=== PATIENT | male | born 1955 | race Native Hawaiian/Other Pacific Islander ===

== ENCOUNTER → 2017-04-11 14:50 | Inpatient (IN) | payer OTHER ==
[2015-12-21] VITALS (23 sets, daily range): BP systolic 101–149; BP diastolic 57–101; PULSE 64–140; RESP 14–37; TEMP 97.9–98.8; O2SAT 95–100
[2015-12-21 05:59] LABS: AUTOMATED NEUTROPHIL # 7.1 TH/MM3 (1.8-7.7); BASOPHIL % 0.3 % (0.0-2.0); EOSINOPHIL % 0.1 % (0.0-4.0); HEMATOCRIT 46.1 % (39.0-51.0); LYMPH % 11.9 % (9.0-44.0); MEAN CELL VOLUME 82.3 FL (80.0-100.0); MEAN CORPUSCULAR HEMOGLOBIN 27.1 PG (27.0-34.0); MONO % 6.7 % (0.0-8.0); PLATELET COUNT 197 TH/MM3 (150-450); RED CELL DISTRIBUTION WIDTH 14.3 % (11.6-17.2); WHITE BLOOD COUNT 8.7 TH/MM3 (4.0-11.0)
[2015-12-21 06:02] LABS: HEMO FLAGS AUTO DIFF
[2015-12-21 06:10] LABS: APTT (PATIENT) 22.4 SEC (22.6-28.8); PROTHROMBIN TIME - PATIENT 10.5 SEC (9.8-11.4)
--- NOTE | 2015-12-21 06:13 | RADRPT ---
EXAM DATE/TIME: 12/21/2015 05:52 [facility] COMPARISON: No previous studies available for comparison. INDICATIONS : Shortness of breath. MEDICAL HISTORY : Diabetes mellitus type II. Lymphoma. A-Fib SURGICAL HISTORY : None. ENCOUNTER: Initial ACUITY: 1 day PAIN SCORE: 0/10 LOCATION: Bilateral chest FINDINGS: A single view of the chest demonstrates the lungs to be symmetrically aerated without evidence of mas s, infiltrate or effusion. The cardiomediastinal contours are unremarkable. Osseous structures are intact. Old healed left-sided rib fractures. CONCLUSION: No acute intrathoracic disease. Michael Hamilton MD on December 21, 2015 at 6:11 Board Certified Radiologist. This report was verified electronically.
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
[2015-12-21 06:32] LABS: ALKALINE PHOSPHATASE 75 U/L (45-117); ALT (GPT) 28 U/L (12-78); ANION GAP 11 MEQ/L (5-15); AST (GOT) 26 U/L (15-37); BICARBONATE 23.8 MEQ/L (21.0-32.0); BLOOD UREA NITROGEN 19 MG/DL (7-18); CHLORIDE 100 MEQ/L (98-107); GLOMERULAR FILTRATION RATE 86 ML/MIN (>89); SODIUM (NA) 135 MEQ/L (136-145); TOTAL BILIRUBIN ADULT 0.4 MG/DL (0.2-1.0)
[2015-12-21 06:36] LABS: BANDS 6 % (0-6); EOSINOPHILS 1 % (0-4); METAMYELOCYTES 3 % (0-1); MYELOCYTES 2 % (0-0); NEUTROPHIL # MANUAL DIFF 7.4 TH/MM3 (1.8-7.7); PLATELET ESTIMATE SMEAR NORMAL (NORMAL); PLATELET MORPHOLOGY NORMAL (NORMAL); POLYS (SEG NEUTROPHILS) 74 % (16-70); SCAN/DIFF FINAL DIFF MANUAL; WBC DIFF SAMPLE 100
--- NOTE | 2015-12-21 06:41 | RADRPT ---
EXAM DATE/TIME: 12/21/2015 06:01 [facility] COMPARISON: CT BRAIN W/O CONTRAST, December 07, 2015, 17:22. MRI BRAIN W & W/O CONTRAST, December 07, 2015, 19:07. CT BR AIN W/O CONTRAST, December 11, 2015, 19:42. INDICATIONS : Slurred speech, altered mental status. RADIATION DOSE: 40.68 CTDIvol (mGy) MEDICAL HISTORY : Stroke. Diabetes mellitus type 2. Hypertension.Posterior brain tumor, Lymphoma. SURGICAL HISTORY : Recent brain biopsy. ENCOUNTER: Initial ACUITY: 1 day PAIN SCALE: 3/10 LOCATION: occipital TECHNIQUE: Multiple contiguous axial images were obtained of the head. Using automated exposure control and adj ustment of the mA and/or kV according to patient size, radiation dose was kept as low as reasonably a chievable to obtain optimal diagnostic quality images. FINDINGS: Today's exam is compared to the prior study. There is a new area of decreased density involving the l eft occipital lobe suggestive of a nonhemorrhagic infarction. The area of decreased density in the ri ght occipital lobe has increased in size compared to the prior exam. No focal or acute intracranial h emorrhage is demonstrated. There is no mass effect or midline shift. The ventricles are normal in siz e and midline in position. There is a juan jose hole on the right occipital bone consisting with patient's recent prior surgery. CONCLUSION: 1. No focal or acute intracranial hemorrhage. 2. There is a new area of decreased density in the left occipital lobe suggestive of a recent nonhemo rrhagic infarction. 3. The decreased density in the previously noted right occipital lobe has increased in size. Michael Hamilton MD on December 21, 2015 at 6:34 Board Certified Radiologist. This report was verified electronically.
--- NOTE | 2015-12-21 07:59 | PD ---
Physical Exam Narrative Assumed care of the patient at shift change. The plan was to admit the patient for worsening stroke. However the patient's critical condition deteriorated to the point where he was not really protecting his airway. He had very sonorous respirations and cannot follow commands. He is becoming more obtunded. I intubated the patient and I am re-scanning his head to look for hemorrhagic transformation. ICU has been paged. I am following results of the follow-up chest x-ray. ABG and urinalysis are pending. CRITICAL CARE NOTE: With evaluation of the patient, labs, EKG, receipt of radiologic studies, administration of medications, reevaluation the patient and discussion of the patient with the admitting physicians, the total critical care time was 35 minutes. Time to perform other separately billable procedures was not included in the critical care time. Data Data Last Documented VS Orders Electrocardiogram (12/21/15 05:46) Prothrombin Time / Inr (Pt) (12/21/15 05:46) Act Partial Throm Time (Ptt) (12/21/15 05:46) Complete Blood Count With Diff (12/21/15 05:46) Comprehensive Metabolic Panel (12/21/15 05:46) Troponin I (12/21/15 05:46) Urinalysis - C+S If Indicated (12/21/15 05:46) Ct Brain W/O Iv Contrast(Rout) (12/21/15 05:46) Chest, Single Ap (12/21/15 05:46) Ecg Monitoring (12/21/15 05:46) Iv Access Insert/Monitor (12/21/15 05:46) Oxygen Administration (12/21/15 05:46) Oximetry (12/21/15 05:46) Sodium Chloride 0.9% Flush (Ns Flush) (12/21/15 06:00) Ondansetron Inj (Zofran Inj) (12/21/15 06:22) Ondansetron Inj (Zofran Inj) (12/21/15 06:30) Diltiazem Inj (Cardizem Inj) (12/21/15 06:30) Vital Signs (Adult) Q15MX4,Q4H (12/21/15 06:28) ^ Methods Engineer / Telemetry (12/21/15 06:28) Cardiac Rhythm UMER.Q8H (12/21/15 06:28) ^ Notify Dr: Other (12/21/15 06:28) Diltiazem Inj (Cardizem Inj) (12/21/15 06:30) Acetaminophen (Tylenol) (12/21/15 06:45) Lorazepam Inj (Ativan Inj) (12/21/15 07:15) Etomidate Inj (Amidate Inj) (12/21/15 07:37) Succinylcholine Inj (Quelicin Inj) (12/21/15 07:37) Propofol 1000 Mg/100 Ml Inj (Diprivan 10 (12/21/15 07:46) Chest, Single Ap (12/21/15 ) Arterial Blood Gas (Abg) (12/21/15 ) Urinary Catheter Management UMER.Q8H (12/21/15 07:45) Admit Order (Ed Use Only) (12/21/15 08:06) Labs Dawood Park MD Dec 21, 2015 07:59 Chest, Single Ap (12/21/15 ) Ct Brain W/O Iv Contrast(Rout) (12/21/15 ) Arterial Blood Gas (Abg) (12/21/15 ) Urinary Catheter Management UMER.Q8H (12/21/15 07:45) Labs Laboratory Tests Test 12/21/15 05:50 White Blood Count 8.7 TH/MM3 Red Blood Count 5.60 MIL/MM3 Hemoglobin 15.2 GM/DL Hematocrit 46.1 % Mean Corpuscular Volume 82.3 FL Mean Corpuscular Hemoglobin 27.1 PG Mean Corpuscular Hemoglobin 33.0 % Concent Red Cell Distribution Width 14.3 % Platelet Count 197 TH/MM3 Mean Platelet Volume 8.8 FL Neutrophils (%) (Auto) 81.0 % Lymphocytes (%) (Auto) 11.9 % Monocytes (%) (Auto) 6.7 % Eosinophils (%) (Auto) 0.1 % Basophils (%) (Auto) 0.3 % Neutrophils # (Auto) 7.1 TH/MM3 Lymphocytes # (Auto) 1.0 TH/MM3 Monocytes # (Auto) 0.6 TH/MM3 Eosinophils # (Auto) 0.0 TH/MM3 Basophils # (Auto) 0.0 TH/MM3 CBC Comment AUTO DIFF Differential Total Cells 100 Counted Neutrophils % (Manual) 74 % Band Neutrophils % 6 % Lymphocytes % 7 % Monocytes % 7 % Eosinophils % 1 % Neutrophils # (Manual) 7.4 TH/MM3 Metamyelocytes 3 % Myelocytes 2 % Differential Comment FINAL DIFF MANUAL Platelet Estimate NORMAL Platelet Morphology Comment NORMAL Red Cell Morphology Comment NORMAL Prothrombin Time 10.5 SEC Prothromb Time International 1.0 RATIO Ratio Activated Partial 22.4 SEC Thromboplast Time Sodium Level 135 MEQ/L Potassium Level 5.0 MEQ/L Chloride Level 100 MEQ/L Carbon Dioxide Level 23.8 MEQ/L Anion Gap 11 MEQ/L Blood Urea Nitrogen 19 MG/DL Creatinine 0.90 MG/DL Estimat Glomerular Filtration 86 ML/MIN Rate Random Glucose 212 MG/DL Calcium Level 8.7 MG/DL Total Bilirubin 0.4 MG/DL Aspartate Amino Transf 26 U/L (AST/SGOT) Alanine Aminotransferase 28 U/L (ALT/SGPT) Alkaline Phosphatase 75 U/L Troponin I LESS THAN 0.02 NG/ML Total Protein 7.5 GM/DL Albumin 3.1 GM/DL Dawood Park MD Dec 21, 2015 07:59
[2015-12-21] MEDS: PROPOFOL 1000 MG/100 ML BTL IV PRN ×4 (08:25→22:12)
[2015-12-21 08:35] LABS: BLOOD GAS BASE EXCESS -1.8 mmol/L (-2-2); BLOOD GAS HCO3 22 mmol/L (22-26); BLOOD GAS METHEMOGLOBIN 2.3 % (0-2); BLOOD GAS O2 HGB SATURATION 93 % (90-100); BLOOD GAS OXYGEN CONTENT 18.4 Vol % (12.0-20.0); BLOOD GAS PCO2 35 mmHg (38-42); BLOOD GAS PO2 100 mmHG (61-120); BLOOD GAS TOTAL HGB 14.1 G/DL (12.0-16.0); CRITICAL VALUE NO; DRAW SITE LT RADIAL; FIO2 40 %; NUMBER OF ARTERIAL PUNCTURES 1; OXYGEN DEVICE VENTILATOR; STAT NO; TEMP CORR TO 98.6; ULNAR PULSE PRESENT; VENT SETTINGS AC/14/550/PEEP5
[2015-12-21 08:38] LABS: BLOOD, URINE NEG (NEG); GLUCOSE,URINE 1000 mg/dL (NEG); KETONE, URINE NEG (NEG); NITRITE,URINE NEG (NEG); PH, URINE 5.5 (5.0-8.5); URINE COLOR YELLOW (YELLW/STRAW)
[2015-12-21 08:41] LABS: COMMENT (UR) CATH-CULT NOT IND; CULTURE IF INDICATED CATH CULTURE NOT IND
--- NOTE | 2015-12-21 10:16 | RADRPT ---
EXAM DATE/TIME: 12/21/2015 07:46 [facility] COMPARISON: CHEST SINGLE AP, December 21, 2015, 5:52. INDICATIONS : Endotracheal tube placement MEDICAL HISTORY : Diabetes mellitus type II. Lymphoma. A-Fib SURGICAL HISTORY : None. ENCOUNTER: Initial ACUITY: 1 day PAIN SCORE: Non-responsive. LOCATION: Bilateral chest FINDINGS: An endotracheal tube has been placed and has its tip approximately 4 cm above the geno. Nasogastri c tube has its tip in the stomach. The heart and mediastinal structures are normal. The pulmonary v ascularity is also normal. The lungs are clear. Old healed fractures of the left rib cage are noted . CONCLUSION: 1. No acute cardiopulmonary disease. 2. Endotracheal tube in good position 4 cm above the geno. 3. Nasogastric tube in good position in the stomach. Eduardo Valenzuela MD on December 21, 2015 at 9:50 Board Certified Radiologist. This report was verified electronically.
--- NOTE | 2015-12-21 12:44 | RADRPT ---
EXAM DATE/TIME: 12/21/2015 10:00 [place] Corrected on: December 21, 2015; [facility] COMPARISON: MRI BRAIN W & W/O CONTRAST, December 07, 2015, 19:07. INDICATIONS : Mass. Altered mental status. CONTRAST: 18 cc Omniscan (gadodiamide) IV MEDICAL HISTORY : Hypertension. Diabetes mellitus type 2. Lymphoma. SURGICAL HISTORY : Left elbow. Ear surgery. ENCOUNTER: Initial ACUITY: 1 day PAIN SCORE: 0/10 LOCATION: cranial TECHNIQUE: Multiplanar, multisequence MRI of the brain was performed both prior to and following the administrat ion of paramagnetic contrast. FINDINGS: There is evidence of new restricted diffusion involving the left occipital lobe as well as enlargeme nt of the area of restricted diffusion within the right occipital lobe compared to the previous MRI d ated 12/07/15. The findings are suggestive of new left occipital infarct and possible worsening area of infarction within the right occipital lobe. There is evidence of enhancement of the right occipit al lobe which is indeterminate. The patient has had recent biopsy of the right occipital lobe to rul e out tumor but biopsy results are pending. There is a tiny focus of restricted diffusion within the right cerebellar hemisphere suggesting acute/subacute lacunar infarct. The ventricles, sulci and ci sterns are otherwise unremarkable. There is signal abnormality within the right occipital lobe in th e biopsy bed on the SWI images suggesting some hemorrhage related to the biopsy. No midline shift or extra-axial fluid collections are noted. There are no additional areas of enhancement within the bra in parenchyma. CONCLUSION: 1. New area of restricted diffusion within the left occipital lobe suggesting acute infarction. 2. Interval enlargement of the area of restricted diffusion within the right occipital lobe suggestin g probable extension of right occipital infarction. Underlying enhancement of the right occipital lo be is slightly worse than on the previous examination and is nonspecific. Biopsy has been performed in this region of the brain and the results are pending. 3. Tiny focal area of restricted diffusion within the right cerebellar hemisphere consistent with pro bable acute/subacute lacunar infarct. 3. There is signal abnormality on the SWI sequence within the right occipital lobe suggesting some h emorrhage in the biopsy bed. 4. No midline shift or extra axial fluid collections. The findings of the examination were discussed with Dr. Langston at 12: 20 p.m. on 12/21/15. Eduardo Valenzuela MD on December 21, 2015 at 12:13 Board Certified Radiologist. This report was verified electronically. Eduardo Valenzuela MD on December 21, 2015 at 14:56 Board Certified Radiologist. This report was verified electronically.
[2015-12-21] MEDS: SODIUM CHLOR 0.9% 1000 ML INJ 1,000 ML IV SCH (13:00)
[2015-12-21] MEDS: RESP: ALBUTEROL 2.5 MG/IPRATROPIUM 0.5 MG NEB (SCH) INH ×3 (13:00→20:29)
[2015-12-21] MEDS: levETIRAcetam 500 MG TAB PO SCH ×2 (13:45→21:43)
--- NOTE | 2015-12-21 14:22 | MH ---
cc: FRIEDA SEGOVIA M.D. DATE OF ADMISSION: 12/21/2015 DATE OF 1955 HISTORY OF PRESENT ILLNESS The patient is a 59-year-old male with past medical history of paroxysmal atrial fibrillation, hypertension, stage III a non-Hodgkin's lymphoma status post a chemotherapy last year. He received Rituxan CHOP. He presented to [facility] emergency department with altered mental status. Most of the history was obtained from reviewing medical records as the patient is poor historian. When he woke up of 4 o'clock this morning the patient had some right facial droop associated with headaches. Due to altered mental status CT scan of the brain was obtained which showed no focal or acute intracranial hemorrhage. However, there is an new area of decreased density in the left occipital lobe, suggestive of recent non hemorrhagic infarction and the decreased density in the previously noted right occipital lobe has increased in size. The patient was recently admitted back on December 06 with similar presentation and he had a right occipital juan jose hole brain biopsy by Dr. Marin on December 13. The pathology results pending. The patient became the patient noted to have very sonorous respirations and can and follow any commands in addition he was obtunded. He was subsequently intubated by the emergency department physician and MRI of the brain was obtained which showed a new area of restricted diffusion within the left occipital lobe suggesting acute infarction. No evidence of any acute hemorrhage, midline shift or a fluid collection. When seen the patient is sedated with Diprivan and on full mechanical ventilation. ABG post intubation showed a pH of 7.41, CO2 35, pAO2 100, bicarb of 22, saturation 93% on assist control ventilation rate of 14, tidal volume 550, PEEP five, FIO2 of 40%. RADIOLOGIC: Chest x-ray Post intubation showed ET tube above the geno in no acute cardiopulmonary process. His last echocardiogram was obtained in January of last year which showed an EF of 60% with no regional wall motion abnormalities. EKG on arrival showed A fib with RVR at rate of 114 beats per minute. The patient was given Cardizem 20 mg IV push in the emergency department and was initially placed on Cardizem drip. However, now is off. PAST MEDICAL HISTORY: Past medical history is significant for stage III a non-Hodgkin's lymphoma status post chemotherapy paroxysmal atrial fibrillation hypertension diabetes mellitus. PAST SURGICAL HISTORY Previous brain biopsy on December 13. Previous left arm surgery. ALLERGIES NO KNOWN DRUG ALLERGIES. FAMILY HISTORY Noncontributory. SOCIAL HISTORY Nondrinker smokes about one half-pack of cigarettes per day per records. MEDICATIONS: Medications reviewed REVIEW OF SYSTEMS As per HPI. Rest of the systems unobtainable. PHYSICAL EXAMINATION 59- year-old male intubated for airway protection. VITAL SIGNS: Afebrile, pulse of 85, blood pressure 119/79, saturation 100% vent setting. Assist control rate of 14, tidal volume 550, PEEP of 5, FIO2 of 40%. HEAD, EYES, EARS, NOSE, AND THROAT: Atraumatic, normocephalic Pupils equal, round, reactive to light and accommodation extraocular muscles intact. Conjunctivae pink. Nonicteric sclerae. Oral mucosa within normal. NECK: Supple. No JVD, adenopathy or thyromegaly. Trachea midline. Orally intubated. CARDIOVASCULAR SYSTEM: Irregularly irregular. Normal S1-S2. No murmurs, rubs or gallops noted. LUNGS: Pulmonary exam bilateral clear entry, equal. No rales or wheezing. ABDOMEN: Soft, nontender, no distension, positive bowel sounds. EXTREMITIES: No cyanosis, clubbing or edema. NEUROLOGIC: Intubated and sedated with Diprivan. LABORATORY DATA Sodium of 135, potassium 5, chloride 100, CO2 23, BUN 19, creatinine 0.9, glucose of 212, troponin less than 0.02. WBC 8.7, hemoglobin 15, hematocrit 46, platelet count 197, INR 1. PT 10.5, PTT 22.4. RADIOGRAPHY Chest x-ray Post intubation showed ET tube above the geno. No acute cardiopulmonary process. CT scan of the brain showed no focal or acute intracranial hemorrhage. No area of decreased density in the left occipital lobe suggestive of recent non hemorrhagic infarction. MRI of the brain showed new area of restricted diffusion within the left occipital lobe suggesting acute infarction and the area of restricted diffusion within the right occipital lobe, enlarged with probable extension of the right occipital infarction. No acute hemorrhage, midline shift or any fluid collection. IMPRESSION Altered mental status. Vent dependent respiratory failure. Acute left-sided CVA Stage III a non-Hodgkin's lymphoma status post chemotherapy last year Status post brain biopsy on December 13. Atrial fibrillation. Diabetes mellitus Hypertension RECOMMENDATIONS: 1. Continue with Diprivan infusion and for sedation and daily sedation vacation. 2. Monitor neuro status closely in addition we will consult neurology service. 3. Will continue with Keppra 500 mg b.i.d. 4. We will check carotid Doppler ultrasound bilaterally. 5. Continue with vent support and maintain sats above 92%. 6. Bronchodilators in the form of DuoNeb q. six. 7. We will initiate an ICU vent bundle. 8. ABG and chest x-ray post intubation reviewed. 9. Monitor heart rate and blood pressure closely and maintain MAP greater 65 mmHg. Echocardiogram was performed on December 07 which showed an EF of 60% with no regional wall motion abnormalities. 10. Monitor renal function Is and Os and electrolyte replacement per protocol. Will place on IV fluids in the form of NS at 75 ml an hour. 11. Place on Protonix 40 mg daily and start tube feeds in the form of Glucerna 1.5 with goal rate of 45 ml per hour. 12. Monitor CBC for signs of infections which include fever and WBC. Will hold off on antibiotics at this time. As there is no evidence of any infectious process. The chest x-ray On arrival showed no evidence of any acute cardiopulmonary disease and urinalysis negative for urinary tract infection. 13. We will monitor CBC. In addition we will consult Dr. Whyte from oncology service as the patient is known to them given underlying history of non-Hodgkin's lymphoma. 14. Follow up on pathology results of the brain biopsy that was obtained on December 13, by Dr. Marin. 15. Place on sliding scale insulin with Accu-Chek q. 6-hour for glycemic control. 16. GI prophylaxis with Protonix 40 mg daily and DVT prophylaxis with SCDs. Will hold off on chemical anticoagulation prophylaxis at this time. 17. Place central line if indicated. 18. Critical care time 60 minutes excluding procedures. MD ALECIA Shipley/earl /1:15 PM /1:35 PM
--- NOTE | 2015-12-21 16:18 | MG ---
cc: GUSTAVO PRICE M.D. Lab No: [id number] Date: 12/21/2015 Age: Sex: M Race: TECHNIQUE This is a 17 channel EEG. DESCRIPTION Back rhythm is slow in the delta frequency roughly 3-4 Hz amplitude is about 20-30 microvolts. There are no lateralizing features. There are no epileptiform features. Photic stimulation does not alter the background rhythm. INTERPRETATION Abnormal study consistent with a severe encephalopathy given the degree of delta slowing. MD JAIME Romero/earl /3:01 PM /4:17 PM
--- NOTE | 2015-12-21 17:56 | MB ---
cc: JANET BLANCO DATE OF CONSULTATION 12/21/15 HISTORY OF PRESENT ILLNESS A 59 year old left handed man with a history of hypertension, Non-insulin dependent diabetes, hypercholesterolemia, atrial fibrillation who had a history of lymphoma about a year ago. He was treated with chemo, thought to be lymphoma free, according to the , and then he had some generalized weakness, some rushing sounds in his right ear, some pressure in the right ear. He was admitted last week, was found to have a right occipital abnormality. He actually had that biopsies, results pending. Nevertheless, he went home, felt tired all over, felt a pressure behind his right eye, cam back into the hospital last evening and then evidently got somewhat lethargic and was given some Ativan in the emergency room and eventually wound up being intubated. He had some anxiety in the emergency room also. He was thought to have a right facial droop in the emergency room. His did not think it was anything new. There was some question of weakness on right side and Dr. Luna had seen him before. REVIEW OF SYSTEMS According to his , no history of myocardial infarction. He is not on coumadin. He takes a baby aspirin. No renal, hepatic, pulmonary disease, thyroid disease, lupus, ulcer, seizure or stroke. SOCIAL HISTORY He is a smoker, not a drinker. Lives with his . FAMILY Negative for cancer, seizure or stroke. MEDICATIONS At home, 1. Keppra 2. Steroids. He was on 1. Omeprazole 2. Phenergan 3. Decadron 4. Ativan as needed 5. Habitrol patch 6. Keppra 750 mg twice a day 7. Glucophage 8. Lipitor 9. Vasotec 10. Betapace. PAST MEDICAL HISTORY Seen by Dr. Luna 12/12/15. Had some tingling on the right side of his face, possibly some right-sided weakness at that time. PHYSICAL EXAMINATION VITAL SIGNS: On examination he had recent atrial fibrillation here, just started. Afebrile. 108/57, 14, 77. NECK: No carotid bruits. HEART: Regular rhythm. I do not detect a murmur. NEUROLOGIC: He is intubated and fully sedated. sharp. Pupils are equal. He is flaccid throughout. Toes are mute. No ankle clonus. Fully sedated on Diprivan. LABORATORY DATA Sedimentation rate was normal in 2007. CBC here is normal. HIV has been negative. He has CSF from the biopsy showed 10 white cells, 32 red cells. Basic metabolic profile was essentially normal. Glucose 212. Liver function tests normal. Troponin negative. B12 1400. Thyroid normal on last admission. Coags normal. ABG today - 7.41, 35, 100. IMAGING STUDIES Carotid ultrasound done was negative last month. CAT scan of the brain new left occipital abnormality and the older right occipital abnormality. Bur hole in that right area. Slight hypodensity there. MRI of the brain showed diffusion in the left occipital lobe, some underlying enhancement, tiny right cerebellar infarct that was actually seen on the prior scan I believe in retrospect. It appears to me there is some kind of midline mass whether it is the tongue or something else on the lower cuts also present, either extremely enlarged tongue or a mass there below the tongue on the MRI. IMPRESSION Bilateral occipital old infarcts and right cerebellar infarct with atrial fibrillation, likely the etiology. We will check an MRA of the [place] in the neck to make sure there is no vertebrobasilar stenosis. I note an echocardiogram done on the last admission showed a normal ejection fraction with normal valves and a normal left atrial size. He had the recent biopsy, would have to be cleared by neurosurgery if we could anticoagulate him. We will check an electroencephalogram on him. I will be following him with you in the hospital. We will also check an MR venogram of the brain to make sure there is no venous thrombosis. MD MARINA Marie/ /2:39 PM /5:34 PM
[2015-12-21] MEDS: PANTOPRAZOLE SODIUM 40 MG VIAL IV SCH (18:50)
[2015-12-21] MEDS: INSULIN NovoLIN REGULAR SUPPLEMENTAL SCALE SQ SCH (19:00)
--- NOTE | 2015-12-21 19:25 | EKG ---
Date Performed: 12/21/2015 Time Performed: 05:46:14 PTAGE: 59 years EKG: Atrial fibrillation with rapid ventricular response Compared to previous tracing, the atria l fibrillation is new. Abnormal ECG PREVIOUS TRACING : 12/11/2015 19.48 DOCTOR: Kate Moncada Interpretating Date/Time 12/21/2015 19:24:06
[2015-12-21] MEDS: HEPARIN SODIUM - SQ 10,000 UNITS/ML VIAL SQ SCH (21:43)
[2015-12-22] VITALS (21 sets, daily range): BP systolic 126–161; BP diastolic 79–90; PULSE 80–104; RESP 16–22; TEMP 98.7–99.8; O2SAT 96–100
[2015-12-22] MEDS: INSULIN NovoLIN REGULAR SUPPLEMENTAL SCALE SQ SCH ×4 (01:00→18:50)
[2015-12-22] MEDS: RESP: ALBUTEROL 2.5 MG/IPRATROPIUM 0.5 MG NEB (SCH) INH ×4 (03:17→21:47)
[2015-12-22] MEDS: CHLORHEXIDINE GLUCONATE 2 % 1 PACK (2 CLOTHS) TOP SCH (03:38)
[2015-12-22] MEDS: SODIUM CHLOR 0.9% 1000 ML INJ 1,000 ML IV SCH ×2 (03:38→17:00)
[2015-12-22] MEDS: PROPOFOL 1000 MG/100 ML BTL IV PRN ×2 (03:39→06:25)
[2015-12-22 06:23] LABS: INTERNATIONAL NORMALIZED RATIO 1.1 RATIO; PROTHROMBIN TIME - PATIENT 11.5 SEC (9.8-11.4)
[2015-12-22 06:24] LABS: AUTOMATED NEUTROPHIL # 6.9 TH/MM3 (1.8-7.7); BASOPHIL % 0.2 % (0.0-2.0); EOSINOPHIL % 0.4 % (0.0-4.0); HEMO FLAGS DIFF FINAL; LYMPH % 13.7 % (9.0-44.0); LYMPHOCYTE # 1.2 TH/MM3 (1.0-4.8); MEAN CELL VOLUME 82.5 FL (80.0-100.0); MEAN CORPUSCULAR HGB CONC 32.8 % (32.0-36.0); MONO % 9.3 % (0.0-8.0); NEUT % 76.4 % (16.0-70.0); PLATELET COUNT 153 TH/MM3 (150-450); RED BLOOD COUNT 5.33 MIL/MM3 (4.50-5.90); RED CELL DISTRIBUTION WIDTH 14.5 % (11.6-17.2)
[2015-12-22 06:42] LABS: MAGNESIUM 1.9 MG/DL (1.5-2.5); POTASSIUM 4.1 MEQ/L (3.5-5.1)
--- NOTE | 2015-12-22 08:02 | HHI.CCPN ---
Subjective Remarks/Hospital Course The patient is a 59-year-old male with past medical history of paroxysmal atrial fibrillation, hypertension, stage III a non-Hodgkin's lymphoma status post a chemotherapy last year. He received Rituxan CHOP. He presented to [facility] emergency department with altered mental status. Most of the history was obtained from reviewing medical records as the patient is poor historian. When he woke up of 4 o'clock this morning the patient had some right facial droop associated with headaches. Due to altered mental status CT scan of the brain was obtained which showed no focal or acute intracranial hemorrhage. However, there is an new area of decreased density in the left occipital lobe, suggestive of recent non hemorrhagic infarction and the decreased density in the previously noted right occipital lobe has increased in size. The patient was recently admitted back on December 06 with similar presentation and he had a right occipital juan jose hole brain biopsy by Dr. Marin on December 13. The pathology results pending. The patient became the patient noted to have very sonorous respirations and can and follow any commands in addition he was obtunded. He was subsequently intubated by the emergency department physician and MRI of the brain was obtained which showed a new area of restricted diffusion within the left occipital lobe suggesting acute infarction. No evidence of any acute hemorrhage, midline shift or a fluid collection. When seen the patient is sedated with Diprivan and on full mechanical ventilation. ABG post intubation showed a pH of 7.41, CO2 35, pAO2 100, bicarb of 22, saturation 93% on assist control ventilation rate of 14, tidal volume 550, PEEP five, FIO2 of 40%. Chest x-ray Post intubation showed ET tube above the geno in no acute cardiopulmonary process. His last echocardiogram was obtained in January of last year which showed an EF of 60% with no regional wall motion abnormalities. EKG on arrival showed A fib with RVR at rate of 114 beats per minute. The patient was given Cardizem 20 mg IV push in the emergency department and was initially placed on Cardizem drip. However, now is off. 12/21 No events overnight. Sedated with Diprivan and intubated. Afebrile. For MRA brain , carotids and MRV brain today . Objective - Vital Signs Date Time Temp Pulse Resp B/P Pulse Ox O2 Delivery O2 Flow Rate FiO2 12/22/15 07:28 100 40 12/22/15 06:00 93 12/22/15 04:00 99.1 16 154/86 12/21/15 12:12 Ventilator 12/21/15 07:24 3 I/O 12/21/15 12/21/15 12/21/15 07:59 15:59 23:59 Intake Total 291 ml Output Total 950 ml Balance -659 ml Result Diagram: 12/22/15 0448 12/22/15 0448 Other Results Laboratory Tests Test 12/21/15 12/21/15 12/22/15 08:20 08:24 04:48 Urine Color YELLOW Urine Turbidity CLEAR Urine pH 5.5 Urine Specific [place] 1.019 Urine Protein NEG mg/dL Urine Glucose (UA) 1000 mg/dL Urine Ketones NEG mg/dL Urine Occult Blood NEG Urine Nitrite NEG Urine Bilirubin NEG Urine Urobilinogen LESS THAN 2.0 MG/DL Urine Leukocyte Esterase NEG Urine WBC 1 /hpf Microscopic Urinalysis Comment CATH-CULT NOT IND Blood Gas Puncture Site LT RADIAL Blood Gas Patient Temperature 98.6 Blood Gas HCO3 22 mmol/L Blood Gas Base Excess -1.8 mmol/L Blood Gas Oxygen Saturation 93 % Arterial Blood pH 7.41 Arterial Blood Partial 35 mmHg Pressure CO2 Arterial Blood Partial 100 mmHG Pressure O2 Arterial Blood Oxygen Content 18.4 Vol % Arterial Blood 2.0 % Carboxyhemoglobin Arterial Blood Methemoglobin 2.3 % Blood Gas Hemoglobin 14.1 G/DL Oxygen Delivery Device VENTILATOR Blood Gas Ventilator Setting AC/14/550/PEEP5 Blood Gas Inspired Oxygen 40 % White Blood Count 9.0 TH/MM3 Red Blood Count 5.33 MIL/MM3 Hemoglobin 14.4 GM/DL Hematocrit 44.0 % Mean Corpuscular Volume 82.5 FL Mean Corpuscular Hemoglobin 27.0 PG Mean Corpuscular Hemoglobin 32.8 % Concent Red Cell Distribution Width 14.5 % Platelet Count 153 TH/MM3 Mean Platelet Volume 8.9 FL Neutrophils (%) (Auto) 76.4 % Lymphocytes (%) (Auto) 13.7 % Monocytes (%) (Auto) 9.3 % Eosinophils (%) (Auto) 0.4 % Basophils (%) (Auto) 0.2 % Neutrophils # (Auto) 6.9 TH/MM3 Lymphocytes # (Auto) 1.2 TH/MM3 Monocytes # (Auto) 0.8 TH/MM3 Eosinophils # (Auto) 0.0 TH/MM3 Basophils # (Auto) 0.0 TH/MM3 CBC Comment DIFF FINAL Differential Comment Prothrombin Time 11.5 SEC Prothromb Time International 1.1 RATIO Ratio Sodium Level 134 MEQ/L Potassium Level 4.1 MEQ/L Chloride Level 96 MEQ/L Carbon Dioxide Level 25.0 MEQ/L Anion Gap 13 MEQ/L Blood Urea Nitrogen 20 MG/DL Creatinine 0.78 MG/DL Estimat Glomerular Filtration 102 ML/MIN Rate Random Glucose 114 MG/DL Calcium Level 8.4 MG/DL Magnesium Level 1.9 MG/DL Imaging Last Impressions Head CT 12/21/15545 Signed Impressions: Service Date/Time: December 06:01 - CONCLUSION: 1. No focal or acute intracranial hemorrhage. 2. There is a new area of decreased density in the left occipital lobe suggestive of a recent nonhemorrhagic infarction. 3. The decreased density in the previously noted right occipital lobe has increased in size. Michael Hamilton MD Chest X-Ray 12/21/15545 Signed Impressions: Service Date/Time: December 05:52 - CONCLUSION: No acute intrathoracic disease. Michael Hamilton MD Brain MRI 12/21/15 0000 Signed Impressions: Service Date/Time: December 10:00 - CONCLUSION: 1. New area of restricted diffusion within the left occipital lobe suggesting acute infarction. 2. Interval enlargement of the area of restricted diffusion within the right occipital lobe suggesting probable extension of right occipital infarction. Underlying enhancement of the right occipital lobe is slightly worse than on the previous examination and is nonspecific. Biopsy has been performed in this region of the brain and the results are pending. 3. Tiny focal area of restricted diffusion within the right cerebellar hemisphere consistent with probable acute/subacute lacunar infarct. 3. There is signal abnormality on the SWI sequence within the right occipital lobe suggesting some hemorrhage in the biopsy bed. 4. No midline shift or extra axial fluid collections. The findings of the examination were discussed with Dr. Langston at 12: 20 p.m. on 12/21/15. Eduardo Valenzuela MD Objective Remarks GENERAL: Well-nourished, well-developed patient. SKIN: Warm and dry. HEAD: Normocephalic. EYES: No scleral icterus. No injection or drainage. NECK: Supple, trachea midline. No JVD or lymphadenopathy. Orally intubated CARDIOVASCULAR: Regular rate and rhythm without murmurs, gallops, or rubs. RESPIRATORY: Breath sounds equal bilaterally. No accessory muscle use. GASTROINTESTINAL: Abdomen soft, non-tender, nondistended. MUSCULOSKELETAL: No cyanosis, or edema. BACK: Nontender without obvious deformity. No CVA tenderness. Neuro: Sedated, intubated A/P Assessment and Plan IMPRESSION Altered mental status. Vent dependent respiratory failure. Acute left-sided CVA Stage III a non-Hodgkin's lymphoma status post chemotherapy last year Status post brain biopsy on December 13. Atrial fibrillation. Diabetes mellitus Hypertension Plan Neuro:On Diprivan infusion for sedation and daily sedation vacation. Monitor neuro status closely, Neuro: Dr. De Leon, on Keppra 500 mg b.i.d. EEG 12/20: Severe encephalopathy. For MRA brain, carotids and MRV brain today Pulm: Continue with vent support and maintain sats >92%. Bronchodilators, ICU vent bundle. CV: Monitor HR and BP keep MAP>65mmHg Echo from 12/07 showed an EF of 60% with no regional wall motion abnormalities. : Monitor renal function Is and Os and electrolyte replacement per protocol. On NS at 75 ml an hour. GI: On TF-Glucerna 1.5 with goal rate of 45 ml per hour. ID: Monitor CBC for signs of infections( fever and WBC). CXR on arrival showed no evidence of any acute cardiopulmonary disease and UA negative for UTI Heme: Monitor CBC. Consult Oncology-Dr. Whyte ( [facility]) follow up on path results. s/p brain biopsy on December 13, by Dr. Marin. Endo: On SSI with Accu-Chek q. 6-hour for glycemic control. GI prophylaxis with Protonix 40 mg daily and DVT prophylaxis with SCDs/heparin SQ. Coumadin started by neuro monitor INR/PT CCT 35 mins Wil Langston MD Dec 22, 2015 08:02
[2015-12-22] MEDS: PANTOPRAZOLE SODIUM 40 MG VIAL IV SCH (08:05)
[2015-12-22] MEDS: levETIRAcetam 500 MG TAB PO SCH ×2 (08:05→20:52)
[2015-12-22] MEDS: HEPARIN SODIUM - SQ 10,000 UNITS/ML VIAL SQ SCH ×2 (08:05→20:52)
--- NOTE | 2015-12-22 08:46 | HHI.PR ---
Subjective Remarks afib Objective Vital Signs Date Time Temp Pulse Resp B/P Pulse Ox O2 Delivery O2 Flow Rate FiO2 12/22/15 07:28 100 40 12/22/15 06:00 93 12/22/15 04:00 91 12/22/15 04:00 99.1 91 16 154/86 100 12/22/15 03:20 99 40 12/22/15 02:00 86 12/22/15 01:10 99 40 12/22/15 00:00 80 12/22/15 00:00 98.7 80 16 142/87 100 12/21/15 22:24 99 40 12/21/15 22:00 75 12/21/15 20:35 99 40 12/21/15 20:00 98.8 70 16 122/79 100 12/21/15 20:00 70 12/21/15 18:00 66 12/21/15 16:00 98.5 64 16 113/76 100 12/21/15 16:00 64 12/21/15 15:41 100 40 12/21/15 14:00 91 12/21/15 13:00 98.0 86 16 107/78 100 12/21/15 12:30 100 100 12/21/15 12:12 77 14 108/57 100 Ventilator 40 12/21/15 12:10 100 40 12/21/15 11:08 82 18 109/72 100 Ventilator 40 12/21/15 10:45 82 14 101/71 100 Ventilator 40 12/21/15 10:05 99 60 12/21/15 09:00 97 14 124/73 100 Ventilator I/O 12/21/15 12/21/15 12/21/15 12/22/15 12/22/15 12/22/15 07:00 15:00 23:00 07:00 15:00 23:00 Intake Total 291 ml 275 ml Output Total 950 ml 350 ml Balance -659 ml -75 ml Intake IV Total 281 ml 265 ml Tube Feeding 10 ml 10 ml Output Urine Total 950 ml 350 ml Stool Total 0 ml 0 ml Tube Feeding Residual Discard 0 ml Result Diagram: 12/22/158 12/22/158 Other Results mra/v pend Objective Remarks sedated no change Assessment and Plan Assessment and Plan after mra/v ok to dc sedatives and should be able to come off vent bilat cva coumadin started i would ask med team to dose and follow inr i dw Haley,Steven Naranjo MD Dec 22, 2015 08:46
--- NOTE | 2015-12-22 11:11 | RADRPT ---
EXAM DATE/TIME: 12/22/2015 09:22 [facility] COMPARISON: MRI BRAIN W & W/O CONTRAST, December 21, 2015, 10:00. INDICATIONS : Altered mental status. MEDICAL HISTORY : Hypertension. Diabetes mellitus type 2. SURGICAL HISTORY : Ear surgery. ENCOUNTER: Subsequent ACUITY: 2 day PAIN SCORE: 0/10 LOCATION: cranial Please note a normal MRA of the brain does not entirely exclude the possibility of a small aneurysm, nor the possibility of distal intracranial vessel disease. TECHNIQUE: 3D time of flight MRA was performed. Source images, multiplanar STS MIP, and 3D volume MIP reconstru ctions were reviewed. FINDINGS: ANTERIOR CIRCULATION: Inflow vessels are patent. Anterior and middle cerebral arteries are patent without aneurysmal diseas e. POSTERIOR CIRCULATION: Visualized portions of the distal vertebral arteries are patent with a filling defect identified in t he distal right. Both vessels appeared to occlude near their PICA branch with occlusion of the entire basilar system and posterior cerebral arteries. CONCLUSION: 1. 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 2. Anterior circulation remains patent without aneurysmal disease. Bobby Gray MD on December 22, 2015 at 10:40 Board Certified Radiologist. This report was verified electronically.
--- NOTE | 2015-12-22 11:25 | RADRPT ---
EXAM DATE/TIME: 12/22/2015 09:22 [facility] COMPARISON: No previous studies available for comparison. INDICATIONS : Altered mental status. CONTRAST: 20 cc Omniscan (gadodiamide) IV MEDICAL HISTORY : Hypertension. Diabetes mellitus type 2. SURGICAL HISTORY : Ear surgery ENCOUNTER: Subsequent ACUITY: 2 day PAIN SCORE: 0/10 LOCATION: cranial Percent stenosis is calculated using the diameter of the stenotic region over the diameter of the nor mal distal internal carotid artery. TECHNIQUE: Bolus infused MRA of the extracranial circulation was performed using a neurovascular coil. Post pro cessing was performed including rotationg subvolume maximum intensity projections of each carotid art hernesto, rotating full volume maximum intensity projections of both carotid arteries, sagittal and garay l sliding thin slab reformations of each carotid artery, and left oblique sliding thin slab reformati on through the aortic arch to include the origin of the arch branch vessels. FINDINGS: AORTIC ARCH: There is direct origin of the left vertebral artery from the aortic arch. Arch vessels are widely pat ent. RIGHT CAROTID: The common carotid artery is intact. The carotid bulb has a normal configuration without ulceration or narrowing. The internal carotid artery lumen is smooth without stenosis. The external carotid ar daily is intact. LEFT CAROTID: The common carotid artery is intact. The carotid bulb has a normal configuration without ulceration or narrowing. The internal carotid artery lumen is smooth without stenosis. The external carotid ar daily is intact. VERTEBRALS: The vertebral arteries have a symmetric diameter. No stenotic lesions are seen. 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 No evidence of carotid stenosis. Glen Zamora MD on December 22, 2015 at 11:20 Board Certified Radiologist. This report was verified electronically.
--- NOTE | 2015-12-22 12:07 | RADRPT ---
EXAM DATE/TIME: 12/22/2015 09:22 COMPARISON: MRI BRAIN W & W/O CONTRAST, December 21, 2015, 10:00. INDICATIONS : Altered mental status. Sinus thrombosis. CONTRAST: 20 cc Omniscan (gadodiamide) IV MEDICAL HISTORY : Hypertension. Diabetes mellitus type 2. SURGICAL HISTORY : Ear surgery. ENCOUNTER: Subsequent ACUITY: 2 day PAIN SCORE: 0/10 LOCATION: head FINDINGS: MRV was performed. Normal signal is seen throughout the major venous sinuses. There is some asymmetry amongst the transverse sinuses. There is considerable variability in the anatomy within this locatio n. No filling defects are observed. CONCLUSION: Normal MRV. Jonel Jones Jr., MD on December 22, 2015 at 11:58 Board Certified Radiologist. This report was verified electronically.
--- NOTE | 2015-12-22 15:23 | RADRPT ---
EXAM DATE/TIME: 12/22/2015 14:37 This report includes an Addendum and supersedes previous reports for this exam. [facility] COMPARISON: MRA BRAIN W/O CONTRAST, December 22, 2015, 9:22. CT BRAIN W/O CONTRAST, December 11, 2015, 19:42. CT BRAIN W /O CONTRAST, December 21, 2015, 6:01. MRI BRAIN W & W/O CONTRAST, December 21, 2015, 10:00. INDICATIONS : Altered mental status. MEDICAL HISTORY : Hypertension. Diabetes mellitus type 2. SURGICAL HISTORY : Ear surgery. ENCOUNTER: Subsequent ACUITY: 2 day PAIN SCORE: 0/10 LOCATION: cranial TECHNIQUE: Multiplanar, multisequence MRI of the brain was performed without contrast. FINDINGS: There is diffusion restriction in mild T2 prolongation now heterogeneously involving portions of the brain stem including the majority of the colin as well as midbrain and upper medulla right of midline. Patchy involvement of the right cerebellar hemisphere and vermis noted. Extensive signal change agai n identified in the occipital lobes bilaterally. Increasing baseline T1 signal present in the occipit al regions likely indicate some petechial hemorrhage, this increased in prominence from yesterday's e xam. The anterior circulation territories remains stable and grossly unremarkable. CONCLUSION: Worsening brain appearance with abnormal signal developing in large portions of the brainstem. Glen Zamora MD on December 22, 2015 at 15:05 Board Certified Radiologist. This report was verified electronically. ADDENDUM: Upon further review of images there is signal identified within the basilar artery consistent with th rombosis. Jonel Jones Jr., MD on December 22, 2015 at 17:59 Board Certified Radiologist. This report was verified electronically.
--- NOTE | 2015-12-22 18:40 | HHI.PR ---
Subjective Remarks afib Objective Vital Signs Date Time Temp Pulse Resp B/P Pulse Ox O2 Delivery O2 Flow Rate FiO2 12/22/15 18:00 102 12/22/15 16:00 40 12/22/15 16:00 99.8 98 20 147/85 100 12/22/15 16:00 98 12/22/15 15:18 99 40 12/22/15 14:15 100 100 12/22/15 14:00 99 12/22/15 12:00 99.7 102 21 142/90 100 12/22/15 12:00 102 12/22/15 11:38 100 40 12/22/15 10:03 100 100 12/22/15 10:03 40 12/22/15 10:00 97 12/22/15 08:00 99.5 96 22 161/83 96 12/22/15 08:00 96 12/22/15 07:28 100 40 12/22/15 06:00 93 12/22/15 04:00 91 12/22/15 04:00 99.1 91 16 154/86 100 12/22/15 03:20 99 40 12/22/15 02:00 86 12/22/15 01:10 99 40 12/22/15 00:00 80 12/22/15 00:00 98.7 80 16 142/87 100 12/21/15 22:24 99 40 12/21/15 22:00 75 12/21/15 20:35 99 40 12/21/15 20:00 98.8 70 16 122/79 100 12/21/15 20:00 70 I/O 12/21/15 12/21/15 12/21/15 12/22/15 12/22/15 12/22/15 07:00 15:00 23:00 07:00 15:00 23:00 Intake Total 291 ml 275 ml 720 ml Output Total 950 ml 350 ml 180 ml Balance -659 ml -75 ml 540 ml Intake IV Total 281 ml 265 ml 522 ml Tube Feeding 10 ml 10 ml 118 ml Other 80 ml Output Urine Total 950 ml 350 ml 180 ml Stool Total 0 ml 0 ml Tube Feeding Residual Discard 0 ml Result Diagram: 12/22/15 0448 12/22/15 0448 Objective Remarks off sedatives 6 hours comatose ? if some inf and r eye lat moved? unclear decrticate posture r arm to pain toes down now Assessment and Plan Assessment and Plan mrv shows basilar occlusion and mri shows sign bilat occipital and some small r cbllr acute cva the colin is slightly hyperintense almost full thickness and looks like major pontine infarct however not as bright as we usually see with infarct he could have a penumbra effect in colin so could be recoverable or just needs time to change signal plan is to keep bp up recheck mri friday if more bright then family thinking of decisions no sedatives i rec chemical code only will consider we discussed and we will keep anticoag going for now and i told her risk of bleeding into upper brain with some blood signal in original cva i dw dr vick and nitin cancino and neither felt it would be helpful to try and extract basilar clot and could kill him they both felt the colin was infarcted he could be locked in he is acting as if colin is infarcted although slight chance it could be stunned/ penumbra neuro will follow over weekend i will be back friday Steven De Leon MD Dec 22, 2015 18:40
--- NOTE | 2015-12-22 19:04 | MB ---
cc: RORY WHYTE M.D. DATE OF CONSULTATION 12/22/15 REASON FOR CONSULTATION Consult requested by Dr. Langston for evaluation of non-Hodgkin's lymphoma. HISTORY OF PRESENT ILLNESS This is a 60 year-old male. He has a history of hypertension and hypercholesterolemia. He was diagnosed with non-Hodgkin's lymphoma in January of 2015 when he presented with severe abdominal pain and sweating. The CAT scan of the abdomen and pelvis showed retroperitoneal, mesenteric and iliac lymphadenopathy. The CAT scan of the chest also showed left axillary lymphadenopathy. The bone marrow was negative. He has a stage IIIA non-Hodgkin's lymphoma and was treated with six cycles of Rituxan and CHOP chemotherapy which he completed in May of 2015. The patient went into remission. The patient had restaging CAT scan of the chest, abdomen and pelvis in October of this year and no evidence of residual or recurrent disease noted. He was kept on observation. The patient was admitted to [facility] approximately about 2 weeks ago with headache. The patient was found to have a possible brain mass. Neurology and neurosurgery were consulted. The patient underwent spinal tap which came back negative, Flow cytometry of spinal fluid was also negative. The patient subsequently underwent brain biopsy by Dr. Marin. The result of that is still pending. The patient was complaining of pain and abnormal sound in the right ear with numbness on the right side of the face. The lesion in the brain was also on the right side of the brain. The patient was evaluated by neurologist, Dr. Luna. The patient was started on Keppra for possible seizures. The patient was discharged to home over the weekend, to be followed up as an outpatient. The patient had an appointment with me today in the office. However, the patient was brought in yesterday after his noticed change in mental status. The patient had stopped taking the Keppra for the last few days as that was making him drowsy. When the patient was brought into the emergency room he had severe anxiety. His mental status deteriorated and he become obtunded and lethargic. The patient was intubated to protect his airway. He had a CAT scan and an MRI of the brain which shows acute stroke. The patient is now admitted to the hospital. He is on the ventilator. Neurology has been consulted. Dr. De Leon saw him. He had ordered multiple tests and have started him on Coumadin. I have been asked to see him for the lymphoma. The patient had repeat CAT scan of the chest, abdomen and pelvis on his last admission (a month ago) which did not show any evidence of residual or recurrent lymphoma. His is at the bedside. The history is obtained through her. The rest of the review of systems is unable to obtain as the patient is on the ventilator. PAST MEDICAL HISTORY Non-Hodgkin's lymphoma, diabetes mellitus, heart disease, irregular heartbeat, hypercholesterolemia, hypertension. PAST SURGICAL HISTORY Zqecri-V-Crbx placement, recently had a brain mass biopsy. ALLERGIES None. MEDICATIONS Please see EMR. FAMILY HISTORY The family history is noncontributory. SOCIAL HISTORY The patient still smokes cigarettes but he does not drink alcohol. PHYSICAL EXAMINATION GENERAL: This is a well-developed, well-nourished white male who is on the ventilator, sedated. VITAL SIGNS: Temperature 99.7, heart rate is 102, blood pressure 142/90, O2 suture 100%. HEENT: PERRLA, EOMI. ET-tube noted. Right facial drooping noted. NECK: No lymphadenopathy. LUNGS: The lungs are clear. No wheezing, rhonchi or rales. HEART: Heart is irregularly irregular. ABDOMEN: Abdomen is soft, not distended. EXTREMITIES: No pedal edema. NEUROLOGY: The patient is sedated. SKIN: No significant lesions are noted. ASSESSMENT 1. Acute CVA. 2. Atrial fibrillation. 3. Brain mass status post biopsy on last admission, the pathology report is still pending. 4. Non-Hodgkin's lymphoma status post six cycles of Rituxan and CHOP chemotherapy completed last May. He has no evidence of residual or recurrent disease on the CAT scan of the chest, abdomen and pelvis done in October and again in November. PLAN I have reviewed his available records and I have discussed with the patient's at the bedside. We discussed that the patient unfortunately has acute stroke. Dr. De Leon, neurologist, has seen the patient yesterday and have started him on subcu heparin and Coumadin. He also has ordered MRA of the brain, MRV of the brain and MRA of the carotid. These will be done today as the patient is going down to radiology right now. I had called the pathology department for the results of the brain biopsy. I have been told that Dr. Horn has sent the specimen yesterday to [facility] to get a second opinion. The result would be ready sometime next week as I have been told by the pathology department. At this time the patient needed to be treated for acute stroke and I will leave it up to medical team and neurology for the management. No acute oncology intervention is required at this time. I have discussed the case with civil defense director, Dr. Langston. I have discussed with the patient's as well regarding his condition. Further recommendations based on his hospital stay. Thank you for asking my opinion. Susie Whyte MD /EO /6:03 PM /6:41 PM MTDD
[2015-12-22] MEDS: CHLORHEXIDINE 0.12% (ORAL KIT) 15 ML CUP MT SCH (20:51)
[2015-12-23] VITALS (19 sets, daily range): BP systolic 127–138; BP diastolic 74–84; PULSE 88–107; RESP 17–19; TEMP 99–100.7; O2SAT 96–100
[2015-12-23] MEDS: INSULIN NovoLIN REGULAR SUPPLEMENTAL SCALE SQ SCH ×4 (01:00→19:00)
[2015-12-23] MEDS: CHLORHEXIDINE GLUCONATE 2 % 1 PACK (2 CLOTHS) TOP SCH (04:00)
[2015-12-23] MEDS: RESP: ALBUTEROL 2.5 MG/IPRATROPIUM 0.5 MG NEB (SCH) INH ×4 (04:03→22:00)
[2015-12-23 04:58] LABS: AUTOMATED NEUTROPHIL # 7.5 TH/MM3 (1.8-7.7); BASOPHIL % 0.2 % (0.0-2.0); EOSINOPHIL # 0.2 TH/MM3 (0-0.4); EOSINOPHIL % 1.5 % (0.0-4.0); HEMATOCRIT 40.6 % (39.0-51.0); HEMO FLAGS DIFF FINAL; LYMPH % 14.7 % (9.0-44.0); LYMPHOCYTE # 1.5 TH/MM3 (1.0-4.8); MEAN CELL VOLUME 81.7 FL (80.0-100.0); MEAN CORPUSCULAR HEMOGLOBIN 26.9 PG (27.0-34.0); MEAN CORPUSCULAR HGB CONC 32.9 % (32.0-36.0); MONO % 8.1 % (0.0-8.0); NEUT % 75.5 % (16.0-70.0); PLATELET COUNT 164 TH/MM3 (150-450); RED BLOOD COUNT 4.97 MIL/MM3 (4.50-5.90); WHITE BLOOD COUNT 9.9 TH/MM3 (4.0-11.0)
[2015-12-23 05:07] LABS: INTERNATIONAL NORMALIZED RATIO 2.2 RATIO; PROTHROMBIN TIME - PATIENT 24.2 SEC (9.8-11.4)
[2015-12-23 05:17] LABS: BICARBONATE 26.4 MEQ/L (21.0-32.0)
[2015-12-23 05:24] LABS: POTASSIUM 3.6 MEQ/L (3.5-5.1)
[2015-12-23] MEDS: SODIUM CHLOR 0.9% 1000 ML INJ 1,000 ML IV SCH ×2 (06:26→18:50)
[2015-12-23] MEDS: CHLORHEXIDINE 0.12% (ORAL KIT) 15 ML CUP MT SCH ×2 (08:00→20:00)
--- NOTE | 2015-12-23 08:34 | HHI.CCPN ---
Subjective Remarks/Hospital Course The patient is a 59-year-old male with past medical history of paroxysmal atrial fibrillation, hypertension, stage III a non-Hodgkin's lymphoma status post a chemotherapy last year. He received Rituxan CHOP. He presented to [facility] emergency department with altered mental status. Most of the history was obtained from reviewing medical records as the patient is poor historian. When he woke up of 4 o'clock this morning the patient had some right facial droop associated with headaches. Due to altered mental status CT scan of the brain was obtained which showed no focal or acute intracranial hemorrhage. However, there is an new area of decreased density in the left occipital lobe, suggestive of recent non hemorrhagic infarction and the decreased density in the previously noted right occipital lobe has increased in size. The patient was recently admitted back on December 06 with similar presentation and he had a right occipital juan jose hole brain biopsy by Dr. Marin on December 13. The pathology results pending. The patient became the patient noted to have very sonorous respirations and can and follow any commands in addition he was obtunded. He was subsequently intubated by the emergency department physician and MRI of the brain was obtained which showed a new area of restricted diffusion within the left occipital lobe suggesting acute infarction. No evidence of any acute hemorrhage, midline shift or a fluid collection. When seen the patient is sedated with Diprivan and on full mechanical ventilation. ABG post intubation showed a pH of 7.41, CO2 35, pAO2 100, bicarb of 22, saturation 93% on assist control ventilation rate of 14, tidal volume 550, PEEP five, FIO2 of 40%. Chest x-ray Post intubation showed ET tube above the geno in no acute cardiopulmonary process. His last echocardiogram was obtained in January of last year which showed an EF of 60% with no regional wall motion abnormalities. EKG on arrival showed A fib with RVR at rate of 114 beats per minute. The patient was given Cardizem 20 mg IV push in the emergency department and was initially placed on Cardizem drip. However, now is off. 12/21 No events overnight. Sedated with Diprivan and intubated. Afebrile. For MRA brain , carotids and MRV brain today . 12/22 Patient remains intubated, off sedation. T: 100.1 at midnight. Objective - Vital Signs Date Time Temp Pulse Resp B/P Pulse Ox O2 Delivery O2 Flow Rate FiO2 12/23/15 06:00 96 12/23/15 04:02 99 40 12/23/15 04:00 99.4 17 130/84 12/21/15 12:12 Ventilator 12/21/15 07:24 3 I/O 12/22/15 12/22/15 12/23/15 08:00 16:00 00:00 Intake Total 275 ml 720 ml 957 ml Output Total 350 ml 180 ml 150 ml Balance -75 ml 540 ml 807 ml Result Diagram: 12/23/15 0350 12/23/15 0350 Other Results Laboratory Tests Test 12/23/15 03:50 White Blood Count 9.9 TH/MM3 Red Blood Count 4.97 MIL/MM3 Hemoglobin 13.4 GM/DL Hematocrit 40.6 % Mean Corpuscular Volume 81.7 FL Mean Corpuscular Hemoglobin 26.9 PG Mean Corpuscular Hemoglobin 32.9 % Concent Red Cell Distribution Width 14.0 % Platelet Count 164 TH/MM3 Mean Platelet Volume 8.9 FL Neutrophils (%) (Auto) 75.5 % Lymphocytes (%) (Auto) 14.7 % Monocytes (%) (Auto) 8.1 % Eosinophils (%) (Auto) 1.5 % Basophils (%) (Auto) 0.2 % Neutrophils # (Auto) 7.5 TH/MM3 Lymphocytes # (Auto) 1.5 TH/MM3 Monocytes # (Auto) 0.8 TH/MM3 Eosinophils # (Auto) 0.2 TH/MM3 Basophils # (Auto) 0.0 TH/MM3 CBC Comment DIFF FINAL Differential Comment Prothrombin Time 24.2 SEC Prothromb Time International 2.2 RATIO Ratio Sodium Level 129 MEQ/L Potassium Level 3.6 MEQ/L Chloride Level 95 MEQ/L Carbon Dioxide Level 26.4 MEQ/L Anion Gap 8 MEQ/L Blood Urea Nitrogen 20 MG/DL Creatinine 0.84 MG/DL Estimat Glomerular Filtration 93 ML/MIN Rate Random Glucose 173 MG/DL Calcium Level 7.9 MG/DL Phosphorus Level 2.4 MG/DL Magnesium Level 2.0 MG/DL Imaging Last Impressions Neck Magnetic Resonance Angiography 12/22/15 5935 Signed Impressions: Service Date/Time: Tuesday, December 22, 2015 09:22 - CONCLUSION: Variant origin of the left vertebral artery from the aortic arch. No evidence of carotid stenosis. Glen Zamora MD Head Magnetic Resonance Angiography 12/22/15 1445 Signed Impressions: Service Date/Time: Tuesday, December 22, 2015 09:22 - CONCLUSION: 1. 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 2. Anterior circulation remains patent without aneurysmal disease. Bobby Gray MD Brain MRI 12/22/15 1339 Signed Impressions: Service Date/Time: Tuesday, December 22, 2015 14:37 - CONCLUSION: Worsening brain appearance with abnormal signal developing in large portions of the brainstem. Glen Zamora MD ADDENDUM: Upon further review of images there is signal identified within the basilar artery consistent with thrombosis. Jonel Jones Jr., MD Head/Brain Mag Res Venography 12/22/15 0000 Signed Impressions: Service Date/Time: Tuesday, December 22, 2015 09:22 - CONCLUSION: Normal MRV. Jonel Jones Jr., MD Head CT 12/21/15 0546 Signed Impressions: Service Date/Time: December 06:01 - CONCLUSION: 1. No focal or acute intracranial hemorrhage. 2. There is a new area of decreased density in the left occipital lobe suggestive of a recent nonhemorrhagic infarction. 3. The decreased density in the previously noted right occipital lobe has increased in size. Michael Hamilton MD Chest X-Ray 12/21/1529 Signed Impressions: Service Date/Time: December 05:52 - CONCLUSION: No acute intrathoracic disease. Michael Hamilton MD Objective Remarks GENERAL: Well-nourished, well-developed patient. SKIN: Warm and dry. HEAD: Normocephalic. EYES: No scleral icterus. No injection or drainage. NECK: Supple, trachea midline. No JVD or lymphadenopathy. Orally intubated CARDIOVASCULAR: Regular rate and rhythm without murmurs, gallops, or rubs. RESPIRATORY: Breath sounds equal bilaterally. No accessory muscle use. GASTROINTESTINAL: Abdomen soft, non-tender, nondistended. MUSCULOSKELETAL: No cyanosis, or edema. BACK: Nontender without obvious deformity. No CVA tenderness. Neuro: intubated, doesn't follow commands. A/P Assessment and Plan IMPRESSION Altered mental status. Vent dependent respiratory failure. Acute CVA Stage III a non-Hodgkin's lymphoma status post chemotherapy last year Status post brain biopsy on December 13. Atrial fibrillation. Diabetes mellitus Hypertension Hyponatremia Plan Neuro: Off sedation. Monitor neuro status closely. Neuro: Dr. De Leon, on Keppra 500 mg b.i.d. On Coumadin per neuro. EEG 12/20: Severe encephalopathy. 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 Anterior circulation remains patent without aneurysmal disease. Pulm: Continue with vent support and maintain sats >92%. Bronchodilators, ICU vent bundle. CPAP trials as karlie. Neuro status precluding extubation. CV: Monitor HR and BP keep MAP>65mmHg Echo from 12/07 showed an EF of 60% with no regional wall motion abnormalities. : Monitor renal function Is and Os and electrolyte replacement per protocol. On NS @83ml/hr. Check serum and urine Osm. Check TSH GI: On TF-Glucerna 1.5 with goal rate of 45 ml per hour. ID: Monitor CBC for signs of infections( fever and WBC). Will check BC x2 sets, CXR Place on empiric abx (Zosyn) for possible aspiration. Heme: Monitor CBC. Oncology-Dr. Whyte ,follow up on path results. s/p brain biopsy on December 13, by Dr. Marin. Endo: On SSI with Accu-Chek q. 6-hour for glycemic control. GI prophylaxis with Protonix 40 mg daily and DVT prophylaxis with SCDs Coumadin started by neuro INR 2.2 today, d/c Heparin SQ Discussed with patient's family and updated them on her condition CCT 35 mins Wil Langston MD Dec 23, 2015 08:34
[2015-12-23] MEDS: PANTOPRAZOLE SODIUM 40 MG VIAL IV SCH (09:00)
[2015-12-23] MEDS: levETIRAcetam 500 MG TAB PO SCH ×2 (09:00→21:39)
--- NOTE | 2015-12-23 09:25 | RADRPT ---
EXAM DATE/TIME: 12/23/2015 08:32 [facility] COMPARISON: CHEST SINGLE AP, December 21, 2015, 7:46. INDICATIONS : Evaluate for respiratory failure. MEDICAL HISTORY : Hypertension. Diabetes mellitus type 2 SURGICAL HISTORY : None. ENCOUNTER: Subsequent ACUITY: 3 days PAIN SCORE: Non-responsive. LOCATION: chest FINDINGS: A single view of the chest demonstrates left basilar opacity. Endotracheal tube and nasogastric tube are unchanged.. The cardiomediastinal contours are unremarkable. Osseous structures are intact. CONCLUSION: Left basilar opacity could be atelectasis or minimal infiltrate. Mikie Vargas MD on December 23, 2015 at 9:21 Board Certified Radiologist. This report was verified electronically.
--- NOTE | 2015-12-23 10:02 | PD.ONC.PN ---
Subjective Subjective Remarks Patient intubated. Family notices the patient's heart rate increase when they interact with them. They believe this is a sign patient is aware of his surroundings. He is off all sedation. per nurse, patient was withdrawing from pain in report, but not on exam this AM. Objective Data Date Time Temp Pulse Resp B/P Pulse Ox O2 Delivery O2 Flow Rate FiO2 12/23/15 08:47 99 40 12/23/15 06:00 96 12/23/15 04:02 99 40 12/23/15 04:00 99.4 96 17 130/84 99 12/23/15 04:00 96 12/23/15 04:00 40 12/23/15 02:00 95 12/23/15 00:50 100 40 12/23/15 00:00 97 12/23/15 00:00 100.1 107 19 138/83 99 12/23/15 00:00 40 12/22/15 22:00 97 12/22/15 21:50 99 40 12/22/15 20:30 100 40 12/22/15 20:00 40 12/22/15 20:00 99.3 103 18 126/79 100 12/22/15 20:00 104 12/22/15 18:00 102 12/22/15 16:00 40 12/22/15 16:00 99.8 98 20 147/85 100 12/22/15 16:00 98 12/22/15 15:18 99 40 12/22/15 14:15 100 100 12/22/15 14:00 99 12/22/15 12:00 99.7 102 21 142/90 100 12/22/15 12:00 102 12/22/15 11:38 100 40 12/22/15 10:03 100 100 12/22/15 10:03 40 12/22/15 10:00 97 12/23/15 12/23/15 12/23/15 06:59 14:59 22:59 Intake Total 909 ml Output Total 200 ml Balance 709 ml Result Diagram: 12/23/15 0350 12/23/15 0350 Laboratory Results Laboratory Tests Test 12/23/15 03:50 White Blood Count 9.9 TH/MM3 Red Blood Count 4.97 MIL/MM3 Hemoglobin 13.4 GM/DL Hematocrit 40.6 % Mean Corpuscular Volume 81.7 FL Mean Corpuscular Hemoglobin 26.9 PG Mean Corpuscular Hemoglobin 32.9 % Concent Red Cell Distribution Width 14.0 % Platelet Count 164 TH/MM3 Mean Platelet Volume 8.9 FL Neutrophils (%) (Auto) 75.5 % Lymphocytes (%) (Auto) 14.7 % Monocytes (%) (Auto) 8.1 % Eosinophils (%) (Auto) 1.5 % Basophils (%) (Auto) 0.2 % Neutrophils # (Auto) 7.5 TH/MM3 Lymphocytes # (Auto) 1.5 TH/MM3 Monocytes # (Auto) 0.8 TH/MM3 Eosinophils # (Auto) 0.2 TH/MM3 Basophils # (Auto) 0.0 TH/MM3 CBC Comment DIFF FINAL Differential Comment Prothrombin Time 24.2 SEC Prothromb Time International 2.2 RATIO Ratio Sodium Level 129 MEQ/L Potassium Level 3.6 MEQ/L Chloride Level 95 MEQ/L Carbon Dioxide Level 26.4 MEQ/L Anion Gap 8 MEQ/L Blood Urea Nitrogen 20 MG/DL Creatinine 0.84 MG/DL Estimat Glomerular Filtration 93 ML/MIN Rate Random Glucose 173 MG/DL Calcium Level 7.9 MG/DL Phosphorus Level 2.4 MG/DL Magnesium Level 2.0 MG/DL Imaging Studies Last 24 hours Impressions Chest X-Ray 12/23/15 0000 Signed Impressions: Service Date/Time: Wednesday, December 23, 2015 08:32 - CONCLUSION: Left basilar opacity could be atelectasis or minimal infiltrate. Mikie Vargas MD Neck Magnetic Resonance Angiography 12/22/15 1445 Signed Impressions: Service Date/Time: Tuesday, December 22, 2015 09:22 - CONCLUSION: Variant origin of the left vertebral artery from the aortic arch. No evidence of carotid stenosis. Glen Zamora MD Head Magnetic Resonance Angiography 12/22/15 1445 Signed Impressions: Service Date/Time: Tuesday, December 22, 2015 09:22 - CONCLUSION: 1. 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 2. Anterior circulation remains patent without aneurysmal disease. Bobby Gray MD Brain MRI 12/22/15 2974 Signed Impressions: Service Date/Time: Tuesday, December 22, 2015 14:37 - CONCLUSION: Worsening brain appearance with abnormal signal developing in large portions of the brainstem. Glen Zamora MD ADDENDUM: Upon further review of images there is signal identified within the basilar artery consistent with thrombosis. Jonel Jones Jr., MD Administered Medications Medications (Trade) Dose Ordered Sig/Junior Route PRN Reason Start Time Stop Time Status Last Admin Dose Admin Propofol (Diprivan 1000 Mg/100ml Inj) search Sets for Drip. NOW PRN IV SEDATION 12/21/15 08:30 12/22/15 06:25 Pantoprazole Sodium (Protonix Inj) 40 mg DAILY IV 12/21/15 13:00 12/23/15 09:00 Miscellaneous Information 1 [id number] XX 12/21/15 13:00 12/21/15 13:00 Chlorhexidine Gluconate (Chlorhexidine 2% Cloth) 3 pack Taper DAILY@04 TOP 12/22/15 04:00 12/17/16 03:59 12/23/15 04:00 Insulin Human Regular (NovoLIN R SUPPLEMENTAL SCALE) 1 Q6H SQ 12/21/15 13:00 12/23/15 06:25 Levetriacetam (Keppra) 500 mg Q12HR PO 12/21/15 13:45 12/23/15 09:00 Chlorhexidine Gluconate 15 ml 15 ml BID@08,20 MT 12/22/15 20:00 12/23/15 08:00 Sodium Chloride (NS 1000 ml Inj) 1,000 ml @ 83 mls/hr Q12H3M IV 12/22/15 18:44 12/23/15 06:26 Objective Remarks GENERAL: Middle aged male, intubated, off sedation. SKIN: Warm and dry. HEAD: Normocephalic. EYES: No injection or drainage. NECK: Supple, trachea midline. CARDIOVASCULAR: Regular rate and rhythm RESPIRATORY: Breath sounds equal bilaterally. No accessory muscle use. on mechanical ventilation. GASTROINTESTINAL: Abdomen soft, non-tender, nondistended. EXTREMITIES: No cyanosis MUSCULOSKELETAL: Adequate muscle tone. NEUROLOGICAL: does not open eyes. does not follow commands, does not withdraw from pain. Assessment/Plan Problem List: (1) CVA (cerebral vascular accident) Status: Acute Plan: --neurology following --on coumadin, INR therapeutic --MRI/MRA brain, 12/21: showed complete occlusion basilar system and both posterior cerebral arteries (2) Non-Hodgkin lymphoma Status: Chronic Plan: --Brain mass status post biopsy on last admission, the pathology report is still pending. --pathology has been sent to [facility] for second opinion. --status post six cycles of Rituxan and CHOP chemotherapy completed last May. --no evidence of residual or recurrent disease on the October or November CT C/A/P Assessment 60y/o with h/o Non-Hodgkin's lymphoma. Admitted for acute CVA. Atrial fibrillation. Attending Statement sedated on vent. INR therapeutic on coumadin. d/w pt daughter path is pending. Magaly Cortez Dec 23, 2015 10:02 Ed Whyte MD Dec 23, 2015 16:59
[2015-12-23] MEDS: PIPERACIL-TAZO 3.375 GM PREMIX 50 ML IV SCH ×3 (10:57→21:39)
[2015-12-23] MEDS: ACETAMINOPHEN 325 MG TAB PO PRN (13:06)
[2015-12-23] MEDS: WARFARIN SOD 5 MG TAB PO SCH ×2 (16:00→16:49)
--- NOTE | 2015-12-23 20:10 | HHI.PR ---
Review/Management Diagnosis basilar artery thrombosis with pontine cva, cerebellar cva, occipital cva Plan continue coumadin. INR in therapeutic range today at 2.2 and sub Q heparin stopped since coumadin now therapeutic. Diagnosis/Plan: Subjective Subjective Comments No acute events reported Active Medications Current Medications Medications (Trade) Dose Ordered Sig/Junior Route Start Time Stop Time Status Last Admin (NS Flush) 2 ml UNSCH PRN IVF 12/21/15 06:00 (Diprivan 1000 Mg/100ml Inj) search Sets for Drip. NOW PRN IV 12/21/15 08:30 12/22/15 06:25 (Protonix Inj) 40 mg DAILY IV 12/21/15 13:00 12/23/15 09:00 Miscellaneous Information 1 Q361D XX 12/21/15 13:00 12/21/15 13:00 (Chlorhexidine 2% Cloth) 3 pack Taper DAILY@04 TOP 12/22/15 04:00 12/17/16 03:59 12/23/15 04:00 (Chlorhexidine 2% Cloth) 3 pack UNSCH PRN TOP 12/21/15 13:00 (D50w (Vial) Inj) 25 ml UNSCH PRN IV PUSH 12/21/15 13:00 (Glucagon Inj) 1 mg UNSCH PRN OTHER 12/21/15 13:00 (NovoLIN R SUPPLEMENTAL SCALE) 1 Q6H SQ 12/21/15 13:00 12/23/15 13:06 (Keppra) 500 mg Q12HR PO 12/21/15 13:45 12/23/15 09:00 (Coumadin) 5 mg DAILY@16 PO 12/22/15 16:00 12/23/15 16:00 Chlorhexidine Gluconate 15 ml 15 ml BID@08,20 MT 12/22/15 20:00 12/23/15 08:00 Sodium Chloride 1,000 ml @ 83 mls/hr Q12H3M IV 12/22/15 18:44 12/23/15 18:50 (Coumadin Consult Pharmacy) 0 ml @ 0 mls/hr UNSCH OTHER 12/22/15 19:45 Acetaminophen 650 mg 650 mg Q6H PRN PO 12/23/15 02:45 12/23/15 13:06 Potassium Chloride 100 ml @ 50 mls/hr Q2H PRN IV 12/23/15 08:30 (KCl 20 Meq Premix Inj) 100 ml @ 50 mls/hr Q2H PRN IV 12/23/15 08:30 Potassium Chloride 40 meq 40 meq UNSCH PRN PO/TUBE 12/23/15 08:30 Potassium Chloride 100 ml @ 25 mls/hr UNSCH PRN IV 12/23/15 08:30 Potassium Chloride 100 ml @ 50 mls/hr Q2H PRN IV 12/23/15 08:30 (Magnesium Sulfate Inj/NS Inj) 100 ml @ 50 mls/hr UNSCH PRN IV 12/23/15 08:30 Magnesium Oxide 800 mg 800 mg UNSCH PRN PO 12/23/15 08:30 (Magnesium Sulfate Inj/NS Inj) 100 ml @ 50 mls/hr UNSCH PRN IV 12/23/15 08:30 Potassium Phosphate 2000 mg 2,000 mg Q4H PRN PO 12/23/15 08:30 (Sodium Phosphate Inj/NS 250 ml Inj) 250 ml @ 42 mls/hr UNSCH PRN IV 12/23/15 08:30 (KCl 40 Meq/30 ml Liq) 40 meq UNSCH PRN PO/TUBE 12/23/15 08:30 Potassium Phosphate 2000 mg 2,000 mg UNSCH PRN PO/TUBE 12/23/15 08:30 Potassium Phosphate 30 mmol/ Sodium Chloride 260 ml @ 42 mls/hr UNSCH PRN IV 12/23/15 08:30 (Zosyn 3.375 Gm Premix) 50 ml @ 100 mls/hr Q6H IV 12/23/15 10:00 12/23/15 16:49 Allergies Allergies Coded Allergies No Known Allergies (Verified12/21/15) Exam I&O / VS 12/22/15 12/22/15 12/23/15 15:00 23:00 07:00 Intake Total 720 ml 957 ml 909 ml Output Total 180 ml 150 ml 200 ml Balance 540 ml 807 ml 709 ml Intake IV Total 522 ml 632 ml 597 ml Tube Feeding 118 ml 225 ml 212 ml Other 80 ml 100 ml 100 ml Output Urine Total 180 ml 150 ml 200 ml # Bowel Movements 0 Vital Signs Date Time Temp Pulse Resp B/P Pulse Ox O2 Delivery O2 Flow Rate FiO2 12/23/15 18:00 103 12/23/15 16:00 40 12/23/15 16:00 97 12/23/15 16:00 99.0 91 18 127/74 98 12/23/15 15:43 100 40 12/23/15 14:00 98 12/23/15 13:12 96 40 12/23/15 12:00 40 12/23/15 12:00 98 12/23/15 12:00 100.7 106 18 128/81 99 12/23/15 10:44 99 40 12/23/15 10:00 100 12/23/15 08:47 99 40 12/23/15 08:00 99.0 100 18 132/77 12/23/15 08:00 100 12/23/15 08:00 40 12/23/15 06:00 96 12/23/15 04:02 99 40 12/23/15 04:00 99.4 96 17 130/84 99 12/23/15 04:00 96 12/23/15 04:00 40 12/23/15 02:00 95 12/23/15 00:50 100 40 12/23/15 00:00 97 12/23/15 00:00 100.1 107 19 138/83 99 12/23/15 00:00 40 12/22/15 22:00 97 12/22/15 21:50 99 40 12/22/15 20:30 100 40 Exam Comments pupils min responsive. no EOM to dolls maneuver generalized weak BUE and BLE Objective Micro and Labs Laboratory Tests Test 12/23/15 12/23/15 12/23/15 03:50 09:15 10:10 White Blood Count 9.9 Red Blood Count 4.97 Hemoglobin 13.4 Hematocrit 40.6 Mean Corpuscular Volume 81.7 Mean Corpuscular Hemoglobin 26.9 Mean Corpuscular Hemoglobin 32.9 Concent Red Cell Distribution Width 14.0 Platelet Count 164 Mean Platelet Volume 8.9 Neutrophils (%) (Auto) 75.5 Lymphocytes (%) (Auto) 14.7 Monocytes (%) (Auto) 8.1 Eosinophils (%) (Auto) 1.5 Basophils (%) (Auto) 0.2 Neutrophils # (Auto) 7.5 Lymphocytes # (Auto) 1.5 Monocytes # (Auto) 0.8 Eosinophils # (Auto) 0.2 Basophils # (Auto) 0.0 CBC Comment DIFF FINAL Differential Comment Prothrombin Time 24.2 Prothromb Time International 2.2 Ratio Sodium Level 129 Potassium Level 3.6 Chloride Level 95 Carbon Dioxide Level 26.4 Anion Gap 8 Blood Urea Nitrogen 20 Creatinine 0.84 Estimat Glomerular Filtration 93 Rate Random Glucose 173 Calcium Level 7.9 Phosphorus Level 2.4 2.1 Magnesium Level 2.0 Urine Osmolality 697 Serum Osmolality 283 Thyroid Stimulating Hormone 1.020 3rd Gen Date/Time Procedure Status Source Growth 12/23/15 10:29 Aerobic Blood Culture Received Blood Peripheral Pending 12/23/15 10:29 Anaerobic Blood Culture Received Blood Peripheral Pending Jose A Rosales PhD Dec 23, 2015 20:10
[2015-12-24] VITALS (19 sets, daily range): BP systolic 117–143; BP diastolic 58–77; PULSE 80–95; RESP 14–18; TEMP 98.9–101.3; O2SAT 96–100
[2015-12-24] MEDS: INSULIN NovoLIN REGULAR SUPPLEMENTAL SCALE SQ SCH ×4 (00:24→20:01)
[2015-12-24] MEDS: CHLORHEXIDINE GLUCONATE 2 % 1 PACK (2 CLOTHS) TOP SCH (04:00)
[2015-12-24] MEDS: PIPERACIL-TAZO 3.375 GM PREMIX 50 ML IV SCH ×4 (04:00→22:20)
[2015-12-24] MEDS: RESP: ALBUTEROL 2.5 MG/IPRATROPIUM 0.5 MG NEB (SCH) INH ×4 (04:24→19:53)
[2015-12-24] MEDS: SODIUM CHLOR 0.9% 1000 ML INJ 1,000 ML IV SCH ×2 (06:53→20:02)
[2015-12-24 07:07] LABS: AUTOMATED NEUTROPHIL # 6.6 TH/MM3 (1.8-7.7); BASOPHIL # 0.1 TH/MM3 (0-0.2); BASOPHIL % 0.6 % (0.0-2.0); EOSINOPHIL # 0.2 TH/MM3 (0-0.4); EOSINOPHIL % 2.3 % (0.0-4.0); HEMATOCRIT 38.5 % (39.0-51.0); LYMPHOCYTE # 1.1 TH/MM3 (1.0-4.8); MEAN CELL VOLUME 82.6 FL (80.0-100.0); MEAN CORPUSCULAR HEMOGLOBIN 26.8 PG (27.0-34.0); MEAN CORPUSCULAR HGB CONC 32.4 % (32.0-36.0); MONO % 8.3 % (0.0-8.0); NEUT % 75.8 % (16.0-70.0); PLATELET COUNT 163 TH/MM3 (150-450); RED BLOOD COUNT 4.66 MIL/MM3 (4.50-5.90); RED CELL DISTRIBUTION WIDTH 14.4 % (11.6-17.2); WHITE BLOOD COUNT 8.7 TH/MM3 (4.0-11.0)
[2015-12-24 07:18] LABS: BICARBONATE 26.5 MEQ/L (21.0-32.0); MAGNESIUM 2.2 MG/DL (1.5-2.5); POTASSIUM 4.1 MEQ/L (3.5-5.1)
[2015-12-24 07:27] LABS: HEMO FLAGS AUTO DIFF
[2015-12-24 08:01] LABS: INTERNATIONAL NORMALIZED RATIO 3.6 RATIO; PROTHROMBIN TIME - PATIENT 40.8 SEC (9.8-11.4)
--- NOTE | 2015-12-24 08:39 | HHI.CCPN ---
Subjective Remarks/Hospital Course The patient is a 59-year-old male with past medical history of paroxysmal atrial fibrillation, hypertension, stage III a non-Hodgkin's lymphoma status post a chemotherapy last year. He received Rituxan CHOP. He presented to [facility] emergency department with altered mental status. Most of the history was obtained from reviewing medical records as the patient is poor historian. When he woke up of 4 o'clock this morning the patient had some right facial droop associated with headaches. Due to altered mental status CT scan of the brain was obtained which showed no focal or acute intracranial hemorrhage. However, there is an new area of decreased density in the left occipital lobe, suggestive of recent non hemorrhagic infarction and the decreased density in the previously noted right occipital lobe has increased in size. The patient was recently admitted back on December 06 with similar presentation and he had a right occipital juan jose hole brain biopsy by Dr. Marin on December 13. The pathology results pending. The patient became the patient noted to have very sonorous respirations and can and follow any commands in addition he was obtunded. He was subsequently intubated by the emergency department physician and MRI of the brain was obtained which showed a new area of restricted diffusion within the left occipital lobe suggesting acute infarction. No evidence of any acute hemorrhage, midline shift or a fluid collection. When seen the patient is sedated with Diprivan and on full mechanical ventilation. ABG post intubation showed a pH of 7.41, CO2 35, pAO2 100, bicarb of 22, saturation 93% on assist control ventilation rate of 14, tidal volume 550, PEEP five, FIO2 of 40%. Chest x-ray Post intubation showed ET tube above the geno in no acute cardiopulmonary process. His last echocardiogram was obtained in January of last year which showed an EF of 60% with no regional wall motion abnormalities. EKG on arrival showed A fib with RVR at rate of 114 beats per minute. The patient was given Cardizem 20 mg IV push in the emergency department and was initially placed on Cardizem drip. However, now is off. 12/21 No events overnight. Sedated with Diprivan and intubated. Afebrile. For MRA brain , carotids and MRV brain today . 12/22 Patient remains intubated, off sedation. T: 100.1 at midnight. 12/23 No events overnight. Remains off sedation. Had T: 101.3 at 4am. Withdraws to pain. Objective - Vital Signs Date Time Temp Pulse Resp B/P Pulse Ox O2 Delivery O2 Flow Rate FiO2 12/24/15 08:26 100 40 12/24/15 06:00 100.0 12/24/15 06:00 91 12/24/15 04:00 18 117/73 12/21/15 12:12 Ventilator 12/21/15 07:24 3 I/O 12/23/15 12/23/15 12/24/15 08:00 16:00 00:00 Intake Total 909 ml 1462 ml 906 ml Output Total 200 ml 800 ml 800 ml Balance 709 ml 662 ml 106 ml Result Diagram: 12/24/15 0339 12/24/15 0339 Other Results Laboratory Tests Test 12/23/15 12/23/15 12/24/15 09:15 10:10 03:39 Urine Osmolality 697 MOSM/KG Serum Osmolality 283 MOSM/KG Phosphorus Level 2.1 MG/DL 2.3 MG/DL Thyroid Stimulating Hormone 1.020 uIU/ML 3rd Gen White Blood Count 8.7 TH/MM3 Red Blood Count 4.66 MIL/MM3 Hemoglobin 12.5 GM/DL Hematocrit 38.5 % Mean Corpuscular Volume 82.6 FL Mean Corpuscular Hemoglobin 26.8 PG Mean Corpuscular Hemoglobin 32.4 % Concent Red Cell Distribution Width 14.4 % Platelet Count 163 TH/MM3 Mean Platelet Volume 8.8 FL Neutrophils (%) (Auto) 75.8 % Lymphocytes (%) (Auto) 13.0 % Monocytes (%) (Auto) 8.3 % Eosinophils (%) (Auto) 2.3 % Basophils (%) (Auto) 0.6 % Neutrophils # (Auto) 6.6 TH/MM3 Lymphocytes # (Auto) 1.1 TH/MM3 Monocytes # (Auto) 0.7 TH/MM3 Eosinophils # (Auto) 0.2 TH/MM3 Basophils # (Auto) 0.1 TH/MM3 CBC Comment AUTO DIFF Prothrombin Time 40.8 SEC Prothromb Time International 3.6 RATIO Ratio Sodium Level 132 MEQ/L Potassium Level 4.1 MEQ/L Chloride Level 96 MEQ/L Carbon Dioxide Level 26.5 MEQ/L Anion Gap 10 MEQ/L Blood Urea Nitrogen 16 MG/DL Creatinine 0.77 MG/DL Estimat Glomerular Filtration 103 ML/MIN Rate Random Glucose 176 MG/DL Calcium Level 8.1 MG/DL Magnesium Level 2.2 MG/DL Imaging Last Impressions Chest X-Ray 12/23/15 0000 Signed Impressions: Service Date/Time: Wednesday, December 23, 2015 08:32 - CONCLUSION: Left basilar opacity could be atelectasis or minimal infiltrate. Mikie Vargas MD Neck Magnetic Resonance Angiography 12/22/15 1445 Signed Impressions: Service Date/Time: Tuesday, December 22, 2015 09:22 - CONCLUSION: Variant origin of the left vertebral artery from the aortic arch. No evidence of carotid stenosis. Glen Zamora MD Head Magnetic Resonance Angiography 12/22/15 1445 Signed Impressions: Service Date/Time: Tuesday, December 22, 2015 09:22 - CONCLUSION: 1. 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 2. Anterior circulation remains patent without aneurysmal disease. Bobby Gray MD Brain MRI 12/22/15 1339 Signed Impressions: Service Date/Time: Tuesday, December 22, 2015 14:37 - CONCLUSION: Worsening brain appearance with abnormal signal developing in large portions of the brainstem. Glen Zamora MD ADDENDUM: Upon further review of images there is signal identified within the basilar artery consistent with thrombosis. Jonel Jones Jr., MD Head/Brain Mag Res Venography 12/22/15 0000 Signed Impressions: Service Date/Time: Tuesday, December 22, 2015 09:22 - CONCLUSION: Normal MRV. Jonel Jones Jr., MD Head CT 12/21/15 0546 Signed Impressions: Service Date/Time: December 06:01 - CONCLUSION: 1. No focal or acute intracranial hemorrhage. 2. There is a new area of decreased density in the left occipital lobe suggestive of a recent nonhemorrhagic infarction. 3. The decreased density in the previously noted right occipital lobe has increased in size. Michael Hamilton MD Objective Remarks GENERAL: Well-nourished, well-developed patient. SKIN: Warm and dry. HEAD: Normocephalic. EYES: No scleral icterus. No injection or drainage. NECK: Supple, trachea midline. No JVD or lymphadenopathy. Orally intubated CARDIOVASCULAR: Regular rate and rhythm without murmurs, gallops, or rubs. RESPIRATORY: Breath sounds equal bilaterally. No accessory muscle use. GASTROINTESTINAL: Abdomen soft, non-tender, nondistended. MUSCULOSKELETAL: No cyanosis, or edema. BACK: Nontender without obvious deformity. No CVA tenderness. Neuro: intubated, doesn't follow commands. A/P Assessment and Plan IMPRESSION Altered mental status. Vent dependent respiratory failure. Basilar artery thrombosis with pontine, cerebellar, occipital CVA Stage III a non-Hodgkin's lymphoma status post chemotherapy last year Status post brain biopsy on December 13. Atrial fibrillation. Diabetes mellitus Hypertension Hyponatremia Plan Neuro: Off sedation. Monitor neuro status closely. Neuro: Dr. De Leon, on Keppra 500 mg b.i.d. On Coumadin per neuro. EEG 12/20: Severe encephalopathy. 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 Anterior circulation remains patent without aneurysmal disease. Pulm: Continue with vent support and maintain sats >92%. Bronchodilators, ICU vent bundle. CPAP trials as karlie. Neuro status precluding extubation. CV: Monitor HR and BP keep MAP>65mmHg Echo from 12/07 showed an EF of 60% with no regional wall motion abnormalities. : Monitor renal function Is and Os and electrolyte replacement per protocol. Decrease NS 50 ml/hr. GI: On TF-Glucerna 1.5 with goal rate of 45 ml per hour. ID: Continue with abx (Zosyn, add Vanco) follow up on BC, check sputum cx Heme: Monitor CBC. Oncology-Dr. Whyte ,follow up on path results. s/p brain biopsy on December 13, by Dr. Marin. Endo: On SSI with Accu-Chek q. 6-hour for glycemic control. TSH: 1.02 GI prophylaxis with Protonix 40 mg daily and DVT prophylaxis with SCDs Coumadin started by neuro INR 3.6 today Discussed with patient's family and updated them on her condition CCT 35 mins Wil Langston MD Dec 24, 2015 08:39
[2015-12-24] MEDS: PANTOPRAZOLE SODIUM 40 MG VIAL IV SCH (08:40)
[2015-12-24] MEDS: CHLORHEXIDINE 0.12% (ORAL KIT) 15 ML CUP MT SCH ×2 (08:40→20:08)
[2015-12-24] MEDS: levETIRAcetam 500 MG TAB PO SCH ×2 (08:41→20:58)
[2015-12-24] MEDS: SODIUM CHLORIDE 0.9% FLUSH 5 ML FLUSH IVF PRN (08:41)
--- NOTE | 2015-12-24 09:49 | PD.ONC.PN ---
Subjective Subjective Remarks Tmax 101.3 this AM. On cpap trials. Off sedation. Per family, has been withdrawing from pain in all extremities. Objective Data Date Time Temp Pulse Resp B/P Pulse Ox O2 Delivery O2 Flow Rate FiO2 12/24/15 08:26 100 40 12/24/15 08:26 40 12/24/15 06:00 100.0 12/24/15 06:00 91 12/24/15 04:24 96 40 12/24/15 04:00 40 12/24/15 04:00 93 12/24/15 04:00 101.3 91 18 117/73 100 12/24/15 02:00 93 12/24/15 00:25 100 40 12/24/15 00:00 40 12/24/15 00:00 99.9 95 18 143/75 100 12/24/15 00:00 95 12/23/15 22:06 100 40 12/23/15 22:00 88 12/23/15 20:00 40 12/23/15 20:00 100.3 98 18 131/75 98 12/23/15 20:00 89 12/23/15 18:00 103 12/23/15 16:00 40 12/23/15 16:00 97 12/23/15 16:00 99.0 91 18 127/74 98 12/23/15 15:43 100 40 12/23/15 14:00 98 12/23/15 13:12 96 40 12/23/15 12:00 40 12/23/15 12:00 98 12/23/15 12:00 100.7 106 18 128/81 99 12/23/15 10:44 99 40 12/23/15 10:00 100 Result Diagram: 12/24/15 0339 12/24/15 0339 Laboratory Results Laboratory Tests Test 12/23/15 12/24/15 10:10 03:39 Serum Osmolality 283 MOSM/KG Phosphorus Level 2.1 MG/DL 2.3 MG/DL Thyroid Stimulating Hormone 1.020 uIU/ML 3rd Gen White Blood Count 8.7 TH/MM3 Red Blood Count 4.66 MIL/MM3 Hemoglobin 12.5 GM/DL Hematocrit 38.5 % Mean Corpuscular Volume 82.6 FL Mean Corpuscular Hemoglobin 26.8 PG Mean Corpuscular Hemoglobin 32.4 % Concent Red Cell Distribution Width 14.4 % Platelet Count 163 TH/MM3 Mean Platelet Volume 8.8 FL Neutrophils (%) (Auto) 75.8 % Lymphocytes (%) (Auto) 13.0 % Monocytes (%) (Auto) 8.3 % Eosinophils (%) (Auto) 2.3 % Basophils (%) (Auto) 0.6 % Neutrophils # (Auto) 6.6 TH/MM3 Lymphocytes # (Auto) 1.1 TH/MM3 Monocytes # (Auto) 0.7 TH/MM3 Eosinophils # (Auto) 0.2 TH/MM3 Basophils # (Auto) 0.1 TH/MM3 CBC Comment AUTO DIFF Prothrombin Time 40.8 SEC Prothromb Time International 3.6 RATIO Ratio Sodium Level 132 MEQ/L Potassium Level 4.1 MEQ/L Chloride Level 96 MEQ/L Carbon Dioxide Level 26.5 MEQ/L Anion Gap 10 MEQ/L Blood Urea Nitrogen 16 MG/DL Creatinine 0.77 MG/DL Estimat Glomerular Filtration 103 ML/MIN Rate Random Glucose 176 MG/DL Calcium Level 8.1 MG/DL Magnesium Level 2.2 MG/DL Culture Results Microbiology Date/Time Procedure Status Source Growth 12/23/15 10:10 Aerobic Blood Culture Received Blood Peripheral Pending 12/23/15 10:10 Anaerobic Blood Culture Received Blood Peripheral Pending 12/23/15 10:29 Aerobic Blood Culture Received Blood Peripheral Pending 12/23/15 10:29 Anaerobic Blood Culture Received Blood Peripheral Pending Administered Medications Medications (Trade) Dose Ordered Sig/Junior Route PRN Reason Start Time Stop Time Status Last Admin Dose Admin IV Flush (NS Flush) 2 ml UNSCH PRN IVF FLUSH AFTER USING IV ACCESS 12/21/15 06:00 12/24/15 08:41 Propofol (Diprivan 1000 Mg/100ml Inj) search Sets for Drip. NOW PRN IV SEDATION 12/21/15 08:30 12/22/15 06:25 Pantoprazole Sodium (Protonix Inj) 40 mg DAILY IV 12/21/15 13:00 12/24/15 08:40 Miscellaneous Information 1 Q361D XX 12/21/15 13:00 12/21/15 13:00 Chlorhexidine Gluconate (Chlorhexidine 2% Cloth) 3 pack Taper DAILY@04 TOP 12/22/15 04:00 12/17/16 03:59 12/24/15 04:00 Insulin Human Regular (NovoLIN R SUPPLEMENTAL SCALE) 1 Q6H SQ 12/21/15 13:00 12/24/15 06:19 Levetriacetam (Keppra) 500 mg Q12HR PO 12/21/15 13:45 12/24/15 08:41 Warfarin Sodium (Coumadin) 5 mg DAILY@16 PO 12/22/15 16:00 Hold 12/23/15 16:00 Chlorhexidine Gluconate 15 ml 15 ml BID@08,20 MT 12/22/15 20:00 12/24/15 08:40 Sodium Chloride (NS 1000 ml Inj) 1,000 ml @ 50 mls/hr Q20H IV 12/22/15 18:44 12/24/15 06:53 Acetaminophen 650 mg 650 mg Q6H PRN PO TEMP > 100 12/23/15 02:45 12/23/15 13:06 Piperacillin Sod/ Tazobactam Sod (Zosyn 3.375 Gm Premix) 50 ml @ 100 mls/hr Q6H IV 12/23/15 10:00 12/24/15 04:00 Objective Remarks GENERAL: Middle aged male, intubated, off sedation. SKIN: Warm and dry. HEAD: Normocephalic. EYES: No injection or drainage. NECK: Supple, trachea midline. CARDIOVASCULAR: Regular rate and rhythm RESPIRATORY: Breath sounds equal bilaterally. No accessory muscle use. on mechanical ventilation. GASTROINTESTINAL: Abdomen soft, non-tender, nondistended. EXTREMITIES: No cyanosis MUSCULOSKELETAL: Adequate muscle tone. NEUROLOGICAL: does not open eyes. +withdraws from pain in all extremities. when eyelids are forced open, patient follows command to move eyes to the left. no other commands followed. +gag reflex Assessment/Plan Problem List: (1) CVA (cerebral vascular accident) Status: Acute Plan: --neurology following --INR supratherapeutic, will hold coumadin today --MRI/MRA brain, 12/21: showed complete occlusion basilar system and both posterior cerebral arteries (2) Non-Hodgkin lymphoma Status: Chronic Plan: --Brain mass status post biopsy on last admission, the pathology report is still pending. --pathology has been sent to [facility] for second opinion. --status post six cycles of Rituxan and CHOP chemotherapy completed last May. --no evidence of residual or recurrent disease on the October or November CT C/A/P Assessment 60y/o with h/o Non-Hodgkin's lymphoma. Admitted for acute CVA. Atrial fibrillation. Attending Statement on CPAP trial start responding to some commands Hold coumadin for INR 3.6 d/w and family. The exam, history, and the medical decision-making described in the above note were completed with the assistance of the mid-level provider. I reviewed and agree with the findings presented. I attest that I had a [id number] encounter with the patient on the same day, and personally performed and documented my assessment and findings in the medical record. Magaly Cortez Dec 24, 2015 09:49 Ed Whyte MD Dec 24, 2015 18:11
[2015-12-24 10:15] LABS: SCAN/DIFF AUTO DIFF CONFIRMED
[2015-12-24] MEDS: VANCOMYCIN INJ 1,000 MG in SODIUM CHLOR 0.9% 250 ML INJ 250 ML IV SCH ×2 (10:21→20:59)
--- NOTE | 2015-12-24 16:42 | HHI.PR ---
Review/Management Diagnosis basilar artery thrombosis with pontine cva, cerebellar cva, occipital cva Plan coumadin on hold due to INR 3.6 recheck INR in AM Diagnosis/Plan: Subjective Subjective Comments No acute events reported Active Medications Current Medications Medications (Trade) Dose Ordered Sig/Junior Route Start Time Stop Time Status Last Admin (NS Flush) 2 ml UNSCH PRN IVF 12/21/15 06:00 12/24/15 08:41 (Diprivan 1000 Mg/100ml Inj) search Sets for Drip. NOW PRN IV 12/21/15 08:30 12/22/15 06:25 (Protonix Inj) 40 mg DAILY IV 12/21/15 13:00 12/24/15 08:40 Miscellaneous Information 1 Q361D XX 12/21/15 13:00 12/21/15 13:00 (Chlorhexidine 2% Cloth) 3 pack Taper DAILY@04 TOP 12/22/15 04:00 12/17/16 03:59 12/24/15 04:00 (Chlorhexidine 2% Cloth) 3 pack UNSCH PRN TOP 12/21/15 13:00 (D50w (Vial) Inj) 25 ml UNSCH PRN IV PUSH 12/21/15 13:00 (Glucagon Inj) 1 mg UNSCH PRN OTHER 12/21/15 13:00 (NovoLIN R SUPPLEMENTAL SCALE) 1 Q6H SQ 12/21/15 13:00 12/24/15 13:00 (Keppra) 500 mg Q12HR PO 12/21/15 13:45 12/24/15 08:41 (Coumadin) 5 mg DAILY@16 PO 12/22/15 16:00 Hold 12/23/15 16:00 Chlorhexidine Gluconate 15 ml 15 ml BID@08,20 MT 12/22/15 20:00 12/24/15 08:40 Sodium Chloride 1,000 ml @ 50 mls/hr Q20H IV 12/22/15 18:44 12/24/15 06:53 (Coumadin Consult Pharmacy) 0 ml @ 0 mls/hr UNSCH OTHER 12/22/15 19:45 Acetaminophen 650 mg 650 mg Q6H PRN PO 12/23/15 02:45 12/23/15 13:06 Potassium Chloride 100 ml @ 50 mls/hr Q2H PRN IV 12/23/15 08:30 (KCl 20 Meq Premix Inj) 100 ml @ 50 mls/hr Q2H PRN IV 12/23/15 08:30 Potassium Chloride 40 meq 40 meq UNSCH PRN PO/TUBE 12/23/15 08:30 Potassium Chloride 100 ml @ 25 mls/hr UNSCH PRN IV 12/23/15 08:30 Potassium Chloride 100 ml @ 50 mls/hr Q2H PRN IV 12/23/15 08:30 (Magnesium Sulfate Inj/NS Inj) 100 ml @ 50 mls/hr UNSCH PRN IV 12/23/15 08:30 Magnesium Oxide 800 mg 800 mg UNSCH PRN PO 12/23/15 08:30 (Magnesium Sulfate Inj/NS Inj) 100 ml @ 50 mls/hr UNSCH PRN IV 12/23/15 08:30 Potassium Phosphate 2000 mg 2,000 mg Q4H PRN PO 12/23/15 08:30 (Sodium Phosphate Inj/NS 250 ml Inj) 250 ml @ 42 mls/hr UNSCH PRN IV 12/23/15 08:30 (KCl 40 Meq/30 ml Liq) 40 meq UNSCH PRN PO/TUBE 12/23/15 08:30 Potassium Phosphate 2000 mg 2,000 mg UNSCH PRN PO/TUBE 12/23/15 08:30 Potassium Phosphate 30 mmol/ Sodium Chloride 260 ml @ 42 mls/hr UNSCH PRN IV 12/23/15 08:30 Piperacillin Sod/ Tazobactam Sod 50 ml @ 100 mls/hr Q6H IV 12/23/15 10:00 12/24/15 10:22 (Vancomycin Inj/ NS 250 ml Inj) 250 ml @ 250 mls/hr Q12H IV 12/24/15 08:45 12/24/15 10:21 Allergies Allergies Coded Allergies No Known Allergies (Verified12/21/15) Exam I&O / VS 12/23/15 12/23/15 12/24/15 14:59 22:59 06:59 Intake Total 1462 ml 906 ml 980 ml Output Total 800 ml 800 ml 550 ml Balance 662 ml 106 ml 430 ml Intake Oral 0 ml 0 ml IV Total 819 ml 563 ml 602 ml Tube Feeding 543 ml 283 ml 318 ml Other 100 ml 60 ml 60 ml Output Urine Total 700 ml 800 ml 550 ml Stool Total 100 ml # Bowel Movements 0 0 Vital Signs Date Time Temp Pulse Resp B/P Pulse Ox O2 Delivery O2 Flow Rate FiO2 12/24/15 15:07 100 40 12/24/15 14:00 81 12/24/15 12:00 99.3 81 18 118/58 99 12/24/15 12:00 81 12/24/15 12:00 40 12/24/15 11:56 100 40 12/24/15 10:00 81 12/24/15 08:26 100 40 12/24/15 08:26 40 12/24/15 08:00 40 12/24/15 08:00 99.3 81 18 118/58 99 12/24/15 08:00 91 12/24/15 06:00 100.0 12/24/15 06:00 91 12/24/15 04:24 96 40 12/24/15 04:00 40 12/24/15 04:00 93 12/24/15 04:00 101.3 91 18 117/73 100 12/24/15 02:00 93 12/24/15 00:25 100 40 12/24/15 00:00 40 12/24/15 00:00 99.9 95 18 143/75 100 12/24/15 00:00 95 12/23/15 22:06 100 40 12/23/15 22:00 88 12/23/15 20:00 40 12/23/15 20:00 100.3 98 18 131/75 98 12/23/15 20:00 89 12/23/15 18:00 103 Exam Comments nonresponsive pupils 1-2 mm bilaterally react to light NO eom to dolls 0/5 movement BUE and BLE, no withdrawal Objective Micro and Labs Laboratory Tests Test 12/24/15 03:39 White Blood Count 8.7 Red Blood Count 4.66 Hemoglobin 12.5 Hematocrit 38.5 Mean Corpuscular Volume 82.6 Mean Corpuscular Hemoglobin 26.8 Mean Corpuscular Hemoglobin 32.4 Concent Red Cell Distribution Width 14.4 Platelet Count 163 Mean Platelet Volume 8.8 Neutrophils (%) (Auto) 75.8 Lymphocytes (%) (Auto) 13.0 Monocytes (%) (Auto) 8.3 Eosinophils (%) (Auto) 2.3 Basophils (%) (Auto) 0.6 Neutrophils # (Auto) 6.6 Lymphocytes # (Auto) 1.1 Monocytes # (Auto) 0.7 Eosinophils # (Auto) 0.2 Basophils # (Auto) 0.1 CBC Comment AUTO DIFF Differential Comment AUTO DIFF CONFIRMED Prothrombin Time 40.8 Prothromb Time International 3.6 Ratio Sodium Level 132 Potassium Level 4.1 Chloride Level 96 Carbon Dioxide Level 26.5 Anion Gap 10 Blood Urea Nitrogen 16 Creatinine 0.77 Estimat Glomerular Filtration 103 Rate Random Glucose 176 Calcium Level 8.1 Phosphorus Level 2.3 Magnesium Level 2.2 Date/Time Procedure Status Source Growth 12/24/15 12:36 Gram Stain Received Sputum Endotracheal Pending 12/24/15 12:36 Sputum Culture Received Sputum Endotracheal Pending 12/23/15 10:29 Aerobic Blood Culture - Preliminary Resulted Blood Peripheral Staph Sp Coagulase Negative 12/23/15 10:29 Anaerobic Blood Culture - Preliminary Resulted Blood Peripheral NO GROWTH IN 1 DAY Jose A Rosales PhD Dec 24, 2015 16:42
[2015-12-25] VITALS (20 sets, daily range): BP systolic 121–159; BP diastolic 71–85; PULSE 71–89; RESP 14–21; TEMP 99.6–100.6; O2SAT 98–100
[2015-12-25] MEDS: INSULIN NovoLIN REGULAR SUPPLEMENTAL SCALE SQ SCH ×5 (01:00→23:58)
[2015-12-25] MEDS: RESP: ALBUTEROL 2.5 MG/IPRATROPIUM 0.5 MG NEB (SCH) INH ×2 (03:26→07:51)
[2015-12-25] MEDS: PIPERACIL-TAZO 3.375 GM PREMIX 50 ML IV SCH ×4 (04:00→21:36)
[2015-12-25] MEDS: CHLORHEXIDINE GLUCONATE 2 % 1 PACK (2 CLOTHS) TOP SCH (04:00)
[2015-12-25 07:52] LABS: AUTOMATED NEUTROPHIL # 4.7 TH/MM3 (1.8-7.7); BASOPHIL % 0.3 % (0.0-2.0); EOSINOPHIL # 0.3 TH/MM3 (0-0.4); EOSINOPHIL % 4.5 % (0.0-4.0); HEMATOCRIT 36.7 % (39.0-51.0); HEMO FLAGS DIFF FINAL; LYMPH % 15.8 % (9.0-44.0); LYMPHOCYTE # 1.1 TH/MM3 (1.0-4.8); MEAN CELL VOLUME 82.2 FL (80.0-100.0); MEAN CORPUSCULAR HEMOGLOBIN 26.7 PG (27.0-34.0); MEAN CORPUSCULAR HGB CONC 32.5 % (32.0-36.0); MONO % 9.7 % (0.0-8.0); NEUT % 69.7 % (16.0-70.0); PLATELET COUNT 124 TH/MM3 (150-450); RED BLOOD COUNT 4.46 MIL/MM3 (4.50-5.90); RED CELL DISTRIBUTION WIDTH 14.2 % (11.6-17.2); WHITE BLOOD COUNT 6.8 TH/MM3 (4.0-11.0)
[2015-12-25 08:03] LABS: INTERNATIONAL NORMALIZED RATIO 3.5 RATIO; PROTHROMBIN TIME - PATIENT 39.6 SEC (9.8-11.4)
--- NOTE | 2015-12-25 08:18 | HHI.CCPN ---
Subjective Remarks/Hospital Course The patient is a 59-year-old male with past medical history of paroxysmal atrial fibrillation, hypertension, stage III a non-Hodgkin's lymphoma status post a chemotherapy last year. He received Rituxan CHOP. He presented to [facility] emergency department with altered mental status. Most of the history was obtained from reviewing medical records as the patient is poor historian. When he woke up of 4 o'clock this morning the patient had some right facial droop associated with headaches. Due to altered mental status CT scan of the brain was obtained which showed no focal or acute intracranial hemorrhage. However, there is an new area of decreased density in the left occipital lobe, suggestive of recent non hemorrhagic infarction and the decreased density in the previously noted right occipital lobe has increased in size. The patient was recently admitted back on December 06 with similar presentation and he had a right occipital juan jose hole brain biopsy by Dr. Marin on December 13. The pathology results pending. The patient became the patient noted to have very sonorous respirations and can and follow any commands in addition he was obtunded. He was subsequently intubated by the emergency department physician and MRI of the brain was obtained which showed a new area of restricted diffusion within the left occipital lobe suggesting acute infarction. No evidence of any acute hemorrhage, midline shift or a fluid collection. When seen the patient is sedated with Diprivan and on full mechanical ventilation. ABG post intubation showed a pH of 7.41, CO2 35, pAO2 100, bicarb of 22, saturation 93% on assist control ventilation rate of 14, tidal volume 550, PEEP five, FIO2 of 40%. Chest x-ray Post intubation showed ET tube above the geno in no acute cardiopulmonary process. His last echocardiogram was obtained in January of last year which showed an EF of 60% with no regional wall motion abnormalities. EKG on arrival showed A fib with RVR at rate of 114 beats per minute. The patient was given Cardizem 20 mg IV push in the emergency department and was initially placed on Cardizem drip. However, now is off. 12/21 No events overnight. Sedated with Diprivan and intubated. Afebrile. For MRA brain , carotids and MRV brain today . 12/22 Patient remains intubated, off sedation. T: 100.1 at midnight. 12/23 No events overnight. Remains off sedation. Had T: 101.3 at 4am. Withdraws to pain. 12/24 Patient remains intubated, on no sedation, T: 100.3 last night. For repeat MRI brain today Objective - Vital Signs Date Time Temp Pulse Resp B/P Pulse Ox O2 Delivery O2 Flow Rate FiO2 12/25/15 08:03 40 12/25/15 07:51 100 12/25/15 06:00 71 12/25/15 04:00 99.6 18 140/79 12/25/15 01:20 Mechanical Ventilator 12/21/15 07:24 3 I/O 12/24/15 12/24/15 12/24/15 07:59 15:59 23:59 Intake Total 980 ml 1355 ml 1101 ml Output Total 550 ml 600 ml 750 ml Balance 430 ml 755 ml 351 ml Result Diagram: 12/25/15 0620 12/24/15 0339 Other Results Laboratory Tests Test 12/25/15 06:20 White Blood Count 6.8 TH/MM3 Red Blood Count 4.46 MIL/MM3 Hemoglobin 11.9 GM/DL Hematocrit 36.7 % Mean Corpuscular Volume 82.2 FL Mean Corpuscular Hemoglobin 26.7 PG Mean Corpuscular Hemoglobin 32.5 % Concent Red Cell Distribution Width 14.2 % Platelet Count 124 TH/MM3 Mean Platelet Volume 9.2 FL Neutrophils (%) (Auto) 69.7 % Lymphocytes (%) (Auto) 15.8 % Monocytes (%) (Auto) 9.7 % Eosinophils (%) (Auto) 4.5 % Basophils (%) (Auto) 0.3 % Neutrophils # (Auto) 4.7 TH/MM3 Lymphocytes # (Auto) 1.1 TH/MM3 Monocytes # (Auto) 0.7 TH/MM3 Eosinophils # (Auto) 0.3 TH/MM3 Basophils # (Auto) 0.0 TH/MM3 CBC Comment DIFF FINAL Differential Comment Prothrombin Time 39.6 SEC Prothromb Time International 3.5 RATIO Ratio Imaging Last Impressions Chest X-Ray 12/23/15 0000 Signed Impressions: Service Date/Time: Wednesday, December 23, 2015 08:32 - CONCLUSION: Left basilar opacity could be atelectasis or minimal infiltrate. Mikie Vargas MD Neck Magnetic Resonance Angiography 12/22/15 1445 Signed Impressions: Service Date/Time: Tuesday, December 22, 2015 09:22 - CONCLUSION: Variant origin of the left vertebral artery from the aortic arch. No evidence of carotid stenosis. Glen Zamora MD Head Magnetic Resonance Angiography 12/22/15 1445 Signed Impressions: Service Date/Time: Tuesday, December 22, 2015 09:22 - CONCLUSION: 1. 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 2. Anterior circulation remains patent without aneurysmal disease. Bboby Gray MD Brain MRI 12/22/15 1339 Signed Impressions: Service Date/Time: Tuesday, December 22, 2015 14:37 - CONCLUSION: Worsening brain appearance with abnormal signal developing in large portions of the brainstem. Glen Zamora MD ADDENDUM: Upon further review of images there is signal identified within the basilar artery consistent with thrombosis. Jonel Jones Jr., MD Head/Brain Mag Res Venography 12/22/15 0000 Signed Impressions: Service Date/Time: Tuesday, December 22, 2015 09:22 - CONCLUSION: Normal MRV. Jonel Jones Jr., MD Head CT 12/21/15 0546 Signed Impressions: Service Date/Time: December 06:01 - CONCLUSION: 1. No focal or acute intracranial hemorrhage. 2. There is a new area of decreased density in the left occipital lobe suggestive of a recent nonhemorrhagic infarction. 3. The decreased density in the previously noted right occipital lobe has increased in size. Michael Hamilton MD Objective Remarks GENERAL: Well-nourished, well-developed patient. SKIN: Warm and dry. HEAD: Normocephalic. EYES: No scleral icterus. No injection or drainage. NECK: Supple, trachea midline. No JVD or lymphadenopathy. Orally intubated CARDIOVASCULAR: Regular rate and rhythm without murmurs, gallops, or rubs. RESPIRATORY: Breath sounds equal bilaterally. No accessory muscle use. GASTROINTESTINAL: Abdomen soft, non-tender, nondistended. MUSCULOSKELETAL: No cyanosis, or edema. BACK: Nontender without obvious deformity. No CVA tenderness. Neuro: intubated, doesn't follow commands. A/P Assessment and Plan IMPRESSION Altered mental status. Vent dependent respiratory failure. Basilar artery thrombosis with pontine, cerebellar, occipital CVA Stage III a non-Hodgkin's lymphoma status post chemotherapy last year Status post brain biopsy on December 13. Atrial fibrillation. Diabetes mellitus Hypertension Hyponatremia Plan Neuro: Off sedation. Monitor neuro status closely. For repeat MRI brain today Neuro: Dr. De Leon, on Keppra 500 mg b.i.d. On Coumadin per neuro. EEG 12/20: Severe encephalopathy. 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 Anterior circulation remains patent without aneurysmal disease. Pulm: Continue with vent support and maintain sats >92%. Bronchodilators, ICU vent bundle. CPAP trials as karlie. Neuro status precluding extubation. CV: Monitor HR and BP keep MAP>65mmHg Echo from 12/07 showed an EF of 60% with no regional wall motion abnormalities. : Monitor renal function Is and Os and electrolyte replacement per protocol. NS 50 ml/hr. Check BMP today GI: On TF-Glucerna 1.5 with goal rate of 45 ml per hour. ID: Continue with abx (Zosyn, Vanco) follow up on cultures Heme: Monitor CBC. Oncology-Dr. Whyte ,follow up on path results. s/p brain biopsy on December 13, by Dr. Marin. Endo: On SSI with Accu-Chek q. 6-hour for glycemic control. TSH: 1.02 GI prophylaxis with Protonix 40 mg daily and DVT prophylaxis with SCDs, Coumadin started by neuro INR 3.5 today Discussed with patient's family and updated them on her condition CCT 35 mins Wil Langston MD Dec 25, 2015 08:18
[2015-12-25] MEDS: levETIRAcetam 500 MG TAB PO SCH ×2 (08:24→20:27)
[2015-12-25] MEDS: CHLORHEXIDINE 0.12% (ORAL KIT) 15 ML CUP MT SCH ×2 (08:24→19:32)
[2015-12-25] MEDS: SODIUM CHLORIDE 0.9% FLUSH 5 ML FLUSH IVF PRN ×2 (08:24→19:32)
[2015-12-25] MEDS: VANCOMYCIN INJ 1,000 MG in SODIUM CHLOR 0.9% 250 ML INJ 250 ML IV SCH ×2 (08:25→20:26)
[2015-12-25] MEDS: PANTOPRAZOLE SODIUM 40 MG VIAL IV SCH (08:25)
[2015-12-25 08:32] LABS: BICARBONATE 26.1 MEQ/L (21.0-32.0); MAGNESIUM 2.1 MG/DL (1.5-2.5); POTASSIUM 4.1 MEQ/L (3.5-5.1)
--- NOTE | 2015-12-25 11:56 | PD.ONC.PN ---
Subjective Subjective Remarks Tmax 100.3 overnight. Multiple family members at bedside. Patient remains intubated. On CPAP. Family members are excited. They tell me he has been spontaneously opening his eyes, or opening his eyes when they ask him to. Objective Data Date Time Temp Pulse Resp B/P Pulse Ox O2 Delivery O2 Flow Rate FiO2 12/25/15 11:22 99 40 12/25/15 11:00 99 100 12/25/15 08:03 40 12/25/15 07:51 100 40 12/25/15 06:00 71 12/25/15 04:15 100 40 12/25/15 04:00 76 12/25/15 04:00 40 12/25/15 04:00 99.6 76 18 140/79 100 12/25/15 02:00 80 12/25/15 01:20 100 Mechanical Ventilator 40 12/25/15 01:20 40 12/25/15 01:19 100 40 12/25/15 00:05 98 40 12/25/15 00:00 99.7 80 15 159/85 100 12/25/15 00:00 80 12/25/15 00:00 40 12/24/15 22:03 100 40 12/24/15 22:00 80 12/24/15 20:00 100 Bi-Pap 40 12/24/15 20:00 40 12/24/15 20:00 82 12/24/15 20:00 100.3 82 14 143/77 100 12/24/15 19:53 100 40 12/24/15 18:00 81 12/24/15 16:00 81 12/24/15 16:00 40 12/24/15 16:00 98.9 88 15 120/70 100 12/24/15 15:07 100 40 12/24/15 14:00 81 12/24/15 12:00 99.3 81 18 118/58 99 12/24/15 12:00 81 12/24/15 12:00 40 12/24/15 11:56 100 40 12/25/15 12/25/15 12/25/15 07:00 15:00 23:00 Intake Total 848 ml Output Total 1400 ml 0 ml Balance -552 ml 0 ml Result Diagram: 12/25/1561912/25/15619 Laboratory Results Laboratory Tests Test 12/25/15 06:20 White Blood Count 6.8 TH/MM3 Red Blood Count 4.46 MIL/MM3 Hemoglobin 11.9 GM/DL Hematocrit 36.7 % Mean Corpuscular Volume 82.2 FL Mean Corpuscular Hemoglobin 26.7 PG Mean Corpuscular Hemoglobin 32.5 % Concent Red Cell Distribution Width 14.2 % Platelet Count 124 TH/MM3 Mean Platelet Volume 9.2 FL Neutrophils (%) (Auto) 69.7 % Lymphocytes (%) (Auto) 15.8 % Monocytes (%) (Auto) 9.7 % Eosinophils (%) (Auto) 4.5 % Basophils (%) (Auto) 0.3 % Neutrophils # (Auto) 4.7 TH/MM3 Lymphocytes # (Auto) 1.1 TH/MM3 Monocytes # (Auto) 0.7 TH/MM3 Eosinophils # (Auto) 0.3 TH/MM3 Basophils # (Auto) 0.0 TH/MM3 CBC Comment DIFF FINAL Differential Comment Prothrombin Time 39.6 SEC Prothromb Time International 3.5 RATIO Ratio Sodium Level 134 MEQ/L Potassium Level 4.1 MEQ/L Chloride Level 97 MEQ/L Carbon Dioxide Level 26.1 MEQ/L Anion Gap 11 MEQ/L Blood Urea Nitrogen 14 MG/DL Creatinine 0.66 MG/DL Estimat Glomerular Filtration 123 ML/MIN Rate Random Glucose 184 MG/DL Calcium Level 8.5 MG/DL Phosphorus Level 3.2 MG/DL Magnesium Level 2.1 MG/DL Culture Results Microbiology Date/Time Procedure Status Source Growth 12/23/15 10:10 Aerobic Blood Culture - Preliminary Resulted Blood Peripheral NO GROWTH IN 2 DAYS 12/23/15 10:10 Anaerobic Blood Culture - Preliminary Resulted Blood Peripheral NO GROWTH IN 2 DAYS 12/23/15 10:29 Aerobic Blood Culture - Preliminary Resulted Blood Peripheral Staph Sp Coagulase Negative 12/23/15 10:29 Anaerobic Blood Culture - Preliminary Resulted Blood Peripheral NO GROWTH IN 2 DAYS 12/24/15 12:36 Gram Stain - Final Resulted Sputum Endotracheal 12/24/15 12:36 Sputum Culture Resulted Sputum Endotracheal Pending 12/24/15 17:20 Aerobic Blood Culture - Preliminary Resulted Blood Peripheral NO GROWTH IN 1 DAY 12/24/15 17:20 Anaerobic Blood Culture - Preliminary Resulted Blood Peripheral NO GROWTH IN 1 DAY 12/24/15 17:29 Aerobic Blood Culture - Preliminary Resulted Blood Peripheral NO GROWTH IN 1 DAY 12/24/15 17:29 Anaerobic Blood Culture - Preliminary Resulted Blood Peripheral NO GROWTH IN 1 DAY Administered Medications Medications (Trade) Dose Ordered Sig/Junior Route PRN Reason Start Time Stop Time Status Last Admin Dose Admin IV Flush (NS Flush) 2 ml UNSCH PRN IVF FLUSH AFTER USING IV ACCESS 12/21/15 06:00 12/25/15 08:24 Propofol (Diprivan 1000 Mg/100ml Inj) search Sets for Drip. NOW PRN IV SEDATION 12/21/15 08:30 12/22/15 06:25 Pantoprazole Sodium (Protonix Inj) 40 mg DAILY IV 12/21/15 13:00 12/25/15 08:25 Miscellaneous Information 1 Q361D XX 12/21/15 13:00 12/21/15 13:00 Chlorhexidine Gluconate (Chlorhexidine 2% Cloth) 3 pack Taper DAILY@04 TOP 12/22/15 04:00 12/17/16 03:59 12/25/15 04:00 Insulin Human Regular (NovoLIN R SUPPLEMENTAL SCALE) 1 Q6H SQ 12/21/15 13:00 12/25/15 11:46 Levetriacetam (Keppra) 500 mg Q12HR PO 12/21/15 13:45 12/25/15 08:24 Warfarin Sodium (Coumadin) 5 mg DAILY@16 PO 12/22/15 16:00 Hold 12/23/15 16:00 Chlorhexidine Gluconate 15 ml 15 ml BID@08,20 MT 12/22/15 20:00 12/25/15 08:24 Sodium Chloride (NS 1000 ml Inj) 1,000 ml @ 50 mls/hr Q20H IV 12/22/15 18:44 12/24/15 20:02 Acetaminophen 650 mg 650 mg Q6H PRN PO TEMP > 100 12/23/15 02:45 12/23/15 13:06 Piperacillin Sod/ Tazobactam Sod 50 ml @ 100 mls/hr Q6H IV 12/23/15 10:00 12/25/15 08:25 Vancomycin HCl/ Sodium Chloride (Vancomycin Inj/ NS 250 ml Inj) 250 ml @ 250 mls/hr Q12H IV 12/24/15 08:45 12/25/15 08:25 Objective Remarks GENERAL: Critically ill male, lying in bed, intubated. SKIN: Warm and dry. HEAD: Normocephalic. EYES: No injection or drainage. NECK: Supple, trachea midline. CARDIOVASCULAR: +S1/S2 RESPIRATORY: Breath sounds equal bilaterally. No accessory muscle use. on mechanical ventilation. GASTROINTESTINAL: Abdomen soft, non-tender, nondistended. EXTREMITIES: No cyanosis. SCD's, bilateral lower extremities. NEUROLOGICAL: Opens eyes during the exam. does not track with eyes. +withdraws from pain in all extremities. pupils are reactive. Assessment/Plan Problem List: (1) CVA (cerebral vascular accident) Status: Acute Plan: --neurology following --INR supratherapeutic, will coumadin on hold. --MRI/MRA brain, 12/21: showed complete occlusion basilar system and both posterior cerebral arteries (2) Non-Hodgkin lymphoma Status: Chronic Plan: --Brain mass status post biopsy on last admission, the pathology report is still pending. --pathology has been sent to [facility] for second opinion. --status post six cycles of Rituxan and CHOP chemotherapy completed last May. --no evidence of residual or recurrent disease on the October or November CT C/A/P Assessment 60y/o with h/o Non-Hodgkin's lymphoma. Admitted for acute CVA. Atrial fibrillation. Attending Statement pt is off sedation x 2 days. Not responsive. Per family opened eyes in the morning. Brain bx result is still pending Repeat MRI brain = evolving brain stem stroke. d/w . They want to talk to DR De Leon. d/w DR Sheriff ( his PMD ) d/w RN The exam, history, and the medical decision-making described in the above note were completed with the assistance of the mid-level provider. I reviewed and agree with the findings presented. I attest that I had a [id number] encounter with the patient on the same day, and personally performed and documented my assessment and findings in the medical record. Magaly Cortez Dec 25, 2015 11:56 Ed Whyte MD Dec 25, 2015 13:23
--- NOTE | 2015-12-25 12:26 | RADRPT ---
EXAM DATE/TIME: 12/25/2015 10:40 [facility] COMPARISON: MRI BRAIN W & W/O CONTRAST, December 07, 2015, 19:07. MRI BRAIN W & W/O CONTRAST, December 21, 2015, 10:00. MRA BRAIN W/O CONTRAST, December 22, 2015, 9:22. MRI BRAIN W/O CONTRAST, December 22, 2015, 14:37. INDICATIONS : Change in mentation, Lethargy. MEDICAL HISTORY : Lymphoma. Hypertension. Diabetes mellitus type 2. SURGICAL HISTORY : Brain biopsy, left elbow. ENCOUNTER: Sequela ACUITY: 2 weeks PAIN SCORE: 0/10 LOCATION: brain TECHNIQUE: Multiplanar, multisequence MRI of the brain was performed without contrast. FINDINGS: Again seen is the right occipital infarct and infarct involving most of the brain stem. This has pro gressed. Evolving ischemic changes are seen in the left occipital region as well. There is some dolichoectasia of the vertebral arteries. Occlusion of the basilar artery is again eva dent. Fourth ventricle is encroached upon to a minimal degree. There is no hemorrhage as yet. CONCLUSION: Evolving acute infarction involving most of the brain stem now in both occipital lobe s, all consistent with the basilar thrombosis. Octavio Ramírez MD FACR on December 25, 2015 at 12:00 Board Certified Radiologist. This report was verified electronically.
--- NOTE | 2015-12-25 16:12 | HHI.PR ---
Subjective Remarks afib Objective Vital Signs Date Time Temp Pulse Resp B/P Pulse Ox O2 Delivery O2 Flow Rate FiO2 12/25/15 15:46 99 40 12/25/15 14:00 79 12/25/15 12:40 40 12/25/15 12:00 99.8 78 21 121/71 99 12/25/15 12:00 78 12/25/15 11:22 99 40 12/25/15 11:00 99 100 12/25/15 10:00 85 12/25/15 08:03 40 12/25/15 08:00 99.7 85 14 149/82 100 12/25/15 08:00 89 12/25/15 07:51 100 40 12/25/15 06:00 71 12/25/15 04:15 100 40 12/25/15 04:00 76 12/25/15 04:00 40 12/25/15 04:00 99.6 76 18 140/79 100 12/25/15 02:00 80 12/25/15 01:20 100 Mechanical Ventilator 40 12/25/15 01:20 40 12/25/15 01:19 100 40 12/25/15 00:05 98 40 12/25/15 00:00 99.7 80 15 159/85 100 12/25/15 00:00 80 12/25/15 00:00 40 12/24/15 22:03 100 40 12/24/15 22:00 80 12/24/15 20:00 100 Bi-Pap 40 12/24/15 20:00 40 12/24/15 20:00 82 12/24/15 20:00 100.3 82 14 143/77 100 12/24/15 19:53 100 40 12/24/15 18:00 81 I/O 12/24/15 12/24/15 12/24/15 12/25/15 12/25/15 12/25/15 07:00 15:00 23:00 07:00 15:00 23:00 Intake Total 980 ml 1355 ml 1101 ml 848 ml 979 ml Output Total 550 ml 600 ml 750 ml 1400 ml 750 ml Balance 430 ml 755 ml 351 ml -552 ml 229 ml Intake Oral 0 ml 0 ml IV Total 602 ml 900 ml 729 ml 450 ml 572 ml Tube Feeding 318 ml 405 ml 312 ml 338 ml 307 ml Other 60 ml 50 ml 60 ml 60 ml 100 ml Output Urine Total 550 ml 600 ml 750 ml 1400 ml 750 ml Tube Feeding Residual Discard 0 ml 0 ml 0 ml # Bowel Movements 0 0 0 0 0 Result Diagram: 12/25/15 0612/25/15 0620 Objective Remarks can open eyes to command 3/4 bilat pupil = no other movement seen decerebrate posture rue Assessment and Plan Assessment and Plan mrv shows basilar occlusion and mri shows sign bilat occipital and some small r cbllr acute cva the colin is slightly hyperintense almost full thickness and looks like major pontine infarct however not as bright as we usually see with infarct he could have a penumbra effect in colin so could be recoverable or just needs time to change signal plan is to keep bp up recheck mri friday if more bright then family thinking of decisions no sedatives i rec chemical code only will consider we discussed and we will keep anticoag going for now and i told her risk of bleeding into upper brain with some blood signal in original cva i dw dr vick and nitin cancino and neither felt it would be helpful to try and extract basilar clot and could kill him they both felt the colin was infarcted he could be locked in he is acting as if colin is infarcted although slight chance it could be stunned/ penumbra neuro will follow over weekend i will be back 12/25/15 i dw family at length and reviewed films with them no major change in brainstem brightness on mri inr 3.5 target 2-2.5 i think they would like to see how he does over the next 3 months and will probably go for trach if needed and peg he is locked in for the most part but full aware Steven De Leon MD Dec 25, 2015 16:12
[2015-12-25] MEDS: ACETAMINOPHEN 325 MG TAB PO PRN (20:27)
[2015-12-26] VITALS (22 sets, daily range): BP systolic 121–147; BP diastolic 73–86; PULSE 79–89; RESP 14–17; TEMP 99.4–100.4; O2SAT 96–100
[2015-12-26] MEDS: CHLORHEXIDINE GLUCONATE 2 % 1 PACK (2 CLOTHS) TOP SCH (02:00)
[2015-12-26] MEDS: ACETAMINOPHEN 325 MG TAB PO PRN ×2 (02:09→20:46)
[2015-12-26] MEDS: PIPERACIL-TAZO 3.375 GM PREMIX 50 ML IV SCH ×4 (03:39→22:47)
[2015-12-26 04:56] LABS: AUTOMATED NEUTROPHIL # 4.1 TH/MM3 (1.8-7.7); BASOPHIL % 0.4 % (0.0-2.0); EOSINOPHIL # 0.3 TH/MM3 (0-0.4); EOSINOPHIL % 5.3 % (0.0-4.0); HEMATOCRIT 37.7 % (39.0-51.0); HEMO FLAGS DIFF FINAL; LYMPH % 16.7 % (9.0-44.0); MEAN CORPUSCULAR HEMOGLOBIN 26.5 PG (27.0-34.0); MEAN CORPUSCULAR HGB CONC 31.9 % (32.0-36.0); MONO % 10.6 % (0.0-8.0); PLATELET COUNT 142 TH/MM3 (150-450); RED BLOOD COUNT 4.54 MIL/MM3 (4.50-5.90); RED CELL DISTRIBUTION WIDTH 14.3 % (11.6-17.2); WHITE BLOOD COUNT 6.2 TH/MM3 (4.0-11.0)
[2015-12-26 05:00] LABS: INTERNATIONAL NORMALIZED RATIO 2.6 RATIO; PROTHROMBIN TIME - PATIENT 28.5 SEC (9.8-11.4)
[2015-12-26 05:28] LABS: BICARBONATE 27.1 MEQ/L (21.0-32.0); POTASSIUM 3.9 MEQ/L (3.5-5.1)
[2015-12-26] MEDS: INSULIN NovoLIN REGULAR SUPPLEMENTAL SCALE SQ SCH ×3 (06:12→17:56)
--- NOTE | 2015-12-26 07:58 | HHI.PR ---
Subjective Remarks afib Objective Vital Signs Date Time Temp Pulse Resp B/P Pulse Ox O2 Delivery O2 Flow Rate FiO2 12/26/15 06:00 84 12/26/15 05:24 100 40 12/26/15 04:00 40 12/26/15 04:00 81 12/26/15 04:00 99.4 81 16 147/83 99 12/26/15 02:34 99 40 12/26/15 02:00 84 12/26/15 02:00 100.1 12/26/15 00:11 100 40 12/26/15 00:00 40 12/26/15 00:00 86 12/26/15 00:00 100.3 86 16 142/75 100 12/25/15 22:00 79 12/25/15 21:27 16 12/25/15 21:07 99 40 12/25/15 20:00 100.6 84 17 130/82 100 12/25/15 20:00 40 12/25/15 20:00 84 12/25/15 18:00 87 12/25/15 16:00 80 12/25/15 16:00 100.5 80 16 122/74 100 12/25/15 16:00 40 12/25/15 15:46 99 40 12/25/15 14:00 79 12/25/15 12:40 40 12/25/15 12:00 99.8 78 21 121/71 99 12/25/15 12:00 78 12/25/15 11:22 99 40 12/25/15 11:00 99 100 12/25/15 10:00 85 12/25/15 08:03 40 12/25/15 08:00 99.7 85 14 149/82 100 12/25/15 08:00 89 I/O 12/25/15 12/25/15 12/25/15 12/26/15 12/26/15 12/26/15 06:59 14:59 22:59 06:59 14:59 22:59 Intake Total 848 ml 979 ml 724 ml 625 ml Output Total 1400 ml 750 ml 750 ml 900 ml Balance -552 ml 229 ml -26 ml -275 ml IV Total 450 ml 572 ml 346 ml 203 ml Tube Feeding 338 ml 307 ml 318 ml 362 ml Other 60 ml 100 ml 60 ml 60 ml Output Urine Total 1400 ml 750 ml 750 ml 900 ml Tube Feeding Residual Discard 0 ml 0 ml 0 ml # Bowel Movements 0 0 0 0 Result Diagram: 12/26/15 0351 12/26/15 0351 Objective Remarks not folowing commands this am but early Assessment and Plan Assessment and Plan mrv shows basilar occlusion and mri shows sign bilat occipital and some small r cbllr acute cva the colin is slightly hyperintense almost full thickness and looks like major pontine infarct however not as bright as we usually see with infarct he could have a penumbra effect in colin so could be recoverable or just needs time to change signal plan is to keep bp up recheck mri friday if more bright then family thinking of decisions no sedatives i rec chemical code only will consider we discussed and we will keep anticoag going for now and i told her risk of bleeding into upper brain with some blood signal in original cva i dw dr vick and nitin cancino and neither felt it would be helpful to try and extract basilar clot and could kill him they both felt the colin was infarcted he could be locked in he is acting as if colin is infarcted although slight chance it could be stunned/ penumbra neuro will follow over weekend i will be back 12/25/15 i dw family at length and reviewed films with them no major change in brainstem brightness on mri inr 3.5 target 2-2.5 i think they would like to see how he does over the next 3 months and will probably go for trach if needed and peg he is locked in for the most part but full aware 12/26/15 inr 2.6 i dw son yest had some vertical eye movements to command monitor Steven De Leno MD Dec 26, 2015 07:58
--- NOTE | 2015-12-26 08:02 | HHI.CCPN ---
Subjective Remarks/Hospital Course The patient is a 59-year-old male with past medical history of paroxysmal atrial fibrillation, hypertension, stage III a non-Hodgkin's lymphoma status post a chemotherapy last year. He received Rituxan CHOP. He presented to [facility] emergency department with altered mental status. Most of the history was obtained from reviewing medical records as the patient is poor historian. When he woke up of 4 o'clock this morning the patient had some right facial droop associated with headaches. Due to altered mental status CT scan of the brain was obtained which showed no focal or acute intracranial hemorrhage. However, there is an new area of decreased density in the left occipital lobe, suggestive of recent non hemorrhagic infarction and the decreased density in the previously noted right occipital lobe has increased in size. The patient was recently admitted back on December 06 with similar presentation and he had a right occipital juan jose hole brain biopsy by Dr. Marin on December 13. The pathology results pending. The patient became the patient noted to have very sonorous respirations and can and follow any commands in addition he was obtunded. He was subsequently intubated by the emergency department physician and MRI of the brain was obtained which showed a new area of restricted diffusion within the left occipital lobe suggesting acute infarction. No evidence of any acute hemorrhage, midline shift or a fluid collection. When seen the patient is sedated with Diprivan and on full mechanical ventilation. ABG post intubation showed a pH of 7.41, CO2 35, pAO2 100, bicarb of 22, saturation 93% on assist control ventilation rate of 14, tidal volume 550, PEEP five, FIO2 of 40%. Chest x-ray Post intubation showed ET tube above the geno in no acute cardiopulmonary process. His last echocardiogram was obtained in January of last year which showed an EF of 60% with no regional wall motion abnormalities. EKG on arrival showed A fib with RVR at rate of 114 beats per minute. The patient was given Cardizem 20 mg IV push in the emergency department and was initially placed on Cardizem drip. However, now is off. 12/21 No events overnight. Sedated with Diprivan and intubated. Afebrile. For MRA brain , carotids and MRV brain today . 12/22 Patient remains intubated, off sedation. T: 100.1 at midnight. 12/23 No events overnight. Remains off sedation. Had T: 101.3 at 4am. Withdraws to pain. 12/24 Patient remains intubated, on no sedation, T: 100.3 last night. For repeat MRI brain today 12/25 No events overnight. Tolerated CPAP for 4-5 hrs yesterday. T:100.1. 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 Objective - Vital Signs Date Time Temp Pulse Resp B/P Pulse Ox O2 Delivery O2 Flow Rate FiO2 12/26/15 06:00 84 12/26/15 05:24 100 40 12/26/15 04:00 99.4 16 147/83 12/25/15 01:20 Mechanical Ventilator I/O 12/25/15 12/25/15 12/26/15 08:00 16:00 00:00 Intake Total 848 ml 979 ml 724 ml Output Total 1400.0 ml 750 ml 750 ml Balance -552.0 ml 229 ml -26 ml Result Diagram: 12/26/15 0351 12/26/15 0351 Other Results Laboratory Tests Test 12/26/15 03:51 White Blood Count 6.2 TH/MM3 Red Blood Count 4.54 MIL/MM3 Hemoglobin 12.0 GM/DL Hematocrit 37.7 % Mean Corpuscular Volume 83.0 FL Mean Corpuscular Hemoglobin 26.5 PG Mean Corpuscular Hemoglobin 31.9 % Concent Red Cell Distribution Width 14.3 % Platelet Count 142 TH/MM3 Mean Platelet Volume 9.4 FL Neutrophils (%) (Auto) 67.0 % Lymphocytes (%) (Auto) 16.7 % Monocytes (%) (Auto) 10.6 % Eosinophils (%) (Auto) 5.3 % Basophils (%) (Auto) 0.4 % Neutrophils # (Auto) 4.1 TH/MM3 Lymphocytes # (Auto) 1.0 TH/MM3 Monocytes # (Auto) 0.7 TH/MM3 Eosinophils # (Auto) 0.3 TH/MM3 Basophils # (Auto) 0.0 TH/MM3 CBC Comment DIFF FINAL Differential Comment Prothrombin Time 28.5 SEC Prothromb Time International 2.6 RATIO Ratio Sodium Level 133 MEQ/L Potassium Level 3.9 MEQ/L Chloride Level 97 MEQ/L Carbon Dioxide Level 27.1 MEQ/L Anion Gap 9 MEQ/L Blood Urea Nitrogen 17 MG/DL Creatinine 0.67 MG/DL Estimat Glomerular Filtration 121 ML/MIN Rate Random Glucose 175 MG/DL Calcium Level 8.3 MG/DL Magnesium Level 2.0 MG/DL Imaging Last Impressions Chest X-Ray 12/23/15 0000 Signed Impressions: Service Date/Time: Wednesday, December 23, 2015 08:32 - CONCLUSION: Left basilar opacity could be atelectasis or minimal infiltrate. Mikie Vargas MD Neck Magnetic Resonance Angiography 12/22/15 1445 Signed Impressions: Service Date/Time: Tuesday, December 22, 2015 09:22 - CONCLUSION: Variant origin of the left vertebral artery from the aortic arch. No evidence of carotid stenosis. Glen Zamora MD Head Magnetic Resonance Angiography 12/22/15 1445 Signed Impressions: Service Date/Time: Tuesday, December 22, 2015 09:22 - CONCLUSION: 1. 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 2. Anterior circulation remains patent without aneurysmal disease. Bobby Gray MD Brain MRI 12/22/15 1339 Signed Impressions: Service Date/Time: Tuesday, December 22, 2015 14:37 - CONCLUSION: Worsening brain appearance with abnormal signal developing in large portions of the brainstem. Glen Zamora MD ADDENDUM: Upon further review of images there is signal identified within the basilar artery consistent with thrombosis. Jonel Jones Jr., MD Head/Brain Mag Res Venography 12/22/15 0000 Signed Impressions: Service Date/Time: Tuesday, December 22, 2015 09:22 - CONCLUSION: Normal MRV. Jonel Jones Jr., MD Head CT 12/21/15 0546 Signed Impressions: Service Date/Time: December 06:01 - CONCLUSION: 1. No focal or acute intracranial hemorrhage. 2. There is a new area of decreased density in the left occipital lobe suggestive of a recent nonhemorrhagic infarction. 3. The decreased density in the previously noted right occipital lobe has increased in size. Michael Hamilton MD Objective Remarks GENERAL: Well-nourished, well-developed patient. SKIN: Warm and dry. HEAD: Normocephalic. EYES: No scleral icterus. No injection or drainage. NECK: Supple, trachea midline. No JVD or lymphadenopathy. Orally intubated CARDIOVASCULAR: Regular rate and rhythm without murmurs, gallops, or rubs. RESPIRATORY: Breath sounds equal bilaterally. No accessory muscle use. GASTROINTESTINAL: Abdomen soft, non-tender, nondistended. MUSCULOSKELETAL: No cyanosis, or edema. BACK: Nontender without obvious deformity. No CVA tenderness. Neuro: intubated, doesn't follow commands. A/P Assessment and Plan IMPRESSION Altered mental status. Vent dependent respiratory failure. Basilar artery thrombosis with pontine, cerebellar, occipital CVA Stage III a non-Hodgkin's lymphoma status post chemotherapy last year Status post brain biopsy on December 13. Atrial fibrillation. Diabetes mellitus Hypertension Hyponatremia Plan Neuro: Off sedation. Monitor neuro status closely. Neuro: Dr. De Leon, on Keppra 500 mg b.i.d. On Coumadin per neuro. Repeat MRI brain 12/24: showed evolving acute infarction in both occipital lobes consistent with basilar thrombosis. EEG 12/20: Severe encephalopathy. 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 Anterior circulation remains patent without aneurysmal disease. Pulm: Continue with vent support and maintain sats >92%. Bronchodilators, ICU vent bundle. CPAP trials as karlie. Family leaning toward trach and PEG ( awaiting their decision) CV: Monitor HR and BP keep MAP>65mmHg Echo from 12/07 showed an EF of 60% with no regional wall motion abnormalities. : Monitor renal function Is and Os and electrolyte replacement per protocol. GI: On TF-Glucerna 1.5 with goal rate of 45 ml per hour. ID: Continue with abx (Zosyn, Vanco) follow up on cultures ( no growth to date) . ? central fever. Heme: Monitor CBC. Oncology-Dr. Whyte ,follow up on path results. s/p brain biopsy on December 13, by Dr. Marin. Endo: On SSI with Accu-Chek q. 6-hour for glycemic control. TSH: 1.02 GI prophylaxis with Protonix 40 mg daily and DVT prophylaxis with SCDs, Coumadin started by neuro INR 2.6 today CCT 35 mins Wil Langston MD Dec 26, 2015 08:02
[2015-12-26] MEDS: CHLORHEXIDINE 0.12% (ORAL KIT) 15 ML CUP MT SCH ×2 (08:20→19:46)
[2015-12-26] MEDS: levETIRAcetam 500 MG TAB PO SCH ×2 (08:20→20:46)
[2015-12-26] MEDS: SODIUM CHLORIDE 0.9% FLUSH 5 ML FLUSH IVF PRN ×2 (08:21→19:46)
[2015-12-26] MEDS: VANCOMYCIN INJ 1,000 MG in SODIUM CHLOR 0.9% 250 ML INJ 250 ML IV SCH ×2 (08:21→20:47)
[2015-12-26] MEDS: PANTOPRAZOLE SODIUM 40 MG VIAL IV SCH (08:21)
--- NOTE | 2015-12-26 13:27 | PD.ONC.PN ---
Subjective Subjective Remarks Tmax 100.3 overnight. Patient remains intubated, on mechanical ventilation. The family has noticed the patient moving his eyes to commands. Objective Data Date Time Temp Pulse Resp B/P Pulse Ox O2 Delivery O2 Flow Rate FiO2 12/26/15 11:25 100 35 12/26/15 10:44 99 35 12/26/15 10:44 35 12/26/15 10:15 40 12/26/15 10:00 89 12/26/15 08:00 99.6 80 16 131/73 99 12/26/15 08:00 40 12/26/15 08:00 80 12/26/15 07:45 99 35 12/26/15 06:00 84 12/26/15 05:24 100 40 12/26/15 04:00 40 12/26/15 04:00 81 12/26/15 04:00 99.4 81 16 147/83 99 12/26/15 02:34 99 40 12/26/15 02:00 84 12/26/15 02:00 100.1 12/26/15 00:11 100 40 12/26/15 00:00 40 12/26/15 00:00 86 12/26/15 00:00 100.3 86 16 142/75 100 12/25/15 22:00 79 12/25/15 21:27 16 12/25/15 21:07 99 40 12/25/15 20:00 100.6 84 17 130/82 100 12/25/15 20:00 40 12/25/15 20:00 84 12/25/15 18:00 87 12/25/15 16:00 80 12/25/15 16:00 100.5 80 16 122/74 100 12/25/15 16:00 40 12/25/15 15:46 99 40 12/25/15 14:00 79 12/26/15 12/26/15 12/26/15 07:00 15:00 23:00 Intake Total 625 ml Output Total 900 ml 0 ml Balance -275 ml 0 ml Result Diagram: 12/26/15 0351 12/26/15 0351 Laboratory Results Laboratory Tests Test 12/26/15 03:51 White Blood Count 6.2 TH/MM3 Red Blood Count 4.54 MIL/MM3 Hemoglobin 12.0 GM/DL Hematocrit 37.7 % Mean Corpuscular Volume 83.0 FL Mean Corpuscular Hemoglobin 26.5 PG Mean Corpuscular Hemoglobin 31.9 % Concent Red Cell Distribution Width 14.3 % Platelet Count 142 TH/MM3 Mean Platelet Volume 9.4 FL Neutrophils (%) (Auto) 67.0 % Lymphocytes (%) (Auto) 16.7 % Monocytes (%) (Auto) 10.6 % Eosinophils (%) (Auto) 5.3 % Basophils (%) (Auto) 0.4 % Neutrophils # (Auto) 4.1 TH/MM3 Lymphocytes # (Auto) 1.0 TH/MM3 Monocytes # (Auto) 0.7 TH/MM3 Eosinophils # (Auto) 0.3 TH/MM3 Basophils # (Auto) 0.0 TH/MM3 CBC Comment DIFF FINAL Differential Comment Prothrombin Time 28.5 SEC Prothromb Time International 2.6 RATIO Ratio Sodium Level 133 MEQ/L Potassium Level 3.9 MEQ/L Chloride Level 97 MEQ/L Carbon Dioxide Level 27.1 MEQ/L Anion Gap 9 MEQ/L Blood Urea Nitrogen 17 MG/DL Creatinine 0.67 MG/DL Estimat Glomerular Filtration 121 ML/MIN Rate Random Glucose 175 MG/DL Calcium Level 8.3 MG/DL Magnesium Level 2.0 MG/DL Culture Results Microbiology Date/Time Procedure Status Source Growth 12/24/15 12:36 Gram Stain - Final Resulted Sputum Endotracheal 12/24/15 12:36 Sputum Culture - Preliminary Resulted Sputum Endotracheal RARE GROWTH NORMAL RESPIRATORY ROSEMARIE ... 12/24/15 17:20 Aerobic Blood Culture - Preliminary Resulted Blood Peripheral NO GROWTH IN 2 DAYS 12/24/15 17:20 Anaerobic Blood Culture - Preliminary Resulted Blood Peripheral NO GROWTH IN 2 DAYS 12/24/15 17:29 Aerobic Blood Culture - Preliminary Resulted Blood Peripheral NO GROWTH IN 2 DAYS 12/24/15 17:29 Anaerobic Blood Culture - Preliminary Resulted Blood Peripheral NO GROWTH IN 2 DAYS Administered Medications Medications (Trade) Dose Ordered Sig/Junior Route PRN Reason Start Time Stop Time Status Last Admin Dose Admin IV Flush (NS Flush) 2 ml UNSCH PRN IVF FLUSH AFTER USING IV ACCESS 12/21/15 06:00 12/26/15 08:21 Propofol (Diprivan 1000 Mg/100ml Inj) search Sets for Drip. NOW PRN IV SEDATION 12/21/15 08:30 12/22/15 06:25 Pantoprazole Sodium (Protonix Inj) 40 mg DAILY IV 12/21/15 13:00 12/26/15 08:21 Miscellaneous Information 1 Q361D XX 12/21/15 13:00 12/21/15 13:00 Chlorhexidine Gluconate (Chlorhexidine 2% Cloth) 3 pack Taper DAILY@04 TOP 12/22/15 04:00 12/17/16 03:59 12/26/15 02:00 Insulin Human Regular (NovoLIN R SUPPLEMENTAL SCALE) 1 Q6H SQ 12/21/15 13:00 12/26/15 12:38 Levetriacetam (Keppra) 500 mg Q12HR PO 12/21/15 13:45 12/26/15 08:20 Chlorhexidine Gluconate (Peridex 0.12% Liq) 15 ml BID@08,20 MT 12/22/15 20:00 12/26/15 08:20 Acetaminophen 650 mg 650 mg Q6H PRN PO TEMP > 100 12/23/15 02:45 12/26/15 02:09 Piperacillin Sod/ Tazobactam Sod 50 ml @ 100 mls/hr Q6H IV 12/23/15 10:00 12/26/15 08:20 Vancomycin HCl/ Sodium Chloride (Vancomycin Inj/ NS 250 ml Inj) 250 ml @ 250 mls/hr Q12H IV 12/24/15 08:45 12/26/15 08:21 Objective Remarks GENERAL: Middle aged male, intubated. SKIN: Warm and dry. HEAD: Normocephalic. EYES: No injection or drainage. NECK: Supple, trachea midline. CARDIOVASCULAR: +S1/S2 RESPIRATORY: Breath sounds equal bilaterally. No accessory muscle use. on mechanical ventilation. GASTROINTESTINAL: Abdomen soft, non-tender, nondistended. EXTREMITIES: No cyanosis. SCD's, bilateral lower extremities. NEUROLOGICAL: attempts to open eyelids during exam. follows command to look superiorly and inferiorly with eyes. withdraws from pain in all extremities. Assessment/Plan Problem List: (1) CVA (cerebral vascular accident) Status: Acute Plan: --neurology following, repeat MRI showed evolving acute infarction --on coumadin --MRI/MRA brain, 12/21: showed complete occlusion basilar system and both posterior cerebral arteries (2) Non-Hodgkin lymphoma Status: Chronic Plan: --Brain mass status post biopsy on last admission, the pathology report is still pending. --pathology has been sent to [facility] for second opinion. --status post six cycles of Rituxan and CHOP chemotherapy completed last May. --no evidence of residual or recurrent disease on the October or November CT C/A/P Assessment 60y/o with h/o Non-Hodgkin's lymphoma. Admitted for acute CVA. Atrial fibrillation. Attending Statement some response per family on vent. brain mass bx result pending will follow. Magaly Cortez Dec 26, 2015 13:27 Ed Whyte MD Dec 26, 2015 21:37
[2015-12-26] MEDS: WARFARIN SOD 4 MG TAB PO SCH (14:48)
[2015-12-27] VITALS (18 sets, daily range): BP systolic 117–132; BP diastolic 73–82; PULSE 70–93; RESP 15–18; TEMP 99.1–100.3; O2SAT 97–100
[2015-12-27] MEDS: INSULIN NovoLIN REGULAR SUPPLEMENTAL SCALE SQ SCH ×4 (00:34→17:47)
[2015-12-27] MEDS: ACETAMINOPHEN 325 MG TAB PO PRN (03:29)
[2015-12-27] MEDS: PIPERACIL-TAZO 3.375 GM PREMIX 50 ML IV SCH ×4 (03:29→21:16)
[2015-12-27] MEDS: CHLORHEXIDINE GLUCONATE 2 % 1 PACK (2 CLOTHS) TOP SCH (03:31)
[2015-12-27 07:15] LABS: AUTOMATED NEUTROPHIL # 4.2 TH/MM3 (1.8-7.7); BASOPHIL # 0.1 TH/MM3 (0-0.2); BASOPHIL % 0.9 % (0.0-2.0); EOSINOPHIL # 0.4 TH/MM3 (0-0.4); EOSINOPHIL % 5.7 % (0.0-4.0); HEMATOCRIT 36.6 % (39.0-51.0); HEMO FLAGS DIFF FINAL; LYMPH % 17.7 % (9.0-44.0); LYMPHOCYTE # 1.1 TH/MM3 (1.0-4.8); MEAN CELL VOLUME 83.6 FL (80.0-100.0); MEAN CORPUSCULAR HEMOGLOBIN 26.7 PG (27.0-34.0); MONO % 9.5 % (0.0-8.0); NEUT % 66.2 % (16.0-70.0); PLATELET COUNT 149 TH/MM3 (150-450); RED BLOOD COUNT 4.37 MIL/MM3 (4.50-5.90); RED CELL DISTRIBUTION WIDTH 14.2 % (11.6-17.2); WHITE BLOOD COUNT 6.4 TH/MM3 (4.0-11.0)
[2015-12-27 07:19] LABS: INTERNATIONAL NORMALIZED RATIO 2.4 RATIO; PROTHROMBIN TIME - PATIENT 26.9 SEC (9.8-11.4)
[2015-12-27 07:32] LABS: BICARBONATE 29.6 MEQ/L (21.0-32.0); MAGNESIUM 2.2 MG/DL (1.5-2.5); POTASSIUM 4.2 MEQ/L (3.5-5.1)
--- NOTE | 2015-12-27 08:00 | HHI.PR ---
Subjective Remarks afib Objective Vital Signs Date Time Temp Pulse Resp B/P Pulse Ox O2 Delivery O2 Flow Rate FiO2 12/27/15 06:00 75 12/27/15 04:29 15 12/27/15 04:00 100.1 83 15 132/76 100 12/27/15 04:00 35 12/27/15 04:00 83 12/27/15 03:48 98 35 12/27/15 02:00 80 12/27/15 00:55 97 35 12/27/15 00:00 99.7 83 15 132/73 100 12/27/15 00:00 83 12/27/15 00:00 35 12/26/15 22:00 85 12/26/15 21:55 99 35 12/26/15 20:00 83 12/26/15 20:00 35 12/26/15 20:00 100.4 14 140/86 98 12/26/15 19:38 100 35 12/26/15 18:00 85 12/26/15 16:15 98 35 12/26/15 16:00 89 12/26/15 16:00 40 12/26/15 16:00 99.9 89 14 138/81 100 12/26/15 14:00 79 12/26/15 13:00 96 40 12/26/15 12:00 100.2 79 17 121/74 100 12/26/15 12:00 40 12/26/15 12:00 79 12/26/15 11:25 100 35 12/26/15 10:44 99 35 12/26/15 10:44 35 12/26/15 10:15 40 12/26/15 10:00 89 12/26/15 08:00 99.6 80 16 131/73 99 12/26/15 08:00 40 12/26/15 08:00 80 I/O 12/26/15 12/26/15 12/26/15 12/27/15 12/27/15 12/27/15 07:00 15:00 23:00 07:00 15:00 23:00 Intake Total 625 ml 872 ml 694 ml 549 ml Output Total 900 ml 700 ml 625 ml 1000 ml Balance -275 ml 172 ml 69 ml -451 ml IV Total 203 ml 384 ml 345 ml 180 ml Tube Feeding 362 ml 388 ml 289 ml 309 ml Other 60 ml 100 ml 60 ml 60 ml Output Urine Total 900 ml 700 ml 625 ml 1000 ml Tube Feeding Residual Discard 0 ml 0 ml # Bowel Movements 0 0 0 0 Result Diagram: 12/27/1565512/27/15655 Objective Remarks pupil = still following eye commands late yest acc to family Assessment and Plan Assessment and Plan mrv shows basilar occlusion and mri shows sign bilat occipital and some small r cbllr acute cva the colin is slightly hyperintense almost full thickness and looks like major pontine infarct however not as bright as we usually see with infarct he could have a penumbra effect in colin so could be recoverable or just needs time to change signal plan is to keep bp up recheck mri friday if more bright then family thinking of decisions no sedatives i rec chemical code only will consider we discussed and we will keep anticoag going for now and i told her risk of bleeding into upper brain with some blood signal in original cva i dw dr vick and nitin cancino and neither felt it would be helpful to try and extract basilar clot and could kill him they both felt the colin was infarcted he could be locked in he is acting as if colin is infarcted although slight chance it could be stunned/ penumbra neuro will follow over weekend i will be back 12/25/15 i dw family at length and reviewed films with them no major change in brainstem brightness on mri inr 3.5 target 2-2.5 i think they would like to see how he does over the next 3 months and will probably go for trach if needed and peg he is locked in for the most part but full aware 12/26/15 inr 2.6 i dw son yest had some vertical eye movements to command monitor 12/27/15 locked in so he can hear all that is said family devoted and i expect peg+/-trach and they will see how he does next 6 months inr 2.4 doesnt always respond as will not awaken as quick as others Steven De Leon MD Dec 27, 2015 08:00
--- NOTE | 2015-12-27 08:38 | PD.ONC.PN ---
Subjective Subjective Remarks unresponsive to deep painful sternal rubs. family thinks that sometimes he open his eyes and follow commands briefly. Objective Data Date Time Temp Pulse Resp B/P Pulse Ox O2 Delivery O2 Flow Rate FiO2 12/27/15 08:25 100 35 12/27/15 06:00 75 12/27/15 04:29 15 12/27/15 04:00 100.1 83 15 132/76 100 12/27/15 04:00 35 12/27/15 04:00 83 12/27/15 03:48 98 35 12/27/15 02:00 80 12/27/15 00:55 97 35 12/27/15 00:00 99.7 83 15 132/73 100 12/27/15 00:00 83 12/27/15 00:00 35 12/26/15 22:00 85 12/26/15 21:55 99 35 12/26/15 20:00 83 12/26/15 20:00 35 12/26/15 20:00 100.4 14 140/86 98 12/26/15 19:38 100 35 12/26/15 18:00 85 12/26/15 16:15 98 35 12/26/15 16:00 89 12/26/15 16:00 40 12/26/15 16:00 99.9 89 14 138/81 100 12/26/15 14:00 79 12/26/15 13:00 96 40 12/26/15 12:00 100.2 79 17 121/74 100 12/26/15 12:00 40 12/26/15 12:00 79 12/26/15 11:25 100 35 12/26/15 10:44 99 35 12/26/15 10:44 35 12/26/15 10:15 40 12/26/15 10:00 89 12/27/15 12/27/15 12/27/15 07:00 15:00 23:00 Intake Total 549 ml Output Total 1000 ml Balance -451 ml Result Diagram: 12/27/15 0656 12/27/15 0656 Laboratory Results Laboratory Tests Test 12/27/15 06:56 White Blood Count 6.4 TH/MM3 Red Blood Count 4.37 MIL/MM3 Hemoglobin 11.7 GM/DL Hematocrit 36.6 % Mean Corpuscular Volume 83.6 FL Mean Corpuscular Hemoglobin 26.7 PG Mean Corpuscular Hemoglobin 32.0 % Concent Red Cell Distribution Width 14.2 % Platelet Count 149 TH/MM3 Mean Platelet Volume 8.9 FL Neutrophils (%) (Auto) 66.2 % Lymphocytes (%) (Auto) 17.7 % Monocytes (%) (Auto) 9.5 % Eosinophils (%) (Auto) 5.7 % Basophils (%) (Auto) 0.9 % Neutrophils # (Auto) 4.2 TH/MM3 Lymphocytes # (Auto) 1.1 TH/MM3 Monocytes # (Auto) 0.6 TH/MM3 Eosinophils # (Auto) 0.4 TH/MM3 Basophils # (Auto) 0.1 TH/MM3 CBC Comment DIFF FINAL Differential Comment Prothrombin Time 26.9 SEC Prothromb Time International 2.4 RATIO Ratio Sodium Level 133 MEQ/L Potassium Level 4.2 MEQ/L Chloride Level 98 MEQ/L Carbon Dioxide Level 29.6 MEQ/L Anion Gap 5 MEQ/L Blood Urea Nitrogen 18 MG/DL Creatinine 0.76 MG/DL Estimat Glomerular Filtration 105 ML/MIN Rate Random Glucose 186 MG/DL Calcium Level 8.8 MG/DL Magnesium Level 2.2 MG/DL Culture Results Microbiology Date/Time Procedure Status Source Growth 12/24/15 12:36 Gram Stain - Final Complete Sputum Endotracheal 12/24/15 12:36 Sputum Culture - Final Complete Sputum Endotracheal LIGHT GROWTH NORMAL RESPIRATORY ROSEMARIE 12/24/15 17:20 Aerobic Blood Culture - Preliminary Resulted Blood Peripheral NO GROWTH IN 2 DAYS 12/24/15 17:20 Anaerobic Blood Culture - Preliminary Resulted Blood Peripheral NO GROWTH IN 2 DAYS 12/24/15 17:29 Aerobic Blood Culture - Preliminary Resulted Blood Peripheral NO GROWTH IN 2 DAYS 12/24/15 17:29 Anaerobic Blood Culture - Preliminary Resulted Blood Peripheral NO GROWTH IN 2 DAYS Administered Medications Medications (Trade) Dose Ordered Sig/Junior Route PRN Reason Start Time Stop Time Status Last Admin Dose Admin IV Flush (NS Flush) 2 ml UNSCH PRN IVF FLUSH AFTER USING IV ACCESS 12/21/15 06:00 12/26/15 19:46 Propofol (Diprivan 1000 Mg/100ml Inj) search Sets for Drip. NOW PRN IV SEDATION 12/21/15 08:30 12/22/15 06:25 Pantoprazole Sodium (Protonix Inj) 40 mg DAILY IV 12/21/15 13:00 12/26/15 08:21 Miscellaneous Information 1 Q361D XX 12/21/15 13:00 12/21/15 13:00 Chlorhexidine Gluconate (Chlorhexidine 2% Cloth) Taper DAILY@04 TOP 12/22/15 04:00 12/17/16 03:59 12/26/15 02:00 Insulin Human Regular (NovoLIN R SUPPLEMENTAL SCALE) 1 Q6H SQ 12/21/15 13:00 12/27/15 06:31 Levetriacetam (Keppra) 500 mg Q12HR PO 12/21/15 13:45 12/26/15 20:46 Chlorhexidine Gluconate (Peridex 0.12% Liq) 15 ml BID@08,20 MT 12/22/15 20:00 12/26/15 19:46 Acetaminophen 650 mg 650 mg Q6H PRN PO TEMP > 100 12/23/15 02:45 12/27/15 03:29 Piperacillin Sod/ Tazobactam Sod 50 ml @ 100 mls/hr Q6H IV 12/23/15 10:00 12/27/15 03:29 Vancomycin HCl/ Sodium Chloride (Vancomycin Inj/ NS 250 ml Inj) 250 ml @ 250 mls/hr Q12H IV 12/24/15 08:45 12/26/15 20:47 Warfarin Sodium (Coumadin) 4 mg DAILY@16 PO 12/26/15 16:00 12/26/15 14:48 Objective Remarks GENERAL: Middle aged male, intubated. SKIN: Warm and dry. HEAD: Normocephalic. EYES: No injection or drainage. NECK: Supple, trachea midline. CARDIOVASCULAR: +S1/S2 RESPIRATORY: Breath sounds equal bilaterally. No accessory muscle use. on mechanical ventilation. GASTROINTESTINAL: Abdomen soft, EXTREMITIES: No cyanosis. SCD's, bilateral lower extremities. NEUROLOGICAL: unresponsive Assessment/Plan Problem List: (1) CVA (cerebral vascular accident) Status: Acute Plan: --neurology following, repeat MRI showed evolving acute infarction --on coumadin. INR is 2.4 today --MRI/MRA brain, 12/21: showed complete occlusion basilar system and both posterior cerebral arteries -- d/w DR De Leon. He states pt is lock in. He can hear but can not respond . -- RN noticed decerebrate posture. -- D/W family. -- PT will have trach and PEG (2) Non-Hodgkin lymphoma Status: Chronic Plan: --Brain mass status post biopsy on last admission, the pathology report is still pending. --pathology has been sent to [facility] for second opinion. --status post six cycles of Rituxan and CHOP chemotherapy completed last May. --no evidence of residual or recurrent disease on the October or November CT C/A/P Assessment 60y/o with h/o Non-Hodgkin's lymphoma. Admitted for acute CVA. Atrial fibrillation. Ed Whyte MD Dec 27, 2015 08:38
[2015-12-27] MEDS: levETIRAcetam 500 MG TAB PO SCH (09:00)
[2015-12-27] MEDS: PANTOPRAZOLE SODIUM 40 MG VIAL IV SCH (09:21)
[2015-12-27] MEDS: VANCOMYCIN INJ 1,000 MG in SODIUM CHLOR 0.9% 250 ML INJ 250 ML IV SCH ×2 (09:21→21:16)
--- NOTE | 2015-12-27 13:15 | HHI.STRCON ---
Stroke Care Coordination Conf GCS: 6 Current Abnormal Labs/Tests Laboratory Tests Test 12/27/15 06:56 Red Blood Count 4.37 MIL/MM3 (4.50-5.90) Hemoglobin 11.7 GM/DL (13.0-17.0) Hematocrit 36.6 % (39.0-51.0) Mean Corpuscular Hemoglobin 26.7 PG (27.0-34.0) Platelet Count 149 TH/MM3 (150-450) Monocytes (%) (Auto) 9.5 % (0.0-8.0) Eosinophils (%) (Auto) 5.7 % (0.0-4.0) Prothrombin Time 26.9 SEC (9.8-11.4) Sodium Level 133 MEQ/L (136-145) Random Glucose 186 MG/DL (74-106) Nursing Swallow Assessment: No Nutrition: Tube feeding (Glucerna 1.5 @ goal of 45ml/hr) PT: PROM OT ADL's: Other Assess for Rehab Services: Yes DC Plan/CM/SW Ins Concerns/Pay: TBD Recommendations made: Yes (Recommend OT Eval) Dg Amaro Dec 27, 2015 13:15
--- NOTE | 2015-12-27 14:51 | HHI.CCPN ---
Subjective Remarks/Hospital Course The patient is a 59-year-old male with past medical history of paroxysmal atrial fibrillation, hypertension, stage III a non-Hodgkin's lymphoma status post a chemotherapy last year. He received Rituxan CHOP. He presented to [facility] emergency department with altered mental status. Most of the history was obtained from reviewing medical records as the patient is poor historian. When he woke up of 4 o'clock this morning the patient had some right facial droop associated with headaches. Due to altered mental status CT scan of the brain was obtained which showed no focal or acute intracranial hemorrhage. However, there is an new area of decreased density in the left occipital lobe, suggestive of recent non hemorrhagic infarction and the decreased density in the previously noted right occipital lobe has increased in size. The patient was recently admitted back on December 06 with similar presentation and he had a right occipital juan jose hole brain biopsy by Dr. Marin on December 13. The pathology results pending. The patient became the patient noted to have very sonorous respirations and can and follow any commands in addition he was obtunded. He was subsequently intubated by the emergency department physician and MRI of the brain was obtained which showed a new area of restricted diffusion within the left occipital lobe suggesting acute infarction. No evidence of any acute hemorrhage, midline shift or a fluid collection. When seen the patient is sedated with Diprivan and on full mechanical ventilation. ABG post intubation showed a pH of 7.41, CO2 35, pAO2 100, bicarb of 22, saturation 93% on assist control ventilation rate of 14, tidal volume 550, PEEP five, FIO2 of 40%. Chest x-ray Post intubation showed ET tube above the geno in no acute cardiopulmonary process. His last echocardiogram was obtained in January of last year which showed an EF of 60% with no regional wall motion abnormalities. EKG on arrival showed A fib with RVR at rate of 114 beats per minute. The patient was given Cardizem 20 mg IV push in the emergency department and was initially placed on Cardizem drip. However, now is off. 12/21 No events overnight. Sedated with Diprivan and intubated. Afebrile. For MRA brain , carotids and MRV brain today . 12/22 Patient remains intubated, off sedation. T: 100.1 at midnight. 12/23 No events overnight. Remains off sedation. Had T: 101.3 at 4am. Withdraws to pain. 12/24 Patient remains intubated, on no sedation, T: 100.3 last night. For repeat MRI brain today 12/25 No events overnight. Tolerated CPAP for 4-5 hrs yesterday. T:100.1. 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 Subjective: 12/26 Tolerating CPAP. Temp max 100.1. Opens eyes to voice, reportedly has been blinking to command but isn't doing so currently even when family encouraging him. Objective - Vital Signs Date Time Temp Pulse Resp B/P Pulse Ox O2 Delivery O2 Flow Rate FiO2 12/27/15 14:36 77 12/27/15 14:32 35 12/27/15 11:44 100 12/27/15 08:00 99.3 16 117/77 12/25/15 01:20 Mechanical Ventilator I/O 12/26/15 12/26/15 12/27/15 08:00 16:00 00:00 Intake Total 625 ml 872 ml 694 ml Output Total 900.0 ml 700 ml 625 ml Balance -275.0 ml 172 ml 69 ml Result Diagram: 12/27/15 0656 12/27/15 0656 Other Results Laboratory Tests Test 12/26/15 03:51 White Blood Count 6.2 TH/MM3 Red Blood Count 4.54 MIL/MM3 Hemoglobin 12.0 GM/DL Hematocrit 37.7 % Mean Corpuscular Volume 83.0 FL Mean Corpuscular Hemoglobin 26.5 PG Mean Corpuscular Hemoglobin 31.9 % Concent Red Cell Distribution Width 14.3 % Platelet Count 142 TH/MM3 Mean Platelet Volume 9.4 FL Neutrophils (%) (Auto) 67.0 % Lymphocytes (%) (Auto) 16.7 % Monocytes (%) (Auto) 10.6 % Eosinophils (%) (Auto) 5.3 % Basophils (%) (Auto) 0.4 % Neutrophils # (Auto) 4.1 TH/MM3 Lymphocytes # (Auto) 1.0 TH/MM3 Monocytes # (Auto) 0.7 TH/MM3 Eosinophils # (Auto) 0.3 TH/MM3 Basophils # (Auto) 0.0 TH/MM3 CBC Comment DIFF FINAL Differential Comment Prothrombin Time 28.5 SEC Prothromb Time International 2.6 RATIO Ratio Sodium Level 133 MEQ/L Potassium Level 3.9 MEQ/L Chloride Level 97 MEQ/L Carbon Dioxide Level 27.1 MEQ/L Anion Gap 9 MEQ/L Blood Urea Nitrogen 17 MG/DL Creatinine 0.67 MG/DL Estimat Glomerular Filtration 121 ML/MIN Rate Random Glucose 175 MG/DL Calcium Level 8.3 MG/DL Magnesium Level 2.0 MG/DL Imaging Last Impressions Chest X-Ray 12/23/15 0000 Signed Impressions: Service Date/Time: Wednesday, December 23, 2015 08:32 - CONCLUSION: Left basilar opacity could be atelectasis or minimal infiltrate. Mikie Vargas MD Neck Magnetic Resonance Angiography 12/22/15 1445 Signed Impressions: Service Date/Time: Tuesday, December 22, 2015 09:22 - CONCLUSION: Variant origin of the left vertebral artery from the aortic arch. No evidence of carotid stenosis. Glen Zamora MD Head Magnetic Resonance Angiography 12/22/15 1445 Signed Impressions: Service Date/Time: Tuesday, December 22, 2015 09:22 - CONCLUSION: 1. 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 2. Anterior circulation remains patent without aneurysmal disease. Bobby Gray MD Brain MRI 12/22/15 1339 Signed Impressions: Service Date/Time: Tuesday, December 22, 2015 14:37 - CONCLUSION: Worsening brain appearance with abnormal signal developing in large portions of the brainstem. Glen Zamora MD ADDENDUM: Upon further review of images there is signal identified within the basilar artery consistent with thrombosis. Jonel Jones Jr., MD Head/Brain Mag Res Venography 12/22/15 0000 Signed Impressions: Service Date/Time: Tuesday, December 22, 2015 09:22 - CONCLUSION: Normal MRV. Jonel Jones Jr., MD Head CT 12/21/15 0546 Signed Impressions: Service Date/Time: December 06:01 - CONCLUSION: 1. No focal or acute intracranial hemorrhage. 2. There is a new area of decreased density in the left occipital lobe suggestive of a recent nonhemorrhagic infarction. 3. The decreased density in the previously noted right occipital lobe has increased in size. Michael Hamilton MD Objective Remarks Glucerna 1.5 at 45 L per hour. GENERAL: Well-nourished, well-developed patient who is orotracheally intubated. On no continuous sedation. SKIN: Warm and dry. HEAD: Normocephalic. EYES: No scleral icterus. No injection or drainage. NECK: Supple, trachea midline. No JVD or lymphadenopathy. Orally intubated CARDIOVASCULAR: Regular rate and rhythm without murmurs, gallops, or rubs, currently sinus on monitor. RESPIRATORY: Breath sounds equal bilaterally. No accessory muscle use. GASTROINTESTINAL: Abdomen soft, non-tender, nondistended. : Arevalo in place MUSCULOSKELETAL: No cyanosis, or edema. NEURO: Eyes open to voice. Shrugs shoulders in response to pain. +cough reflex, + spontaneous respirations. Babinski upgoing on L, no response to babinski on r. A/P Assessment and Plan IMPRESSION Basilar artery thrombosis with pontine, cerebellar, occipital Stroke Acute respiratory failure Stage III a non-Hodgkin's lymphoma status post chemotherapy last year Status post brain biopsy on December 13. Atrial fibrillation. Diabetes mellitus Hypertension Hyponatremia Plan Neuro: Off sedation. Monitor neuro status closely. Neuro: Dr. De Leon, on Keppra 500 mg b.i.d, changed to liquid. On warfarin for Afib and thrombosis per neuro. Repeat MRI brain 12/24: showed evolving acute infarction in both occipital lobes consistent with basilar thrombosis. EEG 12/20: Severe encephalopathy. 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 Anterior circulation remains patent without aneurysmal disease. Pulm: Continue with CPAP as tolerated. Mechanical ventilation 12/20 #7. Family would like to wait a little longer before deciding about trach/PEG as they are hopeful there is a chance he can improved enough to protect his airway. They would also like to see results of biopsy. Appears they would want trach, just would like longer to "be convinced that he needs it" CV: Atrial fibrillation ...Now in sinus rhythm. Monitor HR and BP keep MAP>65mmHg Echo from 12/07 showed an EF of 60% with no regional wall motion abnormalities. FEN/RENAL: Mild hyponatremia Monitor renal function Is and Os and electrolyte replacement per protocol. GI: On TF-Glucerna 1.5 with goal rate of 45 ml per hour. Change to Vital High protein at 60 mL per hour per nutrition recommendations. No BM for 7 days. Will start bowel regimen with colace/senna. Now had first BM today. ID: Fever ?secondary to stroke On empiric Zosyn 6/ #5 and vancomycin #4 6/8 CXR - opacity in left base appears most c/w atelectasis. No invasive lines. Will f/u CXR and sputum culture. Microbiology: out of 4 blood cultures with staph simulans (CoNS) 12/23 blood culture NGTD 12/23 - sputum NGTD 12/20 - U/a negative. Heme: Monitor CBC. Oncology-Dr. Whyte ,follow up on path results expected to be back today or tomorrow, was sent for second opinion. . s/p brain biopsy on December 13, by Dr. Marin. On warfarin 4 mg daily with INR therapeutic 2.4. Will need to be held with transition to heparin for trach. Endo: On low dose SSI with Accu-Chek q. 6-hour for glycemic control. TSH: 1.02 GI prophylaxis with Protonix 40 mg daily and DVT prophylaxis with SCDs, Coumadin started by neuro INR 2.6 today ACCESS: PIV Updated ex- and son at bedside. Questions answered. CCT 45 mins Fadia Orozco MD Dec 27, 2015 14:51
[2015-12-27] MEDS: WARFARIN SOD 4 MG TAB PO SCH (16:00)
[2015-12-27] MEDS: CHLORHEXIDINE 0.12% (ORAL KIT) 15 ML CUP MT SCH ×2 (17:43→21:16)
[2015-12-27] MEDS: SENNOSIDES SYRUP 8.8 MG/5 ML CUP TUBE SCH (17:47)
[2015-12-27] MEDS: levETIRAcetam 500 MG/5 ML UDC TUBE SCH (21:16)
[2015-12-27] MEDS: DOCUSATE SODIUM 100 MG/10 ML UDC TUBE SCH (21:16)
[2015-12-27] MEDS: RESP: ALBUTEROL 2.5 MG/IPRATROPIUM 0.5 MG NEB (PRN) NEB (22:40)
[2015-12-28] VITALS (18 sets, daily range): BP systolic 109–148; BP diastolic 68–87; PULSE 72–103; RESP 14–20; TEMP 99–101; O2SAT 98–100
[2015-12-28] MEDS: INSULIN NovoLIN REGULAR SUPPLEMENTAL SCALE SQ SCH ×4 (01:17→18:36)
[2015-12-28] MEDS: ACETAMINOPHEN 325 MG TAB PO PRN (01:18)
[2015-12-28] MEDS: CHLORHEXIDINE GLUCONATE 2 % 1 PACK (2 CLOTHS) TOP SCH (04:00)
[2015-12-28] MEDS: PIPERACIL-TAZO 3.375 GM PREMIX 50 ML IV SCH ×4 (04:44→21:24)
--- NOTE | 2015-12-28 05:25 | RADRPT ---
EXAM DATE/TIME: 12/28/2015 03:42 [place] COMPARISON: CHEST SINGLE AP, December 21, 2015, 7:46. CHEST SINGLE AP, December 23, 2015, 8:32. INDICATIONS : Shortness of breath, possible pulmonary disease. MEDICAL HISTORY : Hypertension. Diabetes mellitus type II. SURGICAL HISTORY : None. ENCOUNTER: Subsequent ACUITY: 1 week PAIN SCORE: Non-responsive. LOCATION: Bilateral chest FINDINGS: Portable AP view of the chest demonstrates a normal-sized cardiac silhouette. ETT and NG tube remain present. Lungs are underinflated and there are linear opacities at both lung bases most likely repres enting subsegmental atelectasis. No pleural effusion, airspace consolidation, or pneumothorax is visu alized. CONCLUSION: Stable chest x-ray under inflation and subsegmental atelectasis at the bases. Glen Gordon MD on December 28, 2015 at 5:22 Board Certified Radiologist. This report was verified electronically.
[2015-12-28 07:05] LABS: INTERNATIONAL NORMALIZED RATIO 2.5 RATIO; PROTHROMBIN TIME - PATIENT 27.2 SEC (9.8-11.4)
[2015-12-28] MEDS: VANCOMYCIN INJ 1,000 MG in SODIUM CHLOR 0.9% 250 ML INJ 250 ML IV SCH ×2 (08:48→21:00)
[2015-12-28] MEDS: DOCUSATE SODIUM 100 MG/10 ML UDC TUBE SCH ×2 (08:49→20:59)
[2015-12-28] MEDS: SENNOSIDES SYRUP 8.8 MG/5 ML CUP TUBE SCH (08:49)
[2015-12-28] MEDS: levETIRAcetam 500 MG/5 ML UDC TUBE SCH ×2 (08:49→20:59)
[2015-12-28] MEDS: PANTOPRAZOLE SODIUM 40 MG VIAL IV SCH (08:50)
[2015-12-28] MEDS: CHLORHEXIDINE 0.12% (ORAL KIT) 15 ML CUP MT SCH ×2 (08:50→21:00)
[2015-12-28 14:00] LABS: BACTERIA, URINE OCC /hpf; BLOOD, URINE SMALL (NEG); COMMENT (UR) CATH-CULTURE IND; CULTURE IF INDICATED CATH CULTURE IND; GLUCOSE,URINE NEG (NEG); KETONE, URINE NEG (NEG); NITRITE,URINE NEG (NEG); URINE COLOR YELLOW (YELLW/STRAW)
--- NOTE | 2015-12-28 14:18 | PD.ONC.PN ---
Subjective Subjective Remarks unresponsive, off of sedation x several days. Objective Data Date Time Temp Pulse Resp B/P Pulse Ox O2 Delivery O2 Flow Rate FiO2 12/28/15 12:30 103 12/28/15 12:15 99.7 77 14 109/73 100 12/28/15 12:15 35 12/28/15 11:46 99 35 12/28/15 10:02 82 12/28/15 08:20 35 12/28/15 08:20 99.0 75 16 130/83 100 12/28/15 07:00 72 12/28/15 06:00 75 12/28/15 04:00 35 12/28/15 04:00 100.3 84 17 148/87 99 12/28/15 04:00 84 12/28/15 03:42 100 35 12/28/15 02:00 86 12/28/15 00:27 99 35 12/28/15 00:00 101.0 93 20 130/78 98 12/28/15 00:00 35 12/28/15 00:00 93 12/27/15 22:00 93 12/27/15 20:00 35 12/27/15 20:00 92 12/27/15 20:00 100.3 90 17 125/77 100 12/27/15 19:19 100 35 12/27/15 18:00 78 12/27/15 16:09 98 35 12/27/15 16:00 72 12/27/15 16:00 99.1 89 18 132/82 100 12/27/15 16:00 70 12/27/15 16:00 35 12/27/15 14:36 77 12/27/15 14:32 35 12/28/15 12/28/15 12/28/15 07:00 15:00 23:00 Intake Total 574 ml Output Total 450 ml Balance 124 ml Result Diagram: 12/27/15 0656 12/27/15 0656 Laboratory Results Laboratory Tests Test 12/28/15 12/28/15 05:39 12:00 Prothrombin Time 27.2 SEC Prothromb Time International 2.5 RATIO Ratio Urine Color YELLOW Urine Turbidity CLEAR Urine pH 6.0 Urine Specific [place] 1.028 Urine Protein TRACE mg/dL Urine Glucose (UA) NEG mg/dL Urine Ketones NEG mg/dL Urine Occult Blood SMALL Urine Nitrite NEG Urine Bilirubin NEG Urine Urobilinogen 2.0 MG/DL Urine Leukocyte Esterase NEG Urine RBC 24 /hpf Urine WBC 2 /hpf Urine Bacteria OCC /hpf Microscopic Urinalysis Comment CATH-CULTURE IND Culture Results Microbiology Date/Time Procedure Status Source Growth 12/28/15 12:00 Urine Culture Received Urine Catheterized Urine Pending 12/28/15 12:33 Gram Stain Received Sputum Endotracheal Pending 12/28/15 12:33 Sputum Culture Received Sputum Endotracheal Pending Imaging Studies Last 24 hours Impressions Chest X-Ray 12/28/15 0600 Signed Impressions: Service Date/Time: December 03:42 - CONCLUSION: Stable chest x-ray under inflation and subsegmental atelectasis at the bases. Glen Gordon MD Administered Medications Medications (Trade) Dose Ordered Sig/Junior Route PRN Reason Start Time Stop Time Status Last Admin Dose Admin IV Flush (NS Flush) 2 ml UNSCH PRN IVF FLUSH AFTER USING IV ACCESS 12/21/15 06:00 12/26/15 19:46 Propofol (Diprivan 1000 Mg/100ml Inj) search Sets for Drip. NOW PRN IV SEDATION 12/21/15 08:30 12/22/15 06:25 Pantoprazole Sodium (Protonix Inj) 40 mg DAILY IV 12/21/15 13:00 12/28/15 08:50 Miscellaneous Information 1 Q361D XX 12/21/15 13:00 12/21/15 13:00 Chlorhexidine Gluconate (Chlorhexidine 2% Cloth) Taper DAILY@04 TOP 12/22/15 04:00 12/17/16 03:59 12/28/15 04:00 Insulin Human Regular (NovoLIN R SUPPLEMENTAL SCALE) 1 Q6H SQ 12/21/15 13:00 12/28/15 12:33 Chlorhexidine Gluconate (Peridex 0.12% Liq) 15 ml BID@08,20 MT 12/22/15 20:00 12/28/15 08:50 Acetaminophen 650 mg 650 mg Q6H PRN PO TEMP > 100 12/23/15 02:45 12/28/15 01:18 Piperacillin Sod/ Tazobactam Sod 50 ml @ 100 mls/hr Q6H IV 12/23/15 10:00 12/28/15 10:14 Vancomycin HCl/ Sodium Chloride (Vancomycin Inj/ NS 250 ml Inj) 250 ml @ 250 mls/hr Q12H IV 12/24/15 08:45 12/28/15 08:48 Warfarin Sodium (Coumadin) 4 mg DAILY@16 PO 12/26/15 16:00 12/27/15 16:00 Levetriacetam (Keppra Liq) 500 mg Q12HR TUBE 12/27/15 21:00 12/28/15 08:49 Docusate Sodium (Colace Liq) 100 mg Q12HR TUBE 12/27/15 21:00 12/28/15 08:49 Sennosides (Senna Liq) 8.8 mg DAILY TUBE 12/27/15 17:00 12/28/15 08:49 Objective Remarks GENERAL: Middle aged male, intubated. SKIN: Warm and dry. HEAD: Normocephalic. EYES: No injection or drainage. NECK: Supple, trachea midline. CARDIOVASCULAR: +S1/S2 RESPIRATORY: Breath sounds equal bilaterally. No accessory muscle use. on mechanical ventilation. GASTROINTESTINAL: Abdomen soft, EXTREMITIES: No cyanosis. SCD's, bilateral lower extremities. NEUROLOGICAL: unresponsive Assessment/Plan Problem List: (1) CVA (cerebral vascular accident) Status: Acute Plan: --neurology following, repeat MRI showed evolving acute infarction --on coumadin 4 mg daily . INR is 2.5 today . --MRI/MRA brain, 12/21: showed complete occlusion basilar system and both posterior cerebral arteries -- d/w DR De Leon. He states pt is lock in. He can hear but can not respond . -- RN noticed decerebrate posture. -- D/W family. -- PT will have trach and PEG after the brain bx report. (2) Non-Hodgkin lymphoma Status: Chronic Plan: --Brain mass status post biopsy on last admission, the pathology report is still pending as of . --pathology has been sent to [facility] for second opinion. --status post six cycles of Rituxan and CHOP chemotherapy completed last May. --no evidence of residual or recurrent disease on the October or November CT C/A/P Assessment 60y/o with h/o Non-Hodgkin's lymphoma. Admitted for acute CVA. Atrial fibrillation. Ed Whyte MD Dec 28, 2015 14:18
[2015-12-28] MEDS: WARFARIN SOD 4 MG TAB PO SCH (16:00)
--- NOTE | 2015-12-28 19:41 | HHI.CCPN ---
Subjective Remarks/Hospital Course The patient is a 59-year-old male with past medical history of paroxysmal atrial fibrillation, hypertension, stage III a non-Hodgkin's lymphoma status post a chemotherapy last year. He received Rituxan CHOP. He presented to [facility] emergency department with altered mental status. Most of the history was obtained from reviewing medical records as the patient is poor historian. When he woke up of 4 o'clock this morning the patient had some right facial droop associated with headaches. Due to altered mental status CT scan of the brain was obtained which showed no focal or acute intracranial hemorrhage. However, there is an new area of decreased density in the left occipital lobe, suggestive of recent non hemorrhagic infarction and the decreased density in the previously noted right occipital lobe has increased in size. The patient was recently admitted back on December 06 with similar presentation and he had a right occipital juan jose hole brain biopsy by Dr. Marin on December 13. The pathology results pending. The patient became the patient noted to have very sonorous respirations and can and follow any commands in addition he was obtunded. He was subsequently intubated by the emergency department physician and MRI of the brain was obtained which showed a new area of restricted diffusion within the left occipital lobe suggesting acute infarction. No evidence of any acute hemorrhage, midline shift or a fluid collection. When seen the patient is sedated with Diprivan and on full mechanical ventilation. ABG post intubation showed a pH of 7.41, CO2 35, pAO2 100, bicarb of 22, saturation 93% on assist control ventilation rate of 14, tidal volume 550, PEEP five, FIO2 of 40%. Chest x-ray Post intubation showed ET tube above the geno in no acute cardiopulmonary process. His last echocardiogram was obtained in January of last year which showed an EF of 60% with no regional wall motion abnormalities. EKG on arrival showed A fib with RVR at rate of 114 beats per minute. The patient was given Cardizem 20 mg IV push in the emergency department and was initially placed on Cardizem drip. However, now is off. 12/21 No events overnight. Sedated with Diprivan and intubated. Afebrile. For MRA brain , carotids and MRV brain today . 12/22 Patient remains intubated, off sedation. T: 100.1 at midnight. 12/23 No events overnight. Remains off sedation. Had T: 101.3 at 4am. Withdraws to pain. 12/24 Patient remains intubated, on no sedation, T: 100.3 last night. For repeat MRI brain today 12/25 No events overnight. Tolerated CPAP for 4-5 hrs yesterday. T:100.1. 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 12/26 Tolerating CPAP. Temp max 100.1. Opens eyes to voice, reportedly has been blinking to command but isn't doing so currently even when family encouraging him. Subjective: 12/27 Continues to tolerate CPAP. Follows commands via ocular movements. Weak withdraw LUE noxious stimuli. Biopsy brain lesion appears c/w acute infarct, no lymphoma. Objective - Vital Signs Date Time Temp Pulse Resp B/P Pulse Ox O2 Delivery O2 Flow Rate FiO2 12/28/15 16:08 100 35 12/28/15 16:00 79 12/28/15 16:00 99.3 16 112/68 12/25/15 01:20 Mechanical Ventilator I/O 12/27/15 12/27/15 12/28/15 08:00 16:00 00:00 Intake Total 549 ml 755 ml 973 ml Output Total 1000.0 ml 1200 ml 475 ml Balance -451.0 ml -445 ml 498 ml Result Diagram: 12/27/15 0656 12/27/15 0656 Other Results Laboratory Tests Test 12/26/15 03:51 White Blood Count 6.2 TH/MM3 Red Blood Count 4.54 MIL/MM3 Hemoglobin 12.0 GM/DL Hematocrit 37.7 % Mean Corpuscular Volume 83.0 FL Mean Corpuscular Hemoglobin 26.5 PG Mean Corpuscular Hemoglobin 31.9 % Concent Red Cell Distribution Width 14.3 % Platelet Count 142 TH/MM3 Mean Platelet Volume 9.4 FL Neutrophils (%) (Auto) 67.0 % Lymphocytes (%) (Auto) 16.7 % Monocytes (%) (Auto) 10.6 % Eosinophils (%) (Auto) 5.3 % Basophils (%) (Auto) 0.4 % Neutrophils # (Auto) 4.1 TH/MM3 Lymphocytes # (Auto) 1.0 TH/MM3 Monocytes # (Auto) 0.7 TH/MM3 Eosinophils # (Auto) 0.3 TH/MM3 Basophils # (Auto) 0.0 TH/MM3 CBC Comment DIFF FINAL Differential Comment Prothrombin Time 28.5 SEC Prothromb Time International 2.6 RATIO Ratio Sodium Level 133 MEQ/L Potassium Level 3.9 MEQ/L Chloride Level 97 MEQ/L Carbon Dioxide Level 27.1 MEQ/L Anion Gap 9 MEQ/L Blood Urea Nitrogen 17 MG/DL Creatinine 0.67 MG/DL Estimat Glomerular Filtration 121 ML/MIN Rate Random Glucose 175 MG/DL Calcium Level 8.3 MG/DL Magnesium Level 2.0 MG/DL Imaging Last Impressions Chest X-Ray 12/23/15 0000 Signed Impressions: Service Date/Time: Wednesday, December 23, 2015 08:32 - CONCLUSION: Left basilar opacity could be atelectasis or minimal infiltrate. Mikie Vargas MD Neck Magnetic Resonance Angiography 12/22/15 1445 Signed Impressions: Service Date/Time: Tuesday, December 22, 2015 09:22 - CONCLUSION: Variant origin of the left vertebral artery from the aortic arch. No evidence of carotid stenosis. Glen Zamora MD Head Magnetic Resonance Angiography 12/22/15 1445 Signed Impressions: Service Date/Time: Tuesday, December 22, 2015 09:22 - CONCLUSION: 1. 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 2. Anterior circulation remains patent without aneurysmal disease. Bobby Gray MD Brain MRI 12/22/15 1339 Signed Impressions: Service Date/Time: Tuesday, December 22, 2015 14:37 - CONCLUSION: Worsening brain appearance with abnormal signal developing in large portions of the brainstem. Glen Zamora MD ADDENDUM: Upon further review of images there is signal identified within the basilar artery consistent with thrombosis. Jonel Jones Jr., MD Head/Brain Mag Res Venography 12/22/15 0000 Signed Impressions: Service Date/Time: Tuesday, December 22, 2015 09:22 - CONCLUSION: Normal MRV. Jonel Jones Jr., MD Head CT 12/21/15 0546 Signed Impressions: Service Date/Time: December 06:01 - CONCLUSION: 1. No focal or acute intracranial hemorrhage. 2. There is a new area of decreased density in the left occipital lobe suggestive of a recent nonhemorrhagic infarction. 3. The decreased density in the previously noted right occipital lobe has increased in size. Michael Hamilton MD Objective Remarks Glucerna 1.5 at 45 L per hour. GENERAL: Well-nourished, well-developed patient who is orotracheally intubated. On no continuous sedation. SKIN: Warm and dry. HEAD: Normocephalic. EYES: No scleral icterus. No injection or drainage. NECK: Supple, trachea midline. No JVD or lymphadenopathy. Orally intubated CARDIOVASCULAR: Regular rate and rhythm without murmurs, gallops, or rubs, currently sinus on monitor. RESPIRATORY: Breath sounds equal bilaterally. No accessory muscle use. GASTROINTESTINAL: Abdomen soft, non-tender, nondistended. : Arevalo in place. MUSCULOSKELETAL: No cyanosis, or edema. NEURO: Eyes open to voice and he looks up and down and to the left to command. ? R gaze palsy. Weakly Withdraws LUE to noxious stimuli+cough reflex, + spontaneous respirations. Babinski upgoing on L, no response to babinski on r. A/P Assessment and Plan IMPRESSION Basilar artery thrombosis with pontine, cerebellar, occipital Stroke Acute respiratory failure Stage III a non-Hodgkin's lymphoma status post chemotherapy last year Status post brain biopsy on December 13. Atrial fibrillation. Diabetes mellitus Hypertension Hyponatremia Plan Neuro: Off sedation. Monitor neuro status closely. Neuro: Dr. De Leon, on Keppra 500 mg b.i.d, changed to liquid. On warfarin for Afib and thrombosis per neuro. Would favor holding warfarin and transition to heparin when INR drops <2 as appears patient will need trach and family plans to consent. Will coordinate with neurology. Repeat MRI brain 12/24: showed evolving acute infarction in both occipital lobes consistent with basilar thrombosis. EEG 12/20: Severe encephalopathy. 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 Anterior circulation remains patent without aneurysmal disease. Pulm: Continue with CPAP as tolerated. Mechanical ventilation 12/20 #8. Family initially indicated they would like to wait a little longer before deciding about trach/PEG as they are hopeful there is a chance he can improved enough to protect his airway. However, their goals appear aggressive overall and as such it appears it is in this patients best interest to proceed with trach as it does not appear he would protect his airway. I have discussed this with them. CV: Atrial fibrillation ...Now in sinus rhythm. Monitor HR and BP keep MAP>65mmHg Echo from 12/07 showed an EF of 60% with no regional wall motion abnormalities. FEN/RENAL: Mild hyponatremia Monitor renal function Is and Os and electrolyte replacement per protocol. sodium chloride 1 gram per tube bid. followup sodium. GI: On TF-Vital High protein at 60 mL per hour per nutrition recommendations. No BM for 7 days. continue bowel regimen with colace/senna. Add dulcolax pr today. Add lactulose ID: Fever ?secondary to stroke On empiric Zosyn 12/22 #6 and vancomycin #5 Continue to monitor. No rash. 12/26 CXR - opacity in left base appears most c/w atelectasis. No invasive lines. Microbiology: out of 4 blood cultures with staph simulans (CoNS) 12/23 blood culture NGTD 12/23 - sputum NGTD 12/20 - U/a negative. Heme: Monitor CBC. Oncology-Dr. Whyte Pathology c/w acute infarct without e/o lymphoma. s/p brain biopsy on December 13, by Dr. Marin. On warfarin 4 mg daily with INR therapeutic 2.4. Will need to be held with transition to heparin for trach. Endo: On low dose SSI with Accu-Chek q. 6-hour for glycemic control. TSH: 1.02 GI prophylaxis with Protonix 40 mg daily and DVT prophylaxis with SCDs, Coumadin started by neuro INR therapeutic today ACCESS: PIV Updated ex- , son, daughter and in-laws at bedside. Multiple Questions answered. CCT 50 mins exclusive of separately billable procedures. Fadia Orozco MD Dec 28, 2015 19:41
[2015-12-28] MEDS: LACTULOSE SYRUP 20 GM/30 ML CUP TUBE SCH (21:24)
[2015-12-28] MEDS: SODIUM CHLORIDE 1 GRAM TAB TUBE SCH (21:24)
[2015-12-29] VITALS (20 sets, daily range): BP systolic 124–153; BP diastolic 70–85; PULSE 78–90; RESP 16; TEMP 98.8–99.8; O2SAT 98–100
[2015-12-29] MEDS: INSULIN NovoLIN REGULAR SUPPLEMENTAL SCALE SQ SCH ×5 (01:26→23:33)
[2015-12-29] MEDS: CHLORHEXIDINE GLUCONATE 2 % 1 PACK (2 CLOTHS) TOP SCH ×2 (03:58→19:20)
[2015-12-29] MEDS: PIPERACIL-TAZO 3.375 GM PREMIX 50 ML IV SCH ×4 (03:58→20:11)
[2015-12-29 04:47] LABS: AUTOMATED NEUTROPHIL # 4.3 TH/MM3 (1.8-7.7); BASOPHIL # 0.1 TH/MM3 (0-0.2); EOSINOPHIL # 0.3 TH/MM3 (0-0.4); EOSINOPHIL % 5.2 % (0.0-4.0); HEMATOCRIT 35.2 % (39.0-51.0); HEMO FLAGS DIFF FINAL; LYMPH % 15.9 % (9.0-44.0); MEAN CELL VOLUME 83.3 FL (80.0-100.0); MEAN CORPUSCULAR HEMOGLOBIN 26.8 PG (27.0-34.0); MEAN CORPUSCULAR HGB CONC 32.2 % (32.0-36.0); MONO % 7.7 % (0.0-8.0); NEUT % 70.2 % (16.0-70.0); PLATELET COUNT 165 TH/MM3 (150-450); RED BLOOD COUNT 4.22 MIL/MM3 (4.50-5.90); RED CELL DISTRIBUTION WIDTH 14.3 % (11.6-17.2); WHITE BLOOD COUNT 6.1 TH/MM3 (4.0-11.0)
[2015-12-29 04:55] LABS: INTERNATIONAL NORMALIZED RATIO 2.8 RATIO; PROTHROMBIN TIME - PATIENT 31.5 SEC (9.8-11.4)
[2015-12-29 05:12] LABS: BICARBONATE 26.9 MEQ/L (21.0-32.0); POTASSIUM 3.9 MEQ/L (3.5-5.1)
[2015-12-29] MEDS: VANCOMYCIN INJ 1,000 MG in SODIUM CHLOR 0.9% 250 ML INJ 250 ML IV SCH (09:01)
[2015-12-29] MEDS: levETIRAcetam 500 MG/5 ML UDC TUBE SCH ×2 (09:02→20:11)
[2015-12-29] MEDS: CHLORHEXIDINE 0.12% (ORAL KIT) 15 ML CUP MT SCH ×2 (09:02→20:11)
[2015-12-29] MEDS: DOCUSATE SODIUM 100 MG/10 ML UDC TUBE SCH ×2 (09:02→20:11)
[2015-12-29] MEDS: PANTOPRAZOLE SODIUM 40 MG VIAL IV SCH (09:02)
[2015-12-29] MEDS: SENNOSIDES SYRUP 8.8 MG/5 ML CUP TUBE SCH (09:02)
[2015-12-29] MEDS: LACTULOSE SYRUP 20 GM/30 ML CUP TUBE SCH (09:02)
[2015-12-29] MEDS: SODIUM CHLORIDE 1 GRAM TAB TUBE SCH (09:02)
--- NOTE | 2015-12-29 10:44 | PD.ONC.PN ---
Subjective Subjective Remarks off of sedation, remains on vent with CPAP unresponsive Objective Data Date Time Temp Pulse Resp B/P Pulse Ox O2 Delivery O2 Flow Rate FiO2 12/29/15 10:19 99 35 12/29/15 08:00 35 12/29/15 06:00 82 12/29/15 04:15 100 35 12/29/15 04:00 81 12/29/15 04:00 35 12/29/15 04:00 99.7 81 16 153/85 100 12/29/15 02:00 85 12/29/15 01:39 100 35 12/29/15 00:00 99.8 83 16 138/82 99 12/29/15 00:00 35 12/29/15 00:00 83 12/28/15 22:00 82 12/28/15 20:19 100 35 12/28/15 20:00 86 12/28/15 20:00 99.1 86 18 134/81 99 12/28/15 20:00 35 12/28/15 16:08 100 35 12/28/15 16:00 79 12/28/15 16:00 99.3 77 16 112/68 100 12/28/15 16:00 35 12/28/15 14:00 78 12/28/15 12:30 103 12/28/15 12:15 99.7 77 14 109/73 100 12/28/15 12:15 35 12/28/15 11:46 99 35 12/29/15 12/29/15 12/29/15 07:00 15:00 23:00 Intake Total 806 ml Output Total 500 ml Balance 306 ml Result Diagram: 12/29/15 0415 12/29/15 0415 Laboratory Results Laboratory Tests Test 12/28/15 12/29/15 12:00 04:15 Urine Color YELLOW Urine Turbidity CLEAR Urine pH 6.0 Urine Specific [place] 1.028 Urine Protein TRACE mg/dL Urine Glucose (UA) NEG mg/dL Urine Ketones NEG mg/dL Urine Occult Blood SMALL Urine Nitrite NEG Urine Bilirubin NEG Urine Urobilinogen 2.0 MG/DL Urine Leukocyte Esterase NEG Urine RBC 24 /hpf Urine WBC 2 /hpf Urine Bacteria OCC /hpf Microscopic Urinalysis Comment CATH-CULTURE IND White Blood Count 6.1 TH/MM3 Red Blood Count 4.22 MIL/MM3 Hemoglobin 11.3 GM/DL Hematocrit 35.2 % Mean Corpuscular Volume 83.3 FL Mean Corpuscular Hemoglobin 26.8 PG Mean Corpuscular Hemoglobin 32.2 % Concent Red Cell Distribution Width 14.3 % Platelet Count 165 TH/MM3 Mean Platelet Volume 8.9 FL Neutrophils (%) (Auto) 70.2 % Lymphocytes (%) (Auto) 15.9 % Monocytes (%) (Auto) 7.7 % Eosinophils (%) (Auto) 5.2 % Basophils (%) (Auto) 1.0 % Neutrophils # (Auto) 4.3 TH/MM3 Lymphocytes # (Auto) 1.0 TH/MM3 Monocytes # (Auto) 0.5 TH/MM3 Eosinophils # (Auto) 0.3 TH/MM3 Basophils # (Auto) 0.1 TH/MM3 CBC Comment DIFF FINAL Differential Comment Prothrombin Time 31.5 SEC Prothromb Time International 2.8 RATIO Ratio Sodium Level 136 MEQ/L Potassium Level 3.9 MEQ/L Chloride Level 101 MEQ/L Carbon Dioxide Level 26.9 MEQ/L Anion Gap 8 MEQ/L Blood Urea Nitrogen 20 MG/DL Creatinine 0.71 MG/DL Estimat Glomerular Filtration 113 ML/MIN Rate Random Glucose 198 MG/DL Calcium Level 8.7 MG/DL Culture Results Microbiology Date/Time Procedure Status Source Growth 12/28/15 12:00 Urine Culture Received Urine Catheterized Urine Pending 12/28/15 12:33 Gram Stain - Final Resulted Sputum Endotracheal 12/28/15 12:33 Sputum Culture Resulted Sputum Endotracheal Pending 12/28/15 14:30 Aerobic Blood Culture Received Blood Peripheral Pending 12/28/15 14:30 Anaerobic Blood Culture Received Blood Peripheral Pending 12/28/15 14:36 Aerobic Blood Culture Received Blood Peripheral Pending 12/28/15 14:36 Anaerobic Blood Culture Received Blood Peripheral Pending Administered Medications Medications (Trade) Dose Ordered Sig/Junior Route PRN Reason Start Time Stop Time Status Last Admin Dose Admin IV Flush (NS Flush) 2 ml UNSCH PRN IVF FLUSH AFTER USING IV ACCESS 12/21/15 06:00 12/26/15 19:46 Propofol (Diprivan 1000 Mg/100ml Inj) search Sets for Drip. NOW PRN IV SEDATION 12/21/15 08:30 12/22/15 06:25 Pantoprazole Sodium (Protonix Inj) 40 mg DAILY IV 6/2/16 13:00 12/29/15 09:02 Miscellaneous Information 1 [id number] XX 12/21/15 13:00 12/21/15 13:00 Chlorhexidine Gluconate (Chlorhexidine 2% Cloth) Taper DAILY@04 TOP 12/22/15 04:00 12/17/16 03:59 12/29/15 03:58 Insulin Human Regular (NovoLIN R SUPPLEMENTAL SCALE) 1 Q6H SQ 12/21/15 13:00 12/29/15 06:16 Chlorhexidine Gluconate (Peridex 0.12% Liq) 15 ml BID@08,20 MT 12/22/15 20:00 12/29/15 09:02 Acetaminophen 650 mg 650 mg Q6H PRN PO TEMP > 100 12/23/15 02:45 12/28/15 01:18 Piperacillin Sod/ Tazobactam Sod 50 ml @ 100 mls/hr Q6H IV 12/23/15 10:00 12/29/15 09:02 Vancomycin HCl/ Sodium Chloride (Vancomycin Inj/ NS 250 ml Inj) 250 ml @ 250 mls/hr Q12H IV 12/24/15 08:45 12/29/15 09:01 Warfarin Sodium (Coumadin) 4 mg DAILY@16 PO 12/26/15 16:00 Hold 12/28/15 16:00 Levetriacetam (Keppra Liq) 500 mg Q12HR TUBE 12/27/15 21:00 12/29/15 09:02 Docusate Sodium (Colace Liq) 100 mg Q12HR TUBE 12/27/15 21:00 12/29/15 09:02 Sennosides (Senna Liq) 8.8 mg DAILY TUBE 12/27/15 17:00 12/29/15 09:02 Sodium Chloride (Sodium Chloride) 1 gm BID TUBE 12/28/15 21:00 12/29/15 09:02 Lactulose (Lactulose Liq) 30 ml DAILY TUBE 12/28/15 20:30 12/29/15 09:02 Objective Remarks GENERAL: Middle aged male, intubated. SKIN: Warm and dry. HEAD: Normocephalic. EYES: No injection or drainage. NECK: Supple, trachea midline. CARDIOVASCULAR: +S1/S2 RESPIRATORY: Breath sounds equal bilaterally. No accessory muscle use. on mechanical ventilation. GASTROINTESTINAL: Abdomen soft, EXTREMITIES: No cyanosis. SCD's, bilateral lower extremities. NEUROLOGICAL: unresponsive Assessment/Plan Problem List: (1) CVA (cerebral vascular accident) Status: Acute Plan: --neurology following, repeat MRI showed evolving acute infarction --on coumadin 4 mg daily . INR is 2.8 today . --MRI/MRA brain, 12/21: showed complete occlusion basilar system and both posterior cerebral arteries -- d/w DR De Leon. He states pt is locked in. He can hear but can not respond . -- RN noticed decerebrate posture. -- PT will have trach and PEG . D/w Dr Orozco ( benefits specialist) . she wants to hold the coumadin and start Lovenox once INR goes below 2.0. anticoagulation needs to be held for the procedures. -- Brain Bx = subacute infarct. d/w Ex- yesterday over the phone. (2) Non-Hodgkin lymphoma Status: Chronic Plan: --Brain mass status post biopsy on last admission, --status post six cycles of Rituxan and CHOP chemotherapy completed last May. --no evidence of residual or recurrent disease on the October or November CT C/A/P -- Brain Bx = subacute infarct. d/w Ex- yesterday over the phone. NO evidence of lymphoma or any malignancy. 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 we gave her the copy. -- D/W RN and Dr Orozco today. -- I am signing off as pt does not have any evidence of cancer. He has CVA which is managed by neurology and primary team. -- available prn Assessment 60y/o with h/o Non-Hodgkin's lymphoma. Admitted for acute CVA. Atrial fibrillation. Ed Whyte MD Dec 29, 2015 10:44
[2015-12-29] MEDS: RESP: ALBUTEROL 2.5 MG/IPRATROPIUM 0.5 MG NEB (PRN) NEB (12:17)
--- NOTE | 2015-12-29 15:09 | RADRPT ---
EXAM DATE/TIME: 12/29/2015 13:35 [facility] COMPARISON: MRI BRAIN W/O CONTRAST, December 22, 2015, 14:37. MRI BRAIN W/O CONTRAST, December 25, 2015, 10:40. INDICATIONS : Change in mentation. Lethargy. MEDICAL HISTORY : Diabetes mellitus type 2. Lymphoma. Hypertension. SURGICAL HISTORY : Brain Biopsy. ENCOUNTER: Subsequent ACUITY: 2 months PAIN SCORE: Nonresponsive. LOCATION: cranial TECHNIQUE: Multiplanar, multisequence MRI of the brain was performed without contrast. FINDINGS: There are infarcts involving the brain stem, the right occipital region and the left parietal occipit al region. These are relatively stable in the interval. There is no parenchymal hemorrhage. Ventricular size appears appropriate. The left ventricle is not significantly compressed. There are no extra axial fluid collections appreciated. CONCLUSION: Stable MRI showing a large brain stem infarct and bilateral occipital infarcts from a basilar artery thrombosis. Octavio Ramírez MD FACR on December 29, 2015 at 14:55 Board Certified Radiologist. This report was verified electronically.
--- NOTE | 2015-12-29 15:54 | HHI.CCPN ---
Subjective Remarks/Hospital Course The patient is a 59-year-old male with past medical history of paroxysmal atrial fibrillation, hypertension, stage III a non-Hodgkin's lymphoma status post a chemotherapy last year. He received Rituxan CHOP. He presented to [facility] emergency department with altered mental status. Most of the history was obtained from reviewing medical records as the patient is poor historian. When he woke up of 4 o'clock this morning the patient had some right facial droop associated with headaches. Due to altered mental status CT scan of the brain was obtained which showed no focal or acute intracranial hemorrhage. However, there is an new area of decreased density in the left occipital lobe, suggestive of recent non hemorrhagic infarction and the decreased density in the previously noted right occipital lobe has increased in size. The patient was recently admitted back on December 06 with similar presentation and he had a right occipital juan jose hole brain biopsy by Dr. Marin on December 13. The pathology results pending. The patient became the patient noted to have very sonorous respirations and can and follow any commands in addition he was obtunded. He was subsequently intubated by the emergency department physician and MRI of the brain was obtained which showed a new area of restricted diffusion within the left occipital lobe suggesting acute infarction. No evidence of any acute hemorrhage, midline shift or a fluid collection. When seen the patient is sedated with Diprivan and on full mechanical ventilation. ABG post intubation showed a pH of 7.41, CO2 35, pAO2 100, bicarb of 22, saturation 93% on assist control ventilation rate of 14, tidal volume 550, PEEP five, FIO2 of 40%. Chest x-ray Post intubation showed ET tube above the geno in no acute cardiopulmonary process. His last echocardiogram was obtained in January of last year which showed an EF of 60% with no regional wall motion abnormalities. EKG on arrival showed A fib with RVR at rate of 114 beats per minute. The patient was given Cardizem 20 mg IV push in the emergency department and was initially placed on Cardizem drip. However, now is off. 12/21 No events overnight. Sedated with Diprivan and intubated. Afebrile. For MRA brain , carotids and MRV brain today . 12/22 Patient remains intubated, off sedation. T: 100.1 at midnight. 12/23 No events overnight. Remains off sedation. Had T: 101.3 at 4am. Withdraws to pain. 12/24 Patient remains intubated, on no sedation, T: 100.3 last night. For repeat MRI brain today 12/25 No events overnight. Tolerated CPAP for 4-5 hrs yesterday. T:100.1. 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 12/26 Tolerating CPAP. Temp max 100.1. Opens eyes to voice, reportedly has been blinking to command but isn't doing so currently even when family encouraging him. 12/27 Continues to tolerate CPAP. Follows commands via ocular movements. Weak withdraw LUE noxious stimuli. Biopsy brain lesion appears c/w acute infarct, no lymphoma. Subjective: 12/28 Tolerating CPAP 04/24. Family desires trach and warfarin placed on hold. MRI today per neurology. GNR in sputum. Objective - Vital Signs Date Time Temp Pulse Resp B/P Pulse Ox O2 Delivery O2 Flow Rate FiO2 12/29/15 14:02 99 100 12/29/15 14:00 80 12/29/15 08:00 98.9 16 124/70 I/O 12/28/15 12/28/15 12/29/15 08:00 16:00 00:00 Intake Total 574 ml 1032 ml 672 ml Output Total 450 ml 625 ml 400 ml Balance 124 ml 407 ml 272 ml Result Diagram: 12/29/15 0415 12/29/15 0415 Other Results Laboratory Tests Test 12/26/15 03:51 White Blood Count 6.2 TH/MM3 Red Blood Count 4.54 MIL/MM3 Hemoglobin 12.0 GM/DL Hematocrit 37.7 % Mean Corpuscular Volume 83.0 FL Mean Corpuscular Hemoglobin 26.5 PG Mean Corpuscular Hemoglobin 31.9 % Concent Red Cell Distribution Width 14.3 % Platelet Count 142 TH/MM3 Mean Platelet Volume 9.4 FL Neutrophils (%) (Auto) 67.0 % Lymphocytes (%) (Auto) 16.7 % Monocytes (%) (Auto) 10.6 % Eosinophils (%) (Auto) 5.3 % Basophils (%) (Auto) 0.4 % Neutrophils # (Auto) 4.1 TH/MM3 Lymphocytes # (Auto) 1.0 TH/MM3 Monocytes # (Auto) 0.7 TH/MM3 Eosinophils # (Auto) 0.3 TH/MM3 Basophils # (Auto) 0.0 TH/MM3 CBC Comment DIFF FINAL Differential Comment Prothrombin Time 28.5 SEC Prothromb Time International 2.6 RATIO Ratio Sodium Level 133 MEQ/L Potassium Level 3.9 MEQ/L Chloride Level 97 MEQ/L Carbon Dioxide Level 27.1 MEQ/L Anion Gap 9 MEQ/L Blood Urea Nitrogen 17 MG/DL Creatinine 0.67 MG/DL Estimat Glomerular Filtration 121 ML/MIN Rate Random Glucose 175 MG/DL Calcium Level 8.3 MG/DL Magnesium Level 2.0 MG/DL Imaging Last Impressions Chest X-Ray 12/23/15 0000 Signed Impressions: Service Date/Time: Wednesday, December 23, 2015 08:32 - CONCLUSION: Left basilar opacity could be atelectasis or minimal infiltrate. Mikie Vargas MD Neck Magnetic Resonance Angiography 12/22/15 1445 Signed Impressions: Service Date/Time: Tuesday, December 22, 2015 09:22 - CONCLUSION: Variant origin of the left vertebral artery from the aortic arch. No evidence of carotid stenosis. Glen Zamora MD Head Magnetic Resonance Angiography 12/22/15 1445 Signed Impressions: Service Date/Time: Tuesday, December 22, 2015 09:22 - CONCLUSION: 1. 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 2. Anterior circulation remains patent without aneurysmal disease. Bobby Gray MD Brain MRI 12/22/15 1339 Signed Impressions: Service Date/Time: Tuesday, December 22, 2015 14:37 - CONCLUSION: Worsening brain appearance with abnormal signal developing in large portions of the brainstem. Glen Zamora MD ADDENDUM: Upon further review of images there is signal identified within the basilar artery consistent with thrombosis. Jonel Jones Jr., MD Head/Brain Mag Res Venography 12/22/15 0000 Signed Impressions: Service Date/Time: Tuesday, December 22, 2015 09:22 - CONCLUSION: Normal MRV. Jonel Jones Jr., MD Head CT 12/21/15 0546 Signed Impressions: Service Date/Time: December 06:01 - CONCLUSION: 1. No focal or acute intracranial hemorrhage. 2. There is a new area of decreased density in the left occipital lobe suggestive of a recent nonhemorrhagic infarction. 3. The decreased density in the previously noted right occipital lobe has increased in size. Michael Hamilton MD Objective Remarks Glucerna 1.5 at 45 L per hour. GENERAL: Well-nourished, well-developed patient who is orotracheally intubated. On no continuous sedation. SKIN: Warm and dry. HEAD: Normocephalic. EYES: No scleral icterus. No injection or drainage. NECK: Supple, trachea midline. No JVD or lymphadenopathy. Orally intubated CARDIOVASCULAR: Regular rate and rhythm without murmurs, gallops, or rubs, currently sinus on monitor. RESPIRATORY: Breath sounds equal bilaterally. No accessory muscle use. GASTROINTESTINAL: Abdomen soft, non-tender, nondistended. Bowel sounds present. : Arevalo in place with slight blood tinged urine. MUSCULOSKELETAL: No cyanosis, or edema. NEURO: Eyes open to voice and he looks up and down and to the left to command. ? R gaze palsy. Weakly Withdraws LUE to noxious stimuli+cough reflex, + spontaneous respirations. Babinski upgoing on L, no response to babinski on r. A/P Assessment and Plan IMPRESSION Basilar artery thrombosis with pontine, cerebellar, occipital Stroke Acute respiratory failure Stage III a non-Hodgkin's lymphoma status post chemotherapy last year Status post brain biopsy on December 13. Atrial fibrillation. Diabetes mellitus Hypertension Hyponatremia Plan Neuro: Basilar artery thrombosis with pontine, cerebellar, occipital Stroke Locked-in state. On Keppra 500 mg b.i.d, changed to liquid. Anticoagulation for Afib and thrombosis per neuro. Repeat MRI brain 12/24: showed evolving acute infarction in both occipital lobes consistent with basilar thrombosis. EEG 12/20: Severe encephalopathy. 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 Anterior circulation remains patent without aneurysmal disease. MRI today. Pulm: Continue with CPAP as tolerated. Mechanical ventilation 12/20 #9. Family initially indicated they would like to wait a little longer before deciding about trach/PEG as they are hopeful there is a chance he can improved enough to protect his airway. However, their goals appear aggressive overall and as such it appears it is in this patients best interest to proceed with trach as it does not appear he would protect his airway. I have discussed this with them. Holding warfarin and plan to proceed with trach when INR appropriate. CV: Paroxysmal Atrial fibrillation ...Now in sinus rhythm. Monitor HR and BP keep MAP>65mmHg Echo from 12/07 showed an EF of 60% with no regional wall motion abnormalities. FEN/RENAL: Mild hyponatremia(resolved) Monitor renal function Is and Os and electrolyte replacement per protocol. Sodium is improved with supplementation. Will decrease dose to sodium 1 g daily. Blood-tinged urine is likely related to anticoagulation. Will monitor. GI: On TF-Vital High protein at 60 mL per hour per nutrition recommendations. Now having bowel movements. Low back off bowel regimen. DC lactulose.. Continue colace. ID: Fever ?secondary to stroke GNR sputum On empiric Zosyn 12/22 #7 and vancomycin #6 Will d/c vancomycin. Will not add additional coverage for GNR at this time, will followup identification and sensitivity. I do not want to add additional antibiotics which may prolong INR given overall risk/benefit at this time since he is clinically stable. Continue to monitor. No rash. 12/26 CXR - opacity in left base appears most c/w atelectasis. No invasive lines. Microbiology: 12/27sputum culture heavy growth GNR lood cultured 2 setsno growth to date out of 4 blood cultures with staph simulans (CoNS) 12/23 blood culture NGTD 12/23 - sputum -negative 12/20 - U/a negative. Heme: Monitor CBC. Oncology signed off -Dr. Whyte. Agrees with hold warfarin and bridge with lovenox pending trach. s/p brain biopsy on December 13, by Dr. Marin. Pathology c/w acute infarct without e/o lymphoma. Endo: On low dose SSI with Accu-Chek q. 6-hour for glycemic control. TSH: 1.02 GI prophylaxis with Protonix 40 mg daily and DVT prophylaxis with SCDs, therapeutic INR provides DVT prophylaxis ACCESS: PIV Updated ex- , son at bedside. Multiple Questions answered. CCT 40 mins exclusive of separately billable procedures. Fadia Orozco MD Dec 29, 2015 15:54
--- NOTE | 2015-12-29 17:54 | HHI.PR ---
Subjective Remarks afib Objective Vital Signs Date Time Temp Pulse Resp B/P Pulse Ox O2 Delivery O2 Flow Rate FiO2 12/29/15 15:50 99 35 12/29/15 14:02 99 100 12/29/15 14:00 80 12/29/15 12:17 99 35 12/29/15 12:00 35 12/29/15 12:00 86 12/29/15 10:19 99 35 12/29/15 10:00 84 12/29/15 08:00 78 12/29/15 08:00 35 12/29/15 08:00 98.9 78 16 124/70 100 12/29/15 06:00 82 12/29/15 04:15 100 35 12/29/15 04:00 81 12/29/15 04:00 35 12/29/15 04:00 99.7 81 16 153/85 100 12/29/15 02:00 85 12/29/15 01:39 100 35 12/29/15 00:00 99.8 83 16 138/82 99 12/29/15 00:00 35 12/29/15 00:00 83 12/28/15 22:00 82 12/28/15 20:19 100 35 12/28/15 20:00 86 12/28/15 20:00 99.1 86 18 134/81 99 12/28/15 20:00 35 I/O 12/28/15 12/28/15 12/28/15 12/29/15 12/29/15 12/29/15 07:00 15:00 23:00 07:00 15:00 23:00 Intake Total 574 ml 1704 ml 806 ml 793 ml Output Total 450 ml 1025 ml 500 ml 450 ml Balance 124 ml 679 ml 306 ml 343 ml IV Total 194 ml 556 ml 345 ml 236 ml Tube Feeding 260 ml 828 ml 461 ml 357 ml Other 120 ml 320 ml 200 ml Output Urine Total 450 ml 1025 ml 500 ml 450 ml # Bowel Movements 0 2 1 3 Result Diagram: 12/29/15 0415 12/29/15 0415 Objective Remarks pupil = still following eye commands can open eyes and look to left well no movement below eyes toes up bilat Assessment and Plan Assessment and Plan mrv shows basilar occlusion and mri shows sign bilat occipital and some small r cbllr acute cva the colin is slightly hyperintense almost full thickness and looks like major pontine infarct however not as bright as we usually see with infarct he could have a penumbra effect in colin so could be recoverable or just needs time to change signal plan is to keep bp up recheck mri friday if more bright then family thinking of decisions no sedatives i rec chemical code only will consider we discussed and we will keep anticoag going for now and i told her risk of bleeding into upper brain with some blood signal in original cva i dw dr vick and nitin cancino and neither felt it would be helpful to try and extract basilar clot and could kill him they both felt the colin was infarcted he could be locked in he is acting as if colin is infarcted although slight chance it could be stunned/ penumbra neuro will follow over weekend i will be back 12/25/15 i dw family at length and reviewed films with them no major change in brainstem brightness on mri inr 3.5 target 2-2.5 i think they would like to see how he does over the next 3 months and will probably go for trach if needed and peg he is locked in for the most part but full aware 12/26/15 inr 2.6 i dw son yest had some vertical eye movements to command monitor 12/27/15 locked in so he can hear all that is said family devoted and i expect peg+/-trach and they will see how he does next 6 months inr 2.4 doesnt always respond as will not awaken as quick as others 12/29/15 doing more with eyes locked in for trach and peg coumadin management per med team for that sq hep ok if need off coumadin for trach Steven De Leon MD Dec 29, 2015 17:54
[2015-12-30] VITALS (20 sets, daily range): BP systolic 129–142; BP diastolic 73–84; PULSE 79–91; RESP 15–19; TEMP 99.1–100.1; O2SAT 99–100
[2015-12-30] MEDS: PIPERACIL-TAZO 3.375 GM PREMIX 50 ML IV SCH ×2 (01:48→10:02)
[2015-12-30 04:45] LABS: AUTOMATED NEUTROPHIL # 4.1 TH/MM3 (1.8-7.7); BASOPHIL # 0.1 TH/MM3 (0-0.2); BASOPHIL % 0.9 % (0.0-2.0); EOSINOPHIL # 0.3 TH/MM3 (0-0.4); EOSINOPHIL % 4.7 % (0.0-4.0); HEMATOCRIT 34.1 % (39.0-51.0); HEMO FLAGS DIFF FINAL; LYMPH % 19.9 % (9.0-44.0); LYMPHOCYTE # 1.2 TH/MM3 (1.0-4.8); MEAN CELL VOLUME 84.5 FL (80.0-100.0); MEAN CORPUSCULAR HEMOGLOBIN 27.1 PG (27.0-34.0); MEAN CORPUSCULAR HGB CONC 32.1 % (32.0-36.0); MONO % 5.9 % (0.0-8.0); NEUT % 68.6 % (16.0-70.0); PLATELET COUNT 176 TH/MM3 (150-450); RED BLOOD COUNT 4.04 MIL/MM3 (4.50-5.90); RED CELL DISTRIBUTION WIDTH 14.3 % (11.6-17.2)
[2015-12-30 05:01] LABS: INTERNATIONAL NORMALIZED RATIO 2.2 RATIO; PROTHROMBIN TIME - PATIENT 23.9 SEC (9.8-11.4)
[2015-12-30 05:04] LABS: BICARBONATE 27.6 MEQ/L (21.0-32.0); POTASSIUM 3.8 MEQ/L (3.5-5.1)
[2015-12-30] MEDS: INSULIN NovoLIN REGULAR SUPPLEMENTAL SCALE SQ SCH ×4 (05:37→23:26)
[2015-12-30] MEDS: levETIRAcetam 500 MG/5 ML UDC TUBE SCH ×2 (07:29→20:46)
[2015-12-30] MEDS: PANTOPRAZOLE SODIUM 40 MG VIAL IV SCH (07:29)
[2015-12-30] MEDS: DOCUSATE SODIUM 100 MG/10 ML UDC TUBE SCH ×2 (07:29→20:46)
[2015-12-30] MEDS: SODIUM CHLORIDE 1 GRAM TAB TUBE SCH (07:29)
[2015-12-30] MEDS: SENNOSIDES SYRUP 8.8 MG/5 ML CUP TUBE SCH (07:29)
[2015-12-30] MEDS: CHLORHEXIDINE 0.12% (ORAL KIT) 15 ML CUP MT SCH ×2 (07:30→20:46)
[2015-12-30] MEDS: ACETAMINOPHEN 325 MG TAB PO PRN (13:24)
--- NOTE | 2015-12-30 13:44 | HHI.CCPN ---
Subjective Remarks/Hospital Course The patient is a 59-year-old male with past medical history of paroxysmal atrial fibrillation, hypertension, stage III a non-Hodgkin's lymphoma status post a chemotherapy last year. He received Rituxan CHOP. He presented to [facility] emergency department with altered mental status. Most of the history was obtained from reviewing medical records as the patient is poor historian. When he woke up of 4 o'clock this morning the patient had some right facial droop associated with headaches. Due to altered mental status CT scan of the brain was obtained which showed no focal or acute intracranial hemorrhage. However, there is an new area of decreased density in the left occipital lobe, suggestive of recent non hemorrhagic infarction and the decreased density in the previously noted right occipital lobe has increased in size. The patient was recently admitted back on December 06 with similar presentation and he had a right occipital juan jose hole brain biopsy by Dr. Marin on December 13. The pathology results pending. The patient became the patient noted to have very sonorous respirations and can and follow any commands in addition he was obtunded. He was subsequently intubated by the emergency department physician and MRI of the brain was obtained which showed a new area of restricted diffusion within the left occipital lobe suggesting acute infarction. No evidence of any acute hemorrhage, midline shift or a fluid collection. When seen the patient is sedated with Diprivan and on full mechanical ventilation. ABG post intubation showed a pH of 7.41, CO2 35, pAO2 100, bicarb of 22, saturation 93% on assist control ventilation rate of 14, tidal volume 550, PEEP five, FIO2 of 40%. Chest x-ray Post intubation showed ET tube above the geno in no acute cardiopulmonary process. His last echocardiogram was obtained in January of last year which showed an EF of 60% with no regional wall motion abnormalities. EKG on arrival showed A fib with RVR at rate of 114 beats per minute. The patient was given Cardizem 20 mg IV push in the emergency department and was initially placed on Cardizem drip. However, now is off. 12/21 No events overnight. Sedated with Diprivan and intubated. Afebrile. For MRA brain , carotids and MRV brain today . 12/22 Patient remains intubated, off sedation. T: 100.1 at midnight. 12/23 No events overnight. Remains off sedation. Had T: 101.3 at 4am. Withdraws to pain. 12/24 Patient remains intubated, on no sedation, T: 100.3 last night. For repeat MRI brain today 12/25 No events overnight. Tolerated CPAP for 4-5 hrs yesterday. T:100.1. 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 12/26 Tolerating CPAP. Temp max 100.1. Opens eyes to voice, reportedly has been blinking to command but isn't doing so currently even when family encouraging him. 12/27 Continues to tolerate CPAP. Follows commands via ocular movements. Weak withdraw LUE noxious stimuli. Biopsy brain lesion appears c/w acute infarct, no lymphoma. 12/28 Tolerating CPAP 04/24. Family desires trach and warfarin placed on hold. MRI today per neurology. GNR in sputum. Subjective: 12/29 Tolerating tube feeds. INR 2.2. sputum culture with pansensitive klebsiella. Objective - Vital Signs Date Time Temp Pulse Resp B/P Pulse Ox O2 Delivery O2 Flow Rate FiO2 12/30/15 12:40 99 35 12/30/15 12:00 99.9 88 19 139/84 I/O 12/29/15 12/29/15 12/30/15 08:00 16:00 00:00 Intake Total 806 ml 793 ml 600 ml Output Total 500 ml 450 ml 400 ml Balance 306 ml 343 ml 200 ml Result Diagram: 12/30/15 0334 12/30/15 0334 Other Results Laboratory Tests Test 12/26/15 03:51 White Blood Count 6.2 TH/MM3 Red Blood Count 4.54 MIL/MM3 Hemoglobin 12.0 GM/DL Hematocrit 37.7 % Mean Corpuscular Volume 83.0 FL Mean Corpuscular Hemoglobin 26.5 PG Mean Corpuscular Hemoglobin 31.9 % Concent Red Cell Distribution Width 14.3 % Platelet Count 142 TH/MM3 Mean Platelet Volume 9.4 FL Neutrophils (%) (Auto) 67.0 % Lymphocytes (%) (Auto) 16.7 % Monocytes (%) (Auto) 10.6 % Eosinophils (%) (Auto) 5.3 % Basophils (%) (Auto) 0.4 % Neutrophils # (Auto) 4.1 TH/MM3 Lymphocytes # (Auto) 1.0 TH/MM3 Monocytes # (Auto) 0.7 TH/MM3 Eosinophils # (Auto) 0.3 TH/MM3 Basophils # (Auto) 0.0 TH/MM3 CBC Comment DIFF FINAL Differential Comment Prothrombin Time 28.5 SEC Prothromb Time International 2.6 RATIO Ratio Sodium Level 133 MEQ/L Potassium Level 3.9 MEQ/L Chloride Level 97 MEQ/L Carbon Dioxide Level 27.1 MEQ/L Anion Gap 9 MEQ/L Blood Urea Nitrogen 17 MG/DL Creatinine 0.67 MG/DL Estimat Glomerular Filtration 121 ML/MIN Rate Random Glucose 175 MG/DL Calcium Level 8.3 MG/DL Magnesium Level 2.0 MG/DL Imaging Last Impressions Chest X-Ray 12/23/15 0000 Signed Impressions: Service Date/Time: Wednesday, December 23, 2015 08:32 - CONCLUSION: Left basilar opacity could be atelectasis or minimal infiltrate. Mikie Vargas MD Neck Magnetic Resonance Angiography 12/22/15 1445 Signed Impressions: Service Date/Time: Tuesday, December 22, 2015 09:22 - CONCLUSION: Variant origin of the left vertebral artery from the aortic arch. No evidence of carotid stenosis. Glen Zamora MD Head Magnetic Resonance Angiography 12/22/15 1445 Signed Impressions: Service Date/Time: Tuesday, December 22, 2015 09:22 - CONCLUSION: 1. 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 2. Anterior circulation remains patent without aneurysmal disease. Bobby Gray MD Brain MRI 12/22/15 1339 Signed Impressions: Service Date/Time: Tuesday, December 22, 2015 14:37 - CONCLUSION: Worsening brain appearance with abnormal signal developing in large portions of the brainstem. Glen Zamora MD ADDENDUM: Upon further review of images there is signal identified within the basilar artery consistent with thrombosis. Jonel Jones Jr., MD Head/Brain Mag Res Venography 12/22/15 0000 Signed Impressions: Service Date/Time: Tuesday, December 22, 2015 09:22 - CONCLUSION: Normal MRV. Jonel Jones Jr., MD Head CT 12/21/15 0546 Signed Impressions: Service Date/Time: December 06:01 - CONCLUSION: 1. No focal or acute intracranial hemorrhage. 2. There is a new area of decreased density in the left occipital lobe suggestive of a recent nonhemorrhagic infarction. 3. The decreased density in the previously noted right occipital lobe has increased in size. Michael Hamilton MD Objective Remarks Glucerna 1.5 at 45 L per hour. GENERAL: Well-nourished, well-developed patient who is orotracheally intubated. On no continuous sedation. SKIN: Warm and dry. HEAD: Normocephalic. EYES: No scleral icterus. No injection or drainage. NECK: Supple, trachea midline. No JVD or lymphadenopathy. Orally intubated CARDIOVASCULAR: Regular rate and rhythm without murmurs, gallops, or rubs, currently sinus on monitor with rate in 80s. RESPIRATORY: Breath sounds equal bilaterally. No accessory muscle use. GASTROINTESTINAL: Abdomen soft, non-tender, nondistended. Bowel sounds present. : Arevalo in place with dark urine. MUSCULOSKELETAL: No cyanosis, or edema. NEURO: Eyes open to voice and he looks up and down and to the left to command. ? R gaze palsy. Weakly Withdraws LUE to noxious stimuli+cough reflex, + spontaneous respirations + spontaneous swalling. Babinski upgoing on L, no response to Babinski on R. A/P Assessment and Plan IMPRESSION Basilar artery thrombosis with pontine, cerebellar, occipital Stroke Acute respiratory failure Stage III a non-Hodgkin's lymphoma status post chemotherapy last year Status post brain biopsy on December 13. Atrial fibrillation. Diabetes mellitus Hypertension Hyponatremia Plan Neuro: Basilar artery thrombosis with pontine, cerebellar, occipital Stroke Locked-in state. On Keppra 500 mg b.i.d that had been started by Dr. Luna last admission. Anticoagulation for Afib and thrombosis. Repeat MRI brain 12/24: showed evolving acute infarction in both occipital lobes consistent with basilar a. thrombosis. MRI brain 12/28 -stable large brainstem infarcts and bilateral occipital infarcts EEG 12/20: Severe encephalopathy. Pulm: Continue with CPAP as tolerated. Mechanical ventilation 12/20 #10. Family initially indicated they would like to wait a little longer before deciding about trach/PEG as they are hopeful there is a chance he can improved enough to protect his airway. However, their goals appear aggressive overall and as such it appears it is in this patients best interest to proceed with trach as it does not appear he would protect his airway. I have discussed this with them. Holding warfarin and plan to proceed with trach and PEG when INR appropriate. CV: Paroxysmal Atrial fibrillation ...Now in sinus rhythm. Monitor HR and BP keep MAP>65mmHg Echo from 12/07 showed an EF of 60% with no regional wall motion abnormalities. Intake regulation for atrial fibrillation as per above FEN/RENAL: Mild hyponatremia(resolved) Monitor renal function Is and Os and electrolyte replacement per protocol. Sodium is improved with supplementation. On sodium 1 g daily. Adding free water flushes 200q8 because he looks little dry today. Continue monitor sodium. Mild hematuria yesterday (blood tinged) urine likely due to anticoagulation. Now dark, may be related to heme. Check serum bili too, though does not appear icteric. GI: On TF-Vital High protein at 60 mL per hour per nutrition recommendations. Now having bowel movements. Have backed of bowel regimen. Continue colace. ID: Fever ?secondary to stroke Acute pneumonia - L basilar opacity on CXR 12/22 Klebsiella pneumonia in sputum 12/27 12/26 CXR - opacity in left base appears most c/w atelectasis. Has been on Zosyn 12/22 #8. Klebsiella is pansensitive so d/c zosyn and start rocpehin. Completed 6 day course of vancomycin, stopped 12/28 based on culture data Blood culture 12/22 with CoNS / bottles. No invasive lines. Lactinex bid while on abx. Microbiology: 12/27sputum culture heavy growth Klebsiella pneumonia, pansensitive. lood cultured 2 setsno growth to date out of 4 blood cultures with staph simulans (CoNS) 12/23 blood culture NGTD 12/23 - sputum -negative 12/20 - U/a negative. Heme: Monitor CBC. Oncology signed off -Dr. Whyte. Agrees with hold warfarin and bridge with lovenox pending trach. s/p brain biopsy on December 13, by Dr. Marin. Pathology c/w acute infarct without e/o lymphoma. Endo: On low dose SSI with Accu-Chek q. 6-hour for glycemic control. TSH: 1.02 GI prophylaxis with Protonix 40 mg daily and DVT prophylaxis with SCDs, therapeutic INR provides DVT prophylaxis ACCESS: PIV Updated ex- , son, daughter, cousin who is an internal medicine physician, at bedside. Multiple Questions answered. CCT 40 mins exclusive of separately billable procedures. Fadia Orozco MD Dec 30, 2015 13:44
[2015-12-30] MEDS: FREE WATER G-TUBE SCH ×3 (14:45→22:47)
[2015-12-30 15:21] LABS: INDIRECT BILIRUBIN 0.4 MG/DL (0.0-0.8); TOTAL BILIRUBIN ADULT 0.6 MG/DL (0.2-1.0)
[2015-12-30] MEDS: cefTRIAXone INJ 1,000 MG in SODIUM CHLORIDE 0.9% INJ 100 ML IV SCH (16:01)
[2015-12-30] MEDS: LACTOBACILLUS ACIDOPHILUS 1 GM PACKET TUBE SCH (20:46)
[2015-12-30] MEDS: CHLORHEXIDINE GLUCONATE 2 % 1 PACK (2 CLOTHS) TOP SCH (22:47)
[2015-12-31] VITALS (20 sets, daily range): BP systolic 128–167; BP diastolic 71–86; PULSE 76–91; RESP 11–16; TEMP 98.7–99.8; O2SAT 99–100
[2015-12-31] MEDS: cefTRIAXone INJ 1,000 MG in SODIUM CHLORIDE 0.9% INJ 100 ML IV SCH ×2 (04:02→13:42)
[2015-12-31] MEDS: FREE WATER G-TUBE SCH ×2 (04:19→18:00)
[2015-12-31] MEDS: INSULIN NovoLIN REGULAR SUPPLEMENTAL SCALE SQ SCH ×3 (04:19→18:03)
[2015-12-31 05:35] LABS: INTERNATIONAL NORMALIZED RATIO 1.5 RATIO; PROTHROMBIN TIME - PATIENT 15.3 SEC (9.8-11.4)
[2015-12-31 05:51] LABS: BICARBONATE 26.6 MEQ/L (21.0-32.0); POTASSIUM 3.8 MEQ/L (3.5-5.1)
[2015-12-31] MEDS: SODIUM CHLORIDE 1 GRAM TAB TUBE SCH ×2 (07:29→20:08)
[2015-12-31] MEDS: LACTOBACILLUS ACIDOPHILUS 1 GM PACKET TUBE SCH ×2 (07:29→20:08)
[2015-12-31] MEDS: SENNOSIDES SYRUP 8.8 MG/5 ML CUP TUBE SCH (07:29)
[2015-12-31] MEDS: PANTOPRAZOLE SODIUM 40 MG VIAL IV SCH (07:30)
[2015-12-31] MEDS: levETIRAcetam 500 MG/5 ML UDC TUBE SCH ×2 (07:30→20:08)
[2015-12-31] MEDS: DOCUSATE SODIUM 100 MG/10 ML UDC TUBE SCH ×2 (07:30→20:08)
[2015-12-31] MEDS: ENOXAPARIN SODIUM 100 MG/ML SYRINGE SQ SCH ×2 (07:30→20:08)
[2015-12-31] MEDS: CHLORHEXIDINE 0.12% (ORAL KIT) 15 ML CUP MT SCH ×2 (07:31→20:00)
--- NOTE | 2015-12-31 08:56 | PD.CONS ---
HPI History of Present Illness This is a 60 year old male patient with multiple medical problems including paroxysmal atrial fibrillation, htn, stage III a non-Hodgkin's lymphoma, who was brought to the ER on 12/21/15 for AMS. He was found to have basilar artery thrombosis with pontine, cerebellar, occipital stroke. He is being followed by neurology and is thought to be in a locked-in state. He remains in the ICU, intubated on CPAP. He is in the ICU on CPAP, being treated for his cva, paroxysmal atrial fibrillation, acute pneumonia, and multiple electrolyte abnormalities. His coumadin was placed on hold and his INR is currently 1.5. He is currently receiving lovenox. The jail manager is following and has recommended Vital HP @ 60 mls/hr. Called Leanne Colon at . She reports that she is legally from the patient and that the 3 children are legally the healthcare surrogates. The children are not listed under next of kin (Fabrice Conradd- nephew/niece) and person to notify- Leanne Colon. She provided the following numbers for the children: Xiomara , Mike Flores ([phone], Ginny Mendezmary kay ([phone]. She reports that she would like for us discuss the procedure with she and the children together around noon today. They would also like for the peg to be coordinated with general surgery' s tracheostomy placement. (Cielo Sorensen) PFSH Past Medical History Paroxysmal atrial fibrillation HTN Stage IIIA Nonhodgkin's lymphoma DM Past Surgical History Brain bx Left arm surgery (Cielo Sorensen) Coded Allergies: No Known Allergies (Verified , 12/21/15) Medications Allergies Coded Allergies Type Severity Reaction Last Updated Verified No Known Allergies 12/21/15 Yes Active Scripts Medications Dose Route/Sig Days Date Category Dose Instructions Phenergan 25 mg (Promethazine HCl) 25 Mg Tab 12.5 Mg PO Q8HR PRN 12/21/15 Reported Hm Omeprazole (Omeprazole) 20 Mg Tab 20 Mg PO DAILY 12/16/15 Rx Phenergan (Promethazine HCl) 25 Mg Tab 12.5 Mg PO Q8HR PRN 12/16/15 Rx Decadron 2 mg (Dexamethasone) 2 Mg Tab 1 Tab PO DIRECTED 12/16/15 Rx Decrease dose as directed until finish all the meds 2 mg TID for 4 days 2 mg BID for 4 days 2 mg daily for 4 days 2 mg every other days for 8 days Lorazepam 0.5 Mg Tab 0.5 Mg PO Q8HR PRN 12/16/15 Rx Habitrol 21 mg/24 Hr Patch (Nicotine) 1 Patch Patch 1 Patch TD DAILY 30 12/16/15 Rx Keppra (Levetiracetam) 250 Mg Tab 750 Mg PO BID 30 12/16/15 Rx Vasotec (Enalapril Maleate) 20 Mg Tab 20 Mg PO DAILY 12/08/15 Reported Glucophage 500 mg (Metformin HCl) 500 Mg Tab 500 Mg PO DAILY 12/06/15 Rx Lipitor 40 Mg Tab (Atorvastatin Calcium) 40 Mg Tab 40 Mg PO HS 12/06/15 Rx Betapace (Sotalol Hcl) 80 Mg Tab 0.5 Tab PO HS 02/14/15 Reported Family History Noncontributory Social History Smoked 1/2 PPD. No etoh No illicit drug use. (Cielo Sorensen) Review of Systems ROS Unable to obtain (Cielo Sorensen) GI Exam Vitals I&O Vital Signs Date Time Temp Pulse Resp B/P Pulse Ox O2 Delivery O2 Flow Rate FiO2 12/31/15 08:00 81 12/31/15 08:00 99.5 81 14 128/71 100 12/31/15 08:00 35 12/31/15 07:10 100 35 12/31/15 06:00 85 12/31/15 04:32 100 35 12/31/15 04:00 90 12/31/15 04:00 99.8 90 16 143/77 99 12/31/15 04:00 35 12/31/15 02:00 88 12/31/15 01:00 100 35 12/31/15 00:00 82 12/31/15 00:00 98.9 82 16 134/80 99 12/31/15 00:00 35 12/30/15 23:41 100 35 12/30/15 22:35 100 35 12/30/15 22:00 85 12/30/15 20:40 100 35 12/30/15 20:00 35 12/30/15 20:00 99.1 84 16 142/82 99 12/30/15 20:00 84 12/30/15 18:00 83 12/30/15 16:20 100 35 12/30/15 16:00 35 12/30/15 16:00 79 12/30/15 16:00 99.5 79 15 141/80 100 12/30/15 14:00 81 12/30/15 12:40 99 35 12/30/15 12:00 35 12/30/15 12:00 99.9 88 19 139/84 99 12/30/15 12:00 88 12/30/15 10:00 87 I/O 12/30/15 12/30/15 12/30/15 12/31/15 12/31/15 12/31/15 07:00 15:00 23:00 07:00 15:00 23:00 Intake Total 405 ml 720 ml 686 ml 778 ml Output Total 400 ml 300 ml 450 ml 400 ml Balance 5 ml 420 ml 236 ml 378 ml IV Total 85 ml 130 ml 120 ml 188 ml Tube Feeding 320 ml 470 ml 366 ml 590 ml Other 120 ml 200 ml Output Urine Total 400 ml 300 ml 450 ml 400 ml # Bowel Movements 0 0 0 Imaging Last Impressions Brain MRI 12/29/15 0000 Signed Impressions: Service Date/Time: Tuesday, December 29, 2015 13:35 - CONCLUSION: Stable MRI showing a large brain stem infarct and bilateral occipital infarcts from a basilar artery thrombosis. Octavio Ramírez MD FACR Chest X-Ray 12/28/15 0600 Signed Impressions: Service Date/Time: December 03:42 - CONCLUSION: Stable chest x-ray under inflation and subsegmental atelectasis at the bases. Glen Gordon MD Neck Magnetic Resonance Angiography 12/22/15 1449 Signed Impressions: Service Date/Time: Tuesday, December 22, 2015 09:22 - CONCLUSION: Variant origin of the left vertebral artery from the aortic arch. No evidence of carotid stenosis. Glen Zamora MD Head Magnetic Resonance Angiography 12/22/15 6330 Signed Impressions: Service Date/Time: Tuesday, December 22, 2015 09:22 - CONCLUSION: 1. 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 2. Anterior circulation remains patent without aneurysmal disease. Bobby Gray MD Head/Brain Mag Res Venography 12/22/15 0000 Signed Impressions: Service Date/Time: Tuesday, December 22, 2015 09:22 - CONCLUSION: Normal MRV. Jonel Jones Jr., MD Head CT 12/21/15 0546 Signed Impressions: Service Date/Time: December 06:01 - CONCLUSION: 1. No focal or acute intracranial hemorrhage. 2. There is a new area of decreased density in the left occipital lobe suggestive of a recent nonhemorrhagic infarction. 3. The decreased density in the previously noted right occipital lobe has increased in size. Michael Hamilton MD Laboratory Test 12/31/15 05:01 Prothrombin Time 15.3 SEC Prothromb Time International 1.5 RATIO Ratio Sodium Level 134 MEQ/L Potassium Level 3.8 MEQ/L Chloride Level 101 MEQ/L Carbon Dioxide Level 26.6 MEQ/L Anion Gap 6 MEQ/L Blood Urea Nitrogen 19 MG/DL Creatinine 0.59 MG/DL Estimat Glomerular Filtration 140 ML/MIN Rate Random Glucose 176 MG/DL Calcium Level 8.8 MG/DL Date/Time Procedure Status Source Growth 12/28/15 14:36 Aerobic Blood Culture - Preliminary Resulted Blood Peripheral NO GROWTH IN 2 DAYS 12/28/15 14:36 Anaerobic Blood Culture - Preliminary Resulted Blood Peripheral NO GROWTH IN 2 DAYS 12/28/15 12:33 Gram Stain - Final Complete Sputum Endotracheal 12/28/15 12:33 Sputum Culture - Final Complete Klebsiella Pneumoniae 12/28/15 12:00 Urine Culture - Final Complete Urine Catheterized Urine NO GROWTH IN 48 HOURS. Physical Examination HEENT: Normocephalic; atraumatic; no jaundice. CHEST: Scattered rhonchi. OETT to vent CARDIAC: RRR. ABDOMEN: Soft, round, nondistended, nontender; no hepatosplenomegaly; bowel sounds are present in all four quadrants. EXTREMITIES: Generalized edema. SKIN: Normal; no rash; no jaundice. PHYSICAL THERAPY ASST: Resting with eyes closed. (Cielo Sorensen) Assessment and Plan Plan ASSESSMENT: - Dysphagia, FEN. 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 GI consulted for PEG tube placement. He He is being followed by neurology and is thought to be in a locked-in state. Power System Electrical Engineer is following and has recommended Vital HP @ 60 mls/hr. Called Leanne Colon at . She reports that she is legally from the patient and that the 3 children are legally the healthcare surrogates. The children are not listed under next of kin (Fabrice Mckeon- nephew/niece) and person to notify- Leanne Colon. She provided the following numbers for the children: Xiomara , Mike Flores ([phone], Ginny Flores ([phone]. She reports that she would like for us discuss the procedure with she and the children together around noon today. They would also like for the peg to be coordinated with general surgery's tracheostomy placement. Pt is on lovenox. PLAN: - Possible EGD with PEG tube placement on Friday- Will meet family this afternoon to further discuss procedure per their request Will need to coordinate with GS to be done at same time as tracheostomy - Obtain consents - On abx. - Hold lovenox after MN Friday - Supportive care - Further recommendations to follow based on results of above - Pt seen and examined by Dr. Urena and myself and this note is written on his behalf ADDENDUM: Spoke to cousin, ex-, 3 children at bedside re: egd with peg tube placement- procedure, risks, benefits. They verbalize understanding and are agreeable, but would like proprofol to be used at decreased dose, to try to avoid hypotension. Did explain that although the b/p is closely monitored and that the medicine can be titrated during the procedure, that there is a risk of hypotension related to the medication, despite titrated dosage. They verbalize understanding but would at least dry decreased dose and would like to speak to anesthesiologist prior to procedure. (Cielo Sorensen) Physician Comments Seen and examined, peg discussed with daughter atthe bedside. Will discuss with anesthesia regarding useing ketamine in lieu of propofol for the procedure tomorrow. Dr. Becerril will do procedure. Thank you (Ramana Urena MD) Cielo Sorensen Dec 31, 2015 08:56 Ramana Urena MD Dec 31, 2015 16:08
[2015-12-31] MEDS: ACETAMINOPHEN 650 MG/20.3 ML UDC TUBE PRN (13:42)
--- NOTE | 2015-12-31 13:52 | HHI.CCPN ---
Subjective Remarks/Hospital Course The patient is a 59-year-old male with past medical history of paroxysmal atrial fibrillation, hypertension, stage III a non-Hodgkin's lymphoma status post a chemotherapy last year. He received Rituxan CHOP. He presented to [facility] emergency department with altered mental status. Most of the history was obtained from reviewing medical records as the patient is poor historian. When he woke up of 4 o'clock this morning the patient had some right facial droop associated with headaches. Due to altered mental status CT scan of the brain was obtained which showed no focal or acute intracranial hemorrhage. However, there is an new area of decreased density in the left occipital lobe, suggestive of recent non hemorrhagic infarction and the decreased density in the previously noted right occipital lobe has increased in size. The patient was recently admitted back on December 06 with similar presentation and he had a right occipital juan jose hole brain biopsy by Dr. Marin on December 13. The pathology results pending. The patient became the patient noted to have very sonorous respirations and can and follow any commands in addition he was obtunded. He was subsequently intubated by the emergency department physician and MRI of the brain was obtained which showed a new area of restricted diffusion within the left occipital lobe suggesting acute infarction. No evidence of any acute hemorrhage, midline shift or a fluid collection. When seen the patient is sedated with Diprivan and on full mechanical ventilation. ABG post intubation showed a pH of 7.41, CO2 35, pAO2 100, bicarb of 22, saturation 93% on assist control ventilation rate of 14, tidal volume 550, PEEP five, FIO2 of 40%. Chest x-ray Post intubation showed ET tube above the geno in no acute cardiopulmonary process. His last echocardiogram was obtained in January of last year which showed an EF of 60% with no regional wall motion abnormalities. EKG on arrival showed A fib with RVR at rate of 114 beats per minute. The patient was given Cardizem 20 mg IV push in the emergency department and was initially placed on Cardizem drip. However, now is off. 12/21 No events overnight. Sedated with Diprivan and intubated. Afebrile. For MRA brain , carotids and MRV brain today . 12/22 Patient remains intubated, off sedation. T: 100.1 at midnight. 12/23 No events overnight. Remains off sedation. Had T: 101.3 at 4am. Withdraws to pain. 12/24 Patient remains intubated, on no sedation, T: 100.3 last night. For repeat MRI brain today 12/25 No events overnight. Tolerated CPAP for 4-5 hrs yesterday. T:100.1. 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 12/26 Tolerating CPAP. Temp max 100.1. Opens eyes to voice, reportedly has been blinking to command but isn't doing so currently even when family encouraging him. 12/27 Continues to tolerate CPAP. Follows commands via ocular movements. Weak withdraw LUE noxious stimuli. Biopsy brain lesion appears c/w acute infarct, no lymphoma. 12/28 Tolerating CPAP 04/24. Family desires trach and warfarin placed on hold. MRI today per neurology. GNR in sputum. 12/29 Tolerating tube feeds. INR 2.2. sputum culture with pansensitive klebsiella. Subjective: 12/30 No neuro change. Continues to tolerate CPAP. Objective - Vital Signs Date Time Temp Pulse Resp B/P Pulse Ox O2 Delivery O2 Flow Rate FiO2 12/31/15 12:08 100 35 12/31/15 12:00 99.3 83 16 136/79 I/O 12/30/15 12/30/15 12/30/15 07:59 15:59 23:59 Intake Total 405 ml 720 ml 686 ml Output Total 400 ml 300 ml 450 ml Balance 5 ml 420 ml 236 ml Result Diagram: 12/30/15 0334 12/31/15 0501 Other Results Laboratory Tests Test 12/26/15 03:51 White Blood Count 6.2 TH/MM3 Red Blood Count 4.54 MIL/MM3 Hemoglobin 12.0 GM/DL Hematocrit 37.7 % Mean Corpuscular Volume 83.0 FL Mean Corpuscular Hemoglobin 26.5 PG Mean Corpuscular Hemoglobin 31.9 % Concent Red Cell Distribution Width 14.3 % Platelet Count 142 TH/MM3 Mean Platelet Volume 9.4 FL Neutrophils (%) (Auto) 67.0 % Lymphocytes (%) (Auto) 16.7 % Monocytes (%) (Auto) 10.6 % Eosinophils (%) (Auto) 5.3 % Basophils (%) (Auto) 0.4 % Neutrophils # (Auto) 4.1 TH/MM3 Lymphocytes # (Auto) 1.0 TH/MM3 Monocytes # (Auto) 0.7 TH/MM3 Eosinophils # (Auto) 0.3 TH/MM3 Basophils # (Auto) 0.0 TH/MM3 CBC Comment DIFF FINAL Differential Comment Prothrombin Time 28.5 SEC Prothromb Time International 2.6 RATIO Ratio Sodium Level 133 MEQ/L Potassium Level 3.9 MEQ/L Chloride Level 97 MEQ/L Carbon Dioxide Level 27.1 MEQ/L Anion Gap 9 MEQ/L Blood Urea Nitrogen 17 MG/DL Creatinine 0.67 MG/DL Estimat Glomerular Filtration 121 ML/MIN Rate Random Glucose 175 MG/DL Calcium Level 8.3 MG/DL Magnesium Level 2.0 MG/DL Imaging Last Impressions Chest X-Ray 12/23/15 0000 Signed Impressions: Service Date/Time: Wednesday, December 23, 2015 08:32 - CONCLUSION: Left basilar opacity could be atelectasis or minimal infiltrate. Mikie Vargas MD Neck Magnetic Resonance Angiography 12/22/15 1445 Signed Impressions: Service Date/Time: Tuesday, December 22, 2015 09:22 - CONCLUSION: Variant origin of the left vertebral artery from the aortic arch. No evidence of carotid stenosis. Glen Zamora MD Head Magnetic Resonance Angiography 12/22/15 1445 Signed Impressions: Service Date/Time: Tuesday, December 22, 2015 09:22 - CONCLUSION: 1. 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 2. Anterior circulation remains patent without aneurysmal disease. Bobby Gray MD Brain MRI 12/22/15 1339 Signed Impressions: Service Date/Time: Tuesday, December 22, 2015 14:37 - CONCLUSION: Worsening brain appearance with abnormal signal developing in large portions of the brainstem. Glen Zamora MD ADDENDUM: Upon further review of images there is signal identified within the basilar artery consistent with thrombosis. Jonel Jones Jr., MD Head/Brain Mag Res Venography 12/22/15 0000 Signed Impressions: Service Date/Time: Tuesday, December 22, 2015 09:22 - CONCLUSION: Normal MRV. Jonel Jones Jr., MD Head CT 12/21/15 0546 Signed Impressions: Service Date/Time: December 06:01 - CONCLUSION: 1. No focal or acute intracranial hemorrhage. 2. There is a new area of decreased density in the left occipital lobe suggestive of a recent nonhemorrhagic infarction. 3. The decreased density in the previously noted right occipital lobe has increased in size. Michael Hamilton MD Objective Remarks Glucerna 1.5 at 45 L per hour. GENERAL: Well-nourished, well-developed patient who is orotracheally intubated. On no continuous sedation. SKIN: Warm and dry. HEAD: Normocephalic. EYES: No scleral icterus. No injection or drainage. NECK: Supple, trachea midline. No JVD or lymphadenopathy. Orally intubated CARDIOVASCULAR: Regular rate and rhythm without murmurs, gallops, or rubs, currently sinus on monitor with rate in 80s. RESPIRATORY: Breath sounds equal bilaterally. No accessory muscle use. GASTROINTESTINAL: Abdomen soft, non-tender, nondistended. Bowel sounds present. : Arevalo in place with dark urine. MUSCULOSKELETAL: No cyanosis, or edema. NEURO: Eyes open to voice and he looks up and down and to the left to command. ? R gaze palsy. Weakly Withdraws LUE to noxious stimuli+cough reflex, + spontaneous respirations + spontaneous swalling. Babinski upgoing on L, no response to Babinski on R. A/P Assessment and Plan IMPRESSION Basilar artery thrombosis with pontine, cerebellar, occipital Stroke Acute respiratory failure Stage III a non-Hodgkin's lymphoma status post chemotherapy last year Status post brain biopsy on December 13. Atrial fibrillation. Diabetes mellitus Hypertension Hyponatremia Plan Neuro: Basilar artery thrombosis with pontine, cerebellar, occipital Stroke Locked-in state. On Keppra 500 mg b.i.d that had been started by Dr. Luna last admission. Anticoagulation for Afib and thrombosis. Warfarin on hold for trach. Bridging with lovenox which can be held the morning of trach/PEG Lortab 5/325 q6 prn pain Fentanyl 25 mcg IV q1 hour prn breakthrough pain. Repeat MRI brain 12/24: showed evolving acute infarction in both occipital lobes consistent with basilar a. thrombosis. MRI brain 12/28 -stable large brainstem infarcts and bilateral occipital infarcts EEG 12/20: Severe encephalopathy. Pulm: Acute respiratory failure Continue with CPAP as tolerated. Mechanical ventilation 12/20 #11. Family initially indicated they would like to wait a little longer before deciding about trach/PEG as they are hopeful there is a chance he can improved enough to protect his airway. However, their goals are aggressive overall and as such it appears it is in this patients best interest to proceed with trach as it does not appear he would protect his airway.Consents have been obtained. Consult general surgery for trach. Plan for Friday when able to coordinate with GI schedule in order to minimize time off anticoagulation. CV: Paroxysmal Atrial fibrillation ...Now in sinus rhythm. Monitor HR and BP keep MAP>65mmHg Echo from 12/07 showed an EF of 60% with no regional wall motion abnormalities. Intake regulation for atrial fibrillation as per above FEN/RENAL: Mild hyponatremia(resolved) Monitor renal function Is and Os and electrolyte replacement per protocol. Sodium improved with supplementation. Sodium 1 g bid for hyponatremia. Change free water flushes 200q8 to address volume status. Mild hematuria yesterday (blood tinged) urine likely due to anticoagulation. Now dark, may be related to heme. Serum bili normal. GI: On TF-Vital High protein at 60 mL per hour per nutrition recommendations. Consult GI for PEG. Plan for . Now having bowel movements. Have backed off bowel regimen. Continue colace. Rectal bag in place. ID: Fever ?secondary to stroke Acute pneumonia - L basilar opacity on CXR 12/22 Klebsiella pneumonia in sputum 12/27 12/26 CXR - opacity in left base appears most c/w atelectasis. Has been on Zosyn 12/22 #8. Klebsiella is pansensitive so d/c zosyn and start rocephin 12/29 #2. Total abx day #9. Completed 6 day course of vancomycin, stopped 12/28 based on culture data Blood culture 12/22 with CoNS 1/ bottles. No invasive lines. Lactinex bid while on abx. Microbiology: 12/27sputum culture heavy growth Klebsiella pneumonia, pansensitive. lood cultured 2 setsno growth to date out of 4 blood cultures with staph simulans (CoNS) 12/23 blood culture NGTD 12/23 - sputum -negative 12/20 - U/a negative. Heme: Monitor CBC. Oncology signed off -Dr. Whyte. Agrees with hold warfarin and bridge with lovenox pending trach. INR 1.5 so start Lovenox 1 mg/kg q12. Warfarin remains on hold. s/p brain biopsy on December 13, by Dr. Marin. Pathology c/w acute infarct without e/o lymphoma. Endo: On low dose SSI with Accu-Chek q. 6-hour for glycemic control. TSH: 1.02 GI prophylaxis with Protonix 40 mg daily (PPI home med). DVT prophylaxis with SCDs, On Lovenox full dose. ACCESS: PIV Updated family at bedside. CCT 30 mins exclusive of separately billable procedures. Fadia Orozco MD Dec 31, 2015 13:52
--- NOTE | 2015-12-31 17:45 | HHI.PR ---
Subjective Remarks afib Objective Vital Signs Date Time Temp Pulse Resp B/P Pulse Ox O2 Delivery O2 Flow Rate FiO2 12/31/15 15:20 100 35 12/31/15 14:42 16 12/31/15 14:00 86 12/31/15 12:08 100 35 12/31/15 12:00 35 12/31/15 12:00 99.3 83 16 136/79 100 12/31/15 12:00 83 12/31/15 10:00 91 12/31/15 08:00 81 12/31/15 08:00 99.5 81 14 128/71 100 12/31/15 08:00 35 12/31/15 07:10 100 35 12/31/15 06:00 85 12/31/15 04:32 100 35 12/31/15 04:00 90 12/31/15 04:00 99.8 90 16 143/77 99 12/31/15 04:00 35 12/31/15 02:00 88 12/31/15 01:00 100 35 12/31/15 00:00 82 12/31/15 00:00 98.9 82 16 134/80 99 12/31/15 00:00 35 12/30/15 23:41 100 35 12/30/15 22:35 100 35 12/30/15 22:00 85 12/30/15 20:40 100 35 12/30/15 20:00 35 12/30/15 20:00 99.1 84 16 142/82 99 12/30/15 20:00 84 12/30/15 18:00 83 I/O 12/30/15 12/30/15 12/30/15 12/31/15 12/31/15 12/31/15 07:00 15:00 23:00 07:00 15:00 23:00 Intake Total 405 ml 720 ml 686 ml 778 ml 775 ml Output Total 400 ml 300 ml 450 ml 400 ml 700 ml Balance 5 ml 420 ml 236 ml 378 ml 75 ml IV Total 85 ml 130 ml 120 ml 188 ml 175 ml Tube Feeding 320 ml 470 ml 366 ml 590 ml 600 ml Other 120 ml 200 ml Output Urine Total 400 ml 300 ml 450 ml 400 ml 700 ml # Bowel Movements 0 0 0 0 Result Diagram: 12/30/15 0334 12/31/15 0501 Objective Remarks pupil = asleep toes up bilat Assessment and Plan Assessment and Plan mrv shows basilar occlusion and mri shows sign bilat occipital and some small r cbllr acute cva the colin is slightly hyperintense almost full thickness and looks like major pontine infarct however not as bright as we usually see with infarct he could have a penumbra effect in colin so could be recoverable or just needs time to change signal plan is to keep bp up recheck mri friday if more bright then family thinking of decisions no sedatives i rec chemical code only will consider we discussed and we will keep anticoag going for now and i told her risk of bleeding into upper brain with some blood signal in original cva i dw dr vick and nitin cancino and neither felt it would be helpful to try and extract basilar clot and could kill him they both felt the colin was infarcted he could be locked in he is acting as if colin is infarcted although slight chance it could be stunned/ penumbra neuro will follow over weekend i will be back 12/25/15 i dw family at length and reviewed films with them no major change in brainstem brightness on mri inr 3.5 target 2-2.5 i think they would like to see how he does over the next 3 months and will probably go for trach if needed and peg he is locked in for the most part but full aware 12/26/15 inr 2.6 i dw son yest had some vertical eye movements to command monitor 12/27/15 locked in so he can hear all that is said family devoted and i expect peg+/-trach and they will see how he does next 6 months inr 2.4 doesnt always respond as will not awaken as quick as others 12/29/15 doing more with eyes locked in for trach and peg coumadin management per med team for that sq hep ok if need off coumadin for trach ------ 12/31/15 stable neuro for trach peg george hodge dw daughter HaleySteven MD Dec 31, 2015 17:45
[2015-12-31] MEDS: ACETAMINOPHEN/HYDROcodone 325 MG/5 MG TAB PO PRN (18:10)
--- NOTE | 2015-12-31 21:11 | MB ---
cc: AMELIE FREEMAN DATE OF CONSULTATION 12/31/15 REASON FOR CONSULTATION Need for tracheostomy. REFERRING PHYSICIAN Dr. Fadia Orozco of critical care medicine. HISTORY OF PRESENT ILLNESS The patient is a 59-year-old male who was admitted to [facility] on December 21, 2015 with altered mental status, respiratory failure. The patient has a history of non-Hodgkin's lymphoma and had altered mental status due to an acute ischemic infarct. Over the last several days the patient has had continued decrease mental status, has been unable to be extubated from the ventilator due to airway protection and need for continued respiratory support. Discussion took place with the family and further intervention as a tracheostomy and feeding tube, PEG/gastrostomy was indicated for further aggressive therapy. PEG tube and tracheostomy are planned for 01/02/2016. General surgery asked to evaluate for possible bedside tracheostomy. REVIEW OF SYSTEMS Unable to obtain. PAST MEDICAL HISTORY Obtained from record due to patient being intubated, sedated. History of non-Hodgkin's lymphoma, stage III, status post chemotherapy, atrial fibrillation, hypertension, diabetes. PAST SURGICAL HISTORY Previous left arm surgery, previous brain biopsy on December 14, 2015. ALLERGIES NO KNOWN DRUG ALLERGIES. MEDICATIONS Medications per hospital MAR. SOCIAL HISTORY Per record. No alcohol. The patient does have 1/2 pack a day tobacco user. FAMILY HISTORY Noncontributory. PHYSICAL EXAMINATION VITAL SIGNS: Temperature 98.7 degrees, heart rate 88, blood pressure 167/86, O2 saturation 100% on the ventilator. GENERAL: Patient is a comatose elderly male on the ventilator, non-responsive. HEENT: Head normocephalic. Endotracheal and orogastric tube is in place. NECK: Neck is supple. No JVD. Trachea is midline. No surgical scars. Normal anatomy no lymphadenopathy. No thyromegaly or thyroid nodules. LUNGS: Breath sounds present bilaterally on the ventilator. HEART: Regular rate and rhythm. ABDOMEN: Abdomen is soft, nondistended. EXTREMITIES: Positive for trace edema. NEUROLOGIC: The patient's GCS is 3. Comatose, on the ventilator. ASSESSMENT/PLAN The patient is a 60-year-old male with ischemic stroke and persistent decreased mental status, need for tracheostomy for further aggressive supportive therapy. I discussed the procedure in detail with the patients daughter at the bedside, answered all her questions to her satisfaction. We will be available for percutaneous tracheostomy on 01/02/2016 as requested to perform this either prior or after the PEG tube placement. Thank you very much for this consultation. MD AHSAN RuffinG/DARIANA /8:46 PM /8:55 PM
[2016-01-01] VITALS (16 sets, daily range): BP systolic 139–171; BP diastolic 74–97; PULSE 82–99; RESP 14–21; TEMP 99–100.2; O2SAT 99–100
[2016-01-01] MEDS: INSULIN NovoLIN REGULAR SUPPLEMENTAL SCALE SQ SCH ×4 (00:54→17:55)
[2016-01-01] MEDS: FREE WATER G-TUBE SCH ×3 (02:00→17:55)
[2016-01-01] MEDS: cefTRIAXone INJ 1,000 MG in SODIUM CHLORIDE 0.9% INJ 100 ML IV SCH ×2 (02:44→15:25)
[2016-01-01] MEDS: CHLORHEXIDINE GLUCONATE 2 % 1 PACK (2 CLOTHS) TOP SCH (02:45)
[2016-01-01 05:36] LABS: INTERNATIONAL NORMALIZED RATIO 1.2 RATIO; PROTHROMBIN TIME - PATIENT 12.7 SEC (9.8-11.4)
[2016-01-01 06:31] LABS: POTASSIUM 4.3 MEQ/L (3.5-5.1)
[2016-01-01] MEDS: CHLORHEXIDINE 0.12% (ORAL KIT) 15 ML CUP MT SCH ×2 (08:35→20:00)
[2016-01-01] MEDS: SENNOSIDES SYRUP 8.8 MG/5 ML CUP TUBE SCH (08:36)
[2016-01-01] MEDS: DOCUSATE SODIUM 100 MG/10 ML UDC TUBE SCH ×2 (08:36→21:57)
[2016-01-01] MEDS: levETIRAcetam 500 MG/5 ML UDC TUBE SCH ×2 (08:36→21:57)
[2016-01-01] MEDS: ENOXAPARIN SODIUM 100 MG/ML SYRINGE SQ SCH ×2 (08:36→21:57)
[2016-01-01] MEDS: LACTOBACILLUS ACIDOPHILUS 1 GM PACKET TUBE SCH ×2 (08:36→21:57)
[2016-01-01] MEDS: SODIUM CHLORIDE 0.9% FLUSH 5 ML FLUSH IVF PRN (08:36)
[2016-01-01] MEDS: PANTOPRAZOLE SODIUM 40 MG VIAL IV SCH (08:37)
--- NOTE | 2016-01-01 08:38 | HHI.GIFU ---
Subjective Remarks Resting in bed in no distress. Family at bedside. (Cielo Sorensen Sofía RHIANNA) Objective Vitals I&O Vital Signs Date Time Temp Pulse Resp B/P Pulse Ox O2 Delivery O2 Flow Rate FiO2 01/01/16 07:53 100 35 01/01/16 06:00 88 01/01/16 04:25 100 35 01/01/16 04:00 84 14 163/80 100 01/01/16 04:00 35 01/01/16 04:00 84 01/01/16 02:00 99 01/01/16 01:20 100 35 01/01/16 00:00 99.1 88 18 171/97 100 01/01/16 00:00 35 01/01/16 00:00 88 12/31/15 22:31 100 35 12/31/15 22:00 81 12/31/15 20:30 100 35 12/31/15 20:00 99.1 76 14 136/81 100 12/31/15 20:00 76 12/31/15 20:00 35 12/31/15 18:00 78 12/31/15 17:49 100 35 12/31/15 16:00 35 12/31/15 16:00 98.7 88 11 167/86 100 12/31/15 16:00 80 12/31/15 15:20 100 35 12/31/15 14:42 16 12/31/15 14:00 86 12/31/15 12:08 100 35 12/31/15 12:00 35 12/31/15 12:00 99.3 83 16 136/79 100 12/31/15 12:00 83 12/31/15 10:00 91 I/O 12/31/15 12/31/15 12/31/15 01/01/16 01/01/16 01/01/16 06:59 14:59 22:59 06:59 14:59 22:59 Intake Total 778 ml 775 ml 1031 ml 625 ml Output Total 400 ml 700 ml 500 ml 300 ml Balance 378 ml 75 ml 531 ml 325 ml IV Total 188 ml 175 ml 382 ml 140 ml Tube Feeding 590 ml 600 ml 469 ml 285 ml Other 180 ml 200 ml Output Urine Total 400 ml 700 ml 500 ml 300 ml Stool Total 0 ml # Bowel Movements 0 0 Laboratory Laboratory Tests Test 01/01/16 04:36 Prothrombin Time 12.7 Prothromb Time International 1.2 Ratio Sodium Level 135 Potassium Level 4.3 Chloride Level 101 Carbon Dioxide Level 26.0 Anion Gap 8 Blood Urea Nitrogen 18 Creatinine 0.60 Estimat Glomerular Filtration 137 Rate Random Glucose 190 Calcium Level 9.3 Date/Time Procedure Status Source Growth 12/28/15 14:36 Aerobic Blood Culture - Preliminary Resulted Blood Peripheral NO GROWTH IN 3 DAYS 12/28/15 14:36 Anaerobic Blood Culture - Preliminary Resulted Blood Peripheral NO GROWTH IN 3 DAYS 12/28/15 12:33 Gram Stain - Final Complete Sputum Endotracheal 12/28/15 12:33 Sputum Culture - Final Complete Klebsiella Pneumoniae 12/28/15 12:00 Urine Culture - Final Complete Urine Catheterized Urine NO GROWTH IN 48 HOURS. Imaging Last Impressions Brain MRI 12/29/15 0000 Signed Impressions: Service Date/Time: Tuesday, December 29, 2015 13:35 - CONCLUSION: Stable MRI showing a large brain stem infarct and bilateral occipital infarcts from a basilar artery thrombosis. Octavio Ramírez MD FACR Chest X-Ray 12/28/15 0600 Signed Impressions: Service Date/Time: December 03:42 - CONCLUSION: Stable chest x-ray under inflation and subsegmental atelectasis at the bases. Glen Gordon MD Neck Magnetic Resonance Angiography 12/22/15 1445 Signed Impressions: Service Date/Time: Tuesday, December 22, 2015 09:22 - CONCLUSION: Variant origin of the left vertebral artery from the aortic arch. No evidence of carotid stenosis. Glen Zamora MD Head Magnetic Resonance Angiography 12/22/15 1445 Signed Impressions: Service Date/Time: Tuesday, December 22, 2015 09:22 - CONCLUSION: 1. 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 2. Anterior circulation remains patent without aneurysmal disease. Bobby Gray MD Head/Brain Mag Res Venography 12/22/15 0000 Signed Impressions: Service Date/Time: Tuesday, December 22, 2015 09:22 - CONCLUSION: Normal MRV. Jonel Jones Jr., MD Head CT 12/21/15 0546 Signed Impressions: Service Date/Time: December 06:01 - CONCLUSION: 1. No focal or acute intracranial hemorrhage. 2. There is a new area of decreased density in the left occipital lobe suggestive of a recent nonhemorrhagic infarction. 3. The decreased density in the previously noted right occipital lobe has increased in size. Michael Hamilton MD Physical Exam HEENT: Normocephalic; atraumatic; no jaundice. CHEST: Scattered rhonchi. OETT to vent CARDIAC: RRR. ABDOMEN: Soft, round, nondistended, nontender; no hepatosplenomegaly; bowel sounds are present in all four quadrants. EXTREMITIES: Generalized edema. SKIN: Normal; no rash; no jaundice. 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 (Cielo Sorensen [facility]) Assessment and Plan Plan ASSESSMENT: - Dysphagia, FEN. 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 GI consulted for PEG tube placement. He He is being followed by neurology and is thought to be in a locked-in state. Class B Driver is following and has recommended Vital HP @ 60 mls/hr. Called Leanne Colon at . She reports that she is legally from the patient and that the 3 children are legally the healthcare surrogates. The children are not listed under next of kin (Fabrice Mckeon- nephew/niece) and person to notify- Leanne Colon. She provided the following numbers for the children: Xiomara , Mike Flores [phone], Ginny Flores [phone]. Spoke to cousin, ex-, 3 children at bedside Friday re: egd with peg tube placement- procedure, risks, benefits. They verbalize understanding and are agreeable, but would like proprofol to be used at decreased dose, to try to avoid hypotension. Did explain that although the b/p is closely monitored and that the medicine can be titrated during the procedure, that there is a risk of hypotension related to the medication, despite titrated dosage. They verbalize understanding but would at least dry decreased dose and would like to speak to anesthesiologist prior to procedure. They would also like for the peg to be coordinated with general surgery's tracheostomy placement. Plan is to schedule both procedures tomorrow. Spoke to Macarena, who will d/w Dr. Brandon as far as coordinating time, likely 1pm. Pt is on lovenox. PLAN: - Possible EGD with PEG tube placement on Friday- Will meet family this afternoon to further discuss procedure per their request Will need to coordinate with GS to be done at same time as tracheostomy- ?1pm - Obtain consents - On abx. - Hold lovenox after MN Friday - Supportive care - Further recommendations to follow based on results of above - Pt seen and examined by Dr. Becerril and myself and this note is written on her behalf (Cielo Sorensen) Physician Comments seen, examined agree with above discussed with family egd/peg in am risk , benefits discussed (Denita Becerril MD) Cielo Sorensen Jan 01, 2016 08:38 Denita Becerril MD Jan 01, 2016 17:31
[2016-01-01] MEDS: SODIUM CHLORIDE 1 GRAM TAB TUBE SCH ×2 (08:45→21:57)
--- NOTE | 2016-01-01 15:47 | HHI.PR ---
Subjective Subjective Notes Intubated; family at bedside Objective Vitals/I&O Vital Signs Date Time Temp Pulse Resp B/P Pulse Ox O2 Delivery O2 Flow Rate FiO2 01/01/16 13:38 99 35 01/01/16 06:00 88 01/01/16 04:00 14 163/80 01/01/16 00:00 99.1 Labs Laboratory Tests Test 01/01/16 04:36 Prothrombin Time 12.7 Prothromb Time International 1.2 Ratio Sodium Level 135 Potassium Level 4.3 Chloride Level 101 Carbon Dioxide Level 26.0 Anion Gap 8 Blood Urea Nitrogen 18 Creatinine 0.60 Estimat Glomerular Filtration 137 Rate Random Glucose 190 Calcium Level 9.3 Date/Time Procedure Status Source Growth 12/28/15 14:36 Aerobic Blood Culture - Preliminary Resulted Blood Peripheral NO GROWTH IN 4 DAYS 12/28/15 14:36 Anaerobic Blood Culture - Preliminary Resulted Blood Peripheral NO GROWTH IN 4 DAYS 12/28/15 12:33 Gram Stain - Final Complete Sputum Endotracheal 12/28/15 12:33 Sputum Culture - Final Complete Klebsiella Pneumoniae 12/28/15 12:00 Urine Culture - Final Complete Urine Catheterized Urine NO GROWTH IN 48 HOURS. Cardiovascular: Regular Lungs: Clear Abdomen: Non-distended, Non-tender Extremities: No edema Narrative Exam Intubated A/P Assessment and Plan 60 year old male with AMS and resp distress; s/p acute ischemic infarct; hx of non-Hodgkin's lymphoma -Plan for trach tomorrow at 1300 at bedside -Obtain consents -Hold anticoagulation -NPO after MN The exam, history, and the medical decision-making described in the above note were completed with the assistance of the mid-level provider. I reviewed and agree with the findings presented. I attest that I had a [id number] encounter with the patient on the same day, and personally performed and documented my assessment and findings in the medical record. Macarena Shah Jan 01, 2016 15:47 Gilberto Rodrigez MD Feb 09, 2016 11:36
--- NOTE | 2016-01-01 17:42 | HHI.CCPN ---
Subjective Remarks/Hospital Course The patient is a 59-year-old male with past medical history of paroxysmal atrial fibrillation, hypertension, stage III a non-Hodgkin's lymphoma status post a chemotherapy last year. He received Rituxan CHOP. He presented to [facility] emergency department with altered mental status. Most of the history was obtained from reviewing medical records as the patient is poor historian. When he woke up of 4 o'clock this morning the patient had some right facial droop associated with headaches. Due to altered mental status CT scan of the brain was obtained which showed no focal or acute intracranial hemorrhage. However, there is an new area of decreased density in the left occipital lobe, suggestive of recent non hemorrhagic infarction and the decreased density in the previously noted right occipital lobe has increased in size. The patient was recently admitted back on December 06 with similar presentation and he had a right occipital juan jose hole brain biopsy by Dr. Marin on December 13. The pathology results pending. The patient became the patient noted to have very sonorous respirations and can and follow any commands in addition he was obtunded. He was subsequently intubated by the emergency department physician and MRI of the brain was obtained which showed a new area of restricted diffusion within the left occipital lobe suggesting acute infarction. No evidence of any acute hemorrhage, midline shift or a fluid collection. When seen the patient is sedated with Diprivan and on full mechanical ventilation. ABG post intubation showed a pH of 7.41, CO2 35, pAO2 100, bicarb of 22, saturation 93% on assist control ventilation rate of 14, tidal volume 550, PEEP five, FIO2 of 40%. Chest x-ray Post intubation showed ET tube above the geno in no acute cardiopulmonary process. His last echocardiogram was obtained in January of last year which showed an EF of 60% with no regional wall motion abnormalities. EKG on arrival showed A fib with RVR at rate of 114 beats per minute. The patient was given Cardizem 20 mg IV push in the emergency department and was initially placed on Cardizem drip. However, now is off. 12/21 No events overnight. Sedated with Diprivan and intubated. Afebrile. For MRA brain , carotids and MRV brain today . 12/22 Patient remains intubated, off sedation. T: 100.1 at midnight. 12/23 No events overnight. Remains off sedation. Had T: 101.3 at 4am. Withdraws to pain. 12/24 Patient remains intubated, on no sedation, T: 100.3 last night. For repeat MRI brain today 12/25 No events overnight. Tolerated CPAP for 4-5 hrs yesterday. T:100.1. 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 12/26 Tolerating CPAP. Temp max 100.1. Opens eyes to voice, reportedly has been blinking to command but isn't doing so currently even when family encouraging him. 12/27 Continues to tolerate CPAP. Follows commands via ocular movements. Weak withdraw LUE noxious stimuli. Biopsy brain lesion appears c/w acute infarct, no lymphoma. 12/28 Tolerating CPAP 04/24. Family desires trach and warfarin placed on hold. MRI today per neurology. GNR in sputum. 12/29 Tolerating tube feeds. INR 2.2. sputum culture with pansensitive klebsiella. 12/30 No neuro change. Continues to tolerate CPAP. Subjective: 12/31 General surgery and GI planning trach/PEG tomorrow. Has low grade temp 100.2. Objective - Vital Signs Date Time Temp Pulse Resp B/P Pulse Ox O2 Delivery O2 Flow Rate FiO2 01/01/16 17:03 100 35 01/01/16 16:00 100.1 87 18 149/79 I/O 12/31/15 12/31/15 01/01/16 08:00 16:00 00:00 Intake Total 778 ml 775 ml 1031 ml Output Total 400 ml 700 ml 500 ml Balance 378 ml 75 ml 531 ml Result Diagram: 12/30/15 0334 01/01/16 0436 Other Results Laboratory Tests Test 12/26/15 03:51 White Blood Count 6.2 TH/MM3 Red Blood Count 4.54 MIL/MM3 Hemoglobin 12.0 GM/DL Hematocrit 37.7 % Mean Corpuscular Volume 83.0 FL Mean Corpuscular Hemoglobin 26.5 PG Mean Corpuscular Hemoglobin 31.9 % Concent Red Cell Distribution Width 14.3 % Platelet Count 142 TH/MM3 Mean Platelet Volume 9.4 FL Neutrophils (%) (Auto) 67.0 % Lymphocytes (%) (Auto) 16.7 % Monocytes (%) (Auto) 10.6 % Eosinophils (%) (Auto) 5.3 % Basophils (%) (Auto) 0.4 % Neutrophils # (Auto) 4.1 TH/MM3 Lymphocytes # (Auto) 1.0 TH/MM3 Monocytes # (Auto) 0.7 TH/MM3 Eosinophils # (Auto) 0.3 TH/MM3 Basophils # (Auto) 0.0 TH/MM3 CBC Comment DIFF FINAL Differential Comment Prothrombin Time 28.5 SEC Prothromb Time International 2.6 RATIO Ratio Sodium Level 133 MEQ/L Potassium Level 3.9 MEQ/L Chloride Level 97 MEQ/L Carbon Dioxide Level 27.1 MEQ/L Anion Gap 9 MEQ/L Blood Urea Nitrogen 17 MG/DL Creatinine 0.67 MG/DL Estimat Glomerular Filtration 121 ML/MIN Rate Random Glucose 175 MG/DL Calcium Level 8.3 MG/DL Magnesium Level 2.0 MG/DL Imaging Last Impressions Chest X-Ray 12/23/15 0000 Signed Impressions: Service Date/Time: Wednesday, December 23, 2015 08:32 - CONCLUSION: Left basilar opacity could be atelectasis or minimal infiltrate. Mikie Vargas MD Neck Magnetic Resonance Angiography 12/22/15 1445 Signed Impressions: Service Date/Time: Tuesday, December 22, 2015 09:22 - CONCLUSION: Variant origin of the left vertebral artery from the aortic arch. No evidence of carotid stenosis. Glen Zamora MD Head Magnetic Resonance Angiography 12/22/15 1445 Signed Impressions: Service Date/Time: Tuesday, December 22, 2015 09:22 - CONCLUSION: 1. 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 2. Anterior circulation remains patent without aneurysmal disease. Bobby Gray MD Brain MRI 12/22/15 1339 Signed Impressions: Service Date/Time: Tuesday, December 22, 2015 14:37 - CONCLUSION: Worsening brain appearance with abnormal signal developing in large portions of the brainstem. Glen Zamora MD ADDENDUM: Upon further review of images there is signal identified within the basilar artery consistent with thrombosis. Jonel Jones Jr., MD Head/Brain Mag Res Venography 12/22/15 0000 Signed Impressions: Service Date/Time: Tuesday, December 22, 2015 09:22 - CONCLUSION: Normal MRV. Jonel Jones Jr., MD Head CT 12/21/15 0546 Signed Impressions: Service Date/Time: December 06:01 - CONCLUSION: 1. No focal or acute intracranial hemorrhage. 2. There is a new area of decreased density in the left occipital lobe suggestive of a recent nonhemorrhagic infarction. 3. The decreased density in the previously noted right occipital lobe has increased in size. Michael Hamilton MD Objective Remarks Vital HP 60 mL per hour. GENERAL: Well-nourished, well-developed patient who is orotracheally intubated. On no continuous sedation. SKIN: Warm and dry, well perfused. HEAD: Normocephalic. EYES: No scleral icterus. No injection or drainage. NECK: Supple, trachea midline. No JVD or lymphadenopathy. Orally intubated CARDIOVASCULAR: Regular rate and rhythm without murmurs, gallops, or rubs, currently sinus on monitor with rate in 80s. RESPIRATORY: Breath sounds equal bilaterally. No accessory muscle use. No w/r/r GASTROINTESTINAL: Abdomen soft, non-tender, nondistended. Bowel sounds present. : Arevalo in place with skip urine MUSCULOSKELETAL: No edema. NEURO: Eyes open to voice and he looks up and down and to the left to command. ? R gaze palsy. Weakly Withdraws BUE to noxious stimuli +cough reflex, + spontaneous respirations + spontaneous swallowing. Babinski upgoing on L, Babinski equivocal on R. A/P Assessment and Plan IMPRESSION Basilar artery thrombosis with pontine, cerebellar, occipital Stroke Acute respiratory failure Stage III a non-Hodgkin's lymphoma status post chemotherapy last year Status post brain biopsy on December 13. Atrial fibrillation. Diabetes mellitus Hypertension Hyponatremia Plan Neuro: Basilar artery thrombosis with pontine, cerebellar, occipital Stroke Locked-in state. Follows commands with ocular movements. On Keppra 500 mg b.i.d that had been started by Dr. Luna last admission. Anticoagulation for Afib and thrombosis. Warfarin on hold for trach. Bridging with lovenox which can be held the morning of trach/PEG. Warfarin can be resumed post trach/peg. Lortab 5/325 q6 prn pain Fentanyl 25 mcg IV q1 hour prn breakthrough pain. Repeat MRI brain 12/24: showed evolving acute infarction in both occipital lobes consistent with basilar a. thrombosis. MRI brain 12/28 -stable large brainstem infarcts and bilateral occipital infarcts EEG 12/20: Severe encephalopathy. Pulm: Acute respiratory failure Has been tolerating CPAP 04/24 for several days but requires trach for airway protection. Mechanical ventilation 12/20 #12. Plan for trach tomorrow. Then can do CPAP trials and transition to Tpiece as tolerated. CV: Paroxysmal Atrial fibrillation ...Now in sinus rhythm. Monitor HR and BP keep MAP>65mmHg Echo from 12/07 showed an EF of 60% with no regional wall motion abnormalities. Anticoagulation for atrial fibrillation as per above Monitor BP closely during trach PEG to avoid hypotension. FEN/RENAL: Mild hyponatremia(improved) Monitor renal function Is and Os and electrolyte replacement per protocol. Sodium improved with supplementation. Sodium 1 g bid for hyponatremia. Was given free water flushes to address volume status, will hold. Will place on NS @ 50/hr while npo. Mild hematuria (blood tinged) urine likely due to anticoagulation, Now improved. GI: On TF-Vital High protein at 60 mL per hour per nutrition recommendations. Consult GI for PEG, plan tomorrow. Now having bowel movements. Have backed off bowel regimen. Continue colace. Rectal bag in place. ID: Fever ?secondary to stroke Acute pneumonia - (resolving) L basilar opacity on CXR 12/22 Klebsiella pneumonia in sputum 12/27 12/26 CXR - opacity in left base appears most c/w atelectasis. Has been on Zosyn 12/22 #8. Klebsiella is pansensitive so d/c zosyn and start rocephin 12/29 #3. Total abx day #10. Completed 6 day course of vancomycin, stopped 12/28 based on culture data Low grade temps persist. May be secondary to stroke as there is no clinical change. Will send u/a and sputum culture. Followup CXR tomorrow after trach. Blood culture 12/22 with CoNS / bottles. No invasive lines. Lactinex bid while on abx. Microbiology: 12/27sputum culture heavy growth Klebsiella pneumonia, pansensitive. lood cultured 2 setsno growth to date out of 4 blood cultures with staph simulans (CoNS) 12/23 blood culture NGTD 12/23 - sputum -negative 12/20 - U/a negative. Heme: Monitor CBC. Oncology signed off -Dr. Whyte. Lovenox 1 mg/kg q12. Warfarin remains on hold, can be resumed after trach peg to target INR 2-3. s/p brain biopsy on December 13, by Dr. Marin. Pathology c/w acute infarct without e/o lymphoma. Endo: On low dose SSI with Accu-Chek q. 6-hour for glycemic control. TSH: 1.02 GI prophylaxis with Protonix 40 mg daily (PPI home med). DVT prophylaxis with SCDs, On Lovenox full dose. ACCESS: PIV Updated family at bedside. Discussed with General surgery and GI. CCT 30 mins exclusive of separately billable procedures. Fadia Orozco MD Jan 01, 2016 17:42
[2016-01-01 19:23] LABS: BLOOD, URINE MOD (NEG); GLUCOSE,URINE NEG (NEG); KETONE, URINE NEG (NEG); NITRITE,URINE NEG (NEG); PH, URINE 6.5 (5.0-8.5); URINE COLOR YELLOW (YELLW/STRAW)
[2016-01-01 19:25] LABS: COMMENT (UR) CATH-CULTURE IND; CULTURE IF INDICATED CATH CULTURE IND
[2016-01-02] VITALS (22 sets, daily range): BP systolic 111–179; BP diastolic 69–96; PULSE 66–149; RESP 14–24; TEMP 98.6–100.9; O2SAT 92–100
[2016-01-02] MEDS: INSULIN NovoLIN REGULAR SUPPLEMENTAL SCALE SQ SCH ×4 (00:40→17:47)
[2016-01-02] MEDS: SODIUM CHLOR 0.9% 1000 ML INJ 1,000 ML IV SCH ×2 (00:40→12:26)
[2016-01-02] MEDS: cefTRIAXone INJ 1,000 MG in SODIUM CHLORIDE 0.9% INJ 100 ML IV SCH ×2 (03:50→14:23)
[2016-01-02] MEDS: CHLORHEXIDINE GLUCONATE 2 % 1 PACK (2 CLOTHS) TOP SCH (03:50)
[2016-01-02 05:24] LABS: AUTOMATED NEUTROPHIL # 2.3 TH/MM3 (1.8-7.7); BASOPHIL % 1.2 % (0.0-2.0); EOSINOPHIL # 0.3 TH/MM3 (0-0.4); EOSINOPHIL % 6.3 % (0.0-4.0); HEMATOCRIT 31.4 % (39.0-51.0); HEMO FLAGS DIFF FINAL; LYMPH % 28.6 % (9.0-44.0); LYMPHOCYTE # 1.2 TH/MM3 (1.0-4.8); MEAN CELL VOLUME 82.9 FL (80.0-100.0); MEAN CORPUSCULAR HEMOGLOBIN 26.9 PG (27.0-34.0); MEAN CORPUSCULAR HGB CONC 32.5 % (32.0-36.0); MONO % 7.1 % (0.0-8.0); NEUT % 56.8 % (16.0-70.0); PLATELET COUNT 195 TH/MM3 (150-450); RED BLOOD COUNT 3.78 MIL/MM3 (4.50-5.90); RED CELL DISTRIBUTION WIDTH 14.3 % (11.6-17.2); WHITE BLOOD COUNT 4.1 TH/MM3 (4.0-11.0)
[2016-01-02 05:44] LABS: BICARBONATE 27.6 MEQ/L (21.0-32.0); POTASSIUM 3.8 MEQ/L (3.5-5.1)
[2016-01-02 05:52] LABS: INTERNATIONAL NORMALIZED RATIO 1.1 RATIO; PROTHROMBIN TIME - PATIENT 11.4 SEC (9.8-11.4)
[2016-01-02] MEDS: levETIRAcetam 500 MG/5 ML UDC TUBE SCH ×2 (08:39→20:31)
[2016-01-02] MEDS: SENNOSIDES SYRUP 8.8 MG/5 ML CUP TUBE SCH (08:39)
[2016-01-02] MEDS: DOCUSATE SODIUM 100 MG/10 ML UDC TUBE SCH ×2 (08:39→20:31)
[2016-01-02] MEDS: PANTOPRAZOLE SODIUM 40 MG VIAL IV SCH (08:39)
[2016-01-02] MEDS: LACTOBACILLUS ACIDOPHILUS 1 GM PACKET TUBE SCH ×2 (08:39→20:31)
[2016-01-02] MEDS: SODIUM CHLORIDE 1 GRAM TAB TUBE SCH ×2 (08:39→20:31)
[2016-01-02] MEDS: CHLORHEXIDINE 0.12% (ORAL KIT) 15 ML CUP MT SCH ×2 (08:41→20:31)
--- NOTE | 2016-01-02 09:08 | HHI.CCPN ---
Subjective Remarks/Hospital Course 59year-old male with past medical history of paroxysmal atrial fibrillation, hypertension, stage IIIa non-Hodgkin's lymphoma (s/p chemotherapy with Rituxan, CHOP 2014) presented to [facility] emergency department on 12/20 with altered mental status. When he woke up of 4 o'clock, the patient had some right facial droop associated with headaches. CT scan of the brain showed no focal or acute intracranial hemorrhage. However, there is an new area of decreased density in the left occipital lobe, suggestive of recent non hemorrhagic infarction and a decreased density in the previously noted right occipital lobe which had increased in size. The patient was recently admitted on December 06 with similar presentation and he had a right occipital juan jose hole brain biopsy done by Dr. Marin on December 13. The pathology results showed acute infarction without evidence of lymphoma. On this admission, the patient became obtunded, had sonorous respirations and can would not follow any commands. He was subsequently intubated by the emergency department physician. MRI of the brain was obtained which showed a new area of restricted diffusion within the left occipital lobe suggesting acute infarction. EKG on arrival showed A-fib with RVR at rate of 114 beats per minute. Pertinent ICU Coarse: 12/21: No events overnight. Sedated with Diprivan and intubated. For MRA brain, carotids and MRV brain today . 12/22: Patient remains intubated, off sedation. 12/23: No events overnight. Remains off sedation. Withdraws to pain. 12/24: Remains intubated, on no sedation. For repeat MRI brain today 12/25: Tolerated PSV for 4-5 hour yesterday. 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 12/26: Tolerating PSV. Opens eyes to voice, reportedly has been blinking to command but isn't doing so currently even when family encouraging him. 12/27: Continues to tolerate PSV. Follows commands via ocular movements. Weak withdraw LUE noxious stimuli. 12/28: Tolerating PSV 04/24. Family desires trach - warfarin placed on hold. MRI today per neurology. 12/29: Tolerating tube feeds. INR 2.2. Sputum culture with pansensitive klebsiella. 12/30: No neuro change. Continues to tolerate PSV 12/31: General surgery and GI planning trach / PEG tomorrow. Has low grade temp 100.2. 01/01: On full vent support. No significant neurologic changes. Awaiting Trach and PEG today. Objective - Vital Signs Date Time Temp Pulse Resp B/P Pulse Ox O2 Delivery O2 Flow Rate FiO2 01/02/16 08:01 100 35 01/02/16 06:00 78 01/02/16 04:00 99.7 16 149/85 I/O 01/01/16 01/01/16 01/01/16 07:59 15:59 23:59 Intake Total 625 ml 700 ml 890 ml Output Total 300 ml 400 ml 450 ml Balance 325 ml 300 ml 440 ml Result Diagram: 01/02/1644601/02/16446 Objective Remarks GENERAL: Critically ill Well-nourished, well-developed male lying in bed on mechanical ventilation. SKIN: Warm and dry, well perfused. HEENT: Orally intubated. Normocephalic. No scleral icterus. NECK: Trachea midline. No JVD CARDIOVASCULAR: Regular rate and rhythm without murmurs RESPIRATORY: Breath sounds equal bilaterally. GASTROINTESTINAL: Abdomen soft, nondistended. Bowel sounds present. MUSCULOSKELETAL: Palpable pulses with warm periphery. No edema. NEURO: No spontaneous eye openings today. (Previously Eyes open to voice and he looks up and down and to the left to command). Right facial droop. Weakly Withdraws all 4 extremities. A/P Assessment and Plan 1) Neuro / Psych Acute Pontine and cerebellar CVA with Basilar artery thrombosis Status post brain biopsy on December 13 - acute infarct, no evidence of lymphoma -- MRA 12/21 - bilateral vertebral artery thrombosis with complete occlusion of basilar system -- MRI brain 12/24 - evolving acute infarction in both occipital lobes consistent with basilar artery thrombosis -- MRI brain 12/28 - stable large brainstem infarcts and bilateral occipital infarcts -- EEG 12/20: Severe encephalopathy. -- Pt appears to be in "Locked-in" state - Attempts to follow commands with ocular movements. -- Continue Keppra 500 mg q 12 per tube - started by Dr. Luna last admission. -- Anticoagulation for A-fib and thrombosis on hold today for trach and PEG - Will resume bridging with Lovenox and Coumadin in a.m. after trach/PEG. 2) CVS Paroxysmal Atrial fibrillation - currently in sinus rhythm. Hx of Hypertension -- HR and BP stable -- 2d echo from 12/07 - EF of 60% with no regional wall motion abnormalities. -- Anticoagulation for atrial fibrillation as per above 3) Pulmonary Acute respiratory failure secondary to CVA -- Pt has been tolerating PSV for several days but requires trach for airway protection. -- On mechanical ventilation since 12/20 - Plan for trach today -- Continue DuoNeb q 4 as needed -- CXR 12/27 - without obvious infiltrate 4) GI / Nutrition Mild protein calorie malnutrition -- Tube feeds (High Vital) on hold for PEG today -- Continue bowel regimen with Colace q 12 and Senna q day -- LFTs within normal limits 12/29 5) Renal / Metabolic Mild hyponatremia -- Bun and creatinine stable with good urine output -- Arevalo catheter in place for accurate I/Os in critically ill patient -- Continue iv fluids (NS) at 50 cc/hr while NPO 6) Endocrine Hx of Diabetes mellitus -- Continue low dose SSI q 6 hours for glycemic control -- TSH within normal limits 12/22 7) Heme Stage III a non-Hodgkin's lymphoma - s/p chemotherapy 2014 Anemia -- s/p brain biopsy on December 13, by Dr. Marin - Pathology consistent with acute infarct without evidence of lymphoma -- Seen by Oncology, Dr. Whyte, who has signed off for current admission as no active oncology issues -- Remains on anti-coagulation with Lovenox 1 mg/kg q12 - currently on hold today for Trach / PEG - Warfarin remains on hold, can be resumed after Trach / PEG to target INR 2 -3. 8) ID Sepsis secondary to acute pneumonia -- CXR on 12/22 with Left basilar opacity -- Pertinent cultures: - Sputum 12/23 - negative - Sputum 12/27 - willams sensitive Klebsiella - Blood 12/22 - 07/24 Coag. Negative Staph (S. Simulans) - Blood 12/23 and 12/27 - negative - Urine 12/27 - negative - Sputum and Urine 12/31 - pending -- s/p Zosyn (12/22 - 12/29) and now on Rocephin 1 q 12 (12/29 - present): Antibiotic day # 11 -- Completed 6 day course of vancomycin, stopped 12/28 based on culture data -- Low grade temps persist. May be secondary to stroke as there is no clinical change - Will send u/a and sputum culture - see above - Followup CXR today after trach. 9) Prophylaxis: GI - iv Protonix 40 mg daily (PPI home med) DVT - SCDs, On Lovenox full dose - currently on hold for Trach and PEG 10) IV Access: Peripheral iv Critical care time is 45 minutes which excludes all billable procedures. Eliazar Patino MD Jan 02, 2016 09:08 Eliazar Patino MD Jan 02, 2016 09:08 Microbiology: 12/27sputum culture heavy growth Klebsiella pneumonia, pansensitive. lood cultured 2 setsno growth to date out of 4 blood cultures with staph simulans (CoNS) 12/23 blood culture NGTD 12/23 - sputum -negative 12/20 - U/a negative. 9) Prophylaxis: GI - Protonix 40 mg daily (PPI home med) DVT prophylaxis with SCDs, On Lovenox full dose. 10) IV Access: PIV Updated family at bedside. Discussed with General surgery and GI. CCT 30 mins exclusive of separately billable procedures. Eliazar Patino MD Jan 02, 2016 09:08
--- NOTE | 2016-01-02 16:53 | RADRPT ---
EXAM DATE/TIME: 01/02/2016 16:30 [facility] COMPARISON: CHEST SINGLE AP, December 28, 2015, 3:42. INDICATIONS : Post Trach Placement MEDICAL HISTORY : Hypertension. Diabetes mellitus type II. SURGICAL HISTORY : ENCOUNTER: Subsequent ACUITY: 2 weeks PAIN SCORE: Non-responsive. LOCATION: Bilateral chest FINDINGS: Endotracheal tube has been removed and replaced with a tracheostomy tube. The tracheostomy tube appea rs to be in good position. Minimal airspace disease remains evident in both lung bases. Heart remains normal in size. Nasogastric tube has been removed. CONCLUSION: Status post tracheostomy tube placement. Persistent mild airspace disease in both bases. Ernesto Kulkarni MD on January 02, 2016 at 16:48 Board Certified Radiologist. This report was verified electronically.
[2016-01-03] VITALS (18 sets, daily range): BP systolic 101–134; BP diastolic 57–88; PULSE 97–114; RESP 15–24; TEMP 100.2–101.5; O2SAT 96–100
[2016-01-03] MEDS: INSULIN NovoLIN REGULAR SUPPLEMENTAL SCALE SQ SCH ×4 (01:00→17:36)
[2016-01-03] MEDS: CHLORHEXIDINE GLUCONATE 2 % 1 PACK (2 CLOTHS) TOP SCH (02:47)
[2016-01-03] MEDS: cefTRIAXone INJ 1,000 MG in SODIUM CHLORIDE 0.9% INJ 100 ML IV SCH (02:47)
[2016-01-03] MEDS: ACETAMINOPHEN 650 MG/20.3 ML UDC TUBE PRN ×3 (04:14→20:09)
[2016-01-03 05:17] LABS: HEMATOCRIT 29.5 % (39.0-51.0); MEAN CELL VOLUME 83.9 FL (80.0-100.0); MEAN CORPUSCULAR HEMOGLOBIN 26.7 PG (27.0-34.0); MEAN CORPUSCULAR HGB CONC 31.8 % (32.0-36.0); PLATELET COUNT 204 TH/MM3 (150-450); RED BLOOD COUNT 3.52 MIL/MM3 (4.50-5.90); RED CELL DISTRIBUTION WIDTH 14.2 % (11.6-17.2); REVIEW FLAG FINAL
[2016-01-03 05:20] LABS: APTT (PATIENT) 27.5 SEC (22.6-28.8); INTERNATIONAL NORMALIZED RATIO 1.1 RATIO; PROTHROMBIN TIME - PATIENT 11.4 SEC (9.8-11.4)
[2016-01-03 05:40] LABS: BICARBONATE 25.9 MEQ/L (21.0-32.0); MAGNESIUM 1.8 MG/DL (1.5-2.5); POTASSIUM 4.1 MEQ/L (3.5-5.1)
[2016-01-03] MEDS: DOCUSATE SODIUM 100 MG/10 ML UDC TUBE SCH ×2 (07:38→20:52)
[2016-01-03] MEDS: SENNOSIDES SYRUP 8.8 MG/5 ML CUP TUBE SCH (07:38)
[2016-01-03] MEDS: LACTOBACILLUS ACIDOPHILUS 1 GM PACKET TUBE SCH ×2 (07:38→20:52)
[2016-01-03] MEDS: CHLORHEXIDINE 0.12% (ORAL KIT) 15 ML CUP MT SCH ×2 (07:38→20:08)
[2016-01-03] MEDS: levETIRAcetam 500 MG/5 ML UDC TUBE SCH ×2 (07:39→20:52)
[2016-01-03] MEDS: SODIUM CHLORIDE 0.9% FLUSH 5 ML FLUSH IVF PRN ×2 (07:39→20:09)
[2016-01-03] MEDS: SODIUM CHLORIDE 1 GRAM TAB TUBE SCH (07:39)
[2016-01-03] MEDS: PANTOPRAZOLE SODIUM 40 MG VIAL IV SCH (07:39)
--- NOTE | 2016-01-03 08:53 | HHI.CCPN ---
Subjective Remarks/Hospital Course 59year-old male with past medical history of paroxysmal atrial fibrillation, hypertension, stage IIIa non-Hodgkin's lymphoma (s/p chemotherapy with Rituxan, [facility] 2014) presented to [facility] emergency department on 12/20 with altered mental status. When he woke up of 4 o'clock, the patient had some right facial droop associated with headaches. CT scan of the brain showed no focal or acute intracranial hemorrhage. However, there is an new area of decreased density in the left occipital lobe, suggestive of recent non hemorrhagic infarction and a decreased density in the previously noted right occipital lobe which had increased in size. The patient was recently admitted on December 06 with similar presentation and he had a right occipital juan jose hole brain biopsy done by Dr. Marin on December 13. The pathology results showed acute infarction without evidence of lymphoma. On this admission, the patient became obtunded, had sonorous respirations and can would not follow any commands. He was subsequently intubated by the emergency department physician. MRI of the brain was obtained which showed a new area of restricted diffusion within the left occipital lobe suggesting acute infarction. EKG on arrival showed A-fib with RVR at rate of 114 beats per minute. Pertinent ICU Coarse: 12/21: No events overnight. Sedated with Diprivan and intubated. For MRA brain, carotids and MRV brain today . 12/22: Patient remains intubated, off sedation. 12/23: No events overnight. Remains off sedation. Withdraws to pain. 12/24: Remains intubated, on no sedation. For repeat MRI brain today 12/25: Tolerated PSV for 4-5 hour yesterday. 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 12/26: Tolerating PSV. Opens eyes to voice, reportedly has been blinking to command but isn't doing so currently even when family encouraging him. 12/27: Continues to tolerate PSV. Follows commands via ocular movements. Weak withdraw LUE noxious stimuli. 12/28: Tolerating PSV 04/24. Family desires trach - warfarin placed on hold. MRI today per neurology. 12/29: Tolerating tube feeds. INR 2.2. Sputum culture with pansensitive klebsiella. 12/30: No neuro change. Continues to tolerate PSV 12/31: General surgery and GI planning trach / PEG tomorrow. Has low grade temp 100.2. 01/01: On full vent support. No significant neurologic changes. s/p bedside Trach and PEG. 01/02: Resuming PSV trials. Restart tube feeds. Objective - Vital Signs Date Time Temp Pulse Resp B/P Pulse Ox O2 Delivery O2 Flow Rate FiO2 01/03/16 08:00 100.7 99 15 122/77 99 01/03/16 08:00 35 I/O 01/02/16 01/02/16 01/03/16 08:00 16:00 00:00 Intake Total 307 ml 771 ml 694 ml Output Total 400 ml 450 ml 300 ml Balance -93 ml 321 ml 394 ml Result Diagram: 01/03/1640901/03/16409 Objective Remarks GENERAL: Critically ill Well-nourished, well-developed male lying in bed on mechanical ventilation via tracheostomy SKIN: Warm and dry, well perfused HEENT: Normocephalic. No scleral icterus. Right facial droop NECK: Trachea midline. No JVD. Tracheostomy site intact CARDIOVASCULAR: Regular rate and rhythm without any appreciable murmurs RESPIRATORY: Coarse breath sounds anteriorly with good air entry bilaterally GASTROINTESTINAL: Abdomen soft, nondistended. Bowel sounds present. PEG site intact MUSCULOSKELETAL: Palpable pulses with warm periphery. No edema NEURO: No spontaneous eye openings today. (Previously Eyes open to voice and he looks up and down and to the left to command). Weakly Withdraws all 4 extremities. 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 -- Pt appears to be in "Locked-in" state - Previously attempted to follow commands with ocular movements. -- Continue Keppra 500 mg q 12 per tube - started by Dr. Luna last admission. -- Anticoagulation for A-fib and thrombosis on hold s/p for trach and PEG 01/01 - Will resume bridging with Lovenox and Coumadin in a.m. (01/03) 2) CVS Paroxysmal Atrial fibrillation - currently in sinus rhythm. Hx of Hypertension -- HR and BP stable -- 2d echo from 12/07 - EF of 60% with no regional wall motion abnormalities. -- Anticoagulation for atrial fibrillation to resume in a.m. 3) Pulmonary Acute respiratory failure secondary to CVA -- s/p bedside percutaneous trach 01/01 -- Tolerating PSV for several days - will initiate trach collar trials as tolerated -- Continue DuoNeb q 4 as needed -- CXR 01/01 - s/p trach; minimal air space disease without obvious infiltrate 4) GI / Nutrition Mild protein calorie malnutrition -- s/p PEG 01/01 -- Will resume tube feeds (Jevity) with goal of 50 cc/hr -- Continue bowel regimen with Colace q 12 and Senna q day -- LFTs within normal limits 12/29 5) Renal / Metabolic Mild hyponatremia - resolved -- Bun and creatinine stable with good urine output -- Arevalo catheter in place for accurate I/Os in critically ill patient -- Will d/c fluids (NS) at 50 cc/hr once tube feeds start 6) Endocrine Hx of Diabetes mellitus -- Continue low dose SSI q 6 hours for glycemic control -- TSH within normal limits 12/22 7) Heme Stage III a non-Hodgkin's lymphoma - s/p chemotherapy 2015 Anemia -- s/p brain biopsy on December 13, by Neurosurgery, Dr. Marin - Pathology consistent with acute infarct without evidence of lymphoma -- Seen by Oncology, Dr. Whyte, who has signed off for current admission as no active oncology issues -- Resume anti-coagulation with Lovenox 1 mg/kg q12 - in a.m. s/p Trach / PEG - Warfarin remains on hold, can be resumed after Trach / PEG to target INR 2 -3. 8) ID Sepsis secondary to acute pneumonia -- CXR on 12/22 with Left basilar opacity -- Pertinent cultures: - Sputum 12/23 - negative - Sputum 12/27 - willams sensitive Klebsiella - Blood 12/22 - 07/24 Coag. Negative Staph (S. Simulans) - Blood 12/23 and 12/27 - negative - Urine 12/27 - negative - Sputum and Urine 12/31 - pending -- s/p Zosyn (12/22 - 12/29) and s/p Rocephin (12/29 - 01/02) for total of 12 days of antibiotic therapy -- s/p 6 day course of vancomycin, stopped 12/28 based on culture data 9) Prophylaxis: GI - oral Zantac q 12 hours DVT - SCDs, On Lovenox full dose - currently on hold s/p Trach and PEG 10) IV Access: Peripheral iv Critical care time is 40 minutes which excludes all billable procedures. Eliazar Patino MD Jan 03, 2016 08:53 Eliazar Patino MD Jan 03, 2016 08:53
[2016-01-03] MEDS: SODIUM CHLOR 0.9% 1000 ML INJ 1,000 ML IV SCH (09:26)
--- NOTE | 2016-01-03 10:52 | MP ---
cc: JENNY SOLITARIO M.D. DATE OF SURGERY: 01/02/2016 PREOPERATIVE DIAGNOSIS 1. Status post stroke. 2. Ventilator dependence. POSTOPERATIVE DIAGNOSIS 1. Status post stroke. 2. Ventilator dependence. PROCEDURE PERFORMED #8 percutaneous dilatational tracheostomy. SURGEON Jenny Solitario SPINNERET CLEANER Wendy , MEDICAL RECORD CODER ANESTHESIA General per Dr. Langston. COMPLICATIONS None. INDICATIONS FOR PROCEDURE Mr. Flores is an unfortunate gentleman who has had a stroke. He has remained in a decreased neurologic state. He is ventilator dependent. Tracheostomy and feeding tube were requested by the die cutter in consultation with the family who wanted continuous and ongoing care. The risks and benefits of tracheostomy was discussed with the and she was agreeable. DETAILS OF PROCEDURE The patient remained in the medical intensive care unit, bed 513. He had just been previously sedated for a PEG tube by Dr. Becerril. Dr. Langston came in and gave the patient additional paralytic sedation and pain medicine. The anterior neck was then prepped and draped in standard surgical fashion. 1% lidocaine was injected in the skin and subcutaneous tissue one fingerbreadth above the sternal notch. A transverse incision was made. Dissection proceeded down through the subcutaneous tissue using a vertical spreading technique. A small anterior vein was identified and was bleeding. This was tied off with a 3-0 Vicryl suture. Dissection proceeded down to the trachea. The trachea was then palpated. An 18 Angiocath was then used to access the trachea without difficulty. A guidewire was advanced and easily went down toward the geno. This was visualized by direct bronchoscopy performed by Dr. Langston. Next, the anterior tracheotomy was performed using a tracheal punch. Next, the Blue Rhino was passed three successive times to the level of the black line. Next, a #8 Shiley tracheostomy tube was advanced over a dilator without any problem. Then the cuff was insufflated and the patient was connected to the ventilator and found to have good tidal volumes and positive end-tidal CO2. Direct bronchoscopy by Dr. Langston confirmed the tracheostomy within the trachea by inserting the scope through the tracheostomy site. Blood and mucus were suctioned out of the trachea by Dr. Langston. Next, the tracheostomy tube was secured using 2-0 Prolene suture interrupted. Sterile dressings were applied. The patient tolerated the procedure without any instability. Please see Dr. Langston's notes for the details of the direct bronchoscopy. A chest x-ray will be ordered at the conclusion of the procedure. MD IRVING Carr/KENDRICK /4:12 PM /10:42 AM
--- NOTE | 2016-01-03 13:24 | HHI.PR ---
Subjective Subjective Notes DAILY PROGRESS NOTE FOR SURGICAL ATTENDING, DR. ALVARADO ARIAS On MV via tracheostomy Objective Vitals/I&O Vital Signs Date Time Temp Pulse Resp B/P Pulse Ox O2 Delivery O2 Flow Rate FiO2 01/03/16 12:00 35 01/03/16 12:00 101.5 103 23 121/76 99 Labs Laboratory Tests Test 01/03/16 04:10 White Blood Count 6.0 Red Blood Count 3.52 Hemoglobin 9.4 Hematocrit 29.5 Mean Corpuscular Volume 83.9 Mean Corpuscular Hemoglobin 26.7 Mean Corpuscular Hemoglobin 31.8 Concent Red Cell Distribution Width 14.2 Platelet Count 204 Mean Platelet Volume 8.9 Prothrombin Time 11.4 Prothromb Time International 1.1 Ratio Activated Partial 27.5 Thromboplast Time Sodium Level 138 Potassium Level 4.1 Chloride Level 103 Carbon Dioxide Level 25.9 Anion Gap 9 Blood Urea Nitrogen 20 Creatinine 0.69 Estimat Glomerular Filtration 117 Rate Random Glucose 145 Calcium Level 8.9 Phosphorus Level 3.9 Magnesium Level 1.8 Date/Time Procedure Status Source Growth 01/01/16 18:10 Urine Culture - Final Complete Urine Catheterized Urine NO GROWTH IN 48 HOURS. 01/01/16 18:10 Gram Stain - Final Complete Sputum Endotracheal 01/01/16 18:10 Sputum Culture - Final Complete Sputum Endotracheal MODERATE GROWTH NORMAL RESPIRATORY ROSEMARIE Cardiovascular: Regular Lungs: Clear Abdomen: Non-distended, Non-tender Extremities: No edema Narrative Exam Trach in good position A/P Assessment and Plan 60 year old male with AMS and resp distress; s/p acute ischemic infarct; hx of non-Hodgkin's lymphoma -POD1 perc trach placement -Trach in good position -No problems with bleeding -Continue trach care -GS will sign off; please call with any questions Attending Statement NOTE FOR SURGICAL ATTENDING, DR. ALVARADO ARIAS The exam, history, and the medical decision-making described in the above note were completed with the assistance of the mid-level provider. I reviewed and agree with the findings presented. I attest that I had a [id number] encounter with the patient on the same day, and personally performed and documented my assessment and findings in the medical record. This patient was seen and evaluated with the surgical services tech,( if the note is signed by the surgical services tech) under my direct supervision. I agree with above assessment and plan. The following services were provided during this hospital visit: Chart data review, vital sign assessments/reviewing monitor data Review of consultations notes if present. Medication orders/review and/or management Ordering and/or reviewing lab tests Ordering and/or interpreting/reviewing x-rays and/or diagnostic studies Care of the patient and discussion of the patient with the care team Documentation time To help prompt me to consider important information that might be impacting today's encounter and assessment, information from prior notes written by myself or my colleagues may have been "brought forward/copy and pasted" into today's note. Macarena Shah Jan 03, 2016 13:24 Alvarado Arias MD Jan 03, 2016 13:30
[2016-01-04] VITALS (14 sets, daily range): BP systolic 102–139; BP diastolic 59–86; PULSE 71–99; RESP 16–20; TEMP 98.9–100.5; O2SAT 96–97
[2016-01-04] MEDS: INSULIN NovoLIN REGULAR SUPPLEMENTAL SCALE SQ SCH ×2 (00:33→06:31)
[2016-01-04] MEDS: CHLORHEXIDINE GLUCONATE 2 % 1 PACK (2 CLOTHS) TOP SCH (03:11)
--- NOTE | 2016-01-04 07:38 | HHI.PR ---
Subjective Remarks afib Objective Vital Signs Date Time Temp Pulse Resp B/P Pulse Ox O2 Delivery O2 Flow Rate FiO2 01/04/16 06:00 92 01/04/16 04:00 94 01/04/16 04:00 99.8 94 16 124/72 97 01/04/16 04:00 40 01/04/16 02:00 93 01/04/16 00:00 96 01/04/16 00:00 99.8 96 20 102/59 97 01/04/16 00:00 40 01/03/16 22:30 101/57 01/03/16 22:00 105 01/03/16 22:00 100.2 105 22 105/60 96 01/03/16 20:00 101.5 111 24 117/74 96 01/03/16 20:00 111 01/03/16 20:00 40 01/03/16 19:42 100 T-piece 6.00 50 01/03/16 18:00 114 01/03/16 16:00 104 01/03/16 16:00 100.7 104 24 122/73 99 01/03/16 15:33 99 T-piece 6.00 40 01/03/16 14:00 109 01/03/16 13:12 16 01/03/16 12:00 35 01/03/16 12:00 101.5 103 23 121/76 99 01/03/16 12:00 103 01/03/16 11:15 100 35 01/03/16 10:00 105 01/03/16 08:00 100.7 99 15 122/77 99 01/03/16 08:00 35 01/03/16 08:00 99 I/O 01/03/16 01/03/16 01/03/16 01/04/16 01/04/16 01/04/16 07:00 15:00 23:00 07:00 15:00 23:00 Intake Total 670 ml 553 ml 444 ml 1020 ml Output Total 475 ml 500 ml 425 ml 455 ml Balance 195 ml 53 ml 19 ml 565 ml IV Total 670 ml 305 ml 77 ml 622 ml Tube Feeding 0 ml 68 ml 277 ml 338 ml Tube Irrigant 180 ml Other 0 ml 90 ml 60 ml Output Urine Total 350 ml 500 ml 425 ml 355 ml Stool Total 25 ml 100 ml Gastric Drainage Total 100 ml Tube Feeding Residual Discard 0 ml # Bowel Movements 0 30 Result Diagram: 01/03/1640901/03/16409 Objective Remarks pupil = asleep toes mute tone good Assessment and Plan Assessment and Plan mrv shows basilar occlusion and mri shows sign bilat occipital and some small r cbllr acute cva the colin is slightly hyperintense almost full thickness and looks like major pontine infarct however not as bright as we usually see with infarct he could have a penumbra effect in colin so could be recoverable or just needs time to change signal plan is to keep bp up recheck mri friday if more bright then family thinking of decisions no sedatives i rec chemical code only will consider we discussed and we will keep anticoag going for now and i told her risk of bleeding into upper brain with some blood signal in original cva i dw dr vick and nitin cancino and neither felt it would be helpful to try and extract basilar clot and could kill him they both felt the colin was infarcted he could be locked in he is acting as if colin is infarcted although slight chance it could be stunned/ penumbra neuro will follow over weekend i will be back 12/25/15 i dw family at length and reviewed films with them no major change in brainstem brightness on mri inr 3.5 target 2-2.5 i think they would like to see how he does over the next 3 months and will probably go for trach if needed and peg he is locked in for the most part but full aware 12/26/15 inr 2.6 i dw son yest had some vertical eye movements to command monitor 12/27/15 locked in so he can hear all that is said family devoted and i expect peg+/-trach and they will see how he does next 6 months inr 2.4 doesnt always respond as will not awaken as quick as others 12/29/15 doing more with eyes locked in for trach and peg coumadin management per med team for that sq hep ok if need off coumadin for trach ------ 12/31/15 stable neuro for trach peg tues i dw daughter 01/04/16 asleep now sedation last two days with trach and peg could affect his neuro fxt will dw family needs coumadin restarted bp a little low try and keep >120/ if possible Steven De Leon MD Jan 04, 2016 07:38
[2016-01-04] MEDS: RANITIDINE HCL SYRUP 150 MG/10 ML UDC PO SCH ×2 (08:09→20:37)
[2016-01-04] MEDS: CHLORHEXIDINE 0.12% (ORAL KIT) 15 ML CUP MT SCH ×2 (08:09→19:55)
[2016-01-04] MEDS: DOCUSATE SODIUM 100 MG/10 ML UDC TUBE SCH ×2 (08:10→20:37)
[2016-01-04] MEDS: LACTOBACILLUS ACIDOPHILUS 1 GM PACKET TUBE SCH ×2 (08:10→20:37)
[2016-01-04] MEDS: ENOXAPARIN SODIUM 100 MG/ML SYRINGE SQ SCH ×2 (08:10→20:38)
[2016-01-04] MEDS: levETIRAcetam 500 MG/5 ML UDC TUBE SCH ×2 (08:10→20:37)
[2016-01-04] MEDS: SENNOSIDES SYRUP 8.8 MG/5 ML CUP TUBE SCH (08:10)
[2016-01-04 11:04] LABS: HEMATOCRIT 26.4 % (39.0-51.0); MEAN CELL VOLUME 84.2 FL (80.0-100.0); MEAN CORPUSCULAR HGB CONC 32.1 % (32.0-36.0); PLATELET COUNT 191 TH/MM3 (150-450); RED BLOOD COUNT 3.13 MIL/MM3 (4.50-5.90); REVIEW FLAG FINAL; WHITE BLOOD COUNT 5.5 TH/MM3 (4.0-11.0)
[2016-01-04 11:09] LABS: APTT (PATIENT) 27.5 SEC (22.6-28.8); INTERNATIONAL NORMALIZED RATIO 1.1 RATIO; PROTHROMBIN TIME - PATIENT 11.5 SEC (9.8-11.4)
[2016-01-04 11:21] LABS: BICARBONATE 27.2 MEQ/L (21.0-32.0); MAGNESIUM 1.9 MG/DL (1.5-2.5); POTASSIUM 3.1 MEQ/L (3.5-5.1)
[2016-01-04] MEDS: INSULIN ASPART SUPPLEMENTAL SCALE SQ SCH ×2 (11:33→17:31)
--- NOTE | 2016-01-04 12:21 | HHI.GIFU ---
Subjective Remarks Resting in bed. Pt tolerating TF at GR. (Cielo Sorensen) Objective Vitals I&O Vital Signs Date Time Temp Pulse Resp B/P Pulse Ox O2 Delivery O2 Flow Rate FiO2 01/04/16 12:00 71 01/04/16 12:00 99.6 98 18 115/68 97 01/04/16 10:00 92 01/04/16 08:00 84 01/04/16 08:00 98.9 84 18 117/67 97 01/04/16 07:35 96 T-piece 35 01/04/16 06:00 92 01/04/16 04:00 94 01/04/16 04:00 99.8 94 16 124/72 97 01/04/16 04:00 40 01/04/16 02:00 93 01/04/16 00:00 96 01/04/16 00:00 99.8 96 20 102/59 97 01/04/16 00:00 40 01/03/16 22:30 101/57 01/03/16 22:00 105 01/03/16 22:00 100.2 105 22 105/60 96 01/03/16 20:00 101.5 111 24 117/74 96 01/03/16 20:00 111 01/03/16 20:00 40 01/03/16 19:42 100 T-piece 6.00 50 01/03/16 18:00 114 01/03/16 16:00 104 01/03/16 16:00 100.7 104 24 122/73 99 01/03/16 15:33 99 T-piece 6.00 40 01/03/16 14:00 109 01/03/16 13:12 16 I/O 01/03/16 01/03/16 01/03/16 01/04/16 01/04/16 01/04/16 07:00 15:00 23:00 07:00 15:00 23:00 Intake Total 670 ml 553 ml 444 ml 1020 ml Output Total 475 ml 500 ml 425 ml 455 ml Balance 195 ml 53 ml 19 ml 565 ml IV Total 670 ml 305 ml 77 ml 622 ml Tube Feeding 0 ml 68 ml 277 ml 338 ml Tube Irrigant 180 ml Other 0 ml 90 ml 60 ml Output Urine Total 350 ml 500 ml 425 ml 355 ml Stool Total 25 ml 100 ml Gastric Drainage Total 100 ml Tube Feeding Residual Discard 0 ml # Bowel Movements 0 30 Laboratory Laboratory Tests Test 01/04/16 01/04/16 09:34 09:35 White Blood Count 5.5 Red Blood Count 3.13 Hemoglobin 8.5 Hematocrit 26.4 Mean Corpuscular Volume 84.2 Mean Corpuscular Hemoglobin 27.0 Mean Corpuscular Hemoglobin 32.1 Concent Red Cell Distribution Width 14.0 Platelet Count 191 Mean Platelet Volume 9.0 Prothrombin Time 11.5 Prothromb Time International 1.1 Ratio Activated Partial 27.5 Thromboplast Time Sodium Level 141 Potassium Level 3.1 Chloride Level 105 Carbon Dioxide Level 27.2 Anion Gap 9 Blood Urea Nitrogen 14 Creatinine 0.59 Estimat Glomerular Filtration 140 Rate Random Glucose 222 Calcium Level 8.4 Magnesium Level 1.9 Date/Time Procedure Status Source Growth 01/01/16 18:10 Urine Culture - Final Complete Urine Catheterized Urine NO GROWTH IN 48 HOURS. 01/01/16 18:10 Gram Stain - Final Complete Sputum Endotracheal 01/01/16 18:10 Sputum Culture - Final Complete Sputum Endotracheal MODERATE GROWTH NORMAL RESPIRATORY ROSEMARIE Imaging Last Impressions Chest X-Ray 01/02/16 0000 Signed Impressions: Service Date/Time: Saturday, January 02, 2016 16:30 - CONCLUSION: Status post tracheostomy tube placement. Persistent mild airspace disease in both bases. Ernesto Kulkarni MD Brain MRI 12/29/15 0000 Signed Impressions: Service Date/Time: Tuesday, December 29, 2015 13:35 - CONCLUSION: Stable MRI showing a large brain stem infarct and bilateral occipital infarcts from a basilar artery thrombosis. 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 No evidence of carotid stenosis. Glen Zamora MD Head Magnetic Resonance Angiography 12/22/15 1445 Signed Impressions: Service Date/Time: Tuesday, December 22, 2015 09:22 - CONCLUSION: 1. 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 2. Anterior circulation remains patent without aneurysmal disease. Bobby Gray MD Head/Brain Mag Res Venography 12/22/15 0000 Signed Impressions: Service Date/Time: Tuesday, December 22, 2015 09:22 - CONCLUSION: Normal MRV. Jonel Jones Jr., MD Head CT 12/21/15 0546 Signed Impressions: Service Date/Time: December 06:01 - CONCLUSION: 1. No focal or acute intracranial hemorrhage. 2. There is a new area of decreased density in the left occipital lobe suggestive of a recent nonhemorrhagic infarction. 3. The decreased density in the previously noted right occipital lobe has increased in size. Michael Hamilton MD Physical Exam HEENT: Normocephalic; atraumatic; no jaundice. CHEST: Scattered rhonchi. Tracheostomy CARDIAC: RRR. ABDOMEN: Soft, round, nondistended, nontender; no hepatosplenomegaly; bowel sounds are present in all four quadrants. PEG tube site without redness, swelling,drainage EXTREMITIES: Generalized edema. SKIN: Normal; no rash; no jaundice. 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 (Cielo Sorensen) Assessment and Plan Plan ASSESSMENT: - Dysphagia, FEN. 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 S/P EGD with PEG tube placement (01/01). Pizzamaker is following and has recommended Vital HP @ 60 mls/hr. Site without redness, swelling, or drainage. PLAN: - S/P EGD with peg - Vital HP @ 60 mls/hr. - GI will sign off, please reconsult as needed. - Pt seen and examined by Dr. Becerril and myself and this note is written on her behalf (Cielo Sorensen) Cielo Sorensen Jan 04, 2016 12:21 Denita Becerril MD Jan 04, 2016 20:47
--- NOTE | 2016-01-04 12:36 | HHI.CCPN ---
Subjective Remarks/Hospital Course 59year-old male with past medical history of paroxysmal atrial fibrillation, hypertension, stage IIIa non-Hodgkin's lymphoma (s/p chemotherapy with Rituxan, [facility] 2014) presented to [facility] emergency department on 12/20 with altered mental status. When he woke up of 4 o'clock, the patient had some right facial droop associated with headaches. CT scan of the brain showed no focal or acute intracranial hemorrhage. However, there is an new area of decreased density in the left occipital lobe, suggestive of recent non hemorrhagic infarction and a decreased density in the previously noted right occipital lobe which had increased in size. The patient was recently admitted on December 06 with similar presentation and he had a right occipital juan jose hole brain biopsy done by Dr. Marin on December 13. The pathology results showed acute infarction without evidence of lymphoma. On this admission, the patient became obtunded, had sonorous respirations and can would not follow any commands. He was subsequently intubated by the emergency department physician. MRI of the brain was obtained which showed a new area of restricted diffusion within the left occipital lobe suggesting acute infarction. EKG on arrival showed A-fib with RVR at rate of 114 beats per minute. Pertinent ICU Coarse: 12/21: No events overnight. Sedated with Diprivan and intubated. For MRA brain, carotids and MRV brain today . 12/22: Patient remains intubated, off sedation. 12/23: No events overnight. Remains off sedation. Withdraws to pain. 12/24: Remains intubated, on no sedation. For repeat MRI brain today 12/25: Tolerated PSV for 4-5 hour yesterday. 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 12/26: Tolerating PSV. Opens eyes to voice, reportedly has been blinking to command but isn't doing so currently even when family encouraging him. 12/27: Continues to tolerate PSV. Follows commands via ocular movements. Weak withdraw LUE noxious stimuli. 12/28: Tolerating PSV 04/24. Family desires trach - warfarin placed on hold. MRI today per neurology. 12/29: Tolerating tube feeds. INR 2.2. Sputum culture with pansensitive klebsiella. 12/30: No neuro change. Continues to tolerate PSV 12/31: General surgery and GI planning trach / PEG tomorrow. Has low grade temp 100.2. 01/01: On full vent support. No significant neurologic changes. s/p bedside Trach and PEG. 01/02: Resuming PSV trials. Restart tube feeds. 01/03; On continuous trach collar since yesterday evening. No significant secretions. Objective - Vital Signs Date Time Temp Pulse Resp B/P Pulse Ox O2 Delivery O2 Flow Rate FiO2 01/04/16 12:00 71 01/04/16 12:00 99.6 18 115/68 97 01/04/16 07:35 T-piece 35 01/03/16 19:42 6.00 I/O 01/03/16 01/03/16 01/04/16 08:00 16:00 00:00 Intake Total 670 ml 553 ml 444 ml Output Total 475 ml 500 ml 425.0 ml Balance 195 ml 53 ml 19.0 ml Result Diagram: 01/04/1634 01/04/16 0935 Objective Remarks GENERAL: Elderly male lying in bed and breathing spontaneously via tracheostomy. SKIN: Warm and dry, well perfused HEENT: Normocephalic. No scleral icterus. Right facial droop NECK: Trachea midline. No JVD. Tracheostomy site intact CARDIOVASCULAR: Regular rate and rhythm without any appreciable murmurs RESPIRATORY: Coarse breath sounds anteriorly with good air entry bilaterally GASTROINTESTINAL: Abdomen soft, nondistended. Bowel sounds present. PEG site intact MUSCULOSKELETAL: Palpable pulses with warm periphery. No edema NEURO: + spontaneous eye openings (Previously Eyes open to voice and he looks up and down and to the left to command). 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 -- Pt maybe in a "Locked-in" state - Previously attempted to follow commands with ocular movements. -- Continue Keppra 500 mg q 12 per tube - started by Dr. Luna last admission -- Resumed full systemic anti-coagulation 01/03 s/p trach and PEG (on 01/01) -- Neurology, Dr. De Leon following 2) CVS Paroxysmal Atrial fibrillation - currently in sinus rhythm. Hx of Hypertension -- HR and BP stable -- 2d echo from 12/07 - EF of 60% with no regional wall motion abnormalities. -- Continue Anticoagulation for paroxysmal atrial fibrillation with ischemic CVA as above 3) Pulmonary Acute respiratory failure secondary to CVA -- s/p bedside percutaneous trach 01/01 for airway management -- Pt has been on continuous trach collar since 01/02 -- Continue DuoNeb q 4 as needed -- CXR 01/01 - s/p trach; minimal air space disease without obvious infiltrate 4) GI / Nutrition Mild protein calorie malnutrition -- s/p PEG 01/01 -- Tolerating tube feeds (Jevity) at goal of 50 cc/hr (25-30 kcal/kg/day) -- Continue bowel regimen with Colace q 12 and Senna q day -- LFTs within normal limits 12/29 5) Renal / Metabolic Mild hyponatremia - resolved -- Bun and creatinine stable with good urine output -- Arevalo catheter in place for accurate I/Os in critically ill patient -- Supplement electrolytes as needed per replacement protocol 6) Endocrine Hx of Diabetes mellitus -- Continue medium dose SSI q 6 hours for glycemic control -- TSH within normal limits 12/22 7) Heme Stage III a non-Hodgkin's lymphoma - s/p chemotherapy 2015 Anemia -- s/p brain biopsy on December 13, by Neurosurgery, Dr. Marin - Pathology consistent with acute infarct without evidence of lymphoma -- Seen by Oncology, Dr. Whyte, who has signed off for current admission as no active oncology issues -- Continue anti-coagulation with Lovenox 1 mg/kg q12 as bridge to Coumadin with goal INR 2-3 8) ID Sepsis secondary to acute pneumonia -- CXR on 12/22 with Left basilar opacity -- Pertinent cultures: - Sputum 12/23 - negative - Sputum 12/27 - willams sensitive Klebsiella - Blood 12/22 - 07/24 Coag. Negative Staph (S. Simulans) - Blood 12/23 and 12/27 - negative - Urine 12/27 - negative - Sputum and Urine 12/31 - pending -- s/p Zosyn (12/22 - 12/29) and s/p Rocephin (12/29 - 01/02) for total of 12 days of antibiotic therapy -- s/p 6 day course of vancomycin, stopped 12/28 based on culture data 9) Prophylaxis: GI - oral Zantac q 12 hours DVT - SCDs, On full dose Lovenox 1 mg/kg q 12 + Coumadin 10) IV Access: Peripheral iv E/M time is 35 minutes (Level 3) Eliazar Patino MD Jan 04, 2016 12:36
[2016-01-04] MEDS: POTASSIUM CL 40 MEQ/30 ML LIQ UDC NG SCH ×2 (13:28→16:21)
[2016-01-04] MEDS: WARFARIN SOD 5 MG TAB PO SCH (15:35)
[2016-01-04] MEDS: SODIUM CHLORIDE 0.9% FLUSH 5 ML FLUSH IVF PRN (19:55)
[2016-01-04] MEDS: INSULIN DETEMIR 100 UNITS/ML VIAL SQ SCH (20:38)
[2016-01-05] VITALS (14 sets, daily range): BP systolic 107–145; BP diastolic 64–82; PULSE 82–97; RESP 16–24; TEMP 97.2–99.3; O2SAT 95–100
[2016-01-05] MEDS: INSULIN ASPART SUPPLEMENTAL SCALE SQ SCH ×4 (00:09→17:24)
[2016-01-05] MEDS: CHLORHEXIDINE GLUCONATE 2 % 1 PACK (2 CLOTHS) TOP SCH (00:11)
[2016-01-05 04:58] LABS: BLOOD GAS CARBOXYHEMOGLOBIN 1.5 % (0-4); BLOOD GAS HCO3 26 mmol/L (22-26); BLOOD GAS METHEMOGLOBIN 0.9 % (0-2); BLOOD GAS O2 HGB SATURATION 94 % (90-100); BLOOD GAS OXYGEN CONTENT 11.4 Vol % (12.0-20.0); BLOOD GAS PCO2 37 mmHg (38-42); BLOOD GAS PO2 80 mmHg (61-120); BLOOD GAS TOTAL HGB 8.5 G/DL (12.0-16.0); CRITICAL VALUE NO; OXYGEN DEVICE TP; TEMP CORR TO 98.6
[2016-01-05 04:59] LABS: DRAW SITE LT RADIAL; FIO2 28 %; NUMBER OF ARTERIAL PUNCTURES 1; STAT NO; ULNAR PULSE PRESENT
[2016-01-05 05:32] LABS: BACTERIA, URINE RARE /hpf; BLOOD, URINE NEG (NEG); GLUCOSE,URINE NEG (NEG); KETONE, URINE NEG (NEG); MUCUS URINE FEW /lpf (OCC); NITRITE,URINE NEG (NEG); PH, URINE 6.5 (5.0-8.5); SQUAMOUS EPITHELIAL CELL URINE 1 /hpf (0-5); URINE COLOR YELLOW (YELLW/STRAW)
[2016-01-05 05:47] LABS: COMMENT (UR) CATH-CULT NOT IND; CULTURE IF INDICATED CATH CULTURE NOT IND
--- NOTE | 2016-01-05 06:10 | RADRPT ---
EXAM DATE/TIME: 01/05/2016 05:00 [place] COMPARISON: CHEST SINGLE AP, January 02, 2016, 16:30. INDICATIONS : Evaluate for respiratory disease. MEDICAL HISTORY : Hypertension. Diabetes mellitus type II. SURGICAL HISTORY : None. ENCOUNTER: Subsequent ACUITY: 2 weeks PAIN SCORE: Non-responsive. LOCATION: chest FINDINGS: The tracheostomy tube remains in place. There is no evidence of pneumothorax. There is mild bibasilar atelectasis. Otherwise, the lung mo remain grossly clear. There've been no significant changes c ompared to the prior study. CONCLUSION: Mild bibasilar atelectasis. No significant change. Michael Hamilton MD on January 05, 2016 at 6:08 Board Certified Radiologist. This report was verified electronically.
[2016-01-05 06:59] LABS: HEMATOCRIT 29.3 % (39.0-51.0); MEAN CELL VOLUME 85.8 FL (80.0-100.0); MEAN CORPUSCULAR HEMOGLOBIN 27.3 PG (27.0-34.0); MEAN CORPUSCULAR HGB CONC 31.8 % (32.0-36.0); PLATELET COUNT 197 TH/MM3 (150-450); RED BLOOD COUNT 3.41 MIL/MM3 (4.50-5.90); RED CELL DISTRIBUTION WIDTH 14.1 % (11.6-17.2); REVIEW FLAG FINAL
[2016-01-05 07:03] LABS: INTERNATIONAL NORMALIZED RATIO 1.1 RATIO; PROTHROMBIN TIME - PATIENT 11.7 SEC (9.8-11.4)
[2016-01-05 07:24] LABS: ALKALINE PHOSPHATASE 50 U/L (45-117); ALT (GPT) 19 U/L (12-78); ANION GAP 10 MEQ/L (5-15); AST (GOT) 11 U/L (15-37); BICARBONATE 26.9 MEQ/L (21.0-32.0); BLOOD UREA NITROGEN 17 MG/DL (7-18); CHLORIDE 104 MEQ/L (98-107); GLOMERULAR FILTRATION RATE 146 ML/MIN (>89); MAGNESIUM 1.9 MG/DL (1.5-2.5); POTASSIUM 3.6 MEQ/L (3.5-5.1); SODIUM (NA) 141 MEQ/L (136-145); TOTAL BILIRUBIN ADULT 0.4 MG/DL (0.2-1.0)
[2016-01-05] MEDS: CHLORHEXIDINE 0.12% (ORAL KIT) 15 ML CUP MT SCH ×2 (07:55→20:39)
[2016-01-05] MEDS: ENOXAPARIN SODIUM 100 MG/ML SYRINGE SQ SCH ×2 (08:00→20:40)
[2016-01-05] MEDS: RANITIDINE HCL SYRUP 150 MG/10 ML UDC PO SCH ×2 (08:00→20:40)
[2016-01-05] MEDS: INSULIN DETEMIR 100 UNITS/ML VIAL SQ SCH (08:00)
[2016-01-05] MEDS: levETIRAcetam 500 MG/5 ML UDC TUBE SCH ×2 (08:01→20:40)
[2016-01-05] MEDS: DOCUSATE SODIUM 100 MG/10 ML UDC TUBE SCH ×2 (08:01→20:40)
[2016-01-05] MEDS: LACTOBACILLUS ACIDOPHILUS 1 GM PACKET TUBE SCH ×2 (08:01→20:44)
[2016-01-05] MEDS: SENNOSIDES SYRUP 8.8 MG/5 ML CUP TUBE SCH (08:01)
--- NOTE | 2016-01-05 08:44 | HHI.CCPN ---
Subjective Remarks/Hospital Course 59year-old male with past medical history of paroxysmal atrial fibrillation, hypertension, stage IIIa non-Hodgkin's lymphoma (s/p chemotherapy with Rituxan, [facility] 2014) presented to [facility] emergency department on 12/20 with altered mental status. When he woke up of 4 o'clock, the patient had some right facial droop associated with headaches. CT scan of the brain showed no focal or acute intracranial hemorrhage. However, there is an new area of decreased density in the left occipital lobe, suggestive of recent non hemorrhagic infarction and a decreased density in the previously noted right occipital lobe which had increased in size. The patient was recently admitted on December 06 with similar presentation and he had a right occipital juan jose hole brain biopsy done by Dr. Marin on December 13. The pathology results showed acute infarction without evidence of lymphoma. On this admission, the patient became obtunded, had sonorous respirations and can would not follow any commands. He was subsequently intubated by the emergency department physician. MRI of the brain was obtained which showed a new area of restricted diffusion within the left occipital lobe suggesting acute infarction. EKG on arrival showed A-fib with RVR at rate of 114 beats per minute. Pertinent ICU Coarse: 12/21: No events overnight. Sedated with Diprivan and intubated. For MRA brain, carotids and MRV brain today . 12/22: Patient remains intubated, off sedation. 12/23: No events overnight. Remains off sedation. Withdraws to pain. 12/24: Remains intubated, on no sedation. For repeat MRI brain today 12/25: Tolerated PSV for 4-5 hour yesterday. 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 12/26: Tolerating PSV. Opens eyes to voice, reportedly has been blinking to command but isn't doing so currently even when family encouraging him. 12/27: Continues to tolerate PSV. Follows commands via ocular movements. Weak withdraw LUE noxious stimuli. 12/28: Tolerating PSV 04/24. Family desires trach - warfarin placed on hold. MRI today per neurology. 12/29: Tolerating tube feeds. INR 2.2. Sputum culture with pansensitive klebsiella. 12/30: No neuro change. Continues to tolerate PSV 12/31: General surgery and GI planning trach / PEG tomorrow. Has low grade temp 100.2. 01/01: On full vent support. No significant neurologic changes. s/p bedside Trach and PEG. 01/02: Resuming PSV trials. Restart tube feeds. 01/03; On continuous trach collar since yesterday evening. No significant secretions. 01/04 No events overnight. Patient has been on TP's x 2 days currently on 28% FIO2. T: 100.5 last night. Objective - Vital Signs Date Time Temp Pulse Resp B/P Pulse Ox O2 Delivery O2 Flow Rate FiO2 01/05/16 04:00 83 01/05/16 04:00 98.7 16 122/75 100 01/04/16 20:58 T-piece 35 01/03/16 19:42 6.00 I/O 01/04/16 01/04/16 01/04/16 07:59 15:59 23:59 Intake Total 1020 ml 545 ml 522 ml Output Total 455 ml 550 ml 275 ml Balance 565 ml -5 ml 247 ml Result Diagram: 01/05/16 0601/05/16 06 Other Results Laboratory Tests Test 01/04/16 01/04/16 01/05/16 01/05/16 09:34 09:35 04:45 04:47 White Blood Count 5.5 TH/MM3 Red Blood Count 3.13 MIL/MM3 Hemoglobin 8.5 GM/DL Hematocrit 26.4 % Mean Corpuscular Volume 84.2 FL Mean Corpuscular Hemoglobin 27.0 PG Mean Corpuscular Hemoglobin 32.1 % Concent Red Cell Distribution Width 14.0 % Platelet Count 191 TH/MM3 Mean Platelet Volume 9.0 FL Prothrombin Time 11.5 SEC Prothromb Time International 1.1 RATIO Ratio Activated Partial 27.5 SEC Thromboplast Time Sodium Level 141 MEQ/L Potassium Level 3.1 MEQ/L Chloride Level 105 MEQ/L Carbon Dioxide Level 27.2 MEQ/L Anion Gap 9 MEQ/L Blood Urea Nitrogen 14 MG/DL Creatinine 0.59 MG/DL Estimat Glomerular Filtration 140 ML/MIN Rate Random Glucose 222 MG/DL Calcium Level 8.4 MG/DL Magnesium Level 1.9 MG/DL Urine Color YELLOW Urine Turbidity CLEAR Urine pH 6.5 Urine Specific [place] 1.021 Urine Protein TRACE mg/dL Urine Glucose (UA) NEG mg/dL Urine Ketones NEG mg/dL Urine Occult Blood NEG Urine Nitrite NEG Urine Bilirubin NEG Urine Urobilinogen 4.0 MG/DL Urine Leukocyte Esterase NEG Urine RBC 6 /hpf Urine WBC 1 /hpf Urine Squamous Epithelial 1 /hpf Cells Urine Bacteria RARE /hpf Urine Mucus FEW /lpf Microscopic Urinalysis Comment CATH-CULT NOT IND Blood Gas Puncture Site LT RADIAL Blood Gas Patient Temperature 98.6 Blood Gas HCO3 26 mmol/L Blood Gas Base Excess 2.0 mmol/L Blood Gas Oxygen Saturation 94 % Arterial Blood pH 7.46 Arterial Blood Partial 37 mmHg Pressure CO2 Arterial Blood Partial 80 mmHg Pressure O2 Arterial Blood Oxygen Content 11.4 Vol % Arterial Blood 1.5 % Carboxyhemoglobin Arterial Blood Methemoglobin 0.9 % Blood Gas Hemoglobin 8.5 G/DL Oxygen Delivery Device TP Blood Gas Inspired Oxygen 28 % Test 01/05/16 06:05 White Blood Count 5.0 TH/MM3 Red Blood Count 3.41 MIL/MM3 Hemoglobin 9.3 GM/DL Hematocrit 29.3 % Mean Corpuscular Volume 85.8 FL Mean Corpuscular Hemoglobin 27.3 PG Mean Corpuscular Hemoglobin 31.8 % Concent Red Cell Distribution Width 14.1 % Platelet Count 197 TH/MM3 Mean Platelet Volume 8.9 FL Prothrombin Time 11.7 SEC Prothromb Time International 1.1 RATIO Ratio Sodium Level 141 MEQ/L Potassium Level 3.6 MEQ/L Chloride Level 104 MEQ/L Carbon Dioxide Level 26.9 MEQ/L Anion Gap 10 MEQ/L Blood Urea Nitrogen 17 MG/DL Creatinine 0.57 MG/DL Estimat Glomerular Filtration 146 ML/MIN Rate Random Glucose 145 MG/DL Calcium Level 8.8 MG/DL Phosphorus Level 3.3 MG/DL Magnesium Level 1.9 MG/DL Total Bilirubin 0.4 MG/DL Aspartate Amino Transf 11 U/L (AST/SGOT) Alanine Aminotransferase 19 U/L (ALT/SGPT) Alkaline Phosphatase 50 U/L Total Protein 6.7 GM/DL Albumin 2.4 GM/DL Imaging Last Impressions Chest X-Ray 01/05/16 0600 Signed Impressions: Service Date/Time: Tuesday, January 05, 2016 05:00 - CONCLUSION: Mild bibasilar atelectasis. No significant change. 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 No evidence of carotid stenosis. Glen Zamora MD Head Magnetic Resonance Angiography 12/22/15 1445 Signed Impressions: Service Date/Time: Tuesday, December 22, 2015 09:22 - CONCLUSION: 1. 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 2. Anterior circulation remains patent without aneurysmal disease. Bobby Gray MD Head/Brain Mag Res Venography 12/22/15 0000 Signed Impressions: Service Date/Time: Tuesday, December 22, 2015 09:22 - CONCLUSION: Normal MRV. Jonel Jones Jr., MD Head CT 12/21/15 0546 Signed Impressions: Service Date/Time: December 06:01 - CONCLUSION: 1. No focal or acute intracranial hemorrhage. 2. There is a new area of decreased density in the left occipital lobe suggestive of a recent nonhemorrhagic infarction. 3. The decreased density in the previously noted right occipital lobe has increased in size. Michael Hamilton MD Objective Remarks GENERAL: Elderly male lying in bed and breathing spontaneously via tracheostomy. SKIN: Warm and dry, well perfused HEENT: Normocephalic. No scleral icterus. Right facial droop NECK: Trachea midline. No JVD. Tracheostomy site intact CARDIOVASCULAR: Regular rate and rhythm without any appreciable murmurs RESPIRATORY: Coarse breath sounds anteriorly with good air entry bilaterally GASTROINTESTINAL: Abdomen soft, nondistended. Bowel sounds present. PEG site intact MUSCULOSKELETAL: Palpable pulses with warm periphery. No edema NEURO: + spontaneous eye openings (Previously Eyes open to voice and he looks up and down and to the left to command). 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 -- Pt maybe in a "Locked-in" state - Previously attempted to follow commands with ocular movements. -- Continue Keppra 500 mg q 12 per tube - started by Dr. Luna last admission -- Resumed full systemic anti-coagulation 01/03 s/p trach and PEG (on 01/01) -- Neurology, Dr. De Leon following 2) CVS Paroxysmal Atrial fibrillation - currently in sinus rhythm. Hx of Hypertension -- Monitro HR and BP keep MAP>65mmHg -- 2d echo from 12/07 - EF of 60% with no regional wall motion abnormalities. -- Continue Anticoagulation for paroxysmal atrial fibrillation with ischemic CVA as above 3) Pulmonary Acute respiratory failure secondary to CVA -- s/p bedside percutaneous trach 01/01 for airway management -- Pt has been on continuous trach collar since 01/02 -- Continue DuoNeb q 4 as needed --Pulm toilet, trach care 4) GI / Nutrition Mild protein calorie malnutrition -- s/p PEG 01/01 -- Tolerating tube feeds (Vital high protein)@60ml/hr -- Continue bowel regimen with Colace q 12 and Senna q day -- LFTs within normal limits 12/29 5) Renal / Metabolic Mild hyponatremia - resolved -- Monitor renal function, I/O's, electrolytes replacement per protocol. 6) Endocrine Hx of Diabetes mellitus -- Continue medium dose SSI q 6 hours for glycemic control -- TSH within normal limits 12/22 7) Heme Stage III a non-Hodgkin's lymphoma - s/p chemotherapy 2014 Anemia -- s/p brain biopsy on December 13, by Neurosurgery, Dr. Marin - Pathology consistent with acute infarct without evidence of lymphoma -- Seen by Oncology, Dr. Whyte, who has signed off for current admission as no active oncology issues -- Continue anti-coagulation with Lovenox 1 mg/kg q12 as bridge to Coumadin with goal INR 2-3 ( INR 1.1 today) 8) ID Sepsis secondary to acute pneumonia -- CXR today: Mild bibasilar atelectasis -- Pertinent cultures: - Sputum 12/23 - negative - Sputum 12/27 - willams sensitive Klebsiella - Blood 12/22 - 07/24 Coag. Negative Staph (S. Simulans) - Blood 12/23 and 12/27 - negative - Urine 12/27 - negative - Sputum and Urine 12/31 - pending -- s/p Zosyn (12/22 - 12/29) and s/p Rocephin (12/29 - 01/02) for total of 12 days of antibiotic therapy. Check sputum cx -- s/p 6 day course of vancomycin, stopped 12/28 based on culture data 9) Prophylaxis: GI - oral Zantac q 12 hours DVT - SCDs, On full dose Lovenox 1 mg/kg q 12 + Coumadin 10) IV Access: Peripheral iv Will sign off and transfer care to [facility] E/M time is 35 minutes (Level 3) Wil Langston MD Jan 05, 2016 08:43
[2016-01-05] MEDS: WARFARIN SOD 5 MG TAB PO SCH (15:08)
[2016-01-06] VITALS (14 sets, daily range): BP systolic 121–143; BP diastolic 72–81; PULSE 86–94; RESP 17–25; TEMP 98.5–99.8; O2SAT 96–100
[2016-01-06] MEDS: INSULIN ASPART SUPPLEMENTAL SCALE SQ SCH ×4 (00:37→18:08)
[2016-01-06] MEDS: CHLORHEXIDINE GLUCONATE 2 % 1 PACK (2 CLOTHS) TOP SCH (04:00)
[2016-01-06 06:35] LABS: INTERNATIONAL NORMALIZED RATIO 1.2 RATIO; PROTHROMBIN TIME - PATIENT 12.7 SEC (9.8-11.4)
[2016-01-06 06:37] LABS: AUTOMATED NEUTROPHIL # 2.9 TH/MM3 (1.8-7.7); BASOPHIL # 0.1 TH/MM3 (0-0.2); BASOPHIL % 1.2 % (0.0-2.0); EOSINOPHIL # 0.3 TH/MM3 (0-0.4); EOSINOPHIL % 5.9 % (0.0-4.0); HEMATOCRIT 27.7 % (39.0-51.0); HEMO FLAGS DIFF FINAL; LYMPH % 23.8 % (9.0-44.0); LYMPHOCYTE # 1.1 TH/MM3 (1.0-4.8); MEAN CELL VOLUME 84.3 FL (80.0-100.0); MEAN CORPUSCULAR HEMOGLOBIN 27.1 PG (27.0-34.0); MEAN CORPUSCULAR HGB CONC 32.1 % (32.0-36.0); MONO % 7.5 % (0.0-8.0); NEUT % 61.6 % (16.0-70.0); PLATELET COUNT 232 TH/MM3 (150-450); RED BLOOD COUNT 3.29 MIL/MM3 (4.50-5.90); RED CELL DISTRIBUTION WIDTH 14.4 % (11.6-17.2); WHITE BLOOD COUNT 4.7 TH/MM3 (4.0-11.0)
[2016-01-06 06:53] LABS: BICARBONATE 28.7 MEQ/L (21.0-32.0); MAGNESIUM 1.7 MG/DL (1.5-2.5); POTASSIUM 3.6 MEQ/L (3.5-5.1)
[2016-01-06] MEDS: RANITIDINE HCL SYRUP 150 MG/10 ML UDC PO SCH ×2 (07:53→21:31)
[2016-01-06] MEDS: DOCUSATE SODIUM 100 MG/10 ML UDC TUBE SCH ×2 (07:53→21:31)
[2016-01-06] MEDS: SENNOSIDES SYRUP 8.8 MG/5 ML CUP TUBE SCH (07:53)
[2016-01-06] MEDS: levETIRAcetam 500 MG/5 ML UDC TUBE SCH ×2 (07:53→21:32)
[2016-01-06] MEDS: CHLORHEXIDINE 0.12% (ORAL KIT) 15 ML CUP MT SCH ×2 (07:53→21:32)
[2016-01-06] MEDS: ENOXAPARIN SODIUM 100 MG/ML SYRINGE SQ SCH ×2 (07:53→21:31)
[2016-01-06] MEDS: LACTOBACILLUS ACIDOPHILUS 1 GM PACKET TUBE SCH ×2 (07:53→21:31)
--- NOTE | 2016-01-06 14:49 | HHI.PR ---
Subjective Remarks Patient seen and evaluated today in follow-up for encephalopathy secondary to stroke. The family in room. Care plan discussed with patient's family and [employer]ATOR. Chart reviewed Objective Vitals Vital Signs Date Time Temp Pulse Resp B/P Pulse Ox O2 Delivery O2 Flow Rate FiO2 01/06/16 14:00 87 01/06/16 12:00 86 01/06/16 12:00 98.9 86 17 121/72 97 01/06/16 10:00 90 01/06/16 08:00 99.3 94 21 128/76 97 01/06/16 08:00 94 01/06/16 06:56 99 T-piece 5.00 28 01/06/16 06:00 91 01/06/16 04:00 93 01/06/16 04:00 99.8 93 24 143/81 96 01/06/16 02:00 94 01/06/16 00:00 99.5 91 21 128/76 98 01/06/16 00:00 91 01/05/16 22:56 97 T-piece 28 01/05/16 22:00 97 01/05/16 20:00 96 01/05/16 20:00 97.2 96 24 122/74 96 01/05/16 18:00 95 01/05/16 16:00 99.0 97 18 124/75 97 01/05/16 16:00 97 I/O 01/05/16 01/05/16 01/05/16 01/06/16 01/06/16 01/06/16 07:00 15:00 23:00 07:00 15:00 23:00 Intake Total 564 ml 603 ml 735 ml 347 ml 675 ml Output Total 725 ml 480 ml 450 ml 250 ml 400 ml Balance -161 ml 123 ml 285 ml 97 ml 275 ml Intake Oral 0 ml 0 ml 0 ml IV Total 80 ml 76 ml 106 ml 45 ml 94 ml Tube Feeding 424 ml 407 ml 569 ml 242 ml 521 ml Tube Irrigant 60 ml 60 ml 60 ml Other 60 ml 120 ml Output Urine Total 725 ml 430 ml 450 ml 250 ml 400 ml Stool Total 50 ml 0 ml 0 ml Tube Feeding Residual Discard 0 ml 0 ml Bladder Scan Volume Amount 392 ml # Bowel Movements 25 0 Result Diagram: 01/06/16 0543 01/06/16 0543 Imaging Last Impressions Chest X-Ray 01/05/16 0600 Signed Impressions: Service Date/Time: Tuesday, January 05, 2016 05:00 - CONCLUSION: Mild bibasilar atelectasis. No significant change. 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 No evidence of carotid stenosis. Glen Zamora MD Head Magnetic Resonance Angiography 12/22/15 1445 Signed Impressions: Service Date/Time: Tuesday, December 22, 2015 09:22 - CONCLUSION: 1. 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 2. Anterior circulation remains patent without aneurysmal disease. Bobby Gray MD Head/Brain Mag Res Venography 12/22/15 0000 Signed Impressions: Service Date/Time: Tuesday, December 22, 2015 09:22 - CONCLUSION: Normal MRV. Jonel Jones Jr., MD Head CT 12/21/15 0546 Signed Impressions: Service Date/Time: December 06:01 - CONCLUSION: 1. No focal or acute intracranial hemorrhage. 2. There is a new area of decreased density in the left occipital lobe suggestive of a recent nonhemorrhagic infarction. 3. The decreased density in the previously noted right occipital lobe has increased in size. Michael Hamilton MD Objective Remarks GENERAL: This is a well-nourished, well-developed patient, in no apparent distress. CARDIOVASCULAR: Regular rate and rhythm without murmurs, gallops, or rubs. RESPIRATORY: Tracheostomy Clear to auscultation. Breath sounds equal bilaterally. No wheezes, rales, or rhonchi. GASTROINTESTINAL: PEG tube Abdomen soft, non-tender, nondistended. Normal active bowel sounds MUSCULOSKELETAL: Extremities without clubbing, cyanosis, or edema. NEURO: Encephalopathic, tongue fasciculations, no withdrawal my exam Procedures PEG and trach A/P Problem List: (1) CVA (cerebral vascular accident) Status: Acute Plan: Acute pontine and cerebellar infarct with basilar artery thrombosis Continue Keppra EEG does show severe encephalopathy with abnormal delta waves Repeat MRI Friday and continue following clinically as patient may be in "a locked in" state (2) Fever Status: Acute Plan: Last temperature 6/16 100.5,Etiology unclear at this time. Patient with acute pneumonia (pansensitive Klebsiella 12/27 sputum) current other cultures are negative We'll continue to watch off of antibiotics (3) Acute respiratory failure Status: Acute Plan: Secondary to CVA, Status post tracheostomy. Continue rhonchi dilators and pulmonary toilet (4) Non-Hodgkin lymphoma Status: Chronic Plan: By history (biopsy done 12/13 due to infarction) (5) A-fib Status: Acute Plan: Rate controlled, continue full anticoagulation (Lovenox and warfarin) Echocardiogram completed in November shows preserved EF Cathy Lindo MD Jan 06, 2016 14:48
[2016-01-06] MEDS: WARFARIN SOD 5 MG TAB PO SCH (16:36)
[2016-01-07] VITALS (14 sets, daily range): BP systolic 127–146; BP diastolic 71–80; PULSE 80–99; RESP 18–26; TEMP 98.8–100.6; O2SAT 92–98
[2016-01-07] MEDS: CHLORHEXIDINE GLUCONATE 2 % 1 PACK (2 CLOTHS) TOP SCH ×2 (04:00→19:52)
[2016-01-07] MEDS: INSULIN ASPART SUPPLEMENTAL SCALE SQ SCH ×4 (06:00→17:50)
[2016-01-07 06:03] LABS: HEMATOCRIT 27.4 % (39.0-51.0); MEAN CELL VOLUME 84.3 FL (80.0-100.0); MEAN CORPUSCULAR HEMOGLOBIN 26.7 PG (27.0-34.0); MEAN CORPUSCULAR HGB CONC 31.7 % (32.0-36.0); PLATELET COUNT 263 TH/MM3 (150-450); RED BLOOD COUNT 3.25 MIL/MM3 (4.50-5.90); RED CELL DISTRIBUTION WIDTH 14.6 % (11.6-17.2); REVIEW FLAG FINAL; WHITE BLOOD COUNT 4.9 TH/MM3 (4.0-11.0)
[2016-01-07 06:19] LABS: INTERNATIONAL NORMALIZED RATIO 1.3 RATIO
[2016-01-07] MEDS: RANITIDINE HCL SYRUP 150 MG/10 ML UDC PO SCH ×2 (08:03→22:21)
[2016-01-07] MEDS: CHLORHEXIDINE 0.12% (ORAL KIT) 15 ML CUP MT SCH ×2 (08:03→22:21)
[2016-01-07] MEDS: SODIUM CHLORIDE 0.9% FLUSH 5 ML FLUSH IVF PRN (08:03)
[2016-01-07] MEDS: SENNOSIDES SYRUP 8.8 MG/5 ML CUP TUBE SCH (08:03)
[2016-01-07] MEDS: levETIRAcetam 500 MG/5 ML UDC TUBE SCH ×2 (08:03→22:22)
[2016-01-07] MEDS: DOCUSATE SODIUM 100 MG/10 ML UDC TUBE SCH ×2 (08:03→22:21)
[2016-01-07] MEDS: LACTOBACILLUS ACIDOPHILUS 1 GM PACKET TUBE SCH ×2 (08:04→22:21)
[2016-01-07] MEDS: ACETAMINOPHEN/HYDROcodone 325 MG/5 MG TAB PO PRN (08:04)
[2016-01-07] MEDS: ENOXAPARIN SODIUM 100 MG/ML SYRINGE SQ SCH ×2 (08:04→22:21)
--- NOTE | 2016-01-07 08:18 | HHI.PR ---
Subjective Remarks Patient seen in room in follow up for metabolic encephalopathy and for CVA. Overnight more responsive per RN. Some wheezes today, low grade temps. Objective Vitals Vital Signs Date Time Temp Pulse Resp B/P Pulse Ox O2 Delivery O2 Flow Rate FiO2 01/07/16 07:55 97 T-piece 5.00 28 01/07/16 06:00 98 01/07/16 04:00 100.0 99 18 130/80 97 01/07/16 04:00 99 01/07/16 02:00 94 01/07/16 00:00 99.8 91 20 127/73 98 01/07/16 00:00 91 01/06/16 22:00 86 01/06/16 21:10 100 T-piece 28 01/06/16 20:00 87 01/06/16 20:00 98.5 87 25 136/81 98 01/06/16 18:00 88 01/06/16 16:00 98.8 88 21 122/79 98 01/06/16 16:00 88 01/06/16 14:00 87 01/06/16 12:00 86 01/06/16 12:00 98.9 86 17 121/72 97 01/06/16 10:00 90 I/O 01/06/16 01/06/16 01/06/16 01/07/16 01/07/16 01/07/16 07:00 15:00 23:00 07:00 15:00 23:00 Intake Total 347 ml 675 ml 452 ml 635 ml Output Total 250 ml 400 ml 400 ml 500 ml Balance 97 ml 275 ml 52 ml 135 ml Intake Oral 0 ml 0 ml 0 ml IV Total 45 ml 94 ml 72 ml 86 ml Tube Feeding 242 ml 521 ml 380 ml 449 ml Tube Irrigant 60 ml 60 ml 0 ml 100 ml Output Urine Total 250 ml 400 ml 400 ml 500 ml Stool Total 0 ml Tube Feeding Residual Discard 0 ml 0 ml # Bowel Movements 0 0 2 Result Diagram: 01/07/16 0441 01/06/16 0543 Objective Remarks GENERAL: This is a well-nourished, well-developed patient, in no apparent distress. CARDIOVASCULAR: Regular rate and rhythm without murmurs, gallops, or rubs. RESPIRATORY: Tracheostomy Clear to auscultation. Breath sounds equal bilaterally. No wheezes, rales, or rhonchi. GASTROINTESTINAL: PEG tube Abdomen soft, non-tender, nondistended. Normal active bowel sounds MUSCULOSKELETAL: Extremities without clubbing, cyanosis, or edema. 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 Patient with resolved pneumonia (pansensitive Klebsiella 12/27 sputum) current other cultures are negative We'll continue to watch off of antibiotics cxr 01/04 unchanged (3) Acute respiratory failure Status: Acute Plan: Secondary to CVA, Status post tracheostomy. Continue rhonchi dilators and pulmonary toilet Duonebs PRN (4) A-fib Status: Acute Plan: Rate controlled, continue full anticoagulation (Lovenox and warfarin) Echocardiogram completed in November shows preserved EF INR 1.3 Discharge Planning transfer to MED SURG Cathy Lindo MD Jan 07, 2016 08:18
[2016-01-07] MEDS: RESP: ALBUTEROL 2.5 MG/IPRATROPIUM 0.5 MG NEB (PRN) NEB (11:21)
[2016-01-08] VITALS (11 sets, daily range): BP systolic 124–142; BP diastolic 71–83; PULSE 94–104; RESP 16–21; TEMP 98.6–100.6; O2SAT 96–100
[2016-01-08] MEDS: INSULIN ASPART SUPPLEMENTAL SCALE SQ SCH ×5 (00:28→22:30)
[2016-01-08 06:23] LABS: INTERNATIONAL NORMALIZED RATIO 1.5 RATIO; PROTHROMBIN TIME - PATIENT 16.1 SEC (9.8-11.4)
[2016-01-08] MEDS: SENNOSIDES SYRUP 8.8 MG/5 ML CUP TUBE SCH (08:20)
[2016-01-08] MEDS: ENOXAPARIN SODIUM 100 MG/ML SYRINGE SQ SCH ×2 (08:20→19:44)
[2016-01-08] MEDS: CHLORHEXIDINE 0.12% (ORAL KIT) 15 ML CUP MT SCH ×2 (08:20→19:47)
[2016-01-08] MEDS: RANITIDINE HCL SYRUP 150 MG/10 ML UDC PO SCH ×2 (08:20→19:44)
[2016-01-08] MEDS: LACTOBACILLUS ACIDOPHILUS 1 GM PACKET TUBE SCH ×2 (08:20→19:47)
[2016-01-08] MEDS: DOCUSATE SODIUM 100 MG/10 ML UDC TUBE SCH ×2 (08:20→19:27)
[2016-01-08] MEDS: levETIRAcetam 500 MG/5 ML UDC TUBE SCH ×2 (08:32→19:44)
[2016-01-08] MEDS: ACETAMINOPHEN 650 MG/20.3 ML UDC TUBE PRN (08:32)
--- NOTE | 2016-01-08 11:17 | HHI.PR ---
Subjective Remarks Patient seen and evaluated in follow-up for encephalopathy status post stroke. Doing well objectively. Still not consistently responsive. Plan of care discussed with spouse at bedside Objective Vitals Vital Signs Date Time Temp Pulse Resp B/P Pulse Ox O2 Delivery O2 Flow Rate FiO2 01/08/16 10:18 97 T-piece 28 01/08/16 06:00 96 01/08/16 04:00 99.8 100 21 127/77 96 01/08/16 04:00 100 01/08/16 02:00 97 01/08/16 00:00 99.7 97 17 127/71 96 01/08/16 00:00 97 01/07/16 22:19 98 T-piece 6.00 28 01/07/16 22:00 96 01/07/16 20:00 95 01/07/16 20:00 100.6 95 22 130/76 96 01/07/16 18:00 85 01/07/16 16:00 98.8 88 20 127/71 98 01/07/16 16:00 88 01/07/16 14:00 89 01/07/16 12:00 98.8 94 20 131/74 92 01/07/16 12:00 94 I/O 01/07/16 01/07/16 01/07/16 01/08/16 01/08/16 01/08/16 07:00 15:00 23:00 07:00 15:00 23:00 Intake Total 635 ml 355 ml 674 ml 448 ml Output Total 500 ml 370 ml 725 ml 550 ml Balance 135 ml -15 ml -51 ml -102 ml Intake Oral 0 ml 0 ml IV Total 86 ml 30 ml 0 ml 0 ml Tube Feeding 449 ml 325 ml 434 ml 448 ml Tube Irrigant 100 ml Other 240 ml 0 ml Output Urine Total 500 ml 370 ml 725 ml 550 ml Tube Feeding Residual Discard 0 ml 0 ml # Bowel Movements 2 0 0 0 Result Diagram: 01/07/16 0441 01/06/16 0543 Objective Remarks GENERAL: This is a well-nourished, well-developed patient, in no apparent distress. CARDIOVASCULAR: Regular rate and rhythm without murmurs, gallops, or rubs. RESPIRATORY: Tracheostomy Clear to auscultation. Breath sounds equal bilaterally. No wheezes, rales, or rhonchi. GASTROINTESTINAL: PEG tube Abdomen soft, non-tender, nondistended. Normal active bowel sounds MUSCULOSKELETAL: Extremities without clubbing, cyanosis, or edema. 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 Patient with resolved pneumonia (pansensitive Klebsiella 12/27 sputum) current other cultures are negative We'll continue to watch off of antibiotics cxr 01/04 unchanged UA 01/04 unremarkable. No leukocytosis (3) Acute respiratory failure Status: Acute Plan: Secondary to CVA, Status post tracheostomy. Continue brhonchi dilators and pulmonary toilet Duonebs PRN (4) A-fib Status: Acute Plan: Rate controlled, continue full anticoagulation (Lovenox and warfarin) Echocardiogram completed in November shows preserved EF INR 1.5 Discharge Planning transfer to MED SURG Cathy Lindo MD Jan 08, 2016 11:17
[2016-01-08] MEDS: WARFARIN SOD 5 MG TAB PO SCH (17:07)
[2016-01-08] MEDS: RESP: IPRATROPIUM 0.5 MG/2.5 ML NEB NEB SCH (20:46)
[2016-01-08] MEDS: NYSTATIN 100,000 U/GM PWD 15 GM BTL TOPICAL SCH (21:00)
[2016-01-09] VITALS (10 sets, daily range): BP systolic 115–157; BP diastolic 66–94; PULSE 100–113; RESP 20–27; TEMP 95.4–100.7; O2SAT 94–99
[2016-01-09] MEDS: CHLORHEXIDINE GLUCONATE 2 % 1 PACK (2 CLOTHS) TOP SCH (02:16)
[2016-01-09] MEDS: INSULIN ASPART SUPPLEMENTAL SCALE SQ SCH ×3 (04:58→17:20)
[2016-01-09 06:17] LABS: PROTHROMBIN TIME - PATIENT 18.8 SEC (9.8-11.4)
[2016-01-09 06:27] LABS: INTERNATIONAL NORMALIZED RATIO 1.8 RATIO
[2016-01-09] MEDS: CHLORHEXIDINE 0.12% (ORAL KIT) 15 ML CUP MT SCH ×2 (08:00→20:00)
[2016-01-09] MEDS: ENOXAPARIN SODIUM 100 MG/ML SYRINGE SQ SCH ×2 (08:26→22:34)
[2016-01-09] MEDS: RANITIDINE HCL SYRUP 150 MG/10 ML UDC PO SCH ×2 (08:26→22:34)
[2016-01-09] MEDS: SENNOSIDES SYRUP 8.8 MG/5 ML CUP TUBE SCH (08:26)
[2016-01-09] MEDS: DOCUSATE SODIUM 100 MG/10 ML UDC TUBE SCH ×2 (08:26→22:34)
[2016-01-09] MEDS: levETIRAcetam 500 MG/5 ML UDC TUBE SCH ×2 (08:26→22:34)
[2016-01-09] MEDS: LACTOBACILLUS ACIDOPHILUS 1 GM PACKET TUBE SCH ×2 (08:26→22:35)
[2016-01-09] MEDS: SODIUM CHLORIDE 0.9% FLUSH 5 ML FLUSH IVF PRN (08:27)
[2016-01-09] MEDS: NYSTATIN 100,000 U/GM PWD 15 GM BTL TOPICAL SCH ×2 (09:00→22:47)
[2016-01-09] MEDS: RESP: IPRATROPIUM 0.5 MG/2.5 ML NEB NEB SCH ×3 (09:09→19:48)
--- NOTE | 2016-01-09 12:53 | MB ---
cc: Kayy SOLITARIO M.D. DATE OF CONSULTATION: 01/08/2016 REASON FOR CONSULTATION: Pulmonary consultation. HISTORY OF PRESENT ILLNESS: Mr. Flores is a 59-year-old white male with a prior history of atrial fibrillation, hypertension, stage III a non-Hodgkin's lymphoma last year he was treated with chemotherapy. He presented on December 21 with altered mental status. He had presented in a similar fashion in November and underwent a brain biopsy apparently suspected recurrent lymphoma or some type of infection. That was subsequently reviewed and evaluated an outside facility the [facility] and the interpretation was that this represented some type of inflammatory reaction probably a subacute infarction. The patient has been hospitalized now over the last month in the intensive care unit. With the alteration in mental status on initial presentation. He ended up in respiratory failure had pneumonia. He ended up requiring a tracheostomy and percutaneous endoscopic gastrostomy tube placement on about January 02. Now he has been stable and will be transferred out of the Intensive Care Unit when a bed is available. Pulmonary is been asked to see him for any further pulmonary recommendations. The patient was a smoker up to the time of his presentation in November roughly one-half to one pack per day. Some of this information is taken from his sister and mother who were at the bedside but most of it is from the chart as they do not know the details of the record. The patient does open his eyes but can obviously provide no history. Reviewing the neurologist notes apparently he has had an infarction of the posterior base of his brain in the [place]. PAST MEDICAL HISTORY: Past history is as noted above, also [id number] diabetes. ALLERGIES None known. CURRENT MEDICATIONS: Current medications reviewed in the EMR. SOCIAL HISTORY Smoking as noted. No history of alcohol or drug abuse. PHYSICAL EXAMINATION: IN GENERAL: On physical examination middle-aged appearing [place] male with tracheostomy in place breathing spontaneously on a T-bar at 28%. VITAL SIGNS: Saturations are 95-100, pulse is 90, respirations are 18, afebrile with a blood pressure of 120/70. HEAD, EYES, EARS, NOSE, AND THROAT: sclerae anicteric. Mucous membranes are moist. NECK: Tracheostomy at the that appears clean. CHEST: The Chest is completely clear. No congestion. No wheezing or rales. No harsh murmur audible. HEART: Regular rhythm. ABDOMEN: Abdomen is soft. EXTREMITIES: SCDs in place. No edema in the legs. No other spontaneous movement of the upper and lower extremities noted. RADIOLOGIC: Chest x-ray from 01/04 is really quite clear. He has a little bit of basilar change but nothing to suggest pneumonia. No large effusions. LABORATORY FINDINGS: White count 49, 100, hemoglobin is 8.7. Last arterial blood gas on 01/04 on a T-piece 28% is pO2 is a pH 7.45, pCO2 37. Sputum culture on 01/04 normal bharti on 12/31 normal bharti last positive culture was on 12/27 Klebsiella. DISCUSSION/PLAN: Mr. Flores has had strokes resulting an altered mental status an extreme weakness. Currently very stable on a tracheostomy with T-bar with good saturations. Chest x-ray is clear. No evidence of an ongoing pulmonary infection. In light of the prior smoking history. He may have some underlying COPD so I would recommend that he continue on aerosol treatments routinely in order to prevent mucous plugging and further risk of infection. I had a long talk with his family at the bedside explained to them that the tracheostomy would stay until he was strong enough to cough and deep breathe on his own, and then provided a safer mechanism for suctioning him in the event that was required. At this point there really are no further pulmonary recommendations. We can see him as needed and if his neurologic status does improve to the extent that he is stronger and is able to cough and deep breathe and protect his airway then consideration for on tracheostomy removal could be made at that time. R. MD SOFIE Theodore/earl /6:03 PM /12:43 PM
--- NOTE | 2016-01-09 13:29 | HHI.PR ---
Subjective Remarks Cephalopathy status post brain injury related to severe stroke. No events overnight. [facility] Family aware severe neurological deficits Objective Vitals Vital Signs Date Time Temp Pulse Resp B/P Pulse Ox O2 Delivery O2 Flow Rate FiO2 01/09/16 12:00 98.8 111 22 126/82 96 01/09/16 09:11 99 T-piece 28 01/09/16 08:00 106 01/09/16 08:00 100.0 104 22 122/71 95 01/09/16 06:00 113 01/09/16 04:00 100.7 103 23 115/66 96 01/09/16 04:00 103 01/09/16 02:00 100 01/09/16 00:00 111 01/09/16 00:00 99.6 111 27 157/93 97 01/08/16 22:00 104 01/08/16 20:45 96 T-piece 5.00 28 01/08/16 20:00 96 01/08/16 20:00 99.1 96 19 142/83 99 01/08/16 16:00 94 I/O 01/08/16 01/08/16 01/08/16 01/09/16 01/09/16 01/09/16 07:00 15:00 23:00 07:00 15:00 23:00 Intake Total 448 ml 668 ml 239 ml 417 ml Output Total 550 ml 500 ml 350 ml 355.0 ml Balance -102 ml 168 ml -111 ml 62.0 ml Intake Oral 0 ml 0 ml IV Total 0 ml 0 ml Tube Feeding 448 ml 468 ml 239 ml 417 ml Other 0 ml 200 ml Output Urine Total 550 ml 500 ml 350 ml 350 ml Tube Feeding Residual Discard 5.0 ml Bladder Scan Volume Amount 392 ml 392 ml # Bowel Movements 0 2 2 0 Result Diagram: 01/07/16 0441 01/06/16 0543 Objective Remarks GENERAL: This is a well-nourished, well-developed patient, in no apparent distress. CARDIOVASCULAR: Regular rate and rhythm without murmurs, gallops, or rubs. RESPIRATORY: Tracheostomy Clear to auscultation. Breath sounds equal bilaterally. No wheezes, rales, or rhonchi. GASTROINTESTINAL: PEG tube Abdomen soft, non-tender, nondistended. Normal active bowel sounds MUSCULOSKELETAL: Extremities without clubbing, cyanosis, or edema. 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 Patient with resolved pneumonia (pansensitive Klebsiella 12/27 sputum) current other cultures are negative We'll continue to watch off of antibiotics cxr 01/04 unchanged UA 01/04 unremarkable. No leukocytosis (3) Acute respiratory failure Status: Acute Plan: Secondary to CVA, Status post tracheostomy. Continue bronchi dilators and pulmonary toilet Duonebs PRN Pulmonary consult appreciated (4) A-fib Status: Acute Plan: Rate controlled, continue full anticoagulation (Lovenox and warfarin) Echocardiogram completed in November shows preserved EF INR 1.8 (5) Non-Hodgkin lymphoma Status: Chronic Plan: s/p brain biopsy on December 13, by Neurosurgery, Dr. Marin - Pathology consistent with acute infarct without evidence of lymphoma Seen by Oncology, Dr. Whyte, who has signed off for current admission as no active oncology issues Continue anti-coagulation with Lovenox 1 mg/kg q12 as bridge to Coumadin with goal INR 2-3 Catyh Lindo MD Jan 09, 2016 13:29
--- NOTE | 2016-01-09 15:26 | HHI.HCSW ---
Digester Operator Visit Significant Family/Friend Spoke with daughter, Leanne. She provided much information in terms of psychosocial hx, see below. Family meeting arranged for tomorrow, 01-10-16 at 4pm. Leanne is coordinating getting her sister, Ginny, and brother, Gerald, to be available by phone. Leanne expressed to me she feels like her father "is still in there". Provided emotional support and normalized feelings. . Pertinent Social History Mr. Flores is originally from [place]. He moved to the around 35 years ago, first to [place] and later to [place]. He is not legally but remains with his ex-, Leanne. They have been together for 31+ years and have three children together: Leanne, Gerald, and Ginny. Gerald is currently in [employer] for work. Mr. Flores has 2 brothers and 7 sisters. His father is of old age. His mother is alive and was living with the patient. There is no reported illness in the family, Leanne will attempt to find out more prior to family meeting tomorrow. 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 He is described as a "heavy smoker since age 14". Reported to smoke at least 1PPD, increasingly more in the past year relating to anxiety and fear of cancer returning. Denies alcohol use. He is described as an animated and charismatic man. He best responds to slow and clear speech, as Spanish is his second language. He reportedly responds well to positive reinforcement at well. . Quality of Life Values/Goals He is very much a family man, he comes from a large family and has a good support system. . Advance Directive In speaking with his daughter Leanne, she does not believe he has ever completed advanced directives. Explained to her, if he is unable to make medical decisions for himself, per [place] Statutes, medical proxy decision making would fall to the majority of adult children, as Mr. Flores is not legally . She repots she and her siblings are willing and have been involved since the beginning. They are supported by their mother, patient's ex- and current significant other, Leanne. Important Contacts Leanne, daughter: [phone] Ginny, daughter: [phone] Gerald, son: currently in [facility] for work but has communication with his siblings. Leanne, ex-: [phone] . Follow Up Visit Family meeting scheduled for 01-10-16 at 4pm. Palliative care will continue to follow throughout hospitalization. SW will follow for emotional and social support. Shelly Jones Jan 09, 2016 15:26
[2016-01-09] MEDS: WARFARIN SOD 5 MG TAB PO SCH (17:21)
[2016-01-09] MEDS: ACETAMINOPHEN/HYDROcodone 325 MG/5 MG TAB PO PRN (22:35)
[2016-01-10] VITALS (11 sets, daily range): BP systolic 123–136; BP diastolic 70–89; PULSE 82–128; RESP 18–23; TEMP 96.8–98.9; O2SAT 63–99
[2016-01-10] MEDS: INSULIN ASPART SUPPLEMENTAL SCALE SQ SCH ×4 (00:37→17:10)
[2016-01-10] MEDS: CHLORHEXIDINE GLUCONATE 2 % 1 PACK (2 CLOTHS) TOP SCH (04:18)
[2016-01-10] MEDS: RESP: ALBUTEROL 2.5 MG/IPRATROPIUM 0.5 MG NEB (PRN) NEB ×2 (04:54→08:51)
[2016-01-10] MEDS: CHLORHEXIDINE 0.12% (ORAL KIT) 15 ML CUP MT SCH ×2 (08:00→20:15)
[2016-01-10] MEDS: RANITIDINE HCL SYRUP 150 MG/10 ML UDC PO SCH ×2 (08:07→23:11)
[2016-01-10] MEDS: SENNOSIDES SYRUP 8.8 MG/5 ML CUP TUBE SCH (08:07)
[2016-01-10] MEDS: ENOXAPARIN SODIUM 100 MG/ML SYRINGE SQ SCH ×2 (08:07→23:12)
[2016-01-10] MEDS: LACTOBACILLUS ACIDOPHILUS 1 GM PACKET TUBE SCH ×2 (08:07→23:12)
[2016-01-10] MEDS: levETIRAcetam 500 MG/5 ML UDC TUBE SCH ×2 (08:07→23:11)
[2016-01-10] MEDS: DOCUSATE SODIUM 100 MG/10 ML UDC TUBE SCH ×2 (08:07→23:11)
[2016-01-10] MEDS: NYSTATIN 100,000 U/GM PWD 15 GM BTL TOPICAL SCH ×2 (08:08→23:12)
[2016-01-10] MEDS: SODIUM CHLORIDE 0.9% FLUSH 5 ML FLUSH IVF PRN (08:08)
[2016-01-10] MEDS: RESP: IPRATROPIUM 0.5 MG/2.5 ML NEB NEB SCH ×3 (08:50→21:10)
[2016-01-10 08:59] LABS: HEMATOCRIT 32.6 % (39.0-51.0); MEAN CORPUSCULAR HEMOGLOBIN 26.7 PG (27.0-34.0); MEAN CORPUSCULAR HGB CONC 32.2 % (32.0-36.0); PLATELET COUNT 292 TH/MM3 (150-450); RED BLOOD COUNT 3.93 MIL/MM3 (4.50-5.90); RED CELL DISTRIBUTION WIDTH 14.7 % (11.6-17.2); REVIEW FLAG FINAL; WHITE BLOOD COUNT 6.6 TH/MM3 (4.0-11.0)
[2016-01-10 09:03] LABS: INTERNATIONAL NORMALIZED RATIO 1.7 RATIO; PROTHROMBIN TIME - PATIENT 18.3 SEC (9.8-11.4)
[2016-01-10 09:28] LABS: BICARBONATE 27.8 MEQ/L (21.0-32.0); POTASSIUM 3.8 MEQ/L (3.5-5.1)
--- NOTE | 2016-01-10 10:14 | PD.CONS ---
Consult Service Palliative Care Consult Requested By Dr Jorge Luis Lindo Primary Care Physician Non-Staff Reason for Consultation a. To assist with evaluation and management of symptoms including: dyspnea, encephalopathy, depression b. To assist medical decision maker(s) with: better understanding of current medical conditions; weighing benefits/burdens of medical treatment options; making medical treatment decisions. HPI History of Present Illness This 59-year-old patient was admitted on 12/21/15 via the ED for facial drooping. ED physician notes that patient and patients are poor historians, EMS reported the could not provide good timelines to them. Patient also reported headache, difficulty ambulating. He had known history of recent findings of mass in the brain. During ED course had deterioration of clinical condition and able to protect his airway, unable to follow commands patient was intubated and CT brain obtained. He was admitted for further evaluation and management to the ICU. Construction Inspector was consulted and following patient. Pathology on recent brain biopsy (12/13) still pending. CLINICAL/HOSPITAL COURSE: * CT brain= no focal or acute intracranial hemorrhage. New area decreased density in left occipital lobe suggestive of recent nonhemorrhagic infarct, decreased density in previously noted right occipital lobe has increased in size * Brain MRI = new area of restricted diffusion within left occipital lobe suggesting acute infarct. Interval enlargement of the area of restricted diffusion within right occipital lobe suggesting probable extension of right occipital and started on. Underlying enhancement of right occipital lobe is slightly worse than the previous exam and nonspecific. Biopsy has been performed and results are pending. Tiny focal area of restricted diffusion within right cerebellar hemisphere consistent with probable acute/subacute lacunar infarct. Signal abnormality in the SWI sequence within the right occipital lobe suggesting some hemorrhage in biopsy bed. No midline shift or extra-axial fluid collections. * CXR= no acute cardiopulmonary disease * -Neurology consulted, ordered MRA to look for vertebrobasilar stenosis, echo done last admission notes normal EF with normal valves and normal left atrial size. EEG also ordered. MR venogram ordered. EEG= abnormal study consistent with her encephalopathy. MRV indicated basilar occlusion; neurology notes discussion with family regarding chemical code only, also notes discussion regarding risks associated with the anticoagulates, was discussed with radiologist/INR recommended not helpful to extract basilar clot as this could result in patient's . It was felt the colin was infarcted. Further neurology notes "he could be locked in", is acting as if colin is infarcted. * Oncology known to patient also consulted for non-Hodgkin's lymphoma: Dr Whyte documents that there was no evidence of residual or recurrent disease on CT scans of chest, abdomen, pelvis done in October and November of this year. Pathology was still pending, had been sent to [facility] for second opinion. No acute oncology interventions recommended at that time, will follow. * 12/23 - 12/25 febrile. CPAP trials. Remains on vent off of sedation. Withdrawing to pain. Repeat brain MRI= evolving brainstem stroke. Neurology notes extensive discussion with family, notes discussion the patient is locked in but fully aware, family would like to see help patient does over the next 3 months. 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 Biopsy brain lesion appears consistent with acute infarct no lymphoma. Family desires ongoing aggressive measures, will proceed with tracheostomy. Sputum culture positive sensitive Klebsiella. * 01/01 tracheostomy, PEG tube placement * 01/04 trach collar trials, alternating with T piece. Low-grade fever 100.5. CXR = mild bibasilar atelectasis. Neuro: Spontaneously opening eyes, looking up / down, directionally to commands. * 01/07 still "locked in " , transferred off ICU to regular floor. * 01/08 pulmonology consulted-not CXR clear no evidence of pulmonary infection. He may have some underlying COPD recommends continued aerosol treatments. Further notes long discussion with family at bedside regarding tracheostomy, long-term use of trach until patient able to protect his airway, no further recommendations. Palliative care consulted to assist with clarification of goals of treatment. Function/Cognitive Trajectory Patient lives at home with family, functioned independently, cognitively sharp prior to most recent event which prompted biopsy taken on 12/13 . 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 Past Surgical History Brain bx December 14, 2015 Left arm surgery . Reported Medications Omeprazole (Omeprazole) 20 Mg Tab 20 Mg PO DAILY Phenergan (Promethazine HCl) 25 Mg Tab 12.5 Mg PO Q8HR PRN Decadron 2 mg (Dexamethasone) 2 Mg Tab 1 Tab PO DIRECTED Decrease dose as directed until finish all the meds 2 mg TID for 4 days 2 mg BID for 4 days 2 mg daily for 4 days 2 mg every other days for 8 days Lorazepam 0.5 Mg Tab 0.5 Mg PO Q8HR PRN Habitrol 21 mg/24 Hr Patch (Nicotine) 1 Patch Patch 1 Patch TD DAILY 30 Days Keppra (Levetiracetam) 250 Mg Tab 750 Mg PO BID 30 Days Glucophage 500 mg (Metformin HCl) 500 Mg Tab 500 Mg PO DAILY Lipitor 40 Mg Tab (Atorvastatin Calcium) 40 Mg Tab 40 Mg PO HS . Current Medications Medications (Trade) Dose Ordered Sig/Junior Route Start Time Stop Time Status Last Admin (NS Flush) 2 ml UNSCH PRN IVF 12/21/15 06:00 01/10/16 08:08 Miscellaneous Information 1 Q361D XX 12/21/15 13:00 12/21/15 13:00 (Chlorhexidine 2% Cloth) 3 pack Taper DAILY@04 TOP 12/22/15 04:00 12/17/16 03:59 01/10/16 04:18 (Chlorhexidine 2% Cloth) 3 pack UNSCH PRN TOP 12/21/15 13:00 (D50w (Vial) Inj) 25 ml UNSCH PRN IV PUSH 12/21/15 13:00 (Glucagon Inj) 1 mg UNSCH PRN OTHER 12/21/15 13:00 (Peridex 0.12% Liq) 15 ml BID@08,20 MT 12/22/15 20:00 01/10/16 08:00 (Keppra Liq) 500 mg Q12HR TUBE 12/27/15 21:00 01/10/16 08:07 (Colace Liq) 100 mg Q12HR TUBE 12/27/15 21:00 01/10/16 08:07 (Senna Liq) 8.8 mg DAILY TUBE 12/27/15 17:00 01/10/16 08:07 (Tylenol 650 Mg/ 20 ml Liq) 650 mg Q6H PRN TUBE 12/30/15 15:15 01/08/16 08:32 (Lactinex Pkt) 1 gm BID TUBE 12/30/15 21:00 01/10/16 08:07 (Mansfield 5-325 Mg) 1 tab Q6H PRN PO 12/31/15 15:00 01/09/16 22:35 Fentanyl Citrate 25 mcg 25 mcg Q1H PRN IV PUSH 12/31/15 15:00 (NS 1000 ml Inj) 1,000 ml @ 0 mls/hr Q0M IV 01/03/16 10:15 (Zantac Liq) 150 mg Q12HR PO 01/04/16 09:00 01/10/16 08:07 (Lovenox Inj) 90 mg Q12HR SQ 01/04/16 09:00 01/10/16 08:07 Insulin Aspart 1 1 Q6HR SQ 01/04/16 12:00 01/10/16 06:17 (Coumadin Consult Pharmacy) 0 ml @ 0 mls/hr UNSCH XX 01/04/16 12:30 (Mycostatin Powder) 1 applic Q12HR TOPICAL 01/08/16 21:00 01/10/16 08:08 (Coumadin) 5 mg DAILY@1600 PO 01/11/16 16:00 (Coumadin) 6 mg ONCE PO 01/10/16 16:00 01/10/16 21:00 Family History Per EMR family history negative for cancer, seizure, stroke; per nursing admission screening family history of hypertension, diabetes . Substance Use Tobacco: Former smoker, one half PPD Alcohol: None Prescription med abuse: None Illicits: None . Psychosocial History As per palliative health and social care teacher Jessenia Jones [employer], discussion with patient daughter : Mr. Flores is originally from [place]. He moved to the around 35 years ago, first to [place] and later to [place]. He is not legally but remains with his ex-, Leanne. They have been together for 31+ years and have three children together: Leanne, Gerald, and Ginny. Gerald is currently in [facility] for work. Mr. Flores has 2 brothers and 7 sisters. His father is of old age. His mother is alive and was living with the patient. Greatly enjoys his family. Retired. 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 [employer], well supported by community construction coordinator known to them. Living Will: Never completed Health Care Surrogate: Never completed Ethical and Legal Issues Patient due to clinical condition is currently unable to participate in medical decision making. Not clear if or when he will regain this ability. Family does not believe he has completed advance directives. per [place] Statutes, medical proxy decision making would fall to the majority of adult children, as Mr. Flores is not legally . . Physical Exam Vital Signs Date Time Temp Pulse Resp B/P Pulse Ox O2 Delivery O2 Flow Rate FiO2 01/10/16 08:53 63 T-piece 28 01/10/16 08:35 108 01/10/16 08:00 98.9 119 23 135/81 99 01/10/16 04:00 97.0 82 18 130/74 95 01/10/16 01:22 105 01/10/16 00:00 98.5 92 18 130/87 98 01/09/16 23:35 18 01/09/16 20:00 95.4 102 20 136/71 96 01/09/16 19:49 94 T-piece 5.00 28 01/09/16 16:00 98.9 106 20 130/94 96 01/09/16 12:00 98.8 111 22 126/82 96 01/09/16 01/10/16 19:00 07:00 Intake Total 1027 ml Output Total 200 ml 450 ml Balance -200 ml 577 ml Tube Feeding 1027 ml Output Urine Total 200 ml 450 ml Exam CONSTITUTIONAL/GENERAL: This is an adequately nourished patient, awake, no apparent distress (*tearful at times) TUBES/LINES/DRAINS: PIV upper extremity, Arevalo catheter, PEG tube, tracheostomy , SCDs SKIN: No jaundice, rashes, or lesions.No wounds seen anteriorly. Skin temperature appropriate. Not diaphoretic. HEAD: Atraumatic. Normocephalic. EYES: Pupils equal and round and reactive. + lateral movement of eyes. No scleral icterus. No injection or drainage. Fundi not examined. ENT: Nose without bleeding or purulent drainage. Throat without visible erythema, exudates, masses, or lesions. NECK: Trachea midline. Tracheostomy patent. Supple, nontender. No palpable thyroid enlargement or nodularity. CARDIOVASCULAR: Regular rate and rhythm without murmurs. No JVD. Peripheral pulses symmetric. RESPIRATORY/CHEST: Symmetric, unlabored respirations. Clear to auscultation. Breath sounds equal bilaterally. GASTROINTESTINAL: Abdomen soft, non-tender, nondistended. ?slight firmness mid lower abd. No palpable masses. Bowel sounds normoactive.TF infusing to PEG GENITOURINARY: Without palpable bladder distension. Arevalo catheter in place. MUSCULOSKELETAL: Extremities without clubbing, cyanosis, or edema. No joint effusion noted. No mottling or clubbing. LYMPHATICS: No palpable cervical or supraclavicular adenopathy. NEUROLOGICAL: Awake and alert. Appears to make eye contact with examiner.+ lateral movement of eyes. Nonverbal unable to assess orientation, does not follow commands or nod to questions, extremities flaccid. Does become tearful as I am speaking to him RE hospital course and purpose of visit. PSYCHIATRIC: Difficult to fully assess due to clinical condition. ? possible depression, situational sadness, tearful. no apparent hallucinations or other psychotic thought process. Diagnostic Tests Laboratory Laboratory Tests Test 01/08/16 01/09/16 01/10/16 04:50 05:34 07:17 Prothrombin Time 16.1 SEC 18.8 SEC 18.3 SEC (9.8-11.4) (9.8-11.4) (9.8-11.4) Prothromb Time International 1.5 RATIO 1.8 RATIO 1.7 RATIO Ratio White Blood Count 6.6 TH/MM3 (4.0-11.0) Red Blood Count 3.93 MIL/MM3 (4.50-5.90) Hemoglobin 10.5 GM/DL (13.0-17.0) Hematocrit 32.6 % (39.0-51.0) Mean Corpuscular Volume 83.0 FL (80.0-100.0) Mean Corpuscular Hemoglobin 26.7 PG (27.0-34.0) Mean Corpuscular Hemoglobin 32.2 % Concent (32.0-36.0) Red Cell Distribution Width 14.7 % (11.6-17.2) Platelet Count 292 TH/MM3 (150-450) Mean Platelet Volume 9.0 FL (7.0-11.0) Sodium Level 136 MEQ/L (136-145) Potassium Level 3.8 MEQ/L (3.5-5.1) Chloride Level 98 MEQ/L (98-107) Carbon Dioxide Level 27.8 MEQ/L (21.0-32.0) Anion Gap 10 MEQ/L (5-15) Blood Urea Nitrogen 22 MG/DL (7-18) Creatinine 0.63 MG/DL (0.60-1.30) Estimat Glomerular Filtration 130 ML/MIN Rate (>89) Random Glucose 159 MG/DL (74-106) Calcium Level 9.4 MG/DL (8.5-10.1) Result Diagram: 01/10/16 0717 01/10/16 0717 Microbiology Microbiology Date/Time Procedure Status Source Growth 01/05/16 22:57 Gram Stain - Final Complete Sputum Endotracheal 01/05/16 22:57 Sputum Culture - Final Complete Sputum Endotracheal HEAVY GROWTH NORMAL RESPIRATORY [facility] Imaging Last Impressions Chest X-Ray 01/05/16 0600 Signed Impressions: Service Date/Time: Tuesday, January 05, 2016 05:00 - CONCLUSION: Mild bibasilar atelectasis. No significant change. 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 No evidence of carotid stenosis. Glen Zamora MD Head Magnetic Resonance Angiography 12/22/15 1445 Signed Impressions: Service Date/Time: Tuesday, December 22, 2015 09:22 - CONCLUSION: 1. 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 2. Anterior circulation remains patent without aneurysmal disease. Bobby Gray MD Head/Brain Mag Res Venography 12/22/15 0000 Signed Impressions: Service Date/Time: Tuesday, December 22, 2015 09:22 - CONCLUSION: Normal MRV. Jonel Jones Jr., MD Head CT 12/21/15 0546 Signed Impressions: Service Date/Time: December 06:01 - CONCLUSION: 1. No focal or acute intracranial hemorrhage. 2. There is a new area of decreased density in the left occipital lobe suggestive of a recent nonhemorrhagic infarction. 3. The decreased density in the previously noted right occipital lobe has increased in size. Michael Hamilton MD Procedures * 01/01 tracheostomy, PEG tube placement . Patient/Family Conference Present at Family Conference: Daughter, significant other(ex-) cousin, brother, son via speaker phone Family Conference Time (mins): 50 Family Conference Location: [facility] Issues Discussed: family meeting planned for today 01/09 at 4 PM. Met with family above listed. Discussion included: * Palliative care role, purpose, approach * Additional medical, psychosocial, and spiritual history * Patients general health, functional status, and cognitive changes in the months leading up to the current hospitalization * Patient/family understanding of the current medical problems * Patient/family understanding of prognosis * Patients goals of care as best understood from advance directives and/or conversations and/or values * Current medical treatment options and benefits/burdens of those options-much review of general prognosis and limited functional recovery that can be 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 * Likely scenarios comparing ongoing aggressive care with a transition to comfort measures only--very gently and briefly explore that some patients might elect to continue ongoing aggressive treatments however some patients might indicate that he did not desire ongoing aggressive treatments and would instead want to be made comfortable and not want further heroic or aggressive measures. Family indicates that Vilma is a very optimistic man, a fighter and that they know he would want to continue to fight, as long as he has the love and support of his family. * Questions answered to the best of my ability * Palliative care contact information provided Met with family approximately 50 minutes. At my arrival construction coordinator initially in with patient and family, met with them following. Discussion as per above. Initially they had many questions regarding admission and biopsy which occurred in November, they ask about differentials and decision making leading to the biopsy, and have many concerns regarding that clinical course--advised that I could not speak to any of those questions or processes as I was not involved in his care and decision making at that time, recommend them to direct those specific questions to those initial providers which provided those services. Otherwise review of conditions, goals as detailed in "issues discussed" above. Family expresses that Mr. Flores did remarkably well following his chemotherapy for lymphoma just last year, and that he had been doing fine until recent issue in November. They endorsed that he is a fighter, that he is a very optimistic person, and that they are certain he is "in there "and would want to continue fighting for whatever recovery he might have. They have many questions regarding rehabilitation services and placement as well as financial coverage for these services, advised that case management could assist them with the various applications which already in process, but that any placement would depend on funding, or alternatively coleman placement which is up to any individual institution. They would like to maximize PT/OT/ST ongoing while here in the hospital. They also request courtesy consult of to follow him for pulmonary as he is known to the family through their methodist. 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; EEG indicates encephalopathy, neuro following patient felt to be in a "locked-in "state (2) Non-Hodgkin lymphoma Comment: -In remission status post chemotherapy completed May 2015 (3) Acute respiratory failure Comment: Pulmonology following, medical management (4) A-fib (5) Status post stereotactic brain biopsy (6) Brain lesion Comment: Status post biopsy November 2015; pathology consistent with acute infarct without evidence of lymphoma (7) DM (diabetes mellitus) Symptom Scale: (1) Dysphagia Comment: Status post significant CVA, has had PEG tube placed (2) Dyspnea Comment: Respiratory failure secondary to CVA, status post tracheostomy, pulmonary following (3) Encephalopathy Comment: Significant CVA, "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 Albumin 2.4. (5) Depression Comment: At risk for related to "locked in status", communication difficulties , situational, but would likely benefit from anti-depressant Pertinent Non-Medical Issues * Psychosocial:Mr. Flores is originally from [place]. He moved to the [place] around [place] years ago, first to [place] and later to [place]. He is not legally but remains with his ex-, Leanne. They have been together for 31+ years and have three children together: Leanne, Gerald, and Ginny. Gerald is currently in [employer] for work. Mr. Flores has 2 brothers and 7 sisters. His father is of old age. His mother is alive and was living with the patient. Greatly enjoys his family. Retired. 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 * Spiritual: * Legal:Patient due to clinical condition is currently unable to participate in medical decision making. Not clear if or when he will regain this ability. Family does not believe he has completed advance directives. per [place] Statutes, medical proxy decision making would fall to the majority of adult children, as Mr. Flores is not legally . * Ethical issues impacting care: Important Contacts Leanne, daughter: [phone] Ginny, daughter: [phone] Gerald, son: currently in [facility] for work but has communication with his siblings. Leanne, ex-: [phone] Prognosis This patient has had 20 day hospital course thus far, admitted on 62 for a large brainstem infarct, bilateral occipital infarcts. He has subsequently had ongoing encephalopathy and severe communication limitations, neurology feels he is in a "locked-in "state. He has suffered from respiratory failure likely secondary to significant CVA. Appears he should be able to survive this acute hospitalization, however not clear when or if he will regain ability to communicate, based on current assessments patient will require long-term care placement. He will remain high risk for potential competition/setbacks due to immobile status including infections, DVT etc. . Code Status: Full Code Plan * GOALS: Very aggressive. See family conference component for additional detail. Meeting In summary: Initially they had many questions regarding admission and biopsy which occurred in November, they ask about differentials and decision making leading to the biopsy, and have many concerns regarding that clinical course--advised that I could not speak to any of those questions or processes as I was not involved in his care and decision making at that time, recommend them to direct those specific questions to those initial providers which provided those services. Otherwise review of conditions, goals as detailed in "issues discussed". Family expresses that Mr. Flores did remarkably well following his chemotherapy for lymphoma just last year, and that he had been doing fine until recent issue in November. They endorsed that he is a fighter, that he is a very optimistic person, and that they are certain he is "in there "and would want to continue fighting for whatever recovery he might have." They have many questions regarding rehabilitation services and placement as well as financial coverage for these services, advised that case management could assist them with the various applications which already in process, but that any placement would depend on funding, or alternatively coleman placement which is up to any individual institution. They would like to maximize PT/OT/ST ongoing while here in the hospital. * They also request courtesy consult of to follow him for pulmonary as he is known to the family through their methodist. 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 Albumin 2.4.; tolerating TF == depression/anxiety -- At risk for related to "locked in status", communication difficulties, situational, but would likely benefit from anti- depressant. Family reports tearful at times when they talk to him. Consider Celexa 20mg QD, titrate up if needed. * Palliative care will continue to follow during hospital course as condition evolves, to assist patient/decision-maker with understanding of medical conditions, weighing benefits/burdens of treatment options, for clarification of goals of treatment. Additionally will assist with any symptoms of palliative concern . Time Spent Total Floor Time (mins): 75 Face to Face Time (mins): 50 >50% Counseling/Coord of Care: Yes Thank you for the opportunity to participate in the care of Mr. Flores. Attestation To help prompt me to consider important information that might be impacting today's encounter and assessment, information from prior notes written by myself or my colleagues may have been "brought forward" into today's note. My signature on this note, however, is an attestation that I personally performed the exam, history, and/or decision-making noted today, and, unless otherwise indicated, the interactions with patient, family, and staff as well as the review of records all occurred today. I also attest that the listed assessment and stated plan reflect my best clinical judgment today based on the combination of historical information, prior notes, and today's exam/ interactions. When time spent is documented, it refers only to time spent today by the signer, or if indicated, combined time spent today by collaborating physician/nurse practitioner. Tiara Colin Jan 10, 2016 10:14
--- NOTE | 2016-01-10 11:06 | HHI.PR ---
Subjective Remarks Patient seen and evaluated urgently this morning due to elevated heart rate. Patient isn't SVT with heart rate in the 130s persistently. He does have a history of atrial fibrillation and had been on Betapace. Patient's heart rate had until now been rather controlled. No other distress. Respiratory status and blood pressure have been stable and INR is 1.7 today. Palliative care consult appreciated. Family meeting later this afternoon. Care plan discussed with MedSurg are in and with mom at bedside today Objective Vitals Vital Signs Date Time Temp Pulse Resp B/P Pulse Ox O2 Delivery O2 Flow Rate FiO2 01/10/16 08:53 63 T-piece 28 01/10/16 08:35 108 01/10/16 08:00 98.9 119 23 135/81 99 01/10/16 04:00 97.0 82 18 130/74 95 01/10/16 01:22 105 01/10/16 00:00 98.5 92 18 130/87 98 01/09/16 23:35 18 01/09/16 20:00 95.4 102 20 136/71 96 01/09/16 19:49 94 T-piece 5.00 28 01/09/16 16:00 98.9 106 20 130/94 96 01/09/16 12:00 98.8 111 22 126/82 96 I/O 01/09/16 01/09/16 01/09/16 01/10/16 01/10/16 01/10/16 07:00 15:00 23:00 07:00 15:00 23:00 Intake Total 417 ml 1027 ml Output Total 355.0 ml 200 ml 450 ml Balance 62.0 ml -200 ml 1027 ml -450 ml Tube Feeding 417 ml 1027 ml Output Urine Total 350 ml 200 ml 450 ml Tube Feeding Residual Discard 5.0 ml # Bowel Movements 0 Result Diagram: 01/10/1671601/10/16716 Objective Remarks GENERAL: This is a well-nourished, well-developed patient, in no apparent distress. CARDIOVASCULAR: Sinus tach without murmurs, gallops, or rubs. RESPIRATORY: Tracheostomy Clear to auscultation. Breath sounds equal bilaterally. No wheezes, rales, or rhonchi. GASTROINTESTINAL: PEG tube Abdomen soft, non-tender, nondistended. Normal active bowel sounds MUSCULOSKELETAL: Extremities without clubbing, cyanosis, or edema. 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 Patient with resolved pneumonia (pansensitive Klebsiella 12/27 sputum) current other cultures are negative We'll continue to watch off of antibiotics cxr 01/04 unchanged UA 01/04 unremarkable. No leukocytosis (3) Acute respiratory failure Status: Acute Plan: Secondary to CVA, Status post tracheostomy. Continue bronchi dilators and pulmonary toilet Duonebs PRN Pulmonary consult appreciated (4) A-fib Status: Acute Plan: Sinus tachycardia off Betapace today. Start Lopressor per tube continue full anticoagulation (Lovenox and warfarin) Echocardiogram completed in November shows preserved EF INR 1.7 (5) Non-Hodgkin lymphoma Status: Chronic Plan: s/p brain biopsy on December 13, by Neurosurgery, Dr. Marin - Pathology consistent with acute infarct without evidence of lymphoma Seen by Oncology, Dr. Whyte, who has signed off for current admission as no active oncology issues Continue anti-coagulation with Lovenox 1 mg/kg q12 as bridge to Coumadin with goal INR 2-3 Cathy Lindo MD Jan 10, 2016 11:06
[2016-01-10] MEDS: METOPROLOL TARTRATE 50 MG TAB GT SCH ×2 (11:33→23:09)
[2016-01-11] VITALS (10 sets, daily range): BP systolic 123–153; BP diastolic 68–96; PULSE 96–120; RESP 18–28; TEMP 96.6–98.9; O2SAT 94–99
[2016-01-11] MEDS: INSULIN ASPART SUPPLEMENTAL SCALE SQ SCH ×4 (00:14→16:56)
--- NOTE | 2016-01-11 00:17 | EKG ---
Date Performed: 01/10/2016 Time Performed: 11:29:30 PTAGE: 60 years EKG: Sinus tachycardia. Left axis deviation Borderline ECG PREVIOUS TRACING : 12/21/2015 05.46 Compared to the previous tracing, a fib no longer present DOCTOR: Mary Kate Mcgill Interpretating Date/Time 01/11/2016 00:14:59
[2016-01-11] MEDS: CHLORHEXIDINE GLUCONATE 2 % 1 PACK (2 CLOTHS) TOP SCH (04:10)
[2016-01-11] MEDS: CHLORHEXIDINE 0.12% (ORAL KIT) 15 ML CUP MT SCH ×2 (08:00→20:00)
[2016-01-11 08:07] LABS: INTERNATIONAL NORMALIZED RATIO 1.9 RATIO; PROTHROMBIN TIME - PATIENT 20.8 SEC (9.8-11.4)
[2016-01-11] MEDS: RESP: IPRATROPIUM 0.5 MG/2.5 ML NEB NEB SCH ×3 (08:32→19:49)
[2016-01-11] MEDS: NYSTATIN 100,000 U/GM PWD 15 GM BTL TOPICAL SCH ×2 (09:00→21:00)
[2016-01-11] MEDS: levETIRAcetam 500 MG/5 ML UDC TUBE SCH ×2 (10:01→22:22)
[2016-01-11] MEDS: ENOXAPARIN SODIUM 100 MG/ML SYRINGE SQ SCH (10:01)
[2016-01-11] MEDS: RANITIDINE HCL SYRUP 150 MG/10 ML UDC PO SCH ×2 (10:01→22:22)
[2016-01-11] MEDS: SENNOSIDES SYRUP 8.8 MG/5 ML CUP TUBE SCH (10:02)
[2016-01-11] MEDS: LACTOBACILLUS ACIDOPHILUS 1 GM PACKET TUBE SCH ×2 (10:02→21:00)
[2016-01-11] MEDS: METOPROLOL TARTRATE 50 MG TAB GT SCH ×3 (10:02→16:56)
[2016-01-11] MEDS: DOCUSATE SODIUM 100 MG/10 ML UDC TUBE SCH ×2 (10:02→22:22)
--- NOTE | 2016-01-11 11:43 | HHI.HCSW ---
Splitter Hand Visit Cognitive Functioning Mr. Flores lying in bed, appears to be comfortable. Family and REHAB PHYSICIAN at bedside report he has been sleeping most of the morning. . Significant Family/Friend Mr. Flores' mother and another family member at bedside. Introduced myself and provided my contact information. They deny any questions or concerns at this time. Appreciative of palliative care involvement. . Pertinent Social History Mr. Flores is originally from [place]. He moved to the around 35 years ago, first to [place] and later to [place]. He is not legally but remains with his ex-, Leanne. They have been together for 31+ years and have three children together: Leanne, Gerald, and Ginny. Gerald is currently in [facility] for work. Mr. Flores has 2 brothers and 7 sisters. His father is of old age. His mother is alive and was living with the patient. There is no reported illness in the family, Leanne will attempt to find out more prior to family meeting tomorrow. 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 He is described as a "heavy smoker since age 14". Reported to smoke at least 1PPD, increasingly more in the past year relating to anxiety and fear of cancer returning. Denies alcohol use. He is described as an animated and charismatic man. He best responds to slow and clear speech, as [place]ian is his second language. He reportedly responds well to positive reinforcement at well. . Quality of Life Values/Goals He is very much a family man, he comes from a large family and has a good support system. . Advance Directive In previous discussion: In speaking with his daughter Leanne, she does not believe he has ever completed advanced directives. Explained to her, if he is unable to make medical decisions for himself, per [place] Statutes, medical proxy decision making would fall to the majority of adult children, as Mr. Flores is not legally . She repots she and her siblings are willing and have been involved since the beginning. They are supported by their mother, patient's ex- and current significant other, Leanne. Important Contacts Leanne, daughter: [phone] Ginny, daughter: [phone] Gerald, son: currently in [facility] for work but has communication with his siblings. Leanne, ex-: [phone] . Follow Up Visit Palliative care will continue to follow throughout hospitalization. SW will follow for emotional and social support. Shelly Jones Jan 11, 2016 11:43
--- NOTE | 2016-01-11 12:34 | HHI.PR ---
Subjective Remarks Patient seen and evaluated today in follow-up for respiratory failure and stroke with severe encephalopathy. Some improvement in neurological response per nursing team. Patient does open his eyes. Family at the bedside. Chart reviewed. Palliative care consult and family meeting appreciated. Patient with elevated blood sugars elevated heart rate Objective Vitals Vital Signs Date Time Temp Pulse Resp B/P Pulse Ox O2 Delivery O2 Flow Rate FiO2 01/11/16 08:32 94 T-piece 5.00 28 01/11/16 08:00 98.9 114 20 142/93 98 01/11/16 05:30 142/68 Automatic Cuff 01/11/16 04:00 97.7 120 28 153/96 98 01/11/16 00:00 97.3 98 18 139/96 96 01/10/16 21:10 92 T-piece 5.00 28 01/10/16 20:00 96.8 113 20 136/89 95 01/10/16 18:05 120 01/10/16 17:57 97.5 107 21 123/82 94 I/O 01/10/16 01/10/16 01/10/16 01/11/16 01/11/16 01/11/16 07:00 15:00 23:00 07:00 15:00 23:00 Intake Total 100 ml 1050 ml Output Total 450 ml 200 ml 350 ml Balance -450 ml -100 ml 700 ml Tube Feeding 1050 ml Other 100 ml Output Urine Total 450 ml 200 ml 350 ml # Voids 1 1 # Bowel Movements 0 0 0 Result Diagram: 01/10/16 0717 01/10/16 0717 Objective Remarks GENERAL: This is a well-nourished, well-developed patient, in no apparent distress. CARDIOVASCULAR: Sinus tach without murmurs, gallops, or rubs. RESPIRATORY: Tracheostomy Clear to auscultation. Breath sounds equal bilaterally. No wheezes, rales, or rhonchi. GASTROINTESTINAL: PEG tube Abdomen soft, non-tender, nondistended. Normal active bowel sounds MUSCULOSKELETAL: Extremities without clubbing, cyanosis, or edema. 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 No leukocytosis (3) Acute respiratory failure Status: Acute Plan: Secondary to CVA, Status post tracheostomy. Continue bronchi dilators and pulmonary toilet Duonebs PRN Pulmonary consult appreciated (Dr. Brandon following) Family request of Dr. felix to follow, will discuss with Dr. Rinaldi (4) A-fib Status: Acute Plan: Sinus tachycardia off Betapace Lopressor 3 times a day continue full anticoagulation with warfarin Echocardiogram completed in November shows preserved EF INR 1.9 (5) Non-Hodgkin lymphoma Status: Chronic Plan: s/p brain biopsy on December 13, by Neurosurgery, Dr. Marin - Pathology consistent with acute infarct without evidence of lymphoma Seen by Oncology, Dr. Whyte, who has signed off for current admission as no active oncology issues Continue anti-coagulation with Lovenox 1 mg/kg q12 as bridge to Coumadin with goal INR 2-3 Cathy Lindo MD Jan 11, 2016 12:34
[2016-01-12] VITALS (7 sets, daily range): BP systolic 115–151; BP diastolic 76–93; PULSE 88–116; RESP 18–24; TEMP 96.5–98.1; O2SAT 93–99
[2016-01-12] MEDS: ACETAMINOPHEN/HYDROcodone 325 MG/5 MG TAB PO PRN ×3 (03:40→21:59)
[2016-01-12] MEDS: CHLORHEXIDINE GLUCONATE 2 % 1 PACK (2 CLOTHS) TOP SCH (04:00)
[2016-01-12] MEDS: INSULIN ASPART SUPPLEMENTAL SCALE SQ SCH ×4 (06:00→18:00)
[2016-01-12] MEDS: CHLORHEXIDINE 0.12% (ORAL KIT) 15 ML CUP MT SCH (08:00)
[2016-01-12 08:12] LABS: INTERNATIONAL NORMALIZED RATIO 2.4 RATIO; PROTHROMBIN TIME - PATIENT 26.1 SEC (9.8-11.4)
[2016-01-12] MEDS: METOPROLOL TARTRATE 50 MG TAB GT SCH ×3 (08:59→18:00)
[2016-01-12] MEDS: DOCUSATE SODIUM 100 MG/10 ML UDC TUBE SCH ×2 (08:59→21:58)
[2016-01-12] MEDS: RANITIDINE HCL SYRUP 150 MG/10 ML UDC PO SCH ×2 (08:59→21:58)
[2016-01-12] MEDS: SENNOSIDES SYRUP 8.8 MG/5 ML CUP TUBE SCH (08:59)
[2016-01-12] MEDS: levETIRAcetam 500 MG/5 ML UDC TUBE SCH ×2 (08:59→21:58)
[2016-01-12] MEDS: LACTOBACILLUS ACIDOPHILUS 1 GM PACKET TUBE SCH ×2 (08:59→21:00)
[2016-01-12] MEDS: NYSTATIN 100,000 U/GM PWD 15 GM BTL TOPICAL SCH ×2 (09:00→21:00)
[2016-01-12] MEDS: RESP: IPRATROPIUM 0.5 MG/2.5 ML NEB NEB SCH ×3 (09:08→19:37)
--- NOTE | 2016-01-12 10:57 | HHI.HCPN ---
Reason for visit a. To assist with evaluation and management of symptoms including: encephalopathy, dyspnea, depression b. To assist medical decision maker(s) with: better understanding of current medical conditions; weighing benefits/burdens of medical treatment options; making medical treatment decisions. Subjective/Interval History Patient seen today to follow-up on goals, comfort. Afebrile. Tolerating T piece, 28% FiO2. Requiring suctioning of some celeste secretions. Slightly tachycardic at time 110s to 120s. Lovenox has been DC'd as patient transition to Coumadin, INR 2.4. Blood sugars fluctuating slightly elevated 190s-mid 200s. Tolerating tube feedings, having bowel movements. OT/ PT continue to see and assist with range of motion, patient not developing contractures. Patient seen in room with mother and brother at bedside. He is sleeping soundly eyes are closed, non responsive to my exam . Brother indicates he continues to have tearful episodes at times when family is talking to him. Brother verbalizes he is seen eyes move right, left and up and down. They share that patient seems to sleep through much of the morning but is much more alert and active between 2 PM and 6 PM. Brother is concerned regarding anticoagulation and and asks questions if the patient is still on anticoagulation--review with him transition from Lovenox to oral Coumadin. He has additional questions about patient's tearfulness, anti-depressant; explore with him situational depression, long-term chronic medical illnesses, and possibility of addition of low-dose SSRI for assistance with. He wants to ensure that narcotics are not added, review that would not be narcotic medication added. He expresses family would be open to adding adjunct for possible depression/anxiety. History brought forward from initial consult by Rita MOCTEZUMA on 01/10/16: This 59-year-old patient was admitted on 12/21/15 via the ED for facial drooping. ED physician notes that patient and patients are poor historians, EMS reported the could not provide good timelines to them. Patient also reported headache, difficulty ambulating. He had known history of recent findings of mass in the brain. During ED course had deterioration of clinical condition and able to protect his airway, unable to follow commands patient was intubated and CT brain obtained. He was admitted for further evaluation and management to the ICU. Adjuster And Inspector was consulted and following patient. Pathology on recent brain biopsy (12/13) still pending. CLINICAL/HOSPITAL COURSE: * CT brain= no focal or acute intracranial hemorrhage. New area decreased density in left occipital lobe suggestive of recent nonhemorrhagic infarct, decreased density in previously noted right occipital lobe has increased in size * Brain MRI = new area of restricted diffusion within left occipital lobe suggesting acute infarct. Interval enlargement of the area of restricted diffusion within right occipital lobe suggesting probable extension of right occipital and started on. Underlying enhancement of right occipital lobe is slightly worse than the previous exam and nonspecific. Biopsy has been performed and results are pending. Tiny focal area of restricted diffusion within right cerebellar hemisphere consistent with probable acute/subacute lacunar infarct. Signal abnormality in the SWI sequence within the right occipital lobe suggesting some hemorrhage in biopsy bed. No midline shift or extra-axial fluid collections. * CXR= no acute cardiopulmonary disease * -Neurology consulted, ordered MRA to look for vertebrobasilar stenosis, echo done last admission notes normal EF with normal valves and normal left atrial size. EEG also ordered. MR venogram ordered. EEG= abnormal study consistent with her encephalopathy. MRV indicated basilar occlusion; neurology notes discussion with family regarding chemical code only, also notes discussion regarding risks associated with the anticoagulates, was discussed with radiologist/INR recommended not helpful to extract basilar clot as this could result in patient's . It was felt the colin was infarcted. Further neurology notes "he could be locked in", is acting as if colin is infarcted. * Oncology known to patient also consulted for non-Hodgkin's lymphoma: Dr Whyte documents that there was no evidence of residual or recurrent disease on CT scans of chest, abdomen, pelvis done in October and November of this year. Pathology was still pending, had been sent to [facility] for second opinion. No acute oncology interventions recommended at that time, will follow. * 6/5 - 6/7 febrile. CPAP trials. Remains on vent off of sedation. Withdrawing to pain. Repeat brain MRI= evolving brainstem stroke. Neurology notes extensive discussion with family, notes discussion the patient is locked in but fully aware, family would like to see help patient does over the next 3 months. 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 Biopsy brain lesion appears consistent with acute infarct no lymphoma. Family desires ongoing aggressive measures, will proceed with tracheostomy. Sputum culture positive sensitive Klebsiella. * 01/01 tracheostomy, PEG tube placement * 01/04 trach collar trials, alternating with T piece. Low-grade fever 100.5. CXR = mild bibasilar atelectasis. Neuro: Spontaneously opening eyes, looking up / down, directionally to commands. * 01/07 still "locked in " , transferred off ICU to regular floor. * 01/08 pulmonology consulted-not CXR clear no evidence of pulmonary infection. He may have some underlying COPD recommends continued aerosol treatments. Further notes long discussion with family at bedside regarding tracheostomy, long-term use of trach until patient able to protect his airway, no further recommendations. Palliative care consulted to assist with clarification of goals of treatment. Advance Directives Living Will: Never completed Health Care Surrogate: Never completed Objective Vital Signs Date Time Temp Pulse Resp B/P Pulse Ox O2 Delivery O2 Flow Rate FiO2 01/12/16 09:12 93 T-piece 6.00 28 01/12/16 04:00 98.1 88 18 134/88 97 01/12/16 00:00 96.5 116 24 137/93 97 01/11/16 20:00 97.4 109 22 123/92 97 01/11/16 19:49 95 T-piece 6.00 28 01/11/16 16:00 96.7 96 20 126/79 96 01/11/16 12:00 96.6 97 18 127/79 99 Intake & Output 01/12/16 01/12/16 07:00 19:00 Output Total 450 ml 400 ml Balance -450 ml -400 ml Output Urine Total 450 ml 400 ml # Bowel Movements 0 0 Physical Exam CONSTITUTIONAL/GENERAL: This is an adequately nourished patient, sleeping, no apparent distress TUBES/LINES/DRAINS: PIV upper extremity, Arevalo catheter, PEG tube, tracheostomy , SCDs CARDIOVASCULAR: Regular rate and rhythm without murmurs. Slightly tachycardic. Peripheral pulses symmetric. RESPIRATORY/CHEST: Symmetric, unlabored respirations.faint rhonchi to right, otherwise clear. Breath sounds equal bilaterally. GASTROINTESTINAL: Abdomen soft, non-tender, nondistended. Bowel sounds normoactive.+PEG mid abd w TF infusing GENITOURINARY: Without palpable bladder distension. Arevalo catheter in place. MUSCULOSKELETAL: Extremities without clubbing, cyanosis, or edema. No joint effusion noted. No mottling or clubbing. No contractures evident. NEUROLOGICAL: sleeping soundly does not arouse for my exam/visit. PSYCHIATRIC: Difficult to assess due to clinical condition. no apparent hallucinations or other psychotic thought process. Diagnostic Tests Laboratory Laboratory Tests Test 01/10/16 01/11/16 01/12/16 07:17 07:05 07:33 White Blood Count 6.6 TH/MM3 (4.0-11.0) Red Blood Count 3.93 MIL/MM3 (4.50-5.90) Hemoglobin 10.5 GM/DL (13.0-17.0) Hematocrit 32.6 % (39.0-51.0) Mean Corpuscular Volume 83.0 FL (80.0-100.0) Mean Corpuscular Hemoglobin 26.7 PG (27.0-34.0) Mean Corpuscular Hemoglobin 32.2 % Concent (32.0-36.0) Red Cell Distribution Width 14.7 % (11.6-17.2) Platelet Count 292 TH/MM3 (150-450) Mean Platelet Volume 9.0 FL (7.0-11.0) Prothrombin Time 18.3 SEC 20.8 SEC 26.1 SEC (9.8-11.4) (9.8-11.4) (9.8-11.4) Prothromb Time International 1.7 RATIO 1.9 RATIO 2.4 RATIO Ratio Sodium Level 136 MEQ/L (136-145) Potassium Level 3.8 MEQ/L (3.5-5.1) Chloride Level 98 MEQ/L (98-107) Carbon Dioxide Level 27.8 MEQ/L (21.0-32.0) Anion Gap 10 MEQ/L (5-15) Blood Urea Nitrogen 22 MG/DL (7-18) Creatinine 0.63 MG/DL (0.60-1.30) Estimat Glomerular Filtration 130 ML/MIN Rate (>89) Random Glucose 159 MG/DL (74-106) Calcium Level 9.4 MG/DL (8.5-10.1) Result Diagram: 01/10/16 0717 01/10/16 0717 Imaging Last Impressions Chest X-Ray 01/05/16 0600 Signed Impressions: Service Date/Time: Tuesday, January 05, 2016 05:00 - CONCLUSION: Mild bibasilar atelectasis. No significant change. 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 No evidence of carotid stenosis. Glen Zamora MD Head Magnetic Resonance Angiography 12/22/15 1445 Signed Impressions: Service Date/Time: Tuesday, December 22, 2015 09:22 - CONCLUSION: 1. 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 2. Anterior circulation remains patent without aneurysmal disease. Bobby Gray MD Head/Brain Mag Res Venography 12/22/15 0000 Signed Impressions: Service Date/Time: Tuesday, December 22, 2015 09:22 - CONCLUSION: Normal MRV. Jonel Jones Jr., MD Head CT 12/21/15 0546 Signed Impressions: Service Date/Time: December 06:01 - CONCLUSION: 1. No focal or acute intracranial hemorrhage. 2. There is a new area of decreased density in the left occipital lobe suggestive of a recent nonhemorrhagic infarction. 3. The decreased density in the previously noted right occipital lobe has increased in size. Michael Hamilton MD Procedures * 01/01 tracheostomy, PEG tube placement . 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; EEG indicates encephalopathy, neuro following patient felt to be in a "locked-in "state (2) Non-Hodgkin lymphoma Comment: -In remission status post chemotherapy completed May 2015 (3) Acute respiratory failure Comment: Pulmonology following, medical management (4) A-fib (5) Status post stereotactic brain biopsy (6) Brain lesion Comment: Status post biopsy November 2015; pathology consistent with acute infarct without evidence of lymphoma (7) DM (diabetes mellitus) Symptom Scale: (1) Dysphagia Comment: Status post significant CVA, has had PEG tube placed (2) Dyspnea Comment: Respiratory failure secondary to CVA, status post tracheostomy, pulmonary following (3) Encephalopathy Comment: Significant CVA, "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 Albumin 2.4. (5) Depression Comment: At risk for related to "locked in status", communication difficulties , situational, but would likely benefit from anti-depressant Pertinent Non-Medical Issues * Psychosocial:Mr. Flores is originally from [place]. He moved to the around 35 years ago, first to [place] and later to [place]. He is not legally but remains with his ex-, Leanne. They have been together for 31+ years and have three children together: Leanne, Gerald, and Ginny. Gerald is currently in [facility] for work. Mr. Flores has 2 brothers and 7 sisters. His father is of old age. His mother is alive and was living with the patient. Greatly enjoys his family. Retired. 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 * Spiritual: * Legal:Patient due to clinical condition is currently unable to participate in medical decision making. Not clear if or when he will regain this ability. Family does not believe he has completed advance directives. per [place] Statutes, medical proxy decision making would fall to the majority of adult children, as Mr. Flores is not legally . * Ethical issues impacting care: Important Contacts Leanne, daughter: [phone] Ginny, daughter: [phone] Gerald, son: currently in [facility] for work but has communication with his siblings. Leanne, ex-: [phone] Prognosis This patient has had 20 day hospital course thus far, admitted on 62 for a large brainstem infarct, bilateral occipital infarcts. He has subsequently had ongoing encephalopathy and severe communication limitations, neurology feels he is in a "locked-in "state. He has suffered from respiratory failure likely secondary to significant CVA. Appears he should be able to survive this acute hospitalization, however not clear when or if he will regain ability to communicate, based on current assessments patient will require long-term care placement. He will remain high risk for potential competition/setbacks due to immobile status including infections, DVT etc. . Code Status: Full Code Plan * GOALS: Very aggressive. See family conference 01/09 component for additional detail. Meeting In summary: Initially they had many questions regarding admission and biopsy which occurred in November, they ask about differentials and decision making leading to the biopsy, and have many concerns regarding that clinical course--advised that I could not speak to any of those questions or processes as I was not involved in his care and decision making at that time, recommend them to direct those specific questions to those initial providers which provided those services. Otherwise review of conditions, goals as detailed in "issues discussed". Family expresses that Mr. Flores did remarkably well following his chemotherapy for lymphoma just last year, and that he had been doing fine until recent issue in November. They endorsed that he is a fighter, that he is a very optimistic person, and that they are certain he is "in there "and would want to continue fighting for whatever recovery he might have." They have many questions regarding rehabilitation services and placement as well as financial coverage for these services, advised that case management could assist them with the various applications which already in process, but that any placement would depend on funding, or alternatively coleman placement which is up to any individual institution. They would like to maximize PT/OT/ST ongoing while here in the hospital. * They also request courtesy consult of to follow him for pulmonary as he is known to the family through their yazidi. 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 Albumin 2.4.; tolerating TF == depression/ anxiety-- At risk for related to "locked in status", communication difficulties, situational, but would likely benefit from anti- depressant. Family reports tearful at times when they talk to him. Consider SSRI / Celexa 20mg QD, titrate up if needed. Family open to this. * Palliative care will continue to follow during hospital course as condition evolves, to assist patient/decision-maker with understanding of medical conditions, weighing benefits/burdens of treatment options, for clarification of goals of treatment. Additionally will assist with any symptoms of palliative concern . Time Spent Total Floor Time (mins): 30 Attestation To help prompt me to consider important information that might be impacting today's encounter and assessment, information from prior notes written by myself or my colleagues may have been "brought forward" into today's note. My signature on this note, however, is an attestation that I personally performed the exam, history, and/or decision-making noted today, and, unless otherwise indicated, the interactions with patient, family, and staff as well as the review of records all occurred today. I also attest that the listed assessment and stated plan reflect my best clinical judgment today based on the combination of historical information, prior notes, and today's exam/ interactions. When time spent is documented, it refers only to time spent today by the signer, or if indicated, combined time spent today by collaborating physician/nurse practitioner. Tiara Colin Jan 12, 2016 10:57
--- NOTE | 2016-01-12 11:47 | HHI.PR ---
Subjective Remarks Patient seen and evaluated today in follow-up for metabolic encephalopathy secondary to stroke. Plan discussed with Dr. Brandon pulmonology today. No events overnight. Family reports patient is more active between the hours of 2 PM and 6 PM. Respiratory status, vital signs otherwise stable. Patient still with some hyperglycemia Objective Vitals Vital Signs Date Time Temp Pulse Resp B/P Pulse Ox O2 Delivery O2 Flow Rate FiO2 01/12/16 09:12 93 T-piece 6.00 28 01/12/16 04:00 98.1 88 18 134/88 97 01/12/16 00:00 96.5 116 24 137/93 97 01/11/16 20:00 97.4 109 22 123/92 97 01/11/16 19:49 95 T-piece 6.00 28 01/11/16 16:00 96.7 96 20 126/79 96 01/11/16 12:00 96.6 97 18 127/79 99 I/O 01/11/16 01/11/16 01/11/16 01/12/16 01/12/16 01/12/16 07:00 15:00 23:00 07:00 15:00 23:00 Intake Total 1050 ml 0 ml 620 ml Output Total 350 ml 450 ml 450 ml 400 ml Balance 700 ml -450 ml 170 ml -400 ml Intake Oral 0 ml Tube Feeding 1050 ml 620 ml Output Urine Total 350 ml 450 ml 450 ml 400 ml # Bowel Movements 0 0 0 0 Result Diagram: 01/10/1671601/10/16716 Objective Remarks GENERAL: This is a well-nourished, well-developed patient, in no apparent distress. CARDIOVASCULAR: Sinus tach without murmurs, gallops, or rubs. RESPIRATORY: Tracheostomy Clear to auscultation. Breath sounds equal bilaterally. No wheezes, rales, or rhonchi. GASTROINTESTINAL: PEG tube Abdomen soft, non-tender, nondistended. Normal active bowel sounds MUSCULOSKELETAL: Extremities without clubbing, cyanosis, or edema. NEURO: Encephalopathic, tongue fasciculations, no withdrawal my exam Procedures PEG and trach A/P Problem List: (1) CVA (cerebral vascular accident) Status: Acute Plan: Acute pontine and cerebellar infarct with basilar artery thrombosis Continue Keppra EEG does show severe encephalopathy with abnormal delta waves continue following clinically as patient may be in "a locked in" state neuro following Palliative consult appreciated, family meeting (2) Fever Status: Acute Plan: No further fever We'll continue to watch off of antibiotics cxr 01/04 unchanged UA 01/04 unremarkable. No leukocytosis (3) Acute respiratory failure Status: Acute Plan: Secondary to CVA, Status post tracheostomy. Continue bronchi dilators and pulmonary toilet Duonebs PRN Pulmonary consult appreciated (Dr. Brandon following) Dr. Cordoba will be back friday (4) A-fib Status: Acute Plan: Sinus tachycardia off Betapace Lopressor 3 times a day continue full anticoagulation with warfarin Echocardiogram completed in November shows preserved EF INR 2.4 (from 1.9) decrease coumadin (5) Non-Hodgkin lymphoma Status: Chronic Plan: s/p brain biopsy on December 13, by Neurosurgery, Dr. Marin - Pathology consistent with acute infarct without evidence of lymphoma Seen by Oncology, Dr. Whyte, who has signed off for current admission as no active oncology issues Continue anti-coagulation with Lovenox 1 mg/kg q12 as bridge to Coumadin with goal INR 2-3 (6) DM (diabetes mellitus) Status: Acute Plan: Random blood sugars are above 200. Patient with a hemoglobin A1c in November of above 7 May need to change to feedings, we'll discuss with the nutritional team Continue Levemir and sliding scale Cathy Lindo MD Jan 12, 2016 11:46
[2016-01-12] MEDS: WARFARIN SOD 2 MG TAB PO SCH (18:00)
[2016-01-12] MEDS: INSULIN DETEMIR 100 UNITS/ML VIAL SQ SCH (21:59)
[2016-01-13] VITALS (9 sets, daily range): BP systolic 130–144; BP diastolic 75–92; PULSE 110–140; RESP 16–22; TEMP 97.8–100.1; O2SAT 93–96
[2016-01-13] MEDS: INSULIN ASPART SUPPLEMENTAL SCALE SQ SCH ×4 (06:06→18:11)
[2016-01-13 07:53] LABS: PROTHROMBIN TIME - PATIENT 21.2 SEC (9.8-11.4)
[2016-01-13] MEDS: ACETAMINOPHEN/HYDROcodone 325 MG/5 MG TAB PO PRN ×2 (08:13→20:13)
[2016-01-13] MEDS: METOPROLOL TARTRATE 50 MG TAB GT SCH ×3 (08:13→17:05)
[2016-01-13] MEDS: RESP: IPRATROPIUM 0.5 MG/2.5 ML NEB NEB SCH ×4 (08:46→21:00)
--- NOTE | 2016-01-13 08:59 | HHI.PR ---
Subjective Remarks f/u; CVA in no acute distress.afebrile. d/w RN and no acute issues over night. Objective Vitals Vital Signs Date Time Temp Pulse Resp B/P Pulse Ox O2 Delivery O2 Flow Rate FiO2 01/13/16 06:10 98.4 121 20 134/92 95 01/13/16 01:14 99.0 113 20 144/84 95 01/12/16 21:06 97.8 94 20 151/86 99 01/12/16 19:37 98 T-piece 6.00 28 01/12/16 16:00 97.7 101 18 115/76 98 01/12/16 12:00 97.9 97 18 139/80 97 01/12/16 09:12 93 T-piece 6.00 28 I/O 01/12/16 01/12/16 01/12/16 01/13/16 01/13/16 01/13/16 07:00 15:00 23:00 07:00 15:00 23:00 Intake Total 1440 ml Output Total 1000 ml 1175 ml Balance -1000 ml 1440 ml -1175 ml Tube Feeding 1440 ml Output Urine Total 1000 ml 1175 ml # Bowel Movements 0 Result Diagram: 01/10/16 0717 01/10/16 0717 Imaging Last Impressions Chest X-Ray 01/05/16 0600 Signed Impressions: Service Date/Time: Tuesday, January 05, 2016 05:00 - CONCLUSION: Mild bibasilar atelectasis. No significant change. 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 No evidence of carotid stenosis. Glen Zamora MD Head Magnetic Resonance Angiography 12/22/15 1445 Signed Impressions: Service Date/Time: Tuesday, December 22, 2015 09:22 - CONCLUSION: 1. 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 2. Anterior circulation remains patent without aneurysmal disease. Bobby Gray MD Head/Brain Mag Res Venography 12/22/15 0000 Signed Impressions: Service Date/Time: Tuesday, December 22, 2015 09:22 - CONCLUSION: Normal MRV. Jonel Jones Jr., MD Head CT 12/21/15 0546 Signed Impressions: Service Date/Time: December 06:01 - CONCLUSION: 1. No focal or acute intracranial hemorrhage. 2. There is a new area of decreased density in the left occipital lobe suggestive of a recent nonhemorrhagic infarction. 3. The decreased density in the previously noted right occipital lobe has increased in size. Michael Hamilton MD Objective Remarks GENERAL: on Trach- in no apparent distress. CARDIOVASCULAR: Regular rate and regular rhythm without murmurs, gallops, or rubs. RESPIRATORY: Clear to auscultation. Breath sounds equal bilaterally. No wheezes , rales, or rhonchi. GASTROINTESTINAL: Abdomen soft, non-tender, nondistended. Normal, active bowel sounds-PEG in place MUSCULOSKELETAL: Extremities without clubbing, cyanosis, or edema. NEURO: awake Procedures PEG and trach Medications and IVs Current Medications IV Flush (NS Flush) 2 ml UNSCH PRN IVF FLUSH AFTER USING IV ACCESS Last administered on 01/10/16at 08:08; Start 12/21/15 at 06:00 Ondansetron HCl (Zofran Inj) 4 mg STK-MED ONCE .ROUTE ; Start 12/21/15 at 06:22; Stop 12/21/15 at 06:23; Status DC Ondansetron HCl (Zofran Inj) 4 mg ONCE ONCE IV PUSH Last administered on at 06:43; Start 12/21/15 at 06:30; Stop 12/21/15 at 06:31; Status DC Diltiazem HCl 20 mg 20 mg ONCE ONCE IV Last administered on 12/21/15at 06:42; Start 12/21/15 at 06:30; Stop 12/21/15 at 06:31; Status DC Diltiazem HCl/ Sodium Chloride (Cardizem Inj/NS Inj) 125 ml @ 0 mls/hr TITRATE IV Last administered on 12/21/15at 06:47; Start 12/21/15 at 06:30; Stop 12/21/15 at 13:00; Status DC Acetaminophen (Tylenol) 650 mg ONCE ONCE PO ; Start 12/21/15 at 06:45; Stop 12/20 at 06:46; Status DC Lorazepam (Ativan Inj) 1 mg ONCE ONCE IV PUSH Last administered on 12/21/15at 07 :22; Start 12/21/15 at 07:15; Stop 12/21/15 at 07:16; Status DC Etomidate (Amidate Inj) 40 mg STK-MED ONCE .ROUTE Last administered on at 08:17; Start 12/21/15 at 07:37; Stop 12/21/15 at 07:38; Status DC Succinylcholine Chloride 200 mg 200 mg STK-MED ONCE .ROUTE Last administered on 12/21/15at 08:18; Start 12/21/15 at 07:37; Stop 12/21/15 at 07:38; Status DC Propofol (Diprivan 1000 Mg/100ml Inj) 100 ml @ As Directed STK-MED ONCE .ROUTE Last administered on 12/21/15at 08:19; Start 12/21/15 at 07:46; Stop 12/21/15 at 07:47; Status DC Propofol (Diprivan 1000 Mg/100ml Inj) search Sets for Drip. NOW PRN IV SEDATION Last administered on 12/22/15at 06:25; Start 12/21/15 at 08:30; Stop 12/28 at 15:43; Status DC Gadodiamide (Omniscan Pf Inj) 18 ml STK-MED ONCE IV Last administered on at 10:11; Start 12/21/15 at 10:11; Stop 12/21/15 at 10:12; Status DC Pantoprazole Sodium (Protonix Inj) 40 mg DAILY IV Last administered on at 07:39; Start 12/21/15 at 13:00; Stop 01/03/16 at 10:10; Status DC Albuterol/ Ipratropium (Duoneb Neb) 1 ampule Q6HR NEB INH Last administered on 12/25/15at 07:51; Start 12/21/15 at 13:00; Stop 12/25/15 at 13:00; Status DC Miscellaneous Information 1 [id number] Last administered on 12/21/15at 13:00; Start 12/21/15 at 13:00; Stop 01/12/16 at 11:47; Status DC Chlorhexidine Gluconate (Chlorhexidine 2% Cloth) 3 pack Taper DAILY@04 TOP Last administered on 01/11/16at 04:10; Start 12/22/15 at 04:00; Stop 01/12/16 at 11:47; Status DC Chlorhexidine Gluconate 3 pack 3 pack UNSCH PRN TOP HYGIENIC CARE; Start at 13:00; Stop 01/12/16 at 11:47; Status DC Sodium Chloride (NS 1000 ml Inj) 1,000 ml @ 75 mls/hr [id number] IV Last administered on 12/22/15at 17:00; Start 12/21/15 at 13:00; Stop 12/22/15 at 19:01; Status DC Dextrose (D50w (Vial) Inj) 25 ml UNSCH PRN IV PUSH HYPOGLYCEMIA-SEE COMMENTS; Start 12/21/15 at 13:00 Glucagon (Glucagon Inj) 1 mg UNSCH PRN OTHER HYPOGLYCEMIA-SEE COMMENTS; Start 12/21/15 at 13:00 Insulin Human Regular (NovoLIN R SUPPLEMENTAL SCALE) 1 Q6H SQ Last administered on 01/04/16at 06:31; Start 12/21/15 at 13:00; Stop 01/04/16 at 10:05 ; Status DC Levetriacetam (Keppra) 500 mg Q12HR PO Last administered on 12/27/15at 09:00; Start 12/21/15 at 13:45; Stop 12/27/15 at 09:44; Status DC Heparin Sodium (Porcine) (Heparin Inj) 5,000 units BID SQ Last administered on 12/22/15at 20:52; Start 12/21/15 at 21:00; Stop 12/23/15 at 08:32; Status DC Warfarin Sodium (Coumadin) 7.5 mg ONCE ONCE PO Last administered on 12/21/15at 21:43; Start 12/21/15 at 21:00; Stop 12/21/15 at 21:01; Status DC Warfarin Sodium (Coumadin) 5 mg DAILY@16 PO Last administered on 12/23/15at 16:00 ; Start 12/22/15 at 16:00; Stop 12/26/15 at 09:29; Status DC Patient Medication Teaching (Coumadin Booklet) 1 ONCE ONCE XX Last administered on 12/21/15at 20:15; Start 12/21/15 at 20:15; Stop 12/21/15 at 20:16; Status DC Chlorhexidine Gluconate (Peridex 0.12% Liq) 15 ml BID@08,20 MT Last administered on 01/12/16at 08:00; Start 12/22/15 at 20:00; Stop 01/12/16 at 11:47 ; Status DC Gadodiamide 20 ml 20 ml STK-MED ONCE IV Last administered on 12/22/15at 09:55; Start 12/22/15 at 09:55; Stop 12/22/15 at 09:56; Status DC Pharmacy Profile Note ml @ 0 mls/hr UNSCH OTHER ; Start 12/22/15 at 11:00; Stop 12/22/15 at 19:43; Status DC Sodium Chloride 1,000 ml @ 50 mls/hr Q20H IV Last administered on 12/24/15at 20: 02; Start 12/22/15 at 18:44; Stop 12/25/15 at 11:52; Status DC Pharmacy Profile Note (Coumadin Consult Pharmacy) 0 ml @ 0 mls/hr UNSCH OTHER ; Start 12/22/15 at 19:45; Stop 01/04/16 at 12:25; Status DC Acetaminophen 650 mg 650 mg Q6H PRN PO TEMP > 100 Last administered on at 13:24; Start 12/23/15 at 02:45; Stop 12/30/15 at 15:04; Status DC Potassium Chloride 100 ml @ 50 mls/hr Q2H PRN IV For Potassium 2.8 - 3.2 mEq/L ; Start 12/23/15 at 08:30; Stop 01/09/16 at 11:14; Status DC Potassium Chloride (KCl 20 Meq Premix Inj) 100 ml @ 50 mls/hr Q2H PRN IV For Potassium 2.8 - 3.2 mEq/L; Start 12/23/15 at 08:30; Stop 01/09/16 at 11:14; Status DC Potassium Chloride 40 meq 40 meq UNSCH PRN PO/TUBE For Potassium 3.3 - 3.5 mEq/ L; Start 12/23/15 at 08:30; Stop 01/09/16 at 11:14; Status DC Potassium Chloride 100 ml @ 25 mls/hr UNSCH PRN IV For Potassium 3.3 - 3.5 mEq /L; Start 12/23/15 at 08:30; Stop 01/09/16 at 11:14; Status DC Potassium Chloride 100 ml @ 50 mls/hr Q2H PRN IV For Potassium 3.3 - 3.5 mEq/L ; Start 12/23/15 at 08:30; Stop 01/09/16 at 11:14; Status DC Magnesium Sulfate/ Sodium Chloride (Magnesium Sulfate Inj/NS Inj) 100 ml @ 50 mls/hr UNSCH PRN IV For Magnesium 0.9 - 1.1 mg/dL; Start 12/23/15 at 08:30; Stop 01/09/16 at 11:14; Status DC Magnesium Oxide 800 mg 800 mg UNSCH PRN PO For Magnesium 1.2 - 1.6 mg/dL; Start 12/23/15 at 08:30; Stop 01/09/16 at 11:14; Status DC Magnesium Sulfate/ Sodium Chloride (Magnesium Sulfate Inj/NS Inj) 100 ml @ 50 mls/hr UNSCH PRN IV For Magnesium 1.2 - 1.6 mg/dL; Start 12/23/15 at 08:30; Stop 01/09/16 at 11:14; Status DC Potassium Phosphate 2000 mg 2,000 mg Q4H PRN PO For Phosphorus < 2.5 mg/dL; Start 12/23/15 at 08:30; Stop 01/09/16 at 11:14; Status DC Sodium Phosphate/ Sodium Chloride (Sodium Phosphate Inj/NS 250 ml Inj) 250 ml @ 42 mls/hr UNSCH PRN IV For Phosphorus < 2.5 mg/dL; Start 12/23/15 at 08:30; Stop 01/09/16 at 11:14; Status DC Potassium Chloride (KCl 40 Meq/30 ml Liq) 40 meq UNSCH PRN PO/TUBE SEE LABEL COMMENTS; Start 12/23/15 at 08:30; Stop 01/09/16 at 11:14; Status DC Potassium Phosphate 2000 mg 2,000 mg UNSCH PRN PO/TUBE SEE LABEL COMMENTS; Start 12/23/15 at 08:30; Stop 01/09/16 at 11:14; Status DC Potassium Phosphate 30 mmol/ Sodium Chloride 260 ml @ 42 mls/hr UNSCH PRN IV SEE LABEL COMMENTS; Start 12/23/15 at 08:30; Stop 01/09/16 at 11:14; Status DC Sodium Chloride 1,000 ml @ 75 mls/hr [id number] IV ; Start 12/23/15 at 08:30; Stop 12/23/15 at 08:30; Status DC Piperacillin Sod/ Tazobactam Sod 50 ml @ 100 mls/hr Q6H IV Last administered on 12/30/15at 10:02; Start 12/23/15 at 10:00; Stop 12/30/15 at 14:50; Status DC Vancomycin HCl/ Sodium Chloride (Vancomycin Inj/ NS 250 ml Inj) 250 ml @ 250 mls/hr Q12H IV Last administered on 12/29/15at 09:01; Start 12/24/15 at 08:45; Stop 12/29/15 at 15:33; Status DC Warfarin Sodium (Coumadin) 4 mg DAILY@16 PO Last administered on 12/28/15at 16:00 ; Start 12/26/15 at 16:00; Stop 01/04/16 at 12:25; Status DC Levetriacetam (Keppra Liq) 500 mg Q12HR TUBE Last administered on 01/12/16at 21 :58; Start 12/27/15 at 21:00 Docusate Sodium (Colace Liq) 100 mg Q12HR TUBE Last administered on 01/12/16at 21:58; Start 12/27/15 at 21:00 Sennosides (Senna Liq) 8.8 mg DAILY TUBE Last administered on 01/12/16at 08:59 ; Start 12/27/15 at 17:00 Bisacodyl (Dulcolax Supp) 10 mg ONCE ONCE RECTAL ; Start 12/27/15 at 16:15; Stop 12/27/15 at 16:15; Status DC Albuterol/ Ipratropium (Duoneb Neb) 1 ampule Q4HR NEB PRN NEB RESPIRATORY DISTRESS Last administered on 12/29/15at 12:17; Start 12/27/15 at 22:00; Stop 6/ 19/16 at 08:16; Status DC Bisacodyl (Dulcolax Supp) 10 mg ONCE ONCE RECTAL ; Start 12/28/15 at 12:00; Stop 12/28/15 at 12:01; Status DC Sodium Chloride (Sodium Chloride) 1 gm BID TUBE Last administered on 12/29/15at 09:02; Start 12/28/15 at 21:00; Stop 12/29/15 at 15:43; Status DC Lactulose (Lactulose Liq) 30 ml DAILY TUBE Last administered on 12/29/15at 09:02 ; Start 12/28/15 at 20:30; Stop 12/29/15 at 15:43; Status DC Levofloxacin (Levaquin) 750 mg DAILY@16 TUBE ; Start 12/29/15 at 16:00; Stop 05/05 at 16:00; Status DC Sodium Chloride (Sodium Chloride) 1 gm DAILY TUBE Last administered on at 07:29; Start 12/30/15 at 09:00; Stop 12/31/15 at 14:08; Status DC Water 200 ml 200 ml Q6HR G-TUBE Last administered on 12/31/15at 04:19; Start 06/05 at 14:45; Stop 12/31/15 at 07:31; Status DC Ceftriaxone Sodium/Sodium Chloride (Rocephin Inj/NS Inj) 100 ml @ 200 mls/hr Q12H IV Last administered on 01/03/16at 02:47; Start 12/30/15 at 15:00; Stop at 10:09; Status DC Acetaminophen (Tylenol 650 Mg/ 20 ml Liq) 650 mg Q6H PRN TUBE TEMP >100.4 Last administered on 01/08/16at 08:32; Start 12/30/15 at 15:15 Lactobacillus Acidophilus (Lactinex Pkt) 1 gm BID TUBE Last administered on at 21:00; Start 12/30/15 at 21:00 Enoxaparin Sodium (Lovenox Inj) 90 mg Q12H SQ Last administered on 01/01/16at 21 :57; Start 12/31/15 at 08:00; Stop 01/03/16 at 10:33; Status DC Water (Free Water) 100 ml Q12H G-TUBE ; Start 12/31/15 at 18:00; Stop 12/31/15 at 18:00; Status DC Acetaminophen/ Hydrocodone Bitart ([place] 5-325 Mg) 1 tab Q6H PRN PO PAIN Last administered on 01/13/16at 08:13; Start 12/31/15 at 15:00 Fentanyl Citrate (Sublimaze Inj) 25 mcg Q1H PRN IV PUSH BREAKTHROUGH PAIN; Start 12/31/15 at 15:00 Water (Free Water) 200 ml Q8H G-TUBE Last administered on 01/01/16at 17:55; Start 12/31/15 at 18:00; Stop 01/02/16 at 09:56; Status DC Sodium Chloride (Sodium Chloride) 1 gm BID TUBE Last administered on 01/03/16at 07:39; Start 12/31/15 at 21:00; Stop 01/03/16 at 09:08; Status DC Miscellaneous Information Hold Anticoagulation after midni... ONCE ONCE OTHER ; Start 01/01/16 at 10:15; Stop 01/01/16 at 10:29; Status DC Sodium Chloride (NS 1000 ml Inj) 1,000 ml @ 50 mls/hr Q20H IV Last administered on 01/02/16at 12:26; Start 01/01/16 at 18:00; Stop 01/03/16 at 10:07 ; Status DC Midazolam HCl (Versed Inj) 5 mg STK-MED ONCE .ROUTE ; Start 01/02/16 at 12:47; Stop 01/02/16 at 12:48; Status DC Vecuronium [place] (Norcuron 10 Mg Inj) 10 mg STK-MED ONCE .ROUTE ; Start at 12:47; Stop 01/02/16 at 12:48; Status DC Fentanyl Citrate (Sublimaze Inj) 250 mcg ONCE ONCE IV PUSH Last administered on 01/02/16at 15:00; Start 01/02/16 at 15:00; Stop 01/02/16 at 15:01; Status DC Midazolam HCl (Versed Inj) 10 mg ONCE ONCE IV PUSH Last administered on at 15:00; Start 01/02/16 at 15:00; Stop 01/02/16 at 15:01; Status DC Rocuronium [place] (Zemuron Inj) 100 mg BOLUS ONCE IV Last administered on at 15:00; Start 01/02/16 at 15:00; Stop 01/02/16 at 15:01; Status DC Ketamine HCl (Ketalar Inj) 500 mg STK-MED ONCE .ROUTE ; Start 01/02/16 at 14:30 ; Stop 01/02/16 at 14:31; Status DC Propofol 230 mg 230 mg STK-MED ONCE IV ; Start 01/02/16 at 16:51; Stop 01/02/16 at 16:52; Status DC Sodium Chloride (NS 1000 ml Inj) 1,000 ml @ 0 mls/hr Q0M IV ; Start 01/03/16 at 10:15 Ranitidine HCl (Zantac Liq) 150 mg Q12HR PO Last administered on 01/12/16at 21: 58; Start 01/04/16 at 09:00 Enoxaparin Sodium 90 mg 90 mg Q12HR SQ Last administered on 01/11/16at 10:01; Start 01/04/16 at 09:00; Stop 01/11/16 at 12:35; Status DC Sodium Chloride (NS 500 ml Inj) 500 ml @ 0 mls/hr BOLUS ONCE IV Last administered on 01/03/16at 22:57; Start 01/03/16 at 23:00; Stop 01/03/16 at 23:01 ; Status DC Insulin Aspart (NovoLOG SUPPLEMENTAL SCALE) 1 Q6HR SQ Last administered on 01/12at 06:06; Start 01/04/16 at 12:00 Potassium Chloride (KCl 40 Meq/30 ml Liq) 40 meq Q4H NG Last administered on at 16:21; Start 01/04/16 at 13:00; Stop 01/04/16 at 17:01; Status DC Warfarin Sodium 5 mg 5 mg DAILY@1600 PO Last administered on 01/09/16at 17:21; Start 01/04/16 at 16:00; Stop 01/10/16 at 10:06; Status DC Pharmacy Profile Note (Coumadin Consult Pharmacy) 0 ml @ 0 mls/hr UNSCH XX ; Start 01/04/16 at 12:30 Insulin Detemir (Levemir Inj) 10 units Q12HR SQ Last administered on 01/05/16at 08:00; Start 01/04/16 at 21:00; Stop 01/05/16 at 08:42; Status DC Insulin Detemir (Levemir Inj) 5 units NOW ONCE SQ Last administered on at 13:28; Start 01/04/16 at 12:45; Stop 01/04/16 at 12:46; Status DC Albuterol/ Ipratropium (Duoneb Neb) 1 ampule Q4HR NEB PRN NEB dyspnea Last administered on 01/10/16at 08:51; Start 01/07/16 at 08:15 Warfarin Sodium (Coumadin) 7.5 mg ONCE ONCE PO Last administered on 01/07/16at 16:40; Start 01/07/16 at 16:00; Stop 01/07/16 at 16:01; Status DC Nystatin (Mycostatin Powder) 1 applic Q12HR TOPICAL Last administered on at 21:00; Start 01/08/16 at 21:00 Ipratropium [place] (Atrovent Neb) 0.5 mg TID NEB NEB Last administered on at 19:37; Start 01/08/16 at 20:00 Warfarin Sodium (Coumadin) 5 mg DAILY@1600 PO Last administered on 01/11/16at 14 :26; Start 01/11/16 at 16:00; Stop 01/12/16 at 09:45; Status DC Warfarin Sodium (Coumadin) 6 mg ONCE PO Last administered on 01/10/16at 17:10; Start 01/10/16 at 16:00; Stop 01/10/16 at 21:00; Status DC Metoprolol Tartrate (Lopressor) 50 mg Q12HR GT Last administered on 01/11/16at 10:02; Start 01/10/16 at 11:00; Stop 01/11/16 at 12:30; Status DC Metoprolol Tartrate (Lopressor) 50 mg TID GT Last administered on 01/13/16at 08: 13; Start 01/11/16 at 13:00 Insulin Detemir (Levemir Inj) 10 units HS SQ Last administered on 01/11/16at 22: 23; Start 01/11/16 at 21:00; Stop 01/12/16 at 11:47; Status DC Warfarin Sodium (Coumadin) 4 mg DAILY@16 PO ; Start 01/12/16 at 16:00; Stop at 16:00; Status DC Insulin Detemir (Levemir Inj) 20 units HS SQ Last administered on 01/12/16at 21: 59; Start 01/12/16 at 21:00 Warfarin Sodium (Coumadin) 2 mg DAILY@16 PO Last administered on 01/12/16at 18: 00; Start 01/12/16 at 16:00 A/P Assessment and Plan A/P (1) CVA (cerebral vascular accident) Status: Acute Plan: 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 Continue bronchi dilators and pulmonary toilet Duonebs PRN Pulmonary consult appreciated (Dr. Brandon following) (3) A-fib Status: Acute Plan: Sinus tachycardia off Betapace Lopressor 3 times a day continue full anticoagulation with warfarin Echocardiogram completed in November shows preserved EF pharmacy consulted for coumadin dosing. (4) Non-Hodgkin lymphoma Status: Chronic Plan: s/p brain biopsy on December 13, by Neurosurgery, Dr. Marin - Pathology consistent with acute infarct without evidence of lymphoma Seen by Oncology, Dr. Whyte, who has signed off for current admission as no active oncology issues (5) DM (diabetes mellitus) Status: Acute Plan: Random blood sugars are above 200. Patient with a hemoglobin A1c in November of above 7 Continue Levemir and sliding scale DVT prophylaxis with coumadin. Discharge Planning dc planning to SNF-however with no funding- case management noted reviewed. Medardo Au MD Jan 13, 2016 08:59
[2016-01-13] MEDS: NYSTATIN 100,000 U/GM PWD 15 GM BTL TOPICAL SCH ×2 (09:00→20:15)
[2016-01-13] MEDS: SENNOSIDES SYRUP 8.8 MG/5 ML CUP TUBE SCH (09:00)
[2016-01-13] MEDS: RANITIDINE HCL SYRUP 150 MG/10 ML UDC PO SCH ×2 (09:00→20:12)
[2016-01-13] MEDS: levETIRAcetam 500 MG/5 ML UDC TUBE SCH ×2 (09:00→20:12)
[2016-01-13] MEDS: LACTOBACILLUS ACIDOPHILUS 1 GM PACKET TUBE SCH ×2 (09:00→20:20)
[2016-01-13] MEDS: DOCUSATE SODIUM 100 MG/10 ML UDC TUBE SCH ×2 (09:00→20:12)
[2016-01-13] MEDS: WARFARIN SOD 2 MG TAB PO SCH (17:05)
[2016-01-13] MEDS: INSULIN DETEMIR 100 UNITS/ML VIAL SQ SCH (20:26)
[2016-01-14] VITALS (11 sets, daily range): BP systolic 133–159; BP diastolic 82–97; PULSE 84–120; RESP 16–20; TEMP 97.5–100; O2SAT 93–98
[2016-01-14] MEDS: INSULIN ASPART SUPPLEMENTAL SCALE SQ SCH ×4 (00:12→17:21)
[2016-01-14] MEDS: ACETAMINOPHEN 650 MG/20.3 ML UDC TUBE PRN (00:12)
[2016-01-14 05:15] LABS: INTERNATIONAL NORMALIZED RATIO 1.6 RATIO; PROTHROMBIN TIME - PATIENT 17.5 SEC (9.8-11.4)
--- NOTE | 2016-01-14 08:22 | HHI.PR ---
Subjective Remarks patient is in no acute distress. abdomen is distended.noted that had a low grade fever last night. d/w RN and no other acute issues over night. Objective Vitals Vital Signs Date Time Temp Pulse Resp B/P Pulse Ox O2 Delivery O2 Flow Rate FiO2 01/14/16 08:06 115 01/14/16 05:12 98.8 112 18 135/94 95 01/14/16 01:55 98.1 01/14/16 00:26 100.0 114 20 142/91 97 01/13/16 21:00 99.7 117 16 142/85 96 01/13/16 21:00 93 T-piece 50 01/13/16 20:00 110 01/13/16 16:00 97.8 113 22 133/86 93 01/13/16 13:05 128 01/13/16 12:00 99.2 118 22 134/75 95 01/13/16 11:05 16 01/13/16 08:46 96 T-piece 28 I/O 01/13/16 01/13/16 01/13/16 01/14/16 01/14/16 01/14/16 07:00 15:00 23:00 07:00 15:00 23:00 Intake Total 0 ml Output Total 1175 ml Balance -1175 ml 0 ml Intake Oral 0 ml Output Urine Total 1175 ml # Voids 3 2 # Bowel Movements 0 1 Result Diagram: 01/10/16 0717 01/10/16 0717 Imaging Last Impressions Chest X-Ray 01/05/16 0600 Signed Impressions: Service Date/Time: Tuesday, January 05, 2016 05:00 - CONCLUSION: Mild bibasilar atelectasis. No significant change. 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 No evidence of carotid stenosis. Glen Zamora MD Head Magnetic Resonance Angiography 12/22/15 [id number] Signed Impressions: Service Date/Time: Tuesday, December 22, 2015 09:22 - CONCLUSION: 1. 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 2. Anterior circulation remains patent without aneurysmal disease. Bobby Gray MD Head/Brain Mag Res Venography 12/22/15 0000 Signed Impressions: Service Date/Time: Tuesday, December 22, 2015 09:22 - CONCLUSION: Normal MRV. Jonel Jones Jr., MD Head CT 12/21/15 0546 Signed Impressions: Service Date/Time: December 06:01 - CONCLUSION: 1. No focal or acute intracranial hemorrhage. 2. There is a new area of decreased density in the left occipital lobe suggestive of a recent nonhemorrhagic infarction. 3. The decreased density in the previously noted right occipital lobe has increased in size. Michael Hamilton MD Objective Remarks GENERAL: on Trach- in no apparent distress. CARDIOVASCULAR: Regular rate and regular rhythm without murmurs, gallops, or rubs. RESPIRATORY: Clear to auscultation. Breath sounds equal bilaterally. No wheezes , rales, or rhonchi. GASTROINTESTINAL: Abdomen soft, non-tender,distended. hypoactive bowel sounds-PEG in place MUSCULOSKELETAL: Extremities without clubbing, cyanosis, or edema. NEURO: awake Procedures PEG and trach Medications and IVs Current Medications IV Flush (NS Flush) 2 ml UNSCH PRN IVF FLUSH AFTER USING IV ACCESS Last administered on 01/10/16at 08:08; Start 12/21/15 at 06:00 Ondansetron HCl (Zofran Inj) 4 mg STK-MED ONCE .ROUTE ; Start 12/21/15 at 06:22; Stop 12/21/15 at 06:23; Status DC Ondansetron HCl (Zofran Inj) 4 mg ONCE ONCE IV PUSH Last administered on at 06:43; Start 12/21/15 at 06:30; Stop 12/21/15 at 06:31; Status DC Diltiazem HCl 20 mg 20 mg ONCE ONCE IV Last administered on 12/21/15at 06:42; Start 12/21/15 at 06:30; Stop 12/21/15 at 06:31; Status DC Diltiazem HCl/ Sodium Chloride (Cardizem Inj/NS Inj) 125 ml @ 0 mls/hr TITRATE IV Last administered on 12/21/15at 06:47; Start 12/21/15 at 06:30; Stop 12/21/15 at 13:00; Status DC Acetaminophen (Tylenol) 650 mg ONCE ONCE PO ; Start 12/21/15 at 06:45; Stop 12/20 at 06:46; Status DC Lorazepam (Ativan Inj) 1 mg ONCE ONCE IV PUSH Last administered on 12/21/15at 07 :22; Start 12/21/15 at 07:15; Stop 12/21/15 at 07:16; Status DC Etomidate (Amidate Inj) 40 mg STK-MED ONCE .ROUTE Last administered on at 08:17; Start 12/21/15 at 07:37; Stop 12/21/15 at 07:38; Status DC Succinylcholine Chloride 200 mg 200 mg STK-MED ONCE .ROUTE Last administered on 12/21/15at 08:18; Start 12/21/15 at 07:37; Stop 12/21/15 at 07:38; Status DC Propofol (Diprivan 1000 Mg/100ml Inj) 100 ml @ As Directed STK-MED ONCE .ROUTE Last administered on 12/21/15at 08:19; Start 12/21/15 at 07:46; Stop 12/21/15 at 07:47; Status DC Propofol (Diprivan 1000 Mg/100ml Inj) search Sets for Drip. NOW PRN IV SEDATION Last administered on 12/22/15at 06:25; Start 12/21/15 at 08:30; Stop 12/28 at 15:43; Status DC Gadodiamide (Omniscan Pf Inj) 18 ml STK-MED ONCE IV Last administered on at 10:11; Start 12/21/15 at 10:11; Stop 12/21/15 at 10:12; Status DC Pantoprazole Sodium (Protonix Inj) 40 mg DAILY IV Last administered on at 07:39; Start 12/21/15 at 13:00; Stop 01/03/16 at 10:10; Status DC Albuterol/ Ipratropium (Duoneb Neb) 1 ampule Q6HR NEB INH Last administered on 12/25/15at 07:51; Start 12/21/15 at 13:00; Stop 12/25/15 at 13:00; Status DC Miscellaneous Information 1 [id number] Last administered on 12/21/15at 13:00; Start 12/21/15 at 13:00; Stop 01/12/16 at 11:47; Status DC Chlorhexidine Gluconate (Chlorhexidine 2% Cloth) 3 pack Taper DAILY@04 TOP Last administered on 01/11/16at 04:10; Start 12/22/15 at 04:00; Stop 01/12/16 at 11:47; Status DC Chlorhexidine Gluconate 3 pack 3 pack UNSCH PRN TOP HYGIENIC CARE; Start at 13:00; Stop 01/12/16 at 11:47; Status DC Sodium Chloride (NS 1000 ml Inj) 1,000 ml @ 75 mls/hr [id number] IV Last administered on 12/22/15at 17:00; Start 12/21/15 at 13:00; Stop 12/22/15 at 19:01; Status DC Dextrose (D50w (Vial) Inj) 25 ml UNSCH PRN IV PUSH HYPOGLYCEMIA-SEE COMMENTS; Start 12/21/15 at 13:00 Glucagon (Glucagon Inj) 1 mg UNSCH PRN OTHER HYPOGLYCEMIA-SEE COMMENTS; Start 12/21/15 at 13:00 Insulin Human Regular (NovoLIN R SUPPLEMENTAL SCALE) 1 Q6H SQ Last administered on 01/04/16at 06:31; Start 12/21/15 at 13:00; Stop 01/04/16 at 10:05 ; Status DC Levetriacetam (Keppra) 500 mg Q12HR PO Last administered on 12/27/15at 09:00; Start 12/21/15 at 13:45; Stop 12/27/15 at 09:44; Status DC Heparin Sodium (Porcine) (Heparin Inj) 5,000 units BID SQ Last administered on 12/22/15at 20:52; Start 12/21/15 at 21:00; Stop 12/23/15 at 08:32; Status DC Warfarin Sodium (Coumadin) 7.5 mg ONCE ONCE PO Last administered on 12/21/15at 21:43; Start 12/21/15 at 21:00; Stop 12/21/15 at 21:01; Status DC Warfarin Sodium (Coumadin) 5 mg DAILY@16 PO Last administered on 12/23/15at 16:00 ; Start 12/22/15 at 16:00; Stop 12/26/15 at 09:29; Status DC Patient Medication Teaching (Coumadin Booklet) 1 ONCE ONCE XX Last administered on 12/21/15at 20:15; Start 12/21/15 at 20:15; Stop 12/21/15 at 20:16; Status DC Chlorhexidine Gluconate (Peridex 0.12% Liq) 15 ml BID@08,20 MT Last administered on 01/12/16at 08:00; Start 12/22/15 at 20:00; Stop 01/12/16 at 11:47 ; Status DC Gadodiamide 20 ml 20 ml STK-MED ONCE IV Last administered on 12/22/15at 09:55; Start 12/22/15 at 09:55; Stop 12/22/15 at 09:56; Status DC Pharmacy Profile Note ml @ 0 mls/hr UNSCH OTHER ; Start 12/22/15 at 11:00; Stop 12/22/15 at 19:43; Status DC Sodium Chloride 1,000 ml @ 50 mls/hr Q20H IV Last administered on 12/24/15at 20: 02; Start 12/22/15 at 18:44; Stop 12/25/15 at 11:52; Status DC Pharmacy Profile Note (Coumadin Consult Pharmacy) 0 ml @ 0 mls/hr UNSCH OTHER ; Start 12/22/15 at 19:45; Stop 01/04/16 at 12:25; Status DC Acetaminophen 650 mg 650 mg Q6H PRN PO TEMP > 100 Last administered on at 13:24; Start 12/23/15 at 02:45; Stop 12/30/15 at 15:04; Status DC Potassium Chloride 100 ml @ 50 mls/hr Q2H PRN IV For Potassium 2.8 - 3.2 mEq/L ; Start 12/23/15 at 08:30; Stop 01/09/16 at 11:14; Status DC Potassium Chloride (KCl 20 Meq Premix Inj) 100 ml @ 50 mls/hr Q2H PRN IV For Potassium 2.8 - 3.2 mEq/L; Start 12/23/15 at 08:30; Stop 01/09/16 at 11:14; Status DC Potassium Chloride 40 meq 40 meq UNSCH PRN PO/TUBE For Potassium 3.3 - 3.5 mEq/ L; Start 12/23/15 at 08:30; Stop 01/09/16 at 11:14; Status DC Potassium Chloride 100 ml @ 25 mls/hr UNSCH PRN IV For Potassium 3.3 - 3.5 mEq /L; Start 12/23/15 at 08:30; Stop 01/09/16 at 11:14; Status DC Potassium Chloride 100 ml @ 50 mls/hr Q2H PRN IV For Potassium 3.3 - 3.5 mEq/L ; Start 12/23/15 at 08:30; Stop 01/09/16 at 11:14; Status DC Magnesium Sulfate/ Sodium Chloride (Magnesium Sulfate Inj/NS Inj) 100 ml @ 50 mls/hr UNSCH PRN IV For Magnesium 0.9 - 1.1 mg/dL; Start 12/23/15 at 08:30; Stop 01/09/16 at 11:14; Status DC Magnesium Oxide 800 mg 800 mg UNSCH PRN PO For Magnesium 1.2 - 1.6 mg/dL; Start 12/23/15 at 08:30; Stop 01/09/16 at 11:14; Status DC Magnesium Sulfate/ Sodium Chloride (Magnesium Sulfate Inj/NS Inj) 100 ml @ 50 mls/hr UNSCH PRN IV For Magnesium 1.2 - 1.6 mg/dL; Start 12/23/15 at 08:30; Stop 01/09/16 at 11:14; Status DC Potassium Phosphate 2000 mg 2,000 mg Q4H PRN PO For Phosphorus < 2.5 mg/dL; Start 12/23/15 at 08:30; Stop 01/09/16 at 11:14; Status DC Sodium Phosphate/ Sodium Chloride (Sodium Phosphate Inj/NS 250 ml Inj) 250 ml @ 42 mls/hr UNSCH PRN IV For Phosphorus < 2.5 mg/dL; Start 12/23/15 at 08:30; Stop 01/09/16 at 11:14; Status DC Potassium Chloride (KCl 40 Meq/30 ml Liq) 40 meq UNSCH PRN PO/TUBE SEE LABEL COMMENTS; Start 12/23/15 at 08:30; Stop 01/09/16 at 11:14; Status DC Potassium Phosphate 2000 mg 2,000 mg UNSCH PRN PO/TUBE SEE LABEL COMMENTS; Start 12/23/15 at 08:30; Stop 01/09/16 at 11:14; Status DC Potassium Phosphate 30 mmol/ Sodium Chloride 260 ml @ 42 mls/hr UNSCH PRN IV SEE LABEL COMMENTS; Start 12/23/15 at 08:30; Stop 01/09/16 at 11:14; Status DC Sodium Chloride 1,000 ml @ 75 mls/hr [id number] IV ; Start 12/23/15 at 08:30; Stop 12/23/15 at 08:30; Status DC Piperacillin Sod/ Tazobactam Sod 50 ml @ 100 mls/hr Q6H IV Last administered on 12/30/15at 10:02; Start 12/23/15 at 10:00; Stop 12/30/15 at 14:50; Status DC Vancomycin HCl/ Sodium Chloride (Vancomycin Inj/ NS 250 ml Inj) 250 ml @ 250 mls/hr Q12H IV Last administered on 12/29/15at 09:01; Start 12/24/15 at 08:45; Stop 12/29/15 at 15:33; Status DC Warfarin Sodium (Coumadin) 4 mg DAILY@16 PO Last administered on 12/28/15at 16:00 ; Start 12/26/15 at 16:00; Stop 01/04/16 at 12:25; Status DC Levetriacetam (Keppra Liq) 500 mg Q12HR TUBE Last administered on 01/13/16at 20 :12; Start 12/27/15 at 21:00 Docusate Sodium (Colace Liq) 100 mg Q12HR TUBE Last administered on 01/13/16at 20:12; Start 12/27/15 at 21:00 Sennosides (Senna Liq) 8.8 mg DAILY TUBE Last administered on 01/13/16at 09:00 ; Start 12/27/15 at 17:00 Bisacodyl (Dulcolax Supp) 10 mg ONCE ONCE RECTAL ; Start 12/27/15 at 16:15; Stop 12/27/15 at 16:15; Status DC Albuterol/ Ipratropium (Duoneb Neb) 1 ampule Q4HR NEB PRN NEB RESPIRATORY DISTRESS Last administered on 12/29/15at 12:17; Start 12/27/15 at 22:00; Stop at 08:16; Status DC Bisacodyl (Dulcolax Supp) 10 mg ONCE ONCE RECTAL ; Start 12/28/15 at 12:00; Stop 12/28/15 at 12:01; Status DC Sodium Chloride (Sodium Chloride) 1 gm BID TUBE Last administered on 12/29/15at 09:02; Start 12/28/15 at 21:00; Stop 12/29/15 at 15:43; Status DC Lactulose (Lactulose Liq) 30 ml DAILY TUBE Last administered on 12/29/15at 09:02 ; Start 12/28/15 at 20:30; Stop 12/29/15 at 15:43; Status DC Levofloxacin (Levaquin) 750 mg DAILY@16 TUBE ; Start 12/29/15 at 16:00; Stop 05/05 at 16:00; Status DC Sodium Chloride (Sodium Chloride) 1 gm DAILY TUBE Last administered on at 07:29; Start 12/30/15 at 09:00; Stop 12/31/15 at 14:08; Status DC Water 200 ml 200 ml Q6HR G-TUBE Last administered on 12/31/15at 04:19; Start 06/05 at 14:45; Stop 12/31/15 at 07:31; Status DC Ceftriaxone Sodium/Sodium Chloride (Rocephin Inj/NS Inj) 100 ml @ 200 mls/hr Q12H IV Last administered on 01/03/16at 02:47; Start 12/30/15 at 15:00; Stop at 10:09; Status DC Acetaminophen (Tylenol 650 Mg/ 20 ml Liq) 650 mg Q6H PRN TUBE TEMP >100.4 Last administered on 01/14/16at 00:12; Start 12/30/15 at 15:15 Lactobacillus Acidophilus (Lactinex Pkt) 1 gm BID TUBE Last administered on at 20:20; Start 12/30/15 at 21:00 Enoxaparin Sodium (Lovenox Inj) 90 mg Q12H SQ Last administered on 01/01/16at 21 :57; Start 12/31/15 at 08:00; Stop 01/03/16 at 10:33; Status DC Water (Free Water) 100 ml Q12H G-TUBE ; Start 12/31/15 at 18:00; Stop 12/31/15 at 18:00; Status DC Acetaminophen/ Hydrocodone Bitart ([place] 5-325 Mg) 1 tab Q6H PRN PO PAIN Last administered on 01/13/16at 20:13; Start 12/31/15 at 15:00 Fentanyl Citrate (Sublimaze Inj) 25 mcg Q1H PRN IV PUSH BREAKTHROUGH PAIN; Start 12/31/15 at 15:00 Water (Free Water) 200 ml Q8H G-TUBE Last administered on 01/01/16at 17:55; Start 12/31/15 at 18:00; Stop 01/02/16 at 09:56; Status DC Sodium Chloride (Sodium Chloride) 1 gm BID TUBE Last administered on 01/03/16at 07:39; Start 12/31/15 at 21:00; Stop 01/03/16 at 09:08; Status DC Miscellaneous Information Hold Anticoagulation after midni... ONCE ONCE OTHER ; Start 01/01/16 at 10:15; Stop 01/01/16 at 10:29; Status DC Sodium Chloride (NS 1000 ml Inj) 1,000 ml @ 50 mls/hr Q20H IV Last administered on 01/02/16at 12:26; Start 01/01/16 at 18:00; Stop 01/03/16 at 10:07 ; Status DC Midazolam HCl (Versed Inj) 5 mg STK-MED ONCE .ROUTE ; Start 01/02/16 at 12:47; Stop 01/02/16 at 12:48; Status DC Vecuronium [place] (Norcuron 10 Mg Inj) 10 mg STK-MED ONCE .ROUTE ; Start at 12:47; Stop 01/02/16 at 12:48; Status DC Fentanyl Citrate (Sublimaze Inj) 250 mcg ONCE ONCE IV PUSH Last administered on 01/02/16at 15:00; Start 01/02/16 at 15:00; Stop 01/02/16 at 15:01; Status DC Midazolam HCl (Versed Inj) 10 mg ONCE ONCE IV PUSH Last administered on at 15:00; Start 01/02/16 at 15:00; Stop 01/02/16 at 15:01; Status DC Rocuronium [place] (Zemuron Inj) 100 mg BOLUS ONCE IV Last administered on at 15:00; Start 01/02/16 at 15:00; Stop 01/02/16 at 15:01; Status DC Ketamine HCl (Ketalar Inj) 500 mg STK-MED ONCE .ROUTE ; Start 01/02/16 at 14:30 ; Stop 01/02/16 at 14:31; Status DC Propofol 230 mg 230 mg STK-MED ONCE IV ; Start 01/02/16 at 16:51; Stop 01/02/16 at 16:52; Status DC Sodium Chloride (NS 1000 ml Inj) 1,000 ml @ 0 mls/hr Q0M IV ; Start 01/03/16 at 10:15 Ranitidine HCl (Zantac Liq) 150 mg Q12HR PO Last administered on 01/13/16at 20: 12; Start 01/04/16 at 09:00 Enoxaparin Sodium 90 mg 90 mg Q12HR SQ Last administered on 01/11/16at 10:01; Start 01/04/16 at 09:00; Stop 01/11/16 at 12:35; Status DC Sodium Chloride (NS 500 ml Inj) 500 ml @ 0 mls/hr BOLUS ONCE IV Last administered on 01/03/16at 22:57; Start 01/03/16 at 23:00; Stop 01/03/16 at 23:01 ; Status DC Insulin Aspart (NovoLOG SUPPLEMENTAL SCALE) 1 Q6HR SQ Last administered on 01/13at 06:26; Start 01/04/16 at 12:00 Potassium Chloride (KCl 40 Meq/30 ml Liq) 40 meq Q4H NG Last administered on at 16:21; Start 01/04/16 at 13:00; Stop 01/04/16 at 17:01; Status DC Warfarin Sodium 5 mg 5 mg DAILY@1600 PO Last administered on 01/09/16at 17:21; Start 01/04/16 at 16:00; Stop 01/10/16 at 10:06; Status DC Pharmacy Profile Note (Coumadin Consult Pharmacy) 0 ml @ 0 mls/hr UNSCH XX ; Start 01/04/16 at 12:30 Insulin Detemir (Levemir Inj) 10 units Q12HR SQ Last administered on 01/05/16at 08:00; Start 01/04/16 at 21:00; Stop 01/05/16 at 08:42; Status DC Insulin Detemir (Levemir Inj) 5 units NOW ONCE SQ Last administered on at 13:28; Start 01/04/16 at 12:45; Stop 01/04/16 at 12:46; Status DC Albuterol/ Ipratropium (Duoneb Neb) 1 ampule Q4HR NEB PRN NEB dyspnea Last administered on 01/10/16at 08:51; Start 01/07/16 at 08:15 Warfarin Sodium (Coumadin) 7.5 mg ONCE ONCE PO Last administered on 01/07/16at 16:40; Start 01/07/16 at 16:00; Stop 01/07/16 at 16:01; Status DC Nystatin (Mycostatin Powder) 1 applic Q12HR TOPICAL Last administered on at 20:15; Start 01/08/16 at 21:00 Ipratropium [place] (Atrovent Neb) 0.5 mg TID NEB NEB Last administered on at 21:00; Start 01/08/16 at 20:00 Warfarin Sodium (Coumadin) 5 mg DAILY@1600 PO Last administered on 01/11/16at 14 :26; Start 01/11/16 at 16:00; Stop 01/12/16 at 09:45; Status DC Warfarin Sodium (Coumadin) 6 mg ONCE PO Last administered on 01/10/16at 17:10; Start 01/10/16 at 16:00; Stop 01/10/16 at 21:00; Status DC Metoprolol Tartrate (Lopressor) 50 mg Q12HR GT Last administered on 01/11/16at 10:02; Start 01/10/16 at 11:00; Stop 01/11/16 at 12:30; Status DC Metoprolol Tartrate (Lopressor) 50 mg TID GT Last administered on 01/13/16at 17: 05; Start 01/11/16 at 13:00 Insulin Detemir (Levemir Inj) 10 units HS SQ Last administered on 01/11/16at 22: 23; Start 01/11/16 at 21:00; Stop 01/12/16 at 11:47; Status DC Warfarin Sodium (Coumadin) 4 mg DAILY@16 PO ; Start 01/12/16 at 16:00; Stop at 16:00; Status DC Insulin Detemir (Levemir Inj) 20 units HS SQ Last administered on 01/13/16at 20: 26; Start 01/12/16 at 21:00 Warfarin Sodium (Coumadin) 2 mg DAILY@16 PO Last administered on 01/13/16at 17: 05; Start 01/12/16 at 16:00 A/P Assessment and Plan A/P (1) CVA (cerebral vascular accident); 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 Continue bronchi dilators and pulmonary toilet Duonebs PRN Pulmonary consult appreciated (Dr. Brandon following) (3) A-fib will increase lopressor today- will monitor and adjust the regimen as needed. continue full anticoagulation with warfarin Echocardiogram completed in November shows preserved EF pharmacy consulted for coumadin dosing. (4) Non-Hodgkin lymphoma s/p brain biopsy on December 13, by Neurosurgery, Dr. Marin - Pathology consistent with acute infarct without evidence of lymphoma Seen by Oncology, Dr. Whyte, who has signed off for current admission as no active oncology issues (5) DM (diabetes mellitus) Patient with a hemoglobin A1c in November of above 7 increase Levemir and continue with sliding scale- will monitor and adjust the regimen as needed. (6) abdominal distention; obtain abdominal XR (7) low grade fever- will check UA- monitor temps DVT prophylaxis with coumadin. Discharge Planning dc planning to SNF-however with no funding- case management noted reviewed. Medardo Au MD Jan 14, 2016 08:22
[2016-01-14] MEDS: METOPROLOL TARTRATE 50 MG TAB GT SCH ×4 (08:24→17:19)
[2016-01-14] MEDS: SENNOSIDES SYRUP 8.8 MG/5 ML CUP TUBE SCH (08:24)
[2016-01-14] MEDS: RANITIDINE HCL SYRUP 150 MG/10 ML UDC PO SCH ×2 (08:24→21:37)
[2016-01-14] MEDS: levETIRAcetam 500 MG/5 ML UDC TUBE SCH ×2 (08:24→21:37)
[2016-01-14] MEDS: DOCUSATE SODIUM 100 MG/10 ML UDC TUBE SCH ×2 (08:24→21:37)
[2016-01-14] MEDS: LACTOBACILLUS ACIDOPHILUS 1 GM PACKET TUBE SCH ×2 (08:25→21:37)
[2016-01-14] MEDS: NYSTATIN 100,000 U/GM PWD 15 GM BTL TOPICAL SCH ×2 (08:32→21:55)
[2016-01-14] MEDS: RESP: IPRATROPIUM 0.5 MG/2.5 ML NEB NEB SCH ×3 (08:49→19:20)
--- NOTE | 2016-01-14 10:55 | RADRPT ---
EXAM DATE/TIME: 01/14/2016 10:19 [facility] COMPARISON: No previous studies available for comparison. INDICATIONS : Abdomen distention. Evaluate for obstruction. MEDICAL HISTORY : Hypertension. Diabetes mellitus type II. SURGICAL HISTORY : None. ENCOUNTER: Initial ACUITY: 1 day PAIN SCORE: Non-responsive. LOCATION: Abdomen FINDINGS: The patient has a G-tube in place. Moderate stool is seen throughout the colon. There is no free ai r or obstruction. The portion of the bony skeleton visualized is unremarkable. CONCLUSION: Moderate stool; otherwise, negative. Octavio Ramírez MD FACR on January 14, 2016 at 10:43 Board Certified Radiologist. This report was verified electronically.
[2016-01-14] MEDS: WARFARIN SOD 4 MG TAB PO SCH (17:20)
[2016-01-14 23:02] LABS: BACTERIA, URINE RARE /hpf; BLOOD, URINE NEG (NEG); COMMENT (UR) CATH-CULT NOT IND; CULTURE IF INDICATED CATH CULTURE NOT IND; GLUCOSE,URINE NEG (NEG); HYALINE CAST, URINE 4 /lpf (RARE); KETONE, URINE NEG (NEG); NITRITE,URINE NEG (NEG); URINE COLOR YELLOW (YELLW/STRAW)
[2016-01-15] VITALS (12 sets, daily range): BP systolic 108–160; BP diastolic 72–94; PULSE 78–124; RESP 18–24; TEMP 96.9–100.7; O2SAT 93–97
[2016-01-15] MEDS: INSULIN ASPART SUPPLEMENTAL SCALE SQ SCH ×4 (00:26→18:12)
[2016-01-15] MEDS: ACETAMINOPHEN/HYDROcodone 325 MG/5 MG TAB PO PRN (03:49)
[2016-01-15] MEDS: ACETAMINOPHEN 650 MG/20.3 ML UDC TUBE PRN (05:15)
[2016-01-15 07:22] LABS: INTERNATIONAL NORMALIZED RATIO 1.7 RATIO; PROTHROMBIN TIME - PATIENT 18.1 SEC (9.8-11.4)
[2016-01-15] MEDS: RESP: IPRATROPIUM 0.5 MG/2.5 ML NEB NEB SCH ×3 (07:32→21:02)
[2016-01-15] MEDS: LACTOBACILLUS ACIDOPHILUS 1 GM PACKET TUBE SCH ×2 (09:00→20:43)
[2016-01-15] MEDS: NYSTATIN 100,000 U/GM PWD 15 GM BTL TOPICAL SCH ×2 (09:00→20:44)
[2016-01-15] MEDS: RANITIDINE HCL SYRUP 150 MG/10 ML UDC PO SCH ×2 (09:01→20:33)
[2016-01-15] MEDS: SENNOSIDES SYRUP 8.8 MG/5 ML CUP TUBE SCH ×2 (09:01→21:00)
[2016-01-15] MEDS: DOCUSATE SODIUM 100 MG/10 ML UDC TUBE SCH (09:01)
[2016-01-15] MEDS: METOPROLOL TARTRATE 50 MG TAB GT SCH ×3 (09:01→18:13)
[2016-01-15] MEDS: levETIRAcetam 500 MG/5 ML UDC TUBE SCH ×2 (09:01→20:33)
[2016-01-15] MEDS: SODIUM CHLORIDE 0.9% FLUSH 5 ML FLUSH IVF PRN (09:02)
--- NOTE | 2016-01-15 10:05 | HHI.PR ---
Subjective Remarks in no acute distress.low grade fever earlier this morning. d/w RN and otherwise no other acute issues over night. family at the bedside. Objective Vitals Vital Signs Date Time Temp Pulse Resp B/P Pulse Ox O2 Delivery O2 Flow Rate FiO2 01/15/16 08:09 78 01/15/16 08:00 98.8 111 21 130/72 94 01/15/16 07:32 96 T-piece 6.00 40 01/15/16 06:26 98.2 01/15/16 05:10 100.7 124 18 124/75 93 01/15/16 01:24 98.7 104 24 146/79 93 01/14/16 21:54 98.8 84 16 159/82 94 01/14/16 20:00 90 01/14/16 19:20 93 T-piece 6.00 50 01/14/16 16:00 98.9 95 20 137/86 94 01/14/16 12:00 97.5 97 20 133/82 97 I/O 01/14/16 01/14/16 01/14/16 01/15/16 01/15/16 01/15/16 07:00 15:00 23:00 07:00 15:00 23:00 Intake Total 0 ml Output Total 500 ml 300 ml Balance -500 ml -300 ml Intake Oral 0 ml Output Urine Total 500 ml 300 ml # Voids 2 2 # Bowel Movements 1 1 Imaging Last Impressions Abdomen X-Ray 01/14/16 0000 Signed Impressions: Service Date/Time: Thursday, January 14, 2016 10:19 - CONCLUSION: Moderate stool; otherwise, negative. Octavio Ramírez MD FACR Chest X-Ray 01/05/16 0600 Signed Impressions: Service Date/Time: Tuesday, January 05, 2016 05:00 - CONCLUSION: Mild bibasilar atelectasis. No significant change. 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 No evidence of carotid stenosis. Glen Zamora MD Head Magnetic Resonance Angiography 12/22/15 1445 Signed Impressions: Service Date/Time: Tuesday, December 22, 2015 09:22 - CONCLUSION: 1. 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 2. Anterior circulation remains patent without aneurysmal disease. Bobby Gray MD Head/Brain Mag Res Venography 12/22/15 0000 Signed Impressions: Service Date/Time: Tuesday, December 22, 2015 09:22 - CONCLUSION: Normal MRV. Jonel Jones Jr., MD Head CT 12/21/15 0546 Signed Impressions: Service Date/Time: December 06:01 - CONCLUSION: 1. No focal or acute intracranial hemorrhage. 2. There is a new area of decreased density in the left occipital lobe suggestive of a recent nonhemorrhagic infarction. 3. The decreased density in the previously noted right occipital lobe has increased in size. Michael Hamilton MD Objective Remarks GENERAL: on Trach- in no apparent distress. CARDIOVASCULAR: Regular rate and regular rhythm without murmurs, gallops, or rubs. RESPIRATORY: Clear to auscultation. Breath sounds equal bilaterally. No wheezes , rales, or rhonchi. GASTROINTESTINAL: Abdomen soft, non-tender,distended. hypoactive bowel sounds-PEG in place MUSCULOSKELETAL: Extremities without clubbing, cyanosis, or edema. NEURO: awake Procedures PEG and trach Medications and IVs Current Medications IV Flush (NS Flush) 2 ml UNSCH PRN IVF FLUSH AFTER USING IV ACCESS Last administered on 01/15/16at 09:02; Start 12/21/15 at 06:00 Ondansetron HCl (Zofran Inj) 4 mg STK-MED ONCE .ROUTE ; Start 12/21/15 at 06:22; Stop 12/21/15 at 06:23; Status DC Ondansetron HCl (Zofran Inj) 4 mg ONCE ONCE IV PUSH Last administered on at 06:43; Start 12/21/15 at 06:30; Stop 12/21/15 at 06:31; Status DC Diltiazem HCl 20 mg 20 mg ONCE ONCE IV Last administered on 12/21/15at 06:42; Start 12/21/15 at 06:30; Stop 12/21/15 at 06:31; Status DC Diltiazem HCl/ Sodium Chloride (Cardizem Inj/NS Inj) 125 ml @ 0 mls/hr TITRATE IV Last administered on 12/21/15at 06:47; Start 12/21/15 at 06:30; Stop 12/21/15 at 13:00; Status DC Acetaminophen (Tylenol) 650 mg ONCE ONCE PO ; Start 12/21/15 at 06:45; Stop 12/20 at 06:46; Status DC Lorazepam (Ativan Inj) 1 mg ONCE ONCE IV PUSH Last administered on 12/21/15at 07 :22; Start 12/21/15 at 07:15; Stop 12/21/15 at 07:16; Status DC Etomidate (Amidate Inj) 40 mg STK-MED ONCE .ROUTE Last administered on at 08:17; Start 12/21/15 at 07:37; Stop 12/21/15 at 07:38; Status DC Succinylcholine Chloride 200 mg 200 mg STK-MED ONCE .ROUTE Last administered on 12/21/15at 08:18; Start 12/21/15 at 07:37; Stop 12/21/15 at 07:38; Status DC Propofol (Diprivan 1000 Mg/100ml Inj) 100 ml @ As Directed STK-MED ONCE .ROUTE Last administered on 12/21/15at 08:19; Start 12/21/15 at 07:46; Stop 12/21/15 at 07:47; Status DC Propofol (Diprivan 1000 Mg/100ml Inj) search Sets for Drip. NOW PRN IV SEDATION Last administered on 12/22/15at 06:25; Start 12/21/15 at 08:30; Stop 12/28 at 15:43; Status DC Gadodiamide (Omniscan Pf Inj) 18 ml STK-MED ONCE IV Last administered on at 10:11; Start 12/21/15 at 10:11; Stop 12/21/15 at 10:12; Status DC Pantoprazole Sodium (Protonix Inj) 40 mg DAILY IV Last administered on at 07:39; Start 12/21/15 at 13:00; Stop 01/03/16 at 10:10; Status DC Albuterol/ Ipratropium (Duoneb Neb) 1 ampule Q6HR NEB INH Last administered on 12/25/15at 07:51; Start 12/21/15 at 13:00; Stop 12/25/15 at 13:00; Status DC Miscellaneous Information 1 [id number] Last administered on 12/21/15at 13:00; Start 12/21/15 at 13:00; Stop 01/12/16 at 11:47; Status DC Chlorhexidine Gluconate (Chlorhexidine 2% Cloth) 3 pack Taper DAILY@04 TOP Last administered on 01/11/16at 04:10; Start 12/22/15 at 04:00; Stop 01/12/16 at 11:47; Status DC Chlorhexidine Gluconate 3 pack 3 pack UNSCH PRN TOP HYGIENIC CARE; Start at 13:00; Stop 01/12/16 at 11:47; Status DC Sodium Chloride (NS 1000 ml Inj) 1,000 ml @ 75 mls/hr [id number] IV Last administered on 12/22/15at 17:00; Start 12/21/15 at 13:00; Stop 12/22/15 at 19:01; Status DC Dextrose (D50w (Vial) Inj) 25 ml UNSCH PRN IV PUSH HYPOGLYCEMIA-SEE COMMENTS; Start 12/21/15 at 13:00 Glucagon (Glucagon Inj) 1 mg UNSCH PRN OTHER HYPOGLYCEMIA-SEE COMMENTS; Start 12/21/15 at 13:00 Insulin Human Regular (NovoLIN R SUPPLEMENTAL SCALE) 1 Q6H SQ Last administered on 01/04/16at 06:31; Start 12/21/15 at 13:00; Stop 01/04/16 at 10:05 ; Status DC Levetriacetam (Keppra) 500 mg Q12HR PO Last administered on 12/27/15at 09:00; Start 12/21/15 at 13:45; Stop 12/27/15 at 09:44; Status DC Heparin Sodium (Porcine) (Heparin Inj) 5,000 units BID SQ Last administered on 12/22/15at 20:52; Start 12/21/15 at 21:00; Stop 12/23/15 at 08:32; Status DC Warfarin Sodium (Coumadin) 7.5 mg ONCE ONCE PO Last administered on 12/21/15at 21:43; Start 12/21/15 at 21:00; Stop 12/21/15 at 21:01; Status DC Warfarin Sodium (Coumadin) 5 mg DAILY@16 PO Last administered on 12/23/15at 16:00 ; Start 12/22/15 at 16:00; Stop 12/26/15 at 09:29; Status DC Patient Medication Teaching (Coumadin Booklet) 1 ONCE ONCE XX Last administered on 12/21/15at 20:15; Start 12/21/15 at 20:15; Stop 12/21/15 at 20:16; Status DC Chlorhexidine Gluconate (Peridex 0.12% Liq) 15 ml BID@08,20 MT Last administered on 01/12/16at 08:00; Start 12/22/15 at 20:00; Stop 01/12/16 at 11:47 ; Status DC Gadodiamide 20 ml 20 ml STK-MED ONCE IV Last administered on 12/22/15at 09:55; Start 12/22/15 at 09:55; Stop 12/22/15 at 09:56; Status DC Pharmacy Profile Note ml @ 0 mls/hr UNSCH OTHER ; Start 12/22/15 at 11:00; Stop 12/22/15 at 19:43; Status DC Sodium Chloride 1,000 ml @ 50 mls/hr Q20H IV Last administered on 12/24/15at 20: 02; Start 12/22/15 at 18:44; Stop 12/25/15 at 11:52; Status DC Pharmacy Profile Note (Coumadin Consult Pharmacy) 0 ml @ 0 mls/hr UNSCH OTHER ; Start 12/22/15 at 19:45; Stop 01/04/16 at 12:25; Status DC Acetaminophen 650 mg 650 mg Q6H PRN PO TEMP > 100 Last administered on at 13:24; Start 12/23/15 at 02:45; Stop 12/30/15 at 15:04; Status DC Potassium Chloride 100 ml @ 50 mls/hr Q2H PRN IV For Potassium 2.8 - 3.2 mEq/L ; Start 12/23/15 at 08:30; Stop 01/09/16 at 11:14; Status DC Potassium Chloride (KCl 20 Meq Premix Inj) 100 ml @ 50 mls/hr Q2H PRN IV For Potassium 2.8 - 3.2 mEq/L; Start 12/23/15 at 08:30; Stop 01/09/16 at 11:14; Status DC Potassium Chloride 40 meq 40 meq UNSCH PRN PO/TUBE For Potassium 3.3 - 3.5 mEq/ L; Start 12/23/15 at 08:30; Stop 01/09/16 at 11:14; Status DC Potassium Chloride 100 ml @ 25 mls/hr UNSCH PRN IV For Potassium 3.3 - 3.5 mEq /L; Start 12/23/15 at 08:30; Stop 01/09/16 at 11:14; Status DC Potassium Chloride 100 ml @ 50 mls/hr Q2H PRN IV For Potassium 3.3 - 3.5 mEq/L ; Start 12/23/15 at 08:30; Stop 01/09/16 at 11:14; Status DC Magnesium Sulfate/ Sodium Chloride (Magnesium Sulfate Inj/NS Inj) 100 ml @ 50 mls/hr UNSCH PRN IV For Magnesium 0.9 - 1.1 mg/dL; Start 12/23/15 at 08:30; Stop 01/09/16 at 11:14; Status DC Magnesium Oxide 800 mg 800 mg UNSCH PRN PO For Magnesium 1.2 - 1.6 mg/dL; Start 12/23/15 at 08:30; Stop 01/09/16 at 11:14; Status DC Magnesium Sulfate/ Sodium Chloride (Magnesium Sulfate Inj/NS Inj) 100 ml @ 50 mls/hr UNSCH PRN IV For Magnesium 1.2 - 1.6 mg/dL; Start 12/23/15 at 08:30; Stop 01/09/16 at 11:14; Status DC Potassium Phosphate 2000 mg 2,000 mg Q4H PRN PO For Phosphorus < 2.5 mg/dL; Start 12/23/15 at 08:30; Stop 01/09/16 at 11:14; Status DC Sodium Phosphate/ Sodium Chloride (Sodium Phosphate Inj/NS 250 ml Inj) 250 ml @ 42 mls/hr UNSCH PRN IV For Phosphorus < 2.5 mg/dL; Start 12/23/15 at 08:30; Stop 01/09/16 at 11:14; Status DC Potassium Chloride (KCl 40 Meq/30 ml Liq) 40 meq UNSCH PRN PO/TUBE SEE LABEL COMMENTS; Start 12/23/15 at 08:30; Stop 01/09/16 at 11:14; Status DC Potassium Phosphate 2000 mg 2,000 mg UNSCH PRN PO/TUBE SEE LABEL COMMENTS; Start 12/23/15 at 08:30; Stop 01/09/16 at 11:14; Status DC Potassium Phosphate 30 mmol/ Sodium Chloride 260 ml @ 42 mls/hr UNSCH PRN IV SEE LABEL COMMENTS; Start 12/23/15 at 08:30; Stop 01/09/16 at 11:14; Status DC Sodium Chloride 1,000 ml @ 75 mls/hr [id number] IV ; Start 12/23/15 at 08:30; Stop 12/23/15 at 08:30; Status DC Piperacillin Sod/ Tazobactam Sod 50 ml @ 100 mls/hr Q6H IV Last administered on 12/30/15at 10:02; Start 12/23/15 at 10:00; Stop 12/30/15 at 14:50; Status DC Vancomycin HCl/ Sodium Chloride (Vancomycin Inj/ NS 250 ml Inj) 250 ml @ 250 mls/hr Q12H IV Last administered on 12/29/15at 09:01; Start 12/24/15 at 08:45; Stop 12/29/15 at 15:33; Status DC Warfarin Sodium (Coumadin) 4 mg DAILY@16 PO Last administered on 12/28/15at 16:00 ; Start 12/26/15 at 16:00; Stop 01/04/16 at 12:25; Status DC Levetriacetam (Keppra Liq) 500 mg Q12HR TUBE Last administered on 01/15/16at 09 :01; Start 12/27/15 at 21:00 Docusate Sodium (Colace Liq) 100 mg Q12HR TUBE Last administered on 01/15/16at 09:01; Start 12/27/15 at 21:00 Sennosides (Senna Liq) 8.8 mg DAILY TUBE Last administered on 01/15/16at 09:01 ; Start 12/27/15 at 17:00 Bisacodyl (Dulcolax Supp) 10 mg ONCE ONCE RECTAL ; Start 12/27/15 at 16:15; Stop 12/27/15 at 16:15; Status DC Albuterol/ Ipratropium (Duoneb Neb) 1 ampule Q4HR NEB PRN NEB RESPIRATORY DISTRESS Last administered on 12/29/15at 12:17; Start 12/27/15 at 22:00; Stop at 08:16; Status DC Bisacodyl (Dulcolax Supp) 10 mg ONCE ONCE RECTAL ; Start 12/28/15 at 12:00; Stop 12/28/15 at 12:01; Status DC Sodium Chloride (Sodium Chloride) 1 gm BID TUBE Last administered on 12/29/15at 09:02; Start 12/28/15 at 21:00; Stop 12/29/15 at 15:43; Status DC Lactulose (Lactulose Liq) 30 ml DAILY TUBE Last administered on 12/29/15at 09:02 ; Start 12/28/15 at 20:30; Stop 12/29/15 at 15:43; Status DC Levofloxacin (Levaquin) 750 mg DAILY@16 TUBE ; Start 12/29/15 at 16:00; Stop 05/05 at 16:00; Status DC Sodium Chloride (Sodium Chloride) 1 gm DAILY TUBE Last administered on at 07:29; Start 12/30/15 at 09:00; Stop 12/31/15 at 14:08; Status DC Water 200 ml 200 ml Q6HR G-TUBE Last administered on 12/31/15at 04:19; Start 06/05 at 14:45; Stop 12/31/15 at 07:31; Status DC Ceftriaxone Sodium/Sodium Chloride (Rocephin Inj/NS Inj) 100 ml @ 200 mls/hr Q12H IV Last administered on 01/03/16at 02:47; Start 12/30/15 at 15:00; Stop at 10:09; Status DC Acetaminophen (Tylenol 650 Mg/ 20 ml Liq) 650 mg Q6H PRN TUBE TEMP >100.4 Last administered on 01/15/16at 05:15; Start 12/30/15 at 15:15 Lactobacillus Acidophilus (Lactinex Pkt) 1 gm BID TUBE Last administered on at 09:00; Start 12/30/15 at 21:00 Enoxaparin Sodium (Lovenox Inj) 90 mg Q12H SQ Last administered on 01/01/16at 21 :57; Start 12/31/15 at 08:00; Stop 01/03/16 at 10:33; Status DC Water (Free Water) 100 ml Q12H G-TUBE ; Start 12/31/15 at 18:00; Stop 12/31/15 at 18:00; Status DC Acetaminophen/ Hydrocodone Bitart (Dola 5-325 Mg) 1 tab Q6H PRN PO PAIN Last administered on 01/15/16at 03:49; Start 12/31/15 at 15:00 Fentanyl Citrate (Sublimaze Inj) 25 mcg Q1H PRN IV PUSH BREAKTHROUGH PAIN; Start 12/31/15 at 15:00 Water (Free Water) 200 ml Q8H G-TUBE Last administered on 01/01/16at 17:55; Start 12/31/15 at 18:00; Stop 01/02/16 at 09:56; Status DC Sodium Chloride (Sodium Chloride) 1 gm BID TUBE Last administered on 01/03/16at 07:39; Start 12/31/15 at 21:00; Stop 01/03/16 at 09:08; Status DC Miscellaneous Information Hold Anticoagulation after midni... ONCE ONCE OTHER ; Start 01/01/16 at 10:15; Stop 01/01/16 at 10:29; Status DC Sodium Chloride (NS 1000 ml Inj) 1,000 ml @ 50 mls/hr Q20H IV Last administered on 01/02/16at 12:26; Start 01/01/16 at 18:00; Stop 01/03/16 at 10:07 ; Status DC Midazolam HCl (Versed Inj) 5 mg STK-MED ONCE .ROUTE ; Start 01/02/16 at 12:47; Stop 01/02/16 at 12:48; Status DC Vecuronium Ayr (Norcuron 10 Mg Inj) 10 mg STK-MED ONCE .ROUTE ; Start at 12:47; Stop 01/02/16 at 12:48; Status DC Fentanyl Citrate (Sublimaze Inj) 250 mcg ONCE ONCE IV PUSH Last administered on 01/02/16at 15:00; Start 01/02/16 at 15:00; Stop 01/02/16 at 15:01; Status DC Midazolam HCl (Versed Inj) 10 mg ONCE ONCE IV PUSH Last administered on at 15:00; Start 01/02/16 at 15:00; Stop 01/02/16 at 15:01; Status DC Rocuronium Ayr (Zemuron Inj) 100 mg BOLUS ONCE IV Last administered on at 15:00; Start 01/02/16 at 15:00; Stop 01/02/16 at 15:01; Status DC Ketamine HCl (Ketalar Inj) 500 mg STK-MED ONCE .ROUTE ; Start 01/02/16 at 14:30 ; Stop 01/02/16 at 14:31; Status DC Propofol 230 mg 230 mg STK-MED ONCE IV ; Start 01/02/16 at 16:51; Stop 01/02/16 at 16:52; Status DC Sodium Chloride (NS 1000 ml Inj) 1,000 ml @ 0 mls/hr Q0M IV ; Start 01/03/16 at 10:15 Ranitidine HCl (Zantac Liq) 150 mg Q12HR PO Last administered on 01/15/16at 09: 01; Start 01/04/16 at 09:00 Enoxaparin Sodium 90 mg 90 mg Q12HR SQ Last administered on 01/11/16at 10:01; Start 01/04/16 at 09:00; Stop 01/11/16 at 12:35; Status DC Sodium Chloride (NS 500 ml Inj) 500 ml @ 0 mls/hr BOLUS ONCE IV Last administered on 01/03/16at 22:57; Start 01/03/16 at 23:00; Stop 01/03/16 at 23:01 ; Status DC Insulin Aspart (NovoLOG SUPPLEMENTAL SCALE) 1 Q6HR SQ Last administered on 01/14at 05:26; Start 01/04/16 at 12:00 Potassium Chloride (KCl 40 Meq/30 ml Liq) 40 meq Q4H NG Last administered on at 16:21; Start 01/04/16 at 13:00; Stop 01/04/16 at 17:01; Status DC Warfarin Sodium 5 mg 5 mg DAILY@1600 PO Last administered on 01/09/16at 17:21; Start 01/04/16 at 16:00; Stop 01/10/16 at 10:06; Status DC Pharmacy Profile Note (Coumadin Consult Pharmacy) 0 ml @ 0 mls/hr UNSCH XX ; Start 01/04/16 at 12:30 Insulin Detemir (Levemir Inj) 10 units Q12HR SQ Last administered on 01/05/16at 08:00; Start 01/04/16 at 21:00; Stop 01/05/16 at 08:42; Status DC Insulin Detemir (Levemir Inj) 5 units NOW ONCE SQ Last administered on at 13:28; Start 01/04/16 at 12:45; Stop 01/04/16 at 12:46; Status DC Albuterol/ Ipratropium (Duoneb Neb) 1 ampule Q4HR NEB PRN NEB dyspnea Last administered on 01/10/16at 08:51; Start 01/07/16 at 08:15 Warfarin Sodium (Coumadin) 7.5 mg ONCE ONCE PO Last administered on 01/07/16at 16:40; Start 01/07/16 at 16:00; Stop 01/07/16 at 16:01; Status DC Nystatin (Mycostatin Powder) 1 applic Q12HR TOPICAL Last administered on at 09:00; Start 01/08/16 at 21:00 Ipratropium Ayr (Atrovent Neb) 0.5 mg TID NEB NEB Last administered on at 07:32; Start 01/08/16 at 20:00 Warfarin Sodium (Coumadin) 5 mg DAILY@1600 PO Last administered on 01/11/16at 14 :26; Start 01/11/16 at 16:00; Stop 01/12/16 at 09:45; Status DC Warfarin Sodium (Coumadin) 6 mg ONCE PO Last administered on 01/10/16at 17:10; Start 01/10/16 at 16:00; Stop 01/10/16 at 21:00; Status DC Metoprolol Tartrate (Lopressor) 50 mg Q12HR GT Last administered on 01/11/16at 10:02; Start 01/10/16 at 11:00; Stop 01/11/16 at 12:30; Status DC Metoprolol Tartrate (Lopressor) 50 mg TID GT Last administered on 01/14/16at 08: 24; Start 01/11/16 at 13:00; Stop 01/14/16 at 08:28; Status DC Insulin Detemir (Levemir Inj) 10 units HS SQ Last administered on 01/11/16at 22: 23; Start 01/11/16 at 21:00; Stop 01/12/16 at 11:47; Status DC Warfarin Sodium (Coumadin) 4 mg DAILY@16 PO ; Start 01/12/16 at 16:00; Stop at 16:00; Status DC Insulin Detemir (Levemir Inj) 20 units HS SQ Last administered on 01/13/16at 20: 26; Start 01/12/16 at 21:00; Stop 01/14/16 at 08:28; Status DC Warfarin Sodium (Coumadin) 2 mg DAILY@16 PO Last administered on 01/13/16at 17: 05; Start 01/12/16 at 16:00; Stop 01/14/16 at 11:23; Status DC Insulin Detemir (Levemir Inj) 22 units HS SQ Last administered on 01/14/16at 21: 37; Start 01/14/16 at 21:00 Metoprolol Tartrate (Lopressor) 75 mg TID GT Last administered on 01/15/16at 09: 01; Start 01/14/16 at 09:00 Miscellaneous (Pill Splitter) 1 ea UNSCH PRN OTHER SEE LABEL COMMENTS; Start at 08:30 Warfarin Sodium (Coumadin) 4 mg DAILY@1600 PO Last administered on 01/14/16at 17 :20; Start 01/14/16 at 16:00 Patient Medication Teaching (Coumadin Booklet) 1 ONCE ONCE XX ; Start 01/14/16 at 16:00; Stop 01/14/16 at 16:01; Status DC A/P Assessment and Plan A/P (1) CVA (cerebral vascular accident); 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 Continue bronchi dilators and pulmonary toilet Duonebs PRN Pulmonary consult appreciated (Dr. Brandon following) (3) A-fib continue lopressor - will monitor and adjust the regimen as needed. continue full anticoagulation with warfarin Echocardiogram completed in November shows preserved EF pharmacy consulted for coumadin dosing. (4) Non-Hodgkin lymphoma s/p brain biopsy on December 13, by Neurosurgery, Dr. Marin - Pathology consistent with acute infarct without evidence of lymphoma Seen by Oncology, Dr. Whyte, who has signed off for current admission as no active oncology issues (5) DM (diabetes mellitus) Patient with a hemoglobin A1c in November of above 7 increase Levemir to 24 units subq qhs and continue with sliding scale- will monitor and adjust the regimen as needed. (6) low grade fever- UA negative- obtain CXR. DVT prophylaxis with coumadin. Discharge Planning dc planning to SNF-however with no funding- case management noted reviewed. Medardo Au MD Jan 15, 2016 10:05
--- NOTE | 2016-01-15 10:46 | HHI.HCSW ---
[employer] Visit Cognitive Functioning Mr. Flores lying in bed, appears to be comfortable. Listening to music via headphones provided by family. He opens eyes at times, pretty lethargic. . Significant Family/Friend Cousin, sister, significant other, and mother at bedside. His cousin has questions regarding getting Mr. Flores to sit in a chair for a few hours. states she does not believe he is ready for this yet. Inform me they are trying to establish a communication regiment with him (sign on wall for blinking, eye movement for yes/no questions). Family states at times he seems to follow and answer appropriately. . Pertinent Social History Mr. Flores is originally from [place]. He moved to the around 35 years ago, first to [place] and later to [place]. He is not legally but remains with his ex-, Leanne. They have been together for 31+ years and have three children together: Leanne, Gerald, and Ginny. Gerald is currently in [facility] for work. Mr. Flores has 2 brothers and 7 sisters. His father is of old age. His mother is alive and was living with the patient. There is no reported illness in the family, Leanne will attempt to find out more prior to family meeting tomorrow. 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 He is described as a "heavy smoker since age 14". Reported to smoke at least 1PPD, increasingly more in the past year relating to anxiety and fear of cancer returning. Denies alcohol use. He is described as an animated and charismatic man. He best responds to slow and clear speech, as Bahraini is his second language. He reportedly responds well to positive reinforcement at well. . Quality of Life Values/Goals He is very much a family man, he comes from a large family and has a good support system. . Advance Directive In previous discussion: In speaking with his daughter Leanne, she does not believe he has ever completed advanced directives. Explained to her, if he is unable to make medical decisions for himself, per [place] Statutes, medical proxy decision making would fall to the majority of adult children, as Mr. Flores is not legally . She repots she and her siblings are willing and have been involved since the beginning. They are supported by their mother, patient's ex- and current significant other, Leanne. Important Contacts Leanne, daughter: [phone] Ginny, daughter: [phone] Gerald, son: currently in [facility] for work but has communication with his siblings. Leanne, ex-/current significant other: [phone] . Follow Up Visit Palliative care will continue to follow throughout hospitalization. SW will follow for emotional and social support. Shelly Jones Jan 15, 2016 10:46
--- NOTE | 2016-01-15 13:34 | RADRPT ---
EXAM DATE/TIME: 01/15/2016 12:09 [facility] COMPARISON: CHEST SINGLE AP, January 05, 2016, 5:00. INDICATIONS : Fever. MEDICAL HISTORY : Hypertension. Diabetes mellitus type II. SURGICAL HISTORY : None. ENCOUNTER: Subsequent ACUITY: 1 month PAIN SCORE: Non-responsive. LOCATION: chest FINDINGS: Underinflated AP view the chest demonstrates a normal-sized cardiac silhouette. Tracheostomy remains present. There is atelectasis at the lung bases. No effusion, consolidation, or pneumothorax is visua lized. Bones and soft tissues demonstrate no acute finding. There are old left rib fractures. CONCLUSION: Underinflation with atelectasis at the lung bases. Otherwise, no acute cardiopulmonary abnormality is visualized. Glen Gordon MD on January 15, 2016 at 13:28 Board Certified Radiologist. This report was verified electronically.
--- NOTE | 2016-01-15 15:42 | HHI.HCPN ---
Reason for visit a. To assist with evaluation and management of symptoms including: dyspnea, encephalopathy, depression b. To assist medical decision maker(s) with: better understanding of current medical conditions; weighing benefits/burdens of medical treatment options; making medical treatment decisions. Subjective/Interval History Patient seen today to follow-up on goals, comfort. Low-grade fever earlier today 100.7. CXR done today with no significant changes , continues to indicate bibasilar atelectasis. Continues tolerate T piece without desaturation, occasional suctioning via in-line suction. Abdominal imaging done yesterday for slight abdominal distention , negative for acute process indicative of stool. Patient tolerating tube feeding, having bowel movements. Urine output adequate. INR within therapeutic range. Insulin long- acting was increased to 24 by medical attending. Discussed case with medical attending, Celexa also added. Tolerating T piece, 28% FiO2. Requiring suctioning of some celeste secretions. Slightly tachycardic at time 110s to 120s. Lovenox has been DC'd as patient transition to Coumadin, INR 2.4. OT/PT continues to see and assist with range of motion, patient not developing contractures. Patient seen in room, ex-, multiple other family members present. Discussed with them condition, prognosis, recent diagnostics, medication adjustments and addition of Celexa. Patient cousin from [place] is visiting and has multiple questions and concerns regarding medications as she has a with Parkinson's and multiple other conditions which she relates to this patient. Advised that we defer to immediate family in terms of decision making. History brought forward from initial consult by Rita MOCTEZUMA on 01/10/16: This 59-year-old patient was admitted on 12/21/15 via the ED for facial drooping. ED physician notes that patient and patients are poor historians, EMS reported the could not provide good timelines to them. Patient also reported headache, difficulty ambulating. He had known history of recent findings of mass in the brain. During ED course had deterioration of clinical condition and able to protect his airway, unable to follow commands patient was intubated and CT brain obtained. He was admitted for further evaluation and management to the ICU. [facility] was consulted and following patient. Pathology on recent brain biopsy (12/13) still pending. CLINICAL/HOSPITAL COURSE: * CT brain= no focal or acute intracranial hemorrhage. New area decreased density in left occipital lobe suggestive of recent nonhemorrhagic infarct, decreased density in previously noted right occipital lobe has increased in size * Brain MRI = new area of restricted diffusion within left occipital lobe suggesting acute infarct. Interval enlargement of the area of restricted diffusion within right occipital lobe suggesting probable extension of right occipital and started on. Underlying enhancement of right occipital lobe is slightly worse than the previous exam and nonspecific. Biopsy has been performed and results are pending. Tiny focal area of restricted diffusion within right cerebellar hemisphere consistent with probable acute/subacute lacunar infarct. Signal abnormality in the SWI sequence within the right occipital lobe suggesting some hemorrhage in biopsy bed. No midline shift or extra-axial fluid collections. * CXR= no acute cardiopulmonary disease * -Neurology consulted, ordered MRA to look for vertebrobasilar stenosis, echo done last admission notes normal EF with normal valves and normal left atrial size. EEG also ordered. MR venogram ordered. EEG= abnormal study consistent with her encephalopathy. MRV indicated basilar occlusion; neurology notes discussion with family regarding chemical code only, also notes discussion regarding risks associated with the anticoagulates, was discussed with radiologist/INR recommended not helpful to extract basilar clot as this could result in patient's . It was felt the colin was infarcted. Further neurology notes "he could be locked in", is acting as if colin is infarcted. * Oncology known to patient also consulted for non-Hodgkin's lymphoma: Dr Whyte documents that there was no evidence of residual or recurrent disease on CT scans of chest, abdomen, pelvis done in October and November of this year. Pathology was still pending, had been sent to [facility] for second opinion. No acute oncology interventions recommended at that time, will follow. * 6 - 12/25 febrile. CPAP trials. Remains on vent off of sedation. Withdrawing to pain. Repeat brain MRI= evolving brainstem stroke. Neurology notes extensive discussion with family, notes discussion the patient is locked in but fully aware, family would like to see help patient does over the next 3 months. 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 Biopsy brain lesion appears consistent with acute infarct no lymphoma. Family desires ongoing aggressive measures, will proceed with tracheostomy. Sputum culture positive sensitive Klebsiella. * 01/01 tracheostomy, PEG tube placement * 01/04 trach collar trials, alternating with T piece. Low-grade fever 100.5. CXR = mild bibasilar atelectasis. Neuro: Spontaneously opening eyes, looking up / down, directionally to commands. * 01/07 still "locked in " , transferred off ICU to regular floor. * 01/08 pulmonology consulted-not CXR clear no evidence of pulmonary infection. He may have some underlying COPD recommends continued aerosol treatments. Further notes long discussion with family at bedside regarding tracheostomy, long-term use of trach until patient able to protect his airway, no further recommendations. Palliative care consulted to assist with clarification of goals of treatment. Advance Directives Living Will: Never completed Health Care Surrogate: Never completed Objective Vital Signs Date Time Temp Pulse Resp B/P Pulse Ox O2 Delivery O2 Flow Rate FiO2 01/15/16 12:00 98.7 116 20 131/79 96 01/15/16 08:09 78 01/15/16 08:00 98.8 111 21 130/72 94 01/15/16 07:32 96 T-piece 6.00 40 01/15/16 06:26 98.2 01/15/16 05:10 100.7 124 18 124/75 93 01/15/16 01:24 98.7 104 24 146/79 93 01/14/16 21:54 98.8 84 16 159/82 94 01/14/16 20:00 90 01/14/16 19:20 93 T-piece 6.00 50 01/14/16 16:00 98.9 95 20 137/86 94 Intake & Output 01/15/16 01/15/16 07:00 19:00 Intake Total 385 ml Output Total 300 ml Balance -300 ml 385 ml Tube Feeding 385 ml Output Urine Total 300 ml # Voids 2 Physical Exam CONSTITUTIONAL/GENERAL: This is an adequately nourished patient, awake, no apparent distress TUBES/LINES/DRAINS: PIV upper extremity, Arevalo catheter, PEG tube, tracheostomy , SCDs SKIN: No jaundice, rashes, or lesions.No wounds seen anteriorly. Skin temperature appropriate. Not diaphoretic. EYES: Pupils equal and round and reactive. + lateral movement of eyes at times though not consistently. No scleral icterus. No injection or drainage. Fundi not examined. CARDIOVASCULAR: Regular rate and rhythm without murmurs. No JVD. Peripheral pulses symmetric. No peripheral edema. RESPIRATORY/CHEST: Symmetric, unlabored respirations. T piece, 20% FiO2. Clear to auscultation. Breath sounds equal bilaterally. GASTROINTESTINAL: Abdomen soft, non-tender, nondistended. ?slight firmness mid lower abd. No palpable masses. Bowel sounds normoactive.TF infusing to PEG MUSCULOSKELETAL: Extremities without clubbing, cyanosis, or edema. No joint effusion noted. No mottling or clubbing. NEUROLOGICAL: Awake at times, though other times asleep eyes closed during exam Appears to make eye contact with examiner.+ lateral movement of eyes. Nonverbal unable to assess orientation, does not follow commands or nod to questions, extremities flaccid. PSYCHIATRIC: Difficult to fully assess due to clinical condition. no apparent hallucinations or other psychotic thought process. Diagnostic Tests Laboratory Laboratory Tests Test 01/13/16 01/14/16 01/14/16 01/15/16 06:58 04:29 22:30 06:24 Prothrombin Time 21.2 SEC 17.5 SEC 18.1 SEC (9.8-11.4) (9.8-11.4) (9.8-11.4) Prothromb Time International 2.0 RATIO 1.6 RATIO 1.7 RATIO Ratio Urine Color YELLOW (YELLW/STRAW) Urine Turbidity CLEAR (CLEAR) Urine pH 5.0 (5.0-8.5) Urine Specific [place] 1.013 (1.002-1.035) Urine Protein NEG mg/dL (NEG-TRACE) Urine Glucose (UA) NEG mg/dL (NEG) Urine Ketones NEG mg/dL (NEG) Urine Occult Blood NEG (NEG) Urine Nitrite NEG (NEG) Urine Bilirubin NEG (NEG) Urine Urobilinogen LESS THAN 2.0 MG/DL (LESS THAN 2.0) Urine Leukocyte Esterase NEG (NEG) Urine RBC 3 /hpf (0-3) Urine WBC 4 /hpf (0-5) Urine Amorphous Sediment FEW Urine Bacteria RARE /hpf (NONE) Urine Hyaline Casts 4 /lpf (RARE) Microscopic Urinalysis Comment CATH-CULT NOT IND Imaging Last Impressions Chest X-Ray 01/15/16 0000 Signed Impressions: Service Date/Time: Friday, January 15, 2016 12:09 - CONCLUSION: Underinflation with atelectasis at the lung bases. Otherwise, no acute cardiopulmonary abnormality is visualized. Glen Gordon MD Abdomen X-Ray 01/14/16 0000 Signed Impressions: Service Date/Time: Thursday, January 14, 2016 10:19 - CONCLUSION: Moderate stool; otherwise, negative. 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 No evidence of carotid stenosis. Glen Zamora MD Head Magnetic Resonance Angiography 12/22/15 1445 Signed Impressions: Service Date/Time: Tuesday, December 22, 2015 09:22 - CONCLUSION: 1. 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 2. Anterior circulation remains patent without aneurysmal disease. Bobby Gray MD Head/Brain Mag Res Venography 12/22/15 0000 Signed Impressions: Service Date/Time: Tuesday, December 22, 2015 09:22 - CONCLUSION: Normal MRV. Jonel Jones Jr., MD Head CT 12/21/15 0546 Signed Impressions: Service Date/Time: December 06:01 - CONCLUSION: 1. No focal or acute intracranial hemorrhage. 2. There is a new area of decreased density in the left occipital lobe suggestive of a recent nonhemorrhagic infarction. 3. The decreased density in the previously noted right occipital lobe has increased in size. Michael Hamilton MD Procedures * 01/01 tracheostomy, PEG tube placement . 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; EEG indicates encephalopathy, neuro following patient felt to be in a "locked-in "state (2) Non-Hodgkin lymphoma Comment: -In remission status post chemotherapy completed May 2015 (3) Acute respiratory failure Comment: Pulmonology following, medical management (4) A-fib (5) Status post stereotactic brain biopsy (6) Brain lesion Comment: Status post biopsy November 2015; pathology consistent with acute infarct without evidence of lymphoma (7) DM (diabetes mellitus) Symptom Scale: (1) Dysphagia Comment: Status post significant CVA, has had PEG tube placed (2) Dyspnea Comment: Respiratory failure secondary to CVA, status post tracheostomy, pulmonary following (3) Encephalopathy Comment: Significant CVA, "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 Albumin 2.4. (5) Depression Comment: At risk for related to "locked in status", communication difficulties , situational, but would likely benefit from anti-depressant Pertinent Non-Medical Issues * Psychosocial:Mr. Flores is originally from [place]. He moved to the around 35 years ago, first to [place] and later to [place]. He is not legally but remains with his ex-, Leanne. They have been together for 31+ years and have three children together: Leanne, Gerald, and Ginny. Gerald is currently in [facility] for work. Mr. Flores has 2 brothers and 7 sisters. His father is of old age. His mother is alive and was living with the patient. Greatly enjoys his family. Retired. 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 * Spiritual: * Legal:Patient due to clinical condition is currently unable to participate in medical decision making. Not clear if or when he will regain this ability. Family does not believe he has completed advance directives. per [place] Statutes, medical proxy decision making would fall to the majority of adult children, as Mr. Flores is not legally . * Ethical issues impacting care: Important Contacts Leanne, daughter: [phone] Ginny, daughter: [phone] Gerald, son: currently in [facility] for work but has communication with his siblings. Leanne, ex-: [phone] Prognosis This patient has had 20 day hospital course thus far, admitted on 62 for a large brainstem infarct, bilateral occipital infarcts. He has subsequently had ongoing encephalopathy and severe communication limitations, neurology feels he is in a "locked-in "state. He has suffered from respiratory failure likely secondary to significant CVA. Appears he should be able to survive this acute hospitalization, however not clear when or if he will regain ability to communicate, based on current assessments patient will require long-term care placement. He will remain high risk for potential competition/setbacks due to immobile status including infections, DVT etc. . Code Status: Full Code Plan * GOALS: Very aggressive. See family conference component on initial consult for additional detail. Meeting In summary: Initially they had many questions regarding admission and biopsy which occurred in November, they ask about differentials and decision making leading to the biopsy, and have many concerns regarding that clinical course--advised that I could not speak to any of those questions or processes as I was not involved in his care and decision making at that time, recommend them to direct those specific questions to those initial providers which provided those services. Otherwise review of conditions, goals as detailed in "issues discussed". Family expresses that Mr. Flores did remarkably well following his chemotherapy for lymphoma just last year, and that he had been doing fine until recent issue in November. They endorsed that he is a fighter, that he is a very optimistic person, and that they are certain he is "in there "and would want to continue fighting for whatever recovery he might have." They have many questions regarding rehabilitation services and placement as well as financial coverage for these services, advised that case management could assist them with the various applications which already in process, but that any placement would depend on funding, or alternatively [facility] placement which is up to any individual institution. They would like to maximize PT/OT/ST ongoing while here in the hospital. They also request courtesy consult of to follow him for pulmonary as he is known to the family through their buddhism. * 01/15/16 goals remain aggressive. Family would not like patient on any scheduled opiates or other sedating medications, currently he is not on any medications in that class does have a prn norco 5 mg available which he has had sparing use of about once every couple days * CODE STATUSfull code * Symptoms: == Dysphagia--Status post significant CVA, has had PEG tube placed == Dyspnea --Respiratory failure secondary to CVA, status post tracheostomy, pulmonary following; currently no apparent distress/ CXR bibasilar atelectasis, unchanged. 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 Albumin 2.4.; tolerating TF == depression/anxiety -- At risk for related to "locked in status", communication difficulties, situational, but would likely benefit from anti- depressant. Family reports tearful at times when they talk to him. d/w medical attending, celexa 20mg QD has been added. * Palliative care will continue to follow during hospital course as condition evolves, to assist patient/decision-maker with understanding of medical conditions, weighing benefits/burdens of treatment options, for clarification of goals of treatment. Additionally will assist with any symptoms of palliative concern . Time Spent Total Floor Time (mins): 35 Face to Face Time (mins): 25 >50% Counseling/Coord of Care: Yes (d/w RN, medical attending) Attestation To help prompt me to consider important information that might be impacting today's encounter and assessment, information from prior notes written by myself or my colleagues may have been "brought forward" into today's note. My signature on this note, however, is an attestation that I personally performed the exam, history, and/or decision-making noted today, and, unless otherwise indicated, the interactions with patient, family, and staff as well as the review of records all occurred today. I also attest that the listed assessment and stated plan reflect my best clinical judgment today based on the combination of historical information, prior notes, and today's exam/ interactions. When time spent is documented, it refers only to time spent today by the signer, or if indicated, combined time spent today by collaborating physician/nurse practitioner. Tiara Colin Jan 15, 2016 15:42
[2016-01-15] MEDS: WARFARIN SOD 4 MG TAB PO SCH (15:59)
[2016-01-15] MEDS: INSULIN DETEMIR 100 UNITS/ML VIAL SQ SCH (20:33)
[2016-01-16] VITALS (10 sets, daily range): BP systolic 123–140; BP diastolic 64–84; PULSE 90–118; RESP 17–22; TEMP 98.9–101.1; O2SAT 92–98
[2016-01-16] MEDS: INSULIN ASPART SUPPLEMENTAL SCALE SQ SCH ×4 (00:52→18:20)
[2016-01-16] MEDS: ACETAMINOPHEN 650 MG/20.3 ML UDC TUBE PRN (02:44)
[2016-01-16] MEDS: ACETAMINOPHEN/HYDROcodone 325 MG/5 MG TAB PO PRN (02:45)
[2016-01-16] MEDS: METOPROLOL TARTRATE 50 MG TAB GT SCH ×3 (08:01→18:02)
[2016-01-16] MEDS: levETIRAcetam 500 MG/5 ML UDC TUBE SCH ×2 (08:01→22:08)
[2016-01-16] MEDS: LACTOBACILLUS ACIDOPHILUS 1 GM PACKET TUBE SCH ×2 (08:01→21:00)
[2016-01-16] MEDS: RANITIDINE HCL SYRUP 150 MG/10 ML UDC PO SCH ×2 (08:01→22:08)
[2016-01-16] MEDS: NYSTATIN 100,000 U/GM PWD 15 GM BTL TOPICAL SCH ×2 (08:02→21:00)
[2016-01-16 08:03] LABS: AUTOMATED NEUTROPHIL # 6.8 TH/MM3 (1.8-7.7); BASOPHIL # 0.1 TH/MM3 (0-0.2); BASOPHIL % 0.7 % (0.0-2.0); EOSINOPHIL # 0.2 TH/MM3 (0-0.4); EOSINOPHIL % 2.5 % (0.0-4.0); HEMATOCRIT 31.8 % (39.0-51.0); HEMO FLAGS DIFF FINAL; LYMPHOCYTE # 1.6 TH/MM3 (1.0-4.8); MEAN CELL VOLUME 83.1 FL (80.0-100.0); MEAN CORPUSCULAR HEMOGLOBIN 25.7 PG (27.0-34.0); MONO % 7.9 % (0.0-8.0); NEUT % 71.9 % (16.0-70.0); PLATELET COUNT 284 TH/MM3 (150-450); RED BLOOD COUNT 3.83 MIL/MM3 (4.50-5.90); RED CELL DISTRIBUTION WIDTH 15.3 % (11.6-17.2); WHITE BLOOD COUNT 9.4 TH/MM3 (4.0-11.0)
[2016-01-16 08:06] LABS: INTERNATIONAL NORMALIZED RATIO 2.1 RATIO; PROTHROMBIN TIME - PATIENT 23.2 SEC (9.8-11.4)
[2016-01-16] MEDS: SENNOSIDES SYRUP 8.8 MG/5 ML CUP TUBE SCH ×2 (08:36→22:09)
--- NOTE | 2016-01-16 09:06 | HHI.PR ---
Subjective Remarks in no acute distress. not as alert as yesterday.had a fever spike earlier. T max 101.1. d/w RN and no other acute issues noted. Objective Vitals Vital Signs Date Time Temp Pulse Resp B/P Pulse Ox O2 Delivery O2 Flow Rate FiO2 01/16/16 08:00 100.3 113 21 127/77 96 01/16/16 06:50 101.1 118 22 125/67 96 01/16/16 04:00 18 01/16/16 00:43 99.8 118 18 134/64 95 01/15/16 21:21 93 T-piece 10.00 98 01/15/16 21:02 94 T-piece 6.00 50 01/15/16 20:56 99.5 114 20 108/79 96 01/15/16 20:00 114 01/15/16 16:00 96.9 111 22 160/94 97 01/15/16 12:00 98.7 116 20 131/79 96 I/O 01/15/16 01/15/16 01/15/16 01/16/16 01/16/16 01/16/16 07:00 15:00 23:00 07:00 15:00 23:00 Intake Total 385 ml 1334 ml Output Total 300 ml Balance 385 ml 1334 ml -300 ml Tube Feeding 385 ml 1334 ml Output Urine Total 300 ml # Voids 2 # Bowel Movements 1 0 Result Diagram: 01/16/16 0710 Imaging Last Impressions Chest X-Ray 01/15/16 0000 Signed Impressions: Service Date/Time: Friday, January 15, 2016 12:09 - CONCLUSION: Underinflation with atelectasis at the lung bases. Otherwise, no acute cardiopulmonary abnormality is visualized. Glen Gordon MD Abdomen X-Ray 01/14/16 0000 Signed Impressions: Service Date/Time: Thursday, January 14, 2016 10:19 - CONCLUSION: Moderate stool; otherwise, negative. 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 No evidence of carotid stenosis. Glen Zamora MD Head Magnetic Resonance Angiography 12/22/15 1445 Signed Impressions: Service Date/Time: Tuesday, December 22, 2015 09:22 - CONCLUSION: 1. 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 2. Anterior circulation remains patent without aneurysmal disease. Bobby Gray MD Head/Brain Mag Res Venography 12/22/15 0000 Signed Impressions: Service Date/Time: Tuesday, December 22, 2015 09:22 - CONCLUSION: Normal MRV. Jonel Jones Jr., MD Head CT 12/21/15 0546 Signed Impressions: Service Date/Time: December 06:01 - CONCLUSION: 1. No focal or acute intracranial hemorrhage. 2. There is a new area of decreased density in the left occipital lobe suggestive of a recent nonhemorrhagic infarction. 3. The decreased density in the previously noted right occipital lobe has increased in size. Michael Hamilton MD Objective Remarks GENERAL: on Trach- in no apparent distress. CARDIOVASCULAR: Regular rate and regular rhythm without murmurs, gallops, or rubs. RESPIRATORY: Clear to auscultation. Breath sounds equal bilaterally. No wheezes , rales, or rhonchi. GASTROINTESTINAL: Abdomen soft, non-tender,distended. hypoactive bowel sounds-PEG in place MUSCULOSKELETAL: Extremities without clubbing, cyanosis, or edema. NEURO: doesn't seem as alert as yesterday Procedures PEG and trach Medications and IVs Current Medications IV Flush (NS Flush) 2 ml UNSCH PRN IVF FLUSH AFTER USING IV ACCESS Last administered on 01/15/16at 09:02; Start 12/21/15 at 06:00 Ondansetron HCl (Zofran Inj) 4 mg STK-MED ONCE .ROUTE ; Start 12/21/15 at 06:22; Stop 12/21/15 at 06:23; Status DC Ondansetron HCl (Zofran Inj) 4 mg ONCE ONCE IV PUSH Last administered on at 06:43; Start 12/21/15 at 06:30; Stop 12/21/15 at 06:31; Status DC Diltiazem HCl 20 mg 20 mg ONCE ONCE IV Last administered on 12/21/15at 06:42; Start 12/21/15 at 06:30; Stop 12/21/15 at 06:31; Status DC Diltiazem HCl/ Sodium Chloride (Cardizem Inj/NS Inj) 125 ml @ 0 mls/hr TITRATE IV Last administered on 12/21/15at 06:47; Start 12/21/15 at 06:30; Stop 12/21/15 at 13:00; Status DC Acetaminophen (Tylenol) 650 mg ONCE ONCE PO ; Start 12/21/15 at 06:45; Stop 12/20 at 06:46; Status DC Lorazepam (Ativan Inj) 1 mg ONCE ONCE IV PUSH Last administered on 12/21/15at 07 :22; Start 12/21/15 at 07:15; Stop 12/21/15 at 07:16; Status DC Etomidate (Amidate Inj) 40 mg STK-MED ONCE .ROUTE Last administered on at 08:17; Start 12/21/15 at 07:37; Stop 12/21/15 at 07:38; Status DC Succinylcholine Chloride 200 mg 200 mg STK-MED ONCE .ROUTE Last administered on 12/21/15at 08:18; Start 12/21/15 at 07:37; Stop 12/21/15 at 07:38; Status DC Propofol (Diprivan 1000 Mg/100ml Inj) 100 ml @ As Directed STK-MED ONCE .ROUTE Last administered on 12/21/15at 08:19; Start 12/21/15 at 07:46; Stop 12/21/15 at 07:47; Status DC Propofol (Diprivan 1000 Mg/100ml Inj) search Sets for Drip. NOW PRN IV SEDATION Last administered on 12/22/15at 06:25; Start 12/21/15 at 08:30; Stop 12/28 at 15:43; Status DC Gadodiamide (Omniscan Pf Inj) 18 ml STK-MED ONCE IV Last administered on at 10:11; Start 12/21/15 at 10:11; Stop 12/21/15 at 10:12; Status DC Pantoprazole Sodium (Protonix Inj) 40 mg DAILY IV Last administered on at 07:39; Start 12/21/15 at 13:00; Stop 01/03/16 at 10:10; Status DC Albuterol/ Ipratropium (Duoneb Neb) 1 ampule Q6HR NEB INH Last administered on 12/25/15at 07:51; Start 12/21/15 at 13:00; Stop 12/25/15 at 13:00; Status DC Miscellaneous Information 1 [id number] Last administered on 12/21/15at 13:00; Start 12/21/15 at 13:00; Stop 01/12/16 at 11:47; Status DC Chlorhexidine Gluconate (Chlorhexidine 2% Cloth) 3 pack Taper DAILY@04 TOP Last administered on 01/11/16at 04:10; Start 12/22/15 at 04:00; Stop 01/12/16 at 11:47; Status DC Chlorhexidine Gluconate 3 pack 3 pack UNSCH PRN TOP HYGIENIC CARE; Start at 13:00; Stop 01/12/16 at 11:47; Status DC Sodium Chloride (NS 1000 ml Inj) 1,000 ml @ 75 mls/hr [id number] IV Last administered on 12/22/15at 17:00; Start 12/21/15 at 13:00; Stop 12/22/15 at 19:01; Status DC Dextrose (D50w (Vial) Inj) 25 ml UNSCH PRN IV PUSH HYPOGLYCEMIA-SEE COMMENTS; Start 12/21/15 at 13:00 Glucagon (Glucagon Inj) 1 mg UNSCH PRN OTHER HYPOGLYCEMIA-SEE COMMENTS; Start 12/21/15 at 13:00 Insulin Human Regular (NovoLIN R SUPPLEMENTAL SCALE) 1 Q6H SQ Last administered on 01/04/16at 06:31; Start 12/21/15 at 13:00; Stop 01/04/16 at 10:05 ; Status DC Levetriacetam (Keppra) 500 mg Q12HR PO Last administered on 12/27/15at 09:00; Start 12/21/15 at 13:45; Stop 12/27/15 at 09:44; Status DC Heparin Sodium (Porcine) (Heparin Inj) 5,000 units BID SQ Last administered on 12/22/15at 20:52; Start 12/21/15 at 21:00; Stop 12/23/15 at 08:32; Status DC Warfarin Sodium (Coumadin) 7.5 mg ONCE ONCE PO Last administered on 12/21/15at 21:43; Start 12/21/15 at 21:00; Stop 12/21/15 at 21:01; Status DC Warfarin Sodium (Coumadin) 5 mg DAILY@16 PO Last administered on 12/23/15at 16:00 ; Start 12/22/15 at 16:00; Stop 12/26/15 at 09:29; Status DC Patient Medication Teaching (Coumadin Booklet) 1 ONCE ONCE XX Last administered on 12/21/15at 20:15; Start 12/21/15 at 20:15; Stop 12/21/15 at 20:16; Status DC Chlorhexidine Gluconate (Peridex 0.12% Liq) 15 ml BID@08,20 MT Last administered on 01/12/16at 08:00; Start 12/22/15 at 20:00; Stop 01/12/16 at 11:47 ; Status DC Gadodiamide 20 ml 20 ml STK-MED ONCE IV Last administered on 12/22/15at 09:55; Start 12/22/15 at 09:55; Stop 12/22/15 at 09:56; Status DC Pharmacy Profile Note ml @ 0 mls/hr UNSCH OTHER ; Start 12/22/15 at 11:00; Stop 12/22/15 at 19:43; Status DC Sodium Chloride 1,000 ml @ 50 mls/hr Q20H IV Last administered on 12/24/15at 20: 02; Start 12/22/15 at 18:44; Stop 12/25/15 at 11:52; Status DC Pharmacy Profile Note (Coumadin Consult Pharmacy) 0 ml @ 0 mls/hr UNSCH OTHER ; Start 12/22/15 at 19:45; Stop 01/04/16 at 12:25; Status DC Acetaminophen 650 mg 650 mg Q6H PRN PO TEMP > 100 Last administered on at 13:24; Start 12/23/15 at 02:45; Stop 12/30/15 at 15:04; Status DC Potassium Chloride 100 ml @ 50 mls/hr Q2H PRN IV For Potassium 2.8 - 3.2 mEq/L ; Start 12/23/15 at 08:30; Stop 01/09/16 at 11:14; Status DC Potassium Chloride (KCl 20 Meq Premix Inj) 100 ml @ 50 mls/hr Q2H PRN IV For Potassium 2.8 - 3.2 mEq/L; Start 12/23/15 at 08:30; Stop 01/09/16 at 11:14; Status DC Potassium Chloride 40 meq 40 meq UNSCH PRN PO/TUBE For Potassium 3.3 - 3.5 mEq/ L; Start 12/23/15 at 08:30; Stop 01/09/16 at 11:14; Status DC Potassium Chloride 100 ml @ 25 mls/hr UNSCH PRN IV For Potassium 3.3 - 3.5 mEq /L; Start 12/23/15 at 08:30; Stop 01/09/16 at 11:14; Status DC Potassium Chloride 100 ml @ 50 mls/hr Q2H PRN IV For Potassium 3.3 - 3.5 mEq/L ; Start 12/23/15 at 08:30; Stop 01/09/16 at 11:14; Status DC Magnesium Sulfate/ Sodium Chloride (Magnesium Sulfate Inj/NS Inj) 100 ml @ 50 mls/hr UNSCH PRN IV For Magnesium 0.9 - 1.1 mg/dL; Start 12/23/15 at 08:30; Stop 01/09/16 at 11:14; Status DC Magnesium Oxide 800 mg 800 mg UNSCH PRN PO For Magnesium 1.2 - 1.6 mg/dL; Start 12/23/15 at 08:30; Stop 01/09/16 at 11:14; Status DC Magnesium Sulfate/ Sodium Chloride (Magnesium Sulfate Inj/NS Inj) 100 ml @ 50 mls/hr UNSCH PRN IV For Magnesium 1.2 - 1.6 mg/dL; Start 12/23/15 at 08:30; Stop 01/09/16 at 11:14; Status DC Potassium Phosphate 2000 mg 2,000 mg Q4H PRN PO For Phosphorus < 2.5 mg/dL; Start 12/23/15 at 08:30; Stop 01/09/16 at 11:14; Status DC Sodium Phosphate/ Sodium Chloride (Sodium Phosphate Inj/NS 250 ml Inj) 250 ml @ 42 mls/hr UNSCH PRN IV For Phosphorus < 2.5 mg/dL; Start 12/23/15 at 08:30; Stop 01/09/16 at 11:14; Status DC Potassium Chloride (KCl 40 Meq/30 ml Liq) 40 meq UNSCH PRN PO/TUBE SEE LABEL COMMENTS; Start 12/23/15 at 08:30; Stop 01/09/16 at 11:14; Status DC Potassium Phosphate 2000 mg 2,000 mg UNSCH PRN PO/TUBE SEE LABEL COMMENTS; Start 12/23/15 at 08:30; Stop 01/09/16 at 11:14; Status DC Potassium Phosphate 30 mmol/ Sodium Chloride 260 ml @ 42 mls/hr UNSCH PRN IV SEE LABEL COMMENTS; Start 12/23/15 at 08:30; Stop 01/09/16 at 11:14; Status DC Sodium Chloride 1,000 ml @ 75 mls/hr [id number] IV ; Start 12/23/15 at 08:30; Stop 12/23/15 at 08:30; Status DC Piperacillin Sod/ Tazobactam Sod 50 ml @ 100 mls/hr Q6H IV Last administered on 12/30/15at 10:02; Start 12/23/15 at 10:00; Stop 12/30/15 at 14:50; Status DC Vancomycin HCl/ Sodium Chloride (Vancomycin Inj/ NS 250 ml Inj) 250 ml @ 250 mls/hr Q12H IV Last administered on 12/29/15at 09:01; Start 12/24/15 at 08:45; Stop 12/29/15 at 15:33; Status DC Warfarin Sodium (Coumadin) 4 mg DAILY@16 PO Last administered on 12/28/15at 16:00 ; Start 12/26/15 at 16:00; Stop 01/04/16 at 12:25; Status DC Levetriacetam (Keppra Liq) 500 mg Q12HR TUBE Last administered on 01/16/16at 08 :01; Start 12/27/15 at 21:00 Docusate Sodium (Colace Liq) 100 mg Q12HR TUBE Last administered on 01/15/16at 09:01; Start 12/27/15 at 21:00; Status Hold Sennosides (Senna Liq) 8.8 mg DAILY TUBE Last administered on 01/15/16at 09:01 ; Start 12/27/15 at 17:00; Stop 01/15/16 at 20:37; Status DC Bisacodyl (Dulcolax Supp) 10 mg ONCE ONCE RECTAL ; Start 12/27/15 at 16:15; Stop 12/27/15 at 16:15; Status DC Albuterol/ Ipratropium (Duoneb Neb) 1 ampule Q4HR NEB PRN NEB RESPIRATORY DISTRESS Last administered on 12/29/15at 12:17; Start 12/27/15 at 22:00; Stop at 08:16; Status DC Bisacodyl (Dulcolax Supp) 10 mg ONCE ONCE RECTAL ; Start 12/28/15 at 12:00; Stop 12/28/15 at 12:01; Status DC Sodium Chloride (Sodium Chloride) 1 gm BID TUBE Last administered on 12/29/15at 09:02; Start 12/28/15 at 21:00; Stop 12/29/15 at 15:43; Status DC Lactulose (Lactulose Liq) 30 ml DAILY TUBE Last administered on 12/29/15at 09:02 ; Start 12/28/15 at 20:30; Stop 12/29/15 at 15:43; Status DC Levofloxacin (Levaquin) 750 mg DAILY@16 TUBE ; Start 12/29/15 at 16:00; Stop 05/05 at 16:00; Status DC Sodium Chloride (Sodium Chloride) 1 gm DAILY TUBE Last administered on at 07:29; Start 12/30/15 at 09:00; Stop 12/31/15 at 14:08; Status DC Water 200 ml 200 ml Q6HR G-TUBE Last administered on 12/31/15at 04:19; Start 06/05 at 14:45; Stop 12/31/15 at 07:31; Status DC Ceftriaxone Sodium/Sodium Chloride (Rocephin Inj/NS Inj) 100 ml @ 200 mls/hr Q12H IV Last administered on 01/03/16at 02:47; Start 12/30/15 at 15:00; Stop at 10:09; Status DC Acetaminophen (Tylenol 650 Mg/ 20 ml Liq) 650 mg Q6H PRN TUBE TEMP >100.4 Last administered on 01/16/16at 02:44; Start 12/30/15 at 15:15 Lactobacillus Acidophilus (Lactinex Pkt) 1 gm BID TUBE Last administered on at 08:01; Start 12/30/15 at 21:00 Enoxaparin Sodium (Lovenox Inj) 90 mg Q12H SQ Last administered on 01/01/16at 21 :57; Start 12/31/15 at 08:00; Stop 01/03/16 at 10:33; Status DC Water (Free Water) 100 ml Q12H G-TUBE ; Start 12/31/15 at 18:00; Stop 12/31/15 at 18:00; Status DC Acetaminophen/ Hydrocodone Bitart ([place] 5-325 Mg) 1 tab Q6H PRN PO PAIN Last administered on 01/16/16at 02:45; Start 12/31/15 at 15:00 Fentanyl Citrate (Sublimaze Inj) 25 mcg Q1H PRN IV PUSH BREAKTHROUGH PAIN; Start 12/31/15 at 15:00 Water (Free Water) 200 ml Q8H G-TUBE Last administered on 01/01/16at 17:55; Start 12/31/15 at 18:00; Stop 01/02/16 at 09:56; Status DC Sodium Chloride (Sodium Chloride) 1 gm BID TUBE Last administered on 01/03/16at 07:39; Start 12/31/15 at 21:00; Stop 01/03/16 at 09:08; Status DC Miscellaneous Information Hold Anticoagulation after midni... ONCE ONCE OTHER ; Start 01/01/16 at 10:15; Stop 01/01/16 at 10:29; Status DC Sodium Chloride (NS 1000 ml Inj) 1,000 ml @ 50 mls/hr Q20H IV Last administered on 01/02/16at 12:26; Start 01/01/16 at 18:00; Stop 01/03/16 at 10:07 ; Status DC Midazolam HCl (Versed Inj) 5 mg STK-MED ONCE .ROUTE ; Start 01/02/16 at 12:47; Stop 01/02/16 at 12:48; Status DC Vecuronium [place] (Norcuron 10 Mg Inj) 10 mg STK-MED ONCE .ROUTE ; Start at 12:47; Stop 01/02/16 at 12:48; Status DC Fentanyl Citrate (Sublimaze Inj) 250 mcg ONCE ONCE IV PUSH Last administered on 01/02/16at 15:00; Start 01/02/16 at 15:00; Stop 01/02/16 at 15:01; Status DC Midazolam HCl (Versed Inj) 10 mg ONCE ONCE IV PUSH Last administered on at 15:00; Start 01/02/16 at 15:00; Stop 01/02/16 at 15:01; Status DC Rocuronium [place] (Zemuron Inj) 100 mg BOLUS ONCE IV Last administered on at 15:00; Start 01/02/16 at 15:00; Stop 01/02/16 at 15:01; Status DC Ketamine HCl (Ketalar Inj) 500 mg STK-MED ONCE .ROUTE ; Start 01/02/16 at 14:30 ; Stop 01/02/16 at 14:31; Status DC Propofol 230 mg 230 mg STK-MED ONCE IV ; Start 01/02/16 at 16:51; Stop 01/02/16 at 16:52; Status DC Sodium Chloride (NS 1000 ml Inj) 1,000 ml @ 0 mls/hr Q0M IV ; Start 01/03/16 at 10:15 Ranitidine HCl (Zantac Liq) 150 mg Q12HR PO Last administered on 01/16/16at 08: 01; Start 01/04/16 at 09:00 Enoxaparin Sodium 90 mg 90 mg Q12HR SQ Last administered on 01/11/16at 10:01; Start 01/04/16 at 09:00; Stop 01/11/16 at 12:35; Status DC Sodium Chloride (NS 500 ml Inj) 500 ml @ 0 mls/hr BOLUS ONCE IV Last administered on 01/03/16at 22:57; Start 01/03/16 at 23:00; Stop 01/03/16 at 23:01 ; Status DC Insulin Aspart (NovoLOG SUPPLEMENTAL SCALE) 1 Q6HR SQ Last administered on 01/15at 06:00; Start 01/04/16 at 12:00 Potassium Chloride (KCl 40 Meq/30 ml Liq) 40 meq Q4H NG Last administered on at 16:21; Start 01/04/16 at 13:00; Stop 01/04/16 at 17:01; Status DC Warfarin Sodium 5 mg 5 mg DAILY@1600 PO Last administered on 01/09/16at 17:21; Start 01/04/16 at 16:00; Stop 01/10/16 at 10:06; Status DC Pharmacy Profile Note (Coumadin Consult Pharmacy) 0 ml @ 0 mls/hr UNSCH XX ; Start 01/04/16 at 12:30 Insulin Detemir (Levemir Inj) 10 units Q12HR SQ Last administered on 01/05/16at 08:00; Start 01/04/16 at 21:00; Stop 01/05/16 at 08:42; Status DC Insulin Detemir (Levemir Inj) 5 units NOW ONCE SQ Last administered on at 13:28; Start 01/04/16 at 12:45; Stop 01/04/16 at 12:46; Status DC Albuterol/ Ipratropium (Duoneb Neb) 1 ampule Q4HR NEB PRN NEB dyspnea Last administered on 01/10/16at 08:51; Start 01/07/16 at 08:15 Warfarin Sodium (Coumadin) 7.5 mg ONCE ONCE PO Last administered on 01/07/16at 16:40; Start 01/07/16 at 16:00; Stop 01/07/16 at 16:01; Status DC Nystatin (Mycostatin Powder) 1 applic Q12HR TOPICAL Last administered on at 08:02; Start 01/08/16 at 21:00 Ipratropium [place] (Atrovent Neb) 0.5 mg TID NEB NEB Last administered on at 21:02; Start 01/08/16 at 20:00 Warfarin Sodium (Coumadin) 5 mg DAILY@1600 PO Last administered on 01/11/16at 14 :26; Start 01/11/16 at 16:00; Stop 01/12/16 at 09:45; Status DC Warfarin Sodium (Coumadin) 6 mg ONCE PO Last administered on 01/10/16at 17:10; Start 01/10/16 at 16:00; Stop 01/10/16 at 21:00; Status DC Metoprolol Tartrate (Lopressor) 50 mg Q12HR GT Last administered on 01/11/16at 10:02; Start 01/10/16 at 11:00; Stop 01/11/16 at 12:30; Status DC Metoprolol Tartrate (Lopressor) 50 mg TID GT Last administered on 01/14/16at 08: 24; Start 01/11/16 at 13:00; Stop 01/14/16 at 08:28; Status DC Insulin Detemir (Levemir Inj) 10 units HS SQ Last administered on 01/11/16at 22: 23; Start 01/11/16 at 21:00; Stop 01/12/16 at 11:47; Status DC Warfarin Sodium (Coumadin) 4 mg DAILY@16 PO ; Start 01/12/16 at 16:00; Stop at 16:00; Status DC Insulin Detemir (Levemir Inj) 20 units HS SQ Last administered on 01/13/16at 20: 26; Start 01/12/16 at 21:00; Stop 01/14/16 at 08:28; Status DC Warfarin Sodium (Coumadin) 2 mg DAILY@16 PO Last administered on 01/13/16at 17: 05; Start 01/12/16 at 16:00; Stop 01/14/16 at 11:23; Status DC Insulin Detemir (Levemir Inj) 22 units HS SQ Last administered on 01/14/16at 21: 37; Start 01/14/16 at 21:00; Stop 01/15/16 at 10:06; Status DC Metoprolol Tartrate (Lopressor) 75 mg TID GT Last administered on 01/16/16at 08: 01; Start 01/14/16 at 09:00 Miscellaneous (Pill Splitter) 1 ea UNSCH PRN OTHER SEE LABEL COMMENTS; Start at 08:30 Warfarin Sodium (Coumadin) 4 mg DAILY@1600 PO Last administered on 01/15/16at 15 :59; Start 01/14/16 at 16:00 Patient Medication Teaching (Coumadin Booklet) 1 ONCE ONCE XX ; Start 01/14/16 at 16:00; Stop 01/14/16 at 16:01; Status DC Insulin Detemir (Levemir Inj) 24 units HS SQ Last administered on 01/15/16at 20: 33; Start 01/15/16 at 21:00 Citalopram Hydrobromide (CeleXA) 20 mg DAILY PEG Last administered on at 08:01; Start 01/16/16 at 09:00 Sennosides (Senna Liq) 8.8 mg BID TUBE Last administered on 01/16/16at 08:36; Start 01/15/16 at 21:00 A/P Assessment and Plan A/P (1) CVA (cerebral vascular accident); 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 (2) SIRS ( fever spike 101 and tachycardia)- source?- UA and CXR negative for infection will check the blood cultures- consult ID- continue to monitor temps- antipyretics as needed. (3) Acute respiratory failure Secondary to CVA, Status post tracheostomy. Continue bronchi dilators and pulmonary toilet Duonebs PRN Pulmonary consult appreciated (Dr. Brandon following) (4) A-fib continue lopressor - will monitor and adjust the regimen as needed. continue full anticoagulation with warfarin Echocardiogram completed in November shows preserved EF pharmacy consulted for coumadin dosing. (5) Non-Hodgkin lymphoma s/p brain biopsy on December 13, by Neurosurgery, Dr. Marin - Pathology consistent with acute infarct without evidence of lymphoma Seen by Oncology, Dr. Whyte, who has signed off for current admission as no active oncology issues (6) DM (diabetes mellitus) Patient with a hemoglobin A1c in November of above 7 continue Levemir with sliding scale- will monitor and adjust the regimen as needed. DVT prophylaxis with coumadin. Discharge Planning dc planning to SNF-however with no funding- case management noted reviewed. Medardo Au MD Jan 16, 2016 09:06
[2016-01-16] MEDS: RESP: IPRATROPIUM 0.5 MG/2.5 ML NEB NEB SCH ×3 (09:13→19:50)
--- NOTE | 2016-01-16 12:41 | RADRPT ---
EXAM DATE/TIME: 01/16/2016 10:51 [facility] COMPARISON: CT BRAIN W/O CONTRAST, December 21, 2015, 6:01. INDICATIONS : Altered mental status, decreased alertness. RADIATION DOSE: 56.35 CTDIvol (mGy) MEDICAL HISTORY : Cerebrovascular disease. Diabetes, posterior brain tumor, lymphoma SURGICAL HISTORY : None. ENCOUNTER: Subsequent ACUITY: 1 month PAIN SCALE: Non-responsive LOCATION: chest TECHNIQUE: Multiple contiguous axial images were obtained of the head. Using automated exposure control and adj ustment of the mA and/or kV according to patient size, radiation dose was kept as low as reasonably a chievable to obtain optimal diagnostic quality images. FINDINGS: The areas of decreased density bilateral occipital lobes remote and chronic on the right and new on t he left and representing nonhemorrhagic strokes are appreciated. There is extensive vascular calcific ations particularly at the vertebral arteries at the foramen and minimally internal carotids and the siphon. The new finding is that of extensive low density in the brainstem colin primarily on the rig ht is extending to the left and into the right middle cerebellar peduncle. This is consistent with br ainstem infarct. CONCLUSION: No extensive low density in the brainstem colin more prominent in the right the left extending into th e right middle cerebellar peduncle consistent with brainstem infarct nonhemorrhagic acute Wellington West MD on January 16, 2016 at 12:34 Board Certified Radiologist. This report was verified electronically.
--- NOTE | 2016-01-16 14:53 | HHI.HCPN ---
Reason for visit a. To assist with evaluation and management of symptoms including: dyspnea, encephalopathy, depression b. To assist medical decision maker(s) with: better understanding of current medical conditions; weighing benefits/burdens of medical treatment options; making medical treatment decisions. Subjective/Interval History Patient seen today to follow-up with family RE additional questions about antidepressant, PT etc. Febrile, tMax 101.[address] head, no significant changes. D/w medical attending. D/w Dr Brandon pulmonology family prior request to involve Dr Taylor, he will notify Dr Taylor. Neurology reconsulted. ID consulted for low grade fevers, repeat BC obtained. Patient tolerating tube feeding, having bowel movements. Urine output adequate. INR within therapeutic range. Patient seen in room, ex-, mother,sister. Discussed with them condition, prognosis, recent diagnostics,Celexa--- ex after further discussion w children, other family members, indicates they wish to not given antidepressant. (This was d/c earlier prior to visit per VM request and after discussing w med attending) . They would like to monitor him for tearfulness/ anxiety. Again review prognosis, risk for infections/complications. Discuss Dr Brandon to notify Dr Taylor. 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 Family cont to provide PROM to pt. Exwife would like to provide pt with oral care, she requests permission , advise this would be Ok, pending pt not getting large amts of water which he could aspirate. She asks if she would be permitted to provide tracheal sx for him, rec. would need to check RE nursing/policy. D/w primary RN, pt family should not provide sx as could cause additional problems/risks. Relay to exwife. All questions answered. They have palliative contact information. History brought forward from initial consult by Rita MOCTEZUMA on 01/10/16: This 59-year-old patient was admitted on 12/21/15 via the ED for facial drooping. ED physician notes that patient and patients are poor historians, EMS reported the could not provide good timelines to them. Patient also reported headache, difficulty ambulating. He had known history of recent findings of mass in the brain. During ED course had deterioration of clinical condition and able to protect his airway, unable to follow commands patient was intubated and CT brain obtained. He was admitted for further evaluation and management to the ICU. Hands Assembler was consulted and following patient. Pathology on recent brain biopsy (12/13) still pending. CLINICAL/HOSPITAL COURSE: * CT brain= no focal or acute intracranial hemorrhage. New area decreased density in left occipital lobe suggestive of recent nonhemorrhagic infarct, decreased density in previously noted right occipital lobe has increased in size * Brain MRI = new area of restricted diffusion within left occipital lobe suggesting acute infarct. Interval enlargement of the area of restricted diffusion within right occipital lobe suggesting probable extension of right occipital and started on. Underlying enhancement of right occipital lobe is slightly worse than the previous exam and nonspecific. Biopsy has been performed and results are pending. Tiny focal area of restricted diffusion within right cerebellar hemisphere consistent with probable acute/subacute lacunar infarct. Signal abnormality in the SWI sequence within the right occipital lobe suggesting some hemorrhage in biopsy bed. No midline shift or extra-axial fluid collections. * CXR= no acute cardiopulmonary disease * -Neurology consulted, ordered MRA to look for vertebrobasilar stenosis, echo done last admission notes normal EF with normal valves and normal left atrial size. EEG also ordered. MR venogram ordered. EEG= abnormal study consistent with her encephalopathy. MRV indicated basilar occlusion; neurology notes discussion with family regarding chemical code only, also notes discussion regarding risks associated with the anticoagulates, was discussed with radiologist/INR recommended not helpful to extract basilar clot as this could result in patient's . It was felt the colin was infarcted. Further neurology notes "he could be locked in", is acting as if colin is infarcted. * Oncology known to patient also consulted for non-Hodgkin's lymphoma: Dr Whyte documents that there was no evidence of residual or recurrent disease on CT scans of chest, abdomen, pelvis done in October and November of this year. Pathology was still pending, had been sent to [facility] for second opinion. No acute oncology interventions recommended at that time, will follow. * 12/23 - 12/25 febrile. CPAP trials. Remains on vent off of sedation. Withdrawing to pain. Repeat brain MRI= evolving brainstem stroke. Neurology notes extensive discussion with family, notes discussion the patient is locked in but fully aware, family would like to see help patient does over the next 3 months. 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 Biopsy brain lesion appears consistent with acute infarct no lymphoma. Family desires ongoing aggressive measures, will proceed with tracheostomy. Sputum culture positive sensitive Klebsiella. * 01/01 tracheostomy, PEG tube placement * 01/04 trach collar trials, alternating with T piece. Low-grade fever 100.5. CXR = mild bibasilar atelectasis. Neuro: Spontaneously opening eyes, looking up / down, directionally to commands. * 01/07 still "locked in " , transferred off ICU to regular floor. * 01/08 pulmonology consulted-not CXR clear no evidence of pulmonary infection. He may have some underlying COPD recommends continued aerosol treatments. Further notes long discussion with family at bedside regarding tracheostomy, long-term use of trach until patient able to protect his airway, no further recommendations. Palliative care consulted to assist with clarification of goals of treatment. Advance Directives Living Will: Never completed Health Care Surrogate: Never completed Objective Vital Signs Date Time Temp Pulse Resp B/P Pulse Ox O2 Delivery O2 Flow Rate FiO2 01/16/16 12:00 99.7 115 18 138/76 97 01/16/16 09:15 92 T-piece 6.00 40 01/16/16 08:00 100.3 113 21 127/77 96 01/16/16 06:50 101.1 118 22 125/67 96 01/16/16 04:00 18 01/16/16 00:43 99.8 118 18 134/64 95 01/15/16 21:21 93 T-piece 10.00 98 01/15/16 21:02 94 T-piece 6.00 50 01/15/16 20:56 99.5 114 20 108/79 96 01/15/16 20:00 114 01/15/16 16:00 96.9 111 22 160/94 97 Physical Exam CONSTITUTIONAL/GENERAL: This is an adequately nourished patient,asleep, no apparent distress TUBES/LINES/DRAINS: PIV upper extremity, Arevalo catheter, PEG tube, tracheostomy , SCDs SKIN: No jaundice, rashes, or lesions.No wounds seen anteriorly. Skin temperature appropriate. Not diaphoretic. EYES: eyes closed, sleeping CARDIOVASCULAR: Regular rate and rhythm without murmurs. No JVD. Peripheral pulses symmetric. No peripheral edema. RESPIRATORY/CHEST: Symmetric, unlabored respirations. T piece, 20% FiO2. Clear to auscultation. Breath sounds equal bilaterally. GASTROINTESTINAL: Abdomen soft, non-tender, nondistended. ?slight firmness mid lower/right abd. No palpable masses. Bowel sounds normoactive.TF infusing to PEG MUSCULOSKELETAL: Extremities without clubbing, cyanosis, or edema. No joint effusion noted. No mottling or clubbing. NEUROLOGICAL: Asleep during my exam, does not arouse to stimuli. PSYCHIATRIC: Difficult to fully assess due to clinical condition. no apparent hallucinations or other psychotic thought process. Diagnostic Tests Laboratory Laboratory Tests Test 01/14/16 01/14/16 01/15/16 01/16/16 04:29 22:30 06:24 07:10 Prothrombin Time 17.5 SEC 18.1 SEC 23.2 SEC (9.8-11.4) (9.8-11.4) (9.8-11.4) Prothromb Time International 1.6 RATIO 1.7 RATIO 2.1 RATIO Ratio Urine Color YELLOW (YELLW/STRAW) Urine Turbidity CLEAR (CLEAR) Urine pH 5.0 (5.0-8.5) Urine Specific [place] 1.013 (1.002-1.035) Urine Protein NEG mg/dL (NEG-TRACE) Urine Glucose (UA) NEG mg/dL (NEG) Urine Ketones NEG mg/dL (NEG) Urine Occult Blood NEG (NEG) Urine Nitrite NEG (NEG) Urine Bilirubin NEG (NEG) Urine Urobilinogen LESS THAN 2.0 MG/DL (LESS THAN 2.0) Urine Leukocyte Esterase NEG (NEG) Urine RBC 3 /hpf (0-3) Urine WBC 4 /hpf (0-5) Urine Amorphous Sediment FEW Urine Bacteria RARE /hpf (NONE) Urine Hyaline Casts 4 /lpf (RARE) Microscopic Urinalysis Comment CATH-CULT NOT IND White Blood Count 9.4 TH/MM3 (4.0-11.0) Red Blood Count 3.83 MIL/MM3 (4.50-5.90) Hemoglobin 9.8 GM/DL (13.0-17.0) Hematocrit 31.8 % (39.0-51.0) Mean Corpuscular Volume 83.1 FL (80.0-100.0) Mean Corpuscular Hemoglobin 25.7 PG (27.0-34.0) Mean Corpuscular Hemoglobin 31.0 % Concent (32.0-36.0) Red Cell Distribution Width 15.3 % (11.6-17.2) Platelet Count 284 TH/MM3 (150-450) Mean Platelet Volume 9.5 FL (7.0-11.0) Neutrophils (%) (Auto) 71.9 % (16.0-70.0) Lymphocytes (%) (Auto) 17.0 % (9.0-44.0) Monocytes (%) (Auto) 7.9 % (0.0-8.0) Eosinophils (%) (Auto) 2.5 % (0.0-4.0) Basophils (%) (Auto) 0.7 % (0.0-2.0) Neutrophils # (Auto) 6.8 TH/MM3 (1.8-7.7) Lymphocytes # (Auto) 1.6 TH/MM3 (1.0-4.8) Monocytes # (Auto) 0.7 TH/MM3 (0-0.9) Eosinophils # (Auto) 0.2 TH/MM3 (0-0.4) Basophils # (Auto) 0.1 TH/MM3 (0-0.2) CBC Comment DIFF FINAL Differential Comment Result Diagram: 01/16/16 0710 Microbiology Microbiology Date/Time Procedure Status Source Growth 01/16/16 12:42 Aerobic Blood Culture Received Blood Peripheral Pending 01/16/16 12:42 Anaerobic Blood Culture Received Blood Peripheral Pending 01/16/16 12:48 Aerobic Blood Culture Received Blood Peripheral Pending 01/16/16 12:48 Anaerobic Blood Culture Received Blood Peripheral Pending Imaging Last Impressions Head CT 01/16/16 0000 Signed Impressions: Service Date/Time: Saturday, January 16, 2016 10:51 - CONCLUSION: No extensive low density in the brainstem colin more prominent in the right the left extending into the right middle cerebellar peduncle consistent with brainstem infarct nonhemorrhagic acute Wellington West MD Chest X-Ray 01/15/16 0000 Signed Impressions: Service Date/Time: Friday, January 15, 2016 12:09 - CONCLUSION: Underinflation with atelectasis at the lung bases. Otherwise, no acute cardiopulmonary abnormality is visualized. Glen Gordon MD Abdomen X-Ray 01/14/16 0000 Signed Impressions: Service Date/Time: Thursday, January 14, 2016 10:19 - CONCLUSION: Moderate stool; otherwise, negative. 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 No evidence of carotid stenosis. Glen Zamora MD Head Magnetic Resonance Angiography 12/22/15 1445 Signed Impressions: Service Date/Time: Tuesday, December 22, 2015 09:22 - CONCLUSION: 1. 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 2. Anterior circulation remains patent without aneurysmal disease. Bobby Gray MD Head/Brain Mag Res Venography 12/22/15 0000 Signed Impressions: Service Date/Time: Tuesday, December 22, 2015 09:22 - CONCLUSION: Normal MRV. Jonel Jones Jr., MD Procedures * 01/01 tracheostomy, PEG tube placement . 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; EEG indicates encephalopathy, neuro following patient felt to be in a "locked-in "state (2) Non-Hodgkin lymphoma Comment: -In remission status post chemotherapy completed May 2015 (3) Acute respiratory failure Comment: Pulmonology following, medical management (4) A-fib (5) Status post stereotactic brain biopsy (6) Brain lesion Comment: Status post biopsy November 2015; pathology consistent with acute infarct without evidence of lymphoma (7) DM (diabetes mellitus) Symptom Scale: (1) Dysphagia Comment: Status post significant CVA, has had PEG tube placed (2) Dyspnea Comment: Respiratory failure secondary to CVA, status post tracheostomy, pulmonary following (3) Encephalopathy Comment: Significant CVA, "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 Albumin 2.4. (5) Depression Comment: At risk for related to "locked in status", communication difficulties , situational, but would likely benefit from anti-depressant Pertinent Non-Medical Issues * Psychosocial:Mr. Flores is originally from [place]. He moved to the [place] around 35 years ago, first to [place] and later to [place]. He is not legally but remains with his ex-, Leanne. They have been together for 31+ years and have three children together: Leanne, Gerald, and Ginny. Gerald is currently in [facility] for work. Mr. Flores has 2 brothers and 7 sisters. His father is of old age. His mother is alive and was living with the patient. Greatly enjoys his family. Retired. 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 * Spiritual: * Legal:Patient due to clinical condition is currently unable to participate in medical decision making. Not clear if or when he will regain this ability. Family does not believe he has completed advance directives. per [place] Statutes, medical proxy decision making would fall to the majority of adult children, as Mr. Flores is not legally . * Ethical issues impacting care: Important Contacts Leanne, daughter: [phone] Ginny, daughter: [phone] Gerald, son: currently in [facility] for work but has communication with his siblings. Leanne, ex-: [phone] Prognosis This patient has had 20 day hospital course thus far, admitted on 62 for a large brainstem infarct, bilateral occipital infarcts. He has subsequently had ongoing encephalopathy and severe communication limitations, neurology feels he is in a "locked-in "state. He has suffered from respiratory failure likely secondary to significant CVA. Appears he should be able to survive this acute hospitalization, however not clear when or if he will regain ability to communicate, based on current assessments patient will require long-term care placement. He will remain high risk for potential competition/setbacks due to immobile status including infections, DVT etc. . Code Status: Full Code Plan * GOALS: Very aggressive. See family conference component on initial consult for additional detail. Meeting In summary: Initially they had many questions regarding admission and biopsy which occurred in November, they ask about differentials and decision making leading to the biopsy, and have many concerns regarding that clinical course--advised that I could not speak to any of those questions or processes as I was not involved in his care and decision making at that time, recommend them to direct those specific questions to those initial providers which provided those services. Otherwise review of conditions, goals as detailed in "issues discussed". Family expresses that Mr. Flores did remarkably well following his chemotherapy for lymphoma just last year, and that he had been doing fine until recent issue in November. They endorsed that he is a fighter, that he is a very optimistic person, and that they are certain he is "in there "and would want to continue fighting for whatever recovery he might have." They have many questions regarding rehabilitation services and placement as well as financial coverage for these services, advised that case management could assist them with the various applications which already in process, but that any placement would depend on funding, or alternatively coleman placement which is up to any individual institution. They would like to maximize PT/OT/ST ongoing while here in the hospital. They also request courtesy consult of to follow him for pulmonary as he is known to the family through their scientology. * 01/16/16 goals remain aggressive. Family would not like patient on any scheduled opiates or other sedating medications, family requested D/c of antidepressant (Done) . Family has requested pulmonology Dr Taylor to follow pt as he is known to them through their scientology, d/w Dr Brandon, he will notify Dr Taylor * CODE STATUSfull code * Symptoms: == Dysphagia--Status post significant CVA, has had PEG tube placed == Dyspnea --Respiratory failure secondary to CVA, status post tracheostomy, pulmonary following; currently no apparent distress/ CXR bibasilar atelectasis, unchanged. 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 Albumin 2.4.; tolerating TF == depression/anxiety -- At risk for related to "locked in status", communication difficulties, situational, but would likely benefit from anti- depressant. Family reports tearful at times when they talk to him. d/w medical attending, celexa 20mg QD had been added-- d/c today per family request. * Palliative care will continue to follow during hospital course as condition evolves, to assist patient/decision-maker with understanding of medical conditions, weighing benefits/burdens of treatment options, for clarification of goals of treatment. Additionally will assist with any symptoms of palliative concern . Time Spent Total Floor Time (mins): 30 >50% Counseling/Coord of Care: Yes (d/w medical attending, pulmonology, primary RN ) Attestation To help prompt me to consider important information that might be impacting today's encounter and assessment, information from prior notes written by myself or my colleagues may have been "brought forward" into today's note. My signature on this note, however, is an attestation that I personally performed the exam, history, and/or decision-making noted today, and, unless otherwise indicated, the interactions with patient, family, and staff as well as the review of records all occurred today. I also attest that the listed assessment and stated plan reflect my best clinical judgment today based on the combination of historical information, prior notes, and today's exam/ interactions. When time spent is documented, it refers only to time spent today by the signer, or if indicated, combined time spent today by collaborating physician/nurse practitioner. Tiara Colin Jan 16, 2016 14:53
--- NOTE | 2016-01-16 15:56 | HHI.PR ---
Subjective Remarks s:change in mental status today ?due to celexa per his also worried about infection and sputum. had ct brain no bleed c/w brain stem stroke. Objective Vital Signs Date Time Temp Pulse Resp B/P Pulse Ox O2 Delivery O2 Flow Rate FiO2 01/16/16 12:00 99.7 115 18 138/76 97 01/16/16 09:15 92 T-piece 6.00 40 01/16/16 08:00 100.3 113 21 127/77 96 01/16/16 06:50 101.1 118 22 125/67 96 01/16/16 04:00 18 01/16/16 00:43 99.8 118 18 134/64 95 01/15/16 21:21 93 T-piece 10.00 98 01/15/16 21:02 94 T-piece 6.00 50 01/15/16 20:56 99.5 114 20 108/79 96 01/15/16 20:00 114 01/15/16 16:00 96.9 111 22 160/94 97 I/O 01/15/16 01/15/16 01/15/16 01/16/16 01/16/16 01/16/16 07:00 15:00 23:00 07:00 15:00 23:00 Intake Total 385 ml 1334 ml Output Total 300 ml Balance 385 ml 1334 ml -300 ml Tube Feeding 385 ml 1334 ml Output Urine Total 300 ml # Voids 2 # Bowel Movements 1 0 Result Diagram: 01/16/16 0710 Other Results inr 2.1 hgb 9.8 gluc 159 ua neg bld cx pending. Objective Remarks sleepy arouses opens eyes tracks more to he left opens and closes eyes on command will not stick tongue out keeps mouth open has trach no motor movement. 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 Mery Farfan MD Jan 16, 2016 15:56
[2016-01-16] MEDS: WARFARIN SOD 4 MG TAB PO SCH (16:00)
--- NOTE | 2016-01-16 18:17 | MB ---
cc: NICKY AU MD, FRANKLYN F. MD DATE OF CONSULTATION: 01/16/[address] Au. REASON FOR CONSULTATION Fever. HISTORY OF PRESENT ILLNESS This 60-year-old male was admitted to the hospital on December 20 with altered mental status. He was eventually found to have a CVA. He was recently diagnosed with stage III non-Hodgkin's lymphoma about a year ago. The patient was intubated and he underwent tracheostomy and feeding tube placement. He was diagnosed with an acute stroke and is followed by Neurology. The patient developed an elevated temperature earlier today of 101.1 degrees axillary. Since admission he has had fluctuating temperatures with periods of high temperatures interspersed with normal temperature. Previous culture grew out Klebsiella pneumoniae in the sputum on 12/27 and blood culture had Staph stimulans in one of four bottles on 12/22, and the cultures after that were negative including sputum culture and urine cultures. A urinalysis was sent on 01/13 and was unremarkable and a culture was not taken. Blood cultures were taken earlier today. The last sputum culture was on 01/04 and had normal bharti. The patient opens his eyes but does not do any other meaningful response. His is at the bedside. She thinks that he is a little better than yesterday from the mental status standpoint. The white blood cell count is normal. Since the patient cannot respond, information is obtained from the medical record and also some information was obtained from his . PAST MEDICAL HISTORY 1. Hypertension. 2. Stage III non-Hodgkin's lymphoma. 3. Diabetes mellitus. 4. Paroxysmal atrial fibrillation. 5. Brain biopsy in Nov, 2015. 6. History of left arm surgery. ALLERGIES NO KNOWN DRUG ALLERGIES. MEDICATIONS 1. Insulin. 2. Senna 3. Coumadin. 4. Lopressor. 5. Inhaled Atrovent. 6. Inhaled Albuterol. 7. Zantac. 8. Lactinex. 9. Keppra. SOCIAL HISTORY . Positive tobacco use. No alcohol use. No illicit drugs. FAMILY HISTORY Unable to obtain. REVIEW OF SYSTEMS Unable to obtain. PHYSICAL EXAMINATION GENERAL: This is a well-developed male who is in no acute distress. VITAL SIGNS: Temperature 99.7, BP 138/76, respirations 18, heart rate 115. HEENT: Unable to fully assess. The sclerae are nonicteric. No icterus. Oropharynx - moist mucosa visible. NECK: Supple without adenopathy. LUNGS: Diminished breath sounds but mostly clear. HEART: Regular rate and rhythm without murmurs, rubs or gallops. ABDOMEN: Bowel sounds present, soft, no tenderness appreciated. RECTAL: Not performed. EXTREMITIES: No clubbing, cyanosis or edema. NEUROLOGIC: Unable to assess. SKIN: No rash. LABORATORY DATA WBC 9.4, platelets 284, 71% neutrophils, hemoglobin 9.8, creatinine 0.63, BUN 22. IMAGING Chest x-ray reveals possible atelectasis at the lung bases. CT scan of the head shows a brainstem infarct. IMPRESSION 1. Fever. Questionable etiology. Possible sources are the lung, bacteremia or central fever in a patient with normal white blood cell count. 2. CVA. 3. Post tracheostomy. RECOMMENDATIONS 1. Obtain a sputum culture. 2. Monitor blood cultures. 3. Withhold antibiotics for now and follow up on the cultures. Thank you this consultation. The patient's progress will be monitored and further recommendations will be given on follow-up if indicated. Carlos Liu MD FD/MILVIA /4:19 PM /5:44 PM
--- NOTE | 2016-01-16 21:00 | RADRPT ---
EXAM DATE/TIME: 01/16/2016 20:05 [facility] COMPARISON: MRI BRAIN W & W/O CONTRAST, December 21, 2015, 10:00. INDICATIONS : CVA. CVA, AMS, HX BRAIN LESIONS CONTRAST: 18 cc Omniscan (gadodiamide) IV MEDICAL HISTORY : Hypertension. Lymphoma. Diabetes mellitus type 2. SURGICAL HISTORY : Elbow ENCOUNTER: Subsequent ACUITY: 1 month PAIN SCORE: Nonresponsive. LOCATION: cranial TECHNIQUE: Multiplanar, multisequence MRI of the brain was performed both prior to and following the administrat ion of paramagnetic contrast. FINDINGS: High flair abnormality in seen within both occipital lobes from recent infarctions. There is abnormal enhancement in these regions. Lacunar infarct in left cerebellum seen. No flair abnormalities seen w ithin the colin bilaterally but greater on the right. Minimal restricted diffusion on the right. This is likely related to acute infarction as there is signal void on ADC mapping. There is abnormal enhan cement involving the right colin. The ventricles are normal for age. No evidence of midline shift. Doshi sceptibility artifact again seen in the right occipital lobe. No extraaxial fluid collections are se en. The pituitary gland and suprasellar cistern are normal in configuration. CONCLUSION: Recent infarctions in both occipital lobes and left cerebellum. High flair abnormality within the ivy s but greater on the right where there is enhancement. This is likely related to progressive acute is chemic changes. Mikie Vargas MD on January 16, 2016 at 20:49 Board Certified Radiologist. This report was verified electronically.
--- NOTE | 2016-01-16 21:05 | RADRPT ---
EXAM DATE/TIME: 01/16/2016 20:05 [facility] COMPARISON: MRA BRAIN W/O CONTRAST, December 22, 2015, 9:22. INDICATIONS : CVA. Brain Lesions, AMS, CVA MEDICAL HISTORY : Hypertension. Lymphoma. Diabetes mellitus type 2. SURGICAL HISTORY : Elbow. ENCOUNTER: Subsequent ACUITY: 1 month PAIN SCORE: Nonresponsive. LOCATION: cranial Please note a normal MRA of the brain does not entirely exclude the possibility of a small aneurysm, nor the possibility of distal intracranial vessel disease. TECHNIQUE: 3D time of flight MRA was performed. Source images, multiplanar STS MIP, and 3D volum e MIP reconstructions were reviewed. FINDINGS: There is excellent visualization of the anterior circulation. No stenosis or aneurysm. Distal interna l carotid arteries are normal in caliber. There is occlusion of the proximal basilar artery again seen. Vertebral arteries appear patent. There is filling of the more distal basilar artery and proximal portions of both posterior cerebral arteri es greater on the left. Only the proximal portions of the posterior cerebral arteries are visualized. There is some moderate narrowing at the distal right vertebral artery. 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 Anterior circulation remains intact. Mikie Vargas MD on January 16, 2016 at 20:57 Board Certified Radiologist. This report was verified electronically.
[2016-01-16] MEDS: INSULIN DETEMIR 100 UNITS/ML VIAL SQ SCH (22:09)
[2016-01-17] VITALS (9 sets, daily range): BP systolic 115–141; BP diastolic 63–78; PULSE 100–121; RESP 18–22; TEMP 95.6–101.4; O2SAT 91–98
[2016-01-17 05:31] LABS: BLOOD, URINE SMALL (NEG); GLUCOSE,URINE NEG (NEG); HYALINE CAST, URINE 3 /lpf (RARE); KETONE, URINE NEG (NEG); MUCUS URINE FEW /lpf (OCC); NITRITE,URINE NEG (NEG); PH, URINE 5.5 (5.0-8.5); URINE COLOR YELLOW (YELLW/STRAW)
[2016-01-17 05:32] LABS: COMMENT (UR) CATH-CULT NOT IND; CULTURE IF INDICATED CATH CULTURE NOT IND
[2016-01-17] MEDS: INSULIN ASPART SUPPLEMENTAL SCALE SQ SCH ×5 (06:00→23:47)
[2016-01-17 07:29] LABS: INTERNATIONAL NORMALIZED RATIO 2.2 RATIO; PROTHROMBIN TIME - PATIENT 23.5 SEC (9.8-11.4)
[2016-01-17] MEDS: RANITIDINE HCL SYRUP 150 MG/10 ML UDC PO SCH (07:39)
[2016-01-17] MEDS: SENNOSIDES SYRUP 8.8 MG/5 ML CUP TUBE SCH ×2 (07:39→20:45)
[2016-01-17] MEDS: levETIRAcetam 500 MG/5 ML UDC TUBE SCH ×2 (07:39→20:45)
[2016-01-17] MEDS: NYSTATIN 100,000 U/GM PWD 15 GM BTL TOPICAL SCH ×2 (07:40→20:52)
[2016-01-17] MEDS: METOPROLOL TARTRATE 50 MG TAB GT SCH ×3 (07:40→18:18)
[2016-01-17] MEDS: LACTOBACILLUS ACIDOPHILUS 1 GM PACKET TUBE SCH ×2 (07:41→20:45)
[2016-01-17] MEDS: RESP: IPRATROPIUM 0.5 MG/2.5 ML NEB NEB SCH ×3 (07:57→20:57)
--- NOTE | 2016-01-17 11:22 | HHI.PR ---
Subjective Remarks f/u; CVA/ fever patient in no acute distress.mental status hasn't changed as much.T max 100.7. family at the bedside. d/w the RN; jessica had to placed in last night due to urinary retention- otherwise no other acute issues reported. Objective Vitals Vital Signs Date Time Temp Pulse Resp B/P Pulse Ox O2 Delivery O2 Flow Rate FiO2 01/17/16 08:10 99.4 111 21 116/63 91 01/17/16 08:02 T-Piece 6.00 40 Humidified 01/17/16 07:59 96 T-piece 6.00 40 01/17/16 05:24 127/69 01/17/16 04:15 100.7 121 18 132/69 93 01/17/16 00:29 99.8 103 19 141/72 93 01/16/16 20:15 99.6 90 17 123/74 94 01/16/16 20:00 T-Piece 40 Humidified 01/16/16 20:00 98 01/16/16 19:50 98 T-piece 40 01/16/16 16:00 98.9 98 19 140/84 97 01/16/16 12:00 99.7 115 18 138/76 97 I/O 01/16/16 01/16/16 01/16/16 01/17/16 01/17/16 01/17/16 06:59 14:59 22:59 06:59 14:59 22:59 Intake Total 1659 ml 582 ml Output Total 300 ml 1700 ml Balance -300 ml 1659 ml -1118 ml Intake Oral 580 ml 0 ml IV Total 0 ml 0 ml Tube Feeding 919 ml 442 ml Other 160 ml 140 ml Output Urine Total 300 ml 1700 ml # Voids 4 2 3 # Bowel Movements 0 2 1 Result Diagram: 01/16/16 0710 Imaging Last Impressions Head Magnetic Resonance Angiography 01/16/16 0000 Signed Impressions: Service Date/Time: Saturday, January 16, 2016 20:05 - CONCLUSION: 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 Anterior circulation remains intact. Mikie Vargas MD Head CT 01/16/16 0000 Signed Impressions: Service Date/Time: Saturday, January 16, 2016 10:51 - CONCLUSION: No extensive low density in the brainstem colin more prominent in the right the left extending into the right middle cerebellar peduncle consistent with brainstem infarct nonhemorrhagic acute Wellington West MD Brain MRI 01/16/16 0000 Signed Impressions: Service Date/Time: Saturday, January 16, 2016 20:05 - CONCLUSION: Recent infarctions in both occipital lobes and left cerebellum. High flair abnormality within the colin but greater on the right where there is enhancement. This is likely related to progressive acute ischemic changes. Mikie Vargas MD Chest X-Ray 01/15/16 0000 Signed Impressions: Service Date/Time: Friday, January 15, 2016 12:09 - CONCLUSION: Underinflation with atelectasis at the lung bases. Otherwise, no acute cardiopulmonary abnormality is visualized. Glen Gordon MD Abdomen X-Ray 01/14/16 0000 Signed Impressions: Service Date/Time: Thursday, January 14, 2016 10:19 - CONCLUSION: Moderate stool; otherwise, negative. 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 No evidence of carotid stenosis. Glen Zamora MD Head/Brain Mag Res Venography 12/22/15 0000 Signed Impressions: Service Date/Time: Tuesday, December 22, 2015 09:22 - CONCLUSION: Normal MRV. Jonel Jones Jr., MD Objective Remarks GENERAL: on Trach- in no apparent distress. CARDIOVASCULAR: Regular rate and regular rhythm without murmurs, gallops, or rubs. RESPIRATORY: Clear to auscultation. Breath sounds equal bilaterally. No wheezes , rales, or rhonchi. GASTROINTESTINAL: Abdomen soft, non-tender,distended. hypoactive bowel sounds-PEG in place MUSCULOSKELETAL: Extremities without clubbing, cyanosis, or edema. NEURO: doesn't seem as alert as yesterday Procedures PEG and trach Medications and IVs Current Medications IV Flush (NS Flush) 2 ml UNSCH PRN IVF FLUSH AFTER USING IV ACCESS Last administered on 01/15/16at 09:02; Start 12/21/15 at 06:00 Ondansetron HCl (Zofran Inj) 4 mg STK-MED ONCE .ROUTE ; Start 12/21/15 at 06:22; Stop 12/21/15 at 06:23; Status DC Ondansetron HCl (Zofran Inj) 4 mg ONCE ONCE IV PUSH Last administered on at 06:43; Start 12/21/15 at 06:30; Stop 12/21/15 at 06:31; Status DC Diltiazem HCl 20 mg 20 mg ONCE ONCE IV Last administered on 12/21/15at 06:42; Start 12/21/15 at 06:30; Stop 12/21/15 at 06:31; Status DC Diltiazem HCl/ Sodium Chloride (Cardizem Inj/NS Inj) 125 ml @ 0 mls/hr TITRATE IV Last administered on 12/21/15at 06:47; Start 12/21/15 at 06:30; Stop 12/21/15 at 13:00; Status DC Acetaminophen (Tylenol) 650 mg ONCE ONCE PO ; Start 12/21/15 at 06:45; Stop 12/20 at 06:46; Status DC Lorazepam (Ativan Inj) 1 mg ONCE ONCE IV PUSH Last administered on 12/21/15at 07 :22; Start 12/21/15 at 07:15; Stop 12/21/15 at 07:16; Status DC Etomidate (Amidate Inj) 40 mg STK-MED ONCE .ROUTE Last administered on at 08:17; Start 12/21/15 at 07:37; Stop 12/21/15 at 07:38; Status DC Succinylcholine Chloride 200 mg 200 mg STK-MED ONCE .ROUTE Last administered on 12/21/15at 08:18; Start 12/21/15 at 07:37; Stop 12/21/15 at 07:38; Status DC Propofol (Diprivan 1000 Mg/100ml Inj) 100 ml @ As Directed STK-MED ONCE .ROUTE Last administered on 12/21/15at 08:19; Start 12/21/15 at 07:46; Stop 12/21/15 at 07:47; Status DC Propofol (Diprivan 1000 Mg/100ml Inj) search Sets for Drip. NOW PRN IV SEDATION Last administered on 12/22/15at 06:25; Start 12/21/15 at 08:30; Stop 12/28 at 15:43; Status DC Gadodiamide (Omniscan Pf Inj) 18 ml STK-MED ONCE IV Last administered on at 10:11; Start 12/21/15 at 10:11; Stop 12/21/15 at 10:12; Status DC Pantoprazole Sodium (Protonix Inj) 40 mg DAILY IV Last administered on at 07:39; Start 12/21/15 at 13:00; Stop 01/03/16 at 10:10; Status DC Albuterol/ Ipratropium (Duoneb Neb) 1 ampule Q6HR NEB INH Last administered on 12/25/15at 07:51; Start 12/21/15 at 13:00; Stop 12/25/15 at 13:00; Status DC Miscellaneous Information 1 [id number] Last administered on 12/21/15at 13:00; Start 12/21/15 at 13:00; Stop 01/12/16 at 11:47; Status DC Chlorhexidine Gluconate (Chlorhexidine 2% Cloth) 3 pack Taper DAILY@04 TOP Last administered on 01/11/16at 04:10; Start 12/22/15 at 04:00; Stop 01/12/16 at 11:47; Status DC Chlorhexidine Gluconate 3 pack 3 pack UNSCH PRN TOP HYGIENIC CARE; Start at 13:00; Stop 01/12/16 at 11:47; Status DC Sodium Chloride (NS 1000 ml Inj) 1,000 ml @ 75 mls/hr [id number] IV Last administered on 12/22/15at 17:00; Start 12/21/15 at 13:00; Stop 12/22/15 at 19:01; Status DC Dextrose (D50w (Vial) Inj) 25 ml UNSCH PRN IV PUSH HYPOGLYCEMIA-SEE COMMENTS; Start 12/21/15 at 13:00 Glucagon (Glucagon Inj) 1 mg UNSCH PRN OTHER HYPOGLYCEMIA-SEE COMMENTS; Start 12/21/15 at 13:00 Insulin Human Regular (NovoLIN R SUPPLEMENTAL SCALE) 1 Q6H SQ Last administered on 01/04/16at 06:31; Start 12/21/15 at 13:00; Stop 01/04/16 at 10:05 ; Status DC Levetriacetam (Keppra) 500 mg Q12HR PO Last administered on 12/27/15at 09:00; Start 12/21/15 at 13:45; Stop 12/27/15 at 09:44; Status DC Heparin Sodium (Porcine) (Heparin Inj) 5,000 units BID SQ Last administered on 12/22/15at 20:52; Start 12/21/15 at 21:00; Stop 12/23/15 at 08:32; Status DC Warfarin Sodium (Coumadin) 7.5 mg ONCE ONCE PO Last administered on 12/21/15at 21:43; Start 12/21/15 at 21:00; Stop 12/21/15 at 21:01; Status DC Warfarin Sodium (Coumadin) 5 mg DAILY@16 PO Last administered on 12/23/15at 16:00 ; Start 12/22/15 at 16:00; Stop 12/26/15 at 09:29; Status DC Patient Medication Teaching (Coumadin Booklet) 1 ONCE ONCE XX Last administered on 12/21/15at 20:15; Start 12/21/15 at 20:15; Stop 12/21/15 at 20:16; Status DC Chlorhexidine Gluconate (Peridex 0.12% Liq) 15 ml BID@08,20 MT Last administered on 01/12/16at 08:00; Start 12/22/15 at 20:00; Stop 01/12/16 at 11:47 ; Status DC Gadodiamide 20 ml 20 ml STK-MED ONCE IV Last administered on 12/22/15at 09:55; Start 12/22/15 at 09:55; Stop 12/22/15 at 09:56; Status DC Pharmacy Profile Note ml @ 0 mls/hr UNSCH OTHER ; Start 12/22/15 at 11:00; Stop 12/22/15 at 19:43; Status DC Sodium Chloride 1,000 ml @ 50 mls/hr Q20H IV Last administered on 12/24/15at 20: 02; Start 12/22/15 at 18:44; Stop 12/25/15 at 11:52; Status DC Pharmacy Profile Note (Coumadin Consult Pharmacy) 0 ml @ 0 mls/hr UNSCH OTHER ; Start 12/22/15 at 19:45; Stop 01/04/16 at 12:25; Status DC Acetaminophen 650 mg 650 mg Q6H PRN PO TEMP > 100 Last administered on at 13:24; Start 12/23/15 at 02:45; Stop 12/30/15 at 15:04; Status DC Potassium Chloride 100 ml @ 50 mls/hr Q2H PRN IV For Potassium 2.8 - 3.2 mEq/L ; Start 12/23/15 at 08:30; Stop 01/09/16 at 11:14; Status DC Potassium Chloride (KCl 20 Meq Premix Inj) 100 ml @ 50 mls/hr Q2H PRN IV For Potassium 2.8 - 3.2 mEq/L; Start 12/23/15 at 08:30; Stop 01/09/16 at 11:14; Status DC Potassium Chloride 40 meq 40 meq UNSCH PRN PO/TUBE For Potassium 3.3 - 3.5 mEq/ L; Start 12/23/15 at 08:30; Stop 01/09/16 at 11:14; Status DC Potassium Chloride 100 ml @ 25 mls/hr UNSCH PRN IV For Potassium 3.3 - 3.5 mEq /L; Start 12/23/15 at 08:30; Stop 01/09/16 at 11:14; Status DC Potassium Chloride 100 ml @ 50 mls/hr Q2H PRN IV For Potassium 3.3 - 3.5 mEq/L ; Start 12/23/15 at 08:30; Stop 01/09/16 at 11:14; Status DC Magnesium Sulfate/ Sodium Chloride (Magnesium Sulfate Inj/NS Inj) 100 ml @ 50 mls/hr UNSCH PRN IV For Magnesium 0.9 - 1.1 mg/dL; Start 12/23/15 at 08:30; Stop 01/09/16 at 11:14; Status DC Magnesium Oxide 800 mg 800 mg UNSCH PRN PO For Magnesium 1.2 - 1.6 mg/dL; Start 12/23/15 at 08:30; Stop 01/09/16 at 11:14; Status DC Magnesium Sulfate/ Sodium Chloride (Magnesium Sulfate Inj/NS Inj) 100 ml @ 50 mls/hr UNSCH PRN IV For Magnesium 1.2 - 1.6 mg/dL; Start 12/23/15 at 08:30; Stop 01/09/16 at 11:14; Status DC Potassium Phosphate 2000 mg 2,000 mg Q4H PRN PO For Phosphorus < 2.5 mg/dL; Start 12/23/15 at 08:30; Stop 01/09/16 at 11:14; Status DC Sodium Phosphate/ Sodium Chloride (Sodium Phosphate Inj/NS 250 ml Inj) 250 ml @ 42 mls/hr UNSCH PRN IV For Phosphorus < 2.5 mg/dL; Start 12/23/15 at 08:30; Stop 01/09/16 at 11:14; Status DC Potassium Chloride (KCl 40 Meq/30 ml Liq) 40 meq UNSCH PRN PO/TUBE SEE LABEL COMMENTS; Start 12/23/15 at 08:30; Stop 01/09/16 at 11:14; Status DC Potassium Phosphate 2000 mg 2,000 mg UNSCH PRN PO/TUBE SEE LABEL COMMENTS; Start 12/23/15 at 08:30; Stop 01/09/16 at 11:14; Status DC Potassium Phosphate 30 mmol/ Sodium Chloride 260 ml @ 42 mls/hr UNSCH PRN IV SEE LABEL COMMENTS; Start 12/23/15 at 08:30; Stop 01/09/16 at 11:14; Status DC Sodium Chloride 1,000 ml @ 75 mls/hr [id number] IV ; Start 12/23/15 at 08:30; Stop 12/23/15 at 08:30; Status DC Piperacillin Sod/ Tazobactam Sod 50 ml @ 100 mls/hr Q6H IV Last administered on 12/30/15at 10:02; Start 12/23/15 at 10:00; Stop 12/30/15 at 14:50; Status DC Vancomycin HCl/ Sodium Chloride (Vancomycin Inj/ NS 250 ml Inj) 250 ml @ 250 mls/hr Q12H IV Last administered on 12/29/15at 09:01; Start 12/24/15 at 08:45; Stop 12/29/15 at 15:33; Status DC Warfarin Sodium (Coumadin) 4 mg DAILY@16 PO Last administered on 12/28/15at 16:00 ; Start 12/26/15 at 16:00; Stop 01/04/16 at 12:25; Status DC Levetriacetam (Keppra Liq) 500 mg Q12HR TUBE Last administered on 01/17/16at 07 :39; Start 12/27/15 at 21:00 Docusate Sodium (Colace Liq) 100 mg Q12HR TUBE Last administered on 01/15/16at 09:01; Start 12/27/15 at 21:00; Status Hold Sennosides (Senna Liq) 8.8 mg DAILY TUBE Last administered on 01/15/16at 09:01 ; Start 12/27/15 at 17:00; Stop 01/15/16 at 20:37; Status DC Bisacodyl (Dulcolax Supp) 10 mg ONCE ONCE RECTAL ; Start 12/27/15 at 16:15; Stop 12/27/15 at 16:15; Status DC Albuterol/ Ipratropium (Duoneb Neb) 1 ampule Q4HR NEB PRN NEB RESPIRATORY DISTRESS Last administered on 12/29/15at 12:17; Start 12/27/15 at 22:00; Stop at 08:16; Status DC Bisacodyl (Dulcolax Supp) 10 mg ONCE ONCE RECTAL ; Start 12/28/15 at 12:00; Stop 12/28/15 at 12:01; Status DC Sodium Chloride (Sodium Chloride) 1 gm BID TUBE Last administered on 12/29/15at 09:02; Start 12/28/15 at 21:00; Stop 12/29/15 at 15:43; Status DC Lactulose (Lactulose Liq) 30 ml DAILY TUBE Last administered on 12/29/15at 09:02 ; Start 12/28/15 at 20:30; Stop 12/29/15 at 15:43; Status DC Levofloxacin (Levaquin) 750 mg DAILY@16 TUBE ; Start 12/29/15 at 16:00; Stop 05/05 at 16:00; Status DC Sodium Chloride (Sodium Chloride) 1 gm DAILY TUBE Last administered on at 07:29; Start 12/30/15 at 09:00; Stop 12/31/15 at 14:08; Status DC Water 200 ml 200 ml Q6HR G-TUBE Last administered on 12/31/15at 04:19; Start 06/05 at 14:45; Stop 12/31/15 at 07:31; Status DC Ceftriaxone Sodium/Sodium Chloride (Rocephin Inj/NS Inj) 100 ml @ 200 mls/hr Q12H IV Last administered on 01/03/16at 02:47; Start 12/30/15 at 15:00; Stop at 10:09; Status DC Acetaminophen (Tylenol 650 Mg/ 20 ml Liq) 650 mg Q6H PRN TUBE TEMP >100.4 Last administered on 01/16/16at 02:44; Start 12/30/15 at 15:15 Lactobacillus Acidophilus (Lactinex Pkt) 1 gm BID TUBE Last administered on at 07:41; Start 12/30/15 at 21:00 Enoxaparin Sodium (Lovenox Inj) 90 mg Q12H SQ Last administered on 01/01/16at 21 :57; Start 12/31/15 at 08:00; Stop 01/03/16 at 10:33; Status DC Water (Free Water) 100 ml Q12H G-TUBE ; Start 12/31/15 at 18:00; Stop 12/31/15 at 18:00; Status DC Acetaminophen/ Hydrocodone Bitart ([place] 5-325 Mg) 1 tab Q6H PRN PO PAIN Last administered on 01/16/16at 02:45; Start 12/31/15 at 15:00; Status Hold Fentanyl Citrate (Sublimaze Inj) 25 mcg Q1H PRN IV PUSH BREAKTHROUGH PAIN; Start 12/31/15 at 15:00 Water (Free Water) 200 ml Q8H G-TUBE Last administered on 01/01/16at 17:55; Start 12/31/15 at 18:00; Stop 01/02/16 at 09:56; Status DC Sodium Chloride (Sodium Chloride) 1 gm BID TUBE Last administered on 01/03/16at 07:39; Start 12/31/15 at 21:00; Stop 01/03/16 at 09:08; Status DC Miscellaneous Information Hold Anticoagulation after midni... ONCE ONCE OTHER ; Start 01/01/16 at 10:15; Stop 01/01/16 at 10:29; Status DC Sodium Chloride (NS 1000 ml Inj) 1,000 ml @ 50 mls/hr Q20H IV Last administered on 01/02/16at 12:26; Start 01/01/16 at 18:00; Stop 01/03/16 at 10:07 ; Status DC Midazolam HCl (Versed Inj) 5 mg STK-MED ONCE .ROUTE ; Start 01/02/16 at 12:47; Stop 01/02/16 at 12:48; Status DC Vecuronium [place] (Norcuron 10 Mg Inj) 10 mg STK-MED ONCE .ROUTE ; Start at 12:47; Stop 01/02/16 at 12:48; Status DC Fentanyl Citrate (Sublimaze Inj) 250 mcg ONCE ONCE IV PUSH Last administered on 01/02/16at 15:00; Start 01/02/16 at 15:00; Stop 01/02/16 at 15:01; Status DC Midazolam HCl (Versed Inj) 10 mg ONCE ONCE IV PUSH Last administered on at 15:00; Start 01/02/16 at 15:00; Stop 01/02/16 at 15:01; Status DC Rocuronium [place] (Zemuron Inj) 100 mg BOLUS ONCE IV Last administered on at 15:00; Start 01/02/16 at 15:00; Stop 01/02/16 at 15:01; Status DC Ketamine HCl (Ketalar Inj) 500 mg STK-MED ONCE .ROUTE ; Start 01/02/16 at 14:30 ; Stop 01/02/16 at 14:31; Status DC Propofol 230 mg 230 mg STK-MED ONCE IV ; Start 01/02/16 at 16:51; Stop 01/02/16 at 16:52; Status DC Sodium Chloride (NS 1000 ml Inj) 1,000 ml @ 0 mls/hr Q0M IV ; Start 01/03/16 at 10:15 Ranitidine HCl (Zantac Liq) 150 mg Q12HR PO Last administered on 01/17/16at 07: 39; Start 01/04/16 at 09:00 Enoxaparin Sodium 90 mg 90 mg Q12HR SQ Last administered on 01/11/16at 10:01; Start 01/04/16 at 09:00; Stop 01/11/16 at 12:35; Status DC Sodium Chloride (NS 500 ml Inj) 500 ml @ 0 mls/hr BOLUS ONCE IV Last administered on 01/03/16at 22:57; Start 01/03/16 at 23:00; Stop 01/03/16 at 23:01 ; Status DC Insulin Aspart (NovoLOG SUPPLEMENTAL SCALE) 1 Q6HR SQ Last administered on 01/16at 06:00; Start 01/04/16 at 12:00 Potassium Chloride (KCl 40 Meq/30 ml Liq) 40 meq Q4H NG Last administered on at 16:21; Start 01/04/16 at 13:00; Stop 01/04/16 at 17:01; Status DC Warfarin Sodium 5 mg 5 mg DAILY@1600 PO Last administered on 01/09/16at 17:21; Start 01/04/16 at 16:00; Stop 01/10/16 at 10:06; Status DC Pharmacy Profile Note (Coumadin Consult Pharmacy) 0 ml @ 0 mls/hr UNSCH XX ; Start 01/04/16 at 12:30 Insulin Detemir (Levemir Inj) 10 units Q12HR SQ Last administered on 01/05/16at 08:00; Start 01/04/16 at 21:00; Stop 01/05/16 at 08:42; Status DC Insulin Detemir (Levemir Inj) 5 units NOW ONCE SQ Last administered on at 13:28; Start 01/04/16 at 12:45; Stop 01/04/16 at 12:46; Status DC Albuterol/ Ipratropium (Duoneb Neb) 1 ampule Q4HR NEB PRN NEB dyspnea Last administered on 01/10/16at 08:51; Start 01/07/16 at 08:15 Warfarin Sodium (Coumadin) 7.5 mg ONCE ONCE PO Last administered on 01/07/16at 16:40; Start 01/07/16 at 16:00; Stop 01/07/16 at 16:01; Status DC Nystatin (Mycostatin Powder) 1 applic Q12HR TOPICAL Last administered on at 07:40; Start 01/08/16 at 21:00 Ipratropium [place] (Atrovent Neb) 0.5 mg TID NEB NEB Last administered on at 07:57; Start 01/08/16 at 20:00 Warfarin Sodium (Coumadin) 5 mg DAILY@1600 PO Last administered on 01/11/16at 14 :26; Start 01/11/16 at 16:00; Stop 01/12/16 at 09:45; Status DC Warfarin Sodium (Coumadin) 6 mg ONCE PO Last administered on 01/10/16at 17:10; Start 01/10/16 at 16:00; Stop 01/10/16 at 21:00; Status DC Metoprolol Tartrate (Lopressor) 50 mg Q12HR GT Last administered on 01/11/16at 10:02; Start 01/10/16 at 11:00; Stop 01/11/16 at 12:30; Status DC Metoprolol Tartrate (Lopressor) 50 mg TID GT Last administered on 01/14/16at 08: 24; Start 01/11/16 at 13:00; Stop 01/14/16 at 08:28; Status DC Insulin Detemir (Levemir Inj) 10 units HS SQ Last administered on 01/11/16at 22: 23; Start 01/11/16 at 21:00; Stop 01/12/16 at 11:47; Status DC Warfarin Sodium (Coumadin) 4 mg DAILY@16 PO ; Start 01/12/16 at 16:00; Stop at 16:00; Status DC Insulin Detemir (Levemir Inj) 20 units HS SQ Last administered on 01/13/16at 20: 26; Start 01/12/16 at 21:00; Stop 01/14/16 at 08:28; Status DC Warfarin Sodium (Coumadin) 2 mg DAILY@16 PO Last administered on 01/13/16at 17: 05; Start 01/12/16 at 16:00; Stop 01/14/16 at 11:23; Status DC Insulin Detemir (Levemir Inj) 22 units HS SQ Last administered on 01/14/16at 21: 37; Start 01/14/16 at 21:00; Stop 01/15/16 at 10:06; Status DC Metoprolol Tartrate (Lopressor) 75 mg TID GT Last administered on 01/17/16at 07: 40; Start 01/14/16 at 09:00 Miscellaneous (Pill Splitter) 1 ea UNSCH PRN OTHER SEE LABEL COMMENTS; Start at 08:30 Warfarin Sodium (Coumadin) 4 mg DAILY@1600 PO Last administered on 01/16/16at 16 :00; Start 01/14/16 at 16:00 Patient Medication Teaching (Coumadin Booklet) 1 ONCE ONCE XX ; Start 01/14/16 at 16:00; Stop 01/14/16 at 16:01; Status DC Insulin Detemir (Levemir Inj) 24 units HS SQ Last administered on 01/16/16at 22: 09; Start 01/15/16 at 21:00 Citalopram Hydrobromide (CeleXA) 20 mg DAILY PEG Last administered on at 08:01; Start 01/16/16 at 09:00; Stop 01/16/16 at 09:41; Status DC Sennosides (Senna Liq) 8.8 mg BID TUBE Last administered on 01/17/16at 07:39; Start 01/15/16 at 21:00 Gadodiamide (Omniscan Pf Inj) 18 ml STK-MED ONCE IV ; Start 01/16/16 at 20:40; Stop 01/16/16 at 20:41; Status DC A/P Assessment and Plan A/P (1) CVA (cerebral vascular accident); 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 repeated MRI brain on 01/15 with progressive ischemic changes. Continue Keppra and coumadin neurology was reconsulted. Palliative care following. (2) SIRS ( fever spike 101 and tachycardia)- source?- UA and CXR negative for infection blood cultures and sputum culture pending- ID consult appreciated- continue to monitor temps- antipyretics as needed. (3) Acute respiratory failure Secondary to CVA, Status post tracheostomy. Continue bronchi dilators and pulmonary toilet Duonebs PRN Pulmonary consult appreciated (Dr. Brandon following) (4) A-fib continue lopressor - will monitor and adjust the regimen as needed. continue full anticoagulation with warfarin Echocardiogram completed in November shows preserved EF pharmacy consulted for coumadin dosing. (5) Non-Hodgkin lymphoma s/p brain biopsy on December 13, by Neurosurgery, Dr. Marin - Pathology consistent with acute infarct without evidence of lymphoma Seen by Oncology, Dr. Whyte, who has signed off for current admission as no active oncology issues (6) DM (diabetes mellitus) Patient with a hemoglobin A1c in November of above 7 continue Levemir with sliding scale- will monitor and adjust the regimen as needed. DVT prophylaxis with coumadin. Discharge Planning dc planning to SNF- Medardo Au MD Jan 17, 2016 11:22
[2016-01-17] MEDS: RESP: ALBUTEROL 2.5 MG/IPRATROPIUM 0.5 MG NEB (PRN) NEB (11:37)
[2016-01-17 12:41] LABS: BICARBONATE 28.1 MEQ/L (21.0-32.0); POTASSIUM 4.1 MEQ/L (3.5-5.1)
--- NOTE | 2016-01-17 13:34 | HHI.STRCON ---
Stroke Care Coordination Conf Multidiscplinary Team: PT, OT, ST, Nutrition, Nursing Stroke: Ischemic, Hemorrhagic, Location (Occipital, Brain Stem and Cerebellum; Not a candidate for TPA ) Current Medical Issues: Other (Hx of Brain Lesion) Vital Signs: Stable Level of Consciousness: Lethargic GCS: 4 Respiratory: Trach (28% humidified) VTE Prophylaxis: SCD's, Other (Coumadin) Head of Bed Elevated: Yes Current Abnormal Labs/Tests Laboratory Tests Test 01/17/16 01/17/16 01/17/16 05:00 06:35 11:48 Urine Occult Blood SMALL (NEG) Urine RBC 23 /hpf (0-3) Urine Mucus FEW /lpf (OCC) Prothrombin Time 23.5 SEC (9.8-11.4) Sodium Level 151 MEQ/L (136-145) Chloride Level 112 MEQ/L (98-107) Blood Urea Nitrogen 126 MG/DL (7-18) Creatinine 3.28 MG/DL (0.60-1.30) Estimat Glomerular Filtration 19 ML/MIN (>89) Rate Random Glucose 204 MG/DL (74-106) Statin Therapy: LDL Value : Arevalo # of days (09/18/15) Date of Last Bowel Movement: Jan 17, 2016 Nursing Swallow Assessment: No Nutrition: Tube feeding (TF Glucerna 1.5 @ 55ml/hr; ) PT: PROM OT: ROM (PROM) Assess for Rehab Services: Yes Rehab Assessment Not Completed: Palliative Care DC Plan/CM/SW Ins Concerns/Pay: TBD Recommendations made: Yes (Water flush 250ml q 6 hours) Dg Amaro Jan 17, 2016 13:34
--- NOTE | 2016-01-17 14:39 | HHI.PR ---
Addendum To [facility] Progress Not Reason for addendum: Additonal documentation (BMP resulted. patient with acute kidney injury- lopez in place- will start aggressive IV hydration and monitor I/ O- will consult nephrology and avoid nephrotoxins.) Medardo Au MD Jan 17, 2016 14:39
[2016-01-17] MEDS: WARFARIN SOD 4 MG TAB PO SCH (14:54)
--- NOTE | 2016-01-17 17:10 | HHI.IDPN ---
Note Infectious Disease Note Patient awakens intermittently. No meaningful response. Temp spikes. Acute decline in renal function. Cultures negative. This 60-year-old male was admitted to the hospital on December 20 with altered mental status. He was eventually found to have a CVA. He was recently diagnosed with stage III non-Hodgkin's lymphoma about a year ago. The patient was intubated and he underwent tracheostomy and feeding tube placement. He was diagnosed with an acute stroke and is followed by Neurology. Consult requested for fever. PAST MEDICAL HISTORY 1. Hypertension. 2. Stage III non-Hodgkin's lymphoma. 3. Diabetes mellitus. 4. Paroxysmal atrial fibrillation. 5. Brain biopsy in Nov, 2015. 6. History of left arm surgery. ALLERGIES NO KNOWN DRUG ALLERGIES. MEDICATIONS SOCIAL HISTORY . Positive tobacco use. No alcohol use. No illicit drugs. FAMILY HISTORY Unable to obtain. OBJ: Vital Signs Date Time Temp Pulse Resp B/P Pulse Ox O2 Delivery O2 Flow Rate FiO2 01/17/16 13:06 101.4 100 22 133/72 95 01/17/16 08:10 99.4 111 21 116/63 91 01/17/16 08:02 T-Piece 6.00 40 Humidified 01/17/16 07:59 96 T-piece 6.00 40 01/17/16 05:24 127/69 01/17/16 04:15 100.7 121 18 132/69 93 01/17/16 00:29 99.8 103 19 141/72 93 01/16/16 20:15 99.6 90 17 123/74 94 01/16/16 20:00 T-Piece 40 Humidified 01/16/16 20:00 98 01/16/16 19:50 98 T-piece 40 01/16/16 01/16/16 01/17/16 15:00 23:00 07:00 Intake Total 1659 ml 582 ml Output Total 1700 ml Balance 1659 ml -1118 ml Intake Oral 580 ml 0 ml IV Total 0 ml 0 ml Tube Feeding 919 ml 442 ml Other 160 ml 140 ml Output Urine Total 1700 ml # Voids 4 2 3 # Bowel Movements 2 1 Laboratory Tests Test 01/16/16 07:10 White Blood Count 9.4 TH/MM3 Red Blood Count 3.83 MIL/MM3 Hemoglobin 9.8 GM/DL Hematocrit 31.8 % Mean Corpuscular Volume 83.1 FL Mean Corpuscular Hemoglobin 25.7 PG Mean Corpuscular Hemoglobin 31.0 % Concent Red Cell Distribution Width 15.3 % Platelet Count 284 TH/MM3 Mean Platelet Volume 9.5 FL Neutrophils (%) (Auto) 71.9 % Lymphocytes (%) (Auto) 17.0 % Monocytes (%) (Auto) 7.9 % Eosinophils (%) (Auto) 2.5 % Basophils (%) (Auto) 0.7 % Neutrophils # (Auto) 6.8 TH/MM3 Lymphocytes # (Auto) 1.6 TH/MM3 Monocytes # (Auto) 0.7 TH/MM3 Eosinophils # (Auto) 0.2 TH/MM3 Basophils # (Auto) 0.1 TH/MM3 CBC Comment DIFF FINAL Differential Comment Laboratory Tests Test 01/17/16 11:48 Sodium Level 151 MEQ/L Potassium Level 4.1 MEQ/L Chloride Level 112 MEQ/L Carbon Dioxide Level 28.1 MEQ/L Anion Gap 11 MEQ/L Blood Urea Nitrogen 126 MG/DL Creatinine 3.28 MG/DL Estimat Glomerular Filtration 19 ML/MIN Rate Random Glucose 204 MG/DL Calcium Level 9.4 MG/DL Microbiology Date/Time Procedure Status Source Growth 01/16/16 12:42 Aerobic Blood Culture - Preliminary Resulted Blood Peripheral NO GROWTH IN 1 DAY 01/16/16 12:42 Anaerobic Blood Culture - Preliminary Resulted Blood Peripheral NO GROWTH IN 1 DAY 01/16/16 12:48 Aerobic Blood Culture - Preliminary Resulted Blood Peripheral NO GROWTH IN 1 DAY 01/16/16 12:48 Anaerobic Blood Culture - Preliminary Resulted Blood Peripheral NO GROWTH IN 1 DAY 01/16/16 17:05 Gram Stain - Final Resulted Sputum Endotracheal 01/16/16 17:05 Sputum Culture - Preliminary Resulted Sputum Endotracheal HEAVY GROWTH NORMAL RESPIRATORY ROSEMARIE... 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 Anterior circulation remains intact. Mikie Vargas MD Head CT 01/16/16 0000 Signed Impressions: Service Date/Time: Saturday, January 16, 2016 10:51 - CONCLUSION: No extensive low density in the brainstem colin more prominent in the right the left extending into the right middle cerebellar peduncle consistent with brainstem infarct nonhemorrhagic acute Wellington West MD Brain MRI 01/16/16 0000 Signed Impressions: Service Date/Time: Saturday, January 16, 2016 20:05 - CONCLUSION: Recent infarctions in both occipital lobes and left cerebellum. High flair abnormality within the colin but greater on the right where there is enhancement. This is likely related to progressive acute ischemic changes. Mikie Vargas MD Chest X-Ray 01/15/16 0000 Signed Impressions: Service Date/Time: Friday, January 15, 2016 12:09 - CONCLUSION: Underinflation with atelectasis at the lung bases. Otherwise, no acute cardiopulmonary abnormality is visualized. Glen Gordon MD Abdomen X-Ray 01/14/16 0000 Signed Impressions: Service Date/Time: Thursday, January 14, 2016 10:19 - CONCLUSION: Moderate stool; otherwise, negative. 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 No evidence of carotid stenosis. Glen Zamora MD Head/Brain Mag Res Venography 12/22/15 0000 Signed Impressions: Service Date/Time: Tuesday, December 22, 2015 09:22 - CONCLUSION: Normal MRV. Jonel Jones Jr., MD IMAGING: PHYSICAL EXAMINATION GENERAL: No acute distress. HEENT: Unable to fully assess. The sclerae are nonicteric. No icterus. Oropharynx - moist mucosa visible. NECK: Supple without adenopathy. LUNGS: Diminished breath sounds. HEART: Regular rate and rhythm without murmurs, rubs or gallops. ABDOMEN: Bowel sounds present, soft, no tenderness appreciated. EXTREMITIES: No clubbing, cyanosis or edema. NEUROLOGIC: Unable to assess. SKIN: No rash. IMPRESSION 1. Fever. Questionable etiology. Probable central fever. No evidence of infection. 2. CVA. 3. Post tracheostomy. RECOMMENDATIONS 1. Monitor cultures. 2. Withhold antibiotics for now and follow up on the blood cultures. Carlos Liu MD Jan 17, 2016 17:10
--- NOTE | 2016-01-17 17:28 | PD.CONS ---
[facility] Service Nephrology Consult Requested By Dr. Au Reason for Consult Acute Renal Failure Primary Care Physician Non-Staff History of Present Illness This is a very unfortunate case, a 60 y/o Filipino male who has a PMH of HTN, DM II, paroxysmal A fib, and non Hodgkin lymphoma. He was diagnosed last year, did 6 months of chemotherapy (Rituxan CHOP), and was apparently in remission as of this past July. He had been having spells of AMS with weakness, was admitted 12/06 and had a juan jose hole brain biopsy on 12/16 to evaluate for mets. He was d/c home. On 12/20 he had another episode of AMS with facial droop, sonorous breathing. He was intubated upon arrival to the hospital. Serial imaging revealed multiple CVA's, non hemorrhagic in nature. He has progressively gotten worse functionally. Repeat imaging now showing evolving brainstem CVA with occipital involvement. 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 As of 5 days ago, he was able to open/close and blink eyes to communicate. Recently that function has been declining. He had a trach and PEG placed on 01/01. His labs have been benign, most recently until 01/09. Today labs were rechecked today and abnormal for the following: Na 151, Cr 3.28, BUN 126, GFR 18. We were consulted for renal management. He did not have a lopez catheter until yesterday, the nurse noted an extended period of anuria, placed a catheter and approximately 1700 cc urine was returned. The family at the bedside reports he has had an issue with voiding due from suspected BPH, but he never went in to have it checked. He was also not on IVF, and has been receiving tube feeding continuously. He has been febrile recently with unknown source, all cultures (recent) are negative. No open wounds. Family at the bedside is very involved, and he has been kept in full code status per their request. (Abigail Zhang) Review of Systems ROS Limitations: Clinical Condition, Altered Mental Status, Unresponsive ( Abigail Zhang) Past Family Social History Allergies: Coded Allergies: No Known Allergies (Verified , 12/21/15) Past Medical History Paroxysmal A fib HTN DM II Non Hodgkin Lymphoma Past Surgical History Brain Bx 12/17/15 L arm surgery Trach and PEG 01/01 Reported Medications Prior to hospitalization: Omeprazole (Omeprazole) 20 Mg Tab 20 Mg PO DAILY Phenergan (Promethazine HCl) 25 Mg Tab 12.5 Mg PO Q8HR PRN Decadron 2 mg (Dexamethasone) 2 Mg Tab 1 Tab PO DIRECTED Decrease dose as directed until finish all the meds 2 mg TID for 4 days 2 mg BID for 4 days 2 mg daily for 4 days 2 mg every other days for 8 days Lorazepam 0.5 Mg Tab 0.5 Mg PO Q8HR PRN Habitrol 21 mg/24 Hr Patch (Nicotine) 1 Patch Patch 1 Patch TD DAILY 30 Days Keppra (Levetiracetam) 250 Mg Tab 750 Mg PO BID 30 Days Glucophage 500 mg (Metformin HCl) 500 Mg Tab 500 Mg PO DAILY Lipitor 40 Mg Tab (Atorvastatin Calcium) 40 Mg Tab 40 Mg PO HS Phenergan 25 mg (Promethazine HCl) 25 Mg Tab 12.5 Mg PO Q8HR PRN Vasotec (Enalapril Maleate) 20 Mg Tab 20 Mg PO DAILY Betapace (Sotalol Hcl) 80 Mg Tab 0.5 Tab PO HS Active Ordered Medications Current Medications Medications (Trade) Dose Ordered Sig/Junior Route Start Time Stop Time Status Last Admin (NS Flush) 2 ml UNSCH PRN IVF 12/21/15 06:00 01/15/16 09:02 (D50w (Vial) Inj) 25 ml UNSCH PRN IV PUSH 12/21/15 13:00 (Glucagon Inj) 1 mg UNSCH PRN OTHER 12/21/15 13:00 (Keppra Liq) 500 mg Q12HR TUBE 12/27/15 21:00 01/17/16 07:39 (Colace Liq) 100 mg Q12HR TUBE 12/27/15 21:00 Hold 01/15/16 09:01 (Tylenol 650 Mg/ 20 ml Liq) 650 mg Q6H PRN TUBE 12/30/15 15:15 01/16/16 02:44 (Lactinex Pkt) 1 gm BID TUBE 12/30/15 21:00 01/17/16 07:41 ([place] 5-325 Mg) 1 tab Q6H PRN PO 12/31/15 15:00 Hold 01/16/16 02:45 Fentanyl Citrate 25 mcg 25 mcg Q1H PRN IV PUSH 12/31/15 15:00 (NS 1000 ml Inj) 1,000 ml @ 0 mls/hr Q0M IV 01/03/16 10:15 Insulin Aspart 1 1 Q6HR SQ 01/04/16 12:00 01/17/16 12:08 (Coumadin Consult Pharmacy) 0 ml @ 0 mls/hr UNSCH XX 01/04/16 12:30 (Mycostatin Powder) 1 applic Q12HR TOPICAL 01/08/16 21:00 01/17/16 07:40 (Lopressor) 75 mg TID GT 01/14/16 09:00 01/17/16 12:08 (Pill Splitter) 1 ea UNSCH PRN OTHER 01/14/16 08:30 (Coumadin) 4 mg DAILY@1600 PO 01/14/16 16:00 01/17/16 14:54 (Levemir Inj) 24 units HS SQ 01/15/16 21:00 01/16/16 22:09 Sennosides 8.8 mg 8.8 mg BID TUBE 01/15/16 21:00 01/17/16 07:39 (NS 1000 ml Inj) 1,000 ml @ 125 mls/hr Q8H IV 01/17/16 15:00 01/17/16 15:11 (Zantac Liq) 150 mg Q24H PO 01/18/16 09:00 Family History No hx of renal disease Social History Heavy smoker since the age of 14 years No ETOH or drug use but Ex- is present and very involved They are Filipino, speak Armenian but he understands Spanish 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 Formerly independent in functional capacity Full code, no advanced directives prior to this hospitalization (Abigail Zhang) Physical Exam Vital Signs Vital Signs Date Time Temp Pulse Resp B/P Pulse Ox O2 Delivery O2 Flow Rate FiO2 01/17/16 13:06 101.4 100 22 133/72 95 01/17/16 08:10 99.4 111 21 116/63 91 01/17/16 08:02 T-Piece 6.00 40 Humidified 01/17/16 07:59 96 T-piece 6.00 40 01/17/16 05:24 127/69 01/17/16 04:15 100.7 121 18 132/69 93 01/17/16 00:29 99.8 103 19 141/72 93 01/16/16 20:15 99.6 90 17 123/74 94 01/16/16 20:00 T-Piece 40 Humidified 01/16/16 20:00 98 01/16/16 19:50 98 T-piece 40 Physical Exam Middle to Elderly Filipino male lying bed, motionless Right facial droop Eyes partly open, blinks minimally, corneal reflex intact Trach, no JVD S1/S2, no murmurs, rubs, gallops lungs: MALGORZATA crackles, diminished in bases but difficulty to auscultate due to limited assistance with positioning during exam Abd: soft, no organomegaly lopez in place, no scrotal edema Extremites warm to touch, trace edema, distal pulses 2+, no open wounds or rashes unable to assess Psych Laboratory Laboratory Tests Test 01/17/16 01/17/16 01/17/16 05:00 06:35 11:48 Urine Color YELLOW Urine Turbidity CLEAR Urine pH 5.5 Urine Specific [place] 1.015 Urine Protein NEG Urine Glucose (UA) NEG Urine Ketones NEG Urine Occult Blood SMALL Urine Nitrite NEG Urine Bilirubin NEG Urine Urobilinogen LESS THAN 2.0 Urine Leukocyte Esterase NEG Urine RBC 23 Urine WBC 4 Urine Hyaline Casts 3 Urine Mucus FEW Microscopic Urinalysis Comment CATH-CULT NOT IND Prothrombin Time 23.5 Prothromb Time International 2.2 Ratio Sodium Level 151 Potassium Level 4.1 Chloride Level 112 Carbon Dioxide Level 28.1 Anion Gap 11 Blood Urea Nitrogen 126 Creatinine 3.28 Estimat Glomerular Filtration 19 Rate Random Glucose 204 Calcium Level 9.4 Date/Time Procedure Status Source Growth 01/16/16 17:05 Gram Stain - Final Resulted Sputum Endotracheal 01/16/16 17:05 Sputum Culture - Preliminary Resulted Sputum Endotracheal HEAVY GROWTH NORMAL RESPIRATORY ROSEMARIE... 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 Anterior circulation remains intact. Mikie Vargas MD Head CT 01/16/16 0000 Signed Impressions: Service Date/Time: Saturday, January 16, 2016 10:51 - CONCLUSION: No extensive low density in the brainstem colin more prominent in the right the left extending into the right middle cerebellar peduncle consistent with brainstem infarct nonhemorrhagic acute Wellington West MD Brain MRI 01/16/16 0000 Signed Impressions: Service Date/Time: Saturday, January 16, 2016 20:05 - CONCLUSION: Recent infarctions in both occipital lobes and left cerebellum. High flair abnormality within the colin but greater on the right where there is enhancement. This is likely related to progressive acute ischemic changes. Mikie Vargas MD Chest X-Ray 01/15/16 0000 Signed Impressions: Service Date/Time: Friday, January 15, 2016 12:09 - CONCLUSION: Underinflation with atelectasis at the lung bases. Otherwise, no acute cardiopulmonary abnormality is visualized. Glen Gordon MD (Abigail Zhang) Assessment and Plan Problem List: (1) Acute renal failure Plan: In a patient with no history of renal disorder and normal renal function as of 01/09 He had some urinary retention as of last night, Lopez was placed and 1700 ml urine return, may be due to undiagnosed BPH Also, he was not on IVF as of yesterday, given tube feeding hypertonicity, he is likely dehydrated as BUN of 126 BUN/Cr ratio of 37 suggesting prerenal causes (dehydration) K acceptable No acid-base abnormalities will obtain a renal US to evaluate for hydronephrosis or other cause will change IVF to 1/2 NS @ 75 cc/hr monitor UOP, currently non oliguric avoid nephrotoxins, medications reviewed and appropriate repeat labs daily (2) Hypernatremia Plan: due to dehydration change IVF to 1/2 NS free water flushes with tube feedings Q4h monitor BMP (3) DM (diabetes mellitus) Plan: monitor BG insulin as needed Code Status full (Abigail Zhang) Assessment and Plan patient was seen and examined. Very unfortunate male with multiple strokes. CAREN could be due to combination of dehydration and obstructive uropathy. Lopez placed and IVF started. Also has hypernatremia, which is likely hypovolemic hypernatremia. Prognosis is poor. Discussed with family. (Josef Rodriges MD) Abigail Zhang Jan 17, 2016 17:27 Josef Rodriges MD Jan 17, 2016 19:48
[2016-01-17] MEDS: SODIUM CHLOR 0.45% 1000 ML INJ 1,000 ML IV SCH (18:19)
--- NOTE | 2016-01-17 18:57 | RADRPT ---
EXAM DATE/TIME: 01/17/2016 18:22 [facility] COMPARISON: CT ABDOMEN & PELVIS W CONTRAST, October 20, 2015, 15:58. INDICATIONS : Abnormal labs. MEDICAL HISTORY : Stroke. Hypertension. A-Fib. Diabetes. Lymphoma. SURGICAL HISTORY : Left elbow surgery. ENCOUNTER: Initial ACUITY: 1 day PAIN SCORE: Nonresponsive. LOCATION: Bilateral flank MEASUREMENTS: RIGHT KIDNEY: 11.9 x 5.1 x 6.5 cm LEFT KIDNEY: 12.6 x 5.9 x 5.6 cm FINDINGS: RIGHT KIDNEY: Renal cortex is normal in thickness and echotexture. No hydronephrosis, stone, or mass. LEFT KIDNEY: Renal cortex is normal in thickness and echotexture. No hydronephrosis, stone, or solid mass. There is a subtle hypoechoic area in the medial kidney which likely represents a prominent column of Berti n and given the negative recent CT. BLADDER: Within normal limits given the degree of distension. CONCLUSION: 1. No evidence of hydronephrosis or renal calculi. 2. Hypoechoic area in the left kidney which appears artifactual given the negative recent CT. Gerald Mukherjee MD on January 17, 2016 at 18:49 Board Certified Radiologist. This report was verified electronically.
[2016-01-17] MEDS: ACETAMINOPHEN 650 MG/20.3 ML UDC TUBE PRN (20:45)
[2016-01-17] MEDS: INSULIN DETEMIR 100 UNITS/ML VIAL SQ SCH (20:45)
[2016-01-18] VITALS (7 sets, daily range): BP systolic 112–126; BP diastolic 65–78; PULSE 93–113; RESP 19–23; TEMP 98.5–101.7; O2SAT 94–99
[2016-01-18] MEDS: SODIUM CHLOR 0.45% 1000 ML INJ 1,000 ML IV SCH (05:22)
[2016-01-18] MEDS: INSULIN ASPART SUPPLEMENTAL SCALE SQ SCH ×4 (05:23→23:05)
[2016-01-18 07:48] LABS: PROTHROMBIN TIME - PATIENT 21.4 SEC (9.8-11.4)
[2016-01-18] MEDS: RESP: IPRATROPIUM 0.5 MG/2.5 ML NEB NEB SCH ×3 (08:15→21:02)
[2016-01-18 08:29] LABS: BICARBONATE 31.8 MEQ/L (21.0-32.0); POTASSIUM 3.3 MEQ/L (3.5-5.1)
[2016-01-18] MEDS: LACTOBACILLUS ACIDOPHILUS 1 GM PACKET TUBE SCH ×2 (08:34→21:00)
[2016-01-18] MEDS: METOPROLOL TARTRATE 50 MG TAB GT SCH ×3 (08:35→16:46)
[2016-01-18] MEDS: NYSTATIN 100,000 U/GM PWD 15 GM BTL TOPICAL SCH ×2 (08:35→21:00)
[2016-01-18] MEDS: levETIRAcetam 500 MG/5 ML UDC TUBE SCH ×2 (08:35→23:02)
[2016-01-18] MEDS: SENNOSIDES SYRUP 8.8 MG/5 ML CUP TUBE SCH ×2 (08:35→21:00)
[2016-01-18] MEDS: RANITIDINE HCL SYRUP 150 MG/10 ML UDC PO SCH (08:35)
[2016-01-18] MEDS: SODIUM CHLORIDE 23.4% INJ 38.5 MEQ in WATER STERILE FOR INJ 1,000 ML IV SCH (11:08)
--- NOTE | 2016-01-18 11:13 | HHI.NPPN ---
Subjective Renal Failure: Acute Interval History The patient has had 4700 cc UOP in past 24 hours. creatinine improved, sodium has increased. Family at the bedside. (Abigail Zhang) Review of Systems General General Remarks unable to evaluate ROS 2' to clinical condition of the pt (Abigail Zhang) Objective Data Data 01/17/16 01/18/16 18:59 06:59 Output Total 3100 ml 1600 ml Balance -3100 ml -1600 ml Output Urine Total 3100 ml 1600 ml # Bowel Movements 1 1 Vital Signs Date Time Temp Pulse Resp B/P Pulse Ox O2 Delivery O2 Flow Rate FiO2 01/18/16 08:19 99 T-piece 6.00 40 01/18/16 08:00 100.4 113 23 112/68 95 01/18/16 04:15 98.5 110 19 117/72 95 01/18/16 00:15 101.7 108 19 119/65 94 01/17/16 20:57 93 T-piece 6.00 40 01/17/16 20:40 101.4 103 18 115/78 98 01/17/16 17:09 95.6 108 21 115/70 93 01/17/16 13:06 101.4 100 22 133/72 95 (Abigail Zhang) -: 01/16/16 0710 01/18/16 0710 Imaging Last 72 hours Impressions Head Magnetic Resonance Angiography 01/16/16 0000 Signed Impressions: Service Date/Time: Saturday, January 16, 2016 20:05 - CONCLUSION: 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 Anterior circulation remains intact. Mikie Vargas MD Head CT 01/16/16 0000 Signed Impressions: Service Date/Time: Saturday, January 16, 2016 10:51 - CONCLUSION: No extensive low density in the brainstem colin more prominent in the right the left extending into the right middle cerebellar peduncle consistent with brainstem infarct nonhemorrhagic acute Wellington West MD Brain MRI 01/16/16 0000 Signed Impressions: Service Date/Time: Saturday, January 16, 2016 20:05 - CONCLUSION: Recent infarctions in both occipital lobes and left cerebellum. High flair abnormality within the colin but greater on the right where there is enhancement. This is likely related to progressive acute ischemic changes. Mikie Vargas MD Tubes & Lines: Arevalo (Abigail Zhang B. RECONCILIATION ACCOUNTANT) Physical Exam General Appearance: Well Developed, Sleeping (Abigail Zhang B. RECONCILIATION ACCOUNTANT) Eyes Eye Exam: Pupils Equal (Vicente,Abigail B. RECONCILIATION ACCOUNTANT) Throat Throat Exam: Oral Mucosa Mcbee & Moist (Vicente,Abigail B. RECONCILIATION ACCOUNTANT) Pulmonary Resp Exam: Clear Bilaterally, Breath Sounds Equal, Decreased Bases, Diminished Breath Sounds (VicenteAbigail B. RECONCILIATION ACCOUNTANT) Gastrointestinal/Abdomen GI Exam: Soft, Non-Tender GI Remarks PEG tube (Juanjo Zhangon B. RECONCILIATION ACCOUNTANT) Genitourinary Exam: Clear Urine (Juanjo Zhangon B. RECONCILIATION ACCOUNTANT) Musculoskeletal MS Exam: Joints Intact (VicenteAbigail B. RECONCILIATION ACCOUNTANT) Integumentary Skin Exam: Clear, Warm, Dry, Intact (VicenteAbigail B. RECONCILIATION ACCOUNTANT) Extremeties Extremities Exam: No Edema, Pedal Pulses Palpable (Juanjo Zhangon B. RECONCILIATION ACCOUNTANT) Neurologic Neuro Remarks pt is locked in, only able to blink/move eyes; unable to communicate verbally ( Juanjo Zhangon B. RECONCILIATION ACCOUNTANT) VTE Prophylaxis Device: SCDs (VicenteAbigail B. RECONCILIATION ACCOUNTANT) Assessment/Plan Discussed Condition With: Patient, Parent, Spouse, Daughter, Relative Assessment Summary: CAREN/Acute Renal Failure Problem List: (1) Acute renal failure Plan: In a patient with no history of renal disorder and normal renal function as of 01/09 This appears to be due to urinary retention, possibly due to BPH Creatinine has improved, excellent UOP K low, replacement ordered No acid-base abnormalities continue IVF, they have been changed to 1/4 NS monitor UOP, currently non oliguric avoid nephrotoxins, medications reviewed and appropriate repeat labs daily (2) Hypernatremia Plan: likely due to dehydration change IVF to 1/4 NS free water flushes with tube feedings Q4h, 300 ml, D/W nurse monitor BMP (3) DM (diabetes mellitus) Plan: monitor BG insulin as needed (Abigail Zhang B. RECONCILIATION ACCOUNTANT) Plan patient was seen and examined. Renal function has improved, but hypernatremia is worse. Changed IVF to 1/4NS. (Josef Rodriges MD) Abigail Zhang [facility] Jan 18, 2016 11:13 Josef Rodriges MD Jan 18, 2016 19:54
[2016-01-18] MEDS: FREE WATER TUBE SCH ×4 (11:30→23:03)
--- NOTE | 2016-01-18 12:46 | HHI.PR ---
Subjective Remarks in no acute distress. Tmax 101.4. good urine output over night. family at the bedside. d/w RN. Objective Vitals Vital Signs Date Time Temp Pulse Resp B/P Pulse Ox O2 Delivery O2 Flow Rate FiO2 01/18/16 08:19 99 T-piece 6.00 40 01/18/16 08:00 100.4 113 23 112/68 95 01/18/16 04:15 98.5 110 19 117/72 95 01/18/16 00:15 101.7 108 19 119/65 94 01/17/16 20:57 93 T-piece 6.00 40 01/17/16 20:40 101.4 103 18 115/78 98 01/17/16 17:09 95.6 108 21 115/70 93 01/17/16 13:06 101.4 100 22 133/72 95 I/O 01/17/16 01/17/16 01/17/16 01/18/16 01/18/16 01/18/16 07:00 15:00 23:00 07:00 15:00 23:00 Intake Total 582 ml Output Total 1700 ml 2150 ml 1600 ml 950 ml Balance -1118 ml -2150 ml -1600 ml -950 ml Intake Oral 0 ml IV Total 0 ml Tube Feeding 442 ml Other 140 ml Output Urine Total 1700 ml 2150 ml 1600 ml 950 ml # Voids 3 # Bowel Movements 1 0 1 Result Diagram: 01/16/16 0710 01/18/16 0710 Imaging Last Impressions Head Magnetic Resonance Angiography 01/16/16 0000 Signed Impressions: Service Date/Time: Saturday, January 16, 2016 20:05 - CONCLUSION: 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 Anterior circulation remains intact. Mikie Vargas MD Head CT 01/16/16 0000 Signed Impressions: Service Date/Time: Saturday, January 16, 2016 10:51 - CONCLUSION: No extensive low density in the brainstem colin more prominent in the right the left extending into the right middle cerebellar peduncle consistent with brainstem infarct nonhemorrhagic acute Wellington West MD Brain MRI 01/16/16 0000 Signed Impressions: Service Date/Time: Saturday, January 16, 2016 20:05 - CONCLUSION: Recent infarctions in both occipital lobes and left cerebellum. High flair abnormality within the colin but greater on the right where there is enhancement. This is likely related to progressive acute ischemic changes. Mikie Vargas MD Chest X-Ray 01/15/16 0000 Signed Impressions: Service Date/Time: Friday, January 15, 2016 12:09 - CONCLUSION: Underinflation with atelectasis at the lung bases. Otherwise, no acute cardiopulmonary abnormality is visualized. Glen Gordon MD Abdomen X-Ray 01/14/16 0000 Signed Impressions: Service Date/Time: Thursday, January 14, 2016 10:19 - CONCLUSION: Moderate stool; otherwise, negative. 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 No evidence of carotid stenosis. Glen Zamora MD Head/Brain Mag Res Venography 12/22/15 0000 Signed Impressions: Service Date/Time: Tuesday, December 22, 2015 09:22 - CONCLUSION: Normal MRV. Jonel Jones Jr., MD Objective Remarks GENERAL: on Trach- in no apparent distress. CARDIOVASCULAR: Regular rate and regular rhythm without murmurs, gallops, or rubs. RESPIRATORY: Clear to auscultation. Breath sounds equal bilaterally. No wheezes , rales, or rhonchi. GASTROINTESTINAL: Abdomen soft, non-tender,distended. hypoactive bowel sounds-PEG in place MUSCULOSKELETAL: Extremities without clubbing, cyanosis, or edema. NEURO: doesn't seem as alert as yesterday Procedures PEG and trach Medications and IVs Current Medications IV Flush (NS Flush) 2 ml UNSCH PRN IVF FLUSH AFTER USING IV ACCESS Last administered on 01/15/16at 09:02; Start 12/21/15 at 06:00 Ondansetron HCl (Zofran Inj) 4 mg STK-MED ONCE .ROUTE ; Start 12/21/15 at 06:22; Stop 12/21/15 at 06:23; Status DC Ondansetron HCl (Zofran Inj) 4 mg ONCE ONCE IV PUSH Last administered on at 06:43; Start 12/21/15 at 06:30; Stop 12/21/15 at 06:31; Status DC Diltiazem HCl 20 mg 20 mg ONCE ONCE IV Last administered on 12/21/15at 06:42; Start 12/21/15 at 06:30; Stop 12/21/15 at 06:31; Status DC Diltiazem HCl/ Sodium Chloride (Cardizem Inj/NS Inj) 125 ml @ 0 mls/hr TITRATE IV Last administered on 12/21/15at 06:47; Start 12/21/15 at 06:30; Stop 12/21/15 at 13:00; Status DC Acetaminophen (Tylenol) 650 mg ONCE ONCE PO ; Start 12/21/15 at 06:45; Stop 12/20 at 06:46; Status DC Lorazepam (Ativan Inj) 1 mg ONCE ONCE IV PUSH Last administered on 12/21/15at 07 :22; Start 12/21/15 at 07:15; Stop 12/21/15 at 07:16; Status DC Etomidate (Amidate Inj) 40 mg STK-MED ONCE .ROUTE Last administered on at 08:17; Start 12/21/15 at 07:37; Stop 12/21/15 at 07:38; Status DC Succinylcholine Chloride 200 mg 200 mg STK-MED ONCE .ROUTE Last administered on 12/21/15at 08:18; Start 12/21/15 at 07:37; Stop 12/21/15 at 07:38; Status DC Propofol (Diprivan 1000 Mg/100ml Inj) 100 ml @ As Directed STK-MED ONCE .ROUTE Last administered on 12/21/15at 08:19; Start 12/21/15 at 07:46; Stop 12/21/15 at 07:47; Status DC Propofol (Diprivan 1000 Mg/100ml Inj) search Sets for Drip. NOW PRN IV SEDATION Last administered on 12/22/15at 06:25; Start 12/21/15 at 08:30; Stop 12/28 at 15:43; Status DC Gadodiamide (Omniscan Pf Inj) 18 ml STK-MED ONCE IV Last administered on at 10:11; Start 12/21/15 at 10:11; Stop 12/21/15 at 10:12; Status DC Pantoprazole Sodium (Protonix Inj) 40 mg DAILY IV Last administered on at 07:39; Start 12/21/15 at 13:00; Stop 01/03/16 at 10:10; Status DC Albuterol/ Ipratropium (Duoneb Neb) 1 ampule Q6HR NEB INH Last administered on 12/25/15at 07:51; Start 12/21/15 at 13:00; Stop 12/25/15 at 13:00; Status DC Miscellaneous Information 1 [id number] Last administered on 12/21/15at 13:00; Start 12/21/15 at 13:00; Stop 01/12/16 at 11:47; Status DC Chlorhexidine Gluconate (Chlorhexidine 2% Cloth) 3 pack Taper DAILY@04 TOP Last administered on 01/11/16at 04:10; Start 12/22/15 at 04:00; Stop 01/12/16 at 11:47; Status DC Chlorhexidine Gluconate 3 pack 3 pack UNSCH PRN TOP HYGIENIC CARE; Start at 13:00; Stop 01/12/16 at 11:47; Status DC Sodium Chloride (NS 1000 ml Inj) 1,000 ml @ 75 mls/hr [id number] IV Last administered on 12/22/15at 17:00; Start 12/21/15 at 13:00; Stop 12/22/15 at 19:01; Status DC Dextrose (D50w (Vial) Inj) 25 ml UNSCH PRN IV PUSH HYPOGLYCEMIA-SEE COMMENTS; Start 12/21/15 at 13:00 Glucagon (Glucagon Inj) 1 mg UNSCH PRN OTHER HYPOGLYCEMIA-SEE COMMENTS; Start 12/21/15 at 13:00 Insulin Human Regular (NovoLIN R SUPPLEMENTAL SCALE) 1 Q6H SQ Last administered on 01/04/16at 06:31; Start 12/21/15 at 13:00; Stop 01/04/16 at 10:05 ; Status DC Levetriacetam (Keppra) 500 mg Q12HR PO Last administered on 12/27/15at 09:00; Start 12/21/15 at 13:45; Stop 12/27/15 at 09:44; Status DC Heparin Sodium (Porcine) (Heparin Inj) 5,000 units BID SQ Last administered on 12/22/15at 20:52; Start 12/21/15 at 21:00; Stop 12/23/15 at 08:32; Status DC Warfarin Sodium (Coumadin) 7.5 mg ONCE ONCE PO Last administered on 12/21/15at 21:43; Start 12/21/15 at 21:00; Stop 12/21/15 at 21:01; Status DC Warfarin Sodium (Coumadin) 5 mg DAILY@16 PO Last administered on 12/23/15at 16:00 ; Start 12/22/15 at 16:00; Stop 12/26/15 at 09:29; Status DC Patient Medication Teaching (Coumadin Booklet) 1 ONCE ONCE XX Last administered on 12/21/15at 20:15; Start 12/21/15 at 20:15; Stop 12/21/15 at 20:16; Status DC Chlorhexidine Gluconate (Peridex 0.12% Liq) 15 ml BID@08,20 MT Last administered on 01/12/16at 08:00; Start 12/22/15 at 20:00; Stop 01/12/16 at 11:47 ; Status DC Gadodiamide 20 ml 20 ml STK-MED ONCE IV Last administered on 12/22/15at 09:55; Start 12/22/15 at 09:55; Stop 12/22/15 at 09:56; Status DC Pharmacy Profile Note ml @ 0 mls/hr UNSCH OTHER ; Start 12/22/15 at 11:00; Stop 12/22/15 at 19:43; Status DC Sodium Chloride 1,000 ml @ 50 mls/hr Q20H IV Last administered on 12/24/15at 20: 02; Start 12/22/15 at 18:44; Stop 12/25/15 at 11:52; Status DC Pharmacy Profile Note (Coumadin Consult Pharmacy) 0 ml @ 0 mls/hr UNSCH OTHER ; Start 12/22/15 at 19:45; Stop 01/04/16 at 12:25; Status DC Acetaminophen 650 mg 650 mg Q6H PRN PO TEMP > 100 Last administered on at 13:24; Start 12/23/15 at 02:45; Stop 12/30/15 at 15:04; Status DC Potassium Chloride 100 ml @ 50 mls/hr Q2H PRN IV For Potassium 2.8 - 3.2 mEq/L ; Start 12/23/15 at 08:30; Stop 01/09/16 at 11:14; Status DC Potassium Chloride (KCl 20 Meq Premix Inj) 100 ml @ 50 mls/hr Q2H PRN IV For Potassium 2.8 - 3.2 mEq/L; Start 12/23/15 at 08:30; Stop 01/09/16 at 11:14; Status DC Potassium Chloride 40 meq 40 meq UNSCH PRN PO/TUBE For Potassium 3.3 - 3.5 mEq/ L; Start 12/23/15 at 08:30; Stop 01/09/16 at 11:14; Status DC Potassium Chloride 100 ml @ 25 mls/hr UNSCH PRN IV For Potassium 3.3 - 3.5 mEq /L; Start 12/23/15 at 08:30; Stop 01/09/16 at 11:14; Status DC Potassium Chloride 100 ml @ 50 mls/hr Q2H PRN IV For Potassium 3.3 - 3.5 mEq/L ; Start 12/23/15 at 08:30; Stop 01/09/16 at 11:14; Status DC Magnesium Sulfate/ Sodium Chloride (Magnesium Sulfate Inj/NS Inj) 100 ml @ 50 mls/hr UNSCH PRN IV For Magnesium 0.9 - 1.1 mg/dL; Start 12/23/15 at 08:30; Stop 01/09/16 at 11:14; Status DC Magnesium Oxide 800 mg 800 mg UNSCH PRN PO For Magnesium 1.2 - 1.6 mg/dL; Start 12/23/15 at 08:30; Stop 01/09/16 at 11:14; Status DC Magnesium Sulfate/ Sodium Chloride (Magnesium Sulfate Inj/NS Inj) 100 ml @ 50 mls/hr UNSCH PRN IV For Magnesium 1.2 - 1.6 mg/dL; Start 12/23/15 at 08:30; Stop 01/09/16 at 11:14; Status DC Potassium Phosphate 2000 mg 2,000 mg Q4H PRN PO For Phosphorus < 2.5 mg/dL; Start 12/23/15 at 08:30; Stop 01/09/16 at 11:14; Status DC Sodium Phosphate/ Sodium Chloride (Sodium Phosphate Inj/NS 250 ml Inj) 250 ml @ 42 mls/hr UNSCH PRN IV For Phosphorus < 2.5 mg/dL; Start 12/23/15 at 08:30; Stop 01/09/16 at 11:14; Status DC Potassium Chloride (KCl 40 Meq/30 ml Liq) 40 meq UNSCH PRN PO/TUBE SEE LABEL COMMENTS; Start 12/23/15 at 08:30; Stop 01/09/16 at 11:14; Status DC Potassium Phosphate 2000 mg 2,000 mg UNSCH PRN PO/TUBE SEE LABEL COMMENTS; Start 12/23/15 at 08:30; Stop 01/09/16 at 11:14; Status DC Potassium Phosphate 30 mmol/ Sodium Chloride 260 ml @ 42 mls/hr UNSCH PRN IV SEE LABEL COMMENTS; Start 12/23/15 at 08:30; Stop 01/09/16 at 11:14; Status DC Sodium Chloride 1,000 ml @ 75 mls/hr [id number] IV ; Start 12/23/15 at 08:30; Stop 12/23/15 at 08:30; Status DC Piperacillin Sod/ Tazobactam Sod 50 ml @ 100 mls/hr Q6H IV Last administered on 12/30/15at 10:02; Start 12/23/15 at 10:00; Stop 12/30/15 at 14:50; Status DC Vancomycin HCl/ Sodium Chloride (Vancomycin Inj/ NS 250 ml Inj) 250 ml @ 250 mls/hr Q12H IV Last administered on 12/29/15at 09:01; Start 12/24/15 at 08:45; Stop 12/29/15 at 15:33; Status DC Warfarin Sodium (Coumadin) 4 mg DAILY@16 PO Last administered on 12/28/15at 16:00 ; Start 12/26/15 at 16:00; Stop 01/04/16 at 12:25; Status DC Levetriacetam (Keppra Liq) 500 mg Q12HR TUBE Last administered on 01/18/16at 08 :35; Start 12/27/15 at 21:00 Docusate Sodium (Colace Liq) 100 mg Q12HR TUBE Last administered on 01/15/16at 09:01; Start 12/27/15 at 21:00; Status Hold Sennosides (Senna Liq) 8.8 mg DAILY TUBE Last administered on 01/15/16at 09:01 ; Start 12/27/15 at 17:00; Stop 01/15/16 at 20:37; Status DC Bisacodyl (Dulcolax Supp) 10 mg ONCE ONCE RECTAL ; Start 12/27/15 at 16:15; Stop 12/27/15 at 16:15; Status DC Albuterol/ Ipratropium (Duoneb Neb) 1 ampule Q4HR NEB PRN NEB RESPIRATORY DISTRESS Last administered on 12/29/15at 12:17; Start 12/27/15 at 22:00; Stop at 08:16; Status DC Bisacodyl (Dulcolax Supp) 10 mg ONCE ONCE RECTAL ; Start 12/28/15 at 12:00; Stop 12/28/15 at 12:01; Status DC Sodium Chloride (Sodium Chloride) 1 gm BID TUBE Last administered on 12/29/15at 09:02; Start 12/28/15 at 21:00; Stop 12/29/15 at 15:43; Status DC Lactulose (Lactulose Liq) 30 ml DAILY TUBE Last administered on 12/29/15at 09:02 ; Start 12/28/15 at 20:30; Stop 12/29/15 at 15:43; Status DC Levofloxacin (Levaquin) 750 mg DAILY@16 TUBE ; Start 12/29/15 at 16:00; Stop 05/05 at 16:00; Status DC Sodium Chloride (Sodium Chloride) 1 gm DAILY TUBE Last administered on at 07:29; Start 12/30/15 at 09:00; Stop 12/31/15 at 14:08; Status DC Water 200 ml 200 ml Q6HR G-TUBE Last administered on 12/31/15at 04:19; Start 06/05 at 14:45; Stop 12/31/15 at 07:31; Status DC Ceftriaxone Sodium/Sodium Chloride (Rocephin Inj/NS Inj) 100 ml @ 200 mls/hr Q12H IV Last administered on 01/03/16at 02:47; Start 12/30/15 at 15:00; Stop at 10:09; Status DC Acetaminophen (Tylenol 650 Mg/ 20 ml Liq) 650 mg Q6H PRN TUBE TEMP >100.4 Last administered on 01/17/16at 20:45; Start 12/30/15 at 15:15 Lactobacillus Acidophilus (Lactinex Pkt) 1 gm BID TUBE Last administered on at 08:34; Start 12/30/15 at 21:00 Enoxaparin Sodium (Lovenox Inj) 90 mg Q12H SQ Last administered on 01/01/16at 21 :57; Start 12/31/15 at 08:00; Stop 01/03/16 at 10:33; Status DC Water (Free Water) 100 ml Q12H G-TUBE ; Start 12/31/15 at 18:00; Stop 12/31/15 at 18:00; Status DC Acetaminophen/ Hydrocodone Bitart ([place] 5-325 Mg) 1 tab Q6H PRN PO PAIN Last administered on 01/16/16at 02:45; Start 12/31/15 at 15:00; Status Hold Fentanyl Citrate (Sublimaze Inj) 25 mcg Q1H PRN IV PUSH BREAKTHROUGH PAIN; Start 12/31/15 at 15:00 Water (Free Water) 200 ml Q8H G-TUBE Last administered on 01/01/16at 17:55; Start 12/31/15 at 18:00; Stop 01/02/16 at 09:56; Status DC Sodium Chloride (Sodium Chloride) 1 gm BID TUBE Last administered on 01/03/16at 07:39; Start 12/31/15 at 21:00; Stop 01/03/16 at 09:08; Status DC Miscellaneous Information Hold Anticoagulation after midni... ONCE ONCE OTHER ; Start 01/01/16 at 10:15; Stop 01/01/16 at 10:29; Status DC Sodium Chloride (NS 1000 ml Inj) 1,000 ml @ 50 mls/hr Q20H IV Last administered on 01/02/16at 12:26; Start 01/01/16 at 18:00; Stop 01/03/16 at 10:07 ; Status DC Midazolam HCl (Versed Inj) 5 mg STK-MED ONCE .ROUTE ; Start 01/02/16 at 12:47; Stop 01/02/16 at 12:48; Status DC Vecuronium [place] (Norcuron 10 Mg Inj) 10 mg STK-MED ONCE .ROUTE ; Start at 12:47; Stop 01/02/16 at 12:48; Status DC Fentanyl Citrate (Sublimaze Inj) 250 mcg ONCE ONCE IV PUSH Last administered on 01/02/16at 15:00; Start 01/02/16 at 15:00; Stop 01/02/16 at 15:01; Status DC Midazolam HCl (Versed Inj) 10 mg ONCE ONCE IV PUSH Last administered on at 15:00; Start 01/02/16 at 15:00; Stop 01/02/16 at 15:01; Status DC Rocuronium [place] (Zemuron Inj) 100 mg BOLUS ONCE IV Last administered on at 15:00; Start 01/02/16 at 15:00; Stop 01/02/16 at 15:01; Status DC Ketamine HCl (Ketalar Inj) 500 mg STK-MED ONCE .ROUTE ; Start 01/02/16 at 14:30 ; Stop 01/02/16 at 14:31; Status DC Propofol 230 mg 230 mg STK-MED ONCE IV ; Start 01/02/16 at 16:51; Stop 01/02/16 at 16:52; Status DC Sodium Chloride (NS 1000 ml Inj) 1,000 ml @ 0 mls/hr Q0M IV ; Start 01/03/16 at 10:15; Stop 01/17/16 at 17:30; Status DC Ranitidine HCl (Zantac Liq) 150 mg Q12HR PO Last administered on 01/17/16at 07: 39; Start 01/04/16 at 09:00; Stop 01/17/16 at 15:23; Status DC Enoxaparin Sodium 90 mg 90 mg Q12HR SQ Last administered on 01/11/16at 10:01; Start 01/04/16 at 09:00; Stop 01/11/16 at 12:35; Status DC Sodium Chloride (NS 500 ml Inj) 500 ml @ 0 mls/hr BOLUS ONCE IV Last administered on 01/03/16at 22:57; Start 01/03/16 at 23:00; Stop 01/03/16 at 23:01 ; Status DC Insulin Aspart (NovoLOG SUPPLEMENTAL SCALE) 1 Q6HR SQ Last administered on 01/17at 05:23; Start 01/04/16 at 12:00 Potassium Chloride (KCl 40 Meq/30 ml Liq) 40 meq Q4H NG Last administered on at 16:21; Start 01/04/16 at 13:00; Stop 01/04/16 at 17:01; Status DC Warfarin Sodium 5 mg 5 mg DAILY@1600 PO Last administered on 01/09/16at 17:21; Start 01/04/16 at 16:00; Stop 01/10/16 at 10:06; Status DC Pharmacy Profile Note (Coumadin Consult Pharmacy) 0 ml @ 0 mls/hr UNSCH XX ; Start 01/04/16 at 12:30 Insulin Detemir (Levemir Inj) 10 units Q12HR SQ Last administered on 01/05/16at 08:00; Start 01/04/16 at 21:00; Stop 01/05/16 at 08:42; Status DC Insulin Detemir (Levemir Inj) 5 units NOW ONCE SQ Last administered on at 13:28; Start 01/04/16 at 12:45; Stop 01/04/16 at 12:46; Status DC Albuterol/ Ipratropium (Duoneb Neb) 1 ampule Q4HR NEB PRN NEB dyspnea Last administered on 01/10/16at 08:51; Start 01/07/16 at 08:15 Warfarin Sodium (Coumadin) 7.5 mg ONCE ONCE PO Last administered on 01/07/16at 16:40; Start 01/07/16 at 16:00; Stop 01/07/16 at 16:01; Status DC Nystatin (Mycostatin Powder) 1 applic Q12HR TOPICAL Last administered on at 08:35; Start 01/08/16 at 21:00 Ipratropium [place] (Atrovent Neb) 0.5 mg TID NEB NEB Last administered on at 08:15; Start 01/08/16 at 20:00 Warfarin Sodium (Coumadin) 5 mg DAILY@1600 PO Last administered on 01/11/16at 14 :26; Start 01/11/16 at 16:00; Stop 01/12/16 at 09:45; Status DC Warfarin Sodium (Coumadin) 6 mg ONCE PO Last administered on 01/10/16at 17:10; Start 01/10/16 at 16:00; Stop 01/10/16 at 21:00; Status DC Metoprolol Tartrate (Lopressor) 50 mg Q12HR GT Last administered on 01/11/16at 10:02; Start 01/10/16 at 11:00; Stop 01/11/16 at 12:30; Status DC Metoprolol Tartrate (Lopressor) 50 mg TID GT Last administered on 01/14/16at 08: 24; Start 01/11/16 at 13:00; Stop 01/14/16 at 08:28; Status DC Insulin Detemir (Levemir Inj) 10 units HS SQ Last administered on 01/11/16at 22: 23; Start 01/11/16 at 21:00; Stop 01/12/16 at 11:47; Status DC Warfarin Sodium (Coumadin) 4 mg DAILY@16 PO ; Start 01/12/16 at 16:00; Stop at 16:00; Status DC Insulin Detemir (Levemir Inj) 20 units HS SQ Last administered on 01/13/16at 20: 26; Start 01/12/16 at 21:00; Stop 01/14/16 at 08:28; Status DC Warfarin Sodium (Coumadin) 2 mg DAILY@16 PO Last administered on 01/13/16at 17: 05; Start 01/12/16 at 16:00; Stop 01/14/16 at 11:23; Status DC Insulin Detemir (Levemir Inj) 22 units HS SQ Last administered on 01/14/16at 21: 37; Start 01/14/16 at 21:00; Stop 01/15/16 at 10:06; Status DC Metoprolol Tartrate (Lopressor) 75 mg TID GT Last administered on 01/18/16at 08: 35; Start 01/14/16 at 09:00 Miscellaneous (Pill Splitter) 1 ea UNSCH PRN OTHER SEE LABEL COMMENTS; Start at 08:30 Warfarin Sodium (Coumadin) 4 mg DAILY@1600 PO Last administered on 01/17/16at 14 :54; Start 01/14/16 at 16:00 Patient Medication Teaching (Coumadin Booklet) 1 ONCE ONCE XX ; Start 01/14/16 at 16:00; Stop 01/14/16 at 16:01; Status DC Insulin Detemir (Levemir Inj) 24 units HS SQ Last administered on 01/17/16at 20: 45; Start 01/15/16 at 21:00 Citalopram Hydrobromide (CeleXA) 20 mg DAILY PEG Last administered on at 08:01; Start 01/16/16 at 09:00; Stop 01/16/16 at 09:41; Status DC Sennosides (Senna Liq) 8.8 mg BID TUBE Last administered on 01/18/16at 08:35; Start 01/15/16 at 21:00 Gadodiamide 18 ml 18 ml STK-MED ONCE IV ; Start 01/16/16 at 20:40; Stop at 20:41; Status DC Sodium Chloride (NS 1000 ml Inj) 1,000 ml @ 125 mls/hr Q8H IV Last administered on 01/17/16at 15:11; Start 01/17/16 at 15:00; Stop 01/17/16 at 17:31 ; Status DC Ranitidine HCl 150 mg 150 mg Q24H PO Last administered on 01/18/16at 08:35; Start 01/18/16 at 09:00 Sodium Chloride 1,000 ml @ 75 mls/hr [id number] IV Last administered on at 05:22; Start 01/17/16 at 18:00; Stop 01/18/16 at 09:28; Status DC Sodium Chloride/ Sterile Water (Sodium Chloride 23.4% Inj/Sterile Water For Inj ) 1,009.625 ml @ 50 mls/hr [id number] IV Last administered on 01/18/16at 11:08; Start 01/18/16 at 11:00 Potassium Chloride (KCl) 40 meq ONCE ONCE PO ; Start 01/18/16 at 09:30; Stop at 09:31; Status DC Potassium Chloride (KCl 40 Meq/30 ml Liq) 40 meq ONCE ONCE TUBE Last administered on 01/18/16at 11:08; Start 01/18/16 at 11:00; Stop 01/18/16 at 11:01 ; Status DC Water (Free Water) 300 ml Q4HR TUBE Last administered on 01/18/16at 11:30; Start 01/18/16 at 12:00 A/P Assessment and Plan A/P (1) CVA (cerebral vascular accident); 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 Continue Keppra and coumadin neurology was reconsulted. Palliative care following. (2)fever- likely central- CXR and UA negative blood cultures negative and sputum culture with normal respiratory bharti- ID follo-up appreciated- continue to monitor temps- antipyretics as needed. (3) Acute respiratory failure Secondary to CVA, Status post tracheostomy. Continue bronchi dilators and pulmonary toilet Duonebs PRN Pulmonary consult appreciated (Dr. Brandon following) (4) acute renal failure/ hypernatremia BUN/ Cr trending down-continue with IV fluid ; continue to monitor renal function and electrolytes- nephrology consult appreciated. renal sonogram with no hydronephrosis (5) A-fib continue lopressor - will monitor and adjust the regimen as needed. continue full anticoagulation with warfarin Echocardiogram completed in November shows preserved EF pharmacy consulted for coumadin dosing. (6) Non-Hodgkin lymphoma s/p brain biopsy on December 13, by Neurosurgery, Dr. Marin - Pathology consistent with acute infarct without evidence of lymphoma Seen by Oncology, Dr. Whyte, who has signed off for current admission as no active oncology issues (7) DM (diabetes mellitus) Patient with a hemoglobin A1c in November of above 7 continue Levemir with sliding scale- will monitor and adjust the regimen as needed. DVT prophylaxis with coumadin. Discharge Planning dc planning to SNF- Medardo Au MD Jan 18, 2016 12:46
[2016-01-18] MEDS: ACETAMINOPHEN 650 MG/20.3 ML UDC TUBE PRN ×2 (12:55→23:02)
--- NOTE | 2016-01-18 13:28 | HHI.HCSW ---
Territory Business Manager Visit Significant Family/Friend Received call from daughter, Leanne. She expressed multiple concerns. Appropriately tearful. Verbalizes understanding Mr. Flores has an extended and supportive family, often present in Mr. Flores' room, however, she is concerned regarding patient's medical treatment being guided by multiple family members and information being shared with "too many people". She feels information is getting lost due to language barriers within the family. Encouraged her to speak with her family and maybe set up a schedule for family visiting as she feels it can be overwhelming at times for her father. She expressed she does not wish to keep anyone from visiting, but would like information filtered through her to assist with communication to/from the family. Offered emotional support and normalized feelings. Leanne tells me she tries to be at the hospital as much as she can, but is always available by telephone. Readdressed health care proxy; per [place] Statutes, medical proxy decision making falls to the majority of adult children as Mr. Flores is not legally . Also spoke with community development manager to inform her of concerns expressed by Leanne and informed her Leanne would like to speak with her regarding above. Leanne, daughter: [phone]<---point of contact Ginny, daughter: [phone] Gerald,son: does not have a telephone as he is in [facility] for work- has regular communication with siblings. . Pertinent Social History Mr. Flores is originally from [place]. He moved to the around 35 years ago, first to [place] and later to [place]. He is not legally but remains with his ex-, Leanne. They have been together for 31+ years and have three children together: Leanne, Gerald, and Ginny. Gerald is currently in [facility] for work. Mr. Flores has 2 brothers and 7 sisters. His father is of old age. His mother is alive and was living with the patient. There is no reported illness in the family, Leanne will attempt to find out more prior to family meeting tomorrow. 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 He is described as a "heavy smoker since age 14". Reported to smoke at least 1PPD, increasingly more in the past year relating to anxiety and fear of cancer returning. Denies alcohol use. He is described as an animated and charismatic man. He best responds to slow and clear speech, as Estonian is his second language. He reportedly responds well to positive reinforcement at well. . Quality of Life Values/Goals He is very much a family man, he comes from a large family and has a good support system. . Advance Directive Leanne tells me she tries to be at the hospital as much as she can, but is always available by telephone. Readdressed health care proxy; per [place] Statutes, medical proxy decision making falls to the majority of adult children as Mr. Flores is not legally . In previous discussion: In speaking with his daughter Leanne, she does not believe he has ever completed advanced directives. Explained to her, if he is unable to make medical decisions for himself, per [place] Statutes, medical proxy decision making would fall to the majority of adult children, as Mr. Flores is not legally . She repots she and her siblings are willing and have been involved since the beginning. They are supported by their mother, patient's ex- and current significant other, Leanne. Important Contacts Leanne, daughter: [phone] Ginny, daughter: [phone] Gerald, son: currently in [facility] for work but has communication with his siblings. Leanne, ex-/current significant other: [phone] . Follow Up Visit Palliative care will continue to follow throughout hospitalization. SW will follow for emotional and social support. Shelly Jones Jan 18, 2016 13:28
[2016-01-18] MEDS: WARFARIN SOD 4 MG TAB PO SCH (16:46)
[2016-01-18] MEDS: INSULIN DETEMIR 100 UNITS/ML VIAL SQ SCH (23:02)
[2016-01-19] VITALS (9 sets, daily range): BP systolic 112–122; BP diastolic 68–78; PULSE 85–106; RESP 14–20; TEMP 97.2–100.2; O2SAT 95–100
[2016-01-19] MEDS: FREE WATER TUBE SCH ×5 (04:00→20:00)
[2016-01-19] MEDS: INSULIN ASPART SUPPLEMENTAL SCALE SQ SCH ×3 (05:27→17:37)
[2016-01-19] MEDS: SODIUM CHLORIDE 23.4% INJ 38.5 MEQ in WATER STERILE FOR INJ 1,000 ML IV SCH (05:28)
[2016-01-19] MEDS: RESP: IPRATROPIUM 0.5 MG/2.5 ML NEB NEB SCH ×3 (08:37→19:57)
[2016-01-19 08:50] LABS: INTERNATIONAL NORMALIZED RATIO 2.4 RATIO
[2016-01-19] MEDS: LACTOBACILLUS ACIDOPHILUS 1 GM PACKET TUBE SCH ×2 (08:53→20:32)
[2016-01-19] MEDS: METOPROLOL TARTRATE 50 MG TAB GT SCH ×3 (08:54→17:38)
[2016-01-19] MEDS: RANITIDINE HCL SYRUP 150 MG/10 ML UDC PO SCH (08:54)
[2016-01-19] MEDS: SENNOSIDES SYRUP 8.8 MG/5 ML CUP TUBE SCH ×2 (08:54→20:32)
[2016-01-19] MEDS: levETIRAcetam 500 MG/5 ML UDC TUBE SCH ×2 (08:54→20:32)
[2016-01-19] MEDS: NYSTATIN 100,000 U/GM PWD 15 GM BTL TOPICAL SCH ×2 (08:56→20:33)
[2016-01-19 09:26] LABS: BICARBONATE 29.1 MEQ/L (21.0-32.0); POTASSIUM 3.2 MEQ/L (3.5-5.1)
--- NOTE | 2016-01-19 10:42 | HHI.NPPN ---
Subjective Renal Failure: Acute Interval History Renal function has improved. Sodium is still high. (Abigail Zhang) Review of Systems General General Remarks unable to evaluate ROS 2' to clinical condition of the pt (Abigail Zhang) Objective Data Data 01/18/16 01/19/16 18:59 06:59 Intake Total 0 ml 1207 ml Output Total 1000 ml 1050 ml Balance -1000 ml 157 ml Intake Oral 0 ml IV Total 575 ml Tube Feeding 632 ml Output Urine Total 1000 ml 1050 ml # Bowel Movements 1 Vital Signs Date Time Temp Pulse Resp B/P Pulse Ox O2 Delivery O2 Flow Rate FiO2 01/19/16 08:36 96 40 01/19/16 08:00 97.2 105 14 116/78 96 01/19/16 07:59 103 01/19/16 04:51 97.9 106 20 122/75 96 01/19/16 00:20 100.2 105 20 119/68 95 01/18/16 20:47 100.2 93 20 121/70 96 01/18/16 16:00 98.8 101 21 125/76 96 01/18/16 15:43 T-Piece 6.00 40 Humidified 01/18/16 12:00 99.1 99 22 126/78 95 (Abigail Zhang) -: 01/16/16 0710 01/19/16 0730 Tubes & Lines: Arevalo Tubes & Lines Comment PEG Drip Comment 1/4 NS (Abigail Zhang) Physical Exam General Appearance: Well Developed, Sleeping (Abigail Zhang) Eyes Eye Exam: Pupils Equal (Abigail Zhang) Throat Throat Exam: Oral Mucosa [place] & Moist (Abigail Zhang) Pulmonary Resp Exam: Clear Bilaterally, Breath Sounds Equal, Decreased Bases, Diminished Breath Sounds (Abigail Zhang) Gastrointestinal/Abdomen GI Exam: Soft, Non-Tender GI Remarks PEG tube (Abigail Zhang) Genitourinary Exam: Clear Urine (Abigail Zhang) Musculoskeletal MS Exam: Joints Intact (Abigail Zhang) Integumentary Skin Exam: Clear, Warm, Dry, Intact (Abigail Zhang) Extremeties Extremities Exam: No Edema, Pedal Pulses Palpable (Abigail Zhang) Neurologic Neuro Remarks pt is locked in, only able to blink/move eyes; unable to communicate verbally ( Abigail Zhang) VTE Prophylaxis Device: SCDs (Abigail Zhang) Assessment/Plan Discussed Condition With: Patient, Parent, Spouse, Daughter, Relative Assessment Summary: CAREN/Acute Renal Failure Problem List: (1) Acute renal failure Plan: In a patient with no history of renal disorder and normal renal function as of 01/09 This appears to be due to urinary retention, possibly due to BPH Creatinine has improved, excellent UOP K low, replacement ordered No acid-base abnormalities continue IVF, 1/4 NS monitor UOP, currently non oliguric avoid nephrotoxins, medications reviewed and appropriate repeat labs daily (2) Hypernatremia Plan: likely due to dehydration IVF is 1/4 NS free water flushes with tube feedings Q4h, increase to 400 ml, D/W nurse monitor BMP (3) DM (diabetes mellitus) Plan: monitor BG insulin as needed (Abigail Zhang) Plan patient was seen and examined. Renal function continues to improve. Hypernatremia persists. If no improvement by tomorrow, change IVF. (Josef Rodriges MD) Abigail Zhang Jan 19, 2016 10:42 Josef Rodriges MD Jan 19, 2016 20:30
--- NOTE | 2016-01-19 11:08 | HHI.HCPN ---
Reason for visit a. To assist with evaluation and management of symptoms including: dyspnea, encephalopathy, depression b. To assist medical decision maker(s) with: better understanding of current medical conditions; weighing benefits/burdens of medical treatment options; making medical treatment decisions. Subjective/Interval History Patient seen today to follow-up with family for medical update, questions about PT etc. Palliative SW spoke w family, community outreach specialist yesterday regarding family concerns about number of visitors, updates, legal decision makers. clinical pharmacy manager has since followed up w daughter, decision makers, some visiting restrictions now in place. PT was consulted, did attempt to get patient seated at bedside, due to lack of trunk, neck muscle control, flaccid did not tolerate being upright. PT did not note any tracking, or attempts to communicate by patient during their therapy. OT continues to assist with range of motion. Patient with low-grade fevers MAXIMUM TEMPERATURE 100.4. Sodium elevated 150, nephrology is added increase free water flushes. Potassium low 3.2. Patient tolerating tube feeding. Having bowel movements. Renal ultrasound done due to lab abnormalities negative for hydronephrosis, calculi other acute process. PRN [place] has been held (... Per family request??, They had previously requested no sedating meds ) Pt seen in room with mother, niece at bedside. Brief general update to them. He is asleep. Eyes open some when family requested to do so in their language, though he does not open for me. He does not appear to track to commands, or look [id number] to commands. Resume sleeping with eyes closed during exam. Tolerating T piece. No evident signs of distress, though patient unable to communicate. Following exam, call to daughter Leanne, voicemail left. History brought forward from initial consult by Rita MOCTEZUMA on 01/10/16: This 59-year-old patient was admitted on 12/21/15 via the ED for facial drooping. ED physician notes that patient and patients are poor historians, EMS reported the could not provide good timelines to them. Patient also reported headache, difficulty ambulating. He had known history of recent findings of mass in the brain. During ED course had deterioration of clinical condition and able to protect his airway, unable to follow commands patient was intubated and CT brain obtained. He was admitted for further evaluation and management to the ICU. Staff Physician was consulted and following patient. Pathology on recent brain biopsy (12/13) still pending. CLINICAL/HOSPITAL COURSE: * CT brain= no focal or acute intracranial hemorrhage. New area decreased density in left occipital lobe suggestive of recent nonhemorrhagic infarct, decreased density in previously noted right occipital lobe has increased in size * Brain MRI = new area of restricted diffusion within left occipital lobe suggesting acute infarct. Interval enlargement of the area of restricted diffusion within right occipital lobe suggesting probable extension of right occipital and started on. Underlying enhancement of right occipital lobe is slightly worse than the previous exam and nonspecific. Biopsy has been performed and results are pending. Tiny focal area of restricted diffusion within right cerebellar hemisphere consistent with probable acute/subacute lacunar infarct. Signal abnormality in the SWI sequence within the right occipital lobe suggesting some hemorrhage in biopsy bed. No midline shift or extra-axial fluid collections. * CXR= no acute cardiopulmonary disease * -Neurology consulted, ordered MRA to look for vertebrobasilar stenosis, echo done last admission notes normal EF with normal valves and normal left atrial size. EEG also ordered. MR venogram ordered. EEG= abnormal study consistent with her encephalopathy. MRV indicated basilar occlusion; neurology notes discussion with family regarding chemical code only, also notes discussion regarding risks associated with the anticoagulates, was discussed with radiologist/INR recommended not helpful to extract basilar clot as this could result in patient's . It was felt the colin was infarcted. Further neurology notes "he could be locked in", is acting as if colin is infarcted. * Oncology known to patient also consulted for non-Hodgkin's lymphoma: Dr Whyte documents that there was no evidence of residual or recurrent disease on CT scans of chest, abdomen, pelvis done in October and November of this year. Pathology was still pending, had been sent to [facility] for [facility] opinion. No acute oncology interventions recommended at that time, will follow. * 6/5 - 6/7 febrile. CPAP trials. Remains on vent off of sedation. Withdrawing to pain. Repeat brain MRI= evolving brainstem stroke. Neurology notes extensive discussion with family, notes discussion the patient is locked in but fully aware, family would like to see help patient does over the next 3 months. 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 Biopsy brain lesion appears consistent with acute infarct no lymphoma. Family desires ongoing aggressive measures, will proceed with tracheostomy. Sputum culture positive sensitive Klebsiella. * 01/01 tracheostomy, PEG tube placement * 01/04 trach collar trials, alternating with T piece. Low-grade fever 100.5. CXR = mild bibasilar atelectasis. Neuro: Spontaneously opening eyes, looking up / down, directionally to commands. * 01/07 still "locked in " , transferred off ICU to regular floor. * 01/08 pulmonology consulted-not CXR clear no evidence of pulmonary infection. He may have some underlying COPD recommends continued aerosol treatments. Further notes long discussion with family at bedside regarding tracheostomy, long-term use of trach until patient able to protect his airway, no further recommendations. Palliative care consulted to assist with clarification of goals of treatment. Advance Directives Living Will: Never completed Health Care Surrogate: Never completed Objective Vital Signs Date Time Temp Pulse Resp B/P Pulse Ox O2 Delivery O2 Flow Rate FiO2 01/19/16 08:36 96 40 01/19/16 08:00 97.2 105 14 116/78 96 01/19/16 07:59 103 01/19/16 04:51 97.9 106 20 122/75 96 01/19/16 00:20 100.2 105 20 119/68 95 01/18/16 20:47 100.2 93 20 121/70 96 01/18/16 16:00 98.8 101 21 125/76 96 01/18/16 15:43 T-Piece 6.00 40 Humidified 01/18/16 12:00 99.1 99 22 126/78 95 Intake & Output 01/19/16 01/19/16 07:00 19:00 Intake Total 1207 ml Output Total 1050 ml Balance 157 ml IV Total 575 ml Tube Feeding 632 ml Output Urine Total 1050 ml Physical Exam CONSTITUTIONAL/GENERAL: This is an adequately nourished patient,asleep, no apparent distress TUBES/LINES/DRAINS: PIV upper extremity, Arevalo catheter, PEG tube, tracheostomy , SCDs SKIN: No jaundice, rashes, or lesions.No wounds seen anteriorly. Skin temperature appropriate. Not diaphoretic. EYES: eyes closed, sleeping CARDIOVASCULAR: Regular rate and rhythm without murmurs. No JVD. Peripheral pulses symmetric. No peripheral edema. RESPIRATORY/CHEST: Symmetric, unlabored respirations. T piece, 20% FiO2. Clear to auscultation. Breath sounds equal bilaterally. GASTROINTESTINAL: Abdomen soft, non-tender, nondistended. ?slight firmness mid lower/right abd. No palpable masses. Bowel sounds normoactive.TF infusing to PEG MUSCULOSKELETAL: Extremities without clubbing, cyanosis, or edema. No joint effusion noted. No mottling or clubbing. NEUROLOGICAL: Asleep during my exam, does not arouse to stimuli. PSYCHIATRIC: Difficult to fully assess due to clinical condition. no apparent hallucinations or other psychotic thought process. Diagnostic Tests Laboratory Laboratory Tests Test 01/17/16 01/17/16 01/17/16 01/18/16 05:00 06:35 11:48 07:10 Urine Color YELLOW (YELLW/STRAW) Urine Turbidity CLEAR (CLEAR) Urine pH 5.5 (5.0-8.5) Urine Specific [place] 1.015 (1.002-1.035) Urine Protein NEG mg/dL (NEG-TRACE) Urine Glucose (UA) NEG mg/dL (NEG) Urine Ketones NEG mg/dL (NEG) Urine Occult Blood SMALL (NEG) Urine Nitrite NEG (NEG) Urine Bilirubin NEG (NEG) Urine Urobilinogen LESS THAN 2.0 MG/DL (LESS THAN 2.0) Urine Leukocyte Esterase NEG (NEG) Urine RBC 23 /hpf (0-3) Urine WBC 4 /hpf (0-5) Urine Hyaline Casts 3 /lpf (RARE) Urine Mucus FEW /lpf (OCC) Microscopic Urinalysis Comment CATH-CULT NOT IND Prothrombin Time 23.5 SEC 21.4 SEC (9.8-11.4) (9.8-11.4) Prothromb Time International 2.2 RATIO 2.0 RATIO Ratio Sodium Level 151 MEQ/L 160 MEQ/L (136-145) (136-145) Potassium Level 4.1 MEQ/L 3.3 MEQ/L (3.5-5.1) (3.5-5.1) Chloride Level 112 MEQ/L 119 MEQ/L (98-107) (98-107) Carbon Dioxide Level 28.1 MEQ/L 31.8 MEQ/L (21.0-32.0) (21.0-32.0) Anion Gap 11 MEQ/L (5-15) 9 MEQ/L (5-15) Blood Urea Nitrogen 126 MG/DL 78 MG/DL (7-18) (7-18) Creatinine 3.28 MG/DL 1.70 MG/DL (0.60-1.30) (0.60-1.30) Estimat Glomerular Filtration 19 ML/MIN (>89) 41 ML/MIN (>89) Rate Random Glucose 204 MG/DL 203 MG/DL (74-106) (74-106) Calcium Level 9.4 MG/DL 9.4 MG/DL (8.5-10.1) (8.5-10.1) Phosphorus Level 2.8 MG/DL (2.5-4.9) Test 01/19/16 07:30 Prothrombin Time 26.0 SEC (9.8-11.4) Prothromb Time International 2.4 RATIO Ratio Sodium Level 160 MEQ/L (136-145) Potassium Level 3.2 MEQ/L (3.5-5.1) Chloride Level 122 MEQ/L (98-107) Carbon Dioxide Level 29.1 MEQ/L (21.0-32.0) Anion Gap 9 MEQ/L (5-15) Blood Urea Nitrogen 52 MG/DL (7-18) Creatinine 1.28 MG/DL (0.60-1.30) Estimat Glomerular Filtration 57 ML/MIN (>89) Rate Random Glucose 161 MG/DL (74-106) Calcium Level 9.2 MG/DL (8.5-10.1) Result Diagram: 01/16/16 0710 01/19/16 0730 Microbiology Microbiology Date/Time Procedure Status Source Growth 01/16/16 12:42 Aerobic Blood Culture - Preliminary Resulted Blood Peripheral NO GROWTH IN 2 DAYS 01/16/16 12:42 Anaerobic Blood Culture - Preliminary Resulted Blood Peripheral NO GROWTH IN 2 DAYS 01/16/16 12:48 Aerobic Blood Culture - Preliminary Resulted Blood Peripheral NO GROWTH IN 2 DAYS 01/16/16 12:48 Anaerobic Blood Culture - Preliminary Resulted Blood Peripheral NO GROWTH IN 2 DAYS 01/16/16 17:05 Gram Stain - Final Complete Sputum Endotracheal 01/16/16 17:05 Sputum Culture - Final Complete Sputum Endotracheal HEAVY GROWTH NORMAL RESPIRATORY [facility] Procedures * 01/01 tracheostomy, PEG tube placement . 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; EEG indicates encephalopathy, neuro following patient felt to be in a "locked-in "state (2) Non-Hodgkin lymphoma Comment: -In remission status post chemotherapy completed May 2015 (3) Acute respiratory failure Comment: Pulmonology following, medical management (4) A-fib (5) Status post stereotactic brain biopsy (6) Brain lesion Comment: Status post biopsy November 2015; pathology consistent with acute infarct without evidence of lymphoma (7) DM (diabetes mellitus) Symptom Scale: (1) Dysphagia Comment: Status post significant CVA, has had PEG tube placed (2) Dyspnea Comment: Respiratory failure secondary to CVA, status post tracheostomy, pulmonary following (3) Encephalopathy Comment: Significant CVA, "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 Albumin 2.4. (5) Depression Comment: At risk for related to "locked in status", communication difficulties , situational, but would likely benefit from anti-depressant Pertinent Non-Medical Issues * Psychosocial:Mr. Flores is originally from [place]. He moved to the [place] around 35 years ago, first to [place] and later to [place]. He is not legally but remains with his ex-, Leanne. They have been together for 31+ years and have three children together: Leanne, Gerald, and Ginny. Gerald is currently in [facility] for work. Mr. Flores has 2 brothers and 7 sisters. His father is of old age. His mother is alive and was living with the patient. Greatly enjoys his family. Retired. 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 * Spiritual: * Legal:Patient due to clinical condition is currently unable to participate in medical decision making. Not clear if or when he will regain this ability. Family does not believe he has completed advance directives. per [place] Statutes, medical proxy decision making would fall to the majority of adult children, as Mr. Flores is not legally . * Ethical issues impacting care: Important Contacts Leanne, daughter: [phone] Ginny, daughter: [phone] Greald, son: currently in [facility] for work but has communication with his siblings. Leanne, ex-: [phone] Prognosis This patient has had 20 day hospital course thus far, admitted on 62 for a large brainstem infarct, bilateral occipital infarcts. He has subsequently had ongoing encephalopathy and severe communication limitations, neurology feels he is in a "locked-in "state. He has suffered from respiratory failure likely secondary to significant CVA. Appears he should be able to survive this acute hospitalization, however not clear when or if he will regain ability to communicate, based on current assessments patient will require long-term care placement. He will remain high risk for potential competition/setbacks due to immobile status including infections, DVT etc. . Code Status: Full Code Plan * GOALS: Very aggressive. See family conference component on initial consult for additional detail. Meeting In summary: Initially they had many questions regarding admission and biopsy which occurred in November, they ask about differentials and decision making leading to the biopsy, and have many concerns regarding that clinical course--advised that I could not speak to any of those questions or processes as I was not involved in his care and decision making at that time, recommend them to direct those specific questions to those initial providers which provided those services. Otherwise review of conditions, goals as detailed in "issues discussed". Family expresses that Mr. Flores did remarkably well following his chemotherapy for lymphoma just last year, and that he had been doing fine until recent issue in November. They endorsed that he is a fighter, that he is a very optimistic person, and that they are certain he is "in there "and would want to continue fighting for whatever recovery he might have." They have many questions regarding rehabilitation services and placement as well as financial coverage for these services, advised that case management could assist them with the various applications which already in process, but that any placement would depend on funding, or alternatively coleman placement which is up to any individual institution. They would like to maximize PT/OT/ST ongoing while here in the hospital. They also request courtesy consult of to follow him for pulmonary as he is known to the family through their latter-day. * 01/19/16 Goals remain aggressive. Family yesterday expressed concerns regarding medical updates to non-decision makers, too many visitors distressing patient etc. Palliative social media senior associate discussed with community outreach specialist who followed up with patient and family. Medical updates to be limited to decision makers which are the patient's adult children, as well as the patient ex- who is involved with patient and children include in decision-making. I have left voicemail today for daughter Leanne. * CODE STATUSfull code * Symptoms: == Dysphagia--Status post significant CVA, has had PEG tube placed == Dyspnea --Respiratory failure secondary to CVA, status post tracheostomy, pulmonary following; currently no apparent distress/ CXR bibasilar atelectasis, unchanged. == Encephalopathy--Significant CVA, "locked-in" state; follow-up MRI with no significant changes == Malnutrition--Status post PEG tube placement. Albumin 2.4.; tolerating TF ; having bowel movements == depression/anxiety -- At risk for related to "locked in status", communication difficulties, situational, but would likely benefit from anti- depressant. Family reports tearful at times when they talk to him. d/w medical attending, celexa 20mg QD had been added-- d/c per family request. Family indicates has not seen any further tearful episodes since last week. * Palliative care will continue to follow during hospital course as condition evolves, to assist patient/decision-maker with understanding of medical conditions, weighing benefits/burdens of treatment options, for clarification of goals of treatment. Additionally will assist with any symptoms of palliative concern . Time Spent Total Floor Time (mins): 20 >50% Counseling/Coord of Care: Yes Attestation To help prompt me to consider important information that might be impacting today's encounter and assessment, information from prior notes written by myself or my colleagues may have been "brought forward" into today's note. My signature on this note, however, is an attestation that I personally performed the exam, history, and/or decision-making noted today, and, unless otherwise indicated, the interactions with patient, family, and staff as well as the review of records all occurred today. I also attest that the listed assessment and stated plan reflect my best clinical judgment today based on the combination of historical information, prior notes, and today's exam/ interactions. When time spent is documented, it refers only to time spent today by the signer, or if indicated, combined time spent today by collaborating physician/nurse practitioner. Tiara Colin Jan 19, 2016 11:08
--- NOTE | 2016-01-19 12:34 | HHI.PR ---
Subjective Remarks looks better today. is more alert and opens the eyes to calling his name. family at the bedside. Objective Vitals Vital Signs Date Time Temp Pulse Resp B/P Pulse Ox O2 Delivery O2 Flow Rate FiO2 01/19/16 08:36 96 40 01/19/16 08:00 97.2 105 14 116/78 96 01/19/16 07:59 103 01/19/16 04:51 97.9 106 20 122/75 96 01/19/16 00:20 100.2 105 20 119/68 95 01/18/16 20:47 100.2 93 20 121/70 96 01/18/16 16:00 98.8 101 21 125/76 96 01/18/16 15:43 T-Piece 6.00 40 Humidified I/O 01/18/16 01/18/16 01/18/16 01/19/16 01/19/16 01/19/16 07:00 15:00 23:00 07:00 15:00 23:00 Intake Total 0 ml 1207 ml Output Total 950 ml 1000 ml 650 ml 400 ml Balance -950 ml -1000 ml -650 ml 807 ml Intake Oral 0 ml IV Total 575 ml Tube Feeding 632 ml Output Urine Total 950 ml 1000 ml 650 ml 400 ml # Bowel Movements 1 1 Result Diagram: 01/16/16 0710 01/19/16 0730 Imaging Last Impressions Head Magnetic Resonance Angiography 01/16/16 0000 Signed Impressions: Service Date/Time: Saturday, January 16, 2016 20:05 - CONCLUSION: 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 Anterior circulation remains intact. Mikie Vargas MD Head CT 01/16/16 0000 Signed Impressions: Service Date/Time: Saturday, January 16, 2016 10:51 - CONCLUSION: No extensive low density in the brainstem colin more prominent in the right the left extending into the right middle cerebellar peduncle consistent with brainstem infarct nonhemorrhagic acute Wellington West MD Brain MRI 01/16/16 0000 Signed Impressions: Service Date/Time: Saturday, January 16, 2016 20:05 - CONCLUSION: Recent infarctions in both occipital lobes and left cerebellum. High flair abnormality within the colin but greater on the right where there is enhancement. This is likely related to progressive acute ischemic changes. Mikie Vargas MD Chest X-Ray 01/15/16 0000 Signed Impressions: Service Date/Time: Friday, January 15, 2016 12:09 - CONCLUSION: Underinflation with atelectasis at the lung bases. Otherwise, no acute cardiopulmonary abnormality is visualized. Glen Gordon MD Abdomen X-Ray 01/14/16 0000 Signed Impressions: Service Date/Time: Thursday, January 14, 2016 10:19 - CONCLUSION: Moderate stool; otherwise, negative. 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 No evidence of carotid stenosis. Glen Zamora MD Head/Brain Mag Res Venography 12/22/15 0000 Signed Impressions: Service Date/Time: Tuesday, December 22, 2015 09:22 - CONCLUSION: Normal MRV. Jonel Jones Jr., MD Objective Remarks GENERAL: on Trach- in no apparent distress. CARDIOVASCULAR: Regular rate and regular rhythm without murmurs, gallops, or rubs. RESPIRATORY: Clear to auscultation. Breath sounds equal bilaterally. No wheezes , rales, or rhonchi. GASTROINTESTINAL: Abdomen soft, non-tender,distended. hypoactive bowel sounds-PEG in place MUSCULOSKELETAL: Extremities without clubbing, cyanosis, or edema. NEURO: is more alert today-opens the eyes to calling his name Procedures PEG and trach Medications and IVs Current Medications IV Flush (NS Flush) 2 ml UNSCH PRN IVF FLUSH AFTER USING IV ACCESS Last administered on 01/15/16at 09:02; Start 12/21/15 at 06:00 Ondansetron HCl (Zofran Inj) 4 mg STK-MED ONCE .ROUTE ; Start 12/21/15 at 06:22; Stop 12/21/15 at 06:23; Status DC Ondansetron HCl (Zofran Inj) 4 mg ONCE ONCE IV PUSH Last administered on at 06:43; Start 12/21/15 at 06:30; Stop 12/21/15 at 06:31; Status DC Diltiazem HCl 20 mg 20 mg ONCE ONCE IV Last administered on 12/21/15at 06:42; Start 12/21/15 at 06:30; Stop 12/21/15 at 06:31; Status DC Diltiazem HCl/ Sodium Chloride (Cardizem Inj/NS Inj) 125 ml @ 0 mls/hr TITRATE IV Last administered on 12/21/15at 06:47; Start 12/21/15 at 06:30; Stop 12/21/15 at 13:00; Status DC Acetaminophen (Tylenol) 650 mg ONCE ONCE PO ; Start 12/21/15 at 06:45; Stop 12/20 at 06:46; Status DC Lorazepam (Ativan Inj) 1 mg ONCE ONCE IV PUSH Last administered on 12/21/15at 07 :22; Start 12/21/15 at 07:15; Stop 12/21/15 at 07:16; Status DC Etomidate (Amidate Inj) 40 mg STK-MED ONCE .ROUTE Last administered on at 08:17; Start 12/21/15 at 07:37; Stop 12/21/15 at 07:38; Status DC Succinylcholine Chloride 200 mg 200 mg STK-MED ONCE .ROUTE Last administered on 12/21/15 08:18; Start 12/21/15 at 07:37; Stop 12/21/15 at 07:38; Status DC Propofol (Diprivan 1000 Mg/100ml Inj) 100 ml @ As Directed STK-MED ONCE .ROUTE Last administered on 12/21/15at 08:19; Start 12/21/15 at 07:46; Stop 12/21/15 at 07:47; Status DC Propofol (Diprivan 1000 Mg/100ml Inj) search Sets for Drip. NOW PRN IV SEDATION Last administered on 12/22/15at 06:25; Start 12/21/15 at 08:30; Stop 12/28 at 15:43; Status DC Gadodiamide (Omniscan Pf Inj) 18 ml STK-MED ONCE IV Last administered on at 10:11; Start 12/21/15 at 10:11; Stop 12/21/15 at 10:12; Status DC Pantoprazole Sodium (Protonix Inj) 40 mg DAILY IV Last administered on at 07:39; Start 12/21/15 at 13:00; Stop 01/03/16 at 10:10; Status DC Albuterol/ Ipratropium (Duoneb Neb) 1 ampule Q6HR NEB INH Last administered on 12/25/15at 07:51; Start 12/21/15 at 13:00; Stop 12/25/15 at 13:00; Status DC Miscellaneous Information 1 [id number] Last administered on 12/21/15at 13:00; Start 12/21/15 at 13:00; Stop 01/12/16 at 11:47; Status DC Chlorhexidine Gluconate (Chlorhexidine 2% Cloth) 3 pack Taper DAILY@04 TOP Last administered on 01/11/16at 04:10; Start 12/22/15 at 04:00; Stop 01/12/16 at 11:47; Status DC Chlorhexidine Gluconate 3 pack 3 pack UNSCH PRN TOP HYGIENIC CARE; Start at 13:00; Stop 01/12/16 at 11:47; Status DC Sodium Chloride (NS 1000 ml Inj) 1,000 ml @ 75 mls/hr [id number] IV Last administered on 12/22/15at 17:00; Start 12/21/15 at 13:00; Stop 12/22/15 at 19:01; Status DC Dextrose (D50w (Vial) Inj) 25 ml UNSCH PRN IV PUSH HYPOGLYCEMIA-SEE COMMENTS; Start 12/21/15 at 13:00 Glucagon (Glucagon Inj) 1 mg UNSCH PRN OTHER HYPOGLYCEMIA-SEE COMMENTS; Start 12/21/15 at 13:00 Insulin Human Regular (NovoLIN R SUPPLEMENTAL SCALE) 1 Q6H SQ Last administered on 01/04/16at 06:31; Start 12/21/15 at 13:00; Stop 01/04/16 at 10:05 ; Status DC Levetriacetam (Keppra) 500 mg Q12HR PO Last administered on 12/27/15at 09:00; Start 12/21/15 at 13:45; Stop 12/27/15 at 09:44; Status DC Heparin Sodium (Porcine) (Heparin Inj) 5,000 units BID SQ Last administered on 12/22/15at 20:52; Start 12/21/15 at 21:00; Stop 12/23/15 at 08:32; Status DC Warfarin Sodium (Coumadin) 7.5 mg ONCE ONCE PO Last administered on 12/21/15at 21:43; Start 12/21/15 at 21:00; Stop 12/21/15 at 21:01; Status DC Warfarin Sodium (Coumadin) 5 mg DAILY@16 PO Last administered on 12/23/15at 16:00 ; Start 12/22/15 at 16:00; Stop 12/26/15 at 09:29; Status DC Patient Medication Teaching (Coumadin Booklet) 1 ONCE ONCE XX Last administered on 12/21/15at 20:15; Start 12/21/15 at 20:15; Stop 12/21/15 at 20:16; Status DC Chlorhexidine Gluconate (Peridex 0.12% Liq) 15 ml BID@08,20 MT Last administered on 01/12/16at 08:00; Start 12/22/15 at 20:00; Stop 01/12/16 at 11:47 ; Status DC Gadodiamide 20 ml 20 ml STK-MED ONCE IV Last administered on 12/22/15at 09:55; Start 12/22/15 at 09:55; Stop 12/22/15 at 09:56; Status DC Pharmacy Profile Note ml @ 0 mls/hr UNSCH OTHER ; Start 12/22/15 at 11:00; Stop 12/22/15 at 19:43; Status DC Sodium Chloride 1,000 ml @ 50 mls/hr Q20H IV Last administered on 12/24/15at 20: 02; Start 12/22/15 at 18:44; Stop 12/25/15 at 11:52; Status DC Pharmacy Profile Note (Coumadin Consult Pharmacy) 0 ml @ 0 mls/hr UNSCH OTHER ; Start 12/22/15 at 19:45; Stop 01/04/16 at 12:25; Status DC Acetaminophen 650 mg 650 mg Q6H PRN PO TEMP > 100 Last administered on at 13:24; Start 12/23/15 at 02:45; Stop 12/30/15 at 15:04; Status DC Potassium Chloride 100 ml @ 50 mls/hr Q2H PRN IV For Potassium 2.8 - 3.2 mEq/L ; Start 12/23/15 at 08:30; Stop 01/09/16 at 11:14; Status DC Potassium Chloride (KCl 20 Meq Premix Inj) 100 ml @ 50 mls/hr Q2H PRN IV For Potassium 2.8 - 3.2 mEq/L; Start 12/23/15 at 08:30; Stop 01/09/16 at 11:14; Status DC Potassium Chloride 40 meq 40 meq UNSCH PRN PO/TUBE For Potassium 3.3 - 3.5 mEq/ L; Start 12/23/15 at 08:30; Stop 01/09/16 at 11:14; Status DC Potassium Chloride 100 ml @ 25 mls/hr UNSCH PRN IV For Potassium 3.3 - 3.5 mEq /L; Start 12/23/15 at 08:30; Stop 01/09/16 at 11:14; Status DC Potassium Chloride 100 ml @ 50 mls/hr Q2H PRN IV For Potassium 3.3 - 3.5 mEq/L ; Start 12/23/15 at 08:30; Stop 01/09/16 at 11:14; Status DC Magnesium Sulfate/ Sodium Chloride (Magnesium Sulfate Inj/NS Inj) 100 ml @ 50 mls/hr UNSCH PRN IV For Magnesium 0.9 - 1.1 mg/dL; Start 12/23/15 at 08:30; Stop 01/09/16 at 11:14; Status DC Magnesium Oxide 800 mg 800 mg UNSCH PRN PO For Magnesium 1.2 - 1.6 mg/dL; Start 12/23/15 at 08:30; Stop 01/09/16 at 11:14; Status DC Magnesium Sulfate/ Sodium Chloride (Magnesium Sulfate Inj/NS Inj) 100 ml @ 50 mls/hr UNSCH PRN IV For Magnesium 1.2 - 1.6 mg/dL; Start 12/23/15 at 08:30; Stop 01/09/16 at 11:14; Status DC Potassium Phosphate 2000 mg 2,000 mg Q4H PRN PO For Phosphorus < 2.5 mg/dL; Start 12/23/15 at 08:30; Stop 01/09/16 at 11:14; Status DC Sodium Phosphate/ Sodium Chloride (Sodium Phosphate Inj/NS 250 ml Inj) 250 ml @ 42 mls/hr UNSCH PRN IV For Phosphorus < 2.5 mg/dL; Start 12/23/15 at 08:30; Stop 01/09/16 at 11:14; Status DC Potassium Chloride (KCl 40 Meq/30 ml Liq) 40 meq UNSCH PRN PO/TUBE SEE LABEL COMMENTS; Start 12/23/15 at 08:30; Stop 01/09/16 at 11:14; Status DC Potassium Phosphate 2000 mg 2,000 mg UNSCH PRN PO/TUBE SEE LABEL COMMENTS; Start 12/23/15 at 08:30; Stop 01/09/16 at 11:14; Status DC Potassium Phosphate 30 mmol/ Sodium Chloride 260 ml @ 42 mls/hr UNSCH PRN IV SEE LABEL COMMENTS; Start 12/23/15 at 08:30; Stop 01/09/16 at 11:14; Status DC Sodium Chloride 1,000 ml @ 75 mls/hr [id number] IV ; Start 12/23/15 at 08:30; Stop 12/23/15 at 08:30; Status DC Piperacillin Sod/ Tazobactam Sod 50 ml @ 100 mls/hr Q6H IV Last administered on 12/30/15at 10:02; Start 12/23/15 at 10:00; Stop 12/30/15 at 14:50; Status DC Vancomycin HCl/ Sodium Chloride (Vancomycin Inj/ NS 250 ml Inj) 250 ml @ 250 mls/hr Q12H IV Last administered on 12/29/15at 09:01; Start 12/24/15 at 08:45; Stop 12/29/15 at 15:33; Status DC Warfarin Sodium (Coumadin) 4 mg DAILY@16 PO Last administered on 12/28/15at 16:00 ; Start 12/26/15 at 16:00; Stop 01/04/16 at 12:25; Status DC Levetriacetam (Keppra Liq) 500 mg Q12HR TUBE Last administered on 01/19/16at 08: 54; Start 12/27/15 at 21:00 Docusate Sodium (Colace Liq) 100 mg Q12HR TUBE Last administered on 01/15/16at 09:01; Start 12/27/15 at 21:00; Status Hold Sennosides (Senna Liq) 8.8 mg DAILY TUBE Last administered on 01/15/16at 09:01 ; Start 12/27/15 at 17:00; Stop 01/15/16 at 20:37; Status DC Bisacodyl (Dulcolax Supp) 10 mg ONCE ONCE RECTAL ; Start 12/27/15 at 16:15; Stop 12/27/15 at 16:15; Status DC Albuterol/ Ipratropium (Duoneb Neb) 1 ampule Q4HR NEB PRN NEB RESPIRATORY DISTRESS Last administered on 12/29/15at 12:17; Start 12/27/15 at 22:00; Stop at 08:16; Status DC Bisacodyl (Dulcolax Supp) 10 mg ONCE ONCE RECTAL ; Start 12/28/15 at 12:00; Stop 12/28/15 at 12:01; Status DC Sodium Chloride (Sodium Chloride) 1 gm BID TUBE Last administered on 12/29/15at 09:02; Start 12/28/15 at 21:00; Stop 12/29/15 at 15:43; Status DC Lactulose (Lactulose Liq) 30 ml DAILY TUBE Last administered on 12/29/15at 09:02 ; Start 12/28/15 at 20:30; Stop 12/29/15 at 15:43; Status DC Levofloxacin (Levaquin) 750 mg DAILY@16 TUBE ; Start 12/29/15 at 16:00; Stop 05/05 at 16:00; Status DC Sodium Chloride (Sodium Chloride) 1 gm DAILY TUBE Last administered on at 07:29; Start 12/30/15 at 09:00; Stop 12/31/15 at 14:08; Status DC Water 200 ml 200 ml Q6HR G-TUBE Last administered on 12/31/15at 04:19; Start 06/05 at 14:45; Stop 12/31/15 at 07:31; Status DC Ceftriaxone Sodium/Sodium Chloride (Rocephin Inj/NS Inj) 100 ml @ 200 mls/hr Q12H IV Last administered on 01/03/16at 02:47; Start 12/30/15 at 15:00; Stop at 10:09; Status DC Acetaminophen (Tylenol 650 Mg/ 20 ml Liq) 650 mg Q6H PRN TUBE TEMP >100.4 Last administered on 01/18/16at 23:02; Start 12/30/15 at 15:15 Lactobacillus Acidophilus (Lactinex Pkt) 1 gm BID TUBE Last administered on 01/18at 08:53; Start 12/30/15 at 21:00 Enoxaparin Sodium (Lovenox Inj) 90 mg Q12H SQ Last administered on 01/01/16at 21 :57; Start 12/31/15 at 08:00; Stop 01/03/16 at 10:33; Status DC Water (Free Water) 100 ml Q12H G-TUBE ; Start 12/31/15 at 18:00; Stop 12/31/15 at 18:00; Status DC Acetaminophen/ Hydrocodone Bitart ([place] 5-325 Mg) 1 tab Q6H PRN PO PAIN Last administered on 01/16/16at 02:45; Start 12/31/15 at 15:00; Status Hold Fentanyl Citrate (Sublimaze Inj) 25 mcg Q1H PRN IV PUSH BREAKTHROUGH PAIN; Start 12/31/15 at 15:00 Water (Free Water) 200 ml Q8H G-TUBE Last administered on 01/01/16at 17:55; Start 12/31/15 at 18:00; Stop 01/02/16 at 09:56; Status DC Sodium Chloride (Sodium Chloride) 1 gm BID TUBE Last administered on 01/03/16at 07:39; Start 12/31/15 at 21:00; Stop 01/03/16 at 09:08; Status DC Miscellaneous Information Hold Anticoagulation after midni... ONCE ONCE OTHER ; Start 01/01/16 at 10:15; Stop 01/01/16 at 10:29; Status DC Sodium Chloride (NS 1000 ml Inj) 1,000 ml @ 50 mls/hr Q20H IV Last administered on 01/02/16at 12:26; Start 01/01/16 at 18:00; Stop 01/03/16 at 10:07 ; Status DC Midazolam HCl (Versed Inj) 5 mg STK-MED ONCE .ROUTE ; Start 01/02/16 at 12:47; Stop 01/02/16 at 12:48; Status DC Vecuronium Rainbow (Norcuron 10 Mg Inj) 10 mg STK-MED ONCE .ROUTE ; Start at 12:47; Stop 01/02/16 at 12:48; Status DC Fentanyl Citrate (Sublimaze Inj) 250 mcg ONCE ONCE IV PUSH Last administered on 01/02/16at 15:00; Start 01/02/16 at 15:00; Stop 01/02/16 at 15:01; Status DC Midazolam HCl (Versed Inj) 10 mg ONCE ONCE IV PUSH Last administered on at 15:00; Start 01/02/16 at 15:00; Stop 01/02/16 at 15:01; Status DC Rocuronium Rainbow (Zemuron Inj) 100 mg BOLUS ONCE IV Last administered on at 15:00; Start 01/02/16 at 15:00; Stop 01/02/16 at 15:01; Status DC Ketamine HCl (Ketalar Inj) 500 mg STK-MED ONCE .ROUTE ; Start 01/02/16 at 14:30 ; Stop 01/02/16 at 14:31; Status DC Propofol 230 mg 230 mg STK-MED ONCE IV ; Start 01/02/16 at 16:51; Stop 01/02/16 at 16:52; Status DC Sodium Chloride (NS 1000 ml Inj) 1,000 ml @ 0 mls/hr Q0M IV ; Start 01/03/16 at 10:15; Stop 01/17/16 at 17:30; Status DC Ranitidine HCl (Zantac Liq) 150 mg Q12HR PO Last administered on 01/17/16at 07: 39; Start 01/04/16 at 09:00; Stop 01/17/16 at 15:23; Status DC Enoxaparin Sodium 90 mg 90 mg Q12HR SQ Last administered on 01/11/16at 10:01; Start 01/04/16 at 09:00; Stop 01/11/16 at 12:35; Status DC Sodium Chloride (NS 500 ml Inj) 500 ml @ 0 mls/hr BOLUS ONCE IV Last administered on 01/03/16at 22:57; Start 01/03/16 at 23:00; Stop 01/03/16 at 23:01 ; Status DC Insulin Aspart (NovoLOG SUPPLEMENTAL SCALE) 1 Q6HR SQ Last administered on at 11:41; Start 01/04/16 at 12:00 Potassium Chloride (KCl 40 Meq/30 ml Liq) 40 meq Q4H NG Last administered on at 16:21; Start 01/04/16 at 13:00; Stop 01/04/16 at 17:01; Status DC Warfarin Sodium 5 mg 5 mg DAILY@1600 PO Last administered on 01/09/16at 17:21; Start 01/04/16 at 16:00; Stop 01/10/16 at 10:06; Status DC Pharmacy Profile Note (Coumadin Consult Pharmacy) 0 ml @ 0 mls/hr UNSCH XX ; Start 01/04/16 at 12:30 Insulin Detemir (Levemir Inj) 10 units Q12HR SQ Last administered on 01/05/16at 08:00; Start 01/04/16 at 21:00; Stop 01/05/16 at 08:42; Status DC Insulin Detemir (Levemir Inj) 5 units NOW ONCE SQ Last administered on at 13:28; Start 01/04/16 at 12:45; Stop 01/04/16 at 12:46; Status DC Albuterol/ Ipratropium (Duoneb Neb) 1 ampule Q4HR NEB PRN NEB dyspnea Last administered on 01/10/16at 08:51; Start 01/07/16 at 08:15 Warfarin Sodium (Coumadin) 7.5 mg ONCE ONCE PO Last administered on 01/07/16at 16:40; Start 01/07/16 at 16:00; Stop 01/07/16 at 16:01; Status DC Nystatin (Mycostatin Powder) 1 applic Q12HR TOPICAL Last administered on at 08:56; Start 01/08/16 at 21:00 Ipratropium Rainbow (Atrovent Neb) 0.5 mg TID NEB NEB Last administered on 01/18at 08:37; Start 01/08/16 at 20:00 Warfarin Sodium (Coumadin) 5 mg DAILY@1600 PO Last administered on 01/11/16at 14 :26; Start 01/11/16 at 16:00; Stop 01/12/16 at 09:45; Status DC Warfarin Sodium (Coumadin) 6 mg ONCE PO Last administered on 01/10/16at 17:10; Start 01/10/16 at 16:00; Stop 01/10/16 at 21:00; Status DC Metoprolol Tartrate (Lopressor) 50 mg Q12HR GT Last administered on 01/11/16at 10:02; Start 01/10/16 at 11:00; Stop 01/11/16 at 12:30; Status DC Metoprolol Tartrate (Lopressor) 50 mg TID GT Last administered on 01/14/16at 08: 24; Start 01/11/16 at 13:00; Stop 01/14/16 at 08:28; Status DC Insulin Detemir (Levemir Inj) 10 units HS SQ Last administered on 01/11/16at 22: 23; Start 01/11/16 at 21:00; Stop 01/12/16 at 11:47; Status DC Warfarin Sodium (Coumadin) 4 mg DAILY@16 PO ; Start 01/12/16 at 16:00; Stop at 16:00; Status DC Insulin Detemir (Levemir Inj) 20 units HS SQ Last administered on 01/13/16at 20: 26; Start 01/12/16 at 21:00; Stop 01/14/16 at 08:28; Status DC Warfarin Sodium (Coumadin) 2 mg DAILY@16 PO Last administered on 01/13/16at 17: 05; Start 01/12/16 at 16:00; Stop 01/14/16 at 11:23; Status DC Insulin Detemir (Levemir Inj) 22 units HS SQ Last administered on 01/14/16at 21: 37; Start 01/14/16 at 21:00; Stop 01/15/16 at 10:06; Status DC Metoprolol Tartrate (Lopressor) 75 mg TID GT Last administered on 01/19/16at 11: 47; Start 01/14/16 at 09:00 Miscellaneous (Pill Splitter) 1 ea UNSCH PRN OTHER SEE LABEL COMMENTS; Start at 08:30 Warfarin Sodium (Coumadin) 4 mg DAILY@1600 PO Last administered on 01/18/16at 16 :46; Start 01/14/16 at 16:00 Patient Medication Teaching (Coumadin Booklet) 1 ONCE ONCE XX ; Start 01/14/16 at 16:00; Stop 01/14/16 at 16:01; Status DC Insulin Detemir (Levemir Inj) 24 units HS SQ Last administered on 01/18/16at 23: 02; Start 01/15/16 at 21:00 Citalopram Hydrobromide (CeleXA) 20 mg DAILY PEG Last administered on at 08:01; Start 01/16/16 at 09:00; Stop 01/16/16 at 09:41; Status DC Sennosides (Senna Liq) 8.8 mg BID TUBE Last administered on 01/18/16at 08:35; Start 01/15/16 at 21:00 Gadodiamide 18 ml 18 ml STK-MED ONCE IV ; Start 01/16/16 at 20:40; Stop at 20:41; Status DC Sodium Chloride (NS 1000 ml Inj) 1,000 ml @ 125 mls/hr Q8H IV Last administered on 01/17/16at 15:11; Start 01/17/16 at 15:00; Stop 01/17/16 at 17:31 ; Status DC Ranitidine HCl 150 mg 150 mg Q24H PO Last administered on 01/19/16at 08:54; Start 01/18/16 at 09:00 Sodium Chloride 1,000 ml @ 75 mls/hr [id number] IV Last administered on at 05:22; Start 01/17/16 at 18:00; Stop 01/18/16 at 09:28; Status DC Sodium Chloride/ Sterile Water (Sodium Chloride 23.4% Inj/Sterile Water For Inj ) 1,009.625 ml @ 50 mls/hr [id number] IV Last administered on 01/19/16at 05:28; Start 01/18/16 at 11:00 Potassium Chloride (KCl) 40 meq ONCE ONCE PO ; Start 01/18/16 at 09:30; Stop at 09:31; Status DC Potassium Chloride (KCl 40 Meq/30 ml Liq) 40 meq ONCE ONCE TUBE Last administered on 01/18/16at 11:08; Start 01/18/16 at 11:00; Stop 01/18/16 at 11:01 ; Status DC Water (Free Water) 300 ml Q4HR TUBE Last administered on 01/19/16at 08:00; Start 01/18/16 at 12:00; Stop 01/19/16 at 10:43; Status DC Water (Free Water) 400 ml Q4HR TUBE Last administered on 01/19/16at 11:41; Start 01/19/16 at 12:00 Potassium Chloride (KCl 40 Meq/30 ml Liq) 40 meq ONCE ONCE NG Last administered on 01/19/16at 11:41; Start 01/19/16 at 11:00; Stop 01/19/16 at 11:01; Status DC A/P Assessment and Plan A/P (1) CVA (cerebral vascular accident); 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 Continue Keppra and coumadin neurology was reconsulted. Palliative care following. (2)fever- likely central- CXR and UA negative blood cultures negative and sputum culture with normal respiratory bharti- ID follow-up appreciated- continue to monitor temps- antipyretics as needed. (3) Acute respiratory failure Secondary to CVA, Status post tracheostomy. Continue bronchi dilators and pulmonary toilet Duonebs PRN Pulmonary consult appreciated (Dr. Brandon following) (4) acute renal failure/ hypernatremia/hypokalemia BUN/ Cr trending down-continue with IV fluid and water flush via PEG ; continue to monitor renal function and electrolytes- nephrology follow-up appreciated. will replace electrolytes as needed. renal sonogram with no hydronephrosis (5) A-fib continue lopressor - will monitor and adjust the regimen as needed. continue full anticoagulation with warfarin Echocardiogram completed in November shows preserved EF pharmacy consulted for coumadin dosing. (6) Non-Hodgkin lymphoma s/p brain biopsy on December 13, by Neurosurgery, Dr. Marin - Pathology consistent with acute infarct without evidence of lymphoma Seen by Oncology, Dr. Whyte, who has signed off for current admission as no active oncology issues (7) DM (diabetes mellitus) Patient with a hemoglobin A1c in November of above 7 continue Levemir with sliding scale- will monitor and adjust the regimen as needed. DVT prophylaxis with coumadin. Discharge Planning dc planning to SNF- Medardo Au MD Jan 19, 2016 12:34
[2016-01-19] MEDS: WARFARIN SOD 4 MG TAB PO SCH (17:38)
[2016-01-19] MEDS: INSULIN DETEMIR 100 UNITS/ML VIAL SQ SCH (20:33)
[2016-01-19] MEDS: ACETAMINOPHEN 650 MG/20.3 ML UDC TUBE PRN (20:52)
[2016-01-20] VITALS (11 sets, daily range): BP systolic 119–132; BP diastolic 60–80; PULSE 77–98; RESP 16–23; TEMP 98–100.2; O2SAT 93–100
[2016-01-20] MEDS: INSULIN ASPART SUPPLEMENTAL SCALE SQ SCH ×4 (00:56→17:13)
[2016-01-20] MEDS: SODIUM CHLORIDE 23.4% INJ 38.5 MEQ in WATER STERILE FOR INJ 1,000 ML IV SCH ×3 (02:15→21:56)
[2016-01-20] MEDS: FREE WATER TUBE SCH ×6 (04:00→20:00)
--- NOTE | 2016-01-20 07:55 | HHI.PR ---
Subjective Remarks in no acute distress. opens the eyes to calling his name. T max 100.2. Objective Vitals Vital Signs Date Time Temp Pulse Resp B/P Pulse Ox O2 Delivery O2 Flow Rate FiO2 01/20/16 05:20 97 T-piece 6.00 40 01/20/16 04:00 100.2 98 16 119/74 93 01/20/16 00:56 T-Piece 6.00 40 01/20/16 00:00 99.4 87 16 119/72 97 01/19/16 20:00 93 01/19/16 19:57 100 T-piece 6.00 40 01/19/16 16:41 99.8 85 16 112/69 100 01/19/16 12:00 99.8 93 14 115/70 96 01/19/16 10:07 97 T-Piece 40 01/19/16 08:36 96 40 01/19/16 08:00 97.2 105 14 116/78 96 01/19/16 07:59 103 I/O 01/19/16 01/19/16 01/19/16 01/20/16 01/20/16 01/20/16 07:00 15:00 23:00 07:00 15:00 23:00 Intake Total 1207 ml 0 ml 1041 ml Output Total 400 ml 850 ml 475 ml 400 ml Balance 807 ml -850 ml -475 ml 641 ml Intake Oral 0 ml 0 ml IV Total 575 ml 1041 ml Tube Feeding 632 ml Output Urine Total 400 ml 850 ml 475 ml 400 ml # Bowel Movements 0 Result Diagram: 01/16/16 0710 01/19/16 0730 Imaging Last Impressions Head Magnetic Resonance Angiography 01/16/16 0000 Signed Impressions: Service Date/Time: Saturday, January 16, 2016 20:05 - CONCLUSION: 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 Anterior circulation remains intact. Mikie Vargas MD Head CT 01/16/16 0000 Signed Impressions: Service Date/Time: Saturday, January 16, 2016 10:51 - CONCLUSION: No extensive low density in the brainstem colin more prominent in the right the left extending into the right middle cerebellar peduncle consistent with brainstem infarct nonhemorrhagic acute Wellington West MD Brain MRI 01/16/16 0000 Signed Impressions: Service Date/Time: Saturday, January 16, 2016 20:05 - CONCLUSION: Recent infarctions in both occipital lobes and left cerebellum. High flair abnormality within the colin but greater on the right where there is enhancement. This is likely related to progressive acute ischemic changes. Mikie Vargas MD Chest X-Ray 01/15/16 0000 Signed Impressions: Service Date/Time: Friday, January 15, 2016 12:09 - CONCLUSION: Underinflation with atelectasis at the lung bases. Otherwise, no acute cardiopulmonary abnormality is visualized. Glen Gordon MD Abdomen X-Ray 01/14/16 0000 Signed Impressions: Service Date/Time: Thursday, January 14, 2016 10:19 - CONCLUSION: Moderate stool; otherwise, negative. 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 No evidence of carotid stenosis. Glen Zamora MD Head/Brain Mag Res Venography 12/22/15 0000 Signed Impressions: Service Date/Time: Tuesday, December 22, 2015 09:22 - CONCLUSION: Normal MRV. Jonel Jones Jr., MD Objective Remarks GENERAL: on Trach- in no apparent distress. CARDIOVASCULAR: Regular rate and regular rhythm without murmurs, gallops, or rubs. RESPIRATORY: Clear to auscultation. Breath sounds equal bilaterally. No wheezes , rales, or rhonchi. GASTROINTESTINAL: Abdomen soft, non-tender,distended. hypoactive bowel sounds-PEG in place MUSCULOSKELETAL: Extremities without clubbing, cyanosis, or edema. NEURO: is more alert today-opens the eyes to calling his name Procedures PEG and trach Medications and IVs Current Medications IV Flush (NS Flush) 2 ml UNSCH PRN IVF FLUSH AFTER USING IV ACCESS Last administered on 01/15/16at 09:02; Start 12/21/15 at 06:00 Ondansetron HCl (Zofran Inj) 4 mg STK-MED ONCE .ROUTE ; Start 12/21/15 at 06:22; Stop 12/21/15 at 06:23; Status DC Ondansetron HCl (Zofran Inj) 4 mg ONCE ONCE IV PUSH Last administered on 06:43; Start 12/21/15 at 06:30; Stop 12/21/15 at 06:31; Status DC Diltiazem HCl 20 mg 20 mg ONCE ONCE IV Last administered on 12/21/15 06:42; Start 12/21/15 at 06:30; Stop 12/21/15 at 06:31; Status DC Diltiazem HCl/ Sodium Chloride (Cardizem Inj/NS Inj) 125 ml @ 0 mls/hr TITRATE IV Last administered on 12/21/15at 06:47; Start 12/21/15 at 06:30; Stop 12/21/15 at 13:00; Status DC Acetaminophen (Tylenol) 650 mg ONCE ONCE PO ; Start 12/21/15 at 06:45; Stop 12/20 at 06:46; Status DC Lorazepam (Ativan Inj) 1 mg ONCE ONCE IV PUSH Last administered on 12/21/15at 07 :22; Start 12/21/15 at 07:15; Stop 12/21/15 at 07:16; Status DC Etomidate (Amidate Inj) 40 mg STK-MED ONCE .ROUTE Last administered on 08:17; Start 12/21/15 at 07:37; Stop 12/21/15 at 07:38; Status DC Succinylcholine Chloride 200 mg 200 mg STK-MED ONCE .ROUTE Last administered on 12/21/15 08:18; Start 12/21/15 at 07:37; Stop 12/21/15 at 07:38; Status DC Propofol (Diprivan 1000 Mg/100ml Inj) 100 ml @ As Directed STK-MED ONCE .ROUTE Last administered on 12/21/15at 08:19; Start 12/21/15 at 07:46; Stop 12/21/15 at 07:47; Status DC Propofol (Diprivan 1000 Mg/100ml Inj) search Sets for Drip. NOW PRN IV SEDATION Last administered on 12/22/15 06:25; Start 12/21/15 at 08:30; Stop 12/28 at 15:43; Status DC Gadodiamide (Omniscan Pf Inj) 18 ml STK-MED ONCE IV Last administered on at 10:11; Start 12/21/15 at 10:11; Stop 12/21/15 at 10:12; Status DC Pantoprazole Sodium (Protonix Inj) 40 mg DAILY IV Last administered on at 07:39; Start 12/21/15 at 13:00; Stop 01/03/16 at 10:10; Status DC Albuterol/ Ipratropium (Duoneb Neb) 1 ampule Q6HR NEB INH Last administered on 12/25/15at 07:51; Start 12/21/15 at 13:00; Stop 12/25/15 at 13:00; Status DC Miscellaneous Information 1 [id number] Last administered on 12/21/15at 13:00; Start 12/21/15 at 13:00; Stop 01/12/16 at 11:47; Status DC Chlorhexidine Gluconate (Chlorhexidine 2% Cloth) 3 pack Taper DAILY@04 TOP Last administered on 01/11/16at 04:10; Start 12/22/15 at 04:00; Stop 01/12/16 at 11:47; Status DC Chlorhexidine Gluconate 3 pack 3 pack UNSCH PRN TOP HYGIENIC CARE; Start at 13:00; Stop 01/12/16 at 11:47; Status DC Sodium Chloride (NS 1000 ml Inj) 1,000 ml @ 75 mls/hr [id number] IV Last administered on 12/22/15at 17:00; Start 12/21/15 at 13:00; Stop 12/22/15 at 19:01; Status DC Dextrose (D50w (Vial) Inj) 25 ml UNSCH PRN IV PUSH HYPOGLYCEMIA-SEE COMMENTS; Start 12/21/15 at 13:00 Glucagon (Glucagon Inj) 1 mg UNSCH PRN OTHER HYPOGLYCEMIA-SEE COMMENTS; Start 12/21/15 at 13:00 Insulin Human Regular (NovoLIN R SUPPLEMENTAL SCALE) 1 Q6H SQ Last administered on 01/04/16at 06:31; Start 12/21/15 at 13:00; Stop 01/04/16 at 10:05 ; Status DC Levetriacetam (Keppra) 500 mg Q12HR PO Last administered on 12/27/15at 09:00; Start 12/21/15 at 13:45; Stop 12/27/15 at 09:44; Status DC Heparin Sodium (Porcine) (Heparin Inj) 5,000 units BID SQ Last administered on 12/22/15at 20:52; Start 12/21/15 at 21:00; Stop 12/23/15 at 08:32; Status DC Warfarin Sodium (Coumadin) 7.5 mg ONCE ONCE PO Last administered on 12/21/15 21:43; Start 12/21/15 at 21:00; Stop 12/21/15 at 21:01; Status DC Warfarin Sodium (Coumadin) 5 mg DAILY@16 PO Last administered on 12/23/15at 16:00 ; Start 12/22/15 at 16:00; Stop 12/26/15 at 09:29; Status DC Patient Medication Teaching (Coumadin Booklet) 1 ONCE ONCE XX Last administered on 12/21/15at 20:15; Start 12/21/15 at 20:15; Stop 12/21/15 at 20:16; Status DC Chlorhexidine Gluconate (Peridex 0.12% Liq) 15 ml BID@08,20 MT Last administered on 01/12/16at 08:00; Start 12/22/15 at 20:00; Stop 01/12/16 at 11:47 ; Status DC Gadodiamide 20 ml 20 ml STK-MED ONCE IV Last administered on 12/22/15at 09:55; Start 12/22/15 at 09:55; Stop 12/22/15 at 09:56; Status DC Pharmacy Profile Note ml @ 0 mls/hr UNSCH OTHER ; Start 12/22/15 at 11:00; Stop 12/22/15 at 19:43; Status DC Sodium Chloride 1,000 ml @ 50 mls/hr Q20H IV Last administered on 12/24/15at 20: 02; Start 12/22/15 at 18:44; Stop 12/25/15 at 11:52; Status DC Pharmacy Profile Note (Coumadin Consult Pharmacy) 0 ml @ 0 mls/hr UNSCH OTHER ; Start 12/22/15 at 19:45; Stop 01/04/16 at 12:25; Status DC Acetaminophen 650 mg 650 mg Q6H PRN PO TEMP > 100 Last administered on at 13:24; Start 12/23/15 at 02:45; Stop 12/30/15 at 15:04; Status DC Potassium Chloride 100 ml @ 50 mls/hr Q2H PRN IV For Potassium 2.8 - 3.2 mEq/L ; Start 12/23/15 at 08:30; Stop 01/09/16 at 11:14; Status DC Potassium Chloride (KCl 20 Meq Premix Inj) 100 ml @ 50 mls/hr Q2H PRN IV For Potassium 2.8 - 3.2 mEq/L; Start 12/23/15 at 08:30; Stop 01/09/16 at 11:14; Status DC Potassium Chloride 40 meq 40 meq UNSCH PRN PO/TUBE For Potassium 3.3 - 3.5 mEq/ L; Start 12/23/15 at 08:30; Stop 01/09/16 at 11:14; Status DC Potassium Chloride 100 ml @ 25 mls/hr UNSCH PRN IV For Potassium 3.3 - 3.5 mEq /L; Start 12/23/15 at 08:30; Stop 01/09/16 at 11:14; Status DC Potassium Chloride 100 ml @ 50 mls/hr Q2H PRN IV For Potassium 3.3 - 3.5 mEq/L ; Start 12/23/15 at 08:30; Stop 01/09/16 at 11:14; Status DC Magnesium Sulfate/ Sodium Chloride (Magnesium Sulfate Inj/NS Inj) 100 ml @ 50 mls/hr UNSCH PRN IV For Magnesium 0.9 - 1.1 mg/dL; Start 12/23/15 at 08:30; Stop 01/09/16 at 11:14; Status DC Magnesium Oxide 800 mg 800 mg UNSCH PRN PO For Magnesium 1.2 - 1.6 mg/dL; Start 12/23/15 at 08:30; Stop 01/09/16 at 11:14; Status DC Magnesium Sulfate/ Sodium Chloride (Magnesium Sulfate Inj/NS Inj) 100 ml @ 50 mls/hr UNSCH PRN IV For Magnesium 1.2 - 1.6 mg/dL; Start 12/23/15 at 08:30; Stop 01/09/16 at 11:14; Status DC Potassium Phosphate 2000 mg 2,000 mg Q4H PRN PO For Phosphorus < 2.5 mg/dL; Start 12/23/15 at 08:30; Stop 01/09/16 at 11:14; Status DC Sodium Phosphate/ Sodium Chloride (Sodium Phosphate Inj/NS 250 ml Inj) 250 ml @ 42 mls/hr UNSCH PRN IV For Phosphorus < 2.5 mg/dL; Start 12/23/15 at 08:30; Stop 01/09/16 at 11:14; Status DC Potassium Chloride (KCl 40 Meq/30 ml Liq) 40 meq UNSCH PRN PO/TUBE SEE LABEL COMMENTS; Start 12/23/15 at 08:30; Stop 01/09/16 at 11:14; Status DC Potassium Phosphate 2000 mg 2,000 mg UNSCH PRN PO/TUBE SEE LABEL COMMENTS; Start 12/23/15 at 08:30; Stop 01/09/16 at 11:14; Status DC Potassium Phosphate 30 mmol/ Sodium Chloride 260 ml @ 42 mls/hr UNSCH PRN IV SEE LABEL COMMENTS; Start 12/23/15 at 08:30; Stop 01/09/16 at 11:14; Status DC Sodium Chloride 1,000 ml @ 75 mls/hr [id number] IV ; Start 12/23/15 at 08:30; Stop 12/23/15 at 08:30; Status DC Piperacillin Sod/ Tazobactam Sod 50 ml @ 100 mls/hr Q6H IV Last administered on 12/30/15at 10:02; Start 12/23/15 at 10:00; Stop 12/30/15 at 14:50; Status DC Vancomycin HCl/ Sodium Chloride (Vancomycin Inj/ NS 250 ml Inj) 250 ml @ 250 mls/hr Q12H IV Last administered on 12/29/15at 09:01; Start 12/24/15 at 08:45; Stop 12/29/15 at 15:33; Status DC Warfarin Sodium (Coumadin) 4 mg DAILY@16 PO Last administered on 12/28/15at 16:00 ; Start 12/26/15 at 16:00; Stop 01/04/16 at 12:25; Status DC Levetriacetam (Keppra Liq) 500 mg Q12HR TUBE Last administered on 01/19/16at 20: 32; Start 12/27/15 at 21:00 Docusate Sodium (Colace Liq) 100 mg Q12HR TUBE Last administered on 01/15/16at 09:01; Start 12/27/15 at 21:00; Status Hold Sennosides (Senna Liq) 8.8 mg DAILY TUBE Last administered on 01/15/16at 09:01 ; Start 12/27/15 at 17:00; Stop 01/15/16 at 20:37; Status DC Bisacodyl (Dulcolax Supp) 10 mg ONCE ONCE RECTAL ; Start 12/27/15 at 16:15; Stop 12/27/15 at 16:15; Status DC Albuterol/ Ipratropium (Duoneb Neb) 1 ampule Q4HR NEB PRN NEB RESPIRATORY DISTRESS Last administered on 12/29/15at 12:17; Start 12/27/15 at 22:00; Stop at 08:16; Status DC Bisacodyl (Dulcolax Supp) 10 mg ONCE ONCE RECTAL ; Start 12/28/15 at 12:00; Stop 12/28/15 at 12:01; Status DC Sodium Chloride (Sodium Chloride) 1 gm BID TUBE Last administered on 12/29/15at 09:02; Start 12/28/15 at 21:00; Stop 12/29/15 at 15:43; Status DC Lactulose (Lactulose Liq) 30 ml DAILY TUBE Last administered on 12/29/15at 09:02 ; Start 12/28/15 at 20:30; Stop 12/29/15 at 15:43; Status DC Levofloxacin (Levaquin) 750 mg DAILY@16 TUBE ; Start 12/29/15 at 16:00; Stop 05/05 at 16:00; Status DC Sodium Chloride (Sodium Chloride) 1 gm DAILY TUBE Last administered on at 07:29; Start 12/30/15 at 09:00; Stop 12/31/15 at 14:08; Status DC Water 200 ml 200 ml Q6HR G-TUBE Last administered on 12/31/15at 04:19; Start 06/05 at 14:45; Stop 12/31/15 at 07:31; Status DC Ceftriaxone Sodium/Sodium Chloride (Rocephin Inj/NS Inj) 100 ml @ 200 mls/hr Q12H IV Last administered on 01/03/16at 02:47; Start 12/30/15 at 15:00; Stop at 10:09; Status DC Acetaminophen (Tylenol 650 Mg/ 20 ml Liq) 650 mg Q6H PRN TUBE TEMP >100.4 Last administered on 01/19/16at 20:52; Start 12/30/15 at 15:15 Lactobacillus Acidophilus (Lactinex Pkt) 1 gm BID TUBE Last administered on 01/18at 20:32; Start 12/30/15 at 21:00 Enoxaparin Sodium (Lovenox Inj) 90 mg Q12H SQ Last administered on 01/01/16at 21 :57; Start 12/31/15 at 08:00; Stop 01/03/16 at 10:33; Status DC Water (Free Water) 100 ml Q12H G-TUBE ; Start 12/31/15 at 18:00; Stop 12/31/15 at 18:00; Status DC Acetaminophen/ Hydrocodone Bitart ([place] 5-325 Mg) 1 tab Q6H PRN PO PAIN Last administered on 01/16/16at 02:45; Start 12/31/15 at 15:00 Fentanyl Citrate (Sublimaze Inj) 25 mcg Q1H PRN IV PUSH BREAKTHROUGH PAIN; Start 12/31/15 at 15:00 Water (Free Water) 200 ml Q8H G-TUBE Last administered on 01/01/16at 17:55; Start 12/31/15 at 18:00; Stop 01/02/16 at 09:56; Status DC Sodium Chloride (Sodium Chloride) 1 gm BID TUBE Last administered on 01/03/16at 07:39; Start 12/31/15 at 21:00; Stop 01/03/16 at 09:08; Status DC Miscellaneous Information Hold Anticoagulation after midni... ONCE ONCE OTHER ; Start 01/01/16 at 10:15; Stop 01/01/16 at 10:29; Status DC Sodium Chloride (NS 1000 ml Inj) 1,000 ml @ 50 mls/hr Q20H IV Last administered on 01/02/16at 12:26; Start 01/01/16 at 18:00; Stop 01/03/16 at 10:07 ; Status DC Midazolam HCl (Versed Inj) 5 mg STK-MED ONCE .ROUTE ; Start 01/02/16 at 12:47; Stop 01/02/16 at 12:48; Status DC Vecuronium [place] (Norcuron 10 Mg Inj) 10 mg STK-MED ONCE .ROUTE ; Start at 12:47; Stop 01/02/16 at 12:48; Status DC Fentanyl Citrate (Sublimaze Inj) 250 mcg ONCE ONCE IV PUSH Last administered on 01/02/16at 15:00; Start 01/02/16 at 15:00; Stop 01/02/16 at 15:01; Status DC Midazolam HCl (Versed Inj) 10 mg ONCE ONCE IV PUSH Last administered on at 15:00; Start 01/02/16 at 15:00; Stop 01/02/16 at 15:01; Status DC Rocuronium [place] (Zemuron Inj) 100 mg BOLUS ONCE IV Last administered on at 15:00; Start 01/02/16 at 15:00; Stop 01/02/16 at 15:01; Status DC Ketamine HCl (Ketalar Inj) 500 mg STK-MED ONCE .ROUTE ; Start 01/02/16 at 14:30 ; Stop 01/02/16 at 14:31; Status DC Propofol 230 mg 230 mg STK-MED ONCE IV ; Start 01/02/16 at 16:51; Stop 01/02/16 at 16:52; Status DC Sodium Chloride (NS 1000 ml Inj) 1,000 ml @ 0 mls/hr Q0M IV ; Start 01/03/16 at 10:15; Stop 01/17/16 at 17:30; Status DC Ranitidine HCl (Zantac Liq) 150 mg Q12HR PO Last administered on 01/17/16at 07: 39; Start 01/04/16 at 09:00; Stop 01/17/16 at 15:23; Status DC Enoxaparin Sodium 90 mg 90 mg Q12HR SQ Last administered on 01/11/16at 10:01; Start 01/04/16 at 09:00; Stop 01/11/16 at 12:35; Status DC Sodium Chloride (NS 500 ml Inj) 500 ml @ 0 mls/hr BOLUS ONCE IV Last administered on 01/03/16at 22:57; Start 01/03/16 at 23:00; Stop 01/03/16 at 23:01 ; Status DC Insulin Aspart (NovoLOG SUPPLEMENTAL SCALE) 1 Q6HR SQ Last administered on at 06:17; Start 01/04/16 at 12:00 Potassium Chloride (KCl 40 Meq/30 ml Liq) 40 meq Q4H NG Last administered on at 16:21; Start 01/04/16 at 13:00; Stop 01/04/16 at 17:01; Status DC Warfarin Sodium 5 mg 5 mg DAILY@1600 PO Last administered on 01/09/16at 17:21; Start 01/04/16 at 16:00; Stop 01/10/16 at 10:06; Status DC Pharmacy Profile Note (Coumadin Consult Pharmacy) 0 ml @ 0 mls/hr UNSCH XX ; Start 01/04/16 at 12:30 Insulin Detemir (Levemir Inj) 10 units Q12HR SQ Last administered on 01/05/16at 08:00; Start 01/04/16 at 21:00; Stop 01/05/16 at 08:42; Status DC Insulin Detemir (Levemir Inj) 5 units NOW ONCE SQ Last administered on at 13:28; Start 01/04/16 at 12:45; Stop 01/04/16 at 12:46; Status DC Albuterol/ Ipratropium (Duoneb Neb) 1 ampule Q4HR NEB PRN NEB dyspnea Last administered on 01/10/16at 08:51; Start 01/07/16 at 08:15 Warfarin Sodium (Coumadin) 7.5 mg ONCE ONCE PO Last administered on 01/07/16at 16:40; Start 01/07/16 at 16:00; Stop 01/07/16 at 16:01; Status DC Nystatin (Mycostatin Powder) 1 applic Q12HR TOPICAL Last administered on at 20:33; Start 01/08/16 at 21:00 Ipratropium [place] (Atrovent Neb) 0.5 mg TID NEB NEB Last administered on 01/18at 19:57; Start 01/08/16 at 20:00 Warfarin Sodium (Coumadin) 5 mg DAILY@1600 PO Last administered on 01/11/16at 14 :26; Start 01/11/16 at 16:00; Stop 01/12/16 at 09:45; Status DC Warfarin Sodium (Coumadin) 6 mg ONCE PO Last administered on 01/10/16at 17:10; Start 01/10/16 at 16:00; Stop 01/10/16 at 21:00; Status DC Metoprolol Tartrate (Lopressor) 50 mg Q12HR GT Last administered on 01/11/16at 10:02; Start 01/10/16 at 11:00; Stop 01/11/16 at 12:30; Status DC Metoprolol Tartrate (Lopressor) 50 mg TID GT Last administered on 01/14/16at 08: 24; Start 01/11/16 at 13:00; Stop 01/14/16 at 08:28; Status DC Insulin Detemir (Levemir Inj) 10 units HS SQ Last administered on 01/11/16at 22: 23; Start 01/11/16 at 21:00; Stop 01/12/16 at 11:47; Status DC Warfarin Sodium (Coumadin) 4 mg DAILY@16 PO ; Start 01/12/16 at 16:00; Stop at 16:00; Status DC Insulin Detemir (Levemir Inj) 20 units HS SQ Last administered on 01/13/16at 20: 26; Start 01/12/16 at 21:00; Stop 01/14/16 at 08:28; Status DC Warfarin Sodium (Coumadin) 2 mg DAILY@16 PO Last administered on 01/13/16at 17: 05; Start 01/12/16 at 16:00; Stop 01/14/16 at 11:23; Status DC Insulin Detemir (Levemir Inj) 22 units HS SQ Last administered on 01/14/16at 21: 37; Start 01/14/16 at 21:00; Stop 01/15/16 at 10:06; Status DC Metoprolol Tartrate (Lopressor) 75 mg TID GT Last administered on 01/19/16at 17: 38; Start 01/14/16 at 09:00 Miscellaneous (Pill Splitter) 1 ea UNSCH PRN OTHER SEE LABEL COMMENTS; Start at 08:30 Warfarin Sodium (Coumadin) 4 mg DAILY@1600 PO Last administered on 01/19/16at 17: 38; Start 01/14/16 at 16:00 Patient Medication Teaching (Coumadin Booklet) 1 ONCE ONCE XX ; Start 01/14/16 at 16:00; Stop 01/14/16 at 16:01; Status DC Insulin Detemir (Levemir Inj) 24 units HS SQ Last administered on 01/19/16at 20: 33; Start 01/15/16 at 21:00 Citalopram Hydrobromide (CeleXA) 20 mg DAILY PEG Last administered on at 08:01; Start 01/16/16 at 09:00; Stop 01/16/16 at 09:41; Status DC Sennosides (Senna Liq) 8.8 mg BID TUBE Last administered on 01/19/16at 20:32; Start 01/15/16 at 21:00 Gadodiamide 18 ml 18 ml STK-MED ONCE IV ; Start 01/16/16 at 20:40; Stop at 20:41; Status DC Sodium Chloride (NS 1000 ml Inj) 1,000 ml @ 125 mls/hr Q8H IV Last administered on 01/17/16at 15:11; Start 01/17/16 at 15:00; Stop 01/17/16 at 17:31 ; Status DC Ranitidine HCl 150 mg 150 mg Q24H PO Last administered on 01/19/16at 08:54; Start 01/18/16 at 09:00 Sodium Chloride 1,000 ml @ 75 mls/hr [id number] IV Last administered on at 05:22; Start 01/17/16 at 18:00; Stop 01/18/16 at 09:28; Status DC Sodium Chloride/ Sterile Water (Sodium Chloride 23.4% Inj/Sterile Water For Inj ) 1,009.625 ml @ 60 mls/hr [id number] IV Last administered on 01/20/16at 02:15; Start 01/18/16 at 11:00 Potassium Chloride (KCl) 40 meq ONCE ONCE PO ; Start 01/18/16 at 09:30; Stop at 09:31; Status DC Potassium Chloride (KCl 40 Meq/30 ml Liq) 40 meq ONCE ONCE TUBE Last administered on 01/18/16at 11:08; Start 01/18/16 at 11:00; Stop 01/18/16 at 11:01 ; Status DC Water (Free Water) 300 ml Q4HR TUBE Last administered on 01/19/16at 08:00; Start 01/18/16 at 12:00; Stop 01/19/16 at 10:43; Status DC Water (Free Water) 400 ml Q4HR TUBE Last administered on 01/20/16at 04:00; Start 01/19/16 at 12:00 Potassium Chloride (KCl 40 Meq/30 ml Liq) 40 meq ONCE ONCE NG Last administered on 01/19/16at 11:41; Start 01/19/16 at 11:00; Stop 01/19/16 at 11:01; Status DC A/P Assessment and Plan A/P (1) CVA (cerebral vascular accident); 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 Continue Keppra and coumadin- neurology was reconsulted. Palliative care following. (2)fever- likely central- CXR and UA negative blood cultures negative and sputum culture with normal respiratory bharti- ID follow-up appreciated- continue to monitor temps- antipyretics as needed. (3) Acute respiratory failure Secondary to CVA, Status post tracheostomy. Continue bronchi dilators and pulmonary toilet Duonebs PRN Pulmonary consult appreciated (Dr. Brandon following) (4) acute renal failure/ hypernatremia/hypokalemia BUN/ Cr trending down-continue with IV fluid and water flush via PEG ; continue to monitor renal function and electrolytes will replace electrolytes as needed. renal sonogram with no hydronephrosis nephrology following. (5) A-fib continue lopressor - will monitor and adjust the regimen as needed. continue full anticoagulation with warfarin Echocardiogram completed in November shows preserved EF pharmacy consulted for coumadin dosing. (6) Non-Hodgkin lymphoma s/p brain biopsy on December 13, by Neurosurgery, Dr. Marin - Pathology consistent with acute infarct without evidence of lymphoma Seen by Oncology, Dr. Whyte, who has signed off for current admission as no active oncology issues (7) DM (diabetes mellitus) Patient with a hemoglobin A1c in November of above 7 continue Levemir with sliding scale- will monitor and adjust the regimen as needed. DVT prophylaxis with coumadin. Discharge Planning dc planning to SNF-no funding- SSI pending. Medardo Au MD Jan 20, 2016 07:55
[2016-01-20] MEDS: NYSTATIN 100,000 U/GM PWD 15 GM BTL TOPICAL SCH ×2 (09:00→21:42)
[2016-01-20] MEDS: levETIRAcetam 500 MG/5 ML UDC TUBE SCH ×2 (09:23→21:41)
[2016-01-20] MEDS: SENNOSIDES SYRUP 8.8 MG/5 ML CUP TUBE SCH ×2 (09:23→21:41)
[2016-01-20] MEDS: RANITIDINE HCL SYRUP 150 MG/10 ML UDC PO SCH (09:23)
[2016-01-20] MEDS: METOPROLOL TARTRATE 50 MG TAB GT SCH ×3 (09:24→17:13)
[2016-01-20] MEDS: LACTOBACILLUS ACIDOPHILUS 1 GM PACKET TUBE SCH ×2 (09:24→21:00)
[2016-01-20] MEDS: RESP: IPRATROPIUM 0.5 MG/2.5 ML NEB NEB SCH ×3 (09:41→19:54)
--- NOTE | 2016-01-20 12:11 | HHI.NPPN ---
Subjective Renal Failure: Acute Interval History no changes. Family at the bedside. Review of Systems General General Remarks unable to evaluate ROS 2' to clinical condition of the pt Objective Data Data 01/19/16 01/20/16 19:00 07:00 Intake Total 1041 ml Output Total 850 ml 875 ml Balance -850 ml 166 ml Intake Oral 0 ml IV Total 1041 ml Output Urine Total 850 ml 875 ml # Bowel Movements 0 Vital Signs Date Time Temp Pulse Resp B/P Pulse Ox O2 Delivery O2 Flow Rate FiO2 01/20/16 09:51 95 T-piece 40 01/20/16 08:03 98.6 90 23 128/73 95 01/20/16 05:20 97 T-piece 6.00 40 01/20/16 04:00 100.2 98 16 119/74 93 01/20/16 00:56 T-Piece 6.00 40 01/20/16 00:00 99.4 87 16 119/72 97 01/19/16 20:00 93 01/19/16 19:57 100 T-piece 6.00 40 01/19/16 16:41 99.8 85 16 112/69 100 -: 01/16/16 0710 01/19/16 0730 Tubes & Lines: [place] Tubes & Lines Comment PEG Drip Comment 07/24 NS Physical Exam General Appearance: Well Developed, Sleeping Eyes Eye Exam: Pupils Equal Throat Throat Exam: Oral Mucosa [place] & Moist Pulmonary Resp Exam: Clear Bilaterally, Breath Sounds Equal, Decreased Bases, Diminished Breath Sounds Gastrointestinal/Abdomen GI Exam: Soft, Non-Tender Genitourinary Exam: Clear Urine Musculoskeletal MS Exam: Joints Intact Integumentary Skin Exam: Clear, Warm, Dry, Intact Extremeties Extremities Exam: No Edema, Pedal Pulses Palpable VTE Prophylaxis Device: SCDs Assessment/Plan Discussed Condition With: Patient, Parent, Spouse, Daughter, Relative Assessment Summary: CAREN/Acute Renal Failure Problem List: (1) Acute renal failure Plan: In a patient with no history of renal disorder and normal renal function as of 01/09 This appears to be due to urinary retention, possibly due to BPH Creatinine has improved, excellent UOP. Renal function panel ordered, but pending. K low, replacement ordered No acid-base abnormalities continue IVF, /4 NS. May change to 1/2NS at a higher rate if no improvement in hypernatremia is seen. ly (2) Hypernatremia Plan: due to excessive sensible and insensible fluid losses. IVF is 1/4 NS free water flushes with tube feedings Q4h, increased to 400 ml monitor BMP (3) DM (diabetes mellitus) Plan: monitor BG insulin as needed. Hyperglycemia should be prevented as it will lead to osmotic diuresis and worsening of hypernatremia. Plan . Josef Rodriges MD Jan 20, 2016 12:11
[2016-01-20 12:48] LABS: INTERNATIONAL NORMALIZED RATIO 2.7 RATIO
[2016-01-20 13:06] LABS: BICARBONATE 27.3 MEQ/L (21.0-32.0); POTASSIUM 3.2 MEQ/L (3.5-5.1)
[2016-01-20] MEDS: WARFARIN SOD 4 MG TAB PO SCH (17:12)
[2016-01-20] MEDS: INSULIN DETEMIR 100 UNITS/ML VIAL SQ SCH (21:41)
[2016-01-20] MEDS: SODIUM CHLORIDE 0.9% FLUSH 5 ML FLUSH IVF PRN (21:42)
[2016-01-21] VITALS (9 sets, daily range): BP systolic 118–130; BP diastolic 69–79; PULSE 77–99; RESP 18–21; TEMP 97–100; O2SAT 97–99
[2016-01-21] MEDS: FREE WATER TUBE SCH ×6 (03:02→22:44)
[2016-01-21] MEDS: INSULIN ASPART SUPPLEMENTAL SCALE SQ SCH ×5 (06:42→23:00)
[2016-01-21] MEDS: METOPROLOL TARTRATE 50 MG TAB GT SCH ×3 (08:13→16:51)
[2016-01-21] MEDS: SENNOSIDES SYRUP 8.8 MG/5 ML CUP TUBE SCH ×2 (08:13→22:44)
[2016-01-21] MEDS: RANITIDINE HCL SYRUP 150 MG/10 ML UDC PO SCH (08:13)
[2016-01-21] MEDS: levETIRAcetam 500 MG/5 ML UDC TUBE SCH ×2 (08:13→22:44)
[2016-01-21] MEDS: LACTOBACILLUS ACIDOPHILUS 1 GM PACKET TUBE SCH ×2 (08:16→22:44)
[2016-01-21] MEDS: NYSTATIN 100,000 U/GM PWD 15 GM BTL TOPICAL SCH ×2 (08:30→22:46)
[2016-01-21] MEDS: RESP: IPRATROPIUM 0.5 MG/2.5 ML NEB NEB SCH ×3 (08:31→19:55)
[2016-01-21 09:54] LABS: INTERNATIONAL NORMALIZED RATIO 2.7 RATIO; PROTHROMBIN TIME - PATIENT 29.4 SEC (9.8-11.4)
[2016-01-21 10:10] LABS: BICARBONATE 27.8 MEQ/L (21.0-32.0)
--- NOTE | 2016-01-21 10:30 | HHI.PR ---
Subjective Remarks in no acute distress.Tmax 100. good urine output. Objective Vitals Vital Signs Date Time Temp Pulse Resp B/P Pulse Ox O2 Delivery O2 Flow Rate FiO2 01/21/16 08:33 98 T-piece 40 01/21/16 08:00 100.0 99 20 130/74 97 01/21/16 05:00 97.0 80 21 130/76 98 01/21/16 00:00 97.0 80 20 128/78 99 01/20/16 20:30 98.7 82 17 132/80 100 01/20/16 20:02 97 T-piece 40 01/20/16 18:34 77 01/20/16 17:57 T-piece 40 01/20/16 16:00 98.9 84 22 119/60 98 01/20/16 12:00 98.0 84 22 130/73 98 I/O 01/20/16 01/20/16 01/20/16 01/21/16 01/21/16 01/21/16 07:00 15:00 23:00 07:00 15:00 23:00 Intake Total 1041 ml 0 ml 2550 ml Output Total 400 ml 750 ml 400 ml 800 ml Balance 641 ml -750 ml -400 ml 1750 ml Intake Oral 0 ml 0 ml 0 ml IV Total 1041 ml 1200 ml Tube Feeding 550 ml Tube Irrigant 800 ml Output Urine Total 400 ml 750 ml 400 ml 800 ml # Bowel Movements 1 0 0 Result Diagram: 01/21/16 0850 Imaging Last Impressions Head Magnetic Resonance Angiography 01/16/16 0000 Signed Impressions: Service Date/Time: Saturday, January 16, 2016 20:05 - CONCLUSION: 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 Anterior circulation remains intact. Mikie Vargas MD Head CT 01/16/16 0000 Signed Impressions: Service Date/Time: Saturday, January 16, 2016 10:51 - CONCLUSION: No extensive low density in the brainstem colin more prominent in the right the left extending into the right middle cerebellar peduncle consistent with brainstem infarct nonhemorrhagic acute Wellington West MD Brain MRI 01/16/16 0000 Signed Impressions: Service Date/Time: Saturday, January 16, 2016 20:05 - CONCLUSION: Recent infarctions in both occipital lobes and left cerebellum. High flair abnormality within the colin but greater on the right where there is enhancement. This is likely related to progressive acute ischemic changes. Mikie Vargas MD Chest X-Ray 01/15/16 0000 Signed Impressions: Service Date/Time: Friday, January 15, 2016 12:09 - CONCLUSION: Underinflation with atelectasis at the lung bases. Otherwise, no acute cardiopulmonary abnormality is visualized. Glen Gordon MD Abdomen X-Ray 01/14/16 0000 Signed Impressions: Service Date/Time: Thursday, January 14, 2016 10:19 - CONCLUSION: Moderate stool; otherwise, negative. 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 No evidence of carotid stenosis. Glen Zamora MD Head/Brain Mag Res Venography 12/22/15 0000 Signed Impressions: Service Date/Time: Tuesday, December 22, 2015 09:22 - CONCLUSION: Normal MRV. Jonel Jones Jr., MD Objective Remarks GENERAL: on Trach- in no apparent distress. Neck; trach in place CARDIOVASCULAR: Regular rate and regular rhythm without murmurs, gallops, or rubs. RESPIRATORY: Clear to auscultation. Breath sounds equal bilaterally. No wheezes , rales, or rhonchi. GASTROINTESTINAL: Abdomen soft, non-tender,distended. hypoactive bowel sounds-PEG in place MUSCULOSKELETAL: Extremities without clubbing, cyanosis, or edema. NEURO: opens the eyes to verbal stimuli Procedures PEG and trach Medications and IVs Current Medications IV Flush (NS Flush) 2 ml UNSCH PRN IVF FLUSH AFTER USING IV ACCESS Last administered on 01/20/16at 21:42; Start 12/21/15 at 06:00 Ondansetron HCl (Zofran Inj) 4 mg STK-MED ONCE .ROUTE ; Start 12/21/15 at 06:22; Stop 12/21/15 at 06:23; Status DC Ondansetron HCl (Zofran Inj) 4 mg ONCE ONCE IV PUSH Last administered on at 06:43; Start 12/21/15 at 06:30; Stop 12/21/15 at 06:31; Status DC Diltiazem HCl 20 mg 20 mg ONCE ONCE IV Last administered on 12/21/15at 06:42; Start 12/21/15 at 06:30; Stop 12/21/15 at 06:31; Status DC Diltiazem HCl/ Sodium Chloride (Cardizem Inj/NS Inj) 125 ml @ 0 mls/hr TITRATE IV Last administered on 12/21/15at 06:47; Start 12/21/15 at 06:30; Stop 12/21/15 at 13:00; Status DC Acetaminophen (Tylenol) 650 mg ONCE ONCE PO ; Start 12/21/15 at 06:45; Stop 12/20 at 06:46; Status DC Lorazepam (Ativan Inj) 1 mg ONCE ONCE IV PUSH Last administered on 12/21/15at 07 :22; Start 12/21/15 at 07:15; Stop 12/21/15 at 07:16; Status DC Etomidate (Amidate Inj) 40 mg STK-MED ONCE .ROUTE Last administered on at 08:17; Start 12/21/15 at 07:37; Stop 12/21/15 at 07:38; Status DC Succinylcholine Chloride 200 mg 200 mg STK-MED ONCE .ROUTE Last administered on 12/21/15at 08:18; Start 12/21/15 at 07:37; Stop 12/21/15 at 07:38; Status DC Propofol (Diprivan 1000 Mg/100ml Inj) 100 ml @ As Directed STK-MED ONCE .ROUTE Last administered on 12/21/15at 08:19; Start 12/21/15 at 07:46; Stop 12/21/15 at 07:47; Status DC Propofol (Diprivan 1000 Mg/100ml Inj) search Sets for Drip. NOW PRN IV SEDATION Last administered on 12/22/15at 06:25; Start 12/21/15 at 08:30; Stop 12/28 at 15:43; Status DC Gadodiamide (Omniscan Pf Inj) 18 ml STK-MED ONCE IV Last administered on at 10:11; Start 12/21/15 at 10:11; Stop 12/21/15 at 10:12; Status DC Pantoprazole Sodium (Protonix Inj) 40 mg DAILY IV Last administered on at 07:39; Start 12/21/15 at 13:00; Stop 01/03/16 at 10:10; Status DC Albuterol/ Ipratropium (Duoneb Neb) 1 ampule Q6HR NEB INH Last administered on 12/25/15at 07:51; Start 12/21/15 at 13:00; Stop 12/25/15 at 13:00; Status DC Miscellaneous Information 1 [id number] Last administered on 12/21/15at 13:00; Start 12/21/15 at 13:00; Stop 01/12/16 at 11:47; Status DC Chlorhexidine Gluconate (Chlorhexidine 2% Cloth) 3 pack Taper DAILY@04 TOP Last administered on 01/11/16at 04:10; Start 12/22/15 at 04:00; Stop 01/12/16 at 11:47; Status DC Chlorhexidine Gluconate 3 pack 3 pack UNSCH PRN TOP HYGIENIC CARE; Start at 13:00; Stop 01/12/16 at 11:47; Status DC Sodium Chloride (NS 1000 ml Inj) 1,000 ml @ 75 mls/hr [id number] IV Last administered on 12/22/15at 17:00; Start 12/21/15 at 13:00; Stop 12/22/15 at 19:01; Status DC Dextrose (D50w (Vial) Inj) 25 ml UNSCH PRN IV PUSH HYPOGLYCEMIA-SEE COMMENTS; Start 12/21/15 at 13:00 Glucagon (Glucagon Inj) 1 mg UNSCH PRN OTHER HYPOGLYCEMIA-SEE COMMENTS; Start 12/21/15 at 13:00 Insulin Human Regular (NovoLIN R SUPPLEMENTAL SCALE) 1 Q6H SQ Last administered on 01/04/16at 06:31; Start 12/21/15 at 13:00; Stop 01/04/16 at 10:05 ; Status DC Levetriacetam (Keppra) 500 mg Q12HR PO Last administered on 12/27/15at 09:00; Start 12/21/15 at 13:45; Stop 12/27/15 at 09:44; Status DC Heparin Sodium (Porcine) (Heparin Inj) 5,000 units BID SQ Last administered on 12/22/15at 20:52; Start 12/21/15 at 21:00; Stop 12/23/15 at 08:32; Status DC Warfarin Sodium (Coumadin) 7.5 mg ONCE ONCE PO Last administered on 12/21/15at 21:43; Start 12/21/15 at 21:00; Stop 12/21/15 at 21:01; Status DC Warfarin Sodium (Coumadin) 5 mg DAILY@16 PO Last administered on 12/23/15at 16:00 ; Start 12/22/15 at 16:00; Stop 12/26/15 at 09:29; Status DC Patient Medication Teaching (Coumadin Booklet) 1 ONCE ONCE XX Last administered on 12/21/15at 20:15; Start 12/21/15 at 20:15; Stop 12/21/15 at 20:16; Status DC Chlorhexidine Gluconate (Peridex 0.12% Liq) 15 ml BID@08,20 MT Last administered on 01/12/16at 08:00; Start 12/22/15 at 20:00; Stop 01/12/16 at 11:47 ; Status DC Gadodiamide 20 ml 20 ml STK-MED ONCE IV Last administered on 12/22/15at 09:55; Start 12/22/15 at 09:55; Stop 12/22/15 at 09:56; Status DC Pharmacy Profile Note ml @ 0 mls/hr UNSCH OTHER ; Start 12/22/15 at 11:00; Stop 12/22/15 at 19:43; Status DC Sodium Chloride 1,000 ml @ 50 mls/hr Q20H IV Last administered on 12/24/15at 20: 02; Start 12/22/15 at 18:44; Stop 12/25/15 at 11:52; Status DC Pharmacy Profile Note (Coumadin Consult Pharmacy) 0 ml @ 0 mls/hr UNSCH OTHER ; Start 12/22/15 at 19:45; Stop 01/04/16 at 12:25; Status DC Acetaminophen 650 mg 650 mg Q6H PRN PO TEMP > 100 Last administered on at 13:24; Start 12/23/15 at 02:45; Stop 12/30/15 at 15:04; Status DC Potassium Chloride 100 ml @ 50 mls/hr Q2H PRN IV For Potassium 2.8 - 3.2 mEq/L ; Start 12/23/15 at 08:30; Stop 01/09/16 at 11:14; Status DC Potassium Chloride (KCl 20 Meq Premix Inj) 100 ml @ 50 mls/hr Q2H PRN IV For Potassium 2.8 - 3.2 mEq/L; Start 12/23/15 at 08:30; Stop 01/09/16 at 11:14; Status DC Potassium Chloride 40 meq 40 meq UNSCH PRN PO/TUBE For Potassium 3.3 - 3.5 mEq/ L; Start 12/23/15 at 08:30; Stop 01/09/16 at 11:14; Status DC Potassium Chloride 100 ml @ 25 mls/hr UNSCH PRN IV For Potassium 3.3 - 3.5 mEq /L; Start 12/23/15 at 08:30; Stop 01/09/16 at 11:14; Status DC Potassium Chloride 100 ml @ 50 mls/hr Q2H PRN IV For Potassium 3.3 - 3.5 mEq/L ; Start 12/23/15 at 08:30; Stop 01/09/16 at 11:14; Status DC Magnesium Sulfate/ Sodium Chloride (Magnesium Sulfate Inj/NS Inj) 100 ml @ 50 mls/hr UNSCH PRN IV For Magnesium 0.9 - 1.1 mg/dL; Start 12/23/15 at 08:30; Stop 01/09/16 at 11:14; Status DC Magnesium Oxide 800 mg 800 mg UNSCH PRN PO For Magnesium 1.2 - 1.6 mg/dL; Start 12/23/15 at 08:30; Stop 01/09/16 at 11:14; Status DC Magnesium Sulfate/ Sodium Chloride (Magnesium Sulfate Inj/NS Inj) 100 ml @ 50 mls/hr UNSCH PRN IV For Magnesium 1.2 - 1.6 mg/dL; Start 12/23/15 at 08:30; Stop 01/09/16 at 11:14; Status DC Potassium Phosphate 2000 mg 2,000 mg Q4H PRN PO For Phosphorus < 2.5 mg/dL; Start 12/23/15 at 08:30; Stop 01/09/16 at 11:14; Status DC Sodium Phosphate/ Sodium Chloride (Sodium Phosphate Inj/NS 250 ml Inj) 250 ml @ 42 mls/hr UNSCH PRN IV For Phosphorus < 2.5 mg/dL; Start 12/23/15 at 08:30; Stop 01/09/16 at 11:14; Status DC Potassium Chloride (KCl 40 Meq/30 ml Liq) 40 meq UNSCH PRN PO/TUBE SEE LABEL COMMENTS; Start 12/23/15 at 08:30; Stop 01/09/16 at 11:14; Status DC Potassium Phosphate 2000 mg 2,000 mg UNSCH PRN PO/TUBE SEE LABEL COMMENTS; Start 12/23/15 at 08:30; Stop 01/09/16 at 11:14; Status DC Potassium Phosphate 30 mmol/ Sodium Chloride 260 ml @ 42 mls/hr UNSCH PRN IV SEE LABEL COMMENTS; Start 12/23/15 at 08:30; Stop 01/09/16 at 11:14; Status DC Sodium Chloride 1,000 ml @ 75 mls/hr [id number] IV ; Start 12/23/15 at 08:30; Stop 12/23/15 at 08:30; Status DC Piperacillin Sod/ Tazobactam Sod 50 ml @ 100 mls/hr Q6H IV Last administered on 12/30/15at 10:02; Start 12/23/15 at 10:00; Stop 12/30/15 at 14:50; Status DC Vancomycin HCl/ Sodium Chloride (Vancomycin Inj/ NS 250 ml Inj) 250 ml @ 250 mls/hr Q12H IV Last administered on 12/29/15at 09:01; Start 12/24/15 at 08:45; Stop 12/29/15 at 15:33; Status DC Warfarin Sodium (Coumadin) 4 mg DAILY@16 PO Last administered on 12/28/15at 16:00 ; Start 12/26/15 at 16:00; Stop 01/04/16 at 12:25; Status DC Levetriacetam (Keppra Liq) 500 mg Q12HR TUBE Last administered on 01/21/16at 08: 13; Start 12/27/15 at 21:00 Docusate Sodium (Colace Liq) 100 mg Q12HR TUBE Last administered on 01/15/16at 09:01; Start 12/27/15 at 21:00; Status Hold Sennosides (Senna Liq) 8.8 mg DAILY TUBE Last administered on 01/15/16at 09:01 ; Start 12/27/15 at 17:00; Stop 01/15/16 at 20:37; Status DC Bisacodyl (Dulcolax Supp) 10 mg ONCE ONCE RECTAL ; Start 12/27/15 at 16:15; Stop 12/27/15 at 16:15; Status DC Albuterol/ Ipratropium (Duoneb Neb) 1 ampule Q4HR NEB PRN NEB RESPIRATORY DISTRESS Last administered on 12/29/15at 12:17; Start 12/27/15 at 22:00; Stop at 08:16; Status DC Bisacodyl (Dulcolax Supp) 10 mg ONCE ONCE RECTAL ; Start 12/28/15 at 12:00; Stop 12/28/15 at 12:01; Status DC Sodium Chloride (Sodium Chloride) 1 gm BID TUBE Last administered on 12/29/15at 09:02; Start 12/28/15 at 21:00; Stop 12/29/15 at 15:43; Status DC Lactulose (Lactulose Liq) 30 ml DAILY TUBE Last administered on 12/29/15at 09:02 ; Start 12/28/15 at 20:30; Stop 12/29/15 at 15:43; Status DC Levofloxacin (Levaquin) 750 mg DAILY@16 TUBE ; Start 12/29/15 at 16:00; Stop 05/05 at 16:00; Status DC Sodium Chloride (Sodium Chloride) 1 gm DAILY TUBE Last administered on at 07:29; Start 12/30/15 at 09:00; Stop 12/31/15 at 14:08; Status DC Water 200 ml 200 ml Q6HR G-TUBE Last administered on 12/31/15at 04:19; Start 06/05 at 14:45; Stop 12/31/15 at 07:31; Status DC Ceftriaxone Sodium/Sodium Chloride (Rocephin Inj/NS Inj) 100 ml @ 200 mls/hr Q12H IV Last administered on 01/03/16at 02:47; Start 12/30/15 at 15:00; Stop at 10:09; Status DC Acetaminophen (Tylenol 650 Mg/ 20 ml Liq) 650 mg Q6H PRN TUBE TEMP >100.4 Last administered on 01/19/16at 20:52; Start 12/30/15 at 15:15 Lactobacillus Acidophilus (Lactinex Pkt) 1 gm BID TUBE Last administered on 01/20at 08:16; Start 12/30/15 at 21:00 Enoxaparin Sodium (Lovenox Inj) 90 mg Q12H SQ Last administered on 01/01/16at 21 :57; Start 12/31/15 at 08:00; Stop 01/03/16 at 10:33; Status DC Water (Free Water) 100 ml Q12H G-TUBE ; Start 12/31/15 at 18:00; Stop 12/31/15 at 18:00; Status DC Acetaminophen/ Hydrocodone Bitart ([place] 5-325 Mg) 1 tab Q6H PRN PO PAIN Last administered on 01/16/16at 02:45; Start 12/31/15 at 15:00 Fentanyl Citrate (Sublimaze Inj) 25 mcg Q1H PRN IV PUSH BREAKTHROUGH PAIN; Start 12/31/15 at 15:00 Water (Free Water) 200 ml Q8H G-TUBE Last administered on 01/01/16at 17:55; Start 12/31/15 at 18:00; Stop 01/02/16 at 09:56; Status DC Sodium Chloride (Sodium Chloride) 1 gm BID TUBE Last administered on 01/03/16at 07:39; Start 12/31/15 at 21:00; Stop 01/03/16 at 09:08; Status DC Miscellaneous Information Hold Anticoagulation after midni... ONCE ONCE OTHER ; Start 01/01/16 at 10:15; Stop 01/01/16 at 10:29; Status DC Sodium Chloride (NS 1000 ml Inj) 1,000 ml @ 50 mls/hr Q20H IV Last administered on 01/02/16at 12:26; Start 01/01/16 at 18:00; Stop 01/03/16 at 10:07 ; Status DC Midazolam HCl (Versed Inj) 5 mg STK-MED ONCE .ROUTE ; Start 01/02/16 at 12:47; Stop 01/02/16 at 12:48; Status DC Vecuronium [place] (Norcuron 10 Mg Inj) 10 mg STK-MED ONCE .ROUTE ; Start at 12:47; Stop 01/02/16 at 12:48; Status DC Fentanyl Citrate (Sublimaze Inj) 250 mcg ONCE ONCE IV PUSH Last administered on 01/02/16at 15:00; Start 01/02/16 at 15:00; Stop 01/02/16 at 15:01; Status DC Midazolam HCl (Versed Inj) 10 mg ONCE ONCE IV PUSH Last administered on at 15:00; Start 01/02/16 at 15:00; Stop 01/02/16 at 15:01; Status DC Rocuronium [place] (Zemuron Inj) 100 mg BOLUS ONCE IV Last administered on at 15:00; Start 01/02/16 at 15:00; Stop 01/02/16 at 15:01; Status DC Ketamine HCl (Ketalar Inj) 500 mg STK-MED ONCE .ROUTE ; Start 01/02/16 at 14:30 ; Stop 01/02/16 at 14:31; Status DC Propofol 230 mg 230 mg STK-MED ONCE IV ; Start 01/02/16 at 16:51; Stop 01/02/16 at 16:52; Status DC Sodium Chloride (NS 1000 ml Inj) 1,000 ml @ 0 mls/hr Q0M IV ; Start 01/03/16 at 10:15; Stop 01/17/16 at 17:30; Status DC Ranitidine HCl (Zantac Liq) 150 mg Q12HR PO Last administered on 01/17/16at 07: 39; Start 01/04/16 at 09:00; Stop 01/17/16 at 15:23; Status DC Enoxaparin Sodium 90 mg 90 mg Q12HR SQ Last administered on 01/11/16at 10:01; Start 01/04/16 at 09:00; Stop 01/11/16 at 12:35; Status DC Sodium Chloride (NS 500 ml Inj) 500 ml @ 0 mls/hr BOLUS ONCE IV Last administered on 01/03/16at 22:57; Start 01/03/16 at 23:00; Stop 01/03/16 at 23:01 ; Status DC Insulin Aspart (NovoLOG SUPPLEMENTAL SCALE) 1 Q6HR SQ Last administered on at 06:42; Start 01/04/16 at 12:00 Potassium Chloride (KCl 40 Meq/30 ml Liq) 40 meq Q4H NG Last administered on at 16:21; Start 01/04/16 at 13:00; Stop 01/04/16 at 17:01; Status DC Warfarin Sodium 5 mg 5 mg DAILY@1600 PO Last administered on 01/09/16at 17:21; Start 01/04/16 at 16:00; Stop 01/10/16 at 10:06; Status DC Pharmacy Profile Note (Coumadin Consult Pharmacy) 0 ml @ 0 mls/hr UNSCH XX ; Start 01/04/16 at 12:30 Insulin Detemir (Levemir Inj) 10 units Q12HR SQ Last administered on 01/05/16at 08:00; Start 01/04/16 at 21:00; Stop 01/05/16 at 08:42; Status DC Insulin Detemir (Levemir Inj) 5 units NOW ONCE SQ Last administered on at 13:28; Start 01/04/16 at 12:45; Stop 01/04/16 at 12:46; Status DC Albuterol/ Ipratropium (Duoneb Neb) 1 ampule Q4HR NEB PRN NEB dyspnea Last administered on 01/10/16at 08:51; Start 01/07/16 at 08:15 Warfarin Sodium (Coumadin) 7.5 mg ONCE ONCE PO Last administered on 01/07/16at 16:40; Start 01/07/16 at 16:00; Stop 01/07/16 at 16:01; Status DC Nystatin (Mycostatin Powder) 1 applic Q12HR TOPICAL Last administered on at 21:42; Start 01/08/16 at 21:00 Ipratropium [place] (Atrovent Neb) 0.5 mg TID NEB NEB Last administered on 01/20at 08:31; Start 01/08/16 at 20:00 Warfarin Sodium (Coumadin) 5 mg DAILY@1600 PO Last administered on 01/11/16at 14 :26; Start 01/11/16 at 16:00; Stop 01/12/16 at 09:45; Status DC Warfarin Sodium (Coumadin) 6 mg ONCE PO Last administered on 01/10/16at 17:10; Start 01/10/16 at 16:00; Stop 01/10/16 at 21:00; Status DC Metoprolol Tartrate (Lopressor) 50 mg Q12HR GT Last administered on 01/11/16at 10:02; Start 01/10/16 at 11:00; Stop 01/11/16 at 12:30; Status DC Metoprolol Tartrate (Lopressor) 50 mg TID GT Last administered on 01/14/16at 08: 24; Start 01/11/16 at 13:00; Stop 01/14/16 at 08:28; Status DC Insulin Detemir (Levemir Inj) 10 units HS SQ Last administered on 01/11/16at 22: 23; Start 01/11/16 at 21:00; Stop 01/12/16 at 11:47; Status DC Warfarin Sodium (Coumadin) 4 mg DAILY@16 PO ; Start 01/12/16 at 16:00; Stop at 16:00; Status DC Insulin Detemir (Levemir Inj) 20 units HS SQ Last administered on 01/13/16at 20: 26; Start 01/12/16 at 21:00; Stop 01/14/16 at 08:28; Status DC Warfarin Sodium (Coumadin) 2 mg DAILY@16 PO Last administered on 01/13/16at 17: 05; Start 01/12/16 at 16:00; Stop 01/14/16 at 11:23; Status DC Insulin Detemir (Levemir Inj) 22 units HS SQ Last administered on 01/14/16at 21: 37; Start 01/14/16 at 21:00; Stop 01/15/16 at 10:06; Status DC Metoprolol Tartrate (Lopressor) 75 mg TID GT Last administered on 01/21/16at 08: 13; Start 01/14/16 at 09:00 Miscellaneous (Pill Splitter) 1 ea UNSCH PRN OTHER SEE LABEL COMMENTS; Start at 08:30 Warfarin Sodium (Coumadin) 4 mg DAILY@1600 PO Last administered on 01/20/16at 17: 12; Start 01/14/16 at 16:00 Patient Medication Teaching (Coumadin Booklet) 1 ONCE ONCE XX ; Start 01/14/16 at 16:00; Stop 01/14/16 at 16:01; Status DC Insulin Detemir (Levemir Inj) 24 units HS SQ Last administered on 01/20/16at 21: 41; Start 01/15/16 at 21:00 Citalopram Hydrobromide (CeleXA) 20 mg DAILY PEG Last administered on at 08:01; Start 01/16/16 at 09:00; Stop 01/16/16 at 09:41; Status DC Sennosides (Senna Liq) 8.8 mg BID TUBE Last administered on 01/21/16at 08:13; Start 01/15/16 at 21:00 Gadodiamide 18 ml 18 ml STK-MED ONCE IV ; Start 01/16/16 at 20:40; Stop at 20:41; Status DC Sodium Chloride (NS 1000 ml Inj) 1,000 ml @ 125 mls/hr Q8H IV Last administered on 01/17/16at 15:11; Start 01/17/16 at 15:00; Stop 01/17/16 at 17:31 ; Status DC Ranitidine HCl 150 mg 150 mg Q24H PO Last administered on 01/21/16at 08:13; Start 01/18/16 at 09:00 Sodium Chloride 1,000 ml @ 75 mls/hr [id number] IV Last administered on at 05:22; Start 01/17/16 at 18:00; Stop 01/18/16 at 09:28; Status DC Sodium Chloride/ Sterile Water (Sodium Chloride 23.4% Inj/Sterile Water For Inj ) 1,009.625 ml @ 60 mls/hr [id number] IV Last administered on 01/20/16at 21:56; Start 01/18/16 at 11:00 Potassium Chloride (KCl) 40 meq ONCE ONCE PO ; Start 01/18/16 at 09:30; Stop at 09:31; Status DC Potassium Chloride (KCl 40 Meq/30 ml Liq) 40 meq ONCE ONCE TUBE Last administered on 01/18/16at 11:08; Start 01/18/16 at 11:00; Stop 01/18/16 at 11:01 ; Status DC Water (Free Water) 300 ml Q4HR TUBE Last administered on 01/19/16at 08:00; Start 01/18/16 at 12:00; Stop 01/19/16 at 10:43; Status DC Water (Free Water) 400 ml Q4HR TUBE Last administered on 01/21/16at 08:00; Start 01/19/16 at 12:00 Potassium Chloride (KCl 40 Meq/30 ml Liq) 40 meq ONCE ONCE NG Last administered on 01/19/16at 11:41; Start 01/19/16 at 11:00; Stop 01/19/16 at 11:01; Status DC A/P Assessment and Plan A/P (1) CVA (cerebral vascular accident); 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 Continue Keppra and coumadin- neurology was reconsulted. Palliative care following. (2)fever- likely central- CXR and UA negative blood cultures negative and sputum culture with normal respiratory bharti- ID follow-up appreciated- continue to monitor temps- antipyretics as needed. (3) Acute respiratory failure Secondary to CVA, Status post tracheostomy. Continue pulmonary toilet and neb treatments as needed. Pulmonary following. (4) acute renal failure/ hypernatremia/hypokalemia BUN/ Cr and sodium level trending down-continue with IV fluid and water flush via PEG ; continue to monitor renal function and electrolytes will replace electrolytes as needed. renal sonogram with no hydronephrosis nephrology following. (5) A-fib continue lopressor - will monitor and adjust the regimen as needed. continue full anticoagulation with warfarin Echocardiogram completed in November shows preserved EF pharmacy consulted for coumadin dosing. (6) Non-Hodgkin lymphoma s/p brain biopsy on December 13, by Neurosurgery, Dr. Marin - Pathology consistent with acute infarct without evidence of lymphoma Seen by Oncology, Dr. Whyte, who has signed off for current admission as no active oncology issues (7) DM (diabetes mellitus) Patient with a hemoglobin A1c in November of above 7 continue Levemir with sliding scale- will monitor and adjust the regimen as needed. DVT prophylaxis with coumadin. Discharge Planning dc planning to SNF-no funding- SSI pending. Medardo Au MD Jan 21, 2016 10:30
--- NOTE | 2016-01-21 11:14 | HHI.NPPN ---
Subjective Renal Failure: Acute Interval History mother at the bedside. His condition has not changed. Review of Systems General General Remarks unable to evaluate ROS 2' to clinical condition of the pt Objective Data Data 01/20/16 01/21/16 19:00 07:00 Intake Total 2550 ml Output Total 750 ml 1200 ml Balance -750 ml 1350 ml Intake Oral 0 ml IV Total 1200 ml Tube Feeding 550 ml Tube Irrigant 800 ml Output Urine Total 750 ml 1200 ml # Bowel Movements 1 0 Vital Signs Date Time Temp Pulse Resp B/P Pulse Ox O2 Delivery O2 Flow Rate FiO2 01/21/16 08:33 98 T-piece 40 01/21/16 08:00 100.0 99 20 130/74 97 01/21/16 05:00 97.0 80 21 130/76 98 01/21/16 00:00 97.0 80 20 128/78 99 01/20/16 20:30 98.7 82 17 132/80 100 01/20/16 20:02 97 T-piece 40 01/20/16 18:34 77 01/20/16 17:57 T-piece 40 01/20/16 16:00 98.9 84 22 119/60 98 01/20/16 12:00 98.0 84 22 130/73 98 -: 01/21/16 0850 Tubes & Lines: Arevalo Tubes & Lines Comment PEG Drip Comment 1/4 NS Physical Exam General Appearance: Well Developed, Sleeping Eyes Eye Exam: Pupils Equal Throat Throat Exam: Oral Mucosa Rudy & Moist Pulmonary Resp Exam: Clear Bilaterally, Breath Sounds Equal, Decreased Bases, Diminished Breath Sounds Gastrointestinal/Abdomen GI Exam: Soft, Non-Tender Genitourinary Exam: Clear Urine Musculoskeletal MS Exam: Joints Intact Integumentary Skin Exam: Clear, Warm, Dry, Intact Extremeties Extremities Exam: No Edema, Pedal Pulses Palpable VTE Prophylaxis Device: SCDs Assessment/Plan Discussed Condition With: Patient, Parent, Spouse, Daughter, Relative Assessment Summary: CAREN/Acute Renal Failure Problem List: (1) Acute renal failure Plan: due to urinary retention. Improved. (2) Hypernatremia Plan: Improving. Continue 1/4NS for another day. He is also on free water flushes. (3) DM (diabetes mellitus) Plan: monitor BG insulin as needed. Hyperglycemia should be prevented as it will lead to osmotic diuresis and worsening of hypernatremia. (4) Hypokalemia Plan: replace. Plan . Josef Rodriges MD Jan 21, 2016 11:13
[2016-01-21] MEDS: WARFARIN SOD 4 MG TAB PO SCH (16:51)
[2016-01-21] MEDS: ACETAMINOPHEN 650 MG/20.3 ML UDC TUBE PRN (17:05)
[2016-01-21] MEDS: INSULIN DETEMIR 100 UNITS/ML VIAL SQ SCH (22:44)
[2016-01-21] MEDS: SODIUM CHLORIDE 23.4% INJ 38.5 MEQ in WATER STERILE FOR INJ 1,000 ML IV SCH (22:46)
[2016-01-22] VITALS (10 sets, daily range): BP systolic 118–163; BP diastolic 69–80; PULSE 66–93; RESP 17–20; TEMP 97.6–99.4; O2SAT 97–100
[2016-01-22] MEDS: FREE WATER TUBE SCH ×7 (04:00→23:39)
[2016-01-22] MEDS: INSULIN ASPART SUPPLEMENTAL SCALE SQ SCH ×4 (05:29→23:39)
[2016-01-22 06:41] LABS: INTERNATIONAL NORMALIZED RATIO 3.1 RATIO; PROTHROMBIN TIME - PATIENT 34.9 SEC (9.8-11.4)
[2016-01-22 06:43] LABS: BICARBONATE 25.2 MEQ/L (21.0-32.0); POTASSIUM 3.5 MEQ/L (3.5-5.1)
[2016-01-22] MEDS: SENNOSIDES SYRUP 8.8 MG/5 ML CUP TUBE SCH ×2 (07:40→21:00)
[2016-01-22] MEDS: RANITIDINE HCL SYRUP 150 MG/10 ML UDC PO SCH (07:40)
[2016-01-22] MEDS: METOPROLOL TARTRATE 50 MG TAB GT SCH ×3 (07:40→17:10)
[2016-01-22] MEDS: NYSTATIN 100,000 U/GM PWD 15 GM BTL TOPICAL SCH ×2 (07:40→21:00)
[2016-01-22] MEDS: LACTOBACILLUS ACIDOPHILUS 1 GM PACKET TUBE SCH ×2 (07:40→21:30)
[2016-01-22] MEDS: levETIRAcetam 500 MG/5 ML UDC TUBE SCH ×2 (07:40→21:30)
[2016-01-22] MEDS: RESP: IPRATROPIUM 0.5 MG/2.5 ML NEB NEB SCH ×3 (09:10→19:19)
[2016-01-22] MEDS: ACETAMINOPHEN 650 MG/20.3 ML UDC TUBE PRN (09:19)
--- NOTE | 2016-01-22 10:11 | HHI.NPPN ---
Subjective Renal Failure: Acute Interval History Hypernatremia and ARF better. Review of Systems General General Remarks unable to evaluate ROS 2' to clinical condition of the pt Objective Data Data 01/21/16 01/22/16 19:00 07:00 Intake Total 0 ml 0 ml Output Total 1000 ml 600 ml Balance -1000 ml -600 ml Intake Oral 0 ml 0 ml Output Urine Total 1000 ml 600 ml # Bowel Movements 2 Vital Signs Date Time Temp Pulse Resp B/P Pulse Ox O2 Delivery O2 Flow Rate FiO2 01/22/16 09:10 98 T-piece 40 01/22/16 08:07 98.8 93 20 163/78 97 01/22/16 07:01 T-Piece 7.00 40 01/22/16 07:00 90 01/22/16 05:35 98 T-piece 6.00 40 01/22/16 05:00 98.9 84 19 120/80 97 01/22/16 00:00 97.9 66 17 118/72 99 01/21/16 22:55 99 T-Piece 40 01/21/16 21:00 97.1 78 19 127/69 98 01/21/16 20:20 77 01/21/16 20:02 98 T-piece 7.00 35 01/21/16 18:55 17 01/21/16 16:00 98.6 86 18 128/79 98 01/21/16 15:47 98 T-Piece 40 -: 01/22/16 0600 Tubes & Lines: [place] Tubes & Lines Comment PEG Drip Comment 1/4 NS Physical Exam General Appearance: Well Developed, Sleeping Eyes Eye Exam: Pupils Equal Throat Throat Exam: Oral Mucosa [place] & Moist Pulmonary Resp Exam: Clear Bilaterally, Breath Sounds Equal, Decreased Bases, Diminished Breath Sounds Gastrointestinal/Abdomen GI Exam: Soft, Non-Tender Genitourinary Exam: Clear Urine Musculoskeletal MS Exam: Joints Intact Integumentary Skin Exam: Clear, Warm, Dry, Intact Extremeties Extremities Exam: No Edema, Pedal Pulses Palpable VTE Prophylaxis Device: SCDs Assessment/Plan Discussed Condition With: Patient, Parent, Spouse, Daughter, Relative Assessment Summary: CAREN/Acute Renal Failure Problem List: (1) Acute renal failure Plan: due to urinary retention. Improved. (2) Hypernatremia Plan: Improved. Change IVF to 1/2NS. He is also on free water flushes. (3) DM (diabetes mellitus) Plan: monitor BG insulin as needed. Hyperglycemia should be prevented as it will lead to osmotic diuresis and worsening of hypernatremia. (4) Hypokalemia Plan: replace as needed. Plan Patient has improved from my standpoint. I will sign off. . Josef Rodriges MD Jan 22, 2016 10:11
--- NOTE | 2016-01-22 11:20 | HHI.PR ---
Subjective Remarks 59-year-old male with past medical history of paroxysmal atrial fibrillation, hypertension, stage III a non-Hodgkin's lymphoma status post a chemotherapy last year.He received Rituxan CHOP.He presented to [facility] emergency department with altered mental status. 01/22/16-patient seen and examined; open his eyes to verbal stimuli. No acute event overnight. Afebrile. Mom by the bedside Objective Vitals Vital Signs Date Time Temp Pulse Resp B/P Pulse Ox O2 Delivery O2 Flow Rate FiO2 01/22/16 09:10 98 T-piece 40 01/22/16 08:07 98.8 93 20 163/78 97 01/22/16 07:01 T-Piece 7.00 40 01/22/16 07:00 90 01/22/16 05:35 98 T-piece 6.00 40 01/22/16 05:00 98.9 84 19 120/80 97 01/22/16 00:00 97.9 66 17 118/72 99 01/21/16 22:55 99 T-Piece 40 01/21/16 21:00 97.1 78 19 127/69 98 01/21/16 20:20 77 01/21/16 20:02 98 T-piece 7.00 35 01/21/16 18:55 17 01/21/16 16:00 98.6 86 18 128/79 98 01/21/16 15:47 98 T-Piece 40 I/O 01/21/16 01/21/16 01/21/16 01/22/16 01/22/16 01/22/16 07:00 15:00 23:00 07:00 15:00 23:00 Intake Total 2550 ml 0 ml Output Total 800 ml 1600 ml Balance 1750 ml -1600 ml Intake Oral 0 ml 0 ml IV Total 1200 ml Tube Feeding 550 ml Tube Irrigant 800 ml Output Urine Total 800 ml 1600 ml Bladder Scan Volume Amount 392 ml # Bowel Movements 0 2 Result Diagram: 01/22/16 0600 Imaging GENERAL: Well-nourished, well-developed patient with trach in place. SKIN: Warm and dry. HEAD: Normocephalic. EYES: No scleral icterus. No injection or drainage. NECK: Supple, trachea midline. No JVD or lymphadenopathy. CARDIOVASCULAR: Regular rate and rhythm without murmurs, gallops, or rubs. RESPIRATORY: Breath sounds equal bilaterally. No accessory muscle use. GASTROINTESTINAL: Abdomen soft, non-tender, nondistended. PEG tube in place MUSCULOSKELETAL: No cyanosis, or edema. BACK: Nontender without obvious deformity. No CVA tenderness. 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 Continue Keppra and Coumadin- neurology was reconsulted.Palliative care following. (2)fever- now resolved. CXR and UA negative. blood cultures negative and sputum culture with normal respiratory bharti- ID follow-up appreciated- continue to monitor temps- antipyretics as needed. (3) Acute respiratory failure: Secondary to CVA, Status post tracheostomy. Continue pulmonary toilet and neb treatments as needed.Pulmonary following. (4) acute renal failure/ hypernatremia/hypokalemia-continue with IV fluid and water flush via PEG ; continue to monitor renal function and electrolytes renal sonogram with no hydronephrosis. Appreciate input from nephrology (5) A-fib: continue Lopressor, warfarin. Echocardiogram completed in November shows preserved EF (6) Non-Hodgkin lymphoma s/p brain biopsy on December 13, by Neurosurgery, Dr. Marin - Pathology consistent with acute infarct without evidence of lymphoma Seen by Oncology, Dr. Whyte, who has signed off for current admission as no active oncology issues (7) DM (diabetes mellitus): continue Levemir with sliding scale- will monitor and adjust the regimen as needed. DVT prophylaxis with Coumadin. Mikie Bundy MD Jan 22, 2016 11:20
[2016-01-22] MEDS: SODIUM CHLOR 0.45% 1000 ML INJ 1,000 ML IV SCH (11:59)
[2016-01-22] MEDS: INSULIN DETEMIR 100 UNITS/ML VIAL SQ SCH (21:30)
[2016-01-23] VITALS (9 sets, daily range): BP systolic 120–130; BP diastolic 72–81; PULSE 86–97; RESP 18–24; TEMP 97.3–99.4; O2SAT 97–100
[2016-01-23] MEDS: FREE WATER TUBE SCH ×6 (04:13→23:58)
[2016-01-23] MEDS: INSULIN ASPART SUPPLEMENTAL SCALE SQ SCH ×4 (05:29→23:57)
[2016-01-23] MEDS: RESP: IPRATROPIUM 0.5 MG/2.5 ML NEB NEB SCH ×3 (08:29→20:08)
[2016-01-23 08:36] LABS: INTERNATIONAL NORMALIZED RATIO 2.3 RATIO
[2016-01-23] MEDS: NYSTATIN 100,000 U/GM PWD 15 GM BTL TOPICAL SCH ×2 (09:00→21:35)
[2016-01-23] MEDS: levETIRAcetam 500 MG/5 ML UDC TUBE SCH ×2 (09:05→21:35)
[2016-01-23] MEDS: LACTOBACILLUS ACIDOPHILUS 1 GM PACKET TUBE SCH ×2 (09:05→21:35)
[2016-01-23] MEDS: METOPROLOL TARTRATE 50 MG TAB GT SCH ×3 (09:05→17:19)
[2016-01-23] MEDS: SENNOSIDES SYRUP 8.8 MG/5 ML CUP TUBE SCH ×2 (09:05→21:35)
[2016-01-23] MEDS: RANITIDINE HCL SYRUP 150 MG/10 ML UDC PO SCH (09:05)
[2016-01-23] MEDS: SODIUM CHLOR 0.45% 1000 ML INJ 1,000 ML IV SCH (09:06)
--- NOTE | 2016-01-23 09:28 | HHI.PR ---
Subjective Remarks 59-year-old male with past medical history of paroxysmal atrial fibrillation, hypertension, stage III a non-Hodgkin's lymphoma status post a chemotherapy last year.He received Rituxan CHOP.He presented to [facility] emergency department with altered mental status. 01/22/16-patient seen and examined; open his eyes to verbal stimuli. No acute event overnight. Afebrile. Mom by the bedside 01/23/16-patient seen and examined; no change and stable. Currently afebrile Objective Vitals Vital Signs Date Time Temp Pulse Resp B/P Pulse Ox O2 Delivery O2 Flow Rate FiO2 01/23/16 08:31 97 T-piece 40 01/23/16 08:14 97.8 97 18 128/73 100 01/23/16 07:40 96 01/23/16 04:00 97.6 93 20 125/76 99 01/23/16 00:00 99.4 87 24 127/72 97 01/22/16 20:00 99.4 83 20 126/71 99 01/22/16 19:29 98 T-Piece 7.00 40 01/22/16 19:19 97 T-piece 6.00 40 01/22/16 16:25 97.6 84 20 127/69 97 01/22/16 11:26 97.7 82 20 139/78 100 I/O 01/22/16 01/22/16 01/22/16 01/23/16 01/23/16 01/23/16 07:00 15:00 23:00 07:00 15:00 23:00 Intake Total 0 ml Output Total 800 ml 1000 ml 500 ml Balance -800 ml -1000 ml -500 ml Intake Oral 0 ml Output Urine Total 800 ml 1000 ml 500 ml Bladder Scan Volume Amount 392 ml 392 ml 392 ml # Bowel Movements 1 1 0 Result Diagram: 01/22/16 0600 Procedures PEG and trach A/P Problem List: (1) CVA (cerebral vascular accident) Status: Acute (2) Fever Status: Acute (3) Acute respiratory failure Status: Acute (4) A-fib Status: Acute (5) Non-Hodgkin lymphoma Status: Chronic (6) DM (diabetes mellitus) Status: Acute Assessment and Plan 60 yrs old man with 1) CVA (cerebral vascular accident); 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 Continue Keppra and Coumadin- neurology was reconsulted.Palliative care following. (2)fever- now resolved. CXR and UA negative. blood cultures negative and sputum culture with normal respiratory bharti- ID follow-up appreciated- continue to monitor temps- antipyretics as needed. (3) Acute respiratory failure: Secondary to CVA, Status post tracheostomy. Continue pulmonary toilet and neb treatments as needed.Pulmonary following. (4) acute renal failure/ hypernatremia/hypokalemia-continue with IV fluid and water flush via PEG ; continue to monitor renal function and electrolytes renal sonogram with no hydronephrosis. Appreciate input from nephrology (5) A-fib: continue Lopressor, warfarin. Echocardiogram completed in November shows preserved EF (6) Non-Hodgkin lymphoma s/p brain biopsy on December 13, by Neurosurgery, Dr. Marin - Pathology consistent with acute infarct without evidence of lymphoma Seen by Oncology, Dr. Whyte, who has signed off for current admission as no active oncology issues (7) DM (diabetes mellitus): continue Levemir with sliding scale- will monitor and adjust the regimen as needed. DVT prophylaxis with Coumadin. Mikie Bundy MD Jan 23, 2016 09:28
[2016-01-23] MEDS: INSULIN DETEMIR 100 UNITS/ML VIAL SQ SCH (21:35)
[2016-01-24] VITALS (11 sets, daily range): BP systolic 104–139; BP diastolic 60–76; PULSE 90–100; RESP 18–22; TEMP 97.3–99.3; O2SAT 97–100
[2016-01-24] MEDS: FREE WATER TUBE SCH ×5 (04:00→20:00)
[2016-01-24] MEDS: INSULIN ASPART SUPPLEMENTAL SCALE SQ SCH ×3 (06:00→18:28)
[2016-01-24] MEDS: RESP: IPRATROPIUM 0.5 MG/2.5 ML NEB NEB SCH ×3 (07:51→20:21)
[2016-01-24] MEDS: RANITIDINE HCL SYRUP 150 MG/10 ML UDC PO SCH (09:53)
[2016-01-24] MEDS: METOPROLOL TARTRATE 50 MG TAB GT SCH ×3 (09:53→16:58)
[2016-01-24] MEDS: SENNOSIDES SYRUP 8.8 MG/5 ML CUP TUBE SCH ×2 (09:53→20:36)
[2016-01-24] MEDS: levETIRAcetam 500 MG/5 ML UDC TUBE SCH ×2 (09:53→20:36)
[2016-01-24] MEDS: NYSTATIN 100,000 U/GM PWD 15 GM BTL TOPICAL SCH ×2 (09:54→20:42)
[2016-01-24] MEDS: LACTOBACILLUS ACIDOPHILUS 1 GM PACKET TUBE SCH ×2 (09:54→20:36)
--- NOTE | 2016-01-24 10:05 | HHI.PR ---
Subjective Remarks 59-year-old male with past medical history of paroxysmal atrial fibrillation, hypertension, stage III a non-Hodgkin's lymphoma status post a chemotherapy last year.He received Rituxan CHOP.He presented to [facility] emergency department with altered mental status. 01/22/16-patient seen and examined; open his eyes to verbal stimuli. No acute event overnight. Afebrile. Mom by the bedside 01/23/16-patient seen and examined; no change and stable. Currently afebrile 01/24/16-patient seen and examined. Open his eyes to verbal stimuli, vital stable and no acute event overnight. Mom at the bedside Objective Vitals Vital Signs Date Time Temp Pulse Resp B/P Pulse Ox O2 Delivery O2 Flow Rate FiO2 01/24/16 08:15 97 T-piece 6.00 28 01/24/16 08:00 98.9 97 18 139/75 100 01/24/16 07:36 97 01/24/16 04:20 97.3 100 19 124/72 100 01/24/16 01:10 91 01/24/16 00:09 97.7 94 18 121/76 99 01/23/16 21:06 97.3 87 19 125/78 100 01/23/16 20:08 100 T-piece 6.00 40 01/23/16 19:45 T-Piece 7.00 40 01/23/16 16:52 97.3 86 18 130/81 100 01/23/16 12:00 98.8 95 18 120/74 98 I/O 01/23/16 01/23/16 01/23/16 01/24/16 01/24/16 01/24/16 07:00 15:00 23:00 07:00 15:00 23:00 Output Total 500 ml 1150 ml 700 ml 1000 ml Balance -500 ml -1150 ml -700 ml -1000 ml Output Urine Total 500 ml 1150 ml 700 ml 1000 ml # Bowel Movements 0 1 Result Diagram: 01/22/16 0600 Procedures PEG and trach A/P Problem List: (1) CVA (cerebral vascular accident) Status: Acute (2) Fever Status: Resolved (3) Acute respiratory failure Status: Resolved (4) A-fib Status: Chronic (5) Non-Hodgkin lymphoma Status: Chronic (6) DM (diabetes mellitus) Status: Chronic Assessment and Plan 60 yrs old man with 1) CVA (cerebral vascular accident); 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 Continue Keppra and Coumadin- neurology was reconsulted.Palliative care following. (2)fever- now resolved. CXR and UA negative. blood cultures negative and sputum culture with normal respiratory bharti- ID follow-up appreciated- continue to monitor temps- antipyretics as needed. (3) Acute respiratory failure: Secondary to CVA, Status post tracheostomy. Continue pulmonary toilet and neb treatments as needed.Pulmonary following. (4) acute renal failure/ hypernatremia/hypokalemia-resolved with IV fluid and water flush via PEG ; continue to monitor renal function and electrolytes renal sonogram with no hydronephrosis. Appreciate input from nephrology (5) A-fib: continue Lopressor, warfarin. Echocardiogram completed in November shows preserved EF (6) Non-Hodgkin lymphoma s/p brain biopsy on December 13, by Neurosurgery, Dr. Marin - Pathology consistent with acute infarct without evidence of lymphoma Seen by Oncology, Dr. Whyte, who has signed off for current admission as no active oncology issues (7) DM (diabetes mellitus): continue Levemir with sliding scale- monitor and adjust the regimen as needed. DVT prophylaxis with Coumadin. Continue with current treatment Mikie Bundy MD Jan 24, 2016 10:04
[2016-01-24] MEDS: SODIUM CHLOR 0.45% 1000 ML INJ 1,000 ML IV SCH (10:06)
[2016-01-24 10:07] LABS: INTERNATIONAL NORMALIZED RATIO 1.6 RATIO; PROTHROMBIN TIME - PATIENT 17.4 SEC (9.8-11.4)
--- NOTE | 2016-01-24 11:32 | HHI.HCPN ---
Reason for visit a. To assist with evaluation and management of symptoms including: dyspnea, encephalopathy, depression b. To assist medical decision maker(s) with: better understanding of current medical conditions; weighing benefits/burdens of medical treatment options; making medical treatment decisions. Subjective/Interval History Patient seen today to follow-up with family for medical update, patient comfort. Patient has been afebrile. Vital signs have been within normal limits. No significant neurological changes. PT, OT following for range of motion. Note patient with no ability to participate, they do not note attempts at communication. 01/21 chemistry essentially unremarkable. Sent blood culture and sputum culture from 01/15 negative. Continues to tolerate T piece to tracheostomy, today down to 28% FiO2 though last few days was requiring 40% FiO2. Still requiring occasional tracheal suctioning for secretions. Patient seen in room with Jessenia WOOTEN, palliative social insurance analyst. (ex) Leanne, mother present. Patient is noted with eyes closed, nonresponsive to my exam. informs that he is intermittently interactive with them he intermittently tracks them she indicates at some point in the past few days he even seemed to smile with his eyes and find a joke they were telling humorous. His alertness fluctuates. She shares they have not seen any further tearful episodes, nor any signs that he might be in pain. They continue to work with his eye movement to determine communication though Leanne indicates this is very intermittent and not consistent in terms of him being able to participate. Provided medical update and review of current condition, assessment, diagnostics. She is in close communication with patient daughter Leanne and will provide update to her (per prior conversations with daughter Leanne this is acceptable.) Patient does not respond my exam. Eyes remain closed. Appears comfortable in no distress. Course rhonchi heard throughout lungs. History brought forward from initial consult by Rita MOCTEZUMA on 01/10/16: This 59-year-old patient was admitted on 12/21/15 via the ED for facial drooping. ED physician notes that patient and patients are poor historians, EMS reported the could not provide good timelines to them. Patient also reported headache, difficulty ambulating. He had known history of recent findings of mass in the brain. During ED course had deterioration of clinical condition and able to protect his airway, unable to follow commands patient was intubated and CT brain obtained. He was admitted for further evaluation and management to the ICU. Chargeback Analyst was consulted and following patient. Pathology on recent brain biopsy (12/13) still pending. CLINICAL/HOSPITAL COURSE: * CT brain= no focal or acute intracranial hemorrhage. New area decreased density in left occipital lobe suggestive of recent nonhemorrhagic infarct, decreased density in previously noted right occipital lobe has increased in size * Brain MRI = new area of restricted diffusion within left occipital lobe suggesting acute infarct. Interval enlargement of the area of restricted diffusion within right occipital lobe suggesting probable extension of right occipital and started on. Underlying enhancement of right occipital lobe is slightly worse than the previous exam and nonspecific. Biopsy has been performed and results are pending. Tiny focal area of restricted diffusion within right cerebellar hemisphere consistent with probable acute/subacute lacunar infarct. Signal abnormality in the SWI sequence within the right occipital lobe suggesting some hemorrhage in biopsy bed. No midline shift or extra-axial fluid collections. * CXR= no acute cardiopulmonary disease * -Neurology consulted, ordered MRA to look for vertebrobasilar stenosis, echo done last admission notes normal EF with normal valves and normal left atrial size. EEG also ordered. MR venogram ordered. EEG= abnormal study consistent with her encephalopathy. MRV indicated basilar occlusion; neurology notes discussion with family regarding chemical code only, also notes discussion regarding risks associated with the anticoagulates, was discussed with radiologist/INR recommended not helpful to extract basilar clot as this could result in patient's . It was felt the colin was infarcted. Further neurology notes "he could be locked in", is acting as if colin is infarcted. * Oncology known to patient also consulted for non-Hodgkin's lymphoma: Dr Whyte documents that there was no evidence of residual or recurrent disease on CT scans of chest, abdomen, pelvis done in October and November of this year. Pathology was still pending, had been sent to [facility] for second opinion. No acute oncology interventions recommended at that time, will follow. * 6/5 - 6/7 febrile. CPAP trials. Remains on vent off of sedation. Withdrawing to pain. Repeat brain MRI= evolving brainstem stroke. Neurology notes extensive discussion with family, notes discussion the patient is locked in but fully aware, family would like to see help patient does over the next 3 months. 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 Biopsy brain lesion appears consistent with acute infarct no lymphoma. Family desires ongoing aggressive measures, will proceed with tracheostomy. Sputum culture positive sensitive Klebsiella. * 01/01 tracheostomy, PEG tube placement * 01/04 trach collar trials, alternating with T piece. Low-grade fever 100.5. CXR = mild bibasilar atelectasis. Neuro: Spontaneously opening eyes, looking up / down, directionally to commands. * 01/07 still "locked in " , transferred off ICU to regular floor. * 01/08 pulmonology consulted-not CXR clear no evidence of pulmonary infection. He may have some underlying COPD recommends continued aerosol treatments. Further notes long discussion with family at bedside regarding tracheostomy, long-term use of trach until patient able to protect his airway, no further recommendations. Palliative care consulted to assist with clarification of goals of treatment. Advance Directives Living Will: Never completed Health Care Surrogate: Never completed Objective Vital Signs Date Time Temp Pulse Resp B/P Pulse Ox O2 Delivery O2 Flow Rate FiO2 01/24/16 08:15 97 T-piece 6.00 28 01/24/16 08:00 98.9 97 18 139/75 100 01/24/16 07:36 97 01/24/16 04:20 97.3 100 19 124/72 100 01/24/16 01:10 91 01/24/16 00:09 97.7 94 18 121/76 99 01/23/16 21:06 97.3 87 19 125/78 100 01/23/16 20:08 100 T-piece 6.00 40 01/23/16 19:45 T-Piece 7.00 40 01/23/16 16:52 97.3 86 18 130/81 100 01/23/16 12:00 98.8 95 18 120/74 98 Physical Exam CONSTITUTIONAL/GENERAL: This is an adequately nourished patient,asleep, no apparent distress TUBES/LINES/DRAINS: PIV left upper extremity, Arevalo catheter, PEG tube, tracheostomy, SCDs, heel protection boots SKIN: No jaundice, rashes, or lesions.No wounds seen anteriorly. Skin temperature appropriate. Not diaphoretic. EYES: eyes closed, sleeping CARDIOVASCULAR: Regular rate and rhythm without murmurs. No JVD. Peripheral pulses symmetric. No peripheral edema. RESPIRATORY/CHEST: Symmetric, unlabored respirations. T piece, 28% FiO2. Course rhonchi throughout. Breath sounds equal bilaterally. GASTROINTESTINAL: Abdomen soft, non-tender, nondistended. No palpable masses. Bowel sounds normoactive.TF infusing to PEG MUSCULOSKELETAL: Extremities without clubbing, cyanosis, or edema. No joint effusion noted. No mottling or clubbing. NEUROLOGICAL: Asleep during my exam, does not arouse to stimuli. PSYCHIATRIC: Difficult to fully assess due to clinical condition. no apparent hallucinations or other psychotic thought process. Diagnostic Tests Laboratory Laboratory Tests Test 01/22/16 01/23/16 01/24/16 06:00 08:04 09:42 Prothrombin Time 34.9 SEC 25.0 SEC 17.4 SEC (9.8-11.4) (9.8-11.4) (9.8-11.4) Prothromb Time International 3.1 RATIO 2.3 RATIO 1.6 RATIO Ratio Sodium Level 144 MEQ/L (136-145) Potassium Level 3.5 MEQ/L (3.5-5.1) Chloride Level 110 MEQ/L (98-107) Carbon Dioxide Level 25.2 MEQ/L (21.0-32.0) Anion Gap 9 MEQ/L (5-15) Blood Urea Nitrogen 21 MG/DL (7-18) Creatinine 0.60 MG/DL (0.60-1.30) Estimat Glomerular Filtration 137 ML/MIN Rate (>89) Random Glucose 92 MG/DL (74-106) Calcium Level 7.9 MG/DL (8.5-10.1) Phosphorus Level 2.0 MG/DL (2.5-4.9) Albumin 2.0 GM/DL (3.4-5.0) Result Diagram: 01/22/16 0600 Microbiology 01/15blood culture-no growth sputum culture-no growth Imaging Last Impressions Head Magnetic Resonance Angiography 01/16/16 0000 Signed Impressions: Service Date/Time: Saturday, January 16, 2016 20:05 - CONCLUSION: 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 Anterior circulation remains intact. Mikie Vargas MD Head CT 01/16/16 0000 Signed Impressions: Service Date/Time: Saturday, January 16, 2016 10:51 - CONCLUSION: No extensive low density in the brainstem colin more prominent in the right the left extending into the right middle cerebellar peduncle consistent with brainstem infarct nonhemorrhagic acute Wellington West MD Brain MRI 01/16/16 0000 Signed Impressions: Service Date/Time: Saturday, January 16, 2016 20:05 - CONCLUSION: Recent infarctions in both occipital lobes and left cerebellum. High flair abnormality within the colin but greater on the right where there is enhancement. This is likely related to progressive acute ischemic changes. Mikie Vargas MD Chest X-Ray 01/15/16 0000 Signed Impressions: Service Date/Time: Friday, January 15, 2016 12:09 - CONCLUSION: Underinflation with atelectasis at the lung bases. Otherwise, no acute cardiopulmonary abnormality is visualized. Glen Gordon MD Abdomen X-Ray 01/14/16 0000 Signed Impressions: Service Date/Time: Thursday, January 14, 2016 10:19 - CONCLUSION: Moderate stool; otherwise, negative. 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 No evidence of carotid stenosis. Glen Zamora MD Head/Brain Mag Res Venography 12/22/15 0000 Signed Impressions: Service Date/Time: Tuesday, December 22, 2015 09:22 - CONCLUSION: Normal MRV. Jonel Jones Jr., MD Procedures * 01/01 tracheostomy, PEG tube placement . 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; EEG indicates encephalopathy, neuro following patient felt to be in a "locked-in "state (2) Non-Hodgkin lymphoma Comment: -In remission status post chemotherapy completed May 2015 (3) Acute respiratory failure Comment: Pulmonology following, medical management (4) A-fib (5) Status post stereotactic brain biopsy (6) Brain lesion Comment: Status post biopsy November 2015; pathology consistent with acute infarct without evidence of lymphoma (7) DM (diabetes mellitus) Symptom Scale: (1) Dysphagia Comment: Status post significant CVA, has had PEG tube placed (2) Dyspnea Comment: Respiratory failure secondary to CVA, status post tracheostomy, pulmonary following (3) Encephalopathy Comment: Significant CVA, "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 Albumin 2.4. (5) Depression Comment: At risk for related to "locked in status", communication difficulties , situational, but would likely benefit from anti-depressant Pertinent Non-Medical Issues * Psychosocial:Mr. Flores is originally from [place]. He moved to the around 35 years ago, first to [place] and later to [place]. He is not legally but remains with his ex-, Leanne. They have been together for 31+ years and have three children together: Leanne, Gerald, and Ginny. Gerald is currently in [facility] for work. Mr. Flores has 2 brothers and 7 sisters. His father is of old age. His mother is alive and was living with the patient. Greatly enjoys his family. Retired. 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 * Spiritual: * Legal:Patient due to clinical condition is currently unable to participate in medical decision making. Not clear if or when he will regain this ability. Family does not believe he has completed advance directives. per [place] Statutes, medical proxy decision making would fall to the majority of adult children, as Mr. Flores is not legally . * Ethical issues impacting care: Important Contacts Leanne, daughter: [phone] Ginny, daughter: [phone] Gerald, son: currently in [facility] for work but has communication with his siblings. Leanne, ex-: [phone] Prognosis This patient has had 20 day hospital course thus far, admitted on 62 for a large brainstem infarct, bilateral occipital infarcts. He has subsequently had ongoing encephalopathy and severe communication limitations, neurology feels he is in a "locked-in "state. He has suffered from respiratory failure likely secondary to significant CVA. Appears he should be able to survive this acute hospitalization, however not clear when or if he will regain ability to communicate, based on current assessments patient will require long-term care placement. He will remain high risk for potential competition/setbacks due to immobile status including infections, DVT etc. . Code Status: Full Code Plan * GOALS: Very aggressive. See family conference component on initial consult for additional detail. Meeting In summary: Initially they had many questions regarding admission and biopsy which occurred in November, they ask about differentials and decision making leading to the biopsy, and have many concerns regarding that clinical course--advised that I could not speak to any of those questions or processes as I was not involved in his care and decision making at that time, recommend them to direct those specific questions to those initial providers which provided those services. Otherwise review of conditions, goals as detailed in "issues discussed". Family expresses that Mr. Flores did remarkably well following his chemotherapy for lymphoma just last year, and that he had been doing fine until recent issue in November. They endorsed that he is a fighter, that he is a very optimistic person, and that they are certain he is "in there "and would want to continue fighting for whatever recovery he might have." They have many questions regarding rehabilitation services and placement as well as financial coverage for these services, advised that case management could assist them with the various applications which already in process, but that any placement would depend on funding, or alternatively [facility] placement which is up to any individual institution. They would like to maximize PT/OT/ST ongoing while here in the hospital. They also request courtesy consult of to follow him for pulmonary as he is known to the family through their roman catholic. * 01/24/16 Goals remain aggressive. Medical update provided to ex- Leanne at bedside. All questions answered. Medical updates to be limited to decision makers which are the patient's adult children (Leanne), as well as the patient ex- (Leanne ) who is involved with patient and children include in decision- making. Palliative will continue to see periodically to provide support and medical updates to family, per their request. * CODE STATUSfull code * Symptoms: == Dysphagia--Status post significant CVA, has had PEG tube placed == Dyspnea --Respiratory failure secondary to CVA, status post tracheostomy, pulmonary following; currently no apparent distress/ CXR bibasilar atelectasis, unchanged. == Encephalopathy--Significant CVA, "locked-in" state; follow-up MRI with no significant changes == Malnutrition--Status post PEG tube placement. tolerating TF; having bowel movements == depression/anxiety -- At risk for related to "locked in status", communication difficulties, situational, but would likely benefit from anti- depressant. Family reports tearful at times when they talk to him. d/w medical attending, celexa 20mg QD had been added-- d/c per family request. Family indicates has not seen any further tearful episodes since last week. * Palliative care will continue to follow during hospital course as condition evolves, to assist patient/decision-maker with understanding of medical conditions, weighing benefits/burdens of treatment options, for clarification of goals of treatment. Additionally will assist with any symptoms of palliative concern . Time Spent Total Floor Time (mins): 25 Face to Face Time (mins): 20 Attestation To help prompt me to consider important information that might be impacting today's encounter and assessment, information from prior notes written by myself or my colleagues may have been "brought forward" into today's note. My signature on this note, however, is an attestation that I personally performed the exam, history, and/or decision-making noted today, and, unless otherwise indicated, the interactions with patient, family, and staff as well as the review of records all occurred today. I also attest that the listed assessment and stated plan reflect my best clinical judgment today based on the combination of historical information, prior notes, and today's exam/ interactions. When time spent is documented, it refers only to time spent today by the signer, or if indicated, combined time spent today by collaborating physician/nurse practitioner. Tiara Colin Jan 24, 2016 11:32
[2016-01-24] MEDS: INSULIN DETEMIR 100 UNITS/ML VIAL SQ SCH (20:38)
--- NOTE | 2016-01-24 22:49 | RADRPT ---
EXAM DATE/TIME: 01/24/2016 22:31 [facility] COMPARISON: No previous studies available for comparison. INDICATIONS : Short of breath. MEDICAL HISTORY : Hypertension. Diabetes mellitus type II. SURGICAL HISTORY : None. ENCOUNTER: Subsequent ACUITY: 1 month PAIN SCORE: Non-responsive. LOCATION: Bilateral chest FINDINGS: A single view of the chest demonstrates a tracheostomy tube with persistently small lung volumes. Mil d pulmonary vascular congestion. No focal infiltrate.. The cardiomediastinal contours are unremarkab le. Osseous structures are intact. CONCLUSION: Persistent small bilateral lung volumes. Tracheostomy tube in good position. Sheldon Garcia MD on January 24, 2016 at 22:46 Board Certified Radiologist. This report was verified electronically.
[2016-01-25] VITALS (8 sets, daily range): BP systolic 107–138; BP diastolic 62–74; PULSE 85–119; RESP 19–23; TEMP 96.8–99.2; O2SAT 96–99
[2016-01-25] MEDS: INSULIN ASPART SUPPLEMENTAL SCALE SQ SCH ×4 (00:14→17:55)
[2016-01-25] MEDS: FREE WATER TUBE SCH ×6 (04:00→20:00)
[2016-01-25] MEDS: RESP: IPRATROPIUM 0.5 MG/2.5 ML NEB NEB SCH ×3 (07:24→19:57)
[2016-01-25 08:01] LABS: INTERNATIONAL NORMALIZED RATIO 1.8 RATIO
[2016-01-25] MEDS: LACTOBACILLUS ACIDOPHILUS 1 GM PACKET TUBE SCH ×2 (08:11→22:14)
[2016-01-25] MEDS: levETIRAcetam 500 MG/5 ML UDC TUBE SCH ×2 (08:11→22:14)
[2016-01-25] MEDS: METOPROLOL TARTRATE 50 MG TAB GT SCH ×3 (08:11→17:54)
[2016-01-25] MEDS: RANITIDINE HCL SYRUP 150 MG/10 ML UDC PO SCH (08:11)
[2016-01-25] MEDS: NYSTATIN 100,000 U/GM PWD 15 GM BTL TOPICAL SCH ×2 (08:11→22:14)
[2016-01-25] MEDS: SENNOSIDES SYRUP 8.8 MG/5 ML CUP TUBE SCH ×2 (08:14→22:13)
--- NOTE | 2016-01-25 08:37 | HHI.PR ---
Subjective Remarks 60-year-old male with past medical history of paroxysmal atrial fibrillation, hypertension, stage III a non-Hodgkin's lymphoma status post a chemotherapy last year.He received Rituxan CHOP.He presented to [facility] emergency department with altered mental status. 01/22/16-patient seen and examined; open his eyes to verbal stimuli. No acute event overnight. Afebrile. Mom by the bedside 01/23/16-patient seen and examined; no change and stable. Currently afebrile 01/24/16-patient seen and examined. Open his eyes to verbal stimuli, vital stable and no acute event overnight. Mom at the bedside 01/25/16-patient seen and examined. Resting and no acute event overnight. Afebrile Objective Vitals Vital Signs Date Time Temp Pulse Resp B/P Pulse Ox O2 Delivery O2 Flow Rate FiO2 01/25/16 08:23 98.7 111 20 111/74 98 01/25/16 07:24 97 T-piece 6.00 35 01/25/16 05:30 99.2 119 23 138/71 97 01/25/16 00:40 97.8 89 23 118/72 96 01/25/16 00:14 T-Piece 7.00 40 01/24/16 20:30 98.8 90 22 116/65 97 01/24/16 20:21 98 T-piece 6.00 40 01/24/16 20:00 93 01/24/16 16:00 99.3 95 18 104/66 97 01/24/16 12:40 98.7 96 18 124/75 100 01/24/16 10:41 98 T-Piece 7.00 40 I/O 01/24/16 01/24/16 01/24/16 01/25/16 01/25/16 01/25/16 06:59 14:59 22:59 06:59 14:59 22:59 Intake Total 0 ml 0 ml Output Total 1000 ml 1600 ml 400 ml 1800 ml Balance -1000 ml -1600 ml -400 ml -1800 ml Intake Oral 0 ml 0 ml Output Urine Total 1000 ml 1600 ml 400 ml 1800 ml # Bowel Movements 1 1 1 Result Diagram: 01/22/16 0600 Procedures PEG and trach A/P Problem List: (1) CVA (cerebral vascular accident) Status: Acute (2) Fever Status: Resolved (3) Acute respiratory failure Status: Resolved (4) A-fib Status: Chronic (5) Non-Hodgkin lymphoma Status: Chronic (6) DM (diabetes mellitus) Status: Chronic Assessment and Plan 60 yrs old man with 1) CVA (cerebral vascular accident); 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 Continue Keppra and Coumadin- neurology was reconsulted.Palliative care following. (2)fever- now resolved. CXR and UA negative. blood cultures negative and sputum culture with normal respiratory bharti- ID follow-up appreciated- continue to monitor temps- antipyretics as needed. (3) Acute respiratory failure: Secondary to CVA, Status post tracheostomy. Continue pulmonary toilet and neb treatments as needed.Pulmonary following. (4) acute renal failure/ hypernatremia/hypokalemia-resolved with IV fluid and water flush via PEG ; continue to monitor renal function and electrolytes renal sonogram with no hydronephrosis. Appreciate input from nephrology (5) A-fib: continue Lopressor, warfarin. Echocardiogram completed in November shows preserved EF (6) Non-Hodgkin lymphoma s/p brain biopsy on December 13, by Neurosurgery, Dr. Marin - Pathology consistent with acute infarct without evidence of lymphoma Seen by Oncology, Dr. Whyte, who has signed off for current admission as no active oncology issues (7) DM (diabetes mellitus): continue Levemir with sliding scale- monitor and adjust the regimen as needed. DVT prophylaxis with Coumadin. Continue with current treatment; check CBC/BMP in a.m. Mikie Bundy MD Jan 25, 2016 08:37
[2016-01-25] MEDS: SODIUM CHLOR 0.45% 1000 ML INJ 1,000 ML IV SCH (11:00)
[2016-01-25] MEDS: INSULIN DETEMIR 100 UNITS/ML VIAL SQ SCH (22:14)
[2016-01-26] VITALS (10 sets, daily range): BP systolic 110–123; BP diastolic 62–73; PULSE 80–109; RESP 18–21; TEMP 96.1–99.2; O2SAT 97–99
[2016-01-26] MEDS: FREE WATER TUBE SCH ×7 (04:00→23:56)
[2016-01-26] MEDS: INSULIN ASPART SUPPLEMENTAL SCALE SQ SCH ×5 (06:01→23:56)
--- NOTE | 2016-01-26 07:00 | HHI.PR ---
Subjective Remarks 60-year-old male with past medical history of paroxysmal atrial fibrillation, hypertension, stage III a non-Hodgkin's lymphoma status post a chemotherapy last year.He received Rituxan CHOP.He presented to [facility] emergency department with altered mental status. 01/22/16-patient seen and examined; open his eyes to verbal stimuli. No acute event overnight. Afebrile. Mom by the bedside 01/23/16-patient seen and examined; no change and stable. Currently afebrile 01/24/16-patient seen and examined. Open his eyes to verbal stimuli, vital stable and no acute event overnight. Mom at the bedside 01/25/16-patient seen and examined. Resting and no acute event overnight. Afebrile 01/26/16-patient seen and examined.NO acute event overnight. Afebrile and no change Objective Vitals Vital Signs Date Time Temp Pulse Resp B/P Pulse Ox O2 Delivery O2 Flow Rate FiO2 01/26/16 04:19 82 01/26/16 04:00 99.2 100 20 115/62 98 01/26/16 00:00 97.0 80 20 110/68 99 01/25/16 22:00 98 T-Piece 7.00 35 01/25/16 20:45 97.5 85 19 107/62 99 01/25/16 19:58 97 T-piece 35 01/25/16 17:04 96.8 89 21 115/66 97 01/25/16 13:29 97.6 85 20 125/68 97 01/25/16 10:37 T-Piece 6.00 35 01/25/16 08:23 98.7 111 20 111/74 98 01/25/16 07:24 97 T-piece 6.00 35 I/O 01/25/16 01/25/16 01/25/16 01/26/16 01/26/16 01/26/16 07:00 15:00 23:00 07:00 15:00 23:00 Intake Total 0 ml 0 ml 800 ml Output Total 1800 ml 950 ml 350 ml 1000 ml Balance -1800 ml -950 ml -350 ml -200 ml Intake Oral 0 ml 0 ml 0 ml Other 800 ml Output Urine Total 1800 ml 950 ml 350 ml 1000 ml # Bowel Movements 1 0 0 0 Result Diagram: 01/22/16 0600 Procedures PEG and trach A/P Problem List: (1) CVA (cerebral vascular accident) Status: Acute (2) Fever Status: Resolved (3) Acute respiratory failure Status: Resolved (4) A-fib Status: Chronic (5) Non-Hodgkin lymphoma Status: Chronic (6) DM (diabetes mellitus) Status: Chronic Assessment and Plan 60 yrs old man with 1) CVA (cerebral vascular accident); 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 Continue Keppra and Coumadin- neurology was reconsulted.Palliative care following. (2)fever- now resolved. CXR and UA negative. blood cultures negative and sputum culture with normal respiratory bharti- ID follow-up appreciated- continue to monitor temps- antipyretics as needed. (3) Acute respiratory failure: Secondary to CVA, Status post tracheostomy. Continue pulmonary toilet and neb treatments as needed.Pulmonary following. (4) acute renal failure/ hypernatremia/hypokalemia-resolved with IV fluid and water flush via PEG ; continue to monitor renal function and electrolytes renal sonogram with no hydronephrosis. Appreciate input from nephrology (5) A-fib: continue Lopressor, warfarin. Echocardiogram completed in November shows preserved EF (6) Non-Hodgkin lymphoma s/p brain biopsy on December 13, by Neurosurgery, Dr. Marin - Pathology consistent with acute infarct without evidence of lymphoma Seen by Oncology, Dr. Whyte, who has signed off for current admission as no active oncology issues (7) DM (diabetes mellitus): continue Levemir with sliding scale- monitor and adjust the regimen as needed. DVT prophylaxis with Coumadin. Continue with current treatment; check CBC/BMP in a.m. Mikie Bundy MD Jan 26, 2016 07:00
[2016-01-26 07:31] LABS: AUTOMATED NEUTROPHIL # 3.8 TH/MM3 (1.8-7.7); BASOPHIL % 0.8 % (0.0-2.0); EOSINOPHIL # 0.2 TH/MM3 (0-0.4); EOSINOPHIL % 3.5 % (0.0-4.0); HEMO FLAGS DIFF FINAL; LYMPHOCYTE # 1.1 TH/MM3 (1.0-4.8); MEAN CORPUSCULAR HEMOGLOBIN 25.9 PG (27.0-34.0); MEAN CORPUSCULAR HGB CONC 31.6 % (32.0-36.0); MONO % 8.1 % (0.0-8.0); NEUT % 67.6 % (16.0-70.0); PLATELET COUNT 162 TH/MM3 (150-450); RED BLOOD COUNT 3.78 MIL/MM3 (4.50-5.90); RED CELL DISTRIBUTION WIDTH 15.2 % (11.6-17.2); WHITE BLOOD COUNT 5.6 TH/MM3 (4.0-11.0)
[2016-01-26 07:34] LABS: INTERNATIONAL NORMALIZED RATIO 1.7 RATIO; PROTHROMBIN TIME - PATIENT 17.8 SEC (9.8-11.4)
[2016-01-26] MEDS: RESP: IPRATROPIUM 0.5 MG/2.5 ML NEB NEB SCH ×3 (07:36→19:56)
--- NOTE | 2016-01-26 07:50 | HHI.PR ---
Subjective Remarks afib Objective Vital Signs Date Time Temp Pulse Resp B/P Pulse Ox O2 Delivery O2 Flow Rate FiO2 01/26/16 07:39 99 T-piece 28 01/26/16 04:19 82 01/26/16 04:00 99.2 100 20 115/62 98 01/26/16 00:00 97.0 80 20 110/68 99 01/25/16 22:00 98 T-Piece 7.00 35 01/25/16 20:45 97.5 85 19 107/62 99 01/25/16 19:58 97 T-piece 35 01/25/16 17:04 96.8 89 21 115/66 97 01/25/16 13:29 97.6 85 20 125/68 97 01/25/16 10:37 T-Piece 6.00 35 01/25/16 08:23 98.7 111 20 111/74 98 I/O 01/25/16 01/25/16 01/25/16 01/26/16 01/26/16 01/26/16 07:00 15:00 23:00 07:00 15:00 23:00 Intake Total 0 ml 0 ml 800 ml Output Total 1800 ml 950 ml 350 ml 1000 ml Balance -1800 ml -950 ml -350 ml -200 ml Intake Oral 0 ml 0 ml 0 ml Other 800 ml Output Urine Total 1800 ml 950 ml 350 ml 1000 ml # Bowel Movements 1 0 0 0 Result Diagram: 01/26/16 0702 01/22/16 0600 Objective Remarks pupil = AWAKENS AND LOOKS TO LEFT FOR ME NOT MOVING TONGUE OR LEFT ARM THIS AM Assessment and Plan Assessment and Plan mrv shows basilar occlusion and mri shows sign bilat occipital and some small r cbllr acute cva the colin is slightly hyperintense almost full thickness and looks like major pontine infarct however not as bright as we usually see with infarct he could have a penumbra effect in colin so could be recoverable or just needs time to change signal plan is to keep bp up recheck mri friday if more bright then family thinking of decisions no sedatives i rec chemical code only will consider we discussed and we will keep anticoag going for now and i told her risk of bleeding into upper brain with some blood signal in original cva i dw dr vick and nitin cancino and neither felt it would be helpful to try and extract basilar clot and could kill him they both felt the colin was infarcted he could be locked in he is acting as if colin is infarcted although slight chance it could be stunned/ penumbra neuro will follow over i will be back 12/25/15 i dw family at length and reviewed films with them no major change in brainstem brightness on mri inr 3.5 target 2-2.5 i think they would like to see how he does over the next 3 months and will probably go for trach if needed and peg he is locked in for the most part but full aware 12/26/15 inr 2.6 i kenna son yest had some vertical eye movements to command monitor 12/27/15 locked in so he can hear all that is said family devoted and i expect peg+/-trach and they will see how he does next 6 months inr 2.4 doesnt always respond as will not awaken as quick as others 12/29/15 doing more with eyes locked in for trach and peg coumadin management per med team for that sq hep ok if need off coumadin for trach ------ 12/31/15 stable neuro for trach peg tues i kenan daughter 01/04/16 asleep now sedation last two days with trach and peg could affect his neuro fxt will dw family needs coumadin restarted bp a little low try and keep >120/ if possible 01/26/16 STABLE NEURO LOCKED IN NO MAJOR CHANGE OK TO REHAB BY ME Steven De Leon MD Jan 26, 2016 07:50
[2016-01-26 07:58] LABS: BICARBONATE 28.9 MEQ/L (21.0-32.0); POTASSIUM 3.1 MEQ/L (3.5-5.1)
[2016-01-26] MEDS: LACTOBACILLUS ACIDOPHILUS 1 GM PACKET TUBE SCH ×2 (09:00→21:36)
[2016-01-26] MEDS: RANITIDINE HCL SYRUP 150 MG/10 ML UDC PO SCH (09:02)
[2016-01-26] MEDS: levETIRAcetam 500 MG/5 ML UDC TUBE SCH ×2 (09:02→21:36)
[2016-01-26] MEDS: SENNOSIDES SYRUP 8.8 MG/5 ML CUP TUBE SCH ×2 (09:02→21:36)
[2016-01-26] MEDS: METOPROLOL TARTRATE 50 MG TAB GT SCH ×3 (09:03→18:31)
[2016-01-26] MEDS: NYSTATIN 100,000 U/GM PWD 15 GM BTL TOPICAL SCH ×2 (09:04→21:36)
[2016-01-26] MEDS: SODIUM CHLOR 0.45% 1000 ML INJ 1,000 ML IV SCH (13:00)
[2016-01-26] MEDS: INSULIN DETEMIR 100 UNITS/ML VIAL SQ SCH (21:36)
[2016-01-27] VITALS (11 sets, daily range): BP systolic 127–146; BP diastolic 70–86; PULSE 89–109; RESP 20; TEMP 96.8–100.2; O2SAT 94–99
[2016-01-27] MEDS: FREE WATER TUBE SCH ×6 (04:00→23:44)
[2016-01-27] MEDS: INSULIN ASPART SUPPLEMENTAL SCALE SQ SCH ×4 (05:52→23:44)
--- NOTE | 2016-01-27 07:45 | HHI.PR ---
Subjective Remarks 60-year-old male with past medical history of paroxysmal atrial fibrillation, hypertension, stage III a non-Hodgkin's lymphoma status post a chemotherapy last year.He received Rituxan CHOP.He presented to [facility] emergency department with altered mental status. 01/22/16-patient seen and examined; open his eyes to verbal stimuli. No acute event overnight. Afebrile. Mom by the bedside 01/23/16-patient seen and examined; no change and stable. Currently afebrile 01/24/16-patient seen and examined. Open his eyes to verbal stimuli, vital stable and no acute event overnight. Mom at the bedside 01/25/16-patient seen and examined. Resting and no acute event overnight. Afebrile 01/26/16-patient seen and examined.NO acute event overnight. Afebrile and no change 01/27/16-patient seen and examined. stable and no change. nonverbal. K is low. Afebrile Objective Vitals Vital Signs Date Time Temp Pulse Resp B/P Pulse Ox O2 Delivery O2 Flow Rate FiO2 01/27/16 04:38 96.8 103 20 135/75 95 01/27/16 00:15 97.9 95 20 127/70 94 01/26/16 21:00 98 T-Piece 28 Humidified 01/26/16 20:15 96.1 82 18 118/69 97 01/26/16 19:56 98 T-piece 6.00 28 01/26/16 19:20 98 T-Piece 28 Humidified 01/26/16 17:23 104 01/26/16 16:02 97.3 87 20 117/69 98 01/26/16 12:00 96.4 92 21 123/67 98 01/26/16 08:23 98 T-Piece Humidified 01/26/16 08:00 98.5 109 20 122/73 98 I/O 01/26/16 01/26/16 01/26/16 01/27/16 01/27/16 01/27/16 07:00 15:00 23:00 07:00 15:00 23:00 Intake Total 800 ml 2576 ml Output Total 1000 ml 1100 ml 0 ml 1100 ml Balance -200 ml -1100 ml 0 ml 1476 ml Intake Oral 0 ml IV Total 976 ml Other 800 ml 1600 ml Output Urine Total 1000 ml 1100 ml 1100 ml Tube Feeding Residual Discard 0 ml # Bowel Movements 0 1 2 Result Diagram: 01/26/16 0702 01/26/16 0702 Procedures PEG and trach A/P Problem List: (1) CVA (cerebral vascular accident) Status: Acute (2) Fever Status: Resolved (3) Acute respiratory failure Status: Resolved (4) A-fib Status: Chronic (5) Non-Hodgkin lymphoma Status: Chronic (6) DM (diabetes mellitus) Status: Chronic Assessment and Plan 60 yrs old man with 1) CVA (cerebral vascular accident); 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 Continue Keppra and Coumadin- neurology was reconsulted.Palliative care following. (2)fever- now resolved. CXR and UA negative. blood cultures negative and sputum culture with normal respiratory bharti- ID follow-up appreciated- continue to monitor temps- antipyretics as needed. (3) Acute respiratory failure: Secondary to CVA, Status post tracheostomy. Continue pulmonary toilet and neb treatments as needed.Pulmonary following. (4) acute renal failure/ hypernatremia/hypokalemia-resolved with IV fluid and water flush via PEG ; continue to monitor renal function and electrolytes renal sonogram with no hydronephrosis. Appreciate input from nephrology (5) A-fib: continue Lopressor, warfarin. Echocardiogram completed in November shows preserved EF (6) Non-Hodgkin lymphoma s/p brain biopsy on December 13, by Neurosurgery, Dr. Marin - Pathology consistent with acute infarct without evidence of lymphoma Seen by Oncology, Dr. Whyte, who has signed off for current admission as no active oncology issues (7) DM (diabetes mellitus): continue Levemir with sliding scale- monitor and adjust the regimen as needed. 8-Hypokalemia: Replace electrolyte and monitor DVT prophylaxis with Coumadin. Mikie Bundy MD Jan 27, 2016 07:45
[2016-01-27] MEDS: levETIRAcetam 500 MG/5 ML UDC TUBE SCH ×2 (08:04→20:44)
[2016-01-27] MEDS: NYSTATIN 100,000 U/GM PWD 15 GM BTL TOPICAL SCH ×2 (08:04→20:45)
[2016-01-27] MEDS: METOPROLOL TARTRATE 50 MG TAB GT SCH ×3 (08:04→17:17)
[2016-01-27] MEDS: RANITIDINE HCL SYRUP 150 MG/10 ML UDC PO SCH (08:04)
[2016-01-27] MEDS: LACTOBACILLUS ACIDOPHILUS 1 GM PACKET TUBE SCH ×2 (08:05→20:43)
[2016-01-27] MEDS: SENNOSIDES SYRUP 8.8 MG/5 ML CUP TUBE SCH ×2 (08:05→20:43)
[2016-01-27 08:12] LABS: INTERNATIONAL NORMALIZED RATIO 1.8 RATIO; PROTHROMBIN TIME - PATIENT 18.8 SEC (9.8-11.4)
[2016-01-27] MEDS: RESP: IPRATROPIUM 0.5 MG/2.5 ML NEB NEB SCH ×3 (09:11→20:57)
[2016-01-27] MEDS: SODIUM CHLOR 0.45% 1000 ML INJ 1,000 ML IV SCH (11:00)
[2016-01-27] MEDS: ACETAMINOPHEN 650 MG/20.3 ML UDC TUBE PRN (17:17)
[2016-01-27] MEDS: WARFARIN SOD 4 MG TAB PO SCH (17:18)
[2016-01-27] MEDS: INSULIN DETEMIR 100 UNITS/ML VIAL SQ SCH (20:43)
[2016-01-27] MEDS: ACETAMINOPHEN/HYDROcodone 325 MG/5 MG TAB PO PRN (20:44)
[2016-01-28] VITALS (8 sets, daily range): BP systolic 125–146; BP diastolic 74–85; PULSE 92–123; RESP 20–24; TEMP 96.6–101.2; O2SAT 96–100
[2016-01-28] MEDS: FREE WATER TUBE SCH ×5 (04:00→20:00)
[2016-01-28] MEDS: INSULIN ASPART SUPPLEMENTAL SCALE SQ SCH ×3 (05:03→18:00)
[2016-01-28 05:55] LABS: INTERNATIONAL NORMALIZED RATIO 2.1 RATIO; PROTHROMBIN TIME - PATIENT 22.4 SEC (9.8-11.4)
[2016-01-28 06:31] LABS: BICARBONATE 28.1 MEQ/L (21.0-32.0); POTASSIUM 3.7 MEQ/L (3.5-5.1)
--- NOTE | 2016-01-28 07:27 | HHI.PR ---
Subjective Remarks 60-year-old male with past medical history of paroxysmal atrial fibrillation, hypertension, stage III a non-Hodgkin's lymphoma status post a chemotherapy last year.He received Rituxan CHOP.He presented to [facility] emergency department with altered mental status. 01/22/16-patient seen and examined; open his eyes to verbal stimuli. No acute event overnight. Afebrile. Mom by the bedside 01/23/16-patient seen and examined; no change and stable. Currently afebrile 01/24/16-patient seen and examined. Open his eyes to verbal stimuli, vital stable and no acute event overnight. Mom at the bedside 01/25/16-patient seen and examined. Resting and no acute event overnight. Afebrile 01/26/16-patient seen and examined.NO acute event overnight. Afebrile and no change 01/27/16-patient seen and examined. stable and no change. nonverbal. K is low. Afebrile 01/28/16-patient seen and examined. Afebrile and no changes overnight. Objective Vitals Vital Signs Date Time Temp Pulse Resp B/P Pulse Ox O2 Delivery O2 Flow Rate FiO2 01/28/16 04:15 98.1 109 20 130/78 96 01/28/16 00:20 96.6 92 20 133/74 97 01/27/16 21:44 18 01/27/16 21:01 99 T-piece 01/27/16 20:25 98.1 89 20 135/84 99 01/27/16 20:00 94 01/27/16 20:00 99 T-Piece 01/27/16 17:45 98 Humidified 6.00 01/27/16 16:00 100.2 93 20 127/77 95 01/27/16 16:00 98 T-Piece 6.00 28 01/27/16 12:00 99.8 98 20 127/86 97 01/27/16 10:30 106 01/27/16 09:15 95 T-piece 6.00 01/27/16 08:00 97.5 108 20 146/76 96 I/O 01/27/16 01/27/16 01/27/16 01/28/16 01/28/16 01/28/16 07:00 15:00 23:00 07:00 15:00 23:00 Intake Total 2576 ml Output Total 1100 ml 1000 ml 1300 ml 1000 ml Balance 1476 ml -1000 ml -1300 ml -1000 ml IV Total 976 ml Other 1600 ml Output Urine Total 1100 ml 1000 ml 1300 ml 1000 ml # Bowel Movements 2 1 1 1 Result Diagram: 01/26/16 0702 01/28/16 0500 Procedures PEG and trach A/P Problem List: (1) CVA (cerebral vascular accident) Status: Acute (2) Fever Status: Resolved (3) Acute respiratory failure Status: Resolved (4) A-fib Status: Chronic (5) Non-Hodgkin lymphoma Status: Chronic (6) DM (diabetes mellitus) Status: Chronic Assessment and Plan 60 yrs old man with 1) CVA (cerebral vascular accident); 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 Continue Keppra and Coumadin- neurology was reconsulted.Palliative care following. (2)fever- now resolved. CXR and UA negative. blood cultures negative and sputum culture with normal respiratory bharti- ID follow-up appreciated- continue to monitor temps- antipyretics as needed. (3) Acute respiratory failure: Secondary to CVA, Status post tracheostomy. Continue pulmonary toilet and neb treatments as needed.Pulmonary following. (4) acute renal failure/ hypernatremia/hypokalemia-resolved with IV fluid and water flush via PEG ; continue to monitor renal function and electrolytes renal sonogram with no hydronephrosis. Appreciate input from nephrology (5) A-fib: continue Lopressor, warfarin. Echocardiogram completed in November shows preserved EF (6) Non-Hodgkin lymphoma s/p brain biopsy on December 13, by Neurosurgery, Dr. Marin - Pathology consistent with acute infarct without evidence of lymphoma Seen by Oncology, Dr. Whyte, who has signed off for current admission as no active oncology issues (7) DM (diabetes mellitus): continue Levemir with sliding scale- monitor and adjust the regimen as needed. 8-Hypokalemia: Resolved DVT prophylaxis with Coumadin. Mikie Bundy MD Jan 28, 2016 07:27
[2016-01-28] MEDS: LACTOBACILLUS ACIDOPHILUS 1 GM PACKET TUBE SCH ×2 (07:48→22:10)
[2016-01-28] MEDS: RANITIDINE HCL SYRUP 150 MG/10 ML UDC PO SCH (07:48)
[2016-01-28] MEDS: levETIRAcetam 500 MG/5 ML UDC TUBE SCH ×2 (07:48→22:10)
[2016-01-28] MEDS: SENNOSIDES SYRUP 8.8 MG/5 ML CUP TUBE SCH ×2 (07:48→22:10)
[2016-01-28] MEDS: ACETAMINOPHEN 650 MG/20.3 ML UDC TUBE PRN (07:48)
[2016-01-28] MEDS: METOPROLOL TARTRATE 50 MG TAB GT SCH ×3 (07:49→18:01)
[2016-01-28] MEDS: NYSTATIN 100,000 U/GM PWD 15 GM BTL TOPICAL SCH ×2 (07:49→22:10)
[2016-01-28] MEDS: RESP: IPRATROPIUM 0.5 MG/2.5 ML NEB NEB SCH ×3 (09:08→20:00)
[2016-01-28] MEDS: SODIUM CHLOR 0.45% 1000 ML INJ 1,000 ML IV SCH (12:53)
[2016-01-28] MEDS: WARFARIN SOD 4 MG TAB PO SCH (16:42)
[2016-01-28] MEDS: INSULIN DETEMIR 100 UNITS/ML VIAL SQ SCH (22:10)
[2016-01-28] MEDS: ACETIC ACID 0.25% IRRIGATION SCH (22:13)
[2016-01-28] MEDS: IRR IRRIGATION SCH (22:13)
[2016-01-29] VITALS (13 sets, daily range): BP systolic 116–140; BP diastolic 67–82; PULSE 88–113; RESP 18–21; TEMP 97.4–99; O2SAT 95–100
[2016-01-29] MEDS: INSULIN ASPART SUPPLEMENTAL SCALE SQ SCH ×4 (00:05→17:32)
[2016-01-29] MEDS: FREE WATER TUBE SCH ×6 (04:00→20:00)
[2016-01-29] MEDS: ACETIC ACID 0.25% IRRIGATION SCH ×3 (06:53→21:36)
[2016-01-29] MEDS: IRR IRRIGATION SCH ×3 (06:53→21:36)
--- NOTE | 2016-01-29 07:59 | HHI.PR ---
Subjective Remarks 60-year-old male with past medical history of paroxysmal atrial fibrillation, hypertension, stage III a non-Hodgkin's lymphoma status post a chemotherapy last year.He received Rituxan CHOP.He presented to [facility] emergency department with altered mental status. 01/22/16-patient seen and examined; open his eyes to verbal stimuli. No acute event overnight. Afebrile. Mom by the bedside 01/23/16-patient seen and examined; no change and stable. Currently afebrile 01/24/16-patient seen and examined. Open his eyes to verbal stimuli, vital stable and no acute event overnight. Mom at the bedside 01/25/16-patient seen and examined. Resting and no acute event overnight. Afebrile 01/26/16-patient seen and examined.NO acute event overnight. Afebrile and no change 01/27/16-patient seen and examined. stable and no change. nonverbal. K is low. Afebrile 01/28/16-patient seen and examined. Afebrile and no changes overnight. 01/29/16-patient seen and examined; patient had one 101.2 at 8 AM yesterday however currently afebrile for the past 24 hours. No acute event overnight Objective Vitals Vital Signs Date Time Temp Pulse Resp B/P Pulse Ox O2 Delivery O2 Flow Rate FiO2 01/29/16 04:27 97.4 102 21 140/72 95 01/29/16 04:26 97 T-piece 5.00 28 01/29/16 00:43 97.8 96 21 122/75 98 01/28/16 20:00 101 01/28/16 20:00 99.0 94 21 125/79 100 01/28/16 20:00 96 T-piece 6.00 28 01/28/16 19:45 T-Piece 4.00 28 01/28/16 17:30 95 01/28/16 17:30 96 T-Piece 6.00 01/28/16 16:53 99.3 103 22 128/74 96 01/28/16 12:37 98.6 97 22 135/77 96 01/28/16 09:11 98 T-piece 28 01/28/16 08:33 97 T-Piece 28 01/28/16 08:09 101.2 123 24 146/85 97 I/O 01/28/16 01/28/16 01/28/16 01/29/16 01/29/16 01/29/16 07:00 15:00 23:00 07:00 15:00 23:00 Intake Total 1269 ml Output Total 1000 ml 1650 ml 850 ml Balance -1000 ml -1650 ml 419 ml IV Total 1269 ml Output Urine Total 1000 ml 1650 ml 850 ml # Bowel Movements 1 1 Result Diagram: 01/26/16 0702 01/28/16 0500 Procedures PEG and trach A/P Problem List: (1) CVA (cerebral vascular accident) Status: Acute (2) Fever Status: Resolved (3) Acute respiratory failure Status: Resolved (4) A-fib Status: Chronic (5) Non-Hodgkin lymphoma Status: Chronic (6) DM (diabetes mellitus) Status: Chronic Assessment and Plan 60 yrs old man with 1) CVA (cerebral vascular accident); 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 Continue Keppra and Coumadin- neurology was reconsulted.Palliative care following. (2)fever- now resolved. CXR and UA negative. blood cultures negative and sputum culture with normal respiratory bharti- ID follow-up appreciated- continue to monitor temps- antipyretics as needed. (3) Acute respiratory failure: Secondary to CVA, Status post tracheostomy. Continue pulmonary toilet and neb treatments as needed.Pulmonary following. (4) acute renal failure/ hypernatremia/hypokalemia-resolved with IV fluid and water flush via PEG ; continue to monitor renal function and electrolytes renal sonogram with no hydronephrosis. Appreciate input from nephrology (5) A-fib: continue Lopressor, warfarin. Echocardiogram completed in November shows preserved EF (6) Non-Hodgkin lymphoma s/p brain biopsy on December 13, by Neurosurgery, Dr. Marin - Pathology consistent with acute infarct without evidence of lymphoma Seen by Oncology, Dr. Whyte, who has signed off for current admission as no active oncology issues (7) DM (diabetes mellitus): continue Levemir with sliding scale- monitor and adjust the regimen as needed. 8-Hypokalemia: Resolved Decubitus ulcer: Wound care nurse consult and treatment per protocol DVT prophylaxis with Coumadin. Mikie Bundy MD Jan 29, 2016 07:58
[2016-01-29] MEDS: RESP: IPRATROPIUM 0.5 MG/2.5 ML NEB NEB SCH ×3 (08:23→21:09)
[2016-01-29] MEDS: SENNOSIDES SYRUP 8.8 MG/5 ML CUP TUBE SCH ×2 (09:00→21:00)
[2016-01-29] MEDS: NYSTATIN 100,000 U/GM PWD 15 GM BTL TOPICAL SCH ×2 (09:00→21:36)
[2016-01-29] MEDS: LACTOBACILLUS ACIDOPHILUS 1 GM PACKET TUBE SCH ×2 (09:00→21:04)
[2016-01-29] MEDS: levETIRAcetam 500 MG/5 ML UDC TUBE SCH ×2 (09:00→21:04)
[2016-01-29] MEDS: RANITIDINE HCL SYRUP 150 MG/10 ML UDC PO SCH (09:00)
[2016-01-29] MEDS: METOPROLOL TARTRATE 50 MG TAB GT SCH ×3 (09:00→17:46)
[2016-01-29 13:07] LABS: INTERNATIONAL NORMALIZED RATIO 2.1 RATIO
[2016-01-29] MEDS: WARFARIN SOD 4 MG TAB PO SCH (16:15)
[2016-01-29] MEDS: ACETAMINOPHEN/HYDROcodone 325 MG/5 MG TAB PO PRN (18:21)
[2016-01-29] MEDS: INSULIN DETEMIR 100 UNITS/ML VIAL SQ SCH (21:05)
[2016-01-29] MEDS: SODIUM CHLOR 0.45% 1000 ML INJ 1,000 ML IV SCH (21:15)
[2016-01-30] VITALS (11 sets, daily range): BP systolic 108–131; BP diastolic 67–76; PULSE 88–114; RESP 14–22; TEMP 97.3–98.9; O2SAT 92–100
[2016-01-30] MEDS: INSULIN ASPART SUPPLEMENTAL SCALE SQ SCH ×4 (00:02→18:00)
[2016-01-30] MEDS: FREE WATER TUBE SCH ×6 (04:00→20:00)
[2016-01-30] MEDS: ACETAMINOPHEN/HYDROcodone 325 MG/5 MG TAB PO PRN ×2 (04:30→13:48)
[2016-01-30] MEDS: ACETIC ACID 0.25% IRRIGATION SCH ×3 (06:12→22:48)
[2016-01-30] MEDS: IRR IRRIGATION SCH ×3 (06:12→22:48)
--- NOTE | 2016-01-30 07:39 | HHI.PR ---
Subjective Remarks 60-year-old male with past medical history of paroxysmal atrial fibrillation, hypertension, stage III a non-Hodgkin's lymphoma status post a chemotherapy last year.He received Rituxan CHOP.He presented to [facility] emergency department with altered mental status. 01/22/16-patient seen and examined; open his eyes to verbal stimuli. No acute event overnight. Afebrile. Mom by the bedside 01/23/16-patient seen and examined; no change and stable. Currently afebrile 01/24/16-patient seen and examined. Open his eyes to verbal stimuli, vital stable and no acute event overnight. Mom at the bedside 01/25/16-patient seen and examined. Resting and no acute event overnight. Afebrile 01/26/16-patient seen and examined.NO acute event overnight. Afebrile and no change 01/27/16-patient seen and examined. stable and no change. nonverbal. K is low. Afebrile 01/28/16-patient seen and examined. Afebrile and no changes overnight. 01/29/16-patient seen and examined; patient had one 101.2 at 8 AM yesterday however currently afebrile for the past 24 hours. No acute event overnight 01/30/16-patient seen and examined; diagnosed with stage III decubitus ulcer; currently afebrile and no acute event overnight .sister by the bedside l Objective Vitals Vital Signs Date Time Temp Pulse Resp B/P Pulse Ox O2 Delivery O2 Flow Rate FiO2 01/30/16 05:29 97.3 114 20 118/76 97 01/30/16 00:23 97.6 108 21 131/75 98 01/30/16 00:00 97 T-Piece 28 01/29/16 21:09 96 T-piece 01/29/16 20:13 99.0 101 20 129/77 96 01/29/16 20:00 111 01/29/16 16:28 98.4 97 18 116/67 96 01/29/16 13:34 100 T-piece 28 01/29/16 12:03 97.4 88 18 128/78 99 01/29/16 10:20 97 T-piece 01/29/16 08:23 98 T-piece 01/29/16 08:18 98.6 113 19 117/82 95 I/O 01/29/16 01/29/16 01/29/16 01/30/16 01/30/16 01/30/16 06:59 14:59 22:59 06:59 14:59 22:59 Intake Total 1269 ml 405 ml Output Total 850 ml 1150 ml 2000 ml Balance 419 ml -1150 ml -1595 ml IV Total 1269 ml Tube Feeding 405 ml Output Urine Total 850 ml 1150 ml 2000 ml # Bowel Movements 1 0 Result Diagram: 01/26/16 0702 01/28/16 0500 Objective Remarks GENERAL: Well-nourished, well-developed patient. SKIN: Warm and dry. HEAD: Normocephalic. EYES: No scleral icterus. No injection or drainage. NECK: Supple, trachea midline. No JVD or lymphadenopathy. CARDIOVASCULAR: Regular rate and rhythm without murmurs, gallops, or rubs. RESPIRATORY: Breath sounds equal bilaterally. No accessory muscle use. GASTROINTESTINAL: Abdomen soft, non-tender, nondistended. MUSCULOSKELETAL: No cyanosis, or edema. BACK: Nontender without obvious deformity. No CVA tenderness. 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 Continue Keppra and Coumadin- neurology was reconsulted.Palliative care following. (2)fever- now resolved. CXR and UA negative. blood cultures negative and sputum culture with normal respiratory bharti- ID follow-up appreciated- continue to monitor temps- antipyretics as needed. (3) Acute respiratory failure: Secondary to CVA, Status post tracheostomy. Continue pulmonary toilet and neb treatments as needed.Pulmonary following. (4) acute renal failure/ hypernatremia/hypokalemia-resolved with IV fluid and water flush via PEG ; continue to monitor renal function and electrolytes renal sonogram with no hydronephrosis. Appreciate input from nephrology (5) A-fib: continue Lopressor, warfarin. Echocardiogram completed in November shows preserved EF (6) Non-Hodgkin lymphoma s/p brain biopsy on December 13, by Neurosurgery, Dr. Marin - Pathology consistent with acute infarct without evidence of lymphoma Seen by Oncology, Dr. Whyte, who has signed off for current admission as no active oncology issues (7) DM (diabetes mellitus): continue Levemir with sliding scale- monitor and adjust the regimen as needed. 8-Hypokalemia: Resolved Decubitus ulcer stage III: Wound care nurse input appreciated and treatment per protocol; repositioning Q2-3H; Body Straightener consult 2/2 hypoalbuminemia DVT prophylaxis with Coumadin. Mikie Bundy MD Jan 30, 2016 07:39
[2016-01-30] MEDS: RANITIDINE HCL SYRUP 150 MG/10 ML UDC PO SCH (07:44)
[2016-01-30] MEDS: LACTOBACILLUS ACIDOPHILUS 1 GM PACKET TUBE SCH ×2 (07:44→22:47)
[2016-01-30] MEDS: levETIRAcetam 500 MG/5 ML UDC TUBE SCH ×2 (07:44→22:47)
[2016-01-30] MEDS: SENNOSIDES SYRUP 8.8 MG/5 ML CUP TUBE SCH ×2 (07:44→21:00)
[2016-01-30] MEDS: NYSTATIN 100,000 U/GM PWD 15 GM BTL TOPICAL SCH ×2 (07:44→22:46)
[2016-01-30 08:26] LABS: INTERNATIONAL NORMALIZED RATIO 2.3 RATIO; PROTHROMBIN TIME - PATIENT 24.7 SEC (9.8-11.4)
[2016-01-30] MEDS: METOPROLOL TARTRATE 50 MG TAB GT SCH ×3 (09:00→18:01)
[2016-01-30] MEDS: RESP: IPRATROPIUM 0.5 MG/2.5 ML NEB NEB SCH ×3 (09:06→20:53)
[2016-01-30] MEDS: WARFARIN SOD 4 MG TAB PO SCH (15:29)
[2016-01-30 19:14] LABS: BICARBONATE 28.3 MEQ/L (21.0-32.0); POTASSIUM 3.4 MEQ/L (3.5-5.1)
[2016-01-30] MEDS: SODIUM CHLOR 0.45% 1000 ML INJ 1,000 ML IV SCH (20:03)
[2016-01-30] MEDS: INSULIN DETEMIR 100 UNITS/ML VIAL SQ SCH (22:46)
[2016-01-30] MEDS: SODIUM CHLORIDE 0.9% FLUSH 5 ML FLUSH IVF PRN (22:47)
[2016-01-31] VITALS (10 sets, daily range): BP systolic 123–140; BP diastolic 69–81; PULSE 89–107; RESP 20–24; TEMP 95.7–100.2; O2SAT 94–98
[2016-01-31] MEDS: INSULIN ASPART SUPPLEMENTAL SCALE SQ SCH ×4 (00:36→18:19)
[2016-01-31] MEDS: FREE WATER TUBE SCH ×5 (03:57→20:57)
[2016-01-31] MEDS: ACETIC ACID 0.25% IRRIGATION SCH ×3 (06:21→21:26)
[2016-01-31] MEDS: IRR IRRIGATION SCH ×3 (06:21→21:26)
--- NOTE | 2016-01-31 07:55 | HHI.PR ---
Subjective Remarks 60-year-old male with past medical history of paroxysmal atrial fibrillation, hypertension, stage III a non-Hodgkin's lymphoma status post a chemotherapy last year.He received Rituxan CHOP.He presented to [facility] emergency department with altered mental status. 01/22/16-patient seen and examined; open his eyes to verbal stimuli. No acute event overnight. Afebrile. Mom by the bedside 01/23/16-patient seen and examined; no change and stable. Currently afebrile 01/24/16-patient seen and examined. Open his eyes to verbal stimuli, vital stable and no acute event overnight. Mom at the bedside 01/25/16-patient seen and examined. Resting and no acute event overnight. Afebrile 01/26/16-patient seen and examined.NO acute event overnight. Afebrile and no change 01/27/16-patient seen and examined. stable and no change. nonverbal. K is low. Afebrile 01/28/16-patient seen and examined. Afebrile and no changes overnight. 01/29/16-patient seen and examined; patient had one 101.2 at 8 AM yesterday however currently afebrile for the past 24 hours. No acute event overnight 01/30/16-patient seen and examined; diagnosed with stage III decubitus ulcer; currently afebrile and no acute event overnight .sister by the bedside l 01/31/16-patient seen and examined; stable and no acute event overnight.Afebrile Objective Vitals Vital Signs Date Time Temp Pulse Resp B/P Pulse Ox O2 Delivery O2 Flow Rate FiO2 01/31/16 04:49 98.2 107 24 123/75 98 01/31/16 00:18 98.1 95 23 126/70 97 01/30/16 23:00 100 01/30/16 20:53 98 T-piece 6.00 28 01/30/16 20:53 98 T-piece 6.00 28 01/30/16 20:09 98.0 88 22 121/67 100 01/30/16 20:00 99 T-Piece 6.00 28 01/30/16 19:55 100 01/30/16 16:06 98.7 110 14 111/73 98 01/30/16 11:50 98.9 108 15 108/67 98 01/30/16 09:09 97 T-piece 28.00 01/30/16 09:09 97 T-piece 28 01/30/16 08:10 97.8 101 16 112/70 92 I/O 01/30/16 01/30/16 01/30/16 01/31/16 01/31/16 01/31/16 07:00 15:00 23:00 07:00 15:00 23:00 Intake Total 405 ml Output Total 2000 ml 800 ml 300 ml 1000 ml Balance -1595 ml -800 ml -300 ml -1000 ml Tube Feeding 405 ml Output Urine Total 2000 ml 800 ml 300 ml 1000 ml # Bowel Movements 0 0 0 0 Result Diagram: 01/30/16 1848 Objective Remarks GENERAL: Well-nourished, well-developed patient. SKIN: Warm and dry. HEAD: Normocephalic. EYES: No scleral icterus. No injection or drainage. NECK: Supple, trachea midline. No JVD or lymphadenopathy. CARDIOVASCULAR: Regular rate and rhythm without murmurs, gallops, or rubs. RESPIRATORY: Breath sounds equal bilaterally. No accessory muscle use. GASTROINTESTINAL: Abdomen soft, non-tender, nondistended. MUSCULOSKELETAL: No cyanosis, or edema. BACK: Nontender without obvious deformity. No CVA tenderness. 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 Continue Keppra and Coumadin- neurology was reconsulted.Palliative care following. (2)fever- now resolved. CXR and UA negative. blood cultures negative and sputum culture with normal respiratory bharti- ID follow-up appreciated- continue to monitor temps- antipyretics as needed. (3) Acute respiratory failure: Secondary to CVA, Status post tracheostomy. Continue pulmonary toilet and neb treatments as needed.Pulmonary following. (4) acute renal failure/ hypernatremia/hypokalemia-resolved with IV fluid and water flush via PEG ; continue to monitor renal function and electrolytes renal sonogram with no hydronephrosis. Appreciate input from nephrology (5) A-fib: continue Lopressor, warfarin. Echocardiogram completed in November shows preserved EF (6) Non-Hodgkin lymphoma s/p brain biopsy on December 13, by Neurosurgery, Dr. Marin - Pathology consistent with acute infarct without evidence of lymphoma Seen by Oncology, Dr. Whyte, who has signed off for current admission as no active oncology issues (7) DM (diabetes mellitus): continue Levemir with sliding scale- monitor and adjust the regimen as needed. 8-Hypokalemia: Resolved Decubitus ulcer stage III: Wound care nurse input appreciated and treatment per protocol; repositioning Q2-3H; Load Dropper consult 2/2 hypoalbuminemia DVT prophylaxis with Coumadin. Mikie Bundy MD Jan 31, 2016 07:55
[2016-01-31] MEDS: SENNOSIDES SYRUP 8.8 MG/5 ML CUP TUBE SCH ×2 (08:26→20:57)
[2016-01-31] MEDS: METOPROLOL TARTRATE 50 MG TAB GT SCH ×3 (08:26→17:43)
[2016-01-31] MEDS: RANITIDINE HCL SYRUP 150 MG/10 ML UDC PO SCH (08:26)
[2016-01-31] MEDS: levETIRAcetam 500 MG/5 ML UDC TUBE SCH ×2 (08:27→20:57)
[2016-01-31] MEDS: LACTOBACILLUS ACIDOPHILUS 1 GM PACKET TUBE SCH ×2 (08:27→20:57)
[2016-01-31] MEDS: RESP: IPRATROPIUM 0.5 MG/2.5 ML NEB NEB SCH ×3 (08:50→19:27)
[2016-01-31 09:23] LABS: INTERNATIONAL NORMALIZED RATIO 2.4 RATIO; PROTHROMBIN TIME - PATIENT 26.2 SEC (9.8-11.4)
[2016-01-31] MEDS: SODIUM CHLOR 0.45% 1000 ML INJ 1,000 ML IV SCH (11:00)
[2016-01-31] MEDS: NYSTATIN 100,000 U/GM PWD 15 GM BTL TOPICAL SCH ×2 (12:22→20:58)
[2016-01-31] MEDS: WARFARIN SOD 4 MG TAB PO SCH (17:43)
[2016-01-31] MEDS: INSULIN DETEMIR 100 UNITS/ML VIAL SQ SCH (20:57)
[2016-02-01] VITALS (8 sets, daily range): BP systolic 122–159; BP diastolic 71–86; PULSE 92–115; RESP 14–24; TEMP 97.5–99.5; O2SAT 94–99
[2016-02-01] MEDS: INSULIN ASPART SUPPLEMENTAL SCALE SQ SCH ×4 (00:53→17:46)
[2016-02-01] MEDS: FREE WATER TUBE SCH ×6 (00:53→20:00)
[2016-02-01] MEDS: ACETIC ACID 0.25% IRRIGATION SCH ×3 (06:00→23:00)
[2016-02-01] MEDS: IRR IRRIGATION SCH ×3 (06:00→23:00)
[2016-02-01] MEDS: RANITIDINE HCL SYRUP 150 MG/10 ML UDC PO SCH (08:04)
[2016-02-01] MEDS: METOPROLOL TARTRATE 50 MG TAB GT SCH ×3 (08:04→17:45)
[2016-02-01] MEDS: levETIRAcetam 500 MG/5 ML UDC TUBE SCH ×2 (08:04→22:00)
[2016-02-01] MEDS: LACTOBACILLUS ACIDOPHILUS 1 GM PACKET TUBE SCH ×2 (08:04→22:00)
[2016-02-01] MEDS: SENNOSIDES SYRUP 8.8 MG/5 ML CUP TUBE SCH ×2 (08:04→22:00)
[2016-02-01] MEDS: RESP: IPRATROPIUM 0.5 MG/2.5 ML NEB NEB SCH ×3 (08:28→19:52)
--- NOTE | 2016-02-01 08:40 | HHI.PR ---
Subjective Remarks 60-year-old male with past medical history of paroxysmal atrial fibrillation, hypertension, stage III a non-Hodgkin's lymphoma status post a chemotherapy last year.He received Rituxan CHOP.He presented to [facility] emergency department with altered mental status. 01/22/16-patient seen and examined; open his eyes to verbal stimuli. No acute event overnight. Afebrile. Mom by the bedside 01/23/16-patient seen and examined; no change and stable. Currently afebrile 01/24/16-patient seen and examined. Open his eyes to verbal stimuli, vital stable and no acute event overnight. Mom at the bedside 01/25/16-patient seen and examined. Resting and no acute event overnight. Afebrile 01/26/16-patient seen and examined.NO acute event overnight. Afebrile and no change 01/27/16-patient seen and examined. stable and no change. nonverbal. K is low. Afebrile 01/28/16-patient seen and examined. Afebrile and no changes overnight. 01/29/16-patient seen and examined; patient had one 101.2 at 8 AM yesterday however currently afebrile for the past 24 hours. No acute event overnight 01/30/16-patient seen and examined; diagnosed with stage III decubitus ulcer; currently afebrile and no acute event overnight .sister by the bedside l 01/31/16-patient seen and examined; stable and no acute event overnight.Afebrile 02/01/16-patient seen and examined; MAXIMUM TEMPERATURE 100.1 at 8 PM however currently afebrile. Patient with a lot of secretions. No other issues. No family member at the bedside Objective Vitals Vital Signs Date Time Temp Pulse Resp B/P Pulse Ox O2 Delivery O2 Flow Rate FiO2 02/01/16 08:28 98 T-piece 5.00 28 02/01/16 08:28 98 T-piece 5.00 28 02/01/16 08:28 98.8 106 22 136/79 99 02/01/16 07:01 97 T-Piece 6.00 28 02/01/16 06:00 98.0 115 23 159/86 98 02/01/16 04:44 96 T-piece 5.00 28 02/01/16 04:44 96 T-piece 5.00 28 02/01/16 00:00 98.0 100 22 130/75 98 01/31/16 21:30 100.2 01/31/16 20:45 100.2 94 22 136/76 94 01/31/16 19:27 96 Trach Collar 6.00 28 01/31/16 19:27 96 Trach Collar 6.00 28 01/31/16 18:03 97.7 89 20 124/69 98 01/31/16 14:05 96 T-Piece 6.00 28 01/31/16 13:15 95.7 97 21 140/77 97 01/31/16 12:20 T-Piece 6.00 28 01/31/16 08:53 98 T-piece 28 01/31/16 08:50 98 T-piece 28 I/O 01/31/16 01/31/16 01/31/16 02/01/16 02/01/16 02/01/16 07:00 15:00 23:00 07:00 15:00 23:00 Intake Total 1350 ml 0 ml Output Total 1000 ml 1550 ml 850 ml Balance -1000 ml -200 ml -850 ml Intake Oral 0 ml Tube Feeding 550 ml Other 800 ml Output Urine Total 1000 ml 1550 ml 850 ml # Bowel Movements 0 0 0 Result Diagram: 01/30/16 1848 Imaging Last Impressions Chest X-Ray 01/24/16 0000 Signed Impressions: Service Date/Time: Sunday, January 24, 2016 22:31 - CONCLUSION: Persistent small bilateral lung volumes. Tracheostomy tube in good position. Sheldon Garcia MD Head Magnetic Resonance Angiography 01/16/16 0000 Signed Impressions: Service Date/Time: Saturday, January 16, 2016 20:05 - CONCLUSION: 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 Anterior circulation remains intact. Mikie Vargas MD Head CT 01/16/16 0000 Signed Impressions: Service Date/Time: Saturday, January 16, 2016 10:51 - CONCLUSION: No extensive low density in the brainstem colin more prominent in the right the left extending into the right middle cerebellar peduncle consistent with brainstem infarct nonhemorrhagic acute Wellington West MD Brain MRI 01/16/16 0000 Signed Impressions: Service Date/Time: Saturday, January 16, 2016 20:05 - CONCLUSION: Recent infarctions in both occipital lobes and left cerebellum. High flair abnormality within the colin but greater on the right where there is enhancement. This is likely related to progressive acute ischemic changes. Mikie Vargas MD Abdomen X-Ray 01/14/16 0000 Signed Impressions: Service Date/Time: Thursday, January 14, 2016 10:19 - CONCLUSION: Moderate stool; otherwise, negative. 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 No evidence of carotid stenosis. Glen Zamora MD Head/Brain Mag Res Venography 12/22/15 0000 Signed Impressions: Service Date/Time: Tuesday, December 22, 2015 09:22 - CONCLUSION: Normal MRV. Jonel Jones Jr., MD Objective Remarks GENERAL: Nonverbal and in no acute distress. Trach in place SKIN: Warm and dry. HEAD: Normocephalic. EYES: No scleral icterus. No injection or drainage. NECK: Supple, trachea midline. No JVD or lymphadenopathy. CARDIOVASCULAR: Regular rate and rhythm without murmurs, gallops, or rubs. RESPIRATORY: Breath sounds equal bilaterally. No accessory muscle use. GASTROINTESTINAL: Abdomen soft, non-tender, nondistended. PEG tube in place MUSCULOSKELETAL: No cyanosis, or edema. BACK: Nontender without obvious deformity. No CVA tenderness. 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 Continue Keppra and Coumadin- neurology was reconsulted.Palliative care following. Monitor Keppra level (2)fever-check chest x-ray, UA, blood and urine culture as well as endotracheal culture. ID follow-up appreciated- continue to monitor temps- antipyretics as needed. (3) Acute respiratory failure: Resolved; Secondary to CVA, Status post tracheostomy. Continue pulmonary toilet and neb treatments as needed.Pulmonary following. (4) acute renal failure/ hypernatremia/hypokalemia-resolved with IV fluid and water flush via PEG ; continue to monitor renal function and electrolytes renal sonogram with no hydronephrosis. Appreciate input from nephrology (5) A-fib: continue Lopressor, warfarin with INR/PT monitoring. Echocardiogram completed in November shows preserved EF (6) Non-Hodgkin lymphoma s/p brain biopsy on December 13, by Neurosurgery, Dr. Marin - Pathology consistent with acute infarct without evidence of lymphoma Seen by Oncology, Dr. Whyte, who has signed off for current admission as no active oncology issues (7) DM (diabetes mellitus): continue Levemir with sliding scale- monitor and adjust the regimen as needed. 8-Hypokalemia: Resolved Decubitus ulcer stage III: Wound care nurse input appreciated and treatment per protocol; repositioning Q2-3H; Crew Car Driver consult DVT prophylaxis with Coumadin. Mikie Bundy MD Feb 01, 2016 08:40
[2016-02-01] MEDS: NYSTATIN 100,000 U/GM PWD 15 GM BTL TOPICAL SCH ×2 (08:45→21:00)
[2016-02-01 09:12] LABS: INTERNATIONAL NORMALIZED RATIO 2.4 RATIO; PROTHROMBIN TIME - PATIENT 26.1 SEC (9.8-11.4)
--- NOTE | 2016-02-01 09:20 | RADRPT ---
EXAM DATE/TIME: 02/01/2016 07:49 [place] COMPARISON: CHEST SINGLE AP, January 24, 2016, 22:31. INDICATIONS : Fever. MEDICAL HISTORY: Hypertension. Diabetes mellitus type II. Lymphoma. Stroke. SURGICAL HISTORY: None. ENCOUNTER: Subsequent ACUITY: 1 month PAIN SCORE: Non-responsive. LOCATION: Chest FINDINGS: Patient has tracheostomy tube in place. The heart size is normal. There is some minimal atelectasis at the lung bases. The lungs are otherwise clear. No effusion is seen. CONCLUSION: Minimal atelectasis at the bases. Glen Blanco MD on February 01, 2016 at 9:14 Board Certified Radiologist. This report was verified electronically.
[2016-02-01 10:23] LABS: BLOOD, URINE LARGE (NEG); GLUCOSE,URINE NEG (NEG); KETONE, URINE NEG (NEG); NITRITE,URINE NEG (NEG); URINE COLOR PINK (YELLW/STRAW)
[2016-02-01 10:29] LABS: BACTERIA, URINE MANY /hpf
[2016-02-01 10:30] LABS: COMMENT (UR) CULTURE INDICATED; CULTURE IF INDICATED CULTURE INDICATED; MUCUS URINE MANY /lpf (OCC); SQUAMOUS EPITHELIAL CELL URINE 0-5 /hpf (0-5)
[2016-02-01] MEDS: SODIUM CHLOR 0.45% 1000 ML INJ 1,000 ML IV SCH (10:41)
[2016-02-01 13:39] LABS: BASOPHIL # 0.1 TH/MM3 (0-0.2); BASOPHIL % 1.3 % (0.0-2.0); EOSINOPHIL # 0.2 TH/MM3 (0-0.4); EOSINOPHIL % 4.1 % (0.0-4.0); HEMATOCRIT 32.9 % (39.0-51.0); HEMO FLAGS DIFF FINAL; LYMPH % 24.1 % (9.0-44.0); LYMPHOCYTE # 1.1 TH/MM3 (1.0-4.8); MEAN CELL VOLUME 80.8 FL (80.0-100.0); MONO % 8.5 % (0.0-8.0); PLATELET COUNT 232 TH/MM3 (150-450); RED BLOOD COUNT 4.07 MIL/MM3 (4.50-5.90); RED CELL DISTRIBUTION WIDTH 15.8 % (11.6-17.2); WHITE BLOOD COUNT 4.8 TH/MM3 (4.0-11.0)
[2016-02-01 14:18] LABS: BICARBONATE 29.6 MEQ/L (21.0-32.0); POTASSIUM 3.4 MEQ/L (3.5-5.1)
[2016-02-01] MEDS: WARFARIN SOD 4 MG TAB PO SCH (16:16)
[2016-02-01] MEDS: INSULIN DETEMIR 100 UNITS/ML VIAL SQ SCH (21:00)
[2016-02-02] VITALS (11 sets, daily range): BP systolic 118–139; BP diastolic 71–87; PULSE 90–113; RESP 16–24; TEMP 98.1–99.1; O2SAT 95–100
[2016-02-02] MEDS: FREE WATER TUBE SCH ×7 (04:30→23:59)
[2016-02-02] MEDS: IRR IRRIGATION SCH ×3 (06:00→22:00)
[2016-02-02] MEDS: ACETIC ACID 0.25% IRRIGATION SCH ×3 (06:00→22:00)
[2016-02-02] MEDS: INSULIN ASPART SUPPLEMENTAL SCALE SQ SCH ×5 (06:00→23:59)
[2016-02-02] MEDS: RESP: IPRATROPIUM 0.5 MG/2.5 ML NEB NEB SCH ×3 (07:51→21:04)
[2016-02-02 08:54] LABS: INTERNATIONAL NORMALIZED RATIO 2.6 RATIO; PROTHROMBIN TIME - PATIENT 28.4 SEC (9.8-11.4)
[2016-02-02] MEDS: NYSTATIN 100,000 U/GM PWD 15 GM BTL TOPICAL SCH ×2 (09:00→21:00)
[2016-02-02] MEDS: RANITIDINE HCL SYRUP 150 MG/10 ML UDC PO SCH (10:02)
[2016-02-02] MEDS: levETIRAcetam 500 MG/5 ML UDC TUBE SCH ×2 (10:02→21:59)
[2016-02-02] MEDS: METOPROLOL TARTRATE 50 MG TAB GT SCH ×3 (10:02→17:22)
[2016-02-02] MEDS: SENNOSIDES SYRUP 8.8 MG/5 ML CUP TUBE SCH ×2 (10:02→21:59)
[2016-02-02] MEDS: LACTOBACILLUS ACIDOPHILUS 1 GM PACKET TUBE SCH ×2 (10:02→21:59)
[2016-02-02] MEDS: SODIUM CHLOR 0.45% 1000 ML INJ 1,000 ML IV SCH (10:03)
--- NOTE | 2016-02-02 11:46 | HHI.PR ---
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 Ex- at bedside. Care plan discussed with her and updated on current patient status. Objective Vitals Vital Signs Date Time Temp Pulse Resp B/P Pulse Ox O2 Delivery O2 Flow Rate FiO2 02/02/16 08:00 98.9 113 17 124/80 96 02/02/16 07:59 100 T-piece 28 02/02/16 07:59 100 T-piece 28 02/02/16 04:00 98.8 112 20 120/75 96 02/02/16 00:24 98.1 95 24 132/82 96 02/01/16 20:00 99.5 98 24 129/76 94 02/01/16 19:52 97 T-piece 6.00 28 02/01/16 19:52 97 T-piece 6.00 28 02/01/16 19:00 Trach Collar 6.00 28 02/01/16 18:40 99 02/01/16 16:52 97.5 92 14 122/71 99 02/01/16 13:35 99.4 111 20 131/79 96 I/O 02/01/16 02/01/16 02/01/16 02/02/16 02/02/16 02/02/16 07:00 15:00 23:00 07:00 15:00 23:00 Intake Total 0 ml 1860 ml Output Total 850 ml 2300 ml 1300 ml Balance -850 ml -2300 ml 560 ml Intake Oral 0 ml Tube Feeding 660 ml Tube Irrigant 1200 ml Output Urine Total 850 ml 2300 ml 1300 ml # Bowel Movements 0 Result Diagram: 02/01/16 1321 02/01/16 1321 Objective Remarks GENERAL: This is a well-nourished, well-developed patient, eyes open, mouth just due to the right glasses on CARDIOVASCULAR: Sinus tach without murmurs, gallops, or rubs. RESPIRATORY: Tracheostomy Clear to auscultation. Breath sounds equal bilaterally. No wheezes, rales, or rhonchi. GASTROINTESTINAL: PEG tube Abdomen soft, non-tender, nondistended. Normal active bowel sounds MUSCULOSKELETAL: Extremities without clubbing, cyanosis, or edema. 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
[2016-02-02] MEDS: WARFARIN SOD 4 MG TAB PO SCH (17:22)
[2016-02-02] MEDS: INSULIN DETEMIR 100 UNITS/ML VIAL SQ SCH (21:59)
[2016-02-03] VITALS (11 sets, daily range): BP systolic 114–131; BP diastolic 68–82; PULSE 84–114; RESP 19–20; TEMP 96.8–98.5; O2SAT 94–100
[2016-02-03] MEDS: FREE WATER TUBE SCH ×5 (02:28→20:00)
[2016-02-03] MEDS: ACETIC ACID 0.25% IRRIGATION SCH ×3 (06:00→21:25)
[2016-02-03] MEDS: IRR IRRIGATION SCH ×3 (06:00→21:25)
[2016-02-03] MEDS: INSULIN ASPART SUPPLEMENTAL SCALE SQ SCH ×3 (06:01→17:18)
[2016-02-03] MEDS: RESP: IPRATROPIUM 0.5 MG/2.5 ML NEB NEB SCH ×3 (07:21→20:42)
[2016-02-03 07:58] LABS: INTERNATIONAL NORMALIZED RATIO 2.9 RATIO; PROTHROMBIN TIME - PATIENT 32.5 SEC (9.8-11.4)
[2016-02-03] MEDS: METOPROLOL TARTRATE 50 MG TAB GT SCH ×3 (09:40→17:18)
[2016-02-03] MEDS: LACTOBACILLUS ACIDOPHILUS 1 GM PACKET TUBE SCH ×2 (09:40→21:17)
[2016-02-03] MEDS: SENNOSIDES SYRUP 8.8 MG/5 ML CUP TUBE SCH ×2 (09:41→21:13)
[2016-02-03] MEDS: NYSTATIN 100,000 U/GM PWD 15 GM BTL TOPICAL SCH ×2 (09:41→21:18)
[2016-02-03] MEDS: SODIUM CHLOR 0.45% 1000 ML INJ 1,000 ML IV SCH (09:41)
[2016-02-03] MEDS: RANITIDINE HCL SYRUP 150 MG/10 ML UDC PO SCH (09:41)
[2016-02-03] MEDS: levETIRAcetam 500 MG/5 ML UDC TUBE SCH ×2 (09:41→21:13)
--- NOTE | 2016-02-03 13:28 | HHI.PR ---
Subjective Remarks Was seen and evaluated today. Patient's eyes open and responsive family is commands in his [place] tongue. Squeezed my hand. Objective Vitals Vital Signs Date Time Temp Pulse Resp B/P Pulse Ox O2 Delivery O2 Flow Rate FiO2 02/03/16 12:00 97.6 87 19 131/82 97 02/03/16 08:00 97.3 108 20 130/78 100 02/03/16 07:30 114 02/03/16 07:23 97 T-piece 28 02/03/16 07:23 97 T-piece 28 02/03/16 04:41 96.8 108 19 121/74 95 02/03/16 00:25 98 T-piece 5.00 28 02/03/16 00:25 98 T-piece 5.00 28 02/03/16 00:23 97.3 101 19 122/78 94 02/02/16 21:06 99 T-piece 6.00 28 02/02/16 21:05 98.7 91 19 118/71 95 02/02/16 21:00 97 02/02/16 21:00 98 T-Piece 4.00 02/02/16 20:16 99 T-piece 6.00 28 02/02/16 16:00 99.1 90 17 137/85 95 I/O 02/02/16 02/02/16 02/02/16 02/03/16 02/03/16 02/03/16 06:59 14:59 22:59 06:59 14:59 22:59 Intake Total 1860 ml Output Total 1300 ml 300 ml 750 ml Balance 560 ml -300 ml -750 ml Tube Feeding 660 ml Tube Irrigant 1200 ml Output Urine Total 1300 ml 300 ml 750 ml Result Diagram: 02/01/16 1321 02/01/16 1321 Objective Remarks GENERAL: This is a well-nourished, well-developed patient, eyes open, smiles on command CARDIOVASCULAR: Sinus tach without murmurs, gallops, or rubs. RESPIRATORY: Tracheostomy Clear to auscultation. Breath sounds equal bilaterally. No wheezes, rales, or rhonchi. GASTROINTESTINAL: PEG tube Abdomen soft, non-tender, nondistended. Normal active bowel sounds MUSCULOSKELETAL: Extremities without clubbing, cyanosis, or edema. 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
--- NOTE | 2016-02-03 17:09 | HHI.PR ---
Subjective Remarks 60 YO Male with RF, Encephalopathy On Trach collar Opens eyes Family at BS Objective Vital Signs Vital Signs Date Time Temp Pulse Resp B/P Pulse Ox O2 Delivery O2 Flow Rate FiO2 02/03/16 16:00 98.1 88 19 114/68 96 02/03/16 12:00 97.6 87 19 131/82 97 02/03/16 08:00 97.3 108 20 130/78 100 02/03/16 07:30 114 02/03/16 07:23 97 T-piece 28 02/03/16 07:23 97 T-piece 28 02/03/16 04:41 96.8 108 19 121/74 95 02/03/16 00:25 98 T-piece 5.00 28 02/03/16 00:25 98 T-piece 5.00 28 02/03/16 00:23 97.3 101 19 122/78 94 02/02/16 21:06 99 T-piece 6.00 28 02/02/16 21:05 98.7 91 19 118/71 95 02/02/16 21:00 97 02/02/16 21:00 98 T-Piece 4.00 02/02/16 20:16 99 T-piece 6.00 28 I/O 02/02/16 02/02/16 02/02/16 02/03/16 02/03/16 02/03/16 07:00 15:00 23:00 07:00 15:00 23:00 Intake Total 1860 ml Output Total 1300 ml 300 ml 750 ml 1300 ml Balance 560 ml -300 ml -750 ml -1300 ml Tube Feeding 660 ml Tube Irrigant 1200 ml Output Urine Total 1300 ml 300 ml 750 ml 1300 ml Result Diagram: 02/01/16 1321 02/01/16 1321 Objective Remarks GENERAL: Well-nourished, well-developed patient. SKIN: Warm and dry. HEAD: Normocephalic. EYES: No scleral icterus. No injection or drainage. NECK: Supple, trachea midline. No JVD or lymphadenopathy. trach in place CARDIOVASCULAR: Regular rate and rhythm without murmurs, gallops, or rubs. RESPIRATORY: Breath sounds equal bilaterally. No accessory muscle use. GASTROINTESTINAL: Abdomen soft, non-tender, nondistended. MUSCULOSKELETAL: No cyanosis, or edema. BACK: Nontender without obvious deformity. No CVA tenderness. A/P Assessment and Plan Resp Failure, s/p trach Encephalopathy AF DM PLAN: Trach care TF Cont Cristopher March DW family at BS. Aureliano Grove MD Feb 03, 2016 17:09
[2016-02-03] MEDS: WARFARIN SOD 3 MG TAB PO SCH (17:18)
[2016-02-03] MEDS: INSULIN DETEMIR 100 UNITS/ML VIAL SQ SCH (21:12)
[2016-02-04] VITALS (10 sets, daily range): BP systolic 109–151; BP diastolic 74–94; PULSE 84–104; RESP 18–19; TEMP 96.3–98.8; O2SAT 96–100
[2016-02-04] MEDS: FREE WATER TUBE SCH ×6 (04:00→20:00)
[2016-02-04] MEDS: IRR IRRIGATION SCH ×3 (06:00→20:56)
[2016-02-04] MEDS: INSULIN ASPART SUPPLEMENTAL SCALE SQ SCH ×4 (06:00→17:50)
[2016-02-04] MEDS: ACETIC ACID 0.25% IRRIGATION SCH ×3 (06:00→20:56)
[2016-02-04] MEDS: RESP: IPRATROPIUM 0.5 MG/2.5 ML NEB NEB SCH ×3 (07:18→20:35)
[2016-02-04] MEDS: RANITIDINE HCL SYRUP 150 MG/10 ML UDC PO SCH (08:04)
[2016-02-04] MEDS: SENNOSIDES SYRUP 8.8 MG/5 ML CUP TUBE SCH ×2 (08:04→20:55)
[2016-02-04] MEDS: LACTOBACILLUS ACIDOPHILUS 1 GM PACKET TUBE SCH ×2 (08:04→20:56)
[2016-02-04] MEDS: levETIRAcetam 500 MG/5 ML UDC TUBE SCH ×2 (08:04→20:55)
[2016-02-04] MEDS: METOPROLOL TARTRATE 50 MG TAB GT SCH ×3 (08:05→18:12)
[2016-02-04 08:22] LABS: INTERNATIONAL NORMALIZED RATIO 2.7 RATIO; PROTHROMBIN TIME - PATIENT 30.3 SEC (9.8-11.4)
[2016-02-04] MEDS: NYSTATIN 100,000 U/GM PWD 15 GM BTL TOPICAL SCH ×2 (08:27→21:00)
[2016-02-04] MEDS: SODIUM CHLOR 0.45% 1000 ML INJ 1,000 ML IV SCH (10:24)
--- NOTE | 2016-02-04 10:27 | HHI.PR ---
Subjective Remarks Patient seen and evaluated today in follow-up for encephalopathy secondary to brain injury. No events overnight. Objective Vitals Vital Signs Date Time Temp Pulse Resp B/P Pulse Ox O2 Delivery O2 Flow Rate FiO2 02/04/16 08:34 98 T-Piece 4.00 02/04/16 08:13 97.1 104 18 119/78 99 02/04/16 07:21 98 T-piece 28 02/04/16 07:21 98 T-piece 28 02/04/16 05:45 100 T-piece 6.00 28 02/04/16 04:30 98.2 100 19 109/76 100 02/04/16 00:10 97.8 100 18 109/74 96 02/03/16 20:46 98 T-piece 28 02/03/16 20:46 98 T-piece 28 02/03/16 20:42 98.5 92 19 129/76 96 02/03/16 20:00 84 02/03/16 16:00 98.1 88 19 114/68 96 02/03/16 12:00 97.6 87 19 131/82 97 I/O 02/03/16 02/03/16 02/03/16 02/04/16 02/04/16 02/04/16 06:59 14:59 22:59 06:59 14:59 22:59 Output Total 750 ml 1300 ml 0 ml 1450 ml Balance -750 ml -1300 ml 0 ml -1450 ml Output Urine Total 750 ml 1300 ml 1450 ml Tube Feeding Residual Discard 0 ml Result Diagram: 02/01/16 1321 02/01/16 1321 Objective Remarks GENERAL: This is a well-nourished, well-developed patient, eyes open, intermittently smiles on command from his mother only CARDIOVASCULAR: Sinus tach without murmurs, gallops, or rubs. RESPIRATORY: Tracheostomy Clear to auscultation. Breath sounds equal bilaterally. No wheezes, rales, or rhonchi. GASTROINTESTINAL: PEG tube Abdomen soft, non-tender, nondistended. Normal active bowel sounds MUSCULOSKELETAL: Extremities without clubbing, cyanosis, or edema. NEURO: Encephalopathic, eyes opened on command Procedures PEG and trach A/P Problem List: (1) CVA (cerebral vascular accident) Status: Acute (2) A-fib Status: Chronic (3) DM (diabetes mellitus) Status: Chronic Assessment and Plan Some signs of improvement yesterday. Very sleepy today Cathy Lindo MD Feb 04, 2016 10:27
[2016-02-04] MEDS: WARFARIN SOD 3 MG TAB PO SCH (15:51)
--- NOTE | 2016-02-04 16:48 | HHI.PR ---
Subjective Remarks 60 YO Male with RF, Encephalopathy On Trach collar More awake Cough on suctioning Family at Objective Vital Signs Vital Signs Date Time Temp Pulse Resp B/P Pulse Ox O2 Delivery O2 Flow Rate FiO2 02/04/16 12:16 96.3 89 18 151/81 99 02/04/16 08:34 98 T-Piece 4.00 02/04/16 08:13 97.1 104 18 119/78 99 02/04/16 07:21 98 T-piece 28 02/04/16 07:21 98 T-piece 28 02/04/16 05:45 100 T-piece 6.00 28 02/04/16 04:30 98.2 100 19 109/76 100 02/04/16 00:10 97.8 100 18 109/74 96 02/03/16 20:46 98 T-piece 28 02/03/16 20:46 98 T-piece 28 02/03/16 20:42 98.5 92 19 129/76 96 02/03/16 20:00 84 I/O 02/03/16 02/03/16 02/03/16 02/04/16 02/04/16 02/04/16 07:00 15:00 23:00 07:00 15:00 23:00 Output Total 750 ml 1300 ml 0 ml 1450 ml 550 ml Balance -750 ml -1300 ml 0 ml -1450 ml -550 ml Output Urine Total 750 ml 1300 ml 1450 ml 550 ml Tube Feeding Residual Discard 0 ml # Bowel Movements 1 Result Diagram: 02/01/16 1321 02/01/16 1321 Objective Remarks GENERAL: Well-nourished, well-developed patient. SKIN: Warm and dry. HEAD: Normocephalic. EYES: No scleral icterus. No injection or drainage. NECK: Supple, trachea midline. No JVD or lymphadenopathy. trach in place CARDIOVASCULAR: Regular rate and rhythm without murmurs, gallops, or rubs. RESPIRATORY: Breath sounds equal bilaterally. No accessory muscle use. GASTROINTESTINAL: Abdomen soft, non-tender, nondistended. MUSCULOSKELETAL: No cyanosis, or edema. BACK: Nontender without obvious deformity. No CVA tenderness. A/P Assessment and Plan Resp Failure, s/p trach Encephalopathy AF DM PLAN: Trach care TF Cont Cristopher MCFARLANE family at . Dr. Brandon will FU in AM. Aureliano Grove MD Feb 04, 2016 16:48
[2016-02-04] MEDS: INSULIN DETEMIR 100 UNITS/ML VIAL SQ SCH (20:55)
[2016-02-05] VITALS (9 sets, daily range): BP systolic 109–147; BP diastolic 67–87; PULSE 69–128; RESP 18–24; TEMP 98.3–100.1; O2SAT 96–100
[2016-02-05] MEDS: FREE WATER TUBE SCH ×6 (04:00→20:00)
[2016-02-05] MEDS: ACETIC ACID 0.25% IRRIGATION SCH (06:00)
[2016-02-05] MEDS: IRR IRRIGATION SCH (06:00)
[2016-02-05] MEDS: METOPROLOL TARTRATE 50 MG TAB GT SCH ×3 (06:34→17:36)
[2016-02-05] MEDS: cefTRIAXone INJ 1,000 MG in SODIUM CHLORIDE 0.9% INJ 100 ML IV SCH (06:35)
[2016-02-05] MEDS: INSULIN ASPART SUPPLEMENTAL SCALE SQ SCH ×4 (06:42→17:35)
[2016-02-05 07:06] LABS: INTERNATIONAL NORMALIZED RATIO 2.7 RATIO; PROTHROMBIN TIME - PATIENT 29.6 SEC (9.8-11.4)
[2016-02-05 07:11] LABS: BICARBONATE 26.5 MEQ/L (21.0-32.0); MAGNESIUM 1.8 MG/DL (1.5-2.5); POTASSIUM 3.6 MEQ/L (3.5-5.1)
[2016-02-05] MEDS: RESP: IPRATROPIUM 0.5 MG/2.5 ML NEB NEB SCH ×3 (07:26→19:42)
[2016-02-05] MEDS: levETIRAcetam 500 MG/5 ML UDC TUBE SCH ×2 (08:38→20:51)
[2016-02-05] MEDS: RANITIDINE HCL SYRUP 150 MG/10 ML UDC PO SCH (08:39)
[2016-02-05] MEDS: LACTOBACILLUS ACIDOPHILUS 1 GM PACKET TUBE SCH ×2 (08:39→20:49)
[2016-02-05] MEDS: SENNOSIDES SYRUP 8.8 MG/5 ML CUP TUBE SCH ×2 (08:39→20:51)
[2016-02-05] MEDS: NYSTATIN 100,000 U/GM PWD 15 GM BTL TOPICAL SCH ×2 (08:40→21:02)
[2016-02-05] MEDS: SODIUM CHLOR 0.45% 1000 ML INJ 1,000 ML IV SCH (11:18)
--- NOTE | 2016-02-05 15:39 | HHI.PR ---
Subjective Remarks No new issues overnight. Patient seen with family members at bedside. He does not interact or follow commands. Eyes open. He appears comfortable. Objective Vitals Vital Signs Date Time Temp Pulse Resp B/P Pulse Ox O2 Delivery O2 Flow Rate FiO2 02/05/16 12:00 98.3 105 22 147/87 99 02/05/16 09:54 128 02/05/16 08:55 99 T-Piece 4.00 28 02/05/16 08:00 98.3 93 21 127/76 98 02/05/16 07:26 100 T-piece 28 02/05/16 04:00 99.1 125 18 109/73 97 02/05/16 00:00 100.1 97 18 120/75 99 02/04/16 22:35 84 02/04/16 20:37 99 T-piece 28 02/04/16 20:37 99 T-piece 28 02/04/16 20:00 98.8 90 18 121/94 97 02/04/16 16:54 97.9 100 19 126/74 97 I/O 02/04/16 02/04/16 02/04/16 02/05/16 02/05/16 02/05/16 07:00 15:00 23:00 07:00 15:00 23:00 Intake Total 0 ml 0 ml Output Total 1450 ml 550 ml 1501.0 ml 401 ml 0 ml Balance -1450 ml -550 ml -1501.0 ml -401 ml 0 ml Intake Oral 0 ml 0 ml Output Urine Total 1450 ml 550 ml 1500 ml 400 ml Stool Total 1 ml 1 ml Tube Feeding Residual Discard 0 ml 0 ml # Bowel Movements 1 Result Diagram: 02/01/16 1321 02/05/16 0644 Objective Remarks GENERAL: Nonverbal and in no acute distress. Trach in place SKIN: Warm and dry. CARDIOVASCULAR: Regular rate and rhythm without murmurs, gallops, or rubs. RESPIRATORY: Diffuse coarse breath sounds. Upper airway transmission sound. GASTROINTESTINAL: Abdomen soft, non-tender, nondistended. PEG tube in place MUSCULOSKELETAL: No cyanosis, or edema. 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 Continue Keppra and Coumadin- neurology was reconsulted.Palliative care following. Monitor on Keppra Respiratory failure: Patient is status post trach Secondary to CVA. Continue pulmonary toilet and neb treatments as needed.Pulmonary following. A-fib: continue Lopressor, warfarin with INR/PT monitoring. Echocardiogram completed in November shows preserved EF UTI: Urine culture growing Klebsiella. Patient was started on Rocephin. Continue Rocephin for now. Non-Hodgkin lymphoma s/p brain biopsy on December 13, by Neurosurgery, Dr. Marin - Pathology consistent with acute infarct without evidence of lymphoma Seen by Oncology, Dr. Whyte, who has signed off for current admission as there are no active oncology issues DM: continue Levemir with sliding scale- monitor and adjust the regimen as needed. Jw Bah MD Feb 05, 2016 15:39
[2016-02-05] MEDS: ACETIC ACID 0.25% SOLN 1000 ML IRR BTL IRRIGATION SCH ×2 (17:33→21:02)
[2016-02-05] MEDS: WARFARIN SOD 3 MG TAB PO SCH (17:34)
[2016-02-05] MEDS: INSULIN DETEMIR 100 UNITS/ML VIAL SQ SCH (20:51)
[2016-02-06] VITALS (12 sets, daily range): BP systolic 121–144; BP diastolic 61–89; PULSE 84–109; RESP 20–22; TEMP 96.1–99.3; O2SAT 95–100
[2016-02-06] MEDS: FREE WATER TUBE SCH ×6 (04:00→20:00)
[2016-02-06] MEDS: INSULIN ASPART SUPPLEMENTAL SCALE SQ SCH ×4 (06:00→18:00)
[2016-02-06] MEDS: cefTRIAXone INJ 1,000 MG in SODIUM CHLORIDE 0.9% INJ 100 ML IV SCH (06:24)
[2016-02-06] MEDS: ACETIC ACID 0.25% SOLN 1000 ML IRR BTL IRRIGATION SCH ×3 (06:25→20:14)
[2016-02-06] MEDS: RESP: IPRATROPIUM 0.5 MG/2.5 ML NEB NEB SCH ×3 (07:37→20:02)
[2016-02-06] MEDS: RANITIDINE HCL SYRUP 150 MG/10 ML UDC PO SCH (08:30)
[2016-02-06] MEDS: levETIRAcetam 500 MG/5 ML UDC TUBE SCH ×2 (08:30→20:15)
[2016-02-06] MEDS: SENNOSIDES SYRUP 8.8 MG/5 ML CUP TUBE SCH ×2 (08:30→20:15)
[2016-02-06] MEDS: METOPROLOL TARTRATE 50 MG TAB GT SCH ×3 (08:30→17:48)
[2016-02-06] MEDS: NYSTATIN 100,000 U/GM PWD 15 GM BTL TOPICAL SCH ×2 (08:31→20:14)
[2016-02-06] MEDS: LACTOBACILLUS ACIDOPHILUS 1 GM PACKET TUBE SCH ×2 (08:31→20:15)
[2016-02-06] MEDS: SODIUM CHLOR 0.45% 1000 ML INJ 1,000 ML IV SCH (11:26)
--- NOTE | 2016-02-06 14:44 | HHI.PR ---
Subjective Remarks No acute issues overnight. Discussed with RN. PEG tube is clogged. Objective Vitals Vital Signs Date Time Temp Pulse Resp B/P Pulse Ox O2 Delivery O2 Flow Rate FiO2 02/06/16 14:14 100 T-piece 28 02/06/16 14:09 96.1 84 20 134/76 99 02/06/16 10:08 99 T-Piece 4.00 28 02/06/16 08:37 96.4 104 20 136/89 100 02/06/16 08:22 98 02/06/16 04:00 98.2 94 20 144/77 97 02/06/16 00:00 99.3 95 20 121/61 95 02/05/16 20:00 100.0 89 24 123/67 96 02/05/16 20:00 93 02/05/16 19:50 T-Piece 4.00 28 02/05/16 19:42 100 T-piece 6.00 28 02/05/16 19:42 100 T-piece 6.00 28 02/05/16 16:00 99.0 69 22 119/69 98 I/O 02/05/16 02/05/16 02/05/16 02/06/16 02/06/16 02/06/16 07:00 15:00 23:00 07:00 15:00 23:00 Intake Total 0 ml 724 ml Output Total 401 ml 600 ml 400 ml 2250 ml 0 ml Balance -401 ml -600 ml -400 ml -1526 ml 0 ml Intake Oral 0 ml IV Total 724 ml Output Urine Total 400 ml 600 ml 400 ml 2250 ml Stool Total 1 ml Tube Feeding Residual Discard 0 ml 0 ml # Bowel Movements 1 1 0 Result Diagram: 02/05/16 0644 Objective Remarks GENERAL: Nonverbal and in no acute distress. Trach in place SKIN: Warm and dry. CARDIOVASCULAR: Regular rate and rhythm without murmurs, gallops, or rubs. RESPIRATORY: Diffuse coarse breath sounds. Upper airway transmission sound. GASTROINTESTINAL: Abdomen soft, non-tender, nondistended. PEG tube in place MUSCULOSKELETAL: No cyanosis, or edema. 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 Continue Keppra and Coumadin- Palliative care following. Monitor on Keppra - Continue Nepro at 55 cc/hr per dietitian recommendations. - Advised RN to call GI regarding the clogged PEG tube. Respiratory failure: Patient is status post trach Secondary to CVA. Continue pulmonary toilet and neb treatments as needed.Pulmonary following. A-fib: continue Lopressor, warfarin with INR/PT monitoring. Echocardiogram completed in November shows preserved EF UTI: Urine culture growing Klebsiella. Patient was started on Rocephin. Continue Rocephin for now with stop date 02/09/16 Non-Hodgkin lymphoma s/p brain biopsy on December 13, by Neurosurgery, Dr. Marin - Pathology consistent with acute infarct without evidence of lymphoma Seen by Oncology, Dr. Whyte, who has signed off for current admission as there are no active oncology issues DM: continue Levemir with sliding scale- monitor and adjust the regimen as needed. Jw Bah MD Feb 06, 2016 14:44
[2016-02-06 16:44] LABS: INTERNATIONAL NORMALIZED RATIO 2.3 RATIO; PROTHROMBIN TIME - PATIENT 24.6 SEC (9.8-11.4)
[2016-02-06] MEDS: WARFARIN SOD 3 MG TAB PO SCH (17:48)
[2016-02-06] MEDS: INSULIN DETEMIR 100 UNITS/ML VIAL SQ SCH (20:15)
[2016-02-07] VITALS (10 sets, daily range): BP systolic 123–151; BP diastolic 69–85; PULSE 91–103; RESP 15–24; TEMP 97.5–100.3; O2SAT 92–99
[2016-02-07] MEDS: INSULIN ASPART SUPPLEMENTAL SCALE SQ SCH ×4 (00:30→17:46)
[2016-02-07] MEDS: FREE WATER TUBE SCH ×6 (00:30→20:00)
[2016-02-07] MEDS: cefTRIAXone INJ 1,000 MG in SODIUM CHLORIDE 0.9% INJ 100 ML IV SCH (06:36)
[2016-02-07] MEDS: ACETIC ACID 0.25% SOLN 1000 ML IRR BTL IRRIGATION SCH ×3 (06:36→21:34)
[2016-02-07] MEDS: RANITIDINE HCL SYRUP 150 MG/10 ML UDC PO SCH (08:29)
[2016-02-07] MEDS: levETIRAcetam 500 MG/5 ML UDC TUBE SCH ×2 (08:29→21:27)
[2016-02-07] MEDS: METOPROLOL TARTRATE 50 MG TAB GT SCH ×3 (08:29→17:25)
[2016-02-07] MEDS: SENNOSIDES SYRUP 8.8 MG/5 ML CUP TUBE SCH ×2 (08:29→21:00)
[2016-02-07] MEDS: RESP: IPRATROPIUM 0.5 MG/2.5 ML NEB NEB SCH ×3 (08:43→19:42)
[2016-02-07] MEDS: LACTOBACILLUS ACIDOPHILUS 1 GM PACKET TUBE SCH ×2 (09:27→21:28)
[2016-02-07] MEDS: NYSTATIN 100,000 U/GM PWD 15 GM BTL TOPICAL SCH ×2 (09:27→21:00)
[2016-02-07] MEDS: SODIUM CHLOR 0.45% 1000 ML INJ 1,000 ML IV SCH (09:44)
[2016-02-07 10:01] LABS: INTERNATIONAL NORMALIZED RATIO 2.4 RATIO; PROTHROMBIN TIME - PATIENT 26.5 SEC (9.8-11.4)
[2016-02-07 10:02] LABS: HEMATOCRIT 33.6 % (39.0-51.0); MEAN CELL VOLUME 79.4 FL (80.0-100.0); MEAN CORPUSCULAR HEMOGLOBIN 25.1 PG (27.0-34.0); MEAN CORPUSCULAR HGB CONC 31.6 % (32.0-36.0); PLATELET COUNT 194 TH/MM3 (150-450); RED BLOOD COUNT 4.23 MIL/MM3 (4.50-5.90); REVIEW FLAG FINAL; WHITE BLOOD COUNT 8.2 TH/MM3 (4.0-11.0)
[2016-02-07 10:11] LABS: BICARBONATE 25.8 MEQ/L (21.0-32.0); POTASSIUM 3.9 MEQ/L (3.5-5.1)
--- NOTE | 2016-02-07 14:48 | HHI.PR ---
Subjective Remarks No acute issues overnight. Discussed with RN. PEG tube is now working as long as it's appropriately flushed. Objective Vitals Vital Signs Date Time Temp Pulse Resp B/P Pulse Ox O2 Delivery O2 Flow Rate FiO2 02/07/16 12:00 99.3 103 16 123/69 99 02/07/16 10:25 98 02/07/16 08:52 94 T-piece 28 02/07/16 08:00 97.5 96 15 123/79 96 02/07/16 07:54 T-Piece 6.00 28 02/07/16 06:46 98.0 98 20 151/80 96 02/07/16 00:00 99.3 95 20 130/77 98 02/06/16 21:25 T-Piece 6.00 28 02/06/16 20:08 97 T-piece 6.00 25 02/06/16 20:02 97 T-piece 6.00 28 02/06/16 20:00 97.7 86 20 124/77 100 02/06/16 20:00 89 02/06/16 16:56 98.1 88 22 142/76 99 02/06/16 16:40 97 T-piece 5.00 28 I/O 02/06/16 02/06/16 02/06/16 02/07/16 02/07/16 02/07/16 07:00 15:00 23:00 07:00 15:00 23:00 Intake Total 724 ml 907 ml Output Total 2250 ml 0 ml 1225 ml 1225 ml Balance -1526 ml 0 ml -1225 ml -318 ml IV Total 724 ml 907 ml Output Urine Total 2250 ml 1225 ml 1225 ml Tube Feeding Residual Discard 0 ml # Bowel Movements 0 1 Result Diagram: 02/07/1691702/07/1618 Objective Remarks GENERAL: Nonverbal and in no acute distress. Trach in place SKIN: Warm and dry. CARDIOVASCULAR: Regular rate and rhythm without murmurs, gallops, or rubs. RESPIRATORY: Diffuse coarse breath sounds. Upper airway transmission sound. GASTROINTESTINAL: Abdomen soft, non-tender, nondistended. PEG tube in place MUSCULOSKELETAL: No cyanosis, or edema. 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 Continue Keppra and Coumadin- Palliative care following. Monitor on Keppra - Continue Nepro at 55 cc/hr per dietitian recommendations. Respiratory failure: Patient is status post trach Secondary to CVA. Continue pulmonary toilet and neb treatments as needed.Pulmonary following. A-fib: continue Lopressor, warfarin with INR/PT monitoring. Echocardiogram completed in November shows preserved EF UTI: Urine culture growing Klebsiella. Patient was started on Rocephin. Continue Rocephin for now with stop date 02/09/16 Non-Hodgkin lymphoma s/p brain biopsy on December 13, by Neurosurgery, Dr. Marin - Pathology consistent with acute infarct without evidence of lymphoma Seen by Oncology, Dr. Whyte, who has signed off for current admission as there are no active oncology issues DM: continue Levemir with sliding scale- monitor and adjust the regimen as needed. Jw Bah MD Feb 07, 2016 14:48
[2016-02-07] MEDS: WARFARIN SOD 3 MG TAB PO SCH (15:55)
--- NOTE | 2016-02-07 19:05 | RADRPT ---
EXAM DATE/TIME: 02/07/2016 18:23 [facility] COMPARISON: CHEST SINGLE AP, February 01, 2016, 7:49. INDICATIONS : Short of breath. MEDICAL HISTORY : Hypertension. Diabetes mellitus type II. Lymphoma. Stroke. SURGICAL HISTORY : None. ENCOUNTER: Subsequent ACUITY: 1 month PAIN SCORE: Non-responsive. LOCATION: Bilateral chest FINDINGS: A single view of the chest demonstrates tracheostomy in satisfactory position. Subsegmental basilar a irspace disease. No effusions. No pneumothorax. Mildly tortuous aorta. CONCLUSION: 1. Subsegmental basilar opacity characteristic of atelectasis. No effusion or pneumothorax. Tracheost kimberly unchanged. Durga Dotson MD on February 07, 2016 at 19:02 Board Certified Radiologist. This report was verified electronically.
[2016-02-07] MEDS: INSULIN DETEMIR 100 UNITS/ML VIAL SQ SCH (21:00)
[2016-02-08] VITALS (11 sets, daily range): BP systolic 105–151; BP diastolic 68–90; PULSE 73–103; RESP 20–24; TEMP 95.6–100.8; O2SAT 95–100
[2016-02-08] MEDS: FREE WATER TUBE SCH ×6 (04:00→20:00)
[2016-02-08] MEDS: ACETIC ACID 0.25% SOLN 1000 ML IRR BTL IRRIGATION SCH ×3 (06:00→21:22)
[2016-02-08] MEDS: cefTRIAXone INJ 1,000 MG in SODIUM CHLORIDE 0.9% INJ 100 ML IV SCH (06:30)
[2016-02-08] MEDS: INSULIN ASPART SUPPLEMENTAL SCALE SQ SCH ×4 (06:30→17:33)
[2016-02-08] MEDS: RESP: IPRATROPIUM 0.5 MG/2.5 ML NEB NEB SCH ×3 (08:01→19:59)
[2016-02-08] MEDS: RANITIDINE HCL SYRUP 150 MG/10 ML UDC PO SCH (09:00)
[2016-02-08] MEDS: NYSTATIN 100,000 U/GM PWD 15 GM BTL TOPICAL SCH ×2 (09:00→21:00)
[2016-02-08] MEDS: METOPROLOL TARTRATE 50 MG TAB GT SCH ×3 (09:00→17:37)
[2016-02-08] MEDS: levETIRAcetam 500 MG/5 ML UDC TUBE SCH ×2 (09:00→21:09)
[2016-02-08] MEDS: LACTOBACILLUS ACIDOPHILUS 1 GM PACKET TUBE SCH ×2 (09:00→21:00)
[2016-02-08] MEDS: SENNOSIDES SYRUP 8.8 MG/5 ML CUP TUBE SCH ×2 (09:00→21:00)
[2016-02-08 10:13] LABS: PROTHROMBIN TIME - PATIENT 21.3 SEC (9.8-11.4)
--- NOTE | 2016-02-08 11:37 | HHI.HCSW ---
Windows Software Engineer Visit Cognitive Functioning Mr. Flores currently lying in bed, alert with eyes open. Appears comfortable, no visible signs of pain or distress. Currently unable to make his own needs known. Family members usually at bedside. . Significant Family/Friend Multiple family members at bedside. Spoke at length with Leanne (ex-). She requests a medical update, mainly has questions regarding patient's imaging. Expressed some concerns with patient's body temperature stating "he is usually a very warm blooded man but felt cold this morning". Nurse in to provide additional blankets. Palliative care PAYROLL SERVICES ANALYST aware of medical update request. Leanne also states Mr. Flores has been utilizing head movement more. Expressed his daughter and son will be in to visit this weekend and they are going to discuss possibly requesting PT get him out of bed. Confirmed family has palliative care contact information. Offered emotional support. . Pertinent Social History Mr. Flores is originally from [place]. He moved to the around 35 years ago, first to [place] and later to [place]. He is not legally but remains with his ex-, Leanne. They have been together for 31+ years and have three children together: Leanne, Gerald, and Ginny. Gerald is currently in [employer] for work. Mr. Flores has 2 brothers and 7 sisters. His father is of old age. His mother is alive and was living with the patient. There is no reported illness in the family, Leanne will attempt to find out more prior to family meeting tomorrow. 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 He is described as a "heavy smoker since age 14". Reported to smoke at least 1PPD, increasingly more in the past year relating to anxiety and fear of cancer returning. Denies alcohol use. He is described as an animated and charismatic man. He best responds to slow and clear speech, as Yoruba is his second language. He reportedly responds well to positive reinforcement at well. . Quality of Life Values/Goals He is very much a family man, he comes from a large family and has a good support system. . Advance Directive Per [place] Statutes, medical proxy decision making falls to the majority of adult children as Mr. Flores is not legally . Important Contacts Leanne, daughter: [phone] <--- point of contact Ginny, daughter: [phone] Gerald, son: currently in [facility] for work but has communication with his siblings. Leanne, ex-/current significant other: [phone] . Follow Up Visit Palliative care will continue to follow throughout hospitalization. SW will follow for emotional and social support. Shelly Jones Feb 08, 2016 11:37
--- NOTE | 2016-02-08 15:18 | HHI.PR ---
Subjective Remarks No acute issues overnight. Reviewed chest X-ray with the family at bedside. Essentially unchanged. Objective Vitals Vital Signs Date Time Temp Pulse Resp B/P Pulse Ox O2 Delivery O2 Flow Rate FiO2 02/08/16 12:38 99.0 100 23 151/90 98 02/08/16 08:11 95.6 73 20 105/79 100 02/08/16 08:05 99 T-piece 5.00 28 02/08/16 08:03 99 T-piece 5.00 28 02/08/16 07:00 103 02/08/16 07:00 T-Piece 5.00 28 02/08/16 04:00 98.4 103 20 136/78 96 02/08/16 00:00 99.2 96 20 133/81 99 02/07/16 20:10 T-Piece 5.00 28 02/07/16 20:05 101 02/07/16 20:00 100.3 91 24 145/85 98 02/07/16 19:42 97 T-piece 6.00 28 02/07/16 19:42 97 T-piece 6.00 28 02/07/16 16:00 98.9 96 20 141/74 99 I/O 02/07/16 02/07/16 02/07/16 02/08/16 02/08/16 02/08/16 07:00 15:00 23:00 07:00 15:00 23:00 Intake Total 907 ml Output Total 1225 ml 1350 ml 1000 ml 500 ml Balance -318 ml -1350 ml -1000 ml -500 ml IV Total 907 ml Output Urine Total 1225 ml 1350 ml 1000 ml 500 ml # Bowel Movements 1 0 0 Result Diagram: 02/07/1618 02/07/1618 Objective Remarks GENERAL: Nonverbal and in no acute distress. Trach in place SKIN: Warm and dry. CARDIOVASCULAR: Regular rate and rhythm without murmurs, gallops, or rubs. RESPIRATORY: Diffuse coarse breath sounds. Upper airway transmission sound. GASTROINTESTINAL: Abdomen soft, non-tender, nondistended. PEG tube in place MUSCULOSKELETAL: No cyanosis, or edema. 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 Continue Keppra and Coumadin- Palliative care following. Monitor on Keppra - Continue Nepro at 55 cc/hr per dietitian recommendations. Respiratory failure: Patient is status post trach Secondary to CVA. Continue pulmonary toilet and neb treatments as needed.Pulmonary following. A-fib: continue Lopressor, warfarin with INR/PT monitoring. Echocardiogram completed in November shows preserved EF UTI: Urine culture growing Klebsiella. Patient was started on Rocephin. Continue Rocephin for now with stop date 02/09/16 Decubitus ulcer: Plastic surgery has been consulted to consider debridement. Non-Hodgkin lymphoma s/p brain biopsy on December 13, by Neurosurgery, Dr. Marin - Pathology consistent with acute infarct without evidence of lymphoma Seen by Oncology, Dr. Whyte, who has signed off for current admission as there are no active oncology issues DM: continue Levemir with sliding scale- monitor and adjust the regimen as needed. D/W Palliative care and family at bedside. Jw Bah MD Feb 08, 2016 15:18
[2016-02-08] MEDS: WARFARIN SOD 3 MG TAB PO SCH (15:30)
--- NOTE | 2016-02-08 15:53 | HHI.HCPN ---
Reason for visit a. To assist with evaluation and management of symptoms including: dyspnea, encephalopathy, depression b. To assist medical decision maker(s) with: better understanding of current medical conditions; weighing benefits/burdens of medical treatment options; making medical treatment decisions. Subjective/Interval History Patient seen today to follow-up with family for requested medical update, patient comfort. Jessenia Jones Palliative SW saw pt earlier, sig other (ex ) Leanne had questions, requested medical update. Pt seen in room, mother, 2 friends at bedside . Dr Bah saw pt as I was concluding exam. Patient is awake, eyes open for the most part. Does appear to track examiner. Appears to blink when family requested to do so, though do not see any other purposeful movements or meaningful communication that I am able to understand. No apparent distress.Course rhonchi audible to the right side chest. Patient supine, did not visualize reported coccyx wound. Patient this morning had low temperature of 95 which significant other was concerned about. For the most part for the past several days temperatures ranged from 99-98-100.3 max. BC obtained yesterday unremarkable. Chemistry obtain yesterday unremarkable. CXR obtained yesterday with no significant changes, continues to indicate bibasilar atelectasis. Ears obtained 1 week ago were negative. Patient remains on Rocephin, which was started on 01/31 for urine positive Klebsiella. Patient remains on 28% T piece. Acetic acid ordered for cleansing tracheostomy site. Patient reported to have worsening wound on coccyx region, Gen./plastic surgery has been consulted, consultation pending. Following exam call to significant other Leanne per her request. I provided medical update, review of most recent diagnostics, current clinical assessment, pending general surgery/plastic surgery evaluation. She informed that she was concerned over the previous weekend over increased secretions around tracheostomy site, and some bloody drainage, which was likely secondary to vigorous cleansing of site. All questions answered, she is appreciative of ongoing medical updates. She would like palliative to contact her again tomorrow after plastic/Gen. has seen /made any recommendations in regards to wound. She has palliative contact information. History brought forward from initial consult by Rita MOCTEZUMA on 01/10/16: This 59-year-old patient was admitted on 12/21/15 via the ED for facial drooping. ED physician notes that patient and patients are poor historians, EMS reported the could not provide good timelines to them. Patient also reported headache, difficulty ambulating. He had known history of recent findings of mass in the brain. During ED course had deterioration of clinical condition and able to protect his airway, unable to follow commands patient was intubated and CT brain obtained. He was admitted for further evaluation and management to the ICU. Ice Skater was consulted and following patient. Pathology on recent brain biopsy (12/13) still pending. CLINICAL/HOSPITAL COURSE: * CT brain= no focal or acute intracranial hemorrhage. New area decreased density in left occipital lobe suggestive of recent nonhemorrhagic infarct, decreased density in previously noted right occipital lobe has increased in size * Brain MRI = new area of restricted diffusion within left occipital lobe suggesting acute infarct. Interval enlargement of the area of restricted diffusion within right occipital lobe suggesting probable extension of right occipital and started on. Underlying enhancement of right occipital lobe is slightly worse than the previous exam and nonspecific. Biopsy has been performed and results are pending. Tiny focal area of restricted diffusion within right cerebellar hemisphere consistent with probable acute/subacute lacunar infarct. Signal abnormality in the SWI sequence within the right occipital lobe suggesting some hemorrhage in biopsy bed. No midline shift or extra-axial fluid collections. * CXR= no acute cardiopulmonary disease * -Neurology consulted, ordered MRA to look for vertebrobasilar stenosis, echo done last admission notes normal EF with normal valves and normal left atrial size. EEG also ordered. MR venogram ordered. EEG= abnormal study consistent with her encephalopathy. MRV indicated basilar occlusion; neurology notes discussion with family regarding chemical code only, also notes discussion regarding risks associated with the anticoagulates, was discussed with radiologist/INR recommended not helpful to extract basilar clot as this could result in patient's . It was felt the colin was infarcted. Further neurology notes "he could be locked in", is acting as if colin is infarcted. * Oncology known to patient also consulted for non-Hodgkin's lymphoma: Dr Whyte documents that there was no evidence of residual or recurrent disease on CT scans of chest, abdomen, pelvis done in October and November of this year. Pathology was still pending, had been sent to [facility] for second opinion. No acute oncology interventions recommended at that time, will follow. * 12/23 - 12/25 febrile. CPAP trials. Remains on vent off of sedation. Withdrawing to pain. Repeat brain MRI= evolving brainstem stroke. Neurology notes extensive discussion with family, notes discussion the patient is locked in but fully aware, family would like to see help patient does over the next 3 months. 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 Biopsy brain lesion appears consistent with acute infarct no lymphoma. Family desires ongoing aggressive measures, will proceed with tracheostomy. Sputum culture positive sensitive Klebsiella. * 01/01 tracheostomy, PEG tube placement * 01/04 trach collar trials, alternating with T piece. Low-grade fever 100.5. CXR = mild bibasilar atelectasis. Neuro: Spontaneously opening eyes, looking up / down, directionally to commands. * 01/07 still "locked in " , transferred off ICU to regular floor. * 01/08 pulmonology consulted-not CXR clear no evidence of pulmonary infection. He may have some underlying COPD recommends continued aerosol treatments. Further notes long discussion with family at bedside regarding tracheostomy, long-term use of trach until patient able to protect his airway, no further recommendations. Palliative care consulted to assist with clarification of goals of treatment. Advance Directives Living Will: Never completed Health Care Surrogate: Never completed Objective Vital Signs Date Time Temp Pulse Resp B/P Pulse Ox O2 Delivery O2 Flow Rate FiO2 02/08/16 12:38 99.0 100 23 151/90 98 02/08/16 08:11 95.6 73 20 105/79 100 02/08/16 08:05 99 T-piece 5.00 28 02/08/16 08:03 99 T-piece 5.00 28 02/08/16 07:00 103 02/08/16 07:00 T-Piece 5.00 28 02/08/16 04:00 98.4 103 20 136/78 96 02/08/16 00:00 99.2 96 20 133/81 99 02/07/16 20:10 T-Piece 5.00 28 02/07/16 20:05 101 02/07/16 20:00 100.3 91 24 145/85 98 02/07/16 19:42 97 T-piece 6.00 28 02/07/16 19:42 97 T-piece 6.00 28 02/07/16 16:00 98.9 96 20 141/74 99 Intake & Output 02/08/16 02/08/16 07:00 19:00 Output Total 1500 ml Balance -1500 ml Output Urine Total 1500 ml # Bowel Movements 0 Physical Exam CONSTITUTIONAL/GENERAL: This is an adequately nourished patient,asleep, no apparent distress TUBES/LINES/DRAINS: PIV left upper extremity, Arevalo catheter, PEG tube, tracheostomy, SCDs, heel protection boots SKIN: No jaundice, rashes, or lesions.No wounds seen anteriorly. Skin temperature appropriate. Not diaphoretic. EYES: eyes closed, sleeping CARDIOVASCULAR: Regular rate and rhythm without murmurs. No JVD. Peripheral pulses symmetric. No peripheral edema. RESPIRATORY/CHEST: Symmetric, unlabored respirations. T piece, 28% FiO2. Course rhonchi throughout. Breath sounds equal bilaterally. GASTROINTESTINAL: Abdomen soft, non-tender, nondistended. No palpable masses. Bowel sounds normoactive.TF infusing to PEG MUSCULOSKELETAL: Extremities without clubbing, cyanosis, or edema. No joint effusion noted. No mottling or clubbing. NEUROLOGICAL: Asleep during my exam, does not arouse to stimuli. PSYCHIATRIC: Difficult to fully assess due to clinical condition. no apparent hallucinations or other psychotic thought process. Diagnostic Tests Laboratory Laboratory Tests Test 02/06/16 02/07/16 02/08/16 14:59 09:18 05:42 Prothrombin Time 24.6 SEC 26.5 SEC 21.3 SEC (9.8-11.4) (9.8-11.4) (9.8-11.4) Prothromb Time International 2.3 RATIO 2.4 RATIO 2.0 RATIO Ratio White Blood Count 8.2 TH/MM3 (4.0-11.0) Red Blood Count 4.23 MIL/MM3 (4.50-5.90) Hemoglobin 10.6 GM/DL (13.0-17.0) Hematocrit 33.6 % (39.0-51.0) Mean Corpuscular Volume 79.4 FL (80.0-100.0) Mean Corpuscular Hemoglobin 25.1 PG (27.0-34.0) Mean Corpuscular Hemoglobin 31.6 % Concent (32.0-36.0) Red Cell Distribution Width 16.0 % (11.6-17.2) Platelet Count 194 TH/MM3 (150-450) Mean Platelet Volume 8.6 FL (7.0-11.0) Hematology Comments Sodium Level 137 MEQ/L (136-145) Potassium Level 3.9 MEQ/L (3.5-5.1) Chloride Level 99 MEQ/L (98-107) Carbon Dioxide Level 25.8 MEQ/L (21.0-32.0) Anion Gap 12 MEQ/L (5-15) Blood Urea Nitrogen 8 MG/DL (7-18) Creatinine 0.62 MG/DL (0.60-1.30) Estimat Glomerular Filtration 132 ML/MIN Rate (>89) Random Glucose 135 MG/DL (74-106) Calcium Level 8.7 MG/DL (8.5-10.1) Result Diagram: 02/07/16 0918 02/07/16 0918 Microbiology 01/31urinepositive Klebsiella 01/31bloodno growth 5 days Imaging Last Impressions Chest X-Ray 02/07/16 0000 Signed Impressions: Service Date/Time: Sunday, February 07, 2016 18:23 - CONCLUSION: 1. Subsegmental basilar opacity characteristic of atelectasis. No effusion or pneumothorax. Tracheostomy unchanged. 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 Anterior circulation remains intact. Mikie Vargas MD Head CT 01/16/16 0000 Signed Impressions: Service Date/Time: Saturday, January 16, 2016 10:51 - CONCLUSION: No extensive low density in the brainstem colin more prominent in the right the left extending into the right middle cerebellar peduncle consistent with brainstem infarct nonhemorrhagic acute [place] MD Brain MRI 01/16/16 0000 Signed Impressions: Service Date/Time: Saturday, January 16, 2016 20:05 - CONCLUSION: Recent infarctions in both occipital lobes and left cerebellum. High flair abnormality within the colin but greater on the right where there is enhancement. This is likely related to progressive acute ischemic changes. Mikie Vargas MD Abdomen X-Ray 01/14/16 0000 Signed Impressions: Service Date/Time: Thursday, January 14, 2016 10:19 - CONCLUSION: Moderate stool; otherwise, negative. 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 No evidence of carotid stenosis. Glen Zamora MD Head/Brain Mag Res Venography 12/22/15 0000 Signed Impressions: Service Date/Time: Tuesday, December 22, 2015 09:22 - CONCLUSION: Normal MRV. Jonel Jones Jr., MD Procedures * 01/01 tracheostomy, PEG tube placement . 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; EEG indicates encephalopathy, neuro following patient felt to be in a "locked-in "state (2) Non-Hodgkin lymphoma Comment: -In remission status post chemotherapy completed May 2015 (3) Acute respiratory failure Comment: Pulmonology following, medical management (4) A-fib (5) Status post stereotactic brain biopsy (6) Brain lesion Comment: Status post biopsy November 2015; pathology consistent with acute infarct without evidence of lymphoma (7) DM (diabetes mellitus) Symptom Scale: (1) Dysphagia Comment: Status post significant CVA, has had PEG tube placed (2) Dyspnea Comment: Respiratory failure secondary to CVA, status post tracheostomy, pulmonary following (3) Encephalopathy Comment: Significant CVA, "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 Albumin 2.4. (5) Depression Comment: At risk for related to "locked in status", communication difficulties , situational, but would likely benefit from anti-depressant Pertinent Non-Medical Issues * Psychosocial:Mr. Flores is originally from [place]. He moved to the [place] around [place] years ago, first to [place] and later to [place]. He is not legally but remains with his ex-, Leanne. They have been together for 31+ years and have three children together: Leanne, Gerald, and Ginny. Gerald is currently in [facility] for work. Mr. Flores has 2 brothers and 7 sisters. His father is of old age. His mother is alive and was living with the patient. Greatly enjoys his family. Retired. 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 * Spiritual: * Legal:Patient due to clinical condition is currently unable to participate in medical decision making. Not clear if or when he will regain this ability. Family does not believe he has completed advance directives. per [place] Statutes, medical proxy decision making would fall to the majority of adult children, as Mr. Flores is not legally . * Ethical issues impacting care: Important Contacts Leanne, daughter: [phone] Ginny, daughter: [phone] Gerald, son: currently in [facility] for work but has communication with his siblings. Leanne, ex-: [phone] Prognosis This patient has had 20 day hospital course thus far, admitted on 62 for a large brainstem infarct, bilateral occipital infarcts. He has subsequently had ongoing encephalopathy and severe communication limitations, neurology feels he is in a "locked-in "state. He has suffered from respiratory failure likely secondary to significant CVA. Appears he should be able to survive this acute hospitalization, however not clear when or if he will regain ability to communicate, based on current assessments patient will require long-term care placement. He will remain high risk for potential competition/setbacks due to immobile status including infections, DVT etc. . Code Status: Full Code Plan * GOALS: Very aggressive. See family conference component on initial consult for additional detail. Meeting In summary: Initially they had many questions regarding admission and biopsy which occurred in November, they ask about differentials and decision making leading to the biopsy, and have many concerns regarding that clinical course--advised that I could not speak to any of those questions or processes as I was not involved in his care and decision making at that time, recommend them to direct those specific questions to those initial providers which provided those services. Otherwise review of conditions, goals as detailed in "issues discussed". Family expresses that Mr. Flores did remarkably well following his chemotherapy for lymphoma just last year, and that he had been doing fine until recent issue in November. They endorsed that he is a fighter, that he is a very optimistic person, and that they are certain he is "in there "and would want to continue fighting for whatever recovery he might have." They have many questions regarding rehabilitation services and placement as well as financial coverage for these services, advised that case management could assist them with the various applications which already in process, but that any placement would depend on funding, or alternatively coleman placement which is up to any individual institution. They would like to maximize PT/OT/ST ongoing while here in the hospital. They also request courtesy consult of to follow him for pulmonary as he is known to the family through their judaism. * 02/08/16 Goals remain aggressive. Medical update provided to ex- Leanne via telephone. All questions answered. She would like additional update tomorrow after plastics/Gen. surgery has evaluated patient wound. Medical updates only to be provided to decision makers which are the patient's adult children (Leanne), as well as the patient ex- (Leanne ) who is involved with patient and children include in decision-making. Palliative will continue to see periodically to provide support and medical updates to family, per their request. * CODE STATUSfull code * Symptoms: == Dysphagia--Status post significant CVA, has had PEG tube placed == Dyspnea --Respiratory failure secondary to CVA, status post tracheostomy, pulmonary following; currently no apparent distress/ CXR bibasilar atelectasis, most recent CXR 02/06, unchanged. == Encephalopathy--Significant CVA, "locked-in" state; follow-up MRI with no significant changes; family endorses patient continues to have limited communication via Lynx and eye motion == Malnutrition--Status post PEG tube placement. tolerating TF; having bowel movements == depression/anxiety -- At risk for related to "locked in status", communication difficulties, situational, but would likely benefit from anti- depressant. Family reports tearful at times when they talk to him. d/w medical attending, celexa 20mg QD had been added-- d/c per family request. Family indicates has not seen any further tearful episodes * Palliative care will continue to follow during hospital course as condition evolves, to assist patient/decision-maker with understanding of medical conditions, weighing benefits/burdens of treatment options, for clarification of goals of treatment. Additionally will assist with any symptoms of palliative concern . Time Spent Total Floor Time (mins): 25 >50% Counseling/Coord of Care: Yes (discussed with medical attending) Attestation To help prompt me to consider important information that might be impacting today's encounter and assessment, information from prior notes written by myself or my colleagues may have been "brought forward" into today's note. My signature on this note, however, is an attestation that I personally performed the exam, history, and/or decision-making noted today, and, unless otherwise indicated, the interactions with patient, family, and staff as well as the review of records all occurred today. I also attest that the listed assessment and stated plan reflect my best clinical judgment today based on the combination of historical information, prior notes, and today's exam/ interactions. When time spent is documented, it refers only to time spent today by the signer, or if indicated, combined time spent today by collaborating physician/nurse practitioner. Tiara Colin Feb 08, 2016 15:53
[2016-02-08] MEDS: ACETAMINOPHEN 650 MG/20.3 ML UDC TUBE PRN (16:37)
--- NOTE | 2016-02-08 17:28 | HHI.PR ---
Subjective Remarks 60 YO Male with RF, Encephalopathy On Trach collar More awake Cough on suctioning Family at BS CXR subsegmental atelactesis Objective Vital Signs Vital Signs Date Time Temp Pulse Resp B/P Pulse Ox O2 Delivery O2 Flow Rate FiO2 02/08/16 16:00 100.8 102 20 147/68 97 02/08/16 12:38 99.0 100 23 151/90 98 02/08/16 08:11 95.6 73 20 105/79 100 02/08/16 08:05 99 T-piece 5.00 28 02/08/16 08:03 99 T-piece 5.00 28 02/08/16 07:00 103 02/08/16 07:00 T-Piece 5.00 28 02/08/16 04:00 98.4 103 20 136/78 96 02/08/16 00:00 99.2 96 20 133/81 99 02/07/16 20:10 T-Piece 5.00 28 02/07/16 20:05 101 02/07/16 20:00 100.3 91 24 145/85 98 02/07/16 19:42 97 T-piece 6.00 28 02/07/16 19:42 97 T-piece 6.00 28 I/O 02/07/16 02/07/16 02/07/16 02/08/16 02/08/16 02/08/16 07:00 15:00 23:00 07:00 15:00 23:00 Intake Total 907 ml Output Total 1225 ml 1350 ml 1000 ml 500 ml 400 ml Balance -318 ml -1350 ml -1000 ml -500 ml -400 ml IV Total 907 ml Output Urine Total 1225 ml 1350 ml 1000 ml 500 ml 400 ml # Bowel Movements 1 0 0 2 Result Diagram: 02/07/1691702/07/1618 Objective Remarks GENERAL: Well-nourished, well-developed patient. SKIN: Warm and dry. HEAD: Normocephalic. EYES: No scleral icterus. No injection or drainage. NECK: Supple, trachea midline. No JVD or lymphadenopathy. trach in place CARDIOVASCULAR: Regular rate and rhythm without murmurs, gallops, or rubs. RESPIRATORY: Breath sounds equal bilaterally. No accessory muscle use. GASTROINTESTINAL: Abdomen soft, non-tender, nondistended. MUSCULOSKELETAL: No cyanosis, or edema. BACK: Nontender without obvious deformity. No CVA tenderness. A/P Assessment and Plan Resp Failure, s/p trach Encephalopathy AF DM PLAN: Trach care TF Cont Cristopher MCFARLANE family at . Aureliano Grove MD Feb 08, 2016 17:28
[2016-02-08] MEDS: INSULIN DETEMIR 100 UNITS/ML VIAL SQ SCH (21:22)
[2016-02-09] VITALS (10 sets, daily range): BP systolic 118–145; BP diastolic 73–92; PULSE 83–111; RESP 22–25; TEMP 96.1–98.5; O2SAT 94–100
[2016-02-09] MEDS: FREE WATER TUBE SCH ×6 (04:00→20:26)
[2016-02-09] MEDS: ACETIC ACID 0.25% SOLN 1000 ML IRR BTL IRRIGATION SCH ×3 (05:37→20:26)
[2016-02-09] MEDS: cefTRIAXone INJ 1,000 MG in SODIUM CHLORIDE 0.9% INJ 100 ML IV SCH (05:37)
[2016-02-09] MEDS: INSULIN ASPART SUPPLEMENTAL SCALE SQ SCH ×4 (05:58→18:00)
[2016-02-09 07:56] LABS: INTERNATIONAL NORMALIZED RATIO 2.1 RATIO; PROTHROMBIN TIME - PATIENT 23.2 SEC (9.8-11.4)
[2016-02-09] MEDS: NYSTATIN 100,000 U/GM PWD 15 GM BTL TOPICAL SCH ×2 (08:34→20:33)
[2016-02-09] MEDS: RANITIDINE HCL SYRUP 150 MG/10 ML UDC PO SCH (08:34)
[2016-02-09] MEDS: levETIRAcetam 500 MG/5 ML UDC TUBE SCH ×2 (08:34→20:26)
[2016-02-09] MEDS: LACTOBACILLUS ACIDOPHILUS 1 GM PACKET TUBE SCH ×2 (08:35→20:26)
[2016-02-09] MEDS: SENNOSIDES SYRUP 8.8 MG/5 ML CUP TUBE SCH ×2 (08:35→20:26)
[2016-02-09] MEDS: METOPROLOL TARTRATE 50 MG TAB GT SCH ×3 (08:35→18:00)
[2016-02-09] MEDS: RESP: IPRATROPIUM 0.5 MG/2.5 ML NEB NEB SCH ×3 (08:43→19:52)
--- NOTE | 2016-02-09 15:55 | HHI.PR ---
Subjective Remarks No acute issues overnight. Neurological status is unchanged. Moderate amount of secretions. Objective Vitals Vital Signs Date Time Temp Pulse Resp B/P Pulse Ox O2 Delivery O2 Flow Rate FiO2 02/09/16 12:00 97.5 95 25 145/75 97 02/09/16 09:04 96.1 111 22 138/92 02/09/16 08:43 97 T-piece 28 02/09/16 08:43 97 T-piece 28 02/09/16 04:37 99 T-piece 6.00 02/09/16 04:00 96.5 108 24 145/84 98 02/09/16 01:44 97 T-Piece 4.00 02/09/16 00:20 98.5 88 24 125/75 94 02/08/16 20:05 100 T-piece 7.00 02/08/16 20:01 87 02/08/16 20:00 97.9 92 24 114/69 95 02/08/16 16:00 100.8 102 20 147/68 97 I/O 02/08/16 02/08/16 02/08/16 02/09/16 02/09/16 02/09/16 06:59 14:59 22:59 06:59 14:59 22:59 Output Total 500 ml 400 ml 950 ml 250 ml 450 ml Balance -500 ml -400 ml -950 ml -250 ml -450 ml Output Urine Total 500 ml 400 ml 950 ml 250 ml 450 ml # Bowel Movements 0 2 Result Diagram: 02/07/1691702/07/16917 Objective Remarks GENERAL: Nonverbal and in no acute distress. Trach in place SKIN: Warm and dry. CARDIOVASCULAR: Regular rate and rhythm without murmurs, gallops, or rubs. RESPIRATORY: Diffuse coarse breath sounds. Upper airway transmission sound. GASTROINTESTINAL: Abdomen soft, non-tender, nondistended. PEG tube in place MUSCULOSKELETAL: No cyanosis, or edema. Neuro: Non verbal, non interactive. Eyes open. 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 SIgnificant residual cognitive deficit. Non verbal. Continue Keppra and Coumadin- Palliative care following. Monitor on Keppra - Continue Nepro at 55 cc/hr per dietitian recommendations. Respiratory failure: Patient is status post trach Secondary to CVA. Continue pulmonary toilet and neb treatments as needed.Pulmonary following. A-fib: continue Lopressor, warfarin with INR/PT monitoring. Echocardiogram completed in November shows preserved EF UTI: Urine culture growing Klebsiella. Patient was started on Rocephin. Continue Rocephin for now with stop date 02/09/16 Coccyx pressure ulcer: Plastic surgery has been consulted to consider debridement. Follow wound care recs, encourage frequent turning Non-Hodgkin lymphoma s/p brain biopsy on December 13, by Neurosurgery, Dr. Marin - Pathology consistent with acute infarct without evidence of lymphoma Seen by Oncology, Dr. Whyte, who has signed off for current admission as there are no active oncology issues DM: continue Levemir with sliding scale- monitor and adjust the regimen as needed. Jw Bah MD Feb 09, 2016 15:54
[2016-02-09] MEDS: WARFARIN SOD 3 MG TAB PO SCH (16:00)
--- NOTE | 2016-02-09 16:31 | HHI.HCPN ---
Call to ex Leanne per her request to update on gen surgery/plastic recommendations, update that gen surg has signed off as they do not address this type of wound and that plastic surgery consult pending. Tiara Colin Feb 09, 2016 16:31
--- NOTE | 2016-02-09 18:02 | HHI.PR ---
Subjective Remarks 60 YO Male with RF, Encephalopathy On Trach collar More awake Cough on suctioning Family at BS CXR subsegmental atelactesis No new complaint reported. Objective Vital Signs Vital Signs Date Time Temp Pulse Resp B/P Pulse Ox O2 Delivery O2 Flow Rate FiO2 02/09/16 16:00 98.0 83 22 118/73 99 02/09/16 12:00 97.5 95 25 145/75 97 02/09/16 09:04 96.1 111 22 138/92 02/09/16 08:43 97 T-piece 28 02/09/16 08:43 97 T-piece 28 02/09/16 04:37 99 T-piece 6.00 28 02/09/16 04:00 96.5 108 24 145/84 98 02/09/16 01:44 97 T-Piece 4.00 02/09/16 00:20 98.5 88 24 125/75 94 02/08/16 20:05 100 T-piece 7.00 02/08/16 20:01 87 02/08/16 20:00 97.9 92 24 114/69 95 I/O 02/08/16 02/08/16 02/08/16 02/09/16 02/09/16 02/09/16 07:00 15:00 23:00 07:00 15:00 23:00 Output Total 500 ml 400 ml 950 ml 250 ml 800 ml 600 ml Balance -500 ml -400 ml -950 ml -250 ml -800 ml -600 ml Output Urine Total 500 ml 400 ml 950 ml 250 ml 800 ml 600 ml # Bowel Movements 0 2 Result Diagram: 02/07/1691702/07/16917 Objective Remarks GENERAL: Well-nourished, well-developed patient. SKIN: Warm and dry. HEAD: Normocephalic. EYES: No scleral icterus. No injection or drainage. NECK: Supple, trachea midline. No JVD or lymphadenopathy. trach in place CARDIOVASCULAR: Regular rate and rhythm without murmurs, gallops, or rubs. RESPIRATORY: Breath sounds equal bilaterally. No accessory muscle use. GASTROINTESTINAL: Abdomen soft, non-tender, nondistended. MUSCULOSKELETAL: No cyanosis, or edema. BACK: Nontender without obvious deformity. No CVA tenderness. A/P Assessment and Plan Resp Failure, s/p trach Encephalopathy AF DM PLAN: Trach care TF Cont Keppra Zantac DW family at BS. Aureliano Grove MD Feb 09, 2016 18:01
[2016-02-09] MEDS: INSULIN DETEMIR 100 UNITS/ML VIAL SQ SCH (20:26)
[2016-02-10] VITALS (10 sets, daily range): BP systolic 121–145; BP diastolic 75–87; PULSE 73–104; RESP 18–24; TEMP 96.6–98; O2SAT 97–100
[2016-02-10] MEDS: FREE WATER TUBE SCH ×7 (00:04→23:26)
[2016-02-10] MEDS: cefTRIAXone INJ 1,000 MG in SODIUM CHLORIDE 0.9% INJ 100 ML IV SCH (05:23)
[2016-02-10] MEDS: ACETIC ACID 0.25% SOLN 1000 ML IRR BTL IRRIGATION SCH ×3 (05:25→20:51)
[2016-02-10] MEDS: INSULIN ASPART SUPPLEMENTAL SCALE SQ SCH ×5 (05:34→23:25)
[2016-02-10 06:19] LABS: INTERNATIONAL NORMALIZED RATIO 2.1 RATIO; PROTHROMBIN TIME - PATIENT 22.3 SEC (9.8-11.4)
[2016-02-10] MEDS: LACTOBACILLUS ACIDOPHILUS 1 GM PACKET TUBE SCH (09:00)
[2016-02-10] MEDS: RESP: IPRATROPIUM 0.5 MG/2.5 ML NEB NEB SCH ×3 (09:12→19:22)
[2016-02-10] MEDS: RANITIDINE HCL SYRUP 150 MG/10 ML UDC PO SCH (09:29)
[2016-02-10] MEDS: SENNOSIDES SYRUP 8.8 MG/5 ML CUP TUBE SCH ×2 (09:29→20:43)
[2016-02-10] MEDS: levETIRAcetam 500 MG/5 ML UDC TUBE SCH ×2 (09:29→20:43)
[2016-02-10] MEDS: METOPROLOL TARTRATE 50 MG TAB GT SCH ×3 (09:29→17:11)
[2016-02-10] MEDS: NYSTATIN 100,000 U/GM PWD 15 GM BTL TOPICAL SCH ×2 (09:30→20:49)
--- NOTE | 2016-02-10 14:35 | HHI.PR ---
Subjective Remarks No acute events overnight, nursing still having issues with Lactinex packet causing PEG tube to occasionally get clog. Objective Vitals Vital Signs Date Time Temp Pulse Resp B/P Pulse Ox O2 Delivery O2 Flow Rate FiO2 02/10/16 12:00 96.6 91 20 121/75 100 02/10/16 11:08 T-Piece 5.00 02/10/16 09:15 99 T-piece 28 02/10/16 09:15 99 T-piece 28 02/10/16 08:00 96.8 103 22 145/81 99 02/10/16 07:29 102 02/10/16 05:36 97.1 95 22 138/84 98 02/10/16 04:04 100 T-piece 5.00 02/10/16 00:23 97.3 104 24 142/87 98 02/09/16 20:00 98.2 96 24 123/77 99 02/09/16 19:52 100 T-piece 02/09/16 16:00 98.0 83 22 118/73 99 I/O 02/09/16 02/09/16 02/09/16 02/10/16 02/10/16 02/10/16 07:00 15:00 23:00 07:00 15:00 23:00 Output Total 250 ml 800 ml 1400 ml 750 ml Balance -250 ml -800 ml -1400 ml -750 ml Output Urine Total 250 ml 800 ml 1400 ml 750 ml # Bowel Movements 0 0 Result Diagram: 02/07/1691702/07/16917 Objective Remarks GENERAL: Nonverbal and in no acute distress. Trach in place SKIN: Warm and dry. CARDIOVASCULAR: Regular rate and rhythm without murmurs, gallops, or rubs. RESPIRATORY: Diffuse coarse breath sounds. Upper airway transmission sound. GASTROINTESTINAL: Abdomen soft, non-tender, nondistended. PEG tube in place MUSCULOSKELETAL: No cyanosis, or edema. Neuro: Non verbal, non interactive. Eyes open. 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 Significant residual cognitive deficit. Non verbal. Continue Keppra and Coumadin- Palliative care following. Monitor on Keppra - Continue Nepro at 55 cc/hr per dietitian recommendations. - Change Lactinex to tablet which can be crushed. Respiratory failure: Patient is status post trach Secondary to CVA. Continue pulmonary toilet and neb treatments as needed.Pulmonary following. A-fib: continue Lopressor, warfarin with INR/PT monitoring. Echocardiogram completed in November shows preserved EF UTI: Urine culture growing Klebsiella. Patient was started on Rocephin. Continue completed treatment with Rocephin. Coccyx pressure ulcer: Plastic surgery has been consulted to consider debridement. Follow wound care recs, encourage frequent turning Non-Hodgkin lymphoma s/p brain biopsy on December 13, by Neurosurgery, Dr. Marin - Pathology consistent with acute infarct without evidence of lymphoma Seen by Oncology, Dr. Whyte, who has signed off for current admission as there are no active oncology issues DM: continue Levemir with sliding scale- monitor and adjust the regimen as needed. Jw Bah MD Feb 10, 2016 14:34
--- NOTE | 2016-02-10 14:44 | HHI.PR ---
Subjective Remarks 60 YO Male with RF, Encephalopathy On Trach collar Cough on suctioning Family at CXR subsegmental atelactesis No new complaint reported. Objective Vital Signs Vital Signs Date Time Temp Pulse Resp B/P Pulse Ox O2 Delivery O2 Flow Rate FiO2 02/10/16 12:00 96.6 91 20 121/75 100 02/10/16 11:08 T-Piece 5.00 28 02/10/16 09:15 99 T-piece 28 02/10/16 09:15 99 T-piece 28 02/10/16 08:00 96.8 103 22 145/81 99 02/10/16 07:29 102 02/10/16 05:36 97.1 95 22 138/84 98 02/10/16 04:04 100 T-piece 5.00 28 02/10/16 00:23 97.3 104 24 142/87 98 02/09/16 20:00 98.2 96 24 123/77 99 02/09/16 19:52 100 T-piece 28 02/09/16 16:00 98.0 83 22 118/73 99 I/O 02/09/16 02/09/16 02/09/16 02/10/16 02/10/16 02/10/16 06:59 14:59 22:59 06:59 14:59 22:59 Output Total 250 ml 800 ml 1400 ml 750 ml Balance -250 ml -800 ml -1400 ml -750 ml Output Urine Total 250 ml 800 ml 1400 ml 750 ml # Bowel Movements 0 0 Result Diagram: 02/07/1691702/07/16917 Objective Remarks GENERAL: Well-nourished, well-developed patient. SKIN: Warm and dry. HEAD: Normocephalic. EYES: No scleral icterus. No injection or drainage. NECK: Supple, trachea midline. No JVD or lymphadenopathy. trach in place CARDIOVASCULAR: Regular rate and rhythm without murmurs, gallops, or rubs. RESPIRATORY: Breath sounds equal bilaterally. No accessory muscle use. GASTROINTESTINAL: Abdomen soft, non-tender, nondistended. MUSCULOSKELETAL: No cyanosis, or edema. BACK: Nontender without obvious deformity. No CVA tenderness. A/P Assessment and Plan Resp Failure, s/p trach Encephalopathy AF DM PLAN: Trach care TF Cont Cristopher March DW family at . Stable from pulm standpoint. Aureliano Grove MD Feb 10, 2016 14:44
[2016-02-10] MEDS: WARFARIN SOD 3 MG TAB PO SCH (16:23)
[2016-02-10] MEDS: LACTOBACILLUS ACIDOPHILUS TAB PO SCH (20:43)
[2016-02-10] MEDS: INSULIN DETEMIR 100 UNITS/ML VIAL SQ SCH (20:44)
[2016-02-11] VITALS (9 sets, daily range): BP systolic 116–158; BP diastolic 75–97; PULSE 87–104; RESP 20; TEMP 96.4–100.2; O2SAT 97–100
[2016-02-11] MEDS: FREE WATER TUBE SCH ×5 (03:47→21:13)
[2016-02-11] MEDS: INSULIN ASPART SUPPLEMENTAL SCALE SQ SCH ×3 (06:00→17:33)
[2016-02-11] MEDS: ACETIC ACID 0.25% SOLN 1000 ML IRR BTL IRRIGATION SCH ×3 (06:06→21:22)
[2016-02-11 07:21] LABS: PROTHROMBIN TIME - PATIENT 21.7 SEC (9.8-11.4)
[2016-02-11] MEDS: RESP: IPRATROPIUM 0.5 MG/2.5 ML NEB NEB SCH ×3 (08:23→20:12)
[2016-02-11] MEDS: LACTOBACILLUS ACIDOPHILUS TAB PO SCH ×2 (09:20→21:13)
[2016-02-11] MEDS: NYSTATIN 100,000 U/GM PWD 15 GM BTL TOPICAL SCH ×2 (09:20→21:22)
[2016-02-11] MEDS: METOPROLOL TARTRATE 50 MG TAB GT SCH ×3 (09:20→17:34)
[2016-02-11] MEDS: levETIRAcetam 500 MG/5 ML UDC TUBE SCH ×2 (09:20→21:13)
[2016-02-11] MEDS: SENNOSIDES SYRUP 8.8 MG/5 ML CUP TUBE SCH ×2 (09:20→21:13)
[2016-02-11] MEDS: RANITIDINE HCL SYRUP 150 MG/10 ML UDC PO SCH (09:20)
--- NOTE | 2016-02-11 12:11 | HHI.PR ---
Subjective Remarks 60 YO Male with RF, Encephalopathy On Trach collar Cough on suctioning Family at CXR subsegmental atelactesis No new complaint reported. Objective Vital Signs Vital Signs Date Time Temp Pulse Resp B/P Pulse Ox O2 Delivery O2 Flow Rate FiO2 02/11/16 11:10 T-Piece 5.00 28 02/11/16 08:32 98 T-piece 6.00 28 02/11/16 08:00 97.4 102 20 133/81 98 02/11/16 07:29 90 02/11/16 04:00 97.6 101 20 158/95 98 02/11/16 00:00 98.1 96 20 121/75 97 02/10/16 20:00 98.0 88 20 140/75 98 02/10/16 19:22 97 T-piece 28 02/10/16 19:22 97 T-piece 6.00 28 02/10/16 16:00 97.2 73 18 139/75 99 I/O 02/10/16 02/10/16 02/10/16 02/11/16 02/11/16 02/11/16 06:59 14:59 22:59 06:59 14:59 22:59 Output Total 750 ml 900 ml 1100 ml 900 ml Balance -750 ml -900 ml -1100 ml -900 ml Output Urine Total 750 ml 900 ml 1100 ml 900 ml # Bowel Movements 0 1 Result Diagram: 02/07/1691702/07/16917 Objective Remarks GENERAL: Well-nourished, well-developed patient. SKIN: Warm and dry. HEAD: Normocephalic. EYES: No scleral icterus. No injection or drainage. NECK: Supple, trachea midline. No JVD or lymphadenopathy. trach in place CARDIOVASCULAR: Regular rate and rhythm without murmurs, gallops, or rubs. RESPIRATORY: Breath sounds equal bilaterally. No accessory muscle use. GASTROINTESTINAL: Abdomen soft, non-tender, nondistended. MUSCULOSKELETAL: No cyanosis, or edema. BACK: Nontender without obvious deformity. No CVA tenderness. A/P Assessment and Plan Resp Failure, s/p trach Encephalopathy AF DM PLAN: Trach care TF Cont Anthonyra Anca DW family at . Stable from pulm standpoint. Dr.Wahba joseph FU in AM. Aureliano Grove MD Feb 11, 2016 12:11
--- NOTE | 2016-02-11 14:53 | HHI.PR ---
Subjective Remarks Having less secretions today. No longer having issues with Lactinex clogging the PEG. Tablets working better. Objective Vitals Vital Signs Date Time Temp Pulse Resp B/P Pulse Ox O2 Delivery O2 Flow Rate FiO2 02/11/16 12:00 96.4 88 20 137/83 100 02/11/16 11:10 T-Piece 5.00 28 02/11/16 08:32 98 T-piece 6.00 28 02/11/16 08:00 97.4 102 20 133/81 98 02/11/16 07:29 90 02/11/16 04:00 97.6 101 20 158/95 98 02/11/16 00:00 98.1 96 20 121/75 97 02/10/16 20:00 98.0 88 20 140/75 98 02/10/16 19:22 97 T-piece 28 02/10/16 19:22 97 T-piece 6.00 28 02/10/16 16:00 97.2 73 18 139/75 99 I/O 02/10/16 02/10/16 02/10/16 02/11/16 02/11/16 02/11/16 07:00 15:00 23:00 07:00 15:00 23:00 Output Total 750 ml 900 ml 1100 ml 900 ml Balance -750 ml -900 ml -1100 ml -900 ml Output Urine Total 750 ml 900 ml 1100 ml 900 ml # Bowel Movements 0 1 Result Diagram: 02/07/1691702/07/16917 Objective Remarks GENERAL: Nonverbal and in no acute distress. Trach in place SKIN: Warm and dry. CARDIOVASCULAR: Regular rate and rhythm without murmurs, gallops, or rubs. RESPIRATORY: Diffuse coarse breath sounds. Breath sounds equal and clear to auscultation anteriorly GASTROINTESTINAL: Abdomen soft, non-tender, nondistended. PEG tube in place MUSCULOSKELETAL: No cyanosis, or edema. Neuro: Non verbal, non interactive. Eyes open. 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 Significant residual cognitive deficit. Non verbal. Continue Keppra and Coumadin- Palliative care following. Monitor on Keppra - Continue Nepro at 55 cc/hr per dietitian recommendations. - Change Lactinex to tablet which can be crushed. Respiratory failure: Patient is status post trach Secondary to CVA. Continue pulmonary toilet and neb treatments as needed.Pulmonary following. A-fib: continue Lopressor, warfarin with INR/PT monitoring. Echocardiogram completed in November shows preserved EF UTI: Urine culture growing Klebsiella. Patient was started on Rocephin. Continue completed treatment with Rocephin. Coccyx pressure ulcer: Plastic surgery has been consulted to consider debridement. Follow wound care recs, encourage frequent turning Non-Hodgkin lymphoma s/p brain biopsy on December 13, by Neurosurgery, Dr. Marin - Pathology consistent with acute infarct without evidence of lymphoma Seen by Oncology, Dr. Whyte, who has signed off for current admission as there are no active oncology issues DM: continue Levemir with sliding scale- monitor and adjust the regimen as needed. Jw Bah MD Feb 11, 2016 14:53
[2016-02-11] MEDS: WARFARIN SOD 3 MG TAB PO SCH (17:34)
[2016-02-11] MEDS: INSULIN DETEMIR 100 UNITS/ML VIAL SQ SCH (21:13)
[2016-02-12] VITALS (9 sets, daily range): BP systolic 120–143; BP diastolic 75–85; PULSE 70–98; RESP 18–24; TEMP 96.2–99; O2SAT 95–100
[2016-02-12] MEDS: FREE WATER TUBE SCH ×7 (05:08→20:00)
[2016-02-12] MEDS: INSULIN ASPART SUPPLEMENTAL SCALE SQ SCH ×4 (05:09→17:44)
[2016-02-12] MEDS: ACETIC ACID 0.25% SOLN 1000 ML IRR BTL IRRIGATION SCH ×3 (05:18→21:20)
[2016-02-12] MEDS: levETIRAcetam 500 MG/5 ML UDC TUBE SCH ×2 (08:25→21:18)
[2016-02-12] MEDS: RANITIDINE HCL SYRUP 150 MG/10 ML UDC PO SCH (08:25)
[2016-02-12] MEDS: METOPROLOL TARTRATE 50 MG TAB GT SCH ×3 (08:25→17:34)
[2016-02-12] MEDS: LACTOBACILLUS ACIDOPHILUS TAB PO SCH (08:25)
[2016-02-12] MEDS: SENNOSIDES SYRUP 8.8 MG/5 ML CUP TUBE SCH ×2 (08:25→21:19)
[2016-02-12] MEDS: NYSTATIN 100,000 U/GM PWD 15 GM BTL TOPICAL SCH ×2 (08:26→21:00)
[2016-02-12] MEDS: RESP: IPRATROPIUM 0.5 MG/2.5 ML NEB NEB SCH ×3 (08:29→20:36)
[2016-02-12 08:36] LABS: PROTHROMBIN TIME - PATIENT 21.5 SEC (9.8-11.4)
--- NOTE | 2016-02-12 13:20 | HHI.PR ---
Subjective Remarks PEG tube is clogged and is nonfunctioning. He is having some blood-tinged secretions from the trach. No respiratory distress. Cough is about the same. Objective Vitals Vital Signs Date Time Temp Pulse Resp B/P Pulse Ox O2 Delivery O2 Flow Rate FiO2 02/12/16 12:00 96.2 83 18 120/75 98 02/12/16 08:30 100 T-piece 5.00 02/12/16 08:00 98.2 70 18 128/85 96 02/12/16 04:00 98.0 97 24 137/84 99 02/12/16 00:00 98.1 94 20 141/80 96 02/11/16 20:18 97 T-piece 6.00 58 02/11/16 20:18 97 T-piece 6.00 58 02/11/16 20:00 100.2 90 20 158/97 99 02/11/16 16:00 96.4 87 20 116/76 97 I/O 02/11/16 02/11/16 02/11/16 02/12/16 02/12/16 02/12/16 07:00 15:00 23:00 07:00 15:00 23:00 Intake Total 0 ml Output Total 900 ml 900 ml 600 ml 1800 ml Balance -900 ml -900 ml -600 ml -1800 ml Intake Oral 0 ml Output Urine Total 900 ml 900 ml 600 ml 1800 ml # Bowel Movements 0 0 1 Objective Remarks GENERAL: Nonverbal and in no acute distress. Trach in place SKIN: Warm and dry. CARDIOVASCULAR: Regular rate and rhythm without murmurs, gallops, or rubs. RESPIRATORY: Diffuse coarse breath sounds. Breath sounds equal and clear to auscultation anteriorly GASTROINTESTINAL: Abdomen soft, non-tender, nondistended. PEG tube in place MUSCULOSKELETAL: No cyanosis, or edema. Neuro: Non verbal, non interactive. Eyes open. 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 Significant residual cognitive deficit. Non verbal. Continue Keppra and Coumadin- Palliative care following. Monitor on Keppra - Continue Nepro at 55 cc/hr per dietitian recommendations. GI: PEG tube is clogged. Reconsult GI for tube PEG replacement. Respiratory failure: Patient is status post trach Secondary to CVA. Continue pulmonary toilet and neb treatments as needed.Pulmonary following. - Obtain Chex x-ray to ensure trach is in place. - Blood-tinged secretion could be secondary to suctioning. Continue to monitor A-fib: continue Lopressor, warfarin with INR/PT monitoring. Echocardiogram completed in November shows preserved EF UTI: Urine culture growing Klebsiella. Patient was started on Rocephin. Continue completed treatment with Rocephin. Coccyx pressure ulcer: Plastic surgery has been consulted to consider debridement. Follow wound care recs, encourage frequent turning Non-Hodgkin lymphoma s/p brain biopsy on December 13, by Neurosurgery, Dr. Marin - Pathology consistent with acute infarct without evidence of lymphoma Seen by Oncology, Dr. Whyte, who has signed off for current admission as there are no active oncology issues DM: continue Levemir with sliding scale- monitor and adjust the regimen as needed. Jw Bah MD Feb 12, 2016 13:20
--- NOTE | 2016-02-12 14:07 | RADRPT ---
EXAM DATE/TIME: 02/12/2016 13:27 [facility] COMPARISON: No previous studies available for comparison. INDICATIONS : Evaluate trach placement. MEDICAL HISTORY : Hypertension. Diabetes mellitus type II. Lymphoma. SURGICAL HISTORY : Unobtainable. ENCOUNTER: Subsequent ACUITY: 3 weeks PAIN SCORE: Non-responsive. LOCATION: Bilateral chest FINDINGS: Tracheostomy in satisfactory position. Subsegmental basilar air space disease bilaterally characteris tic of atelectasis. Stable elevated right hemidiaphragm. No effusion or pneumothorax. CONCLUSION: Subsegmental basilar atelectasis similar to prior study. No consolidation and no effusion. Tracheosto my in satisfactory position. Durga Dotson MD on February 12, 2016 at 14:03 Board Certified Radiologist. This report was verified electronically.
--- NOTE | 2016-02-12 16:03 | HHI.GIFU ---
Subjective Remarks Reconsulted for malfunctioning PEG tube- clogged, unable to flush. Nurses believe the lactinex is not fully dissolving and causing the PEG to frequently become clogged. (Cielo Sorensen) Objective Vitals I&O Vital Signs Date Time Temp Pulse Resp B/P Pulse Ox O2 Delivery O2 Flow Rate FiO2 02/12/16 12:00 96.2 83 18 120/75 98 02/12/16 08:30 100 T-piece 5.00 02/12/16 08:00 98.2 70 18 128/85 96 02/12/16 04:00 98.0 97 24 137/84 99 02/12/16 00:00 98.1 94 20 141/80 96 02/11/16 20:18 97 T-piece 6.00 58 02/11/16 20:18 97 T-piece 6.00 58 02/11/16 20:00 100.2 90 20 158/97 99 02/11/16 16:00 96.4 87 20 116/76 97 I/O 02/11/16 02/11/16 02/11/16 02/12/16 02/12/16 02/12/16 06:59 14:59 22:59 06:59 14:59 22:59 Intake Total 0 ml Output Total 900 ml 900 ml 600 ml 1800 ml Balance -900 ml -900 ml -600 ml -1800 ml Intake Oral 0 ml Output Urine Total 900 ml 900 ml 600 ml 1800 ml # Bowel Movements 0 0 1 Laboratory Laboratory Tests Test 02/12/16 07:30 Prothrombin Time 21.5 Prothromb Time International 2.0 Ratio Imaging Last Impressions Chest X-Ray 02/12/16 0000 Signed Impressions: Service Date/Time: Friday, February 12, 2016 13:27 - CONCLUSION: Subsegmental basilar atelectasis similar to prior study. No consolidation and no effusion. Tracheostomy in satisfactory position. 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 Anterior circulation remains intact. Mikie Vargas MD Head CT 01/16/16 0000 Signed Impressions: Service Date/Time: Saturday, January 16, 2016 10:51 - CONCLUSION: No extensive low density in the brainstem colin more prominent in the right the left extending into the right middle cerebellar peduncle consistent with brainstem infarct nonhemorrhagic acute Wellington West MD Brain MRI 01/16/16 0000 Signed Impressions: Service Date/Time: Saturday, January 16, 2016 20:05 - CONCLUSION: Recent infarctions in both occipital lobes and left cerebellum. High flair abnormality within the colin but greater on the right where there is enhancement. This is likely related to progressive acute ischemic changes. Mikie Vargas MD Abdomen X-Ray 01/14/16 0000 Signed Impressions: Service Date/Time: Thursday, January 14, 2016 10:19 - CONCLUSION: Moderate stool; otherwise, negative. 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 No evidence of carotid stenosis. Glen Zamora MD Head/Brain Mag Res Venography 12/22/15 0000 Signed Impressions: Service Date/Time: Tuesday, December 22, 2015 09:22 - CONCLUSION: Normal MRV. Jonel Jones Jr., MD Physical Exam HEENT: Normocephalic; atraumatic; no jaundice. CHEST: Scattered rhonchi. Tracheostomy CARDIAC: RRR. ABDOMEN: Soft, round, nondistended, nontender; no hepatosplenomegaly; bowel sounds are present in all four quadrants. PEG tube site without redness, swelling,drainage EXTREMITIES: Generalized edema. SKIN: Normal; no rash; no jaundice. 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 S/P EGD with PEG tube placement (01/01). Reconsulted for malfunctioning PEG tube- clogged, unable to flush. Nurses believe the lactinex is not fully dissolving and causing the PEG to frequently become clogged. Attempted to flush with small gauge syringe and both warm water and michael terry. Unable to flush. Removed PEG and replaced with #20 replacement peg without difficulty. Gastric secretions in return. Tolerated well. PLAN: - S/P PEG tube exchange- tolerated well - Resume TF - D/C Lactinex - GI will sign off, please reconsult as needed. - Pt seen and examined by Dr. Urena and myself and this note is written on his behalf (Cielo Sorensen) Physician Comments Seen and examined with Ms. Sorensen , Peg tube exchanged at the bedside by RHIANNA. Position verified. Reconsult as needed. Thank you (Ramana Urena MD) Cielo Sorensen Feb 12, 2016 16:03 Ramana Urena MD Feb 12, 2016 17:41
[2016-02-12] MEDS: WARFARIN SOD 4 MG TAB PO SCH (17:34)
[2016-02-12] MEDS: INSULIN DETEMIR 100 UNITS/ML VIAL SQ SCH (21:22)
[2016-02-13] VITALS (10 sets, daily range): BP systolic 120–135; BP diastolic 72–79; PULSE 80–104; RESP 18–20; TEMP 96.9–98.9; O2SAT 95–100
[2016-02-13] MEDS: FREE WATER TUBE SCH ×6 (04:00→20:00)
[2016-02-13] MEDS: ACETIC ACID 0.25% SOLN 1000 ML IRR BTL IRRIGATION SCH ×3 (06:00→21:18)
[2016-02-13] MEDS: INSULIN ASPART SUPPLEMENTAL SCALE SQ SCH ×4 (06:00→17:57)
[2016-02-13] MEDS: RANITIDINE HCL SYRUP 150 MG/10 ML UDC PO SCH (09:00)
[2016-02-13] MEDS: NYSTATIN 100,000 U/GM PWD 15 GM BTL TOPICAL SCH ×2 (09:00→21:00)
[2016-02-13] MEDS: SENNOSIDES SYRUP 8.8 MG/5 ML CUP TUBE SCH ×2 (09:00→21:18)
[2016-02-13] MEDS: METOPROLOL TARTRATE 50 MG TAB GT SCH ×3 (09:00→16:52)
[2016-02-13] MEDS: levETIRAcetam 500 MG/5 ML UDC TUBE SCH ×2 (09:00→21:17)
[2016-02-13] MEDS: RESP: IPRATROPIUM 0.5 MG/2.5 ML NEB NEB SCH ×3 (09:19→19:29)
--- NOTE | 2016-02-13 10:39 | HHI.PR ---
Subjective Remarks No acute events overnight. PEG tube exchange at the bedside by GI, functioning well. Family concerned about some blood tinge secretions around the trach. Repeat X- ray with no new changes, Trach in satisfactory position. Objective Vitals Vital Signs Date Time Temp Pulse Resp B/P Pulse Ox O2 Delivery O2 Flow Rate FiO2 02/13/16 08:33 98.3 99 20 135/79 98 02/13/16 08:22 T-Piece 5.00 28 Humidified 02/13/16 08:21 100 02/13/16 04:00 98.3 99 18 128/79 95 02/13/16 01:00 98.5 80 20 135/72 97 02/12/16 21:00 T-Piece 5.00 28 Humidified 02/12/16 20:00 99.0 89 20 143/85 97 02/12/16 19:00 81 02/12/16 16:00 97.8 86 18 142/85 95 02/12/16 12:00 96.2 83 18 120/75 98 I/O 02/12/16 02/12/16 02/12/16 02/13/16 02/13/16 02/13/16 06:59 14:59 22:59 06:59 14:59 22:59 Intake Total 800 ml 0 ml Output Total 1800 ml 1200 ml 950 ml Balance -1800 ml -1200 ml 800 ml -950 ml 0 ml IV Total 0 ml Other 800 ml Output Urine Total 1800 ml 1200 ml 950 ml Bladder Scan Volume Amount 392 ml # Bowel Movements 1 2 Objective Remarks GENERAL: Nonverbal and in no acute distress. Trach in place SKIN: Warm and dry. CARDIOVASCULAR: Regular rate and rhythm without murmurs, gallops, or rubs. RESPIRATORY: Diffuse coarse breath sounds. Breath sounds equal and clear to auscultation anteriorly GASTROINTESTINAL: Abdomen soft, non-tender, nondistended. PEG tube in place MUSCULOSKELETAL: No cyanosis, or edema. Neuro: Non verbal, non interactive. Eyes open. 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 Significant residual cognitive deficit. Non verbal. Continue Keppra and Coumadin- Palliative care following. Monitor on Keppra - Continue Nepro at 55 cc/hr per dietitian recommendations. GI: PEG tube is clogged. Reconsult GI for tube PEG replacement. Respiratory failure: Patient is status post trach Secondary to CVA. Continue pulmonary toilet and neb treatments as needed.Pulmonary following. - Obtain [facility]x x-ray to ensure trach is in place. - Blood-tinged secretion. Trach care per pulmonology. Continue to monitor A-fib: continue Lopressor, warfarin with INR/PT monitoring. Echocardiogram completed in November shows preserved EF UTI: Urine culture growing Klebsiella. Patient was started on Rocephin. Continue completed treatment with Rocephin. Coccyx pressure ulcer: Plastic surgery has been consulted to consider debridement. Follow wound care recs, encourage frequent turning Non-Hodgkin lymphoma s/p brain biopsy on December 13, by Neurosurgery, Dr. Marin - Pathology consistent with acute infarct without evidence of lymphoma Seen by Oncology, Dr. Whyte, who has signed off for current admission as there are no active oncology issues DM: continue Levemir with sliding scale- monitor and adjust the regimen as needed. Discharge Planning SSI pending. Case management following Jw Bah MD Feb 13, 2016 10:39
[2016-02-13 10:50] LABS: HEMATOCRIT 35.6 % (39.0-51.0); MEAN CELL VOLUME 80.4 FL (80.0-100.0); MEAN CORPUSCULAR HEMOGLOBIN 25.2 PG (27.0-34.0); MEAN CORPUSCULAR HGB CONC 31.4 % (32.0-36.0); PLATELET COUNT 233 TH/MM3 (150-450); RED BLOOD COUNT 4.43 MIL/MM3 (4.50-5.90); RED CELL DISTRIBUTION WIDTH 17.1 % (11.6-17.2); REVIEW FLAG FINAL; WHITE BLOOD COUNT 4.7 TH/MM3 (4.0-11.0)
[2016-02-13 11:10] LABS: BICARBONATE 25.9 MEQ/L (21.0-32.0); POTASSIUM 3.8 MEQ/L (3.5-5.1)
[2016-02-13 12:04] LABS: INTERNATIONAL NORMALIZED RATIO 2.2 RATIO; PROTHROMBIN TIME - PATIENT 24.2 SEC (9.8-11.4)
--- NOTE | 2016-02-13 13:17 | HHI.HCPN ---
Reason for visit a. To assist with evaluation and management of symptoms including: dyspnea, encephalopathy, depression b. To assist medical decision maker(s) with: better understanding of current medical conditions; weighing benefits/burdens of medical treatment options; making medical treatment decisions. Subjective/Interval History Pt on my visit was alert. Able to follow commands, but still not consistent with answers for questions. When I ask him if the sonido was blue, not able to consistently look up for yes, or look down for no. He grimaces at times. Pt feeding tube was changed recently, Lactinex d/c. WBC is stable, bmp was pending on my visit. Addressed questions from patient: =Leanne had questions concerning if lactinex could be done in liquid, form? Reveiewed with family as peg was just changed, probably be prudent to wait a few days before starting something new, as lactinex tabs was suspected to be the cause, but at the same time it may not be. = they say trach at times have some bleeding? No gross profuse bleeding at this time. == Wonder if plastics will come to see pt? ==Ask if speech thearpy can come to work with pt, as family feel pt starting to get some baseline facial movement. Will f/u with attending. == Family ask if an antidepressant could be started? Amenable to SSRI or something like celexa. History brought forward from initial consult by Rita MOCTEZUMA on 01/10/16: This 59-year-old patient was admitted on 12/21/15 via the ED for facial drooping. ED physician notes that patient and patients are poor historians, EMS reported the could not provide good timelines to them. Patient also reported headache, difficulty ambulating. He had known history of recent findings of mass in the brain. During ED course had deterioration of clinical condition and able to protect his airway, unable to follow commands patient was intubated and CT brain obtained. He was admitted for further evaluation and management to the ICU. Preparation Center Coordinator was consulted and following patient. Pathology on recent brain biopsy (5/26) still pending. CLINICAL/HOSPITAL COURSE: * CT brain= no focal or acute intracranial hemorrhage. New area decreased density in left occipital lobe suggestive of recent nonhemorrhagic infarct, decreased density in previously noted right occipital lobe has increased in size * Brain MRI = new area of restricted diffusion within left occipital lobe suggesting acute infarct. Interval enlargement of the area of restricted diffusion within right occipital lobe suggesting probable extension of right occipital and started on. Underlying enhancement of right occipital lobe is slightly worse than the previous exam and nonspecific. Biopsy has been performed and results are pending. Tiny focal area of restricted diffusion within right cerebellar hemisphere consistent with probable acute/subacute lacunar infarct. Signal abnormality in the SWI sequence within the right occipital lobe suggesting some hemorrhage in biopsy bed. No midline shift or extra-axial fluid collections. * CXR= no acute cardiopulmonary disease * -Neurology consulted, ordered MRA to look for vertebrobasilar stenosis, echo done last admission notes normal EF with normal valves and normal left atrial size. EEG also ordered. MR venogram ordered. EEG= abnormal study consistent with her encephalopathy. MRV indicated basilar occlusion; neurology notes discussion with family regarding chemical code only, also notes discussion regarding risks associated with the anticoagulates, was discussed with radiologist/INR recommended not helpful to extract basilar clot as this could result in patient's . It was felt the colin was infarcted. Further neurology notes "he could be locked in", is acting as if colin is infarcted. * Oncology known to patient also consulted for non-Hodgkin's lymphoma: Dr Whyte documents that there was no evidence of residual or recurrent disease on CT scans of chest, abdomen, pelvis done in October and November of this year. Pathology was still pending, had been sent to [facility] for second opinion. No acute oncology interventions recommended at that time, will follow. * 12/23 - 12/25 febrile. CPAP trials. Remains on vent off of sedation. Withdrawing to pain. Repeat brain MRI= evolving brainstem stroke. Neurology notes extensive discussion with family, notes discussion the patient is locked in but fully aware, family would like to see help patient does over the next 3 months. 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 Biopsy brain lesion appears consistent with acute infarct no lymphoma. Family desires ongoing aggressive measures, will proceed with tracheostomy. Sputum culture positive sensitive Klebsiella. * 01/01 tracheostomy, PEG tube placement * 01/04 trach collar trials, alternating with T piece. Low-grade fever 100.5. CXR = mild bibasilar atelectasis. Neuro: Spontaneously opening eyes, looking up / down, directionally to commands. * 01/07 still "locked in " , transferred off ICU to regular floor. * 01/08 pulmonology consulted-not CXR clear no evidence of pulmonary infection. He may have some underlying COPD recommends continued aerosol treatments. Further notes long discussion with family at bedside regarding tracheostomy, long-term use of trach until patient able to protect his airway, no further recommendations. Palliative care consulted to assist with clarification of goals of treatment. Family/friend interactions Long family meeting answering pt's families question with palliative social worker clinical. Disccused challenges ahead of pt, and that problems with peg tube or trach can be a common occurance. Advance Directives Living Will: Never completed Health Care Surrogate: Never completed Objective Vital Signs Date Time Temp Pulse Resp B/P Pulse Ox O2 Delivery O2 Flow Rate FiO2 02/13/16 12:33 97.4 104 20 120/75 100 02/13/16 08:33 98.3 99 20 135/79 98 02/13/16 08:22 T-Piece 5.00 28 Humidified 02/13/16 08:21 100 02/13/16 04:00 98.3 99 18 128/79 95 02/13/16 01:00 98.5 80 20 135/72 97 02/12/16 21:00 T-Piece 5.00 28 Humidified 02/12/16 20:00 99.0 89 20 143/85 97 02/12/16 19:00 81 02/12/16 16:00 97.8 86 18 142/85 95 Intake & Output 02/13/16 02/13/16 07:00 19:00 Intake Total 0 ml Output Total 950 ml Balance -950 ml 0 ml IV Total 0 ml Output Urine Total 950 ml Bladder Scan Volume Amount 392 ml # Bowel Movements 2 Physical Exam CONSTITUTIONAL/GENERAL: This is an adequately nourished patient,asleep, no apparent distress TUBES/LINES/DRAINS: PIV left upper extremity, Arevalo catheter, PEG tube, tracheostomy, SCDs, heel protection boots SKIN: No jaundice, rashes, or lesions.No wounds seen anteriorly. Skin temperature appropriate. Not diaphoretic. EYES: eyes closed, sleeping CARDIOVASCULAR: Regular rate and rhythm without murmurs. No JVD. Peripheral pulses symmetric. No peripheral edema. RESPIRATORY/CHEST: Symmetric, unlabored respirations. T piece, 28% FiO2. Course rhonchi throughout. Breath sounds equal bilaterally. GASTROINTESTINAL: Abdomen soft, non-tender, nondistended. No palpable masses. Bowel sounds normoactive.TF infusing to PEG MUSCULOSKELETAL: Extremities without clubbing, cyanosis, or edema. No joint effusion noted. No mottling or clubbing. NEUROLOGICAL: Asleep during my exam, does not arouse to stimuli. PSYCHIATRIC: Difficult to fully assess due to clinical condition. no apparent hallucinations or other psychotic thought process. Diagnostic Tests Laboratory Laboratory Tests Test 02/11/16 02/12/16 02/13/16 02/13/16 05:48 07:30 09:50 11:41 Prothrombin Time 21.7 SEC 21.5 SEC 24.2 SEC (9.8-11.4) (9.8-11.4) (9.8-11.4) Prothromb Time International 2.0 RATIO 2.0 RATIO 2.2 RATIO Ratio White Blood Count 4.7 TH/MM3 (4.0-11.0) Red Blood Count 4.43 MIL/MM3 (4.50-5.90) Hemoglobin 11.2 GM/DL (13.0-17.0) Hematocrit 35.6 % (39.0-51.0) Mean Corpuscular Volume 80.4 FL (80.0-100.0) Mean Corpuscular Hemoglobin 25.2 PG (27.0-34.0) Mean Corpuscular Hemoglobin 31.4 % Concent (32.0-36.0) Red Cell Distribution Width 17.1 % (11.6-17.2) Platelet Count 233 TH/MM3 (150-450) Mean Platelet Volume 8.6 FL (7.0-11.0) Sodium Level 136 MEQ/L (136-145) Potassium Level 3.8 MEQ/L (3.5-5.1) Chloride Level 102 MEQ/L (98-107) Carbon Dioxide Level 25.9 MEQ/L (21.0-32.0) Anion Gap 8 MEQ/L (5-15) Blood Urea Nitrogen 13 MG/DL (7-18) Creatinine 0.52 MG/DL (0.60-1.30) Estimat Glomerular Filtration 162 ML/MIN Rate (>89) Random Glucose 127 MG/DL (74-106) Calcium Level 9.0 MG/DL (8.5-10.1) Result Diagram: 02/13/16 0950 02/13/16 0950 Microbiology Last Impressions Chest X-Ray 02/12/16 0000 Signed Impressions: Service Date/Time: Friday, February 12, 2016 13:27 - CONCLUSION: Subsegmental basilar atelectasis similar to prior study. No consolidation and no effusion. Tracheostomy in satisfactory position. 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 Anterior circulation remains intact. Mikie Vargas MD Head CT 01/16/16 0000 Signed Impressions: Service Date/Time: Saturday, January 16, 2016 10:51 - CONCLUSION: No extensive low density in the brainstem colin more prominent in the right the left extending into the right middle cerebellar peduncle consistent with brainstem infarct nonhemorrhagic acute Wellington West MD Brain MRI 01/16/16 0000 Signed Impressions: Service Date/Time: Saturday, January 16, 2016 20:05 - CONCLUSION: Recent infarctions in both occipital lobes and left cerebellum. High flair abnormality within the colin but greater on the right where there is enhancement. This is likely related to progressive acute ischemic changes. Mikie Vargas MD Abdomen X-Ray 01/14/16 0000 Signed Impressions: Service Date/Time: Thursday, January 14, 2016 10:19 - CONCLUSION: Moderate stool; otherwise, negative. 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 No evidence of carotid stenosis. Glen Zamora MD Head/Brain Mag Res Venography 12/22/15 0000 Signed Impressions: Service Date/Time: Tuesday, December 22, 2015 09:22 - CONCLUSION: Normal MRV. Jonel Jones Jr., MD Procedures * 01/01 tracheostomy, PEG tube placement . 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; EEG indicates encephalopathy, neuro following patient felt to be in a "locked-in "state (2) Non-Hodgkin lymphoma Comment: -In remission status post chemotherapy completed May 2015 (3) Acute respiratory failure Comment: Pulmonology following, medical management (4) A-fib (5) Status post stereotactic brain biopsy (6) Brain lesion Comment: Status post biopsy November 2015; pathology consistent with acute infarct without evidence of lymphoma (7) DM (diabetes mellitus) Symptom Scale: (1) Dysphagia Comment: Status post significant CVA, has had PEG tube placed (2) Dyspnea Comment: Respiratory failure secondary to CVA, status post tracheostomy, pulmonary following (3) Encephalopathy Comment: Significant CVA, "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 Albumin 2.4. (5) Depression Comment: At risk for related to "locked in status", communication difficulties , situational, but would likely benefit from anti-depressant Pertinent Non-Medical Issues * Psychosocial:Mr. Flores is originally from [place]. He moved to the around 35 years ago, first to [place] and later to [place]. He is not legally but remains with his ex-, Leanne. They have been together for 31+ years and have three children together: Leanne, Gerald, and Ginny. Gerald is currently in [facility] for work. Mr. Flores has 2 brothers and 7 sisters. His father is of old age. His mother is alive and was living with the patient. Greatly enjoys his family. Retired. 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 * Spiritual: * Legal:Patient due to clinical condition is currently unable to participate in medical decision making. Not clear if or when he will regain this ability. Family does not believe he has completed advance directives. per [place] Statutes, medical proxy decision making would fall to the majority of adult children, as Mr. Flores is not legally . * Ethical issues impacting care: Important Contacts Leanne, daughter: [phone] Ginny, daughter: [phone] Gerald, son: currently in [facility] for work but has communication with his siblings. Leanne, ex-: [phone] Prognosis This patient has had 20 day hospital course thus far, admitted on 62 for a large brainstem infarct, bilateral occipital infarcts. He has subsequently had ongoing encephalopathy and severe communication limitations, neurology feels he is in a "locked-in "state. He has suffered from respiratory failure likely secondary to significant CVA. Appears he should be able to survive this acute hospitalization, however not clear when or if he will regain ability to communicate, based on current assessments patient will require long-term care placement. He will remain high risk for potential competition/setbacks due to immobile status including infections, DVT etc. . Code Status: Full Code Plan * GOALS: Very aggressive. See family conference component on initial consult for additional detail. Meeting In summary: Initially they had many questions regarding admission and biopsy which occurred in November, they ask about differentials and decision making leading to the biopsy, and have many concerns regarding that clinical course--advised that I could not speak to any of those questions or processes as I was not involved in his care and decision making at that time, recommend them to direct those specific questions to those initial providers which provided those services. Otherwise review of conditions, goals as detailed in "issues discussed". Family expresses that Mr. Flores did remarkably well following his chemotherapy for lymphoma just last year, and that he had been doing fine until recent issue in November. They endorsed that he is a fighter, that he is a very optimistic person, and that they are certain he is "in there "and would want to continue fighting for whatever recovery he might have." They have many questions regarding rehabilitation services and placement as well as financial coverage for these services, advised that case management could assist them with the various applications which already in process, but that any placement would depend on funding, or alternatively coleman placement which is up to any individual institution. They would like to maximize PT/OT/ST ongoing while here in the hospital. They also request courtesy consult of to follow him for pulmonary as he is known to the family through their baptism. * 02/08/16 Goals remain aggressive. Medical update provided to ex- Leanne via telephone. All questions answered. She would like additional update tomorrow after plastics/Gen. surgery has evaluated patient wound. Medical updates only to be provided to decision makers which are the patient's adult children (Leanne), as well as the patient ex- (Leanne ) who is involved with patient and children include in decision-making. Palliative will continue to see periodically to provide support and medical updates to family, per their request. * Anxiety- may consider adding an SSRI or an antidepresant such as Celexa. ( family requests) * Family inquires when plastic surgery will come to evaluate wound? * Family inquires if speech therapy can come and at least get a baseline, wondering if family could be there when speech therapy comes? * CODE STATUSfull code * Symptoms: == Dysphagia--Status post significant CVA, has had PEG tube placed == Dyspnea --Respiratory failure secondary to CVA, status post tracheostomy, pulmonary following; currently no apparent distress/ CXR bibasilar atelectasis, most recent CXR 02/06, unchanged. == Encephalopathy--Significant CVA, "locked-in" state; follow-up MRI with no significant changes; family endorses patient continues to have limited communication via [place] and eye motion == Malnutrition--Status post PEG tube placement. tolerating TF; having bowel movements == depression/anxiety -- At risk for related to "locked in status", communication difficulties, situational, but would likely benefit from anti- depressant. Family reports tearful at times when they talk to him. d/w medical attending, celexa 20mg QD had been added-- d/c per family request. Family indicates has not seen any further tearful episodes * Palliative care will continue to follow during hospital course as condition evolves, to assist patient/decision-maker with understanding of medical conditions, weighing benefits/burdens of treatment options, for clarification of goals of treatment. Additionally will assist with any symptoms of palliative concern . Addendum d/w with attending and family concerns above. Considered celexa, but as pt have trepidation with feeding tube with lactinex, ordered paxil liquid form. Time Spent Total Floor Time (mins): 45 Face to Face Time (mins): 35 >50% Counseling/Coord of Care: No Attestation To help prompt me to consider important information that might be impacting today's encounter and assessment, information from prior notes written by myself or my colleagues may have been "brought forward" into today's note. My signature on this note, however, is an attestation that I personally performed the exam, history, and/or decision-making noted today, and, unless otherwise indicated, the interactions with patient, family, and staff as well as the review of records all occurred today. I also attest that the listed assessment and stated plan reflect my best clinical judgment today based on the combination of historical information, prior notes, and today's exam/ interactions. When time spent is documented, it refers only to time spent today by the signer, or if indicated, combined time spent today by collaborating physician/nurse practitioner. . Abhishek Avilez M.D. Feb 13, 2016 13:17
[2016-02-13] MEDS: WARFARIN SOD 4 MG TAB PO SCH (16:52)
[2016-02-13] MEDS: INSULIN DETEMIR 100 UNITS/ML VIAL SQ SCH (21:18)
[2016-02-14] VITALS (9 sets, daily range): BP systolic 123–170; BP diastolic 77–90; PULSE 82–114; RESP 18–22; TEMP 96–98.7; O2SAT 95–100
[2016-02-14] MEDS: FREE WATER TUBE SCH ×6 (04:00→20:00)
[2016-02-14] MEDS: ACETIC ACID 0.25% SOLN 1000 ML IRR BTL IRRIGATION SCH ×3 (05:54→20:53)
[2016-02-14] MEDS: INSULIN ASPART SUPPLEMENTAL SCALE SQ SCH ×4 (05:56→18:00)
[2016-02-14 08:00] LABS: INTERNATIONAL NORMALIZED RATIO 2.3 RATIO; PROTHROMBIN TIME - PATIENT 25.5 SEC (9.8-11.4)
[2016-02-14] MEDS: RESP: IPRATROPIUM 0.5 MG/2.5 ML NEB NEB SCH ×2 (08:23→19:56)
[2016-02-14] MEDS: RANITIDINE HCL SYRUP 150 MG/10 ML UDC PO SCH (08:58)
[2016-02-14] MEDS: NYSTATIN 100,000 U/GM PWD 15 GM BTL TOPICAL SCH ×2 (08:58→20:52)
[2016-02-14] MEDS: levETIRAcetam 500 MG/5 ML UDC TUBE SCH ×2 (08:59→20:52)
[2016-02-14] MEDS: SENNOSIDES SYRUP 8.8 MG/5 ML CUP TUBE SCH ×2 (08:59→20:52)
[2016-02-14] MEDS: METOPROLOL TARTRATE 50 MG TAB GT SCH ×3 (09:00→18:39)
--- NOTE | 2016-02-14 11:20 | HHI.PR ---
Subjective Remarks No acute events overnight. Family requesting speech therapy, inquired about Plastic consults. They would like to try antidepressants as he has been having bouts of tears. Discussed with Palliative care Dr. Avilez. Objective Vitals Vital Signs Date Time Temp Pulse Resp B/P Pulse Ox O2 Delivery O2 Flow Rate FiO2 02/14/16 08:45 96.0 114 20 133/90 95 02/14/16 08:23 100 T-piece 02/14/16 04:47 98.7 111 20 163/85 100 02/14/16 00:05 97.8 97 20 148/87 100 02/13/16 20:32 96.9 86 20 125/73 99 02/13/16 19:31 98 T-piece 02/13/16 19:31 98 T-piece 02/13/16 19:00 83 02/13/16 16:47 98.9 84 20 127/75 98 02/13/16 14:49 100 T-piece 02/13/16 14:49 100 T-piece 02/13/16 12:33 97.4 104 20 120/75 100 I/O 02/13/16 02/13/16 02/13/16 02/14/16 02/14/16 02/14/16 07:00 15:00 23:00 07:00 15:00 23:00 Intake Total 785 ml Output Total 950 ml 350 ml 600 ml 400 ml Balance -950 ml 435 ml -600 ml -400 ml IV Total 0 ml Tube Feeding 385 ml Other 400 ml Output Urine Total 950 ml 350 ml 600 ml 400 ml Bladder Scan Volume Amount 392 ml # Bowel Movements 2 Result Diagram: 02/13/16 0950 02/13/16 0950 Objective Remarks GENERAL: Nonverbal and in no acute distress. Trach in place SKIN: Warm and dry. CARDIOVASCULAR: Regular rate and rhythm without murmurs, gallops, or rubs. RESPIRATORY: Diffuse coarse breath sounds. Breath sounds equal and clear to auscultation anteriorly GASTROINTESTINAL: Abdomen soft, non-tender, nondistended. PEG tube in place MUSCULOSKELETAL: No cyanosis, or edema. Neuro: Non verbal, non interactive. Eyes open. 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 Significant residual cognitive deficit. Non verbal. Patient appear to be in a locked in state. Continue Keppra and Coumadin- Palliative care following. Monitor on Keppra - Continue Nepro at 55 cc/hr per dietitian recommendations. GI/Nutrition: Had some issues with PEG tube clogged presumable from Lactinex. This was exchanged by GI at bedside and Lactinex was discontinued. Respiratory failure: Patient is status post trach Secondary to CVA. Continue pulmonary toilet and neb treatments as needed. Pulmonary following. - Occasional Blood-tinged secretion around the trach. Trach care per pulmonology. Continue to monitor Depression: Discussed with palliative care Dr. Avilez. He will start Antidepressants. A-fib: continue Lopressor, warfarin with INR/PT monitoring. Echocardiogram completed in November shows preserved EF UTI: Urine culture growing Klebsiella. Patient was started on Rocephin. Continue completed treatment with Rocephin. Coccyx pressure ulcer: Plastic surgery has been consulted to consider debridement. Follow wound care recs, encourage frequent turning Non-Hodgkin lymphoma s/p brain biopsy on December 13, by Neurosurgery, Dr. Marin - Pathology consistent with acute infarct without evidence of lymphoma Seen by Oncology, Dr. Whyte, who has signed off for current admission as there are no active oncology issues DM: continue Levemir with sliding scale- monitor and adjust the regimen as needed. Discharge Planning SSI pending. Case management following. Family's goal is very aggressive. Palliative care following. Jw Bha MD Feb 14, 2016 11:20
[2016-02-14] MEDS: WARFARIN SOD 4 MG TAB PO SCH (15:56)
--- NOTE | 2016-02-14 19:46 | MB ---
cc: NAWAF KIRBY MD DATE OF CONSULTATION 02/14/2016 IDENTIFICATION Vilma Flores is a 60-year-old male. REASON FOR CONSULTATION Coccygeal pressure sore. HISTORY OF PRESENT ILLNESS The patient was admitted to the hospital on December 20 with a history of prior stroke and brain mass with rapidly worsening neurological condition. He was ultimately determined to have a cerebrovascular accident with basilar artery thrombosis and has become nonverbal in a locked in state. He is receiving multiple disciplinary medical care and palliative care has been consulted. He has developed a pressure sore in the sacral region and plastic surgery is consulted for an opinion. The patient's chart medications are reviewed. He has no past history of pressure sores. PHYSICAL EXAMINATION On examination the patient is nonresponsive. He is examined at the bedside with the nurse and he is found to have a 2-3 cm circular full-thickness wound in the central sacral area. There is no surrounding cellulitis or infection. It is undermined superiorly approximately 2-3 cm and there is some necrotic fat at the surrounding edges. There is no underlying abscess present. Unable to determine tenderness. No other skin lesions are seen. The patient's blood work is examined. He is on PEG tube feedings. IMPRESSION I would recommend discontinuing his current Silver based dressings and beginning twice daily Iodoform gauze packing into the undermined areas in the base of the wound. This will initially help with the surrounding areas of necrosis. The patient may benefit from minor debridement at a later date when he is more medically stable. In the meantime this regimen will reduce risk of infection and will continue to debride the wound through the action of the dressing changes. Discussed with nurse and family and questions were answered. Thank you for consultation. Nawaf Kirby MD MS/EO /7:07 PM /7:27 PM
[2016-02-14] MEDS: INSULIN DETEMIR 100 UNITS/ML VIAL SQ SCH (20:52)
[2016-02-15] VITALS (9 sets, daily range): BP systolic 121–141; BP diastolic 62–85; PULSE 84–102; RESP 19–23; TEMP 96.1–98.9; O2SAT 97–100
[2016-02-15] MEDS: FREE WATER TUBE SCH ×7 (03:59→23:58)
[2016-02-15] MEDS: INSULIN ASPART SUPPLEMENTAL SCALE SQ SCH ×4 (05:43→16:29)
[2016-02-15] MEDS: ACETIC ACID 0.25% SOLN 1000 ML IRR BTL IRRIGATION SCH ×3 (05:44→20:58)
[2016-02-15] MEDS: RESP: IPRATROPIUM 0.5 MG/2.5 ML NEB NEB SCH ×3 (08:29→19:55)
[2016-02-15 08:59] LABS: INTERNATIONAL NORMALIZED RATIO 2.6 RATIO; PROTHROMBIN TIME - PATIENT 28.4 SEC (9.8-11.4)
[2016-02-15] MEDS: NYSTATIN 100,000 U/GM PWD 15 GM BTL TOPICAL SCH ×2 (09:00→20:53)
[2016-02-15] MEDS: RANITIDINE HCL SYRUP 150 MG/10 ML UDC PO SCH (09:09)
[2016-02-15] MEDS: SENNOSIDES SYRUP 8.8 MG/5 ML CUP TUBE SCH ×2 (09:09→20:46)
[2016-02-15] MEDS: levETIRAcetam 500 MG/5 ML UDC TUBE SCH ×2 (09:09→20:46)
[2016-02-15] MEDS: METOPROLOL TARTRATE 50 MG TAB GT SCH ×3 (09:10→16:39)
--- NOTE | 2016-02-15 13:30 | HHI.PR ---
Subjective Remarks No acute overnight events. Patient cannot provide ROS due to CVA. Objective Vitals Vital Signs Date Time Temp Pulse Resp B/P Pulse Ox O2 Delivery O2 Flow Rate FiO2 02/15/16 12:41 91 02/15/16 12:00 96.1 93 20 122/77 100 02/15/16 09:21 98 T-Piece 6.00 02/15/16 08:33 97 T-piece 02/15/16 08:33 97 T-piece 02/15/16 07:52 98.4 96 23 121/73 100 02/15/16 04:19 97.5 102 19 141/85 99 02/15/16 00:18 98.9 95 19 132/78 98 02/14/16 20:23 97.1 86 18 170/77 98 02/14/16 19:56 98 T-piece 6.00 02/14/16 19:56 98 T-piece 6.00 02/14/16 16:27 97.9 82 22 123/78 99 I/O 02/14/16 02/14/16 02/14/16 02/15/16 02/15/16 02/15/16 07:00 15:00 23:00 07:00 15:00 23:00 Intake Total 2100 ml 400 ml Output Total 400 ml 400 ml 600 ml Balance -400 ml -400 ml 1500 ml 400 ml Tube Feeding 500 ml Tube Irrigant 1600 ml Other 400 ml Output Urine Total 400 ml 400 ml 600 ml # Bowel Movements 1 Result Diagram: 02/13/16 0950 02/13/16 0950 Imaging Last Impressions Chest X-Ray 02/12/16 0000 Signed Impressions: Service Date/Time: Friday, February 12, 2016 13:27 - CONCLUSION: Subsegmental basilar atelectasis similar to prior study. No consolidation and no effusion. Tracheostomy in satisfactory position. 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 Anterior circulation remains intact. Mikie Vargas MD Head CT 01/16/16 0000 Signed Impressions: Service Date/Time: Saturday, January 16, 2016 10:51 - CONCLUSION: No extensive low density in the brainstem colin more prominent in the right the left extending into the right middle cerebellar peduncle consistent with brainstem infarct nonhemorrhagic acute Wellington West MD Brain MRI 01/16/16 0000 Signed Impressions: Service Date/Time: Saturday, January 16, 2016 20:05 - CONCLUSION: Recent infarctions in both occipital lobes and left cerebellum. High flair abnormality within the colin but greater on the right where there is enhancement. This is likely related to progressive acute ischemic changes. Mikie Vargas MD Abdomen X-Ray 01/14/16 0000 Signed Impressions: Service Date/Time: Thursday, January 14, 2016 10:19 - CONCLUSION: Moderate stool; otherwise, negative. 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 No evidence of carotid stenosis. Glen Zamora MD Head/Brain Mag Res Venography 12/22/15 0000 Signed Impressions: Service Date/Time: Tuesday, December 22, 2015 09:22 - CONCLUSION: Normal MRV. Jonel Jones Jr., MD Objective Remarks GENERAL: Well-nourished, well-developed patient in no apparent distress. SKIN: Warm and dry. HEAD: Atraumatic. Normocephalic. EYES: Pupils equal and round. No scleral icterus. No injection or drainage. ENT: No nasal bleeding or discharge. Mucous membranes pink and moist. NECK: Trachea midline. No JVD. Tracheostomy present CARDIOVASCULAR: Irregular rate and rhythm. RESPIRATORY: No accessory muscle use. Clear to auscultation. Breath sounds equal bilaterally. GASTROINTESTINAL: Abdomen soft, non-tender, nondistended. Hepatic and splenic margins not palpable. MUSCULOSKELETAL: Extremities without clubbing, cyanosis, or edema. No obvious deformities. NEUROLOGICAL: Awake and alert. Patient does not move upper and lower extremities. Unable to speak. 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 Significant residual cognitive deficit. Non verbal. 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 Continue Keppra and Coumadin- Palliative care following. Monitor on Keppra. INR is 2.6. - Continue Nepro at 55 cc/hr per dietitian recommendations. GI/Nutrition: Had some issues with PEG tube clogged presumable from Lactinex. This was exchanged by GI at bedside and Lactinex was discontinued. Respiratory failure: Secondary to CVA. Patient is status post tracheostomy. Continue pulmonary toilet and neb treatments as needed. Pulmonary following. - Occasional Blood-tinged secretion around the trach. Trach care per pulmonology. Continue to monitor Depression: Discussed with palliative care Dr. Avilez. Patient started on antidepressives. A-fib: continue Lopressor, warfarin with INR/PT monitoring. Echocardiogram completed in November shows preserved EF. INR is 2.6 today. UTI: Urine culture grew Klebsiella. Patient completed ceftriaxone course. Coccyx pressure ulcer: Plastic surgery was reconsulted. Plastic surgery provided recommendations. History of Non-Hodgkin lymphoma: s/p brain biopsy on December 13, by Neurosurgery, Dr. Marin - Pathology consistent with acute infarct without evidence of lymphoma Seen by Oncology, Dr. Whyte, who has signed off for current admission as there are no active oncology issues DM: Hemoglobin A1c is 7.0. Continue Levemir with sliding scale insulin- monitor and adjust the regimen as needed. DVT prophylaxis: Full anticoagulation with Coumadin. INR is 2.6. Problem Qualifiers (1) DM (diabetes mellitus): Qualified Code: E11.9 - Type 2 diabetes mellitus without complications Uziel Umaña MD Feb 15, 2016 13:30
[2016-02-15] MEDS: ACETAMINOPHEN/HYDROcodone 325 MG/5 MG TAB PO PRN (14:30)
[2016-02-15] MEDS: WARFARIN SOD 3 MG TAB PO SCH (16:27)
[2016-02-15] MEDS: INSULIN DETEMIR 100 UNITS/ML VIAL SQ SCH (20:46)
[2016-02-16] VITALS (9 sets, daily range): BP systolic 113–171; BP diastolic 67–90; PULSE 80–99; RESP 16–20; TEMP 95.7–97.8; O2SAT 89–100
[2016-02-16] MEDS: ACETIC ACID 0.25% SOLN 1000 ML IRR BTL IRRIGATION SCH ×3 (05:26→20:12)
[2016-02-16] MEDS: FREE WATER TUBE SCH ×6 (05:26→23:56)
[2016-02-16] MEDS: INSULIN ASPART SUPPLEMENTAL SCALE SQ SCH ×5 (05:30→23:56)
[2016-02-16] MEDS: RESP: IPRATROPIUM 0.5 MG/2.5 ML NEB NEB SCH ×3 (08:49→19:39)
[2016-02-16 08:59] LABS: INTERNATIONAL NORMALIZED RATIO 2.5 RATIO; PROTHROMBIN TIME - PATIENT 27.3 SEC (9.8-11.4)
[2016-02-16] MEDS: PARoxetine HCL SUSP 20 MG/10 ML UDC PEG SCH (09:00)
[2016-02-16] MEDS: RANITIDINE HCL SYRUP 150 MG/10 ML UDC PO SCH (09:00)
[2016-02-16] MEDS: levETIRAcetam 500 MG/5 ML UDC TUBE SCH ×2 (09:00→20:10)
[2016-02-16] MEDS: SENNOSIDES SYRUP 8.8 MG/5 ML CUP TUBE SCH ×2 (09:00→20:10)
[2016-02-16] MEDS: METOPROLOL TARTRATE 50 MG TAB GT SCH ×3 (09:01→17:50)
[2016-02-16] MEDS: NYSTATIN 100,000 U/GM PWD 15 GM BTL TOPICAL SCH ×2 (09:01→20:12)
--- NOTE | 2016-02-16 12:36 | HHI.PR ---
Subjective Remarks No acute overnight events per staff. Patient cannot provide ROS due to CVA. Objective Vitals Vital Signs Date Time Temp Pulse Resp B/P Pulse Ox O2 Delivery O2 Flow Rate FiO2 02/16/16 09:26 95 02/16/16 09:13 99 T-Piece 6.00 28 02/16/16 08:51 99 T-piece 6.00 28 02/16/16 08:00 97.3 96 16 129/70 89 02/16/16 04:15 97.8 97 19 113/76 97 02/16/16 00:31 97.2 89 19 130/78 98 02/15/16 21:02 97.0 88 19 125/62 99 02/15/16 19:55 100 T-piece 6.00 02/15/16 19:55 100 T-piece 6.00 02/15/16 16:00 98.6 84 19 122/70 100 02/15/16 12:41 91 I/O 02/15/16 02/15/16 02/15/16 02/16/16 02/16/16 02/16/16 07:00 15:00 23:00 07:00 15:00 23:00 Intake Total 2100 ml 800 ml 605 ml 400 ml Output Total 600 ml 1400 ml 1000 ml Balance 1500 ml -600 ml 605 ml -1000 ml 400 ml Tube Feeding 500 ml 605 ml Tube Irrigant 1600 ml Other 800 ml 400 ml Output Urine Total 600 ml 1400 ml 1000 ml # Bowel Movements 1 Result Diagram: 02/13/16 0950 02/13/16 0950 Imaging Last Impressions Chest X-Ray 02/12/16 0000 Signed Impressions: Service Date/Time: Friday, February 12, 2016 13:27 - CONCLUSION: Subsegmental basilar atelectasis similar to prior study. No consolidation and no effusion. Tracheostomy in satisfactory position. 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 Anterior circulation remains intact. Mikie Vargas MD Head CT 01/16/16 0000 Signed Impressions: Service Date/Time: Saturday, January 16, 2016 10:51 - CONCLUSION: No extensive low density in the brainstem colin more prominent in the right the left extending into the right middle cerebellar peduncle consistent with brainstem infarct nonhemorrhagic acute Wellington West MD Brain MRI 01/16/16 0000 Signed Impressions: Service Date/Time: Saturday, January 16, 2016 20:05 - CONCLUSION: Recent infarctions in both occipital lobes and left cerebellum. High flair abnormality within the colin but greater on the right where there is enhancement. This is likely related to progressive acute ischemic changes. Mikie Vargas MD Abdomen X-Ray 01/14/16 0000 Signed Impressions: Service Date/Time: Thursday, January 14, 2016 10:19 - CONCLUSION: Moderate stool; otherwise, negative. 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 No evidence of carotid stenosis. Glen Zamora MD Head/Brain Mag Res Venography 12/22/15 0000 Signed Impressions: Service Date/Time: Tuesday, December 22, 2015 09:22 - CONCLUSION: Normal MRV. Jonel Jones Jr., MD Objective Remarks GENERAL: Well-nourished, well-developed patient in no apparent distress. SKIN: Warm and dry. HEAD: Atraumatic. Normocephalic. EYES: Pupils equal and round. No scleral icterus. No injection or drainage. ENT: No nasal bleeding or discharge. Mucous membranes pink and moist. NECK: Trachea midline. No JVD. Tracheostomy present CARDIOVASCULAR: Irregular rate and rhythm. RESPIRATORY: No accessory muscle use. Clear to auscultation. Breath sounds equal bilaterally. GASTROINTESTINAL: Abdomen soft, non-tender, nondistended. Hepatic and splenic margins not palpable. MUSCULOSKELETAL: Extremities without clubbing, cyanosis, or edema. No obvious deformities. NEUROLOGICAL: Awake and alert. Patient does not move upper and lower extremities. Unable to speak. Did not respond to visual threat. 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 Significant residual cognitive deficit. Non verbal. 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 Continue Keppra and Coumadin- Palliative care following. Monitor on Keppra. INR is 2.5. - Continue Nepro at 55 cc/hr per dietitian recommendations. GI/Nutrition: Had some issues with PEG tube clogged presumable from Lactinex. This was exchanged by GI at bedside and Lactinex was discontinued. Nepro tube feedings as recommended by dietitian for sodium content. Respiratory failure: Secondary to CVA. Patient is status post tracheostomy. Continue pulmonary toilet and neb treatments as needed. Pulmonary following. - Occasional Blood-tinged secretion around the trach. Trach care per pulmonology. Continue to monitor Depression: Discussed with palliative care Dr. Avilez. Patient started on antidepressives. A-fib: continue Lopressor, warfarin with INR/PT monitoring. Echocardiogram completed in November shows preserved EF. INR is 2.6 today. UTI: Urine culture grew Klebsiella. Patient completed ceftriaxone course. We will exchanged Arevalo catheter as it has been going on since last changed. Coccyx pressure ulcer: Plastic surgery was reconsulted. Plastic surgery provided recommendations. History of Non-Hodgkin lymphoma: s/p brain biopsy on December 13, by Neurosurgery, Dr. Marin - Pathology consistent with acute infarct without evidence of lymphoma Seen by Oncology, Dr. Whyte, who has signed off for current admission as there are no active oncology issues DM: Hemoglobin A1c is 7.0. Continue Levemir with sliding scale insulin- monitor and adjust the regimen as needed. DVT prophylaxis: Full anticoagulation with Coumadin. INR is 2.5. Problem Qualifiers (1) DM (diabetes mellitus): Qualified Code: E11.9 - Type 2 diabetes mellitus without complications Uziel Umaña MD Feb 16, 2016 12:36
[2016-02-16] MEDS: WARFARIN SOD 3 MG TAB PO SCH (15:32)
[2016-02-16] MEDS: INSULIN DETEMIR 100 UNITS/ML VIAL SQ SCH (20:10)
[2016-02-17] VITALS (11 sets, daily range): BP systolic 109–159; BP diastolic 57–88; PULSE 78–99; RESP 16–20; TEMP 95.3–97.8; O2SAT 96–100
[2016-02-17] MEDS: FREE WATER TUBE SCH ×5 (05:07→20:00)
[2016-02-17] MEDS: ACETIC ACID 0.25% SOLN 1000 ML IRR BTL IRRIGATION SCH ×3 (05:07→21:05)
[2016-02-17] MEDS: INSULIN ASPART SUPPLEMENTAL SCALE SQ SCH ×3 (05:08→18:00)
[2016-02-17] MEDS: NYSTATIN 100,000 U/GM PWD 15 GM BTL TOPICAL SCH ×2 (08:02→20:51)
[2016-02-17] MEDS: RANITIDINE HCL SYRUP 150 MG/10 ML UDC PO SCH (08:02)
[2016-02-17] MEDS: levETIRAcetam 500 MG/5 ML UDC TUBE SCH ×2 (08:02→20:54)
[2016-02-17] MEDS: PARoxetine HCL SUSP 20 MG/10 ML UDC PEG SCH (08:02)
[2016-02-17] MEDS: RESP: IPRATROPIUM 0.5 MG/2.5 ML NEB NEB SCH ×3 (08:03→20:19)
[2016-02-17] MEDS: SENNOSIDES SYRUP 8.8 MG/5 ML CUP TUBE SCH ×2 (08:03→20:54)
[2016-02-17] MEDS: METOPROLOL TARTRATE 50 MG TAB GT SCH ×3 (08:14→18:15)
[2016-02-17 09:18] LABS: INTERNATIONAL NORMALIZED RATIO 2.3 RATIO; PROTHROMBIN TIME - PATIENT 25.5 SEC (9.8-11.4)
--- NOTE | 2016-02-17 10:48 | HHI.PR ---
Subjective Remarks afib Objective Vital Signs Date Time Temp Pulse Resp B/P Pulse Ox O2 Delivery O2 Flow Rate FiO2 02/17/16 08:21 98 02/17/16 08:15 100 T-Piece 5.00 28 Humidified 02/17/16 08:07 98 T-piece 5.00 28 02/17/16 08:07 100 T-piece 5.00 28 02/17/16 08:00 96.7 99 16 135/83 98 02/17/16 06:41 96 T-piece 6.00 02/17/16 06:41 96 T-piece 6.00 28 02/17/16 04:12 97.8 96 18 134/88 97 02/17/16 00:17 96.8 92 18 122/72 97 02/16/16 20:19 97.6 82 19 125/67 100 02/16/16 19:39 100 T-piece 6.00 28 02/16/16 19:39 100 T-piece 6.00 28 02/16/16 16:00 96.8 80 16 118/77 100 02/16/16 15:46 100 T-Piece 6.00 02/16/16 12:00 95.7 88 16 133/78 96 I/O 02/16/16 02/16/16 02/16/16 02/17/16 02/17/16 02/17/16 06:59 14:59 22:59 06:59 14:59 22:59 Intake Total 800 ml 1005 ml Output Total 1000 ml 1200 ml 800 ml Balance -1000 ml -400 ml 1005 ml -800 ml Tube Feeding 605 ml Other 800 ml 400 ml Output Urine Total 1000 ml 1200 ml 800 ml # Bowel Movements 2 Result Diagram: 02/13/1650 02/13/16 0950 Objective Remarks pupil = awake and blinks eyes to command eye see no movemnt below neck today and cannot stick out tongue Assessment and Plan Assessment and Plan mrv shows basilar occlusion and mri shows sign bilat occipital and some small r cbllr acute cva the colin is slightly hyperintense almost full thickness and looks like major pontine infarct however not as bright as we usually see with infarct he could have a penumbra effect in colin so could be recoverable or just needs time to change signal plan is to keep bp up recheck mri friday if more bright then family thinking of decisions no sedatives i rec chemical code only will consider we discussed and we will keep anticoag going for now and i told her risk of bleeding into upper brain with some blood signal in original cva i dw dr vick and nitin cancino and neither felt it would be helpful to try and extract basilar clot and could kill him they both felt the colin was infarcted he could be locked in he is acting as if colin is infarcted although slight chance it could be stunned/ penumbra neuro will follow over i will be back 12/25/15 i dw family at length and reviewed films with them no major change in brainstem brightness on mri inr 3.5 target 2-2.5 i think they would like to see how he does over the next 3 months and will probably go for trach if needed and peg he is locked in for the most part but full aware 12/26/15 inr 2.6 i dw son yest had some vertical eye movements to command monitor 12/27/15 locked in so he can hear all that is said family devoted and i expect peg+/-trach and they will see how he does next 6 months inr 2.4 doesnt always respond as will not awaken as quick as others 12/29/15 doing more with eyes locked in for trach and peg coumadin management per med team for that sq hep ok if need off coumadin for trach ------ 12/31/15 stable neuro for trach peg tues i dw daughter 01/04/16 asleep now sedation last two days with trach and peg could affect his neuro fxt will dw family needs coumadin restarted bp a little low try and keep >120/ if possible 01/26/16 STABLE NEURO LOCKED IN NO MAJOR CHANGE OK TO REHAB BY [place] ---- 02/17/16 locked in no major change inr good stable neuro Steven De Leon MD Feb 17, 2016 10:48
--- NOTE | 2016-02-17 12:42 | HHI.PR ---
Subjective Remarks No acute events overnight. Patient seen with his mother, sister, and brother-in- law at bedside. Patient unable to communicate. Family has no major concerns at this time. Objective Vitals Vital Signs Date Time Temp Pulse Resp B/P Pulse Ox O2 Delivery O2 Flow Rate FiO2 02/17/16 12:00 95.3 87 16 136/82 98 02/17/16 08:21 98 02/17/16 08:15 100 T-Piece 5.00 28 Humidified 02/17/16 08:07 98 T-piece 5.00 28 02/17/16 08:07 100 T-piece 5.00 28 02/17/16 08:00 96.7 99 16 135/83 98 02/17/16 06:41 96 T-piece 6.00 28 02/17/16 06:41 96 T-piece 6.00 28 02/17/16 04:12 97.8 96 18 134/88 97 02/17/16 00:17 96.8 92 18 122/72 97 02/16/16 20:19 97.6 82 19 125/67 100 02/16/16 19:39 100 T-piece 6.00 28 02/16/16 19:39 100 T-piece 6.00 28 02/16/16 16:00 96.8 80 16 118/77 100 02/16/16 15:46 100 T-Piece 6.00 28 I/O 02/16/16 02/16/16 02/16/16 02/17/16 02/17/16 02/17/16 07:00 15:00 23:00 07:00 15:00 23:00 Intake Total 800 ml 1005 ml Output Total 1000 ml 1200 ml 800 ml Balance -1000 ml -400 ml 1005 ml -800 ml Tube Feeding 605 ml Other 800 ml 400 ml Output Urine Total 1000 ml 1200 ml 800 ml # Bowel Movements 2 Result Diagram: 02/13/1650 02/13/1650 Imaging Last Impressions Chest X-Ray 02/12/16 0000 Signed Impressions: Service Date/Time: Friday, February 12, 2016 13:27 - CONCLUSION: Subsegmental basilar atelectasis similar to prior study. No consolidation and no effusion. Tracheostomy in satisfactory position. 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 Anterior circulation remains intact. Mikie Vargas MD Head CT 01/16/16 0000 Signed Impressions: Service Date/Time: Saturday, January 16, 2016 10:51 - CONCLUSION: No extensive low density in the brainstem colin more prominent in the right the left extending into the right middle cerebellar peduncle consistent with brainstem infarct nonhemorrhagic acute Wellington West MD Brain MRI 01/16/16 0000 Signed Impressions: Service Date/Time: Saturday, January 16, 2016 20:05 - CONCLUSION: Recent infarctions in both occipital lobes and left cerebellum. High flair abnormality within the colin but greater on the right where there is enhancement. This is likely related to progressive acute ischemic changes. Mikie Vargas MD Abdomen X-Ray 01/14/16 0000 Signed Impressions: Service Date/Time: Thursday, January 14, 2016 10:19 - CONCLUSION: Moderate stool; otherwise, negative. 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 No evidence of carotid stenosis. Glen Zamora MD Head/Brain Mag Res Venography 12/22/15 0000 Signed Impressions: Service Date/Time: Tuesday, December 22, 2015 09:22 - CONCLUSION: Normal MRV. Jonel Jones Jr., MD Objective Remarks GENERAL: Well-nourished, well-developed male patient in NAD. SKIN: Warm and dry. HEAD: Normocephalic. Atraumatic. EYES: Pupils equal and round. No scleral icterus. No injection or drainage. NECK: Supple. Tracheostomy in place. CARDIOVASCULAR: Regular rate and rhythm. S1, S2 noted. No murmur appreciated. RESPIRATORY: No accessory muscle use. Clear to auscultation. Breath sounds equal bilaterally. GASTROINTESTINAL: Abdomen soft, non-tender, nondistended. Normoactive bowel sounds x4. PEG in place. MUSCULOSKELETAL: No obvious deformities. Extremities without clubbing, cyanosis , or edema. NEUROLOGICAL: Eyes locked, open. Does not move any extremities. Nonverbal. Procedures PEG and trach Medications and IVs Current Medications Medications (Trade) Dose Ordered Sig/Junior Route Start Time Stop Time Status Last Admin (NS Flush) 2 ml UNSCH PRN IVF 12/21/15 06:00 01/30/16 22:47 (D50w (Vial) Inj) 25 ml UNSCH PRN IV PUSH 12/21/15 13:00 (Glucagon Inj) 1 mg UNSCH PRN OTHER 12/21/15 13:00 (Keppra Liq) 500 mg Q12HR TUBE 12/27/15 21:00 02/17/16 08:02 (Colace Liq) 100 mg Q12HR TUBE 12/27/15 21:00 Hold 01/15/16 09:01 (Tylenol 650 Mg/ 20 ml Liq) 650 mg Q6H PRN TUBE 12/30/15 15:15 02/08/16 16:37 (Edison 5-325 Mg) 1 tab Q6H PRN PO 12/31/15 15:00 02/15/16 14:30 (Sublimaze Inj) 25 mcg Q1H PRN IV PUSH 12/31/15 15:00 Insulin Aspart 1 1 Q6HR SQ 01/04/16 12:00 02/16/16 17:48 (Coumadin Consult Pharmacy) 0 ml @ 0 mls/hr UNSCH XX 01/04/16 12:30 (Mycostatin Powder) 1 applic Q12HR TOPICAL 01/08/16 21:00 02/17/16 08:02 (Lopressor) 75 mg TID GT 01/14/16 09:00 02/17/16 08:14 (Pill Splitter) 1 ea UNSCH PRN OTHER 01/14/16 08:30 (Levemir Inj) 24 units HS SQ 01/15/16 21:00 02/16/16 20:10 (Senna Liq) 8.8 mg BID TUBE 01/15/16 21:00 02/15/16 20:46 (Zantac Liq) 150 mg Q24H PO 01/18/16 09:00 02/17/16 08:02 (Free Water) 400 ml Q4HR TUBE 01/19/16 12:00 02/17/16 08:14 (Acetic Acid 0.25% Irr Btl) 10 ml Q8HR IRRIGATION 02/05/16 16:00 02/17/16 05:07 (Paxil Liq) 20 mg DAILY PEG 02/16/16 09:00 02/17/16 08:02 (Coumadin) 3 mg DAILY@1600 PO 02/15/16 16:00 02/16/16 15:32 Urinary Catheter: Yes Assessment to: Continue A/P Problem List: (1) CVA (cerebral vascular accident) Status: Acute (2) A-fib Status: Chronic (3) DM (diabetes mellitus) Status: Chronic Assessment and Plan 60-year-old male with: CVA (cerebral vascular accident): 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 Significant residual cognitive deficit. Non verbal. 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 -Continue Keppra and Coumadin- Palliative care following. Monitor on Keppra. INR is 2.5. GI/Nutrition: Had some issues with PEG tube clogged presumable from Lactinex. This was exchanged by GI at bedside and Lactinex was discontinued. Nepro tube feedings as recommended by dietitian for sodium content. -Continue Nepro at 55 cc/hr per dietitian recommendations. Respiratory failure: Secondary to CVA. Patient is status post tracheostomy. Continue pulmonary toilet and neb treatments as needed. Pulmonary following. - Occasional Blood-tinged secretion around the trach. Trach care per pulmonology. Continue to monitor Depression: Discussed with palliative care Dr. Avilez. Patient started on antidepressives. A-fib: continue Lopressor, warfarin with INR/PT monitoring. Echocardiogram completed in November shows preserved EF. INR is 2.3 today. UTI: Urine culture grew Klebsiella. Patient completed ceftriaxone course. Exchanged Arevalo catheter as it has been going on since last changed. Coccyx pressure ulcer: Plastic surgery was reconsulted. Plastic surgery provided recommendations. History of Non-Hodgkin lymphoma: s/p brain biopsy on December 13, by Neurosurgery, Dr. Marin, Pathology consistent with acute infarct without evidence of lymphoma -Seen by Oncology, Dr. Whyte, who has signed off for current admission as there are no active oncology issues DM: Hemoglobin A1c is 7.0. Continue Levemir with sliding scale insulin- monitor and adjust the regimen as needed. DVT prophylaxis: Full anticoagulation with Coumadin. INR therapeutic Discharge Planning Discharge planning per case management. Attending Statement Patient seen by mid-level provider. I agree with above. Neurology reevaluated today. No significant change. Problem Qualifiers (1) DM (diabetes mellitus): Qualified Code: E11.9 - Type 2 diabetes mellitus without complications Ernestine Townsend PA-C Feb 17, 2016 12:42 Uziel Umñaa MD Feb 17, 2016 16:04
[2016-02-17] MEDS: WARFARIN SOD 3 MG TAB PO SCH (16:27)
[2016-02-17] MEDS: INSULIN DETEMIR 100 UNITS/ML VIAL SQ SCH (20:54)
[2016-02-18] VITALS (9 sets, daily range): BP systolic 126–161; BP diastolic 72–89; PULSE 80–101; RESP 16–20; TEMP 96.4–98.7; O2SAT 95–99
[2016-02-18] MEDS: FREE WATER TUBE SCH ×6 (04:00→20:00)
[2016-02-18] MEDS: INSULIN ASPART SUPPLEMENTAL SCALE SQ SCH ×4 (05:44→18:00)
[2016-02-18] MEDS: ACETIC ACID 0.25% SOLN 1000 ML IRR BTL IRRIGATION SCH ×3 (05:44→20:52)
[2016-02-18] MEDS: RESP: IPRATROPIUM 0.5 MG/2.5 ML NEB NEB SCH ×3 (07:51→20:07)
[2016-02-18] MEDS: SENNOSIDES SYRUP 8.8 MG/5 ML CUP TUBE SCH ×2 (08:07→20:52)
[2016-02-18] MEDS: NYSTATIN 100,000 U/GM PWD 15 GM BTL TOPICAL SCH ×2 (08:12→20:51)
[2016-02-18] MEDS: METOPROLOL TARTRATE 50 MG TAB GT SCH ×3 (08:12→18:00)
[2016-02-18] MEDS: PARoxetine HCL SUSP 20 MG/10 ML UDC PEG SCH (08:12)
[2016-02-18] MEDS: RANITIDINE HCL SYRUP 150 MG/10 ML UDC PO SCH (08:12)
[2016-02-18] MEDS: levETIRAcetam 500 MG/5 ML UDC TUBE SCH ×2 (08:12→20:51)
[2016-02-18 10:11] LABS: INTERNATIONAL NORMALIZED RATIO 2.2 RATIO; PROTHROMBIN TIME - PATIENT 23.9 SEC (9.8-11.4)
--- NOTE | 2016-02-18 15:07 | HHI.PR ---
Subjective Remarks Patient seen with mother and sister at bedside. Patient initially sleeping. Awoken by family for evaluation. Patient nonverbal. Does move eyes and head. No concerns from family. BP slightly elevated this morning, now improved. Objective Vitals Vital Signs Date Time Temp Pulse Resp B/P Pulse Ox O2 Delivery O2 Flow Rate FiO2 02/18/16 12:22 96.8 86 16 139/87 98 02/18/16 10:17 96 02/18/16 08:06 96.8 101 17 161/89 95 02/18/16 07:51 99 T-piece 5.00 02/18/16 07:51 99 T-piece 5.00 02/18/16 07:12 98 T-Piece 28 02/18/16 04:43 96.4 95 18 142/84 98 02/18/16 00:14 98.7 89 20 136/83 98 02/17/16 21:00 98 T-Piece 6.00 28 02/17/16 21:00 87 02/17/16 20:22 96.8 83 20 159/77 96 02/17/16 20:19 98 T-piece 28 02/17/16 20:19 98 T-piece 6.00 28 02/17/16 16:00 96.3 78 16 117/75 97 I/O 02/17/16 02/17/16 02/17/16 02/18/16 02/18/16 02/18/16 07:00 15:00 23:00 07:00 15:00 23:00 Intake Total 0 ml 680 ml Output Total 800 ml 1250 ml 650 ml 750 ml Balance -800 ml -1250 ml -650 ml -70 ml Intake Oral 0 ml 680 ml Output Urine Total 800 ml 1250 ml 650 ml 750 ml # Voids 0 # Bowel Movements 1 0 0 Imaging Last Impressions Chest X-Ray 02/12/16 0000 Signed Impressions: Service Date/Time: Friday, February 12, 2016 13:27 - CONCLUSION: Subsegmental basilar atelectasis similar to prior study. No consolidation and no effusion. Tracheostomy in satisfactory position. 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 Anterior circulation remains intact. Mikie Vargas MD Head CT 01/16/16 0000 Signed Impressions: Service Date/Time: Saturday, January 16, 2016 10:51 - CONCLUSION: No extensive low density in the brainstem colin more prominent in the right the left extending into the right middle cerebellar peduncle consistent with brainstem infarct nonhemorrhagic acute Wellington West MD Brain MRI 01/16/16 0000 Signed Impressions: Service Date/Time: Saturday, January 16, 2016 20:05 - CONCLUSION: Recent infarctions in both occipital lobes and left cerebellum. High flair abnormality within the colin but greater on the right where there is enhancement. This is likely related to progressive acute ischemic changes. Mikie Vargas MD Abdomen X-Ray 01/14/16 0000 Signed Impressions: Service Date/Time: Thursday, January 14, 2016 10:19 - CONCLUSION: Moderate stool; otherwise, negative. 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 No evidence of carotid stenosis. Glen Zamora MD Head/Brain Mag Res Venography 12/22/15 0000 Signed Impressions: Service Date/Time: Tuesday, December 22, 2015 09:22 - CONCLUSION: Normal MRV. Jonel Jones Jr., MD Objective Remarks GENERAL: Well-nourished, well-developed male patient in [facility]. SKIN: Warm and dry. HEAD: Normocephalic. Atraumatic. EYES: Pupils equal and round. No scleral icterus. No injection or drainage. NECK: Supple. Tracheostomy in place. CARDIOVASCULAR: Regular rate and rhythm. S1, S2 noted. No murmur appreciated. RESPIRATORY: No accessory muscle use. Clear to auscultation. Breath sounds equal bilaterally. GASTROINTESTINAL: Abdomen soft, non-tender, nondistended. Normoactive bowel sounds x4. PEG in place. MUSCULOSKELETAL: No obvious deformities. Extremities without clubbing, cyanosis , or edema. NEUROLOGICAL: Eyes locked, open. Does not move any extremities. Nonverbal. Procedures PEG and trach Medications and IVs Current Medications Medications (Trade) Dose Ordered Sig/Junior Route Start Time Stop Time Status Last Admin (NS Flush) 2 ml UNSCH PRN IVF 12/21/15 06:00 01/30/16 22:47 (D50w (Vial) Inj) 25 ml UNSCH PRN IV PUSH 12/21/15 13:00 (Glucagon Inj) 1 mg UNSCH PRN OTHER 12/21/15 13:00 (Keppra Liq) 500 mg Q12HR TUBE 12/27/15 21:00 02/18/16 08:12 (Colace Liq) 100 mg Q12HR TUBE 12/27/15 21:00 Hold 01/15/16 09:01 (Tylenol 650 Mg/ 20 ml Liq) 650 mg Q6H PRN TUBE 12/30/15 15:15 02/08/16 16:37 ([place] 5-325 Mg) 1 tab Q6H PRN PO 12/31/15 15:00 02/15/16 14:30 (Sublimaze Inj) 25 mcg Q1H PRN IV PUSH 12/31/15 15:00 Insulin Aspart 1 1 Q6HR SQ 01/04/16 12:00 02/16/16 17:48 (Coumadin Consult Pharmacy) 0 ml @ 0 mls/hr UNSCH XX 01/04/16 12:30 (Mycostatin Powder) 1 applic Q12HR TOPICAL 01/08/16 21:00 02/18/16 08:12 (Lopressor) 75 mg TID GT 01/14/16 09:00 02/18/16 12:48 (Pill Splitter) 1 ea UNSCH PRN OTHER 01/14/16 08:30 (Levemir Inj) 24 units HS SQ 01/15/16 21:00 02/17/16 20:54 (Senna Liq) 8.8 mg BID TUBE 01/15/16 21:00 02/15/16 20:46 (Zantac Liq) 150 mg Q24H PO 01/18/16 09:00 02/18/16 08:12 (Free Water) 400 ml Q4HR TUBE 01/19/16 12:00 02/18/16 12:48 (Acetic Acid 0.25% Irr Btl) 10 ml Q8HR IRRIGATION 02/05/16 16:00 02/18/16 12:48 (Paxil Liq) 20 mg DAILY PEG 02/16/16 09:00 02/18/16 08:12 (Coumadin) 3 mg DAILY@1600 PO 02/15/16 16:00 02/17/16 16:27 A/P Problem List: (1) CVA (cerebral vascular accident) Status: Acute (2) A-fib Status: Chronic (3) DM (diabetes mellitus) Status: Chronic Assessment and Plan 60-year-old male with: CVA (cerebral vascular accident): 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 Significant residual cognitive deficit. Non verbal. 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 -Continue Keppra and Coumadin- Palliative care following. Monitor on Keppra. INR is 2.2. GI/Nutrition: Had some issues with PEG tube clogged presumable from Lactinex. This was exchanged by GI at bedside and Lactinex was discontinued. Nepro tube feedings as recommended by dietitian for sodium content. -Continue Nepro at 55 cc/hr per dietitian recommendations. Respiratory failure: Secondary to CVA. Patient is status post tracheostomy. Continue pulmonary toilet and neb treatments as needed. Pulmonary following. - Occasional Blood-tinged secretion around the trach. Trach care per pulmonology. Continue to monitor Depression: Discussed with palliative care Dr. Avilez. Patient started on antidepressives. A-fib: continue Lopressor, warfarin with INR/PT monitoring. Echocardiogram completed in November shows preserved EF. INR is 2.2 today. UTI: Urine culture grew Klebsiella. Patient completed ceftriaxone course. Exchanged Arevalo catheter as it has been going on since last changed. Coccyx pressure ulcer: Plastic surgery was reconsulted. Plastic surgery provided recommendations. History of Non-Hodgkin lymphoma: s/p brain biopsy on December 13, by Neurosurgery, Dr. Marin, Pathology consistent with acute infarct without evidence of lymphoma -Seen by Oncology, Dr. Whyte, who has signed off for current admission as there are no active oncology issues DM: Hemoglobin A1c is 7.0. Continue Levemir with sliding scale insulin- monitor and adjust the regimen as needed. DVT prophylaxis: Full anticoagulation with Coumadin. INR therapeutic Discharge Planning Discharge planning per case management. Attending Statement Patient seen by mid-level provider. I agree with above. Patient was started on antidepressives, then family wanted to discontinue. Problem Qualifiers (1) DM (diabetes mellitus): Qualified Code: E11.9 - Type 2 diabetes mellitus without complications Ernestine Townsend PA-C Feb 18, 2016 15:07 Uziel Umaña MD Feb 18, 2016 18:41
[2016-02-18] MEDS: WARFARIN SOD 3 MG TAB PO SCH (16:22)
[2016-02-18] MEDS: INSULIN DETEMIR 100 UNITS/ML VIAL SQ SCH (20:51)
[2016-02-19] VITALS (10 sets, daily range): BP systolic 121–136; BP diastolic 71–86; PULSE 78–102; RESP 19–22; TEMP 96.8–98.8; O2SAT 93–100
[2016-02-19] MEDS: FREE WATER TUBE SCH ×6 (04:00→20:00)
[2016-02-19] MEDS: INSULIN ASPART SUPPLEMENTAL SCALE SQ SCH ×4 (06:00→17:11)
[2016-02-19] MEDS: ACETIC ACID 0.25% SOLN 1000 ML IRR BTL IRRIGATION SCH ×3 (06:23→20:43)
[2016-02-19] MEDS: RESP: IPRATROPIUM 0.5 MG/2.5 ML NEB NEB SCH ×3 (07:30→20:33)
[2016-02-19 07:59] LABS: INTERNATIONAL NORMALIZED RATIO 2.1 RATIO; PROTHROMBIN TIME - PATIENT 22.2 SEC (9.8-11.4)
[2016-02-19] MEDS: SENNOSIDES SYRUP 8.8 MG/5 ML CUP TUBE SCH ×2 (08:10→20:43)
[2016-02-19] MEDS: PARoxetine HCL SUSP 20 MG/10 ML UDC PEG SCH (08:10)
[2016-02-19] MEDS: RANITIDINE HCL SYRUP 150 MG/10 ML UDC PO SCH (08:10)
[2016-02-19] MEDS: levETIRAcetam 500 MG/5 ML UDC TUBE SCH ×2 (08:10→20:43)
[2016-02-19] MEDS: NYSTATIN 100,000 U/GM PWD 15 GM BTL TOPICAL SCH ×2 (08:10→20:43)
[2016-02-19] MEDS: METOPROLOL TARTRATE 50 MG TAB GT SCH ×3 (08:10→17:08)
--- NOTE | 2016-02-19 14:23 | HHI.PR ---
Subjective Remarks Patient seen again with mother, sister, [id number] at bedside. No concerns from family. No acute events overnight. Patient awake with eyes open today. The family believes the patient answers questions by keeping eyes open for yes and eyes closed for no. Vital signs stable. Objective Vitals Vital Signs Date Time Temp Pulse Resp B/P Pulse Ox O2 Delivery O2 Flow Rate FiO2 02/19/16 12:23 98.8 89 22 133/86 98 02/19/16 09:34 95 02/19/16 08:22 97.4 101 22 136/80 98 02/19/16 07:37 98 T-Piece 5.00 28 02/19/16 07:30 96 T-piece 28 02/19/16 07:30 96 T-piece 02/19/16 04:16 98.4 102 20 130/83 93 02/19/16 00:30 99 T-piece 02/19/16 00:26 98.4 84 19 132/77 100 02/18/16 21:00 99 T-Piece 5.00 28 02/18/16 21:00 80 02/18/16 20:12 96.7 82 17 126/72 95 02/18/16 16:18 97.1 82 16 149/87 99 I/O 02/18/16 02/18/16 02/18/16 02/19/16 02/19/16 02/19/16 07:00 15:00 23:00 07:00 15:00 23:00 Intake Total 680 ml 380 ml 0 ml Output Total 750 ml 2050 ml 450 ml 500 ml Balance -70 ml -1670 ml -450 ml -500 ml Intake Oral 680 ml 380 ml 0 ml Output Urine Total 750 ml 2050 ml 450 ml 500 ml # Voids 0 0 0 # Bowel Movements 0 2 0 1 Imaging Last Impressions Chest X-Ray 02/12/16 0000 Signed Impressions: Service Date/Time: Friday, February 12, 2016 13:27 - CONCLUSION: Subsegmental basilar atelectasis similar to prior study. No consolidation and no effusion. Tracheostomy in satisfactory position. 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 Anterior circulation remains intact. Mikie Vargas MD Head CT 01/16/16 0000 Signed Impressions: Service Date/Time: Saturday, January 16, 2016 10:51 - CONCLUSION: No extensive low density in the brainstem colin more prominent in the right the left extending into the right middle cerebellar peduncle consistent with brainstem infarct nonhemorrhagic acute Wellington West MD Brain MRI 01/16/16 0000 Signed Impressions: Service Date/Time: Saturday, January 16, 2016 20:05 - CONCLUSION: Recent infarctions in both occipital lobes and left cerebellum. High flair abnormality within the colin but greater on the right where there is enhancement. This is likely related to progressive acute ischemic changes. Mikie Vargas MD Abdomen X-Ray 01/14/16 0000 Signed Impressions: Service Date/Time: Thursday, January 14, 2016 10:19 - CONCLUSION: Moderate stool; otherwise, negative. 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 No evidence of carotid stenosis. Glen Zamora MD Head/Brain Mag Res Venography 12/22/15 0000 Signed Impressions: Service Date/Time: Tuesday, December 22, 2015 09:22 - CONCLUSION: Normal MRV. Jonel Jones Jr., MD Objective Remarks GENERAL: Well-nourished, well-developed male patient in [facility]. SKIN: Warm and dry. HEAD: Normocephalic. Atraumatic. EYES: Pupils equal and round. No scleral icterus. No injection or drainage. NECK: Supple. Tracheostomy in place. CARDIOVASCULAR: Regular rate and rhythm. S1, S2 noted. No murmur appreciated. RESPIRATORY: No accessory muscle use. Clear to auscultation. Breath sounds equal bilaterally. GASTROINTESTINAL: Abdomen soft, non-tender, nondistended. Normoactive bowel sounds x4. PEG in place. MUSCULOSKELETAL: No obvious deformities. Extremities without clubbing, cyanosis , or edema. NEUROLOGICAL: Eyes locked, open. Does not move any extremities. Nonverbal. Procedures PEG and trach Medications and IVs Current Medications Medications (Trade) Dose Ordered Sig/Junior Route Start Time Stop Time Status Last Admin (NS Flush) 2 ml UNSCH PRN IVF 12/21/15 06:00 01/30/16 22:47 (D50w (Vial) Inj) 25 ml UNSCH PRN IV PUSH 12/21/15 13:00 (Glucagon Inj) 1 mg UNSCH PRN OTHER 12/21/15 13:00 (Keppra Liq) 500 mg Q12HR TUBE 12/27/15 21:00 02/19/16 08:10 (Colace Liq) 100 mg Q12HR TUBE 12/27/15 21:00 Hold 01/15/16 09:01 (Tylenol 650 Mg/ 20 ml Liq) 650 mg Q6H PRN TUBE 12/30/15 15:15 02/08/16 16:37 ([place] 5-325 Mg) 1 tab Q6H PRN PO 12/31/15 15:00 02/15/16 14:30 (Sublimaze Inj) 25 mcg Q1H PRN IV PUSH 12/31/15 15:00 Insulin Aspart 1 1 Q6HR SQ 01/04/16 12:00 02/16/16 17:48 (Coumadin Consult Pharmacy) 0 ml @ 0 mls/hr UNSCH XX 01/04/16 12:30 (Mycostatin Powder) 1 applic Q12HR TOPICAL 01/08/16 21:00 02/19/16 08:10 (Lopressor) 75 mg TID GT 01/14/16 09:00 02/19/16 12:36 (Pill Splitter) 1 ea UNSCH PRN OTHER 01/14/16 08:30 (Levemir Inj) 24 units HS SQ 01/15/16 21:00 02/18/16 20:51 (Senna Liq) 8.8 mg BID TUBE 01/15/16 21:00 02/15/16 20:46 (Zantac Liq) 150 mg Q24H PO 01/18/16 09:00 02/19/16 08:10 (Free Water) 400 ml Q4HR TUBE 01/19/16 12:00 02/19/16 11:44 (Acetic Acid 0.25% Irr Btl) 10 ml Q8HR IRRIGATION 02/05/16 16:00 02/19/16 12:36 (Paxil Liq) 20 mg DAILY PEG 02/16/16 09:00 02/19/16 08:10 (Coumadin) 3 mg DAILY@1600 PO 02/15/16 16:00 02/18/16 16:22 Urinary Catheter: Yes Assessment to: Continue A/P Problem List: (1) CVA (cerebral vascular accident) Status: Acute (2) A-fib Status: Chronic (3) DM (diabetes mellitus) Status: Chronic Assessment and Plan 60-year-old male with: CVA (cerebral vascular accident): 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 Significant residual cognitive deficit. Non verbal. 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 -Continue Keppra and Coumadin- Palliative care following. Monitor on Keppra. INR therapeutic. GI/Nutrition: Had some issues with PEG tube clogged presumable from Lactinex. This was exchanged by GI at bedside and Lactinex was discontinued. Nepro tube feedings as recommended by dietitian for sodium content. -Continue Nepro at 55 cc/hr per dietitian recommendations. Respiratory failure: Secondary to CVA. Patient is status post tracheostomy. Continue pulmonary toilet and neb treatments as needed. Pulmonary following. - Occasional Blood-tinged secretion around the trach. Trach care per pulmonology. Continue to monitor Depression: Discussed with palliative care Dr. Avilez. Patient was started on antidepressives, however family elected to discontinue. A-fib: continue Lopressor, warfarin with INR/PT monitoring. Echocardiogram completed in November shows preserved EF. INR is 2.2 today. UTI: Urine culture grew Klebsiella. Patient completed ceftriaxone course. Exchanged Arevalo catheter ordered 02/15. Coccyx pressure ulcer: Plastic surgery was reconsulted. Plastic surgery provided recommendations. History of Non-Hodgkin lymphoma: s/p brain biopsy on December 13, by Neurosurgery, Dr. Marin, Pathology consistent with acute infarct without evidence of lymphoma -Seen by Oncology, Dr. Whyte, who has signed off for current admission as there are no active oncology issues DM: Hemoglobin A1c is 7.0. Continue Levemir with sliding scale insulin- monitor and adjust the regimen as needed. DVT prophylaxis: Full anticoagulation with Coumadin. INR therapeutic Discharge Planning Discharge planning per case management. Attending Statement Patient seen by midlevel provider. I agree with above. Problem Qualifiers (1) DM (diabetes mellitus): Qualified Code: E11.9 - Type 2 diabetes mellitus without complications Ernestine Townsend PA-C Feb 19, 2016 14:23 Uziel Umaña MD Feb 19, 2016 18:12
[2016-02-19] MEDS: WARFARIN SOD 3 MG TAB PO SCH (16:42)
[2016-02-19] MEDS: INSULIN DETEMIR 100 UNITS/ML VIAL SQ SCH (20:43)
[2016-02-20] VITALS (10 sets, daily range): BP systolic 127–136; BP diastolic 76–85; PULSE 78–95; RESP 20–22; TEMP 96.1–98.3; O2SAT 96–100
[2016-02-20] MEDS: FREE WATER TUBE SCH ×6 (04:00→20:40)
[2016-02-20] MEDS: ACETIC ACID 0.25% SOLN 1000 ML IRR BTL IRRIGATION SCH ×3 (04:53→20:44)
[2016-02-20] MEDS: INSULIN ASPART SUPPLEMENTAL SCALE SQ SCH ×4 (05:37→16:34)
[2016-02-20 07:44] LABS: INTERNATIONAL NORMALIZED RATIO 1.9 RATIO
[2016-02-20] MEDS: RESP: IPRATROPIUM 0.5 MG/2.5 ML NEB NEB SCH ×3 (08:20→20:45)
[2016-02-20] MEDS: RANITIDINE HCL SYRUP 150 MG/10 ML UDC PO SCH (08:32)
[2016-02-20] MEDS: SENNOSIDES SYRUP 8.8 MG/5 ML CUP TUBE SCH (08:32)
[2016-02-20] MEDS: levETIRAcetam 500 MG/5 ML UDC TUBE SCH ×2 (08:32→20:39)
[2016-02-20] MEDS: METOPROLOL TARTRATE 50 MG TAB GT SCH ×3 (08:33→17:58)
[2016-02-20] MEDS: PARoxetine HCL SUSP 20 MG/10 ML UDC PEG SCH (08:33)
[2016-02-20] MEDS: NYSTATIN 100,000 U/GM PWD 15 GM BTL TOPICAL SCH ×2 (08:57→20:45)
--- NOTE | 2016-02-20 15:59 | HHI.PR ---
Subjective Remarks Discussed with RN, patient had one episode of loose stools around midday. No fevers noted. No further episodes. The patient is seen and examined with the patient's mother and the patient's niece at bedside. They have no acute complaints today. Objective Vitals Vital Signs Date Time Temp Pulse Resp B/P Pulse Ox O2 Delivery O2 Flow Rate FiO2 02/20/16 12:24 98.0 81 22 135/76 98 02/20/16 12:04 92 02/20/16 10:22 T-Piece 6.00 28 02/20/16 08:20 100 T-piece 28 02/20/16 08:20 100 T-piece 28 02/20/16 08:12 97.3 95 20 130/76 99 02/20/16 04:55 96.8 94 21 136/85 100 02/20/16 00:55 96.1 85 21 128/84 96 02/19/16 20:33 100 T-piece 6.00 02/19/16 20:33 100 T-piece 6.00 28 02/19/16 20:00 96.8 81 21 132/78 98 02/19/16 16:10 98.5 78 20 121/71 100 I/O 02/19/16 02/19/16 02/19/16 02/20/16 02/20/16 02/20/16 07:00 15:00 23:00 07:00 15:00 23:00 Intake Total 0 ml 400 ml 1202 ml Output Total 450 ml 500 ml 1100 ml 300 ml 800 ml Balance -450 ml -500 ml -700 ml 902 ml -800 ml Intake Oral 0 ml Tube Feeding 402 ml Other 400 ml 800 ml Output Urine Total 450 ml 500 ml 1100 ml 300 ml 800 ml # Voids 0 # Bowel Movements 0 1 1 Imaging Last Impressions Chest X-Ray 02/12/16 0000 Signed Impressions: Service Date/Time: Friday, February 12, 2016 13:27 - CONCLUSION: Subsegmental basilar atelectasis similar to prior study. No consolidation and no effusion. Tracheostomy in satisfactory position. 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 Anterior circulation remains intact. Mikie Vargas MD Head CT 01/16/16 0000 Signed Impressions: Service Date/Time: Saturday, January 16, 2016 10:51 - CONCLUSION: No extensive low density in the brainstem colin more prominent in the right the left extending into the right middle cerebellar peduncle consistent with brainstem infarct nonhemorrhagic acute Wellington West MD Brain MRI 01/16/16 0000 Signed Impressions: Service Date/Time: Saturday, January 16, 2016 20:05 - CONCLUSION: Recent infarctions in both occipital lobes and left cerebellum. High flair abnormality within the colin but greater on the right where there is enhancement. This is likely related to progressive acute ischemic changes. Mikie Vargas MD Abdomen X-Ray 01/14/16 0000 Signed Impressions: Service Date/Time: Thursday, January 14, 2016 10:19 - CONCLUSION: Moderate stool; otherwise, negative. 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 No evidence of carotid stenosis. Glen Zamora MD Head/Brain Mag Res Venography 12/22/15 0000 Signed Impressions: Service Date/Time: Tuesday, December 22, 2015 09:22 - CONCLUSION: Normal MRV. Jonel Jones Jr., MD Objective Remarks GENERAL: Well-developed well-nourished. In no acute distress. SKIN: Warm and dry. No lesions noted. HEENT: Normocephalic. Pupils equal and round. Mucous membranes pink and moist. CARDIOVASCULAR: Regular rate and rhythm. No murmur appreciated. RESPIRATORY: No accessory muscle use. Clear to auscultation. Breath sounds equal bilaterally. GASTROINTESTINAL: Abdomen soft, non-tender, nondistended. Bowel sounds x4. PEG in place. MUSCULOSKELETAL: No obvious deformities. No clubbing or cyanosis. No edema. NEUROLOGICAL: Awake and alert. Eyes open. Locked in. Nonverbal. 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 Significant residual cognitive deficit. Non verbal. 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 -Continue Keppra and Coumadin- Palliative care following. Monitor on Keppra. GI/Nutrition: Had some issues with PEG tube clogged presumable from Lactinex. This was exchanged by GI at bedside and Lactinex was discontinued. Nepro tube feedings as recommended by dietitian for sodium content. -Continue Nepro at 55 cc/hr per dietitian recommendations. Respiratory failure: Secondary to CVA. Patient is status post tracheostomy. Continue pulmonary toilet and neb treatments as needed. Pulmonary following. - Occasional Blood-tinged secretion around the trach. Trach care per pulmonology. Continue to monitor Depression: Discussed with palliative care Dr. Avilez. Patient was started on antidepressant medications, however family elected to discontinue. A-fib: continue Lopressor, warfarin with INR/PT monitoring. Echocardiogram completed in November shows preserved EF. INR is 1.9, Coumadin dose increased to 4 by pharmacy.. UTI: Urine culture grew Klebsiella. Patient completed ceftriaxone course. Exchanged Arevalo catheter ordered 02/15. Coccyx pressure ulcer: Plastic surgery was reconsulted. Plastic surgery provided recommendations. History of Non-Hodgkin lymphoma: s/p brain biopsy on December 13, by Neurosurgery, Dr. Marin, Pathology consistent with acute infarct without evidence of lymphoma -Seen by Oncology, Dr. Whyte, who has signed off for current admission as there are no active oncology issues DM: Hemoglobin A1c is 7.0. Continue Levemir with sliding scale insulin- monitor and adjust the regimen as needed. Diarrhea: One episode today. Patient has remained afebrile. Abdomen is soft. Decrease sennosides to daily. Check CBC if patient develops temperature or further episodes. DVT prophylaxis: Full anticoagulation with Coumadin. INR therapeutic Discharge Planning Patient will need placement. Discussed with case management, SSI pending. Plan of care discussed with Dr. Umaña. Attending Statement Patient seen by mid-level provider. I agree with above. Problem Qualifiers (1) DM (diabetes mellitus): Qualified Code: E11.9 - Type 2 diabetes mellitus without complications Floyd Vinson Feb 20, 2016 15:59 Uziel Umaña MD Feb 20, 2016 16:26
[2016-02-20] MEDS: WARFARIN SOD 4 MG TAB PO SCH (16:19)
[2016-02-20] MEDS: ACETAMINOPHEN/HYDROcodone 325 MG/5 MG TAB PO PRN (20:39)
[2016-02-20] MEDS: INSULIN DETEMIR 100 UNITS/ML VIAL SQ SCH (20:40)
[2016-02-21] VITALS (9 sets, daily range): BP systolic 136–152; BP diastolic 80–90; PULSE 83–96; RESP 18–21; TEMP 96.3–97.6; O2SAT 95–100
[2016-02-21] MEDS: FREE WATER TUBE SCH ×6 (00:50→21:07)
[2016-02-21] MEDS: ACETIC ACID 0.25% SOLN 1000 ML IRR BTL IRRIGATION SCH ×3 (05:24→21:29)
[2016-02-21] MEDS: INSULIN ASPART SUPPLEMENTAL SCALE SQ SCH ×4 (05:27→17:46)
[2016-02-21] MEDS: levETIRAcetam 500 MG/5 ML UDC TUBE SCH ×2 (07:50→21:07)
[2016-02-21] MEDS: RANITIDINE HCL SYRUP 150 MG/10 ML UDC PO SCH (07:50)
[2016-02-21] MEDS: PARoxetine HCL SUSP 20 MG/10 ML UDC PEG SCH (07:50)
[2016-02-21] MEDS: SENNOSIDES SYRUP 8.8 MG/5 ML CUP TUBE SCH (07:51)
[2016-02-21] MEDS: METOPROLOL TARTRATE 50 MG TAB GT SCH ×3 (07:51→17:44)
[2016-02-21] MEDS: NYSTATIN 100,000 U/GM PWD 15 GM BTL TOPICAL SCH ×2 (07:52→21:29)
[2016-02-21] MEDS: RESP: IPRATROPIUM 0.5 MG/2.5 ML NEB NEB SCH ×2 (08:16→13:17)
[2016-02-21 09:33] LABS: INTERNATIONAL NORMALIZED RATIO 2.1 RATIO; PROTHROMBIN TIME - PATIENT 22.3 SEC (9.8-11.4)
--- NOTE | 2016-02-21 11:16 | HHI.PR ---
Subjective Remarks Patient seen with family at bedside and states that he had a headache last night and received Tylenol and does not have any pain currently. Discussed with RN, stool softener so because of the episode of loose stool yesterday, no further episodes of diarrhea/loose stools noted since. No other complaints noted at this time. Objective Vitals Vital Signs Date Time Temp Pulse Resp B/P Pulse Ox O2 Delivery O2 Flow Rate FiO2 02/21/16 09:18 97.3 96 21 136/80 100 02/21/16 08:18 99 T-piece 02/21/16 08:18 99 T-piece 28 02/21/16 08:04 97 T-Piece 4.00 28 Humidified 02/21/16 04:57 96.6 96 21 137/87 98 02/21/16 00:00 96.3 84 21 138/83 98 02/20/16 21:02 100 T-piece 02/20/16 20:49 100 T-piece 02/20/16 20:28 97.3 81 21 131/76 98 02/20/16 16:04 98.3 78 22 127/78 100 02/20/16 12:24 98.0 81 22 135/76 98 02/20/16 12:04 92 I/O 02/20/16 02/20/16 02/20/16 02/21/16 02/21/16 02/21/16 07:00 15:00 23:00 07:00 15:00 23:00 Intake Total 1202 ml Output Total 300 ml 800 ml 1550 ml 700 ml 0 ml Balance 902 ml -800 ml -1550 ml -700 ml 0 ml Tube Feeding 402 ml Other 800 ml Output Urine Total 300 ml 800 ml 1550 ml 700 ml Tube Feeding Residual Discard 0 ml # Bowel Movements 1 0 Imaging Last Impressions Chest X-Ray 02/12/16 0000 Signed Impressions: Service Date/Time: Friday, February 12, 2016 13:27 - CONCLUSION: Subsegmental basilar atelectasis similar to prior study. No consolidation and no effusion. Tracheostomy in satisfactory position. 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 Anterior circulation remains intact. Mikie Vargas MD Head CT 01/16/16 0000 Signed Impressions: Service Date/Time: Saturday, January 16, 2016 10:51 - CONCLUSION: No extensive low density in the brainstem colin more prominent in the right the left extending into the right middle cerebellar peduncle consistent with brainstem infarct nonhemorrhagic acute Wellington West MD Brain MRI 01/16/16 0000 Signed Impressions: Service Date/Time: Saturday, January 16, 2016 20:05 - CONCLUSION: Recent infarctions in both occipital lobes and left cerebellum. High flair abnormality within the colin but greater on the right where there is enhancement. This is likely related to progressive acute ischemic changes. Mikie Vargas MD Abdomen X-Ray 01/14/16 0000 Signed Impressions: Service Date/Time: Thursday, January 14, 2016 10:19 - CONCLUSION: Moderate stool; otherwise, negative. 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 No evidence of carotid stenosis. Glen Zamora MD Head/Brain Mag Res Venography 12/22/15 0000 Signed Impressions: Service Date/Time: Tuesday, December 22, 2015 09:22 - CONCLUSION: Normal MRV. Jonel Jones Jr., MD Objective Remarks GENERAL: Well-developed well-nourished. In no acute distress. SKIN: Warm and dry. No lesions noted. HEENT: Normocephalic. Pupils equal and round. Mucous membranes pink and moist. Trach in place. CARDIOVASCULAR: Regular rate and rhythm. No murmur appreciated. RESPIRATORY: No accessory muscle use. Clear to auscultation. Breath sounds equal bilaterally. A few crackles noted. GASTROINTESTINAL: Abdomen soft, non-tender, nondistended. Bowel sounds x4. PEG in place. MUSCULOSKELETAL: No obvious deformities. No clubbing or cyanosis. No edema. NEUROLOGICAL: Awake and alert. Eyes open. Locked in. Nonverbal. 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 Significant residual cognitive deficit. Non verbal. 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 -Continue Keppra and Coumadin- Palliative care following. Monitor on Keppra. GI/Nutrition: Had some issues with PEG tube clogged presumable from Lactinex. This was exchanged by GI at bedside and Lactinex was discontinued. Nepro tube feedings as recommended by dietitian for sodium content. -Continue Nepro at 55 cc/hr per dietitian recommendations. Respiratory failure: Secondary to CVA. Patient is status post tracheostomy. Continue pulmonary toilet and neb treatments as needed. Pulmonary following. - Occasional Blood-tinged secretion around the trach. Trach care per pulmonology. Continue to monitor Depression: Discussed with palliative care Dr. Avilez. Patient started on antidepressives. A-fib: continue Lopressor, warfarin with INR/PT monitoring. Echocardiogram completed in November shows preserved EF. INR is 2.1, Coumadin dose adjusted pharmacy.. UTI: Urine culture grew Klebsiella. Patient completed ceftriaxone course. Exchanged Arevalo catheter ordered 02/15. Coccyx pressure ulcer: Plastic surgery was reconsulted. Plastic surgery provided recommendations. History of Non-Hodgkin lymphoma: s/p brain biopsy on December 13, by Neurosurgery, Dr. Marin, Pathology consistent with acute infarct without evidence of lymphoma -Seen by Oncology, Dr. Whyte, who has signed off for current admission as there are no active oncology issues DM: Hemoglobin A1c is 7.0. Continue Levemir with sliding scale insulin- monitor and adjust the regimen as needed. Diarrhea: One episode yesterday. Patient has remained afebrile. Abdomen is soft. Decreased sennosides to daily. Clinically monitor. DVT prophylaxis: Full anticoagulation with Coumadin. INR Therapeutic Discharge Planning Patient will need placement. Discussed with case management, SSI pending. Attending Statement Patient seen by midlevel provider. I agree with above. Problem Qualifiers (1) DM (diabetes mellitus): Qualified Code: E11.9 - Type 2 diabetes mellitus without complications Floyd Vinson Feb 21, 2016 11:16 Uziel Umaña MD Feb 22, 2016 11:05
--- NOTE | 2016-02-21 15:46 | HHI.HCPN ---
Reason for visit a. To assist with evaluation and management of symptoms including: dyspnea, encephalopathy, depression b. To assist medical decision maker(s) with: better understanding of current medical conditions; weighing benefits/burdens of medical treatment options; making medical treatment decisions. Subjective/Interval History Pt seen today to follow up with family for requested periodic medical updates. Pt stable. PT/ST/OT continues to see pt- they note that he is not consistently following commands, answering questions or communicating. Recently had PEG changed out due to obstruction. Plastics recently evaluated pt, recommends ongoing dressing changes /packing for mechanical debridement, no need for surgical intervention at this time. Paxil started last week per family request. Required dose of [place] overnight for family reported headache. TF on hold currently due to high residual. Pt seen in room, mother, ex at bedside. He is awake, seems to track , though does not answer questions consistently with eyes for her. No mouth or facial movement visible. reports tracheal secretions improving, she has noted much less need to sx him. No visible signs of distress. wondering if high residual r/t d/c of lactinex. Review of current assessments, condition, medications, plastic surgery recommendations. History brought forward from initial consult by Rita MOCTEZUMA on 01/10/16: This 59-year-old patient was admitted on 12/21/15 via the ED for facial drooping. ED physician notes that patient and patients are poor historians, EMS reported the could not provide good timelines to them. Patient also reported headache, difficulty ambulating. He had known history of recent findings of mass in the brain. During ED course had deterioration of clinical condition and able to protect his airway, unable to follow commands patient was intubated and CT brain obtained. He was admitted for further evaluation and management to the ICU. Personnel Recruiter was consulted and following patient. Pathology on recent brain biopsy (12/13) still pending. CLINICAL/HOSPITAL COURSE: * CT brain= no focal or acute intracranial hemorrhage. New area decreased density in left occipital lobe suggestive of recent nonhemorrhagic infarct, decreased density in previously noted right occipital lobe has increased in size * Brain MRI = new area of restricted diffusion within left occipital lobe suggesting acute infarct. Interval enlargement of the area of restricted diffusion within right occipital lobe suggesting probable extension of right occipital and started on. Underlying enhancement of right occipital lobe is slightly worse than the previous exam and nonspecific. Biopsy has been performed and results are pending. Tiny focal area of restricted diffusion within right cerebellar hemisphere consistent with probable acute/subacute lacunar infarct. Signal abnormality in the SWI sequence within the right occipital lobe suggesting some hemorrhage in biopsy bed. No midline shift or extra-axial fluid collections. * CXR= no acute cardiopulmonary disease * -Neurology consulted, ordered MRA to look for vertebrobasilar stenosis, echo done last admission notes normal EF with normal valves and normal left atrial size. EEG also ordered. MR venogram ordered. EEG= abnormal study consistent with her encephalopathy. MRV indicated basilar occlusion; neurology notes discussion with family regarding chemical code only, also notes discussion regarding risks associated with the anticoagulates, was discussed with radiologist/INR recommended not helpful to extract basilar clot as this could result in patient's . It was felt the colin was infarcted. Further neurology notes "he could be locked in", is acting as if colin is infarcted. * Oncology known to patient also consulted for non-Hodgkin's lymphoma: Dr Whyte documents that there was no evidence of residual or recurrent disease on CT scans of chest, abdomen, pelvis done in October and November of this year. Pathology was still pending, had been sent to [facility] for second opinion. No acute oncology interventions recommended at that time, will follow. * 12/23 - 12/25 febrile. CPAP trials. Remains on vent off of sedation. Withdrawing to pain. Repeat brain MRI= evolving brainstem stroke. Neurology notes extensive discussion with family, notes discussion the patient is locked in but fully aware, family would like to see help patient does over the next 3 months. 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 Biopsy brain lesion appears consistent with acute infarct no lymphoma. Family desires ongoing aggressive measures, will proceed with tracheostomy. Sputum culture positive sensitive Klebsiella. * 01/01 tracheostomy, PEG tube placement * 01/04 trach collar trials, alternating with T piece. Low-grade fever 100.5. CXR = mild bibasilar atelectasis. Neuro: Spontaneously opening eyes, looking up / down, directionally to commands. * 01/07 still "locked in " , transferred off ICU to regular floor. * 01/08 pulmonology consulted-not CXR clear no evidence of pulmonary infection. He may have some underlying COPD recommends continued aerosol treatments. Further notes long discussion with family at bedside regarding tracheostomy, long-term use of trach until patient able to protect his airway, no further recommendations. Palliative care consulted to assist with clarification of goals of treatment. Advance Directives Living Will: Never completed Health Care Surrogate: Never completed Objective Vital Signs Date Time Temp Pulse Resp B/P Pulse Ox O2 Delivery O2 Flow Rate FiO2 02/21/16 13:27 97.0 88 20 152/90 95 02/21/16 12:52 93 02/21/16 09:18 97.3 96 21 136/80 100 02/21/16 08:18 99 T-piece 28 02/21/16 08:18 99 T-piece 28 02/21/16 08:04 97 T-Piece 4.00 28 Humidified 02/21/16 04:57 96.6 96 21 137/87 98 02/21/16 00:00 96.3 84 21 138/83 98 02/20/16 21:02 100 T-piece 28 02/20/16 20:49 100 T-piece 28 02/20/16 20:28 97.3 81 21 131/76 98 02/20/16 16:04 98.3 78 22 127/78 100 Intake & Output 02/21/16 02/21/16 07:00 19:00 Output Total 2250 ml 0 ml Balance -2250 ml 0 ml Output Urine Total 2250 ml Tube Feeding Residual Discard 0 ml # Bowel Movements 0 Physical Exam CONSTITUTIONAL/GENERAL: This is an adequately nourished patient, awake, no apparent distress TUBES/LINES/DRAINS: PIV left upper extremity, Arevalo catheter, PEG tube, tracheostomy, SCDs, heel protection boots SKIN: No jaundice, rashes, or lesions.No wounds seen anteriorly. Skin temperature appropriate. Not diaphoretic. CARDIOVASCULAR: Regular rate and rhythm without murmurs. No JVD. Peripheral pulses symmetric. No peripheral edema. RESPIRATORY/CHEST: Symmetric, unlabored respirations. T piece, 28% FiO2. clear breath sounds. Breath sounds equal bilaterally. GASTROINTESTINAL: Abdomen soft, non-tender, nondistended. No palpable masses. Bowel sounds normoactive.TF held currently due to high residual. MUSCULOSKELETAL: Extremities without clubbing, cyanosis, or edema. No joint effusion noted. No mottling or clubbing. NEUROLOGICAL: Asleep during my exam, does not arouse to stimuli. PSYCHIATRIC: Difficult to fully assess due to clinical condition. no apparent hallucinations or other psychotic thought process. Diagnostic Tests Laboratory Laboratory Tests Test 02/19/16 02/20/16 02/21/16 06:50 07:11 08:35 Prothrombin Time 22.2 SEC 21.0 SEC 22.3 SEC (9.8-11.4) (9.8-11.4) (9.8-11.4) Prothromb Time International 2.1 RATIO 1.9 RATIO 2.1 RATIO Ratio Procedures * 01/01 tracheostomy, PEG tube placement . 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; EEG indicates encephalopathy, neuro following patient felt to be in a "locked-in "state (2) Non-Hodgkin lymphoma Comment: -In remission status post chemotherapy completed May 2015 (3) Acute respiratory failure Comment: Pulmonology following, medical management (4) A-fib (5) Status post stereotactic brain biopsy (6) Brain lesion Comment: Status post biopsy November 2015; pathology consistent with acute infarct without evidence of lymphoma (7) DM (diabetes mellitus) Symptom Scale: (1) Dysphagia Comment: Status post significant CVA, has had PEG tube placed (2) Dyspnea Comment: Respiratory failure secondary to CVA, status post tracheostomy, pulmonary following (3) Encephalopathy Comment: Significant CVA, "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 Albumin 2.4. (5) Depression Comment: At risk for related to "locked in status", communication difficulties , situational, but would likely benefit from anti-depressant Pertinent Non-Medical Issues * Psychosocial:Mr. Flores is originally from [place]. He moved to the around 35 years ago, first to [place] and later to [place]. He is not legally but remains with his ex-, Leanne. They have been together for 31+ years and have three children together: Leanne, Gerald, and Ginny. Gerald is currently in [facility] for work. Mr. Flores has 2 brothers and 7 sisters. His father is of old age. His mother is alive and was living with the patient. Greatly enjoys his family. Retired. 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 * Spiritual: * Legal:Patient due to clinical condition is currently unable to participate in medical decision making. Not clear if or when he will regain this ability. Family does not believe he has completed advance directives. per [place] Statutes, medical proxy decision making would fall to the majority of adult children, as Mr. Flores is not legally . * Ethical issues impacting care: Important Contacts Leanne, daughter: [phone] Ginny, daughter: [phone] Gerald, son: currently in [facility] for work but has communication with his siblings. Leanne, ex-: [phone] Prognosis This patient has had 20 day hospital course thus far, admitted on 62 for a large brainstem infarct, bilateral occipital infarcts. He has subsequently had ongoing encephalopathy and severe communication limitations, neurology feels he is in a "locked-in "state. He has suffered from respiratory failure likely secondary to significant CVA. Appears he should be able to survive this acute hospitalization, however not clear when or if he will regain ability to communicate, based on current assessments patient will require long-term care placement. He will remain high risk for potential competition/setbacks due to immobile status including infections, DVT etc. . Code Status: Full Code Plan * GOALS: Very aggressive. See family conference component on initial consult for additional detail. Meeting In summary: Initially they had many questions regarding admission and biopsy which occurred in November, they ask about differentials and decision making leading to the biopsy, and have many concerns regarding that clinical course--advised that I could not speak to any of those questions or processes as I was not involved in his care and decision making at that time, recommend them to direct those specific questions to those initial providers which provided those services. Otherwise review of conditions, goals as detailed in "issues discussed". Family expresses that Mr. Flores did remarkably well following his chemotherapy for lymphoma just last year, and that he had been doing fine until recent issue in November. They endorsed that he is a fighter, that he is a very optimistic person, and that they are certain he is "in there "and would want to continue fighting for whatever recovery he might have." They have many questions regarding rehabilitation services and placement as well as financial coverage for these services, advised that case management could assist them with the various applications which already in process, but that any placement would depend on funding, or alternatively coleman placement which is up to any individual institution. They would like to maximize PT/OT/ST ongoing while here in the hospital. They also request courtesy consult of to follow him for pulmonary as he is known to the family through their protestant. * 02/21/16 Goals remain aggressive. Medical update provided to ex- Leanne at bedside. All questions answered. she has inquired if liquid form of Lactinex can be added. Per review of formulary here, does not appear Lactinex available here as liquid, however may be available from outside if wishes to provide and pharmacy approves this? * CODE STATUSfull code * Symptoms: == Dysphagia--Status post significant CVA, has had PEG tube placed == Dyspnea --Respiratory failure secondary to CVA, status post tracheostomy, pulmonary following; currently no apparent distress/ CXR bibasilar atelectasis, most recent CXR 02/06, unchanged. == Encephalopathy--Significant CVA, "locked-in" state; follow-up MRI with no significant changes; family endorses patient continues to have limited communication via [place] and eye motion == Malnutrition--Status post PEG tube placement. tolerating TF; having bowel movements == depression/anxiety -- At risk for related to "locked in status", communication difficulties, situational, but would likely benefit from anti- depressant. Family reports tearful at times when they talk to him. prev. started on celexa, then d/c per family request. Last week restarted on liquid Paxil per family request. Will cont to evaluate. * Palliative care will continue to follow during hospital course as condition evolves, to assist patient/decision-maker with understanding of medical conditions, weighing benefits/burdens of treatment options, for clarification of goals of treatment. Additionally will assist with any symptoms of palliative concern Time Spent Total Floor Time (mins): 20 Attestation To help prompt me to consider important information that might be impacting today's encounter and assessment, information from prior notes written by myself or my colleagues may have been "brought forward" into today's note. My signature on this note, however, is an attestation that I personally performed the exam, history, and/or decision-making noted today, and, unless otherwise indicated, the interactions with patient, family, and staff as well as the review of records all occurred today. I also attest that the listed assessment and stated plan reflect my best clinical judgment today based on the combination of historical information, prior notes, and today's exam/ interactions. When time spent is documented, it refers only to time spent today by the signer, or if indicated, combined time spent today by collaborating physician/nurse practitioner. Tiara Colin Feb 21, 2016 15:46
[2016-02-21] MEDS: WARFARIN SOD 4 MG TAB PO SCH (15:54)
[2016-02-21] MEDS: RESP: ALBUTEROL 2.5 MG/3 ML NEB (SCH) INH (20:25)
[2016-02-21] MEDS: RESP: ACETYLCYSTEINE 10% 30 ML NEB NEB SCH (20:41)
[2016-02-21] MEDS: INSULIN DETEMIR 100 UNITS/ML VIAL SQ SCH (21:07)
[2016-02-22] VITALS (10 sets, daily range): BP systolic 120–142; BP diastolic 77–92; PULSE 82–106; RESP 17–24; TEMP 96.5–99.3; O2SAT 96–99
[2016-02-22] MEDS: FREE WATER TUBE SCH ×6 (00:43→20:00)
[2016-02-22] MEDS: ACETIC ACID 0.25% SOLN 1000 ML IRR BTL IRRIGATION SCH ×3 (05:10→21:18)
[2016-02-22] MEDS: INSULIN ASPART SUPPLEMENTAL SCALE SQ SCH ×4 (05:10→18:00)
[2016-02-22 06:55] LABS: INTERNATIONAL NORMALIZED RATIO 2.3 RATIO; PROTHROMBIN TIME - PATIENT 25.1 SEC (9.8-11.4)
[2016-02-22] MEDS: RESP: ALBUTEROL 2.5 MG/3 ML NEB (SCH) INH ×4 (08:01→20:05)
[2016-02-22] MEDS: RESP: ACETYLCYSTEINE 10% 30 ML NEB NEB SCH ×4 (08:01→20:05)
[2016-02-22] MEDS: SENNOSIDES SYRUP 8.8 MG/5 ML CUP TUBE SCH (08:47)
[2016-02-22] MEDS: METOPROLOL TARTRATE 50 MG TAB GT SCH ×3 (08:47→17:48)
[2016-02-22] MEDS: levETIRAcetam 500 MG/5 ML UDC TUBE SCH ×2 (08:47→21:17)
[2016-02-22] MEDS: RANITIDINE HCL SYRUP 150 MG/10 ML UDC PO SCH (08:47)
[2016-02-22] MEDS: NYSTATIN 100,000 U/GM PWD 15 GM BTL TOPICAL SCH ×2 (08:47→21:00)
[2016-02-22] MEDS: SODIUM CHLORIDE 0.9% FLUSH 5 ML FLUSH IVF PRN (08:48)
[2016-02-22] MEDS: PARoxetine HCL SUSP 20 MG/10 ML UDC PEG SCH (08:48)
--- NOTE | 2016-02-22 13:44 | HHI.PR ---
Subjective Remarks Patient seen with sister and mother at bedside. The patient is awake, eyes open , nonverbal. Family with no concerns. Vital signs stable. Objective Vitals Vital Signs Date Time Temp Pulse Resp B/P Pulse Ox O2 Delivery O2 Flow Rate FiO2 02/22/16 12:30 T-Piece 4.00 28 Humidified 02/22/16 12:00 97.5 94 24 131/90 96 02/22/16 08:03 98 T-piece 28 02/22/16 08:03 98 T-piece 28 02/22/16 08:00 97.1 101 24 137/92 98 02/22/16 04:00 98.9 106 20 142/86 99 02/22/16 00:29 97.4 82 20 142/80 99 02/21/16 20:25 100 T-piece 6.00 28 02/21/16 20:00 97.6 84 20 146/81 100 02/21/16 17:06 97.6 83 18 136/87 100 02/21/16 16:03 100 T-Piece 4.00 28 Humidified I/O 02/21/16 02/21/16 02/21/16 02/22/16 02/22/16 02/22/16 06:59 14:59 22:59 06:59 14:59 22:59 Intake Total 800 ml 565 ml Output Total 700 ml 0 ml 1800 ml 850 ml Balance -700 ml 800 ml -1235 ml -850 ml Tube Feeding 165 ml Other 800 ml 400 ml Output Urine Total 700 ml 1800 ml 850 ml Tube Feeding Residual Discard 0 ml # Bowel Movements 0 Imaging Last Impressions Chest X-Ray 02/12/16 0000 Signed Impressions: Service Date/Time: Friday, February 12, 2016 13:27 - CONCLUSION: Subsegmental basilar atelectasis similar to prior study. No consolidation and no effusion. Tracheostomy in satisfactory position. 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 Anterior circulation remains intact. Mikie Vargas MD Head CT 01/16/16 0000 Signed Impressions: Service Date/Time: Saturday, January 16, 2016 10:51 - CONCLUSION: No extensive low density in the brainstem colin more prominent in the right the left extending into the right middle cerebellar peduncle consistent with brainstem infarct nonhemorrhagic acute Wellington West MD Brain MRI 01/16/16 0000 Signed Impressions: Service Date/Time: Saturday, January 16, 2016 20:05 - CONCLUSION: Recent infarctions in both occipital lobes and left cerebellum. High flair abnormality within the colin but greater on the right where there is enhancement. This is likely related to progressive acute ischemic changes. Mikie Vargas MD Abdomen X-Ray 01/14/16 0000 Signed Impressions: Service Date/Time: Thursday, January 14, 2016 10:19 - CONCLUSION: Moderate stool; otherwise, negative. 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 No evidence of carotid stenosis. Glen Zamora MD Head/Brain Mag Res Venography 12/22/15 0000 Signed Impressions: Service Date/Time: Tuesday, December 22, 2015 09:22 - CONCLUSION: Normal MRV. Jonel Jones Jr., MD Objective Remarks GENERAL: Well-nourished, well-developed male patient in [facility]. SKIN: Warm and dry. HEAD: Normocephalic. Atraumatic. EYES: Pupils equal and round. No scleral icterus. No injection or drainage. NECK: Supple. Tracheostomy in place. CARDIOVASCULAR: Regular rate and rhythm. S1, S2 noted. No murmur appreciated. RESPIRATORY: No accessory muscle use. Clear to auscultation. Breath sounds equal bilaterally. GASTROINTESTINAL: Abdomen soft, non-tender, nondistended. Normoactive bowel sounds x4. PEG in place. MUSCULOSKELETAL: No obvious deformities. Extremities without clubbing, cyanosis , or edema. 2+ b/l pedal pulses. NEUROLOGICAL: Eyes locked, open. Does not move any extremities. Nonverbal. Procedures PEG and trach Medications and IVs Current Medications Medications (Trade) Dose Ordered Sig/Junior Route Start Time Stop Time Status Last Admin (NS Flush) 2 ml UNSCH PRN IVF 12/21/15 06:00 02/22/16 08:48 (D50w (Vial) Inj) 25 ml UNSCH PRN IV PUSH 12/21/15 13:00 (Glucagon Inj) 1 mg UNSCH PRN OTHER 12/21/15 13:00 (Keppra Liq) 500 mg Q12HR TUBE 12/27/15 21:00 02/22/16 08:47 (Colace Liq) 100 mg Q12HR TUBE 12/27/15 21:00 Hold 01/15/16 09:01 (Tylenol 650 Mg/ 20 ml Liq) 650 mg Q6H PRN TUBE 12/30/15 15:15 02/08/16 16:37 ([place] 5-325 Mg) 1 tab Q6H PRN PO 12/31/15 15:00 02/20/16 20:39 (Sublimaze Inj) 25 mcg Q1H PRN IV PUSH 12/31/15 15:00 Insulin Aspart 1 1 Q6HR SQ 01/04/16 12:00 02/20/16 16:34 (Coumadin Consult Pharmacy) 0 ml @ 0 mls/hr UNSCH XX 01/04/16 12:30 (Mycostatin Powder) 1 applic Q12HR TOPICAL 01/08/16 21:00 02/22/16 08:47 (Lopressor) 75 mg TID GT 01/14/16 09:00 02/22/16 13:20 (Pill Splitter) 1 ea UNSCH PRN OTHER 01/14/16 08:30 (Levemir Inj) 24 units HS SQ 01/15/16 21:00 02/21/16 21:07 (Zantac Liq) 150 mg Q24H PO 01/18/16 09:00 02/22/16 08:47 (Free Water) 400 ml Q4HR TUBE 01/19/16 12:00 02/22/16 12:00 (Acetic Acid 0.25% Irr Btl) 10 ml Q8HR IRRIGATION 02/05/16 16:00 02/22/16 13:20 (Paxil Liq) 20 mg DAILY PEG 02/16/16 09:00 02/22/16 08:48 (Senna Liq) 8.8 mg DAILY TUBE 02/21/16 09:00 02/22/16 08:47 (Coumadin) 3 mg DAILY@16 PO 02/22/16 16:00 A/P Problem List: (1) CVA (cerebral vascular accident) Status: Acute (2) A-fib Status: Chronic (3) DM (diabetes mellitus) Status: Chronic Assessment and Plan 60-year-old male with: CVA (cerebral vascular accident): 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 Significant residual cognitive deficit. Non verbal. 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 -Continue Keppra and Coumadin- Palliative care following. Monitor on Keppra. On Coumadin with therapeutic INR. GI/Nutrition: Had some issues with PEG tube clogged presumable from Lactinex. This was exchanged by GI at bedside and Lactinex was discontinued. Nepro tube feedings as recommended by dietitian for sodium content. -Continue Nepro at 55 cc/hr per dietitian recommendations. Respiratory failure: Secondary to CVA. Patient is status post tracheostomy. Continue pulmonary toilet and neb treatments as needed. Pulmonary following. - Occasional Blood-tinged secretion around the trach. Trach care per pulmonology. Continue to monitor Depression: Discussed with palliative care Dr. Avilez. Patient started on antidepressives. A-fib: continue Lopressor, warfarin with INR/PT monitoring. Echocardiogram completed in November shows preserved EF. INR therapeutic, pharmacy following. UTI: Urine culture grew Klebsiella. Patient completed ceftriaxone course. Exchanged Arevalo catheter ordered 02/15. Coccyx pressure ulcer: Plastic surgery was reconsulted. Plastic surgery provided recommendations. History of Non-Hodgkin lymphoma: s/p brain biopsy on December 13, by Neurosurgery, Dr. Marin, Pathology consistent with acute infarct without evidence of lymphoma -Seen by Oncology, Dr. Whyte, who has signed off for current admission as there are no active oncology issues DM: Hemoglobin A1c is 7.0. Continue Levemir with sliding scale insulin- monitor and adjust the regimen as needed. DVT prophylaxis: Full anticoagulation with Coumadin. INR therapeutic Discharge Planning Discharge planning per case management, needs placement, SSI pending. Attending Statement Patient seen by midlevel provider. I agree with above. Problem Qualifiers (1) DM (diabetes mellitus): Qualified Code: E11.9 - Type 2 diabetes mellitus without complications Ernestine Townsend PA-C Feb 22, 2016 13:44 Uziel Umaña MD Feb 23, 2016 09:31
[2016-02-22] MEDS: INSULIN DETEMIR 100 UNITS/ML VIAL SQ SCH (21:00)
[2016-02-23] VITALS (9 sets, daily range): BP systolic 114–144; BP diastolic 67–88; PULSE 83–110; RESP 18–21; TEMP 96.3–98.9; O2SAT 97–99
[2016-02-23] MEDS: FREE WATER TUBE SCH ×6 (04:00→20:00)
[2016-02-23] MEDS: ACETIC ACID 0.25% SOLN 1000 ML IRR BTL IRRIGATION SCH ×3 (06:00→21:19)
[2016-02-23] MEDS: INSULIN ASPART SUPPLEMENTAL SCALE SQ SCH ×4 (06:00→18:00)
[2016-02-23] MEDS: RANITIDINE HCL SYRUP 150 MG/10 ML UDC PO SCH (07:46)
[2016-02-23] MEDS: levETIRAcetam 500 MG/5 ML UDC TUBE SCH ×2 (07:46→21:19)
[2016-02-23] MEDS: SENNOSIDES SYRUP 8.8 MG/5 ML CUP TUBE SCH (07:46)
[2016-02-23] MEDS: METOPROLOL TARTRATE 50 MG TAB GT SCH ×3 (07:46→17:47)
[2016-02-23] MEDS: PARoxetine HCL SUSP 20 MG/10 ML UDC PEG SCH (07:47)
[2016-02-23] MEDS: NYSTATIN 100,000 U/GM PWD 15 GM BTL TOPICAL SCH ×2 (07:57→21:00)
[2016-02-23 08:20] LABS: INTERNATIONAL NORMALIZED RATIO 2.5 RATIO; PROTHROMBIN TIME - PATIENT 27.1 SEC (9.8-11.4)
[2016-02-23] MEDS: RESP: ALBUTEROL 2.5 MG/3 ML NEB (SCH) INH ×4 (08:24→19:25)
[2016-02-23] MEDS: RESP: ACETYLCYSTEINE 10% 30 ML NEB NEB SCH ×3 (08:25→16:32)
--- NOTE | 2016-02-23 11:29 | HHI.PR ---
Subjective Remarks Patient seen with sister and mother at bedside. No complaints from the family. The patient is sleeping currently, listening to music. Nonverbal. Vital signs stable. Objective Vitals Vital Signs Date Time Temp Pulse Resp B/P Pulse Ox O2 Delivery O2 Flow Rate FiO2 02/23/16 08:24 97 T-piece 28 02/23/16 08:24 97 T-piece 28 02/23/16 08:23 98.7 103 21 135/88 98 02/23/16 08:10 T-Piece 6.00 28 02/23/16 05:45 98.9 110 20 129/75 97 02/22/16 22:40 98.9 89 20 131/85 96 02/22/16 21:15 T-Piece 6.00 02/22/16 21:00 99.3 83 17 134/77 97 02/22/16 16:52 99 T-piece 6.00 02/22/16 16:28 96.5 84 24 120/79 99 02/22/16 14:13 98 02/22/16 12:30 T-Piece 4.00 02/22/16 12:00 97.5 94 24 131/90 96 I/O 02/22/16 02/22/16 02/22/16 02/23/16 02/23/16 02/23/16 07:00 15:00 23:00 07:00 15:00 23:00 Intake Total 0 ml 0 ml Output Total 850 ml 1200 ml 800 ml 700 ml Balance -850 ml -1200 ml -800 ml -700 ml Intake Oral 0 ml 0 ml Output Urine Total 850 ml 1200 ml 800 ml 700 ml # Bowel Movements 0 0 Imaging Last Impressions Chest X-Ray 02/12/16 0000 Signed Impressions: Service Date/Time: Friday, February 12, 2016 13:27 - CONCLUSION: Subsegmental basilar atelectasis similar to prior study. No consolidation and no effusion. Tracheostomy in satisfactory position. 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 Anterior circulation remains intact. Mikie Vargas MD Head CT 01/16/16 0000 Signed Impressions: Service Date/Time: Saturday, January 16, 2016 10:51 - CONCLUSION: No extensive low density in the brainstem colin more prominent in the right the left extending into the right middle cerebellar peduncle consistent with brainstem infarct nonhemorrhagic acute Wellington West MD Brain MRI 01/16/16 0000 Signed Impressions: Service Date/Time: Saturday, January 16, 2016 20:05 - CONCLUSION: Recent infarctions in both occipital lobes and left cerebellum. High flair abnormality within the colin but greater on the right where there is enhancement. This is likely related to progressive acute ischemic changes. Mikie Vargas MD Abdomen X-Ray 01/14/16 0000 Signed Impressions: Service Date/Time: Thursday, January 14, 2016 10:19 - CONCLUSION: Moderate stool; otherwise, negative. 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 No evidence of carotid stenosis. Glen Zamora MD Head/Brain Mag Res Venography 12/22/15 0000 Signed Impressions: Service Date/Time: Tuesday, December 22, 2015 09:22 - CONCLUSION: Normal MRV. Jonel Jones Jr., MD Objective Remarks GENERAL: Well-nourished, well-developed male patient in [facility]. SKIN: Warm and dry. HEAD: Normocephalic. Atraumatic. EYES: Pupils equal and round. No scleral icterus. No injection or drainage. NECK: Supple. Tracheostomy in place. CARDIOVASCULAR: Regular rate and rhythm. S1, S2 noted. No murmur appreciated. RESPIRATORY: No accessory muscle use. Clear to auscultation. Breath sounds equal bilaterally. GASTROINTESTINAL: Abdomen soft, non-tender, nondistended. Normoactive bowel sounds x4. PEG in place. MUSCULOSKELETAL: No obvious deformities. Extremities without clubbing, cyanosis , or edema. 2+ b/l pedal pulses. NEUROLOGICAL: Eyes locked, open. Does not move any extremities. Nonverbal. Procedures 01/02/16 PEG placement 01/02/16 tracheostomy Medications and IVs Current Medications Medications (Trade) Dose Ordered Sig/Junior Route Start Time Stop Time Status Last Admin (NS Flush) 2 ml UNSCH PRN IVF 6/2/16 06:00 02/22/16 08:48 (D50w (Vial) Inj) 25 ml UNSCH PRN IV PUSH 12/21/15 13:00 (Glucagon Inj) 1 mg UNSCH PRN OTHER 12/21/15 13:00 (Keppra Liq) 500 mg Q12HR TUBE 12/27/15 21:00 02/23/16 07:46 (Colace Liq) 100 mg Q12HR TUBE 12/27/15 21:00 Hold 01/15/16 09:01 (Tylenol 650 Mg/ 20 ml Liq) 650 mg Q6H PRN TUBE 12/30/15 15:15 02/08/16 16:37 ([place] 5-325 Mg) 1 tab Q6H PRN PO 12/31/15 15:00 02/20/16 20:39 (Sublimaze Inj) 25 mcg Q1H PRN IV PUSH 12/31/15 15:00 Insulin Aspart 1 1 Q6HR SQ 01/04/16 12:00 02/20/16 16:34 (Coumadin Consult Pharmacy) 0 ml @ 0 mls/hr UNSCH XX 01/04/16 12:30 (Mycostatin Powder) 1 applic Q12HR TOPICAL 01/08/16 21:00 02/23/16 07:57 (Lopressor) 75 mg TID GT 01/14/16 09:00 02/23/16 07:46 (Pill Splitter) 1 ea UNSCH PRN OTHER 01/14/16 08:30 (Levemir Inj) 24 units HS SQ 01/15/16 21:00 02/22/16 21:00 (Zantac Liq) 150 mg Q24H PO 01/18/16 09:00 02/23/16 07:46 (Free Water) 400 ml Q4HR TUBE 01/19/16 12:00 02/23/16 07:47 (Acetic Acid 0.25% Irr Btl) 10 ml Q8HR IRRIGATION 02/05/16 16:00 02/23/16 06:00 (Paxil Liq) 20 mg DAILY PEG 02/16/16 09:00 02/23/16 07:47 (Senna Liq) 8.8 mg DAILY TUBE 02/21/16 09:00 02/23/16 07:46 (Coumadin) 3 mg DAILY@16 PO 02/24/16 16:00 (Coumadin) 2 mg ONCE PO 02/23/16 16:00 02/23/16 21:00 A/P Problem List: (1) CVA (cerebral vascular accident) Status: Acute (2) A-fib Status: Chronic (3) DM (diabetes mellitus) Status: Chronic Assessment and Plan 60-year-old male with: CVA (cerebral vascular accident): 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 Significant residual cognitive deficit. Non verbal. 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 -Continue Keppra and Coumadin- Palliative care following. Monitor on Keppra. On Coumadin with therapeutic INR. GI/Nutrition: Had some issues with PEG tube clogged presumable from Lactinex. This was exchanged by GI at bedside and Lactinex was discontinued. Nepro tube feedings as recommended by dietitian for sodium content. -Continue Nepro at 55 cc/hr per dietitian recommendations. Respiratory failure: Secondary to CVA. Patient is status post tracheostomy. Continue pulmonary toilet and neb treatments as needed. Pulmonary following. - Occasional Blood-tinged secretion around the trach. Trach care per pulmonology. Continue to monitor Depression: Discussed with palliative care Dr. Avilez. Patient started on antidepressives. A-fib: continue Lopressor, warfarin with INR/PT monitoring. Echocardiogram completed in November shows preserved EF. INR therapeutic, pharmacy following. UTI: Urine culture grew Klebsiella. Patient completed ceftriaxone course. Exchanged Arevalo catheter ordered 02/15. Coccyx pressure ulcer: Plastic surgery was reconsulted. Plastic surgery provided recommendations. History of Non-Hodgkin lymphoma: s/p brain biopsy on December 13, by Neurosurgery, Dr. Marin, Pathology consistent with acute infarct without evidence of lymphoma -Seen by Oncology, Dr. Whyte, who has signed off for current admission as there are no active oncology issues DM: Hemoglobin A1c is 7.0. Continue Levemir with sliding scale insulin- monitor and adjust the regimen as needed. DVT prophylaxis: Full anticoagulation with Coumadin. INR therapeutic Discharge Planning Discharge planning per case management, needs placement, SSI pending. Attending Statement Patient seen by midlevel provider. I agree with above. Problem Qualifiers (1) DM (diabetes mellitus): Qualified Code: E11.9 - Type 2 diabetes mellitus without complications Ernestine Townsend PA-C Feb 23, 2016 11:29 Uziel Umaña MD Feb 24, 2016 11:09
[2016-02-23] MEDS: INSULIN DETEMIR 100 UNITS/ML VIAL SQ SCH (21:00)
[2016-02-24] VITALS (9 sets, daily range): BP systolic 123–140; BP diastolic 71–88; PULSE 80–104; RESP 19–20; TEMP 98–99.8; O2SAT 94–100
[2016-02-24] MEDS: FREE WATER TUBE SCH ×6 (04:00→20:41)
[2016-02-24] MEDS: INSULIN ASPART SUPPLEMENTAL SCALE SQ SCH ×4 (06:00→16:38)
[2016-02-24] MEDS: ACETIC ACID 0.25% SOLN 1000 ML IRR BTL IRRIGATION SCH ×3 (06:00→20:41)
[2016-02-24] MEDS: RESP: ALBUTEROL 2.5 MG/3 ML NEB (SCH) INH ×4 (07:33→21:07)
[2016-02-24] MEDS: SENNOSIDES SYRUP 8.8 MG/5 ML CUP TUBE SCH (09:09)
[2016-02-24] MEDS: levETIRAcetam 500 MG/5 ML UDC TUBE SCH ×2 (09:09→20:35)
[2016-02-24] MEDS: RANITIDINE HCL SYRUP 150 MG/10 ML UDC PO SCH (09:09)
[2016-02-24] MEDS: PARoxetine HCL SUSP 20 MG/10 ML UDC PEG SCH (09:10)
[2016-02-24] MEDS: METOPROLOL TARTRATE 50 MG TAB GT SCH ×3 (09:10→17:28)
[2016-02-24] MEDS: NYSTATIN 100,000 U/GM PWD 15 GM BTL TOPICAL SCH ×2 (09:10→20:41)
[2016-02-24 09:45] LABS: INTERNATIONAL NORMALIZED RATIO 2.3 RATIO; PROTHROMBIN TIME - PATIENT 25.1 SEC (9.8-11.4)
--- NOTE | 2016-02-24 13:45 | HHI.PR ---
Subjective Remarks Accompanied by family in room. Patient continues to be nonverbal, is able to follow simple commands to blink eyes, but remains nonverbal. Not able to nod or shake head appropriately to questions. Does not move extremities to command. Does not appear in distress. Objective Vitals Vital Signs Date Time Temp Pulse Resp B/P Pulse Ox O2 Delivery O2 Flow Rate FiO2 02/24/16 12:16 98.2 80 20 124/78 94 02/24/16 11:38 96 02/24/16 09:23 98 T-Piece 6.00 28 Humidified 02/24/16 07:57 99.8 104 20 136/85 96 136/85 02/24/16 07:36 100 T-piece 5.00 28 02/24/16 07:36 100 T-piece 5.00 28 02/24/16 06:00 98.8 94 20 134/88 98 02/24/16 00:00 98.0 89 19 136/80 97 02/23/16 22:00 98.5 86 18 144/84 97 02/23/16 19:25 99 Trach Collar 6.00 28 02/23/16 19:25 99 Trach Collar 6.00 28 02/23/16 19:15 T-Piece 6.00 28 Humidified 02/23/16 19:00 87 02/23/16 16:29 92 02/23/16 16:00 97.3 83 20 124/73 99 I/O 02/23/16 02/23/16 02/23/16 02/24/16 02/24/16 02/24/16 07:00 15:00 23:00 07:00 15:00 23:00 Intake Total 0 ml 0 ml 0 ml 800 ml Output Total 700 ml 750 ml 600 ml 1000 ml Balance -700 ml -750 ml -600 ml -1000 ml 800 ml Intake Oral 0 ml 0 ml 0 ml Other 800 ml Output Urine Total 700 ml 750 ml 600 ml 1000 ml # Bowel Movements 0 1 0 0 Objective Remarks GENERAL: Elderly patient, in no acute distress. SKIN: Warm and dry. HEAD: Normocephalic. Atraumatic. EYES: No scleral icterus. No injection or drainage. NECK: Supple, trachea midline. No JVD. Tracheostomy in place CARDIOVASCULAR: Regular rate and rhythm without murmurs, gallops, or rubs. RESPIRATORY: Breath sounds equal bilaterally. No accessory muscle use. GASTROINTESTINAL: Abdomen soft, non-tender, nondistended. Normoactive bowel sounds 4. PEG in place. MUSCULOSKELETAL: Extremities without clubbing, cyanosis, or edema. NEUROLOGICAL: Follows simple commands with eyes only. Does not spontaneously move extremities, Nonverbal. 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 Significant residual cognitive deficit. -Nonverbal at this time; appears to be in a locked in state. -Continue Keppra and Coumadin- Palliative care following. Monitor Keppra. INR 2.3. GI/Nutrition: Previous PEG tube exchanged by GI at bedside. Appreciate dietary recommendations; Nepro tube feedings for sodium content to continue at 55 mL, hour. Respiratory failure: Secondary to CVA. Patient is status post tracheostomy. Continue pulmonary toilet and neb treatments as needed. Pulmonary following. -No reported Blood-tinged secretion around the trach. Trach care per pulmonology. Continue to monitor Depression: Discussed with palliative care Dr. Avilez. Family refusing antidepressives at this time. A-fib: continue Lopressor, warfarin with INR/PT monitoring. Echocardiogram completed in November shows preserved EF. INR is 2.3 today. UTI: Urine culture grew Klebsiella. Patient completed ceftriaxone course. Exchange Arevalo catheter ordered 03/18. Coccyx pressure ulcer: Appreciate plastic surgery recommendations. History of Non-Hodgkin lymphoma: s/p brain biopsy on December 13, by Neurosurgery, Dr. Marin, Pathology consistent with acute infarct without evidence of lymphoma -Seen by Oncology, Dr. Whyte, who has signed off for current admission. DM: Hemoglobin A1c is 7.0. Continue Levemir with sliding scale insulin- monitor and adjust the regimen as needed. Blood sugar 128 this morning. DVT prophylaxis: Full anticoagulation with Coumadin. INR therapeutic Care was discussed with patient, family, RN, Dr. Umaña. Attending Statement Patient seen by midlevel provider. I agree with above. Problem Qualifiers (1) DM (diabetes mellitus): Qualified Code: E11.9 - Type 2 diabetes mellitus without complications Melly Collins Feb 24, 2016 13:45 Uziel Umaña MD Feb 24, 2016 21:29
[2016-02-24] MEDS: WARFARIN SOD 3 MG TAB PO SCH (16:08)
[2016-02-24] MEDS: INSULIN DETEMIR 100 UNITS/ML VIAL SQ SCH (20:36)
[2016-02-25] VITALS (9 sets, daily range): BP systolic 128–161; BP diastolic 73–90; PULSE 84–120; RESP 16–20; TEMP 96.3–99; O2SAT 96–100
[2016-02-25] MEDS: FREE WATER TUBE SCH ×7 (00:44→23:43)
[2016-02-25] MEDS: INSULIN ASPART SUPPLEMENTAL SCALE SQ SCH ×5 (05:43→23:42)
[2016-02-25] MEDS: ACETIC ACID 0.25% SOLN 1000 ML IRR BTL IRRIGATION SCH ×3 (05:44→20:50)
[2016-02-25] MEDS: RANITIDINE HCL SYRUP 150 MG/10 ML UDC PO SCH (07:33)
[2016-02-25] MEDS: PARoxetine HCL SUSP 20 MG/10 ML UDC PEG SCH (07:33)
[2016-02-25] MEDS: METOPROLOL TARTRATE 50 MG TAB GT SCH ×3 (07:33→17:52)
[2016-02-25] MEDS: levETIRAcetam 500 MG/5 ML UDC TUBE SCH ×2 (07:33→20:50)
[2016-02-25] MEDS: SENNOSIDES SYRUP 8.8 MG/5 ML CUP TUBE SCH (07:33)
[2016-02-25] MEDS: NYSTATIN 100,000 U/GM PWD 15 GM BTL TOPICAL SCH ×2 (07:34→20:50)
[2016-02-25] MEDS: RESP: ALBUTEROL 2.5 MG/3 ML NEB (SCH) INH ×4 (08:56→19:51)
[2016-02-25 09:31] LABS: INTERNATIONAL NORMALIZED RATIO 2.2 RATIO; PROTHROMBIN TIME - PATIENT 24.4 SEC (9.8-11.4)
--- NOTE | 2016-02-25 10:45 | HHI.PR ---
Subjective Remarks Accompanied by and Mother in room. Patient continues to be nonverbal, he is able to follow simple commands to blink eyes and open them wide. Not able to nod or shake head appropriately to questions. Does not move extremities to command. is concerned for daytime sleepiness, and is attributing this to Paxil- she would like it retimed to an evening dose. Also is concerned for patient's non-Hodgkin's lymphoma, patient's CBC is stable at this time. Does not appear in distress. Objective Vitals Vital Signs Date Time Temp Pulse Resp B/P Pulse Ox O2 Delivery O2 Flow Rate FiO2 02/25/16 08:58 96.6 120 18 143/85 98 02/25/16 08:56 100 T-piece 02/25/16 08:37 114 02/25/16 08:21 100 T-Piece 4.00 02/25/16 04:00 96.3 107 20 155/90 99 02/25/16 00:00 99.0 97 20 133/79 96 02/24/16 21:05 98 T-piece 02/24/16 20:00 99.5 86 20 140/80 99 02/24/16 16:54 98.5 89 20 123/71 97 02/24/16 16:46 97 T-Piece 4.00 28 02/24/16 12:16 98.2 80 20 124/78 94 02/24/16 11:38 96 I/O 02/24/16 02/24/16 02/24/16 02/25/16 02/25/16 02/25/16 07:00 15:00 23:00 07:00 15:00 23:00 Intake Total 0 ml 800 ml 950 ml 400 ml Output Total 1000 ml 1300 ml 1250 ml Balance -1000 ml 800 ml -350 ml -1250 ml 400 ml Intake Oral 0 ml Tube Feeding 550 ml Other 800 ml 400 ml 400 ml Output Urine Total 1000 ml 1300 ml 1250 ml # Bowel Movements 0 1 0 Imaging Last Impressions Chest X-Ray 02/12/16 0000 Signed Impressions: Service Date/Time: Friday, February 12, 2016 13:27 - CONCLUSION: Subsegmental basilar atelectasis similar to prior study. No consolidation and no effusion. Tracheostomy in satisfactory position. 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 Anterior circulation remains intact. Mikie Vargas MD Head CT 01/16/16 0000 Signed Impressions: Service Date/Time: Saturday, January 16, 2016 10:51 - CONCLUSION: No extensive low density in the brainstem colin more prominent in the right the left extending into the right middle cerebellar peduncle consistent with brainstem infarct nonhemorrhagic acute Wellington West MD Brain MRI 01/16/16 0000 Signed Impressions: Service Date/Time: Saturday, January 16, 2016 20:05 - CONCLUSION: Recent infarctions in both occipital lobes and left cerebellum. High flair abnormality within the colin but greater on the right where there is enhancement. This is likely related to progressive acute ischemic changes. Mikie Vargas MD Abdomen X-Ray 01/14/16 0000 Signed Impressions: Service Date/Time: Thursday, January 14, 2016 10:19 - CONCLUSION: Moderate stool; otherwise, negative. 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 No evidence of carotid stenosis. Glen Zamora MD Head/Brain Mag Res Venography 12/22/15 0000 Signed Impressions: Service Date/Time: Tuesday, December 22, 2015 09:22 - CONCLUSION: Normal MRV. Jonel Jones Jr., MD Objective Remarks GENERAL: Elderly patient, in no acute distress. SKIN: Warm and dry. HEAD: Normocephalic. Atraumatic. EYES: No scleral icterus. No injection or drainage. NECK: Supple, trachea midline. No JVD. Tracheostomy in place CARDIOVASCULAR: Regular rate and rhythm without murmurs, gallops, or rubs. RESPIRATORY: Breath sounds equal bilaterally. No accessory muscle use. GASTROINTESTINAL: Abdomen soft, non-tender, nondistended. Normoactive bowel sounds 4. PEG in place. MUSCULOSKELETAL: Extremities without clubbing, cyanosis, or edema. NEUROLOGICAL: Follows simple commands with eyes only. Does not spontaneously move extremities, Nonverbal. 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 Significant residual cognitive deficit. -Nonverbal at this time; appears to be in a locked in state. -Continue Keppra and Coumadin- Palliative care following. Monitor Keppra. INR 2.2. GI/Nutrition: Previous PEG tube exchanged by GI at bedside. Appreciate dietary recommendations; Nepro tube feedings for sodium content to continue at 55 mL, hour. Respiratory failure: Secondary to CVA. Patient is status post tracheostomy. Continue pulmonary toilet and neb treatments as needed. Pulmonary following. -No reported Blood-tinged secretion around the trach. Trach care per pulmonology. Continue to monitor Depression: Discussed with palliative care Dr. Avilez. Family requested nighttime timing of Paxil. A-fib: continue Lopressor, warfarin with INR/PT monitoring. Echocardiogram completed in November shows preserved EF. INR is 2.3 today. UTI: Urine culture grew Klebsiella. Patient completed ceftriaxone course. Exchange Arevalo catheter ordered 03/18. Coccyx pressure ulcer: Appreciate plastic surgery recommendations. History of Non-Hodgkin lymphoma: s/p brain biopsy on December 13, by Neurosurgery, Dr. Marin, Pathology consistent with acute infarct without evidence of lymphoma -Seen by Oncology, Dr. Whyte, who has signed off for current admission. DM: Hemoglobin A1c is 7.0. Continue Levemir with sliding scale insulin- monitor and adjust the regimen as needed. Blood sugar 139 this morning. Intermittent low grade fever- Tmax 99.0 this morning, decreased 96.3 axillary. Patient is clinically stable at this time. We'll continue to monitor. DVT prophylaxis: Full anticoagulation with Coumadin. INR therapeutic CBC BMP in a.m. Care was discussed with patient, family, RN, Dr. Umaña. Attending Statement Patient seen by midlevel provider. I agree with above. Problem Qualifiers (1) DM (diabetes mellitus): Qualified Code: E11.9 - Type 2 diabetes mellitus without complications Melly Collins Feb 25, 2016 10:45 Uziel Umaña MD Feb 25, 2016 20:48
[2016-02-25] MEDS: ACETAMINOPHEN/HYDROcodone 325 MG/5 MG TAB PO PRN (14:45)
[2016-02-25] MEDS: WARFARIN SOD 3 MG TAB PO SCH (14:45)
[2016-02-25] MEDS: INSULIN DETEMIR 100 UNITS/ML VIAL SQ SCH (20:50)
[2016-02-26] VITALS (8 sets, daily range): BP systolic 112–150; BP diastolic 68–84; PULSE 88–112; RESP 14–20; TEMP 96.1–98.8; O2SAT 95–99
[2016-02-26] MEDS: INSULIN ASPART SUPPLEMENTAL SCALE SQ SCH ×3 (05:50→18:15)
[2016-02-26] MEDS: FREE WATER TUBE SCH ×5 (05:50→22:01)
[2016-02-26] MEDS: ACETAMINOPHEN/HYDROcodone 325 MG/5 MG TAB PO PRN (05:51)
[2016-02-26] MEDS: ACETIC ACID 0.25% SOLN 1000 ML IRR BTL IRRIGATION SCH ×3 (05:51→21:48)
[2016-02-26 07:07] LABS: AUTOMATED NEUTROPHIL # 4.6 TH/MM3 (1.8-7.7); BASOPHIL # 0.1 TH/MM3 (0-0.2); EOSINOPHIL # 0.4 TH/MM3 (0-0.4); EOSINOPHIL % 5.3 % (0.0-4.0); HEMATOCRIT 33.5 % (39.0-51.0); HEMO FLAGS DIFF FINAL; LYMPH % 21.4 % (9.0-44.0); LYMPHOCYTE # 1.5 TH/MM3 (1.0-4.8); MEAN CELL VOLUME 78.3 FL (80.0-100.0); MEAN CORPUSCULAR HEMOGLOBIN 25.1 PG (27.0-34.0); NEUT % 64.3 % (16.0-70.0); PLATELET COUNT 189 TH/MM3 (150-450); RED BLOOD COUNT 4.28 MIL/MM3 (4.50-5.90); RED CELL DISTRIBUTION WIDTH 17.5 % (11.6-17.2); WHITE BLOOD COUNT 7.1 TH/MM3 (4.0-11.0)
[2016-02-26 07:13] LABS: INTERNATIONAL NORMALIZED RATIO 2.1 RATIO; PROTHROMBIN TIME - PATIENT 22.6 SEC (9.8-11.4)
[2016-02-26 07:33] LABS: BICARBONATE 27.2 MEQ/L (21.0-32.0); POTASSIUM 3.8 MEQ/L (3.5-5.1)
[2016-02-26] MEDS: levETIRAcetam 500 MG/5 ML UDC TUBE SCH ×2 (09:16→21:46)
[2016-02-26] MEDS: RANITIDINE HCL SYRUP 150 MG/10 ML UDC PO SCH (09:16)
[2016-02-26] MEDS: SENNOSIDES SYRUP 8.8 MG/5 ML CUP TUBE SCH (09:16)
[2016-02-26] MEDS: NYSTATIN 100,000 U/GM PWD 15 GM BTL TOPICAL SCH ×2 (09:17→21:48)
[2016-02-26] MEDS: METOPROLOL TARTRATE 50 MG TAB GT SCH ×3 (09:17→18:14)
--- NOTE | 2016-02-26 09:29 | HHI.PR ---
Subjective Remarks No acute events overnight. He continues to follow simple commands with his eyes. Is not reporting pain at this time. updated on lab work. Afebrile. Does not appear in acute distress. Objective Vitals Vital Signs Date Time Temp Pulse Resp B/P Pulse Ox O2 Delivery O2 Flow Rate FiO2 02/26/16 08:28 97 T-piece 28 02/26/16 08:28 97 T-piece 28 02/26/16 05:42 98.8 108 18 150/84 97 02/26/16 00:37 96.3 90 17 120/73 96 02/25/16 21:02 96.4 84 17 128/73 97 02/25/16 19:54 98 T-piece 6.00 28 02/25/16 19:54 98 T-piece 6.00 28 02/25/16 16:38 97.9 87 16 132/77 97 02/25/16 13:45 98 T-Piece 4.00 28 02/25/16 13:04 97.1 98 17 161/85 96 I/O 02/25/16 02/25/16 02/25/16 02/26/16 02/26/16 02/26/16 07:00 15:00 23:00 07:00 15:00 23:00 Intake Total 800 ml 1845 ml Output Total 1250 ml 800 ml 1000 ml Balance -1250 ml 0 ml 1845 ml -1000 ml Tube Feeding 1045 ml Other 800 ml 800 ml Output Urine Total 1250 ml 800 ml 1000 ml # Bowel Movements 0 0 Result Diagram: 02/26/16 0626 02/26/16 0626 Imaging Last Impressions Chest X-Ray 02/12/16 0000 Signed Impressions: Service Date/Time: Friday, February 12, 2016 13:27 - CONCLUSION: Subsegmental basilar atelectasis similar to prior study. No consolidation and no effusion. Tracheostomy in satisfactory position. 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 Anterior circulation remains intact. Mikie Vargas MD Head CT 01/16/16 0000 Signed Impressions: Service Date/Time: Saturday, January 16, 2016 10:51 - CONCLUSION: No extensive low density in the brainstem colin more prominent in the right the left extending into the right middle cerebellar peduncle consistent with brainstem infarct nonhemorrhagic acute Wellington West MD Brain MRI 01/16/16 0000 Signed Impressions: Service Date/Time: Saturday, January 16, 2016 20:05 - CONCLUSION: Recent infarctions in both occipital lobes and left cerebellum. High flair abnormality within the colin but greater on the right where there is enhancement. This is likely related to progressive acute ischemic changes. Mikie Vargas MD Abdomen X-Ray 01/14/16 0000 Signed Impressions: Service Date/Time: Thursday, January 14, 2016 10:19 - CONCLUSION: Moderate stool; otherwise, negative. 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 No evidence of carotid stenosis. Glen Zamora MD Head/Brain Mag Res Venography 12/22/15 0000 Signed Impressions: Service Date/Time: Tuesday, December 22, 2015 09:22 - CONCLUSION: Normal MRV. Jonel Jones Jr., MD Objective Remarks GENERAL: Elderly patient, in no acute distress. SKIN: Warm and dry. HEAD: Normocephalic. Atraumatic. EYES: No scleral icterus. No injection or drainage. NECK: Supple, trachea midline. No JVD. Tracheostomy in place CARDIOVASCULAR: Regular rate and rhythm without murmurs, gallops, or rubs. RESPIRATORY: Breath sounds equal bilaterally. No accessory muscle use. GASTROINTESTINAL: Abdomen soft, non-tender, nondistended. Normoactive bowel sounds 4. PEG in place. MUSCULOSKELETAL: Extremities without clubbing, cyanosis, or edema. NEUROLOGICAL: Follows simple commands with eyes only. Does not spontaneously move extremities, Nonverbal. 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 Significant residual cognitive deficit. -Nonverbal at this time; appears to be in a locked in state. -Continue Keppra and Coumadin- Palliative care following. Monitor Keppra. INR 2.2. GI/Nutrition: Previous PEG tube exchanged by GI at bedside. Appreciate dietary recommendations; Nepro tube feedings for sodium content to continue at 55 mL, hour. Respiratory failure: Secondary to CVA. Patient is status post tracheostomy. Continue pulmonary toilet and neb treatments as needed. Pulmonary following. -No reported Blood-tinged secretion around the trach. Trach care per pulmonology. Continue to monitor Depression: Discussed with palliative care Dr. Avilez. Family requested nighttime timing of Paxil. A-fib: continue Lopressor, warfarin with INR/PT monitoring. Echocardiogram completed in November shows preserved EF. INR is 2.3 today. UTI: Urine culture grew Klebsiella. Patient completed ceftriaxone course. Exchange Arevalo catheter ordered 03/18. Coccyx pressure ulcer: Appreciate plastic surgery recommendations. History of Non-Hodgkin lymphoma: s/p brain biopsy on December 13, by Neurosurgery, Dr. Marin, Pathology consistent with acute infarct without evidence of lymphoma -Seen by Oncology, Dr. Whyte, who has signed off for current admission. DM: Hemoglobin A1c is 7.0. Continue Levemir with sliding scale insulin- monitor and adjust the regimen as needed. Blood sugar 139 this morning. Intermittent low grade fever- Tmax 98.8 this morning, vital signs stable. Patient is clinically stable at this time. We'll continue to monitor. DVT prophylaxis: Full anticoagulation with Coumadin. INR therapeutic CBC BMP stable trends. Monitor as needed Care was discussed with patient, family, RN, Dr. Lindo Problem Qualifiers (1) DM (diabetes mellitus): Qualified Code: E11.9 - Type 2 diabetes mellitus without complications Melly Collins Feb 26, 2016 09:29
[2016-02-26] MEDS: WARFARIN SOD 3 MG TAB PO SCH (18:14)
[2016-02-26] MEDS: PARoxetine HCL SUSP 20 MG/10 ML UDC PEG SCH (18:15)
[2016-02-26] MEDS: INSULIN DETEMIR 100 UNITS/ML VIAL SQ SCH (22:01)
[2016-02-27] VITALS: BP 128/76; PULSE 99; RESP 20; TEMP 98.4; O2SAT 96
[2016-02-27] MEDS: INSULIN ASPART SUPPLEMENTAL SCALE SQ SCH ×4 (00:02→17:06)
[2016-02-27] MEDS: FREE WATER TUBE SCH ×6 (00:02→20:00)
[2016-02-27 04:00] VITALS: BP 139/86; PULSE 109; RESP 20; TEMP 97.8; O2SAT 99
[2016-02-27] MEDS: ACETIC ACID 0.25% SOLN 1000 ML IRR BTL IRRIGATION SCH ×3 (04:29→21:04)
[2016-02-27] MEDS: RANITIDINE HCL SYRUP 150 MG/10 ML UDC PO SCH (07:34)
[2016-02-27] MEDS: levETIRAcetam 500 MG/5 ML UDC TUBE SCH ×2 (07:34→21:02)
[2016-02-27] MEDS: SENNOSIDES SYRUP 8.8 MG/5 ML CUP TUBE SCH (07:34)
[2016-02-27] MEDS: NYSTATIN 100,000 U/GM PWD 15 GM BTL TOPICAL SCH ×2 (07:35→21:04)
[2016-02-27] MEDS: METOPROLOL TARTRATE 50 MG TAB GT SCH ×3 (07:35→16:52)
[2016-02-27 08:00] VITALS: BP 139/86; PULSE 112; RESP 14; TEMP 98.4; O2SAT 97
--- NOTE | 2016-02-27 11:38 | HHI.PR ---
Subjective Remarks Patient seen and evaluated in follow-up for encephalopathy secondary to stroke.. Continuing with respiratory care for trach. Family in room. Plan of care discussed with family and with speech therapy in room Objective Vitals Vital Signs Date Time Temp Pulse Resp B/P Pulse Ox O2 Delivery O2 Flow Rate FiO2 02/27/16 08:34 100 T-Piece 4.00 28 Humidified 02/27/16 04:00 97.8 109 20 139/86 99 02/27/16 00:00 98.4 99 20 128/76 96 02/26/16 20:23 98.1 88 20 112/73 99 02/26/16 20:05 99 T-piece 6.00 28 02/26/16 20:05 99 T-piece 6.00 28 02/26/16 16:00 97.9 92 16 116/68 98 02/26/16 15:13 99 T-Piece 4.00 28 Humidified 02/26/16 12:00 97.2 91 14 122/78 98 I/O 02/26/16 02/26/16 02/26/16 02/27/16 02/27/16 02/27/16 07:00 15:00 23:00 07:00 15:00 23:00 Intake Total 1830 ml 333 ml Output Total 1000 ml 1700 ml 1050 ml 800 ml Balance -1000 ml -1700 ml 780 ml -800 ml 333 ml Tube Feeding 1430 ml 333 ml Other 400 ml Output Urine Total 1000 ml 1700 ml 1050 ml 800 ml # Bowel Movements 0 0 1 Result Diagram: 02/26/1626 02/26/16625 Objective Remarks GENERAL: This is a well-nourished, well-developed patient, eyes open, CARDIOVASCULAR: Sinus tach without murmurs, gallops, or rubs. RESPIRATORY: Tracheostomy Clear to auscultation. Breath sounds equal bilaterally. No wheezes, rales, or rhonchi. GASTROINTESTINAL: PEG tube Abdomen soft, non-tender, nondistended. Normal active bowel sounds MUSCULOSKELETAL: Extremities without clubbing, cyanosis, or edema. NEURO: Encephalopathic, eyes opened on command Procedures 01/02/16 PEG placement 01/02/16 tracheostomy A/P Problem List: (1) CVA (cerebral vascular accident) Status: Acute (2) A-fib Status: Chronic (3) DM (diabetes mellitus) Status: Chronic Assessment and Plan Patient continues with continued medical care for severe encephalopathy and with tracheostomy care and with medication adjustment Labs reviewed and are within normal limits INR stable Problem Qualifiers (1) DM (diabetes mellitus): Qualified Code: E11.9 - Type 2 diabetes mellitus without complications Cathy Lindo MD Feb 27, 2016 11:38
[2016-02-27 12:01] VITALS: BP 115/69; PULSE 100; PULSE 107; RESP 17; TEMP 96.8; O2SAT 99
[2016-02-27 16:00] VITALS: BP 108/63; PULSE 88; RESP 15; TEMP 99.2; O2SAT 99
[2016-02-27] MEDS: WARFARIN SOD 3 MG TAB PO SCH (16:53)
[2016-02-27] MEDS: PARoxetine HCL SUSP 20 MG/10 ML UDC PEG SCH (17:07)
[2016-02-27 20:00] VITALS: BP 118/68; PULSE 88; PULSE 93; RESP 20; TEMP 99.4; O2SAT 97
[2016-02-27] MEDS: INSULIN DETEMIR 100 UNITS/ML VIAL SQ SCH (21:03)
[2016-02-28] VITALS (7 sets, daily range): BP systolic 120–159; BP diastolic 67–95; PULSE 85–118; RESP 18–20; TEMP 97.6–100.7; O2SAT 97–99
[2016-02-28] MEDS: INSULIN ASPART SUPPLEMENTAL SCALE SQ SCH ×4 (00:28→18:11)
[2016-02-28] MEDS: FREE WATER TUBE SCH ×6 (04:00→20:00)
[2016-02-28] MEDS: ACETIC ACID 0.25% SOLN 1000 ML IRR BTL IRRIGATION SCH ×3 (06:57→20:55)
[2016-02-28 08:35] LABS: PROTHROMBIN TIME - PATIENT 22.1 SEC (9.8-11.4)
[2016-02-28] MEDS: METOPROLOL TARTRATE 50 MG TAB GT SCH ×3 (09:00→18:11)
[2016-02-28] MEDS: NYSTATIN 100,000 U/GM PWD 15 GM BTL TOPICAL SCH ×2 (09:00→22:16)
[2016-02-28] MEDS: RANITIDINE HCL SYRUP 150 MG/10 ML UDC PO SCH (09:18)
[2016-02-28] MEDS: SENNOSIDES SYRUP 8.8 MG/5 ML CUP TUBE SCH (09:18)
[2016-02-28] MEDS: levETIRAcetam 500 MG/5 ML UDC TUBE SCH ×2 (09:18→20:55)
--- NOTE | 2016-02-28 11:20 | HHI.PR ---
Subjective Remarks Follow up for encephalopathy with stroke. Patient seen with family at bedside. Family has no concerns. No acute events overnight. Continuing trach care. Vital signs stable. Patient nonverbal. Objective Vitals Vital Signs Date Time Temp Pulse Resp B/P Pulse Ox O2 Delivery O2 Flow Rate FiO2 02/28/16 09:07 99.0 118 20 137/95 97 02/28/16 08:50 T-piece 28 02/28/16 04:00 97.6 115 20 159/86 99 02/28/16 00:00 98.6 89 20 120/72 98 02/27/16 20:00 99.4 93 20 118/68 97 02/27/16 20:00 88 02/27/16 19:50 99 T-Piece 4.00 28 02/27/16 16:00 99.2 88 15 108/63 99 02/27/16 12:01 96.8 100 17 115/69 99 02/27/16 12:01 107 I/O 02/27/16 02/27/16 02/27/16 02/28/16 02/28/16 02/28/16 06:59 14:59 22:59 06:59 14:59 22:59 Intake Total 333 ml Output Total 800 ml 1200 ml 1100 ml Balance -800 ml -867 ml -1100 ml Tube Feeding 333 ml Output Urine Total 800 ml 1200 ml 1100 ml # Bowel Movements 1 2 Result Diagram: 02/26/16 0626 02/26/16 0626 Imaging Last Impressions Chest X-Ray 02/12/16 0000 Signed Impressions: Service Date/Time: Friday, February 12, 2016 13:27 - CONCLUSION: Subsegmental basilar atelectasis similar to prior study. No consolidation and no effusion. Tracheostomy in satisfactory position. 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 Anterior circulation remains intact. Mikie Vargas MD Head CT 01/16/16 0000 Signed Impressions: Service Date/Time: Saturday, January 16, 2016 10:51 - CONCLUSION: No extensive low density in the brainstem colin more prominent in the right the left extending into the right middle cerebellar peduncle consistent with brainstem infarct nonhemorrhagic acute Wellington West MD Brain MRI 01/16/16 0000 Signed Impressions: Service Date/Time: Saturday, January 16, 2016 20:05 - CONCLUSION: Recent infarctions in both occipital lobes and left cerebellum. High flair abnormality within the colin but greater on the right where there is enhancement. This is likely related to progressive acute ischemic changes. Mikie Vargas MD Abdomen X-Ray 01/14/16 0000 Signed Impressions: Service Date/Time: Thursday, January 14, 2016 10:19 - CONCLUSION: Moderate stool; otherwise, negative. 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 No evidence of carotid stenosis. Glen Zamora MD Head/Brain Mag Res Venography 12/22/15 0000 Signed Impressions: Service Date/Time: Tuesday, December 22, 2015 09:22 - CONCLUSION: Normal MRV. Jonel Jones Jr., MD Objective Remarks GENERAL: Well-nourished, well-developed male patient in [facility]. SKIN: Warm and dry. HEAD: Normocephalic. Atraumatic. EYES: Pupils equal and round. No scleral icterus. No injection or drainage. NECK: Supple. Tracheostomy in place. CARDIOVASCULAR: Regular rate and rhythm. S1, S2 noted. No murmur appreciated. RESPIRATORY: No accessory muscle use. Clear to auscultation. Breath sounds equal bilaterally. GASTROINTESTINAL: Abdomen soft, non-tender, nondistended. Normoactive bowel sounds x4. PEG in place, no surrounding erythema/discharge. MUSCULOSKELETAL: No obvious deformities. Extremities without clubbing, cyanosis , or edema. 2+ b/l radial and pedal pulses. NEUROLOGICAL: Eyes locked, open. Does not move any extremities. Nonverbal. Procedures 01/02/16 PEG placement 01/02/16 tracheostomy Medications and IVs Current Medications Medications (Trade) Dose Ordered Sig/Junior Route Start Time Stop Time Status Last Admin (NS Flush) 2 ml UNSCH PRN IVF 12/21/15 06:00 02/22/16 08:48 (D50w (Vial) Inj) 25 ml UNSCH PRN IV PUSH 12/21/15 13:00 (Glucagon Inj) 1 mg UNSCH PRN OTHER 12/21/15 13:00 (Keppra Liq) 500 mg Q12HR TUBE 12/27/15 21:00 02/28/16 09:18 (Colace Liq) 100 mg Q12HR TUBE 12/27/15 21:00 Hold 01/15/16 09:01 (Tylenol 650 Mg/ 20 ml Liq) 650 mg Q6H PRN TUBE 12/30/15 15:15 02/08/16 16:37 (Doucette 5-325 Mg) 1 tab Q6H PRN PO 12/31/15 15:00 02/26/16 05:51 (Sublimaze Inj) 25 mcg Q1H PRN IV PUSH 12/31/15 15:00 Insulin Aspart 1 1 Q6HR SQ 01/04/16 12:00 02/28/16 06:57 (Coumadin Consult Pharmacy) 0 ml @ 0 mls/hr UNSCH XX 01/04/16 12:30 (Mycostatin Powder) 1 applic Q12HR TOPICAL 01/08/16 21:00 02/28/16 09:00 (Lopressor) 75 mg TID GT 01/14/16 09:00 02/28/16 09:00 (Pill Splitter) 1 ea UNSCH PRN OTHER 01/14/16 08:30 (Levemir Inj) 24 units HS SQ 01/15/16 21:00 02/27/16 21:03 (Zantac Liq) 150 mg Q24H PO 01/18/16 09:00 02/28/16 09:18 (Free Water) 400 ml Q4HR TUBE 01/19/16 12:00 02/28/16 08:00 (Acetic Acid 0.25% Irr Btl) 10 ml Q8HR IRRIGATION 02/05/16 16:00 02/28/16 06:57 (Senna Liq) 8.8 mg DAILY TUBE 02/21/16 09:00 02/28/16 09:18 (Coumadin) 3 mg DAILY@16 PO 02/24/16 16:00 02/27/16 16:53 (Paxil Liq) 20 mg DAILY@1900 PEG 02/26/16 19:00 02/27/16 17:07 A/P Problem List: (1) CVA (cerebral vascular accident) Status: Acute (2) A-fib Status: Chronic (3) DM (diabetes mellitus) Status: Chronic Assessment and Plan 60-year-old male with: CVA (cerebral vascular accident): 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 Significant residual cognitive deficit. Non verbal. 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 -Continue Keppra and Coumadin- Palliative care following. Monitor on Keppra. On Coumadin with therapeutic INR. GI/Nutrition: Had some issues with PEG tube clogged presumable from Lactinex. Exchanged by GI at bedside and Lactinex was discontinued. Nepro tube feedings as recommended by dietitian for sodium content. -Continue Nepro at 55 cc/hr per dietitian recommendations. Respiratory failure: Secondary to CVA. Patient is status post tracheostomy. Continue pulmonary toilet and neb treatments as needed. Pulmonary following. - Occasional Blood-tinged secretion around the trach. Trach care per pulmonology. Continue to monitor Depression: Discussed with palliative care Dr. Avilez. Patient started on antidepressives. A-fib: continue Lopressor, warfarin with INR/PT monitoring. Echocardiogram completed in November shows preserved EF. INR therapeutic, pharmacy following. UTI: Urine culture grew Klebsiella. Patient completed ceftriaxone course. Exchanged Arevalo catheter ordered 02/15. Coccyx pressure ulcer: Plastic surgery was reconsulted. Plastic surgery provided recommendations. History of Non-Hodgkin lymphoma: s/p brain biopsy on December 13, by Neurosurgery, Dr. Marin, Pathology consistent with acute infarct without evidence of lymphoma -Seen by Oncology, Dr. Whyte, who has signed off for current admission as there are no active oncology issues DM: Hemoglobin A1c is 7.0. Continue Levemir with sliding scale insulin- monitor and adjust the regimen as needed. DVT prophylaxis: Full anticoagulation with Coumadin. INR therapeutic Discharge Planning Discharge planning per case management, needs placement, SSI pending. Problem Qualifiers (1) DM (diabetes mellitus): Qualified Code: E11.9 - Type 2 diabetes mellitus without complications Ernestine Townsend PA-C Feb 28, 2016 11:20 Cathy Lindo MD Feb 28, 2016 13:23
[2016-02-28] MEDS: RESP: ALBUTEROL 2.5 MG/IPRATROPIUM 0.5 MG NEB (PRN) NEB (15:57)
[2016-02-28] MEDS: ACETAMINOPHEN 650 MG/20.3 ML UDC TUBE PRN (16:12)
[2016-02-28] MEDS: WARFARIN SOD 3 MG TAB PO SCH (16:17)
[2016-02-28] MEDS: PARoxetine HCL SUSP 20 MG/10 ML UDC PEG SCH (18:11)
[2016-02-28] MEDS: INSULIN DETEMIR 100 UNITS/ML VIAL SQ SCH (22:16)
[2016-02-29] VITALS (11 sets, daily range): BP systolic 125–145; BP diastolic 68–91; PULSE 77–118; RESP 16–20; TEMP 96.6–98.8; O2SAT 97–99
[2016-02-29] MEDS: INSULIN ASPART SUPPLEMENTAL SCALE SQ SCH ×4 (00:55→17:24)
[2016-02-29] MEDS: FREE WATER TUBE SCH ×6 (04:00→20:00)
[2016-02-29] MEDS: ACETIC ACID 0.25% SOLN 1000 ML IRR BTL IRRIGATION SCH ×3 (06:00→21:09)
[2016-02-29] MEDS: RANITIDINE HCL SYRUP 150 MG/10 ML UDC PO SCH (08:20)
[2016-02-29] MEDS: SENNOSIDES SYRUP 8.8 MG/5 ML CUP TUBE SCH (08:20)
[2016-02-29] MEDS: METOPROLOL TARTRATE 50 MG TAB GT SCH ×3 (08:20→17:24)
[2016-02-29] MEDS: levETIRAcetam 500 MG/5 ML UDC TUBE SCH ×2 (08:21→21:09)
[2016-02-29] MEDS: NYSTATIN 100,000 U/GM PWD 15 GM BTL TOPICAL SCH ×2 (09:00→21:00)
[2016-02-29 09:13] LABS: INTERNATIONAL NORMALIZED RATIO 2.6 RATIO; PROTHROMBIN TIME - PATIENT 28.3 SEC (9.8-11.4)
--- NOTE | 2016-02-29 11:00 | HHI.PR ---
Subjective Remarks Follow-up for encephalopathy status post CVA. Discussed with RN, patient was noted to have low-grade fevers yesterday and was given Tylenol yesterday afternoon. Also RN states that heart rate only goes up when the patient is moved or is uncomfortable. Patient with family member at bedside, states that he is oxygen saturation has been good but his heart rate has been in the 90s. No other complaints at this time. Objective Vitals Vital Signs Date Time Temp Pulse Resp B/P Pulse Ox O2 Delivery O2 Flow Rate FiO2 02/29/16 08:58 98.1 117 20 135/84 97 02/29/16 08:55 98 T-piece 28 02/29/16 08:55 98 T-piece 28 02/29/16 08:05 110 02/29/16 08:05 T-Piece 6.00 28 02/29/16 06:15 98 T-piece 6.00 28 02/29/16 04:00 97.5 118 20 145/91 98 02/29/16 00:00 98.2 98 20 131/81 97 02/28/16 20:08 99 T-Piece 4.00 02/28/16 20:00 98.7 85 20 130/78 99 02/28/16 20:00 92 02/28/16 16:00 98 T-Piece 4.00 28 02/28/16 15:41 100.7 85 19 124/67 97 02/28/16 12:03 99.8 92 18 128/69 98 I/O 02/28/16 02/28/16 02/28/16 02/29/16 02/29/16 02/29/16 07:00 15:00 23:00 07:00 15:00 23:00 Intake Total 2220 ml 2160 ml Output Total 1100 ml 1000 ml 1100 ml Balance 1120 ml -1000 ml 1060 ml Tube Feeding 1020 ml 960 ml Tube Irrigant 1200 ml 1200 ml Output Urine Total 1100 ml 1000 ml 1100 ml # Bowel Movements 1 Result Diagram: 02/26/1662502/26/16625 Objective Remarks GENERAL: Well-developed well-nourished. In no acute distress. SKIN: Warm and dry. No lesions noted. HEENT: Normocephalic. Pupils equal and round. Mucous membranes pink and moist. Trach in place with no surrounding erythema or drainage. CARDIOVASCULAR: Controlled but irregular rate and irregular rhythm. No murmur appreciated. RESPIRATORY: No accessory muscle use. Clear to auscultation. Breath sounds equal bilaterally. Crackles noted. GASTROINTESTINAL: Abdomen soft, non-tender, nondistended. Bowel sounds x4. PEG in place with no surrounding erythema or drainage. MUSCULOSKELETAL: No obvious deformities. No clubbing or cyanosis. No edema. NEUROLOGICAL: Awake and alert. Eyes open. Locked in. Nonverbal. 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 Significant residual cognitive deficit. Non verbal. 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 -Continue Keppra and Coumadin- Palliative care following. Monitor on Keppra. GI/Nutrition: Had some issues with PEG tube clogged presumable from Lactinex. This was exchanged by GI at bedside and Lactinex was discontinued. Nepro tube feedings as recommended by dietitian for sodium content. -Continue Nepro at 55 cc/hr per dietitian recommendations. Respiratory failure: Secondary to CVA. Patient is status post tracheostomy. Continue pulmonary toilet and neb treatments as needed. Pulmonary following. - Occasional Blood-tinged secretion around the trach. Trach care per pulmonology. Continue to monitor Depression: Discussed with palliative care Dr. Avilez. Patient started on antidepressives. A-fib: continue Lopressor, warfarin with INR/PT monitoring. Echocardiogram completed in November shows preserved EF. On Coumadin, pharmacy to dose. Monitor heart rate and consider adding Cardizem. UTI: Urine culture grew Klebsiella. Patient completed ceftriaxone course. Exchanged Arevalo catheter ordered 02/15. Coccyx pressure ulcer: Plastic surgery was reconsulted. Plastic surgery provided recommendations. History of Non-Hodgkin lymphoma: s/p brain biopsy on December 13, by Neurosurgery, Dr. Marin, Pathology consistent with acute infarct without evidence of lymphoma -Seen by Oncology, Dr. Whyte, who has signed off for current admission as there are no active oncology issues DM: Hemoglobin A1c is 7.0. Continue Levemir with sliding scale insulin- monitor and adjust the regimen as needed. Fever: Patient was noted to have Tmax 100.7 yesterday afternoon, but no further fevers overnight. Vital signs are currently stable. We will check a CBC today. Consider chest x-ray and UA if patient has signs of infection on CBC today. DVT prophylaxis: Full anticoagulation with Coumadin. INR therapeutic Discharge Planning Patient will need placement. Discussed with case management, SSI pending. Problem Qualifiers (1) DM (diabetes mellitus): Qualified Code: E11.9 - Type 2 diabetes mellitus without complications Floyd Vinson Feb 29, 2016 10:59 Cathy Lindo MD Feb 29, 2016 11:42
--- NOTE | 2016-02-29 13:12 | HHI.HCSW ---
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 Flores currently lying in bed, asleep and appears comfortable. Did not awaken to verbal stimuli throughout my conversation with mother at bedside. . Significant Family/Friend Patient's mother at bedside. She is on the phone but engages in some conversation. Very tearful throughout my visit repeatedly stating "I pray, I pray, I pray". Offered emotional support and normalized feelings. She expresses no concerns at this time. . Pertinent Social History Mr. Flores is originally from [place]. He moved to the around 35 years ago, first to [place] and later to [place]. He is not legally but remains with his ex-, Leanne. They have been together for 31+ years and have three children together: Leanne, Gerald, and Ginny. Gerald is currently in [facility] for work. Mr. Flores has 2 brothers and 7 sisters. His father is of old age. His mother is alive and was living with the patient. There is no reported illness in the family, Leanne will attempt to find out more prior to family meeting tomorrow. Mr Flores previously did work in the [employer] industry, eventually in the [employer] market to [employer] vendors. 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 He is described as a "heavy smoker since age 14". Reported to smoke at least 1PPD, increasingly more in the past year relating to anxiety and fear of cancer returning. Denies alcohol use. He is described as an animated and charismatic man. He best responds to slow and clear speech, as Haitian is his second language. He reportedly responds well to positive reinforcement at well. . Quality of Life Values/Goals He is very much a family man, he comes from a large family and has a good support system. . Advance Directive Per [place] Statutes, medical proxy decision making falls to the majority of adult children as Mr. Flores is not legally . Important Contacts Leanne, daughter: [phone] <--- point of contact Ginny, daughter: [phone] Gerald, son: currently in [facility] for work but has communication with his siblings. Leanne, ex-/current significant other: [phone] . Follow Up Visit Palliative care will continue to follow throughout hospitalization. SW will follow for emotional and social support. Shelly Jones Feb 29, 2016 13:12
[2016-02-29 13:55] LABS: AUTOMATED NEUTROPHIL # 5.7 TH/MM3 (1.8-7.7); BASOPHIL # 0.1 TH/MM3 (0-0.2); BASOPHIL % 1.2 % (0.0-2.0); EOSINOPHIL # 0.4 TH/MM3 (0-0.4); EOSINOPHIL % 4.2 % (0.0-4.0); HEMATOCRIT 32.4 % (39.0-51.0); LYMPH % 18.7 % (9.0-44.0); LYMPHOCYTE # 1.6 TH/MM3 (1.0-4.8); MEAN CELL VOLUME 77.5 FL (80.0-100.0); MEAN CORPUSCULAR HEMOGLOBIN 24.7 PG (27.0-34.0); MEAN CORPUSCULAR HGB CONC 31.9 % (32.0-36.0); MONO % 8.1 % (0.0-8.0); NEUT % 67.8 % (16.0-70.0); PLATELET COUNT 228 TH/MM3 (150-450); RED BLOOD COUNT 4.18 MIL/MM3 (4.50-5.90); RED CELL DISTRIBUTION WIDTH 17.8 % (11.6-17.2); WHITE BLOOD COUNT 8.5 TH/MM3 (4.0-11.0)
[2016-02-29 13:57] LABS: HEMO FLAGS AUTO DIFF
[2016-02-29 15:33] LABS: PLATELET ESTIMATE SMEAR NORMAL (NORMAL); PLATELET MORPHOLOGY NORMAL (NORMAL); SCAN/DIFF AUTO DIFF CONFIRMED; TARGET CELLS 1+ (NORMAL)
[2016-02-29] MEDS: INSULIN DETEMIR 100 UNITS/ML VIAL SQ SCH (21:09)
[2016-02-29] MEDS: PARoxetine HCL SUSP 20 MG/10 ML UDC PEG SCH (21:09)
[2016-03-01] VITALS (11 sets, daily range): BP systolic 93–149; BP diastolic 58–79; PULSE 89–109; RESP 18–20; TEMP 96.4–99.4; O2SAT 94–100
[2016-03-01] MEDS: FREE WATER TUBE SCH ×6 (04:00→20:00)
[2016-03-01] MEDS: ACETIC ACID 0.25% SOLN 1000 ML IRR BTL IRRIGATION SCH ×3 (06:00→21:13)
[2016-03-01] MEDS: INSULIN ASPART SUPPLEMENTAL SCALE SQ SCH ×4 (06:00→17:50)
[2016-03-01 06:45] LABS: INTERNATIONAL NORMALIZED RATIO 2.3 RATIO; PROTHROMBIN TIME - PATIENT 25.2 SEC (9.8-11.4)
[2016-03-01] MEDS: SENNOSIDES SYRUP 8.8 MG/5 ML CUP TUBE SCH (08:27)
[2016-03-01] MEDS: RANITIDINE HCL SYRUP 150 MG/10 ML UDC PO SCH (08:27)
[2016-03-01] MEDS: levETIRAcetam 500 MG/5 ML UDC TUBE SCH ×2 (08:27→21:12)
[2016-03-01] MEDS: METOPROLOL TARTRATE 50 MG TAB GT SCH ×3 (08:28→16:19)
[2016-03-01] MEDS: NYSTATIN 100,000 U/GM PWD 15 GM BTL TOPICAL SCH ×2 (08:34→21:00)
[2016-03-01] MEDS: ACETAMINOPHEN/HYDROcodone 325 MG/5 MG TAB PO PRN (10:19)
--- NOTE | 2016-03-01 11:09 | HHI.PR ---
Subjective Remarks Patient seen while RN doing sacral wound care. RN reports no acute complaints. The patient is seen with his mother at bedside. The patient blinks "no" when asked if he has any shortness of breath, pain, urinary complaints, fevers. Objective Vitals Vital Signs Date Time Temp Pulse Resp B/P Pulse Ox O2 Delivery O2 Flow Rate FiO2 03/01/16 08:00 98.8 109 20 136/79 97 03/01/16 04:00 99.0 102 18 149/71 98 03/01/16 00:00 96.4 90 18 127/73 98 02/29/16 20:23 98 T-piece 6.00 28 02/29/16 20:23 98 T-piece 6.00 28 02/29/16 20:00 96.6 85 16 134/71 99 02/29/16 19:15 T-Piece 6.00 28 02/29/16 19:00 77 02/29/16 16:32 98.1 93 20 125/75 98 02/29/16 13:15 98.8 98 20 132/68 99 I/O 02/29/16 02/29/16 02/29/16 03/01/16 03/01/16 03/01/16 07:00 15:00 23:00 07:00 15:00 23:00 Intake Total 2160 ml 0 ml Output Total 1100 ml 350 ml 1001 ml Balance 1060 ml -350 ml -1001 ml Intake Oral 0 ml Tube Feeding 960 ml Tube Irrigant 1200 ml Output Urine Total 1100 ml 350 ml 1000 ml Stool Total 1 ml # Bowel Movements 1 Result Diagram: 02/29/16 1250 02/26/16 0626 Objective Remarks GENERAL: Well-developed well-nourished. In no acute distress. SKIN: Warm and dry. Stage IV sacral ulcer ~2 cm with tunneling, packing removed with no purulent material, no surrounding erythema, no drainage. HEENT: Normocephalic. Pupils equal and round. Mucous membranes pink and moist. Trach in place. CARDIOVASCULAR: Controlled but irregular rate and irregular rhythm. No murmur appreciated. RESPIRATORY: No accessory muscle use. Clear to auscultation. Breath sounds equal bilaterally. No crackles noted today. GASTROINTESTINAL: Abdomen soft, non-tender, nondistended. Bowel sounds x4. PEG in place. MUSCULOSKELETAL: No obvious deformities. No clubbing or cyanosis. No edema. NEUROLOGICAL: Awake and alert. Eyes open, moves eyes and blinks answer questions. Locked in. Nonverbal. 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 Significant residual cognitive deficit. Non verbal. 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 -Continue Keppra and Coumadin- Palliative care following. Monitor on Keppra. GI/Nutrition: Had some issues with PEG tube clogged presumable from Lactinex. This was exchanged by GI at bedside and Lactinex was discontinued. Nepro tube feedings as recommended by dietitian for sodium content. -Continue Nepro at 55 cc/hr per dietitian recommendations. Respiratory failure: Secondary to CVA. Patient is status post tracheostomy. Continue pulmonary toilet and neb treatments as needed. Pulmonary following. - Occasional Blood-tinged secretion around the trach. Trach care per pulmonology. Continue to monitor Depression: Discussed with palliative care Dr. Avilez. Patient started on antidepressives. A-fib: continue Lopressor, warfarin with INR/PT monitoring. Echocardiogram completed in November shows preserved EF. On Coumadin, pharmacy to dose. Monitor heart rate and consider adding Cardizem. UTI: Urine culture grew Klebsiella. Patient completed ceftriaxone course. Exchanged Arevalo catheter ordered 02/15. Coccyx pressure ulcer: Plastic surgery was reconsulted. Continue wound care per Plastic surgery recommendations. History of Non-Hodgkin lymphoma: s/p brain biopsy on December 13, by Neurosurgery, Dr. Marin, Pathology consistent with acute infarct without evidence of lymphoma -Seen by Oncology, Dr. Whyte, who has signed off for current admission as there are no active oncology issues DM: Hemoglobin A1c is 7.0. Continue Levemir with sliding scale insulin- monitor and adjust the regimen as needed. Fever: Low-grade fevers noted 02/27. No further fever since. No leukocytosis on CBC 02/28. Sacral wound clean. Vital signs are currently stable. Consider chest x-ray and UA if patient has any further signs of infection. DVT prophylaxis: Full anticoagulation with Coumadin. INR therapeutic Discharge Planning Patient will need placement. Discussed with case management, SSI pending. Problem Qualifiers (1) DM (diabetes mellitus): Qualified Code: E11.9 - Type 2 diabetes mellitus without complications Floyd Vinson Mar 01, 2016 11:09 Cathy Lindo MD Mar 01, 2016 13:03
[2016-03-01] MEDS: WARFARIN SOD 3 MG TAB PO SCH (16:18)
[2016-03-01] MEDS: PARoxetine HCL SUSP 20 MG/10 ML UDC PEG SCH (17:48)
[2016-03-01] MEDS: INSULIN DETEMIR 100 UNITS/ML VIAL SQ SCH (21:12)
[2016-03-02] VITALS (12 sets, daily range): BP systolic 118–145; BP diastolic 64–87; PULSE 77–124; RESP 16–22; TEMP 96.8–99.8; O2SAT 96–100
[2016-03-02] MEDS: FREE WATER TUBE SCH ×6 (04:00→20:00)
[2016-03-02] MEDS: ACETIC ACID 0.25% SOLN 1000 ML IRR BTL IRRIGATION SCH ×3 (06:00→20:41)
[2016-03-02] MEDS: INSULIN ASPART SUPPLEMENTAL SCALE SQ SCH ×4 (06:00→16:33)
[2016-03-02 08:27] LABS: INTERNATIONAL NORMALIZED RATIO 2.1 RATIO; PROTHROMBIN TIME - PATIENT 22.3 SEC (9.8-11.4)
[2016-03-02] MEDS: SENNOSIDES SYRUP 8.8 MG/5 ML CUP TUBE SCH (08:43)
[2016-03-02] MEDS: RANITIDINE HCL SYRUP 150 MG/10 ML UDC PO SCH (08:43)
[2016-03-02] MEDS: levETIRAcetam 500 MG/5 ML UDC TUBE SCH ×2 (08:43→20:41)
[2016-03-02] MEDS: METOPROLOL TARTRATE 50 MG TAB GT SCH ×3 (08:43→19:30)
[2016-03-02] MEDS: NYSTATIN 100,000 U/GM PWD 15 GM BTL TOPICAL SCH ×2 (08:47→20:41)
--- NOTE | 2016-03-02 11:20 | HHI.PR ---
Subjective Remarks Patient seen today in follow-up for brain injury status post stroke. Doing well. Resting. No distress at all. Family at bedside. No further fever Objective Vitals Vital Signs Date Time Temp Pulse Resp B/P Pulse Ox O2 Delivery O2 Flow Rate FiO2 03/02/16 08:14 99.1 124 21 145/87 99 03/02/16 05:00 100 T-piece 6.00 28 03/02/16 05:00 99 T-piece 6.00 28 03/02/16 04:00 97.3 77 16 136/73 100 03/02/16 04:00 96.8 122 20 145/86 97 03/02/16 00:00 99.8 104 18 144/77 100 03/01/16 22:09 98 Trach Collar 03/01/16 21:15 T-Piece 6.00 28 03/01/16 20:00 99.4 98 18 123/67 99 03/01/16 19:00 90 03/01/16 15:50 98.7 101 20 121/71 94 03/01/16 14:57 90 T-Piece 6.00 28 03/01/16 12:08 97.9 89 20 93/58 100 I/O 03/01/16 03/01/16 03/01/16 03/02/16 03/02/16 03/02/16 07:00 15:00 23:00 07:00 15:00 23:00 Intake Total 0 ml 0 ml 0 ml Output Total 1001 ml 600 ml 350 ml Balance -1001 ml -600 ml -350 ml 0 ml Intake Oral 0 ml 0 ml 0 ml Output Urine Total 1000 ml 600 ml 350 ml Stool Total 1 ml 0 ml Result Diagram: 02/29/16 1250 Objective Remarks GENERAL: This is a well-nourished, well-developed patient, eyes open, CARDIOVASCULAR: Sinus tach without murmurs, gallops, or rubs. RESPIRATORY: Tracheostomy Clear to auscultation. Breath sounds equal bilaterally. No wheezes, rales, or rhonchi. GASTROINTESTINAL: PEG tube Abdomen soft, non-tender, nondistended. Normal active bowel sounds MUSCULOSKELETAL: Extremities without clubbing, cyanosis, or edema. NEURO: Encephalopathic, eyes opened on command Procedures 01/02/16 PEG placement 01/02/16 tracheostomy A/P Problem List: (1) CVA (cerebral vascular accident) Status: Acute (2) A-fib Status: Chronic (3) DM (diabetes mellitus) Status: Chronic Assessment and Plan Patient continues with continued medical care for severe encephalopathy and with tracheostomy care and with medication adjustment Patient continues with family involvement and rehabilitation efforts Labs reviewed and are within normal limits INR stable Problem Qualifiers (1) DM (diabetes mellitus): Qualified Code: E11.9 - Type 2 diabetes mellitus without complications Cathy Lindo MD Mar 02, 2016 11:20
[2016-03-02] MEDS: WARFARIN SOD 3 MG TAB PO SCH (15:54)
[2016-03-02] MEDS: PARoxetine HCL SUSP 20 MG/10 ML UDC PEG SCH (20:41)
[2016-03-02] MEDS: INSULIN DETEMIR 100 UNITS/ML VIAL SQ SCH (20:41)
[2016-03-03] VITALS (10 sets, daily range): BP systolic 115–134; BP diastolic 67–79; PULSE 94–126; RESP 19–23; TEMP 97.1–100.8; O2SAT 96–99
[2016-03-03] MEDS: FREE WATER TUBE SCH ×6 (04:00→20:00)
[2016-03-03] MEDS: INSULIN ASPART SUPPLEMENTAL SCALE SQ SCH ×4 (05:18→17:53)
[2016-03-03] MEDS: ACETIC ACID 0.25% SOLN 1000 ML IRR BTL IRRIGATION SCH ×3 (05:18→21:17)
[2016-03-03 08:48] LABS: INTERNATIONAL NORMALIZED RATIO 2.1 RATIO; PROTHROMBIN TIME - PATIENT 22.2 SEC (9.8-11.4)
[2016-03-03] MEDS: NYSTATIN 100,000 U/GM PWD 15 GM BTL TOPICAL SCH ×2 (09:00→21:17)
[2016-03-03] MEDS: SENNOSIDES SYRUP 8.8 MG/5 ML CUP TUBE SCH (09:29)
[2016-03-03] MEDS: levETIRAcetam 500 MG/5 ML UDC TUBE SCH ×2 (09:29→20:58)
[2016-03-03] MEDS: METOPROLOL TARTRATE 50 MG TAB GT SCH ×3 (09:30→17:55)
[2016-03-03] MEDS: RANITIDINE HCL SYRUP 150 MG/10 ML UDC PO SCH (09:30)
--- NOTE | 2016-03-03 09:34 | HHI.PR ---
Subjective Remarks Follow up for brain injury s/p CVA. Patient seen with no family at bedside this morning. Vital signs reveal Tmax 100.8 this morning and tachycardic HR 126. Otherwise no acute events overnight. Patient eyes open, nonverbal. Objective Vitals Vital Signs Date Time Temp Pulse Resp B/P Pulse Ox O2 Delivery O2 Flow Rate FiO2 03/03/16 08:18 100.8 126 21 129/74 98 03/03/16 04:30 98.8 110 23 115/76 99 03/03/16 00:09 97.1 94 19 120/67 98 03/02/16 23:10 97 T-piece 6.00 28 03/02/16 21:00 T-Piece 6.00 28 03/02/16 20:45 97.0 87 18 118/72 99 03/02/16 20:00 96 T-piece 6.00 28 03/02/16 19:00 99 03/02/16 16:00 97.5 97 22 127/64 98 03/02/16 12:00 98.2 96 22 134/72 98 03/02/16 11:18 97 T-piece 6.00 28 03/02/16 11:18 97 T-piece 6.00 28 I/O 03/02/16 03/02/16 03/02/16 03/03/16 03/03/16 03/03/16 07:00 15:00 23:00 07:00 15:00 23:00 Intake Total 0 ml 0 ml 0 ml Output Total 1650 ml 600 ml 650 ml Balance 0 ml -1650 ml -600 ml -650 ml Intake Oral 0 ml 0 ml 0 ml Output Urine Total 1650 ml 600 ml 650 ml # Bowel Movements 0 0 0 Result Diagram: 02/29/16 1250 Imaging Last Impressions Chest X-Ray 02/12/16 0000 Signed Impressions: Service Date/Time: Friday, February 12, 2016 13:27 - CONCLUSION: Subsegmental basilar atelectasis similar to prior study. No consolidation and no effusion. Tracheostomy in satisfactory position. 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 Anterior circulation remains intact. Mikie Vargas MD Head CT 01/16/16 0000 Signed Impressions: Service Date/Time: Saturday, January 16, 2016 10:51 - CONCLUSION: No extensive low density in the brainstem colin more prominent in the right the left extending into the right middle cerebellar peduncle consistent with brainstem infarct nonhemorrhagic acute Wellington West MD Brain MRI 01/16/16 0000 Signed Impressions: Service Date/Time: Saturday, January 16, 2016 20:05 - CONCLUSION: Recent infarctions in both occipital lobes and left cerebellum. High flair abnormality within the colin but greater on the right where there is enhancement. This is likely related to progressive acute ischemic changes. Mikie Vargas MD Abdomen X-Ray 01/14/16 0000 Signed Impressions: Service Date/Time: Thursday, January 14, 2016 10:19 - CONCLUSION: Moderate stool; otherwise, negative. 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 No evidence of carotid stenosis. Glen Zamora MD Head/Brain Mag Res Venography 12/22/15 0000 Signed Impressions: Service Date/Time: Tuesday, December 22, 2015 09:22 - CONCLUSION: Normal MRV. Jonel Jones Jr., MD Objective Remarks GENERAL: Well-nourished, well-developed male patient in [facility]. SKIN: Warm and dry. HEAD: Normocephalic. Atraumatic. EYES: Pupils equal and round. No scleral icterus. No injection or drainage. NECK: Supple. Tracheostomy in place. CARDIOVASCULAR: Tachycardic, regular rhythm. S1, S2 noted. No murmur appreciated. RESPIRATORY: No accessory muscle use. Clear to auscultation. Breath sounds equal bilaterally. GASTROINTESTINAL: Abdomen soft, non-tender, nondistended. Normoactive bowel sounds x4. PEG in place, no surrounding erythema/discharge. MUSCULOSKELETAL: No obvious deformities. Extremities without clubbing, cyanosis , or edema. 2+ b/l radial and pedal pulses. NEUROLOGICAL: Eyes locked, open. Does not move any extremities. Nonverbal. Procedures 01/02/16 PEG placement 01/02/16 tracheostomy Medications and IVs Current Medications Medications (Trade) Dose Ordered Sig/Junior Route Start Time Stop Time Status Last Admin (NS Flush) 2 ml UNSCH PRN IVF 12/21/15 06:00 02/22/16 08:48 (D50w (Vial) Inj) 25 ml UNSCH PRN IV PUSH 12/21/15 13:00 (Glucagon Inj) 1 mg UNSCH PRN OTHER 12/21/15 13:00 (Keppra Liq) 500 mg Q12HR TUBE 12/27/15 21:00 03/02/16 20:41 (Colace Liq) 100 mg Q12HR TUBE 12/27/15 21:00 Hold 01/15/16 09:01 (Tylenol 650 Mg/ 20 ml Liq) 650 mg Q6H PRN TUBE 12/30/15 15:15 02/28/16 16:12 ([place] 5-325 Mg) 1 tab Q6H PRN PO 12/31/15 15:00 03/01/16 10:19 (Sublimaze Inj) 25 mcg Q1H PRN IV PUSH 12/31/15 15:00 Insulin Aspart 1 1 Q6HR SQ 01/04/16 12:00 03/03/16 05:18 (Coumadin Consult Pharmacy) 0 ml @ 0 mls/hr UNSCH XX 01/04/16 12:30 (Mycostatin Powder) 1 applic Q12HR TOPICAL 01/08/16 21:00 03/02/16 20:41 (Lopressor) 75 mg TID GT 01/14/16 09:00 03/02/16 19:30 (Pill Splitter) 1 ea UNSCH PRN OTHER 01/14/16 08:30 (Levemir Inj) 24 units HS SQ 01/15/16 21:00 03/02/16 20:41 (Zantac Liq) 150 mg Q24H PO 01/18/16 09:00 03/02/16 08:43 (Free Water) 400 ml Q4HR TUBE 01/19/16 12:00 03/03/16 04:00 (Acetic Acid 0.25% Irr Btl) 10 ml Q8HR IRRIGATION 02/05/16 16:00 03/03/16 05:18 (Senna Liq) 8.8 mg DAILY TUBE 02/21/16 09:00 03/02/16 08:43 (Paxil Liq) 20 mg DAILY@1900 PEG 02/26/16 19:00 03/02/16 20:41 (Coumadin) 3 mg DAILY@16 PO 03/01/16 16:00 03/02/16 15:54 A/P Problem List: (1) CVA (cerebral vascular accident) Status: Acute (2) A-fib Status: Chronic (3) DM (diabetes mellitus) Status: Chronic Assessment and Plan 60-year-old male with: CVA (cerebral vascular accident): 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 Significant residual cognitive deficit. Non verbal. 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 -Continue Keppra and Coumadin- Palliative care following. Monitor on Keppra. On Coumadin with therapeutic INR. -Patient and family have meeting with neurologist Dr. Oconnor Monday 03/05 GI/Nutrition: Had some issues with PEG tube clogged presumable from Lactinex. Exchanged by GI at bedside and Lactinex was discontinued. Nepro tube feedings as recommended by dietitian for sodium content. -Continue Nepro at 55 cc/hr per dietitian recommendations. Respiratory failure: Secondary to CVA. Patient is status post tracheostomy. Continue pulmonary toilet and neb treatments as needed. Pulmonary following. - Occasional Blood-tinged secretion around the trach. Trach care per pulmonology. Continue to monitor Depression: Discussed with palliative care Dr. Avilez. Patient started on antidepressives. A-fib: continue Lopressor, warfarin with INR/PT monitoring. Echocardiogram completed in November shows preserved EF. INR therapeutic, pharmacy following. UTI: Urine culture grew Klebsiella. Patient completed ceftriaxone course. Exchanged Arevalo catheter ordered 02/15. Coccyx pressure ulcer: Plastic surgery was reconsulted. Plastic surgery provided recommendations. History of Non-Hodgkin lymphoma: s/p brain biopsy on December 13, by Neurosurgery, Dr. Marin, Pathology consistent with acute infarct without evidence of lymphoma -Seen by Oncology, Dr. Whyte, who has signed off for current admission as there are no active oncology issues DM: Hemoglobin A1c is 7.0. Continue Levemir with sliding scale insulin- monitor and adjust the regimen as needed. SIRS Criteria: acute, 03/03, fever Tmax 100.8, HR 126. Notified attending who will evaluate. DVT prophylaxis: Full anticoagulation with Coumadin. INR therapeutic Discharge Planning Discharge planning per case management, needs placement, SSI pending. Attending Statement The exam, history, and the medical decision-making described in the above note were completed with the assistance of the mid-level provider. I reviewed and agree with the findings presented. I attest that I had a [id number] encounter with the patient on the same day, and personally performed and documented my assessment and findings in the medical record. 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
--- NOTE | 2016-03-03 11:10 | RADRPT ---
EXAM DATE/TIME: 03/03/2016 10:41 [facility] COMPARISON: CHEST SINGLE AP, February 12, 2016, 13:27. INDICATIONS : Fever MEDICAL HISTORY : Hypertension. Diabetes mellitus type II. Lymphoma SURGICAL HISTORY : None. ENCOUNTER: Initial ACUITY: 2 days PAIN SCORE: Non-responsive. LOCATION: Bilateral chest FINDINGS: There has been improvement with the previously noted right lower lung infiltrate. The left lung base is now clear. Otherwise, the lungs are clear. A tracheostomy tube is in good position. There is no pn eumothorax. There no pleural effusions or pulmonary edema. The bony structures are stable. CONCLUSION: Improving right lower lung infiltrate. Otherwise, the lungs are clear bilaterally. Mihcael Hamilton MD on March 03, 2016 at 11:06 Board Certified Radiologist. This report was verified electronically.
[2016-03-03 12:11] LABS: AUTOMATED NEUTROPHIL # 7.8 TH/MM3 (1.8-7.7); BASOPHIL # 0.1 TH/MM3 (0-0.2); BASOPHIL % 0.8 % (0.0-2.0); EOSINOPHIL # 0.3 TH/MM3 (0-0.4); EOSINOPHIL % 2.5 % (0.0-4.0); HEMATOCRIT 31.9 % (39.0-51.0); LYMPH % 14.7 % (9.0-44.0); LYMPHOCYTE # 1.5 TH/MM3 (1.0-4.8); MEAN CELL VOLUME 77.3 FL (80.0-100.0); MEAN CORPUSCULAR HEMOGLOBIN 23.7 PG (27.0-34.0); MEAN CORPUSCULAR HGB CONC 30.7 % (32.0-36.0); MONO % 5.7 % (0.0-8.0); NEUT % 76.3 % (16.0-70.0); PLATELET COUNT 227 TH/MM3 (150-450); RED BLOOD COUNT 4.12 MIL/MM3 (4.50-5.90); RED CELL DISTRIBUTION WIDTH 17.6 % (11.6-17.2); WHITE BLOOD COUNT 10.3 TH/MM3 (4.0-11.0)
[2016-03-03 12:18] LABS: HEMO FLAGS AUTO DIFF
[2016-03-03 12:27] LABS: BICARBONATE 26.5 MEQ/L (21.0-32.0); POTASSIUM 3.7 MEQ/L (3.5-5.1)
[2016-03-03 12:51] LABS: BLOOD, URINE NEG (NEG); COMMENT (UR) CATH-CULT NOT IND; CULTURE IF INDICATED CATH CULTURE NOT IND; GLUCOSE,URINE NEG (NEG); HYALINE CAST, URINE 1 /lpf (RARE); KETONE, URINE NEG (NEG); MUCUS URINE FEW /lpf (OCC); NITRITE,URINE NEG (NEG); SQUAMOUS EPITHELIAL CELL URINE <1 /hpf (0-5); URINE COLOR YELLOW (YELLW/STRAW)
[2016-03-03 12:57] LABS: SCAN/DIFF AUTO DIFF CONFIRMED
[2016-03-03] MEDS: WARFARIN SOD 3 MG TAB PO SCH (16:44)
[2016-03-03] MEDS: ACETAMINOPHEN/HYDROcodone 325 MG/5 MG TAB PO PRN (20:58)
[2016-03-03] MEDS: PARoxetine HCL SUSP 20 MG/10 ML UDC PEG SCH (20:58)
[2016-03-03] MEDS: SODIUM CHLORIDE 0.9% FLUSH 5 ML FLUSH IVF PRN (21:16)
[2016-03-03] MEDS: INSULIN DETEMIR 100 UNITS/ML VIAL SQ SCH (21:16)
[2016-03-04] VITALS (10 sets, daily range): BP systolic 111–144; BP diastolic 67–78; PULSE 91–130; RESP 19–22; TEMP 97.6–101.3; O2SAT 96–100
[2016-03-04] MEDS: INSULIN ASPART SUPPLEMENTAL SCALE SQ SCH ×4 (00:16→17:47)
[2016-03-04] MEDS: FREE WATER TUBE SCH ×6 (04:00→21:09)
[2016-03-04] MEDS: ACETIC ACID 0.25% SOLN 1000 ML IRR BTL IRRIGATION SCH ×3 (06:07→21:14)
[2016-03-04] MEDS: ACETAMINOPHEN/HYDROcodone 325 MG/5 MG TAB PO PRN (06:27)
[2016-03-04] MEDS: SENNOSIDES SYRUP 8.8 MG/5 ML CUP TUBE SCH (08:48)
[2016-03-04] MEDS: RANITIDINE HCL SYRUP 150 MG/10 ML UDC PO SCH (08:48)
[2016-03-04] MEDS: levETIRAcetam 500 MG/5 ML UDC TUBE SCH ×2 (08:48→21:09)
[2016-03-04 08:49] LABS: INTERNATIONAL NORMALIZED RATIO 2.1 RATIO; PROTHROMBIN TIME - PATIENT 22.9 SEC (9.8-11.4)
[2016-03-04] MEDS: METOPROLOL TARTRATE 50 MG TAB GT SCH ×3 (08:49→16:48)
[2016-03-04] MEDS: NYSTATIN 100,000 U/GM PWD 15 GM BTL TOPICAL SCH ×2 (08:49→21:14)
--- NOTE | 2016-03-04 11:49 | HHI.PR ---
Subjective Remarks Patient seen in follow-up for fever. MAXIMUM TEMPERATURE 100.4 this morning. Patient in no distress. Chest x-ray, urine are within normal limits. There is some left shift but no codi leukocytosis noted. On exam patient has no evidence of DVT or lying tenderness. Patient is more awake today. He has had central fever in the past. Discussed with family at bedside Objective Vitals Vital Signs Date Time Temp Pulse Resp B/P Pulse Ox O2 Delivery O2 Flow Rate FiO2 03/04/16 11:09 130 03/04/16 09:25 98 T-piece 5.00 28 03/04/16 09:25 98 T-piece 5.00 28 03/04/16 08:00 100.4 127 22 144/78 97 03/04/16 06:00 98.9 115 19 121/68 98 03/04/16 05:05 99 T-piece 6.00 28 03/04/16 00:00 99.1 100 20 124/75 97 03/03/16 20:50 98 T-piece 6.00 28 03/03/16 20:44 98 T-piece 6.00 28 03/03/16 20:30 99.4 110 19 122/74 96 03/03/16 19:55 T-Piece 6.00 28 03/03/16 16:37 100.1 97 22 117/79 98 03/03/16 12:00 97.9 96 21 134/78 98 I/O 03/03/16 03/03/16 03/03/16 03/04/16 03/04/16 03/04/16 07:00 15:00 23:00 07:00 15:00 23:00 Intake Total 0 ml 0 ml 1934 ml Output Total 650 ml 350 ml 800 ml 1000 ml Balance -650 ml -350 ml -800 ml 934 ml Intake Oral 0 ml 0 ml 0 ml Tube Feeding 1134 ml Other 800 ml Output Urine Total 650 ml 350 ml 800 ml 1000 ml # Bowel Movements 0 1 0 1 Result Diagram: 03/03/16 1130 03/03/16 1130 Objective Remarks GENERAL: This is a well-nourished, well-developed patient, eyes open, CARDIOVASCULAR: Sinus tach without murmurs, gallops, or rubs. RESPIRATORY: Tracheostomy Clear to auscultation. Breath sounds equal bilaterally. No wheezes, rales, or rhonchi. GASTROINTESTINAL: PEG tube Abdomen soft, non-tender, nondistended. Normal active bowel sounds MUSCULOSKELETAL: Extremities without clubbing, cyanosis, or edema. NEURO: Encephalopathic, eyes opened on command Procedures 01/02/16 PEG placement 01/02/16 tracheostomy A/P Problem List: (1) CVA (cerebral vascular accident) Status: Acute (2) A-fib Status: Chronic (3) DM (diabetes mellitus) Status: Chronic Assessment and Plan We'll continue to evaluate fever. This may be central fever. Blood cultures are still pending however current workup is unfruitful. We'll observe off up into biotic's and follow his leukocytes. Problem Qualifiers (1) DM (diabetes mellitus): Qualified Code: E11.9 - Type 2 diabetes mellitus without complications Cathy Lindo MD Mar 04, 2016 11:49
[2016-03-04] MEDS: ACETAMINOPHEN 650 MG/20.3 ML UDC TUBE PRN (12:00)
[2016-03-04] MEDS: WARFARIN SOD 3 MG TAB PO SCH (16:47)
[2016-03-04] MEDS: PARoxetine HCL SUSP 20 MG/10 ML UDC PEG SCH (17:47)
[2016-03-04] MEDS: INSULIN DETEMIR 100 UNITS/ML VIAL SQ SCH (21:09)
[2016-03-05] VITALS (8 sets, daily range): BP systolic 110–130; BP diastolic 70–82; PULSE 99–126; RESP 20–22; TEMP 98.6–100.1; O2SAT 93–100
[2016-03-05] MEDS: FREE WATER TUBE SCH ×7 (01:29→23:46)
[2016-03-05] MEDS: INSULIN ASPART SUPPLEMENTAL SCALE SQ SCH ×5 (01:29→23:45)
[2016-03-05] MEDS: ACETIC ACID 0.25% SOLN 1000 ML IRR BTL IRRIGATION SCH ×3 (05:34→20:26)
[2016-03-05 05:54] LABS: HEMATOCRIT 27.8 % (39.0-51.0); MEAN CORPUSCULAR HEMOGLOBIN 24.7 PG (27.0-34.0); MEAN CORPUSCULAR HGB CONC 32.9 % (32.0-36.0); PLATELET COUNT 215 TH/MM3 (150-450); RED BLOOD COUNT 3.71 MIL/MM3 (4.50-5.90); RED CELL DISTRIBUTION WIDTH 17.4 % (11.6-17.2); WHITE BLOOD COUNT 7.2 TH/MM3 (4.0-11.0)
[2016-03-05 05:56] LABS: REVIEW FLAG FINAL
[2016-03-05 06:05] LABS: INTERNATIONAL NORMALIZED RATIO 2.5 RATIO; PROTHROMBIN TIME - PATIENT 27.2 SEC (9.8-11.4)
--- NOTE | 2016-03-05 07:49 | HHI.PR ---
Subjective Remarks afib Objective Vital Signs Date Time Temp Pulse Resp B/P Pulse Ox O2 Delivery O2 Flow Rate FiO2 03/05/16 06:12 98.6 113 20 130/82 99 03/05/16 00:13 98.6 99 20 117/70 100 03/04/16 20:47 96 T-piece 5.00 28 03/04/16 20:47 96 T-piece 5.00 28 03/04/16 20:00 99.7 97 22 119/67 97 03/04/16 16:00 97.6 91 22 125/73 100 03/04/16 12:00 101.3 105 22 111/72 97 03/04/16 11:09 130 03/04/16 09:25 98 T-piece 5.00 28 03/04/16 09:25 98 T-piece 5.00 28 03/04/16 08:00 100.4 127 22 144/78 97 I/O 03/04/16 03/04/16 03/04/16 03/05/16 03/05/16 03/05/16 07:00 15:00 23:00 07:00 15:00 23:00 Intake Total 1934 ml Output Total 1000 ml 550 ml 1100 ml Balance 934 ml -550 ml -1100 ml Intake Oral 0 ml Tube Feeding 1134 ml Other 800 ml Output Urine Total 1000 ml 550 ml 1100 ml # Bowel Movements 1 1 0 Result Diagram: 03/05/16 0501 03/03/16 1130 Objective Remarks pupil = awake and blinks eyes to command eye see no movemnt below neck today and cannot stick out tongue or move lue Assessment and Plan Assessment and Plan mrv shows basilar occlusion and mri shows sign bilat occipital and some small r cbllr acute cva the colin is slightly hyperintense almost full thickness and looks like major pontine infarct however not as bright as we usually see with infarct he could have a penumbra effect in colin so could be recoverable or just needs time to change signal plan is to keep bp up recheck mri friday if more bright then family thinking of decisions no sedatives i rec chemical code only will consider we discussed and we will keep anticoag going for now and i told her risk of bleeding into upper brain with some blood signal in original cva i dw dr vick and nitin cancino and neither felt it would be helpful to try and extract basilar clot and could kill him they both felt the colin was infarcted he could be locked in he is acting as if colin is infarcted although slight chance it could be stunned/ penumbra neuro will follow over i will be back 12/25/15 i dw family at length and reviewed films with them no major change in brainstem brightness on mri inr 3.5 target 2-2.5 i think they would like to see how he does over the next 3 months and will probably go for trach if needed and peg he is locked in for the most part but full aware 12/26/15 inr 2.6 i dw son yest had some vertical eye movements to command monitor 12/27/15 locked in so he can hear all that is said family devoted and i expect peg+/-trach and they will see how he does next 6 months inr 2.4 doesnt always respond as will not awaken as quick as others 12/29/15 doing more with eyes locked in for trach and peg coumadin management per med team for that sq hep ok if need off coumadin for trach ------ 12/31/15 stable neuro for trach peg tues i kenna daughter 01/04/16 asleep now sedation last two days with trach and peg could affect his neuro fxt will dw family needs coumadin restarted bp a little low try and keep >120/ if possible 01/26/16 STABLE NEURO LOCKED IN NO MAJOR CHANGE OK TO REHAB BY ME ---- 02/17/16 locked in no major change inr good stable neuro 03/05/16 no change really family states he has not moved left hand for two weeks and has decubitus will see if can get special bed and have would nurse come by today i dw family( not present today) that they need to ask him at some point if he wants to live like this they are not prepared to do so at this time overall basically stable neuro will recheck mri Steven De Leon MD Mar 05, 2016 07:49
[2016-03-05] MEDS: NYSTATIN 100,000 U/GM PWD 15 GM BTL TOPICAL SCH ×2 (09:00→20:26)
--- NOTE | 2016-03-05 10:15 | RADRPT ---
EXAM DATE/TIME: 03/05/2016 09:26 [facility] COMPARISON: MRI BRAIN W & W/O CONTRAST, January 16, 2016, 20:05. MRA BRAIN W/O CONTRAST, March 05, 2016, 9:26. M RA BRAIN W/O CONTRAST, December 22, 2015, 9:22. MRI BRAIN W & W/O CONTRAST, December 21, 2015, 10:00. CT B RAIN W/O CONTRAST, December 21, 2015, 6:01. CT BRAIN W/O CONTRAST, December 11, 2015, 19:42. MRI BRAIN W/O C ONTRAST, December 29, 2015, 13:35. INDICATIONS : Has not moved left hand for two weeks. MEDICAL HISTORY : Hypertension. Lymphoma. Diabetes mellitus type 2. SURGICAL HISTORY : Feeding tube, trach, elbow ENCOUNTER: Subsequent ACUITY: 2 weeks PAIN SCORE: 0/10 LOCATION: cranial TECHNIQUE: Multiplanar, multisequence MRI of the brain was performed without contrast. FINDINGS: Evolving infarct remains evident in the brainstem and occipital lobes. A large area of T2 hyperintensity is identified involving the right side of the colin and midbrain. Th e degree of restricted diffusion in this air continues to decrease.Bilateral occipital lobe infarcts are now exhibiting volume loss and mild residual restricted diffusion. Subacute hemorrhagic products are identified bilaterally. There is no significant mass effect. The frontal, temporal and parietal lobes are otherwise stable without evidence of acute infarct or he morrhage. CSF spaces are stable in appearance. CONCLUSION: Evolving brainstem and bilateral occipital lobe infarcts with evidence of subacute hemorrhagic produc ts. There is decreasing restricted diffusion and increasing loss of volume characteristic of a subacu te to chronic infarct. No evidence of acute infarct, acute hemorrhage mass or edema. Ernesto Kulkarni MD on March 05, 2016 at 10:03 Board Certified Radiologist. This report was verified electronically.
--- NOTE | 2016-03-05 10:22 | RADRPT ---
EXAM DATE/TIME: 03/05/2016 09:26 [facility] COMPARISON: MRA BRAIN W/O CONTRAST, December 22, 2015, 9:22. MRA BRAIN W/O CONTRAST, January 16, 2016, 20:05. INDICATIONS : Has not moved left hand for two weeks. MEDICAL HISTORY : Hypertension. Lymphoma. Diabetes mellitus type 2. SURGICAL HISTORY : Feeding tube, elbow, trach ENCOUNTER: Subsequent ACUITY: 2 weeks PAIN SCORE: 0/10 LOCATION: cranial Please note a normal MRA of the brain does not entirely exclude the possibility of a small aneurysm, nor the possibility of distal intracranial vessel disease. TECHNIQUE: 3D time of flight MRA was performed. Source images, multiplanar STS MIP, and 3D volume MIP reconstru ctions were reviewed. FINDINGS: There is excellent visualization of the major intracranial arteries out to the second-order branch ve ssels. Anterior circulation: Anterior circulation demonstrates stable flow without significant stenosis or arterial occlusions. De creased signal intensity is identified in the left middle cerebral artery due to dephasing. Posterior circulation: High-grade severe stenotic lesions are identified in the distal intracranial segment of the right kali tebral artery and at the origin of the basilar artery. The basilar arterial stenosis is irregular samra racteristic of persistent intraluminal thrombus or plaque. The distal basilar artery is patent. There is good filling of the posterior screw arteries. Compare the patient's initial presentation the basi lar artery has partially recanalized and demonstrates significant improvement in flow. CONCLUSION: Persistent high-grade subtotal occlusive stenotic lesions in the distal right vertebral artery and pr oximal basilar artery with significant improvement in flow and recanalization following initial prese ntation of thrombosis. Stable interstitial circulation without significant stenosis. Ernesto Kulkarni MD on March 05, 2016 at 10:13 Board Certified Radiologist. This report was verified electronically.
[2016-03-05] MEDS: SENNOSIDES SYRUP 8.8 MG/5 ML CUP TUBE SCH (10:35)
[2016-03-05] MEDS: levETIRAcetam 500 MG/5 ML UDC TUBE SCH ×2 (10:35→20:24)
[2016-03-05] MEDS: RANITIDINE HCL SYRUP 150 MG/10 ML UDC PO SCH (10:35)
[2016-03-05] MEDS: METOPROLOL TARTRATE 50 MG TAB GT SCH ×3 (10:36→17:59)
--- NOTE | 2016-03-05 11:17 | HHI.PR ---
Subjective Remarks MAXIMUM TEMPERATURE 101.3 today. Patient seen in room with wound care team and Eddi RN. Patient still without any source of infection. Wound appears vascular but without actual infection. Lines are clean No evidence of DVT or PE Chest x-ray and urine show no evidence of infection Blood cultures are still pending Leukocytes are not elevated Discussed with family at bedside Objective Vitals Vital Signs Date Time Temp Pulse Resp B/P Pulse Ox O2 Delivery O2 Flow Rate FiO2 03/05/16 09:13 99.6 125 22 127/76 96 03/05/16 06:12 98.6 113 20 130/82 99 03/05/16 00:13 98.6 99 20 117/70 100 03/04/16 20:47 96 T-piece 5.00 28 03/04/16 20:47 96 T-piece 5.00 28 03/04/16 20:00 99.7 97 22 119/67 97 03/04/16 16:00 97.6 91 22 125/73 100 03/04/16 12:00 101.3 105 22 111/72 97 I/O 03/04/16 03/04/16 03/04/16 03/05/16 03/05/16 03/05/16 07:00 15:00 23:00 07:00 15:00 23:00 Intake Total 1934 ml Output Total 1000 ml 550 ml 1100 ml Balance 934 ml -550 ml -1100 ml Intake Oral 0 ml Tube Feeding 1134 ml Other 800 ml Output Urine Total 1000 ml 550 ml 1100 ml # Bowel Movements 1 1 0 Result Diagram: 03/05/16 0501 03/03/16 1130 Objective Remarks GENERAL: This is a well-nourished, well-developed patient, eyes open, CARDIOVASCULAR: Sinus tach without murmurs, gallops, or rubs. RESPIRATORY: Tracheostomy Clear to auscultation. Breath sounds equal bilaterally. No wheezes, rales, or rhonchi. GASTROINTESTINAL: PEG tube Abdomen soft, non-tender, nondistended. Normal active bowel sounds MUSCULOSKELETAL: Extremities without clubbing, cyanosis, or edema. NEURO: Encephalopathic, eyes opened on command Procedures 01/02/16 PEG placement 01/02/16 tracheostomy A/P Problem List: (1) CVA (cerebral vascular accident) Status: Acute (2) A-fib Status: Chronic (3) DM (diabetes mellitus) Status: Chronic Discharge Planning Discussed with Dr. De Leon, wound care and [facility] Nursing Team. We'll Repeat MRI to Reassess Patient Long-Term Care Goals May Need to Be Reassessed after MRI. Patient May Be Agreeable at That Time to Consider Hospice We'll Continue to Evaluate fever. If Further Fever May Consider ID Consult, repeat cbc in am Continue wound care DM on Levemir, will increase to 27 Units INR 2.5 Problem Qualifiers (1) DM (diabetes mellitus): Qualified Code: E11.9 - Type 2 diabetes mellitus without complications Cathy Lindo MD Mar 05, 2016 11:17
[2016-03-05] MEDS: WARFARIN SOD 3 MG TAB PO SCH (17:59)
[2016-03-05] MEDS: PARoxetine HCL SUSP 20 MG/10 ML UDC PEG SCH (20:25)
[2016-03-06] VITALS (9 sets, daily range): BP systolic 108–137; BP diastolic 65–78; PULSE 96–114; RESP 18–24; TEMP 98.2–101.1; O2SAT 96–100
[2016-03-06] MEDS: FREE WATER TUBE SCH ×6 (05:34→23:56)
[2016-03-06] MEDS: ACETIC ACID 0.25% SOLN 1000 ML IRR BTL IRRIGATION SCH ×3 (05:35→21:31)
[2016-03-06] MEDS: INSULIN ASPART SUPPLEMENTAL SCALE SQ SCH ×4 (05:35→23:55)
[2016-03-06] MEDS: ACETAMINOPHEN/HYDROcodone 325 MG/5 MG TAB PO PRN (05:36)
[2016-03-06 06:35] LABS: HEMATOCRIT 28.5 % (39.0-51.0); MEAN CELL VOLUME 74.4 FL (80.0-100.0); MEAN CORPUSCULAR HEMOGLOBIN 24.2 PG (27.0-34.0); MEAN CORPUSCULAR HGB CONC 32.5 % (32.0-36.0); PLATELET COUNT 213 TH/MM3 (150-450); RED BLOOD COUNT 3.84 MIL/MM3 (4.50-5.90); RED CELL DISTRIBUTION WIDTH 17.8 % (11.6-17.2); WHITE BLOOD COUNT 6.8 TH/MM3 (4.0-11.0)
[2016-03-06 06:39] LABS: REVIEW FLAG FINAL
[2016-03-06 06:48] LABS: INTERNATIONAL NORMALIZED RATIO 2.3 RATIO; PROTHROMBIN TIME - PATIENT 25.3 SEC (9.8-11.4)
[2016-03-06] MEDS: METOPROLOL TARTRATE 50 MG TAB GT SCH ×3 (08:14→17:58)
[2016-03-06] MEDS: SENNOSIDES SYRUP 8.8 MG/5 ML CUP TUBE SCH (08:15)
[2016-03-06] MEDS: NYSTATIN 100,000 U/GM PWD 15 GM BTL TOPICAL SCH ×2 (08:15→21:31)
[2016-03-06] MEDS: levETIRAcetam 500 MG/5 ML UDC TUBE SCH ×2 (08:15→21:31)
[2016-03-06] MEDS: RANITIDINE HCL SYRUP 150 MG/10 ML UDC PO SCH (08:15)
--- NOTE | 2016-03-06 10:02 | HHI.PR ---
Subjective Remarks No active changes overnight. Nursing staff states mucus from trach site has not changed. No fever spike over the past 24 hours. Both mother and sister at bedside. Plan of care discussed with both of them. Objective Vitals Vital Signs Date Time Temp Pulse Resp B/P Pulse Ox O2 Delivery O2 Flow Rate FiO2 03/06/16 09:42 111 03/06/16 09:31 98.4 114 24 137/78 97 03/06/16 08:37 97 T-piece 4.00 28 03/06/16 08:37 97 T-piece 4.00 28 03/06/16 07:38 97 Humidified 28 03/06/16 04:00 98.2 98 20 124/76 97 03/06/16 00:22 98.6 99 20 131/75 96 03/05/16 20:01 98 T-piece 28 03/05/16 20:01 98 T-piece 28 03/05/16 20:00 99.9 99 20 110/70 97 03/05/16 17:15 100.1 115 22 126/70 96 03/05/16 13:13 100.0 126 22 127/76 93 I/O 03/05/16 03/05/16 03/05/16 03/06/16 03/06/16 03/06/16 07:00 15:00 23:00 07:00 15:00 23:00 Intake Total 0 ml Output Total 1100 ml 1400 ml 750 ml 900 ml Balance -1100 ml -1400 ml -750 ml -900 ml Intake Oral 0 ml Output Urine Total 1100 ml 1400 ml 750 ml 900 ml # Bowel Movements 0 1 1 1 Result Diagram: 03/06/16 0607 03/03/16 1130 Other Results Item Value Date Time Bedside Blood Glucose 162 mg/dl 03/06/16 0535 Bedside Blood Glucose 227 mg/dl 03/05/16 2345 Bedside Blood Glucose 200 mg/dl 03/05/16 1759 Objective Remarks GENERAL: This is a well-nourished, well-developed patient, in no apparent distress. NECK: Trach, TPs in place CARDIOVASCULAR: Regular rate and rhythm RESPIRATORY: Coarse upper respiratory breath sounds. GASTROINTESTINAL: Abdomen soft, obese non-tender, nondistended. Normal active bowel sounds : Indwelling Arevalo in place MUSCULOSKELETAL: Extremities without clubbing, cyanosis, or edema. In bilateral heel protectors NEURO: Not awake and alert, did not follow commands. 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 Neurology repeated another MRI MRA of the brain on March 05 with discussion of repeating another MRI next Friday for comparison per Dr. De Leon. Significant residual cognitive deficit. Non verbal. 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 -Continue Keppra and Coumadin which is currently therapeutic- Palliative care following. Monitor on Keppra. Per previous hospitalist note and neurology note, Family plans to consider possibility of palliative care and hospice pending MRI the brain next Friday and if patient does not show any neurological changes. GI/Nutrition: Had some issues with PEG tube clogged previously presumable from Lactinex. This was exchanged by GI at bedside and Lactinex was discontinued. Nepro tube feedings as recommended by dietitian for sodium content. -Continue Nepro at 55 cc/hr per dietitian recommendations. Respiratory failure: Secondary to CVA. Patient is status post tracheostomy. Continue pulmonary toilet and neb treatments as needed. Pulmonary following. - Occasional Blood-tinged secretion around the trach. Trach care per pulmonology. Continue to monitor Depression: Patient on antidepressives. A-fib: continue Lopressor for rate control, warfarin with INR/PT monitoring. Echocardiogram completed in November shows preserved EF. On Coumadin, pharmacy following to assist with dosing. Monitor heart rate and consider adding Cardizem. UTI: Previous Urine culture grew Klebsiella. Patient completed ceftriaxone course. Exchanged Arevalo catheter ordered 02/15. Patient had a recurrent fever spike 2 days previously and blood cultures were redrawn, today's culture only showed one set and questionable repeat contamination. We'll repeat blood cultures again today. No fevers over the past 24 hours. Will check repeat UA C&S if indicated. Consider infectious disease consultation for any recurrent fever spikes. Coccyx pressure ulcer: Plastic surgery was reconsulted. Continue wound care per Plastic surgery recommendations. History of Non-Hodgkin lymphoma: s/p brain biopsy on December 13, by Neurosurgery, Dr. Marin, Pathology consistent with acute infarct without evidence of lymphoma -Seen by Oncology, Dr. Whyte, who has signed off for current admission as there are no active oncology issues DM: Hemoglobin A1c is 7.0. Continue to at bedtime Levemir with sliding scale insulin- Labile glycemic control, increase LEVEMIR dosing DVT prophylaxis: Full anticoagulation with Coumadin. INR therapeutic Discuss with mother and sister at bedside Problem Qualifiers (1) DM (diabetes mellitus): Qualified Code: E11.9 - Type 2 diabetes mellitus without complications Allegra Humphries MD Mar 06, 2016 10:02
[2016-03-06] MEDS: ACETAMINOPHEN 650 MG/20.3 ML UDC TUBE PRN (12:17)
[2016-03-06] MEDS: RESP: ALBUTEROL 2.5 MG/IPRATROPIUM 0.5 MG NEB (PRN) NEB (13:46)
[2016-03-06 14:10] LABS: BACTERIA, URINE OCC /hpf; BLOOD, URINE SMALL (NEG); GLUCOSE,URINE NEG (NEG); GRANULAR CAST, URINE 12 /lpf; HYALINE CAST, URINE 7 /lpf (RARE); KETONE, URINE NEG (NEG); MUCUS URINE FEW /lpf (OCC); NITRITE,URINE NEG (NEG); PH, URINE 5.5 (5.0-8.5); SQUAMOUS EPITHELIAL CELL URINE <1 /hpf (0-5); URINE COLOR YELLOW (YELLW/STRAW)
[2016-03-06 14:13] LABS: COMMENT (UR) CATH-CULTURE IND; CULTURE IF INDICATED CATH CULTURE IND
[2016-03-06] MEDS: WARFARIN SOD 3 MG TAB PO SCH (16:22)
[2016-03-06] MEDS: PARoxetine HCL SUSP 20 MG/10 ML UDC PEG SCH (18:27)
[2016-03-06] MEDS: INSULIN DETEMIR 100 UNITS/ML VIAL SQ SCH (21:30)
[2016-03-07] VITALS (9 sets, daily range): BP systolic 111–136; BP diastolic 59–95; PULSE 95–121; RESP 16–21; TEMP 96.5–100.3; O2SAT 95–100
[2016-03-07] MEDS: FREE WATER TUBE SCH ×5 (04:00→19:58)
[2016-03-07] MEDS: ACETAMINOPHEN 650 MG/20.3 ML UDC TUBE PRN (04:06)
[2016-03-07] MEDS: ACETIC ACID 0.25% SOLN 1000 ML IRR BTL IRRIGATION SCH ×3 (05:03→22:00)
[2016-03-07] MEDS: INSULIN ASPART SUPPLEMENTAL SCALE SQ SCH ×3 (06:12→18:22)
[2016-03-07 08:32] LABS: INTERNATIONAL NORMALIZED RATIO 3.3 RATIO; PROTHROMBIN TIME - PATIENT 37.7 SEC (9.8-11.4)
[2016-03-07] MEDS: levETIRAcetam 500 MG/5 ML UDC TUBE SCH ×2 (08:48→20:00)
[2016-03-07] MEDS: RANITIDINE HCL SYRUP 150 MG/10 ML UDC PO SCH (08:48)
[2016-03-07] MEDS: METOPROLOL TARTRATE 50 MG TAB GT SCH ×3 (08:49→17:05)
[2016-03-07] MEDS: SENNOSIDES SYRUP 8.8 MG/5 ML CUP TUBE SCH (08:49)
[2016-03-07] MEDS: NYSTATIN 100,000 U/GM PWD 15 GM BTL TOPICAL SCH ×2 (08:49→21:00)
--- NOTE | 2016-03-07 11:22 | HHI.PR ---
Subjective Remarks Nursing staff states there was a fever spike of 100.3 overnight. Otherwise no other active changes. Family at bedside has been working with patient on passive range of motion. Objective Vitals Vital Signs Date Time Temp Pulse Resp B/P Pulse Ox O2 Delivery O2 Flow Rate FiO2 03/07/16 08:08 96.5 105 18 135/81 100 03/07/16 07:38 98 Humidified 03/07/16 04:00 100.3 115 16 123/65 97 03/07/16 02:52 98 Trach Collar 28 Humidified 03/07/16 00:00 97.4 109 20 136/59 96 03/06/16 20:00 98.8 96 18 121/69 97 03/06/16 19:25 99 T-piece 5.00 28 03/06/16 19:25 99 T-piece 5.00 28 03/06/16 17:43 99.2 97 24 113/65 100 03/06/16 12:40 101.1 110 24 108/68 99 I/O 03/06/16 03/06/16 03/06/16 03/07/16 03/07/16 03/07/16 07:00 15:00 23:00 07:00 15:00 23:00 Intake Total 1317 ml 800 ml Output Total 900 ml 1025 ml 1550 ml Balance -900 ml -1025 ml 1317 ml -750 ml Intake Oral 0 ml Tube Feeding 917 ml Tube Irrigant 400 ml 800 ml Output Urine Total 900 ml 1025 ml 1550 ml # Bowel Movements 1 Result Diagram: 03/06/16 0607 03/03/16 1130 Other Results Item Value Date Time Prothromb Time International Ratio 3.3 RATIO 03/07/16 0743 Microbiology Date/Time Procedure Status Source Growth 03/06/16 12:15 Urine Culture Received Urine Catheterized Urine Pending 03/06/16 11:12 Aerobic Blood Culture - Preliminary Resulted Blood Peripheral NO GROWTH IN 1 DAY 03/06/16 11:12 Anaerobic Blood Culture - Preliminary Resulted Blood Peripheral NO GROWTH IN 1 DAY Objective Remarks GENERAL: This is a well-nourished, well-developed patient, in no apparent distress. NECK: Trach, TPs in place CARDIOVASCULAR: Regular rate and rhythm RESPIRATORY: Coarse upper respiratory breath sounds. GASTROINTESTINAL: Abdomen soft, obese non-tender, nondistended. Normal active bowel sounds : Indwelling Arevalo in place MUSCULOSKELETAL: Extremities without clubbing, cyanosis, or edema. In bilateral heel protectors NEURO: Not awake and alert, did not follow commands. 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 Neurology repeated another MRI MRA of the brain on March 05 with discussion of repeating another MRI next Friday for comparison per Dr. De Leon. Significant residual cognitive deficit. Non verbal. 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 -Continue Keppra and Coumadin which is currently 3.3 will be held today- Palliative care following. Monitor on Keppra. Per previous hospitalist note and neurology note, Family plans to consider possibility of palliative care and hospice pending MRI the brain next Friday and if patient does not show any neurological changes. GI/Nutrition: Had some issues with PEG tube clogged previously presumable from Lactinex. This was exchanged by GI at bedside and Lactinex was discontinued. Nepro tube feedings as recommended by dietitian for sodium content. -Continue Nepro at 55 cc/hr per dietitian recommendations. Respiratory failure: Secondary to CVA. Patient is status post tracheostomy. Continue pulmonary toilet and neb treatments as needed. Pulmonary following. - Occasional Blood-tinged secretion around the trach. Trach care per pulmonology. Continue to monitor Depression: Patient on antidepressives. A-fib: continue Lopressor for rate control, warfarin with INR/PT monitoring. Echocardiogram completed in November shows preserved EF. On Coumadin, pharmacy following to assist with dosing. Monitor heart rate and consider adding Cardizem. UTI: Previous Urine culture grew Klebsiella. Patient completed ceftriaxone course. Exchanged Arevalo catheter ordered 02/15. Patient had a recurrent fever spike 3 days previously and then another recurrent fever yesterday evening and blood cultures were redrawn, yesterday, microbiology blood culture only showed one set and questionable contamination, today is not showing any type of growth and blood cultures. repeated blood cultures again on 03/06 and will follow. Will check repeat UA C&S if indicated. Awaiting final urine culture. Change Arevalo catheter again today. Will start Bactrim twice a day for 7 days until final urine cultures are available. Consider infectious disease consultation for any recurrent fever spikes. Coccyx pressure ulcer: Plastic surgery was reconsulted. Continue wound care per Plastic surgery recommendations. History of Non-Hodgkin lymphoma: s/p brain biopsy on December 13, by Neurosurgery, Dr. Marin, Pathology consistent with acute infarct without evidence of lymphoma -Seen by Oncology, Dr. Whyte, who has signed off for current admission as there are no active oncology issues DM: Hemoglobin A1c is 7.0. Continue to at bedtime Levemir with sliding scale insulin- Labile glycemic control, increase LEVEMIR dosing DVT prophylaxis: Full anticoagulation with Coumadin. INR subtherapeutic, so coumadin will be held today Discuss with mother and sister at bedside Problem Qualifiers (1) DM (diabetes mellitus): Qualified Code: E11.9 - Type 2 diabetes mellitus without complications Allegra Humphries MD Mar 07, 2016 11:22
[2016-03-07] MEDS: SULFAMETHOXAZOLE-TRIMETHOPRIM 800-160 MG/20 ML UDC PO SCH ×2 (12:20→20:00)
[2016-03-07] MEDS: ACETAMINOPHEN/HYDROcodone 325 MG/5 MG TAB PO PRN (17:05)
[2016-03-07] MEDS: RESP: ALBUTEROL 2.5 MG/IPRATROPIUM 0.5 MG NEB (PRN) NEB (17:58)
[2016-03-07] MEDS: PARoxetine HCL SUSP 20 MG/10 ML UDC PEG SCH (18:19)
[2016-03-07] MEDS: INSULIN DETEMIR 100 UNITS/ML VIAL SQ SCH (20:00)
[2016-03-08] VITALS (11 sets, daily range): BP systolic 110–125; BP diastolic 59–71; PULSE 86–121; RESP 18–21; TEMP 96–101.2; O2SAT 94–99
[2016-03-08] MEDS: ACETAMINOPHEN 650 MG/20.3 ML UDC TUBE PRN (00:10)
[2016-03-08] MEDS: INSULIN ASPART SUPPLEMENTAL SCALE SQ SCH ×5 (00:21→23:43)
[2016-03-08] MEDS: FREE WATER TUBE SCH ×7 (04:00→23:36)
[2016-03-08] MEDS: ACETIC ACID 0.25% SOLN 1000 ML IRR BTL IRRIGATION SCH ×3 (04:34→20:13)
[2016-03-08] MEDS: NYSTATIN 100,000 U/GM PWD 15 GM BTL TOPICAL SCH ×2 (09:00→20:13)
[2016-03-08] MEDS: SENNOSIDES SYRUP 8.8 MG/5 ML CUP TUBE SCH (09:00)
[2016-03-08] MEDS: METOPROLOL TARTRATE 50 MG TAB GT SCH ×3 (09:08→18:11)
[2016-03-08] MEDS: SULFAMETHOXAZOLE-TRIMETHOPRIM 800-160 MG/20 ML UDC PO SCH ×2 (09:08→20:12)
[2016-03-08] MEDS: RANITIDINE HCL SYRUP 150 MG/10 ML UDC PO SCH (09:08)
[2016-03-08] MEDS: levETIRAcetam 500 MG/5 ML UDC TUBE SCH ×2 (09:08→20:12)
[2016-03-08 09:16] LABS: INTERNATIONAL NORMALIZED RATIO 2.9 RATIO; PROTHROMBIN TIME - PATIENT 32.6 SEC (9.8-11.4)
--- NOTE | 2016-03-08 09:33 | HHI.PR ---
Subjective Remarks afib Objective Vital Signs Date Time Temp Pulse Resp B/P Pulse Ox O2 Delivery O2 Flow Rate FiO2 03/08/16 08:06 96.0 114 18 119/71 99 03/08/16 04:07 96.4 104 20 120/70 95 03/08/16 01:24 101.2 03/08/16 00:35 101.1 121 20 125/59 94 03/07/16 22:03 96.8 121 19 129/95 100 03/07/16 21:19 96 T-piece 5.00 28 03/07/16 21:19 96 T-piece 5.00 28 03/07/16 20:45 96.7 104 21 122/63 95 03/07/16 20:00 98 T-Piece 28 03/07/16 17:57 100 T-piece 6.00 28 03/07/16 16:06 99.5 100 18 120/65 98 03/07/16 12:06 96.9 95 18 111/66 98 03/07/16 11:57 100 Humidified 28 I/O 03/07/16 03/07/16 03/07/16 03/08/16 03/08/16 03/08/16 07:00 15:00 23:00 07:00 15:00 23:00 Intake Total 800 ml 0 ml 432 ml Output Total 1550 ml 525 ml 200 ml 650 ml Balance -750 ml -525 ml -200 ml -218 ml Intake Oral 0 ml 0 ml 0 ml Tube Feeding 432 ml Tube Irrigant 800 ml Output Urine Total 1550 ml 525 ml 200 ml 650 ml # Voids 0 # Bowel Movements 0 0 Result Diagram: 03/06/16 0607 Objective Remarks pupil = awake and blinks eyes to command i see no movemnt below neck today and cannot stick out tongue or move lue still Assessment and Plan Assessment and Plan mrv shows basilar occlusion and mri shows sign bilat occipital and some small r cbllr acute cva the colin is slightly hyperintense almost full thickness and looks like major pontine infarct however not as bright as we usually see with infarct he could have a penumbra effect in colin so could be recoverable or just needs time to change signal plan is to keep bp up recheck mri friday if more bright then family thinking of decisions no sedatives i rec chemical code only will consider we discussed and we will keep anticoag going for now and i told her risk of bleeding into upper brain with some blood signal in original cva i dw dr vick and nitin cancino and neither felt it would be helpful to try and extract basilar clot and could kill him they both felt the colin was infarcted he could be locked in he is acting as if colin is infarcted although slight chance it could be stunned/ penumbra neuro will follow over i will be back 12/25/15 i dw family at length and reviewed films with them no major change in brainstem brightness on mri inr 3.5 target 2-2.5 i think they would like to see how he does over the next 3 months and will probably go for trach if needed and peg he is locked in for the most part but full aware 12/26/15 inr 2.6 i dw son yest had some vertical eye movements to command monitor 12/27/15 locked in so he can hear all that is said family devoted and i expect peg+/-trach and they will see how he does next 6 months inr 2.4 doesnt always respond as will not awaken as quick as others 12/29/15 doing more with eyes locked in for trach and peg coumadin management per med team for that sq hep ok if need off coumadin for trach ------ 12/31/15 stable neuro for trach peg tues i dw daughter 01/04/16 asleep now sedation last two days with trach and peg could affect his neuro fxt will dw family needs coumadin restarted bp a little low try and keep >120/ if possible 01/26/16 STABLE NEURO LOCKED IN NO MAJOR CHANGE OK TO REHAB BY ME ---- 02/17/16 locked in no major change inr good stable neuro 03/05/16 no change really family states he has not moved left hand for two weeks and has decubitus will see if can get special bed and have would nurse come by today i dw family( not present today) that they need to ask him at some point if he wants to live like this they are not prepared to do so at this time overall basically stable neuro will recheck mri 03/08/16 famil saw some tremor overnoc none now no higginbotham e in exam or mri/a continue coumadin ok fu eeg if eeg abn [facility] [place] i doubt sz will fu friday Steven De Leon MD Mar 08, 2016 09:33
--- NOTE | 2016-03-08 12:46 | HHI.PR ---
Subjective Remarks Patient seen with family and RN at bedside. They state that the patient had a fever overnight. They state that yesterday he had 2 episodes of shaking, however these sound more like chills than seizures. The patient is awake and alert, but not really moving eyes much to questioning today. No other issues. Objective Vitals Vital Signs Date Time Temp Pulse Resp B/P Pulse Ox O2 Delivery O2 Flow Rate FiO2 03/08/16 10:37 97 T-piece 5.00 28 03/08/16 10:35 97 T-piece 5.00 28 03/08/16 08:06 96.0 114 18 119/71 99 03/08/16 04:07 96.4 104 20 120/70 95 03/08/16 01:24 101.2 03/08/16 00:35 101.1 121 20 125/59 94 03/07/16 22:03 96.8 121 19 129/95 100 03/07/16 21:19 96 T-piece 5.00 28 03/07/16 21:19 96 T-piece 5.00 28 03/07/16 20:45 96.7 104 21 122/63 95 03/07/16 20:00 98 T-Piece 28 03/07/16 17:57 100 T-piece 6.00 28 03/07/16 16:06 99.5 100 18 120/65 98 I/O 03/07/16 03/07/16 03/07/16 03/08/16 03/08/16 03/08/16 07:00 15:00 23:00 07:00 15:00 23:00 Intake Total 800 ml 0 ml 432 ml 400 ml Output Total 1550 ml 525 ml 200 ml 650 ml Balance -750 ml -525 ml -200 ml -218 ml 400 ml Intake Oral 0 ml 0 ml 0 ml Tube Feeding 432 ml Tube Irrigant 800 ml Other 400 ml Output Urine Total 1550 ml 525 ml 200 ml 650 ml # Voids 0 # Bowel Movements 0 0 Result Diagram: 03/06/1607 Objective Remarks GENERAL: Well-developed well-nourished. In no acute distress. SKIN: Warm and dry. Stage IV sacral ulcer. HEENT: Normocephalic. Pupils equal and round. Mucous membranes pink and moist. Trach in place. CARDIOVASCULAR: Controlled but irregular rate and irregular rhythm. No murmur appreciated. RESPIRATORY: No accessory muscle use. Clear to auscultation. Breath sounds equal bilaterally. No crackles noted today. GASTROINTESTINAL: Abdomen soft, non-tender, nondistended. Bowel sounds x4. PEG in place. MUSCULOSKELETAL: No obvious deformities. No clubbing or cyanosis. No edema. NEUROLOGICAL: Awake and alert. Eyes open, moves eyes and blinks to answer questions. Locked in. Nonverbal. 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 Significant residual cognitive deficit. Non verbal. 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 MRI/MRA from 03/05 noted. -Continue Keppra and Coumadin- Palliative care following. Monitor on Keppra. -03/08 some episodes of shaking noted yesterday, EEG and Keppra level ordered. Neurology saw the patient today and doubts seizures. GI/Nutrition: Had some issues with PEG tube clogged presumable from Lactinex. This was exchanged by GI at bedside and Lactinex was discontinued. Nepro tube feedings as recommended by dietitian for sodium content. -Continue Nepro at 55 cc/hr per dietitian recommendations. Respiratory failure: Secondary to CVA. Patient is status post tracheostomy. Continue pulmonary toilet and neb treatments as needed. Pulmonary following. - Occasional Blood-tinged secretion around the trach. Trach care per pulmonology. Continue to monitor Depression: Discussed with palliative care Dr. Avilez. Patient started on antidepressives. A-fib: continue Lopressor, warfarin with INR/PT monitoring. Echocardiogram completed in November shows preserved EF. On Coumadin, pharmacy to dose. Monitor heart rate and consider adding Cardizem. UTI: Urine culture grew Klebsiella. Patient completed ceftriaxone course. Exchanged Arevalo catheter ordered 02/15. Coccyx pressure ulcer: Plastic surgery was reconsulted. Continue wound care per Plastic surgery recommendations. History of Non-Hodgkin lymphoma: s/p brain biopsy on December 13, by Neurosurgery, Dr. Marin, Pathology consistent with acute infarct without evidence of lymphoma -Seen by Oncology, Dr. Whyte, who has signed off for current admission as there are no active oncology issues DM: Hemoglobin A1c is 7.0. Continue Levemir with sliding scale insulin- monitor and adjust the regimen as needed. Recurrent fevers: Patient recurrent fevers again overnight, which have been happening intermittently over the past several days. CBCs have showed no infectious changes. Blood cultures from 03/03 showed gram-negative rods and 1/ bottles, started on oral Bactrim, repeat blood cultures 03/06 with NGTD. Urine culture 03/06 with no growth. Chest x-ray 03/03 looks improved from previous. Sacral wound clean. Vital signs are currently stable. ID consulted. DVT prophylaxis: Full anticoagulation with Coumadin. INR therapeutic Plan of care discussed with Dr. Rucker Discharge Planning Patient will need placement. Discussed with case management, SSI pending. Problem Qualifiers (1) DM (diabetes mellitus): Qualified Code: E11.9 - Type 2 diabetes mellitus without complications Floyd Vinson Mar 08, 2016 12:46
--- NOTE | 2016-03-08 14:24 | HHI.IDPN ---
Subjective Subjective Remarks Chart reviewed Patient is a 60-year-old male admitted to the hospital December 20 and was diagnosed to have CVA. He was on the respirator for a while and underwent placement of a tracheostomy. He was eventually weaned off the vent and has been doing well on T piece. Patient has been treated for different infections including Klebsiella pneumonia, sputum from December 27, Klebsiella UTI urine culture from January 31. He also had 1 positive blood culture on admission with staph simulans which is felt to be a contaminant. Patient initially seen by infectious disease on the latter part of December for fevers, and no other etiology was found and it was felt that it could possibly be central fevers. Patient temperatures have been within normal limits up until about 5 days ago when he started having fevers again. He had a chest x- ray which did not show any new pneumonia, urinalysis was unremarkable. He doesn 't have any central line. There was also no evidence of DVT clinically on his lower extremity. Cultures were done, and one of the blood culture from March 03 had gram-negative buck in the anaerobic bottle but it did not grow into solid media, and no further ID could be done. Patient was started on Bactrim 2 days ago. He continues to be febrile. His WBC is normal. There's been no record of any diarrhea. Patient still has the Arevalo catheter in place. He has a very moist cough and secretions are cel[place] to light yellow in color, and looks thick. Infectious disease reevaluation has been requested for the persistent fevers. Antibiotics Anti-biotics include Bactrim Other medications Tylenol [place] Albuterol Insulin Keppra Ativan Lopressor Paxil Zantac Senna Coumadin Lines Peripheral IV Past Medical History Hypertension. Stage III non-Hodgkin's lymphoma. Diabetes mellitus. Paroxysmal atrial fibrillation. Brain biopsy in Nov, 2015. History of left arm surgery. Allergies: Coded Allergies: No Known Allergies (Verified , 12/21/15) Objective . Vital Signs Date Time Temp Pulse Resp B/P Pulse Ox O2 Delivery O2 Flow Rate FiO2 03/08/16 13:39 97 Humidified 28 03/08/16 13:22 110 03/08/16 12:08 99.2 104 18 115/67 97 03/08/16 10:37 97 T-piece 5.00 28 03/08/16 10:35 97 T-piece 5.00 28 03/08/16 08:06 96.0 114 18 119/71 99 03/08/16 04:07 96.4 104 20 120/70 95 03/08/16 01:24 101.2 03/08/16 00:35 101.1 121 20 125/59 94 03/07/16 22:03 96.8 121 19 129/95 100 03/07/16 21:19 96 T-piece 5.00 28 03/07/16 21:19 96 T-piece 5.00 28 03/07/16 20:45 96.7 104 21 122/63 95 03/07/16 20:00 98 T-Piece 28 03/07/16 17:57 100 T-piece 6.00 28 03/07/16 16:06 99.5 100 18 120/65 98 03/07/16 03/07/16 03/08/16 15:00 23:00 07:00 Intake Total 0 ml 432 ml Output Total 525 ml 200 ml 650 ml Balance -525 ml -200 ml -218 ml Intake Oral 0 ml 0 ml Tube Feeding 432 ml Output Urine Total 525 ml 200 ml 650 ml # Voids 0 # Bowel Movements 0 0 . Microbiology Date/Time Procedure Status Source Growth 03/06/16 10:54 Aerobic Blood Culture - Preliminary Resulted Blood Peripheral NO GROWTH IN 2 DAYS 03/06/16 10:54 Anaerobic Blood Culture - Preliminary Resulted Blood Peripheral NO GROWTH IN 2 DAYS 03/06/16 11:12 Aerobic Blood Culture - Preliminary Resulted Blood Peripheral NO GROWTH IN 2 DAYS 03/06/16 11:12 Anaerobic Blood Culture - Preliminary Resulted Blood Peripheral NO GROWTH IN 2 DAYS 03/06/16 12:15 Urine Culture - Final Complete Urine Catheterized Urine NO GROWTH IN 48 HOURS. Imaging RADIOLOGY STUDIES/FILMS REVIEWED Head Magnetic Resonance Angiography 03/05/16 0000 Signed Impressions: Service Date/Time: Saturday, March 05, 2016 09:26 - CONCLUSION: Persistent high-grade subtotal occlusive stenotic lesions in the distal right vertebral artery and proximal basilar artery with significant improvement in flow and recanalization following initial presentation of thrombosis. Stable interstitial circulation without significant stenosis. 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 There is decreasing restricted diffusion and increasing loss of volume characteristic of a subacute to chronic infarct. No evidence of acute infarct, acute hemorrhage mass or edema. Ernesto Kulkarni MD Chest X-Ray 03/03/16 0000 Signed Impressions: Service Date/Time: Thursday, March 03, 2016 10:41 - CONCLUSION: Improving right lower lung infiltrate. Otherwise, the lungs are clear bilaterally. Michael Hamilton MD Head CT 01/16/16 0000 Signed Impressions: Service Date/Time: Saturday, January 16, 2016 10:51 - CONCLUSION: No extensive low density in the brainstem colin more prominent in the right the left extending into the right middle cerebellar peduncle consistent with brainstem infarct nonhemorrhagic acute Wellington West MD Abdomen X-Ray 01/14/16 0000 Signed Impressions: Service Date/Time: Thursday, January 14, 2016 10:19 - CONCLUSION: Moderate stool; otherwise, negative. 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 No evidence of carotid stenosis. Glen Zamora MD Head/Brain Mag Res Venography 12/22/15 0000 Signed Impressions: Service Date/Time: Tuesday, December 22, 2015 09:22 - CONCLUSION: Normal MRV. Jonel Jones Jr., MD Physical Exam GENERAL: Patient is an obese, well-developed male, opens eyes when stimulated , not following any commands, not focusing or tracking. He has a very moist cough. He is not in respiratory distress. SKIN: Warm and dry. No rash generalized and no evidence of embolic lesions. HEAD, EYES, EARS, NOSE AND THROAT : Normocephalic. [place] conjunctiva. Pupils equal and round. No scleral icterus. No injection or drainage. No nasal discharge. Mucous membranes pink and moist. NECK: Tracheostomy site looks okay. Supple and not tender, no meningeal signs CARDIOVASCULAR: Regular rate and rhythm. No murmur or rub. RESPIRATORY: Breath sounds equal bilaterally. Has diffuse rhonchi. Decreased breath sounds at the bases. ABDOMEN: Soft, obese, non-tender, nondistended. Bowel sounds present and normoactive. No guarding. No organomegaly. PEG site looks okay. EXTREMITIES: No clubbing, cyanosis, or edema. No joint effusions. NEUROLOGICAL: Opens eyes when stimulated, no interaction. He is not focusing or tracking. PSYCH: Unable to assess ; all in place, urine looks clear LINE: Peripheral IV with no evidence of infection Assessment & Plan Remarks IMPRESSION Recurrent fevers, etiology - UA ok - CXR 03/03 ok, but he sounds very congested, ?tracheobronchitis, ? plugging - no lines - no diarrhea - had one (+) BC, did not grown on solid media, ?real, ?anaerobe CVA, with significant neurologic sequela Hx NHL RECOMMENDATION Repeat blood culture Check LFTs Repeat chest x-ray Sputum Gram stain and culture Continue Bactrim for now Add Flagyl Follow cultures Monitor temps Monitor progress Will determine course of anti-biotic therapy depending on the results of the workup and his clinical progress Spoke with family D/W Emma Max MD Mar 08, 2016 14:24
[2016-03-08] MEDS: PARoxetine HCL SUSP 20 MG/10 ML UDC PEG SCH (18:11)
[2016-03-08] MEDS: metroNIDAZOLE 500 MG TAB PO SCH ×2 (18:11→23:36)
[2016-03-08] MEDS: INSULIN DETEMIR 100 UNITS/ML VIAL SQ SCH (20:13)
[2016-03-09] VITALS (9 sets, daily range): BP systolic 104–148; BP diastolic 59–82; PULSE 87–105; RESP 14–24; TEMP 97.5–98.9; O2SAT 95–100
[2016-03-09 00:10] LABS: ALT (GPT) 16 U/L (12-78); AST (GOT) 15 U/L (15-37)
[2016-03-09 00:12] LABS: ALKALINE PHOSPHATASE 84 U/L (45-117); INDIRECT BILIRUBIN 0.1 MG/DL (0.0-0.8); TOTAL BILIRUBIN ADULT 0.2 MG/DL (0.2-1.0)
[2016-03-09] MEDS: FREE WATER TUBE SCH ×5 (03:41→20:00)
[2016-03-09] MEDS: INSULIN ASPART SUPPLEMENTAL SCALE SQ SCH ×3 (03:42→17:52)
[2016-03-09] MEDS: ACETIC ACID 0.25% SOLN 1000 ML IRR BTL IRRIGATION SCH ×3 (03:42→21:43)
[2016-03-09 07:37] LABS: INTERNATIONAL NORMALIZED RATIO 1.8 RATIO; PROTHROMBIN TIME - PATIENT 19.7 SEC (9.8-11.4)
--- NOTE | 2016-03-09 08:30 | RADRPT ---
EXAM DATE/TIME: 03/09/2016 07:54 [facility] COMPARISON: CHEST SINGLE AP, March 03, 2016, 10:41. INDICATIONS : Cough, fever. MEDICAL HISTORY : Hypertension. Diabetes mellitus type II. Lymphoma SURGICAL HISTORY : None. ENCOUNTER: Subsequent ACUITY: 1 week PAIN SCORE: Non-responsive. LOCATION: Bilateral chest FINDINGS: A single view of the chest demonstrates patchy right basilar infiltrates. Left lung clear. Tracheosto my tube unchanged. Heart normal in size. The cardiomediastinal contours are unremarkable. Osseous s tructures are intact. CONCLUSION: Worsening right basilar patchy infiltrate. Mikie Vargas MD on March 09, 2016 at 8:27 Board Certified Radiologist. This report was verified electronically.
[2016-03-09] MEDS: SENNOSIDES SYRUP 8.8 MG/5 ML CUP TUBE SCH (09:00)
[2016-03-09] MEDS: SODIUM CHLORIDE 0.9% FLUSH 5 ML FLUSH IVF PRN (09:23)
[2016-03-09] MEDS: SULFAMETHOXAZOLE-TRIMETHOPRIM 800-160 MG/20 ML UDC PO SCH ×2 (09:24→21:36)
[2016-03-09] MEDS: levETIRAcetam 500 MG/5 ML UDC TUBE SCH ×2 (09:24→21:36)
[2016-03-09] MEDS: METOPROLOL TARTRATE 50 MG TAB GT SCH ×3 (09:27→17:20)
[2016-03-09] MEDS: metroNIDAZOLE 500 MG TAB PO SCH ×2 (09:28→17:20)
[2016-03-09] MEDS: RANITIDINE HCL SYRUP 150 MG/10 ML UDC PO SCH (09:31)
[2016-03-09] MEDS: NYSTATIN 100,000 U/GM PWD 15 GM BTL TOPICAL SCH ×2 (09:37→21:00)
--- NOTE | 2016-03-09 10:56 | HHI.PR ---
Subjective Remarks Family was at the bedside. The patient was resting comfortably. He was about to have a new IV placed. No acute concerns. Family was wondering if blood culture results or EEG were available yet Objective Vitals Vital Signs Date Time Temp Pulse Resp B/P Pulse Ox O2 Delivery O2 Flow Rate FiO2 03/09/16 08:19 100 T-piece 28 03/09/16 08:19 100 28 03/09/16 08:06 98.4 105 20 119/59 99 03/09/16 04:07 97.5 96 20 125/69 97 03/09/16 00:30 98.9 91 18 120/75 95 03/08/16 20:17 98.2 86 21 119/65 98 03/08/16 20:13 99 T-Piece 28 Humidified 03/08/16 19:50 96 T-piece 6.00 28 03/08/16 19:50 96 T-piece 6.00 28 03/08/16 16:06 98.4 92 18 110/60 96 03/08/16 13:39 97 Humidified 28 03/08/16 13:22 110 03/08/16 12:08 99.2 104 18 115/67 97 I/O 03/08/16 03/08/16 03/08/16 03/09/16 03/09/16 03/09/16 06:59 14:59 22:59 06:59 14:59 22:59 Intake Total 432 ml 800 ml 0 ml Output Total 650 ml 1 ml 1850 ml 950 ml Balance -218 ml 799 ml -1850 ml -950 ml Intake Oral 0 ml 0 ml Tube Feeding 432 ml Other 800 ml Output Urine Total 650 ml 1850 ml 950 ml Stool Total 1 ml # Voids 0 # Bowel Movements 0 2 2 Result Diagram: 03/06/16 0607 Imaging Last Impressions Chest X-Ray 03/09/16 0000 Signed Impressions: Service Date/Time: Wednesday, March 09, 2016 07:54 - CONCLUSION: Worsening right basilar patchy infiltrate. Mikie Vargas MD Head Magnetic Resonance Angiography 03/05/16 0000 Signed Impressions: Service Date/Time: Saturday, March 05, 2016 09:26 - CONCLUSION: Persistent high-grade subtotal occlusive stenotic lesions in the distal right vertebral artery and proximal basilar artery with significant improvement in flow and recanalization following initial presentation of thrombosis. Stable interstitial circulation without significant stenosis. 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 There is decreasing restricted diffusion and increasing loss of volume characteristic of a subacute to chronic infarct. No evidence of acute infarct, acute hemorrhage mass or edema. Ernesto Kulkarni MD Head CT 01/16/16 0000 Signed Impressions: Service Date/Time: Saturday, January 16, 2016 10:51 - CONCLUSION: No extensive low density in the brainstem colin more prominent in the right the left extending into the right middle cerebellar peduncle consistent with brainstem infarct nonhemorrhagic acute Wellington West MD Abdomen X-Ray 01/14/16 0000 Signed Impressions: Service Date/Time: Thursday, January 14, 2016 10:19 - CONCLUSION: Moderate stool; otherwise, negative. 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 No evidence of carotid stenosis. Glen Zamora MD Head/Brain Mag Res Venography 12/22/15 0000 Signed Impressions: Service Date/Time: Tuesday, December 22, 2015 09:22 - CONCLUSION: Normal MRV. Jonel Jones Jr., MD Objective Remarks GENERAL: Well-developed well-nourished. In no acute distress. SKIN: Warm and dry. Stage IV sacral ulcer. HEENT: Normocephalic. Pupils equal and round. Mucous membranes pink and moist. Trach in place. CARDIOVASCULAR: Irregular rate and irregular rhythm. No murmur appreciated. RESPIRATORY: Diffuse rhonchi. GASTROINTESTINAL: Abdomen soft, non-tender, nondistended. Bowel sounds x4. PEG in place. MUSCULOSKELETAL: No obvious deformities. No clubbing or cyanosis. No edema. NEUROLOGICAL: Awake and alert. Eyes open, moves eyes and blinks to answer questions. Locked in. Nonverbal. Procedures 01/02/16 PEG placement 01/02/16 tracheostomy Medications and IVs Current Medications Medications (Trade) Dose Ordered Sig/Junior Route Start Time Stop Time Status Last Admin (NS Flush) 2 ml UNSCH PRN IVF 12/21/15 06:00 03/09/16 09:23 (D50w (Vial) Inj) 25 ml UNSCH PRN IV PUSH 12/21/15 13:00 (Glucagon Inj) 1 mg UNSCH PRN OTHER 12/21/15 13:00 (Keppra Liq) 500 mg Q12HR TUBE 12/27/15 21:00 03/09/16 09:24 (Colace Liq) 100 mg Q12HR TUBE 12/27/15 21:00 Hold 01/15/16 09:01 (Tylenol 650 Mg/ 20 ml Liq) 650 mg Q6H PRN TUBE 12/30/15 15:15 03/08/16 00:10 ([place] 5-325 Mg) 1 tab Q6H PRN PO 12/31/15 15:00 03/07/16 17:05 Insulin Aspart 1 1 Q6HR SQ 01/04/16 12:00 03/09/16 03:42 (Coumadin Consult Pharmacy) 0 ml @ 0 mls/hr UNSCH XX 01/04/16 12:30 (Mycostatin Powder) 1 applic Q12HR TOPICAL 01/08/16 21:00 03/09/16 09:37 (Lopressor) 75 mg TID GT 01/14/16 09:00 03/09/16 09:27 (Pill Splitter) 1 ea UNSCH PRN OTHER 01/14/16 08:30 (Zantac Liq) 150 mg Q24H PO 01/18/16 09:00 03/09/16 09:31 (Free Water) 400 ml Q4HR TUBE 01/19/16 12:00 03/09/16 08:00 (Acetic Acid 0.25% Irr Btl) 10 ml Q8HR IRRIGATION 02/05/16 16:00 03/09/16 03:42 (Senna Liq) 8.8 mg DAILY TUBE 02/21/16 09:00 03/05/16 10:35 (Paxil Liq) 20 mg DAILY@1900 PEG 02/26/16 19:00 03/08/16 18:11 (Levemir Inj) 30 units HS SQ 03/06/16 21:00 03/08/16 20:13 (Bactrim 800-160 Mg/20 ml Liq) 20 ml Q12HR PO 03/07/16 11:15 03/14/16 11:14 03/09/16 09:24 (Ativan Inj) 0.5 mg Q4H PRN IV PUSH 03/07/16 23:00 (Flagyl) 500 mg Q8H PO 03/08/16 17:00 03/09/16 09:28 (Coumadin) 2 mg DAILY@16 PO 03/09/16 16:00 A/P Problem List: (1) CVA (cerebral vascular accident) Status: Acute (2) A-fib Status: Chronic (3) DM (diabetes mellitus) Status: Chronic Assessment and Plan CVA (cerebral vascular accident): 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 Significant residual cognitive deficit. Non verbal. 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 MRI/MRA from 03/05 noted. -Continue Keppra and Coumadin- Palliative care following. Monitor on Keppra. -03/08 some episodes of shaking noted, EEG and Keppra level ordered. Neurology saw the patient today and doubts seizures. GI/Nutrition: Had some issues with PEG tube clogged presumable from Lactinex. This was exchanged by GI at bedside and Lactinex was discontinued. Nepro tube feedings as recommended by dietitian for sodium content. -Continue Nepro at 55 cc/hr per dietitian recommendations. Respiratory failure: Secondary to CVA. Patient is status post tracheostomy. Continue pulmonary toilet and neb treatments as needed. Pulmonary following. - Occasional Blood-tinged secretion around the trach. Trach care per pulmonology. Continue to monitor. CXR with worsening infiltrate. Depression: Discussed with palliative care Dr. Avilez. Patient started on antidepressives. A-fib: continue Lopressor, warfarin with INR/PT monitoring. Echocardiogram completed in November shows preserved EF. On Coumadin, pharmacy to dose. Monitor heart rate and consider adding Cardizem. UTI: Urine culture grew Klebsiella. Patient completed ceftriaxone course. Exchanged Arevalo catheter ordered 02/15. Coccyx pressure ulcer: Plastic surgery was reconsulted. Continue wound care per Plastic surgery recommendations. History of Non-Hodgkin lymphoma: s/p brain biopsy on December 13, by Neurosurgery, Dr. Marin, Pathology consistent with acute infarct without evidence of lymphoma -Seen by Oncology, Dr. Whyte, who has signed off for current admission as there are no active oncology issues DM: Hemoglobin A1c is 7.0. Continue Levemir with sliding scale insulin- monitor and adjust the regimen as needed. Recurrent fevers: Patient recurrent fevers again overnight, which have been happening intermittently over the past several days. CBCs have showed no infectious changes. Blood cultures from 03/03 showed gram-negative rods and 1/4 bottles, started on oral Bactrim, repeat blood cultures 03/06 with NGTD. Urine culture 03/06 with no growth. Chest x-ray 03/03 looks improved from previous. Sacral wound clean. Vital signs are currently stable. ID consulted. Follow up with ID in regards to worsening infiltrate on CXR 03/09. DVT prophylaxis: Full anticoagulation with Coumadin. INR therapeutic Discharge Planning Awaiting clinical improvement. Problem Qualifiers (1) DM (diabetes mellitus): Qualified Code: E11.9 - Type 2 diabetes mellitus without complications Gerald Calhoun DO Mar 09, 2016 10:56
[2016-03-09 14:36] LABS: HEMATOCRIT 28.6 % (39.0-51.0); MEAN CELL VOLUME 73.9 FL (80.0-100.0); MEAN CORPUSCULAR HEMOGLOBIN 24.5 PG (27.0-34.0); MEAN CORPUSCULAR HGB CONC 33.1 % (32.0-36.0); PLATELET COUNT 255 TH/MM3 (150-450); RED BLOOD COUNT 3.87 MIL/MM3 (4.50-5.90); RED CELL DISTRIBUTION WIDTH 17.8 % (11.6-17.2); WHITE BLOOD COUNT 6.4 TH/MM3 (4.0-11.0)
[2016-03-09 14:39] LABS: REVIEW FLAG FINAL
[2016-03-09 14:43] LABS: BICARBONATE 28.2 MEQ/L (21.0-32.0); POTASSIUM 3.5 MEQ/L (3.5-5.1)
[2016-03-09] MEDS: PARoxetine HCL 20 MG TAB PEG SCH (19:00)
[2016-03-09] MEDS: INSULIN DETEMIR 100 UNITS/ML VIAL SQ SCH (21:37)
[2016-03-10] VITALS (9 sets, daily range): BP systolic 116–143; BP diastolic 64–78; PULSE 80–110; RESP 20–22; TEMP 96.6–98.9; O2SAT 94–100
[2016-03-10] MEDS: metroNIDAZOLE 500 MG TAB PO SCH ×3 (03:03→17:43)
[2016-03-10] MEDS: FREE WATER TUBE SCH ×6 (03:09→20:00)
[2016-03-10] MEDS: ACETIC ACID 0.25% SOLN 1000 ML IRR BTL IRRIGATION SCH ×3 (05:45→20:18)
[2016-03-10] MEDS: INSULIN ASPART SUPPLEMENTAL SCALE SQ SCH ×4 (05:45→17:41)
[2016-03-10 07:31] LABS: INTERNATIONAL NORMALIZED RATIO 1.6 RATIO; PROTHROMBIN TIME - PATIENT 16.9 SEC (9.8-11.4)
[2016-03-10] MEDS: METOPROLOL TARTRATE 50 MG TAB GT SCH ×3 (09:12→17:43)
[2016-03-10] MEDS: RANITIDINE HCL SYRUP 150 MG/10 ML UDC PO SCH (09:12)
[2016-03-10] MEDS: SULFAMETHOXAZOLE-TRIMETHOPRIM 800-160 MG/20 ML UDC PO SCH ×2 (09:12→20:18)
[2016-03-10] MEDS: NYSTATIN 100,000 U/GM PWD 15 GM BTL TOPICAL SCH ×2 (09:12→20:18)
[2016-03-10] MEDS: levETIRAcetam 500 MG/5 ML UDC TUBE SCH ×2 (09:12→20:18)
[2016-03-10] MEDS: SENNOSIDES SYRUP 8.8 MG/5 ML CUP TUBE SCH (09:12)
--- NOTE | 2016-03-10 09:43 | HHI.PR ---
Subjective Remarks The patient appeared to be resting comfortably. He had earbuds in and was listening to music. Family was at bedside. Objective Vitals Vital Signs Date Time Temp Pulse Resp B/P Pulse Ox O2 Delivery O2 Flow Rate FiO2 03/10/16 09:14 99 T-Piece 6.00 21 03/10/16 08:19 98.3 110 20 119/71 98 03/10/16 04:34 98.9 106 22 134/77 97 03/10/16 04:16 98 T-Piece 28 03/10/16 00:34 97.6 105 22 120/74 96 03/09/16 20:56 97 T-piece 28 03/09/16 20:56 97 T-piece 28 03/09/16 20:40 97.9 93 24 104/61 97 03/09/16 19:00 87 03/09/16 17:11 97.9 101 16 148/82 100 03/09/16 15:08 100 T-Piece 6.00 28 03/09/16 12:00 97.8 90 14 118/77 100 I/O 03/09/16 03/09/16 03/09/16 03/10/16 03/10/16 03/10/16 07:00 15:00 23:00 07:00 15:00 23:00 Intake Total 0 ml 800 ml 855 ml 1210 ml Output Total 950 ml 1250 ml 950 ml 1300 ml Balance -950 ml -450 ml -95 ml -90 ml Intake Oral 0 ml 0 ml 0 ml Tube Feeding 455 ml 410 ml Other 800 ml 400 ml 800 ml Output Urine Total 950 ml 1250 ml 950 ml 1300 ml # Bowel Movements 2 1 1 Result Diagram: 03/09/16 1416 03/09/16 1416 Imaging Last Impressions Chest X-Ray 03/09/16 0000 Signed Impressions: Service Date/Time: Wednesday, March 09, 2016 07:54 - CONCLUSION: Worsening right basilar patchy infiltrate. Mikie Vargas MD Head Magnetic Resonance Angiography 03/05/16 0000 Signed Impressions: Service Date/Time: Saturday, March 05, 2016 09:26 - CONCLUSION: Persistent high-grade subtotal occlusive stenotic lesions in the distal right vertebral artery and proximal basilar artery with significant improvement in flow and recanalization following initial presentation of thrombosis. Stable interstitial circulation without significant stenosis. 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 There is decreasing restricted diffusion and increasing loss of volume characteristic of a subacute to chronic infarct. No evidence of acute infarct, acute hemorrhage mass or edema. Ernesto Kulkarni MD Head CT 01/16/16 0000 Signed Impressions: Service Date/Time: Saturday, January 16, 2016 10:51 - CONCLUSION: No extensive low density in the brainstem colin more prominent in the right the left extending into the right middle cerebellar peduncle consistent with brainstem infarct nonhemorrhagic acute Wellington West MD Abdomen X-Ray 01/14/16 0000 Signed Impressions: Service Date/Time: Thursday, January 14, 2016 10:19 - CONCLUSION: Moderate stool; otherwise, negative. 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 No evidence of carotid stenosis. Glen Zamora MD Head/Brain Mag Res Venography 12/22/15 0000 Signed Impressions: Service Date/Time: Tuesday, December 22, 2015 09:22 - CONCLUSION: Normal MRV. Jonel Jones Jr., MD Objective Remarks GENERAL: Well-developed well-nourished. In no acute distress. SKIN: Warm and dry. Stage IV sacral ulcer. HEENT: Normocephalic. Pupils equal and round. Mucous membranes pink and moist. Trach in place. CARDIOVASCULAR: Irregular rate and irregular rhythm. No murmur appreciated. RESPIRATORY: Diffuse rhonchi. GASTROINTESTINAL: Abdomen soft, non-tender, nondistended. Bowel sounds x4. PEG in place. MUSCULOSKELETAL: No obvious deformities. No clubbing or cyanosis. No edema. NEUROLOGICAL: Awake and alert. Eyes open, moves eyes and blinks to answer questions. Locked in. Nonverbal. Procedures 01/02/16 PEG placement 01/02/16 tracheostomy Medications and IVs Current Medications Medications (Trade) Dose Ordered Sig/Junior Route Start Time Stop Time Status Last Admin (NS Flush) 2 ml UNSCH PRN IVF 12/21/15 06:00 03/09/16 09:23 (D50w (Vial) Inj) 25 ml UNSCH PRN IV PUSH 12/21/15 13:00 (Glucagon Inj) 1 mg UNSCH PRN OTHER 12/21/15 13:00 (Keppra Liq) 500 mg Q12HR TUBE 12/27/15 21:00 03/09/16 21:36 (Colace Liq) 100 mg Q12HR TUBE 12/27/15 21:00 Hold 01/15/16 09:01 (Tylenol 650 Mg/ 20 ml Liq) 650 mg Q6H PRN TUBE 12/30/15 15:15 03/08/16 00:10 ([place] 5-325 Mg) 1 tab Q6H PRN PO 12/31/15 15:00 03/07/16 17:05 Insulin Aspart 1 1 Q6HR SQ 01/04/16 12:00 03/10/16 05:45 (Coumadin Consult Pharmacy) 0 ml @ 0 mls/hr UNSCH XX 01/04/16 12:30 (Mycostatin Powder) 1 applic Q12HR TOPICAL 01/08/16 21:00 03/09/16 21:00 (Lopressor) 75 mg TID GT 01/14/16 09:00 03/09/16 17:20 (Pill Splitter) 1 ea UNSCH PRN OTHER 01/14/16 08:30 (Zantac Liq) 150 mg Q24H PO 01/18/16 09:00 03/09/16 09:31 (Free Water) 400 ml Q4HR TUBE 01/19/16 12:00 03/10/16 03:09 (Acetic Acid 0.25% Irr Btl) 10 ml Q8HR IRRIGATION 02/05/16 16:00 03/10/16 05:45 (Senna Liq) 8.8 mg DAILY TUBE 02/21/16 09:00 03/05/16 10:35 (Levemir Inj) 30 units HS SQ 03/06/16 21:00 03/09/16 21:37 (Bactrim 800-160 Mg/20 ml Liq) 20 ml Q12HR PO 03/07/16 11:15 03/14/16 11:14 03/09/16 21:36 (Ativan Inj) 0.5 mg Q4H PRN IV PUSH 03/07/16 23:00 (Flagyl) 500 mg Q8H PO 03/08/16 17:00 03/10/16 03:03 (Coumadin) 2 mg DAILY@16 PO 03/09/16 16:00 03/09/16 17:20 (Paxil) 20 mg DAILY@1900 PEG 03/09/16 19:00 03/09/16 19:00 A/P Problem List: (1) CVA (cerebral vascular accident) Status: Acute (2) A-fib Status: Chronic (3) DM (diabetes mellitus) Status: Chronic Assessment and Plan CVA (cerebral vascular accident): 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 Significant residual cognitive deficit. Non verbal. 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 MRI/MRA from 03/05 noted. -Continue Keppra and Coumadin- Palliative care following. Monitor on Keppra. -03/08 some episodes of shaking noted, EEG and Keppra level ordered. Neurology saw the patient today and doubts seizures. GI/Nutrition: Had some issues with PEG tube clogged presumable from Lactinex. This was exchanged by GI at bedside and Lactinex was discontinued. Nepro tube feedings as recommended by dietitian for sodium content. -Continue Nepro at 55 cc/hr per dietitian recommendations. Respiratory failure: Secondary to CVA. Patient is status post tracheostomy. Continue pulmonary toilet and neb treatments as needed. Pulmonary following. - Occasional Blood-tinged secretion around the trach. Trach care per pulmonology. Continue to monitor. CXR with worsening infiltrate. Depression: Discussed with palliative care Dr. Avilez. Patient started on antidepressives. A-fib: continue Lopressor, warfarin with INR/PT monitoring. Echocardiogram completed in November shows preserved EF. On Coumadin, pharmacy to dose. Monitor heart rate and consider adding Cardizem. UTI: Urine culture grew Klebsiella. Patient completed ceftriaxone course. Exchanged Arevalo catheter ordered 02/15. Coccyx pressure ulcer: Plastic surgery was reconsulted. Continue wound care per Plastic surgery recommendations. History of Non-Hodgkin lymphoma: s/p brain biopsy on December 13, by Neurosurgery, Dr. Marin, Pathology consistent with acute infarct without evidence of lymphoma -Seen by Oncology, Dr. Whyte, who has signed off for current admission as there are no active oncology issues DM: Hemoglobin A1c is 7.0. Continue Levemir with sliding scale insulin- monitor and adjust the regimen as needed. Recurrent fevers: Patient recurrent fevers again overnight, which have been happening intermittently over the past several days. CBCs have showed no infectious changes. Blood cultures from 03/03 showed gram-negative rods and 1/4 bottles, started on oral Bactrim, repeat blood cultures 03/06 with NGTD. Urine culture 03/06 with no growth. Chest x-ray 03/03 looks improved from previous. Sacral wound clean. Vital signs are currently stable. ID consulted. Follow up with ID in regards to worsening infiltrate on CXR 03/09. DVT prophylaxis: Full anticoagulation with Coumadin. INR therapeutic Discharge Planning Awaiting clinical improvement. Problem Qualifiers (1) DM (diabetes mellitus): Qualified Code: E11.9 - Type 2 diabetes mellitus without complications Gerald Calhoun DO Mar 10, 2016 09:43
[2016-03-10] MEDS: PARoxetine HCL 20 MG TAB PEG SCH (17:30)
[2016-03-10] MEDS: WARFARIN SOD 3 MG TAB PO SCH (17:30)
[2016-03-10] MEDS: VANCOMYCIN INJ 1,500 MG in SODIUM CHLORID 0.9% 500 ML INJ 500 ML IV SCH (17:31)
[2016-03-10] MEDS: INSULIN DETEMIR 100 UNITS/ML VIAL SQ SCH (20:18)
[2016-03-10] MEDS: METOPROLOL TARTRATE 50 MG TAB PO SCH (21:41)
[2016-03-11] VITALS (8 sets, daily range): BP systolic 113–124; BP diastolic 67–78; PULSE 82–97; RESP 18; TEMP 95.3–96.2; O2SAT 96–100
[2016-03-11] MEDS: metroNIDAZOLE 500 MG TAB PO SCH ×3 (00:37→15:57)
[2016-03-11] MEDS: VANCOMYCIN INJ 1,500 MG in SODIUM CHLORID 0.9% 500 ML INJ 500 ML IV SCH ×2 (03:46→15:57)
[2016-03-11] MEDS: FREE WATER TUBE SCH ×6 (03:46→20:00)
[2016-03-11] MEDS: ACETIC ACID 0.25% SOLN 1000 ML IRR BTL IRRIGATION SCH ×3 (04:57→21:14)
[2016-03-11] MEDS: METOPROLOL TARTRATE 50 MG TAB PO SCH ×4 (05:18→21:14)
[2016-03-11] MEDS: INSULIN ASPART SUPPLEMENTAL SCALE SQ SCH ×4 (05:56→18:00)
--- NOTE | 2016-03-11 08:06 | HHI.PR ---
Subjective Remarks Patient resting in bed comfortably with eyes closed. He does not open them to verbal stimuli at this time. No signs of distress. Vital signs stable. Objective Vitals Vital Signs Date Time Temp Pulse Resp B/P Pulse Ox O2 Delivery O2 Flow Rate FiO2 03/11/16 05:48 97 Room Air Humidified 03/11/16 04:00 96.0 92 18 120/67 97 03/11/16 01:52 96 Room Air Humidified 03/11/16 00:00 95.9 97 18 120/74 97 03/10/16 22:54 104 03/10/16 20:00 97.6 80 20 121/64 99 03/10/16 20:00 104 03/10/16 20:00 96 T-piece 6.00 03/10/16 18:01 98.1 101 20 143/78 94 03/10/16 12:28 96.6 89 20 116/73 95 03/10/16 10:42 100 Blow-by 5.00 03/10/16 10:40 100 T-piece 5.00 03/10/16 09:14 99 T-Piece 6.00 21 03/10/16 08:19 98.3 110 20 119/71 98 I/O 03/10/16 03/10/16 03/10/16 03/11/16 03/11/16 03/11/16 07:00 15:00 23:00 07:00 15:00 23:00 Intake Total 1210 ml 805 ml 1322 ml Output Total 1300 ml 1350 ml 650 ml Balance -90 ml -545 ml 672 ml Intake Oral 0 ml 0 ml 0 ml Tube Feeding 410 ml 405 ml 522 ml Other 800 ml 400 ml 800 ml Output Urine Total 1300 ml 1350 ml 650 ml # Bowel Movements 1 Result Diagram: 03/09/16 1416 03/09/16 1416 Objective Remarks GENERAL: Elderly patient, in no acute distress. SKIN: Warm and dry. No rashes generalized distribution noted. HEAD: Normocephalic. Atraumatic. EYES: No scleral icterus. No injection or drainage. NECK: Supple, trachea midline. No JVD. Tracheostomy in place CARDIOVASCULAR: Regular rate and rhythm without murmurs, gallops, or rubs. RESPIRATORY: Breath sounds equal bilaterally. No accessory muscle use. Rhonchi noted. GASTROINTESTINAL: Abdomen soft, non-tender, nondistended. Normoactive bowel sounds 4. PEG in place. MUSCULOSKELETAL: Extremities without clubbing, cyanosis, or edema. NEUROLOGICAL: Does not spontaneously move extremities, Nonverbal. 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 Significant residual cognitive deficit. -Nonverbal at this time; appears to be in a locked in state. -Continue Keppra and Coumadin- Palliative care following. Monitor Keppra, last level 03/08 was 15.4. INR 1.6 yesterday. - Neurology saw patient for episodes of shaking on 03/08, EEG and Keppra level ordered. Neurology doubt seizures. GI/Nutrition: Previous PEG tube exchanged by GI at bedside. Appreciate dietary recommendations; Nepro tube feedings for sodium content to continue at 55 mL, hour. Respiratory failure: Secondary to CVA. Patient is status post tracheostomy. Continue pulmonary toilet and neb treatments as needed. Pulmonary following. -Intermittent Blood-tinged secretion around the trach. Trach care per pulmonology. Continue to monitor. Chest x-ray with worsening infiltrate. Depression: Discussed with palliative care Dr. Avilez. Continue Paxil. A-fib: continue Lopressor, warfarin with INR/PT monitoring. Echocardiogram completed in November shows preserved EF. INR is 1.6 today. UTI: Urine culture grew Klebsiella. Patient completed ceftriaxone course. Exchange Arevalo catheter ordered 03/18. Coccyx pressure ulcer: Appreciate plastic surgery recommendations. History of Non-Hodgkin lymphoma: s/p brain biopsy on December 13, by Neurosurgery, Dr. Marin, Pathology consistent with acute infarct without evidence of lymphoma -Seen by Oncology, Dr. Whyte, who has signed off for current admission. DM: Hemoglobin A1c is 7.0. Continue Levemir with sliding scale insulin- monitor and adjust the regimen as needed. Blood sugar 139 this morning. Intermittent low grade fever-temp has been stable since 03/09. WBCs within normal limits. Blood cultures on 03/03 grew gram-negative rods in 1 out of 4 bottles, started on oral Bactrim repeat blood cultures 03/06 negative. Urine culture 03/06 negative. Chest x-ray 814 looked improved. Sacral wound was clean. Repeat chest x-ray 03/09 showed worsening infiltrate, ID consulted. Dr. Hughes recommended: Repeat blood culture, Check LFTs, Repeat chest x-ray, Sputum Gram stain and culture, Continue Bactrim for now, Add Flagyl. Blood cultures 03/08 no growth in 2 days. Sputum culture shows MRSA. Patient placed on droplet precautions. DVT prophylaxis: Full anticoagulation with Coumadin. INR therapeutic CBC BMP stable trends. Monitor as needed Care was discussed with patient, family, RN, Dr. Calhoun Problem Qualifiers (1) DM (diabetes mellitus): Qualified Code: E11.9 - Type 2 diabetes mellitus without complications Melly Collins Mar 11, 2016 08:06 Gerald Calhoun DO Mar 11, 2016 10:32
[2016-03-11 08:20] LABS: INTERNATIONAL NORMALIZED RATIO 1.7 RATIO; PROTHROMBIN TIME - PATIENT 18.3 SEC (9.8-11.4)
[2016-03-11 08:40] LABS: BICARBONATE 27.3 MEQ/L (21.0-32.0); POTASSIUM 3.6 MEQ/L (3.5-5.1)
[2016-03-11] MEDS: SENNOSIDES SYRUP 8.8 MG/5 ML CUP TUBE SCH (09:00)
[2016-03-11] MEDS: NYSTATIN 100,000 U/GM PWD 15 GM BTL TOPICAL SCH ×2 (09:00→21:15)
[2016-03-11] MEDS: RANITIDINE HCL SYRUP 150 MG/10 ML UDC PO SCH (09:00)
[2016-03-11] MEDS: levETIRAcetam 500 MG/5 ML UDC TUBE SCH ×2 (09:00→20:39)
[2016-03-11] MEDS: SULFAMETHOXAZOLE-TRIMETHOPRIM 800-160 MG/20 ML UDC PO SCH ×2 (09:00→21:13)
--- NOTE | 2016-03-11 13:45 | HHI.IDPN ---
Subjective Subjective Remarks Notes reviewed Temps better this weekend Last fever was 03/08 AM BC are negative CXR with increase R base infiltrate Started on Vanco this weekend Also on Bactrim Patient is a 60-year-old male admitted to the hospital December 20 and was diagnosed to have CVA. He was on the respirator for a while and underwent placement of a tracheostomy. He was eventually weaned off the vent and has been doing well on T piece. Patient has been treated for different infections including Klebsiella pneumonia, sputum from December 27, Klebsiella UTI urine culture from January 31. He also had 1 positive blood culture on admission with staph simulans which is felt to be a contaminant. Patient initially seen by infectious disease on the latter part of December for fevers, and no other etiology was found and it was felt that it could possibly be central fevers. Patient temperatures have been within normal limits up until about 5 days ago when he started having fevers again. Antibiotics Bactrim Vancomycin Flagyl Lines Peripheral IV Past Medical History Hypertension. Stage III non-Hodgkin's lymphoma. Diabetes mellitus. Paroxysmal atrial fibrillation. Brain biopsy in Nov, 2015. History of left arm surgery. Allergies: Coded Allergies: *MDRO Multi-Drug Resistant Organism (Verified Adverse Reaction, Unknown, ) MRSA (sputum) - 03/08/16 Objective . Vital Signs Date Time Temp Pulse Resp B/P Pulse Ox O2 Delivery O2 Flow Rate FiO2 03/11/16 08:00 96.2 84 18 113/73 97 03/11/16 07:00 T-Piece 8.00 21 03/11/16 07:00 82 03/11/16 05:48 97 Room Air Humidified 03/11/16 04:00 96.0 92 18 120/67 97 03/11/16 01:52 96 Room Air Humidified 03/11/16 00:00 95.9 97 18 120/74 97 03/10/16 22:54 104 03/10/16 20:00 97.6 80 20 121/64 99 03/10/16 20:00 104 03/10/16 20:00 96 T-piece 6.00 21 03/10/16 18:01 98.1 101 20 143/78 94 03/10/16 03/10/16 03/11/16 15:00 23:00 07:00 Intake Total 805 ml 1322 ml Output Total 1350 ml 650 ml Balance -545 ml 672 ml Intake Oral 0 ml 0 ml Tube Feeding 405 ml 522 ml Other 400 ml 800 ml Output Urine Total 1350 ml 650 ml # Bowel Movements 1 . Laboratory Tests Test 03/09/16 14:16 White Blood Count 6.4 TH/MM3 Red Blood Count 3.87 MIL/MM3 Hemoglobin 9.5 GM/DL Hematocrit 28.6 % Mean Corpuscular Volume 73.9 FL Mean Corpuscular Hemoglobin 24.5 PG Mean Corpuscular Hemoglobin 33.1 % Concent Red Cell Distribution Width 17.8 % Platelet Count 255 TH/MM3 Mean Platelet Volume 8.6 FL Laboratory Tests Test 03/09/16 03/11/16 14:16 07:49 Sodium Level 128 MEQ/L 133 MEQ/L Potassium Level 3.5 MEQ/L 3.6 MEQ/L Chloride Level 89 MEQ/L 97 MEQ/L Carbon Dioxide Level 28.2 MEQ/L 27.3 MEQ/L Anion Gap 11 MEQ/L 9 MEQ/L Blood Urea Nitrogen 14 MG/DL 14 MG/DL Creatinine 0.62 MG/DL 0.65 MG/DL Estimat Glomerular Filtration 132 ML/MIN 125 ML/MIN Rate Random Glucose 146 MG/DL 150 MG/DL Calcium Level 8.6 MG/DL 8.8 MG/DL Microbiology Date/Time Procedure Status Source Growth 03/08/16 22:36 Gram Stain - Final Resulted Sputum Endotracheal 03/08/16 22:36 Sputum Culture - Preliminary Resulted S. Aureus Mrsa 03/08/16 23:00 Aerobic Blood Culture - Preliminary Resulted Blood Peripheral NO GROWTH IN 3 DAYS 03/08/16 23:00 Anaerobic Blood Culture - Preliminary Resulted Blood Peripheral NO GROWTH IN 3 DAYS 03/08/16 23:05 Aerobic Blood Culture - Preliminary Resulted Blood Peripheral NO GROWTH IN 3 DAYS 03/08/16 23:05 Anaerobic Blood Culture - Preliminary Resulted Blood Peripheral NO GROWTH IN 3 DAYS Imaging RADIOLOGY STUDIES/FILMS REVIEWED Head Magnetic Resonance Angiography 03/05/16 0000 Signed Impressions: Service Date/Time: Saturday, March 05, 2016 09:26 - CONCLUSION: Persistent high-grade subtotal occlusive stenotic lesions in the distal right vertebral artery and proximal basilar artery with significant improvement in flow and recanalization following initial presentation of thrombosis. Stable interstitial circulation without significant stenosis. 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 There is decreasing restricted diffusion and increasing loss of volume characteristic of a subacute to chronic infarct. No evidence of acute infarct, acute hemorrhage mass or edema. Ernesto Kulkarni MD Chest X-Ray 03/03/16 0000 Signed Impressions: Service Date/Time: Thursday, March 03, 2016 10:41 - CONCLUSION: Improving right lower lung infiltrate. Otherwise, the lungs are clear bilaterally. Michael Hamilton MD Head CT 01/16/16 0000 Signed Impressions: Service Date/Time: Saturday, January 16, 2016 10:51 - CONCLUSION: No extensive low density in the brainstem colin more prominent in the right the left extending into the right middle cerebellar peduncle consistent with brainstem infarct nonhemorrhagic acute Wellington West MD Abdomen X-Ray 01/14/16 0000 Signed Impressions: Service Date/Time: Thursday, January 14, 2016 10:19 - CONCLUSION: Moderate stool; otherwise, negative. 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 No evidence of carotid stenosis. Glen Zamora MD Head/Brain Mag Res Venography 12/22/15 0000 Signed Impressions: Service Date/Time: Tuesday, December 22, 2015 09:22 - CONCLUSION: Normal MRV. Jonel Jones Jr., MD Physical Exam GENERAL: opens eyes when stimulated, not following any commands, not focusing or tracking. He has a very moist cough. He is not in respiratory distress. SKIN: Warm and dry. No generalized rash HEENT: [place] conjunctiva. . No scleral icterus. No injection or drainage. No nasal discharge. Mucous membranes pink and moist. NECK: Tracheostomy site looks okay. CARDIOVASCULAR: Regular rate and rhythm. No murmur or rub. RESPIRATORY: Decreased breath sounds at the bases. Scattered rhonchi ABDOMEN: Soft, obese, non-tender, nondistended. Bowel sounds present and normoactive. No guarding. No organomegaly. PEG site looks okay. EXTREMITIES: No clubbing, cyanosis, or edema. No joint effusions. NEUROLOGICAL: Opens eyes when stimulated, no interaction. He is not focusing or tracking. PSYCH: Unable to assess ; all in place, urine looks clear LINE: Peripheral IV with no evidence of infection Assessment & Plan Remarks IMPRESSION Recurrent fevers, etiology? - Likely pulmonary - temps better - CXR 03/08 with increased R base infiltrate One (+) BC 03/03 GNR, did not gorw on solid media, no other (+) BC CVA, with significant neurologic sequela Hx NHL RECOMMENDATION Continue Bactrim Also on Flagyl Continue Vancomycin Follow cultures Monitor temps Monitor progress Emma Hughes MD Mar 11, 2016 13:45
[2016-03-11] MEDS: WARFARIN SOD 3 MG TAB PO SCH (15:57)
[2016-03-11] MEDS: PARoxetine HCL 20 MG TAB PEG SCH (17:55)
[2016-03-11] MEDS: INSULIN DETEMIR 100 UNITS/ML VIAL SQ SCH (20:39)
[2016-03-12] VITALS (9 sets, daily range): BP systolic 113–127; BP diastolic 69–80; PULSE 77–97; RESP 18–22; TEMP 96.2–99.4; O2SAT 95–100
[2016-03-12] MEDS: INSULIN ASPART SUPPLEMENTAL SCALE SQ SCH ×4 (00:50→17:24)
[2016-03-12] MEDS: metroNIDAZOLE 500 MG TAB PO SCH ×3 (01:44→16:37)
[2016-03-12] MEDS: FREE WATER TUBE SCH ×6 (04:00→20:00)
[2016-03-12] MEDS: VANCOMYCIN INJ 1,500 MG in SODIUM CHLORID 0.9% 500 ML INJ 500 ML IV SCH ×2 (04:59→17:21)
[2016-03-12] MEDS: METOPROLOL TARTRATE 50 MG TAB PO SCH ×3 (06:11→21:28)
[2016-03-12] MEDS: ACETIC ACID 0.25% SOLN 1000 ML IRR BTL IRRIGATION SCH ×3 (06:11→21:28)
--- NOTE | 2016-03-12 07:55 | HHI.PR ---
Subjective Remarks Patient resting in bed with eyes open, appears to track with eyes. However, he is not following commands at this time. Does not appear in acute distress. Objective Vitals Vital Signs Date Time Temp Pulse Resp B/P Pulse Ox O2 Delivery O2 Flow Rate FiO2 03/12/16 04:00 96.8 97 20 127/80 95 03/11/16 22:14 95.3 83 18 114/76 98 03/11/16 21:10 100 T-piece 4.00 21 03/11/16 21:10 100 T-piece 4.00 21 03/11/16 18:36 96 T-piece 28 03/11/16 16:43 95.3 95 18 124/78 96 03/11/16 08:00 96.2 84 18 113/73 97 I/O 03/11/16 03/11/16 03/11/16 03/12/16 03/12/16 03/12/16 07:00 15:00 23:00 07:00 15:00 23:00 Intake Total 1322 ml Output Total 650 ml 1000 ml 1200 ml Balance 672 ml -1000 ml -1200 ml Intake Oral 0 ml Tube Feeding 522 ml Other 800 ml Output Urine Total 650 ml 1000 ml 1200 ml # Bowel Movements 1 2 Result Diagram: 03/09/16 1416 03/11/16 0749 Imaging Last Impressions Chest X-Ray 03/09/16 0000 Signed Impressions: Service Date/Time: Wednesday, March 09, 2016 07:54 - CONCLUSION: Worsening right basilar patchy infiltrate. Mikie Vargas MD Head Magnetic Resonance Angiography 03/05/16 0000 Signed Impressions: Service Date/Time: Saturday, March 05, 2016 09:26 - CONCLUSION: Persistent high-grade subtotal occlusive stenotic lesions in the distal right vertebral artery and proximal basilar artery with significant improvement in flow and recanalization following initial presentation of thrombosis. Stable interstitial circulation without significant stenosis. 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 There is decreasing restricted diffusion and increasing loss of volume characteristic of a subacute to chronic infarct. No evidence of acute infarct, acute hemorrhage mass or edema. Ernesto Kulkarni MD Head CT 01/16/16 0000 Signed Impressions: Service Date/Time: Saturday, January 16, 2016 10:51 - CONCLUSION: No extensive low density in the brainstem colin more prominent in the right the left extending into the right middle cerebellar peduncle consistent with brainstem infarct nonhemorrhagic acute Wellington West MD Abdomen X-Ray 01/14/16 0000 Signed Impressions: Service Date/Time: Thursday, January 14, 2016 10:19 - CONCLUSION: Moderate stool; otherwise, negative. 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 No evidence of carotid stenosis. Glen Zamora MD Head/Brain Mag Res Venography 12/22/15 0000 Signed Impressions: Service Date/Time: Tuesday, December 22, 2015 09:22 - CONCLUSION: Normal MRV. Jonel Jones Jr., MD Objective Remarks GENERAL: Elderly patient, in no acute distress. SKIN: Warm and dry. No rashes generalized distribution noted. HEAD: Normocephalic. Atraumatic. EYES: No scleral icterus. No injection or drainage. NECK: Supple, trachea midline. No JVD. Tracheostomy in place CARDIOVASCULAR: Regular rate and rhythm without murmurs, gallops, or rubs. RESPIRATORY: Breath sounds equal bilaterally. No accessory muscle use. Clear to auscultation. GASTROINTESTINAL: Abdomen soft, non-tender, nondistended. Normoactive bowel sounds 4. PEG in place. MUSCULOSKELETAL: Extremities without clubbing, cyanosis, or edema. NEUROLOGICAL: Does not spontaneously move extremities, Nonverbal. 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 Significant residual cognitive deficit. -Nonverbal at this time; appears to be in a locked in state. -Continue Keppra and Coumadin- Palliative care following. Monitor Keppra, last level 8/19 was 15.4. INR 1.6 yesterday. - Neurology saw patient for episodes of shaking on 03/08, EEG and Keppra level ordered. Neurology doubt seizures. GI/Nutrition: Previous PEG tube exchanged by GI at bedside. Appreciate dietary recommendations; Nepro tube feedings for sodium content to continue at 55 mL, hour. Respiratory failure: Secondary to CVA. Patient is status post tracheostomy. Continue pulmonary toilet and neb treatments as needed. Pulmonary following. -Intermittent Blood-tinged secretion around the trach. Trach care per pulmonology. Continue to monitor. Chest x-ray with worsening infiltrate. Depression: Discussed with palliative care Dr. Avilez. Continue Paxil. A-fib: continue Lopressor, warfarin with INR/PT monitoring. Echocardiogram completed in November shows preserved EF. INR is 1.6 today. UTI: Urine culture grew Klebsiella. Patient completed ceftriaxone course. Exchange Arevalo catheter ordered 03/18. Coccyx pressure ulcer: Appreciate plastic surgery recommendations. History of Non-Hodgkin lymphoma: s/p brain biopsy on December 13, by Neurosurgery, Dr. Marin, Pathology consistent with acute infarct without evidence of lymphoma -Seen by Oncology, Dr. Whyte, who has signed off for current admission. DM: Hemoglobin A1c is 7.0. Continue Levemir with sliding scale insulin- monitor and adjust the regimen as needed. Blood sugar 139 this morning. Intermittent low grade fever-temp has been stable since 03/09. WBCs within normal limits. Blood cultures on 03/03 grew gram-negative rods in 1 out of 4 bottles, started on oral Bactrim repeat blood cultures 03/06 negative. Urine culture 03/06 negative. Chest x-ray 814 looked improved. Sacral wound was clean. Repeat chest x-ray 03/09 showed worsening infiltrate, ID consulted. Dr. Hughes recommended: Repeat blood culture, Check LFTs, Repeat chest x-ray, Sputum Gram stain and culture, Continue Bactrim for now, Add Flagyl. Blood cultures 03/08 no growth in 2 days. Sputum culture shows MRSA. Patient placed on droplet precautions. DVT prophylaxis: Full anticoagulation with Coumadin. INR therapeutic CBC BMP stable trends. Monitor as needed Patient examined. No changes in management at this time. Care was discussed with patient, family, RN, Dr. Calhoun Problem Qualifiers (1) DM (diabetes mellitus): Qualified Code: E11.9 - Type 2 diabetes mellitus without complications Melly Collins Mar 12, 2016 07:55
[2016-03-12] MEDS: NYSTATIN 100,000 U/GM PWD 15 GM BTL TOPICAL SCH ×2 (09:00→21:00)
[2016-03-12] MEDS: levETIRAcetam 500 MG/5 ML UDC TUBE SCH ×2 (09:07→21:00)
[2016-03-12] MEDS: RANITIDINE HCL SYRUP 150 MG/10 ML UDC PO SCH (09:07)
[2016-03-12] MEDS: SULFAMETHOXAZOLE-TRIMETHOPRIM 800-160 MG/20 ML UDC PO SCH ×2 (09:07→21:00)
[2016-03-12] MEDS: SENNOSIDES SYRUP 8.8 MG/5 ML CUP TUBE SCH (09:08)
[2016-03-12 09:18] LABS: INTERNATIONAL NORMALIZED RATIO 1.9 RATIO; PROTHROMBIN TIME - PATIENT 20.9 SEC (9.8-11.4)
--- NOTE | 2016-03-12 12:06 | HHI.IDPN ---
Subjective Subjective Remarks Notes reviewed Temps better this weekend BC are negative CXR with increase R base infiltrate Sputum with MRSA, final results still not available Patient is a 60-year-old male admitted to the hospital December 20 and was diagnosed to have CVA. He was on the respirator for a while and underwent placement of a tracheostomy. He was eventually weaned off the vent and has been doing well on T piece. Patient has been treated for different infections including Klebsiella pneumonia, sputum from December 27, Klebsiella UTI urine culture from January 31. He also had 1 positive blood culture on admission with staph simulans which is felt to be a contaminant. Patient initially seen by infectious disease on the latter part of December for fevers, and no other etiology was found and it was felt that it could possibly be central fevers. Patient temperatures have been within normal limits up until about 5 days ago when he started having fevers again. Antibiotics Bactrim Vancomycin Flagyl Lines Peripheral IV Past Medical History Hypertension. Stage III non-Hodgkin's lymphoma. Diabetes mellitus. Paroxysmal atrial fibrillation. Brain biopsy in Nov, 2015. History of left arm surgery. Allergies: Coded Allergies: *MDRO Multi-Drug Resistant Organism (Verified Adverse Reaction, Unknown, ) MRSA (sputum) - 03/08/16 Objective . Vital Signs Date Time Temp Pulse Resp B/P Pulse Ox O2 Delivery O2 Flow Rate FiO2 03/12/16 11:13 98 T-piece 6.00 21 03/12/16 11:13 98 T-piece 6.00 21 03/12/16 08:25 96.2 77 20 125/79 96 03/12/16 07:00 85 03/12/16 07:00 T-Piece 8.00 03/12/16 04:00 96.8 97 20 127/80 95 03/11/16 22:14 95.3 83 18 114/76 98 03/11/16 21:10 100 T-piece 4.00 21 03/11/16 21:10 100 T-piece 4.00 21 03/11/16 18:36 96 T-piece 28 03/11/16 16:43 95.3 95 18 124/78 96 03/11/16 03/11/16 03/12/16 15:00 23:00 07:00 Output Total 1000 ml 1200 ml Balance -1000 ml -1200 ml Output Urine Total 1000 ml 1200 ml # Bowel Movements 2 . Laboratory Tests Test 03/11/16 07:49 Sodium Level 133 MEQ/L Potassium Level 3.6 MEQ/L Chloride Level 97 MEQ/L Carbon Dioxide Level 27.3 MEQ/L Anion Gap 9 MEQ/L Blood Urea Nitrogen 14 MG/DL Creatinine 0.65 MG/DL Estimat Glomerular Filtration 125 ML/MIN Rate Random Glucose 150 MG/DL Calcium Level 8.8 MG/DL Imaging RADIOLOGY STUDIES/FILMS REVIEWED Chest X-Ray 03/09/16 0000 Signed Impressions: Service Date/Time: Wednesday, March 09, 2016 07:54 - CONCLUSION: Worsening right basilar patchy infiltrate. Mikie Vargas MD Head Magnetic Resonance Angiography 03/05/16 0000 Signed Impressions: Service Date/Time: Saturday, March 05, 2016 09:26 - CONCLUSION: Persistent high-grade subtotal occlusive stenotic lesions in the distal right vertebral artery and proximal basilar artery with significant improvement in flow and recanalization following initial presentation of thrombosis. Stable interstitial circulation without significant stenosis. 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 There is decreasing restricted diffusion and increasing loss of volume characteristic of a subacute to chronic infarct. No evidence of acute infarct, acute hemorrhage mass or edema. Ernesto Kulkarni MD Head CT 01/16/16 0000 Signed Impressions: Service Date/Time: Saturday, January 16, 2016 10:51 - CONCLUSION: No extensive low density in the brainstem colin more prominent in the right the left extending into the right middle cerebellar peduncle consistent with brainstem infarct nonhemorrhagic acute Wellington West MD Abdomen X-Ray 01/14/16 0000 Signed Impressions: Service Date/Time: Thursday, January 14, 2016 10:19 - CONCLUSION: Moderate stool; otherwise, negative. 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 No evidence of carotid stenosis. Glen Zamora MD Head/Brain Mag Res Venography 12/22/15 0000 Signed Impressions: Service Date/Time: Tuesday, December 22, 2015 09:22 - CONCLUSION: Normal MRV. Jonel Jones Jr., MD Physical Exam GENERAL: opens eyes when stimulated, not focusing or tracking. NAD. SKIN: Warm and dry. No generalized rash HEENT: [place] conjunctiva. . No scleral icterus. No injection or drainage. Mucous membranes pink and moist. NECK: Tracheostomy site looks okay. CARDIOVASCULAR: Regular rate and rhythm. No murmur or rub. RESPIRATORY: Decreased breath sounds at the bases. Scattered rhonchi ABDOMEN: Soft, obese, non-tender, nondistended. No guarding. No organomegaly. PEG site looks okay. EXTREMITIES: No clubbing, cyanosis, or edema. No joint effusions. NEUROLOGICAL: Opens eyes when stimulated, no interaction. He is not focusing or tracking. PSYCH: Unable to assess ; all in place, urine looks clear LINE: Peripheral IV with no evidence of infection Assessment & Plan Remarks IMPRESSION Recurrent fevers, etiology? - Likely pulmonary - temps better - CXR 03/08 with increased R base infiltrate - sputum with MRSA One (+) BC 03/03 GNR, did not gorw on solid media, no other (+) BC CVA, with significant neurologic sequela Hx NHL RECOMMENDATION Continue Bactrim Also on Flagyl Continue Vancomycin Follow cultures and deescalate Abx Monitor temps Monitor progress Emma Hughes MD Mar 12, 2016 12:06
--- NOTE | 2016-03-12 14:10 | HHI.HCPN ---
Met with ex- Leanne in [facility], she was on her way out of patient's room. She expressed no concerns at this time. Inquired about EEG and clarification on insolation. Answered her questions to the best of my ability, appears satisfied. Denies any further questions or concerns. She states "it is ok for staff to speak with family regarding isolation", further clarifies family may need ongoing reminders due to language barrier at time. Leanne also states starting next week she will be going back to work at [employer] but will still be available as needed--she will provide medical team with contact information when she obtains her work number. Offered emotional support. Palliative care will continue to follow throughout hospitalization. SW will follow as needed for emotional and social support. Shelly Jones Mar 12, 2016 14:10
[2016-03-12] MEDS: WARFARIN SOD 3 MG TAB PO SCH (16:37)
[2016-03-12] MEDS: PARoxetine HCL SUSP 20 MG/10 ML UDC PEG SCH (18:57)
[2016-03-12] MEDS: INSULIN DETEMIR 100 UNITS/ML VIAL SQ SCH (21:00)
[2016-03-13] VITALS (9 sets, daily range): BP systolic 111–134; BP diastolic 70–86; PULSE 80–94; RESP 15–24; TEMP 95.9–99.1; O2SAT 95–100
[2016-03-13] MEDS: INSULIN ASPART SUPPLEMENTAL SCALE SQ SCH ×5 (02:14→23:26)
[2016-03-13] MEDS: metroNIDAZOLE 500 MG TAB PO SCH ×3 (02:14→17:48)
[2016-03-13] MEDS: FREE WATER TUBE SCH ×7 (04:59→23:18)
[2016-03-13] MEDS: VANCOMYCIN INJ 1,500 MG in SODIUM CHLORID 0.9% 500 ML INJ 500 ML IV SCH ×2 (04:59→16:27)
[2016-03-13] MEDS: ACETIC ACID 0.25% SOLN 1000 ML IRR BTL IRRIGATION SCH ×3 (05:14→20:04)
[2016-03-13] MEDS: METOPROLOL TARTRATE 50 MG TAB PO SCH ×3 (05:14→23:17)
[2016-03-13 06:25] LABS: INTERNATIONAL NORMALIZED RATIO 2.2 RATIO; PROTHROMBIN TIME - PATIENT 24.5 SEC (9.8-11.4)
--- NOTE | 2016-03-13 07:20 | RADRPT ---
EXAM DATE/TIME: 03/13/2016 06:21 [facility] COMPARISON: CHEST SINGLE AP, March 09, 2016, 7:54. INDICATIONS : Pneumonia. MEDICAL HISTORY : Hypertension. Diabetes mellitus type II. Lymphoma SURGICAL HISTORY : None. ENCOUNTER: Subsequent ACUITY: 2 weeks PAIN SCORE: Non-responsive. LOCATION: Bilateral chest FINDINGS: Tracheostomy remains in place. Left lung is clear. Minimal patchy density remains present unchanged i n the right lung base. CONCLUSION: Stable chest Wellington West MD on March 13, 2016 at 7:17 Board Certified Radiologist. This report was verified electronically.
[2016-03-13] MEDS: RESP: ALBUTEROL 2.5 MG/IPRATROPIUM 0.5 MG NEB (PRN) NEB (08:34)
--- NOTE | 2016-03-13 08:35 | HHI.PR ---
Subjective Remarks Patient resting in bed with eyes open, appears to track but does not follow commands. Family at bedside. Does not appear in acute distress. No concerns from nursing staff at this time. Objective Vitals Vital Signs Date Time Temp Pulse Resp B/P Pulse Ox O2 Delivery O2 Flow Rate FiO2 03/13/16 08:04 95.9 81 16 134/80 96 Manual Cuff/Auscultation 03/13/16 05:01 98 T-piece 6.00 21 03/13/16 04:28 98 T-Piece 21 03/13/16 04:23 99.1 80 22 112/72 96 03/13/16 00:40 98.9 86 20 111/70 96 03/12/16 21:00 85 03/12/16 20:23 99.4 93 22 113/69 99 03/12/16 16:00 97.2 85 18 123/72 96 03/12/16 15:54 98 T-piece 6.00 03/12/16 15:54 98 T-piece 6.00 03/12/16 12:00 96.6 86 18 127/79 100 03/12/16 11:13 98 T-piece 6.00 03/12/16 11:13 98 T-piece 6.00 21 I/O 03/12/16 03/12/16 03/12/16 03/13/16 03/13/16 03/13/16 07:00 15:00 23:00 07:00 15:00 23:00 Intake Total 0 ml Output Total 1200 ml 2300 ml 1600 ml 2200 ml Balance -1200 ml -2300 ml -1600 ml -2200 ml Intake Oral 0 ml Output Urine Total 1200 ml 2300 ml 1600 ml 2200 ml # Bowel Movements 1 2 Result Diagram: 03/09/16 1416 03/13/16 0550 Imaging Last Impressions Chest X-Ray 03/13/16 0000 Signed Impressions: Service Date/Time: Sunday, March 13, 2016 06:21 - CONCLUSION: Stable chest Wellington West MD Head Magnetic Resonance Angiography 03/05/16 0000 Signed Impressions: Service Date/Time: Saturday, March 05, 2016 09:26 - CONCLUSION: Persistent high-grade subtotal occlusive stenotic lesions in the distal right vertebral artery and proximal basilar artery with significant improvement in flow and recanalization following initial presentation of thrombosis. Stable interstitial circulation without significant stenosis. 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 There is decreasing restricted diffusion and increasing loss of volume characteristic of a subacute to chronic infarct. No evidence of acute infarct, acute hemorrhage mass or edema. Ernesto Kulkarni MD Head CT 01/16/16 0000 Signed Impressions: Service Date/Time: Saturday, January 16, 2016 10:51 - CONCLUSION: No extensive low density in the brainstem colin more prominent in the right the left extending into the right middle cerebellar peduncle consistent with brainstem infarct nonhemorrhagic acute Wellington West MD Abdomen X-Ray 01/14/16 0000 Signed Impressions: Service Date/Time: Thursday, January 14, 2016 10:19 - CONCLUSION: Moderate stool; otherwise, negative. 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 No evidence of carotid stenosis. Glen Zamora MD Head/Brain Mag Res Venography 12/22/15 0000 Signed Impressions: Service Date/Time: Tuesday, December 22, 2015 09:22 - CONCLUSION: Normal MRV. Jonel Jones Jr., MD Objective Remarks GENERAL: Elderly patient, in no acute distress. SKIN: Warm and dry. No rashes generalized distribution noted. HEAD: Normocephalic. Atraumatic. EYES: No scleral icterus. No injection or drainage. NECK: Supple, trachea midline. No JVD. Tracheostomy in place CARDIOVASCULAR: Regular rate and rhythm without murmurs, gallops, or rubs. RESPIRATORY: Breath sounds equal bilaterally. No accessory muscle use. Some rhonchi noted throughout. GASTROINTESTINAL: Abdomen soft, non-tender, nondistended. Normoactive bowel sounds 4. PEG in place. MUSCULOSKELETAL: Extremities without clubbing, cyanosis, or edema. NEUROLOGICAL: Does not spontaneously move extremities, Nonverbal. 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 Significant residual cognitive deficit. -Nonverbal at this time; appears to be in a locked in state. -Continue Keppra and Coumadin- Palliative care following. Monitor Keppra, last level 03/08 was 15.4. INR 1.6 yesterday. - Neurology saw patient for episodes of shaking on 03/08, EEG and Keppra level ordered. Neurology doubt seizures. GI/Nutrition: Previous PEG tube exchanged by GI at bedside. Appreciate dietary recommendations; Nepro tube feedings for sodium content to continue at 55 mL, hour. Respiratory failure: Secondary to CVA. Patient is status post tracheostomy. Continue pulmonary toilet and neb treatments as needed. Pulmonary following. -Intermittent Blood-tinged secretion around the trach. Trach care per pulmonology. Continue to monitor. Chest x-ray with worsening infiltrate. Depression: Continue Paxil. A-fib: continue Lopressor, warfarin with INR/PT monitoring. Echocardiogram completed in November shows preserved EF. INR is 1.6 today. UTI: Urine culture grew Klebsiella. Patient completed ceftriaxone course. Exchange Arevalo catheter ordered 03/18. Coccyx pressure ulcer: Appreciate plastic surgery recommendations. History of Non-Hodgkin lymphoma: s/p brain biopsy on December 13, by Neurosurgery, Dr. Marin, Pathology consistent with acute infarct without evidence of lymphoma -Seen by Oncology, Dr. Whyte, who has signed off for current admission. DM: Hemoglobin A1c is 7.0. Continue Levemir with sliding scale insulin- monitor and adjust the regimen as needed. Blood sugar 139 this morning. Intermittent low grade fever-temp has been stable since 03/09. WBCs within normal limits. Blood cultures on 03/03 grew gram-negative rods in 1 out of 4 bottles, started on oral Bactrim repeat blood cultures 03/06 negative. Urine culture 03/06 negative. Chest x-ray 814 looked improved. Sacral wound was clean. Repeat chest x-ray 03/09 showed worsening infiltrate, ID consulted. Dr. Hughes recommended: Repeat blood culture, Check LFTs, Repeat chest x-ray, Sputum Gram stain and culture, Continue Bactrim for now, Add Flagyl. Blood cultures 03/08 no growth in 2 days. Sputum culture shows MRSA. Patient placed on droplet precautions. Very low-grade fever last night at 4:00 vitals, resolved spontaneously. DVT prophylaxis: Full anticoagulation with Coumadin. INR therapeutic CBC BMP stable trends. Monitor as needed Patient examined. No changes in management at this time. Care was discussed with patient, family, RN, Dr. Calhoun Problem Qualifiers (1) DM (diabetes mellitus): Qualified Code: E11.9 - Type 2 diabetes mellitus without complications Melly Collins Mar 13, 2016 08:35
[2016-03-13] MEDS: SULFAMETHOXAZOLE-TRIMETHOPRIM 800-160 MG/20 ML UDC PO SCH ×2 (08:41→20:04)
[2016-03-13] MEDS: SENNOSIDES SYRUP 8.8 MG/5 ML CUP TUBE SCH (08:41)
[2016-03-13] MEDS: RANITIDINE HCL SYRUP 150 MG/10 ML UDC PO SCH (08:41)
[2016-03-13] MEDS: levETIRAcetam 500 MG/5 ML UDC TUBE SCH ×2 (08:41→20:04)
[2016-03-13] MEDS: NYSTATIN 100,000 U/GM PWD 15 GM BTL TOPICAL SCH ×2 (08:59→20:04)
--- NOTE | 2016-03-13 13:57 | HHI.IDPN ---
Subjective Subjective Remarks Notes reviewed Temps staying normal BC are negative CXR with increase R base infiltrate Sputum with MRSA Patient is a 60-year-old male admitted to the hospital December 20 and was diagnosed to have CVA. He was on the respirator for a while and underwent placement of a tracheostomy. He was eventually weaned off the vent and has been doing well on T piece. Patient has been treated for different infections including Klebsiella pneumonia, sputum from December 27, Klebsiella UTI urine culture from January 31. He also had 1 positive blood culture on admission with staph simulans which is felt to be a contaminant. Patient initially seen by infectious disease on the latter part of December for fevers, and no other etiology was found and it was felt that it could possibly be central fevers. Patient temperatures have been within normal limits up until about 5 days ago when he started having fevers again. Antibiotics Bactrim Vancomycin Flagyl Lines Peripheral IV Past Medical History Hypertension. Stage III non-Hodgkin's lymphoma. Diabetes mellitus. Paroxysmal atrial fibrillation. Brain biopsy in Nov, 2015. History of left arm surgery. Allergies: Coded Allergies: *MDRO Multi-Drug Resistant Organism (Verified Adverse Reaction, Unknown, ) MRSA (sputum) - 03/08/16 Objective . Vital Signs Date Time Temp Pulse Resp B/P Pulse Ox O2 Delivery O2 Flow Rate FiO2 03/13/16 12:22 97.1 94 15 132/86 95 03/13/16 08:37 99 T-piece 03/13/16 08:30 96 T-Piece 03/13/16 08:04 95.9 81 16 134/80 96 Manual Cuff/Auscultation 03/13/16 05:01 98 T-piece 6.00 03/13/16 04:28 98 T-Piece 21 03/13/16 04:23 99.1 80 22 112/72 96 03/13/16 00:40 98.9 86 20 111/70 96 03/12/16 21:00 85 03/12/16 20:23 99.4 93 22 113/69 99 03/12/16 16:00 97.2 85 18 123/72 96 03/12/16 15:54 98 T-piece 6.00 21 03/12/16 15:54 98 T-piece 6.00 21 03/12/16 03/12/16 03/13/16 15:00 23:00 07:00 Intake Total 0 ml Output Total 2300 ml 1600 ml 2200 ml Balance -2300 ml -1600 ml -2200 ml Intake Oral 0 ml Output Urine Total 2300 ml 1600 ml 2200 ml # Bowel Movements 1 2 . Laboratory Tests Test 03/13/16 05:50 Creatinine 0.60 MG/DL Estimat Glomerular Filtration 137 ML/MIN Rate Imaging RADIOLOGY STUDIES/FILMS REVIEWED Chest X-Ray 03/09/16 0000 Signed Impressions: Service Date/Time: Wednesday, March 09, 2016 07:54 - CONCLUSION: Worsening right basilar patchy infiltrate. Mikie Vargas MD Head Magnetic Resonance Angiography 03/05/16 0000 Signed Impressions: Service Date/Time: Saturday, March 05, 2016 09:26 - CONCLUSION: Persistent high-grade subtotal occlusive stenotic lesions in the distal right vertebral artery and proximal basilar artery with significant improvement in flow and recanalization following initial presentation of thrombosis. Stable interstitial circulation without significant stenosis. 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 There is decreasing restricted diffusion and increasing loss of volume characteristic of a subacute to chronic infarct. No evidence of acute infarct, acute hemorrhage mass or edema. Ernesto Kulkarni MD Head CT 01/16/16 0000 Signed Impressions: Service Date/Time: Saturday, January 16, 2016 10:51 - CONCLUSION: No extensive low density in the brainstem colin more prominent in the right the left extending into the right middle cerebellar peduncle consistent with brainstem infarct nonhemorrhagic acute Wellington West MD Abdomen X-Ray 01/14/16 0000 Signed Impressions: Service Date/Time: Thursday, January 14, 2016 10:19 - CONCLUSION: Moderate stool; otherwise, negative. 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 No evidence of carotid stenosis. Glen Zamora MD Head/Brain Mag Res Venography 12/22/15 0000 Signed Impressions: Service Date/Time: Tuesday, December 22, 2015 09:22 - CONCLUSION: Normal MRV. Jonel Jones Jr., MD Physical Exam GENERAL: opens eyes when stimulated, not focusing or tracking. NAD. SKIN: Warm and dry. No generalized rash HEENT: [place] conjunctiva. . No scleral icterus. No injection or drainage. Mucous membranes pink and moist. NECK: Tracheostomy site looks okay. CARDIOVASCULAR: Regular rate and rhythm. No murmur or rub. RESPIRATORY: Decreased breath sounds at the bases. Scattered rhonchi ABDOMEN: Soft, obese, non-tender, nondistended. No guarding. No organomegaly. PEG site looks okay. EXTREMITIES: No clubbing, cyanosis, or edema. No joint effusions. NEUROLOGICAL: Opens eyes when stimulated, no interaction. He is not focusing or tracking. PSYCH: Unable to assess ; all in place, urine looks clear LINE: Peripheral IV with no evidence of infection Assessment & Plan Remarks IMPRESSION Recurrent fevers, etiology? - Likely pulmonary - temps better - CXR 03/08 with increased R base infiltrate - sputum with MRSA One (+) BC 03/03 GNR, did not gorw on solid media, no other (+) BC CVA, with significant neurologic sequela Hx NHL RECOMMENDATION Continue Bactrim - to finish tomorrow Also on Flagyl - give till 03/14 Continue Vancomycin - give 7 days for PNA Monitor temps Monitor progress Emma Hughes MD Mar 13, 2016 13:57
[2016-03-13] MEDS: WARFARIN SOD 3 MG TAB PO SCH (16:27)
[2016-03-13] MEDS: INSULIN DETEMIR 100 UNITS/ML VIAL SQ SCH (20:04)
[2016-03-13] MEDS: PARoxetine HCL SUSP 20 MG/10 ML UDC PEG SCH (20:04)
[2016-03-14] VITALS (11 sets, daily range): BP systolic 129–139; BP diastolic 76–85; PULSE 82–93; RESP 16–24; TEMP 95.6–98.7; O2SAT 97–99
[2016-03-14] MEDS: metroNIDAZOLE 500 MG TAB PO SCH ×3 (01:00→15:51)
[2016-03-14] MEDS: FREE WATER TUBE SCH ×6 (03:55→22:54)
[2016-03-14] MEDS: VANCOMYCIN INJ 1,500 MG in SODIUM CHLORID 0.9% 500 ML INJ 500 ML IV SCH ×2 (03:55→15:51)
[2016-03-14] MEDS: METOPROLOL TARTRATE 50 MG TAB PO SCH ×3 (05:55→22:48)
[2016-03-14] MEDS: ACETIC ACID 0.25% SOLN 1000 ML IRR BTL IRRIGATION SCH ×3 (05:56→20:35)
[2016-03-14] MEDS: INSULIN ASPART SUPPLEMENTAL SCALE SQ SCH ×4 (06:00→22:53)
[2016-03-14] MEDS: RANITIDINE HCL SYRUP 150 MG/10 ML UDC PO SCH (08:01)
[2016-03-14] MEDS: levETIRAcetam 500 MG/5 ML UDC TUBE SCH ×2 (08:01→20:34)
[2016-03-14] MEDS: SENNOSIDES SYRUP 8.8 MG/5 ML CUP TUBE SCH (08:01)
[2016-03-14] MEDS: SULFAMETHOXAZOLE-TRIMETHOPRIM 800-160 MG/20 ML UDC PO SCH (08:01)
[2016-03-14] MEDS: NYSTATIN 100,000 U/GM PWD 15 GM BTL TOPICAL SCH ×2 (08:02→20:35)
[2016-03-14 08:05] LABS: INTERNATIONAL NORMALIZED RATIO 2.7 RATIO; PROTHROMBIN TIME - PATIENT 30.4 SEC (9.8-11.4)
--- NOTE | 2016-03-14 09:06 | HHI.PR ---
Subjective Remarks Follow-up CVA, encephalopathy 03/14/16-patient seen and examined, nonverbal and does not follow command. No acute event overnight. Currently afebrile. No family member at the bedside. Objective Vitals Vital Signs Date Time Temp Pulse Resp B/P Pulse Ox O2 Delivery O2 Flow Rate FiO2 03/14/16 08:04 98.0 82 16 131/76 97 03/14/16 04:00 97.3 88 24 129/79 98 03/14/16 00:45 99 T-piece 21 03/14/16 00:45 99 T-piece 5.00 21 03/14/16 00:00 98.5 85 24 139/85 97 03/13/16 20:00 98.2 89 24 125/71 98 03/13/16 15:57 98.0 80 16 126/76 100 03/13/16 12:22 97.1 94 15 132/86 95 I/O 03/13/16 03/13/16 03/13/16 03/14/16 03/14/16 03/14/16 07:00 15:00 23:00 07:00 15:00 23:00 Intake Total 0 ml Output Total 2200 ml 1200 ml 600 ml 1000 ml Balance -2200 ml -1200 ml -600 ml -1000 ml Intake Oral 0 ml Output Urine Total 2200 ml 1200 ml 600 ml 1000 ml # Bowel Movements 2 2 0 3 Result Diagram: 03/13/16 0550 Imaging Last Impressions Chest X-Ray 03/13/16 0000 Signed Impressions: Service Date/Time: Sunday, March 13, 2016 06:21 - CONCLUSION: Stable chest Wellington West MD Head Magnetic Resonance Angiography 03/05/16 0000 Signed Impressions: Service Date/Time: Saturday, March 05, 2016 09:26 - CONCLUSION: Persistent high-grade subtotal occlusive stenotic lesions in the distal right vertebral artery and proximal basilar artery with significant improvement in flow and recanalization following initial presentation of thrombosis. Stable interstitial circulation without significant stenosis. 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 There is decreasing restricted diffusion and increasing loss of volume characteristic of a subacute to chronic infarct. No evidence of acute infarct, acute hemorrhage mass or edema. Ernesto Kulkarni MD Head CT 01/16/16 0000 Signed Impressions: Service Date/Time: Saturday, January 16, 2016 10:51 - CONCLUSION: No extensive low density in the brainstem colin more prominent in the right the left extending into the right middle cerebellar peduncle consistent with brainstem infarct nonhemorrhagic acute Wellington West MD Abdomen X-Ray 01/14/16 0000 Signed Impressions: Service Date/Time: Thursday, January 14, 2016 10:19 - CONCLUSION: Moderate stool; otherwise, negative. 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 No evidence of carotid stenosis. Glen Zamora MD Head/Brain Mag Res Venography 12/22/15 0000 Signed Impressions: Service Date/Time: Tuesday, December 22, 2015 09:22 - CONCLUSION: Normal MRV. Jonel Jones Jr., MD Objective Remarks GENERAL: Nonverbal and in no acute distress. Trach in place SKIN: Warm and dry. HEAD: Normocephalic. EYES: No scleral icterus. No injection or drainage. NECK: Supple, trachea midline. No JVD or lymphadenopathy. CARDIOVASCULAR: Regular rate and rhythm without murmurs, gallops, or rubs. RESPIRATORY: Breath sounds equal bilaterally. No accessory muscle use. GASTROINTESTINAL: Abdomen soft, non-tender, nondistended. PEG tube in place MUSCULOSKELETAL: No cyanosis, or edema. BACK: Nontender without obvious deformity. No CVA tenderness. 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 Continue Keppra and Coumadin- neurology was reconsulted.Palliative care following. Monitor Keppra level (2) intermittent fever-resolved, continue to monitor (3) Acute respiratory failure: Resolved; Secondary to CVA, Status post tracheostomy. Continue pulmonary toilet and neb treatments as needed.appreciate input from Pulmonary (4) acute renal failure/ hypernatremia/hypokalemia-resolved with IV fluid and water flush via PEG ; continue to monitor renal function and electrolytes renal sonogram with no hydronephrosis. Appreciate input from nephrology (5) A-fib: Currently rate controlled and continue Lopressor, warfarin (on hold) with INR/PT monitoring. Echocardiogram completed in November shows preserved EF (6) Non-Hodgkin lymphoma s/p brain biopsy on December 13, by Neurosurgery, Dr. Marin - Pathology consistent with acute infarct without evidence of lymphoma Seen by Oncology, Dr. Whyte, who has signed off for current admission as no active oncology issues (7) DM (diabetes mellitus): continue Levemir with sliding scale- monitor and adjust the regimen as needed. 8-Hypokalemia: Resolved Decubitus ulcer stage III: Wound care nurse input appreciated and treatment per protocol; repositioning Q2-3H; Distribution Dispatcher consult DVT prophylaxis with Coumadin. Problem Qualifiers (1) DM (diabetes mellitus): Qualified Code: E11.9 - Type 2 diabetes mellitus without complications Mikie Bundy MD Mar 14, 2016 09:06
--- NOTE | 2016-03-14 10:49 | HHI.IDPN ---
Subjective Subjective Remarks Notes reviewed Temps staying normal Clinically stable BC are negative CXR 03/13 with increased R base infiltrate Sputum with MRSA Patient is a 60-year-old male admitted to the hospital December 20 and was diagnosed to have CVA. He was on the respirator for a while and underwent placement of a tracheostomy. He was eventually weaned off the vent and has been doing well on T piece. Patient has been treated for different infections including Klebsiella pneumonia, sputum from December 27, Klebsiella UTI urine culture from January 31. He also had 1 positive blood culture on admission with staph simulans which is felt to be a contaminant. Patient initially seen by infectious disease on the latter part of December for fevers, and no other etiology was found and it was felt that it could possibly be central fevers. Patient temperatures have been within normal limits up until about 5 days ago when he started having fevers again. Antibiotics Bactrim - to finish today Vancomycin Flagyl - to finish today Lines Peripheral IV Past Medical History Hypertension. Stage III non-Hodgkin's lymphoma. Diabetes mellitus. Paroxysmal atrial fibrillation. Brain biopsy in Nov, 2015. History of left arm surgery. Allergies: Coded Allergies: *MDRO Multi-Drug Resistant Organism (Verified Adverse Reaction, Unknown, ) MRSA (sputum) - 03/08/16 Objective . Vital Signs Date Time Temp Pulse Resp B/P Pulse Ox O2 Delivery O2 Flow Rate FiO2 03/14/16 10:05 99 T-piece 21 03/14/16 08:04 98.0 82 16 131/76 97 03/14/16 04:00 97.3 88 24 129/79 98 03/14/16 00:45 99 T-piece 03/14/16 00:45 99 T-piece 5.00 21 03/14/16 00:00 98.5 85 24 139/85 97 03/13/16 20:00 98.2 89 24 125/71 98 03/13/16 15:57 98.0 80 16 126/76 100 03/13/16 12:22 97.1 94 15 132/86 95 03/13/16 03/13/16 03/14/16 14:59 22:59 06:59 Output Total 1200 ml 600 ml 1000 ml Balance -1200 ml -600 ml -1000 ml Output Urine Total 1200 ml 600 ml 1000 ml # Bowel Movements 2 0 3 . Laboratory Tests Test 03/13/16 05:50 Creatinine 0.60 MG/DL Estimat Glomerular Filtration 137 ML/MIN Rate Imaging RADIOLOGY STUDIES/FILMS REVIEWED Chest X-Ray 03/09/16 0000 Signed Impressions: Service Date/Time: Wednesday, March 09, 2016 07:54 - CONCLUSION: Worsening right basilar patchy infiltrate. Mikie Vargas MD Head Magnetic Resonance Angiography 03/05/16 0000 Signed Impressions: Service Date/Time: Saturday, March 05, 2016 09:26 - CONCLUSION: Persistent high-grade subtotal occlusive stenotic lesions in the distal right vertebral artery and proximal basilar artery with significant improvement in flow and recanalization following initial presentation of thrombosis. Stable interstitial circulation without significant stenosis. 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 There is decreasing restricted diffusion and increasing loss of volume characteristic of a subacute to chronic infarct. No evidence of acute infarct, acute hemorrhage mass or edema. Ernesto Kulkarni MD Head CT 01/16/16 0000 Signed Impressions: Service Date/Time: Saturday, January 16, 2016 10:51 - CONCLUSION: No extensive low density in the brainstem colin more prominent in the right the left extending into the right middle cerebellar peduncle consistent with brainstem infarct nonhemorrhagic acute Wellington West MD Abdomen X-Ray 01/14/16 0000 Signed Impressions: Service Date/Time: Thursday, January 14, 2016 10:19 - CONCLUSION: Moderate stool; otherwise, negative. 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 No evidence of carotid stenosis. Glen Zamora MD Head/Brain Mag Res Venography 12/22/15 0000 Signed Impressions: Service Date/Time: Tuesday, December 22, 2015 09:22 - CONCLUSION: Normal MRV. Jonel Jones Jr., MD Physical Exam GENERAL: opens eyes when stimulated, not focusing or tracking. NAD. SKIN: Warm and dry. No generalized rash HEENT: [place] conjunctiva. . No scleral icterus. No injection or drainage. Mucous membranes pink and moist. NECK: Tracheostomy site looks okay. CARDIOVASCULAR: Regular rate and rhythm. No murmur or rub. RESPIRATORY: Decreased breath sounds at the bases. Scattered rhonchi ABDOMEN: Soft, obese, non-tender, nondistended. No guarding. No organomegaly. PEG site looks okay. EXTREMITIES: No clubbing, cyanosis, or edema. No joint effusions. NEUROLOGICAL: Opens eyes when stimulated, no interaction. He is not focusing or tracking. PSYCH: Unable to assess ; all in place, urine looks clear LINE: Peripheral IV with no evidence of infection Assessment & Plan Remarks IMPRESSION Recurrent fevers, etiology? better - Likely pulmonary - temps better - CXR 03/08 with increased R base infiltrate - sputum with MRSA One (+) BC 03/03 GNR, did not grow on solid media, no other (+) BC CVA, with significant neurologic sequela Hx NHL RECOMMENDATION Continue Bactrim - to finish today Also on Flagyl - to finish today Continue Vancomycin - give 7 days for PNA - give until Mar 17 - pharm doing Vanco dosing Monitor temps Monitor progress Seems clinically stable Emma Hughes MD Mar 14, 2016 10:49
[2016-03-14] MEDS: PARoxetine HCL SUSP 20 MG/10 ML UDC PEG SCH (17:44)
[2016-03-14] MEDS: INSULIN DETEMIR 100 UNITS/ML VIAL SQ SCH (20:35)
[2016-03-15] MEDS: FREE WATER TUBE SCH ×6 (03:07→23:24)
[2016-03-15] MEDS: VANCOMYCIN INJ 1,500 MG in SODIUM CHLORID 0.9% 500 ML INJ 500 ML IV SCH ×2 (03:07→16:43)
[2016-03-15 05:13] VITALS: BP 123/75; PULSE 93; RESP 20; TEMP 97.3; O2SAT 97
[2016-03-15] MEDS: INSULIN ASPART SUPPLEMENTAL SCALE SQ SCH ×4 (05:46→23:24)
[2016-03-15] MEDS: METOPROLOL TARTRATE 50 MG TAB PO SCH ×3 (05:47→23:24)
[2016-03-15] MEDS: ACETIC ACID 0.25% SOLN 1000 ML IRR BTL IRRIGATION SCH ×3 (05:47→20:43)
[2016-03-15 08:00] VITALS: BP 128/76; PULSE 76; RESP 18; TEMP 97.3; O2SAT 98
--- NOTE | 2016-03-15 08:31 | HHI.PR ---
Subjective Remarks Follow up CVA. Patient is non-verbal. Afebrile overnight. Objective Vitals Vital Signs Date Time Temp Pulse Resp B/P Pulse Ox O2 Delivery O2 Flow Rate FiO2 03/15/16 05:13 97.3 93 20 123/75 97 03/15/16 00:25 Room Air 03/14/16 23:43 98.7 93 18 129/77 97 03/14/16 22:28 21 03/14/16 22:28 98 T-piece 21 03/14/16 20:00 95.6 82 18 138/79 97 03/14/16 18:15 96 T-Piece 21 03/14/16 18:10 84 03/14/16 18:09 97.6 83 16 130/78 98 03/14/16 13:07 96.9 85 24 132/85 97 03/14/16 10:05 99 T-piece 21 I/O 03/14/16 03/14/16 03/14/16 03/15/16 03/15/16 03/15/16 07:00 15:00 23:00 07:00 15:00 23:00 Intake Total 400 ml 800 ml Output Total 1000 ml 2400 ml 800 ml Balance -1000 ml -2000 ml 0 ml Other 400 ml 800 ml Output Urine Total 1000 ml 2400 ml 800 ml # Bowel Movements 3 1 1 Result Diagram: 03/13/16 0550 Imaging Last Impressions Chest X-Ray 03/13/16 0000 Signed Impressions: Service Date/Time: Sunday, March 13, 2016 06:21 - CONCLUSION: Stable chest Wellington West MD Head Magnetic Resonance Angiography 03/05/16 0000 Signed Impressions: Service Date/Time: Saturday, March 05, 2016 09:26 - CONCLUSION: Persistent high-grade subtotal occlusive stenotic lesions in the distal right vertebral artery and proximal basilar artery with significant improvement in flow and recanalization following initial presentation of thrombosis. Stable interstitial circulation without significant stenosis. 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 There is decreasing restricted diffusion and increasing loss of volume characteristic of a subacute to chronic infarct. No evidence of acute infarct, acute hemorrhage mass or edema. Ernesto Kulkarni MD Head CT 01/16/16 0000 Signed Impressions: Service Date/Time: Saturday, January 16, 2016 10:51 - CONCLUSION: No extensive low density in the brainstem colin more prominent in the right the left extending into the right middle cerebellar peduncle consistent with brainstem infarct nonhemorrhagic acute Wellington West MD Abdomen X-Ray 01/14/16 0000 Signed Impressions: Service Date/Time: Thursday, January 14, 2016 10:19 - CONCLUSION: Moderate stool; otherwise, negative. 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 No evidence of carotid stenosis. Glen Zamora MD Head/Brain Mag Res Venography 12/22/15 0000 Signed Impressions: Service Date/Time: Tuesday, December 22, 2015 09:22 - CONCLUSION: Normal MRV. Jonel Jones Jr., MD Objective Remarks GENERAL: Chronically ill appearing patient in no apparent distress. SKIN: Warm and dry. EYES: Pupils equal and round. No scleral icterus. No injection or drainage. NECK: Tracheostomy present. CARDIOVASCULAR: Heart sounds muffled. Normal rate and regular rhythm. RESPIRATORY: Coarse sounds likely from trach. ABDOMINAL: Normoactive bowel sounds. MUSCULOSKELETAL: SCDs in place. No lower extremity edema noted. NEUROLOGICAL: Awake and alert. Non-verbal. 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 Continue Keppra and Coumadin- neurology was reconsulted. Palliative care following. Monitor Keppra level. Continue ST, OT, and PT. NPO per ST. (2) intermittent fever -resolved, continue to monitor. Blood cultures on 03/03 grew gram-negative rods in 1 out of 4 bottles, repeat blood cultures 03/06 negative. Sputum culture 03/08 with MRSA. Patient placed on droplet precautions. Infectious disease evaluated the patient yesterday. Bactrim and Flagyl to be finished yesterday (03/14). Continue vancomycin until 03/17/16. (3) UTI: Resolved. Urine culture with Klebsiella on 01/31 and repeat on 03/06 negative. Arevalo to be changed on 03/18 per previous note. (4) Acute respiratory failure: Resolved; Secondary to CVA, Status post tracheostomy. Continue pulmonary toilet and neb treatments as needed. Appreciate input from Pulmonary. Chest x-ray 03/13 normal. (5) acute renal failure/ hypernatremia/hypokalemia-resolved with IV fluid and water flush via PEG ; continue to monitor renal function and electrolytes. Renal US with no hydronephrosis. Appreciate input from nephrology (6) A-fib: Currently rate controlled and continue Lopressor. Echocardiogram completed in November shows preserved EF. Warfarin was held on 03/10. INR yesterday 2.7. Recheck INR today and resume warfarin. (7) Non-Hodgkin lymphoma s/p brain biopsy on December 13, by Neurosurgery, Dr. Marin - Pathology consistent with acute infarct without evidence of lymphoma Seen by Oncology, Dr. Whyte, who has signed off for current admission as no active oncology issues (8) DM (diabetes mellitus): continue Levemir with sliding scale- monitor and adjust the regimen as needed. (9) Hypokalemia: Resolved (10) Decubitus ulcer stage III: Wound care nurse input appreciated and treatment per protocol; repositioning Q2-3H; Shredder Picker consult (11) DVT prophylaxis with Coumadin. Problem Qualifiers (1) DM (diabetes mellitus): Qualified Code: E11.9 - Type 2 diabetes mellitus without complications Macarena Pino Mar 15, 2016 08:31
[2016-03-15 08:37] LABS: INTERNATIONAL NORMALIZED RATIO 2.4 RATIO; PROTHROMBIN TIME - PATIENT 26.7 SEC (9.8-11.4)
[2016-03-15] MEDS: levETIRAcetam 500 MG/5 ML UDC TUBE SCH ×2 (09:47→20:43)
[2016-03-15] MEDS: SENNOSIDES SYRUP 8.8 MG/5 ML CUP TUBE SCH (09:47)
[2016-03-15] MEDS: RANITIDINE HCL SYRUP 150 MG/10 ML UDC PO SCH (09:47)
[2016-03-15] MEDS: NYSTATIN 100,000 U/GM PWD 15 GM BTL TOPICAL SCH ×2 (09:48→20:43)
[2016-03-15 12:00] VITALS: BP 118/79; PULSE 86; RESP 20; TEMP 97.7; O2SAT 97
[2016-03-15 16:00] VITALS: BP 125/78; PULSE 94; RESP 20; TEMP 97.8; O2SAT 99
[2016-03-15] MEDS: WARFARIN SOD 3 MG TAB PO SCH (16:43)
[2016-03-15] MEDS: PARoxetine HCL SUSP 20 MG/10 ML UDC PEG SCH (17:39)
[2016-03-15] MEDS: INSULIN DETEMIR 100 UNITS/ML VIAL SQ SCH (20:43)
[2016-03-15 20:49] VITALS: BP 122/78; PULSE 96; RESP 19; TEMP 96.5; O2SAT 96
[2016-03-16] VITALS (8 sets, daily range): BP systolic 125–143; BP diastolic 79–95; PULSE 85–112; RESP 18–20; TEMP 96.2–97.5; O2SAT 97–100
[2016-03-16] MEDS: VANCOMYCIN INJ 1,500 MG in SODIUM CHLORID 0.9% 500 ML INJ 500 ML IV SCH ×2 (03:14→16:39)
[2016-03-16] MEDS: FREE WATER TUBE SCH ×6 (03:14→23:32)
[2016-03-16] MEDS: INSULIN ASPART SUPPLEMENTAL SCALE SQ SCH ×4 (05:43→23:31)
[2016-03-16] MEDS: ACETIC ACID 0.25% SOLN 1000 ML IRR BTL IRRIGATION SCH ×3 (05:44→20:25)
[2016-03-16] MEDS: METOPROLOL TARTRATE 50 MG TAB PO SCH ×3 (05:44→20:24)
[2016-03-16 08:25] LABS: INTERNATIONAL NORMALIZED RATIO 2.2 RATIO; PROTHROMBIN TIME - PATIENT 23.8 SEC (9.8-11.4)
[2016-03-16] MEDS: SENNOSIDES SYRUP 8.8 MG/5 ML CUP TUBE SCH (08:45)
[2016-03-16] MEDS: RANITIDINE HCL SYRUP 150 MG/10 ML UDC PO SCH (08:45)
[2016-03-16] MEDS: levETIRAcetam 500 MG/5 ML UDC TUBE SCH ×2 (08:45→20:23)
[2016-03-16] MEDS: NYSTATIN 100,000 U/GM PWD 15 GM BTL TOPICAL SCH ×2 (08:57→20:25)
--- NOTE | 2016-03-16 09:45 | HHI.PR ---
Subjective Remarks Follow-up CVA, encephalopathy 03/14/16-patient seen and examined, nonverbal and does not follow command. No acute event overnight. Currently afebrile. No family member at the bedside. 03/16/2060-patient seen and examined; stable and nonverbal, does not follow command. Currently afebrile on vancomycin Til 03/17/16 Objective Vitals Vital Signs Date Time Temp Pulse Resp B/P Pulse Ox O2 Delivery O2 Flow Rate FiO2 03/16/16 08:14 96.7 106 20 139/79 97 03/16/16 00:43 96.8 91 18 131/82 98 03/15/16 20:49 96.5 96 19 122/78 96 03/15/16 16:00 97.8 94 20 125/78 99 03/15/16 12:00 97.7 86 20 118/79 97 I/O 03/15/16 03/15/16 03/15/16 03/16/16 03/16/16 03/16/16 06:59 14:59 22:59 06:59 14:59 22:59 Intake Total 800 ml Output Total 800 ml 1800 ml 1000 ml 1300 ml Balance 0 ml -1800 ml -1000 ml -1300 ml Other 800 ml Output Urine Total 800 ml 1800 ml 1000 ml 1300 ml # Bowel Movements 1 2 1 Result Diagram: 03/15/16 0754 Objective Remarks GENERAL: Nonverbal and in no acute distress. Trach in place SKIN: Warm and dry. HEAD: Normocephalic. EYES: No scleral icterus. No injection or drainage. NECK: Supple, trachea midline. No JVD or lymphadenopathy. CARDIOVASCULAR: Regular rate and rhythm without murmurs, gallops, or rubs. RESPIRATORY: Breath sounds equal bilaterally. No accessory muscle use. GASTROINTESTINAL: Abdomen soft, non-tender, nondistended. PEG tube in place MUSCULOSKELETAL: No cyanosis, or edema. BACK: Nontender without obvious deformity. No CVA tenderness. 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 Continue Keppra and Coumadin- neurology was reconsulted.Palliative care following. Monitor Keppra level (2) intermittent fever-resolved, continue to monitor. On vancomycin until 03/17 (3) Acute respiratory failure: Resolved; Secondary to CVA, Status post tracheostomy. Continue pulmonary toilet and neb treatments as needed.appreciate input from Pulmonary (4) acute renal failure/ hypernatremia/hypokalemia-resolved with IV fluid and water flush via PEG ; continue to monitor renal function and electrolytes renal sonogram with no hydronephrosis. Appreciate input from nephrology (5) A-fib: Currently rate controlled and continue Lopressor, warfarin with INR/ PT monitoring. Echocardiogram completed in November shows preserved EF (6) Non-Hodgkin lymphoma s/p brain biopsy on December 13, by Neurosurgery, Dr. Marin - Pathology consistent with acute infarct without evidence of lymphoma Seen by Oncology, Dr. Whyte, who has signed off for current admission as no active oncology issues (7) DM (diabetes mellitus): continue Levemir with sliding scale- monitor and adjust the regimen as needed. 8-Hypokalemia: Resolved Decubitus ulcer stage III: Wound care nurse input appreciated and treatment per protocol; repositioning Q2-3H; Application Administrator consult DVT prophylaxis with Coumadin. Problem Qualifiers (1) DM (diabetes mellitus): Qualified Code: E11.9 - Type 2 diabetes mellitus without complications Mikie Bundy MD Mar 16, 2016 09:45
[2016-03-16] MEDS: WARFARIN SOD 3 MG TAB PO SCH (16:38)
[2016-03-16] MEDS: PARoxetine HCL SUSP 20 MG/10 ML UDC PEG SCH (18:55)
[2016-03-16] MEDS: INSULIN DETEMIR 100 UNITS/ML VIAL SQ SCH (20:25)
[2016-03-16] MEDS: SODIUM CHLORIDE 0.9% FLUSH 5 ML FLUSH IVF PRN (20:26)
[2016-03-17] VITALS (10 sets, daily range): BP systolic 121–148; BP diastolic 72–88; PULSE 84–96; RESP 18–20; TEMP 95.7–97.4; O2SAT 95–100
[2016-03-17] MEDS: VANCOMYCIN INJ 1,500 MG in SODIUM CHLORID 0.9% 500 ML INJ 500 ML IV SCH ×2 (03:35→16:26)
[2016-03-17] MEDS: FREE WATER TUBE SCH ×5 (03:42→20:00)
[2016-03-17] MEDS: METOPROLOL TARTRATE 50 MG TAB PO SCH ×3 (04:59→20:00)
[2016-03-17] MEDS: INSULIN ASPART SUPPLEMENTAL SCALE SQ SCH ×3 (05:00→18:00)
[2016-03-17] MEDS: ACETIC ACID 0.25% SOLN 1000 ML IRR BTL IRRIGATION SCH ×3 (05:18→20:03)
[2016-03-17 07:40] LABS: INTERNATIONAL NORMALIZED RATIO 2.3 RATIO; PROTHROMBIN TIME - PATIENT 24.8 SEC (9.8-11.4)
[2016-03-17] MEDS: SENNOSIDES SYRUP 8.8 MG/5 ML CUP TUBE SCH (07:43)
[2016-03-17] MEDS: levETIRAcetam 500 MG/5 ML UDC TUBE SCH ×2 (07:43→20:06)
[2016-03-17] MEDS: NYSTATIN 100,000 U/GM PWD 15 GM BTL TOPICAL SCH ×2 (07:43→20:02)
[2016-03-17] MEDS: RANITIDINE HCL SYRUP 150 MG/10 ML UDC PO SCH (07:43)
--- NOTE | 2016-03-17 11:12 | HHI.PR ---
Subjective Remarks Follow up for pneumonia. Patient seen with family at bedside. Patient nonverbal. No fevers. No acute events overnight. Patient's family requesting repeat sputum culture however discussed with Dr. Hughes, no need for repeat culture as long as patient is not having fevers or other signs of pneumonia. Objective Vitals Vital Signs Date Time Temp Pulse Resp B/P Pulse Ox O2 Delivery O2 Flow Rate FiO2 03/17/16 09:12 99 T-piece 6.00 21 03/17/16 09:12 99 T-piece 6.00 21 03/17/16 08:18 96.4 87 20 126/74 96 03/17/16 07:33 97 Trach Collar 28 T-Piece Humidified 03/17/16 04:00 97.3 96 18 127/77 95 03/17/16 00:00 97.3 87 18 144/86 99 03/16/16 22:15 97 T-piece 03/16/16 22:15 97 T-piece 03/16/16 21:07 97.5 102 19 125/79 100 03/16/16 16:00 96.2 85 20 143/82 100 03/16/16 13:14 97 T-piece 03/16/16 13:14 97 T-piece 03/16/16 12:00 96.9 112 20 134/95 99 I/O 03/16/16 03/16/16 03/16/16 03/17/16 03/17/16 03/17/16 06:59 14:59 22:59 06:59 14:59 22:59 Intake Total 2080 ml Output Total 1300 ml 1700 ml 1300 ml 1400 ml Balance -1300 ml -1700 ml -1300 ml 680 ml Tube Feeding 480 ml Tube Irrigant 1600 ml Output Urine Total 1300 ml 1700 ml 1300 ml 1400 ml # Bowel Movements 1 0 1 1 Result Diagram: 03/17/16 0634 Imaging Last Impressions Chest X-Ray 03/13/16 0000 Signed Impressions: Service Date/Time: Sunday, March 13, 2016 06:21 - CONCLUSION: Stable chest Wellington West MD Head Magnetic Resonance Angiography 03/05/16 0000 Signed Impressions: Service Date/Time: Saturday, March 05, 2016 09:26 - CONCLUSION: Persistent high-grade subtotal occlusive stenotic lesions in the distal right vertebral artery and proximal basilar artery with significant improvement in flow and recanalization following initial presentation of thrombosis. Stable interstitial circulation without significant stenosis. 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 There is decreasing restricted diffusion and increasing loss of volume characteristic of a subacute to chronic infarct. No evidence of acute infarct, acute hemorrhage mass or edema. Ernesto Kulkarni MD Head CT 01/16/16 0000 Signed Impressions: Service Date/Time: Saturday, January 16, 2016 10:51 - CONCLUSION: No extensive low density in the brainstem colin more prominent in the right the left extending into the right middle cerebellar peduncle consistent with brainstem infarct nonhemorrhagic acute Wellington West MD Abdomen X-Ray 01/14/16 0000 Signed Impressions: Service Date/Time: Thursday, January 14, 2016 10:19 - CONCLUSION: Moderate stool; otherwise, negative. 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 No evidence of carotid stenosis. Glen Zamora MD Head/Brain Mag Res Venography 12/22/15 0000 Signed Impressions: Service Date/Time: Tuesday, December 22, 2015 09:22 - CONCLUSION: Normal MRV. Jonel Jones Jr., MD Objective Remarks GENERAL: Well-nourished, well-developed male patient in [facility]. SKIN: Warm and dry. HEAD: Normocephalic. Atraumatic. EYES: Pupils equal and round. No scleral icterus. No injection or drainage. NECK: Supple. Tracheostomy in place. CARDIOVASCULAR: Tachycardic, regular rhythm. S1, S2 noted. No murmur appreciated. RESPIRATORY: No accessory muscle use. Clear to auscultation. Breath sounds equal bilaterally. GASTROINTESTINAL: Abdomen soft, non-tender, nondistended. Normoactive bowel sounds x4. PEG in place. MUSCULOSKELETAL: No obvious deformities. Extremities without clubbing, cyanosis , or edema. 2+ b/l radial and pedal pulses. NEUROLOGICAL: Eyes locked, open. Does not move any extremities. Nonverbal. Procedures 01/02/16 PEG placement 01/02/16 tracheostomy Medications and IVs Current Medications Medications (Trade) Dose Ordered Sig/Junior Route Start Time Stop Time Status Last Admin (NS Flush) 2 ml UNSCH PRN IVF 12/21/15 06:00 03/16/16 20:26 (D50w (Vial) Inj) 25 ml UNSCH PRN IV PUSH 12/21/15 13:00 (Glucagon Inj) 1 mg UNSCH PRN OTHER 12/21/15 13:00 (Keppra Liq) 500 mg Q12HR TUBE 12/27/15 21:00 03/17/16 07:43 (Colace Liq) 100 mg Q12HR TUBE 12/27/15 21:00 Hold 01/15/16 09:01 (Tylenol 650 Mg/ 20 ml Liq) 650 mg Q6H PRN TUBE 12/30/15 15:15 03/08/16 00:10 ([place] 5-325 Mg) 1 tab Q6H PRN PO 12/31/15 15:00 03/07/16 17:05 Insulin Aspart 1 1 Q6HR SQ 01/04/16 12:00 03/17/16 05:00 (Coumadin Consult Pharmacy) 0 ml @ 0 mls/hr UNSCH XX 01/04/16 12:30 (Mycostatin Powder) 1 applic Q12HR TOPICAL 01/08/16 21:00 03/17/16 07:43 (Pill Splitter) 1 ea UNSCH PRN OTHER 01/14/16 08:30 (Zantac Liq) 150 mg Q24H PO 01/18/16 09:00 03/17/16 07:43 (Free Water) 400 ml Q4HR TUBE 01/19/16 12:00 03/17/16 07:44 (Acetic Acid 0.25% Irr Btl) 10 ml Q8HR IRRIGATION 02/05/16 16:00 03/17/16 05:18 (Senna Liq) 8.8 mg DAILY TUBE 02/21/16 09:00 03/17/16 07:43 (Levemir Inj) 30 units HS SQ 03/06/16 21:00 03/16/16 20:25 (Ativan Inj) 0.5 mg Q4H PRN IV PUSH 03/07/16 23:00 Warfarin Sodium 3 mg 3 mg DAILY@16 PO 03/10/16 16:00 03/16/16 16:38 Pharmacy Profile Note 0 ml @ 0 mls/hr UNSCH OTHER 03/10/16 14:15 (Vancomycin Inj/ NS 500 ml Inj) 530 ml @ 265 mls/hr Q12H IV 03/10/16 16:00 03/17/16 23:00 03/17/16 03:35 (Lopressor) 75 mg Q8HR PO 03/10/16 22:00 03/17/16 04:59 (Paxil Liq) 20 mg DAILY@1900 PEG 03/12/16 19:00 03/16/16 18:55 Assessment to: Continue Arevalo insert reason: Prolonged Immobilization Date of Insertion: Mar 07, 2016 A/P Problem List: (1) CVA (cerebral vascular accident) Status: Acute (2) A-fib Status: Chronic (3) DM (diabetes mellitus) Status: Chronic Assessment and Plan 60-year-old male with: CVA (cerebral vascular accident); 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 Significant residual cognitive deficit. Non verbal. Continue Keppra and Coumadin- neurology reconsulted. Palliative care following. Monitor Keppra level. Continue ST, OT, and PT. NPO per ST. Pneumonia with MRSA: patient having fevers 02/27-03/08, Blood cultures on 03/03 grew gram-negative rods in 1 out of 4 bottles, repeat blood cultures 03/06 negative. Sputum culture 03/08 with MRSA. Infectious disease consulted, Bactrim and Flagyl completed 03/14, Vanco completed today 03/17. Do not repeat culture unless fevers return. UTI: Resolved. Urine culture with Klebsiella on 01/31 and repeat on 03/06 negative. Arevalo replaced on 03/07. Acute respiratory failure: Resolved; Secondary to CVA, Status post tracheostomy. Continue pulmonary toilet and neb treatments as needed. Appreciate input from Pulmonary. Chest x-ray 03/13 normal. Acute renal failure/ hypernatremia/hypokalemia-resolved with IV fluid and water flush via PEG; continue to monitor renal function and electrolytes. Renal US with no hydronephrosis. Appreciate input from nephrology. A-fib: Currently rate controlled, continue Lopressor. Echocardiogram completed in November shows preserved EF. Monitor INR daily, continue warfarin. Non-Hodgkin lymphoma: s/p brain biopsy on December 13, by Neurosurgery, Dr. Marin. Pathology consistent with acute infarct without evidence of lymphoma. Seen by Oncology, Dr. Whyte, who has signed off for current admission as no active oncology issues DM (diabetes mellitus): HgbA1c 7.0. Continue Levemir, monitor accuchecks, cover with sliding scale- monitor and adjust the regimen as needed. Hypokalemia: Resolved Decubitus ulcer stage III: Plastic surgery and Wound care nurse input appreciated and treatment per protocol; repositioning Q2-3H; Medical Records Director consult. GI/Nutrition: Nepro tube feedings as recommended by dietitian for sodium content. Continue Nepro at 55 cc/hr per dietitian recommendations. DVT prophylaxis with Coumadin. Discharge Planning Discharge planning per case management, needs placement, SSI pending. Problem Qualifiers (1) DM (diabetes mellitus): Qualified Code: E11.9 - Type 2 diabetes mellitus without complications Ernestine Townsend PA-C Mar 17, 2016 11:12
[2016-03-17] MEDS: WARFARIN SOD 3 MG TAB PO SCH (16:25)
[2016-03-17] MEDS: PARoxetine HCL SUSP 20 MG/10 ML UDC PEG SCH (18:34)
[2016-03-17] MEDS: INSULIN DETEMIR 100 UNITS/ML VIAL SQ SCH (20:00)
[2016-03-18] VITALS (8 sets, daily range): BP systolic 117–145; BP diastolic 76–86; PULSE 83–94; RESP 18–20; TEMP 96–97.1; O2SAT 96–99
[2016-03-18] MEDS: FREE WATER TUBE SCH ×6 (03:16→20:00)
[2016-03-18] MEDS: METOPROLOL TARTRATE 50 MG TAB PO SCH ×3 (05:23→22:19)
[2016-03-18] MEDS: INSULIN ASPART SUPPLEMENTAL SCALE SQ SCH ×4 (05:23→17:34)
[2016-03-18] MEDS: ACETIC ACID 0.25% SOLN 1000 ML IRR BTL IRRIGATION SCH ×3 (05:23→20:44)
[2016-03-18] MEDS: RANITIDINE HCL SYRUP 150 MG/10 ML UDC PO SCH (07:36)
[2016-03-18] MEDS: SENNOSIDES SYRUP 8.8 MG/5 ML CUP TUBE SCH (07:36)
[2016-03-18] MEDS: levETIRAcetam 500 MG/5 ML UDC TUBE SCH ×2 (07:36→20:43)
[2016-03-18] MEDS: NYSTATIN 100,000 U/GM PWD 15 GM BTL TOPICAL SCH ×2 (07:37→20:43)
[2016-03-18 07:45] LABS: INTERNATIONAL NORMALIZED RATIO 2.3 RATIO; PROTHROMBIN TIME - PATIENT 25.4 SEC (9.8-11.4)
[2016-03-18] MEDS: WARFARIN SOD 3 MG TAB PO SCH (15:23)
[2016-03-18] MEDS: PARoxetine HCL SUSP 20 MG/10 ML UDC PEG SCH (17:35)
[2016-03-18] MEDS: INSULIN DETEMIR 100 UNITS/ML VIAL SQ SCH (20:43)
--- NOTE | 2016-03-18 23:14 | HHI.PR ---
Subjective Remarks Patient seen and examined this afternoon around 1 PM. family at bedside.Followup for pneumonia. Family says that he is communicating by blinking his eyes. Objective Vital Signs Date Time Temp Pulse Resp B/P Pulse Ox O2 Delivery O2 Flow Rate FiO2 03/18/16 20:00 96.4 94 19 145/85 99 03/18/16 16:00 96.0 83 20 123/77 96 03/18/16 12:39 97.0 90 20 117/77 97 03/18/16 11:56 21 03/18/16 08:45 96.7 89 20 120/76 98 03/18/16 07:45 99 21 03/18/16 04:00 97.1 94 18 127/79 97 03/18/16 00:00 96.5 90 18 132/86 99 I/O 03/17/16 03/17/16 03/17/16 03/18/16 03/18/16 03/18/16 07:00 15:00 23:00 07:00 15:00 23:00 Intake Total 2080 ml 400 ml 1280 ml Output Total 1400 ml 1150 ml 2300 ml 1001 ml 1875 ml 1000 ml Balance 680 ml -1150 ml -1900 ml 279 ml -1875 ml -1000 ml Intake Oral 0 ml Tube Feeding 480 ml 480 ml Tube Irrigant 1600 ml Other 400 ml 800 ml Output Urine Total 1400 ml 1150 ml 2300 ml 1000 ml 1875 ml 1000 ml Stool Total 1 ml # Bowel Movements 1 0 1 Result Diagram: 03/17/16 0634 Procedures Procedures 01/02/16 PEG placement 01/02/16 tracheostomy Objective Remarks GENERAL: lying in bed. Patient does open and close eyes. Does not appear to be any commands, or respond to verbal stimulation. SKIN: Warm and dry. HEAD: Normocephalic. EYES: No scleral icterus. No injection or drainage. NECK: Supple, trachea midline. No JVD or lymphadenopathy. CARDIOVASCULAR: Regular rate and rhythm without murmurs, gallops, or rubs. RESPIRATORY: Breath sounds equal bilaterally. No accessory muscle use. GASTROINTESTINAL: Abdomen soft, non-tender, nondistended. MUSCULOSKELETAL: No cyanosis, or edema. BACK: Nontender without obvious deformity. No CVA tenderness. 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 Significant residual cognitive deficit. Non verbal. Continue Keppra and Coumadin- neurology reconsulted. Palliative care following. Monitor Keppra level. Continue ST, OT, and PT. NPO per ST. //Pneumonia with MRSA: patient having fevers 02/27-03/08, Blood cultures on 03/03 grew gram-negative rods in 1 out of 4 bottles, repeat blood cultures 03/06 negative. Sputum culture 03/08 with MRSA. Infectious disease consulted, Bactrim and Flagyl completed 03/14, Vanco completed 03/17. Do not repeat culture unless fevers return. - Continue to monitor. //UTI: Resolved. Urine culture with Klebsiella on 01/31 and repeat on 03/06 negative. Arevalo replaced on 03/07. //Acute respiratory failure: Resolved; Secondary to CVA, Status post tracheostomy. Continue pulmonary toilet and neb treatments as needed. Appreciate input from Pulmonary. Chest x-ray 03/13 normal. //Acute renal failure/ hypernatremia/hypokalemia-resolved with IV fluid and water flush via PEG; continue to monitor renal function and electrolytes. Renal US with no hydronephrosis. Appreciate input from nephrology. //A-fib: Currently rate controlled, continue Lopressor. Echocardiogram completed in November shows preserved EF. Monitor INR daily, continue warfarin. //Non-Hodgkin lymphoma: s/p brain biopsy on December 13, by Neurosurgery, Dr. Marin. Pathology consistent with acute infarct without evidence of lymphoma. Seen by Oncology, Dr. Whyte, who has signed off for current admission as no active oncology issues. //DM (diabetes mellitus): HgbA1c 7.0. Continue Levemir, monitor accuchecks, cover with sliding scale- monitor and adjust the regimen as needed. //Hypokalemia: Resolved //Decubitus ulcer stage III: Plastic surgery and Wound care nurse input appreciated and treatment per protocol; repositioning Q2-3H; Information Services Manager consult. //GI/Nutrition: Nepro tube feedings as recommended by dietitian for sodium content. Continue Nepro at 55 cc/hr per dietitian recommendations. //Continue DVT prophylaxis with Coumadin. Discharge Planning appreciate case management assistance. Ramiro Rucker MD Mar 18, 2016:13
[2016-03-19] VITALS (8 sets, daily range): BP systolic 124–131; BP diastolic 77–82; PULSE 84–98; RESP 18–22; TEMP 96.1–97.8; O2SAT 97–99
[2016-03-19] MEDS: FREE WATER TUBE SCH ×6 (03:29→20:00)
[2016-03-19] MEDS: ACETIC ACID 0.25% SOLN 1000 ML IRR BTL IRRIGATION SCH ×3 (05:51→22:00)
[2016-03-19] MEDS: METOPROLOL TARTRATE 50 MG TAB PO SCH ×3 (05:51→21:57)
[2016-03-19] MEDS: INSULIN ASPART SUPPLEMENTAL SCALE SQ SCH ×4 (05:52→17:28)
[2016-03-19] MEDS: SENNOSIDES SYRUP 8.8 MG/5 ML CUP TUBE SCH (07:21)
[2016-03-19] MEDS: RANITIDINE HCL SYRUP 150 MG/10 ML UDC PO SCH (07:21)
[2016-03-19] MEDS: levETIRAcetam 500 MG/5 ML UDC TUBE SCH ×2 (07:21→21:00)
[2016-03-19] MEDS: NYSTATIN 100,000 U/GM PWD 15 GM BTL TOPICAL SCH ×2 (07:22→21:00)
[2016-03-19 08:27] LABS: INTERNATIONAL NORMALIZED RATIO 2.5 RATIO; PROTHROMBIN TIME - PATIENT 27.2 SEC (9.8-11.4)
--- NOTE | 2016-03-19 12:12 | HHI.PR ---
Subjective Remarks Follow-up for CVA and pneumonia. The patient was seen with family and RN at bedside. No acute concerns overnight. Trach was changed to a #6 yesterday. Noted some mild secretions and upper airway congestion with occasional cough, however no worse than previous days. No documented fevers. The patient is nonverbal. He does close his eyes on command, however was not answering questions appropriately when asked to say yes by blinking, and could not track finger. Objective Vitals Vital Signs Date Time Temp Pulse Resp B/P Pulse Ox O2 Delivery O2 Flow Rate FiO2 03/19/16 11:15 98 T-piece 21 03/19/16 11:15 21 03/19/16 08:00 96.1 87 22 127/82 97 03/19/16 04:56 97.8 98 19 124/77 97 03/19/16 00:35 96.5 85 18 131/80 97 03/18/16 22:16 96 T-piece 03/18/16 22:16 96 T-piece 03/18/16 20:00 96.4 94 19 145/85 99 03/18/16 16:00 96.0 83 20 123/77 96 03/18/16 12:39 97.0 90 20 117/77 97 I/O 03/18/16 03/18/16 03/18/16 03/19/16 03/19/16 03/19/16 07:00 15:00 23:00 07:00 15:00 23:00 Intake Total 1280 ml Output Total 1001 ml 1875 ml 1000 ml 1000 ml Balance 279 ml -1875 ml -1000 ml -1000 ml Intake Oral 0 ml Tube Feeding 480 ml Other 800 ml Output Urine Total 1000 ml 1875 ml 1000 ml 1000 ml Stool Total 1 ml # Bowel Movements 1 Result Diagram: 03/17/16 0634 Imaging Last Impressions Chest X-Ray 03/13/16 0000 Signed Impressions: Service Date/Time: Sunday, March 13, 2016 06:21 - CONCLUSION: Stable chest Wellington West MD Head Magnetic Resonance Angiography 03/05/16 0000 Signed Impressions: Service Date/Time: Saturday, March 05, 2016 09:26 - CONCLUSION: Persistent high-grade subtotal occlusive stenotic lesions in the distal right vertebral artery and proximal basilar artery with significant improvement in flow and recanalization following initial presentation of thrombosis. Stable interstitial circulation without significant stenosis. 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 There is decreasing restricted diffusion and increasing loss of volume characteristic of a subacute to chronic infarct. No evidence of acute infarct, acute hemorrhage mass or edema. Ernesto Kulkarni MD Head CT 01/16/16 0000 Signed Impressions: Service Date/Time: Saturday, January 16, 2016 10:51 - CONCLUSION: No extensive low density in the brainstem colin more prominent in the right the left extending into the right middle cerebellar peduncle consistent with brainstem infarct nonhemorrhagic acute Wellington West MD Abdomen X-Ray 01/14/16 0000 Signed Impressions: Service Date/Time: Thursday, January 14, 2016 10:19 - CONCLUSION: Moderate stool; otherwise, negative. 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 No evidence of carotid stenosis. Glen Zmaora MD Head/Brain Mag Res Venography 12/22/15 0000 Signed Impressions: Service Date/Time: Tuesday, December 22, 2015 09:22 - CONCLUSION: Normal MRV. Jonel Jones Jr., MD Objective Remarks GENERAL: Well-nourished, well-developed male patient in [facility]. SKIN: Warm and dry. HEAD: Normocephalic. Atraumatic. EYES: Pupils equal and round. No scleral icterus. No injection or drainage. Eye glasses in place. NECK: Supple. Tracheostomy in place. CARDIOVASCULAR: Tachycardic, regular rhythm. S1, S2 noted. No murmur appreciated. RESPIRATORY: No accessory muscle use. Clear to auscultation. Breath sounds equal bilaterally. GASTROINTESTINAL: Abdomen soft, non-tender, nondistended. Normoactive bowel sounds x4. PEG in place. MUSCULOSKELETAL: No obvious deformities. Extremities without clubbing, cyanosis , or edema. 2+ b/l radial and pedal pulses. NEUROLOGICAL: Eyes locked, open. Does not move any extremities. Nonverbal. Closes eyes on command, however will not track finger. Procedures 01/02/16 PEG placement 01/02/16 tracheostomy Medications and IVs Current Medications Medications (Trade) Dose Ordered Sig/Junior Route Start Time Stop Time Status Last Admin (NS Flush) 2 ml UNSCH PRN IVF 12/21/15 06:00 03/16/16 20:26 (D50w (Vial) Inj) 25 ml UNSCH PRN IV PUSH 12/21/15 13:00 (Glucagon Inj) 1 mg UNSCH PRN OTHER 12/21/15 13:00 (Keppra Liq) 500 mg Q12HR TUBE 12/27/15 21:00 03/19/16 07:21 (Colace Liq) 100 mg Q12HR TUBE 12/27/15 21:00 Hold 01/15/16 09:01 (Tylenol 650 Mg/ 20 ml Liq) 650 mg Q6H PRN TUBE 12/30/15 15:15 03/08/16 00:10 ([place] 5-325 Mg) 1 tab Q6H PRN PO 12/31/15 15:00 03/07/16 17:05 Insulin Aspart 1 1 Q6HR SQ 01/04/16 12:00 03/17/16 05:00 (Coumadin Consult Pharmacy) 0 ml @ 0 mls/hr UNSCH XX 01/04/16 12:30 (Mycostatin Powder) 1 applic Q12HR TOPICAL 01/08/16 21:00 03/19/16 07:22 (Pill Splitter) 1 ea UNSCH PRN OTHER 01/14/16 08:30 (Zantac Liq) 150 mg Q24H PO 01/18/16 09:00 03/19/16 07:21 (Free Water) 400 ml Q4HR TUBE 01/19/16 12:00 03/19/16 07:21 (Acetic Acid 0.25% Irr Btl) 10 ml Q8HR IRRIGATION 02/05/16 16:00 03/19/16 05:51 (Senna Liq) 8.8 mg DAILY TUBE 02/21/16 09:00 03/19/16 07:21 (Levemir Inj) 30 units HS SQ 03/06/16 21:00 03/18/16 20:43 (Ativan Inj) 0.5 mg Q4H PRN IV PUSH 03/07/16 23:00 (Coumadin) 3 mg DAILY@16 PO 03/10/16 16:00 03/18/16 15:23 (Lopressor) 75 mg Q8HR PO 03/10/16 22:00 03/19/16 05:51 (Paxil Liq) 20 mg DAILY@1900 PEG 03/12/16 19:00 03/18/16 17:35 Urinary Catheter: Yes Assessment to: Continue Date of Insertion: Mar 07, 2016 A/P Problem List: (1) CVA (cerebral vascular accident) Status: Acute (2) A-fib Status: Chronic (3) DM (diabetes mellitus) Status: Chronic Assessment and Plan 60-year-old male with: CVA (cerebral vascular accident); 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 Significant residual cognitive deficit. Non verbal. Continue Keppra and Coumadin- neurology reconsulted. Palliative care following. Monitor Keppra level. Continue ST, OT, and PT. NPO per ST. Pneumonia with MRSA: patient having fevers 02/27-03/08, Blood cultures on 03/03 grew gram-negative rods in 1 out of 4 bottles, repeat blood cultures 03/06 negative. Sputum culture 03/08 with MRSA. Infectious disease consulted, Bactrim and Flagyl completed 03/14, Vanco completed 03/17. Do not repeat culture unless fevers return, per ID. UTI: Resolved. Urine culture with Klebsiella on 01/31 and repeat on 03/06 negative. Arevalo replaced on 03/07. Acute respiratory failure: Resolved; Secondary to CVA, Status post tracheostomy. Continue pulmonary toilet and neb treatments as needed. Appreciate input from Pulmonary. CXR 03/13 normal. Acute renal failure/ hypernatremia/hypokalemia-resolved with IV fluid and water flush via PEG; continue to monitor renal function and electrolytes. Renal US with no hydronephrosis. Appreciate input from nephrology. A-fib: Currently rate controlled, continue Lopressor. Echocardiogram completed in November shows preserved EF. Monitor INR daily, continue warfarin. Non-Hodgkin lymphoma: s/p brain biopsy on December 13, by Neurosurgery, Dr. Marin. Pathology consistent with acute infarct without evidence of lymphoma. Seen by Oncology, Dr. Whyte, who has signed off for current admission as no active oncology issues DM (diabetes mellitus): HgbA1c 7.0. Continue Levemir, monitor accuchecks, cover with sliding scale- monitor and adjust the regimen as needed. Hypokalemia: Resolved Decubitus ulcer stage III: Plastic surgery and Wound care nurse input appreciated and treatment per protocol; repositioning Q2-3H; Radiology Supervisor consult. GI/Nutrition: Nepro tube feedings as recommended by dietitian for sodium content. Continue Nepro at 55 cc/hr per dietitian recommendations. DVT prophylaxis with Coumadin. Discharge Planning Discharge planning per case management, needs placement, SSI pending. Problem Qualifiers (1) DM (diabetes mellitus): Qualified Code: E11.9 - Type 2 diabetes mellitus without complications Ernestine Townsend PA-C Mar 19, 2016 12:12
[2016-03-19] MEDS: WARFARIN SOD 3 MG TAB PO SCH (15:26)
[2016-03-19] MEDS: PARoxetine HCL SUSP 20 MG/10 ML UDC PEG SCH (17:28)
[2016-03-19] MEDS: INSULIN DETEMIR 100 UNITS/ML VIAL SQ SCH (21:57)
[2016-03-20] VITALS (7 sets, daily range): BP systolic 119–133; BP diastolic 78–86; PULSE 85–100; RESP 19–20; TEMP 97.2–98.9; O2SAT 96–98
[2016-03-20] MEDS: FREE WATER TUBE SCH ×6 (04:00→20:00)
[2016-03-20] MEDS: ACETIC ACID 0.25% SOLN 1000 ML IRR BTL IRRIGATION SCH ×3 (05:31→20:51)
[2016-03-20] MEDS: METOPROLOL TARTRATE 50 MG TAB PO SCH ×3 (05:31→20:47)
[2016-03-20] MEDS: INSULIN ASPART SUPPLEMENTAL SCALE SQ SCH ×4 (05:42→18:00)
[2016-03-20 08:54] LABS: INTERNATIONAL NORMALIZED RATIO 2.3 RATIO; PROTHROMBIN TIME - PATIENT 25.6 SEC (9.8-11.4)
[2016-03-20] MEDS: RANITIDINE HCL SYRUP 150 MG/10 ML UDC PO SCH (08:59)
[2016-03-20] MEDS: levETIRAcetam 500 MG/5 ML UDC TUBE SCH ×2 (08:59→20:47)
[2016-03-20] MEDS: SENNOSIDES SYRUP 8.8 MG/5 ML CUP TUBE SCH (08:59)
[2016-03-20] MEDS: NYSTATIN 100,000 U/GM PWD 15 GM BTL TOPICAL SCH ×2 (09:00→20:48)
--- NOTE | 2016-03-20 15:26 | HHI.PR ---
Subjective Remarks Follow-up for CVA. Patient seen with family at bedside. Occasionally the family noticed the patient is coughing, nonproductive. No increased secretions noted. Discussed with RN, no acute concerns. The family is concerned about the decubitus ulcer wound healing today. No fevers noted. Objective Vitals Vital Signs Date Time Temp Pulse Resp B/P Pulse Ox O2 Delivery O2 Flow Rate FiO2 03/20/16 12:00 97.2 91 20 126/86 98 03/20/16 11:46 100 Humidified 6.00 28 03/20/16 08:00 98.9 85 20 119/78 96 03/20/16 05:02 98.8 100 19 120/78 97 03/20/16 00:09 97.6 87 19 121/81 98 03/19/16 21:00 Trach Collar 6.00 21 T-Piece Humidified 03/19/16 21:00 85 03/19/16 20:35 99 T-piece 21 03/19/16 20:35 98 T-piece 21 03/19/16 20:09 97.3 93 19 128/78 98 03/19/16 16:00 96.5 84 22 129/81 98 I/O 03/19/16 03/19/16 03/19/16 03/20/16 03/20/16 03/20/16 07:00 15:00 23:00 07:00 15:00 23:00 Intake Total 1460 ml Output Total 1000 ml 600 ml Balance -1000 ml -600 ml 1460 ml Tube Feeding 660 ml Other 800 ml Output Urine Total 1000 ml 600 ml # Bowel Movements 1 Result Diagram: 03/17/16 0634 Objective Remarks GENERAL: Well-developed well-nourished. In no acute distress. SKIN: Warm and dry. Stage IV sacral ulcer. HEENT: Normocephalic. Pupils equal and round. Mucous membranes pink and moist. Trach in place. CARDIOVASCULAR: Controlled but irregular rate and irregular rhythm. No murmur appreciated. RESPIRATORY: No accessory muscle use. Clear to auscultation. Breath sounds equal bilaterally. Occasional crackles noted. GASTROINTESTINAL: Abdomen soft, non-tender, nondistended. Bowel sounds x4. PEG in place. MUSCULOSKELETAL: No obvious deformities. No clubbing or cyanosis. No edema. NEUROLOGICAL: Awake and alert. Eyes open, moves eyes on command and blinks to answer questions. Locked in. Nonverbal. 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 Significant residual cognitive deficit. Non verbal. Continue Keppra and Coumadin- neurology consulted. Palliative care following. Monitor Keppra level. Continue ST, OT, and PT. NPO per ST. Pneumonia with MRSA: patient having fevers 02/27-03/08, Blood cultures on 03/03 grew gram-negative rods in 1 out of 4 bottles, repeat blood cultures 03/06 negative. Sputum culture 03/08 with MRSA. Infectious disease consulted, Bactrim and Flagyl completed 03/14, Vanco completed 03/17. Do not repeat culture unless fevers return, per ID. UTI: Resolved. Urine culture with Klebsiella on 01/31 and repeat on 03/06 negative. Arevalo replaced on 03/07. Acute respiratory failure: Resolved; Secondary to CVA, Status post tracheostomy. Continue pulmonary toilet and neb treatments as needed. Appreciate input from Pulmonary. CXR 03/13 normal. Acute renal failure/ hypernatremia/hypokalemia-resolved with IV fluid and water flush via PEG; continue to monitor renal function and electrolytes. Renal US with no hydronephrosis. Appreciate input from nephrology. A-fib: Currently rate controlled, continue Lopressor. Echocardiogram completed in November shows preserved EF. Monitor INR daily, continue warfarin. Non-Hodgkin lymphoma: s/p brain biopsy on December 13, by Neurosurgery, Dr. Marin. Pathology consistent with acute infarct without evidence of lymphoma. Seen by Oncology, Dr. Whyte, who has signed off for current admission as no active oncology issues DM (diabetes mellitus): HgbA1c 7.0. Continue Levemir, monitor accuchecks, cover with sliding scale- monitor and adjust the regimen as needed. Hypokalemia: Resolved Decubitus ulcer stage III: Plastic surgery and Wound care nurse input appreciated and treatment per protocol; repositioning Q2-3H; Casing Wringer Operator consult. GI/Nutrition: Nepro tube feedings as recommended by dietitian for sodium content. Continue Nepro at 55 cc/hr per dietitian recommendations. DVT prophylaxis with Coumadin. Discharge Planning Patient will need placement. SSI pending for funding. Problem Qualifiers (1) DM (diabetes mellitus): Qualified Code: E11.9 - Type 2 diabetes mellitus without complications Floyd Vinson Mar 20, 2016 15:26
[2016-03-20] MEDS: WARFARIN SOD 3 MG TAB PO SCH (16:51)
[2016-03-20] MEDS: PARoxetine HCL SUSP 20 MG/10 ML UDC PEG SCH (18:15)
[2016-03-20] MEDS: INSULIN DETEMIR 100 UNITS/ML VIAL SQ SCH (20:48)
[2016-03-20] MEDS: SODIUM CHLORIDE 0.9% FLUSH 5 ML FLUSH IVF PRN (20:50)
[2016-03-21] VITALS (9 sets, daily range): BP systolic 127–141; BP diastolic 82–95; PULSE 87–108; RESP 14–20; TEMP 96.5–98.1; O2SAT 96–99
[2016-03-21] MEDS: FREE WATER TUBE SCH ×6 (04:00→20:00)
[2016-03-21] MEDS: ACETIC ACID 0.25% SOLN 1000 ML IRR BTL IRRIGATION SCH ×3 (04:30→22:33)
[2016-03-21] MEDS: METOPROLOL TARTRATE 50 MG TAB PO SCH ×3 (04:30→22:33)
[2016-03-21] MEDS: INSULIN ASPART SUPPLEMENTAL SCALE SQ SCH ×4 (05:34→18:00)
[2016-03-21 07:50] LABS: PROTHROMBIN TIME - PATIENT 22.1 SEC (9.8-11.4)
[2016-03-21] MEDS: RANITIDINE HCL SYRUP 150 MG/10 ML UDC PO SCH (07:52)
[2016-03-21] MEDS: levETIRAcetam 500 MG/5 ML UDC TUBE SCH ×2 (07:52→22:32)
[2016-03-21] MEDS: NYSTATIN 100,000 U/GM PWD 15 GM BTL TOPICAL SCH ×2 (07:52→22:33)
[2016-03-21] MEDS: SENNOSIDES SYRUP 8.8 MG/5 ML CUP TUBE SCH (07:53)
--- NOTE | 2016-03-21 14:49 | HHI.PR ---
Subjective Remarks Follow up for CVA. Patient seen with family and RN at bedside. The patient is doing well today. He is little tachycardic, rate 110, but is receiving metoprolol now. His secretions are noted to be a little pink yesterday, but they're clear today. No fevers noted. Wound was dressed last night and this morning. Objective Vitals Vital Signs Date Time Temp Pulse Resp B/P Pulse Ox O2 Delivery O2 Flow Rate FiO2 03/21/16 12:26 97.6 101 15 133/87 97 03/21/16 11:11 100 Humidified 6.00 28 03/21/16 07:30 98.1 87 14 127/85 96 03/21/16 07:07 98 03/21/16 04:38 96.5 108 18 136/83 96 03/21/16 00:07 97.2 90 18 132/87 97 03/20/16 20:34 98 Humidified 6.00 28 03/20/16 20:34 97.7 98 20 133/86 98 03/20/16 20:16 98 T-piece 21 03/20/16 20:16 98 T-piece 21 03/20/16 20:00 86 03/20/16 16:30 6.00 21 I/O 03/20/16 03/20/16 03/20/16 03/21/16 03/21/16 03/21/16 07:00 15:00 23:00 07:00 15:00 23:00 Intake Total 1460 ml Output Total 1000 ml 1800 ml Balance 1460 ml -1000 ml -1800 ml Tube Feeding 660 ml Other 800 ml Output Urine Total 1000 ml 1800 ml # Bowel Movements 2 Result Diagram: 03/17/16 0634 Objective Remarks GENERAL: Well-developed well-nourished. In no acute distress. SKIN: Warm and dry. Stage IV sacral ulcer. HEENT: Normocephalic. Pupils equal and round. Mucous membranes pink and moist. Trach in place. CARDIOVASCULAR: Controlled but irregular rate and irregular rhythm. No murmur appreciated. RESPIRATORY: No accessory muscle use. Clear to auscultation. Breath sounds equal bilaterally. GASTROINTESTINAL: Abdomen soft, non-tender, nondistended. Bowel sounds x4. PEG in place. MUSCULOSKELETAL: No obvious deformities. No clubbing or cyanosis. No edema. NEUROLOGICAL: Awake and alert. Eyes open, moves eyes on command and blinks to answer questions. Locked in. Nonverbal. 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 Significant residual cognitive deficit. Non verbal. Continue Keppra and Coumadin- neurology consulted. Palliative care following. Monitor Keppra level. Continue ST, OT, and PT. NPO per ST. Pneumonia with MRSA: patient having fevers 02/27-03/08, Blood cultures on 03/03 grew gram-negative rods in 1 out of 4 bottles, repeat blood cultures 03/06 negative. Sputum culture 03/08 with MRSA. Infectious disease consulted, Bactrim and Flagyl completed 03/14, Vanco completed 03/17. Do not repeat culture unless fevers return, per ID. UTI: Resolved. Urine culture with Klebsiella on 01/31 and repeat on 03/06 negative. Arevalo replaced on 03/07. Acute respiratory failure: Resolved; Secondary to CVA, Status post tracheostomy. Continue pulmonary toilet and neb treatments as needed. Appreciate input from Pulmonary. CXR 03/13 normal. Acute renal failure/ hypernatremia/hypokalemia-resolved with IV fluid and water flush via PEG; continue to monitor renal function and electrolytes. Renal US with no hydronephrosis. Appreciate input from nephrology. A-fib: Currently rate controlled, continue Lopressor. Echocardiogram completed in November shows preserved EF. Monitor INR daily, continue warfarin. Non-Hodgkin lymphoma: s/p brain biopsy on December 13, by Neurosurgery, Dr. Marin. Pathology consistent with acute infarct without evidence of lymphoma. Seen by Oncology, Dr. Whyte, who has signed off for current admission as no active oncology issues DM (diabetes mellitus): HgbA1c 7.0. Continue Levemir, monitor accuchecks, cover with sliding scale- monitor and adjust the regimen as needed. Decubitus ulcer stage III: Plastic surgery and Wound care nurse input appreciated and treatment per protocol; repositioning Q2-3H; Account Adjuster consult. GI/Nutrition: Continue Nepro at 55 cc/hr per dietitian recommendations. DVT prophylaxis with Coumadin. Discharge Planning Patient will need placement. SSI pending for funding. Problem Qualifiers (1) DM (diabetes mellitus): Qualified Code: E11.9 - Type 2 diabetes mellitus without complications Floyd Vinson Mar 21, 2016 14:49 Ramiro Rucker MD Mar 22, 2016 00:15 Floyd Vinson Mar 21, 2016 14:49
[2016-03-21] MEDS: WARFARIN SOD 3 MG TAB PO SCH (16:24)
[2016-03-21] MEDS: PARoxetine HCL SUSP 20 MG/10 ML UDC PEG SCH (18:20)
[2016-03-21] MEDS: INSULIN DETEMIR 100 UNITS/ML VIAL SQ SCH (22:32)
[2016-03-22] VITALS (9 sets, daily range): BP systolic 116–145; BP diastolic 75–91; PULSE 90–110; RESP 14–20; TEMP 96.4–98.7; O2SAT 95–99
[2016-03-22] MEDS: FREE WATER TUBE SCH ×6 (04:00→20:18)
[2016-03-22] MEDS: INSULIN ASPART SUPPLEMENTAL SCALE SQ SCH ×4 (06:00→18:00)
[2016-03-22 07:21] LABS: INTERNATIONAL NORMALIZED RATIO 1.9 RATIO; PROTHROMBIN TIME - PATIENT 20.5 SEC (9.8-11.4)
[2016-03-22] MEDS: ACETIC ACID 0.25% SOLN 1000 ML IRR BTL IRRIGATION SCH ×3 (07:32→20:30)
[2016-03-22] MEDS: METOPROLOL TARTRATE 50 MG TAB PO SCH ×3 (07:32→20:42)
[2016-03-22] MEDS: NYSTATIN 100,000 U/GM PWD 15 GM BTL TOPICAL SCH ×2 (09:00→20:30)
[2016-03-22] MEDS: SENNOSIDES SYRUP 8.8 MG/5 ML CUP TUBE SCH (09:00)
[2016-03-22] MEDS: levETIRAcetam 500 MG/5 ML UDC TUBE SCH ×2 (10:00→20:18)
[2016-03-22] MEDS: RANITIDINE HCL SYRUP 150 MG/10 ML UDC PO SCH (10:00)
--- NOTE | 2016-03-22 15:09 | HHI.PR ---
Subjective Remarks Follow-up for CVA. Patient seen with family and RN at bedside. They said the patient has been having some increased secretions today. His oxygen saturation improves whenever he is suctioned. His family is also concerned that his heart rate has remained around 100 persistently. No fevers noted. Sacral wound was dressed today. Objective Vitals Vital Signs Date Time Temp Pulse Resp B/P Pulse Ox O2 Delivery O2 Flow Rate FiO2 03/22/16 14:53 100 Humidified 6.00 28 03/22/16 12:00 97.4 102 16 120/83 99 03/22/16 08:55 98.2 110 14 116/84 98 03/22/16 04:00 97.3 95 20 124/75 98 03/22/16 00:00 97.4 96 20 138/79 97 03/21/16 21:10 98 Trach Collar T-Piece 03/21/16 20:13 97 T-piece 50 03/21/16 20:02 95 03/21/16 20:00 97.0 108 20 141/82 96 03/21/16 16:00 96.9 97 16 137/95 99 I/O 03/21/16 03/21/16 03/21/16 03/22/16 03/22/16 03/22/16 07:00 15:00 23:00 07:00 15:00 23:00 Intake Total 1800 ml 950 ml Output Total 1800 ml 850 ml 1600 ml Balance -1800 ml -850 ml 1800 ml -650 ml Tube Feeding 600 ml 950 ml Other 1200 ml Output Urine Total 1800 ml 850 ml 1600 ml # Bowel Movements 0 Objective Remarks GENERAL: Well-developed well-nourished. In no acute distress. SKIN: Warm and dry. Stage IV sacral ulcer. HEENT: Normocephalic. Pupils equal and round. Mucous membranes pink and moist. Trach in place. CARDIOVASCULAR: Irregular rate and irregular rhythm. No murmur appreciated. RESPIRATORY: No accessory muscle use. Clear to auscultation. Breath sounds equal bilaterally. GASTROINTESTINAL: Abdomen soft, non-tender, nondistended. Bowel sounds x4. PEG in place. MUSCULOSKELETAL: No obvious deformities. No clubbing or cyanosis. No edema. NEUROLOGICAL: Awake and alert. Eyes open, moves eyes on command and blinks to answer questions. Locked in. Nonverbal. 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 Significant residual cognitive deficit. Non verbal. Continue Keppra and Coumadin- neurology consulted. Palliative care following. Monitor Keppra level (wnls 03/08). Continue ST, OT, and PT. NPO per ST. Pneumonia with MRSA: patient having fevers 02/27-03/08, Blood cultures on 03/03 grew gram-negative rods in 1 out of 4 bottles, repeat blood cultures 03/06 negative. Sputum culture 03/08 with MRSA. Infectious disease consulted, Bactrim and Flagyl completed 03/14, Vanco completed 03/17. Do not repeat culture unless fevers return, per ID. UTI: Resolved. Urine culture with Klebsiella on 01/31 and repeat on 03/06 negative. Arevalo replaced on 03/07. Acute respiratory failure: Resolved; Secondary to CVA, Status post tracheostomy. Continue pulmonary toilet and neb treatments as needed. Appreciate input from Pulmonary. CXR 03/13 normal. Add Levsin for secretions. Acute renal failure/ hypernatremia/hypokalemia-resolved with IV fluid and water flush via PEG; continue to monitor renal function and electrolytes. Renal US with no hydronephrosis. Appreciate input from nephrology. A-fib: Heart rate is a bit tachycardic, continue Lopressor, start Cardizem. Echocardiogram completed in November shows preserved EF. Monitor INR daily, continue warfarin. Non-Hodgkin lymphoma: s/p brain biopsy on December 13, by Neurosurgery, Dr. Marin. Pathology consistent with acute infarct without evidence of lymphoma. Seen by Oncology, Dr. Whyte, who has signed off for current admission as no active oncology issues DM (diabetes mellitus): HgbA1c 7.0. Increase Levemir from 30 units daily to 32. Monitor accuchecks, cover with sliding scale- monitor and adjust the regimen as needed. Decubitus ulcer stage III: Plastic surgery and Wound care nurse input appreciated and treatment per protocol; repositioning Q2-3H; Real Estate Accountant consult. GI/Nutrition: Continue Nepro at 55 cc/hr per dietitian recommendations. DVT prophylaxis with Coumadin. Discharge Planning Discussed with case management, patient was approved for Medicaid, SSI pending. Will need long-term SNF placement. Problem Qualifiers (1) DM (diabetes mellitus): Qualified Code: E11.9 - Type 2 diabetes mellitus without complications Floyd Vinson Mar 22, 2016 15:09 Ramiro Rucker MD Mar 22, 2016 18:47
[2016-03-22] MEDS: WARFARIN SOD 3 MG TAB PO SCH (17:46)
[2016-03-22] MEDS: HYOSCYAMINE SOLN 0.125 MG/ML 15 ML BTL PEG PRN (17:47)
[2016-03-22] MEDS: DILTIAZEM-CD 120 MG CAP ER PO SCH (17:47)
[2016-03-22] MEDS: PARoxetine HCL SUSP 20 MG/10 ML UDC PEG SCH (20:18)
--- NOTE | 2016-03-22 20:22 | HHI.PR ---
Subjective Remarks 60 YO Male with RF, Encephalopathy On Trach collar Cough on suctioning Family at Awake, some tracking of objects noted Objective Vital Signs Vital Signs Date Time Temp Pulse Resp B/P Pulse Ox O2 Delivery O2 Flow Rate FiO2 03/22/16 19:46 95 Trach Collar 95 03/22/16 18:13 98 T-piece 50 03/22/16 16:56 96.4 90 17 129/91 98 03/22/16 14:53 100 Humidified 6.00 28 03/22/16 12:00 97.4 102 16 120/83 99 03/22/16 08:55 98.2 110 14 116/84 98 03/22/16 08:00 110 03/22/16 04:00 97.3 95 20 124/75 98 03/22/16 00:00 97.4 96 20 138/79 97 03/21/16 21:10 98 Trach Collar T-Piece I/O 03/21/16 03/21/16 03/21/16 03/22/16 03/22/16 03/22/16 07:00 15:00 23:00 07:00 15:00 23:00 Intake Total 1800 ml 950 ml Output Total 1800 ml 850 ml 1600 ml 1200 ml Balance -1800 ml -850 ml 1800 ml -650 ml -1200 ml Tube Feeding 600 ml 950 ml Other 1200 ml Output Urine Total 1800 ml 850 ml 1600 ml 1200 ml # Bowel Movements 0 1 Objective Remarks GENERAL: Well-nourished, well-developed patient. SKIN: Warm and dry. HEAD: Normocephalic. EYES: No scleral icterus. No injection or drainage. NECK: Supple, trachea midline. No JVD or lymphadenopathy. trach in place CARDIOVASCULAR: Regular rate and rhythm without murmurs, gallops, or rubs. RESPIRATORY: Breath sounds equal bilaterally. No accessory muscle use. GASTROINTESTINAL: Abdomen soft, non-tender, nondistended. MUSCULOSKELETAL: No cyanosis, or edema. BACK: Nontender without obvious deformity. No CVA tenderness. A/P Assessment and Plan Resp Failure, s/p trach Encephalopathy AF DM PLAN: Trach care TF Cont Cristopher March DW family at . Aureliano Grove MD Mar 22, 2016 20:21
[2016-03-23] VITALS (9 sets, daily range): BP systolic 117–139; BP diastolic 70–82; PULSE 89–106; RESP 18–22; TEMP 95.2–98.3; O2SAT 93–98
[2016-03-23] MEDS: FREE WATER TUBE SCH ×6 (01:03→20:01)
[2016-03-23] MEDS: INSULIN ASPART SUPPLEMENTAL SCALE SQ SCH ×4 (01:03→17:25)
[2016-03-23] MEDS: HYOSCYAMINE SOLN 0.125 MG/ML 15 ML BTL PEG PRN ×3 (01:17→20:13)
[2016-03-23] MEDS: METOPROLOL TARTRATE 50 MG TAB PO SCH ×3 (06:20→20:01)
[2016-03-23] MEDS: ACETIC ACID 0.25% SOLN 1000 ML IRR BTL IRRIGATION SCH ×3 (06:27→20:13)
[2016-03-23 08:20] LABS: INTERNATIONAL NORMALIZED RATIO 1.9 RATIO
[2016-03-23] MEDS: NYSTATIN 100,000 U/GM PWD 15 GM BTL TOPICAL SCH ×2 (08:38→20:01)
[2016-03-23] MEDS: levETIRAcetam 500 MG/5 ML UDC TUBE SCH ×2 (08:38→20:01)
[2016-03-23] MEDS: SENNOSIDES SYRUP 8.8 MG/5 ML CUP TUBE SCH (08:38)
[2016-03-23] MEDS: RANITIDINE HCL SYRUP 150 MG/10 ML UDC PO SCH (08:38)
[2016-03-23] MEDS: DILTIAZEM-CD 120 MG CAP ER PO SCH (08:38)
--- NOTE | 2016-03-23 12:06 | HHI.PR ---
Subjective Remarks 60 YO Male with RF, Encephalopathy On Trach collar Cough on suctioning Family at Awake, some tracking of objects noted No new complaint Objective Vital Signs Vital Signs Date Time Temp Pulse Resp B/P Pulse Ox O2 Delivery O2 Flow Rate FiO2 03/23/16 10:00 98 T-piece 5.00 21 03/23/16 08:30 96 03/23/16 08:30 100 Humidified 6.00 28 03/23/16 08:00 97.5 91 22 120/75 94 03/23/16 04:00 97.8 106 20 138/82 95 03/23/16 00:00 97.5 96 20 133/78 98 03/22/16 20:00 98.7 102 20 145/76 97 03/22/16 19:46 95 Trach Collar 95 03/22/16 18:13 98 T-piece 50 03/22/16 16:56 96.4 90 17 129/91 98 03/22/16 14:53 100 Humidified 6.00 28 I/O 03/22/16 03/22/16 03/22/16 03/23/16 03/23/16 03/23/16 07:00 15:00 23:00 07:00 15:00 23:00 Intake Total 950 ml 800 ml 400 ml Output Total 1600 ml 1200 ml 1950 ml Balance -650 ml -400 ml 400 ml -1950 ml Tube Feeding 950 ml Other 800 ml 400 ml Output Urine Total 1600 ml 1200 ml 1950 ml # Bowel Movements 1 2 Objective Remarks GENERAL: Well-nourished, well-developed patient. SKIN: Warm and dry. HEAD: Normocephalic. EYES: No scleral icterus. No injection or drainage. NECK: Supple, trachea midline. No JVD or lymphadenopathy. trach in place CARDIOVASCULAR: Regular rate and rhythm without murmurs, gallops, or rubs. RESPIRATORY: Breath sounds equal bilaterally. No accessory muscle use. GASTROINTESTINAL: Abdomen soft, non-tender, nondistended. MUSCULOSKELETAL: No cyanosis, or edema. BACK: Nontender without obvious deformity. No CVA tenderness. A/P Assessment and Plan Resp Failure, s/p trach Encephalopathy AF DM PLAN: Trach care TF Cont Cristopher March DW family at . Aureliano Grove MD Mar 23, 2016 12:06
--- NOTE | 2016-03-23 13:43 | HHI.PR ---
Subjective Remarks Follow-up for CVA. The patient is a bit more attentive today. Family at bedside feel that his secretions are better today. They have noticed that his heart rate seems to be better today. No acute complaints today. Objective Vitals Vital Signs Date Time Temp Pulse Resp B/P Pulse Ox O2 Delivery O2 Flow Rate FiO2 03/23/16 10:00 98 T-piece 5.00 21 03/23/16 08:30 96 03/23/16 08:30 100 Humidified 6.00 28 03/23/16 08:00 97.5 91 22 120/75 94 03/23/16 04:00 97.8 106 20 138/82 95 03/23/16 00:00 97.5 96 20 133/78 98 03/22/16 20:00 98.7 102 20 145/76 97 03/22/16 19:46 95 Trach Collar 95 03/22/16 18:13 98 T-piece 50 03/22/16 16:56 96.4 90 17 129/91 98 03/22/16 14:53 100 Humidified 6.00 28 I/O 03/22/16 03/22/16 03/22/16 03/23/16 03/23/16 03/23/16 07:00 15:00 23:00 07:00 15:00 23:00 Intake Total 950 ml 800 ml 400 ml Output Total 1600 ml 1200 ml 1950 ml Balance -650 ml -400 ml 400 ml -1950 ml Tube Feeding 950 ml Other 800 ml 400 ml Output Urine Total 1600 ml 1200 ml 1950 ml # Bowel Movements 1 2 Objective Remarks GENERAL: Well-developed well-nourished. In no acute distress. SKIN: Warm and dry. Stage IV sacral ulcer. HEENT: Normocephalic. Pupils equal and round. Mucous membranes pink and moist. Trach in place. CARDIOVASCULAR: Irregular but controlled rate and irregular rhythm. No murmur appreciated. RESPIRATORY: No accessory muscle use. Clear to auscultation. Breath sounds equal bilaterally. GASTROINTESTINAL: Abdomen soft, non-tender, nondistended. Bowel sounds x4. PEG in place. MUSCULOSKELETAL: No obvious deformities. No clubbing or cyanosis. No edema. NEUROLOGICAL: Awake and alert. Eyes open, moves eyes on command and blinks to answer questions. Locked in. Nonverbal. 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 Significant residual cognitive deficit. Non verbal. Continue Keppra and Coumadin- neurology consulted. Palliative care following. Monitor Keppra level (wnls 03/08). Continue ST, OT, and PT. NPO per ST. Pneumonia with MRSA: patient having fevers 02/27-03/08, Blood cultures on 03/03 grew gram-negative rods in 1 out of 4 bottles, repeat blood cultures 03/06 negative. Sputum culture 03/08 with MRSA. Infectious disease consulted, Bactrim and Flagyl completed 03/14, Vanco completed 03/17. Do not repeat culture unless fevers return, per ID. UTI: Resolved. Urine culture with Klebsiella on 01/31 and repeat on 03/06 negative. Arevalo replaced on 03/07. Acute respiratory failure: Resolved; Secondary to CVA, Status post tracheostomy. Continue pulmonary toilet and neb treatments as needed. Appreciate input from Pulmonary. CXR 03/13 normal. Add Levsin for secretions. Acute renal failure/ hypernatremia/hypokalemia-resolved with IV fluid and water flush via PEG; continue to monitor renal function and electrolytes. Renal US with no hydronephrosis. Appreciate input from nephrology. A-fib: Cardizem started, heart rate better controlled. Continue Lopressor. Echocardiogram completed in November shows preserved EF. Monitor INR daily, continue warfarin. Non-Hodgkin lymphoma: s/p brain biopsy on December 13, by Neurosurgery, Dr. Marin. Pathology consistent with acute infarct without evidence of lymphoma. Seen by Oncology, Dr. Whyte, who has signed off for current admission as no active oncology issues DM (diabetes mellitus): HgbA1c 7.0. Optimize blood glucose control, increase Levemir from 32 units daily to 34. Monitor accuchecks, cover with sliding scale - monitor and adjust the regimen as needed. Decubitus ulcer stage III: Plastic surgery and Wound care nurse input appreciated and treatment per protocol; repositioning Q2-3H; Ground Water Contractor consult. GI/Nutrition: Continue Nepro at 55 cc/hr per dietitian recommendations. DVT prophylaxis with Coumadin. Discharge Planning Patient was approved for Medicaid, SSI pending. Will need long-term SNF placement. Problem Qualifiers (1) DM (diabetes mellitus): Qualified Code: E11.9 - Type 2 diabetes mellitus without complications Floyd Vinson Mar 23, 2016 13:43
[2016-03-23] MEDS: WARFARIN SOD 3 MG TAB PO SCH (17:25)
[2016-03-23] MEDS: PARoxetine HCL SUSP 20 MG/10 ML UDC PEG SCH (17:25)
[2016-03-24] VITALS (9 sets, daily range): BP systolic 123–142; BP diastolic 75–84; PULSE 83–108; RESP 19–20; TEMP 96.3–97.9; O2SAT 95–98
[2016-03-24] MEDS: INSULIN ASPART SUPPLEMENTAL SCALE SQ SCH ×5 (00:26→21:40)
[2016-03-24] MEDS: FREE WATER TUBE SCH ×6 (00:26→21:38)
[2016-03-24] MEDS: ACETIC ACID 0.25% SOLN 1000 ML IRR BTL IRRIGATION SCH ×3 (04:40→21:21)
[2016-03-24] MEDS: METOPROLOL TARTRATE 50 MG TAB PO SCH ×3 (05:14→21:20)
[2016-03-24] MEDS: HYOSCYAMINE SOLN 0.125 MG/ML 15 ML BTL PEG PRN ×2 (05:14→08:30)
[2016-03-24 07:22] LABS: INTERNATIONAL NORMALIZED RATIO 2.2 RATIO; PROTHROMBIN TIME - PATIENT 24.2 SEC (9.8-11.4)
[2016-03-24] MEDS: RANITIDINE HCL SYRUP 150 MG/10 ML UDC PO SCH (08:30)
[2016-03-24] MEDS: SENNOSIDES SYRUP 8.8 MG/5 ML CUP TUBE SCH (08:30)
[2016-03-24] MEDS: NYSTATIN 100,000 U/GM PWD 15 GM BTL TOPICAL SCH ×2 (08:30→21:22)
[2016-03-24] MEDS: DILTIAZEM-CD 120 MG CAP ER PO SCH (08:30)
[2016-03-24] MEDS: levETIRAcetam 500 MG/5 ML UDC TUBE SCH ×2 (08:30→21:20)
--- NOTE | 2016-03-24 13:55 | HHI.PR ---
Subjective Remarks Follow up for CVA. The patient is seen and examined with family at bedside. I discussed with the patient's cousin who is a radiation oncologist in [place]. They voiced no acute complaints today. They wanted to make sure that the patient had been evaluated by ST, pulmonary, and oncology. The patient follows commands and turns his head some today when his family speaks to him. Objective Vitals Vital Signs Date Time Temp Pulse Resp B/P Pulse Ox O2 Delivery O2 Flow Rate FiO2 03/24/16 12:35 97.0 99 20 126/80 95 03/24/16 09:02 100 Humidified 6.00 28 03/24/16 08:45 83 03/24/16 08:25 96 T-piece 03/24/16 08:25 96 T-piece 03/24/16 08:17 96.8 91 20 142/81 98 03/24/16 05:25 97.9 108 19 142/84 96 03/24/16 01:33 95 T-piece 03/24/16 01:33 95 T-piece 03/23/16 20:36 98.3 102 18 117/77 96 03/23/16 17:45 97 T-piece 03/23/16 16:00 95.5 89 20 139/80 98 I/O 03/23/16 03/23/16 03/23/16 03/24/16 03/24/16 03/24/16 07:00 15:00 23:00 07:00 15:00 23:00 Intake Total 800 ml Output Total 2950 ml 750 ml 1700 ml Balance -2950 ml -750 ml -1700 ml 800 ml Other 800 ml Output Urine Total 2950 ml 750 ml 1700 ml # Bowel Movements 2 1 Objective Remarks GENERAL: Well-developed well-nourished. In no acute distress. SKIN: Warm and dry. Stage IV sacral ulcer. HEENT: Normocephalic. Pupils equal and round. Mucous membranes pink and moist. Trach in place. CARDIOVASCULAR: Irregular but controlled rate and irregular rhythm. No murmur appreciated. RESPIRATORY: No accessory muscle use. Clear to auscultation. Breath sounds equal bilaterally. GASTROINTESTINAL: Abdomen soft, non-tender, nondistended. Bowel sounds x4. PEG in place. MUSCULOSKELETAL: No obvious deformities. No clubbing or cyanosis. No edema. NEUROLOGICAL: Awake and alert. Eyes open, moves eyes on command and turns had some, blinks to answer questions. Locked in. Nonverbal. 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 Significant residual cognitive deficit. Non verbal. Continue Keppra and Coumadin- neurology consulted. Palliative care following. Monitor Keppra level (wnls 03/08). Continue ST, OT, and PT. NPO per ST. Pneumonia with MRSA: patient having fevers 02/27-03/08, Blood cultures on 03/03 grew gram-negative rods in 1 out of 4 bottles, repeat blood cultures 03/06 negative. Sputum culture 03/08 with MRSA. Infectious disease consulted, Bactrim and Flagyl completed 03/14, Vanco completed 03/17. Do not repeat culture unless fevers return, per ID. UTI: Resolved. Urine culture with Klebsiella on 01/31 and repeat on 03/06 negative. Arevalo replaced on 03/07. Acute respiratory failure: Resolved; Secondary to CVA, Status post tracheostomy. Continue pulmonary toilet and neb treatments as needed. Appreciate input from Pulmonary. CXR 03/13 normal. Levsin prn for secretions. Acute renal failure/ hypernatremia/hypokalemia-resolved with IV fluid and water flush via PEG; continue to monitor renal function and electrolytes. Renal US with no hydronephrosis. Appreciate input from nephrology. A-fib: Cardizem started, heart rate better controlled. Continue Lopressor. Echocardiogram completed in November shows preserved EF. Monitor INR daily, continue warfarin. Non-Hodgkin lymphoma: s/p brain biopsy on December 13, by Neurosurgery, Dr. Marin. Pathology consistent with acute infarct without evidence of lymphoma. Seen by Oncology, Dr. Whyte, who has signed off for current admission as no active oncology issues. DM (diabetes mellitus): HgbA1c 7.0. Optimize blood glucose control, increase Levemir daily to 35. Resume sliding scale coverage. Monitor accuchecks and adjust the regimen as needed. Decubitus ulcer stage III: Plastic surgery and Wound care nurse input appreciated and treatment per protocol; repositioning Q2-3H; Interlocking Pavement Installer consult. GI/Nutrition: Continue Nepro at 55 cc/hr per dietitian recommendations. DVT prophylaxis with Coumadin. Discharge Planning Patient was approved for Medicaid, SSI pending. Will need long-term SNF placement. Problem Qualifiers (1) DM (diabetes mellitus): Qualified Code: E11.9 - Type 2 diabetes mellitus without complications Floyd Vinson Mar 24, 2016 13:55
--- NOTE | 2016-03-24 15:30 | HHI.PR ---
Subjective Remarks 60 YO Male with RF, Encephalopathy On Trach collar Cough on suctioning Family at Awake, some tracking of objects noted No new complaint Objective Vital Signs Vital Signs Date Time Temp Pulse Resp B/P Pulse Ox O2 Delivery O2 Flow Rate FiO2 03/24/16 12:35 97.0 99 20 126/80 95 03/24/16 09:02 100 Humidified 6.00 28 03/24/16 08:45 83 03/24/16 08:25 96 T-piece 03/24/16 08:25 96 T-piece 03/24/16 08:17 96.8 91 20 142/81 98 03/24/16 05:25 97.9 108 19 142/84 96 03/24/16 01:33 95 T-piece 03/24/16 01:33 95 T-piece 03/23/16 20:36 98.3 102 18 117/77 96 03/23/16 17:45 97 T-piece 03/23/16 16:00 95.5 89 20 139/80 98 I/O 03/23/16 03/23/16 03/23/16 03/24/16 03/24/16 03/24/16 07:00 15:00 23:00 07:00 15:00 23:00 Intake Total 800 ml Output Total 2950 ml 750 ml 1700 ml Balance -2950 ml -750 ml -1700 ml 800 ml Other 800 ml Output Urine Total 2950 ml 750 ml 1700 ml # Bowel Movements 2 1 Objective Remarks GENERAL: Well-nourished, well-developed patient. SKIN: Warm and dry. HEAD: Normocephalic. EYES: No scleral icterus. No injection or drainage. NECK: Supple, trachea midline. No JVD or lymphadenopathy. trach in place CARDIOVASCULAR: Regular rate and rhythm without murmurs, gallops, or rubs. RESPIRATORY: Breath sounds equal bilaterally. No accessory muscle use. GASTROINTESTINAL: Abdomen soft, non-tender, nondistended. MUSCULOSKELETAL: No cyanosis, or edema. BACK: Nontender without obvious deformity. No CVA tenderness. A/P Assessment and Plan Resp Failure, s/p trach Encephalopathy AF DM PLAN: Trach care TF Cont Cristopher March DW family at . Dr.Wahba joseph FU in AM. Aureliano Grove MD Mar 24, 2016 15:30
[2016-03-24] MEDS: WARFARIN SOD 3 MG TAB PO SCH (17:00)
[2016-03-24] MEDS: PARoxetine HCL SUSP 20 MG/10 ML UDC PEG SCH (18:40)
[2016-03-24] MEDS: INSULIN DETEMIR 100 UNITS/ML VIAL SQ SCH (21:23)
[2016-03-25] VITALS (11 sets, daily range): BP systolic 117–137; BP diastolic 71–84; PULSE 89–106; RESP 18–19; TEMP 97.2–99.1; O2SAT 93–97
[2016-03-25] MEDS: FREE WATER TUBE SCH ×6 (00:14→20:00)
[2016-03-25] MEDS: ACETIC ACID 0.25% SOLN 1000 ML IRR BTL IRRIGATION SCH ×3 (03:32→20:39)
[2016-03-25] MEDS: INSULIN ASPART SUPPLEMENTAL SCALE SQ SCH ×4 (07:00→20:36)
[2016-03-25] MEDS: METOPROLOL TARTRATE 50 MG TAB PO SCH ×3 (07:31→20:39)
[2016-03-25] MEDS: levETIRAcetam 500 MG/5 ML UDC TUBE SCH ×2 (08:07→20:34)
[2016-03-25] MEDS: DILTIAZEM-CD 120 MG CAP ER PO SCH (08:07)
[2016-03-25] MEDS: SENNOSIDES SYRUP 8.8 MG/5 ML CUP TUBE SCH (08:07)
[2016-03-25] MEDS: RANITIDINE HCL SYRUP 150 MG/10 ML UDC PO SCH (08:07)
[2016-03-25] MEDS: NYSTATIN 100,000 U/GM PWD 15 GM BTL TOPICAL SCH ×2 (08:07→20:37)
[2016-03-25] MEDS: HYOSCYAMINE SOLN 0.125 MG/ML 15 ML BTL PEG PRN ×2 (08:11→18:23)
[2016-03-25 08:48] LABS: INTERNATIONAL NORMALIZED RATIO 2.4 RATIO
--- NOTE | 2016-03-25 10:13 | HHI.PR ---
Subjective Remarks Follow-up for CVA. Family at bedside. RT at bedside. Previous brain biopsy pathology discussed with patient's family. Family continues to be concerned about decubitus ulcer. No other concerns at this time. Objective Vitals Vital Signs Date Time Temp Pulse Resp B/P Pulse Ox O2 Delivery O2 Flow Rate FiO2 03/25/16 09:35 106 03/25/16 08:09 100 Humidified 6.00 28 03/25/16 08:00 97.8 89 18 136/84 97 03/25/16 04:52 98.4 102 19 137/81 97 03/25/16 01:53 99.1 92 19 119/74 97 03/24/16 20:03 103 19 130/78 96 03/24/16 18:17 96 T-piece 6.00 21 03/24/16 16:51 96.3 91 20 123/75 96 03/24/16 12:35 97.0 99 20 126/80 95 I/O 03/24/16 03/24/16 03/24/16 03/25/16 03/25/16 03/25/16 07:00 15:00 23:00 07:00 15:00 23:00 Intake Total 800 ml 400 ml 400 ml Output Total 1700 ml 1350 ml 1000 ml Balance -1700 ml -550 ml 400 ml -1000 ml 400 ml Other 800 ml 400 ml 400 ml Output Urine Total 1700 ml 1350 ml 1000 ml # Bowel Movements 0 Objective Remarks GENERAL: Well-developed well-nourished. In no acute distress. SKIN: Warm and dry. Stage IV sacral ulcer. HEENT: Normocephalic. Pupils equal and round. Mucous membranes pink and moist. Trach in place. CARDIOVASCULAR: Irregular but controlled rate and irregular rhythm. No murmur appreciated. RESPIRATORY: No accessory muscle use. Clear to auscultation. Breath sounds equal bilaterally. Rhonchi cleared after suctioning with RT. GASTROINTESTINAL: Abdomen soft, non-tender, nondistended. Bowel sounds x4. PEG in place. MUSCULOSKELETAL: No obvious deformities. No clubbing or cyanosis. No edema. NEUROLOGICAL: Awake and alert. Eyes open, moves eyes on command and turns had some, blinks to answer questions. Locked in. Nonverbal. 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 Significant residual cognitive deficit. Non verbal. Continue Keppra and Coumadin- neurology consulted. Palliative care following. Monitor Keppra level (wnls 03/08). Continue ST, OT, and PT. NPO per ST. Pneumonia with MRSA: patient having fevers 02/27-03/08, Blood cultures on 03/03 grew gram-negative rods in 1 out of 4 bottles, repeat blood cultures 03/06 negative. Sputum culture 03/08 with MRSA. Infectious disease consulted, Bactrim and Flagyl completed 03/14, Vanco completed 03/17. Do not repeat culture unless fevers return, per ID. UTI: Resolved. Urine culture with Klebsiella on 01/31 and repeat on 03/06 negative. Arevalo replaced on 03/07. Acute respiratory failure: Resolved; Secondary to CVA, Status post tracheostomy. Continue pulmonary toilet and neb treatments as needed. Appreciate input from Pulmonary. CXR 03/13 normal. Levsin prn for secretions. Acute renal failure/ hypernatremia/hypokalemia-resolved with IV fluid and water flush via PEG; continue to monitor renal function and electrolytes. Renal US with no hydronephrosis. Appreciate input from nephrology. A-fib: Cardizem started, heart rate better controlled. Continue Lopressor. Echocardiogram completed in November shows preserved EF. Monitor INR daily, continue warfarin. Non-Hodgkin lymphoma: s/p brain biopsy on December 13, by Neurosurgery, Dr. Marin. Pathology consistent with acute infarct without evidence of lymphoma. Seen by Oncology, Dr. Whyte, who has signed off for current admission as no active oncology issues. DM (diabetes mellitus): HgbA1c 7.0. Optimize blood glucose control, increased Levemir daily to 35. Resumed sliding scale coverage. Monitor accuchecks and adjust the regimen as needed. Decubitus ulcer stage III: Plastic surgery and Wound care nurse input appreciated and treatment per protocol; repositioning Q2-3H; Patient Relations Representative consulted. GI/Nutrition: Continue Nepro at 55 cc/hr per dietitian recommendations. DVT prophylaxis with Coumadin. Discharge Planning Patient was approved for Medicaid, SSI pending. Will need long-term SNF placement. Problem Qualifiers (1) DM (diabetes mellitus): Qualified Code: E11.9 - Type 2 diabetes mellitus without complications Floyd Vinson Mar 25, 2016 10:13
[2016-03-25] MEDS: WARFARIN SOD 3 MG TAB PO SCH (16:29)
[2016-03-25] MEDS: RESP: ALBUTEROL 2.5 MG/IPRATROPIUM 0.5 MG NEB (PRN) NEB (17:22)
[2016-03-25] MEDS: PARoxetine HCL SUSP 20 MG/10 ML UDC PEG SCH (18:19)
[2016-03-25] MEDS: INSULIN DETEMIR 100 UNITS/ML VIAL SQ SCH (20:37)
[2016-03-26] VITALS (9 sets, daily range): BP systolic 104–130; BP diastolic 70–82; PULSE 91–103; RESP 19–24; TEMP 96.6–98.6; O2SAT 95–100
[2016-03-26] MEDS: FREE WATER TUBE SCH ×6 (00:30→20:49)
[2016-03-26] MEDS: METOPROLOL TARTRATE 50 MG TAB PO SCH ×3 (05:38→21:38)
[2016-03-26] MEDS: ACETIC ACID 0.25% SOLN 1000 ML IRR BTL IRRIGATION SCH ×3 (05:38→21:38)
[2016-03-26] MEDS: INSULIN ASPART SUPPLEMENTAL SCALE SQ SCH ×4 (05:39→21:37)
[2016-03-26] MEDS: RESP: ALBUTEROL 2.5 MG/IPRATROPIUM 0.5 MG NEB (PRN) NEB ×2 (08:41→14:29)
[2016-03-26] MEDS: levETIRAcetam 500 MG/5 ML UDC TUBE SCH ×2 (08:54→21:38)
[2016-03-26] MEDS: RANITIDINE HCL SYRUP 150 MG/10 ML UDC PO SCH (08:54)
[2016-03-26] MEDS: DILTIAZEM-CD 120 MG CAP ER PO SCH (08:55)
[2016-03-26] MEDS: SENNOSIDES SYRUP 8.8 MG/5 ML CUP TUBE SCH (08:55)
[2016-03-26] MEDS: NYSTATIN 100,000 U/GM PWD 15 GM BTL TOPICAL SCH ×2 (08:55→21:38)
[2016-03-26 09:01] LABS: INTERNATIONAL NORMALIZED RATIO 2.2 RATIO; PROTHROMBIN TIME - PATIENT 24.1 SEC (9.8-11.4)
--- NOTE | 2016-03-26 12:18 | HHI.PR ---
Subjective Remarks Follow up for CVA. Family at bedside. No acute concerns. Patient nonverbal. Vital signs stable. No fevers. Objective Vitals Vital Signs Date Time Temp Pulse Resp B/P Pulse Ox O2 Delivery O2 Flow Rate FiO2 03/26/16 08:53 99 T-piece 5.00 21 03/26/16 08:53 100 T-piece 21 03/26/16 08:04 97.6 92 24 124/82 96 03/26/16 07:54 103 03/26/16 07:29 T-Piece 6.00 21 Humidified 03/26/16 04:04 98.6 99 19 120/70 95 03/26/16 00:04 98.4 91 19 123/81 98 03/25/16 21:31 93 T-piece 03/25/16 21:30 93 Room Air 03/25/16 20:57 97.2 102 18 117/75 97 03/25/16 20:03 T-Piece 6.00 21 Humidified 03/25/16 20:03 97 03/25/16 16:00 97.2 90 18 123/71 97 I/O 03/25/16 03/25/16 03/25/16 03/26/16 03/26/16 03/26/16 07:00 15:00 23:00 07:00 15:00 23:00 Intake Total 800 ml 840 ml 440 ml Output Total 1000 ml 2800 ml 1700 ml Balance -1000 ml -2000 ml 840 ml -1260 ml IV Total 0 ml Tube Feeding 440 ml 440 ml Other 800 ml 400 ml Output Urine Total 1000 ml 2800 ml 1700 ml # Bowel Movements 1 Objective Remarks GENERAL: Well-nourished, well-developed male patient in NAD. SKIN: Warm and dry. HEAD: Normocephalic. Atraumatic. EYES: Pupils equal and round. No scleral icterus. No injection or drainage. Eye glasses in place. NECK: Supple. Tracheostomy in place. CARDIOVASCULAR: Irregular rhythm, mildly tachycardic. S1, S2 noted. No murmur appreciated. RESPIRATORY: No accessory muscle use. Clear to auscultation. Breath sounds equal bilaterally. GASTROINTESTINAL: Abdomen soft, non-tender, nondistended. Normoactive bowel sounds x4. PEG in place. MUSCULOSKELETAL: No obvious deformities. Extremities without clubbing, cyanosis , or edema. 2+ b/l radial and pedal pulses. NEUROLOGICAL: Eyes locked, open. Does not move any extremities. Nonverbal. Closes eyes and moves head on command, however will not track finger. Procedures 01/02/16 PEG placement 01/02/16 tracheostomy Medications and IVs Current Medications Medications (Trade) Dose Ordered Sig/Junior Route Start Time Stop Time Status Last Admin (NS Flush) 2 ml UNSCH PRN IVF 12/21/15 06:00 03/20/16 20:50 (D50w (Vial) Inj) 25 ml UNSCH PRN IV PUSH 12/21/15 13:00 (Glucagon Inj) 1 mg UNSCH PRN OTHER 12/21/15 13:00 (Keppra Liq) 500 mg Q12HR TUBE 12/27/15 21:00 03/26/16 08:54 (Colace Liq) 100 mg Q12HR TUBE 12/27/15 21:00 Hold 01/15/16 09:01 (Tylenol 650 Mg/ 20 ml Liq) 650 mg Q6H PRN TUBE 12/30/15 15:15 03/08/16 00:10 Acetaminophen/ Hydrocodone Bitart 1 tab 1 tab Q6H PRN PO 12/31/15 15:00 03/07/16 17:05 (Coumadin Consult Pharmacy) 0 ml @ 0 mls/hr UNSCH XX 01/04/16 12:30 (Mycostatin Powder) 1 applic Q12HR TOPICAL 01/08/16 21:00 03/26/16 08:55 (Pill Splitter) 1 ea UNSCH PRN OTHER 01/14/16 08:30 (Zantac Liq) 150 mg Q24H PO 01/18/16 09:00 03/26/16 08:54 (Free Water) 400 ml Q4HR TUBE 01/19/16 12:00 03/26/16 11:29 (Acetic Acid 0.25% Irr Btl) 10 ml Q8HR IRRIGATION 02/05/16 16:00 03/26/16 05:38 (Senna Liq) 8.8 mg DAILY TUBE 02/21/16 09:00 03/23/16 08:38 (Ativan Inj) 0.5 mg Q4H PRN IV PUSH 03/07/16 23:00 (Coumadin) 3 mg DAILY@16 PO 03/10/16 16:00 03/25/16 16:29 (Lopressor) 75 mg Q8HR PO 03/10/16 22:00 03/26/16 05:38 (Paxil Liq) 20 mg DAILY@1900 PEG 03/12/16 19:00 03/25/16 18:19 (Cardizem Cd) 120 mg DAILY PO 03/22/16 16:00 03/26/16 08:55 (Levsin Liq) 0.125 mg Q4H PRN PEG 03/22/16 15:15 03/25/16 18:23 (Levemir Inj) 35 units HS SQ 03/24/16 21:00 03/25/16 20:37 Urinary Catheter: Yes Assessment to: Continue Arevalo insert reason: Prolonged Immobilization Date of Insertion: Mar 07, 2016 A/P Problem List: (1) CVA (cerebral vascular accident) Status: Acute (2) A-fib Status: Chronic (3) DM (diabetes mellitus) Status: Chronic Assessment and Plan 60-year-old male with: CVA (cerebral vascular accident): 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 Significant residual cognitive deficit. Non verbal. Continue Keppra and Coumadin- neurology reconsulted. Palliative care following. Monitor Keppra level. Continue ST/OT/PT. NPO per ST. Pneumonia with MRSA: patient having fevers 02/27-03/08, Blood cultures on 03/03 grew gram-negative rods in 1 out of 4 bottles, repeat blood cultures 03/06 negative. Sputum culture 03/08 with MRSA. Infectious disease consulted, Bactrim and Flagyl completed 03/14, Vanco completed 03/17. Do not repeat culture unless fevers return, per ID. UTI: Resolved. Urine culture with Klebsiella on 01/31 and repeat on 03/06 negative. Arevalo replaced on 03/07. Acute respiratory failure: Resolved; Secondary to CVA, S/p tracheostomy. Continue pulmonary toilet and neb treatments as needed. Appreciate input from Pulmonary. CXR 03/13 normal. Levsin prn secretions. Acute renal failure/ hypernatremia/hypokalemia-resolved with IV fluid and water flush via PEG; continue to monitor renal function and electrolytes. Renal US with no hydronephrosis. Appreciate input from nephrology. A-fib: Cardizem started, HR better controlled, continue Lopressor. Echocardiogram completed November2015 shows preserved EF. Monitor INR daily, continue warfarin. Non-Hodgkin lymphoma: s/p brain biopsy on December 13, by Neurosurgery, Dr. Marin. Pathology consistent with acute infarct without evidence of lymphoma. Seen by Oncology, Dr. Whyte, who has signed off for current admission as no active oncology issues DM (diabetes mellitus): HgbA1c 7.0. Continue Levemir at 35u hs, monitor accuchecks, cover with sliding scale- monitor and adjust the regimen as needed. Hypokalemia: Resolved Decubitus ulcer stage III: Plastic surgery and Wound care nurse input appreciated and treatment per protocol; repositioning Q2-3H; Loose Hand Packer consult. GI/Nutrition: Continue Nepro at 55 cc/hr per dietitian recommendations. DVT prophylaxis with Coumadin. Discharge Planning Patient was approved for Medicaid, SSI pending. Will need long-term SNF placement. Problem Qualifiers (1) DM (diabetes mellitus): Qualified Code: E11.9 - Type 2 diabetes mellitus without complications Ernestine Townsend PA-C Mar 26, 2016 12:18
--- NOTE | 2016-03-26 14:57 | HHI.HCPN ---
Reason for visit a. To assist with evaluation and management of symptoms including: dyspnea, encephalopathy, depression b. To assist medical decision maker(s) with: better understanding of current medical conditions; weighing benefits/burdens of medical treatment options; making medical treatment decisions. (Tiara Colin) Subjective/Interval History Pt seen today to follow up with family for requested update, voicemail to palliative number received from Leanne Colon. I attempted to call her back, voicemail left. Pt stable. PT/ST/OT continues to see pt- they note that he is not consistently following commands, answering questions or communicating. At times he does intermittently tracks and appear to blink appropriately to questions though this is inconsistent. No recent diagnostics. Vital signs stable. Afebrile, continues to tolerate 28% T piece O2 to trach. Continues to receive wound care for sacral wound. Case management working with patient and family on financial aspects for discharge placement and planning, patient will require SNF placement due to care needs, at this time does not appear to be a candidate for skilled rehabilitation. Pt seen in room, several family members including mother at bedside. He is awake tracks examiner from right side of the bed to the left side back to the right. When asked yes and no questions for reported blink yes/no response do not get consistent answers. However when asked about pain he seems to repeatedly move eyes up in which is the reported yes answer. Family feels he is having pain. He is unable to further communicating therefore unable to qualify when asked locations for yes/no he is unable to answer. Does not appear tender with abdominal palpation. No other obvious signs of pain such as joint inflammation or areas of erythema. Could be total pain/emotional pain, or related to sacral wound? During exam becomes tearful. Nursing present, going to administer prn pain medication. Does not follow any other commands. Family ask questions if he is getting better, as well as his neurological status doingreview with them that we are still seeing minimal improvement, very slow improvement. They endorse that he is now moving his head slightly side to side. Provided basic general update to them. I have left follow-up voicemail for Leanne De Paza. Awaiting a call back. History brought forward from initial consult by Rita MOCTEZUMA on 01/10/16: This 59-year-old patient was admitted on 12/21/15 via the ED for facial drooping. ED physician notes that patient and patients are poor historians, EMS reported the could not provide good timelines to them. Patient also reported headache, difficulty ambulating. He had known history of recent findings of mass in the brain. During ED course had deterioration of clinical condition and able to protect his airway, unable to follow commands patient was intubated and CT brain obtained. He was admitted for further evaluation and management to the ICU. [facility] was consulted and following patient. Pathology on recent brain biopsy (12/13) still pending. CLINICAL/HOSPITAL COURSE: * CT brain= no focal or acute intracranial hemorrhage. New area decreased density in left occipital lobe suggestive of recent nonhemorrhagic infarct, decreased density in previously noted right occipital lobe has increased in size * Brain MRI = new area of restricted diffusion within left occipital lobe suggesting acute infarct. Interval enlargement of the area of restricted diffusion within right occipital lobe suggesting probable extension of right occipital and started on. Underlying enhancement of right occipital lobe is slightly worse than the previous exam and nonspecific. Biopsy has been performed and results are pending. Tiny focal area of restricted diffusion within right cerebellar hemisphere consistent with probable acute/subacute lacunar infarct. Signal abnormality in the SWI sequence within the right occipital lobe suggesting some hemorrhage in biopsy bed. No midline shift or extra-axial fluid collections. * CXR= no acute cardiopulmonary disease * -Neurology consulted, ordered MRA to look for vertebrobasilar stenosis, echo done last admission notes normal EF with normal valves and normal left atrial size. EEG also ordered. MR venogram ordered. EEG= abnormal study consistent with her encephalopathy. MRV indicated basilar occlusion; neurology notes discussion with family regarding chemical code only, also notes discussion regarding risks associated with the anticoagulates, was discussed with radiologist/INR recommended not helpful to extract basilar clot as this could result in patient's . It was felt the colin was infarcted. Further neurology notes "he could be locked in", is acting as if colin is infarcted. * Oncology known to patient also consulted for non-Hodgkin's lymphoma: Dr Whyte documents that there was no evidence of residual or recurrent disease on CT scans of chest, abdomen, pelvis done in October and November of this year. Pathology was still pending, had been sent to [facility] for second opinion. No acute oncology interventions recommended at that time, will follow. * 12/23 - 12/25 febrile. CPAP trials. Remains on vent off of sedation. Withdrawing to pain. Repeat brain MRI= evolving brainstem stroke. Neurology notes extensive discussion with family, notes discussion the patient is locked in but fully aware, family would like to see help patient does over the next 3 months. 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 Biopsy brain lesion appears consistent with acute infarct no lymphoma. Family desires ongoing aggressive measures, will proceed with tracheostomy. Sputum culture positive sensitive Klebsiella. * 01/01 tracheostomy, PEG tube placement * 01/04 trach collar trials, alternating with T piece. Low-grade fever 100.5. CXR = mild bibasilar atelectasis. Neuro: Spontaneously opening eyes, looking up / down, directionally to commands. * 01/07 still "locked in " , transferred off ICU to regular floor. * 01/08 pulmonology consulted-not CXR clear no evidence of pulmonary infection. He may have some underlying COPD recommends continued aerosol treatments. Further notes long discussion with family at bedside regarding tracheostomy, long-term use of trach until patient able to protect his airway, no further recommendations. Palliative care consulted to assist with clarification of goals of treatment. * (Tiara Colin) Advance Directives Living Will: Never completed Health Care Surrogate: Never completed (Tiara Colin) Objective Vital Signs Date Time Temp Pulse Resp B/P Pulse Ox O2 Delivery O2 Flow Rate FiO2 03/26/16 12:04 96.6 95 22 130/76 100 03/26/16 08:53 99 T-piece 5.00 21 03/26/16 08:53 100 T-piece 21 03/26/16 08:04 97.6 92 24 124/82 96 03/26/16 07:54 103 03/26/16 07:29 T-Piece 6.00 21 Humidified 03/26/16 04:04 98.6 99 19 120/70 95 03/26/16 00:04 98.4 91 19 123/81 98 9/5/16 21:31 93 T-piece 21 03/25/16 21:30 93 Room Air 21 03/25/16 20:57 97.2 102 18 117/75 97 03/25/16 20:03 T-Piece 6.00 21 Humidified 03/25/16 20:03 97 03/25/16 16:00 97.2 90 18 123/71 97 Intake & Output 03/26/16 03/26/16 07:00 19:00 Intake Total 880 ml Output Total 1700 ml Balance -820 ml IV Total 0 ml Tube Feeding 880 ml Output Urine Total 1700 ml # Bowel Movements 1 Physical Exam CONSTITUTIONAL/GENERAL: This is an adequately nourished patient, awake, initially no apparent distress, tearful towards the end of exam. TUBES/LINES/DRAINS: PIV left upper extremity, Arevalo catheter, PEG tube, tracheostomy, SCDs, heel protection boots, on specialty air bed SKIN: No jaundice, rashes, or lesions.No wounds seen anteriorly. Skin temperature appropriate. Not diaphoretic. CARDIOVASCULAR: Regular rate and rhythm without murmurs. No JVD. Peripheral pulses symmetric. No peripheral edema. RESPIRATORY/CHEST: Tracheostomy midline, no symptoms of problems around site. Symmetric, unlabored respirations. T piece, 28% FiO2. clear breath sounds. Breath sounds equal bilaterally. GASTROINTESTINAL: Abdomen soft, peering non-tender, nondistended. No palpable masses. Bowel sounds normoactive.tube feed infusing via PEG. MUSCULOSKELETAL: Extremities without clubbing, cyanosis, or edema. No joint effusion noted. No mottling or clubbing.+ Muscle atrophy to all 4 extremities. NEUROLOGICAL: Awake tracks examiner from left, to right, and back again. Attempted to Doris K yes/no questions with him with reported blink response, I did get a yes to pain however unable to elicit further responses. No movement of extremities, no following of commands. PSYCHIATRIC: Difficult to fully assess due to clinical condition. Tearful towards and exam, ? Pain versus anxiety/distress (Tiara Colin) Diagnostic Tests Laboratory Laboratory Tests Test 03/24/16 03/25/16 03/26/16 05:33 07:40 08:11 Prothrombin Time 24.2 SEC 26.0 SEC 24.1 SEC (9.8-11.4) (9.8-11.4) (9.8-11.4) Prothromb Time International 2.2 RATIO 2.4 RATIO 2.2 RATIO Ratio (Tiara Colin) Imaging Last Impressions Chest X-Ray 03/13/16 0000 Signed Impressions: Service Date/Time: Sunday, March 13, 2016 06:21 - CONCLUSION: Stable chest Wellington West MD Head Magnetic Resonance Angiography 03/05/16 0000 Signed Impressions: Service Date/Time: Saturday, March 05, 2016 09:26 - CONCLUSION: Persistent high-grade subtotal occlusive stenotic lesions in the distal right vertebral artery and proximal basilar artery with significant improvement in flow and recanalization following initial presentation of thrombosis. Stable interstitial circulation without significant stenosis. 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 There is decreasing restricted diffusion and increasing loss of volume characteristic of a subacute to chronic infarct. No evidence of acute infarct, acute hemorrhage mass or edema. Ernesto Kulkarni MD Head CT 01/16/16 0000 Signed Impressions: Service Date/Time: Saturday, January 16, 2016 10:51 - CONCLUSION: No extensive low density in the brainstem colin more prominent in the right the left extending into the right middle cerebellar peduncle consistent with brainstem infarct nonhemorrhagic acute Wellington West MD Abdomen X-Ray 01/14/16 0000 Signed Impressions: Service Date/Time: Thursday, January 14, 2016 10:19 - CONCLUSION: Moderate stool; otherwise, negative. 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 No evidence of carotid stenosis. Glen Zamora MD Head/Brain Mag Res Venography 12/22/15 0000 Signed Impressions: Service Date/Time: Tuesday, December 22, 2015 09:22 - CONCLUSION: Normal MRV. Jonel Jones Jr., MD Procedures * 01/01 tracheostomy, PEG tube placement . 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; EEG indicates encephalopathy, neuro following patient felt to be in a "locked-in "state (2) Non-Hodgkin lymphoma Comment: -In remission status post chemotherapy completed May 2015 (3) Acute respiratory failure Comment: Pulmonology following, medical management (4) A-fib (5) Status post stereotactic brain biopsy (6) Brain lesion Comment: Status post biopsy November 2015; pathology consistent with acute infarct without evidence of lymphoma (7) DM (diabetes mellitus) Symptom Scale: (1) Dysphagia Comment: Status post significant CVA, has had PEG tube placed (2) Dyspnea Comment: Respiratory failure secondary to CVA, status post tracheostomy, pulmonary following (3) Encephalopathy Comment: Significant CVA, "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 Albumin 2.4. (5) Depression Comment: At risk for related to "locked in status", communication difficulties , situational, but would likely benefit from anti-depressant Pertinent Non-Medical Issues * Psychosocial:Mr. Flores is originally from [place]. He moved to the around 35 years ago, first to [place] and later to [place]. He is not legally but remains with his ex-, Leanne. They have been together for 31+ years and have three children together: Leanne, Gerald, and Ginny. Gerald is currently in [facility] for work. Mr. Flores has 2 brothers and 7 sisters. His father is of old age. His mother is alive and was living with the patient. Greatly enjoys his family. Retired. 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 * Spiritual: * Legal:Patient due to clinical condition is currently unable to participate in medical decision making. Not clear if or when he will regain this ability. Family does not believe he has completed advance directives. per [place] Statutes, medical proxy decision making would fall to the majority of adult children, as Mr. Flores is not legally . * Ethical issues impacting care: Important Contacts Leanne, daughter: [phone] Ginny, daughter: [phone] Gerald, son: currently in [facility] for work but has communication with his siblings. Leanne, ex-: [phone] Prognosis This patient has had 20 day hospital course thus far, admitted on 62 for a large brainstem infarct, bilateral occipital infarcts. He has subsequently had ongoing encephalopathy and severe communication limitations, neurology feels he is in a "locked-in "state. He has suffered from respiratory failure likely secondary to significant CVA. Appears he should be able to survive this acute hospitalization, however not clear when or if he will regain ability to communicate, based on current assessments patient will require long-term care placement. He will remain high risk for potential competition/setbacks due to immobile status including infections, DVT etc. . Code Status: Full Code Plan * GOALS: Very aggressive. See family conference component on initial consult for additional detail. Meeting In summary: Initially they had many questions regarding admission and biopsy which occurred in November, they ask about differentials and decision making leading to the biopsy, and have many concerns regarding that clinical course--advised that I could not speak to any of those questions or processes as I was not involved in his care and decision making at that time, recommend them to direct those specific questions to those initial providers which provided those services. Otherwise review of conditions, goals as detailed in "issues discussed". Family expresses that Mr. Flores did remarkably well following his chemotherapy for lymphoma just last year, and that he had been doing fine until recent issue in November. They endorsed that he is a fighter, that he is a very optimistic person, and that they are certain he is "in there "and would want to continue fighting for whatever recovery he might have." They have many questions regarding rehabilitation services and placement as well as financial coverage for these services, advised that case management could assist them with the various applications which already in process, but that any placement would depend on funding, or alternatively [facility]leman placement which is up to any individual institution. They would like to maximize PT/OT/ST ongoing while here in the hospital. They also request courtesy consult of to follow him for pulmonary as he is known to the family through their holiness. * 03/26/16 -voicemail received from Leanne Colon, patient seen to follow-up in provide medical update. I have returned her call and left a return voicemail for her, she was not present during my exam. I did update briefly family present at bedside. * CODE STATUSfull code * Symptoms: == Dysphagia--Status post significant CVA, has had PEG tube placed == Dyspnea --Respiratory failure secondary to CVA, status post tracheostomy, pulmonary following; currently no apparent distress/ CXR bibasilar atelectasis, most recent CXR 02/06, unchanged. == Encephalopathy--Significant CVA, "locked-in" state; follow-up MRI with no significant changes; family endorses patient continues to have limited communication via [place] and eye motion == Malnutrition--Status post PEG tube placement. tolerating TF; having bowel movements == depression/anxiety -- At risk for related to "locked in status", communication difficulties, situational, but would likely benefit from anti- depressant. Family reports tearful at times when they talk to him. prev. started on celexa, then d/c per family request. Has now been on Paxil per family request. Tearful today during exam. ? Pain versus emotional distress. Will cont to evaluate. == Pain: Tearful,? At times blinks/looks up for yes to pain// nursing to administer PRN [place]. Potential sources would include sacral wound, bedbound status. Last dose of Towson 03/07nursing informs that they use sparingly as family has concerns that too much juice will contribute to his lethargy/ decreased alertness. We'll continue to evaluate. * Palliative care will continue to follow during hospital course as condition evolves, to assist patient/decision-maker with understanding of medical conditions, weighing benefits/burdens of treatment options, for clarification of goals of treatment. Additionally will assist with any symptoms of palliative concern (Tiara Colin) Time Spent Total Floor Time (mins): 25 Face to Face Time (mins): 15 >50% Counseling/Coord of Care: Yes (discussed with primary nurse) (Tiara Colin) Attestation To help prompt me to consider important information that might be impacting today's encounter and assessment, information from prior notes written by myself or my colleagues may have been "brought forward" into today's note. My signature on this note, however, is an attestation that I personally performed the exam, history, and/or decision-making noted today, and, unless otherwise indicated, the interactions with patient, family, and staff as well as the review of records all occurred today. I also attest that the listed assessment and stated plan reflect my best clinical judgment today based on the combination of historical information, prior notes, and today's exam/ interactions. When time spent is documented, it refers only to time spent today by the signer, or if indicated, combined time spent today by collaborating physician/nurse practitioner. (Tiara Colin) Collaborating MD Comments Chart reviewed. Case discussed with palliative care CREDIT OPERATIONS PROCESSOR. Above note reviewed and I concur. . (Cal Michelle MD) Tiara Colin Mar 26, 2016 14:57 Cal Michelle MD Apr 14, 2016 13:29
[2016-03-26] MEDS: ACETAMINOPHEN/HYDROcodone 325 MG/5 MG TAB PO PRN (15:47)
[2016-03-26] MEDS: WARFARIN SOD 3 MG TAB PO SCH (15:47)
[2016-03-26] MEDS: PARoxetine HCL SUSP 20 MG/10 ML UDC PEG SCH (18:11)
[2016-03-26] MEDS: INSULIN DETEMIR 100 UNITS/ML VIAL SQ SCH (21:37)
[2016-03-27] VITALS (10 sets, daily range): BP systolic 113–137; BP diastolic 72–81; PULSE 92–117; RESP 19–22; TEMP 96.3–98.3; O2SAT 95–99
[2016-03-27] MEDS: METOPROLOL TARTRATE 50 MG TAB PO SCH ×3 (05:10→21:02)
[2016-03-27] MEDS: ACETIC ACID 0.25% SOLN 1000 ML IRR BTL IRRIGATION SCH ×3 (05:17→20:59)
[2016-03-27] MEDS: FREE WATER TUBE SCH ×6 (05:17→21:03)
[2016-03-27] MEDS: INSULIN ASPART SUPPLEMENTAL SCALE SQ SCH ×4 (05:17→20:32)
[2016-03-27] MEDS: SENNOSIDES SYRUP 8.8 MG/5 ML CUP TUBE SCH (08:06)
[2016-03-27] MEDS: DILTIAZEM-CD 120 MG CAP ER PO SCH (08:06)
[2016-03-27] MEDS: levETIRAcetam 500 MG/5 ML UDC TUBE SCH ×2 (08:06→20:26)
[2016-03-27] MEDS: RANITIDINE HCL SYRUP 150 MG/10 ML UDC PO SCH (08:06)
[2016-03-27] MEDS: NYSTATIN 100,000 U/GM PWD 15 GM BTL TOPICAL SCH ×2 (08:07→20:59)
--- NOTE | 2016-03-27 08:39 | HHI.PR ---
Subjective Remarks No acute events overnight. Family at bedside. Does not appear in acute distress. He is awake at this time, is not following commands. Objective Vitals Vital Signs Date Time Temp Pulse Resp B/P Pulse Ox O2 Delivery O2 Flow Rate FiO2 03/27/16 08:05 97.2 92 22 123/76 97 03/27/16 05:45 98.3 110 19 129/79 98 03/27/16 00:30 97.0 96 20 119/75 98 03/26/16 21:30 96.9 98 22 125/78 96 03/26/16 21:30 T-Piece 6.00 21 Humidified 03/26/16 21:30 92 03/26/16 21:15 98 T-piece 21 03/26/16 16:03 97.0 91 24 104/73 95 03/26/16 12:04 96.6 95 22 130/76 100 03/26/16 08:53 99 T-piece 5.00 03/26/16 08:53 100 T-piece 21 I/O 03/26/16 03/26/16 03/26/16 03/27/16 03/27/16 03/27/16 07:00 15:00 23:00 07:00 15:00 23:00 Intake Total 440 ml 0 ml 0 ml Output Total 1700 ml 1000 ml 600 ml 625 ml Balance -1260 ml -1000 ml -600 ml -625 ml Intake Oral 0 ml 0 ml IV Total 0 ml Tube Feeding 440 ml Output Urine Total 1700 ml 1000 ml 600 ml 625 ml # Bowel Movements 1 1 0 0 Imaging Last Impressions Chest X-Ray 03/13/16 0000 Signed Impressions: Service Date/Time: Sunday, March 13, 2016 06:21 - CONCLUSION: Stable chest Wellington West MD Head Magnetic Resonance Angiography 03/05/16 0000 Signed Impressions: Service Date/Time: Saturday, March 05, 2016 09:26 - CONCLUSION: Persistent high-grade subtotal occlusive stenotic lesions in the distal right vertebral artery and proximal basilar artery with significant improvement in flow and recanalization following initial presentation of thrombosis. Stable interstitial circulation without significant stenosis. 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 There is decreasing restricted diffusion and increasing loss of volume characteristic of a subacute to chronic infarct. No evidence of acute infarct, acute hemorrhage mass or edema. Ernesto Kulkarni MD Head CT 01/16/16 0000 Signed Impressions: Service Date/Time: Saturday, January 16, 2016 10:51 - CONCLUSION: No extensive low density in the brainstem colin more prominent in the right the left extending into the right middle cerebellar peduncle consistent with brainstem infarct nonhemorrhagic acute Wellington West MD Abdomen X-Ray 01/14/16 0000 Signed Impressions: Service Date/Time: Thursday, January 14, 2016 10:19 - CONCLUSION: Moderate stool; otherwise, negative. 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 No evidence of carotid stenosis. Glen Zamora MD Head/Brain Mag Res Venography 12/22/15 0000 Signed Impressions: Service Date/Time: Tuesday, December 22, 2015 09:22 - CONCLUSION: Normal MRV. Jonel Jones Jr., MD Objective Remarks GENERAL: Elderly patient, in no acute distress. SKIN: Warm and dry. No rashes generalized distribution noted. HEAD: Normocephalic. Atraumatic. EYES: No scleral icterus. No injection or drainage. NECK: Supple, trachea midline. No JVD. Tracheostomy in place CARDIOVASCULAR: Regular rate and rhythm without murmurs, gallops, or rubs. RESPIRATORY: Breath sounds equal bilaterally. No accessory muscle use. Trach in place. GASTROINTESTINAL: Abdomen soft, non-tender, nondistended. Normoactive bowel sounds 4. PEG in place. MUSCULOSKELETAL: Extremities without clubbing, cyanosis, or edema. NEUROLOGICAL: Does not spontaneously move extremities, Nonverbal. 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 Significant residual cognitive deficit. -Nonverbal at this time; appears to be in a locked in state. -Continue Keppra and Coumadin- Palliative care following. Monitor Keppra, last level 03/08 was 15.4. INR 2.2 yesterday. - Neurology following, continue Keppra and coumadin. GI/Nutrition: Previous PEG tube exchanged by GI at bedside. Appreciate dietary recommendations; Nepro tube feedings for sodium content to continue at 55 mL, hour. Respiratory failure: Secondary to CVA. Patient is status post tracheostomy. Continue pulmonary toilet and neb treatments as needed. Pulmonary following. - Levsin PRN secretions. Depression: Continue Paxil. A-fib: continue Lopressor, cardizem, warfarin with INR/PT monitoring. Echocardiogram completed in November shows preserved EF. INR is 2.2 today. UTI: Resolved. Urine culture with Klebsiella on 01/31 and repeat on 03/06 negative. Arevalo replaced on 03/07. Coccyx pressure ulcer: Plastic surgery and Wound care nurse input appreciated and treatment per protocol; repositioning Q2-3H; Funeral Service Apprentice consult History of Non-Hodgkin lymphoma: s/p brain biopsy on December 13, by Neurosurgery, Dr. Marin, Pathology consistent with acute infarct without evidence of lymphoma -Seen by Oncology, Dr. Whyte, who has signed off for current admission. DM: Hemoglobin A1c is 7.0. Continue Levemir with sliding scale insulin- monitor and adjust the regimen as needed. Blood sugar 146 this morning. Pneumonia with MRSA: patient having fevers 02/27-03/08, Blood cultures on 03/03 grew gram-negative rods in 1 out of 4 bottles, repeat blood cultures 03/06 negative. Sputum culture 03/08 with MRSA. Infectious disease consulted, Bactrim and Flagyl completed 03/14, Vanco completed 03/17. Do not repeat culture unless fevers return, per ID. DVT prophylaxis: Full anticoagulation with Coumadin. INR therapeutic CBC BMP stable trends. Monitor as needed Patient examined. No changes in management at this time. Care was discussed with patient, family, RN, Dr. Rucker Discharge Planning Patient was approved for Medicaid, SSI pending. Will need long-term SNF placement. Problem Qualifiers (1) DM (diabetes mellitus): Qualified Code: E11.9 - Type 2 diabetes mellitus without complications Georgoudiou,Melly A [employer] CLEAN[employer] Mar 27, 2016 08:39
[2016-03-27 11:06] LABS: INTERNATIONAL NORMALIZED RATIO 2.2 RATIO; PROTHROMBIN TIME - PATIENT 24.1 SEC (9.8-11.4)
[2016-03-27] MEDS: WARFARIN SOD 3 MG TAB PO SCH (15:47)
[2016-03-27] MEDS: PARoxetine HCL SUSP 20 MG/10 ML UDC PEG SCH (18:44)
[2016-03-27] MEDS: INSULIN DETEMIR 100 UNITS/ML VIAL SQ SCH (20:29)
[2016-03-28] VITALS (8 sets, daily range): BP systolic 120–140; BP diastolic 71–79; PULSE 89–126; RESP 20–21; TEMP 96.5–99.4; O2SAT 95–98
[2016-03-28] MEDS: METOPROLOL TARTRATE 50 MG TAB PO SCH ×3 (05:43→21:03)
[2016-03-28] MEDS: FREE WATER TUBE SCH ×6 (05:55→21:19)
[2016-03-28] MEDS: ACETIC ACID 0.25% SOLN 1000 ML IRR BTL IRRIGATION SCH ×3 (05:55→21:20)
[2016-03-28] MEDS: INSULIN ASPART SUPPLEMENTAL SCALE SQ SCH ×4 (06:34→21:03)
[2016-03-28] MEDS: SENNOSIDES SYRUP 8.8 MG/5 ML CUP TUBE SCH (07:44)
[2016-03-28] MEDS: RANITIDINE HCL SYRUP 150 MG/10 ML UDC PO SCH (07:44)
[2016-03-28] MEDS: NYSTATIN 100,000 U/GM PWD 15 GM BTL TOPICAL SCH ×2 (07:44→21:20)
[2016-03-28] MEDS: DILTIAZEM-CD 120 MG CAP ER PO SCH (07:44)
[2016-03-28] MEDS: levETIRAcetam 500 MG/5 ML UDC TUBE SCH ×2 (07:44→21:02)
--- NOTE | 2016-03-28 08:51 | HHI.PR ---
Subjective Remarks Patient seen in room accompanied by family. They report that he had been up all night, with a high heart rate and appeared to be uncomfortable; I recommended to request the as needed pain medicine if he appears to be in pain and the vitals coincide with a painful response. ID to be consulted about patient's low-grade fever. Otherwise does not appear to be in acute distress. Objective Vitals Vital Signs Date Time Temp Pulse Resp B/P Pulse Ox O2 Delivery O2 Flow Rate FiO2 03/28/16 04:00 99.4 126 20 136/75 95 03/28/16 00:00 98.0 97 20 123/79 98 03/27/16 20:47 99 03/27/16 20:30 97 T-Piece 6.00 21 03/27/16 20:21 95 T-piece 21 03/27/16 20:00 98.2 103 20 125/81 98 03/27/16 16:53 97 03/27/16 16:04 97.5 117 22 137/81 99 03/27/16 12:07 96.3 99 22 113/72 97 03/27/16 09:18 98 T-piece 4.00 21 03/27/16 09:18 98 T-piece 4.00 21 I/O 03/27/16 03/27/16 03/27/16 03/28/16 03/28/16 03/28/16 07:00 15:00 23:00 07:00 15:00 23:00 Intake Total 0 ml 2444 ml 400 ml Output Total 625 ml 700 ml 2800 ml Balance -625 ml 1744 ml 400 ml -2800 ml Intake Oral 0 ml Tube Feeding 1644 ml Other 800 ml 400 ml Output Urine Total 625 ml 700 ml 2800 ml # Bowel Movements 0 0 Imaging Last Impressions Chest X-Ray 03/13/16 0000 Signed Impressions: Service Date/Time: Sunday, March 13, 2016 06:21 - CONCLUSION: Stable chest Wellington West MD Head Magnetic Resonance Angiography 03/05/16 0000 Signed Impressions: Service Date/Time: Saturday, March 05, 2016 09:26 - CONCLUSION: Persistent high-grade subtotal occlusive stenotic lesions in the distal right vertebral artery and proximal basilar artery with significant improvement in flow and recanalization following initial presentation of thrombosis. Stable interstitial circulation without significant stenosis. 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 There is decreasing restricted diffusion and increasing loss of volume characteristic of a subacute to chronic infarct. No evidence of acute infarct, acute hemorrhage mass or edema. Ernesto Kulkarni MD Head CT 01/16/16 0000 Signed Impressions: Service Date/Time: Saturday, January 16, 2016 10:51 - CONCLUSION: No extensive low density in the brainstem colin more prominent in the right the left extending into the right middle cerebellar peduncle consistent with brainstem infarct nonhemorrhagic acute Wellington West MD Abdomen X-Ray 01/14/16 0000 Signed Impressions: Service Date/Time: Thursday, January 14, 2016 10:19 - CONCLUSION: Moderate stool; otherwise, negative. 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 No evidence of carotid stenosis. Glen Zamora MD Head/Brain Mag Res Venography 12/22/15 0000 Signed Impressions: Service Date/Time: Tuesday, December 22, 2015 09:22 - CONCLUSION: Normal MRV. Jonel Jones Jr., MD Objective Remarks GENERAL: Elderly patient, in no acute distress. SKIN: Warm and dry. No rashes generalized distribution noted. HEAD: Normocephalic. Atraumatic. EYES: No scleral icterus. No injection or drainage. NECK: Supple, trachea midline. No JVD. Tracheostomy in place CARDIOVASCULAR: Regular rate and rhythm without murmurs, gallops, or rubs. RESPIRATORY: Breath sounds equal bilaterally. No accessory muscle use. Trach in place. GASTROINTESTINAL: Abdomen soft, non-tender, nondistended. Normoactive bowel sounds 4. PEG in place. MUSCULOSKELETAL: Extremities without clubbing, cyanosis, or edema. NEUROLOGICAL: Does not spontaneously move extremities, Nonverbal. 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 Significant residual cognitive deficit. -Nonverbal at this time; appears to be in a locked in state. -Continue Keppra and Coumadin- Palliative care following. Monitor Keppra, last level 03/08 was 15.4. INR 2.2 yesterday. - Neurology following, continue Keppra and coumadin. GI/Nutrition: Previous PEG tube exchanged by GI at bedside. Appreciate dietary recommendations; Nepro tube feedings for sodium content to continue at 55 mL, hour. Respiratory failure: Secondary to CVA. Patient is status post tracheostomy. Continue pulmonary toilet and neb treatments as needed. Pulmonary following. - Levsin PRN secretions. Depression: Continue Paxil. A-fib: continue Lopressor, cardizem, warfarin with INR/PT monitoring. Echocardiogram completed in November shows preserved EF. INR is therapeutic.. UTI: Resolved. Urine culture with Klebsiella on 01/31 and repeat on 03/06 negative. Arevalo replaced on 03/07. Coccyx pressure ulcer: Plastic surgery and Wound care nurse input appreciated and treatment per protocol; repositioning Q2-3H; Manager Garage consult History of Non-Hodgkin lymphoma: s/p brain biopsy on December 13, by Neurosurgery, Dr. Marin, Pathology consistent with acute infarct without evidence of lymphoma -Seen by Oncology, Dr. Whyte, who has signed off for current admission. DM: Hemoglobin A1c is 7.0. Continue Levemir with sliding scale insulin- monitor and adjust the regimen as needed. Blood sugar 168 this morning. Pneumonia with MRSA: patient having fevers 02/27-03/08, Blood cultures on 03/03 grew gram-negative rods in 1 out of 4 bottles, repeat blood cultures 03/06 negative. Sputum culture 03/08 with MRSA. Infectious disease consulted, Bactrim and Flagyl completed 03/14, Vanco completed 03/17. Do not repeat culture unless fevers return, per ID. low-grade fever last night and today MAXIMUM TEMPERATURE 99.4, with tachycardia. Reconsult ID as to obtaining repeat culture. We'll defer to them for management. DVT prophylaxis: Full anticoagulation with Coumadin. INR therapeutic CBC BMP stable trends. Monitor as needed Care was discussed with patient, family, RN, Dr. Rucker Discharge Planning Patient was approved for Medicaid, SSI pending. Will need long-term SNF placement. Problem Qualifiers (1) DM (diabetes mellitus): Qualified Code: E11.9 - Type 2 diabetes mellitus without complications Melly Collins Mar 28, 2016 08:51
[2016-03-28 10:47] LABS: INTERNATIONAL NORMALIZED RATIO 2.2 RATIO
[2016-03-28] MEDS: WARFARIN SOD 3 MG TAB PO SCH (15:46)
[2016-03-28] MEDS: PARoxetine HCL SUSP 20 MG/10 ML UDC PEG SCH (18:07)
[2016-03-28] MEDS: INSULIN DETEMIR 100 UNITS/ML VIAL SQ SCH (21:03)
[2016-03-29] VITALS (7 sets, daily range): BP systolic 110–133; BP diastolic 74–79; PULSE 93–119; RESP 21–24; TEMP 97.1–98.7; O2SAT 92–99
[2016-03-29] MEDS: FREE WATER TUBE SCH ×6 (04:59→20:00)
[2016-03-29] MEDS: METOPROLOL TARTRATE 50 MG TAB PO SCH ×3 (05:09→21:31)
[2016-03-29] MEDS: ACETIC ACID 0.25% SOLN 1000 ML IRR BTL IRRIGATION SCH ×3 (05:09→22:00)
[2016-03-29] MEDS: INSULIN ASPART SUPPLEMENTAL SCALE SQ SCH ×4 (06:08→21:32)
--- NOTE | 2016-03-29 07:54 | HHI.PR ---
Subjective Remarks Patient resting in bed with eyes closed, family at bedside. They report he slept quite well last night did not appear in any pain. Not in acute distress. Objective Vitals Vital Signs Date Time Temp Pulse Resp B/P Pulse Ox O2 Delivery O2 Flow Rate FiO2 03/29/16 00:35 97.8 93 21 122/76 94 03/28/16 20:03 99 03/28/16 20:00 97.9 113 21 140/79 95 03/28/16 16:00 96.5 89 20 124/78 98 03/28/16 12:53 98.2 105 20 133/71 98 03/28/16 11:46 99 03/28/16 08:50 97.1 96 20 120/76 96 I/O 03/28/16 03/28/16 03/28/16 03/29/16 03/29/16 03/29/16 07:00 15:00 23:00 07:00 15:00 23:00 Output Total 2800 ml 2350 ml 600 ml Balance -2800 ml -2350 ml -600 ml Output Urine Total 2800 ml 2350 ml 600 ml # Bowel Movements 1 2 Imaging Last Impressions Chest X-Ray 03/13/16 0000 Signed Impressions: Service Date/Time: Sunday, March 13, 2016 06:21 - CONCLUSION: Stable chest Wellington West MD Head Magnetic Resonance Angiography 03/05/16 0000 Signed Impressions: Service Date/Time: Saturday, March 05, 2016 09:26 - CONCLUSION: Persistent high-grade subtotal occlusive stenotic lesions in the distal right vertebral artery and proximal basilar artery with significant improvement in flow and recanalization following initial presentation of thrombosis. Stable interstitial circulation without significant stenosis. 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 There is decreasing restricted diffusion and increasing loss of volume characteristic of a subacute to chronic infarct. No evidence of acute infarct, acute hemorrhage mass or edema. Ernesto Kulkarni MD Head CT 01/16/16 0000 Signed Impressions: Service Date/Time: Saturday, January 16, 2016 10:51 - CONCLUSION: No extensive low density in the brainstem colin more prominent in the right the left extending into the right middle cerebellar peduncle consistent with brainstem infarct nonhemorrhagic acute Wellington West MD Abdomen X-Ray 01/14/16 0000 Signed Impressions: Service Date/Time: Thursday, January 14, 2016 10:19 - CONCLUSION: Moderate stool; otherwise, negative. 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 No evidence of carotid stenosis. Glen Zamora MD Head/Brain Mag Res Venography 12/22/15 0000 Signed Impressions: Service Date/Time: Tuesday, December 22, 2015 09:22 - CONCLUSION: Normal MRV. Jonel Jones Jr., MD Objective Remarks GENERAL: Elderly patient, in no acute distress. SKIN: Warm and dry. No rashes generalized distribution noted. HEAD: Normocephalic. Atraumatic. EYES: No scleral icterus. No injection or drainage. NECK: Supple, trachea midline. No JVD. Tracheostomy in place CARDIOVASCULAR: Regular rate and rhythm without murmurs, gallops, or rubs. RESPIRATORY: Breath sounds equal bilaterally. No accessory muscle use. Trach in place. GASTROINTESTINAL: Abdomen soft, non-tender, nondistended. Normoactive bowel sounds 4. PEG in place. MUSCULOSKELETAL: Extremities without clubbing, cyanosis, or edema. NEUROLOGICAL: Does not spontaneously move extremities, Nonverbal. ? tracking with eyes. 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 Significant residual cognitive deficit. -Nonverbal at this time; appears to be in a locked in state. -Continue Keppra and Coumadin- Palliative care following. Monitor Keppra, last level 03/08 was 15.4. INR 2.2 yesterday. - Neurology following, continue Keppra and coumadin. GI/Nutrition: Previous PEG tube exchanged by GI at bedside. Appreciate dietary recommendations; Nepro tube feedings for sodium content to continue at 55 mL, hour. Respiratory failure: Secondary to CVA. Patient is status post tracheostomy. Continue pulmonary toilet and neb treatments as needed. Pulmonary following. - Levsin PRN secretions. Depression: Continue Paxil. A-fib: continue Lopressor, cardizem, warfarin with INR/PT monitoring. Echocardiogram completed in November shows preserved EF. INR is therapeutic. UTI: Resolved. Urine culture with Klebsiella on 01/31 and repeat on 03/06 negative. Arevalo replaced on 03/07. Coccyx pressure ulcer: Plastic surgery and Wound care nurse input appreciated and treatment per protocol; repositioning Q2-3H; Portfolio Accountant consult History of Non-Hodgkin lymphoma: s/p brain biopsy on December 13, by Neurosurgery, Dr. Marin, Pathology consistent with acute infarct without evidence of lymphoma -Seen by Oncology, Dr. Whyte, who has signed off for current admission. DM: Hemoglobin A1c is 7.0. Continue Levemir with sliding scale insulin- monitor and adjust the regimen as needed. Blood sugar 155 this morning. Pneumonia with MRSA: patient having fevers 02/27-03/08, Blood cultures on 03/03 grew gram-negative rods in 1 out of 4 bottles, repeat blood cultures 03/06 negative. Sputum culture 03/08 with MRSA. Infectious disease consulted, Bactrim and Flagyl completed 03/14, Vanco completed 03/17. Do not repeat culture unless fevers return, per ID. low-grade fever last night and today MAXIMUM TEMPERATURE 99.4, with tachycardia. Reconsult ID as to obtaining repeat culture. We'll defer to them for management. DVT prophylaxis: Full anticoagulation with Coumadin. INR therapeutic CBC BMP stable trends. Monitor as needed Care was discussed with patient, family, RN, Dr. Au Discharge Planning Patient was approved for Medicaid, SSI pending. Will need long-term SNF placement. Attending Statement patient was seen and examined today. d/w the RN and no acute issues over night. continue current treatment. Problem Qualifiers (1) DM (diabetes mellitus): Qualified Code: E11.9 - Type 2 diabetes mellitus without complications Melly Collins Mar 29, 2016 07:54 Medardo Au MD Mar 29, 2016 11:12
[2016-03-29 07:57] LABS: PROTHROMBIN TIME - PATIENT 21.4 SEC (9.8-11.4)
[2016-03-29] MEDS: levETIRAcetam 500 MG/5 ML UDC TUBE SCH ×2 (12:22→21:30)
[2016-03-29] MEDS: SENNOSIDES SYRUP 8.8 MG/5 ML CUP TUBE SCH (12:22)
[2016-03-29] MEDS: RANITIDINE HCL SYRUP 150 MG/10 ML UDC PO SCH (12:22)
[2016-03-29] MEDS: DILTIAZEM-CD 120 MG CAP ER PO SCH (12:22)
[2016-03-29] MEDS: NYSTATIN 100,000 U/GM PWD 15 GM BTL TOPICAL SCH ×2 (12:23→21:00)
[2016-03-29] MEDS: WARFARIN SOD 3 MG TAB PO SCH (16:31)
[2016-03-29] MEDS: PARoxetine HCL SUSP 20 MG/10 ML UDC PEG SCH (19:00)
[2016-03-29] MEDS: INSULIN DETEMIR 100 UNITS/ML VIAL SQ SCH (21:31)
[2016-03-30] VITALS (9 sets, daily range): BP systolic 98–114; BP diastolic 62–81; PULSE 94–114; RESP 14–21; TEMP 96.3–99.1; O2SAT 94–100
[2016-03-30] MEDS: RESP: ALBUTEROL 2.5 MG/IPRATROPIUM 0.5 MG NEB (PRN) NEB ×2 (02:37→09:02)
[2016-03-30] MEDS: FREE WATER TUBE SCH ×7 (04:00→23:23)
[2016-03-30] MEDS: METOPROLOL TARTRATE 50 MG TAB PO SCH ×3 (06:00→21:07)
[2016-03-30] MEDS: ACETIC ACID 0.25% SOLN 1000 ML IRR BTL IRRIGATION SCH ×3 (06:00→21:07)
[2016-03-30] MEDS: INSULIN ASPART SUPPLEMENTAL SCALE SQ SCH ×4 (06:52→21:00)
[2016-03-30] MEDS: SENNOSIDES SYRUP 8.8 MG/5 ML CUP TUBE SCH (07:56)
[2016-03-30] MEDS: RANITIDINE HCL SYRUP 150 MG/10 ML UDC PO SCH (08:11)
[2016-03-30] MEDS: DILTIAZEM-CD 120 MG CAP ER PO SCH (08:11)
[2016-03-30] MEDS: levETIRAcetam 500 MG/5 ML UDC TUBE SCH ×2 (08:11→21:06)
[2016-03-30] MEDS: NYSTATIN 100,000 U/GM PWD 15 GM BTL TOPICAL SCH ×2 (08:30→21:00)
--- NOTE | 2016-03-30 10:55 | HHI.PR ---
Subjective Remarks Patient resting in bed with eyes closed, easily arousable. Appears to be tracking with eyes. Does not appear to be in acute distress. Objective Vitals Vital Signs Date Time Temp Pulse Resp B/P Pulse Ox O2 Delivery O2 Flow Rate FiO2 03/30/16 10:01 103 03/30/16 09:48 98 T-Piece 6.00 21 Humidified 03/30/16 09:04 100 T-piece 6.00 28 03/30/16 07:40 98.3 105 16 114/70 94 03/30/16 04:00 99.1 112 21 109/81 100 03/30/16 00:00 96.3 94 21 98/62 94 03/29/16 23:00 99 T-piece 21 03/29/16 23:00 99 T-piece 21 03/29/16 20:00 98.5 107 21 127/77 97 03/29/16 16:00 98.7 119 24 125/75 92 03/29/16 12:00 97.1 102 22 133/79 97 I/O 03/29/16 03/29/16 03/29/16 03/30/16 03/30/16 03/30/16 07:00 15:00 23:00 07:00 15:00 23:00 Output Total 600 ml 1200 ml 500 ml 600 ml Balance -600 ml -1200 ml -500 ml -600 ml Output Urine Total 600 ml 1200 ml 500 ml 600 ml # Bowel Movements 2 0 1 Imaging Last Impressions Chest X-Ray 03/13/16 0000 Signed Impressions: Service Date/Time: Sunday, March 13, 2016 06:21 - CONCLUSION: Stable chest Wellington West MD Head Magnetic Resonance Angiography 03/05/16 0000 Signed Impressions: Service Date/Time: Saturday, March 05, 2016 09:26 - CONCLUSION: Persistent high-grade subtotal occlusive stenotic lesions in the distal right vertebral artery and proximal basilar artery with significant improvement in flow and recanalization following initial presentation of thrombosis. Stable interstitial circulation without significant stenosis. 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 There is decreasing restricted diffusion and increasing loss of volume characteristic of a subacute to chronic infarct. No evidence of acute infarct, acute hemorrhage mass or edema. Ernesto Kulkarni MD Head CT 01/16/16 0000 Signed Impressions: Service Date/Time: Saturday, January 16, 2016 10:51 - CONCLUSION: No extensive low density in the brainstem colin more prominent in the right the left extending into the right middle cerebellar peduncle consistent with brainstem infarct nonhemorrhagic acute Wellington West MD Abdomen X-Ray 01/14/16 0000 Signed Impressions: Service Date/Time: Thursday, January 14, 2016 10:19 - CONCLUSION: Moderate stool; otherwise, negative. 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 No evidence of carotid stenosis. Glen Zamora MD Head/Brain Mag Res Venography 12/22/15 0000 Signed Impressions: Service Date/Time: Tuesday, December 22, 2015 09:22 - CONCLUSION: Normal MRV. Jonel Jones Jr., MD Objective Remarks GENERAL: Elderly patient, in no acute distress. SKIN: Warm and dry. No rashes generalized distribution noted. HEAD: Normocephalic. Atraumatic. EYES: No scleral icterus. No injection or drainage. NECK: Supple, trachea midline. No JVD. Tracheostomy in place CARDIOVASCULAR: Regular rate and rhythm without murmurs, gallops, or rubs. RESPIRATORY: Breath sounds equal bilaterally. No accessory muscle use. Trach in place. GASTROINTESTINAL: Abdomen soft, non-tender, nondistended. Normoactive bowel sounds 4. PEG in place. MUSCULOSKELETAL: Extremities without clubbing, cyanosis, or edema. NEUROLOGICAL: Does not spontaneously move extremities, Nonverbal. ? tracking with eyes. 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 Significant residual cognitive deficit. -Nonverbal at this time; appears to be in a locked in state. -Continue Keppra and Coumadin- Palliative care following. Monitor Keppra, last level 03/08 was 15.4. INR 2.2 yesterday. - Neurology following, continue Keppra and coumadin. GI/Nutrition: Previous PEG tube exchanged by GI at bedside. Appreciate dietary recommendations; Nepro tube feedings for sodium content to continue at 55 mL, hour. Patient's daily weight has decreased over the last week from 90-93kg to 86.5kg, dietary reconsulted to assess caloric needs. Respiratory failure: Secondary to CVA. Patient is status post tracheostomy. Continue pulmonary toilet and neb treatments as needed. Pulmonary following. - Levsin PRN secretions. Depression: Continue Paxil. A-fib: continue Lopressor, cardizem, warfarin with INR/PT monitoring. Echocardiogram completed in November shows preserved EF. INR is therapeutic. UTI: Resolved. Urine culture with Klebsiella on 01/31 and repeat on 03/06 negative. Arevalo replaced on 03/07. Coccyx pressure ulcer: Plastic surgery and Wound care nurse input appreciated and treatment per protocol; repositioning Q2-3H; Art Gilder consult History of Non-Hodgkin lymphoma: s/p brain biopsy on December 13, by Neurosurgery, Dr. Marin, Pathology consistent with acute infarct without evidence of lymphoma -Seen by Oncology, Dr. Whyte, who has signed off for current admission. DM: Hemoglobin A1c is 7.0. Continue Levemir with sliding scale insulin- monitor and adjust the regimen as needed. Blood sugar 155 this morning. Pneumonia with MRSA: patient having fevers 02/27-03/08, Blood cultures on 03/03 grew gram-negative rods in 1 out of 4 bottles, repeat blood cultures 03/06 negative. Sputum culture 03/08 with MRSA. Infectious disease consulted, Bactrim and Flagyl completed 03/14, Vanco completed 03/17. Do not repeat culture unless fevers return, per ID. low-grade fever last night and today MAXIMUM TEMPERATURE 99.4, with tachycardia. Reconsult ID as to obtaining repeat culture. We'll defer to them for management. DVT prophylaxis: Full anticoagulation with Coumadin. INR therapeutic CBC BMP stable trends. Monitor as needed Care was discussed with patient, family, RN, Dr. Au Discharge Planning Patient was approved for Medicaid, SSI pending. Will need long-term SNF placement. Attending Statement patient was seen and examined today with family at the bedside. in no distress. continue current treatment. Problem Qualifiers (1) DM (diabetes mellitus): Qualified Code: E11.9 - Type 2 diabetes mellitus without complications Melly Collins Mar 30, 2016 10:55 Medardo Au MD Mar 30, 2016 11:14
[2016-03-30 11:09] LABS: INTERNATIONAL NORMALIZED RATIO 1.9 RATIO; PROTHROMBIN TIME - PATIENT 20.7 SEC (9.8-11.4)
--- NOTE | 2016-03-30 13:56 | HHI.GIFU ---
Subjective Remarks Re-consulted for malfunctioning PEG tube. Nurse reports that it is sluggishly running now, but getting clogged at least once a shift. (Cielo Sorensen) Objective Vitals I&O Vital Signs Date Time Temp Pulse Resp B/P Pulse Ox O2 Delivery O2 Flow Rate FiO2 03/30/16 11:37 98.0 114 14 114/75 97 03/30/16 10:01 103 03/30/16 09:48 98 T-Piece 6.00 21 Humidified 03/30/16 09:04 100 T-piece 6.00 28 03/30/16 07:40 98.3 105 16 114/70 94 03/30/16 04:00 99.1 112 21 109/81 100 03/30/16 00:00 96.3 94 21 98/62 94 03/29/16 23:00 99 T-piece 21 03/29/16 23:00 99 T-piece 21 03/29/16 20:00 98.5 107 21 127/77 97 03/29/16 16:00 98.7 119 24 125/75 92 I/O 03/29/16 03/29/16 03/29/16 03/30/16 03/30/16 03/30/16 07:00 15:00 23:00 07:00 15:00 23:00 Output Total 600 ml 1200 ml 500 ml 600 ml Balance -600 ml -1200 ml -500 ml -600 ml Output Urine Total 600 ml 1200 ml 500 ml 600 ml # Bowel Movements 2 0 1 Laboratory Laboratory Tests Test 03/30/16 10:38 Prothrombin Time 20.7 Prothromb Time International 1.9 Ratio Imaging Last Impressions Chest X-Ray 03/13/16 0000 Signed Impressions: Service Date/Time: Sunday, March 13, 2016 06:21 - CONCLUSION: Stable chest Wellington West MD Head Magnetic Resonance Angiography 03/05/16 0000 Signed Impressions: Service Date/Time: Saturday, March 05, 2016 09:26 - CONCLUSION: Persistent high-grade subtotal occlusive stenotic lesions in the distal right vertebral artery and proximal basilar artery with significant improvement in flow and recanalization following initial presentation of thrombosis. Stable interstitial circulation without significant stenosis. 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 There is decreasing restricted diffusion and increasing loss of volume characteristic of a subacute to chronic infarct. No evidence of acute infarct, acute hemorrhage mass or edema. Ernesto Kulkarni MD Head CT 01/16/16 0000 Signed Impressions: Service Date/Time: Saturday, January 16, 2016 10:51 - CONCLUSION: No extensive low density in the brainstem colin more prominent in the right the left extending into the right middle cerebellar peduncle consistent with brainstem infarct nonhemorrhagic acute Wellington West MD Abdomen X-Ray 01/14/16 0000 Signed Impressions: Service Date/Time: Thursday, January 14, 2016 10:19 - CONCLUSION: Moderate stool; otherwise, negative. 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 No evidence of carotid stenosis. Glen Zamora MD Head/Brain Mag Res Venography 12/22/15 0000 Signed Impressions: Service Date/Time: Tuesday, December 22, 2015 09:22 - CONCLUSION: Normal MRV. Jonel Jones Jr., MD Physical Exam HEENT: Normocephalic; atraumatic; no jaundice. CHEST: Scattered rhonchi. Tracheostomy, to TBar CARDIAC: RRR. ABDOMEN: Soft, round, nondistended, nontender; no hepatosplenomegaly; bowel sounds are present in all four quadrants. PEG tube site without redness, swelling,drainage EXTREMITIES: Generalized edema. SKIN: Normal; no rash; no jaundice. [employer]: Resting with eyes open, does not follow commands (Cielo Sorensen) Assessment and Plan Plan ASSESSMENT: - Dysphagia, FEN. 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 S/P EGD with PEG tube placement (01/01). This was previously replaced on 02/11 for clogged tube without difficulty. S/ P PEG tube exchange with #20 replacement tube without difficulty. PLAN: - S/P PEG tube exchange- tolerated well - Okay to restart TF - GI will sign off, please reconsult as needed - Pt seen and examined by Dr. Oden and myself and this note is written on his behalf (Cieol Sorensen) Physician Comments Plan as above, please notify us if needed. (Vladimir Oden MD) Cielo Sorensen Mar 30, 2016 13:56 Vladimir Oden MD Mar 30, 2016 15:16
[2016-03-30] MEDS: WARFARIN SOD 3 MG TAB PO SCH (16:59)
[2016-03-30] MEDS: PARoxetine HCL SUSP 20 MG/10 ML UDC PEG SCH (18:42)
[2016-03-30] MEDS: INSULIN DETEMIR 100 UNITS/ML VIAL SQ SCH (21:06)
[2016-03-31] VITALS (8 sets, daily range): BP systolic 113–126; BP diastolic 68–78; PULSE 84–104; RESP 18–22; TEMP 97–100.5; O2SAT 94–100
[2016-03-31] MEDS: FREE WATER TUBE SCH ×6 (04:00→23:25)
[2016-03-31] MEDS: ACETIC ACID 0.25% SOLN 1000 ML IRR BTL IRRIGATION SCH ×3 (04:44→21:29)
[2016-03-31] MEDS: METOPROLOL TARTRATE 50 MG TAB PO SCH ×3 (04:44→21:28)
[2016-03-31] MEDS: INSULIN ASPART SUPPLEMENTAL SCALE SQ SCH ×4 (04:44→21:00)
[2016-03-31] MEDS: SENNOSIDES SYRUP 8.8 MG/5 ML CUP TUBE SCH (08:18)
[2016-03-31] MEDS: RANITIDINE HCL SYRUP 150 MG/10 ML UDC PO SCH (08:18)
[2016-03-31] MEDS: levETIRAcetam 500 MG/5 ML UDC TUBE SCH ×2 (08:18→21:28)
[2016-03-31] MEDS: NYSTATIN 100,000 U/GM PWD 15 GM BTL TOPICAL SCH ×2 (08:18→21:00)
[2016-03-31] MEDS: DILTIAZEM-CD 120 MG CAP ER PO SCH (08:18)
--- NOTE | 2016-03-31 08:29 | HHI.PR ---
Subjective Remarks Patient alert, tracking with eyes. No spontaneous movement to extremities. No acute events overnight. Does not appear in acute distress. Objective Vitals Vital Signs Date Time Temp Pulse Resp B/P Pulse Ox O2 Delivery O2 Flow Rate FiO2 03/31/16 04:00 97.0 86 18 117/68 96 03/31/16 00:00 98.8 94 20 120/78 95 03/30/16 21:40 100 T-piece 28 03/30/16 21:40 100 T-piece 28 03/30/16 20:00 99 03/30/16 20:00 99.1 98 18 114/73 100 03/30/16 19:00 T-Piece 6.00 21 Humidified 03/30/16 16:00 98.5 97 16 108/79 95 03/30/16 11:37 98.0 114 14 114/75 97 03/30/16 10:01 103 03/30/16 09:48 98 T-Piece 6.00 21 Humidified 03/30/16 09:04 100 T-piece 6.00 28 I/O 03/30/16 03/30/16 03/30/16 03/31/16 03/31/16 03/31/16 07:00 15:00 23:00 07:00 15:00 23:00 Intake Total 800 ml 676 ml Output Total 600 ml 850 ml 1800 ml Balance -600 ml -850 ml 800 ml -1124 ml Tube Feeding 276 ml Other 800 ml 400 ml Output Urine Total 600 ml 850 ml 1800 ml Bladder Scan Volume Amount 392 ml # Bowel Movements 0 1 Imaging Last Impressions Chest X-Ray 03/13/16 0000 Signed Impressions: Service Date/Time: Sunday, March 13, 2016 06:21 - CONCLUSION: Stable chest Wellington West MD Head Magnetic Resonance Angiography 03/05/16 0000 Signed Impressions: Service Date/Time: Saturday, March 05, 2016 09:26 - CONCLUSION: Persistent high-grade subtotal occlusive stenotic lesions in the distal right vertebral artery and proximal basilar artery with significant improvement in flow and recanalization following initial presentation of thrombosis. Stable interstitial circulation without significant stenosis. 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 There is decreasing restricted diffusion and increasing loss of volume characteristic of a subacute to chronic infarct. No evidence of acute infarct, acute hemorrhage mass or edema. Ernesto Kulkarni MD Head CT 01/16/16 0000 Signed Impressions: Service Date/Time: Saturday, January 16, 2016 10:51 - CONCLUSION: No extensive low density in the brainstem colin more prominent in the right the left extending into the right middle cerebellar peduncle consistent with brainstem infarct nonhemorrhagic acute Wellington West MD Abdomen X-Ray 01/14/16 0000 Signed Impressions: Service Date/Time: Thursday, January 14, 2016 10:19 - CONCLUSION: Moderate stool; otherwise, negative. 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 No evidence of carotid stenosis. Glen Zamora MD Head/Brain Mag Res Venography 12/22/15 0000 Signed Impressions: Service Date/Time: Tuesday, December 22, 2015 09:22 - CONCLUSION: Normal MRV. Jonel Jones Jr., MD Objective Remarks GENERAL: Elderly patient, in no acute distress. SKIN: Warm and dry. No rashes generalized distribution noted. HEAD: Normocephalic. Atraumatic. EYES: No scleral icterus. No injection or drainage. NECK: Supple, trachea midline. No JVD. Tracheostomy in place CARDIOVASCULAR: Regular rate and rhythm without murmurs, gallops, or rubs. RESPIRATORY: Breath sounds equal bilaterally. No accessory muscle use. Trach in place. GASTROINTESTINAL: Abdomen soft, non-tender, nondistended. Normoactive bowel sounds 4. PEG in place. MUSCULOSKELETAL: Extremities without clubbing, cyanosis, or edema. NEUROLOGICAL: Does not spontaneously move extremities, Nonverbal. ? tracking with eyes. 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 Significant residual cognitive deficit. -Nonverbal at this time; appears to be in a locked in state. -Continue Keppra and Coumadin- Palliative care following. Monitor Keppra, last level 03/08 was 15.4. INR 1.9 yesterday. - Neurology following, continue Keppra and coumadin. GI/Nutrition: Previous PEG tube exchanged by GI at bedside 03/30/2016. Awaiting dietary recommendations; Nepro tube feedings for sodium content to continue at 55 mL, hour. Patient's daily weight has decreased over the last week from 90- 93kg to 86.5kg, dietary reconsulted to assess caloric needs. Respiratory failure: Secondary to CVA. Patient is status post tracheostomy. Continue pulmonary toilet and neb treatments as needed. Pulmonary following. - Levsin PRN secretions. Depression: Continue Paxil. A-fib: continue Lopressor, cardizem, warfarin with INR/PT monitoring. Echocardiogram completed in November shows preserved EF. Pharmacy assisting with Coumadin dosing to keep therapeutic. UTI: Resolved. Urine culture with Klebsiella on 01/31 and repeat on 03/06 negative. Arevalo replaced on 03/07. Coccyx pressure ulcer: Plastic surgery and Wound care nurse input appreciated and treatment per protocol; repositioning Q2-3H; Kitchen [employer]er consult History of Non-Hodgkin lymphoma: s/p brain biopsy on December 13, by Neurosurgery, Dr. Marin, Pathology consistent with acute infarct without evidence of lymphoma -Seen by Oncology, Dr. Whyte, who has signed off for current admission. DM: Hemoglobin A1c is 7.0. Continue Levemir with sliding scale insulin- monitor and adjust the regimen as needed. Blood sugar 159 this morning. Pneumonia with MRSA: patient having fevers 02/27-03/08, Blood cultures on 03/03 grew gram-negative rods in 1 out of 4 bottles, repeat blood cultures 03/06 negative. Sputum culture 03/08 with MRSA. Infectious disease consulted, Bactrim and Flagyl completed 03/14, Vanco completed 03/17. Do not repeat culture unless fevers return, per ID. low-grade fever last night and today MAXIMUM TEMPERATURE 99.4, with tachycardia. Reconsult ID as to obtaining repeat culture. We'll defer to them for management. DVT prophylaxis: Full anticoagulation with Coumadin. INR therapeutic CBC BMP stable trends. CBC BMP pending. Care was discussed with patient, family, RN, Dr. Au Discharge Planning Patient was approved for Medicaid, SSI pending. Will need long-term SNF placement. Attending Statement patient was seen and examined. in no acute distress. no change clinically. continue current treatment. Problem Qualifiers (1) DM (diabetes mellitus): Qualified Code: E11.9 - Type 2 diabetes mellitus without complications Melly Collins Mar 31, 2016 08:29 Medardo Au MD Mar 31, 2016 09:36
[2016-03-31 09:54] LABS: INTERNATIONAL NORMALIZED RATIO 2.1 RATIO; PROTHROMBIN TIME - PATIENT 22.7 SEC (9.8-11.4)
[2016-03-31 09:56] LABS: AUTOMATED NEUTROPHIL # 3.2 TH/MM3 (1.8-7.7); BASOPHIL # 0.1 TH/MM3 (0-0.2); EOSINOPHIL # 0.2 TH/MM3 (0-0.4); EOSINOPHIL % 4.1 % (0.0-4.0); HEMATOCRIT 29.4 % (39.0-51.0); LYMPH % 25.1 % (9.0-44.0); LYMPHOCYTE # 1.3 TH/MM3 (1.0-4.8); MEAN CELL VOLUME 74.4 FL (80.0-100.0); MEAN CORPUSCULAR HEMOGLOBIN 23.8 PG (27.0-34.0); MEAN CORPUSCULAR HGB CONC 31.9 % (32.0-36.0); NEUT % 60.8 % (16.0-70.0); PLATELET COUNT 221 TH/MM3 (150-450); RED BLOOD COUNT 3.95 MIL/MM3 (4.50-5.90); RED CELL DISTRIBUTION WIDTH 19.9 % (11.6-17.2); WHITE BLOOD COUNT 5.3 TH/MM3 (4.0-11.0)
[2016-03-31 10:01] LABS: HEMO FLAGS AUTO DIFF
[2016-03-31 10:19] LABS: BICARBONATE 29.6 MEQ/L (21.0-32.0); POTASSIUM 3.2 MEQ/L (3.5-5.1)
[2016-03-31 11:22] LABS: SCAN/DIFF AUTO DIFF CONFIRMED
[2016-03-31] MEDS: WARFARIN SOD 3 MG TAB PO SCH (16:26)
[2016-03-31] MEDS: PARoxetine HCL SUSP 20 MG/10 ML UDC PEG SCH (18:24)
[2016-03-31] MEDS: INSULIN DETEMIR 100 UNITS/ML VIAL SQ SCH (21:28)
[2016-03-31] MEDS: ACETAMINOPHEN 650 MG/20.3 ML UDC TUBE PRN (23:16)
[2016-04-01] VITALS (10 sets, daily range): BP systolic 101–125; BP diastolic 67–83; PULSE 72–100; RESP 17–24; TEMP 96.7–98.9; O2SAT 97–100
[2016-04-01] MEDS: FREE WATER TUBE SCH ×5 (04:00→21:27)
[2016-04-01] MEDS: ACETIC ACID 0.25% SOLN 1000 ML IRR BTL IRRIGATION SCH ×3 (04:48→21:41)
[2016-04-01] MEDS: INSULIN ASPART SUPPLEMENTAL SCALE SQ SCH ×4 (06:15→21:27)
[2016-04-01] MEDS: METOPROLOL TARTRATE 50 MG TAB PO SCH ×3 (06:16→21:27)
[2016-04-01] MEDS: SENNOSIDES SYRUP 8.8 MG/5 ML CUP TUBE SCH (09:00)
[2016-04-01] MEDS: NYSTATIN 100,000 U/GM PWD 15 GM BTL TOPICAL SCH ×2 (09:00→21:00)
[2016-04-01] MEDS: DILTIAZEM-CD 120 MG CAP ER PO SCH (10:16)
[2016-04-01] MEDS: levETIRAcetam 500 MG/5 ML UDC TUBE SCH ×2 (10:16→21:27)
[2016-04-01] MEDS: RANITIDINE HCL SYRUP 150 MG/10 ML UDC PO SCH (10:16)
--- NOTE | 2016-04-01 11:34 | HHI.PR ---
Subjective Remarks in no acute distress. clinically no change. d/w the RN and no acute issues over night. Objective Vitals Vital Signs Date Time Temp Pulse Resp B/P Pulse Ox O2 Delivery O2 Flow Rate FiO2 04/01/16 10:20 99 T-piece 28 04/01/16 09:14 96.7 87 18 121/83 98 04/01/16 04:00 97.0 99 18 106/76 97 04/01/16 00:30 99 T-piece 5.00 28 04/01/16 00:30 99 T-piece 5.00 28 04/01/16 00:00 98.2 72 18 101/75 03/31/16 20:00 98 03/31/16 20:00 100 T-Piece 6.00 21 Humidified 03/31/16 20:00 100.5 98 18 113/74 97 03/31/16 17:50 97.8 95 22 113/72 99 03/31/16 12:46 84 03/31/16 12:00 97.8 104 22 118/70 96 I/O 03/31/16 03/31/16 03/31/16 04/01/16 04/01/16 04/01/16 07:00 15:00 23:00 07:00 15:00 23:00 Intake Total 676 ml 1200 ml Output Total 1800 ml Balance -1124 ml 1200 ml Tube Feeding 276 ml 1200 ml Other 400 ml Output Urine Total 1800 ml Bladder Scan Volume Amount 392 ml # Bowel Movements 1 Result Diagram: 03/31/16 0838 03/31/16 0838 Imaging Last Impressions Chest X-Ray 03/13/16 0000 Signed Impressions: Service Date/Time: Sunday, March 13, 2016 06:21 - CONCLUSION: Stable chest Wellington West MD Head Magnetic Resonance Angiography 03/05/16 0000 Signed Impressions: Service Date/Time: Saturday, March 05, 2016 09:26 - CONCLUSION: Persistent high-grade subtotal occlusive stenotic lesions in the distal right vertebral artery and proximal basilar artery with significant improvement in flow and recanalization following initial presentation of thrombosis. Stable interstitial circulation without significant stenosis. 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 There is decreasing restricted diffusion and increasing loss of volume characteristic of a subacute to chronic infarct. No evidence of acute infarct, acute hemorrhage mass or edema. Ernesto Kulkarni MD Head CT 01/16/16 0000 Signed Impressions: Service Date/Time: Saturday, January 16, 2016 10:51 - CONCLUSION: No extensive low density in the brainstem colin more prominent in the right the left extending into the right middle cerebellar peduncle consistent with brainstem infarct nonhemorrhagic acute Wellington West MD Abdomen X-Ray 01/14/16 0000 Signed Impressions: Service Date/Time: Thursday, January 14, 2016 10:19 - CONCLUSION: Moderate stool; otherwise, negative. 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 No evidence of carotid stenosis. Glen Zamora MD Head/Brain Mag Res Venography 12/22/15 0000 Signed Impressions: Service Date/Time: Tuesday, December 22, 2015 09:22 - CONCLUSION: Normal MRV. Jonel Jones Jr., MD Objective Remarks GENERAL: on Trach- in no apparent distress. Neck; trach in place CARDIOVASCULAR: Regular rate and regular rhythm without murmurs, gallops, or rubs. RESPIRATORY: Clear to auscultation. Breath sounds equal bilaterally. No wheezes , rales, or rhonchi. GASTROINTESTINAL: Abdomen soft, non-tender,distended. hypoactive bowel sounds-PEG in place MUSCULOSKELETAL: Extremities without clubbing, cyanosis, or edema. NEURO: opens the eyes to verbal stimuli Procedures 01/02/16 PEG placement 01/02/16 tracheostomy Medications and IVs Current Medications IV Flush (NS Flush) 2 ml UNSCH PRN IVF FLUSH AFTER USING IV ACCESS Last administered on 03/20/16at 20:50; Start 12/21/15 at 06:00 Ondansetron HCl (Zofran Inj) 4 mg STK-MED ONCE .ROUTE ; Start 12/21/15 at 06:22; Stop 12/21/15 at 06:23; Status DC Ondansetron HCl (Zofran Inj) 4 mg ONCE ONCE IV PUSH Last administered on 6/2/ 16at 06:43; Start 12/21/15 at 06:30; Stop 12/21/15 at 06:31; Status DC Diltiazem HCl 20 mg 20 mg ONCE ONCE IV Last administered on 12/21/15 06:42; Start 12/21/15 at 06:30; Stop 12/21/15 at 06:31; Status DC Diltiazem HCl/ Sodium Chloride (Cardizem Inj/NS Inj) 125 ml @ 0 mls/hr TITRATE IV Last administered on 12/21/15at 06:47; Start 12/21/15 at 06:30; Stop 12/21/15 at 13:00; Status DC Acetaminophen (Tylenol) 650 mg ONCE ONCE PO ; Start 12/21/15 at 06:45; Stop 12/20 at 06:46; Status DC Lorazepam (Ativan Inj) 1 mg ONCE ONCE IV PUSH Last administered on 12/21/15 07 :22; Start 12/21/15 at 07:15; Stop 12/21/15 at 07:16; Status DC Etomidate (Amidate Inj) 40 mg STK-MED ONCE .ROUTE Last administered on 08:17; Start 12/21/15 at 07:37; Stop 12/21/15 at 07:38; Status DC Succinylcholine Chloride 200 mg 200 mg STK-MED ONCE .ROUTE Last administered on 12/21/15 08:18; Start 12/21/15 at 07:37; Stop 12/21/15 at 07:38; Status DC Propofol (Diprivan 1000 Mg/100ml Inj) 100 ml @ As Directed STK-MED ONCE .ROUTE Last administered on 12/21/15at 08:19; Start 12/21/15 at 07:46; Stop 12/21/15 at 07:47; Status DC Propofol (Diprivan 1000 Mg/100ml Inj) search Sets for Drip. NOW PRN IV SEDATION Last administered on 12/22/15 06:25; Start 12/21/15 at 08:30; Stop 12/28 at 15:43; Status DC Gadodiamide (Omniscan Pf Inj) 18 ml STK-MED ONCE IV Last administered on at 10:11; Start 12/21/15 at 10:11; Stop 12/21/15 at 10:12; Status DC Pantoprazole Sodium (Protonix Inj) 40 mg DAILY IV Last administered on at 07:39; Start 12/21/15 at 13:00; Stop 01/03/16 at 10:10; Status DC Albuterol/ Ipratropium (Duoneb Neb) 1 ampule Q6HR NEB INH Last administered on 12/25/15at 07:51; Start 12/21/15 at 13:00; Stop 12/25/15 at 13:00; Status DC Miscellaneous Information 1 [id number] Last administered on 12/21/15at 13:00; Start 12/21/15 at 13:00; Stop 01/12/16 at 11:47; Status DC Chlorhexidine Gluconate (Chlorhexidine 2% Cloth) 3 pack Taper DAILY@04 TOP Last administered on 01/11/16at 04:10; Start 12/22/15 at 04:00; Stop 01/12/16 at 11:47; Status DC Chlorhexidine Gluconate 3 pack 3 pack UNSCH PRN TOP HYGIENIC CARE; Start at 13:00; Stop 01/12/16 at 11:47; Status DC Sodium Chloride (NS 1000 ml Inj) 1,000 ml @ 75 mls/hr [id number] IV Last administered on 12/22/15at 17:00; Start 12/21/15 at 13:00; Stop 12/22/15 at 19:01; Status DC Dextrose (D50w (Vial) Inj) 25 ml UNSCH PRN IV PUSH HYPOGLYCEMIA-SEE COMMENTS; Start 12/21/15 at 13:00 Glucagon (Glucagon Inj) 1 mg UNSCH PRN OTHER HYPOGLYCEMIA-SEE COMMENTS; Start 12/21/15 at 13:00 Insulin Human Regular (NovoLIN R SUPPLEMENTAL SCALE) 1 Q6H SQ Last administered on 01/04/16at 06:31; Start 12/21/15 at 13:00; Stop 01/04/16 at 10:05 ; Status DC Levetriacetam (Keppra) 500 mg Q12HR PO Last administered on 12/27/15at 09:00; Start 12/21/15 at 13:45; Stop 12/27/15 at 09:44; Status DC Heparin Sodium (Porcine) (Heparin Inj) 5,000 units BID SQ Last administered on 12/22/15at 20:52; Start 12/21/15 at 21:00; Stop 12/23/15 at 08:32; Status DC Warfarin Sodium (Coumadin) 7.5 mg ONCE ONCE PO Last administered on 12/21/15at 21:43; Start 12/21/15 at 21:00; Stop 12/21/15 at 21:01; Status DC Warfarin Sodium (Coumadin) 5 mg DAILY@16 PO Last administered on 12/23/15at 16:00 ; Start 12/22/15 at 16:00; Stop 12/26/15 at 09:29; Status DC Patient Medication Teaching (Coumadin Booklet) 1 ONCE ONCE XX Last administered on 12/21/15at 20:15; Start 12/21/15 at 20:15; Stop 12/21/15 at 20:16; Status DC Chlorhexidine Gluconate (Peridex 0.12% Liq) 15 ml BID@08,20 MT Last administered on 01/12/16at 08:00; Start 12/22/15 at 20:00; Stop 01/12/16 at 11:47 ; Status DC Gadodiamide 20 ml 20 ml STK-MED ONCE IV Last administered on 12/22/15at 09:55; Start 12/22/15 at 09:55; Stop 12/22/15 at 09:56; Status DC Pharmacy Profile Note ml @ 0 mls/hr UNSCH OTHER ; Start 12/22/15 at 11:00; Stop 12/22/15 at 19:43; Status DC Sodium Chloride 1,000 ml @ 50 mls/hr Q20H IV Last administered on 12/24/15at 20: 02; Start 12/22/15 at 18:44; Stop 12/25/15 at 11:52; Status DC Pharmacy Profile Note (Coumadin Consult Pharmacy) 0 ml @ 0 mls/hr UNSCH OTHER ; Start 12/22/15 at 19:45; Stop 01/04/16 at 12:25; Status DC Acetaminophen 650 mg 650 mg Q6H PRN PO TEMP > 100 Last administered on at 13:24; Start 12/23/15 at 02:45; Stop 12/30/15 at 15:04; Status DC Potassium Chloride 100 ml @ 50 mls/hr Q2H PRN IV For Potassium 2.8 - 3.2 mEq/L ; Start 12/23/15 at 08:30; Stop 01/09/16 at 11:14; Status DC Potassium Chloride (KCl 20 Meq Premix Inj) 100 ml @ 50 mls/hr Q2H PRN IV For Potassium 2.8 - 3.2 mEq/L; Start 12/23/15 at 08:30; Stop 01/09/16 at 11:14; Status DC Potassium Chloride 40 meq 40 meq UNSCH PRN PO/TUBE For Potassium 3.3 - 3.5 mEq/ L; Start 12/23/15 at 08:30; Stop 01/09/16 at 11:14; Status DC Potassium Chloride 100 ml @ 25 mls/hr UNSCH PRN IV For Potassium 3.3 - 3.5 mEq /L; Start 12/23/15 at 08:30; Stop 01/09/16 at 11:14; Status DC Potassium Chloride 100 ml @ 50 mls/hr Q2H PRN IV For Potassium 3.3 - 3.5 mEq/L ; Start 12/23/15 at 08:30; Stop 01/09/16 at 11:14; Status DC Magnesium Sulfate/ Sodium Chloride (Magnesium Sulfate Inj/NS Inj) 100 ml @ 50 mls/hr UNSCH PRN IV For Magnesium 0.9 - 1.1 mg/dL; Start 12/23/15 at 08:30; Stop 01/09/16 at 11:14; Status DC Magnesium Oxide 800 mg 800 mg UNSCH PRN PO For Magnesium 1.2 - 1.6 mg/dL; Start 12/23/15 at 08:30; Stop 01/09/16 at 11:14; Status DC Magnesium Sulfate/ Sodium Chloride (Magnesium Sulfate Inj/NS Inj) 100 ml @ 50 mls/hr UNSCH PRN IV For Magnesium 1.2 - 1.6 mg/dL; Start 12/23/15 at 08:30; Stop 01/09/16 at 11:14; Status DC Potassium Phosphate 2000 mg 2,000 mg Q4H PRN PO For Phosphorus < 2.5 mg/dL; Start 12/23/15 at 08:30; Stop 01/09/16 at 11:14; Status DC Sodium Phosphate/ Sodium Chloride (Sodium Phosphate Inj/NS 250 ml Inj) 250 ml @ 42 mls/hr UNSCH PRN IV For Phosphorus < 2.5 mg/dL; Start 12/23/15 at 08:30; Stop 01/09/16 at 11:14; Status DC Potassium Chloride (KCl 40 Meq/30 ml Liq) 40 meq UNSCH PRN PO/TUBE SEE LABEL COMMENTS; Start 12/23/15 at 08:30; Stop 01/09/16 at 11:14; Status DC Potassium Phosphate 2000 mg 2,000 mg UNSCH PRN PO/TUBE SEE LABEL COMMENTS; Start 12/23/15 at 08:30; Stop 01/09/16 at 11:14; Status DC Potassium Phosphate 30 mmol/ Sodium Chloride 260 ml @ 42 mls/hr UNSCH PRN IV SEE LABEL COMMENTS; Start 12/23/15 at 08:30; Stop 01/09/16 at 11:14; Status DC Sodium Chloride 1,000 ml @ 75 mls/hr [id number] IV ; Start 12/23/15 at 08:30; Stop 12/23/15 at 08:30; Status DC Piperacillin Sod/ Tazobactam Sod 50 ml @ 100 mls/hr Q6H IV Last administered on 12/30/15at 10:02; Start 12/23/15 at 10:00; Stop 12/30/15 at 14:50; Status DC Vancomycin HCl/ Sodium Chloride (Vancomycin Inj/ NS 250 ml Inj) 250 ml @ 250 mls/hr Q12H IV Last administered on 12/29/15at 09:01; Start 12/24/15 at 08:45; Stop 12/29/15 at 15:33; Status DC Warfarin Sodium (Coumadin) 4 mg DAILY@16 PO Last administered on 12/28/15at 16:00 ; Start 12/26/15 at 16:00; Stop 01/04/16 at 12:25; Status DC Levetriacetam (Keppra Liq) 500 mg Q12HR TUBE Last administered on 04/01/16at 10 :16; Start 12/27/15 at 21:00 Docusate Sodium (Colace Liq) 100 mg Q12HR TUBE Last administered on 01/15/16at 09:01; Start 12/27/15 at 21:00; Status Hold Sennosides (Senna Liq) 8.8 mg DAILY TUBE Last administered on 01/15/16at 09:01 ; Start 12/27/15 at 17:00; Stop 01/15/16 at 20:37; Status DC Bisacodyl (Dulcolax Supp) 10 mg ONCE ONCE RECTAL ; Start 12/27/15 at 16:15; Stop 12/27/15 at 16:15; Status DC Albuterol/ Ipratropium (Duoneb Neb) 1 ampule Q4HR NEB PRN NEB RESPIRATORY DISTRESS Last administered on 12/29/15at 12:17; Start 12/27/15 at 22:00; Stop at 08:16; Status DC Bisacodyl (Dulcolax Supp) 10 mg ONCE ONCE RECTAL ; Start 12/28/15 at 12:00; Stop 12/28/15 at 12:01; Status DC Sodium Chloride (Sodium Chloride) 1 gm BID TUBE Last administered on 12/29/15at 09:02; Start 12/28/15 at 21:00; Stop 12/29/15 at 15:43; Status DC Lactulose (Lactulose Liq) 30 ml DAILY TUBE Last administered on 12/29/15at 09:02 ; Start 12/28/15 at 20:30; Stop 12/29/15 at 15:43; Status DC Levofloxacin (Levaquin) 750 mg DAILY@16 TUBE ; Start 12/29/15 at 16:00; Stop 05/05 at 16:00; Status DC Sodium Chloride (Sodium Chloride) 1 gm DAILY TUBE Last administered on at 07:29; Start 12/30/15 at 09:00; Stop 12/31/15 at 14:08; Status DC Water 200 ml 200 ml Q6HR G-TUBE Last administered on 12/31/15at 04:19; Start 06/05 at 14:45; Stop 12/31/15 at 07:31; Status DC Ceftriaxone Sodium/Sodium Chloride (Rocephin Inj/NS Inj) 100 ml @ 200 mls/hr Q12H IV Last administered on 01/03/16at 02:47; Start 12/30/15 at 15:00; Stop at 10:09; Status DC Acetaminophen (Tylenol 650 Mg/ 20 ml Liq) 650 mg Q6H PRN TUBE TEMP >100.4 Last administered on 03/31/16at 23:16; Start 12/30/15 at 15:15 Lactobacillus Acidophilus (Lactinex Pkt) 1 gm BID TUBE Last administered on at 09:00; Start 12/30/15 at 21:00; Stop 02/10/16 at 14:30; Status DC Enoxaparin Sodium (Lovenox Inj) 90 mg Q12H SQ Last administered on 01/01/16at 21 :57; Start 12/31/15 at 08:00; Stop 01/03/16 at 10:33; Status DC Water (Free Water) 100 ml Q12H G-TUBE ; Start 12/31/15 at 18:00; Stop 12/31/15 at 18:00; Status DC Acetaminophen/ Hydrocodone Bitart ([place] 5-325 Mg) 1 tab Q6H PRN PO PAIN Last administered on 03/26/16at 15:47; Start 12/31/15 at 15:00 Fentanyl Citrate (Sublimaze Inj) 25 mcg Q1H PRN IV PUSH BREAKTHROUGH PAIN; Start 12/31/15 at 15:00; Stop 03/06/16 at 10:03; Status DC Water (Free Water) 200 ml Q8H G-TUBE Last administered on 01/01/16at 17:55; Start 12/31/15 at 18:00; Stop 01/02/16 at 09:56; Status DC Sodium Chloride (Sodium Chloride) 1 gm BID TUBE Last administered on 01/03/16at 07:39; Start 12/31/15 at 21:00; Stop 01/03/16 at 09:08; Status DC Miscellaneous Information Hold Anticoagulation after midni... ONCE ONCE OTHER ; Start 01/01/16 at 10:15; Stop 01/01/16 at 10:29; Status DC Sodium Chloride (NS 1000 ml Inj) 1,000 ml @ 50 mls/hr Q20H IV Last administered on 01/02/16at 12:26; Start 01/01/16 at 18:00; Stop 01/03/16 at 10:07 ; Status DC Midazolam HCl (Versed Inj) 5 mg STK-MED ONCE .ROUTE ; Start 01/02/16 at 12:47; Stop 01/02/16 at 12:48; Status DC Vecuronium [place] (Norcuron 10 Mg Inj) 10 mg STK-MED ONCE .ROUTE ; Start at 12:47; Stop 01/02/16 at 12:48; Status DC Fentanyl Citrate (Sublimaze Inj) 250 mcg ONCE ONCE IV PUSH Last administered on 01/02/16at 15:00; Start 01/02/16 at 15:00; Stop 01/02/16 at 15:01; Status DC Midazolam HCl (Versed Inj) 10 mg ONCE ONCE IV PUSH Last administered on at 15:00; Start 01/02/16 at 15:00; Stop 01/02/16 at 15:01; Status DC Rocuronium [place] (Zemuron Inj) 100 mg BOLUS ONCE IV Last administered on at 15:00; Start 01/02/16 at 15:00; Stop 01/02/16 at 15:01; Status DC Ketamine HCl (Ketalar Inj) 500 mg STK-MED ONCE .ROUTE ; Start 01/02/16 at 14:30 ; Stop 01/02/16 at 14:31; Status DC Propofol 230 mg 230 mg STK-MED ONCE IV ; Start 01/02/16 at 16:51; Stop 01/02/16 at 16:52; Status DC Sodium Chloride (NS 1000 ml Inj) 1,000 ml @ 0 mls/hr Q0M IV ; Start 01/03/16 at 10:15; Stop 01/17/16 at 17:30; Status DC Ranitidine HCl (Zantac Liq) 150 mg Q12HR PO Last administered on 01/17/16at 07: 39; Start 01/04/16 at 09:00; Stop 01/17/16 at 15:23; Status DC Enoxaparin Sodium 90 mg 90 mg Q12HR SQ Last administered on 01/11/16at 10:01; Start 01/04/16 at 09:00; Stop 01/11/16 at 12:35; Status DC Sodium Chloride (NS 500 ml Inj) 500 ml @ 0 mls/hr BOLUS ONCE IV Last administered on 01/03/16at 22:57; Start 01/03/16 at 23:00; Stop 01/03/16 at 23:01 ; Status DC Insulin Aspart (NovoLOG SUPPLEMENTAL SCALE) 1 Q6HR SQ Last administered on at 12:00; Start 01/04/16 at 12:00; Stop 03/24/16 at 13:58; Status DC Potassium Chloride (KCl 40 Meq/30 ml Liq) 40 meq Q4H NG Last administered on at 16:21; Start 01/04/16 at 13:00; Stop 01/04/16 at 17:01; Status DC Warfarin Sodium 5 mg 5 mg DAILY@1600 PO Last administered on 01/09/16at 17:21; Start 01/04/16 at 16:00; Stop 01/10/16 at 10:06; Status DC Pharmacy Profile Note (Coumadin Consult Pharmacy) 0 ml @ 0 mls/hr UNSCH XX ; Start 01/04/16 at 12:30 Insulin Detemir (Levemir Inj) 10 units Q12HR SQ Last administered on 01/05/16at 08:00; Start 01/04/16 at 21:00; Stop 01/05/16 at 08:42; Status DC Insulin Detemir (Levemir Inj) 5 units NOW ONCE SQ Last administered on at 13:28; Start 01/04/16 at 12:45; Stop 01/04/16 at 12:46; Status DC Albuterol/ Ipratropium (Duoneb Neb) 1 ampule Q4HR NEB PRN NEB dyspnea Last administered on 03/30/16at 09:02; Start 01/07/16 at 08:15 Warfarin Sodium (Coumadin) 7.5 mg ONCE ONCE PO Last administered on 01/07/16at 16:40; Start 01/07/16 at 16:00; Stop 01/07/16 at 16:01; Status DC Nystatin (Mycostatin Powder) 1 applic Q12HR TOPICAL Last administered on at 09:00; Start 01/08/16 at 21:00 Ipratropium [place] (Atrovent Neb) 0.5 mg TID NEB NEB Last administered on 02/20at 13:17; Start 01/08/16 at 20:00; Stop 02/21/16 at 17:52; Status DC Warfarin Sodium (Coumadin) 5 mg DAILY@1600 PO Last administered on 01/11/16at 14 :26; Start 01/11/16 at 16:00; Stop 01/12/16 at 09:45; Status DC Warfarin Sodium (Coumadin) 6 mg ONCE PO Last administered on 01/10/16at 17:10; Start 01/10/16 at 16:00; Stop 01/10/16 at 21:00; Status DC Metoprolol Tartrate (Lopressor) 50 mg Q12HR GT Last administered on 01/11/16at 10:02; Start 01/10/16 at 11:00; Stop 01/11/16 at 12:30; Status DC Metoprolol Tartrate (Lopressor) 50 mg TID GT Last administered on 01/14/16at 08: 24; Start 01/11/16 at 13:00; Stop 01/14/16 at 08:28; Status DC Insulin Detemir (Levemir Inj) 10 units HS SQ Last administered on 01/11/16at 22: 23; Start 01/11/16 at 21:00; Stop 01/12/16 at 11:47; Status DC Warfarin Sodium (Coumadin) 4 mg DAILY@16 PO ; Start 01/12/16 at 16:00; Stop at 16:00; Status DC Insulin Detemir (Levemir Inj) 20 units HS SQ Last administered on 01/13/16at 20: 26; Start 01/12/16 at 21:00; Stop 01/14/16 at 08:28; Status DC Warfarin Sodium (Coumadin) 2 mg DAILY@16 PO Last administered on 01/13/16at 17: 05; Start 01/12/16 at 16:00; Stop 01/14/16 at 11:23; Status DC Insulin Detemir (Levemir Inj) 22 units HS SQ Last administered on 01/14/16at 21: 37; Start 01/14/16 at 21:00; Stop 01/15/16 at 10:06; Status DC Metoprolol Tartrate (Lopressor) 75 mg TID GT Last administered on 03/10/16at 17: 43; Start 01/14/16 at 09:00; Stop 03/10/16 at 21:13; Status DC Miscellaneous (Pill Splitter) 1 ea UNSCH PRN OTHER SEE LABEL COMMENTS; Start at 08:30 Warfarin Sodium (Coumadin) 4 mg DAILY@1600 PO Last administered on 01/21/16at 16: 51; Start 01/14/16 at 16:00; Stop 01/23/16 at 09:29; Status DC Patient Medication Teaching (Coumadin Booklet) 1 ONCE ONCE XX ; Start 01/14/16 at 16:00; Stop 01/14/16 at 16:01; Status DC Insulin Detemir (Levemir Inj) 24 units HS SQ Last administered on 03/04/16at 21: 09; Start 01/15/16 at 21:00; Stop 03/05/16 at 11:17; Status DC Citalopram Hydrobromide (CeleXA) 20 mg DAILY PEG Last administered on at 08:01; Start 01/16/16 at 09:00; Stop 01/16/16 at 09:41; Status DC Sennosides (Senna Liq) 8.8 mg BID TUBE Last administered on 02/20/16at 08:32; Start 01/15/16 at 21:00; Stop 02/20/16 at 16:13; Status DC Gadodiamide 18 ml 18 ml STK-MED ONCE IV ; Start 01/16/16 at 20:40; Stop at 20:41; Status DC Sodium Chloride (NS 1000 ml Inj) 1,000 ml @ 125 mls/hr Q8H IV Last administered on 01/17/16at 15:11; Start 01/17/16 at 15:00; Stop 01/17/16 at 17:31 ; Status DC Ranitidine HCl 150 mg 150 mg Q24H PO Last administered on 04/01/16at 10:16; Start 01/18/16 at 09:00 Sodium Chloride 1,000 ml @ 75 mls/hr [id number] IV Last administered on at 05:22; Start 01/17/16 at 18:00; Stop 01/18/16 at 09:28; Status DC Sodium Chloride/ Sterile Water (Sodium Chloride 23.4% Inj/Sterile Water For Inj ) 1,009.625 ml @ 60 mls/hr [id number] IV Last administered on 01/21/16at 22:46; Start 01/18/16 at 11:00; Stop 01/22/16 at 10:09; Status DC Potassium Chloride (KCl) 40 meq ONCE ONCE PO ; Start 01/18/16 at 09:30; Stop at 09:31; Status DC Potassium Chloride (KCl 40 Meq/30 ml Liq) 40 meq ONCE ONCE TUBE Last administered on 01/18/16at 11:08; Start 01/18/16 at 11:00; Stop 01/18/16 at 11:01 ; Status DC Water (Free Water) 300 ml Q4HR TUBE Last administered on 01/19/16at 08:00; Start 01/18/16 at 12:00; Stop 01/19/16 at 10:43; Status DC Water (Free Water) 400 ml Q4HR TUBE Last administered on 04/01/16at 08:00; Start 01/19/16 at 12:00 Potassium Chloride (KCl 40 Meq/30 ml Liq) 40 meq ONCE ONCE NG Last administered on 01/19/16at 11:41; Start 01/19/16 at 11:00; Stop 01/19/16 at 11:01; Status DC Potassium Chloride 60 meq 60 meq ONCE ONCE PO/TUBE Last administered on at 13:30; Start 01/21/16 at 11:15; Stop 01/21/16 at 11:27; Status DC Sodium Chloride (1/2 NS 1000 ml Inj) 1,000 ml @ 30 mls/hr Q24H IV Last administered on 02/06/16at 11:26; Start 01/22/16 at 11:00; Stop 02/07/16 at 14:49 ; Status DC Warfarin Sodium (Coumadin) 3 mg DAILY@16 PO Last administered on 01/23/16at 17:19 ; Start 01/23/16 at 16:00; Stop 01/24/16 at 14:05; Status DC Warfarin Sodium (Coumadin) 3 mg DAILY@16 PO Last administered on 01/25/16at 15:59 ; Start 01/25/16 at 16:00; Stop 01/26/16 at 15:04; Status DC Warfarin Sodium (Coumadin) 4 mg ONCE@1600 ONCE PO Last administered on at 16:55; Start 01/24/16 at 16:00; Stop 01/24/16 at 16:01; Status DC Warfarin Sodium (Coumadin) 3 mg DAILY@16 PO ; Start 01/27/16 at 16:00; Stop at 16:00; Status DC Warfarin Sodium (Coumadin) 4 mg ONCE@1600 ONCE PO Last administered on at 16:52; Start 01/26/16 at 16:00; Stop 01/26/16 at 16:01; Status DC Potassium Chloride (KCl 40 Meq/30 ml Liq) 80 meq ONCE ONCE PO Last administered on 01/27/16at 07:45; Start 01/27/16 at 07:45; Stop 01/27/16 at 08:10; Status DC Warfarin Sodium (Coumadin) 4 mg DAILY@16 PO Last administered on 02/02/16at 17: 22; Start 01/27/16 at 16:00; Stop 02/03/16 at 11:37; Status DC Acetic Acid (Acetic Acid 0.25% Irr Btl) 10 ml Q8HR IRRIGATION Last administered on 02/05/16at 06:00; Start 01/28/16 at 22:00; Stop 02/05/16 at 15:51 ; Status DC Warfarin Sodium 3 mg 3 mg DAILY@1600 PO Last administered on 02/11/16at 17:34; Start 02/03/16 at 16:00; Stop 02/12/16 at 12:45; Status DC Ceftriaxone Sodium/Sodium Chloride (Rocephin Inj/NS Inj) 100 ml @ 200 mls/hr Q24H IV Last administered on 02/10/16at 05:23; Start 02/05/16 at 06:30; Stop at 14:32; Status DC Acetic Acid (Acetic Acid 0.25% Irr Btl) 10 ml Q8HR IRRIGATION ; Start 02/05/16 at 16:00; Status Cancel Acetic Acid (Acetic Acid 0.25% Irr Btl) 10 ml Q8HR IRRIGATION Last administered on 04/01/16at 04:48; Start 02/05/16 at 16:00 Lactobacillus Acidophilus (Lactinex) 1 tab Q12HR PO Last administered on at 08:25; Start 02/10/16 at 21:00; Stop 02/12/16 at 16:05; Status DC Warfarin Sodium (Coumadin) 4 mg DAILY@1600 PO Last administered on 02/14/16at 15 :56; Start 02/12/16 at 16:00; Stop 02/15/16 at 10:17; Status DC Paroxetine HCl (Paxil Liq) 20 mg DAILY PEG Last administered on 02/25/16at 07:33 ; Start 02/16/16 at 09:00; Stop 02/25/16 at 10:36; Status DC Warfarin Sodium (Coumadin) 3 mg DAILY@1600 PO Last administered on 02/19/16at 16: 42; Start 02/15/16 at 16:00; Stop 02/20/16 at 08:50; Status DC Warfarin Sodium (Coumadin) 4 mg DAILY@16 PO Last administered on 02/21/16at 15:54 ; Start 02/20/16 at 16:00; Stop 02/22/16 at 08:46; Status DC Sennosides (Senna Liq) 8.8 mg DAILY TUBE Last administered on 03/31/16at 08:18 ; Start 02/21/16 at 09:00 Albuterol Sulfate (Albuterol Neb) 2.5 mg QID NEB INH Last administered on at 19:51; Start 02/21/16 at 20:00; Stop 02/25/16 at 20:00; Status DC Acetylcysteine (Mucomyst 10% Neb) 1 ml QID NEB NEB Last administered on at 16:32; Start 02/21/16 at 20:00; Stop 02/23/16 at 16:01; Status DC Warfarin Sodium (Coumadin) 3 mg DAILY@16 PO Last administered on 02/22/16at 15:59 ; Start 02/22/16 at 16:00; Stop 02/23/16 at 08:56; Status DC Warfarin Sodium (Coumadin) 3 mg DAILY@16 PO Last administered on 02/28/16at 16: 17; Start 02/24/16 at 16:00; Stop 02/29/16 at 10:04; Status DC Warfarin Sodium (Coumadin) 2 mg ONCE PO Last administered on 02/23/16at 16:22; Start 02/23/16 at 16:00; Stop 02/23/16 at 21:00; Status DC Paroxetine HCl (Paxil Liq) 20 mg DAILY@1900 PEG Last administered on 03/08/16at 18:11; Start 02/26/16 at 19:00; Stop 03/09/16 at 11:31; Status DC Warfarin Sodium (Coumadin) 3 mg DAILY@16 PO Last administered on 03/06/16at 16: 22; Start 03/01/16 at 16:00; Stop 03/09/16 at 10:30; Status DC Warfarin Sodium (Coumadin) 1 mg ONCE PO Last administered on 02/29/16at 17:28; Start 02/29/16 at 16:00; Stop 02/29/16 at 21:00; Status DC Insulin Detemir (Levemir Inj) 27 units HS SQ Last administered on 03/05/16at 20: 25; Start 03/05/16 at 21:00; Stop 03/06/16 at 10:03; Status DC Patient Medication Teaching (Coumadin Booklet) 1 ONCE ONCE XX Last administered on 03/05/16at 16:00; Start 03/05/16 at 16:00; Stop 03/05/16 at 16:01 ; Status DC Insulin Detemir (Levemir Inj) 30 units HS SQ Last administered on 03/21/16at 22: 32; Start 03/06/16 at 21:00; Stop 03/22/16 at 14:48; Status DC Trimethoprim/ Sulfamethoxazole (Bactrim 800-160 Mg/20 ml Liq) 20 ml Q12HR PO Last administered on 03/14/16at 08:01; Start 03/07/16 at 11:15; Stop 03/14/16 at 11:14; Status DC Lorazepam (Ativan Inj) 0.5 mg Q4H PRN IV PUSH seizures; Start 03/07/16 at 23:00 Metronidazole (Flagyl) 500 mg Q8H PO Last administered on 03/14/16at 15:51; Start 03/08/16 at 17:00; Stop 03/14/16 at 23:00; Status DC Warfarin Sodium (Coumadin) 2 mg DAILY@16 PO Last administered on 03/09/16at 17: 20; Start 03/09/16 at 16:00; Stop 03/10/16 at 10:33; Status DC Paroxetine HCl (Paxil) 20 mg DAILY@1900 PEG Last administered on 03/11/16at 17: 55; Start 03/09/16 at 19:00; Stop 03/12/16 at 08:31; Status DC Warfarin Sodium 3 mg 3 mg DAILY@16 PO Last administered on 03/31/16at 16:26; Start 03/10/16 at 16:00 Pharmacy Profile Note 0 ml @ 0 mls/hr UNSCH OTHER ; Start 03/10/16 at 14:15; Stop 03/18/16 at 11:33; Status DC Vancomycin HCl/ Sodium Chloride (Vancomycin Inj/ NS 500 ml Inj) 530 ml @ 265 mls/hr Q12H IV Last administered on 03/17/16at 16:26; Start 03/10/16 at 16:00; Stop 03/17/16 at 23:00; Status DC Miscellaneous Information SPECIFIC LAB TO BE ELISA... ONCE ONCE XX Last administered on 03/12/16at 04:45; Start 03/12/16 at 03:45; Stop 03/12/16 at 03:46 ; Status DC Metoprolol Tartrate (Lopressor) 75 mg Q8HR PO Last administered on 04/01/16at 06 :16; Start 03/10/16 at 22:00 Paroxetine HCl (Paxil Liq) 20 mg DAILY@1900 PEG Last administered on 03/31/16at 18:24; Start 03/12/16 at 19:00 Warfarin Sodium (Coumadin) 1 mg ONCE PO Last administered on 03/21/16at 16:24; Start 03/21/16 at 16:00; Stop 03/21/16 at 21:00; Status DC Warfarin Sodium (Coumadin) 1 mg ONCE PO Last administered on 03/22/16at 17:46; Start 03/22/16 at 16:00; Stop 03/22/16 at 21:00; Status DC Insulin Detemir (Levemir Inj) 32 units HS SQ Last administered on 03/22/16at 20: 18; Start 03/22/16 at 21:00; Stop 03/23/16 at 13:35; Status DC Diltiazem HCl (Cardizem Cd) 120 mg DAILY PO Last administered on 04/01/16at 10: 16; Start 03/22/16 at 16:00 Hyoscyamine Sulfate (Levsin Liq) 0.125 mg Q4H PRN PEG INCREASED SECRETIONS Last administered on 03/25/16at 18:23; Start 03/22/16 at 15:15 Warfarin Sodium (Coumadin) 2 mg ONCE ONCE PO Last administered on 03/23/16at 17: 26; Start 03/23/16 at 16:00; Stop 03/23/16 at 16:01; Status DC Insulin Detemir (Levemir Inj) 34 units HS SQ Last administered on 03/23/16at 20: 01; Start 03/23/16 at 21:00; Stop 03/24/16 at 13:53; Status DC Insulin Detemir (Levemir Inj) 35 units HS SQ Last administered on 03/31/16at 21: 28; Start 03/24/16 at 21:00 Insulin Aspart (NovoLOG SUPPLEMENTAL SCALE) 1 ACHS SLIDING SCALE SQ Last administered on 04/01/16at 06:15; Start 03/24/16 at 16:00 Warfarin Sodium (Coumadin) 1 mg ONCE ONCE PO Last administered on 03/30/16at 16 :59; Start 03/30/16 at 16:00; Stop 03/30/16 at 16:01; Status DC Potassium Chloride (KCl 40 Meq/30 ml Liq) 40 meq ONCE ONCE NG Last administered on 03/31/16at 21:28; Start 03/31/16 at 18:30; Stop 03/31/16 at 18:31 ; Status DC Date of Insertion: Mar 07, 2016 A/P Assessment and Plan A/P 60-year-old male with: CVA (cerebral vascular accident): 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 Significant residual cognitive deficit. -Nonverbal at this time; appears to be in a locked in state. -Continue Keppra and Coumadin- Palliative care following. Monitor Keppra, last level 03/08 was 15.4. INR 1.9 yesterday. - Neurology following, continue Keppra and coumadin. GI/Nutrition: Previous PEG tube exchanged by GI at bedside 03/30/2016. Awaiting dietary recommendations; Nepro tube feedings for sodium content to continue at 55 mL, hour. dietary reconsulted to assess caloric needs. hypokalemia; replaced.will monitor. Respiratory failure: Secondary to CVA. Patient is status post tracheostomy. Continue pulmonary toilet and neb treatments as needed. Pulmonary following. - Levsin PRN secretions. Depression: Continue Paxil. A-fib: continue Lopressor, cardizem, warfarin with INR/PT monitoring. Echocardiogram completed in November shows preserved EF. Pharmacy assisting with Coumadin dosing to keep therapeutic. UTI: Resolved. Urine culture with Klebsiella on 01/31 and repeat on 03/06 negative. Arevalo replaced on 03/07. Coccyx pressure ulcer: Plastic surgery and Wound care nurse input appreciated and treatment per protocol; repositioning Q2-3H; Lab Engineer consult History of Non-Hodgkin lymphoma: s/p brain biopsy on December 13, by Neurosurgery, Dr. Marin, Pathology consistent with acute infarct without evidence of lymphoma -Seen by Oncology, Dr. Whyte, who has signed off for current admission. DM: Hemoglobin A1c is 7.0. Continue Levemir with sliding scale insulin- monitor and adjust the regimen as needed. Blood sugar 159 this morning. Pneumonia with MRSA: patient having fevers 02/27-03/08, Blood cultures on 03/03 grew gram-negative rods in 1 out of 4 bottles, repeat blood cultures 03/06 negative. Sputum culture 03/08 with MRSA. Infectious disease consulted, Bactrim and Flagyl completed 03/14, Vanco completed 03/17. Do not repeat culture unless fevers return, per ID. low-grade fever last night and today MAXIMUM TEMPERATURE 99.4, with tachycardia. Reconsult ID as to obtaining repeat culture. We'll defer to them for management. DVT prophylaxis: Full anticoagulation with Coumadin. INR therapeutic Discharge Planning dc planning to SNF-no funding- SSI pending. Medardo Au MD Apr 01, 2016 11:34
[2016-04-01 11:39] LABS: INTERNATIONAL NORMALIZED RATIO 2.5 RATIO; PROTHROMBIN TIME - PATIENT 27.1 SEC (9.8-11.4)
[2016-04-01] MEDS: WARFARIN SOD 3 MG TAB PO SCH (16:53)
[2016-04-01] MEDS: PARoxetine HCL SUSP 20 MG/10 ML UDC PEG SCH (16:53)
[2016-04-01] MEDS: INSULIN DETEMIR 100 UNITS/ML VIAL SQ SCH (21:26)
[2016-04-02] VITALS (10 sets, daily range): BP systolic 100–129; BP diastolic 60–79; PULSE 83–103; RESP 15–24; TEMP 98.3–99.3; O2SAT 96–100
[2016-04-02] MEDS: FREE WATER TUBE SCH ×6 (05:37→22:18)
[2016-04-02] MEDS: METOPROLOL TARTRATE 50 MG TAB PO SCH ×3 (05:39→22:17)
[2016-04-02] MEDS: INSULIN ASPART SUPPLEMENTAL SCALE SQ SCH ×4 (05:40→22:17)
[2016-04-02] MEDS: ACETIC ACID 0.25% SOLN 1000 ML IRR BTL IRRIGATION SCH ×3 (05:50→22:18)
[2016-04-02] MEDS: SENNOSIDES SYRUP 8.8 MG/5 ML CUP TUBE SCH (07:10)
[2016-04-02] MEDS: DILTIAZEM-CD 120 MG CAP ER PO SCH (07:24)
[2016-04-02] MEDS: RANITIDINE HCL SYRUP 150 MG/10 ML UDC PO SCH (07:24)
[2016-04-02] MEDS: levETIRAcetam 500 MG/5 ML UDC TUBE SCH ×2 (07:24→22:17)
[2016-04-02] MEDS: NYSTATIN 100,000 U/GM PWD 15 GM BTL TOPICAL SCH ×2 (07:34→21:00)
--- NOTE | 2016-04-02 09:06 | HHI.PR ---
Subjective Remarks Patient seen resting in bed quietly. Does not appear in acute distress. Family at bedside. No acute concerns at this time. Objective Vitals Vital Signs Date Time Temp Pulse Resp B/P Pulse Ox O2 Delivery O2 Flow Rate FiO2 04/02/16 08:20 99.0 91 20 110/64 98 04/02/16 08:03 99 T-piece 5.00 28 04/02/16 08:03 99 T-piece 5.00 28 04/02/16 04:00 98.9 99 24 105/62 100 04/02/16 00:00 98.4 83 24 129/79 99 04/01/16 20:39 100 T-piece 6.00 28 04/01/16 20:39 100 T-piece 6.00 28 04/01/16 20:00 98.4 98 24 125/67 98 04/01/16 17:39 98.9 90 17 118/68 98 04/01/16 13:47 98.2 98 17 116/74 97 04/01/16 10:20 99 T-piece 04/01/16 09:14 96.7 87 18 121/83 98 I/O 04/01/16 04/01/16 04/01/16 04/02/16 04/02/16 04/02/16 07:00 15:00 23:00 07:00 15:00 23:00 Intake Total 1200 ml 542 ml 400 ml Output Total 650 ml 600 ml Balance 1200 ml -108 ml -600 ml 400 ml Intake Oral 0 ml IV Total 400 ml Tube Feeding 1200 ml 542 ml Output Urine Total 650 ml 600 ml # Bowel Movements 1 0 Result Diagram: 03/31/1683703/31/16837 Objective Remarks GENERAL: Elderly patient, in no acute distress. SKIN: Warm and dry. No rashes generalized distribution noted. HEAD: Normocephalic. Atraumatic. EYES: No scleral icterus. No injection or drainage. NECK: Supple, trachea midline. No JVD. Tracheostomy in place CARDIOVASCULAR: Regular rate and rhythm without murmurs, gallops, or rubs. RESPIRATORY: Breath sounds equal bilaterally. No accessory muscle use. Trach in place. GASTROINTESTINAL: Abdomen soft, non-tender, nondistended. Normoactive bowel sounds 4. PEG in place. MUSCULOSKELETAL: Extremities without clubbing, cyanosis, or edema. NEUROLOGICAL: Does not spontaneously move extremities, Nonverbal. ? tracking with eyes. 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 Significant residual cognitive deficit. -Nonverbal at this time; appears to be in a locked in state. -Continue Keppra and Coumadin- Palliative care following. Monitor Keppra, last level 03/08 was 15.4. INR 1.9 yesterday. - Neurology following, continue Keppra and coumadin. GI/Nutrition: Previous PEG tube exchanged by GI at bedside 03/30/2016. Awaiting dietary recommendations; Nepro tube feedings for sodium content to continue at 55 mL, hour. Patient's daily weight has decreased over the last week from 90- 93kg to 86.5kg, dietary reconsulted to assess caloric needs. Respiratory failure: Secondary to CVA. Patient is status post tracheostomy. Continue pulmonary toilet and neb treatments as needed. Pulmonary following. - Levsin PRN secretions. Depression: Continue Paxil. A-fib: continue Lopressor, cardizem, warfarin with INR/PT monitoring. Echocardiogram completed in November shows preserved EF. Pharmacy assisting with Coumadin dosing to keep therapeutic. UTI: Resolved. Urine culture with Klebsiella on 01/31 and repeat on 03/06 negative. Arevalo replaced on 03/07. Coccyx pressure ulcer: Plastic surgery and Wound care nurse input appreciated and treatment per protocol; repositioning Q2-3H; Skein Winding Operator consult History of Non-Hodgkin lymphoma: s/p brain biopsy on December 13, by Neurosurgery, Dr. Marin, Pathology consistent with acute infarct without evidence of lymphoma -Seen by Oncology, Dr. Whyte, who has signed off for current admission. DM: Hemoglobin A1c is 7.0. Continue Levemir with sliding scale insulin- monitor and adjust the regimen as needed. Blood sugar 159 this morning. Pneumonia with MRSA: patient having fevers 02/27-03/08, Blood cultures on 03/03 grew gram-negative rods in 1 out of 4 bottles, repeat blood cultures 03/06 negative. Sputum culture 03/08 with MRSA. Infectious disease consulted, Bactrim and Flagyl completed 03/14, Vanco completed 03/17. Do not repeat culture unless fevers return, per ID. DVT prophylaxis: Full anticoagulation with Coumadin. INR therapeutic CBC BMP as needed. Care was discussed with patient, family, RN, Dr. Au Discharge Planning Patient was approved for Medicaid, SSI pending. Will need long-term SNF placement. Problem Qualifiers (1) DM (diabetes mellitus): Qualified Code: E11.9 - Type 2 diabetes mellitus without complications Melly Collins Apr 02, 2016 09:05
[2016-04-02 10:06] LABS: INTERNATIONAL NORMALIZED RATIO 2.4 RATIO; PROTHROMBIN TIME - PATIENT 26.3 SEC (9.8-11.4)
--- NOTE | 2016-04-02 11:41 | HHI.PR ---
Addendum To [facility] Progress Not Reason for addendum: Additonal documentation (reported by the RN that there was some oozing blood from the back wound- d/w the information assurance analyst today; will continue to monitor the wound for now with no change in care-this was d/w the patient's RN as well.) Medardo Au MD Apr 02, 2016 11:41
--- NOTE | 2016-04-02 14:27 | HHI.HCSW ---
Pizza Maker Visit Cognitive Functioning Mr. Flores currently lying in bed, eyes open during visit, doesn't appear to be tracking. Easily falls asleep during visit with family at bedside. . Significant Family/Friend Patient's mother at bedside and 1 other family member at bedside. Report noticing a change in urine color and smell. Also report some blood coming from wound on back. Gently discussed with them some ongoing challenges with patient' s who are bed bound relating to wounds, etc. Also discussed ongoing lab work and monitoring to watch for additional infections such as UTI, etc. They deny any questions/concerns. Patient's mother continues to express hope and ongoing prayer for Mr. Flores. . Pertinent Social History Mr. Flores is originally from [place]. He moved to the around 35 years ago, first to [place] and later to [place]. He is not legally but remains with his ex-, Leanne. They have been together for 31+ years and have three children together: Leanne, Gerald, and Ginny. Gerald is currently in [facility] for work. Mr. Flores has 2 brothers and 7 sisters. His father is of old age. His mother is alive and was living with the patient. There is no reported illness in the family, Leanne will attempt to find out more prior to family meeting tomorrow. 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 He is described as a "heavy smoker since age 14". Reported to smoke at least 1PPD, increasingly more in the past year relating to anxiety and fear of cancer returning. Denies alcohol use. He is described as an animated and charismatic man. He best responds to slow and clear speech, as German is his second language. He reportedly responds well to positive reinforcement at well. . Quality of Life Values/Goals He is very much a family man, he comes from a large family and has a good support system. . Advance Directive Per [place] Statutes, medical proxy decision making falls to the majority of adult children as Mr. Flores is not legally . Important Contacts Leanne, daughter: [phone] <--- point of contact Ginny, daughter: [phone] Gerald, son: currently in [facility] for work but has communication with his siblings. Leanne, ex-/current significant other: [phone] . Follow Up Visit Palliative care will continue to follow throughout hospitalization. SW will follow for emotional and social support. Shelly Jones MSW, DRYERMAN/WOMAN Apr 02, 2016 14:27
[2016-04-02] MEDS: WARFARIN SOD 3 MG TAB PO SCH (15:55)
[2016-04-02] MEDS: PARoxetine HCL SUSP 20 MG/10 ML UDC PEG SCH (18:10)
[2016-04-02] MEDS: INSULIN DETEMIR 100 UNITS/ML VIAL SQ SCH (22:17)
[2016-04-03] VITALS (10 sets, daily range): BP systolic 103–135; BP diastolic 67–79; PULSE 84–107; RESP 16–22; TEMP 96.6–100.4; O2SAT 94–100
[2016-04-03] MEDS: FREE WATER TUBE SCH ×7 (05:38→23:54)
[2016-04-03] MEDS: ACETIC ACID 0.25% SOLN 1000 ML IRR BTL IRRIGATION SCH ×3 (05:38→21:04)
[2016-04-03] MEDS: INSULIN ASPART SUPPLEMENTAL SCALE SQ SCH ×4 (05:40→20:57)
[2016-04-03 08:26] LABS: INTERNATIONAL NORMALIZED RATIO 2.3 RATIO; PROTHROMBIN TIME - PATIENT 25.4 SEC (9.8-11.4)
[2016-04-03] MEDS: NYSTATIN 100,000 U/GM PWD 15 GM BTL TOPICAL SCH ×2 (09:00→22:06)
[2016-04-03] MEDS: SENNOSIDES SYRUP 8.8 MG/5 ML CUP TUBE SCH (09:00)
[2016-04-03] MEDS: DILTIAZEM-CD 120 MG CAP ER PO SCH (09:06)
[2016-04-03] MEDS: RANITIDINE HCL SYRUP 150 MG/10 ML UDC PO SCH (09:06)
[2016-04-03] MEDS: ACETAMINOPHEN 650 MG/20.3 ML UDC TUBE PRN (09:06)
[2016-04-03] MEDS: METOPROLOL TARTRATE 50 MG TAB PO SCH ×2 (09:06→20:56)
[2016-04-03] MEDS: levETIRAcetam 500 MG/5 ML UDC TUBE SCH ×2 (09:06→20:56)
--- NOTE | 2016-04-03 10:46 | HHI.PR ---
Subjective Remarks Patient resting comfortably in bed, eyes open, appears to track with eyes, however does not follow commands at this time. Mother at bedside, no concerns at this time. Concern from nursing staff over amount of codi red drainage from sacral wound onto dressing, vitals are stable, wound care consulted, will continue to monitor. Objective Vitals Vital Signs Date Time Temp Pulse Resp B/P Pulse Ox O2 Delivery O2 Flow Rate FiO2 04/03/16 09:18 97 T-piece 6.00 21 04/03/16 08:30 100.4 103 22 125/68 97 04/03/16 07:00 98 T-Piece 6.00 21 Humidified 04/03/16 04:00 97.1 99 16 111/69 100 04/03/16 00:00 96.6 86 16 110/69 100 04/02/16 21:44 96 T-piece 6.00 21 04/02/16 21:44 96 T-piece 6.00 21 04/02/16 20:00 98.3 103 15 117/71 100 04/02/16 16:56 96 6.00 28 04/02/16 16:33 98.3 89 22 100/60 99 04/02/16 16:19 97 T-piece 5.00 21 04/02/16 12:06 99.3 94 22 101/64 99 I/O 04/02/16 04/02/16 04/02/16 04/03/16 04/03/16 04/03/16 07:00 15:00 23:00 07:00 15:00 23:00 Intake Total 400 ml 400 ml 0 ml Output Total 600 ml 900 ml 450 ml Balance -600 ml 400 ml -500 ml -450 ml Intake Oral 0 ml 0 ml Other 400 ml 400 ml Output Urine Total 600 ml 900 ml 450 ml # Bowel Movements 0 2 0 Result Diagram: 03/31/16 0838 04/02/16 0904 Imaging Last Impressions Chest X-Ray 03/13/16 0000 Signed Impressions: Service Date/Time: Sunday, March 13, 2016 06:21 - CONCLUSION: Stable chest Wellington West MD Head Magnetic Resonance Angiography 03/05/16 0000 Signed Impressions: Service Date/Time: Saturday, March 05, 2016 09:26 - CONCLUSION: Persistent high-grade subtotal occlusive stenotic lesions in the distal right vertebral artery and proximal basilar artery with significant improvement in flow and recanalization following initial presentation of thrombosis. Stable interstitial circulation without significant stenosis. 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 There is decreasing restricted diffusion and increasing loss of volume characteristic of a subacute to chronic infarct. No evidence of acute infarct, acute hemorrhage mass or edema. Ernesto Kulkarni MD Head CT 01/16/16 0000 Signed Impressions: Service Date/Time: Saturday, January 16, 2016 10:51 - CONCLUSION: No extensive low density in the brainstem colin more prominent in the right the left extending into the right middle cerebellar peduncle consistent with brainstem infarct nonhemorrhagic acute Wellington West MD Abdomen X-Ray 01/14/16 0000 Signed Impressions: Service Date/Time: Thursday, January 14, 2016 10:19 - CONCLUSION: Moderate stool; otherwise, negative. 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 No evidence of carotid stenosis. Glen Zamora MD Head/Brain Mag Res Venography 12/22/15 0000 Signed Impressions: Service Date/Time: Tuesday, December 22, 2015 09:22 - CONCLUSION: Normal MRV. Jonel Jones Jr., MD Objective Remarks GENERAL: Elderly patient, in no acute distress. SKIN: Warm and dry. No rashes generalized distribution noted. HEAD: Normocephalic. Atraumatic. EYES: No scleral icterus. No injection or drainage. NECK: Supple, trachea midline. No JVD. Tracheostomy in place CARDIOVASCULAR: Regular rate and rhythm without murmurs, gallops, or rubs. RESPIRATORY: Breath sounds equal bilaterally. No accessory muscle use. Trach in place. GASTROINTESTINAL: Abdomen soft, non-tender, nondistended. Normoactive bowel sounds 4. PEG in place. MUSCULOSKELETAL: Extremities without clubbing, cyanosis, or edema. NEUROLOGICAL: Does not spontaneously move extremities, Nonverbal. ? tracking with eyes. 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 Significant residual cognitive deficit. -Nonverbal at this time; appears to be in a locked in state. -Continue Keppra and Coumadin- Palliative care following. Monitor Keppra, last level 03/08 was 15.4. INR 2.3 today. - Neurology following, continue Keppra and coumadin. GI/Nutrition: Previous PEG tube exchanged by GI at bedside 03/30/2016. Awaiting dietary recommendations; Nepro tube feedings for sodium content to continue at 55 mL, hour. Patient's daily weight has decreased over the last week from 90- 93kg to 86.5kg, dietary reconsulted to assess caloric needs. Appreciate their recommendations. Weight has been confirmed, 89.8 kg; discrepancy was due to leaving pillows, sheets on bed while weighing. Respiratory failure: Secondary to CVA. Patient is status post tracheostomy. Continue pulmonary toilet and neb treatments as needed. Pulmonary following. - Levsin PRN secretions. Depression: Continue Paxil. A-fib: continue Lopressor, cardizem, warfarin with INR/PT monitoring. Echocardiogram completed in November shows preserved EF. Pharmacy assisting with Coumadin dosing to keep therapeutic. UTI: Resolved. Urine culture with Klebsiella on 01/31 and repeat on 03/06 negative. Arevalo replaced on 03/07. Coccyx pressure ulcer: Plastic surgery recommendations appreciated. Wound care nurse input appreciated and recommended continue current treatment per protocol ; repositioning Q2-3H; Mineral Resources Inspector consult. Concern over increased amount of codi red blood on dressing; patient is on blood thinners. H&H is noted to be low but stable. We'll continue to monitor H&H. If this drops or if codi red blood does not decrease in amount, may consider reconsulting plastic surgery. History of Non-Hodgkin lymphoma: s/p brain biopsy on December 13, by Neurosurgery, Dr. Marin, Pathology consistent with acute infarct without evidence of lymphoma -Seen by Oncology, Dr. Whyte, who has signed off for current admission. DM: Hemoglobin A1c is 7.0. Continue Levemir with sliding scale insulin- monitor and adjust the regimen as needed. Blood sugar 159 this morning. Pneumonia with MRSA: patient having fevers 02/27-03/08, Blood cultures on 03/03 grew gram-negative rods in 1 out of 4 bottles, repeat blood cultures 03/06 negative. Sputum culture 03/08 with MRSA. Infectious disease consulted, Bactrim and Flagyl completed 03/14, Vanco completed 03/17. Do not repeat culture unless fevers return, per ID. DVT prophylaxis: Full anticoagulation with Coumadin. INR therapeutic CBC BMP as needed. Care was discussed with patient, family, RN, Dr. Au Discharge Planning Patient was approved for Medicaid, SSI pending. Will need long-term SNF placement. Attending Statement patient was seen and examined. d/w the RN; had a fever spike earlier.T max 101.3. will check the blood cultures- UA/UC. monitor temps and will consult ID. Problem Qualifiers (1) DM (diabetes mellitus): Qualified Code: E11.9 - Type 2 diabetes mellitus without complications Melly Collins Apr 03, 2016 10:46 Medardo Au MD Apr 03, 2016 13:36
--- NOTE | 2016-04-03 15:51 | HHI.IDPN ---
Note Infectious Disease Note Asked to see patient again for fever. Patient has low grade fever. Chart reviewed. Patient is awake. Not verbal. Has trach collar. Light yellow sputum occasional but mostly clear. Has lopez catheter. This 60-year-old male was admitted to the hospital on December 20 with altered mental status. He was eventually found to have a CVA. He was recently diagnosed with stage III non-Hodgkin's lymphoma about a year ago. The patient was intubated and he underwent tracheostomy and feeding tube placement. He was diagnosed with an acute stroke. PAST MEDICAL HISTORY 1. Hypertension. 2. Stage III non-Hodgkin's lymphoma. 3. Diabetes mellitus. 4. Paroxysmal atrial fibrillation. 5. Brain biopsy in Nov, 2015. 6. History of left arm surgery. ALLERGIES NO KNOWN DRUG ALLERGIES. Current Medications Medications (Trade) Dose Ordered Sig/Junior Route PRN Reason Start Time Stop Time Status Last Admin Dose Admin IV Flush (NS Flush) 2 ml UNSCH PRN IVF FLUSH AFTER USING IV ACCESS 12/21/15 06:00 03/20/16 20:50 Dextrose (D50w (Vial) Inj) 25 ml UNSCH PRN IV PUSH HYPOGLYCEMIA-SEE COMMENTS 12/21/15 13:00 Glucagon (Glucagon Inj) 1 mg UNSCH PRN OTHER HYPOGLYCEMIA-SEE COMMENTS 12/21/15 13:00 Levetriacetam (Keppra Liq) 500 mg Q12HR TUBE 12/27/15 21:00 04/03/16 09:06 Docusate Sodium (Colace Liq) 100 mg Q12HR TUBE 12/27/15 21:00 Hold 01/15/16 09:01 Acetaminophen (Tylenol 650 Mg/ 20 ml Liq) 650 mg Q6H PRN TUBE TEMP >100.4 12/30/15 15:15 04/03/16 09:06 Acetaminophen/ Hydrocodone Bitart 1 tab 1 tab Q6H PRN PO PAIN 12/31/15 15:00 03/26/16 15:47 Pharmacy Profile Note (Coumadin Consult Pharmacy) 0 ml @ 0 mls/hr UNSCH XX 01/04/16 12:30 Nystatin (Mycostatin Powder) 1 applic Q12HR TOPICAL 01/08/16 21:00 04/03/16 09:00 Miscellaneous (Pill Splitter) 1 ea UNSCH PRN OTHER SEE LABEL COMMENTS 01/14/16 08:30 Ranitidine HCl (Zantac Liq) 150 mg Q24H PO 01/18/16 09:00 04/03/16 09:06 Water (Free Water) 400 ml Q4HR TUBE 01/19/16 12:00 04/03/16 12:00 Acetic Acid (Acetic Acid 0.25% Irr Btl) 10 ml Q8HR IRRIGATION 02/05/16 16:00 04/03/16 12:21 Sennosides (Senna Liq) 8.8 mg DAILY TUBE 02/21/16 09:00 03/31/16 08:18 Lorazepam (Ativan Inj) 0.5 mg Q4H PRN IV PUSH seizures 03/07/16 23:00 Warfarin Sodium (Coumadin) 3 mg DAILY@16 PO 03/10/16 16:00 04/02/16 15:55 Paroxetine HCl (Paxil Liq) 20 mg DAILY@1900 PEG 03/12/16 19:00 04/02/16 18:10 Diltiazem HCl (Cardizem Cd) 120 mg DAILY PO 03/22/16 16:00 04/03/16 09:06 Hyoscyamine Sulfate (Levsin Liq) 0.125 mg Q4H PRN PEG INCREASED SECRETIONS 03/22/16 15:15 03/25/16 18:23 Insulin Detemir (Levemir Inj) 35 units HS SQ 03/24/16 21:00 04/02/16 22:17 Metoprolol Tartrate (Lopressor) 75 mg BID PO 04/02/16 21:00 04/03/16 09:06 SOCIAL HISTORY . Positive tobacco use. No alcohol use. No illicit drugs. FAMILY HISTORY Unable to obtain. OBJECTIVE: Vital Signs Date Time Temp Pulse Resp B/P Pulse Ox O2 Delivery O2 Flow Rate FiO2 04/03/16 12:06 97.8 84 20 103/67 99 04/03/16 09:18 97 T-piece 6.00 21 04/03/16 08:30 100.4 103 22 125/68 97 04/03/16 07:45 103 04/03/16 07:00 98 T-Piece 6.00 21 Humidified 04/03/16 04:00 97.1 99 16 111/69 100 04/03/16 00:00 96.6 86 16 110/69 100 04/02/16 21:44 96 T-piece 6.00 21 04/02/16 21:44 96 T-piece 6.00 21 04/02/16 20:00 98.3 103 15 117/71 100 04/02/16 16:56 96 6.00 28 04/02/16 16:33 98.3 89 22 100/60 99 04/02/16 16:19 97 T-piece 5.00 21 04/02/16 04/02/16 04/03/16 15:00 23:00 07:00 Intake Total 400 ml 400 ml 0 ml Output Total 900 ml 450 ml Balance 400 ml -500 ml -450 ml Intake Oral 0 ml 0 ml Other 400 ml 400 ml Output Urine Total 900 ml 450 ml # Bowel Movements 2 0 IMAGING: Chest X-Ray 03/13/16 0000 Signed Impressions: Service Date/Time: Sunday, March 13, 2016 06:21 - CONCLUSION: Stable chest Wellington West MD Head Magnetic Resonance Angiography 03/05/16 0000 Signed Impressions: Service Date/Time: Saturday, March 05, 2016 09:26 - CONCLUSION: Persistent high-grade subtotal occlusive stenotic lesions in the distal right vertebral artery and proximal basilar artery with significant improvement in flow and recanalization following initial presentation of thrombosis. Stable interstitial circulation without significant stenosis. 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 There is decreasing restricted diffusion and increasing loss of volume characteristic of a subacute to chronic infarct. No evidence of acute infarct, acute hemorrhage mass or edema. Ernesto Kulkarni MD Head CT 01/16/16 0000 Signed Impressions: Service Date/Time: Saturday, January 16, 2016 10:51 - CONCLUSION: No extensive low density in the brainstem colin more prominent in the right the left extending into the right middle cerebellar peduncle consistent with brainstem infarct nonhemorrhagic acute Wellington West MD Abdomen X-Ray 01/14/16 0000 Signed Impressions: Service Date/Time: Thursday, January 14, 2016 10:19 - CONCLUSION: Moderate stool; otherwise, negative. Octavio Ramírez MD FACR Neck Magnetic Resonance Angiography 12/22/15 [id number] Signed Impressions: Service Date/Time: Tuesday, December 22, 2015 09:22 - CONCLUSION: Variant origin of the left vertebral artery from the aortic arch. No evidence of carotid stenosis. Glen Zamora MD Head/Brain Mag Res Venography 12/22/15 0000 Signed Impressions: Service Date/Time: Tuesday, December 22, 2015 09:22 - CONCLUSION: Normal MRV. Jonel Jones Jr., MD PHYSICAL EXAMINATION GENERAL: No acute distress. Awake. HEENT: The sclerae are nonicteric. No erythema. Oropharynx - moist mucosa visible. NECK: Supple without adenopathy. LUNGS: Diminished breath sounds. Basilar rhonchi. HEART: Regular rate and rhythm without murmurs, rubs or gallops. ABDOMEN: Bowel sounds present, soft, no tenderness appreciated. BACK: Deep tunnelling sacrum ulcer which has bloody drainage. EXTREMITIES: No clubbing, cyanosis or edema. NEUROLOGIC: Unable to assess. SKIN: No rash. IMPRESSION 1. Fever. Questionable etiology. Recurrent. 2. CVA. 3. Post tracheostomy. 4. Sacral wound. RECOMMENDATIONS 1. Obtain sputum culture. 2. Monitor urinalysis/culture. 3. Withhold antibiotics for now since the fever is low grade. 4. Monitor the temp. 5. Sacral wound dressing per wound care. Carlos Liu MD Apr 03, 2016 15:51
[2016-04-03 16:08] LABS: BLOOD, URINE NEG (NEG); GLUCOSE,URINE NEG (NEG); KETONE, URINE NEG (NEG); MUCUS URINE FEW /lpf (OCC); NITRITE,URINE NEG (NEG); URINE COLOR LIGHT-YELLOW (YELLW/STRAW)
[2016-04-03 16:10] LABS: COMMENT (UR) CATH-CULT NOT IND; CULTURE IF INDICATED CATH CULTURE NOT IND
[2016-04-03] MEDS: WARFARIN SOD 3 MG TAB PO SCH (16:52)
[2016-04-03] MEDS: PARoxetine HCL SUSP 20 MG/10 ML UDC PEG SCH (18:13)
[2016-04-03] MEDS: INSULIN DETEMIR 100 UNITS/ML VIAL SQ SCH (20:56)
[2016-04-04] VITALS (8 sets, daily range): BP systolic 110–128; BP diastolic 71–81; PULSE 90–115; RESP 14–20; TEMP 96.9–99.7; O2SAT 96–98
[2016-04-04] MEDS: FREE WATER TUBE SCH ×5 (04:00→20:00)
[2016-04-04] MEDS: ACETIC ACID 0.25% SOLN 1000 ML IRR BTL IRRIGATION SCH ×3 (05:09→21:28)
[2016-04-04] MEDS: INSULIN ASPART SUPPLEMENTAL SCALE SQ SCH ×4 (05:17→21:00)
[2016-04-04] MEDS: NYSTATIN 100,000 U/GM PWD 15 GM BTL TOPICAL SCH ×2 (09:00→21:00)
[2016-04-04] MEDS: RANITIDINE HCL SYRUP 150 MG/10 ML UDC PO SCH (09:09)
[2016-04-04] MEDS: SENNOSIDES SYRUP 8.8 MG/5 ML CUP TUBE SCH (09:09)
[2016-04-04] MEDS: levETIRAcetam 500 MG/5 ML UDC TUBE SCH ×2 (09:09→21:24)
[2016-04-04] MEDS: DILTIAZEM-CD 120 MG CAP ER PO SCH (09:09)
[2016-04-04] MEDS: METOPROLOL TARTRATE 50 MG TAB PO SCH ×2 (09:09→21:24)
[2016-04-04 09:40] LABS: HEMATOCRIT 28.5 % (39.0-51.0); MEAN CELL VOLUME 73.1 FL (80.0-100.0); MEAN CORPUSCULAR HEMOGLOBIN 24.3 PG (27.0-34.0); MEAN CORPUSCULAR HGB CONC 33.2 % (32.0-36.0); PLATELET COUNT 234 TH/MM3 (150-450); WHITE BLOOD COUNT 6.2 TH/MM3 (4.0-11.0)
[2016-04-04 09:45] LABS: INTERNATIONAL NORMALIZED RATIO 2.5 RATIO; PROTHROMBIN TIME - PATIENT 27.5 SEC (9.8-11.4)
[2016-04-04 09:50] LABS: BICARBONATE 27.4 MEQ/L (21.0-32.0); POTASSIUM 3.4 MEQ/L (3.5-5.1)
--- NOTE | 2016-04-04 12:24 | HHI.PR ---
Subjective Remarks remains afebrile. in no acute distress. Objective Vitals Vital Signs Date Time Temp Pulse Resp B/P Pulse Ox O2 Delivery O2 Flow Rate FiO2 04/04/16 11:50 98.2 90 14 110/74 96 04/04/16 09:56 98 04/04/16 07:43 98.3 102 14 122/81 98 04/04/16 06:50 99 T-Piece 6.00 21 Humidified 04/04/16 04:00 97.1 102 18 128/79 96 04/03/16 23:52 96.7 85 18 119/74 100 04/03/16 22:00 T-Piece 6.00 21 Humidified 04/03/16 21:43 100 T-piece 21 04/03/16 21:43 100 T-piece 6.00 21 04/03/16 20:00 94 04/03/16 20:00 97.0 107 18 135/79 94 04/03/16 16:08 99.9 90 22 118/74 99 I/O 04/03/16 04/03/16 04/03/16 04/04/16 04/04/16 04/04/16 07:00 15:00 23:00 07:00 15:00 23:00 Intake Total 0 ml 1713 ml 1200 ml Output Total 450 ml 850 ml 1700 ml Balance -450 ml 863 ml -500 ml Intake Oral 0 ml Tube Feeding 1313 ml 400 ml Other 400 ml 800 ml Output Urine Total 450 ml 850 ml 1700 ml # Bowel Movements 0 1 1 Result Diagram: 04/04/16 0911 04/04/16 0911 Imaging Last Impressions Chest X-Ray 03/13/16 0000 Signed Impressions: Service Date/Time: Sunday, March 13, 2016 06:21 - CONCLUSION: Stable chest Wellington West MD Head Magnetic Resonance Angiography 03/05/16 0000 Signed Impressions: Service Date/Time: Saturday, March 05, 2016 09:26 - CONCLUSION: Persistent high-grade subtotal occlusive stenotic lesions in the distal right vertebral artery and proximal basilar artery with significant improvement in flow and recanalization following initial presentation of thrombosis. Stable interstitial circulation without significant stenosis. 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 There is decreasing restricted diffusion and increasing loss of volume characteristic of a subacute to chronic infarct. No evidence of acute infarct, acute hemorrhage mass or edema. Ernesto Kulkarni MD Head CT 01/16/16 0000 Signed Impressions: Service Date/Time: Saturday, January 16, 2016 10:51 - CONCLUSION: No extensive low density in the brainstem colin more prominent in the right the left extending into the right middle cerebellar peduncle consistent with brainstem infarct nonhemorrhagic acute Wellington West MD Abdomen X-Ray 01/14/16 0000 Signed Impressions: Service Date/Time: Thursday, January 14, 2016 10:19 - CONCLUSION: Moderate stool; otherwise, negative. 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 No evidence of carotid stenosis. Glen Zamora MD Head/Brain Mag Res Venography 12/22/15 0000 Signed Impressions: Service Date/Time: Tuesday, December 22, 2015 09:22 - CONCLUSION: Normal MRV. Jonel Jones Jr., MD Objective Remarks GENERAL: on Trach- in no apparent distress. Neck; trach in place CARDIOVASCULAR: Regular rate and regular rhythm without murmurs, gallops, or rubs. RESPIRATORY: Clear to auscultation. Breath sounds equal bilaterally. No wheezes , rales, or rhonchi. GASTROINTESTINAL: Abdomen soft, non-tender,distended. hypoactive bowel sounds-PEG in place MUSCULOSKELETAL: Extremities without clubbing, cyanosis, or edema. NEURO: opens the eyes to verbal stimuli Procedures 01/02/16 PEG placement 01/02/16 tracheostomy Medications and IVs Current Medications IV Flush (NS Flush) 2 ml UNSCH PRN IVF FLUSH AFTER USING IV ACCESS Last administered on 03/20/16at 20:50; Start 12/21/15 at 06:00 Ondansetron HCl (Zofran Inj) 4 mg STK-MED ONCE .ROUTE ; Start 12/21/15 at 06:22; Stop 12/21/15 at 06:23; Status DC Ondansetron HCl (Zofran Inj) 4 mg ONCE ONCE IV PUSH Last administered on 06:43; Start 12/21/15 at 06:30; Stop 12/21/15 at 06:31; Status DC Diltiazem HCl 20 mg 20 mg ONCE ONCE IV Last administered on 12/21/15 06:42; Start 12/21/15 at 06:30; Stop 12/21/15 at 06:31; Status DC Diltiazem HCl/ Sodium Chloride (Cardizem Inj/NS Inj) 125 ml @ 0 mls/hr TITRATE IV Last administered on 12/21/15at 06:47; Start 12/21/15 at 06:30; Stop 12/21/15 at 13:00; Status DC Acetaminophen (Tylenol) 650 mg ONCE ONCE PO ; Start 12/21/15 at 06:45; Stop 12/20 at 06:46; Status DC Lorazepam (Ativan Inj) 1 mg ONCE ONCE IV PUSH Last administered on 12/21/15at 07 :22; Start 12/21/15 at 07:15; Stop 12/21/15 at 07:16; Status DC Etomidate (Amidate Inj) 40 mg STK-MED ONCE .ROUTE Last administered on 08:17; Start 12/21/15 at 07:37; Stop 12/21/15 at 07:38; Status DC Succinylcholine Chloride 200 mg 200 mg STK-MED ONCE .ROUTE Last administered on 12/21/15 08:18; Start 12/21/15 at 07:37; Stop 12/21/15 at 07:38; Status DC Propofol (Diprivan 1000 Mg/100ml Inj) 100 ml @ As Directed STK-MED ONCE .ROUTE Last administered on 12/21/15at 08:19; Start 12/21/15 at 07:46; Stop 12/21/15 at 07:47; Status DC Propofol (Diprivan 1000 Mg/100ml Inj) search Sets for Drip. NOW PRN IV SEDATION Last administered on 12/22/15at 06:25; Start 12/21/15 at 08:30; Stop 12/28 at 15:43; Status DC Gadodiamide (Omniscan Pf Inj) 18 ml STK-MED ONCE IV Last administered on at 10:11; Start 12/21/15 at 10:11; Stop 12/21/15 at 10:12; Status DC Pantoprazole Sodium (Protonix Inj) 40 mg DAILY IV Last administered on at 07:39; Start 12/21/15 at 13:00; Stop 01/03/16 at 10:10; Status DC Albuterol/ Ipratropium (Duoneb Neb) 1 ampule Q6HR NEB INH Last administered on 12/25/15at 07:51; Start 12/21/15 at 13:00; Stop 12/25/15 at 13:00; Status DC Miscellaneous Information 1 [id number] Last administered on 12/21/15at 13:00; Start 12/21/15 at 13:00; Stop 01/12/16 at 11:47; Status DC Chlorhexidine Gluconate (Chlorhexidine 2% Cloth) 3 pack Taper DAILY@04 TOP Last administered on 01/11/16at 04:10; Start 12/22/15 at 04:00; Stop 01/12/16 at 11:47; Status DC Chlorhexidine Gluconate 3 pack 3 pack UNSCH PRN TOP HYGIENIC CARE; Start at 13:00; Stop 01/12/16 at 11:47; Status DC Sodium Chloride (NS 1000 ml Inj) 1,000 ml @ 75 mls/hr [id number] IV Last administered on 12/22/15at 17:00; Start 12/21/15 at 13:00; Stop 12/22/15 at 19:01; Status DC Dextrose (D50w (Vial) Inj) 25 ml UNSCH PRN IV PUSH HYPOGLYCEMIA-SEE COMMENTS; Start 12/21/15 at 13:00 Glucagon (Glucagon Inj) 1 mg UNSCH PRN OTHER HYPOGLYCEMIA-SEE COMMENTS; Start 12/21/15 at 13:00 Insulin Human Regular (NovoLIN R SUPPLEMENTAL SCALE) 1 Q6H SQ Last administered on 01/04/16at 06:31; Start 12/21/15 at 13:00; Stop 01/04/16 at 10:05 ; Status DC Levetriacetam (Keppra) 500 mg Q12HR PO Last administered on 12/27/15at 09:00; Start 12/21/15 at 13:45; Stop 12/27/15 at 09:44; Status DC Heparin Sodium (Porcine) (Heparin Inj) 5,000 units BID SQ Last administered on 12/22/15at 20:52; Start 12/21/15 at 21:00; Stop 12/23/15 at 08:32; Status DC Warfarin Sodium (Coumadin) 7.5 mg ONCE ONCE PO Last administered on 12/21/15 21:43; Start 12/21/15 at 21:00; Stop 12/21/15 at 21:01; Status DC Warfarin Sodium (Coumadin) 5 mg DAILY@16 PO Last administered on 12/23/15at 16:00 ; Start 12/22/15 at 16:00; Stop 12/26/15 at 09:29; Status DC Patient Medication Teaching (Coumadin Booklet) 1 ONCE ONCE XX Last administered on 12/21/15at 20:15; Start 12/21/15 at 20:15; Stop 12/21/15 at 20:16; Status DC Chlorhexidine Gluconate (Peridex 0.12% Liq) 15 ml BID@08,20 MT Last administered on 01/12/16at 08:00; Start 12/22/15 at 20:00; Stop 01/12/16 at 11:47 ; Status DC Gadodiamide 20 ml 20 ml STK-MED ONCE IV Last administered on 12/22/15at 09:55; Start 12/22/15 at 09:55; Stop 12/22/15 at 09:56; Status DC Pharmacy Profile Note ml @ 0 mls/hr UNSCH OTHER ; Start 12/22/15 at 11:00; Stop 12/22/15 at 19:43; Status DC Sodium Chloride 1,000 ml @ 50 mls/hr Q20H IV Last administered on 12/24/15at 20: 02; Start 12/22/15 at 18:44; Stop 12/25/15 at 11:52; Status DC Pharmacy Profile Note (Coumadin Consult Pharmacy) 0 ml @ 0 mls/hr UNSCH OTHER ; Start 12/22/15 at 19:45; Stop 01/04/16 at 12:25; Status DC Acetaminophen 650 mg 650 mg Q6H PRN PO TEMP > 100 Last administered on at 13:24; Start 12/23/15 at 02:45; Stop 12/30/15 at 15:04; Status DC Potassium Chloride 100 ml @ 50 mls/hr Q2H PRN IV For Potassium 2.8 - 3.2 mEq/L ; Start 12/23/15 at 08:30; Stop 01/09/16 at 11:14; Status DC Potassium Chloride (KCl 20 Meq Premix Inj) 100 ml @ 50 mls/hr Q2H PRN IV For Potassium 2.8 - 3.2 mEq/L; Start 12/23/15 at 08:30; Stop 01/09/16 at 11:14; Status DC Potassium Chloride 40 meq 40 meq UNSCH PRN PO/TUBE For Potassium 3.3 - 3.5 mEq/ L; Start 12/23/15 at 08:30; Stop 01/09/16 at 11:14; Status DC Potassium Chloride 100 ml @ 25 mls/hr UNSCH PRN IV For Potassium 3.3 - 3.5 mEq /L; Start 12/23/15 at 08:30; Stop 01/09/16 at 11:14; Status DC Potassium Chloride 100 ml @ 50 mls/hr Q2H PRN IV For Potassium 3.3 - 3.5 mEq/L ; Start 12/23/15 at 08:30; Stop 01/09/16 at 11:14; Status DC Magnesium Sulfate/ Sodium Chloride (Magnesium Sulfate Inj/NS Inj) 100 ml @ 50 mls/hr UNSCH PRN IV For Magnesium 0.9 - 1.1 mg/dL; Start 12/23/15 at 08:30; Stop 01/09/16 at 11:14; Status DC Magnesium Oxide 800 mg 800 mg UNSCH PRN PO For Magnesium 1.2 - 1.6 mg/dL; Start 12/23/15 at 08:30; Stop 01/09/16 at 11:14; Status DC Magnesium Sulfate/ Sodium Chloride (Magnesium Sulfate Inj/NS Inj) 100 ml @ 50 mls/hr UNSCH PRN IV For Magnesium 1.2 - 1.6 mg/dL; Start 12/23/15 at 08:30; Stop 01/09/16 at 11:14; Status DC Potassium Phosphate 2000 mg 2,000 mg Q4H PRN PO For Phosphorus < 2.5 mg/dL; Start 12/23/15 at 08:30; Stop 01/09/16 at 11:14; Status DC Sodium Phosphate/ Sodium Chloride (Sodium Phosphate Inj/NS 250 ml Inj) 250 ml @ 42 mls/hr UNSCH PRN IV For Phosphorus < 2.5 mg/dL; Start 12/23/15 at 08:30; Stop 01/09/16 at 11:14; Status DC Potassium Chloride (KCl 40 Meq/30 ml Liq) 40 meq UNSCH PRN PO/TUBE SEE LABEL COMMENTS; Start 12/23/15 at 08:30; Stop 01/09/16 at 11:14; Status DC Potassium Phosphate 2000 mg 2,000 mg UNSCH PRN PO/TUBE SEE LABEL COMMENTS; Start 12/23/15 at 08:30; Stop 01/09/16 at 11:14; Status DC Potassium Phosphate 30 mmol/ Sodium Chloride 260 ml @ 42 mls/hr UNSCH PRN IV SEE LABEL COMMENTS; Start 12/23/15 at 08:30; Stop 01/09/16 at 11:14; Status DC Sodium Chloride 1,000 ml @ 75 mls/hr [id number] IV ; Start 12/23/15 at 08:30; Stop 12/23/15 at 08:30; Status DC Piperacillin Sod/ Tazobactam Sod 50 ml @ 100 mls/hr Q6H IV Last administered on 12/30/15at 10:02; Start 12/23/15 at 10:00; Stop 12/30/15 at 14:50; Status DC Vancomycin HCl/ Sodium Chloride (Vancomycin Inj/ NS 250 ml Inj) 250 ml @ 250 mls/hr Q12H IV Last administered on 12/29/15at 09:01; Start 12/24/15 at 08:45; Stop 12/29/15 at 15:33; Status DC Warfarin Sodium (Coumadin) 4 mg DAILY@16 PO Last administered on 12/28/15at 16:00 ; Start 12/26/15 at 16:00; Stop 01/04/16 at 12:25; Status DC Levetriacetam (Keppra Liq) 500 mg Q12HR TUBE Last administered on 04/04/16at 09 :09; Start 12/27/15 at 21:00 Docusate Sodium (Colace Liq) 100 mg Q12HR TUBE Last administered on 01/15/16at 09:01; Start 12/27/15 at 21:00; Status Hold Sennosides (Senna Liq) 8.8 mg DAILY TUBE Last administered on 01/15/16at 09:01 ; Start 12/27/15 at 17:00; Stop 01/15/16 at 20:37; Status DC Bisacodyl (Dulcolax Supp) 10 mg ONCE ONCE RECTAL ; Start 12/27/15 at 16:15; Stop 12/27/15 at 16:15; Status DC Albuterol/ Ipratropium (Duoneb Neb) 1 ampule Q4HR NEB PRN NEB RESPIRATORY DISTRESS Last administered on 12/29/15at 12:17; Start 12/27/15 at 22:00; Stop at 08:16; Status DC Bisacodyl (Dulcolax Supp) 10 mg ONCE ONCE RECTAL ; Start 12/28/15 at 12:00; Stop 12/28/15 at 12:01; Status DC Sodium Chloride (Sodium Chloride) 1 gm BID TUBE Last administered on 12/29/15at 09:02; Start 12/28/15 at 21:00; Stop 12/29/15 at 15:43; Status DC Lactulose (Lactulose Liq) 30 ml DAILY TUBE Last administered on 12/29/15at 09:02 ; Start 12/28/15 at 20:30; Stop 12/29/15 at 15:43; Status DC Levofloxacin (Levaquin) 750 mg DAILY@16 TUBE ; Start 12/29/15 at 16:00; Stop 05/05 at 16:00; Status DC Sodium Chloride (Sodium Chloride) 1 gm DAILY TUBE Last administered on at 07:29; Start 12/30/15 at 09:00; Stop 12/31/15 at 14:08; Status DC Water 200 ml 200 ml Q6HR G-TUBE Last administered on 12/31/15at 04:19; Start 06/05 at 14:45; Stop 12/31/15 at 07:31; Status DC Ceftriaxone Sodium/Sodium Chloride (Rocephin Inj/NS Inj) 100 ml @ 200 mls/hr Q12H IV Last administered on 01/03/16at 02:47; Start 12/30/15 at 15:00; Stop at 10:09; Status DC Acetaminophen (Tylenol 650 Mg/ 20 ml Liq) 650 mg Q6H PRN TUBE TEMP >100.4 Last administered on 04/03/16at 09:06; Start 12/30/15 at 15:15 Lactobacillus Acidophilus (Lactinex Pkt) 1 gm BID TUBE Last administered on at 09:00; Start 12/30/15 at 21:00; Stop 02/10/16 at 14:30; Status DC Enoxaparin Sodium (Lovenox Inj) 90 mg Q12H SQ Last administered on 01/01/16at 21 :57; Start 12/31/15 at 08:00; Stop 01/03/16 at 10:33; Status DC Water (Free Water) 100 ml Q12H G-TUBE ; Start 12/31/15 at 18:00; Stop 12/31/15 at 18:00; Status DC Acetaminophen/ Hydrocodone Bitart ([place] 5-325 Mg) 1 tab Q6H PRN PO PAIN Last administered on 03/26/16at 15:47; Start 12/31/15 at 15:00 Fentanyl Citrate (Sublimaze Inj) 25 mcg Q1H PRN IV PUSH BREAKTHROUGH PAIN; Start 12/31/15 at 15:00; Stop 03/06/16 at 10:03; Status DC Water (Free Water) 200 ml Q8H G-TUBE Last administered on 01/01/16at 17:55; Start 12/31/15 at 18:00; Stop 01/02/16 at 09:56; Status DC Sodium Chloride (Sodium Chloride) 1 gm BID TUBE Last administered on 01/03/16at 07:39; Start 12/31/15 at 21:00; Stop 01/03/16 at 09:08; Status DC Miscellaneous Information Hold Anticoagulation after midni... ONCE ONCE OTHER ; Start 01/01/16 at 10:15; Stop 01/01/16 at 10:29; Status DC Sodium Chloride (NS 1000 ml Inj) 1,000 ml @ 50 mls/hr Q20H IV Last administered on 01/02/16at 12:26; Start 01/01/16 at 18:00; Stop 01/03/16 at 10:07 ; Status DC Midazolam HCl (Versed Inj) 5 mg STK-MED ONCE .ROUTE ; Start 01/02/16 at 12:47; Stop 01/02/16 at 12:48; Status DC Vecuronium Cranks (Norcuron 10 Mg Inj) 10 mg STK-MED ONCE .ROUTE ; Start at 12:47; Stop 01/02/16 at 12:48; Status DC Fentanyl Citrate (Sublimaze Inj) 250 mcg ONCE ONCE IV PUSH Last administered on 01/02/16at 15:00; Start 01/02/16 at 15:00; Stop 01/02/16 at 15:01; Status DC Midazolam HCl (Versed Inj) 10 mg ONCE ONCE IV PUSH Last administered on at 15:00; Start 01/02/16 at 15:00; Stop 01/02/16 at 15:01; Status DC Rocuronium Cranks (Zemuron Inj) 100 mg BOLUS ONCE IV Last administered on at 15:00; Start 01/02/16 at 15:00; Stop 01/02/16 at 15:01; Status DC Ketamine HCl (Ketalar Inj) 500 mg STK-MED ONCE .ROUTE ; Start 01/02/16 at 14:30 ; Stop 01/02/16 at 14:31; Status DC Propofol 230 mg 230 mg STK-MED ONCE IV ; Start 01/02/16 at 16:51; Stop 01/02/16 at 16:52; Status DC Sodium Chloride (NS 1000 ml Inj) 1,000 ml @ 0 mls/hr Q0M IV ; Start 01/03/16 at 10:15; Stop 01/17/16 at 17:30; Status DC Ranitidine HCl (Zantac Liq) 150 mg Q12HR PO Last administered on 01/17/16at 07: 39; Start 01/04/16 at 09:00; Stop 01/17/16 at 15:23; Status DC Enoxaparin Sodium 90 mg 90 mg Q12HR SQ Last administered on 01/11/16at 10:01; Start 01/04/16 at 09:00; Stop 01/11/16 at 12:35; Status DC Sodium Chloride (NS 500 ml Inj) 500 ml @ 0 mls/hr BOLUS ONCE IV Last administered on 01/03/16at 22:57; Start 01/03/16 at 23:00; Stop 01/03/16 at 23:01 ; Status DC Insulin Aspart (NovoLOG SUPPLEMENTAL SCALE) 1 Q6HR SQ Last administered on at 12:00; Start 01/04/16 at 12:00; Stop 03/24/16 at 13:58; Status DC Potassium Chloride (KCl 40 Meq/30 ml Liq) 40 meq Q4H NG Last administered on at 16:21; Start 01/04/16 at 13:00; Stop 01/04/16 at 17:01; Status DC Warfarin Sodium 5 mg 5 mg DAILY@1600 PO Last administered on 01/09/16at 17:21; Start 01/04/16 at 16:00; Stop 01/10/16 at 10:06; Status DC Pharmacy Profile Note (Coumadin Consult Pharmacy) 0 ml @ 0 mls/hr UNSCH XX ; Start 01/04/16 at 12:30 Insulin Detemir (Levemir Inj) 10 units Q12HR SQ Last administered on 01/05/16at 08:00; Start 01/04/16 at 21:00; Stop 01/05/16 at 08:42; Status DC Insulin Detemir (Levemir Inj) 5 units NOW ONCE SQ Last administered on at 13:28; Start 01/04/16 at 12:45; Stop 01/04/16 at 12:46; Status DC Albuterol/ Ipratropium (Duoneb Neb) 1 ampule Q4HR NEB PRN NEB dyspnea Last administered on 03/30/16at 09:02; Start 01/07/16 at 08:15 Warfarin Sodium (Coumadin) 7.5 mg ONCE ONCE PO Last administered on 01/07/16at 16:40; Start 01/07/16 at 16:00; Stop 01/07/16 at 16:01; Status DC Nystatin (Mycostatin Powder) 1 applic Q12HR TOPICAL Last administered on at 09:00; Start 01/08/16 at 21:00 Ipratropium Cranks (Atrovent Neb) 0.5 mg TID NEB NEB Last administered on 02/20at 13:17; Start 01/08/16 at 20:00; Stop 02/21/16 at 17:52; Status DC Warfarin Sodium (Coumadin) 5 mg DAILY@1600 PO Last administered on 01/11/16at 14 :26; Start 01/11/16 at 16:00; Stop 01/12/16 at 09:45; Status DC Warfarin Sodium (Coumadin) 6 mg ONCE PO Last administered on 01/10/16at 17:10; Start 01/10/16 at 16:00; Stop 01/10/16 at 21:00; Status DC Metoprolol Tartrate (Lopressor) 50 mg Q12HR GT Last administered on 01/11/16at 10:02; Start 01/10/16 at 11:00; Stop 01/11/16 at 12:30; Status DC Metoprolol Tartrate (Lopressor) 50 mg TID GT Last administered on 01/14/16at 08: 24; Start 01/11/16 at 13:00; Stop 01/14/16 at 08:28; Status DC Insulin Detemir (Levemir Inj) 10 units HS SQ Last administered on 01/11/16at 22: 23; Start 01/11/16 at 21:00; Stop 01/12/16 at 11:47; Status DC Warfarin Sodium (Coumadin) 4 mg DAILY@16 PO ; Start 01/12/16 at 16:00; Stop at 16:00; Status DC Insulin Detemir (Levemir Inj) 20 units HS SQ Last administered on 01/13/16at 20: 26; Start 01/12/16 at 21:00; Stop 01/14/16 at 08:28; Status DC Warfarin Sodium (Coumadin) 2 mg DAILY@16 PO Last administered on 01/13/16at 17: 05; Start 01/12/16 at 16:00; Stop 01/14/16 at 11:23; Status DC Insulin Detemir (Levemir Inj) 22 units HS SQ Last administered on 01/14/16at 21: 37; Start 01/14/16 at 21:00; Stop 01/15/16 at 10:06; Status DC Metoprolol Tartrate (Lopressor) 75 mg TID GT Last administered on 03/10/16at 17: 43; Start 01/14/16 at 09:00; Stop 03/10/16 at 21:13; Status DC Miscellaneous (Pill Splitter) 1 ea UNSCH PRN OTHER SEE LABEL COMMENTS; Start at 08:30 Warfarin Sodium (Coumadin) 4 mg DAILY@1600 PO Last administered on 01/21/16at 16: 51; Start 01/14/16 at 16:00; Stop 01/23/16 at 09:29; Status DC Patient Medication Teaching (Coumadin Booklet) 1 ONCE ONCE XX ; Start 01/14/16 at 16:00; Stop 01/14/16 at 16:01; Status DC Insulin Detemir (Levemir Inj) 24 units HS SQ Last administered on 03/04/16at 21: 09; Start 01/15/16 at 21:00; Stop 03/05/16 at 11:17; Status DC Citalopram Hydrobromide (CeleXA) 20 mg DAILY PEG Last administered on at 08:01; Start 01/16/16 at 09:00; Stop 01/16/16 at 09:41; Status DC Sennosides (Senna Liq) 8.8 mg BID TUBE Last administered on 02/20/16at 08:32; Start 01/15/16 at 21:00; Stop 02/20/16 at 16:13; Status DC Gadodiamide 18 ml 18 ml STK-MED ONCE IV ; Start 01/16/16 at 20:40; Stop at 20:41; Status DC Sodium Chloride (NS 1000 ml Inj) 1,000 ml @ 125 mls/hr Q8H IV Last administered on 01/17/16at 15:11; Start 01/17/16 at 15:00; Stop 01/17/16 at 17:31 ; Status DC Ranitidine HCl 150 mg 150 mg Q24H PO Last administered on 04/04/16at 09:09; Start 01/18/16 at 09:00 Sodium Chloride 1,000 ml @ 75 mls/hr [id number] IV Last administered on at 05:22; Start 01/17/16 at 18:00; Stop 01/18/16 at 09:28; Status DC Sodium Chloride/ Sterile Water (Sodium Chloride 23.4% Inj/Sterile Water For Inj ) 1,009.625 ml @ 60 mls/hr [id number] IV Last administered on 01/21/16at 22:46; Start 01/18/16 at 11:00; Stop 01/22/16 at 10:09; Status DC Potassium Chloride (KCl) 40 meq ONCE ONCE PO ; Start 01/18/16 at 09:30; Stop at 09:31; Status DC Potassium Chloride (KCl 40 Meq/30 ml Liq) 40 meq ONCE ONCE TUBE Last administered on 01/18/16at 11:08; Start 01/18/16 at 11:00; Stop 01/18/16 at 11:01 ; Status DC Water (Free Water) 300 ml Q4HR TUBE Last administered on 01/19/16at 08:00; Start 01/18/16 at 12:00; Stop 01/19/16 at 10:43; Status DC Water (Free Water) 400 ml Q4HR TUBE Last administered on 04/04/16at 08:00; Start 01/19/16 at 12:00 Potassium Chloride (KCl 40 Meq/30 ml Liq) 40 meq ONCE ONCE NG Last administered on 01/19/16at 11:41; Start 01/19/16 at 11:00; Stop 01/19/16 at 11:01; Status DC Potassium Chloride 60 meq 60 meq ONCE ONCE PO/TUBE Last administered on at 13:30; Start 01/21/16 at 11:15; Stop 01/21/16 at 11:27; Status DC Sodium Chloride (1/2 NS 1000 ml Inj) 1,000 ml @ 30 mls/hr Q24H IV Last administered on 02/06/16at 11:26; Start 01/22/16 at 11:00; Stop 02/07/16 at 14:49 ; Status DC Warfarin Sodium (Coumadin) 3 mg DAILY@16 PO Last administered on 01/23/16at 17:19 ; Start 01/23/16 at 16:00; Stop 01/24/16 at 14:05; Status DC Warfarin Sodium (Coumadin) 3 mg DAILY@16 PO Last administered on 01/25/16at 15:59 ; Start 01/25/16 at 16:00; Stop 01/26/16 at 15:04; Status DC Warfarin Sodium (Coumadin) 4 mg ONCE@1600 ONCE PO Last administered on at 16:55; Start 01/24/16 at 16:00; Stop 01/24/16 at 16:01; Status DC Warfarin Sodium (Coumadin) 3 mg DAILY@16 PO ; Start 01/27/16 at 16:00; Stop 7/9/ 16 at 16:00; Status DC Warfarin Sodium (Coumadin) 4 mg ONCE@1600 ONCE PO Last administered on at 16:52; Start 01/26/16 at 16:00; Stop 01/26/16 at 16:01; Status DC Potassium Chloride (KCl 40 Meq/30 ml Liq) 80 meq ONCE ONCE PO Last administered on 01/27/16at 07:45; Start 01/27/16 at 07:45; Stop 01/27/16 at 08:10; Status DC Warfarin Sodium (Coumadin) 4 mg DAILY@16 PO Last administered on 02/02/16at 17: 22; Start 01/27/16 at 16:00; Stop 02/03/16 at 11:37; Status DC Acetic Acid (Acetic Acid 0.25% Irr Btl) 10 ml Q8HR IRRIGATION Last administered on 02/05/16at 06:00; Start 01/28/16 at 22:00; Stop 02/05/16 at 15:51 ; Status DC Warfarin Sodium 3 mg 3 mg DAILY@1600 PO Last administered on 02/11/16at 17:34; Start 02/03/16 at 16:00; Stop 02/12/16 at 12:45; Status DC Ceftriaxone Sodium/Sodium Chloride (Rocephin Inj/NS Inj) 100 ml @ 200 mls/hr Q24H IV Last administered on 02/10/16at 05:23; Start 02/05/16 at 06:30; Stop at 14:32; Status DC Acetic Acid (Acetic Acid 0.25% Irr Btl) 10 ml Q8HR IRRIGATION ; Start 02/05/16 at 16:00; Status Cancel Acetic Acid (Acetic Acid 0.25% Irr Btl) 10 ml Q8HR IRRIGATION Last administered on 04/04/16at 05:09; Start 02/05/16 at 16:00 Lactobacillus Acidophilus (Lactinex) 1 tab Q12HR PO Last administered on at 08:25; Start 02/10/16 at 21:00; Stop 02/12/16 at 16:05; Status DC Warfarin Sodium (Coumadin) 4 mg DAILY@1600 PO Last administered on 02/14/16at 15 :56; Start 02/12/16 at 16:00; Stop 02/15/16 at 10:17; Status DC Paroxetine HCl (Paxil Liq) 20 mg DAILY PEG Last administered on 02/25/16at 07:33 ; Start 02/16/16 at 09:00; Stop 02/25/16 at 10:36; Status DC Warfarin Sodium (Coumadin) 3 mg DAILY@1600 PO Last administered on 02/19/16at 16: 42; Start 02/15/16 at 16:00; Stop 02/20/16 at 08:50; Status DC Warfarin Sodium (Coumadin) 4 mg DAILY@16 PO Last administered on 02/21/16at 15:54 ; Start 02/20/16 at 16:00; Stop 02/22/16 at 08:46; Status DC Sennosides (Senna Liq) 8.8 mg DAILY TUBE Last administered on 04/04/16at 09:09 ; Start 02/21/16 at 09:00 Albuterol Sulfate (Albuterol Neb) 2.5 mg QID NEB INH Last administered on at 19:51; Start 02/21/16 at 20:00; Stop 02/25/16 at 20:00; Status DC Acetylcysteine (Mucomyst 10% Neb) 1 ml QID NEB NEB Last administered on at 16:32; Start 02/21/16 at 20:00; Stop 02/23/16 at 16:01; Status DC Warfarin Sodium (Coumadin) 3 mg DAILY@16 PO Last administered on 02/22/16at 15:59 ; Start 02/22/16 at 16:00; Stop 02/23/16 at 08:56; Status DC Warfarin Sodium (Coumadin) 3 mg DAILY@16 PO Last administered on 02/28/16at 16: 17; Start 02/24/16 at 16:00; Stop 02/29/16 at 10:04; Status DC Warfarin Sodium (Coumadin) 2 mg ONCE PO Last administered on 02/23/16at 16:22; Start 02/23/16 at 16:00; Stop 02/23/16 at 21:00; Status DC Paroxetine HCl (Paxil Liq) 20 mg DAILY@1900 PEG Last administered on 03/08/16at 18:11; Start 02/26/16 at 19:00; Stop 03/09/16 at 11:31; Status DC Warfarin Sodium (Coumadin) 3 mg DAILY@16 PO Last administered on 03/06/16at 16: 22; Start 03/01/16 at 16:00; Stop 03/09/16 at 10:30; Status DC Warfarin Sodium (Coumadin) 1 mg ONCE PO Last administered on 02/29/16at 17:28; Start 02/29/16 at 16:00; Stop 02/29/16 at 21:00; Status DC Insulin Detemir (Levemir Inj) 27 units HS SQ Last administered on 03/05/16at 20: 25; Start 03/05/16 at 21:00; Stop 03/06/16 at 10:03; Status DC Patient Medication Teaching (Coumadin Booklet) 1 ONCE ONCE XX Last administered on 03/05/16at 16:00; Start 03/05/16 at 16:00; Stop 03/05/16 at 16:01 ; Status DC Insulin Detemir (Levemir Inj) 30 units HS SQ Last administered on 03/21/16at 22: 32; Start 03/06/16 at 21:00; Stop 03/22/16 at 14:48; Status DC Trimethoprim/ Sulfamethoxazole (Bactrim 800-160 Mg/20 ml Liq) 20 ml Q12HR PO Last administered on 03/14/16at 08:01; Start 03/07/16 at 11:15; Stop 03/14/16 at 11:14; Status DC Lorazepam (Ativan Inj) 0.5 mg Q4H PRN IV PUSH seizures; Start 03/07/16 at 23:00 Metronidazole (Flagyl) 500 mg Q8H PO Last administered on 03/14/16at 15:51; Start 03/08/16 at 17:00; Stop 03/14/16 at 23:00; Status DC Warfarin Sodium (Coumadin) 2 mg DAILY@16 PO Last administered on 03/09/16at 17: 20; Start 03/09/16 at 16:00; Stop 03/10/16 at 10:33; Status DC Paroxetine HCl (Paxil) 20 mg DAILY@1900 PEG Last administered on 03/11/16at 17: 55; Start 03/09/16 at 19:00; Stop 03/12/16 at 08:31; Status DC Warfarin Sodium 3 mg 3 mg DAILY@16 PO Last administered on 04/03/16at 16:52; Start 03/10/16 at 16:00 Pharmacy Profile Note 0 ml @ 0 mls/hr UNSCH OTHER ; Start 03/10/16 at 14:15; Stop 03/18/16 at 11:33; Status DC Vancomycin HCl/ Sodium Chloride (Vancomycin Inj/ NS 500 ml Inj) 530 ml @ 265 mls/hr Q12H IV Last administered on 03/17/16at 16:26; Start 03/10/16 at 16:00; Stop 03/17/16 at 23:00; Status DC Miscellaneous Information SPECIFIC LAB TO BE ELISA... ONCE ONCE XX Last administered on 03/12/16at 04:45; Start 03/12/16 at 03:45; Stop 03/12/16 at 03:46 ; Status DC Metoprolol Tartrate (Lopressor) 75 mg Q8HR PO Last administered on 04/02/16at 13 :13; Start 03/10/16 at 22:00; Stop 04/02/16 at 17:31; Status DC Paroxetine HCl (Paxil Liq) 20 mg DAILY@1900 PEG Last administered on 04/03/16at 18:13; Start 03/12/16 at 19:00 Warfarin Sodium (Coumadin) 1 mg ONCE PO Last administered on 03/21/16at 16:24; Start 03/21/16 at 16:00; Stop 03/21/16 at 21:00; Status DC Warfarin Sodium (Coumadin) 1 mg ONCE PO Last administered on 03/22/16at 17:46; Start 03/22/16 at 16:00; Stop 03/22/16 at 21:00; Status DC Insulin Detemir (Levemir Inj) 32 units HS SQ Last administered on 03/22/16at 20: 18; Start 03/22/16 at 21:00; Stop 03/23/16 at 13:35; Status DC Diltiazem HCl (Cardizem Cd) 120 mg DAILY PO Last administered on 04/04/16at 09: 09; Start 03/22/16 at 16:00 Hyoscyamine Sulfate (Levsin Liq) 0.125 mg Q4H PRN PEG INCREASED SECRETIONS Last administered on 03/25/16at 18:23; Start 03/22/16 at 15:15 Warfarin Sodium (Coumadin) 2 mg ONCE ONCE PO Last administered on 03/23/16 17: 26; Start 03/23/16 at 16:00; Stop 03/23/16 at 16:01; Status DC Insulin Detemir (Levemir Inj) 34 units HS SQ Last administered on 03/23/16at 20: 01; Start 03/23/16 at 21:00; Stop 03/24/16 at 13:53; Status DC Insulin Detemir (Levemir Inj) 35 units HS SQ Last administered on 04/03/16at 20: 56; Start 03/24/16 at 21:00 Insulin Aspart (NovoLOG SUPPLEMENTAL SCALE) 1 ACHS SLIDING SCALE SQ Last administered on 04/03/16at 20:57; Start 03/24/16 at 16:00 Warfarin Sodium (Coumadin) 1 mg ONCE ONCE PO Last administered on 03/30/16at 16 :59; Start 03/30/16 at 16:00; Stop 03/30/16 at 16:01; Status DC Potassium Chloride (KCl 40 Meq/30 ml Liq) 40 meq ONCE ONCE NG Last administered on 03/31/16at 21:28; Start 03/31/16 at 18:30; Stop 03/31/16 at 18:31 ; Status DC Potassium Bicarb/ Potassium Chloride (K-Lyte Cl Eff) 25 meq ONCE ONCE PEG Last administered on 04/02/16at 12:01; Start 04/02/16 at 13:00; Stop 04/02/16 at 13:01; Status DC Metoprolol Tartrate (Lopressor) 75 mg BID PO Last administered on 04/04/16at 09: 09; Start 04/02/16 at 21:00 Date of Insertion: Mar 07, 2016 A/P Assessment and Plan A/P 60-year-old male with: CVA (cerebral vascular accident): 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 Significant residual cognitive deficit. -Nonverbal at this time; appears to be in a locked in state. -Continue Keppra and Coumadin- Palliative care following. Monitor Keppra level periodically. - evaluated by neurology; continue Keppra and coumadin. GI/Nutrition: Previous PEG tube exchanged by GI at bedside 03/30/2016. dietary reconsulted to assess caloric needs. Respiratory failure: Secondary to CVA. Patient is status post tracheostomy. Continue pulmonary toilet and neb treatments as needed. Pulmonary following. - Levsin PRN secretions. Depression: Continue Paxil. A-fib: continue Lopressor, cardizem, warfarin with INR/PT monitoring. Echocardiogram completed in November shows preserved EF. Pharmacy assisting with Coumadin dosing to keep therapeutic. UTI: Resolved. Urine culture with Klebsiella on 01/31 and repeat on 03/06 negative. Arevalo replaced on 03/07. Coccyx pressure ulcer: Plastic surgery and Wound care nurse input appreciated and treatment per protocol; repositioning Q2-3H; Test Consultant consult History of Non-Hodgkin lymphoma: s/p brain biopsy on December 13, by Neurosurgery, Dr. Marin, Pathology consistent with acute infarct without evidence of lymphoma -Seen by Oncology, Dr. Whyte, who has signed off for current admission. DM: Hemoglobin A1c is 7.0. Continue Levemir with sliding scale insulin- monitor and adjust the regimen as needed. Pneumonia with MRSA: patient having fevers 02/27-03/08, Blood cultures on 03/03 grew gram-negative rods in 1 out of 4 bottles, repeat blood cultures 03/06 negative. Sputum culture 03/08 with MRSA. Infectious disease consulted, Bactrim and Flagyl completed 03/14, Vanco completed 03/17. recurrent fever- ID consulted; will follow the cultures- no antibiotics for now- mild hypokalemia; will replace as needed. DVT prophylaxis: on Coumadin. INR therapeutic Discharge Planning dc planning to SNF-no funding- SSI pending. Medardo Au MD Apr 04, 2016 12:24
--- NOTE | 2016-04-04 13:23 | HHI.IDPN ---
Note Infectious Disease Note Patient is more awake. No fever. Not verbal. Urine analysis was unremarkable. sputum culture pending. Has trach collar. Light yellow sputum occasional but mostly clear. Has lopez catheter. This 60-year-old male was admitted to the hospital on December 20 with altered mental status. He was eventually found to have a CVA. He was recently diagnosed with stage III non-Hodgkin's lymphoma about a year ago. The patient was intubated and he underwent tracheostomy and feeding tube placement. He was diagnosed with an acute stroke. PAST MEDICAL HISTORY 1. Hypertension. 2. Stage III non-Hodgkin's lymphoma. 3. Diabetes mellitus. 4. Paroxysmal atrial fibrillation. 5. Brain biopsy in Nov, 2015. 6. History of left arm surgery. ALLERGIES NO KNOWN DRUG ALLERGIES. ANTIBIOTICS: None. SOCIAL HISTORY . Positive tobacco use. No alcohol use. No illicit drugs. FAMILY HISTORY Unable to obtain. OBJECTIVE: Vital Signs Date Time Temp Pulse Resp B/P Pulse Ox O2 Delivery O2 Flow Rate FiO2 04/04/16 11:50 98.2 90 14 110/74 96 04/04/16 09:56 98 04/04/16 07:43 98.3 102 14 122/81 98 04/04/16 06:50 99 T-Piece 6.00 21 Humidified 04/04/16 04:00 97.1 102 18 128/79 96 04/03/16 23:52 96.7 85 18 119/74 100 04/03/16 22:00 T-Piece 6.00 21 Humidified 04/03/16 21:43 100 T-piece 21 04/03/16 21:43 100 T-piece 6.00 21 04/03/16 20:00 94 04/03/16 20:00 97.0 107 18 135/79 94 04/03/16 16:08 99.9 90 22 118/74 99 Vital Signs Date Time Temp Pulse Resp B/P Pulse Ox O2 Delivery O2 Flow Rate FiO2 04/03/16 12:06 97.8 84 20 103/67 99 04/03/16 09:18 97 T-piece 6.00 21 04/03/16 08:30 100.4 103 22 125/68 97 04/03/16 07:45 103 04/03/16 07:00 98 T-Piece 6.00 21 Humidified 04/03/16 04:00 97.1 99 16 111/69 100 04/03/16 00:00 96.6 86 16 110/69 100 04/02/16 21:44 96 T-piece 6.00 21 04/02/16 21:44 96 T-piece 6.00 21 04/02/16 20:00 98.3 103 15 117/71 100 04/02/16 16:56 96 6.00 28 04/02/16 16:33 98.3 89 22 100/60 99 04/02/16 16:19 97 T-piece 5.00 21 Laboratory Tests Test 04/04/16 09:11 White Blood Count 6.2 TH/MM3 Red Blood Count 3.90 MIL/MM3 Hemoglobin 9.5 GM/DL Hematocrit 28.5 % Mean Corpuscular Volume 73.1 FL Mean Corpuscular Hemoglobin 24.3 PG Mean Corpuscular Hemoglobin 33.2 % Concent Red Cell Distribution Width 20.0 % Platelet Count 234 TH/MM3 Mean Platelet Volume 8.7 FL Hematology Comments Laboratory Tests Test 04/04/16 09:11 Sodium Level 133 MEQ/L Potassium Level 3.4 MEQ/L Chloride Level 94 MEQ/L Carbon Dioxide Level 27.4 MEQ/L Anion Gap 12 MEQ/L Blood Urea Nitrogen 11 MG/DL Creatinine 0.51 MG/DL Estimat Glomerular Filtration 166 ML/MIN Rate Random Glucose 154 MG/DL Calcium Level 8.5 MG/DL Microbiology Date/Time Procedure Status Source Growth 04/03/16 17:20 Gram Stain - Final Resulted Sputum Endotracheal 04/03/16 17:20 Sputum Culture Resulted Sputum Endotracheal Pending 04/03/16 21:30 Aerobic Blood Culture - Preliminary Resulted Blood Peripheral NO GROWTH IN 1 DAY 04/03/16 21:30 Anaerobic Blood Culture - Preliminary Resulted Blood Peripheral NO GROWTH IN 1 DAY 04/03/16 21:35 Aerobic Blood Culture - Preliminary Resulted Blood Peripheral NO GROWTH IN 1 DAY 04/03/16 21:35 Anaerobic Blood Culture - Preliminary Resulted Blood Peripheral NO GROWTH IN 1 DAY IMAGING: Chest X-Ray 03/13/16 0000 Signed Impressions: Service Date/Time: Sunday, March 13, 2016 06:21 - CONCLUSION: Stable chest Wellington West MD Head Magnetic Resonance Angiography 03/05/16 0000 Signed Impressions: Service Date/Time: Saturday, March 05, 2016 09:26 - CONCLUSION: Persistent high-grade subtotal occlusive stenotic lesions in the distal right vertebral artery and proximal basilar artery with significant improvement in flow and recanalization following initial presentation of thrombosis. Stable interstitial circulation without significant stenosis. 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 There is decreasing restricted diffusion and increasing loss of volume characteristic of a subacute to chronic infarct. No evidence of acute infarct, acute hemorrhage mass or edema. Ernesto Kulkarni MD Head CT 01/16/16 0000 Signed Impressions: Service Date/Time: Saturday, January 16, 2016 10:51 - CONCLUSION: No extensive low density in the brainstem colin more prominent in the right the left extending into the right middle cerebellar peduncle consistent with brainstem infarct nonhemorrhagic acute Wellington West MD Abdomen X-Ray 01/14/16 0000 Signed Impressions: Service Date/Time: Thursday, January 14, 2016 10:19 - CONCLUSION: Moderate stool; otherwise, negative. 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 No evidence of carotid stenosis. Glen Zamora MD Head/Brain Mag Res Venography 12/22/15 0000 Signed Impressions: Service Date/Time: Tuesday, December 22, 2015 09:22 - CONCLUSION: Normal MRV. Jonel Jones Jr., MD PHYSICAL EXAMINATION GENERAL: No acute distress. Awake. HEENT: The sclerae are nonicteric. No erythema. Oropharynx - moist mucosa visible. NECK: Supple without adenopathy. LUNGS: Diminished breath sounds. Basilar rhonchi. HEART: Regular rate and rhythm without murmurs, rubs or gallops. ABDOMEN: Bowel sounds present, soft, no tenderness appreciated. BACK: Deep tunnelling sacrum ulcer which has bloody drainage. EXTREMITIES: No clubbing, cyanosis or edema. NEUROLOGIC: Unable to assess. SKIN: No rash. IMPRESSION 1. Fever. Questionable etiology. Low grade periodic fever subsided. . 2. CVA. 3. Post tracheostomy. 4. Sacral wound. RECOMMENDATIONS 1. Monitor sputum and blood culture. 2. Withhold antibiotics unless hi grade fever. 3. Monitor the temp. 4. Sacral wound dressing per wound care. Please monitor temp and call if fever recurs. Carlos Liu MD Apr 04, 2016 13:23
[2016-04-04] MEDS: WARFARIN SOD 3 MG TAB PO SCH (14:41)
[2016-04-04] MEDS: PARoxetine HCL SUSP 20 MG/10 ML UDC PEG SCH ×2 (18:33→21:24)
[2016-04-04] MEDS: INSULIN DETEMIR 100 UNITS/ML VIAL SQ SCH (21:00)
[2016-04-05] VITALS (10 sets, daily range): BP systolic 116–144; BP diastolic 68–77; PULSE 93–120; RESP 18; TEMP 97.7–100.2; O2SAT 95–98
[2016-04-05] MEDS: FREE WATER TUBE SCH ×6 (04:00→20:00)
[2016-04-05] MEDS: ACETIC ACID 0.25% SOLN 1000 ML IRR BTL IRRIGATION SCH ×3 (05:28→21:52)
[2016-04-05] MEDS: INSULIN ASPART SUPPLEMENTAL SCALE SQ SCH ×4 (06:52→21:00)
[2016-04-05 07:56] LABS: HEMATOCRIT 30.2 % (39.0-51.0)
[2016-04-05 08:02] LABS: REVIEW FLAG FINAL
[2016-04-05 08:10] LABS: INTERNATIONAL NORMALIZED RATIO 2.4 RATIO; PROTHROMBIN TIME - PATIENT 26.4 SEC (9.8-11.4)
[2016-04-05] MEDS: DILTIAZEM-CD 120 MG CAP ER PO SCH (08:58)
[2016-04-05] MEDS: METOPROLOL TARTRATE 50 MG TAB PO SCH ×2 (08:58→21:45)
[2016-04-05] MEDS: levETIRAcetam 500 MG/5 ML UDC TUBE SCH ×2 (08:58→21:45)
[2016-04-05] MEDS: RANITIDINE HCL SYRUP 150 MG/10 ML UDC PO SCH (08:58)
[2016-04-05] MEDS: NYSTATIN 100,000 U/GM PWD 15 GM BTL TOPICAL SCH ×2 (08:59→21:00)
[2016-04-05] MEDS: SENNOSIDES SYRUP 8.8 MG/5 ML CUP TUBE SCH (08:59)
--- NOTE | 2016-04-05 11:28 | HHI.PR ---
Subjective Remarks no fever spike. in no acute distress. d/w the RN; had some blood oozing from the wounds on the back. Objective Vitals Vital Signs Date Time Temp Pulse Resp B/P Pulse Ox O2 Delivery O2 Flow Rate FiO2 04/05/16 08:19 120 04/05/16 08:00 99.4 118 18 144/77 95 04/05/16 07:41 T-Piece 6.00 21 Humidified 04/05/16 04:00 97.7 99 18 124/75 98 04/05/16 02:29 99 04/05/16 00:19 98.4 93 18 124/73 96 04/04/16 21:52 97 T-piece 21 04/04/16 21:52 97 T-piece 21 04/04/16 20:00 T-Piece 6.00 21 Humidified 04/04/16 20:00 96.9 115 20 124/71 97 04/04/16 19:00 102 04/04/16 15:47 99.7 112 14 114/73 98 04/04/16 11:50 98.2 90 14 110/74 96 I/O 04/04/16 04/04/16 04/04/16 04/05/16 04/05/16 04/05/16 07:00 15:00 23:00 07:00 15:00 23:00 Intake Total 1200 ml 1032 ml 0 ml Output Total 1700 ml 850 ml 625 ml Balance -500 ml 182 ml -625 ml 0 ml IV Total 0 ml Tube Feeding 400 ml 1032 ml Other 800 ml Output Urine Total 1700 ml 850 ml 625 ml Bladder Scan Volume Amount 392 ml # Bowel Movements 1 1 Result Diagram: 04/05/16 0735 04/04/16 0911 Imaging Last Impressions Chest X-Ray 03/13/16 0000 Signed Impressions: Service Date/Time: Sunday, March 13, 2016 06:21 - CONCLUSION: Stable chest Wellington West MD Head Magnetic Resonance Angiography 03/05/16 0000 Signed Impressions: Service Date/Time: Saturday, March 05, 2016 09:26 - CONCLUSION: Persistent high-grade subtotal occlusive stenotic lesions in the distal right vertebral artery and proximal basilar artery with significant improvement in flow and recanalization following initial presentation of thrombosis. Stable interstitial circulation without significant stenosis. 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 There is decreasing restricted diffusion and increasing loss of volume characteristic of a subacute to chronic infarct. No evidence of acute infarct, acute hemorrhage mass or edema. Ernesto Kulkarni MD Head CT 01/16/16 0000 Signed Impressions: Service Date/Time: Saturday, January 16, 2016 10:51 - CONCLUSION: No extensive low density in the brainstem colin more prominent in the right the left extending into the right middle cerebellar peduncle consistent with brainstem infarct nonhemorrhagic acute Wellington West MD Abdomen X-Ray 01/14/16 0000 Signed Impressions: Service Date/Time: Thursday, January 14, 2016 10:19 - CONCLUSION: Moderate stool; otherwise, negative. 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 No evidence of carotid stenosis. Glen Zamora MD Head/Brain Mag Res Venography 12/22/15 0000 Signed Impressions: Service Date/Time: Tuesday, December 22, 2015 09:22 - CONCLUSION: Normal MRV. Jonel Jones Jr., MD Objective Remarks GENERAL: on Trach- in no apparent distress. Neck; trach in place CARDIOVASCULAR: Regular rate and regular rhythm without murmurs, gallops, or rubs. RESPIRATORY: Clear to auscultation. Breath sounds equal bilaterally. No wheezes , rales, or rhonchi. GASTROINTESTINAL: Abdomen soft, non-tender,distended. hypoactive bowel sounds-PEG in place MUSCULOSKELETAL: Extremities without clubbing, cyanosis, or edema. NEURO: opens the eyes to verbal stimuli Procedures 01/02/16 PEG placement 01/02/16 tracheostomy Medications and IVs Current Medications IV Flush (NS Flush) 2 ml UNSCH PRN IVF FLUSH AFTER USING IV ACCESS Last administered on 03/20/16at 20:50; Start 12/21/15 at 06:00 Ondansetron HCl (Zofran Inj) 4 mg STK-MED ONCE .ROUTE ; Start 12/21/15 at 06:22; Stop 12/21/15 at 06:23; Status DC Ondansetron HCl (Zofran Inj) 4 mg ONCE ONCE IV PUSH Last administered on at 06:43; Start 12/21/15 at 06:30; Stop 12/21/15 at 06:31; Status DC Diltiazem HCl 20 mg 20 mg ONCE ONCE IV Last administered on 12/21/15at 06:42; Start 12/21/15 at 06:30; Stop 12/21/15 at 06:31; Status DC Diltiazem HCl/ Sodium Chloride (Cardizem Inj/NS Inj) 125 ml @ 0 mls/hr TITRATE IV Last administered on 12/21/15at 06:47; Start 12/21/15 at 06:30; Stop 12/21/15 at 13:00; Status DC Acetaminophen (Tylenol) 650 mg ONCE ONCE PO ; Start 12/21/15 at 06:45; Stop 12/20 at 06:46; Status DC Lorazepam (Ativan Inj) 1 mg ONCE ONCE IV PUSH Last administered on 12/21/15at 07 :22; Start 12/21/15 at 07:15; Stop 12/21/15 at 07:16; Status DC Etomidate (Amidate Inj) 40 mg STK-MED ONCE .ROUTE Last administered on at 08:17; Start 12/21/15 at 07:37; Stop 12/21/15 at 07:38; Status DC Succinylcholine Chloride 200 mg 200 mg STK-MED ONCE .ROUTE Last administered on 12/21/15at 08:18; Start 12/21/15 at 07:37; Stop 12/21/15 at 07:38; Status DC Propofol (Diprivan 1000 Mg/100ml Inj) 100 ml @ As Directed STK-MED ONCE .ROUTE Last administered on 12/21/15at 08:19; Start 12/21/15 at 07:46; Stop 12/21/15 at 07:47; Status DC Propofol (Diprivan 1000 Mg/100ml Inj) search Sets for Drip. NOW PRN IV SEDATION Last administered on 12/22/15at 06:25; Start 12/21/15 at 08:30; Stop 12/28 at 15:43; Status DC Gadodiamide (Omniscan Pf Inj) 18 ml STK-MED ONCE IV Last administered on at 10:11; Start 12/21/15 at 10:11; Stop 12/21/15 at 10:12; Status DC Pantoprazole Sodium (Protonix Inj) 40 mg DAILY IV Last administered on at 07:39; Start 12/21/15 at 13:00; Stop 01/03/16 at 10:10; Status DC Albuterol/ Ipratropium (Duoneb Neb) 1 ampule Q6HR NEB INH Last administered on 12/25/15at 07:51; Start 12/21/15 at 13:00; Stop 12/25/15 at 13:00; Status DC Miscellaneous Information 1 [id number] Last administered on 12/21/15at 13:00; Start 12/21/15 at 13:00; Stop 01/12/16 at 11:47; Status DC Chlorhexidine Gluconate (Chlorhexidine 2% Cloth) 3 pack Taper DAILY@04 TOP Last administered on 01/11/16at 04:10; Start 12/22/15 at 04:00; Stop 01/12/16 at 11:47; Status DC Chlorhexidine Gluconate 3 pack 3 pack UNSCH PRN TOP HYGIENIC CARE; Start at 13:00; Stop 01/12/16 at 11:47; Status DC Sodium Chloride (NS 1000 ml Inj) 1,000 ml @ 75 mls/hr [id number] IV Last administered on 12/22/15at 17:00; Start 12/21/15 at 13:00; Stop 12/22/15 at 19:01; Status DC Dextrose (D50w (Vial) Inj) 25 ml UNSCH PRN IV PUSH HYPOGLYCEMIA-SEE COMMENTS; Start 12/21/15 at 13:00 Glucagon (Glucagon Inj) 1 mg UNSCH PRN OTHER HYPOGLYCEMIA-SEE COMMENTS; Start 12/21/15 at 13:00 Insulin Human Regular (NovoLIN R SUPPLEMENTAL SCALE) 1 Q6H SQ Last administered on 01/04/16at 06:31; Start 12/21/15 at 13:00; Stop 01/04/16 at 10:05 ; Status DC Levetriacetam (Keppra) 500 mg Q12HR PO Last administered on 12/27/15at 09:00; Start 12/21/15 at 13:45; Stop 12/27/15 at 09:44; Status DC Heparin Sodium (Porcine) (Heparin Inj) 5,000 units BID SQ Last administered on 12/22/15 20:52; Start 12/21/15 at 21:00; Stop 12/23/15 at 08:32; Status DC Warfarin Sodium (Coumadin) 7.5 mg ONCE ONCE PO Last administered on 12/21/15at 21:43; Start 12/21/15 at 21:00; Stop 12/21/15 at 21:01; Status DC Warfarin Sodium (Coumadin) 5 mg DAILY@16 PO Last administered on 12/23/15at 16:00 ; Start 12/22/15 at 16:00; Stop 12/26/15 at 09:29; Status DC Patient Medication Teaching (Coumadin Booklet) 1 ONCE ONCE XX Last administered on 12/21/15at 20:15; Start 12/21/15 at 20:15; Stop 12/21/15 at 20:16; Status DC Chlorhexidine Gluconate (Peridex 0.12% Liq) 15 ml BID@08,20 MT Last administered on 01/12/16at 08:00; Start 12/22/15 at 20:00; Stop 01/12/16 at 11:47 ; Status DC Gadodiamide 20 ml 20 ml STK-MED ONCE IV Last administered on 12/22/15at 09:55; Start 12/22/15 at 09:55; Stop 12/22/15 at 09:56; Status DC Pharmacy Profile Note ml @ 0 mls/hr UNSCH OTHER ; Start 12/22/15 at 11:00; Stop 12/22/15 at 19:43; Status DC Sodium Chloride 1,000 ml @ 50 mls/hr Q20H IV Last administered on 12/24/15at 20: 02; Start 12/22/15 at 18:44; Stop 12/25/15 at 11:52; Status DC Pharmacy Profile Note (Coumadin Consult Pharmacy) 0 ml @ 0 mls/hr UNSCH OTHER ; Start 12/22/15 at 19:45; Stop 01/04/16 at 12:25; Status DC Acetaminophen 650 mg 650 mg Q6H PRN PO TEMP > 100 Last administered on at 13:24; Start 12/23/15 at 02:45; Stop 12/30/15 at 15:04; Status DC Potassium Chloride 100 ml @ 50 mls/hr Q2H PRN IV For Potassium 2.8 - 3.2 mEq/L ; Start 12/23/15 at 08:30; Stop 01/09/16 at 11:14; Status DC Potassium Chloride (KCl 20 Meq Premix Inj) 100 ml @ 50 mls/hr Q2H PRN IV For Potassium 2.8 - 3.2 mEq/L; Start 12/23/15 at 08:30; Stop 01/09/16 at 11:14; Status DC Potassium Chloride 40 meq 40 meq UNSCH PRN PO/TUBE For Potassium 3.3 - 3.5 mEq/ L; Start 12/23/15 at 08:30; Stop 01/09/16 at 11:14; Status DC Potassium Chloride 100 ml @ 25 mls/hr UNSCH PRN IV For Potassium 3.3 - 3.5 mEq /L; Start 12/23/15 at 08:30; Stop 01/09/16 at 11:14; Status DC Potassium Chloride 100 ml @ 50 mls/hr Q2H PRN IV For Potassium 3.3 - 3.5 mEq/L ; Start 12/23/15 at 08:30; Stop 01/09/16 at 11:14; Status DC Magnesium Sulfate/ Sodium Chloride (Magnesium Sulfate Inj/NS Inj) 100 ml @ 50 mls/hr UNSCH PRN IV For Magnesium 0.9 - 1.1 mg/dL; Start 12/23/15 at 08:30; Stop 01/09/16 at 11:14; Status DC Magnesium Oxide 800 mg 800 mg UNSCH PRN PO For Magnesium 1.2 - 1.6 mg/dL; Start 12/23/15 at 08:30; Stop 01/09/16 at 11:14; Status DC Magnesium Sulfate/ Sodium Chloride (Magnesium Sulfate Inj/NS Inj) 100 ml @ 50 mls/hr UNSCH PRN IV For Magnesium 1.2 - 1.6 mg/dL; Start 12/23/15 at 08:30; Stop 01/09/16 at 11:14; Status DC Potassium Phosphate 2000 mg 2,000 mg Q4H PRN PO For Phosphorus < 2.5 mg/dL; Start 12/23/15 at 08:30; Stop 01/09/16 at 11:14; Status DC Sodium Phosphate/ Sodium Chloride (Sodium Phosphate Inj/NS 250 ml Inj) 250 ml @ 42 mls/hr UNSCH PRN IV For Phosphorus < 2.5 mg/dL; Start 12/23/15 at 08:30; Stop 01/09/16 at 11:14; Status DC Potassium Chloride (KCl 40 Meq/30 ml Liq) 40 meq UNSCH PRN PO/TUBE SEE LABEL COMMENTS; Start 12/23/15 at 08:30; Stop 01/09/16 at 11:14; Status DC Potassium Phosphate 2000 mg 2,000 mg UNSCH PRN PO/TUBE SEE LABEL COMMENTS; Start 12/23/15 at 08:30; Stop 01/09/16 at 11:14; Status DC Potassium Phosphate 30 mmol/ Sodium Chloride 260 ml @ 42 mls/hr UNSCH PRN IV SEE LABEL COMMENTS; Start 12/23/15 at 08:30; Stop 01/09/16 at 11:14; Status DC Sodium Chloride 1,000 ml @ 75 mls/hr [id number] IV ; Start 12/23/15 at 08:30; Stop 12/23/15 at 08:30; Status DC Piperacillin Sod/ Tazobactam Sod 50 ml @ 100 mls/hr Q6H IV Last administered on 12/30/15at 10:02; Start 12/23/15 at 10:00; Stop 12/30/15 at 14:50; Status DC Vancomycin HCl/ Sodium Chloride (Vancomycin Inj/ NS 250 ml Inj) 250 ml @ 250 mls/hr Q12H IV Last administered on 12/29/15at 09:01; Start 12/24/15 at 08:45; Stop 12/29/15 at 15:33; Status DC Warfarin Sodium (Coumadin) 4 mg DAILY@16 PO Last administered on 12/28/15at 16:00 ; Start 12/26/15 at 16:00; Stop 01/04/16 at 12:25; Status DC Levetriacetam (Keppra Liq) 500 mg Q12HR TUBE Last administered on 04/05/16at 08 :58; Start 12/27/15 at 21:00 Docusate Sodium (Colace Liq) 100 mg Q12HR TUBE Last administered on 01/15/16at 09:01; Start 12/27/15 at 21:00; Status Hold Sennosides (Senna Liq) 8.8 mg DAILY TUBE Last administered on 01/15/16at 09:01 ; Start 12/27/15 at 17:00; Stop 01/15/16 at 20:37; Status DC Bisacodyl (Dulcolax Supp) 10 mg ONCE ONCE RECTAL ; Start 12/27/15 at 16:15; Stop 12/27/15 at 16:15; Status DC Albuterol/ Ipratropium (Duoneb Neb) 1 ampule Q4HR NEB PRN NEB RESPIRATORY DISTRESS Last administered on 12/29/15at 12:17; Start 12/27/15 at 22:00; Stop at 08:16; Status DC Bisacodyl (Dulcolax Supp) 10 mg ONCE ONCE RECTAL ; Start 12/28/15 at 12:00; Stop 12/28/15 at 12:01; Status DC Sodium Chloride (Sodium Chloride) 1 gm BID TUBE Last administered on 12/29/15at 09:02; Start 12/28/15 at 21:00; Stop 12/29/15 at 15:43; Status DC Lactulose (Lactulose Liq) 30 ml DAILY TUBE Last administered on 12/29/15at 09:02 ; Start 12/28/15 at 20:30; Stop 12/29/15 at 15:43; Status DC Levofloxacin (Levaquin) 750 mg DAILY@16 TUBE ; Start 12/29/15 at 16:00; Stop 05/05 at 16:00; Status DC Sodium Chloride (Sodium Chloride) 1 gm DAILY TUBE Last administered on at 07:29; Start 12/30/15 at 09:00; Stop 12/31/15 at 14:08; Status DC Water 200 ml 200 ml Q6HR G-TUBE Last administered on 12/31/15at 04:19; Start 06/05 at 14:45; Stop 12/31/15 at 07:31; Status DC Ceftriaxone Sodium/Sodium Chloride (Rocephin Inj/NS Inj) 100 ml @ 200 mls/hr Q12H IV Last administered on 01/03/16at 02:47; Start 12/30/15 at 15:00; Stop at 10:09; Status DC Acetaminophen (Tylenol 650 Mg/ 20 ml Liq) 650 mg Q6H PRN TUBE TEMP >100.4 Last administered on 04/03/16at 09:06; Start 12/30/15 at 15:15 Lactobacillus Acidophilus (Lactinex Pkt) 1 gm BID TUBE Last administered on at 09:00; Start 12/30/15 at 21:00; Stop 02/10/16 at 14:30; Status DC Enoxaparin Sodium (Lovenox Inj) 90 mg Q12H SQ Last administered on 01/01/16at 21 :57; Start 12/31/15 at 08:00; Stop 01/03/16 at 10:33; Status DC Water (Free Water) 100 ml Q12H G-TUBE ; Start 12/31/15 at 18:00; Stop 12/31/15 at 18:00; Status DC Acetaminophen/ Hydrocodone Bitart (Noble 5-325 Mg) 1 tab Q6H PRN PO PAIN Last administered on 03/26/16at 15:47; Start 12/31/15 at 15:00 Fentanyl Citrate (Sublimaze Inj) 25 mcg Q1H PRN IV PUSH BREAKTHROUGH PAIN; Start 12/31/15 at 15:00; Stop 03/06/16 at 10:03; Status DC Water (Free Water) 200 ml Q8H G-TUBE Last administered on 01/01/16at 17:55; Start 12/31/15 at 18:00; Stop 01/02/16 at 09:56; Status DC Sodium Chloride (Sodium Chloride) 1 gm BID TUBE Last administered on 01/03/16at 07:39; Start 12/31/15 at 21:00; Stop 01/03/16 at 09:08; Status DC Miscellaneous Information Hold Anticoagulation after midni... ONCE ONCE OTHER ; Start 01/01/16 at 10:15; Stop 01/01/16 at 10:29; Status DC Sodium Chloride (NS 1000 ml Inj) 1,000 ml @ 50 mls/hr Q20H IV Last administered on 01/02/16at 12:26; Start 01/01/16 at 18:00; Stop 01/03/16 at 10:07 ; Status DC Midazolam HCl (Versed Inj) 5 mg STK-MED ONCE .ROUTE ; Start 01/02/16 at 12:47; Stop 01/02/16 at 12:48; Status DC Vecuronium Acton (Norcuron 10 Mg Inj) 10 mg STK-MED ONCE .ROUTE ; Start at 12:47; Stop 01/02/16 at 12:48; Status DC Fentanyl Citrate (Sublimaze Inj) 250 mcg ONCE ONCE IV PUSH Last administered on 01/02/16at 15:00; Start 01/02/16 at 15:00; Stop 01/02/16 at 15:01; Status DC Midazolam HCl (Versed Inj) 10 mg ONCE ONCE IV PUSH Last administered on at 15:00; Start 01/02/16 at 15:00; Stop 01/02/16 at 15:01; Status DC Rocuronium Acton (Zemuron Inj) 100 mg BOLUS ONCE IV Last administered on at 15:00; Start 01/02/16 at 15:00; Stop 01/02/16 at 15:01; Status DC Ketamine HCl (Ketalar Inj) 500 mg STK-MED ONCE .ROUTE ; Start 01/02/16 at 14:30 ; Stop 01/02/16 at 14:31; Status DC Propofol 230 mg 230 mg STK-MED ONCE IV ; Start 01/02/16 at 16:51; Stop 01/02/16 at 16:52; Status DC Sodium Chloride (NS 1000 ml Inj) 1,000 ml @ 0 mls/hr Q0M IV ; Start 01/03/16 at 10:15; Stop 01/17/16 at 17:30; Status DC Ranitidine HCl (Zantac Liq) 150 mg Q12HR PO Last administered on 01/17/16at 07: 39; Start 01/04/16 at 09:00; Stop 01/17/16 at 15:23; Status DC Enoxaparin Sodium 90 mg 90 mg Q12HR SQ Last administered on 01/11/16at 10:01; Start 01/04/16 at 09:00; Stop 01/11/16 at 12:35; Status DC Sodium Chloride (NS 500 ml Inj) 500 ml @ 0 mls/hr BOLUS ONCE IV Last administered on 01/03/16at 22:57; Start 01/03/16 at 23:00; Stop 01/03/16 at 23:01 ; Status DC Insulin Aspart (NovoLOG SUPPLEMENTAL SCALE) 1 Q6HR SQ Last administered on at 12:00; Start 01/04/16 at 12:00; Stop 03/24/16 at 13:58; Status DC Potassium Chloride (KCl 40 Meq/30 ml Liq) 40 meq Q4H NG Last administered on at 16:21; Start 01/04/16 at 13:00; Stop 01/04/16 at 17:01; Status DC Warfarin Sodium 5 mg 5 mg DAILY@1600 PO Last administered on 01/09/16at 17:21; Start 01/04/16 at 16:00; Stop 01/10/16 at 10:06; Status DC Pharmacy Profile Note (Coumadin Consult Pharmacy) 0 ml @ 0 mls/hr UNSCH XX ; Start 01/04/16 at 12:30 Insulin Detemir (Levemir Inj) 10 units Q12HR SQ Last administered on 01/05/16at 08:00; Start 01/04/16 at 21:00; Stop 01/05/16 at 08:42; Status DC Insulin Detemir (Levemir Inj) 5 units NOW ONCE SQ Last administered on at 13:28; Start 01/04/16 at 12:45; Stop 01/04/16 at 12:46; Status DC Albuterol/ Ipratropium (Duoneb Neb) 1 ampule Q4HR NEB PRN NEB dyspnea Last administered on 03/30/16at 09:02; Start 01/07/16 at 08:15 Warfarin Sodium (Coumadin) 7.5 mg ONCE ONCE PO Last administered on 01/07/16at 16:40; Start 01/07/16 at 16:00; Stop 01/07/16 at 16:01; Status DC Nystatin (Mycostatin Powder) 1 applic Q12HR TOPICAL Last administered on at 08:59; Start 01/08/16 at 21:00 Ipratropium Acton (Atrovent Neb) 0.5 mg TID NEB NEB Last administered on 02/20at 13:17; Start 01/08/16 at 20:00; Stop 02/21/16 at 17:52; Status DC Warfarin Sodium (Coumadin) 5 mg DAILY@1600 PO Last administered on 01/11/16at 14 :26; Start 01/11/16 at 16:00; Stop 01/12/16 at 09:45; Status DC Warfarin Sodium (Coumadin) 6 mg ONCE PO Last administered on 01/10/16at 17:10; Start 01/10/16 at 16:00; Stop 01/10/16 at 21:00; Status DC Metoprolol Tartrate (Lopressor) 50 mg Q12HR GT Last administered on 01/11/16at 10:02; Start 01/10/16 at 11:00; Stop 01/11/16 at 12:30; Status DC Metoprolol Tartrate (Lopressor) 50 mg TID GT Last administered on 01/14/16at 08: 24; Start 01/11/16 at 13:00; Stop 01/14/16 at 08:28; Status DC Insulin Detemir (Levemir Inj) 10 units HS SQ Last administered on 01/11/16at 22: 23; Start 01/11/16 at 21:00; Stop 01/12/16 at 11:47; Status DC Warfarin Sodium (Coumadin) 4 mg DAILY@16 PO ; Start 01/12/16 at 16:00; Stop at 16:00; Status DC Insulin Detemir (Levemir Inj) 20 units HS SQ Last administered on 01/13/16at 20: 26; Start 01/12/16 at 21:00; Stop 01/14/16 at 08:28; Status DC Warfarin Sodium (Coumadin) 2 mg DAILY@16 PO Last administered on 01/13/16at 17: 05; Start 01/12/16 at 16:00; Stop 01/14/16 at 11:23; Status DC Insulin Detemir (Levemir Inj) 22 units HS SQ Last administered on 01/14/16at 21: 37; Start 01/14/16 at 21:00; Stop 01/15/16 at 10:06; Status DC Metoprolol Tartrate (Lopressor) 75 mg TID GT Last administered on 03/10/16at 17: 43; Start 01/14/16 at 09:00; Stop 03/10/16 at 21:13; Status DC Miscellaneous (Pill Splitter) 1 ea UNSCH PRN OTHER SEE LABEL COMMENTS; Start at 08:30 Warfarin Sodium (Coumadin) 4 mg DAILY@1600 PO Last administered on 01/21/16at 16: 51; Start 01/14/16 at 16:00; Stop 01/23/16 at 09:29; Status DC Patient Medication Teaching (Coumadin Booklet) 1 ONCE ONCE XX ; Start 01/14/16 at 16:00; Stop 01/14/16 at 16:01; Status DC Insulin Detemir (Levemir Inj) 24 units HS SQ Last administered on 03/04/16at 21: 09; Start 01/15/16 at 21:00; Stop 03/05/16 at 11:17; Status DC Citalopram Hydrobromide (CeleXA) 20 mg DAILY PEG Last administered on at 08:01; Start 01/16/16 at 09:00; Stop 01/16/16 at 09:41; Status DC Sennosides (Senna Liq) 8.8 mg BID TUBE Last administered on 02/20/16at 08:32; Start 01/15/16 at 21:00; Stop 02/20/16 at 16:13; Status DC Gadodiamide 18 ml 18 ml STK-MED ONCE IV ; Start 01/16/16 at 20:40; Stop at 20:41; Status DC Sodium Chloride (NS 1000 ml Inj) 1,000 ml @ 125 mls/hr Q8H IV Last administered on 01/17/16at 15:11; Start 01/17/16 at 15:00; Stop 01/17/16 at 17:31 ; Status DC Ranitidine HCl 150 mg 150 mg Q24H PO Last administered on 04/05/16at 08:58; Start 01/18/16 at 09:00 Sodium Chloride 1,000 ml @ 75 mls/hr [id number] IV Last administered on at 05:22; Start 01/17/16 at 18:00; Stop 01/18/16 at 09:28; Status DC Sodium Chloride/ Sterile Water (Sodium Chloride 23.4% Inj/Sterile Water For Inj ) 1,009.625 ml @ 60 mls/hr [id number] IV Last administered on 01/21/16at 22:46; Start 01/18/16 at 11:00; Stop 01/22/16 at 10:09; Status DC Potassium Chloride (KCl) 40 meq ONCE ONCE PO ; Start 01/18/16 at 09:30; Stop at 09:31; Status DC Potassium Chloride (KCl 40 Meq/30 ml Liq) 40 meq ONCE ONCE TUBE Last administered on 01/18/16at 11:08; Start 01/18/16 at 11:00; Stop 01/18/16 at 11:01 ; Status DC Water (Free Water) 300 ml Q4HR TUBE Last administered on 01/19/16at 08:00; Start 01/18/16 at 12:00; Stop 01/19/16 at 10:43; Status DC Water (Free Water) 400 ml Q4HR TUBE Last administered on 04/05/16at 08:00; Start 01/19/16 at 12:00 Potassium Chloride (KCl 40 Meq/30 ml Liq) 40 meq ONCE ONCE NG Last administered on 01/19/16at 11:41; Start 01/19/16 at 11:00; Stop 01/19/16 at 11:01; Status DC Potassium Chloride 60 meq 60 meq ONCE ONCE PO/TUBE Last administered on at 13:30; Start 01/21/16 at 11:15; Stop 01/21/16 at 11:27; Status DC Sodium Chloride (1/2 NS 1000 ml Inj) 1,000 ml @ 30 mls/hr Q24H IV Last administered on 02/06/16at 11:26; Start 01/22/16 at 11:00; Stop 02/07/16 at 14:49 ; Status DC Warfarin Sodium (Coumadin) 3 mg DAILY@16 PO Last administered on 01/23/16at 17:19 ; Start 01/23/16 at 16:00; Stop 01/24/16 at 14:05; Status DC Warfarin Sodium (Coumadin) 3 mg DAILY@16 PO Last administered on 01/25/16at 15:59 ; Start 01/25/16 at 16:00; Stop 01/26/16 at 15:04; Status DC Warfarin Sodium (Coumadin) 4 mg ONCE@1600 ONCE PO Last administered on at 16:55; Start 01/24/16 at 16:00; Stop 01/24/16 at 16:01; Status DC Warfarin Sodium (Coumadin) 3 mg DAILY@16 PO ; Start 01/27/16 at 16:00; Stop at 16:00; Status DC Warfarin Sodium (Coumadin) 4 mg ONCE@1600 ONCE PO Last administered on at 16:52; Start 01/26/16 at 16:00; Stop 01/26/16 at 16:01; Status DC Potassium Chloride (KCl 40 Meq/30 ml Liq) 80 meq ONCE ONCE PO Last administered on 01/27/16at 07:45; Start 01/27/16 at 07:45; Stop 01/27/16 at 08:10; Status DC Warfarin Sodium (Coumadin) 4 mg DAILY@16 PO Last administered on 02/02/16at 17: 22; Start 01/27/16 at 16:00; Stop 02/03/16 at 11:37; Status DC Acetic Acid (Acetic Acid 0.25% Irr Btl) 10 ml Q8HR IRRIGATION Last administered on 02/05/16at 06:00; Start 01/28/16 at 22:00; Stop 02/05/16 at 15:51 ; Status DC Warfarin Sodium 3 mg 3 mg DAILY@1600 PO Last administered on 02/11/16at 17:34; Start 02/03/16 at 16:00; Stop 02/12/16 at 12:45; Status DC Ceftriaxone Sodium/Sodium Chloride (Rocephin Inj/NS Inj) 100 ml @ 200 mls/hr Q24H IV Last administered on 02/10/16at 05:23; Start 02/05/16 at 06:30; Stop at 14:32; Status DC Acetic Acid (Acetic Acid 0.25% Irr Btl) 10 ml Q8HR IRRIGATION ; Start 02/05/16 at 16:00; Status Cancel Acetic Acid (Acetic Acid 0.25% Irr Btl) 10 ml Q8HR IRRIGATION Last administered on 04/05/16at 05:28; Start 02/05/16 at 16:00 Lactobacillus Acidophilus (Lactinex) 1 tab Q12HR PO Last administered on at 08:25; Start 02/10/16 at 21:00; Stop 02/12/16 at 16:05; Status DC Warfarin Sodium (Coumadin) 4 mg DAILY@1600 PO Last administered on 02/14/16at 15 :56; Start 02/12/16 at 16:00; Stop 02/15/16 at 10:17; Status DC Paroxetine HCl (Paxil Liq) 20 mg DAILY PEG Last administered on 02/25/16at 07:33 ; Start 02/16/16 at 09:00; Stop 02/25/16 at 10:36; Status DC Warfarin Sodium (Coumadin) 3 mg DAILY@1600 PO Last administered on 02/19/16at 16: 42; Start 02/15/16 at 16:00; Stop 02/20/16 at 08:50; Status DC Warfarin Sodium (Coumadin) 4 mg DAILY@16 PO Last administered on 02/21/16at 15:54 ; Start 02/20/16 at 16:00; Stop 02/22/16 at 08:46; Status DC Sennosides (Senna Liq) 8.8 mg DAILY TUBE Last administered on 04/05/16at 08:59 ; Start 02/21/16 at 09:00 Albuterol Sulfate (Albuterol Neb) 2.5 mg QID NEB INH Last administered on at 19:51; Start 02/21/16 at 20:00; Stop 02/25/16 at 20:00; Status DC Acetylcysteine (Mucomyst 10% Neb) 1 ml QID NEB NEB Last administered on at 16:32; Start 02/21/16 at 20:00; Stop 02/23/16 at 16:01; Status DC Warfarin Sodium (Coumadin) 3 mg DAILY@16 PO Last administered on 02/22/16at 15:59 ; Start 02/22/16 at 16:00; Stop 02/23/16 at 08:56; Status DC Warfarin Sodium (Coumadin) 3 mg DAILY@16 PO Last administered on 02/28/16at 16: 17; Start 02/24/16 at 16:00; Stop 02/29/16 at 10:04; Status DC Warfarin Sodium (Coumadin) 2 mg ONCE PO Last administered on 02/23/16at 16:22; Start 02/23/16 at 16:00; Stop 02/23/16 at 21:00; Status DC Paroxetine HCl (Paxil Liq) 20 mg DAILY@1900 PEG Last administered on 03/08/16at 18:11; Start 02/26/16 at 19:00; Stop 03/09/16 at 11:31; Status DC Warfarin Sodium (Coumadin) 3 mg DAILY@16 PO Last administered on 03/06/16at 16: 22; Start 03/01/16 at 16:00; Stop 03/09/16 at 10:30; Status DC Warfarin Sodium (Coumadin) 1 mg ONCE PO Last administered on 02/29/16at 17:28; Start 02/29/16 at 16:00; Stop 02/29/16 at 21:00; Status DC Insulin Detemir (Levemir Inj) 27 units HS SQ Last administered on 03/05/16at 20: 25; Start 03/05/16 at 21:00; Stop 03/06/16 at 10:03; Status DC Patient Medication Teaching (Coumadin Booklet) 1 ONCE ONCE XX Last administered on 03/05/16at 16:00; Start 03/05/16 at 16:00; Stop 03/05/16 at 16:01 ; Status DC Insulin Detemir (Levemir Inj) 30 units HS SQ Last administered on 03/21/16at 22: 32; Start 03/06/16 at 21:00; Stop 03/22/16 at 14:48; Status DC Trimethoprim/ Sulfamethoxazole (Bactrim 800-160 Mg/20 ml Liq) 20 ml Q12HR PO Last administered on 03/14/16at 08:01; Start 03/07/16 at 11:15; Stop 03/14/16 at 11:14; Status DC Lorazepam (Ativan Inj) 0.5 mg Q4H PRN IV PUSH seizures; Start 03/07/16 at 23:00 Metronidazole (Flagyl) 500 mg Q8H PO Last administered on 03/14/16at 15:51; Start 03/08/16 at 17:00; Stop 03/14/16 at 23:00; Status DC Warfarin Sodium (Coumadin) 2 mg DAILY@16 PO Last administered on 03/09/16at 17: 20; Start 03/09/16 at 16:00; Stop 03/10/16 at 10:33; Status DC Paroxetine HCl (Paxil) 20 mg DAILY@1900 PEG Last administered on 03/11/16at 17: 55; Start 03/09/16 at 19:00; Stop 03/12/16 at 08:31; Status DC Warfarin Sodium 3 mg 3 mg DAILY@16 PO Last administered on 04/04/16at 14:41; Start 03/10/16 at 16:00 Pharmacy Profile Note 0 ml @ 0 mls/hr UNSCH OTHER ; Start 03/10/16 at 14:15; Stop 03/18/16 at 11:33; Status DC Vancomycin HCl/ Sodium Chloride (Vancomycin Inj/ NS 500 ml Inj) 530 ml @ 265 mls/hr Q12H IV Last administered on 03/17/16at 16:26; Start 03/10/16 at 16:00; Stop 03/17/16 at 23:00; Status DC Miscellaneous Information SPECIFIC LAB TO BE ELISA... ONCE ONCE XX Last administered on 03/12/16at 04:45; Start 03/12/16 at 03:45; Stop 03/12/16 at 03:46 ; Status DC Metoprolol Tartrate (Lopressor) 75 mg Q8HR PO Last administered on 04/02/16at 13 :13; Start 03/10/16 at 22:00; Stop 04/02/16 at 17:31; Status DC Paroxetine HCl (Paxil Liq) 20 mg DAILY@1900 PEG Last administered on 04/04/16at 21:24; Start 03/12/16 at 19:00 Warfarin Sodium (Coumadin) 1 mg ONCE PO Last administered on 03/21/16at 16:24; Start 03/21/16 at 16:00; Stop 03/21/16 at 21:00; Status DC Warfarin Sodium (Coumadin) 1 mg ONCE PO Last administered on 03/22/16at 17:46; Start 03/22/16 at 16:00; Stop 03/22/16 at 21:00; Status DC Insulin Detemir (Levemir Inj) 32 units HS SQ Last administered on 03/22/16at 20: 18; Start 03/22/16 at 21:00; Stop 03/23/16 at 13:35; Status DC Diltiazem HCl (Cardizem Cd) 120 mg DAILY PO Last administered on 04/05/16at 08: 58; Start 03/22/16 at 16:00 Hyoscyamine Sulfate (Levsin Liq) 0.125 mg Q4H PRN PEG INCREASED SECRETIONS Last administered on 03/25/16at 18:23; Start 03/22/16 at 15:15 Warfarin Sodium (Coumadin) 2 mg ONCE ONCE PO Last administered on 03/23/16at 17: 26; Start 03/23/16 at 16:00; Stop 03/23/16 at 16:01; Status DC Insulin Detemir (Levemir Inj) 34 units HS SQ Last administered on 03/23/16at 20: 01; Start 03/23/16 at 21:00; Stop 03/24/16 at 13:53; Status DC Insulin Detemir (Levemir Inj) 35 units HS SQ Last administered on 04/04/16at 21: 00; Start 03/24/16 at 21:00 Insulin Aspart (NovoLOG SUPPLEMENTAL SCALE) 1 ACHS SLIDING SCALE SQ Last administered on 04/05/16at 06:52; Start 03/24/16 at 16:00 Warfarin Sodium (Coumadin) 1 mg ONCE ONCE PO Last administered on 03/30/16at 16 :59; Start 03/30/16 at 16:00; Stop 03/30/16 at 16:01; Status DC Potassium Chloride (KCl 40 Meq/30 ml Liq) 40 meq ONCE ONCE NG Last administered on 03/31/16at 21:28; Start 03/31/16 at 18:30; Stop 03/31/16 at 18:31 ; Status DC Potassium Bicarb/ Potassium Chloride (K-Lyte Cl Eff) 25 meq ONCE ONCE PEG Last administered on 04/02/16at 12:01; Start 04/02/16 at 13:00; Stop 04/02/16 at 13:01; Status DC Metoprolol Tartrate (Lopressor) 75 mg BID PO Last administered on 04/05/16at 08: 58; Start 04/02/16 at 21:00 Potassium Bicarb/ Potassium Chloride (K-Lyte Cl Eff) 25 meq ONCE ONCE PEG Last administered on 04/04/16at 14:40; Start 04/04/16 at 12:30; Stop 04/04/16 at 12:31; Status DC Date of Insertion: Mar 07, 2016 A/P Assessment and Plan A/P 60-year-old male with: CVA (cerebral vascular accident): 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 Significant residual cognitive deficit. -Nonverbal at this time; appears to be in a locked in state. -Continue Keppra and Coumadin- Palliative care following. Monitor Keppra level periodically. - evaluated by neurology; continue Keppra and coumadin. GI/Nutrition: Previous PEG tube exchanged by GI at bedside 03/30/2016. dietary reconsulted to assess caloric needs. Respiratory failure: Secondary to CVA. Patient is status post tracheostomy. Continue pulmonary toilet and neb treatments as needed. Pulmonary following. - Levsin PRN secretions. Depression: Continue Paxil. A-fib: continue Lopressor, cardizem, warfarin with INR/PT monitoring. Echocardiogram completed in November shows preserved EF. Pharmacy assisting with Coumadin dosing to keep therapeutic. UTI: Resolved. Urine culture with Klebsiella on 01/31 and repeat on 03/06 negative. Arevalo replaced on 03/07. Coccyx pressure ulcer- now with oozing blood- d/w the wound care nurse; will consult plastic surgery. History of Non-Hodgkin lymphoma: s/p brain biopsy on December 13, by Neurosurgery, Dr. Marin, Pathology consistent with acute infarct without evidence of lymphoma -Seen by Oncology, Dr. Whyte, who has signed off for current admission. DM: Hemoglobin A1c is 7.0. Continue Levemir with sliding scale insulin- monitor and adjust the regimen as needed. Pneumonia with MRSA with recurrent fever- started on zyvox- ID is following. mild hypokalemia; replaced. DVT prophylaxis: on Coumadin. INR therapeutic Discharge Planning dc planning to SNF-no funding- SSI pending. Medardo Au MD Apr 05, 2016 11:28 DVT prophylaxis: on Coumadin. INR therapeutic Discharge Planning dc planning to SNF-no funding- SSI pending. Medardo Au MD Apr 05, 2016 11:28
--- NOTE | 2016-04-05 12:49 | HHI.HCPN ---
Reason for visit a. To assist with evaluation and management of symptoms including: dyspnea, encephalopathy, depression b. To assist medical decision maker(s) with: better understanding of current medical conditions; weighing benefits/burdens of medical treatment options; making medical treatment decisions. Subjective/Interval History Pt seen today to follow up with family for requested periodic updates Pt stable. PT/ST/OT continues to see pt- they note that he is not consistently following commands, answering questions or communicating. Is tracking therapist more. Having some movement of head and neck with max cuing, otherwise no movements noted. Has had some bloody oozing from sacral wound (on coumadin, INR therapeutic) . H& H stable. Plastic surgery reconsulted. 04/03 with low grade fever 100.4, BC, sputum culture obtained. BC neg to date, sputum + MRSA. ID following. 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 Pt seen in room mother, another family member present. They inform sig other in earlier. They have concerns RE "high heart rate" (currently reading 108 via bedside pulse oximetry) fever, and coccyx wound bleeding . Review with them HR not dangerously high, pt w low grade fever, review BC, sputum cult obtained 04/03 , ID following. Review plastic surgery reconsulted for wound, eval pending, may not require surgical intervention. Pt with eyes partially open. +coughing. Does not track examiner. Does not move extremities. Notified nsg of need for tracheal sx. Following exam call to sig other Leanne, voicemail left. History brought forward from initial consult by Rita MOCTEZUMA on 01/10/16: This 59-year-old patient was admitted on 12/21/15 via the ED for facial drooping. ED physician notes that patient and patients are poor historians, EMS reported the could not provide good timelines to them. Patient also reported headache, difficulty ambulating. He had known history of recent findings of mass in the brain. During ED course had deterioration of clinical condition and able to protect his airway, unable to follow commands patient was intubated and CT brain obtained. He was admitted for further evaluation and management to the ICU. [facility] was consulted and following patient. Pathology on recent brain biopsy (12/13) still pending. CLINICAL/HOSPITAL COURSE: * CT brain= no focal or acute intracranial hemorrhage. New area decreased density in left occipital lobe suggestive of recent nonhemorrhagic infarct, decreased density in previously noted right occipital lobe has increased in size * Brain MRI = new area of restricted diffusion within left occipital lobe suggesting acute infarct. Interval enlargement of the area of restricted diffusion within right occipital lobe suggesting probable extension of right occipital and started on. Underlying enhancement of right occipital lobe is slightly worse than the previous exam and nonspecific. Biopsy has been performed and results are pending. Tiny focal area of restricted diffusion within right cerebellar hemisphere consistent with probable acute/subacute lacunar infarct. Signal abnormality in the SWI sequence within the right occipital lobe suggesting some hemorrhage in biopsy bed. No midline shift or extra-axial fluid collections. * CXR= no acute cardiopulmonary disease * -Neurology consulted, ordered MRA to look for vertebrobasilar stenosis, echo done last admission notes normal EF with normal valves and normal left atrial size. EEG also ordered. MR venogram ordered. EEG= abnormal study consistent with her encephalopathy. MRV indicated basilar occlusion; neurology notes discussion with family regarding chemical code only, also notes discussion regarding risks associated with the anticoagulates, was discussed with radiologist/INR recommended not helpful to extract basilar clot as this could result in patient's . It was felt the colin was infarcted. Further neurology notes "he could be locked in", is acting as if colin is infarcted. * Oncology known to patient also consulted for non-Hodgkin's lymphoma: Dr Whyte documents that there was no evidence of residual or recurrent disease on CT scans of chest, abdomen, pelvis done in October and November of this year. Pathology was still pending, had been sent to [facility] for second opinion. No acute oncology interventions recommended at that time, will follow. * 6/5 - 6/7 febrile. CPAP trials. Remains on vent off of sedation. Withdrawing to pain. Repeat brain MRI= evolving brainstem stroke. Neurology notes extensive discussion with family, notes discussion the patient is locked in but fully aware, family would like to see help patient does over the next 3 months. 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 Biopsy brain lesion appears consistent with acute infarct no lymphoma. Family desires ongoing aggressive measures, will proceed with tracheostomy. Sputum culture positive sensitive Klebsiella. * 01/01 tracheostomy, PEG tube placement * 01/04 trach collar trials, alternating with T piece. Low-grade fever 100.5. CXR = mild bibasilar atelectasis. Neuro: Spontaneously opening eyes, looking up / down, directionally to commands. * 01/07 still "locked in " , transferred off ICU to regular floor. * 01/08 pulmonology consulted-not CXR clear no evidence of pulmonary infection. He may have some underlying COPD recommends continued aerosol treatments. Further notes long discussion with family at bedside regarding tracheostomy, long-term use of trach until patient able to protect his airway, no further recommendations. Palliative care consulted to assist with clarification of goals of treatment. Family/friend interactions Later received a call back from significant other Leanne, reviewed with her at length current clinical assessment, lack of neurological improvement, current treatments in place. She has questions regarding an EEG done in December or January though I am not able to find a recent EEG, and appears neurology has essentially signed off. She has concerns regarding patient mother following isolation policy, encourage her to discuss with memory nurse, community support professional. All questions answered, she is appreciative of update. . Advance Directives Living Will: Never completed Health Care Surrogate: Never completed Objective Vital Signs Date Time Temp Pulse Resp B/P Pulse Ox O2 Delivery O2 Flow Rate FiO2 04/05/16 10:00 96 T-piece 21 04/05/16 10:00 96 T-piece 21 04/05/16 08:19 120 04/05/16 08:00 99.4 118 18 144/77 95 04/05/16 07:41 T-Piece 6.00 21 Humidified 04/05/16 04:00 97.7 99 18 124/75 98 04/05/16 02:29 99 04/05/16 00:19 98.4 93 18 124/73 96 04/04/16 21:52 97 T-piece 21 04/04/16 21:52 97 T-piece 21 04/04/16 20:00 T-Piece 6.00 21 Humidified 04/04/16 20:00 96.9 115 20 124/71 97 04/04/16 19:00 102 04/04/16 15:47 99.7 112 14 114/73 98 Intake & Output 04/05/16 04/05/16 07:00 19:00 Intake Total 0 ml Output Total 625 ml Balance -625 ml 0 ml IV Total 0 ml Output Urine Total 625 ml Bladder Scan Volume Amount 392 ml Physical Exam CONSTITUTIONAL/GENERAL: This is an adequately nourished patient, minimally interactive TUBES/LINES/DRAINS: Arevalo catheter, PEG tube, tracheostomy, SCDs, heel protection boots, on specialty air bed SKIN: No jaundice, rashes, or lesions.No wounds seen anteriorly-- wound reported to coccyx with some oozing though I did not visualize. Skin temperature appropriate. Not diaphoretic. CARDIOVASCULAR: Regular rate and rhythm without murmurs. mildly tachycardic, 105 -108. Peripheral pulses symmetric. No peripheral edema. RESPIRATORY/CHEST: Tracheostomy midline, no symptoms of problems around site. Symmetric, unlabored respirations. + moist cough. T piece, 28% FiO2. clear breath sounds, some course upper airway sounds. Breath sounds equal bilaterally. GASTROINTESTINAL: Abdomen soft, no apparent tenderness, nondistended. No palpable masses. Bowel sounds normoactive.tube feed infusing via PEG. MUSCULOSKELETAL: Extremities without clubbing, cyanosis, or edema. No joint effusion noted. No mottling or clubbing.+ Muscle atrophy to all 4 extremities. NEUROLOGICAL: Eyes partially open. Does not track examiner. no response to stimuli. No movement of extremities, no following of commands. PSYCHIATRIC: Difficult to fully assess due to clinical condition. no evident anxiety . Diagnostic Tests Laboratory Laboratory Tests Test 04/03/16 04/03/16 04/04/16 04/05/16 07:48 15:30 09:11 07:35 Prothrombin Time 25.4 SEC 27.5 SEC 26.4 SEC (9.8-11.4) (9.8-11.4) (9.8-11.4) Prothromb Time International 2.3 RATIO 2.5 RATIO 2.4 RATIO Ratio Urine Color LIGHT-YELLOW (YELLW/STRAW) Urine Turbidity CLEAR (CLEAR) Urine pH 5.0 (5.0-8.5) Urine Specific [place] 1.008 (1.002-1.035) Urine Protein NEG mg/dL (NEG-TRACE) Urine Glucose (UA) NEG mg/dL (NEG) Urine Ketones NEG mg/dL (NEG) Urine Occult Blood NEG (NEG) Urine Nitrite NEG (NEG) Urine Bilirubin NEG (NEG) Urine Urobilinogen LESS THAN 2.0 MG/DL (LESS THAN 2.0) Urine Leukocyte Esterase NEG (NEG) Urine RBC LESS THAN 1 /hpf (0-3) Urine WBC LESS THAN 1 /hpf (0-5) Urine Bacteria /hpf (NONE) Urine Mucus FEW /lpf (OCC) Microscopic Urinalysis Comment CATH-CULT NOT IND White Blood Count 6.2 TH/MM3 (4.0-11.0) Red Blood Count 3.90 MIL/MM3 (4.50-5.90) Hemoglobin 9.5 GM/DL 9.6 GM/DL (13.0-17.0) (13.0-17.0) Hematocrit 28.5 % 30.2 % (39.0-51.0) (39.0-51.0) Mean Corpuscular Volume 73.1 FL (80.0-100.0) Mean Corpuscular Hemoglobin 24.3 PG (27.0-34.0) Mean Corpuscular Hemoglobin 33.2 % Concent (32.0-36.0) Red Cell Distribution Width 20.0 % (11.6-17.2) Platelet Count 234 TH/MM3 (150-450) Mean Platelet Volume 8.7 FL (7.0-11.0) Hematology Comments Sodium Level 133 MEQ/L (136-145) Potassium Level 3.4 MEQ/L (3.5-5.1) Chloride Level 94 MEQ/L (98-107) Carbon Dioxide Level 27.4 MEQ/L (21.0-32.0) Anion Gap 12 MEQ/L (5-15) Blood Urea Nitrogen 11 MG/DL (7-18) Creatinine 0.51 MG/DL (0.60-1.30) Estimat Glomerular Filtration 166 ML/MIN Rate (>89) Random Glucose 154 MG/DL (74-106) Calcium Level 8.5 MG/DL (8.5-10.1) Result Diagram: 04/05/16 0735 04/04/16 0911 Microbiology Microbiology Date/Time Procedure Status Source Growth 04/03/16 17:20 Gram Stain - Final Resulted Sputum Endotracheal 04/03/16 17:20 Sputum Culture - Preliminary Resulted S. Aureus Mrsa 04/03/16 21:30 Aerobic Blood Culture - Preliminary Resulted Blood Peripheral NO GROWTH IN 2 DAYS 04/03/16 21:30 Anaerobic Blood Culture - Preliminary Resulted Blood Peripheral NO GROWTH IN 2 DAYS 04/03/16 21:35 Aerobic Blood Culture - Preliminary Resulted Blood Peripheral NO GROWTH IN 2 DAYS 04/03/16 21:35 Anaerobic Blood Culture - Preliminary Resulted Blood Peripheral NO GROWTH IN 2 DAYS Imaging Last Impressions Chest X-Ray 03/13/16 0000 Signed Impressions: Service Date/Time: Sunday, March 13, 2016 06:21 - CONCLUSION: Stable chest Wellington West MD Head Magnetic Resonance Angiography 03/05/16 0000 Signed Impressions: Service Date/Time: Saturday, March 05, 2016 09:26 - CONCLUSION: Persistent high-grade subtotal occlusive stenotic lesions in the distal right vertebral artery and proximal basilar artery with significant improvement in flow and recanalization following initial presentation of thrombosis. Stable interstitial circulation without significant stenosis. 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 There is decreasing restricted diffusion and increasing loss of volume characteristic of a subacute to chronic infarct. No evidence of acute infarct, acute hemorrhage mass or edema. Ernesto Kulkarni MD Head CT 01/16/16 0000 Signed Impressions: Service Date/Time: Saturday, January 16, 2016 10:51 - CONCLUSION: No extensive low density in the brainstem colin more prominent in the right the left extending into the right middle cerebellar peduncle consistent with brainstem infarct nonhemorrhagic acute Wellington West MD Abdomen X-Ray 01/14/16 0000 Signed Impressions: Service Date/Time: Thursday, January 14, 2016 10:19 - CONCLUSION: Moderate stool; otherwise, negative. Octavio Ramírez MD FACR Neck Magnetic Resonance Angiography 12/22/15 7035 Signed Impressions: Service Date/Time: Tuesday, December 22, 2015 09:22 - CONCLUSION: Variant origin of the left vertebral artery from the aortic arch. No evidence of carotid stenosis. Glen Zamora MD Head/Brain Mag Res Venography 12/22/15 0000 Signed Impressions: Service Date/Time: Tuesday, December 22, 2015 09:22 - CONCLUSION: Normal MRV. Jonel Jones Jr., MD Procedures * 01/01 tracheostomy, PEG tube placement . 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; EEG indicates encephalopathy, neuro following patient felt to be in a "locked-in "state (2) Non-Hodgkin lymphoma Comment: -In remission status post chemotherapy completed May 2015 (3) Acute respiratory failure Comment: Pulmonology following, medical management (4) A-fib (5) Status post stereotactic brain biopsy (6) Brain lesion Comment: Status post biopsy November 2015; pathology consistent with acute infarct without evidence of lymphoma (7) DM (diabetes mellitus) Symptom Scale: (1) Dysphagia Comment: Status post significant CVA, has had PEG tube placed- no improvement per ongoing ST eval (2) Dyspnea Comment: Respiratory failure secondary to CVA, status post tracheostomy, pulmonary following (3) Encephalopathy Comment: Significant CVA, "locked-in" state -- though pt not noted with consistent attempts to communicate. ? vegetative (4) Malnutrition Comment: Status post PEG tube placement. tolerating TF. (5) Depression Comment: At risk for related to "locked in status", communication difficulties , situational, but would likely benefit from anti-depressant Pertinent Non-Medical Issues * Psychosocial:Mr. Flores is originally from [place]. He moved to the around 35 years ago, first to [place] and later to [place]. He is not legally but remains with his ex-, Leanne. They have been together for 31+ years and have three children together: Leanne, Gerald, and Ginny. Gerald is currently in [employer] for work. Mr. Flores has 2 brothers and 7 sisters. His father is of old age. His mother is alive and was living with the patient. Greatly enjoys his family. Retired. 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 * Spiritual: * Legal:Patient due to clinical condition is currently unable to participate in medical decision making. Not clear if or when he will regain this ability. Family does not believe he has completed advance directives. per [place] Statutes, medical proxy decision making would fall to the majority of adult children, as Mr. Flores is not legally . * Ethical issues impacting care: Important Contacts Leanne, daughter: [phone] Ginny, daughter: [phone] Gerald, son: currently in [facility] for work but has communication with his siblings. Leanne, ex-: [phone] Prognosis This patient has had 20 day hospital course thus far, admitted on 62 for a large brainstem infarct, bilateral occipital infarcts. He has subsequently had ongoing encephalopathy and severe communication limitations, neurology feels he is in a "locked-in "state. He has suffered from respiratory failure likely secondary to significant CVA. Appears he should be able to survive this acute hospitalization, however not clear when or if he will regain ability to communicate, based on current assessments patient will require long-term care placement. He will remain high risk for potential competition/setbacks due to immobile status including infections, DVT etc. . Code Status: Full Code Plan * GOALS: Very aggressive. See family conference component on initial consult for additional detail. Meeting In summary: Initially they had many questions regarding admission and biopsy which occurred in November, they ask about differentials and decision making leading to the biopsy, and have many concerns regarding that clinical course--advised that I could not speak to any of those questions or processes as I was not involved in his care and decision making at that time, recommend them to direct those specific questions to those initial providers which provided those services. Otherwise review of conditions, goals as detailed in "issues discussed". Family expresses that Mr. Flores did remarkably well following his chemotherapy for lymphoma just last year, and that he had been doing fine until recent issue in November. They endorsed that he is a fighter, that he is a very optimistic person, and that they are certain he is "in there "and would want to continue fighting for whatever recovery he might have." They have many questions regarding rehabilitation services and placement as well as financial coverage for these services, advised that case management could assist them with the various applications which already in process, but that any placement would depend on funding, or alternatively coleman placement which is up to any individual institution. They would like to maximize PT/OT/ST ongoing while here in the hospital. They also request courtesy consult of to follow him for pulmonary as he is known to the family through their adventist. * 03/26/16 -voicemail received from Leanne Colon, patient seen to follow-up in provide medical update. I have returned her call and left a return voicemail for her, she was not present during my exam. I did update briefly family present at bedside. * 04/05/16 - Pt seen to provide medical update to family, VM left for sig other Leanne. * CODE STATUSfull code * Symptoms: == Dysphagia--Status post significant CVA, has had PEG tube placed; no improvement per ST following == Dyspnea --Respiratory failure secondary to CVA, status post tracheostomy, pulmonary following; currently no apparent distress/ O2 sats / O2 requirements stable == Encephalopathy--Significant CVA, "locked-in" state; follow-up MRI with no significant changes; family endorses patient continues to have limited communication via blinks and eye motion-- does not consistently attempt to communicate w therapies, ? vegetative == Malnutrition--Status post PEG tube placement. tolerating TF; having bowel movements == depression/anxiety -- At risk for related to "locked in status", communication difficulties, situational, but would likely benefit from anti- depressant. Family reports tearful at times when they talk to him. prev. started on celexa, then d/c per family request. On Paxil per family request. previously tearful at times during exam. No distress observed or reported today , ? Pain versus emotional distress. Will cont to evaluate. == Pain: Tearful,? At times blinks/looks up for yes to pain per family, nursing // nursing to administer PRN [place]. Potential sources would include sacral wound, bedbound status. Last dose of [place] 03/26/16nursing informs that they use sparingly as family has concerns that too much will contribute to his lethargy/decreased alertness. We'll continue to evaluate. * Palliative care will continue to follow during hospital course as condition evolves, to assist patient/decision-maker with understanding of medical conditions, weighing benefits/burdens of treatment options, for clarification of goals of treatment. Additionally will assist with any symptoms of palliative concern Time Spent Total Floor Time (mins): 20 Attestation To help prompt me to consider important information that might be impacting today's encounter and assessment, information from prior notes written by myself or my colleagues may have been "brought forward" into today's note. My signature on this note, however, is an attestation that I personally performed the exam, history, and/or decision-making noted today, and, unless otherwise indicated, the interactions with patient, family, and staff as well as the review of records all occurred today. I also attest that the listed assessment and stated plan reflect my best clinical judgment today based on the combination of historical information, prior notes, and today's exam/ interactions. When time spent is documented, it refers only to time spent today by the signer, or if indicated, combined time spent today by collaborating physician/nurse practitioner. Tiara Colin Apr 05, 2016 12:48
[2016-04-05] MEDS: LINEZOLID 600 MG TAB PO SCH ×2 (15:00→21:45)
--- NOTE | 2016-04-05 15:08 | HHI.IDPN ---
Note Infectious Disease Note Patient is awake with eyes open. Temp of 100.2. Not verbal. Mostly celeste secretions via trach. Sputum culture has MRSA. Has trach collar. Light yellow sputum occasional but mostly clear. Has lopez catheter. This 60-year-old male was admitted to the hospital on December 20 with altered mental status. He was eventually found to have a CVA. He was recently diagnosed with stage III non-Hodgkin's lymphoma about a year ago. The patient was intubated and he underwent tracheostomy and feeding tube placement. He was diagnosed with an acute stroke. PAST MEDICAL HISTORY 1. Hypertension. 2. Stage III non-Hodgkin's lymphoma. 3. Diabetes mellitus. 4. Paroxysmal atrial fibrillation. 5. Brain biopsy in Nov, 2015. 6. History of left arm surgery. ALLERGIES NO KNOWN DRUG ALLERGIES. Current Medications Medications (Trade) Dose Ordered Sig/Junior Route PRN Reason Start Time Stop Time Status Last Admin Dose Admin IV Flush (NS Flush) 2 ml UNSCH PRN IVF FLUSH AFTER USING IV ACCESS 12/21/15 06:00 03/20/16 20:50 Dextrose (D50w (Vial) Inj) 25 ml UNSCH PRN IV PUSH HYPOGLYCEMIA-SEE COMMENTS 12/21/15 13:00 Glucagon (Glucagon Inj) 1 mg UNSCH PRN OTHER HYPOGLYCEMIA-SEE COMMENTS 12/21/15 13:00 Levetriacetam (Keppra Liq) 500 mg Q12HR TUBE 12/27/15 21:00 04/05/16 08:58 Docusate Sodium (Colace Liq) 100 mg Q12HR TUBE 12/27/15 21:00 Hold 01/15/16 09:01 Acetaminophen (Tylenol 650 Mg/ 20 ml Liq) 650 mg Q6H PRN TUBE TEMP >100.4 12/30/15 15:15 04/03/16 09:06 Acetaminophen/ Hydrocodone Bitart 1 tab 1 tab Q6H PRN PO PAIN 12/31/15 15:00 03/26/16 15:47 Pharmacy Profile Note (Coumadin Consult Pharmacy) 0 ml @ 0 mls/hr UNSCH XX 01/04/16 12:30 Nystatin (Mycostatin Powder) 1 applic Q12HR TOPICAL 01/08/16 21:00 04/05/16 08:59 Miscellaneous (Pill Splitter) 1 ea UNSCH PRN OTHER SEE LABEL COMMENTS 01/14/16 08:30 Ranitidine HCl (Zantac Liq) 150 mg Q24H PO 01/18/16 09:00 04/05/16 08:58 Water (Free Water) 400 ml Q4HR TUBE 01/19/16 12:00 04/05/16 12:00 Acetic Acid (Acetic Acid 0.25% Irr Btl) 10 ml Q8HR IRRIGATION 02/05/16 16:00 04/05/16 13:48 Sennosides (Senna Liq) 8.8 mg DAILY TUBE 02/21/16 09:00 04/05/16 08:59 Lorazepam (Ativan Inj) 0.5 mg Q4H PRN IV PUSH seizures 03/07/16 23:00 Warfarin Sodium (Coumadin) 3 mg DAILY@16 PO 03/10/16 16:00 04/04/16 14:41 Paroxetine HCl (Paxil Liq) 20 mg DAILY@1900 PEG 03/12/16 19:00 04/04/16 21:24 Diltiazem HCl (Cardizem Cd) 120 mg DAILY PO 03/22/16 16:00 04/05/16 08:58 Hyoscyamine Sulfate (Levsin Liq) 0.125 mg Q4H PRN PEG INCREASED SECRETIONS 03/22/16 15:15 03/25/16 18:23 Insulin Detemir (Levemir Inj) 35 units HS SQ 03/24/16 21:00 04/04/16 21:00 Metoprolol Tartrate (Lopressor) 75 mg BID PO 04/02/16 21:00 04/05/16 08:58 SOCIAL HISTORY . Positive tobacco use. No alcohol use. No illicit drugs. FAMILY HISTORY Unable to obtain. OBJECTIVE: Vital Signs Date Time Temp Pulse Resp B/P Pulse Ox O2 Delivery O2 Flow Rate FiO2 04/05/16 12:44 100.2 108 18 118/68 96 04/05/16 10:00 96 T-piece 21 04/05/16 10:00 96 T-piece 21 04/05/16 08:19 120 04/05/16 08:00 99.4 118 18 144/77 95 04/05/16 07:41 T-Piece 6.00 21 Humidified 04/05/16 04:00 97.7 99 18 124/75 98 04/05/16 02:29 99 04/05/16 00:19 98.4 93 18 124/73 96 04/04/16 21:52 97 T-piece 21 04/04/16 21:52 97 T-piece 21 04/04/16 20:00 T-Piece 6.00 21 Humidified 04/04/16 20:00 96.9 115 20 124/71 97 04/04/16 19:00 102 04/04/16 15:47 99.7 112 14 114/73 98 04/04/16 04/04/16 04/05/16 15:00 23:00 07:00 Intake Total 1032 ml Output Total 850 ml 625 ml Balance 182 ml -625 ml Tube Feeding 1032 ml Output Urine Total 850 ml 625 ml # Bowel Movements 1 Laboratory Tests Test 04/04/16 04/05/16 09:11 07:35 White Blood Count 6.2 TH/MM3 Red Blood Count 3.90 MIL/MM3 Hemoglobin 9.5 GM/DL 9.6 GM/DL Hematocrit 28.5 % 30.2 % Mean Corpuscular Volume 73.1 FL Mean Corpuscular Hemoglobin 24.3 PG Mean Corpuscular Hemoglobin 33.2 % Concent Red Cell Distribution Width 20.0 % Platelet Count 234 TH/MM3 Mean Platelet Volume 8.7 FL Hematology Comments Laboratory Tests Test 04/04/16 09:11 Sodium Level 133 MEQ/L Potassium Level 3.4 MEQ/L Chloride Level 94 MEQ/L Carbon Dioxide Level 27.4 MEQ/L Anion Gap 12 MEQ/L Blood Urea Nitrogen 11 MG/DL Creatinine 0.51 MG/DL Estimat Glomerular Filtration 166 ML/MIN Rate Random Glucose 154 MG/DL Calcium Level 8.5 MG/DL Microbiology Date/Time Procedure Status Source Growth 04/03/16 17:20 Gram Stain - Final Resulted Sputum Endotracheal 04/03/16 17:20 Sputum Culture - Preliminary Resulted S. Aureus Mrsa 04/03/16 21:30 Aerobic Blood Culture - Preliminary Resulted Blood Peripheral NO GROWTH IN 2 DAYS 04/03/16 21:30 Anaerobic Blood Culture - Preliminary Resulted Blood Peripheral NO GROWTH IN 2 DAYS 04/03/16 21:35 Aerobic Blood Culture - Preliminary Resulted Blood Peripheral NO GROWTH IN 2 DAYS 04/03/16 21:35 Anaerobic Blood Culture - Preliminary Resulted Blood Peripheral NO GROWTH IN 2 DAYS IMAGING: Chest X-Ray 03/13/16 0000 Signed Impressions: Service Date/Time: Sunday, March 13, 2016 06:21 - CONCLUSION: Stable chest Wellington West MD Head Magnetic Resonance Angiography 03/05/16 0000 Signed Impressions: Service Date/Time: Saturday, March 05, 2016 09:26 - CONCLUSION: Persistent high-grade subtotal occlusive stenotic lesions in the distal right vertebral artery and proximal basilar artery with significant improvement in flow and recanalization following initial presentation of thrombosis. Stable interstitial circulation without significant stenosis. 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 There is decreasing restricted diffusion and increasing loss of volume characteristic of a subacute to chronic infarct. No evidence of acute infarct, acute hemorrhage mass or edema. Ernesto Kulkarni MD Head CT 01/16/16 0000 Signed Impressions: Service Date/Time: Saturday, January 16, 2016 10:51 - CONCLUSION: No extensive low density in the brainstem colin more prominent in the right the left extending into the right middle cerebellar peduncle consistent with brainstem infarct nonhemorrhagic acute Wellington West MD Abdomen X-Ray 01/14/16 0000 Signed Impressions: Service Date/Time: Thursday, January 14, 2016 10:19 - CONCLUSION: Moderate stool; otherwise, negative. 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 No evidence of carotid stenosis. Glen Zamora MD Head/Brain Mag Res Venography 12/22/15 0000 Signed Impressions: Service Date/Time: Tuesday, December 22, 2015 09:22 - CONCLUSION: Normal MRV. Jonel Jones Jr., MD PHYSICAL EXAMINATION GENERAL: No acute distress. Awake. HEENT: The sclerae are nonicteric. No erythema. Oropharynx - moist mucosa visible. NECK: Supple without adenopathy. LUNGS: Coarse bilateral rhonchi. HEART: Regular rate and rhythm without murmurs, rubs or gallops. ABDOMEN: Bowel sounds present, soft, no tenderness appreciated. BACK: Deep tunnelling sacrum ulcer which has bloody drainage. EXTREMITIES: No clubbing, cyanosis or edema. NEUROLOGIC: Unable to assess. SKIN: No rash. IMPRESSION 1. Fever. Questionable etiology. Low grade periodic fever. MRSA in sputum. ? PNA. 2. CVA. 3. Post tracheostomy. 4. Sacral wound. RECOMMENDATIONS 1. Begin Zyvox for MRSA. 2. Monitor the temp. 3. Monitor Platelet count while on Zyvox. Carlos Liu MD Apr 05, 2016 15:08
[2016-04-05] MEDS: WARFARIN SOD 3 MG TAB PO SCH (16:00)
--- NOTE | 2016-04-05 20:08 | RADRPT ---
EXAM DATE/TIME: 04/05/2016 19:20 [facility] COMPARISON: CHEST SINGLE AP, March 13, 2016, 6:21. INDICATIONS : Evaluate lung status. MEDICAL HISTORY : Hypertension. Diabetes mellitus type II. Lymphoma. SURGICAL HISTORY : None. ENCOUNTER: Subsequent ACUITY: 1 week PAIN SCORE: Non-responsive. LOCATION: Bilateral chest FINDINGS: A single view of the chest demonstrates the lungs to be symmetrically aerated without evidence of mas s, infiltrate or effusion. The cardiomediastinal contours are unremarkable. Osseous structures are intact. Tracheostomy tube noted. CONCLUSION: Clear lungs. Jonel Jones Jr., MD on April 05, 2016 at 20:05 Board Certified Radiologist. This report was verified electronically.
[2016-04-05] MEDS: INSULIN DETEMIR 100 UNITS/ML VIAL SQ SCH (21:00)
[2016-04-06] VITALS (10 sets, daily range): BP systolic 103–129; BP diastolic 65–83; PULSE 76–117; RESP 18–20; TEMP 97.3–100.2; O2SAT 93–97
[2016-04-06] MEDS: FREE WATER TUBE SCH ×6 (04:00→20:00)
[2016-04-06] MEDS: ACETIC ACID 0.25% SOLN 1000 ML IRR BTL IRRIGATION SCH ×3 (06:00→23:02)
[2016-04-06] MEDS: INSULIN ASPART SUPPLEMENTAL SCALE SQ SCH ×4 (06:13→21:58)
[2016-04-06 06:39] LABS: INTERNATIONAL NORMALIZED RATIO 2.1 RATIO; PROTHROMBIN TIME - PATIENT 23.2 SEC (9.8-11.4)
[2016-04-06] MEDS: RANITIDINE HCL SYRUP 150 MG/10 ML UDC PO SCH (09:00)
[2016-04-06] MEDS: SENNOSIDES SYRUP 8.8 MG/5 ML CUP TUBE SCH (09:00)
[2016-04-06] MEDS: NYSTATIN 100,000 U/GM PWD 15 GM BTL TOPICAL SCH ×2 (09:00→21:55)
[2016-04-06] MEDS: METOPROLOL TARTRATE 50 MG TAB PO SCH ×2 (09:38→21:54)
[2016-04-06] MEDS: DILTIAZEM-CD 120 MG CAP ER PO SCH (09:38)
[2016-04-06] MEDS: LINEZOLID 600 MG TAB PO SCH ×2 (09:38→22:07)
[2016-04-06] MEDS: levETIRAcetam 500 MG/5 ML UDC TUBE SCH ×2 (09:38→21:53)
--- NOTE | 2016-04-06 13:25 | HHI.PR ---
Subjective Remarks Low grade fevers last night. VSS. No acute concerns reported. Objective Vitals Vital Signs Date Time Temp Pulse Resp B/P Pulse Ox O2 Delivery O2 Flow Rate FiO2 04/06/16 12:16 96 T-piece 5.00 21 04/06/16 12:16 96 T-piece 5.00 21 04/06/16 12:00 97.6 98 20 113/69 94 04/06/16 08:00 98.1 95 20 129/83 94 04/06/16 07:41 111 04/06/16 04:59 100.2 112 19 103/65 94 04/06/16 00:28 100.1 97 19 109/70 97 04/05/16 20:51 96 T-piece 21 04/05/16 20:51 96 T-piece 21 04/05/16 19:15 T-Piece 6.00 21 Humidified 04/05/16 18:05 98.1 119 18 116/73 98 04/05/16 16:07 98.5 109 18 118/68 95 I/O 04/05/16 04/05/16 04/05/16 04/06/16 04/06/16 04/06/16 07:00 15:00 23:00 07:00 15:00 23:00 Intake Total 0 ml Output Total 1150 ml 1350 ml Balance -1150 ml -1350 ml IV Total 0 ml Output Urine Total 1150 ml 1350 ml Bladder Scan Volume Amount 392 ml # Bowel Movements 1 Result Diagram: 04/05/16 0735 04/04/16 0911 Objective Remarks GENERAL: Obese male patient. SKIN: Warm and dry. HEAD: Normocephalic. EYES: No scleral icterus. No injection or drainage. NECK: trach in place. CARDIOVASCULAR: Regular rate and rhythm without murmurs, gallops, or rubs. RESPIRATORY: Breath sounds equal bilaterally. No accessory muscle use. GASTROINTESTINAL: Abdomen soft, non-tender, nondistended. EXTREMITIES: trace edema of hands. NEUROLOGICAL: Sleeping. 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 Significant residual cognitive deficit. -Nonverbal at this time; appears to be in a locked in state. -Continue Keppra and Coumadin- Palliative care following. Monitor Keppra level periodically. - evaluated by neurology; continue Keppra and coumadin. GI/Nutrition: Previous PEG tube exchanged by GI at bedside 03/30/2016. dietary reconsulted to assess caloric needs. Respiratory failure: Secondary to CVA. Patient is status post tracheostomy. Continue pulmonary toilet and neb treatments as needed. Pulmonary following. - Levsin PRN secretions. Depression: Continue Paxil. A-fib: continue Lopressor, cardizem, warfarin with INR/PT monitoring. Echocardiogram completed in November shows preserved EF. Pharmacy assisting with Coumadin dosing to keep therapeutic. UTI: Resolved. Urine culture with Klebsiella on 01/31 and repeat on 03/06 negative. Arevalo replaced on 03/07. Coccyx pressure ulcer- now with oozing blood- d/w the wound care nurse; will consult plastic surgery. History of Non-Hodgkin lymphoma: s/p brain biopsy on December 13, by Neurosurgery, Dr. Marin, Pathology consistent with acute infarct without evidence of lymphoma -Seen by Oncology, Dr. Whyte, who has signed off for current admission. DM: Hemoglobin A1c is 7.0. Continue Levemir with sliding scale insulin- monitor and adjust the regimen as needed. Pneumonia with MRSA with recurrent fever- started on zyvox- ID is following. mild hypokalemia; replaced. DVT prophylaxis: on Coumadin. INR therapeutic Problem Qualifiers (1) DM (diabetes mellitus): Qualified Code: E11.9 - Type 2 diabetes mellitus without complications Lena Gonzalez MD Apr 06, 2016 13:25
[2016-04-06] MEDS: RESP: ALBUTEROL 2.5 MG/IPRATROPIUM 0.5 MG NEB (PRN) NEB (16:00)
[2016-04-06] MEDS: WARFARIN SOD 3 MG TAB PO SCH (17:17)
[2016-04-06] MEDS: HYOSCYAMINE SOLN 0.125 MG/ML 15 ML BTL PEG PRN (21:54)
[2016-04-06] MEDS: INSULIN DETEMIR 100 UNITS/ML VIAL SQ SCH (21:54)
[2016-04-07] VITALS (10 sets, daily range): BP systolic 93–114; BP diastolic 55–74; PULSE 84–113; RESP 18–20; TEMP 97.9–100.5; O2SAT 95–100
[2016-04-07] MEDS: FREE WATER TUBE SCH ×6 (04:00→20:00)
[2016-04-07] MEDS: ACETIC ACID 0.25% SOLN 1000 ML IRR BTL IRRIGATION SCH ×3 (05:07→21:49)
[2016-04-07] MEDS: INSULIN ASPART SUPPLEMENTAL SCALE SQ SCH ×4 (06:14→21:47)
[2016-04-07 09:12] LABS: PROTHROMBIN TIME - PATIENT 21.6 SEC (9.8-11.4)
[2016-04-07] MEDS: RANITIDINE HCL SYRUP 150 MG/10 ML UDC PO SCH (09:43)
[2016-04-07] MEDS: LINEZOLID 600 MG TAB PO SCH ×2 (09:43→21:46)
[2016-04-07] MEDS: levETIRAcetam 500 MG/5 ML UDC TUBE SCH ×2 (09:43→21:47)
[2016-04-07] MEDS: SENNOSIDES SYRUP 8.8 MG/5 ML CUP TUBE SCH (09:43)
[2016-04-07] MEDS: DILTIAZEM-CD 120 MG CAP ER PO SCH (09:43)
[2016-04-07] MEDS: METOPROLOL TARTRATE 50 MG TAB PO SCH ×2 (09:43→21:46)
[2016-04-07] MEDS: NYSTATIN 100,000 U/GM PWD 15 GM BTL TOPICAL SCH ×2 (09:44→21:48)
--- NOTE | 2016-04-07 14:49 | HHI.PR ---
Subjective Remarks Low-grade fevers. No acute concerns per nurse. Objective Vitals Vital Signs Date Time Temp Pulse Resp B/P Pulse Ox O2 Delivery O2 Flow Rate FiO2 04/07/16 12:46 98.6 84 20 109/65 98 04/07/16 10:39 T-Piece 6.00 21 Humidified 04/07/16 09:52 100 T-piece 21 04/07/16 08:30 98.8 113 20 111/69 97 04/07/16 05:00 100.5 108 19 97/64 96 04/07/16 00:17 97.9 92 18 102/63 95 04/07/16 00:00 T-Piece 6.00 21 Humidified 04/06/16 21:25 96 T-piece 6.00 21 04/06/16 21:25 96 T-piece 21 04/06/16 21:00 112 04/06/16 20:14 98.4 117 18 117/76 96 04/06/16 16:00 97.3 76 20 104/70 96 04/06/16 16:00 93 T-piece 6.00 21 04/06/16 16:00 93 T-piece 6.00 21 I/O 04/06/16 04/06/16 04/06/16 04/07/16 04/07/16 04/07/16 07:00 15:00 23:00 07:00 15:00 23:00 Intake Total 0 ml Output Total 1350 ml 450 ml 1150 ml Balance -1350 ml -450 ml -1150 ml Intake Oral 0 ml Output Urine Total 1350 ml 450 ml 1150 ml # Bowel Movements 1 Result Diagram: 04/05/16 0735 04/04/16 0911 Objective Remarks GENERAL: Obese male patient. SKIN: Warm and dry. HEAD: Normocephalic. EYES: No scleral icterus. No injection or drainage. NECK: trach in place. CARDIOVASCULAR: Regular rate and rhythm without murmurs, gallops, or rubs. RESPIRATORY: Breath sounds equal bilaterally. No accessory muscle use. GASTROINTESTINAL: Abdomen soft, non-tender, nondistended. EXTREMITIES: trace edema of hands. NEUROLOGICAL: Awake, alert. Does not follow commands. 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 Significant residual cognitive deficit. -Nonverbal at this time; appears to be in a locked in state. -Continue Keppra and Coumadin- Palliative care following. Monitor Keppra level periodically. - evaluated by neurology; continue Keppra and coumadin. -Resume Paxil per family's request GI/Nutrition: Previous PEG tube exchanged by GI at bedside 03/30/2016. dietary reconsulted to assess caloric needs. Respiratory failure: Secondary to CVA. Patient is status post tracheostomy. Continue pulmonary toilet and neb treatments as needed. Pulmonary following. - Levsin PRN secretions. Depression: Continue Paxil. A-fib: continue Lopressor, cardizem, warfarin with INR/PT monitoring. Echocardiogram completed in November shows preserved EF. Pharmacy assisting with Coumadin dosing to keep therapeutic. UTI: Resolved. Urine culture with Klebsiella on 01/31 and repeat on 03/06 negative. Arevalo replaced on 03/07. Coccyx pressure ulcer- now with oozing blood- d/w the wound care nurse; will consult plastic surgery. History of Non-Hodgkin lymphoma: s/p brain biopsy on December 13, by Neurosurgery, Dr. Marin, Pathology consistent with acute infarct without evidence of lymphoma -Seen by Oncology, Dr. Whyte, who has signed off for current admission. DM: Hemoglobin A1c is 7.0. Continue Levemir with sliding scale insulin- monitor and adjust the regimen as needed. Fever with MRSA in the sputum, tracheobronchitis versus pneumonia. Chest x-ray 04/05 was clear. started on zyvox- ID is following. mild hypokalemia; replaced. DVT prophylaxis: on Coumadin. INR therapeutic Problem Qualifiers (1) DM (diabetes mellitus): Qualified Code: E11.9 - Type 2 diabetes mellitus without complications Lena Gonzalez MD Apr 07, 2016 14:49
[2016-04-07] MEDS: WARFARIN SOD 3 MG TAB PO SCH (17:04)
[2016-04-07] MEDS: HYOSCYAMINE SOLN 0.125 MG/ML 15 ML BTL PEG PRN ×2 (17:05→21:48)
[2016-04-07] MEDS: ACETAMINOPHEN/HYDROcodone 325 MG/5 MG TAB PO PRN (21:47)
[2016-04-07] MEDS: INSULIN DETEMIR 100 UNITS/ML VIAL SQ SCH (21:48)
[2016-04-08] VITALS (8 sets, daily range): BP systolic 100–124; BP diastolic 67–72; PULSE 88–108; RESP 18–24; TEMP 97–98.2; O2SAT 93–99
[2016-04-08] MEDS: FREE WATER TUBE SCH ×6 (04:00→23:08)
[2016-04-08] MEDS: ACETIC ACID 0.25% SOLN 1000 ML IRR BTL IRRIGATION SCH ×3 (06:00→23:08)
[2016-04-08] MEDS: INSULIN ASPART SUPPLEMENTAL SCALE SQ SCH ×4 (06:01→23:07)
[2016-04-08] MEDS: NYSTATIN 100,000 U/GM PWD 15 GM BTL TOPICAL SCH ×2 (09:00→23:08)
[2016-04-08] MEDS: DILTIAZEM-CD 120 MG CAP ER PO SCH (09:18)
[2016-04-08] MEDS: HYOSCYAMINE SOLN 0.125 MG/ML 15 ML BTL PEG PRN (09:18)
[2016-04-08] MEDS: SENNOSIDES SYRUP 8.8 MG/5 ML CUP TUBE SCH (09:18)
[2016-04-08] MEDS: levETIRAcetam 500 MG/5 ML UDC TUBE SCH ×2 (09:18→23:07)
[2016-04-08] MEDS: RANITIDINE HCL SYRUP 150 MG/10 ML UDC PO SCH (09:18)
[2016-04-08] MEDS: LINEZOLID 600 MG TAB PO SCH ×2 (09:19→23:06)
[2016-04-08] MEDS: METOPROLOL TARTRATE 50 MG TAB PO SCH ×2 (09:29→23:07)
--- NOTE | 2016-04-08 11:50 | HHI.PR ---
Subjective Remarks Vital signs stable. Afebrile. Objective Vitals Vital Signs Date Time Temp Pulse Resp B/P Pulse Ox O2 Delivery O2 Flow Rate FiO2 04/08/16 08:06 97.4 108 24 113/67 98 04/08/16 04:02 97.8 101 18 116/67 97 04/08/16 00:33 97.0 88 18 104/72 94 04/07/16 23:40 18 04/07/16 21:45 105 04/07/16 21:45 T-Piece 6.00 21 Humidified 04/07/16 21:20 98 T-piece 5.00 21 04/07/16 21:20 98 T-piece 5.00 21 04/07/16 20:59 99.1 112 20 114/74 96 04/07/16 17:00 110/70 04/07/16 16:39 99.7 101 20 93/55 97 04/07/16 12:46 98.6 84 20 109/65 98 I/O 04/07/16 04/07/16 04/07/16 04/08/16 04/08/16 04/08/16 07:00 15:00 23:00 07:00 15:00 23:00 Output Total 1150 ml 900 ml 2200 ml Balance -1150 ml -900 ml -2200 ml Output Urine Total 1150 ml 900 ml 2200 ml # Bowel Movements 1 Result Diagram: 04/05/16 0735 04/04/16 0911 Objective Remarks GENERAL: Obese male patient. SKIN: Warm and dry. HEAD: Normocephalic. EYES: No scleral icterus. No injection or drainage. NECK: trach in place. CARDIOVASCULAR: Regular rate and rhythm without murmurs, gallops, or rubs. RESPIRATORY: Breath sounds equal bilaterally. No accessory muscle use. GASTROINTESTINAL: Abdomen soft, non-tender, nondistended. EXTREMITIES: trace edema of hands. NEUROLOGICAL: Awake, alert. Does not follow commands. 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 Significant residual cognitive deficit. -Nonverbal at this time; appears to be in a locked in state. -Continue Keppra and Coumadin- Palliative care following. Monitor Keppra level periodically. - evaluated by neurology; continue Keppra and coumadin. -Resume Paxil per family's request GI/Nutrition: Previous PEG tube exchanged by GI at bedside 03/30/2016. dietary reconsulted to assess caloric needs. Respiratory failure: Secondary to CVA. Patient is status post tracheostomy. Continue pulmonary toilet and neb treatments as needed. Pulmonary following. - Levsin PRN secretions. Depression: Continue Paxil. A-fib: continue Lopressor, cardizem, warfarin with INR/PT monitoring. Echocardiogram completed in November shows preserved EF. Pharmacy assisting with Coumadin dosing to keep therapeutic. UTI: Resolved. Urine culture with Klebsiella on 01/31 and repeat on 03/06 negative. Arevalo replaced on 03/07. Coccyx pressure ulcer- cont wound care. History of Non-Hodgkin lymphoma: s/p brain biopsy on December 13, by Neurosurgery, Dr. Marin, Pathology consistent with acute infarct without evidence of lymphoma -Seen by Oncology, Dr. Whyte, who has signed off for current admission. DM: Hemoglobin A1c is 7.0. Continue Levemir with sliding scale insulin- monitor and adjust the regimen as needed. Fever with MRSA in the sputum, tracheobronchitis versus pneumonia. Chest x-ray 04/05 was clear. started on zyvox- ID is following. mild hypokalemia; replaced. DVT prophylaxis: on Coumadin. INR therapeutic Problem Qualifiers (1) DM (diabetes mellitus): Qualified Code: E11.9 - Type 2 diabetes mellitus without complications Lena Gonzalez MD Apr 08, 2016 11:50 Lena Gonzalez MD Apr 08, 2016 11:50
--- NOTE | 2016-04-08 15:33 | HHI.IDPN ---
Note Infectious Disease Note Patient is in no distress. Resting comfortably. Temp lower. Not verbal. Mostly celeste secretions via trach. Sputum culture has MRSA. Has trach collar. Light yellow sputum occasional but mostly clear. Has lopez catheter with skip urine. This 60-year-old male was admitted to the hospital on December 20 with altered mental status. He was eventually found to have a CVA. He was recently diagnosed with stage III non-Hodgkin's lymphoma about a year ago. The patient was intubated and he underwent tracheostomy and feeding tube placement. He was diagnosed with an acute stroke. PAST MEDICAL HISTORY 1. Hypertension. 2. Stage III non-Hodgkin's lymphoma. 3. Diabetes mellitus. 4. Paroxysmal atrial fibrillation. 5. Brain biopsy in Nov, 2015. 6. History of left arm surgery. ALLERGIES NO KNOWN DRUG ALLERGIES. Current Medications Medications (Trade) Dose Ordered Sig/Junior Route PRN Reason Start Time Stop Time Status Last Admin Dose Admin IV Flush (NS Flush) 2 ml UNSCH PRN IVF FLUSH AFTER USING IV ACCESS 12/21/15 06:00 03/20/16 20:50 Dextrose (D50w (Vial) Inj) 25 ml UNSCH PRN IV PUSH HYPOGLYCEMIA-SEE COMMENTS 12/21/15 13:00 Glucagon (Glucagon Inj) 1 mg UNSCH PRN OTHER HYPOGLYCEMIA-SEE COMMENTS 12/21/15 13:00 Levetriacetam (Keppra Liq) 500 mg Q12HR TUBE 12/27/15 21:00 04/08/16 09:18 Docusate Sodium (Colace Liq) 100 mg Q12HR TUBE 12/27/15 21:00 Hold 01/15/16 09:01 Acetaminophen (Tylenol 650 Mg/ 20 ml Liq) 650 mg Q6H PRN TUBE TEMP >100.4 12/30/15 15:15 04/03/16 09:06 Acetaminophen/ Hydrocodone Bitart 1 tab 1 tab Q6H PRN PO PAIN 12/31/15 15:00 04/07/16 21:47 Pharmacy Profile Note (Coumadin Consult Pharmacy) 0 ml @ 0 mls/hr UNSCH XX 01/04/16 12:30 Nystatin (Mycostatin Powder) 1 applic Q12HR TOPICAL 01/08/16 21:00 04/08/16 09:00 Miscellaneous (Pill Splitter) 1 ea UNSCH PRN OTHER SEE LABEL COMMENTS 01/14/16 08:30 Ranitidine HCl (Zantac Liq) 150 mg Q24H PO 01/18/16 09:00 04/08/16 09:18 Water (Free Water) 400 ml Q4HR TUBE 01/19/16 12:00 04/08/16 12:00 Acetic Acid (Acetic Acid 0.25% Irr Btl) 10 ml Q8HR IRRIGATION 02/05/16 16:00 04/08/16 13:16 Sennosides (Senna Liq) 8.8 mg DAILY TUBE 02/21/16 09:00 04/08/16 09:18 Lorazepam (Ativan Inj) 0.5 mg Q4H PRN IV PUSH seizures 03/07/16 23:00 Warfarin Sodium (Coumadin) 3 mg DAILY@16 PO 03/10/16 16:00 04/07/16 17:04 Paroxetine HCl (Paxil Liq) 20 mg DAILY@1900 PEG 03/12/16 19:00 04/04/16 21:24 Diltiazem HCl (Cardizem Cd) 120 mg DAILY PO 03/22/16 16:00 04/08/16 09:18 Hyoscyamine Sulfate (Levsin Liq) 0.125 mg Q4H PRN PEG INCREASED SECRETIONS 03/22/16 15:15 04/08/16 09:18 Insulin Detemir (Levemir Inj) 35 units HS SQ 03/24/16 21:00 04/07/16 21:48 Metoprolol Tartrate (Lopressor) 75 mg BID PO 04/02/16 21:00 04/08/16 09:29 Linezolid (Zyvox) 600 mg Q12HR PO 04/05/16 15:00 04/08/16 09:19 SOCIAL HISTORY . Positive tobacco use. No alcohol use. No illicit drugs. FAMILY HISTORY Unable to obtain. OBJECTIVE: Vital Signs Date Time Temp Pulse Resp B/P Pulse Ox O2 Delivery O2 Flow Rate FiO2 04/08/16 12:16 T-piece 21 04/08/16 12:05 98.1 99 24 100/67 96 04/08/16 08:06 97.4 108 24 113/67 98 04/08/16 04:02 97.8 101 18 116/67 97 04/08/16 00:33 97.0 88 18 104/72 94 04/07/16 23:40 18 04/07/16 21:45 105 04/07/16 21:45 T-Piece 6.00 21 Humidified 04/07/16 21:20 98 T-piece 5.00 21 04/07/16 21:20 98 T-piece 5.00 21 04/07/16 20:59 99.1 112 20 114/74 96 04/07/16 17:00 110/70 04/07/16 16:39 99.7 101 20 93/55 97 04/07/16 04/07/16 04/08/16 15:00 23:00 07:00 Output Total 900 ml 2200 ml Balance -900 ml -2200 ml Output Urine Total 900 ml 2200 ml # Bowel Movements 1 Laboratory Tests Test 04/04/16 04/05/16 09:11 07:35 White Blood Count 6.2 TH/MM3 Red Blood Count 3.90 MIL/MM3 Hemoglobin 9.5 GM/DL 9.6 GM/DL Hematocrit 28.5 % 30.2 % Mean Corpuscular Volume 73.1 FL Mean Corpuscular Hemoglobin 24.3 PG Mean Corpuscular Hemoglobin 33.2 % Concent Red Cell Distribution Width 20.0 % Platelet Count 234 TH/MM3 Mean Platelet Volume 8.7 FL Hematology Comments Laboratory Tests Test 04/04/16 09:11 Sodium Level 133 MEQ/L Potassium Level 3.4 MEQ/L Chloride Level 94 MEQ/L Carbon Dioxide Level 27.4 MEQ/L Anion Gap 12 MEQ/L Blood Urea Nitrogen 11 MG/DL Creatinine 0.51 MG/DL Estimat Glomerular Filtration 166 ML/MIN Rate Random Glucose 154 MG/DL Calcium Level 8.5 MG/DL Microbiology Date/Time Procedure Status Source Growth 04/03/16 17:20 Gram Stain - Final Resulted Sputum Endotracheal 04/03/16 17:20 Sputum Culture - Preliminary Resulted S. Aureus Mrsa 04/03/16 21:30 Aerobic Blood Culture - Preliminary Resulted Blood Peripheral NO GROWTH IN 2 DAYS 04/03/16 21:30 Anaerobic Blood Culture - Preliminary Resulted Blood Peripheral NO GROWTH IN 2 DAYS 04/03/16 21:35 Aerobic Blood Culture - Preliminary Resulted Blood Peripheral NO GROWTH IN 2 DAYS 04/03/16 21:35 Anaerobic Blood Culture - Preliminary Resulted Blood Peripheral NO GROWTH IN 2 DAYS IMAGING: Chest X-Ray 03/13/16 0000 Signed Impressions: Service Date/Time: Sunday, March 13, 2016 06:21 - CONCLUSION: Stable chest Wellington West MD Head Magnetic Resonance Angiography 03/05/16 0000 Signed Impressions: Service Date/Time: Saturday, March 05, 2016 09:26 - CONCLUSION: Persistent high-grade subtotal occlusive stenotic lesions in the distal right vertebral artery and proximal basilar artery with significant improvement in flow and recanalization following initial presentation of thrombosis. Stable interstitial circulation without significant stenosis. 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 There is decreasing restricted diffusion and increasing loss of volume characteristic of a subacute to chronic infarct. No evidence of acute infarct, acute hemorrhage mass or edema. Ernesto Kulkarni MD Head CT 01/16/16 0000 Signed Impressions: Service Date/Time: Saturday, January 16, 2016 10:51 - CONCLUSION: No extensive low density in the brainstem colin more prominent in the right the left extending into the right middle cerebellar peduncle consistent with brainstem infarct nonhemorrhagic acute Wellington West MD Abdomen X-Ray 01/14/16 0000 Signed Impressions: Service Date/Time: Thursday, January 14, 2016 10:19 - CONCLUSION: Moderate stool; otherwise, negative. 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 No evidence of carotid stenosis. Glen Zamora MD Head/Brain Mag Res Venography 12/22/15 0000 Signed Impressions: Service Date/Time: Tuesday, December 22, 2015 09:22 - CONCLUSION: Normal MRV. Jonel Jones Jr., MD PHYSICAL EXAMINATION GENERAL: No acute distress. HEENT: The sclerae are nonicteric. No erythema. Oropharynx - moist mucosa visible. NECK: Supple without adenopathy. LUNGS: Decreased breath sounds. HEART: Regular rate and rhythm without murmurs, rubs or gallops. ABDOMEN: Bowel sounds present, soft, no tenderness appreciated. BACK: Deep tunnelling sacrum ulcer which has bloody drainage. EXTREMITIES: No clubbing, cyanosis or edema. NEUROLOGIC: Unable to assess. SKIN: No rash. IMPRESSION 1. Fever. Questionable etiology. Low grade periodic fever. MRSA in sputum. ? PNA vs Tracheobronchitis. 2. CVA. 3. Post tracheostomy. 4. Sacral wound. RECOMMENDATIONS 1. Continue Zyvox for MRSA. 2. Monitor the temp. 3. Monitor Platelet. Anticipate treatment with Zyvox x 10 days to 04/15. Carlos Liu MD Apr 08, 2016 15:33
[2016-04-08] MEDS: WARFARIN SOD 3 MG TAB PO SCH (16:36)
[2016-04-08 16:43] LABS: INTERNATIONAL NORMALIZED RATIO 2.1 RATIO; PROTHROMBIN TIME - PATIENT 22.4 SEC (9.8-11.4)
[2016-04-08] MEDS: PARoxetine HCL SUSP 20 MG/10 ML UDC PEG SCH (19:00)
[2016-04-08] MEDS: INSULIN DETEMIR 100 UNITS/ML VIAL SQ SCH (23:07)
[2016-04-09] VITALS (9 sets, daily range): BP systolic 105–140; BP diastolic 60–72; PULSE 98–114; RESP 18–24; TEMP 78.9–99.1; O2SAT 94–100
[2016-04-09] MEDS: FREE WATER TUBE SCH ×5 (04:00→20:00)
[2016-04-09] MEDS: ACETIC ACID 0.25% SOLN 1000 ML IRR BTL IRRIGATION SCH ×3 (06:00→22:09)
[2016-04-09] MEDS: INSULIN ASPART SUPPLEMENTAL SCALE SQ SCH ×4 (06:05→22:22)
[2016-04-09 08:42] LABS: INTERNATIONAL NORMALIZED RATIO 2.2 RATIO; PROTHROMBIN TIME - PATIENT 24.5 SEC (9.8-11.4)
[2016-04-09] MEDS: HYOSCYAMINE SOLN 0.125 MG/ML 15 ML BTL PEG PRN ×2 (08:42→22:08)
[2016-04-09] MEDS: SENNOSIDES SYRUP 8.8 MG/5 ML CUP TUBE SCH (08:43)
[2016-04-09] MEDS: METOPROLOL TARTRATE 50 MG TAB PO SCH ×2 (08:43→20:36)
[2016-04-09] MEDS: RANITIDINE HCL SYRUP 150 MG/10 ML UDC PO SCH (08:43)
[2016-04-09] MEDS: DILTIAZEM-CD 120 MG CAP ER PO SCH (08:43)
[2016-04-09] MEDS: LINEZOLID 600 MG TAB PO SCH ×2 (08:43→20:36)
[2016-04-09] MEDS: levETIRAcetam 500 MG/5 ML UDC TUBE SCH ×2 (08:43→20:36)
[2016-04-09] MEDS: NYSTATIN 100,000 U/GM PWD 15 GM BTL TOPICAL SCH ×2 (08:43→22:08)
--- NOTE | 2016-04-09 10:08 | HHI.PR ---
Subjective Remarks No acute changes, d/w family at bedside. Objective Vitals Vital Signs Date Time Temp Pulse Resp B/P Pulse Ox O2 Delivery O2 Flow Rate FiO2 04/09/16 08:54 96 T-piece 6.00 21 04/09/16 08:54 96 T-piece 6.00 21 04/09/16 08:06 98.5 114 24 114/63 96 04/09/16 04:00 99.0 101 20 140/69 100 04/09/16 02:29 102 04/09/16 01:00 97.0 105 18 105/62 94 04/08/16 20:00 98.2 105 18 117/72 96 04/08/16 19:50 99 T-piece 21 04/08/16 19:45 96 Trach Collar 21 T-Piece 04/08/16 16:06 97.0 98 22 124/72 93 04/08/16 12:16 T-piece 21 04/08/16 12:05 98.1 99 24 100/67 96 I/O 04/08/16 04/08/16 04/08/16 04/09/16 04/09/16 04/09/16 07:00 15:00 23:00 07:00 15:00 23:00 Output Total 2200 ml 300 ml 1300 ml Balance -2200 ml -300 ml -1300 ml Output Urine Total 2200 ml 300 ml 1300 ml # Bowel Movements 0 Result Diagram: 04/05/16 0735 Objective Remarks GENERAL: Obese male patient. SKIN: Warm and dry. HEAD: Normocephalic. EYES: No scleral icterus. No injection or drainage. NECK: trach in place. CARDIOVASCULAR: Regular rate and rhythm without murmurs, gallops, or rubs. RESPIRATORY: Breath sounds equal bilaterally. No accessory muscle use. GASTROINTESTINAL: Abdomen soft, non-tender, nondistended. EXTREMITIES: trace edema of hands. NEUROLOGICAL: Awake, alert. Does not follow commands. 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 Significant residual cognitive deficit. -Nonverbal at this time; appears to be in a locked in state. -Continue Keppra and Coumadin- Palliative care following. Monitor Keppra level periodically. - evaluated by neurology; continue Keppra and coumadin. -Resume Paxil per family's request GI/Nutrition: Previous PEG tube exchanged by GI at bedside 03/30/2016. dietary reconsulted to assess caloric needs. Respiratory failure: Secondary to CVA. Patient is status post tracheostomy. Continue pulmonary toilet and neb treatments as needed. Pulmonary following. - Levsin PRN secretions. Depression: Continue Paxil. A-fib: continue Lopressor, cardizem, warfarin with INR/PT monitoring. Echocardiogram completed in November shows preserved EF. Pharmacy assisting with Coumadin dosing to keep therapeutic. UTI: Resolved. Urine culture with Klebsiella on 01/31 and repeat on 03/06 negative. Arevalo replaced on 03/07. Coccyx pressure ulcer- cont wound care. History of Non-Hodgkin lymphoma: s/p brain biopsy on December 13, by Neurosurgery, Dr. Marin, Pathology consistent with acute infarct without evidence of lymphoma -Seen by Oncology, Dr. Whyte, who has signed off for current admission. DM: Hemoglobin A1c is 7.0. Continue Levemir with sliding scale insulin- monitor and adjust the regimen as needed. Fever with MRSA in the sputum, tracheobronchitis. Chest x-ray 04/05 was clear. started on zyvox- to take until 04/15- ID is following (Dr. Liu). mild hypokalemia; replaced. DVT prophylaxis: on Coumadin. INR therapeutic Problem Qualifiers (1) DM (diabetes mellitus): Qualified Code: E11.9 - Type 2 diabetes mellitus without complications Lena Gonzalez MD Apr 09, 2016 10:08
[2016-04-09] MEDS: WARFARIN SOD 3 MG TAB PO SCH (16:00)
[2016-04-09] MEDS: PARoxetine HCL SUSP 20 MG/10 ML UDC PEG SCH (18:55)
[2016-04-09] MEDS: INSULIN DETEMIR 100 UNITS/ML VIAL SQ SCH (20:40)
[2016-04-10] VITALS (10 sets, daily range): BP systolic 107–154; BP diastolic 69–80; PULSE 98–119; RESP 19–22; TEMP 96.2–99.6; O2SAT 94–98
[2016-04-10] MEDS: FREE WATER TUBE SCH ×7 (04:00→23:12)
[2016-04-10] MEDS: ACETIC ACID 0.25% SOLN 1000 ML IRR BTL IRRIGATION SCH ×3 (06:06→20:56)
[2016-04-10] MEDS: INSULIN ASPART SUPPLEMENTAL SCALE SQ SCH ×4 (06:06→20:58)
[2016-04-10] MEDS: RANITIDINE HCL SYRUP 150 MG/10 ML UDC PO SCH (08:04)
[2016-04-10] MEDS: LINEZOLID 600 MG TAB PO SCH ×2 (08:04→20:57)
[2016-04-10] MEDS: DILTIAZEM-CD 120 MG CAP ER PO SCH (08:04)
[2016-04-10] MEDS: NYSTATIN 100,000 U/GM PWD 15 GM BTL TOPICAL SCH ×2 (08:05→20:56)
[2016-04-10] MEDS: SENNOSIDES SYRUP 8.8 MG/5 ML CUP TUBE SCH (08:05)
[2016-04-10] MEDS: HYOSCYAMINE SOLN 0.125 MG/ML 15 ML BTL PEG PRN (08:05)
[2016-04-10] MEDS: levETIRAcetam 500 MG/5 ML UDC TUBE SCH ×2 (08:05→20:56)
[2016-04-10] MEDS: METOPROLOL TARTRATE 50 MG TAB PO SCH ×2 (08:05→20:57)
[2016-04-10 08:41] LABS: PROTHROMBIN TIME - PATIENT 21.6 SEC (9.8-11.4)
--- NOTE | 2016-04-10 09:36 | HHI.PR ---
Subjective Remarks no acute concerns reported Objective Vitals Vital Signs Date Time Temp Pulse Resp B/P Pulse Ox O2 Delivery O2 Flow Rate FiO2 04/10/16 08:49 98.0 119 20 142/72 97 04/10/16 04:00 99.6 111 22 120/70 95 04/10/16 00:00 98.0 109 22 129/69 94 04/09/16 21:32 98 T-piece 21 04/09/16 21:32 98 T-piece 21 04/09/16 20:00 99.1 112 22 112/72 94 04/09/16 16:09 78.9 105 22 108/62 95 04/09/16 12:08 98.7 98 24 106/60 96 I/O 04/09/16 04/09/16 04/09/16 04/10/16 04/10/16 04/10/16 07:00 15:00 23:00 07:00 15:00 23:00 Intake Total 800 ml 1600 ml 900 ml Output Total 1300 ml 850 ml 800 ml 800 ml Balance -1300 ml -50 ml 800 ml 100 ml IV Total 0 ml 0 ml Tube Feeding 400 ml 500 ml Other 800 ml 1200 ml 400 ml Output Urine Total 1300 ml 850 ml 800 ml 800 ml # Bowel Movements 1 1 Objective Remarks GENERAL: Elderly patient, in no acute distress. SKIN: Warm and dry. No rashes generalized distribution noted. HEAD: Normocephalic. Atraumatic. EYES: No scleral icterus. No injection or drainage. NECK: Supple, trachea midline. No JVD. Tracheostomy in place CARDIOVASCULAR: Regular rate and rhythm without murmurs, gallops, or rubs. RESPIRATORY: Breath sounds equal bilaterally. No accessory muscle use. Trach in place. GASTROINTESTINAL: Abdomen soft, non-tender, nondistended. Normoactive bowel sounds 4. PEG in place. MUSCULOSKELETAL: Extremities without clubbing, cyanosis, or edema. NEUROLOGICAL: Does not spontaneously move extremities, Nonverbal. ? tracking with eyes. 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 Significant residual cognitive deficit. -Nonverbal at this time; appears to be in a locked in state. -Continue Keppra and Coumadin- Palliative care following. Monitor Keppra, last level 03/08 was 15.4. INR 2.0 today. - Neurology following, continue Keppra and coumadin. GI/Nutrition: Previous PEG tube exchanged by GI at bedside 03/30/2016. Awaiting dietary recommendations; Nepro tube feedings for sodium content to continue at 55 mL, hour. Patient's daily weight has decreased over the last week from 90- 93kg to 86.5kg, dietary reconsulted to assess caloric needs. Appreciate their recommendations. Weight has been confirmed, 89.8 kg; discrepancy was due to leaving pillows, sheets on bed while weighing. Respiratory failure: Secondary to CVA. Patient is status post tracheostomy. Continue pulmonary toilet and neb treatments as needed. Pulmonary following. - Levsin PRN secretions. Depression: Continue Paxil. A-fib: continue Lopressor, cardizem, warfarin with INR/PT monitoring. Echocardiogram completed in November shows preserved EF. Pharmacy assisting with Coumadin dosing to keep therapeutic. UTI: Resolved. Urine culture with Klebsiella on 01/31 and repeat on 03/06 negative. Arevalo replaced on 03/07. Coccyx pressure ulcer: Plastic surgery recommendations appreciated. Wound care nurse input appreciated and recommended continue current treatment per protocol ; repositioning Q2-3H; Store Operations Associate consult. Concern over increased amount of codi red blood on dressing; patient is on blood thinners. H&H is noted to be low but stable. We'll continue to monitor H&H. If this drops or if codi red blood does not decrease in amount, may consider reconsulting plastic surgery. History of Non-Hodgkin lymphoma: s/p brain biopsy on December 13, by Neurosurgery, Dr. Marin, Pathology consistent with acute infarct without evidence of lymphoma -Seen by Oncology, Dr. Whyte, who has signed off for current admission. DM: Hemoglobin A1c is 7.0. Continue Levemir with sliding scale insulin- monitor and adjust the regimen as needed. Blood sugar 136 this morning. Pneumonia with MRSA: patient having fevers 02/27-03/08, Blood cultures on 03/03 grew gram-negative rods in 1 out of 4 bottles, repeat blood cultures 03/06 negative. Sputum culture 03/08 with MRSA. Infectious disease consulted, Bactrim and Flagyl completed 03/14, Vanco completed 03/17. Do not repeat culture unless fevers return, per ID. Fever with MRSA in the sputum, tracheobronchitis- recultured 04/03/16. Chest x- ray 04/05 was clear. Blood cultures negative. Started on zyvox- to take until - ID is following (Dr. Liu). DVT prophylaxis: Full anticoagulation with Coumadin. INR therapeutic Dry eyessister requesting eyedrops for symptomatic relief. Lacri-Lube ordered. Speech therapy consulted to evaluate,passy-mikey valve trial. CBC BMP as needed. Care was discussed with patient, family, RN, Dr. Gonzalez Discharge Planning Patient was approved for Medicaid, SSI pending. Will need long-term SNF placement. Problem Qualifiers (1) DM (diabetes mellitus): Qualified Code: E11.9 - Type 2 diabetes mellitus without complications Melly Collins Apr 10, 2016 09:35 Lena Gonzalez MD Apr 10, 2016 23:11
[2016-04-10] MEDS: ARTIFICIAL TEARS OPTH OINT 3.5 APPLIC/3.5 GM TUBO EACH EYE SCH ×2 (11:00→20:57)
[2016-04-10] MEDS: WARFARIN SOD 3 MG TAB PO SCH (16:00)
[2016-04-10] MEDS: PARoxetine HCL SUSP 20 MG/10 ML UDC PEG SCH (19:00)
[2016-04-10] MEDS: INSULIN DETEMIR 100 UNITS/ML VIAL SQ SCH (20:58)
[2016-04-11] VITALS (9 sets, daily range): BP systolic 105–138; BP diastolic 65–73; PULSE 86–112; RESP 19–23; TEMP 95.7–97.5; O2SAT 96–100
[2016-04-11] MEDS: FREE WATER TUBE SCH ×5 (03:23→20:00)
[2016-04-11] MEDS: INSULIN ASPART SUPPLEMENTAL SCALE SQ SCH ×4 (04:45→20:33)
[2016-04-11] MEDS: ACETIC ACID 0.25% SOLN 1000 ML IRR BTL IRRIGATION SCH ×3 (05:22→20:23)
[2016-04-11 07:50] LABS: PROTHROMBIN TIME - PATIENT 21.2 SEC (9.8-11.4)
[2016-04-11] MEDS: levETIRAcetam 500 MG/5 ML UDC TUBE SCH ×2 (07:57→20:18)
[2016-04-11] MEDS: DILTIAZEM-CD 120 MG CAP ER PO SCH (07:57)
[2016-04-11] MEDS: METOPROLOL TARTRATE 50 MG TAB PO SCH ×2 (07:57→20:18)
[2016-04-11] MEDS: SENNOSIDES SYRUP 8.8 MG/5 ML CUP TUBE SCH (07:57)
[2016-04-11] MEDS: LINEZOLID 600 MG TAB PO SCH ×2 (07:57→20:18)
[2016-04-11] MEDS: RANITIDINE HCL SYRUP 150 MG/10 ML UDC PO SCH (07:57)
[2016-04-11] MEDS: ARTIFICIAL TEARS OPTH OINT 3.5 APPLIC/3.5 GM TUBO EACH EYE SCH ×2 (07:58→20:24)
[2016-04-11] MEDS: NYSTATIN 100,000 U/GM PWD 15 GM BTL TOPICAL SCH ×2 (07:58→20:23)
--- NOTE | 2016-04-11 10:23 | HHI.PR ---
Subjective Remarks Discussed patient with at bedside. Patient communicates intermittently with eye movements that mean yes or no. He is in no apparent distress, blinks no to pain. No vomiting has been noted. Patient does have excess oral secretions. Objective Vitals Vital Signs Date Time Temp Pulse Resp B/P Pulse Ox O2 Delivery O2 Flow Rate FiO2 04/11/16 09:03 95.7 101 120/73 97 04/11/16 04:00 97.1 106 23 122/68 100 04/11/16 00:30 97.1 98 20 138/71 98 04/10/16 21:00 97.6 100 19 154/80 97 04/10/16 20:58 T-piece 6.00 21 04/10/16 20:00 101 04/10/16 19:00 Room Air 04/10/16 17:54 95 21 04/10/16 17:53 95 Room Air 21 04/10/16 16:23 97.0 99 20 107/69 95 04/10/16 12:10 96.2 98 20 113/72 96 I/O 04/10/16 04/10/16 04/10/16 04/11/16 04/11/16 04/11/16 07:00 15:00 23:00 07:00 15:00 23:00 Intake Total 900 ml 800 ml 400 ml 1731 ml Output Total 800 ml 1200 ml 1300 ml Balance 100 ml 800 ml -800 ml 431 ml Intake Oral 0 ml 1200 ml IV Total 0 ml Tube Feeding 500 ml 531 ml Other 400 ml 800 ml 400 ml Output Urine Total 800 ml 1200 ml 1300 ml Bladder Scan Volume Amount 392 ml # Voids 3 # Bowel Movements 1 3 1 1 Objective Remarks GENERAL: Elderly patient, in no acute distress. SKIN: Warm and dry. No rashes generalized distribution noted. HEAD: Normocephalic. Atraumatic. EYES: No scleral icterus. No injection or drainage. NECK: Supple, trachea midline. No JVD. Tracheostomy in place on 28% t piece CARDIOVASCULAR: Regular rate and rhythm without murmurs, gallops, or rubs. RESPIRATORY: Rhonchi Breath sounds throughout GASTROINTESTINAL: Abdomen soft, non-tender, nondistended. Normoactive bowel sounds 4. PEG in place. MUSCULOSKELETAL: Extremities without clubbing, cyanosis, or edema. NEUROLOGICAL: Does not spontaneously move extremities, Nonverbal. Blinks to yes /no questions intermittenly. Procedures 01/02/16 PEG placement 01/02/16 tracheostomy Medications and IVs Current Medications Medications (Trade) Dose Ordered Sig/Junior Route Start Time Stop Time Status Last Admin (NS Flush) 2 ml UNSCH PRN IVF 12/21/15 06:00 03/20/16 20:50 (D50w (Vial) Inj) 25 ml UNSCH PRN IV PUSH 12/21/15 13:00 (Glucagon Inj) 1 mg UNSCH PRN OTHER 12/21/15 13:00 (Keppra Liq) 500 mg Q12HR TUBE 12/27/15 21:00 04/11/16 07:57 (Colace Liq) 100 mg Q12HR TUBE 12/27/15 21:00 Hold 01/15/16 09:01 (Tylenol 650 Mg/ 20 ml Liq) 650 mg Q6H PRN TUBE 12/30/15 15:15 04/03/16 09:06 Acetaminophen/ Hydrocodone Bitart 1 tab 1 tab Q6H PRN PO 12/31/15 15:00 04/07/16 21:47 (Coumadin Consult Pharmacy) 0 ml @ 0 mls/hr UNSCH XX 01/04/16 12:30 (Mycostatin Powder) 1 applic Q12HR TOPICAL 01/08/16 21:00 04/11/16 07:58 (Pill Splitter) 1 ea UNSCH PRN OTHER 01/14/16 08:30 (Zantac Liq) 150 mg Q24H PO 01/18/16 09:00 04/11/16 07:57 (Free Water) 400 ml Q4HR TUBE 01/19/16 12:00 04/11/16 07:57 (Acetic Acid 0.25% Irr Btl) 10 ml Q8HR IRRIGATION 02/05/16 16:00 04/11/16 05:22 (Senna Liq) 8.8 mg DAILY TUBE 02/21/16 09:00 04/11/16 07:57 (Ativan Inj) 0.5 mg Q4H PRN IV PUSH 03/07/16 23:00 (Coumadin) 3 mg DAILY@16 PO 03/10/16 16:00 04/10/16 16:00 (Paxil Liq) 20 mg DAILY@1900 PEG 03/12/16 19:00 04/10/16 19:00 (Cardizem Cd) 120 mg DAILY PO 03/22/16 16:00 04/11/16 07:57 (Levsin Liq) 0.125 mg Q4H PRN PEG 03/22/16 15:15 04/10/16 08:05 (Levemir Inj) 35 units HS SQ 03/24/16 21:00 04/10/16 20:58 (Lopressor) 75 mg BID PO 04/02/16 21:00 04/11/16 07:57 (Zyvox) 600 mg Q12HR PO 04/05/16 15:00 04/11/16 07:57 (Lacrilube Opht Oint) 1 applic Q12HR EACH EYE 04/10/16 11:00 04/11/16 07:58 Date of Insertion: Mar 07, 2016 Vascular Central Line Catheter: No A/P Problem List: (1) CVA (cerebral vascular accident) Status: Acute (2) A-fib Status: Chronic (3) DM (diabetes mellitus) Status: Chronic Assessment and Plan 60 y/o male presented with: CVA (cerebral vascular accident): 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 -Nonverbal at this time; intermittently eye movements to questioning. -Continue Keppra and Coumadin per neurology- Palliative care following. Monitor Keppra level periodically. -Seizure precautions GI/Nutrition: Previous PEG tube exchanged by GI at bedside 03/30/2016. -Per dietary recommendations; Cont Nepro tube feedings at 55 mL/hour. Respiratory failure: Secondary to CVA. Patient is status post tracheostomy. Rhonchi lung sounds. -Continue pulmonary toilet and neb treatments as needed. Pulmonary following. -Increased Levsin to .25mg Q4h PRN for secretions. -ST following for passy-mikey valve trial Depression: Continue Paxil. A-fib: continue Lopressor, cardizem, INR therapeutic 2.0 -warfarin with INR/PT monitoring. -Pharmacy assisting with Coumadin dosing to keep therapeutic. Coccyx pressure ulcer: -repositioning Q2H -Cont. wound care recommendations: Wound packed with algiante and covered with dry cover dressing. Change this PRN. -If patient does not Pneumonia with MRSA: Resolving, no fevers.Chest x-ray 04/05 was clear. -Do not repeat culture unless fevers return, per ID. -Started on zyvox- to take until 04/15- ID is following (Dr. Liu) -CBC ordered and pending Hyponatremia & Hypokalemia, 04/04 na133,K 3.4 likely due to malnutrition at that time -BMP ordered, and pending -Tube feeding has been restarted DVT prophylaxis: Full anticoagulation with Coumadin. Discharge Planning Patient was approved for Medicaid, SSI pending. Will need long-term SNF placement Problem Qualifiers (1) DM (diabetes mellitus): Qualified Code: E11.9 - Type 2 diabetes mellitus without complications Kamala Farias Apr 11, 2016 10:23
[2016-04-11 10:25] LABS: HEMATOCRIT 27.7 % (39.0-51.0); MEAN CELL VOLUME 73.5 FL (80.0-100.0); MEAN CORPUSCULAR HEMOGLOBIN 23.1 PG (27.0-34.0); MEAN CORPUSCULAR HGB CONC 31.5 % (32.0-36.0); PLATELET COUNT 305 TH/MM3 (150-450); RED BLOOD COUNT 3.77 MIL/MM3 (4.50-5.90); RED CELL DISTRIBUTION WIDTH 20.1 % (11.6-17.2); WHITE BLOOD COUNT 6.1 TH/MM3 (4.0-11.0)
[2016-04-11 10:32] LABS: REVIEW FLAG FINAL
[2016-04-11 10:46] LABS: POTASSIUM 3.7 MEQ/L (3.5-5.1)
[2016-04-11] MEDS: WARFARIN SOD 3 MG TAB PO SCH (15:52)
[2016-04-11] MEDS: PARoxetine HCL SUSP 20 MG/10 ML UDC PEG SCH (18:20)
[2016-04-11] MEDS: INSULIN DETEMIR 100 UNITS/ML VIAL SQ SCH (20:19)
[2016-04-12] VITALS (8 sets, daily range): BP systolic 111–132; BP diastolic 64–84; PULSE 90–114; RESP 19–22; TEMP 96.4–98.9; O2SAT 94–99
[2016-04-12] MEDS: FREE WATER TUBE SCH ×7 (04:00→23:49)
[2016-04-12] MEDS: ACETIC ACID 0.25% SOLN 1000 ML IRR BTL IRRIGATION SCH ×3 (06:00→22:00)
[2016-04-12] MEDS: INSULIN ASPART SUPPLEMENTAL SCALE SQ SCH ×4 (07:00→21:00)
[2016-04-12] MEDS: METOPROLOL TARTRATE 50 MG TAB PO SCH ×2 (08:04→21:37)
[2016-04-12] MEDS: levETIRAcetam 500 MG/5 ML UDC TUBE SCH ×2 (08:04→21:36)
[2016-04-12] MEDS: RANITIDINE HCL SYRUP 150 MG/10 ML UDC PO SCH (08:04)
[2016-04-12] MEDS: DILTIAZEM-CD 120 MG CAP ER PO SCH (08:04)
[2016-04-12] MEDS: NYSTATIN 100,000 U/GM PWD 15 GM BTL TOPICAL SCH ×2 (08:04→21:38)
[2016-04-12] MEDS: ARTIFICIAL TEARS OPTH OINT 3.5 APPLIC/3.5 GM TUBO EACH EYE SCH ×2 (08:04→21:38)
[2016-04-12] MEDS: LINEZOLID 600 MG TAB PO SCH ×2 (08:04→21:36)
[2016-04-12] MEDS: SENNOSIDES SYRUP 8.8 MG/5 ML CUP TUBE SCH (08:04)
--- NOTE | 2016-04-12 08:37 | HHI.PR ---
Subjective Remarks Discussed patient with daughter at bedside. Patient communicates intermittently with eye movements that mean yes or no. He is in no apparent distress, blinks no to pain. No vomiting has been noted. RN at bedside changing wound dressing, moderate amount of blood coming from sacral wound that saturates gauze and mepilex. Vital signs are currently stable. Objective Vitals Vital Signs Date Time Temp Pulse Resp B/P Pulse Ox O2 Delivery O2 Flow Rate FiO2 04/12/16 04:00 98.9 105 20 132/77 96 04/12/16 00:00 97.7 91 20 127/84 99 04/11/16 23:00 106 04/11/16 22:55 Room Air 5.00 04/11/16 22:15 96 T-piece 5.00 21 04/11/16 22:15 96 T-piece 5.00 04/11/16 20:41 97.5 112 19 105/65 97 04/11/16 16:39 96.5 98 20 120/68 99 04/11/16 11:52 96.1 86 22 121/71 97 04/11/16 10:15 100 T-piece 6.00 21 04/11/16 10:15 100 T-piece 6.00 21 04/11/16 09:03 95.7 101 120/73 97 I/O 04/11/16 04/11/16 04/11/16 04/12/16 04/12/16 04/12/16 07:00 15:00 23:00 07:00 15:00 23:00 Intake Total 1731 ml Output Total 1300 ml 1200 ml 700 ml 400 ml Balance 431 ml -1200 ml -700 ml -400 ml Intake Oral 1200 ml Tube Feeding 531 ml Output Urine Total 1300 ml 1200 ml 700 ml 400 ml Bladder Scan Volume Amount 392 ml # Bowel Movements 1 1 1 1 Result Diagram: 04/11/16 1002 04/11/16 1002 Objective Remarks GENERAL: Elderly patient, in no acute distress. SKIN: Warm and dry. No rashes. Sacral wound with bloody drainage covered with a Mepilex. HEAD: Normocephalic. Atraumatic. EYES: No scleral icterus. No injection or drainage. NECK: Supple, trachea midline. No JVD. Tracheostomy in place on 28% t piece CARDIOVASCULAR: Regular rate and rhythm without murmurs, gallops, or rubs. RESPIRATORY: Rhonchi Breath sounds throughout, increased oral secretions. GASTROINTESTINAL: Abdomen soft, non-tender, nondistended. Normoactive bowel sounds 4. PEG in place with nephro TF at goal. MUSCULOSKELETAL: Extremities without clubbing, cyanosis, or edema. NEUROLOGICAL: Does not spontaneously move extremities, Nonverbal. Blinks to yes /no questions intermittently. Procedures 01/02/16 PEG placement 01/02/16 tracheostomy Medications and IVs Current Medications Medications (Trade) Dose Ordered Sig/Junior Route Start Time Stop Time Status Last Admin (NS Flush) 2 ml UNSCH PRN IVF 12/21/15 06:00 03/20/16 20:50 (D50w (Vial) Inj) 25 ml UNSCH PRN IV PUSH 12/21/15 13:00 (Glucagon Inj) 1 mg UNSCH PRN OTHER 12/21/15 13:00 (Keppra Liq) 500 mg Q12HR TUBE 12/27/15 21:00 04/12/16 08:04 (Colace Liq) 100 mg Q12HR TUBE 12/27/15 21:00 Hold 01/15/16 09:01 (Tylenol 650 Mg/ 20 ml Liq) 650 mg Q6H PRN TUBE 12/30/15 15:15 04/03/16 09:06 Acetaminophen/ Hydrocodone Bitart 1 tab 1 tab Q6H PRN PO 12/31/15 15:00 04/07/16 21:47 (Coumadin Consult Pharmacy) 0 ml @ 0 mls/hr UNSCH XX 01/04/16 12:30 (Mycostatin Powder) 1 applic Q12HR TOPICAL 01/08/16 21:00 04/12/16 08:04 (Pill Splitter) 1 ea UNSCH PRN OTHER 01/14/16 08:30 (Zantac Liq) 150 mg Q24H PO 01/18/16 09:00 04/12/16 08:04 (Free Water) 400 ml Q4HR TUBE 01/19/16 12:00 04/12/16 08:00 (Acetic Acid 0.25% Irr Btl) 10 ml Q8HR IRRIGATION 02/05/16 16:00 04/12/16 06:00 (Senna Liq) 8.8 mg DAILY TUBE 02/21/16 09:00 04/12/16 08:04 (Ativan Inj) 0.5 mg Q4H PRN IV PUSH 03/07/16 23:00 (Coumadin) 3 mg DAILY@16 PO 03/10/16 16:00 04/11/16 15:52 (Paxil Liq) 20 mg DAILY@1900 PEG 03/12/16 19:00 04/11/16 18:20 (Cardizem Cd) 120 mg DAILY PO 03/22/16 16:00 04/12/16 08:04 (Levemir Inj) 35 units HS SQ 03/24/16 21:00 04/11/16 20:19 (Lopressor) 75 mg BID PO 04/02/16 21:00 04/12/16 08:04 (Zyvox) 600 mg Q12HR PO 04/05/16 15:00 04/12/16 08:04 (Lacrilube Opht Oint) 1 applic Q12HR EACH EYE 04/10/16 11:00 04/12/16 08:04 (Levsin) 0.25 mg Q4H PRN G-TUBE 04/11/16 10:30 Urinary Catheter: Yes Date of Insertion: Mar 07, 2016 Vascular Central Line Catheter: No A/P Problem List: (1) CVA (cerebral vascular accident) Status: Acute (2) A-fib Status: Chronic (3) DM (diabetes mellitus) Status: Chronic Assessment and Plan 60 y/o male presented with: CVA (cerebral vascular accident): 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 -Nonverbal at this time; intermittently eye movements to questioning. -Continue Keppra and Coumadin per neurology- Palliative care following. Monitor Keppra level periodically. -Seizure precautions GI/Nutrition: Previous PEG tube exchanged by GI at bedside 03/30/2016. -Per dietary recommendations; Cont Nepro tube feedings at 55 mL/hour. Respiratory failure: Secondary to CVA. Patient is status post tracheostomy. Rhonchi lung sounds. -Continue pulmonary toilet and neb treatments as needed. Pulmonary following. -Cont. Levsin to .25mg Q4h PRN for secretions. -ST following for passy-mikey valve trial Depression: Continue Paxil. A-fib: continue Lopressor, cardizem, -warfarin with INR/PT monitoring. -Pharmacy assisting with Coumadin dosing to keep therapeutic. Coccyx pressure ulcer: -repositioning Q2H -Cont. wound care recommendations: Wound packed with algiante and covered with dry cover dressing. Change this PRN. -Consult Plastic Surgery for recommendations Anemia, due to bleeding coccyx wound, Hgb 04/11 8.7 trending down -H&H ordered for today -Will transfuse if needed Pneumonia with MRSA: Resolving, no fevers.Chest x-ray 04/05 was clear. -Do not repeat culture unless fevers return, per ID. -Started on zyvox- to take until 04/15- ID is following (Dr. Liu) Hyponatremia 04/12 na132, likely due to malnutrition at that time [place] [place] -Tube feeding has been restarted and is at goal DVT prophylaxis: Full anticoagulation with Coumadin. Discharge Planning Patient was approved for Medicaid, SSI pending. Will need long-term SNF placement Problem Qualifiers (1) DM (diabetes mellitus): Qualified Code: E11.9 - Type 2 diabetes mellitus without complications Kamala Farias Apr 12, 2016 08:37
[2016-04-12 08:40] LABS: INTERNATIONAL NORMALIZED RATIO 1.9 RATIO; PROTHROMBIN TIME - PATIENT 20.9 SEC (9.8-11.4)
[2016-04-12 11:53] LABS: HEMATOCRIT 27.8 % (39.0-51.0)
[2016-04-12] MEDS: WARFARIN SOD 3 MG TAB PO SCH (15:28)
[2016-04-12] MEDS: PARoxetine HCL SUSP 20 MG/10 ML UDC PEG SCH (18:57)
--- NOTE | 2016-04-12 20:16 | MB ---
cc: JANET HILL MD DATE OF CONSULTATION 04/12/16 REASON FOR CONSULTATION Large sacral wound. BRIEF HISTORY This is a very unfortunate 60 year-old gentleman, , has been in the [place] for apparently 35 years who has a history of lymphoma, some other medical issues, who has suffered from a stroke. He has been in the hospital since December 20. He has undergone tracheostomy and PEG tube and has had a presumed sacral wound with a large amount of bloody drainage. Plastic surgery, Dr. Yoder, was consulted to look at the wound. He said the wound is only about an inch on the outside, but you can stick your whole fist into the wound. He thinks there is loss of part of the sacrum and the coccyx and it extends up into the presacral space. He is concerned about the possibility of involving the rectum. He put in a general surgery consultation and thought maybe I could do a proctoscopy. I explained to him I do not do that. He is concerned about the bleeding. The patient is on Coumadin related to his stroke. He is accompanied by his mother and four sisters. They indicate his mental status is improved. He is able to communicate by looking upward or looking downward to say yes and no respectively. He has absolutely no function below his neck and he could not move his extremities at all. He apparently communicates that he is not in pain and can communicate with them otherwise. I do not see any evidence in the chart that expectations for improvement in neurologic function are there, but in communicating with the patient's family they are still hopeful for a miracle from God that he will neurologically improve. PAST MEDICAL HISTORY His previous medical problems include 1. Stroke 2. Atrial fibrillation 3. diabetes. 4. He has had at least a trache and the peg tube placement. MEDICATIONS present include 1. Levsin 2. Lacri-Lube 3. Eye Ointment. 4. Zyvox. 5. Lopressor. 6. Levemir. 7. Insulin. 8. NovoLog supplemental scale. 9. Diltiazem. 10. Paroxetine. 11. Lorazepam 12. Senna 13. Free water. 14. Zantac 15. Nystatin powder. 16. DuoNebs. 17. Lortab 18. Keppra. SOCIAL HISTORY He has a lot of support from his family. REVIEW OF SYSTEMS Really are not obtainable, although he does indicate he is not in pain. PHYSICAL EXAMINATION GENERAL: A post stroke state. His eyes are open and alert. I ask questions and then his family repeats the questions and tells him eyes up or eyes down for yes or no and then he appears to do that. VITAL SIGNS: Temperature is 98.1, pulse 96, respiratory rate 22, blood pressure 118/65. His oxygen saturation is 98%. HEENT: Head is normocephalic, atraumatic. His pupils appear to be round and reactive. His sclerae are anicteric. His oropharynx appears clear. He has a tracheostomy tube in place. LUNGS: He has equal bilateral breath sounds which are unlabored. HEART: Regular without obvious murmur, rub or gallop. ABDOMEN: Soft and nondistended in the upper slightly left of midline. Abdomen has a percutaneous endoscopic gastrostomy tube, appears clean and healthy without erythema. He tube feeding going in. he has normal bowel sounds. EXTREMITIES: Flaccid. He has protective foam booties on. He has sequential compression device on. He has equal radial pulses. His extremities appear perfused. With the assistance of his nurse and certified nursing assistant, we were able to roll him laterally to the right to examine the wound which appears about 2-3 cm in diameter. There is Kerlix coming out of the wound. It has blood staining on it. There is no active bleeding coming out of the wound. The nurse indicates there is two entire Kerlix within the wound. I did not remove it to the fact that Dr. Yoder says it was bleeding significantly and I did not want to encourage further bleeding. NEUROLOGIC: Neurologically, it really appears that he communicates with his eyes and is flaccid everywhere else. LABORATORY DATA Hemoglobin 8.7, platelet count was 305. His INR was 1.9. IMAGING STUDIES No CT scan of the abdomen and pelvis has been done yet to elucidate further the extent of the wound ASSESSMENT Sacral wound, question etiology and involvement of underlying structures. As I explained to Dr. Yoder, I do not believe from a general surgical standpoint I have really anything to offer. If there is concern about possible rectal involvement, I would recommend involving a colorectal surgeon to evaluate the rectum. Certainly Dr. Yoder can handle debridement of the involved tissues just as well as I can. He can do a much better job with coverage of the wound ultimately if that is indicated. I have asked several questions of the family indicating my concern about the long-term quality of life for their family member and one of the sisters asked that I please not say things like that in front of the mother or one of the other family members. The patient's apparently is coming and I will speak to her and provide her with my impression. Additionally, if bleeding is a concern option for interventional radiology and embolization would likely be the safest way to provide hemostasis rather than a large operative intervention which may end up with further blood loss and bleeding. Palliative care evaluation and discussion may be indicated. Please let me know if I can be of further assistance. I will not follow this patient unless I am called again. MD DIAMOND Perez/ /4:52 PM /7:48 PM
--- NOTE | 2016-04-12 21:10 | RADRPT ---
EXAM DATE/TIME: 04/12/2016 20:52 [facility] COMPARISON: CT ABDOMEN & PELVIS W CONTRAST, December 09, 2015, 11:29. INDICATIONS : Large cavity in presacral space, lymphoma in remission. IV CONTRAST: 98 cc Omnipaque 350 (iohexol) IV ORAL CONTRAST: Prescribed oral contrast ingested. RADIATION DOSE: 14.21 CTDIvol (mGy) MEDICAL HISTORY : Hypertension. Lymphoma. SURGICAL HISTORY : None. ENCOUNTER: Initial ACUITY: 1 day PAIN SCALE: Non-responsive LOCATION: abdomen TECHNIQUE: Volumetric scanning of the abdomen and pelvis was performed. Using automated exposure control and ad justment of the mA and/or kV according to patient size, radiation dose was kept as low as reasonably achievable to obtain optimal diagnostic quality images. FINDINGS: Compared with November 2015 there is interval appearance of a necrotic appearing mass or abscess measuring up to 6.4 cm in diameter just inferior to the sacrum. The mass causes some bony destruction of the i nferior sacrum and also of the coccyx. There is slight extension into the ischiorectal fossa and ther e is mural thickening of the rectum and anus. There is inflammatory change or edema extending cephala d into the presacral retroperitoneum predominantly on the left side. Arevalo catheter is present in dec ompressed bladder. Lung bases demonstrate minimal linear scarring. No acute findings in the liver, spleen, adrenals, kid neys or pancreas. There is a gastrostomy tube. There is an approximately 4.5 cm infrarenal abdominal aortic aneurysm, stable. CONCLUSION: 1. 6.4 cm necrotic mass or abscess in the soft tissues posteriorly just below the sacrum associated w ith some bony destructive change of the lower most sacrum and coccyx with inflammatory changes extend ing into the ischiorectal fossa and into the presacral retroperitoneum predominantly on the left side . There is associated fairly marked mural thickening of the anal verge and rectum. 2. There is gastrostomy and Arevalo catheter present. Stable abdominal aortic aneurysm. Durga Dotson MD on April 12, 2016 at 21:02 Board Certified Radiologist. This report was verified electronically.
[2016-04-12] MEDS: INSULIN DETEMIR 100 UNITS/ML VIAL SQ SCH (21:36)
[2016-04-13] VITALS (11 sets, daily range): BP systolic 91–125; BP diastolic 52–76; PULSE 90–110; RESP 19–22; TEMP 97–98.4; O2SAT 96–100
[2016-04-13] MEDS: FREE WATER TUBE SCH ×6 (04:00→23:59)
[2016-04-13] MEDS: ACETIC ACID 0.25% SOLN 1000 ML IRR BTL IRRIGATION SCH ×3 (06:00→21:48)
[2016-04-13] MEDS: INSULIN ASPART SUPPLEMENTAL SCALE SQ SCH ×4 (07:00→21:47)
[2016-04-13] MEDS: levETIRAcetam 500 MG/5 ML UDC TUBE SCH ×2 (08:18→20:03)
[2016-04-13] MEDS: RANITIDINE HCL SYRUP 150 MG/10 ML UDC PO SCH (08:18)
[2016-04-13] MEDS: DILTIAZEM-CD 120 MG CAP ER PO SCH (08:18)
[2016-04-13] MEDS: METOPROLOL TARTRATE 50 MG TAB PO SCH ×2 (08:18→20:02)
[2016-04-13] MEDS: LINEZOLID 600 MG TAB PO SCH ×2 (08:18→20:02)
[2016-04-13] MEDS: SENNOSIDES SYRUP 8.8 MG/5 ML CUP TUBE SCH (08:18)
[2016-04-13] MEDS: NYSTATIN 100,000 U/GM PWD 15 GM BTL TOPICAL SCH ×2 (08:50→20:17)
[2016-04-13] MEDS: ARTIFICIAL TEARS OPTH OINT 3.5 APPLIC/3.5 GM TUBO EACH EYE SCH ×2 (08:50→20:02)
[2016-04-13 09:37] LABS: HEMATOCRIT 25.7 % (39.0-51.0); MEAN CELL VOLUME 73.3 FL (80.0-100.0); MEAN CORPUSCULAR HGB CONC 31.4 % (32.0-36.0); PLATELET COUNT 310 TH/MM3 (150-450); WHITE BLOOD COUNT 6.4 TH/MM3 (4.0-11.0)
[2016-04-13 09:45] LABS: REVIEW FLAG FINAL
[2016-04-13 09:48] LABS: INTERNATIONAL NORMALIZED RATIO 1.8 RATIO; PROTHROMBIN TIME - PATIENT 19.7 SEC (9.8-11.4)
--- NOTE | 2016-04-13 10:03 | HHI.PR ---
Subjective Remarks Patient resting in bed with eyes open. , mother, and sister at bedside. Briefly updated for CT results, defer to Dr. Yoder for further questions and plan. asked about calcium level, which is stable at this time. No additional concerns. Patient does not appear in acute distress. Objective Vitals Vital Signs Date Time Temp Pulse Resp B/P Pulse Ox O2 Delivery O2 Flow Rate FiO2 04/13/16 08:00 97.1 106 22 108/76 98 04/13/16 04:54 98.4 94 20 125/67 100 04/13/16 00:00 97.8 90 21 106/62 97 04/12/16 21:39 94 T-piece 6.00 21 04/12/16 21:39 94 T-piece 6.00 21 04/12/16 20:00 98 T-Piece 5.00 21 04/12/16 20:00 114 04/12/16 20:00 96.4 97 21 123/72 97 04/12/16 16:00 98.1 96 22 118/65 98 04/12/16 12:00 97.6 95 19 111/69 98 04/12/16 10:10 98 T-piece 21 04/12/16 10:10 98 T-piece 21 I/O 04/12/16 04/12/16 04/12/16 04/13/16 04/13/16 04/13/16 07:00 15:00 23:00 07:00 15:00 23:00 Output Total 400 ml 1100 ml 650 ml Balance -400 ml -1100 ml -650 ml Output Urine Total 400 ml 1100 ml 650 ml # Bowel Movements 2 2 1 Result Diagram: 04/13/16 0745 04/11/16 1002 Imaging Last Impressions Abdomen/Pelvis CT 04/12/16 0000 Signed Impressions: Service Date/Time: Tuesday, April 12, 2016 20:52 - CONCLUSION: 1. 6.4 cm necrotic mass or abscess in the soft tissues posteriorly just below the sacrum associated with some bony destructive change of the lower most sacrum and coccyx with inflammatory changes extending into the ischiorectal fossa and into the presacral retroperitoneum predominantly on the left side. There is associated fairly marked mural thickening of the anal verge and rectum. 2. There is gastrostomy and Arevalo catheter present. Stable abdominal aortic aneurysm. Durga Dotson MD Chest X-Ray 04/05/16 0000 Signed Impressions: Service Date/Time: Tuesday, April 05, 2016 19:20 - CONCLUSION: Clear lungs. oJnel Jones Jr., MD Head Magnetic Resonance Angiography 03/05/16 0000 Signed Impressions: Service Date/Time: Saturday, March 05, 2016 09:26 - CONCLUSION: Persistent high-grade subtotal occlusive stenotic lesions in the distal right vertebral artery and proximal basilar artery with significant improvement in flow and recanalization following initial presentation of thrombosis. Stable interstitial circulation without significant stenosis. 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 There is decreasing restricted diffusion and increasing loss of volume characteristic of a subacute to chronic infarct. No evidence of acute infarct, acute hemorrhage mass or edema. Ernesto Kulkarni MD Head CT 01/16/16 0000 Signed Impressions: Service Date/Time: Saturday, January 16, 2016 10:51 - CONCLUSION: No extensive low density in the brainstem colin more prominent in the right the left extending into the right middle cerebellar peduncle consistent with brainstem infarct nonhemorrhagic acute Wellington West MD Abdomen X-Ray 01/14/16 0000 Signed Impressions: Service Date/Time: Thursday, January 14, 2016 10:19 - CONCLUSION: Moderate stool; otherwise, negative. 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 No evidence of carotid stenosis. Glen Zamora MD Head/Brain Mag Res Venography 12/22/15 0000 Signed Impressions: Service Date/Time: Tuesday, December 22, 2015 09:22 - CONCLUSION: Normal MRV. Jonel Jones Jr., MD Objective Remarks GENERAL: Elderly patient, in no acute distress. SKIN: Warm and dry. Sacral wound, approximately 1" x 0.5" packed with iodoform , draining small to moderate amount of red drainage. Periwound is dark, non- blanchable. HEAD: Normocephalic. Atraumatic. EYES: No scleral icterus. No injection or drainage. NECK: Supple, trachea midline. No JVD. Tracheostomy in place CARDIOVASCULAR: Regular rate and rhythm without murmurs, gallops, or rubs. RESPIRATORY: Breath sounds equal bilaterally. No accessory muscle use. Trach in place. GASTROINTESTINAL: Abdomen soft, non-tender, nondistended. Normoactive bowel sounds 4. PEG in place. MUSCULOSKELETAL: Extremities without clubbing, cyanosis, or edema. NEUROLOGICAL: Does not spontaneously move extremities, Nonverbal. ? tracking with eyes. 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 Significant residual cognitive deficit. -Nonverbal at this time; appears to be in a locked in state. -Continue Keppra and Coumadin- Palliative care following. Monitor Keppra, last level 03/08 was 15.4. INR 1.8 today. - Neurology following, continue Keppra and coumadin. GI/Nutrition: Previous PEG tube exchanged by GI at bedside 03/30/2016. Appreciate dietary recommendations; Nepro tube feedings for sodium content to continue at 55 mL, hour. Respiratory failure: Secondary to CVA. Patient is status post tracheostomy. Continue pulmonary toilet and neb treatments as needed. Pulmonary following. - Levsin PRN secretions. Depression: Continue Paxil. A-fib: continue Lopressor, cardizem, warfarin with INR/PT monitoring. Echocardiogram completed in November shows preserved EF. Pharmacy assisting with Coumadin dosing to keep therapeutic. UTI: Resolved. Urine culture with Klebsiella on 01/31 and repeat on 03/06, 04/03 negative. Arevalo replaced on 03/07. Coccyx pressure ulcer: Plastic surgery recommendations appreciated. Wound care nurse input appreciated and recommended continue current treatment per protocol ; repositioning Q2-3H; Creel Cleaner consult. Concern over increased amount of codi red blood on dressing; patient is on blood thinners. H&H is noted to be slowly trending downwards. Dr. Yoder ordered CT abdomen and pelvisshowed 6.4 cm necrotic mass or abscess in the soft tissues posteriorly just below the sacrum associated with some bony destructive change of the lower most sacrum and coccyx with inflammatory changes extending into the ischiorectal fossa and into the presacral retroperitoneum predominantly on the left side. There is associated fairly marked mural thickening of the anal verge and rectum. The colorectal surgery consulted. Due to bony involvement, may consider starting patient on treatment for osteomyelitis; deferred to ID/Dr. Yoder recommendations. History of Non-Hodgkin lymphoma: s/p brain biopsy on December 13, by Neurosurgery, Dr. Marin, Pathology consistent with acute infarct without evidence of lymphoma -Seen by Oncology, Dr. Whyte, who has signed off for current admission. DM: Hemoglobin A1c is 7.0. Continue Levemir with sliding scale insulin- monitor and adjust the regimen as needed. Blood sugar 136 this morning. Pneumonia with MRSA: patient having fevers 02/27-03/08, Blood cultures on 03/03 grew gram-negative rods in 1 out of 4 bottles, repeat blood cultures 03/06 negative. Sputum culture 03/08 with MRSA. Infectious disease consulted, Bactrim and Flagyl completed 03/14, Vanco completed 03/17. Do not repeat culture unless fevers return, per ID. Fever with MRSA in the sputum, tracheobronchitis- recultured 04/03/16. Chest x- ray 04/05 was clear. Blood cultures negative. Started on zyvox- to take until - ID is following (Dr. Liu). DVT prophylaxis: Full anticoagulation with Coumadin. INR therapeutic Dry eyessister requesting eyedrops for symptomatic relief. Lacri-Lube ordered. Speech therapy consulted to evaluate,passy-mikey valve trial- recommended the patient is not a candidate for ST at this time. CBC BMP as needed. Care was discussed with patient, family, RN, Dr. Espino Discharge Planning Patient was approved for Medicaid, SSI pending. Will need long-term SNF placement. Attending Statement Attestation Patient seen and examined with RHIANNA Awad. The exam, history, and the medical decision-making described in the above note were completed with the assistance of the dictating practitioner. I attest that I had a face-to- face encounter with the patient on the same day, and personally performed all of the history, exam, or medical decision making. Discussed case with him thoroughly after seeing the patient, reviewed and agreed with the plan. Please see addendum in History, Physical examination and Plan. See below for any errata /additional input: No radiodense, no fever. Patient's mental status about the same, close his eyes on command but otherwise nonverbal. Not in distress Close his eyes on command Regular rate and rhythm signs or breath sounds, poor effort Abdomen soft and nontender Alert awake, nonverbal. Coccyx pressure ulcer: CT of the abdomen showed a necrotic mass about 6.4 cm posteriorly just below the sacrum with bony destructive change. Plastic surgery following and would care. Colorectal surgery was also been consulted. Patient might need treatment for osteomyelitis, continue Zyvox for now for MRSA PNA . Infectious disease on board/consult. Problem Qualifiers (1) DM (diabetes mellitus): Qualified Code: E11.9 - Type 2 diabetes mellitus without complications Melly Collins Apr 13, 2016 10:03 Radha Espino MD Apr 13, 2016 15:01
--- NOTE | 2016-04-13 14:26 | PD.PLAS.PN ---
Subjective Remarks Patient stable. Family here from [place] - relative is a physician - internal med and now does wound care Discussed the current findings, copy of CT slices and current labs shown. Wound dressing changed - Betadine packing done today. Awaiting Colorectal consult - earliest available 04/15/16Friday, Last Hb 8.1 On Zyvox. To get wound cultures next dressing change or an actual bone biopsy if he goes to the OR with colorectal surgery. Current drainage is all blood - mostly venous. No pus seen, packing smells of decomposing blood clinically Vital Signs Date Time Temp Pulse Resp B/P Pulse Ox O2 Delivery O2 Flow Rate FiO2 04/13/16 13:57 96 T-piece 28 04/13/16 13:57 96 T-piece 28 04/13/16 12:00 97.6 98 19 112/67 99 04/13/16 08:03 96 T-Piece 5.00 21 04/13/16 08:00 97.1 106 22 108/76 98 04/13/16 04:54 98.4 94 20 125/67 100 04/13/16 00:00 97.8 90 21 106/62 97 04/12/16 21:39 94 T-piece 6.00 21 04/12/16 21:39 94 T-piece 6.00 21 04/12/16 20:00 98 T-Piece 5.00 21 04/12/16 20:00 114 04/12/16 20:00 96.4 97 21 123/72 97 04/12/16 16:00 98.1 96 22 118/65 98 I/O 04/12/16 04/12/16 04/12/16 04/13/16 04/13/16 04/13/16 06:59 14:59 22:59 06:59 14:59 22:59 Output Total 400 ml 1100 ml 650 ml Balance -400 ml -1100 ml -650 ml Output Urine Total 400 ml 1100 ml 650 ml # Bowel Movements 2 2 1 Laboratory Tests Test 04/12/16 04/13/16 04/13/16 18:17 07:15 07:45 Blood Type AB POSITIVE Antibody Screen NEGATIVE Prothrombin Time 19.7 Prothromb Time International 1.8 Ratio White Blood Count 6.4 Red Blood Count 3.50 Hemoglobin 8.1 Hematocrit 25.7 Mean Corpuscular Volume 73.3 Mean Corpuscular Hemoglobin 23.0 Mean Corpuscular Hemoglobin 31.4 Concent Red Cell Distribution Width 20.0 Platelet Count 310 Mean Platelet Volume 8.0 Result Diagram: 04/13/16 0745 04/11/16 1002 Cecilio Yoder MD Apr 13, 2016 14:26
[2016-04-13] MEDS: ACETAMINOPHEN/HYDROcodone 325 MG/5 MG TAB PO PRN (15:01)
[2016-04-13] MEDS: PARoxetine HCL SUSP 20 MG/10 ML UDC PEG SCH (18:21)
[2016-04-13] MEDS: INSULIN DETEMIR 100 UNITS/ML VIAL SQ SCH (20:03)
[2016-04-14] VITALS (10 sets, daily range): BP systolic 125–134; BP diastolic 64–82; PULSE 93–122; RESP 17–29; TEMP 97.3–98.9; O2SAT 95–100
[2016-04-14] MEDS: FREE WATER TUBE SCH ×5 (03:47→19:38)
[2016-04-14] MEDS: ACETIC ACID 0.25% SOLN 1000 ML IRR BTL IRRIGATION SCH ×2 (06:07→14:00)
[2016-04-14] MEDS: INSULIN ASPART SUPPLEMENTAL SCALE SQ SCH ×3 (06:32→20:42)
[2016-04-14] MEDS: SENNOSIDES SYRUP 8.8 MG/5 ML CUP TUBE SCH (07:43)
[2016-04-14] MEDS: DILTIAZEM-CD 120 MG CAP ER PO SCH (07:43)
[2016-04-14] MEDS: LINEZOLID 600 MG TAB PO SCH ×2 (07:43→21:09)
[2016-04-14] MEDS: RANITIDINE HCL SYRUP 150 MG/10 ML UDC PO SCH (07:43)
[2016-04-14] MEDS: METOPROLOL TARTRATE 50 MG TAB PO SCH ×2 (07:43→21:09)
[2016-04-14] MEDS: levETIRAcetam 500 MG/5 ML UDC TUBE SCH ×2 (07:43→21:08)
[2016-04-14] MEDS: ARTIFICIAL TEARS OPTH OINT 3.5 APPLIC/3.5 GM TUBO EACH EYE SCH ×2 (08:03→21:09)
[2016-04-14] MEDS: NYSTATIN 100,000 U/GM PWD 15 GM BTL TOPICAL SCH ×2 (08:03→21:09)
[2016-04-14 08:06] LABS: HEMATOCRIT 29.8 % (39.0-51.0); REVIEW FLAG FINAL
[2016-04-14 08:06] LABS: INTERNATIONAL NORMALIZED RATIO 1.7 RATIO
[2016-04-14] MEDS: ACETAMINOPHEN/HYDROcodone 325 MG/5 MG TAB PO PRN (09:47)
--- NOTE | 2016-04-14 09:50 | PD.PLAS.PN ---
Subjective Remarks Patient stable, last Hb 9.1 No fever Dressing changed - approx 50 cc fresh dark blood loss, cultures x2 taken. Repacked with saline. To wait for the colorectal surgeon consult tomorrow. I will be signing off tomorrow as well - Wound care physician to resume care. Discussed current plan with a family member - she is also a physician, not in practice here in the [facility] The back side wound can be opened wide and excise the skin edges to allow better inside care, possible biopsy of the cavity ragland and bone at the same time - In case of a malignant tumor - the prognosis can be poor - family can decide further care and may need a transfer to a tertiary care center if they still want to treat. If it is a non-malignant cavity - a wound vac would be a much better option to prevent the blood loss at each dressing change - can be on low power suction to reduce drawing / draining blood into the vac machine. If there is any surgical options from inside the perineum or through the abdomen - it will be as per the advice from the colorectal surgeon. Thank you for the consult. Vital Signs Date Time Temp Pulse Resp B/P Pulse Ox O2 Delivery O2 Flow Rate FiO2 04/14/16 09:21 97.3 112 18 128/79 99 04/14/16 08:12 T-Piece 5.00 21 04/14/16 05:00 97.7 106 22 125/73 100 04/13/16 22:45 97.0 91 20 121/67 97 04/13/16 21:30 98.1 110 20 119/71 98 04/13/16 21:24 97 21 04/13/16 20:00 T-Piece 5.00 21 04/13/16 19:27 104 04/13/16 16:00 97.2 108 20 91/52 98 04/13/16 15:56 106 04/13/16 13:57 96 T-piece 28 04/13/16 13:57 96 T-piece 21 04/13/16 12:00 97.6 98 19 112/67 99 I/O 04/13/16 04/13/16 04/13/16 04/14/16 04/14/16 04/14/16 07:00 15:00 23:00 07:00 15:00 23:00 Intake Total 0 ml 0 ml Output Total 650 ml 950 ml 600 ml 1200 ml Balance -650 ml -950 ml -600 ml -1200 ml Intake Oral 0 ml 0 ml Output Urine Total 650 ml 950 ml 600 ml 1200 ml # Bowel Movements 1 3 0 1 Laboratory Tests Test 04/14/16 04/14/16 06:53 07:30 Hemoglobin 9.5 Hematocrit 29.8 Prothrombin Time 18.0 Prothromb Time International 1.7 Ratio Result Diagram: 04/14/16 0653 04/11/16 1002 Cecilio Yoder MD Apr 14, 2016 09:50
--- NOTE | 2016-04-14 14:39 | HHI.PR ---
Subjective Remarks Follow-up for tachycardia, sacral would Status post change of dressings and cleaning today per plastic surgery. Heart rate has been in the 110s to 120s at times especially when agitated. Afebrile, making urine. Objective Vitals Vital Signs Date Time Temp Pulse Resp B/P Pulse Ox O2 Delivery O2 Flow Rate FiO2 04/14/16 13:03 97.9 93 17 130/66 95 04/14/16 11:31 105 04/14/16 11:15 99 T-piece 5.00 21 04/14/16 11:15 99 T-piece 5.00 21 04/14/16 09:21 97.3 112 18 128/79 99 04/14/16 08:12 T-Piece 5.00 21 04/14/16 05:00 97.7 106 22 125/73 100 04/13/16 22:45 97.0 91 20 121/67 97 04/13/16 21:30 98.1 110 20 119/71 98 04/13/16 21:24 97 21 04/13/16 20:00 T-Piece 5.00 21 04/13/16 19:27 104 04/13/16 16:00 97.2 108 20 91/52 98 04/13/16 15:56 106 I/O 04/13/16 04/13/16 04/13/16 04/14/16 04/14/16 04/14/16 07:00 15:00 23:00 07:00 15:00 23:00 Intake Total 0 ml 0 ml Output Total 650 ml 950 ml 600 ml 1200 ml Balance -650 ml -950 ml -600 ml -1200 ml Intake Oral 0 ml 0 ml Output Urine Total 650 ml 950 ml 600 ml 1200 ml # Bowel Movements 1 3 0 1 Result Diagram: 04/14/16 0653 04/11/16 1002 Objective Remarks GENERAL: Elderly patient, in no acute distress. SKIN: Warm and dry. Sacral wound, approximately 1" x 0.5", dressings in place. Replace today. HEAD: Normocephalic. Atraumatic. EYES: No scleral icterus. No injection or drainage. NECK: Supple, trachea midline. No JVD. Tracheostomy in place CARDIOVASCULAR: Regular rate and rhythm without murmurs, gallops, or rubs. RESPIRATORY: Breath sounds equal bilaterally. No accessory muscle use. Trach in place. GASTROINTESTINAL: Abdomen soft, non-tender, nondistended. Normoactive bowel sounds 4. PEG in place. MUSCULOSKELETAL: Extremities without clubbing, cyanosis, or edema. NEUROLOGICAL: Does not spontaneously move extremities, Nonverbal. ? tracking with eyes. 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 Significant residual cognitive deficit. Nonverbal at this time. Continue Keppra, Coumadin, positive care following. Monitor INR. GI/Nutrition: Previous PEG tube exchanged by GI at bedside 03/30/2016. Appreciate dietary recommendations; Nepro tube feedings for sodium content to continue at 55 mL, hour. Respiratory failure: Secondary to CVA. Patient is status post tracheostomy. Continue pulmonary toilet and neb treatments as needed. Pulmonary following. Levsin for secretions Depression: Continue Paxil. A-fib: continue Lopressor, increase Cardizem to 180 mg daily, heart rate is been difficult to control, continue Coumadin. Echocardiogram completed in November shows preserved EF. Pharmacy assisting with Coumadin dosing to keep therapeutic. UTI: Resolved. Urine culture with Klebsiella on 01/31 and repeat on 03/06, 04/03 negative. Arevalo replaced on 03/07. Coccyx pressure ulcer:Wound care nurse input appreciated and recommended continue current treatment per protocol; repositioning Q2-3H; Service [employer] consult. Concern over increased amount of codi red blood on dressing; patient is on blood thinners. Dr. Yoder ordered CT abdomen and pelvisshowed 6.4 cm necrotic mass or abscess in the soft tissues posteriorly just below the sacrum associated with some bony destructive change of the lower most sacrum and coccyx with inflammatory changes extending into the ischiorectal fossa and into the presacral retroperitoneum predominantly on the left side. There is associated fairly marked mural thickening of the anal verge and rectum. The colorectal surgery consulted, awaiting input for tomorrow. Status post cleaning her wound today by Dr. Castillo from plastic surgery, they have signed off and continue wound care per wound care nurse. Continue Zyvox for now. There is a suspicion for malignancy versus osteomyelitis. Infectious disease following History of Non-Hodgkin lymphoma: s/p brain biopsy on December 13, by Neurosurgery, Dr. Marin, Pathology consistent with acute infarct without evidence of lymphoma. Seen by Oncology, Dr. Whyte, who has signed off for current admission. DM: Hemoglobin A1c is 7.0. Continue Levemir with sliding scale insulin- monitor and adjust the regimen as needed. Blood sugar 136 this morning. Pneumonia with MRSA: patient having fevers 02/27-03/08, Blood cultures on 03/03 grew gram-negative rods in 1 out of 4 bottles, repeat blood cultures 03/06 negative. Sputum culture 03/08 with MRSA. Infectious disease consulted, Bactrim and Flagyl completed 03/14, Vanco completed 03/17. Do not repeat culture unless fevers return, per ID. Fever with MRSA in the sputum, tracheobronchitis- recultured 04/03/16. Chest x-ray 04/05 was clear. Blood cultures negative. Started on zyvox- to take until 04/15- ID is following (Dr. Liu). Speech therapy consulted to evaluate,passy-mikey valve trial- recommended the patient is not a candidate for ST at this time. DVT prophylaxis: Full anticoagulation with Coumadin. INR therapeutic Discussed with family. Problem Qualifiers (1) DM (diabetes mellitus): Qualified Code: E11.9 - Type 2 diabetes mellitus without complications Radha Espino MD Apr 14, 2016 14:39
[2016-04-14 17:15] LABS: BLOOD GAS BASE EXCESS 2.1 mmol/L (-2-2); BLOOD GAS CARBOXYHEMOGLOBIN 1.8 % (0-4); BLOOD GAS HCO3 26 mmol/L (22-26); BLOOD GAS METHEMOGLOBIN 0.3 % (0-2); BLOOD GAS O2 HGB SATURATION 93 % (90-100); BLOOD GAS OXYGEN CONTENT 14.3 Vol % (12.0-20.0); BLOOD GAS PCO2 36 mmHg (38-42); BLOOD GAS PO2 76 mmHg (61-120); BLOOD GAS TOTAL HGB 10.9 G/DL (12.0-16.0); CRITICAL VALUE NO; TEMP CORR TO 98.6
[2016-04-14 17:16] LABS: DRAW SITE RT RADIAL; FIO2 28 %; NUMBER OF ARTERIAL PUNCTURES 1; OXYGEN DEVICE T-PIECE; STAT YES; ULNAR PULSE PRESENT
[2016-04-14] MEDS: PARoxetine HCL SUSP 20 MG/10 ML UDC PEG SCH (19:00)
--- NOTE | 2016-04-14 19:02 | RADRPT ---
EXAM DATE/TIME: 04/14/2016 17:24 [facility] COMPARISON: CHEST SINGLE AP, April 05, 2016, 19:20. INDICATIONS : Aspiration. MEDICAL HISTORY : Hypertension. Diabetes mellitus type II. Lymphoma. SURGICAL HISTORY : None. ENCOUNTER: Initial ACUITY: 1 day PAIN SCORE: Non-responsive. LOCATION: Bilateral chest FINDINGS: A single view of the chest demonstrates tracheostomy in satisfactory position. Minimal basilar opacit y most characteristic of atelectasis and scarring. No effusion. No pneumothorax. CONCLUSION: 1. Minimal basilar opacity most characteristic of atelectasis and scarring. No effusion or pneumothor ax. Durga Dotson MD on April 14, 2016 at 18:59 Board Certified Radiologist. This report was verified electronically.
[2016-04-14] MEDS: INSULIN DETEMIR 100 UNITS/ML VIAL SQ SCH (21:00)
[2016-04-15] VITALS (15 sets, daily range): BP systolic 100–118; BP diastolic 59–69; PULSE 80–131; RESP 12–34; TEMP 97.4–100; O2SAT 95–100
[2016-04-15] MEDS: FREE WATER TUBE SCH ×6 (04:00→20:00)
[2016-04-15 05:22] LABS: INTERNATIONAL NORMALIZED RATIO 1.5 RATIO
[2016-04-15 05:33] LABS: BICARBONATE 27.4 MEQ/L (21.0-32.0); POTASSIUM 4.1 MEQ/L (3.5-5.1)
[2016-04-15] MEDS: INSULIN ASPART SUPPLEMENTAL SCALE SQ SCH ×4 (05:56→21:00)
[2016-04-15] MEDS: ACETIC ACID 0.25% SOLN 1000 ML IRR BTL IRRIGATION SCH ×4 (05:56→22:00)
[2016-04-15 06:07] LABS: BASOPHIL # 0.1 TH/MM3 (0-0.2); EOSINOPHIL # 0.1 TH/MM3 (0-0.4); EOSINOPHIL % 1.5 % (0.0-4.0); HEMATOCRIT 27.8 % (39.0-51.0); HEMO FLAGS AUTO DIFF; LYMPH % 21.3 % (9.0-44.0); LYMPHOCYTE # 1.3 TH/MM3 (1.0-4.8); MEAN CELL VOLUME 72.8 FL (80.0-100.0); MEAN CORPUSCULAR HEMOGLOBIN 22.8 PG (27.0-34.0); MEAN CORPUSCULAR HGB CONC 31.4 % (32.0-36.0); MONO % 9.3 % (0.0-8.0); NEUT % 66.9 % (16.0-70.0); PLATELET COUNT 282 TH/MM3 (150-450); RED BLOOD COUNT 3.81 MIL/MM3 (4.50-5.90); RED CELL DISTRIBUTION WIDTH 20.8 % (11.6-17.2)
[2016-04-15 07:11] LABS: SCAN/DIFF AUTO DIFF CONFIRMED
[2016-04-15] MEDS: SENNOSIDES SYRUP 8.8 MG/5 ML CUP TUBE SCH (08:56)
[2016-04-15] MEDS: METOPROLOL TARTRATE 50 MG TAB PO SCH ×2 (08:56→21:03)
[2016-04-15] MEDS: ARTIFICIAL TEARS OPTH OINT 3.5 APPLIC/3.5 GM TUBO EACH EYE SCH ×2 (08:57→21:00)
[2016-04-15] MEDS: RANITIDINE HCL SYRUP 150 MG/10 ML UDC PO SCH (08:57)
[2016-04-15] MEDS: levETIRAcetam 500 MG/5 ML UDC TUBE SCH ×2 (08:57→21:03)
[2016-04-15] MEDS: ACETAMINOPHEN/HYDROcodone 325 MG/5 MG TAB PO PRN (08:57)
[2016-04-15] MEDS: NYSTATIN 100,000 U/GM PWD 15 GM BTL TOPICAL SCH ×2 (08:57→21:00)
[2016-04-15] MEDS: LINEZOLID 600 MG TAB PO SCH ×2 (09:00→21:03)
--- NOTE | 2016-04-15 10:04 | HHI.PR ---
Subjective Remarks Follow-up for nausea and vomiting No further nausea and vomiting since last night. Tube feeds still on hold. Tachycardic, heart rate in the 130s, no fever or chills. No increased secretions. Mental status about the same, close his eyes on command. Objective Vitals Vital Signs Date Time Temp Pulse Resp B/P Pulse Ox O2 Delivery O2 Flow Rate FiO2 04/15/16 08:00 131 04/15/16 08:00 98.6 131 34 115/69 95 04/15/16 07:00 100 T-Piece 28 04/15/16 06:00 108 04/15/16 05:59 108 04/15/16 04:00 104 04/15/16 04:00 98.8 104 26 100/65 100 04/15/16 02:00 112 04/15/16 00:00 98.5 100 26 115/66 96 04/15/16 00:00 99 T-Piece 28 04/15/16 00:00 95 04/14/16 22:00 97 04/14/16 20:00 98.9 122 29 134/82 98 04/14/16 20:00 122 04/14/16 19:00 99 T-Piece 28 04/14/16 18:00 115 04/14/16 16:40 116 21 128/80 98 04/14/16 16:40 97 T-Piece 04/14/16 16:40 116 04/14/16 16:30 119 22 133/64 98 04/14/16 13:03 97.9 93 17 130/66 95 04/14/16 11:31 105 04/14/16 11:15 99 T-piece 5.00 21 04/14/16 11:15 99 T-piece 5.00 21 I/O 04/14/16 04/14/16 04/14/16 04/15/16 04/15/16 04/15/16 07:00 15:00 23:00 07:00 15:00 23:00 Intake Total 0 ml 0 ml Output Total 1200 ml 200 ml 275 ml Balance -1200 ml -200 ml -275 ml Intake Oral 0 ml Tube Feeding 0 ml Output Urine Total 1200 ml 200 ml 275 ml # Bowel Movements 1 0 0 Result Diagram: 04/15/16 0412 04/15/16 041 Objective Remarks GENERAL: Elderly patient SKIN: Warm and dry. Sacral wound, approximately 1" x 0.5", dressings in place. Replace today. HEAD: Normocephalic. Atraumatic. EYES: No scleral icterus. No injection or drainage. NECK: Supple. Tracheostomy in place CARDIOVASCULAR: Tachycardic, regular rhythm without murmurs, gallops, or rubs. RESPIRATORY: Breath sounds equal bilaterally. No accessory muscle use. Trach in place. GASTROINTESTINAL: Abdomen soft, non-tender, nondistended. Normoactive bowel sounds 4. PEG in place. MUSCULOSKELETAL: Extremities without clubbing, cyanosis, or edema. NEUROLOGICAL: Does not spontaneously move extremities, Nonverbal. Close his eyes on command. 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 Significant residual cognitive deficit. Nonverbal at this time. Continue Keppra, Coumadin, positive care following. Monitor INR. Nausea and vomiting-doubt ileus, good bowel sounds. Had 4 bowel movements yesterday. Tube feeds on hold, start to consider if no further nausea and vomiting. Discussed with RN. Start tube feeds slowly. Chest x-ray only showed atelectasis. Poor urine output but nonoliguric, start D5 and S4 now, check CBC and BMP tomorrow. GI/Nutrition: Previous PEG tube exchanged by GI at bedside 03/30/2016. Appreciate dietary recommendations; Nepro tube feedings for sodium content to continue at 55 mL, hour. Respiratory failure: Secondary to CVA. Patient is status post tracheostomy. Continue pulmonary toilet and neb treatments as needed. Pulmonary following. Levsin for secretions Depression: Continue Paxil. A-fib: continue Lopressor, increase Cardizem to 240 mg daily, heart rate is been difficult to control, continue Coumadin. Echocardiogram completed in November shows preserved EF. Pharmacy assisting with Coumadin dosing to keep therapeutic. UTI: Resolved. Urine culture with Klebsiella on 01/31 and repeat on 03/06, 04/03 negative. Arevalo replaced on 03/07. Coccyx pressure ulcer:Wound care nurse input appreciated and recommended continue current treatment per protocol; repositioning Q2-3H; [employer] consult. Concern over increased amount of codi red blood on dressing; patient is on blood thinners. Dr. Yoder ordered CT abdomen and pelvisshowed 6.4 cm necrotic mass or abscess in the soft tissues posteriorly just below the sacrum associated with some bony destructive change of the lower most sacrum and coccyx with inflammatory changes extending into the ischiorectal fossa and into the presacral retroperitoneum predominantly on the left side. There is associated fairly marked mural thickening of the anal verge and rectum. The colorectal surgery consulted, awaiting input for tomorrow. Status post cleaning her wound today by Dr. Yoder from plastic surgery, they have signed off and continue wound care per wound care nurse. Continue Zyvox for now. There is a suspicion for malignancy versus osteomyelitis. Infectious disease following, will speak with infectious disease today. History of Non-Hodgkin lymphoma: s/p brain biopsy on December 13, by Neurosurgery, Dr. Marin, Pathology consistent with acute infarct without evidence of lymphoma. Seen by Oncology, Dr. Whyte, who has signed off for current admission. DM: Hemoglobin A1c is 7.0. Continue Levemir with sliding scale insulin- monitor and adjust the regimen as needed. Blood sugar 136 this morning. Pneumonia with MRSA: patient having fevers 02/27-03/08, Blood cultures on 03/03 grew gram-negative rods in 1 out of 4 bottles, repeat blood cultures 03/06 negative. Sputum culture 03/08 with MRSA. Infectious disease consulted, Bactrim and Flagyl completed 03/14, Vanco completed 03/17. Do not repeat culture unless fevers return, per ID. Fever with MRSA in the sputum, tracheobronchitis- recultured 04/03/16. Chest x-ray 04/05 was clear. Blood cultures negative. Started on zyvox- to take until 04/15- ID is following (Dr. Liu). Speech therapy consulted to evaluate,passy-mikey valve trial- recommended the patient is not a candidate for ST at this time. DVT prophylaxis: Full anticoagulation with Coumadin. INR therapeutic Discussed with family and nurse. Keep in the [facility], possible transfer tomorrow. Problem Qualifiers (1) DM (diabetes mellitus): Qualified Code: E11.9 - Type 2 diabetes mellitus without complications Radha Espino MD Apr 15, 2016 10:04
[2016-04-15] MEDS: POTASSIUM CHLORIDE INJ 10 MEQ in DEXT 5%-NACL 0.9% 1000 ML INJ 1,000 ML IV SCH ×2 (11:05→21:03)
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
[2016-04-15] MEDS: DILTIAZEM HCL 60 MG TAB PO SCH ×3 (13:00→21:02)
--- NOTE | 2016-04-15 14:57 | HHI.HCPN ---
Reason for visit a. To assist with evaluation and management of symptoms including: dyspnea, encephalopathy, depression b. To assist medical decision maker(s) with: better understanding of current medical conditions; weighing benefits/burdens of medical treatment options; making medical treatment decisions. (Tiara Colin) Subjective/Interval History Pt seen today to follow up with family for requested periodic updates Patient was moved to the ICU yesterday for reported episode of emesis, tachycardic. Status post plastic surgery evaluation for sacral wound--Dr. Yoder evaluated patient indicates this is not a decubitus wound no surgical intervention planned from plastic surgery standpoint, patient with CT imaging of abdomen pelvis =questionable hematoma versus tumor necrosis large cavity near sacral region, + bony structure destruction. Gen. surgery was consulted for possible proctoscopy, this consultation was deferred for colorectal management. Colorectal consultation pending today. Wound was subsequently packed with gauze by plastic surgery. Still draining old red liquid per nursing. H&H have remained stable. Vital signs have been stable. Tube feeding has been resumed, no issues with emesis or high residual. Pt seen in room mother, significant other/ex- Leanne present. Leanne has questions regarding when colorectal consultation will occur advised likely should be some time today though I'm not certain of when. She has questions regarding wound care to sacral wound advised that that would be per plastic surgery, and colorectal may change recommendations. Review that vital signs currently stable, patient tolerating tube feeding, will likely transfer back out of the ICU if he remains stable. She indicates patient continues to communicate with them via blinking yes/no. She feels like patient left eye motion is "not as strong" or clear today, that maybe this eye is bothering him. She has concerns that the patient could get subsequent infections in sacral wounds. I did gently explore with her that patient will always be at risk for ongoing infections and complications related to bedbound status, prolonged hospitalization. To my exam his eyes are open, when I ask him yes/no questions he does blink though does not seem to be in correlation with my questions. Does not track examiner, appears to move eyes equally. No visible movement to commands. Trace edema upper extremities. History brought forward from initial consult by Rita MOCTEZUMA on 01/10/16: This 59-year-old patient was admitted on 12/21/15 via the ED for facial drooping. ED physician notes that patient and patients are poor historians, EMS reported the could not provide good timelines to them. Patient also reported headache, difficulty ambulating. He had known history of recent findings of mass in the brain. During ED course had deterioration of clinical condition and able to protect his airway, unable to follow commands patient was intubated and CT brain obtained. He was admitted for further evaluation and management to the ICU. Packaging Coordinator was consulted and following patient. Pathology on recent brain biopsy (12/13) still pending. CLINICAL/HOSPITAL COURSE: * CT brain= no focal or acute intracranial hemorrhage. New area decreased density in left occipital lobe suggestive of recent nonhemorrhagic infarct, decreased density in previously noted right occipital lobe has increased in size * Brain MRI = new area of restricted diffusion within left occipital lobe suggesting acute infarct. Interval enlargement of the area of restricted diffusion within right occipital lobe suggesting probable extension of right occipital and started on. Underlying enhancement of right occipital lobe is slightly worse than the previous exam and nonspecific. Biopsy has been performed and results are pending. Tiny focal area of restricted diffusion within right cerebellar hemisphere consistent with probable acute/subacute lacunar infarct. Signal abnormality in the SWI sequence within the right occipital lobe suggesting some hemorrhage in biopsy bed. No midline shift or extra-axial fluid collections. * CXR= no acute cardiopulmonary disease * -Neurology consulted, ordered MRA to look for vertebrobasilar stenosis, echo done last admission notes normal EF with normal valves and normal left atrial size. EEG also ordered. MR venogram ordered. EEG= abnormal study consistent with her encephalopathy. MRV indicated basilar occlusion; neurology notes discussion with family regarding chemical code only, also notes discussion regarding risks associated with the anticoagulates, was discussed with radiologist/INR recommended not helpful to extract basilar clot as this could result in patient's . It was felt the colin was infarcted. Further neurology notes "he could be locked in", is acting as if colin is infarcted. * Oncology known to patient also consulted for non-Hodgkin's lymphoma: Dr Whyte documents that there was no evidence of residual or recurrent disease on CT scans of chest, abdomen, pelvis done in October and November of this year. Pathology was still pending, had been sent to [facility] for second opinion. No acute oncology interventions recommended at that time, will follow. * 12/23 - 12/25 febrile. CPAP trials. Remains on vent off of sedation. Withdrawing to pain. Repeat brain MRI= evolving brainstem stroke. Neurology notes extensive discussion with family, notes discussion the patient is locked in but fully aware, family would like to see help patient does over the next 3 months. 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 Biopsy brain lesion appears consistent with acute infarct no lymphoma. Family desires ongoing aggressive measures, will proceed with tracheostomy. Sputum culture positive sensitive Klebsiella. * 01/01 tracheostomy, PEG tube placement * 01/04 trach collar trials, alternating with T piece. Low-grade fever 100.5. CXR = mild bibasilar atelectasis. Neuro: Spontaneously opening eyes, looking up / down, directionally to commands. * 01/07 still "locked in " , transferred off ICU to regular floor. * 01/08 pulmonology consulted-not CXR clear no evidence of pulmonary infection. He may have some underlying COPD recommends continued aerosol treatments. Further notes long discussion with family at bedside regarding tracheostomy, long-term use of trach until patient able to protect his airway, no further recommendations. Palliative care consulted to assist with clarification of goals of treatment. * (Tiara Colin) Advance Directives Living Will: Never completed Health Care Surrogate: Never completed (Tiara Colin) Objective Vital Signs Date Time Temp Pulse Resp B/P Pulse Ox O2 Delivery O2 Flow Rate FiO2 04/15/16 12:00 97.4 98 24 107/60 100 04/15/16 12:00 98 04/15/16 10:14 100 T-piece 5.00 28 04/15/16 10:00 104 04/15/16 08:00 131 04/15/16 08:00 98.6 131 34 115/69 95 04/15/16 07:00 100 T-Piece 28 04/15/16 06:00 108 04/15/16 05:59 108 04/15/16 04:00 104 04/15/16 04:00 98.8 104 26 100/65 100 04/15/16 02:00 112 04/15/16 00:00 98.5 100 26 115/66 96 04/15/16 00:00 99 T-Piece 28 04/15/16 00:00 95 04/14/16 22:00 97 04/14/16 20:00 98.9 122 29 134/82 98 04/14/16 20:00 122 04/14/16 19:00 99 T-Piece 28 04/14/16 18:00 115 04/14/16 16:40 116 21 128/80 98 04/14/16 16:40 97 T-Piece 28 04/14/16 16:40 116 04/14/16 16:30 119 22 133/64 98 Intake & Output 04/15/16 04/15/16 07:00 19:00 Intake Total 0 ml Output Total 475 ml Balance -475 ml Tube Feeding 0 ml Output Urine Total 475 ml # Bowel Movements 0 Physical Exam CONSTITUTIONAL/GENERAL: This is an adequately nourished patient, minimally interactive-eyes open does not track TUBES/LINES/DRAINS: Arevalo catheter, PEG tube, tracheostomy, SCDs, heel protection boots, on specialty air bed SKIN: No jaundice, rashes, or lesions.No wounds seen anteriorly--large wound reported to coccyx with significant ongoing oozing though I did not visualize. Skin temperature appropriate. Not diaphoretic. CARDIOVASCULAR: Regular rate and rhythm without murmurs. mildly tachycardic. Peripheral pulses symmetric. Trace peripheral edema upper extremities. RESPIRATORY/CHEST: Tracheostomy midline, no symptoms of problems around site. Symmetric, unlabored respirations. + moist cough. T piece, 28% FiO2. clear breath sounds, some course upper airway sounds. Breath sounds equal bilaterally. GASTROINTESTINAL: Abdomen soft, no apparent tenderness, nondistended. No palpable masses. Bowel sounds normoactive.tube feed infusing via PEG. MUSCULOSKELETAL: Extremities without clubbing, cyanosis,. Trace edema upper extremities No joint effusion noted. No mottling or clubbing.+ Muscle atrophy to all 4 extremities. NEUROLOGICAL: Eyes open. Does not track examiner. I'm not able to see clear yes /no blinking in response to questions. No response to stimuli. No movement of extremities, no following of commands. PSYCHIATRIC: Difficult to fully assess due to clinical condition. no evident anxiety . (Tiara Colin) Diagnostic Tests Laboratory Laboratory Tests Test 04/12/16 04/13/16 04/13/16 04/14/16 18:17 07:15 07:45 06:53 Blood Type AB POSITIVE Antibody Screen NEGATIVE Prothrombin Time 19.7 SEC (9.8-11.4) Prothromb Time International 1.8 RATIO Ratio White Blood Count 6.4 TH/MM3 (4.0-11.0) Red Blood Count 3.50 MIL/MM3 (4.50-5.90) Hemoglobin 8.1 GM/DL 9.5 GM/DL (13.0-17.0) (13.0-17.0) Hematocrit 25.7 % 29.8 % (39.0-51.0) (39.0-51.0) Mean Corpuscular Volume 73.3 FL (80.0-100.0) Mean Corpuscular Hemoglobin 23.0 PG (27.0-34.0) Mean Corpuscular Hemoglobin 31.4 % Concent (32.0-36.0) Red Cell Distribution Width 20.0 % (11.6-17.2) Platelet Count 310 TH/MM3 (150-450) Mean Platelet Volume 8.0 FL (7.0-11.0) Test 04/14/16 04/14/16 04/15/16 07:30 17:00 04:12 Prothrombin Time 18.0 SEC 16.0 SEC (9.8-11.4) (9.8-11.4) Prothromb Time International 1.7 RATIO 1.5 RATIO Ratio Blood Gas Puncture Site RT RADIAL Blood Gas Patient Temperature 98.6 Blood Gas HCO3 26 mmol/L (22-26) Blood Gas Base Excess 2.1 mmol/L (-2-2) Blood Gas Oxygen Saturation 93 % (90-100) Arterial Blood pH 7.46 (7.380-7.420) Arterial Blood Partial 36 mmHg (38-42) Pressure CO2 Arterial Blood Partial 76 mmHg Pressure O2 (61-120) Arterial Blood Oxygen Content 14.3 Vol % (12.0-20.0) Arterial Blood 1.8 % (0-4) Carboxyhemoglobin Arterial Blood Methemoglobin 0.3 % (0-2) Blood Gas Hemoglobin 10.9 G/DL (12.0-16.0) Oxygen Delivery Device T-PIECE Blood Gas Inspired Oxygen 28 % White Blood Count 6.0 TH/MM3 (4.0-11.0) Red Blood Count 3.81 MIL/MM3 (4.50-5.90) Hemoglobin 8.7 GM/DL (13.0-17.0) Hematocrit 27.8 % (39.0-51.0) Mean Corpuscular Volume 72.8 FL (80.0-100.0) Mean Corpuscular Hemoglobin 22.8 PG (27.0-34.0) Mean Corpuscular Hemoglobin 31.4 % Concent (32.0-36.0) Red Cell Distribution Width 20.8 % (11.6-17.2) Platelet Count 282 TH/MM3 (150-450) Mean Platelet Volume 7.7 FL (7.0-11.0) Neutrophils (%) (Auto) 66.9 % (16.0-70.0) Lymphocytes (%) (Auto) 21.3 % (9.0-44.0) Monocytes (%) (Auto) 9.3 % (0.0-8.0) Eosinophils (%) (Auto) 1.5 % (0.0-4.0) Basophils (%) (Auto) 1.0 % (0.0-2.0) Neutrophils # (Auto) 4.0 TH/MM3 (1.8-7.7) Lymphocytes # (Auto) 1.3 TH/MM3 (1.0-4.8) Monocytes # (Auto) 0.6 TH/MM3 (0-0.9) Eosinophils # (Auto) 0.1 TH/MM3 (0-0.4) Basophils # (Auto) 0.1 TH/MM3 (0-0.2) CBC Comment AUTO DIFF Differential Comment AUTO DIFF CONFIRMED Sodium Level 131 MEQ/L (136-145) Potassium Level 4.1 MEQ/L (3.5-5.1) Chloride Level 95 MEQ/L (98-107) Carbon Dioxide Level 27.4 MEQ/L (21.0-32.0) Anion Gap 9 MEQ/L (5-15) Blood Urea Nitrogen 12 MG/DL (7-18) Creatinine 0.64 MG/DL (0.60-1.30) Estimat Glomerular Filtration 128 ML/MIN Rate (>89) Random Glucose 130 MG/DL (74-106) Calcium Level 8.9 MG/DL (8.5-10.1) Magnesium Level 2.0 MG/DL (1.5-2.5) (Tiara Colin TEACHER PRIVATE) Result Diagram: 04/15/162 04/15/16411 Microbiology Microbiology Date/Time Procedure Status Source Growth 04/14/16 09:20 Gram Stain - Final Resulted Wound Buttock 04/14/16 09:20 Wound Culture - Preliminary Resulted Gram Negative Justo 04/14/16 09:20 Fungal Smear - Final Resulted Wound Buttock NO FUNGAL ELEMENTS SEEN. 04/14/16 09:20 Fungal Culture Resulted Wound Buttock Pending Imaging Last Impressions Chest X-Ray 04/14/16 0000 Signed Impressions: Service Date/Time: Thursday, April 14, 2016 17:24 - CONCLUSION: 1. Minimal basilar opacity most characteristic of atelectasis and scarring. No effusion or pneumothorax. Durga Dotson MD Abdomen/Pelvis CT 04/12/16 0000 Signed Impressions: Service Date/Time: Tuesday, April 12, 2016 20:52 - CONCLUSION: 1. 6.4 cm necrotic mass or abscess in the soft tissues posteriorly just below the sacrum associated with some bony destructive change of the lower most sacrum and coccyx with inflammatory changes extending into the ischiorectal fossa and into the presacral retroperitoneum predominantly on the left side. There is associated fairly marked mural thickening of the anal verge and rectum. 2. There is gastrostomy and Arevalo catheter present. Stable abdominal aortic aneurysm. Durga Dotson MD Head Magnetic Resonance Angiography 03/05/16 0000 Signed Impressions: Service Date/Time: Saturday, March 05, 2016 09:26 - CONCLUSION: Persistent high-grade subtotal occlusive stenotic lesions in the distal right vertebral artery and proximal basilar artery with significant improvement in flow and recanalization following initial presentation of thrombosis. Stable interstitial circulation without significant stenosis. Ernesto Klukarni MD Brain MRI 03/05/16 0000 Signed Impressions: Service Date/Time: Saturday, March 05, 2016 09:26 - CONCLUSION: Evolving brainstem and bilateral occipital lobe infarcts with evidence of subacute hemorrhagic products. There is decreasing restricted diffusion and increasing loss of volume characteristic of a subacute to chronic infarct. No evidence of acute infarct, acute hemorrhage mass or edema. Ernesto Kulkarni MD Head CT 01/16/16 0000 Signed Impressions: Service Date/Time: Saturday, January 16, 2016 10:51 - CONCLUSION: No extensive low density in the brainstem colin more prominent in the right the left extending into the right middle cerebellar peduncle consistent with brainstem infarct nonhemorrhagic acute Wellington West MD Abdomen X-Ray 01/14/16 0000 Signed Impressions: Service Date/Time: Thursday, January 14, 2016 10:19 - CONCLUSION: Moderate stool; otherwise, negative. 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 No evidence of carotid stenosis. Glen Zamora MD Head/Brain Mag Res Venography 12/22/15 0000 Signed Impressions: Service Date/Time: Tuesday, December 22, 2015 09:22 - CONCLUSION: Normal MRV. Jonel Jones Jr., MD Procedures * 01/01 tracheostomy, PEG tube placement . 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; EEG indicates encephalopathy, neuro following patient felt to be in a "locked-in "state (2) Non-Hodgkin lymphoma Comment: -In remission status post chemotherapy completed May 2015 (3) Acute respiratory failure Comment: Pulmonology following, medical management (4) A-fib (5) Status post stereotactic brain biopsy (6) Brain lesion Comment: Status post biopsy November 2015; pathology consistent with acute infarct without evidence of lymphoma (7) DM (diabetes mellitus) Symptom Scale: (1) Dysphagia Comment: Status post significant CVA, has had PEG tube placed- no improvement per ongoing ST eval (2) Dyspnea Comment: Respiratory failure secondary to CVA, status post tracheostomy, pulmonary following (3) Encephalopathy Comment: Significant CVA, "locked-in" state -- though pt not noted with consistent attempts to communicate. ? vegetative (4) Malnutrition Comment: Status post PEG tube placement. Episode of emesis yesterday, currently tolerating tube feeding without issue (5) Depression Comment: At risk for related to "locked in status", communication difficulties , situational, but would likely benefit from anti-depressant Pertinent Non-Medical Issues * Psychosocial:Mr. Flores is originally from [place]. He moved to the [place] around 35 years ago, first to [place] and later to [place]. He is not legally but remains with his ex-, Leanne. They have been together for 31+ years and have three children together: Leanne, Gerald, and Ginny. Gerald is currently in [facility] for work. Mr. Flores has 2 brothers and 7 sisters. His father is of old age. His mother is alive and was living with the patient. Greatly enjoys his family. Retired. 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 * Spiritual: * Legal:Patient due to clinical condition is currently unable to participate in medical decision making. Not clear if or when he will regain this ability. Family does not believe he has completed advance directives. per [place] Statutes, medical proxy decision making would fall to the majority of adult children, as Mr. Flores is not legally . * Ethical issues impacting care: Important Contacts Leanne, daughter: [phone] Ginny, daughter: [phone] Gerald, son: currently in [facility] for work but has communication with his siblings. Leanne, ex-: [phone] Prognosis This patient has had 20 day hospital course thus far, admitted on 62 for a large brainstem infarct, bilateral occipital infarcts. He has subsequently had ongoing encephalopathy and severe communication limitations, neurology feels he is in a "locked-in "state. He has suffered from respiratory failure likely secondary to significant CVA. Appears he should be able to survive this acute hospitalization, however not clear when or if he will regain ability to communicate, based on current assessments patient will require long-term care placement. He will remain high risk for potential competition/setbacks due to immobile status including infections, DVT etc. . Code Status: Full Code Plan * GOALS: Very aggressive. See family conference component on initial consult for additional detail. Meeting In summary: Initially they had many questions regarding admission and biopsy which occurred in November, they ask about differentials and decision making leading to the biopsy, and have many concerns regarding that clinical course--advised that I could not speak to any of those questions or processes as I was not involved in his care and decision making at that time, recommend them to direct those specific questions to those initial providers which provided those services. Otherwise review of conditions, goals as detailed in "issues discussed". Family expresses that Mr. Flores did remarkably well following his chemotherapy for lymphoma just last year, and that he had been doing fine until recent issue in November. They endorsed that he is a fighter, that he is a very optimistic person, and that they are certain he is "in there "and would want to continue fighting for whatever recovery he might have." They have many questions regarding rehabilitation services and placement as well as financial coverage for these services, advised that case management could assist them with the various applications which already in process, but that any placement would depend on funding, or alternatively [facility] placement which is up to any individual institution. They would like to maximize PT/OT/ST ongoing while here in the hospital. They also request courtesy consult of to follow him for pulmonary as he is known to the family through their islam. * 04/15/16-medical updated provided to significant other Leanne at bedside today. Colorectal surgery evaluation pending. Goals remain aggressive. * CODE STATUSfull code * Symptoms: == Dysphagia--Status post significant CVA, has had PEG tube placed; no improvement per ST following --trial with a senior valve, patient with no response or attempt to verbalize == Dyspnea --Respiratory failure secondary to CVA, status post tracheostomy, pulmonary following; currently no apparent distress/ O2 sats / O2 requirements stable == Encephalopathy--Significant CVA, "locked-in" state; follow-up MRI with no significant changes; family endorses patient continues to have limited communication via blinks and eye motion-- does not consistently attempt to communicate w therapies, ? vegetative == Malnutrition--Status post PEG tube placement. Episode of emesis yesterday , currently tolerating TF; having bowel movements == depression/anxiety -- At risk for related to "locked in status", communication difficulties, situational, but would likely benefit from anti- depressant. Family reports tearful at times when they talk to him. prev. started on celexa, then d/c per family request. On Paxil per family request. previously tearful at times during exam. No distress observed or reported today , ? Pain versus emotional distress. Will cont to evaluate. == Pain: Tearful,? At times blinks/looks up for yes to pain per family, nursing // nursing to administer PRN [place]. Potential sources would include large sacral wound, bedbound status. Nursing has expressed that they use PRN sparingly as family has concerns that too much will contribute to his lethargy/ decreased alertness. We'll continue to evaluate. * Palliative care will continue to follow during hospital course as condition evolves, to assist patient/decision-maker with understanding of medical conditions, weighing benefits/burdens of treatment options, for clarification of goals of treatment. Additionally will assist with any symptoms of palliative concern (Tiara Colin) Time Spent Total Floor Time (mins): 20 >50% Counseling/Coord of Care: Yes (discussed with primary nurse) (Tiara Colin) Attestation To help prompt me to consider important information that might be impacting today's encounter and assessment, information from prior notes written by myself or my colleagues may have been "brought forward" into today's note. My signature on this note, however, is an attestation that I personally performed the exam, history, and/or decision-making noted today, and, unless otherwise indicated, the interactions with patient, family, and staff as well as the review of records all occurred today. I also attest that the listed assessment and stated plan reflect my best clinical judgment today based on the combination of historical information, prior notes, and today's exam/ interactions. When time spent is documented, it refers only to time spent today by the signer, or if indicated, combined time spent today by collaborating physician/nurse practitioner. (Tiara Colin) Collaborating MD Comments Chart reviewed. Patient discussed with palliative care TEACHER PRIVATE. Above note reviewed and I concur. . (Cal Michelle MD) Tiara Colin Apr 15, 2016 14:57 Cal Michelle MD Jun 12, 2016 14:08
[2016-04-15] MEDS: PARoxetine HCL SUSP 20 MG/10 ML UDC PEG SCH ×2 (17:53→21:03)
[2016-04-15] MEDS: INSULIN DETEMIR 100 UNITS/ML VIAL SQ SCH (21:00)
[2016-04-16] VITALS (14 sets, daily range): BP systolic 104–127; BP diastolic 61–67; PULSE 82–112; RESP 16–28; TEMP 98.4–101.5; O2SAT 95–100
[2016-04-16] MEDS: FREE WATER TUBE SCH ×7 (04:00→20:00)
[2016-04-16 04:38] LABS: AUTOMATED NEUTROPHIL # 3.8 TH/MM3 (1.8-7.7); BASOPHIL # 0.1 TH/MM3 (0-0.2); BASOPHIL % 1.5 % (0.0-2.0); EOSINOPHIL # 0.1 TH/MM3 (0-0.4); EOSINOPHIL % 1.7 % (0.0-4.0); HEMATOCRIT 26.7 % (39.0-51.0); LYMPHOCYTE # 0.9 TH/MM3 (1.0-4.8); MEAN CELL VOLUME 74.4 FL (80.0-100.0); MEAN CORPUSCULAR HEMOGLOBIN 23.2 PG (27.0-34.0); MEAN CORPUSCULAR HGB CONC 31.2 % (32.0-36.0); MONO % 5.5 % (0.0-8.0); NEUT % 73.3 % (16.0-70.0); PLATELET COUNT 338 TH/MM3 (150-450); RED BLOOD COUNT 3.59 MIL/MM3 (4.50-5.90); WHITE BLOOD COUNT 5.2 TH/MM3 (4.0-11.0)
[2016-04-16 04:45] LABS: HEMO FLAGS AUTO DIFF
[2016-04-16 04:51] LABS: INTERNATIONAL NORMALIZED RATIO 1.5 RATIO; PROTHROMBIN TIME - PATIENT 16.2 SEC (9.8-11.4)
[2016-04-16 05:06] LABS: BICARBONATE 26.2 MEQ/L (21.0-32.0); MAGNESIUM 1.8 MG/DL (1.5-2.5); POTASSIUM 4.2 MEQ/L (3.5-5.1)
[2016-04-16] MEDS: INSULIN ASPART SUPPLEMENTAL SCALE SQ SCH ×4 (06:00→22:27)
[2016-04-16] MEDS: ACETIC ACID 0.25% SOLN 1000 ML IRR BTL IRRIGATION SCH ×3 (06:00→22:00)
[2016-04-16 07:11] LABS: SCAN/DIFF AUTO DIFF CONFIRMED
[2016-04-16] MEDS: NYSTATIN 100,000 U/GM PWD 15 GM BTL TOPICAL SCH ×2 (09:00→21:00)
[2016-04-16] MEDS: SENNOSIDES SYRUP 8.8 MG/5 ML CUP TUBE SCH (09:00)
[2016-04-16] MEDS: ARTIFICIAL TEARS OPTH OINT 3.5 APPLIC/3.5 GM TUBO EACH EYE SCH ×2 (09:00→21:00)
[2016-04-16] MEDS: POTASSIUM CHLORIDE INJ 10 MEQ in DEXT 5%-NACL 0.9% 1000 ML INJ 1,000 ML IV SCH (09:06)
--- NOTE | 2016-04-16 09:08 | HHI.PR ---
Subjective Remarks Follow-up for sacral wound bleeding and infection Hemoglobin relatively stable. No fever. No further vomiting. Tolerating tube feeds. Close his eyes on command. Objective Vitals Vital Signs Date Time Temp Pulse Resp B/P Pulse Ox O2 Delivery O2 Flow Rate FiO2 04/16/16 06:00 102 04/16/16 04:00 88 04/16/16 04:00 98.5 87 16 111/65 95 04/16/16 02:00 86 04/16/16 00:00 99.2 87 27 115/61 100 04/16/16 00:00 87 04/15/16 23:20 99 T-piece 28 04/15/16 22:00 81 04/15/16 20:00 100.0 80 23 118/63 97 04/15/16 20:00 80 04/15/16 19:00 97 T-Piece 28 04/15/16 18:00 100 04/15/16 16:00 92 04/15/16 16:00 97.6 95 12 106/59 99 04/15/16 15:00 100 04/15/16 12:00 97.4 98 24 107/60 100 04/15/16 12:00 98 04/15/16 10:14 100 T-piece 5.00 28 04/15/16 10:00 104 I/O 04/15/16 04/15/16 04/15/16 04/16/16 04/16/16 04/16/16 07:00 15:00 23:00 07:00 15:00 23:00 Intake Total 0 ml 1338 ml 1590 ml 1785 ml Output Total 275 ml 575 ml 350 ml 600 ml Balance -275 ml 763 ml 1240 ml 1185 ml Intake Oral 0 ml 0 ml IV Total 884 ml 575 ml 725 ml Tube Feeding 0 ml 24 ml 215 ml 260 ml Tube Irrigant 30 ml Other 400 ml 800 ml 800 ml Output Urine Total 275 ml 575 ml 350 ml 600 ml Stool Total 0 ml # Bowel Movements 0 2 Result Diagram: 04/16/1642004/16/16420 Objective Remarks GENERAL: Elderly patient SKIN: Warm and dry. Sacral wound, approximately 1" x 0.5", dressings in place. HEAD: Normocephalic. Atraumatic. EYES: No scleral icterus. No injection or drainage. NECK: Supple. Tracheostomy in place CARDIOVASCULAR: Borderline Tachycardic, regular rhythm without murmurs, gallops , or rubs. RESPIRATORY: Breath sounds equal bilaterally, poor effort. No accessory muscle use. Trach in place. GASTROINTESTINAL: Abdomen soft, non-tender, nondistended. Normoactive bowel sounds 4. PEG in place. MUSCULOSKELETAL: Extremities without clubbing, cyanosis, or edema. NEUROLOGICAL: Does not spontaneously move extremities, Nonverbal. Close his eyes on command. 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 Significant residual cognitive deficit. Nonverbal at this time. Continue Keppra, palliative care following. Coumadin on hold because of significant bleeding in his sacral wound. Will start Lovenox for now, hemoglobin stable. Nausea and vomiting-doubt ileus, good bowel sounds. Tube feeds restarted, tolerating. Discussed with RN. Chest x-ray only showed atelectasis. GI/Nutrition: Previous PEG tube exchanged by GI at bedside 03/30/2016. Appreciate dietary recommendations; Nepro tube feedings for sodium content to continue at 55 mL, hour. Respiratory failure: Secondary to CVA. Patient is status post tracheostomy. Continue pulmonary toilet and neb treatments as needed. Pulmonary following. Levsin for secretions Depression: Continue Paxil. A-fib: continue Lopressor, continue Cardizem to 240 mg daily, heart rate is been difficult to control, Coumadin on hold, Lovenox for now. Echocardiogram completed in November shows preserved EF. UTI: Resolved. Urine culture with Klebsiella on 01/31 and repeat on 03/06, 04/03 negative. Arevalo replaced on 03/07. Coccyx pressure ulcer:Wound care nurse input appreciated and recommended continue current treatment per protocol; repositioning Q2-3H; Concern over increased amount of codi red blood on dressing; Coumadin on hold. Hemoglobin stable, will start Lovenox for now. Dr. Yoder ordered CT abdomen and pelvis showed 6.4 cm necrotic mass or abscess in the soft tissues posteriorly just below the sacrum associated with some bony destructive change of the lower most sacrum and coccyx with inflammatory changes extending into the ischiorectal fossa and into the presacral retroperitoneum predominantly on the left side. There is associated fairly marked mural thickening of the anal verge and rectum. The colorectal surgery consulted, awaiting input. Dr. Yoder from plastic surgery has signed off and continue wound care per wound care nurse. Continue Zyvox for now. There is a suspicion for malignancy versus osteomyelitis. Infectious disease following. Wound culture grew gram-negative rods, will discuss with ID History of Non-Hodgkin lymphoma: s/p brain biopsy on December 13, by Neurosurgery, Dr. Marin, Pathology consistent with acute infarct without evidence of lymphoma. Seen by Oncology, Dr. Whyte, who has signed off for current admission. DM: Hemoglobin A1c is 7.0. Continue Levemir with sliding scale insulin- monitor and adjust the regimen as needed. Pneumonia with MRSA: patient having fevers 02/27-03/08, Blood cultures on 03/03 grew gram-negative rods in 1 out of 4 bottles, repeat blood cultures 03/06 negative. Sputum culture 03/08 with MRSA. Infectious disease consulted, Bactrim and Flagyl completed 03/14, Vanco completed 03/17. Do not repeat culture unless fevers return, per ID. Fever with MRSA in the sputum, tracheobronchitis- recultured 04/03/16. Chest x-ray 04/05 was clear. Blood cultures negative. Started on zyvox- to take until 04/15- ID is following (Dr. Liu). Speech therapy consulted to evaluate,passy-mikey valve trial- recommended the patient is not a candidate for ST at this time. Hyponatremia-start normal saline. DVT prophylaxis: Full anticoagulation with Lovenox, Coumadin on hold Discussed with family and nurse. . Transfer to [facility] Problem Qualifiers (1) DM (diabetes mellitus): Qualified Code: E11.9 - Type 2 diabetes mellitus without complications Radha Espino MD Apr 16, 2016 09:08
[2016-04-16] MEDS: LINEZOLID 600 MG TAB PO SCH (09:11)
[2016-04-16] MEDS: levETIRAcetam 500 MG/5 ML UDC TUBE SCH ×2 (09:11→21:13)
[2016-04-16] MEDS: DILTIAZEM HCL 60 MG TAB PO SCH ×4 (09:11→21:13)
[2016-04-16] MEDS: RANITIDINE HCL SYRUP 150 MG/10 ML UDC PO SCH (09:11)
[2016-04-16] MEDS: METOPROLOL TARTRATE 50 MG TAB PO SCH ×2 (09:11→21:13)
[2016-04-16] MEDS: ENOXAPARIN SODIUM 100 MG/ML SYRINGE SQ SCH ×2 (09:14→21:12)
[2016-04-16] MEDS: ACETAMINOPHEN 650 MG/20.3 ML UDC TUBE PRN (09:56)
[2016-04-16] MEDS: SODIUM CHLOR 0.9% 1000 ML INJ 1,000 ML IV SCH ×2 (09:57→21:55)
--- NOTE | 2016-04-16 12:08 | HHI.IDPN ---
Note Infectious Disease Note Chart reviewed. Patient now in ICU. Patient is in no distress. Resting comfortably. Afebrile. Not verbal. Necrotic mass at the ischiorectal fossa on CT. Culture sent from sacrum ulcer has Klebsiella. Has trach collar. Light yellow sputum occasional but mostly clear. Has lopez catheter with skip urine. This 60-year-old male was admitted to the hospital on December 20 with altered mental status. He was eventually found to have a CVA. He was recently diagnosed with stage III non-Hodgkin's lymphoma about a year ago. The patient was intubated and he underwent tracheostomy and feeding tube placement. He was diagnosed with an acute stroke. PAST MEDICAL HISTORY 1. Hypertension. 2. Stage III non-Hodgkin's lymphoma. 3. Diabetes mellitus. 4. Paroxysmal atrial fibrillation. 5. Brain biopsy in Nov, 2015. 6. History of left arm surgery. ALLERGIES NO KNOWN DRUG ALLERGIES. Current Medications Medications (Trade) Dose Ordered Sig/Junior Route PRN Reason Start Time Stop Time Status Last Admin Dose Admin IV Flush (NS Flush) 2 ml UNSCH PRN IVF FLUSH AFTER USING IV ACCESS 12/21/15 06:00 03/20/16 20:50 Dextrose (D50w (Vial) Inj) 25 ml UNSCH PRN IV PUSH HYPOGLYCEMIA-SEE COMMENTS 12/21/15 13:00 Glucagon (Glucagon Inj) 1 mg UNSCH PRN OTHER HYPOGLYCEMIA-SEE COMMENTS 12/21/15 13:00 Levetriacetam (Keppra Liq) 500 mg Q12HR TUBE 12/27/15 21:00 04/16/16 09:11 Acetaminophen (Tylenol 650 Mg/ 20 ml Liq) 650 mg Q6H PRN TUBE TEMP >100.4 12/30/15 15:15 04/16/16 09:56 Acetaminophen/ Hydrocodone Bitart 1 tab 1 tab Q6H PRN PO PAIN 12/31/15 15:00 04/15/16 08:57 Pharmacy Profile Note (Coumadin Consult Pharmacy) 0 ml @ 0 mls/hr UNSCH XX 01/04/16 12:30 Nystatin (Mycostatin Powder) 1 applic Q12HR TOPICAL 01/08/16 21:00 04/16/16 09:00 Miscellaneous (Pill Splitter) 1 ea UNSCH PRN OTHER SEE LABEL COMMENTS 01/14/16 08:30 Ranitidine HCl (Zantac Liq) 150 mg Q24H PO 01/18/16 09:00 04/16/16 09:11 Acetic Acid (Acetic Acid 0.25% Irr Btl) 10 ml Q8HR IRRIGATION 02/05/16 16:00 04/16/16 06:00 Sennosides (Senna Liq) 8.8 mg DAILY TUBE 02/21/16 09:00 04/15/16 08:56 Lorazepam (Ativan Inj) 0.5 mg Q4H PRN IV PUSH seizures 03/07/16 23:00 Paroxetine HCl (Paxil Liq) 20 mg DAILY@1900 PEG 03/12/16 19:00 04/15/16 21:03 Insulin Detemir (Levemir Inj) 35 units HS SQ 03/24/16 21:00 04/15/16 21:00 Metoprolol Tartrate (Lopressor) 75 mg BID PO 04/02/16 21:00 04/16/16 09:11 Linezolid (Zyvox) 600 mg Q12HR PO 04/05/16 15:00 04/16/16 09:11 Artificial Tears (Lacrilube Opht Oint) 1 applic Q12HR EACH EYE 04/10/16 11:00 04/16/16 09:00 Hyoscyamine Sulfate (Levsin) 0.25 mg Q4H PRN G-TUBE INCREASED SECRETIONS 04/11/16 10:30 Warfarin Sodium (Coumadin) 3 mg DAILY@16 PO 04/13/16 16:00 Hold Ondansetron HCl (Zofran Inj) 4 mg Q6HR PRN IV PUSH nausea/vomiting 04/14/16 19:45 Diltiazem HCl (Cardizem) 60 mg QID PO 04/15/16 13:00 04/16/16 09:11 Enoxaparin Sodium (Lovenox Inj) 90 mg Q12H SQ 04/16/16 09:00 04/16/16 09:14 Water 200 ml 200 ml Q4HR TUBE 04/16/16 12:00 04/16/16 09:00 Sodium Chloride (NS 1000 ml Inj) 1,000 ml @ 84 mls/hr [id number] IV 04/16/16 10:00 04/16/16 09:57 SOCIAL HISTORY . Positive tobacco use. No alcohol use. No illicit drugs. FAMILY HISTORY Unable to obtain. OBJECTIVE: Vital Signs Date Time Temp Pulse Resp B/P Pulse Ox O2 Delivery O2 Flow Rate FiO2 04/16/16 09:58 100 T-piece 5.00 28 04/16/16 07:30 99 T-Piece 04/16/16 06:00 102 04/16/16 04:00 88 04/16/16 04:00 98.5 87 16 111/65 95 04/16/16 02:00 86 04/16/16 00:00 99.2 87 27 115/61 100 04/16/16 00:00 87 04/15/16 23:20 99 T-piece 28 04/15/16 22:00 81 04/15/16 20:00 100.0 80 23 118/63 97 04/15/16 20:00 80 04/15/16 19:00 97 T-Piece 04/15/16 18:00 100 04/15/16 16:00 92 04/15/16 16:00 97.6 95 12 106/59 99 04/15/16 15:00 100 04/15/16 04/15/16 04/16/16 15:00 23:00 07:00 Intake Total 1338 ml 1590 ml 1785 ml Output Total 575 ml 350 ml 600 ml Balance 763 ml 1240 ml 1185 ml Intake Oral 0 ml 0 ml IV Total 884 ml 575 ml 725 ml Tube Feeding 24 ml 215 ml 260 ml Tube Irrigant 30 ml Other 400 ml 800 ml 800 ml Output Urine Total 575 ml 350 ml 600 ml Stool Total 0 ml # Bowel Movements 2 Laboratory Tests Test 04/15/16 04/16/16 04:12 04:21 White Blood Count 6.0 TH/MM3 5.2 TH/MM3 Red Blood Count 3.81 MIL/MM3 3.59 MIL/MM3 Hemoglobin 8.7 GM/DL 8.3 GM/DL Hematocrit 27.8 % 26.7 % Mean Corpuscular Volume 72.8 FL 74.4 FL Mean Corpuscular Hemoglobin 22.8 PG 23.2 PG Mean Corpuscular Hemoglobin 31.4 % 31.2 % Concent Red Cell Distribution Width 20.8 % 20.0 % Platelet Count 282 TH/MM3 338 TH/MM3 Mean Platelet Volume 7.7 FL 7.3 FL Neutrophils (%) (Auto) 66.9 % 73.3 % Lymphocytes (%) (Auto) 21.3 % 18.0 % Monocytes (%) (Auto) 9.3 % 5.5 % Eosinophils (%) (Auto) 1.5 % 1.7 % Basophils (%) (Auto) 1.0 % 1.5 % Neutrophils # (Auto) 4.0 TH/MM3 3.8 TH/MM3 Lymphocytes # (Auto) 1.3 TH/MM3 0.9 TH/MM3 Monocytes # (Auto) 0.6 TH/MM3 0.3 TH/MM3 Eosinophils # (Auto) 0.1 TH/MM3 0.1 TH/MM3 Basophils # (Auto) 0.1 TH/MM3 0.1 TH/MM3 CBC Comment AUTO DIFF AUTO DIFF Differential Comment AUTO DIFF AUTO DIFF CONFIRMED CONFIRMED Laboratory Tests Test 04/15/16 04/16/16 04:12 04:21 Sodium Level 131 MEQ/L 130 MEQ/L Potassium Level 4.1 MEQ/L 4.2 MEQ/L Chloride Level 95 MEQ/L 95 MEQ/L Carbon Dioxide Level 27.4 MEQ/L 26.2 MEQ/L Anion Gap 9 MEQ/L 9 MEQ/L Blood Urea Nitrogen 12 MG/DL 10 MG/DL Creatinine 0.64 MG/DL 0.65 MG/DL Estimat Glomerular Filtration 128 ML/MIN 125 ML/MIN Rate Random Glucose 130 MG/DL 176 MG/DL Calcium Level 8.9 MG/DL 8.5 MG/DL Magnesium Level 2.0 MG/DL 1.8 MG/DL Microbiology Date/Time Procedure Status Source Growth 04/14/16 09:20 Gram Stain - Final Complete Wound Buttock 04/14/16 09:20 Wound Culture - Final Complete Klebsiella Pneumoniae 04/14/16 09:20 Fungal Smear - Final Resulted Wound Buttock NO FUNGAL ELEMENTS SEEN. 04/14/16 09:20 Fungal Culture Resulted Wound Buttock Pending Microbiology Date/Time Procedure Status Source Growth 04/03/16 17:20 Gram Stain - Final Resulted Sputum Endotracheal 04/03/16 17:20 Sputum Culture - Preliminary Resulted S. Aureus Mrsa 04/03/16 21:30 Aerobic Blood Culture - Preliminary Resulted Blood Peripheral NO GROWTH IN 2 DAYS 04/03/16 21:30 Anaerobic Blood Culture - Preliminary Resulted Blood Peripheral NO GROWTH IN 2 DAYS 04/03/16 21:35 Aerobic Blood Culture - Preliminary Resulted Blood Peripheral NO GROWTH IN 2 DAYS 04/03/16 21:35 Anaerobic Blood Culture - Preliminary Resulted Blood Peripheral NO GROWTH IN 2 DAYS IMAGING: Chest X-Ray 04/14/16 0000 Signed Impressions: Service Date/Time: Thursday, April 14, 2016 17:24 - CONCLUSION: 1. Minimal basilar opacity most characteristic of atelectasis and scarring. No effusion or pneumothorax. Durga Dotson MD Chest X-Ray 03/13/16 0000 Signed Impressions: Service Date/Time: Sunday, March 13, 2016 06:21 - CONCLUSION: Stable chest Wellington West MD Head Magnetic Resonance Angiography 03/05/16 0000 Signed Impressions: Service Date/Time: Saturday, March 05, 2016 09:26 - CONCLUSION: Persistent high-grade subtotal occlusive stenotic lesions in the distal right vertebral artery and proximal basilar artery with significant improvement in flow and recanalization following initial presentation of thrombosis. Stable interstitial circulation without significant stenosis. 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 There is decreasing restricted diffusion and increasing loss of volume characteristic of a subacute to chronic infarct. No evidence of acute infarct, acute hemorrhage mass or edema. Ernesto Kulkarni MD Head CT 01/16/16 0000 Signed Impressions: Service Date/Time: Saturday, January 16, 2016 10:51 - CONCLUSION: No extensive low density in the brainstem colin more prominent in the right the left extending into the right middle cerebellar peduncle consistent with brainstem infarct nonhemorrhagic acute Wellington West MD Abdomen X-Ray 01/14/16 0000 Signed Impressions: Service Date/Time: Thursday, January 14, 2016 10:19 - CONCLUSION: Moderate stool; otherwise, negative. 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 No evidence of carotid stenosis. Glen Zamora MD Head/Brain Mag Res Venography 12/22/15 0000 Signed Impressions: Service Date/Time: Tuesday, December 22, 2015 09:22 - CONCLUSION: Normal MRV. Jonel Jones Jr., MD PHYSICAL EXAMINATION GENERAL: No acute distress. HEENT: The sclerae are nonicteric. No erythema. Oropharynx - moist mucosa visible. NECK: Supple without adenopathy. LUNGS: Decreased breath sounds. HEART: Regular rate and rhythm. No murmurs, rubs or gallops. ABDOMEN: Bowel sounds present, soft, no tenderness appreciated. BACK: Deep tunnelling sacrum ulcer. EXTREMITIES: No clubbing, cyanosis or edema. NEUROLOGIC: Unable to assess. SKIN: No rash. IMPRESSION 1. Fever. Low grade periodic fever. MRSA in sputum. ? PNA vs Tracheobronchitis. Stable. 2. CVA. 3. Post tracheostomy. 4. Sacral wound. Klebsiella. RECOMMENDATIONS 1. Stop Zyvox. 2. Add Ceftriaxone for Klebsiella. 3. Monitor the temp. Carlos Liu MD Apr 16, 2016 12:08
[2016-04-16] MEDS: cefTRIAXone INJ 2,000 MG in SODIUM CHLORIDE 0.9% INJ 100 ML IV SCH (12:38)
[2016-04-16] MEDS: SODIUM CHLORIDE 0.9% FLUSH 5 ML FLUSH IVF PRN (21:13)
[2016-04-16] MEDS: INSULIN DETEMIR 100 UNITS/ML VIAL SQ SCH (22:28)
[2016-04-17] VITALS (17 sets, daily range): BP systolic 108–125; BP diastolic 61–70; PULSE 89–118; RESP 22–29; TEMP 98.3–101.6; O2SAT 97–100
[2016-04-17] MEDS: FREE WATER TUBE SCH ×6 (04:00→20:00)
[2016-04-17 04:51] LABS: AUTOMATED NEUTROPHIL # 2.9 TH/MM3 (1.8-7.7); EOSINOPHIL # 0.1 TH/MM3 (0-0.4); EOSINOPHIL % 1.9 % (0.0-4.0); HEMATOCRIT 22.7 % (39.0-51.0); LYMPH % 24.3 % (9.0-44.0); LYMPHOCYTE # 1.1 TH/MM3 (1.0-4.8); MEAN CELL VOLUME 73.8 FL (80.0-100.0); MEAN CORPUSCULAR HEMOGLOBIN 23.4 PG (27.0-34.0); MEAN CORPUSCULAR HGB CONC 31.7 % (32.0-36.0); MONO % 9.3 % (0.0-8.0); NEUT % 63.5 % (16.0-70.0); PLATELET COUNT 285 TH/MM3 (150-450); RED BLOOD COUNT 3.08 MIL/MM3 (4.50-5.90); RED CELL DISTRIBUTION WIDTH 20.4 % (11.6-17.2); WHITE BLOOD COUNT 4.5 TH/MM3 (4.0-11.0)
[2016-04-17 04:57] LABS: HEMO FLAGS AUTO DIFF
[2016-04-17 05:14] LABS: BICARBONATE 26.5 MEQ/L (21.0-32.0); POTASSIUM 3.6 MEQ/L (3.5-5.1)
[2016-04-17] MEDS: ACETIC ACID 0.25% SOLN 1000 ML IRR BTL IRRIGATION SCH ×3 (06:00→22:00)
[2016-04-17] MEDS: INSULIN ASPART SUPPLEMENTAL SCALE SQ SCH ×4 (07:00→21:00)
[2016-04-17 07:16] LABS: SCAN/DIFF AUTO DIFF CONFIRMED
[2016-04-17] MEDS: NYSTATIN 100,000 U/GM PWD 15 GM BTL TOPICAL SCH ×2 (08:44→21:00)
[2016-04-17] MEDS: ARTIFICIAL TEARS OPTH OINT 3.5 APPLIC/3.5 GM TUBO EACH EYE SCH ×2 (08:44→20:51)
[2016-04-17] MEDS: SODIUM CHLORIDE 0.9% FLUSH 5 ML FLUSH IVF PRN (08:46)
[2016-04-17] MEDS: SODIUM CHLOR 0.9% 1000 ML INJ 1,000 ML IV SCH ×2 (08:46→21:45)
[2016-04-17] MEDS: SENNOSIDES SYRUP 8.8 MG/5 ML CUP TUBE SCH (08:49)
[2016-04-17] MEDS: RANITIDINE HCL SYRUP 150 MG/10 ML UDC PO SCH (08:49)
[2016-04-17] MEDS: METOPROLOL TARTRATE 50 MG TAB PO SCH ×2 (08:49→20:51)
[2016-04-17] MEDS: DILTIAZEM HCL 60 MG TAB PO SCH ×4 (08:49→20:51)
[2016-04-17] MEDS: levETIRAcetam 500 MG/5 ML UDC TUBE SCH ×2 (08:49→20:50)
[2016-04-17] MEDS: ENOXAPARIN SODIUM 100 MG/ML SYRINGE SQ SCH (09:55)
--- NOTE | 2016-04-17 10:41 | HHI.PR ---
Subjective Remarks F/U tachycardia, anemia, sacral wound Heart rate better today, still with a lot of bleeding from the sacral area, hemoglobin dropped. Patient is a bit more sleepy but arousable. Follows some commands. Afebrile overnight. Objective Vitals Vital Signs Date Time Temp Pulse Resp B/P Pulse Ox O2 Delivery O2 Flow Rate FiO2 04/17/16 09:26 100 T-piece 5.00 28 04/17/16 07:15 92 T-Piece 04/17/16 06:00 89 04/17/16 04:00 98.8 102 24 118/70 99 04/17/16 04:00 102 04/17/16 02:00 92 04/17/16 00:00 98.7 90 24 108/62 98 04/17/16 00:00 93 04/16/16 22:00 92 04/16/16 21:57 100 T-piece 04/16/16 20:00 98.4 98 24 113/61 100 04/16/16 20:00 104 04/16/16 19:00 98 T-Piece 04/16/16 17:45 96 04/16/16 16:00 99.4 88 26 109/62 100 04/16/16 16:00 88 04/16/16 14:00 84 04/16/16 12:00 82 04/16/16 12:00 98.7 82 27 104/61 98 I/O 04/16/16 04/16/16 04/16/16 04/17/16 04/17/16 04/17/16 07:00 15:00 23:00 07:00 15:00 23:00 Intake Total 1785 ml 1632 ml 1304 ml 810 ml Output Total 600 ml 825 ml 450 ml 1200 ml 0 ml Balance 1185 ml 807 ml 854 ml -390 ml 0 ml Intake Oral 0 ml IV Total 725 ml 885 ml 622 ml 341 ml Tube Feeding 260 ml 317 ml 352 ml 219 ml Other 800 ml 430 ml 330 ml 250 ml Output Urine Total 600 ml 825 ml 450 ml 1200 ml Tube Feeding Residual Discard 0 ml 0 ml 0 ml # Bowel Movements 2 1 0 0 Result Diagram: 04/17/1643104/17/16431 Objective Remarks GENERAL: Elderly patient, positive tracheostomy. SKIN: Warm and dry. Sacral wound, approximately 1.5" x 0.5", dressings in place. HEAD: Normocephalic. Atraumatic. EYES: No scleral icterus. No injection or drainage. NECK: Supple. Tracheostomy in place CARDIOVASCULAR: Regular rate and rhythm, no murmurs. RESPIRATORY: Breath sounds equal bilaterally, poor effort. No accessory muscle use. GASTROINTESTINAL: Abdomen soft, non-tender, nondistended. Normoactive bowel sounds 4. PEG in place. MUSCULOSKELETAL: Extremities without clubbing, cyanosis, or edema. NEUROLOGICAL: Does not spontaneously move extremities, Nonverbal. 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 Significant residual cognitive deficit. Nonverbal at this time. Continue Keppra, palliative care following. Coumadin on hold because of significant bleeding in his sacral wound. Nausea and vomiting-doubt ileus, good bowel sounds. Tube feeds restarted, tolerating them now. Discussed with RN. Chest x-ray only showed atelectasis. GI/Nutrition: Previous PEG tube exchanged by GI at bedside 03/30/2016. Appreciate dietary recommendations; Nepro tube feedings for sodium content to continue at 55 mL, hour. Respiratory failure: Secondary to CVA. Patient is status post tracheostomy. Continue pulmonary toilet and neb treatments as needed. Pulmonary following. Levsin for secretions Depression: Continue Paxil. A-fib: continue Lopressor, continue Cardizem to 240 mg daily, now more controlled, Coumadin on hold, echocardiogram completed in November shows preserved EF. UTI: Resolved. Urine culture with Klebsiella on 01/31 and repeat on 03/06, 04/03 negative. Arevalo replaced on 03/07. Sacral pressure ulcer with cavity:Wound care nurse input appreciated and recommended continue current treatment per protocol; repositioning Q2-3H; Concern over increased amount of codi red blood on dressing; Coumadin on hold. Hemoglobin stable, will start Lovenox for now. Dr. Yoder ordered CT abdomen and pelvisshowed 6.4 cm necrotic mass or abscess in the soft tissues posteriorly just below the sacrum associated with some bony destructive change of the lower most sacrum and coccyx with inflammatory changes extending into the ischiorectal fossa and into the presacral retroperitoneum predominantly on the left side. There is associated fairly marked mural thickening of the anal verge and rectum. The colorectal surgery consulted, awaiting input. Dr. Yoder from plastic surgery has signed off and continue wound care per wound care nurse. Continue Zyvox for now. There is a suspicion for malignancy versus osteomyelitis. Infectious disease following. Discussed with Dr. Smith yesterday, apparently, they were not oncology rn over the weekend and based oncology rn schedule, they would not be seeing the patient. Consult Dr. Blevins, discussed with him, he will see the patient today. Infectious disease following , Zyvox stopped, ceftriaxone started for Klebsiella. History of Non-Hodgkin lymphoma: s/p brain biopsy on December 13, by Neurosurgery, Dr. Marin, Pathology consistent with acute infarct without evidence of lymphoma. Seen by Oncology, Dr. Whyte, who has signed off for current admission. DM: Hemoglobin A1c is 7.0. Continue Levemir with sliding scale insulin- monitor and adjust the regimen as needed. Pneumonia with MRSA: patient having fevers 02/27-03/08, Blood cultures on 03/03 grew gram-negative rods in 1 out of 4 bottles, repeat blood cultures 03/06 negative. Sputum culture 03/08 with MRSA. Infectious disease consulted, Bactrim and Flagyl completed 03/14, Vanco completed 03/17. Do not repeat culture unless fevers return, per ID. Fever with MRSA in the sputum, tracheobronchitis- recultured 04/03/16. Chest x-ray 04/05 was clear. Blood cultures negative. Started on zyvox, switched to ceftriaxone today. Speech therapy consulted to evaluate,passy-mikey valve trial- recommended the patient is not a candidate for ST at this time. Hyponatremia-Continue normal saline. Acute blood loss anemia-stop anticoagulation, will check hemoglobin this afternoon, will transfuse as needed. DVT prophylaxis: Anticoagulation on hold Discussed with family and nurse. . Transfer to [facility] Problem Qualifiers (1) DM (diabetes mellitus): Qualified Code: E11.9 - Type 2 diabetes mellitus without complications Radha Espino MD Apr 17, 2016 10:41
[2016-04-17] MEDS: ACETAMINOPHEN 650 MG/20.3 ML UDC TUBE PRN (11:52)
[2016-04-17] MEDS: cefTRIAXone INJ 2,000 MG in SODIUM CHLORIDE 0.9% INJ 100 ML IV SCH (11:53)
--- NOTE | 2016-04-17 15:42 | HHI.HCPN ---
Reason for visit a. To assist with evaluation and management of symptoms including: dyspnea, encephalopathy, depression b. To assist medical decision maker(s) with: better understanding of current medical conditions; weighing benefits/burdens of medical treatment options; making medical treatment decisions. (Tiara Colin) Subjective/Interval History Pt seen today to follow up with family for requested periodic updates Patient remains in ICU, awaiting transfer to medical floor. VS stable, intermittent fever. ID following. Tmax 101.6. Sacral wound +Klebsiella Pneumoniae. On ceftriaxone. Med attending ordered gen surgery eval again for wound. d/w Dr Payne, he informs he spoke w family that surgery was not a reasonable option for pt as it would not offer improvement to ongoing underlying conditions. He recommended comfort focused treatment/palliative. To my exam his eyes are open, when I ask him yes/no questions he does not blink consistently family also requests in their language. No visible movement to commands (family informs some movement LUE seen). Trace edema upper extremities. Sister at bedside requesting update, gave her general overview and advised per family request detailed updates to be given to dtr Leanne or sig other Leanne only. Family asks why he cont to be ill and have ongoing lung issues and the wound issue. Explain that he will continue to experience complications/setbacks ongoing due to persistent vegetative state. following exam call to dtr Leanne to provide update, voicemail left. History brought forward from initial consult by Rita MOCTEZUMA on 01/10/16: This 59-year-old patient was admitted on 12/21/15 via the ED for facial drooping. ED physician notes that patient and patients are poor historians, EMS reported the could not provide good timelines to them. Patient also reported headache, difficulty ambulating. He had known history of recent findings of mass in the brain. During ED course had deterioration of clinical condition and able to protect his airway, unable to follow commands patient was intubated and CT brain obtained. He was admitted for further evaluation and management to the ICU. Animal Technician was consulted and following patient. Pathology on recent brain biopsy (12/13) still pending. CLINICAL/HOSPITAL COURSE: * CT brain= no focal or acute intracranial hemorrhage. New area decreased density in left occipital lobe suggestive of recent nonhemorrhagic infarct, decreased density in previously noted right occipital lobe has increased in size * Brain MRI = new area of restricted diffusion within left occipital lobe suggesting acute infarct. Interval enlargement of the area of restricted diffusion within right occipital lobe suggesting probable extension of right occipital and started on. Underlying enhancement of right occipital lobe is slightly worse than the previous exam and nonspecific. Biopsy has been performed and results are pending. Tiny focal area of restricted diffusion within right cerebellar hemisphere consistent with probable acute/subacute lacunar infarct. Signal abnormality in the SWI sequence within the right occipital lobe suggesting some hemorrhage in biopsy bed. No midline shift or extra-axial fluid collections. * CXR= no acute cardiopulmonary disease * -Neurology consulted, ordered MRA to look for vertebrobasilar stenosis, echo done last admission notes normal EF with normal valves and normal left atrial size. EEG also ordered. MR venogram ordered. EEG= abnormal study consistent with her encephalopathy. MRV indicated basilar occlusion; neurology notes discussion with family regarding chemical code only, also notes discussion regarding risks associated with the anticoagulates, was discussed with radiologist/INR recommended not helpful to extract basilar clot as this could result in patient's . It was felt the colin was infarcted. Further neurology notes "he could be locked in", is acting as if colin is infarcted. * Oncology known to patient also consulted for non-Hodgkin's lymphoma: Dr Whyte documents that there was no evidence of residual or recurrent disease on CT scans of chest, abdomen, pelvis done in October and November of this year. Pathology was still pending, had been sent to [facility] for second opinion. No acute oncology interventions recommended at that time, will follow. * 6 - 12/25 febrile. CPAP trials. Remains on vent off of sedation. Withdrawing to pain. Repeat brain MRI= evolving brainstem stroke. Neurology notes extensive discussion with family, notes discussion the patient is locked in but fully aware, family would like to see help patient does over the next 3 months. 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 Biopsy brain lesion appears consistent with acute infarct no lymphoma. Family desires ongoing aggressive measures, will proceed with tracheostomy. Sputum culture positive sensitive Klebsiella. * 01/01 tracheostomy, PEG tube placement * 01/04 trach collar trials, alternating with T piece. Low-grade fever 100.5. CXR = mild bibasilar atelectasis. Neuro: Spontaneously opening eyes, looking up / down, directionally to commands. * 01/07 still "locked in " , transferred off ICU to regular floor. * 01/08 pulmonology consulted-not CXR clear no evidence of pulmonary infection. He may have some underlying COPD recommends continued aerosol treatments. Further notes long discussion with family at bedside regarding tracheostomy, long-term use of trach until patient able to protect his airway, no further recommendations. Palliative care consulted to assist with clarification of goals of treatment. * (Tiara Colin) Advance Directives Living Will: Never completed Health Care Surrogate: Never completed (Tiara Colin) Objective Vital Signs Date Time Temp Pulse Resp B/P Pulse Ox O2 Delivery O2 Flow Rate FiO2 04/17/16 14:00 98 04/17/16 12:00 106 04/17/16 12:00 101.6 106 22 122/66 99 04/17/16 10:00 94 04/17/16 09:26 100 T-piece 5.00 28 04/17/16 08:00 99.6 118 29 125/68 97 04/17/16 08:00 118 04/17/16 07:15 92 T-Piece 04/17/16 06:00 89 04/17/16 04:00 98.8 102 24 118/70 99 04/17/16 04:00 102 04/17/16 02:00 92 04/17/16 00:00 98.7 90 24 108/62 98 04/17/16 00:00 93 04/16/16 22:00 92 04/16/16 21:57 100 T-piece 28 04/16/16 20:00 98.4 98 24 113/61 100 04/16/16 20:00 104 04/16/16 19:00 98 T-Piece 28 04/16/16 17:45 96 04/16/16 16:00 99.4 88 26 109/62 100 04/16/16 16:00 88 Intake & Output 04/17/16 04/17/16 07:00 19:00 Intake Total 1884 ml 1487 ml Output Total 1650 ml 600 ml Balance 234 ml 887 ml IV Total 963 ml 681 ml Tube Feeding 571 ml 376 ml Other 350 ml 430 ml Output Urine Total 1650 ml 600 ml Tube Feeding Residual Discard 0 ml 0 ml # Bowel Movements 0 0 Physical Exam CONSTITUTIONAL/GENERAL: This is an adequately nourished patient, minimally interactive-eyes open does not track TUBES/LINES/DRAINS: Arevalo catheter, PEG tube, tracheostomy, SCDs, heel protection boots, on specialty air bed SKIN: No jaundice, rashes, or lesions.No wounds seen anteriorly--large wound reported to coccyx with significant ongoing oozing though I did not visualize. Skin temperature appropriate. Not diaphoretic. CARDIOVASCULAR: Regular rate and rhythm without murmurs. mildly tachycardic. Peripheral pulses symmetric. Trace peripheral edema upper extremities. RESPIRATORY/CHEST: Tracheostomy midline, no symptoms of problems around site. Symmetric, unlabored respirations. + moist cough. T piece, 28% FiO2. +course scattered rhonchi. Breath sounds equal bilaterally. GASTROINTESTINAL: Abdomen soft, no apparent tenderness, nondistended. No palpable masses. Bowel sounds normoactive. tube feed infusing via PEG. MUSCULOSKELETAL: Extremities without clubbing, cyanosis,. Trace edema upper extremities No joint effusion noted. No mottling or clubbing.+ Muscle atrophy to all 4 extremities. NEUROLOGICAL: Eyes open. Does not track examiner. does blink though not clear is to commands. No response to stimuli. No movement of extremities, no following of commands. PSYCHIATRIC: Difficult to fully assess due to clinical condition. no evident anxiety . (Tiara Colin) Diagnostic Tests Laboratory Laboratory Tests Test 04/14/16 04/15/16 04/16/16 04/17/16 17:00 04:12 04:21 04:32 Blood Gas Puncture Site RT RADIAL Blood Gas Patient Temperature 98.6 Blood Gas HCO3 26 mmol/L (22-26) Blood Gas Base Excess 2.1 mmol/L (-2-2) Blood Gas Oxygen Saturation 93 % (90-100) Arterial Blood pH 7.46 (7.380-7.420) Arterial Blood Partial 36 mmHg (38-42) Pressure CO2 Arterial Blood Partial 76 mmHg Pressure O2 (61-120) Arterial Blood Oxygen Content 14.3 Vol % (12.0-20.0) Arterial Blood 1.8 % (0-4) Carboxyhemoglobin Arterial Blood Methemoglobin 0.3 % (0-2) Blood Gas Hemoglobin 10.9 G/DL (12.0-16.0) Oxygen Delivery Device T-PIECE Blood Gas Inspired Oxygen 28 % White Blood Count 6.0 TH/MM3 5.2 TH/MM3 4.5 TH/MM3 (4.0-11.0) (4.0-11.0) (4.0-11.0) Red Blood Count 3.81 MIL/MM3 3.59 MIL/MM3 3.08 MIL/MM3 (4.50-5.90) (4.50-5.90) (4.50-5.90) Hemoglobin 8.7 GM/DL 8.3 GM/DL 7.2 GM/DL (13.0-17.0) (13.0-17.0) (13.0-17.0) Hematocrit 27.8 % 26.7 % 22.7 % (39.0-51.0) (39.0-51.0) (39.0-51.0) Mean Corpuscular Volume 72.8 FL 74.4 FL 73.8 FL (80.0-100.0) (80.0-100.0) (80.0-100.0) Mean Corpuscular Hemoglobin 22.8 PG 23.2 PG 23.4 PG (27.0-34.0) (27.0-34.0) (27.0-34.0) Mean Corpuscular Hemoglobin 31.4 % 31.2 % 31.7 % Concent (32.0-36.0) (32.0-36.0) (32.0-36.0) Red Cell Distribution Width 20.8 % 20.0 % 20.4 % (11.6-17.2) (11.6-17.2) (11.6-17.2) Platelet Count 282 TH/MM3 338 TH/MM3 285 TH/MM3 (150-450) (150-450) (150-450) Mean Platelet Volume 7.7 FL 7.3 FL 7.1 FL (7.0-11.0) (7.0-11.0) (7.0-11.0) Neutrophils (%) (Auto) 66.9 % 73.3 % 63.5 % (16.0-70.0) (16.0-70.0) (16.0-70.0) Lymphocytes (%) (Auto) 21.3 % 18.0 % 24.3 % (9.0-44.0) (9.0-44.0) (9.0-44.0) Monocytes (%) (Auto) 9.3 % (0.0-8.0) 5.5 % (0.0-8.0) 9.3 % (0.0-8.0) Eosinophils (%) (Auto) 1.5 % (0.0-4.0) 1.7 % (0.0-4.0) 1.9 % (0.0-4.0) Basophils (%) (Auto) 1.0 % (0.0-2.0) 1.5 % (0.0-2.0) 1.0 % (0.0-2.0) Neutrophils # (Auto) 4.0 TH/MM3 3.8 TH/MM3 2.9 TH/MM3 (1.8-7.7) (1.8-7.7) (1.8-7.7) Lymphocytes # (Auto) 1.3 TH/MM3 0.9 TH/MM3 1.1 TH/MM3 (1.0-4.8) (1.0-4.8) (1.0-4.8) Monocytes # (Auto) 0.6 TH/MM3 0.3 TH/MM3 0.4 TH/MM3 (0-0.9) (0-0.9) (0-0.9) Eosinophils # (Auto) 0.1 TH/MM3 0.1 TH/MM3 0.1 TH/MM3 (0-0.4) (0-0.4) (0-0.4) Basophils # (Auto) 0.1 TH/MM3 0.1 TH/MM3 0.0 TH/MM3 (0-0.2) (0-0.2) (0-0.2) CBC Comment AUTO DIFF AUTO DIFF AUTO DIFF Differential Comment AUTO DIFF AUTO DIFF AUTO DIFF CONFIRMED CONFIRMED CONFIRMED Prothrombin Time 16.0 SEC 16.2 SEC (9.8-11.4) (9.8-11.4) Prothromb Time International 1.5 RATIO 1.5 RATIO Ratio Sodium Level 131 MEQ/L 130 MEQ/L 137 MEQ/L (136-145) (136-145) (136-145) Potassium Level 4.1 MEQ/L 4.2 MEQ/L 3.6 MEQ/L (3.5-5.1) (3.5-5.1) (3.5-5.1) Chloride Level 95 MEQ/L 95 MEQ/L 103 MEQ/L (98-107) (98-107) (98-107) Carbon Dioxide Level 27.4 MEQ/L 26.2 MEQ/L 26.5 MEQ/L (21.0-32.0) (21.0-32.0) (21.0-32.0) Anion Gap 9 MEQ/L (5-15) 9 MEQ/L (5-15) 8 MEQ/L (5-15) Blood Urea Nitrogen 12 MG/DL (7-18) 10 MG/DL (7-18) 6 MG/DL (7-18) Creatinine 0.64 MG/DL 0.65 MG/DL 0.50 MG/DL (0.60-1.30) (0.60-1.30) (0.60-1.30) Estimat Glomerular Filtration 128 ML/MIN 125 ML/MIN 170 ML/MIN Rate (>89) (>89) (>89) Random Glucose 130 MG/DL 176 MG/DL 131 MG/DL (74-106) (74-106) (74-106) Calcium Level 8.9 MG/DL 8.5 MG/DL 8.0 MG/DL (8.5-10.1) (8.5-10.1) (8.5-10.1) Magnesium Level 2.0 MG/DL 1.8 MG/DL (1.5-2.5) (1.5-2.5) (Tiara Colin) Result Diagram: 04/17/1643104/17/16431 Microbiology Microbiology Date/Time Procedure Status Source Growth 04/14/16 09:20 Gram Stain - Final Complete Wound Buttock 04/14/16 09:20 Wound Culture - Final Complete Klebsiella Pneumoniae 04/14/16 09:20 Fungal Smear - Final Resulted Wound Buttock NO FUNGAL ELEMENTS SEEN. 04/14/16 09:20 Fungal Culture Resulted Wound Buttock Pending Imaging Last Impressions Chest X-Ray 04/14/16 0000 Signed Impressions: Service Date/Time: Thursday, April 14, 2016 17:24 - CONCLUSION: 1. Minimal basilar opacity most characteristic of atelectasis and scarring. No effusion or pneumothorax. Durga Dotson MD Abdomen/Pelvis CT 04/12/16 0000 Signed Impressions: Service Date/Time: Tuesday, April 12, 2016 20:52 - CONCLUSION: 1. 6.4 cm necrotic mass or abscess in the soft tissues posteriorly just below the sacrum associated with some bony destructive change of the lower most sacrum and coccyx with inflammatory changes extending into the ischiorectal fossa and into the presacral retroperitoneum predominantly on the left side. There is associated fairly marked mural thickening of the anal verge and rectum. 2. There is gastrostomy and Arevalo catheter present. Stable abdominal aortic aneurysm. Durga Dotson MD Head Magnetic Resonance Angiography 03/05/16 0000 Signed Impressions: Service Date/Time: Saturday, March 05, 2016 09:26 - CONCLUSION: Persistent high-grade subtotal occlusive stenotic lesions in the distal right vertebral artery and proximal basilar artery with significant improvement in flow and recanalization following initial presentation of thrombosis. Stable interstitial circulation without significant stenosis. 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 There is decreasing restricted diffusion and increasing loss of volume characteristic of a subacute to chronic infarct. No evidence of acute infarct, acute hemorrhage mass or edema. Ernesto Kulkarni MD Head CT 01/16/16 0000 Signed Impressions: Service Date/Time: Saturday, January 16, 2016 10:51 - CONCLUSION: No extensive low density in the brainstem colin more prominent in the right the left extending into the right middle cerebellar peduncle consistent with brainstem infarct nonhemorrhagic acute Wellington West MD Abdomen X-Ray 01/14/16 0000 Signed Impressions: Service Date/Time: Thursday, January 14, 2016 10:19 - CONCLUSION: Moderate stool; otherwise, negative. 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 No evidence of carotid stenosis. Glen Zamora MD Head/Brain Mag Res Venography 12/22/15 0000 Signed Impressions: Service Date/Time: Tuesday, December 22, 2015 09:22 - CONCLUSION: Normal MRV. Jonel Jones Jr., MD Procedures * 01/01 tracheostomy, PEG tube placement . 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; EEG indicates encephalopathy, neuro following patient felt to be in a "locked-in "state (2) Non-Hodgkin lymphoma Comment: -In remission status post chemotherapy completed May 2015 (3) Acute respiratory failure Comment: Pulmonology following, medical management (4) A-fib (5) Status post stereotactic brain biopsy (6) Brain lesion Comment: Status post biopsy November 2015; pathology consistent with acute infarct without evidence of lymphoma (7) DM (diabetes mellitus) Symptom Scale: (1) Dysphagia Comment: Status post significant CVA, has had PEG tube placed- no improvement per ongoing ST eval (2) Dyspnea Comment: Respiratory failure secondary to CVA, status post tracheostomy, pulmonary following (3) Encephalopathy Comment: Significant CVA, "locked-in" state -- though pt not noted with consistent attempts to communicate. ? vegetative (4) Malnutrition Comment: Status post PEG tube placement. Episode of emesis yesterday, currently tolerating tube feeding without issue (5) Depression Comment: At risk for related to "locked in status", communication difficulties , situational, but would likely benefit from anti-depressant Pertinent Non-Medical Issues * Psychosocial:Mr. Flores is originally from [place]. He moved to the [place] around 35 years ago, first to [place] and later to [place]. He is not legally but remains with his ex-, Leanne. They have been together for 31+ years and have three children together: Leanne, Gerald, and Ginny. Gerald is currently in [place] for work. Mr. Flores has 2 brothers and 7 sisters. His father is of old age. His mother is alive and was living with the patient. Greatly enjoys his family. Retired. 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 * Spiritual: * Legal:Patient due to clinical condition is currently unable to participate in medical decision making. Not clear if or when he will regain this ability. Family does not believe he has completed advance directives. per [place] Statutes, medical proxy decision making would fall to the majority of adult children, as Mr. Flores is not legally . * Ethical issues impacting care: Important Contacts Leanne, daughter: [phone] Ginny, daughter: [phone] Gerald, son: currently in [facility] for work but has communication with his siblings. Leanne, ex-: [phone] Prognosis This patient has had 20 day hospital course thus far, admitted on 62 for a large brainstem infarct, bilateral occipital infarcts. He has subsequently had ongoing encephalopathy and severe communication limitations, neurology feels he is in a "locked-in "state. He has suffered from respiratory failure likely secondary to significant CVA. Appears he should be able to survive this acute hospitalization, however not clear when or if he will regain ability to communicate, based on current assessments patient will require long-term care placement. He will remain high risk for potential competition/setbacks due to immobile status including infections, DVT etc. . Code Status: Full Code Plan * GOALS: Very aggressive. See family conference component on initial consult for additional detail. Meeting In summary: Initially they had many questions regarding admission and biopsy which occurred in November, they ask about differentials and decision making leading to the biopsy, and have many concerns regarding that clinical course--advised that I could not speak to any of those questions or processes as I was not involved in his care and decision making at that time, recommend them to direct those specific questions to those initial providers which provided those services. Otherwise review of conditions, goals as detailed in "issues discussed". Family expresses that Mr. Flores did remarkably well following his chemotherapy for lymphoma just last year, and that he had been doing fine until recent issue in November. They endorsed that he is a fighter, that he is a very optimistic person, and that they are certain he is "in there "and would want to continue fighting for whatever recovery he might have." They have many questions regarding rehabilitation services and placement as well as financial coverage for these services, advised that case management could assist them with the various applications which already in process, but that any placement would depend on funding, or alternatively coleman placement which is up to any individual institution. They would like to maximize PT/OT/ST ongoing while here in the hospital. They also request courtesy consult of to follow him for pulmonary as he is known to the family through their anabaptism. * 04/17/16-call to liane Perdomo to provide medical update, VM left. * CODE STATUSfull code * Symptoms: == Dysphagia--Status post significant CVA, has had PEG tube placed; no improvement per ST following --trial with a passy mikey valve, patient with no response or attempt to verbalize == Dyspnea --Respiratory failure secondary to CVA, status post tracheostomy, pulmonary following; currently no apparent distress/ O2 sats / O2 requirements stable == Encephalopathy--Significant CVA, "locked-in" state; follow-up MRI with no significant changes; family endorses patient continues to have limited communication via blinks and eye motion-- does not consistently attempt to communicate w therapies, appears vegetative == Malnutrition--Status post PEG tube placement. Episode of emesis yesterday , currently tolerating TF; having bowel movements == depression/anxiety -- At risk for related to "locked in status", communication difficulties, situational, but would likely benefit from anti- depressant. Family reports tearful at times when they talk to him. prev. started on celexa, then d/c per family request. On Paxil per family request. previously tearful at times during exam. No distress observed or reported today , ? Pain versus emotional distress. Will cont to evaluate. == Pain: Tearful,? At times blinks/looks up for yes to pain per family, nursing // nursing to administer PRN [place]. Potential sources would include large sacral wound, bedbound status. Nursing has expressed that they use PRN sparingly as family has concerns that too much will contribute to his lethargy/ decreased alertness. We'll continue to evaluate. * Palliative care will continue to follow during hospital course as condition evolves, to assist patient/decision-maker with understanding of medical conditions, weighing benefits/burdens of treatment options, for clarification of goals of treatment. Additionally will assist with any symptoms of palliative concern (Tiara Colin) Time Spent Total Floor Time (mins): 30 >50% Counseling/Coord of Care: Yes (d/w primary RN, Dr Blevins) (Tiara Colin) Attestation To help prompt me to consider important information that might be impacting today's encounter and assessment, information from prior notes written by myself or my colleagues may have been "brought forward" into today's note. My signature on this note, however, is an attestation that I personally performed the exam, history, and/or decision-making noted today, and, unless otherwise indicated, the interactions with patient, family, and staff as well as the review of records all occurred today. I also attest that the listed assessment and stated plan reflect my best clinical judgment today based on the combination of historical information, prior notes, and today's exam/ interactions. When time spent is documented, it refers only to time spent today by the signer, or if indicated, combined time spent today by collaborating physician/nurse practitioner. (Tiara Colin) Collaborating MD Comments Chart reviewed. Patient discussed with palliative care FIELD AIDE. Above note reviewed and I concur. . (Cal Michelle MD) Tiara Colin Apr 17, 2016 15:42 Cal Michelle MD Jun 12, 2016 14:17
[2016-04-17 16:08] LABS: HEMATOCRIT 22.8 % (39.0-51.0)
[2016-04-17 16:14] LABS: REVIEW FLAG FINAL
[2016-04-17] MEDS: PARoxetine HCL SUSP 20 MG/10 ML UDC PEG SCH (20:50)
[2016-04-17] MEDS: INSULIN DETEMIR 100 UNITS/ML VIAL SQ SCH (20:51)
[2016-04-18] VITALS (14 sets, daily range): BP systolic 104–132; BP diastolic 58–79; PULSE 84–106; RESP 23–34; TEMP 97.1–99.5; O2SAT 94–99
[2016-04-18] MEDS: DILTIAZEM HCL 60 MG TAB PO SCH ×4 (01:02→17:48)
[2016-04-18] MEDS: FREE WATER TUBE SCH ×6 (04:00→20:00)
[2016-04-18 04:13] LABS: AUTOMATED NEUTROPHIL # 5.6 TH/MM3 (1.8-7.7); BASOPHIL % 0.7 % (0.0-2.0); EOSINOPHIL # 0.1 TH/MM3 (0-0.4); EOSINOPHIL % 1.2 % (0.0-4.0); HEMATOCRIT 27.1 % (39.0-51.0); LYMPH % 13.5 % (9.0-44.0); MEAN CELL VOLUME 76.3 FL (80.0-100.0); MEAN CORPUSCULAR HEMOGLOBIN 24.1 PG (27.0-34.0); MEAN CORPUSCULAR HGB CONC 31.6 % (32.0-36.0); MONO % 6.9 % (0.0-8.0); NEUT % 77.7 % (16.0-70.0); PLATELET COUNT 269 TH/MM3 (150-450); RED BLOOD COUNT 3.56 MIL/MM3 (4.50-5.90); RED CELL DISTRIBUTION WIDTH 20.5 % (11.6-17.2); WHITE BLOOD COUNT 7.2 TH/MM3 (4.0-11.0)
[2016-04-18 04:16] LABS: HEMO FLAGS AUTO DIFF
[2016-04-18 04:34] LABS: BICARBONATE 23.4 MEQ/L (21.0-32.0); MAGNESIUM 1.8 MG/DL (1.5-2.5); POTASSIUM 3.5 MEQ/L (3.5-5.1)
[2016-04-18 04:53] LABS: SCAN/DIFF AUTO DIFF CONFIRMED
[2016-04-18] MEDS: ACETIC ACID 0.25% SOLN 1000 ML IRR BTL IRRIGATION SCH ×3 (05:40→23:19)
[2016-04-18] MEDS: INSULIN ASPART SUPPLEMENTAL SCALE SQ SCH ×4 (05:40→21:00)
[2016-04-18] MEDS: METOPROLOL TARTRATE 50 MG TAB PO SCH ×2 (07:57→21:00)
[2016-04-18] MEDS: RANITIDINE HCL SYRUP 150 MG/10 ML UDC PO SCH (07:58)
[2016-04-18] MEDS: SENNOSIDES SYRUP 8.8 MG/5 ML CUP TUBE SCH (07:58)
[2016-04-18] MEDS: levETIRAcetam 500 MG/5 ML UDC TUBE SCH ×2 (07:58→21:27)
[2016-04-18] MEDS: RESP: ALBUTEROL 2.5 MG/IPRATROPIUM 0.5 MG NEB (PRN) NEB (08:35)
[2016-04-18] MEDS: ARTIFICIAL TEARS OPTH OINT 3.5 APPLIC/3.5 GM TUBO EACH EYE SCH ×2 (09:31→23:16)
[2016-04-18] MEDS: NYSTATIN 100,000 U/GM PWD 15 GM BTL TOPICAL SCH ×2 (09:32→23:17)
[2016-04-18] MEDS: SODIUM CHLOR 0.9% 1000 ML INJ 1,000 ML IV SCH ×2 (09:32→23:18)
[2016-04-18] MEDS: cefTRIAXone INJ 2,000 MG in SODIUM CHLORIDE 0.9% INJ 100 ML IV SCH (11:44)
[2016-04-18] MEDS: ACETAMINOPHEN/HYDROcodone 325 MG/5 MG TAB PO PRN (12:42)
--- NOTE | 2016-04-18 15:28 | HHI.PR ---
Subjective Remarks D/w RN - dressing was just changed. D/w [facility] Colin palliative care. DIscussed with pt's /former at bedside as well as pt's daughter. VSS. Objective Vitals Vital Signs Date Time Temp Pulse Resp B/P Pulse Ox O2 Delivery O2 Flow Rate FiO2 04/18/16 14:00 84 04/18/16 12:00 99.5 94 31 126/65 97 04/18/16 12:00 94 04/18/16 10:00 90 04/18/16 08:37 96 T-piece 5.00 28 04/18/16 08:00 87 04/18/16 08:00 98.9 106 34 130/79 96 04/18/16 07:00 96 T-Piece 04/18/16 06:00 101 04/18/16 04:00 100 04/18/16 04:00 97.1 100 25 132/70 99 04/18/16 02:00 96 04/18/16 00:00 98.5 91 25 128/69 99 04/18/16 00:00 91 04/17/16 22:31 98 T-piece 6.00 28 04/17/16 22:00 92 04/17/16 20:00 98.4 96 26 120/70 100 04/17/16 20:00 100 T-Piece 28 04/17/16 20:00 93 04/17/16 19:35 98.4 96 26 120/70 100 04/17/16 19:20 99.2 95 25 110/61 100 04/17/16 18:00 90 04/17/16 17:30 94 04/17/16 16:00 96 04/17/16 16:00 98.3 96 24 111/61 98 I/O 04/17/16 04/17/16 04/17/16 04/18/16 04/18/16 04/18/16 07:00 15:00 23:00 07:00 15:00 23:00 Intake Total 810 ml 1487 ml 1827 ml 1231 ml 1802 ml Output Total 1200 ml 600 ml 1200 ml 500 ml 1225 ml Balance -390 ml 887 ml 627 ml 731 ml 577 ml IV Total 341 ml 681 ml 734 ml 525 ml 896 ml Tube Feeding 219 ml 376 ml 443 ml 306 ml 506 ml Packed Cells 300 ml Other 250 ml 430 ml 350 ml 400 ml 400 ml Output Urine Total 1200 ml 600 ml 1200 ml 500 ml 1225 ml Tube Feeding Residual Discard 0 ml # Bowel Movements 0 0 0 2 0 Result Diagram: 04/18/1635804/18/16358 Objective Remarks GENERAL: Obese male patient. SKIN: Warm and dry. HEAD: Normocephalic. EYES: No scleral icterus. No injection or drainage. NECK: trach in place. CARDIOVASCULAR: Regular rate and rhythm without murmurs, gallops, or rubs. RESPIRATORY: Breath sounds equal bilaterally. No accessory muscle use. GASTROINTESTINAL: Abdomen soft, non-tender, nondistended. EXTREMITIES: trace edema of hands and legs. NEUROLOGICAL: Awake, alert. Does not follow commands. Does not appear to track consistently with eyes. 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 Significant residual cognitive deficit. -Nonverbal at this time; appears to be in a locked in state. Poor detention prognosis. -Continue Keppra and Coumadin- Palliative care following. Monitor Keppra level periodically. - evaluated by neurology; continue Keppra and coumadin. -cont Paxil -Large sacral wound (6.4 cm necrotic mass seen on abdominal CT posterior to sacrum) with destruction of coccyx - hematoma, possible destructive mass - s/p plastics eval (Dr. Yoder) who has signed off after consulting colorectal, colorectal was not regional sales leader. Dr. Beard/surgery evcatherine'ed -does not recommend diverting colostomy. chances of the wound healing (whether mass or hematoma) after major surgery or debridement very low given the size of the wound and the patients overall poor prognosis. hospice would be appropriate. I have discussed with family. Palliative care following. cultures +klebsiella. pt on abx per ID. no anticoagulation due to bleeding from the wound. cont wound care (packing daily). -GI/Nutrition: Previous PEG tube exchanged by GI at bedside 03/30/2016. dietary ff. -Respiratory failure: Secondary to CVA. Patient is status post tracheostomy. Continue pulmonary toilet and neb treatments as needed. Pulmonary following. - Levsin PRN secretions. -Depression: Continue Paxil. -A-fib: continue Lopressor, cardizem. NO coumadin due to significant bleeding from the sacral wound. -UTI: Resolved. Urine culture with Klebsiella on 01/31 and repeat on 03/06 negative. Arevalo replaced on 03/07. -Coccyx pressure ulcer- cont wound care. -History of Non-Hodgkin lymphoma: s/p brain biopsy on December 13, by Neurosurgery, Dr. Marin, Pathology consistent with acute infarct without evidence of lymphoma -Seen by Oncology, Dr. Whyte, who has signed off for current admission. -DM: Hemoglobin A1c is 7.0. Continue Levemir with sliding scale insulin- monitor and adjust the regimen as needed. - MRSA in the sputum, tracheobronchitis. Chest x-ray 04/05 was clear. completed course of zyvox. mild hypokalemia; replaced. DVT prophylaxis: no coumadin due to wound bleeding. SCDs. Problem Qualifiers (1) DM (diabetes mellitus): Qualified Code: E11.9 - Type 2 diabetes mellitus without complications Lena Gonzalez MD Apr 18, 2016 15:27
--- NOTE | 2016-04-18 15:40 | HHI.HCPN ---
Reason for visit a. To assist with evaluation and management of symptoms including: dyspnea, encephalopathy, depression b. To assist medical decision maker(s) with: better understanding of current medical conditions; weighing benefits/burdens of medical treatment options; making medical treatment decisions. (Tiara Colin) Subjective/Interval History Pt seen today to follow up with family-- received call from sig other Leanne and dtr Leanne requesting family mtg today. Patient remains in ICU, awaiting transfer to medical floor. VS stable. Nsg reports some episodes of tachypnea, req freq sx today. Nursing has not noted any consistent communication attempts. Patient examined following meeting with family. In completing linen change, tracheostomy suctioning. Patient eyes open not tracking. Coughing with tongue protruding. Slightly tachypneic at time of my exam, though nursing is providing tracheostomy care and suction. Vital signs stable otherwise. Generalized edema bilateral upper extremities. Did not visualize wound dressing in place though reported still with moderate amount red drainage present with each dressing change. Met with family at length, approx 45 min. discussed at length with primary nurse , medical attending Dr. Gonzalez. History brought forward from initial consult by Rita MOCTEZUMA on 01/10/16: This 59-year-old patient was admitted on 12/21/15 via the ED for facial drooping. ED physician notes that patient and patients are poor historians, EMS reported the could not provide good timelines to them. Patient also reported headache, difficulty ambulating. He had known history of recent findings of mass in the brain. During ED course had deterioration of clinical condition and able to protect his airway, unable to follow commands patient was intubated and CT brain obtained. He was admitted for further evaluation and management to the ICU. Quality Rep was consulted and following patient. Pathology on recent brain biopsy (12/13) still pending. CLINICAL/HOSPITAL COURSE: * CT brain= no focal or acute intracranial hemorrhage. New area decreased density in left occipital lobe suggestive of recent nonhemorrhagic infarct, decreased density in previously noted right occipital lobe has increased in size * Brain MRI = new area of restricted diffusion within left occipital lobe suggesting acute infarct. Interval enlargement of the area of restricted diffusion within right occipital lobe suggesting probable extension of right occipital and started on. Underlying enhancement of right occipital lobe is slightly worse than the previous exam and nonspecific. Biopsy has been performed and results are pending. Tiny focal area of restricted diffusion within right cerebellar hemisphere consistent with probable acute/subacute lacunar infarct. Signal abnormality in the SWI sequence within the right occipital lobe suggesting some hemorrhage in biopsy bed. No midline shift or extra-axial fluid collections. * CXR= no acute cardiopulmonary disease * -Neurology consulted, ordered MRA to look for vertebrobasilar stenosis, echo done last admission notes normal EF with normal valves and normal left atrial size. EEG also ordered. MR venogram ordered. EEG= abnormal study consistent with her encephalopathy. MRV indicated basilar occlusion; neurology notes discussion with family regarding chemical code only, also notes discussion regarding risks associated with the anticoagulates, was discussed with radiologist/INR recommended not helpful to extract basilar clot as this could result in patient's . It was felt the colin was infarcted. Further neurology notes "he could be locked in", is acting as if colin is infarcted. * Oncology known to patient also consulted for non-Hodgkin's lymphoma: Dr Whyte documents that there was no evidence of residual or recurrent disease on CT scans of chest, abdomen, pelvis done in October and November of this year. Pathology was still pending, had been sent to [facility] for second opinion. No acute oncology interventions recommended at that time, will follow. * 12/23 - 12/25 febrile. CPAP trials. Remains on vent off of sedation. Withdrawing to pain. Repeat brain MRI= evolving brainstem stroke. Neurology notes extensive discussion with family, notes discussion the patient is locked in but fully aware, family would like to see help patient does over the next 3 months. 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 Biopsy brain lesion appears consistent with acute infarct no lymphoma. Family desires ongoing aggressive measures, will proceed with tracheostomy. Sputum culture positive sensitive Klebsiella. * 01/01 tracheostomy, PEG tube placement * 01/04 trach collar trials, alternating with T piece. Low-grade fever 100.5. CXR = mild bibasilar atelectasis. Neuro: Spontaneously opening eyes, looking up / down, directionally to commands. * 01/07 still "locked in " , transferred off ICU to regular floor. * 01/08 pulmonology consulted-not CXR clear no evidence of pulmonary infection. He may have some underlying COPD recommends continued aerosol treatments. Further notes long discussion with family at bedside regarding tracheostomy, long-term use of trach until patient able to protect his airway, no further recommendations. Palliative care consulted to assist with clarification of goals of treatment. Family/friend interactions Met with patient daughter Leanne, significant other Leanne, and daughter's significant other for approximally 45 minutes. 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 -- Extensive review of CPR, resuscitation status, and what resuscitation entails in the hospital setting--they are considering DNR status, or at least considering intubation only status, they wish to talk more as a family before making any decisions. They will advise medical team if change to DNR desired --Review of surgery consultations recommendations including plastic surgery as well as Dr. Blevins recommendations yesterday---> family has questions regarding underlying wound process if it is in fact a mass or tumor or hematoma or infectious necrotic wound, they feel like if they had a biopsy to confirm when where another this may better inform their decision making. I did explore with them that biopsy and any surgical intervention would still be a major procedure and would not likely change patient outcome he would still have a large significant wound which could be a reversible and would not be a candidate for chemotherapy etc. if he was found to have a mass/cancerous process --Gentle/brief exploration of transitioning to comfort focus, brief exploration hospice --Family requests provider signed letter stating patient here in the hospital to provide to sons employer so he may travel back in the country to see patient- will provide them with this --Family requests [id number] pain medication as they are concerned he may have chronic ongoing pain secondary to wound and bedbound status, also request something prn for anxiety [discussed with Dr. Gonzalez, prn Ativan, scheduled pain medication to be added] --All questions answered to the best of my ability, advise I will follow-up with surgery physicians regarding their questions for biopsy, determining what his underlying process of wound . (Tiara Colin) Advance Directives Living Will: Never completed Health Care Surrogate: Never completed (Tiara Colin) Objective Vital Signs Date Time Temp Pulse Resp B/P Pulse Ox O2 Delivery O2 Flow Rate FiO2 04/18/16 14:00 84 04/18/16 12:00 99.5 94 31 126/65 97 04/18/16 12:00 94 04/18/16 10:00 90 04/18/16 08:37 96 T-piece 5.00 04/18/16 08:00 87 04/18/16 08:00 98.9 106 34 130/79 96 04/18/16 07:00 96 T-Piece 04/18/16 06:00 101 04/18/16 04:00 100 04/18/16 04:00 97.1 100 25 132/70 99 04/18/16 02:00 96 04/18/16 00:00 98.5 91 25 128/69 99 04/18/16 00:00 91 04/17/16 22:31 98 T-piece 6.00 04/17/16 22:00 92 04/17/16 20:00 98.4 96 26 120/70 100 04/17/16 20:00 100 T-Piece 04/17/16 20:00 93 04/17/16 19:35 98.4 96 26 120/70 100 04/17/16 19:20 99.2 95 25 110/61 100 04/17/16 18:00 90 04/17/16 17:30 94 04/17/16 16:00 96 04/17/16 16:00 98.3 96 24 111/61 98 Intake & Output 04/18/16 04/18/16 07:00 19:00 Intake Total 2828 ml 1802 ml Output Total 1700 ml 1225 ml Balance 1128 ml 577 ml IV Total 1259 ml 896 ml Tube Feeding 749 ml 506 ml Packed Cells 300 ml Other 520 ml 400 ml Output Urine Total 1700 ml 1225 ml # Bowel Movements 2 0 Physical Exam CONSTITUTIONAL/GENERAL: This is an adequately nourished patient, minimally interactive-eyes open does not track TUBES/LINES/DRAINS: Arevalo catheter, PEG tube, tracheostomy, SCDs, heel protection boots, on specialty air bed SKIN: No jaundice, rashes, or lesions.No wounds seen anteriorly--large wound reported to coccyx with significant ongoing oozing though I did not visualize. Skin temperature appropriate. Not diaphoretic. CARDIOVASCULAR: Regular rate and rhythm without murmurs. mildly tachycardic. Peripheral pulses symmetric. Trace peripheral edema upper extremities. RESPIRATORY/CHEST: Tracheostomy midline, no symptoms of problems around site. Symmetric, unlabored respirations. + moist cough. T piece, 28% FiO2. +course scattered rhonchi. Breath sounds equal bilaterally. GASTROINTESTINAL: Abdomen soft, no apparent tenderness, nondistended. No palpable masses. Bowel sounds normoactive. tube feed infusing via PEG. MUSCULOSKELETAL: Extremities without clubbing, cyanosis,. Trace edema upper extremities No joint effusion noted. No mottling or clubbing.+ Muscle atrophy to all 4 extremities. NEUROLOGICAL: Eyes open. Does not track examiner. does blink though not clear is to commands. No response to stimuli. No movement of extremities, no following of commands. PSYCHIATRIC: Difficult to fully assess due to clinical condition. no evident anxiety . (Tiara Colin) Diagnostic Tests Laboratory Laboratory Tests Test 04/16/16 04/17/16 04/17/16 04/17/16 04:21 04:32 15:34 16:59 White Blood Count 5.2 TH/MM3 4.5 TH/MM3 (4.0-11.0) (4.0-11.0) Red Blood Count 3.59 MIL/MM3 3.08 MIL/MM3 (4.50-5.90) (4.50-5.90) Hemoglobin 8.3 GM/DL 7.2 GM/DL 6.9 GM/DL (13.0-17.0) (13.0-17.0) (13.0-17.0) Hematocrit 26.7 % 22.7 % 22.8 % (39.0-51.0) (39.0-51.0) (39.0-51.0) Mean Corpuscular Volume 74.4 FL 73.8 FL (80.0-100.0) (80.0-100.0) Mean Corpuscular Hemoglobin 23.2 PG 23.4 PG (27.0-34.0) (27.0-34.0) Mean Corpuscular Hemoglobin 31.2 % 31.7 % Concent (32.0-36.0) (32.0-36.0) Red Cell Distribution Width 20.0 % 20.4 % (11.6-17.2) (11.6-17.2) Platelet Count 338 TH/MM3 285 TH/MM3 (150-450) (150-450) Mean Platelet Volume 7.3 FL 7.1 FL (7.0-11.0) (7.0-11.0) Neutrophils (%) (Auto) 73.3 % 63.5 % (16.0-70.0) (16.0-70.0) Lymphocytes (%) (Auto) 18.0 % 24.3 % (9.0-44.0) (9.0-44.0) Monocytes (%) (Auto) 5.5 % (0.0-8.0) 9.3 % (0.0-8.0) Eosinophils (%) (Auto) 1.7 % (0.0-4.0) 1.9 % (0.0-4.0) Basophils (%) (Auto) 1.5 % (0.0-2.0) 1.0 % (0.0-2.0) Neutrophils # (Auto) 3.8 TH/MM3 2.9 TH/MM3 (1.8-7.7) (1.8-7.7) Lymphocytes # (Auto) 0.9 TH/MM3 1.1 TH/MM3 (1.0-4.8) (1.0-4.8) Monocytes # (Auto) 0.3 TH/MM3 0.4 TH/MM3 (0-0.9) (0-0.9) Eosinophils # (Auto) 0.1 TH/MM3 0.1 TH/MM3 (0-0.4) (0-0.4) Basophils # (Auto) 0.1 TH/MM3 0.0 TH/MM3 (0-0.2) (0-0.2) CBC Comment AUTO DIFF AUTO DIFF Differential Comment AUTO DIFF AUTO DIFF CONFIRMED CONFIRMED Prothrombin Time 16.2 SEC (9.8-11.4) Prothromb Time International 1.5 RATIO Ratio Sodium Level 130 MEQ/L 137 MEQ/L (136-145) (136-145) Potassium Level 4.2 MEQ/L 3.6 MEQ/L (3.5-5.1) (3.5-5.1) Chloride Level 95 MEQ/L 103 MEQ/L (98-107) (98-107) Carbon Dioxide Level 26.2 MEQ/L 26.5 MEQ/L (21.0-32.0) (21.0-32.0) Anion Gap 9 MEQ/L (5-15) 8 MEQ/L (5-15) Blood Urea Nitrogen 10 MG/DL (7-18) 6 MG/DL (7-18) Creatinine 0.65 MG/DL 0.50 MG/DL (0.60-1.30) (0.60-1.30) Estimat Glomerular Filtration 125 ML/MIN 170 ML/MIN Rate (>89) (>89) Random Glucose 176 MG/DL 131 MG/DL (74-106) (74-106) Calcium Level 8.5 MG/DL 8.0 MG/DL (8.5-10.1) (8.5-10.1) Magnesium Level 1.8 MG/DL (1.5-2.5) Blood Type AB POSITIVE Antibody Screen NEGATIVE Crossmatch Leukocyte-Reduced Red Blood Cells Blood Bank Comment Test 04/18/16 03:59 White Blood Count 7.2 TH/MM3 (4.0-11.0) Red Blood Count 3.56 MIL/MM3 (4.50-5.90) Hemoglobin 8.6 GM/DL (13.0-17.0) Hematocrit 27.1 % (39.0-51.0) Mean Corpuscular Volume 76.3 FL (80.0-100.0) Mean Corpuscular Hemoglobin 24.1 PG (27.0-34.0) Mean Corpuscular Hemoglobin 31.6 % Concent (32.0-36.0) Red Cell Distribution Width 20.5 % (11.6-17.2) Platelet Count 269 TH/MM3 (150-450) Mean Platelet Volume 6.9 FL (7.0-11.0) Neutrophils (%) (Auto) 77.7 % (16.0-70.0) Lymphocytes (%) (Auto) 13.5 % (9.0-44.0) Monocytes (%) (Auto) 6.9 % (0.0-8.0) Eosinophils (%) (Auto) 1.2 % (0.0-4.0) Basophils (%) (Auto) 0.7 % (0.0-2.0) Neutrophils # (Auto) 5.6 TH/MM3 (1.8-7.7) Lymphocytes # (Auto) 1.0 TH/MM3 (1.0-4.8) Monocytes # (Auto) 0.5 TH/MM3 (0-0.9) Eosinophils # (Auto) 0.1 TH/MM3 (0-0.4) Basophils # (Auto) 0.0 TH/MM3 (0-0.2) CBC Comment AUTO DIFF Differential Comment AUTO DIFF CONFIRMED Sodium Level 138 MEQ/L (136-145) Potassium Level 3.5 MEQ/L (3.5-5.1) Chloride Level 106 MEQ/L (98-107) Carbon Dioxide Level 23.4 MEQ/L (21.0-32.0) Anion Gap 9 MEQ/L (5-15) Blood Urea Nitrogen 8 MG/DL (7-18) Creatinine 0.54 MG/DL (0.60-1.30) Estimat Glomerular Filtration 155 ML/MIN Rate (>89) Random Glucose 122 MG/DL (74-106) Calcium Level 8.0 MG/DL (8.5-10.1) Magnesium Level 1.8 MG/DL (1.5-2.5) (Tiara Colin) Result Diagram: 04/18/16 0359 04/18/16 0359 Procedures * 01/01 tracheostomy, PEG tube placement . 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; EEG indicates encephalopathy, neuro following patient felt to be in a "locked-in "state (2) Non-Hodgkin lymphoma Comment: -In remission status post chemotherapy completed May 2015 (3) Acute respiratory failure Comment: Pulmonology following, medical management (4) A-fib (5) Status post stereotactic brain biopsy (6) Brain lesion Comment: Status post biopsy November 2015; pathology consistent with acute infarct without evidence of lymphoma (7) DM (diabetes mellitus) Symptom Scale: (1) Dysphagia Comment: Status post significant CVA, has had PEG tube placed- no improvement per ongoing ST eval (2) Dyspnea Comment: Respiratory failure secondary to CVA, status post tracheostomy, pulmonary following (3) Encephalopathy Comment: Significant CVA, "locked-in" state -- though pt not noted with consistent attempts to communicate. ? vegetative (4) Malnutrition Comment: Status post PEG tube placement. Episode of emesis yesterday, currently tolerating tube feeding without issue (5) Depression Comment: At risk for related to "locked in status", communication difficulties , situational, but would likely benefit from anti-depressant Pertinent Non-Medical Issues * Psychosocial:Mr. Flores is originally from [place]. He moved to the around 35 years ago, first to [place] and later to [place]. He is not legally but remains with his ex-, Leanne. They have been together for 31+ years and have three children together: Leanne, Gerald, and Ginny. Gerald is currently in [facility] for work. Mr. Flores has 2 brothers and 7 sisters. His father is of old age. His mother is alive and was living with the patient. Greatly enjoys his family. Retired. 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 * Spiritual: * Legal:Patient due to clinical condition is currently unable to participate in medical decision making. Not clear if or when he will regain this ability. Family does not believe he has completed advance directives. per [place] Statutes, medical proxy decision making would fall to the majority of adult children, as Mr. Flores is not legally . * Ethical issues impacting care: Important Contacts Leanne, daughter: [phone] Ginny, daughter: [phone] Gerald Flores, son: currently in [facility] for work but has communication with his siblings. Leanne, ex-: [phone] Prognosis This patient has had 20 day hospital course thus far, admitted on 62 for a large brainstem infarct, bilateral occipital infarcts. He has subsequently had ongoing encephalopathy and severe communication limitations, neurology feels he is in a "locked-in "state. He has suffered from respiratory failure likely secondary to significant CVA. Appears he should be able to survive this acute hospitalization, however not clear when or if he will regain ability to communicate, based on current assessments patient will require long-term care placement. He will remain high risk for potential competition/setbacks due to immobile status including infections, DVT etc. . Code Status: Full Code Plan * GOALS: Very aggressive. See family conference component on initial consult for additional detail. Meeting In summary: Initially they had many questions regarding admission and biopsy which occurred in November, they ask about differentials and decision making leading to the biopsy, and have many concerns regarding that clinical course--advised that I could not speak to any of those questions or processes as I was not involved in his care and decision making at that time, recommend them to direct those specific questions to those initial providers which provided those services. Otherwise review of conditions, goals as detailed in "issues discussed". Family expresses that Mr. Flores did remarkably well following his chemotherapy for lymphoma just last year, and that he had been doing fine until recent issue in November. They endorsed that he is a fighter, that he is a very optimistic person, and that they are certain he is "in there "and would want to continue fighting for whatever recovery he might have." They have many questions regarding rehabilitation services and placement as well as financial coverage for these services, advised that case management could assist them with the various applications which already in process, but that any placement would depend on funding, or alternatively coleman placement which is up to any individual institution. They would like to maximize PT/OT/ST ongoing while here in the hospital. They also request courtesy consult of to follow him for pulmonary as he is known to the family through their confucianist. * 04/18/16-extensive meeting with family today, see subjective for additional information. Family is beginning to consider DNR status. Family is beginning to ask questions regarding comfort focused care. They do still have questions regarding current wound status and possible surgical interventions for further evaluation. They also request scheduled medication for pain, prn Ativan for anxiety. Discussed all with medical attending, primary nurse. * They have requested a letter stating patient hospitalized to provide for patient's son employer so that he may travel in town to see patient, palliative will provide with this * CODE STATUSfull code * Symptoms: == Dysphagia--Status post significant CVA, has had PEG tube placed; no improvement per ST following --trial with a passy mikey valve, patient with no response or attempt to verbalize--ST signed off == Dyspnea --Respiratory failure secondary to CVA, status post tracheostomy, pulmonary following; currently no apparent distress/ O2 sats / O2 requirements stable--increase secretions and rhonchi the past day or so, O2 sat stable == Encephalopathy--Significant CVA, "locked-in" state; follow-up MRI with no significant changes; family endorses patient continues to have limited communication via blinks and eye motion-- does not consistently attempt to communicate w therapies, appears vegetative == Malnutrition--Status post PEG tube placement. Episode of emesis prompting transfer to ICU, currently tolerating TF; having bowel movements no further episodes of vomiting == depression/anxiety -- At risk for related to "locked in status", communication difficulties, situational, but would likely benefit from anti- depressant. Family reports tearful at times when they talk to him. prev. started on celexa, then d/c per family request. On Paxil per family request. previously tearful at times during exam. No distress observed or reported today , ? Pain versus emotional distress. Will cont to evaluate. == Pain: Tearful,? At times blinks/looks up for yes to pain per family, nursing // nursing to administer PRN [place]. Potential sources would include large sacral wound, bedbound status. Nursing has expressed that they use PRN sparingly as family has concerns that too much will contribute to his lethargy/ decreased alertness. Family today has requested [id number] medication for comfort, this to be added by medical attending. Additionally prn Ativan added for anxiety that may be associated with pain. * Palliative care will continue to follow during hospital course as condition evolves, to assist patient/decision-maker with understanding of medical conditions, weighing benefits/burdens of treatment options, for clarification of goals of treatment. Additionally will assist with any symptoms of palliative concern (Tiara Colin) Time Spent Total Floor Time (mins): 65 Face to Face Time (mins): 50 >50% Counseling/Coord of Care: Yes (discussed with primary nurse, medical attending) (Tiara Colin) Attestation To help prompt me to consider important information that might be impacting today's encounter and assessment, information from prior notes written by myself or my colleagues may have been "brought forward" into today's note. My signature on this note, however, is an attestation that I personally performed the exam, history, and/or decision-making noted today, and, unless otherwise indicated, the interactions with patient, family, and staff as well as the review of records all occurred today. I also attest that the listed assessment and stated plan reflect my best clinical judgment today based on the combination of historical information, prior notes, and today's exam/ interactions. When time spent is documented, it refers only to time spent today by the signer, or if indicated, combined time spent today by collaborating physician/nurse practitioner. (Tiara Colin) Collaborating MD Comments Chart reviewed. Patient discussed with palliative care F[employer]ER. Above note reviewed and I concur. . (Cal Michelle MD) Tiara Colin Apr 18, 2016 15:40 Cal Michelle MD Jun 12, 2016 14:19
--- NOTE | 2016-04-18 17:18 | PD.CAR.PN ---
CVT Progress Note Subjective/Hospital Course: Patient with a fixed CVA and decreased level of consciousness for last 4 months now with PEG and trach large sacral decubitus to be attended by plastic surgery and question of diverting colostomy or any other type of procedure. This unfortunate gentleman has a permanent neurologic deficit he allegedly opens his eyes but does not communicate in any other way and in my presence he did not respond to verbal or tactile stimuli did not have any motoric activity and his Cris Coma Scale was 3T Patient has large soft area over his sacrum which I examined when family was gone and this is covered with skin but the underlying there is a large necrotic area all the decubitus to will need to be debrided. CT scan reveals erosion into the sacrum making this stage V decubitus. I have had a long discussion with patient's family including his and sister in the presence of the mom about possibilities and further options. It is my definite medical opinion that patient has no reasonable chance of meaningful recovery he has a fixed neurologic damage and will not improve. The sacral decubitus should be debrided but with presence of osteomyelitis even with antibiotics therapy this cannot be permanently recovered and healed. I agree with the original opinion of Dr. juan carlos Leung and I strongly urge palliative care evaluation which would explore social medical gnosticism and apical aspects of this situation. Doing diverting colostomy would not benefit this patient at this time and would care and necessary burden of pain but would present in my opinion at the same time, futile surgery. 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 care I thank you much for referral J Objective: Vital Signs Date Time Temp Pulse Resp B/P Pulse Ox O2 Delivery O2 Flow Rate FiO2 04/18/16 16:00 90 04/18/16 16:00 98.5 90 27 112/60 94 04/18/16 14:00 84 04/18/16 12:00 99.5 94 31 126/65 97 04/18/16 12:00 94 04/18/16 10:00 90 04/18/16 08:37 96 T-piece 5.00 28 04/18/16 08:00 87 04/18/16 08:00 98.9 106 34 130/79 96 04/18/16 07:00 96 T-Piece 28 04/18/16 06:00 101 04/18/16 04:00 100 04/18/16 04:00 97.1 100 25 132/70 99 04/18/16 02:00 96 04/18/16 00:00 98.5 91 25 128/69 99 04/18/16 00:00 91 04/17/16 22:31 98 T-piece 6.00 28 04/17/16 22:00 92 04/17/16 20:00 98.4 96 26 120/70 100 04/17/16 20:00 100 T-Piece 28 04/17/16 20:00 93 04/17/16 19:35 98.4 96 26 120/70 100 04/17/16 19:20 99.2 95 25 110/61 100 04/17/16 18:00 90 04/17/16 17:30 94 Result Diagram: 04/18/16 0359 04/18/16 0359 Julio Blevins MD Apr 18, 2016 17:18
[2016-04-18] MEDS: ACETAMINOPHEN/HYDROcodone 325 MG/5 MG TAB PEG SCH (17:48)
[2016-04-18] MEDS: PARoxetine HCL SUSP 20 MG/10 ML UDC PEG SCH (18:08)
[2016-04-18] MEDS: INSULIN DETEMIR 100 UNITS/ML VIAL SQ SCH (23:16)
[2016-04-19] VITALS (13 sets, daily range): BP systolic 101–142; BP diastolic 62–78; PULSE 73–111; RESP 20–26; TEMP 98.6–99.5; O2SAT 95–99
[2016-04-19] MEDS: FREE WATER TUBE SCH ×6 (00:25→20:00)
[2016-04-19] MEDS: RESP: ALBUTEROL 2.5 MG/IPRATROPIUM 0.5 MG NEB (PRN) NEB (02:24)
[2016-04-19] MEDS: ACETIC ACID 0.25% SOLN 1000 ML IRR BTL IRRIGATION SCH ×3 (06:23→20:12)
[2016-04-19] MEDS: ACETAMINOPHEN/HYDROcodone 325 MG/5 MG TAB PEG SCH ×4 (06:24→17:21)
[2016-04-19] MEDS: INSULIN ASPART SUPPLEMENTAL SCALE SQ SCH ×3 (07:00→15:46)
[2016-04-19] MEDS: RANITIDINE HCL SYRUP 150 MG/10 ML UDC PO SCH (08:29)
[2016-04-19] MEDS: levETIRAcetam 500 MG/5 ML UDC TUBE SCH ×2 (08:29→20:09)
[2016-04-19] MEDS: SENNOSIDES SYRUP 8.8 MG/5 ML CUP TUBE SCH (08:29)
[2016-04-19] MEDS: METOPROLOL TARTRATE 50 MG TAB PO SCH ×2 (08:29→20:11)
[2016-04-19] MEDS: ARTIFICIAL TEARS OPTH OINT 3.5 APPLIC/3.5 GM TUBO EACH EYE SCH ×2 (08:29→20:10)
[2016-04-19] MEDS: DILTIAZEM HCL 60 MG TAB PO SCH ×4 (08:30→20:10)
[2016-04-19] MEDS: NYSTATIN 100,000 U/GM PWD 15 GM BTL TOPICAL SCH ×2 (08:30→20:11)
[2016-04-19] MEDS: SODIUM CHLOR 0.9% 1000 ML INJ 1,000 ML IV SCH ×2 (08:30→20:12)
[2016-04-19] MEDS: cefTRIAXone INJ 2,000 MG in SODIUM CHLORIDE 0.9% INJ 100 ML IV SCH (12:26)
[2016-04-19] MEDS: PARoxetine HCL SUSP 20 MG/10 ML UDC PEG SCH (18:28)
--- NOTE | 2016-04-19 18:37 | HHI.PR ---
Subjective Remarks Late entry. Pt seen at 4:45 p.m. D/w RN. Still slow bleeding from wound. AF. Objective Vitals Vital Signs Date Time Temp Pulse Resp B/P Pulse Ox O2 Delivery O2 Flow Rate FiO2 04/19/16 18:00 89 04/19/16 16:00 98.9 80 20 119/67 97 04/19/16 16:00 80 04/19/16 14:00 86 04/19/16 12:00 90 04/19/16 12:00 99.5 90 25 119/70 98 04/19/16 10:00 91 04/19/16 08:00 99.1 108 26 120/63 97 04/19/16 08:00 111 04/19/16 07:00 96 T-Piece 28 04/19/16 06:00 99 04/19/16 04:00 99 04/19/16 04:00 99.1 102 26 142/78 95 04/19/16 02:00 99 04/19/16 00:00 98.7 86 25 117/73 99 04/19/16 00:00 99 04/18/16 22:00 99 04/18/16 20:27 96 T-piece 28 04/18/16 20:00 99.2 90 23 104/58 94 04/18/16 20:00 99 04/18/16 19:00 95 T-Piece 28 I/O 04/18/16 04/18/16 04/18/16 04/19/16 04/19/16 04/19/16 07:00 15:00 23:00 07:00 15:00 23:00 Intake Total 1231 ml 1802 ml 1225 ml 1225 ml 1487 ml Output Total 500 ml 1225 ml 550 ml 550 ml 850 ml Balance 731 ml 577 ml 675 ml 675 ml 637 ml IV Total 525 ml 896 ml 637 ml 637 ml 698 ml Tube Feeding 306 ml 506 ml 388 ml 388 ml 389 ml Other 400 ml 400 ml 200 ml 200 ml 400 ml Output Urine Total 500 ml 1225 ml 550 ml 550 ml 850 ml # Bowel Movements 2 0 0 0 0 Result Diagram: 04/18/16 0359 04/18/16 0359 Objective Remarks GENERAL: Obese male patient. SKIN: Warm and dry. HEAD: Normocephalic. EYES: No scleral icterus. No injection or drainage. NECK: trach in place. CARDIOVASCULAR: Regular rate and rhythm without murmurs, gallops, or rubs. RESPIRATORY: Breath sounds equal bilaterally. No accessory muscle use. GASTROINTESTINAL: Abdomen soft, non-tender, nondistended. EXTREMITIES: trace edema of hands and legs. NEUROLOGICAL: Awake, alert. Does not follow commands. Does not appear to track consistently with eyes. 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 Significant residual cognitive deficit. -Nonverbal at this time; appears to be in a locked in state. Poor residential prognosis. -Continue Keppra and Coumadin- Palliative care following. Monitor Keppra level periodically. - evaluated by neurology; continue Keppra and coumadin. -cont Paxil -Large sacral wound (6.4 cm necrotic mass seen on abdominal CT posterior to sacrum) with destruction of coccyx - hematoma, possible destructive mass - s/p plastics eval (Dr. Yoder) who has signed off after consulting colorectal, colorectal was not communications department head. Dr. Beard/surgery eval'ed -does not recommend diverting colostomy. chances of the wound healing (whether mass or hematoma) after major surgery or debridement very low given the size of the wound and the patients overall poor prognosis. hospice would be appropriate. I have discussed with family. Palliative care following. cultures +klebsiella. pt on abx per ID. no anticoagulation due to bleeding from the wound. cont wound care (packing daily) . Discussed with pt's mother and sister at bedside. repeat CBC in a.m. -GI/Nutrition: Previous PEG tube exchanged by GI at bedside 03/30/2016. dietary ff. -Respiratory failure: Secondary to CVA. Patient is status post tracheostomy. Continue pulmonary toilet and neb treatments as needed. Pulmonary following. - Levsin PRN secretions. -Depression: Continue Paxil. -A-fib: continue Lopressor, cardizem. NO coumadin due to significant bleeding from the sacral wound. -UTI: Resolved. Urine culture with Klebsiella on 01/31 and repeat on 03/06 negative. Arevalo replaced on 03/07. -Coccyx pressure ulcer- cont wound care. -History of Non-Hodgkin lymphoma: s/p brain biopsy on December 13, by Neurosurgery, Dr. Marin, Pathology consistent with acute infarct without evidence of lymphoma -Seen by Oncology, Dr. Whyte, who has signed off for current admission. -DM: Hemoglobin A1c is 7.0. Continue Levemir with sliding scale insulin- monitor and adjust the regimen as needed. - MRSA in the sputum, tracheobronchitis. Chest x-ray 04/05 was clear. completed course of zyvox. mild hypokalemia; replaced. DVT prophylaxis: no coumadin due to wound bleeding. SCDs. Problem Qualifiers (1) DM (diabetes mellitus): Qualified Code: E11.9 - Type 2 diabetes mellitus without complications Lena Gonzalez MD Apr 19, 2016 18:37
[2016-04-19] MEDS: INSULIN DETEMIR 100 UNITS/ML VIAL SQ SCH (20:09)
[2016-04-20] VITALS (19 sets, daily range): BP systolic 103–127; BP diastolic 56–75; PULSE 68–91; RESP 16–26; TEMP 98.6–99.8; O2SAT 95–100
[2016-04-20 03:51] LABS: HEMATOCRIT 23.7 % (39.0-51.0); MEAN CELL VOLUME 77.8 FL (80.0-100.0); MEAN CORPUSCULAR HEMOGLOBIN 24.3 PG (27.0-34.0); MEAN CORPUSCULAR HGB CONC 31.2 % (32.0-36.0); PLATELET COUNT 289 TH/MM3 (150-450); RED BLOOD COUNT 3.04 MIL/MM3 (4.50-5.90); WHITE BLOOD COUNT 5.8 TH/MM3 (4.0-11.0)
[2016-04-20 03:56] LABS: REVIEW FLAG FINAL
[2016-04-20] MEDS: FREE WATER TUBE SCH ×6 (04:00→20:00)
[2016-04-20 04:17] LABS: BICARBONATE 23.1 MEQ/L (21.0-32.0); POTASSIUM 3.3 MEQ/L (3.5-5.1)
[2016-04-20] MEDS: ACETIC ACID 0.25% SOLN 1000 ML IRR BTL IRRIGATION SCH ×3 (05:47→22:00)
[2016-04-20] MEDS: ACETAMINOPHEN/HYDROcodone 325 MG/5 MG TAB PEG SCH ×4 (05:53→17:34)
[2016-04-20] MEDS: RANITIDINE HCL SYRUP 150 MG/10 ML UDC PO SCH (08:36)
[2016-04-20] MEDS: levETIRAcetam 500 MG/5 ML UDC TUBE SCH ×2 (08:36→20:58)
[2016-04-20] MEDS: LACTULOSE SYRUP 20 GM/30 ML CUP PEG SCH (08:37)
[2016-04-20] MEDS: SENNOSIDES SYRUP 8.8 MG/5 ML CUP TUBE SCH (08:37)
[2016-04-20] MEDS: METOPROLOL TARTRATE 50 MG TAB PO SCH ×2 (08:37→20:57)
[2016-04-20] MEDS: ARTIFICIAL TEARS OPTH OINT 3.5 APPLIC/3.5 GM TUBO EACH EYE SCH ×2 (08:37→20:57)
[2016-04-20] MEDS: DILTIAZEM HCL 60 MG TAB PO SCH ×4 (08:37→20:57)
[2016-04-20] MEDS: NYSTATIN 100,000 U/GM PWD 15 GM BTL TOPICAL SCH ×2 (08:37→20:58)
[2016-04-20] MEDS: SODIUM CHLOR 0.9% 1000 ML INJ 1,000 ML IV SCH (08:38)
[2016-04-20] MEDS: cefTRIAXone INJ 2,000 MG in SODIUM CHLORIDE 0.9% INJ 100 ML IV SCH (12:19)
--- NOTE | 2016-04-20 13:18 | HHI.PR ---
Subjective Remarks AF Objective Vitals Vital Signs Date Time Temp Pulse Resp B/P Pulse Ox O2 Delivery O2 Flow Rate FiO2 04/20/16 12:00 99.8 86 18 115/63 95 04/20/16 12:00 81 04/20/16 10:00 82 04/20/16 09:33 Aerosol Mask 28 04/20/16 09:33 96 T-piece 28 04/20/16 08:00 98.9 90 20 107/63 95 04/20/16 08:00 84 04/20/16 07:00 98 T-Piece 28 04/20/16 06:00 91 04/20/16 04:00 73 04/20/16 04:00 99.1 86 26 106/66 96 04/20/16 02:00 79 04/20/16 00:00 98.8 81 26 103/63 95 04/20/16 00:00 82 04/19/16 22:00 73 04/19/16 20:33 96 T-piece 8.00 28 04/19/16 20:00 90 04/19/16 20:00 98.6 90 25 101/62 95 04/19/16 19:00 96 T-Piece 28 04/19/16 18:00 89 04/19/16 16:00 98.9 80 20 119/67 97 04/19/16 16:00 80 04/19/16 14:00 86 I/O 04/19/16 04/19/16 04/19/16 04/20/16 04/20/16 04/20/16 07:00 15:00 23:00 07:00 15:00 23:00 Intake Total 1225 ml 1487 ml 1200 ml 1360 ml Output Total 550 ml 850 ml 600 ml 800 ml Balance 675 ml 637 ml 600 ml 560 ml Intake Oral 0 ml 0 ml IV Total 637 ml 698 ml 420 ml 600 ml Tube Feeding 388 ml 389 ml 380 ml 360 ml Other 200 ml 400 ml 400 ml 400 ml Output Urine Total 550 ml 850 ml 600 ml 800 ml # Bowel Movements 0 0 2 3 Result Diagram: 04/20/165 04/20/16334 Objective Remarks GENERAL: Obese male patient. SKIN: Warm and dry. HEAD: Normocephalic. EYES: No scleral icterus. No injection or drainage. NECK: trach in place. CARDIOVASCULAR: Regular rate and rhythm without murmurs, gallops, or rubs. RESPIRATORY: Breath sounds equal bilaterally. No accessory muscle use. GASTROINTESTINAL: Abdomen soft, non-tender, nondistended. EXTREMITIES: trace edema of hands and legs. NEUROLOGICAL: Awake, alert. Does not follow commands. Does not appear to track consistently with eyes. 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 Significant residual cognitive deficit. -Nonverbal at this time; appears to be in a locked in state. Poor fci prognosis. -Continue Keppra and Coumadin- Palliative care following. Monitor Keppra level periodically. - evaluated by neurology; continue Keppra and coumadin. -cont Paxil -Large sacral wound (6.4 cm necrotic mass seen on abdominal CT posterior to sacrum) with destruction of coccyx - hematoma, possible destructive mass - s/p plastics eval (Dr. Yoder) who has signed off after consulting colorectal, colorectal was not licensed mental health professional. Dr. Beard/surgery eval'ed -does not recommend diverting colostomy. chances of the wound healing (whether mass or hematoma) after major surgery or debridement very low given the size of the wound and the patients overall poor prognosis. hospice would be appropriate. I have discussed with family. Palliative care following. cultures +klebsiella. pt on abx per ID. no anticoagulation due to bleeding from the wound. cont wound care (packing daily) . Discussed with family. repeat CBC in a.m. Anemia of acute blood loss - secondary to bleeding from the wound. transfuse 2 units pRBCs today, repeat CBC in a.m. -GI/Nutrition: Previous PEG tube exchanged by GI at bedside 03/30/2016. dietary ff. -Respiratory failure: Secondary to CVA. Patient is status post tracheostomy. Continue pulmonary toilet and neb treatments as needed. Pulmonary following. - Levsin PRN secretions. -Depression: Continue Paxil. -A-fib: continue Lopressor, cardizem. NO coumadin due to significant bleeding from the sacral wound. -UTI: Resolved. Urine culture with Klebsiella on 01/31 and repeat on 03/06 negative. -Coccyx pressure ulcer- cont wound care. -History of Non-Hodgkin lymphoma: s/p brain biopsy on December 13, by Neurosurgery, Dr. Marin, Pathology consistent with acute infarct without evidence of lymphoma -Seen by Oncology, Dr. Whyte, who has signed off for current admission. -DM: Hemoglobin A1c is 7.0. Continue Levemir with sliding scale insulin- monitor and adjust the regimen as needed. - MRSA in the sputum, tracheobronchitis. Chest x-ray 04/05 was clear. completed course of zyvox. mild hypokalemia; replaced. DVT prophylaxis: no coumadin due to wound bleeding. SCDs. Problem Qualifiers (1) DM (diabetes mellitus): Qualified Code: E11.9 - Type 2 diabetes mellitus without complications Lena Gonzalez MD Apr 20, 2016 13:18
[2016-04-20] MEDS: INSULIN ASPART SUPPLEMENTAL SCALE SQ SCH ×2 (16:00→20:58)
[2016-04-20] MEDS: PARoxetine HCL SUSP 20 MG/10 ML UDC PEG SCH (17:37)
[2016-04-20] MEDS: INSULIN DETEMIR 100 UNITS/ML VIAL SQ SCH (20:57)
[2016-04-21] VITALS (14 sets, daily range): BP systolic 98–134; BP diastolic 60–75; PULSE 74–96; RESP 21–30; TEMP 98.3–100.1; O2SAT 95–99
[2016-04-21] MEDS: ACETAMINOPHEN/HYDROcodone 325 MG/5 MG TAB PEG SCH ×5 (00:15→22:56)
[2016-04-21] MEDS: FREE WATER TUBE SCH ×7 (04:00→22:56)
[2016-04-21 04:37] LABS: AUTOMATED NEUTROPHIL # 5.6 TH/MM3 (1.8-7.7); BASOPHIL # 0.1 TH/MM3 (0-0.2); BASOPHIL % 0.9 % (0.0-2.0); EOSINOPHIL # 0.2 TH/MM3 (0-0.4); EOSINOPHIL % 2.6 % (0.0-4.0); HEMATOCRIT 31.2 % (39.0-51.0); HEMO FLAGS DIFF FINAL; LYMPH % 12.3 % (9.0-44.0); LYMPHOCYTE # 0.9 TH/MM3 (1.0-4.8); MEAN CELL VOLUME 79.4 FL (80.0-100.0); MEAN CORPUSCULAR HEMOGLOBIN 26.2 PG (27.0-34.0); MONO % 5.4 % (0.0-8.0); NEUT % 78.8 % (16.0-70.0); PLATELET COUNT 278 TH/MM3 (150-450); RED BLOOD COUNT 3.93 MIL/MM3 (4.50-5.90); RED CELL DISTRIBUTION WIDTH 21.2 % (11.6-17.2); WHITE BLOOD COUNT 7.1 TH/MM3 (4.0-11.0)
[2016-04-21 04:54] LABS: BICARBONATE 25.1 MEQ/L (21.0-32.0); POTASSIUM 3.5 MEQ/L (3.5-5.1)
[2016-04-21] MEDS: ACETIC ACID 0.25% SOLN 1000 ML IRR BTL IRRIGATION SCH ×3 (05:59→22:00)
[2016-04-21] MEDS: INSULIN ASPART SUPPLEMENTAL SCALE SQ SCH ×4 (06:00→21:00)
[2016-04-21] MEDS: SENNOSIDES SYRUP 8.8 MG/5 ML CUP TUBE SCH (09:41)
[2016-04-21] MEDS: levETIRAcetam 500 MG/5 ML UDC TUBE SCH ×2 (09:41→19:49)
[2016-04-21] MEDS: LACTULOSE SYRUP 20 GM/30 ML CUP PEG SCH (09:41)
[2016-04-21] MEDS: METOPROLOL TARTRATE 50 MG TAB PO SCH ×2 (09:41→21:00)
[2016-04-21] MEDS: DILTIAZEM HCL 60 MG TAB PO SCH ×4 (09:42→19:50)
[2016-04-21] MEDS: RANITIDINE HCL SYRUP 150 MG/10 ML UDC PO SCH (09:42)
[2016-04-21] MEDS: SODIUM CHLORIDE 0.9% FLUSH 5 ML FLUSH IVF PRN (09:42)
[2016-04-21] MEDS: ARTIFICIAL TEARS OPTH OINT 3.5 APPLIC/3.5 GM TUBO EACH EYE SCH ×2 (09:43→19:50)
[2016-04-21] MEDS: NYSTATIN 100,000 U/GM PWD 15 GM BTL TOPICAL SCH ×2 (09:43→19:51)
[2016-04-21] MEDS: cefTRIAXone INJ 2,000 MG in SODIUM CHLORIDE 0.9% INJ 100 ML IV SCH (11:21)
--- NOTE | 2016-04-21 14:32 | HHI.PR ---
Subjective Remarks Patient has been afebrile. Patient has edema of the arms. Patient's mother is at bedside and requested I speak to the patient's cousin who is a physician in [place]. Objective Vitals Vital Signs Date Time Temp Pulse Resp B/P Pulse Ox O2 Delivery O2 Flow Rate FiO2 04/21/16 08:53 96 T-piece 28 04/21/16 08:53 96 04/21/16 08:00 97 T-Piece 28 04/21/16 08:00 94 04/21/16 08:00 99.0 92 21 115/66 97 04/21/16 06:00 96 04/21/16 04:00 98.3 81 24 126/74 98 04/21/16 04:00 81 04/21/16 02:00 90 04/21/16 00:00 98.7 85 24 134/73 96 04/21/16 00:00 84 04/20/16 22:00 71 04/20/16 21:23 97 T-piece 6.00 28 04/20/16 20:00 90 04/20/16 20:00 98.6 78 22 127/73 96 04/20/16 19:00 99 T-Piece 28 04/20/16 18:30 99.8 86 18 114/56 95 04/20/16 18:15 99.5 88 16 118/65 99 04/20/16 18:15 99.8 90 16 118/65 99 04/20/16 18:00 89 04/20/16 17:30 99.7 90 20 122/75 99 04/20/16 16:30 99.5 68 18 106/59 100 04/20/16 16:15 99.5 89 18 125/67 100 04/20/16 16:00 89 04/20/16 16:00 99.5 69 23 125/67 96 I/O 04/20/16 04/20/16 04/20/16 04/21/16 04/21/16 04/21/16 07:00 15:00 23:00 07:00 15:00 23:00 Intake Total 1360 ml 1476 ml 1667 ml 1367 ml Output Total 800 ml 1150 ml 1400 ml 1250 ml Balance 560 ml 326 ml 267 ml 117 ml Intake Oral 0 ml 0 ml IV Total 600 ml 638 ml 411 ml 522 ml Tube Feeding 360 ml 438 ml 356 ml 385 ml Packed Cells 600 ml Other 400 ml 400 ml 300 ml 460 ml Output Urine Total 800 ml 1150 ml 1400 ml 1250 ml # Bowel Movements 3 0 0 1 Result Diagram: 04/21/1633304/21/16333 Objective Remarks GENERAL: Obese male patient. SKIN: Warm and dry. HEAD: Normocephalic. EYES: No scleral icterus. No injection or drainage. NECK: trach in place. CARDIOVASCULAR: Regular rate and rhythm without murmurs, gallops, or rubs. RESPIRATORY: Breath sounds equal bilaterally. No accessory muscle use. GASTROINTESTINAL: Abdomen soft, non-tender, nondistended. EXTREMITIES: 1+ edema of hands and legs. NEUROLOGICAL: Awake, alert. Does not follow commands. Does not appear to track consistently with eyes. 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 Significant residual cognitive deficit. -Nonverbal at this time; appears to be in a locked in state. Poor care home prognosis. Patient's mother does not appear to accept his poor prognosis and continues to hope for recovery. -Continue Keppra and Coumadin- Palliative care following. Monitor Keppra level periodically. - evaluated by neurology; continue Keppra and coumadin. -cont Paxil as per family request. -Large sacral necrotic mass (6.[address] posterior to sacrum) with destruction of coccyx - hematoma vs possible destructive mass - s/p plastics eval (I discussed the patient previously with Dr. Yoder) who has now signed off. He recommended consulting colorectal to see if they would be able to address the area. Dr. Beard/surgery eval'ed -does not recommend diverting colostomy. chances of the wound healing (whether mass or hematoma) after major surgery or debridement very low given the size of the wound and the patients overall poor prognosis. hospice would be appropriate. I have discussed with family. Palliative care following. cultures +klebsiella. pt on abx per ID. no anticoagulation due to bleeding from the wound. cont wound care (packing daily) . Discussed with family, including patient's cousin who is a physician in [place]. I offered to discuss with plastic surgery getting a tissue diagnosis to rule out cancer if it would put the patient's family at ease, however pursuing aggressive surgery overlooks the patient's overall poor neurologic prognosis. The patient would not be likely to heal from this large wound given his immobility. Anemia of acute blood loss - secondary to bleeding from the wound. transfuse 2 units pRBCs today, hemoglobin is 10 today. Continue to follow CBC every 2-3 days. -GI/Nutrition: Previous PEG tube exchanged by GI at bedside 03/30/2016. dietary ff. -Respiratory failure: Secondary to CVA. Patient is status post tracheostomy. Continue pulmonary toilet and neb treatments as needed. Pulmonary following. - Levsin PRN secretions. -Depression: Continue Paxil. -A-fib: continue Lopressor, cardizem. NO coumadin due to significant bleeding from the sacral wound. -UTI: Resolved. Urine culture with Klebsiella on 01/31 and repeat on 03/06 negative. -Coccyx pressure ulcer- cont wound care. -History of Non-Hodgkin lymphoma: s/p brain biopsy on December 13, by Neurosurgery, Dr. Marin, Pathology consistent with acute infarct without evidence of lymphoma -Seen by Oncology, Dr. Whyte, who has signed off for current admission. -DM: Hemoglobin A1c is 7.0. Continue Levemir with sliding scale insulin- monitor and adjust the regimen as needed. - MRSA in the sputum, tracheobronchitis. Chest x-ray 04/05 was clear. completed course of zyvox. mild hypokalemia; replaced. DVT prophylaxis: no coumadin due to wound bleeding. SCDs. Problem Qualifiers (1) DM (diabetes mellitus): Qualified Code: E11.9 - Type 2 diabetes mellitus without complications Lena Gonzalez MD Apr 21, 2016 14:32
[2016-04-21] MEDS: PARoxetine HCL SUSP 20 MG/10 ML UDC PEG SCH (18:31)
[2016-04-21] MEDS: INSULIN DETEMIR 100 UNITS/ML VIAL SQ SCH (19:50)
[2016-04-22] VITALS (14 sets, daily range): BP systolic 114–147; BP diastolic 67–94; PULSE 74–102; RESP 13–25; TEMP 97.9–99.1; O2SAT 95–98
[2016-04-22 03:47] LABS: AUTOMATED NEUTROPHIL # 4.9 TH/MM3 (1.8-7.7); BASOPHIL % 0.7 % (0.0-2.0); EOSINOPHIL # 0.2 TH/MM3 (0-0.4); EOSINOPHIL % 2.4 % (0.0-4.0); HEMO FLAGS DIFF FINAL; LYMPHOCYTE # 0.8 TH/MM3 (1.0-4.8); MEAN CORPUSCULAR HEMOGLOBIN 25.8 PG (27.0-34.0); MEAN CORPUSCULAR HGB CONC 33.1 % (32.0-36.0); MONO % 5.9 % (0.0-8.0); PLATELET COUNT 269 TH/MM3 (150-450); RED BLOOD COUNT 3.85 MIL/MM3 (4.50-5.90); RED CELL DISTRIBUTION WIDTH 21.4 % (11.6-17.2); WHITE BLOOD COUNT 6.3 TH/MM3 (4.0-11.0)
[2016-04-22 04:02] LABS: BICARBONATE 27.8 MEQ/L (21.0-32.0); POTASSIUM 3.3 MEQ/L (3.5-5.1)
[2016-04-22] MEDS: ACETIC ACID 0.25% SOLN 1000 ML IRR BTL IRRIGATION SCH ×3 (06:00→22:00)
[2016-04-22] MEDS: ACETAMINOPHEN/HYDROcodone 325 MG/5 MG TAB PEG SCH ×4 (07:00→23:42)
[2016-04-22] MEDS: FREE WATER TUBE SCH ×6 (07:00→23:42)
[2016-04-22] MEDS: INSULIN ASPART SUPPLEMENTAL SCALE SQ SCH ×4 (07:00→21:53)
[2016-04-22] MEDS: HYOSCYAMINE 0.125 MG TAB G-TUBE PRN (08:46)
[2016-04-22] MEDS: DILTIAZEM HCL 60 MG TAB PO SCH ×4 (08:46→21:00)
[2016-04-22] MEDS: METOPROLOL TARTRATE 50 MG TAB PO SCH ×2 (08:46→22:22)
[2016-04-22] MEDS: levETIRAcetam 500 MG/5 ML UDC TUBE SCH ×2 (08:46→21:01)
[2016-04-22] MEDS: LACTULOSE SYRUP 20 GM/30 ML CUP PEG SCH (09:00)
[2016-04-22] MEDS: SENNOSIDES SYRUP 8.8 MG/5 ML CUP TUBE SCH (09:00)
[2016-04-22] MEDS: RANITIDINE HCL SYRUP 150 MG/10 ML UDC PO SCH (09:00)
--- NOTE | 2016-04-22 09:02 | HHI.PR ---
Subjective Remarks Stools have been loose today, laxity as were held. His is at bedside and asked me if I can give him medication to boost his immune system because she heard from a doctor in [place] that the antibiotics alone would not help him. Objective Vitals Vital Signs Date Time Temp Pulse Resp B/P Pulse Ox O2 Delivery O2 Flow Rate FiO2 04/22/16 08:02 98 T-piece 28 04/22/16 06:00 99 04/22/16 04:00 94 04/22/16 04:00 98.5 94 25 147/81 96 04/22/16 02:00 78 04/22/16 00:00 82 04/22/16 00:00 98.7 82 21 129/73 95 04/21/16 22:00 78 04/21/16 21:28 95 T-piece 5.00 28 04/21/16 20:00 86 04/21/16 20:00 99.5 86 30 98/60 98 04/21/16 19:00 98 T-Piece 28 04/21/16 18:00 74 04/21/16 16:00 99.1 80 22 120/70 99 04/21/16 16:00 76 04/21/16 14:00 78 04/21/16 12:00 100.1 82 21 125/75 99 04/21/16 12:00 82 04/21/16 10:00 92 I/O 04/21/16 04/21/16 04/21/16 04/22/16 04/22/16 04/22/16 07:00 15:00 23:00 07:00 15:00 23:00 Intake Total 1367 ml 976 ml 751 ml 942 ml Output Total 1250 ml 750 ml 1000 ml 750 ml Balance 117 ml 226 ml -249 ml 192 ml IV Total 522 ml 158 ml 91 ml 81 ml Tube Feeding 385 ml 358 ml 460 ml 461 ml Other 460 ml 460 ml 200 ml 400 ml Output Urine Total 1250 ml 750 ml 1000 ml 750 ml # Bowel Movements 1 1 1 2 Result Diagram: 04/22/1631404/22/16314 Objective Remarks GENERAL: Obese male patient. SKIN: Warm and dry. HEAD: Normocephalic. EYES: No scleral icterus. No injection or drainage. NECK: trach in place. CARDIOVASCULAR: Regular rate and rhythm without murmurs, gallops, or rubs. RESPIRATORY: Breath sounds equal bilaterally. No accessory muscle use. GASTROINTESTINAL: Abdomen soft, non-tender, nondistended. EXTREMITIES: 1+ edema of hands and legs. NEUROLOGICAL: Awake, alert. Does not follow commands. Does not appear to track consistently with eyes. 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 Significant residual cognitive deficit. -Nonverbal at this time; appears to be in a locked in state. Poor half-way prognosis. 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 -Continue Keppra and Coumadin- Palliative care following. Monitor Keppra level periodically. - evaluated by neurology; continue Keppra and coumadin. -cont Paxil as per family request. -Large sacral necrotic mass (6.[address] posterior to sacrum) with destruction of coccyx - stage IV decubitus ulcer versus hematoma vs possible destructive mass - s/p plastics eval (I discussed the patient previously with Dr. Yoder) who has now signed off. He recommended consulting colorectal to see if they would be able to address the area. Dr. Chawla was field applications specialist for colorectal and recommended palliative care consultation, also recommended if bleeding is a concern to consider to consult interventional radiology to see if embolization could provide hemostasis rather than a large surgery, recommended consulting colorectal again if concern of rectal involvement. Dr. Beard/surgery eval'ed -does not recommend diverting colostomy. chances of the wound healing ( whether mass or hematoma) after major surgery or debridement very low given the size of the wound and the patients overall poor prognosis. hospice would be appropriate. Palliative care is following. I have discussed with family. cultures +klebsiella. pt on abx per ID. no anticoagulation due to bleeding from the wound. cont wound care (packing daily). Discussed with family, including patient's cousin who is a physician in [place]. I offered to discuss with plastic surgery getting a tissue diagnosis to rule out cancer if it would put the patient's family at ease, however pursuing aggressive surgery overlooks the patient's overall poor neurologic prognosis. The patient would not be likely to heal from this large wound given his immobility. -Fluid overload/edema with positive fluid balance - start lasix 20 mg IV q 12 hr , with albumin, k-lyte 25 meq PEG BID, monitor I/O and repeat BMP in a.m. Anemia of acute blood loss - secondary to bleeding from the wound. transfuse 2 units pRBCs today, hemoglobin is 9.9 today. Will repeat CBC in the morning. -GI/Nutrition: Previous PEG tube exchanged by GI at bedside 03/30/2016. dietary ff. -Respiratory failure: Secondary to CVA. Patient is status post tracheostomy. Continue pulmonary toilet and neb treatments as needed. Pulmonary following. - Levsin PRN secretions. -Depression: Continue Paxil. -A-fib: continue Lopressor, cardizem. NO coumadin due to significant bleeding from the sacral wound. -UTI: Resolved. Urine culture with Klebsiella on 01/31 and repeat on 03/06 negative. -Coccyx pressure ulcer- cont wound care. -History of Non-Hodgkin lymphoma: s/p brain biopsy on December 13, by Neurosurgery, Dr. Marin, Pathology consistent with acute infarct without evidence of lymphoma -Seen by Oncology, Dr. Whyte, who has signed off for current admission. -DM: Hemoglobin A1c is 7.0. Continue Levemir with sliding scale insulin- monitor and adjust the regimen as needed. - MRSA in the sputum, tracheobronchitis. Chest x-ray 04/05 was clear. completed course of zyvox. mild hypokalemia; replaced. DVT prophylaxis: no coumadin due to wound bleeding. SCDs. Discharge Planning No payor source for intermodal customer service care facility. Patient stable for med surg floor, awaiting bed for days. Problem Qualifiers (1) DM (diabetes mellitus): Qualified Code: E11.9 - Type 2 diabetes mellitus without complications Lena Gonzalez MD Apr 22, 2016 09:02
[2016-04-22] MEDS: ALBUMIN HUMAN 25% 12.5 GM/50 ML BAGP IV SCH ×2 (09:55→21:00)
[2016-04-22] MEDS: FUROSEMIDE 20 MG/2 ML VIAL IV PUSH SCH ×2 (09:56→21:01)
[2016-04-22] MEDS: ARTIFICIAL TEARS OPTH OINT 3.5 APPLIC/3.5 GM TUBO EACH EYE SCH ×2 (09:56→21:00)
[2016-04-22] MEDS: POTASSIUM CHLORIDE 25 MEQ EFFERVESCENT TAB TUBE SCH ×2 (09:56→21:01)
[2016-04-22] MEDS: LACTOBACILLUS ACIDOPHILUS TAB PEG SCH ×2 (09:56→21:00)
[2016-04-22] MEDS: NYSTATIN 100,000 U/GM PWD 15 GM BTL TOPICAL SCH ×2 (09:57→21:00)
[2016-04-22] MEDS: cefTRIAXone INJ 2,000 MG in SODIUM CHLORIDE 0.9% INJ 100 ML IV SCH (11:51)
[2016-04-22] MEDS: ACETAMINOPHEN 650 MG/20.3 ML UDC TUBE PRN (14:42)
--- NOTE | 2016-04-22 16:41 | PD.PLAS.PN ---
Subjective Remarks Patient awake. Non-verbal, no eye tracking. Family in room. Objective Vital Signs Date Time Temp Pulse Resp B/P Pulse Ox O2 Delivery O2 Flow Rate FiO2 04/22/16 08:02 98 T-piece 28 04/22/16 08:00 98.7 98 19 131/74 98 04/22/16 08:00 98 T-Piece 04/22/16 08:00 102 04/22/16 06:00 99 04/22/16 04:00 94 04/22/16 04:00 98.5 94 25 147/81 96 04/22/16 02:00 78 04/22/16 00:00 82 04/22/16 00:00 98.7 82 21 129/73 95 04/21/16 22:00 78 04/21/16 21:28 95 T-piece 5.00 28 04/21/16 20:00 86 04/21/16 20:00 99.5 86 30 98/60 98 04/21/16 19:00 98 T-Piece 04/21/16 18:00 74 I/O 04/21/16 04/21/16 04/21/16 04/22/16 04/22/16 04/22/16 07:00 15:00 23:00 07:00 15:00 23:00 Intake Total 1367 ml 976 ml 751 ml 942 ml Output Total 1250 ml 750 ml 1000 ml 750 ml Balance 117 ml 226 ml -249 ml 192 ml IV Total 522 ml 158 ml 91 ml 81 ml Tube Feeding 385 ml 358 ml 460 ml 461 ml Other 460 ml 460 ml 200 ml 400 ml Output Urine Total 1250 ml 750 ml 1000 ml 750 ml # Bowel Movements 1 1 1 2 Laboratory Tests Test 04/22/16 03:15 White Blood Count 6.3 Red Blood Count 3.85 Hemoglobin 9.9 Hematocrit 30.0 Mean Corpuscular Volume 78.0 Mean Corpuscular Hemoglobin 25.8 Mean Corpuscular Hemoglobin 33.1 Concent Red Cell Distribution Width 21.4 Platelet Count 269 Mean Platelet Volume 7.0 Neutrophils (%) (Auto) 78.0 Lymphocytes (%) (Auto) 13.0 Monocytes (%) (Auto) 5.9 Eosinophils (%) (Auto) 2.4 Basophils (%) (Auto) 0.7 Neutrophils # (Auto) 4.9 Lymphocytes # (Auto) 0.8 Monocytes # (Auto) 0.4 Eosinophils # (Auto) 0.2 Basophils # (Auto) 0.0 CBC Comment DIFF FINAL Differential Comment Sodium Level 139 Potassium Level 3.3 Chloride Level 103 Carbon Dioxide Level 27.8 Anion Gap 8 Blood Urea Nitrogen 8 Creatinine 0.45 Estimat Glomerular Filtration 192 Rate Random Glucose 130 Calcium Level 8.3 Result Diagram: 04/22/1631404/22/16314 Exam Findings Seen with nurse present. Open wound sacrum-4cm X 4cm. Undermining for 10cm at 6-11 O'clock. Dark/ bloody drainage with clots. No cellulitis, no odor. Wound packed with 2 full clings and pressure dressing with ABD and tape. Assessment and Plan Assessment and Plan Sacral wound. Seen by previous plastic surgeon, very detailed consult in chart. Difficult to examine wound because of drainage, but doubtful wounds needs debridement. Wound packed with pressure dressing. Ordered PT/PTT, and CBC. Continue to monitor for drainage. Discussed with attending, and she stated that bloody drainage ongoing problem. Previous plastic surgery consult discussed drainage 04/13/16 as well. Last INR 1.5 Ramiro Valderrama MD Apr 22, 2016 16:41
--- NOTE | 2016-04-22 16:54 | HHI.HCPN ---
Reason for visit a. To assist with evaluation and management of symptoms including: dyspnea, encephalopathy, depression b. To assist medical decision maker(s) with: better understanding of current medical conditions; weighing benefits/burdens of medical treatment options; making medical treatment decisions. Subjective/Interval History Pt seen today to follow up with family-- received call from daughter Leanne today before my arrival to the unit to see patient. Discussed with her patient ongoing wound, prior consulted to evaluated patient for wounds, current treatments in place as well as resuscitation status. She indicates she and her siblings plus the patient's significant other have agreed that they would want alternative CODE STATUS, no cardiac resuscitation however would agree to mechanical vent if necessary. Advised that I would need majority of the siblings so if Leanne's sister or brother could contact me via phone or email to confirm that this is their wishes as well I will be able to change CODE STATUS. She tells me that the family has discussed patient condition further following our meeting last week and this is the agreement they came to. She tells me they have ongoing concerns regarding the severe wound, and wonder if there is more localized weaning therapy that can be done as they are concerned that if the necrotic areas are not debrided then the wound will continue to worsen. I did gently explore with her that due to underlying condition(s) causing the wound, and severity of wound that even if the patient were deemed a surgical candidate that this wound would not be that we would be able to eradicate. Family would like for plastic surgery to reevaluate patient to see if there is any other localizing wound therapy that can stop wound from worsening and leading to further clinical deterioration. Discuss all with medical attending Dr. Gonzalez. She will reconsult plastic surgery. Patient remains in ICU, awaiting transfer to medical floor. VS stable. Labs yesterday stable. No other recent diagnostics. Nsg reports they have seen some consistent communication efforts with eye motions today. Patient examined in room with mother, several other family members at bedside. He does repeatedly gaze upward with my requests to look up --however when I ask other yes/no questions he opens eyes widely though I'm not able to discern a clear response. He does not follow other commands to stick out his tongue, move head side to side etc. he does track examiner from one side of the bed to the other. No apparent discomfort or distress during my exam though his mother endorses that he has had a headache which she recently received Tylenol for. Very brief in general update to family members at bedside. Family members have questions about diverging colostomy, what other surgeries can be done for patient, as well as if any drugs can be given to stimulate and improve his immune system. They asked if the wound was affecting bone marrow. They asked what interventions plastic surgery was planning. I provided them with a brief basic overview and advised that more detailed information would need to be obtained from daughter Leanne or significant other Leanne, as medical team has been instructed to give limited information to extended family. Nursing advises plastic surgery has been in to reevaluate patient during wound evaluation and dressing change patient with more significant amounts of red drainage, nursing keeping packing in place however she notes increased drainage throughout the afternoon. CBC pending. Not clear whether plastic surgery will offer additional interventions at this time. Met with family at length, approx 45 min. discussed at length with primary nurse , medical attending Dr. Gonzalez. History brought forward from initial consult by Rita MOCTEZUMA on 01/10/16: This 59-year-old patient was admitted on 12/21/15 via the ED for facial drooping. ED physician notes that patient and patients are poor historians, EMS reported the could not provide good timelines to them. Patient also reported headache, difficulty ambulating. He had known history of recent findings of mass in the brain. During ED course had deterioration of clinical condition and able to protect his airway, unable to follow commands patient was intubated and CT brain obtained. He was admitted for further evaluation and management to the ICU. Shelter Advocate was consulted and following patient. Pathology on recent brain biopsy (12/13) still pending. CLINICAL/HOSPITAL COURSE: * CT brain= no focal or acute intracranial hemorrhage. New area decreased density in left occipital lobe suggestive of recent nonhemorrhagic infarct, decreased density in previously noted right occipital lobe has increased in size * Brain MRI = new area of restricted diffusion within left occipital lobe suggesting acute infarct. Interval enlargement of the area of restricted diffusion within right occipital lobe suggesting probable extension of right occipital and started on. Underlying enhancement of right occipital lobe is slightly worse than the previous exam and nonspecific. Biopsy has been performed and results are pending. Tiny focal area of restricted diffusion within right cerebellar hemisphere consistent with probable acute/subacute lacunar infarct. Signal abnormality in the SWI sequence within the right occipital lobe suggesting some hemorrhage in biopsy bed. No midline shift or extra-axial fluid collections. * CXR= no acute cardiopulmonary disease * -Neurology consulted, ordered MRA to look for vertebrobasilar stenosis, echo done last admission notes normal EF with normal valves and normal left atrial size. EEG also ordered. MR venogram ordered. EEG= abnormal study consistent with her encephalopathy. MRV indicated basilar occlusion; neurology notes discussion with family regarding chemical code only, also notes discussion regarding risks associated with the anticoagulates, was discussed with radiologist/INR recommended not helpful to extract basilar clot as this could result in patient's . It was felt the colin was infarcted. Further neurology notes "he could be locked in", is acting as if colin is infarcted. * Oncology known to patient also consulted for non-Hodgkin's lymphoma: Dr Whyte documents that there was no evidence of residual or recurrent disease on CT scans of chest, abdomen, pelvis done in October and November of this year. Pathology was still pending, had been sent to [facility] for second opinion. No acute oncology interventions recommended at that time, will follow. * 12/23 - 12/25 febrile. CPAP trials. Remains on vent off of sedation. Withdrawing to pain. Repeat brain MRI= evolving brainstem stroke. Neurology notes extensive discussion with family, notes discussion the patient is locked in but fully aware, family would like to see help patient does over the next 3 months. 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 Biopsy brain lesion appears consistent with acute infarct no lymphoma. Family desires ongoing aggressive measures, will proceed with tracheostomy. Sputum culture positive sensitive Klebsiella. * 01/01 tracheostomy, PEG tube placement * 01/04 trach collar trials, alternating with T piece. Low-grade fever 100.5. CXR = mild bibasilar atelectasis. Neuro: Spontaneously opening eyes, looking up / down, directionally to commands. * 01/07 still "locked in " , transferred off ICU to regular floor. * 01/08 pulmonology consulted-not CXR clear no evidence of pulmonary infection. He may have some underlying COPD recommends continued aerosol treatments. Further notes long discussion with family at bedside regarding tracheostomy, long-term use of trach until patient able to protect his airway, no further recommendations. Palliative care consulted to assist with clarification of goals of treatment. Advance Directives Living Will: Never completed Health Care Surrogate: Never completed Objective Vital Signs Date Time Temp Pulse Resp B/P Pulse Ox O2 Delivery O2 Flow Rate FiO2 04/22/16 08:02 98 T-piece 28 04/22/16 08:00 98.7 98 19 131/74 98 04/22/16 08:00 98 T-Piece 28 04/22/16 08:00 102 04/22/16 06:00 99 04/22/16 04:00 94 04/22/16 04:00 98.5 94 25 147/81 96 04/22/16 02:00 78 04/22/16 00:00 82 04/22/16 00:00 98.7 82 21 129/73 95 04/21/16 22:00 78 04/21/16 21:28 95 T-piece 5.00 28 04/21/16 20:00 86 04/21/16 20:00 99.5 86 30 98/60 98 04/21/16 19:00 98 T-Piece 28 04/21/16 18:00 74 Intake & Output 04/22/16 04/22/16 06:59 18:59 Intake Total 1693 ml Output Total 1750 ml Balance -57 ml IV Total 172 ml Tube Feeding 921 ml Other 600 ml Output Urine Total 1750 ml # Bowel Movements 3 Physical Exam CONSTITUTIONAL/GENERAL: This is an adequately nourished patient, eyes open tracks examiner TUBES/LINES/DRAINS: Arevalo catheter, PEG tube, tracheostomy, SCDs, heel protection boots, on s/sacrum with significant ongoing red oozing though I did not visualize. Skin temperature appropriate. Not diaphoretic. CARDIOVASCULAR: Regular rate and rhythm without murmurs.Peripheral pulses symmetric. Trace peripheral edema upper extremities. RESPIRATORY/CHEST: Tracheostomy midline, no symptoms of problems around site. Symmetric, unlabored respirations. + moist cough. T piece, 28% FiO2. Occasional faint scattered rhonchi. Breath sounds equal bilaterally. GASTROINTESTINAL: Abdomen soft, no apparent tenderness, nondistended. No palpable masses. Bowel sounds normoactive. tube feed infusing via PEG. MUSCULOSKELETAL: Extremities without clubbing, cyanosis. Trace edema upper extremities No joint effusion noted. No mottling or clubbing.+ Muscle atrophy to all 4 extremities. NEUROLOGICAL: Eyes open. Tracks examiner from left to right. Does repeatedly gaze upward when requested to do so however when asked other yes and no questions which he is reported to respond with blinking or looking up he does not do so consistently, just opens his eyes very widely. Does blink though not clear is to commands. No movement of extremities. Does not follow commands to stick out tongue. PSYCHIATRIC: Difficult to fully assess due to clinical condition. no evident anxiety . Diagnostic Tests Laboratory Laboratory Tests Test 04/20/16 04/20/16 04/21/16 04/22/16 03:35 14:06 03:34 03:15 White Blood Count 5.8 TH/MM3 7.1 TH/MM3 6.3 TH/MM3 (4.0-11.0) (4.0-11.0) (4.0-11.0) Red Blood Count 3.04 MIL/MM3 3.93 MIL/MM3 3.85 MIL/MM3 (4.50-5.90) (4.50-5.90) (4.50-5.90) Hemoglobin 7.4 GM/DL 10.3 GM/DL 9.9 GM/DL (13.0-17.0) (13.0-17.0) (13.0-17.0) Hematocrit 23.7 % 31.2 % 30.0 % (39.0-51.0) (39.0-51.0) (39.0-51.0) Mean Corpuscular Volume 77.8 FL 79.4 FL 78.0 FL (80.0-100.0) (80.0-100.0) (80.0-100.0) Mean Corpuscular Hemoglobin 24.3 PG 26.2 PG 25.8 PG (27.0-34.0) (27.0-34.0) (27.0-34.0) Mean Corpuscular Hemoglobin 31.2 % 33.0 % 33.1 % Concent (32.0-36.0) (32.0-36.0) (32.0-36.0) Red Cell Distribution Width 21.0 % 21.2 % 21.4 % (11.6-17.2) (11.6-17.2) (11.6-17.2) Platelet Count 289 TH/MM3 278 TH/MM3 269 TH/MM3 (150-450) (150-450) (150-450) Mean Platelet Volume 7.0 FL 7.1 FL 7.0 FL (7.0-11.0) (7.0-11.0) (7.0-11.0) Sodium Level 139 MEQ/L 139 MEQ/L 139 MEQ/L (136-145) (136-145) (136-145) Potassium Level 3.3 MEQ/L 3.5 MEQ/L 3.3 MEQ/L (3.5-5.1) (3.5-5.1) (3.5-5.1) Chloride Level 107 MEQ/L 104 MEQ/L 103 MEQ/L (98-107) (98-107) (98-107) Carbon Dioxide Level 23.1 MEQ/L 25.1 MEQ/L 27.8 MEQ/L (21.0-32.0) (21.0-32.0) (21.0-32.0) Anion Gap 9 MEQ/L (5-15) 10 MEQ/L (5-15) 8 MEQ/L (5-15) Blood Urea Nitrogen 6 MG/DL (7-18) 6 MG/DL (7-18) 8 MG/DL (7-18) Creatinine 0.46 MG/DL 0.48 MG/DL 0.45 MG/DL (0.60-1.30) (0.60-1.30) (0.60-1.30) Estimat Glomerular Filtration 187 ML/MIN 178 ML/MIN 192 ML/MIN Rate (>89) (>89) (>89) Random Glucose 126 MG/DL 129 MG/DL 130 MG/DL (74-106) (74-106) (74-106) Calcium Level 7.8 MG/DL 8.3 MG/DL 8.3 MG/DL (8.5-10.1) (8.5-10.1) (8.5-10.1) Blood Type AB POSITIVE Antibody Screen NEGATIVE Crossmatch Leukocyte-Reduced Red Blood Cells Blood Bank Comment Neutrophils (%) (Auto) 78.8 % 78.0 % (16.0-70.0) (16.0-70.0) Lymphocytes (%) (Auto) 12.3 % 13.0 % (9.0-44.0) (9.0-44.0) Monocytes (%) (Auto) 5.4 % (0.0-8.0) 5.9 % (0.0-8.0) Eosinophils (%) (Auto) 2.6 % (0.0-4.0) 2.4 % (0.0-4.0) Basophils (%) (Auto) 0.9 % (0.0-2.0) 0.7 % (0.0-2.0) Neutrophils # (Auto) 5.6 TH/MM3 4.9 TH/MM3 (1.8-7.7) (1.8-7.7) Lymphocytes # (Auto) 0.9 TH/MM3 0.8 TH/MM3 (1.0-4.8) (1.0-4.8) Monocytes # (Auto) 0.4 TH/MM3 0.4 TH/MM3 (0-0.9) (0-0.9) Eosinophils # (Auto) 0.2 TH/MM3 0.2 TH/MM3 (0-0.4) (0-0.4) Basophils # (Auto) 0.1 TH/MM3 0.0 TH/MM3 (0-0.2) (0-0.2) CBC Comment DIFF FINAL DIFF FINAL Differential Comment Result Diagram: 04/22/165 04/22/16 0315 Imaging Last Impressions Chest X-Ray 04/14/16 0000 Signed Impressions: Service Date/Time: Thursday, April 14, 2016 17:24 - CONCLUSION: 1. Minimal basilar opacity most characteristic of atelectasis and scarring. No effusion or pneumothorax. Durga Dotson MD Abdomen/Pelvis CT 04/12/16 0000 Signed Impressions: Service Date/Time: Tuesday, April 12, 2016 20:52 - CONCLUSION: 1. 6.4 cm necrotic mass or abscess in the soft tissues posteriorly just below the sacrum associated with some bony destructive change of the lower most sacrum and coccyx with inflammatory changes extending into the ischiorectal fossa and into the presacral retroperitoneum predominantly on the left side. There is associated fairly marked mural thickening of the anal verge and rectum. 2. There is gastrostomy and Arevalo catheter present. Stable abdominal aortic aneurysm. Durga Dotson MD Head Magnetic Resonance Angiography 03/05/16 0000 Signed Impressions: Service Date/Time: Saturday, March 05, 2016 09:26 - CONCLUSION: Persistent high-grade subtotal occlusive stenotic lesions in the distal right vertebral artery and proximal basilar artery with significant improvement in flow and recanalization following initial presentation of thrombosis. Stable interstitial circulation without significant stenosis. 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 There is decreasing restricted diffusion and increasing loss of volume characteristic of a subacute to chronic infarct. No evidence of acute infarct, acute hemorrhage mass or edema. Ernesto Kulkarni MD Head CT 01/16/16 0000 Signed Impressions: Service Date/Time: Saturday, January 16, 2016 10:51 - CONCLUSION: No extensive low density in the brainstem colin more prominent in the right the left extending into the right middle cerebellar peduncle consistent with brainstem infarct nonhemorrhagic acute Wellington West MD Abdomen X-Ray 01/14/16 0000 Signed Impressions: Service Date/Time: Thursday, January 14, 2016 10:19 - CONCLUSION: Moderate stool; otherwise, negative. 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 No evidence of carotid stenosis. Glen Zamora MD Head/Brain Mag Res Venography 12/22/15 0000 Signed Impressions: Service Date/Time: Tuesday, December 22, 2015 09:22 - CONCLUSION: Normal MRV. Jonel Jones Jr., MD Procedures * 01/01 tracheostomy, PEG tube placement . 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; EEG indicates encephalopathy, neuro following patient felt to be in a "locked-in "state (2) Non-Hodgkin lymphoma Comment: -In remission status post chemotherapy completed May 2015 (3) Acute respiratory failure Comment: Pulmonology following, medical management (4) A-fib (5) Status post stereotactic brain biopsy (6) Brain lesion Comment: Status post biopsy November 2015; pathology consistent with acute infarct without evidence of lymphoma (7) DM (diabetes mellitus) Symptom Scale: (1) Dysphagia Comment: Status post significant CVA, has had PEG tube placed- no improvement per ongoing ST eval (2) Dyspnea Comment: Respiratory failure secondary to CVA, status post tracheostomy, pulmonary following (3) Encephalopathy Comment: Significant CVA, "locked-in" state -- though pt not noted with consistent attempts to communicate. ? vegetative (4) Malnutrition Comment: Status post PEG tube placement. Episode of emesis yesterday, currently tolerating tube feeding without issue (5) Depression Comment: At risk for related to "locked in status", communication difficulties , situational, but would likely benefit from anti-depressant Pertinent Non-Medical Issues * Psychosocial:Mr. Flores is originally from [place]. He moved to the around 35 years ago, first to [place] and later to [place]. He is not legally but remains with his ex-, Leanne. They have been together for 31+ years and have three children together: Leanne, Gerald, and Ginny. Gerald is currently in [facility] for work. Mr. Flores has 2 brothers and 7 sisters. His father is of old age. His mother is alive and was living with the patient. Greatly enjoys his family. Retired. 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 * Spiritual: * Legal:Patient due to clinical condition is currently unable to participate in medical decision making. Not clear if or when he will regain this ability. Family does not believe he has completed advance directives. per [place] Statutes, medical proxy decision making would fall to the majority of adult children, as Mr. Flores is not legally . * Ethical issues impacting care: Important Contacts Leanne, daughter: [phone] Ginny, daughter: [phone] Gerald Flores, son: currently in [facility] for work but has communication with his siblings. Leanne, ex-: [phone] Prognosis This patient has had 20 day hospital course thus far, admitted on 62 for a large brainstem infarct, bilateral occipital infarcts. He has subsequently had ongoing encephalopathy and severe communication limitations, neurology feels he is in a "locked-in "state. He has suffered from respiratory failure likely secondary to significant CVA. Appears he should be able to survive this acute hospitalization, however not clear when or if he will regain ability to communicate, based on current assessments patient will require long-term care placement. He will remain high risk for potential competition/setbacks due to immobile status including infections, DVT etc. . Code Status: Full Code Plan * GOALS: Very aggressive. See family conference component on initial consult for additional detail. Meeting In summary: Initially they had many questions regarding admission and biopsy which occurred in November, they ask about differentials and decision making leading to the biopsy, and have many concerns regarding that clinical course--advised that I could not speak to any of those questions or processes as I was not involved in his care and decision making at that time, recommend them to direct those specific questions to those initial providers which provided those services. Otherwise review of conditions, goals as detailed in "issues discussed". Family expresses that Mr. Flores did remarkably well following his chemotherapy for lymphoma just last year, and that he had been doing fine until recent issue in November. They endorsed that he is a fighter, that he is a very optimistic person, and that they are certain he is "in there "and would want to continue fighting for whatever recovery he might have." They have many questions regarding rehabilitation services and placement as well as financial coverage for these services, advised that case management could assist them with the various applications which already in process, but that any placement would depend on funding, or alternatively [facility]leman placement which is up to any individual institution. They would like to maximize PT/OT/ST ongoing while here in the hospital. They also request courtesy consult of to follow him for pulmonary as he is known to the family through their mosque. * 04/18/16-extensive meeting with family today, see subjective for additional information. Family is beginning to consider DNR status. Family is beginning to ask questions regarding comfort focused care. They do still have questions regarding current wound status and possible surgical interventions for further evaluation. They also request scheduled medication for pain, prn Ativan for anxiety. Discussed all with medical attending, primary nurse. * 04/22/16--phone call from daughter Leanne, provided general update and discussion of current conditions and treatments, patient seen and examined following this phone call. Family would like to change CODE STATUS to alternative code, intubation only, awaiting contact from other siblings to confirm this. Family request reevaluation of wound for possible intervention other than ongoing wound care--plastic surgery consultation pending. All was discussed with medical attending. * CODE STATUSfull code * Symptoms: == Dysphagia--Status post significant CVA, has had PEG tube placed; no improvement per ST following --trial with a passy mikey valve, patient with no response or attempt to verbalize--ST signed off == Dyspnea --Respiratory failure secondary to CVA, status post tracheostomy, pulmonary following; currently no apparent distress/ O2 sats / O2 requirements stable--O2 sat stable == Encephalopathy--Significant CVA, "locked-in" state; follow-up MRI with no significant changes; family endorses patient continues to have limited communication via blinks and eye motion-- does not consistently attempt to communicate w therapies, appears vegetative == Malnutrition--Status post PEG tube placement. Episode of emesis prompting transfer to ICU > a week ago, currently tolerating TF; having bowel movements no further episodes of vomiting == depression/anxiety -- At risk for related to "locked in status", communication difficulties, situational, but would likely benefit from anti- depressant. Family reports tearful at times when they talk to him. prev. started on celexa, then d/c per family request. On Paxil per family request. previously tearful at times during exam. No distress observed or reported today , ? Pain versus emotional distress. Will cont to evaluate. == Pain: Tearful,? At times blinks/looks up for yes to pain per family, nursing // nursing to administer PRN Lamont. Potential sources would include large sacral wound, bedbound status. Nursing has expressed that they use PRN sparingly as family has concerns that too much will contribute to his lethargy/ decreased alertness. Family last week requested [id number] medication for comfort, this was added, patient appearing comfortable. Additionally prn Ativan added for anxiety that may be associated with pain. * Palliative care will continue to follow during hospital course as condition evolves, to assist patient/decision-maker with understanding of medical conditions, weighing benefits/burdens of treatment options, for clarification of goals of treatment. Additionally will assist with any symptoms of palliative concern Time Spent Total Floor Time (mins): 30 >50% Counseling/Coord of Care: Yes (discussed with medical attending, primary nurse) Attestation To help prompt me to consider important information that might be impacting today's encounter and assessment, information from prior notes written by myself or my colleagues may have been "brought forward" into today's note. My signature on this note, however, is an attestation that I personally performed the exam, history, and/or decision-making noted today, and, unless otherwise indicated, the interactions with patient, family, and staff as well as the review of records all occurred today. I also attest that the listed assessment and stated plan reflect my best clinical judgment today based on the combination of historical information, prior notes, and today's exam/ interactions. When time spent is documented, it refers only to time spent today by the signer, or if indicated, combined time spent today by collaborating physician/nurse practitioner. Tiara Colin Apr 22, 2016 16:54
[2016-04-22 17:38] LABS: AUTOMATED NEUTROPHIL # 4.9 TH/MM3 (1.8-7.7); BASOPHIL % 0.7 % (0.0-2.0); EOSINOPHIL # 0.1 TH/MM3 (0-0.4); HEMO FLAGS DIFF FINAL; LYMPH % 14.2 % (9.0-44.0); LYMPHOCYTE # 0.9 TH/MM3 (1.0-4.8); MEAN CELL VOLUME 78.7 FL (80.0-100.0); MEAN CORPUSCULAR HEMOGLOBIN 25.2 PG (27.0-34.0); NEUT % 77.1 % (16.0-70.0); PLATELET COUNT 283 TH/MM3 (150-450); RED BLOOD COUNT 3.94 MIL/MM3 (4.50-5.90); RED CELL DISTRIBUTION WIDTH 21.6 % (11.6-17.2); WHITE BLOOD COUNT 6.3 TH/MM3 (4.0-11.0)
[2016-04-22 17:47] LABS: APTT (PATIENT) 29.4 SEC (22.6-28.8); INTERNATIONAL NORMALIZED RATIO 1.1 RATIO; PROTHROMBIN TIME - PATIENT 11.5 SEC (9.8-11.4)
[2016-04-22] MEDS: PARoxetine HCL SUSP 20 MG/10 ML UDC PEG SCH (18:25)
[2016-04-22] MEDS: INSULIN DETEMIR 100 UNITS/ML VIAL SQ SCH (21:01)
[2016-04-23] VITALS (11 sets, daily range): BP systolic 105–135; BP diastolic 63–81; PULSE 85–104; RESP 20–24; TEMP 96.6–100; O2SAT 95–99
[2016-04-23] MEDS: FREE WATER TUBE SCH ×5 (04:00→20:00)
[2016-04-23] MEDS: HYOSCYAMINE 0.125 MG TAB G-TUBE PRN ×3 (04:59→18:24)
[2016-04-23] MEDS: ACETAMINOPHEN/HYDROcodone 325 MG/5 MG TAB PEG SCH ×3 (05:00→16:44)
[2016-04-23] MEDS: ACETIC ACID 0.25% SOLN 1000 ML IRR BTL IRRIGATION SCH ×2 (05:08→13:57)
[2016-04-23 06:13] LABS: AUTOMATED NEUTROPHIL # 5.7 TH/MM3 (1.8-7.7); BASOPHIL % 0.5 % (0.0-2.0); EOSINOPHIL # 0.1 TH/MM3 (0-0.4); EOSINOPHIL % 1.4 % (0.0-4.0); HEMATOCRIT 29.5 % (39.0-51.0); HEMO FLAGS DIFF FINAL; LYMPH % 12.5 % (9.0-44.0); LYMPHOCYTE # 0.9 TH/MM3 (1.0-4.8); MEAN CELL VOLUME 78.8 FL (80.0-100.0); MEAN CORPUSCULAR HEMOGLOBIN 25.7 PG (27.0-34.0); MEAN CORPUSCULAR HGB CONC 32.6 % (32.0-36.0); MONO % 6.8 % (0.0-8.0); NEUT % 78.8 % (16.0-70.0); PLATELET COUNT 309 TH/MM3 (150-450); RED BLOOD COUNT 3.74 MIL/MM3 (4.50-5.90); RED CELL DISTRIBUTION WIDTH 21.8 % (11.6-17.2); WHITE BLOOD COUNT 7.2 TH/MM3 (4.0-11.0)
[2016-04-23] MEDS: INSULIN ASPART SUPPLEMENTAL SCALE SQ SCH ×4 (06:16→21:26)
[2016-04-23 06:42] LABS: BICARBONATE 28.3 MEQ/L (21.0-32.0); POTASSIUM 3.9 MEQ/L (3.5-5.1)
[2016-04-23] MEDS: levETIRAcetam 500 MG/5 ML UDC TUBE SCH ×2 (08:34→20:51)
[2016-04-23] MEDS: FUROSEMIDE 20 MG/2 ML VIAL IV PUSH SCH ×2 (08:34→20:51)
[2016-04-23] MEDS: SENNOSIDES SYRUP 8.8 MG/5 ML CUP TUBE SCH (08:34)
[2016-04-23] MEDS: METOPROLOL TARTRATE 50 MG TAB PO SCH ×2 (08:34→20:51)
[2016-04-23] MEDS: LACTOBACILLUS ACIDOPHILUS TAB PEG SCH ×2 (08:35→20:50)
[2016-04-23] MEDS: LACTULOSE SYRUP 20 GM/30 ML CUP PEG SCH (08:35)
[2016-04-23] MEDS: DILTIAZEM HCL 60 MG TAB PO SCH ×4 (08:35→20:51)
[2016-04-23] MEDS: ALBUMIN HUMAN 25% 12.5 GM/50 ML BAGP IV SCH ×2 (08:35→20:47)
[2016-04-23] MEDS: RANITIDINE HCL SYRUP 150 MG/10 ML UDC PO SCH (08:35)
[2016-04-23] MEDS: NYSTATIN 100,000 U/GM PWD 15 GM BTL TOPICAL SCH (08:37)
[2016-04-23] MEDS: POTASSIUM CHLORIDE 25 MEQ EFFERVESCENT TAB TUBE SCH ×2 (09:23→20:51)
[2016-04-23] MEDS: ARTIFICIAL TEARS OPTH OINT 3.5 APPLIC/3.5 GM TUBO EACH EYE SCH (09:23)
--- NOTE | 2016-04-23 10:07 | HHI.PR ---
Subjective Remarks seen with family- mother at bedside d/w her - no change in current status tolerating tube feedings Objective Vitals Vital Signs Date Time Temp Pulse Resp B/P Pulse Ox O2 Delivery O2 Flow Rate FiO2 04/23/16 08:30 98 T-Piece 5.00 28 04/23/16 08:06 96.6 98 24 120/70 97 04/23/16 04:00 98.2 104 20 133/81 99 04/23/16 00:47 97 T-piece 6.00 28 04/23/16 00:00 97.7 85 20 105/63 98 04/22/16 23:45 T-Piece 5.00 28 04/22/16 23:45 82 04/22/16 21:55 95 T-piece 28 04/22/16 20:00 97.9 88 23 114/67 95 04/22/16 20:00 88 04/22/16 19:00 96 T-Piece 28 04/22/16 18:00 92 04/22/16 16:00 99.1 90 13 141/94 98 04/22/16 16:00 74 04/22/16 14:00 82 04/22/16 12:00 74 04/22/16 12:00 99.1 82 22 116/72 98 I/O 04/22/16 04/22/16 04/22/16 04/23/16 04/23/16 04/23/16 06:59 14:59 22:59 06:59 14:59 22:59 Intake Total 942 ml 1049 ml 911 ml Output Total 750 ml 2000 ml 1275 ml 200 ml 600 ml Balance 192 ml -951 ml -364 ml -200 ml -600 ml IV Total 81 ml 233 ml 75 ml Tube Feeding 461 ml 356 ml 376 ml Tube Irrigant 60 ml 60 ml Other 400 ml 400 ml 400 ml Output Urine Total 750 ml 2000 ml 1275 ml 200 ml 600 ml # Bowel Movements 2 0 0 Result Diagram: 04/23/1651904/23/16519 Imaging Last Impressions Chest X-Ray 04/14/16 0000 Signed Impressions: Service Date/Time: Thursday, April 14, 2016 17:24 - CONCLUSION: 1. Minimal basilar opacity most characteristic of atelectasis and scarring. No effusion or pneumothorax. Durga Dotson MD Abdomen/Pelvis CT 04/12/16 0000 Signed Impressions: Service Date/Time: Tuesday, April 12, 2016 20:52 - CONCLUSION: 1. 6.4 cm necrotic mass or abscess in the soft tissues posteriorly just below the sacrum associated with some bony destructive change of the lower most sacrum and coccyx with inflammatory changes extending into the ischiorectal fossa and into the presacral retroperitoneum predominantly on the left side. There is associated fairly marked mural thickening of the anal verge and rectum. 2. There is gastrostomy and Lopez catheter present. Stable abdominal aortic aneurysm. Durga Dotson MD Head Magnetic Resonance Angiography 03/05/16 0000 Signed Impressions: Service Date/Time: Saturday, March 05, 2016 09:26 - CONCLUSION: Persistent high-grade subtotal occlusive stenotic lesions in the distal right vertebral artery and proximal basilar artery with significant improvement in flow and recanalization following initial presentation of thrombosis. Stable interstitial circulation without significant stenosis. 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 There is decreasing restricted diffusion and increasing loss of volume characteristic of a subacute to chronic infarct. No evidence of acute infarct, acute hemorrhage mass or edema. Ernesto Kulkarni MD Head CT 01/16/16 0000 Signed Impressions: Service Date/Time: Saturday, January 16, 2016 10:51 - CONCLUSION: No extensive low density in the brainstem colin more prominent in the right the left extending into the right middle cerebellar peduncle consistent with brainstem infarct nonhemorrhagic acute Wellington West MD Abdomen X-Ray 01/14/16 0000 Signed Impressions: Service Date/Time: Thursday, January 14, 2016 10:19 - CONCLUSION: Moderate stool; otherwise, negative. 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 No evidence of carotid stenosis. Glen Zamora MD Head/Brain Mag Res Venography 12/22/15 0000 Signed Impressions: Service Date/Time: Tuesday, December 22, 2015 09:22 - CONCLUSION: Normal MRV. Jonel Jones Jr., MD Objective Remarks eyes open, no tracking, no purposeful movements pupils equal, anicteric mild facial asymmetry no gag reflex neck supple no rigidity lungs- no rales or wheezes regular rhythm abdomen- soft, good bowel sounds, PEG site- no signs of erythema coccyx area- deep open wound- quarter size- wound packed with 3 riolls of Kerlix- soaked with blood on removal lopez in place, no pedal edema extremities- generalized swelling Procedures 01/02/16 PEG placement 01/02/16 tracheostomy Date of Insertion: Mar 07, 2016 A/P Problem List: (1) CVA (cerebral vascular accident) ICD Code: I63.9 Status: Acute (2) A-fib ICD Code: I48.91 Status: Chronic (3) DM (diabetes mellitus) ICD Code: E11.9 Status: Chronic Assessment and Plan 60-year-old male with: -CVA (cerebral vascular accident): 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 Significant residual cognitive deficit. -Nonverbal at this time; appears to be in a locked in state. 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 -Continue Keppra and Coumadin- Palliative care following. Monitor Keppra level periodically. - evaluated by neurology; continue Keppra and coumadin. -cont Paxil as per family request. -Large sacral necrotic mass (6.[address] posterior to sacrum) with destruction of coccyx - stage IV decubitus ulcer versus hematoma vs possible destructive mass - s/p plastics eval (I discussed the patient previously with Dr. Yoder) who has now signed off. He recommended consulting colorectal to see if they would be able to address the area. - Dr. Chawla was insurance salesperson for colorectal and recommended palliative care consultation also recommended if bleeding is a concern to consider to consult interventional radiology to see if embolization could provide hemostasis rather than a large surgery - will get CRS consult - for evaluation - and recommendation ? if will benefit from diverting colostomy - in am - seen by Dr. Mars- vascular surgery - - the wound and the patients overall poor prognosis. hospice would be appropriate. Palliative care is following. cultures +klebsiella. pt on abx per ID. no anticoagulation due to bleeding from the wound. cont wound care ( packing daily). Discussed with family, including patient's cousin who is a physician in [place]. Dr. Gonzalez offered to discuss with plastic surgery getting a tissue diagnosis to rule out cancer if it would put the patient's family at ease, however pursuing aggressive surgery overlooks the patient's overall poor neurologic prognosis. The patient would not be likely to heal from this large wound given his immobility. - monitor CBC - d/w family at bedside- wants to pursue aggressive- they are not ready for hospice at this point - Palliative care is meeting with them again today - will confirm- code status -Fluid overload/edema with positive fluid balance - start lasix 20 mg IV q 12 hr , with albumin, k-lyte 25 meq PEG BID, monitor I/O . ff BMP Anemia of acute blood loss - secondary to bleeding from the wound. transfuse 2 units pRBCs today, hemoglobin is 9.9 today. Will repeat CBC in the morning. -GI/Nutrition: Previous PEG tube exchanged by GI at bedside 03/30/2016. dietary ff. -Respiratory failure: Secondary to CVA. Patient is status post tracheostomy. Continue pulmonary toilet and neb treatments as needed. Pulmonary following. - Levsin PRN secretions. -Depression: Continue Paxil. -A-fib: continue Lopressor, cardizem. NO coumadin due to significant bleeding from the sacral wound. -UTI: Resolved. Urine culture with Klebsiella on 01/31 and repeat on 03/06 negative. -Coccyx pressure ulcer- cont wound care. -History of Non-Hodgkin lymphoma: s/p brain biopsy on December 13, by Neurosurgery, Dr. Marin, Pathology consistent with acute infarct without evidence of lymphoma -Seen by Oncology, Dr. Whyte, who has signed off for current admission. -DM: Hemoglobin A1c is 7.0. Continue Levemir with sliding scale insulin- monitor and adjust the regimen as needed. - MRSA in the sputum, tracheobronchitis. Chest x-ray 04/05 was clear. completed course of zyvox. mild hypokalemia; replaced. DVT prophylaxis: no coumadin due to wound bleeding. SCDs. Problem Qualifiers (1) DM (diabetes mellitus): Qualified Code: E11.9 - Type 2 diabetes mellitus without complications Soco Pickett MD Apr 23, 2016 10:07
[2016-04-23] MEDS: cefTRIAXone INJ 2,000 MG in SODIUM CHLORIDE 0.9% INJ 100 ML IV SCH (11:32)
--- NOTE | 2016-04-23 13:47 | HHI.HCPN ---
Received follow up email communication from son Gerald Flores, expressing agreement with family to enact alternative code for Mr. Jessenia Flores (majority of 2 adult children are legal decision makers) per my discussion w / Dtr Leanne yesterday other siblings were to contact me regarding code status so I may change per their request. Now have 2/3 siblings in communication RE, they have requested partial DNR status-- electing NO CARDIAC RESUSCITATION, ventilation/ intubation only. I have entered alt code status as per my prior discussion w pt daughter. " Lobito Menjivar, Please accept this email as written consent to enact a partial DNRstrictly in the event of cardiac arrestfor my father and [facility] patient, Vilma Flores. If you have any questions or need any additional information, please do not hesitate to contact me at this email address. Thank you. All the best, Gerald Flores "Tiara Colin Apr 23, 2016 13:47
[2016-04-23] MEDS: PARoxetine HCL SUSP 20 MG/10 ML UDC PEG SCH ×2 (18:24→20:51)
[2016-04-23] MEDS: INSULIN DETEMIR 100 UNITS/ML VIAL SQ SCH (21:26)
[2016-04-24] VITALS (8 sets, daily range): BP systolic 128–146; BP diastolic 73–86; PULSE 82–100; RESP 18–22; TEMP 97.2–98.4; O2SAT 88–100
[2016-04-24] MEDS: NYSTATIN 100,000 U/GM PWD 15 GM BTL TOPICAL SCH ×3 (00:46→21:34)
[2016-04-24] MEDS: ACETIC ACID 0.25% SOLN 1000 ML IRR BTL IRRIGATION SCH ×4 (00:46→21:35)
[2016-04-24] MEDS: ACETAMINOPHEN/HYDROcodone 325 MG/5 MG TAB PEG SCH ×4 (00:46→23:42)
[2016-04-24] MEDS: ARTIFICIAL TEARS OPTH OINT 3.5 APPLIC/3.5 GM TUBO EACH EYE SCH ×3 (00:47→21:33)
[2016-04-24] MEDS: FREE WATER TUBE SCH ×7 (04:00→23:42)
[2016-04-24] MEDS: INSULIN ASPART SUPPLEMENTAL SCALE SQ SCH ×4 (06:24→21:32)
[2016-04-24 07:32] LABS: HEMATOCRIT 29.1 % (39.0-51.0); MEAN CELL VOLUME 78.7 FL (80.0-100.0); MEAN CORPUSCULAR HEMOGLOBIN 25.9 PG (27.0-34.0); MEAN CORPUSCULAR HGB CONC 32.9 % (32.0-36.0); PLATELET COUNT 303 TH/MM3 (150-450); RED CELL DISTRIBUTION WIDTH 21.8 % (11.6-17.2); REVIEW FLAG FINAL; WHITE BLOOD COUNT 6.6 TH/MM3 (4.0-11.0)
[2016-04-24] MEDS: ALBUMIN HUMAN 25% 12.5 GM/50 ML BAGP IV SCH (08:46)
[2016-04-24] MEDS: levETIRAcetam 500 MG/5 ML UDC TUBE SCH ×2 (08:50→21:31)
[2016-04-24] MEDS: SENNOSIDES SYRUP 8.8 MG/5 ML CUP TUBE SCH (08:50)
[2016-04-24] MEDS: LACTULOSE SYRUP 20 GM/30 ML CUP PEG SCH (08:50)
[2016-04-24] MEDS: RANITIDINE HCL SYRUP 150 MG/10 ML UDC PO SCH (08:50)
[2016-04-24] MEDS: DILTIAZEM HCL 60 MG TAB PO SCH ×3 (08:51→21:33)
[2016-04-24] MEDS: POTASSIUM CHLORIDE 25 MEQ EFFERVESCENT TAB TUBE SCH ×2 (08:51→21:32)
[2016-04-24] MEDS: FUROSEMIDE 20 MG/2 ML VIAL IV PUSH SCH (08:52)
[2016-04-24] MEDS: LACTOBACILLUS ACIDOPHILUS TAB PEG SCH ×2 (08:52→21:31)
[2016-04-24] MEDS: METOPROLOL TARTRATE 50 MG TAB PO SCH ×2 (08:52→21:31)
--- NOTE | 2016-04-24 09:24 | HHI.PR ---
Subjective Remarks tolerating tube feedings some tracking Objective Vitals Vital Signs Date Time Temp Pulse Resp B/P Pulse Ox O2 Delivery O2 Flow Rate FiO2 04/24/16 08:00 97.3 89 22 128/76 98 04/24/16 04:00 97.4 89 18 146/86 88 04/23/16 21:53 95 T-piece 6.00 28 04/23/16 21:53 95 T-piece 6.00 28 04/23/16 21:00 94 04/23/16 21:00 T-Piece 6.00 21 04/23/16 20:00 100.0 103 20 135/72 95 04/23/16 16:06 99.3 99 24 123/81 97 04/23/16 12:06 98.1 101 22 112/69 99 I/O 04/23/16 04/23/16 04/23/16 04/24/16 04/24/16 04/24/16 06:59 14:59 22:59 06:59 14:59 22:59 Intake Total 1260 ml Output Total 200 ml 600 ml 1800 ml Balance -200 ml -600 ml -540 ml Tube Feeding 660 ml Other 600 ml Output Urine Total 200 ml 600 ml 1800 ml # Bowel Movements 1 Result Diagram: 04/24/16 0642 04/23/16 0520 Imaging Last Impressions Chest X-Ray 04/14/16 0000 Signed Impressions: Service Date/Time: Thursday, April 14, 2016 17:24 - CONCLUSION: 1. Minimal basilar opacity most characteristic of atelectasis and scarring. No effusion or pneumothorax. Durga Dotson MD Abdomen/Pelvis CT 04/12/16 0000 Signed Impressions: Service Date/Time: Tuesday, April 12, 2016 20:52 - CONCLUSION: 1. 6.4 cm necrotic mass or abscess in the soft tissues posteriorly just below the sacrum associated with some bony destructive change of the lower most sacrum and coccyx with inflammatory changes extending into the ischiorectal fossa and into the presacral retroperitoneum predominantly on the left side. There is associated fairly marked mural thickening of the anal verge and rectum. 2. There is gastrostomy and Lopez catheter present. Stable abdominal aortic aneurysm. Durga Dotson MD Head Magnetic Resonance Angiography 03/05/16 0000 Signed Impressions: Service Date/Time: Saturday, March 05, 2016 09:26 - CONCLUSION: Persistent high-grade subtotal occlusive stenotic lesions in the distal right vertebral artery and proximal basilar artery with significant improvement in flow and recanalization following initial presentation of thrombosis. Stable interstitial circulation without significant stenosis. 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 There is decreasing restricted diffusion and increasing loss of volume characteristic of a subacute to chronic infarct. No evidence of acute infarct, acute hemorrhage mass or edema. Ernesto Kulkarni MD Head CT 01/16/16 0000 Signed Impressions: Service Date/Time: Saturday, January 16, 2016 10:51 - CONCLUSION: No extensive low density in the brainstem colin more prominent in the right the left extending into the right middle cerebellar peduncle consistent with brainstem infarct nonhemorrhagic acute Wellington West MD Abdomen X-Ray 01/14/16 0000 Signed Impressions: Service Date/Time: Thursday, January 14, 2016 10:19 - CONCLUSION: Moderate stool; otherwise, negative. 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 No evidence of carotid stenosis. Glen Zamora MD Head/Brain Mag Res Venography 12/22/15 0000 Signed Impressions: Service Date/Time: Tuesday, December 22, 2015 09:22 - CONCLUSION: Normal MRV. Jonel Jones Jr., MD Objective Remarks eyes open, no purposeful movements pupils equal, anicteric mild facial asymmetry no gag reflex neck supple no rigidity lungs- no rales or wheezes regular rhythm abdomen- soft, good bowel sounds, PEG site- no signs of erythema coccyx area- deep open wound- quarter size- wound packed with 3 rolls of Kerlix - soaked with blood on removal 04/[address], no pedal edema extremities- generalized swelling Procedures 01/02/16 PEG placement 01/02/16 tracheostomy Date of Insertion: Mar 07, 2016 A/P Problem List: (1) CVA (cerebral vascular accident) ICD Code: I63.9 Status: Acute (2) A-fib ICD Code: I48.91 Status: Chronic (3) DM (diabetes mellitus) ICD Code: E11.9 Status: Chronic Assessment and Plan 60-year-old male with: -CVA (cerebral vascular accident): 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 Significant residual cognitive deficit. -Nonverbal at this time; appears to be in a locked in state. 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 -Continue Keppra and Coumadin- Palliative care following. Monitor Keppra level periodically. - evaluated by neurology; continue Keppra -cont Paxil as per family request. -Large sacral necrotic mass (6.[address] posterior to sacrum) with destruction of coccyx - stage IV decubitus ulcer versus hematoma vs possible destructive mass - s/p plastics eval (I discussed the patient previously with Dr. Yoder) who has now signed off. He recommended consulting colorectal to see if they would be able to address the area. - Dr. Chawla was area operations manager for colorectal and recommended palliative care consultation also recommended if bleeding is a concern to consider to consult interventional radiology to see if embolization could provide hemostasis rather than a large surgery -CRS consult consulted - for evaluation if will benefit from diverting colostomy - in am - seen by Dr. Mars- vascular surgery - - the wound and the patients overall poor prognosis. hospice would be appropriate. Palliative care is following. cultures +klebsiella. pt on abx per ID. no anticoagulation due to bleeding from the wound. cont wound care (packing daily). Discussed with family, including patient's cousin who is a physician in [place]. Dr. Gonzalez offered to discuss with plastic surgery getting a tissue diagnosis to rule out cancer if it would put the patient's family at ease, however pursuing aggressive surgery overlooks the patient's overall poor neurologic prognosis. The patient would not be likely to heal from this large wound given his immobility. - monitor CBC- and H stable - d/w family at bedside- wants to pursue aggressive- they are not ready for hospice at this point - Palliative care involved - 04/23- made alternative code -Fluid overload/edema with positive fluid balance - start lasix 20 mg IV q 12 hr , with albumin, k-lyte 25 meq PEG BID, monitor I/O . ff BMP ff BMP decrease to once daily Anemia of acute blood loss - secondary to bleeding from the wound. transfuse 2 units pRBCs today, hemoglobin is 9.9 today. H and H stable CRS will evaluate patient -GI/Nutrition: Previous PEG tube exchanged by GI at bedside 03/30/2016. dietary ff. -Respiratory failure: Secondary to CVA. Patient is status post tracheostomy. Continue pulmonary toilet and neb treatments as needed. Pulmonary following. - Levsin PRN secretions. -Depression: Continue Paxil. -A-fib: continue Lopressor, cardizem. NO coumadin due to significant bleeding from the sacral wound. -UTI: Resolved. Urine culture with Klebsiella on 01/31 and repeat on 03/06 negative. -Coccyx pressure ulcer- cont wound care. -History of Non-Hodgkin lymphoma: s/p brain biopsy on December 13, by Neurosurgery, Dr. Marin, Pathology consistent with acute infarct without evidence of lymphoma -Seen by Oncology, Dr. Whyte, who has signed off for current admission. -DM: Hemoglobin A1c is 7.0. Continue Levemir with sliding scale insulin- monitor and adjust the regimen as needed. - MRSA in the sputum, tracheobronchitis. Chest x-ray 04/05 was clear. completed course of zyvox. mild hypokalemia; replaced. DVT prophylaxis: no coumadin due to wound bleeding. SCDs. Problem Qualifiers (1) DM (diabetes mellitus): Qualified Code: E11.9 - Type 2 diabetes mellitus without complications Soco Pickett MD Apr 24, 2016 09:24
[2016-04-24] MEDS: HYOSCYAMINE 0.125 MG TAB G-TUBE PRN (11:52)
[2016-04-24] MEDS: PARoxetine HCL SUSP 20 MG/10 ML UDC PEG SCH (21:31)
[2016-04-24] MEDS: INSULIN DETEMIR 100 UNITS/ML VIAL SQ SCH (21:32)
[2016-04-25] VITALS (10 sets, daily range): BP systolic 120–144; BP diastolic 70–87; PULSE 88–120; RESP 19–23; TEMP 97.3–98.7; O2SAT 92–100
[2016-04-25] MEDS: FREE WATER TUBE SCH ×5 (03:27→21:36)
[2016-04-25] MEDS: ACETIC ACID 0.25% SOLN 1000 ML IRR BTL IRRIGATION SCH ×3 (05:10→21:51)
[2016-04-25] MEDS: ACETAMINOPHEN/HYDROcodone 325 MG/5 MG TAB PEG SCH ×3 (05:11→17:26)
[2016-04-25] MEDS: INSULIN ASPART SUPPLEMENTAL SCALE SQ SCH ×4 (06:37→21:00)
[2016-04-25 07:08] LABS: AUTOMATED NEUTROPHIL # 5.8 TH/MM3 (1.8-7.7); BASOPHIL # 0.1 TH/MM3 (0-0.2); BASOPHIL % 0.7 % (0.0-2.0); EOSINOPHIL # 0.2 TH/MM3 (0-0.4); EOSINOPHIL % 2.4 % (0.0-4.0); HEMATOCRIT 30.5 % (39.0-51.0); HEMO FLAGS DIFF FINAL; LYMPH % 12.1 % (9.0-44.0); LYMPHOCYTE # 0.9 TH/MM3 (1.0-4.8); MEAN CELL VOLUME 78.8 FL (80.0-100.0); MEAN CORPUSCULAR HEMOGLOBIN 25.1 PG (27.0-34.0); MEAN CORPUSCULAR HGB CONC 31.9 % (32.0-36.0); MONO % 6.7 % (0.0-8.0); NEUT % 78.1 % (16.0-70.0); PLATELET COUNT 331 TH/MM3 (150-450); RED BLOOD COUNT 3.87 MIL/MM3 (4.50-5.90); RED CELL DISTRIBUTION WIDTH 21.8 % (11.6-17.2); WHITE BLOOD COUNT 7.5 TH/MM3 (4.0-11.0)
[2016-04-25 07:43] LABS: BICARBONATE 30.3 MEQ/L (21.0-32.0); POTASSIUM 4.4 MEQ/L (3.5-5.1)
--- NOTE | 2016-04-25 10:12 | HHI.PR ---
Subjective Remarks sacral dressing changed with staff nurse- gauze - no blood- just stains from betadine tolerating tube feedings Objective Vitals Vital Signs Date Time Temp Pulse Resp B/P Pulse Ox O2 Delivery O2 Flow Rate FiO2 04/25/16 09:14 98 T-Piece 28 04/25/16 08:34 97.4 92 20 124/80 97 04/25/16 08:01 99 Trach Collar 5.00 28 04/25/16 06:00 97.3 88 20 125/80 98 04/25/16 00:00 98.1 88 23 126/84 100 04/24/16 21:45 98.4 100 22 139/80 100 04/24/16 20:00 97 04/24/16 20:00 T-Piece 28 04/24/16 19:56 99 T-piece 6.00 28 04/24/16 19:56 99 T-piece 6.00 28 04/24/16 16:00 97.4 88 22 143/86 99 04/24/16 12:00 97.2 82 22 133/73 97 I/O 04/24/16 04/24/16 04/24/16 04/25/16 04/25/16 04/25/16 07:00 15:00 23:00 07:00 15:00 23:00 Intake Total 1260 ml 706 ml 1000 ml Output Total 1800 ml 1600 ml 350 ml 600 ml Balance -540 ml -1600 ml 356 ml 400 ml Intake Oral 0 ml Tube Feeding 660 ml 506 ml 600 ml Other 600 ml 200 ml 400 ml Output Urine Total 1800 ml 1600 ml 350 ml 600 ml # Bowel Movements 1 0 0 0 Result Diagram: 04/25/16 0621 04/25/16 0621 Imaging Last Impressions Chest X-Ray 04/14/16 0000 Signed Impressions: Service Date/Time: Thursday, April 14, 2016 17:24 - CONCLUSION: 1. Minimal basilar opacity most characteristic of atelectasis and scarring. No effusion or pneumothorax. Durga Dotson MD Abdomen/Pelvis CT 04/12/16 0000 Signed Impressions: Service Date/Time: Tuesday, April 12, 2016 20:52 - CONCLUSION: 1. 6.4 cm necrotic mass or abscess in the soft tissues posteriorly just below the sacrum associated with some bony destructive change of the lower most sacrum and coccyx with inflammatory changes extending into the ischiorectal fossa and into the presacral retroperitoneum predominantly on the left side. There is associated fairly marked mural thickening of the anal verge and rectum. 2. There is gastrostomy and Lopez catheter present. Stable abdominal aortic aneurysm. Durga Dotson MD Head Magnetic Resonance Angiography 03/05/16 0000 Signed Impressions: Service Date/Time: Saturday, March 05, 2016 09:26 - CONCLUSION: Persistent high-grade subtotal occlusive stenotic lesions in the distal right vertebral artery and proximal basilar artery with significant improvement in flow and recanalization following initial presentation of thrombosis. Stable interstitial circulation without significant stenosis. 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 There is decreasing restricted diffusion and increasing loss of volume characteristic of a subacute to chronic infarct. No evidence of acute infarct, acute hemorrhage mass or edema. Ernesto Kulkarni MD Head CT 01/16/16 0000 Signed Impressions: Service Date/Time: Saturday, January 16, 2016 10:51 - CONCLUSION: No extensive low density in the brainstem colin more prominent in the right the left extending into the right middle cerebellar peduncle consistent with brainstem infarct nonhemorrhagic acute Wellington West MD Abdomen X-Ray 01/14/16 0000 Signed Impressions: Service Date/Time: Thursday, January 14, 2016 10:19 - CONCLUSION: Moderate stool; otherwise, negative. 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 No evidence of carotid stenosis. Glen Zamora MD Head/Brain Mag Res Venography 12/22/15 0000 Signed Impressions: Service Date/Time: Tuesday, December 22, 2015 09:22 - CONCLUSION: Normal MRV. Jonel Jones Jr., MD Objective Remarks eyes open, no purposeful movements pupils equal, anicteric mild facial asymmetry no gag reflex neck supple no rigidity lungs- no rales or wheezes regular rhythm abdomen- soft, good bowel sounds, PEG site- no signs of erythema coccyx area- deep open wound- quarter size- gauze- with betadine stains, no blood lopez in place, no pedal edema extremities- generalized swelling Procedures 01/02/16 PEG placement 01/02/16 tracheostomy Date of Insertion: Mar 07, 2016 A/P Problem List: (1) CVA (cerebral vascular accident) ICD Code: I63.9 Status: Acute (2) A-fib ICD Code: I48.91 Status: Chronic (3) DM (diabetes mellitus) ICD Code: E11.9 Status: Chronic Assessment and Plan 60-year-old male with: -CVA (cerebral vascular accident): 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 Significant residual cognitive deficit. -Nonverbal at this time; appears to be in a locked in state. Poor chcf prognosis. 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 -Continue Keppra and Coumadin- Palliative care following. Monitor Keppra level periodically. - evaluated by neurology; continue Keppra -cont Paxil as per family request. -Large sacral necrotic mass (6.[address] posterior to sacrum) with destruction of coccyx - stage IV decubitus ulcer versus hematoma vs possible destructive mass - s/p plastics eval (I discussed the patient previously with Dr. Yoder) who has now signed off. He recommended consulting colorectal to see if they would be able to address the area. - Dr. Chawla was records and information manager for colorectal and recommended palliative care consultation also recommended if bleeding is a concern to consider to consult interventional radiology to see if embolization could provide hemostasis rather than a large surgery -CRS consult consulted - for evaluation if will benefit from diverting colostomy - - seen by Dr. Mars- vascular surgery - - the wound and the patients overall poor prognosis. hospice would be appropriate. Palliative care is following. cultures +klebsiella. pt on abx per ID. no anticoagulation due to bleeding from the wound. cont wound care (packing daily). Discussed with family, including patient's cousin who is a physician in [place]. Dr. Gonzalez offered to discuss with plastic surgery getting a tissue diagnosis to rule out cancer if it would put the patient's family at ease, however pursuing aggressive surgery overlooks the patient's overall poor neurologic prognosis. The patient would not be likely to heal from this large wound given his immobility. - monitor CBC- and H stable - d/w family at bedside- wants to pursue aggressive- they are not ready for hospice at this point - Palliative care involved - 04/23- made alternative code -Fluid overload/edema with positive fluid balance - start lasix 20 mg IV q 12 hr , with albumin, k-lyte 25 meq PEG BID, monitor I/O . ff BMP ff BMP decrease to once daily Anemia of acute blood loss - secondary to bleeding from the wound. transfuse 2 units pRBCs today, hemoglobin is 9.9 today. H and H stable CRS will evaluate patient -GI/Nutrition: Previous PEG tube exchanged by GI at bedside 03/30/2016. dietary ff. -Respiratory failure: Secondary to CVA. Patient is status post tracheostomy. Pulmonary following. - Levsin PRN secretions. renew nebulization Atrovent q 6 scheduled renew nebulization with xopenex lowest dose q 4 scheduled and q 2 prn -Depression: Continue Paxil. -A-fib: continue Lopressor, cardizem. NO coumadin due to significant bleeding from the sacral wound. -UTI: Resolved. Urine culture with Klebsiella on 01/31 and repeat on 03/06 negative. -Coccyx pressure ulcer- cont wound care. -History of Non-Hodgkin lymphoma: s/p brain biopsy on December 13, by Neurosurgery, Dr. Marin, Pathology consistent with acute infarct without evidence of lymphoma -Seen by Oncology, Dr. Whyte, who has signed off for current admission. -DM: Hemoglobin A1c is 7.0. Continue Levemir with sliding scale insulin- monitor and adjust the regimen as needed. - MRSA in the sputum, tracheobronchitis. Chest x-ray 04/05 was clear. completed course of zyvox. mild hypokalemia; replaced. DVT prophylaxis: no coumadin due to wound bleeding. SCDs. 6 pm desaturated, tachycardic, patient appears anxious- eyes darting lungs with secretiions suctioning vigorous- mucus plug aggressive suctioning. duonebulization with Atrovent and xopenex stat CXR done- reviewed by me- fluid in minor fissure, fluid overload ABG- respiratory alkalosis at 70% Fi2 t piece continue to monitor d/w respiratory Give prn IV Lorazepam Problem Qualifiers (1) DM (diabetes mellitus): Qualified Code: E11.9 - Type 2 diabetes mellitus without complications Soco Pickett MD Apr 25, 2016 10:12
[2016-04-25] MEDS: SENNOSIDES SYRUP 8.8 MG/5 ML CUP TUBE SCH (10:26)
[2016-04-25] MEDS: RANITIDINE HCL SYRUP 150 MG/10 ML UDC PO SCH (10:26)
[2016-04-25] MEDS: POTASSIUM CHLORIDE 25 MEQ EFFERVESCENT TAB TUBE SCH (10:26)
[2016-04-25] MEDS: DILTIAZEM HCL 60 MG TAB PO SCH ×3 (10:26→17:26)
[2016-04-25] MEDS: levETIRAcetam 500 MG/5 ML UDC TUBE SCH ×2 (10:26→21:35)
[2016-04-25] MEDS: LACTOBACILLUS ACIDOPHILUS TAB PEG SCH ×2 (10:28→21:35)
[2016-04-25] MEDS: FUROSEMIDE 20 MG/2 ML VIAL IV PUSH SCH (10:28)
[2016-04-25] MEDS: LACTULOSE SYRUP 20 GM/30 ML CUP PEG SCH (10:28)
[2016-04-25] MEDS: METOPROLOL TARTRATE 50 MG TAB PO SCH ×2 (10:28→21:35)
[2016-04-25] MEDS: ARTIFICIAL TEARS OPTH OINT 3.5 APPLIC/3.5 GM TUBO EACH EYE SCH ×2 (10:29→21:47)
[2016-04-25] MEDS: NYSTATIN 100,000 U/GM PWD 15 GM BTL TOPICAL SCH ×2 (10:29→21:47)
[2016-04-25] MEDS: ALBUMIN HUMAN 25% 12.5 GM/50 ML BAGP IV SCH (10:31)
[2016-04-25] MEDS: cefTRIAXone INJ 2,000 MG in SODIUM CHLORIDE 0.9% INJ 100 ML IV SCH ×2 (12:00→12:45)
[2016-04-25 18:07] LABS: BLOOD GAS BASE EXCESS 6.6 mmol/L (-2-2); BLOOD GAS CARBOXYHEMOGLOBIN 1.8 % (0-4); BLOOD GAS HCO3 30 mmol/L (22-26); BLOOD GAS METHEMOGLOBIN 0.6 % (0-2); BLOOD GAS O2 HGB SATURATION 92 % (90-100); BLOOD GAS OXYGEN CONTENT 13.7 Vol % (12.0-20.0); BLOOD GAS PCO2 41 mmHg (38-42); BLOOD GAS PO2 72 mmHg (61-120); BLOOD GAS TOTAL HGB 10.5 G/DL (12.0-16.0); CRITICAL VALUE NO; TEMP CORR TO 98.6
[2016-04-25 18:08] LABS: DRAW SITE RRA; FIO2 70 %; NUMBER OF ARTERIAL PUNCTURES 1; STAT YES; ULNAR PULSE PRESENT
--- NOTE | 2016-04-25 18:21 | HHI.FPPN ---
Addendum to progress note ADDENDUM Reason for addendum: Additonal documentation Additional information [facility] called about 6 PM, residents responded. 60 year old male with history of acute pontine and cerebellar infarct with basilar artery thrombosis, fluid overload, acute anemia, tracheostomy, atrial fibrillation. Nurse reports desaturation down to low 80's, he was placed on 70% oxygen by tracheostomy. He was given a bronchial lavage with significant sputum removal and oxygen saturation improved to upper 90's. O2 saturation now stable, but with accessory muscle use. Vitals: P: 120 19 120/70 92% on 40% O2 General: respiratory distress, accessory muscle use HEENT: Normocephalic CV: RRR, no murmurs. Pulses regular and bounding. Cap refill normal. Respiratory: Accessory muscle use, O2 saturation 92% on 40% oxygen by tracheostomy. Rhonchi present on right greater than left. Abdomen: soft. Neuro: Eyes open, not verbal, no purposeful movements (chronic) AB.48 pO2: 72 pCO2: 41 HCO3: 30 A/P: Differential: PNA, pulmonary embolism, mucous plug. Mucous plug seems most likely given spontaneous improvement in O2 saturation after lavage. Plan: - ABG - Chest x-ray - Furosemide 40 mg once - O2 supplementation with oximetry continuously - Atrovent treatment (does not tolerate albuterol) - Spoke with attending physician and book cutter, attending now taking over. Gerald Sotelo MD R2 Apr 25, 2016 18:21
--- NOTE | 2016-04-25 19:03 | RADRPT ---
EXAM DATE/TIME: 04/25/2016 18:10 [facility] COMPARISON: CHEST SINGLE AP, April 14, 2016, 17:24. INDICATIONS : Shortness of breath MEDICAL HISTORY : Hypertension. Diabetes mellitus type II. Lymphoma. SURGICAL HISTORY : None. ENCOUNTER: Initial ACUITY: 1 day PAIN SCORE: Non-responsive. LOCATION: Bilateral chest FINDINGS: There is a tracheostomy tube in place. The heart size is normal. There is linear suspected atelectasi s at the right lower lung. There some minimal patchy density at the left base. There is widening of t he glenohumeral joint on the right.. CONCLUSION: Suspected basilar atelectasis. Glen Blanco MD on April 25, 2016 at 19:00 Board Certified Radiologist. This report was verified electronically.
[2016-04-25] MEDS: LEVALBUTEROL HYDROCHLORIDE NEB (19:22)
[2016-04-25] MEDS: DILTIAZEM HCL 90 MG TAB PEG SCH (21:00)
[2016-04-25] MEDS: INSULIN DETEMIR 100 UNITS/ML VIAL SQ SCH (21:47)
[2016-04-26] VITALS (10 sets, daily range): BP systolic 97–140; BP diastolic 63–86; PULSE 78–106; RESP 20; TEMP 96.4–98.8; O2SAT 95–100
[2016-04-26] MEDS: ACETAMINOPHEN/HYDROcodone 325 MG/5 MG TAB PEG SCH ×5 (00:07→23:41)
[2016-04-26] MEDS: POTASSIUM CHLORIDE 25 MEQ EFFERVESCENT TAB TUBE SCH ×3 (00:07→21:20)
[2016-04-26] MEDS: FREE WATER TUBE SCH ×7 (00:11→23:41)
[2016-04-26] MEDS: LEVALBUTEROL HYDROCHLORIDE NEB ×7 (00:56→23:48)
[2016-04-26] MEDS: RESP: ALBUTEROL 2.5 MG/IPRATROPIUM 0.5 MG NEB (SCH) NEB ×4 (04:00→16:47)
[2016-04-26] MEDS: RESP: IPRATROPIUM 0.5 MG/2.5 ML NEB NEB SCH ×4 (04:29→22:00)
[2016-04-26] MEDS: INSULIN ASPART SUPPLEMENTAL SCALE SQ SCH ×4 (05:27→21:25)
[2016-04-26] MEDS: ACETIC ACID 0.25% SOLN 1000 ML IRR BTL IRRIGATION SCH ×3 (05:35→21:31)
[2016-04-26 07:40] LABS: BICARBONATE 28.6 MEQ/L (21.0-32.0); POTASSIUM 4.2 MEQ/L (3.5-5.1)
[2016-04-26] MEDS: ALBUMIN HUMAN 25% 12.5 GM/50 ML BAGP IV SCH (08:04)
[2016-04-26] MEDS: RANITIDINE HCL SYRUP 150 MG/10 ML UDC PO SCH (08:05)
[2016-04-26] MEDS: METOPROLOL TARTRATE 50 MG TAB PO SCH ×2 (08:05→21:20)
[2016-04-26] MEDS: SENNOSIDES SYRUP 8.8 MG/5 ML CUP TUBE SCH (08:05)
[2016-04-26] MEDS: LACTULOSE SYRUP 20 GM/30 ML CUP PEG SCH (08:05)
[2016-04-26] MEDS: LACTOBACILLUS ACIDOPHILUS TAB PEG SCH ×2 (08:05→21:19)
[2016-04-26] MEDS: FUROSEMIDE 20 MG/2 ML VIAL IV PUSH SCH (08:05)
[2016-04-26] MEDS: DILTIAZEM HCL 90 MG TAB PEG SCH ×4 (08:05→21:19)
[2016-04-26] MEDS: levETIRAcetam 500 MG/5 ML UDC TUBE SCH ×2 (08:05→21:20)
[2016-04-26] MEDS: NYSTATIN 100,000 U/GM PWD 15 GM BTL TOPICAL SCH ×2 (08:06→21:31)
[2016-04-26] MEDS: ARTIFICIAL TEARS OPTH OINT 3.5 APPLIC/3.5 GM TUBO EACH EYE SCH ×2 (08:06→21:31)
[2016-04-26] MEDS: cefTRIAXone INJ 2,000 MG in SODIUM CHLORIDE 0.9% INJ 100 ML IV SCH (11:40)
--- NOTE | 2016-04-26 12:04 | HHI.PR ---
Subjective Remarks maintaining good sats at 35% Fi02 overnight- T piece secretion minimal no use of accessory muscles telemetry sinus- rate 80s Objective Vitals Vital Signs Date Time Temp Pulse Resp B/P Pulse Ox O2 Delivery O2 Flow Rate FiO2 04/26/16 08:48 97.9 106 20 140/77 97 04/26/16 08:20 99 T-piece 35 04/26/16 08:20 99 T-piece 35 04/26/16 07:57 104 04/26/16 07:55 98 T-Piece 35 04/26/16 06:58 18 04/26/16 04:42 97.8 93 20 111/67 97 04/26/16 01:52 98.3 85 20 111/73 100 04/26/16 01:10 99 T-piece 6.00 35 04/25/16 21:11 98.7 116 22 141/87 96 04/25/16 19:29 99 Blow-by 6.00 50 04/25/16 19:27 99 T-piece 6.00 50 04/25/16 16:00 98.3 120 19 120/70 93 04/25/16 14:20 97.5 105 22 144/86 92 I/O 04/25/16 04/25/16 04/25/16 04/26/16 04/26/16 04/26/16 07:02 15:02 23:02 07:02 15:02 23:02 Intake Total 1000 ml 0 ml Output Total 600 ml 475 ml Balance 400 ml -475 ml Intake Oral 0 ml 0 ml Tube Feeding 600 ml Other 400 ml Output Urine Total 600 ml 475 ml # Bowel Movements 0 0 Result Diagram: 04/25/16 0621 04/26/16 0616 Imaging Last Impressions Chest X-Ray 04/25/16 0000 Signed Impressions: Service Date/Time: April 18:10 - CONCLUSION: Suspected basilar atelectasis. Glen Blanco MD Abdomen/Pelvis CT 04/12/16 0000 Signed Impressions: Service Date/Time: Tuesday, April 12, 2016 20:52 - CONCLUSION: 1. 6.4 cm necrotic mass or abscess in the soft tissues posteriorly just below the sacrum associated with some bony destructive change of the lower most sacrum and coccyx with inflammatory changes extending into the ischiorectal fossa and into the presacral retroperitoneum predominantly on the left side. There is associated fairly marked mural thickening of the anal verge and rectum. 2. There is gastrostomy and Lopez catheter present. Stable abdominal aortic aneurysm. Durga Dotson MD Head Magnetic Resonance Angiography 03/05/16 0000 Signed Impressions: Service Date/Time: Saturday, March 05, 2016 09:26 - CONCLUSION: Persistent high-grade subtotal occlusive stenotic lesions in the distal right vertebral artery and proximal basilar artery with significant improvement in flow and recanalization following initial presentation of thrombosis. Stable interstitial circulation without significant stenosis. 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 There is decreasing restricted diffusion and increasing loss of volume characteristic of a subacute to chronic infarct. No evidence of acute infarct, acute hemorrhage mass or edema. Ernesto Kulkarni MD Head CT 01/16/16 0000 Signed Impressions: Service Date/Time: Saturday, January 16, 2016 10:51 - CONCLUSION: No extensive low density in the brainstem colin more prominent in the right the left extending into the right middle cerebellar peduncle consistent with brainstem infarct nonhemorrhagic acute Wellington West MD Abdomen X-Ray 01/14/16 0000 Signed Impressions: Service Date/Time: Thursday, January 14, 2016 10:19 - CONCLUSION: Moderate stool; otherwise, negative. 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 No evidence of carotid stenosis. Glen Zamora MD Head/Brain Mag Res Venography 12/22/15 0000 Signed Impressions: Service Date/Time: Tuesday, December 22, 2015 09:22 - CONCLUSION: Normal MRV. Jonel Jones Jr., MD Objective Remarks eyes open, no purposeful movements pupils equal, anicteric mild facial asymmetry no gag reflex neck supple no rigidity lungs- no rales or wheezes regular rhythm abdomen- soft, good bowel sounds, PEG site- no signs of erythema lopez in place extremities- generalized swelling Procedures 01/02/16 PEG placement 01/02/16 tracheostomy Urinary Catheter: Yes Lopez insert reason: Prolonged Immobilization Date of Insertion: Mar 07, 2016 A/P Problem List: (1) CVA (cerebral vascular accident) ICD Code: I63.9 Status: Acute (2) A-fib ICD Code: I48.91 Status: Chronic (3) DM (diabetes mellitus) ICD Code: E11.9 Status: Chronic Assessment and Plan 60-year-old male with: -CVA (cerebral vascular accident): 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 Significant residual cognitive deficit. -Nonverbal at this time; appears to be in a locked in state. 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 -Continue Keppra and Coumadin- Palliative care following. Monitor Keppra level periodically. - evaluated by neurology; continue Keppra -cont Paxil as per family request. -Large sacral necrotic mass (6.[address] posterior to sacrum) with destruction of coccyx - stage IV decubitus ulcer versus hematoma vs possible destructive mass - s/p plastics eval (I discussed the patient previously with Dr. Yoder) who has now signed off. He recommended consulting colorectal to see if they would be able to address the area. - Dr. Chawla was registration manager for colorectal and recommended palliative care consultation also recommended if bleeding is a concern to consider to consult interventional radiology to see if embolization could provide hemostasis rather than a large surgery -CRS consult consulted - for evaluation if will benefit from diverting colostomy - - seen by Dr. Mars- vascular surgery - - the wound and the patients overall poor prognosis. hospice would be appropriate. Palliative care is following. cultures +klebsiella. pt on abx per ID. no anticoagulation due to bleeding from the wound. cont wound care (packing daily). Discussed with family, including patient's cousin who is a physician in [place]. Dr. Gonzalez offered to discuss with plastic surgery getting a tissue diagnosis to rule out cancer if it would put the patient's family at ease, however pursuing aggressive surgery overlooks the patient's overall poor neurologic prognosis. The patient would not be likely to heal from this large wound given his immobility. - monitor CBC- and H stable - d/w family at bedside- wants to pursue aggressive- they are not ready for hospice at this point - Palliative care involved - 04/23- made alternative code -Fluid overload/edema with positive fluid balance - start lasix 20 mg IV daily, with albumin, k-lyte 25 meq PEG BID, monitor I/O . ff BMP ff BMP decrease to once daily continue on current Fi02- 35%- - Respiratory failure: Secondary to CVA. Patient is status post tracheostomy. Pulmonary following. - Levsin PRN secretions. needs suctioning renew nebulization Atrovent q 6 scheduled renew nebulization with xopenex lowest dose q 4 scheduled and q 2 prn Anemia of acute blood loss - secondary to bleeding from the wound. S/P transfuse 2 units pRBCs ff H and H H and H stable CRS will evaluate patient -GI/Nutrition: Previous PEG tube exchanged by GI at bedside 03/30/2016. dietary ff. -Depression: Continue Paxil. -A-fib: rate better controlled continue Lopressor, cardizem increased 90 mg qid. NO coumadin due to significant bleeding from the sacral wound. -UTI: Resolved. Urine culture with Klebsiella on 01/31 and repeat on 03/06 negative. -Coccyx pressure ulcer- cont wound care. -History of Non-Hodgkin lymphoma: s/p brain biopsy on December 13, by Neurosurgery, Dr. Marin, Pathology consistent with acute infarct without evidence of lymphoma -Seen by Oncology, Dr. Whyte, who has signed off for current admission. -DM: Hemoglobin A1c is 7.0. Continue Levemir with sliding scale insulin- monitor and adjust the regimen as needed. - MRSA in the sputum, tracheobronchitis. Chest x-ray 04/05 was clear. completed course of zyvox. mild hypokalemia; replaced. DVT prophylaxis: no coumadin due to wound bleeding. SCDs. Problem Qualifiers (1) DM (diabetes mellitus): Qualified Code: E11.9 - Type 2 diabetes mellitus without complications Soco Pickett MD Apr 26, 2016 12:04
[2016-04-26] MEDS: PARoxetine HCL SUSP 20 MG/10 ML UDC PEG SCH (18:38)
[2016-04-26] MEDS: INSULIN DETEMIR 100 UNITS/ML VIAL SQ SCH (21:20)
[2016-04-27] VITALS (9 sets, daily range): BP systolic 112–146; BP diastolic 64–80; PULSE 80–121; RESP 18–22; TEMP 95.7–99.9; O2SAT 96–99
[2016-04-27] MEDS: INSULIN ASPART SUPPLEMENTAL SCALE SQ SCH ×4 (05:14→21:16)
[2016-04-27] MEDS: ACETAMINOPHEN/HYDROcodone 325 MG/5 MG TAB PEG SCH ×3 (05:15→18:21)
[2016-04-27] MEDS: ACETIC ACID 0.25% SOLN 1000 ML IRR BTL IRRIGATION SCH ×3 (05:15→21:31)
[2016-04-27] MEDS: FREE WATER TUBE SCH ×5 (05:15→21:20)
[2016-04-27] MEDS: RESP: ALBUTEROL 2.5 MG/IPRATROPIUM 0.5 MG NEB (SCH) NEB ×2 (08:59→15:52)
[2016-04-27] MEDS: ALBUMIN HUMAN 25% 12.5 GM/50 ML BAGP IV SCH (09:00)
[2016-04-27] MEDS: LACTULOSE SYRUP 20 GM/30 ML CUP PEG SCH (09:00)
[2016-04-27] MEDS: levETIRAcetam 500 MG/5 ML UDC TUBE SCH ×2 (09:00→21:17)
[2016-04-27] MEDS: METOPROLOL TARTRATE 50 MG TAB PO SCH ×2 (09:00→21:16)
[2016-04-27] MEDS: LACTOBACILLUS ACIDOPHILUS TAB PEG SCH ×2 (09:00→21:18)
[2016-04-27] MEDS: DILTIAZEM HCL 90 MG TAB PEG SCH ×4 (09:00→21:15)
[2016-04-27] MEDS: POTASSIUM CHLORIDE 25 MEQ EFFERVESCENT TAB TUBE SCH ×2 (09:00→21:31)
[2016-04-27] MEDS: SENNOSIDES SYRUP 8.8 MG/5 ML CUP TUBE SCH (09:00)
[2016-04-27] MEDS: RANITIDINE HCL SYRUP 150 MG/10 ML UDC PO SCH (09:00)
[2016-04-27] MEDS: NYSTATIN 100,000 U/GM PWD 15 GM BTL TOPICAL SCH ×2 (09:00→21:31)
[2016-04-27] MEDS: FUROSEMIDE 20 MG/2 ML VIAL IV PUSH SCH (11:15)
[2016-04-27] MEDS: cefTRIAXone INJ 2,000 MG in SODIUM CHLORIDE 0.9% INJ 100 ML IV SCH (12:44)
--- NOTE | 2016-04-27 16:53 | HHI.PR ---
Subjective Remarks patient minimal secretion sats maintaing well on current fi02 Objective Vitals Vital Signs Date Time Temp Pulse Resp B/P Pulse Ox O2 Delivery O2 Flow Rate FiO2 04/27/16 13:45 17 04/27/16 13:01 97.1 95 18 146/75 98 04/27/16 09:10 98 T-piece 6.00 28 04/27/16 08:30 98 T-Piece 35 04/27/16 08:00 95.7 96 18 121/80 99 04/27/16 04:00 97.8 94 21 112/69 99 04/27/16 00:00 97.7 80 21 116/68 96 04/26/16 20:10 99 T-piece 6.00 35 04/26/16 20:00 98.8 86 20 130/86 95 I/O 04/26/16 04/26/16 04/26/16 04/27/16 04/27/16 04/27/16 07:00 15:00 23:00 07:00 15:00 23:00 Intake Total 0 ml Output Total 475 ml 1300 ml 450 ml 700 ml Balance -475 ml -1300 ml -450 ml -700 ml Intake Oral 0 ml Output Urine Total 475 ml 1300 ml 450 ml 700 ml # Bowel Movements 0 1 0 0 1 Result Diagram: 04/25/16 0621 04/26/16 0616 Imaging Last Impressions Chest X-Ray 04/25/16 0000 Signed Impressions: Service Date/Time: April 18:10 - CONCLUSION: Suspected basilar atelectasis. Glen Blanco MD Abdomen/Pelvis CT 04/12/16 0000 Signed Impressions: Service Date/Time: Tuesday, April 12, 2016 20:52 - CONCLUSION: 1. 6.4 cm necrotic mass or abscess in the soft tissues posteriorly just below the sacrum associated with some bony destructive change of the lower most sacrum and coccyx with inflammatory changes extending into the ischiorectal fossa and into the presacral retroperitoneum predominantly on the left side. There is associated fairly marked mural thickening of the anal verge and rectum. 2. There is gastrostomy and Lopez catheter present. Stable abdominal aortic aneurysm. Durga Dotson MD Head Magnetic Resonance Angiography 03/05/16 0000 Signed Impressions: Service Date/Time: Saturday, March 05, 2016 09:26 - CONCLUSION: Persistent high-grade subtotal occlusive stenotic lesions in the distal right vertebral artery and proximal basilar artery with significant improvement in flow and recanalization following initial presentation of thrombosis. Stable interstitial circulation without significant stenosis. 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 There is decreasing restricted diffusion and increasing loss of volume characteristic of a subacute to chronic infarct. No evidence of acute infarct, acute hemorrhage mass or edema. Ernesto Kulkarni MD Head CT 01/16/16 0000 Signed Impressions: Service Date/Time: Saturday, January 16, 2016 10:51 - CONCLUSION: No extensive low density in the brainstem colin more prominent in the right the left extending into the right middle cerebellar peduncle consistent with brainstem infarct nonhemorrhagic acute Wellington West MD Abdomen X-Ray 01/14/16 0000 Signed Impressions: Service Date/Time: Thursday, January 14, 2016 10:19 - CONCLUSION: Moderate stool; otherwise, negative. 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 No evidence of carotid stenosis. Glen Zamora MD Head/Brain Mag Res Venography 12/22/15 0000 Signed Impressions: Service Date/Time: Tuesday, December 22, 2015 09:22 - CONCLUSION: Normal MRV. Jonel Jones Jr., MD Objective Remarks eyes open, no purposeful movements pupils equal, anicteric mild facial asymmetry no gag reflex neck supple no rigidity, tracheostomy in place lungs- no rales or wheezes regular rhythm abdomen- soft, good bowel sounds, PEG site- no signs of erythema lopez in place extremities- generalized swelling- decreased Procedures 01/02/16 PEG placement 01/02/16 tracheostomy Date of Insertion: Mar 07, 2016 A/P Problem List: (1) CVA (cerebral vascular accident) ICD Code: I63.9 Status: Acute (2) A-fib ICD Code: I48.91 Status: Chronic (3) DM (diabetes mellitus) ICD Code: E11.9 Status: Chronic Assessment and Plan 60-year-old male with: -CVA (cerebral vascular accident): 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 Significant residual cognitive deficit. -Nonverbal at this time; appears to be in a locked in state. Poor prison prognosis. 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 -Continue Keppra and Coumadin- Palliative care following. Monitor Keppra level periodically. - evaluated by neurology; continue Keppra -cont Paxil as per family request. -Large sacral necrotic mass (6.[address] posterior to sacrum) with destruction of coccyx - stage IV decubitus ulcer versus hematoma vs possible destructive mass - s/p plastics eval (I discussed the patient previously with Dr. Yoder) who has now signed off. He recommended consulting colorectal to see if they would be able to address the area. - Dr. Chawla was siphoner for colorectal and recommended palliative care consultation also recommended if bleeding is a concern to consider to consult interventional radiology to see if embolization could provide hemostasis rather than a large surgery -CRS consult consulted - for evaluation if will benefit from diverting colostomy - - seen by Dr. Mars- vascular surgery - - the wound and the patients overall poor prognosis. hospice would be appropriate. Palliative care is following. cultures +klebsiella. pt on abx per ID. no anticoagulation due to bleeding from the wound. cont wound care (packing daily). Discussed with family, including patient's cousin who is a physician in [place]. Dr. Gonzalez offered to discuss with plastic surgery getting a tissue diagnosis to rule out cancer if it would put the patient's family at ease, however pursuing aggressive surgery overlooks the patient's overall poor neurologic prognosis. The patient would not be likely to heal from this large wound given his immobility. - monitor CBC- and H stable - d/w family at bedside- wants to pursue aggressive- they are not ready for hospice at this point - Palliative care involved - 04/23- made alternative code -Fluid overload/edema with positive fluid balance - start lasix 20 mg IV daily, with albumin, k-lyte 25 meq PEG BID, monitor I/O . ff BMP ff BMP decreased to once daily continue on current Fi02- 35%- - Respiratory failure: Secondary to CVA. Patient is status post tracheostomy. Pulmonary following. - Levsin PRN secretions. needs suctioning renew duoneb q 6 Xopenex q 2 prn Anemia of acute blood loss - secondary to bleeding from the wound. S/P transfuse 2 units pRBCs ff H and H H and H stable CRS will evaluate patient -GI/Nutrition: Previous PEG tube exchanged by GI at bedside 03/30/2016. dietary ff. -Depression: Continue Paxil. -A-fib: rate better controlled continue Lopressor, cardizem increased 90 mg qid. NO coumadin due to significant bleeding from the sacral wound. -UTI: Resolved. Urine culture with Klebsiella on 01/31 and repeat on 03/06 negative. -Coccyx pressure ulcer- cont wound care. -History of Non-Hodgkin lymphoma: s/p brain biopsy on December 13, by Neurosurgery, Dr. Marin, Pathology consistent with acute infarct without evidence of lymphoma -Seen by Oncology, Dr. Whyte, who has signed off -DM: Hemoglobin A1c is 7.0. Continue Levemir with sliding scale insulin- monitor and adjust the regimen as needed. - MRSA in the sputum, tracheobronchitis. Chest x-ray 04/05 was clear. completed course of zyvox. mild hypokalemia; replaced. DVT prophylaxis: no coumadin due to wound bleeding. SCDs. Problem Qualifiers (1) DM (diabetes mellitus): Qualified Code: E11.9 - Type 2 diabetes mellitus without complications Soco Pickett MD Apr 27, 2016 16:53
[2016-04-27] MEDS: PARoxetine HCL SUSP 20 MG/10 ML UDC PEG SCH (18:20)
[2016-04-27] MEDS: ARTIFICIAL TEARS OPTH OINT 3.5 APPLIC/3.5 GM TUBO EACH EYE SCH (21:00)
[2016-04-27] MEDS: INSULIN DETEMIR 100 UNITS/ML VIAL SQ SCH (21:16)
[2016-04-28] VITALS (12 sets, daily range): BP systolic 111–128; BP diastolic 61–77; PULSE 78–97; RESP 18–22; TEMP 97.5–98.2; O2SAT 95–100
[2016-04-28] MEDS: LEVALBUTEROL HYDROCHLORIDE NEB ×2 (00:50→08:00)
[2016-04-28] MEDS: ACETAMINOPHEN/HYDROcodone 325 MG/5 MG TAB PEG SCH ×5 (00:58→23:42)
[2016-04-28] MEDS: FREE WATER TUBE SCH ×7 (04:00→23:43)
[2016-04-28] MEDS: INSULIN ASPART SUPPLEMENTAL SCALE SQ SCH ×4 (05:57→21:40)
[2016-04-28] MEDS: ACETIC ACID 0.25% SOLN 1000 ML IRR BTL IRRIGATION SCH ×3 (05:58→22:07)
[2016-04-28] MEDS: RANITIDINE HCL SYRUP 150 MG/10 ML UDC PO SCH (08:48)
[2016-04-28] MEDS: ALBUMIN HUMAN 25% 12.5 GM/50 ML BAGP IV SCH (08:48)
[2016-04-28] MEDS: METOPROLOL TARTRATE 50 MG TAB PO SCH ×2 (08:49→21:39)
[2016-04-28] MEDS: POTASSIUM CHLORIDE 25 MEQ EFFERVESCENT TAB TUBE SCH ×2 (08:49→21:39)
[2016-04-28] MEDS: LACTOBACILLUS ACIDOPHILUS TAB PEG SCH ×2 (08:49→21:40)
[2016-04-28] MEDS: levETIRAcetam 500 MG/5 ML UDC TUBE SCH ×2 (08:49→21:39)
[2016-04-28] MEDS: DILTIAZEM HCL 90 MG TAB PEG SCH ×4 (08:49→21:39)
[2016-04-28] MEDS: ARTIFICIAL TEARS OPTH OINT 3.5 APPLIC/3.5 GM TUBO EACH EYE SCH ×2 (08:49→21:41)
[2016-04-28] MEDS: LACTULOSE SYRUP 20 GM/30 ML CUP PEG SCH (09:00)
[2016-04-28] MEDS: SENNOSIDES SYRUP 8.8 MG/5 ML CUP TUBE SCH (09:00)
[2016-04-28] MEDS: NYSTATIN 100,000 U/GM PWD 15 GM BTL TOPICAL SCH ×2 (09:00→21:41)
--- NOTE | 2016-04-28 10:51 | HHI.PR ---
Subjective Remarks maintaining good sats at 35% minimal secretions tolerating tube feedings Objective Vitals Vital Signs Date Time Temp Pulse Resp B/P Pulse Ox O2 Delivery O2 Flow Rate FiO2 04/28/16 08:00 97.7 95 18 120/69 98 04/28/16 06:12 97.5 91 22 117/77 98 04/28/16 02:55 99 T-piece 6.00 35 04/28/16 02:55 99 T-piece 6.00 35 04/28/16 01:01 97.9 81 22 123/69 97 04/27/16 22:00 98 T-piece 6.00 35 04/27/16 22:00 98 T-piece 35 04/27/16 20:00 99.9 121 22 119/64 96 04/27/16 16:00 97.1 95 18 146/75 98 04/27/16 13:45 17 04/27/16 13:01 97.1 95 18 146/75 98 04/27/16 11:00 92 I/O 04/27/16 04/27/16 04/27/16 04/28/16 04/28/16 04/28/16 07:00 15:00 23:00 07:00 15:00 23:00 Output Total 450 ml 700 ml 500 ml 750 ml Balance -450 ml -700 ml -500 ml -750 ml Output Urine Total 450 ml 700 ml 500 ml 750 ml # Bowel Movements 0 1 1 1 Result Diagram: 04/25/1621 04/26/16 0616 Objective Remarks eyes open, no purposeful movements pupils equal, anicteric mild facial asymmetry no gag reflex neck supple no rigidity, tracheostomy in place lungs- no rales or wheezes regular rhythm abdomen- soft, good bowel sounds, PEG site- no signs of erythema lopez in place extremities- generalized swelling- improving Procedures 01/02/16 PEG placement 01/02/16 tracheostomy Date of Insertion: Mar 07, 2016 A/P Problem List: (1) CVA (cerebral vascular accident) ICD Code: I63.9 Status: Acute (2) A-fib ICD Code: I48.91 Status: Chronic (3) DM (diabetes mellitus) ICD Code: E11.9 Status: Chronic Assessment and Plan 60-year-old male with: -CVA (cerebral vascular accident): 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 Significant residual cognitive deficit. -Nonverbal at this time; appears to be in a locked in state. Poor skilled nursing prognosis. 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 -Continue Keppra and Coumadin- Palliative care following. Monitor Keppra level periodically. - evaluated by neurology; continue Keppra -cont Paxil as per family request. -Large sacral necrotic mass (6.[address] posterior to sacrum) with destruction of coccyx - stage IV decubitus ulcer versus hematoma vs possible destructive mass - s/p plastics eval (I discussed the patient previously with Dr. Yoder) who has now signed off. He recommended consulting colorectal to see if they would be able to address the area. - Dr. Chawla was network operations specialist for colorectal and recommended palliative care consultation also recommended if bleeding is a concern to consider to consult interventional radiology to see if embolization could provide hemostasis rather than a large surgery -CRS consult consulted - for evaluation if will benefit from diverting colostomy - - seen by Dr. Mars- vascular surgery - - the wound and the patients overall poor prognosis. hospice would be appropriate. Palliative care is following. cultures +klebsiella. pt on abx per ID. no anticoagulation due to bleeding from the wound. cont wound care (packing daily). Discussed with family, including patient's cousin who is a physician in [place]. Dr. Gonzalez offered to discuss with plastic surgery getting a tissue diagnosis to rule out cancer if it would put the patient's family at ease, however pursuing aggressive surgery overlooks the patient's overall poor neurologic prognosis. The patient would not be likely to heal from this large wound given his immobility. - monitor CBC- and H stable - d/w family at bedside- wants to pursue aggressive- they are not ready for hospice at this point - Palliative care involved - 04/23- made alternative code -Fluid overload/edema with positive fluid balance -generalized edema- continues to imrprove start lasix 20 mg IV daily, with albumin, k-lyte 25 meq PEG BID, monitor I/O . ff BMP ff BMP Respiratory failure: Secondary to CVA. Patient is status post tracheostomy. Pulmonary following. on Fi02 35%- d/w RT taper to 28% as toelrated - Levsin PRN secretions. needs suctioning renew duoneb q 6 Xopenex q 2 prn Anemia of acute blood loss - secondary to bleeding from the wound. S/P transfuse 2 units pRBCs ff H and H H and H stable CRS will evaluate patient -GI/Nutrition: Previous PEG tube exchanged by GI at bedside 03/30/2016. dietary ff. -Depression: Continue Paxil. -A-fib: rate better controlled- on telmetry- 04/28- in SR continue Lopressor, cardizem increased 90 mg qid. NO coumadin due to significant bleeding from the sacral wound. -UTI: Resolved. Urine culture with Klebsiella on 01/31 and repeat on 03/06 negative. -Coccyx pressure ulcer- cont wound care. -History of Non-Hodgkin lymphoma: s/p brain biopsy on December 13, by Neurosurgery, Dr. Marin, Pathology consistent with acute infarct without evidence of lymphoma -Seen by Oncology, Dr. Whyte, who has signed off -DM: Hemoglobin A1c is 7.0. Continue Levemir with sliding scale insulin- monitor and adjust the regimen as needed. - MRSA in the sputum, tracheobronchitis. Chest x-ray 04/05 was clear. completed course of zyvox. mild hypokalemia; replaced. DVT prophylaxis: no coumadin due to wound bleeding. SCDs. Problem Qualifiers (1) DM (diabetes mellitus): Qualified Code: E11.9 - Type 2 diabetes mellitus without complications Soco Pickett MD Apr 28, 2016 10:51
[2016-04-28] MEDS: RESP: LEVALBUTEROL HYDROCHLORIDE 0.63 MG/3 ML NEB (PRN) NEB (12:00)
[2016-04-28] MEDS: FUROSEMIDE 20 MG/2 ML VIAL IV PUSH SCH (12:00)
[2016-04-28] MEDS: cefTRIAXone INJ 2,000 MG in SODIUM CHLORIDE 0.9% INJ 100 ML IV SCH (13:37)
[2016-04-28] MEDS: RESP: LEVALBUTEROL HYDROCHLORIDE 0.63 MG/3 ML NEB (SCH) NEB ×2 (15:57→23:41)
[2016-04-28] MEDS: PARoxetine HCL SUSP 20 MG/10 ML UDC PEG SCH (18:39)
[2016-04-28] MEDS: INSULIN DETEMIR 100 UNITS/ML VIAL SQ SCH (21:40)
[2016-04-28] MEDS: HYOSCYAMINE 0.125 MG TAB G-TUBE PRN (23:42)
[2016-04-29] VITALS (9 sets, daily range): BP systolic 107–145; BP diastolic 60–78; PULSE 70–103; RESP 18–22; TEMP 95.5–98.3; O2SAT 98–100
[2016-04-29] MEDS: FREE WATER TUBE SCH ×5 (04:00→20:00)
[2016-04-29] MEDS: ACETAMINOPHEN/HYDROcodone 325 MG/5 MG TAB PEG SCH ×3 (05:31→17:01)
[2016-04-29] MEDS: ACETIC ACID 0.25% SOLN 1000 ML IRR BTL IRRIGATION SCH ×3 (05:49→22:00)
[2016-04-29] MEDS: INSULIN ASPART SUPPLEMENTAL SCALE SQ SCH ×4 (05:50→21:46)
[2016-04-29] MEDS: RESP: LEVALBUTEROL HYDROCHLORIDE 0.63 MG/3 ML NEB (SCH) NEB ×3 (08:22→23:57)
[2016-04-29] MEDS: ALBUMIN HUMAN 25% 12.5 GM/50 ML BAGP IV SCH (09:33)
[2016-04-29] MEDS: RANITIDINE HCL SYRUP 150 MG/10 ML UDC PO SCH (09:34)
[2016-04-29] MEDS: SENNOSIDES SYRUP 8.8 MG/5 ML CUP TUBE SCH (09:34)
[2016-04-29] MEDS: levETIRAcetam 500 MG/5 ML UDC TUBE SCH ×2 (09:34→21:43)
[2016-04-29] MEDS: DILTIAZEM HCL 90 MG TAB PEG SCH ×4 (09:35→21:44)
[2016-04-29] MEDS: METOPROLOL TARTRATE 50 MG TAB PO SCH ×2 (09:35→21:45)
[2016-04-29] MEDS: ARTIFICIAL TEARS OPTH OINT 3.5 APPLIC/3.5 GM TUBO EACH EYE SCH ×2 (09:35→21:45)
[2016-04-29] MEDS: LACTULOSE SYRUP 20 GM/30 ML CUP PEG SCH (09:35)
[2016-04-29] MEDS: LACTOBACILLUS ACIDOPHILUS TAB PEG SCH ×2 (09:35→21:43)
[2016-04-29] MEDS: FUROSEMIDE 20 MG/2 ML VIAL IV PUSH SCH (09:35)
[2016-04-29] MEDS: POTASSIUM CHLORIDE 25 MEQ EFFERVESCENT TAB TUBE SCH ×2 (09:35→21:42)
[2016-04-29] MEDS: NYSTATIN 100,000 U/GM PWD 15 GM BTL TOPICAL SCH ×2 (09:36→21:46)
[2016-04-29] MEDS: cefTRIAXone INJ 2,000 MG in SODIUM CHLORIDE 0.9% INJ 100 ML IV SCH (11:40)
--- NOTE | 2016-04-29 16:15 | HHI.PR ---
Subjective Remarks seen with family patient tolerating tube feedings Objective Vitals Vital Signs Date Time Temp Pulse Resp B/P Pulse Ox O2 Delivery O2 Flow Rate FiO2 04/29/16 12:40 96.4 103 18 141/77 98 04/29/16 08:33 100 T-piece 28 04/29/16 08:00 96.7 90 18 120/68 100 04/29/16 07:36 93 04/29/16 05:30 98.3 90 22 107/60 100 04/29/16 00:23 98.0 77 22 108/63 100 04/28/16 23:41 99 T-piece 5.00 28 04/28/16 23:41 99 T-piece 5.00 28 04/28/16 21:40 98 T-Piece 35 04/28/16 20:55 100 T-piece 28 04/28/16 20:55 100 T-piece 28 04/28/16 20:06 96 04/28/16 20:00 97.5 97 22 128/73 95 I/O 04/28/16 04/28/16 04/28/16 04/29/16 04/29/16 04/29/16 07:00 15:00 23:00 07:00 15:00 23:00 Output Total 750 ml 1050 ml 350 ml 550 ml 1150 ml Balance -750 ml -1050 ml -350 ml -550 ml -1150 ml Output Urine Total 750 ml 1050 ml 350 ml 550 ml 1150 ml # Bowel Movements 1 0 0 Result Diagram: 04/25/16 0621 04/26/16 0616 Imaging Last Impressions Chest X-Ray 04/25/16 0000 Signed Impressions: Service Date/Time: April 18:10 - CONCLUSION: Suspected basilar atelectasis. Glen Blanco MD Abdomen/Pelvis CT 04/12/16 0000 Signed Impressions: Service Date/Time: Tuesday, April 12, 2016 20:52 - CONCLUSION: 1. 6.4 cm necrotic mass or abscess in the soft tissues posteriorly just below the sacrum associated with some bony destructive change of the lower most sacrum and coccyx with inflammatory changes extending into the ischiorectal fossa and into the presacral retroperitoneum predominantly on the left side. There is associated fairly marked mural thickening of the anal verge and rectum. 2. There is gastrostomy and Lopez catheter present. Stable abdominal aortic aneurysm. Durga Dotson MD Head Magnetic Resonance Angiography 03/05/16 0000 Signed Impressions: Service Date/Time: Saturday, March 05, 2016 09:26 - CONCLUSION: Persistent high-grade subtotal occlusive stenotic lesions in the distal right vertebral artery and proximal basilar artery with significant improvement in flow and recanalization following initial presentation of thrombosis. Stable interstitial circulation without significant stenosis. 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 There is decreasing restricted diffusion and increasing loss of volume characteristic of a subacute to chronic infarct. No evidence of acute infarct, acute hemorrhage mass or edema. Ernesto Kulkarni MD Head CT 01/16/16 0000 Signed Impressions: Service Date/Time: Saturday, January 16, 2016 10:51 - CONCLUSION: No extensive low density in the brainstem colin more prominent in the right the left extending into the right middle cerebellar peduncle consistent with brainstem infarct nonhemorrhagic acute Wellington West MD Abdomen X-Ray 01/14/16 0000 Signed Impressions: Service Date/Time: Thursday, January 14, 2016 10:19 - CONCLUSION: Moderate stool; otherwise, negative. 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 No evidence of carotid stenosis. Glen Zamora MD Head/Brain Mag Res Venography 12/22/15 0000 Signed Impressions: Service Date/Time: Tuesday, December 22, 2015 09:22 - CONCLUSION: Normal MRV. Jonel Jones Jr., MD Objective Remarks eyes open, no purposeful movements pupils equal, anicteric mild facial asymmetry no gag reflex neck supple no rigidity, tracheostomy in place lungs- no rales or wheezes regular rhythm abdomen- soft, good bowel sounds, PEG site- no signs of erythema lopez in place back wound- wound packing in place extremities- generalized swelling- improving Procedures 01/02/16 PEG placement 01/02/16 tracheostomy Date of Insertion: Mar 07, 2016 A/P Problem List: (1) CVA (cerebral vascular accident) ICD Code: I63.9 Status: Acute (2) A-fib ICD Code: I48.91 Status: Chronic (3) DM (diabetes mellitus) ICD Code: E11.9 Status: Chronic Assessment and Plan 60-year-old male with: -CVA (cerebral vascular accident): 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 Significant residual cognitive deficit. -Nonverbal at this time; appears to be in a locked in state. Poor [facility] prognosis. 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 -Continue Keppra and Coumadin- Palliative care following. Monitor Keppra level periodically. - evaluated by neurology; continue Keppra -cont Paxil as per family request. -Large sacral necrotic mass (6.[address] posterior to sacrum) with destruction of coccyx - stage IV decubitus ulcer versus hematoma vs possible destructive mass - s/p plastics eval (I discussed the patient previously with Dr. Yoder) who has now signed off. He recommended consulting colorectal to see if they would be able to address the area. - Dr. Chawla was brick mason for colorectal and recommended palliative care consultation also recommended if bleeding is a concern to consider to consult interventional radiology to see if embolization could provide hemostasis rather than a large surgery -CRS consult consulted - for evaluation if will benefit from diverting colostomy - - seen by Dr. Mars- vascular surgery - - the wound and the patients overall poor prognosis. hospice would be appropriate. Palliative care is following. cultures +klebsiella. pt on abx per ID. no anticoagulation due to bleeding from the wound. cont wound care (packing daily). Discussed with family, including patient's cousin who is a physician in [place]. Dr. Gonzalez offered to discuss with plastic surgery getting a tissue diagnosis to rule out cancer if it would put the patient's family at ease, however pursuing aggressive surgery overlooks the patient's overall poor neurologic prognosis. The patient would not be likely to heal from this large wound given his immobility. - monitor CBC- and H stable - d/w family at bedside- wants to pursue aggressive- they are not ready for hospice at this point - Palliative care involved - 04/23- made alternative code -Fluid overload/edema with positive fluid balance -generalized edema- continues to imrprove start lasix 20 mg IV daily, with albumin, k-lyte 25 meq PEG BID, monitor I/O . ff BMP ff BMP Respiratory failure: Secondary to CVA. Patient is status post tracheostomy. Pulmonary following. on Fi02 35%- d/w RT taper to 28% as toelrated - Levsin PRN secretions. needs suctioning renew duoneb q 6 Xopenex q 2 prn Anemia of acute blood loss - secondary to bleeding from the wound. S/P transfuse 2 units pRBCs ff H and H H and H stable CRS will evaluate patient -GI/Nutrition: Previous PEG tube exchanged by GI at bedside 03/30/2016. dietary ff. -Depression: Continue Paxil. -A-fib: rate better controlled- on telmetry- 04/28- in SR continue Lopressor, cardizem increased 90 mg qid. NO coumadin due to significant bleeding from the sacral wound. -UTI: Resolved. Urine culture with Klebsiella on 01/31 and repeat on 03/06 negative. -Coccyx pressure ulcer- cont wound care. -History of Non-Hodgkin lymphoma: s/p brain biopsy on December 13, by Neurosurgery, Dr. Marin, Pathology consistent with acute infarct without evidence of lymphoma -Seen by Oncology, Dr. Whyte, who has signed off -DM: Hemoglobin A1c is 7.0. Continue Levemir with sliding scale insulin- monitor and adjust the regimen as needed. - MRSA in the sputum, tracheobronchitis. Chest x-ray 04/05 was clear. completed course of zyvox. mild hypokalemia; replaced. DVT prophylaxis: no coumadin due to wound bleeding. SCDs. Problem Qualifiers (1) DM (diabetes mellitus): Qualified Code: E11.9 - Type 2 diabetes mellitus without complications Soco Pickett MD Apr 29, 2016 16:15
[2016-04-29] MEDS: PARoxetine HCL SUSP 20 MG/10 ML UDC PEG SCH (18:10)
[2016-04-29] MEDS: INSULIN DETEMIR 100 UNITS/ML VIAL SQ SCH (21:43)
[2016-04-30] VITALS (8 sets, daily range): BP systolic 103–147; BP diastolic 64–87; PULSE 72–97; RESP 18–24; TEMP 96–99.4; O2SAT 95–100
[2016-04-30] MEDS: ACETAMINOPHEN/HYDROcodone 325 MG/5 MG TAB PEG SCH ×3 (01:58→14:09)
[2016-04-30] MEDS: FREE WATER TUBE SCH ×6 (04:00→20:00)
[2016-04-30] MEDS: INSULIN ASPART SUPPLEMENTAL SCALE SQ SCH ×4 (06:05→21:10)
[2016-04-30] MEDS: ACETIC ACID 0.25% SOLN 1000 ML IRR BTL IRRIGATION SCH ×3 (06:05→21:11)
[2016-04-30] MEDS: RESP: LEVALBUTEROL HYDROCHLORIDE 0.63 MG/3 ML NEB (SCH) NEB ×3 (08:09→23:21)
[2016-04-30] MEDS: HYOSCYAMINE 0.125 MG TAB G-TUBE PRN (08:30)
[2016-04-30] MEDS: POTASSIUM CHLORIDE 25 MEQ EFFERVESCENT TAB TUBE SCH ×2 (08:46→21:11)
[2016-04-30] MEDS: LACTULOSE SYRUP 20 GM/30 ML CUP PEG SCH (08:47)
[2016-04-30] MEDS: SENNOSIDES SYRUP 8.8 MG/5 ML CUP TUBE SCH (08:48)
[2016-04-30] MEDS: levETIRAcetam 500 MG/5 ML UDC TUBE SCH ×2 (08:48→21:09)
[2016-04-30] MEDS: RANITIDINE HCL SYRUP 150 MG/10 ML UDC PO SCH (08:48)
[2016-04-30] MEDS: DILTIAZEM HCL 90 MG TAB PEG SCH ×4 (08:49→21:09)
[2016-04-30] MEDS: LACTOBACILLUS ACIDOPHILUS TAB PEG SCH ×2 (08:49→21:09)
[2016-04-30] MEDS: FUROSEMIDE 20 MG/2 ML VIAL IV PUSH SCH (08:49)
[2016-04-30] MEDS: METOPROLOL TARTRATE 50 MG TAB PO SCH ×2 (08:49→21:09)
[2016-04-30] MEDS: NYSTATIN 100,000 U/GM PWD 15 GM BTL TOPICAL SCH ×2 (08:50→21:10)
[2016-04-30] MEDS: ALBUMIN HUMAN 25% 12.5 GM/50 ML BAGP IV SCH (08:50)
[2016-04-30] MEDS: ARTIFICIAL TEARS OPTH OINT 3.5 APPLIC/3.5 GM TUBO EACH EYE SCH ×2 (08:50→21:10)
[2016-04-30 10:18] LABS: MEAN CELL VOLUME 76.7 FL (80.0-100.0); MEAN CORPUSCULAR HGB CONC 32.6 % (32.0-36.0); PLATELET COUNT 297 TH/MM3 (150-450); RED BLOOD COUNT 3.65 MIL/MM3 (4.50-5.90); RED CELL DISTRIBUTION WIDTH 21.4 % (11.6-17.2); REVIEW FLAG FINAL; WHITE BLOOD COUNT 5.8 TH/MM3 (4.0-11.0)
[2016-04-30] MEDS: cefTRIAXone INJ 2,000 MG in SODIUM CHLORIDE 0.9% INJ 100 ML IV SCH (14:09)
--- NOTE | 2016-04-30 14:42 | HHI.GIFU ---
Subjective Remarks Patient is resting in bed, surrounded by family. Tolerating TF okay, no issues with the PEG tube, s/p exchange on 04/29 Objective Vitals I&O Vital Signs Date Time Temp Pulse Resp B/P Pulse Ox O2 Delivery O2 Flow Rate FiO2 04/30/16 12:00 97.2 83 22 116/69 99 04/30/16 08:12 98 T-piece 28 04/30/16 08:12 97 T-piece 28 04/30/16 08:00 96.3 87 22 118/69 100 04/30/16 04:00 97.0 80 18 140/73 95 04/30/16 00:00 97.8 72 20 147/87 98 04/30/16 00:00 6.00 35 04/29/16 19:30 100 T-piece 5.00 28 04/29/16 19:30 100 T-piece 5.00 28 04/29/16 19:00 95.5 70 20 145/78 98 04/29/16 16:00 97.6 89 18 113/68 98 I/O 04/29/16 04/29/16 04/29/16 04/30/16 04/30/16 04/30/16 07:00 15:00 23:00 07:00 15:00 23:00 Output Total 550 ml 1150 ml 850 ml Balance -550 ml -1150 ml -850 ml Output Urine Total 550 ml 1150 ml 850 ml Bladder Scan Volume Amount 392 ml # Bowel Movements 0 Laboratory Laboratory Tests Test 04/30/16 09:11 White Blood Count 5.8 Red Blood Count 3.65 Hemoglobin 9.1 Hematocrit 28.0 Mean Corpuscular Volume 76.7 Mean Corpuscular Hemoglobin 25.0 Mean Corpuscular Hemoglobin 32.6 Concent Red Cell Distribution Width 21.4 Platelet Count 297 Mean Platelet Volume 8.0 Imaging Last Impressions Chest X-Ray 04/25/16 0000 Signed Impressions: Service Date/Time: April 18:10 - CONCLUSION: Suspected basilar atelectasis. Glen Blanco MD Abdomen/Pelvis CT 04/12/16 0000 Signed Impressions: Service Date/Time: Tuesday, April 12, 2016 20:52 - CONCLUSION: 1. 6.4 cm necrotic mass or abscess in the soft tissues posteriorly just below the sacrum associated with some bony destructive change of the lower most sacrum and coccyx with inflammatory changes extending into the ischiorectal fossa and into the presacral retroperitoneum predominantly on the left side. There is associated fairly marked mural thickening of the anal verge and rectum. 2. There is gastrostomy and Arevalo catheter present. Stable abdominal aortic aneurysm. Durga Dotson MD Head Magnetic Resonance Angiography 03/05/16 0000 Signed Impressions: Service Date/Time: Saturday, March 05, 2016 09:26 - CONCLUSION: Persistent high-grade subtotal occlusive stenotic lesions in the distal right vertebral artery and proximal basilar artery with significant improvement in flow and recanalization following initial presentation of thrombosis. Stable interstitial circulation without significant stenosis. 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 There is decreasing restricted diffusion and increasing loss of volume characteristic of a subacute to chronic infarct. No evidence of acute infarct, acute hemorrhage mass or edema. Ernesto Kulkarni MD Head CT 01/16/16 0000 Signed Impressions: Service Date/Time: Saturday, January 16, 2016 10:51 - CONCLUSION: No extensive low density in the brainstem colin more prominent in the right the left extending into the right middle cerebellar peduncle consistent with brainstem infarct nonhemorrhagic acute Wellington West MD Abdomen X-Ray 01/14/16 0000 Signed Impressions: Service Date/Time: Thursday, January 14, 2016 10:19 - CONCLUSION: Moderate stool; otherwise, negative. 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 No evidence of carotid stenosis. Glen Zamora MD Head/Brain Mag Res Venography 12/22/15 0000 Signed Impressions: Service Date/Time: Tuesday, December 22, 2015 09:22 - CONCLUSION: Normal MRV. Jonel Jones Jr., MD Physical Exam HEENT: Normocephalic; atraumatic; no jaundice. CHEST: Scattered rhonchi. Tracheostomy, to TBar CARDIAC: RRR. ABDOMEN: Soft, round, nondistended, nontender; no hepatosplenomegaly; bowel sounds are present in all four quadrants. PEG tube site without redness, swelling,drainage EXTREMITIES: Generalized edema. SKIN: Normal; no rash; no jaundice. STATISTICAL METHODS PROFESSOR: Resting with eyes open, does not follow commands Assessment and Plan Plan ASSESSMENT: - Dysphagia, FEN. 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 S/P EGD with PEG tube placement (01/01). This was previously replaced on 02/11 for clogged tube without difficulty. S/ P PEG tube exchange with #20 replacement tube without difficulty on 04/29/16 PLAN: - S/P PEG tube exchange- tolerated well - Tolerating TF okay - GI will sign off, please reconsult as needed - Pt seen and examined by Dr. Angel and myself and this note is written on his behalf Yudi Bourgeois Apr 30, 2016 14:42
--- NOTE | 2016-04-30 16:57 | HHI.HCPN ---
Reason for visit a. To assist with evaluation and management of symptoms including: dyspnea, encephalopathy, depression b. To assist medical decision maker(s) with: better understanding of current medical conditions; weighing benefits/burdens of medical treatment options; making medical treatment decisions. Subjective/Interval History Pt seen today to follow up with questions received in phone call from significant other. Phone call received before I was on unit to see patient spoke with her regarding current assessments in EMR, [facility], patient seen later in the day. Leanne has questions regarding addition of pulmonary medications, requests a list of all his pulmonary medications or things that he is on to help breathing. I review with her that he is on Xopenex nebulizers as well as Levsin which is prn; and that he is not on any other scheduled pulmonary medications. He has concerns that Levsin could be potentially overused and that in the past patient has had with patient being too dry; I explored with her that the patient has not had frequent doses as per charting in [facility] and that was to be used only for excessive pulmonary secretions (pt received one dose this am, last dose 04/28). Patient otherwise with no significant changes. Plastic surgery has again been reconsulted by pulmonology as well as colorectal surgery to again evaluate if there is anything that can be done for patient's sacral wound. CBC is stable. GI changed out PEG tube today due to concerns for occlusion, new PEG tube functioning well tolerating tube feeding. Patient examined in room with mother and another family member at bedside. She expresses concern that patient is not improving, she indicates that she prays for him every day. I gently explore with her that he will likely continue to fluctuate and we do not expect him to show any further clinical improvement. Discussed with primary nurse--she indicates patient earlier today was coughing frequently and was requiring frequent suction for watery secretions, she gave 1 prn dose of Levsin with improvement. History brought forward from initial consult by Rita MOCTEZUMA on 01/10/16: This 59-year-old patient was admitted on 12/21/15 via the ED for facial drooping. ED physician notes that patient and patients are poor historians, EMS reported the could not provide good timelines to them. Patient also reported headache, difficulty ambulating. He had known history of recent findings of mass in the brain. During ED course had deterioration of clinical condition and able to protect his airway, unable to follow commands patient was intubated and CT brain obtained. He was admitted for further evaluation and management to the ICU. Lumber Bearer was consulted and following patient. Pathology on recent brain biopsy (12/13) still pending. CLINICAL/HOSPITAL COURSE: * CT brain= no focal or acute intracranial hemorrhage. New area decreased density in left occipital lobe suggestive of recent nonhemorrhagic infarct, decreased density in previously noted right occipital lobe has increased in size * Brain MRI = new area of restricted diffusion within left occipital lobe suggesting acute infarct. Interval enlargement of the area of restricted diffusion within right occipital lobe suggesting probable extension of right occipital and started on. Underlying enhancement of right occipital lobe is slightly worse than the previous exam and nonspecific. Biopsy has been performed and results are pending. Tiny focal area of restricted diffusion within right cerebellar hemisphere consistent with probable acute/subacute lacunar infarct. Signal abnormality in the SWI sequence within the right occipital lobe suggesting some hemorrhage in biopsy bed. No midline shift or extra-axial fluid collections. * CXR= no acute cardiopulmonary disease * -Neurology consulted, ordered MRA to look for vertebrobasilar stenosis, echo done last admission notes normal EF with normal valves and normal left atrial size. EEG also ordered. MR venogram ordered. EEG= abnormal study consistent with her encephalopathy. MRV indicated basilar occlusion; neurology notes discussion with family regarding chemical code only, also notes discussion regarding risks associated with the anticoagulates, was discussed with radiologist/INR recommended not helpful to extract basilar clot as this could result in patient's . It was felt the colin was infarcted. Further neurology notes "he could be locked in", is acting as if colin is infarcted. * Oncology known to patient also consulted for non-Hodgkin's lymphoma: Dr Whyte documents that there was no evidence of residual or recurrent disease on CT scans of chest, abdomen, pelvis done in October and November of this year. Pathology was still pending, had been sent to [facility] for second opinion. No acute oncology interventions recommended at that time, will follow. * 12/23 - 12/25 febrile. CPAP trials. Remains on vent off of sedation. Withdrawing to pain. Repeat brain MRI= evolving brainstem stroke. Neurology notes extensive discussion with family, notes discussion the patient is locked in but fully aware, family would like to see help patient does over the next 3 months. 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 Biopsy brain lesion appears consistent with acute infarct no lymphoma. Family desires ongoing aggressive measures, will proceed with tracheostomy. Sputum culture positive sensitive Klebsiella. * 01/01 tracheostomy, PEG tube placement * 01/04 trach collar trials, alternating with T piece. Low-grade fever 100.5. CXR = mild bibasilar atelectasis. Neuro: Spontaneously opening eyes, looking up / down, directionally to commands. * 01/07 still "locked in " , transferred off ICU to regular floor. * 01/08 pulmonology consulted-not CXR clear no evidence of pulmonary infection. He may have some underlying COPD recommends continued aerosol treatments. Further notes long discussion with family at bedside regarding tracheostomy, long-term use of trach until patient able to protect his airway, no further recommendations. Palliative care consulted to assist with clarification of goals of treatment. Advance Directives Living Will: Never completed Health Care Surrogate: Never completed Objective Vital Signs Date Time Temp Pulse Resp B/P Pulse Ox O2 Delivery O2 Flow Rate FiO2 04/30/16 16:03 99 T-piece 6.00 28 04/30/16 16:03 99 T-piece 6.00 28 04/30/16 16:00 96.0 78 22 103/64 97 04/30/16 12:00 97.2 83 22 116/69 99 04/30/16 08:12 98 T-piece 28 04/30/16 08:12 97 T-piece 28 04/30/16 08:00 96.3 87 22 118/69 100 04/30/16 04:00 97.0 80 18 140/73 95 04/30/16 00:00 97.8 72 20 147/87 98 04/30/16 00:00 6.00 35 04/29/16 19:30 100 T-piece 5.00 28 04/29/16 19:30 100 T-piece 5.00 28 04/29/16 19:00 95.5 70 20 145/78 98 Intake & Output 04/30/16 04/30/16 07:00 19:00 Output Total 850 ml 1000 ml Balance -850 ml -1000 ml Output Urine Total 850 ml 1000 ml Bladder Scan Volume Amount 392 ml # Bowel Movements 2 Physical Exam CONSTITUTIONAL/GENERAL: This is an adequately nourished patient, lethargic eyes closed does not arouse for exam. TUBES/LINES/DRAINS: Arevalo catheter, PEG tube, tracheostomy, SCDs, heel protection boots, reported ongoing wound to sacrum though I did not visualize. Skin temperature appropriate. Not diaphoretic. CARDIOVASCULAR: Regular rate and rhythm without murmurs.Peripheral pulses symmetric. Trace peripheral edema upper extremities. RESPIRATORY/CHEST: Tracheostomy midline, no symptoms of problems around site. Symmetric, unlabored respirations. + moist cough. T piece, 28% FiO2. Lung sounds clear. Breath sounds equal bilaterally. GASTROINTESTINAL: Abdomen soft, no apparent tenderness, nondistended. No palpable masses. Bowel sounds normoactive. tube feed infusing via PEG. MUSCULOSKELETAL: Extremities without clubbing, cyanosis. Trace edema upper extremities No joint effusion noted. No mottling or clubbing.+ Muscle atrophy to all 4 extremities. NEUROLOGICAL: Lethargic, eyes closed. Does not respond my exam. PSYCHIATRIC: Difficult to fully assess due to clinical condition. no evident anxiety . Diagnostic Tests Laboratory Laboratory Tests Test 04/30/16 09:11 White Blood Count 5.8 TH/MM3 (4.0-11.0) Red Blood Count 3.65 MIL/MM3 (4.50-5.90) Hemoglobin 9.1 GM/DL (13.0-17.0) Hematocrit 28.0 % (39.0-51.0) Mean Corpuscular Volume 76.7 FL (80.0-100.0) Mean Corpuscular Hemoglobin 25.0 PG (27.0-34.0) Mean Corpuscular Hemoglobin 32.6 % Concent (32.0-36.0) Red Cell Distribution Width 21.4 % (11.6-17.2) Platelet Count 297 TH/MM3 (150-450) Mean Platelet Volume 8.0 FL (7.0-11.0) Result Diagram: 04/30/16 0911 04/26/16 0616 Procedures * 01/01 tracheostomy, PEG tube placement . 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; EEG indicates encephalopathy, neuro following patient felt to be in a "locked-in "state (2) Non-Hodgkin lymphoma Comment: -In remission status post chemotherapy completed May 2015 (3) Acute respiratory failure Comment: Pulmonology following, medical management (4) A-fib (5) Status post stereotactic brain biopsy (6) Brain lesion Comment: Status post biopsy November 2015; pathology consistent with acute infarct without evidence of lymphoma (7) DM (diabetes mellitus) Symptom Scale: (1) Dysphagia Comment: Status post significant CVA, has had PEG tube placed- no improvement per ongoing ST eval (2) Dyspnea Comment: Respiratory failure secondary to CVA, status post tracheostomy, pulmonary following (3) Encephalopathy Comment: Significant CVA, "locked-in" state -- though pt not noted with consistent attempts to communicate. ? vegetative (4) Malnutrition Comment: Status post PEG tube placement. Episode of emesis yesterday, currently tolerating tube feeding without issue (5) Depression Comment: At risk for related to "locked in status", communication difficulties , situational, but would likely benefit from anti-depressant Pertinent Non-Medical Issues * Psychosocial:Mr. Flores is originally from [place]. He moved to the around 35 years ago, first to [place] and later to [place]. He is not legally but remains with his ex-, Leanne. They have been together for 31+ years and have three children together: Leanne, Gerald, and Ginny. Gerald is currently in [facility] for work. Mr. Flores has 2 brothers and 7 sisters. His father is of old age. His mother is alive and was living with the patient. Greatly enjoys his family. Retired. 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 * Spiritual: * Legal:Patient due to clinical condition is currently unable to participate in medical decision making. Not clear if or when he will regain this ability. Family does not believe he has completed advance directives. per [place] Statutes, medical proxy decision making would fall to the majority of adult children, as Mr. Flores is not legally . * Ethical issues impacting care: Important Contacts Leanne, daughter: [phone] Ginny, daughter: [phone] Gerald Flores, son: currently in [facility] for work but has communication with his siblings. Leanne, ex-: [phone] Prognosis This patient has had 20 day hospital course thus far, admitted on 62 for a large brainstem infarct, bilateral occipital infarcts. He has subsequently had ongoing encephalopathy and severe communication limitations, neurology feels he is in a "locked-in "state. He has suffered from respiratory failure likely secondary to significant CVA. Appears he should be able to survive this acute hospitalization, however not clear when or if he will regain ability to communicate, based on current assessments patient will require long-term care placement. He will remain high risk for potential competition/setbacks due to immobile status including infections, DVT etc. . Code Status: Full Code Plan * GOALS: Very aggressive. See family conference component on initial consult for additional detail. Meeting In summary: Initially they had many questions regarding admission and biopsy which occurred in November, they ask about differentials and decision making leading to the biopsy, and have many concerns regarding that clinical course--advised that I could not speak to any of those questions or processes as I was not involved in his care and decision making at that time, recommend them to direct those specific questions to those initial providers which provided those services. Otherwise review of conditions, goals as detailed in "issues discussed". Family expresses that Mr. Flores did remarkably well following his chemotherapy for lymphoma just last year, and that he had been doing fine until recent issue in November. They endorsed that he is a fighter, that he is a very optimistic person, and that they are certain he is "in there "and would want to continue fighting for whatever recovery he might have." They have many questions regarding rehabilitation services and placement as well as financial coverage for these services, advised that case management could assist them with the various applications which already in process, but that any placement would depend on funding, or alternatively [facility] placement which is up to any individual institution. They would like to maximize PT/OT/ST ongoing while here in the hospital. They also request courtesy consult of to follow him for pulmonary as he is known to the family through their mormonism. * 04/30/16- plastic surgery, colorectal surgery re-consultations pending. Call from significant other Leanne today with concerns regarding pulmonary medications, I did review with nursing prn use. All questions answered to sig other. Goals remain aggressive. * CODE STATUSfull code * Symptoms: == Dysphagia--Status post significant CVA, has had PEG tube placed; no improvement per ST following --trial with a passy mikey valve, patient with no response or attempt to verbalize--ST signed off == Dyspnea --Respiratory failure secondary to CVA, status post tracheostomy, pulmonary following; currently no apparent distress/ O2 sats / O2 requirements stable--O2 sat stable == Encephalopathy--Significant CVA, "locked-in" state; follow-up MRI with no significant changes; family endorses patient continues to have limited communication via blinks and eye motion-- does not consistently attempt to communicate w therapies, appears vegetative == Malnutrition--Status post PEG tube placement. currently tolerating TF; having bowel movements,- s/p G tube replacement today == depression/anxiety -- At risk for related to "locked in status", communication difficulties, situational, but would likely benefit from anti- depressant. Family reports tearful at times when they talk to him. prev. started on celexa, then d/c per family request. On Paxil per family request. previously tearful at times during exam. No distress observed or reported today , ? Pain versus emotional distress. Will cont to evaluate. == Pain: Tearful,? At times blinks/looks up for yes to pain per family, nursing // nursing to administer PRN [place]. Potential sources would include large sacral wound, bedbound status. Nursing has expressed that they use PRN sparingly as family has concerns that too much will contribute to his lethargy/ decreased alertness. Family last week requested [id number] medication for comfort, this was added, patient appearing comfortable. Additionally prn Ativan added for anxiety that may be associated with pain. * Palliative care will continue to follow during hospital course as condition evolves, to assist patient/decision-maker with understanding of medical conditions, weighing benefits/burdens of treatment options, for clarification of goals of treatment. Additionally will assist with any symptoms of palliative concern Tiara Colin Apr 30, 2016 16:57
[2016-04-30] MEDS: PARoxetine HCL SUSP 20 MG/10 ML UDC PEG SCH (17:27)
--- NOTE | 2016-04-30 19:15 | HHI.PR ---
Subjective Remarks tolerating tube feedings status unchanged Objective Vitals Vital Signs Date Time Temp Pulse Resp B/P Pulse Ox O2 Delivery O2 Flow Rate FiO2 04/30/16 16:03 99 T-piece 6.00 28 04/30/16 16:03 99 T-piece 6.00 28 04/30/16 16:00 96.0 78 22 103/64 97 04/30/16 12:00 97.2 83 22 116/69 99 04/30/16 08:12 98 T-piece 28 04/30/16 08:12 97 T-piece 28 04/30/16 08:00 96.3 87 22 118/69 100 04/30/16 04:00 97.0 80 18 140/73 95 04/30/16 00:00 97.8 72 20 147/87 98 04/30/16 00:00 6.00 35 04/29/16 19:30 100 T-piece 5.00 28 04/29/16 19:30 100 T-piece 5.00 28 I/O 04/29/16 04/29/16 04/29/16 04/30/16 04/30/16 04/30/16 06:59 14:59 22:59 06:59 14:59 22:59 Output Total 550 ml 1150 ml 850 ml 1000 ml Balance -550 ml -1150 ml -850 ml -1000 ml Output Urine Total 550 ml 1150 ml 850 ml 1000 ml Bladder Scan Volume Amount 392 ml # Bowel Movements 0 2 Result Diagram: 04/30/16 0911 04/26/16 0616 Imaging Last Impressions Chest X-Ray 04/25/16 0000 Signed Impressions: Service Date/Time: April 18:10 - CONCLUSION: Suspected basilar atelectasis. Glen Blanco MD Abdomen/Pelvis CT 04/12/16 0000 Signed Impressions: Service Date/Time: Tuesday, April 12, 2016 20:52 - CONCLUSION: 1. 6.4 cm necrotic mass or abscess in the soft tissues posteriorly just below the sacrum associated with some bony destructive change of the lower most sacrum and coccyx with inflammatory changes extending into the ischiorectal fossa and into the presacral retroperitoneum predominantly on the left side. There is associated fairly marked mural thickening of the anal verge and rectum. 2. There is gastrostomy and Lopez catheter present. Stable abdominal aortic aneurysm. Durga Dotson MD Head Magnetic Resonance Angiography 03/05/16 0000 Signed Impressions: Service Date/Time: Saturday, March 05, 2016 09:26 - CONCLUSION: Persistent high-grade subtotal occlusive stenotic lesions in the distal right vertebral artery and proximal basilar artery with significant improvement in flow and recanalization following initial presentation of thrombosis. Stable interstitial circulation without significant stenosis. 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 There is decreasing restricted diffusion and increasing loss of volume characteristic of a subacute to chronic infarct. No evidence of acute infarct, acute hemorrhage mass or edema. Ernesto Kulkarni MD Head CT 01/16/16 0000 Signed Impressions: Service Date/Time: Saturday, January 16, 2016 10:51 - CONCLUSION: No extensive low density in the brainstem colin more prominent in the right the left extending into the right middle cerebellar peduncle consistent with brainstem infarct nonhemorrhagic acute Wellington West MD Abdomen X-Ray 01/14/16 0000 Signed Impressions: Service Date/Time: Thursday, January 14, 2016 10:19 - CONCLUSION: Moderate stool; otherwise, negative. Octavio Ramírze MD FACR Neck Magnetic Resonance Angiography 12/22/15 1445 Signed Impressions: Service Date/Time: Tuesday, December 22, 2015 09:22 - CONCLUSION: Variant origin of the left vertebral artery from the aortic arch. No evidence of carotid stenosis. Glen Zamora MD Head/Brain Mag Res Venography 12/22/15 0000 Signed Impressions: Service Date/Time: Tuesday, December 22, 2015 09:22 - CONCLUSION: Normal MRV. Jonel Jones Jr., MD Objective Remarks eyes open, no purposeful movements pupils equal, anicteric mild facial asymmetry no gag reflex neck supple no rigidity, tracheostomy in place lungs- no rales or wheezes regular rhythm abdomen- soft, good bowel sounds, PEG site- no signs of erythema lopez in place back wound- wound packing in place extremities- generalized swelling- improving Procedures 01/02/16 PEG placement 01/02/16 tracheostomy Date of Insertion: Mar 07, 2016 A/P Problem List: (1) CVA (cerebral vascular accident) ICD Code: I63.9 Status: Acute (2) A-fib ICD Code: I48.91 Status: Chronic (3) DM (diabetes mellitus) ICD Code: E11.9 Status: Chronic Assessment and Plan 60-year-old male with: -CVA (cerebral vascular accident): 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 Significant residual cognitive deficit. -Nonverbal at this time; appears to be in a locked in state. 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 -Continue Keppra and Coumadin- Palliative care following. Monitor Keppra level periodically. - evaluated by neurology; continue Keppra -cont Paxil as per family request. -Large sacral necrotic mass (6.[address] posterior to sacrum) with destruction of coccyx - stage IV decubitus ulcer versus hematoma vs possible destructive mass - s/p plastics eval (I discussed the patient previously with Dr. Yoder) who has now signed off. He recommended consulting colorectal to see if they would be able to address the area. - Dr. Chawla was category consultant for colorectal and recommended palliative care consultation also recommended if bleeding is a concern to consider to consult interventional radiology to see if embolization could provide hemostasis rather than a large surgery -CRS consult consulted - for evaluation if will benefit from diverting colostomy - - seen by Dr. Mars- vascular surgery - - the wound and the patients overall poor prognosis. hospice would be appropriate. Palliative care is following. cultures +klebsiella. pt on abx per ID. no anticoagulation due to bleeding from the wound. cont wound care (packing daily). Discussed with family, including patient's cousin who is a physician in [place]. Dr. Gonzalez offered to discuss with plastic surgery getting a tissue diagnosis to rule out cancer if it would put the patient's family at ease, however pursuing aggressive surgery overlooks the patient's overall poor neurologic prognosis. The patient would not be likely to heal from this large wound given his immobility. - monitor CBC- and H stable - d/w family at bedside- wants to pursue aggressive- they are not ready for hospice at this point - Palliative care involved - 10/4- made alternative code -Fluid overload/edema with positive fluid balance -generalized edema- continues to imrprove start lasix 20 mg IV daily, with albumin, k-lyte 25 meq PEG BID, monitor I/O . ff BMP ff BMP Respiratory failure: Secondary to CVA. Patient is status post tracheostomy. Pulmonary following. on Fi02 35%- d/w RT taper to 28% as toelrated - Levsin PRN secretions. needs suctioning renew duoneb q 6 Xopenex q 2 prn Anemia of acute blood loss - secondary to bleeding from the wound. S/P transfuse 2 units pRBCs ff H and H H and H stable CRS will evaluate patient -GI/Nutrition: Previous PEG tube exchanged by GI at bedside 03/30/2016. dietary ff. -Depression: Continue Paxil. -A-fib: rate better controlled- on telmetry- 04/28- in SR continue Lopressor, cardizem 90 mg qid. NO coumadin due to significant bleeding from the sacral wound. -UTI: Resolved. Urine culture with Klebsiella on 01/31 and repeat on 03/06 negative. -Coccyx pressure ulcer- cont wound care. -History of Non-Hodgkin lymphoma: s/p brain biopsy on December 13, by Neurosurgery, Dr. Marin, Pathology consistent with acute infarct without evidence of lymphoma -Seen by Oncology, Dr. Whyte, who has signed off -DM: Hemoglobin A1c is 7.0. Continue Levemir with sliding scale insulin- monitor and adjust the regimen as needed. - MRSA in the sputum, tracheobronchitis. Chest x-ray 04/05 was clear. completed course of zyvox. mild hypokalemia; replaced. DVT prophylaxis: no coumadin due to wound bleeding. SCDs. Problem Qualifiers (1) DM (diabetes mellitus): Qualified Code: E11.9 - Type 2 diabetes mellitus without complications Soco Pickett MD Apr 30, 2016 19:15
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
[2016-04-30] MEDS: INSULIN DETEMIR 100 UNITS/ML VIAL SQ SCH (21:09)
[2016-05-01] VITALS (10 sets, daily range): BP systolic 112–144; BP diastolic 68–80; PULSE 76–91; RESP 20–24; TEMP 95.3–98; O2SAT 95–100
[2016-05-01] MEDS: ACETAMINOPHEN/HYDROcodone 325 MG/5 MG TAB PEG SCH ×5 (01:31→18:15)
[2016-05-01] MEDS: FREE WATER TUBE SCH ×6 (04:00→20:00)
[2016-05-01] MEDS: INSULIN ASPART SUPPLEMENTAL SCALE SQ SCH ×4 (06:11→21:54)
[2016-05-01] MEDS: ACETIC ACID 0.25% SOLN 1000 ML IRR BTL IRRIGATION SCH ×3 (06:12→22:00)
--- NOTE | 2016-05-01 08:22 | HHI.PR ---
Subjective Remarks Decubitus ulcer, Stroke No significant change Objective Vital Signs Date Time Temp Pulse Resp B/P Pulse Ox O2 Delivery O2 Flow Rate FiO2 05/01/16 08:19 96.9 84 20 117/75 100 05/01/16 05:38 96.9 87 20 112/68 97 05/01/16 03:00 T-Piece 6.00 35 05/01/16 01:57 91 05/01/16 00:05 98.0 78 24 144/80 95 04/30/16 20:00 99.4 97 24 126/77 100 04/30/16 16:03 99 T-piece 6.00 28 04/30/16 16:03 99 T-piece 6.00 28 04/30/16 16:00 96.0 78 22 103/64 97 04/30/16 12:00 97.2 83 22 116/69 99 I/O 04/30/16 04/30/16 04/30/16 05/01/16 05/01/16 05/01/16 07:00 15:00 23:00 07:00 15:00 23:00 Output Total 850 ml 1000 ml 425 ml 875 ml Balance -850 ml -1000 ml -425 ml -875 ml Output Urine Total 850 ml 1000 ml 425 ml 875 ml Bladder Scan Volume Amount 392 ml # Bowel Movements 2 Result Diagram: 04/30/1611 Procedures Procedures 01/02/16 PEG placement 01/02/16 tracheostomy Objective Remarks Seems comfortable, more alert Assessment and Plan Assessment and Plan Need for diverting stoma Current plan for Friday at 2 PM Taya Graves MD May 01, 2016 08:22
[2016-05-01] MEDS: ALBUMIN HUMAN 25% 12.5 GM/50 ML BAGP IV SCH (08:48)
[2016-05-01] MEDS: levETIRAcetam 500 MG/5 ML UDC TUBE SCH ×2 (08:48→21:55)
[2016-05-01] MEDS: LACTOBACILLUS ACIDOPHILUS TAB PEG SCH ×2 (08:48→21:55)
[2016-05-01] MEDS: DILTIAZEM HCL 90 MG TAB PEG SCH ×4 (08:48→21:55)
[2016-05-01] MEDS: RANITIDINE HCL SYRUP 150 MG/10 ML UDC PO SCH (08:48)
[2016-05-01] MEDS: SENNOSIDES SYRUP 8.8 MG/5 ML CUP TUBE SCH (08:48)
[2016-05-01] MEDS: LACTULOSE SYRUP 20 GM/30 ML CUP PEG SCH (08:48)
[2016-05-01] MEDS: POTASSIUM CHLORIDE 25 MEQ EFFERVESCENT TAB TUBE SCH ×2 (08:49→21:55)
[2016-05-01] MEDS: METOPROLOL TARTRATE 50 MG TAB PO SCH ×2 (08:49→21:55)
[2016-05-01] MEDS: NYSTATIN 100,000 U/GM PWD 15 GM BTL TOPICAL SCH ×2 (08:49→22:09)
[2016-05-01] MEDS: ARTIFICIAL TEARS OPTH OINT 3.5 APPLIC/3.5 GM TUBO EACH EYE SCH ×2 (08:49→22:08)
[2016-05-01] MEDS: RESP: LEVALBUTEROL HYDROCHLORIDE 0.63 MG/3 ML NEB (SCH) NEB ×2 (09:41→15:35)
[2016-05-01] MEDS: FUROSEMIDE 20 MG/2 ML VIAL IV PUSH SCH (10:34)
[2016-05-01] MEDS: cefTRIAXone INJ 2,000 MG in SODIUM CHLORIDE 0.9% INJ 100 ML IV SCH (13:55)
--- NOTE | 2016-05-01 15:21 | HHI.PR ---
Subjective Remarks Family and pulmonology at the bedside. The patient appeared comfortable. Family had questions regarding upcoming surgery with colorectal surgery. Objective Vitals Vital Signs Date Time Temp Pulse Resp B/P Pulse Ox O2 Delivery O2 Flow Rate FiO2 05/01/16 15:05 T-Piece 6.00 35 05/01/16 12:34 96.8 76 20 113/71 97 05/01/16 09:45 98 T-piece 28 05/01/16 09:43 98 T-piece 28 05/01/16 08:19 96.9 84 20 117/75 100 05/01/16 05:38 96.9 87 20 112/68 97 05/01/16 03:00 T-Piece 6.00 35 05/01/16 01:57 91 05/01/16 00:05 98.0 78 24 144/80 95 04/30/16 20:00 99.4 97 24 126/77 100 04/30/16 16:03 99 T-piece 6.00 28 04/30/16 16:03 99 T-piece 6.00 28 04/30/16 16:00 96.0 78 22 103/64 97 I/O 04/30/16 04/30/16 04/30/16 05/01/16 05/01/16 05/01/16 07:00 15:00 23:00 07:00 15:00 23:00 Output Total 850 ml 1000 ml 425 ml 875 ml Balance -850 ml -1000 ml -425 ml -875 ml Output Urine Total 850 ml 1000 ml 425 ml 875 ml Bladder Scan Volume Amount 392 ml # Bowel Movements 2 Result Diagram: 04/30/16 0911 Imaging Last Impressions Chest X-Ray 04/25/16 0000 Signed Impressions: Service Date/Time: April 18:10 - CONCLUSION: Suspected basilar atelectasis. Glen Blanco MD Abdomen/Pelvis CT 04/12/16 0000 Signed Impressions: Service Date/Time: Tuesday, April 12, 2016 20:52 - CONCLUSION: 1. 6.4 cm necrotic mass or abscess in the soft tissues posteriorly just below the sacrum associated with some bony destructive change of the lower most sacrum and coccyx with inflammatory changes extending into the ischiorectal fossa and into the presacral retroperitoneum predominantly on the left side. There is associated fairly marked mural thickening of the anal verge and rectum. 2. There is gastrostomy and Arevalo catheter present. Stable abdominal aortic aneurysm. Durga Dotson MD Head Magnetic Resonance Angiography 03/05/16 0000 Signed Impressions: Service Date/Time: Saturday, March 05, 2016 09:26 - CONCLUSION: Persistent high-grade subtotal occlusive stenotic lesions in the distal right vertebral artery and proximal basilar artery with significant improvement in flow and recanalization following initial presentation of thrombosis. Stable interstitial circulation without significant stenosis. 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 There is decreasing restricted diffusion and increasing loss of volume characteristic of a subacute to chronic infarct. No evidence of acute infarct, acute hemorrhage mass or edema. Ernesto Kulkarni MD Head CT 01/16/16 0000 Signed Impressions: Service Date/Time: Saturday, January 16, 2016 10:51 - CONCLUSION: No extensive low density in the brainstem colin more prominent in the right the left extending into the right middle cerebellar peduncle consistent with brainstem infarct nonhemorrhagic acute Wellington West MD Abdomen X-Ray 01/14/16 0000 Signed Impressions: Service Date/Time: Thursday, January 14, 2016 10:19 - CONCLUSION: Moderate stool; otherwise, negative. 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 No evidence of carotid stenosis. Glen Zamora MD Head/Brain Mag Res Venography 12/22/15 0000 Signed Impressions: Service Date/Time: Tuesday, December 22, 2015 09:22 - CONCLUSION: Normal MRV. Jonel Jones Jr., MD Objective Remarks GENERAL: Resting comfortably. SKIN: Warm and dry. HEAD: Normocephalic. EYES: No scleral icterus. No injection or drainage. NECK: trach in place. CARDIOVASCULAR: Regular rate and rhythm without murmurs, gallops, or rubs. RESPIRATORY: Breath sounds equal bilaterally. No accessory muscle use. GASTROINTESTINAL: Abdomen soft, non-tender, nondistended. PEG tube in place. EXTREMITIES: 1+ edema of hands and legs. NEUROLOGICAL: Awake, alert. Does not follow commands. Does not appear to track consistently with eyes. Procedures 01/02/16 PEG placement 01/02/16 tracheostomy Medications and IVs Current Medications Medications (Trade) Dose Ordered Sig/Junior Route Start Time Stop Time Status Last Admin (NS Flush) 2 ml UNSCH PRN IVF 12/21/15 06:00 04/21/16 09:42 (Keppra Liq) 500 mg Q12HR TUBE 12/27/15 21:00 05/01/16 08:48 (Tylenol 650 Mg/ 20 ml Liq) 650 mg Q6H PRN TUBE 12/30/15 15:15 04/22/16 14:42 ([place] 5-325 Mg) 1 tab Q6H PRN PO 12/31/15 15:00 04/18/16 12:42 (Mycostatin Powder) 1 applic Q12HR TOPICAL 01/08/16 21:00 05/01/16 08:49 (Pill Splitter) 1 ea UNSCH PRN OTHER 01/14/16 08:30 (Zantac Liq) 150 mg Q24H PO 01/18/16 09:00 05/01/16 08:48 (Acetic Acid 0.25% Irr Btl) 10 ml Q8HR IRRIGATION 02/05/16 16:00 05/01/16 13:33 (Senna Liq) 8.8 mg DAILY TUBE 02/21/16 09:00 05/01/16 08:48 (Ativan Inj) 0.5 mg Q4H PRN IV PUSH 03/07/16 23:00 (Paxil Liq) 20 mg DAILY@1900 PEG 03/12/16 19:00 04/30/16 17:27 (Levemir Inj) 35 units HS SQ 03/24/16 21:00 04/30/16 21:09 (Lopressor) 75 mg BID PO 04/02/16 21:00 05/01/16 08:49 (Lacrilube Opht Oint) 1 applic Q12HR EACH EYE 04/10/16 11:00 05/01/16 08:49 (Levsin) 0.25 mg Q4H PRN G-TUBE 04/11/16 10:30 04/30/16 08:30 (Coumadin) 3 mg DAILY@16 PO 04/13/16 16:00 Hold (Zofran Inj) 4 mg Q6HR PRN IV PUSH 04/14/16 19:45 Water 200 ml 200 ml Q4HR TUBE 04/16/16 12:00 05/01/16 12:00 (Rocephin Inj/NS Inj) 100 ml @ 200 mls/hr Q24H IV 04/16/16 12:00 05/01/16 13:55 (State [place] 5-325 Mg) 1 tab Q6HR PEG 04/18/16 18:00 05/01/16 13:33 (Lactulose Liq) 30 ml DAILY PEG 04/20/16 09:00 05/01/16 08:48 (D50w (Vial) Inj) 25 ml UNSCH PRN IV 04/20/16 12:00 (Glucagon Inj) 1 mg UNSCH PRN IM/SQ 04/20/16 12:00 (Lactinex) 1 tab Q12HR PEG 04/22/16 09:00 05/01/16 08:48 (K-Lyte Cl Eff) 25 meq Q12HR TUBE 04/22/16 09:00 05/01/16 08:49 (Lasix Inj) 20 mg DAILY IV PUSH 04/25/16 09:00 05/01/16 10:34 (Albumin 25% Inj) 12.5 gm DAILY IV 04/25/16 10:00 05/01/16 08:48 (Cardizem) 90 mg QID PEG 04/25/16 21:00 05/01/16 13:00 Date of Insertion: Mar 07, 2016 A/P Problem List: (1) CVA (cerebral vascular accident) ICD Code: I63.9 Status: Acute (2) A-fib ICD Code: I48.91 Status: Chronic (3) DM (diabetes mellitus) ICD Code: E11.9 Status: Chronic Assessment and Plan CVA (cerebral vascular accident): 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 Significant residual cognitive deficit. -Nonverbal at this time; appears to be in a locked in state. Poor half-way prognosis. 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 -Continue Keppra and Coumadin- Palliative care following. Monitor Keppra level periodically. - evaluated by neurology; continue Keppra -cont Paxil as per family request. -Large sacral necrotic mass (6.[address] posterior to sacrum) with destruction of coccyx - stage IV decubitus ulcer versus hematoma vs possible destructive mass - s/p plastics eval (I discussed the patient previously with Dr. Yoder) who has now signed off. He recommended consulting colorectal to see if they would be able to address the area. - Dr. Chawla was web applications developer for colorectal and recommended palliative care consultation also recommended if bleeding is a concern to consider to consult interventional radiology to see if embolization could provide hemostasis rather than a large surgery -CRS consult consulted - for evaluation if will benefit from diverting colostomy - tentatively planned for Friday. - seen by Dr. Mars- vascular surgery - - the wound and the patients overall poor prognosis. hospice would be appropriate. Palliative care is following. cultures +klebsiella. pt on abx per ID. no anticoagulation due to bleeding from the wound. cont wound care (packing daily). Discussed with family, including patient's cousin who is a physician in [place]. The patient would not be likely to heal from this large wound given his immobility. - monitor CBC- and H stable - d/w family at bedside- wants to pursue aggressive- they are not ready for hospice at this point - Palliative care involved - 04/23- made alternative code -Fluid overload/edema with positive fluid balance -generalized edema- continues to imrprove start lasix 20 mg IV daily, with albumin, k-lyte 25 meq PEG BID, monitor I/O . ff BMP ff BMP Respiratory failure: Secondary to CVA. Patient is status post tracheostomy. Pulmonary following. on Fi02 35%- d/w RT taper to 28% as toelrated - Levsin PRN secretions. needs suctioning renew duoneb q 6 Xopenex q 2 prn - Follow up with pulmonology. Anemia of acute blood loss - secondary to bleeding from the wound. H and H stable -GI/Nutrition: Previous PEG tube exchanged by GI at bedside 03/30/2016. dietary ff. -Depression: Continue Paxil. -A-fib: rate better controlled- on telmetry- 04/28- in SR continue Lopressor, cardizem 90 mg qid. NO coumadin due to significant bleeding from the sacral wound. -UTI: Resolved. Urine culture with Klebsiella on 01/31 and repeat on 03/06 negative. -Coccyx pressure ulcer- cont wound care. -History of Non-Hodgkin lymphoma: s/p brain biopsy on December 13, by Neurosurgery, Dr. Marin, Pathology consistent with acute infarct without evidence of lymphoma -Seen by Oncology, Dr. Whyte, who has signed off -DM: Hemoglobin A1c is 7.0. Continue Levemir with sliding scale insulin- monitor and adjust the regimen as needed. - MRSA in the sputum, tracheobronchitis. Chest x-ray 04/05 was clear. completed course of zyvox. mild hypokalemia; replaced. DVT prophylaxis: no coumadin due to wound bleeding. SCDs. Discharge Planning Awaiting clinical improvement. Problem Qualifiers (1) DM (diabetes mellitus): Qualified Code: E11.9 - Type 2 diabetes mellitus without complications Gerald Calhoun DO May 01, 2016 15:21
[2016-05-01] MEDS: PARoxetine HCL SUSP 20 MG/10 ML UDC PEG SCH (18:14)
[2016-05-01] MEDS: SODIUM CHLORIDE 0.9% FLUSH 5 ML FLUSH IVF PRN (21:53)
[2016-05-01] MEDS: INSULIN DETEMIR 100 UNITS/ML VIAL SQ SCH (21:54)
[2016-05-02] VITALS (10 sets, daily range): BP systolic 111–150; BP diastolic 54–82; PULSE 76–104; RESP 18–24; TEMP 95.8–98.9; O2SAT 97–100
[2016-05-02] MEDS: RESP: LEVALBUTEROL HYDROCHLORIDE 0.63 MG/3 ML NEB (SCH) NEB ×4 (00:30→23:21)
[2016-05-02] MEDS: FREE WATER TUBE SCH ×6 (04:00→21:26)
[2016-05-02] MEDS: INSULIN ASPART SUPPLEMENTAL SCALE SQ SCH ×4 (06:13→21:26)
[2016-05-02] MEDS: ACETIC ACID 0.25% SOLN 1000 ML IRR BTL IRRIGATION SCH ×3 (06:13→21:26)
[2016-05-02] MEDS: ACETAMINOPHEN/HYDROcodone 325 MG/5 MG TAB PEG SCH ×3 (06:13→18:00)
[2016-05-02] MEDS: METOPROLOL TARTRATE 50 MG TAB PO SCH ×2 (09:00→21:26)
[2016-05-02] MEDS: ARTIFICIAL TEARS OPTH OINT 3.5 APPLIC/3.5 GM TUBO EACH EYE SCH ×2 (09:00→21:26)
[2016-05-02] MEDS: NYSTATIN 100,000 U/GM PWD 15 GM BTL TOPICAL SCH ×3 (09:00→21:36)
[2016-05-02] MEDS: ALBUMIN HUMAN 25% 12.5 GM/50 ML BAGP IV SCH (10:03)
[2016-05-02] MEDS: POTASSIUM CHLORIDE 25 MEQ EFFERVESCENT TAB TUBE SCH ×2 (10:07→21:26)
[2016-05-02] MEDS: RANITIDINE HCL SYRUP 150 MG/10 ML UDC PO SCH (10:08)
[2016-05-02] MEDS: levETIRAcetam 500 MG/5 ML UDC TUBE SCH ×2 (10:08→21:26)
[2016-05-02] MEDS: LACTULOSE SYRUP 20 GM/30 ML CUP PEG SCH (10:08)
[2016-05-02] MEDS: SENNOSIDES SYRUP 8.8 MG/5 ML CUP TUBE SCH (10:08)
[2016-05-02] MEDS: LACTOBACILLUS ACIDOPHILUS TAB PEG SCH ×2 (10:09→21:26)
[2016-05-02] MEDS: DILTIAZEM HCL 90 MG TAB PEG SCH ×4 (10:09→21:26)
[2016-05-02] MEDS: FUROSEMIDE 20 MG/2 ML VIAL IV PUSH SCH (10:10)
--- NOTE | 2016-05-02 10:40 | HHI.PR ---
Subjective Remarks The patient was resting comfortably. Family at the bedside. No acute concerns. Objective Vitals Vital Signs Date Time Temp Pulse Resp B/P Pulse Ox O2 Delivery O2 Flow Rate FiO2 05/02/16 09:23 98 T-piece 4.00 28 05/02/16 08:29 98.4 96 23 111/68 05/02/16 04:00 98.6 90 24 146/81 97 05/02/16 00:30 98 T-piece 28 05/02/16 00:00 97.3 76 20 137/76 98 05/01/16 20:00 82 05/01/16 20:00 96.7 82 20 128/75 100 05/01/16 19:00 T-Piece 6.00 35 05/01/16 16:53 95.3 80 20 122/69 100 05/01/16 15:35 99 T-piece 6.00 28 05/01/16 15:35 99 T-piece 6.00 28 05/01/16 15:05 T-Piece 6.00 35 05/01/16 12:34 96.8 76 20 113/71 97 I/O 05/01/16 05/01/16 05/01/16 05/02/16 05/02/16 05/02/16 07:00 15:00 23:00 07:00 15:00 23:00 Intake Total 400 ml 200 ml 1699 ml Output Total 875 ml 950 ml 200 ml 600 ml Balance -875 ml -550 ml 0 ml 1099 ml Tube Feeding 1099 ml Other 400 ml 200 ml 600 ml Output Urine Total 875 ml 950 ml 200 ml 600 ml # Bowel Movements 1 0 0 Result Diagram: 04/30/16 0911 Imaging Last Impressions Chest X-Ray 04/25/16 0000 Signed Impressions: Service Date/Time: April 18:10 - CONCLUSION: Suspected basilar atelectasis. Glen Blanco MD Abdomen/Pelvis CT 04/12/16 0000 Signed Impressions: Service Date/Time: Tuesday, April 12, 2016 20:52 - CONCLUSION: 1. 6.4 cm necrotic mass or abscess in the soft tissues posteriorly just below the sacrum associated with some bony destructive change of the lower most sacrum and coccyx with inflammatory changes extending into the ischiorectal fossa and into the presacral retroperitoneum predominantly on the left side. There is associated fairly marked mural thickening of the anal verge and rectum. 2. There is gastrostomy and Arevalo catheter present. Stable abdominal aortic aneurysm. Durga Dotson MD Head Magnetic Resonance Angiography 03/05/16 0000 Signed Impressions: Service Date/Time: Saturday, March 05, 2016 09:26 - CONCLUSION: Persistent high-grade subtotal occlusive stenotic lesions in the distal right vertebral artery and proximal basilar artery with significant improvement in flow and recanalization following initial presentation of thrombosis. Stable interstitial circulation without significant stenosis. 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 There is decreasing restricted diffusion and increasing loss of volume characteristic of a subacute to chronic infarct. No evidence of acute infarct, acute hemorrhage mass or edema. Ernesto Kulkarni MD Head CT 01/16/16 0000 Signed Impressions: Service Date/Time: Saturday, January 16, 2016 10:51 - CONCLUSION: No extensive low density in the brainstem colin more prominent in the right the left extending into the right middle cerebellar peduncle consistent with brainstem infarct nonhemorrhagic acute Wellington West MD Abdomen X-Ray 01/14/16 0000 Signed Impressions: Service Date/Time: Thursday, January 14, 2016 10:19 - CONCLUSION: Moderate stool; otherwise, negative. 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 No evidence of carotid stenosis. Glen Zamora MD Head/Brain Mag Res Venography 12/22/15 0000 Signed Impressions: Service Date/Time: Tuesday, December 22, 2015 09:22 - CONCLUSION: Normal MRV. Jonel Jones Jr., MD Objective Remarks GENERAL: Resting comfortably. SKIN: Warm and dry. HEAD: Normocephalic. EYES: No scleral icterus. No injection or drainage. NECK: trach in place. CARDIOVASCULAR: Regular rate and rhythm without murmurs, gallops, or rubs. RESPIRATORY: Breath sounds equal bilaterally. No accessory muscle use. GASTROINTESTINAL: Abdomen soft, non-tender, nondistended. PEG tube in place. EXTREMITIES: 1+ edema of hands and legs. NEUROLOGICAL: Awake, alert. Does not follow commands. Does not appear to track consistently with eyes. Procedures 01/02/16 PEG placement 01/02/16 tracheostomy Medications and IVs Current Medications Medications (Trade) Dose Ordered Sig/Junior Route Start Time Stop Time Status Last Admin (NS Flush) 2 ml UNSCH PRN IVF 12/21/15 06:00 05/01/16 21:53 (Keppra Liq) 500 mg Q12HR TUBE 12/27/15 21:00 05/02/16 10:08 (Tylenol 650 Mg/ 20 ml Liq) 650 mg Q6H PRN TUBE 12/30/15 15:15 04/22/16 14:42 (Higdon 5-325 Mg) 1 tab Q6H PRN PO 12/31/15 15:00 04/18/16 12:42 (Mycostatin Powder) 1 applic Q12HR TOPICAL 01/08/16 21:00 05/02/16 09:00 (Pill Splitter) 1 ea UNSCH PRN OTHER 01/14/16 08:30 (Zantac Liq) 150 mg Q24H PO 01/18/16 09:00 05/02/16 10:08 (Acetic Acid 0.25% Irr Btl) 10 ml Q8HR IRRIGATION 02/05/16 16:00 05/02/16 06:13 (Senna Liq) 8.8 mg DAILY TUBE 02/21/16 09:00 05/02/16 10:08 (Ativan Inj) 0.5 mg Q4H PRN IV PUSH 03/07/16 23:00 (Paxil Liq) 20 mg DAILY@1900 PEG 03/12/16 19:00 05/01/16 18:14 (Levemir Inj) 35 units HS SQ 03/24/16 21:00 05/01/16 21:54 (Lopressor) 75 mg BID PO 04/02/16 21:00 05/01/16 21:55 (Lacrilube Opht Oint) 1 applic Q12HR EACH EYE 04/10/16 11:00 05/02/16 09:00 (Levsin) 0.25 mg Q4H PRN G-TUBE 04/11/16 10:30 04/30/16 08:30 (Coumadin) 3 mg DAILY@16 PO 04/13/16 16:00 Hold (Zofran Inj) 4 mg Q6HR PRN IV PUSH 04/14/16 19:45 Water 200 ml 200 ml Q4HR TUBE 04/16/16 12:00 05/02/16 08:00 (Rocephin Inj/NS Inj) 100 ml @ 200 mls/hr Q24H IV 04/16/16 12:00 05/01/16 13:55 (Higdon 5-325 Mg) 1 tab Q6HR PEG 04/18/16 18:00 05/02/16 06:13 (Lactulose Liq) 30 ml DAILY PEG 04/20/16 09:00 05/02/16 10:08 (D50w (Vial) Inj) 25 ml UNSCH PRN IV 04/20/16 12:00 (Glucagon Inj) 1 mg UNSCH PRN IM/SQ 04/20/16 12:00 (Lactinex) 1 tab Q12HR PEG 04/22/16 09:00 05/02/16 10:09 (K-Lyte Cl Eff) 25 meq Q12HR TUBE 04/22/16 09:00 05/02/16 10:07 (Lasix Inj) 20 mg DAILY IV PUSH 04/25/16 09:00 05/02/16 10:10 (Albumin 25% Inj) 12.5 gm DAILY IV 04/25/16 10:00 05/02/16 10:03 (Cardizem) 90 mg QID PEG 04/25/16 21:00 05/02/16 10:09 Date of Insertion: Mar 07, 2016 A/P Problem List: (1) CVA (cerebral vascular accident) ICD Code: I63.9 Status: Acute (2) A-fib ICD Code: I48.91 Status: Chronic (3) DM (diabetes mellitus) ICD Code: E11.9 Status: Chronic Assessment and Plan CVA (cerebral vascular accident): 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 Significant residual cognitive deficit. -Nonverbal at this time; appears to be in a locked in state. Poor snf prognosis. 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 -Continue Keppra and Coumadin- Palliative care following. Monitor Keppra level periodically. - evaluated by neurology; continue Keppra -cont Paxil as per family request. -Large sacral necrotic mass (6.[address] posterior to sacrum) with destruction of coccyx - stage IV decubitus ulcer versus hematoma vs possible destructive mass - s/p plastics eval (I discussed the patient previously with Dr. Yoder) who has now signed off. He recommended consulting colorectal to see if they would be able to address the area. - Dr. Chawla was registration scheduling specialist for colorectal and recommended palliative care consultation also recommended if bleeding is a concern to consider to consult interventional radiology to see if embolization could provide hemostasis rather than a large surgery -CRS consult consulted - for evaluation if will benefit from diverting colostomy - tentatively planned for Friday. - seen by Dr. Mars- vascular surgery - - the wound and the patients overall poor prognosis. hospice would be appropriate. Palliative care is following. cultures +klebsiella. pt on abx per ID. no anticoagulation due to bleeding from the wound. cont wound care (packing daily). Discussed with family, including patient's cousin who is a physician in [place]. The patient would not be likely to heal from this large wound given his immobility. - monitor CBC- and H stable - d/w family at bedside- wants to pursue aggressive- they are not ready for hospice at this point - Palliative care involved - 04/23- made alternative code -Fluid overload/edema with positive fluid balance -generalized edema- continues to imrprove start lasix 20 mg IV daily, with albumin, k-lyte 25 meq PEG BID, monitor I/O . ff BMP ff BMP Respiratory failure: Secondary to CVA. Patient is status post tracheostomy. Pulmonary following. on Fi02 35%- d/w RT taper to 28% as toelrated - Levsin PRN secretions. needs suctioning renew duoneb q 6 Xopenex q 2 prn - Follow up with pulmonology. Anemia of acute blood loss - secondary to bleeding from the wound. H and H stable -GI/Nutrition: Previous PEG tube exchanged by GI at bedside 03/30/2016. dietary ff. -Depression: Continue Paxil. -A-fib: rate better controlled- on telmetry- 04/28- in SR continue Lopressor, cardizem 90 mg qid. NO coumadin due to significant bleeding from the sacral wound. -UTI: Resolved. Urine culture with Klebsiella on 01/31 and repeat on 03/06 negative. -Coccyx pressure ulcer- cont wound care. -History of Non-Hodgkin lymphoma: s/p brain biopsy on December 13, by Neurosurgery, Dr. Marin, Pathology consistent with acute infarct without evidence of lymphoma -Seen by Oncology, Dr. Whyte, who has signed off -DM: Hemoglobin A1c is 7.0. Continue Levemir with sliding scale insulin- monitor and adjust the regimen as needed. - MRSA in the sputum, tracheobronchitis. Chest x-ray 04/05 was clear. completed course of zyvox. mild hypokalemia; replaced. DVT prophylaxis: no Coumadin due to wound bleeding. SCDs. Discharge Planning Awaiting clinical improvement. Problem Qualifiers (1) DM (diabetes mellitus): Qualified Code: E11.9 - Type 2 diabetes mellitus without complications Gerald Calhoun DO May 02, 2016 10:40
[2016-05-02] MEDS: cefTRIAXone INJ 2,000 MG in SODIUM CHLORIDE 0.9% INJ 100 ML IV SCH (13:19)
[2016-05-02] MEDS: PARoxetine HCL SUSP 20 MG/10 ML UDC PEG SCH (19:00)
[2016-05-02] MEDS: RESP: LEVALBUTEROL HYDROCHLORIDE 0.63 MG/3 ML NEB (PRN) NEB (19:49)
[2016-05-02] MEDS: INSULIN DETEMIR 100 UNITS/ML VIAL SQ SCH (21:26)
[2016-05-03] VITALS (11 sets, daily range): BP systolic 118–144; BP diastolic 69–84; PULSE 83–102; RESP 16–20; TEMP 95.3–98.6; O2SAT 94–99
[2016-05-03] MEDS: FREE WATER TUBE SCH ×6 (04:00→20:00)
[2016-05-03] MEDS: ACETAMINOPHEN/HYDROcodone 325 MG/5 MG TAB PEG SCH ×3 (05:06→17:52)
[2016-05-03] MEDS: ACETIC ACID 0.25% SOLN 1000 ML IRR BTL IRRIGATION SCH ×3 (05:11→22:00)
[2016-05-03] MEDS: INSULIN ASPART SUPPLEMENTAL SCALE SQ SCH ×4 (05:12→21:36)
[2016-05-03] MEDS: RESP: LEVALBUTEROL HYDROCHLORIDE 0.63 MG/3 ML NEB (SCH) NEB ×2 (08:16→15:42)
--- NOTE | 2016-05-03 08:45 | HHI.PR ---
Subjective Remarks Decubitus ulcer, Stroke No significant change Objective Vital Signs Date Time Temp Pulse Resp B/P Pulse Ox O2 Delivery O2 Flow Rate FiO2 05/03/16 08:18 97 T-piece 4.00 21 05/03/16 08:00 96.2 102 20 138/84 98 05/03/16 04:56 98.6 90 18 123/76 99 05/03/16 00:00 98.0 83 16 144/71 98 05/02/16 20:25 97 T-Piece 6.00 35 05/02/16 20:00 100 05/02/16 20:00 98.9 104 18 150/54 100 05/02/16 19:54 99 T-piece 5.00 28 05/02/16 19:54 98 T-piece 5.00 28 05/02/16 16:57 95.8 95 20 128/82 98 05/02/16 12:33 96.9 96 22 120/73 97 05/02/16 09:23 98 T-piece 4.00 28 I/O 05/02/16 05/02/16 05/02/16 05/03/16 05/03/16 05/03/16 07:00 15:00 23:00 07:00 15:00 23:00 Intake Total 1699 ml Output Total 600 ml 1000 ml 250 ml 400 ml Balance 1099 ml -1000 ml -250 ml -400 ml Tube Feeding 1099 ml Other 600 ml Output Urine Total 600 ml 1000 ml 250 ml 400 ml # Bowel Movements 0 0 Result Diagram: 04/30/16 0911 Procedures Procedures 01/02/16 PEG placement 01/02/16 tracheostomy Objective Remarks no change Assessment and Plan Assessment and Plan Plan for diverting colostomy Friday at 2 PM Consents ordered Hold coumadin Stop TF's Friday Gentle bowel prep Friday Taya Graves MD May 03, 2016 08:45
[2016-05-03] MEDS: ARTIFICIAL TEARS OPTH OINT 3.5 APPLIC/3.5 GM TUBO EACH EYE SCH ×2 (09:00→21:00)
[2016-05-03] MEDS: NYSTATIN 100,000 U/GM PWD 15 GM BTL TOPICAL SCH (09:00)
[2016-05-03] MEDS: ALBUMIN HUMAN 25% 12.5 GM/50 ML BAGP IV SCH (09:52)
[2016-05-03] MEDS: levETIRAcetam 500 MG/5 ML UDC TUBE SCH ×2 (09:59→21:35)
[2016-05-03] MEDS: SENNOSIDES SYRUP 8.8 MG/5 ML CUP TUBE SCH (09:59)
[2016-05-03] MEDS: METOPROLOL TARTRATE 50 MG TAB PO SCH ×2 (10:00→21:35)
[2016-05-03] MEDS: RANITIDINE HCL SYRUP 150 MG/10 ML UDC PO SCH (10:00)
[2016-05-03] MEDS: POTASSIUM CHLORIDE 25 MEQ EFFERVESCENT TAB TUBE SCH ×2 (10:00→21:35)
[2016-05-03] MEDS: LACTULOSE SYRUP 20 GM/30 ML CUP PEG SCH (10:00)
[2016-05-03] MEDS: LACTOBACILLUS ACIDOPHILUS TAB PEG SCH ×2 (10:01→21:35)
[2016-05-03] MEDS: DILTIAZEM HCL 90 MG TAB PEG SCH ×4 (10:01→21:35)
[2016-05-03] MEDS: FUROSEMIDE 20 MG/2 ML VIAL IV PUSH SCH (10:01)
--- NOTE | 2016-05-03 11:06 | HHI.PR ---
Subjective Remarks The pt's family was at the bedside. They had questions about the surgery. The pt appeared comfortable. Objective Vitals Vital Signs Date Time Temp Pulse Resp B/P Pulse Ox O2 Delivery O2 Flow Rate FiO2 05/03/16 08:57 99 T-piece 4.00 21 05/03/16 08:18 97 T-piece 4.00 21 05/03/16 08:00 96.2 102 20 138/84 98 05/03/16 04:56 98.6 90 18 123/76 99 05/03/16 00:00 98.0 83 16 144/71 98 05/02/16 20:25 97 T-Piece 6.00 35 05/02/16 20:00 100 05/02/16 20:00 98.9 104 18 150/54 100 05/02/16 19:54 99 T-piece 5.00 28 05/02/16 19:54 98 T-piece 5.00 28 05/02/16 16:57 95.8 95 20 128/82 98 05/02/16 12:33 96.9 96 22 120/73 97 I/O 05/02/16 05/02/16 05/02/16 05/03/16 05/03/16 05/03/16 07:00 15:00 23:00 07:00 15:00 23:00 Intake Total 1699 ml Output Total 600 ml 1000 ml 250 ml 400 ml Balance 1099 ml -1000 ml -250 ml -400 ml Tube Feeding 1099 ml Other 600 ml Output Urine Total 600 ml 1000 ml 250 ml 400 ml # Bowel Movements 0 0 Result Diagram: 04/30/16 0911 Imaging Last Impressions Chest X-Ray 04/25/16 0000 Signed Impressions: Service Date/Time: April 18:10 - CONCLUSION: Suspected basilar atelectasis. Glen Blanco MD Abdomen/Pelvis CT 04/12/16 0000 Signed Impressions: Service Date/Time: Tuesday, April 12, 2016 20:52 - CONCLUSION: 1. 6.4 cm necrotic mass or abscess in the soft tissues posteriorly just below the sacrum associated with some bony destructive change of the lower most sacrum and coccyx with inflammatory changes extending into the ischiorectal fossa and into the presacral retroperitoneum predominantly on the left side. There is associated fairly marked mural thickening of the anal verge and rectum. 2. There is gastrostomy and Arevalo catheter present. Stable abdominal aortic aneurysm. Durga Dotson MD Head Magnetic Resonance Angiography 03/05/16 0000 Signed Impressions: Service Date/Time: Saturday, March 05, 2016 09:26 - CONCLUSION: Persistent high-grade subtotal occlusive stenotic lesions in the distal right vertebral artery and proximal basilar artery with significant improvement in flow and recanalization following initial presentation of thrombosis. Stable interstitial circulation without significant stenosis. 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 There is decreasing restricted diffusion and increasing loss of volume characteristic of a subacute to chronic infarct. No evidence of acute infarct, acute hemorrhage mass or edema. Ernesto Kulkarni MD Head CT 01/16/16 0000 Signed Impressions: Service Date/Time: Saturday, January 16, 2016 10:51 - CONCLUSION: No extensive low density in the brainstem colin more prominent in the right the left extending into the right middle cerebellar peduncle consistent with brainstem infarct nonhemorrhagic acute Wellington West MD Abdomen X-Ray 01/14/16 0000 Signed Impressions: Service Date/Time: Thursday, January 14, 2016 10:19 - CONCLUSION: Moderate stool; otherwise, negative. 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 No evidence of carotid stenosis. Glen Zamora MD Head/Brain Mag Res Venography 12/22/15 0000 Signed Impressions: Service Date/Time: Tuesday, December 22, 2015 09:22 - CONCLUSION: Normal MRV. Jonel Jones Jr., MD Objective Remarks GENERAL: Resting comfortably. SKIN: Warm and dry. HEAD: Normocephalic. EYES: No scleral icterus. No injection or drainage. NECK: trach in place. CARDIOVASCULAR: Regular rate and rhythm without murmurs, gallops, or rubs. RESPIRATORY: Breath sounds equal bilaterally. No accessory muscle use. GASTROINTESTINAL: Abdomen soft, non-tender, nondistended. PEG tube in place. EXTREMITIES: 1+ edema of hands and legs. NEUROLOGICAL: Awake, alert. Does not follow commands. Does not appear to track consistently with eyes. Procedures 01/02/16 PEG placement 01/02/16 tracheostomy Medications and IVs Current Medications Medications (Trade) Dose Ordered Sig/Junior Route Start Time Stop Time Status Last Admin (NS Flush) 2 ml UNSCH PRN IVF 12/21/15 06:00 05/01/16 21:53 (Keppra Liq) 500 mg Q12HR TUBE 12/27/15 21:00 05/03/16 09:59 (Tylenol 650 Mg/ 20 ml Liq) 650 mg Q6H PRN TUBE 12/30/15 15:15 04/22/16 14:42 (Roosevelt 5-325 Mg) 1 tab Q6H PRN PO 12/31/15 15:00 04/18/16 12:42 (Mycostatin Powder) 1 applic Q12HR TOPICAL 01/08/16 21:00 05/03/16 09:00 (Pill Splitter) 1 ea UNSCH PRN OTHER 01/14/16 08:30 (Zantac Liq) 150 mg Q24H PO 01/18/16 09:00 05/03/16 10:00 (Acetic Acid 0.25% Irr Btl) 10 ml Q8HR IRRIGATION 02/05/16 16:00 05/03/16 05:11 (Senna Liq) 8.8 mg DAILY TUBE 02/21/16 09:00 05/03/16 09:59 (Ativan Inj) 0.5 mg Q4H PRN IV PUSH 03/07/16 23:00 (Paxil Liq) 20 mg DAILY@1900 PEG 03/12/16 19:00 05/02/16 19:00 (Levemir Inj) 35 units HS SQ 03/24/16 21:00 05/02/16 21:26 (Lopressor) 75 mg BID PO 04/02/16 21:00 05/03/16 10:00 (Lacrilube Opht Oint) 1 applic Q12HR EACH EYE 04/10/16 11:00 05/03/16 09:00 (Levsin) 0.25 mg Q4H PRN G-TUBE 04/11/16 10:30 04/30/16 08:30 (Coumadin) 3 mg DAILY@16 PO 04/13/16 16:00 Hold (Zofran Inj) 4 mg Q6HR PRN IV PUSH 04/14/16 19:45 Water 200 ml 200 ml Q4HR TUBE 04/16/16 12:00 05/03/16 08:00 (Rocephin Inj/NS Inj) 100 ml @ 200 mls/hr Q24H IV 04/16/16 12:00 05/02/16 13:19 (Roosevelt 5-325 Mg) 1 tab Q6HR PEG 04/18/16 18:00 05/03/16 10:19 (Lactulose Liq) 30 ml DAILY PEG 04/20/16 09:00 05/03/16 10:00 (D50w (Vial) Inj) 25 ml UNSCH PRN IV 04/20/16 12:00 (Glucagon Inj) 1 mg UNSCH PRN IM/SQ 04/20/16 12:00 (Lactinex) 1 tab Q12HR PEG 04/22/16 09:00 05/03/16 10:01 (K-Lyte Cl Eff) 25 meq Q12HR TUBE 04/22/16 09:00 05/03/16 10:00 (Lasix Inj) 20 mg DAILY IV PUSH 04/25/16 09:00 05/03/16 10:01 (Albumin 25% Inj) 12.5 gm DAILY IV 04/25/16 10:00 05/03/16 09:52 (Cardizem) 90 mg QID PEG 04/25/16 21:00 05/03/16 10:01 Polyethylene Glycol/ Electrolytes 4000 ml 4,000 ml ONCE ONCE PO 05/05/16 08:45 05/05/16 08:46 Cefazolin Sodium/ Dextrose 50 ml @ 100 mls/hr ONCE ONCE IV 05/06/16 14:00 05/06/16 14:29 (Flagyl 500 Mg Inj) 100 ml @ 100 mls/hr ONCE ONCE IV 05/06/16 14:00 05/06/16 14:59 Date of Insertion: Mar 07, 2016 A/P Problem List: (1) CVA (cerebral vascular accident) ICD Code: I63.9 Status: Acute (2) A-fib ICD Code: I48.91 Status: Chronic (3) DM (diabetes mellitus) ICD Code: E11.9 Status: Chronic Assessment and Plan CVA (cerebral vascular accident): 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 Significant residual cognitive deficit. -Nonverbal at this time; appears to be in a locked in state. 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 - Continue Keppra and Coumadin- Palliative care following. Monitor Keppra level periodically. - evaluated by neurology; continue Keppra - cont Paxil as per family request. -Large sacral necrotic mass (6.[address] posterior to sacrum) with destruction of coccyx - stage IV decubitus ulcer versus hematoma vs possible destructive mass - s/p plastics eval (I discussed the patient previously with Dr. Yoder) who has now signed off. He recommended consulting colorectal to see if they would be able to address the area. - Dr. Chawla was offshore wind operations manager for colorectal and recommended palliative care consultation also recommended if bleeding is a concern to consider to consult interventional radiology to see if embolization could provide hemostasis rather than a large surgery - CRS consult consulted - for evaluation if will benefit from diverting colostomy - tentatively planned for Sunday 05/06. - seen by Dr. Mars- vascular surgery - - the wound and the patients overall poor prognosis. hospice would be appropriate. Palliative care is following. cultures +klebsiella. pt on abx per ID. no anticoagulation due to bleeding from the wound. cont wound care (packing daily). Discussed with family, including patient's cousin who is a physician in [place]. The patient would not be likely to heal from this large wound given his immobility. - monitor CBC- and H stable - d/w family at bedside- wants to pursue aggressive- they are not ready for hospice at this point - Palliative care involved - 04/23- made alternative code -Fluid overload/edema with positive fluid balance -generalized edema- continues to imrprove start lasix 20 mg IV daily, with albumin, k-lyte 25 meq PEG BID, monitor I/O . ff BMP ff BMP Respiratory failure: Secondary to CVA. Patient is status post tracheostomy. Pulmonary following. on Fi02 35%- d/w RT taper to 28% as toelrated - Levsin PRN secretions. needs suctioning renew duoneb q 6 Xopenex q 2 prn - Follow up with pulmonology. Anemia of acute blood loss - secondary to bleeding from the wound. H and H stable -GI/Nutrition: Previous PEG tube exchanged by GI at bedside 03/30/2016. dietary ff. -Depression: Continue Paxil. -A-fib: rate better controlled- on telmetry- 04/28- in SR continue Lopressor, cardizem 90 mg qid. NO coumadin due to significant bleeding from the sacral wound. -UTI: Resolved. Urine culture with Klebsiella on 01/31 and repeat on 03/06 negative. -Coccyx pressure ulcer- cont wound care. -History of Non-Hodgkin lymphoma: s/p brain biopsy on December 13, by Neurosurgery, Dr. Marin, Pathology consistent with acute infarct without evidence of lymphoma -Seen by Oncology, Dr. Whyte, who has signed off -DM: Hemoglobin A1c is 7.0. Continue Levemir with sliding scale insulin- monitor and adjust the regimen as needed. - MRSA in the sputum, tracheobronchitis. Chest x-ray 04/05 was clear. completed course of zyvox. mild hypokalemia; replaced. DVT prophylaxis: no Coumadin due to wound bleeding. SCDs. Discharge Planning Awaiting clinical improvement. Problem Qualifiers (1) DM (diabetes mellitus): Qualified Code: E11.9 - Type 2 diabetes mellitus without complications Gerald Calhoun DO May 03, 2016 11:06
[2016-05-03] MEDS: cefTRIAXone INJ 2,000 MG in SODIUM CHLORIDE 0.9% INJ 100 ML IV SCH (12:56)
[2016-05-03] MEDS: PARoxetine HCL SUSP 20 MG/10 ML UDC PEG SCH (17:52)
[2016-05-03] MEDS: INSULIN DETEMIR 100 UNITS/ML VIAL SQ SCH (21:36)
[2016-05-04] VITALS (10 sets, daily range): BP systolic 101–149; BP diastolic 68–82; PULSE 85–103; RESP 16–20; TEMP 95.1–98.5; O2SAT 94–100
[2016-05-04] MEDS: RESP: LEVALBUTEROL HYDROCHLORIDE 0.63 MG/3 ML NEB (SCH) NEB (00:07)
[2016-05-04] MEDS: RESP: LEVALBUTEROL HYDROCHLORIDE 1.25 MG/3 ML NEB (SCH) NEB ×3 (00:56→15:28)
[2016-05-04] MEDS: ACETAMINOPHEN/HYDROcodone 325 MG/5 MG TAB PEG SCH ×3 (01:21→18:22)
[2016-05-04] MEDS: FREE WATER TUBE SCH ×6 (01:21→20:00)
[2016-05-04] MEDS: ACETIC ACID 0.25% SOLN 1000 ML IRR BTL IRRIGATION SCH ×3 (04:29→21:52)
[2016-05-04] MEDS: INSULIN ASPART SUPPLEMENTAL SCALE SQ SCH ×4 (04:29→21:00)
[2016-05-04] MEDS: RANITIDINE HCL SYRUP 150 MG/10 ML UDC PO SCH (10:35)
[2016-05-04] MEDS: LACTULOSE SYRUP 20 GM/30 ML CUP PEG SCH (10:35)
[2016-05-04] MEDS: DILTIAZEM HCL 90 MG TAB PEG SCH ×4 (10:35→21:00)
[2016-05-04] MEDS: METOPROLOL TARTRATE 50 MG TAB PO SCH ×2 (10:36→21:46)
[2016-05-04] MEDS: SENNOSIDES SYRUP 8.8 MG/5 ML CUP TUBE SCH (10:36)
[2016-05-04] MEDS: LACTOBACILLUS ACIDOPHILUS TAB PEG SCH ×2 (10:36→21:45)
[2016-05-04] MEDS: POTASSIUM CHLORIDE 25 MEQ EFFERVESCENT TAB TUBE SCH ×2 (10:36→21:45)
[2016-05-04] MEDS: FUROSEMIDE 20 MG/2 ML VIAL IV PUSH SCH (10:37)
[2016-05-04] MEDS: ALBUMIN HUMAN 25% 12.5 GM/50 ML BAGP IV SCH (10:38)
[2016-05-04] MEDS: ARTIFICIAL TEARS OPTH OINT 3.5 APPLIC/3.5 GM TUBO EACH EYE SCH ×2 (10:39→21:00)
[2016-05-04] MEDS: NYSTATIN 100,000 U/GM PWD 15 GM BTL TOPICAL SCH ×2 (10:40→21:00)
[2016-05-04] MEDS: levETIRAcetam 500 MG/5 ML UDC TUBE SCH ×2 (10:41→21:45)
[2016-05-04] MEDS: cefTRIAXone INJ 2,000 MG in SODIUM CHLORIDE 0.9% INJ 100 ML IV SCH (12:45)
--- NOTE | 2016-05-04 14:09 | HHI.PR ---
Subjective Remarks The pt's family was at the bedside and they requested I speak with a physician friend on the phone, which I did. All questions were answered. The pt had some secretions but appeared comfortable. Objective Vitals Vital Signs Date Time Temp Pulse Resp B/P Pulse Ox O2 Delivery O2 Flow Rate FiO2 05/04/16 12:00 95.6 103 16 144/82 95 05/04/16 08:48 95 T-piece 5.00 28 05/04/16 08:48 95 T-piece 5.00 28 05/04/16 08:00 97.0 101 16 149/81 100 05/04/16 07:55 94 T-piece 28 05/04/16 07:55 94 T-piece 28 05/04/16 04:00 97.0 102 18 101/73 96 05/04/16 00:00 98.5 85 20 117/68 94 05/03/16 22:30 97 T-piece 21 05/03/16 22:30 97 T-piece 21 05/03/16 21:00 93 05/03/16 20:00 95.3 88 18 129/78 96 05/03/16 16:00 96.8 90 20 129/69 94 I/O 05/03/16 05/03/16 05/03/16 05/04/16 05/04/16 05/04/16 07:00 15:00 23:00 07:00 15:00 23:00 Output Total 400 ml 725 ml 1000 ml Balance -400 ml -725 ml -1000 ml Output Urine Total 400 ml 725 ml 1000 ml # Bowel Movements 2 1 Result Diagram: 04/30/16 0911 Imaging Last Impressions Chest X-Ray 04/25/16 0000 Signed Impressions: Service Date/Time: April 18:10 - CONCLUSION: Suspected basilar atelectasis. Glen Blanco MD Abdomen/Pelvis CT 04/12/16 0000 Signed Impressions: Service Date/Time: Tuesday, April 12, 2016 20:52 - CONCLUSION: 1. 6.4 cm necrotic mass or abscess in the soft tissues posteriorly just below the sacrum associated with some bony destructive change of the lower most sacrum and coccyx with inflammatory changes extending into the ischiorectal fossa and into the presacral retroperitoneum predominantly on the left side. There is associated fairly marked mural thickening of the anal verge and rectum. 2. There is gastrostomy and Arevalo catheter present. Stable abdominal aortic aneurysm. Durga Dotson MD Head Magnetic Resonance Angiography 03/05/16 0000 Signed Impressions: Service Date/Time: Saturday, March 05, 2016 09:26 - CONCLUSION: Persistent high-grade subtotal occlusive stenotic lesions in the distal right vertebral artery and proximal basilar artery with significant improvement in flow and recanalization following initial presentation of thrombosis. Stable interstitial circulation without significant stenosis. 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 There is decreasing restricted diffusion and increasing loss of volume characteristic of a subacute to chronic infarct. No evidence of acute infarct, acute hemorrhage mass or edema. Ernesto Kulkarni MD Head CT 01/16/16 0000 Signed Impressions: Service Date/Time: Saturday, January 16, 2016 10:51 - CONCLUSION: No extensive low density in the brainstem colin more prominent in the right the left extending into the right middle cerebellar peduncle consistent with brainstem infarct nonhemorrhagic acute Wellington West MD Abdomen X-Ray 01/14/16 0000 Signed Impressions: Service Date/Time: Thursday, January 14, 2016 10:19 - CONCLUSION: Moderate stool; otherwise, negative. 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 No evidence of carotid stenosis. Glen Zamora MD Head/Brain Mag Res Venography 12/22/15 0000 Signed Impressions: Service Date/Time: Tuesday, December 22, 2015 09:22 - CONCLUSION: Normal MRV. Jonel Jones Jr., MD Objective Remarks GENERAL: Resting comfortably. SKIN: Warm and dry. HEAD: Normocephalic. EYES: No scleral icterus. No injection or drainage. NECK: trach in place. CARDIOVASCULAR: Regular rate and rhythm without murmurs, gallops, or rubs. RESPIRATORY: Breath sounds equal bilaterally. No accessory muscle use. GASTROINTESTINAL: Abdomen soft, non-tender, nondistended. PEG tube in place. EXTREMITIES: 1+ edema of hands and legs. NEUROLOGICAL: Awake, alert. Does not follow commands. Does not appear to track consistently with eyes. Procedures 01/02/16 PEG placement 01/02/16 tracheostomy Medications and IVs Current Medications Medications (Trade) Dose Ordered Sig/Junior Route Start Time Stop Time Status Last Admin (NS Flush) 2 ml UNSCH PRN IVF 12/21/15 06:00 05/01/16 21:53 (Keppra Liq) 500 mg Q12HR TUBE 12/27/15 21:00 05/04/16 10:41 (Tylenol 650 Mg/ 20 ml Liq) 650 mg Q6H PRN TUBE 12/30/15 15:15 04/22/16 14:42 ([place] 5-325 Mg) 1 tab Q6H PRN PO 12/31/15 15:00 04/18/16 12:42 (Mycostatin Powder) 1 applic Q12HR TOPICAL 01/08/16 21:00 05/04/16 10:40 (Pill Splitter) 1 ea UNSCH PRN OTHER 01/14/16 08:30 (Zantac Liq) 150 mg Q24H PO 01/18/16 09:00 05/04/16 10:35 (Acetic Acid 0.25% Irr Btl) 10 ml Q8HR IRRIGATION 02/05/16 16:00 05/04/16 04:29 (Senna Liq) 8.8 mg DAILY TUBE 02/21/16 09:00 05/04/16 10:36 (Ativan Inj) 0.5 mg Q4H PRN IV PUSH 03/07/16 23:00 (Paxil Liq) 20 mg DAILY@1900 PEG 03/12/16 19:00 05/03/16 17:52 (Levemir Inj) 35 units HS SQ 03/24/16 21:00 05/03/16 21:36 (Lopressor) 75 mg BID PO 04/02/16 21:00 05/04/16 10:36 (Lacrilube Opht Oint) 1 applic Q12HR EACH EYE 04/10/16 11:00 05/04/16 10:39 (Levsin) 0.25 mg Q4H PRN G-TUBE 04/11/16 10:30 04/30/16 08:30 (Coumadin) 3 mg DAILY@16 PO 04/13/16 16:00 Hold (Zofran Inj) 4 mg Q6HR PRN IV PUSH 04/14/16 19:45 (Free Water) 200 ml Q4HR TUBE 04/16/16 12:00 05/04/16 12:00 ([place] 5-325 Mg) 1 tab Q6HR PEG 04/18/16 18:00 05/04/16 11:22 (Lactulose Liq) 30 ml DAILY PEG 04/20/16 09:00 05/04/16 10:35 (D50w (Vial) Inj) 25 ml UNSCH PRN IV 04/20/16 12:00 (Glucagon Inj) 1 mg UNSCH PRN IM/SQ 04/20/16 12:00 (Lactinex) 1 tab Q12HR PEG 04/22/16 09:00 05/04/16 10:36 (K-Lyte Cl Eff) 25 meq Q12HR TUBE 04/22/16 09:00 05/04/16 10:36 (Lasix Inj) 20 mg DAILY IV PUSH 04/25/16 09:00 05/04/16 10:37 (Albumin 25% Inj) 12.5 gm DAILY IV 04/25/16 10:00 05/04/16 10:38 (Cardizem) 90 mg QID PEG 04/25/16 21:00 05/04/16 13:00 Polyethylene Glycol/ Electrolytes 4000 ml 4,000 ml ONCE ONCE PO 05/05/16 08:45 05/05/16 08:46 Cefazolin Sodium/ Dextrose 50 ml @ 100 mls/hr ONCE ONCE IV 05/06/16 14:00 05/06/16 14:29 Metronidazole 100 ml @ 100 mls/hr ONCE ONCE IV 05/06/16 14:00 05/06/16 14:59 (Rocephin Inj/NS Inj) 100 ml @ 200 mls/hr Q24H IV 05/03/16 12:00 05/04/16 12:45 Date of Insertion: Mar 07, 2016 A/P Problem List: (1) CVA (cerebral vascular accident) ICD Code: I63.9 Status: Acute (2) A-fib ICD Code: I48.91 Status: Chronic (3) DM (diabetes mellitus) ICD Code: E11.9 Status: Chronic Assessment and Plan CVA (cerebral vascular accident): 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 Significant residual cognitive deficit. Poor fci prognosis. 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 Nonverbal at this time; appears to be in a locked in state. - Continue Keppra and Coumadin- Palliative care following. Monitor Keppra level periodically. - evaluated by neurology; continue Keppra. - cont Paxil as per family request. Large sacral necrotic mass (6.[address] posterior to sacrum) with destruction of coccyx - stage IV decubitus ulcer versus hematoma vs possible destructive mass - s/p plastics eval who has now signed off. CRS consulted. Discussed with family, including patient's cousin who is a physician in [place]. - CRS: diverting colostomy tentatively planned for Sunday 05/06. - Palliative care is following. Pt made alternative code. - cultures +klebsiella. pt on abx per ID. - no anticoagulation due to bleeding from the wound. cont wound care (packing daily). - The patient would not be likely to heal from this large wound given his immobility. - monitor CBC- and H stable - d/w family- wants to pursue aggressive- they are not ready for hospice at this point Fluid overload/edema With positive fluid balance, generalized edema. - started Lasix 20 mg IV daily, with albumin, k-lyte 25 meq PEG BID. - monitor I/O. - follow BMP. Respiratory failure Secondary to CVA. Patient is status post tracheostomy. Pulmonary following. Copious secretions. S/p course of Zyvox. - on Fi02 35%- d/w RT taper to 28% as toelrated - Levsin PRN secretions. needs suctioning - Duoneb q 6 - Xopenex q 2 prn - Follow up with pulmonology. - repeat CXR. - Lasix. Anemia of acute blood loss Secondary to bleeding from the wound. - H and H stable. GI/Nutrition Previous PEG tube exchanged by GI at bedside 03/30/2016. - dietary following. Depression - Continue Paxil. A-fib Rate better controlled. - on telmetry. - continue Lopressor, cardizem 90 mg qid. No coumadin due to significant bleeding from the sacral wound. History of Non-Hodgkin lymphoma S/p brain biopsy on December 13, by Neurosurgery, Dr. Marin, pathology consistent with acute infarct without evidence of lymphoma. - Seen by Oncology, Dr. Whyte, who has signed off. DM Hemoglobin A1c is 7%. - Continue Levemir with sliding scale insulin. DVT prophylaxis: no Coumadin due to wound bleeding. SCDs. Discharge Planning Awaiting clinical improvement. Problem Qualifiers (1) DM (diabetes mellitus): Qualified Code: E11.9 - Type 2 diabetes mellitus without complications Gerald Calhoun DO May 04, 2016 14:09
[2016-05-04] MEDS: RESP: LEVALBUTEROL HYDROCHLORIDE 0.63 MG/3 ML NEB (PRN) NEB (15:26)
--- NOTE | 2016-05-04 15:44 | RADRPT ---
EXAM DATE/TIME: 05/04/2016 15:05 [facility] COMPARISON: CHEST SINGLE AP, April 25, 2016, 18:10. INDICATIONS : Dyspnea. Shortness of breath MEDICAL HISTORY : Hypertension. Diabetes mellitus type II. Lymphoma. SURGICAL HISTORY : None. ENCOUNTER: Subsequent ACUITY: 1 week PAIN SCORE: Non-responsive. LOCATION: chest FINDINGS: A single AP semierect portable view of the chest was obtained and again demonstrates the tracheostomy tube in place. The mild scarring or atelectasis remains at the right lung base. No confluent infiltr ates or effusions. The heart size remains within normal limits with no perihilar edema. The bony thor ax remains intact overlying electrocardiogram leads. CONCLUSION: 1. Mild atelectasis or scarring remains the right lung base. 2. Tracheostomy tube in place with no evidence of pulmonary edema. Gerald Mukherjee MD on May 04, 2016 at 15:38 Board Certified Radiologist. This report was verified electronically.
[2016-05-04] MEDS: PARoxetine HCL SUSP 20 MG/10 ML UDC PEG SCH (18:21)
[2016-05-04] MEDS: INSULIN DETEMIR 100 UNITS/ML VIAL SQ SCH (21:49)
[2016-05-05] VITALS (10 sets, daily range): BP systolic 113–129; BP diastolic 67–78; PULSE 76–91; RESP 17–18; TEMP 97–98.4; O2SAT 97–99
[2016-05-05] MEDS: ACETAMINOPHEN/HYDROcodone 325 MG/5 MG TAB PEG SCH ×4 (00:38→17:00)
[2016-05-05] MEDS: FREE WATER TUBE SCH ×6 (04:00→20:00)
[2016-05-05] MEDS: ACETIC ACID 0.25% SOLN 1000 ML IRR BTL IRRIGATION SCH ×3 (05:51→22:00)
[2016-05-05] MEDS: INSULIN ASPART SUPPLEMENTAL SCALE SQ SCH ×4 (05:55→21:00)
[2016-05-05] MEDS: RESP: LEVALBUTEROL HYDROCHLORIDE 1.25 MG/3 ML NEB (SCH) NEB ×2 (08:00)
[2016-05-05] MEDS: levETIRAcetam 500 MG/5 ML UDC TUBE SCH ×2 (08:06→22:12)
[2016-05-05] MEDS: FUROSEMIDE 20 MG/2 ML VIAL IV PUSH SCH (08:07)
[2016-05-05] MEDS: LACTULOSE SYRUP 20 GM/30 ML CUP PEG SCH (08:07)
[2016-05-05] MEDS: LACTOBACILLUS ACIDOPHILUS TAB PEG SCH ×2 (08:07→22:08)
[2016-05-05] MEDS: POTASSIUM CHLORIDE 25 MEQ EFFERVESCENT TAB TUBE SCH ×2 (08:07→22:08)
[2016-05-05] MEDS: DILTIAZEM HCL 90 MG TAB PEG SCH ×4 (08:07→22:08)
[2016-05-05] MEDS: RANITIDINE HCL SYRUP 150 MG/10 ML UDC PO SCH (08:07)
[2016-05-05] MEDS: SENNOSIDES SYRUP 8.8 MG/5 ML CUP TUBE SCH (08:08)
[2016-05-05] MEDS: METOPROLOL TARTRATE 50 MG TAB PO SCH ×2 (08:08→22:09)
[2016-05-05] MEDS: ALBUMIN HUMAN 25% 12.5 GM/50 ML BAGP IV SCH (08:09)
[2016-05-05] MEDS: ARTIFICIAL TEARS OPTH OINT 3.5 APPLIC/3.5 GM TUBO EACH EYE SCH ×2 (08:10→21:00)
[2016-05-05] MEDS: NYSTATIN 100,000 U/GM PWD 15 GM BTL TOPICAL SCH ×2 (08:11→21:00)
[2016-05-05] MEDS: RESP: LEVALBUTEROL HYDROCHLORIDE 0.63 MG/3 ML NEB (SCH) NEB ×2 (08:28→17:06)
--- NOTE | 2016-05-05 09:14 | HHI.PR ---
Subjective Remarks The patient appeared comfortable. No acute concerns at this time. Discussed with nursing. Objective Vitals Vital Signs Date Time Temp Pulse Resp B/P Pulse Ox O2 Delivery O2 Flow Rate FiO2 05/05/16 08:50 100 Trach Collar 28 T-Piece 05/05/16 08:33 99 T-piece 28 05/05/16 08:33 99 T-piece 28 05/05/16 04:00 97.6 83 18 121/69 99 05/05/16 00:45 97.0 76 18 115/69 99 05/04/16 20:53 97.8 89 18 145/77 99 05/04/16 19:00 89 05/04/16 16:00 95.1 86 18 112/71 100 05/04/16 15:28 95 T-piece 6.00 28 05/04/16 15:28 95 T-piece 6.00 28 05/04/16 12:00 95.6 103 16 144/82 95 I/O 05/04/16 05/04/16 05/04/16 05/05/16 05/05/16 05/05/16 07:00 15:00 23:00 07:00 15:00 23:00 Output Total 1000 ml 700 ml 300 ml Balance -1000 ml -700 ml -300 ml Output Urine Total 1000 ml 700 ml 300 ml # Bowel Movements 1 1 0 Imaging Last Impressions Chest X-Ray 05/04/16 0000 Signed Impressions: Service Date/Time: Wednesday, May 04, 2016 15:05 - CONCLUSION: 1. Mild atelectasis or scarring remains the right lung base. 2. Tracheostomy tube in place with no evidence of pulmonary edema. Gerald Mukherjee MD Abdomen/Pelvis CT 04/12/16 0000 Signed Impressions: Service Date/Time: Tuesday, April 12, 2016 20:52 - CONCLUSION: 1. 6.4 cm necrotic mass or abscess in the soft tissues posteriorly just below the sacrum associated with some bony destructive change of the lower most sacrum and coccyx with inflammatory changes extending into the ischiorectal fossa and into the presacral retroperitoneum predominantly on the left side. There is associated fairly marked mural thickening of the anal verge and rectum. 2. There is gastrostomy and Arevalo catheter present. Stable abdominal aortic aneurysm. Durga Dotson MD Head Magnetic Resonance Angiography 03/05/16 0000 Signed Impressions: Service Date/Time: Saturday, March 05, 2016 09:26 - CONCLUSION: Persistent high-grade subtotal occlusive stenotic lesions in the distal right vertebral artery and proximal basilar artery with significant improvement in flow and recanalization following initial presentation of thrombosis. Stable interstitial circulation without significant stenosis. 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 There is decreasing restricted diffusion and increasing loss of volume characteristic of a subacute to chronic infarct. No evidence of acute infarct, acute hemorrhage mass or edema. Ernesto Kulkarni MD Head CT 01/16/16 0000 Signed Impressions: Service Date/Time: Saturday, January 16, 2016 10:51 - CONCLUSION: No extensive low density in the brainstem colin more prominent in the right the left extending into the right middle cerebellar peduncle consistent with brainstem infarct nonhemorrhagic acute Wellington West MD Abdomen X-Ray 01/14/16 0000 Signed Impressions: Service Date/Time: Thursday, January 14, 2016 10:19 - CONCLUSION: Moderate stool; otherwise, negative. 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 No evidence of carotid stenosis. Glen Zamora MD Head/Brain Mag Res Venography 12/22/15 0000 Signed Impressions: Service Date/Time: Tuesday, December 22, 2015 09:22 - CONCLUSION: Normal MRV. Jonel Jones Jr., MD Objective Remarks GENERAL: Resting comfortably. SKIN: Warm and dry. HEAD: Normocephalic. EYES: No scleral icterus. No injection or drainage. NECK: trach in place. CARDIOVASCULAR: Regular rate and rhythm without murmurs, gallops, or rubs. RESPIRATORY: Breath sounds equal bilaterally. No accessory muscle use. GASTROINTESTINAL: Abdomen soft, non-tender, nondistended. PEG tube in place. EXTREMITIES: 1+ edema of hands and legs. NEUROLOGICAL: Awake, alert. Does not follow commands. Does not appear to track consistently with eyes. Procedures 01/02/16 PEG placement 01/02/16 tracheostomy Medications and IVs Current Medications Medications (Trade) Dose Ordered Sig/Junior Route Start Time Stop Time Status Last Admin (NS Flush) 2 ml UNSCH PRN IVF 12/21/15 06:00 05/01/16 21:53 (Keppra Liq) 500 mg Q12HR TUBE 12/27/15 21:00 05/05/16 08:06 (Tylenol 650 Mg/ 20 ml Liq) 650 mg Q6H PRN TUBE 12/30/15 15:15 04/22/16 14:42 ([place] 5-325 Mg) 1 tab Q6H PRN PO 12/31/15 15:00 04/18/16 12:42 (Mycostatin Powder) 1 applic Q12HR TOPICAL 01/08/16 21:00 05/05/16 08:11 (Pill Splitter) 1 ea UNSCH PRN OTHER 01/14/16 08:30 (Zantac Liq) 150 mg Q24H PO 01/18/16 09:00 05/05/16 08:07 (Acetic Acid 0.25% Irr Btl) 10 ml Q8HR IRRIGATION 02/05/16 16:00 05/05/16 05:51 (Senna Liq) 8.8 mg DAILY TUBE 02/21/16 09:00 05/05/16 08:08 (Ativan Inj) 0.5 mg Q4H PRN IV PUSH 03/07/16 23:00 (Paxil Liq) 20 mg DAILY@1900 PEG 03/12/16 19:00 05/04/16 18:21 (Levemir Inj) 35 units HS SQ 03/24/16 21:00 05/04/16 21:49 (Lopressor) 75 mg BID PO 04/02/16 21:00 05/05/16 08:08 (Lacrilube Opht Oint) 1 applic Q12HR EACH EYE 04/10/16 11:00 05/05/16 08:10 (Levsin) 0.25 mg Q4H PRN G-TUBE 04/11/16 10:30 04/30/16 08:30 (Coumadin) 3 mg DAILY@16 PO 04/13/16 16:00 Hold (Zofran Inj) 4 mg Q6HR PRN IV PUSH 04/14/16 19:45 (Free Water) 200 ml Q4HR TUBE 04/16/16 12:00 05/05/16 08:00 ([place] 5-325 Mg) 1 tab Q6HR PEG 04/18/16 18:00 05/05/16 05:51 (Lactulose Liq) 30 ml DAILY PEG 04/20/16 09:00 05/05/16 08:07 (D50w (Vial) Inj) 25 ml UNSCH PRN IV 04/20/16 12:00 (Glucagon Inj) 1 mg UNSCH PRN IM/SQ 04/20/16 12:00 (Lactinex) 1 tab Q12HR PEG 04/22/16 09:00 05/05/16 08:07 (K-Lyte Cl Eff) 25 meq Q12HR TUBE 04/22/16 09:00 05/05/16 08:07 (Lasix Inj) 20 mg DAILY IV PUSH 04/25/16 09:00 05/05/16 08:07 (Albumin 25% Inj) 12.5 gm DAILY IV 04/25/16 10:00 05/05/16 08:09 Diltiazem HCl 90 mg 90 mg QID PEG 04/25/16 21:00 05/05/16 08:07 Cefazolin Sodium/ Dextrose 50 ml @ 100 mls/hr ONCE ONCE IV 05/06/16 14:00 05/06/16 14:29 Metronidazole 100 ml @ 100 mls/hr ONCE ONCE IV 05/06/16 14:00 05/06/16 14:59 (Rocephin Inj/NS Inj) 100 ml @ 200 mls/hr Q24H IV 05/03/16 12:00 05/04/16 12:45 Date of Insertion: Mar 07, 2016 A/P Problem List: (1) CVA (cerebral vascular accident) ICD Code: I63.9 Status: Acute (2) A-fib ICD Code: I48.91 Status: Chronic (3) DM (diabetes mellitus) ICD Code: E11.9 Status: Chronic Assessment and Plan CVA (cerebral vascular accident): 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 Significant residual cognitive deficit. 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 Nonverbal at this time; appears to be in a locked in state. - Continue Keppra and Coumadin- Palliative care following. Monitor Keppra level periodically. - evaluated by neurology; continue Keppra. - cont Paxil as per family request. Large sacral necrotic mass (6.[address] posterior to sacrum) with destruction of coccyx - stage IV decubitus ulcer versus hematoma vs possible destructive mass - s/p plastics eval who has now signed off. CRS consulted. Discussed with family, including patient's cousin who is a physician in [place]. - CRS: diverting colostomy tentatively planned for Sunday 05/06. - Palliative care is following. Pt made alternative code. - cultures +klebsiella. pt on abx per ID. - no anticoagulation due to bleeding from the wound. cont wound care (packing daily). - The patient would not be likely to heal from this large wound given his immobility. - monitor CBC- and H stable - d/w family- wants to pursue aggressive- they are not ready for hospice at this point Fluid overload/edema With positive fluid balance, generalized edema. - started Lasix 20 mg IV daily, with albumin, k-lyte 25 meq PEG BID. - monitor I/O. - follow BMP. Respiratory failure Secondary to CVA. Patient is status post tracheostomy. Pulmonary following. Copious secretions. S/p course of Zyvox. Repeat chest x-ray 05/04/16 stable. - on Fi02 35%- d/w RT taper to 28% as toelrated - Levsin PRN secretions. needs suctioning - Duoneb q 6 - Xopenex q 2 prn - Follow up with pulmonology. - Lasix. Anemia of acute blood loss Secondary to bleeding from the wound. - H and H stable. GI/Nutrition Previous PEG tube exchanged by GI at bedside 03/30/2016. - dietary following. Depression - Continue Paxil. A-fib Rate better controlled. - on telmetry. - continue Lopressor, Cardizem 90 mg qid. No Coumadin due to significant bleeding from the sacral wound. History of Non-Hodgkin lymphoma S/p brain biopsy on December 13, by Neurosurgery, Dr. Marin, pathology consistent with acute infarct without evidence of lymphoma. - Seen by Oncology, Dr. Whyte, who has signed off. DM Hemoglobin A1c is 7%. - Continue Levemir with sliding scale insulin. DVT prophylaxis: no Coumadin due to wound bleeding. SCDs. Discharge Planning Awaiting clinical improvement. Problem Qualifiers (1) DM (diabetes mellitus): Qualified Code: E11.9 - Type 2 diabetes mellitus without complications Gerald Calhoun DO May 05, 2016 09:14
[2016-05-05] MEDS: cefTRIAXone INJ 2,000 MG in SODIUM CHLORIDE 0.9% INJ 100 ML IV SCH (11:47)
[2016-05-05] MEDS: PARoxetine HCL SUSP 20 MG/10 ML UDC PEG SCH (17:34)
[2016-05-05] MEDS: INSULIN DETEMIR 100 UNITS/ML VIAL SQ SCH (21:00)
[2016-05-06] VITALS (9 sets, daily range): BP systolic 101–140; BP diastolic 65–82; PULSE 76–99; RESP 18–22; TEMP 96.1–98.1; O2SAT 97–100
[2016-05-06] MEDS: RESP: LEVALBUTEROL HYDROCHLORIDE 0.63 MG/3 ML NEB (SCH) NEB ×4 (00:07→23:47)
[2016-05-06] MEDS: ACETAMINOPHEN/HYDROcodone 325 MG/5 MG TAB PEG SCH ×4 (00:36→18:10)
[2016-05-06] MEDS: FREE WATER TUBE SCH ×6 (04:00→20:00)
[2016-05-06] MEDS: ACETIC ACID 0.25% SOLN 1000 ML IRR BTL IRRIGATION SCH ×3 (06:00→21:38)
[2016-05-06 06:12] LABS: INTERNATIONAL NORMALIZED RATIO 1.2 RATIO; PROTHROMBIN TIME - PATIENT 11.9 SEC (9.8-11.4)
[2016-05-06] MEDS: INSULIN ASPART SUPPLEMENTAL SCALE SQ SCH ×4 (06:19→21:00)
[2016-05-06 06:28] LABS: BICARBONATE 28.1 MEQ/L (21.0-32.0); POTASSIUM 3.9 MEQ/L (3.5-5.1)
[2016-05-06] MEDS: ARTIFICIAL TEARS OPTH OINT 3.5 APPLIC/3.5 GM TUBO EACH EYE SCH ×2 (08:04→21:22)
[2016-05-06] MEDS: ALBUMIN HUMAN 25% 12.5 GM/50 ML BAGP IV SCH (08:05)
[2016-05-06] MEDS: POTASSIUM CHLORIDE 25 MEQ EFFERVESCENT TAB TUBE SCH ×2 (08:05→21:20)
[2016-05-06] MEDS: RANITIDINE HCL SYRUP 150 MG/10 ML UDC PO SCH (08:05)
[2016-05-06] MEDS: levETIRAcetam 500 MG/5 ML UDC TUBE SCH ×2 (08:05→21:21)
[2016-05-06] MEDS: SENNOSIDES SYRUP 8.8 MG/5 ML CUP TUBE SCH (08:05)
[2016-05-06] MEDS: DILTIAZEM HCL 90 MG TAB PEG SCH ×4 (08:05→21:21)
[2016-05-06] MEDS: LACTOBACILLUS ACIDOPHILUS TAB PEG SCH ×2 (08:05→21:21)
[2016-05-06] MEDS: FUROSEMIDE 20 MG/2 ML VIAL IV PUSH SCH (08:06)
[2016-05-06] MEDS: METOPROLOL TARTRATE 50 MG TAB PO SCH ×2 (08:06→21:21)
[2016-05-06] MEDS: NYSTATIN 100,000 U/GM PWD 15 GM BTL TOPICAL SCH ×2 (08:06→21:38)
[2016-05-06] MEDS: LACTULOSE SYRUP 20 GM/30 ML CUP PEG SCH (08:44)
--- NOTE | 2016-05-06 12:19 | HHI.PR ---
Subjective Remarks Family was at the bedside. Talked with the pt's daughter on the phone. There were concerns about the surgery and the pt's daughter wanted to hold off until she talked with the surgeon. No other acute complaints. Objective Vitals Vital Signs Date Time Temp Pulse Resp B/P Pulse Ox O2 Delivery O2 Flow Rate FiO2 05/06/16 09:53 98 T-piece 6.00 28 05/06/16 09:49 98 T-piece 6.00 28 05/06/16 08:46 100 Trach Collar 6.00 28 T-Piece 05/06/16 08:14 96.1 76 22 109/69 100 05/06/16 05:13 97.0 80 18 139/82 100 05/06/16 00:07 98 T-piece 6.00 28 05/06/16 00:07 99 T-piece 6.00 28 05/05/16 23:40 97.5 91 18 129/78 99 05/05/16 20:16 97.1 85 18 124/77 97 05/05/16 20:09 91 05/05/16 19:00 82 05/05/16 17:00 98.2 88 18 117/67 98 I/O 05/05/16 05/05/16 05/05/16 05/06/16 05/06/16 05/06/16 07:00 15:00 23:00 07:00 15:00 23:00 Intake Total 900 ml Output Total 300 ml 400 ml 350 ml 1501 ml Balance -300 ml 900 ml -400 ml -350 ml -1501 ml Intake Oral 900 ml Output Urine Total 300 ml 400 ml 350 ml 1500 ml Stool Total 1 ml # Bowel Movements 0 3 1 3 Result Diagram: 05/06/16 0550 Imaging Last Impressions Chest X-Ray 05/04/16 0000 Signed Impressions: Service Date/Time: Wednesday, May 04, 2016 15:05 - CONCLUSION: 1. Mild atelectasis or scarring remains the right lung base. 2. Tracheostomy tube in place with no evidence of pulmonary edema. Gerald Mukherjee MD Abdomen/Pelvis CT 04/12/16 0000 Signed Impressions: Service Date/Time: Tuesday, April 12, 2016 20:52 - CONCLUSION: 1. 6.4 cm necrotic mass or abscess in the soft tissues posteriorly just below the sacrum associated with some bony destructive change of the lower most sacrum and coccyx with inflammatory changes extending into the ischiorectal fossa and into the presacral retroperitoneum predominantly on the left side. There is associated fairly marked mural thickening of the anal verge and rectum. 2. There is gastrostomy and Arevalo catheter present. Stable abdominal aortic aneurysm. Durga Dotson MD Head Magnetic Resonance Angiography 03/05/16 0000 Signed Impressions: Service Date/Time: Saturday, March 05, 2016 09:26 - CONCLUSION: Persistent high-grade subtotal occlusive stenotic lesions in the distal right vertebral artery and proximal basilar artery with significant improvement in flow and recanalization following initial presentation of thrombosis. Stable interstitial circulation without significant stenosis. 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 There is decreasing restricted diffusion and increasing loss of volume characteristic of a subacute to chronic infarct. No evidence of acute infarct, acute hemorrhage mass or edema. Ernesto Kulkarni MD Head CT 01/16/16 0000 Signed Impressions: Service Date/Time: Saturday, January 16, 2016 10:51 - CONCLUSION: No extensive low density in the brainstem colin more prominent in the right the left extending into the right middle cerebellar peduncle consistent with brainstem infarct nonhemorrhagic acute Wellington West MD Abdomen X-Ray 01/14/16 0000 Signed Impressions: Service Date/Time: Thursday, January 14, 2016 10:19 - CONCLUSION: Moderate stool; otherwise, negative. 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 No evidence of carotid stenosis. Glen Zamora MD Head/Brain Mag Res Venography 12/22/15 0000 Signed Impressions: Service Date/Time: Tuesday, December 22, 2015 09:22 - CONCLUSION: Normal MRV. Jonel Jones Jr., MD Objective Remarks GENERAL: Resting comfortably. SKIN: Warm and dry. HEAD: Normocephalic. EYES: No scleral icterus. No injection or drainage. NECK: trach in place. CARDIOVASCULAR: Regular rate and rhythm without murmurs, gallops, or rubs. RESPIRATORY: Breath sounds equal bilaterally. No accessory muscle use. GASTROINTESTINAL: Abdomen soft, non-tender, nondistended. PEG tube in place. EXTREMITIES: 1+ edema of hands and legs. NEUROLOGICAL: Awake, alert. Does not follow commands. Does not appear to track consistently with eyes. Procedures 01/02/16 PEG placement 01/02/16 tracheostomy Medications and IVs Current Medications Medications (Trade) Dose Ordered Sig/Junior Route Start Time Stop Time Status Last Admin (NS Flush) 2 ml UNSCH PRN IVF 12/21/15 06:00 05/01/16 21:53 (Keppra Liq) 500 mg Q12HR TUBE 12/27/15 21:00 05/06/16 08:05 (Tylenol 650 Mg/ 20 ml Liq) 650 mg Q6H PRN TUBE 12/30/15 15:15 04/22/16 14:42 ([place] 5-325 Mg) 1 tab Q6H PRN PO 12/31/15 15:00 04/18/16 12:42 (Mycostatin Powder) 1 applic Q12HR TOPICAL 01/08/16 21:00 05/06/16 08:06 (Pill Splitter) 1 ea UNSCH PRN OTHER 01/14/16 08:30 (Zantac Liq) 150 mg Q24H PO 01/18/16 09:00 05/06/16 08:05 (Acetic Acid 0.25% Irr Btl) 10 ml Q8HR IRRIGATION 02/05/16 16:00 05/06/16 06:00 (Senna Liq) 8.8 mg DAILY TUBE 02/21/16 09:00 05/06/16 08:05 (Ativan Inj) 0.5 mg Q4H PRN IV PUSH 03/07/16 23:00 (Paxil Liq) 20 mg DAILY@1900 PEG 03/12/16 19:00 05/05/16 17:34 (Levemir Inj) 35 units HS SQ 03/24/16 21:00 05/05/16 21:00 (Lopressor) 75 mg BID PO 04/02/16 21:00 05/06/16 08:06 (Lacrilube Opht Oint) 1 applic Q12HR EACH EYE 04/10/16 11:00 05/06/16 08:04 (Levsin) 0.25 mg Q4H PRN G-TUBE 04/11/16 10:30 04/30/16 08:30 (Coumadin) 3 mg DAILY@16 PO 04/13/16 16:00 Hold (Zofran Inj) 4 mg Q6HR PRN IV PUSH 04/14/16 19:45 (Free Water) 200 ml Q4HR TUBE 04/16/16 12:00 05/06/16 08:00 ([place] 5-325 Mg) 1 tab Q6HR PEG 04/18/16 18:00 05/06/16 06:09 (Lactulose Liq) 30 ml DAILY PEG 04/20/16 09:00 05/05/16 08:07 (D50w (Vial) Inj) 25 ml UNSCH PRN IV 04/20/16 12:00 (Glucagon Inj) 1 mg UNSCH PRN IM/SQ 04/20/16 12:00 (Lactinex) 1 tab Q12HR PEG 04/22/16 09:00 05/06/16 08:05 (K-Lyte Cl Eff) 25 meq Q12HR TUBE 04/22/16 09:00 05/06/16 08:05 (Lasix Inj) 20 mg DAILY IV PUSH 04/25/16 09:00 05/06/16 08:06 (Albumin 25% Inj) 12.5 gm DAILY IV 04/25/16 10:00 05/06/16 08:05 Diltiazem HCl 90 mg 90 mg QID PEG 04/25/16 21:00 05/06/16 08:05 Cefazolin Sodium/ Dextrose 50 ml @ 100 mls/hr ONCE ONCE IV 05/06/16 14:00 05/06/16 14:29 Future Hold Metronidazole 100 ml @ 100 mls/hr ONCE ONCE IV 05/06/16 14:00 05/06/16 14:59 (Rocephin Inj/NS Inj) 100 ml @ 200 mls/hr Q24H IV 05/03/16 12:00 05/05/16 11:47 Date of Insertion: Mar 07, 2016 A/P Problem List: (1) CVA (cerebral vascular accident) ICD Code: I63.9 Status: Acute (2) A-fib ICD Code: I48.91 Status: Chronic (3) DM (diabetes mellitus) ICD Code: E11.9 Status: Chronic Assessment and Plan CVA (cerebral vascular accident): 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 Significant residual cognitive deficit. 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 Nonverbal at this time; appears to be in a locked in state. - Continue Keppra and Coumadin- Palliative care following. Monitor Keppra level periodically. - evaluated by neurology; continue Keppra. - cont Paxil as per family request. Large sacral necrotic mass (6.[address] posterior to sacrum) with destruction of coccyx - stage IV decubitus ulcer versus hematoma vs possible destructive mass - s/p plastics eval who has now signed off. CRS consulted. Discussed with family, including patient's cousin who is a physician in [place]. - CRS: diverting colostomy on hold as daughter would like to discuss further with the surgeon. It was planned for 05/06. - Palliative care is following. Pt made alternative code. - cultures +klebsiella. pt on abx per ID. - no anticoagulation due to bleeding from the wound. cont wound care (packing daily). - The patient would not be likely to heal from this large wound given his immobility. - monitor CBC- H/H stable. - d/w family- wants to pursue aggressive- they are not ready for hospice at this point. Fluid overload/edema With positive fluid balance, generalized edema. - started Lasix 20 mg IV daily, with albumin, k-lyte 25 meq PEG BID. - monitor I/O. - follow BMP. Respiratory failure Secondary to CVA. Patient is status post tracheostomy. Pulmonary following. Copious secretions. S/p course of Zyvox. Repeat chest x-ray 05/04/16 stable. - on Fi02 35%- d/w RT taper to 28% as toelrated - Levsin PRN secretions. needs suctioning - Duoneb q 6 - Xopenex q 2 prn - Follow up with pulmonology. - Lasix. Anemia of acute blood loss Secondary to bleeding from the wound. - H and H stable. GI/Nutrition Previous PEG tube exchanged by GI at bedside 03/30/2016. - dietary following. Depression - Continue Paxil. A-fib Rate better controlled. - on telmetry. - continue Lopressor, Cardizem 90 mg qid. No Coumadin due to significant bleeding from the sacral wound. History of Non-Hodgkin lymphoma S/p brain biopsy on December 13, by Neurosurgery, Dr. Marin, pathology consistent with acute infarct without evidence of lymphoma. - Seen by Oncology, Dr. Whyte, who has signed off. DM Hemoglobin A1c is 7%. - Continue Levemir with sliding scale insulin. DVT prophylaxis: no Coumadin due to wound bleeding. SCDs. Discharge Planning Awaiting clinical improvement. Problem Qualifiers (1) DM (diabetes mellitus): Qualified Code: E11.9 - Type 2 diabetes mellitus without complications Gerald Calhoun DO May 06, 2016 12:19
[2016-05-06] MEDS: cefTRIAXone INJ 2,000 MG in SODIUM CHLORIDE 0.9% INJ 100 ML IV SCH (12:32)
--- NOTE | 2016-05-06 14:53 | HHI.PR ---
Subjective Remarks Decubitus ulcer, Stroke No significant change Objective Vital Signs Date Time Temp Pulse Resp B/P Pulse Ox O2 Delivery O2 Flow Rate FiO2 05/06/16 12:05 96.7 79 22 101/65 98 05/06/16 09:53 98 T-piece 6.00 28 05/06/16 09:49 98 T-piece 6.00 28 05/06/16 08:46 100 Trach Collar 6.00 28 T-Piece 05/06/16 08:14 96.1 76 22 109/69 100 05/06/16 05:13 97.0 80 18 139/82 100 05/06/16 00:07 98 T-piece 6.00 28 05/06/16 00:07 99 T-piece 6.00 28 05/05/16 23:40 97.5 91 18 129/78 99 05/05/16 20:16 97.1 85 18 124/77 97 05/05/16 20:09 91 05/05/16 19:00 82 05/05/16 17:00 98.2 88 18 117/67 98 I/O 05/05/16 05/05/16 05/05/16 05/06/16 05/06/16 05/06/16 07:00 15:00 23:00 07:00 15:00 23:00 Intake Total 900 ml Output Total 300 ml 400 ml 350 ml 1501 ml Balance -300 ml 900 ml -400 ml -350 ml -1501 ml Intake Oral 900 ml Output Urine Total 300 ml 400 ml 350 ml 1500 ml Stool Total 1 ml # Bowel Movements 0 3 1 3 Result Diagram: 05/06/16 0550 Procedures Procedures 01/02/16 PEG placement 01/02/16 tracheostomy Objective Remarks no change Assessment and Plan Assessment and Plan Per patient family, surgery cancelled Will sign off. Family will call me if they desire intervention. Spoke with daughter Taya Leyva MD May 06, 2016 14:52
[2016-05-06] MEDS: PARoxetine HCL SUSP 20 MG/10 ML UDC PEG SCH (18:30)
[2016-05-06] MEDS: INSULIN DETEMIR 100 UNITS/ML VIAL SQ SCH (21:21)
[2016-05-07] VITALS (10 sets, daily range): BP systolic 105–126; BP diastolic 62–83; PULSE 77–94; RESP 18–22; TEMP 96.3–98.7; O2SAT 96–100
[2016-05-07] MEDS: ACETAMINOPHEN/HYDROcodone 325 MG/5 MG TAB PEG SCH ×4 (00:45→16:46)
[2016-05-07] MEDS: FREE WATER TUBE SCH ×6 (00:50→20:00)
[2016-05-07] MEDS: ACETIC ACID 0.25% SOLN 1000 ML IRR BTL IRRIGATION SCH ×3 (05:02→21:12)
[2016-05-07] MEDS: INSULIN ASPART SUPPLEMENTAL SCALE SQ SCH ×4 (06:01→20:39)
[2016-05-07] MEDS: POTASSIUM CHLORIDE 25 MEQ EFFERVESCENT TAB TUBE SCH ×2 (08:00→20:38)
[2016-05-07] MEDS: DILTIAZEM HCL 90 MG TAB PEG SCH ×4 (08:00→20:38)
[2016-05-07] MEDS: LACTULOSE SYRUP 20 GM/30 ML CUP PEG SCH (08:00)
[2016-05-07] MEDS: RESP: LEVALBUTEROL HYDROCHLORIDE 0.63 MG/3 ML NEB (SCH) NEB ×2 (08:00→16:00)
[2016-05-07] MEDS: FUROSEMIDE 20 MG/2 ML VIAL IV PUSH SCH (08:00)
[2016-05-07] MEDS: LACTOBACILLUS ACIDOPHILUS TAB PEG SCH ×2 (08:00→20:38)
[2016-05-07] MEDS: ALBUMIN HUMAN 25% 12.5 GM/50 ML BAGP IV SCH (08:00)
[2016-05-07] MEDS: RANITIDINE HCL SYRUP 150 MG/10 ML UDC PO SCH (08:00)
[2016-05-07] MEDS: METOPROLOL TARTRATE 50 MG TAB PO SCH ×2 (08:00→20:38)
[2016-05-07] MEDS: SENNOSIDES SYRUP 8.8 MG/5 ML CUP TUBE SCH (08:00)
[2016-05-07] MEDS: levETIRAcetam 500 MG/5 ML UDC TUBE SCH ×2 (08:00→20:37)
[2016-05-07] MEDS: ARTIFICIAL TEARS OPTH OINT 3.5 APPLIC/3.5 GM TUBO EACH EYE SCH ×2 (08:01→21:11)
[2016-05-07] MEDS: NYSTATIN 100,000 U/GM PWD 15 GM BTL TOPICAL SCH ×2 (08:02→21:12)
--- NOTE | 2016-05-07 10:41 | HHI.PR ---
Subjective Remarks seen with nurse and mom at bedside sacral wound - no active bleeding tolerating tube feeding at maximum rate minimal secretions on suctioning surgery for diverting colostomy - cancelled Objective Vitals Vital Signs Date Time Temp Pulse Resp B/P Pulse Ox O2 Delivery O2 Flow Rate FiO2 05/07/16 10:21 84 05/07/16 10:15 96 T-piece 4.00 28 05/07/16 10:15 96 T-piece 4.00 28 05/07/16 08:10 98.0 93 20 116/71 99 05/07/16 07:58 Trach Collar 5.00 28 T-Piece 05/07/16 06:44 87 05/07/16 04:00 97.8 94 18 112/83 97 05/07/16 01:00 100 Trach Collar 6.00 28 T-Piece 05/07/16 00:00 98.7 84 18 119/70 100 05/06/16 20:01 98 T-piece 6.00 28 05/06/16 20:00 98.1 91 18 136/72 97 05/06/16 16:05 96.7 99 20 140/74 100 05/06/16 12:05 96.7 79 22 101/65 98 I/O 05/06/16 05/06/16 05/06/16 05/07/16 05/07/16 05/07/16 07:00 15:00 23:00 07:00 15:00 23:00 Output Total 350 ml 2251 ml 975 ml Balance -350 ml -2251 ml -975 ml Output Urine Total 350 ml 2250 ml 975 ml Stool Total 1 ml # Bowel Movements 3 4 1 Result Diagram: 05/06/16 0550 Imaging Last Impressions Chest X-Ray 05/04/16 0000 Signed Impressions: Service Date/Time: Wednesday, May 04, 2016 15:05 - CONCLUSION: 1. Mild atelectasis or scarring remains the right lung base. 2. Tracheostomy tube in place with no evidence of pulmonary edema. Gerald Mukherjee MD Abdomen/Pelvis CT 04/12/16 0000 Signed Impressions: Service Date/Time: Tuesday, April 12, 2016 20:52 - CONCLUSION: 1. 6.4 cm necrotic mass or abscess in the soft tissues posteriorly just below the sacrum associated with some bony destructive change of the lower most sacrum and coccyx with inflammatory changes extending into the ischiorectal fossa and into the presacral retroperitoneum predominantly on the left side. There is associated fairly marked mural thickening of the anal verge and rectum. 2. There is gastrostomy and Lopez catheter present. Stable abdominal aortic aneurysm. Durga Dotson MD Head Magnetic Resonance Angiography 03/05/16 0000 Signed Impressions: Service Date/Time: Saturday, March 05, 2016 09:26 - CONCLUSION: Persistent high-grade subtotal occlusive stenotic lesions in the distal right vertebral artery and proximal basilar artery with significant improvement in flow and recanalization following initial presentation of thrombosis. Stable interstitial circulation without significant stenosis. 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 There is decreasing restricted diffusion and increasing loss of volume characteristic of a subacute to chronic infarct. No evidence of acute infarct, acute hemorrhage mass or edema. Ernesto Kulkarni MD Head CT 01/16/16 0000 Signed Impressions: Service Date/Time: Saturday, January 16, 2016 10:51 - CONCLUSION: No extensive low density in the brainstem colin more prominent in the right the left extending into the right middle cerebellar peduncle consistent with brainstem infarct nonhemorrhagic acute Wellington West MD Abdomen X-Ray 01/14/16 0000 Signed Impressions: Service Date/Time: Thursday, January 14, 2016 10:19 - CONCLUSION: Moderate stool; otherwise, negative. 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 No evidence of carotid stenosis. Glen Zamora MD Head/Brain Mag Res Venography 12/22/15 0000 Signed Impressions: Service Date/Time: Tuesday, December 22, 2015 09:22 - CONCLUSION: Normal MRV. Jonel Jones Jr., MD Objective Remarks eyes open, no purposeful movements pupils equal, anicteric mild facial asymmetry no gag reflex neck supple no rigidity, tracheostomy in place lungs- no rales or wheezes regular rhythm abdomen- soft, good bowel sounds, PEG site- no signs of erythema lopez in place back wound- wound packing in place extremities- generalized swelling- improved Procedures 01/02/16 PEG placement 01/02/16 tracheostomy Date of Insertion: Mar 07, 2016 A/P Problem List: (1) CVA (cerebral vascular accident) ICD Code: I63.9 Status: Acute (2) A-fib ICD Code: I48.91 Status: Chronic (3) DM (diabetes mellitus) ICD Code: E11.9 Status: Chronic Assessment and Plan 60-year-old male with: -CVA (cerebral vascular accident): 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 Significant residual cognitive deficit. -Nonverbal at this time; appears to be in a locked in state. Poor chcf prognosis. 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 -Continue Keppra and Coumadin- Palliative care following. Monitor Keppra level periodically. - evaluated by neurology; continue Keppra -cont Paxil as per family request. -Large sacral necrotic mass (6.[address] posterior to sacrum) with destruction of coccyx - stage IV decubitus ulcer versus hematoma vs possible destructive mass - s/p plastics eval (I discussed the patient previously with Dr. Yoder) who has now signed off. He recommended consulting colorectal to see if they would be able to address the area. - Dr. Chawla was substation operator apprentice for colorectal and recommended palliative care consultation also recommended if bleeding is a concern to consider to consult interventional radiology to see if embolization could provide hemostasis rather than a large surgery -CRS consult consulted - for evaluation if will benefit from diverting colostomy - - seen by Dr. Mars- vascular surgery - - the wound and the patients overall poor prognosis. hospice would be appropriate. Palliative care is following. cultures +klebsiella. pt on abx per ID. no anticoagulation due to bleeding from the wound. cont wound care (packing daily).- On Ceftriaxone per Dr. Liu Discussed with family, including patient's cousin who is a physician in [place]. Dr. Gonzalez offered to discuss with plastic surgery getting a tissue diagnosis to rule out cancer if it would put the patient's family at ease, however pursuing aggressive surgery overlooks the patient's overall poor neurologic prognosis. The patient would not be likely to heal from this large wound given his immobility. - monitor CBC- and H stable - d/w family at bedside- wants to pursue aggressive- they are not ready for hospice at this point - Palliative care involved - 04/23- made alternative code - surgery cancelled today- per CRS notes- d/w staff nurse- needed a consent from another family member -Fluid overload/edema with positive fluid balance -generalized edema- continues to imrprove lasix 20 mg IV daily, with albumin, k-lyte 25 meq PEG BID, monitor I/O . ff BMP ff BMP Respiratory failure: Secondary to CVA. Patient is status post tracheostomy. Pulmonary following. on Fi02 35%- d/w RT taper to 28% as toelrated - Levsin PRN secretions. needs suctioning renew duoneb q 6 Xopenex q 2 prn Anemia of acute blood loss - secondary to bleeding from the wound. S/P transfuse 2 units pRBCs ff H and H H and H stable CRS- ff- surgery cancelled - -GI/Nutrition: Previous PEG tube exchanged by GI at bedside 03/30/2016. dietary ff. -Depression: Continue Paxil. -A-fib: rate better controlled- on telmetry- 04/28- in SR continue Lopressor, cardizem 90 mg qid. NO coumadin due to significant bleeding from the sacral wound. -Coccyx pressure ulcer- cont wound care. -History of Non-Hodgkin lymphoma: s/p brain biopsy on December 13, by Neurosurgery, Dr. Marin, Pathology consistent with acute infarct without evidence of lymphoma -Seen by Oncology, Dr. Whyte, who has signed off -DM: Hemoglobin A1c is 7.0. Continue Levemir with sliding scale insulin- monitor and adjust the regimen as needed. - MRSA in the sputum, tracheobronchitis. Chest x-ray 04/05 was clear. completed course of zyvox. mild hypokalemia; replaced. DVT prophylaxis: no coumadin due to wound bleeding. SCDs. Problem Qualifiers (1) DM (diabetes mellitus): Qualified Code: E11.9 - Type 2 diabetes mellitus without complications Soco Pickett MD May 07, 2016 10:41
[2016-05-07] MEDS: cefTRIAXone INJ 2,000 MG in SODIUM CHLORIDE 0.9% INJ 100 ML IV SCH (11:38)
[2016-05-07] MEDS: PARoxetine HCL SUSP 20 MG/10 ML UDC PEG SCH (18:25)
[2016-05-07] MEDS: INSULIN DETEMIR 100 UNITS/ML VIAL SQ SCH (20:38)
[2016-05-08] VITALS (10 sets, daily range): BP systolic 105–130; BP diastolic 67–84; PULSE 72–94; RESP 18–20; TEMP 96.4–98.7; O2SAT 95–99
[2016-05-08] MEDS: ACETAMINOPHEN/HYDROcodone 325 MG/5 MG TAB PEG SCH ×4 (00:43→17:05)
[2016-05-08] MEDS: FREE WATER TUBE SCH ×6 (05:00→20:00)
[2016-05-08] MEDS: ACETIC ACID 0.25% SOLN 1000 ML IRR BTL IRRIGATION SCH ×3 (05:36→22:59)
[2016-05-08] MEDS: INSULIN ASPART SUPPLEMENTAL SCALE SQ SCH ×4 (06:00→21:00)
[2016-05-08] MEDS: LACTULOSE SYRUP 20 GM/30 ML CUP PEG SCH (09:00)
[2016-05-08] MEDS: POTASSIUM CHLORIDE 25 MEQ EFFERVESCENT TAB TUBE SCH ×2 (09:01→20:59)
[2016-05-08] MEDS: SENNOSIDES SYRUP 8.8 MG/5 ML CUP TUBE SCH (09:01)
[2016-05-08] MEDS: RANITIDINE HCL SYRUP 150 MG/10 ML UDC PO SCH (09:01)
[2016-05-08] MEDS: levETIRAcetam 500 MG/5 ML UDC TUBE SCH ×2 (09:01→21:00)
[2016-05-08] MEDS: LACTOBACILLUS ACIDOPHILUS TAB PEG SCH ×2 (09:01→21:01)
[2016-05-08] MEDS: FUROSEMIDE 20 MG/2 ML VIAL IV PUSH SCH (09:01)
[2016-05-08] MEDS: METOPROLOL TARTRATE 50 MG TAB PO SCH ×2 (09:01→21:01)
[2016-05-08] MEDS: DILTIAZEM HCL 90 MG TAB PEG SCH ×4 (09:01→21:01)
[2016-05-08] MEDS: ARTIFICIAL TEARS OPTH OINT 3.5 APPLIC/3.5 GM TUBO EACH EYE SCH ×2 (09:02→21:45)
[2016-05-08] MEDS: ALBUMIN HUMAN 25% 12.5 GM/50 ML BAGP IV SCH (09:02)
[2016-05-08] MEDS: NYSTATIN 100,000 U/GM PWD 15 GM BTL TOPICAL SCH ×2 (09:02→21:00)
[2016-05-08] MEDS: RESP: LEVALBUTEROL HYDROCHLORIDE 0.63 MG/3 ML NEB (SCH) NEB ×4 (09:18→23:56)
--- NOTE | 2016-05-08 11:05 | HHI.PR ---
Subjective Remarks seen with Mom at bedside no acute events tolerated tube feedings had a good BM Objective Vitals Vital Signs Date Time Temp Pulse Resp B/P Pulse Ox O2 Delivery O2 Flow Rate FiO2 05/08/16 10:20 76 05/08/16 09:18 97 T-piece 28 05/08/16 09:18 97 T-piece 28 05/08/16 08:00 97.5 82 20 126/75 98 05/08/16 04:00 97.0 80 18 127/84 97 05/08/16 00:00 98.7 87 18 130/76 95 05/07/16 20:50 80 05/07/16 20:35 98 Trach Collar 5.00 28 T-Piece 05/07/16 19:30 98.0 91 20 126/72 98 05/07/16 17:46 17 05/07/16 17:14 21 05/07/16 16:09 96.3 87 22 105/63 100 05/07/16 12:15 98.3 77 20 106/62 99 I/O 05/07/16 05/07/16 05/07/16 05/08/16 05/08/16 05/08/16 07:00 15:00 23:00 07:00 15:00 23:00 Intake Total 4806 ml Output Total 975 ml 1100 ml 1000 ml Balance -975 ml 3706 ml -1000 ml IV Total 105 ml Tube Feeding 4301 ml Other 400 ml Output Urine Total 975 ml 1100 ml 1000 ml # Bowel Movements 1 4 2 Result Diagram: 05/06/16 0550 Imaging Last Impressions Chest X-Ray 05/04/16 0000 Signed Impressions: Service Date/Time: Wednesday, May 04, 2016 15:05 - CONCLUSION: 1. Mild atelectasis or scarring remains the right lung base. 2. Tracheostomy tube in place with no evidence of pulmonary edema. Gerald Mukherjee MD Abdomen/Pelvis CT 04/12/16 0000 Signed Impressions: Service Date/Time: Tuesday, April 12, 2016 20:52 - CONCLUSION: 1. 6.4 cm necrotic mass or abscess in the soft tissues posteriorly just below the sacrum associated with some bony destructive change of the lower most sacrum and coccyx with inflammatory changes extending into the ischiorectal fossa and into the presacral retroperitoneum predominantly on the left side. There is associated fairly marked mural thickening of the anal verge and rectum. 2. There is gastrostomy and Lopez catheter present. Stable abdominal aortic aneurysm. Durga Dotson MD Head Magnetic Resonance Angiography 03/05/16 0000 Signed Impressions: Service Date/Time: Saturday, March 05, 2016 09:26 - CONCLUSION: Persistent high-grade subtotal occlusive stenotic lesions in the distal right vertebral artery and proximal basilar artery with significant improvement in flow and recanalization following initial presentation of thrombosis. Stable interstitial circulation without significant stenosis. 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 There is decreasing restricted diffusion and increasing loss of volume characteristic of a subacute to chronic infarct. No evidence of acute infarct, acute hemorrhage mass or edema. Ernesto Kulkarni MD Head CT 01/16/16 0000 Signed Impressions: Service Date/Time: Saturday, January 16, 2016 10:51 - CONCLUSION: No extensive low density in the brainstem colin more prominent in the right the left extending into the right middle cerebellar peduncle consistent with brainstem infarct nonhemorrhagic acute Wellington West MD Abdomen X-Ray 01/14/16 0000 Signed Impressions: Service Date/Time: Thursday, January 14, 2016 10:19 - CONCLUSION: Moderate stool; otherwise, negative. Otcavio Ramírez MD FACR Neck Magnetic Resonance Angiography 12/22/15 1445 Signed Impressions: Service Date/Time: Tuesday, December 22, 2015 09:22 - CONCLUSION: Variant origin of the left vertebral artery from the aortic arch. No evidence of carotid stenosis. Glen Zamora MD Head/Brain Mag Res Venography 12/22/15 0000 Signed Impressions: Service Date/Time: Tuesday, December 22, 2015 09:22 - CONCLUSION: Normal MRV. Jonel Jones Jr., MD Objective Remarks eyes open, no purposeful movements pupils equal, anicteric mild facial asymmetry no gag reflex neck supple no rigidity, tracheostomy in place lungs- no rales or wheezes regular rhythm abdomen- soft, good bowel sounds, PEG site- no signs of erythema lopez in place back wound- wound packing in place extremities- generalized swelling- improved Procedures 01/02/16 PEG placement 01/02/16 tracheostomy Date of Insertion: Mar 07, 2016 A/P Problem List: (1) CVA (cerebral vascular accident) ICD Code: I63.9 Status: Acute (2) A-fib ICD Code: I48.91 Status: Chronic (3) DM (diabetes mellitus) ICD Code: E11.9 Status: Chronic Assessment and Plan 60-year-old male with: -CVA (cerebral vascular accident): 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 Significant residual cognitive deficit. -Nonverbal at this time; appears to be in a locked in state. 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 -Continue Keppra and Coumadin- Palliative care following. Monitor Keppra level periodically. - evaluated by neurology; continue Keppra -cont Paxil as per family request. -Large sacral necrotic mass (6.[address] posterior to sacrum) with destruction of coccyx - stage IV decubitus ulcer versus hematoma vs possible destructive mass - s/p plastics eval (I discussed the patient previously with Dr. Yoder) who has now signed off. He recommended consulting colorectal to see if they would be able to address the area. - Dr. Chawla was vocational education teacher for colorectal and recommended palliative care consultation also recommended if bleeding is a concern to consider to consult interventional radiology to see if embolization could provide hemostasis rather than a large surgery -CRS consult consulted - for evaluation if will benefit from diverting colostomy - - seen by Dr. Mars- vascular surgery - - the wound and the patients overall poor prognosis. hospice would be appropriate. Palliative care is following. cultures +klebsiella. pt on abx per ID. no anticoagulation due to bleeding from the wound. cont wound care (packing daily).- On Ceftriaxone per Dr. Liu Discussed with family, including patient's cousin who is a physician in [place]. Dr. Gonzalez offered to discuss with plastic surgery getting a tissue diagnosis to rule out cancer if it would put the patient's family at ease, however pursuing aggressive surgery overlooks the patient's overall poor neurologic prognosis. The patient would not be likely to heal from this large wound given his immobility. - monitor CBC- and H stable - d/w family at bedside- wants to pursue aggressive- they are not ready for hospice at this point - Palliative care involved - 04/23- made alternative code - surgery cancelled today- per CRS notes- d/w staff nurse- needed a consent from another family member -Fluid overload/edema with positive fluid balance -generalized edema- continues to imrprove lasix 20 mg IV daily, with albumin, k-lyte 25 meq PEG BID, monitor I/O . ff BMP ff BMP Respiratory failure: Secondary to CVA. Patient is status post tracheostomy. Pulmonary following. on Fi02 35%- d/w RT taper to 28% as toelrated - Levsin PRN secretions. needs suctioning renew duoneb q 6 Xopenex q 2 prn Anemia of acute blood loss - secondary to bleeding from the wound. S/P transfuse 2 units pRBCs ff H and H H and H stable CRS- ff- surgery cancelled - -GI/Nutrition: Previous PEG tube exchanged by GI at bedside 03/30/2016. dietary ff. -Depression: Continue Paxil. -A-fib: rate better controlled- continue Lopressor, cardizem 90 mg qid. NO coumadin due to significant bleeding from the sacral wound. -Coccyx pressure ulcer- cont wound care. -History of Non-Hodgkin lymphoma: s/p brain biopsy on December 13, by Neurosurgery, Dr. Marin, Pathology consistent with acute infarct without evidence of lymphoma -Seen by Oncology, Dr. Whyte, who has signed off -DM: Hemoglobin A1c is 7.0. Continue Levemir with sliding scale insulin- monitor and adjust the regimen as needed. - MRSA in the sputum, tracheobronchitis. Chest x-ray 04/05 was clear. completed course of zyvox. mild hypokalemia; replaced. DVT prophylaxis: no coumadin due to wound bleeding. SCDs. Problem Qualifiers (1) DM (diabetes mellitus): Qualified Code: E11.9 - Type 2 diabetes mellitus without complications Soco Pickett MD May 08, 2016 11:04
[2016-05-08] MEDS: cefTRIAXone INJ 2,000 MG in SODIUM CHLORIDE 0.9% INJ 100 ML IV SCH (11:37)
[2016-05-08] MEDS: PARoxetine HCL SUSP 20 MG/10 ML UDC PEG SCH (18:01)
[2016-05-08] MEDS: INSULIN DETEMIR 100 UNITS/ML VIAL SQ SCH (21:00)
[2016-05-09] VITALS (8 sets, daily range): BP systolic 117–166; BP diastolic 66–99; PULSE 80–103; RESP 18–22; TEMP 97.1–99; O2SAT 95–98
[2016-05-09] MEDS: FREE WATER TUBE SCH ×6 (00:35→21:45)
[2016-05-09] MEDS: ACETAMINOPHEN/HYDROcodone 325 MG/5 MG TAB PO PRN (04:55)
[2016-05-09] MEDS: ACETIC ACID 0.25% SOLN 1000 ML IRR BTL IRRIGATION SCH ×3 (05:07→21:45)
[2016-05-09] MEDS: ACETAMINOPHEN/HYDROcodone 325 MG/5 MG TAB PEG SCH ×4 (05:08→18:46)
[2016-05-09] MEDS: INSULIN ASPART SUPPLEMENTAL SCALE SQ SCH ×4 (06:08→21:45)
[2016-05-09] MEDS: RESP: LEVALBUTEROL HYDROCHLORIDE 0.63 MG/3 ML NEB (PRN) NEB (08:22)
[2016-05-09] MEDS: LACTOBACILLUS ACIDOPHILUS TAB PEG SCH ×2 (09:15→21:45)
[2016-05-09] MEDS: levETIRAcetam 500 MG/5 ML UDC TUBE SCH ×2 (09:15→21:45)
[2016-05-09] MEDS: DILTIAZEM HCL 90 MG TAB PEG SCH ×4 (09:15→21:45)
[2016-05-09] MEDS: METOPROLOL TARTRATE 50 MG TAB PO SCH ×2 (09:16→21:45)
[2016-05-09] MEDS: LACTULOSE SYRUP 20 GM/30 ML CUP PEG SCH (09:16)
[2016-05-09] MEDS: SENNOSIDES SYRUP 8.8 MG/5 ML CUP TUBE SCH (09:16)
[2016-05-09] MEDS: POTASSIUM CHLORIDE 25 MEQ EFFERVESCENT TAB TUBE SCH ×2 (09:16→21:45)
[2016-05-09] MEDS: RANITIDINE HCL SYRUP 150 MG/10 ML UDC PO SCH (09:16)
[2016-05-09] MEDS: ARTIFICIAL TEARS OPTH OINT 3.5 APPLIC/3.5 GM TUBO EACH EYE SCH ×2 (09:17→21:45)
[2016-05-09] MEDS: NYSTATIN 100,000 U/GM PWD 15 GM BTL TOPICAL SCH ×2 (09:17→21:45)
[2016-05-09] MEDS: cefTRIAXone INJ 2,000 MG in SODIUM CHLORIDE 0.9% INJ 100 ML IV SCH (12:01)
--- NOTE | 2016-05-09 14:01 | HHI.PR ---
Subjective Remarks tolerating tube feedings no acute events Objective Vitals Vital Signs Date Time Temp Pulse Resp B/P Pulse Ox O2 Delivery O2 Flow Rate FiO2 05/09/16 12:57 20 05/09/16 12:56 99.0 88 20 125/97 97 05/09/16 09:22 97.1 103 18 166/99 98 05/09/16 08:29 95 T-piece 5.00 28 05/09/16 08:29 95 T-piece 5.00 28 05/09/16 05:30 100 Trach Collar 5.00 35 05/09/16 04:00 97.3 96 20 130/78 97 05/09/16 00:00 97.3 87 20 123/73 98 05/08/16 20:55 84 05/08/16 20:00 97.1 94 20 121/71 98 05/08/16 16:57 96.4 85 20 114/67 98 05/08/16 15:30 99 T-piece 6.00 28 I/O 05/08/16 05/08/16 05/08/16 05/09/16 05/09/16 05/09/16 07:00 15:00 23:00 07:00 15:00 23:00 Output Total 1000 ml 350 ml 1150 ml 600 ml Balance -1000 ml -350 ml -1150 ml -600 ml Output Urine Total 1000 ml 350 ml 1150 ml 600 ml # Bowel Movements 2 1 2 2 Result Diagram: 05/06/16 0550 Imaging Last Impressions Chest X-Ray 05/04/16 0000 Signed Impressions: Service Date/Time: Wednesday, May 04, 2016 15:05 - CONCLUSION: 1. Mild atelectasis or scarring remains the right lung base. 2. Tracheostomy tube in place with no evidence of pulmonary edema. Gerald Mukherjee MD Abdomen/Pelvis CT 04/12/16 0000 Signed Impressions: Service Date/Time: Tuesday, April 12, 2016 20:52 - CONCLUSION: 1. 6.4 cm necrotic mass or abscess in the soft tissues posteriorly just below the sacrum associated with some bony destructive change of the lower most sacrum and coccyx with inflammatory changes extending into the ischiorectal fossa and into the presacral retroperitoneum predominantly on the left side. There is associated fairly marked mural thickening of the anal verge and rectum. 2. There is gastrostomy and Lopez catheter present. Stable abdominal aortic aneurysm. Durga Dotson MD Head Magnetic Resonance Angiography 03/05/16 0000 Signed Impressions: Service Date/Time: Saturday, March 05, 2016 09:26 - CONCLUSION: Persistent high-grade subtotal occlusive stenotic lesions in the distal right vertebral artery and proximal basilar artery with significant improvement in flow and recanalization following initial presentation of thrombosis. Stable interstitial circulation without significant stenosis. 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 There is decreasing restricted diffusion and increasing loss of volume characteristic of a subacute to chronic infarct. No evidence of acute infarct, acute hemorrhage mass or edema. Ernesto Kulkarni MD Head CT 01/16/16 0000 Signed Impressions: Service Date/Time: Saturday, January 16, 2016 10:51 - CONCLUSION: No extensive low density in the brainstem colin more prominent in the right the left extending into the right middle cerebellar peduncle consistent with brainstem infarct nonhemorrhagic acute Wellington West MD Abdomen X-Ray 01/14/16 0000 Signed Impressions: Service Date/Time: Thursday, January 14, 2016 10:19 - CONCLUSION: Moderate stool; otherwise, negative. 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 No evidence of carotid stenosis. Glen Zamora MD Head/Brain Mag Res Venography 12/22/15 0000 Signed Impressions: Service Date/Time: Tuesday, December 22, 2015 09:22 - CONCLUSION: Normal MRV. Jonel Jones Jr., MD Objective Remarks eyes open, no purposeful movements pupils equal, anicteric mild facial asymmetry no gag reflex neck supple no rigidity, tracheostomy in place lungs- no rales or wheezes regular rhythm abdomen- soft, good bowel sounds, PEG site- no signs of erythema lopez in place back wound- wound packing in place extremities- generalized swelling- improved Procedures 01/02/16 PEG placement 01/02/16 tracheostomy Date of Insertion: Mar 07, 2016 A/P Problem List: (1) CVA (cerebral vascular accident) ICD Code: I63.9 Status: Acute (2) A-fib ICD Code: I48.91 Status: Chronic (3) DM (diabetes mellitus) ICD Code: E11.9 Status: Chronic Assessment and Plan 60-year-old male with: -CVA (cerebral vascular accident): 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 Significant residual cognitive deficit. -Nonverbal at this time; appears to be in a locked in state. 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 -Continue Keppra and Coumadin- Palliative care following. Monitor Keppra level periodically. - evaluated by neurology; continue Keppra -cont Paxil as per family request. -Large sacral necrotic mass (6.[address] posterior to sacrum) with destruction of coccyx - stage IV decubitus ulcer versus hematoma vs possible destructive mass - s/p plastics eval (I discussed the patient previously with Dr. Yoder) who has now signed off. - Dr. Chawla was position classification specialist for colorectal and recommended palliative care consultation also recommended if bleeding is a concern to consider to consult interventional radiology to see if embolization could provide hemostasis rather than a large surgery - seen by Dr. Mars- vascular surgery - - the wound and the patients overall poor prognosis. hospice would be appropriate. Palliative care is following. cultures +klebsiella. pt on abx per ID. no anticoagulation due to bleeding from the wound. cont wound care (packing daily).- On Ceftriaxone per Dr. Liu Discussed with family, including patient's cousin who is a physician in [place]. Dr. Gonzalez offered to discuss with plastic surgery getting a tissue diagnosis to rule out cancer if it would put the patient's family at ease, however pursuing aggressive surgery overlooks the patient's overall poor neurologic prognosis. The patient would not be likely to heal from this large wound given his immobility. - monitor CBC- and H stable - family at bedside- wants to pursue aggressive- they are not ready for hospice at this point - Palliative care involved - 04/23- made alternative code surgery- diverting colostomy cancelled per CRS 06/06 - d/w staff nurse- needed a consent from another family member- family undecided d/w Mom - 05/09- they don't want it -Fluid overload/edema with positive fluid balance -generalized edema- continues to imrprove lasix 20 mg IV daily, with albumin, k-lyte 25 meq PEG BID, monitor I/O . ff BMP ff BMP Respiratory failure: Secondary to CVA. Patient is status post tracheostomy. Pulmonary following. on Fi02 35%- d/w RT taper to 28% as toelrated - Levsin PRN secretions. needs suctioning renew duoneb q 6 Xopenex q 2 prn Anemia of acute blood loss - secondary to bleeding from the wound. S/P transfuse 2 units pRBCs ff H and H H and H stable CRS- ff- surgery cancelled - -GI/Nutrition: Previous PEG tube exchanged by GI at bedside 03/30/2016. dietary ff. -Depression: Continue Paxil. -A-fib: rate better controlled- continue Lopressor, cardizem 90 mg qid. NO coumadin due to significant bleeding from the sacral wound. -Coccyx pressure ulcer- cont wound care. -History of Non-Hodgkin lymphoma: s/p brain biopsy on December 13, by Neurosurgery, Dr. Marin, Pathology consistent with acute infarct without evidence of lymphoma -Seen by Oncology, Dr. Whyte, who has signed off -DM: Hemoglobin A1c is 7.0. Continue Levemir with sliding scale insulin- monitor and adjust the regimen as needed. - MRSA in the sputum, tracheobronchitis. Chest x-ray 04/05 was clear. completed course of zyvox. mild hypokalemia; replaced. DVT prophylaxis: no coumadin due to wound bleeding. SCDs. Problem Qualifiers (1) DM (diabetes mellitus): Qualified Code: E11.9 - Type 2 diabetes mellitus without complications Soco Pickett MD May 09, 2016 14:01
[2016-05-09] MEDS: PARoxetine HCL SUSP 20 MG/10 ML UDC PEG SCH (18:45)
[2016-05-09] MEDS: INSULIN DETEMIR 100 UNITS/ML VIAL SQ SCH (21:45)
[2016-05-10] VITALS (11 sets, daily range): BP systolic 111–133; BP diastolic 62–77; PULSE 68–83; RESP 20–22; TEMP 97–97.7; O2SAT 98–100
[2016-05-10] MEDS: ACETAMINOPHEN/HYDROcodone 325 MG/5 MG TAB PEG SCH ×5 (00:50→23:37)
[2016-05-10] MEDS: FREE WATER TUBE SCH ×7 (04:00→23:37)
[2016-05-10] MEDS: INSULIN ASPART SUPPLEMENTAL SCALE SQ SCH ×4 (05:58→20:06)
[2016-05-10] MEDS: ACETIC ACID 0.25% SOLN 1000 ML IRR BTL IRRIGATION SCH ×3 (05:58→20:07)
[2016-05-10] MEDS: SENNOSIDES SYRUP 8.8 MG/5 ML CUP TUBE SCH (09:00)
[2016-05-10] MEDS: LACTULOSE SYRUP 20 GM/30 ML CUP PEG SCH (09:00)
[2016-05-10] MEDS: METOPROLOL TARTRATE 50 MG TAB PO SCH ×2 (09:02→20:04)
[2016-05-10] MEDS: DILTIAZEM HCL 90 MG TAB PEG SCH ×4 (09:02→20:04)
[2016-05-10] MEDS: levETIRAcetam 500 MG/5 ML UDC TUBE SCH ×2 (09:02→20:04)
[2016-05-10] MEDS: POTASSIUM CHLORIDE 25 MEQ EFFERVESCENT TAB TUBE SCH ×2 (09:02→20:05)
[2016-05-10] MEDS: RANITIDINE HCL SYRUP 150 MG/10 ML UDC PO SCH (09:02)
[2016-05-10] MEDS: LACTOBACILLUS ACIDOPHILUS TAB PEG SCH ×2 (09:02→20:04)
[2016-05-10] MEDS: ARTIFICIAL TEARS OPTH OINT 3.5 APPLIC/3.5 GM TUBO EACH EYE SCH ×2 (09:03→20:06)
[2016-05-10] MEDS: NYSTATIN 100,000 U/GM PWD 15 GM BTL TOPICAL SCH ×2 (09:03→20:05)
[2016-05-10] MEDS: cefTRIAXone INJ 2,000 MG in SODIUM CHLORIDE 0.9% INJ 100 ML IV SCH (12:14)
--- NOTE | 2016-05-10 12:52 | HHI.PR ---
Subjective Remarks opened eyes to call of his name eyes looking around Objective Vitals Vital Signs Date Time Temp Pulse Resp B/P Pulse Ox O2 Delivery O2 Flow Rate FiO2 05/10/16 12:36 97.6 68 20 120/74 98 05/10/16 08:35 100 T-piece 6.00 28 05/10/16 08:11 97.0 81 20 131/77 100 05/10/16 07:38 83 05/10/16 04:00 97.0 82 22 133/77 98 05/10/16 00:50 T-Piece 5.00 28 05/10/16 00:49 98 T-piece 5.00 28 05/10/16 00:49 98 T-piece 5.00 28 05/10/16 00:00 97.6 71 22 111/62 98 05/09/16 23:00 80 05/09/16 20:00 97.2 85 22 117/66 98 05/09/16 16:43 99.0 88 20 125/71 97 05/09/16 12:57 20 05/09/16 12:56 99.0 88 20 125/97 97 I/O 05/09/16 05/09/16 05/09/16 05/10/16 05/10/16 05/10/16 06:59 14:59 22:59 06:59 14:59 22:59 Output Total 600 ml 650 ml 350 ml Balance -600 ml -650 ml -350 ml Output Urine Total 600 ml 650 ml 350 ml # Bowel Movements 2 0 0 1 Result Diagram: 05/06/16 0550 Imaging Last Impressions Chest X-Ray 05/04/16 0000 Signed Impressions: Service Date/Time: Wednesday, May 04, 2016 15:05 - CONCLUSION: 1. Mild atelectasis or scarring remains the right lung base. 2. Tracheostomy tube in place with no evidence of pulmonary edema. Gerald Mukherjee MD Abdomen/Pelvis CT 04/12/16 0000 Signed Impressions: Service Date/Time: Tuesday, April 12, 2016 20:52 - CONCLUSION: 1. 6.4 cm necrotic mass or abscess in the soft tissues posteriorly just below the sacrum associated with some bony destructive change of the lower most sacrum and coccyx with inflammatory changes extending into the ischiorectal fossa and into the presacral retroperitoneum predominantly on the left side. There is associated fairly marked mural thickening of the anal verge and rectum. 2. There is gastrostomy and Lopez catheter present. Stable abdominal aortic aneurysm. Durga Dotson MD Head Magnetic Resonance Angiography 03/05/16 0000 Signed Impressions: Service Date/Time: Saturday, March 05, 2016 09:26 - CONCLUSION: Persistent high-grade subtotal occlusive stenotic lesions in the distal right vertebral artery and proximal basilar artery with significant improvement in flow and recanalization following initial presentation of thrombosis. Stable interstitial circulation without significant stenosis. 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 There is decreasing restricted diffusion and increasing loss of volume characteristic of a subacute to chronic infarct. No evidence of acute infarct, acute hemorrhage mass or edema. Ernesto Kulkarni MD Head CT 01/16/16 0000 Signed Impressions: Service Date/Time: Saturday, January 16, 2016 10:51 - CONCLUSION: No extensive low density in the brainstem colin more prominent in the right the left extending into the right middle cerebellar peduncle consistent with brainstem infarct nonhemorrhagic acute Wellington West MD Abdomen X-Ray 01/14/16 0000 Signed Impressions: Service Date/Time: Thursday, January 14, 2016 10:19 - CONCLUSION: Moderate stool; otherwise, negative. 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 No evidence of carotid stenosis. Glen Zamora MD Head/Brain Mag Res Venography 12/22/15 0000 Signed Impressions: Service Date/Time: Tuesday, December 22, 2015 09:22 - CONCLUSION: Normal MRV. Jonel Jones Jr., MD Objective Remarks eyes open, no purposeful movements pupils equal, anicteric mild facial asymmetry no gag reflex neck supple no rigidity, tracheostomy in place lungs- no rales or wheezes regular rhythm abdomen- soft, good bowel sounds, PEG site- no signs of erythema lopez in place back wound- wound packing in place extremities- generalized swelling- improving Procedures 01/02/16 PEG placement 01/02/16 tracheostomy Date of Insertion: Mar 07, 2016 A/P Problem List: (1) CVA (cerebral vascular accident) ICD Code: I63.9 Status: Acute (2) A-fib ICD Code: I48.91 Status: Chronic (3) DM (diabetes mellitus) ICD Code: E11.9 Status: Chronic Assessment and Plan 60-year-old male with: -CVA (cerebral vascular accident): 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 Significant residual cognitive deficit. -Nonverbal at this time; appears to be in a locked in state. Poor [facility]p prognosis. 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 -Continue Keppra and Coumadin- Palliative care following. Monitor Keppra level periodically. - evaluated by neurology; continue Keppra -cont Paxil as per family request. -Large sacral necrotic mass (6.[address] posterior to sacrum) with destruction of coccyx - stage IV decubitus ulcer versus hematoma vs possible destructive mass - s/p plastics eval (I discussed the patient previously with Dr. Yoder) who has now signed off. - Dr. Chawla was field operations farm manager for colorectal and recommended palliative care consultation also recommended if bleeding is a concern to consider to consult interventional radiology to see if embolization could provide hemostasis rather than a large surgery - seen by Dr. Mars- vascular surgery - - the wound and the patients overall poor prognosis. hospice would be appropriate. Palliative care is following. cultures +klebsiella. pt on abx per ID. no anticoagulation due to bleeding from the wound. cont wound care (packing daily).- On Ceftriaxone per Dr. Liu Discussed with family, including patient's cousin who is a physician in [place]. Dr. Gonzalez offered to discuss with plastic surgery getting a tissue diagnosis to rule out cancer if it would put the patient's family at ease, however pursuing aggressive surgery overlooks the patient's overall poor neurologic prognosis. The patient would not be likely to heal from this large wound given his immobility. - monitor CBC- and H stable - family at bedside- wants to pursue aggressive- they are not ready for hospice at this point - Palliative care involved - 04/23- made alternative code surgery- diverting colostomy cancelled per CRS 06/06 - d/w staff nurse- needed a consent from another family member- family undecided d/w Mom - 05/09- they don't want it -Fluid overload/edema with positive fluid balance -generalized edema- continues to improve lasix 20 mg IV daily, with albumin, k-lyte 25 meq PEG BID, monitor I/O . ff BMP ff BMP Respiratory failure: Secondary to CVA. Patient is status post tracheostomy. Pulmonary following. on Fi02 35%- d/w RT taper to 28% as tolerated - Levsin PRN secretions. needs suctioning renew duoneb q 6 Xopenex q 2 prn Anemia of acute blood loss - secondary to bleeding from the wound. S/P transfuse 2 units pRBCs ff H and H H and H stable CRS- ff- surgery cancelled - -GI/Nutrition: Previous PEG tube exchanged by GI at bedside 03/30/2016. dietary ff. -Depression: Continue Paxil. -A-fib: rate better controlled- continue Lopressor, cardizem 90 mg qid. NO coumadin due to significant bleeding from the sacral wound. -Coccyx pressure ulcer- cont wound care. -History of Non-Hodgkin lymphoma: s/p brain biopsy on December 13, by Neurosurgery, Dr. Marin, Pathology consistent with acute infarct without evidence of lymphoma -Seen by Oncology, Dr. Whyte, who has signed off -DM: Hemoglobin A1c is 7.0. Continue Levemir with sliding scale insulin- monitor and adjust the regimen as needed. - MRSA in the sputum, tracheobronchitis. Chest x-ray 04/05 was clear. completed course of zyvox. mild hypokalemia; replaced. DVT prophylaxis: no coumadin due to wound bleeding. SCDs. Problem Qualifiers (1) DM (diabetes mellitus): Qualified Code: E11.9 - Type 2 diabetes mellitus without complications Soco Pickett MD May 10, 2016 12:52
[2016-05-10] MEDS: PARoxetine HCL SUSP 20 MG/10 ML UDC PEG SCH (18:16)
[2016-05-10] MEDS: INSULIN DETEMIR 100 UNITS/ML VIAL SQ SCH (20:05)
[2016-05-11] VITALS (10 sets, daily range): BP systolic 112–145; BP diastolic 69–86; PULSE 78–95; RESP 20–22; TEMP 97.7–99.3; O2SAT 99–100
[2016-05-11] MEDS: FREE WATER TUBE SCH ×5 (04:00→21:06)
[2016-05-11] MEDS: ACETAMINOPHEN/HYDROcodone 325 MG/5 MG TAB PEG SCH ×4 (04:57→21:17)
[2016-05-11] MEDS: ACETIC ACID 0.25% SOLN 1000 ML IRR BTL IRRIGATION SCH ×3 (04:57→22:00)
[2016-05-11] MEDS: INSULIN ASPART SUPPLEMENTAL SCALE SQ SCH ×4 (04:59→21:32)
[2016-05-11] MEDS: NYSTATIN 100,000 U/GM PWD 15 GM BTL TOPICAL SCH ×2 (08:00→21:06)
[2016-05-11] MEDS: ARTIFICIAL TEARS OPTH OINT 3.5 APPLIC/3.5 GM TUBO EACH EYE SCH ×2 (08:46→21:06)
[2016-05-11] MEDS: DILTIAZEM HCL 90 MG TAB PEG SCH ×4 (08:46→21:17)
[2016-05-11] MEDS: LACTOBACILLUS ACIDOPHILUS TAB PEG SCH ×2 (08:47→21:17)
[2016-05-11] MEDS: METOPROLOL TARTRATE 50 MG TAB PO SCH ×2 (08:47→21:17)
[2016-05-11] MEDS: levETIRAcetam 500 MG/5 ML UDC TUBE SCH ×2 (08:48→21:17)
[2016-05-11] MEDS: LACTULOSE SYRUP 20 GM/30 ML CUP PEG SCH (08:48)
[2016-05-11] MEDS: RANITIDINE HCL SYRUP 150 MG/10 ML UDC PO SCH (08:48)
[2016-05-11] MEDS: POTASSIUM CHLORIDE 25 MEQ EFFERVESCENT TAB TUBE SCH ×2 (08:48→21:18)
[2016-05-11] MEDS: SENNOSIDES SYRUP 8.8 MG/5 ML CUP TUBE SCH (08:49)
--- NOTE | 2016-05-11 10:37 | HHI.PR ---
Subjective Remarks tolerating tube feedings turned to the my side to the call of his name Objective Vitals Vital Signs Date Time Temp Pulse Resp B/P Pulse Ox O2 Delivery O2 Flow Rate FiO2 05/11/16 08:00 98.2 95 22 138/80 100 05/11/16 07:49 99 T-piece 28 05/11/16 07:48 99 T-piece 28 05/11/16 05:57 20 05/11/16 04:00 T-Piece 5.00 05/11/16 04:00 99.3 90 20 140/86 99 05/11/16 00:12 T-Piece 5.00 28 05/11/16 00:12 97.7 78 20 112/69 99 05/10/16 20:35 97.3 82 20 122/71 99 05/10/16 20:35 T-Piece 5.00 28 05/10/16 20:13 100 T-piece 05/10/16 20:00 82 05/10/16 17:11 98 T-Piece 5.00 35 Humidified 05/10/16 16:29 97.7 76 20 133/67 98 05/10/16 12:36 97.6 68 20 120/74 98 I/O 05/10/16 05/10/16 05/10/16 05/11/16 05/11/16 05/11/16 07:00 15:00 23:00 07:00 15:00 23:00 Intake Total 600 ml 2035 ml Output Total 350 ml 1225 ml 450 ml Balance -350 ml -625 ml -450 ml 2035 ml Tube Feeding 600 ml 2035 ml Output Urine Total 350 ml 1225 ml 450 ml # Bowel Movements 0 1 2 3 Imaging Last Impressions Chest X-Ray 05/04/16 0000 Signed Impressions: Service Date/Time: Wednesday, May 04, 2016 15:05 - CONCLUSION: 1. Mild atelectasis or scarring remains the right lung base. 2. Tracheostomy tube in place with no evidence of pulmonary edema. Gerald Mukherjee MD Abdomen/Pelvis CT 04/12/16 0000 Signed Impressions: Service Date/Time: Tuesday, April 12, 2016 20:52 - CONCLUSION: 1. 6.4 cm necrotic mass or abscess in the soft tissues posteriorly just below the sacrum associated with some bony destructive change of the lower most sacrum and coccyx with inflammatory changes extending into the ischiorectal fossa and into the presacral retroperitoneum predominantly on the left side. There is associated fairly marked mural thickening of the anal verge and rectum. 2. There is gastrostomy and Lopez catheter present. Stable abdominal aortic aneurysm. Durga Dotson MD Head Magnetic Resonance Angiography 03/05/16 0000 Signed Impressions: Service Date/Time: Saturday, March 05, 2016 09:26 - CONCLUSION: Persistent high-grade subtotal occlusive stenotic lesions in the distal right vertebral artery and proximal basilar artery with significant improvement in flow and recanalization following initial presentation of thrombosis. Stable interstitial circulation without significant stenosis. 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 There is decreasing restricted diffusion and increasing loss of volume characteristic of a subacute to chronic infarct. No evidence of acute infarct, acute hemorrhage mass or edema. Ernesto Kulkarni MD Head CT 01/16/16 0000 Signed Impressions: Service Date/Time: Saturday, January 16, 2016 10:51 - CONCLUSION: No extensive low density in the brainstem colin more prominent in the right the left extending into the right middle cerebellar peduncle consistent with brainstem infarct nonhemorrhagic acute Wellington West MD Abdomen X-Ray 01/14/16 0000 Signed Impressions: Service Date/Time: Thursday, January 14, 2016 10:19 - CONCLUSION: Moderate stool; otherwise, negative. 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 No evidence of carotid stenosis. Glen Zamora MD Head/Brain Mag Res Venography 12/22/15 0000 Signed Impressions: Service Date/Time: Tuesday, December 22, 2015 09:22 - CONCLUSION: Normal MRV. Jonel Jones Jr., MD Objective Remarks eyes open, turned head to call of his name pupils equal, anicteric mild facial asymmetry no gag reflex neck supple no rigidity, tracheostomy in place lungs- no rales or wheezes regular rhythm abdomen- soft, good bowel sounds, PEG site- no signs of erythema lopez in place back wound- wound packing in place extremities- generalized swelling- trace Procedures 01/02/16 PEG placement 01/02/16 tracheostomy Date of Insertion: Mar 07, 2016 A/P Problem List: (1) CVA (cerebral vascular accident) ICD Code: I63.9 Status: Acute (2) A-fib ICD Code: I48.91 Status: Chronic (3) DM (diabetes mellitus) ICD Code: E11.9 Status: Chronic Assessment and Plan 60-year-old male with: -CVA (cerebral vascular accident): 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 Significant residual cognitive deficit. -Nonverbal at this time; appears to be in a locked in state. Poor retirement prognosis. 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 -Continue Keppra and Coumadin- Palliative care following. Monitor Keppra level periodically. - evaluated by neurology; continue Keppra -cont Paxil as per family request. -Large sacral necrotic mass (6.[address] posterior to sacrum) with destruction of coccyx - stage IV decubitus ulcer versus hematoma vs possible destructive mass - s/p plastics eval (I discussed the patient previously with Dr. Yoder) who has now signed off. - Dr. Chawla was transportation aid for colorectal and recommended palliative care consultation also recommended if bleeding is a concern to consider to consult interventional radiology to see if embolization could provide hemostasis rather than a large surgery - seen by Dr. Mars- vascular surgery - - the wound and the patients overall poor prognosis. hospice would be appropriate. Palliative care is following. cultures +klebsiella. pt on abx per ID. no anticoagulation due to bleeding from the wound. cont wound care (packing daily).- On Ceftriaxone per Dr. Liu Discussed with family, including patient's cousin who is a physician in [place]. Dr. Gonzalez offered to discuss with plastic surgery getting a tissue diagnosis to rule out cancer if it would put the patient's family at ease, however pursuing aggressive surgery overlooks the patient's overall poor neurologic prognosis. The patient would not be likely to heal from this large wound given his immobility. - monitor CBC- and H stable - family at bedside- wants to pursue aggressive- they are not ready for hospice at this point - Palliative care involved - 04/23- made alternative code surgery- diverting colostomy cancelled per CRS 06/06 - d/w staff nurse- needed a consent from another family member- family undecided d/w Mom - 05/09- they don't want it -Fluid overload/edema with positive fluid balance -generalized edema- continues to improve lasix 20 mg IV daily, with albumin, k-lyte 25 meq PEG BID, monitor I/O . ff BMP ff BMP Respiratory failure: Secondary to CVA. Patient is status post tracheostomy. Pulmonary following. on Fi02 - now at 28% - since 05/10- tolerating well- RT ff along with us- appreciated - Levsin PRN secretions. needs suctioning renew duoneb q 6 Xopenex q 2 prn Anemia of acute blood loss - secondary to bleeding from the wound. S/P transfuse 2 units pRBCs ff H and H H and H stable CRS- ff- surgery cancelled - -GI/Nutrition: Previous PEG tube exchanged by GI at bedside 03/30/2016. dietary ff. -Depression: Continue Paxil. -A-fib: rate better controlled- continue Lopressor, cardizem 90 mg qid. NO coumadin due to significant bleeding from the sacral wound. -Coccyx pressure ulcer- cont wound care. -History of Non-Hodgkin lymphoma: s/p brain biopsy on December 13, by Neurosurgery, Dr. Marin, Pathology consistent with acute infarct without evidence of lymphoma -Seen by Oncology, Dr. Whyte, who has signed off -DM: Hemoglobin A1c is 7.0. Continue Levemir with sliding scale insulin- monitor and adjust the regimen as needed. - MRSA in the sputum, tracheobronchitis. Chest x-ray 04/05 was clear. completed course of zyvox. mild hypokalemia; replaced. DVT prophylaxis: no coumadin due to wound bleeding. SCDs. Problem Qualifiers (1) DM (diabetes mellitus): Qualified Code: E11.9 - Type 2 diabetes mellitus without complications Soco Pickett MD May 11, 2016 10:37
[2016-05-11] MEDS: cefTRIAXone INJ 2,000 MG in SODIUM CHLORIDE 0.9% INJ 100 ML IV SCH (12:29)
[2016-05-11] MEDS: PARoxetine HCL SUSP 20 MG/10 ML UDC PEG SCH (18:20)
[2016-05-11] MEDS: INSULIN DETEMIR 100 UNITS/ML VIAL SQ SCH (21:28)
[2016-05-12] VITALS (9 sets, daily range): BP systolic 118–139; BP diastolic 67–85; PULSE 79–91; RESP 20–22; TEMP 97.1–98.6; O2SAT 94–100
[2016-05-12] MEDS: FREE WATER TUBE SCH ×6 (04:00→20:55)
[2016-05-12] MEDS: ACETAMINOPHEN/HYDROcodone 325 MG/5 MG TAB PEG SCH ×3 (06:10→18:43)
[2016-05-12] MEDS: INSULIN ASPART SUPPLEMENTAL SCALE SQ SCH ×4 (06:10→20:55)
[2016-05-12] MEDS: ACETIC ACID 0.25% SOLN 1000 ML IRR BTL IRRIGATION SCH ×3 (06:10→22:01)
[2016-05-12] MEDS: levETIRAcetam 500 MG/5 ML UDC TUBE SCH ×2 (07:43→20:54)
[2016-05-12] MEDS: POTASSIUM CHLORIDE 25 MEQ EFFERVESCENT TAB TUBE SCH ×2 (07:44→20:54)
[2016-05-12] MEDS: DILTIAZEM HCL 90 MG TAB PEG SCH ×5 (07:44→20:54)
[2016-05-12] MEDS: RANITIDINE HCL SYRUP 150 MG/10 ML UDC PO SCH (07:44)
[2016-05-12] MEDS: NYSTATIN 100,000 U/GM PWD 15 GM BTL TOPICAL SCH ×2 (07:44→20:55)
[2016-05-12] MEDS: LACTULOSE SYRUP 20 GM/30 ML CUP PEG SCH (07:44)
[2016-05-12] MEDS: LACTOBACILLUS ACIDOPHILUS TAB PEG SCH ×2 (07:44→20:54)
[2016-05-12] MEDS: METOPROLOL TARTRATE 50 MG TAB PO SCH ×2 (07:44→20:55)
[2016-05-12] MEDS: SENNOSIDES SYRUP 8.8 MG/5 ML CUP TUBE SCH (07:45)
[2016-05-12] MEDS: ARTIFICIAL TEARS OPTH OINT 3.5 APPLIC/3.5 GM TUBO EACH EYE SCH ×2 (07:45→20:55)
--- NOTE | 2016-05-12 09:41 | HHI.PR ---
Subjective Remarks eyes moved to side where his name is called Objective Vitals Vital Signs Date Time Temp Pulse Resp B/P Pulse Ox O2 Delivery O2 Flow Rate FiO2 05/12/16 08:00 98.6 91 22 139/85 100 05/12/16 06:00 97.7 88 21 123/69 99 05/12/16 00:30 98.0 80 20 136/68 99 05/11/16 21:45 97.8 85 21 145/82 100 05/11/16 20:25 99 T-piece 28 05/11/16 20:25 99 T-piece 28 05/11/16 20:00 83 05/11/16 19:00 100 T-Piece 5.00 35 05/11/16 16:00 97.8 87 22 122/73 100 05/11/16 12:31 97.7 82 22 132/74 100 I/O 05/11/16 05/11/16 05/11/16 05/12/16 05/12/16 05/12/16 07:00 15:00 23:00 07:00 15:00 23:00 Intake Total 2035 ml 0 ml 0 ml Output Total 450 ml 700 ml 800 ml 500 ml Balance -450 ml 1335 ml -800 ml -500 ml Intake Oral 0 ml 0 ml Tube Feeding 2035 ml Output Urine Total 450 ml 700 ml 800 ml 500 ml # Bowel Movements 3 3 2 0 Imaging Last Impressions Chest X-Ray 05/04/16 0000 Signed Impressions: Service Date/Time: Wednesday, May 04, 2016 15:05 - CONCLUSION: 1. Mild atelectasis or scarring remains the right lung base. 2. Tracheostomy tube in place with no evidence of pulmonary edema. Gerald Mukherjee MD Abdomen/Pelvis CT 04/12/16 0000 Signed Impressions: Service Date/Time: Tuesday, April 12, 2016 20:52 - CONCLUSION: 1. 6.4 cm necrotic mass or abscess in the soft tissues posteriorly just below the sacrum associated with some bony destructive change of the lower most sacrum and coccyx with inflammatory changes extending into the ischiorectal fossa and into the presacral retroperitoneum predominantly on the left side. There is associated fairly marked mural thickening of the anal verge and rectum. 2. There is gastrostomy and Lopze catheter present. Stable abdominal aortic aneurysm. Durga Dotson MD Head Magnetic Resonance Angiography 03/05/16 0000 Signed Impressions: Service Date/Time: Saturday, March 05, 2016 09:26 - CONCLUSION: Persistent high-grade subtotal occlusive stenotic lesions in the distal right vertebral artery and proximal basilar artery with significant improvement in flow and recanalization following initial presentation of thrombosis. Stable interstitial circulation without significant stenosis. 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 There is decreasing restricted diffusion and increasing loss of volume characteristic of a subacute to chronic infarct. No evidence of acute infarct, acute hemorrhage mass or edema. Ernesto Kulkarni MD Head CT 01/16/16 0000 Signed Impressions: Service Date/Time: Saturday, January 16, 2016 10:51 - CONCLUSION: No extensive low density in the brainstem colin more prominent in the right the left extending into the right middle cerebellar peduncle consistent with brainstem infarct nonhemorrhagic acute Wellington West MD Abdomen X-Ray 01/14/16 0000 Signed Impressions: Service Date/Time: Thursday, January 14, 2016 10:19 - CONCLUSION: Moderate stool; otherwise, negative. 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 No evidence of carotid stenosis. Glen Zamora MD Head/Brain Mag Res Venography 12/22/15 0000 Signed Impressions: Service Date/Time: Tuesday, December 22, 2015 09:22 - CONCLUSION: Normal MRV. Jonel Jones Jr., MD Objective Remarks eyes open, turned head to call of his name pupils equal, anicteric mild facial asymmetry no gag reflex neck supple no rigidity, tracheostomy in place lungs- no rales or wheezes regular rhythm abdomen- soft, good bowel sounds, PEG site- no signs of erythema lopez in place back wound- wound packing in place extremities- generalized swelling- trace Procedures 01/02/16 PEG placement 01/02/16 tracheostomy Date of Insertion: Mar 07, 2016 A/P Problem List: (1) CVA (cerebral vascular accident) ICD Code: I63.9 Status: Acute (2) A-fib ICD Code: I48.91 Status: Chronic (3) DM (diabetes mellitus) ICD Code: E11.9 Status: Chronic Assessment and Plan 60-year-old male with: -CVA (cerebral vascular accident): 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 Significant residual cognitive deficit. -Nonverbal at this time; appears to be in a locked in state. 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 -Continue Keppra and Coumadin- Palliative care following. Monitor Keppra level periodically. - evaluated by neurology; continue Keppra -cont Paxil as per family request. -Large sacral necrotic mass (6.[address] posterior to sacrum) with destruction of coccyx - stage IV decubitus ulcer versus hematoma vs possible destructive mass - s/p plastics eval (I discussed the patient previously with Dr. Yoder) who has now signed off. - Dr. Chawla was logistics operations manager for colorectal and recommended palliative care consultation also recommended if bleeding is a concern to consider to consult interventional radiology to see if embolization could provide hemostasis rather than a large surgery - seen by Dr. Mars- vascular surgery - - the wound and the patients overall poor prognosis. hospice would be appropriate. Palliative care is following. cultures +klebsiella. pt on abx per ID. no anticoagulation due to bleeding from the wound. cont wound care (packing daily).- On Ceftriaxone per Dr. Liu Discussed with family, including patient's cousin who is a physician in [place]. Dr. Gonzalez offered to discuss with plastic surgery getting a tissue diagnosis to rule out cancer if it would put the patient's family at ease, however pursuing aggressive surgery overlooks the patient's overall poor neurologic prognosis. The patient would not be likely to heal from this large wound given his immobility. - monitor CBC- and H stable - family at bedside- wants to pursue aggressive- they are not ready for hospice at this point - Palliative care involved - 04/23- made alternative code surgery- diverting colostomy cancelled per CRS 06/06 - d/w staff nurse- needed a consent from another family member- family undecided d/w Mom - 05/09- they don't want it -Fluid overload/edema with positive fluid balance -generalized edema- continues to improve lasix 20 mg IV daily, with albumin, k-lyte 25 meq PEG BID, monitor I/O . ff BMP ff BMP periodically Respiratory failure: Secondary to CVA. Patient is status post tracheostomy. Pulmonary following. on Fi02 - now at 28% - since 05/10- tolerating well- RT ff along with us- appreciated - Levsin PRN secretions. needs suctioning renew duoneb q 6 Xopenex q 2 prn Anemia of acute blood loss - secondary to bleeding from the wound. S/P transfuse 2 units pRBCs ff H and H H and H stable CRS- ff- surgery cancelled - -GI/Nutrition: Previous PEG tube exchanged by GI at bedside 03/30/2016. dietary ff. -Depression: Continue Paxil. -A-fib: rate better controlled- continue Lopressor, cardizem 90 mg qid. NO coumadin due to significant bleeding from the sacral wound. -Coccyx pressure ulcer- cont wound care. -History of Non-Hodgkin lymphoma: s/p brain biopsy on December 13, by Neurosurgery, Dr. Marin, Pathology consistent with acute infarct without evidence of lymphoma -Seen by Oncology, Dr. Whyte, who has signed off -DM: Hemoglobin A1c is 7.0. Continue Levemir with sliding scale insulin- monitor and adjust the regimen as needed. - MRSA in the sputum, tracheobronchitis. Chest x-ray 04/05 was clear. completed course of zyvox. mild hypokalemia; replaced. DVT prophylaxis: no coumadin due to wound bleeding. SCDs. Problem Qualifiers (1) DM (diabetes mellitus): Qualified Code: E11.9 - Type 2 diabetes mellitus without complications Soco Pickett MD May 12, 2016 09:41
[2016-05-12] MEDS: cefTRIAXone INJ 2,000 MG in SODIUM CHLORIDE 0.9% INJ 100 ML IV SCH (12:42)
[2016-05-12] MEDS: PARoxetine HCL SUSP 20 MG/10 ML UDC PEG SCH (18:43)
[2016-05-12] MEDS: RESP: LEVALBUTEROL HYDROCHLORIDE 0.63 MG/3 ML NEB (PRN) NEB (18:54)
[2016-05-12] MEDS: INSULIN DETEMIR 100 UNITS/ML VIAL SQ SCH (20:55)
[2016-05-13] VITALS (9 sets, daily range): BP systolic 79–148; BP diastolic 60–88; PULSE 77–144; RESP 20–28; TEMP 97.2–98.6; O2SAT 92–99
[2016-05-13] MEDS: ACETAMINOPHEN/HYDROcodone 325 MG/5 MG TAB PEG SCH ×4 (00:26→18:06)
[2016-05-13] MEDS: FREE WATER TUBE SCH ×6 (00:26→20:56)
[2016-05-13] MEDS: ACETIC ACID 0.25% SOLN 1000 ML IRR BTL IRRIGATION SCH ×3 (06:10→21:06)
[2016-05-13] MEDS: INSULIN ASPART SUPPLEMENTAL SCALE SQ SCH ×4 (07:00→20:58)
[2016-05-13] MEDS: DILTIAZEM HCL 90 MG TAB PEG SCH ×4 (08:48→20:59)
[2016-05-13] MEDS: RANITIDINE HCL SYRUP 150 MG/10 ML UDC PO SCH (08:48)
[2016-05-13] MEDS: SENNOSIDES SYRUP 8.8 MG/5 ML CUP TUBE SCH (09:00)
[2016-05-13] MEDS: LACTULOSE SYRUP 20 GM/30 ML CUP PEG SCH (09:00)
[2016-05-13] MEDS: levETIRAcetam 500 MG/5 ML UDC TUBE SCH ×2 (09:01→20:59)
[2016-05-13] MEDS: LACTOBACILLUS ACIDOPHILUS TAB PEG SCH ×2 (09:01→20:58)
[2016-05-13] MEDS: ARTIFICIAL TEARS OPTH OINT 3.5 APPLIC/3.5 GM TUBO EACH EYE SCH ×2 (09:02→21:06)
[2016-05-13] MEDS: NYSTATIN 100,000 U/GM PWD 15 GM BTL TOPICAL SCH ×2 (09:02→21:06)
[2016-05-13] MEDS: METOPROLOL TARTRATE 50 MG TAB PO SCH ×2 (09:02→21:00)
[2016-05-13] MEDS: POTASSIUM CHLORIDE 25 MEQ EFFERVESCENT TAB TUBE SCH ×2 (10:27→20:58)
[2016-05-13] MEDS: cefTRIAXone INJ 2,000 MG in SODIUM CHLORIDE 0.9% INJ 100 ML IV SCH (12:07)
--- NOTE | 2016-05-13 15:04 | HHI.PR ---
Subjective Remarks good family support tolerating tube feedings, no nausea or vomiting Objective Vitals Vital Signs Date Time Temp Pulse Resp B/P Pulse Ox O2 Delivery O2 Flow Rate FiO2 05/13/16 12:41 97.2 77 20 148/88 99 05/13/16 09:09 98.6 98 20 137/82 98 05/13/16 07:00 99 T-Piece 5.00 35 05/13/16 04:52 100 T-Piece 5.00 35 05/13/16 04:45 97.7 86 21 128/60 98 05/13/16 00:30 97.7 78 20 125/66 98 05/12/16 23:04 83 05/12/16 21:00 97.1 84 20 122/67 94 05/12/16 19:20 99 T-piece 6.00 28 05/12/16 19:20 100 T-piece 6.00 28 05/12/16 18:24 100 T-Piece 5.00 35 05/12/16 16:24 98.2 86 22 118/68 96 I/O 05/12/16 05/12/16 05/12/16 05/13/16 05/13/16 05/13/16 07:00 15:00 23:00 07:00 15:00 23:00 Intake Total 0 ml 400 ml 200 ml 0 ml Output Total 500 ml 450 ml 600 ml Balance -500 ml -50 ml 200 ml -600 ml Intake Oral 0 ml 0 ml Other 400 ml 200 ml Output Urine Total 500 ml 450 ml 600 ml # Bowel Movements 0 2 1 Objective Remarks eyes open, eyes turn to side to call of his name pupils equal, anicteric mild facial asymmetry no gag reflex neck supple no rigidity, tracheostomy in place lungs- no rales or wheezes regular rhythm abdomen- soft, good bowel sounds, PEG site- no signs of erythema lopez in place back wound- wound packing in place 05/11 exam extremities- generalized swelling- trace Procedures 01/02/16 PEG placement 01/02/16 tracheostomy Date of Insertion: Mar 07, 2016 A/P Problem List: (1) CVA (cerebral vascular accident) ICD Code: I63.9 Status: Acute (2) A-fib ICD Code: I48.91 Status: Chronic (3) DM (diabetes mellitus) ICD Code: E11.9 Status: Chronic Assessment and Plan 60-year-old male with: -CVA (cerebral vascular accident): 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 Significant residual cognitive deficit. -Nonverbal, appears to be in a locked in state. 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 -Continue Keppra and Coumadin- Palliative care following. Monitor Keppra level periodically. - evaluated by neurology; continue Keppra -cont Paxil as per family request. -Large sacral necrotic mass (6.[address] posterior to sacrum) with destruction of coccyx - stage IV decubitus ulcer versus hematoma vs possible destructive mass - s/p plastics eval (I discussed the patient previously with Dr. Yoder) who has now signed off. - Dr. Chawla was transition mgr rn for colorectal and recommended palliative care consultation also recommended if bleeding is a concern to consider to consult interventional radiology to see if embolization could provide hemostasis rather than a large surgery - seen by Dr. Mars- vascular surgery - - the wound and the patients overall poor prognosis. hospice would be appropriate. Palliative care is following. cultures +klebsiella. pt on abx per ID. no anticoagulation due to bleeding from the wound. cont wound care (packing daily).- On Ceftriaxone per Dr. Liu Discussed with family, including patient's cousin who is a physician in [place]. Dr. Gonzalez offered to discuss with plastic surgery getting a tissue diagnosis to rule out cancer if it would put the patient's family at ease, however pursuing aggressive surgery overlooks the patient's overall poor neurologic prognosis. The patient would not be likely to heal from this large wound given his immobility. - monitor CBC- and H stable - family at bedside- wants to pursue aggressive- they are not ready for hospice at this point - Palliative care involved - 04/23- made alternative code surgery- diverting colostomy cancelled per CRS 06/06 - d/w staff nurse- needed a consent from another family member- family undecided d/w Mom - 05/09- they don't want it -Fluid overload/edema with positive fluid balance -generalized edema- continues to improve lasix 20 mg IV daily, with albumin, k-lyte 25 meq PEG BID, monitor I/O . ff BMP ff BMP periodically Respiratory failure: Secondary to CVA. Patient is status post tracheostomy. Pulmonary following. on Fi02 - now at 28% - since 05/10- tolerating well- RT ff along with us- appreciated - Levsin PRN secretions. needs suctioning renew duoneb q 6 Xopenex q 2 prn Anemia of acute blood loss - secondary to bleeding from the wound. S/P transfuse 2 units pRBCs ff H and H H and H stable CRS- ff- surgery cancelled - -GI/Nutrition: Previous PEG tube exchanged by GI at bedside 03/30/2016. dietary ff. -Depression: Continue Paxil. -A-fib: rate better controlled- continue Lopressor, cardizem 90 mg qid. NO coumadin due to significant bleeding from the sacral wound. -Coccyx pressure ulcer- cont wound care. -History of Non-Hodgkin lymphoma: s/p brain biopsy on December 13, by Neurosurgery, Dr. Marin, Pathology consistent with acute infarct without evidence of lymphoma -Seen by Oncology, Dr. Whyte, who has signed off -DM: Hemoglobin A1c is 7.0. Continue Levemir with sliding scale insulin- monitor and adjust the regimen as needed. - MRSA in the sputum, tracheobronchitis. Chest x-ray 04/05 was clear. completed course of zyvox. mild hypokalemia; replaced. DVT prophylaxis: no coumadin due to wound bleeding. SCDs. Problem Qualifiers (1) DM (diabetes mellitus): Qualified Code: E11.9 - Type 2 diabetes mellitus without complications Soco Pickett MD May 13, 2016 15:04
[2016-05-13] MEDS: PARoxetine HCL SUSP 20 MG/10 ML UDC PEG SCH (19:21)
[2016-05-13] MEDS: INSULIN DETEMIR 100 UNITS/ML VIAL SQ SCH (20:57)
[2016-05-14] VITALS (9 sets, daily range): BP systolic 105–151; BP diastolic 66–86; PULSE 20–85; RESP 18–24; TEMP 97.1–98.3; O2SAT 97–100
[2016-05-14] MEDS: ACETAMINOPHEN/HYDROcodone 325 MG/5 MG TAB PEG SCH ×4 (00:44→17:22)
[2016-05-14] MEDS: FREE WATER TUBE SCH ×6 (00:45→21:06)
[2016-05-14] MEDS: ACETIC ACID 0.25% SOLN 1000 ML IRR BTL IRRIGATION SCH ×3 (05:23→21:06)
[2016-05-14] MEDS: INSULIN ASPART SUPPLEMENTAL SCALE SQ SCH ×4 (05:25→21:05)
[2016-05-14] MEDS: SENNOSIDES SYRUP 8.8 MG/5 ML CUP TUBE SCH (08:41)
[2016-05-14] MEDS: LACTULOSE SYRUP 20 GM/30 ML CUP PEG SCH (08:41)
[2016-05-14] MEDS: levETIRAcetam 500 MG/5 ML UDC TUBE SCH ×2 (08:45→21:06)
[2016-05-14] MEDS: LACTOBACILLUS ACIDOPHILUS TAB PEG SCH ×2 (08:45→21:04)
[2016-05-14] MEDS: METOPROLOL TARTRATE 50 MG TAB PO SCH ×2 (08:46→21:00)
[2016-05-14] MEDS: DILTIAZEM HCL 90 MG TAB PEG SCH ×4 (08:46→21:06)
[2016-05-14] MEDS: POTASSIUM CHLORIDE 25 MEQ EFFERVESCENT TAB TUBE SCH ×2 (08:46→21:05)
[2016-05-14] MEDS: ARTIFICIAL TEARS OPTH OINT 3.5 APPLIC/3.5 GM TUBO EACH EYE SCH ×2 (08:46→21:09)
[2016-05-14] MEDS: NYSTATIN 100,000 U/GM PWD 15 GM BTL TOPICAL SCH ×2 (08:47→21:11)
--- NOTE | 2016-05-14 08:58 | HHI.PR ---
Subjective Remarks seen with Mom at bedside tolerated tube feedings eyes moved to side where his name is called Objective Vitals Vital Signs Date Time Temp Pulse Resp B/P Pulse Ox O2 Delivery O2 Flow Rate FiO2 05/14/16 08:29 97.4 85 20 116/68 98 05/14/16 07:00 80 05/14/16 07:00 99 T-Piece 5.00 35 05/14/16 06:26 20 05/14/16 04:00 97.6 81 24 144/86 97 05/14/16 00:00 98.3 82 24 151/72 98 05/13/16 21:00 97 T-piece 6.00 28 05/13/16 20:00 97.6 81 24 144/86 97 05/13/16 18:05 98.2 88 20 79/ 96 05/13/16 12:41 97.2 77 20 148/88 99 05/13/16 09:09 98.6 98 20 137/82 98 I/O 05/13/16 05/13/16 05/13/16 05/14/16 05/14/16 05/14/16 07:00 15:00 23:00 07:00 15:00 23:00 Intake Total 0 ml Output Total 600 ml 450 ml 200 ml 500 ml Balance -600 ml -450 ml -200 ml -500 ml Intake Oral 0 ml Output Urine Total 600 ml 200 ml 500 ml Stool Total 450 ml # Bowel Movements 1 2 0 2 Objective Remarks eyes open, eyes turned to side to call of his name pupils equal, anicteric mild facial asymmetry no gag reflex neck supple no rigidity, tracheostomy in place lungs- no rales or wheezes regular rhythm abdomen- soft, good bowel sounds, PEG site- no signs of erythema lopez in place, no scrotal swelling back wound- wound packing in place 05/11 exam, staff to call me when dressing change today extremities- generalized swelling- trace Procedures 01/02/16 PEG placement 01/02/16 tracheostomy Date of Insertion: Mar 07, 2016 A/P Problem List: (1) CVA (cerebral vascular accident) ICD Code: I63.9 Status: Acute (2) A-fib ICD Code: I48.91 Status: Chronic (3) DM (diabetes mellitus) ICD Code: E11.9 Status: Chronic Assessment and Plan 60-year-old male with: -CVA (cerebral vascular accident): 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 Significant residual cognitive deficit. -Nonverbal, appears to be in a locked in state. 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 -Continue Keppra . Palliative care following. Monitor Keppra level periodically. - evaluated by neurology; continue Keppra -cont Paxil as per family request. -Large sacral necrotic mass (6.[address] posterior to sacrum) with destruction of coccyx - stage IV decubitus ulcer versus hematoma vs possible destructive mass - s/p plastics eval (I discussed the patient previously with Dr. Yoder) who has now signed off. - Dr. Chawla was inventory control clerk for colorectal and recommended palliative care consultation also recommended if bleeding is a concern to consider to consult interventional radiology to see if embolization could provide hemostasis rather than a large surgery - seen by Dr. Mars- vascular surgery - - the wound and the patients overall poor prognosis. hospice would be appropriate. Palliative care is following. cultures +klebsiella. pt on abx per ID. no anticoagulation due to bleeding from the wound. cont wound care (packing daily).- On Ceftriaxone per Dr. Liu Discussed with family, including patient's cousin who is a physician in [place]. Dr. Gonzalez offered to discuss with plastic surgery getting a tissue diagnosis to rule out cancer if it would put the patient's family at ease, however pursuing aggressive surgery overlooks the patient's overall poor neurologic prognosis. The patient would not be likely to heal from this large wound given his immobility. - monitor CBC- and H stable - family at bedside- wants to pursue aggressive- they are not ready for hospice at this point - Palliative care involved - 04/23- made alternative code surgery- diverting colostomy cancelled per CRS 06/06 - d/w staff nurse- needed a consent from another family member- family undecided d/w Mom - 05/09- they don't want it -Fluid overload/edema with positive fluid balance -generalized edema- continues to improve Lasix prn Respiratory failure: Secondary to CVA. Patient is status post tracheostomy. Pulmonary following. on Fi02 - now at 28% - since 05/10- tolerating well- RT ff along with us- appreciated - Levsin PRN secretions. needs suctioning renew duoneb q 6 Xopenex q 2 prn Anemia of acute blood loss - secondary to bleeding from the wound. S/P transfuse 2 units pRBCs ff H and H H and H stable CRS- ff- surgery cancelled - -GI/Nutrition: Previous PEG tube exchanged by GI at bedside 03/30/2016. dietary ff. -Depression: Continue Paxil. -A-fib: rate better controlled- continue Lopressor, cardizem 90 mg qid. NO coumadin due to significant bleeding from the sacral wound. -Coccyx pressure ulcer- cont wound care. -History of Non-Hodgkin lymphoma: s/p brain biopsy on December 13, by Neurosurgery, Dr. Marin, Pathology consistent with acute infarct without evidence of lymphoma -Seen by Oncology, Dr. Whyte, who has signed off -DM: Hemoglobin A1c is 7.0. Continue Levemir with sliding scale insulin- monitor and adjust the regimen as needed. - MRSA in the sputum, tracheobronchitis. Chest x-ray 04/05 was clear. completed course of zyvox. mild hypokalemia; replaced. DVT prophylaxis: no coumadin due to wound bleeding. SCDs. Problem Qualifiers (1) DM (diabetes mellitus): Qualified Code: E11.9 - Type 2 diabetes mellitus without complications Soco Pickett MD May 14, 2016 08:58 Soco Pickett MD May 14, 2016 08:58
[2016-05-14] MEDS: RANITIDINE HCL SYRUP 150 MG/10 ML UDC PO SCH (09:00)
[2016-05-14] MEDS: cefTRIAXone INJ 2,000 MG in SODIUM CHLORIDE 0.9% INJ 100 ML IV SCH (12:16)
[2016-05-14] MEDS: PARoxetine HCL SUSP 20 MG/10 ML UDC PEG SCH (18:16)
[2016-05-14] MEDS: INSULIN DETEMIR 100 UNITS/ML VIAL SQ SCH (21:05)
[2016-05-15] VITALS (8 sets, daily range): BP systolic 106–142; BP diastolic 64–86; PULSE 75–103; RESP 18–20; TEMP 96.6–98.4; O2SAT 97–99
[2016-05-15] MEDS: ACETAMINOPHEN/HYDROcodone 325 MG/5 MG TAB PEG SCH ×5 (01:14→23:03)
[2016-05-15] MEDS: FREE WATER TUBE SCH ×6 (01:15→21:55)
[2016-05-15] MEDS: INSULIN ASPART SUPPLEMENTAL SCALE SQ SCH ×4 (05:33→22:44)
[2016-05-15] MEDS: ACETIC ACID 0.25% SOLN 1000 ML IRR BTL IRRIGATION SCH ×3 (05:39→22:00)
[2016-05-15] MEDS: LACTOBACILLUS ACIDOPHILUS TAB PEG SCH ×2 (07:57→21:00)
[2016-05-15] MEDS: RANITIDINE HCL SYRUP 150 MG/10 ML UDC PO SCH (07:57)
[2016-05-15] MEDS: DILTIAZEM HCL 90 MG TAB PEG SCH ×4 (07:57→22:38)
[2016-05-15] MEDS: METOPROLOL TARTRATE 50 MG TAB PO SCH ×2 (07:57→22:37)
[2016-05-15] MEDS: POTASSIUM CHLORIDE 25 MEQ EFFERVESCENT TAB TUBE SCH ×2 (07:57→22:38)
[2016-05-15] MEDS: NYSTATIN 100,000 U/GM PWD 15 GM BTL TOPICAL SCH ×2 (07:57→22:44)
[2016-05-15] MEDS: levETIRAcetam 500 MG/5 ML UDC TUBE SCH ×2 (07:57→22:38)
[2016-05-15] MEDS: ARTIFICIAL TEARS OPTH OINT 3.5 APPLIC/3.5 GM TUBO EACH EYE SCH ×2 (07:58→22:44)
[2016-05-15] MEDS: LACTULOSE SYRUP 20 GM/30 ML CUP PEG SCH (07:58)
[2016-05-15] MEDS: SENNOSIDES SYRUP 8.8 MG/5 ML CUP TUBE SCH (07:58)
--- NOTE | 2016-05-15 12:24 | HHI.PR ---
Subjective Remarks eyes move to side of voice Objective Vitals Vital Signs Date Time Temp Pulse Resp B/P Pulse Ox O2 Delivery O2 Flow Rate FiO2 05/15/16 12:01 98 T-piece 28 05/15/16 08:29 99 T-Piece 5.00 35 05/15/16 08:00 97.7 103 20 139/74 99 05/15/16 06:40 18 05/15/16 05:05 97.7 103 19 123/86 98 05/15/16 01:13 98.4 100 20 142/83 97 05/14/16 21:47 97.1 75 18 105/66 100 05/14/16 18:12 98 T-piece 6.00 28 05/14/16 16:23 97.3 71 20 115/72 98 05/14/16 15:18 99 T-piece 28 I/O 05/14/16 05/14/16 05/14/16 05/15/16 05/15/16 05/15/16 07:00 15:00 23:00 07:00 15:00 23:00 Output Total 500 ml 500 ml 1000 ml Balance -500 ml -500 ml -1000 ml Output Urine Total 500 ml 500 ml 1000 ml # Bowel Movements 2 3 Objective Remarks eyes open, eyes turned to side to call of his name pupils equal, anicteric mild facial asymmetry no gag reflex neck supple no rigidity, tracheostomy in place lungs- no rales or wheezes regular rhythm abdomen- soft, good bowel sounds, PEG site- no signs of erythema lopez in place, no scrotal swelling back wound- wound packing in place- edges clean- examined 05/14 extremities- generalized swelling- trace Procedures 01/02/16 PEG placement 01/02/16 tracheostomy Date of Insertion: Mar 07, 2016 A/P Problem List: (1) CVA (cerebral vascular accident) ICD Code: I63.9 Status: Acute (2) A-fib ICD Code: I48.91 Status: Chronic (3) DM (diabetes mellitus) ICD Code: E11.9 Status: Chronic Assessment and Plan 60-year-old male with: -CVA (cerebral vascular accident): 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 Significant residual cognitive deficit. -Nonverbal, appears to be in a locked in state. 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 -Continue Keppra Palliative care following. Monitor Keppra level periodically. - evaluated by neurology; continue Keppra -cont Paxil as per family request. -Large sacral necrotic mass (6.[address] posterior to sacrum) with destruction of coccyx - stage IV decubitus ulcer versus hematoma vs possible destructive mass - s/p plastics eval (I discussed the patient previously with Dr. Yoder) who has now signed off. - Dr. Chawla was absorption and adsorption engineer for colorectal and recommended palliative care consultation also recommended if bleeding is a concern to consider to consult interventional radiology to see if embolization could provide hemostasis rather than a large surgery - seen by Dr. Mars- vascular surgery - - the wound and the patients overall poor prognosis. hospice would be appropriate. Palliative care is following. cultures +klebsiella. pt on abx per ID. no anticoagulation due to bleeding from the wound. cont wound care (packing daily).- On Ceftriaxone per Dr. Liu Discussed with family, including patient's cousin who is a physician in [place]. Dr. Gonzalez offered to discuss with plastic surgery getting a tissue diagnosis to rule out cancer if it would put the patient's family at ease, however pursuing aggressive surgery overlooks the patient's overall poor neurologic prognosis. The patient would not be likely to heal from this large wound given his immobility. - monitor CBC- and H stable - family at bedside- wants to pursue aggressive- they are not ready for hospice at this point - Palliative care involved - 04/23- made alternative code surgery- diverting colostomy cancelled per CRS 06/06 - d/w staff nurse- needed a consent from another family member- family undecided d/w Mom - 05/09- they don't want it -Fluid overload/edema with positive fluid balance -generalized edema- continues to improve lasix 20 mg IV daily, with albumin, k-lyte 25 meq PEG BID, monitor I/O . ff BMP ff BMP periodically Respiratory failure: Secondary to CVA. Patient is status post tracheostomy. Pulmonary following. on Fi02 - now at 28% - since 05/10- tolerating well- RT ff along with us- appreciated - Levsin PRN secretions. needs suctioning renew duoneb q 6 Xopenex q 2 prn Anemia of acute blood loss - secondary to bleeding from the wound. S/P transfuse 2 units pRBCs ff H and H H and H stable CRS- ff- surgery cancelled - -GI/Nutrition: Previous PEG tube exchanged by GI at bedside 03/30/2016. dietary ff. -Depression: Continue Paxil. -A-fib: rate better controlled- continue Lopressor, cardizem 90 mg qid. NO coumadin due to significant bleeding from the sacral wound. -Coccyx pressure ulcer- cont wound care. -History of Non-Hodgkin lymphoma: s/p brain biopsy on December 13, by Neurosurgery, Dr. Marin, Pathology consistent with acute infarct without evidence of lymphoma -Seen by Oncology, Dr. Whyte, who has signed off -DM: Hemoglobin A1c is 7.0. Continue Levemir with sliding scale insulin- monitor and adjust the regimen as needed. - MRSA in the sputum, tracheobronchitis. Chest x-ray 04/05 was clear. completed course of zyvox. mild hypokalemia; replaced. DVT prophylaxis: no coumadin due to wound bleeding. SCDs. Problem Qualifiers (1) DM (diabetes mellitus): Qualified Code: E11.9 - Type 2 diabetes mellitus without complications Soco Pickett MD May 15, 2016 12:23
[2016-05-15] MEDS: cefTRIAXone INJ 2,000 MG in SODIUM CHLORIDE 0.9% INJ 100 ML IV SCH (12:44)
[2016-05-15] MEDS: PARoxetine HCL SUSP 20 MG/10 ML UDC PEG SCH (19:24)
[2016-05-15] MEDS: INSULIN DETEMIR 100 UNITS/ML VIAL SQ SCH (22:38)
[2016-05-16] VITALS (10 sets, daily range): BP systolic 109–134; BP diastolic 65–80; PULSE 69–88; RESP 18–20; TEMP 96.7–98.8; O2SAT 95–100
[2016-05-16] MEDS: FREE WATER TUBE SCH ×6 (04:00→20:00)
[2016-05-16] MEDS: ACETAMINOPHEN/HYDROcodone 325 MG/5 MG TAB PEG SCH ×3 (05:50→18:00)
[2016-05-16] MEDS: ACETIC ACID 0.25% SOLN 1000 ML IRR BTL IRRIGATION SCH ×2 (05:51→14:00)
[2016-05-16] MEDS: INSULIN ASPART SUPPLEMENTAL SCALE SQ SCH ×4 (06:01→20:16)
[2016-05-16] MEDS: levETIRAcetam 500 MG/5 ML UDC TUBE SCH ×2 (08:12→20:17)
[2016-05-16] MEDS: DILTIAZEM HCL 90 MG TAB PEG SCH ×4 (08:12→20:17)
[2016-05-16] MEDS: RANITIDINE HCL SYRUP 150 MG/10 ML UDC PO SCH (08:13)
[2016-05-16] MEDS: METOPROLOL TARTRATE 50 MG TAB PO SCH ×2 (08:13→20:15)
[2016-05-16] MEDS: ARTIFICIAL TEARS OPTH OINT 3.5 APPLIC/3.5 GM TUBO EACH EYE SCH ×2 (08:13→20:20)
[2016-05-16] MEDS: LACTULOSE SYRUP 20 GM/30 ML CUP PEG SCH (08:13)
[2016-05-16] MEDS: LACTOBACILLUS ACIDOPHILUS TAB PEG SCH ×2 (08:13→20:24)
[2016-05-16] MEDS: NYSTATIN 100,000 U/GM PWD 15 GM BTL TOPICAL SCH ×2 (08:13→20:20)
[2016-05-16] MEDS: SENNOSIDES SYRUP 8.8 MG/5 ML CUP TUBE SCH (08:13)
[2016-05-16] MEDS: POTASSIUM CHLORIDE 25 MEQ EFFERVESCENT TAB TUBE SCH ×2 (08:13→20:15)
--- NOTE | 2016-05-16 10:28 | HHI.PR ---
Subjective Remarks opened eyes to call of his name tolerating tube feedings Objective Vitals Vital Signs Date Time Temp Pulse Resp B/P Pulse Ox O2 Delivery O2 Flow Rate FiO2 05/16/16 08:47 99 T-Piece 5.00 35 05/16/16 08:00 96.7 84 20 134/80 97 05/16/16 07:44 96 T-piece 6.00 28 05/16/16 07:44 96 T-piece 6.00 28 05/16/16 04:57 98.8 82 20 126/74 100 05/16/16 00:11 98.7 73 19 109/65 95 05/15/16 20:49 97.7 76 18 106/64 98 05/15/16 16:00 96.6 83 20 128/67 99 05/15/16 15:42 99 05/15/16 12:01 98 T-piece 28 05/15/16 12:00 97.1 75 20 113/65 98 I/O 05/15/16 05/15/16 05/15/16 05/16/16 05/16/16 05/16/16 07:00 15:00 23:00 07:00 15:00 23:00 Output Total 1000 ml 791 ml 950 ml Balance -1000 ml -791 ml -950 ml Output Urine Total 1000 ml 790 ml 950 ml Stool Total 1 ml # Bowel Movements 3 2 Objective Remarks eyes turned to side to call of his name pupils equal, anicteric mild facial asymmetry no gag reflex neck supple no rigidity, tracheostomy in place lungs- no rales or wheezes regular rhythm abdomen- soft, good bowel sounds, PEG site- no signs of erythema lopez in place, no scrotal swelling, no inguinal rash back wound- wound packing in place- edges clean- examined 05/14 extremities- generalized swelling- trace Procedures 01/02/16 PEG placement 01/02/16 tracheostomy Urinary Catheter: Yes Assessment to: Continue Lopez insert reason: Prolonged Immobilization Date of Insertion: Mar 07, 2016 A/P Problem List: (1) CVA (cerebral vascular accident) ICD Code: I63.9 Status: Acute (2) A-fib ICD Code: I48.91 Status: Chronic (3) DM (diabetes mellitus) ICD Code: E11.9 Status: Chronic Assessment and Plan 60-year-old male with: -CVA (cerebral vascular accident): 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 Significant residual cognitive deficit. -Nonverbal, appears to be in a locked in state. 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 -Continue Keppra . Palliative care following. Monitor Keppra level periodically. - evaluated by neurology; continue Keppra -cont Paxil as per family request. -Large sacral necrotic mass (6.[address] posterior to sacrum) with destruction of coccyx - stage IV decubitus ulcer versus hematoma vs possible destructive mass - s/p plastics eval (I discussed the patient previously with Dr. Yoder) who has now signed off. - Dr. Chawla was salesperson driver for colorectal and recommended palliative care consultation also recommended if bleeding is a concern to consider to consult interventional radiology to see if embolization could provide hemostasis rather than a large surgery - seen by Dr. Mars- vascular surgery - - the wound and the patients overall poor prognosis. hospice would be appropriate. Palliative care is following. cultures +klebsiella. pt on abx per ID. no anticoagulation due to bleeding from the wound. cont wound care (packing daily).- On Ceftriaxone per Dr. Liu Discussed with family, including patient's cousin who is a physician in [place]. Dr. Gonzalez offered to discuss with plastic surgery getting a tissue diagnosis to rule out cancer if it would put the patient's family at ease, however pursuing aggressive surgery overlooks the patient's overall poor neurologic prognosis. The patient would not be likely to heal from this large wound given his immobility. - monitor CBC- and H stable - family at bedside- wants to pursue aggressive- they are not ready for hospice at this point - Palliative care involved - 04/23- made alternative code surgery- diverting colostomy cancelled per CRS 06/06 - d/w staff nurse- needed a consent from another family member- family undecided d/w Mom - 05/09- they don't want it -Fluid overload/edema with positive fluid balance -generalized edema- low albumin state voiding well monitor Respiratory failure: Secondary to CVA. Patient is status post tracheostomy. Pulmonary following. on Fi02 - now at 28% - since 05/10- tolerating well- RT ff along with us- appreciated - Levsin PRN secretions. needs suctioning renew duoneb q 6 Xopenex q 2 prn Anemia of acute blood loss - secondary to bleeding from the wound. S/P transfuse 2 units pRBCs ff H and H H and H stable CRS- ff- surgery cancelled - -GI/Nutrition: Previous PEG tube exchanged by GI at bedside 03/30/2016. dietary ff. -Depression: Continue Paxil. -A-fib: rate better controlled- continue Lopressor, cardizem 90 mg qid. NO coumadin due to significant bleeding from the sacral wound. -Coccyx pressure ulcer- cont wound care. -History of Non-Hodgkin lymphoma: s/p brain biopsy on December 13, by Neurosurgery, Dr. Marin, Pathology consistent with acute infarct without evidence of lymphoma -Seen by Oncology, Dr. Whyte, who has signed off -DM: Hemoglobin A1c is 7.0. Continue Levemir with sliding scale insulin- monitor and adjust the regimen as needed. - MRSA in the sputum, tracheobronchitis. Chest x-ray 04/05 was clear. completed course of zyvox. mild hypokalemia; replaced. DVT prophylaxis: no coumadin due to wound bleeding. SCDs. d/w CM- mother wants more rehab- but patient with no rehab potential family refused diverting colostomy to hep with sacral decubitus healing or at least prevent it from worsening CM requested to look into home health care nursing/wound care or nursing facility Problem Qualifiers (1) DM (diabetes mellitus): Qualified Code: E11.9 - Type 2 diabetes mellitus without complications Soco Pickett MD May 16, 2016 10:28 Soco Pickett MD May 16, 2016 10:28 Soco Pickett MD May 16, 2016 10:28
[2016-05-16] MEDS: cefTRIAXone INJ 2,000 MG in SODIUM CHLORIDE 0.9% INJ 100 ML IV SCH (12:00)
[2016-05-16] MEDS: RESP: LEVALBUTEROL HYDROCHLORIDE 0.63 MG/3 ML NEB (PRN) NEB ×2 (13:10→21:46)
--- NOTE | 2016-05-16 17:57 | RADRPT ---
EXAM DATE/TIME: 05/16/2016 17:35 [facility] COMPARISON: No previous studies available for comparison. INDICATIONS : Short of Breath. MEDICAL HISTORY : Hypertension. Diabetes mellitus type II. Lymphoma. SURGICAL HISTORY : None. ENCOUNTER: Initial ACUITY: 1 day PAIN SCORE: Non-responsive. LOCATION: Bilateral chest FINDINGS: Tracheostomy in satisfactory position. Minimal basilar density most characteristic of atelectasis. No effusion. Remote left rib fractures. Heart size normal. No pneumothorax. CONCLUSION: 1. Tracheostomy in satisfactory position. Mild basilar atelectasis. Durga Dotson MD on May 16, 2016 at 17:55 Board Certified Radiologist. This report was verified electronically.
[2016-05-16] MEDS: PARoxetine HCL SUSP 20 MG/10 ML UDC PEG SCH (18:26)
[2016-05-16] MEDS: INSULIN DETEMIR 100 UNITS/ML VIAL SQ SCH (20:17)
[2016-05-17] VITALS (11 sets, daily range): BP systolic 122–168; BP diastolic 69–87; PULSE 74–89; RESP 16–20; TEMP 95.6–98; O2SAT 94–100
[2016-05-17] MEDS: ACETAMINOPHEN/HYDROcodone 325 MG/5 MG TAB PEG SCH ×4 (00:12→17:09)
[2016-05-17] MEDS: ACETIC ACID 0.25% SOLN 1000 ML IRR BTL IRRIGATION SCH ×4 (00:13→21:52)
[2016-05-17] MEDS: FREE WATER TUBE SCH ×6 (04:00→20:00)
[2016-05-17] MEDS: INSULIN ASPART SUPPLEMENTAL SCALE SQ SCH ×4 (06:28→21:47)
[2016-05-17] MEDS: LACTULOSE SYRUP 20 GM/30 ML CUP PEG SCH (07:54)
[2016-05-17] MEDS: SENNOSIDES SYRUP 8.8 MG/5 ML CUP TUBE SCH (07:54)
[2016-05-17] MEDS: LACTOBACILLUS ACIDOPHILUS TAB PEG SCH ×2 (08:42→21:00)
[2016-05-17] MEDS: METOPROLOL TARTRATE 50 MG TAB PO SCH ×2 (08:42→21:00)
[2016-05-17] MEDS: DILTIAZEM HCL 90 MG TAB PEG SCH ×4 (08:42→21:00)
[2016-05-17] MEDS: POTASSIUM CHLORIDE 25 MEQ EFFERVESCENT TAB TUBE SCH ×2 (08:43→21:00)
[2016-05-17] MEDS: NYSTATIN 100,000 U/GM PWD 15 GM BTL TOPICAL SCH ×2 (08:43→21:49)
[2016-05-17] MEDS: levETIRAcetam 500 MG/5 ML UDC TUBE SCH ×2 (08:43→21:00)
[2016-05-17] MEDS: ARTIFICIAL TEARS OPTH OINT 3.5 APPLIC/3.5 GM TUBO EACH EYE SCH ×2 (08:43→21:50)
[2016-05-17] MEDS: RANITIDINE HCL SYRUP 150 MG/10 ML UDC PO SCH (08:43)
[2016-05-17] MEDS: cefTRIAXone INJ 2,000 MG in SODIUM CHLORIDE 0.9% INJ 100 ML IV SCH (12:19)
--- NOTE | 2016-05-17 13:56 | HHI.PR ---
Subjective Remarks Mom at bedside status same- tolerating tube feeedings blinked eyes and turn to call of his name there were 2 other female family members came- Mrs Mark brother's 2 daughters per pt's Mom when addressed to they turned around and left Mom does not want him to go anywhere but here Objective Vitals Vital Signs Date Time Temp Pulse Resp B/P Pulse Ox O2 Delivery O2 Flow Rate FiO2 05/17/16 12:00 95.6 80 20 149/75 97 05/17/16 10:22 99 T-piece 28 05/17/16 10:21 97 T-piece 28 05/17/16 09:47 89 05/17/16 09:17 98 Humidified 6.00 28 05/17/16 08:00 98.0 74 16 168/86 100 05/17/16 07:37 99 T-Piece 7.00 35 05/17/16 04:00 97.6 84 20 132/77 94 05/17/16 00:00 97.7 80 20 122/69 100 05/16/16 22:03 98 T-piece 6.00 28 05/16/16 21:46 100 T-piece 6.00 40 05/16/16 21:46 100 T-piece 6.00 40 05/16/16 20:00 98.6 81 20 118/65 97 05/16/16 20:00 83 05/16/16 19:23 99 T-Piece 5.00 35 05/16/16 18:25 88 05/16/16 16:00 98.3 69 18 125/72 100 I/O 05/16/16 05/16/16 05/16/16 05/17/16 05/17/16 05/17/16 07:00 15:00 23:00 07:00 15:00 23:00 Output Total 950 ml 1100 ml 600 ml 300 ml Balance -950 ml -1100 ml -600 ml -300 ml Output Urine Total 950 ml 1100 ml 600 ml 300 ml # Bowel Movements 2 4 Imaging Last 72 hours Impressions Chest X-Ray 05/16/16 0000 Signed Impressions: Service Date/Time: April 17:35 - CONCLUSION: 1. Tracheostomy in satisfactory position. Mild basilar atelectasis. Durga Dotson MD Objective Remarks eyes turned to side to call of his name pupils equal, anicteric mild facial asymmetry no gag reflex neck supple no rigidity, tracheostomy in place lungs- no rales or wheezes regular rhythm abdomen- soft, good bowel sounds, PEG site- no signs of erythema lopez in place, no scrotal swelling, no inguinal rash back wound- wound packing in place- edges clean- examined 05/14 extremities- generalized swelling- trace Procedures 01/02/16 PEG placement 01/02/16 tracheostomy Date of Insertion: Mar 07, 2016 A/P Problem List: (1) CVA (cerebral vascular accident) ICD Code: I63.9 Status: Acute (2) A-fib ICD Code: I48.91 Status: Chronic (3) DM (diabetes mellitus) ICD Code: E11.9 Status: Chronic Assessment and Plan 60-year-old male with: -CVA (cerebral vascular accident): 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 Significant residual cognitive deficit. -Nonverbal, appears to be in a locked in state. Patient's mother/family does not appear to accept his poor prognosis and continues to hope for recovery "He is my son". -Continue Keppra . Palliative care following. Monitor Keppra level periodically. -cont Paxil as per family request. -Large sacral necrotic mass (6.[address] posterior to sacrum) with destruction of coccyx - stage IV decubitus ulcer versus hematoma vs possible destructive mass - s/p plastics eval (I discussed the patient previously with Dr. Yoder) who has now signed off. - Dr. Chawla was juvenile detention officer for colorectal and recommended palliative care consultation also recommended if bleeding is a concern to consider to consult interventional radiology to see if embolization could provide hemostasis rather than a large surgery - seen by Dr. Mars- vascular surgery - - the wound and the patients overall poor prognosis. hospice would be appropriate. Palliative care is following. cultures +klebsiella. pt on abx per ID. no anticoagulation due to bleeding from the wound. cont wound care (packing daily).- On Ceftriaxone per Dr. Liu Discussed with family, including patient's cousin who is a physician in [place]. Dr. Gonzalez offered to discuss with plastic surgery getting a tissue diagnosis to rule out cancer if it would put the patient's family at ease, however pursuing aggressive surgery overlooks the patient's overall poor neurologic prognosis. The patient would not be likely to heal from this large wound given his immobility. - monitor CBC- and H stable - family at bedside- wants to pursue aggressive- they are not ready for hospice at this point - Palliative care involved - 04/23- made alternative code surgery- diverting colostomy cancelled per CRS 06/06 - d/w staff nurse- needed a consent from another family member- family undecided d/w Mom - 05/09- they don't want it -Fluid overload/edema with positive fluid balance -generalized edema- continues to improve lasix 20 mg IV daily, with albumin, k-lyte 25 meq PEG BID, monitor I/O . ff BMP ff BMP periodically -A-fib: rate better controlled- continue Lopressor, cardizem 90 mg qid. NO coumadin due to significant bleeding from the sacral wound. Respiratory failure: Secondary to CVA. Patient is status post tracheostomy. Pulmonary following. on Fi02 - now at 28% - since 05/10- tolerating well- RT ff along with us- appreciated - Levsin PRN secretions. needs suctioning renew duoneb q 6 Xopenex q 2 prn Anemia of acute blood loss - secondary to bleeding from the wound. S/P transfuse 2 units pRBCs ff H and H H and H stable CRS- ff- surgery cancelled - -GI/Nutrition: Previous PEG tube exchanged by GI at bedside 03/30/2016. dietary ff. -Depression: Continue Paxil. -Coccyx pressure ulcer- cont wound care. -History of Non-Hodgkin lymphoma: s/p brain biopsy on December 13, by Neurosurgery, Dr. Marin, Pathology consistent with acute infarct without evidence of lymphoma -Seen by Oncology, Dr. Whyte, who has signed off -DM: Hemoglobin A1c is 7.0. Continue Levemir with sliding scale insulin- monitor and adjust the regimen as needed. - MRSA in the sputum, tracheobronchitis. Chest x-ray 04/05 was clear. completed course of zyvox. mild hypokalemia; replaced. DVT prophylaxis: no coumadin due to wound bleeding. SCDs. d/w CM- mother wants more rehab- - no rehab potential family refused diverting colostomy to hep with sacral decubitus healing or at least prevent it from worsening CM requested to look into home health care nursing/wound care or nursing facility Problem Qualifiers (1) DM (diabetes mellitus): Qualified Code: E11.9 - Type 2 diabetes mellitus without complications Soco Pickett MD May 17, 2016 13:56
[2016-05-17] MEDS: PARoxetine HCL SUSP 20 MG/10 ML UDC PEG SCH (18:30)
[2016-05-17] MEDS: INSULIN DETEMIR 100 UNITS/ML VIAL SQ SCH (21:47)
[2016-05-18] VITALS (8 sets, daily range): BP systolic 116–128; BP diastolic 68–76; PULSE 70–87; RESP 18–24; TEMP 96.7–98; O2SAT 92–100
[2016-05-18] MEDS: FREE WATER TUBE SCH ×6 (00:30→20:00)
[2016-05-18] MEDS: ACETAMINOPHEN/HYDROcodone 325 MG/5 MG TAB PEG SCH ×5 (00:52→17:41)
[2016-05-18] MEDS: INSULIN ASPART SUPPLEMENTAL SCALE SQ SCH ×4 (06:43→21:49)
[2016-05-18] MEDS: LACTOBACILLUS ACIDOPHILUS TAB PEG SCH ×2 (08:59→20:39)
[2016-05-18] MEDS: levETIRAcetam 500 MG/5 ML UDC TUBE SCH ×2 (08:59→20:39)
[2016-05-18] MEDS: LACTULOSE SYRUP 20 GM/30 ML CUP PEG SCH (08:59)
[2016-05-18] MEDS: SENNOSIDES SYRUP 8.8 MG/5 ML CUP TUBE SCH (09:00)
[2016-05-18] MEDS: NYSTATIN 100,000 U/GM PWD 15 GM BTL TOPICAL SCH ×2 (09:00→21:00)
[2016-05-18] MEDS: METOPROLOL TARTRATE 50 MG TAB PO SCH ×2 (09:00→21:00)
[2016-05-18] MEDS: RANITIDINE HCL SYRUP 150 MG/10 ML UDC PO SCH (09:00)
[2016-05-18] MEDS: DILTIAZEM HCL 90 MG TAB PEG SCH ×4 (09:00→20:40)
[2016-05-18] MEDS: ARTIFICIAL TEARS OPTH OINT 3.5 APPLIC/3.5 GM TUBO EACH EYE SCH ×2 (09:01→21:00)
[2016-05-18] MEDS: POTASSIUM CHLORIDE 25 MEQ EFFERVESCENT TAB TUBE SCH ×2 (09:01→20:39)
[2016-05-18 09:04] LABS: AUTOMATED NEUTROPHIL # 3.8 TH/MM3 (1.8-7.7); BASOPHIL # 0.1 TH/MM3 (0-0.2); BASOPHIL % 1.3 % (0.0-2.0); EOSINOPHIL # 0.2 TH/MM3 (0-0.4); EOSINOPHIL % 2.8 % (0.0-4.0); LYMPH % 21.5 % (9.0-44.0); LYMPHOCYTE # 1.2 TH/MM3 (1.0-4.8); MEAN CELL VOLUME 74.5 FL (80.0-100.0); MEAN CORPUSCULAR HEMOGLOBIN 23.4 PG (27.0-34.0); MEAN CORPUSCULAR HGB CONC 31.4 % (32.0-36.0); MONO % 7.6 % (0.0-8.0); NEUT % 66.8 % (16.0-70.0); PLATELET COUNT 285 TH/MM3 (150-450); RED BLOOD COUNT 3.89 MIL/MM3 (4.50-5.90); RED CELL DISTRIBUTION WIDTH 20.5 % (11.6-17.2); WHITE BLOOD COUNT 5.7 TH/MM3 (4.0-11.0)
[2016-05-18 09:18] LABS: HEMO FLAGS AUTO DIFF
[2016-05-18 09:36] LABS: BICARBONATE 27.6 MEQ/L (21.0-32.0); POTASSIUM 3.9 MEQ/L (3.5-5.1)
[2016-05-18 11:12] LABS: SCAN/DIFF AUTO DIFF CONFIRMED
[2016-05-18] MEDS: cefTRIAXone INJ 2,000 MG in SODIUM CHLORIDE 0.9% INJ 100 ML IV SCH (12:10)
[2016-05-18] MEDS: ACETIC ACID 0.25% SOLN 1000 ML IRR BTL IRRIGATION SCH (12:11)
[2016-05-18] MEDS: PARoxetine HCL SUSP 20 MG/10 ML UDC PEG SCH (17:41)
--- NOTE | 2016-05-18 18:57 | HHI.PR ---
Subjective Remarks Mental status is unchanged. Nonverbal. Does not follow commands. Objective Vitals Vital Signs Date Time Temp Pulse Resp B/P Pulse Ox O2 Delivery O2 Flow Rate FiO2 05/18/16 18:29 T-piece 6.00 28 05/18/16 16:00 96.7 70 20 127/71 99 05/18/16 12:00 97.8 83 24 128/70 92 05/18/16 10:50 98 T-piece 05/18/16 10:50 97 T-piece 05/18/16 08:00 97.3 86 24 121/73 95 05/18/16 04:00 97.2 85 18 124/74 98 05/18/16 00:36 98.0 78 18 118/76 98 05/17/16 22:47 100 T-piece 05/17/16 22:47 100 T-piece 05/17/16 20:18 97.8 89 18 139/84 100 05/17/16 20:00 97 T-Piece 6.00 28 05/17/16 20:00 86 I/O 05/17/16 05/17/16 05/17/16 05/18/16 05/18/16 05/18/16 07:00 15:00 23:00 07:00 15:00 23:00 Output Total 300 ml 1000 ml 400 ml 500 ml 400 ml Balance -300 ml -1000 ml -400 ml -500 ml -400 ml Output Urine Total 300 ml 1000 ml 400 ml 500 ml 400 ml # Bowel Movements 5 1 2 Result Diagram: 05/18/1681405/18/1615 Objective Remarks GENERAL: Nonverbal and in no acute distress. Trach in place SKIN: Warm and dry. CARDIOVASCULAR: Regular rate and rhythm without murmurs, gallops, or rubs. RESPIRATORY: Diffuse coarse breath sounds. Breath sounds equal and clear to auscultation anteriorly GASTROINTESTINAL: Abdomen soft, non-tender, nondistended. PEG tube in place MUSCULOSKELETAL: No cyanosis, or edema. Neuro: Non verbal, non interactive. Eyes open. 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 Significant residual cognitive deficit. -Nonverbal, appears to be in a locked in state. Patient's mother/family does not appear to accept his poor prognosis and continues to hope for recovery "He is my son". -Continue Keppra . Palliative care following. Monitor Keppra level periodically. -cont Paxil as per family request. -Large sacral necrotic mass (6.[address] posterior to sacrum) with destruction of coccyx - stage IV decubitus ulcer versus hematoma vs possible destructive mass - s/p plastics eval who has now signed off. - Dr. Chawla was nurse transitional for colorectal and recommended palliative care consultation also recommended if bleeding is a concern to consider to consult interventional radiology to see if embolization could provide hemostasis rather than a large surgery - seen by Dr. Mars- vascular surgery - - the wound and the patients overall poor prognosis. hospice would be appropriate. Palliative care is following. cultures +klebsiella. pt on abx per ID. no anticoagulation due to bleeding from the wound. cont wound care (packing daily).- On Ceftriaxone per Dr. Liu Discussed with family, including patient's cousin who is a physician in [place]. Dr. Gonzalez offered to discuss with plastic surgery getting a tissue diagnosis to rule out cancer if it would put the patient's family at ease, however pursuing aggressive surgery overlooks the patient's overall poor neurologic prognosis. The patient would not be likely to heal from this large wound given his immobility. - monitor CBC- and H stable - family at bedside- wants to pursue aggressive- they are not ready for hospice at this point - Palliative care involved - 04/23- made alternative code surgery- diverting colostomy cancelled per CRS 06/06 - d/w staff nurse- needed a consent from another family member- family undecided. They do not want surgery, -Fluid overload/edema with positive fluid balance -generalized edema- continues to improve lasix 20 mg IV daily, with albumin, k-lyte 25 meq PEG BID, monitor I/O . ff BMP BMP periodically -A-fib: rate better controlled- continue Lopressor, Cardizem 90 mg qid. NO Coumadin due to significant bleeding from the sacral wound. Respiratory failure: Secondary to CVA. Patient is status post tracheostomy. Pulmonary following. on Fi02 - now at 28% - since 05/10- tolerating well- RT ff along with us- appreciated - Levsin PRN secretions. needs suctioning renew duoneb q 6 Xopenex q 2 prn Anemia of acute blood loss - secondary to bleeding from the wound. S/P transfuse 2 units pRBCs ff H and H H and H stable CRS- surgery cancelled - -GI/Nutrition: Previous PEG tube exchanged by GI at bedside 03/30/2016. -Depression: Continue Paxil. -Coccyx pressure ulcer- cont wound care. -History of Non-Hodgkin lymphoma: s/p brain biopsy on December 13, by Neurosurgery, Dr. Marin, Pathology consistent with acute infarct without evidence of lymphoma -Seen by Oncology, Dr. Whyte, who has signed off -DM: Hemoglobin A1c is 7.0. Continue Levemir with sliding scale insulin- monitor and adjust the regimen as needed. - MRSA in the sputum, tracheobronchitis. Chest x-ray 04/05 was clear. completed course of zyvox. mild hypokalemia; replaced. DVT prophylaxis:SCDs. d/w CM- mother wants more rehab- - no rehab potential family refused diverting colostomy to hep with sacral decubitus healing or at least prevent it from worsening CM requested to look into home health care nursing/wound care or nursing facility Discharge Planning Case management following. Family's goal remain aggressive except for Alternative code status. Palliative care following. Problem Qualifiers (1) DM (diabetes mellitus): Qualified Code: E11.9 - Type 2 diabetes mellitus without complications Jw Bah MD May 18, 2016 18:57
[2016-05-18] MEDS: SODIUM CHLORIDE 0.9% FLUSH 5 ML FLUSH IVF PRN (20:38)
[2016-05-18] MEDS: INSULIN DETEMIR 100 UNITS/ML VIAL SQ SCH (21:50)
[2016-05-19] VITALS (8 sets, daily range): BP systolic 116–134; BP diastolic 61–74; PULSE 75–89; RESP 18–22; TEMP 96.8–97.9; O2SAT 98–100
[2016-05-19] MEDS: ACETAMINOPHEN/HYDROcodone 325 MG/5 MG TAB PEG SCH ×4 (01:25→16:47)
[2016-05-19] MEDS: ACETIC ACID 0.25% SOLN 1000 ML IRR BTL IRRIGATION SCH ×4 (01:29→22:23)
[2016-05-19] MEDS: FREE WATER TUBE SCH ×6 (04:00→20:00)
[2016-05-19] MEDS: INSULIN ASPART SUPPLEMENTAL SCALE SQ SCH ×4 (06:08→21:00)
[2016-05-19] MEDS: POTASSIUM CHLORIDE 25 MEQ EFFERVESCENT TAB TUBE SCH ×2 (07:32→22:04)
[2016-05-19] MEDS: RANITIDINE HCL SYRUP 150 MG/10 ML UDC PO SCH (07:32)
[2016-05-19] MEDS: METOPROLOL TARTRATE 50 MG TAB PO SCH ×2 (07:32→22:03)
[2016-05-19] MEDS: levETIRAcetam 500 MG/5 ML UDC TUBE SCH ×2 (07:32→22:02)
[2016-05-19] MEDS: DILTIAZEM HCL 90 MG TAB PEG SCH ×4 (07:32→22:02)
[2016-05-19] MEDS: LACTOBACILLUS ACIDOPHILUS TAB PEG SCH ×2 (07:32→22:03)
[2016-05-19] MEDS: LACTULOSE SYRUP 20 GM/30 ML CUP PEG SCH (07:33)
[2016-05-19] MEDS: NYSTATIN 100,000 U/GM PWD 15 GM BTL TOPICAL SCH ×2 (07:33→22:05)
[2016-05-19] MEDS: SENNOSIDES SYRUP 8.8 MG/5 ML CUP TUBE SCH (07:33)
[2016-05-19] MEDS: ARTIFICIAL TEARS OPTH OINT 3.5 APPLIC/3.5 GM TUBO EACH EYE SCH ×2 (07:33→22:05)
--- NOTE | 2016-05-19 11:37 | HHI.PR ---
Subjective Remarks Neuro status unchanged. Mother states she will continue to pray. Objective Vitals Vital Signs Date Time Temp Pulse Resp B/P Pulse Ox O2 Delivery O2 Flow Rate FiO2 05/19/16 08:25 98 T-piece 6.00 28 05/19/16 08:25 98 T-piece 6.00 28 05/19/16 04:09 97.6 80 22 134/74 100 05/19/16 00:10 96.8 89 20 123/65 98 05/18/16 20:20 T-Piece 28 05/18/16 20:08 97.9 87 22 116/68 100 05/18/16 20:00 80 05/18/16 18:29 T-piece 6.00 28 05/18/16 16:00 96.7 70 20 127/71 99 05/18/16 12:00 97.8 83 24 128/70 92 I/O 05/18/16 05/18/16 05/18/16 05/19/16 05/19/16 05/19/16 07:00 15:00 23:00 07:00 15:00 23:00 Intake Total 939 ml 746 ml Output Total 500 ml 650 ml 250 ml Balance -500 ml 289 ml 496 ml Intake Oral 0 ml 0 ml Tube Feeding 719 ml 326 ml Other 220 ml 420 ml Output Urine Total 500 ml 650 ml 250 ml # Bowel Movements 1 2 1 Result Diagram: 05/18/1615 05/18/1615 Objective Remarks GENERAL: Nonverbal and in no acute distress. Trach in place SKIN: Warm and dry. CARDIOVASCULAR: Regular rate and rhythm without murmurs, gallops, or rubs. RESPIRATORY: Diffuse coarse breath sounds. Breath sounds equal and clear to auscultation anteriorly GASTROINTESTINAL: Abdomen soft, non-tender, nondistended. PEG tube in place MUSCULOSKELETAL: No cyanosis, or edema. Neuro: Non verbal, non interactive. Eyes open. 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 Significant residual cognitive deficit. -Nonverbal, appears to be in a locked in state. Patient's mother/family does not appear to accept his poor prognosis and continues to hope for recovery "He is my son". -Continue Keppra . Palliative care following. Monitor Keppra level periodically. -cont Paxil as per family request. -Large sacral necrotic mass (6.[address] posterior to sacrum) with destruction of coccyx - stage IV decubitus ulcer versus hematoma vs possible destructive mass - s/p plastics eval who has now signed off. - Dr. Chawla was presentation manager for colorectal and recommended palliative care consultation also recommended if bleeding is a concern to consider to consult interventional radiology to see if embolization could provide hemostasis rather than a large surgery - seen by Dr. Mars- vascular surgery - - the wound and the patients overall poor prognosis. hospice would be appropriate. Palliative care is following. cultures +klebsiella. pt on abx per ID. no anticoagulation due to bleeding from the wound. cont wound care (packing daily).- On Ceftriaxone per Dr. Liu Discussed with family, including patient's cousin who is a physician in [place]. Dr. Gonzalez offered to discuss with plastic surgery getting a tissue diagnosis to rule out cancer if it would put the patient's family at ease, however pursuing aggressive surgery overlooks the patient's overall poor neurologic prognosis. The patient would not be likely to heal from this large wound given his immobility. - monitor CBC- and H stable - family at bedside- wants to pursue aggressive- they are not ready for hospice at this point - Palliative care involved - 04/23- made alternative code surgery- diverting colostomy cancelled per CRS 06/06 - d/w staff nurse- needed a consent from another family member- family undecided. They do not want surgery, -Fluid overload/edema with positive fluid balance -generalized edema- continues to improve lasix 20 mg IV daily, with albumin, k-lyte 25 meq PEG BID, monitor I/O . ff BMP BMP periodically -A-fib: rate better controlled- continue Lopressor, Cardizem 90 mg qid. NO Coumadin due to significant bleeding from the sacral wound. Respiratory failure: Secondary to CVA. Patient is status post tracheostomy. Pulmonary following. on Fi02 - now at 28% - since 05/10- tolerating well- RT ff along with us- appreciated - Levsin PRN secretions. needs suctioning renew duoneb q 6 Xopenex q 2 prn Anemia of acute blood loss - secondary to bleeding from the wound. S/P transfuse 2 units pRBCs ff H and H H and H stable CRS- surgery cancelled - -GI/Nutrition: Previous PEG tube exchanged by GI at bedside 03/30/2016. -Depression: Continue Paxil. -Coccyx pressure ulcer- cont wound care. -History of Non-Hodgkin lymphoma: s/p brain biopsy on December 13, by Neurosurgery, Dr. Marin, Pathology consistent with acute infarct without evidence of lymphoma -Seen by Oncology, Dr. Whyte, who has signed off -DM: Hemoglobin A1c is 7.0. Continue Levemir with sliding scale insulin- monitor and adjust the regimen as needed. - MRSA in the sputum, tracheobronchitis. Chest x-ray 04/05 was clear. completed course of zyvox. mild hypokalemia; replaced. DVT prophylaxis:SCDs. d/w CM- mother wants more rehab- - no rehab potential family refused diverting colostomy to hep with sacral decubitus healing or at least prevent it from worsening CM requested to look into home health care nursing/wound care or nursing facility Discharge Planning Case management following. Family's goal remain aggressive except for Alternative code status. Palliative care following. Problem Qualifiers (1) DM (diabetes mellitus): Qualified Code: E11.9 - Type 2 diabetes mellitus without complications Jw Bah MD May 19, 2016 11:36
[2016-05-19] MEDS: cefTRIAXone INJ 2,000 MG in SODIUM CHLORIDE 0.9% INJ 100 ML IV SCH (12:12)
[2016-05-19] MEDS: PARoxetine HCL SUSP 20 MG/10 ML UDC PEG SCH (18:01)
[2016-05-19] MEDS: INSULIN DETEMIR 100 UNITS/ML VIAL SQ SCH (22:22)
[2016-05-20] VITALS (11 sets, daily range): BP systolic 109–131; BP diastolic 57–74; PULSE 73–82; RESP 18–22; TEMP 95.6–98.6; O2SAT 82–100
[2016-05-20] MEDS: ACETAMINOPHEN/HYDROcodone 325 MG/5 MG TAB PEG SCH ×4 (01:42→18:23)
[2016-05-20] MEDS: FREE WATER TUBE SCH ×6 (04:00→21:04)
[2016-05-20] MEDS: INSULIN ASPART SUPPLEMENTAL SCALE SQ SCH ×4 (06:47→21:04)
[2016-05-20] MEDS: ACETIC ACID 0.25% SOLN 1000 ML IRR BTL IRRIGATION SCH ×3 (06:48→21:04)
[2016-05-20] MEDS: METOPROLOL TARTRATE 50 MG TAB PO SCH ×2 (07:37→21:05)
[2016-05-20] MEDS: POTASSIUM CHLORIDE 25 MEQ EFFERVESCENT TAB TUBE SCH ×2 (07:37→21:04)
[2016-05-20] MEDS: LACTOBACILLUS ACIDOPHILUS TAB PEG SCH ×2 (07:37→21:04)
[2016-05-20] MEDS: DILTIAZEM HCL 90 MG TAB PEG SCH ×4 (07:37→21:04)
[2016-05-20] MEDS: RANITIDINE HCL SYRUP 150 MG/10 ML UDC PO SCH (07:37)
[2016-05-20] MEDS: levETIRAcetam 500 MG/5 ML UDC TUBE SCH ×2 (07:37→21:04)
[2016-05-20] MEDS: SENNOSIDES SYRUP 8.8 MG/5 ML CUP TUBE SCH (07:38)
[2016-05-20] MEDS: LACTULOSE SYRUP 20 GM/30 ML CUP PEG SCH (07:38)
[2016-05-20] MEDS: NYSTATIN 100,000 U/GM PWD 15 GM BTL TOPICAL SCH ×2 (07:39→21:04)
[2016-05-20] MEDS: ARTIFICIAL TEARS OPTH OINT 3.5 APPLIC/3.5 GM TUBO EACH EYE SCH ×2 (07:39→21:04)
--- NOTE | 2016-05-20 10:41 | HHI.PR ---
Subjective Remarks There has been no change in the patient's status. Discussed with case management, family is currently refusing long-term rehabilitation or home health. Essentially they just want the patient to stay here. Objective Vitals Vital Signs Date Time Temp Pulse Resp B/P Pulse Ox O2 Delivery O2 Flow Rate FiO2 05/20/16 10:30 78 05/20/16 08:00 97.1 80 20 120/64 100 05/20/16 07:45 99 T-Piece 6.00 28 05/20/16 04:44 Trach Collar 28 T-Piece Humidified 05/20/16 04:09 97.4 78 22 109/62 100 05/20/16 02:30 80 05/20/16 00:09 97.8 76 22 118/70 98 05/19/16 20:10 97.9 79 22 117/67 98 05/19/16 20:00 75 05/19/16 17:39 98 T-piece 6.00 28 05/19/16 17:38 98 T-piece 6.00 28 05/19/16 16:36 97.8 78 18 116/61 99 I/O 05/19/16 05/19/16 05/19/16 05/20/16 05/20/16 05/20/16 07:00 15:00 23:00 07:00 15:00 23:00 Intake Total 746 ml 200 ml 200 ml Output Total 600 ml 450 ml 1 ml 450 ml Balance 146 ml -450 ml 199 ml -250 ml Intake Oral 0 ml 0 ml Tube Feeding 326 ml Other 420 ml 200 ml 200 ml Output Urine Total 600 ml 450 ml 450 ml Stool Total 1 ml # Bowel Movements 2 1 Result Diagram: 05/18/1681405/18/16814 Objective Remarks GENERAL: Nonverbal and in no acute distress. Trach in place SKIN: Warm and dry. CARDIOVASCULAR: Regular rate and rhythm without murmurs, gallops, or rubs. RESPIRATORY: Diffuse coarse breath sounds. Breath sounds equal and clear to auscultation anteriorly GASTROINTESTINAL: Abdomen soft, non-tender, nondistended. PEG tube in place MUSCULOSKELETAL: No cyanosis, or edema. Neuro: Non verbal, non interactive. Eyes open. 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 Significant residual cognitive deficit. -Nonverbal, appears to be in a locked in state. Patient's mother/family does not appear to accept his poor prognosis and continues to hope for recovery "He is my son". -Continue Keppra . Palliative care following. Monitor Keppra level periodically. -cont Paxil as per family request. -Large sacral necrotic mass (6.[address] posterior to sacrum) with destruction of coccyx - stage IV decubitus ulcer versus hematoma vs possible destructive mass - s/p plastics eval who has now signed off. - Dr. Chawla was wagon driver for colorectal and recommended palliative care consultation also recommended if bleeding is a concern to consider to consult interventional radiology to see if embolization could provide hemostasis rather than a large surgery - seen by Dr. Mars- vascular surgery - - the wound and the patients overall poor prognosis. hospice would be appropriate. Palliative care is following. cultures +klebsiella. pt on abx per ID. no anticoagulation due to bleeding from the wound. cont wound care (packing daily).- On Ceftriaxone per Dr. Liu Discussed with family, including patient's cousin who is a physician in [place]. Dr. Gonzalez offered to discuss with plastic surgery getting a tissue diagnosis to rule out cancer if it would put the patient's family at ease, however pursuing aggressive surgery overlooks the patient's overall poor neurologic prognosis. The patient would not be likely to heal from this large wound given his immobility. - monitor CBC- and H stable - family at bedside- wants to pursue aggressive- they are not ready for hospice at this point - Palliative care involved - 04/23- made alternative code surgery- diverting colostomy cancelled per CRS 06/06 - d/w staff nurse- needed a consent from another family member- family undecided. They do not want surgery, -Fluid overload/edema with positive fluid balance -generalized edema- continues to improve lasix 20 mg IV daily, with albumin, k-lyte 25 meq PEG BID, monitor I/O . ff BMP BMP periodically -A-fib: rate better controlled- continue Lopressor, Cardizem 90 mg qid. NO Coumadin due to significant bleeding from the sacral wound. Respiratory failure: Secondary to CVA. Patient is status post tracheostomy. Pulmonary following. on Fi02 - now at 28% - since 05/10- tolerating well- RT ff along with us- appreciated - Levsin PRN secretions. needs suctioning renew duoneb q 6 Xopenex q 2 prn Anemia of acute blood loss - secondary to bleeding from the wound. S/P transfuse 2 units pRBCs ff H and H H and H stable CRS- surgery cancelled - -GI/Nutrition: Previous PEG tube exchanged by GI at bedside 03/30/2016. -Depression: Continue Paxil. -Coccyx pressure ulcer- cont wound care. -History of Non-Hodgkin lymphoma: s/p brain biopsy on December 13, by Neurosurgery, Dr. Marin, Pathology consistent with acute infarct without evidence of lymphoma -Seen by Oncology, Dr. Whyte, who has signed off -DM: Hemoglobin A1c is 7.0. Continue Levemir with sliding scale insulin- monitor and adjust the regimen as needed. - MRSA in the sputum, tracheobronchitis. Chest x-ray 04/05 was clear. completed course of zyvox. mild hypokalemia; replaced. DVT prophylaxis:SCDs. d/w CM- mother wants more rehab- - no rehab potential family refused diverting colostomy to hep with sacral decubitus healing or at least prevent it from worsening CM requested to look into home health care nursing/wound care or nursing facility. Family currently refusing long-term rehabilitation or home health. Discharge Planning Case management following. Family's goal remain aggressive except for Alternative code status. Palliative care following. Problem Qualifiers (1) DM (diabetes mellitus): Qualified Code: E11.9 - Type 2 diabetes mellitus without complications Jw Bah MD May 20, 2016 10:41
[2016-05-20] MEDS: cefTRIAXone INJ 2,000 MG in SODIUM CHLORIDE 0.9% INJ 100 ML IV SCH (11:56)
[2016-05-20] MEDS: RESP: LEVALBUTEROL HYDROCHLORIDE 0.63 MG/3 ML NEB (PRN) NEB ×2 (17:50→21:55)
[2016-05-20] MEDS: PARoxetine HCL SUSP 20 MG/10 ML UDC PEG SCH (18:23)
[2016-05-20] MEDS: INSULIN DETEMIR 100 UNITS/ML VIAL SQ SCH (21:04)
[2016-05-21] VITALS (10 sets, daily range): BP systolic 112–130; BP diastolic 66–74; PULSE 72–85; RESP 18–20; TEMP 95.8–97.2; O2SAT 97–100
[2016-05-21] MEDS: ACETAMINOPHEN/HYDROcodone 325 MG/5 MG TAB PEG SCH ×4 (00:22→18:29)
[2016-05-21] MEDS: FREE WATER TUBE SCH ×6 (00:54→21:04)
[2016-05-21] MEDS: ACETIC ACID 0.25% SOLN 1000 ML IRR BTL IRRIGATION SCH ×3 (05:40→21:04)
[2016-05-21] MEDS: INSULIN ASPART SUPPLEMENTAL SCALE SQ SCH ×4 (05:45→21:04)
[2016-05-21] MEDS: ARTIFICIAL TEARS OPTH OINT 3.5 APPLIC/3.5 GM TUBO EACH EYE SCH ×2 (08:10→21:04)
[2016-05-21] MEDS: POTASSIUM CHLORIDE 25 MEQ EFFERVESCENT TAB TUBE SCH ×2 (08:10→21:04)
[2016-05-21] MEDS: LACTULOSE SYRUP 20 GM/30 ML CUP PEG SCH (08:11)
[2016-05-21] MEDS: NYSTATIN 100,000 U/GM PWD 15 GM BTL TOPICAL SCH ×2 (08:11→21:04)
[2016-05-21] MEDS: LACTOBACILLUS ACIDOPHILUS TAB PEG SCH ×2 (08:11→20:54)
[2016-05-21] MEDS: SENNOSIDES SYRUP 8.8 MG/5 ML CUP TUBE SCH (08:11)
[2016-05-21] MEDS: DILTIAZEM HCL 90 MG TAB PEG SCH ×4 (08:11→20:53)
[2016-05-21] MEDS: METOPROLOL TARTRATE 50 MG TAB PO SCH ×2 (08:11→20:54)
[2016-05-21] MEDS: RANITIDINE HCL SYRUP 150 MG/10 ML UDC PO SCH (08:11)
[2016-05-21] MEDS: levETIRAcetam 500 MG/5 ML UDC TUBE SCH ×2 (08:13→20:53)
[2016-05-21] MEDS: cefTRIAXone INJ 2,000 MG in SODIUM CHLORIDE 0.9% INJ 100 ML IV SCH (12:39)
--- NOTE | 2016-05-21 14:30 | HHI.PR ---
Subjective Remarks No change in clinical status. Mother at bedside concerned that he may need to be suction. Objective Vitals Vital Signs Date Time Temp Pulse Resp B/P Pulse Ox O2 Delivery O2 Flow Rate FiO2 05/21/16 12:00 97.1 76 18 118/71 98 05/21/16 10:04 85 05/21/16 08:41 99 T-Piece 6.00 28 05/21/16 08:00 97.2 84 20 130/70 97 05/21/16 04:00 96.7 81 18 117/74 97 05/21/16 02:19 83 05/21/16 01:00 95.8 72 18 118/66 98 05/20/16 22:06 97 T-piece 6.00 28 05/20/16 22:01 97 T-piece 6.00 28 05/20/16 19:30 96.0 82 20 131/74 82 05/20/16 16:00 98.6 81 20 120/64 98 I/O 05/20/16 05/20/16 05/20/16 05/21/16 05/21/16 05/21/16 06:59 14:59 22:59 06:59 14:59 22:59 Intake Total 200 ml Output Total 450 ml 1100 ml 1000 ml Balance -250 ml -1100 ml -1000 ml Intake Oral 0 ml Other 200 ml Output Urine Total 450 ml 1100 ml 1000 ml # Bowel Movements 1 3 2 1 Result Diagram: 05/18/1681405/18/16814 Objective Remarks GENERAL: Nonverbal and in no acute distress. Trach in place SKIN: Warm and dry. CARDIOVASCULAR: Regular rate and rhythm without murmurs, gallops, or rubs. RESPIRATORY: Diffuse coarse breath sounds. Breath sounds equal and clear to auscultation anteriorly GASTROINTESTINAL: Abdomen soft, non-tender, nondistended. PEG tube in place MUSCULOSKELETAL: No cyanosis, or edema. Neuro: Non verbal, non interactive. Eyes open. 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 Significant residual cognitive deficit. -Nonverbal, appears to be in a locked in state. Patient's mother/family does not appear to accept his poor prognosis and continues to hope for recovery "He is my son". -Continue Keppra . Palliative care following. Monitor Keppra level periodically. -cont Paxil as per family request. -Large sacral necrotic mass (6.[address] posterior to sacrum) with destruction of coccyx - stage IV decubitus ulcer versus hematoma vs possible destructive mass - s/p plastics eval who has now signed off. - Dr. Chawla was front end ui developer for colorectal and recommended palliative care consultation also recommended if bleeding is a concern to consider to consult interventional radiology to see if embolization could provide hemostasis rather than a large surgery - seen by Dr. Mars- vascular surgery - - the wound and the patients overall poor prognosis. hospice would be appropriate. Palliative care is following. cultures +klebsiella. pt on abx per ID. no anticoagulation due to bleeding from the wound. cont wound care (packing daily).- On Ceftriaxone per Dr. Liu Discussed with family, including patient's cousin who is a physician in [place]. Dr. Gonzalez offered to discuss with plastic surgery getting a tissue diagnosis to rule out cancer if it would put the patient's family at ease, however pursuing aggressive surgery overlooks the patient's overall poor neurologic prognosis. The patient would not be likely to heal from this large wound given his immobility. - monitor CBC- and H stable - family at bedside- wants to pursue aggressive- they are not ready for hospice at this point - Palliative care involved - 04/23- made alternative code surgery- diverting colostomy cancelled per CRS 06/06 - d/w staff nurse- needed a consent from another family member- family undecided. They do not want surgery, -Fluid overload/edema with positive fluid balance -generalized edema- continues to improve lasix 20 mg IV daily, with albumin, k-lyte 25 meq PEG BID, monitor I/O . ff BMP BMP periodically -A-fib: rate better controlled- continue Lopressor, Cardizem 90 mg qid. NO Coumadin due to significant bleeding from the sacral wound. Respiratory failure: Secondary to CVA. Patient is status post tracheostomy. Pulmonary following. on Fi02 - now at 28% - since 05/10- tolerating well- RT ff along with us- appreciated - Levsin PRN secretions. needs suctioning renew duoneb q 6 Xopenex q 2 prn Anemia of acute blood loss - secondary to bleeding from the wound. S/P transfuse 2 units pRBCs ff H and H H and H stable CRS- surgery cancelled - -GI/Nutrition: Previous PEG tube exchanged by GI at bedside 03/30/2016. -Depression: Continue Paxil. -Coccyx pressure ulcer- cont wound care. -History of Non-Hodgkin lymphoma: s/p brain biopsy on December 13, by Neurosurgery, Dr. Marin, Pathology consistent with acute infarct without evidence of lymphoma -Seen by Oncology, Dr. Whyte, who has signed off -DM: Hemoglobin A1c is 7.0. Continue Levemir with sliding scale insulin- monitor and adjust the regimen as needed. - MRSA in the sputum, tracheobronchitis. Chest x-ray 04/05 was clear. completed course of zyvox. mild hypokalemia; replaced. DVT prophylaxis:SCDs. d/w CM- mother wants more rehab- - no rehab potential family refused diverting colostomy to hep with sacral decubitus healing or at least prevent it from worsening CM requested to look into home health care nursing/wound care or nursing facility. Family currently refusing long-term rehabilitation or home health. Discharge Planning Case management following. Family's goal remain aggressive except for Alternative code status. Palliative care following. Problem Qualifiers (1) DM (diabetes mellitus): Qualified Code: E11.9 - Type 2 diabetes mellitus without complications Jw Bah MD May 21, 2016 14:30
[2016-05-21] MEDS: PARoxetine HCL SUSP 20 MG/10 ML UDC PEG SCH (18:28)
[2016-05-21] MEDS: INSULIN DETEMIR 100 UNITS/ML VIAL SQ SCH (21:04)
[2016-05-21] MEDS: RESP: LEVALBUTEROL HYDROCHLORIDE 0.63 MG/3 ML NEB (PRN) NEB (21:25)
[2016-05-22] VITALS (10 sets, daily range): BP systolic 104–129; BP diastolic 62–71; PULSE 66–83; RESP 16–20; TEMP 96.2–97.9; O2SAT 95–99
[2016-05-22] MEDS: FREE WATER TUBE SCH ×6 (00:24→20:00)
[2016-05-22] MEDS: ACETAMINOPHEN/HYDROcodone 325 MG/5 MG TAB PEG SCH ×4 (00:24→18:29)
[2016-05-22] MEDS: ACETIC ACID 0.25% SOLN 1000 ML IRR BTL IRRIGATION SCH ×3 (05:19→21:45)
[2016-05-22] MEDS: INSULIN ASPART SUPPLEMENTAL SCALE SQ SCH ×4 (05:44→22:34)
[2016-05-22] MEDS: ARTIFICIAL TEARS OPTH OINT 3.5 APPLIC/3.5 GM TUBO EACH EYE SCH ×2 (08:06→21:45)
[2016-05-22] MEDS: LACTOBACILLUS ACIDOPHILUS TAB PEG SCH ×2 (08:07→21:43)
[2016-05-22] MEDS: NYSTATIN 100,000 U/GM PWD 15 GM BTL TOPICAL SCH ×2 (08:07→21:00)
[2016-05-22] MEDS: RANITIDINE HCL SYRUP 150 MG/10 ML UDC PO SCH (08:07)
[2016-05-22] MEDS: DILTIAZEM HCL 90 MG TAB PEG SCH ×4 (08:07→21:43)
[2016-05-22] MEDS: POTASSIUM CHLORIDE 25 MEQ EFFERVESCENT TAB TUBE SCH ×2 (08:07→21:44)
[2016-05-22] MEDS: METOPROLOL TARTRATE 50 MG TAB PO SCH ×2 (08:07→21:43)
[2016-05-22] MEDS: LACTULOSE SYRUP 20 GM/30 ML CUP PEG SCH (08:07)
[2016-05-22] MEDS: levETIRAcetam 500 MG/5 ML UDC TUBE SCH ×2 (08:07→21:44)
[2016-05-22] MEDS: SENNOSIDES SYRUP 8.8 MG/5 ML CUP TUBE SCH (08:08)
[2016-05-22] MEDS: ACETAMINOPHEN/HYDROcodone 325 MG/5 MG TAB PO PRN (08:55)
[2016-05-22] MEDS: cefTRIAXone INJ 2,000 MG in SODIUM CHLORIDE 0.9% INJ 100 ML IV SCH (12:19)
--- NOTE | 2016-05-22 15:36 | HHI.PR ---
Subjective Remarks Clinical status unchanged. I discuss the case with the patient's daughter Leanne at length today. Also discussed discharge planning with case management. Objective Vitals Vital Signs Date Time Temp Pulse Resp B/P Pulse Ox O2 Delivery O2 Flow Rate FiO2 05/22/16 12:00 96.5 83 16 129/69 97 05/22/16 11:34 78 05/22/16 09:34 99 T-Piece 6.00 28 05/22/16 08:00 96.5 83 16 129/69 97 05/22/16 04:00 97.9 81 20 122/71 98 05/22/16 00:19 97.6 72 20 104/62 99 05/21/16 22:34 75 05/21/16 20:58 99 T-Piece 6.00 28 05/21/16 20:00 97.1 82 18 112/68 97 05/21/16 18:19 100 T-piece 6.00 28 05/21/16 16:00 96.9 79 18 118/70 100 I/O 05/21/16 05/21/16 05/21/16 05/22/16 05/22/16 05/22/16 07:00 15:00 23:00 07:00 15:00 23:00 Output Total 1000 ml 850 ml 400 ml 800 ml Balance -1000 ml -850 ml -400 ml -800 ml Output Urine Total 1000 ml 850 ml 400 ml 800 ml # Bowel Movements 2 5 Result Diagram: 05/18/1681405/18/16814 Objective Remarks GENERAL: Nonverbal and in no acute distress. Trach in place SKIN: Warm and dry. CARDIOVASCULAR: Regular rate and rhythm without murmurs, gallops, or rubs. RESPIRATORY: Diffuse coarse breath sounds. Breath sounds equal and clear to auscultation anteriorly GASTROINTESTINAL: Abdomen soft, non-tender, nondistended. PEG tube in place MUSCULOSKELETAL: No cyanosis, or edema. Neuro: Non verbal, non interactive. Eyes open. Procedures 01/02/16 PEG placement 01/02/16 tracheostomy Date of Insertion: Mar 07, 2016 A/P Problem List: (1) CVA (cerebral vascular accident) ICD Code: I63.9 Status: Acute (2) A-fib ICD Code: I48.91 Status: Chronic (3) DM (diabetes mellitus) ICD Code: E11.9 Status: Chronic Assessment and Plan 60-year-old male who suffered a severe CVA with multiple worsening comorbid conditions. Patient essentially appeared to be in a locked in state. 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 Significant residual cognitive deficit. -Nonverbal, appears to be in a locked in state. Patient's mother/family does not appear to accept his poor prognosis and continues to hope for recovery "He is my son". -Continue Keppra . Palliative care following. Monitor Keppra level periodically. -cont Paxil as per family request. -Large sacral necrotic mass (6.[address] posterior to sacrum) with destruction of coccyx - stage IV decubitus ulcer versus hematoma vs possible destructive mass - s/p plastics eval who has now signed off. - Dr. Chawla was head of sales promotion for colorectal and recommended palliative care consultation also recommended if bleeding is a concern to consider to consult interventional radiology to see if embolization could provide hemostasis rather than a large surgery - seen by Dr. Mars- vascular surgery - - the wound and the patients overall poor prognosis. hospice would be appropriate. Palliative care is following. cultures +klebsiella. pt on abx per ID. no anticoagulation due to bleeding from the wound. cont wound care (packing daily).- On Ceftriaxone per Dr. Liu Discussed with family, including patient's cousin who is a physician in [place]. Dr. Gonzalez offered to discuss with plastic surgery getting a tissue diagnosis to rule out cancer if it would put the patient's family at ease, however pursuing aggressive surgery overlooks the patient's overall poor neurologic prognosis. The patient would not be likely to heal from this large wound given his immobility. - monitor CBC- and H stable - family at bedside- wants to pursue aggressive- they are not ready for hospice at this point - Palliative care involved - 04/23- made alternative code surgery- diverting colostomy cancelled per CRS 06/06 - d/w staff nurse- needed a consent from another family member- family undecided. They do not want surgery, -Fluid overload/edema with positive fluid balance -generalized edema- continues to improve lasix 20 mg IV daily, with albumin, k-lyte 25 meq PEG BID, monitor I/O . ff BMP BMP periodically -A-fib: rate better controlled- continue Lopressor, Cardizem 90 mg qid. NO Coumadin due to significant bleeding from the sacral wound. Respiratory failure: Secondary to CVA. Patient is status post tracheostomy. Pulmonary following. on Fi02 - now at 28% - since 05/10- tolerating well- RT ff along with us- appreciated - Levsin PRN secretions. needs suctioning renew duoneb q 6 Xopenex q 2 prn Anemia of acute blood loss - secondary to bleeding from the wound. S/P transfuse 2 units pRBCs ff H and H H and H stable CRS- surgery cancelled - -GI/Nutrition: Previous PEG tube exchanged by GI at bedside 03/30/2016. -Depression: Continue Paxil. -Coccyx pressure ulcer- cont wound care. -History of Non-Hodgkin lymphoma: s/p brain biopsy on December 13, by Neurosurgery, Dr. Marin, Pathology consistent with acute infarct without evidence of lymphoma -Seen by Oncology, Dr. Whyte, who has signed off -DM: Hemoglobin A1c is 7.0. Continue Levemir with sliding scale insulin- monitor and adjust the regimen as needed. - MRSA in the sputum, tracheobronchitis. Chest x-ray 04/05 was clear. completed course of zyvox. mild hypokalemia; replaced. DVT prophylaxis:SCDs. d/w CM- mother wants more rehab- - no rehab potential family refused diverting colostomy to hep with sacral decubitus healing or at least prevent it from worsening CM requested to look into home health care nursing/wound care or nursing facility. Family currently refusing long-term rehabilitation or home health. Discharge Planning Case management following. I discussed with the patient's daughter Leanne. She indicated the family is leaning toward taking the patient home if they can get assistance with home health. I discussed with case management. Essentially his options is either to go home with hospice or a long-term care facility. I will ask palliative care to revisit the case and discussed with the family again/provide support and ensure that everyone is on the same page. Problem Qualifiers (1) DM (diabetes mellitus): Qualified Code: E11.9 - Type 2 diabetes mellitus without complications Jw Bah MD May 22, 2016 15:36
[2016-05-22] MEDS: PARoxetine HCL SUSP 20 MG/10 ML UDC PEG SCH (18:29)
[2016-05-22] MEDS: RESP: LEVALBUTEROL HYDROCHLORIDE 0.63 MG/3 ML NEB (PRN) NEB (20:30)
[2016-05-22] MEDS: INSULIN DETEMIR 100 UNITS/ML VIAL SQ SCH (21:44)
[2016-05-23] VITALS (7 sets, daily range): BP systolic 109–143; BP diastolic 61–75; PULSE 73–85; RESP 16–22; TEMP 96.3–98.2; O2SAT 95–100
[2016-05-23] MEDS: ACETAMINOPHEN/HYDROcodone 325 MG/5 MG TAB PEG SCH ×3 (00:27→23:31)
[2016-05-23] MEDS: FREE WATER TUBE SCH ×7 (03:31→23:31)
[2016-05-23] MEDS: INSULIN ASPART SUPPLEMENTAL SCALE SQ SCH ×4 (05:54→21:00)
[2016-05-23] MEDS: ACETIC ACID 0.25% SOLN 1000 ML IRR BTL IRRIGATION SCH ×4 (06:08→22:00)
[2016-05-23] MEDS: RANITIDINE HCL SYRUP 150 MG/10 ML UDC PO SCH (08:25)
[2016-05-23] MEDS: LACTOBACILLUS ACIDOPHILUS TAB PEG SCH ×2 (08:26→22:11)
[2016-05-23] MEDS: levETIRAcetam 500 MG/5 ML UDC TUBE SCH ×2 (08:26→22:11)
[2016-05-23] MEDS: DILTIAZEM HCL 90 MG TAB PEG SCH ×4 (08:31→21:00)
[2016-05-23] MEDS: LACTULOSE SYRUP 20 GM/30 ML CUP PEG SCH (08:31)
[2016-05-23] MEDS: METOPROLOL TARTRATE 50 MG TAB PO SCH ×2 (08:31→22:11)
[2016-05-23] MEDS: ARTIFICIAL TEARS OPTH OINT 3.5 APPLIC/3.5 GM TUBO EACH EYE SCH ×2 (08:32→21:00)
[2016-05-23] MEDS: POTASSIUM CHLORIDE 25 MEQ EFFERVESCENT TAB TUBE SCH ×2 (08:32→22:10)
[2016-05-23] MEDS: SENNOSIDES SYRUP 8.8 MG/5 ML CUP TUBE SCH (08:33)
[2016-05-23] MEDS: NYSTATIN 100,000 U/GM PWD 15 GM BTL TOPICAL SCH ×2 (08:33→21:00)
--- NOTE | 2016-05-23 11:29 | HHI.HCPN ---
Reason for visit a. To assist with evaluation and management of symptoms including: dyspnea, encephalopathy, depression b. To assist medical decision maker(s) with: better understanding of current medical conditions; weighing benefits/burdens of medical treatment options; making medical treatment decisions. Subjective/Interval History Pt seen today to follow up on comfort on scheduled pain medications, as well as goals/medical update to family. Discuss with medical attending Dr. Bah, he spoke with patient daughter regarding discharge planning and possibility of getting patient home either home with home health or home with hospice, they have also been discussing with case management. Patient has remained stable, afebrile. Remains on T piece. No new labs or imaging. No changes in neurological assessment, opens eyes, intermittently tracks. Has been on scheduled around the clock Abingdon 5 mg every 6 hours. Additionally he has prn Abingdon 5 mg for breakthrough pain. Scheduled regimen appears effective has had sparing prn use--required one Abingdon 05/22, 1 on 05/09, 1 on 04/18. Patient seen in room with mother at bedside. She asks me if he is getting better. I gently explained to her that he is not improving that he is stable that we have maximized medical treatments and he is not expected to make further improvements, but he may be expected to have further complications and decline. She is concerned about the ongoing wound on his backside. She does not feel he is currently experiencing any pain. During my exam when I attempt to see if he is tracking/localizing with his eyes, she speaks to him loudly and tries to move his head in appropriate direction, I do not see that he is actively doing these things. I do not see any signs or symptoms of pain. Mother tells me she continues to pray for him every day to get better. Following exam discussed with primary nurse. Call to daughter Leanne to provide medical update. Spoke with Leanne on phone reviewed at length discharge with home health versus discharge with hospice. Explore with her that home health would be focused on curative/restorative care and I am not certain that they would be a good fit for him, additionally home health does not provide 24 /7 care, though they would be supplemental they would need family or privately hired caregivers to care for the patient remainder of the time as he is completely dependent. Alternatively I reviewed with her hospice option, that hospice would be focused on comfort measures only for whatever time patient has left, not restorative or curative. Hospice also will not be able to provide 24/ 7 care, patient would still need primary caregivers either family or privately hired. I also reviewed with her long-term facility placement with hospice services providing support in that setting. All questions answered to the best of my ability. Leanne expresses the family is thinking along the lines of trying to get him home and out of the hospital environment as it may be further stressing the patient. they also have concerns about negative emotions if he should pass in the home setting. She seems to accept at this time that he will eventually pass from additions and debilitated state. She is also not certain that they would be able to meet all of his care needs without additional help. She is going to continue to speak to other family members as well as case management here. Sections made today. History brought forward from initial consult by Rita MOCTEZUMA on 01/10/16: This 59-year-old patient was admitted on 12/21/15 via the ED for facial drooping. ED physician notes that patient and patients are poor historians, EMS reported the could not provide good timelines to them. Patient also reported headache, difficulty ambulating. He had known history of recent findings of mass in the brain. During ED course had deterioration of clinical condition and able to protect his airway, unable to follow commands patient was intubated and CT brain obtained. He was admitted for further evaluation and management to the ICU. Electronic Warfare Specialist was consulted and following patient. Pathology on recent brain biopsy (12/13) still pending. CLINICAL/HOSPITAL COURSE: * CT brain= no focal or acute intracranial hemorrhage. New area decreased density in left occipital lobe suggestive of recent nonhemorrhagic infarct, decreased density in previously noted right occipital lobe has increased in size * Brain MRI = new area of restricted diffusion within left occipital lobe suggesting acute infarct. Interval enlargement of the area of restricted diffusion within right occipital lobe suggesting probable extension of right occipital and started on. Underlying enhancement of right occipital lobe is slightly worse than the previous exam and nonspecific. Biopsy has been performed and results are pending. Tiny focal area of restricted diffusion within right cerebellar hemisphere consistent with probable acute/subacute lacunar infarct. Signal abnormality in the SWI sequence within the right occipital lobe suggesting some hemorrhage in biopsy bed. No midline shift or extra-axial fluid collections. * CXR= no acute cardiopulmonary disease * -Neurology consulted, ordered MRA to look for vertebrobasilar stenosis, echo done last admission notes normal EF with normal valves and normal left atrial size. EEG also ordered. MR venogram ordered. EEG= abnormal study consistent with her encephalopathy. MRV indicated basilar occlusion; neurology notes discussion with family regarding chemical code only, also notes discussion regarding risks associated with the anticoagulates, was discussed with radiologist/INR recommended not helpful to extract basilar clot as this could result in patient's . It was felt the colin was infarcted. Further neurology notes "he could be locked in", is acting as if colin is infarcted. * Oncology known to patient also consulted for non-Hodgkin's lymphoma: Dr Whyte documents that there was no evidence of residual or recurrent disease on CT scans of chest, abdomen, pelvis done in October and November of this year. Pathology was still pending, had been sent to [facility] for [facility] opinion. No acute oncology interventions recommended at that time, will follow. * 12/23 - 12/25 febrile. CPAP trials. Remains on vent off of sedation. Withdrawing to pain. Repeat brain MRI= evolving brainstem stroke. Neurology notes extensive discussion with family, notes discussion the patient is locked in but fully aware, family would like to see help patient does over the next 3 months. 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 Biopsy brain lesion appears consistent with acute infarct no lymphoma. Family desires ongoing aggressive measures, will proceed with tracheostomy. Sputum culture positive sensitive Klebsiella. * 01/01 tracheostomy, PEG tube placement * 01/04 trach collar trials, alternating with T piece. Low-grade fever 100.5. CXR = mild bibasilar atelectasis. Neuro: Spontaneously opening eyes, looking up / down, directionally to commands. * 01/07 still "locked in " , transferred off ICU to regular floor. * 01/08 pulmonology consulted-not CXR clear no evidence of pulmonary infection. He may have some underlying COPD recommends continued aerosol treatments. Further notes long discussion with family at bedside regarding tracheostomy, long-term use of trach until patient able to protect his airway, no further recommendations. Palliative care consulted to assist with clarification of goals of treatment. Advance Directives Living Will: Never completed Health Care Surrogate: Never completed Objective Vital Signs Date Time Temp Pulse Resp B/P Pulse Ox O2 Delivery O2 Flow Rate FiO2 05/23/16 09:15 97 T-piece 28 05/23/16 09:15 97 T-piece 28 05/23/16 08:48 Trach Collar 6.00 28 05/23/16 08:00 96.6 85 18 143/75 100 05/23/16 06:44 20 05/23/16 04:00 96.3 78 22 119/73 95 05/23/16 00:10 96.5 77 18 109/71 99 05/22/16 20:48 97.2 66 20 112/63 95 05/22/16 20:00 81 05/22/16 20:00 Trach Collar 28 05/22/16 17:40 97 T-piece 6.00 28 05/22/16 17:40 97 T-piece 6.00 28 05/22/16 16:00 96.2 74 18 124/65 97 05/22/16 12:00 96.2 77 16 98 05/22/16 11:34 78 Intake & Output 05/23/16 05/23/16 07:00 19:00 Intake Total 1460 ml Output Total 600 ml 0 ml Balance 860 ml 0 ml Tube Feeding 660 ml Other 800 ml Output Urine Total 600 ml Tube Feeding Residual Discard 0 ml 0 ml # Bowel Movements 2 Physical Exam CONSTITUTIONAL/GENERAL: This is an adequately nourished patient, eyes open, gazes to the right TUBES/LINES/DRAINS: Arevalo catheter, PEG tube, tracheostomy, reported ongoing wound to sacrum though I did not visualize. Skin temperature appropriate. Not diaphoretic. CARDIOVASCULAR: Regular rate and rhythm without murmurs.Peripheral pulses symmetric. Trace peripheral edema upper extremities. RESPIRATORY/CHEST: Tracheostomy midline, no symptoms of problems around site. Symmetric, unlabored respirations. T piece, 28% FiO2. Lung sounds with some coarse air movement to upper mo, clear lower. Breath sounds equal bilaterally. GASTROINTESTINAL: Abdomen soft, no apparent tenderness, nondistended. No palpable masses. Bowel sounds normoactive. tube feed infusing via PEG. MUSCULOSKELETAL: Extremities without clubbing, cyanosis. Trace edema upper extremities No joint effusion noted. No mottling or clubbing.+ Muscle atrophy to all 4 extremities. NEUROLOGICAL: Eyes open, gazing to the right. Does not track examiner to the left side of the bed. On any commands. Not able to see meaningful blink response to my questions. No movement of all 4 extremities. PSYCHIATRIC: Difficult to fully assess due to clinical condition. no evident anxiety . Diagnostic Tests Imaging Last Impressions Chest X-Ray 05/16/16 0000 Signed Impressions: Service Date/Time: April 17:35 - CONCLUSION: 1. Tracheostomy in satisfactory position. Mild basilar atelectasis. Durga Dotson MD Abdomen/Pelvis CT 04/12/16 0000 Signed Impressions: Service Date/Time: Tuesday, April 12, 2016 20:52 - CONCLUSION: 1. 6.4 cm necrotic mass or abscess in the soft tissues posteriorly just below the sacrum associated with some bony destructive change of the lower most sacrum and coccyx with inflammatory changes extending into the ischiorectal fossa and into the presacral retroperitoneum predominantly on the left side. There is associated fairly marked mural thickening of the anal verge and rectum. 2. There is gastrostomy and Arevalo catheter present. Stable abdominal aortic aneurysm. Durga Dotson MD Head Magnetic Resonance Angiography 03/05/16 0000 Signed Impressions: Service Date/Time: Saturday, March 05, 2016 09:26 - CONCLUSION: Persistent high-grade subtotal occlusive stenotic lesions in the distal right vertebral artery and proximal basilar artery with significant improvement in flow and recanalization following initial presentation of thrombosis. Stable interstitial circulation without significant stenosis. 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 There is decreasing restricted diffusion and increasing loss of volume characteristic of a subacute to chronic infarct. No evidence of acute infarct, acute hemorrhage mass or edema. Ernesto Kulkarni MD Head CT 01/16/16 0000 Signed Impressions: Service Date/Time: Saturday, January 16, 2016 10:51 - CONCLUSION: No extensive low density in the brainstem colin more prominent in the right the left extending into the right middle cerebellar peduncle consistent with brainstem infarct nonhemorrhagic acute Wellington West MD Abdomen X-Ray 01/14/16 0000 Signed Impressions: Service Date/Time: Thursday, January 14, 2016 10:19 - CONCLUSION: Moderate stool; otherwise, negative. 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 No evidence of carotid stenosis. Glen Zamora MD Head/Brain Mag Res Venography 12/22/15 0000 Signed Impressions: Service Date/Time: Tuesday, December 22, 2015 09:22 - CONCLUSION: Normal MRV. Jonel Jones Jr., MD Procedures * 01/01 tracheostomy, PEG tube placement . 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; EEG indicates encephalopathy, neuro following patient felt to be in a "locked-in "state (2) Non-Hodgkin lymphoma Comment: -In remission status post chemotherapy completed May 2015 (3) Acute respiratory failure Comment: Pulmonology following, medical management (4) A-fib (5) Status post stereotactic brain biopsy (6) Brain lesion Comment: Status post biopsy November 2015; pathology consistent with acute infarct without evidence of lymphoma (7) DM (diabetes mellitus) Symptom Scale: (1) Dysphagia Comment: Status post significant CVA, has had PEG tube placed- no improvement per ongoing ST eval (2) Dyspnea Comment: Respiratory failure secondary to CVA, status post tracheostomy, pulmonary following (3) Encephalopathy Comment: Significant CVA, "locked-in" state -- though pt not noted with consistent attempts to communicate. ? vegetative (4) Malnutrition Comment: Status post PEG tube placement. Episode of emesis yesterday, currently tolerating tube feeding without issue (5) Depression Comment: At risk for related to "locked in status", communication difficulties , situational, but would likely benefit from anti-depressant Pertinent Non-Medical Issues * Psychosocial:Mr. Flores is originally from [place]. He moved to the [place] around 35 years ago, first to [place] and later to [place]. He is not legally but remains with his ex-, Leanne. They have been together for 31+ years and have three children together: Leanne, Gerald, and Ginny. Gerald is currently in [facility] for work. Mr. Flores has 2 brothers and 7 sisters. His father is of old age. His mother is alive and was living with the patient. Greatly enjoys his family. Retired. 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 * Spiritual: * Legal:Patient due to clinical condition is currently unable to participate in medical decision making. Not clear if or when he will regain this ability. Family does not believe he has completed advance directives. per [place] Statutes, medical proxy decision making would fall to the majority of adult children, as Mr. Flores is not legally . * Ethical issues impacting care: Important Contacts Leanne, daughter: [phone] Ginny, daughter: [phone] Gerald Flores, son: currently in [facility] for work but has communication with his siblings. Leanne, ex-: [phone] . Prognosis This patient has had 20 day hospital course thus far, admitted on 62 for a large brainstem infarct, bilateral occipital infarcts. He has subsequently had ongoing encephalopathy and severe communication limitations, neurology feels he is in a "locked-in "state. He has suffered from respiratory failure likely secondary to significant CVA. Appears he should be able to survive this acute hospitalization, however not clear when or if he will regain ability to communicate, based on current assessments patient will require long-term care placement. He will remain high risk for potential competition/setbacks due to immobile status including infections, DVT etc. . Code Status: Full Code Plan * GOALS: Very aggressive. See family conference component on initial consult for additional detail. Meeting In summary: Initially they had many questions regarding admission and biopsy which occurred in November, they ask about differentials and decision making leading to the biopsy, and have many concerns regarding that clinical course--advised that I could not speak to any of those questions or processes as I was not involved in his care and decision making at that time, recommend them to direct those specific questions to those initial providers which provided those services. Otherwise review of conditions, goals as detailed in "issues discussed". Family expresses that Mr. Flores did remarkably well following his chemotherapy for lymphoma just last year, and that he had been doing fine until recent issue in November. They endorsed that he is a fighter, that he is a very optimistic person, and that they are certain he is "in there "and would want to continue fighting for whatever recovery he might have." They have many questions regarding rehabilitation services and placement as well as financial coverage for these services, advised that case management could assist them with the various applications which already in process, but that any placement would depend on funding, or alternatively [facility] placement which is up to any individual institution. They would like to maximize PT/OT/ST ongoing while here in the hospital. They also request courtesy consult of to follow him for pulmonary as he is known to the family through their jain. * 05/23/16: Medical update to daughter Leanne via phone today. Leanne expresses the family is thinking along the lines of trying to get him home and out of the hospital environment as it may be further stressing the patient. I have reviewed with her both home health, as well as hospice services. I do not think the patient would be an appropriate candidate for home health services. He may be an appropriate candidate for hospice if goals are compatible however noting that hospice that will not provide 24/7 care, and patient does not appear appropriate for a care center placement at this time. They also have concerns about negative emotions if he should pass in the home setting. She seems to accept at this time that he will eventually pass from additions and debilitated state. She is not certain that they would be able to meet all of his care needs without additional help. She is going to continue to speak to other family members as well as case management here. Sections made today. * CODE STATUSalt code-- vent only * Symptoms: == Dysphagia--Status post significant CVA, has had PEG tube placed; no improvement per ST following --trial with a passy mikey valve, patient with no response or attempt to verbalize--ST signed off == Dyspnea --Respiratory failure secondary to CVA, status post tracheostomy, pulmonary following; currently no apparent distress/ O2 sats / O2 requirements stable--O2 sat stable == Encephalopathy--Significant CVA, "locked-in" state; follow-up MRI with no significant changes; family endorses patient continues to have limited communication via blinks and eye motion-- does not consistently attempt to communicate w therapies, appears vegetative == Malnutrition--Status post PEG tube placement. currently tolerating TF; having bowel movements,- s/p G tube == depression/anxiety -- At risk for related to "locked in status", communication difficulties, situational, but would likely benefit from anti- depressant. Family reports tearful at times when they talk to him. prev. started on celexa, then d/c per family request. On Paxil per family request. previously tearful at times during exam. No distress observed or reported today , ? Pain versus emotional distress. Will cont to evaluate. == Pain: Previously family reports Tearful, At times blinks/looks up for yes to pain per family, nursing // Potential sources would include large sacral wound, bedbound status. Nursing has expressed that they use PRN sparingly as family has concerns that too much will contribute to his lethargy/ decreased alertness. Family requested [id number] medication for comfort 1 month ago, this was added 1 month ago, patient appearing comfortable on current ATC regimen [norco 5 Q 6 hr ATC], sparing PRN USE. Additionally prn Ativan added for anxiety that may be associated with pain-- no prn ativan required/used. * Palliative care will continue to follow during hospital course as condition evolves, to assist patient/decision-maker with understanding of medical conditions, weighing benefits/burdens of treatment options, for clarification of goals of treatment. Additionally will assist with any symptoms of palliative concern Time Spent Total Floor Time (mins): 25 >50% Counseling/Coord of Care: Yes (d/w daughter, medical attending) Attestation To help prompt me to consider important information that might be impacting today's encounter and assessment, information from prior notes written by myself or my colleagues may have been "brought forward" into today's note. My signature on this note, however, is an attestation that I personally performed the exam, history, and/or decision-making noted today, and, unless otherwise indicated, the interactions with patient, family, and staff as well as the review of records all occurred today. I also attest that the listed assessment and stated plan reflect my best clinical judgment today based on the combination of historical information, prior notes, and today's exam/ interactions. When time spent is documented, it refers only to time spent today by the signer, or if indicated, combined time spent today by collaborating physician/nurse practitioner. Tiara Colin May 23, 2016 11:29
[2016-05-23] MEDS: cefTRIAXone INJ 2,000 MG in SODIUM CHLORIDE 0.9% INJ 100 ML IV SCH (12:53)
--- NOTE | 2016-05-23 13:27 | HHI.PR ---
Subjective Remarks Clinical status unchanged. Discuss with RN. Objective Vitals Vital Signs Date Time Temp Pulse Resp B/P Pulse Ox O2 Delivery O2 Flow Rate FiO2 05/23/16 09:15 97 T-piece 28 05/23/16 09:15 97 T-piece 28 05/23/16 08:48 Trach Collar 6.00 28 05/23/16 08:00 96.6 85 18 143/75 100 05/23/16 06:44 20 05/23/16 04:00 96.3 78 22 119/73 95 05/23/16 00:10 96.5 77 18 109/71 99 05/22/16 20:48 97.2 66 20 112/63 95 05/22/16 20:00 81 05/22/16 20:00 Trach Collar 28 05/22/16 17:40 97 T-piece 6.00 28 05/22/16 17:40 97 T-piece 6.00 28 05/22/16 16:00 96.2 74 18 124/65 97 I/O 05/22/16 05/22/16 05/22/16 05/23/16 05/23/16 05/23/16 07:00 15:00 23:00 07:00 15:00 23:00 Intake Total 1460 ml Output Total 800 ml 650 ml 300 ml 300 ml 0 ml Balance -800 ml -650 ml -300 ml 1160 ml 0 ml Tube Feeding 660 ml Other 800 ml Output Urine Total 800 ml 650 ml 300 ml 300 ml Tube Feeding Residual Discard 0 ml 0 ml # Bowel Movements 4 1 1 Objective Remarks GENERAL: Nonverbal and in no acute distress. Trach in place SKIN: Warm and dry. CARDIOVASCULAR: Regular rate and rhythm without murmurs, gallops, or rubs. RESPIRATORY: Diffuse coarse breath sounds. Breath sounds equal and clear to auscultation anteriorly GASTROINTESTINAL: Abdomen soft, non-tender, nondistended. PEG tube in place MUSCULOSKELETAL: No cyanosis, or edema. Neuro: Non verbal, non interactive. Eyes open. Procedures 01/02/16 PEG placement 01/02/16 tracheostomy Date of Insertion: Mar 07, 2016 A/P Problem List: (1) CVA (cerebral vascular accident) ICD Code: I63.9 Status: Acute (2) A-fib ICD Code: I48.91 Status: Chronic (3) DM (diabetes mellitus) ICD Code: E11.9 Status: Chronic Assessment and Plan 60-year-old male who suffered a severe CVA with multiple worsening comorbid conditions. Patient essentially appeared to be in a locked in state. 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 Significant residual cognitive deficit. -Nonverbal, appears to be in a locked in state. Patient's mother/family does not appear to accept his poor prognosis and continues to hope for recovery "He is my son". -Continue Keppra . Palliative care following. Monitor Keppra level periodically. -cont Paxil as per family request. -Large sacral necrotic mass (6.[address] posterior to sacrum) with destruction of coccyx - stage IV decubitus ulcer versus hematoma vs possible destructive mass - s/p plastics eval who has now signed off. - Dr. Chawla was insulation board head saw operator for colorectal and recommended palliative care consultation also recommended if bleeding is a concern to consider to consult interventional radiology to see if embolization could provide hemostasis rather than a large surgery - seen by Dr. Mars- vascular surgery - - the wound and the patients overall poor prognosis. hospice would be appropriate. Palliative care is following. cultures +klebsiella. pt on abx per ID. no anticoagulation due to bleeding from the wound. cont wound care (packing daily).- On Ceftriaxone per Dr. Liu Discussed with family, including patient's cousin who is a physician in [place]. Dr. Gonzalez offered to discuss with plastic surgery getting a tissue diagnosis to rule out cancer if it would put the patient's family at ease, however pursuing aggressive surgery overlooks the patient's overall poor neurologic prognosis. The patient would not be likely to heal from this large wound given his immobility. - monitor CBC- and H stable - family at bedside- wants to pursue aggressive- they are not ready for hospice at this point - Palliative care involved - 04/23- made alternative code surgery- diverting colostomy cancelled per CRS 06/06 - d/w staff nurse- needed a consent from another family member- family undecided. They do not want surgery, -Fluid overload/edema with positive fluid balance -generalized edema- continues to improve lasix 20 mg IV daily, with albumin, k-lyte 25 meq PEG BID, monitor I/O . ff BMP BMP periodically -A-fib: rate better controlled- continue Lopressor, Cardizem 90 mg qid. NO Coumadin due to significant bleeding from the sacral wound. Respiratory failure: Secondary to CVA. Patient is status post tracheostomy. Pulmonary following. on Fi02 - now at 28% - since 05/10- tolerating well- RT ff along with us- appreciated - Levsin PRN secretions. needs suctioning renew duoneb q 6 Xopenex q 2 prn Anemia of acute blood loss - secondary to bleeding from the wound. S/P transfuse 2 units pRBCs ff H and H H and H stable CRS- surgery cancelled - -GI/Nutrition: Previous PEG tube exchanged by GI at bedside 03/30/2016. -Depression: Continue Paxil. -Coccyx pressure ulcer- cont wound care. -History of Non-Hodgkin lymphoma: s/p brain biopsy on December 13, by Neurosurgery, Dr. Marin, Pathology consistent with acute infarct without evidence of lymphoma -Seen by Oncology, Dr. Whyte, who has signed off -DM: Hemoglobin A1c is 7.0. Continue Levemir with sliding scale insulin- monitor and adjust the regimen as needed. - MRSA in the sputum, tracheobronchitis. Chest x-ray 04/05 was clear. completed course of zyvox. mild hypokalemia; replaced. DVT prophylaxis:SCDs. d/w CM- mother wants more rehab- - no rehab potential family refused diverting colostomy to hep with sacral decubitus healing or at least prevent it from worsening CM requested to look into home health care nursing/wound care or nursing facility. Family currently refusing long-term rehabilitation or home health. Discharge Planning Case management following. Appreciate palliative care following. Family have not been able to make a decision regarding discharge. They would like him to come home but they are unable to take care of him. So far they have refused long-term placement. Problem Qualifiers (1) DM (diabetes mellitus): Qualified Code: E11.9 - Type 2 diabetes mellitus without complications Jw Bah MD May 23, 2016 13:27
[2016-05-23] MEDS: PARoxetine HCL SUSP 20 MG/10 ML UDC PEG SCH (18:41)
[2016-05-23] MEDS: INSULIN DETEMIR 100 UNITS/ML VIAL SQ SCH (21:00)
[2016-05-23] MEDS: RESP: LEVALBUTEROL HYDROCHLORIDE 0.63 MG/3 ML NEB (PRN) NEB (21:57)
[2016-05-24] VITALS (11 sets, daily range): BP systolic 110–125; BP diastolic 61–74; PULSE 79–97; RESP 16–22; TEMP 96.1–98.6; O2SAT 97–100
[2016-05-24] MEDS: FREE WATER TUBE SCH ×5 (04:00→20:00)
[2016-05-24] MEDS: ACETIC ACID 0.25% SOLN 1000 ML IRR BTL IRRIGATION SCH ×3 (06:00→21:26)
[2016-05-24] MEDS: ACETAMINOPHEN/HYDROcodone 325 MG/5 MG TAB PEG SCH ×3 (06:00→17:45)
[2016-05-24] MEDS: INSULIN ASPART SUPPLEMENTAL SCALE SQ SCH ×4 (06:20→21:00)
[2016-05-24] MEDS: levETIRAcetam 500 MG/5 ML UDC TUBE SCH ×2 (07:29→21:23)
[2016-05-24] MEDS: LACTOBACILLUS ACIDOPHILUS TAB PEG SCH ×2 (07:29→21:23)
[2016-05-24] MEDS: POTASSIUM CHLORIDE 25 MEQ EFFERVESCENT TAB TUBE SCH ×2 (07:29→21:23)
[2016-05-24] MEDS: RANITIDINE HCL SYRUP 150 MG/10 ML UDC PO SCH (07:29)
[2016-05-24] MEDS: ARTIFICIAL TEARS OPTH OINT 3.5 APPLIC/3.5 GM TUBO EACH EYE SCH ×2 (07:36→21:00)
[2016-05-24] MEDS: SENNOSIDES SYRUP 8.8 MG/5 ML CUP TUBE SCH (07:37)
[2016-05-24] MEDS: LACTULOSE SYRUP 20 GM/30 ML CUP PEG SCH (07:37)
[2016-05-24] MEDS: NYSTATIN 100,000 U/GM PWD 15 GM BTL TOPICAL SCH ×2 (07:37→21:00)
[2016-05-24] MEDS: METOPROLOL TARTRATE 50 MG TAB PO SCH ×2 (07:39→21:23)
[2016-05-24] MEDS: DILTIAZEM HCL 90 MG TAB PEG SCH ×4 (07:39→21:23)
[2016-05-24] MEDS: cefTRIAXone INJ 2,000 MG in SODIUM CHLORIDE 0.9% INJ 100 ML IV SCH (12:16)
--- NOTE | 2016-05-24 16:30 | HHI.PR ---
Subjective Remarks No change in clinical status. Objective Vitals Vital Signs Date Time Temp Pulse Resp B/P Pulse Ox O2 Delivery O2 Flow Rate FiO2 05/24/16 12:50 98.5 97 22 113/73 100 05/24/16 09:30 99 T-tube 5.00 28 05/24/16 08:40 97.5 82 22 110/70 100 05/24/16 08:09 Trach Collar 6.00 28 05/24/16 04:00 96.1 95 16 125/70 100 05/24/16 00:00 98.5 91 18 110/61 98 05/23/16 21:58 95 T-piece 5.00 28 05/23/16 21:58 95 T-piece 5.00 28 05/23/16 20:00 98.2 84 16 118/63 96 I/O 05/23/16 05/23/16 05/23/16 05/24/16 05/24/16 05/24/16 07:00 15:00 23:00 07:00 15:00 23:00 Intake Total 1460 ml Output Total 300 ml 650 ml 750 ml 1251 ml 0 ml Balance 1160 ml -650 ml -750 ml -1251 ml 0 ml Tube Feeding 660 ml Other 800 ml Output Urine Total 300 ml 650 ml 750 ml 1250 ml Stool Total 1 ml Tube Feeding Residual Discard 0 ml 0 ml # Bowel Movements 1 2 0 1 Objective Remarks GENERAL: Nonverbal and in no acute distress. Trach in place SKIN: Warm and dry. CARDIOVASCULAR: Regular rate and rhythm without murmurs, gallops, or rubs. RESPIRATORY: Diffuse coarse breath sounds. Breath sounds equal and clear to auscultation anteriorly GASTROINTESTINAL: Abdomen soft, non-tender, nondistended. PEG tube in place MUSCULOSKELETAL: No cyanosis, or edema. Neuro: Non verbal, non interactive. Eyes open. Procedures 01/02/16 PEG placement 01/02/16 tracheostomy Date of Insertion: Mar 07, 2016 A/P Problem List: (1) CVA (cerebral vascular accident) ICD Code: I63.9 Status: Acute (2) A-fib ICD Code: I48.91 Status: Chronic (3) DM (diabetes mellitus) ICD Code: E11.9 Status: Chronic Assessment and Plan 60-year-old male who suffered a severe CVA with multiple worsening comorbid conditions. Patient essentially appeared to be in a vegetative state. 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 Significant cognitive deficit. 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 Patient's mother/family does not appear to accept his poor prognosis and continues to hope for recovery "He is my son". -Continue Keppra . Palliative care following. Monitor Keppra level periodically. -cont Paxil as per family request. -Large sacral necrotic mass (6.[address] posterior to sacrum) with destruction of coccyx - stage IV decubitus ulcer versus hematoma vs possible destructive mass - s/p plastics eval who has now signed off. - Dr. Chawla was control clerk head for colorectal and recommended palliative care consultation also recommended if bleeding is a concern to consider to consult interventional radiology to see if embolization could provide hemostasis rather than a large surgery - seen by Dr. Mars- vascular surgery - - the wound and the patients overall poor prognosis. hospice would be appropriate. Palliative care is following. cultures +klebsiella. pt on abx per ID. no anticoagulation due to bleeding from the wound. cont wound care (packing daily).- On Ceftriaxone per Dr. Liu Discussed with family, including patient's cousin who is a physician in [place]. Dr. Gonzalez offered to discuss with plastic surgery getting a tissue diagnosis to rule out cancer if it would put the patient's family at ease, however pursuing aggressive surgery overlooks the patient's overall poor neurologic prognosis. The patient would not be likely to heal from this large wound given his immobility. - monitor CBC- and H stable - family at bedside- wants to pursue aggressive- they are not ready for hospice at this point - Palliative care involved - 04/23- made alternative code surgery- diverting colostomy cancelled per CRS 06/06 - d/w staff nurse- needed a consent from another family member- family undecided. They do not want surgery, -Fluid overload/edema with positive fluid balance -generalized edema- continues to improve lasix 20 mg IV daily, with albumin, k-lyte 25 meq PEG BID, monitor I/O . ff BMP BMP periodically -A-fib: rate better controlled- continue Lopressor, Cardizem 90 mg qid. NO Coumadin due to significant bleeding from the sacral wound. Respiratory failure: Secondary to CVA. Patient is status post tracheostomy. Pulmonary following. on Fi02 - now at 28% - since 05/10- tolerating well- RT ff along with us- appreciated - Levsin PRN secretions. needs suctioning renew duoneb q 6 Xopenex q 2 prn Anemia of acute blood loss - secondary to bleeding from the wound. S/P transfuse 2 units pRBCs ff H and H H and H stable CRS- surgery cancelled - -GI/Nutrition: Previous PEG tube exchanged by GI at bedside 03/30/2016. -Depression: Continue Paxil. -Coccyx pressure ulcer- cont wound care. -History of Non-Hodgkin lymphoma: s/p brain biopsy on December 13, by Neurosurgery, Dr. Marin, Pathology consistent with acute infarct without evidence of lymphoma -Seen by Oncology, Dr. Whyte, who has signed off -DM: Hemoglobin A1c is 7.0. Continue Levemir with sliding scale insulin- monitor and adjust the regimen as needed. - MRSA in the sputum, tracheobronchitis. Chest x-ray 04/05 was clear. completed course of zyvox. mild hypokalemia; replaced. DVT prophylaxis:SCDs. d/w CM- mother wants more rehab- - no rehab potential family refused diverting colostomy to hep with sacral decubitus healing or at least prevent it from worsening CM requested to look into home health care nursing/wound care or nursing facility. Family currently refusing long-term rehabilitation or home health. Discharge Planning Case management following. Appreciate palliative care following. Family have not been able to make a decision regarding discharge. They would like him to come home but they are unable to take care of him. So far they have refused long-term placement. Problem Qualifiers (1) DM (diabetes mellitus): Qualified Code: E11.9 - Type 2 diabetes mellitus without complications Jw Bah MD May 24, 2016 16:30
[2016-05-24] MEDS: PARoxetine HCL SUSP 20 MG/10 ML UDC PEG SCH (17:45)
[2016-05-24] MEDS: INSULIN DETEMIR 100 UNITS/ML VIAL SQ SCH (21:23)
[2016-05-25] VITALS (9 sets, daily range): BP systolic 109–113; BP diastolic 62–68; PULSE 70–84; RESP 14–20; TEMP 97.4–98.5; O2SAT 97–100
[2016-05-25] MEDS: ACETAMINOPHEN/HYDROcodone 325 MG/5 MG TAB PEG SCH ×4 (02:12→18:20)
[2016-05-25] MEDS: FREE WATER TUBE SCH ×6 (04:00→20:00)
[2016-05-25] MEDS: INSULIN ASPART SUPPLEMENTAL SCALE SQ SCH ×4 (04:47→22:00)
[2016-05-25] MEDS: ACETIC ACID 0.25% SOLN 1000 ML IRR BTL IRRIGATION SCH ×3 (04:47→22:10)
[2016-05-25] MEDS: ARTIFICIAL TEARS OPTH OINT 3.5 APPLIC/3.5 GM TUBO EACH EYE SCH ×2 (09:00→22:11)
[2016-05-25] MEDS: NYSTATIN 100,000 U/GM PWD 15 GM BTL TOPICAL SCH ×2 (09:00→22:00)
[2016-05-25] MEDS: METOPROLOL TARTRATE 50 MG TAB PO SCH ×2 (10:16→21:50)
[2016-05-25] MEDS: DILTIAZEM HCL 90 MG TAB PEG SCH ×4 (10:16→21:00)
[2016-05-25] MEDS: LACTOBACILLUS ACIDOPHILUS TAB PEG SCH ×2 (10:16→21:28)
[2016-05-25] MEDS: POTASSIUM CHLORIDE 25 MEQ EFFERVESCENT TAB TUBE SCH ×2 (10:16→21:27)
[2016-05-25] MEDS: LACTULOSE SYRUP 20 GM/30 ML CUP PEG SCH (10:17)
[2016-05-25] MEDS: RANITIDINE HCL SYRUP 150 MG/10 ML UDC PO SCH (10:17)
[2016-05-25] MEDS: levETIRAcetam 500 MG/5 ML UDC TUBE SCH ×2 (10:17→21:28)
[2016-05-25] MEDS: SENNOSIDES SYRUP 8.8 MG/5 ML CUP TUBE SCH (10:17)
[2016-05-25] MEDS: cefTRIAXone INJ 2,000 MG in SODIUM CHLORIDE 0.9% INJ 100 ML IV SCH (12:36)
--- NOTE | 2016-05-25 14:34 | HHI.PR ---
Subjective Remarks No new changes. Objective Vitals Vital Signs Date Time Temp Pulse Resp B/P Pulse Ox O2 Delivery O2 Flow Rate FiO2 05/25/16 12:00 98.0 83 20 113/68 98 05/25/16 10:40 98 T-piece 6.00 28 05/25/16 08:00 97.9 76 20 111/66 98 05/25/16 04:00 97.4 84 14 113/65 100 05/25/16 00:30 99 T-piece 6.00 28 05/25/16 00:30 99 T-piece 6.00 28 05/25/16 00:00 98.4 82 14 113/65 97 05/24/16 20:00 98.6 93 16 122/74 97 05/24/16 19:00 89 05/24/16 18:34 98 T-piece 6.00 28 05/24/16 18:32 100 T-piece 6.00 28 05/24/16 16:00 97.1 85 22 116/69 100 I/O 05/24/16 05/24/16 05/24/16 05/25/16 05/25/16 05/25/16 07:00 15:00 23:00 07:00 15:00 23:00 Intake Total 500 ml Output Total 1251 ml 600 ml 750 ml Balance -1251 ml -600 ml -250 ml Intake Oral 500 ml Output Urine Total 1250 ml 600 ml 750 ml Stool Total 1 ml Tube Feeding Residual Discard 0 ml # Bowel Movements 1 2 2 Objective Remarks GENERAL: Nonverbal and in no acute distress. Trach in place SKIN: Warm and dry. CARDIOVASCULAR: Regular rate and rhythm without murmurs, gallops, or rubs. RESPIRATORY: Diffuse coarse breath sounds. Breath sounds equal and clear to auscultation anteriorly GASTROINTESTINAL: Abdomen soft, non-tender, nondistended. PEG tube in place MUSCULOSKELETAL: No cyanosis, or edema. Neuro: Non verbal, non interactive. Eyes open. Procedures 01/02/16 PEG placement 01/02/16 tracheostomy Date of Insertion: Mar 07, 2016 A/P Problem List: (1) CVA (cerebral vascular accident) ICD Code: I63.9 Status: Acute (2) A-fib ICD Code: I48.91 Status: Chronic (3) DM (diabetes mellitus) ICD Code: E11.9 Status: Chronic Assessment and Plan 60-year-old male who suffered a severe CVA with multiple worsening comorbid conditions. Patient essentially appeared to be in a vegetative state. 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 Significant cognitive deficit. 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 Patient's mother/family does not appear to accept his poor prognosis and continues to hope for recovery "He is my son". -Continue Keppra . Palliative care following. Monitor Keppra level periodically. -cont Paxil as per family request. -Large sacral necrotic mass (6.[address] posterior to sacrum) with destruction of coccyx - stage IV decubitus ulcer versus hematoma vs possible destructive mass - s/p plastics eval who has now signed off. - Dr. Chawla was environmental professional for colorectal and recommended palliative care consultation also recommended if bleeding is a concern to consider to consult interventional radiology to see if embolization could provide hemostasis rather than a large surgery - seen by Dr. Mars- vascular surgery - - the wound and the patients overall poor prognosis. hospice would be appropriate. Palliative care is following. cultures +klebsiella. pt on abx per ID. no anticoagulation due to bleeding from the wound. cont wound care (packing daily).- On Ceftriaxone per Dr. Liu Discussed with family, including patient's cousin who is a physician in [place]. Dr. Gonzalez offered to discuss with plastic surgery getting a tissue diagnosis to rule out cancer if it would put the patient's family at ease, however pursuing aggressive surgery overlooks the patient's overall poor neurologic prognosis. The patient would not be likely to heal from this large wound given his immobility. - monitor CBC- and H stable - family at bedside- wants to pursue aggressive- they are not ready for hospice at this point - Palliative care involved - 04/23- made alternative code surgery- diverting colostomy cancelled per CRS 06/06 - d/w staff nurse- needed a consent from another family member- family undecided. They do not want surgery, -Fluid overload/edema with positive fluid balance -generalized edema- continues to improve lasix 20 mg IV daily, with albumin, k-lyte 25 meq PEG BID, monitor I/O . ff BMP BMP periodically -A-fib: rate better controlled- continue Lopressor, Cardizem 90 mg qid. NO Coumadin due to significant bleeding from the sacral wound. Respiratory failure: Secondary to CVA. Patient is status post tracheostomy. Pulmonary following. on Fi02 - now at 28% - since 05/10- tolerating well- RT ff along with us- appreciated - Levsin PRN secretions. needs suctioning renew duoneb q 6 Xopenex q 2 prn Anemia of acute blood loss - secondary to bleeding from the wound. S/P transfuse 2 units pRBCs H and H stable CRS- surgery cancelled - -GI/Nutrition: Previous PEG tube exchanged by GI at bedside 03/30/2016. -Depression: Continue Paxil. -Coccyx pressure ulcer- cont wound care. -History of Non-Hodgkin lymphoma: s/p brain biopsy on December 13, by Neurosurgery, Dr. Marin, Pathology consistent with acute infarct without evidence of lymphoma -Seen by Oncology, Dr. Whyte, who has signed off -DM: Hemoglobin A1c is 7.0. Continue Levemir with sliding scale insulin- monitor and adjust the regimen as needed. - MRSA in the sputum, tracheobronchitis. Chest x-ray 04/05 was clear. completed course of zyvox. mild hypokalemia; replaced. DVT prophylaxis:SCDs. d/w CM- mother wants more rehab- - no rehab potential family refused diverting colostomy to hep with sacral decubitus healing or at least prevent it from worsening CM requested to look into home health care nursing/wound care or nursing facility. Family currently refusing long-term rehabilitation or home health. Discharge Planning Case management following. Appreciate palliative care following. Family have not been able to make a decision regarding discharge. They would like him to come home but they are unable to take care of him. So far they have refused long-term placement. CM following Problem Qualifiers (1) DM (diabetes mellitus): Qualified Code: E11.9 - Type 2 diabetes mellitus without complications Jw Bah MD May 25, 2016 14:34
[2016-05-25] MEDS: PARoxetine HCL SUSP 20 MG/10 ML UDC PEG SCH (18:19)
[2016-05-25] MEDS: INSULIN DETEMIR 100 UNITS/ML VIAL SQ SCH (22:09)
[2016-05-26] VITALS (10 sets, daily range): BP systolic 112–130; BP diastolic 61–73; PULSE 86–91; RESP 19–22; TEMP 97.4–98.7; O2SAT 93–99
[2016-05-26] MEDS: FREE WATER TUBE SCH ×6 (04:00→20:00)
[2016-05-26] MEDS: ACETAMINOPHEN/HYDROcodone 325 MG/5 MG TAB PEG SCH ×3 (06:00→18:00)
[2016-05-26] MEDS: ACETIC ACID 0.25% SOLN 1000 ML IRR BTL IRRIGATION SCH ×3 (06:30→22:00)
[2016-05-26] MEDS: INSULIN ASPART SUPPLEMENTAL SCALE SQ SCH ×4 (06:53→21:00)
[2016-05-26] MEDS: ARTIFICIAL TEARS OPTH OINT 3.5 APPLIC/3.5 GM TUBO EACH EYE SCH ×2 (08:11→20:56)
[2016-05-26] MEDS: LACTOBACILLUS ACIDOPHILUS TAB PEG SCH ×2 (08:13→20:39)
[2016-05-26] MEDS: SENNOSIDES SYRUP 8.8 MG/5 ML CUP TUBE SCH (08:14)
[2016-05-26] MEDS: levETIRAcetam 500 MG/5 ML UDC TUBE SCH ×2 (08:14→20:39)
[2016-05-26] MEDS: LACTULOSE SYRUP 20 GM/30 ML CUP PEG SCH (08:14)
[2016-05-26] MEDS: RANITIDINE HCL SYRUP 150 MG/10 ML UDC PO SCH (08:14)
[2016-05-26] MEDS: DILTIAZEM HCL 90 MG TAB PEG SCH ×4 (08:14→21:00)
[2016-05-26] MEDS: METOPROLOL TARTRATE 50 MG TAB PO SCH ×2 (08:15→20:39)
[2016-05-26] MEDS: POTASSIUM CHLORIDE 25 MEQ EFFERVESCENT TAB TUBE SCH ×2 (08:15→20:38)
[2016-05-26] MEDS: NYSTATIN 100,000 U/GM PWD 15 GM BTL TOPICAL SCH ×2 (08:15→21:00)
--- NOTE | 2016-05-26 11:24 | HHI.PR ---
Subjective Remarks Patient sen in follow up for afib, dm, sacral wound. No change in condition Objective Vitals Vital Signs Date Time Temp Pulse Resp B/P Pulse Ox O2 Delivery O2 Flow Rate FiO2 05/26/16 08:00 98.1 89 19 119/66 99 05/26/16 05:48 99 T-piece 6.00 28 05/26/16 04:15 98.0 88 22 112/69 94 05/26/16 00:00 98.1 88 22 115/64 98 05/25/16 23:00 75 111/64 99 05/25/16 21:45 98.5 80 20 112/62 99 05/25/16 19:47 Trach Collar 28 05/25/16 19:00 Trach Collar 6.00 28 05/25/16 16:00 97.8 70 18 109/63 100 05/25/16 12:00 98.0 83 20 113/68 98 I/O 05/25/16 05/25/16 05/25/16 05/26/16 05/26/16 05/26/16 07:00 15:00 23:00 07:00 15:00 23:00 Intake Total 500 ml 0 ml 2221 ml Output Total 750 ml 400 ml 600 ml 800 ml Balance -250 ml -400 ml -600 ml 1421 ml Intake Oral 500 ml 0 ml 0 ml Tube Feeding 1521 ml Other 700 ml Output Urine Total 750 ml 400 ml 600 ml 800 ml # Bowel Movements 2 4 0 0 Objective Remarks GENERAL: This is a well-nourished, well-developed patient, eyes open, CARDIOVASCULAR: Sinus tach without murmurs, gallops, or rubs. RESPIRATORY: Tracheostomy Clear to auscultation. Breath sounds equal bilaterally. No wheezes, rales, or rhonchi. GASTROINTESTINAL: PEG tube Abdomen soft, non-tender, nondistended. Normal active bowel sounds MUSCULOSKELETAL: Extremities without clubbing, cyanosis, or edema. NEURO: Encephalopathic, eyes opened on command Procedures 01/02/16 PEG placement 01/02/16 tracheostomy Date of Insertion: Mar 07, 2016 A/P Discharge Planning HD # [id number], Patient with CVA and no changes neurologically, aiden Discussed with family and MedSurg RN sacral wound healing, will discuss Rocephin with ID, off warfarin due to bleeding BSM adequate, on Levemir with sliding scale insulin, TF's BPM adequate Bmp in am, check K Cathy Holden MD May 26, 2016 11:24
[2016-05-26] MEDS: cefTRIAXone INJ 2,000 MG in SODIUM CHLORIDE 0.9% INJ 100 ML IV SCH (12:42)
[2016-05-26] MEDS: ACETAMINOPHEN/HYDROcodone 325 MG/5 MG TAB PO PRN (20:46)
[2016-05-26] MEDS: INSULIN DETEMIR 100 UNITS/ML VIAL SQ SCH (20:56)
[2016-05-27] VITALS (9 sets, daily range): BP systolic 111–124; BP diastolic 68–86; PULSE 73–114; RESP 16–22; TEMP 98–98.7; O2SAT 93–99
[2016-05-27] MEDS: ACETAMINOPHEN/HYDROcodone 325 MG/5 MG TAB PEG SCH ×4 (01:00→17:44)
[2016-05-27] MEDS: FREE WATER TUBE SCH ×6 (04:00→20:00)
[2016-05-27] MEDS: ACETIC ACID 0.25% SOLN 1000 ML IRR BTL IRRIGATION SCH ×3 (06:00→22:00)
[2016-05-27] MEDS: INSULIN ASPART SUPPLEMENTAL SCALE SQ SCH ×4 (07:00→21:00)
[2016-05-27] MEDS: RANITIDINE HCL SYRUP 150 MG/10 ML UDC PO SCH (08:17)
[2016-05-27] MEDS: SODIUM CHLORIDE 0.9% FLUSH 5 ML FLUSH IVF PRN (08:17)
[2016-05-27] MEDS: DILTIAZEM HCL 90 MG TAB PEG SCH ×4 (08:17→20:49)
[2016-05-27] MEDS: POTASSIUM CHLORIDE 25 MEQ EFFERVESCENT TAB TUBE SCH (08:17)
[2016-05-27] MEDS: LACTOBACILLUS ACIDOPHILUS TAB PEG SCH ×2 (08:18→20:49)
[2016-05-27] MEDS: METOPROLOL TARTRATE 50 MG TAB PO SCH ×2 (08:18→20:49)
[2016-05-27] MEDS: levETIRAcetam 500 MG/5 ML UDC TUBE SCH ×2 (08:18→20:49)
[2016-05-27] MEDS: SENNOSIDES SYRUP 8.8 MG/5 ML CUP TUBE SCH (08:18)
[2016-05-27] MEDS: LACTULOSE SYRUP 20 GM/30 ML CUP PEG SCH (08:18)
[2016-05-27] MEDS: ARTIFICIAL TEARS OPTH OINT 3.5 APPLIC/3.5 GM TUBO EACH EYE SCH (08:20)
[2016-05-27 10:48] LABS: BICARBONATE 27.3 MEQ/L (21.0-32.0); POTASSIUM 4.3 MEQ/L (3.5-5.1)
--- NOTE | 2016-05-27 11:50 | HHI.PR ---
Subjective Remarks Patient seen today in follow-up for his encephalopathic state. No new events overnight. Mother at bedside. Objective Vitals Vital Signs Date Time Temp Pulse Resp B/P Pulse Ox O2 Delivery O2 Flow Rate FiO2 05/27/16 10:10 99 21 05/27/16 09:10 98.6 114 22 122/86 93 05/27/16 08:00 107 05/27/16 05:30 98.0 86 20 118/68 99 05/27/16 00:30 98.0 80 19 120/69 98 05/26/16 21:47 93 T-piece 6.00 28 05/26/16 21:00 97.4 88 20 121/73 99 05/26/16 19:45 Trach Collar 6.00 28 05/26/16 16:00 98.7 91 19 117/61 98 05/26/16 14:12 93 T-piece 28 05/26/16 14:12 93 T-piece 28 05/26/16 12:00 97.6 90 20 130/73 98 I/O 05/26/16 05/26/16 05/26/16 05/27/16 05/27/16 05/27/16 07:00 15:00 23:00 07:00 15:00 23:00 Intake Total 2221 ml 0 ml 0 ml Output Total 800 ml 500 ml 500 ml 1000 ml Balance 1421 ml -500 ml -500 ml -1000 ml Intake Oral 0 ml 0 ml 0 ml Tube Feeding 1521 ml Other 700 ml Output Urine Total 800 ml 500 ml 500 ml 1000 ml # Bowel Movements 0 5 1 2 Result Diagram: 05/27/16 0939 Objective Remarks GENERAL: This is a well-nourished, well-developed patient, eyes open, CARDIOVASCULAR: Sinus tach without murmurs, gallops, or rubs. RESPIRATORY: Tracheostomy Clear to auscultation. Breath sounds equal bilaterally. No wheezes, rales, or rhonchi. GASTROINTESTINAL: PEG tube Abdomen soft, non-tender, nondistended. Normal active bowel sounds MUSCULOSKELETAL: Extremities without clubbing, cyanosis, or edema. NEURO: Encephalopathic, eyes opened on command Procedures 01/02/16 PEG placement 01/02/16 tracheostomy Date of Insertion: Mar 07, 2016 A/P Discharge Planning HD # [id number], Patient with CVA and no changes neurologically, aiden Discussed with family and MedSurg RN 1. Sacral wound continues, will continue Rocephin per iD. and watch for further bleeding, off warfarin due to bleeding which appears to have resolved 2. Blood sugar management adequate, on Levemir with sliding scale insulin, TF's 3. Blood pressure management adequate 4. Atrial fibrillation, on diltiazem, metoprolol with good control of right overall, off of warfarin due to bleeding of sacral ulcer, add asa 5. FEN: Tolerating current tube feedings (Nepro 55 mL an hour), free water, change potassium to once daily, DC lactulose/senna due to diarrhea 6. Respiratory failure with tracheostomy, continue bronchodilators Xopenex, trach care with acetic acid, levsin GI prophylaxis zantac, acidophilus Cathy Lindo MD May 27, 2016 11:50 am
[2016-05-27] MEDS: NYSTATIN 100,000 U/GM PWD 15 GM BTL TOPICAL SCH ×2 (12:00→21:00)
[2016-05-27] MEDS: cefTRIAXone INJ 2,000 MG in SODIUM CHLORIDE 0.9% INJ 100 ML IV SCH (12:01)
[2016-05-27] MEDS: ASPIRIN 325 MG TAB TUBE SCH (13:09)
[2016-05-27] MEDS: PARoxetine HCL SUSP 20 MG/10 ML UDC PEG SCH ×2 (17:44→19:00)
[2016-05-27] MEDS: INSULIN DETEMIR 100 UNITS/ML VIAL SQ SCH (20:50)
[2016-05-28] VITALS (9 sets, daily range): BP systolic 89–129; BP diastolic 55–77; PULSE 63–90; RESP 16–20; TEMP 97.1–98.7; O2SAT 96–98
[2016-05-28] MEDS: ACETAMINOPHEN/HYDROcodone 325 MG/5 MG TAB PEG SCH ×4 (00:47→17:53)
[2016-05-28] MEDS: FREE WATER TUBE SCH ×6 (04:00→20:00)
[2016-05-28] MEDS: ACETIC ACID 0.25% SOLN 1000 ML IRR BTL IRRIGATION SCH ×3 (05:15→21:06)
[2016-05-28] MEDS: INSULIN ASPART SUPPLEMENTAL SCALE SQ SCH ×4 (07:00→21:00)
[2016-05-28] MEDS: NYSTATIN 100,000 U/GM PWD 15 GM BTL TOPICAL SCH ×2 (08:55→21:06)
[2016-05-28] MEDS: levETIRAcetam 500 MG/5 ML UDC TUBE SCH ×2 (08:56→21:04)
[2016-05-28] MEDS: POTASSIUM CHLORIDE 25 MEQ EFFERVESCENT TAB TUBE SCH (08:56)
[2016-05-28] MEDS: LACTOBACILLUS ACIDOPHILUS TAB PEG SCH ×2 (08:56→21:03)
[2016-05-28] MEDS: RANITIDINE HCL SYRUP 150 MG/10 ML UDC PO SCH (08:57)
[2016-05-28] MEDS: ASPIRIN 325 MG TAB TUBE SCH (08:57)
[2016-05-28] MEDS: DILTIAZEM HCL 90 MG TAB PEG SCH ×4 (08:57→21:00)
[2016-05-28] MEDS: METOPROLOL TARTRATE 50 MG TAB PO SCH ×2 (08:57→21:03)
[2016-05-28] MEDS: ARTIFICIAL TEARS OPTH OINT 3.5 APPLIC/3.5 GM TUBO EACH EYE SCH ×2 (08:58→21:02)
--- NOTE | 2016-05-28 11:42 | HHI.PR ---
Subjective Remarks Patient seen today in follow-up for Atrial fibrillation, medical management of CVA sequela which include encephalopathy and respiratory failure. No new events. Family at the bedside. Discussed with Eddi URIARTE Objective Vitals Vital Signs Date Time Temp Pulse Resp B/P Pulse Ox O2 Delivery O2 Flow Rate FiO2 05/28/16 10:31 97 T-piece 21 05/28/16 10:27 96 T-Piece 6.00 28 05/28/16 08:32 97.1 82 18 129/76 96 05/28/16 08:18 83 05/28/16 04:00 98.7 90 16 121/77 98 05/28/16 01:13 98 T-Piece 28 Humidified 05/27/16 20:00 82 05/27/16 20:00 98.7 84 16 124/72 97 05/27/16 19:09 16 05/27/16 17:59 99 T-piece 6.00 21 05/27/16 17:13 98.3 73 20 111/69 98 05/27/16 13:37 98.5 83 20 124/74 98 05/27/16 12:31 98 T-Piece 5.00 28 I/O 05/27/16 05/27/16 05/27/16 05/28/16 05/28/16 05/28/16 07:00 15:00 23:00 07:00 15:00 23:00 Intake Total 0 ml 525 ml 733 ml Output Total 1000 ml 500 ml 350 ml Balance -1000 ml -500 ml 525 ml 383 ml Intake Oral 0 ml Tube Feeding 325 ml 333 ml Other 200 ml 400 ml Output Urine Total 1000 ml 500 ml 350 ml # Bowel Movements 2 2 2 1 Result Diagram: 05/27/16 0939 Objective Remarks Sacral ulcer with appropriate wound care GENERAL: This is a well-nourished, well-developed patient, eyes closed CARDIOVASCULAR: Sinus tach without murmurs, gallops, or rubs. RESPIRATORY: Tracheostomy Clear to auscultation. Breath sounds equal bilaterally. No wheezes, rales, or rhonchi. GASTROINTESTINAL: PEG tube Abdomen soft, non-tender, nondistended. Normal active bowel sounds MUSCULOSKELETAL: Extremities without clubbing, cyanosis, or edema. NEURO: Encephalopathic, sleeping Procedures 01/02/16 PEG placement 01/02/16 tracheostomy Date of Insertion: Mar 07, 2016 A/P Problem List: (1) CVA (cerebral vascular accident) ICD Code: I63.9 Status: Acute (2) A-fib ICD Code: I48.91 Status: Chronic (3) DM (diabetes mellitus) ICD Code: E11.9 Status: Chronic Discharge Planning HD # 159, Patient with CVA and no changes neurologically, aiden Discussed with family and MedSurg RN 1. Sacral wound continues, will continue Rocephin indefinitely per ID. and watch for further bleeding, off warfarin due to bleeding which appears to have resolved 2. Blood sugar management adequate, on Levemir with sliding scale insulin, TF's 3. Blood pressure management adequate 4. Atrial fibrillation, on diltiazem, metoprolol with good control of right overall, off of warfarin due to bleeding of sacral ulcer, asa 5. FEN: Tolerating current tube feedings (Nepro 55 mL an hour), free water, potasssium, 6. Respiratory failure with tracheostomy, continue bronchodilators Xopenex, trach care with acetic acid, levsin GI prophylaxis zantac, acidophilus Problem Qualifiers (1) DM (diabetes mellitus): Qualified Code: E11.9 - Type 2 diabetes mellitus without complications Cathy Lindo MD May 28, 2016 11:42
[2016-05-28] MEDS: cefTRIAXone INJ 2,000 MG in SODIUM CHLORIDE 0.9% INJ 100 ML IV SCH (11:57)
[2016-05-28] MEDS: PARoxetine HCL SUSP 20 MG/10 ML UDC PEG SCH (17:52)
[2016-05-28] MEDS: INSULIN DETEMIR 100 UNITS/ML VIAL SQ SCH (21:04)
[2016-05-29] VITALS (8 sets, daily range): BP systolic 96–123; BP diastolic 62–79; PULSE 78–90; RESP 18–22; TEMP 97.9–99.2; O2SAT 96–100
[2016-05-29] MEDS: ACETAMINOPHEN/HYDROcodone 325 MG/5 MG TAB PEG SCH ×4 (00:16→17:53)
[2016-05-29] MEDS: FREE WATER TUBE SCH ×6 (04:00→20:00)
[2016-05-29] MEDS: ACETIC ACID 0.25% SOLN 1000 ML IRR BTL IRRIGATION SCH ×3 (05:57→21:06)
[2016-05-29] MEDS: INSULIN ASPART SUPPLEMENTAL SCALE SQ SCH ×4 (07:00→21:00)
[2016-05-29] MEDS: METOPROLOL TARTRATE 50 MG TAB PO SCH ×2 (09:00→21:04)
[2016-05-29] MEDS: ARTIFICIAL TEARS OPTH OINT 3.5 APPLIC/3.5 GM TUBO EACH EYE SCH ×2 (09:00→21:05)
[2016-05-29] MEDS: LACTOBACILLUS ACIDOPHILUS TAB PEG SCH ×2 (09:17→21:04)
[2016-05-29] MEDS: ASPIRIN 325 MG TAB TUBE SCH (09:17)
[2016-05-29] MEDS: levETIRAcetam 500 MG/5 ML UDC TUBE SCH ×2 (09:18→21:04)
[2016-05-29] MEDS: POTASSIUM CHLORIDE 25 MEQ EFFERVESCENT TAB TUBE SCH (09:18)
[2016-05-29] MEDS: RANITIDINE HCL SYRUP 150 MG/10 ML UDC PO SCH (09:18)
[2016-05-29] MEDS: HYOSCYAMINE 0.125 MG TAB G-TUBE PRN (09:18)
[2016-05-29] MEDS: DILTIAZEM HCL 90 MG TAB PEG SCH ×4 (09:19→21:04)
[2016-05-29] MEDS: NYSTATIN 100,000 U/GM PWD 15 GM BTL TOPICAL SCH ×2 (09:19→21:06)
--- NOTE | 2016-05-29 11:26 | HHI.PR ---
Subjective Remarks Follow-up for Atrial fibrillation, medical management of CVA sequela which include encephalopathy and respiratory failure. No new events. Mother at bedside at the bedside. Discussed with MedSurg RN and consumer banker Objective Vitals Vital Signs Date Time Temp Pulse Resp B/P Pulse Ox O2 Delivery O2 Flow Rate FiO2 05/29/16 09:36 99.2 88 20 96/62 96 05/29/16 04:00 98.3 85 22 116/70 96 05/29/16 00:00 97.9 78 20 105/66 97 05/29/16 00:00 96 T-Piece 5.00 28 Humidified 05/28/16 22:00 74 05/28/16 20:00 97.9 80 19 97/55 96 05/28/16 18:03 96 T-piece 6.00 21 05/28/16 16:00 97.5 70 20 107/61 97 05/28/16 13:00 16 05/28/16 12:45 97.2 63 18 89/57 97 I/O 05/28/16 05/28/16 05/28/16 05/29/16 05/29/16 05/29/16 07:00 15:00 23:00 07:00 15:00 23:00 Intake Total 733 ml 0 ml Output Total 350 ml 600 ml 700 ml 550 ml Balance 383 ml -600 ml -700 ml -550 ml Intake Oral 0 ml Tube Feeding 333 ml Other 400 ml Output Urine Total 350 ml 600 ml 700 ml 550 ml # Bowel Movements 1 1 3 2 Result Diagram: 05/27/16 0939 Objective Remarks Sacral ulcer with appropriate wound care GENERAL: This is a well-nourished, well-developed patient, eyes closed CARDIOVASCULAR: Sinus tach without murmurs, gallops, or rubs. RESPIRATORY: Tracheostomy Clear to auscultation. Breath sounds equal bilaterally. No wheezes, rales, or rhonchi. GASTROINTESTINAL: PEG tube Abdomen soft, non-tender, nondistended. Normal active bowel sounds MUSCULOSKELETAL: Extremities without clubbing, cyanosis, or edema. NEURO: Encephalopathic, sleeping Procedures 01/02/16 PEG placement 01/02/16 tracheostomy Date of Insertion: Mar 07, 2016 A/P Problem List: (1) CVA (cerebral vascular accident) ICD Code: I63.9 Status: Acute (2) A-fib ICD Code: I48.91 Status: Chronic (3) DM (diabetes mellitus) ICD Code: E11.9 Status: Chronic Assessment and Plan Patient with CVA and no changes neurologically, aiden Discussed with Mother at bedside Also discussed with MedSurg RN and consumer banker 1. Sacral wound continues, will continue Rocephin indefinitely per ID. and watch for further bleeding, off warfarin due to bleeding which appears to have resolved 2. Blood sugar management adequate, on Levemir with sliding scale insulin, TF's 3. Blood pressure- has had some hypotension, decrease metoprolol to 50mg BID with hold parameters also add hold parameters to Diltazem. continue to monitor. 4. Atrial fibrillation, on diltiazem, metoprolol with good control of rate overall, off of warfarin due to bleeding of sacral ulcer, asa 5. FEN: Tolerating current tube feedings (Nepro 55 mL an hour), free water, potasssium, 6. Respiratory failure with tracheostomy, continue bronchodilators Xopenex, trach care with acetic acid, levsin GI prophylaxis zantac, acidophilus Problem Qualifiers (1) DM (diabetes mellitus): Qualified Code: E11.9 - Type 2 diabetes mellitus without complications Cherri Pineda May 29, 2016 11:26
[2016-05-29] MEDS: cefTRIAXone INJ 2,000 MG in SODIUM CHLORIDE 0.9% INJ 100 ML IV SCH (12:48)
[2016-05-29] MEDS: PARoxetine HCL SUSP 20 MG/10 ML UDC PEG SCH (18:00)
[2016-05-29] MEDS: INSULIN DETEMIR 100 UNITS/ML VIAL SQ SCH (21:05)
[2016-05-30] VITALS (8 sets, daily range): BP systolic 101–139; BP diastolic 63–70; PULSE 71–87; RESP 16–22; TEMP 96.1–98.6; O2SAT 97–100
[2016-05-30] MEDS: FREE WATER TUBE SCH ×6 (03:40→20:00)
[2016-05-30] MEDS: ACETIC ACID 0.25% SOLN 1000 ML IRR BTL IRRIGATION SCH ×3 (06:01→21:55)
[2016-05-30] MEDS: ACETAMINOPHEN/HYDROcodone 325 MG/5 MG TAB PEG SCH ×4 (06:01→18:27)
[2016-05-30] MEDS: INSULIN ASPART SUPPLEMENTAL SCALE SQ SCH ×4 (06:41→21:00)
[2016-05-30 06:46] LABS: HEMATOCRIT 29.6 % (39.0-51.0); MEAN CELL VOLUME 73.9 FL (80.0-100.0); MEAN CORPUSCULAR HEMOGLOBIN 22.9 PG (27.0-34.0); MEAN CORPUSCULAR HGB CONC 30.9 % (32.0-36.0); PLATELET COUNT 275 TH/MM3 (150-450); RED CELL DISTRIBUTION WIDTH 20.3 % (11.6-17.2); WHITE BLOOD COUNT 4.8 TH/MM3 (4.0-11.0)
[2016-05-30 07:07] LABS: BICARBONATE 29.2 MEQ/L (21.0-32.0); POTASSIUM 3.8 MEQ/L (3.5-5.1)
[2016-05-30] MEDS: RANITIDINE HCL SYRUP 150 MG/10 ML UDC PO SCH (08:50)
[2016-05-30] MEDS: levETIRAcetam 500 MG/5 ML UDC TUBE SCH ×2 (08:50→21:54)
[2016-05-30] MEDS: METOPROLOL TARTRATE 50 MG TAB PO SCH ×2 (08:51→21:54)
[2016-05-30] MEDS: NYSTATIN 100,000 U/GM PWD 15 GM BTL TOPICAL SCH ×2 (08:51→21:55)
[2016-05-30] MEDS: ARTIFICIAL TEARS OPTH OINT 3.5 APPLIC/3.5 GM TUBO EACH EYE SCH ×2 (08:51→21:55)
[2016-05-30] MEDS: DILTIAZEM HCL 90 MG TAB PEG SCH ×4 (08:51→21:54)
[2016-05-30] MEDS: POTASSIUM CHLORIDE 25 MEQ EFFERVESCENT TAB TUBE SCH (08:52)
[2016-05-30] MEDS: ASPIRIN 325 MG TAB TUBE SCH (08:53)
[2016-05-30] MEDS: LACTOBACILLUS ACIDOPHILUS TAB PEG SCH ×2 (08:53→21:00)
[2016-05-30] MEDS: cefTRIAXone INJ 2,000 MG in SODIUM CHLORIDE 0.9% INJ 100 ML IV SCH (12:47)
--- NOTE | 2016-05-30 14:34 | HHI.PR ---
Subjective Remarks Patient seen in follow up for encephalopathy after CVA. Family at the bedside and are very excited about some left hand and finger movements today. HR and BP are stable after changes. Objective Vitals Vital Signs Date Time Temp Pulse Resp B/P Pulse Ox O2 Delivery O2 Flow Rate FiO2 05/30/16 12:00 97.4 73 16 110/68 97 05/30/16 08:00 97.2 87 16 139/63 100 05/30/16 05:27 96.1 85 22 121/70 98 05/30/16 00:19 98.0 71 22 101/67 98 05/30/16 00:00 96 T-Piece 5.00 28 Humidified 05/29/16 22:00 90 05/29/16 21:59 96 T-piece 6.00 28 05/29/16 20:06 98.3 81 22 115/68 97 05/29/16 18:00 98.1 90 18 123/79 100 I/O 05/29/16 05/29/16 05/29/16 05/30/16 05/30/16 05/30/16 06:59 14:59 22:59 06:59 14:59 22:59 Intake Total 650 ml 100 ml 0 ml 700 ml Output Total 550 ml 1000 ml 875 ml 200 ml Balance 100 ml -900 ml -875 ml 500 ml Intake Oral 0 ml 0 ml IV Total 100 ml Other 650 ml 700 ml Output Urine Total 550 ml 1000 ml 875 ml 200 ml # Bowel Movements 2 2 1 Result Diagram: 05/30/16 0557 05/30/16 0557 Objective Remarks Sacral ulcer with appropriate wound care GENERAL: This is a well-nourished, well-developed patient, eyes closed CARDIOVASCULAR: Sinus regular rate without murmurs, gallops, or rubs. RESPIRATORY: Tracheostomy Clear to auscultation. Breath sounds equal bilaterally. No wheezes, rales, or rhonchi. GASTROINTESTINAL: PEG tube Abdomen soft, non-tender, nondistended. Normal active bowel sounds MUSCULOSKELETAL: Extremities without clubbing, cyanosis, or edema. NEURO: Encephalopathic, sleeping Procedures 01/02/16 PEG placement 01/02/16 tracheostomy Date of Insertion: Mar 07, 2016 A/P Problem List: (1) CVA (cerebral vascular accident) ICD Code: I63.9 Status: Acute (2) A-fib ICD Code: I48.91 Status: Chronic (3) DM (diabetes mellitus) ICD Code: E11.9 Status: Chronic Discharge Planning HD # 161, Patient with CVA and no changes neurologically, aiden Discussed with family at bedside 1. Sacral wound continues, will continue Rocephin indefinitely per ID. and watch for further bleeding, off warfarin due to bleeding which appears to have resolved 2. Blood sugar management adequate, on Levemir with sliding scale insulin, TF's 3. Blood pressure, improved with decrease metoprolol to 50mg BID with hold parameters also Diltazem with hold parameters to. continue to monitor. 4. Atrial fibrillation, on diltiazem, metoprolol (with parameters) with good control of rate overall, off of warfarin due to bleeding of sacral ulcer, continue asa 5. FEN: Tolerating current tube feedings (Nepro 55 mL an hour), free water, potassium, 6. Respiratory failure with tracheostomy, continue bronchodilators Xopenex, trach care with acetic acid, Levsin GI prophylaxis Zantac, acidophilus Problem Qualifiers (1) DM (diabetes mellitus): Qualified Code: E11.9 - Type 2 diabetes mellitus without complications Cathy Lindo MD May 30, 2016 14:34
[2016-05-30] MEDS: PARoxetine HCL SUSP 20 MG/10 ML UDC PEG SCH (18:26)
[2016-05-30] MEDS: INSULIN DETEMIR 100 UNITS/ML VIAL SQ SCH (21:54)
[2016-05-31] VITALS (7 sets, daily range): BP systolic 107–140; BP diastolic 66–78; PULSE 69–98; RESP 18–24; TEMP 97–98.5; O2SAT 96–99
[2016-05-31] MEDS: ACETAMINOPHEN/HYDROcodone 325 MG/5 MG TAB PEG SCH ×4 (00:32→18:00)
[2016-05-31] MEDS: FREE WATER TUBE SCH ×5 (04:00→16:00)
[2016-05-31] MEDS: ACETIC ACID 0.25% SOLN 1000 ML IRR BTL IRRIGATION SCH ×3 (05:07→22:00)
[2016-05-31] MEDS: INSULIN ASPART SUPPLEMENTAL SCALE SQ SCH ×4 (05:38→20:25)
[2016-05-31] MEDS: METOPROLOL TARTRATE 50 MG TAB PO SCH ×2 (08:37→20:24)
[2016-05-31] MEDS: levETIRAcetam 500 MG/5 ML UDC TUBE SCH ×2 (08:37→20:24)
[2016-05-31] MEDS: LACTOBACILLUS ACIDOPHILUS TAB PEG SCH ×2 (08:37→20:24)
[2016-05-31] MEDS: POTASSIUM CHLORIDE 25 MEQ EFFERVESCENT TAB TUBE SCH (08:37)
[2016-05-31] MEDS: ARTIFICIAL TEARS OPTH OINT 3.5 APPLIC/3.5 GM TUBO EACH EYE SCH ×2 (08:37→20:25)
[2016-05-31] MEDS: RANITIDINE HCL SYRUP 150 MG/10 ML UDC PO SCH (08:37)
[2016-05-31] MEDS: DILTIAZEM HCL 90 MG TAB PEG SCH ×4 (08:37→20:24)
[2016-05-31] MEDS: NYSTATIN 100,000 U/GM PWD 15 GM BTL TOPICAL SCH ×2 (08:37→20:25)
[2016-05-31] MEDS: ASPIRIN 325 MG TAB TUBE SCH (08:37)
[2016-05-31] MEDS: cefTRIAXone INJ 2,000 MG in SODIUM CHLORIDE 0.9% INJ 100 ML IV SCH (11:59)
--- NOTE | 2016-05-31 12:44 | HHI.PR ---
Subjective Remarks Patient seen in follow-up for encephalopathy after stroke. Also with atrial fibrillation currently rate is controlled on metoprolol and Cardizem. Care plan discussed with family at bedside. Objective Vitals Vital Signs Date Time Temp Pulse Resp B/P Pulse Ox O2 Delivery O2 Flow Rate FiO2 05/31/16 08:58 82 05/31/16 08:37 97 T-Piece 5.00 28 Humidified 05/31/16 08:00 98.2 86 128/78 96 05/31/16 04:00 97.0 85 20 138/72 98 05/31/16 01:30 98.0 98 18 140/73 98 05/30/16 20:00 98.6 76 20 120/66 100 05/30/16 19:00 T-Piece 05/30/16 19:00 81 05/30/16 16:00 97.2 79 16 120/67 97 05/30/16 13:47 18 I/O 05/30/16 05/30/16 05/30/16 05/31/16 05/31/16 05/31/16 07:00 15:00 23:00 07:00 15:00 23:00 Intake Total 700 ml 1150 ml 1150 ml Output Total 200 ml 1200 ml 1800 ml Balance 500 ml -1200 ml 1150 ml -650 ml Tube Feeding 550 ml 550 ml Other 700 ml 600 ml 600 ml Output Urine Total 200 ml 1200 ml 1800 ml Bladder Scan Volume Amount 392 ml # Voids 0 # Bowel Movements 1 3 1 Result Diagram: 05/30/16 0557 05/30/16 0557 Objective Remarks Sacral ulcer with appropriate wound care GENERAL: This is a well-nourished, well-developed patient, eyes closed CARDIOVASCULAR: Sinus regular rate without murmurs, gallops, or rubs. RESPIRATORY: Tracheostomy Clear to auscultation. Breath sounds equal bilaterally. No wheezes, rales, or rhonchi. GASTROINTESTINAL: PEG tube Abdomen soft, non-tender, nondistended. Normal active bowel sounds MUSCULOSKELETAL: Extremities without clubbing, cyanosis, or edema. NEURO: Encephalopathic, sleeping Procedures 01/02/16 PEG placement 01/02/16 tracheostomy Date of Insertion: Mar 07, 2016 A/P Problem List: (1) CVA (cerebral vascular accident) ICD Code: I63.9 Status: Acute (2) A-fib ICD Code: I48.91 Status: Chronic (3) DM (diabetes mellitus) ICD Code: E11.9 Status: Chronic Discharge Planning HD # 162, Patient with CVA and no changes neurologically, aiden Discussed with family at bedside 1. Sacral wound continues, will continue Rocephin indefinitely per ID. and watch for further bleeding, off warfarin due to bleeding which appears to have resolved. BID dressing changes. 2. Blood sugar management adequate, on Levemir with sliding scale insulin, TF's 3. Blood pressure, improved with decrease metoprolol to 50mg BID with hold parameters also Diltazem with hold parameters to avoid hypotension. continue to monitor. 4. Atrial fibrillation, on diltiazem, metoprolol (with parameters) with good control of rate overall, off of warfarin due to bleeding of sacral ulcer, continue asa 5. FEN: Tolerating current tube feedings (Nepro 55 mL an hour), free water, potassium, 6. Respiratory failure with tracheostomy, continue bronchodilators Xopenex, trach care with acetic acid, Levsin GI prophylaxis Zantac, acidophilus Problem Qualifiers (1) DM (diabetes mellitus): Qualified Code: E11.9 - Type 2 diabetes mellitus without complications Cathy Lindo MD May 31, 2016 12:43
[2016-05-31] MEDS: PARoxetine HCL SUSP 20 MG/10 ML UDC PEG SCH (18:44)
[2016-05-31] MEDS: INSULIN DETEMIR 100 UNITS/ML VIAL SQ SCH (20:25)
[2016-05-31] MEDS: SODIUM CHLORIDE 0.9% FLUSH 5 ML FLUSH IVF PRN (20:26)
[2016-06-01] VITALS (8 sets, daily range): BP systolic 105–132; BP diastolic 66–75; PULSE 76–94; RESP 14–20; TEMP 96–98; O2SAT 90–100
[2016-06-01] MEDS: FREE WATER TUBE SCH ×7 (04:00→23:19)
[2016-06-01] MEDS: ACETAMINOPHEN/HYDROcodone 325 MG/5 MG TAB PEG SCH ×5 (06:00→23:27)
[2016-06-01] MEDS: INSULIN ASPART SUPPLEMENTAL SCALE SQ SCH ×4 (06:01→20:58)
[2016-06-01] MEDS: ACETIC ACID 0.25% SOLN 1000 ML IRR BTL IRRIGATION SCH ×3 (06:01→23:19)
[2016-06-01] MEDS: METOPROLOL TARTRATE 50 MG TAB PO SCH ×2 (08:08→23:19)
[2016-06-01] MEDS: RANITIDINE HCL SYRUP 150 MG/10 ML UDC PO SCH (08:08)
[2016-06-01] MEDS: LACTOBACILLUS ACIDOPHILUS TAB PEG SCH ×2 (08:08→20:57)
[2016-06-01] MEDS: DILTIAZEM HCL 90 MG TAB PEG SCH ×4 (08:08→23:19)
[2016-06-01] MEDS: ASPIRIN 325 MG TAB TUBE SCH (08:08)
[2016-06-01] MEDS: POTASSIUM CHLORIDE 25 MEQ EFFERVESCENT TAB TUBE SCH (08:08)
[2016-06-01] MEDS: levETIRAcetam 500 MG/5 ML UDC TUBE SCH ×2 (08:08→20:57)
[2016-06-01] MEDS: NYSTATIN 100,000 U/GM PWD 15 GM BTL TOPICAL SCH ×2 (08:09→20:56)
[2016-06-01] MEDS: ARTIFICIAL TEARS OPTH OINT 3.5 APPLIC/3.5 GM TUBO EACH EYE SCH ×2 (08:09→20:55)
--- NOTE | 2016-06-01 09:15 | HHI.PR ---
Subjective Remarks follow-up for encephalopathy after stroke. Also with atrial fibrillation currently rate is controlled on metoprolol and Cardizem. Family at bedside. Has more trach secretions, discussed with the nurse, needs more suctioning. Care plan discussed with family at bedside. Objective Vitals Vital Signs Date Time Temp Pulse Resp B/P Pulse Ox O2 Delivery O2 Flow Rate FiO2 06/01/16 09:10 97 T-Piece 5.00 28 Humidified 06/01/16 08:11 97.4 94 14 132/75 97 05/31/16 18:07 99 T-piece 6.00 28 05/31/16 16:00 98.5 86 24 107/66 99 05/31/16 12:00 97.7 69 20 107/69 99 05/31/16 12:00 97 T-piece 5.00 28 05/31/16 12:00 97 T-piece 5.00 28 I/O 05/31/16 05/31/16 05/31/16 06/01/16 06/01/16 06/01/16 07:00 15:00 23:00 07:00 15:00 23:00 Intake Total 1150 ml 1100 ml Output Total 1800 ml Balance -650 ml 1100 ml Tube Feeding 550 ml 500 ml Tube Irrigant 600 ml Other 600 ml Output Urine Total 1800 ml # Bowel Movements 1 3 Result Diagram: 05/30/16 0557 05/30/16 0557 Imaging Last Impressions Chest X-Ray 05/16/16 0000 Signed Impressions: Service Date/Time: April 17:35 - CONCLUSION: 1. Tracheostomy in satisfactory position. Mild basilar atelectasis. Durga Dotson MD Abdomen/Pelvis CT 04/12/16 0000 Signed Impressions: Service Date/Time: Tuesday, April 12, 2016 20:52 - CONCLUSION: 1. 6.4 cm necrotic mass or abscess in the soft tissues posteriorly just below the sacrum associated with some bony destructive change of the lower most sacrum and coccyx with inflammatory changes extending into the ischiorectal fossa and into the presacral retroperitoneum predominantly on the left side. There is associated fairly marked mural thickening of the anal verge and rectum. 2. There is gastrostomy and Arevalo catheter present. Stable abdominal aortic aneurysm. Durga Dotson MD Head Magnetic Resonance Angiography 03/05/16 0000 Signed Impressions: Service Date/Time: Saturday, March 05, 2016 09:26 - CONCLUSION: Persistent high-grade subtotal occlusive stenotic lesions in the distal right vertebral artery and proximal basilar artery with significant improvement in flow and recanalization following initial presentation of thrombosis. Stable interstitial circulation without significant stenosis. 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 There is decreasing restricted diffusion and increasing loss of volume characteristic of a subacute to chronic infarct. No evidence of acute infarct, acute hemorrhage mass or edema. Ernesto Kulkarni MD Head CT 01/16/16 0000 Signed Impressions: Service Date/Time: Saturday, January 16, 2016 10:51 - CONCLUSION: No extensive low density in the brainstem colin more prominent in the right the left extending into the right middle cerebellar peduncle consistent with brainstem infarct nonhemorrhagic acute Wellington West MD Abdomen X-Ray 01/14/16 0000 Signed Impressions: Service Date/Time: Thursday, January 14, 2016 10:19 - CONCLUSION: Moderate stool; otherwise, negative. 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 No evidence of carotid stenosis. Glen Zamora MD Head/Brain Mag Res Venography 12/22/15 0000 Signed Impressions: Service Date/Time: Tuesday, December 22, 2015 09:22 - CONCLUSION: Normal MRV. Jonel Jones Jr., MD Objective Remarks Sacral ulcer with appropriate wound care GENERAL: This is a well-nourished, well-developed patient, eyes closed CARDIOVASCULAR: Sinus regular rate without murmurs, gallops, or rubs. RESPIRATORY: Tracheostomy Clear to auscultation. Breath sounds equal bilaterally. No wheezes, rales, or rhonchi. GASTROINTESTINAL: PEG tube Abdomen soft, non-tender, nondistended. Normal active bowel sounds MUSCULOSKELETAL: Extremities without clubbing, cyanosis, or edema. NEURO: Encephalopathic, sleeping Procedures 01/02/16 PEG placement 01/02/16 tracheostomy Date of Insertion: Mar 07, 2016 A/P Problem List: (1) CVA (cerebral vascular accident) ICD Code: I63.9 Status: Acute (2) A-fib ICD Code: I48.91 Status: Chronic (3) DM (diabetes mellitus) ICD Code: E11.9 Status: Chronic Assessment and Plan HD # 163, Patient with CVA and no changes neurologically, aiden Discussed with family at bedside 1. Sacral wound continues, will continue Rocephin indefinitely per ID. and watch for further bleeding, off warfarin due to bleeding which appears to have resolved. BID dressing changes. 2. Blood sugar management adequate, on Levemir with sliding scale insulin, TF's 3. Blood pressure, improved with decrease metoprolol to 50mg BID with hold parameters also Diltazem with hold parameters to avoid hypotension. Continue to monitor. 4. Atrial fibrillation, on diltiazem, metoprolol (with parameters) with good control of rate overall, off of warfarin due to bleeding of sacral ulcer, continue asa 5. FEN: Tolerating current tube feedings (Nepro 55 mL an hour), free water, potassium, 6. Respiratory failure with tracheostomy, continue bronchodilators Xopenex, trach care with acetic acid, Levsin. GI prophylaxis Zantac, acidophilus ENT consult pending Problem Qualifiers (1) DM (diabetes mellitus): Qualified Code: E11.9 - Type 2 diabetes mellitus without complications Nahomy Tatum MD Jun 01, 2016 09:14
[2016-06-01] MEDS: cefTRIAXone INJ 2,000 MG in SODIUM CHLORIDE 0.9% INJ 100 ML IV SCH (12:03)
[2016-06-01] MEDS: PARoxetine HCL SUSP 20 MG/10 ML UDC PEG SCH (18:32)
[2016-06-01] MEDS: INSULIN DETEMIR 100 UNITS/ML VIAL SQ SCH (20:58)
[2016-06-02] VITALS (8 sets, daily range): BP systolic 105–144; BP diastolic 67–86; PULSE 22–90; RESP 17–22; TEMP 95.6–98.4; O2SAT 96–100
[2016-06-02] MEDS: FREE WATER TUBE SCH ×5 (04:00→20:00)
[2016-06-02] MEDS: ACETAMINOPHEN/HYDROcodone 325 MG/5 MG TAB PEG SCH ×3 (05:57→17:39)
[2016-06-02] MEDS: ACETIC ACID 0.25% SOLN 1000 ML IRR BTL IRRIGATION SCH ×3 (05:57→20:41)
[2016-06-02] MEDS: INSULIN ASPART SUPPLEMENTAL SCALE SQ SCH ×4 (06:06→20:40)
[2016-06-02] MEDS: levETIRAcetam 500 MG/5 ML UDC TUBE SCH ×2 (07:52→20:37)
[2016-06-02] MEDS: METOPROLOL TARTRATE 50 MG TAB PO SCH ×2 (07:53→20:37)
[2016-06-02] MEDS: RANITIDINE HCL SYRUP 150 MG/10 ML UDC PO SCH (07:53)
[2016-06-02] MEDS: DILTIAZEM HCL 90 MG TAB PEG SCH ×4 (07:53→20:37)
[2016-06-02] MEDS: POTASSIUM CHLORIDE 25 MEQ EFFERVESCENT TAB TUBE SCH (07:53)
[2016-06-02] MEDS: ASPIRIN 325 MG TAB TUBE SCH (07:53)
[2016-06-02] MEDS: ARTIFICIAL TEARS OPTH OINT 3.5 APPLIC/3.5 GM TUBO EACH EYE SCH ×2 (07:54→20:38)
[2016-06-02] MEDS: LACTOBACILLUS ACIDOPHILUS TAB PEG SCH ×2 (07:54→20:37)
[2016-06-02] MEDS: NYSTATIN 100,000 U/GM PWD 15 GM BTL TOPICAL SCH ×2 (07:55→20:40)
[2016-06-02] MEDS: cefTRIAXone INJ 2,000 MG in SODIUM CHLORIDE 0.9% INJ 100 ML IV SCH (12:10)
--- NOTE | 2016-06-02 12:21 | HHI.PR ---
Subjective Remarks Patient seen earlier today approximately 10 AM follow-up for encephalopathy after stroke, A Fib atrial fibrillation currently rate is controlled on metoprolol and Cardizem. Family at bedside. Trach secretions requiring suctioning. Objective Vitals Vital Signs Date Time Temp Pulse Resp B/P Pulse Ox O2 Delivery O2 Flow Rate FiO2 06/02/16 12:13 95.6 74 17 105/67 99 06/02/16 10:51 97.1 79 20 107/71 98 06/02/16 09:08 99 T-piece 7.00 28 06/02/16 09:08 99 T-piece 7.00 28 06/02/16 08:59 97 T-Piece 5.00 28 Humidified 06/02/16 04:00 98.1 79 20 130/70 98 06/02/16 00:00 97.4 86 22 135/73 96 06/01/16 23:00 80 06/01/16 22:00 T-Piece 6.00 28 Humidified 06/01/16 20:00 97.9 83 20 119/73 100 06/01/16 17:43 T-piece 6.00 28 06/01/16 17:00 96.0 86 16 120/69 96 06/01/16 14:25 99 21 I/O 06/01/16 06/01/16 06/01/16 06/02/16 06/02/16 06/02/16 07:00 15:00 23:00 07:00 15:00 23:00 Intake Total 1100 ml Output Total 875 ml 600 ml 400 ml Balance 225 ml -600 ml -400 ml Tube Feeding 500 ml Tube Irrigant 600 ml Output Urine Total 875 ml 600 ml 400 ml # Bowel Movements 2 1 0 Result Diagram: 05/30/16 0557 05/30/16 0557 Objective Remarks Sacral ulcer with appropriate wound care- dressing present GENERAL: This is a well-nourished, well-developed patient, eyes closed CARDIOVASCULAR: Sinus tach without murmurs, gallops, or rubs. RESPIRATORY: Tracheostomy Clear to auscultation. Breath sounds equal bilaterally. No wheezes, rales, or rhonchi. GASTROINTESTINAL: PEG tube Abdomen soft, non-tender, nondistended. Normal active bowel sounds MUSCULOSKELETAL: Extremities without clubbing, cyanosis, or edema. NEURO: Encephalopathic, sleeping Procedures 01/02/16 PEG placement 01/02/16 tracheostomy Date of Insertion: Mar 07, 2016 A/P Problem List: (1) CVA (cerebral vascular accident) ICD Code: I63.9 Status: Acute (2) A-fib ICD Code: I48.91 Status: Chronic (3) DM (diabetes mellitus) ICD Code: E11.9 Status: Chronic Assessment and Plan Patient with CVA and no changes neurologically, aiden Discussed with Mother and who are at bedside 1. Sacral wound continues, will continue Rocephin indefinitely per ID. and watch for further bleeding, off warfarin due to bleeding which appears to have resolved More frequent dressing changes (twice a day ) per wound care recommendations 2. Blood sugar management adequate, on Levemir with sliding scale insulin, TF's 3. Blood pressure-continue metoprolol to 50mg BID with hold parameters also add hold parameters to Diltazem. continue to monitor. 4. Atrial fibrillation, on diltiazem, metoprolol with good control of rate overall, off of warfarin due to bleeding of sacral ulcer, asa 5. FEN: Tolerating current tube feedings (Nepro 55 mL an hour), free water, potasssium, 6. Respiratory failure with tracheostomy, continue bronchodilators Xopenex, trach care with acetic acid, levsin GI prophylaxis zantac, acidophilus Problem Qualifiers (1) DM (diabetes mellitus): Qualified Code: E11.9 - Type 2 diabetes mellitus without complications Cherri Pineda Jun 02, 2016 12:21 Nahomy Tatum MD Jun 02, 2016 15:19
[2016-06-02] MEDS: PARoxetine HCL SUSP 20 MG/10 ML UDC PEG SCH (17:39)
[2016-06-02] MEDS: INSULIN DETEMIR 100 UNITS/ML VIAL SQ SCH (20:37)
[2016-06-03] VITALS (8 sets, daily range): BP systolic 102–132; BP diastolic 63–76; PULSE 69–87; RESP 14–21; TEMP 96.5–97.4; O2SAT 97–100
[2016-06-03] MEDS: ACETAMINOPHEN/HYDROcodone 325 MG/5 MG TAB PEG SCH ×5 (00:30→23:40)
[2016-06-03] MEDS: FREE WATER TUBE SCH ×7 (04:00→23:40)
[2016-06-03] MEDS: ACETIC ACID 0.25% SOLN 1000 ML IRR BTL IRRIGATION SCH ×3 (06:00→22:03)
[2016-06-03] MEDS: INSULIN ASPART SUPPLEMENTAL SCALE SQ SCH ×4 (07:00→21:00)
[2016-06-03] MEDS: ARTIFICIAL TEARS OPTH OINT 3.5 APPLIC/3.5 GM TUBO EACH EYE SCH ×2 (07:58→21:55)
[2016-06-03] MEDS: POTASSIUM CHLORIDE 25 MEQ EFFERVESCENT TAB TUBE SCH (08:00)
[2016-06-03] MEDS: LACTOBACILLUS ACIDOPHILUS TAB PEG SCH ×2 (08:00→21:54)
[2016-06-03] MEDS: RANITIDINE HCL SYRUP 150 MG/10 ML UDC PO SCH (08:00)
[2016-06-03] MEDS: DILTIAZEM HCL 90 MG TAB PEG SCH ×4 (08:00→21:54)
[2016-06-03] MEDS: levETIRAcetam 500 MG/5 ML UDC TUBE SCH ×2 (08:00→21:54)
[2016-06-03] MEDS: METOPROLOL TARTRATE 50 MG TAB PO SCH ×2 (08:00→21:54)
[2016-06-03] MEDS: ASPIRIN 325 MG TAB TUBE SCH (08:00)
[2016-06-03] MEDS: NYSTATIN 100,000 U/GM PWD 15 GM BTL TOPICAL SCH ×2 (08:00→21:55)
[2016-06-03] MEDS: cefTRIAXone INJ 2,000 MG in SODIUM CHLORIDE 0.9% INJ 100 ML IV SCH (12:21)
--- NOTE | 2016-06-03 15:07 | HHI.PR ---
Subjective Remarks Follow-up for CVA/sacral wound. Discussed with RN, no acute issues overnight. Patient seen with his mother at bedside, no acute concerns. Breathing well status post suctioning today. Wound dressing was changed earlier today. Objective Vitals Vital Signs Date Time Temp Pulse Resp B/P Pulse Ox O2 Delivery O2 Flow Rate FiO2 06/03/16 12:13 97.2 69 20 114/69 100 06/03/16 10:47 97 T-piece 6.00 28 06/03/16 08:03 98 T-Piece 6.00 28 Humidified 06/03/16 08:00 97.4 78 21 132/76 97 06/03/16 00:00 96.5 87 14 121/69 99 06/02/16 20:57 98 T-piece 6.00 28 06/02/16 20:05 T-Piece 6.00 28 Humidified 06/02/16 20:00 96.7 90 18 128/70 98 06/02/16 18:00 98.4 22 22 144/86 100 I/O 06/02/16 06/02/16 06/02/16 06/03/16 06/03/16 06/03/16 07:00 15:00 23:00 07:00 15:00 23:00 Output Total 400 ml 702 ml Balance -400 ml -702 ml Output Urine Total 400 ml 700 ml Stool Total 2 ml # Bowel Movements 0 Result Diagram: 05/30/16 0557 05/30/16 0557 Objective Remarks GENERAL: Well-developed well-nourished. In no acute distress. SKIN: Warm and dry. Sacral ulcer with clean dressing. HEENT: Normocephalic. Pupils equal and round. Mucous membranes pink and moist. Trach in place. CARDIOVASCULAR: Irregular but controlled rate and irregular rhythm. No murmur appreciated. RESPIRATORY: No accessory muscle use. Clear to auscultation. Breath sounds equal bilaterally. GASTROINTESTINAL: Abdomen soft, non-tender, nondistended. Bowel sounds x4. PEG in place. MUSCULOSKELETAL: No obvious deformities. No clubbing or cyanosis. No edema. NEUROLOGICAL: Sleeping. Locked in. Nonverbal. 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 Non verbal. Continue Keppra. Palliative care following. Chronic respiratory failure: Secondary to CVA, Status post tracheostomy. Continue pulmonary toilet and neb treatments as needed. Continue bronchodilators Xopenex, trach care with acetic acid, levsin prn, suctioning. A-fib: Continue rate control with Cardizem and metoprolol. Echocardiogram completed in November shows preserved EF. Coumadin discontinued secondary to bleeding from cyclosporine. History of Non-Hodgkin lymphoma: s/p brain biopsy on December 13, by Neurosurgery, Dr. Marin. Pathology consistent with acute infarct without evidence of lymphoma. Oncology signed off with no active oncology issues. DM (diabetes mellitus): HgbA1c 7.0. Continue Levemir 35u daily. Continue sliding scale coverage. Monitor accuchecks and adjust the regimen as needed. Decubitus ulcer stage IV: Continue Rocephin indefinitely (on lactinex) per ID until OM is ruled out with bone biopdy and watch for further bleeding (off warfarin due to bleeding which appears to have resolved). Continue dressing changes twice daily per wound care recommendations. GI/Nutrition: Continue Nepro at 55 cc/hr per dietitian recommendations. Free water. Potassium supplement. Problem Qualifiers (1) DM (diabetes mellitus): Qualified Code: E11.9 - Type 2 diabetes mellitus without complications Floyd Vinson Jun 03, 2016 15:07 Thomas Buck MD Jun 03, 2016 22:33
[2016-06-03] MEDS: PARoxetine HCL SUSP 20 MG/10 ML UDC PEG SCH (18:19)
[2016-06-03] MEDS: INSULIN DETEMIR 100 UNITS/ML VIAL SQ SCH (23:20)
[2016-06-04] VITALS (7 sets, daily range): BP systolic 107–134; BP diastolic 62–86; PULSE 69–87; RESP 19–20; TEMP 96.4–98.8; O2SAT 96–99
[2016-06-04] MEDS: FREE WATER TUBE SCH ×5 (04:10→20:14)
[2016-06-04] MEDS: ACETAMINOPHEN/HYDROcodone 325 MG/5 MG TAB PEG SCH ×3 (05:47→18:17)
[2016-06-04] MEDS: ACETIC ACID 0.25% SOLN 1000 ML IRR BTL IRRIGATION SCH ×3 (05:47→20:15)
[2016-06-04] MEDS: INSULIN ASPART SUPPLEMENTAL SCALE SQ SCH ×4 (06:45→20:15)
[2016-06-04] MEDS: ASPIRIN 325 MG TAB TUBE SCH (07:58)
[2016-06-04] MEDS: LACTOBACILLUS ACIDOPHILUS TAB PEG SCH ×2 (07:58→20:14)
[2016-06-04] MEDS: DILTIAZEM HCL 90 MG TAB PEG SCH ×4 (07:58→20:14)
[2016-06-04] MEDS: levETIRAcetam 500 MG/5 ML UDC TUBE SCH ×2 (07:58→20:15)
[2016-06-04] MEDS: METOPROLOL TARTRATE 50 MG TAB PO SCH ×2 (07:58→20:14)
[2016-06-04] MEDS: POTASSIUM CHLORIDE 25 MEQ EFFERVESCENT TAB TUBE SCH (07:59)
[2016-06-04] MEDS: NYSTATIN 100,000 U/GM PWD 15 GM BTL TOPICAL SCH ×2 (07:59→20:14)
[2016-06-04] MEDS: ARTIFICIAL TEARS OPTH OINT 3.5 APPLIC/3.5 GM TUBO EACH EYE SCH ×2 (07:59→20:14)
[2016-06-04] MEDS: RANITIDINE HCL SYRUP 150 MG/10 ML UDC PO SCH (07:59)
[2016-06-04] MEDS: cefTRIAXone INJ 2,000 MG in SODIUM CHLORIDE 0.9% INJ 100 ML IV SCH (12:39)
--- NOTE | 2016-06-04 13:48 | HHI.PR ---
Subjective Remarks Follow-up for CVA and sacral wound. Discussed with RN, wound dressing change earlier, scant sanguinous drainage, unchanged. Patient with family at bedside and, no acute concerns. No significant changes. Objective Vitals Vital Signs Date Time Temp Pulse Resp B/P Pulse Ox O2 Delivery O2 Flow Rate FiO2 06/04/16 13:27 96.4 73 20 107/62 99 06/04/16 11:26 T-Piece 6.00 28 06/04/16 09:55 97.3 84 20 120/79 99 06/04/16 04:00 T-Piece 6.00 28 06/04/16 04:00 98.8 87 20 112/70 96 06/04/16 00:00 T-Piece 6.00 28 06/04/16 00:00 97.9 72 20 120/76 96 06/03/16 20:00 97.1 80 20 123/69 97 06/03/16 20:00 T-Piece 6.00 28 06/03/16 18:31 72 06/03/16 17:36 75 06/03/16 16:28 97.4 73 20 102/63 100 I/O 06/03/16 06/03/16 06/03/16 06/04/16 06/04/16 06/04/16 07:00 15:00 23:00 07:00 15:00 23:00 Intake Total 3213 ml 397 ml Output Total 550 ml 401 ml 600 ml Balance -550 ml 2812 ml -203 ml Tube Feeding 3213 ml 397 ml Output Urine Total 550 ml 400 ml 600 ml Stool Total 1 ml # Bowel Movements 1 1 1 Objective Remarks GENERAL: Well-developed well-nourished. In no acute distress. SKIN: Warm and dry. Sacral ulcer with clean dressing. HEENT: Normocephalic. Pupils equal and round. Mucous membranes pink and moist. Trach in place. CARDIOVASCULAR: Irregular but controlled rate and irregular rhythm. No murmur appreciated. RESPIRATORY: No accessory muscle use. Clear to auscultation. Breath sounds equal bilaterally. Rhonchi and crackles present. GASTROINTESTINAL: Abdomen soft, non-tender, nondistended. Bowel sounds x4. PEG in place. MUSCULOSKELETAL: No obvious deformities. No clubbing or cyanosis. No edema. NEUROLOGICAL: Sleeping. Locked in. Nonverbal. 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 Non verbal. Continue Keppra. Palliative care following. Chronic respiratory failure: Secondary to CVA, Status post tracheostomy. Continue pulmonary toilet and neb treatments as needed. Continue bronchodilators Xopenex, trach care with acetic acid, levsin prn, suctioning. A-fib: Continue rate control with Cardizem and metoprolol. Echocardiogram completed in November shows preserved EF. Coumadin discontinued secondary to bleeding from sacral wound. History of Non-Hodgkin lymphoma: s/p brain biopsy on December 13, by Neurosurgery, Dr. Marin. Pathology consistent with acute infarct without evidence of lymphoma. Oncology signed off with no active oncology issues. DM (diabetes mellitus): HgbA1c 7.0. Continue Levemir 35u daily. Continue sliding scale coverage. Monitor accuchecks and adjust the regimen as needed. Decubitus ulcer stage IV: Continue Rocephin indefinitely (on lactinex) per ID for suspected osteomyelitis unless a bone biopsy could be performed. Watch for further bleeding (off warfarin due to bleeding which appears to have improved). Continue dressing changes twice daily per wound care recommendations. GI/Nutrition: Continue Nepro at 55 cc/hr per dietitian recommendations. Free water. Potassium supplement. Palliative care following. Case management assisting with discharge disposition. Problem Qualifiers (1) DM (diabetes mellitus): Qualified Code: E11.9 - Type 2 diabetes mellitus without complications Floyd Vinson Jun 04, 2016 13:48
[2016-06-04] MEDS: PARoxetine HCL SUSP 20 MG/10 ML UDC PEG SCH (18:17)
[2016-06-04] MEDS: INSULIN DETEMIR 100 UNITS/ML VIAL SQ SCH (20:16)
[2016-06-05] VITALS (11 sets, daily range): BP systolic 105–126; BP diastolic 68–70; PULSE 67–81; RESP 18–22; TEMP 95.9–97.9; O2SAT 97–99
[2016-06-05] MEDS: FREE WATER TUBE SCH ×6 (00:04→21:32)
[2016-06-05] MEDS: ACETAMINOPHEN/HYDROcodone 325 MG/5 MG TAB PEG SCH ×4 (00:20→17:40)
[2016-06-05] MEDS: ACETIC ACID 0.25% SOLN 1000 ML IRR BTL IRRIGATION SCH ×3 (05:12→21:32)
[2016-06-05] MEDS: INSULIN ASPART SUPPLEMENTAL SCALE SQ SCH ×4 (07:00→21:32)
[2016-06-05] MEDS: RANITIDINE HCL SYRUP 150 MG/10 ML UDC PO SCH (09:31)
[2016-06-05] MEDS: METOPROLOL TARTRATE 50 MG TAB PO SCH ×2 (09:31→21:32)
[2016-06-05] MEDS: levETIRAcetam 500 MG/5 ML UDC TUBE SCH ×2 (09:31→21:34)
[2016-06-05] MEDS: LACTOBACILLUS ACIDOPHILUS TAB PEG SCH ×2 (09:31→21:32)
[2016-06-05] MEDS: DILTIAZEM HCL 90 MG TAB PEG SCH ×4 (09:31→21:32)
[2016-06-05] MEDS: ASPIRIN 325 MG TAB TUBE SCH (09:31)
[2016-06-05] MEDS: POTASSIUM CHLORIDE 25 MEQ EFFERVESCENT TAB TUBE SCH (09:31)
[2016-06-05] MEDS: NYSTATIN 100,000 U/GM PWD 15 GM BTL TOPICAL SCH ×2 (09:31→21:34)
[2016-06-05] MEDS: ARTIFICIAL TEARS OPTH OINT 3.5 APPLIC/3.5 GM TUBO EACH EYE SCH ×2 (09:32→21:32)
[2016-06-05] MEDS: cefTRIAXone INJ 2,000 MG in SODIUM CHLORIDE 0.9% INJ 100 ML IV SCH (12:02)
--- NOTE | 2016-06-05 13:03 | HHI.PR ---
Subjective Remarks Follow up CVA, sacral wound. Pt. seen eyes open, not following commands, occasional tracking noted. Appears comfortable. Family at bedside. Discuss with CHAPITO Skelton, no acute issues overnight. No fevers, chills, n/v/d. Stools regular. Family with no acute concerns. Objective Vitals Vital Signs Date Time Temp Pulse Resp B/P Pulse Ox O2 Delivery O2 Flow Rate FiO2 06/05/16 12:00 96.9 75 18 115/69 97 06/05/16 08:00 96.6 81 18 122/68 98 06/05/16 05:00 99 T-piece 28 06/05/16 04:10 97.9 74 19 126/70 98 06/05/16 00:33 97.1 67 20 117/69 98 06/04/16 21:03 75 06/04/16 20:00 96.5 69 19 134/86 97 06/04/16 19:05 T-Piece 6.00 28 06/04/16 18:21 T-piece 6.00 28 06/04/16 17:25 96.4 72 20 111/67 97 06/04/16 13:27 96.4 73 20 107/62 99 I/O 06/04/16 06/04/16 06/04/16 06/05/16 06/05/16 06/05/16 06:59 14:59 22:59 06:59 14:59 22:59 Intake Total 397 ml Output Total 600 ml 800 ml 1200 ml Balance -203 ml -800 ml -1200 ml Tube Feeding 397 ml Output Urine Total 600 ml 800 ml 1200 ml # Bowel Movements 1 2 1 1 Imaging Last Impressions Chest X-Ray 05/16/16 0000 Signed Impressions: Service Date/Time: April 17:35 - CONCLUSION: 1. Tracheostomy in satisfactory position. Mild basilar atelectasis. Durga Dotson MD Abdomen/Pelvis CT 04/12/16 0000 Signed Impressions: Service Date/Time: Tuesday, April 12, 2016 20:52 - CONCLUSION: 1. 6.4 cm necrotic mass or abscess in the soft tissues posteriorly just below the sacrum associated with some bony destructive change of the lower most sacrum and coccyx with inflammatory changes extending into the ischiorectal fossa and into the presacral retroperitoneum predominantly on the left side. There is associated fairly marked mural thickening of the anal verge and rectum. 2. There is gastrostomy and Arevalo catheter present. Stable abdominal aortic aneurysm. Durga Dotson MD Head Magnetic Resonance Angiography 03/05/16 0000 Signed Impressions: Service Date/Time: Saturday, March 05, 2016 09:26 - CONCLUSION: Persistent high-grade subtotal occlusive stenotic lesions in the distal right vertebral artery and proximal basilar artery with significant improvement in flow and recanalization following initial presentation of thrombosis. Stable interstitial circulation without significant stenosis. 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 There is decreasing restricted diffusion and increasing loss of volume characteristic of a subacute to chronic infarct. No evidence of acute infarct, acute hemorrhage mass or edema. Ernesto Kulkarni MD Head CT 01/16/16 0000 Signed Impressions: Service Date/Time: Saturday, January 16, 2016 10:51 - CONCLUSION: No extensive low density in the brainstem colin more prominent in the right the left extending into the right middle cerebellar peduncle consistent with brainstem infarct nonhemorrhagic acute Wellington West MD Abdomen X-Ray 01/14/16 0000 Signed Impressions: Service Date/Time: Thursday, January 14, 2016 10:19 - CONCLUSION: Moderate stool; otherwise, negative. 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 No evidence of carotid stenosis. Glen Zamora MD Head/Brain Mag Res Venography 12/22/15 0000 Signed Impressions: Service Date/Time: Tuesday, December 22, 2015 09:22 - CONCLUSION: Normal MRV. Jonel Jones Jr., MD Objective Remarks GENERAL: Well-developed well-nourished. In no acute distress. SKIN: Warm and dry. Sacral ulcer with clean dressing. Off VAC dsg, now just betadine and dry dsg. HEENT: Normocephalic. Pupils equal and round. Mucous membranes pink and moist. Trach in place. Min secretions white. CARDIOVASCULAR: Irregular but controlled rate and irregular rhythm. No murmur appreciated. RESPIRATORY: No accessory muscle use. Breath sounds equal bilaterally. Trach in place. GASTROINTESTINAL: Abdomen soft, non-tender, nondistended. Bowel sounds x4. PEG in place. Tolerating TF. : Arevalo in place, draining clear skip urine. MUSCULOSKELETAL: No obvious deformities. No clubbing or cyanosis. Trace edema of extremities. Bilat foot drop, flaccid upper ext. NEUROLOGICAL: Eyes opening, occasional tracking. Nonverbal. No spontaneous movement of extremities noted. Increase RR when stimulated. Procedures 01/02/16 PEG placement 01/02/16 tracheostomy Urinary Catheter: Yes Arevalo insert reason: Stage III/IV Press Ulcer Vascular Central Line Catheter: No A/P Problem List: (1) CVA (cerebral vascular accident) ICD Code: I63.9 Status: Acute (2) A-fib ICD Code: I48.91 Status: Chronic (3) DM (diabetes mellitus) ICD Code: E11.9 Status: Chronic Assessment and Plan 60-year-old male with past medical history of paroxysmal atrial fibrillation, hypertension, stage III a non-Hodgkin's lymphoma status post a chemotherapy last year. He came to the hospital with altered mental status, facial droop. 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 Non verbal. Continue Keppra. Palliative care following. Chronic respiratory failure: Secondary to CVA, Status post tracheostomy. Continue pulmonary toilet and neb treatments as needed. Continue bronchodilators Xopenex, trach care, levsin prn, suctioning. A-fib: Continue rate control with Cardizem and metoprolol. Echocardiogram completed in November shows preserved EF. Coumadin discontinued secondary to bleeding. Continue with ASA. History of Non-Hodgkin lymphoma: s/p brain biopsy on December 13, by Neurosurgery, Dr. Marin. Pathology consistent with acute infarct without evidence of lymphoma. Oncology signed off with no active oncology issues. DM (diabetes mellitus): HgbA1c 7.0. Continue Levemir 35u daily. Continue sliding scale coverage. Monitor accuchecks and adjust the regimen as needed. BG trend 120's-170s Decubitus ulcer stage IV: Continue Rocephin indefinitely (on lactinex) per ID until OM is ruled out with bone biopsy and watch for further bleeding (off warfarin due to bleeding which appears to have resolved). Continue dressing changes twice daily per wound care recommendations. Continue pressure relief measures, mattress, Turning and positioning. GI/Nutrition: Continue Nepro at 55 cc/hr per dietitian recommendations. Free water flushes. Potassium supplement. Discharge Planning Needs placement. Problem Qualifiers (1) DM (diabetes mellitus): Qualified Code: E11.9 - Type 2 diabetes mellitus without complications Thomas Buck MD Jun 05, 2016 13:03
[2016-06-05] MEDS: PARoxetine HCL SUSP 20 MG/10 ML UDC PEG SCH (17:39)
[2016-06-05] MEDS: INSULIN DETEMIR 100 UNITS/ML VIAL SQ SCH (21:34)
[2016-06-06] VITALS (8 sets, daily range): BP systolic 113–142; BP diastolic 67–82; PULSE 69–89; RESP 18–24; TEMP 96–98.4; O2SAT 94–99
[2016-06-06] MEDS: ACETAMINOPHEN/HYDROcodone 325 MG/5 MG TAB PEG SCH ×4 (00:32→18:10)
[2016-06-06] MEDS: FREE WATER TUBE SCH ×6 (00:32→20:00)
[2016-06-06] MEDS: DILTIAZEM HCL 90 MG TAB PEG SCH ×5 (00:35→21:34)
[2016-06-06] MEDS: METOPROLOL TARTRATE 50 MG TAB PO SCH ×3 (00:35→21:34)
[2016-06-06] MEDS: ACETIC ACID 0.25% SOLN 1000 ML IRR BTL IRRIGATION SCH ×3 (05:55→21:38)
[2016-06-06] MEDS: INSULIN ASPART SUPPLEMENTAL SCALE SQ SCH ×4 (05:55→21:35)
[2016-06-06] MEDS: RANITIDINE HCL SYRUP 150 MG/10 ML UDC PO SCH (09:17)
[2016-06-06] MEDS: ASPIRIN 325 MG TAB TUBE SCH (09:17)
[2016-06-06] MEDS: LACTOBACILLUS ACIDOPHILUS TAB PEG SCH ×2 (09:17→21:34)
[2016-06-06] MEDS: levETIRAcetam 500 MG/5 ML UDC TUBE SCH ×2 (09:17→21:34)
[2016-06-06] MEDS: ARTIFICIAL TEARS OPTH OINT 3.5 APPLIC/3.5 GM TUBO EACH EYE SCH ×2 (09:18→21:37)
[2016-06-06] MEDS: NYSTATIN 100,000 U/GM PWD 15 GM BTL TOPICAL SCH ×2 (09:18→21:37)
[2016-06-06] MEDS: POTASSIUM CHLORIDE 25 MEQ EFFERVESCENT TAB TUBE SCH (09:18)
[2016-06-06] MEDS: cefTRIAXone INJ 2,000 MG in SODIUM CHLORIDE 0.9% INJ 100 ML IV SCH (11:51)
--- NOTE | 2016-06-06 12:53 | HHI.PR ---
Subjective Remarks Follow-up encephalopathy. No new changes. Discussed with RN. Family refusing patient to be discharged to SNF Objective Vitals Vital Signs Date Time Temp Pulse Resp B/P Pulse Ox O2 Delivery O2 Flow Rate FiO2 06/06/16 10:17 75 06/06/16 08:15 97 T-Piece 6.00 28 Humidified 06/06/16 08:00 97.1 79 20 130/82 99 06/06/16 04:00 98.1 72 22 129/72 98 06/06/16 00:00 98.4 89 24 142/69 97 06/05/16 21:15 75 06/05/16 20:00 97.9 80 22 105/69 98 06/05/16 18:08 98 T-piece 6.00 06/05/16 18:08 98 T-piece 6.00 28 06/05/16 16:00 95.9 71 18 109/70 98 I/O 06/05/16 06/05/16 06/05/16 06/06/16 06/06/16 06/06/16 06:59 14:59 22:59 06:59 14:59 22:59 Intake Total 2191 ml Output Total 500 ml 400 ml 1200 ml 250 ml Balance -500 ml -400 ml -1200 ml 1941 ml Tube Feeding 2191 ml Output Urine Total 500 ml 400 ml 1200 ml 250 ml # Bowel Movements 1 0 0 Objective Remarks GENERAL: Well-developed well-nourished. In no acute distress. SKIN: Warm and dry. Sacral ulcer with clean dressing. Off VAC dsg, now just betadine and dry dsg. HEENT: Normocephalic. Pupils equal and round. Mucous membranes pink and moist. Trach in place. Min secretions white. CARDIOVASCULAR: Irregular but controlled rate and irregular rhythm. No murmur appreciated. RESPIRATORY: No accessory muscle use. Breath sounds equal bilaterally. Trach in place. GASTROINTESTINAL: Abdomen soft, non-tender, nondistended. Bowel sounds x4. PEG in place. Tolerating TF. : Arevalo in place, draining clear skip urine. MUSCULOSKELETAL: No obvious deformities. No clubbing or cyanosis. Trace edema of extremities. Bilat foot drop, flaccid upper ext. NEUROLOGICAL: Eyes opening, occasional tracking. Nonverbal. No spontaneous movement of extremities noted. Increase RR when stimulated. Procedures 6/14/16 PEG placement 01/02/16 tracheostomy A/P Problem List: (1) CVA (cerebral vascular accident) ICD Code: I63.9 Status: Acute (2) A-fib ICD Code: I48.91 Status: Chronic (3) DM (diabetes mellitus) ICD Code: E11.9 Status: Chronic Assessment and Plan 60-year-old male with past medical history of paroxysmal atrial fibrillation, hypertension, stage III a non-Hodgkin's lymphoma status post a chemotherapy last year. He came to the hospital with altered mental status, facial droop. 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 Non verbal. Continue Keppra. Palliative care following. Chronic respiratory failure: Secondary to CVA, Status post tracheostomy. Continue pulmonary toilet and neb treatments as needed. Continue bronchodilators Xopenex, trach care, levsin prn, suctioning. A-fib: Continue rate control with Cardizem and metoprolol. Echocardiogram completed in November shows preserved EF. Coumadin discontinued secondary to bleeding. Continue with ASA. History of Non-Hodgkin lymphoma: s/p brain biopsy on December 13, by Neurosurgery, Dr. Marin. Pathology consistent with acute infarct without evidence of lymphoma. Oncology signed off with no active oncology issues. DM (diabetes mellitus): HgbA1c 7.0. Continue Levemir 35u daily. Continue sliding scale coverage. Monitor accuchecks and adjust the regimen as needed. BG trend 120's-170s Decubitus ulcer stage IV: Continue Rocephin indefinitely (on lactinex) per ID until OM is ruled out with bone biopsy and watch for further bleeding (off warfarin due to bleeding which appears to have resolved). Continue dressing changes twice daily per wound care recommendations. Continue pressure relief measures, mattress, Turning and positioning. GI/Nutrition: Continue Nepro at 55 cc/hr per dietitian recommendations. Free water flushes. Potassium supplement. Discharge Planning Needs placement if family agrees. Problem Qualifiers (1) DM (diabetes mellitus): Qualified Code: E11.9 - Type 2 diabetes mellitus without complications Thomas Buck MD Jun 06, 2016 12:53
[2016-06-06] MEDS: PARoxetine HCL SUSP 20 MG/10 ML UDC PEG SCH (18:09)
[2016-06-06] MEDS: INSULIN DETEMIR 100 UNITS/ML VIAL SQ SCH (21:35)
[2016-06-07] VITALS (10 sets, daily range): BP systolic 114–138; BP diastolic 65–90; PULSE 64–81; RESP 16–20; TEMP 96.7–97.8; O2SAT 91–100
[2016-06-07] MEDS: ACETAMINOPHEN/HYDROcodone 325 MG/5 MG TAB PEG SCH ×4 (01:26→18:24)
[2016-06-07] MEDS: FREE WATER TUBE SCH ×6 (04:00→20:00)
[2016-06-07] MEDS: ACETIC ACID 0.25% SOLN 1000 ML IRR BTL IRRIGATION SCH ×3 (05:26→22:46)
[2016-06-07] MEDS: INSULIN ASPART SUPPLEMENTAL SCALE SQ SCH (06:24)
[2016-06-07 07:13] LABS: EOSINOPHIL # 0.1 TH/MM3 (0-0.4); EOSINOPHIL % 3.1 % (0.0-4.0); HEMATOCRIT 29.9 % (39.0-51.0); LYMPH % 21.2 % (9.0-44.0); MEAN CELL VOLUME 74.1 FL (80.0-100.0); MEAN CORPUSCULAR HEMOGLOBIN 23.3 PG (27.0-34.0); MEAN CORPUSCULAR HGB CONC 31.5 % (32.0-36.0); MONO % 7.4 % (0.0-8.0); NEUT % 67.3 % (16.0-70.0); PLATELET COUNT 217 TH/MM3 (150-450); RED BLOOD COUNT 4.04 MIL/MM3 (4.50-5.90); RED CELL DISTRIBUTION WIDTH 20.4 % (11.6-17.2); WHITE BLOOD COUNT 4.5 TH/MM3 (4.0-11.0)
[2016-06-07 07:20] LABS: HEMO FLAGS AUTO DIFF
[2016-06-07 07:34] LABS: ALKALINE PHOSPHATASE 67 U/L (45-117); ALT (GPT) 13 U/L (12-78); ANION GAP 8 MEQ/L (5-15); AST (GOT) 10 U/L (15-37); BICARBONATE 29.4 MEQ/L (21.0-32.0); BLOOD UREA NITROGEN 12 MG/DL (7-18); CHLORIDE 101 MEQ/L (98-107); GLOMERULAR FILTRATION RATE 135 ML/MIN (>89); MAGNESIUM 1.8 MG/DL (1.5-2.5); POTASSIUM 3.8 MEQ/L (3.5-5.1); SODIUM (NA) 138 MEQ/L (136-145); TOTAL BILIRUBIN ADULT 0.3 MG/DL (0.2-1.0)
[2016-06-07 08:22] LABS: PLATELET ESTIMATE SMEAR NORMAL (NORMAL); PLATELET MORPHOLOGY NORMAL (NORMAL); SCAN/DIFF AUTO DIFF CONFIRMED
[2016-06-07] MEDS: RANITIDINE HCL SYRUP 150 MG/10 ML UDC PO SCH (09:39)
[2016-06-07] MEDS: DILTIAZEM HCL 90 MG TAB PEG SCH ×4 (09:39→22:45)
[2016-06-07] MEDS: POTASSIUM CHLORIDE 25 MEQ EFFERVESCENT TAB TUBE SCH (09:39)
[2016-06-07] MEDS: ASPIRIN 325 MG TAB TUBE SCH (09:39)
[2016-06-07] MEDS: levETIRAcetam 500 MG/5 ML UDC TUBE SCH ×2 (09:39→22:44)
[2016-06-07] MEDS: METOPROLOL TARTRATE 50 MG TAB PO SCH ×2 (09:39→22:45)
[2016-06-07] MEDS: NYSTATIN 100,000 U/GM PWD 15 GM BTL TOPICAL SCH ×2 (09:46→22:46)
[2016-06-07] MEDS: ARTIFICIAL TEARS OPTH OINT 3.5 APPLIC/3.5 GM TUBO EACH EYE SCH ×2 (09:46→21:00)
--- NOTE | 2016-06-07 12:31 | HHI.PR ---
Subjective Remarks Follow-up encephalopathy. No new changes. 5 episodes of loose stools yesterday but per RN very minimal amount. No stools today. Tolerating tube feeding. Family at bedside and decided on chemical DVT prophylaxis Objective Vitals Vital Signs Date Time Temp Pulse Resp B/P Pulse Ox O2 Delivery O2 Flow Rate FiO2 06/07/16 10:51 77 06/07/16 08:00 97.3 80 18 114/77 91 06/07/16 06:04 100 T-Piece 6.00 28 Humidified 06/07/16 04:00 97.7 75 20 123/69 98 06/07/16 02:36 18 06/07/16 00:00 97.6 64 20 119/65 97 06/06/16 21:40 94 T-piece 28 06/06/16 20:00 97.2 77 20 129/76 97 06/06/16 16:00 96.0 69 18 113/67 97 I/O 06/06/16 06/06/16 06/06/16 06/07/16 06/07/16 06/07/16 07:00 15:00 23:00 07:00 15:00 23:00 Intake Total 2296 ml 600 ml Output Total 1200 ml 800 ml 400 ml Balance -1200 ml 1496 ml 200 ml IV Total 105 ml Tube Feeding 2191 ml Other 600 ml Output Urine Total 1200 ml 800 ml 400 ml # Bowel Movements 0 4 1 Result Diagram: 06/07/1661706/07/16617 Objective Remarks GENERAL: Well-developed well-nourished. In no acute distress. No signs of dehydration SKIN: Warm and dry. Sacral ulcer with clean dressing. Off VAC dsg, now just betadine and dry dsg. HEENT: Normocephalic. Pupils equal and round. Mucous membranes pink and moist. Trach in place. Min secretions white. CARDIOVASCULAR: Irregular but controlled rate and irregular rhythm. No murmur appreciated. RESPIRATORY: No accessory muscle use. Breath sounds equal bilaterally. Trach in place. GASTROINTESTINAL: Abdomen soft, non-tender, nondistended. Bowel sounds x4. PEG in place. Tolerating TF. : Arevalo in place, draining clear skip urine. MUSCULOSKELETAL: No obvious deformities. No clubbing or cyanosis. Trace edema of extremities. Bilat foot drop, flaccid upper ext. NEUROLOGICAL: Eyes opening, occasional tracking. Nonverbal. No spontaneous movement of extremities noted. Increase RR when stimulated. Procedures 01/02/16 PEG placement 01/02/16 tracheostomy A/P Problem List: (1) CVA (cerebral vascular accident) ICD Code: I63.9 Status: Acute (2) A-fib ICD Code: I48.91 Status: Chronic (3) DM (diabetes mellitus) ICD Code: E11.9 Status: Chronic Assessment and Plan 60-year-old male with past medical history of paroxysmal atrial fibrillation, hypertension, stage III a non-Hodgkin's lymphoma status post a chemotherapy last year. He came to the hospital with altered mental status, facial droop. 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 Non verbal. Continue Keppra. Palliative care following. Chronic respiratory failure: Secondary to CVA, Status post tracheostomy. Continue pulmonary toilet and neb treatments as needed. Continue bronchodilators Xopenex, trach care, levsin prn, suctioning. A-fib: Continue rate control with Cardizem and metoprolol. Echocardiogram completed in November shows preserved EF. Coumadin discontinued secondary to bleeding. Continue with ASA. Family and decided on restarting anticoagulation aware of CVA risks. Consider Lovenox History of Non-Hodgkin lymphoma: s/p brain biopsy on December 13, by Neurosurgery, Dr. Marin. Pathology consistent with acute infarct without evidence of lymphoma. Oncology signed off with no active oncology issues. DM (diabetes mellitus): HgbA1c 7.0. Continue Levemir 35u daily. Continue sliding scale coverage. Monitor accuchecks and adjust the regimen as needed. Decrease frequency to once a day fingersticks have been stable Decubitus ulcer stage IV: Continue Rocephin indefinitely (on lactinex) per ID until OM is ruled out with bone biopsy and watch for further bleeding (off warfarin due to bleeding which appears to have resolved). Continue dressing changes twice daily per wound care recommendations. Continue pressure relief measures, mattress, Turning and positioning. GI/Nutrition: Continue Nepro at 55 cc/hr per dietitian recommendations. Free water flushes. Potassium supplement. Discharge Planning Needs placement if family agrees. Problem Qualifiers (1) DM (diabetes mellitus): Qualified Code: E11.9 - Type 2 diabetes mellitus without complications Thomas Buck MD Jun 07, 2016 12:31
[2016-06-07] MEDS: cefTRIAXone INJ 2,000 MG in SODIUM CHLORIDE 0.9% INJ 100 ML IV SCH (12:49)
[2016-06-07] MEDS: LACTOBACILLUS ACIDOPHILUS TAB PEG SCH ×2 (12:50→18:24)
[2016-06-07] MEDS: PARoxetine HCL SUSP 20 MG/10 ML UDC PEG SCH (18:25)
[2016-06-07] MEDS: INSULIN DETEMIR 100 UNITS/ML VIAL SQ SCH (22:44)
[2016-06-08] VITALS (11 sets, daily range): BP systolic 108–140; BP diastolic 70–82; PULSE 69–91; RESP 16–18; TEMP 96.6–97.8; O2SAT 95–99
[2016-06-08] MEDS: ACETAMINOPHEN/HYDROcodone 325 MG/5 MG TAB PEG SCH ×3 (00:52→17:49)
[2016-06-08] MEDS: FREE WATER TUBE SCH ×5 (04:00→20:00)
[2016-06-08] MEDS: ACETIC ACID 0.25% SOLN 1000 ML IRR BTL IRRIGATION SCH ×2 (06:40→22:00)
[2016-06-08] MEDS: METOPROLOL TARTRATE 50 MG TAB PO SCH ×2 (09:00→21:26)
[2016-06-08] MEDS: ARTIFICIAL TEARS OPTH OINT 3.5 APPLIC/3.5 GM TUBO EACH EYE SCH ×2 (09:00→21:30)
[2016-06-08] MEDS: DILTIAZEM HCL 90 MG TAB PEG SCH ×4 (09:00→21:26)
[2016-06-08] MEDS: NYSTATIN 100,000 U/GM PWD 15 GM BTL TOPICAL SCH ×2 (09:00→21:37)
[2016-06-08] MEDS: RANITIDINE HCL SYRUP 150 MG/10 ML UDC PO SCH (09:17)
[2016-06-08] MEDS: POTASSIUM CHLORIDE 25 MEQ EFFERVESCENT TAB TUBE SCH (09:17)
[2016-06-08] MEDS: ASPIRIN 325 MG TAB TUBE SCH (09:18)
[2016-06-08] MEDS: LACTOBACILLUS ACIDOPHILUS TAB PEG SCH ×2 (09:18→13:00)
[2016-06-08] MEDS: levETIRAcetam 500 MG/5 ML UDC TUBE SCH ×2 (09:18→21:25)
--- NOTE | 2016-06-08 11:08 | HHI.PR ---
Subjective Remarks Follow-up encephalopathy. No new changes. Ex- and [id number] who is a pharmacist arguing if pharmacological prophylaxis needs to be started. They will contact the children re this matter Vinayak RN Objective Vitals Vital Signs Date Time Temp Pulse Resp B/P Pulse Ox O2 Delivery O2 Flow Rate FiO2 06/08/16 09:28 98 T-piece 6.00 28 06/08/16 09:28 98 T-piece 6.00 28 06/08/16 08:00 97.8 74 18 108/70 96 06/08/16 06:29 95 T-piece 28 06/08/16 04:00 96.6 74 16 130/74 97 06/08/16 01:52 19 06/08/16 00:00 96.8 69 16 131/75 99 06/07/16 22:40 81 06/07/16 20:39 100 T-Piece 6.00 28 Humidified 06/07/16 20:00 97.8 75 16 119/70 98 06/07/16 17:56 T-piece 6.00 28 06/07/16 16:30 96.7 78 18 126/77 97 06/07/16 12:29 99 T-piece 6.00 28 06/07/16 12:00 96.7 74 18 138/90 100 I/O 06/07/16 06/07/16 06/07/16 06/08/16 06/08/16 06/08/16 07:00 15:00 23:00 07:00 15:00 23:00 Intake Total 400 ml 200 ml Output Total 300 ml 900 ml 360 ml Balance 100 ml -700 ml -360 ml Other 400 ml 200 ml Output Urine Total 300 ml 900 ml 360 ml # Bowel Movements 3 Result Diagram: 06/07/1661706/07/1618 Objective Remarks GENERAL: Well-developed well-nourished. In no acute distress. No signs of dehydration SKIN: Warm and dry. Sacral ulcer with clean dressing. Off VAC dsg, now just betadine and dry dsg. HEENT: Normocephalic. Pupils equal and round. Mucous membranes pink and moist. Trach in place. Min secretions white. CARDIOVASCULAR: Irregular but controlled rate and irregular rhythm. No murmur appreciated. RESPIRATORY: No accessory muscle use. Breath sounds equal bilaterally. Trach in place. GASTROINTESTINAL: Abdomen soft, non-tender, nondistended. Bowel sounds x4. PEG in place. Tolerating TF. : Arevalo in place, draining clear skip urine. MUSCULOSKELETAL: No obvious deformities. No clubbing or cyanosis. Trace edema of extremities. Bilat foot drop, flaccid upper ext. NEUROLOGICAL: Eyes opening, occasional tracking. Nonverbal. No spontaneous movement of extremities noted. Increase RR when stimulated. Procedures 01/02/16 PEG placement 01/02/16 tracheostomy A/P Problem List: (1) CVA (cerebral vascular accident) ICD Code: I63.9 Status: Acute (2) A-fib ICD Code: I48.91 Status: Chronic (3) DM (diabetes mellitus) ICD Code: E11.9 Status: Chronic Assessment and Plan 60-year-old male with past medical history of paroxysmal atrial fibrillation, hypertension, stage III a non-Hodgkin's lymphoma status post a chemotherapy last year. He came to the hospital with altered mental status, facial droop. 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 Non verbal. Continue Keppra. Palliative care following. Chronic respiratory failure: Secondary to CVA, Status post tracheostomy. Continue pulmonary toilet and neb treatments as needed. Continue bronchodilators Xopenex, trach care, levsin prn, suctioning. A-fib: Continue rate control with Cardizem and metoprolol. Echocardiogram completed in November shows preserved EF. Coumadin discontinued secondary to bleeding. Continue with ASA. Family and decided on restarting anticoagulation aware of CVA risks. Consider Lovenox or heparin(brother's preference) History of Non-Hodgkin lymphoma: s/p brain biopsy on December 13, by Neurosurgery, Dr. Marin. Pathology consistent with acute infarct without evidence of lymphoma. Oncology signed off with no active oncology issues. DM (diabetes mellitus): HgbA1c 7.0. Continue Levemir 35u daily. Continue sliding scale coverage. Monitor accuchecks and adjust the regimen as needed. Decrease frequency to once a day fingersticks have been stable Decubitus ulcer stage IV: Continue Rocephin indefinitely (on lactinex) per ID until OM is ruled out with bone biopsy and watch for further bleeding (off warfarin due to bleeding which appears to have resolved). Continue dressing changes twice daily per wound care recommendations. Continue pressure relief measures, mattress, Turning and positioning. GI/Nutrition: Continue Nepro at 55 cc/hr per dietitian recommendations. Free water flushes. Potassium supplement. Discharge Planning Needs placement if family agrees. Problem Qualifiers (1) DM (diabetes mellitus): Qualified Code: E11.9 - Type 2 diabetes mellitus without complications Thomas Buck MD Jun 08, 2016 11:08
[2016-06-08] MEDS: PARoxetine HCL SUSP 20 MG/10 ML UDC PEG SCH (18:53)
[2016-06-08] MEDS: INSULIN DETEMIR 100 UNITS/ML VIAL SQ SCH (21:25)
[2016-06-09] VITALS (7 sets, daily range): BP systolic 122–136; BP diastolic 72–84; PULSE 72–110; RESP 18–20; TEMP 96.8–97.6; O2SAT 96–98
[2016-06-09] MEDS: FREE WATER TUBE SCH ×5 (04:00→20:00)
[2016-06-09] MEDS: ACETIC ACID 0.25% SOLN 1000 ML IRR BTL IRRIGATION SCH ×3 (06:45→22:00)
[2016-06-09] MEDS: ACETAMINOPHEN/HYDROcodone 325 MG/5 MG TAB PEG SCH ×5 (06:45→23:57)
[2016-06-09] MEDS: ASPIRIN 325 MG TAB TUBE SCH (08:07)
[2016-06-09] MEDS: METOPROLOL TARTRATE 50 MG TAB PO SCH ×2 (08:07→21:35)
[2016-06-09] MEDS: POTASSIUM CHLORIDE 25 MEQ EFFERVESCENT TAB TUBE SCH (08:07)
[2016-06-09] MEDS: DILTIAZEM HCL 90 MG TAB PEG SCH ×2 (08:07→21:34)
[2016-06-09] MEDS: LACTOBACILLUS ACIDOPHILUS TAB PEG SCH ×2 (08:09→12:36)
[2016-06-09] MEDS: NYSTATIN 100,000 U/GM PWD 15 GM BTL TOPICAL SCH ×2 (09:00→21:35)
[2016-06-09] MEDS: levETIRAcetam 500 MG/5 ML UDC TUBE SCH ×2 (09:00→21:35)
[2016-06-09] MEDS: RANITIDINE HCL SYRUP 150 MG/10 ML UDC PO SCH (09:00)
[2016-06-09] MEDS: ARTIFICIAL TEARS OPTH OINT 3.5 APPLIC/3.5 GM TUBO EACH EYE SCH ×2 (09:00→21:35)
--- NOTE | 2016-06-09 10:58 | HHI.PR ---
Subjective Remarks F/u encephalopathy. Seen family and RN who was changing decub dressing. Again long discussion re anticoagulation. Awaiting call from one of the children to give consent to start anticoagulation Objective Vitals Vital Signs Date Time Temp Pulse Resp B/P Pulse Ox O2 Delivery O2 Flow Rate FiO2 06/09/16 08:00 97.5 87 20 136/72 98 06/09/16 04:00 97.0 110 20 122/84 98 06/09/16 04:00 97.0 100 20 136/74 97 06/08/16 22:43 96 T-piece 6.00 28 06/08/16 22:43 96 T-piece 6.00 28 06/08/16 19:45 91 06/08/16 19:00 97.6 81 18 127/72 97 06/08/16 16:00 96.7 85 17 140/82 96 06/08/16 12:00 97.4 84 18 137/79 97 I/O 06/08/16 06/08/16 06/08/16 06/09/16 06/09/16 06/09/16 07:00 15:00 23:00 07:00 15:00 23:00 Output Total 360 ml 1800 ml Balance -360 ml -1800 ml Output Urine Total 360 ml 1800 ml # Bowel Movements 1 Result Diagram: 06/07/1661706/07/16617 Objective Remarks GENERAL: Well-developed well-nourished. In no acute distress. No signs of dehydration SKIN: Warm and dry. Sacral ulcer with clean dressing. Off VAC dsg, now just betadine and dry dsg. HEENT: Normocephalic. Pupils equal and round. Mucous membranes pink and moist. Trach in place. Min secretions white. CARDIOVASCULAR: Irregular but controlled rate and irregular rhythm. No murmur appreciated. RESPIRATORY: No accessory muscle use. Breath sounds equal bilaterally. Trach in place. GASTROINTESTINAL: Abdomen soft, non-tender, nondistended. Bowel sounds x4. PEG in place. Tolerating TF. : Arevalo in place, draining clear skip urine. MUSCULOSKELETAL: No obvious deformities. No clubbing or cyanosis. Trace edema of extremities. Bilat foot drop, flaccid upper ext. NEUROLOGICAL: Eyes opening, occasional tracking. Nonverbal. No spontaneous movement of extremities noted. Procedures 01/02/16 PEG placement 01/02/16 tracheostomy A/P Problem List: (1) CVA (cerebral vascular accident) ICD Code: I63.9 Status: Acute (2) A-fib ICD Code: I48.91 Status: Chronic (3) DM (diabetes mellitus) ICD Code: E11.9 Status: Chronic Assessment and Plan 60-year-old male with past medical history of paroxysmal atrial fibrillation, hypertension, stage III a non-Hodgkin's lymphoma status post a chemotherapy last year. He came to the hospital with altered mental status, facial droop. 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 Non verbal. Continue Keppra. Palliative care following. Chronic respiratory failure: Secondary to CVA, Status post tracheostomy. Continue pulmonary toilet and neb treatments as needed. Continue bronchodilators Xopenex, trach care, levsin prn, suctioning. A-fib: Continue rate control with Cardizem and metoprolol. Echocardiogram completed in November shows preserved EF. Coumadin discontinued secondary to bleeding. Continue with ASA. Family undecided on restarting anticoagulation aware of CVA risks. Consider Lovenox or heparin(brother's preference) for now and then restart Coumadin if no further bleeding while on Lovenox or heparin History of Non-Hodgkin lymphoma: s/p brain biopsy on December 13, by Neurosurgery, Dr. Marin. Pathology consistent with acute infarct without evidence of lymphoma. Oncology signed off with no active oncology issues. DM (diabetes mellitus): HgbA1c 7.0. Continue Levemir 35u daily. Continue sliding scale coverage. Monitor accuchecks and adjust the regimen as needed. Decrease frequency to once a day fingersticks have been stable Decubitus ulcer stage IV: Continue Rocephin indefinitely (on lactinex) per ID until OM is ruled out with bone biopsy and watch for further bleeding (off warfarin due to bleeding which appears to have resolved). Continue dressing changes twice daily per wound care recommendations. Continue pressure relief measures, mattress, Turning and positioning. GI/Nutrition: Continue Nepro at 55 cc/hr per dietitian recommendations. Free water flushes. Potassium supplement. Discharge Planning Needs placement if family agrees. Problem Qualifiers (1) DM (diabetes mellitus): Qualified Code: E11.9 - Type 2 diabetes mellitus without complications Thomas Buck MD Jun 09, 2016 10:58
[2016-06-09] MEDS: cefTRIAXone INJ 2,000 MG in SODIUM CHLORIDE 0.9% INJ 100 ML IV SCH (12:36)
[2016-06-09] MEDS: PARoxetine HCL SUSP 20 MG/10 ML UDC PEG SCH (18:20)
[2016-06-09] MEDS: INSULIN DETEMIR 100 UNITS/ML VIAL SQ SCH (21:35)
[2016-06-10] VITALS (8 sets, daily range): BP systolic 116–150; BP diastolic 67–80; PULSE 74–84; RESP 18–20; TEMP 96.9–98.9; O2SAT 96–99
[2016-06-10] MEDS: FREE WATER TUBE SCH ×5 (08:00→20:00)
[2016-06-10] MEDS: ASPIRIN 325 MG TAB TUBE SCH (09:00)
[2016-06-10] MEDS: ARTIFICIAL TEARS OPTH OINT 3.5 APPLIC/3.5 GM TUBO EACH EYE SCH ×2 (09:00→20:53)
[2016-06-10] MEDS: NYSTATIN 100,000 U/GM PWD 15 GM BTL TOPICAL SCH ×2 (09:00→20:53)
[2016-06-10] MEDS: METOPROLOL TARTRATE 50 MG TAB PO SCH ×2 (09:12→20:50)
[2016-06-10] MEDS: DILTIAZEM HCL 90 MG TAB PEG SCH ×5 (09:12→20:50)
[2016-06-10] MEDS: levETIRAcetam 500 MG/5 ML UDC TUBE SCH ×2 (09:12→20:51)
[2016-06-10] MEDS: RANITIDINE HCL SYRUP 150 MG/10 ML UDC PO SCH (09:15)
[2016-06-10] MEDS: POTASSIUM CHLORIDE 25 MEQ EFFERVESCENT TAB TUBE SCH (09:15)
[2016-06-10] MEDS: LACTOBACILLUS ACIDOPHILUS TAB PEG SCH ×3 (09:16→17:29)
[2016-06-10] MEDS: cefTRIAXone INJ 2,000 MG in SODIUM CHLORIDE 0.9% INJ 100 ML IV SCH ×2 (12:00→13:08)
[2016-06-10] MEDS: ACETIC ACID 0.25% SOLN 1000 ML IRR BTL IRRIGATION SCH ×2 (13:08→20:52)
[2016-06-10] MEDS: ACETAMINOPHEN/HYDROcodone 325 MG/5 MG TAB PEG SCH ×2 (13:08→17:30)
--- NOTE | 2016-06-10 13:56 | HHI.PR ---
Subjective Remarks Follow-up encephalopathy. Seen with family. Discussed with RN. Intermittently following simple commands closes and opens eyes as was looking to left and right upon commands. Discussed with daughter Xiomara who agrees with anticoagulation with subcutaneous heparin. If no bleeding, we'll consider restarting Coumadin Objective Vitals Vital Signs Date Time Temp Pulse Resp B/P Pulse Ox O2 Delivery O2 Flow Rate FiO2 06/10/16 12:28 98 T-piece 6.00 28 06/10/16 08:00 97.4 79 20 124/72 97 06/10/16 07:31 98.9 75 20 150/77 99 06/10/16 00:00 97.0 84 18 139/78 96 06/09/16 22:27 96 T-piece 28 06/09/16 22:27 96 T-piece 6.00 28 06/09/16 20:00 97.6 79 18 127/77 96 06/09/16 19:35 Trach Collar 6.00 28 I/O 06/09/16 06/09/16 06/09/16 06/10/16 06/10/16 06/10/16 07:00 15:00 23:00 07:00 15:00 23:00 Output Total 1800 ml 500 ml 1800 ml Balance -1800 ml -500 ml -1800 ml Output Urine Total 1800 ml 500 ml 1800 ml # Bowel Movements 1 1 3 Result Diagram: 06/07/1661706/07/16617 Objective Remarks GENERAL: Well-developed well-nourished. In no acute distress. No signs of dehydration SKIN: Warm and dry. Sacral ulcer with clean dressing. Off VAC dsg, now just betadine and dry dsg. HEENT: Normocephalic. Pupils equal and round. Mucous membranes pink and moist. Trach in place. Min secretions white. CARDIOVASCULAR: Irregular but controlled rate and irregular rhythm. No murmur appreciated. RESPIRATORY: No accessory muscle use. Breath sounds equal bilaterally. Trach in place. GASTROINTESTINAL: Abdomen soft, non-tender, nondistended. Bowel sounds x4. PEG in place. Tolerating TF. : Arevalo in place, draining clear skip urine. MUSCULOSKELETAL: No obvious deformities. No clubbing or cyanosis. Trace edema of extremities. Bilat foot drop, flaccid upper ext. NEUROLOGICAL: Eyes opening, tracking. Intermittently following simple commands closes and opens eyes as was looking to left and right upon commands. Nonverbal. No spontaneous movement of extremities noted. Procedures 01/02/16 PEG placement 01/02/16 tracheostomy A/P Problem List: (1) CVA (cerebral vascular accident) ICD Code: I63.9 Status: Acute (2) A-fib ICD Code: I48.91 Status: Chronic (3) DM (diabetes mellitus) ICD Code: E11.9 Status: Chronic Assessment and Plan 60-year-old male with past medical history of paroxysmal atrial fibrillation, hypertension, stage III a non-Hodgkin's lymphoma status post a chemotherapy last year. He came to the hospital with altered mental status, facial droop. 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 Non verbal. Continue Keppra. Palliative care following. Chronic respiratory failure: Secondary to CVA, Status post tracheostomy. Continue pulmonary toilet and neb treatments as needed. Continue bronchodilators Xopenex, trach care, levsin prn, suctioning. A-fib: Continue rate control with Cardizem and metoprolol. Echocardiogram completed in November shows preserved EF. Coumadin discontinued secondary to bleeding. Continue with ASA. Discussed with daughter Xiomara who agrees with anticoagulation with subcutaneous heparin. If no bleeding, we'll consider restarting Coumadin History of Non-Hodgkin lymphoma: s/p brain biopsy on December 13, by Neurosurgery, Dr. Marin. Pathology consistent with acute infarct without evidence of lymphoma. Oncology signed off with no active oncology issues. DM (diabetes mellitus): HgbA1c 7.0. Continue Levemir 35u daily. Continue sliding scale coverage. Monitor accuchecks and adjust the regimen as needed. Decrease frequency to once a day fingersticks have been stable Decubitus ulcer stage IV: Continue Rocephin indefinitely (on lactinex) per ID until OM is ruled out with bone biopsy and watch for further bleeding (off warfarin due to bleeding which appears to have resolved). Continue dressing changes twice daily per wound care recommendations. Continue pressure relief measures, mattress, Turning and positioning. GI/Nutrition: Continue Nepro at 55 cc/hr per dietitian recommendations. Free water flushes. Potassium supplement. Discharge Planning Needs placement if family agrees. Problem Qualifiers (1) DM (diabetes mellitus): Qualified Code: E11.9 - Type 2 diabetes mellitus without complications Thomas Buck MD Jun 10, 2016 13:56
[2016-06-10] MEDS: HEPARIN SODIUM - SQ 10,000 UNITS/ML VIAL SQ SCH (15:41)
[2016-06-10] MEDS: PARoxetine HCL SUSP 20 MG/10 ML UDC PEG SCH (17:31)
[2016-06-10] MEDS: INSULIN DETEMIR 100 UNITS/ML VIAL SQ SCH (20:50)
[2016-06-11] VITALS (9 sets, daily range): BP systolic 98–125; BP diastolic 63–83; PULSE 66–82; RESP 18–20; TEMP 95.5–97.2; O2SAT 95–99
[2016-06-11] MEDS: ACETAMINOPHEN/HYDROcodone 325 MG/5 MG TAB PEG SCH ×3 (00:54→13:14)
[2016-06-11] MEDS: HEPARIN SODIUM - SQ 10,000 UNITS/ML VIAL SQ SCH ×3 (00:58→20:49)
[2016-06-11] MEDS: FREE WATER TUBE SCH ×6 (04:00→20:00)
[2016-06-11] MEDS: ACETIC ACID 0.25% SOLN 1000 ML IRR BTL IRRIGATION SCH ×3 (06:00→20:50)
[2016-06-11] MEDS: RANITIDINE HCL SYRUP 150 MG/10 ML UDC PO SCH (08:34)
[2016-06-11] MEDS: DILTIAZEM HCL 90 MG TAB PEG SCH ×4 (08:34→20:50)
[2016-06-11] MEDS: levETIRAcetam 500 MG/5 ML UDC TUBE SCH ×2 (08:34→20:49)
[2016-06-11] MEDS: ARTIFICIAL TEARS OPTH OINT 3.5 APPLIC/3.5 GM TUBO EACH EYE SCH ×2 (08:34→20:51)
[2016-06-11] MEDS: NYSTATIN 100,000 U/GM PWD 15 GM BTL TOPICAL SCH ×2 (08:35→20:51)
[2016-06-11] MEDS: METOPROLOL TARTRATE 50 MG TAB PO SCH ×2 (08:35→20:50)
[2016-06-11] MEDS: ASPIRIN 325 MG TAB TUBE SCH (08:35)
[2016-06-11] MEDS: POTASSIUM CHLORIDE 25 MEQ EFFERVESCENT TAB TUBE SCH (08:35)
[2016-06-11] MEDS: LACTOBACILLUS ACIDOPHILUS TAB PEG SCH ×3 (08:57→19:20)
[2016-06-11] MEDS: cefTRIAXone INJ 2,000 MG in SODIUM CHLORIDE 0.9% INJ 100 ML IV SCH (13:15)
--- NOTE | 2016-06-11 13:15 | HHI.PR ---
Subjective Remarks Follow-up encephalopathy. Intermittently following simple commands closes and opens eyes as was looking to left and right upon commands. Discussed with daughter Xiomara who agrees with anticoagulation with subcutaneous heparin. If no bleeding, we'll consider restarting Coumadin. No bleeding since subcutaneous heparin started discussed with RN Objective Vitals Vital Signs Date Time Temp Pulse Resp B/P Pulse Ox O2 Delivery O2 Flow Rate FiO2 06/11/16 12:03 Trach Collar 6.00 28 06/11/16 12:00 96.0 70 20 116/75 98 06/11/16 08:00 96.7 75 20 116/73 97 06/11/16 07:18 97.2 82 20 125/83 95 06/11/16 06:00 Trach Collar 6.00 28 06/11/16 02:56 98 T-piece 21 06/11/16 00:00 97.0 66 20 109/68 99 06/10/16 20:00 96.9 79 20 142/80 99 06/10/16 19:55 75 06/10/16 18:00 98 T-piece 6.00 28 06/10/16 16:00 97.2 74 20 116/67 99 06/10/16 14:08 18 I/O 06/10/16 06/10/16 06/10/16 06/11/16 06/11/16 06/11/16 07:00 15:00 23:00 07:00 15:00 23:00 Output Total 3025 ml 625 ml 550 ml Balance -3025 ml -625 ml -550 ml Output Urine Total 3025 ml 625 ml 550 ml # Bowel Movements 6 1 2 Result Diagram: 06/07/1618 06/07/16 0618 Imaging Last Impressions Chest X-Ray 05/16/16 0000 Signed Impressions: Service Date/Time: April 17:35 - CONCLUSION: 1. Tracheostomy in satisfactory position. Mild basilar atelectasis. Durga Dotson MD Abdomen/Pelvis CT 04/12/16 0000 Signed Impressions: Service Date/Time: Tuesday, April 12, 2016 20:52 - CONCLUSION: 1. 6.4 cm necrotic mass or abscess in the soft tissues posteriorly just below the sacrum associated with some bony destructive change of the lower most sacrum and coccyx with inflammatory changes extending into the ischiorectal fossa and into the presacral retroperitoneum predominantly on the left side. There is associated fairly marked mural thickening of the anal verge and rectum. 2. There is gastrostomy and Arevalo catheter present. Stable abdominal aortic aneurysm. Durga Dotson MD Head Magnetic Resonance Angiography 03/05/16 0000 Signed Impressions: Service Date/Time: Saturday, March 05, 2016 09:26 - CONCLUSION: Persistent high-grade subtotal occlusive stenotic lesions in the distal right vertebral artery and proximal basilar artery with significant improvement in flow and recanalization following initial presentation of thrombosis. Stable interstitial circulation without significant stenosis. Ernesto Kulkarni MD Brain MRI 03/05/16 Signed Impressions: Service Date/Time: Saturday, March 05, 2016 09:26 - CONCLUSION: Evolving brainstem and bilateral occipital lobe infarcts with evidence of subacute hemorrhagic products. There is decreasing restricted diffusion and increasing loss of volume characteristic of a subacute to chronic infarct. No evidence of acute infarct, acute hemorrhage mass or edema. Ernesto Kulkarni MD Head CT 01/16/16 Signed Impressions: Service Date/Time: Saturday, January 16, 2016 10:51 - CONCLUSION: No extensive low density in the brainstem colin more prominent in the right the left extending into the right middle cerebellar peduncle consistent with brainstem infarct nonhemorrhagic acute Wellington West MD Abdomen X-Ray 01/14/16 0000 Signed Impressions: Service Date/Time: Thursday, January 14, 2016 10:19 - CONCLUSION: Moderate stool; otherwise, negative. 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 No evidence of carotid stenosis. Glen Zamora MD Head/Brain Mag Res Venography 12/22/15 0000 Signed Impressions: Service Date/Time: Tuesday, December 22, 2015 09:22 - CONCLUSION: Normal MRV. Jonel Jones Jr., MD Objective Remarks GENERAL: Well-developed well-nourished. In no acute distress. No signs of dehydration SKIN: Warm and dry. Sacral ulcer with clean dressing. Off VAC dsg, now just betadine and dry dsg. HEENT: Normocephalic. Pupils equal and round. Mucous membranes pink and moist. Trach in place. Min secretions white. CARDIOVASCULAR: Irregular but controlled rate and irregular rhythm. No murmur appreciated. RESPIRATORY: No accessory muscle use. Breath sounds equal bilaterally. Trach in place. GASTROINTESTINAL: Abdomen soft, non-tender, nondistended. Bowel sounds x4. PEG in place. Tolerating TF. : Arevalo in place, draining clear skip urine. MUSCULOSKELETAL: No obvious deformities. No clubbing or cyanosis. Trace edema of extremities. Bilat foot drop, flaccid upper ext. NEUROLOGICAL: Eyes opening, tracking. Intermittently following simple commands closes and opens eyes as was looking to left and right upon commands. Nonverbal. No spontaneous movement of extremities noted. Procedures 01/02/16 PEG placement 01/02/16 tracheostomy A/P Problem List: (1) CVA (cerebral vascular accident) ICD Code: I63.9 Status: Acute (2) A-fib ICD Code: I48.91 Status: Chronic (3) DM (diabetes mellitus) ICD Code: E11.9 Status: Chronic Assessment and Plan 60-year-old male with past medical history of paroxysmal atrial fibrillation, hypertension, stage III a non-Hodgkin's lymphoma status post a chemotherapy last year. He came to the hospital with altered mental status, facial droop. 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 Non verbal. Continue Keppra. Palliative care following. Chronic respiratory failure: Secondary to CVA, Status post tracheostomy. Continue pulmonary toilet and neb treatments as needed. Continue bronchodilators Xopenex, trach care, levsin prn, suctioning. A-fib: Continue rate control with Cardizem and metoprolol. Echocardiogram completed in November shows preserved EF. Coumadin discontinued secondary to bleeding. Continue with ASA. Discussed with daughter Xiomara who agrees with anticoagulation with subcutaneous heparin. If no bleeding, we'll consider restarting Coumadin History of Non-Hodgkin lymphoma: s/p brain biopsy on December 13, by Neurosurgery, Dr. Marin. Pathology consistent with acute infarct without evidence of lymphoma. Oncology signed off with no active oncology issues. DM (diabetes mellitus): HgbA1c 7.0. Continue Levemir 35u daily. Continue sliding scale coverage. Monitor accuchecks and adjust the regimen as needed. Decrease frequency to once a day fingersticks have been stable Decubitus ulcer stage IV: Continue Rocephin indefinitely (on lactinex) per ID until OM is ruled out with bone biopsy and watch for further bleeding (off warfarin due to bleeding which appears to have resolved). Continue dressing changes twice daily per wound care recommendations. Continue pressure relief measures, mattress, Turning and positioning. GI/Nutrition: Continue Nepro at 55 cc/hr per dietitian recommendations. Free water flushes. Potassium supplement. Discharge Planning Needs placement if family agrees. Problem Qualifiers (1) DM (diabetes mellitus): Qualified Code: E11.9 - Type 2 diabetes mellitus without complications Thomas Buck MD Jun 11, 2016 13:15
[2016-06-11] MEDS: PARoxetine HCL SUSP 20 MG/10 ML UDC PEG SCH (19:20)
[2016-06-11] MEDS: INSULIN DETEMIR 100 UNITS/ML VIAL SQ SCH (20:50)
[2016-06-12] VITALS (8 sets, daily range): BP systolic 110–144; BP diastolic 69–78; PULSE 70–86; RESP 18–19; TEMP 96.7–98.5; O2SAT 96–99
[2016-06-12] MEDS: ACETAMINOPHEN/HYDROcodone 325 MG/5 MG TAB PEG SCH ×5 (00:45→23:17)
[2016-06-12] MEDS: FREE WATER TUBE SCH ×7 (04:00→23:17)
[2016-06-12] MEDS: HEPARIN SODIUM - SQ 10,000 UNITS/ML VIAL SQ SCH ×3 (05:37→21:16)
[2016-06-12] MEDS: ACETIC ACID 0.25% SOLN 1000 ML IRR BTL IRRIGATION SCH ×3 (05:48→21:16)
[2016-06-12] MEDS: POTASSIUM CHLORIDE 25 MEQ EFFERVESCENT TAB TUBE SCH (08:26)
[2016-06-12] MEDS: METOPROLOL TARTRATE 50 MG TAB PO SCH ×2 (08:26→21:16)
[2016-06-12] MEDS: DILTIAZEM HCL 90 MG TAB PEG SCH ×4 (08:26→21:16)
[2016-06-12] MEDS: ASPIRIN 325 MG TAB TUBE SCH (08:26)
[2016-06-12] MEDS: RANITIDINE HCL SYRUP 150 MG/10 ML UDC PO SCH (08:26)
[2016-06-12] MEDS: LACTOBACILLUS ACIDOPHILUS TAB PEG SCH ×3 (08:26→17:06)
[2016-06-12] MEDS: levETIRAcetam 500 MG/5 ML UDC TUBE SCH ×2 (08:26→21:16)
[2016-06-12] MEDS: NYSTATIN 100,000 U/GM PWD 15 GM BTL TOPICAL SCH ×2 (08:27→21:16)
[2016-06-12] MEDS: ARTIFICIAL TEARS OPTH OINT 3.5 APPLIC/3.5 GM TUBO EACH EYE SCH ×2 (08:28→21:00)
[2016-06-12 08:55] LABS: BICARBONATE 25.5 MEQ/L (21.0-32.0); MAGNESIUM 1.7 MG/DL (1.5-2.5); POTASSIUM 3.9 MEQ/L (3.5-5.1)
[2016-06-12] MEDS: cefTRIAXone INJ 2,000 MG in SODIUM CHLORIDE 0.9% INJ 100 ML IV SCH (13:25)
--- NOTE | 2016-06-12 15:47 | HHI.PR ---
Subjective Remarks Allegedly no further bleeding from the backside. Dressings to be changed today. No fever or chills. Objective Vitals Vital Signs Date Time Temp Pulse Resp B/P Pulse Ox O2 Delivery O2 Flow Rate FiO2 06/12/16 12:00 98.5 74 18 111/69 97 06/12/16 09:18 98 T-piece 28 06/12/16 09:18 98 T-piece 28 06/12/16 08:52 Trach Collar 6.00 28 06/12/16 08:00 97.6 86 18 144/75 97 06/12/16 06:00 Trach Collar 6.00 28 06/12/16 04:43 97.5 80 18 142/78 97 06/12/16 00:55 97.9 77 19 140/71 96 06/11/16 23:00 72 06/11/16 20:40 97.2 72 18 98/63 96 06/11/16 18:07 98 T-piece 6.00 28 06/11/16 16:00 95.5 73 20 117/69 98 I/O 06/11/16 06/11/16 06/11/16 06/12/16 06/12/16 06/12/16 07:00 15:00 23:00 07:00 15:00 23:00 Output Total 1300 ml 500 ml 500 ml Balance -1300 ml -500 ml -500 ml Output Urine Total 1300 ml 500 ml 500 ml # Bowel Movements 4 1 Result Diagram: 06/12/1617 Objective Remarks GENERAL: No signs of dehydration SKIN: Sacral ulcer with clean dressing HEENT: . Pupils equal and round. Mucous membranes pink and moist. Trach in place. CARDIOVASCULAR: Irregular but controlled rate and irregular rhythm. No murmur appreciated. RESPIRATORY: No accessory muscle use. Breath sounds equal bilaterally. Trach in place. GASTROINTESTINAL: Abdomen soft, non-tender, nondistended. Bowel sounds x4. PEG in place. Tolerating TF. : Arevalo in place, draining clear skip urine. MUSCULOSKELETAL: Trace edema of extremities. Bilat foot drop, flaccid upper ext. NEUROLOGICAL: Eyes opening, tracking. Intermittently following simple commands closes and opens eyes as was looking to left and right upon commands. Nonverbal. No spontaneous movement of extremities noted. Procedures 01/02/16 PEG placement 01/02/16 tracheostomy A/P Problem List: (1) CVA (cerebral vascular accident) ICD Code: I63.9 Status: Acute (2) A-fib ICD Code: I48.91 Status: Chronic (3) DM (diabetes mellitus) ICD Code: E11.9 Status: Chronic Assessment and Plan 60-year-old male with past medical history of paroxysmal atrial fibrillation, hypertension, stage III a non-Hodgkin's lymphoma status post a chemotherapy last year. He came to the hospital with altered mental status, facial droop. 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 Non verbal. Continue Keppra. Palliative care following. Chronic respiratory failure: Secondary to CVA, Status post tracheostomy. Continue pulmonary toilet and neb treatments as needed. Continue bronchodilators Xopenex, trach care, levsin prn, suctioning. A-fib: Continue rate control with Cardizem and metoprolol. Echocardiogram completed in November shows preserved EF. Coumadin discontinued secondary to bleeding. Continue with ASA. Discussed with daughter Xiomara who agrees with anticoagulation with subcutaneous heparin. If persistently without any bleeding , consider starting Coumadin. History of Non-Hodgkin lymphoma: s/p brain biopsy on December 13, by Neurosurgery, Dr. Marin. Pathology consistent with acute infarct without evidence of lymphoma. Oncology signed off with no active oncology issues. DM (diabetes mellitus): HgbA1c 7.0. Continue Levemir 35u daily. Continue sliding scale coverage. Monitor accuchecks and adjust the regimen as needed. Decrease frequency to once a day fingersticks have been stable Decubitus ulcer stage IV: Continue Rocephin indefinitely (on lactinex) per ID until OM is ruled out with bone biopsy and watch for further bleeding (off warfarin due to bleeding which appears to have resolved). Continue dressing changes twice daily per wound care recommendations. Continue pressure relief measures, mattress, Turning and positioning. GI/Nutrition: Continue Nepro at 55 cc/hr per dietitian recommendations. Free water flushes. Potassium supplement. Seen 06/11/16, no change in management. Discussed with RN Problem Qualifiers (1) DM (diabetes mellitus): Qualified Code: E11.9 - Type 2 diabetes mellitus without complications Radha Espino MD Jun 12, 2016 15:47
[2016-06-12] MEDS: PARoxetine HCL SUSP 20 MG/10 ML UDC PEG SCH (18:59)
[2016-06-12] MEDS: INSULIN DETEMIR 100 UNITS/ML VIAL SQ SCH (21:15)
[2016-06-13] VITALS (10 sets, daily range): BP systolic 108–147; BP diastolic 59–72; PULSE 64–94; RESP 18–20; TEMP 96.4–98; O2SAT 97–100
[2016-06-13] MEDS: FREE WATER TUBE SCH ×6 (04:00→23:16)
[2016-06-13] MEDS: ACETAMINOPHEN/HYDROcodone 325 MG/5 MG TAB PEG SCH ×4 (05:58→23:16)
[2016-06-13] MEDS: HEPARIN SODIUM - SQ 10,000 UNITS/ML VIAL SQ SCH ×3 (05:58→22:53)
[2016-06-13] MEDS: ACETIC ACID 0.25% SOLN 1000 ML IRR BTL IRRIGATION SCH ×3 (05:58→22:54)
[2016-06-13] MEDS: NYSTATIN 100,000 U/GM PWD 15 GM BTL TOPICAL SCH ×2 (09:00→22:54)
[2016-06-13] MEDS: ARTIFICIAL TEARS OPTH OINT 3.5 APPLIC/3.5 GM TUBO EACH EYE SCH ×2 (09:00→21:00)
[2016-06-13] MEDS: LACTOBACILLUS ACIDOPHILUS TAB PEG SCH ×3 (09:12→18:00)
[2016-06-13] MEDS: METOPROLOL TARTRATE 50 MG TAB PO SCH ×2 (09:12→22:53)
[2016-06-13] MEDS: DILTIAZEM HCL 90 MG TAB PEG SCH ×4 (09:12→22:53)
[2016-06-13] MEDS: POTASSIUM CHLORIDE 25 MEQ EFFERVESCENT TAB TUBE SCH (09:12)
[2016-06-13] MEDS: ASPIRIN 325 MG TAB TUBE SCH (09:12)
[2016-06-13] MEDS: levETIRAcetam 500 MG/5 ML UDC TUBE SCH ×2 (09:12→22:53)
[2016-06-13] MEDS: RANITIDINE HCL SYRUP 150 MG/10 ML UDC PO SCH (09:12)
[2016-06-13] MEDS: cefTRIAXone INJ 2,000 MG in SODIUM CHLORIDE 0.9% INJ 100 ML IV SCH (12:19)
[2016-06-13] MEDS: PARoxetine HCL SUSP 20 MG/10 ML UDC PEG SCH (18:29)
--- NOTE | 2016-06-13 18:44 | HHI.PR ---
Subjective Remarks Discussed with RN. No acute concerns. Wound dressing was changed today with no significant bleeding. Vital signs of been stable. Objective Vitals Vital Signs Date Time Temp Pulse Resp B/P Pulse Ox O2 Delivery O2 Flow Rate FiO2 06/13/16 17:21 97.3 74 20 120/71 97 06/13/16 13:11 96.4 66 20 111/59 100 06/13/16 10:51 97 T-piece 28 06/13/16 08:25 96.7 74 20 137/69 99 06/13/16 04:17 98.0 72 18 131/72 97 06/13/16 00:06 97.1 64 18 108/71 98 06/12/16 22:00 98 T-Piece 28 06/12/16 20:18 96.7 70 18 110/77 97 06/12/16 20:00 75 06/12/16 19:51 99 T-piece 28 I/O 06/12/16 06/12/16 06/12/16 06/13/16 06/13/16 06/13/16 07:00 15:00 23:00 07:00 15:00 23:00 Output Total 1000 ml 1000 ml 850 ml Balance -1000 ml -1000 ml -850 ml Output Urine Total 1000 ml 1000 ml 850 ml # Bowel Movements 4 1 Result Diagram: 06/12/16816 Objective Remarks GENERAL: Obese male patient. SKIN: Warm and dry. HEAD: Normocephalic. EYES: No scleral icterus. No injection or drainage. NECK: trach in place. CARDIOVASCULAR: Regular rate and rhythm without murmurs, gallops, or rubs. RESPIRATORY: Breath sounds equal bilaterally. No accessory muscle use. GASTROINTESTINAL: Abdomen soft, non-tender, nondistended. EXTREMITIES: 1+ edema of hands and legs. NEUROLOGICAL: Awake, alert. Does not follow commands. Does not appear to track consistently with eyes. Procedures 01/02/16 PEG placement 01/02/16 tracheostomy A/P Problem List: (1) CVA (cerebral vascular accident) ICD Code: I63.9 Status: Acute (2) A-fib ICD Code: I48.91 Status: Chronic (3) DM (diabetes mellitus) ICD Code: E11.9 Status: Chronic Assessment and Plan 60-year-old male with past medical history of paroxysmal atrial fibrillation, hypertension, stage III a non-Hodgkin's lymphoma status post a chemotherapy last year. He came to the hospital with altered mental status, facial droop. 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 Non verbal. Continue Keppra. Palliative care following. Chronic respiratory failure: Secondary to CVA, Status post tracheostomy. Continue pulmonary toilet and neb treatments as needed. Continue bronchodilators Xopenex, trach care, levsin prn, suctioning. A-fib: Continue rate control with Cardizem and metoprolol. Echocardiogram completed in November shows preserved EF. Coumadin discontinued secondary to bleeding. Continue with ASA. If persistently without any bleeding, consider starting Coumadin. History of Non-Hodgkin lymphoma: s/p brain biopsy on December 13, by Neurosurgery, Dr. Marin. Pathology consistent with acute infarct without evidence of lymphoma. Oncology signed off with no active oncology issues. DM (diabetes mellitus): HgbA1c 7.0. Continue Levemir 35u daily. Continue sliding scale coverage. Monitor accuchecks and adjust the regimen as needed. Decrease frequency to once a day fingersticks have been stable Decubitus ulcer stage IV: Continue Rocephin indefinitely (on lactinex) per ID until OM is ruled out with bone biopsy and watch for further bleeding (off warfarin due to bleeding which appears to have resolved). Continue dressing changes twice daily per wound care recommendations. Continue pressure relief measures, mattress, Turning and positioning. Patient's family declined a diverting colostomy. GI/Nutrition: Continue Nepro at 55 cc/hr per dietitian recommendations. Free water flushes. Potassium supplement. Discharge Planning No payor source for [facility] care facility. Problem Qualifiers (1) DM (diabetes mellitus): Qualified Code: E11.9 - Type 2 diabetes mellitus without complications Lena Gonzalez MD Jun 13, 2016 18:44
[2016-06-13] MEDS: INSULIN DETEMIR 100 UNITS/ML VIAL SQ SCH (22:54)
[2016-06-14] VITALS (9 sets, daily range): BP systolic 114–129; BP diastolic 66–80; PULSE 63–77; RESP 18–24; TEMP 96.3–98.4; O2SAT 95–99
[2016-06-14] MEDS: FREE WATER TUBE SCH ×5 (03:17→20:00)
[2016-06-14] MEDS: ACETIC ACID 0.25% SOLN 1000 ML IRR BTL IRRIGATION SCH ×3 (06:41→20:57)
[2016-06-14] MEDS: HEPARIN SODIUM - SQ 10,000 UNITS/ML VIAL SQ SCH ×3 (06:41→20:55)
[2016-06-14] MEDS: ACETAMINOPHEN/HYDROcodone 325 MG/5 MG TAB PEG SCH ×3 (06:41→18:41)
[2016-06-14] MEDS: ARTIFICIAL TEARS OPTH OINT 3.5 APPLIC/3.5 GM TUBO EACH EYE SCH ×2 (09:00→20:57)
[2016-06-14] MEDS: NYSTATIN 100,000 U/GM PWD 15 GM BTL TOPICAL SCH ×2 (09:00→20:58)
[2016-06-14] MEDS: ASPIRIN 325 MG TAB TUBE SCH (09:22)
[2016-06-14] MEDS: METOPROLOL TARTRATE 50 MG TAB PO SCH ×2 (09:22→20:55)
[2016-06-14] MEDS: levETIRAcetam 500 MG/5 ML UDC TUBE SCH ×2 (09:22→20:55)
[2016-06-14] MEDS: LACTOBACILLUS ACIDOPHILUS TAB PEG SCH ×3 (09:22→18:41)
[2016-06-14] MEDS: DILTIAZEM HCL 90 MG TAB PEG SCH ×4 (09:22→20:55)
[2016-06-14] MEDS: RANITIDINE HCL SYRUP 150 MG/10 ML UDC PO SCH (09:22)
[2016-06-14] MEDS: POTASSIUM CHLORIDE 25 MEQ EFFERVESCENT TAB TUBE SCH (09:23)
[2016-06-14] MEDS: cefTRIAXone INJ 2,000 MG in SODIUM CHLORIDE 0.9% INJ 100 ML IV SCH (12:36)
--- NOTE | 2016-06-14 18:03 | HHI.PR ---
Subjective Remarks No acute issues. Mother states he moved his fingers earlier and that gave her encouragement. Objective Vitals Vital Signs Date Time Temp Pulse Resp B/P Pulse Ox O2 Delivery O2 Flow Rate FiO2 06/14/16 10:18 99 T-piece 28 06/14/16 10:18 99 T-piece 28 06/14/16 09:00 77 06/14/16 08:00 96.9 75 24 115/73 99 06/14/16 08:00 Trach Collar 35 T-Piece 06/14/16 05:31 97.8 72 18 125/80 96 06/14/16 02:00 98 T-Piece 35 06/14/16 00:08 97.4 63 19 119/74 98 06/13/16 23:30 75 06/13/16 20:18 97 T-piece 8.00 35 06/13/16 20:18 97 T-piece 8.00 35 06/13/16 20:17 97.0 94 19 147/65 98 I/O 06/13/16 06/13/16 06/13/16 06/14/16 06/14/16 06/14/16 07:00 15:00 23:00 07:00 15:00 23:00 Intake Total 400 ml 200 ml 400 ml 200 ml Output Total 1000 ml 1350 ml Balance -1000 ml 400 ml -1150 ml 400 ml 200 ml Other 400 ml 200 ml 400 ml 200 ml Output Urine Total 1000 ml 1350 ml # Bowel Movements 1 Result Diagram: 06/12/16 0817 Objective Remarks GENERAL: Obese male patient. SKIN: Warm and dry. HEAD: Normocephalic. EYES: No scleral icterus. No injection or drainage. NECK: trach in place. CARDIOVASCULAR: Regular rate and rhythm without murmurs, gallops, or rubs. RESPIRATORY: Breath sounds equal bilaterally. No accessory muscle use. GASTROINTESTINAL: Abdomen soft, non-tender, nondistended. EXTREMITIES: 1+ edema of hands and legs. NEUROLOGICAL: Awake, alert. Does not follow commands. Does not appear to track consistently with eyes. Procedures 01/02/16 PEG placement 01/02/16 tracheostomy A/P Problem List: (1) CVA (cerebral vascular accident) ICD Code: I63.9 Status: Acute (2) A-fib ICD Code: I48.91 Status: Chronic (3) DM (diabetes mellitus) ICD Code: E11.9 Status: Chronic Assessment and Plan 60-year-old male with past medical history of paroxysmal atrial fibrillation, hypertension, stage III a non-Hodgkin's lymphoma status post a chemotherapy last year. He came to the hospital with altered mental status, facial droop. 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 Non verbal. Continue Keppra. Palliative care following. Chronic respiratory failure: Secondary to CVA, Status post tracheostomy. Continue pulmonary toilet and neb treatments as needed. Continue bronchodilators Xopenex, trach care, levsin prn, suctioning. A-fib: Continue rate control with Cardizem and metoprolol. Echocardiogram completed in November shows preserved EF. Coumadin discontinued secondary to bleeding. Continue with ASA. If persistently without any bleeding, consider restarting Coumadin. History of Non-Hodgkin lymphoma: s/p brain biopsy on December 13, by Neurosurgery, Dr. Marin. Pathology consistent with acute infarct without evidence of lymphoma. Oncology signed off with no active oncology issues. DM (diabetes mellitus): HgbA1c 7.0. Continue Levemir 35u daily. Continue sliding scale coverage. Monitor accuchecks and adjust the regimen as needed. Decrease frequency to once a day fingersticks have been stable Decubitus ulcer stage IV: Continue Rocephin indefinitely (on lactinex) per ID until OM is ruled out with bone biopsy and watch for further bleeding (off warfarin due to bleeding which appears to have resolved). Continue dressing changes twice daily per wound care recommendations. Continue pressure relief measures, mattress, Turning and positioning. Patient's family declined a diverting colostomy. GI/Nutrition: Continue Nepro at 55 cc/hr per dietitian recommendations. Free water flushes. Potassium supplement. DVT px - SCDs. Discharge Planning No payor source for senior living care facility. Problem Qualifiers (1) DM (diabetes mellitus): Qualified Code: E11.9 - Type 2 diabetes mellitus without complications Lena Gonzalez MD Jun 14, 2016 18:03
[2016-06-14] MEDS: PARoxetine HCL SUSP 20 MG/10 ML UDC PEG SCH (18:41)
[2016-06-14] MEDS: INSULIN DETEMIR 100 UNITS/ML VIAL SQ SCH (20:55)
[2016-06-15] VITALS (10 sets, daily range): BP systolic 100–121; BP diastolic 66–72; PULSE 61–92; RESP 18–25; TEMP 96.6–98.1; O2SAT 96–100
[2016-06-15] MEDS: ACETAMINOPHEN/HYDROcodone 325 MG/5 MG TAB PEG SCH ×4 (00:28→18:26)
[2016-06-15] MEDS: FREE WATER TUBE SCH ×6 (04:00→20:00)
[2016-06-15] MEDS: HEPARIN SODIUM - SQ 10,000 UNITS/ML VIAL SQ SCH ×3 (05:17→20:15)
[2016-06-15] MEDS: ACETIC ACID 0.25% SOLN 1000 ML IRR BTL IRRIGATION SCH ×3 (05:18→20:15)
[2016-06-15] MEDS: INSULIN ASPART SUPPLEMENTAL SCALE SQ SCH (09:52)
[2016-06-15] MEDS: DILTIAZEM HCL 90 MG TAB PEG SCH ×4 (09:53→20:14)
[2016-06-15] MEDS: METOPROLOL TARTRATE 50 MG TAB PO SCH ×2 (09:53→20:14)
[2016-06-15] MEDS: POTASSIUM CHLORIDE 25 MEQ EFFERVESCENT TAB TUBE SCH (09:53)
[2016-06-15] MEDS: RANITIDINE HCL SYRUP 150 MG/10 ML UDC PO SCH (09:53)
[2016-06-15] MEDS: NYSTATIN 100,000 U/GM PWD 15 GM BTL TOPICAL SCH ×2 (09:54→20:15)
[2016-06-15] MEDS: LACTOBACILLUS ACIDOPHILUS TAB PEG SCH ×3 (09:54→18:25)
[2016-06-15] MEDS: ASPIRIN 325 MG TAB TUBE SCH (09:54)
[2016-06-15] MEDS: ARTIFICIAL TEARS OPTH OINT 3.5 APPLIC/3.5 GM TUBO EACH EYE SCH ×2 (09:54→20:16)
[2016-06-15] MEDS: levETIRAcetam 500 MG/5 ML UDC TUBE SCH ×2 (09:54→20:14)
[2016-06-15] MEDS: cefTRIAXone INJ 2,000 MG in SODIUM CHLORIDE 0.9% INJ 100 ML IV SCH (12:21)
--- NOTE | 2016-06-15 14:51 | HHI.PR ---
Subjective Remarks No neurologic changes. mother continues to hope for more meaningful response from patient. Objective Vitals Vital Signs Date Time Temp Pulse Resp B/P Pulse Ox O2 Delivery O2 Flow Rate FiO2 06/15/16 12:00 96.6 67 18 107/69 98 06/15/16 10:56 61 06/15/16 08:00 98 T-piece 28 06/15/16 08:00 97.2 64 18 121/72 98 06/15/16 08:00 98 T-piece 28 06/15/16 04:35 97.9 73 20 118/67 98 06/15/16 04:34 98 T-piece 21 06/15/16 00:53 98.1 63 22 114/69 100 06/14/16 21:07 96.3 73 20 114/66 99 06/14/16 20:00 72 06/14/16 20:00 99 Trach Collar 28 T-Piece 06/14/16 16:00 97.5 73 20 129/70 95 I/O 06/14/16 06/14/16 06/14/16 06/15/16 06/15/16 06/15/16 07:00 15:00 23:00 07:00 15:00 23:00 Intake Total 400 ml 1054 ml 790 ml Output Total 1000 ml 300 ml 400 ml Balance -600 ml 754 ml 390 ml Intake Oral 0 ml Tube Feeding 654 ml 390 ml Other 400 ml 400 ml 400 ml Output Urine Total 1000 ml 300 ml 400 ml # Bowel Movements 4 1 2 Result Diagram: 06/12/16 0817 Objective Remarks GENERAL: Obese male patient. SKIN: Warm and dry. HEAD: Normocephalic. EYES: No scleral icterus. No injection or drainage. NECK: trach in place. CARDIOVASCULAR: Regular rate and rhythm without murmurs, gallops, or rubs. RESPIRATORY: Breath sounds equal bilaterally. No accessory muscle use. GASTROINTESTINAL: Abdomen soft, non-tender, nondistended. EXTREMITIES: 1+ edema of hands and legs. NEUROLOGICAL: Awake, alert. Does not follow commands. Does not appear to track consistently with eyes. Procedures 01/02/16 PEG placement 01/02/16 tracheostomy A/P Problem List: (1) CVA (cerebral vascular accident) ICD Code: I63.9 Status: Acute (2) A-fib ICD Code: I48.91 Status: Chronic (3) DM (diabetes mellitus) ICD Code: E11.9 Status: Chronic Assessment and Plan 60-year-old male with past medical history of paroxysmal atrial fibrillation, hypertension, stage III a non-Hodgkin's lymphoma status post a chemotherapy last year. He came to the hospital with altered mental status, facial droop. 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 Non verbal. Continue Keppra. Palliative care following. Chronic respiratory failure: Secondary to CVA, Status post tracheostomy. Continue pulmonary toilet and neb treatments as needed. Continue bronchodilators Xopenex, trach care, levsin prn, suctioning. A-fib: Continue rate control with Cardizem and metoprolol. Echocardiogram completed in November shows preserved EF. Coumadin discontinued secondary to bleeding. Continue with ASA. If persistently without any bleeding, consider restarting Coumadin. History of Non-Hodgkin lymphoma: s/p brain biopsy on December 13, by Neurosurgery, Dr. Marin. Pathology consistent with acute infarct without evidence of lymphoma. Oncology signed off with no active oncology issues. DM (diabetes mellitus): HgbA1c 7.0. Continue Levemir 35u daily. Continue sliding scale coverage. Monitor accuchecks and adjust the regimen as needed. Decrease frequency to once a day fingersticks have been stable Decubitus ulcer stage IV: Continue Rocephin indefinitely (on lactinex) per ID until OM is ruled out with bone biopsy and watch for further bleeding (off warfarin due to bleeding which appears to have resolved). Continue dressing changes twice daily per wound care recommendations. Continue pressure relief measures, mattress, Turning and positioning. Patient's family declined a diverting colostomy. GI/Nutrition: Continue Nepro at 55 cc/hr per dietitian recommendations. Free water flushes. Potassium supplement. DVT px - SCDs. Discharge Planning No payor source for care home care facility. Problem Qualifiers (1) DM (diabetes mellitus): Qualified Code: E11.9 - Type 2 diabetes mellitus without complications Lena Gonzalez MD Jun 15, 2016 14:51
[2016-06-15] MEDS: PARoxetine HCL SUSP 20 MG/10 ML UDC PEG SCH (18:25)
[2016-06-15] MEDS: INSULIN DETEMIR 100 UNITS/ML VIAL SQ SCH (20:14)
[2016-06-16] VITALS (9 sets, daily range): BP systolic 93–141; BP diastolic 61–80; PULSE 68–98; RESP 14–18; TEMP 97.3–98.7; O2SAT 93–100
[2016-06-16] MEDS: ACETAMINOPHEN/HYDROcodone 325 MG/5 MG TAB PEG SCH ×4 (01:36→18:33)
[2016-06-16] MEDS: FREE WATER TUBE SCH ×6 (04:00→20:00)
[2016-06-16] MEDS: HEPARIN SODIUM - SQ 10,000 UNITS/ML VIAL SQ SCH ×3 (05:36→22:29)
[2016-06-16] MEDS: ACETIC ACID 0.25% SOLN 1000 ML IRR BTL IRRIGATION SCH ×3 (05:54→22:30)
[2016-06-16] MEDS: ARTIFICIAL TEARS OPTH OINT 3.5 APPLIC/3.5 GM TUBO EACH EYE SCH ×2 (09:00→22:35)
[2016-06-16] MEDS: METOPROLOL TARTRATE 50 MG TAB PO SCH ×2 (09:28→22:29)
[2016-06-16] MEDS: RANITIDINE HCL SYRUP 150 MG/10 ML UDC PO SCH (09:28)
[2016-06-16] MEDS: LACTOBACILLUS ACIDOPHILUS TAB PEG SCH ×3 (09:28→18:33)
[2016-06-16] MEDS: DILTIAZEM HCL 90 MG TAB PEG SCH ×5 (09:28→22:29)
[2016-06-16] MEDS: ASPIRIN 325 MG TAB TUBE SCH (09:28)
[2016-06-16] MEDS: levETIRAcetam 500 MG/5 ML UDC TUBE SCH ×2 (09:28→22:28)
[2016-06-16] MEDS: POTASSIUM CHLORIDE 25 MEQ EFFERVESCENT TAB TUBE SCH (09:28)
[2016-06-16] MEDS: NYSTATIN 100,000 U/GM PWD 15 GM BTL TOPICAL SCH ×2 (09:29→22:34)
--- NOTE | 2016-06-16 12:17 | HHI.PR ---
Subjective Remarks Patient seen with mother at bedside. The patient's mother states that he can move some of the fingertips on his right hand on command. No bleeding with dressing changes. Objective Vitals Vital Signs Date Time Temp Pulse Resp B/P Pulse Ox O2 Delivery O2 Flow Rate FiO2 06/16/16 10:49 83 06/16/16 08:00 87 16 141/80 99 06/16/16 06:46 20 06/16/16 04:00 98.7 98 16 101/61 93 06/16/16 00:00 98.6 68 18 120/70 98 06/15/16 20:22 97.7 70 25 100/66 96 06/15/16 20:00 97.7 70 25 100/66 96 06/15/16 20:00 96 T-Piece 6.00 28 06/15/16 20:00 73 06/15/16 18:06 T-piece 6.00 28 06/15/16 16:00 97.4 77 20 115/72 99 I/O 06/15/16 06/15/16 06/15/16 06/16/16 06/16/16 06/16/16 06:59 14:59 22:59 06:59 14:59 22:59 Intake Total 790 ml 1256 ml 400 ml Output Total 400 ml 1100 ml 400 ml Balance 390 ml -1100 ml 856 ml 400 ml Tube Feeding 390 ml 1056 ml Other 400 ml 200 ml 400 ml Output Urine Total 400 ml 1100 ml 400 ml # Bowel Movements 2 2 Result Diagram: 06/12/16 0817 Objective Remarks GENERAL: Well-developed well-nourished. In no acute distress. SKIN: Warm and dry. Sacral ulcer with clean dressing. HEENT: Normocephalic. Pupils equal and round. Mucous membranes pink and moist. Trach in place. CARDIOVASCULAR: Irregular but controlled rate and irregular rhythm. No murmur appreciated. RESPIRATORY: No accessory muscle use. Clear to auscultation. Breath sounds equal bilaterally. Rhonchi and crackles present. GASTROINTESTINAL: Abdomen soft, non-tender, nondistended. Bowel sounds x4. PEG in place. MUSCULOSKELETAL: No obvious deformities. No clubbing or cyanosis. No edema. NEUROLOGICAL: Awake and alert. Does look towards voice. Locked in. Nonverbal. Able to slightly move index and middle finger on the right hand by command today. Procedures 01/02/16 PEG placement 01/02/16 tracheostomy A/P Problem List: (1) CVA (cerebral vascular accident) ICD Code: I63.9 Status: Acute (2) A-fib ICD Code: I48.91 Status: Chronic (3) DM (diabetes mellitus) ICD Code: E11.9 Status: Chronic Assessment and Plan 60-year-old male with past medical history of paroxysmal atrial fibrillation, hypertension, stage III a non-Hodgkin's lymphoma status post a chemotherapy last year. He came to the hospital with altered mental status, facial droop. 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 Non verbal. Continue Keppra. Palliative care following. Chronic respiratory failure: Secondary to CVA, Status post tracheostomy. Continue pulmonary toilet and neb treatments as needed. Continue bronchodilators Xopenex, trach care, levsin prn, suctioning. A-fib: Continue rate control with Cardizem and metoprolol. Echocardiogram completed in November shows preserved EF. Coumadin discontinued secondary to bleeding. Continue with ASA and prophylactic heparin dose. If persistently without any bleeding, could consider restarting Coumadin. History of Non-Hodgkin lymphoma: s/p brain biopsy on December 13, by Neurosurgery, Dr. Marin. Pathology consistent with acute infarct without evidence of lymphoma. Oncology signed off with no active oncology issues. DM (diabetes mellitus): HgbA1c 7.0. Continue Levemir 35u daily. Continue sliding scale coverage. Monitor accuchecks and adjust the regimen as needed. Decrease frequency to once a day fingersticks have been stable Decubitus ulcer stage IV: Continue Rocephin indefinitely (on lactinex) per ID until OM is ruled out with bone biopsy and watch for further bleeding (off warfarin due to bleeding which appears to have resolved). Continue dressing changes twice daily per wound care recommendations. Continue pressure relief measures, mattress, Turning and positioning. Patient's family declined a diverting colostomy. GI/Nutrition: Continue Nepro at 55 cc/hr per dietitian recommendations. Free water flushes. Potassium supplement. DVT px - SCDs. Heparin. Written by Floyd Vinson, acting as scribe for Dr. Gonzalez on 06/16/16 at 12:58. The documentation accurately reflects the work performed [id number] by Dr. Gonzalez on 06/16/16 at 12:58. Problem Qualifiers (1) DM (diabetes mellitus): Qualified Code: E11.9 - Type 2 diabetes mellitus without complications Floyd Vinson Jun 16, 2016 12:17
[2016-06-16] MEDS: cefTRIAXone INJ 2,000 MG in SODIUM CHLORIDE 0.9% INJ 100 ML IV SCH (12:37)
[2016-06-16] MEDS: PARoxetine HCL SUSP 20 MG/10 ML UDC PEG SCH (18:33)
[2016-06-16] MEDS: INSULIN DETEMIR 100 UNITS/ML VIAL SQ SCH (22:29)
[2016-06-17] VITALS (11 sets, daily range): BP systolic 99–130; BP diastolic 60–76; PULSE 62–86; RESP 14–22; TEMP 95–97.8; O2SAT 95–100
[2016-06-17] MEDS: FREE WATER TUBE SCH ×6 (04:00→20:00)
[2016-06-17] MEDS: ACETAMINOPHEN/HYDROcodone 325 MG/5 MG TAB PEG SCH ×4 (05:05→18:16)
[2016-06-17] MEDS: HEPARIN SODIUM - SQ 10,000 UNITS/ML VIAL SQ SCH ×3 (05:05→22:32)
[2016-06-17] MEDS: ACETIC ACID 0.25% SOLN 1000 ML IRR BTL IRRIGATION SCH ×3 (05:06→22:33)
[2016-06-17] MEDS: levETIRAcetam 500 MG/5 ML UDC TUBE SCH ×2 (11:31→22:31)
[2016-06-17] MEDS: RANITIDINE HCL SYRUP 150 MG/10 ML UDC PO SCH (11:31)
[2016-06-17] MEDS: POTASSIUM CHLORIDE 25 MEQ EFFERVESCENT TAB TUBE SCH (11:31)
[2016-06-17] MEDS: LACTOBACILLUS ACIDOPHILUS TAB PEG SCH ×3 (11:32→18:15)
[2016-06-17] MEDS: METOPROLOL TARTRATE 50 MG TAB PO SCH ×2 (11:32→22:31)
[2016-06-17] MEDS: ASPIRIN 325 MG TAB TUBE SCH (11:32)
[2016-06-17] MEDS: DILTIAZEM HCL 90 MG TAB PEG SCH ×4 (11:32→22:32)
[2016-06-17] MEDS: ARTIFICIAL TEARS OPTH OINT 3.5 APPLIC/3.5 GM TUBO EACH EYE SCH ×2 (11:33→22:34)
[2016-06-17] MEDS: NYSTATIN 100,000 U/GM PWD 15 GM BTL TOPICAL SCH ×2 (11:33→22:35)
[2016-06-17] MEDS: cefTRIAXone INJ 2,000 MG in SODIUM CHLORIDE 0.9% INJ 100 ML IV SCH (11:34)
--- NOTE | 2016-06-17 16:17 | HHI.PR ---
Subjective Remarks Patient seen with mother at bedside. No acute complaints or issues reported today by nursing. Pt's mother is concerned about the pt's blood pressure being too low. She notes he has been sleeping most of the day. The patient's mother does feel quite overwhelmed taking care of her son here in the hospital. Objective Vitals Vital Signs Date Time Temp Pulse Resp B/P Pulse Ox O2 Delivery O2 Flow Rate FiO2 06/17/16 14:00 72 20 124/70 97 06/17/16 12:35 20 06/17/16 12:00 96.8 76 22 128/76 98 06/17/16 10:22 98 T-piece 5.00 28 06/17/16 10:22 98 T-piece 5.00 28 06/17/16 08:00 97.6 72 22 120/72 100 06/17/16 04:00 97.4 86 14 130/73 98 06/17/16 00:00 95.0 72 16 114/69 98 06/16/16 20:01 100 T-piece 5.00 28 06/16/16 20:01 100 T-piece 5.00 28 06/16/16 20:00 98 T-Piece 6.00 28 06/16/16 20:00 97.4 86 14 130/70 98 06/16/16 20:00 77 I/O 06/16/16 06/16/16 06/16/16 06/17/16 06/17/16 06/17/16 07:00 15:00 23:00 07:00 15:00 23:00 Intake Total 400 ml 0 ml 1173 ml 713 ml Output Total 650 ml Balance 400 ml -650 ml 1173 ml 713 ml Intake Oral 0 ml Tube Feeding 973 ml 313 ml Other 400 ml 200 ml 400 ml Output Urine Total 650 ml # Bowel Movements 1 Objective Remarks GENERAL: Well-developed well-nourished. In no acute distress. SKIN: Warm and dry. Sacral ulcer with clean dressing. HEENT: Normocephalic. Pupils equal and round. Mucous membranes pink and moist. Trach in place. CARDIOVASCULAR: Irregular but controlled rate and irregular rhythm. No murmur appreciated. RESPIRATORY: No accessory muscle use. Clear to auscultation. Breath sounds equal bilaterally. Trach sounds. GASTROINTESTINAL: Abdomen soft, non-tender, nondistended. Bowel sounds x4. PEG in place. MUSCULOSKELETAL: No obvious deformities. No clubbing or cyanosis. No edema. NEUROLOGICAL: Awake and alert, but a bit sleepy today. Locked in. Nonverbal. Procedures 01/02/16 PEG placement 01/02/16 tracheostomy A/P Problem List: (1) CVA (cerebral vascular accident) ICD Code: I63.9 Status: Acute (2) A-fib ICD Code: I48.91 Status: Chronic (3) DM (diabetes mellitus) ICD Code: E11.9 Status: Chronic Assessment and Plan 60-year-old male with past medical history of paroxysmal atrial fibrillation, hypertension, stage III a non-Hodgkin's lymphoma status post a chemotherapy last year. He came to the hospital with altered mental status, facial droop. 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 Non verbal. Continue Keppra. Palliative care following. Chronic respiratory failure: Secondary to CVA, Status post tracheostomy. Continue pulmonary toilet and neb treatments as needed. Continue bronchodilators Xopenex, trach care, levsin prn, suctioning. A-fib: Continue rate control with Cardizem and metoprolol. Echocardiogram completed in November shows preserved EF. Coumadin discontinued secondary to bleeding. Continue with ASA and prophylactic heparin dose. If persistently without any bleeding, could consider restarting Coumadin. HTN - blood pressure has been very well controlled - however pt's mother today was concerned and reports a 90/60 (however RN not aware of any low blood pressure today). Will recheck BP now and ensure hold parameters are followed on BP medications. History of Non-Hodgkin lymphoma: s/p brain biopsy on December 13, by Neurosurgery, Dr. Marin. Pathology consistent with acute infarct without evidence of lymphoma. Oncology signed off with no active oncology issues. DM (diabetes mellitus): HgbA1c 7.0. Continue Levemir 35u daily. Continue sliding scale coverage. Monitor accuchecks and adjust the regimen as needed. Decrease frequency to once a day fingersticks have been stable Decubitus ulcer stage IV: Continue Rocephin indefinitely (on lactinex) per ID until OM is ruled out with bone biopsy and watch for further bleeding (off warfarin due to bleeding which appears to have resolved). Continue dressing changes twice daily per wound care recommendations. Continue pressure relief measures, mattress, Turning and positioning. Patient's family declined a diverting colostomy. GI/Nutrition: Continue Nepro at 55 cc/hr per dietitian recommendations. Free water flushes. Potassium supplement. DVT px - SCDs. Heparin. Written by Floyd Vinson, acting as scribe for Dr. Gonzalez on 06/17/16 at 16:16. Attending Statement The documentation accurately reflects the work performed [id number] by me on 06/17/16 at 16:16. Problem Qualifiers (1) DM (diabetes mellitus): Qualified Code: E11.9 - Type 2 diabetes mellitus without complications Floyd Vinson Jun 17, 2016 16:17 Lena Gonzalez MD Jun 17, 2016 16:50
[2016-06-17] MEDS: PARoxetine HCL SUSP 20 MG/10 ML UDC PEG SCH (18:15)
[2016-06-17] MEDS: INSULIN DETEMIR 100 UNITS/ML VIAL SQ SCH (22:33)
[2016-06-18] VITALS (10 sets, daily range): BP systolic 99–125; BP diastolic 61–73; PULSE 64–88; RESP 20–22; TEMP 96.5–99.2; O2SAT 97–100
[2016-06-18] MEDS: FREE WATER TUBE SCH ×7 (04:00→21:07)
[2016-06-18] MEDS: HEPARIN SODIUM - SQ 10,000 UNITS/ML VIAL SQ SCH ×3 (05:48→21:00)
[2016-06-18] MEDS: ACETAMINOPHEN/HYDROcodone 325 MG/5 MG TAB PEG SCH ×4 (05:48→18:00)
[2016-06-18] MEDS: ACETIC ACID 0.25% SOLN 1000 ML IRR BTL IRRIGATION SCH ×3 (05:52→21:01)
[2016-06-18] MEDS: DILTIAZEM HCL 90 MG TAB PEG SCH ×4 (08:12→21:00)
[2016-06-18] MEDS: RANITIDINE HCL SYRUP 150 MG/10 ML UDC PO SCH (08:12)
[2016-06-18] MEDS: levETIRAcetam 500 MG/5 ML UDC TUBE SCH ×2 (08:12→21:00)
[2016-06-18] MEDS: METOPROLOL TARTRATE 50 MG TAB PO SCH ×2 (08:12→21:00)
[2016-06-18] MEDS: LACTOBACILLUS ACIDOPHILUS TAB PEG SCH ×3 (08:12→18:33)
[2016-06-18] MEDS: ASPIRIN 325 MG TAB TUBE SCH (08:13)
[2016-06-18] MEDS: POTASSIUM CHLORIDE 25 MEQ EFFERVESCENT TAB TUBE SCH (08:14)
[2016-06-18] MEDS: NYSTATIN 100,000 U/GM PWD 15 GM BTL TOPICAL SCH ×2 (08:15→21:01)
[2016-06-18] MEDS: ARTIFICIAL TEARS OPTH OINT 3.5 APPLIC/3.5 GM TUBO EACH EYE SCH ×2 (09:00→21:01)
[2016-06-18] MEDS: cefTRIAXone INJ 2,000 MG in SODIUM CHLORIDE 0.9% INJ 100 ML IV SCH (12:54)
--- NOTE | 2016-06-18 15:15 | HHI.PR ---
Subjective Remarks F/u decub. No bleeding on Heparin SQ seen with mother dw RN Objective Vitals Vital Signs Date Time Temp Pulse Resp B/P Pulse Ox O2 Delivery O2 Flow Rate FiO2 06/18/16 11:25 70 06/18/16 11:00 99.2 88 22 99/61 97 06/18/16 09:25 99 T-piece 28 06/18/16 08:07 97 T-Piece 6.00 28 06/18/16 08:00 98.6 78 22 125/70 97 06/18/16 04:00 97.3 67 20 115/73 97 06/18/16 00:00 97.3 64 20 110/70 100 06/17/16 21:58 95 T-piece 6.00 06/17/16 21:57 96 T-piece 6.00 06/17/16 20:00 97.8 70 18 113/68 98 06/17/16 16:00 96.1 62 22 99/60 97 I/O 06/17/16 06/17/16 06/17/16 06/18/16 06/18/16 06/18/16 07:00 15:00 23:00 07:00 15:00 23:00 Intake Total 713 ml 537 ml 0 ml Output Total 300 ml 300 ml 800 ml Balance 713 ml -300 ml 237 ml -800 ml 0 ml Intake Oral 0 ml IV Total 100 ml Tube Feeding 313 ml 437 ml Other 400 ml Output Urine Total 300 ml 300 ml 800 ml Bladder Scan Volume Amount 392 ml # Bowel Movements 1 Objective Remarks GENERAL: Well-developed well-nourished. In no acute distress. SKIN: Warm and dry. Sacral ulcer with clean dressing. HEENT: Normocephalic. Pupils equal and round. Mucous membranes pink and moist. Trach in place. CARDIOVASCULAR: Irregular but controlled rate and irregular rhythm. No murmur appreciated. RESPIRATORY: No accessory muscle use. Clear to auscultation. Breath sounds equal bilaterally. Trach sounds. GASTROINTESTINAL: Abdomen soft, non-tender, nondistended. Bowel sounds x4. PEG in place. MUSCULOSKELETAL: No obvious deformities. No clubbing or cyanosis. No edema. NEUROLOGICAL: Awake and alert, but a bit sleepy today. Locked in. Nonverbal. Procedures 01/02/16 PEG placement 01/02/16 tracheostomy A/P Problem List: (1) CVA (cerebral vascular accident) ICD Code: I63.9 Status: Acute (2) A-fib ICD Code: I48.91 Status: Chronic (3) DM (diabetes mellitus) ICD Code: E11.9 Status: Chronic Assessment and Plan 60-year-old male with past medical history of paroxysmal atrial fibrillation, hypertension, stage III a non-Hodgkin's lymphoma status post a chemotherapy last year. He came to the hospital with altered mental status, facial droop. 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 Non verbal. Continue Keppra. Palliative care following. Chronic respiratory failure: Secondary to CVA, Status post tracheostomy. Continue pulmonary toilet and neb treatments as needed. Continue bronchodilators Xopenex, trach care, levsin prn, suctioning. A-fib: Continue rate control with Cardizem and metoprolol. Echocardiogram completed in November shows preserved EF. Coumadin discontinued secondary to bleeding. Continue with ASA and prophylactic heparin dose. If persistently without any bleeding, could consider restarting Coumadin. Repeat CBC and BMP in the morning HTN - stable History of Non-Hodgkin lymphoma: s/p brain biopsy on December 13, by Neurosurgery, Dr. Marin. Pathology consistent with acute infarct without evidence of lymphoma. Oncology signed off with no active oncology issues. DM (diabetes mellitus): HgbA1c 7.0. Continue Levemir 35u daily. Continue sliding scale coverage. Monitor accuchecks and adjust the regimen as needed. Decrease frequency to once a day fingersticks have been stable Decubitus ulcer stage IV: Continue Rocephin indefinitely (on lactinex) per ID until OM is ruled out with bone biopsy and watch for further bleeding (off warfarin due to bleeding which appears to have resolved). Continue dressing changes twice daily per wound care recommendations. Continue pressure relief measures, mattress, Turning and positioning. Patient's family declined a diverting colostomy. GI/Nutrition: Continue Nepro at 55 cc/hr per dietitian recommendations. Free water flushes. Potassium supplement. DVT px - SCDs. Heparin. Discharge Planning Needs placement if family consents. Problem Qualifiers (1) DM (diabetes mellitus): Qualified Code: E11.9 - Type 2 diabetes mellitus without complications Thomas Buck MD Jun 18, 2016 15:15
[2016-06-18] MEDS: PARoxetine HCL SUSP 20 MG/10 ML UDC PEG SCH (18:33)
[2016-06-18] MEDS: INSULIN DETEMIR 100 UNITS/ML VIAL SQ SCH (21:00)
[2016-06-19] VITALS (8 sets, daily range): BP systolic 118–138; BP diastolic 66–83; PULSE 66–85; RESP 18–20; TEMP 95.9–98.6; O2SAT 96–99
[2016-06-19] MEDS: FREE WATER TUBE SCH ×6 (04:00→21:43)
[2016-06-19] MEDS: ACETAMINOPHEN/HYDROcodone 325 MG/5 MG TAB PEG SCH ×4 (05:45→18:46)
[2016-06-19] MEDS: HEPARIN SODIUM - SQ 10,000 UNITS/ML VIAL SQ SCH ×3 (05:45→21:43)
[2016-06-19] MEDS: ACETIC ACID 0.25% SOLN 1000 ML IRR BTL IRRIGATION SCH ×3 (05:45→21:43)
[2016-06-19] MEDS: DILTIAZEM HCL 90 MG TAB PEG SCH ×4 (08:21→21:42)
[2016-06-19] MEDS: METOPROLOL TARTRATE 50 MG TAB PO SCH (08:21)
[2016-06-19] MEDS: POTASSIUM CHLORIDE 25 MEQ EFFERVESCENT TAB TUBE SCH (08:22)
[2016-06-19] MEDS: levETIRAcetam 500 MG/5 ML UDC TUBE SCH ×2 (08:22→21:43)
[2016-06-19] MEDS: RANITIDINE HCL SYRUP 150 MG/10 ML UDC PO SCH (08:22)
[2016-06-19] MEDS: LACTOBACILLUS ACIDOPHILUS TAB PEG SCH ×3 (08:22→18:45)
[2016-06-19] MEDS: ASPIRIN 325 MG TAB TUBE SCH (08:22)
[2016-06-19 08:58] LABS: AUTOMATED NEUTROPHIL # 3.1 TH/MM3 (1.8-7.7); BASOPHIL % 0.9 % (0.0-2.0); EOSINOPHIL # 0.1 TH/MM3 (0-0.4); EOSINOPHIL % 2.7 % (0.0-4.0); HEMATOCRIT 33.7 % (39.0-51.0); LYMPHOCYTE # 1.1 TH/MM3 (1.0-4.8); MEAN CORPUSCULAR HEMOGLOBIN 23.5 PG (27.0-34.0); MEAN CORPUSCULAR HGB CONC 31.4 % (32.0-36.0); MONO % 7.6 % (0.0-8.0); NEUT % 65.8 % (16.0-70.0); PLATELET COUNT 207 TH/MM3 (150-450); RED CELL DISTRIBUTION WIDTH 21.1 % (11.6-17.2); WHITE BLOOD COUNT 4.8 TH/MM3 (4.0-11.0)
[2016-06-19] MEDS: ARTIFICIAL TEARS OPTH OINT 3.5 APPLIC/3.5 GM TUBO EACH EYE SCH ×2 (09:00→21:43)
[2016-06-19 09:06] LABS: HEMO FLAGS AUTO DIFF
[2016-06-19 09:20] LABS: BICARBONATE 28.2 MEQ/L (21.0-32.0); MAGNESIUM 1.9 MG/DL (1.5-2.5); POTASSIUM 3.8 MEQ/L (3.5-5.1)
--- NOTE | 2016-06-19 09:20 | HHI.PR ---
Subjective Remarks seems like he made eye contact and turned to call of his name minimal secretions on suctioning tolerating tube feedings at goal rate Objective Vitals Vital Signs Date Time Temp Pulse Resp B/P Pulse Ox O2 Delivery O2 Flow Rate FiO2 06/19/16 08:54 99 T-piece 3.00 28 06/19/16 08:00 97.6 78 20 138/83 98 06/19/16 04:00 98.6 79 20 133/78 98 06/19/16 00:06 96 T-Piece 6.00 28 06/19/16 00:00 98.1 70 20 118/72 99 06/18/16 21:05 98.2 81 20 124/70 99 06/18/16 20:51 100 T-piece 28 06/18/16 20:51 100 T-piece 28 06/18/16 20:07 81 06/18/16 19:57 100 T-Piece 6.00 28 06/18/16 17:30 96.5 77 22 103/68 97 06/18/16 11:25 70 06/18/16 11:00 99.2 88 22 99/61 97 06/18/16 09:25 99 T-piece 28 I/O 06/18/16 06/18/16 06/18/16 06/19/16 06/19/16 06/19/16 06:59 14:59 22:59 06:59 14:59 22:59 Intake Total 0 ml 0 ml Output Total 800 ml 1200 ml 800 ml Balance -800 ml 0 ml -1200 ml -800 ml Intake Oral 0 ml 0 ml Output Urine Total 800 ml 1200 ml 800 ml # Bowel Movements 1 2 2 Result Diagram: 06/19/16 0747 Imaging Last Impressions Chest X-Ray 05/16/16 0000 Signed Impressions: Service Date/Time: April 17:35 - CONCLUSION: 1. Tracheostomy in satisfactory position. Mild basilar atelectasis. Durga Dotson MD Abdomen/Pelvis CT 04/12/16 0000 Signed Impressions: Service Date/Time: Tuesday, April 12, 2016 20:52 - CONCLUSION: 1. 6.4 cm necrotic mass or abscess in the soft tissues posteriorly just below the sacrum associated with some bony destructive change of the lower most sacrum and coccyx with inflammatory changes extending into the ischiorectal fossa and into the presacral retroperitoneum predominantly on the left side. There is associated fairly marked mural thickening of the anal verge and rectum. 2. There is gastrostomy and Lopez catheter present. Stable abdominal aortic aneurysm. Durga Dotson MD Head Magnetic Resonance Angiography 03/05/16 0000 Signed Impressions: Service Date/Time: Saturday, March 05, 2016 09:26 - CONCLUSION: Persistent high-grade subtotal occlusive stenotic lesions in the distal right vertebral artery and proximal basilar artery with significant improvement in flow and recanalization following initial presentation of thrombosis. Stable interstitial circulation without significant stenosis. 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 There is decreasing restricted diffusion and increasing loss of volume characteristic of a subacute to chronic infarct. No evidence of acute infarct, acute hemorrhage mass or edema. Ernesto Kulkarni MD Head CT 01/16/16 0000 Signed Impressions: Service Date/Time: Saturday, January 16, 2016 10:51 - CONCLUSION: No extensive low density in the brainstem colin more prominent in the right the left extending into the right middle cerebellar peduncle consistent with brainstem infarct nonhemorrhagic acute Wellington West MD Abdomen X-Ray 01/14/16 0000 Signed Impressions: Service Date/Time: Thursday, January 14, 2016 10:19 - CONCLUSION: Moderate stool; otherwise, negative. 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 No evidence of carotid stenosis. Glen Zamora MD Head/Brain Mag Res Venography 12/22/15 0000 Signed Impressions: Service Date/Time: Tuesday, December 22, 2015 09:22 - CONCLUSION: Normal MRV. Jonel Jones Jr., MD Objective Remarks eyes turned to side to call of his name pupils equal, anicteric mild facial asymmetry no gag reflex neck supple no rigidity, tracheostomy in place lungs- no rales or wheezes regular rhythm abdomen- soft, good bowel sounds, PEG site- no signs of erythema lopez in place, no scrotal swelling, no inguinal rash back wound- wound packing in place- edges clean--minimal sersanguinous drainage extremities- feet withdrawal to stimulation Procedures 01/02/16 PEG placement 01/02/16 tracheostomy Urinary Catheter: Yes Assessment to: Continue Lopez insert reason: Prolonged Immobilization Date of Insertion: Jun 06, 2016 A/P Problem List: (1) CVA (cerebral vascular accident) ICD Code: I63.9 Status: Acute (2) A-fib ICD Code: I48.91 Status: Chronic (3) DM (diabetes mellitus) ICD Code: E11.9 Status: Chronic Assessment and Plan 60-year-old male with past medical history of paroxysmal atrial fibrillation, hypertension, stage III a non-Hodgkin's lymphoma status post a chemotherapy last year. He came to the hospital with altered mental status, facial droop. 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 Non verbal. Continue Keppra. Palliative care following. Chronic respiratory failure: Secondary to CVA, Status post tracheostomy. Continue pulmonary toilet and neb treatments as needed. Continue bronchodilators Xopenex, trach care, levsin prn, suctioning. A-fib: Continue rate control with Cardizem and metoprolol. Echocardiogram completed in November shows preserved EF. Coumadin discontinued secondary to bleeding. Continue with ASA and prophylactic heparin dose. If persistently without any bleeding, could consider restarting Coumadin. CBC- stable 06/19 BMP - pending 06/19 HTN - stable History of Non-Hodgkin lymphoma: s/p brain biopsy on December 13, by Neurosurgery, Dr. Marin. Pathology consistent with acute infarct without evidence of lymphoma. Oncology signed off with no active oncology issues. DM (diabetes mellitus): HgbA1c 7.0. Continue Levemir 35u daily. Continue sliding scale coverage. Monitor accuchecks and adjust the regimen as needed. Decrease frequency to once a day fingersticks have been stable Decubitus ulcer stage IV: Continue Rocephin indefinitely (on lactinex) per ID until OM is ruled out with bone biopsy and watch for further bleeding (off warfarin due to bleeding which appears to have resolved). Continue dressing changes twice daily per wound care recommendations. Continue pressure relief measures, mattress, Turning and positioning. Patient's family declined a diverting colostomy. SN to call me in am when dressing changed GI/Nutrition: Continue Nepro at 55 cc/hr per dietitian recommendations. Free water flushes. Potassium supplement. DVT px - SCDs. d/w Mother at bedside and nurse Problem Qualifiers (1) DM (diabetes mellitus): Qualified Code: E11.9 - Type 2 diabetes mellitus without complications Soco Pickett MD Jun 19, 2016 09:20
[2016-06-19 10:18] LABS: BANDS 11 % (0-6); BASOPHILS 2 % (0-2); EOSINOPHILS 1 % (0-4); NEUTROPHIL # MANUAL DIFF 3.7 TH/MM3 (1.8-7.7); PLATELET ESTIMATE SMEAR NORMAL (NORMAL); PLATELET MORPHOLOGY NORMAL (NORMAL); POLYS (SEG NEUTROPHILS) 66 % (16-70); SCAN/DIFF FINAL DIFF MANUAL; TEARDROP RBCS 1+ (NORMAL); WBC DIFF SAMPLE 100
[2016-06-19] MEDS: cefTRIAXone INJ 2,000 MG in SODIUM CHLORIDE 0.9% INJ 100 ML IV SCH (12:33)
[2016-06-19] MEDS: NYSTATIN 100,000 U/GM PWD 15 GM BTL TOPICAL SCH ×2 (12:36→21:43)
[2016-06-19] MEDS: PARoxetine HCL SUSP 20 MG/10 ML UDC PEG SCH (18:45)
[2016-06-19] MEDS: INSULIN DETEMIR 100 UNITS/ML VIAL SQ SCH (21:43)
[2016-06-20] VITALS (10 sets, daily range): BP systolic 107–139; BP diastolic 66–84; PULSE 64–84; RESP 18–22; TEMP 96.4–98.3; O2SAT 94–98
[2016-06-20] MEDS: FREE WATER TUBE SCH ×5 (00:50→20:00)
[2016-06-20] MEDS: ACETAMINOPHEN/HYDROcodone 325 MG/5 MG TAB PEG SCH ×5 (00:50→22:02)
[2016-06-20] MEDS: METOPROLOL TARTRATE 50 MG TAB PO SCH ×3 (00:50→22:02)
[2016-06-20] MEDS: HEPARIN SODIUM - SQ 10,000 UNITS/ML VIAL SQ SCH ×3 (06:24→22:03)
[2016-06-20] MEDS: LACTOBACILLUS ACIDOPHILUS TAB PEG SCH ×3 (08:20→18:39)
[2016-06-20] MEDS: levETIRAcetam 500 MG/5 ML UDC TUBE SCH ×2 (08:20→22:02)
[2016-06-20] MEDS: RANITIDINE HCL SYRUP 150 MG/10 ML UDC PO SCH (08:20)
[2016-06-20] MEDS: ASPIRIN 325 MG TAB TUBE SCH (08:21)
[2016-06-20] MEDS: DILTIAZEM HCL 90 MG TAB PEG SCH ×4 (08:21→22:02)
[2016-06-20] MEDS: POTASSIUM CHLORIDE 25 MEQ EFFERVESCENT TAB TUBE SCH (08:21)
[2016-06-20] MEDS: ACETIC ACID 0.25% SOLN 1000 ML IRR BTL IRRIGATION SCH ×3 (08:23→22:00)
[2016-06-20] MEDS: ARTIFICIAL TEARS OPTH OINT 3.5 APPLIC/3.5 GM TUBO EACH EYE SCH ×2 (08:23→21:00)
[2016-06-20] MEDS: NYSTATIN 100,000 U/GM PWD 15 GM BTL TOPICAL SCH ×2 (08:24→21:00)
--- NOTE | 2016-06-20 10:13 | HHI.PR ---
Subjective Remarks resting comfortably, opened his eyes to call of his name tolerating tube feedings - no residual Objective Vitals Vital Signs Date Time Temp Pulse Resp B/P Pulse Ox O2 Delivery O2 Flow Rate FiO2 06/20/16 08:00 96.8 72 22 137/84 97 06/20/16 04:00 97.0 84 18 139/78 96 06/20/16 01:30 98.3 69 18 125/75 95 06/20/16 01:03 68 06/19/16 20:00 95.9 66 18 119/69 97 06/19/16 16:00 96.8 75 20 126/77 98 06/19/16 12:00 97.3 67 20 120/66 96 I/O 06/19/16 06/19/16 06/19/16 06/20/16 06/20/16 06/20/16 07:00 15:00 23:00 07:00 15:00 23:00 Output Total 800 ml 600 ml 975 ml Balance -800 ml -600 ml -975 ml Output Urine Total 800 ml 600 ml 975 ml # Bowel Movements 2 1 3 Result Diagram: 06/19/16 0747 06/19/16 0747 Imaging Last Impressions Chest X-Ray 05/16/16 0000 Signed Impressions: Service Date/Time: April 17:35 - CONCLUSION: 1. Tracheostomy in satisfactory position. Mild basilar atelectasis. Durga Dotson MD Abdomen/Pelvis CT 04/12/16 0000 Signed Impressions: Service Date/Time: Tuesday, April 12, 2016 20:52 - CONCLUSION: 1. 6.4 cm necrotic mass or abscess in the soft tissues posteriorly just below the sacrum associated with some bony destructive change of the lower most sacrum and coccyx with inflammatory changes extending into the ischiorectal fossa and into the presacral retroperitoneum predominantly on the left side. There is associated fairly marked mural thickening of the anal verge and rectum. 2. There is gastrostomy and Lopez catheter present. Stable abdominal aortic aneurysm. Durga Dotson MD Head Magnetic Resonance Angiography 03/05/16 0000 Signed Impressions: Service Date/Time: Saturday, March 05, 2016 09:26 - CONCLUSION: Persistent high-grade subtotal occlusive stenotic lesions in the distal right vertebral artery and proximal basilar artery with significant improvement in flow and recanalization following initial presentation of thrombosis. Stable interstitial circulation without significant stenosis. 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 There is decreasing restricted diffusion and increasing loss of volume characteristic of a subacute to chronic infarct. No evidence of acute infarct, acute hemorrhage mass or edema. Ernesto Kulkarni MD Head CT 01/16/16 0000 Signed Impressions: Service Date/Time: Saturday, January 16, 2016 10:51 - CONCLUSION: No extensive low density in the brainstem colin more prominent in the right the left extending into the right middle cerebellar peduncle consistent with brainstem infarct nonhemorrhagic acute Wellington West MD Abdomen X-Ray 01/14/16 0000 Signed Impressions: Service Date/Time: Thursday, January 14, 2016 10:19 - CONCLUSION: Moderate stool; otherwise, negative. 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 No evidence of carotid stenosis. Glen Zamora MD Head/Brain Mag Res Venography 12/22/15 0000 Signed Impressions: Service Date/Time: Tuesday, December 22, 2015 09:22 - CONCLUSION: Normal MRV. Jonel Jones Jr., MD Objective Remarks opened eyes to call of his name pupils equal, anicteric mild facial asymmetry no gag reflex neck supple no rigidity, tracheostomy in place lungs- no rales or wheezes regular rhythm abdomen- soft, good bowel sounds, PEG site- no signs of erythema lopez in place, no scrotal swelling, no inguinal rash sacral wound - quarter size open wound- about 2-3 inches arleen, edges clean, wound packing mildly blood tinged- extremities- both feet withdrawal to stimulation Procedures 01/02/16 PEG placement 01/02/16 tracheostomy Date of Insertion: Jun 06, 2016 A/P Problem List: (1) CVA (cerebral vascular accident) ICD Code: I63.9 Status: Acute (2) A-fib ICD Code: I48.91 Status: Chronic (3) DM (diabetes mellitus) ICD Code: E11.9 Status: Chronic Assessment and Plan 60-year-old male with past medical history of paroxysmal atrial fibrillation, hypertension, stage III a non-Hodgkin's lymphoma status post a chemotherapy last year. He came to the hospital with altered mental status, facial droop. 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 Non verbal. Continue Keppra. Palliative care following. Chronic respiratory failure: Secondary to CVA, Status post tracheostomy. Continue pulmonary toilet and neb treatments as needed. Continue bronchodilators Xopenex, trach care, levsin prn, suctioning. A-fib: Continue rate control with Cardizem and metoprolol. Echocardiogram completed in November shows preserved EF. Coumadin discontinued secondary to bleeding. Continue with ASA and prophylactic heparin dose. If persistently without any bleeding, could consider restarting Coumadin. CBC- stable 06/19 BMP - pending 06/19 HTN - stable History of Non-Hodgkin lymphoma: s/p brain biopsy on December 13, by Neurosurgery, Dr. Marin. Pathology consistent with acute infarct without evidence of lymphoma. Oncology signed off with no active oncology issues. DM (diabetes mellitus): HgbA1c 7.0. Continue Levemir 35u daily. Continue sliding scale coverage. Monitor accuchecks and adjust the regimen as needed. Decrease frequency to once a day fingersticks have been stable Decubitus ulcer stage IV: Continue Rocephin indefinitely (on lactinex) per ID until OM is ruled out with bone biopsy and watch for further bleeding (off warfarin due to bleeding which appears to have resolved). Continue dressing changes twice daily per wound care recommendations. Continue pressure relief measures, mattress, Turning and positioning. Patient's family declined a diverting colostomy. SN to call me in am when dressing changed GI/Nutrition: Continue Nepro at 55 cc/hr per dietitian recommendations. Free water flushes. Potassium supplement. DVT px - SCDs. d/w Mother at bedside and nurse Problem Qualifiers (1) DM (diabetes mellitus): Qualified Code: E11.9 - Type 2 diabetes mellitus without complications Soco Pickett MD Jun 20, 2016 10:13
[2016-06-20] MEDS: cefTRIAXone INJ 2,000 MG in SODIUM CHLORIDE 0.9% INJ 100 ML IV SCH (12:27)
[2016-06-20] MEDS: PARoxetine HCL SUSP 20 MG/10 ML UDC PEG SCH (18:39)
[2016-06-20] MEDS: INSULIN DETEMIR 100 UNITS/ML VIAL SQ SCH (21:00)
[2016-06-21] VITALS (9 sets, daily range): BP systolic 103–127; BP diastolic 61–92; PULSE 64–91; RESP 18–22; TEMP 95.6–98.2; O2SAT 95–99
[2016-06-21] MEDS: FREE WATER TUBE SCH ×7 (04:00→22:37)
[2016-06-21] MEDS: ACETAMINOPHEN/HYDROcodone 325 MG/5 MG TAB PEG SCH ×4 (05:03→22:36)
[2016-06-21] MEDS: ACETIC ACID 0.25% SOLN 1000 ML IRR BTL IRRIGATION SCH ×2 (05:03→22:00)
[2016-06-21] MEDS: HEPARIN SODIUM - SQ 10,000 UNITS/ML VIAL SQ SCH ×3 (05:04→22:35)
[2016-06-21] MEDS: INSULIN ASPART SUPPLEMENTAL SCALE SQ SCH (06:46)
[2016-06-21] MEDS: ASPIRIN 325 MG TAB TUBE SCH (09:00)
[2016-06-21] MEDS: ARTIFICIAL TEARS OPTH OINT 3.5 APPLIC/3.5 GM TUBO EACH EYE SCH ×2 (09:00→21:00)
[2016-06-21] MEDS: LACTOBACILLUS ACIDOPHILUS TAB PEG SCH ×3 (09:00→18:28)
[2016-06-21] MEDS: METOPROLOL TARTRATE 50 MG TAB PO SCH ×2 (09:00→22:36)
[2016-06-21] MEDS: POTASSIUM CHLORIDE 25 MEQ EFFERVESCENT TAB TUBE SCH (09:00)
[2016-06-21] MEDS: levETIRAcetam 500 MG/5 ML UDC TUBE SCH ×2 (09:00→22:36)
[2016-06-21] MEDS: DILTIAZEM HCL 90 MG TAB PEG SCH ×4 (09:00→22:36)
[2016-06-21] MEDS: RANITIDINE HCL SYRUP 150 MG/10 ML UDC PO SCH (09:00)
[2016-06-21] MEDS: cefTRIAXone INJ 2,000 MG in SODIUM CHLORIDE 0.9% INJ 100 ML IV SCH (11:26)
--- NOTE | 2016-06-21 16:29 | HHI.PR ---
Subjective Remarks seen with Mom at bedside tolerating tube feedings no acute events Objective Vitals Vital Signs Date Time Temp Pulse Resp B/P Pulse Ox O2 Delivery O2 Flow Rate FiO2 06/21/16 13:10 98 T-piece 28 06/21/16 13:10 98 T-piece 28 06/21/16 12:00 97.6 66 22 110/68 95 06/21/16 08:30 95.6 71 22 127/75 99 06/21/16 05:40 97.8 72 18 117/71 97 06/21/16 00:17 98.2 64 18 103/61 95 06/20/16 22:00 T-Piece 6.00 28 06/20/16 21:46 98.0 69 20 107/66 94 06/20/16 20:54 98 T-piece 6.00 28 06/20/16 20:54 98 T-piece 6.00 28 06/20/16 18:46 118/69 06/20/16 17:20 97 T-piece 5.00 28 06/20/16 17:20 97 T-piece 5.00 28 I/O 06/20/16 06/20/16 06/20/16 06/21/16 06/21/16 06/21/16 07:00 15:00 23:00 07:00 15:00 23:00 Intake Total 1492 ml Output Total 975 ml 650 ml 800 ml 350 ml Balance -975 ml 842 ml -800 ml -350 ml IV Total 0 ml Tube Feeding 692 ml Other 800 ml Output Urine Total 975 ml 650 ml 800 ml 350 ml # Bowel Movements 3 2 1 1 Result Diagram: 06/19/16 0747 06/19/16 0747 Imaging Last Impressions Chest X-Ray 05/16/16 0000 Signed Impressions: Service Date/Time: April 17:35 - CONCLUSION: 1. Tracheostomy in satisfactory position. Mild basilar atelectasis. Durga Dotson MD Abdomen/Pelvis CT 04/12/16 0000 Signed Impressions: Service Date/Time: Tuesday, April 12, 2016 20:52 - CONCLUSION: 1. 6.4 cm necrotic mass or abscess in the soft tissues posteriorly just below the sacrum associated with some bony destructive change of the lower most sacrum and coccyx with inflammatory changes extending into the ischiorectal fossa and into the presacral retroperitoneum predominantly on the left side. There is associated fairly marked mural thickening of the anal verge and rectum. 2. There is gastrostomy and Lopez catheter present. Stable abdominal aortic aneurysm. Durga Dotson MD Head Magnetic Resonance Angiography 03/05/16 0000 Signed Impressions: Service Date/Time: Saturday, March 05, 2016 09:26 - CONCLUSION: Persistent high-grade subtotal occlusive stenotic lesions in the distal right vertebral artery and proximal basilar artery with significant improvement in flow and recanalization following initial presentation of thrombosis. Stable interstitial circulation without significant stenosis. 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 There is decreasing restricted diffusion and increasing loss of volume characteristic of a subacute to chronic infarct. No evidence of acute infarct, acute hemorrhage mass or edema. Ernesto Kulkarni MD Head CT 01/16/16 0000 Signed Impressions: Service Date/Time: Saturday, January 16, 2016 10:51 - CONCLUSION: No extensive low density in the brainstem colin more prominent in the right the left extending into the right middle cerebellar peduncle consistent with brainstem infarct nonhemorrhagic acute Wellington West MD Abdomen X-Ray 01/14/16 0000 Signed Impressions: Service Date/Time: Thursday, January 14, 2016 10:19 - CONCLUSION: Moderate stool; otherwise, negative. 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 No evidence of carotid stenosis. Glen Zamora MD Head/Brain Mag Res Venography 12/22/15 0000 Signed Impressions: Service Date/Time: Tuesday, December 22, 2015 09:22 - CONCLUSION: Normal MRV. Jonel Jones Jr., MD Objective Remarks made eye contact to call of his name pupils equal, anicteric mild facial asymmetry no gag reflex neck supple no rigidity, tracheostomy in place lungs- no rales or wheezes regular rhythm abdomen- soft, good bowel sounds, PEG site- no signs of erythema lopez in place, no scrotal swelling, no inguinal rash sacral wound - quarter size open wound- about 2-3 inches deep, edges clean, wound packing mildly blood tinged- extremities- both feet withdrawal to stimulation Procedures 01/02/16 PEG placement 01/02/16 tracheostomy Urinary Catheter: Yes Lopez insert reason: Prolonged Immobilization Date of Insertion: Jun 06, 2016 A/P Problem List: (1) CVA (cerebral vascular accident) ICD Code: I63.9 Status: Acute (2) A-fib ICD Code: I48.91 Status: Chronic (3) DM (diabetes mellitus) ICD Code: E11.9 Status: Chronic Assessment and Plan 60-year-old male with past medical history of paroxysmal atrial fibrillation, hypertension, stage III a non-Hodgkin's lymphoma status post a chemotherapy last year. He came to the hospital with altered mental status, facial droop. 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 Non verbal. Continue Keppra. Palliative care following. Chronic respiratory failure: Secondary to CVA, Status post tracheostomy. Continue pulmonary toilet and neb treatments as needed. Continue bronchodilators Xopenex, trach care, levsin prn, suctioning. A-fib: Continue rate control with Cardizem and metoprolol. Echocardiogram completed in November shows preserved EF. Coumadin discontinued secondary to bleeding. Continue with ASA and prophylactic heparin dose. If persistently without any bleeding, could consider restarting Coumadin. CBC- stable 06/19 HTN - stable History of Non-Hodgkin lymphoma: s/p brain biopsy on December 13, by Neurosurgery, Dr. Marin. Pathology consistent with acute infarct without evidence of lymphoma. Oncology signed off with no active oncology issues. DM (diabetes mellitus): HgbA1c 7.0. Continue Levemir 35u daily. Continue sliding scale coverage. Monitor accuchecks and adjust the regimen as needed. Decrease frequency to once a day fingersticks have been stable Decubitus ulcer stage IV: Continue Rocephin indefinitely (on lactinex) per ID until OM is ruled out with bone biopsy and watch for further bleeding (off warfarin due to bleeding which appears to have resolved). Continue dressing changes twice daily per wound care recommendations. Continue pressure relief measures, mattress, Turning and positioning. Patient's family declined a diverting colostomy. SN to call me in am when dressing changed GI/Nutrition: Continue Nepro at 55 cc/hr per dietitian recommendations. Free water flushes. Potassium supplement. DVT px - SCDs. d/w Mother at bedside and nurse Problem Qualifiers (1) DM (diabetes mellitus): Qualified Code: E11.9 - Type 2 diabetes mellitus without complications Soco Pickett MD Jun 21, 2016 16:29
[2016-06-21] MEDS: PARoxetine HCL SUSP 20 MG/10 ML UDC PEG SCH (18:28)
[2016-06-21] MEDS: INSULIN DETEMIR 100 UNITS/ML VIAL SQ SCH (21:00)
[2016-06-21] MEDS: NYSTATIN 100,000 U/GM PWD 15 GM BTL TOPICAL SCH (21:00)
[2016-06-22] VITALS (9 sets, daily range): BP systolic 111–133; BP diastolic 68–75; PULSE 64–75; RESP 18–22; TEMP 96.2–97.4; O2SAT 97–100
[2016-06-22] MEDS: FREE WATER TUBE SCH ×5 (04:00→20:00)
[2016-06-22] MEDS: ACETIC ACID 0.25% SOLN 1000 ML IRR BTL IRRIGATION SCH ×3 (06:00→21:01)
[2016-06-22] MEDS: HEPARIN SODIUM - SQ 10,000 UNITS/ML VIAL SQ SCH ×3 (06:33→20:55)
[2016-06-22] MEDS: ACETAMINOPHEN/HYDROcodone 325 MG/5 MG TAB PEG SCH ×3 (06:33→18:13)
[2016-06-22] MEDS: DILTIAZEM HCL 90 MG TAB PEG SCH ×4 (08:14→21:00)
[2016-06-22] MEDS: levETIRAcetam 500 MG/5 ML UDC TUBE SCH ×2 (08:14→21:00)
[2016-06-22] MEDS: RANITIDINE HCL SYRUP 150 MG/10 ML UDC PO SCH (08:15)
[2016-06-22] MEDS: LACTOBACILLUS ACIDOPHILUS TAB PEG SCH ×3 (08:15→18:13)
[2016-06-22] MEDS: NYSTATIN 100,000 U/GM PWD 15 GM BTL TOPICAL SCH ×2 (08:15→21:01)
[2016-06-22] MEDS: POTASSIUM CHLORIDE 25 MEQ EFFERVESCENT TAB TUBE SCH (08:15)
[2016-06-22] MEDS: METOPROLOL TARTRATE 50 MG TAB PO SCH ×2 (08:15→21:00)
[2016-06-22] MEDS: ASPIRIN 325 MG TAB TUBE SCH (08:15)
[2016-06-22] MEDS: ARTIFICIAL TEARS OPTH OINT 3.5 APPLIC/3.5 GM TUBO EACH EYE SCH ×2 (09:00→20:59)
--- NOTE | 2016-06-22 11:16 | HHI.PR ---
Subjective Remarks no acute events supportive Mom at bedside tolerating tube feedings made eye contact, chewing Objective Vitals Vital Signs Date Time Temp Pulse Resp B/P Pulse Ox O2 Delivery O2 Flow Rate FiO2 06/22/16 08:29 97 T-Piece 6.00 28 06/22/16 08:27 97.2 75 22 133/69 100 06/22/16 08:00 97 T-piece 28 06/22/16 08:00 97 T-piece 28 06/22/16 04:00 97.4 74 20 126/73 100 06/22/16 00:00 96.4 69 18 111/70 99 06/21/16 20:00 97.0 77 20 114/66 98 06/21/16 19:00 65 06/21/16 18:50 71 06/21/16 17:53 98 T-piece 6.00 06/21/16 13:10 98 T-piece 28 06/21/16 13:10 98 T-piece 28 06/21/16 12:00 97.6 66 22 110/68 95 I/O 06/21/16 06/21/16 06/21/16 06/22/16 06/22/16 06/22/16 07:00 15:00 23:00 07:00 15:00 23:00 Output Total 800 ml 350 ml 600 ml 400 ml Balance -800 ml -350 ml -600 ml -400 ml Output Urine Total 800 ml 350 ml 600 ml 400 ml # Bowel Movements 1 1 1 1 Result Diagram: 06/19/16 0747 06/19/1647 Objective Remarks made eye contact to call of his name pupils equal, anicteric mild facial asymmetry no gag reflex neck supple no rigidity, tracheostomy in place lungs- no rales or wheezes regular rhythm abdomen- soft, good bowel sounds, PEG site- no signs of erythema lopez in place, no scrotal swelling, no inguinal rash sacral wound - quarter size open wound- about 2-3 inches deep, edges clean, wound packing mildly blood tinged- extremities- both feet withdrawal to stimulation Procedures 01/02/16 PEG placement 01/02/16 tracheostomy Date of Insertion: Jun 06, 2016 A/P Problem List: (1) CVA (cerebral vascular accident) ICD Code: I63.9 Status: Acute (2) A-fib ICD Code: I48.91 Status: Chronic (3) DM (diabetes mellitus) ICD Code: E11.9 Status: Chronic Assessment and Plan 60-year-old male with past medical history of paroxysmal atrial fibrillation, hypertension, stage III a non-Hodgkin's lymphoma status post a chemotherapy last year. He came to the hospital with altered mental status, facial droop. 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 Non verbal. Continue Keppra. Palliative care following. Chronic respiratory failure: Secondary to CVA, Status post tracheostomy. Continue pulmonary toilet and neb treatments as needed. Continue bronchodilators Xopenex, trach care, levsin prn, suctioning. A-fib: Continue rate control with Cardizem and metoprolol. Echocardiogram completed in November shows preserved EF. Coumadin discontinued secondary to bleeding. Continue with ASA and prophylactic heparin dose. If persistently without any bleeding, could consider restarting Coumadin. CBC- stable 06/19 HTN - stable History of Non-Hodgkin lymphoma: s/p brain biopsy on December 13, by Neurosurgery, Dr. Marin. Pathology consistent with acute infarct without evidence of lymphoma. Oncology signed off with no active oncology issues. DM (diabetes mellitus): HgbA1c 7.0. Continue Levemir 35u daily. Continue sliding scale coverage. Monitor accuchecks and adjust the regimen as needed. Decrease frequency to once a day fingersticks have been stable Decubitus ulcer stage IV: Continue Rocephin indefinitely (on lactinex) per ID until OM is ruled out with bone biopsy and watch for further bleeding (off warfarin due to bleeding which appears to have resolved). Continue dressing changes twice daily per wound care recommendations. Continue pressure relief measures, mattress, Turning and positioning. Patient's family declined a diverting colostomy. SN to call me in am when dressing changed GI/Nutrition: Continue Nepro at 55 cc/hr per dietitian recommendations. Free water flushes. Potassium supplement. DVT px - SCDs. d/w Mother at bedside and nurse Problem Qualifiers (1) DM (diabetes mellitus): Qualified Code: E11.9 - Type 2 diabetes mellitus without complications Soco Pickett MD Jun 22, 2016 11:16
[2016-06-22] MEDS: cefTRIAXone INJ 2,000 MG in SODIUM CHLORIDE 0.9% INJ 100 ML IV SCH (12:33)
[2016-06-22] MEDS: PARoxetine HCL SUSP 20 MG/10 ML UDC PEG SCH (19:40)
[2016-06-22] MEDS: INSULIN DETEMIR 100 UNITS/ML VIAL SQ SCH (20:55)
[2016-06-23] VITALS (12 sets, daily range): BP systolic 107–141; BP diastolic 61–86; PULSE 68–83; RESP 18–22; TEMP 97–98.3; O2SAT 97–99
[2016-06-23] MEDS: ACETAMINOPHEN/HYDROcodone 325 MG/5 MG TAB PEG SCH ×5 (00:04→21:39)
[2016-06-23] MEDS: FREE WATER TUBE SCH ×7 (00:04→23:34)
[2016-06-23] MEDS: ACETIC ACID 0.25% SOLN 1000 ML IRR BTL IRRIGATION SCH ×3 (05:26→21:40)
[2016-06-23] MEDS: HEPARIN SODIUM - SQ 10,000 UNITS/ML VIAL SQ SCH ×3 (05:26→21:38)
[2016-06-23] MEDS: levETIRAcetam 500 MG/5 ML UDC TUBE SCH ×2 (08:07→21:38)
[2016-06-23] MEDS: LACTOBACILLUS ACIDOPHILUS TAB PEG SCH ×3 (08:07→18:52)
[2016-06-23] MEDS: DILTIAZEM HCL 90 MG TAB PEG SCH ×4 (08:07→21:40)
[2016-06-23] MEDS: METOPROLOL TARTRATE 50 MG TAB PO SCH ×2 (08:07→21:40)
[2016-06-23] MEDS: POTASSIUM CHLORIDE 25 MEQ EFFERVESCENT TAB TUBE SCH (08:07)
[2016-06-23] MEDS: ASPIRIN 325 MG TAB TUBE SCH (08:07)
[2016-06-23] MEDS: RANITIDINE HCL SYRUP 150 MG/10 ML UDC PO SCH (08:07)
[2016-06-23] MEDS: ARTIFICIAL TEARS OPTH OINT 3.5 APPLIC/3.5 GM TUBO EACH EYE SCH ×2 (08:08→21:39)
[2016-06-23] MEDS: NYSTATIN 100,000 U/GM PWD 15 GM BTL TOPICAL SCH ×2 (08:08→21:00)
[2016-06-23] MEDS: cefTRIAXone INJ 2,000 MG in SODIUM CHLORIDE 0.9% INJ 100 ML IV SCH (12:46)
--- NOTE | 2016-06-23 13:25 | HHI.PR ---
Subjective Remarks Mom and exwife at bedside patient appeared to make eye contact when name called but not consistent Objective Vitals Vital Signs Date Time Temp Pulse Resp B/P Pulse Ox O2 Delivery O2 Flow Rate FiO2 06/23/16 11:23 T-Piece 6.00 28 Humidified 06/23/16 08:00 97.8 76 22 133/76 98 06/23/16 06:00 98.3 83 18 141/86 99 06/23/16 00:00 98.0 69 18 120/69 97 06/22/16 21:30 97.0 64 19 119/68 98 06/22/16 20:45 T-Piece 6.00 28 Humidified 06/22/16 19:27 73 06/22/16 16:55 74 06/22/16 16:20 96.6 67 22 119/75 97 I/O 06/22/16 06/22/16 06/22/16 06/23/16 06/23/16 06/23/16 06:59 14:59 22:59 06:59 14:59 22:59 Intake Total 920 ml 822 ml Output Total 400 ml 600 ml 400 ml 1225 ml Balance -400 ml -600 ml 520 ml -403 ml Intake Oral 0 ml 0 ml Tube Feeding 720 ml 422 ml Other 200 ml 400 ml Output Urine Total 400 ml 600 ml 400 ml 1225 ml # Bowel Movements 1 2 0 2 Result Diagram: 06/19/1647 06/19/16 0747 Objective Remarks eyeslooking around pupils equal, anicteric mild facial asymmetry no gag reflex neck supple no rigidity, tracheostomy in place lungs- no rales or wheezes regular rhythm abdomen- soft, good bowel sounds, PEG site- no signs of erythema lopez in place, no scrotal swelling, no inguinal rash sacral wound - quarter size open wound- about 2-3 inches deep, edges clean, wound packing mildly blood tinged- 06/22 exam extremities- both feet withdraws to stimulation Procedures 01/02/16 PEG placement 01/02/16 tracheostomy Urinary Catheter: Yes Lopez insert reason: Prolonged Immobilization Date of Insertion: Jun 06, 2016 A/P Problem List: (1) CVA (cerebral vascular accident) ICD Code: I63.9 Status: Acute (2) A-fib ICD Code: I48.91 Status: Chronic (3) DM (diabetes mellitus) ICD Code: E11.9 Status: Chronic Assessment and Plan 60-year-old male with past medical history of paroxysmal atrial fibrillation, hypertension, stage III a non-Hodgkin's lymphoma status post a chemotherapy last year. He came to the hospital with altered mental status, facial droop. 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 Non verbal. Continue Keppra. Palliative care following. Chronic respiratory failure: Secondary to CVA, Status post tracheostomy. Continue pulmonary toilet and neb treatments as needed. Continue bronchodilators Xopenex, trach care, levsin prn, suctioning. A-fib: Continue rate control with Cardizem and metoprolol. Echocardiogram completed in November shows preserved EF. Coumadin discontinued secondary to bleeding. Continue with ASA and prophylactic heparin dose. If persistently without any bleeding, could consider restarting Coumadin. CBC- stable 06/19 HTN - stable History of Non-Hodgkin lymphoma: s/p brain biopsy on December 13, by Neurosurgery, Dr. Marin. Pathology consistent with acute infarct without evidence of lymphoma. Oncology signed off with no active oncology issues. DM (diabetes mellitus): HgbA1c 7.0. Continue Levemir 35u daily. Continue sliding scale coverage. Monitor accuchecks and adjust the regimen as needed. Decrease frequency to once a day fingersticks have been stable Decubitus ulcer stage IV: Continue Rocephin indefinitely (on lactinex) per ID until OM is ruled out with bone biopsy and watch for further bleeding (off warfarin due to bleeding which appears to have resolved). Continue dressing changes twice daily per wound care recommendations. Continue pressure relief measures, mattress, Turning and positioning. Patient's family declined a diverting colostomy. SN to call me in am when dressing changed GI/Nutrition: Continue Nepro at 55 cc/hr per dietitian recommendations. Free water flushes. Potassium supplement. DVT px - SCDs. d/w Mother and exwife at bedside 06/23 Problem Qualifiers (1) DM (diabetes mellitus): Qualified Code: E11.9 - Type 2 diabetes mellitus without complications Soco Pickett MD Jun 23, 2016 13:25
[2016-06-23] MEDS: PARoxetine HCL SUSP 20 MG/10 ML UDC PEG SCH (18:51)
[2016-06-23] MEDS: INSULIN DETEMIR 100 UNITS/ML VIAL SQ SCH (21:00)
[2016-06-24] VITALS (10 sets, daily range): BP systolic 106–130; BP diastolic 63–77; PULSE 71–81; RESP 16–22; TEMP 97.3–98.8; O2SAT 97–99
[2016-06-24] MEDS: FREE WATER TUBE SCH ×5 (04:00→20:00)
[2016-06-24] MEDS: ACETAMINOPHEN/HYDROcodone 325 MG/5 MG TAB PEG SCH ×3 (06:00→18:04)
[2016-06-24] MEDS: ACETIC ACID 0.25% SOLN 1000 ML IRR BTL IRRIGATION SCH ×3 (06:00→20:43)
[2016-06-24] MEDS: HEPARIN SODIUM - SQ 10,000 UNITS/ML VIAL SQ SCH ×3 (06:02→20:42)
[2016-06-24] MEDS: METOPROLOL TARTRATE 50 MG TAB PO SCH ×2 (08:09→20:43)
[2016-06-24] MEDS: DILTIAZEM HCL 90 MG TAB PEG SCH ×4 (08:09→20:43)
[2016-06-24] MEDS: POTASSIUM CHLORIDE 25 MEQ EFFERVESCENT TAB TUBE SCH (08:09)
[2016-06-24] MEDS: levETIRAcetam 500 MG/5 ML UDC TUBE SCH ×2 (08:09→20:42)
[2016-06-24] MEDS: RANITIDINE HCL SYRUP 150 MG/10 ML UDC PO SCH (08:09)
[2016-06-24] MEDS: LACTOBACILLUS ACIDOPHILUS TAB PEG SCH ×3 (08:09→18:03)
[2016-06-24] MEDS: ASPIRIN 325 MG TAB TUBE SCH (08:09)
[2016-06-24] MEDS: ARTIFICIAL TEARS OPTH OINT 3.5 APPLIC/3.5 GM TUBO EACH EYE SCH ×2 (08:10→20:43)
[2016-06-24] MEDS: NYSTATIN 100,000 U/GM PWD 15 GM BTL TOPICAL SCH ×2 (08:10→20:43)
[2016-06-24] MEDS: cefTRIAXone INJ 2,000 MG in SODIUM CHLORIDE 0.9% INJ 100 ML IV SCH (11:31)
[2016-06-24] MEDS: PARoxetine HCL SUSP 20 MG/10 ML UDC PEG SCH (18:04)
[2016-06-24] MEDS: INSULIN DETEMIR 100 UNITS/ML VIAL SQ SCH (20:43)
--- NOTE | 2016-06-24 22:51 | HHI.PR ---
Subjective Remarks patient seen today around 1 PM. Blinks on command, however not consistently Objective Vital Signs Date Time Temp Pulse Resp B/P Pulse Ox O2 Delivery O2 Flow Rate FiO2 06/24/16 20:47 97.7 81 16 126/75 98 06/24/16 19:00 75 06/24/16 17:08 98.3 80 20 126/77 97 06/24/16 11:30 98.8 76 22 106/63 97 06/24/16 09:40 T-Piece 6.00 28 Humidified 06/24/16 08:52 98 T-piece 6.00 28 06/24/16 08:45 97.3 79 20 127/77 99 06/24/16 07:00 98.2 78 19 130/64 97 06/24/16 00:00 97.7 80 18 125/67 98 06/23/16 23:35 T-Piece 6.00 28 Humidified I/O 06/23/16 06/23/16 06/23/16 06/24/16 06/24/16 06/24/16 07:00 15:00 23:00 07:00 15:00 23:00 Intake Total 822 ml 0 ml 0 ml Output Total 1225 ml 950 ml 500 ml 1000 ml 550 ml 350 ml Balance -403 ml -950 ml -500 ml -1000 ml -550 ml -350 ml Intake Oral 0 ml 0 ml 0 ml Tube Feeding 422 ml Other 400 ml Output Urine Total 1225 ml 950 ml 500 ml 1000 ml 550 ml 350 ml # Bowel Movements 2 1 0 4 2 1 Procedures Procedures 01/02/16 PEG placement 01/02/16 tracheostomy Objective Remarks GENERAL: lying in bed. patient obeys commands to blink. SKIN: Warm and dry. HEAD: Normocephalic. EYES: No scleral icterus. No injection or drainage. NECK: Supple, trachea midline. No JVD or lymphadenopathy. CARDIOVASCULAR: Regular rate and rhythm without murmurs, gallops, or rubs. RESPIRATORY: Breath sounds equal bilaterally. No accessory muscle use. GASTROINTESTINAL: Abdomen soft, non-tender, nondistended. PEG tube in place. No surrounding erythema. MUSCULOSKELETAL: No cyanosis, or edema. BACK: Nontender without obvious deformity. No CVA tenderness. A/P Assessment and Plan 60-year-old male with past medical history of paroxysmal atrial fibrillation, hypertension, stage III a non-Hodgkin's lymphoma status post a chemotherapy last year. He came to the hospital with altered mental status, facial droop. 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 Non verbal. Continue Keppra. Palliative care following. Chronic respiratory failure: Secondary to CVA, Status post tracheostomy. Continue pulmonary toilet and neb treatments as needed. Continue bronchodilators Xopenex, trach care, levsin prn, suctioning. A-fib: Continue rate control with Cardizem and metoprolol. Echocardiogram completed in November shows preserved EF. Coumadin discontinued secondary to bleeding. Continue with ASA and prophylactic heparin dose. If persistently without any bleeding, could consider restarting Coumadin. CBC- stable 06/19 - Heart rate stable. Continue monitor. HTN - stable History of Non-Hodgkin lymphoma: s/p brain biopsy on December 13, by Neurosurgery, Dr. Marin. Pathology consistent with acute infarct without evidence of lymphoma. Oncology signed off with no active oncology issues. DM (diabetes mellitus): HgbA1c 7.0. Continue Levemir 35u daily. Continue sliding scale coverage. Monitor accuchecks and adjust the regimen as needed. - Blood sugar stable. Continue monitor Decubitus ulcer stage IV: Continue Rocephin indefinitely (on lactinex) per ID until OM is ruled out with bone biopsy and watch for further bleeding (off warfarin due to bleeding which appears to have resolved). Continue dressing changes twice daily per wound care recommendations. Continue pressure relief measures, mattress, Turning and positioning. Patient's family declined a diverting colostomy. - Continue wound care. GI/Nutrition: Continue Nepro at 55 cc/hr per dietitian recommendations. Free water flushes. Potassium supplement. DVT px - SCDs. Discharge Planning appreciate case management assistance. Ramiro Rucker MD Jun 24, 2016 22:51
[2016-06-25] VITALS (9 sets, daily range): BP systolic 115–145; BP diastolic 65–82; PULSE 67–80; RESP 18–20; TEMP 97.2–98.8; O2SAT 97–99
[2016-06-25] MEDS: FREE WATER TUBE SCH ×6 (04:00→20:00)
[2016-06-25] MEDS: HEPARIN SODIUM - SQ 10,000 UNITS/ML VIAL SQ SCH ×3 (05:01→22:20)
[2016-06-25] MEDS: ACETAMINOPHEN/HYDROcodone 325 MG/5 MG TAB PEG SCH ×4 (05:04→18:42)
[2016-06-25] MEDS: ACETIC ACID 0.25% SOLN 1000 ML IRR BTL IRRIGATION SCH ×3 (05:05→22:20)
[2016-06-25] MEDS: LACTOBACILLUS ACIDOPHILUS TAB PEG SCH ×3 (08:53→18:41)
[2016-06-25] MEDS: DILTIAZEM HCL 90 MG TAB PEG SCH ×4 (08:53→22:20)
[2016-06-25] MEDS: RANITIDINE HCL SYRUP 150 MG/10 ML UDC PO SCH (08:54)
[2016-06-25] MEDS: POTASSIUM CHLORIDE 25 MEQ EFFERVESCENT TAB TUBE SCH (08:54)
[2016-06-25] MEDS: METOPROLOL TARTRATE 50 MG TAB PO SCH ×2 (08:54→22:19)
[2016-06-25] MEDS: ASPIRIN 325 MG TAB TUBE SCH (08:54)
[2016-06-25] MEDS: NYSTATIN 100,000 U/GM PWD 15 GM BTL TOPICAL SCH ×2 (08:57→22:22)
[2016-06-25] MEDS: levETIRAcetam 500 MG/5 ML UDC TUBE SCH ×2 (09:03→22:20)
[2016-06-25] MEDS: ARTIFICIAL TEARS OPTH OINT 3.5 APPLIC/3.5 GM TUBO EACH EYE SCH ×2 (09:04→22:21)
[2016-06-25] MEDS: cefTRIAXone INJ 2,000 MG in SODIUM CHLORIDE 0.9% INJ 100 ML IV SCH (12:00)
[2016-06-25] MEDS: PARoxetine HCL SUSP 20 MG/10 ML UDC PEG SCH (18:42)
[2016-06-25] MEDS: INSULIN DETEMIR 100 UNITS/ML VIAL SQ SCH (22:21)
--- NOTE | 2016-06-25 22:41 | HHI.PR ---
Subjective Remarks patient seen today around noon. No acute changes per nursing. Discussed with family at bedside. Family was concerned about systolic blood pressure of 99 one week ago. Reassured family that the pressure has been quite acceptable over the past week , and that systolic blood pressure of 99 is considered acceptable as well. Objective Vital Signs Date Time Temp Pulse Resp B/P Pulse Ox O2 Delivery O2 Flow Rate FiO2 06/25/16 20:00 97.7 71 18 121/71 98 06/25/16 17:57 97 T-piece 6.00 28 06/25/16 16:00 97 T-Piece 6.00 28 Humidified 06/25/16 16:00 97.2 68 20 115/65 97 06/25/16 14:06 18 06/25/16 13:52 98 T-piece 28 06/25/16 13:52 98 T-piece 28 06/25/16 12:20 97.4 70 20 133/82 98 06/25/16 09:13 98.8 72 20 138/82 99 06/25/16 08:05 80 06/25/16 04:00 97.9 75 18 145/79 97 I/O 06/24/16 06/24/16 06/24/16 06/25/16 06/25/16 06/25/16 07:00 15:00 23:00 07:00 15:00 23:00 Intake Total 0 ml Output Total 1000 ml 550 ml 1350 ml 200 ml 550 ml 350 ml Balance -1000 ml -550 ml -1350 ml -200 ml -550 ml -350 ml Intake Oral 0 ml Output Urine Total 1000 ml 550 ml 1350 ml 200 ml 550 ml 350 ml # Bowel Movements 4 2 1 2 Procedures Procedures 01/02/16 PEG placement 01/02/16 tracheostomy Objective Remarks GENERAL: lying in bed. patient obeys commands to blink, however this is variable.exam unchanged. SKIN: Warm and dry. HEAD: Normocephalic. EYES: No scleral icterus. No injection or drainage. NECK: Supple, trachea midline. No JVD or lymphadenopathy. CARDIOVASCULAR: Regular rate and rhythm without murmurs, gallops, or rubs. RESPIRATORY: Breath sounds equal bilaterally. No accessory muscle use. GASTROINTESTINAL: Abdomen soft, non-tender, nondistended. PEG tube in place. No surrounding erythema. MUSCULOSKELETAL: No cyanosis, or edema. BACK: Nontender without obvious deformity. No CVA tenderness. A/P Assessment and Plan 06/25. Patient seen and examined. Discussed with family. No changes on exam. Continue supportive care. 60-year-old male with past medical history of paroxysmal atrial fibrillation, hypertension, stage III a non-Hodgkin's lymphoma status post a chemotherapy last year. He came to the hospital with altered mental status, facial droop. 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 Non verbal. Continue Keppra. Palliative care following. Chronic respiratory failure: Secondary to CVA, Status post tracheostomy. Continue pulmonary toilet and neb treatments as needed. Continue bronchodilators Xopenex, trach care, levsin prn, suctioning. A-fib: Continue rate control with Cardizem and metoprolol. Echocardiogram completed in November shows preserved EF. Coumadin discontinued secondary to bleeding. Continue with ASA and prophylactic heparin dose. If persistently without any bleeding, could consider restarting Coumadin. CBC- stable 06/19 - Heart rate stable. Continue monitor. HTN - stable History of Non-Hodgkin lymphoma: s/p brain biopsy on December 13, by Neurosurgery, Dr. Marin. Pathology consistent with acute infarct without evidence of lymphoma. Oncology signed off with no active oncology issues. DM (diabetes mellitus): HgbA1c 7.0. Continue Levemir 35u daily. Continue sliding scale coverage. Monitor accuchecks and adjust the regimen as needed. - Blood sugar stable. Continue monitor Decubitus ulcer stage IV: Continue Rocephin indefinitely (on lactinex) per ID until OM is ruled out with bone biopsy and watch for further bleeding (off warfarin due to bleeding which appears to have resolved). Continue dressing changes twice daily per wound care recommendations. Continue pressure relief measures, mattress, Turning and positioning. Patient's family declined a diverting colostomy. - Continue wound care. GI/Nutrition: Continue Nepro at 55 cc/hr per dietitian recommendations. Free water flushes. Potassium supplement. DVT px - SCDs. Discharge Planning appreciate case management assistance. Ramiro Rucker MD Jun 25, 2016 22:40
[2016-06-26] VITALS (8 sets, daily range): BP systolic 103–130; BP diastolic 64–78; PULSE 60–85; RESP 16–22; TEMP 96.5–97.9; O2SAT 96–99
[2016-06-26] MEDS: FREE WATER TUBE SCH ×7 (03:34→23:18)
[2016-06-26] MEDS: HEPARIN SODIUM - SQ 10,000 UNITS/ML VIAL SQ SCH ×3 (05:04→23:16)
[2016-06-26] MEDS: ACETAMINOPHEN/HYDROcodone 325 MG/5 MG TAB PEG SCH ×5 (05:04→23:15)
[2016-06-26] MEDS: ACETIC ACID 0.25% SOLN 1000 ML IRR BTL IRRIGATION SCH ×3 (05:05→23:19)
[2016-06-26] MEDS: INSULIN ASPART SUPPLEMENTAL SCALE SQ SCH (08:27)
[2016-06-26] MEDS: METOPROLOL TARTRATE 50 MG TAB PO SCH ×2 (08:29→23:16)
[2016-06-26] MEDS: ASPIRIN 325 MG TAB TUBE SCH (08:30)
[2016-06-26] MEDS: POTASSIUM CHLORIDE 25 MEQ EFFERVESCENT TAB TUBE SCH (08:30)
[2016-06-26] MEDS: DILTIAZEM HCL 90 MG TAB PEG SCH ×4 (08:30→23:15)
[2016-06-26] MEDS: LACTOBACILLUS ACIDOPHILUS TAB PEG SCH ×3 (08:30→18:23)
[2016-06-26] MEDS: RANITIDINE HCL SYRUP 150 MG/10 ML UDC PO SCH (08:30)
[2016-06-26] MEDS: levETIRAcetam 500 MG/5 ML UDC TUBE SCH ×2 (08:30→23:15)
[2016-06-26] MEDS: NYSTATIN 100,000 U/GM PWD 15 GM BTL TOPICAL SCH ×2 (08:31→23:17)
[2016-06-26] MEDS: ARTIFICIAL TEARS OPTH OINT 3.5 APPLIC/3.5 GM TUBO EACH EYE SCH ×2 (08:31→23:18)
[2016-06-26] MEDS: cefTRIAXone INJ 2,000 MG in SODIUM CHLORIDE 0.9% INJ 100 ML IV SCH (12:15)
[2016-06-26] MEDS: PARoxetine HCL SUSP 20 MG/10 ML UDC PEG SCH (18:23)
[2016-06-26] MEDS: INSULIN DETEMIR 100 UNITS/ML VIAL SQ SCH (21:00)
--- NOTE | 2016-06-26 22:49 | HHI.PR ---
Subjective Remarks patient seen today around 11 AM. No acute changes per nursing. Continues nonverbal. Objective Vital Signs Date Time Temp Pulse Resp B/P Pulse Ox O2 Delivery O2 Flow Rate FiO2 06/26/16 20:34 97.9 72 19 115/70 97 06/26/16 19:42 20 06/26/16 16:06 97.8 76 22 121/76 96 06/26/16 12:17 97.5 65 22 103/64 99 06/26/16 12:15 99 T-Piece 6.00 28 06/26/16 11:00 99 T-piece 5.00 28 06/26/16 11:00 99 T-piece 5.00 28 06/26/16 08:05 97.8 74 20 127/78 98 06/26/16 08:05 68 06/26/16 04:00 97.4 69 16 130/74 98 06/26/16 00:00 96.5 60 16 112/69 97 06/25/16 23:14 67 I/O 06/25/16 06/25/16 06/25/16 06/26/16 06/26/16 06/26/16 06:59 14:59 22:59 06:59 14:59 22:59 Intake Total 1128 ml 100 ml 1187 ml Output Total 200 ml 550 ml 450 ml 700 ml Balance -200 ml -550 ml -450 ml 1128 ml -600 ml 1187 ml IV Total 100 ml Tube Feeding 528 ml 587 ml Other 600 ml 600 ml Output Urine Total 200 ml 550 ml 450 ml 700 ml # Bowel Movements 2 3 Procedures Procedures 01/02/16 PEG placement 01/02/16 tracheostomy Objective Remarks GENERAL: lying in bed. patient obeys commands to blink, however this is variable.exam again unchanged. SKIN: Warm and dry. HEAD: Normocephalic. EYES: No scleral icterus. No injection or drainage. NECK: Supple, trachea midline. No JVD or lymphadenopathy. CARDIOVASCULAR: Regular rate and rhythm without murmurs, gallops, or rubs. RESPIRATORY: Breath sounds equal bilaterally. No accessory muscle use. GASTROINTESTINAL: Abdomen soft, non-tender, nondistended. PEG tube in place. No surrounding erythema. MUSCULOSKELETAL: No cyanosis, or edema. BACK: Nontender without obvious deformity. No CVA tenderness. A/P Assessment and Plan 06/26. Patient seen and examined. No changes on exam. Continue supportive care. 60-year-old male with past medical history of paroxysmal atrial fibrillation, hypertension, stage III a non-Hodgkin's lymphoma status post a chemotherapy last year. He came to the hospital with altered mental status, facial droop. 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 Non verbal. Continue Keppra. Palliative care following. Chronic respiratory failure: Secondary to CVA, Status post tracheostomy. Continue pulmonary toilet and neb treatments as needed. Continue bronchodilators Xopenex, trach care, levsin prn, suctioning. A-fib: Continue rate control with Cardizem and metoprolol. Echocardiogram completed in November shows preserved EF. Coumadin discontinued secondary to bleeding. Continue with ASA and prophylactic heparin dose. If persistently without any bleeding, could consider restarting Coumadin. CBC- stable 06/19 - Heart rate stable. Continue monitor. HTN - stable History of Non-Hodgkin lymphoma: s/p brain biopsy on December 13, by Neurosurgery, Dr. Marin. Pathology consistent with acute infarct without evidence of lymphoma. Oncology signed off with no active oncology issues. DM (diabetes mellitus): HgbA1c 7.0. Continue Levemir 35u daily. Continue sliding scale coverage. Monitor accuchecks and adjust the regimen as needed. - Blood sugar stable. Continue monitor Decubitus ulcer stage IV: Continue Rocephin indefinitely (on lactinex) per ID until OM is ruled out with bone biopsy and watch for further bleeding (off warfarin due to bleeding which appears to have resolved). Continue dressing changes twice daily per wound care recommendations. Continue pressure relief measures, mattress, Turning and positioning. Patient's family declined a diverting colostomy. - Continue wound care. GI/Nutrition: Continue Nepro at 55 cc/hr per dietitian recommendations. Free water flushes. Potassium supplement. DVT px - SCDs. Discharge Planning appreciate case management assistance. Ramiro Rucker MD Jun 26, 2016 22:49
[2016-06-27] VITALS (7 sets, daily range): BP systolic 105–123; BP diastolic 61–90; PULSE 66–87; RESP 20–22; TEMP 96.6–98.5; O2SAT 97–100
[2016-06-27] MEDS: FREE WATER TUBE SCH ×6 (04:00→23:48)
[2016-06-27] MEDS: HEPARIN SODIUM - SQ 10,000 UNITS/ML VIAL SQ SCH ×3 (05:09→22:16)
[2016-06-27] MEDS: ACETAMINOPHEN/HYDROcodone 325 MG/5 MG TAB PEG SCH ×4 (05:09→23:41)
[2016-06-27] MEDS: ACETIC ACID 0.25% SOLN 1000 ML IRR BTL IRRIGATION SCH ×3 (05:10→22:19)
[2016-06-27 07:37] LABS: BASOPHIL # 0.1 TH/MM3 (0-0.2); BASOPHIL % 1.2 % (0.0-2.0); EOSINOPHIL # 0.2 TH/MM3 (0-0.4); EOSINOPHIL % 3.6 % (0.0-4.0); HEMATOCRIT 31.4 % (39.0-51.0); LYMPH % 20.9 % (9.0-44.0); LYMPHOCYTE # 0.9 TH/MM3 (1.0-4.8); MEAN CELL VOLUME 75.1 FL (80.0-100.0); MEAN CORPUSCULAR HEMOGLOBIN 23.3 PG (27.0-34.0); MEAN CORPUSCULAR HGB CONC 31.1 % (32.0-36.0); NEUT % 66.3 % (16.0-70.0); PLATELET COUNT 192 TH/MM3 (150-450); RED BLOOD COUNT 4.18 MIL/MM3 (4.50-5.90); RED CELL DISTRIBUTION WIDTH 20.8 % (11.6-17.2); WHITE BLOOD COUNT 4.5 TH/MM3 (4.0-11.0)
[2016-06-27 07:58] LABS: HEMO FLAGS AUTO DIFF
[2016-06-27 07:59] LABS: BICARBONATE 29.1 MEQ/L (21.0-32.0)
[2016-06-27] MEDS: levETIRAcetam 500 MG/5 ML UDC TUBE SCH ×2 (08:22→22:15)
[2016-06-27] MEDS: RANITIDINE HCL SYRUP 150 MG/10 ML UDC PO SCH (08:22)
[2016-06-27] MEDS: DILTIAZEM HCL 90 MG TAB PEG SCH ×4 (08:22→22:15)
[2016-06-27] MEDS: METOPROLOL TARTRATE 50 MG TAB PO SCH ×2 (08:22→22:15)
[2016-06-27] MEDS: ASPIRIN 325 MG TAB TUBE SCH (08:22)
[2016-06-27] MEDS: POTASSIUM CHLORIDE 25 MEQ EFFERVESCENT TAB TUBE SCH (08:22)
[2016-06-27] MEDS: LACTOBACILLUS ACIDOPHILUS TAB PEG SCH ×3 (08:22→18:09)
[2016-06-27] MEDS: ARTIFICIAL TEARS OPTH OINT 3.5 APPLIC/3.5 GM TUBO EACH EYE SCH ×2 (08:23→22:18)
[2016-06-27] MEDS: NYSTATIN 100,000 U/GM PWD 15 GM BTL TOPICAL SCH ×2 (08:23→22:18)
[2016-06-27 08:46] LABS: SCAN/DIFF AUTO DIFF CONFIRMED
[2016-06-27] MEDS: cefTRIAXone INJ 2,000 MG in SODIUM CHLORIDE 0.9% INJ 100 ML IV SCH (11:52)
[2016-06-27] MEDS: PARoxetine HCL SUSP 20 MG/10 ML UDC PEG SCH (18:09)
[2016-06-27] MEDS: INSULIN ASPART SUPPLEMENTAL SCALE SQ SCH (18:12)
[2016-06-27] MEDS: ACETAMINOPHEN/HYDROcodone 325 MG/5 MG TAB TUBE PRN (22:16)
[2016-06-27] MEDS: SODIUM CHLORIDE 0.9% FLUSH 5 ML FLUSH IVF PRN (22:16)
[2016-06-27] MEDS: INSULIN DETEMIR 100 UNITS/ML VIAL SQ SCH (22:17)
--- NOTE | 2016-06-27 23:39 | HHI.PR ---
Subjective Remarks seen today around noon. Sleeping, family does not want me awake him up. Discussed reorientation with family. Keep windows open during the day, lites on during the day. Everything off at night. Objective Vital Signs Date Time Temp Pulse Resp B/P Pulse Ox O2 Delivery O2 Flow Rate FiO2 06/27/16 20:00 97.4 80 22 111/69 97 06/27/16 19:09 22 06/27/16 16:05 97.0 71 22 112/68 100 06/27/16 12:25 97 T-piece 28 06/27/16 12:25 97 T-piece 28 06/27/16 12:06 97.5 66 20 105/61 97 06/27/16 08:22 Trach Collar T-Piece 06/27/16 08:05 97.5 73 20 120/90 97 06/27/16 04:00 96.6 87 20 123/72 99 06/27/16 04:00 T-Piece 06/27/16 00:21 98.5 75 20 109/69 99 06/27/16 00:21 T-Piece I/O 06/26/16 06/26/16 06/26/16 06/27/16 06/27/16 06/27/16 07:00 15:00 23:00 07:00 15:00 23:00 Intake Total 1128 ml 100 ml 1187 ml Output Total 700 ml 400 ml 550 ml 800 ml Balance 1128 ml -600 ml 787 ml -550 ml -800 ml IV Total 100 ml Tube Feeding 528 ml 587 ml Other 600 ml 600 ml Output Urine Total 700 ml 400 ml 550 ml 800 ml # Bowel Movements 3 0 1 4 Result Diagram: 06/27/16 0720 06/27/16 07 Procedures Procedures 01/02/16 PEG placement 01/02/16 tracheostomy Objective Remarks GENERAL: lying in bed. eyes closed.asleep. Appears comfortable. SKIN: Warm and dry. HEAD: Normocephalic. EYES: No scleral icterus. No injection or drainage. NECK: Supple, trachea midline. No JVD . CARDIOVASCULAR: Regular rate and rhythm without murmurs, gallops, or rubs. RESPIRATORY: Breath sounds equal bilaterally. No accessory muscle use. GASTROINTESTINAL: Abdomen soft, non-tender, nondistended. PEG tube in place. No surrounding erythema. MUSCULOSKELETAL: No cyanosis, or edema. BACK: Nontender without obvious deformity. No CVA tenderness. A/P Assessment and Plan 06/27. Patient seen and examined. patient sleep, family wanted him to rest after being awake for some time. Discussed reorientation with family. Window shades open during the day. Lites off the night. Continue supportive care. 60-year-old male with past medical history of paroxysmal atrial fibrillation, hypertension, stage III a non-Hodgkin's lymphoma status post a chemotherapy last year. He came to the hospital with altered mental status, facial droop. 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 Non verbal. Continue Keppra. Palliative care following. Chronic respiratory failure: Secondary to CVA, Status post tracheostomy. Continue pulmonary toilet and neb treatments as needed. Continue bronchodilators Xopenex, trach care, levsin prn, suctioning. A-fib: Continue rate control with Cardizem and metoprolol. Echocardiogram completed in November shows preserved EF. Coumadin discontinued secondary to bleeding. Continue with ASA and prophylactic heparin dose. If persistently without any bleeding, could consider restarting Coumadin. CBC- stable 06/19 - Heart rate stable. Continue monitor. HTN - stable History of Non-Hodgkin lymphoma: s/p brain biopsy on December 13, by Neurosurgery, Dr. Marin. Pathology consistent with acute infarct without evidence of lymphoma. Oncology signed off with no active oncology issues. DM (diabetes mellitus): HgbA1c 7.0. Continue Levemir 35u daily. Continue sliding scale coverage. Monitor accuchecks and adjust the regimen as needed. - Blood sugar stable. Continue monitor Decubitus ulcer stage IV: Continue Rocephin indefinitely (on lactinex) per ID until OM is ruled out with bone biopsy and watch for further bleeding (off warfarin due to bleeding which appears to have resolved). Continue dressing changes twice daily per wound care recommendations. Continue pressure relief measures, mattress, Turning and positioning. Patient's family declined a diverting colostomy. - Continue wound care. GI/Nutrition: Continue Nepro at 55 cc/hr per dietitian recommendations. Free water flushes. Potassium supplement. DVT px - SCDs. Discharge Planning appreciate case management assistance. Ramiro Rucker MD Jun 27, 2016 23:39
[2016-06-28] VITALS (11 sets, daily range): BP systolic 102–123; BP diastolic 64–81; PULSE 68–78; RESP 20–22; TEMP 96.3–97.8; O2SAT 93–100
[2016-06-28] MEDS: FREE WATER TUBE SCH ×5 (03:42→20:00)
[2016-06-28] MEDS: HEPARIN SODIUM - SQ 10,000 UNITS/ML VIAL SQ SCH ×3 (06:27→21:41)
[2016-06-28] MEDS: ACETIC ACID 0.25% SOLN 1000 ML IRR BTL IRRIGATION SCH ×3 (06:28→21:41)
[2016-06-28] MEDS: ACETAMINOPHEN/HYDROcodone 325 MG/5 MG TAB PEG SCH ×3 (06:28→18:00)
[2016-06-28] MEDS: POTASSIUM CHLORIDE 25 MEQ EFFERVESCENT TAB TUBE SCH (08:44)
[2016-06-28] MEDS: LACTOBACILLUS ACIDOPHILUS TAB PEG SCH ×3 (08:45→18:00)
[2016-06-28] MEDS: METOPROLOL TARTRATE 50 MG TAB PO SCH ×2 (08:45→21:39)
[2016-06-28] MEDS: ASPIRIN 325 MG TAB TUBE SCH (08:45)
[2016-06-28] MEDS: RANITIDINE HCL SYRUP 150 MG/10 ML UDC PO SCH (08:46)
[2016-06-28] MEDS: levETIRAcetam 500 MG/5 ML UDC TUBE SCH ×2 (08:46→21:39)
[2016-06-28] MEDS: ARTIFICIAL TEARS OPTH OINT 3.5 APPLIC/3.5 GM TUBO EACH EYE SCH ×2 (08:47→21:40)
[2016-06-28] MEDS: NYSTATIN 100,000 U/GM PWD 15 GM BTL TOPICAL SCH ×2 (08:47→21:40)
[2016-06-28] MEDS: DILTIAZEM HCL 90 MG TAB PEG SCH ×4 (08:47→21:39)
[2016-06-28] MEDS: cefTRIAXone INJ 2,000 MG in SODIUM CHLORIDE 0.9% INJ 100 ML IV SCH (13:13)
[2016-06-28] MEDS: PARoxetine HCL SUSP 20 MG/10 ML UDC PEG SCH (18:38)
[2016-06-28] MEDS: INSULIN DETEMIR 100 UNITS/ML VIAL SQ SCH (21:39)
--- NOTE | 2016-06-28 23:07 | HHI.PR ---
Subjective Remarks patient seen today around 1 PM. Family at bedside. Patient is nonverbal as before. No acute changes per nursing. Sacral ulcer slightly improved over long-term. Objective Vital Signs Date Time Temp Pulse Resp B/P Pulse Ox O2 Delivery O2 Flow Rate FiO2 06/28/16 21:42 74 20 118/73 98 06/28/16 20:00 97.8 68 20 102/64 93 06/28/16 18:26 99 T-piece 6.00 28 06/28/16 16:00 97.5 70 20 117/69 99 06/28/16 16:00 T-Piece 28 06/28/16 12:00 96.3 68 20 123/81 99 06/28/16 11:50 96 T-piece 28 06/28/16 09:00 70 06/28/16 09:00 97 T-Piece 28 06/28/16 08:50 96 T-piece 28 06/28/16 08:25 97.4 75 21 117/69 98 06/28/16 04:00 97.3 78 22 115/72 96 06/28/16 00:40 20 06/28/16 00:00 97.0 71 22 105/64 100 06/27/16 23:15 20 I/O 06/27/16 06/27/16 06/27/16 06/28/16 06/28/16 06/28/16 07:00 15:00 23:00 07:00 15:00 23:00 Intake Total 955 ml 1040 ml 400 ml 200 ml Output Total 550 ml 800 ml 0 ml 550 ml 1000 ml Balance -550 ml -800 ml 955 ml 490 ml -600 ml 200 ml Tube Feeding 655 ml 440 ml Other 300 ml 600 ml 400 ml 200 ml Output Urine Total 550 ml 800 ml 550 ml 1000 ml Tube Feeding Residual Discard 0 ml # Bowel Movements 1 4 4 2 Result Diagram: 06/27/1620 06/27/16719 Procedures Procedures 01/02/16 PEG placement 01/02/16 tracheostomy Objective Remarks GENERAL: lying in bed. eyesopen, making eye contact. Appears comfortable. SKIN: Warm and dry. HEAD: Normocephalic. EYES: No scleral icterus. No injection or drainage. NECK: Supple, trachea midline. No JVD . CARDIOVASCULAR: Regular rate and rhythm without murmurs, gallops, or rubs. RESPIRATORY: Breath sounds equal bilaterally. No accessory muscle use. GASTROINTESTINAL: Abdomen soft, non-tender, nondistended. PEG tube in place. No surrounding erythema. MUSCULOSKELETAL: No cyanosis, or edema. BACK: Nontender without obvious deformity. No CVA tenderness. A/P Assessment and Plan 06/28. Patient seen and examined. no acute changes. Continue day/night reorientation to prevent daytime somnolence. 60-year-old male with past medical history of paroxysmal atrial fibrillation, hypertension, stage III a non-Hodgkin's lymphoma status post a chemotherapy last year. He came to the hospital with altered mental status, facial droop. 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 Non verbal. Continue Keppra. Palliative care following. Chronic respiratory failure: Secondary to CVA, Status post tracheostomy. Continue pulmonary toilet and neb treatments as needed. Continue bronchodilators Xopenex, trach care, levsin prn, suctioning. A-fib: Continue rate control with Cardizem and metoprolol. Echocardiogram completed in November shows preserved EF. Coumadin discontinued secondary to bleeding. Continue with ASA and prophylactic heparin dose. If persistently without any bleeding, could consider restarting Coumadin. CBC- stable 06/19 - Heart rate stable. Continue monitor. HTN - stable History of Non-Hodgkin lymphoma: s/p brain biopsy on December 13, by Neurosurgery, Dr. Marin. Pathology consistent with acute infarct without evidence of lymphoma. Oncology signed off with no active oncology issues. DM (diabetes mellitus): HgbA1c 7.0. Continue Levemir 35u daily. Continue sliding scale coverage. Monitor accuchecks and adjust the regimen as needed. - Blood sugar stable. Continue monitor Decubitus ulcer stage IV: Continue Rocephin indefinitely (on lactinex) per ID until OM is ruled out with bone biopsy and watch for further bleeding (off warfarin due to bleeding which appears to have resolved). Continue dressing changes twice daily per wound care recommendations. Continue pressure relief measures, mattress, Turning and positioning. Patient's family declined a diverting colostomy. - Continue wound care. GI/Nutrition: Continue Nepro at 55 cc/hr per dietitian recommendations. Free water flushes. Potassium supplement. DVT px - SCDs. Discharge Planning appreciate case management assistance. Ramiro Rucker MD Jun 28, 2016 23:07
[2016-06-29] VITALS (11 sets, daily range): BP systolic 114–135; BP diastolic 67–75; PULSE 62–78; RESP 18–20; TEMP 95.6–98.9; O2SAT 92–100
[2016-06-29] MEDS: ACETAMINOPHEN/HYDROcodone 325 MG/5 MG TAB PEG SCH ×4 (00:12→18:43)
[2016-06-29] MEDS: FREE WATER TUBE SCH ×6 (03:51→20:00)
[2016-06-29] MEDS: HEPARIN SODIUM - SQ 10,000 UNITS/ML VIAL SQ SCH ×3 (05:53→21:30)
[2016-06-29] MEDS: ACETIC ACID 0.25% SOLN 1000 ML IRR BTL IRRIGATION SCH ×3 (05:54→21:30)
[2016-06-29] MEDS: METOPROLOL TARTRATE 50 MG TAB PO SCH ×2 (08:42→21:29)
[2016-06-29] MEDS: ASPIRIN 325 MG TAB TUBE SCH (08:42)
[2016-06-29] MEDS: RANITIDINE HCL SYRUP 150 MG/10 ML UDC PO SCH (08:42)
[2016-06-29] MEDS: POTASSIUM CHLORIDE 25 MEQ EFFERVESCENT TAB TUBE SCH (08:42)
[2016-06-29] MEDS: ARTIFICIAL TEARS OPTH OINT 3.5 APPLIC/3.5 GM TUBO EACH EYE SCH ×2 (08:42→21:30)
[2016-06-29] MEDS: LACTOBACILLUS ACIDOPHILUS TAB PEG SCH ×3 (08:42→18:43)
[2016-06-29] MEDS: NYSTATIN 100,000 U/GM PWD 15 GM BTL TOPICAL SCH ×2 (08:42→21:30)
[2016-06-29] MEDS: DILTIAZEM HCL 90 MG TAB PEG SCH ×4 (08:42→21:29)
[2016-06-29] MEDS: levETIRAcetam 500 MG/5 ML UDC TUBE SCH ×2 (08:43→21:29)
--- NOTE | 2016-06-29 11:02 | HHI.PR ---
Subjective Remarks The family inquired about electrical stimulation to help with body reflexes. The pt appeared comfortable. Family at the bedside. Objective Vitals Vital Signs Date Time Temp Pulse Resp B/P Pulse Ox O2 Delivery O2 Flow Rate FiO2 06/29/16 09:29 97 T-piece 5.00 28 06/29/16 09:29 97 T-piece 5.00 28 06/29/16 08:22 96.0 76 20 125/75 100 06/29/16 04:00 98.9 70 18 124/73 100 06/29/16 01:10 20 06/29/16 01:00 98.2 62 20 121/73 92 06/28/16 21:42 74 20 118/73 98 06/28/16 20:00 98 T-Piece 28 06/28/16 20:00 97.8 68 20 102/64 93 06/28/16 20:00 72 06/28/16 18:26 99 T-piece 6.00 28 06/28/16 16:00 97.5 70 20 117/69 99 06/28/16 16:00 T-Piece 28 06/28/16 12:00 96.3 68 20 123/81 99 06/28/16 11:50 96 T-piece 28 I/O 06/28/16 06/28/16 06/28/16 06/29/16 06/29/16 06/29/16 07:00 15:00 23:00 07:00 15:00 23:00 Intake Total 1040 ml 400 ml 200 ml 1460 ml Output Total 550 ml 1000 ml 0 ml 2000 ml Balance 490 ml -600 ml 200 ml -540 ml IV Total 0 ml Tube Feeding 440 ml 660 ml Other 600 ml 400 ml 200 ml 800 ml Output Urine Total 550 ml 1000 ml 2000 ml Tube Feeding Residual Discard 0 ml # Bowel Movements 4 2 2 Result Diagram: 06/27/16 0720 06/27/16 0720 Imaging Last Impressions Chest X-Ray 05/16/16 0000 Signed Impressions: Service Date/Time: April 17:35 - CONCLUSION: 1. Tracheostomy in satisfactory position. Mild basilar atelectasis. Durga Dotson MD Abdomen/Pelvis CT 04/12/16 0000 Signed Impressions: Service Date/Time: Tuesday, April 12, 2016 20:52 - CONCLUSION: 1. 6.4 cm necrotic mass or abscess in the soft tissues posteriorly just below the sacrum associated with some bony destructive change of the lower most sacrum and coccyx with inflammatory changes extending into the ischiorectal fossa and into the presacral retroperitoneum predominantly on the left side. There is associated fairly marked mural thickening of the anal verge and rectum. 2. There is gastrostomy and Arevalo catheter present. Stable abdominal aortic aneurysm. Durga Dotson MD Head Magnetic Resonance Angiography 03/05/16 0000 Signed Impressions: Service Date/Time: Saturday, March 05, 2016 09:26 - CONCLUSION: Persistent high-grade subtotal occlusive stenotic lesions in the distal right vertebral artery and proximal basilar artery with significant improvement in flow and recanalization following initial presentation of thrombosis. Stable interstitial circulation without significant stenosis. 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 There is decreasing restricted diffusion and increasing loss of volume characteristic of a subacute to chronic infarct. No evidence of acute infarct, acute hemorrhage mass or edema. Ernesto Kulkarni MD Head CT 01/16/16 0000 Signed Impressions: Service Date/Time: Saturday, January 16, 2016 10:51 - CONCLUSION: No extensive low density in the brainstem colin more prominent in the right the left extending into the right middle cerebellar peduncle consistent with brainstem infarct nonhemorrhagic acute Wellington West MD Abdomen X-Ray 01/14/16 0000 Signed Impressions: Service Date/Time: Thursday, January 14, 2016 10:19 - CONCLUSION: Moderate stool; otherwise, negative. 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 No evidence of carotid stenosis. Glen Zamora MD Head/Brain Mag Res Venography 12/22/15 0000 Signed Impressions: Service Date/Time: Tuesday, December 22, 2015 09:22 - CONCLUSION: Normal MRV. Jonel Jones Jr., MD Objective Remarks GENERAL: Resting comfortably. SKIN: Warm and dry. HEAD: Normocephalic. EYES: No scleral icterus. No injection or drainage. NECK: trach in place. CARDIOVASCULAR: Regular rate and rhythm without murmurs, gallops, or rubs. RESPIRATORY: Breath sounds equal bilaterally. No accessory muscle use. GASTROINTESTINAL: Abdomen soft, non-tender, nondistended. PEG tube in place. EXTREMITIES: TR edema of hands and legs. NEUROLOGICAL: Awake, alert. Does not follow commands. Does not appear to track consistently with eyes. Procedures 01/02/16 PEG placement 01/02/16 tracheostomy Medications and IVs Current Medications Medications (Trade) Dose Ordered Sig/Junior Route Start Time Stop Time Status Last Admin (NS Flush) 2 ml UNSCH PRN IVF 12/21/15 06:00 06/27/16 22:16 (Keppra Liq) 500 mg Q12HR TUBE 12/27/15 21:00 06/29/16 08:43 (Tylenol 650 Mg/ 20 ml Liq) 650 mg Q6H PRN TUBE 12/30/15 15:15 04/22/16 14:42 (Mycostatin Powder) 1 applic Q12HR TOPICAL 01/08/16 21:00 06/29/16 08:42 (Pill Splitter) 1 ea UNSCH PRN OTHER 01/14/16 08:30 (Zantac Liq) 150 mg Q24H PO 01/18/16 09:00 06/29/16 08:42 (Acetic Acid 0.25% Irr Btl) 10 ml Q8HR IRRIGATION 02/05/16 16:00 06/29/16 05:54 (Ativan Inj) 0.5 mg Q4H PRN IV PUSH 03/07/16 23:00 (Paxil Liq) 20 mg DAILY@1900 PEG 03/12/16 19:00 06/28/16 18:38 (Levemir Inj) 35 units HS SQ 03/24/16 21:00 06/28/16 21:39 (Lacrilube Opht Oint) 1 applic Q12HR EACH EYE 04/10/16 11:00 06/29/16 08:42 (Levsin) 0.25 mg Q4H PRN G-TUBE 04/11/16 10:30 05/29/16 09:18 (Zofran Inj) 4 mg Q6HR PRN IV PUSH 04/14/16 19:45 (Free Water) 200 ml Q4HR TUBE 04/16/16 12:00 06/29/16 08:00 (Penn 5-325 Mg) 1 tab Q6HR PEG 04/18/16 18:00 06/29/16 05:52 (D50w (Vial) Inj) 25 ml UNSCH PRN IV 04/20/16 12:00 (Glucagon Inj) 1 mg UNSCH PRN IM/SQ 04/20/16 12:00 (Cardizem) 90 mg QID PEG 04/25/16 21:00 06/29/16 08:42 (K-Lyte Cl Eff) 25 meq DAILY TUBE 05/28/16 09:00 06/29/16 08:42 (Aspirin) 325 mg DAILY TUBE 05/27/16 11:40 06/29/16 08:42 (Colace Liq) 100 mg DAILY PRN PO 05/27/16 11:45 (Lopressor) 50 mg BID PO 05/29/16 21:00 06/29/16 08:42 (Penn 5-325 Mg) 1 tab Q6H PRN TUBE 06/03/16 03:00 06/27/16 22:16 Lactobacillus Acidophilus 1 tab 1 tab TID PEG 06/07/16 13:00 06/29/16 08:42 (Rocephin Inj/NS Inj) 100 ml @ 200 mls/hr Q24H IV 06/10/16 12:00 06/28/16 13:13 (Heparin Inj) 5,000 units Q8HR SQ 06/11/16 14:00 06/29/16 05:53 Date of Insertion: Jun 06, 2016 A/P Problem List: (1) CVA (cerebral vascular accident) ICD Code: I63.9 Status: Acute (2) A-fib ICD Code: I48.91 Status: Chronic (3) DM (diabetes mellitus) ICD Code: E11.9 Status: Chronic Assessment and Plan 06/29: No changes. Family inquired about electrical stimulation to assist with reflexes. Tolerating tube feeds. Breathing well. Continue current treatment. 60-year-old male with past medical history of paroxysmal atrial fibrillation, hypertension, stage III a non-Hodgkin's lymphoma status post a chemotherapy last year. He came to the hospital with altered mental status, facial droop. 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 Non verbal. Continue Keppra. Palliative care following. PT/OT signed off. Chronic respiratory failure: Secondary to CVA, Status post tracheostomy. Continue pulmonary toilet and neb treatments as needed. Continue bronchodilators Xopenex, trach care, Levsin prn, suctioning. A-fib: Continue rate control with Cardizem and metoprolol. Echocardiogram completed in November shows preserved EF. Coumadin discontinued secondary to bleeding. Continue with ASA and prophylactic heparin dose. If persistently without any bleeding, could consider restarting Coumadin. CBC stable. Heart rate stable. Continue to monitor. History of Non-Hodgkin lymphoma: s/p brain biopsy on December 13, by Neurosurgery, Dr. Marin. Pathology consistent with acute infarct without evidence of lymphoma. Oncology signed off with no active oncology issues. DM (diabetes mellitus): HgbA1c 7%. Continue Levemir 35u daily. Continue sliding scale coverage. Monitor accuchecks and adjust the regimen as needed. Blood sugar stable. Continue to monitor. Decubitus ulcer stage IV: Continue Rocephin indefinitely (on lactinex) per ID until OM is ruled out with bone biopsy and watch for further bleeding (off warfarin due to bleeding which appears to have resolved). Continue dressing changes twice daily per wound care recommendations. Continue pressure relief measures, mattress, Turning and positioning. Patient's family declined a diverting colostomy. Continue wound care. GI/Nutrition: Continue Nepro at 55 cc/hr per dietitian recommendations. Free water flushes. Potassium supplement. DVT px - SCDs. Discharge Planning Awaiting clinical improvement. Problem Qualifiers (1) DM (diabetes mellitus): Qualified Code: E11.9 - Type 2 diabetes mellitus without complications Gerald Calhoun DO Jun 29, 2016 11:02
[2016-06-29] MEDS: cefTRIAXone INJ 2,000 MG in SODIUM CHLORIDE 0.9% INJ 100 ML IV SCH (12:00)
[2016-06-29] MEDS: PARoxetine HCL SUSP 20 MG/10 ML UDC PEG SCH (18:43)
[2016-06-29] MEDS: SODIUM CHLORIDE 0.9% FLUSH 5 ML FLUSH IVF PRN (21:29)
[2016-06-29] MEDS: INSULIN DETEMIR 100 UNITS/ML VIAL SQ SCH (21:29)
[2016-06-30] VITALS (9 sets, daily range): BP systolic 109–133; BP diastolic 64–77; PULSE 66–81; RESP 16–20; TEMP 95.3–97.2; O2SAT 96–100
[2016-06-30] MEDS: ACETAMINOPHEN/HYDROcodone 325 MG/5 MG TAB PEG SCH ×4 (00:30→17:46)
[2016-06-30] MEDS: FREE WATER TUBE SCH ×6 (02:39→20:00)
[2016-06-30] MEDS: ACETIC ACID 0.25% SOLN 1000 ML IRR BTL IRRIGATION SCH ×3 (06:51→21:58)
[2016-06-30] MEDS: HEPARIN SODIUM - SQ 10,000 UNITS/ML VIAL SQ SCH ×3 (06:51→21:46)
[2016-06-30] MEDS: RANITIDINE HCL SYRUP 150 MG/10 ML UDC PO SCH (08:35)
[2016-06-30] MEDS: levETIRAcetam 500 MG/5 ML UDC TUBE SCH ×2 (08:36→21:36)
[2016-06-30] MEDS: POTASSIUM CHLORIDE 25 MEQ EFFERVESCENT TAB TUBE SCH (08:36)
[2016-06-30] MEDS: LACTOBACILLUS ACIDOPHILUS TAB PEG SCH ×3 (08:36→17:45)
[2016-06-30] MEDS: DILTIAZEM HCL 90 MG TAB PEG SCH ×4 (08:38→21:36)
[2016-06-30] MEDS: ASPIRIN 325 MG TAB TUBE SCH (08:39)
[2016-06-30] MEDS: METOPROLOL TARTRATE 50 MG TAB PO SCH ×2 (08:39→21:36)
[2016-06-30] MEDS: ARTIFICIAL TEARS OPTH OINT 3.5 APPLIC/3.5 GM TUBO EACH EYE SCH ×2 (08:40→21:49)
[2016-06-30] MEDS: NYSTATIN 100,000 U/GM PWD 15 GM BTL TOPICAL SCH ×2 (08:40→21:51)
[2016-06-30] MEDS: cefTRIAXone INJ 2,000 MG in SODIUM CHLORIDE 0.9% INJ 100 ML IV SCH (12:00)
--- NOTE | 2016-06-30 15:24 | HHI.PR ---
Subjective Remarks The patient appeared comfortable. Family was at the bedside. Nursing was also at the bedside. The family wanted to know why he was making noises when he breathed. The family and nursing mention that the patient flexed his hands at times. Objective Vitals Vital Signs Date Time Temp Pulse Resp B/P Pulse Ox O2 Delivery O2 Flow Rate FiO2 06/30/16 12:31 96.7 70 20 109/64 98 06/30/16 11:06 98 T-piece 5.00 28 06/30/16 08:49 100 T-Piece 28 06/30/16 08:41 96.2 74 20 130/70 98 06/30/16 06:30 20 06/30/16 04:00 97.2 70 20 130/77 100 06/30/16 00:56 95.3 80 20 115/66 96 06/29/16 21:30 78 20 135/74 100 06/29/16 20:00 74 06/29/16 20:00 100 T-Piece 28 06/29/16 20:00 95.6 75 18 118/73 98 06/29/16 18:25 99 T-piece 6.00 28 06/29/16 18:24 99 T-piece 6.00 28 06/29/16 16:55 97.5 72 20 121/75 99 I/O 06/29/16 06/29/16 06/29/16 06/30/16 06/30/16 06/30/16 07:00 15:00 23:00 07:00 15:00 23:00 Intake Total 1460 ml 400 ml 200 ml 1460 ml Output Total 2000 ml 1000 ml 500 ml 500 ml 0 ml Balance -540 ml -600 ml -300 ml 960 ml 0 ml IV Total 0 ml Tube Feeding 660 ml 660 ml Other 800 ml 400 ml 200 ml 800 ml Output Urine Total 2000 ml 1000 ml 500 ml 500 ml Tube Feeding Residual Discard 0 ml 0 ml # Bowel Movements 2 1 2 Result Diagram: 06/27/1620 06/27/16719 Imaging Last Impressions Chest X-Ray 05/16/16 0000 Signed Impressions: Service Date/Time: April 17:35 - CONCLUSION: 1. Tracheostomy in satisfactory position. Mild basilar atelectasis. Durga Dotson MD Abdomen/Pelvis CT 04/12/16 0000 Signed Impressions: Service Date/Time: Tuesday, April 12, 2016 20:52 - CONCLUSION: 1. 6.4 cm necrotic mass or abscess in the soft tissues posteriorly just below the sacrum associated with some bony destructive change of the lower most sacrum and coccyx with inflammatory changes extending into the ischiorectal fossa and into the presacral retroperitoneum predominantly on the left side. There is associated fairly marked mural thickening of the anal verge and rectum. 2. There is gastrostomy and Arevalo catheter present. Stable abdominal aortic aneurysm. Durga Dotson MD Head Magnetic Resonance Angiography 03/05/16 0000 Signed Impressions: Service Date/Time: Saturday, March 05, 2016 09:26 - CONCLUSION: Persistent high-grade subtotal occlusive stenotic lesions in the distal right vertebral artery and proximal basilar artery with significant improvement in flow and recanalization following initial presentation of thrombosis. Stable interstitial circulation without significant stenosis. 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 There is decreasing restricted diffusion and increasing loss of volume characteristic of a subacute to chronic infarct. No evidence of acute infarct, acute hemorrhage mass or edema. Ernesto Kulkarni MD Head CT 01/16/16 0000 Signed Impressions: Service Date/Time: Saturday, January 16, 2016 10:51 - CONCLUSION: No extensive low density in the brainstem colin more prominent in the right the left extending into the right middle cerebellar peduncle consistent with brainstem infarct nonhemorrhagic acute Wellington West MD Abdomen X-Ray 01/14/16 0000 Signed Impressions: Service Date/Time: Thursday, January 14, 2016 10:19 - CONCLUSION: Moderate stool; otherwise, negative. 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 No evidence of carotid stenosis. Glen Zamora MD Head/Brain Mag Res Venography 12/22/15 0000 Signed Impressions: Service Date/Time: Tuesday, December 22, 2015 09:22 - CONCLUSION: Normal MRV. Jonel Jones Jr., MD Objective Remarks GENERAL: Resting comfortably. SKIN: Warm and dry. HEAD: Normocephalic. EYES: No scleral icterus. No injection or drainage. NECK: trach in place. CARDIOVASCULAR: Regular rate and rhythm without murmurs, gallops, or rubs. RESPIRATORY: Breath sounds equal bilaterally. No accessory muscle use. GASTROINTESTINAL: Abdomen soft, non-tender, nondistended. PEG tube in place. EXTREMITIES: TR edema of hands and legs. NEUROLOGICAL: Awake, alert. Does not follow commands. Does not appear to track consistently with eyes. Procedures 01/02/16 PEG placement 01/02/16 tracheostomy Medications and IVs Current Medications Medications (Trade) Dose Ordered Sig/Junior Route Start Time Stop Time Status Last Admin (NS Flush) 2 ml UNSCH PRN IVF 12/21/15 06:00 06/29/16 21:29 (Keppra Liq) 500 mg Q12HR TUBE 12/27/15 21:00 06/30/16 08:36 (Tylenol 650 Mg/ 20 ml Liq) 650 mg Q6H PRN TUBE 12/30/15 15:15 04/22/16 14:42 (Mycostatin Powder) 1 applic Q12HR TOPICAL 01/08/16 21:00 06/30/16 08:40 (Pill Splitter) 1 ea UNSCH PRN OTHER 01/14/16 08:30 (Zantac Liq) 150 mg Q24H PO 01/18/16 09:00 06/30/16 08:35 (Acetic Acid 0.25% Irr Btl) 10 ml Q8HR IRRIGATION 02/05/16 16:00 06/30/16 14:16 (Ativan Inj) 0.5 mg Q4H PRN IV PUSH 03/07/16 23:00 (Paxil Liq) 20 mg DAILY@1900 PEG 03/12/16 19:00 06/29/16 18:43 (Levemir Inj) 35 units HS SQ 03/24/16 21:00 06/29/16 21:29 (Lacrilube Opht Oint) 1 applic Q12HR EACH EYE 04/10/16 11:00 06/30/16 08:40 (Levsin) 0.25 mg Q4H PRN G-TUBE 04/11/16 10:30 05/29/16 09:18 (Zofran Inj) 4 mg Q6HR PRN IV PUSH 04/14/16 19:45 (Free Water) 200 ml Q4HR TUBE 04/16/16 12:00 06/30/16 12:00 (Tatum 5-325 Mg) 1 tab Q6HR PEG 04/18/16 18:00 06/30/16 05:33 (D50w (Vial) Inj) 25 ml UNSCH PRN IV 04/20/16 12:00 (Glucagon Inj) 1 mg UNSCH PRN IM/SQ 04/20/16 12:00 (Cardizem) 90 mg QID PEG 04/25/16 21:00 06/30/16 08:38 (K-Lyte Cl Eff) 25 meq DAILY TUBE 05/28/16 09:00 06/30/16 08:36 (Aspirin) 325 mg DAILY TUBE 05/27/16 11:40 06/30/16 08:39 (Colace Liq) 100 mg DAILY PRN PO 05/27/16 11:45 (Lopressor) 50 mg BID PO 05/29/16 21:00 06/30/16 08:39 (Tatum 5-325 Mg) 1 tab Q6H PRN TUBE 06/03/16 03:00 06/27/16 22:16 Lactobacillus Acidophilus 1 tab 1 tab TID PEG 06/07/16 13:00 06/30/16 12:38 (Rocephin Inj/NS Inj) 100 ml @ 200 mls/hr Q24H IV 06/10/16 12:00 06/30/16 12:00 (Heparin Inj) 5,000 units Q8HR SQ 06/11/16 14:00 06/30/16 14:17 Date of Insertion: Jun 06, 2016 A/P Problem List: (1) CVA (cerebral vascular accident) ICD Code: I63.9 Status: Acute (2) A-fib ICD Code: I48.91 Status: Chronic (3) DM (diabetes mellitus) ICD Code: E11.9 Status: Chronic Assessment and Plan 06/30: On 28% FiO2. Secretions were suctioned by nursing. Questions from family were answered. Tolerating tube feeds. 60-year-old male with past medical history of paroxysmal atrial fibrillation, hypertension, stage III a non-Hodgkin's lymphoma status post a chemotherapy last year. He came to the hospital with altered mental status, facial droop. 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 Non verbal. Continue Keppra. Palliative care following. PT/OT signed off. Chronic respiratory failure: Secondary to CVA, Status post tracheostomy. Continue pulmonary toilet and neb treatments as needed. Continue bronchodilators Xopenex, trach care, Levsin prn, suctioning. A-fib: Continue rate control with Cardizem and metoprolol. Echocardiogram completed in November shows preserved EF. Coumadin discontinued secondary to bleeding. Continue with ASA and prophylactic heparin dose. If persistently without any bleeding, could consider restarting Coumadin. CBC stable. Heart rate stable. Continue to monitor. History of Non-Hodgkin lymphoma: s/p brain biopsy on December 13, by Neurosurgery, Dr. Marin. Pathology consistent with acute infarct without evidence of lymphoma. Oncology signed off with no active oncology issues. DM (diabetes mellitus): HgbA1c 7%. Continue Levemir 35u daily. Continue sliding scale coverage. Monitor accuchecks and adjust the regimen as needed. Blood sugar stable. Continue to monitor. Decubitus ulcer stage IV: Continue Rocephin indefinitely (on lactinex) per ID until OM is ruled out with bone biopsy and watch for further bleeding (off warfarin due to bleeding which appears to have resolved). Continue dressing changes twice daily per wound care recommendations. Continue pressure relief measures, mattress, Turning and positioning. Patient's family declined a diverting colostomy. Continue wound care. Wound is growing Klebsiella. Continue ceftriaxone per infectious disease. GI/Nutrition: Continue Nepro at 55 cc/hr per dietitian recommendations. Free water flushes. Potassium supplement. DVT px - SCDs. Discharge Planning Awaiting clinical improvement. Problem Qualifiers (1) DM (diabetes mellitus): Qualified Code: E11.9 - Type 2 diabetes mellitus without complications Gerald Calhoun DO Jun 30, 2016 15:24
[2016-06-30] MEDS: PARoxetine HCL SUSP 20 MG/10 ML UDC PEG SCH (17:46)
[2016-06-30] MEDS: INSULIN DETEMIR 100 UNITS/ML VIAL SQ SCH (21:36)
[2016-07-01] VITALS (11 sets, daily range): BP systolic 112–138; BP diastolic 67–81; PULSE 65–76; RESP 14–20; TEMP 96.2–98; O2SAT 97–100
[2016-07-01] MEDS: ACETAMINOPHEN/HYDROcodone 325 MG/5 MG TAB PEG SCH ×4 (00:25→17:15)
[2016-07-01] MEDS: FREE WATER TUBE SCH ×6 (04:00→20:30)
[2016-07-01] MEDS: HEPARIN SODIUM - SQ 10,000 UNITS/ML VIAL SQ SCH ×3 (06:31→20:30)
[2016-07-01] MEDS: ACETIC ACID 0.25% SOLN 1000 ML IRR BTL IRRIGATION SCH ×3 (06:32→20:30)
[2016-07-01] MEDS: DILTIAZEM HCL 90 MG TAB PEG SCH ×4 (07:58→20:30)
[2016-07-01] MEDS: NYSTATIN 100,000 U/GM PWD 15 GM BTL TOPICAL SCH ×2 (07:59→20:30)
[2016-07-01] MEDS: RANITIDINE HCL SYRUP 150 MG/10 ML UDC PO SCH (07:59)
[2016-07-01] MEDS: ARTIFICIAL TEARS OPTH OINT 3.5 APPLIC/3.5 GM TUBO EACH EYE SCH ×2 (07:59→20:30)
[2016-07-01] MEDS: LACTOBACILLUS ACIDOPHILUS TAB PEG SCH ×3 (07:59→17:14)
[2016-07-01] MEDS: METOPROLOL TARTRATE 50 MG TAB PO SCH ×2 (07:59→20:30)
[2016-07-01] MEDS: levETIRAcetam 500 MG/5 ML UDC TUBE SCH ×2 (07:59→20:30)
[2016-07-01] MEDS: ASPIRIN 325 MG TAB TUBE SCH (07:59)
[2016-07-01] MEDS: POTASSIUM CHLORIDE 25 MEQ EFFERVESCENT TAB TUBE SCH (08:00)
[2016-07-01] MEDS: cefTRIAXone INJ 2,000 MG in SODIUM CHLORIDE 0.9% INJ 100 ML IV SCH (12:49)
--- NOTE | 2016-07-01 15:11 | HHI.PR ---
Subjective Remarks The patient was resting comfortably. Family was at the bedside. No acute concerns at this time. Objective Vitals Vital Signs Date Time Temp Pulse Resp B/P Pulse Ox O2 Delivery O2 Flow Rate FiO2 07/01/16 12:00 97.2 73 16 121/74 98 07/01/16 10:08 100 T-piece 6.00 28 07/01/16 10:08 100 T-piece 6.00 28 07/01/16 08:00 96.7 76 16 134/81 99 07/01/16 04:00 96.7 76 16 138/81 99 07/01/16 00:00 96.2 72 14 138/81 99 06/30/16 20:00 95.6 66 16 119/74 97 06/30/16 20:00 100 T-Piece 28 06/30/16 18:00 81 06/30/16 17:42 98 T-piece 6.00 28 06/30/16 16:13 95.4 74 20 133/76 100 I/O 06/30/16 06/30/16 06/30/16 07/01/16 07/01/16 07/01/16 07:00 15:00 23:00 07:00 15:00 23:00 Intake Total 1460 ml 200 ml Output Total 500 ml 0 ml 0 ml 900 ml 600 ml Balance 960 ml 0 ml 200 ml -900 ml -600 ml Tube Feeding 660 ml Other 800 ml 200 ml Output Urine Total 500 ml 900 ml 600 ml Tube Feeding Residual Discard 0 ml 0 ml 0 ml # Bowel Movements 2 1 2 Result Diagram: 06/27/16 0720 06/27/16 0720 Imaging Last Impressions Chest X-Ray 05/16/16 0000 Signed Impressions: Service Date/Time: April 17:35 - CONCLUSION: 1. Tracheostomy in satisfactory position. Mild basilar atelectasis. Durga Dotson MD Abdomen/Pelvis CT 04/12/16 0000 Signed Impressions: Service Date/Time: Tuesday, April 12, 2016 20:52 - CONCLUSION: 1. 6.4 cm necrotic mass or abscess in the soft tissues posteriorly just below the sacrum associated with some bony destructive change of the lower most sacrum and coccyx with inflammatory changes extending into the ischiorectal fossa and into the presacral retroperitoneum predominantly on the left side. There is associated fairly marked mural thickening of the anal verge and rectum. 2. There is gastrostomy and Arevalo catheter present. Stable abdominal aortic aneurysm. Durga Dotson MD Head Magnetic Resonance Angiography 03/05/16 0000 Signed Impressions: Service Date/Time: Saturday, March 05, 2016 09:26 - CONCLUSION: Persistent high-grade subtotal occlusive stenotic lesions in the distal right vertebral artery and proximal basilar artery with significant improvement in flow and recanalization following initial presentation of thrombosis. Stable interstitial circulation without significant stenosis. 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 There is decreasing restricted diffusion and increasing loss of volume characteristic of a subacute to chronic infarct. No evidence of acute infarct, acute hemorrhage mass or edema. Ernesto Kulkarni MD Head CT 01/16/16 0000 Signed Impressions: Service Date/Time: Saturday, January 16, 2016 10:51 - CONCLUSION: No extensive low density in the brainstem colin more prominent in the right the left extending into the right middle cerebellar peduncle consistent with brainstem infarct nonhemorrhagic acute Wellington West MD Abdomen X-Ray 01/14/16 0000 Signed Impressions: Service Date/Time: Thursday, January 14, 2016 10:19 - CONCLUSION: Moderate stool; otherwise, negative. 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 No evidence of carotid stenosis. Glen Zamora MD Head/Brain Mag Res Venography 12/22/15 0000 Signed Impressions: Service Date/Time: Tuesday, December 22, 2015 09:22 - CONCLUSION: Normal MRV. Jonel Jones Jr., MD Objective Remarks GENERAL: Resting comfortably. SKIN: Warm and dry. HEAD: Normocephalic. EYES: No scleral icterus. No injection or drainage. NECK: trach in place. CARDIOVASCULAR: Regular rate and rhythm without murmurs, gallops, or rubs. RESPIRATORY: Breath sounds equal bilaterally. No accessory muscle use. GASTROINTESTINAL: Abdomen soft, non-tender, nondistended. PEG tube in place. EXTREMITIES: TR edema of hands and legs. NEUROLOGICAL: Awake, alert. Does not follow commands. Does not appear to track consistently with eyes. Procedures 01/02/16 PEG placement 01/02/16 tracheostomy Medications and IVs Current Medications Medications (Trade) Dose Ordered Sig/Junior Route Start Time Stop Time Status Last Admin (NS Flush) 2 ml UNSCH PRN IVF 12/21/15 06:00 06/29/16 21:29 (Keppra Liq) 500 mg Q12HR TUBE 12/27/15 21:00 07/01/16 07:59 (Tylenol 650 Mg/ 20 ml Liq) 650 mg Q6H PRN TUBE 12/30/15 15:15 04/22/16 14:42 (Mycostatin Powder) 1 applic Q12HR TOPICAL 01/08/16 21:00 07/01/16 07:59 (Pill Splitter) 1 ea UNSCH PRN OTHER 01/14/16 08:30 (Zantac Liq) 150 mg Q24H PO 01/18/16 09:00 07/01/16 07:59 (Acetic Acid 0.25% Irr Btl) 10 ml Q8HR IRRIGATION 02/05/16 16:00 07/01/16 06:32 (Ativan Inj) 0.5 mg Q4H PRN IV PUSH 03/07/16 23:00 (Paxil Liq) 20 mg DAILY@1900 PEG 03/12/16 19:00 06/30/16 17:46 (Levemir Inj) 35 units HS SQ 03/24/16 21:00 06/30/16 21:36 (Lacrilube Opht Oint) 1 applic Q12HR EACH EYE 04/10/16 11:00 07/01/16 07:59 (Levsin) 0.25 mg Q4H PRN G-TUBE 04/11/16 10:30 05/29/16 09:18 (Zofran Inj) 4 mg Q6HR PRN IV PUSH 04/14/16 19:45 (Free Water) 200 ml Q4HR TUBE 04/16/16 12:00 07/01/16 12:00 ([place] 5-325 Mg) 1 tab Q6HR PEG 04/18/16 18:00 07/01/16 12:50 (D50w (Vial) Inj) 25 ml UNSCH PRN IV 04/20/16 12:00 (Glucagon Inj) 1 mg UNSCH PRN IM/SQ 04/20/16 12:00 (Cardizem) 90 mg QID PEG 04/25/16 21:00 07/01/16 12:50 (K-Lyte Cl Eff) 25 meq DAILY TUBE 05/28/16 09:00 07/01/16 08:00 (Aspirin) 325 mg DAILY TUBE 05/27/16 11:40 07/01/16 07:59 (Colace Liq) 100 mg DAILY PRN PO 05/27/16 11:45 (Lopressor) 50 mg BID PO 05/29/16 21:00 07/01/16 07:59 ([place] 5-325 Mg) 1 tab Q6H PRN TUBE 06/03/16 03:00 06/27/16 22:16 Lactobacillus Acidophilus 1 tab 1 tab TID PEG 06/07/16 13:00 07/01/16 12:50 (Rocephin Inj/NS Inj) 100 ml @ 200 mls/hr Q24H IV 06/10/16 12:00 07/01/16 12:49 (Heparin Inj) 5,000 units Q8HR SQ 06/11/16 14:00 07/01/16 12:49 Date of Insertion: Jun 06, 2016 A/P Problem List: (1) CVA (cerebral vascular accident) ICD Code: I63.9 Status: Acute (2) A-fib ICD Code: I48.91 Status: Chronic (3) DM (diabetes mellitus) ICD Code: E11.9 Status: Chronic Assessment and Plan 07/01: On 28% FiO2. Secretions appear improved. The patient is opening his eyes in response to some questions. Questions from family were answered. Tolerating tube feeds. 60-year-old male with past medical history of paroxysmal atrial fibrillation, hypertension, stage III a non-Hodgkin's lymphoma status post a chemotherapy last year. He came to the hospital with altered mental status, facial droop. 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 Non verbal. Continue Keppra. Palliative care following. PT/OT signed off. Chronic respiratory failure: Secondary to CVA, Status post tracheostomy. Continue pulmonary toilet and neb treatments as needed. Continue bronchodilators Xopenex, trach care, Levsin prn, suctioning. A-fib: Continue rate control with Cardizem and metoprolol. Echocardiogram completed in November shows preserved EF. Coumadin discontinued secondary to bleeding. Continue with ASA and prophylactic heparin dose. If persistently without any bleeding, could consider restarting Coumadin. CBC stable. Heart rate stable. Continue to monitor. History of Non-Hodgkin lymphoma: s/p brain biopsy on December 13, by Neurosurgery, Dr. Marin. Pathology consistent with acute infarct without evidence of lymphoma. Oncology signed off with no active oncology issues. DM (diabetes mellitus): HgbA1c 7%. Continue Levemir 35u daily. Continue sliding scale coverage. Monitor accuchecks and adjust the regimen as needed. Blood sugar stable. Continue to monitor. Decubitus ulcer stage IV: Continue Rocephin indefinitely (on lactinex) per ID until OM is ruled out with bone biopsy and watch for further bleeding (off warfarin due to bleeding which appears to have resolved). Continue dressing changes twice daily per wound care recommendations. Continue pressure relief measures, mattress, Turning and positioning. Patient's family declined a diverting colostomy. Continue wound care. Wound is growing Klebsiella. Continue ceftriaxone per infectious disease. GI/Nutrition: Continue Nepro at 55 cc/hr per dietitian recommendations. Free water flushes. Potassium supplement. DVT px - SCDs. Discharge Planning Awaiting clinical improvement. Problem Qualifiers (1) DM (diabetes mellitus): Qualified Code: E11.9 - Type 2 diabetes mellitus without complications Gerald Calhoun DO Jul 01, 2016 15:11
[2016-07-01] MEDS: PARoxetine HCL SUSP 20 MG/10 ML UDC PEG SCH (20:30)
[2016-07-01] MEDS: INSULIN DETEMIR 100 UNITS/ML VIAL SQ SCH (20:35)
[2016-07-02] VITALS (9 sets, daily range): BP systolic 114–143; BP diastolic 68–83; PULSE 70–79; RESP 18–24; TEMP 96–98.1; O2SAT 97–100
[2016-07-02] MEDS: FREE WATER TUBE SCH ×6 (00:27→22:18)
[2016-07-02] MEDS: ACETAMINOPHEN/HYDROcodone 325 MG/5 MG TAB PEG SCH ×4 (00:28→17:50)
[2016-07-02] MEDS: HEPARIN SODIUM - SQ 10,000 UNITS/ML VIAL SQ SCH ×3 (05:36→22:17)
[2016-07-02] MEDS: ACETIC ACID 0.25% SOLN 1000 ML IRR BTL IRRIGATION SCH ×3 (05:36→22:17)
[2016-07-02] MEDS: LACTOBACILLUS ACIDOPHILUS TAB PEG SCH ×3 (08:43→17:49)
[2016-07-02] MEDS: DILTIAZEM HCL 90 MG TAB PEG SCH ×4 (08:43→22:16)
[2016-07-02] MEDS: ARTIFICIAL TEARS OPTH OINT 3.5 APPLIC/3.5 GM TUBO EACH EYE SCH ×2 (08:43→22:18)
[2016-07-02] MEDS: METOPROLOL TARTRATE 50 MG TAB PO SCH ×2 (08:43→22:16)
[2016-07-02] MEDS: NYSTATIN 100,000 U/GM PWD 15 GM BTL TOPICAL SCH ×2 (08:44→22:17)
[2016-07-02] MEDS: RANITIDINE HCL SYRUP 150 MG/10 ML UDC PO SCH (08:44)
[2016-07-02] MEDS: ASPIRIN 325 MG TAB TUBE SCH (08:44)
[2016-07-02] MEDS: levETIRAcetam 500 MG/5 ML UDC TUBE SCH ×2 (08:44→22:15)
[2016-07-02] MEDS: POTASSIUM CHLORIDE 25 MEQ EFFERVESCENT TAB TUBE SCH (08:44)
[2016-07-02] MEDS: cefTRIAXone INJ 2,000 MG in SODIUM CHLORIDE 0.9% INJ 100 ML IV SCH (12:21)
--- NOTE | 2016-07-02 15:06 | HHI.PR ---
Subjective Remarks The patient's family was at the bedside. The patient was alert and somewhat interacting. No acute concerns at this time. Objective Vitals Vital Signs Date Time Temp Pulse Resp B/P Pulse Ox O2 Delivery O2 Flow Rate FiO2 07/02/16 12:00 97.4 70 18 115/69 97 07/02/16 08:50 99 T-piece 6.00 28 07/02/16 08:50 99 T-piece 6.00 28 07/02/16 08:00 97.6 79 18 129/76 99 07/02/16 07:00 73 07/02/16 07:00 Trach Collar 6.00 28 07/02/16 04:00 96.0 76 20 133/74 100 07/02/16 04:00 T-Piece 6.00 28 07/02/16 00:00 98.1 72 24 114/74 97 07/02/16 00:00 T-Piece 6.00 28 07/01/16 21:25 98 T-piece 6.00 28 07/01/16 21:25 98 T-piece 6.00 28 07/01/16 20:00 T-Piece 6.00 28 07/01/16 20:00 97.8 75 20 119/74 97 07/01/16 17:48 72 07/01/16 16:00 96.9 65 18 112/67 98 I/O 07/01/16 07/01/16 07/01/16 07/02/16 07/02/16 07/02/16 07:00 15:00 23:00 07:00 15:00 23:00 Intake Total 1298 ml 844 ml Output Total 900 ml 600 ml 275 ml 425 ml 750 ml Balance -900 ml -600 ml 1023 ml 419 ml -750 ml Tube Feeding 1098 ml 444 ml Other 200 ml 400 ml Output Urine Total 900 ml 600 ml 275 ml 425 ml 750 ml Tube Feeding Residual Discard 0 ml # Bowel Movements 2 1 1 Imaging Last Impressions Chest X-Ray 05/16/16 0000 Signed Impressions: Service Date/Time: April 17:35 - CONCLUSION: 1. Tracheostomy in satisfactory position. Mild basilar atelectasis. Durga Dotson MD Abdomen/Pelvis CT 04/12/16 0000 Signed Impressions: Service Date/Time: Tuesday, April 12, 2016 20:52 - CONCLUSION: 1. 6.4 cm necrotic mass or abscess in the soft tissues posteriorly just below the sacrum associated with some bony destructive change of the lower most sacrum and coccyx with inflammatory changes extending into the ischiorectal fossa and into the presacral retroperitoneum predominantly on the left side. There is associated fairly marked mural thickening of the anal verge and rectum. 2. There is gastrostomy and Arevalo catheter present. Stable abdominal aortic aneurysm. Durga Dotson MD Head Magnetic Resonance Angiography 03/05/16 0000 Signed Impressions: Service Date/Time: Saturday, March 05, 2016 09:26 - CONCLUSION: Persistent high-grade subtotal occlusive stenotic lesions in the distal right vertebral artery and proximal basilar artery with significant improvement in flow and recanalization following initial presentation of thrombosis. Stable interstitial circulation without significant stenosis. 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 There is decreasing restricted diffusion and increasing loss of volume characteristic of a subacute to chronic infarct. No evidence of acute infarct, acute hemorrhage mass or edema. Ernesto Kulkarni MD Head CT 01/16/16 0000 Signed Impressions: Service Date/Time: Saturday, January 16, 2016 10:51 - CONCLUSION: No extensive low density in the brainstem colin more prominent in the right the left extending into the right middle cerebellar peduncle consistent with brainstem infarct nonhemorrhagic acute Wellington West MD Abdomen X-Ray 01/14/16 0000 Signed Impressions: Service Date/Time: Thursday, January 14, 2016 10:19 - CONCLUSION: Moderate stool; otherwise, negative. 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 No evidence of carotid stenosis. Glen Zamora MD Head/Brain Mag Res Venography 12/22/15 0000 Signed Impressions: Service Date/Time: Tuesday, December 22, 2015 09:22 - CONCLUSION: Normal MRV. Jonel Jones Jr., MD Objective Remarks GENERAL: Resting comfortably. SKIN: Warm and dry. HEAD: Normocephalic. EYES: No scleral icterus. No injection or drainage. NECK: trach in place. CARDIOVASCULAR: Regular rate and rhythm without murmurs, gallops, or rubs. RESPIRATORY: Breath sounds equal bilaterally. No accessory muscle use. GASTROINTESTINAL: Abdomen soft, non-tender, nondistended. PEG tube in place. EXTREMITIES: TR edema of hands and legs. NEUROLOGICAL: Awake, alert. Does follow some commands. Procedures 01/02/16 PEG placement 01/02/16 tracheostomy Medications and IVs Current Medications Medications (Trade) Dose Ordered Sig/Junior Route Start Time Stop Time Status Last Admin (NS Flush) 2 ml UNSCH PRN IVF 12/21/15 06:00 06/29/16 21:29 (Keppra Liq) 500 mg Q12HR TUBE 12/27/15 21:00 07/02/16 08:44 (Tylenol 650 Mg/ 20 ml Liq) 650 mg Q6H PRN TUBE 12/30/15 15:15 04/22/16 14:42 (Mycostatin Powder) 1 applic Q12HR TOPICAL 01/08/16 21:00 07/02/16 08:44 (Pill Splitter) 1 ea UNSCH PRN OTHER 01/14/16 08:30 (Zantac Liq) 150 mg Q24H PO 01/18/16 09:00 07/02/16 08:44 (Acetic Acid 0.25% Irr Btl) 10 ml Q8HR IRRIGATION 02/05/16 16:00 07/02/16 12:32 (Ativan Inj) 0.5 mg Q4H PRN IV PUSH 03/07/16 23:00 (Paxil Liq) 20 mg DAILY@1900 PEG 03/12/16 19:00 07/01/16 20:30 (Levemir Inj) 35 units HS SQ 03/24/16 21:00 07/01/16 20:35 (Lacrilube Opht Oint) 1 applic Q12HR EACH EYE 04/10/16 11:00 07/02/16 08:43 (Levsin) 0.25 mg Q4H PRN G-TUBE 04/11/16 10:30 05/29/16 09:18 (Zofran Inj) 4 mg Q6HR PRN IV PUSH 04/14/16 19:45 (Free Water) 200 ml Q4HR TUBE 04/16/16 12:00 07/02/16 12:00 ([place] 5-325 Mg) 1 tab Q6HR PEG 04/18/16 18:00 07/02/16 12:21 (D50w (Vial) Inj) 25 ml UNSCH PRN IV 04/20/16 12:00 (Glucagon Inj) 1 mg UNSCH PRN IM/SQ 04/20/16 12:00 (Cardizem) 90 mg QID PEG 04/25/16 21:00 07/02/16 08:43 (K-Lyte Cl Eff) 25 meq DAILY TUBE 05/28/16 09:00 07/02/16 08:44 (Aspirin) 325 mg DAILY TUBE 05/27/16 11:40 07/02/16 08:44 (Colace Liq) 100 mg DAILY PRN PO 05/27/16 11:45 (Lopressor) 50 mg BID PO 05/29/16 21:00 07/02/16 08:43 ([place] 5-325 Mg) 1 tab Q6H PRN TUBE 06/03/16 03:00 06/27/16 22:16 Lactobacillus Acidophilus 1 tab 1 tab TID PEG 06/07/16 13:00 07/02/16 12:21 (Rocephin Inj/NS Inj) 100 ml @ 200 mls/hr Q24H IV 06/10/16 12:00 07/02/16 12:21 (Heparin Inj) 5,000 units Q8HR SQ 06/11/16 14:00 07/02/16 12:21 Date of Insertion: Jun 06, 2016 A/P Problem List: (1) CVA (cerebral vascular accident) ICD Code: I63.9 Status: Acute (2) A-fib ICD Code: I48.91 Status: Chronic (3) DM (diabetes mellitus) ICD Code: E11.9 Status: Chronic Assessment and Plan 07/02: On 28% FiO2. Secretions appear improved. The patient is opening his eyes in response to some questions and moving his right hand when flexed. Questions from family were answered. Tolerating tube feeds. 60-year-old male with past medical history of paroxysmal atrial fibrillation, hypertension, stage III a non-Hodgkin's lymphoma status post a chemotherapy last year. He came to the hospital with altered mental status, facial droop. 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 Non verbal. Continue Keppra. Palliative care following. PT/OT signed off. Chronic respiratory failure: Secondary to CVA, Status post tracheostomy. Continue pulmonary toilet and neb treatments as needed. Continue bronchodilators Xopenex, trach care, Levsin prn, suctioning. A-fib: Continue rate control with Cardizem and metoprolol. Echocardiogram completed in November shows preserved EF. Coumadin discontinued secondary to bleeding. Continue with ASA and prophylactic heparin dose. If persistently without any bleeding, could consider restarting Coumadin. CBC stable. Heart rate stable. Continue to monitor. History of Non-Hodgkin lymphoma: s/p brain biopsy on December 13, by Neurosurgery, Dr. Marin. Pathology consistent with acute infarct without evidence of lymphoma. Oncology signed off with no active oncology issues. DM (diabetes mellitus): HgbA1c 7%. Continue Levemir 35u daily. Continue sliding scale coverage. Monitor accuchecks and adjust the regimen as needed. Blood sugar stable. Continue to monitor. Decubitus ulcer stage IV: Continue Rocephin indefinitely (on lactinex) per ID until OM is ruled out with bone biopsy and watch for further bleeding (off warfarin due to bleeding which appears to have resolved). Continue dressing changes twice daily per wound care recommendations. Continue pressure relief measures, mattress, Turning and positioning. Patient's family declined a diverting colostomy. Continue wound care. Wound is growing Klebsiella. Continue ceftriaxone per infectious disease. GI/Nutrition: Continue Nepro at 55 cc/hr per dietitian recommendations. Free water flushes. Potassium supplement. DVT px - SCDs. Discharge Planning Awaiting clinical improvement. Problem Qualifiers (1) DM (diabetes mellitus): Qualified Code: E11.9 - Type 2 diabetes mellitus without complications Gerald Calhoun DO Jul 02, 2016 15:06
[2016-07-02] MEDS: PARoxetine HCL SUSP 20 MG/10 ML UDC PEG SCH (22:15)
[2016-07-02] MEDS: INSULIN DETEMIR 100 UNITS/ML VIAL SQ SCH (22:16)
[2016-07-03] VITALS (10 sets, daily range): BP systolic 110–140; BP diastolic 67–79; PULSE 69–84; RESP 18–21; TEMP 96.1–97.9; O2SAT 98–99
[2016-07-03] MEDS: ACETAMINOPHEN/HYDROcodone 325 MG/5 MG TAB PEG SCH ×5 (01:31→23:01)
[2016-07-03] MEDS: FREE WATER TUBE SCH ×7 (01:45→23:01)
[2016-07-03] MEDS: ACETIC ACID 0.25% SOLN 1000 ML IRR BTL IRRIGATION SCH ×3 (06:25→22:11)
[2016-07-03] MEDS: HEPARIN SODIUM - SQ 10,000 UNITS/ML VIAL SQ SCH ×3 (06:25→22:11)
[2016-07-03] MEDS: LACTOBACILLUS ACIDOPHILUS TAB PEG SCH ×3 (09:23→17:21)
[2016-07-03] MEDS: levETIRAcetam 500 MG/5 ML UDC TUBE SCH ×2 (09:23→22:11)
[2016-07-03] MEDS: RANITIDINE HCL SYRUP 150 MG/10 ML UDC PO SCH (09:23)
[2016-07-03] MEDS: ASPIRIN 325 MG TAB TUBE SCH (09:24)
[2016-07-03] MEDS: DILTIAZEM HCL 90 MG TAB PEG SCH ×4 (09:24→22:10)
[2016-07-03] MEDS: METOPROLOL TARTRATE 50 MG TAB PO SCH ×2 (09:24→22:10)
[2016-07-03] MEDS: POTASSIUM CHLORIDE 25 MEQ EFFERVESCENT TAB TUBE SCH (09:24)
[2016-07-03] MEDS: ARTIFICIAL TEARS OPTH OINT 3.5 APPLIC/3.5 GM TUBO EACH EYE SCH ×2 (09:25→22:09)
[2016-07-03] MEDS: NYSTATIN 100,000 U/GM PWD 15 GM BTL TOPICAL SCH ×2 (09:25→22:11)
--- NOTE | 2016-07-03 11:31 | HHI.PR ---
Subjective Remarks The patient appeared comfortable. Family at the bedside. Questions were answered. Objective Vitals Vital Signs Date Time Temp Pulse Resp B/P Pulse Ox O2 Delivery O2 Flow Rate FiO2 07/03/16 08:18 98 T-piece 6.00 28 07/03/16 08:17 99 T-piece 6.00 28 07/03/16 08:00 96.2 78 18 129/78 98 07/03/16 06:00 97.9 75 20 140/79 98 07/03/16 00:30 97.0 73 21 120/67 98 07/02/16 21:30 98.0 74 20 117/68 98 07/02/16 20:00 Trach Collar 6.00 28 07/02/16 20:00 74 07/02/16 16:00 97.3 74 18 143/83 99 07/02/16 12:00 97.4 70 18 115/69 97 I/O 07/02/16 07/02/16 07/02/16 07/03/16 07/03/16 07/03/16 07:00 15:00 23:00 07:00 15:00 23:00 Intake Total 844 ml 0 ml 0 ml Output Total 425 ml 750 ml 700 ml 600 ml Balance 419 ml -750 ml -700 ml -600 ml Intake Oral 0 ml 0 ml Tube Feeding 444 ml Other 400 ml Output Urine Total 425 ml 750 ml 700 ml 600 ml # Bowel Movements 1 2 1 Imaging Last Impressions Chest X-Ray 05/16/16 0000 Signed Impressions: Service Date/Time: April 17:35 - CONCLUSION: 1. Tracheostomy in satisfactory position. Mild basilar atelectasis. Durga Dotson MD Abdomen/Pelvis CT 04/12/16 0000 Signed Impressions: Service Date/Time: Tuesday, April 12, 2016 20:52 - CONCLUSION: 1. 6.4 cm necrotic mass or abscess in the soft tissues posteriorly just below the sacrum associated with some bony destructive change of the lower most sacrum and coccyx with inflammatory changes extending into the ischiorectal fossa and into the presacral retroperitoneum predominantly on the left side. There is associated fairly marked mural thickening of the anal verge and rectum. 2. There is gastrostomy and Arevalo catheter present. Stable abdominal aortic aneurysm. Durga Dotson MD Head Magnetic Resonance Angiography 03/05/16 0000 Signed Impressions: Service Date/Time: Saturday, March 05, 2016 09:26 - CONCLUSION: Persistent high-grade subtotal occlusive stenotic lesions in the distal right vertebral artery and proximal basilar artery with significant improvement in flow and recanalization following initial presentation of thrombosis. Stable interstitial circulation without significant stenosis. 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 There is decreasing restricted diffusion and increasing loss of volume characteristic of a subacute to chronic infarct. No evidence of acute infarct, acute hemorrhage mass or edema. Ernesto Kulkarni MD Head CT 01/16/16 0000 Signed Impressions: Service Date/Time: Saturday, January 16, 2016 10:51 - CONCLUSION: No extensive low density in the brainstem colin more prominent in the right the left extending into the right middle cerebellar peduncle consistent with brainstem infarct nonhemorrhagic acute Wellington West MD Abdomen X-Ray 01/14/16 0000 Signed Impressions: Service Date/Time: Thursday, January 14, 2016 10:19 - CONCLUSION: Moderate stool; otherwise, negative. 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 No evidence of carotid stenosis. Glen Zamora MD Head/Brain Mag Res Venography 12/22/15 0000 Signed Impressions: Service Date/Time: Tuesday, December 22, 2015 09:22 - CONCLUSION: Normal MRV. Jonel Jones Jr., MD Objective Remarks GENERAL: Resting comfortably. SKIN: Warm and dry. HEAD: Normocephalic. EYES: No scleral icterus. No injection or drainage. NECK: trach in place. CARDIOVASCULAR: Regular rate and rhythm without murmurs, gallops, or rubs. RESPIRATORY: Breath sounds equal bilaterally. No accessory muscle use. GASTROINTESTINAL: Abdomen soft, non-tender, nondistended. PEG tube in place. EXTREMITIES: TR edema of hands and legs. NEUROLOGICAL: Awake, alert. Does follow some commands. Procedures 01/02/16 PEG placement 01/02/16 tracheostomy Medications and IVs Current Medications Medications (Trade) Dose Ordered Sig/Junior Route Start Time Stop Time Status Last Admin (NS Flush) 2 ml UNSCH PRN IVF 12/21/15 06:00 06/29/16 21:29 (Keppra Liq) 500 mg Q12HR TUBE 12/27/15 21:00 07/03/16 09:23 (Tylenol 650 Mg/ 20 ml Liq) 650 mg Q6H PRN TUBE 12/30/15 15:15 04/22/16 14:42 (Mycostatin Powder) 1 applic Q12HR TOPICAL 01/08/16 21:00 07/03/16 09:25 (Pill Splitter) 1 ea UNSCH PRN OTHER 01/14/16 08:30 (Zantac Liq) 150 mg Q24H PO 01/18/16 09:00 07/03/16 09:23 (Acetic Acid 0.25% Irr Btl) 10 ml Q8HR IRRIGATION 02/05/16 16:00 07/03/16 06:25 (Ativan Inj) 0.5 mg Q4H PRN IV PUSH 03/07/16 23:00 (Paxil Liq) 20 mg DAILY@1900 PEG 03/12/16 19:00 07/02/16 22:15 (Levemir Inj) 35 units HS SQ 03/24/16 21:00 07/02/16 22:16 (Lacrilube Opht Oint) 1 applic Q12HR EACH EYE 04/10/16 11:00 07/03/16 09:25 (Levsin) 0.25 mg Q4H PRN G-TUBE 04/11/16 10:30 05/29/16 09:18 (Zofran Inj) 4 mg Q6HR PRN IV PUSH 04/14/16 19:45 (Free Water) 200 ml Q4HR TUBE 04/16/16 12:00 07/03/16 08:00 ([place] 5-325 Mg) 1 tab Q6HR PEG 04/18/16 18:00 07/03/16 06:23 (D50w (Vial) Inj) 25 ml UNSCH PRN IV 04/20/16 12:00 (Glucagon Inj) 1 mg UNSCH PRN IM/SQ 04/20/16 12:00 (Cardizem) 90 mg QID PEG 04/25/16 21:00 07/03/16 09:24 (K-Lyte Cl Eff) 25 meq DAILY TUBE 05/28/16 09:00 07/03/16 09:24 (Aspirin) 325 mg DAILY TUBE 05/27/16 11:40 07/03/16 09:24 (Colace Liq) 100 mg DAILY PRN PO 05/27/16 11:45 (Lopressor) 50 mg BID PO 05/29/16 21:00 07/03/16 09:24 ([place] 5-325 Mg) 1 tab Q6H PRN TUBE 06/03/16 03:00 06/27/16 22:16 Lactobacillus Acidophilus 1 tab 1 tab TID PEG 06/07/16 13:00 07/03/16 09:23 (Rocephin Inj/NS Inj) 100 ml @ 200 mls/hr Q24H IV 06/10/16 12:00 07/02/16 12:21 (Heparin Inj) 5,000 units Q8HR SQ 06/11/16 14:00 07/03/16 06:25 Date of Insertion: Jun 06, 2016 A/P Problem List: (1) CVA (cerebral vascular accident) ICD Code: I63.9 Status: Acute (2) A-fib ICD Code: I48.91 Status: Chronic (3) DM (diabetes mellitus) ICD Code: E11.9 Status: Chronic Assessment and Plan 07/03: On 28% FiO2. Secretions appear improved. The patient is alert. Questions from family were answered. Tolerating tube feeds. Check CBC and BMP in the a.m. 60-year-old male with past medical history of paroxysmal atrial fibrillation, hypertension, stage III a non-Hodgkin's lymphoma status post a chemotherapy last year. He came to the hospital with altered mental status, facial droop. 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 Non verbal. Continue Keppra. Palliative care following. PT/OT signed off. Chronic respiratory failure: Secondary to CVA, Status post tracheostomy. Continue pulmonary toilet and neb treatments as needed. Continue bronchodilators Xopenex, trach care, Levsin prn, suctioning. A-fib: Continue rate control with Cardizem and metoprolol. Echocardiogram completed in November shows preserved EF. Coumadin discontinued secondary to bleeding. Continue with ASA and prophylactic heparin dose. If persistently without any bleeding, could consider restarting Coumadin. CBC stable. Heart rate stable. Continue to monitor. History of Non-Hodgkin lymphoma: s/p brain biopsy on December 13, by Neurosurgery, Dr. Marin. Pathology consistent with acute infarct without evidence of lymphoma. Oncology signed off with no active oncology issues. DM (diabetes mellitus): HgbA1c 7%. Continue Levemir 35u daily. Continue sliding scale coverage. Monitor accuchecks and adjust the regimen as needed. Blood sugar stable. Continue to monitor. Decubitus ulcer stage IV: Continue Rocephin indefinitely (on lactinex) per ID until OM is ruled out with bone biopsy and watch for further bleeding (off warfarin due to bleeding which appears to have resolved). Continue dressing changes twice daily per wound care recommendations. Continue pressure relief measures, mattress, Turning and positioning. Patient's family declined a diverting colostomy. Continue wound care. Wound is growing Klebsiella. Continue ceftriaxone per infectious disease. GI/Nutrition: Continue Nepro at 55 cc/hr per dietitian recommendations. Free water flushes. Potassium supplement. DVT px - SCDs. Discharge Planning Awaiting clinical improvement. Problem Qualifiers (1) DM (diabetes mellitus): Qualified Code: E11.9 - Type 2 diabetes mellitus without complications Gerald Calhoun DO Jul 03, 2016 11:30
[2016-07-03] MEDS: cefTRIAXone INJ 2,000 MG in SODIUM CHLORIDE 0.9% INJ 100 ML IV SCH (12:18)
[2016-07-03] MEDS: PARoxetine HCL SUSP 20 MG/10 ML UDC PEG SCH (18:43)
[2016-07-03] MEDS: INSULIN DETEMIR 100 UNITS/ML VIAL SQ SCH (22:10)
[2016-07-04] VITALS (11 sets, daily range): BP systolic 106–130; BP diastolic 62–75; PULSE 58–77; RESP 20; TEMP 97.2–98.1; O2SAT 96–100
[2016-07-04] MEDS: FREE WATER TUBE SCH ×6 (03:22→23:59)
[2016-07-04] MEDS: HEPARIN SODIUM - SQ 10,000 UNITS/ML VIAL SQ SCH ×3 (06:34→23:57)
[2016-07-04] MEDS: ACETAMINOPHEN/HYDROcodone 325 MG/5 MG TAB PEG SCH ×4 (06:35→23:56)
[2016-07-04] MEDS: ACETIC ACID 0.25% SOLN 1000 ML IRR BTL IRRIGATION SCH ×3 (06:35→23:59)
[2016-07-04 07:24] LABS: HEMATOCRIT 31.6 % (39.0-51.0); MEAN CELL VOLUME 74.8 FL (80.0-100.0); MEAN CORPUSCULAR HEMOGLOBIN 23.6 PG (27.0-34.0); MEAN CORPUSCULAR HGB CONC 31.5 % (32.0-36.0); PLATELET COUNT 194 TH/MM3 (150-450); RED BLOOD COUNT 4.22 MIL/MM3 (4.50-5.90); RED CELL DISTRIBUTION WIDTH 20.3 % (11.6-17.2)
[2016-07-04 07:33] LABS: REVIEW FLAG FINAL
[2016-07-04 07:37] LABS: BICARBONATE 24.9 MEQ/L (21.0-32.0); MAGNESIUM 1.7 MG/DL (1.5-2.5); POTASSIUM 3.9 MEQ/L (3.5-5.1)
[2016-07-04] MEDS: LACTOBACILLUS ACIDOPHILUS TAB PEG SCH ×3 (09:50→18:31)
[2016-07-04] MEDS: levETIRAcetam 500 MG/5 ML UDC TUBE SCH ×2 (09:50→23:56)
[2016-07-04] MEDS: METOPROLOL TARTRATE 50 MG TAB PO SCH ×2 (09:50→23:57)
[2016-07-04] MEDS: DILTIAZEM HCL 90 MG TAB PEG SCH ×4 (09:50→23:56)
[2016-07-04] MEDS: RANITIDINE HCL SYRUP 150 MG/10 ML UDC PO SCH (09:50)
[2016-07-04] MEDS: POTASSIUM CHLORIDE 25 MEQ EFFERVESCENT TAB TUBE SCH (09:50)
[2016-07-04] MEDS: NYSTATIN 100,000 U/GM PWD 15 GM BTL TOPICAL SCH ×2 (09:51→23:58)
[2016-07-04] MEDS: ARTIFICIAL TEARS OPTH OINT 3.5 APPLIC/3.5 GM TUBO EACH EYE SCH ×2 (09:51→23:58)
[2016-07-04] MEDS: ASPIRIN 325 MG TAB TUBE SCH (09:51)
[2016-07-04] MEDS: cefTRIAXone INJ 2,000 MG in SODIUM CHLORIDE 0.9% INJ 100 ML IV SCH (12:00)
--- NOTE | 2016-07-04 17:15 | HHI.PR ---
Subjective Remarks The patient was resting in bed comfortably. Family was at the bedside. No acute concerns. Questions were answered. Objective Vitals Vital Signs Date Time Temp Pulse Resp B/P Pulse Ox O2 Delivery O2 Flow Rate FiO2 07/04/16 16:35 98.1 72 20 117/70 100 07/04/16 12:10 98.0 77 20 115/73 96 07/04/16 11:36 96 T-piece 5.00 28 07/04/16 11:36 96 T-piece 5.00 28 07/04/16 08:33 97.6 72 20 128/62 97 07/04/16 04:00 97.2 73 20 118/72 100 07/04/16 00:56 76 07/04/16 00:00 97.5 58 20 106/73 98 07/03/16 22:15 100 T-Piece 6.00 28 07/03/16 20:00 97.6 84 20 137/74 98 07/03/16 17:23 99 T-piece 6.00 28 I/O 07/03/16 07/03/16 07/03/16 07/04/16 07/04/16 07/04/16 06:59 14:59 22:59 06:59 14:59 22:59 Intake Total 0 ml 1944 ml Output Total 600 ml 550 ml 600 ml 200 ml Balance -600 ml 1394 ml -600 ml -200 ml Intake Oral 0 ml Tube Feeding 1544 ml Other 400 ml Output Urine Total 600 ml 550 ml 600 ml 200 ml # Bowel Movements 1 2 0 1 Result Diagram: 07/04/16 0702 07/04/16 0702 Imaging Last Impressions Chest X-Ray 05/16/16 0000 Signed Impressions: Service Date/Time: April 17:35 - CONCLUSION: 1. Tracheostomy in satisfactory position. Mild basilar atelectasis. Durga Dotson MD Abdomen/Pelvis CT 04/12/16 0000 Signed Impressions: Service Date/Time: Tuesday, April 12, 2016 20:52 - CONCLUSION: 1. 6.4 cm necrotic mass or abscess in the soft tissues posteriorly just below the sacrum associated with some bony destructive change of the lower most sacrum and coccyx with inflammatory changes extending into the ischiorectal fossa and into the presacral retroperitoneum predominantly on the left side. There is associated fairly marked mural thickening of the anal verge and rectum. 2. There is gastrostomy and Arevalo catheter present. Stable abdominal aortic aneurysm. Durga Dotson MD Head Magnetic Resonance Angiography 03/05/16 0000 Signed Impressions: Service Date/Time: Saturday, March 05, 2016 09:26 - CONCLUSION: Persistent high-grade subtotal occlusive stenotic lesions in the distal right vertebral artery and proximal basilar artery with significant improvement in flow and recanalization following initial presentation of thrombosis. Stable interstitial circulation without significant stenosis. 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 There is decreasing restricted diffusion and increasing loss of volume characteristic of a subacute to chronic infarct. No evidence of acute infarct, acute hemorrhage mass or edema. Ernesto Kulkarni MD Head CT 01/16/16 0000 Signed Impressions: Service Date/Time: Saturday, January 16, 2016 10:51 - CONCLUSION: No extensive low density in the brainstem colin more prominent in the right the left extending into the right middle cerebellar peduncle consistent with brainstem infarct nonhemorrhagic acute Wellington West MD Abdomen X-Ray 01/14/16 0000 Signed Impressions: Service Date/Time: Thursday, January 14, 2016 10:19 - CONCLUSION: Moderate stool; otherwise, negative. 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 No evidence of carotid stenosis. Glen Zamora MD Head/Brain Mag Res Venography 12/22/15 0000 Signed Impressions: Service Date/Time: Tuesday, December 22, 2015 09:22 - CONCLUSION: Normal MRV. Jonel Jones Jr., MD Objective Remarks GENERAL: Resting comfortably. SKIN: Warm and dry. HEAD: Normocephalic. EYES: No scleral icterus. No injection or drainage. NECK: trach in place. CARDIOVASCULAR: Regular rate and rhythm without murmurs, gallops, or rubs. RESPIRATORY: Breath sounds equal bilaterally. No accessory muscle use. GASTROINTESTINAL: Abdomen soft, non-tender, nondistended. PEG tube in place. EXTREMITIES: TR edema of hands and legs. NEUROLOGICAL: Awake, alert. Does follow some commands. Procedures 01/02/16 PEG placement 01/02/16 tracheostomy Medications and IVs Current Medications Medications (Trade) Dose Ordered Sig/Junior Route Start Time Stop Time Status Last Admin (NS Flush) 2 ml UNSCH PRN IVF 12/21/15 06:00 06/29/16 21:29 (Keppra Liq) 500 mg Q12HR TUBE 12/27/15 21:00 07/04/16 09:50 (Tylenol 650 Mg/ 20 ml Liq) 650 mg Q6H PRN TUBE 12/30/15 15:15 04/22/16 14:42 (Mycostatin Powder) 1 applic Q12HR TOPICAL 01/08/16 21:00 07/04/16 09:51 (Pill Splitter) 1 ea UNSCH PRN OTHER 01/14/16 08:30 (Zantac Liq) 150 mg Q24H PO 01/18/16 09:00 07/04/16 09:50 (Acetic Acid 0.25% Irr Btl) 10 ml Q8HR IRRIGATION 02/05/16 16:00 07/04/16 14:15 (Ativan Inj) 0.5 mg Q4H PRN IV PUSH 03/07/16 23:00 (Paxil Liq) 20 mg DAILY@1900 PEG 03/12/16 19:00 07/03/16 18:43 (Levemir Inj) 35 units HS SQ 03/24/16 21:00 07/03/16 22:10 (Lacrilube Opht Oint) 1 applic Q12HR EACH EYE 04/10/16 11:00 07/04/16 09:51 (Levsin) 0.25 mg Q4H PRN G-TUBE 04/11/16 10:30 05/29/16 09:18 (Zofran Inj) 4 mg Q6HR PRN IV PUSH 04/14/16 19:45 (Free Water) 200 ml Q4HR TUBE 04/16/16 12:00 07/04/16 16:00 ([place] 5-325 Mg) 1 tab Q6HR PEG 04/18/16 18:00 07/04/16 12:00 (D50w (Vial) Inj) 25 ml UNSCH PRN IV 04/20/16 12:00 (Glucagon Inj) 1 mg UNSCH PRN IM/SQ 04/20/16 12:00 (Cardizem) 90 mg QID PEG 04/25/16 21:00 07/04/16 12:00 (K-Lyte Cl Eff) 25 meq DAILY TUBE 05/28/16 09:00 07/04/16 09:50 (Aspirin) 325 mg DAILY TUBE 05/27/16 11:40 07/04/16 09:51 (Colace Liq) 100 mg DAILY PRN PO 05/27/16 11:45 (Lopressor) 50 mg BID PO 05/29/16 21:00 07/04/16 09:50 ([place] 5-325 Mg) 1 tab Q6H PRN TUBE 06/03/16 03:00 06/27/16 22:16 Lactobacillus Acidophilus 1 tab 1 tab TID PEG 06/07/16 13:00 07/04/16 12:00 (Rocephin Inj/NS Inj) 100 ml @ 200 mls/hr Q24H IV 06/10/16 12:00 07/04/16 12:00 (Heparin Inj) 5,000 units Q8HR SQ 06/11/16 14:00 07/04/16 14:16 Date of Insertion: Jun 06, 2016 A/P Problem List: (1) CVA (cerebral vascular accident) ICD Code: I63.9 Status: Acute (2) A-fib ICD Code: I48.91 Status: Chronic (3) DM (diabetes mellitus) ICD Code: E11.9 Status: Chronic Assessment and Plan 07/04: On 28% FiO2. Secretions appear improved. The patient is alert. Questions from family were answered. Tolerating tube feeds. CBC and BMP were stable. 60-year-old male with past medical history of paroxysmal atrial fibrillation, hypertension, stage III a non-Hodgkin's lymphoma status post a chemotherapy last year. He came to the hospital with altered mental status, facial droop. 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 Non verbal. Continue Keppra. Palliative care following. PT/OT signed off. Chronic respiratory failure: Secondary to CVA, Status post tracheostomy. Continue pulmonary toilet and neb treatments as needed. Continue bronchodilators Xopenex, trach care, Levsin prn, suctioning. A-fib: Continue rate control with Cardizem and metoprolol with holding parameters. Echocardiogram completed in November shows preserved EF. Coumadin discontinued secondary to bleeding. Continue with ASA and prophylactic heparin dose. If persistently without any bleeding, could consider restarting Coumadin. CBC stable. Heart rate stable. Continue to monitor. History of Non-Hodgkin lymphoma: s/p brain biopsy on December 13, by Neurosurgery, Dr. Marin. Pathology consistent with acute infarct without evidence of lymphoma. Oncology signed off with no active oncology issues. DM (diabetes mellitus): HgbA1c 7%. Continue Levemir 35u daily. Continue sliding scale coverage. Monitor accuchecks and adjust the regimen as needed. Blood sugar stable 07/04. Continue to monitor as needed. Decubitus ulcer stage IV: Continue Rocephin indefinitely (on lactinex) per ID until OM is ruled out with bone biopsy and watch for further bleeding (off warfarin due to bleeding which appears to have resolved). Continue dressing changes twice daily per wound care recommendations. Continue pressure relief measures, mattress, Turning and positioning. Patient's family declined a diverting colostomy. Continue wound care. Wound is growing Klebsiella. Continue ceftriaxone per infectious disease. GI/Nutrition: Continue Nepro at 55 cc/hr per dietitian recommendations. Free water flushes. Potassium supplement. DVT px - SCDs. Discharge Planning Awaiting clinical improvement. Problem Qualifiers (1) DM (diabetes mellitus): Qualified Code: E11.9 - Type 2 diabetes mellitus without complications Gerald Calhoun DO Jul 04, 2016 17:15
[2016-07-04] MEDS: PARoxetine HCL SUSP 20 MG/10 ML UDC PEG SCH (18:32)
[2016-07-04] MEDS: DOCUSATE SODIUM 100 MG/10 ML UDC PO PRN (18:42)
[2016-07-04] MEDS: INSULIN DETEMIR 100 UNITS/ML VIAL SQ SCH (23:57)
[2016-07-05] VITALS (9 sets, daily range): BP systolic 112–141; BP diastolic 63–80; PULSE 68–88; RESP 20; TEMP 96.1–99; O2SAT 95–98
[2016-07-05] MEDS: FREE WATER TUBE SCH ×5 (04:00→20:00)
[2016-07-05] MEDS: ACETIC ACID 0.25% SOLN 1000 ML IRR BTL IRRIGATION SCH ×3 (06:00→21:50)
[2016-07-05] MEDS: HEPARIN SODIUM - SQ 10,000 UNITS/ML VIAL SQ SCH ×3 (07:44→21:49)
[2016-07-05] MEDS: ACETAMINOPHEN/HYDROcodone 325 MG/5 MG TAB PEG SCH ×4 (07:44→23:59)
[2016-07-05] MEDS: HYOSCYAMINE 0.125 MG TAB G-TUBE PRN ×2 (07:47→21:48)
[2016-07-05] MEDS: ASPIRIN 325 MG TAB TUBE SCH (09:00)
[2016-07-05] MEDS: METOPROLOL TARTRATE 50 MG TAB PO SCH ×2 (09:40→21:48)
[2016-07-05] MEDS: DILTIAZEM HCL 90 MG TAB PEG SCH ×4 (09:40→21:48)
[2016-07-05] MEDS: LACTOBACILLUS ACIDOPHILUS TAB PEG SCH ×3 (09:40→18:00)
[2016-07-05] MEDS: levETIRAcetam 500 MG/5 ML UDC TUBE SCH ×2 (09:40→21:49)
[2016-07-05] MEDS: RANITIDINE HCL SYRUP 150 MG/10 ML UDC PO SCH (09:40)
[2016-07-05] MEDS: POTASSIUM CHLORIDE 25 MEQ EFFERVESCENT TAB TUBE SCH (09:41)
[2016-07-05] MEDS: NYSTATIN 100,000 U/GM PWD 15 GM BTL TOPICAL SCH ×2 (09:41→21:00)
[2016-07-05] MEDS: ARTIFICIAL TEARS OPTH OINT 3.5 APPLIC/3.5 GM TUBO EACH EYE SCH ×2 (09:41→21:00)
[2016-07-05] MEDS: cefTRIAXone INJ 2,000 MG in SODIUM CHLORIDE 0.9% INJ 100 ML IV SCH (11:32)
--- NOTE | 2016-07-05 16:12 | HHI.PR ---
Subjective Remarks The patient appeared comfortable. Nursing and family were at the bedside. No acute concerns from nursing. Objective Vitals Vital Signs Date Time Temp Pulse Resp B/P Pulse Ox O2 Delivery O2 Flow Rate FiO2 07/05/16 10:33 28 07/05/16 10:32 96 Trach Collar 28 07/05/16 10:32 96 Trach Collar 28 07/05/16 08:11 98.5 80 20 121/80 97 07/05/16 07:00 73 07/05/16 06:00 Trach Collar 07/05/16 04:00 96.1 70 20 117/69 98 07/05/16 04:00 Trach Collar 6.00 28 07/05/16 00:56 18 07/05/16 00:00 97.7 88 20 141/80 98 07/04/16 23:05 73 07/04/16 20:00 97.3 76 20 130/75 96 07/04/16 20:00 Trach Collar 6.00 28 07/04/16 18:11 98 T-piece 6.00 28 07/04/16 16:35 98.1 72 20 117/70 100 I/O 07/04/16 07/04/16 07/04/16 07/05/16 07/05/16 07/05/16 07:00 15:00 23:00 07:00 15:00 23:00 Intake Total 712 ml Output Total 200 ml 600 ml 1000 ml Balance -200 ml -600 ml -1000 ml 712 ml Tube Feeding 712 ml Output Urine Total 200 ml 600 ml 1000 ml # Bowel Movements 1 1 2 Result Diagram: 07/04/16 0702 07/04/16 0702 Imaging Last Impressions Chest X-Ray 05/16/16 0000 Signed Impressions: Service Date/Time: April 17:35 - CONCLUSION: 1. Tracheostomy in satisfactory position. Mild basilar atelectasis. Durga Dotson MD Abdomen/Pelvis CT 04/12/16 0000 Signed Impressions: Service Date/Time: Tuesday, April 12, 2016 20:52 - CONCLUSION: 1. 6.4 cm necrotic mass or abscess in the soft tissues posteriorly just below the sacrum associated with some bony destructive change of the lower most sacrum and coccyx with inflammatory changes extending into the ischiorectal fossa and into the presacral retroperitoneum predominantly on the left side. There is associated fairly marked mural thickening of the anal verge and rectum. 2. There is gastrostomy and Arevalo catheter present. Stable abdominal aortic aneurysm. Durga Dotson MD Head Magnetic Resonance Angiography 03/05/16 0000 Signed Impressions: Service Date/Time: Saturday, March 05, 2016 09:26 - CONCLUSION: Persistent high-grade subtotal occlusive stenotic lesions in the distal right vertebral artery and proximal basilar artery with significant improvement in flow and recanalization following initial presentation of thrombosis. Stable interstitial circulation without significant stenosis. Ernesto Kulkarni MD Brain MRI 03/05/16 Signed Impressions: Service Date/Time: Saturday, March 05, 2016 09:26 - CONCLUSION: Evolving brainstem and bilateral occipital lobe infarcts with evidence of subacute hemorrhagic products. There is decreasing restricted diffusion and increasing loss of volume characteristic of a subacute to chronic infarct. No evidence of acute infarct, acute hemorrhage mass or edema. Ernesto Kulkarni MD Head CT 01/16/16 Signed Impressions: Service Date/Time: Saturday, January 16, 2016 10:51 - CONCLUSION: No extensive low density in the brainstem colin more prominent in the right the left extending into the right middle cerebellar peduncle consistent with brainstem infarct nonhemorrhagic acute Wellington West MD Abdomen X-Ray 01/14/16 0000 Signed Impressions: Service Date/Time: Thursday, January 14, 2016 10:19 - CONCLUSION: Moderate stool; otherwise, negative. 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 No evidence of carotid stenosis. Glen Zamora MD Head/Brain Mag Res Venography 12/22/15 0000 Signed Impressions: Service Date/Time: Tuesday, December 22, 2015 09:22 - CONCLUSION: Normal MRV. Jonel Jones Jr., MD Objective Remarks GENERAL: Resting comfortably. SKIN: Warm and dry. HEAD: Normocephalic. EYES: No scleral icterus. No injection or drainage. NECK: trach in place. CARDIOVASCULAR: Regular rate and rhythm without murmurs, gallops, or rubs. RESPIRATORY: Breath sounds equal bilaterally. No accessory muscle use. GASTROINTESTINAL: Abdomen soft, non-tender, nondistended. PEG tube in place. EXTREMITIES: TR edema of hands and legs. NEUROLOGICAL: Awake, alert. Does follow some commands. Procedures 01/02/16 PEG placement 01/02/16 tracheostomy Medications and IVs Current Medications Medications (Trade) Dose Ordered Sig/Junior Route Start Time Stop Time Status Last Admin (NS Flush) 2 ml UNSCH PRN IVF 12/21/15 06:00 06/29/16 21:29 (Keppra Liq) 500 mg Q12HR TUBE 12/27/15 21:00 07/05/16 09:40 (Tylenol 650 Mg/ 20 ml Liq) 650 mg Q6H PRN TUBE 12/30/15 15:15 04/22/16 14:42 (Mycostatin Powder) 1 applic Q12HR TOPICAL 01/08/16 21:00 07/05/16 09:41 (Pill Splitter) 1 ea UNSCH PRN OTHER 01/14/16 08:30 (Zantac Liq) 150 mg Q24H PO 01/18/16 09:00 07/05/16 09:40 (Acetic Acid 0.25% Irr Btl) 10 ml Q8HR IRRIGATION 02/05/16 16:00 07/05/16 13:42 (Ativan Inj) 0.5 mg Q4H PRN IV PUSH 03/07/16 23:00 (Paxil Liq) 20 mg DAILY@1900 PEG 03/12/16 19:00 07/04/16 18:32 (Levemir Inj) 35 units HS SQ 03/24/16 21:00 07/04/16 23:57 (Lacrilube Opht Oint) 1 applic Q12HR EACH EYE 04/10/16 11:00 07/05/16 09:41 (Levsin) 0.25 mg Q4H PRN G-TUBE 04/11/16 10:30 07/05/16 07:47 (Zofran Inj) 4 mg Q6HR PRN IV PUSH 04/14/16 19:45 (Free Water) 200 ml Q4HR TUBE 04/16/16 12:00 07/05/16 11:32 ([place] 5-325 Mg) 1 tab Q6HR PEG 04/18/16 18:00 07/05/16 11:32 (D50w (Vial) Inj) 25 ml UNSCH PRN IV 04/20/16 12:00 (Glucagon Inj) 1 mg UNSCH PRN IM/SQ 04/20/16 12:00 (Cardizem) 90 mg QID PEG 04/25/16 21:00 07/05/16 13:42 (K-Lyte Cl Eff) 25 meq DAILY TUBE 05/28/16 09:00 07/05/16 09:41 (Aspirin) 325 mg DAILY TUBE 05/27/16 11:40 07/05/16 09:00 (Colace Liq) 100 mg DAILY PRN PO 05/27/16 11:45 07/04/16 18:42 (Lopressor) 50 mg BID PO 05/29/16 21:00 07/05/16 09:40 ([place] 5-325 Mg) 1 tab Q6H PRN TUBE 06/03/16 03:00 06/27/16 22:16 Lactobacillus Acidophilus 1 tab 1 tab TID PEG 06/07/16 13:00 07/05/16 13:42 (Rocephin Inj/NS Inj) 100 ml @ 200 mls/hr Q24H IV 06/10/16 12:00 07/05/16 11:32 (Heparin Inj) 5,000 units Q8HR SQ 06/11/16 14:00 07/05/16 13:41 Date of Insertion: Jun 06, 2016 A/P Problem List: (1) CVA (cerebral vascular accident) ICD Code: I63.9 Status: Acute (2) A-fib ICD Code: I48.91 Status: Chronic (3) DM (diabetes mellitus) ICD Code: E11.9 Status: Chronic Assessment and Plan 60-year-old male with past medical history of paroxysmal atrial fibrillation, hypertension, stage III a non-Hodgkin's lymphoma status post a chemotherapy last year. He came to the hospital with altered mental status, facial droop. 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 Non verbal. Continue Keppra. Palliative care following. PT/OT signed off. Chronic respiratory failure: Secondary to CVA, Status post tracheostomy. Continue pulmonary toilet and neb treatments as needed. Continue bronchodilators Xopenex, trach care, Levsin prn, suctioning. On 28% Os 07/05. A-fib: Continue rate control with Cardizem and metoprolol with holding parameters. Echocardiogram completed in November shows preserved EF. Coumadin discontinued secondary to bleeding. Continue with ASA and prophylactic heparin dose. If persistently without any bleeding, could consider restarting Coumadin. CBC stable. Heart rate stable 07/05. Continue to monitor. History of Non-Hodgkin lymphoma: s/p brain biopsy on December 13, by Neurosurgery, Dr. Marin. Pathology consistent with acute infarct without evidence of lymphoma. Oncology signed off with no active oncology issues. DM (diabetes mellitus): HgbA1c 7%. Continue Levemir 35u daily. Continue sliding scale coverage. Monitor accuchecks and adjust the regimen as needed. Decubitus ulcer stage IV: Continue Rocephin indefinitely (on lactinex) per ID until OM is ruled out with bone biopsy and watch for further bleeding (off warfarin due to bleeding which appears to have resolved). Continue dressing changes twice daily per wound care recommendations. Continue pressure relief measures, mattress, Turning and positioning. Patient's family declined a diverting colostomy. Continue wound care. Wound is growing Klebsiella. Continue ceftriaxone. Discussed with ID 07/05, continue antibiotics for however long pt is here and then possibly could switch to PO upon discharge. GI/Nutrition: Continue Nepro at 55 cc/hr per dietitian recommendations. Free water flushes. Potassium supplement. Tolerating tube feeds 07/05. DVT px - SCDs. Discharge Planning Awaiting clinical improvement. Problem Qualifiers (1) DM (diabetes mellitus): Qualified Code: E11.9 - Type 2 diabetes mellitus without complications Gerald Calhoun DO Jul 05, 2016 16:12
[2016-07-05] MEDS: PARoxetine HCL SUSP 20 MG/10 ML UDC PEG SCH (19:00)
[2016-07-05] MEDS: RESP: LEVALBUTEROL HYDROCHLORIDE 0.63 MG/3 ML NEB (PRN) NEB (19:26)
[2016-07-05] MEDS: ONDANSETRON HCL 4 MG/2 ML VIAL IV PUSH PRN (21:49)
[2016-07-05] MEDS: INSULIN DETEMIR 100 UNITS/ML VIAL SQ SCH (21:50)
[2016-07-06] VITALS (9 sets, daily range): BP systolic 99–136; BP diastolic 60–78; PULSE 72–95; RESP 17–20; TEMP 96.5–99.4; O2SAT 95–99
[2016-07-06] MEDS: FREE WATER TUBE SCH ×7 (04:00→23:49)
[2016-07-06] MEDS: HEPARIN SODIUM - SQ 10,000 UNITS/ML VIAL SQ SCH ×3 (05:54→21:17)
[2016-07-06] MEDS: ACETAMINOPHEN/HYDROcodone 325 MG/5 MG TAB PEG SCH ×5 (05:55→23:49)
[2016-07-06] MEDS: ACETIC ACID 0.25% SOLN 1000 ML IRR BTL IRRIGATION SCH ×3 (05:55→21:15)
[2016-07-06] MEDS: ARTIFICIAL TEARS OPTH OINT 3.5 APPLIC/3.5 GM TUBO EACH EYE SCH ×2 (08:17→21:00)
[2016-07-06] MEDS: levETIRAcetam 500 MG/5 ML UDC TUBE SCH ×2 (08:17→21:17)
[2016-07-06] MEDS: RANITIDINE HCL SYRUP 150 MG/10 ML UDC PO SCH (08:17)
[2016-07-06] MEDS: METOPROLOL TARTRATE 50 MG TAB PO SCH ×2 (08:17→21:00)
[2016-07-06] MEDS: POTASSIUM CHLORIDE 25 MEQ EFFERVESCENT TAB TUBE SCH (08:17)
[2016-07-06] MEDS: LACTOBACILLUS ACIDOPHILUS TAB PEG SCH ×3 (08:17→18:36)
[2016-07-06] MEDS: ASPIRIN 325 MG TAB TUBE SCH (08:17)
[2016-07-06] MEDS: DILTIAZEM HCL 90 MG TAB PEG SCH ×5 (08:17→21:00)
[2016-07-06] MEDS: NYSTATIN 100,000 U/GM PWD 15 GM BTL TOPICAL SCH ×2 (08:17→21:00)
--- NOTE | 2016-07-06 10:52 | HHI.PR ---
Subjective Remarks Pt not talkative. Eyes open. at bedside. No concerns other that she noted that oxygen sats were 94% and ask if that is ok. Objective Vitals Vital Signs Date Time Temp Pulse Resp B/P Pulse Ox O2 Delivery O2 Flow Rate FiO2 07/06/16 08:17 T-Piece 28 Humidified 07/06/16 08:00 96.7 76 19 136/78 96 07/06/16 05:29 97.0 79 20 125/69 98 07/06/16 00:00 99.4 76 20 108/63 95 07/05/16 21:19 99.0 88 20 117/63 95 07/05/16 20:00 T-Piece 28 Humidified 07/05/16 20:00 79 07/05/16 19:38 96 T-piece 5.00 28 07/05/16 16:23 98.7 68 20 112/66 96 I/O 07/05/16 07/05/16 07/05/16 07/06/16 07/06/16 07/06/16 06:59 14:59 22:59 06:59 14:59 22:59 Intake Total 712 ml 867 ml 839 ml Output Total 1000 ml 1400 ml 500 ml Balance -1000 ml 712 ml -533 ml 339 ml Tube Feeding 712 ml 467 ml 439 ml Other 400 ml 400 ml Output Urine Total 1000 ml 1400 ml 500 ml # Bowel Movements 2 2 1 Result Diagram: 07/04/16 0702 07/04/16 0702 Imaging Last Impressions Chest X-Ray 05/16/16 0000 Signed Impressions: Service Date/Time: April 17:35 - CONCLUSION: 1. Tracheostomy in satisfactory position. Mild basilar atelectasis. Durga Dotson MD Abdomen/Pelvis CT 04/12/16 0000 Signed Impressions: Service Date/Time: Tuesday, April 12, 2016 20:52 - CONCLUSION: 1. 6.4 cm necrotic mass or abscess in the soft tissues posteriorly just below the sacrum associated with some bony destructive change of the lower most sacrum and coccyx with inflammatory changes extending into the ischiorectal fossa and into the presacral retroperitoneum predominantly on the left side. There is associated fairly marked mural thickening of the anal verge and rectum. 2. There is gastrostomy and Arevalo catheter present. Stable abdominal aortic aneurysm. Durga Dotson MD Head Magnetic Resonance Angiography 03/05/16 0000 Signed Impressions: Service Date/Time: Saturday, March 05, 2016 09:26 - CONCLUSION: Persistent high-grade subtotal occlusive stenotic lesions in the distal right vertebral artery and proximal basilar artery with significant improvement in flow and recanalization following initial presentation of thrombosis. Stable interstitial circulation without significant stenosis. 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 There is decreasing restricted diffusion and increasing loss of volume characteristic of a subacute to chronic infarct. No evidence of acute infarct, acute hemorrhage mass or edema. Ernesto Kulkarni MD Head CT 01/16/16 0000 Signed Impressions: Service Date/Time: Saturday, January 16, 2016 10:51 - CONCLUSION: No extensive low density in the brainstem colin more prominent in the right the left extending into the right middle cerebellar peduncle consistent with brainstem infarct nonhemorrhagic acute Wellington West MD Abdomen X-Ray 01/14/16 0000 Signed Impressions: Service Date/Time: Thursday, January 14, 2016 10:19 - CONCLUSION: Moderate stool; otherwise, negative. 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 No evidence of carotid stenosis. Glen Zamora MD Head/Brain Mag Res Venography 12/22/15 0000 Signed Impressions: Service Date/Time: Tuesday, December 22, 2015 09:22 - CONCLUSION: Normal MRV. Jonel Jones Jr., MD Objective Remarks GENERAL: Resting comfortably. EYES: No scleral icterus. No injection or drainage. CARDIOVASCULAR: Regular rate and rhythm without murmurs RESPIRATORY: Breath sounds equal bilaterally. No accessory muscle use. Trach in place. GASTROINTESTINAL: Abdomen soft, non-tender, nondistended. PEG tube in place. EXTREMITIES: TR edema of hands and legs. NEUROLOGICAL: Awake, alert. has some movement his index finger on the right upon request Procedures 01/02/16 PEG placement 01/02/16 tracheostomy Date of Insertion: Jun 06, 2016 A/P Problem List: (1) CVA (cerebral vascular accident) ICD Code: I63.9 Status: Acute (2) A-fib ICD Code: I48.91 Status: Chronic (3) DM (diabetes mellitus) ICD Code: E11.9 Status: Chronic Assessment and Plan Update in [facility] 07/06/16: no new changes to current management. 60-year-old male with past medical history of paroxysmal atrial fibrillation, hypertension, stage III a non-Hodgkin's lymphoma status post a chemotherapy last year. He came to the hospital with altered mental status, facial droop. 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 Non verbal. Continue Keppra. Palliative care following. PT/OT signed off. Chronic respiratory failure: Secondary to CVA, Status post tracheostomy. Continue pulmonary toilet and neb treatments as needed. Continue bronchodilators Xopenex, trach care, Levsin prn, suctioning. On 28% Os 07/05. A-fib: Continue rate control with Cardizem and metoprolol with holding parameters. Echocardiogram completed in November shows preserved EF. Coumadin discontinued secondary to bleeding. Continue with ASA and prophylactic heparin dose. If persistently without any bleeding, could consider restarting Coumadin. CBC stable. Heart rate stable 07/05. Continue to monitor. History of Non-Hodgkin lymphoma: s/p brain biopsy on December 13, by Neurosurgery, Dr. Marin. Pathology consistent with acute infarct without evidence of lymphoma. Oncology signed off with no active oncology issues. DM (diabetes mellitus): HgbA1c 7%. Continue Levemir 35u daily. Continue sliding scale coverage. Monitor accuchecks and adjust the regimen as needed. Decubitus ulcer stage IV: Continue Rocephin indefinitely (on lactinex) per ID until OM is ruled out with bone biopsy and watch for further bleeding (off warfarin due to bleeding which appears to have resolved). Continue dressing changes twice daily per wound care recommendations. Continue pressure relief measures, mattress, Turning and positioning. Patient's family declined a diverting colostomy. Continue wound care. Wound is growing Klebsiella. Continue ceftriaxone. Discussed with ID 07/05, continue antibiotics for however long pt is here and then possibly could switch to PO upon discharge. GI/Nutrition: Continue Nepro at 55 cc/hr per dietitian recommendations. Free water flushes. Potassium supplement. Tolerating tube feeds 07/05. DVT px - SCDs. Discharge Planning Awaiting clinical improvement. Difficult placement per CM notes. Problem Qualifiers (1) DM (diabetes mellitus): Qualified Code: E11.9 - Type 2 diabetes mellitus without complications Rekha Foster MD Jul 06, 2016 10:52
[2016-07-06] MEDS: cefTRIAXone INJ 2,000 MG in SODIUM CHLORIDE 0.9% INJ 100 ML IV SCH (12:30)
[2016-07-06] MEDS: PARoxetine HCL SUSP 20 MG/10 ML UDC PEG SCH (18:36)
[2016-07-06] MEDS: INSULIN DETEMIR 100 UNITS/ML VIAL SQ SCH (21:00)
[2016-07-06] MEDS: HYOSCYAMINE 0.125 MG TAB G-TUBE PRN (21:19)
[2016-07-07] VITALS (11 sets, daily range): BP systolic 108–135; BP diastolic 62–84; PULSE 68–86; RESP 16–20; TEMP 97–98.7; O2SAT 94–100
[2016-07-07] MEDS: FREE WATER TUBE SCH ×5 (03:17→20:00)
[2016-07-07] MEDS: ACETIC ACID 0.25% SOLN 1000 ML IRR BTL IRRIGATION SCH ×3 (05:51→22:15)
[2016-07-07] MEDS: ACETAMINOPHEN/HYDROcodone 325 MG/5 MG TAB PEG SCH ×3 (05:51→18:16)
[2016-07-07] MEDS: HEPARIN SODIUM - SQ 10,000 UNITS/ML VIAL SQ SCH ×3 (05:51→22:14)
[2016-07-07] MEDS: LACTOBACILLUS ACIDOPHILUS TAB PEG SCH ×3 (07:42→18:15)
[2016-07-07] MEDS: METOPROLOL TARTRATE 50 MG TAB PO SCH ×2 (07:42→22:11)
[2016-07-07] MEDS: levETIRAcetam 500 MG/5 ML UDC TUBE SCH ×2 (07:42→22:12)
[2016-07-07] MEDS: DILTIAZEM HCL 90 MG TAB PEG SCH ×4 (07:42→22:11)
[2016-07-07] MEDS: ASPIRIN 325 MG TAB TUBE SCH (07:42)
[2016-07-07] MEDS: POTASSIUM CHLORIDE 25 MEQ EFFERVESCENT TAB TUBE SCH (07:42)
[2016-07-07] MEDS: RANITIDINE HCL SYRUP 150 MG/10 ML UDC PO SCH (07:42)
[2016-07-07] MEDS: NYSTATIN 100,000 U/GM PWD 15 GM BTL TOPICAL SCH ×2 (07:43→22:15)
[2016-07-07] MEDS: ARTIFICIAL TEARS OPTH OINT 3.5 APPLIC/3.5 GM TUBO EACH EYE SCH ×2 (07:44→21:00)
--- NOTE | 2016-07-07 08:40 | HHI.PR ---
Subjective Remarks No change in status. and daughter at bedside. No concerns at this time. Objective Vitals Vital Signs Date Time Temp Pulse Resp B/P Pulse Ox O2 Delivery O2 Flow Rate FiO2 07/07/16 07:45 99 T-Piece 28 Humidified 07/07/16 04:00 98.7 76 20 123/75 94 07/07/16 00:00 97.3 80 18 123/72 97 07/06/16 22:20 97 T-piece 28 07/06/16 20:00 81 07/06/16 20:00 97.8 95 20 99/70 96 07/06/16 20:00 T-Piece 28 Humidified 07/06/16 16:00 96.5 88 18 113/68 99 07/06/16 14:00 96.5 88 18 113/68 99 07/06/16 12:00 96.5 72 17 104/60 98 I/O 07/06/16 07/06/16 07/06/16 07/07/16 07/07/16 07/07/16 07:00 15:00 23:00 07:00 15:00 23:00 Intake Total 839 ml 809 ml 823 ml Output Total 500 ml 1400 ml 600 ml Balance 339 ml -591 ml 223 ml IV Total 0 ml 0 ml Tube Feeding 439 ml 409 ml 423 ml Other 400 ml 400 ml 400 ml Output Urine Total 500 ml 1400 ml 600 ml # Bowel Movements 1 3 Result Diagram: 07/04/16 0702 07/04/16 0702 Imaging Last Impressions Chest X-Ray 05/16/16 0000 Signed Impressions: Service Date/Time: April 17:35 - CONCLUSION: 1. Tracheostomy in satisfactory position. Mild basilar atelectasis. Durga Dotson MD Abdomen/Pelvis CT 04/12/16 0000 Signed Impressions: Service Date/Time: Tuesday, April 12, 2016 20:52 - CONCLUSION: 1. 6.4 cm necrotic mass or abscess in the soft tissues posteriorly just below the sacrum associated with some bony destructive change of the lower most sacrum and coccyx with inflammatory changes extending into the ischiorectal fossa and into the presacral retroperitoneum predominantly on the left side. There is associated fairly marked mural thickening of the anal verge and rectum. 2. There is gastrostomy and Arevalo catheter present. Stable abdominal aortic aneurysm. Durga Dotson MD Head Magnetic Resonance Angiography 03/05/16 0000 Signed Impressions: Service Date/Time: Saturday, March 05, 2016 09:26 - CONCLUSION: Persistent high-grade subtotal occlusive stenotic lesions in the distal right vertebral artery and proximal basilar artery with significant improvement in flow and recanalization following initial presentation of thrombosis. Stable interstitial circulation without significant stenosis. 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 There is decreasing restricted diffusion and increasing loss of volume characteristic of a subacute to chronic infarct. No evidence of acute infarct, acute hemorrhage mass or edema. Ernesto Kulkarni MD Head CT 01/16/16 0000 Signed Impressions: Service Date/Time: Saturday, January 16, 2016 10:51 - CONCLUSION: No extensive low density in the brainstem colin more prominent in the right the left extending into the right middle cerebellar peduncle consistent with brainstem infarct nonhemorrhagic acute Wellington West MD Abdomen X-Ray 01/14/16 0000 Signed Impressions: Service Date/Time: Thursday, January 14, 2016 10:19 - CONCLUSION: Moderate stool; otherwise, negative. 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 No evidence of carotid stenosis. Glen Zamora MD Head/Brain Mag Res Venography 12/22/15 0000 Signed Impressions: Service Date/Time: Tuesday, December 22, 2015 09:22 - CONCLUSION: Normal MRV. Jonel Jones Jr., MD Objective Remarks GENERAL: Resting comfortably. EYES: No scleral icterus. No injection or drainage. CARDIOVASCULAR: Regular rate and rhythm without murmurs RESPIRATORY: Breath sounds equal bilaterally. No accessory muscle use. Trach in place. GASTROINTESTINAL: Abdomen soft, non-tender, nondistended. PEG tube in place. EXTREMITIES: TR edema of hands and legs. NEUROLOGICAL: Awake, alert. has some movement his index finger on the right upon request but not much noted on the left Procedures 01/02/16 PEG placement 01/02/16 tracheostomy Date of Insertion: Jun 06, 2016 A/P Problem List: (1) CVA (cerebral vascular accident) ICD Code: I63.9 Status: Acute (2) A-fib ICD Code: I48.91 Status: Chronic (3) DM (diabetes mellitus) ICD Code: E11.9 Status: Chronic Assessment and Plan Update in Mgmt 07/06/16: no new changes to current management. Update in Mgmt 07/07/16: no new changes to current management. 60-year-old male with past medical history of paroxysmal atrial fibrillation, hypertension, stage III a non-Hodgkin's lymphoma status post a chemotherapy last year. He came to the hospital with altered mental status, facial droop. 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 Non verbal. Continue Keppra. Palliative care following. PT/OT signed off. Chronic respiratory failure: Secondary to CVA, Status post tracheostomy. Continue pulmonary toilet and neb treatments as needed. Continue bronchodilators Xopenex, trach care, Levsin prn, suctioning. On 28% Os 07/05. A-fib: Continue rate control with Cardizem and metoprolol with holding parameters. Echocardiogram completed in November shows preserved EF. Coumadin discontinued secondary to bleeding. Continue with ASA and prophylactic heparin dose. If persistently without any bleeding, could consider restarting Coumadin. CBC stable. Heart rate stable 07/05. Continue to monitor. History of Non-Hodgkin lymphoma: s/p brain biopsy on December 13, by Neurosurgery, Dr. Marin. Pathology consistent with acute infarct without evidence of lymphoma. Oncology signed off with no active oncology issues. DM (diabetes mellitus): HgbA1c 7%. Continue Levemir 35u daily. Continue sliding scale coverage. Monitor accuchecks and adjust the regimen as needed. Decubitus ulcer stage IV: Continue Rocephin indefinitely (on lactinex) per ID until OM is ruled out with bone biopsy and watch for further bleeding (off warfarin due to bleeding which appears to have resolved). Continue dressing changes twice daily per wound care recommendations. Continue pressure relief measures, mattress, Turning and positioning. Patient's family declined a diverting colostomy. Continue wound care. Wound is growing Klebsiella. Continue ceftriaxone. Discussed with ID 07/05, continue antibiotics for however long pt is here and then possibly could switch to PO upon discharge. GI/Nutrition: Continue Nepro at 55 cc/hr per dietitian recommendations. Free water flushes. Potassium supplement. Tolerating tube feeds 07/05. DVT px - SCDs. Discharge Planning Awaiting clinical improvement. Difficult placement per CM notes. Problem Qualifiers (1) DM (diabetes mellitus): Qualified Code: E11.9 - Type 2 diabetes mellitus without complications Rekha Foster MD Jul 07, 2016 08:40
[2016-07-07] MEDS: cefTRIAXone INJ 2,000 MG in SODIUM CHLORIDE 0.9% INJ 100 ML IV SCH (12:05)
[2016-07-07] MEDS: PARoxetine HCL SUSP 20 MG/10 ML UDC PEG SCH (18:16)
[2016-07-07] MEDS: INSULIN DETEMIR 100 UNITS/ML VIAL SQ SCH (22:12)
[2016-07-08] VITALS (10 sets, daily range): BP systolic 102–127; BP diastolic 64–77; PULSE 69–80; RESP 18–20; TEMP 96.9–97.8; O2SAT 96–100
[2016-07-08] MEDS: DOCUSATE SODIUM 100 MG/10 ML UDC PO PRN (01:24)
[2016-07-08] MEDS: ACETAMINOPHEN/HYDROcodone 325 MG/5 MG TAB PEG SCH ×4 (01:25→17:52)
[2016-07-08] MEDS: FREE WATER TUBE SCH ×6 (04:00→20:00)
[2016-07-08] MEDS: HEPARIN SODIUM - SQ 10,000 UNITS/ML VIAL SQ SCH ×3 (06:27→21:27)
[2016-07-08] MEDS: ACETIC ACID 0.25% SOLN 1000 ML IRR BTL IRRIGATION SCH ×3 (06:28→21:28)
[2016-07-08] MEDS: ASPIRIN 325 MG TAB TUBE SCH (08:15)
[2016-07-08] MEDS: LACTOBACILLUS ACIDOPHILUS TAB PEG SCH ×3 (08:15→17:50)
[2016-07-08] MEDS: levETIRAcetam 500 MG/5 ML UDC TUBE SCH ×2 (08:15→21:27)
[2016-07-08] MEDS: POTASSIUM CHLORIDE 25 MEQ EFFERVESCENT TAB TUBE SCH (08:15)
[2016-07-08] MEDS: METOPROLOL TARTRATE 50 MG TAB PO SCH ×2 (08:15→21:28)
[2016-07-08] MEDS: DILTIAZEM HCL 90 MG TAB PEG SCH ×4 (08:15→21:00)
[2016-07-08] MEDS: RANITIDINE HCL SYRUP 150 MG/10 ML UDC PO SCH (08:15)
[2016-07-08] MEDS: ARTIFICIAL TEARS OPTH OINT 3.5 APPLIC/3.5 GM TUBO EACH EYE SCH ×2 (09:00→21:00)
[2016-07-08] MEDS: NYSTATIN 100,000 U/GM PWD 15 GM BTL TOPICAL SCH ×2 (09:00→21:00)
[2016-07-08] MEDS: cefTRIAXone INJ 2,000 MG in SODIUM CHLORIDE 0.9% INJ 100 ML IV SCH (12:19)
--- NOTE | 2016-07-08 13:11 | HHI.PR ---
Subjective Remarks No change today. Family member at bedside. concerned about airway noise Objective Vitals Vital Signs Date Time Temp Pulse Resp B/P Pulse Ox O2 Delivery O2 Flow Rate FiO2 07/08/16 12:36 95 T-Piece 28 Humidified 07/08/16 12:30 98 Blow-by 28 07/08/16 12:00 97.3 69 20 118/74 100 07/08/16 08:00 97.5 78 18 127/77 98 07/08/16 04:00 97.8 80 20 123/77 96 07/08/16 00:00 97.7 72 20 121/69 97 07/07/16 22:09 80 135/84 07/07/16 22:00 97 T-Piece 28 Humidified 07/07/16 20:31 96 T-piece 6.00 28 07/07/16 20:30 96 T-piece 6.00 28 07/07/16 20:00 84 07/07/16 20:00 97.3 82 20 116/68 97 07/07/16 16:29 97.0 86 19 131/76 100 I/O 07/07/16 07/07/16 07/07/16 07/08/16 07/08/16 07/08/16 07:00 15:00 23:00 07:00 15:00 23:00 Intake Total 823 ml 953 ml Output Total 600 ml 1500 ml 400 ml Balance 223 ml -1500 ml 553 ml Intake Oral 0 ml IV Total 0 ml Tube Feeding 423 ml 553 ml Other 400 ml 400 ml Output Urine Total 600 ml 1500 ml 400 ml # Voids 1 # Bowel Movements 1 2 Result Diagram: 07/04/16 0702 07/04/16 0702 Imaging Last Impressions Chest X-Ray 05/16/16 0000 Signed Impressions: Service Date/Time: April 17:35 - CONCLUSION: 1. Tracheostomy in satisfactory position. Mild basilar atelectasis. Durga Dotson MD Abdomen/Pelvis CT 04/12/16 0000 Signed Impressions: Service Date/Time: Tuesday, April 12, 2016 20:52 - CONCLUSION: 1. 6.4 cm necrotic mass or abscess in the soft tissues posteriorly just below the sacrum associated with some bony destructive change of the lower most sacrum and coccyx with inflammatory changes extending into the ischiorectal fossa and into the presacral retroperitoneum predominantly on the left side. There is associated fairly marked mural thickening of the anal verge and rectum. 2. There is gastrostomy and Arevalo catheter present. Stable abdominal aortic aneurysm. Durga Dotson MD Head Magnetic Resonance Angiography 03/05/16 0000 Signed Impressions: Service Date/Time: Saturday, March 05, 2016 09:26 - CONCLUSION: Persistent high-grade subtotal occlusive stenotic lesions in the distal right vertebral artery and proximal basilar artery with significant improvement in flow and recanalization following initial presentation of thrombosis. Stable interstitial circulation without significant stenosis. 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 There is decreasing restricted diffusion and increasing loss of volume characteristic of a subacute to chronic infarct. No evidence of acute infarct, acute hemorrhage mass or edema. Ernesto Kulkarni MD Head CT 01/16/16 0000 Signed Impressions: Service Date/Time: Saturday, January 16, 2016 10:51 - CONCLUSION: No extensive low density in the brainstem colin more prominent in the right the left extending into the right middle cerebellar peduncle consistent with brainstem infarct nonhemorrhagic acute Wellington West MD Abdomen X-Ray 01/14/16 0000 Signed Impressions: Service Date/Time: Thursday, January 14, 2016 10:19 - CONCLUSION: Moderate stool; otherwise, negative. 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 No evidence of carotid stenosis. Glen Zamora MD Head/Brain Mag Res Venography 12/22/15 0000 Signed Impressions: Service Date/Time: Tuesday, December 22, 2015 09:22 - CONCLUSION: Normal MRV. Jonel Jones Jr., MD Objective Remarks GENERAL: Resting comfortably. EYES: No scleral icterus. No injection or drainage. CARDIOVASCULAR: Regular rate and rhythm without murmurs RESPIRATORY: No accessory muscle use. Trach in place. upper airway noise noted. GASTROINTESTINAL: Abdomen soft, non-tender, nondistended. PEG tube in place. EXTREMITIES: TR edema of hands and legs. NEUROLOGICAL: Awake, alert. has some movement his index finger on the right upon request but not much noted on the left Procedures 01/02/16 PEG placement 01/02/16 tracheostomy Date of Insertion: Jun 06, 2016 A/P Problem List: (1) CVA (cerebral vascular accident) ICD Code: I63.9 Status: Acute (2) A-fib ICD Code: I48.91 Status: Chronic (3) DM (diabetes mellitus) ICD Code: E11.9 Status: Chronic Assessment and Plan Update in Mgmt 07/06/16: no new changes to current management. Update in Mgmt 07/07/16: no new changes to current management. Update in Mgmt 07/08/16: no new changes to current management. 60-year-old male with past medical history of paroxysmal atrial fibrillation, hypertension, stage III a non-Hodgkin's lymphoma status post a chemotherapy last year. He came to the hospital with altered mental status, facial droop. 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 Non verbal. Continue Keppra. Palliative care following. PT/OT signed off. Chronic respiratory failure: Secondary to CVA, Status post tracheostomy. Continue pulmonary toilet and neb treatments as needed. Continue bronchodilators Xopenex, trach care, Levsin prn, suctioning. On 28% Os 07/05. A-fib: Continue rate control with Cardizem and metoprolol with holding parameters. Echocardiogram completed in November shows preserved EF. Coumadin discontinued secondary to bleeding. Continue with ASA and prophylactic heparin dose. If persistently without any bleeding, could consider restarting Coumadin. CBC stable. Heart rate stable 07/05. Continue to monitor. History of Non-Hodgkin lymphoma: s/p brain biopsy on December 13, by Neurosurgery, Dr. Marin. Pathology consistent with acute infarct without evidence of lymphoma. Oncology signed off with no active oncology issues. DM (diabetes mellitus): HgbA1c 7%. Continue Levemir 35u daily. Continue sliding scale coverage. Monitor accuchecks and adjust the regimen as needed. Decubitus ulcer stage IV: Continue Rocephin indefinitely (on lactinex) per ID until OM is ruled out with bone biopsy and watch for further bleeding (off warfarin due to bleeding which appears to have resolved). Continue dressing changes twice daily per wound care recommendations. Continue pressure relief measures, mattress, Turning and positioning. Patient's family declined a diverting colostomy. Continue wound care. Wound is growing Klebsiella. Continue ceftriaxone. Per ID on 07/05, continue antibiotics for however long pt is here and then possibly could switch to PO upon discharge. GI/Nutrition: Continue Nepro at 55 cc/hr per dietitian recommendations. Free water flushes. Potassium supplement. Tolerating tube feeds 07/05. DVT px - SCDs. Discharge Planning Awaiting clinical improvement. Difficult placement per CM notes. Problem Qualifiers (1) DM (diabetes mellitus): Qualified Code: E11.9 - Type 2 diabetes mellitus without complications Rekha Foster MD Jul 08, 2016 13:11
[2016-07-08] MEDS: PARoxetine HCL SUSP 20 MG/10 ML UDC PEG SCH (17:52)
[2016-07-08] MEDS: INSULIN DETEMIR 100 UNITS/ML VIAL SQ SCH (21:00)
[2016-07-09] VITALS (9 sets, daily range): BP systolic 100–127; BP diastolic 64–83; PULSE 70–88; RESP 19–20; TEMP 96.6–97.9; O2SAT 98–100
[2016-07-09] MEDS: FREE WATER TUBE SCH ×7 (04:00→23:55)
[2016-07-09] MEDS: ACETAMINOPHEN/HYDROcodone 325 MG/5 MG TAB PEG SCH ×5 (05:03→23:55)
[2016-07-09] MEDS: ACETIC ACID 0.25% SOLN 1000 ML IRR BTL IRRIGATION SCH ×3 (05:03→20:13)
[2016-07-09] MEDS: HEPARIN SODIUM - SQ 10,000 UNITS/ML VIAL SQ SCH ×3 (05:03→20:13)
[2016-07-09] MEDS: RANITIDINE HCL SYRUP 150 MG/10 ML UDC PO SCH (09:25)
[2016-07-09] MEDS: METOPROLOL TARTRATE 50 MG TAB PO SCH ×2 (09:25→20:12)
[2016-07-09] MEDS: levETIRAcetam 500 MG/5 ML UDC TUBE SCH ×2 (09:25→20:11)
[2016-07-09] MEDS: ASPIRIN 325 MG TAB TUBE SCH (09:25)
[2016-07-09] MEDS: DILTIAZEM HCL 90 MG TAB PEG SCH ×4 (09:25→20:11)
[2016-07-09] MEDS: LACTOBACILLUS ACIDOPHILUS TAB PEG SCH ×3 (09:25→18:06)
[2016-07-09] MEDS: POTASSIUM CHLORIDE 25 MEQ EFFERVESCENT TAB TUBE SCH (09:26)
[2016-07-09] MEDS: NYSTATIN 100,000 U/GM PWD 15 GM BTL TOPICAL SCH ×2 (09:26→20:11)
[2016-07-09] MEDS: ARTIFICIAL TEARS OPTH OINT 3.5 APPLIC/3.5 GM TUBO EACH EYE SCH ×2 (09:27→20:11)
[2016-07-09] MEDS: cefTRIAXone INJ 2,000 MG in SODIUM CHLORIDE 0.9% INJ 100 ML IV SCH (12:04)
--- NOTE | 2016-07-09 13:19 | HHI.PR ---
Subjective Remarks patient tolerating tube feedings status quo Objective Vitals Vital Signs Date Time Temp Pulse Resp B/P Pulse Ox O2 Delivery O2 Flow Rate FiO2 07/09/16 12:22 97.8 79 20 100/65 100 07/09/16 08:46 97.9 88 20 127/76 98 07/09/16 08:32 100 T-piece 5.00 28 07/09/16 07:34 81 07/09/16 06:00 97.0 70 20 121/83 98 07/09/16 00:16 97.6 74 19 115/70 98 07/08/16 21:30 T-Piece 6.00 28 Humidified 07/08/16 20:30 98 T-piece 6.00 28 07/08/16 20:18 97.8 73 19 102/64 97 07/08/16 19:00 79 07/08/16 16:00 96.9 77 18 109/72 99 07/08/16 15:10 79 I/O 07/08/16 07/08/16 07/08/16 07/09/16 07/09/16 07/09/16 06:59 14:59 22:59 06:59 14:59 22:59 Intake Total 953 ml Output Total 400 ml 1200 ml Balance 553 ml -1200 ml Intake Oral 0 ml Tube Feeding 553 ml Other 400 ml Output Urine Total 400 ml 1200 ml # Voids 1 # Bowel Movements 2 4 Imaging Last Impressions Chest X-Ray 05/16/16 0000 Signed Impressions: Service Date/Time: April 17:35 - CONCLUSION: 1. Tracheostomy in satisfactory position. Mild basilar atelectasis. Durga Dotson MD Abdomen/Pelvis CT 04/12/16 0000 Signed Impressions: Service Date/Time: Tuesday, April 12, 2016 20:52 - CONCLUSION: 1. 6.4 cm necrotic mass or abscess in the soft tissues posteriorly just below the sacrum associated with some bony destructive change of the lower most sacrum and coccyx with inflammatory changes extending into the ischiorectal fossa and into the presacral retroperitoneum predominantly on the left side. There is associated fairly marked mural thickening of the anal verge and rectum. 2. There is gastrostomy and Lopez catheter present. Stable abdominal aortic aneurysm. Durga Dotson MD Head Magnetic Resonance Angiography 03/05/16 0000 Signed Impressions: Service Date/Time: Saturday, March 05, 2016 09:26 - CONCLUSION: Persistent high-grade subtotal occlusive stenotic lesions in the distal right vertebral artery and proximal basilar artery with significant improvement in flow and recanalization following initial presentation of thrombosis. Stable interstitial circulation without significant stenosis. 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 There is decreasing restricted diffusion and increasing loss of volume characteristic of a subacute to chronic infarct. No evidence of acute infarct, acute hemorrhage mass or edema. Ernesto Kulkarni MD Head CT 01/16/16 0000 Signed Impressions: Service Date/Time: Saturday, January 16, 2016 10:51 - CONCLUSION: No extensive low density in the brainstem colin more prominent in the right the left extending into the right middle cerebellar peduncle consistent with brainstem infarct nonhemorrhagic acute Wellington West MD Abdomen X-Ray 01/14/16 0000 Signed Impressions: Service Date/Time: Thursday, January 14, 2016 10:19 - CONCLUSION: Moderate stool; otherwise, negative. 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 No evidence of carotid stenosis. Glen Zamora MD Head/Brain Mag Res Venography 12/22/15 0000 Signed Impressions: Service Date/Time: Tuesday, December 22, 2015 09:22 - CONCLUSION: Normal MRV. Jonel Jones Jr., MD Objective Remarks pupils equal, anicteric mild facial asymmetry no gag reflex neck supple no rigidity, tracheostomy in place lungs- no rales or wheezes regular rhythm abdomen- soft, good bowel sounds, PEG site- no signs of erythema lopez in place, no scrotal swelling, no inguinal rash sacral wound - quarter size open wound- about 2-3 inches deep, edges clean, wound packing mildly blood tinged- extremities- both feet withdraws to stimulation Procedures 01/02/16 PEG placement 01/02/16 tracheostomy Date of Insertion: Jun 06, 2016 A/P Problem List: (1) CVA (cerebral vascular accident) ICD Code: I63.9 Status: Acute (2) A-fib ICD Code: I48.91 Status: Chronic (3) DM (diabetes mellitus) ICD Code: E11.9 Status: Chronic Assessment and Plan 60-year-old male with past medical history of paroxysmal atrial fibrillation, hypertension, stage III a non-Hodgkin's lymphoma status post a chemotherapy last year. He came to the hospital with altered mental status, facial droop. 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 Non verbal. Continue Keppra. Palliative care following. PT/OT signed off. Chronic respiratory failure: Secondary to CVA, Status post tracheostomy. Continue pulmonary toilet and neb treatments as needed. Continue bronchodilators Xopenex, trach care, Levsin prn, suctioning. On 28% Os 07/05. A-fib: Continue rate control with Cardizem and metoprolol with holding parameters. Echocardiogram completed in November shows preserved EF. Coumadin discontinued secondary to bleeding. Continue with ASA and prophylactic heparin dose. If persistently without any bleeding, could consider restarting Coumadin. CBC stable. Heart rate stable 07/05. Continue to monitor. History of Non-Hodgkin lymphoma: s/p brain biopsy on December 13, by Neurosurgery, Dr. Marin. Pathology consistent with acute infarct without evidence of lymphoma. Oncology signed off with no active oncology issues. DM (diabetes mellitus): HgbA1c 7%. Continue Levemir 35u daily. Continue sliding scale coverage. Monitor accuchecks and adjust the regimen as needed. Decubitus ulcer stage IV: Continue Rocephin indefinitely (on lactinex) per ID until OM is ruled out with bone biopsy and watch for further bleeding (off warfarin due to bleeding which appears to have resolved). Continue dressing changes twice daily per wound care recommendations. Continue pressure relief measures, mattress, Turning and positioning. Patient's family declined a diverting colostomy. Continue wound care. Wound is growing Klebsiella. Continue ceftriaxone. Per ID on 07/05, continue antibiotics for however long pt is here and then possibly could switch to PO upon discharge. GI/Nutrition: Continue Nepro at 55 cc/hr per dietitian recommendations. Free water flushes. Potassium supplement. Tolerating tube feeds 07/05. DVT px - SCDs. Discharge Planning Difficult placement per CM notes Problem Qualifiers (1) DM (diabetes mellitus): Qualified Code: E11.9 - Type 2 diabetes mellitus without complications Soco Pickett MD Jul 09, 2016 13:19 Soco Pickett MD Jul 09, 2016 13:19
[2016-07-09] MEDS: PARoxetine HCL SUSP 20 MG/10 ML UDC PEG SCH (18:06)
[2016-07-09] MEDS: INSULIN DETEMIR 100 UNITS/ML VIAL SQ SCH (20:11)
[2016-07-10] VITALS (9 sets, daily range): BP systolic 109–133; BP diastolic 64–80; PULSE 74–92; RESP 17–21; TEMP 96.3–98.3; O2SAT 97–99
[2016-07-10] MEDS: FREE WATER TUBE SCH ×5 (04:00→20:00)
[2016-07-10] MEDS: ACETIC ACID 0.25% SOLN 1000 ML IRR BTL IRRIGATION SCH ×3 (05:48→22:11)
[2016-07-10] MEDS: ACETAMINOPHEN/HYDROcodone 325 MG/5 MG TAB PEG SCH ×3 (05:48→17:42)
[2016-07-10] MEDS: HEPARIN SODIUM - SQ 10,000 UNITS/ML VIAL SQ SCH ×3 (05:48→22:09)
[2016-07-10] MEDS: POTASSIUM CHLORIDE 25 MEQ EFFERVESCENT TAB TUBE SCH (09:12)
[2016-07-10] MEDS: DILTIAZEM HCL 90 MG TAB PEG SCH ×4 (09:12→22:08)
[2016-07-10] MEDS: RANITIDINE HCL SYRUP 150 MG/10 ML UDC PO SCH (09:12)
[2016-07-10] MEDS: ASPIRIN 325 MG TAB TUBE SCH (09:12)
[2016-07-10] MEDS: levETIRAcetam 500 MG/5 ML UDC TUBE SCH ×2 (09:12→22:08)
[2016-07-10] MEDS: LACTOBACILLUS ACIDOPHILUS TAB PEG SCH ×3 (09:12→17:42)
[2016-07-10] MEDS: METOPROLOL TARTRATE 50 MG TAB PO SCH ×2 (09:18→22:08)
[2016-07-10] MEDS: NYSTATIN 100,000 U/GM PWD 15 GM BTL TOPICAL SCH ×2 (09:18→22:10)
[2016-07-10] MEDS: ARTIFICIAL TEARS OPTH OINT 3.5 APPLIC/3.5 GM TUBO EACH EYE SCH ×2 (09:19→21:00)
[2016-07-10] MEDS: cefTRIAXone INJ 2,000 MG in SODIUM CHLORIDE 0.9% INJ 100 ML IV SCH ×2 (12:10→16:05)
--- NOTE | 2016-07-10 12:10 | HHI.PR ---
Subjective Remarks seen with and Mom at bedside no acute events tolerating tube feedings eyes move around- occasionally tracks Objective Vitals Vital Signs Date Time Temp Pulse Resp B/P Pulse Ox O2 Delivery O2 Flow Rate FiO2 07/10/16 08:19 96.3 88 21 117/76 98 07/10/16 07:08 92 07/10/16 00:14 98.3 79 20 129/75 97 07/09/16 20:15 T-Piece 5.00 28 Humidified 07/09/16 20:09 96.9 76 20 100/64 99 07/09/16 19:00 76 07/09/16 17:03 96.6 80 20 112/73 100 07/09/16 12:22 97.8 79 20 100/65 100 I/O 07/09/16 07/09/16 07/09/16 07/10/16 07/10/16 07/10/16 06:59 14:59 22:59 06:59 14:59 22:59 Intake Total 400 ml 200 ml 838 ml Output Total 700 ml 650 ml 250 ml Balance -300 ml -450 ml -250 ml 838 ml Tube Feeding 638 ml Other 400 ml 200 ml 200 ml Output Urine Total 700 ml 650 ml 250 ml # Voids 1 # Bowel Movements 1 2 3 Imaging Last Impressions Chest X-Ray 05/16/16 0000 Signed Impressions: Service Date/Time: April 17:35 - CONCLUSION: 1. Tracheostomy in satisfactory position. Mild basilar atelectasis. Durga Dotson MD Abdomen/Pelvis CT 04/12/16 0000 Signed Impressions: Service Date/Time: Tuesday, April 12, 2016 20:52 - CONCLUSION: 1. 6.4 cm necrotic mass or abscess in the soft tissues posteriorly just below the sacrum associated with some bony destructive change of the lower most sacrum and coccyx with inflammatory changes extending into the ischiorectal fossa and into the presacral retroperitoneum predominantly on the left side. There is associated fairly marked mural thickening of the anal verge and rectum. 2. There is gastrostomy and Lopez catheter present. Stable abdominal aortic aneurysm. Durga Dotson MD Head Magnetic Resonance Angiography 03/05/16 0000 Signed Impressions: Service Date/Time: Saturday, March 05, 2016 09:26 - CONCLUSION: Persistent high-grade subtotal occlusive stenotic lesions in the distal right vertebral artery and proximal basilar artery with significant improvement in flow and recanalization following initial presentation of thrombosis. Stable interstitial circulation without significant stenosis. 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 There is decreasing restricted diffusion and increasing loss of volume characteristic of a subacute to chronic infarct. No evidence of acute infarct, acute hemorrhage mass or edema. Ernesto Kulkarni MD Head CT 01/16/16 0000 Signed Impressions: Service Date/Time: Saturday, January 16, 2016 10:51 - CONCLUSION: No extensive low density in the brainstem colin more prominent in the right the left extending into the right middle cerebellar peduncle consistent with brainstem infarct nonhemorrhagic acute Wellington West MD Abdomen X-Ray 01/14/16 0000 Signed Impressions: Service Date/Time: Thursday, January 14, 2016 10:19 - CONCLUSION: Moderate stool; otherwise, negative. 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 No evidence of carotid stenosis. Glen Zamora MD Head/Brain Mag Res Venography 12/22/15 0000 Signed Impressions: Service Date/Time: Tuesday, December 22, 2015 09:22 - CONCLUSION: Normal MRV. Jonel Jones Jr., MD Objective Remarks pupils equal, anicteric mild facial asymmetry no gag reflex neck supple no rigidity, tracheostomy in place lungs- no rales or wheezes regular rhythm abdomen- soft, good bowel sounds, PEG site- no signs of erythema lopez in place, no scrotal swelling, no inguinal rash sacral wound - quarter size open wound- about 2-3 inches deep, edges clean, wound packing mildly blood tinged- 07/08 exam extremities- both feet withdraws to stimulation, dry soles Procedures 01/02/16 PEG placement 01/02/16 tracheostomy Urinary Catheter: Yes Lopez insert reason: Prolonged Immobilization Date of Insertion: Jun 06, 2016 A/P Problem List: (1) CVA (cerebral vascular accident) ICD Code: I63.9 Status: Acute (2) A-fib ICD Code: I48.91 Status: Chronic (3) DM (diabetes mellitus) ICD Code: E11.9 Status: Chronic Assessment and Plan 60-year-old male with past medical history of paroxysmal atrial fibrillation, hypertension, stage III a non-Hodgkin's lymphoma status post a chemotherapy last year. He came to the hospital with altered mental status, facial droop. 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 Non verbal. Continue Keppra. Palliative care following. PT/OT signed off. Chronic respiratory failure: Secondary to CVA, Status post tracheostomy. Continue pulmonary toilet and neb treatments as needed. Continue bronchodilators Xopenex, trach care, Levsin prn, suctioning. On 28% FiO2 07/05. A-fib: Continue rate control with Cardizem and metoprolol with holding parameters. Echocardiogram completed in November shows preserved EF. Coumadin discontinued secondary to bleeding. Continue with ASA and prophylactic heparin dose. If persistently without any bleeding, could consider restarting Coumadin. CBC stable. Heart rate stable 07/05. Continue to monitor. History of Non-Hodgkin lymphoma: s/p brain biopsy on December 13, by Neurosurgery, Dr. Marin. Pathology consistent with acute infarct without evidence of lymphoma. Oncology signed off with no active oncology issues. DM (diabetes mellitus): HgbA1c 7%. Continue Levemir 35u daily. Continue sliding scale coverage. Monitor accuchecks and adjust the regimen as needed. Decubitus ulcer stage IV: Continue Rocephin indefinitely (on lactinex) per ID until OM is ruled out with bone biopsy and watch for further bleeding (off warfarin due to bleeding which appears to have resolved). Continue dressing changes twice daily per wound care recommendations. Continue pressure relief measures, mattress, Turning and positioning. Patient's family declined a diverting colostomy. Continue wound care. Wound is growing Klebsiella. Continue ceftriaxone. Per ID on 07/05, continue antibiotics for however long pt is here and then possibly could switch to PO upon discharge. GI/Nutrition: Continue Nepro at 55 cc/hr per dietitian recommendations. Free water flushes. Potassium supplement. Tolerating tube feeds 07/05. DVT px - SCDs. Discharge Planning Difficult placement per CM notes. Problem Qualifiers (1) DM (diabetes mellitus): Qualified Code: E11.9 - Type 2 diabetes mellitus without complications Soco Pickett MD Jul 10, 2016 12:10 Soco Pickett MD Jul 10, 2016 12:10
[2016-07-10] MEDS: PARoxetine HCL SUSP 20 MG/10 ML UDC PEG SCH (18:52)
[2016-07-10] MEDS: INSULIN DETEMIR 100 UNITS/ML VIAL SQ SCH (22:09)
[2016-07-11] VITALS (9 sets, daily range): BP systolic 117–138; BP diastolic 59–81; PULSE 68–84; RESP 18–22; TEMP 96.5–97.9; O2SAT 90–100
[2016-07-11] MEDS: ACETAMINOPHEN/HYDROcodone 325 MG/5 MG TAB PEG SCH ×3 (00:12→12:55)
[2016-07-11] MEDS: FREE WATER TUBE SCH ×7 (00:13→20:33)
[2016-07-11] MEDS: ACETIC ACID 0.25% SOLN 1000 ML IRR BTL IRRIGATION SCH ×3 (06:00→20:32)
[2016-07-11] MEDS: HEPARIN SODIUM - SQ 10,000 UNITS/ML VIAL SQ SCH ×3 (06:17→20:31)
[2016-07-11] MEDS: LACTOBACILLUS ACIDOPHILUS TAB PEG SCH ×3 (08:23→18:30)
[2016-07-11] MEDS: levETIRAcetam 500 MG/5 ML UDC TUBE SCH ×2 (08:23→20:31)
[2016-07-11] MEDS: RANITIDINE HCL SYRUP 150 MG/10 ML UDC PO SCH (08:23)
[2016-07-11] MEDS: ASPIRIN 325 MG TAB TUBE SCH (08:24)
[2016-07-11] MEDS: ARTIFICIAL TEARS OPTH OINT 3.5 APPLIC/3.5 GM TUBO EACH EYE SCH ×2 (08:24→20:33)
[2016-07-11] MEDS: METOPROLOL TARTRATE 50 MG TAB PO SCH ×2 (08:24→20:31)
[2016-07-11] MEDS: DILTIAZEM HCL 90 MG TAB PEG SCH ×3 (08:24→20:36)
[2016-07-11] MEDS: POTASSIUM CHLORIDE 25 MEQ EFFERVESCENT TAB TUBE SCH (08:24)
[2016-07-11] MEDS: NYSTATIN 100,000 U/GM PWD 15 GM BTL TOPICAL SCH ×2 (09:00→20:32)
[2016-07-11] MEDS: cefTRIAXone INJ 2,000 MG in SODIUM CHLORIDE 0.9% INJ 100 ML IV SCH (12:55)
--- NOTE | 2016-07-11 14:51 | HHI.PR ---
Subjective Remarks family at bedside tolerating tube feedings family has no questions Objective Vitals Vital Signs Date Time Temp Pulse Resp B/P Pulse Ox O2 Delivery O2 Flow Rate FiO2 07/11/16 12:01 96.5 71 20 118/75 97 07/11/16 09:21 96 T-piece 5.00 28 07/11/16 09:21 96 T-piece 5.00 28 07/11/16 08:30 97 T-Piece 6.00 28 07/11/16 08:10 97.9 84 22 138/81 97 07/11/16 05:30 97.2 74 19 119/68 100 07/11/16 01:33 18 07/11/16 00:30 97.1 68 18 130/68 99 07/10/16 22:05 T-Piece 6.00 28 Humidified 07/10/16 22:05 74 07/10/16 21:30 98.0 74 17 133/77 99 07/10/16 20:00 97 T-piece 6.00 28 07/10/16 20:00 97 T-piece 6.00 28 07/10/16 16:00 97.8 78 20 109/80 98 I/O 07/10/16 07/10/16 07/10/16 07/11/16 07/11/16 07/11/16 07:00 15:00 23:00 07:00 15:00 23:00 Intake Total 838 ml 163 ml 411 ml Output Total 250 ml 400 ml 800 ml 600 ml Balance -250 ml 438 ml -637 ml -189 ml Intake Oral 0 ml 0 ml IV Total 0 ml 0 ml Tube Feeding 638 ml 163 ml 411 ml Other 200 ml Output Urine Total 250 ml 400 ml 800 ml 600 ml # Bowel Movements 3 2 1 2 Imaging Last Impressions Chest X-Ray 05/16/16 0000 Signed Impressions: Service Date/Time: April 17:35 - CONCLUSION: 1. Tracheostomy in satisfactory position. Mild basilar atelectasis. Durga Dotson MD Abdomen/Pelvis CT 04/12/16 0000 Signed Impressions: Service Date/Time: Tuesday, April 12, 2016 20:52 - CONCLUSION: 1. 6.4 cm necrotic mass or abscess in the soft tissues posteriorly just below the sacrum associated with some bony destructive change of the lower most sacrum and coccyx with inflammatory changes extending into the ischiorectal fossa and into the presacral retroperitoneum predominantly on the left side. There is associated fairly marked mural thickening of the anal verge and rectum. 2. There is gastrostomy and Lopez catheter present. Stable abdominal aortic aneurysm. Durga Dotson MD Head Magnetic Resonance Angiography 03/05/16 0000 Signed Impressions: Service Date/Time: Saturday, March 05, 2016 09:26 - CONCLUSION: Persistent high-grade subtotal occlusive stenotic lesions in the distal right vertebral artery and proximal basilar artery with significant improvement in flow and recanalization following initial presentation of thrombosis. Stable interstitial circulation without significant stenosis. 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 There is decreasing restricted diffusion and increasing loss of volume characteristic of a subacute to chronic infarct. No evidence of acute infarct, acute hemorrhage mass or edema. Ernesto Kulkarni MD Head CT 01/16/16 0000 Signed Impressions: Service Date/Time: Saturday, January 16, 2016 10:51 - CONCLUSION: No extensive low density in the brainstem colin more prominent in the right the left extending into the right middle cerebellar peduncle consistent with brainstem infarct nonhemorrhagic acute Wellington West MD Abdomen X-Ray 01/14/16 0000 Signed Impressions: Service Date/Time: Thursday, January 14, 2016 10:19 - CONCLUSION: Moderate stool; otherwise, negative. 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 No evidence of carotid stenosis. Glen Zamora MD Head/Brain Mag Res Venography 12/22/15 0000 Signed Impressions: Service Date/Time: Tuesday, December 22, 2015 09:22 - CONCLUSION: Normal MRV. Jonel Jones Jr., MD Objective Remarks pupils equal, anicteric mild facial asymmetry no gag reflex neck supple no rigidity, tracheostomy in place lungs- no rales or wheezes regular rhythm abdomen- soft, good bowel sounds, PEG site- no signs of erythema lopez in place, no scrotal swelling, no inguinal rash sacral wound - quarter size open wound- about 2-3 inches deep, edges clean, wound packing mildly blood tinged- 07/08 exam extremities- both feet withdraws to stimulation, dry soles Procedures 01/02/16 PEG placement 01/02/16 tracheostomy Urinary Catheter: Yes Lopez insert reason: Prolonged Immobilization Date of Insertion: Jun 06, 2016 A/P Problem List: (1) CVA (cerebral vascular accident) ICD Code: I63.9 Status: Acute (2) A-fib ICD Code: I48.91 Status: Chronic (3) DM (diabetes mellitus) ICD Code: E11.9 Status: Chronic Assessment and Plan 60-year-old male with past medical history of paroxysmal atrial fibrillation, hypertension, stage III a non-Hodgkin's lymphoma status post a chemotherapy last year. He came to the hospital with altered mental status, facial droop. 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 Non verbal. Continue Keppra. Palliative care following. PT/OT signed off. Chronic respiratory failure: Secondary to CVA, Status post tracheostomy. Continue pulmonary toilet and neb treatments as needed. Continue bronchodilators Xopenex, trach care, Levsin prn, suctioning. On 28% Os 07/05. A-fib: Continue rate control with Cardizem and metoprolol with holding parameters. Echocardiogram completed in November shows preserved EF. Coumadin discontinued secondary to bleeding. Continue with ASA and prophylactic heparin dose. If persistently without any bleeding, could consider restarting Coumadin. CBC stable. Heart rate stable 07/05. Continue to monitor. History of Non-Hodgkin lymphoma: s/p brain biopsy on December 13, by Neurosurgery, Dr. Marin. Pathology consistent with acute infarct without evidence of lymphoma. Oncology signed off with no active oncology issues. DM (diabetes mellitus): HgbA1c 7%. Continue Levemir 35u daily. Continue sliding scale coverage. Monitor accuchecks and adjust the regimen as needed. Decubitus ulcer stage IV: Continue Rocephin indefinitely (on lactinex) per ID until OM is ruled out with bone biopsy and watch for further bleeding (off warfarin due to bleeding which appears to have resolved). Continue dressing changes twice daily per wound care recommendations. Continue pressure relief measures, mattress, Turning and positioning. Patient's family declined a diverting colostomy. Continue wound care. Wound is growing Klebsiella. Continue ceftriaxone. Per ID on 07/05, continue antibiotics for however long pt is here and then possibly could switch to PO upon discharge. GI/Nutrition: Continue Nepro at 55 cc/hr per dietitian recommendations. Free water flushes. Potassium supplement. Tolerating tube feeds 07/05. DVT px - SCDs. Discharge Planning Difficult placement per CM notes. Problem Qualifiers (1) DM (diabetes mellitus): Qualified Code: E11.9 - Type 2 diabetes mellitus without complications Soco Pickett MD Jul 11, 2016 14:51
[2016-07-11] MEDS: PARoxetine HCL SUSP 20 MG/10 ML UDC PEG SCH (20:31)
[2016-07-11] MEDS: INSULIN DETEMIR 100 UNITS/ML VIAL SQ SCH (20:32)
[2016-07-12] VITALS (9 sets, daily range): BP systolic 111–127; BP diastolic 64–71; PULSE 62–86; RESP 18–20; TEMP 95.6–98.3; O2SAT 96–98
[2016-07-12] MEDS: ACETAMINOPHEN/HYDROcodone 325 MG/5 MG TAB PEG SCH ×4 (00:03→17:07)
[2016-07-12] MEDS: FREE WATER TUBE SCH ×5 (04:00→20:00)
[2016-07-12] MEDS: HEPARIN SODIUM - SQ 10,000 UNITS/ML VIAL SQ SCH ×3 (05:03→22:02)
[2016-07-12] MEDS: ACETIC ACID 0.25% SOLN 1000 ML IRR BTL IRRIGATION SCH ×3 (05:03→22:05)
[2016-07-12] MEDS: DILTIAZEM HCL 90 MG TAB PEG SCH ×4 (08:11→22:04)
[2016-07-12] MEDS: RANITIDINE HCL SYRUP 150 MG/10 ML UDC PO SCH (08:11)
[2016-07-12] MEDS: levETIRAcetam 500 MG/5 ML UDC TUBE SCH ×2 (08:11→22:02)
[2016-07-12] MEDS: ARTIFICIAL TEARS OPTH OINT 3.5 APPLIC/3.5 GM TUBO EACH EYE SCH ×2 (08:11→22:00)
[2016-07-12] MEDS: ASPIRIN 325 MG TAB TUBE SCH (08:11)
[2016-07-12] MEDS: NYSTATIN 100,000 U/GM PWD 15 GM BTL TOPICAL SCH ×2 (08:11→22:04)
[2016-07-12] MEDS: METOPROLOL TARTRATE 50 MG TAB PO SCH ×2 (08:11→21:00)
[2016-07-12] MEDS: LACTOBACILLUS ACIDOPHILUS TAB PEG SCH ×3 (08:11→17:07)
[2016-07-12] MEDS: POTASSIUM CHLORIDE 25 MEQ EFFERVESCENT TAB TUBE SCH (08:11)
[2016-07-12] MEDS: cefTRIAXone INJ 2,000 MG in SODIUM CHLORIDE 0.9% INJ 100 ML IV SCH (12:22)
--- NOTE | 2016-07-12 13:12 | HHI.PR ---
Subjective Remarks in bed , closed eyes , grimacing to tactile stimuli , mother at bed site no acute issues Objective Vitals Vital Signs Date Time Temp Pulse Resp B/P Pulse Ox O2 Delivery O2 Flow Rate FiO2 07/12/16 12:00 95.6 86 18 113/67 97 07/12/16 08:30 97 T-Piece 6.00 28 Humidified 07/12/16 08:07 96 T-piece 28 07/12/16 08:02 98.1 81 19 117/67 97 07/12/16 06:03 20 07/12/16 05:30 98.3 75 19 125/68 98 07/12/16 00:00 T-Piece 6.00 28 07/12/16 00:00 98.0 62 18 120/67 98 07/11/16 21:00 97.2 75 19 117/65 99 07/11/16 20:00 T-Piece 6.00 28 07/11/16 19:54 78 07/11/16 17:31 97.0 72 18 118/59 97 I/O 07/11/16 07/11/16 07/11/16 07/12/16 07/12/16 07/12/16 07:00 15:00 23:00 07:00 15:00 23:00 Intake Total 411 ml 0 ml 0 ml Output Total 600 ml 1350 ml 600 ml Balance -189 ml -1350 ml -600 ml Intake Oral 0 ml 0 ml 0 ml IV Total 0 ml Tube Feeding 411 ml Output Urine Total 600 ml 1350 ml 600 ml # Bowel Movements 2 0 0 Objective Remarks GENERAL:closed eyes , in bed.on T tube SKIN: Warm and dry. HEAD: Normocephalic. EYES: No scleral icterus. No injection or drainage. NECK: Supple, trachea midline. No JVD . CARDIOVASCULAR: Regular rate and rhythm without murmurs, gallops, or rubs. RESPIRATORY: Breath sounds equal bilaterally. No accessory muscle use. GASTROINTESTINAL: Abdomen soft, non-tender, nondistended. PEG tube in place. No surrounding erythema. MUSCULOSKELETAL: No cyanosis, or edema. Procedures 01/02/16 PEG placement 01/02/16 tracheostomy Date of Insertion: Jun 06, 2016 A/P Problem List: (1) CVA (cerebral vascular accident) ICD Code: I63.9 Status: Acute (2) A-fib ICD Code: I48.91 Status: Chronic (3) DM (diabetes mellitus) ICD Code: E11.9 Status: Chronic Assessment and Plan 60-year-old male with past medical history of paroxysmal atrial fibrillation, hypertension, stage III a non-Hodgkin's lymphoma status post a chemotherapy last year. He came to the hospital with altered mental status, facial droop. 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 Non verbal. Continue Keppra. Palliative care following. PT/OT signed off. Chronic respiratory failure: Secondary to CVA, Status post tracheostomy. Continue pulmonary toilet and neb treatments as needed. Continue bronchodilators Xopenex, trach care, Levsin prn, suctioning. On 28% Os 07/05. A-fib: Continue rate control with Cardizem and metoprolol with holding parameters. Echocardiogram completed in November shows preserved EF. Coumadin discontinued secondary to bleeding. Continue with ASA and prophylactic heparin dose. If persistently without any bleeding, could consider restarting Coumadin. CBC stable. Heart rate stable 07/05. Continue to monitor. History of Non-Hodgkin lymphoma: s/p brain biopsy on December 13, by Neurosurgery, Dr. Marin. Pathology consistent with acute infarct without evidence of lymphoma. Oncology signed off with no active oncology issues. DM (diabetes mellitus): HgbA1c 7%. Continue Levemir 35u daily. Continue sliding scale coverage. Monitor accuchecks and adjust the regimen as needed. Decubitus ulcer stage IV: Continue Rocephin indefinitely (on lactinex) per ID until OM is ruled out with bone biopsy and watch for further bleeding (off warfarin due to bleeding which appears to have resolved). Continue dressing changes twice daily per wound care recommendations. Continue pressure relief measures, mattress, Turning and positioning. Patient's family declined a diverting colostomy. Continue wound care. Wound is growing Klebsiella. Continue ceftriaxone. Per ID on 07/05, continue antibiotics for however long pt is here and then possibly could switch to PO upon discharge. GI/Nutrition: Continue Nepro at 55 cc/hr per dietitian recommendations. Free water flushes. Potassium supplement. Tolerating tube feeds 07/05. DVT px - SCDs. Problem Qualifiers (1) DM (diabetes mellitus): Qualified Code: E11.9 - Type 2 diabetes mellitus without complications Terrence Gonzalez MD Jul 12, 2016 13:12
[2016-07-12] MEDS: PARoxetine HCL SUSP 20 MG/10 ML UDC PEG SCH (18:16)
[2016-07-12] MEDS: INSULIN DETEMIR 100 UNITS/ML VIAL SQ SCH (22:02)
[2016-07-13] VITALS (10 sets, daily range): BP systolic 100–127; BP diastolic 65–71; PULSE 71–89; RESP 20–22; TEMP 97.2–98.8; O2SAT 95–100
[2016-07-13] MEDS: ACETAMINOPHEN/HYDROcodone 325 MG/5 MG TAB PEG SCH ×4 (00:19→18:33)
[2016-07-13] MEDS: FREE WATER TUBE SCH ×6 (04:00→20:00)
[2016-07-13] MEDS: HEPARIN SODIUM - SQ 10,000 UNITS/ML VIAL SQ SCH ×3 (05:48→21:15)
[2016-07-13] MEDS: ACETIC ACID 0.25% SOLN 1000 ML IRR BTL IRRIGATION SCH ×3 (05:49→22:00)
[2016-07-13] MEDS: levETIRAcetam 500 MG/5 ML UDC TUBE SCH ×2 (07:45→21:14)
[2016-07-13] MEDS: POTASSIUM CHLORIDE 25 MEQ EFFERVESCENT TAB TUBE SCH (07:45)
[2016-07-13] MEDS: LACTOBACILLUS ACIDOPHILUS TAB PEG SCH ×3 (07:46→18:32)
[2016-07-13] MEDS: ASPIRIN 325 MG TAB TUBE SCH (07:46)
[2016-07-13] MEDS: RANITIDINE HCL SYRUP 150 MG/10 ML UDC PO SCH (07:46)
[2016-07-13] MEDS: METOPROLOL TARTRATE 50 MG TAB PO SCH ×2 (07:46→21:14)
[2016-07-13] MEDS: DILTIAZEM HCL 90 MG TAB PEG SCH ×4 (07:47→21:14)
[2016-07-13] MEDS: NYSTATIN 100,000 U/GM PWD 15 GM BTL TOPICAL SCH ×2 (07:48→21:00)
[2016-07-13] MEDS: ARTIFICIAL TEARS OPTH OINT 3.5 APPLIC/3.5 GM TUBO EACH EYE SCH ×2 (07:48→21:00)
[2016-07-13] MEDS: cefTRIAXone INJ 2,000 MG in SODIUM CHLORIDE 0.9% INJ 100 ML IV SCH (12:09)
--- NOTE | 2016-07-13 15:01 | HHI.PR ---
Subjective Remarks no acute issues in bed afebrile Objective Vitals Vital Signs Date Time Temp Pulse Resp B/P Pulse Ox O2 Delivery O2 Flow Rate FiO2 07/13/16 12:00 97.8 74 22 109/68 99 07/13/16 09:35 83 07/13/16 08:45 98 T-piece 8.00 28 07/13/16 08:45 98 T-piece 8.00 28 07/13/16 08:21 T-Piece 6.00 28 Humidified 07/13/16 07:11 98.8 89 20 117/71 97 07/13/16 04:00 97.5 77 20 119/70 96 07/13/16 00:00 97.7 78 20 127/65 95 07/12/16 21:23 98 T-piece 28 07/12/16 20:00 T-Piece 6.00 28 Humidified 07/12/16 20:00 97.2 66 20 127/71 97 07/12/16 20:00 62 07/12/16 16:00 95.8 68 19 111/64 97 I/O 07/12/16 07/12/16 07/12/16 07/13/16 07/13/16 07/13/16 07:00 15:00 23:00 07:00 15:00 23:00 Intake Total 0 ml 1105 ml Output Total 600 ml 800 ml 200 ml 800 ml Balance -600 ml -800 ml -200 ml 305 ml Intake Oral 0 ml Tube Feeding 605 ml Other 500 ml Output Urine Total 600 ml 800 ml 200 ml 800 ml # Bowel Movements 0 1 0 Objective Remarks GENERAL:closed eyes , in bed.on T tube SKIN: Warm and dry. HEAD: Normocephalic. EYES: No scleral icterus. No injection or drainage. NECK: Supple, trachea midline. No JVD . CARDIOVASCULAR: Regular rate and rhythm without murmurs, gallops, or rubs. RESPIRATORY: Breath sounds equal bilaterally. No accessory muscle use. GASTROINTESTINAL: Abdomen soft, non-tender, nondistended. PEG tube in place. No surrounding erythema. MUSCULOSKELETAL: No cyanosis, or edema. Procedures 01/02/16 PEG placement 01/02/16 tracheostomy Date of Insertion: Jun 06, 2016 A/P Problem List: (1) CVA (cerebral vascular accident) ICD Code: I63.9 Status: Acute (2) A-fib ICD Code: I48.91 Status: Chronic (3) DM (diabetes mellitus) ICD Code: E11.9 Status: Chronic Assessment and Plan 07/13: no acute issues , continue current care A/P: 60-year-old male with past medical history of paroxysmal atrial fibrillation, hypertension, stage III a non-Hodgkin's lymphoma status post a chemotherapy last year. He came to the hospital with altered mental status, facial droop. 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 Non verbal. Continue Keppra. Palliative care following. PT/OT signed off. Chronic respiratory failure: Secondary to CVA, Status post tracheostomy. Continue pulmonary toilet and neb treatments as needed. Continue bronchodilators Xopenex, trach care, Levsin prn, suctioning. On 28% Os 07/05. A-fib: Continue rate control with Cardizem and metoprolol with holding parameters. Echocardiogram completed in November shows preserved EF. Coumadin discontinued secondary to bleeding. Continue with ASA and prophylactic heparin dose. If persistently without any bleeding, could consider restarting Coumadin. CBC stable. Heart rate stable 07/05. Continue to monitor. History of Non-Hodgkin lymphoma: s/p brain biopsy on December 13, by Neurosurgery, Dr. Marin. Pathology consistent with acute infarct without evidence of lymphoma. Oncology signed off with no active oncology issues. DM (diabetes mellitus): HgbA1c 7%. Continue Levemir 35u daily. Continue sliding scale coverage. Monitor accuchecks and adjust the regimen as needed. Decubitus ulcer stage IV: Continue Rocephin indefinitely (on lactinex) per ID until OM is ruled out with bone biopsy and watch for further bleeding (off warfarin due to bleeding which appears to have resolved). Continue dressing changes twice daily per wound care recommendations. Continue pressure relief measures, mattress, Turning and positioning. Patient's family declined a diverting colostomy. Continue wound care. Wound is growing Klebsiella. Continue ceftriaxone. Per ID on 07/05, continue antibiotics for however long pt is here and then possibly could switch to PO upon discharge. GI/Nutrition: Continue Nepro at 55 cc/hr per dietitian recommendations. Free water flushes. Potassium supplement. Tolerating tube feeds 07/05. DVT px - SCDs. Problem Qualifiers (1) DM (diabetes mellitus): Qualified Code: E11.9 - Type 2 diabetes mellitus without complications Terrence Gonzalez MD Jul 13, 2016 15:01
[2016-07-13] MEDS: PARoxetine HCL SUSP 20 MG/10 ML UDC PEG SCH (18:32)
[2016-07-13] MEDS: INSULIN DETEMIR 100 UNITS/ML VIAL SQ SCH (21:00)
[2016-07-14] VITALS (10 sets, daily range): BP systolic 113–142; BP diastolic 64–93; PULSE 69–84; RESP 16–22; TEMP 95.8–98.7; O2SAT 78–100
[2016-07-14] MEDS: FREE WATER TUBE SCH ×6 (04:00→22:05)
[2016-07-14] MEDS: ACETAMINOPHEN/HYDROcodone 325 MG/5 MG TAB PEG SCH ×4 (06:00→17:27)
[2016-07-14] MEDS: ACETIC ACID 0.25% SOLN 1000 ML IRR BTL IRRIGATION SCH ×3 (06:00→22:00)
[2016-07-14] MEDS: HEPARIN SODIUM - SQ 10,000 UNITS/ML VIAL SQ SCH ×3 (06:41→22:06)
[2016-07-14] MEDS: RANITIDINE HCL SYRUP 150 MG/10 ML UDC PO SCH (08:07)
[2016-07-14] MEDS: POTASSIUM CHLORIDE 25 MEQ EFFERVESCENT TAB TUBE SCH (08:07)
[2016-07-14] MEDS: levETIRAcetam 500 MG/5 ML UDC TUBE SCH ×2 (08:07→22:04)
[2016-07-14] MEDS: METOPROLOL TARTRATE 50 MG TAB PO SCH ×2 (08:08→22:04)
[2016-07-14] MEDS: ASPIRIN 325 MG TAB TUBE SCH (08:08)
[2016-07-14] MEDS: NYSTATIN 100,000 U/GM PWD 15 GM BTL TOPICAL SCH ×2 (08:08→22:05)
[2016-07-14] MEDS: LACTOBACILLUS ACIDOPHILUS TAB PEG SCH ×3 (08:08→17:28)
[2016-07-14] MEDS: DILTIAZEM HCL 90 MG TAB PEG SCH ×5 (08:08→22:04)
[2016-07-14] MEDS: ARTIFICIAL TEARS OPTH OINT 3.5 APPLIC/3.5 GM TUBO EACH EYE SCH ×2 (08:09→22:05)
[2016-07-14] MEDS: HYOSCYAMINE 0.125 MG TAB G-TUBE PRN (08:50)
[2016-07-14] MEDS: cefTRIAXone INJ 2,000 MG in SODIUM CHLORIDE 0.9% INJ 100 ML IV SCH (11:58)
--- NOTE | 2016-07-14 14:12 | HHI.PR ---
Subjective Remarks Laying in bed, family at the bedside, no acute issue Objective Vitals Vital Signs Date Time Temp Pulse Resp B/P Pulse Ox O2 Delivery O2 Flow Rate FiO2 07/14/16 11:00 98.0 76 22 114/93 98 07/14/16 09:30 96 T-piece 28 07/14/16 09:30 96 T-piece 28 07/14/16 08:03 82 142/83 07/14/16 08:00 98.7 80 22 142/83 96 07/14/16 07:57 T-Piece 6.00 28 Humidified 07/14/16 04:30 T-Piece 28 Humidified 07/14/16 04:00 97.6 70 16 130/70 78 07/14/16 00:38 69 07/14/16 00:00 97.8 77 16 126/77 100 07/13/16 21:18 97 T-piece 4.00 28 07/13/16 21:17 97 T-piece 4.00 28 07/13/16 21:11 97.2 80 20 121/69 97 07/13/16 16:00 98.2 71 20 100/69 100 I/O 07/13/16 07/13/16 07/13/16 07/14/16 07/14/16 07/14/16 07:00 15:00 23:00 07:00 15:00 23:00 Intake Total 1105 ml 910 ml 253 ml Output Total 800 ml 1400 ml Balance 305 ml -1400 ml 910 ml 253 ml Tube Feeding 605 ml 510 ml 253 ml Other 500 ml 400 ml Output Urine Total 800 ml 1400 ml # Bowel Movements 1 Objective Remarks GENERAL:closed eyes , in bed.on T tube SKIN: Warm and dry. HEAD: Normocephalic. EYES: No scleral icterus. No injection or drainage. NECK: Supple, trachea midline. No JVD . CARDIOVASCULAR: Regular rate and rhythm without murmurs, gallops, or rubs. RESPIRATORY: Breath sounds equal bilaterally. No accessory muscle use. GASTROINTESTINAL: Abdomen soft, non-tender, nondistended. PEG tube in place. No surrounding erythema. MUSCULOSKELETAL: No cyanosis, or edema. Procedures 01/02/16 PEG placement 01/02/16 tracheostomy Date of Insertion: Jun 06, 2016 A/P Problem List: (1) CVA (cerebral vascular accident) ICD Code: I63.9 Status: Acute (2) A-fib ICD Code: I48.91 Status: Chronic (3) DM (diabetes mellitus) ICD Code: E11.9 Status: Chronic Assessment and Plan 07/13: no acute issues , continue current care 07/14: Continue current care no acute issue A/P: 60-year-old male with past medical history of paroxysmal atrial fibrillation, hypertension, stage III a non-Hodgkin's lymphoma status post a chemotherapy last year. He came to the hospital with altered mental status, facial droop. 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 Non verbal. Continue Keppra. Palliative care following. PT/OT signed off. Chronic respiratory failure: Secondary to CVA, Status post tracheostomy. Continue pulmonary toilet and neb treatments as needed. Continue bronchodilators Xopenex, trach care, Levsin prn, suctioning. On 28% Os 07/05. A-fib: Continue rate control with Cardizem and metoprolol with holding parameters. Echocardiogram completed in November shows preserved EF. Coumadin discontinued secondary to bleeding. Continue with ASA and prophylactic heparin dose. If persistently without any bleeding, could consider restarting Coumadin. CBC stable. Heart rate stable 07/05. Continue to monitor. History of Non-Hodgkin lymphoma: s/p brain biopsy on December 13, by Neurosurgery, Dr. Marin. Pathology consistent with acute infarct without evidence of lymphoma. Oncology signed off with no active oncology issues. DM (diabetes mellitus): HgbA1c 7%. Continue Levemir 35u daily. Continue sliding scale coverage. Monitor accuchecks and adjust the regimen as needed. Decubitus ulcer stage IV: Continue Rocephin indefinitely (on lactinex) per ID until OM is ruled out with bone biopsy and watch for further bleeding (off warfarin due to bleeding which appears to have resolved). Continue dressing changes twice daily per wound care recommendations. Continue pressure relief measures, mattress, Turning and positioning. Patient's family declined a diverting colostomy. Continue wound care. Wound is growing Klebsiella. Continue ceftriaxone. Per ID on 07/05, continue antibiotics for however long pt is here and then possibly could switch to PO upon discharge. GI/Nutrition: Continue Nepro at 55 cc/hr per dietitian recommendations. Free water flushes. Potassium supplement. Tolerating tube feeds 07/05. DVT px - SCDs. Problem Qualifiers (1) DM (diabetes mellitus): Qualified Code: E11.9 - Type 2 diabetes mellitus without complications Terrence Gonzalez MD Jul 14, 2016 14:12
[2016-07-14] MEDS: PARoxetine HCL SUSP 20 MG/10 ML UDC PEG SCH (17:27)
[2016-07-14] MEDS: INSULIN DETEMIR 100 UNITS/ML VIAL SQ SCH (22:06)
[2016-07-15] VITALS (7 sets, daily range): BP systolic 101–123; BP diastolic 67–75; PULSE 72–86; RESP 22; TEMP 96.7–98.2; O2SAT 95–97
[2016-07-15] MEDS: FREE WATER TUBE SCH ×7 (00:20→23:18)
[2016-07-15] MEDS: ACETAMINOPHEN/HYDROcodone 325 MG/5 MG TAB PEG SCH ×5 (00:20→23:18)
[2016-07-15] MEDS: ACETIC ACID 0.25% SOLN 1000 ML IRR BTL IRRIGATION SCH ×3 (06:00→23:19)
[2016-07-15] MEDS: HEPARIN SODIUM - SQ 10,000 UNITS/ML VIAL SQ SCH ×3 (06:43→23:18)
[2016-07-15] MEDS: SODIUM CHLORIDE 0.9% FLUSH 5 ML FLUSH IVF PRN (08:58)
[2016-07-15] MEDS: ARTIFICIAL TEARS OPTH OINT 3.5 APPLIC/3.5 GM TUBO EACH EYE SCH ×2 (09:00→20:23)
[2016-07-15] MEDS: LACTOBACILLUS ACIDOPHILUS TAB PEG SCH ×3 (09:00→18:01)
[2016-07-15] MEDS: RANITIDINE HCL SYRUP 150 MG/10 ML UDC PO SCH (09:04)
[2016-07-15] MEDS: DILTIAZEM HCL 90 MG TAB PEG SCH ×4 (09:04→23:18)
[2016-07-15] MEDS: POTASSIUM CHLORIDE 25 MEQ EFFERVESCENT TAB TUBE SCH (09:04)
[2016-07-15] MEDS: levETIRAcetam 500 MG/5 ML UDC TUBE SCH ×2 (09:04→20:23)
[2016-07-15] MEDS: METOPROLOL TARTRATE 50 MG TAB PO SCH ×2 (09:04→23:18)
[2016-07-15] MEDS: ASPIRIN 325 MG TAB TUBE SCH (09:05)
[2016-07-15] MEDS: NYSTATIN 100,000 U/GM PWD 15 GM BTL TOPICAL SCH ×2 (09:05→20:24)
[2016-07-15] MEDS: cefTRIAXone INJ 2,000 MG in SODIUM CHLORIDE 0.9% INJ 100 ML IV SCH (12:00)
--- NOTE | 2016-07-15 12:08 | HHI.PR ---
Subjective Remarks Laying in bed, close eyes, no acute issue D/W the mother, she think he is doing improvement on his right hand movement Still no change in family orientation for the goal of treatment Objective Vitals Vital Signs Date Time Temp Pulse Resp B/P Pulse Ox O2 Delivery O2 Flow Rate FiO2 07/15/16 08:00 98.2 80 22 112/69 97 07/15/16 08:00 T-Piece 28 07/14/16 20:00 T-Piece 6.00 28 Humidified 07/14/16 20:00 95.8 80 18 113/64 96 07/14/16 19:00 T-Piece 6.00 28 Humidified 07/14/16 18:00 80 07/14/16 17:51 98 T-piece 6.00 28 I/O 07/14/16 07/14/16 07/14/16 07/15/16 07/15/16 07/15/16 06:59 14:59 22:59 06:59 14:59 22:59 Intake Total 910 ml 253 ml 1420 ml 200 ml Output Total 950 ml Balance 910 ml 253 ml -950 ml 1420 ml 200 ml Tube Feeding 510 ml 253 ml 740 ml Tube Irrigant 680 ml Other 400 ml 200 ml Output Urine Total 950 ml # Bowel Movements 3 Objective Remarks GENERAL:closed eyes , in bed.on T tube SKIN: Warm and dry. HEAD: Normocephalic. EYES: No scleral icterus. No injection or drainage. NECK: Supple, trachea midline. No JVD . CARDIOVASCULAR: Regular rate and rhythm without murmurs, gallops, or rubs. RESPIRATORY: Breath sounds equal bilaterally. No accessory muscle use. GASTROINTESTINAL: Abdomen soft, non-tender, nondistended. PEG tube in place. No surrounding erythema. MUSCULOSKELETAL: No cyanosis, or edema. Procedures 01/02/16 PEG placement 01/02/16 tracheostomy Date of Insertion: Jun 06, 2016 A/P Problem List: (1) CVA (cerebral vascular accident) ICD Code: I63.9 Status: Acute (2) A-fib ICD Code: I48.91 Status: Chronic (3) DM (diabetes mellitus) ICD Code: E11.9 Status: Chronic Assessment and Plan 07/13: no acute issues , continue current care 07/14: Continue current care no acute issue 07/15: No acute issue discussed with the mother, she thinks he is doing good progress on hands movement A/P: 60-year-old male with past medical history of paroxysmal atrial fibrillation, hypertension, stage III a non-Hodgkin's lymphoma status post a chemotherapy last year. He came to the hospital with altered mental status, facial droop. 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 Non verbal. Continue Keppra. Palliative care following. PT/OT signed off. Chronic respiratory failure: Secondary to CVA, Status post tracheostomy. Continue pulmonary toilet and neb treatments as needed. Continue bronchodilators Xopenex, trach care, Levsin prn, suctioning. On 28% Os 07/05. A-fib: Continue rate control with Cardizem and metoprolol with holding parameters. Echocardiogram completed in November shows preserved EF. Coumadin discontinued secondary to bleeding. Continue with ASA and prophylactic heparin dose. If persistently without any bleeding, could consider restarting Coumadin. CBC stable. Heart rate stable 07/05. Continue to monitor. History of Non-Hodgkin lymphoma: s/p brain biopsy on December 13, by Neurosurgery, Dr. Marin. Pathology consistent with acute infarct without evidence of lymphoma. Oncology signed off with no active oncology issues. DM (diabetes mellitus): HgbA1c 7%. Continue Levemir 35u daily. Continue sliding scale coverage. Monitor accuchecks and adjust the regimen as needed. Decubitus ulcer stage IV: Continue Rocephin indefinitely (on lactinex) per ID until OM is ruled out with bone biopsy and watch for further bleeding (off warfarin due to bleeding which appears to have resolved). Continue dressing changes twice daily per wound care recommendations. Continue pressure relief measures, mattress, Turning and positioning. Patient's family declined a diverting colostomy. Continue wound care. Wound is growing Klebsiella. Continue ceftriaxone. Per ID on 07/05, continue antibiotics for however long pt is here and then possibly could switch to PO upon discharge. GI/Nutrition: Continue Nepro at 55 cc/hr per dietitian recommendations. Free water flushes. Potassium supplement. Tolerating tube feeds 07/05. DVT px - SCDs. Problem Qualifiers (1) DM (diabetes mellitus): Qualified Code: E11.9 - Type 2 diabetes mellitus without complications Terrence Gonzalez MD Jul 15, 2016 12:08
[2016-07-15] MEDS: PARoxetine HCL SUSP 20 MG/10 ML UDC PEG SCH (18:01)
[2016-07-15] MEDS: INSULIN DETEMIR 100 UNITS/ML VIAL SQ SCH (20:22)
[2016-07-16] VITALS (10 sets, daily range): BP systolic 103–113; BP diastolic 65–72; PULSE 67–83; RESP 18–24; TEMP 95.9–98.2; O2SAT 94–100
[2016-07-16] MEDS: FREE WATER TUBE SCH ×5 (04:00→20:00)
[2016-07-16] MEDS: ACETAMINOPHEN/HYDROcodone 325 MG/5 MG TAB PEG SCH ×3 (06:21→18:40)
[2016-07-16] MEDS: HEPARIN SODIUM - SQ 10,000 UNITS/ML VIAL SQ SCH ×3 (06:22→20:55)
[2016-07-16] MEDS: ACETIC ACID 0.25% SOLN 1000 ML IRR BTL IRRIGATION SCH ×3 (06:41→21:07)
[2016-07-16] MEDS: DILTIAZEM HCL 90 MG TAB PEG SCH ×4 (07:40→20:55)
[2016-07-16] MEDS: LACTOBACILLUS ACIDOPHILUS TAB PEG SCH ×3 (07:40→18:40)
[2016-07-16] MEDS: ASPIRIN 325 MG TAB TUBE SCH (07:40)
[2016-07-16] MEDS: levETIRAcetam 500 MG/5 ML UDC TUBE SCH ×2 (07:40→20:55)
[2016-07-16] MEDS: RANITIDINE HCL SYRUP 150 MG/10 ML UDC PO SCH (07:40)
[2016-07-16] MEDS: POTASSIUM CHLORIDE 25 MEQ EFFERVESCENT TAB TUBE SCH (07:42)
[2016-07-16] MEDS: NYSTATIN 100,000 U/GM PWD 15 GM BTL TOPICAL SCH ×2 (07:42→21:00)
[2016-07-16] MEDS: ARTIFICIAL TEARS OPTH OINT 3.5 APPLIC/3.5 GM TUBO EACH EYE SCH ×2 (07:42→21:00)
[2016-07-16] MEDS: METOPROLOL TARTRATE 50 MG TAB PO SCH ×2 (07:42→20:56)
[2016-07-16] MEDS: RESP: LEVALBUTEROL HYDROCHLORIDE 0.63 MG/3 ML NEB (PRN) NEB (09:18)
[2016-07-16] MEDS: cefTRIAXone INJ 2,000 MG in SODIUM CHLORIDE 0.9% INJ 100 ML IV SCH (12:54)
--- NOTE | 2016-07-16 17:39 | HHI.PR ---
Subjective Remarks No change in the clinical picture I discussed with the mother who is very emotional, she was crying "it's my only son, I live with him, I will not leave him alone " Objective Vitals Vital Signs Date Time Temp Pulse Resp B/P Pulse Ox O2 Delivery O2 Flow Rate FiO2 07/16/16 16:00 97.1 75 20 108/68 98 07/16/16 12:02 97.9 67 18 103/66 100 07/16/16 09:18 96 T-piece 5.00 28 07/16/16 09:18 96 T-piece 5.00 28 07/16/16 08:59 76 07/16/16 08:00 T-Piece 28 07/16/16 07:52 96.9 75 20 113/72 97 07/16/16 06:38 98.2 74 22 113/67 94 07/16/16 00:25 95.9 76 24 107/65 97 07/15/16 23:19 86 123/75 07/15/16 23:18 T-Piece 6.00 07/15/16 23:00 85 07/15/16 21:12 96 T-piece 28 I/O 07/15/16 07/15/16 07/15/16 07/16/16 07/16/16 07/16/16 07:00 15:00 23:00 07:00 15:00 23:00 Intake Total 1420 ml 400 ml 200 ml 400 ml 200 ml Output Total 625 ml 400 ml 450 ml Balance 1420 ml -225 ml -200 ml -450 ml 400 ml 200 ml Tube Feeding 740 ml Tube Irrigant 680 ml Other 400 ml 200 ml 400 ml 200 ml Output Urine Total 625 ml 400 ml 450 ml # Bowel Movements 1 0 1 Objective Remarks GENERAL:closed eyes , in bed.on T tube SKIN: Warm and dry. HEAD: Normocephalic. EYES: No scleral icterus. No injection or drainage. NECK: Supple, trachea midline. No JVD . CARDIOVASCULAR: Regular rate and rhythm without murmurs, gallops, or rubs. RESPIRATORY: Breath sounds equal bilaterally. No accessory muscle use. GASTROINTESTINAL: Abdomen soft, non-tender, nondistended. PEG tube in place. No surrounding erythema. MUSCULOSKELETAL: No cyanosis, or edema. Procedures 01/02/16 PEG placement 01/02/16 tracheostomy Date of Insertion: Jun 06, 2016 A/P Problem List: (1) CVA (cerebral vascular accident) ICD Code: I63.9 Status: Acute (2) A-fib ICD Code: I48.91 Status: Chronic (3) DM (diabetes mellitus) ICD Code: E11.9 Status: Chronic Assessment and Plan 07/13: no acute issues , continue current care 07/14: Continue current care no acute issue 07/15: No acute issue discussed with the mother, she thinks he is doing good progress on hands movement 07/16: Continue current care, appreciate palliative care ongoing effort A/P: 60-year-old male with past medical history of paroxysmal atrial fibrillation, hypertension, stage III a non-Hodgkin's lymphoma status post a chemotherapy last year. He came to the hospital with altered mental status, facial droop. 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 Non verbal. Continue Keppra. Palliative care following. PT/OT signed off. Chronic respiratory failure: Secondary to CVA, Status post tracheostomy. Continue pulmonary toilet and neb treatments as needed. Continue bronchodilators Xopenex, trach care, Levsin prn, suctioning. On 28% Os 07/05. A-fib: Continue rate control with Cardizem and metoprolol with holding parameters. Echocardiogram completed in November shows preserved EF. Coumadin discontinued secondary to bleeding. Continue with ASA and prophylactic heparin dose. If persistently without any bleeding, could consider restarting Coumadin. CBC stable. Heart rate stable 07/05. Continue to monitor. History of Non-Hodgkin lymphoma: s/p brain biopsy on December 13, by Neurosurgery, Dr. Marin. Pathology consistent with acute infarct without evidence of lymphoma. Oncology signed off with no active oncology issues. DM (diabetes mellitus): HgbA1c 7%. Continue Levemir 35u daily. Continue sliding scale coverage. Monitor accuchecks and adjust the regimen as needed. Decubitus ulcer stage IV: Continue Rocephin indefinitely (on lactinex) per ID until OM is ruled out with bone biopsy and watch for further bleeding (off warfarin due to bleeding which appears to have resolved). Continue dressing changes twice daily per wound care recommendations. Continue pressure relief measures, mattress, Turning and positioning. Patient's family declined a diverting colostomy. Continue wound care. Wound is growing Klebsiella. Continue ceftriaxone. Per ID on 07/05, continue antibiotics for however long pt is here and then possibly could switch to PO upon discharge. GI/Nutrition: Continue Nepro at 55 cc/hr per dietitian recommendations. Free water flushes. Potassium supplement. Tolerating tube feeds 07/05. DVT px - SCDs. Problem Qualifiers (1) DM (diabetes mellitus): Qualified Code: E11.9 - Type 2 diabetes mellitus without complications Terrence Gonzalez MD Jul 16, 2016 17:39
[2016-07-16] MEDS: PARoxetine HCL SUSP 20 MG/10 ML UDC PEG SCH (18:40)
[2016-07-16] MEDS: INSULIN DETEMIR 100 UNITS/ML VIAL SQ SCH (20:55)
[2016-07-17] VITALS (8 sets, daily range): BP systolic 111–128; BP diastolic 69–85; PULSE 77–115; RESP 18–24; TEMP 96.8–97.6; O2SAT 95–100
[2016-07-17] MEDS: ACETAMINOPHEN/HYDROcodone 325 MG/5 MG TAB PEG SCH ×6 (00:53→23:54)
[2016-07-17] MEDS: FREE WATER TUBE SCH ×7 (04:00→23:54)
[2016-07-17] MEDS: HEPARIN SODIUM - SQ 10,000 UNITS/ML VIAL SQ SCH ×3 (06:00→21:28)
[2016-07-17] MEDS: ACETIC ACID 0.25% SOLN 1000 ML IRR BTL IRRIGATION SCH ×3 (06:05→21:30)
[2016-07-17] MEDS: ARTIFICIAL TEARS OPTH OINT 3.5 APPLIC/3.5 GM TUBO EACH EYE SCH ×2 (09:00→21:28)
[2016-07-17] MEDS: RANITIDINE HCL SYRUP 150 MG/10 ML UDC PO SCH (09:25)
[2016-07-17] MEDS: SODIUM CHLORIDE 0.9% FLUSH 5 ML FLUSH IVF PRN (09:25)
[2016-07-17] MEDS: levETIRAcetam 500 MG/5 ML UDC TUBE SCH ×2 (09:26→21:27)
[2016-07-17] MEDS: DILTIAZEM HCL 90 MG TAB PEG SCH ×5 (09:27→21:00)
[2016-07-17] MEDS: POTASSIUM CHLORIDE 25 MEQ EFFERVESCENT TAB TUBE SCH (09:27)
[2016-07-17] MEDS: ASPIRIN 325 MG TAB TUBE SCH (09:27)
[2016-07-17] MEDS: METOPROLOL TARTRATE 50 MG TAB PO SCH ×2 (09:27→21:27)
[2016-07-17] MEDS: LACTOBACILLUS ACIDOPHILUS TAB PEG SCH ×4 (09:27→19:10)
[2016-07-17] MEDS: NYSTATIN 100,000 U/GM PWD 15 GM BTL TOPICAL SCH ×2 (09:28→21:28)
[2016-07-17] MEDS: RESP: LEVALBUTEROL HYDROCHLORIDE 0.63 MG/3 ML NEB (PRN) NEB (11:44)
[2016-07-17] MEDS: cefTRIAXone INJ 2,000 MG in SODIUM CHLORIDE 0.9% INJ 100 ML IV SCH (12:34)
[2016-07-17] MEDS: INSULIN ASPART SUPPLEMENTAL SCALE SQ SCH (16:55)
--- NOTE | 2016-07-17 17:51 | HHI.PR ---
Subjective Remarks Laying in bed, open eyes to verbal stimuli, nonverbal on T piece Discussed with the mother at the bedside, she is concerned about holding his Cardizem Objective Vitals Vital Signs Date Time Temp Pulse Resp B/P Pulse Ox O2 Delivery O2 Flow Rate FiO2 07/17/16 17:24 99 T-piece 5.00 28 07/17/16 16:00 97.6 82 20 126/71 95 07/17/16 12:00 97.5 77 18 111/69 98 07/17/16 11:45 100 T-piece 5.00 07/17/16 11:45 100 T-piece 5.00 07/17/16 08:00 96.8 81 24 128/85 100 07/17/16 04:00 96.8 82 20 119/69 98 07/17/16 00:39 96.8 82 20 119/69 98 07/16/16 23:30 74 07/16/16 23:00 T-Piece 07/16/16 20:50 96.7 83 21 107/69 97 I/O 07/16/16 07/16/16 07/16/16 07/17/16 07/17/16 07/17/16 07:00 15:00 23:00 07:00 15:00 23:00 Intake Total 400 ml 200 ml Output Total 450 ml 350 ml 350 ml 1500 ml Balance -450 ml 50 ml -150 ml -1500 ml Other 400 ml 200 ml Output Urine Total 450 ml 350 ml 350 ml 1500 ml # Bowel Movements 1 3 2 4 Objective Remarks GENERAL:closed eyes , in bed.on T tube SKIN: Warm and dry. HEAD: Normocephalic. EYES: No scleral icterus. No injection or drainage. NECK: Supple, trachea midline. No JVD . CARDIOVASCULAR: Regular rate and rhythm without murmurs, gallops, or rubs. RESPIRATORY: Breath sounds equal bilaterally. No accessory muscle use. GASTROINTESTINAL: Abdomen soft, non-tender, nondistended. PEG tube in place. No surrounding erythema. MUSCULOSKELETAL: No cyanosis, or edema. Procedures 01/02/16 PEG placement 01/02/16 tracheostomy Date of Insertion: Jun 06, 2016 A/P Problem List: (1) CVA (cerebral vascular accident) ICD Code: I63.9 Status: Acute (2) A-fib ICD Code: I48.91 Status: Chronic (3) DM (diabetes mellitus) ICD Code: E11.9 Status: Chronic Assessment and Plan 07/13: no acute issues , continue current care 07/14: Continue current care no acute issue 07/15: No acute issue discussed with the mother, she thinks he is doing good progress on hands movement 07/16: Continue current care, appreciate palliative care ongoing effort 07/17: Blood pressure on the lower side with heart rate controlled he is on Lopressor 50 twice a day and Cardizem 90 4 times a day which has been held for any doses, will reduce that to 30 mg qid and monitor A/P: 60-year-old male with past medical history of paroxysmal atrial fibrillation, hypertension, stage III a non-Hodgkin's lymphoma status post a chemotherapy last year. He came to the hospital with altered mental status, facial droop. 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 Non verbal. Continue Keppra. Palliative care following. PT/OT signed off. Chronic respiratory failure: Secondary to CVA, Status post tracheostomy. Continue pulmonary toilet and neb treatments as needed. Continue bronchodilators Xopenex, trach care, Levsin prn, suctioning. On 28% Os 07/05. A-fib: Continue rate control, Cardizem and metoprolol with holding parameters. Echocardiogram completed in November shows preserved EF. Coumadin discontinued secondary to bleeding. Continue with ASA and prophylactic heparin dose. If persistently without any bleeding, could consider restarting Coumadin. CBC stable. Heart rate stable 07/05. Continue to monitor. History of Non-Hodgkin lymphoma: s/p brain biopsy on December 13, by Neurosurgery, Dr. Marin. Pathology consistent with acute infarct without evidence of lymphoma. Oncology signed off with no active oncology issues. DM (diabetes mellitus): HgbA1c 7%. Continue Levemir 35u daily. Continue sliding scale coverage. Monitor accuchecks and adjust the regimen as needed. Decubitus ulcer stage IV: Continue Rocephin indefinitely (on lactinex) per ID until OM is ruled out with bone biopsy and watch for further bleeding (off warfarin due to bleeding which appears to have resolved). Continue dressing changes twice daily per wound care recommendations. Continue pressure relief measures, mattress, Turning and positioning. Patient's family declined a diverting colostomy. Continue wound care. Wound is growing Klebsiella. Continue ceftriaxone. Per ID on 07/05, continue antibiotics for however long pt is here and then possibly could switch to PO upon discharge. GI/Nutrition: Continue Nepro at 55 cc/hr per dietitian recommendations. Free water flushes. Potassium supplement. Tolerating tube feeds 07/05. DVT px - SCDs. Problem Qualifiers (1) DM (diabetes mellitus): Qualified Code: E11.9 - Type 2 diabetes mellitus without complications Terrence Gonzalez MD Jul 17, 2016 17:51
[2016-07-17] MEDS: PARoxetine HCL SUSP 20 MG/10 ML UDC PEG SCH (19:11)
[2016-07-17 19:21] LABS: BASOPHIL % 0.8 % (0.0-2.0); EOSINOPHIL # 0.1 TH/MM3 (0-0.4); EOSINOPHIL % 2.5 % (0.0-4.0); HEMATOCRIT 33.2 % (39.0-51.0); LYMPH % 14.6 % (9.0-44.0); LYMPHOCYTE # 0.8 TH/MM3 (1.0-4.8); MEAN CORPUSCULAR HEMOGLOBIN 23.3 PG (27.0-34.0); MEAN CORPUSCULAR HGB CONC 30.6 % (32.0-36.0); MONO % 8.2 % (0.0-8.0); NEUT % 73.9 % (16.0-70.0); PLATELET COUNT 194 TH/MM3 (150-450); RED BLOOD COUNT 4.37 MIL/MM3 (4.50-5.90); RED CELL DISTRIBUTION WIDTH 19.7 % (11.6-17.2); WHITE BLOOD COUNT 5.4 TH/MM3 (4.0-11.0)
[2016-07-17 19:26] LABS: HEMO FLAGS AUTO DIFF
[2016-07-17 19:59] LABS: SCAN/DIFF AUTO DIFF CONFIRMED
[2016-07-17] MEDS: INSULIN DETEMIR 100 UNITS/ML VIAL SQ SCH (21:27)
[2016-07-18] VITALS (9 sets, daily range): BP systolic 111–132; BP diastolic 61–77; PULSE 70–86; RESP 20–22; TEMP 97.3–97.8; O2SAT 92–100
[2016-07-18] MEDS: FREE WATER TUBE SCH ×5 (04:00→20:00)
[2016-07-18] MEDS: HEPARIN SODIUM - SQ 10,000 UNITS/ML VIAL SQ SCH ×3 (05:13→22:54)
[2016-07-18] MEDS: ACETIC ACID 0.25% SOLN 1000 ML IRR BTL IRRIGATION SCH ×3 (05:13→22:00)
[2016-07-18] MEDS: ACETAMINOPHEN/HYDROcodone 325 MG/5 MG TAB PEG SCH ×3 (05:13→17:32)
[2016-07-18 07:39] LABS: AUTOMATED NEUTROPHIL # 2.8 TH/MM3 (1.8-7.7); BASOPHIL # 0.1 TH/MM3 (0-0.2); BASOPHIL % 1.1 % (0.0-2.0); EOSINOPHIL # 0.2 TH/MM3 (0-0.4); EOSINOPHIL % 3.7 % (0.0-4.0); HEMATOCRIT 32.6 % (39.0-51.0); LYMPH % 25.2 % (9.0-44.0); LYMPHOCYTE # 1.2 TH/MM3 (1.0-4.8); MEAN CELL VOLUME 74.5 FL (80.0-100.0); MEAN CORPUSCULAR HEMOGLOBIN 23.5 PG (27.0-34.0); MEAN CORPUSCULAR HGB CONC 31.6 % (32.0-36.0); MONO % 8.2 % (0.0-8.0); NEUT % 61.8 % (16.0-70.0); PLATELET COUNT 225 TH/MM3 (150-450); RED BLOOD COUNT 4.37 MIL/MM3 (4.50-5.90); WHITE BLOOD COUNT 4.6 TH/MM3 (4.0-11.0)
[2016-07-18 07:45] LABS: HEMO FLAGS AUTO DIFF
[2016-07-18 08:02] LABS: BICARBONATE 25.5 MEQ/L (21.0-32.0); POTASSIUM 3.8 MEQ/L (3.5-5.1)
[2016-07-18 08:37] LABS: SCAN/DIFF AUTO DIFF CONFIRMED
[2016-07-18] MEDS: METOPROLOL TARTRATE 50 MG TAB PO SCH ×2 (09:00→22:53)
[2016-07-18] MEDS: ASPIRIN 325 MG TAB TUBE SCH (09:00)
[2016-07-18] MEDS: DILTIAZEM HCL 90 MG TAB PEG SCH ×4 (09:05→21:00)
[2016-07-18] MEDS: LACTOBACILLUS ACIDOPHILUS TAB PEG SCH ×3 (09:05→17:31)
[2016-07-18] MEDS: levETIRAcetam 500 MG/5 ML UDC TUBE SCH ×2 (09:05→21:00)
[2016-07-18] MEDS: RANITIDINE HCL SYRUP 150 MG/10 ML UDC PO SCH (09:09)
[2016-07-18] MEDS: POTASSIUM CHLORIDE 25 MEQ EFFERVESCENT TAB TUBE SCH (09:09)
[2016-07-18] MEDS: NYSTATIN 100,000 U/GM PWD 15 GM BTL TOPICAL SCH ×2 (09:17→21:00)
[2016-07-18] MEDS: ARTIFICIAL TEARS OPTH OINT 3.5 APPLIC/3.5 GM TUBO EACH EYE SCH ×2 (09:18→21:00)
[2016-07-18] MEDS: cefTRIAXone INJ 2,000 MG in SODIUM CHLORIDE 0.9% INJ 100 ML IV SCH (12:00)
[2016-07-18] MEDS: PARoxetine HCL SUSP 20 MG/10 ML UDC PEG SCH (19:00)
--- NOTE | 2016-07-18 20:30 | HHI.PR ---
Subjective Remarks Patient seen earlier this afternoon No acute issue, laying in bed open eyes, no change Objective Vitals Vital Signs Date Time Temp Pulse Resp B/P Pulse Ox O2 Delivery O2 Flow Rate FiO2 07/18/16 17:53 82 07/18/16 16:31 97.7 75 22 124/70 92 07/18/16 12:27 97.5 74 22 124/69 97 07/18/16 08:55 97 T-piece 6.00 28 07/18/16 08:55 97 T-piece 6.00 28 07/18/16 08:30 97 T-Piece 5.00 07/18/16 08:24 97.8 82 22 124/77 97 07/18/16 06:00 20 07/18/16 04:00 97.3 86 22 132/73 98 07/18/16 00:00 97.4 70 22 114/61 97 I/O 07/17/16 07/17/16 07/17/16 07/18/16 07/18/16 07/18/16 06:59 14:59 22:59 06:59 14:59 22:59 Output Total 1500 ml 400 ml 800 ml 425 ml Balance -1500 ml -400 ml -800 ml -425 ml Output Urine Total 1500 ml 400 ml 800 ml 425 ml Tube Feeding Residual Discard 0 ml # Bowel Movements 4 0 1 Result Diagram: 07/18/1631 07/18/1631 Objective Remarks GENERAL:closed eyes , in bed.on T tube SKIN: Warm and dry. HEAD: Normocephalic. EYES: No scleral icterus. No injection or drainage. NECK: Supple, trachea midline. No JVD . CARDIOVASCULAR: Regular rate and rhythm without murmurs, gallops, or rubs. RESPIRATORY: Breath sounds equal bilaterally. No accessory muscle use. GASTROINTESTINAL: Abdomen soft, non-tender, nondistended. PEG tube in place. No surrounding erythema. MUSCULOSKELETAL: No cyanosis, or edema. Procedures 01/02/16 PEG placement 01/02/16 tracheostomy Date of Insertion: Jun 06, 2016 A/P Problem List: (1) CVA (cerebral vascular accident) ICD Code: I63.9 Status: Acute (2) A-fib ICD Code: I48.91 Status: Chronic (3) DM (diabetes mellitus) ICD Code: E11.9 Status: Chronic Assessment and Plan 07/18 No acute issue, continue current care A/P: 60-year-old male with past medical history of paroxysmal atrial fibrillation, hypertension, stage III a non-Hodgkin's lymphoma status post a chemotherapy last year. He came to the hospital with altered mental status, facial droop. 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 Non verbal. Continue Keppra. Palliative care following. PT/OT signed off. Chronic respiratory failure: Secondary to CVA, Status post tracheostomy. Continue pulmonary toilet and neb treatments as needed. Continue bronchodilators Xopenex, trach care, Levsin prn, suctioning. On 28% Os 07/05. A-fib: Continue rate control, Cardizem and metoprolol with holding parameters. Echocardiogram completed in November shows preserved EF. Coumadin discontinued secondary to bleeding. Continue with ASA and prophylactic heparin dose. If persistently without any bleeding, could consider restarting Coumadin. CBC stable. Heart rate stable 07/05. Continue to monitor. History of Non-Hodgkin lymphoma: s/p brain biopsy on December 13, by Neurosurgery, Dr. Marin. Pathology consistent with acute infarct without evidence of lymphoma. Oncology signed off with no active oncology issues. DM (diabetes mellitus): HgbA1c 7%. Continue Levemir 35u daily. Continue sliding scale coverage. Monitor accuchecks and adjust the regimen as needed. Decubitus ulcer stage IV: Continue Rocephin indefinitely (on lactinex) per ID until OM is ruled out with bone biopsy and watch for further bleeding (off warfarin due to bleeding which appears to have resolved). Continue dressing changes twice daily per wound care recommendations. Continue pressure relief measures, mattress, Turning and positioning. Patient's family declined a diverting colostomy. Continue wound care. Wound is growing Klebsiella. Continue ceftriaxone. Per ID on 07/05, continue antibiotics for however long pt is here and then possibly could switch to PO upon discharge. GI/Nutrition: Continue Nepro at 55 cc/hr per dietitian recommendations. Free water flushes. Potassium supplement. Tolerating tube feeds 07/05. DVT px - SCDs. Problem Qualifiers (1) DM (diabetes mellitus): Qualified Code: E11.9 - Type 2 diabetes mellitus without complications Terrence Gonzalez MD Jul 18, 2016 20:30 Problem Qualifiers (1) DM (diabetes mellitus): Qualified Code: E11.9 - Type 2 diabetes mellitus without complications Terrence Gonzalez MD Jul 18, 2016 20:30
[2016-07-18] MEDS: INSULIN DETEMIR 100 UNITS/ML VIAL SQ SCH (22:52)
[2016-07-19] VITALS (9 sets, daily range): BP systolic 107–128; BP diastolic 65–77; PULSE 76–115; RESP 18–22; TEMP 96.6–98.2; O2SAT 81–100
[2016-07-19] MEDS: ACETAMINOPHEN/HYDROcodone 325 MG/5 MG TAB PEG SCH ×5 (01:39→23:44)
[2016-07-19] MEDS: FREE WATER TUBE SCH ×7 (03:49→23:44)
[2016-07-19] MEDS: HEPARIN SODIUM - SQ 10,000 UNITS/ML VIAL SQ SCH ×3 (06:47→21:01)
[2016-07-19] MEDS: ACETIC ACID 0.25% SOLN 1000 ML IRR BTL IRRIGATION SCH ×3 (06:47→21:00)
[2016-07-19] MEDS: RANITIDINE HCL SYRUP 150 MG/10 ML UDC PO SCH (08:26)
[2016-07-19] MEDS: LACTOBACILLUS ACIDOPHILUS TAB PEG SCH ×3 (08:26→18:38)
[2016-07-19] MEDS: ASPIRIN 325 MG TAB TUBE SCH (08:26)
[2016-07-19] MEDS: levETIRAcetam 500 MG/5 ML UDC TUBE SCH ×2 (08:26→21:00)
[2016-07-19] MEDS: METOPROLOL TARTRATE 50 MG TAB PO SCH ×2 (08:26→21:00)
[2016-07-19] MEDS: POTASSIUM CHLORIDE 25 MEQ EFFERVESCENT TAB TUBE SCH (08:26)
[2016-07-19] MEDS: NYSTATIN 100,000 U/GM PWD 15 GM BTL TOPICAL SCH ×2 (08:27→21:00)
[2016-07-19] MEDS: DILTIAZEM HCL 90 MG TAB PEG SCH ×4 (08:27→20:58)
[2016-07-19] MEDS: ARTIFICIAL TEARS OPTH OINT 3.5 APPLIC/3.5 GM TUBO EACH EYE SCH ×2 (08:28→20:58)
--- NOTE | 2016-07-19 10:54 | HHI.HCPN ---
Palliative care continues to follow Mr. Flores and family for supportive visits. Mr. Flores' mother currently at bedside. Met with her briefly in hallway. Appears to be coping well today. No other family at bedside. Mother verbalizes she and family have no questions or concerns at this time. She feels patient appears comfortable today. Essentially patient's medical condition remains unchanged. Goals of care remain aggressive and unchanged. Offered emotional support. Confirmed they have palliative care contact information. Palliative care will continue to be available and follow throughout hospitalization to further clarify goals of care and provide support to patient and family. Shelly Jones, SIGN LANGUAGE TRANSLATOR Jul 19, 2016 10:54
[2016-07-19] MEDS: cefTRIAXone INJ 2,000 MG in SODIUM CHLORIDE 0.9% INJ 100 ML IV SCH (12:23)
--- NOTE | 2016-07-19 14:00 | HHI.PR ---
Subjective Remarks 07/19:no acute issue, stable , open eyes Objective Vitals Vital Signs Date Time Temp Pulse Resp B/P Pulse Ox O2 Delivery O2 Flow Rate FiO2 07/19/16 12:32 98.2 82 22 128/72 100 07/19/16 09:12 99 T-piece 6.00 28 07/19/16 09:08 98.0 81 22 116/68 81 07/19/16 05:30 115 07/19/16 04:26 98.1 76 20 117/77 98 07/19/16 03:03 19 07/19/16 00:46 96.6 84 18 114/72 100 07/18/16 22:00 99 T-Piece 28 Humidified 07/18/16 21:38 97 T-piece 28 07/18/16 21:38 97 T-piece 6.00 28 07/18/16 20:41 97.6 82 20 111/65 100 07/18/16 17:53 82 07/18/16 16:31 97.7 75 22 124/70 92 I/O 07/18/16 07/18/16 07/18/16 07/19/16 07/19/16 07/19/16 07:00 15:00 23:00 07:00 15:00 23:00 Intake Total 1000 ml Output Total 800 ml 425 ml 850 ml Balance -800 ml -425 ml 150 ml Tube Feeding 1000 ml Output Urine Total 800 ml 425 ml 850 ml # Bowel Movements 1 2 Result Diagram: 07/18/1631 07/18/16 0631 Objective Remarks GENERAL:closed eyes , in bed.on T tube SKIN: Warm and dry. HEAD: Normocephalic. EYES: No scleral icterus. No injection or drainage. NECK: Supple, trachea midline. No JVD . CARDIOVASCULAR: Regular rate and rhythm without murmurs, gallops, or rubs. RESPIRATORY: Breath sounds equal bilaterally. No accessory muscle use. GASTROINTESTINAL: Abdomen soft, non-tender, nondistended. PEG tube in place. No surrounding erythema. MUSCULOSKELETAL: No cyanosis, or edema. Procedures 01/02/16 PEG placement 01/02/16 tracheostomy Date of Insertion: Jun 06, 2016 A/P Problem List: (1) CVA (cerebral vascular accident) ICD Code: I63.9 Status: Acute (2) A-fib ICD Code: I48.91 Status: Chronic (3) DM (diabetes mellitus) ICD Code: E11.9 Status: Chronic Assessment and Plan 07/19: cont current care A/P: 60-year-old male with past medical history of paroxysmal atrial fibrillation, hypertension, stage III a non-Hodgkin's lymphoma status post a chemotherapy last year. He came to the hospital with altered mental status, facial droop. 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 Non verbal. Continue Keppra. Palliative care following. PT/OT signed off. Chronic respiratory failure: Secondary to CVA, Status post tracheostomy. Continue pulmonary toilet and neb treatments as needed. Continue bronchodilators Xopenex, trach care, Levsin prn, suctioning. On 28% Os 07/05. A-fib: Continue rate control, Cardizem and metoprolol with holding parameters. Echocardiogram completed in November shows preserved EF. Coumadin discontinued secondary to bleeding. Continue with ASA and prophylactic heparin dose. If persistently without any bleeding, could consider restarting Coumadin. CBC stable. Heart rate stable 07/05. Continue to monitor. History of Non-Hodgkin lymphoma: s/p brain biopsy on December 13, by Neurosurgery, Dr. Marin. Pathology consistent with acute infarct without evidence of lymphoma. Oncology signed off with no active oncology issues. DM (diabetes mellitus): HgbA1c 7%. Continue Levemir 35u daily. Continue sliding scale coverage. Monitor accuchecks and adjust the regimen as needed. Decubitus ulcer stage IV: Continue Rocephin indefinitely (on lactinex) per ID until OM is ruled out with bone biopsy and watch for further bleeding (off warfarin due to bleeding which appears to have resolved). Continue dressing changes twice daily per wound care recommendations. Continue pressure relief measures, mattress, Turning and positioning. Patient's family declined a diverting colostomy. Continue wound care. Wound is growing Klebsiella. Continue ceftriaxone. Per ID on 07/05, continue antibiotics for however long pt is here and then possibly could switch to PO upon discharge. GI/Nutrition: Continue Nepro at 55 cc/hr per dietitian recommendations. Free water flushes. Potassium supplement. Tolerating tube feeds 07/05. DVT px - SCDs. Problem Qualifiers (1) DM (diabetes mellitus): Qualified Code: E11.9 - Type 2 diabetes mellitus without complications Terrence Gonzalez MD Jul 19, 2016 14:00
[2016-07-19] MEDS: PARoxetine HCL SUSP 20 MG/10 ML UDC PEG SCH (18:37)
--- NOTE | 2016-07-19 19:09 | RADRPT ---
EXAM DATE/TIME: 07/19/2016 18:47 [facility] COMPARISON: CHEST SINGLE AP, May 16, 2016, 17:35. INDICATIONS : Evaluate for Infiltrate, Trach Replaced. MEDICAL HISTORY : Hypertension. Diabetes mellitus type II. Lymphoma. SURGICAL HISTORY : None. ENCOUNTER: Initial ACUITY: 1 day PAIN SCORE: Non-responsive. LOCATION: Bilateral chest FINDINGS: A single view of the chest demonstrates minimal bibasilar subsegmental atelectasis without evidence o f mass, infiltrate or effusion. A gastric tube unchanged. The cardiomediastinal contours are unremar kable. Osseous structures are intact. CONCLUSION: Bibasilar subsegmental atelectasis. No change. Mikie Vargas MD on July 19, 2016 at 19:06 Board Certified Radiologist. This report was verified electronically.
[2016-07-19] MEDS: INSULIN DETEMIR 100 UNITS/ML VIAL SQ SCH (21:00)
[2016-07-20] VITALS (9 sets, daily range): BP systolic 104–133; BP diastolic 64–74; PULSE 78–85; RESP 16–20; TEMP 96.7–97.8; O2SAT 96–100
[2016-07-20] MEDS: FREE WATER TUBE SCH ×6 (04:00→23:29)
[2016-07-20] MEDS: ACETIC ACID 0.25% SOLN 1000 ML IRR BTL IRRIGATION SCH ×3 (06:03→20:25)
[2016-07-20] MEDS: HEPARIN SODIUM - SQ 10,000 UNITS/ML VIAL SQ SCH ×3 (06:03→20:25)
[2016-07-20] MEDS: ACETAMINOPHEN/HYDROcodone 325 MG/5 MG TAB PEG SCH ×4 (06:03→23:29)
--- NOTE | 2016-07-20 08:18 | PD.PLAS.PN ---
Subjective Remarks Covering for Dr. Suh this week end I had a call from Ting yesterday regarding the opening on the sacral side narrowing down and making the packing difficult. Patient seen with nurse assistance. Wound opening is barely enough to allow one finger now. Inside pocket seems to have filled in a lot - nearly half the cavity is obliterated compared to the last time I saw this patient. Also there is no active bleeding now. I will plan to take him to the OR on Friday along with my other surgeries to make the skin opening larger and also to look inside the cavity. Vital Signs Date Time Temp Pulse Resp B/P Pulse Ox O2 Delivery O2 Flow Rate FiO2 07/20/16 04:00 97.0 83 16 109/74 97 07/20/16 02:43 80 07/20/16 02:09 19 07/20/16 00:00 97.1 80 20 124/74 07/19/16 22:00 100 T-Piece 6.00 28 Humidified 07/19/16 20:00 97.8 80 20 109/65 99 07/19/16 17:15 97.0 77 22 107/72 98 07/19/16 12:32 98.2 82 22 128/72 100 07/19/16 12:30 100 T-Piece 28 07/19/16 09:12 99 T-piece 6.00 28 07/19/16 09:08 98.0 81 22 116/68 81 I/O 07/19/16 07/19/16 07/19/16 07/20/16 07/20/16 07/20/16 06:59 14:59 22:59 06:59 14:59 22:59 Intake Total 1000 ml 200 ml 1400 ml Output Total 850 ml 300 ml 100 ml 500 ml Balance 150 ml -300 ml 100 ml 900 ml Tube Feeding 1000 ml 1000 ml Other 200 ml 400 ml Output Urine Total 850 ml 300 ml 100 ml 500 ml # Bowel Movements 2 2 1 2 Result Diagram: 07/18/1631 07/18/16630 Cecilio Yoder MD Jul 20, 2016 08:18
[2016-07-20] MEDS: RANITIDINE HCL SYRUP 150 MG/10 ML UDC PO SCH (08:57)
[2016-07-20] MEDS: POTASSIUM CHLORIDE 25 MEQ EFFERVESCENT TAB TUBE SCH (08:58)
[2016-07-20] MEDS: METOPROLOL TARTRATE 50 MG TAB PO SCH ×2 (08:58→20:25)
[2016-07-20] MEDS: LACTOBACILLUS ACIDOPHILUS TAB PEG SCH ×3 (08:58→18:00)
[2016-07-20] MEDS: ASPIRIN 325 MG TAB TUBE SCH (08:58)
[2016-07-20] MEDS: levETIRAcetam 500 MG/5 ML UDC TUBE SCH ×2 (08:58→20:25)
[2016-07-20] MEDS: DILTIAZEM HCL 90 MG TAB PEG SCH ×4 (08:58→21:00)
[2016-07-20] MEDS: ARTIFICIAL TEARS OPTH OINT 3.5 APPLIC/3.5 GM TUBO EACH EYE SCH ×2 (09:00→20:28)
[2016-07-20] MEDS: NYSTATIN 100,000 U/GM PWD 15 GM BTL TOPICAL SCH ×2 (09:06→20:25)
--- NOTE | 2016-07-20 09:56 | HHI.PR ---
Subjective Remarks Follow up on a lengthy stay patient with CVA, on trach and Tps Laying in bed, open eyes, looks comfortable Afebrile, placement combination Objective Vitals Vital Signs Date Time Temp Pulse Resp B/P Pulse Ox O2 Delivery O2 Flow Rate FiO2 07/20/16 04:00 97.0 83 16 109/74 97 07/20/16 02:43 80 07/20/16 02:09 19 07/20/16 00:00 97.1 80 20 124/74 07/19/16 22:00 100 T-Piece 6.00 28 Humidified 07/19/16 20:00 97.8 80 20 109/65 99 07/19/16 17:15 97.0 77 22 107/72 98 07/19/16 12:32 98.2 82 22 128/72 100 07/19/16 12:30 100 T-Piece 28 I/O 07/19/16 07/19/16 07/19/16 07/20/16 07/20/16 07/20/16 07:00 15:00 23:00 07:00 15:00 23:00 Intake Total 1000 ml 200 ml 1400 ml Output Total 850 ml 300 ml 100 ml 500 ml Balance 150 ml -300 ml 100 ml 900 ml Tube Feeding 1000 ml 1000 ml Other 200 ml 400 ml Output Urine Total 850 ml 300 ml 100 ml 500 ml # Bowel Movements 2 2 1 2 Result Diagram: 07/18/1663007/18/16630 Objective Remarks GENERAL:closed eyes , in bed.on T tube SKIN: Warm and dry. HEAD: Normocephalic. EYES: No scleral icterus. No injection or drainage. NECK: Supple, trachea midline. No JVD . CARDIOVASCULAR: Regular rate and rhythm without murmurs, gallops, or rubs. RESPIRATORY: Breath sounds equal bilaterally. No accessory muscle use. GASTROINTESTINAL: Abdomen soft, non-tender, nondistended. PEG tube in place. No surrounding erythema. MUSCULOSKELETAL: No cyanosis, or edema. Procedures 01/02/16 PEG placement 01/02/16 tracheostomy Date of Insertion: Jun 06, 2016 A/P Problem List: (1) CVA (cerebral vascular accident) ICD Code: I63.9 Status: Acute (2) A-fib ICD Code: I48.91 Status: Chronic (3) DM (diabetes mellitus) ICD Code: E11.9 Status: Chronic Assessment and Plan A/P: 60-year-old male with past medical history of paroxysmal atrial fibrillation, hypertension, stage III a non-Hodgkin's lymphoma status post a chemotherapy last year. He came to the hospital with altered mental status, facial droop. 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 Non verbal. Continue Keppra. Palliative care following. PT/OT signed off. Chronic respiratory failure: Secondary to CVA, Status post tracheostomy. Continue pulmonary toilet and neb treatments as needed. Continue bronchodilators Xopenex, trach care, Levsin prn, suctioning. On 28% Os 07/05. A-fib: Continue rate control, Cardizem and metoprolol with holding parameters. Echocardiogram completed in November shows preserved EF. Coumadin discontinued secondary to bleeding. Continue with ASA and prophylactic heparin dose. If persistently without any bleeding, could consider restarting Coumadin. CBC stable. Heart rate stable 07/05. Continue to monitor. History of Non-Hodgkin lymphoma: s/p brain biopsy on December 13, by Neurosurgery, Dr. Marin. Pathology consistent with acute infarct without evidence of lymphoma. Oncology signed off with no active oncology issues. DM (diabetes mellitus): HgbA1c 7%. Continue Levemir 35u daily. Continue sliding scale coverage. Monitor accuchecks and adjust the regimen as needed. Decubitus ulcer stage IV: Continue Rocephin indefinitely (on lactinex) per ID until OM is ruled out with bone biopsy and watch for further bleeding (off warfarin due to bleeding which appears to have resolved). Continue dressing changes twice daily per wound care recommendations. Continue pressure relief measures, mattress, Turning and positioning. Patient's family declined a diverting colostomy. Continue wound care. Wound is growing Klebsiella. Continue ceftriaxone. Per ID on 07/05, continue antibiotics for however long pt is here and then possibly could switch to PO upon discharge. GI/Nutrition: Continue Nepro at 55 cc/hr per dietitian recommendations. Free water flushes. Potassium supplement. Tolerating tube feeds 07/05. DVT px - SCDs. Problem Qualifiers (1) DM (diabetes mellitus): Qualified Code: E11.9 - Type 2 diabetes mellitus without complications Terrence Gonzalez MD Jul 20, 2016 09:56
[2016-07-20] MEDS: cefTRIAXone INJ 2,000 MG in SODIUM CHLORIDE 0.9% INJ 100 ML IV SCH (13:11)
[2016-07-20] MEDS: BACITRACIN TOP OINT 15 GM TUBE TOP SCH ×2 (13:12→20:26)
[2016-07-20] MEDS: PARoxetine HCL SUSP 20 MG/10 ML UDC PEG SCH (18:00)
[2016-07-20] MEDS: INSULIN DETEMIR 100 UNITS/ML VIAL SQ SCH (20:25)
[2016-07-21] VITALS (10 sets, daily range): BP systolic 108–129; BP diastolic 69–80; PULSE 75–85; RESP 16–24; TEMP 96.1–98.7; O2SAT 97–100
[2016-07-21] MEDS: FREE WATER TUBE SCH ×6 (04:55→23:37)
[2016-07-21] MEDS: HEPARIN SODIUM - SQ 10,000 UNITS/ML VIAL SQ SCH ×3 (05:15→21:47)
[2016-07-21] MEDS: ACETAMINOPHEN/HYDROcodone 325 MG/5 MG TAB PEG SCH ×4 (05:15→23:31)
[2016-07-21] MEDS: ACETIC ACID 0.25% SOLN 1000 ML IRR BTL IRRIGATION SCH ×3 (05:15→21:52)
[2016-07-21] MEDS: levETIRAcetam 500 MG/5 ML UDC TUBE SCH ×2 (08:04→21:06)
[2016-07-21] MEDS: METOPROLOL TARTRATE 50 MG TAB PO SCH ×2 (08:04→21:07)
[2016-07-21] MEDS: NYSTATIN 100,000 U/GM PWD 15 GM BTL TOPICAL SCH ×2 (08:04→21:07)
[2016-07-21] MEDS: ASPIRIN 325 MG TAB TUBE SCH (08:04)
[2016-07-21] MEDS: RANITIDINE HCL SYRUP 150 MG/10 ML UDC PO SCH (08:04)
[2016-07-21] MEDS: POTASSIUM CHLORIDE 25 MEQ EFFERVESCENT TAB TUBE SCH (08:04)
[2016-07-21] MEDS: DILTIAZEM HCL 90 MG TAB PEG SCH ×4 (08:04→21:07)
[2016-07-21] MEDS: LACTOBACILLUS ACIDOPHILUS TAB PEG SCH ×3 (08:04→18:27)
[2016-07-21] MEDS: BACITRACIN TOP OINT 15 GM TUBE TOP SCH ×2 (08:05→21:08)
[2016-07-21] MEDS: ARTIFICIAL TEARS OPTH OINT 3.5 APPLIC/3.5 GM TUBO EACH EYE SCH ×2 (08:05→21:00)
[2016-07-21] MEDS: cefTRIAXone INJ 2,000 MG in SODIUM CHLORIDE 0.9% INJ 100 ML IV SCH (13:11)
[2016-07-21] MEDS: LACTATED RINGER'S 1000 ML IV SCH (17:45)
[2016-07-21] MEDS: PARoxetine HCL SUSP 20 MG/10 ML UDC PEG SCH (18:27)
[2016-07-21] MEDS: INSULIN DETEMIR 100 UNITS/ML VIAL SQ SCH (21:09)
[2016-07-22] VITALS (11 sets, daily range): BP systolic 115–140; BP diastolic 70–87; PULSE 70–79; RESP 16–20; TEMP 96.1–97.6; O2SAT 94–100
--- NOTE | 2016-07-22 01:36 | HHI.PR ---
Subjective Remarks Late entry for 07/21/2016. Follow up for left MCA stroke, respiratory failure. Mr. Flores remains aphaisc. Closes his eyes on simple commands. He does not move his arms or legs. There was some movement of his right hand but only when patient's mother lifts the hand up. Objective Vitals Vital Signs Date Time Temp Pulse Resp B/P Pulse Ox O2 Delivery O2 Flow Rate FiO2 07/22/16 01:33 97 T-piece 6.00 28 07/22/16 01:33 97 T-piece 6.00 28 07/22/16 00:00 97.2 70 20 122/70 99 07/21/16 20:00 98 T-Piece 6.00 28 07/21/16 20:00 96.1 79 20 121/79 98 07/21/16 17:51 76 07/21/16 16:00 97.5 75 23 117/77 98 07/21/16 12:00 96.6 76 21 120/69 98 07/21/16 09:32 99 T-piece 28 07/21/16 08:00 97.7 85 24 129/72 97 07/21/16 08:00 T-Piece 28 07/21/16 08:00 79 07/21/16 04:00 98.7 76 18 108/80 97 07/21/16 02:20 97 T-piece 6.00 28 I/O 07/21/16 07/21/16 07/21/16 07/22/16 07/22/16 07/22/16 06:59 14:59 22:59 06:59 14:59 22:59 Intake Total 200 ml 400 ml 200 ml Output Total 300 ml 225 ml 750 ml Balance -100 ml 175 ml -550 ml Other 200 ml 400 ml 200 ml Output Urine Total 300 ml 225 ml 750 ml # Bowel Movements 0 0 Result Diagram: 07/18/16 0631 07/18/16 0631 Imaging Last Impressions Chest X-Ray 07/19/16 0000 Signed Impressions: Service Date/Time: Tuesday, July 19, 2016 18:47 - CONCLUSION: Bibasilar subsegmental atelectasis. No change. Mikie Vargas MD Abdomen/Pelvis CT 04/12/16 0000 Signed Impressions: Service Date/Time: Tuesday, April 12, 2016 20:52 - CONCLUSION: 1. 6.4 cm necrotic mass or abscess in the soft tissues posteriorly just below the sacrum associated with some bony destructive change of the lower most sacrum and coccyx with inflammatory changes extending into the ischiorectal fossa and into the presacral retroperitoneum predominantly on the left side. There is associated fairly marked mural thickening of the anal verge and rectum. 2. There is gastrostomy and Arevalo catheter present. Stable abdominal aortic aneurysm. Durga Dotson MD Head Magnetic Resonance Angiography 03/05/16 0000 Signed Impressions: Service Date/Time: Saturday, March 05, 2016 09:26 - CONCLUSION: Persistent high-grade subtotal occlusive stenotic lesions in the distal right vertebral artery and proximal basilar artery with significant improvement in flow and recanalization following initial presentation of thrombosis. Stable interstitial circulation without significant stenosis. 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 There is decreasing restricted diffusion and increasing loss of volume characteristic of a subacute to chronic infarct. No evidence of acute infarct, acute hemorrhage mass or edema. Ernesto Kulkarni MD Head CT 01/16/16 0000 Signed Impressions: Service Date/Time: Saturday, January 16, 2016 10:51 - CONCLUSION: No extensive low density in the brainstem coiln more prominent in the right the left extending into the right middle cerebellar peduncle consistent with brainstem infarct nonhemorrhagic acute Wellington West MD Abdomen X-Ray 01/14/16 0000 Signed Impressions: Service Date/Time: Thursday, January 14, 2016 10:19 - CONCLUSION: Moderate stool; otherwise, negative. 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 No evidence of carotid stenosis. Glen Zamora MD Head/Brain Mag Res Venography 12/22/15 0000 Signed Impressions: Service Date/Time: Tuesday, December 22, 2015 09:22 - CONCLUSION: Normal MRV. Jonel Jones Jr., MD Objective Remarks GENERAL: Eyes open, closes eyes on command. No verbal communication. SKIN: Warm and dry. HEAD: Normocephalic. EYES: No scleral icterus. No injection or drainage. NECK: Supple, trachea midline. No JVD or lymphadenopathy. CARDIOVASCULAR: Regular rate and rhythm without murmurs, gallops, or rubs. RESPIRATORY: Coarse breath sounds. No accessory muscle use. GASTROINTESTINAL: Abdomen soft, non-tender, nondistended. MUSCULOSKELETAL: No cyanosis, or edema. BACK: Nontender without obvious deformity. No CVA tenderness. Procedures 01/02/16 PEG placement 01/02/16 tracheostomy Date of Insertion: Jun 06, 2016 A/P Problem List: (1) CVA (cerebral vascular accident) ICD Code: I63.9 Status: Acute (2) A-fib ICD Code: I48.91 Status: Chronic (3) DM (diabetes mellitus) ICD Code: E11.9 Status: Chronic Assessment and Plan 60-year-old male with past medical history of paroxysmal atrial fibrillation, hypertension, stage III a non-Hodgkin's lymphoma status post a chemotherapy last year. He came to the hospital with altered mental status, facial droop. 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 Non verbal. Continue Keppra. Palliative care following. PT/OT signed off. Chronic respiratory failure: Secondary to CVA, Status post tracheostomy. Continue pulmonary toilet and neb treatments as needed. Continue bronchodilators Xopenex, trach care, Levsin prn, suctioning. On 28% Os 07/05. A-fib: Continue rate control, Cardizem and metoprolol with holding parameters. Echocardiogram completed in November shows preserved EF. Coumadin discontinued secondary to bleeding. Continue with ASA and prophylactic heparin dose. If persistently without any bleeding, could consider restarting Coumadin. CBC stable. Heart rate stable 07/05. Continue to monitor. History of Non-Hodgkin lymphoma: s/p brain biopsy on December 13, by Neurosurgery, Dr. Marin. Pathology consistent with acute infarct without evidence of lymphoma. Oncology signed off with no active oncology issues. DM (diabetes mellitus): HgbA1c 7%. Continue Levemir 35u daily. Continue sliding scale coverage. Monitor accuchecks and adjust the regimen as needed. Decubitus ulcer stage IV: Continue Rocephin indefinitely (on lactinex) per ID until OM is ruled out with bone biopsy and watch for further bleeding (off warfarin due to bleeding which appears to have resolved). Continue dressing changes twice daily per wound care recommendations. Continue pressure relief measures, mattress, Turning and positioning. Patient's family declined a diverting colostomy. Continue wound care. Wound is growing Klebsiella. Continue ceftriaxone. Per ID on 07/05, continue antibiotics for however long pt is here and then possibly could switch to PO upon discharge. GI/Nutrition: Continue Nepro at 55 cc/hr per dietitian recommendations. Free water flushes. Potassium supplement. Tolerating tube feeds 07/05. DVT px - SCDs 07/21/2016 : Will continue current care. Surgical I&D on 07/22/2016. Problem Qualifiers (1) DM (diabetes mellitus): Qualified Code: E11.9 - Type 2 diabetes mellitus without complications Birdie Leal DO Jul 22, 2016 01:36
[2016-07-22] MEDS: FREE WATER TUBE SCH ×5 (03:50→21:18)
[2016-07-22] MEDS: ACETIC ACID 0.25% SOLN 1000 ML IRR BTL IRRIGATION SCH ×3 (05:24→21:19)
[2016-07-22] MEDS: ACETAMINOPHEN/HYDROcodone 325 MG/5 MG TAB PEG SCH ×3 (05:28→18:07)
[2016-07-22] MEDS: HEPARIN SODIUM - SQ 10,000 UNITS/ML VIAL SQ SCH ×3 (05:28→21:18)
[2016-07-22] MEDS: METOPROLOL TARTRATE 50 MG TAB PO SCH ×2 (08:04→21:17)
[2016-07-22] MEDS: POTASSIUM CHLORIDE 25 MEQ EFFERVESCENT TAB TUBE SCH (08:04)
[2016-07-22] MEDS: LACTOBACILLUS ACIDOPHILUS TAB PEG SCH ×3 (08:04→18:07)
[2016-07-22] MEDS: RANITIDINE HCL SYRUP 150 MG/10 ML UDC PO SCH (08:05)
[2016-07-22] MEDS: levETIRAcetam 500 MG/5 ML UDC TUBE SCH ×2 (08:05→21:17)
[2016-07-22] MEDS: ARTIFICIAL TEARS OPTH OINT 3.5 APPLIC/3.5 GM TUBO EACH EYE SCH ×2 (08:05→21:18)
[2016-07-22] MEDS: ASPIRIN 325 MG TAB TUBE SCH (09:00)
[2016-07-22] MEDS: DILTIAZEM HCL 90 MG TAB PEG SCH ×4 (09:00→21:17)
[2016-07-22] MEDS: BACITRACIN TOP OINT 15 GM TUBE TOP SCH ×2 (09:00→21:18)
[2016-07-22] MEDS: NYSTATIN 100,000 U/GM PWD 15 GM BTL TOPICAL SCH ×2 (09:00→21:19)
[2016-07-22] MEDS: cefTRIAXone INJ 2,000 MG in SODIUM CHLORIDE 0.9% INJ 100 ML IV SCH (12:34)
--- NOTE | 2016-07-22 14:31 | HHI.PR ---
Subjective Remarks Follow up for left MCA stroke, respiratory failure. Mr. Flores underwent surgical I&D today for his sacral wound. He remains aphasic. He does close his eyes on commands. Moves his right index finger when hand is lifted. Otherwise not much other response. Objective Vitals Vital Signs Date Time Temp Pulse Resp B/P Pulse Ox O2 Delivery O2 Flow Rate FiO2 07/22/16 12:05 100 T-piece 28 07/22/16 11:55 96.1 72 20 115/72 94 07/22/16 09:40 97 T-Piece 6.00 28 07/22/16 08:40 97.6 73 20 118/79 98 07/22/16 06:47 97.6 74 18 134/81 99 07/22/16 01:33 97 T-piece 6.00 07/22/16 01:33 97 T-piece 6.00 07/22/16 00:00 97.2 70 20 122/70 99 07/21/16 20:00 98 T-Piece 6.00 07/21/16 20:00 96.1 79 20 121/79 98 07/21/16 17:51 76 07/21/16 16:00 97.5 75 23 117/77 98 I/O 07/21/16 07/21/16 07/21/16 07/22/16 07/22/16 07/22/16 07:00 15:00 23:00 07:00 15:00 23:00 Intake Total 200 ml 400 ml 620 ml 400 ml Output Total 300 ml 225 ml 750 ml 1000 ml 300 ml Balance -100 ml 175 ml -130 ml -600 ml -300 ml Tube Feeding 220 ml Other 200 ml 400 ml 400 ml 400 ml Output Urine Total 300 ml 225 ml 750 ml 1000 ml 300 ml # Bowel Movements 0 0 0 1 Result Diagram: 07/18/1663007/18/16630 Objective Remarks GENERAL: Eyes open, closes eyes on command. No verbal communication. SKIN: Warm and dry. HEAD: Normocephalic. EYES: No scleral icterus. No injection or drainage. NECK: Supple, trachea midline. No JVD or lymphadenopathy. CARDIOVASCULAR: Regular rate and rhythm without murmurs, gallops, or rubs. RESPIRATORY: Coarse breath sounds. No accessory muscle use. GASTROINTESTINAL: Abdomen soft, non-tender, nondistended. MUSCULOSKELETAL: No cyanosis, or edema. BACK: Nontender without obvious deformity. No CVA tenderness. Procedures 01/02/16 PEG placement 01/02/16 tracheostomy 07/22/2016 Wide excision of sacral skin wound, biopsy of the cavity lining and debridement. Date of Insertion: Jun 06, 2016 A/P Problem List: (1) CVA (cerebral vascular accident) ICD Code: I63.9 Status: Acute (2) A-fib ICD Code: I48.91 Status: Chronic (3) DM (diabetes mellitus) ICD Code: E11.9 Status: Chronic Assessment and Plan 60-year-old male with past medical history of paroxysmal atrial fibrillation, hypertension, stage III a non-Hodgkin's lymphoma status post a chemotherapy last year. He came to the hospital with altered mental status, facial droop. 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 Non verbal. Continue Keppra. Palliative care following. PT/OT signed off. Chronic respiratory failure: Secondary to CVA, Status post tracheostomy. Continue pulmonary toilet and neb treatments as needed. Continue bronchodilators Xopenex, trach care, Levsin prn, suctioning. On 28% Os 07/05. A-fib: Continue rate control, Cardizem and metoprolol with holding parameters. Echocardiogram completed in November shows preserved EF. Coumadin discontinued secondary to bleeding. Continue with ASA and prophylactic heparin dose. If persistently without any bleeding, could consider restarting Coumadin. CBC stable. Heart rate stable 07/05. Continue to monitor. History of Non-Hodgkin lymphoma: s/p brain biopsy on December 13, by Neurosurgery, Dr. Marin. Pathology consistent with acute infarct without evidence of lymphoma. Oncology signed off with no active oncology issues. DM (diabetes mellitus): HgbA1c 7%. Continue Levemir 35u daily. Continue sliding scale coverage. Monitor accuchecks and adjust the regimen as needed. Decubitus ulcer stage IV: Continue Rocephin indefinitely (on lactinex) per ID until OM is ruled out with bone biopsy and watch for further bleeding (off warfarin due to bleeding which appears to have resolved). Continue dressing changes twice daily per wound care recommendations. Continue pressure relief measures, mattress, Turning and positioning. Patient's family declined a diverting colostomy. Continue wound care. Wound is growing Klebsiella. Continue ceftriaxone. Per ID on 07/05, continue antibiotics for however long pt is here and then possibly could switch to PO upon discharge. - s/p Wide excision of sacral skin wound, biopsy of the cavity lining and debridement on 07/22/2016. GI/Nutrition: Continue Nepro at 55 cc/hr per dietitian recommendations. Free water flushes. Potassium supplement. Tolerating tube feeds 07/05. DVT px - SCDs Discharge plan: I discussed at length with patient's brother who is a practicing pharmacist in [place]. I have explained to him that overall prognosis is poor. He would not qualify for in patient rehab and probably not SNF either. More over, his insurance benefit would not provide any SNF coverage. Patient's brother explained that sending patient home would be extremely unsafe since the sole caregiver would be patient's 83 year old mother. I agreed that sending patient home would not be a safe discharge. After this discussion I went on to explain that IF there is no further surgical need, patient can be sent to [facility]. I have explained well that [facility] is an acute care hospital and nursing care, provider rounding are the same. And while at [place], if there is any need for interventions that cannot be done at [facility], patient can be transferred back to the [facility]. Unfortunately, patient's family member, based on my discussion with patient's brother has very unrealistic expectation. Patient's brother wants to keep patient in the [facility] until he is better, able to move on his own. Later he suggested that at least 6 more weeks of hospital stay in the [facility] following today's (07/22/2016) surgical I&D. I have explained that - that' s not how acute care is operated. Once there is no further need for acute care, patients are usually sent home/SNF/inpatient rehab etc. Overall our plan would be to continue current care. If there is no further surgical intervention planned and after checking with Dr. Yoder, patient can be sent to [facility] since there is no safe discharge possibility in the foreseeable future. Problem Qualifiers (1) DM (diabetes mellitus): Qualified Code: E11.9 - Type 2 diabetes mellitus without complications Birdie Leal 2, 2017 14:31
--- NOTE | 2016-07-22 15:26 | MP ---
cc: TERESA YODER M.D. DATE OF SURGERY: 07/22/2016 PREOPERATIVE DIAGNOSIS Large sacral wound cavity with a small opening. POSTOPERATIVE DIAGNOSIS Large sacral wound cavity with a small opening. OPERATION Wide excision of sacral skin wound, biopsy of the cavity lining and debridement. SURGEON Dr. Yoder ANESTHESIA General. INDICATIONS This is a 60-year-old [place] male who has been in the hospital since December 2015 with a brain lesion. He has been bedridden ever since. He was found to have an opening on the mid sacral coccygeal area several months ago and had an internal pocket that was very large extending in front of the sacrum and coccyx internally. It has a history of extensive bleeding and friable tissue approximately back in May. Now it is much more stable and has been packed and dressed every day. Since the opening is too small for packing right now it needs to be enlarged to allow better wound care. PROCEDURE The patient was brought to the operating room, was given a supine position. Anesthesia was started. The patient was placed in the left lateral position with adequate support. A timeout was called and completed. Prep and drape was done. The soft tissue surrounding the skin opening was tumesced with saline and lidocaine with epinephrine solution. The vertical 12 o'clock and 6 o'clock skin was incised with a direct coagulating Bovie current to control the bleeding while checking the inside cavity dimensions. The overall opening made was approximately 3 inches vertical. The skin edges on both lateral aspects were also excised. Hemostasis was done with suture ligature where needed. The cavity lining was inspected. It is mostly granulating tissue without any sign of tumor tissue. A culture sample was taken from the cavity and also a triangular wedge of the cavity lining was taken for biopsy taking it high up behind the sacrum. It should be noted that most of the coccyx and part of the sacrum are missing and the soft tissue just below that might be the posterior wall of the rectum. Hemostasis was once again checked. The cavity was irrigated clean and packed with saline wet-to-dry dressing. The patient remained stable. Intraoperative blood loss less than 10 cc. No complications. signed, not fully reviewed MD ANABELLA Cates/KENDRICK /11:24 AM /3:18 PM GENNARO
[2016-07-22] MEDS: LACTATED RINGER'S 1000 ML IV SCH (17:45)
[2016-07-22] MEDS: PARoxetine HCL SUSP 20 MG/10 ML UDC PEG SCH (18:12)
[2016-07-22] MEDS: INSULIN DETEMIR 100 UNITS/ML VIAL SQ SCH (21:18)
[2016-07-23] VITALS (9 sets, daily range): BP systolic 103–125; BP diastolic 60–77; PULSE 72–80; RESP 19–22; TEMP 96.3–98.6; O2SAT 96–100
[2016-07-23] MEDS: ACETAMINOPHEN/HYDROcodone 325 MG/5 MG TAB PEG SCH ×4 (00:09→18:25)
[2016-07-23] MEDS: FREE WATER TUBE SCH ×6 (00:09→20:00)
[2016-07-23] MEDS: HEPARIN SODIUM - SQ 10,000 UNITS/ML VIAL SQ SCH ×3 (05:54→23:07)
[2016-07-23] MEDS: ACETIC ACID 0.25% SOLN 1000 ML IRR BTL IRRIGATION SCH ×3 (05:54→22:00)
[2016-07-23] MEDS: ASPIRIN 325 MG TAB TUBE SCH (08:00)
[2016-07-23] MEDS: RANITIDINE HCL SYRUP 150 MG/10 ML UDC PO SCH (08:00)
[2016-07-23] MEDS: METOPROLOL TARTRATE 50 MG TAB PO SCH ×2 (08:00→23:07)
[2016-07-23] MEDS: levETIRAcetam 500 MG/5 ML UDC TUBE SCH ×2 (08:00→23:06)
[2016-07-23] MEDS: LACTOBACILLUS ACIDOPHILUS TAB PEG SCH ×3 (08:00→18:26)
[2016-07-23] MEDS: POTASSIUM CHLORIDE 25 MEQ EFFERVESCENT TAB TUBE SCH (08:00)
[2016-07-23] MEDS: DILTIAZEM HCL 90 MG TAB PEG SCH ×4 (08:00→23:07)
[2016-07-23] MEDS: BACITRACIN TOP OINT 15 GM TUBE TOP SCH ×2 (08:01→21:00)
[2016-07-23] MEDS: NYSTATIN 100,000 U/GM PWD 15 GM BTL TOPICAL SCH ×2 (08:01→21:00)
[2016-07-23] MEDS: ARTIFICIAL TEARS OPTH OINT 3.5 APPLIC/3.5 GM TUBO EACH EYE SCH ×2 (08:01→21:00)
--- NOTE | 2016-07-23 09:57 | HHI.PR ---
Subjective Remarks Follow up for left MCA stroke, respiratory failure, decubitus ulcer. Patient remains aphasic, does not follow commands except closes his eyes on command and appears to move his right sided fingers little bit. No fever, chills. Mother at bedside. Objective Vitals Vital Signs Date Time Temp Pulse Resp B/P Pulse Ox O2 Delivery O2 Flow Rate FiO2 07/23/16 08:30 99 T-Piece 6.00 28 07/23/16 08:16 99 T-piece 6.00 28 07/23/16 08:16 99 T-piece 6.00 28 07/23/16 07:15 97.5 79 20 125/77 100 07/23/16 00:12 96.3 73 22 120/74 98 07/22/16 21:40 97 T-piece 6.00 28 07/22/16 21:15 97.3 77 16 120/73 97 07/22/16 20:00 T-Piece 6.00 28 07/22/16 18:12 123/74 07/22/16 18:02 79 07/22/16 16:30 97.0 79 20 140/87 100 07/22/16 12:05 100 T-piece 28 07/22/16 11:55 96.1 72 20 115/72 94 I/O 07/22/16 07/22/16 07/22/16 07/23/16 07/23/16 07/23/16 06:59 14:59 22:59 06:59 14:59 22:59 Intake Total 400 ml 804 ml Output Total 1000 ml 300 ml 300 ml 900 ml Balance -600 ml -300 ml -300 ml -96 ml Tube Feeding 404 ml Other 400 ml 400 ml Output Urine Total 1000 ml 300 ml 300 ml 900 ml # Bowel Movements 0 1 1 2 Objective Remarks GENERAL: Eyes open, closes eyes on command. No verbal communication. SKIN: Warm and dry. HEAD: Normocephalic. EYES: No scleral icterus. No injection or drainage. NECK: Supple, trachea midline. No JVD or lymphadenopathy. CARDIOVASCULAR: Regular rate and rhythm without murmurs, gallops, or rubs. RESPIRATORY: Coarse breath sounds. No accessory muscle use. GASTROINTESTINAL: Abdomen soft, non-tender, nondistended. MUSCULOSKELETAL: No cyanosis, or edema. BACK: Nontender without obvious deformity. No CVA tenderness. Procedures 01/02/16 PEG placement 01/02/16 tracheostomy 07/22/2016 Wide excision of sacral skin wound, biopsy of the cavity lining and debridement. Date of Insertion: Jun 06, 2016 A/P Problem List: (1) CVA (cerebral vascular accident) ICD Code: I63.9 Status: Acute (2) A-fib ICD Code: I48.91 Status: Chronic (3) DM (diabetes mellitus) ICD Code: E11.9 Status: Chronic Assessment and Plan 60-year-old male with past medical history of paroxysmal atrial fibrillation, hypertension, stage III a non-Hodgkin's lymphoma status post a chemotherapy last year. He came to the hospital with altered mental status, facial droop. 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 Non verbal. Continue Keppra. Palliative care following. PT/OT signed off. Chronic respiratory failure: Secondary to CVA, Status post tracheostomy. Continue pulmonary toilet and neb treatments as needed. Continue bronchodilators Xopenex, trach care, Levsin prn, suctioning. On 28% Os 07/05. A-fib: Continue rate control, Cardizem and metoprolol with holding parameters. Echocardiogram completed in November shows preserved EF. Coumadin discontinued secondary to bleeding. Continue with ASA and prophylactic heparin dose. If persistently without any bleeding, could consider restarting Coumadin. CBC stable. Heart rate stable 07/05. Continue to monitor. History of Non-Hodgkin lymphoma: s/p brain biopsy on December 13, by Neurosurgery, Dr. Marin. Pathology consistent with acute infarct without evidence of lymphoma. Oncology signed off with no active oncology issues. DM (diabetes mellitus): HgbA1c 7%. Continue Levemir 35u daily. Continue sliding scale coverage. Monitor accuchecks and adjust the regimen as needed. Decubitus ulcer stage IV: Continue Rocephin indefinitely (on lactinex) per ID until OM is ruled out with bone biopsy and watch for further bleeding (off warfarin due to bleeding which appears to have resolved). Continue dressing changes twice daily per wound care recommendations. Continue pressure relief measures, mattress, Turning and positioning. Patient's family declined a diverting colostomy. Continue wound care. Wound is growing Klebsiella. Continue ceftriaxone. Per ID on 07/05, continue antibiotics for however long pt is here and then possibly could switch to PO upon discharge. - s/p Wide excision of sacral skin wound, biopsy of the cavity lining and debridement on 07/22/2016. GI/Nutrition: Continue Nepro at 55 cc/hr per dietitian recommendations. Free water flushes. Potassium supplement. Tolerating tube feeds 07/05. DVT px - SCDs Overall our plan would be to continue current care. If there is no further surgical intervention planned and after checking with Dr. Yoder, patient can be sent to [facility] since there is no safe discharge possibility in the foreseeable future. Problem Qualifiers (1) DM (diabetes mellitus): Qualified Code: E11.9 - Type 2 diabetes mellitus without complications Birdie Leal DO Jul 23, 2016 9:57 am
[2016-07-23] MEDS: cefTRIAXone INJ 2,000 MG in SODIUM CHLORIDE 0.9% INJ 100 ML IV SCH (11:57)
[2016-07-23] MEDS: LACTATED RINGER'S 1000 ML IV SCH (17:45)
[2016-07-23] MEDS: PARoxetine HCL SUSP 20 MG/10 ML UDC PEG SCH (18:26)
[2016-07-23] MEDS: INSULIN DETEMIR 100 UNITS/ML VIAL SQ SCH (23:08)
[2016-07-24] VITALS (9 sets, daily range): BP systolic 117–135; BP diastolic 62–73; PULSE 78–94; RESP 18–19; TEMP 95.6–98.3; O2SAT 95–100
[2016-07-24] MEDS: ACETAMINOPHEN/HYDROcodone 325 MG/5 MG TAB PEG SCH ×4 (01:07→18:00)
[2016-07-24] MEDS: FREE WATER TUBE SCH ×6 (04:00→20:00)
[2016-07-24] MEDS: HEPARIN SODIUM - SQ 10,000 UNITS/ML VIAL SQ SCH ×2 (06:00→13:42)
[2016-07-24] MEDS: ACETIC ACID 0.25% SOLN 1000 ML IRR BTL IRRIGATION SCH ×3 (06:00→22:00)
[2016-07-24] MEDS: levETIRAcetam 500 MG/5 ML UDC TUBE SCH (08:39)
[2016-07-24] MEDS: RANITIDINE HCL SYRUP 150 MG/10 ML UDC PO SCH (08:39)
[2016-07-24] MEDS: DILTIAZEM HCL 90 MG TAB PEG SCH ×4 (08:39→21:00)
[2016-07-24] MEDS: METOPROLOL TARTRATE 50 MG TAB PO SCH ×2 (08:39→21:00)
[2016-07-24] MEDS: POTASSIUM CHLORIDE 25 MEQ EFFERVESCENT TAB TUBE SCH (08:39)
[2016-07-24] MEDS: ASPIRIN 325 MG TAB TUBE SCH (08:39)
[2016-07-24] MEDS: LACTOBACILLUS ACIDOPHILUS TAB PEG SCH ×3 (08:39→18:00)
[2016-07-24] MEDS: BACITRACIN TOP OINT 15 GM TUBE TOP SCH ×2 (08:42→21:00)
[2016-07-24] MEDS: ARTIFICIAL TEARS OPTH OINT 3.5 APPLIC/3.5 GM TUBO EACH EYE SCH ×2 (08:42→21:00)
[2016-07-24] MEDS: NYSTATIN 100,000 U/GM PWD 15 GM BTL TOPICAL SCH ×2 (09:00→21:00)
[2016-07-24] MEDS: cefTRIAXone INJ 2,000 MG in SODIUM CHLORIDE 0.9% INJ 100 ML IV SCH (13:42)
--- NOTE | 2016-07-24 17:26 | HHI.PR ---
Subjective Remarks Laying in bed comfortably, no acute issue Objective Vitals Vital Signs Date Time Temp Pulse Resp B/P Pulse Ox O2 Delivery O2 Flow Rate FiO2 07/24/16 15:57 98 T-Piece 6.00 28 07/24/16 09:15 98 T-piece 28 07/24/16 00:05 97.5 94 19 122/72 100 07/23/16 20:50 98.6 80 19 111/67 98 07/23/16 20:04 96 T-piece 28 07/23/16 18:00 76 I/O 07/23/16 07/23/16 07/23/16 07/24/16 07/24/16 07/24/16 07:00 15:00 23:00 07:00 15:00 23:00 Intake Total 804 ml Output Total 900 ml 650 ml 700 ml Balance -96 ml -650 ml -700 ml Tube Feeding 404 ml Other 400 ml Output Urine Total 900 ml 650 ml 700 ml # Bowel Movements 2 1 1 Objective Remarks GENERAL:closed eyes , in bed.on T tube SKIN: Warm and dry. HEAD: Normocephalic. EYES: No scleral icterus. No injection or drainage. NECK: Supple, trachea midline. No JVD . CARDIOVASCULAR: Regular rate and rhythm without murmurs, gallops, or rubs. RESPIRATORY: Breath sounds equal bilaterally. No accessory muscle use. GASTROINTESTINAL: Abdomen soft, non-tender, nondistended. PEG tube in place. No surrounding erythema. MUSCULOSKELETAL: No cyanosis, or edema. Procedures 01/02/16 PEG placement 01/02/16 tracheostomy 07/22/2016 Wide excision of sacral skin wound, biopsy of the cavity lining and debridement. Date of Insertion: Jun 06, 2016 A/P Problem List: (1) CVA (cerebral vascular accident) ICD Code: I63.9 Status: Acute (2) A-fib ICD Code: I48.91 Status: Chronic (3) DM (diabetes mellitus) ICD Code: E11.9 Status: Chronic Assessment and Plan A/P: 60-year-old male with past medical history of paroxysmal atrial fibrillation, hypertension, stage III a non-Hodgkin's lymphoma status post a chemotherapy last year. He came to the hospital with altered mental status, facial droop. 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 Non verbal. Continue Keppra. Palliative care following. PT/OT signed off. Chronic respiratory failure: Secondary to CVA, Status post tracheostomy. Continue pulmonary toilet and neb treatments as needed. Continue bronchodilators Xopenex, trach care, Levsin prn, suctioning. On 28% Os 07/05. A-fib: Continue rate control, Cardizem and metoprolol with holding parameters. Echocardiogram completed in November shows preserved EF. Coumadin discontinued secondary to bleeding. Continue with ASA and prophylactic heparin dose. If persistently without any bleeding, could consider restarting Coumadin. CBC stable. Heart rate stable 07/05. Continue to monitor. History of Non-Hodgkin lymphoma: s/p brain biopsy on December 13, by Neurosurgery, Dr. Marin. Pathology consistent with acute infarct without evidence of lymphoma. Oncology signed off with no active oncology issues. DM (diabetes mellitus): HgbA1c 7%. Continue Levemir 35u daily. Continue sliding scale coverage. Monitor accuchecks and adjust the regimen as needed. Decubitus ulcer stage IV: Continue Rocephin indefinitely (on lactinex) per ID until OM is ruled out with bone biopsy and watch for further bleeding (off warfarin due to bleeding which appears to have resolved). Continue dressing changes twice daily per wound care recommendations. Continue pressure relief measures, mattress, Turning and positioning. Patient's family declined a diverting colostomy. Continue wound care. Wound is growing Klebsiella. Continue ceftriaxone. Per ID on 07/05, continue antibiotics for however long pt is here and then possibly could switch to PO upon discharge. GI/Nutrition: Continue Nepro at 55 cc/hr per dietitian recommendations. Free water flushes. Potassium supplement. Tolerating tube feeds 07/05. DVT px - SCDs. Problem Qualifiers (1) DM (diabetes mellitus): Qualified Code: E11.9 - Type 2 diabetes mellitus without complications Terrence Gonzalez MD Jul 24, 2016 17:26
[2016-07-24] MEDS: PARoxetine HCL SUSP 20 MG/10 ML UDC PEG SCH (19:00)
[2016-07-25] VITALS (9 sets, daily range): BP systolic 95–126; BP diastolic 61–74; PULSE 75–97; RESP 15–20; TEMP 95.6–98.7; O2SAT 90–100
[2016-07-25] MEDS: levETIRAcetam 500 MG/5 ML UDC TUBE SCH ×3 (02:38→21:51)
[2016-07-25] MEDS: INSULIN DETEMIR 100 UNITS/ML VIAL SQ SCH (02:38)
[2016-07-25] MEDS: ACETAMINOPHEN/HYDROcodone 325 MG/5 MG TAB PEG SCH ×4 (02:39→18:17)
[2016-07-25] MEDS: HEPARIN SODIUM - SQ 10,000 UNITS/ML VIAL SQ SCH ×4 (02:40→21:54)
[2016-07-25] MEDS: FREE WATER TUBE SCH ×6 (04:00→21:51)
[2016-07-25] MEDS: ACETIC ACID 0.25% SOLN 1000 ML IRR BTL IRRIGATION SCH ×3 (05:01→21:57)
[2016-07-25] MEDS: LACTOBACILLUS ACIDOPHILUS TAB PEG SCH ×3 (09:06→18:16)
[2016-07-25] MEDS: ASPIRIN 325 MG TAB TUBE SCH (09:06)
[2016-07-25] MEDS: DILTIAZEM HCL 90 MG TAB PEG SCH ×4 (09:06→21:52)
[2016-07-25] MEDS: METOPROLOL TARTRATE 50 MG TAB PO SCH ×2 (09:06→21:52)
[2016-07-25] MEDS: ARTIFICIAL TEARS OPTH OINT 3.5 APPLIC/3.5 GM TUBO EACH EYE SCH ×2 (09:06→21:53)
[2016-07-25] MEDS: NYSTATIN 100,000 U/GM PWD 15 GM BTL TOPICAL SCH ×2 (09:06→21:52)
[2016-07-25] MEDS: RANITIDINE HCL SYRUP 150 MG/10 ML UDC PO SCH (09:06)
[2016-07-25] MEDS: BACITRACIN TOP OINT 15 GM TUBE TOP SCH ×2 (09:06→21:53)
[2016-07-25] MEDS: POTASSIUM CHLORIDE 25 MEQ EFFERVESCENT TAB TUBE SCH (09:07)
[2016-07-25] MEDS: cefTRIAXone INJ 2,000 MG in SODIUM CHLORIDE 0.9% INJ 100 ML IV SCH (12:39)
--- NOTE | 2016-07-25 15:52 | HHI.PR ---
Subjective Remarks Laying in bed open eyes, nonverbal, mother at the bedside, no acute issue Objective Vitals Vital Signs Date Time Temp Pulse Resp B/P Pulse Ox O2 Delivery O2 Flow Rate FiO2 07/25/16 12:00 98.7 83 15 110/70 90 07/25/16 11:35 98 T-piece 6.00 28 07/25/16 11:35 98 T-piece 6.00 28 07/25/16 08:00 95.6 95 20 115/66 100 07/25/16 04:19 96.8 81 19 126/74 96 07/24/16 23:56 98.0 83 18 125/71 95 07/24/16 20:46 98.3 92 18 117/62 98 07/24/16 18:06 T-piece 6.00 28 07/24/16 18:00 84 07/24/16 15:57 98 T-Piece 6.00 28 I/O 07/24/16 07/24/16 07/24/16 07/25/16 07/25/16 07/25/16 06:59 14:59 22:59 06:59 14:59 22:59 Output Total 700 ml 1500 ml 800 ml 2.0 ml Balance -700 ml -1500 ml -800 ml -2.0 ml Output Urine Total 700 ml 1500 ml 800 ml Tube Feeding Residual Discard 2.0 ml # Bowel Movements 1 2 1 Objective Remarks - GENERAL:open eyes , in bed.on T tube NEURO: nonverbal Procedures 01/02/16 PEG placement 01/02/16 tracheostomy 07/22/2016 Wide excision of sacral skin wound, biopsy of the cavity lining and debridement. Date of Insertion: Jun 06, 2016 A/P Problem List: (1) CVA (cerebral vascular accident) ICD Code: I63.9 Status: Acute (2) A-fib ICD Code: I48.91 Status: Chronic (3) DM (diabetes mellitus) ICD Code: E11.9 Status: Chronic Assessment and Plan 07/25/16: No acute issue continue current care A/P: 60-year-old male with past medical history of paroxysmal atrial fibrillation, hypertension, stage III a non-Hodgkin's lymphoma status post a chemotherapy last year. He came to the hospital with altered mental status, facial droop. 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 Non verbal. Continue Keppra. Palliative care following. PT/OT signed off. Chronic respiratory failure: Secondary to CVA, Status post tracheostomy. Continue pulmonary toilet and neb treatments as needed. Continue bronchodilators Xopenex, trach care, Levsin prn, suctioning. On 28% Os 07/05. A-fib: Continue rate control, Cardizem and metoprolol with holding parameters. Echocardiogram completed in November shows preserved EF. Coumadin discontinued secondary to bleeding. Continue with ASA and prophylactic heparin dose. If persistently without any bleeding, could consider restarting Coumadin. CBC stable. Heart rate stable 07/05. Continue to monitor. History of Non-Hodgkin lymphoma: s/p brain biopsy on December 13, by Neurosurgery, Dr. Marin. Pathology consistent with acute infarct without evidence of lymphoma. Oncology signed off with no active oncology issues. DM (diabetes mellitus): HgbA1c 7%. Continue Levemir 35u daily. Continue sliding scale coverage. Monitor accuchecks and adjust the regimen as needed. Decubitus ulcer stage IV: Continue Rocephin indefinitely (on lactinex) per ID until OM is ruled out with bone biopsy and watch for further bleeding (off warfarin due to bleeding which appears to have resolved). Continue dressing changes twice daily per wound care recommendations. Continue pressure relief measures, mattress, Turning and positioning. Patient's family declined a diverting colostomy. Continue wound care. Wound is growing Klebsiella. Continue ceftriaxone. Per ID on 07/05, continue antibiotics for however long pt is here and then possibly could switch to PO upon discharge. GI/Nutrition: Continue Nepro at 55 cc/hr per dietitian recommendations. Free water flushes. Potassium supplement. Tolerating tube feeds 07/05. DVT px - SCDs. Problem Qualifiers (1) DM (diabetes mellitus): Qualified Code: E11.9 - Type 2 diabetes mellitus without complications Terrence Gonzalez MD Jul 25, 2016 15:52 Problem Qualifiers (1) DM (diabetes mellitus): Qualified Code: E11.9 - Type 2 diabetes mellitus without complications Terrence Gonzalez MD Jul 25, 2016 15:52
[2016-07-25] MEDS: PARoxetine HCL SUSP 20 MG/10 ML UDC PEG SCH (18:17)
[2016-07-26] VITALS (11 sets, daily range): BP systolic 101–137; BP diastolic 60–74; PULSE 72–93; RESP 18–20; TEMP 96.8–98.5; O2SAT 96–100
[2016-07-26] MEDS: ACETAMINOPHEN/HYDROcodone 325 MG/5 MG TAB PEG SCH ×4 (01:19→20:00)
[2016-07-26] MEDS: FREE WATER TUBE SCH ×6 (01:19→20:00)
[2016-07-26] MEDS: INSULIN DETEMIR 100 UNITS/ML VIAL SQ SCH ×2 (01:19→21:35)
[2016-07-26] MEDS: ACETIC ACID 0.25% SOLN 1000 ML IRR BTL IRRIGATION SCH ×3 (05:31→21:36)
[2016-07-26] MEDS: HEPARIN SODIUM - SQ 10,000 UNITS/ML VIAL SQ SCH ×3 (05:31→21:34)
[2016-07-26] MEDS: ARTIFICIAL TEARS OPTH OINT 3.5 APPLIC/3.5 GM TUBO EACH EYE SCH ×2 (09:00→21:36)
[2016-07-26] MEDS: BACITRACIN TOP OINT 15 GM TUBE TOP SCH ×2 (09:00→21:00)
[2016-07-26] MEDS: ASPIRIN 325 MG TAB TUBE SCH (09:45)
[2016-07-26] MEDS: METOPROLOL TARTRATE 50 MG TAB PO SCH ×2 (09:45→21:33)
[2016-07-26] MEDS: LACTOBACILLUS ACIDOPHILUS TAB PEG SCH ×3 (09:45→17:23)
[2016-07-26] MEDS: RANITIDINE HCL SYRUP 150 MG/10 ML UDC PO SCH (09:45)
[2016-07-26] MEDS: DILTIAZEM HCL 90 MG TAB PEG SCH ×4 (09:45→21:34)
[2016-07-26] MEDS: POTASSIUM CHLORIDE 25 MEQ EFFERVESCENT TAB TUBE SCH (09:45)
[2016-07-26] MEDS: levETIRAcetam 500 MG/5 ML UDC TUBE SCH ×2 (09:45→21:34)
[2016-07-26] MEDS: NYSTATIN 100,000 U/GM PWD 15 GM BTL TOPICAL SCH ×2 (09:46→21:40)
[2016-07-26] MEDS: cefTRIAXone INJ 2,000 MG in SODIUM CHLORIDE 0.9% INJ 100 ML IV SCH (13:09)
--- NOTE | 2016-07-26 14:06 | HHI.PR ---
Subjective Remarks laying in bed , family at bedside , in nad , open eyes Objective Vitals Vital Signs Date Time Temp Pulse Resp B/P Pulse Ox O2 Delivery O2 Flow Rate FiO2 07/26/16 12:00 97.5 74 20 101/60 98 07/26/16 08:00 96 T-piece 5.00 28 07/26/16 08:00 96 T-piece 5.00 28 07/26/16 07:59 96.8 72 20 129/73 100 07/26/16 04:00 97.0 86 18 137/74 97 07/26/16 01:28 99 T-piece 6.00 28 07/26/16 00:00 97.4 93 20 108/64 98 07/25/16 21:50 98 Blow By 6.00 28 T-Piece Humidified 07/25/16 21:50 80 124/63 07/25/16 20:00 97.2 75 18 105/63 97 07/25/16 19:02 81 I/O 07/25/16 07/25/16 07/25/16 07/26/16 07/26/16 07/26/16 07:00 15:00 23:00 07:00 15:00 23:00 Output Total 800 ml 2.0 ml 850 ml 7003 ml Balance -800 ml -2.0 ml -850 ml -7003 ml Output Urine Total 800 ml 850 ml 7003 ml Tube Feeding Residual Discard 2.0 ml # Bowel Movements 1 4 2 Objective Remarks - GENERAL:open eyes , in bed.on T tube NEURO: nonverbal Procedures 01/02/16 PEG placement 01/02/16 tracheostomy 07/22/2016 Wide excision of sacral skin wound, biopsy of the cavity lining and debridement. Date of Insertion: Jun 06, 2016 A/P Problem List: (1) CVA (cerebral vascular accident) ICD Code: I63.9 Status: Acute (2) A-fib ICD Code: I48.91 Status: Chronic (3) DM (diabetes mellitus) ICD Code: E11.9 Status: Chronic Assessment and Plan 07/25/16: No acute issue continue current care 07/26/16: cont current care A/P: 60-year-old male with past medical history of paroxysmal atrial fibrillation, hypertension, stage III a non-Hodgkin's lymphoma status post a chemotherapy last year. He came to the hospital with altered mental status, facial droop. 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 Non verbal. Continue Keppra. Palliative care following. PT/OT signed off. Chronic respiratory failure: Secondary to CVA, Status post tracheostomy. Continue pulmonary toilet and neb treatments as needed. Continue bronchodilators Xopenex, trach care, Levsin prn, suctioning. On 28% Os 07/05. A-fib: Continue rate control, Cardizem and metoprolol with holding parameters. Echocardiogram completed in November shows preserved EF. Coumadin discontinued secondary to bleeding. Continue with ASA and prophylactic heparin dose. If persistently without any bleeding, could consider restarting Coumadin. CBC stable. Heart rate stable 07/05. Continue to monitor. History of Non-Hodgkin lymphoma: s/p brain biopsy on December 13, by Neurosurgery, Dr. Marin. Pathology consistent with acute infarct without evidence of lymphoma. Oncology signed off with no active oncology issues. DM (diabetes mellitus): HgbA1c 7%. Continue Levemir 35u daily. Continue sliding scale coverage. Monitor accuchecks and adjust the regimen as needed. Decubitus ulcer stage IV: Continue Rocephin indefinitely (on lactinex) per ID until OM is ruled out with bone biopsy and watch for further bleeding (off warfarin due to bleeding which appears to have resolved). Continue dressing changes twice daily per wound care recommendations. Continue pressure relief measures, mattress, Turning and positioning. Patient's family declined a diverting colostomy. Continue wound care. Wound is growing Klebsiella. Continue ceftriaxone. Per ID on 07/05, continue antibiotics for however long pt is here and then possibly could switch to PO upon discharge. GI/Nutrition: Continue Nepro at 55 cc/hr per dietitian recommendations. Free water flushes. Potassium supplement. Tolerating tube feeds 07/05. DVT px - SCDs. Problem Qualifiers (1) DM (diabetes mellitus): Qualified Code: E11.9 - Type 2 diabetes mellitus without complications Terrence Gonzalez MD Jul 26, 2016 14:06
[2016-07-26] MEDS: PARoxetine HCL SUSP 20 MG/10 ML UDC PEG SCH (19:06)
[2016-07-27] VITALS (9 sets, daily range): BP systolic 103–131; BP diastolic 60–72; PULSE 70–83; RESP 18–20; TEMP 97.2–98.5; O2SAT 95–98
[2016-07-27] MEDS: ACETAMINOPHEN/HYDROcodone 325 MG/5 MG TAB PEG SCH ×5 (01:18→23:53)
[2016-07-27] MEDS: FREE WATER TUBE SCH ×7 (04:00→23:53)
[2016-07-27] MEDS: ACETIC ACID 0.25% SOLN 1000 ML IRR BTL IRRIGATION SCH ×3 (05:08→22:00)
[2016-07-27] MEDS: HEPARIN SODIUM - SQ 10,000 UNITS/ML VIAL SQ SCH ×3 (05:08→22:00)
[2016-07-27] MEDS: METOPROLOL TARTRATE 50 MG TAB PO SCH ×3 (08:38→21:00)
[2016-07-27] MEDS: DILTIAZEM HCL 90 MG TAB PEG SCH ×5 (08:38→21:00)
[2016-07-27] MEDS: RANITIDINE HCL SYRUP 150 MG/10 ML UDC PO SCH (08:50)
[2016-07-27] MEDS: POTASSIUM CHLORIDE 25 MEQ EFFERVESCENT TAB TUBE SCH (08:50)
[2016-07-27] MEDS: HYOSCYAMINE 0.125 MG TAB G-TUBE PRN (08:51)
[2016-07-27] MEDS: ARTIFICIAL TEARS OPTH OINT 3.5 APPLIC/3.5 GM TUBO EACH EYE SCH ×2 (08:51→21:00)
[2016-07-27] MEDS: ASPIRIN 325 MG TAB TUBE SCH (08:51)
[2016-07-27] MEDS: BACITRACIN TOP OINT 15 GM TUBE TOP SCH ×2 (08:51→21:00)
[2016-07-27] MEDS: NYSTATIN 100,000 U/GM PWD 15 GM BTL TOPICAL SCH ×2 (08:51→21:00)
[2016-07-27] MEDS: LACTOBACILLUS ACIDOPHILUS TAB PEG SCH ×3 (08:52→16:46)
[2016-07-27] MEDS: levETIRAcetam 500 MG/5 ML UDC TUBE SCH ×2 (08:52→21:00)
--- NOTE | 2016-07-27 11:12 | HHI.PR ---
Subjective Remarks Laying in bed with eyes open Family at the bedside No acute issue Objective Vitals Vital Signs Date Time Temp Pulse Resp B/P Pulse Ox O2 Delivery O2 Flow Rate FiO2 07/27/16 08:55 79 115/72 07/27/16 08:00 97.8 70 18 110/68 98 07/27/16 04:35 97.2 74 18 107/69 98 07/27/16 00:06 97.7 75 20 115/70 97 07/26/16 20:05 98.5 74 18 111/67 97 07/26/16 20:00 97 Blow By 6.00 28 T-Piece 07/26/16 20:00 75 07/26/16 17:45 99 T-piece 6.00 28 07/26/16 16:00 97.6 76 20 119/69 99 07/26/16 12:00 97.5 74 20 101/60 98 I/O 07/26/16 07/26/16 07/26/16 07/27/16 07/27/16 07/27/16 07:00 15:00 23:00 07:00 15:00 23:00 Intake Total 987 ml 725 ml Output Total 7003 ml 550 ml 300 ml 850 ml Balance -7003 ml -550 ml 687 ml -125 ml Tube Feeding 787 ml 325 ml Other 200 ml 400 ml Output Urine Total 7003 ml 550 ml 300 ml 850 ml # Bowel Movements 2 0 1 Objective Remarks - GENERAL:open eyes , in bed.on T tube NEURO: nonverbal Procedures 01/02/16 PEG placement 01/02/16 tracheostomy 07/22/2016 Wide excision of sacral skin wound, biopsy of the cavity lining and debridement. Date of Insertion: Jun 06, 2016 A/P Problem List: (1) CVA (cerebral vascular accident) ICD Code: I63.9 Status: Acute (2) A-fib ICD Code: I48.91 Status: Chronic (3) DM (diabetes mellitus) ICD Code: E11.9 Status: Chronic Assessment and Plan 07/25/16: No acute issue continue current care 07/26/16: cont current care 07/27/16: No acute issues overnight, continue current management A/P: 60-year-old male with past medical history of paroxysmal atrial fibrillation, hypertension, stage III a non-Hodgkin's lymphoma status post a chemotherapy last year. He came to the hospital with altered mental status, facial droop. 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 Non verbal. Continue Keppra. Palliative care following. PT/OT signed off. Chronic respiratory failure: Secondary to CVA, Status post tracheostomy. Continue pulmonary toilet and neb treatments as needed. Continue bronchodilators Xopenex, trach care, Levsin prn, suctioning. On 28% Os 07/05. A-fib: Continue rate control, Cardizem and metoprolol with holding parameters. Echocardiogram completed in November shows preserved EF. Coumadin discontinued secondary to bleeding. Continue with ASA and prophylactic heparin dose. If persistently without any bleeding, could consider restarting Coumadin. CBC stable. Heart rate stable 07/05. Continue to monitor. History of Non-Hodgkin lymphoma: s/p brain biopsy on December 13, by Neurosurgery, Dr. Marin. Pathology consistent with acute infarct without evidence of lymphoma. Oncology signed off with no active oncology issues. DM (diabetes mellitus): HgbA1c 7%. Continue Levemir 35u daily. Continue sliding scale coverage. Monitor accuchecks and adjust the regimen as needed. Decubitus ulcer stage IV: Continue Rocephin indefinitely (on lactinex) per ID until OM is ruled out with bone biopsy and watch for further bleeding (off warfarin due to bleeding which appears to have resolved). Continue dressing changes twice daily per wound care recommendations. Continue pressure relief measures, mattress, Turning and positioning. Patient's family declined a diverting colostomy. Continue wound care. Wound is growing Klebsiella. Continue ceftriaxone. Per ID on 07/05, continue antibiotics for however long pt is here and then possibly could switch to PO upon discharge. GI/Nutrition: Continue Nepro at 55 cc/hr per dietitian recommendations. Free water flushes. Potassium supplement. Tolerating tube feeds 07/05. DVT px - SCDs. Problem Qualifiers (1) DM (diabetes mellitus): Qualified Code: E11.9 - Type 2 diabetes mellitus without complications Terrence Gonzalez MD Jul 27, 2016 11:12
[2016-07-27] MEDS: cefTRIAXone INJ 2,000 MG in SODIUM CHLORIDE 0.9% INJ 100 ML IV SCH (12:15)
[2016-07-27] MEDS: PARoxetine HCL SUSP 20 MG/10 ML UDC PEG SCH (18:55)
[2016-07-27] MEDS: INSULIN DETEMIR 100 UNITS/ML VIAL SQ SCH (21:00)
[2016-07-28] VITALS (15 sets, daily range): BP systolic 114–142; BP diastolic 67–92; PULSE 71–93; RESP 17–20; TEMP 96.6–99.7; O2SAT 35–100
[2016-07-28] MEDS: FREE WATER TUBE SCH ×5 (05:56→17:52)
[2016-07-28] MEDS: ACETAMINOPHEN/HYDROcodone 325 MG/5 MG TAB PEG SCH ×3 (05:57→17:51)
[2016-07-28] MEDS: HEPARIN SODIUM - SQ 10,000 UNITS/ML VIAL SQ SCH ×2 (05:58→14:33)
[2016-07-28] MEDS: ACETIC ACID 0.25% SOLN 1000 ML IRR BTL IRRIGATION SCH ×2 (06:08→14:33)
[2016-07-28] MEDS: levETIRAcetam 500 MG/5 ML UDC TUBE SCH ×2 (08:54→21:00)
[2016-07-28] MEDS: POTASSIUM CHLORIDE 25 MEQ EFFERVESCENT TAB TUBE SCH (08:54)
[2016-07-28] MEDS: RANITIDINE HCL SYRUP 150 MG/10 ML UDC PO SCH (08:54)
[2016-07-28] MEDS: LACTOBACILLUS ACIDOPHILUS TAB PEG SCH ×3 (08:54→17:51)
[2016-07-28] MEDS: METOPROLOL TARTRATE 50 MG TAB PO SCH ×2 (08:54→21:00)
[2016-07-28] MEDS: DILTIAZEM HCL 90 MG TAB PEG SCH ×4 (08:54→21:00)
[2016-07-28] MEDS: ASPIRIN 325 MG TAB TUBE SCH (08:54)
[2016-07-28] MEDS: NYSTATIN 100,000 U/GM PWD 15 GM BTL TOPICAL SCH (08:55)
[2016-07-28] MEDS: ARTIFICIAL TEARS OPTH OINT 3.5 APPLIC/3.5 GM TUBO EACH EYE SCH (08:56)
[2016-07-28] MEDS: BACITRACIN TOP OINT 15 GM TUBE TOP SCH (08:56)
--- NOTE | 2016-07-28 11:57 | HHI.PR ---
Subjective Remarks Laying in bed open eyes Mother at the bedside Discussed with the nurse, we have a leak in the PEG tube, will consult IR for placement tomorrow, will place on D5 half-normal saline with a lower rate of 40. Also discussed with Dr. brown regarding she is on Rocephin since May, he recommended continuing Also discussed with the respiratory, patient O2 demand increased to 35%, he is saturation still in the 80s, he has no thickened increased secretions that require more frequent suctioning and toileting Objective Vitals Vital Signs Date Time Temp Pulse Resp B/P Pulse Ox O2 Delivery O2 Flow Rate FiO2 07/28/16 08:00 97.2 89 17 136/81 93 07/28/16 07:58 95 T-piece 28 07/28/16 07:58 T-piece 28 07/28/16 07:00 89 07/28/16 03:55 97.3 93 18 142/92 97 07/28/16 00:18 97.2 93 18 118/72 96 07/27/16 19:57 97.8 75 18 107/60 95 07/27/16 16:00 98.5 83 18 131/72 98 07/27/16 12:00 98.2 79 18 103/68 97 I/O 07/27/16 07/27/16 07/27/16 07/28/16 07/28/16 07/28/16 07:00 15:00 23:00 07:00 15:00 23:00 Intake Total 725 ml Output Total 850 ml 550 ml 350 ml Balance -125 ml -550 ml -350 ml Tube Feeding 325 ml Other 400 ml Output Urine Total 850 ml 550 ml 350 ml # Bowel Movements 1 3 1 Objective Remarks Gen.: 60 years old bedridden patient, eyes open, CARDIOVASCULAR: RRR without murmurs.Peripheral pulses symmetric. Trace edema upper extremities. NECK/CHEST: Tracheostomy midline, . On T piece, RESPIRATORY: coarse air bilaterally. Breath sounds equal bilaterally. GASTROINTESTINAL: Abdomen soft, no apparent tenderness, nondistended. No palpable masses. Bowel sounds normoactive. PEG in place MUSCULOSKELETAL: Extremities without clubbing, cyanosis. Trace edema upper extremities No joint effusion noted. No mottling or clubbing.+ Muscle atrophy to all 4 extremities. NEUROLOGICAL: Eyes open, does not track, doesn't follow commands. No movement of all 4 extremities. Procedures 01/02/16 PEG placement 01/02/16 tracheostomy 07/22/2016 Wide excision of sacral skin wound, biopsy of the cavity lining and debridement. Date of Insertion: Jun 06, 2016 A/P Problem List: (1) CVA (cerebral vascular accident) ICD Code: I63.9 Status: Acute (2) A-fib ICD Code: I48.91 Status: Chronic (3) DM (diabetes mellitus) ICD Code: E11.9 Status: Chronic Assessment and Plan 07/25/16: No acute issue continue current care 07/26/16: cont current care 07/27/16: No acute issues overnight, continue current management 07/28/16:Discussed with the nurse, we have a leak in the PEG tube, will consult IR for placement tomorrow, will place on D5 half-normal saline with a lower rate of 40. Also discussed with Dr. brown regarding she is on Rocephin since May, he recommended continuing. D/W respiratory, patient with significant increase secretions, with O2 sat in the 80s, no fever, will do chest x-ray and check ABG, check CBC for any leukocytosis, and monitor, patient is on alternative code connect to ventilator if needed, we will follow Addendum: Received a call for ABG results showing pH of 7.45, PO2 of 54, PCO2 of 35, is on 40% oxygen, respiratory increased oxygen and repeat ABG in 1 hours , awaiting chest x-ray and CBC A/P: 60-year-old male with past medical history of paroxysmal atrial fibrillation, hypertension, stage III a non-Hodgkin's lymphoma status post a chemotherapy last year. He came to the hospital with altered mental status, facial droop. 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 Non verbal. Continue Keppra. Palliative care following. PT/OT signed off. Chronic respiratory failure: Secondary to CVA, Status post tracheostomy. Continue pulmonary toilet and neb treatments as needed. Continue bronchodilators Xopenex, trach care, Levsin prn, suctioning. On 28% Os 07/05. A-fib: Continue rate control, Cardizem and metoprolol with holding parameters. Echocardiogram completed in November shows preserved EF. Coumadin discontinued secondary to bleeding. Continue with ASA and prophylactic heparin dose. If persistently without any bleeding, could consider restarting Coumadin. CBC stable. Heart rate stable 07/05. Continue to monitor. History of Non-Hodgkin lymphoma: s/p brain biopsy on December 13, by Neurosurgery, Dr. Marin. Pathology consistent with acute infarct without evidence of lymphoma. Oncology signed off with no active oncology issues. DM (diabetes mellitus): HgbA1c 7%. Continue Levemir 35u daily. Continue sliding scale coverage. Monitor accuchecks and adjust the regimen as needed. Decubitus ulcer stage IV: Continue Rocephin indefinitely (on lactinex) per ID until OM is ruled out with bone biopsy and watch for further bleeding (off warfarin due to bleeding which appears to have resolved). Continue dressing changes twice daily per wound care recommendations. Continue pressure relief measures, mattress, Turning and positioning. Patient's family declined a diverting colostomy. Continue wound care. Wound is growing Klebsiella. Continue ceftriaxone. Per ID on 07/05, continue antibiotics for however long pt is here and then possibly could switch to PO upon discharge. Patient is on Rocephin since June 10 by ID for Klebsiella infection, discussed with Dr. Liu on 07/28/16, he would like to continue on Rocephin GI/Nutrition: Continue Nepro at 55 cc/hr per dietitian recommendations. Free water flushes. Potassium supplement. Tolerating tube feeds 07/05. DVT px - SCDs. Problem Qualifiers (1) DM (diabetes mellitus): Qualified Code: E11.9 - Type 2 diabetes mellitus without complications Terrence Gonzalez MD Jul 28, 2016 11:57
[2016-07-28] MEDS: cefTRIAXone INJ 2,000 MG in SODIUM CHLORIDE 0.9% INJ 100 ML IV SCH (12:19)
[2016-07-28 12:40] LABS: BLOOD GAS BASE EXCESS 3.9 mmol/L (-2-2); BLOOD GAS CARBOXYHEMOGLOBIN 1.8 % (0-4); BLOOD GAS HCO3 27 mmol/L (22-26); BLOOD GAS METHEMOGLOBIN 0.6 % (0-2); BLOOD GAS O2 HGB SATURATION 85 % (90-100); BLOOD GAS OXYGEN CONTENT 11.8 Vol % (12.0-20.0); BLOOD GAS PCO2 38 mmHg (38-42); BLOOD GAS PO2 54 mmHg (61-120); BLOOD GAS TOTAL HGB 9.8 G/DL (12.0-16.0); TEMP CORR TO 98.6
[2016-07-28 12:46] LABS: CRITICAL VALUE YES; OXYGEN DEVICE T-PIECE
[2016-07-28 12:47] LABS: DRAW SITE RT RADIAL; FIO2 40 %; LITER FLOW 6 L/M; NUMBER OF ARTERIAL PUNCTURES 1; STAT YES; ULNAR PULSE PRESENT
--- NOTE | 2016-07-28 14:25 | RADRPT ---
EXAM DATE/TIME: 07/28/2016 13:18 [facility] COMPARISON: CHEST SINGLE AP, July 19, 2016, 18:47. INDICATIONS : Shortness of breath. MEDICAL HISTORY : Hypertension. Diabetes mellitus type II. Lymphoma. SURGICAL HISTORY : None. ENCOUNTER: Subsequent ACUITY: 4 - 6 days PAIN SCORE: Non-responsive. LOCATION: Bilateral chest FINDINGS: Tracheostomy tube is in good position. Right lung is clear. Very minimal parenchymal changes are pr esent in the left base. Heart and pulmonary vascularity are normal. Portion of bony skeleton visual ized is unremarkable. CONCLUSION: Slight increase in parenchymal opacity left base. Octavio Ramírez MD FACR on July 28, 2016 at 14:21 Board Certified Radiologist. This report was verified electronically.
[2016-07-28 15:08] LABS: BLOOD GAS BASE EXCESS 3.9 mmol/L (-2-2); BLOOD GAS CARBOXYHEMOGLOBIN 1.6 % (0-4); BLOOD GAS HCO3 28 mmol/L (22-26); BLOOD GAS METHEMOGLOBIN 0.5 % (0-2); BLOOD GAS O2 HGB SATURATION 97 % (90-100); BLOOD GAS OXYGEN CONTENT 13.8 Vol % (12.0-20.0); BLOOD GAS PCO2 40 mmHg (38-42); BLOOD GAS PO2 117 mmHg (61-120); CRITICAL VALUE NO; DRAW SITE RT RADIAL; FIO2 98 %; NUMBER OF ARTERIAL PUNCTURES 2; OXYGEN DEVICE JETNEB TPIECE; STAT NO; TEMP CORR TO 98.6; ULNAR PULSE PRESENT
[2016-07-28 15:34] LABS: AUTOMATED NEUTROPHIL # 3.6 TH/MM3 (1.8-7.7); BASOPHIL % 0.2 % (0.0-2.0); EOSINOPHIL # 0.2 TH/MM3 (0-0.4); EOSINOPHIL % 3.2 % (0.0-4.0); LYMPH % 20.9 % (9.0-44.0); LYMPHOCYTE # 1.1 TH/MM3 (1.0-4.8); MEAN CELL VOLUME 73.3 FL (80.0-100.0); MEAN CORPUSCULAR HEMOGLOBIN 24.1 PG (27.0-34.0); MEAN CORPUSCULAR HGB CONC 32.9 % (32.0-36.0); MONO % 7.4 % (0.0-8.0); NEUT % 68.3 % (16.0-70.0); PLATELET COUNT 198 TH/MM3 (150-450); RED BLOOD COUNT 4.09 MIL/MM3 (4.50-5.90); RED CELL DISTRIBUTION WIDTH 19.5 % (11.6-17.2); WHITE BLOOD COUNT 5.3 TH/MM3 (4.0-11.0)
[2016-07-28 15:39] LABS: HEMO FLAGS AUTO DIFF
[2016-07-28 15:41] LABS: OVALOCYTES 1+ (NORMAL)
[2016-07-28 15:42] LABS: PLATELET ESTIMATE SMEAR NORMAL (NORMAL); PLATELET MORPHOLOGY NORMAL (NORMAL); SCAN/DIFF AUTO DIFF CONFIRMED
--- NOTE | 2016-07-28 17:50 | PD.CONS ---
[facility] Service Critical Care Medicine Consult Requested By Dr. Gonzalez Reason for Consult hypoxia Primary Care Physician Non-Staff History of Present Illness The patient cannot participate in providing a history. The does not speak [place] well. The history is taken from the bedside RN and chart review. In brief, this is a 60yM with h/o non-Hodgkin's lymphoma and with multiple CVAs , including brainstem CVA for which he is trach dependent. He has been in chronic respiratory failure for months, requiring supplemental oxygen. Today, he had an increase in his secretions, and a subsequent increase in fio2 by T- piece from 28% to 100%. Reportedly he had spo2 of 85% on 28% fio2. He was not more tachypneic than usual. His wbc is normal. He has remained afebrile. In discussions with his bedside RN and weigher and charger, he has not had a clinical change recently. His cxr shows persistence of left-lower lobe consolidation/atalectasis , though not markedly worse. He does have thick, white secretions, although per respiratory therapy, this is not significantly worse than prior, and is near baseline for him. Review of Systems ROS Limitations: Clinical Condition Past Family Social History Allergies: Coded Allergies: *MDRO Multi-Drug Resistant Organism (Verified Adverse Reaction, Unknown, ) MRSA (sputum) - 03/08/16, 04/03/2016 Past Medical History Paroxysmal A fib HTN DM II Non Hodgkin Lymphoma Past Surgical History Brain Bx 12/17/15 L arm surgery Trach and PEG 01/01 Reported Medications Prior to hospitalization: Omeprazole (Omeprazole) 20 Mg Tab 20 Mg PO DAILY Phenergan (Promethazine HCl) 25 Mg Tab 12.5 Mg PO Q8HR PRN Decadron 2 mg (Dexamethasone) 2 Mg Tab 1 Tab PO DIRECTED Decrease dose as directed until finish all the meds 2 mg TID for 4 days 2 mg BID for 4 days 2 mg daily for 4 days 2 mg every other days for 8 days Lorazepam 0.5 Mg Tab 0.5 Mg PO Q8HR PRN Habitrol 21 mg/24 Hr Patch (Nicotine) 1 Patch Patch 1 Patch TD DAILY 30 Days Keppra (Levetiracetam) 250 Mg Tab 750 Mg PO BID 30 Days Glucophage 500 mg (Metformin HCl) 500 Mg Tab 500 Mg PO DAILY Lipitor 40 Mg Tab (Atorvastatin Calcium) 40 Mg Tab 40 Mg PO HS Phenergan 25 mg (Promethazine HCl) 25 Mg Tab 12.5 Mg PO Q8HR PRN Vasotec (Enalapril Maleate) 20 Mg Tab 20 Mg PO DAILY Betapace (Sotalol Hcl) 80 Mg Tab 0.5 Tab PO HS Active Ordered Medications See MAR Family History reviewed in the chart and found to be noncontributory to this acute illness Social History Heavy smoker since the age of 14 years No ETOH or drug use but Ex- is present and very involved They are [place]og[place], speak Kyrgyz but he understands Thai 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 Formerly independent in functional capacity Full code, no advanced directives prior to this hospitalization Physical Exam Vital Signs Vital Signs Date Time Temp Pulse Resp B/P Pulse Ox O2 Delivery O2 Flow Rate FiO2 07/28/16 16:00 97.8 71 19 125/90 95 07/28/16 12:40 100 T-piece 100 07/28/16 12:20 91 T-piece 40 07/28/16 12:15 35 T-piece 88 07/28/16 12:00 96.6 72 18 114/67 97 07/28/16 08:00 98 Blow By 6.00 28 T-Piece 07/28/16 08:00 97.2 89 17 136/81 93 07/28/16 07:58 95 T-piece 28 07/28/16 07:58 T-piece 28 07/28/16 07:00 89 07/28/16 03:55 97.3 93 18 142/92 97 07/28/16 00:18 97.2 93 18 118/72 96 07/27/16 19:57 97.8 75 18 107/60 95 Physical Exam GENERAL: Elderly male lying in bed and breathing spontaneously via tracheostomy. unlabored. SKIN: Warm and dry, well perfused HEENT: Normocephalic. No scleral icterus. Right facial droop NECK: Trachea midline. No JVD. Tracheostomy site intact CARDIOVASCULAR: Regular rate and rhythm without any appreciable murmurs RESPIRATORY: Coarse breath sounds anteriorly with good air entry bilaterally. not tachypneic. unlabored. equal chest rise. spo2 100% on fio2 100%. I turned his fio2 down to 28% and monitored the patient for 10 minutes at his bedside, and his spo2 remained 99%. I suctioned a moderate amount of white secretions. GASTROINTESTINAL: Abdomen soft, nondistended. Bowel sounds present. PEG site intact with a small hole in his PEG tube. MUSCULOSKELETAL: Palpable pulses with warm periphery. No edema NEURO: + spontaneous eye openings Laboratory Laboratory Tests Test 07/28/16 07/28/16 12:24 14:50 Blood Gas Puncture Site RT RADIAL RT RADIAL Blood Gas Patient Temperature 98.6 98.6 Blood Gas HCO3 27 28 Blood Gas Base Excess 3.9 3.9 Blood Gas Oxygen Saturation 85 97 Arterial Blood pH 7.47 7.45 Arterial Blood Partial 38 40 Pressure CO2 Arterial Blood Partial 54 117 Pressure O2 Arterial Blood Oxygen Content 11.8 13.8 Arterial Blood 1.8 1.6 Carboxyhemoglobin Arterial Blood Methemoglobin 0.6 0.5 Blood Gas Hemoglobin 9.8 10.0 Oxygen Delivery Device T-PIECE JETNEB TPIECE Blood Gas Liter Flow 6 Blood Gas Inspired Oxygen 40 98 White Blood Count 5.3 Red Blood Count 4.09 Hemoglobin 9.9 Hematocrit 30.0 Mean Corpuscular Volume 73.3 Mean Corpuscular Hemoglobin 24.1 Mean Corpuscular Hemoglobin 32.9 Concent Red Cell Distribution Width 19.5 Platelet Count 198 Mean Platelet Volume 8.6 Neutrophils (%) (Auto) 68.3 Lymphocytes (%) (Auto) 20.9 Monocytes (%) (Auto) 7.4 Eosinophils (%) (Auto) 3.2 Basophils (%) (Auto) 0.2 Neutrophils # (Auto) 3.6 Lymphocytes # (Auto) 1.1 Monocytes # (Auto) 0.4 Eosinophils # (Auto) 0.2 Basophils # (Auto) 0.0 CBC Comment AUTO DIFF Differential Comment AUTO DIFF CONFIRMED Platelet Estimate NORMAL Platelet Morphology Comment NORMAL Ovalocytes 1+ Result Diagram: 07/28/16 1450 Assessment and Plan Assessment and Plan Assessment: 60yM with history of ischemic strokes and non-hodkins lymphoma and chronic hypoxia requiring supplemental o2 and tracheostomy dependence. I have been consulted for evaluation of hypoxia. From my standpoint, the patient has not had a significant clinical change. With aggressive suctioning, his spo2 appears to be at baseline, and his fio2 is again at baseline. I am not concerned about an evolving pneumonia given his normal wbc and lack of fever. his secretions are baseline for him. I do think he may benefit from recruitment maneuvers, and I have ordered IBBP q4h. Otherwise, I do not see any change in clinical status that requires an increase in level of care. Active Problems: Hypoxia Tracheostomy dependence CVA Pulmonary secretions Atelectasis Recommendations: -- IPPB q4h scheduled -- frequent suctioning and aggressive pulmonary toilet. -- If the patient spikes a fever or elevated wbc, with ongoing secretions and hypoxia, I would recommend sputum culture and broad spectrum abx. -- wean fio2 for goal spo2 > 90%. -- unless tissue spo2 probe is unable to be obtained, I would recommend using this to titrate fio2 and not abg for oxygenation. -- I do not think the patient meets criteria for ICU admission. My recommendation is to continue the patient's current level of care. -- I have discussed my findings and recommendations with Dr. Gonzalez. He feels safe to keep the patient on his service at this time. Critical Care Medicine will sign-off. Please re-consult as needed. Discussed Condition With Respiratory therapist on 5N, bedside RN on 5N, weigher and charger on 5N, Dr. Gonzalez. Lyndon Navarro MD Jul 28, 2016 17:50
[2016-07-28] MEDS: PARoxetine HCL SUSP 20 MG/10 ML UDC PEG SCH (17:52)
[2016-07-28] MEDS: INSULIN DETEMIR 100 UNITS/ML VIAL SQ SCH (21:00)
[2016-07-29] VITALS (7 sets, daily range): BP systolic 122–139; BP diastolic 75–83; PULSE 79–97; RESP 18–20; TEMP 95.6–98.8; O2SAT 95–99
[2016-07-29] MEDS: HEPARIN SODIUM - SQ 10,000 UNITS/ML VIAL SQ SCH ×4 (00:06→22:00)
[2016-07-29] MEDS: NYSTATIN 100,000 U/GM PWD 15 GM BTL TOPICAL SCH ×3 (00:07→21:00)
[2016-07-29] MEDS: ACETIC ACID 0.25% SOLN 1000 ML IRR BTL IRRIGATION SCH ×4 (00:07→22:00)
[2016-07-29] MEDS: BACITRACIN TOP OINT 15 GM TUBE TOP SCH ×3 (00:07→21:00)
[2016-07-29] MEDS: ARTIFICIAL TEARS OPTH OINT 3.5 APPLIC/3.5 GM TUBO EACH EYE SCH ×3 (00:08→21:00)
[2016-07-29] MEDS: FREE WATER TUBE SCH ×7 (04:00→23:58)
[2016-07-29] MEDS: ACETAMINOPHEN/HYDROcodone 325 MG/5 MG TAB PEG SCH ×5 (04:12→23:53)
[2016-07-29] MEDS: levETIRAcetam 500 MG/5 ML UDC TUBE SCH ×2 (09:00→21:00)
[2016-07-29] MEDS: ASPIRIN 325 MG TAB TUBE SCH (09:00)
[2016-07-29] MEDS: RANITIDINE HCL SYRUP 150 MG/10 ML UDC PO SCH (09:00)
[2016-07-29] MEDS: DILTIAZEM HCL 90 MG TAB PEG SCH ×4 (09:00→21:00)
[2016-07-29] MEDS: LACTOBACILLUS ACIDOPHILUS TAB PEG SCH ×3 (09:00→18:00)
[2016-07-29] MEDS: POTASSIUM CHLORIDE 25 MEQ EFFERVESCENT TAB TUBE SCH (09:00)
[2016-07-29] MEDS: METOPROLOL TARTRATE 50 MG TAB PO SCH ×2 (09:00→21:00)
[2016-07-29] MEDS: INSULIN ASPART SUPPLEMENTAL SCALE SQ SCH (09:36)
--- NOTE | 2016-07-29 12:23 | HHI.PR ---
Subjective Remarks Patient getting cleaned by the nurse an TIFFANY His sacral wound looks dry Still waiting on PEG tube replacement Objective Vitals Vital Signs Date Time Temp Pulse Resp B/P Pulse Ox O2 Delivery O2 Flow Rate FiO2 07/29/16 08:07 97 T-piece 28 07/29/16 08:07 97 T-piece 28 07/29/16 08:00 98.0 92 19 135/83 95 07/29/16 04:00 98.8 93 20 122/75 97 07/28/16 23:35 99.7 93 20 135/71 96 07/28/16 21:45 98 T-piece 5.00 28 07/28/16 20:23 98.6 84 18 139/84 96 07/28/16 18:15 100 T-piece 28 07/28/16 17:20 98 T-piece 28 07/28/16 16:00 97.8 71 19 125/90 95 07/28/16 16:00 89 T-piece 28 07/28/16 12:40 100 T-piece 100 07/28/16 12:20 91 T-piece 40 I/O 07/28/16 07/28/16 07/28/16 07/29/16 07/29/16 07/29/16 07:00 15:00 23:00 07:00 15:00 23:00 Output Total 350 ml 700 ml 800 ml Balance -350 ml -700 ml -800 ml Output Urine Total 350 ml 700 ml 800 ml # Bowel Movements 1 1 2 Result Diagram: 07/28/16 1450 Objective Remarks Gen.: 60 years old bedridden patient, eyes open, CARDIOVASCULAR: RRR without murmurs.Peripheral pulses symmetric. Trace edema upper extremities. NECK/CHEST: Tracheostomy midline, . On T piece, RESPIRATORY: coarse air bilaterally. Breath sounds equal bilaterally. GASTROINTESTINAL: Abdomen soft, no apparent tenderness, nondistended. No palpable masses. Bowel sounds normoactive. PEG in place MUSCULOSKELETAL: Extremities without clubbing, cyanosis. Trace edema upper extremities No joint effusion noted. No mottling or clubbing.+ Muscle atrophy to all 4 extremities. NEUROLOGICAL: Eyes open, does not track, doesn't follow commands. No movement of all 4 extremities. Procedures 01/02/16 PEG placement 01/02/16 tracheostomy 07/22/2016 Wide excision of sacral skin wound, biopsy of the cavity lining and debridement. Date of Insertion: Jun 06, 2016 A/P Problem List: (1) CVA (cerebral vascular accident) ICD Code: I63.9 Status: Acute (2) A-fib ICD Code: I48.91 Status: Chronic (3) DM (diabetes mellitus) ICD Code: E11.9 Status: Chronic Assessment and Plan 07/25/16: No acute issue continue current care 07/26/16: cont current care 07/27/16: No acute issues overnight, continue current management 07/28/16:Discussed with the nurse, we have a leak in the PEG tube, will consult IR for placement tomorrow, will place on D5 half-normal saline with a lower rate of 40. Also discussed with Dr. brown regarding she is on Rocephin since May, he recommended continuing. D/W respiratory, patient with significant increase secretions, with O2 sat in the 80s, no fever, will do chest x-ray and check ABG, check CBC for any leukocytosis, and monitor, patient is on alternative code connect to ventilator if needed, we will follow Addendum: Received a call for ABG results showing pH of 7.45, PO2 of 54, PCO2 of 35, is on 40% oxygen, respiratory increased oxygen and repeat ABG in 1 hours , awaiting chest x-ray and CBC Chest x-ray showed increased opacity left base Later on respiratory and the nurse called with her feet ABG on 100% oxygen, recommended ventilator, and consultation for railroad purchasing agent, which was placed 07/29/16: Yesterday evening received a call from railroad purchasing agent Dr. Navarro who informed me that patient stabilized and what he needs is more scheduled frequent CPT, toileting and suctioning, patient return back to the [facility] floor Today his head stable, Continue frequent CPT, toileting and suctioning A/P: 60-year-old male with past medical history of paroxysmal atrial fibrillation, hypertension, stage III a non-Hodgkin's lymphoma status post a chemotherapy last year. He came to the hospital with altered mental status, facial droop. 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 Non verbal. Continue Keppra. Palliative care following. PT/OT signed off. Chronic respiratory failure: Secondary to CVA, Status post tracheostomy. Continue pulmonary toilet and neb treatments as needed. Continue bronchodilators Xopenex, trach care, Levsin prn, suctioning. On 28% Os 07/05. A-fib: Continue rate control, Cardizem and metoprolol with holding parameters. Echocardiogram completed in November shows preserved EF. Coumadin discontinued secondary to bleeding. Continue with ASA and prophylactic heparin dose. If persistently without any bleeding, could consider restarting Coumadin. CBC stable. Heart rate stable 07/05. Continue to monitor. History of Non-Hodgkin lymphoma: s/p brain biopsy on December 13, by Neurosurgery, Dr. Marin. Pathology consistent with acute infarct without evidence of lymphoma. Oncology signed off with no active oncology issues. DM (diabetes mellitus): HgbA1c 7%. Continue Levemir 35u daily. Continue sliding scale coverage. Monitor accuchecks and adjust the regimen as needed. Decubitus ulcer stage IV: Continue Rocephin indefinitely (on lactinex) per ID until OM is ruled out with bone biopsy and watch for further bleeding (off warfarin due to bleeding which appears to have resolved). Continue dressing changes twice daily per wound care recommendations. Continue pressure relief measures, mattress, Turning and positioning. Patient's family declined a diverting colostomy. Continue wound care. Wound is growing Klebsiella. Continue ceftriaxone. Per ID on 07/05, continue antibiotics for however long pt is here and then possibly could switch to PO upon discharge. Patient is on Rocephin since June 10 by ID for Klebsiella infection, discussed with Dr. Liu on 07/28/16, he would like to continue on Rocephin GI/Nutrition: Continue Nepro at 55 cc/hr per dietitian recommendations. Free water flushes. Potassium supplement. Tolerating tube feeds 07/05. DVT px - SCDs. Problem Qualifiers (1) DM (diabetes mellitus): Qualified Code: E11.9 - Type 2 diabetes mellitus without complications Terrence Gonzalez MD Jul 29, 2016 12:23
--- NOTE | 2016-07-29 13:41 | HHI.IDPN ---
Note Infectious Disease Note ID Follow up. Chart reviewed. Patient had sacral wound debridement and biopsy on 07/22/16. New sacrum wound culture has enterococcus faecalis. Having copious oral and trach secretions. Noted to have O2 desaturation yesterday. Afebrile. Awake. Not verbal. Does not appear to be in distress. Has trach collar. This 60-year-old male was admitted to the hospital on December 20 with altered mental status. He was eventually found to have a CVA. He was recently diagnosed with stage III non-Hodgkin's lymphoma about a year ago. The patient was intubated and he underwent tracheostomy and feeding tube placement. He was diagnosed with an acute stroke. PAST MEDICAL HISTORY 1. Hypertension. 2. Stage III non-Hodgkin's lymphoma. 3. Diabetes mellitus. 4. Paroxysmal atrial fibrillation. 5. Brain biopsy in Nov, 2015. 6. History of left arm surgery. ALLERGIES NO KNOWN DRUG ALLERGIES. Current Medications Medications (Trade) Dose Ordered Sig/Junior Route PRN Reason Start Time Stop Time Status Last Admin Dose Admin IV Flush (NS Flush) 2 ml UNSCH PRN IVF FLUSH AFTER USING IV ACCESS 12/21/15 06:00 07/17/16 09:25 Levetriacetam (Keppra Liq) 500 mg Q12HR TUBE 12/27/15 21:00 07/28/16 08:54 Acetaminophen (Tylenol 650 Mg/ 20 ml Liq) 650 mg Q6H PRN TUBE TEMP >100.4 12/30/15 15:15 04/22/16 14:42 Nystatin (Mycostatin Powder) 1 applic Q12HR TOPICAL 01/08/16 21:00 07/29/16 00:07 Miscellaneous (Pill Splitter) 1 ea UNSCH PRN OTHER SEE LABEL COMMENTS 01/14/16 08:30 Ranitidine HCl (Zantac Liq) 150 mg Q24H PO 01/18/16 09:00 07/28/16 08:54 Acetic Acid (Acetic Acid 0.25% Irr Btl) 10 ml Q8HR IRRIGATION 02/05/16 16:00 07/29/16 05:45 Lorazepam (Ativan Inj) 0.5 mg Q4H PRN IV PUSH seizures or agitation 03/07/16 23:00 Paroxetine HCl (Paxil Liq) 20 mg DAILY@1900 PEG 03/12/16 19:00 07/27/16 18:55 Insulin Detemir (Levemir Inj) 35 units HS SQ 03/24/16 21:00 07/27/16 21:00 Artificial Tears (Lacrilube Opht Oint) 1 applic Q12HR EACH EYE 04/10/16 11:00 07/29/16 00:08 Hyoscyamine Sulfate (Levsin) 0.25 mg Q4H PRN G-TUBE INCREASED SECRETIONS 04/11/16 10:30 07/27/16 08:51 Ondansetron HCl (Zofran Inj) 4 mg Q6HR PRN IV PUSH nausea/vomiting 04/14/16 19:45 07/05/16 21:49 Water (Free Water) 200 ml Q4HR TUBE 04/16/16 12:00 07/28/16 08:00 Acetaminophen/ Hydrocodone Bitart ([address] 5-325 Mg) 1 tab Q6HR PEG 04/18/16 18:00 07/28/16 05:57 Dextrose (D50w (Vial) Inj) 25 ml UNSCH PRN IV HYPOGLYCEMIA-SEE COMMENTS 04/20/16 12:00 Glucagon (Glucagon Inj) 1 mg UNSCH PRN IM/SQ HYPOGLYCEMIA-SEE COMMENTS 04/20/16 12:00 Potassium Bicarb/ Potassium Chloride (K-Lyte Cl Eff) 25 meq DAILY TUBE 05/28/16 09:00 07/28/16 08:54 Aspirin (Aspirin) 325 mg DAILY TUBE 05/27/16 11:40 07/28/16 08:54 Docusate Sodium (Colace Liq) 100 mg DAILY PRN PO constipation 05/27/16 11:45 07/08/16 01:24 Metoprolol Tartrate (Lopressor) 50 mg BID PO 05/29/16 21:00 07/28/16 08:54 Acetaminophen/ Hydrocodone Bitart ([address] 5-325 Mg) 1 tab Q6H PRN TUBE PAIN SCALE 1 TO 10 06/03/16 03:00 06/27/16 22:16 Lactobacillus Acidophilus 1 tab 1 tab TID PEG 06/07/16 13:00 07/28/16 08:54 Ceftriaxone Sodium/Sodium Chloride (Rocephin Inj/NS Inj) 100 ml @ 200 mls/hr Q24H IV 06/10/16 12:00 07/28/16 12:19 Heparin Sodium (Porcine) (Heparin Inj) 5,000 units Q8HR SQ 06/11/16 14:00 07/29/16 00:06 Diltiazem HCl (Cardizem) 30 mg QID PEG 07/17/16 18:00 07/28/16 08:54 Bacitracin 1 applic 1 applic BID TOP 07/20/16 10:00 07/29/16 00:07 Lactated Ringer's 1,000 ml @ 30 mls/hr Q24H IV 07/21/16 17:45 Dextrose (D5W 1000 ml Inj) 1,000 ml @ 40 mls/hr Q24H ONCE IV 07/28/16 14:00 07/29/16 13:59 07/28/16 14:33 SOCIAL HISTORY . Positive tobacco use. No alcohol use. No illicit drugs. FAMILY HISTORY Unable to obtain. OBJECTIVE: Vital Signs Date Time Temp Pulse Resp B/P Pulse Ox O2 Delivery O2 Flow Rate FiO2 07/29/16 12:00 96.7 88 20 125/82 96 07/29/16 08:07 97 T-piece 28 07/29/16 08:07 97 T-piece 28 07/29/16 08:00 98.0 92 19 135/83 95 07/29/16 04:00 98.8 93 20 122/75 97 07/28/16 23:35 99.7 93 20 135/71 96 07/28/16 21:45 98 T-piece 5.00 28 07/28/16 20:23 98.6 84 18 139/84 96 07/28/16 18:15 100 T-piece 07/28/16 17:20 98 T-piece 07/28/16 16:00 97.8 71 19 125/90 95 07/28/16 16:00 89 T-piece 28 07/28/16 07/28/16 07/29/16 15:00 23:00 07:00 Output Total 700 ml 800 ml Balance -700 ml -800 ml Output Urine Total 700 ml 800 ml # Bowel Movements 1 2 Laboratory Tests Test 07/28/16 14:50 White Blood Count 5.3 TH/MM3 Red Blood Count 4.09 MIL/MM3 Hemoglobin 9.9 GM/DL Hematocrit 30.0 % Mean Corpuscular Volume 73.3 FL Mean Corpuscular Hemoglobin 24.1 PG Mean Corpuscular Hemoglobin 32.9 % Concent Red Cell Distribution Width 19.5 % Platelet Count 198 TH/MM3 Mean Platelet Volume 8.6 FL Neutrophils (%) (Auto) 68.3 % Lymphocytes (%) (Auto) 20.9 % Monocytes (%) (Auto) 7.4 % Eosinophils (%) (Auto) 3.2 % Basophils (%) (Auto) 0.2 % Neutrophils # (Auto) 3.6 TH/MM3 Lymphocytes # (Auto) 1.1 TH/MM3 Monocytes # (Auto) 0.4 TH/MM3 Eosinophils # (Auto) 0.2 TH/MM3 Basophils # (Auto) 0.0 TH/MM3 CBC Comment AUTO DIFF Differential Comment AUTO DIFF CONFIRMED Platelet Estimate NORMAL Platelet Morphology Comment NORMAL Ovalocytes 1+ IMAGING: Chest X-Ray 07/28/16 0000 Signed Impressions: Service Date/Time: Thursday, July 28, 2016 13:18 - CONCLUSION: Slight increase in parenchymal opacity left base. Octavio Ramírez MD FACR PHYSICAL EXAMINATION GENERAL: No acute distress. HEENT: The sclerae are nonicteric. No erythema. Oropharynx - moist mucosa visible. NECK: Supple without adenopathy. Trach collar. Barker secretions. LUNGS: Bilateral basilar rhonchi. . HEART: Regular rate and rhythm. No murmurs, rubs or gallops. ABDOMEN: Bowel sounds present, soft, no tenderness appreciated. BACK: Sacrum ulcer. EXTREMITIES: No clubbing, cyanosis or edema. NEUROLOGIC: Unable to assess. SKIN: No rash. IMPRESSION 1. Sacral wound. Post debridement now with Enterococcus. previously Klebsiella. 2. CVA. 3. Post tracheostomy. Increased secretions. Left base opacity on CXR. RECOMMENDATIONS 1. Start Unasyn for enterococcus. Targeted culture organism. 2. Stop Ceftriaxone. 3. Obtain sputum culture. 4. Monitor clinical status. Carlos Liu MD Jul 29, 2016 13:41
[2016-07-29] MEDS: AMPICILLIN-SULBACTAM INJ 3 GM in SODIUM CHLORIDE 0.9% INJ 100 ML IV SCH ×2 (14:46→20:00)
[2016-07-29] MEDS: PARoxetine HCL SUSP 20 MG/10 ML UDC PEG SCH (19:00)
[2016-07-29] MEDS: INSULIN DETEMIR 100 UNITS/ML VIAL SQ SCH (21:00)
--- NOTE | 2016-07-29 22:54 | HHI.GIFU ---
Subjective Remarks Chronically ill-appearing fatigued male but not in any acute distress we are asked to see for evaluation of PEG tube replacement as his current PEG tube is clogged and is malfunctioning Objective Vitals I&O Vital Signs Date Time Temp Pulse Resp B/P Pulse Ox O2 Delivery O2 Flow Rate FiO2 07/29/16 19:40 99 T-piece 6.00 07/29/16 14:00 95.6 79 18 139/76 95 07/29/16 12:00 96.7 88 20 125/82 96 07/29/16 11:00 97 07/29/16 08:07 97 T-piece 28 07/29/16 08:07 97 T-piece 28 07/29/16 08:00 98.0 92 19 135/83 95 07/29/16 04:00 98.8 93 20 122/75 97 07/28/16 23:35 99.7 93 20 135/71 96 I/O 07/28/16 07/28/16 07/28/16 07/29/16 07/29/16 07/29/16 07:00 15:00 23:00 07:00 15:00 23:00 Output Total 350 ml 700 ml 800 ml 400 ml Balance -350 ml -700 ml -800 ml -400 ml Output Urine Total 350 ml 700 ml 800 ml 400 ml # Bowel Movements 1 1 2 2 Laboratory Date/Time Procedure Status Source Growth 07/29/16 14:53 Gram Stain Received Sputum Endotracheal Pending 07/29/16 14:53 Sputum Culture Received Sputum Endotracheal Pending Physical Exam HEENT: Normocephalic; atraumatic; no jaundice. CHEST: Scattered rhonchi. Tracheostomy, to TBar CARDIAC: RRR. ABDOMEN: Soft, round, nondistended, nontender; no hepatosplenomegaly; bowel sounds are present in all four quadrants. PEG tube site without redness, swelling,drainage but the PEG tube is not working I tried to remove it by deflating the balloon but after multiple attempts at pulling it out I was unsuccessful my concern that there may be a knot that is preventing him from coming out EXTREMITIES: Generalized edema. SKIN: Normal; no rash; no jaundice. BACK OFFICE MEDICAL ASSISTANT: Resting with eyes open, does not follow commands Assessment and Plan Plan ASSESSMENT: -Dysfunctional PEG tube unable to remove and replace at bedside patient will need an EGD to further evaluate this this is to be scheduled for tomorrow Continue current supportive care Sampson Gibbons MD Jul 29, 2016 22:54
[2016-07-29] MEDS: ONDANSETRON HCL 4 MG/2 ML VIAL IV PUSH PRN (23:54)
[2016-07-30] VITALS (11 sets, daily range): BP systolic 82–141; BP diastolic 60–97; PULSE 83–119; RESP 20–24; TEMP 96.8–99.2; O2SAT 91–100
[2016-07-30] MEDS: AMPICILLIN-SULBACTAM INJ 3 GM in SODIUM CHLORIDE 0.9% INJ 100 ML IV SCH ×4 (02:45→21:16)
[2016-07-30] MEDS: HEPARIN SODIUM - SQ 10,000 UNITS/ML VIAL SQ SCH ×3 (02:49→21:17)
[2016-07-30] MEDS: ACETAMINOPHEN/HYDROcodone 325 MG/5 MG TAB PEG SCH ×3 (02:49→18:38)
[2016-07-30] MEDS: FREE WATER TUBE SCH ×5 (02:49→20:00)
[2016-07-30] MEDS: LACTATED RINGER'S 1000 ML IV SCH (06:00)
[2016-07-30] MEDS: ACETIC ACID 0.25% SOLN 1000 ML IRR BTL IRRIGATION SCH ×3 (06:00→21:17)
[2016-07-30] MEDS: SODIUM CHLORID 0.9% 500 ML IV SCH ×2 (06:00→22:40)
[2016-07-30] MEDS: ARTIFICIAL TEARS OPTH OINT 3.5 APPLIC/3.5 GM TUBO EACH EYE SCH ×2 (09:00→21:00)
[2016-07-30] MEDS: POTASSIUM CHLORIDE 25 MEQ EFFERVESCENT TAB TUBE SCH (09:00)
[2016-07-30] MEDS: BACITRACIN TOP OINT 15 GM TUBE TOP SCH ×2 (09:00→21:00)
[2016-07-30] MEDS: NYSTATIN 100,000 U/GM PWD 15 GM BTL TOPICAL SCH ×2 (09:00→21:00)
--- NOTE | 2016-07-30 10:08 | PD.PROCEDR ---
GI Procedure REFERRING PHYSICIAN Dr. Buck PROCEDURE PERFORMED PEG removal and GJ tube placement INDICATION FOR PROCEDURE Dysphagia and malfunctioning PEG tube PROCEDURE: The procedure, risks and benefits were discussed with Mr. Flores and informed consent was obtained. Anesthesia sedated him with Diprivan. He was placed in the left lateral decubitus position. EGD: The Pentax videoscope was introduced through the oropharynx and advanced to the second portion of the duodenum under direct visualization. Retroflexion was performed in the stomach. FINDINGS: Esophagus there was distal esophageal mucosal erythema consistent with reflux esophagitis mild The stomach there was residual gastric juices in the stomach no food was seen there was a large gastric body ulcer opposite the PEG tube balloon no visible vessel clean-based because of the residual and the ulcer I opted to remove the PEG tube and through the same opening we placed a GJ tube the rest of the gastric mucosa was unremarkable The duodenum this was normal ESTIMATED BLOOD LOSS: None SPECIMENS REMOVED: None COMPLICATIONS: None IMPRESSION: Gastric ulcer Reflux Esophagitis Residual gastric juices PLAN: PPI Supportive care Use jejunal tube for feeding and gastric tube for medications Recommend EGD in 2-3 months to follow-up on ulcer Sampson Gibbons MD Jul 30, 2016 10:08
[2016-07-30] MEDS: DILTIAZEM HCL 90 MG TAB PEG SCH ×4 (11:40→21:17)
[2016-07-30] MEDS: PANTOPRAZOLE SODIUM 40 MG VIAL IV PUSH SCH ×2 (11:41→21:17)
[2016-07-30] MEDS: METOPROLOL TARTRATE 50 MG TAB PO SCH ×2 (11:41→21:18)
[2016-07-30] MEDS: LACTOBACILLUS ACIDOPHILUS TAB PEG SCH ×3 (11:41→18:37)
[2016-07-30] MEDS: levETIRAcetam 500 MG/5 ML UDC TUBE SCH ×2 (11:42→21:17)
[2016-07-30] MEDS: ASPIRIN 325 MG TAB TUBE SCH (11:42)
--- NOTE | 2016-07-30 13:15 | HHI.PR ---
Subjective Remarks Resting comfortably in bed, closed eyes, on T piece, PEG tube changed today, I discussed with the family at the bedside including the mother Objective Vitals Vital Signs Date Time Temp Pulse Resp B/P Pulse Ox O2 Delivery O2 Flow Rate FiO2 07/30/16 10:17 108 28 113/80 95 07/30/16 10:12 110 28 112/71 94 07/30/16 10:07 98.1 109 28 109/71 94 07/30/16 09:20 98.8 119 20 124/83 100 07/30/16 09:01 98 T-piece 28 07/30/16 09:01 98 T-piece 6.00 28 07/30/16 08:00 97.9 119 22 141/97 07/30/16 04:00 98.8 119 20 124/83 100 07/30/16 00:08 99.2 116 24 139/84 96 07/30/16 00:00 97.3 118 20 139/84 91 07/29/16 19:40 99 T-piece 6.00 07/29/16 14:00 95.6 79 18 139/76 95 I/O 07/29/16 07/29/16 07/29/16 07/30/16 07/30/16 07/30/16 07:00 15:00 23:00 07:00 15:00 23:00 Intake Total 250 ml Output Total 800 ml 400 ml 600 ml Balance -800 ml -400 ml -600 ml 250 ml IV Total 250 ml Output Urine Total 800 ml 400 ml 600 ml # Bowel Movements 2 2 Result Diagram: 07/28/16 8010 Objective Remarks Gen.: 60 years old bedridden patient, eyes open, CARDIOVASCULAR: RRR without murmurs.Peripheral pulses symmetric. Trace edema upper extremities. NECK/CHEST: Tracheostomy midline, . On T piece, RESPIRATORY: coarse air bilaterally. Breath sounds equal bilaterally. GASTROINTESTINAL: Abdomen soft, no apparent tenderness, nondistended. No palpable masses. Bowel sounds normoactive. PEG in place MUSCULOSKELETAL: Extremities without clubbing, cyanosis. Trace edema upper extremities No joint effusion noted. No mottling or clubbing.+ Muscle atrophy to all 4 extremities. NEUROLOGICAL: Eyes open, does not track, doesn't follow commands. No movement of all 4 extremities. Procedures 01/02/16 PEG placement 01/02/16 tracheostomy 07/22/2016 Wide excision of sacral skin wound, biopsy of the cavity lining and debridement. PEG tube replacement 07/29/16 Date of Insertion: Jun 06, 2016 A/P Problem List: (1) CVA (cerebral vascular accident) ICD Code: I63.9 Status: Acute (2) A-fib ICD Code: I48.91 Status: Chronic (3) DM (diabetes mellitus) ICD Code: E11.9 Status: Chronic Assessment and Plan 07/25/16: No acute issue continue current care 07/26/16: cont current care 07/27/16: No acute issues overnight, continue current management 07/28/16:Discussed with the nurse, we have a leak in the PEG tube, will consult IR for placement tomorrow, will place on D5 half-normal saline with a lower rate of 40. Also discussed with Dr. brown regarding she is on Rocephin since May, he recommended continuing. D/W respiratory, patient with significant increase secretions, with O2 sat in the 80s, no fever, will do chest x-ray and check ABG, check CBC for any leukocytosis, and monitor, patient is on alternative code connect to ventilator if needed, we will follow Addendum: Received a call for ABG results showing pH of 7.45, PO2 of 54, PCO2 of 35, is on 40% oxygen, respiratory increased oxygen and repeat ABG in 1 hours , awaiting chest x-ray and CBC Chest x-ray showed increased opacity left base Later on respiratory and the nurse called with her feet ABG on 100% oxygen, recommended ventilator, and consultation for behavioral pediatrician, which was placed 07/29/16: Yesterday evening received a call from behavioral pediatrician Dr. Navarro who informed me that patient stabilized and what he needs is more scheduled frequent CPT, toileting and suctioning, [facility] Today his head stable, Continue frequent CPT, toileting and suctioning 07/30/16: Stable in bed, still having profuse secretions, PEG tube replaced, ID changed Rocephin to Unasyn for enterococcus A/P: 60-year-old male with past medical history of paroxysmal atrial fibrillation, hypertension, stage III a non-Hodgkin's lymphoma status post a chemotherapy last year. He came to the hospital with altered mental status, facial droop. 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 Non verbal. Continue Keppra. Palliative care following. PT/OT signed off. Chronic respiratory failure: Secondary to CVA, Status post tracheostomy. Continue pulmonary toilet and neb treatments as needed. Continue bronchodilators Xopenex, trach care, Levsin prn, suctioning. On 28% Os 07/05. A-fib: Continue rate control, Cardizem and metoprolol with holding parameters. Echocardiogram completed in November shows preserved EF. Coumadin discontinued secondary to bleeding. Continue with ASA and prophylactic heparin dose. If persistently without any bleeding, could consider restarting Coumadin. CBC stable. Heart rate stable 07/05. Continue to monitor. History of Non-Hodgkin lymphoma: s/p brain biopsy on December 13, by Neurosurgery, Dr. Marin. Pathology consistent with acute infarct without evidence of lymphoma. Oncology signed off with no active oncology issues. DM (diabetes mellitus): HgbA1c 7%. Continue Levemir 35u daily. Continue sliding scale coverage. Monitor accuchecks and adjust the regimen as needed. Decubitus ulcer stage IV: Continue Rocephin indefinitely (on lactinex) per ID until OM is ruled out with bone biopsy and watch for further bleeding (off warfarin due to bleeding which appears to have resolved). Continue dressing changes twice daily per wound care recommendations. Continue pressure relief measures, mattress, Turning and positioning. Patient's family declined a diverting colostomy. Continue wound care. Wound is growing Klebsiella. Continue ceftriaxone. Per ID on 07/05, continue antibiotics for however long pt is here and then possibly could switch to PO upon discharge. Patient is on Rocephin since June 10 by ID for Klebsiella infection, discussed with Dr. Liu on 07/28/16, Rocephin stopped on 07/29/16, replaced with Unasyn GI/Nutrition: Continue Nepro at 55 cc/hr per dietitian recommendations. Free water flushes. Potassium supplement. Tolerating tube feeds 07/05. DVT px - SCDs. Problem Qualifiers (1) DM (diabetes mellitus): Qualified Code: E11.9 - Type 2 diabetes mellitus without complications Terrence Gonzalez MD Jul 30, 2016 13:15
[2016-07-30] MEDS: PARoxetine HCL SUSP 20 MG/10 ML UDC PEG SCH (18:39)
[2016-07-30] MEDS: INSULIN DETEMIR 100 UNITS/ML VIAL SQ SCH (21:17)
[2016-07-31] VITALS (8 sets, daily range): BP systolic 97–147; BP diastolic 66–81; PULSE 77–87; RESP 20–22; TEMP 95.8–97.7; O2SAT 92–98
[2016-07-31] MEDS: ACETAMINOPHEN/HYDROcodone 325 MG/5 MG TAB PEG SCH ×5 (01:31→23:05)
[2016-07-31] MEDS: FREE WATER TUBE SCH ×7 (04:00→23:05)
[2016-07-31] MEDS: AMPICILLIN-SULBACTAM INJ 3 GM in SODIUM CHLORIDE 0.9% INJ 100 ML IV SCH ×4 (04:37→23:04)
[2016-07-31] MEDS: ACETIC ACID 0.25% SOLN 1000 ML IRR BTL IRRIGATION SCH ×3 (06:00→22:00)
[2016-07-31] MEDS: HEPARIN SODIUM - SQ 10,000 UNITS/ML VIAL SQ SCH ×3 (06:17→23:04)
[2016-07-31] MEDS: NYSTATIN 100,000 U/GM PWD 15 GM BTL TOPICAL SCH ×2 (09:00→20:06)
[2016-07-31] MEDS: DILTIAZEM HCL 90 MG TAB PEG SCH ×4 (09:00→20:16)
[2016-07-31] MEDS: METOPROLOL TARTRATE 50 MG TAB PO SCH ×2 (09:00→20:04)
[2016-07-31] MEDS: levETIRAcetam 500 MG/5 ML UDC TUBE SCH ×2 (09:35→20:05)
[2016-07-31] MEDS: LACTOBACILLUS ACIDOPHILUS TAB PEG SCH ×3 (09:35→17:36)
[2016-07-31] MEDS: POTASSIUM CHLORIDE 25 MEQ EFFERVESCENT TAB TUBE SCH (09:35)
[2016-07-31] MEDS: ASPIRIN 325 MG TAB TUBE SCH (09:36)
[2016-07-31] MEDS: ARTIFICIAL TEARS OPTH OINT 3.5 APPLIC/3.5 GM TUBO EACH EYE SCH ×2 (09:38→20:05)
[2016-07-31] MEDS: BACITRACIN TOP OINT 15 GM TUBE TOP SCH ×2 (09:40→20:06)
[2016-07-31] MEDS: PANTOPRAZOLE SODIUM 40 MG VIAL IV PUSH SCH ×2 (10:54→23:04)
--- NOTE | 2016-07-31 13:12 | HHI.PR ---
Subjective Remarks Patient today resting comfortably in bed open eyes, his mother and at the bedside Discussed with them and with the nurse, O2 saturation is better today with less need of suctioning PEG tube functioning well, patient is afebrile, no acute issue Objective Vitals Vital Signs Date Time Temp Pulse Resp B/P Pulse Ox O2 Delivery O2 Flow Rate FiO2 07/31/16 10:05 98 T-piece 28 07/31/16 10:05 83 07/31/16 08:00 95.8 85 22 97/69 98 07/31/16 04:00 97.2 85 20 110/74 97 07/31/16 00:00 97.0 85 20 115/74 92 07/30/16 20:50 T-Piece 5.00 28 07/30/16 20:50 87 07/30/16 20:00 97.8 83 20 82/60 100 07/30/16 16:00 96.8 84 22 104/68 98 07/30/16 15:00 106/74 I/O 07/30/16 07/30/16 07/30/16 07/31/16 07/31/16 07/31/16 07:00 15:00 23:00 07:00 15:00 23:00 Intake Total 250 ml 595 ml 985 ml 300 ml Output Total 600 ml 350 ml 500 ml 500 ml Balance -600 ml -100 ml 95 ml 485 ml 300 ml IV Total 250 ml 100 ml 100 ml Tube Feeding 295 ml 485 ml Tube Irrigant 100 ml Other 200 ml 400 ml 200 ml Output Urine Total 600 ml 350 ml 500 ml 500 ml # Bowel Movements 3 1 Result Diagram: 07/28/16 1450 Objective Remarks Gen.: 60 years old bedridden patient, eyes open, CARDIOVASCULAR: RRR without murmurs.Peripheral pulses symmetric. Trace edema upper extremities. NECK/CHEST: Tracheostomy midline, . On T piece, RESPIRATORY: coarse air bilaterally. Breath sounds equal bilaterally. GASTROINTESTINAL: Abdomen soft, no apparent tenderness, nondistended. No palpable masses. Bowel sounds normoactive. PEG in place MUSCULOSKELETAL: Extremities without clubbing, cyanosis. Trace edema upper extremities No joint effusion noted. No mottling or clubbing.+ Muscle atrophy to all 4 extremities. NEUROLOGICAL: Eyes open, does not track, doesn't follow commands. No movement of all 4 extremities. Procedures 01/02/16 PEG placement 01/02/16 tracheostomy 07/22/2016 Wide excision of sacral skin wound, biopsy of the cavity lining and debridement. PEG tube replacement 07/29/16 Date of Insertion: Jun 06, 2016 A/P Problem List: (1) CVA (cerebral vascular accident) ICD Code: I63.9 Status: Acute (2) A-fib ICD Code: I48.91 Status: Chronic (3) DM (diabetes mellitus) ICD Code: E11.9 Status: Chronic Assessment and Plan D/W respiratory, patient with significant increase secretions, with O2 sat in the 80s, no fever, will do chest x-ray and check ABG, check CBC for any leukocytosis, and monitor, patient is on alternative code connect to ventilator if needed, we will follow Addendum: Received a call for ABG results showing pH of 7.45, PO2 of 54, PCO2 of 35, is on 40% oxygen, respiratory increased oxygen and repeat ABG in 1 hours , awaiting chest x-ray and CBC Chest x-ray showed increased opacity left base Later on respiratory and the nurse called with her feet ABG on 100% oxygen, recommended ventilator, and consultation for graduate civil engineer, which was placed 07/29/16: Yesterday evening received a call from graduate civil engineer Dr. Navarro who informed me that patient stabilized and what he needs is more scheduled frequent CPT, toileting and suctioning, patient return back to the [facility] floor Stable, Continue frequent CPT, toileting and suctioning Stable in bed, still having profuse secretions, PEG tube replaced, ID changed Rocephin to Unasyn for enterococcus A/P: 60-year-old male with past medical history of paroxysmal atrial fibrillation, hypertension, stage III a non-Hodgkin's lymphoma status post a chemotherapy last year. He came to the hospital with altered mental status, facial droop. 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 Non verbal. Continue Keppra. Palliative care following. PT/OT signed off. Chronic respiratory failure: Secondary to CVA, Status post tracheostomy. Continue pulmonary toilet and neb treatments as needed. Continue bronchodilators Xopenex, trach care, Levsin prn, suctioning. On 28% Os 07/05. A-fib: Continue rate control, Cardizem and metoprolol with holding parameters. Echocardiogram completed in November shows preserved EF. Coumadin discontinued secondary to bleeding. Continue with ASA and prophylactic heparin dose. If persistently without any bleeding, could consider restarting Coumadin. CBC stable. Heart rate stable 07/05. Continue to monitor. History of Non-Hodgkin lymphoma: s/p brain biopsy on December 13, by Neurosurgery, Dr. Marin. Pathology consistent with acute infarct without evidence of lymphoma. Oncology signed off with no active oncology issues. DM (diabetes mellitus): HgbA1c 7%. Continue Levemir 35u daily. Continue sliding scale coverage. Monitor accuchecks and adjust the regimen as needed. Decubitus ulcer stage IV: Continue Rocephin indefinitely (on lactinex) per ID until OM is ruled out with bone biopsy and watch for further bleeding (off warfarin due to bleeding which appears to have resolved). Continue dressing changes twice daily per wound care recommendations. Continue pressure relief measures, mattress, Turning and positioning. Patient's family declined a diverting colostomy. Continue wound care. Wound is growing Klebsiella. Continue ceftriaxone. Per ID on 07/05, continue antibiotics for however long pt is here and then possibly could switch to PO upon discharge. Patient is on Rocephin since June 10 by ID for Klebsiella infection, discussed with Dr. Liu on 07/28/16, Rocephin stopped on 07/29/16, replaced with Unasyn GI/Nutrition: Continue Nepro at 55 cc/hr per dietitian recommendations. Free water flushes. Potassium supplement. Tolerating tube feeds 07/05. DVT px - SCDs. Problem Qualifiers (1) DM (diabetes mellitus): Qualified Code: E11.9 - Type 2 diabetes mellitus without complications Terrence Gonzalez MD Jul 31, 2016 13:12
[2016-07-31] MEDS: PARoxetine HCL SUSP 20 MG/10 ML UDC PEG SCH (18:26)
[2016-07-31] MEDS: INSULIN DETEMIR 100 UNITS/ML VIAL SQ SCH (20:04)
[2016-08-01] VITALS (11 sets, daily range): BP systolic 112–142; BP diastolic 67–75; PULSE 76–108; RESP 16–22; TEMP 96.8–101.3; O2SAT 94–97
[2016-08-01] MEDS: FREE WATER TUBE SCH ×6 (04:00→23:32)
[2016-08-01] MEDS: ACETAMINOPHEN/HYDROcodone 325 MG/5 MG TAB PEG SCH ×4 (05:06→23:32)
[2016-08-01] MEDS: HEPARIN SODIUM - SQ 10,000 UNITS/ML VIAL SQ SCH ×3 (05:06→23:32)
[2016-08-01] MEDS: AMPICILLIN-SULBACTAM INJ 3 GM in SODIUM CHLORIDE 0.9% INJ 100 ML IV SCH ×2 (05:08→12:30)
[2016-08-01] MEDS: ACETIC ACID 0.25% SOLN 1000 ML IRR BTL IRRIGATION SCH ×3 (05:08→20:11)
[2016-08-01] MEDS: LACTATED RINGER'S 1000 ML IV SCH ×2 (06:00→16:15)
[2016-08-01] MEDS: ARTIFICIAL TEARS OPTH OINT 3.5 APPLIC/3.5 GM TUBO EACH EYE SCH ×2 (08:14→20:11)
[2016-08-01] MEDS: LACTOBACILLUS ACIDOPHILUS TAB PEG SCH ×3 (08:16→17:43)
[2016-08-01] MEDS: levETIRAcetam 500 MG/5 ML UDC TUBE SCH ×2 (08:16→20:09)
[2016-08-01] MEDS: POTASSIUM CHLORIDE 25 MEQ EFFERVESCENT TAB TUBE SCH (08:16)
[2016-08-01] MEDS: ASPIRIN 325 MG TAB TUBE SCH (08:19)
[2016-08-01] MEDS: DILTIAZEM HCL 90 MG TAB PEG SCH ×4 (08:19→20:08)
[2016-08-01] MEDS: METOPROLOL TARTRATE 50 MG TAB PO SCH ×2 (08:20→20:08)
[2016-08-01] MEDS: BACITRACIN TOP OINT 15 GM TUBE TOP SCH ×2 (08:20→20:11)
[2016-08-01] MEDS: NYSTATIN 100,000 U/GM PWD 15 GM BTL TOPICAL SCH ×2 (08:20→20:11)
[2016-08-01] MEDS: PANTOPRAZOLE SODIUM 40 MG VIAL IV PUSH SCH ×2 (09:02→23:32)
--- NOTE | 2016-08-01 14:08 | HHI.IDPN ---
Note Infectious Disease Note ID Follow up. Chart reviewed. Sleepy. Has low grade fever. Having oral and trach secretions. Sputum culture has pseudomonas. Getting oxygen via trach collar. Patient had sacral wound debridement and biopsy on 07/22/16. Sacrum wound culture had enterococcus faecalis. This 60-year-old male was admitted to the hospital on December 20 with altered mental status. He was eventually found to have a CVA. He was recently diagnosed with stage III non-Hodgkin's lymphoma about a year ago. The patient was intubated and he underwent tracheostomy and feeding tube placement. He was diagnosed with an acute stroke. PAST MEDICAL HISTORY 1. Hypertension. 2. Stage III non-Hodgkin's lymphoma. 3. Diabetes mellitus. 4. Paroxysmal atrial fibrillation. 5. Brain biopsy in Nov, 2015. 6. History of left arm surgery. ALLERGIES NO KNOWN DRUG ALLERGIES. Current Medications Medications (Trade) Dose Ordered Sig/Junior Route PRN Reason Start Time Stop Time Status Last Admin Dose Admin IV Flush (NS Flush) 2 ml UNSCH PRN IVF FLUSH AFTER USING IV ACCESS 12/21/15 06:00 07/17/16 09:25 Levetriacetam (Keppra Liq) 500 mg Q12HR TUBE 12/27/15 21:00 08/01/16 08:16 Acetaminophen (Tylenol 650 Mg/ 20 ml Liq) 650 mg Q6H PRN TUBE TEMP >100.4 12/30/15 15:15 04/22/16 14:42 Nystatin (Mycostatin Powder) 1 applic Q12HR TOPICAL 01/08/16 21:00 08/01/16 08:20 Miscellaneous (Pill Splitter) 1 ea UNSCH PRN OTHER SEE LABEL COMMENTS 01/14/16 08:30 Acetic Acid (Acetic Acid 0.25% Irr Btl) 10 ml Q8HR IRRIGATION 02/05/16 16:00 08/01/16 05:08 Lorazepam (Ativan Inj) 0.5 mg Q4H PRN IV PUSH seizures or agitation 03/07/16 23:00 Paroxetine HCl (Paxil Liq) 20 mg DAILY@1900 PEG 03/12/16 19:00 07/31/16 18:26 Insulin Detemir (Levemir Inj) 35 units HS SQ 03/24/16 21:00 07/31/16 20:04 Artificial Tears (Lacrilube Opht Oint) 1 applic Q12HR EACH EYE 04/10/16 11:00 08/01/16 08:14 Hyoscyamine Sulfate (Levsin) 0.25 mg Q4H PRN G-TUBE INCREASED SECRETIONS 04/11/16 10:30 07/27/16 08:51 Ondansetron HCl (Zofran Inj) 4 mg Q6HR PRN IV PUSH nausea/vomiting 04/14/16 19:45 07/29/16 23:54 Water (Free Water) 200 ml Q4HR TUBE 04/16/16 12:00 08/01/16 12:00 Acetaminophen/ Hydrocodone Bitart ([place] 5-325 Mg) 1 tab Q6HR PEG 04/18/16 18:00 08/01/16 12:29 Dextrose (D50w (Vial) Inj) 25 ml UNSCH PRN IV HYPOGLYCEMIA-SEE COMMENTS 04/20/16 12:00 Glucagon (Glucagon Inj) 1 mg UNSCH PRN IM/SQ HYPOGLYCEMIA-SEE COMMENTS 04/20/16 12:00 Potassium Bicarb/ Potassium Chloride (K-Lyte Cl Eff) 25 meq DAILY TUBE 05/28/16 09:00 08/01/16 08:16 Aspirin (Aspirin) 325 mg DAILY TUBE 05/27/16 11:40 08/01/16 08:19 Docusate Sodium (Colace Liq) 100 mg DAILY PRN PO constipation 05/27/16 11:45 07/08/16 01:24 Metoprolol Tartrate (Lopressor) 50 mg BID PO 05/29/16 21:00 08/01/16 08:20 Acetaminophen/ Hydrocodone Bitart ([place] 5-325 Mg) 1 tab Q6H PRN TUBE PAIN SCALE 1 TO 10 06/03/16 03:00 06/27/16 22:16 Lactobacillus Acidophilus (Lactinex) 1 tab TID PEG 06/07/16 13:00 08/01/16 12:28 Heparin Sodium (Porcine) (Heparin Inj) 5,000 units Q8HR SQ 06/11/16 14:00 08/01/16 05:06 Diltiazem HCl (Cardizem) 30 mg QID PEG 07/17/16 18:00 08/01/16 12:28 Bacitracin 1 applic 1 applic BID TOP 07/20/16 10:00 08/01/16 08:20 Lactated Ringer's 1,000 ml @ 30 mls/hr Q24H IV 07/21/16 17:45 Ampicillin Sodium/ Sulbactam Sodium 3 gm/Sodium Chloride 100 ml @ 200 mls/hr Q6H IV 07/29/16 14:00 08/01/16 12:30 Lactated Ringer's (Lr 1000 ml Inj) 1,000 ml @ 30 mls/hr Q24H IV 07/30/16 06:00 Pantoprazole Sodium (Protonix Inj) 40 mg Q12H IV PUSH 07/30/16 10:15 08/01/16 09:02 SOCIAL HISTORY . Positive tobacco use. No alcohol use. No illicit drugs. FAMILY HISTORY Unable to obtain. OBJECTIVE: Vital Signs Date Time Temp Pulse Resp B/P Pulse Ox O2 Delivery O2 Flow Rate FiO2 08/01/16 12:25 100.0 91 22 142/71 97 08/01/16 12:20 136/71 08/01/16 09:00 80 08/01/16 09:00 T-Piece 6.00 28 Humidified 08/01/16 08:17 98.3 93 20 112/69 94 08/01/16 07:53 96 T-piece 6.00 28 08/01/16 07:53 96 T-piece 6.00 28 08/01/16 06:09 96.8 87 21 125/72 96 08/01/16 00:00 96.8 76 18 139/75 96 07/31/16 21:41 95 T-piece 6.00 28 07/31/16 21:41 95 T-piece 6.00 28 07/31/16 20:00 97.7 81 20 142/73 98 07/31/16 20:00 98 T-Piece 5.00 28 Humidified 07/31/16 20:00 96.1 79 20 147/81 95 07/31/16 20:00 80 07/31/16 16:00 97.1 77 22 111/69 97 Microbiology Date/Time Procedure Status Source Growth 07/29/16 14:53 Gram Stain - Final Complete Sputum Endotracheal 07/29/16 14:53 Sputum Culture - Final Complete Pseudomonas Aeruginosa IMAGING: Chest X-Ray 07/28/16 0000 Signed Impressions: Service Date/Time: Thursday, July 28, 2016 13:18 - CONCLUSION: Slight increase in parenchymal opacity left base. Octavio Ramírez MD FACR PHYSICAL EXAMINATION GENERAL: No acute distress. HEENT: The sclerae are nonicteric. No erythema. Oropharynx - moist mucosa visible. NECK: Supple without adenopathy. Trach collar. Barker secretions. LUNGS: Bilateral basilar rhonchi. HEART: Regular rate and rhythm. No murmurs, rubs or gallops. ABDOMEN: Bowel sounds decreased, soft, no tenderness appreciated. BACK: Sacrum ulcer. EXTREMITIES: No clubbing, cyanosis or edema. NEUROLOGIC: Unable to fully assess. SKIN: No rash. IMPRESSION 1. Sacral wound. Post debridement now with Enterococcus. previously Klebsiella. 2. CVA. 3. Post tracheostomy. Increased secretions. Left base opacity on CXR. sputum culture has pseudomonas. Pneumonia. Repeat CXR reveal haziness at the periphery of the lower lobes per my review. RECOMMENDATIONS 1. Change Unasyn to Zyvox for sacrum wound treatment. Monitor platelet count. 2. Start Zosyn for pulmonary coverage. Anticipate 7 days. 3. Monitor temp. 4. Monitor clinical status. Carlos Liu MD Aug 01, 2016 14:08
--- NOTE | 2016-08-01 15:00 | RADRPT ---
EXAM DATE/TIME: 08/01/2016 13:51 [facility] COMPARISON: CHEST SINGLE AP, July 28, 2016, 13:18. INDICATIONS : Pneumonia. MEDICAL HISTORY : Hypertension. Diabetes mellitus type II. SURGICAL HISTORY : None. ENCOUNTER: Initial ACUITY: 4 - 6 days PAIN SCORE: Non-responsive. LOCATION: Bilateral chest FINDINGS: Rotated and underinflated AP view of the chest demonstrates a normal-sized cardiac silhouette. Trache ostomy remains present. There is mild patchy airspace opacity at the left lung base. There is a linea r opacity at the right lung base. No pneumothorax or pleural effusion is visualized. EKG lines overli e the patient. CONCLUSION: 1. Stable mild airspace opacity at the left lung base representing either atelectasis or airspace con solidation. 2. New subsegmental atelectasis at the right lung base. Glen Gordon MD on August 01, 2016 at 14:18 Board Certified Radiologist. This report was verified electronically.
[2016-08-01] MEDS: PIPERACIL-TAZO 4.5 GM PREMIX 100 ML IV SCH ×2 (16:14→23:32)
--- NOTE | 2016-08-01 16:17 | HHI.PR ---
Subjective Remarks Follow up for left MCA stroke, respiratory failure, decubitus ulcer. Patient is more drowsy today. Opens his eyes briefly but goes back to sleep. Mother at bedside. Patient had low-grade fever 100F today. Objective Vitals Vital Signs Date Time Temp Pulse Resp B/P Pulse Ox O2 Delivery O2 Flow Rate FiO2 08/01/16 12:25 100.0 91 22 142/71 97 08/01/16 12:20 136/71 08/01/16 09:00 80 08/01/16 09:00 T-Piece 6.00 28 Humidified 08/01/16 08:17 98.3 93 20 112/69 94 08/01/16 07:53 96 T-piece 6.00 28 08/01/16 07:53 96 T-piece 6.00 28 08/01/16 06:09 96.8 87 21 125/72 96 08/01/16 00:00 96.8 76 18 139/75 96 07/31/16 21:41 95 T-piece 6.00 28 07/31/16 21:41 95 T-piece 6.00 28 07/31/16 20:00 97.7 81 20 142/73 98 07/31/16 20:00 98 T-Piece 5.00 28 Humidified 07/31/16 20:00 96.1 79 20 147/81 95 07/31/16 20:00 80 I/O 07/31/16 07/31/16 07/31/16 08/01/16 08/01/16 08/01/16 07:00 15:00 23:00 07:00 15:00 23:00 Intake Total 985 ml 922 ml 1001 ml 921 ml 869 ml Output Total 500 ml 250 ml 300 ml 350 ml 350 ml Balance 485 ml 672 ml 701 ml 571 ml 519 ml IV Total 100 ml 200 ml 200 ml 100 ml Tube Feeding 485 ml 422 ml 401 ml 321 ml 769 ml Tube Irrigant 100 ml Other 400 ml 400 ml 400 ml 400 ml Output Urine Total 500 ml 250 ml 300 ml 350 ml 350 ml # Bowel Movements 1 1 0 2 Result Diagram: 07/28/16 1450 Imaging Last Impressions Chest X-Ray 08/01/16 0000 Signed Impressions: Service Date/Time: July 13:51 - CONCLUSION: 1. Stable mild airspace opacity at the left lung base representing either atelectasis or airspace consolidation. 2. New subsegmental atelectasis at the right lung base. Glen Gordon MD Abdomen/Pelvis CT 04/12/16 0000 Signed Impressions: Service Date/Time: Tuesday, April 12, 2016 20:52 - CONCLUSION: 1. 6.4 cm necrotic mass or abscess in the soft tissues posteriorly just below the sacrum associated with some bony destructive change of the lower most sacrum and coccyx with inflammatory changes extending into the ischiorectal fossa and into the presacral retroperitoneum predominantly on the left side. There is associated fairly marked mural thickening of the anal verge and rectum. 2. There is gastrostomy and Arevalo catheter present. Stable abdominal aortic aneurysm. Durga Dotson MD Head Magnetic Resonance Angiography 03/05/16 0000 Signed Impressions: Service Date/Time: Saturday, March 05, 2016 09:26 - CONCLUSION: Persistent high-grade subtotal occlusive stenotic lesions in the distal right vertebral artery and proximal basilar artery with significant improvement in flow and recanalization following initial presentation of thrombosis. Stable interstitial circulation without significant stenosis. 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 There is decreasing restricted diffusion and increasing loss of volume characteristic of a subacute to chronic infarct. No evidence of acute infarct, acute hemorrhage mass or edema. Ernesto Kulkarni MD Head CT 01/16/16 0000 Signed Impressions: Service Date/Time: Saturday, January 16, 2016 10:51 - CONCLUSION: No extensive low density in the brainstem colin more prominent in the right the left extending into the right middle cerebellar peduncle consistent with brainstem infarct nonhemorrhagic acute Wellington West MD Abdomen X-Ray 01/14/16 0000 Signed Impressions: Service Date/Time: Thursday, January 14, 2016 10:19 - CONCLUSION: Moderate stool; otherwise, negative. 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 No evidence of carotid stenosis. Glen Zamora MD Head/Brain Mag Res Venography 12/22/15 0000 Signed Impressions: Service Date/Time: Tuesday, December 22, 2015 09:22 - CONCLUSION: Normal MRV. Jonel Jones Jr., MD Objective Remarks GENERAL: Eyes open, closes eyes on command. No verbal communication. SKIN: Warm and dry. HEAD: Normocephalic. EYES: No scleral icterus. No injection or drainage. NECK: Supple, trachea midline. No JVD or lymphadenopathy. CARDIOVASCULAR: Regular rate and rhythm without murmurs, gallops, or rubs. RESPIRATORY: Coarse breath sounds. No accessory muscle use. GASTROINTESTINAL: Abdomen soft, non-tender, nondistended. MUSCULOSKELETAL: No cyanosis, or edema. BACK: Nontender without obvious deformity. No CVA tenderness. Procedures 01/02/16 PEG placement 01/02/16 tracheostomy 07/22/2016 Wide excision of sacral skin wound, biopsy of the cavity lining and debridement. PEG tube replacement 07/29/16 Date of Insertion: Jun 06, 2016 A/P Problem List: (1) CVA (cerebral vascular accident) ICD Code: I63.9 Status: Acute (2) A-fib ICD Code: I48.91 Status: Chronic (3) DM (diabetes mellitus) ICD Code: E11.9 Status: Chronic Assessment and Plan 60-year-old male with past medical history of paroxysmal atrial fibrillation, hypertension, stage III a non-Hodgkin's lymphoma status post a chemotherapy last year. He came to the hospital with altered mental status, facial droop. 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 Non verbal. Continue Keppra. Palliative care following. PT/OT signed off. Chronic respiratory failure: Secondary to CVA, Status post tracheostomy. Continue pulmonary toilet and neb treatments as needed. Continue bronchodilators Xopenex, trach care, Levsin prn, suctioning. On 28% Os 07/05. - ID evaluated patient today. Due to increased secretion, left base opacity on CXR, pseudomonas on sputum culture, ID started Zosyn for likely 7 days. A-fib: Continue rate control, Cardizem and metoprolol with holding parameters. Echocardiogram completed in November shows preserved EF. Coumadin discontinued secondary to bleeding. Continue with ASA and prophylactic heparin dose. If persistently without any bleeding, could consider restarting Coumadin. CBC stable. Heart rate stable 07/05. Continue to monitor. History of Non-Hodgkin lymphoma: s/p brain biopsy on December 13, by Neurosurgery, Dr. Marin. Pathology consistent with acute infarct without evidence of lymphoma. Oncology signed off with no active oncology issues. DM (diabetes mellitus): HgbA1c 7%. Continue Levemir 35u daily. Continue sliding scale coverage. Monitor accuchecks and adjust the regimen as needed. Decubitus ulcer stage IV: Continue Rocephin indefinitely (on lactinex) per ID until OM is ruled out with bone biopsy and watch for further bleeding (off warfarin due to bleeding which appears to have resolved). Continue dressing changes twice daily per wound care recommendations. Continue pressure relief measures, mattress, Turning and positioning. Patient's family declined a diverting colostomy. Continue wound care. Wound is growing Klebsiella. Continue ceftriaxone. Per ID on 07/05, continue antibiotics for however long pt is here and then possibly could switch to PO upon discharge. - s/p Wide excision of sacral skin wound, biopsy of the cavity lining and debridement on 07/22/2016. - ID changed abx Unasyn to Zyvox. GI/Nutrition: Continue Nepro at 55 cc/hr per dietitian recommendations. Free water flushes. Potassium supplement. Tolerating tube feeds 07/05. DVT px - SCDs Overall our plan would be to continue current care. If there is no further surgical intervention planned and after checking with Dr. Yoder, patient can be sent to [facility] since there is no safe discharge possibility in the foreseeable future. Problem Qualifiers (1) DM (diabetes mellitus): Qualified Code: E11.9 - Type 2 diabetes mellitus without complications Birdie Leal DO Aug 01, 2016 4:17 pm
[2016-08-01] MEDS: LINEZOLID 600 MG TAB PO SCH (20:08)
[2016-08-01] MEDS: INSULIN DETEMIR 100 UNITS/ML VIAL SQ SCH (20:10)
[2016-08-01] MEDS: SODIUM CHLORIDE 0.65% NASAL SPRAY 45 ML BTL NASAL SCH (20:11)
[2016-08-01] MEDS: ACETAMINOPHEN 650 MG/20.3 ML UDC TUBE PRN (23:33)
[2016-08-02] VITALS (8 sets, daily range): BP systolic 98–133; BP diastolic 60–88; PULSE 86–120; RESP 18–28; TEMP 95.1–100.4; O2SAT 94–98
[2016-08-02] MEDS: FREE WATER TUBE SCH ×6 (04:00→23:35)
[2016-08-02] MEDS: PIPERACIL-TAZO 4.5 GM PREMIX 100 ML IV SCH ×4 (05:02→22:07)
[2016-08-02] MEDS: HEPARIN SODIUM - SQ 10,000 UNITS/ML VIAL SQ SCH ×3 (05:02→22:07)
[2016-08-02] MEDS: ACETAMINOPHEN/HYDROcodone 325 MG/5 MG TAB PEG SCH ×4 (05:03→23:35)
[2016-08-02] MEDS: ACETIC ACID 0.25% SOLN 1000 ML IRR BTL IRRIGATION SCH ×3 (05:03→22:00)
[2016-08-02] MEDS: LACTATED RINGER'S 1000 ML IV SCH ×2 (06:00→15:18)
[2016-08-02] MEDS: INSULIN ASPART SUPPLEMENTAL SCALE SQ SCH ×2 (08:00→08:38)
[2016-08-02] MEDS: POTASSIUM CHLORIDE 25 MEQ EFFERVESCENT TAB TUBE SCH (08:19)
[2016-08-02] MEDS: levETIRAcetam 500 MG/5 ML UDC TUBE SCH ×2 (08:20→22:06)
[2016-08-02] MEDS: ASPIRIN 325 MG TAB TUBE SCH (08:20)
[2016-08-02] MEDS: LACTOBACILLUS ACIDOPHILUS TAB PEG SCH ×3 (08:20→18:00)
[2016-08-02] MEDS: LINEZOLID 600 MG TAB PO SCH ×2 (08:20→22:06)
[2016-08-02] MEDS: PANTOPRAZOLE SODIUM 40 MG VIAL IV PUSH SCH ×2 (08:20→22:08)
[2016-08-02] MEDS: NYSTATIN 100,000 U/GM PWD 15 GM BTL TOPICAL SCH ×2 (08:21→21:00)
[2016-08-02] MEDS: BACITRACIN TOP OINT 15 GM TUBE TOP SCH ×2 (08:21→21:00)
[2016-08-02] MEDS: DILTIAZEM HCL 90 MG TAB PEG SCH ×5 (08:22→22:06)
[2016-08-02] MEDS: METOPROLOL TARTRATE 50 MG TAB PO SCH ×2 (08:23→22:06)
[2016-08-02] MEDS: ARTIFICIAL TEARS OPTH OINT 3.5 APPLIC/3.5 GM TUBO EACH EYE SCH ×2 (08:24→21:00)
[2016-08-02] MEDS: SODIUM CHLORIDE 0.65% NASAL SPRAY 45 ML BTL NASAL SCH ×2 (08:24→21:00)
[2016-08-02] MEDS: HYOSCYAMINE 0.125 MG TAB G-TUBE PRN (12:46)
[2016-08-02] MEDS: DOCUSATE SODIUM 100 MG/10 ML UDC PO PRN (12:46)
[2016-08-02] MEDS: RESP: LEVALBUTEROL HYDROCHLORIDE 0.63 MG/3 ML NEB (PRN) NEB (13:48)
[2016-08-02] MEDS: ACETAMINOPHEN/HYDROcodone 325 MG/5 MG TAB TUBE PRN (15:11)
[2016-08-02] MEDS: INSULIN DETEMIR 100 UNITS/ML VIAL SQ SCH (21:00)
--- NOTE | 2016-08-02 22:19 | HHI.PR ---
Subjective Remarks Follow up for left MCA stroke, respiratory failure, decubitus ulcer. Mr. Flores remains unresponsive. His eyes are open but no meaningful communication. Heart rate somewhat elevated 100-120. Mother at bedside who is concerned about his O2 sat in the 85-87 range. After RN suctioned 3 or 4 times, patient's oxygenation improved well. No fever, chills. Objective Vitals Vital Signs Date Time Temp Pulse Resp B/P Pulse Ox O2 Delivery O2 Flow Rate FiO2 08/02/16 20:00 100.4 116 20 133/88 94 08/02/16 19:00 T-Piece 6.00 28 Humidified 08/02/16 18:22 96.4 08/02/16 15:07 120 28 129/70 95 08/02/16 12:04 95.1 93 22 98/60 96 08/02/16 10:20 97 T-piece 28 08/02/16 10:20 97 T-piece 28 08/02/16 08:57 T-Piece 6.00 28 Humidified 08/02/16 08:22 96.8 86 101/67 98 08/02/16 05:57 99.0 91 18 126/71 96 08/01/16 23:30 101.3 88 16 129/73 I/O 08/01/16 08/01/16 08/01/16 08/02/16 08/02/16 08/02/16 07:00 15:00 23:00 07:00 15:00 23:00 Intake Total 921 ml 869 ml Output Total 350 ml 350 ml 750 ml 250 ml 150 ml Balance 571 ml 519 ml -750 ml -250 ml -150 ml IV Total 200 ml 100 ml Tube Feeding 321 ml 769 ml Other 400 ml Output Urine Total 350 ml 350 ml 750 ml 250 ml 150 ml # Bowel Movements 2 0 0 0 Objective Remarks GENERAL: Eyes open, closes eyes on command. No verbal communication. SKIN: Warm and dry. HEAD: Normocephalic. EYES: No scleral icterus. No injection or drainage. NECK: Supple, trachea midline. No JVD or lymphadenopathy. CARDIOVASCULAR: Regular rate and rhythm without murmurs, gallops, or rubs. RESPIRATORY: Coarse breath sounds. No accessory muscle use. GASTROINTESTINAL: Abdomen soft, non-tender, nondistended. MUSCULOSKELETAL: No cyanosis, or edema. BACK: Nontender without obvious deformity. No CVA tenderness. Procedures 01/02/16 PEG placement 01/02/16 tracheostomy 07/22/2016 Wide excision of sacral skin wound, biopsy of the cavity lining and debridement. PEG tube replacement 07/29/16 Date of Insertion: Jun 06, 2016 A/P Problem List: (1) CVA (cerebral vascular accident) ICD Code: I63.9 Status: Acute (2) A-fib ICD Code: I48.91 Status: Chronic (3) DM (diabetes mellitus) ICD Code: E11.9 Status: Chronic Assessment and Plan 60-year-old male with past medical history of paroxysmal atrial fibrillation, hypertension, stage III a non-Hodgkin's lymphoma status post a chemotherapy last year. He came to the hospital with altered mental status, facial droop. 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 Non verbal. Continue Keppra. Palliative care following. PT/OT signed off. Chronic respiratory failure: Secondary to CVA, Status post tracheostomy. Continue pulmonary toilet and neb treatments as needed. Continue bronchodilators Xopenex, trach care, Levsin prn, suctioning. On 28% Os 07/05. - ID evaluated patient on 08/01/2016. Due to increased secretion, left base opacity on CXR, pseudomonas on sputum culture, ID started Zosyn for likely 7 days. A-fib: Continue rate control, Cardizem and metoprolol with holding parameters. Echocardiogram completed in November shows preserved EF. Coumadin discontinued secondary to bleeding. Continue with ASA and prophylactic heparin dose. If persistently without any bleeding, could consider restarting Coumadin. CBC stable. Heart rate stable 07/05. Continue to monitor. History of Non-Hodgkin lymphoma: s/p brain biopsy on December 13, by Neurosurgery, Dr. Marin. Pathology consistent with acute infarct without evidence of lymphoma. Oncology signed off with no active oncology issues. DM (diabetes mellitus): HgbA1c 7%. Continue Levemir 35u daily. Continue sliding scale coverage. Monitor accuchecks and adjust the regimen as needed. Decubitus ulcer stage IV: Continue Rocephin indefinitely (on lactinex) per ID until OM is ruled out with bone biopsy and watch for further bleeding (off warfarin due to bleeding which appears to have resolved). Continue dressing changes twice daily per wound care recommendations. Continue pressure relief measures, mattress, Turning and positioning. Patient's family declined a diverting colostomy. Continue wound care. Wound is growing Klebsiella. Continue ceftriaxone. Per ID on 07/05, continue antibiotics for however long pt is here and then possibly could switch to PO upon discharge. - s/p Wide excision of sacral skin wound, biopsy of the cavity lining and debridement on 07/22/2016. - ID changed abx Unasyn to Zyvox. GI/Nutrition: Continue Nepro at 55 cc/hr per dietitian recommendations. Free water flushes. Potassium supplement. Tolerating tube feeds 07/05. DVT px - SCDs Problem Qualifiers (1) DM (diabetes mellitus): Qualified Code: E11.9 - Type 2 diabetes mellitus without complications Birdie Leal DO Aug 02, 2016 22:19
[2016-08-02] MEDS: ACETAMINOPHEN 650 MG/20.3 ML UDC TUBE PRN (23:35)
[2016-08-03] VITALS (10 sets, daily range): BP systolic 99–119; BP diastolic 59–70; PULSE 76–116; RESP 18–28; TEMP 95.8–101.2; O2SAT 93–98
[2016-08-03] MEDS: FREE WATER TUBE SCH ×5 (04:00→20:12)
[2016-08-03] MEDS: ACETIC ACID 0.25% SOLN 1000 ML IRR BTL IRRIGATION SCH ×2 (06:00→15:48)
[2016-08-03] MEDS: LACTATED RINGER'S 1000 ML IV SCH ×2 (06:00→17:34)
[2016-08-03] MEDS: PIPERACIL-TAZO 4.5 GM PREMIX 100 ML IV SCH ×3 (06:07→15:43)
[2016-08-03] MEDS: ACETAMINOPHEN/HYDROcodone 325 MG/5 MG TAB PEG SCH ×3 (06:09→17:35)
[2016-08-03] MEDS: HEPARIN SODIUM - SQ 10,000 UNITS/ML VIAL SQ SCH ×2 (06:09→15:45)
[2016-08-03] MEDS: NYSTATIN 100,000 U/GM PWD 15 GM BTL TOPICAL SCH ×2 (08:55→20:19)
[2016-08-03] MEDS: levETIRAcetam 500 MG/5 ML UDC TUBE SCH ×2 (08:56→20:12)
[2016-08-03] MEDS: ASPIRIN 325 MG TAB TUBE SCH (08:56)
[2016-08-03] MEDS: LACTOBACILLUS ACIDOPHILUS TAB PEG SCH ×3 (08:56→17:36)
[2016-08-03] MEDS: DILTIAZEM HCL 90 MG TAB PEG SCH ×4 (08:57→20:18)
[2016-08-03] MEDS: METOPROLOL TARTRATE 50 MG TAB PO SCH ×2 (08:57→20:18)
[2016-08-03] MEDS: LINEZOLID 600 MG TAB PO SCH ×2 (08:57→20:12)
[2016-08-03] MEDS: ARTIFICIAL TEARS OPTH OINT 3.5 APPLIC/3.5 GM TUBO EACH EYE SCH ×2 (08:58→20:19)
[2016-08-03] MEDS: BACITRACIN TOP OINT 15 GM TUBE TOP SCH ×2 (08:58→20:20)
[2016-08-03] MEDS: PANTOPRAZOLE SODIUM 40 MG VIAL IV PUSH SCH (09:00)
[2016-08-03] MEDS: POTASSIUM CHLORIDE 25 MEQ EFFERVESCENT TAB TUBE SCH (09:04)
[2016-08-03] MEDS: SODIUM CHLORIDE 0.65% NASAL SPRAY 45 ML BTL NASAL SCH ×2 (09:08→20:19)
[2016-08-03 09:12] LABS: HEMATOCRIT 31.7 % (39.0-51.0); MEAN CELL VOLUME 74.4 FL (80.0-100.0); PLATELET COUNT 229 TH/MM3 (150-450); RED BLOOD COUNT 4.26 MIL/MM3 (4.50-5.90); RED CELL DISTRIBUTION WIDTH 19.6 % (11.6-17.2); WHITE BLOOD COUNT 11.3 TH/MM3 (4.0-11.0)
[2016-08-03 09:20] LABS: REVIEW FLAG FINAL
[2016-08-03] MEDS: ONDANSETRON HCL 4 MG/2 ML VIAL IV PUSH PRN (12:45)
[2016-08-03] MEDS: INSULIN ASPART SUPPLEMENTAL SCALE SQ SCH (12:48)
--- NOTE | 2016-08-03 14:40 | HHI.PR ---
Subjective Remarks Follow up for left MCA stroke, respiratory failure, decubitus ulcer. Mr. Flores remains aphasic, opens his eyes. Mother at bedside. Per RN, patient's urine output was very low. Bladder scan showed large amount of urine (900cc). Arevalo catheter was replaced. Objective Vitals Vital Signs Date Time Temp Pulse Resp B/P Pulse Ox O2 Delivery O2 Flow Rate FiO2 08/03/16 12:00 97.4 115 28 119/65 93 08/03/16 09:15 96 T-piece 6.00 28 08/03/16 09:15 96 T-piece 6.00 28 08/03/16 09:00 97 T-Piece 6.00 28 Humidified 08/03/16 08:00 95.8 83 22 99/60 98 08/03/16 04:00 97.5 76 22 112/60 98 08/03/16 00:24 96 T-piece 7.00 28 08/03/16 00:00 101.2 105 24 118/66 94 08/02/16 20:00 100.4 116 20 133/88 94 08/02/16 19:00 T-Piece 6.00 28 Humidified 08/02/16 19:00 115 08/02/16 18:22 96.4 08/02/16 15:07 120 28 129/70 95 I/O 08/02/16 08/02/16 08/02/16 08/03/16 08/03/16 08/03/16 07:00 15:00 23:00 07:00 15:00 23:00 Output Total 250 ml 350 ml 100 ml Balance -250 ml -350 ml -100 ml Output Urine Total 250 ml 350 ml 100 ml # Bowel Movements 0 0 1 Result Diagram: 08/03/16 0834 Objective Remarks GENERAL: Eyes open, closes eyes on command. No verbal communication. SKIN: Warm and dry. HEAD: Normocephalic. EYES: No scleral icterus. No injection or drainage. NECK: Supple, trachea midline. No JVD or lymphadenopathy. CARDIOVASCULAR: Regular rate and rhythm without murmurs, gallops, or rubs. RESPIRATORY: Coarse breath sounds. No accessory muscle use. GASTROINTESTINAL: Abdomen soft, non-tender, nondistended. MUSCULOSKELETAL: No cyanosis, or edema. BACK: Nontender without obvious deformity. No CVA tenderness. Procedures 01/02/16 PEG placement 01/02/16 tracheostomy 07/22/2016 Wide excision of sacral skin wound, biopsy of the cavity lining and debridement. PEG tube replacement 07/29/16 Date of Insertion: Jun 06, 2016 A/P Problem List: (1) CVA (cerebral vascular accident) ICD Code: I63.9 Status: Acute (2) A-fib ICD Code: I48.91 Status: Chronic (3) DM (diabetes mellitus) ICD Code: E11.9 Status: Chronic Assessment and Plan 60-year-old male with past medical history of paroxysmal atrial fibrillation, hypertension, stage III a non-Hodgkin's lymphoma status post a chemotherapy last year. He came to the hospital with altered mental status, facial droop. 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 Non verbal. Continue Keppra. Palliative care following. PT/OT signed off. Chronic respiratory failure: Secondary to CVA, Status post tracheostomy. Continue pulmonary toilet and neb treatments as needed. Continue bronchodilators Xopenex, trach care, Levsin prn, suctioning. On 28% Os 07/05. - ID evaluated patient on 08/01/2016. Due to increased secretion, left base opacity on CXR, pseudomonas on sputum culture, ID started Zosyn for likely 7 days. A-fib: Continue rate control, Cardizem and metoprolol with holding parameters. Echocardiogram completed in November shows preserved EF. Coumadin discontinued secondary to bleeding. Continue with ASA and prophylactic heparin dose. If persistently without any bleeding, could consider restarting Coumadin. CBC stable. Heart rate stable 07/05. Continue to monitor. History of Non-Hodgkin lymphoma: s/p brain biopsy on December 13, by Neurosurgery, Dr. Marin. Pathology consistent with acute infarct without evidence of lymphoma. Oncology signed off with no active oncology issues. DM (diabetes mellitus): HgbA1c 7%. Continue Levemir 35u daily. Continue sliding scale coverage. Monitor accuchecks and adjust the regimen as needed. Decubitus ulcer stage IV: Continue Rocephin indefinitely (on lactinex) per ID until OM is ruled out with bone biopsy and watch for further bleeding (off warfarin due to bleeding which appears to have resolved). Continue dressing changes twice daily per wound care recommendations. Continue pressure relief measures, mattress, Turning and positioning. Patient's family declined a diverting colostomy. Continue wound care. Wound is growing Klebsiella. Continue ceftriaxone. Per ID on 07/05, continue antibiotics for however long pt is here and then possibly could switch to PO upon discharge. - s/p Wide excision of sacral skin wound, biopsy of the cavity lining and debridement on 07/22/2016. - ID changed abx Unasyn to Zyvox. GI/Nutrition: Continue Nepro at 55 cc/hr per dietitian recommendations. Free water flushes. Potassium supplement. Tolerating tube feeds 07/05. DVT px - SCDs 08/03/2016: Continue current management. We will send Urine for Urinalysis. Problem Qualifiers (1) DM (diabetes mellitus): Qualified Code: E11.9 - Type 2 diabetes mellitus without complications Birdie Leal DO Aug 03, 2016 14:40
[2016-08-03 16:23] LABS: BACTERIA, URINE RARE /hpf; BLOOD, URINE MOD (NEG); GLUCOSE,URINE NEG (NEG); HYALINE CAST, URINE 1 /lpf (RARE); KETONE, URINE NEG (NEG); MUCUS URINE FEW /lpf (OCC); NITRITE,URINE NEG (NEG); PH, URINE 5.5 (5.0-8.5); SQUAMOUS EPITHELIAL CELL URINE <1 /hpf (0-5); URINE COLOR YELLOW (YELLW/STRAW)
[2016-08-03 16:24] LABS: COMMENT (UR) CATH-CULTURE IND; CULTURE IF INDICATED CATH CULTURE IND
[2016-08-03] MEDS: INSULIN DETEMIR 100 UNITS/ML VIAL SQ SCH (20:12)
[2016-08-04] VITALS (8 sets, daily range): BP systolic 103–143; BP diastolic 58–72; PULSE 93–116; RESP 20–22; TEMP 95.7–100.1; O2SAT 93–98
[2016-08-04] MEDS: ACETIC ACID 0.25% SOLN 1000 ML IRR BTL IRRIGATION SCH ×4 (03:22→22:22)
[2016-08-04] MEDS: HEPARIN SODIUM - SQ 10,000 UNITS/ML VIAL SQ SCH ×4 (03:23→22:23)
[2016-08-04] MEDS: PANTOPRAZOLE SODIUM 40 MG VIAL IV PUSH SCH ×3 (03:23→22:28)
[2016-08-04] MEDS: PIPERACIL-TAZO 4.5 GM PREMIX 100 ML IV SCH ×5 (03:23→22:22)
[2016-08-04] MEDS: LACTATED RINGER'S 1000 ML IV SCH ×2 (03:24→17:45)
[2016-08-04] MEDS: FREE WATER TUBE SCH ×6 (03:24→22:00)
[2016-08-04] MEDS: ACETAMINOPHEN/HYDROcodone 325 MG/5 MG TAB PEG SCH ×6 (03:24→18:25)
[2016-08-04] MEDS: NYSTATIN 100,000 U/GM PWD 15 GM BTL TOPICAL SCH ×2 (08:55→22:21)
[2016-08-04] MEDS: SODIUM CHLORIDE 0.65% NASAL SPRAY 45 ML BTL NASAL SCH ×2 (08:55→22:19)
[2016-08-04] MEDS: ARTIFICIAL TEARS OPTH OINT 3.5 APPLIC/3.5 GM TUBO EACH EYE SCH ×2 (08:56→22:19)
[2016-08-04] MEDS: LINEZOLID 600 MG TAB PO SCH ×2 (08:58→22:20)
[2016-08-04] MEDS: ASPIRIN 325 MG TAB TUBE SCH (08:59)
[2016-08-04] MEDS: LACTOBACILLUS ACIDOPHILUS TAB PEG SCH ×3 (08:59→18:25)
[2016-08-04] MEDS: BACITRACIN TOP OINT 15 GM TUBE TOP SCH ×2 (09:00→21:00)
[2016-08-04] MEDS: DILTIAZEM HCL 90 MG TAB PEG SCH ×4 (09:00→21:00)
[2016-08-04] MEDS: METOPROLOL TARTRATE 50 MG TAB PO SCH ×2 (09:00→21:00)
[2016-08-04] MEDS: POTASSIUM CHLORIDE 25 MEQ EFFERVESCENT TAB TUBE SCH (09:01)
[2016-08-04] MEDS: levETIRAcetam 500 MG/5 ML UDC TUBE SCH ×2 (09:02→22:22)
[2016-08-04] MEDS: INSULIN ASPART SUPPLEMENTAL SCALE SQ SCH (10:03)
--- NOTE | 2016-08-04 13:38 | HHI.PR ---
Subjective Remarks DW RN. Residual for tube feeding is coffee ground. Patient is non verbal, non interactive. Objective Vitals Vital Signs Date Time Temp Pulse Resp B/P Pulse Ox O2 Delivery O2 Flow Rate FiO2 08/04/16 12:00 100.1 99 20 105/60 94 08/04/16 10:40 97 T-Piece 6.00 28 Humidified 08/04/16 10:40 93 T-piece 6.00 28 08/04/16 08:09 97.9 107 20 116/69 98 08/04/16 04:00 99.1 104 22 143/72 94 08/04/16 01:00 99.0 116 20 114/59 93 08/03/16 20:00 97.0 97 18 107/63 98 08/03/16 19:00 99 08/03/16 19:00 97 T-Piece 6.00 28 Humidified 08/03/16 16:00 97.6 98 26 108/70 97 I/O 08/03/16 08/03/16 08/03/16 08/04/16 08/04/16 08/04/16 07:00 15:00 23:00 07:00 15:00 23:00 Intake Total 2630 ml Output Total 600 ml 1000 ml 500 ml 800 ml Balance -600 ml -1000 ml 2630 ml -500 ml -800 ml Tube Feeding 2430 ml Other 200 ml Output Urine Total 600 ml 1000 ml 500 ml 800 ml # Bowel Movements 7 2 3 Result Diagram: 08/03/16 0834 Objective Remarks GENERAL: Nonverbal and in no acute distress. Trach in place SKIN: Warm and dry. CARDIOVASCULAR: Regular rate and rhythm without murmurs, gallops, or rubs. RESPIRATORY: Diffuse coarse breath sounds. Breath sounds equal and clear to auscultation anteriorly GASTROINTESTINAL: Abdomen soft, non-tender, nondistended. PEG tube in place MUSCULOSKELETAL: No cyanosis, or edema. Neuro: Non verbal, non interactive. Eyes open. Procedures 01/02/16 PEG placement 01/02/16 tracheostomy 07/22/2016 Wide excision of sacral skin wound, biopsy of the cavity lining and debridement. PEG tube replacement 07/29/16 Date of Insertion: Jun 06, 2016 A/P Problem List: (1) CVA (cerebral vascular accident) ICD Code: I63.9 Status: Acute (2) A-fib ICD Code: I48.91 Status: Chronic (3) DM (diabetes mellitus) ICD Code: E11.9 Status: Chronic Assessment and Plan 60-year-old male with past medical history of paroxysmal atrial fibrillation, hypertension, stage III a non-Hodgkin's lymphoma status post a chemotherapy last year. He came to the hospital with altered mental status, facial droop. Patient with significant deficit from CVA. 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 Significant cognitive deficit. 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 -Continue Keppra . Palliative care following. Monitor Keppra level periodically. -cont Paxil as per family request. PT/OT signed off. Chronic respiratory failure: Secondary to CVA, Status post tracheostomy. Continue pulmonary toilet and neb treatments as needed. Continue bronchodilators Xopenex, trach care, Levsin prn, suctioning. On 28% Os 07/05. - ID evaluated patient on 08/01/2016. Due to increased secretion, left base opacity on CXR, pseudomonas on sputum culture, ID started Zosyn for likely 7 days. A-fib: Continue rate control, Cardizem and metoprolol with holding parameters. Echocardiogram completed in November shows preserved EF. Coumadin discontinued secondary to bleeding. Continue with ASA and prophylactic heparin dose. Continue to monitor. History of Non-Hodgkin lymphoma: s/p brain biopsy on December 13, by Neurosurgery, Dr. Marin. Pathology consistent with acute infarct without evidence of lymphoma. Oncology signed off with no active oncology issues. DM (diabetes mellitus): HgbA1c 7%. Continue Levemir 35u daily. Continue sliding scale coverage. Monitor accuchecks and adjust the regimen as needed. Decubitus ulcer stage IV: Continue Rocephin indefinitely (on lactinex) per ID until OM is ruled out with bone biopsy and watch for further bleeding (off warfarin due to bleeding which appears to have resolved). Continue dressing changes twice daily per wound care recommendations. Continue pressure relief measures, mattress, Turning and positioning. Patient's family declined a diverting colostomy. Continue wound care. Wound is growing Klebsiella. Continue ceftriaxone. Per ID on 07/05, continue antibiotics for however long pt is here and then possibly could switch to PO upon discharge. - s/p Wide excision of sacral skin wound, biopsy of the cavity lining and debridement on 07/22/2016. - ID changed abx Unasyn to Zyvox. Gastric ulcers and reflux esophagitis: Patient has known gastric ulcers from EGD on 07/30/16. There is coffee-ground residual, concern for gastric bleeding. Reconsult GI. Continue PPI with Protonix IV 40 mg twice daily. Check labs to ensure H&H is stable. GI/Nutrition: Continue Nepro at 55 cc/hr per dietitian recommendations. Free water flushes. Potassium supplement. Tolerating tube feeds 07/05. Patient is having diarrhea as well. Discussed with RN. Nicolas to use a rectal tube given the sacral wound. DVT px - SCDs Discharge Planning Case management following. Appreciate palliative care following. Family have not been able to make a decision regarding discharge. They would like him to come home but they are unable to take care of him. So far they have refused long-term placement. CM following Problem Qualifiers (1) DM (diabetes mellitus): Qualified Code: E11.9 - Type 2 diabetes mellitus without complications Jw Bah MD Aug 04, 2016 13:38 than a large surgery - seen by Dr. Mars- vascular surgery - - the wound and the patients overall poor prognosis. hospice would be appropriate. Palliative care is following. cultures +klebsiella. pt on abx per ID. no anticoagulation due to bleeding from the wound. cont wound care (packing daily).- On Ceftriaxone per Dr. Liu Discussed with family, including patient's cousin who is a physician in [place]. Dr. Gonzalez offered to discuss with plastic surgery getting a tissue diagnosis to rule out cancer if it would put the patient's family at ease, however pursuing aggressive surgery overlooks the patient's overall poor neurologic prognosis. The patient would not be likely to heal from this large wound given his immobility. - monitor CBC- and H stable - family at bedside- wants to pursue aggressive- they are not ready for hospice at this point - Palliative care involved - 04/23- made alternative code surgery- diverting colostomy cancelled per CRS 06/06 - d/w staff nurse- needed a consent from another family member- family undecided. They do not want surgery, -Fluid overload/edema with positive fluid balance -generalized edema- continues to improve lasix 20 mg IV daily, with albumin, k-lyte 25 meq PEG BID, monitor I/O . ff BMP BMP periodically -A-fib: rate better controlled- continue Lopressor, Cardizem 90 mg qid. NO Coumadin due to significant bleeding from the sacral wound. Respiratory failure: Secondary to CVA. Patient is status post tracheostomy. Pulmonary following. on Fi02 - now at 28% - since 05/10- tolerating well- RT ff along with us- appreciated - Levsin PRN secretions. needs suctioning renew duoneb q 6 Xopenex q 2 prn Anemia of acute blood loss - secondary to bleeding from the wound. S/P transfuse 2 units pRBCs H and H stable CRS- surgery cancelled - -GI/Nutrition: Previous PEG tube exchanged by GI at bedside 03/30/2016. -Depression: Continue Paxil. -Coccyx pressure ulcer- cont wound care. -History of Non-Hodgkin lymphoma: s/p brain biopsy on December 13, by Neurosurgery, Dr. Marin, Pathology consistent with acute infarct without evidence of lymphoma -Seen by Oncology, Dr. Whyte, who has signed off -DM: Hemoglobin A1c is 7.0. Continue Levemir with sliding scale insulin- monitor and adjust the regimen as needed. - MRSA in the sputum, tracheobronchitis. Chest x-ray 04/05 was clear. completed course of zyvox. mild hypokalemia; replaced. DVT prophylaxis:SCDs. d/w CM- mother wants more rehab- - no rehab potential family refused diverting colostomy to hep with sacral decubitus healing or at least prevent it from worsening CM requested to look into home health care nursing/wound care or nursing facility. Family currently refusing long-term rehabilitation or home health. Discharge Planning Case management following. Appreciate palliative care following. Family have not been able to make a decision regarding discharge. They would like him to come home but they are unable to take care of him. So far they have refused long-term placement. CM following Problem Qualifiers (1) DM (diabetes mellitus): Qualified Code: E11.9 - Type 2 diabetes mellitus without complications Jw Bah MD Aug 04, 2016 13:38
[2016-08-04 16:54] LABS: AUTOMATED NEUTROPHIL # 6.6 TH/MM3 (1.8-7.7); BASOPHIL % 0.5 % (0.0-2.0); EOSINOPHIL # 0.5 TH/MM3 (0-0.4); EOSINOPHIL % 5.7 % (0.0-4.0); HEMATOCRIT 28.7 % (39.0-51.0); LYMPH % 10.3 % (9.0-44.0); LYMPHOCYTE # 0.9 TH/MM3 (1.0-4.8); MEAN CELL VOLUME 75.1 FL (80.0-100.0); MEAN CORPUSCULAR HEMOGLOBIN 23.4 PG (27.0-34.0); MEAN CORPUSCULAR HGB CONC 31.1 % (32.0-36.0); MONO % 7.1 % (0.0-8.0); NEUT % 76.4 % (16.0-70.0); PLATELET COUNT 238 TH/MM3 (150-450); RED BLOOD COUNT 3.82 MIL/MM3 (4.50-5.90); RED CELL DISTRIBUTION WIDTH 19.5 % (11.6-17.2); WHITE BLOOD COUNT 8.7 TH/MM3 (4.0-11.0)
[2016-08-04 16:55] LABS: HEMO FLAGS AUTO DIFF
[2016-08-04 17:04] LABS: PLATELET ESTIMATE SMEAR NORMAL (NORMAL); PLATELET MORPHOLOGY NORMAL (NORMAL); SCAN/DIFF AUTO DIFF CONFIRMED
[2016-08-04 17:12] LABS: BICARBONATE 28.7 MEQ/L (21.0-32.0); POTASSIUM 4.3 MEQ/L (3.5-5.1)
--- NOTE | 2016-08-04 21:48 | HHI.GIFU ---
Subjective Remarks Patient intubated unresponsive there apparently was a concern about the color of the return from his G-tube when checking for residuals that he may contain coffee-ground Objective Vitals I&O Vital Signs Date Time Temp Pulse Resp B/P Pulse Ox O2 Delivery O2 Flow Rate FiO2 08/04/16 16:00 95.7 93 20 115/58 96 08/04/16 12:00 100.1 99 20 105/60 94 08/04/16 10:40 97 T-Piece 6.00 28 Humidified 08/04/16 10:40 93 T-piece 6.00 28 08/04/16 08:09 97.9 107 20 116/69 98 08/04/16 08:00 109 08/04/16 04:00 99.1 104 22 143/72 94 08/04/16 01:00 99.0 116 20 114/59 93 I/O 08/03/16 08/03/16 08/03/16 08/04/16 08/04/16 08/04/16 07:00 15:00 23:00 07:00 15:00 23:00 Intake Total 2630 ml Output Total 600 ml 1000 ml 500 ml 800 ml Balance -600 ml -1000 ml 2630 ml -500 ml -800 ml Tube Feeding 2430 ml Other 200 ml Output Urine Total 600 ml 1000 ml 500 ml 800 ml # Bowel Movements 7 2 3 Laboratory Laboratory Tests Test 08/04/16 16:20 White Blood Count 8.7 Red Blood Count 3.82 Hemoglobin 8.9 Hematocrit 28.7 Mean Corpuscular Volume 75.1 Mean Corpuscular Hemoglobin 23.4 Mean Corpuscular Hemoglobin 31.1 Concent Red Cell Distribution Width 19.5 Platelet Count 238 Mean Platelet Volume 8.7 Neutrophils (%) (Auto) 76.4 Lymphocytes (%) (Auto) 10.3 Monocytes (%) (Auto) 7.1 Eosinophils (%) (Auto) 5.7 Basophils (%) (Auto) 0.5 Neutrophils # (Auto) 6.6 Lymphocytes # (Auto) 0.9 Monocytes # (Auto) 0.6 Eosinophils # (Auto) 0.5 Basophils # (Auto) 0.0 CBC Comment AUTO DIFF Differential Comment AUTO DIFF CONFIRMED Platelet Estimate NORMAL Platelet Morphology Comment NORMAL Sodium Level 137 Potassium Level 4.3 Chloride Level 101 Carbon Dioxide Level 28.7 Anion Gap 7 Blood Urea Nitrogen 20 Creatinine 0.78 Estimat Glomerular Filtration 102 Rate Random Glucose 134 Calcium Level 8.7 Date/Time Procedure Status Source Growth 08/03/16 16:10 Urine Culture - Preliminary Resulted Urine Catheterized Urine NO GROWTH IN 24 HOURS. Physical Exam HEENT: Normocephalic; atraumatic; no jaundice. CHEST: Scattered rhonchi. Tracheostomy, to TBar CARDIAC: RRR. ABDOMEN: Soft, round, nondistended, nontender; no hepatosplenomegaly; bowel sounds are present in all four quadrants. GJ tube site clean with dark green return consistent with gastric juices no evidence of any blood or bleeding EXTREMITIES: Generalized edema. SKIN: Normal; no rash; no jaundice. CLIENT REPRESENTATIVE: Resting with eyes open, does not follow commands Assessment and Plan Plan ASSESSMENT: Concerns about coffee-ground return but in fact I see is normal as far as return of gastric juices his hemoglobin is stable and there has been no melenic or bloody bowel movements and vital signs are stable the patient is also tolerating well his tube feeds It was noted that he had gastric ulcer on his most recent EGD a few days ago and there was no visible vessel We will continue with PPI close monitoring and transfusion as needed If there is any evidence of any active bleeding we will pursue an EGD Sampson Gibbons MD Aug 04, 2016 21:48
[2016-08-04] MEDS: INSULIN DETEMIR 100 UNITS/ML VIAL SQ SCH (22:20)
[2016-08-05] VITALS (8 sets, daily range): BP systolic 103–126; BP diastolic 58–74; PULSE 89–98; RESP 18–22; TEMP 97.7–99.7; O2SAT 94–100
[2016-08-05] MEDS: ACETAMINOPHEN/HYDROcodone 325 MG/5 MG TAB PEG SCH ×4 (00:48→18:36)
[2016-08-05] MEDS: PIPERACIL-TAZO 4.5 GM PREMIX 100 ML IV SCH ×4 (04:00→22:05)
[2016-08-05] MEDS: FREE WATER TUBE SCH ×6 (04:00→20:00)
[2016-08-05] MEDS: LACTATED RINGER'S 1000 ML IV SCH ×2 (06:00→17:13)
[2016-08-05] MEDS: ACETIC ACID 0.25% SOLN 1000 ML IRR BTL IRRIGATION SCH ×3 (06:28→22:05)
[2016-08-05] MEDS: HEPARIN SODIUM - SQ 10,000 UNITS/ML VIAL SQ SCH ×3 (06:29→22:05)
[2016-08-05 08:34] LABS: BICARBONATE 27.8 MEQ/L (21.0-32.0); POTASSIUM 3.9 MEQ/L (3.5-5.1)
[2016-08-05 08:38] LABS: HEMATOCRIT 26.7 % (39.0-51.0); MEAN CELL VOLUME 74.6 FL (80.0-100.0); MEAN CORPUSCULAR HEMOGLOBIN 23.4 PG (27.0-34.0); MEAN CORPUSCULAR HGB CONC 31.4 % (32.0-36.0); PLATELET COUNT 221 TH/MM3 (150-450); RED BLOOD COUNT 3.58 MIL/MM3 (4.50-5.90); RED CELL DISTRIBUTION WIDTH 19.1 % (11.6-17.2); WHITE BLOOD COUNT 7.8 TH/MM3 (4.0-11.0)
[2016-08-05 08:48] LABS: REVIEW FLAG FINAL
[2016-08-05] MEDS: BACITRACIN TOP OINT 15 GM TUBE TOP SCH ×2 (09:00→22:06)
[2016-08-05] MEDS: METOPROLOL TARTRATE 50 MG TAB PO SCH ×2 (09:00→22:04)
[2016-08-05] MEDS: DILTIAZEM HCL 90 MG TAB PEG SCH ×4 (09:00→22:03)
[2016-08-05] MEDS: SODIUM CHLORIDE 0.65% NASAL SPRAY 45 ML BTL NASAL SCH ×2 (09:00→22:03)
[2016-08-05] MEDS: ASPIRIN 325 MG TAB TUBE SCH (09:04)
[2016-08-05] MEDS: levETIRAcetam 500 MG/5 ML UDC TUBE SCH ×2 (09:04→22:04)
[2016-08-05] MEDS: LACTOBACILLUS ACIDOPHILUS TAB PEG SCH ×3 (09:04→17:15)
[2016-08-05] MEDS: LINEZOLID 600 MG TAB PO SCH ×2 (09:04→22:03)
[2016-08-05] MEDS: POTASSIUM CHLORIDE 25 MEQ EFFERVESCENT TAB TUBE SCH (09:05)
[2016-08-05] MEDS: PANTOPRAZOLE SODIUM 40 MG VIAL IV PUSH SCH ×2 (09:05→22:04)
[2016-08-05] MEDS: NYSTATIN 100,000 U/GM PWD 15 GM BTL TOPICAL SCH ×2 (09:06→22:06)
[2016-08-05] MEDS: ARTIFICIAL TEARS OPTH OINT 3.5 APPLIC/3.5 GM TUBO EACH EYE SCH ×2 (09:07→22:03)
--- NOTE | 2016-08-05 11:30 | HHI.GIFU ---
Subjective Remarks Resting in bed in no distress. Tolerating TF. No obvious active bleeding. ( Cielo Sorensen) Objective Vitals I&O Vital Signs Date Time Temp Pulse Resp B/P Pulse Ox O2 Delivery O2 Flow Rate FiO2 08/05/16 09:45 98 Trach Collar 6.00 28 08/05/16 08:49 95 T-Piece 6.00 28 Humidified 08/05/16 08:00 98.1 89 18 103/58 97 08/05/16 04:00 98.9 93 20 126/74 95 08/05/16 00:00 98.5 98 22 111/65 95 08/04/16 22:30 95 T-Piece 6.00 28 Humidified 08/04/16 20:00 93 08/04/16 20:00 98.9 93 22 103/60 94 08/04/16 16:00 95.7 93 20 115/58 96 08/04/16 12:00 100.1 99 20 105/60 94 I/O 08/04/16 08/04/16 08/04/16 08/05/16 08/05/16 08/05/16 07:00 15:00 23:00 07:00 15:00 23:00 Intake Total 608 ml Output Total 500 ml 800 ml 400 ml 400 ml Balance -500 ml -800 ml -400 ml 208 ml Tube Feeding 608 ml Output Urine Total 500 ml 800 ml 400 ml 400 ml # Bowel Movements 3 0 1 Laboratory Laboratory Tests Test 08/04/16 08/05/16 16:20 07:05 White Blood Count 8.7 7.8 Red Blood Count 3.82 3.58 Hemoglobin 8.9 8.4 Hematocrit 28.7 26.7 Mean Corpuscular Volume 75.1 74.6 Mean Corpuscular Hemoglobin 23.4 23.4 Mean Corpuscular Hemoglobin 31.1 31.4 Concent Red Cell Distribution Width 19.5 19.1 Platelet Count 238 221 Mean Platelet Volume 8.7 9.0 Neutrophils (%) (Auto) 76.4 Lymphocytes (%) (Auto) 10.3 Monocytes (%) (Auto) 7.1 Eosinophils (%) (Auto) 5.7 Basophils (%) (Auto) 0.5 Neutrophils # (Auto) 6.6 Lymphocytes # (Auto) 0.9 Monocytes # (Auto) 0.6 Eosinophils # (Auto) 0.5 Basophils # (Auto) 0.0 CBC Comment AUTO DIFF Differential Comment AUTO DIFF CONFIRMED Platelet Estimate NORMAL Platelet Morphology Comment NORMAL Sodium Level 137 137 Potassium Level 4.3 3.9 Chloride Level 101 99 Carbon Dioxide Level 28.7 27.8 Anion Gap 7 10 Blood Urea Nitrogen 20 18 Creatinine 0.78 0.73 Estimat Glomerular Filtration 102 110 Rate Random Glucose 134 114 Calcium Level 8.7 8.4 Date/Time Procedure Status Source Growth 08/03/16 16:10 Urine Culture - Final Complete Urine Catheterized Urine NO GROWTH IN 48 HOURS. Imaging Last Impressions Chest X-Ray 08/01/16 0000 Signed Impressions: Service Date/Time: July 13:51 - CONCLUSION: 1. Stable mild airspace opacity at the left lung base representing either atelectasis or airspace consolidation. 2. New subsegmental atelectasis at the right lung base. Glen Gordon MD Abdomen/Pelvis CT 04/12/16 0000 Signed Impressions: Service Date/Time: Tuesday, April 12, 2016 20:52 - CONCLUSION: 1. 6.4 cm necrotic mass or abscess in the soft tissues posteriorly just below the sacrum associated with some bony destructive change of the lower most sacrum and coccyx with inflammatory changes extending into the ischiorectal fossa and into the presacral retroperitoneum predominantly on the left side. There is associated fairly marked mural thickening of the anal verge and rectum. 2. There is gastrostomy and Arevalo catheter present. Stable abdominal aortic aneurysm. Durga Dotson MD Head Magnetic Resonance Angiography 03/05/16 0000 Signed Impressions: Service Date/Time: Saturday, March 05, 2016 09:26 - CONCLUSION: Persistent high-grade subtotal occlusive stenotic lesions in the distal right vertebral artery and proximal basilar artery with significant improvement in flow and recanalization following initial presentation of thrombosis. Stable interstitial circulation without significant stenosis. 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 There is decreasing restricted diffusion and increasing loss of volume characteristic of a subacute to chronic infarct. No evidence of acute infarct, acute hemorrhage mass or edema. Ernesto Kulkarni MD Head CT 01/16/16 0000 Signed Impressions: Service Date/Time: Saturday, January 16, 2016 10:51 - CONCLUSION: No extensive low density in the brainstem colin more prominent in the right the left extending into the right middle cerebellar peduncle consistent with brainstem infarct nonhemorrhagic acute Wellington West MD Abdomen X-Ray 01/14/16 0000 Signed Impressions: Service Date/Time: Thursday, January 14, 2016 10:19 - CONCLUSION: Moderate stool; otherwise, negative. 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 No evidence of carotid stenosis. Glen Zamora MD Head/Brain Mag Res Venography 12/22/15 0000 Signed Impressions: Service Date/Time: Tuesday, December 22, 2015 09:22 - CONCLUSION: Normal MRV. Jonel Jones Jr., MD Physical Exam HEENT: Normocephalic; atraumatic; no jaundice. CHEST: Scattered rhonchi. Tracheostomy, to TBar CARDIAC: RRR. ABDOMEN: Soft, round, nondistended, nontender; no hepatosplenomegaly; bowel sounds are present in all four quadrants. GJ tube site clean EXTREMITIES: Generalized edema. SKIN: Normal; no rash; no jaundice. BUSINESS BANKING REPRESENTATIVE: Resting with eyes open, does not follow commands (Cielo Sorensen) Assessment and Plan Plan ASSESSMENT: - Reconsulted for concerns about coffee-ground return, but gastric secretions were aspirated without evidence of GI bleeding. He is tolerating TF and not having any melanotic or bloody bowel movements. HH slowly trending down, but no significant drop. S/P EGD (07/21/16)---> gastric ulcer, reflux esophagitis , residual gastric juiced. HH 8.4/26.7. Cont. PPI. Monitor HH. Rpt. EGD in 2-3 months. PLAN: - TF as tolerated - PPI - Monitor HH - Transfuse as necessary - Monitor for active bleeding - EGD in 2-3 months, sooner if active bleeding - Pt seen and examined by Dr. Urena and myself and this note is written on his behalf (Cielo Sorensen) Physician Comments No active bleeding reprted. H/H stable. Continue Protonix, avoid NSAIDs , will sign off, reconsult as needed. Fu in 03 months as recommended. Thank you ( Ramana Urena MD) Cielo Sorensen Aug 05, 2016 11:30 Ramana Urena MD Aug 05, 2016 15:47
[2016-08-05] MEDS: INSULIN ASPART SUPPLEMENTAL SCALE SQ SCH (13:56)
--- NOTE | 2016-08-05 14:29 | HHI.PR ---
Subjective Remarks No change in status. DW mother. No new concerns. Objective Vitals Vital Signs Date Time Temp Pulse Resp B/P Pulse Ox O2 Delivery O2 Flow Rate FiO2 08/05/16 12:00 97.7 94 20 103/61 94 08/05/16 09:45 98 Trach Collar 6.00 28 08/05/16 08:49 95 T-Piece 6.00 28 Humidified 08/05/16 08:00 98.1 89 18 103/58 97 08/05/16 04:00 98.9 93 20 126/74 95 08/05/16 00:00 98.5 98 22 111/65 95 08/04/16 22:30 95 T-Piece 6.00 28 Humidified 08/04/16 20:00 93 08/04/16 20:00 98.9 93 22 103/60 94 08/04/16 16:00 95.7 93 20 115/58 96 I/O 08/04/16 08/04/16 08/04/16 08/05/16 08/05/16 08/05/16 07:00 15:00 23:00 07:00 15:00 23:00 Intake Total 608 ml Output Total 500 ml 800 ml 400 ml 400 ml Balance -500 ml -800 ml -400 ml 208 ml Tube Feeding 608 ml Output Urine Total 500 ml 800 ml 400 ml 400 ml # Bowel Movements 3 0 1 Result Diagram: 08/05/1670408/05/16704 Objective Remarks GENERAL: Nonverbal and in no acute distress. Trach in place SKIN: Warm and dry. CARDIOVASCULAR: Regular rate and rhythm without murmurs, gallops, or rubs. RESPIRATORY: Diffuse coarse breath sounds. Breath sounds equal and clear to auscultation anteriorly GASTROINTESTINAL: Abdomen soft, non-tender, nondistended. PEG tube in place MUSCULOSKELETAL: No cyanosis, or edema. Neuro: Non verbal, non interactive. Eyes open. Procedures 01/02/16 PEG placement 01/02/16 tracheostomy 07/22/2016 Wide excision of sacral skin wound, biopsy of the cavity lining and debridement. PEG tube replacement 07/29/16 Date of Insertion: Jun 06, 2016 A/P Problem List: (1) CVA (cerebral vascular accident) ICD Code: I63.9 Status: Acute (2) A-fib ICD Code: I48.91 Status: Chronic (3) DM (diabetes mellitus) ICD Code: E11.9 Status: Chronic Assessment and Plan 60-year-old male with past medical history of paroxysmal atrial fibrillation, hypertension, stage III a non-Hodgkin's lymphoma status post a chemotherapy last year. He came to the hospital with altered mental status, facial droop. Patient with significant deficit from CVA. 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 Significant cognitive deficit. 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 -Continue Keppra . Palliative care following. Monitor Keppra level periodically. -cont Paxil as per family request. PT/OT signed off. Chronic respiratory failure: Secondary to CVA, Status post tracheostomy. Continue pulmonary toilet and neb treatments as needed. Continue bronchodilators Xopenex, trach care, Levsin prn, suctioning. On 28% Os 07/05. - ID evaluated patient on 08/01/2016. Due to increased secretion, left base opacity on CXR, pseudomonas on sputum culture, ID started Zosyn for likely 7 days. A-fib: Continue rate control, Cardizem and metoprolol with holding parameters. Echocardiogram completed in November shows preserved EF. Coumadin discontinued secondary to bleeding. Continue with ASA and prophylactic heparin dose. Continue to monitor. History of Non-Hodgkin lymphoma: s/p brain biopsy on December 13, by Neurosurgery, Dr. Marin. Pathology consistent with acute infarct without evidence of lymphoma. Oncology signed off with no active oncology issues. DM (diabetes mellitus): HgbA1c 7%. Continue Levemir 35u daily. Continue sliding scale coverage. Monitor accuchecks and adjust the regimen as needed. Decubitus ulcer stage IV: Continue Rocephin indefinitely (on lactinex) per ID until OM is ruled out with bone biopsy and watch for further bleeding (off warfarin due to bleeding which appears to have resolved). Continue dressing changes twice daily per wound care recommendations. Continue pressure relief measures, mattress, Turning and positioning. Patient's family declined a diverting colostomy. Continue wound care. Wound is growing Klebsiella. Continue ceftriaxone. Per ID on 07/05, continue antibiotics for however long pt is here and then possibly could switch to PO upon discharge. - s/p Wide excision of sacral skin wound, biopsy of the cavity lining and debridement on 07/22/2016. - ID changed abx Unasyn to Zyvox. Gastric ulcers and reflux esophagitis: Patient has known gastric ulcers from EGD on 07/30/16. There was concern for coffee ground residual. Patient evaluated by GI. Advised to continue to monit. Continue PPI with Protonix IV 40 mg twice daily. Follow H&H in a couple of days. GI/Nutrition: Continue Nepro at 55 cc/hr per dietitian recommendations. Free water flushes. Potassium supplement. Tolerating tube feeds 07/05. Patient is having diarrhea as well. Discussed with RN. Valenzuela to use a rectal tube given the sacral wound. DVT px - SCDs Problem Qualifiers (1) DM (diabetes mellitus): Qualified Code: E11.9 - Type 2 diabetes mellitus without complications Jw Bah MD Aug 05, 2016 14:29 Jw Bah MD Aug 05, 2016 14:29
[2016-08-05] MEDS: INSULIN DETEMIR 100 UNITS/ML VIAL SQ SCH (22:10)
[2016-08-06] VITALS (10 sets, daily range): BP systolic 5–134; BP diastolic 62–76; PULSE 84–109; RESP 18–20; TEMP 96.3–100.4; O2SAT 94–99
[2016-08-06] MEDS: ACETAMINOPHEN/HYDROcodone 325 MG/5 MG TAB PEG SCH ×4 (00:31→18:22)
[2016-08-06] MEDS: FREE WATER TUBE SCH ×6 (04:00→20:00)
[2016-08-06] MEDS: PIPERACIL-TAZO 4.5 GM PREMIX 100 ML IV SCH ×4 (04:25→23:15)
[2016-08-06] MEDS: ACETAMINOPHEN 650 MG/20.3 ML UDC TUBE PRN (04:29)
[2016-08-06] MEDS: LACTATED RINGER'S 1000 ML IV SCH ×2 (05:42→17:45)
[2016-08-06] MEDS: ACETIC ACID 0.25% SOLN 1000 ML IRR BTL IRRIGATION SCH ×3 (05:42→22:58)
[2016-08-06] MEDS: HEPARIN SODIUM - SQ 10,000 UNITS/ML VIAL SQ SCH ×3 (05:43→22:59)
[2016-08-06] MEDS: METOPROLOL TARTRATE 50 MG TAB PO SCH ×2 (08:23→22:46)
[2016-08-06] MEDS: LINEZOLID 600 MG TAB PO SCH ×2 (08:23→22:45)
[2016-08-06] MEDS: LACTOBACILLUS ACIDOPHILUS TAB PEG SCH ×3 (08:23→18:21)
[2016-08-06] MEDS: levETIRAcetam 500 MG/5 ML UDC TUBE SCH ×2 (08:23→22:45)
[2016-08-06] MEDS: DILTIAZEM HCL 90 MG TAB PEG SCH ×5 (08:23→22:45)
[2016-08-06] MEDS: POTASSIUM CHLORIDE 25 MEQ EFFERVESCENT TAB TUBE SCH (08:24)
[2016-08-06] MEDS: ARTIFICIAL TEARS OPTH OINT 3.5 APPLIC/3.5 GM TUBO EACH EYE SCH ×2 (08:24→22:44)
[2016-08-06] MEDS: BACITRACIN TOP OINT 15 GM TUBE TOP SCH ×2 (08:25→22:47)
[2016-08-06] MEDS: NYSTATIN 100,000 U/GM PWD 15 GM BTL TOPICAL SCH ×2 (08:25→22:58)
[2016-08-06] MEDS: SODIUM CHLORIDE 0.65% NASAL SPRAY 45 ML BTL NASAL SCH ×2 (08:25→22:44)
[2016-08-06] MEDS: ASPIRIN 325 MG TAB TUBE SCH (08:42)
[2016-08-06] MEDS: PANTOPRAZOLE SODIUM 40 MG VIAL IV PUSH SCH ×2 (10:30→22:59)
[2016-08-06] MEDS: INSULIN ASPART SUPPLEMENTAL SCALE SQ SCH (11:35)
--- NOTE | 2016-08-06 14:07 | HHI.PR ---
Subjective Remarks No change in clinical status. DW mother. No new concerns. Objective Vitals Vital Signs Date Time Temp Pulse Resp B/P Pulse Ox O2 Delivery O2 Flow Rate FiO2 08/06/16 12:38 18 08/06/16 12:00 96.3 88 18 105/68 96 08/06/16 10:49 103 08/06/16 10:22 99 T-piece 28 08/06/16 08:00 97.5 95 18 118/62 97 08/06/16 04:00 99.0 109 20 119/70 94 08/06/16 02:13 92 08/06/16 00:00 100.4 101 19 134/64 94 08/05/16 21:24 99.7 98 18 117/67 100 08/05/16 20:00 98 T-Piece 6.00 28 Humidified 08/05/16 18:32 97 T-piece 6.00 28 08/05/16 16:00 99.6 91 20 109/66 97 I/O 08/05/16 08/05/16 08/05/16 08/06/16 08/06/16 08/06/16 07:00 15:00 23:00 07:00 15:00 23:00 Intake Total 608 ml Output Total 400 ml 500 ml 500 ml Balance 208 ml -500 ml -500 ml Tube Feeding 608 ml Output Urine Total 400 ml 500 ml 500 ml # Bowel Movements 1 1 2 Result Diagram: 08/05/1670408/05/16704 Objective Remarks GENERAL: Nonverbal and in no acute distress. Trach in place SKIN: Warm and dry. CARDIOVASCULAR: Regular rate and rhythm without murmurs, gallops, or rubs. RESPIRATORY: Diffuse coarse breath sounds. Breath sounds equal and clear to auscultation anteriorly GASTROINTESTINAL: Abdomen soft, non-tender, nondistended. PEG tube in place MUSCULOSKELETAL: No cyanosis, or edema. Neuro: Non verbal, non interactive. Eyes open. Procedures 01/02/16 PEG placement 01/02/16 tracheostomy 07/22/2016 Wide excision of sacral skin wound, biopsy of the cavity lining and debridement. PEG tube replacement 07/29/16 Date of Insertion: Jun 06, 2016 A/P Problem List: (1) CVA (cerebral vascular accident) ICD Code: I63.9 Status: Acute (2) A-fib ICD Code: I48.91 Status: Chronic (3) DM (diabetes mellitus) ICD Code: E11.9 Status: Chronic Assessment and Plan 60-year-old male with past medical history of paroxysmal atrial fibrillation, hypertension, stage III a non-Hodgkin's lymphoma status post a chemotherapy last year. He came to the hospital with altered mental status, facial droop. Patient with significant deficit from CVA. 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 Significant cognitive deficit. 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 -Continue Keppra . Palliative care following. Monitor Keppra level periodically. -cont Paxil as per family request. PT/OT signed off. Chronic respiratory failure: Secondary to CVA, Status post tracheostomy. Continue pulmonary toilet and neb treatments as needed. Continue bronchodilators Xopenex, trach care, Levsin prn, suctioning. On 28% Os 07/05. - ID evaluated patient on 08/01/2016. Due to increased secretion, left base opacity on CXR, pseudomonas on sputum culture, ID started Zosyn for likely 7 days. A-fib: Continue rate control, Cardizem and metoprolol with holding parameters. Echocardiogram completed in November shows preserved EF. Coumadin discontinued secondary to bleeding. Continue with ASA and prophylactic heparin dose. Continue to monitor. History of Non-Hodgkin lymphoma: s/p brain biopsy on December 13, by Neurosurgery, Dr. Marin. Pathology consistent with acute infarct without evidence of lymphoma. Oncology signed off with no active oncology issues. DM (diabetes mellitus): HgbA1c 7%. Continue Levemir 35u daily. Continue sliding scale coverage. Monitor accuchecks and adjust the regimen as needed. Decubitus ulcer stage IV: Continue Rocephin indefinitely (on lactinex) per ID until OM is ruled out with bone biopsy and watch for further bleeding (off warfarin due to bleeding which appears to have resolved). Continue dressing changes twice daily per wound care recommendations. Continue pressure relief measures, mattress, Turning and positioning. Patient's family declined a diverting colostomy. Continue wound care. Wound is growing Klebsiella. Continue ceftriaxone. Per ID on 07/05, continue antibiotics for however long pt is here and then possibly could switch to PO upon discharge. - s/p Wide excision of sacral skin wound, biopsy of the cavity lining and debridement on 07/22/2016. - ID changed abx Unasyn to Zyvox. Gastric ulcers and reflux esophagitis: Patient has known gastric ulcers from EGD on 07/30/16. There was concern for coffee ground residual. Patient evaluated by GI. Advised to continue to monit. Continue PPI with Protonix IV 40 mg twice daily. Follow H&H tomorrow GI/Nutrition: Continue Nepro at 55 cc/hr per dietitian recommendations. Free water flushes. Potassium supplement. Tolerating tube feeds 07/05. Patient is having diarrhea as well. Discussed with RN. Nicolas to use a rectal tube given the sacral wound. DVT px - SCDs Problem Qualifiers (1) DM (diabetes mellitus): Qualified Code: E11.9 - Type 2 diabetes mellitus without complications Jw Bah MD Aug 06, 2016 14:07
[2016-08-06] MEDS: INSULIN DETEMIR 100 UNITS/ML VIAL SQ SCH (22:46)
[2016-08-07] VITALS (10 sets, daily range): BP systolic 102–120; BP diastolic 62–74; PULSE 79–98; RESP 18–22; TEMP 96.2–99.1; O2SAT 97–100
[2016-08-07] MEDS: ACETAMINOPHEN/HYDROcodone 325 MG/5 MG TAB PEG SCH ×5 (00:12→23:03)
[2016-08-07] MEDS: FREE WATER TUBE SCH ×7 (04:00→23:03)
[2016-08-07] MEDS: HEPARIN SODIUM - SQ 10,000 UNITS/ML VIAL SQ SCH ×3 (05:14→21:02)
[2016-08-07] MEDS: PIPERACIL-TAZO 4.5 GM PREMIX 100 ML IV SCH ×2 (05:14→09:37)
[2016-08-07] MEDS: ACETIC ACID 0.25% SOLN 1000 ML IRR BTL IRRIGATION SCH ×3 (05:15→21:06)
[2016-08-07] MEDS: LACTATED RINGER'S 1000 ML IV SCH ×2 (05:15→17:09)
[2016-08-07 07:24] LABS: HEMATOCRIT 26.5 % (39.0-51.0); MEAN CELL VOLUME 73.6 FL (80.0-100.0); MEAN CORPUSCULAR HEMOGLOBIN 23.8 PG (27.0-34.0); MEAN CORPUSCULAR HGB CONC 32.4 % (32.0-36.0); PLATELET COUNT 267 TH/MM3 (150-450); RED CELL DISTRIBUTION WIDTH 19.1 % (11.6-17.2); WHITE BLOOD COUNT 9.4 TH/MM3 (4.0-11.0)
[2016-08-07 07:25] LABS: REVIEW FLAG FINAL
[2016-08-07 07:52] LABS: BICARBONATE 26.3 MEQ/L (21.0-32.0); POTASSIUM 4.2 MEQ/L (3.5-5.1)
[2016-08-07] MEDS: INSULIN ASPART SUPPLEMENTAL SCALE SQ SCH (08:00)
[2016-08-07] MEDS: BACITRACIN TOP OINT 15 GM TUBE TOP SCH ×2 (09:00→21:08)
[2016-08-07] MEDS: PANTOPRAZOLE SODIUM 40 MG VIAL IV PUSH SCH ×2 (09:34→21:01)
[2016-08-07] MEDS: levETIRAcetam 500 MG/5 ML UDC TUBE SCH ×2 (09:34→21:01)
[2016-08-07] MEDS: POTASSIUM CHLORIDE 25 MEQ EFFERVESCENT TAB TUBE SCH (09:34)
[2016-08-07] MEDS: DILTIAZEM HCL 90 MG TAB PEG SCH ×4 (09:35→21:01)
[2016-08-07] MEDS: METOPROLOL TARTRATE 50 MG TAB PO SCH ×2 (09:35→21:02)
[2016-08-07] MEDS: LACTOBACILLUS ACIDOPHILUS TAB PEG SCH ×3 (09:35→17:02)
[2016-08-07] MEDS: ASPIRIN 325 MG TAB TUBE SCH (09:35)
[2016-08-07] MEDS: LINEZOLID 600 MG TAB PO SCH ×2 (09:35→21:01)
[2016-08-07] MEDS: NYSTATIN 100,000 U/GM PWD 15 GM BTL TOPICAL SCH ×2 (09:36→21:07)
[2016-08-07] MEDS: SODIUM CHLORIDE 0.65% NASAL SPRAY 45 ML BTL NASAL SCH ×2 (09:36→21:07)
[2016-08-07] MEDS: ARTIFICIAL TEARS OPTH OINT 3.5 APPLIC/3.5 GM TUBO EACH EYE SCH ×2 (09:36→21:06)
[2016-08-07] MEDS: SODIUM CHLORIDE 0.9% FLUSH 5 ML FLUSH IVF PRN (09:37)
--- NOTE | 2016-08-07 11:38 | HHI.PR ---
Subjective Remarks There has been no change in the patients clinical status. Mother at bedside. No new concerns. Objective Vitals Vital Signs Date Time Temp Pulse Resp B/P Pulse Ox O2 Delivery O2 Flow Rate FiO2 08/07/16 10:44 98 08/07/16 09:35 95 T-Piece 28 08/07/16 08:00 98.2 89 22 119/70 99 08/07/16 06:18 19 08/07/16 04:00 99.1 93 20 115/63 97 08/07/16 00:32 98.8 97 20 120/68 97 08/06/16 22:15 T-Piece 08/06/16 20:50 98.5 88 20 117/62 97 08/06/16 19:56 93 08/06/16 16:00 96.9 84 18 116/76 97 08/06/16 12:00 96.3 88 18 105/68 96 08/06/16 12:00 96 T-Piece 28 I/O 08/06/16 08/06/16 08/06/16 08/07/16 08/07/16 08/07/16 07:00 15:00 23:00 07:00 15:00 23:00 Intake Total 1816 ml 300 ml Output Total 500 ml 800 ml 500 ml Balance -500 ml 1016 ml -200 ml IV Total 200 ml Tube Feeding 1016 ml 300 ml Other 600 ml Output Urine Total 500 ml 800 ml 500 ml # Bowel Movements 2 6 Result Diagram: 08/07/16 0647 08/07/16 0647 Objective Remarks GENERAL: Nonverbal and in no acute distress. Trach in place SKIN: Warm and dry. CARDIOVASCULAR: Regular rate and rhythm without murmurs, gallops, or rubs. RESPIRATORY: Diffuse coarse breath sounds. Breath sounds equal and clear to auscultation anteriorly GASTROINTESTINAL: Abdomen soft, non-tender, nondistended. PEG tube in place MUSCULOSKELETAL: No cyanosis, or edema. Neuro: Non verbal, non interactive. Eyes open. Procedures 01/02/16 PEG placement 01/02/16 tracheostomy 07/22/2016 Wide excision of sacral skin wound, biopsy of the cavity lining and debridement. PEG tube replacement 07/29/16 Date of Insertion: Jun 06, 2016 A/P Problem List: (1) CVA (cerebral vascular accident) ICD Code: I63.9 Status: Acute (2) A-fib ICD Code: I48.91 Status: Chronic (3) DM (diabetes mellitus) ICD Code: E11.9 Status: Chronic Assessment and Plan 60-year-old male with past medical history of paroxysmal atrial fibrillation, hypertension, stage III a non-Hodgkin's lymphoma status post a chemotherapy last year. He came to the hospital with altered mental status, facial droop. Patient with significant deficit from CVA. 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 Significant cognitive deficit. 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 -Continue Keppra . Palliative care following. Monitor Keppra level periodically. -cont Paxil as per family request. PT/OT signed off as patient cannot participate. Chronic respiratory failure: Secondary to CVA, Status post tracheostomy. Continue pulmonary toilet and neb treatments as needed. Continue bronchodilators Xopenex, trach care, Levsin prn, suctioning. On 28% Os 07/05. - ID evaluated patient on 08/01/2016. Due to increased secretion, left base opacity on CXR, pseudomonas on sputum culture, ID started Zosyn for likely 7 days. A-fib: Continue rate control, Cardizem and metoprolol with holding parameters. Echocardiogram completed in November shows preserved EF. Coumadin discontinued secondary to bleeding. Continue with ASA and prophylactic heparin dose. Continue to monitor. History of Non-Hodgkin lymphoma: s/p brain biopsy on December 13, by Neurosurgery, Dr. Marin. Pathology consistent with acute infarct without evidence of lymphoma. Oncology signed off with no active oncology issues. DM (diabetes mellitus): HgbA1c 7%. Continue Levemir 35u daily. Continue sliding scale coverage. Monitor accuchecks and adjust the regimen as needed. Decubitus ulcer stage IV: Continue Rocephin indefinitely (on lactinex) per ID until OM is ruled out with bone biopsy and watch for further bleeding (off warfarin due to bleeding which appears to have resolved). Continue dressing changes twice daily per wound care recommendations. Continue pressure relief measures, mattress, Turning and positioning. Patient's family declined a diverting colostomy. Continue wound care. Wound is growing Klebsiella. Continue ceftriaxone. Per ID on 07/05, continue antibiotics for however long pt is here and then possibly could switch to PO upon discharge. - s/p Wide excision of sacral skin wound, biopsy of the cavity lining and debridement on 07/22/2016. - ID changed abx Unasyn to Zyvox. Gastric ulcers and reflux esophagitis: Patient has known gastric ulcers from EGD on 07/30/16. There was concern for coffee ground residual. Patient evaluated by GI. Advised to continue to monitor. Continue PPI with Protonix IV 40 mg twice daily. Follow-up H&H remained stable. GI/Nutrition: Continue Nepro at 55 cc/hr per dietitian recommendations. Free water flushes. Potassium supplement. Tolerating tube feeds 07/05. DVT px - SCDs Problem Qualifiers (1) DM (diabetes mellitus): Qualified Code: E11.9 - Type 2 diabetes mellitus without complications Jw Bah MD Aug 07, 2016 11:38
--- NOTE | 2016-08-07 16:09 | HHI.IDPN ---
Note Infectious Disease Note ID Follow up. Patient is very somnolent. Mom notes he has been sleepy last couple of days. Less oral and trach secretions. Oxygen sats in high 90's Getting oxygen via trach collar. Patient had sacral wound debridement and biopsy on 07/22/16. Sacrum wound culture had enterococcus faecalis. This 60-year-old male was admitted to the hospital on December 20 with altered mental status. He was eventually found to have a CVA. He was recently diagnosed with stage III non-Hodgkin's lymphoma about a year ago. The patient was intubated and he underwent tracheostomy and feeding tube placement. He was diagnosed with an acute stroke. PAST MEDICAL HISTORY 1. Hypertension. 2. Stage III non-Hodgkin's lymphoma. 3. Diabetes mellitus. 4. Paroxysmal atrial fibrillation. 5. Brain biopsy in Nov, 2015. 6. History of left arm surgery. ALLERGIES NO KNOWN DRUG ALLERGIES. Current Medications Medications (Trade) Dose Ordered Sig/Junior Route PRN Reason Start Time Stop Time Status Last Admin Dose Admin IV Flush (NS Flush) 2 ml UNSCH PRN IVF FLUSH AFTER USING IV ACCESS 12/21/15 06:00 08/07/16 09:37 Levetriacetam (Keppra Liq) 500 mg Q12HR TUBE 12/27/15 21:00 08/07/16 09:34 Acetaminophen (Tylenol 650 Mg/ 20 ml Liq) 650 mg Q6H PRN TUBE TEMP >100.4 12/30/15 15:15 08/06/16 04:29 Nystatin (Mycostatin Powder) 1 applic Q12HR TOPICAL 01/08/16 21:00 08/07/16 09:36 Miscellaneous (Pill Splitter) 1 ea UNSCH PRN OTHER SEE LABEL COMMENTS 01/14/16 08:30 Acetic Acid (Acetic Acid 0.25% Irr Btl) 10 ml Q8HR IRRIGATION 02/05/16 16:00 08/07/16 14:52 Lorazepam (Ativan Inj) 0.5 mg Q4H PRN IV PUSH seizures or agitation 03/07/16 23:00 Paroxetine HCl (Paxil Liq) 20 mg DAILY@1900 PEG 03/12/16 19:00 Hold 07/31/16 18:26 Insulin Detemir (Levemir Inj) 35 units HS SQ 03/24/16 21:00 08/06/16 22:46 Artificial Tears (Lacrilube Opht Oint) 1 applic Q12HR EACH EYE 04/10/16 11:00 08/07/16 09:36 Hyoscyamine Sulfate (Levsin) 0.25 mg Q4H PRN G-TUBE INCREASED SECRETIONS 04/11/16 10:30 08/02/16 12:46 Ondansetron HCl (Zofran Inj) 4 mg Q6HR PRN IV PUSH nausea/vomiting 04/14/16 19:45 08/03/16 12:45 Water (Free Water) 200 ml Q4HR TUBE 04/16/16 12:00 08/07/16 12:00 Acetaminophen/ Hydrocodone Bitart ([place] 5-325 Mg) 1 tab Q6HR PEG 04/18/16 18:00 08/07/16 12:36 Dextrose (D50w (Vial) Inj) 25 ml UNSCH PRN IV HYPOGLYCEMIA-SEE COMMENTS 04/20/16 12:00 Glucagon (Glucagon Inj) 1 mg UNSCH PRN IM/SQ HYPOGLYCEMIA-SEE COMMENTS 04/20/16 12:00 Potassium Bicarb/ Potassium Chloride (K-Lyte Cl Eff) 25 meq DAILY TUBE 05/28/16 09:00 08/07/16 09:34 Aspirin (Aspirin) 325 mg DAILY TUBE 05/27/16 11:40 08/07/16 09:35 Docusate Sodium (Colace Liq) 100 mg DAILY PRN PO constipation 05/27/16 11:45 08/02/16 12:46 Metoprolol Tartrate (Lopressor) 50 mg BID PO 05/29/16 21:00 08/07/16 09:35 Acetaminophen/ Hydrocodone Bitart ([place] 5-325 Mg) 1 tab Q6H PRN TUBE BREAKTHROUGH NAUSEA 06/03/16 03:00 08/02/16 15:11 Lactobacillus Acidophilus (Lactinex) 1 tab TID PEG 06/07/16 13:00 08/07/16 12:36 Heparin Sodium (Porcine) (Heparin Inj) 5,000 units Q8HR SQ 06/11/16 14:00 08/07/16 14:51 Diltiazem HCl (Cardizem) 30 mg QID PEG 07/17/16 18:00 08/07/16 09:35 Bacitracin 1 applic 1 applic BID TOP 07/20/16 10:00 08/07/16 09:00 Lactated Ringer's 1,000 ml @ 30 mls/hr Q24H IV 07/21/16 17:45 Lactated Ringer's (Lr 1000 ml Inj) 1,000 ml @ 30 mls/hr Q24H IV 07/30/16 06:00 Pantoprazole Sodium 40 mg 40 mg Q12H IV PUSH 07/30/16 10:15 08/07/16 09:34 Piperacillin Sod/ Tazobactam Sod (Zosyn 4.5 Gm Premix) 100 ml @ 200 mls/hr Q6H IV 08/01/16 16:00 08/07/16 09:37 Linezolid (Zyvox) 600 mg Q12HR PO 08/01/16 21:00 08/07/16 09:35 Sodium Chloride ([place]) 1 spray BID NASAL 08/01/16 21:00 08/07/16 09:36 SOCIAL HISTORY . Positive tobacco use. No alcohol use. No illicit drugs. FAMILY HISTORY Unable to obtain. OBJECTIVE: Vital Signs Date Time Temp Pulse Resp B/P Pulse Ox O2 Delivery O2 Flow Rate FiO2 08/07/16 13:40 18 08/07/16 12:00 97.5 81 22 109/62 98 08/07/16 11:20 100 T-piece 5.00 28 08/07/16 10:44 98 08/07/16 09:35 95 T-Piece 28 08/07/16 08:00 98.2 89 22 119/70 99 08/07/16 04:00 99.1 93 20 115/63 97 08/07/16 00:32 98.8 97 20 120/68 97 08/06/16 22:15 T-Piece 08/06/16 20:50 98.5 88 20 117/62 97 08/06/16 19:56 93 08/06/16 08/06/16 08/07/16 15:00 23:00 07:00 Intake Total 1816 ml 300 ml Output Total 800 ml 500 ml Balance 1016 ml -200 ml IV Total 200 ml Tube Feeding 1016 ml 300 ml Other 600 ml Output Urine Total 800 ml 500 ml # Bowel Movements 6 Laboratory Tests Test 08/07/16 06:47 White Blood Count 9.4 TH/MM3 Red Blood Count 3.60 MIL/MM3 Hemoglobin 8.6 GM/DL Hematocrit 26.5 % Mean Corpuscular Volume 73.6 FL Mean Corpuscular Hemoglobin 23.8 PG Mean Corpuscular Hemoglobin 32.4 % Concent Red Cell Distribution Width 19.1 % Platelet Count 267 TH/MM3 Mean Platelet Volume 8.5 FL Hematology Comments Laboratory Tests Test 08/07/16 06:47 Sodium Level 134 MEQ/L Potassium Level 4.2 MEQ/L Chloride Level 98 MEQ/L Carbon Dioxide Level 26.3 MEQ/L Anion Gap 10 MEQ/L Blood Urea Nitrogen 13 MG/DL Creatinine 0.75 MG/DL Estimat Glomerular Filtration 106 ML/MIN Rate Random Glucose 135 MG/DL Calcium Level 8.6 MG/DL IMAGING: Chest X-Ray 07/28/16 0000 Signed Impressions: Service Date/Time: Thursday, July 28, 2016 13:18 - CONCLUSION: Slight increase in parenchymal opacity left base. Octavio Ramírez MD FACR PHYSICAL EXAMINATION GENERAL: No acute distress. HEENT: The sclerae are nonicteric. No erythema. Oropharynx - moist mucosa visible. NECK: Supple without adenopathy. Trach collar. Barker secretions. LUNGS: Basilar rhonchi. HEART: Regular rate and rhythm. No murmurs, rubs or gallops. ABDOMEN: Bowel sounds normal, soft, no tenderness appreciated. BACK: Sacrum ulcer. EXTREMITIES: No clubbing, cyanosis or edema. NEUROLOGIC: Unable to fully assess. SKIN: No rash. Arevalo has clear yellow urine. IMPRESSION 1. Sacral wound. Post debridement now with Enterococcus. previously Klebsiella. 2. CVA. 3. Pneumonia. Post tracheostomy. Increased secretions. Left base opacity on CXR. sputum culture with pseudomonas - treated. 4. Diarrhea. R/O C diff. RECOMMENDATIONS 1. Continue PO Zyvox for sacrum wound treatment. Monitor platelet count. 2. Stop Zosyn. 3. Check stool c. diff toxin. 4. Start empiric PO Flagyl. 5. Resume antidepressant. Was held for treatment with Zyvox. 6. Monitor clinical status. Carlos Liu MD Aug 07, 2016 16:09
[2016-08-07] MEDS: metroNIDAZOLE 500 MG TAB PO SCH ×2 (17:01→23:03)
[2016-08-07] MEDS: INSULIN DETEMIR 100 UNITS/ML VIAL SQ SCH (21:08)
[2016-08-07] MEDS: PARoxetine HCL SUSP 20 MG/10 ML UDC PEG SCH (22:50)
[2016-08-07 23:29] LABS: C. DIFF EPI 027 PRESUMPTIVE NEGATIVE (NEGATIVE)
[2016-08-08] VITALS (10 sets, daily range): BP systolic 99–113; BP diastolic 58–70; PULSE 86–99; RESP 16–20; TEMP 95.8–99.5; O2SAT 95–99
[2016-08-08] MEDS: FREE WATER TUBE SCH ×5 (04:00→20:00)
[2016-08-08] MEDS: INSULIN ASPART SUPPLEMENTAL SCALE SQ SCH (05:46)
[2016-08-08] MEDS: LACTATED RINGER'S 1000 ML IV SCH ×3 (05:48→17:45)
[2016-08-08] MEDS: ACETIC ACID 0.25% SOLN 1000 ML IRR BTL IRRIGATION SCH ×3 (05:48→21:11)
[2016-08-08] MEDS: ACETAMINOPHEN/HYDROcodone 325 MG/5 MG TAB PEG SCH ×3 (05:49→14:01)
[2016-08-08] MEDS: HEPARIN SODIUM - SQ 10,000 UNITS/ML VIAL SQ SCH ×3 (05:49→21:09)
--- NOTE | 2016-08-08 07:59 | HHI.PR ---
Subjective Remarks Follow up for left MCA stroke, respiratory failure, decubitus ulcer. Mr. Flores is more drowsy today than usual. Family members at bedside. No acute concerns. Objective Vitals Vital Signs Date Time Temp Pulse Resp B/P Pulse Ox O2 Delivery O2 Flow Rate FiO2 08/08/16 04:00 97.2 99 20 106/63 95 08/08/16 01:11 99.5 92 20 99/59 99 08/07/16 20:25 97.4 92 18 114/74 98 08/07/16 20:00 T-Piece 6.00 28 08/07/16 20:00 84 08/07/16 18:13 18 08/07/16 18:11 98 T-piece 6.00 28 08/07/16 16:00 96.2 79 22 102/65 98 08/07/16 12:00 97.5 81 22 109/62 98 08/07/16 11:20 100 T-piece 5.00 28 08/07/16 10:44 98 08/07/16 09:35 95 T-Piece 28 08/07/16 08:00 98.2 89 22 119/70 99 I/O 08/07/16 08/07/16 08/07/16 08/08/16 08/08/16 08/08/16 07:00 15:00 23:00 07:00 15:00 23:00 Intake Total 300 ml Output Total 500 ml 675 ml 750 ml 450 ml Balance -200 ml -675 ml -750 ml -450 ml Tube Feeding 300 ml Output Urine Total 500 ml 675 ml 750 ml 450 ml Bladder Scan Volume Amount 392 ml # Bowel Movements 3 2 1 Result Diagram: 08/07/16 0647 08/07/16 0647 Imaging Last Impressions Chest X-Ray 08/01/16 0000 Signed Impressions: Service Date/Time: July 13:51 - CONCLUSION: 1. Stable mild airspace opacity at the left lung base representing either atelectasis or airspace consolidation. 2. New subsegmental atelectasis at the right lung base. Glen Gordon MD Abdomen/Pelvis CT 04/12/16 0000 Signed Impressions: Service Date/Time: Tuesday, April 12, 2016 20:52 - CONCLUSION: 1. 6.4 cm necrotic mass or abscess in the soft tissues posteriorly just below the sacrum associated with some bony destructive change of the lower most sacrum and coccyx with inflammatory changes extending into the ischiorectal fossa and into the presacral retroperitoneum predominantly on the left side. There is associated fairly marked mural thickening of the anal verge and rectum. 2. There is gastrostomy and Arevalo catheter present. Stable abdominal aortic aneurysm. Durga Dotson MD Head Magnetic Resonance Angiography 03/05/16 0000 Signed Impressions: Service Date/Time: Saturday, March 05, 2016 09:26 - CONCLUSION: Persistent high-grade subtotal occlusive stenotic lesions in the distal right vertebral artery and proximal basilar artery with significant improvement in flow and recanalization following initial presentation of thrombosis. Stable interstitial circulation without significant stenosis. 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 There is decreasing restricted diffusion and increasing loss of volume characteristic of a subacute to chronic infarct. No evidence of acute infarct, acute hemorrhage mass or edema. Ernesto Kulkarni MD Head CT 01/16/16 0000 Signed Impressions: Service Date/Time: Saturday, January 16, 2016 10:51 - CONCLUSION: No extensive low density in the brainstem colin more prominent in the right the left extending into the right middle cerebellar peduncle consistent with brainstem infarct nonhemorrhagic acute Wellington West MD Abdomen X-Ray 01/14/16 0000 Signed Impressions: Service Date/Time: Thursday, January 14, 2016 10:19 - CONCLUSION: Moderate stool; otherwise, negative. 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 No evidence of carotid stenosis. Glen Zamora MD Head/Brain Mag Res Venography 12/22/15 0000 Signed Impressions: Service Date/Time: Tuesday, December 22, 2015 09:22 - CONCLUSION: Normal MRV. Jonel Jones Jr., MD Objective Remarks GENERAL: Eyes open, closes eyes on command. No verbal communication. SKIN: Warm and dry. HEAD: Normocephalic. EYES: No scleral icterus. No injection or drainage. NECK: Supple, trachea midline. No JVD or lymphadenopathy. CARDIOVASCULAR: Regular rate and rhythm without murmurs, gallops, or rubs. RESPIRATORY: Coarse breath sounds. No accessory muscle use. GASTROINTESTINAL: Abdomen soft, non-tender, nondistended. MUSCULOSKELETAL: No cyanosis, or edema. BACK: Nontender without obvious deformity. No CVA tenderness. Procedures 01/02/16 PEG placement 01/02/16 tracheostomy 07/22/2016 Wide excision of sacral skin wound, biopsy of the cavity lining and debridement. PEG tube replacement 07/29/16 Date of Insertion: Jun 06, 2016 A/P Problem List: (1) CVA (cerebral vascular accident) ICD Code: I63.9 Status: Acute (2) A-fib ICD Code: I48.91 Status: Chronic (3) DM (diabetes mellitus) ICD Code: E11.9 Status: Chronic Assessment and Plan 60-year-old male with past medical history of paroxysmal atrial fibrillation, hypertension, stage III a non-Hodgkin's lymphoma status post a chemotherapy last year. He came to the hospital with altered mental status, facial droop. Patient with significant deficit from CVA. 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 Significant cognitive deficit. 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 -Continue Keppra . Palliative care following. Monitor Keppra level periodically. -cont Paxil as per family request. PT/OT signed off as patient cannot participate. Chronic respiratory failure: Secondary to CVA, Status post tracheostomy. Continue pulmonary toilet and neb treatments as needed. Continue bronchodilators Xopenex, trach care, Levsin prn, suctioning. On 28% Os 07/05. - ID evaluated patient on 08/01/2016. Due to increased secretion, left base opacity on CXR, pseudomonas on sputum culture, ID started Zosyn for likely 7 days. A-fib: Continue rate control, Cardizem and metoprolol with holding parameters. Echocardiogram completed in November shows preserved EF. Coumadin discontinued secondary to bleeding. Continue with ASA and prophylactic heparin dose. Continue to monitor. History of Non-Hodgkin lymphoma: s/p brain biopsy on December 13, by Neurosurgery, Dr. Marin. Pathology consistent with acute infarct without evidence of lymphoma. Oncology signed off with no active oncology issues. DM (diabetes mellitus): HgbA1c 7%. Continue Levemir 35u daily. Continue sliding scale coverage. Monitor accuchecks and adjust the regimen as needed. Decubitus ulcer stage IV: Continue Rocephin indefinitely (on lactinex) per ID until OM is ruled out with bone biopsy and watch for further bleeding (off warfarin due to bleeding which appears to have resolved). Continue dressing changes twice daily per wound care recommendations. Continue pressure relief measures, mattress, Turning and positioning. Patient's family declined a diverting colostomy. Continue wound care. Wound is growing Klebsiella. Continue ceftriaxone. Per ID on 07/05, continue antibiotics for however long pt is here and then possibly could switch to PO upon discharge. - s/p Wide excision of sacral skin wound, biopsy of the cavity lining and debridement on 07/22/2016. - ID changed abx Unasyn to Zyvox. Gastric ulcers and reflux esophagitis: Patient has known gastric ulcers from EGD on 07/30/16. There was concern for coffee ground residual. Patient evaluated by GI. Advised to continue to monitor. Continue PPI with Protonix IV 40 mg twice daily. Follow-up H&H remained stable. GI/Nutrition: Continue Nepro at 55 cc/hr per dietitian recommendations. Free water flushes. Potassium supplement. Tolerating tube feeds 07/05. 08/08/2016 : Drowsy but does open eyes on verbal commands. No acute changes. No fever, chills. Continue current management. DVT px - SCDs Problem Qualifiers (1) DM (diabetes mellitus): Qualified Code: E11.9 - Type 2 diabetes mellitus without complications Birdie Leal DO Aug 08, 2016 07:59
[2016-08-08] MEDS: levETIRAcetam 500 MG/5 ML UDC TUBE SCH ×2 (08:27→21:09)
[2016-08-08] MEDS: POTASSIUM CHLORIDE 25 MEQ EFFERVESCENT TAB TUBE SCH (08:28)
[2016-08-08] MEDS: LINEZOLID 600 MG TAB PO SCH ×2 (08:28→21:10)
[2016-08-08] MEDS: ASPIRIN 325 MG TAB TUBE SCH (08:28)
[2016-08-08] MEDS: METOPROLOL TARTRATE 50 MG TAB PO SCH ×2 (08:28→21:10)
[2016-08-08] MEDS: NYSTATIN 100,000 U/GM PWD 15 GM BTL TOPICAL SCH ×2 (08:28→21:00)
[2016-08-08] MEDS: metroNIDAZOLE 500 MG TAB PO SCH (08:28)
[2016-08-08] MEDS: BACITRACIN TOP OINT 15 GM TUBE TOP SCH ×2 (08:28→21:00)
[2016-08-08] MEDS: SODIUM CHLORIDE 0.65% NASAL SPRAY 45 ML BTL NASAL SCH ×2 (08:29→21:00)
[2016-08-08] MEDS: ARTIFICIAL TEARS OPTH OINT 3.5 APPLIC/3.5 GM TUBO EACH EYE SCH ×2 (08:29→21:00)
[2016-08-08] MEDS: DILTIAZEM HCL 90 MG TAB PEG SCH ×4 (08:29→21:00)
[2016-08-08] MEDS: LACTOBACILLUS ACIDOPHILUS TAB PEG SCH ×2 (08:29→13:00)
[2016-08-08] MEDS: PANTOPRAZOLE SODIUM 40 MG VIAL IV PUSH SCH ×2 (10:15→21:11)
--- NOTE | 2016-08-08 16:09 | HHI.IDPN ---
Note Infectious Disease Note ID Follow up. Patient is very somnolent but opens eyes easily to voice. Mom is concerned that he is sleepy. No distress. Less oral and trach secretions. Oxygen sats in high 90's Getting oxygen via trach collar. Patient had sacral wound debridement and biopsy on 07/22/16. Sacrum wound culture had enterococcus faecalis. This 60-year-old male was admitted to the hospital on December 20 with altered mental status. He was eventually found to have a CVA. He was recently diagnosed with stage III non-Hodgkin's lymphoma about a year ago. The patient was intubated and he underwent tracheostomy and feeding tube placement. He was diagnosed with an acute stroke. PAST MEDICAL HISTORY 1. Hypertension. 2. Stage III non-Hodgkin's lymphoma. 3. Diabetes mellitus. 4. Paroxysmal atrial fibrillation. 5. Brain biopsy in Nov, 2015. 6. History of left arm surgery. ALLERGIES NO KNOWN DRUG ALLERGIES. Current Medications Medications (Trade) Dose Ordered Sig/Junior Route PRN Reason Start Time Stop Time Status Last Admin Dose Admin IV Flush (NS Flush) 2 ml UNSCH PRN IVF FLUSH AFTER USING IV ACCESS 12/21/15 06:00 08/07/16 09:37 Levetriacetam (Keppra Liq) 500 mg Q12HR TUBE 12/27/15 21:00 08/08/16 08:27 Acetaminophen (Tylenol 650 Mg/ 20 ml Liq) 650 mg Q6H PRN TUBE TEMP >100.4 12/30/15 15:15 08/06/16 04:29 Nystatin (Mycostatin Powder) 1 applic Q12HR TOPICAL 01/08/16 21:00 08/08/16 08:28 Miscellaneous (Pill Splitter) 1 ea UNSCH PRN OTHER SEE LABEL COMMENTS 01/14/16 08:30 Acetic Acid (Acetic Acid 0.25% Irr Btl) 10 ml Q8HR IRRIGATION 02/05/16 16:00 08/08/16 13:46 Lorazepam (Ativan Inj) 0.5 mg Q4H PRN IV PUSH seizures or agitation 03/07/16 23:00 Paroxetine HCl (Paxil Liq) 20 mg DAILY@1900 PEG 03/12/16 19:00 08/07/16 22:50 Insulin Detemir (Levemir Inj) 35 units HS SQ 03/24/16 21:00 08/07/16 21:08 Artificial Tears (Lacrilube Opht Oint) 1 applic Q12HR EACH EYE 04/10/16 11:00 08/08/16 08:29 Hyoscyamine Sulfate (Levsin) 0.25 mg Q4H PRN G-TUBE INCREASED SECRETIONS 04/11/16 10:30 08/02/16 12:46 Ondansetron HCl (Zofran Inj) 4 mg Q6HR PRN IV PUSH nausea/vomiting 04/14/16 19:45 08/03/16 12:45 Water (Free Water) 200 ml Q4HR TUBE 04/16/16 12:00 08/08/16 12:00 Acetaminophen/ Hydrocodone Bitart (Souris 5-325 Mg) 1 tab Q6HR PEG 04/18/16 18:00 08/08/16 14:01 Dextrose (D50w (Vial) Inj) 25 ml UNSCH PRN IV HYPOGLYCEMIA-SEE COMMENTS 04/20/16 12:00 Glucagon (Glucagon Inj) 1 mg UNSCH PRN IM/SQ HYPOGLYCEMIA-SEE COMMENTS 04/20/16 12:00 Potassium Bicarb/ Potassium Chloride (K-Lyte Cl Eff) 25 meq DAILY TUBE 05/28/16 09:00 08/08/16 08:28 Aspirin (Aspirin) 325 mg DAILY TUBE 05/27/16 11:40 08/08/16 08:28 Docusate Sodium (Colace Liq) 100 mg DAILY PRN PO constipation 05/27/16 11:45 08/02/16 12:46 Metoprolol Tartrate (Lopressor) 50 mg BID PO 05/29/16 21:00 08/07/16 21:02 Acetaminophen/ Hydrocodone Bitart (Souris 5-325 Mg) 1 tab Q6H PRN TUBE BREAKTHROUGH NAUSEA 06/03/16 03:00 08/02/16 15:11 Lactobacillus Acidophilus (Lactinex) 1 tab TID PEG 06/07/16 13:00 08/08/16 13:00 Heparin Sodium (Porcine) (Heparin Inj) 5,000 units Q8HR SQ 06/11/16 14:00 08/08/16 13:54 Diltiazem HCl (Cardizem) 30 mg QID PEG 07/17/16 18:00 08/08/16 14:01 Bacitracin 1 applic 1 applic BID TOP 07/20/16 10:00 08/08/16 08:28 Lactated Ringer's 1,000 ml @ 30 mls/hr Q24H IV 07/21/16 17:45 Lactated Ringer's (Lr 1000 ml Inj) 1,000 ml @ 30 mls/hr Q24H IV 07/30/16 06:00 Pantoprazole Sodium (Protonix Inj) 40 mg Q12H IV PUSH 07/30/16 10:15 08/08/16 10:15 Linezolid (Zyvox) 600 mg Q12HR PO 08/01/16 21:00 08/08/16 08:28 Sodium Chloride ([place]) 1 spray BID NASAL 08/01/16 21:00 08/08/16 08:29 Metronidazole (Flagyl) 500 mg Q8H PO 08/07/16 16:00 08/08/16 08:28 SOCIAL HISTORY . Positive tobacco use. No alcohol use. No illicit drugs. FAMILY HISTORY Unable to obtain. OBJECTIVE: Vital Signs Date Time Temp Pulse Resp B/P Pulse Ox O2 Delivery O2 Flow Rate FiO2 08/08/16 12:25 96.8 94 20 113/64 95 08/08/16 11:13 97 T-piece 28 08/08/16 11:13 97 T-piece 28 08/08/16 08:45 98.2 90 20 110/58 99 08/08/16 04:00 97.2 99 20 106/63 95 08/08/16 01:11 99.5 92 20 99/59 99 08/07/16 20:25 97.4 92 18 114/74 98 08/07/16 20:00 T-Piece 6.00 28 08/07/16 20:00 84 08/07/16 18:13 18 08/07/16 18:11 98 T-piece 6.00 28 08/07/16 08/07/16 08/08/16 15:00 23:00 07:00 Output Total 675 ml 750 ml 450 ml Balance -675 ml -750 ml -450 ml Output Urine Total 675 ml 750 ml 450 ml Bladder Scan Volume Amount 392 ml # Bowel Movements 3 2 1 Laboratory Tests Test 08/07/16 06:47 White Blood Count 9.4 TH/MM3 Red Blood Count 3.60 MIL/MM3 Hemoglobin 8.6 GM/DL Hematocrit 26.5 % Mean Corpuscular Volume 73.6 FL Mean Corpuscular Hemoglobin 23.8 PG Mean Corpuscular Hemoglobin 32.4 % Concent Red Cell Distribution Width 19.1 % Platelet Count 267 TH/MM3 Mean Platelet Volume 8.5 FL Hematology Comments Laboratory Tests Test 08/07/16 06:47 Sodium Level 134 MEQ/L Potassium Level 4.2 MEQ/L Chloride Level 98 MEQ/L Carbon Dioxide Level 26.3 MEQ/L Anion Gap 10 MEQ/L Blood Urea Nitrogen 13 MG/DL Creatinine 0.75 MG/DL Estimat Glomerular Filtration 106 ML/MIN Rate Random Glucose 135 MG/DL Calcium Level 8.6 MG/DL IMAGING: Chest X-Ray 07/28/16 0000 Signed Impressions: Service Date/Time: Thursday, July 28, 2016 13:18 - CONCLUSION: Slight increase in parenchymal opacity left base. Octavio Ramírez MD FACR PHYSICAL EXAMINATION GENERAL: No acute distress. HEENT: The sclerae are nonicteric. No erythema. Oropharynx - moist mucosa visible. NECK: Supple without adenopathy. Trach collar. Barker secretions. LUNGS: Basilar rhonchi. HEART: Regular rate and rhythm. No murmurs, rubs or gallops. ABDOMEN: Bowel sounds normal, soft, no tenderness appreciated. BACK: Sacrum ulcer. EXTREMITIES: No clubbing, cyanosis or edema. NEUROLOGIC: Unable to fully assess. SKIN: No rash. Arevalo has clear yellow urine. IMPRESSION 1. Sacral wound. Post debridement now with Enterococcus. previously Klebsiella. 2. CVA. 3. Pneumonia. Post tracheostomy. Increased secretions. Left base opacity on CXR. sputum culture with pseudomonas - treated. 4. Diarrhea. negative C diff. Stable ID eagle. RECOMMENDATIONS 1. Continue PO Zyvox for sacrum wound treatment. Monitor platelet count. 2. Stop PO Flagyl. 3. Monitor clinical status. Carlos Liu MD Aug 08, 2016 16:09
[2016-08-08] MEDS: PARoxetine HCL SUSP 20 MG/10 ML UDC PEG SCH (19:00)
[2016-08-08] MEDS: INSULIN DETEMIR 100 UNITS/ML VIAL SQ SCH (21:10)
[2016-08-09] VITALS (8 sets, daily range): BP systolic 105–113; BP diastolic 63–78; PULSE 90–115; RESP 18–20; TEMP 97.3–100.3; O2SAT 96–99
[2016-08-09] MEDS: FREE WATER TUBE SCH ×7 (03:22→23:31)
[2016-08-09] MEDS: ACETIC ACID 0.25% SOLN 1000 ML IRR BTL IRRIGATION SCH ×3 (05:40→21:29)
[2016-08-09] MEDS: HEPARIN SODIUM - SQ 10,000 UNITS/ML VIAL SQ SCH ×3 (05:41→21:28)
[2016-08-09] MEDS: ACETAMINOPHEN/HYDROcodone 325 MG/5 MG TAB PEG SCH ×3 (05:42→23:30)
[2016-08-09] MEDS: LACTATED RINGER'S 1000 ML IV SCH ×2 (06:00→17:45)
[2016-08-09] MEDS: INSULIN ASPART SUPPLEMENTAL SCALE SQ SCH (06:00)
[2016-08-09] MEDS: LINEZOLID 600 MG TAB PO SCH ×2 (08:18→21:22)
[2016-08-09] MEDS: ASPIRIN 325 MG TAB TUBE SCH (08:18)
[2016-08-09] MEDS: levETIRAcetam 500 MG/5 ML UDC TUBE SCH ×2 (08:19→21:22)
[2016-08-09] MEDS: POTASSIUM CHLORIDE 25 MEQ EFFERVESCENT TAB TUBE SCH (08:20)
[2016-08-09] MEDS: LACTOBACILLUS ACIDOPHILUS TAB PEG SCH ×3 (08:30→18:00)
[2016-08-09] MEDS: METOPROLOL TARTRATE 50 MG TAB PO SCH ×2 (08:36→21:22)
[2016-08-09] MEDS: SODIUM CHLORIDE 0.65% NASAL SPRAY 45 ML BTL NASAL SCH ×2 (08:36→21:27)
[2016-08-09] MEDS: DILTIAZEM HCL 90 MG TAB PEG SCH ×4 (08:36→21:28)
[2016-08-09] MEDS: ARTIFICIAL TEARS OPTH OINT 3.5 APPLIC/3.5 GM TUBO EACH EYE SCH ×2 (08:36→21:27)
[2016-08-09] MEDS: NYSTATIN 100,000 U/GM PWD 15 GM BTL TOPICAL SCH ×2 (08:36→21:27)
[2016-08-09] MEDS: BACITRACIN TOP OINT 15 GM TUBE TOP SCH ×2 (08:36→21:27)
[2016-08-09] MEDS: PANTOPRAZOLE SODIUM 40 MG VIAL IV PUSH SCH ×2 (10:08→22:15)
--- NOTE | 2016-08-09 11:03 | HHI.PR ---
Subjective Remarks Follow up for left MCA stroke, respiratory failure, decubitus ulcer. Mr. Flores is much more alert today. Follows commands by opening or closing eyes. Moves his right fingers slightly but not entirely sure if it is purposeful. No other extremity movements. No fever, chills. Objective Vitals Vital Signs Date Time Temp Pulse Resp B/P Pulse Ox O2 Delivery O2 Flow Rate FiO2 08/09/16 08:30 97.8 97 20 112/63 96 08/09/16 08:03 98 T-piece 5.00 28 08/09/16 08:03 98 T-piece 28 08/09/16 04:00 97.8 98 20 110/64 97 08/09/16 00:00 97.3 93 18 105/68 97 08/09/16 00:00 97.3 93 18 105/68 97 08/08/16 21:12 97.8 97 16 107/70 08/08/16 19:10 Trach Collar 6.00 28 T-Piece 08/08/16 19:07 95.8 90 20 105/64 95 08/08/16 19:00 86 08/08/16 17:47 95 T-piece 6.00 28 08/08/16 12:25 96.8 94 20 113/64 95 08/08/16 11:13 97 T-piece 28 08/08/16 11:13 97 T-piece 28 I/O 08/08/16 08/08/16 08/08/16 08/09/16 08/09/16 08/09/16 07:00 15:00 23:00 07:00 15:00 23:00 Intake Total 880 ml Output Total 450 ml 1000 ml 1400 ml Balance -450 ml -1000 ml -520 ml Tube Feeding 480 ml Other 400 ml Output Urine Total 450 ml 1000 ml 1400 ml # Bowel Movements 1 1 Result Diagram: 08/07/16 0647 08/07/16 0647 Objective Remarks GENERAL: Eyes open, closes eyes on command. No verbal communication. SKIN: Warm and dry. HEAD: Normocephalic. EYES: No scleral icterus. No injection or drainage. NECK: Supple, trachea midline. No JVD or lymphadenopathy. CARDIOVASCULAR: Regular rate and rhythm without murmurs, gallops, or rubs. RESPIRATORY: Coarse breath sounds. No accessory muscle use. GASTROINTESTINAL: Abdomen soft, non-tender, nondistended. MUSCULOSKELETAL: No cyanosis, or edema. BACK: Nontender without obvious deformity. No CVA tenderness. Procedures 01/02/16 PEG placement 01/02/16 tracheostomy 07/22/2016 Wide excision of sacral skin wound, biopsy of the cavity lining and debridement. PEG tube replacement 07/29/16 Date of Insertion: Jun 06, 2016 A/P Problem List: (1) CVA (cerebral vascular accident) ICD Code: I63.9 Status: Acute (2) A-fib ICD Code: I48.91 Status: Chronic (3) DM (diabetes mellitus) ICD Code: E11.9 Status: Chronic Assessment and Plan 60-year-old male with past medical history of paroxysmal atrial fibrillation, hypertension, stage III a non-Hodgkin's lymphoma status post a chemotherapy last year. He came to the hospital with altered mental status, facial droop. Patient with significant deficit from CVA. 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 Significant cognitive deficit. 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 -Continue Keppra . Palliative care following. Monitor Keppra level periodically. -cont Paxil as per family request. PT/OT signed off as patient cannot participate. Chronic respiratory failure: Secondary to CVA, Status post tracheostomy. Continue pulmonary toilet and neb treatments as needed. Continue bronchodilators Xopenex, trach care, Levsin prn, suctioning. On 28% Os 07/05. - ID evaluated patient on 08/01/2016. Due to increased secretion, left base opacity on CXR, pseudomonas on sputum culture, ID started Zosyn for likely 7 days. A-fib: Continue rate control, Cardizem and metoprolol with holding parameters. Echocardiogram completed in November shows preserved EF. Coumadin discontinued secondary to bleeding. Continue with ASA and prophylactic heparin dose. Continue to monitor. History of Non-Hodgkin lymphoma: s/p brain biopsy on December 13, by Neurosurgery, Dr. Marin. Pathology consistent with acute infarct without evidence of lymphoma. Oncology signed off with no active oncology issues. DM (diabetes mellitus): HgbA1c 7%. Continue Levemir 35u daily. Continue sliding scale coverage. Monitor accuchecks and adjust the regimen as needed. Decubitus ulcer stage IV: Continue Rocephin indefinitely (on lactinex) per ID until OM is ruled out with bone biopsy and watch for further bleeding (off warfarin due to bleeding which appears to have resolved). Continue dressing changes twice daily per wound care recommendations. Continue pressure relief measures, mattress, Turning and positioning. Patient's family declined a diverting colostomy. Continue wound care. Wound is growing Klebsiella. Continue ceftriaxone. Per ID on 07/05, continue antibiotics for however long pt is here and then possibly could switch to PO upon discharge. - s/p Wide excision of sacral skin wound, biopsy of the cavity lining and debridement on 07/22/2016. - ID changed abx Unasyn to Zyvox. Gastric ulcers and reflux esophagitis: Patient has known gastric ulcers from EGD on 07/30/16. There was concern for coffee ground residual. Patient evaluated by GI. Advised to continue to monitor. Continue PPI with Protonix IV 40 mg twice daily. Follow-up H&H remained stable. GI/Nutrition: Continue Nepro at 55 cc/hr per dietitian recommendations. Free water flushes. Potassium supplement. Tolerating tube feeds 07/05. 08/09/2016 - No change in management. We will continue current care. Overall poor prognosis. DVT px - SCDs Problem Qualifiers (1) DM (diabetes mellitus): Qualified Code: E11.9 - Type 2 diabetes mellitus without complications Birdie Leal DO Aug 09, 2016 11:03
[2016-08-09] MEDS: PARoxetine HCL SUSP 20 MG/10 ML UDC PEG SCH (19:00)
[2016-08-09] MEDS: INSULIN DETEMIR 100 UNITS/ML VIAL SQ SCH (21:25)
[2016-08-10] VITALS (8 sets, daily range): BP systolic 114–141; BP diastolic 69–84; PULSE 85–96; RESP 17–20; TEMP 97–100; O2SAT 96–100
[2016-08-10] MEDS: FREE WATER TUBE SCH ×5 (03:21→22:06)
[2016-08-10] MEDS: ACETIC ACID 0.25% SOLN 1000 ML IRR BTL IRRIGATION SCH ×3 (05:34→22:10)
[2016-08-10] MEDS: ACETAMINOPHEN/HYDROcodone 325 MG/5 MG TAB PEG SCH ×3 (05:35→17:36)
[2016-08-10] MEDS: LACTATED RINGER'S 1000 ML IV SCH ×2 (05:35→16:51)
[2016-08-10] MEDS: HEPARIN SODIUM - SQ 10,000 UNITS/ML VIAL SQ SCH ×3 (05:35→22:04)
[2016-08-10] MEDS: INSULIN ASPART SUPPLEMENTAL SCALE SQ SCH (06:16)
--- NOTE | 2016-08-10 07:56 | HHI.PR ---
Subjective Remarks Follow up for left MCA stroke, respiratory failure, decubitus ulcer. Mr. Flores remains aphasic, opens eyes, follows commands when asked to open or close his eyes. No meaningful limb movements. Objective Vitals Vital Signs Date Time Temp Pulse Resp B/P Pulse Ox O2 Delivery O2 Flow Rate FiO2 08/10/16 06:14 20 08/10/16 04:00 98.6 96 20 125/69 97 08/10/16 00:00 100.0 85 20 119/77 98 08/09/16 20:14 98 T-piece 6.00 28 08/09/16 20:14 98 T-piece 6.00 28 08/09/16 20:00 100.3 115 20 111/70 98 08/09/16 20:00 97 08/09/16 20:00 98 T-Piece 28 08/09/16 17:20 97.5 91 20 113/78 98 08/09/16 12:48 98.9 90 20 110/68 99 08/09/16 08:30 97.8 97 20 112/63 96 08/09/16 08:03 98 T-piece 5.00 28 08/09/16 08:03 98 T-piece 28 I/O 08/09/16 08/09/16 08/09/16 08/10/16 08/10/16 08/10/16 07:00 15:00 23:00 07:00 15:00 23:00 Intake Total 880 ml 1620 ml Output Total 1400 ml 600.0 ml 600 ml Balance -520 ml -600.0 ml 1020 ml Intake Oral 0 ml IV Total 0 ml Tube Feeding 480 ml 720 ml Other 400 ml 900 ml Output Urine Total 1400 ml 600 ml 600 ml Tube Feeding Residual Discard 0 ml # Bowel Movements 1 Result Diagram: 08/07/16 0647 08/07/16 0647 Imaging Last Impressions Chest X-Ray 08/01/16 0000 Signed Impressions: Service Date/Time: July 13:51 - CONCLUSION: 1. Stable mild airspace opacity at the left lung base representing either atelectasis or airspace consolidation. 2. New subsegmental atelectasis at the right lung base. Glen Gordon MD Abdomen/Pelvis CT 04/12/16 0000 Signed Impressions: Service Date/Time: Tuesday, April 12, 2016 20:52 - CONCLUSION: 1. 6.4 cm necrotic mass or abscess in the soft tissues posteriorly just below the sacrum associated with some bony destructive change of the lower most sacrum and coccyx with inflammatory changes extending into the ischiorectal fossa and into the presacral retroperitoneum predominantly on the left side. There is associated fairly marked mural thickening of the anal verge and rectum. 2. There is gastrostomy and Arevalo catheter present. Stable abdominal aortic aneurysm. Durga Dotson MD Head Magnetic Resonance Angiography 03/05/16 0000 Signed Impressions: Service Date/Time: Saturday, March 05, 2016 09:26 - CONCLUSION: Persistent high-grade subtotal occlusive stenotic lesions in the distal right vertebral artery and proximal basilar artery with significant improvement in flow and recanalization following initial presentation of thrombosis. Stable interstitial circulation without significant stenosis. 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 There is decreasing restricted diffusion and increasing loss of volume characteristic of a subacute to chronic infarct. No evidence of acute infarct, acute hemorrhage mass or edema. Ernesto Kulkarni MD Head CT 01/16/16 0000 Signed Impressions: Service Date/Time: Saturday, January 16, 2016 10:51 - CONCLUSION: No extensive low density in the brainstem colin more prominent in the right the left extending into the right middle cerebellar peduncle consistent with brainstem infarct nonhemorrhagic acute Wellington West MD Abdomen X-Ray 01/14/16 0000 Signed Impressions: Service Date/Time: Thursday, January 14, 2016 10:19 - CONCLUSION: Moderate stool; otherwise, negative. 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 No evidence of carotid stenosis. Glen Zamora MD Head/Brain Mag Res Venography 12/22/15 0000 Signed Impressions: Service Date/Time: Tuesday, December 22, 2015 09:22 - CONCLUSION: Normal MRV. Jonel Jones Jr., MD Objective Remarks GENERAL: Eyes open, closes eyes on command. No verbal communication. SKIN: Warm and dry. HEAD: Normocephalic. EYES: No scleral icterus. No injection or drainage. NECK: Supple, trachea midline. No JVD or lymphadenopathy. CARDIOVASCULAR: Regular rate and rhythm without murmurs, gallops, or rubs. RESPIRATORY: Coarse breath sounds. No accessory muscle use. GASTROINTESTINAL: Abdomen soft, non-tender, nondistended. MUSCULOSKELETAL: No cyanosis, or edema. BACK: Nontender without obvious deformity. No CVA tenderness. Procedures 01/02/16 PEG placement 01/02/16 tracheostomy 07/22/2016 Wide excision of sacral skin wound, biopsy of the cavity lining and debridement. PEG tube replacement 07/29/16 Date of Insertion: Jun 06, 2016 A/P Problem List: (1) CVA (cerebral vascular accident) ICD Code: I63.9 Status: Acute (2) A-fib ICD Code: I48.91 Status: Chronic (3) DM (diabetes mellitus) ICD Code: E11.9 Status: Chronic Assessment and Plan 60-year-old male with past medical history of paroxysmal atrial fibrillation, hypertension, stage III a non-Hodgkin's lymphoma status post a chemotherapy last year. He came to the hospital with altered mental status, facial droop. Patient with significant deficit from CVA. 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 Significant cognitive deficit. 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 -Continue Keppra . Palliative care following. Monitor Keppra level periodically. -cont Paxil as per family request. PT/OT signed off as patient cannot participate. Chronic respiratory failure: Secondary to CVA, Status post tracheostomy. Continue pulmonary toilet and neb treatments as needed. Continue bronchodilators Xopenex, trach care, Levsin prn, suctioning. On 28% Os 07/05. - ID evaluated patient on 08/01/2016. Due to increased secretion, left base opacity on CXR, pseudomonas on sputum culture, ID started Zosyn for likely 7 days. A-fib: Continue rate control, Cardizem and metoprolol with holding parameters. Echocardiogram completed in November shows preserved EF. Coumadin discontinued secondary to bleeding. Continue with ASA and prophylactic heparin dose. Continue to monitor. History of Non-Hodgkin lymphoma: s/p brain biopsy on December 13, by Neurosurgery, Dr. Marin. Pathology consistent with acute infarct without evidence of lymphoma. Oncology signed off with no active oncology issues. DM (diabetes mellitus): HgbA1c 7%. Continue Levemir 35u daily. Continue sliding scale coverage. Monitor accuchecks and adjust the regimen as needed. Decubitus ulcer stage IV: Continue Rocephin indefinitely (on lactinex) per ID until OM is ruled out with bone biopsy and watch for further bleeding (off warfarin due to bleeding which appears to have resolved). Continue dressing changes twice daily per wound care recommendations. Continue pressure relief measures, mattress, Turning and positioning. Patient's family declined a diverting colostomy. Continue wound care. Wound is growing Klebsiella. Continue ceftriaxone. Per ID on 07/05, continue antibiotics for however long pt is here and then possibly could switch to PO upon discharge. - s/p Wide excision of sacral skin wound, biopsy of the cavity lining and debridement on 07/22/2016. - ID changed abx Unasyn to Zyvox. Gastric ulcers and reflux esophagitis: Patient has known gastric ulcers from EGD on 07/30/16. There was concern for coffee ground residual. Patient evaluated by GI. Advised to continue to monitor. Continue PPI with Protonix IV 40 mg twice daily. Follow-up H&H remained stable. GI/Nutrition: Continue Nepro at 55 cc/hr per dietitian recommendations. Free water flushes. Potassium supplement. Tolerating tube feeds 07/05. 08/10/2016 - No change in management. Continue current care. Poor prognosis. DVT px - SCDs Problem Qualifiers (1) DM (diabetes mellitus): Qualified Code: E11.9 - Type 2 diabetes mellitus without complications Birdie Leal DO Aug 10, 2016 7:56 am
[2016-08-10] MEDS: POTASSIUM CHLORIDE 25 MEQ EFFERVESCENT TAB TUBE SCH (08:44)
[2016-08-10] MEDS: SODIUM CHLORIDE 0.9% FLUSH 5 ML FLUSH IVF PRN (08:44)
[2016-08-10] MEDS: DILTIAZEM HCL 90 MG TAB PEG SCH ×4 (08:45→21:00)
[2016-08-10] MEDS: METOPROLOL TARTRATE 50 MG TAB PO SCH ×2 (08:46→22:05)
[2016-08-10] MEDS: LINEZOLID 600 MG TAB PO SCH ×2 (08:46→22:05)
[2016-08-10] MEDS: ASPIRIN 325 MG TAB TUBE SCH (08:46)
[2016-08-10] MEDS: LACTOBACILLUS ACIDOPHILUS TAB PEG SCH ×3 (08:47→17:36)
[2016-08-10] MEDS: NYSTATIN 100,000 U/GM PWD 15 GM BTL TOPICAL SCH ×2 (08:47→22:09)
[2016-08-10] MEDS: ARTIFICIAL TEARS OPTH OINT 3.5 APPLIC/3.5 GM TUBO EACH EYE SCH ×2 (08:47→22:09)
[2016-08-10] MEDS: BACITRACIN TOP OINT 15 GM TUBE TOP SCH ×2 (08:48→22:09)
[2016-08-10] MEDS: SODIUM CHLORIDE 0.65% NASAL SPRAY 45 ML BTL NASAL SCH ×2 (08:48→22:10)
[2016-08-10] MEDS: levETIRAcetam 500 MG/5 ML UDC TUBE SCH ×2 (08:48→22:04)
[2016-08-10] MEDS: PANTOPRAZOLE SODIUM 40 MG VIAL IV PUSH SCH ×2 (10:15→22:06)
[2016-08-10] MEDS: ONDANSETRON HCL 4 MG/2 ML VIAL IV PUSH PRN (10:16)
[2016-08-10] MEDS: HYOSCYAMINE 0.125 MG TAB G-TUBE PRN (10:16)
[2016-08-10] MEDS: PARoxetine HCL SUSP 20 MG/10 ML UDC PEG SCH (19:00)
[2016-08-10] MEDS: INSULIN DETEMIR 100 UNITS/ML VIAL SQ SCH (22:05)
[2016-08-11] VITALS (8 sets, daily range): BP systolic 99–126; BP diastolic 64–78; PULSE 82–89; RESP 19–22; TEMP 95.1–98.1; O2SAT 97–99
[2016-08-11] MEDS: FREE WATER TUBE SCH ×6 (00:51→19:51)
[2016-08-11] MEDS: ACETAMINOPHEN/HYDROcodone 325 MG/5 MG TAB PEG SCH ×4 (00:51→16:41)
[2016-08-11] MEDS: ACETIC ACID 0.25% SOLN 1000 ML IRR BTL IRRIGATION SCH ×3 (04:37→20:11)
[2016-08-11] MEDS: LACTATED RINGER'S 1000 ML IV SCH ×2 (04:37→16:41)
[2016-08-11] MEDS: HEPARIN SODIUM - SQ 10,000 UNITS/ML VIAL SQ SCH ×3 (04:37→19:50)
[2016-08-11] MEDS: INSULIN ASPART SUPPLEMENTAL SCALE SQ SCH (04:49)
[2016-08-11] MEDS: HYOSCYAMINE 0.125 MG TAB G-TUBE PRN (08:38)
[2016-08-11] MEDS: LINEZOLID 600 MG TAB PO SCH ×2 (08:39→19:48)
[2016-08-11] MEDS: levETIRAcetam 500 MG/5 ML UDC TUBE SCH ×2 (08:39→19:44)
[2016-08-11] MEDS: POTASSIUM CHLORIDE 25 MEQ EFFERVESCENT TAB TUBE SCH (08:39)
[2016-08-11] MEDS: LACTOBACILLUS ACIDOPHILUS TAB PEG SCH ×3 (08:39→16:26)
[2016-08-11] MEDS: ASPIRIN 325 MG TAB TUBE SCH (08:40)
[2016-08-11] MEDS: NYSTATIN 100,000 U/GM PWD 15 GM BTL TOPICAL SCH ×2 (08:40→20:11)
[2016-08-11] MEDS: ARTIFICIAL TEARS OPTH OINT 3.5 APPLIC/3.5 GM TUBO EACH EYE SCH ×2 (08:41→20:11)
[2016-08-11] MEDS: DILTIAZEM HCL 90 MG TAB PEG SCH ×4 (08:41→19:51)
[2016-08-11] MEDS: SODIUM CHLORIDE 0.65% NASAL SPRAY 45 ML BTL NASAL SCH ×2 (08:41→20:11)
[2016-08-11] MEDS: METOPROLOL TARTRATE 50 MG TAB PO SCH ×2 (08:54→19:47)
[2016-08-11] MEDS: BACITRACIN TOP OINT 15 GM TUBE TOP SCH ×2 (08:55→20:11)
[2016-08-11] MEDS: PANTOPRAZOLE SODIUM 40 MG VIAL IV PUSH SCH ×2 (10:03→19:48)
--- NOTE | 2016-08-11 11:01 | HHI.PR ---
Subjective Remarks Follow-up left MCA stroke, respiratory failure, decubitus ulcer. No events reported by nursing. Patient is nonverbal. Objective Vitals Vital Signs Date Time Temp Pulse Resp B/P Pulse Ox O2 Delivery O2 Flow Rate FiO2 08/11/16 08:00 96.6 87 20 99/64 98 08/11/16 08:00 84 08/11/16 08:00 98 T-Piece 6.00 28 08/11/16 04:00 98.0 82 19 124/78 97 08/11/16 00:16 98.1 89 19 109/74 97 08/10/16 21:26 97.0 96 20 114/79 96 08/10/16 16:22 97.6 89 17 124/70 96 08/10/16 12:12 97.6 89 19 130/75 97 08/10/16 11:36 100 T-piece 28 08/10/16 11:36 100 T-piece 28 I/O 08/10/16 08/10/16 08/10/16 08/11/16 08/11/16 08/11/16 07:00 15:00 23:00 07:00 15:00 23:00 Intake Total 1620 ml Output Total 600 ml 1000 ml Balance 1020 ml -1000 ml Intake Oral 0 ml IV Total 0 ml Tube Feeding 720 ml Other 900 ml Output Urine Total 600 ml 1000 ml # Bowel Movements 1 Result Diagram: 08/07/16 0647 08/07/16 0647 Imaging Last Impressions Chest X-Ray 08/01/16 0000 Signed Impressions: Service Date/Time: July 13:51 - CONCLUSION: 1. Stable mild airspace opacity at the left lung base representing either atelectasis or airspace consolidation. 2. New subsegmental atelectasis at the right lung base. Glen Gordon MD Abdomen/Pelvis CT 04/12/16 0000 Signed Impressions: Service Date/Time: Tuesday, April 12, 2016 20:52 - CONCLUSION: 1. 6.4 cm necrotic mass or abscess in the soft tissues posteriorly just below the sacrum associated with some bony destructive change of the lower most sacrum and coccyx with inflammatory changes extending into the ischiorectal fossa and into the presacral retroperitoneum predominantly on the left side. There is associated fairly marked mural thickening of the anal verge and rectum. 2. There is gastrostomy and Arevalo catheter present. Stable abdominal aortic aneurysm. Durga Dotson MD Head Magnetic Resonance Angiography 03/05/16 0000 Signed Impressions: Service Date/Time: Saturday, March 05, 2016 09:26 - CONCLUSION: Persistent high-grade subtotal occlusive stenotic lesions in the distal right vertebral artery and proximal basilar artery with significant improvement in flow and recanalization following initial presentation of thrombosis. Stable interstitial circulation without significant stenosis. 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 There is decreasing restricted diffusion and increasing loss of volume characteristic of a subacute to chronic infarct. No evidence of acute infarct, acute hemorrhage mass or edema. Ernesto Kulkarni MD Head CT 01/16/16 0000 Signed Impressions: Service Date/Time: Saturday, January 16, 2016 10:51 - CONCLUSION: No extensive low density in the brainstem colin more prominent in the right the left extending into the right middle cerebellar peduncle consistent with brainstem infarct nonhemorrhagic acute Wellington West MD Abdomen X-Ray 01/14/16 0000 Signed Impressions: Service Date/Time: Thursday, January 14, 2016 10:19 - CONCLUSION: Moderate stool; otherwise, negative. 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 No evidence of carotid stenosis. Glen Zamora MD Head/Brain Mag Res Venography 12/22/15 0000 Signed Impressions: Service Date/Time: Tuesday, December 22, 2015 09:22 - CONCLUSION: Normal MRV. Jonel Jones Jr., MD Objective Remarks General: No acute distress. Trach. Heart: Regular rate and rhythm. No murmur. Lungs: Clear to auscultation bilaterally. No wheezes, rales, or rhonchi. Breathing is nonlabored. Abdomen: Soft, nontender, nondistended. Extremities: No lower extremity edema. Psych: Alert, does open eyes and track with verbal stimuli. Procedures 01/02/16 PEG placement 01/02/16 tracheostomy 07/22/2016 Wide excision of sacral skin wound, biopsy of the cavity lining and debridement. PEG tube replacement 07/29/16 Urinary Catheter: Yes Arevalo insert reason: Obstruction/Retention Date of Insertion: Aug 03, 2016 Vascular Central Line Catheter: No A/P Problem List: (1) CVA (cerebral vascular accident) ICD Code: I63.9 Status: Acute (2) A-fib ICD Code: I48.91 Status: Chronic (3) DM (diabetes mellitus) ICD Code: E11.9 Status: Chronic Assessment and Plan 1. 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 Patient is nonverbal. Continue Keppra for seizure prophylaxis. PT/OT signed off as patient is unable to participate. 2. Chronic respiratory failure: Secondary to CVA. Status post tracheostomy. Continue pulmonary toilet and bronchodilators as needed. Continue trach care, suctioning. Levsin as needed. 3. Atrial fibrillation: Continue rate control with Cardizem and metoprolol. Echocardiogram in November 2015 shows preserved ejection fraction. Coumadin discontinued secondary to bleeding. Continue aspirin and prophylactic heparin dose. 4. History of non-Hodgkin's lymphoma: Status post brain biopsy on December 13 by neurosurgery. Pathology consistent with acute infarct without evidence of lymphoma. Oncology signed off. 5. Diabetes mellitus: Hemoglobin A1c is 7. Continue Levemir. Monitor Accu-Cheks and cover with sliding scale insulin. 6. Decubitus ulcer stage IV: Continue wound care, twice-daily dressing changes.. Wound care recommendations. Continue pressure relief measures including turning and positioning. Patient's family has declined a diverting colostomy. Wound culture growing Klebsiella. Antibiotics per infectious disease. Status post wide excision of sacral skin and biopsy of the cavity lining with debridement on 07/22/16. 7. Gastric ulcer, reflux esophagitis: EGD on 07/30/16 showed gastric ulcers. Appreciate GI recommendations. Continue PPI. H&H stable. 8. FEN: Continue Nepro tube feeds. Appreciate dietary recommendations. Continue free water flushes. Supplement potassium. 9. Poor prognosis. 10. DVT prophylaxis: SCDs. Problem Qualifiers (1) DM (diabetes mellitus): Qualified Code: E11.9 - Type 2 diabetes mellitus without complications Obed Henry MD Aug 11, 2016 11:01
[2016-08-11] MEDS: PARoxetine HCL SUSP 20 MG/10 ML UDC PEG SCH (16:41)
[2016-08-11] MEDS: INSULIN DETEMIR 100 UNITS/ML VIAL SQ SCH (19:52)
[2016-08-11] MEDS: SODIUM CHLORIDE 0.9% FLUSH 5 ML FLUSH IVF PRN (19:58)
[2016-08-11] MEDS: DOCUSATE SODIUM 100 MG/10 ML UDC PO PRN (20:01)
[2016-08-12] VITALS (8 sets, daily range): BP systolic 100–122; BP diastolic 66–74; PULSE 91–111; RESP 19–22; TEMP 95.3–97.6; O2SAT 95–99
[2016-08-12] MEDS: LACTATED RINGER'S 1000 ML IV SCH (06:00)
[2016-08-12] MEDS: ACETAMINOPHEN/HYDROcodone 325 MG/5 MG TAB PEG SCH ×4 (06:13→18:41)
[2016-08-12] MEDS: FREE WATER TUBE SCH ×6 (06:13→20:00)
[2016-08-12] MEDS: HEPARIN SODIUM - SQ 10,000 UNITS/ML VIAL SQ SCH ×3 (06:14→21:31)
[2016-08-12] MEDS: INSULIN ASPART SUPPLEMENTAL SCALE SQ SCH (06:30)
[2016-08-12] MEDS: ACETIC ACID 0.25% SOLN 1000 ML IRR BTL IRRIGATION SCH ×3 (06:31→21:30)
[2016-08-12] MEDS: levETIRAcetam 500 MG/5 ML UDC TUBE SCH ×2 (08:13→21:31)
[2016-08-12] MEDS: DILTIAZEM HCL 90 MG TAB PEG SCH ×5 (08:14→21:32)
[2016-08-12] MEDS: POTASSIUM CHLORIDE 25 MEQ EFFERVESCENT TAB TUBE SCH (08:15)
[2016-08-12] MEDS: SODIUM CHLORIDE 0.65% NASAL SPRAY 45 ML BTL NASAL SCH ×2 (08:15→21:00)
[2016-08-12] MEDS: LINEZOLID 600 MG TAB PO SCH ×2 (08:15→21:32)
[2016-08-12] MEDS: NYSTATIN 100,000 U/GM PWD 15 GM BTL TOPICAL SCH ×2 (08:15→21:29)
[2016-08-12] MEDS: LACTOBACILLUS ACIDOPHILUS TAB PEG SCH ×3 (08:16→18:41)
[2016-08-12] MEDS: DOCUSATE SODIUM 100 MG/10 ML UDC PO PRN (08:16)
[2016-08-12] MEDS: ASPIRIN 325 MG TAB TUBE SCH (08:16)
[2016-08-12] MEDS: METOPROLOL TARTRATE 50 MG TAB PO SCH ×2 (08:16→21:32)
[2016-08-12] MEDS: SODIUM CHLORIDE 0.9% FLUSH 5 ML FLUSH IVF PRN (08:17)
[2016-08-12] MEDS: BACITRACIN TOP OINT 15 GM TUBE TOP SCH ×2 (09:00→21:29)
[2016-08-12] MEDS: ARTIFICIAL TEARS OPTH OINT 3.5 APPLIC/3.5 GM TUBO EACH EYE SCH ×2 (09:00→21:30)
--- NOTE | 2016-08-12 11:02 | HHI.PR ---
Subjective Remarks Follow up CVA, encephalopathy. Family feels that he is sleepy/sedated today. He is nonverbal and does not follow commands. Objective Vitals Vital Signs Date Time Temp Pulse Resp B/P Pulse Ox O2 Delivery O2 Flow Rate FiO2 08/12/16 08:00 96.9 108 21 106/71 96 08/12/16 06:34 97.2 98 20 114/67 96 08/12/16 00:00 97.6 98 22 113/66 95 08/11/16 20:51 99 T-piece 28 08/11/16 20:51 99 T-piece 21 08/11/16 16:00 95.1 88 22 109/72 98 08/11/16 12:15 96.8 88 08/11/16 11:45 126/74 I/O 08/11/16 08/11/16 08/11/16 08/12/16 08/12/16 08/12/16 07:00 15:00 23:00 07:00 15:00 23:00 Output Total 1000 ml 850 ml 800 ml Balance -1000 ml -850 ml -800 ml Output Urine Total 1000 ml 850 ml 800 ml # Bowel Movements 0 Imaging Last Impressions Chest X-Ray 08/01/16 0000 Signed Impressions: Service Date/Time: July 13:51 - CONCLUSION: 1. Stable mild airspace opacity at the left lung base representing either atelectasis or airspace consolidation. 2. New subsegmental atelectasis at the right lung base. Glen Gordon MD Abdomen/Pelvis CT 04/12/16 0000 Signed Impressions: Service Date/Time: Tuesday, April 12, 2016 20:52 - CONCLUSION: 1. 6.4 cm necrotic mass or abscess in the soft tissues posteriorly just below the sacrum associated with some bony destructive change of the lower most sacrum and coccyx with inflammatory changes extending into the ischiorectal fossa and into the presacral retroperitoneum predominantly on the left side. There is associated fairly marked mural thickening of the anal verge and rectum. 2. There is gastrostomy and Arevalo catheter present. Stable abdominal aortic aneurysm. Durga Dotson MD Head Magnetic Resonance Angiography 03/05/16 0000 Signed Impressions: Service Date/Time: Saturday, March 05, 2016 09:26 - CONCLUSION: Persistent high-grade subtotal occlusive stenotic lesions in the distal right vertebral artery and proximal basilar artery with significant improvement in flow and recanalization following initial presentation of thrombosis. Stable interstitial circulation without significant stenosis. 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 There is decreasing restricted diffusion and increasing loss of volume characteristic of a subacute to chronic infarct. No evidence of acute infarct, acute hemorrhage mass or edema. Ernesto Kulkarni MD Head CT 01/16/16 0000 Signed Impressions: Service Date/Time: Saturday, January 16, 2016 10:51 - CONCLUSION: No extensive low density in the brainstem colin more prominent in the right the left extending into the right middle cerebellar peduncle consistent with brainstem infarct nonhemorrhagic acute Wellington West MD Abdomen X-Ray 01/14/16 0000 Signed Impressions: Service Date/Time: Thursday, January 14, 2016 10:19 - CONCLUSION: Moderate stool; otherwise, negative. 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 No evidence of carotid stenosis. Glen Zamora MD Head/Brain Mag Res Venography 12/22/15 0000 Signed Impressions: Service Date/Time: Tuesday, December 22, 2015 09:22 - CONCLUSION: Normal MRV. Jonel Jones Jr., MD Objective Remarks General: No acute distress. Trach. Heart: Regular rate and rhythm. No murmur. Lungs: Clear to auscultation bilaterally. No wheezes, rales, or rhonchi. Breathing is nonlabored. Abdomen: Soft, nontender, nondistended. Extremities: No lower extremity edema. SCDs. Psych: Alert. Nonverbal. Does not track or follow commands. Procedures 01/02/16 PEG placement 01/02/16 tracheostomy 07/22/2016 Wide excision of sacral skin wound, biopsy of the cavity lining and debridement. PEG tube replacement 07/29/16 Urinary Catheter: Yes Assessment to: Continue Arevalo insert reason: Obstruction/Retention Date of Insertion: Aug 03, 2016 Vascular Central Line Catheter: No A/P Problem List: (1) CVA (cerebral vascular accident) ICD Code: I63.9 Status: Acute (2) A-fib ICD Code: I48.91 Status: Chronic (3) DM (diabetes mellitus) ICD Code: E11.9 Status: Chronic Assessment and Plan Reviewed/updated 08/12/16. No change. 1. 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 Patient is nonverbal. Continue Keppra for seizure prophylaxis. PT/OT signed off as patient is unable to participate. 2. Chronic respiratory failure: Secondary to CVA. Status post tracheostomy. Continue pulmonary toilet and bronchodilators as needed. Continue trach care, suctioning. Levsin as needed. 3. Atrial fibrillation: Continue rate control with Cardizem and metoprolol. Echocardiogram in November 2015 shows preserved ejection fraction. Coumadin discontinued secondary to bleeding. Continue aspirin and prophylactic heparin dose. 4. History of non-Hodgkin's lymphoma: Status post brain biopsy on December 13 by neurosurgery. Pathology consistent with acute infarct without evidence of lymphoma. Oncology signed off. 5. Diabetes mellitus: Hemoglobin A1c is 7. Continue Levemir. Monitor Accu-Cheks and cover with sliding scale insulin. 6. Decubitus ulcer stage IV: Continue wound care, twice-daily dressing changes.. Wound care recommendations. Continue pressure relief measures including turning and positioning. Patient's family has declined a diverting colostomy. Wound culture growing Klebsiella. Antibiotics per infectious disease. Status post wide excision of sacral skin and biopsy of the cavity lining with debridement on 07/22/16. 7. Gastric ulcer, reflux esophagitis: EGD on 07/30/16 showed gastric ulcers. Appreciate GI recommendations. Continue PPI. H&H stable. 8. FEN: Continue Nepro tube feeds. Appreciate dietary recommendations. Continue free water flushes. Supplement potassium. 9. Poor prognosis. 10. DVT prophylaxis: SCDs. Problem Qualifiers (1) DM (diabetes mellitus): Qualified Code: E11.9 - Type 2 diabetes mellitus without complications Obed Henry MD Aug 12, 2016 11:02
[2016-08-12] MEDS: PANTOPRAZOLE SODIUM 40 MG VIAL IV PUSH SCH ×2 (11:46→21:47)
[2016-08-12] MEDS: PARoxetine HCL SUSP 20 MG/10 ML UDC PEG SCH (18:40)
[2016-08-12] MEDS: INSULIN DETEMIR 100 UNITS/ML VIAL SQ SCH (21:31)
[2016-08-13] VITALS (8 sets, daily range): BP systolic 117–137; BP diastolic 75–82; PULSE 85–100; RESP 18–20; TEMP 97.3–98.9; O2SAT 96–99
[2016-08-13] MEDS: FREE WATER TUBE SCH ×7 (04:00→23:48)
[2016-08-13] MEDS: ACETAMINOPHEN/HYDROcodone 325 MG/5 MG TAB PEG SCH ×5 (05:53→23:48)
[2016-08-13] MEDS: LACTATED RINGER'S 1000 ML IV SCH (05:54)
[2016-08-13] MEDS: ACETIC ACID 0.25% SOLN 1000 ML IRR BTL IRRIGATION SCH ×3 (05:54→22:53)
[2016-08-13] MEDS: HEPARIN SODIUM - SQ 10,000 UNITS/ML VIAL SQ SCH ×3 (05:54→22:00)
[2016-08-13] MEDS: INSULIN ASPART SUPPLEMENTAL SCALE SQ SCH (06:40)
[2016-08-13] MEDS: levETIRAcetam 500 MG/5 ML UDC TUBE SCH ×2 (08:11→22:50)
[2016-08-13] MEDS: POTASSIUM CHLORIDE 25 MEQ EFFERVESCENT TAB TUBE SCH (08:18)
[2016-08-13] MEDS: METOPROLOL TARTRATE 50 MG TAB PO SCH ×2 (08:18→22:50)
[2016-08-13] MEDS: DILTIAZEM HCL 90 MG TAB PEG SCH ×4 (08:19→22:50)
[2016-08-13] MEDS: LINEZOLID 600 MG TAB PO SCH ×2 (08:19→22:50)
[2016-08-13] MEDS: SODIUM CHLORIDE 0.65% NASAL SPRAY 45 ML BTL NASAL SCH ×2 (08:19→21:00)
[2016-08-13] MEDS: LACTOBACILLUS ACIDOPHILUS TAB PEG SCH ×3 (08:19→18:46)
[2016-08-13] MEDS: ASPIRIN 325 MG TAB TUBE SCH (08:19)
[2016-08-13] MEDS: BACITRACIN TOP OINT 15 GM TUBE TOP SCH ×2 (08:23→22:52)
[2016-08-13] MEDS: ARTIFICIAL TEARS OPTH OINT 3.5 APPLIC/3.5 GM TUBO EACH EYE SCH ×2 (08:32→22:51)
[2016-08-13] MEDS: NYSTATIN 100,000 U/GM PWD 15 GM BTL TOPICAL SCH ×2 (09:00→22:53)
[2016-08-13] MEDS: PANTOPRAZOLE SODIUM 40 MG VIAL IV PUSH SCH ×2 (10:30→22:50)
--- NOTE | 2016-08-13 11:59 | HHI.PR ---
Subjective Remarks Follow up encephalopathy, respiratory failure. Patient's PEG tube became clogged last night. GI has been consulted to re-evaluate/replace the tube. No other events per nursing. Objective Vitals Vital Signs Date Time Temp Pulse Resp B/P Pulse Ox O2 Delivery O2 Flow Rate FiO2 08/13/16 08:00 98.4 97 19 124/76 97 08/13/16 07:48 97 T-piece 6.00 28 08/13/16 07:48 97 T-piece 6.00 28 08/13/16 05:44 98.8 89 19 137/77 97 08/13/16 00:30 97.9 85 19 118/75 97 08/12/16 22:00 98 T-Piece 28 08/12/16 21:45 97.2 91 20 116/74 98 08/12/16 20:40 99 T-piece 28 08/12/16 20:40 99 T-piece 28 08/12/16 16:00 95.3 92 19 122/70 99 08/12/16 15:53 98 T-Piece 6.00 28 08/12/16 12:00 96.3 91 19 100/69 98 I/O 08/12/16 08/12/16 08/12/16 08/13/16 08/13/16 08/13/16 07:00 15:00 23:00 07:00 15:00 23:00 Intake Total 0 ml 0 ml Output Total 800 ml 600 ml 800 ml 500 ml Balance -800 ml -600 ml -800 ml -500 ml Intake Oral 0 ml 0 ml Output Urine Total 800 ml 600 ml 800 ml 500 ml # Bowel Movements 0 0 0 Imaging Last Impressions Chest X-Ray 08/01/16 0000 Signed Impressions: Service Date/Time: July 13:51 - CONCLUSION: 1. Stable mild airspace opacity at the left lung base representing either atelectasis or airspace consolidation. 2. New subsegmental atelectasis at the right lung base. Glen Gordon MD Abdomen/Pelvis CT 04/12/16 0000 Signed Impressions: Service Date/Time: Tuesday, April 12, 2016 20:52 - CONCLUSION: 1. 6.4 cm necrotic mass or abscess in the soft tissues posteriorly just below the sacrum associated with some bony destructive change of the lower most sacrum and coccyx with inflammatory changes extending into the ischiorectal fossa and into the presacral retroperitoneum predominantly on the left side. There is associated fairly marked mural thickening of the anal verge and rectum. 2. There is gastrostomy and Arevalo catheter present. Stable abdominal aortic aneurysm. Durga Dotson MD Head Magnetic Resonance Angiography 03/05/16 0000 Signed Impressions: Service Date/Time: Saturday, March 05, 2016 09:26 - CONCLUSION: Persistent high-grade subtotal occlusive stenotic lesions in the distal right vertebral artery and proximal basilar artery with significant improvement in flow and recanalization following initial presentation of thrombosis. Stable interstitial circulation without significant stenosis. 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 There is decreasing restricted diffusion and increasing loss of volume characteristic of a subacute to chronic infarct. No evidence of acute infarct, acute hemorrhage mass or edema. Ernesto Kulkarni MD Head CT 01/16/16 0000 Signed Impressions: Service Date/Time: Saturday, January 16, 2016 10:51 - CONCLUSION: No extensive low density in the brainstem colin more prominent in the right the left extending into the right middle cerebellar peduncle consistent with brainstem infarct nonhemorrhagic acute Wellington West MD Abdomen X-Ray 01/14/16 0000 Signed Impressions: Service Date/Time: Thursday, January 14, 2016 10:19 - CONCLUSION: Moderate stool; otherwise, negative. 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 No evidence of carotid stenosis. Glen Zamora MD Head/Brain Mag Res Venography 12/22/15 0000 Signed Impressions: Service Date/Time: Tuesday, December 22, 2015 09:22 - CONCLUSION: Normal MRV. Jonel Jones Jr., MD Objective Remarks General: No acute distress. Trach. Heart: Regular rate and rhythm. No murmur. Lungs: Clear to auscultation bilaterally. No wheezes, rales, or rhonchi. Breathing is nonlabored. Abdomen: Soft, nontender, nondistended. Extremities: No lower extremity edema. SCDs. Psych: Alert. Nonverbal. Does not track or follow commands. Procedures 01/02/16 PEG placement 01/02/16 tracheostomy 07/22/2016 Wide excision of sacral skin wound, biopsy of the cavity lining and debridement. PEG tube replacement 07/29/16 Urinary Catheter: Yes Assessment to: Continue Arevalo insert reason: Obstruction/Retention Date of Insertion: Aug 03, 2016 Vascular Central Line Catheter: No A/P Problem List: (1) CVA (cerebral vascular accident) ICD Code: I63.9 Status: Acute (2) A-fib ICD Code: I48.91 Status: Chronic (3) DM (diabetes mellitus) ICD Code: E11.9 Status: Chronic Assessment and Plan Reviewed/updated 08/13/16. GI consulted to evaluate clogged PEG tube. Tube feedings on hold. 1. 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 Patient is nonverbal. Continue Keppra for seizure prophylaxis. PT/OT signed off as patient is unable to participate. 2. Chronic respiratory failure: Secondary to CVA. Status post tracheostomy. Continue pulmonary toilet and bronchodilators as needed. Continue trach care, suctioning. Levsin as needed. 3. Atrial fibrillation: Continue rate control with Cardizem and metoprolol. Echocardiogram in November 2015 shows preserved ejection fraction. Coumadin discontinued secondary to bleeding. Continue aspirin and prophylactic heparin dose. 4. History of non-Hodgkin's lymphoma: Status post brain biopsy on December 13 by neurosurgery. Pathology consistent with acute infarct without evidence of lymphoma. Oncology signed off. 5. Diabetes mellitus: Hemoglobin A1c is 7. Continue Levemir. Monitor Accu-Cheks and cover with sliding scale insulin. 6. Decubitus ulcer stage IV: Continue wound care, twice-daily dressing changes.. Wound care recommendations. Continue pressure relief measures including turning and positioning. Patient's family has declined a diverting colostomy. Wound culture growing Klebsiella. Antibiotics per infectious disease. Status post wide excision of sacral skin and biopsy of the cavity lining with debridement on 07/22/16. 7. Gastric ulcer, reflux esophagitis: EGD on 07/30/16 showed gastric ulcers. Appreciate GI recommendations. Continue PPI. H&H stable. 8. FEN: Continue Nepro tube feeds. Appreciate dietary recommendations. Continue free water flushes. Supplement potassium. 9. Poor prognosis. 10. DVT prophylaxis: SCDs. Problem Qualifiers (1) DM (diabetes mellitus): Qualified Code: E11.9 - Type 2 diabetes mellitus without complications Obed Henry MD Aug 13, 2016 11:59
--- NOTE | 2016-08-13 12:11 | HHI.GIFU ---
Subjective Remarks GI consulted for malfunctioning/clogged feeding tube. Resting in bed in no distress. Pt has G/J tube that was placed by Dr. Gibbons on 07/30/16. J tube clogged. Went to flush the J tube with warm water and a hole was noted in the tubing itself with water coming out of this hole in the tubing. (Cielo Sorensen) Objective Vitals I&O Vital Signs Date Time Temp Pulse Resp B/P Pulse Ox O2 Delivery O2 Flow Rate FiO2 08/13/16 08:00 98.4 97 19 124/76 97 08/13/16 07:48 97 T-piece 6.00 28 08/13/16 07:48 97 T-piece 6.00 28 08/13/16 05:44 98.8 89 19 137/77 97 08/13/16 00:30 97.9 85 19 118/75 97 08/12/16 22:00 98 T-Piece 28 08/12/16 21:45 97.2 91 20 116/74 98 08/12/16 20:40 99 T-piece 28 08/12/16 20:40 99 T-piece 28 08/12/16 16:00 95.3 92 19 122/70 99 08/12/16 15:53 98 T-Piece 6.00 28 I/O 08/12/16 08/12/16 08/12/16 08/13/16 08/13/16 08/13/16 07:00 15:00 23:00 07:00 15:00 23:00 Intake Total 0 ml 0 ml Output Total 800 ml 600 ml 800 ml 500 ml Balance -800 ml -600 ml -800 ml -500 ml Intake Oral 0 ml 0 ml Output Urine Total 800 ml 600 ml 800 ml 500 ml # Bowel Movements 0 0 0 Imaging Last Impressions Chest X-Ray 08/01/16 0000 Signed Impressions: Service Date/Time: July 13:51 - CONCLUSION: 1. Stable mild airspace opacity at the left lung base representing either atelectasis or airspace consolidation. 2. New subsegmental atelectasis at the right lung base. Glen Gordon MD Abdomen/Pelvis CT 04/12/16 0000 Signed Impressions: Service Date/Time: Tuesday, April 12, 2016 20:52 - CONCLUSION: 1. 6.4 cm necrotic mass or abscess in the soft tissues posteriorly just below the sacrum associated with some bony destructive change of the lower most sacrum and coccyx with inflammatory changes extending into the ischiorectal fossa and into the presacral retroperitoneum predominantly on the left side. There is associated fairly marked mural thickening of the anal verge and rectum. 2. There is gastrostomy and Arevalo catheter present. Stable abdominal aortic aneurysm. Durga Dotson MD Head Magnetic Resonance Angiography 03/05/16 0000 Signed Impressions: Service Date/Time: Saturday, March 05, 2016 09:26 - CONCLUSION: Persistent high-grade subtotal occlusive stenotic lesions in the distal right vertebral artery and proximal basilar artery with significant improvement in flow and recanalization following initial presentation of thrombosis. Stable interstitial circulation without significant stenosis. 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 There is decreasing restricted diffusion and increasing loss of volume characteristic of a subacute to chronic infarct. No evidence of acute infarct, acute hemorrhage mass or edema. Ernesto Kulkarni MD Head CT 01/16/16 0000 Signed Impressions: Service Date/Time: Saturday, January 16, 2016 10:51 - CONCLUSION: No extensive low density in the brainstem colin more prominent in the right the left extending into the right middle cerebellar peduncle consistent with brainstem infarct nonhemorrhagic acute Wellington West MD Abdomen X-Ray 01/14/16 0000 Signed Impressions: Service Date/Time: Thursday, January 14, 2016 10:19 - CONCLUSION: Moderate stool; otherwise, negative. 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 No evidence of carotid stenosis. Glen Zamora MD Head/Brain Mag Res Venography 12/22/15 0000 Signed Impressions: Service Date/Time: Tuesday, December 22, 2015 09:22 - CONCLUSION: Normal MRV. Jonel Jones Jr., MD Physical Exam HEENT: Normocephalic; atraumatic; no jaundice. CHEST: Scattered rhonchi. Tracheostomy, to TBar CARDIAC: RRR. ABDOMEN: Soft, round, nondistended, nontender; no hepatosplenomegaly; bowel sounds are present in all four quadrants. GJ tube site clean- tube itself with hole in tubing and contents coming out from side of tube. EXTREMITIES: Generalized edema. 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 S/P EGD with placement G/J tube (08/04/16)---> Gastric ulcer, reflux esophagitis, residual gastric juices by Dr. Gibbons. Now with J tube clogged. Went to flush the tube, but hole was noted in the side of the tubing and when I attempted to flush the tube, this came out of the side. Will ask IR to place G/J tube via existing site. - Gastric ulcer. Cont. PPI. Monitor HH. Rpt. EGD in 2-3 months. PLAN: - NPO - Consult IR to place G/J tube via existing site. - Cont. PPI - Monitor HH - Monitor for active bleeding - EGD in 2-3 months, sooner if active bleeding - Pt seen and examined by Dr. Becerril and myself and this note is written on her behalf (Cielo Sorensen) Physician Comments seen, examined agree with above (Denita Becerril MD) Cielo Sorensen Aug 13, 2016 12:11 Denita Becerril MD Aug 13, 2016 18:47
[2016-08-13] MEDS: PARoxetine HCL SUSP 20 MG/10 ML UDC PEG SCH (18:47)
[2016-08-13] MEDS: INSULIN DETEMIR 100 UNITS/ML VIAL SQ SCH (21:00)
[2016-08-13] MEDS: DOCUSATE SODIUM 100 MG/10 ML UDC PO PRN (23:18)
[2016-08-14] VITALS (9 sets, daily range): BP systolic 95–143; BP diastolic 69–89; PULSE 76–105; RESP 19–20; TEMP 96.5–98; O2SAT 10–100
[2016-08-14] MEDS: FREE WATER TUBE SCH ×5 (04:00→20:00)
[2016-08-14] MEDS: ACETAMINOPHEN/HYDROcodone 325 MG/5 MG TAB PEG SCH ×3 (06:00→18:00)
[2016-08-14] MEDS: HEPARIN SODIUM - SQ 10,000 UNITS/ML VIAL SQ SCH ×3 (06:00→21:28)
[2016-08-14] MEDS: ACETIC ACID 0.25% SOLN 1000 ML IRR BTL IRRIGATION SCH ×3 (06:00→21:51)
[2016-08-14] MEDS: INSULIN ASPART SUPPLEMENTAL SCALE SQ SCH (06:50)
[2016-08-14] MEDS: DILTIAZEM HCL 90 MG TAB PEG SCH ×5 (08:31→21:27)
[2016-08-14] MEDS: LACTOBACILLUS ACIDOPHILUS TAB PEG SCH ×4 (08:31→18:31)
[2016-08-14] MEDS: SODIUM CHLORIDE 0.65% NASAL SPRAY 45 ML BTL NASAL SCH ×2 (08:31→21:00)
[2016-08-14] MEDS: ARTIFICIAL TEARS OPTH OINT 3.5 APPLIC/3.5 GM TUBO EACH EYE SCH ×2 (08:31→21:00)
[2016-08-14] MEDS: BACITRACIN TOP OINT 15 GM TUBE TOP SCH ×2 (08:32→21:52)
[2016-08-14] MEDS: LINEZOLID 600 MG TAB PO SCH ×3 (08:32→21:27)
[2016-08-14] MEDS: METOPROLOL TARTRATE 50 MG TAB PO SCH ×3 (08:32→21:27)
[2016-08-14] MEDS: NYSTATIN 100,000 U/GM PWD 15 GM BTL TOPICAL SCH ×2 (08:33→21:52)
[2016-08-14] MEDS: ASPIRIN 325 MG TAB TUBE SCH (08:33)
[2016-08-14] MEDS: POTASSIUM CHLORIDE 25 MEQ EFFERVESCENT TAB TUBE SCH ×2 (08:33→11:06)
[2016-08-14] MEDS: levETIRAcetam 500 MG/5 ML UDC TUBE SCH ×3 (08:33→21:27)
[2016-08-14] MEDS: PANTOPRAZOLE SODIUM 40 MG VIAL IV PUSH SCH ×2 (10:53→21:29)
--- NOTE | 2016-08-14 11:59 | HHI.PR ---
Subjective Remarks Follow up encephalopathy, respiratory failure. No changes per nursing. Patient nonverbal. Had BM today. PEG tube to be replaced today. Objective Vitals Vital Signs Date Time Temp Pulse Resp B/P Pulse Ox O2 Delivery O2 Flow Rate FiO2 08/14/16 09:38 94 T-piece 6.00 28 08/14/16 09:38 94 T-piece 6.00 28 08/14/16 08:53 97.4 84 20 133/82 100 08/14/16 05:10 97.6 84 19 143/86 100 08/14/16 00:39 97.4 94 19 100/83 100 08/14/16 00:38 97.4 94 19 100/83 10 08/13/16 21:10 99 T-Piece 28 08/13/16 20:19 97.3 90 18 117/75 96 08/13/16 16:00 97.9 92 20 121/77 99 08/13/16 14:02 18 08/13/16 12:00 98.9 100 20 122/82 97 I/O 08/13/16 08/13/16 08/13/16 08/14/16 08/14/16 08/14/16 07:00 15:00 23:00 07:00 15:00 23:00 Intake Total 0 ml Output Total 500 ml 250 ml 700 ml Balance -500 ml -250 ml -700 ml Intake Oral 0 ml Output Urine Total 500 ml 250 ml 700 ml # Bowel Movements 0 1 Imaging Last Impressions Chest X-Ray 08/01/16 0000 Signed Impressions: Service Date/Time: July 13:51 - CONCLUSION: 1. Stable mild airspace opacity at the left lung base representing either atelectasis or airspace consolidation. 2. New subsegmental atelectasis at the right lung base. Glen Gordon MD Abdomen/Pelvis CT 04/12/16 0000 Signed Impressions: Service Date/Time: Tuesday, April 12, 2016 20:52 - CONCLUSION: 1. 6.4 cm necrotic mass or abscess in the soft tissues posteriorly just below the sacrum associated with some bony destructive change of the lower most sacrum and coccyx with inflammatory changes extending into the ischiorectal fossa and into the presacral retroperitoneum predominantly on the left side. There is associated fairly marked mural thickening of the anal verge and rectum. 2. There is gastrostomy and Arevalo catheter present. Stable abdominal aortic aneurysm. Durga Dotson MD Head Magnetic Resonance Angiography 03/05/16 0000 Signed Impressions: Service Date/Time: Saturday, March 05, 2016 09:26 - CONCLUSION: Persistent high-grade subtotal occlusive stenotic lesions in the distal right vertebral artery and proximal basilar artery with significant improvement in flow and recanalization following initial presentation of thrombosis. Stable interstitial circulation without significant stenosis. 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 There is decreasing restricted diffusion and increasing loss of volume characteristic of a subacute to chronic infarct. No evidence of acute infarct, acute hemorrhage mass or edema. Ernesto Kulkarni MD Head CT 01/16/16 0000 Signed Impressions: Service Date/Time: Saturday, January 16, 2016 10:51 - CONCLUSION: No extensive low density in the brainstem colin more prominent in the right the left extending into the right middle cerebellar peduncle consistent with brainstem infarct nonhemorrhagic acute Wellington West MD Abdomen X-Ray 01/14/16 0000 Signed Impressions: Service Date/Time: Thursday, January 14, 2016 10:19 - CONCLUSION: Moderate stool; otherwise, negative. 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 No evidence of carotid stenosis. Glen Zamora MD Head/Brain Mag Res Venography 12/22/15 0000 Signed Impressions: Service Date/Time: Tuesday, December 22, 2015 09:22 - CONCLUSION: Normal MRV. Jonel Jones Jr., MD Objective Remarks General: No acute distress. Trach. Heart: Regular rate and rhythm. No murmur. Lungs: Clear to auscultation bilaterally. No wheezes, rales, or rhonchi. Breathing is nonlabored. Abdomen: Soft, nontender, nondistended. Extremities: No lower extremity edema. SCDs. Psych: Alert. Nonverbal. Does not track or follow commands. Procedures 01/02/16 PEG placement 01/02/16 tracheostomy 07/22/2016 Wide excision of sacral skin wound, biopsy of the cavity lining and debridement. PEG tube replacement 07/29/16 Urinary Catheter: Yes Assessment to: Continue Arevalo insert reason: Obstruction/Retention Date of Insertion: Aug 03, 2016 Vascular Central Line Catheter: No A/P Problem List: (1) CVA (cerebral vascular accident) ICD Code: I63.9 Status: Acute (2) A-fib ICD Code: I48.91 Status: Chronic (3) DM (diabetes mellitus) ICD Code: E11.9 Status: Chronic Assessment and Plan Reviewed/updated 08/14/16. Radiology consulted to replace PEG tube. Start IV fluids to prevent dehydration while tube feeds are on hold. 1. 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 Patient is nonverbal. Continue Keppra for seizure prophylaxis. PT/OT signed off as patient is unable to participate. 2. Chronic respiratory failure: Secondary to CVA. Status post tracheostomy. Continue pulmonary toilet and bronchodilators as needed. Continue trach care, suctioning. Levsin as needed. 3. Atrial fibrillation: Continue rate control with Cardizem and metoprolol. Echocardiogram in November 2015 shows preserved ejection fraction. Coumadin discontinued secondary to bleeding. Continue aspirin and prophylactic heparin dose. 4. History of non-Hodgkin's lymphoma: Status post brain biopsy on December 13 by neurosurgery. Pathology consistent with acute infarct without evidence of lymphoma. Oncology signed off. 5. Diabetes mellitus: Hemoglobin A1c is 7. Continue Levemir. Monitor Accu-Cheks and cover with sliding scale insulin. 6. Decubitus ulcer stage IV: Continue wound care, twice-daily dressing changes.. Wound care recommendations. Continue pressure relief measures including turning and positioning. Patient's family has declined a diverting colostomy. Wound culture growing Klebsiella. Antibiotics per infectious disease. Status post wide excision of sacral skin and biopsy of the cavity lining with debridement on 07/22/16. 7. Gastric ulcer, reflux esophagitis: EGD on 07/30/16 showed gastric ulcers. Appreciate GI recommendations. Continue PPI. H&H stable. 8. FEN: Continue Nepro tube feeds. Appreciate dietary recommendations. Continue free water flushes. Supplement potassium. 9. Poor prognosis. 10. DVT prophylaxis: SCDs. Problem Qualifiers (1) DM (diabetes mellitus): Qualified Code: E11.9 - Type 2 diabetes mellitus without complications Obed Henry MD Aug 14, 2016 11:59
--- NOTE | 2016-08-14 13:46 | HHI.GIFU ---
Subjective Remarks Resting in bed. No distress. Going for G/J tube placement by IR today. Objective Vitals I&O Vital Signs Date Time Temp Pulse Resp B/P Pulse Ox O2 Delivery O2 Flow Rate FiO2 08/14/16 13:20 98.0 103 20 133/89 99 08/14/16 09:38 94 T-piece 6.00 28 08/14/16 09:38 94 T-piece 6.00 28 08/14/16 08:53 97.4 84 20 133/82 100 08/14/16 05:10 97.6 84 19 143/86 100 08/14/16 00:39 97.4 94 19 100/83 100 08/14/16 00:38 97.4 94 19 100/83 10 08/13/16 21:10 99 T-Piece 28 08/13/16 20:19 97.3 90 18 117/75 96 08/13/16 16:00 97.9 92 20 121/77 99 08/13/16 14:02 18 I/O 08/13/16 08/13/16 08/13/16 08/14/16 08/14/16 08/14/16 07:00 15:00 23:00 07:00 15:00 23:00 Intake Total 0 ml Output Total 500 ml 250 ml 700 ml Balance -500 ml -250 ml -700 ml Intake Oral 0 ml Output Urine Total 500 ml 250 ml 700 ml # Bowel Movements 0 1 Imaging Last Impressions Chest X-Ray 08/01/16 0000 Signed Impressions: Service Date/Time: July 13:51 - CONCLUSION: 1. Stable mild airspace opacity at the left lung base representing either atelectasis or airspace consolidation. 2. New subsegmental atelectasis at the right lung base. Glen Gordon MD Abdomen/Pelvis CT 04/12/16 0000 Signed Impressions: Service Date/Time: Tuesday, April 12, 2016 20:52 - CONCLUSION: 1. 6.4 cm necrotic mass or abscess in the soft tissues posteriorly just below the sacrum associated with some bony destructive change of the lower most sacrum and coccyx with inflammatory changes extending into the ischiorectal fossa and into the presacral retroperitoneum predominantly on the left side. There is associated fairly marked mural thickening of the anal verge and rectum. 2. There is gastrostomy and Arevalo catheter present. Stable abdominal aortic aneurysm. Durga Dotson MD Head Magnetic Resonance Angiography 03/05/16 0000 Signed Impressions: Service Date/Time: Saturday, March 05, 2016 09:26 - CONCLUSION: Persistent high-grade subtotal occlusive stenotic lesions in the distal right vertebral artery and proximal basilar artery with significant improvement in flow and recanalization following initial presentation of thrombosis. Stable interstitial circulation without significant stenosis. 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 There is decreasing restricted diffusion and increasing loss of volume characteristic of a subacute to chronic infarct. No evidence of acute infarct, acute hemorrhage mass or edema. Ernesto Kulkarni MD Head CT 01/16/16 0000 Signed Impressions: Service Date/Time: Saturday, January 16, 2016 10:51 - CONCLUSION: No extensive low density in the brainstem colin more prominent in the right the left extending into the right middle cerebellar peduncle consistent with brainstem infarct nonhemorrhagic acute Wellington West MD Abdomen X-Ray 01/14/16 0000 Signed Impressions: Service Date/Time: Thursday, January 14, 2016 10:19 - CONCLUSION: Moderate stool; otherwise, negative. 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 No evidence of carotid stenosis. Glen Zamora MD Head/Brain Mag Res Venography 12/22/15 0000 Signed Impressions: Service Date/Time: Tuesday, December 22, 2015 09:22 - CONCLUSION: Normal MRV. Jonel Jones Jr., MD Physical Exam HEENT: Normocephalic; atraumatic; no jaundice. CHEST: Scattered rhonchi. Tracheostomy, to TBar CARDIAC: RRR. ABDOMEN: Soft, round, nondistended, nontender; no hepatosplenomegaly; bowel sounds are present in all four quadrants. GJ tube site clean- tube itself with hole in tubing and contents coming out from side of tube. EXTREMITIES: Generalized edema. 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 S/P EGD with placement G/J tube (08/04/16)---> Gastric ulcer, reflux esophagitis, residual gastric juices by Dr. Gibbons. Now with J tube clogged. Went to flush the tube, but hole was noted in the side of the tubing and when I attempted to flush the tube, this came out of the side. IR consulted for G /J tube placement via existing site. Scheduled for today according to nurse. - Gastric ulcer. Cont. PPI. Monitor HH. Rpt. EGD in 2-3 months. PLAN: - NPO - IR consulted for placement of G/J tube via existing site. - Cont. PPI - Monitor HH - Monitor for active bleeding - EGD in 2-3 months, sooner if active bleeding - Pt seen and examined by Dr. Becerril and myself and this note is written on her behalf Cielo Sorensen Aug 14, 2016 13:46
--- NOTE | 2016-08-14 15:57 | PD.RAD ---
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 New tube in good position OK for use See PACS Report for procedural detail/treatment Moises Ramírez MD Aug 14, 2016 15:57
[2016-08-14] MEDS: PARoxetine HCL SUSP 20 MG/10 ML UDC PEG SCH (18:31)
[2016-08-14] MEDS: INSULIN DETEMIR 100 UNITS/ML VIAL SQ SCH (21:00)
[2016-08-15] VITALS (9 sets, daily range): BP systolic 101–125; BP diastolic 66–87; PULSE 83–98; RESP 20–22; TEMP 96.5–97.8; O2SAT 97–99
[2016-08-15] MEDS: ACETAMINOPHEN/HYDROcodone 325 MG/5 MG TAB PEG SCH ×5 (00:41→22:52)
[2016-08-15] MEDS: FREE WATER TUBE SCH ×6 (04:00→20:00)
[2016-08-15] MEDS: HEPARIN SODIUM - SQ 10,000 UNITS/ML VIAL SQ SCH ×3 (06:16→22:52)
[2016-08-15] MEDS: INSULIN ASPART SUPPLEMENTAL SCALE SQ SCH (06:17)
[2016-08-15] MEDS: ACETIC ACID 0.25% SOLN 1000 ML IRR BTL IRRIGATION SCH ×2 (06:17→22:54)
[2016-08-15 07:39] LABS: AUTOMATED NEUTROPHIL # 2.8 TH/MM3 (1.8-7.7); BASOPHIL # 0.1 TH/MM3 (0-0.2); BASOPHIL % 1.2 % (0.0-2.0); EOSINOPHIL # 0.2 TH/MM3 (0-0.4); EOSINOPHIL % 3.7 % (0.0-4.0); HEMATOCRIT 30.1 % (39.0-51.0); LYMPH % 27.9 % (9.0-44.0); LYMPHOCYTE # 1.3 TH/MM3 (1.0-4.8); MEAN CELL VOLUME 74.1 FL (80.0-100.0); MEAN CORPUSCULAR HEMOGLOBIN 23.8 PG (27.0-34.0); MEAN CORPUSCULAR HGB CONC 32.2 % (32.0-36.0); MONO % 8.2 % (0.0-8.0); PLATELET COUNT 331 TH/MM3 (150-450); RED BLOOD COUNT 4.06 MIL/MM3 (4.50-5.90); RED CELL DISTRIBUTION WIDTH 19.5 % (11.6-17.2); WHITE BLOOD COUNT 4.7 TH/MM3 (4.0-11.0)
[2016-08-15 07:42] LABS: HEMO FLAGS AUTO DIFF
[2016-08-15 08:15] LABS: BICARBONATE 24.6 MEQ/L (21.0-32.0); POTASSIUM 3.8 MEQ/L (3.5-5.1)
[2016-08-15 08:30] LABS: PLATELET ESTIMATE SMEAR NORMAL (NORMAL); PLATELET MORPHOLOGY NORMAL (NORMAL); SCAN/DIFF AUTO DIFF CONFIRMED
[2016-08-15] MEDS: levETIRAcetam 500 MG/5 ML UDC TUBE SCH ×2 (08:36→22:52)
[2016-08-15] MEDS: DILTIAZEM HCL 90 MG TAB PEG SCH ×4 (08:37→22:57)
[2016-08-15] MEDS: POTASSIUM CHLORIDE 25 MEQ EFFERVESCENT TAB TUBE SCH (08:37)
[2016-08-15] MEDS: LINEZOLID 600 MG TAB PO SCH ×2 (08:37→22:52)
[2016-08-15] MEDS: LACTOBACILLUS ACIDOPHILUS TAB PEG SCH ×3 (08:37→18:34)
[2016-08-15] MEDS: ASPIRIN 325 MG TAB TUBE SCH (08:37)
[2016-08-15] MEDS: METOPROLOL TARTRATE 50 MG TAB PO SCH ×2 (08:38→22:58)
[2016-08-15] MEDS: SODIUM CHLORIDE 0.65% NASAL SPRAY 45 ML BTL NASAL SCH ×2 (08:50→21:00)
[2016-08-15] MEDS: ARTIFICIAL TEARS OPTH OINT 3.5 APPLIC/3.5 GM TUBO EACH EYE SCH ×2 (08:50→22:53)
[2016-08-15] MEDS: NYSTATIN 100,000 U/GM PWD 15 GM BTL TOPICAL SCH ×2 (09:00→22:53)
[2016-08-15] MEDS: BACITRACIN TOP OINT 15 GM TUBE TOP SCH ×2 (09:00→22:54)
[2016-08-15] MEDS: PANTOPRAZOLE SODIUM 40 MG VIAL IV PUSH SCH ×2 (10:15→23:22)
--- NOTE | 2016-08-15 10:52 | RADRPT ---
EXAM DATE/TIME: 08/14/2016 15:11 CORRECTION Corrected on: August 22, 2016; Correction: Added missing exam form information [facility] COMPARISON: LUMBAR PUNCTURE, December 11, 2015, 11:49. INDICATIONS : Patient with history of CVA in need of GJ tube exchange. MEDICAL HISTORY : A-Fib, HTN, Non hodgkins lymphoma, Chemotherapy, Diabetes, AMS SURGICAL HISTORY : Right occipital juan jose hole brain biopsy, Left arm surgery, GJ tube placement ENCOUNTER: Initial ACUITY: 7 - 11 months PAIN SCORE: 0/10 FLUORO TIME: 3.5 minutes SEDATION TIME: 15 minutes CONTRAST: 30 cc Omnipaque (iohexol) 350 MEDICATION(S): 1.) 150 mcg fentanyl (Sublimaze) IV DEVICE(S): 1.) 22 Tamazight Transgastric tube PROCEDURE : 1. Fluoroscopically guided gastrojejunostomy tube exchange. 2. Conscious sedation with continuous EKG and oximetry monitoring. The risks, benefits and alternatives to the procedure were explained and verbal and written consent w as obtained. The site was prepped in sterile fashion. Full sterile technique was used, including ca p, mask, sterile gloves and gown and a large sterile sheet. Hand hygiene and 2% chlorhexidine and/or betadine/alcohol prep was utilized per protocol for cutaneous antisepsis. The skin and subcutaneous tissues were infiltrated with local anesthetic solution. With fluoroscopic guidance a guidewire was passed through the previous gastrojejunostomy tube and a f resh tube was placed over the guidewire. The balloon was inflated with appropriate volume of saline. Injection of positive contrast demonstrates good position of the gastric and jejunal lumens of the tube. Conscious sedation was performed with the prescribed dosages and duration as above. The patient mikhail ated the procedure well and there were no complications. EKG and oximetry remained stable throughout the procedure. The patient was sent to post anesthesia recovery in stable condition. CONCLUSION: Uncomplicated gastrojejunostomy tube exchange as above. Moises Ramírez MD on August 15, 2016 at 10:50 Board Certified Radiologist. This report was verified electronically. DR Ruvalcaba on August 22, 2016 at 10:58 Board Certified Radiologist. This report was verified electronically.
--- NOTE | 2016-08-15 10:59 | HHI.PR ---
Subjective Remarks Follow up tube feeds, respiratory failure. PEG tube replaced yesterday and tube feeds restarted. Objective Vitals Vital Signs Date Time Temp Pulse Resp B/P Pulse Ox O2 Delivery O2 Flow Rate FiO2 08/15/16 08:00 96.5 97 20 125/73 98 08/15/16 04:00 97.3 93 20 125/77 97 08/15/16 00:00 96.7 95 20 121/87 99 08/14/16 23:15 98 T-Piece 28 08/14/16 23:00 91 08/14/16 19:30 96.5 105 20 125/80 90 08/14/16 18:05 T-piece 6.00 28 08/14/16 17:24 97.2 76 20 95/69 97 08/14/16 13:20 98.0 103 20 133/89 99 I/O 08/14/16 08/14/16 08/14/16 08/15/16 08/15/16 08/15/16 07:00 15:00 23:00 07:00 15:00 23:00 Intake Total 0 ml Output Total 700 ml 950 ml Balance -700 ml 0 ml -950 ml Intake Oral 0 ml Output Urine Total 700 ml 950 ml # Bowel Movements 3 Result Diagram: 08/15/1613 08/15/16 0713 Imaging Last Impressions Chest X-Ray 08/01/16 0000 Signed Impressions: Service Date/Time: July 13:51 - CONCLUSION: 1. Stable mild airspace opacity at the left lung base representing either atelectasis or airspace consolidation. 2. New subsegmental atelectasis at the right lung base. Glen Gordon MD Abdomen/Pelvis CT 04/12/16 0000 Signed Impressions: Service Date/Time: Tuesday, April 12, 2016 20:52 - CONCLUSION: 1. 6.4 cm necrotic mass or abscess in the soft tissues posteriorly just below the sacrum associated with some bony destructive change of the lower most sacrum and coccyx with inflammatory changes extending into the ischiorectal fossa and into the presacral retroperitoneum predominantly on the left side. There is associated fairly marked mural thickening of the anal verge and rectum. 2. There is gastrostomy and Arevalo catheter present. Stable abdominal aortic aneurysm. Durga Dotson MD Head Magnetic Resonance Angiography 03/05/16 0000 Signed Impressions: Service Date/Time: Saturday, March 05, 2016 09:26 - CONCLUSION: Persistent high-grade subtotal occlusive stenotic lesions in the distal right vertebral artery and proximal basilar artery with significant improvement in flow and recanalization following initial presentation of thrombosis. Stable interstitial circulation without significant stenosis. 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 There is decreasing restricted diffusion and increasing loss of volume characteristic of a subacute to chronic infarct. No evidence of acute infarct, acute hemorrhage mass or edema. Ernesto Kulkarni MD Head CT 01/16/16 0000 Signed Impressions: Service Date/Time: Saturday, January 16, 2016 10:51 - CONCLUSION: No extensive low density in the brainstem colin more prominent in the right the left extending into the right middle cerebellar peduncle consistent with brainstem infarct nonhemorrhagic acute Wellington West MD Abdomen X-Ray 01/14/16 0000 Signed Impressions: Service Date/Time: Thursday, January 14, 2016 10:19 - CONCLUSION: Moderate stool; otherwise, negative. 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 No evidence of carotid stenosis. Glen Zamora MD Head/Brain Mag Res Venography 12/22/15 0000 Signed Impressions: Service Date/Time: Tuesday, December 22, 2015 09:22 - CONCLUSION: Normal MRV. Jonel Jones Jr., MD Objective Remarks General: No acute distress. Trach. Heart: Regular rate and rhythm. No murmur. Lungs: Clear to auscultation bilaterally. No wheezes, rales, or rhonchi. Breathing is nonlabored. Abdomen: Soft, nontender, nondistended. PEG tube in place. Extremities: No lower extremity edema. SCDs. Psych: Alert. Nonverbal. Does not track or follow commands. Procedures 01/02/16 PEG placement 01/02/16 tracheostomy 07/22/2016 Wide excision of sacral skin wound, biopsy of the cavity lining and debridement. PEG tube replacement 07/29/16 Urinary Catheter: Yes Assessment to: Continue Arevalo insert reason: Obstruction/Retention Date of Insertion: Aug 03, 2016 Vascular Central Line Catheter: No A/P Problem List: (1) CVA (cerebral vascular accident) ICD Code: I63.9 Status: Acute (2) A-fib ICD Code: I48.91 Status: Chronic (3) DM (diabetes mellitus) ICD Code: E11.9 Status: Chronic Assessment and Plan Reviewed/updated 08/15/16. PEG tube replaced. Tube feeds restarted. 1. 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 Patient is nonverbal. Continue Keppra for seizure prophylaxis. PT/OT signed off as patient is unable to participate. 2. Chronic respiratory failure: Secondary to CVA. Status post tracheostomy. Continue pulmonary toilet and bronchodilators as needed. Continue trach care, suctioning. Levsin as needed. 3. Atrial fibrillation: Continue rate control with Cardizem and metoprolol. Echocardiogram in November 2015 shows preserved ejection fraction. Coumadin discontinued secondary to bleeding. Continue aspirin and prophylactic heparin dose. 4. History of non-Hodgkin's lymphoma: Status post brain biopsy on December 13 by neurosurgery. Pathology consistent with acute infarct without evidence of lymphoma. Oncology signed off. 5. Diabetes mellitus: Hemoglobin A1c is 7. Continue Levemir. Monitor Accu-Cheks and cover with sliding scale insulin. 6. Decubitus ulcer stage IV: Continue wound care, twice-daily dressing changes.. Wound care recommendations. Continue pressure relief measures including turning and positioning. Patient's family has declined a diverting colostomy. Wound culture growing Klebsiella. Antibiotics per infectious disease. Status post wide excision of sacral skin and biopsy of the cavity lining with debridement on 07/22/16. 7. Gastric ulcer, reflux esophagitis: EGD on 07/30/16 showed gastric ulcers. Appreciate GI recommendations. Continue PPI. H&H stable. 8. FEN: Continue Nepro tube feeds. Appreciate dietary recommendations. Continue free water flushes. Supplement potassium. 9. Poor prognosis. 10. DVT prophylaxis: SCDs. Problem Qualifiers (1) DM (diabetes mellitus): Qualified Code: E11.9 - Type 2 diabetes mellitus without complications Obed Henry MD Aug 15, 2016 10:58
[2016-08-15] MEDS: PARoxetine HCL SUSP 20 MG/10 ML UDC PEG SCH (18:34)
[2016-08-15] MEDS: INSULIN DETEMIR 100 UNITS/ML VIAL SQ SCH (22:52)
[2016-08-16] VITALS (11 sets, daily range): BP systolic 111–121; BP diastolic 65–78; PULSE 79–90; RESP 20–22; TEMP 95.8–98.2; O2SAT 97–100
[2016-08-16] MEDS: FREE WATER TUBE SCH ×7 (04:00→23:24)
[2016-08-16] MEDS: ACETAMINOPHEN/HYDROcodone 325 MG/5 MG TAB PEG SCH ×4 (05:27→23:24)
[2016-08-16] MEDS: HEPARIN SODIUM - SQ 10,000 UNITS/ML VIAL SQ SCH ×3 (05:27→21:08)
[2016-08-16] MEDS: ACETIC ACID 0.25% SOLN 1000 ML IRR BTL IRRIGATION SCH ×3 (05:30→21:08)
[2016-08-16] MEDS: INSULIN ASPART SUPPLEMENTAL SCALE SQ SCH (05:39)
[2016-08-16] MEDS: LINEZOLID 600 MG TAB PO SCH ×2 (08:30→21:09)
[2016-08-16] MEDS: levETIRAcetam 500 MG/5 ML UDC TUBE SCH ×2 (08:30→21:08)
[2016-08-16] MEDS: POTASSIUM CHLORIDE 25 MEQ EFFERVESCENT TAB TUBE SCH (08:30)
[2016-08-16] MEDS: METOPROLOL TARTRATE 50 MG TAB PO SCH ×2 (08:31→21:08)
[2016-08-16] MEDS: ASPIRIN 325 MG TAB TUBE SCH (08:31)
[2016-08-16] MEDS: DILTIAZEM HCL 90 MG TAB PEG SCH (08:31)
[2016-08-16] MEDS: SODIUM CHLORIDE 0.65% NASAL SPRAY 45 ML BTL NASAL SCH ×2 (08:40→21:00)
[2016-08-16] MEDS: ARTIFICIAL TEARS OPTH OINT 3.5 APPLIC/3.5 GM TUBO EACH EYE SCH ×2 (08:41→21:00)
[2016-08-16] MEDS: LACTOBACILLUS ACIDOPHILUS TAB PEG SCH ×3 (08:49→18:09)
[2016-08-16] MEDS: BACITRACIN TOP OINT 15 GM TUBE TOP SCH ×2 (09:00→21:00)
[2016-08-16] MEDS: NYSTATIN 100,000 U/GM PWD 15 GM BTL TOPICAL SCH ×2 (09:00→21:00)
[2016-08-16] MEDS: DILTIAZEM HCL 30 MG TAB PEG SCH ×3 (12:12→21:09)
[2016-08-16] MEDS: PANTOPRAZOLE SODIUM 40 MG VIAL IV PUSH SCH ×2 (12:15→23:24)
--- NOTE | 2016-08-16 14:47 | HHI.PR ---
Subjective Remarks Follow up encephalopathy, respiratory failure. No events reported by nursing. Objective Vitals Vital Signs Date Time Temp Pulse Resp B/P Pulse Ox O2 Delivery O2 Flow Rate FiO2 08/16/16 14:34 99 T-Piece 28 08/16/16 13:06 98.1 79 20 111/72 99 08/16/16 11:36 99 T-piece 6.00 28 08/16/16 10:20 84 08/16/16 08:40 98.2 89 20 111/65 97 08/16/16 06:15 98 T-piece 28 08/16/16 04:00 96.9 87 22 113/67 100 08/16/16 00:00 96.2 90 22 112/66 97 08/15/16 23:30 89 08/15/16 23:15 98 T-Piece 28 08/15/16 20:00 96.5 98 22 113/73 97 08/15/16 17:15 97.8 83 20 110/74 98 08/15/16 16:37 98 T-Piece 28 I/O 08/15/16 08/15/16 08/15/16 08/16/16 08/16/16 08/16/16 07:00 15:00 23:00 07:00 15:00 23:00 Output Total 950 ml 600 ml 800 ml 750 ml 700 ml Balance -950 ml -600 ml -800 ml -750 ml -700 ml Output Urine Total 950 ml 600 ml 800 ml 750 ml 700 ml # Bowel Movements 3 0 0 Result Diagram: 08/15/16 0713 08/15/16 0713 Imaging Last Impressions Tube Change 08/14/16 0000 Signed Impressions: Service Date/Time: Sunday, August 14, 2016 15:11 - CONCLUSION: Uncomplicated gastrojejunostomy tube exchange as above. Moises Ramírez MD Chest X-Ray 08/01/16 0000 Signed Impressions: Service Date/Time: July 13:51 - CONCLUSION: 1. Stable mild airspace opacity at the left lung base representing either atelectasis or airspace consolidation. 2. New subsegmental atelectasis at the right lung base. Glen Gordon MD Abdomen/Pelvis CT 04/12/16 0000 Signed Impressions: Service Date/Time: Tuesday, April 12, 2016 20:52 - CONCLUSION: 1. 6.4 cm necrotic mass or abscess in the soft tissues posteriorly just below the sacrum associated with some bony destructive change of the lower most sacrum and coccyx with inflammatory changes extending into the ischiorectal fossa and into the presacral retroperitoneum predominantly on the left side. There is associated fairly marked mural thickening of the anal verge and rectum. 2. There is gastrostomy and Arevalo catheter present. Stable abdominal aortic aneurysm. Durga Dotson MD Head Magnetic Resonance Angiography 03/05/16 0000 Signed Impressions: Service Date/Time: Saturday, March 05, 2016 09:26 - CONCLUSION: Persistent high-grade subtotal occlusive stenotic lesions in the distal right vertebral artery and proximal basilar artery with significant improvement in flow and recanalization following initial presentation of thrombosis. Stable interstitial circulation without significant stenosis. 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 There is decreasing restricted diffusion and increasing loss of volume characteristic of a subacute to chronic infarct. No evidence of acute infarct, acute hemorrhage mass or edema. Ernesto Kulkarni MD Head CT 01/16/16 0000 Signed Impressions: Service Date/Time: Saturday, January 16, 2016 10:51 - CONCLUSION: No extensive low density in the brainstem colin more prominent in the right the left extending into the right middle cerebellar peduncle consistent with brainstem infarct nonhemorrhagic acute Wellington West MD Abdomen X-Ray 01/14/16 0000 Signed Impressions: Service Date/Time: Thursday, January 14, 2016 10:19 - CONCLUSION: Moderate stool; otherwise, negative. 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 No evidence of carotid stenosis. Glen Zamora MD Head/Brain Mag Res Venography 12/22/15 0000 Signed Impressions: Service Date/Time: Tuesday, December 22, 2015 09:22 - CONCLUSION: Normal MRV. Jonel Jones Jr., MD Objective Remarks General: No acute distress. Trach. Heart: Regular rate and rhythm. No murmur. Lungs: Clear to auscultation bilaterally. No wheezes, rales, or rhonchi. Breathing is nonlabored. Abdomen: Soft, nontender, nondistended. PEG tube in place. Extremities: No lower extremity edema. SCDs. Psych: Alert. Nonverbal. Does not track or follow commands. Procedures 01/02/16 PEG placement 01/02/16 tracheostomy 07/22/2016 Wide excision of sacral skin wound, biopsy of the cavity lining and debridement. PEG tube replacement 07/29/16 Urinary Catheter: Yes Assessment to: Continue Arevalo insert reason: Obstruction/Retention Date of Insertion: Aug 03, 2016 Vascular Central Line Catheter: No A/P Problem List: (1) CVA (cerebral vascular accident) ICD Code: I63.9 Status: Acute (2) A-fib ICD Code: I48.91 Status: Chronic (3) DM (diabetes mellitus) ICD Code: E11.9 Status: Chronic Assessment and Plan Reviewed/updated 08/16/16. No change. 1. 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 Patient is nonverbal. Continue Keppra for seizure prophylaxis. PT/OT signed off as patient is unable to participate. 2. Chronic respiratory failure: Secondary to CVA. Status post tracheostomy. Continue pulmonary toilet and bronchodilators as needed. Continue trach care, suctioning. Levsin as needed. 3. Atrial fibrillation: Continue rate control with Cardizem and metoprolol. Echocardiogram in November 2015 shows preserved ejection fraction. Coumadin discontinued secondary to bleeding. Continue aspirin and prophylactic heparin dose. 4. History of non-Hodgkin's lymphoma: Status post brain biopsy on December 13 by neurosurgery. Pathology consistent with acute infarct without evidence of lymphoma. Oncology signed off. 5. Diabetes mellitus: Hemoglobin A1c is 7. Continue Levemir. Monitor Accu-Cheks and cover with sliding scale insulin. 6. Decubitus ulcer stage IV: Continue wound care, twice-daily dressing changes.. Wound care recommendations. Continue pressure relief measures including turning and positioning. Patient's family has declined a diverting colostomy. Wound culture growing Klebsiella. Antibiotics per infectious disease. Status post wide excision of sacral skin and biopsy of the cavity lining with debridement on 07/22/16. 7. Gastric ulcer, reflux esophagitis: EGD on 07/30/16 showed gastric ulcers. Appreciate GI recommendations. Continue PPI. H&H stable. 8. FEN: Continue Nepro tube feeds. Appreciate dietary recommendations. Continue free water flushes. Supplement potassium. 9. Poor prognosis. 10. DVT prophylaxis: SCDs. Problem Qualifiers (1) DM (diabetes mellitus): Qualified Code: E11.9 - Type 2 diabetes mellitus without complications Obed Henry MD Aug 16, 2016 14:47
[2016-08-16] MEDS: PARoxetine HCL SUSP 20 MG/10 ML UDC PEG SCH (18:08)
[2016-08-16] MEDS: INSULIN DETEMIR 100 UNITS/ML VIAL SQ SCH (21:00)
[2016-08-16] MEDS: DOCUSATE SODIUM 100 MG/10 ML UDC PO PRN (21:09)
[2016-08-17] VITALS (9 sets, daily range): BP systolic 106–130; BP diastolic 66–82; PULSE 77–91; RESP 20–22; TEMP 96.7–99.6; O2SAT 96–100
[2016-08-17] MEDS: FREE WATER TUBE SCH ×6 (04:00→23:48)
[2016-08-17] MEDS: HEPARIN SODIUM - SQ 10,000 UNITS/ML VIAL SQ SCH ×3 (05:17→22:01)
[2016-08-17] MEDS: ACETAMINOPHEN/HYDROcodone 325 MG/5 MG TAB PEG SCH ×4 (05:20→23:48)
[2016-08-17] MEDS: ACETIC ACID 0.25% SOLN 1000 ML IRR BTL IRRIGATION SCH ×3 (05:21→22:01)
[2016-08-17] MEDS: INSULIN ASPART SUPPLEMENTAL SCALE SQ SCH (06:01)
[2016-08-17] MEDS: NYSTATIN 100,000 U/GM PWD 15 GM BTL TOPICAL SCH ×2 (08:36→20:29)
[2016-08-17] MEDS: BACITRACIN TOP OINT 15 GM TUBE TOP SCH ×2 (08:36→20:34)
[2016-08-17] MEDS: LACTOBACILLUS ACIDOPHILUS TAB PEG SCH ×3 (08:36→18:30)
[2016-08-17] MEDS: levETIRAcetam 500 MG/5 ML UDC TUBE SCH ×2 (08:36→20:16)
[2016-08-17] MEDS: LINEZOLID 600 MG TAB PO SCH ×2 (08:36→20:38)
[2016-08-17] MEDS: ARTIFICIAL TEARS OPTH OINT 3.5 APPLIC/3.5 GM TUBO EACH EYE SCH ×2 (08:36→20:28)
[2016-08-17] MEDS: SODIUM CHLORIDE 0.65% NASAL SPRAY 45 ML BTL NASAL SCH ×2 (08:36→20:28)
[2016-08-17] MEDS: METOPROLOL TARTRATE 50 MG TAB PO SCH ×3 (08:36→23:00)
[2016-08-17] MEDS: DILTIAZEM HCL 30 MG TAB PEG SCH ×5 (08:36→23:00)
[2016-08-17] MEDS: POTASSIUM CHLORIDE 25 MEQ EFFERVESCENT TAB TUBE SCH (08:36)
[2016-08-17] MEDS: ASPIRIN 325 MG TAB TUBE SCH (08:36)
--- NOTE | 2016-08-17 10:12 | HHI.PR ---
Subjective Remarks Follow-up respiratory failure, encephalopathy. Patient's nurse reports that he has not had a bowel movement in 2 days. No other events reported. Objective Vitals Vital Signs Date Time Temp Pulse Resp B/P Pulse Ox O2 Delivery O2 Flow Rate FiO2 08/17/16 08:03 97.8 89 20 130/80 97 08/17/16 04:00 97.1 84 22 110/69 100 08/17/16 00:00 97.0 77 22 109/66 99 08/16/16 20:00 95.8 80 22 111/72 98 08/16/16 19:57 98 T-piece 28 08/16/16 19:57 98 T-piece 28 08/16/16 18:51 84 08/16/16 16:40 96.4 82 20 121/78 100 08/16/16 14:34 99 T-Piece 28 08/16/16 13:06 98.1 79 20 111/72 99 08/16/16 11:36 99 T-piece 6.00 08/16/16 10:20 84 I/O 08/16/16 08/16/16 08/16/16 08/17/16 08/17/16 08/17/16 07:00 15:00 23:00 07:00 15:00 23:00 Output Total 750 ml 700 ml 400 ml 200 ml Balance -750 ml -700 ml -400 ml -200 ml Output Urine Total 750 ml 700 ml 400 ml 200 ml # Bowel Movements 0 0 0 Result Diagram: 08/15/16 0713 08/15/1613 Imaging Last Impressions Tube Change 08/14/16 0000 Signed Impressions: Service Date/Time: Sunday, August 14, 2016 15:11 - CONCLUSION: Uncomplicated gastrojejunostomy tube exchange as above. Moises Ramírez MD Chest X-Ray 08/01/16 0000 Signed Impressions: Service Date/Time: July 13:51 - CONCLUSION: 1. Stable mild airspace opacity at the left lung base representing either atelectasis or airspace consolidation. 2. New subsegmental atelectasis at the right lung base. Glen Gordon MD Abdomen/Pelvis CT 04/12/16 0000 Signed Impressions: Service Date/Time: Tuesday, April 12, 2016 20:52 - CONCLUSION: 1. 6.4 cm necrotic mass or abscess in the soft tissues posteriorly just below the sacrum associated with some bony destructive change of the lower most sacrum and coccyx with inflammatory changes extending into the ischiorectal fossa and into the presacral retroperitoneum predominantly on the left side. There is associated fairly marked mural thickening of the anal verge and rectum. 2. There is gastrostomy and Arevalo catheter present. Stable abdominal aortic aneurysm. Durga Dotson MD Head Magnetic Resonance Angiography 03/05/16 0000 Signed Impressions: Service Date/Time: Saturday, March 05, 2016 09:26 - CONCLUSION: Persistent high-grade subtotal occlusive stenotic lesions in the distal right vertebral artery and proximal basilar artery with significant improvement in flow and recanalization following initial presentation of thrombosis. Stable interstitial circulation without significant stenosis. 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 There is decreasing restricted diffusion and increasing loss of volume characteristic of a subacute to chronic infarct. No evidence of acute infarct, acute hemorrhage mass or edema. Ernesto Kulkarni MD Head CT 01/16/16 0000 Signed Impressions: Service Date/Time: Saturday, January 16, 2016 10:51 - CONCLUSION: No extensive low density in the brainstem colin more prominent in the right the left extending into the right middle cerebellar peduncle consistent with brainstem infarct nonhemorrhagic acute Wellington West MD Abdomen X-Ray 01/14/16 0000 Signed Impressions: Service Date/Time: Thursday, January 14, 2016 10:19 - CONCLUSION: Moderate stool; otherwise, negative. 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 No evidence of carotid stenosis. Glen Zamora MD Head/Brain Mag Res Venography 12/22/15 0000 Signed Impressions: Service Date/Time: Tuesday, December 22, 2015 09:22 - CONCLUSION: Normal MRV. Jonel Jones Jr., MD Objective Remarks General: No acute distress. Trach. Heart: Regular rate and rhythm. No murmur. Lungs: Clear to auscultation bilaterally. No wheezes, rales, or rhonchi. Breathing is nonlabored. Abdomen: Soft, nontender, nondistended. PEG tube in place. Extremities: No lower extremity edema. SCDs. Psych: Alert. Nonverbal. Does not track or follow commands. Procedures 01/02/16 PEG placement 01/02/16 tracheostomy 07/22/2016 Wide excision of sacral skin wound, biopsy of the cavity lining and debridement. PEG tube replacement 07/29/16 Urinary Catheter: Yes Assessment to: Continue Date of Insertion: Aug 03, 2016 Vascular Central Line Catheter: No A/P Problem List: (1) CVA (cerebral vascular accident) ICD Code: I63.9 Status: Acute (2) A-fib ICD Code: I48.91 Status: Chronic (3) DM (diabetes mellitus) ICD Code: E11.9 Status: Chronic Assessment and Plan Reviewed/updated 08/17/16. Constipation. Add Miralax. 1. 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 Patient is nonverbal. Continue Keppra for seizure prophylaxis. PT/OT signed off as patient is unable to participate. 2. Chronic respiratory failure: Secondary to CVA. Status post tracheostomy. Continue pulmonary toilet and bronchodilators as needed. Continue trach care, suctioning. Levsin as needed. 3. Atrial fibrillation: Continue rate control with Cardizem and metoprolol. Echocardiogram in November 2015 shows preserved ejection fraction. Coumadin discontinued secondary to bleeding. Continue aspirin and prophylactic heparin dose. 4. History of non-Hodgkin's lymphoma: Status post brain biopsy on December 13 by neurosurgery. Pathology consistent with acute infarct without evidence of lymphoma. Oncology signed off. 5. Diabetes mellitus: Hemoglobin A1c is 7. Continue Levemir. Monitor Accu-Cheks and cover with sliding scale insulin. 6. Decubitus ulcer stage IV: Continue wound care, twice-daily dressing changes.. Wound care recommendations. Continue pressure relief measures including turning and positioning. Patient's family has declined a diverting colostomy. Wound culture growing Klebsiella. Antibiotics per infectious disease. Status post wide excision of sacral skin and biopsy of the cavity lining with debridement on 07/22/16. 7. Gastric ulcer, reflux esophagitis: EGD on 1/10/17 showed gastric ulcers. Appreciate GI recommendations. Continue PPI. H&H stable. 8. FEN: Continue Nepro tube feeds. Appreciate dietary recommendations. Continue free water flushes. Supplement potassium. 9. Poor prognosis. 10. DVT prophylaxis: SCDs. Problem Qualifiers (1) DM (diabetes mellitus): Qualified Code: E11.9 - Type 2 diabetes mellitus without complications Obed Henry MD Aug 17, 2016 10:12
[2016-08-17] MEDS: PANTOPRAZOLE SODIUM 40 MG VIAL IV PUSH SCH ×2 (10:15→23:47)
[2016-08-17] MEDS: PARoxetine HCL SUSP 20 MG/10 ML UDC PEG SCH (18:30)
[2016-08-17] MEDS: INSULIN DETEMIR 100 UNITS/ML VIAL SQ SCH (20:27)
[2016-08-18] VITALS (11 sets, daily range): BP systolic 93–122; BP diastolic 62–77; PULSE 76–92; RESP 20; TEMP 95–97.7; O2SAT 97–99
[2016-08-18] MEDS: FREE WATER TUBE SCH ×5 (04:00→20:00)
[2016-08-18] MEDS: HEPARIN SODIUM - SQ 10,000 UNITS/ML VIAL SQ SCH ×3 (05:53→20:59)
[2016-08-18] MEDS: ACETAMINOPHEN/HYDROcodone 325 MG/5 MG TAB PEG SCH ×3 (05:53→18:11)
[2016-08-18] MEDS: ACETIC ACID 0.25% SOLN 1000 ML IRR BTL IRRIGATION SCH ×3 (05:54→22:00)
[2016-08-18] MEDS: INSULIN ASPART SUPPLEMENTAL SCALE SQ SCH (07:00)
[2016-08-18] MEDS: ARTIFICIAL TEARS OPTH OINT 3.5 APPLIC/3.5 GM TUBO EACH EYE SCH ×2 (07:44→21:08)
[2016-08-18] MEDS: SODIUM CHLORIDE 0.65% NASAL SPRAY 45 ML BTL NASAL SCH ×2 (07:44→21:00)
[2016-08-18] MEDS: LACTOBACILLUS ACIDOPHILUS TAB PEG SCH ×3 (07:45→18:11)
[2016-08-18] MEDS: LINEZOLID 600 MG TAB PO SCH ×2 (07:45→20:59)
[2016-08-18] MEDS: METOPROLOL TARTRATE 50 MG TAB PO SCH ×2 (07:45→20:59)
[2016-08-18] MEDS: levETIRAcetam 500 MG/5 ML UDC TUBE SCH ×2 (07:45→20:58)
[2016-08-18] MEDS: POTASSIUM CHLORIDE 25 MEQ EFFERVESCENT TAB TUBE SCH (07:45)
[2016-08-18] MEDS: DILTIAZEM HCL 30 MG TAB PEG SCH ×5 (07:45→20:59)
[2016-08-18] MEDS: ASPIRIN 325 MG TAB TUBE SCH (07:45)
[2016-08-18] MEDS: BACITRACIN TOP OINT 15 GM TUBE TOP SCH ×2 (07:46→21:10)
[2016-08-18] MEDS: NYSTATIN 100,000 U/GM PWD 15 GM BTL TOPICAL SCH ×2 (07:46→21:10)
[2016-08-18] MEDS: PANTOPRAZOLE SODIUM 40 MG VIAL IV PUSH SCH ×2 (10:15→21:59)
--- NOTE | 2016-08-18 11:27 | HHI.PR ---
Subjective Remarks Follow-up encephalopathy, respiratory failure. No events reported overnight. Patient had a bowel movement yesterday evening. Objective Vitals Vital Signs Date Time Temp Pulse Resp B/P Pulse Ox O2 Delivery O2 Flow Rate FiO2 08/18/16 09:05 98 T-piece 08/18/16 09:05 98 T-piece 08/18/16 08:21 96.7 80 20 114/70 99 08/18/16 07:21 98 Blow By 6.00 28 T-Piece 08/18/16 06:34 97 T-piece 6.00 28 08/18/16 04:00 97.7 86 20 122/77 98 08/18/16 00:00 97.3 76 20 116/73 98 08/17/16 22:00 97.3 91 20 130/82 96 08/17/16 20:00 99.6 90 20 106/74 100 08/17/16 20:00 89 08/17/16 19:45 100 T-Piece 6.00 08/17/16 16:00 96.7 80 20 113/70 98 08/17/16 12:00 97.9 85 20 120/77 99 I/O 08/17/16 08/17/16 08/17/16 08/18/16 08/18/16 08/18/16 07:00 15:00 23:00 07:00 15:00 23:00 Output Total 200 ml 250 ml 500 ml 900 ml Balance -200 ml -250 ml -500 ml -900 ml Output Urine Total 200 ml 250 ml 500 ml 900 ml # Bowel Movements 0 0 1 Result Diagram: 08/15/1671208/15/16712 Imaging Last Impressions Tube Change 08/14/16 0000 Signed Impressions: Service Date/Time: Sunday, August 14, 2016 15:11 - CONCLUSION: Uncomplicated gastrojejunostomy tube exchange as above. Moises Ramírez MD Chest X-Ray 08/01/16 0000 Signed Impressions: Service Date/Time: July 13:51 - CONCLUSION: 1. Stable mild airspace opacity at the left lung base representing either atelectasis or airspace consolidation. 2. New subsegmental atelectasis at the right lung base. Glen Gordon MD Abdomen/Pelvis CT 04/12/16 0000 Signed Impressions: Service Date/Time: Tuesday, April 12, 2016 20:52 - CONCLUSION: 1. 6.4 cm necrotic mass or abscess in the soft tissues posteriorly just below the sacrum associated with some bony destructive change of the lower most sacrum and coccyx with inflammatory changes extending into the ischiorectal fossa and into the presacral retroperitoneum predominantly on the left side. There is associated fairly marked mural thickening of the anal verge and rectum. 2. There is gastrostomy and Arevalo catheter present. Stable abdominal aortic aneurysm. Durga Dotson MD Head Magnetic Resonance Angiography 03/05/16 0000 Signed Impressions: Service Date/Time: Saturday, March 05, 2016 09:26 - CONCLUSION: Persistent high-grade subtotal occlusive stenotic lesions in the distal right vertebral artery and proximal basilar artery with significant improvement in flow and recanalization following initial presentation of thrombosis. Stable interstitial circulation without significant stenosis. 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 There is decreasing restricted diffusion and increasing loss of volume characteristic of a subacute to chronic infarct. No evidence of acute infarct, acute hemorrhage mass or edema. Ernesto Kulkarni MD Head CT 01/16/16 0000 Signed Impressions: Service Date/Time: Saturday, January 16, 2016 10:51 - CONCLUSION: No extensive low density in the brainstem colin more prominent in the right the left extending into the right middle cerebellar peduncle consistent with brainstem infarct nonhemorrhagic acute Wellington West MD Abdomen X-Ray 01/14/16 0000 Signed Impressions: Service Date/Time: Thursday, January 14, 2016 10:19 - CONCLUSION: Moderate stool; otherwise, negative. 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 No evidence of carotid stenosis. Glen Zamora MD Head/Brain Mag Res Venography 12/22/15 0000 Signed Impressions: Service Date/Time: Tuesday, December 22, 2015 09:22 - CONCLUSION: Normal MRV. Jonel Jones Jr., MD Objective Remarks General: No acute distress. Trach. Heart: Regular rate and rhythm. No murmur. Lungs: Clear to auscultation bilaterally. No wheezes, rales, or rhonchi. Breathing is nonlabored. Abdomen: Soft, nontender, nondistended. PEG tube in place. Extremities: No lower extremity edema. SCDs. Psych: Alert. Nonverbal. Does not track or follow commands. Procedures 01/02/16 PEG placement 01/02/16 tracheostomy 07/22/2016 Wide excision of sacral skin wound, biopsy of the cavity lining and debridement. PEG tube replacement 07/29/16 Urinary Catheter: Yes Assessment to: Continue Arevalo insert reason: Obstruction/Retention Date of Insertion: Aug 03, 2016 Vascular Central Line Catheter: No A/P Problem List: (1) CVA (cerebral vascular accident) ICD Code: I63.9 Status: Acute (2) A-fib ICD Code: I48.91 Status: Chronic (3) DM (diabetes mellitus) ICD Code: E11.9 Status: Chronic Assessment and Plan Reviewed/updated 08/18/16. No change. 1. 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 Patient is nonverbal. Continue Keppra for seizure prophylaxis. PT/OT signed off as patient is unable to participate. 2. Chronic respiratory failure: Secondary to CVA. Status post tracheostomy. Continue pulmonary toilet and bronchodilators as needed. Continue trach care, suctioning. Levsin as needed. 3. Atrial fibrillation: Continue rate control with Cardizem and metoprolol. Echocardiogram in November 2015 shows preserved ejection fraction. Coumadin discontinued secondary to bleeding. Continue aspirin and prophylactic heparin dose. 4. History of non-Hodgkin's lymphoma: Status post brain biopsy on December 13 by neurosurgery. Pathology consistent with acute infarct without evidence of lymphoma. Oncology signed off. 5. Diabetes mellitus: Hemoglobin A1c is 7. Continue Levemir. Monitor Accu-Cheks and cover with sliding scale insulin. 6. Decubitus ulcer stage IV: Continue wound care, twice-daily dressing changes.. Wound care recommendations. Continue pressure relief measures including turning and positioning. Patient's family has declined a diverting colostomy. Wound culture growing Klebsiella. Antibiotics per infectious disease. Status post wide excision of sacral skin and biopsy of the cavity lining with debridement on 07/22/16. 7. Gastric ulcer, reflux esophagitis: EGD on 07/30/16 showed gastric ulcers. Appreciate GI recommendations. Continue PPI. H&H stable. 8. FEN: Continue Nepro tube feeds. Appreciate dietary recommendations. Continue free water flushes. Supplement potassium. 9. Poor prognosis. 10. DVT prophylaxis: SCDs. Problem Qualifiers (1) DM (diabetes mellitus): Qualified Code: E11.9 - Type 2 diabetes mellitus without complications Obed Henry MD Aug 18, 2016 11:27
[2016-08-18] MEDS: PARoxetine HCL SUSP 20 MG/10 ML UDC PEG SCH (18:11)
[2016-08-18] MEDS: INSULIN DETEMIR 100 UNITS/ML VIAL SQ SCH (21:01)
[2016-08-19] VITALS (10 sets, daily range): BP systolic 109–121; BP diastolic 66–75; PULSE 83–88; RESP 19–20; TEMP 96.1–98; O2SAT 95–99
[2016-08-19] MEDS: ACETAMINOPHEN/HYDROcodone 325 MG/5 MG TAB PEG SCH ×4 (00:24→18:40)
[2016-08-19] MEDS: FREE WATER TUBE SCH ×6 (04:00→20:00)
[2016-08-19] MEDS: HEPARIN SODIUM - SQ 10,000 UNITS/ML VIAL SQ SCH ×3 (06:45→22:31)
[2016-08-19] MEDS: INSULIN ASPART SUPPLEMENTAL SCALE SQ SCH (06:45)
[2016-08-19] MEDS: ACETIC ACID 0.25% SOLN 1000 ML IRR BTL IRRIGATION SCH ×3 (06:46→22:31)
[2016-08-19] MEDS: LACTOBACILLUS ACIDOPHILUS TAB PEG SCH ×3 (07:52→18:40)
[2016-08-19] MEDS: levETIRAcetam 500 MG/5 ML UDC TUBE SCH ×2 (07:52→20:59)
[2016-08-19] MEDS: PANTOPRAZOLE SODIUM 40 MG VIAL IV PUSH SCH ×2 (07:52→22:30)
[2016-08-19] MEDS: POTASSIUM CHLORIDE 25 MEQ EFFERVESCENT TAB TUBE SCH (07:52)
[2016-08-19] MEDS: ASPIRIN 325 MG TAB TUBE SCH (07:52)
[2016-08-19] MEDS: DILTIAZEM HCL 30 MG TAB PEG SCH ×4 (07:53→22:32)
[2016-08-19] MEDS: METOPROLOL TARTRATE 50 MG TAB PO SCH ×2 (07:53→22:32)
[2016-08-19] MEDS: LINEZOLID 600 MG TAB PO SCH ×2 (07:53→20:58)
[2016-08-19] MEDS: NYSTATIN 100,000 U/GM PWD 15 GM BTL TOPICAL SCH ×2 (07:54→21:04)
[2016-08-19] MEDS: ARTIFICIAL TEARS OPTH OINT 3.5 APPLIC/3.5 GM TUBO EACH EYE SCH ×2 (07:55→21:05)
[2016-08-19] MEDS: SODIUM CHLORIDE 0.65% NASAL SPRAY 45 ML BTL NASAL SCH ×2 (07:55→21:00)
[2016-08-19] MEDS: BACITRACIN TOP OINT 15 GM TUBE TOP SCH ×2 (07:55→21:04)
--- NOTE | 2016-08-19 09:58 | HHI.PR ---
Subjective Remarks Follow up encephalopathy, respiratory failure. No changes/events reported. Objective Vitals Vital Signs Date Time Temp Pulse Resp B/P Pulse Ox O2 Delivery O2 Flow Rate FiO2 08/19/16 08:40 97.5 83 20 114/73 95 08/19/16 07:53 16 08/19/16 04:00 98.0 86 20 115/71 97 08/19/16 00:15 99 T-piece 6.00 28 08/19/16 00:00 97.9 84 20 116/72 97 08/18/16 20:00 97.7 91 20 122/70 98 08/18/16 19:30 T-Piece 6.00 08/18/16 19:30 92 08/18/16 16:35 96.3 78 20 109/73 99 08/18/16 12:44 76 93/62 08/18/16 12:12 95.0 85 20 118/75 97 I/O 08/18/16 08/18/16 08/18/16 08/19/16 08/19/16 08/19/16 07:00 15:00 23:00 07:00 15:00 23:00 Output Total 900 ml 1500 ml 800 ml Balance -900 ml -1500 ml -800 ml Output Urine Total 900 ml 1500 ml 800 ml Result Diagram: 08/15/1613 08/15/16712 Imaging Last Impressions Tube Change 08/14/16 0000 Signed Impressions: Service Date/Time: Sunday, August 14, 2016 15:11 - CONCLUSION: Uncomplicated gastrojejunostomy tube exchange as above. Moises Ramírez MD Chest X-Ray 08/01/16 0000 Signed Impressions: Service Date/Time: July 13:51 - CONCLUSION: 1. Stable mild airspace opacity at the left lung base representing either atelectasis or airspace consolidation. 2. New subsegmental atelectasis at the right lung base. Glen Gordon MD Abdomen/Pelvis CT 04/12/16 0000 Signed Impressions: Service Date/Time: Tuesday, April 12, 2016 20:52 - CONCLUSION: 1. 6.4 cm necrotic mass or abscess in the soft tissues posteriorly just below the sacrum associated with some bony destructive change of the lower most sacrum and coccyx with inflammatory changes extending into the ischiorectal fossa and into the presacral retroperitoneum predominantly on the left side. There is associated fairly marked mural thickening of the anal verge and rectum. 2. There is gastrostomy and Arevalo catheter present. Stable abdominal aortic aneurysm. Durga Dotson MD Head Magnetic Resonance Angiography 03/05/16 0000 Signed Impressions: Service Date/Time: Saturday, March 05, 2016 09:26 - CONCLUSION: Persistent high-grade subtotal occlusive stenotic lesions in the distal right vertebral artery and proximal basilar artery with significant improvement in flow and recanalization following initial presentation of thrombosis. Stable interstitial circulation without significant stenosis. 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 There is decreasing restricted diffusion and increasing loss of volume characteristic of a subacute to chronic infarct. No evidence of acute infarct, acute hemorrhage mass or edema. Ernesto Kulkarni MD Head CT 01/16/16 0000 Signed Impressions: Service Date/Time: Saturday, January 16, 2016 10:51 - CONCLUSION: No extensive low density in the brainstem colin more prominent in the right the left extending into the right middle cerebellar peduncle consistent with brainstem infarct nonhemorrhagic acute Wellington West MD Abdomen X-Ray 01/14/16 0000 Signed Impressions: Service Date/Time: Thursday, January 14, 2016 10:19 - CONCLUSION: Moderate stool; otherwise, negative. 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 No evidence of carotid stenosis. Glen Zamora MD Head/Brain Mag Res Venography 12/22/15 0000 Signed Impressions: Service Date/Time: Tuesday, December 22, 2015 09:22 - CONCLUSION: Normal MRV. Jonel Jones Jr., MD Objective Remarks General: No acute distress. Trach. Heart: Regular rate and rhythm. No murmur. Lungs: Clear to auscultation bilaterally. No wheezes, rales, or rhonchi. Breathing is nonlabored. Abdomen: Soft, nontender, nondistended. PEG tube in place. Extremities: No lower extremity edema. SCDs. Psych: Alert. Nonverbal. Does not track or follow commands. Procedures 01/02/16 PEG placement 01/02/16 tracheostomy 07/22/2016 Wide excision of sacral skin wound, biopsy of the cavity lining and debridement. PEG tube replacement 07/29/16 Urinary Catheter: Yes Assessment to: Continue Arevalo insert reason: Obstruction/Retention Date of Insertion: Aug 03, 2016 Vascular Central Line Catheter: No A/P Problem List: (1) CVA (cerebral vascular accident) ICD Code: I63.9 Status: Acute (2) A-fib ICD Code: I48.91 Status: Chronic (3) DM (diabetes mellitus) ICD Code: E11.9 Status: Chronic Assessment and Plan Reviewed/updated 08/19/16. No change. 1. 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 Patient is nonverbal. Continue Keppra for seizure prophylaxis. PT/OT signed off as patient is unable to participate. 2. Chronic respiratory failure: Secondary to CVA. Status post tracheostomy. Continue pulmonary toilet and bronchodilators as needed. Continue trach care, suctioning. Levsin as needed. 3. Atrial fibrillation: Continue rate control with Cardizem and metoprolol. Echocardiogram in November 2015 shows preserved ejection fraction. Coumadin discontinued secondary to bleeding. Continue aspirin and prophylactic heparin dose. 4. History of non-Hodgkin's lymphoma: Status post brain biopsy on December 13 by neurosurgery. Pathology consistent with acute infarct without evidence of lymphoma. Oncology signed off. 5. Diabetes mellitus: Hemoglobin A1c is 7. Continue Levemir. Monitor Accu-Cheks and cover with sliding scale insulin. 6. Decubitus ulcer stage IV: Continue wound care, twice-daily dressing changes.. Wound care recommendations. Continue pressure relief measures including turning and positioning. Patient's family has declined a diverting colostomy. Wound culture growing Klebsiella. Antibiotics per infectious disease. Status post wide excision of sacral skin and biopsy of the cavity lining with debridement on 07/22/16. 7. Gastric ulcer, reflux esophagitis: EGD on 07/30/16 showed gastric ulcers. Appreciate GI recommendations. Continue PPI. H&H stable. 8. FEN: Continue Nepro tube feeds. Appreciate dietary recommendations. Continue free water flushes. Supplement potassium. 9. Poor prognosis. 10. DVT prophylaxis: SCDs. Problem Qualifiers (1) DM (diabetes mellitus): Qualified Code: E11.9 - Type 2 diabetes mellitus without complications Obed Henry MD Aug 19, 2016 09:58
[2016-08-19] MEDS: PARoxetine HCL SUSP 20 MG/10 ML UDC PEG SCH (18:40)
[2016-08-19] MEDS: INSULIN DETEMIR 100 UNITS/ML VIAL SQ SCH (20:59)
[2016-08-20] VITALS (9 sets, daily range): BP systolic 111–126; BP diastolic 65–74; PULSE 80–95; RESP 18–20; TEMP 95.5–97.7; O2SAT 94–100
[2016-08-20] MEDS: ACETAMINOPHEN/HYDROcodone 325 MG/5 MG TAB PEG SCH ×4 (01:00→17:21)
[2016-08-20] MEDS: FREE WATER TUBE SCH ×6 (03:47→20:00)
[2016-08-20] MEDS: INSULIN ASPART SUPPLEMENTAL SCALE SQ SCH (07:00)
[2016-08-20] MEDS: levETIRAcetam 500 MG/5 ML UDC TUBE SCH ×2 (08:58→21:56)
[2016-08-20] MEDS: DILTIAZEM HCL 30 MG TAB PEG SCH ×4 (08:58→21:00)
[2016-08-20] MEDS: LINEZOLID 600 MG TAB PO SCH ×2 (08:58→21:56)
[2016-08-20] MEDS: LACTOBACILLUS ACIDOPHILUS TAB PEG SCH ×3 (08:58→17:21)
[2016-08-20] MEDS: POTASSIUM CHLORIDE 25 MEQ EFFERVESCENT TAB TUBE SCH (08:59)
[2016-08-20] MEDS: METOPROLOL TARTRATE 50 MG TAB PO SCH ×2 (08:59→21:56)
[2016-08-20] MEDS: ASPIRIN 325 MG TAB TUBE SCH (08:59)
[2016-08-20] MEDS: SODIUM CHLORIDE 0.65% NASAL SPRAY 45 ML BTL NASAL SCH ×2 (09:00→21:00)
[2016-08-20] MEDS: NYSTATIN 100,000 U/GM PWD 15 GM BTL TOPICAL SCH ×2 (09:01→21:00)
[2016-08-20] MEDS: ARTIFICIAL TEARS OPTH OINT 3.5 APPLIC/3.5 GM TUBO EACH EYE SCH ×2 (09:01→21:00)
[2016-08-20] MEDS: BACITRACIN TOP OINT 15 GM TUBE TOP SCH ×2 (09:19→21:00)
[2016-08-20] MEDS: PANTOPRAZOLE SODIUM 40 MG VIAL IV PUSH SCH (11:49)
[2016-08-20] MEDS: HEPARIN SODIUM - SQ 10,000 UNITS/ML VIAL SQ SCH ×2 (13:10→14:00)
[2016-08-20] MEDS: ACETIC ACID 0.25% SOLN 1000 ML IRR BTL IRRIGATION SCH ×3 (13:11→21:57)
[2016-08-20] MEDS: PARoxetine HCL SUSP 20 MG/10 ML UDC PEG SCH (18:51)
[2016-08-20] MEDS: INSULIN DETEMIR 100 UNITS/ML VIAL SQ SCH (21:56)
--- NOTE | 2016-08-20 23:47 | HHI.PR ---
Subjective Remarks patient seen today around noon. No acute changes. Discussed with family at bedside. Objective Vital Signs Date Time Temp Pulse Resp B/P Pulse Ox O2 Delivery O2 Flow Rate FiO2 08/20/16 20:21 96.1 86 18 111/74 99 08/20/16 17:19 97.5 87 20 117/73 99 08/20/16 13:00 18 08/20/16 12:12 96.8 87 20 114/70 94 08/20/16 09:06 95 08/20/16 09:01 100 T-piece 5.00 28 08/20/16 09:01 100 T-piece 5.00 28 08/20/16 08:34 95.5 93 20 126/73 95 08/20/16 08:00 95 T-Piece 28 08/20/16 06:30 97.7 94 19 115/65 96 08/20/16 00:45 97.0 80 18 118/73 98 I/O 08/19/16 08/19/16 08/19/16 08/20/16 08/20/16 08/20/16 07:00 15:00 23:00 07:00 15:00 23:00 Intake Total 600 ml 0 ml Output Total 800 ml 700 ml 800 ml 1200 ml 500 ml 600 ml Balance -800 ml -700 ml -200 ml -1200 ml -500 ml -600 ml Intake Oral 0 ml 0 ml Other 600 ml Output Urine Total 800 ml 700 ml 800 ml 1200 ml 500 ml 600 ml # Bowel Movements 1 2 0 Procedures 01/02/16 PEG placement 01/02/16 tracheostomy 07/22/2016 Wide excision of sacral skin wound, biopsy of the cavity lining and debridement. PEG tube replacement 07/29/16 Objective Remarks GENERAL: lying in bed. eyes open, making eye contact. does not appear to be able to communicate. Appears comfortable. SKIN: Warm and dry. HEAD: Normocephalic. EYES: No scleral icterus. No injection or drainage. NECK: Supple, trachea midline. No JVD . CARDIOVASCULAR: Regular rate and rhythm without murmurs, gallops, or rubs. RESPIRATORY: Breath sounds equal bilaterally. No accessory muscle use. GASTROINTESTINAL: Abdomen soft, non-tender, nondistended. PEG tube in place. No surrounding erythema. MUSCULOSKELETAL: No cyanosis, or edema. BACK: Nontender without obvious deformity. No CVA tenderness. A/P Assessment and Plan 08/20/16. Patient seen and examined. no acute changes. Continue day/night reorientation to prevent daytime somnolence. 60-year-old male with past medical history of paroxysmal atrial fibrillation, hypertension, stage III a non-Hodgkin's lymphoma status post a chemotherapy last year. He came to the hospital with altered mental status, facial droop. 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 Non verbal. Continue Keppra. Palliative care following. Chronic respiratory failure: Secondary to CVA, Status post tracheostomy. Continue pulmonary toilet and neb treatments as needed. Continue bronchodilators Xopenex, trach care, levsin prn, suctioning. A-fib: Continue rate control with Cardizem and metoprolol. Echocardiogram completed in November shows preserved EF. Coumadin discontinued secondary to bleeding. Continue with ASA and prophylactic heparin dose. If persistently without any bleeding, could consider restarting Coumadin. CBC- stable 06/19 - Heart rate stable. Continue monitor. HTN - stable History of Non-Hodgkin lymphoma: s/p brain biopsy on December 13, by Neurosurgery, Dr. Marin. Pathology consistent with acute infarct without evidence of lymphoma. Oncology signed off with no active oncology issues. DM (diabetes mellitus): HgbA1c 7.0. Continue Levemir 35u daily. Continue sliding scale coverage. Monitor accuchecks and adjust the regimen as needed. - Blood sugar stable. Continue monitor Decubitus ulcer stage IV: Continue Rocephin indefinitely (on lactinex) per ID until OM is ruled out with bone biopsy and watch for further bleeding (off warfarin due to bleeding which appears to have resolved). Continue dressing changes twice daily per wound care recommendations. Continue pressure relief measures, mattress, Turning and positioning. Patient's family declined a diverting colostomy. - Continue wound care. -recent wide excision and debridement 07/22/16. -continue linezolid as per infectious disease. GI/Nutrition: Continue Nepro at 55 cc/hr per dietitian recommendations. Free water flushes. Potassium supplement. DVT px - SCDs. Discharge Planning appreciate case management assistance. Ramiro Rucker MD Aug 20, 2016 23:47
[2016-08-21] VITALS (11 sets, daily range): BP systolic 106–139; BP diastolic 70–80; PULSE 79–103; RESP 18–30; TEMP 95–99.7; O2SAT 93–100
[2016-08-21] MEDS: ACETAMINOPHEN/HYDROcodone 325 MG/5 MG TAB PEG SCH ×5 (00:50→18:00)
[2016-08-21] MEDS: HEPARIN SODIUM - SQ 10,000 UNITS/ML VIAL SQ SCH ×4 (00:51→21:44)
[2016-08-21] MEDS: PANTOPRAZOLE SODIUM 40 MG VIAL IV PUSH SCH ×3 (00:51→21:44)
[2016-08-21] MEDS: FREE WATER TUBE SCH ×6 (04:00→20:00)
[2016-08-21] MEDS: ACETIC ACID 0.25% SOLN 1000 ML IRR BTL IRRIGATION SCH ×3 (06:00→22:00)
[2016-08-21] MEDS: INSULIN ASPART SUPPLEMENTAL SCALE SQ SCH (07:00)
[2016-08-21] MEDS: levETIRAcetam 500 MG/5 ML UDC TUBE SCH ×2 (08:36→21:44)
[2016-08-21] MEDS: POTASSIUM CHLORIDE 25 MEQ EFFERVESCENT TAB TUBE SCH (08:37)
[2016-08-21] MEDS: LINEZOLID 600 MG TAB PO SCH ×2 (08:37→21:45)
[2016-08-21] MEDS: LACTOBACILLUS ACIDOPHILUS TAB PEG SCH ×3 (08:37→18:03)
[2016-08-21] MEDS: ASPIRIN 325 MG TAB TUBE SCH (08:37)
[2016-08-21] MEDS: DILTIAZEM HCL 30 MG TAB PEG SCH ×4 (08:37→21:45)
[2016-08-21] MEDS: METOPROLOL TARTRATE 50 MG TAB PO SCH ×2 (08:37→21:00)
[2016-08-21] MEDS: SODIUM CHLORIDE 0.65% NASAL SPRAY 45 ML BTL NASAL SCH ×2 (08:38→21:00)
[2016-08-21] MEDS: ARTIFICIAL TEARS OPTH OINT 3.5 APPLIC/3.5 GM TUBO EACH EYE SCH ×2 (08:38→21:00)
[2016-08-21] MEDS: BACITRACIN TOP OINT 15 GM TUBE TOP SCH ×2 (08:39→21:00)
[2016-08-21] MEDS: NYSTATIN 100,000 U/GM PWD 15 GM BTL TOPICAL SCH ×2 (08:39→21:00)
--- NOTE | 2016-08-21 11:04 | HHI.PR ---
Subjective Remarks Resting in bed, closed eyes, no acute issue Objective Vitals Vital Signs Date Time Temp Pulse Resp B/P Pulse Ox O2 Delivery O2 Flow Rate FiO2 08/21/16 10:02 98 T-Piece 28 08/21/16 08:00 96.4 90 22 128/77 98 08/21/16 07:00 94 08/21/16 05:17 97.7 90 21 129/75 93 08/21/16 02:00 98 T-Piece 28 Humidified 08/21/16 00:24 97.0 80 18 116/72 100 08/20/16 20:21 96.1 86 18 111/74 99 08/20/16 20:00 83 08/20/16 17:19 97.5 87 20 117/73 99 08/20/16 13:00 18 08/20/16 12:12 96.8 87 20 114/70 94 I/O 08/20/16 08/20/16 08/20/16 08/21/16 08/21/16 08/21/16 07:00 15:00 23:00 07:00 15:00 23:00 Intake Total 0 ml 1506 ml Output Total 1200 ml 500 ml 600 ml 600 ml Balance -1200 ml -500 ml -600 ml 906 ml Intake Oral 0 ml Tube Feeding 866 ml Other 640 ml Output Urine Total 1200 ml 500 ml 600 ml 600 ml # Bowel Movements 2 0 1 Objective Remarks Gen.: 60 years old bedridden patient, CARDIOVASCULAR: RRR without murmurs.Peripheral pulses symmetric. Trace edema upper extremities. NECK/CHEST: Tracheostomy midline, . On T piece, RESPIRATORY: coarse air bilaterally. Breath sounds equal bilaterally. GASTROINTESTINAL: Abdomen soft, no apparent tenderness, nondistended. No palpable masses. Bowel sounds normoactive. PEG in place MUSCULOSKELETAL: Extremities without clubbing, cyanosis. Trace edema upper extremities No joint effusion noted. No mottling or clubbing.+ Muscle atrophy to all 4 extremities. NEUROLOGICAL: Eyes open on and off, does not track, doesn't follow commands. No movement of all 4 extremities. Procedures 01/02/16 PEG placement 01/02/16 tracheostomy 07/22/2016 Wide excision of sacral skin wound, biopsy of the cavity lining and debridement. PEG tube replacement 07/29/16 Date of Insertion: Aug 03, 2016 A/P Problem List: (1) CVA (cerebral vascular accident) ICD Code: I63.9 Status: Acute (2) A-fib ICD Code: I48.91 Status: Chronic (3) DM (diabetes mellitus) ICD Code: E11.9 Status: Chronic Assessment and Plan Reviewed/updated 08/21/16. No change. 1. 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 Patient is nonverbal. Continue Keppra for seizure prophylaxis. PT/OT signed off as patient is unable to participate. 2. Chronic respiratory failure: Secondary to CVA. Status post tracheostomy. Continue pulmonary toilet and bronchodilators as needed. Continue trach care, suctioning. Levsin as needed. 3. Atrial fibrillation: Continue rate control with Cardizem and metoprolol. Echocardiogram in November 2015 shows preserved ejection fraction. Coumadin discontinued secondary to bleeding. Continue aspirin and prophylactic heparin dose. 4. History of non-Hodgkin's lymphoma: Status post brain biopsy on December 13 by neurosurgery. Pathology consistent with acute infarct without evidence of lymphoma. Oncology signed off. 5. Diabetes mellitus: Hemoglobin A1c is 7. Continue Levemir. Monitor Accu-Cheks and cover with sliding scale insulin. 6. Decubitus ulcer stage IV: Continue wound care, twice-daily dressing changes.. Wound care recommendations. Continue pressure relief measures including turning and positioning. Patient's family has declined a diverting colostomy. Wound culture growing Klebsiella. Antibiotics per infectious disease. Status post wide excision of sacral skin and biopsy of the cavity lining with debridement on 07/22/16. 7. Gastric ulcer, reflux esophagitis: EGD on 07/30/16 showed gastric ulcers. Appreciate GI recommendations. Continue PPI. H&H stable. 8. FEN: Continue Nepro tube feeds. Appreciate dietary recommendations. Continue free water flushes. Supplement potassium. 9. Poor prognosis. 10. DVT prophylaxis: SCDs. Problem Qualifiers (1) DM (diabetes mellitus): Qualified Code: E11.9 - Type 2 diabetes mellitus without complications Terrence Gonzalez MD Aug 21, 2016 11:04
[2016-08-21] MEDS: PARoxetine HCL SUSP 20 MG/10 ML UDC PEG SCH (18:03)
[2016-08-21] MEDS: INSULIN DETEMIR 100 UNITS/ML VIAL SQ SCH (21:00)
[2016-08-22] VITALS (9 sets, daily range): BP systolic 94–130; BP diastolic 62–76; PULSE 90–112; RESP 19–30; TEMP 96.1–100.2; O2SAT 96–99
[2016-08-22] MEDS: ACETAMINOPHEN/HYDROcodone 325 MG/5 MG TAB PEG SCH ×4 (01:41→17:37)
[2016-08-22] MEDS: FREE WATER TUBE SCH ×6 (04:00→20:00)
[2016-08-22] MEDS: ACETIC ACID 0.25% SOLN 1000 ML IRR BTL IRRIGATION SCH ×3 (06:00→22:00)
[2016-08-22] MEDS: HEPARIN SODIUM - SQ 10,000 UNITS/ML VIAL SQ SCH ×3 (06:28→21:22)
[2016-08-22] MEDS: INSULIN ASPART SUPPLEMENTAL SCALE SQ SCH (07:00)
[2016-08-22] MEDS: SODIUM CHLORIDE 0.65% NASAL SPRAY 45 ML BTL NASAL SCH ×2 (09:00→21:00)
[2016-08-22] MEDS: POTASSIUM CHLORIDE 25 MEQ EFFERVESCENT TAB TUBE SCH (09:09)
[2016-08-22] MEDS: DILTIAZEM HCL 30 MG TAB PEG SCH ×4 (09:10→21:17)
[2016-08-22] MEDS: LINEZOLID 600 MG TAB PO SCH (09:10)
[2016-08-22] MEDS: METOPROLOL TARTRATE 50 MG TAB PO SCH ×2 (09:10→21:00)
[2016-08-22] MEDS: LACTOBACILLUS ACIDOPHILUS TAB PEG SCH ×3 (09:10→17:37)
[2016-08-22] MEDS: levETIRAcetam 500 MG/5 ML UDC TUBE SCH ×2 (09:11→21:17)
[2016-08-22] MEDS: ACETAMINOPHEN 650 MG/20.3 ML UDC TUBE PRN (09:11)
[2016-08-22] MEDS: ASPIRIN 325 MG TAB TUBE SCH (09:11)
[2016-08-22] MEDS: NYSTATIN 100,000 U/GM PWD 15 GM BTL TOPICAL SCH ×2 (09:13→21:00)
[2016-08-22] MEDS: ARTIFICIAL TEARS OPTH OINT 3.5 APPLIC/3.5 GM TUBO EACH EYE SCH ×2 (09:13→21:00)
[2016-08-22] MEDS: BACITRACIN TOP OINT 15 GM TUBE TOP SCH ×2 (09:14→21:00)
[2016-08-22] MEDS: PANTOPRAZOLE SODIUM 40 MG VIAL IV PUSH SCH ×2 (09:15→22:15)
--- NOTE | 2016-08-22 14:29 | HHI.PR ---
Subjective Remarks Laying in bed with closed eyes Discussed with the mother G-tube clocked up again, IR consulted to evaluate Objective Vitals Vital Signs Date Time Temp Pulse Resp B/P Pulse Ox O2 Delivery O2 Flow Rate FiO2 08/22/16 12:00 96.1 90 21 94/62 96 08/22/16 08:00 100.2 112 24 113/69 96 08/22/16 07:45 20 08/22/16 04:00 96.8 108 30 119/76 99 08/22/16 00:00 98.7 99 28 130/70 99 08/21/16 20:00 99.7 103 30 139/80 99 08/21/16 18:18 97 T-piece 6.00 28 08/21/16 18:17 2.00 08/21/16 18:00 90 08/21/16 16:00 96.0 80 22 110/70 99 I/O 08/21/16 08/21/16 08/21/16 08/22/16 08/22/16 08/22/16 07:00 15:00 23:00 07:00 15:00 23:00 Intake Total 1506 ml 659 ml Output Total 600 ml 700 ml 700 ml 300 ml Balance 906 ml -700 ml -41 ml -300 ml Tube Feeding 866 ml 659 ml Other 640 ml Output Urine Total 600 ml 700 ml 700 ml 300 ml # Bowel Movements 1 2 Objective Remarks Gen.: 60 years old bedridden patient, CARDIOVASCULAR: RRR without murmurs.Peripheral pulses symmetric. Trace edema upper extremities. NECK/CHEST: Tracheostomy midline, . On T piece, RESPIRATORY: coarse air bilaterally. Breath sounds equal bilaterally. GASTROINTESTINAL: Abdomen soft, no apparent tenderness, nondistended. No palpable masses. Bowel sounds normoactive. PEG in place MUSCULOSKELETAL: Extremities without clubbing, cyanosis. Trace edema upper extremities No joint effusion noted. No mottling or clubbing.+ Muscle atrophy to all 4 extremities. NEUROLOGICAL: Eyes open on and off, does not track, doesn't follow commands. No movement of all 4 extremities. Procedures 01/02/16 PEG placement 01/02/16 tracheostomy 07/22/2016 Wide excision of sacral skin wound, biopsy of the cavity lining and debridement. PEG tube replacement 07/29/16 Date of Insertion: Aug 03, 2016 A/P Problem List: (1) CVA (cerebral vascular accident) ICD Code: I63.9 Status: Acute (2) A-fib ICD Code: I48.91 Status: Chronic (3) DM (diabetes mellitus) ICD Code: E11.9 Status: Chronic Assessment and Plan 08/22/16. G-tube o'clock.began, IR consulted to evaluate A/P: 1. 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 Patient is nonverbal. Continue Keppra for seizure prophylaxis. PT/OT signed off as patient is unable to participate. 2. Chronic respiratory failure: Secondary to CVA. Status post tracheostomy. Continue pulmonary toilet and bronchodilators as needed. Continue trach care, suctioning. Levsin as needed. 3. Atrial fibrillation: Continue rate control with Cardizem and metoprolol. Echocardiogram in November 2015 shows preserved ejection fraction. Coumadin discontinued secondary to bleeding. Continue aspirin and prophylactic heparin dose. 4. History of non-Hodgkin's lymphoma: Status post brain biopsy on December 13 by neurosurgery. Pathology consistent with acute infarct without evidence of lymphoma. Oncology signed off. 5. Diabetes mellitus: Hemoglobin A1c is 7. Continue Levemir. Monitor Accu-Cheks and cover with sliding scale insulin. 6. Decubitus ulcer stage IV: Continue wound care, twice-daily dressing changes.. Wound care recommendations. Continue pressure relief measures including turning and positioning. Patient's family has declined a diverting colostomy. Wound culture growing Klebsiella. Antibiotics per infectious disease. Status post wide excision of sacral skin and biopsy of the cavity lining with debridement on 07/22/16. 7. Gastric ulcer, reflux esophagitis: EGD on 07/30/16 showed gastric ulcers. Appreciate GI recommendations. Continue PPI. H&H stable. 8. FEN: Continue Nepro tube feeds. Appreciate dietary recommendations. Continue free water flushes. Supplement potassium. 9. Poor prognosis. 10. DVT prophylaxis: SCDs. Problem Qualifiers (1) DM (diabetes mellitus): Qualified Code: E11.9 - Type 2 diabetes mellitus without complications Terrence Gonzalez MD Aug 22, 2016 14:29
--- NOTE | 2016-08-22 15:53 | HHI.IDPN ---
Note Infectious Disease Note ID Follow up. Patient is somnolent but opens eyes easily to voice. Mom notes that he was more awake yesterday. HR 101. Started on Cardizem. Low grade temp. Mom is concerned that he is sleepy. No distress. Less oral and trach secretions. Oxygen sats in high 90's Still getting oxygen via trach collar. Patient had sacral wound debridement and biopsy on 07/22/16. Sacrum wound culture had enterococcus faecalis. Prior Course. This 60-year-old male was admitted to the hospital on December 20 with altered mental status. He was eventually found to have a CVA. He was recently diagnosed with stage III non-Hodgkin's lymphoma about a year ago. The patient was intubated and he underwent tracheostomy and feeding tube placement. He was diagnosed with an acute stroke. PAST MEDICAL HISTORY 1. Hypertension. 2. Stage III non-Hodgkin's lymphoma. 3. Diabetes mellitus. 4. Paroxysmal atrial fibrillation. 5. Brain biopsy in Nov, 2015. 6. History of left arm surgery. ALLERGIES NO KNOWN DRUG ALLERGIES. ANTIBIOTICS: Zyvox. OBJECTIVE: Vital Signs Date Time Temp Pulse Resp B/P Pulse Ox O2 Delivery O2 Flow Rate FiO2 08/22/16 15:00 98 T-piece 6.00 28 08/22/16 12:00 96.1 90 21 94/62 96 08/22/16 08:08 111 08/22/16 08:00 100.2 112 24 113/69 96 08/22/16 07:45 20 08/22/16 04:00 96.8 108 30 119/76 99 08/22/16 00:00 98.7 99 28 130/70 99 08/21/16 20:00 99.7 103 30 139/80 99 08/21/16 18:18 97 T-piece 6.00 28 08/21/16 18:17 2.00 08/21/16 18:00 90 08/21/16 16:00 96.0 80 22 110/70 99 08/21/16 08/21/16 08/22/16 15:00 23:00 07:00 Intake Total 659 ml Output Total 700 ml 700 ml 300 ml Balance -700 ml -41 ml -300 ml Tube Feeding 659 ml Output Urine Total 700 ml 700 ml 300 ml # Bowel Movements 2 IMAGING: Tube Change 08/14/16 0000 Signed Impressions: Service Date/Time: Sunday, August 14, 2016 15:11 - CONCLUSION: Uncomplicated gastrojejunostomy tube exchange as above. Moises Ramírez MD Chest X-Ray 08/01/16 0000 Signed Impressions: Service Date/Time: July 13:51 - CONCLUSION: 1. Stable mild airspace opacity at the left lung base representing either atelectasis or airspace consolidation. 2. New subsegmental atelectasis at the right lung base. Glen Gordon MD Abdomen/Pelvis CT 04/12/16 0000 Signed Impressions: Service Date/Time: Tuesday, April 12, 2016 20:52 - CONCLUSION: 1. 6.4 cm necrotic mass or abscess in the soft tissues posteriorly just below the sacrum associated with some bony destructive change of the lower most sacrum and coccyx with inflammatory changes extending into the ischiorectal fossa and into the presacral retroperitoneum predominantly on the left side. There is associated fairly marked mural thickening of the anal verge and rectum. 2. There is gastrostomy and Arevalo catheter present. Stable abdominal aortic aneurysm. Durga Dotson MD Head Magnetic Resonance Angiography 03/05/16 0000 Signed Impressions: Service Date/Time: Saturday, March 05, 2016 09:26 - CONCLUSION: Persistent high-grade subtotal occlusive stenotic lesions in the distal right vertebral artery and proximal basilar artery with significant improvement in flow and recanalization following initial presentation of thrombosis. Stable interstitial circulation without significant stenosis. 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 There is decreasing restricted diffusion and increasing loss of volume characteristic of a subacute to chronic infarct. No evidence of acute infarct, acute hemorrhage mass or edema. Ernesto Kulkarni MD Head CT 01/16/16 0000 Signed Impressions: Service Date/Time: Saturday, January 16, 2016 10:51 - CONCLUSION: No extensive low density in the brainstem colin more prominent in the right the left extending into the right middle cerebellar peduncle consistent with brainstem infarct nonhemorrhagic acute Wellington West MD Abdomen X-Ray 01/14/16 0000 Signed Impressions: Service Date/Time: Thursday, January 14, 2016 10:19 - CONCLUSION: Moderate stool; otherwise, negative. 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 No evidence of carotid stenosis. Glen Zamora MD Head/Brain Mag Res Venography 12/22/15 0000 Signed Impressions: Service Date/Time: Tuesday, December 22, 2015 09:22 - CONCLUSION: Normal MRV. Jonel Jones Jr., MD PHYSICAL EXAMINATION GENERAL: No acute distress. HEENT: The sclerae are nonicteric. No erythema. Oropharynx - moist mucosa. NECK: Supple without adenopathy. Trach collar. No significant secretions. LUNGS: Decreased BS. HEART: Nl S1S2. No murmurs, rubs or gallops. ABDOMEN: Bowel sounds normal, soft. BACK: Sacrum ulcer. EXTREMITIES: No clubbing, cyanosis or edema. NEUROLOGIC: Unable to fully assess. SKIN: No rash. Arevalo has slight turbid urine. IMPRESSION 1. Sacral wound. Post debridement now with Enterococcus. previously Klebsiella. 2. CVA. 3. Pneumonia. Post tracheostomy. Increased secretions. Left base opacity on CXR. sputum culture with pseudomonas - Treated and resolved. 4. New low grade fever. RECOMMENDATIONS 1. Change Zyvox to Ampicillin for sacrum wound treatment. Would treat for another couple of days. 2. Send urine culture. 3. CXR. 4. Monitor clinical status. Carlos Liu MD Aug 22, 2016 15:53
[2016-08-22] MEDS: PARoxetine HCL SUSP 20 MG/10 ML UDC PEG SCH (17:39)
[2016-08-22 18:58] LABS: BACTERIA, URINE OCC /hpf; BLOOD, URINE MOD (NEG); COMMENT (UR) CATH-CULTURE IND; CULTURE IF INDICATED CATH CULTURE IND; GLUCOSE,URINE NEG (NEG); HYALINE CAST, URINE 10 /lpf (RARE); KETONE, URINE NEG (NEG); MUCUS URINE FEW /lpf (OCC); NITRITE,URINE NEG (NEG); SQUAMOUS EPITHELIAL CELL URINE <1 /hpf (0-5); URINE COLOR YELLOW (YELLW/STRAW)
[2016-08-22] MEDS: INSULIN DETEMIR 100 UNITS/ML VIAL SQ SCH (21:00)
[2016-08-22] MEDS: AMOXICILLIN (TRIHYDRATE) 500 MG CAP PO SCH (21:17)
[2016-08-23] VITALS (8 sets, daily range): BP systolic 101–122; BP diastolic 62–72; PULSE 92–120; RESP 19–24; TEMP 97.3–100.2; O2SAT 94–100
[2016-08-23] MEDS: ACETAMINOPHEN/HYDROcodone 325 MG/5 MG TAB PEG SCH ×5 (01:41→23:14)
[2016-08-23] MEDS: FREE WATER TUBE SCH ×7 (04:00→23:15)
[2016-08-23] MEDS: HEPARIN SODIUM - SQ 10,000 UNITS/ML VIAL SQ SCH ×3 (05:44→22:30)
[2016-08-23] MEDS: ACETIC ACID 0.25% SOLN 1000 ML IRR BTL IRRIGATION SCH ×3 (05:45→22:00)
[2016-08-23] MEDS: AMOXICILLIN (TRIHYDRATE) 500 MG CAP PO SCH ×3 (05:45→22:30)
[2016-08-23] MEDS: INSULIN ASPART SUPPLEMENTAL SCALE SQ SCH (07:00)
[2016-08-23] MEDS: SODIUM CHLORIDE 0.65% NASAL SPRAY 45 ML BTL NASAL SCH ×2 (09:00→21:00)
[2016-08-23] MEDS: ARTIFICIAL TEARS OPTH OINT 3.5 APPLIC/3.5 GM TUBO EACH EYE SCH ×2 (09:00→21:00)
[2016-08-23] MEDS: BACITRACIN TOP OINT 15 GM TUBE TOP SCH ×2 (09:00→21:00)
[2016-08-23] MEDS: POTASSIUM CHLORIDE 25 MEQ EFFERVESCENT TAB TUBE SCH (09:03)
[2016-08-23] MEDS: DILTIAZEM HCL 30 MG TAB PEG SCH ×4 (09:03→22:31)
[2016-08-23] MEDS: ASPIRIN 325 MG TAB TUBE SCH (09:03)
[2016-08-23] MEDS: LACTOBACILLUS ACIDOPHILUS TAB PEG SCH ×3 (09:03→18:51)
[2016-08-23] MEDS: METOPROLOL TARTRATE 50 MG TAB PO SCH ×2 (09:03→21:00)
[2016-08-23] MEDS: levETIRAcetam 500 MG/5 ML UDC TUBE SCH ×2 (09:03→22:30)
[2016-08-23] MEDS: PANTOPRAZOLE SODIUM 40 MG VIAL IV PUSH SCH ×2 (09:04→22:34)
[2016-08-23] MEDS: NYSTATIN 100,000 U/GM PWD 15 GM BTL TOPICAL SCH ×2 (09:04→21:00)
[2016-08-23] MEDS: ACETAMINOPHEN 650 MG/20.3 ML UDC TUBE PRN (12:52)
--- NOTE | 2016-08-23 15:35 | HHI.PR ---
Subjective Remarks Resting in bed, open eyes to voice Discussed with his mother He's having increased heart rate 120, and low-grade fever 100.2, ID following for antibiotic management Objective Vitals Vital Signs Date Time Temp Pulse Resp B/P Pulse Ox O2 Delivery O2 Flow Rate FiO2 08/23/16 12:00 100.2 92 19 105/62 97 08/23/16 10:20 98 T-piece 6.00 28 08/23/16 08:00 99.5 120 24 116/72 95 08/23/16 06:49 100.1 115 22 113/65 94 08/23/16 00:00 99.9 112 22 122/72 100 08/22/16 20:00 99.1 107 20 115/67 98 08/22/16 18:40 20 08/22/16 18:00 105 08/22/16 16:00 99 T-Piece 6.00 28 08/22/16 16:00 98.0 107 19 112/75 99 I/O 08/22/16 08/22/16 08/22/16 08/23/16 08/23/16 08/23/16 07:00 15:00 23:00 07:00 15:00 23:00 Intake Total 1449 ml Output Total 300 ml 500 ml 550 ml 650 ml Balance -300 ml -500 ml 899 ml -650 ml Tube Feeding 849 ml Other 600 ml Output Urine Total 300 ml 500 ml 550 ml 650 ml # Bowel Movements 1 0 0 Objective Remarks Gen.: 60 years old bedridden patient, CARDIOVASCULAR: RRR without murmurs.Peripheral pulses symmetric. Trace edema upper extremities. NECK/CHEST: Tracheostomy midline, . On T piece, RESPIRATORY: coarse air bilaterally. Breath sounds equal bilaterally. GASTROINTESTINAL: Abdomen soft, no apparent tenderness, nondistended. No palpable masses. Bowel sounds normoactive. PEG in place MUSCULOSKELETAL: Extremities without clubbing, cyanosis. Trace edema upper extremities No joint effusion noted. No mottling or clubbing.+ Muscle atrophy to all 4 extremities. NEUROLOGICAL: Eyes open on and off, does not track, doesn't follow commands. No movement of all 4 extremities. Procedures 01/02/16 PEG placement 01/02/16 tracheostomy 07/22/2016 Wide excision of sacral skin wound, biopsy of the cavity lining and debridement. PEG tube replacement 07/29/16 Date of Insertion: Aug 03, 2016 A/P Problem List: (1) CVA (cerebral vascular accident) ICD Code: I63.9 Status: Acute (2) A-fib ICD Code: I48.91 Status: Chronic (3) DM (diabetes mellitus) ICD Code: E11.9 Status: Chronic Assessment and Plan 08/23/16. G-tube functioning status post IR repair, low-grade fever 100.2, with tachycardia of 128>> will increase Lopressor to 75 mg by mouth twice a day, along with Cardizem 30 mg 4 times a day ID change Zyvox to amoxicillin and cefepime, repeat chest x-ray, check CBC in a.m., BMP in a.m. will follow A/P: 1. 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 Patient is nonverbal. Continue Keppra for seizure prophylaxis. PT/OT signed off as patient is unable to participate. 2. Chronic respiratory failure: Secondary to CVA. Status post tracheostomy. Continue pulmonary toilet and bronchodilators as needed. Continue trach care, suctioning. Levsin as needed. 3. Atrial fibrillation: Continue rate control with Cardizem and metoprolol. Echocardiogram in November 2015 shows preserved ejection fraction. Coumadin discontinued secondary to bleeding. Continue aspirin and prophylactic heparin dose. 4. History of non-Hodgkin's lymphoma: Status post brain biopsy on December 13 by neurosurgery. Pathology consistent with acute infarct without evidence of lymphoma. Oncology signed off. 5. Diabetes mellitus: Hemoglobin A1c is 7. Continue Levemir. Monitor Accu-Cheks and cover with sliding scale insulin. 6. Decubitus ulcer stage IV: Continue wound care, twice-daily dressing changes.. Wound care recommendations. Continue pressure relief measures including turning and positioning. Patient's family has declined a diverting colostomy. Wound culture growing Klebsiella. Antibiotics per infectious disease. Status post wide excision of sacral skin and biopsy of the cavity lining with debridement on 07/22/16. 7. Gastric ulcer, reflux esophagitis: EGD on 07/30/16 showed gastric ulcers. Appreciate GI recommendations. Continue PPI. H&H stable. 8. FEN: Continue Nepro tube feeds. Appreciate dietary recommendations. Continue free water flushes. Supplement potassium. 9. Poor prognosis. 10. DVT prophylaxis: SCDs. Problem Qualifiers (1) DM (diabetes mellitus): Qualified Code: E11.9 - Type 2 diabetes mellitus without complications Terrence Gonzalez MD Aug 23, 2016 15:35
--- NOTE | 2016-08-23 15:42 | HHI.IDPN ---
Note Infectious Disease Note ID Follow up. Opens eye to voice. Looks lethargic. Has low grade fever. Patient was somnolent , HR 101. Started on Cardizem. Low grade temp. 08/22/16. Urine culture positive. No distress. Patient had sacral wound debridement and biopsy on 07/22/16. Sacrum wound culture had enterococcus faecalis. Prior Course. This 60-year-old male was admitted to the hospital on December 20 with altered mental status. He was eventually found to have a CVA. He was recently diagnosed with stage III non-Hodgkin's lymphoma about a year ago. The patient was intubated and he underwent tracheostomy and feeding tube placement. He was diagnosed with an acute stroke. PAST MEDICAL HISTORY 1. Hypertension. 2. Stage III non-Hodgkin's lymphoma. 3. Diabetes mellitus. 4. Paroxysmal atrial fibrillation. 5. Brain biopsy in Nov, 2015. 6. History of left arm surgery. ALLERGIES NO KNOWN DRUG ALLERGIES. ANTIBIOTICS: Amoxicillin. OBJECTIVE: Vital Signs Date Time Temp Pulse Resp B/P Pulse Ox O2 Delivery O2 Flow Rate FiO2 08/23/16 12:00 100.2 92 19 105/62 97 08/23/16 10:20 98 T-piece 6.00 28 08/23/16 08:00 99.5 120 24 116/72 95 08/23/16 06:49 100.1 115 22 113/65 94 08/23/16 00:00 99.9 112 22 122/72 100 08/22/16 20:00 99.1 107 20 115/67 98 08/22/16 18:40 20 08/22/16 18:00 105 08/22/16 16:00 99 T-Piece 6.00 28 08/22/16 16:00 98.0 107 19 112/75 99 Vital Signs Date Time Temp Pulse Resp B/P Pulse Ox O2 Delivery O2 Flow Rate FiO2 08/22/16 15:00 98 T-piece 6.00 28 08/22/16 12:00 96.1 90 21 94/62 96 08/22/16 08:08 111 08/22/16 08:00 100.2 112 24 113/69 96 08/22/16 07:45 20 08/22/16 04:00 96.8 108 30 119/76 99 08/22/16 00:00 98.7 99 28 130/70 99 08/21/16 20:00 99.7 103 30 139/80 99 08/21/16 18:18 97 T-piece 6.00 28 08/21/16 18:17 2.00 08/21/16 18:00 90 08/21/16 16:00 96.0 80 22 110/70 99 08/22/16 08/22/16 08/23/16 15:00 23:00 07:00 Intake Total 1449 ml Output Total 500 ml 550 ml 650 ml Balance -500 ml 899 ml -650 ml Tube Feeding 849 ml Other 600 ml Output Urine Total 500 ml 550 ml 650 ml # Bowel Movements 1 0 0 Microbiology Date/Time Procedure Status Source Growth 08/22/16 18:34 Urine Culture - Preliminary Resulted Urine Catheterized Urine Pseudomonas Species PHYSICAL EXAMINATION GENERAL: No acute distress. HEENT: The sclerae are nonicteric. No erythema. Oropharynx - moist mucosa. NECK: Supple without adenopathy. Trach collar. No significant secretions. LUNGS: Coarse BS L>R. HEART: Nl S1S2. No murmurs, rubs or gallops. ABDOMEN: Bowel sounds normal, soft. BACK: Sacrum ulcer. EXTREMITIES: No clubbing, cyanosis or edema. NEUROLOGIC: Unable to fully assess. SKIN: No rash. Arevalo has slight turbid urine with sediment. IMPRESSION 1. Sacral wound. Post debridement now with Enterococcus. previously Klebsiella. 2. CVA. 3. Pneumonia. Post tracheostomy. Increased secretions. Left base opacity on CXR. sputum culture with pseudomonas - Treated and resolved. 4. Sepsis. Probably from UTI. 5. UTI. Pseudomonas. RECOMMENDATIONS 1. Continue Amoxicillin for sacrum wound treatment. Would treat for another couple of Months. 2. Add Cefepime for pseudomonas. 3. CXR. Evaluate for pneumonia. 4. Monitor clinical status. Carlos Liu MD Aug 23, 2016 15:42
--- NOTE | 2016-08-23 16:29 | RADRPT ---
EXAM DATE/TIME: 08/23/2016 16:06 [facility] COMPARISON: CHEST SINGLE AP, August 01, 2016, 13:51. INDICATIONS : Shortness of breath. MEDICAL HISTORY : Hypertension. Diabetes mellitus type II. SURGICAL HISTORY : None. ENCOUNTER: Subsequent ACUITY: 2 weeks PAIN SCORE: 0/10 LOCATION: Bilateral chest FINDINGS: Single AP view of the chest. Tracheostomy tube in place. Low lung volumes with mild elevation of the right hemidiaphragm. Mild hazy opacity at the right lung base. The lungs are otherwise clear. Cardiom ediastinal silhouette within normal limits. No evidence of pleural effusion or pneumothorax. CONCLUSION: Minimal basilar right lung opacity likely representing atelectasis. Kwasi James MD on August 23, 2016 at 16:26 Board Certified Radiologist. This report was verified electronically.
[2016-08-23] MEDS: CEFEPIME INJ 1,000 MG in SODIUM CHLORIDE 0.9% INJ 100 ML IV SCH ×2 (17:21→23:14)
[2016-08-23] MEDS: PARoxetine HCL SUSP 20 MG/10 ML UDC PEG SCH (18:51)
[2016-08-23] MEDS: INSULIN DETEMIR 100 UNITS/ML VIAL SQ SCH (21:00)
[2016-08-24] VITALS (8 sets, daily range): BP systolic 87–119; BP diastolic 58–81; PULSE 78–108; RESP 18–22; TEMP 97.1–99.2; O2SAT 94–99
[2016-08-24] MEDS: FREE WATER TUBE SCH ×6 (04:00→23:57)
[2016-08-24] MEDS: HEPARIN SODIUM - SQ 10,000 UNITS/ML VIAL SQ SCH ×3 (04:51→23:44)
[2016-08-24] MEDS: ACETAMINOPHEN/HYDROcodone 325 MG/5 MG TAB PEG SCH ×3 (04:51→23:46)
[2016-08-24] MEDS: AMOXICILLIN (TRIHYDRATE) 500 MG CAP PO SCH ×3 (04:52→23:44)
[2016-08-24] MEDS: ACETIC ACID 0.25% SOLN 1000 ML IRR BTL IRRIGATION SCH ×3 (04:52→23:44)
[2016-08-24] MEDS: POTASSIUM CHLORIDE 25 MEQ EFFERVESCENT TAB TUBE SCH (07:57)
[2016-08-24] MEDS: CEFEPIME INJ 1,000 MG in SODIUM CHLORIDE 0.9% INJ 100 ML IV SCH ×3 (07:57→23:56)
[2016-08-24] MEDS: levETIRAcetam 500 MG/5 ML UDC TUBE SCH ×2 (07:57→23:44)
[2016-08-24] MEDS: LACTOBACILLUS ACIDOPHILUS TAB PEG SCH ×3 (07:58→16:30)
[2016-08-24] MEDS: DILTIAZEM HCL 30 MG TAB PEG SCH ×4 (07:58→23:46)
[2016-08-24] MEDS: ASPIRIN 325 MG TAB TUBE SCH (07:58)
[2016-08-24] MEDS: METOPROLOL TARTRATE 50 MG TAB PO SCH ×2 (07:58→23:46)
[2016-08-24 08:45] LABS: AUTOMATED NEUTROPHIL # 5.6 TH/MM3 (1.8-7.7); BASOPHIL # 0.1 TH/MM3 (0-0.2); EOSINOPHIL # 0.2 TH/MM3 (0-0.4); EOSINOPHIL % 2.7 % (0.0-4.0); HEMATOCRIT 28.4 % (39.0-51.0); LYMPH % 13.6 % (9.0-44.0); MEAN CELL VOLUME 76.3 FL (80.0-100.0); MEAN CORPUSCULAR HEMOGLOBIN 23.8 PG (27.0-34.0); MEAN CORPUSCULAR HGB CONC 31.2 % (32.0-36.0); MONO % 6.8 % (0.0-8.0); NEUT % 75.9 % (16.0-70.0); PLATELET COUNT 184 TH/MM3 (150-450); RED BLOOD COUNT 3.73 MIL/MM3 (4.50-5.90); RED CELL DISTRIBUTION WIDTH 19.9 % (11.6-17.2); WHITE BLOOD COUNT 7.4 TH/MM3 (4.0-11.0)
[2016-08-24 08:46] LABS: HEMO FLAGS AUTO DIFF
[2016-08-24] MEDS: ARTIFICIAL TEARS OPTH OINT 3.5 APPLIC/3.5 GM TUBO EACH EYE SCH ×2 (08:52→23:47)
[2016-08-24] MEDS: SODIUM CHLORIDE 0.65% NASAL SPRAY 45 ML BTL NASAL SCH ×2 (08:52→23:47)
[2016-08-24] MEDS: BACITRACIN TOP OINT 15 GM TUBE TOP SCH ×2 (08:52→23:46)
[2016-08-24 09:14] LABS: POTASSIUM 3.9 MEQ/L (3.5-5.1)
[2016-08-24] MEDS: PANTOPRAZOLE SODIUM 40 MG VIAL IV PUSH SCH ×2 (10:15→23:56)
--- NOTE | 2016-08-24 11:52 | HHI.PR ---
Subjective Remarks Laying in bed open eyes, he is tracking, following simple command Heart rate better controlled today I discussed with his mother She is concerned about his back wound, explained to her wound care following in that aspect, and infectious disease managing antibiotic Objective Vitals Vital Signs Date Time Temp Pulse Resp B/P Pulse Ox O2 Delivery O2 Flow Rate FiO2 08/24/16 09:07 98.9 108 20 117/64 99 08/24/16 08:45 97 T-Piece 6.00 28 08/24/16 04:00 98.1 96 18 87/58 94 08/24/16 00:00 98.5 78 18 117/81 98 08/23/16 20:00 97.8 97 20 101/68 97 08/23/16 18:00 94 08/23/16 17:30 97.3 92 20 110/70 95 08/23/16 12:00 100.2 92 19 105/62 97 I/O 08/23/16 08/23/16 08/23/16 08/24/16 08/24/16 08/24/16 07:00 15:00 23:00 07:00 15:00 23:00 Intake Total 400 ml 200 ml Output Total 650 ml 800 ml 1000 ml Balance -650 ml -400 ml 200 ml -1000 ml Other 400 ml 200 ml Output Urine Total 650 ml 800 ml 1000 ml # Bowel Movements 0 2 3 1 Result Diagram: 08/24/1682208/24/1623 Objective Remarks Gen.: 60 years old bedridden patient, CARDIOVASCULAR: RRR without murmurs.Peripheral pulses symmetric. Trace edema upper extremities. NECK/CHEST: Tracheostomy midline, . On T piece, RESPIRATORY: coarse air bilaterally. Breath sounds equal bilaterally. GASTROINTESTINAL: Abdomen soft, no apparent tenderness, nondistended. No palpable masses. Bowel sounds normoactive. PEG in place MUSCULOSKELETAL: Extremities without clubbing, cyanosis. Trace edema upper extremities No joint effusion noted. No mottling or clubbing.+ Muscle atrophy to all 4 extremities. NEUROLOGICAL: Eyes open on and off, does not track, doesn't follow commands. No movement of all 4 extremities. Procedures 01/02/16 PEG placement 01/02/16 tracheostomy 07/22/2016 Wide excision of sacral skin wound, biopsy of the cavity lining and debridement. PEG tube replacement 07/29/16 Date of Insertion: Aug 03, 2016 A/P Problem List: (1) CVA (cerebral vascular accident) ICD Code: I63.9 Status: Acute (2) A-fib ICD Code: I48.91 Status: Chronic (3) DM (diabetes mellitus) ICD Code: E11.9 Status: Chronic Assessment and Plan 08/23/16. G-tube functioning status post IR repair, low-grade fever 100.2, with tachycardia of 128>> will increase Lopressor to 75 mg by mouth twice a day, along with Cardizem 30 mg 4 times a day ID change Zyvox to amoxicillin and cefepime, repeat chest x-ray, check CBC in a.m., BMP in a.m. will follow 08/24/16: Heart rate is better on the new Lopressor dose, reviewed CBC as above, appreciate ID follow up, continue on antibiotic may need longer time, A/P: 1. 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 Patient is nonverbal. Continue Keppra for seizure prophylaxis. PT/OT signed off as patient is unable to participate. 2. Chronic respiratory failure: Secondary to CVA. Status post tracheostomy. Continue pulmonary toilet and bronchodilators as needed. Continue trach care, suctioning. Levsin as needed. 3. Atrial fibrillation: Continue rate control with Cardizem and metoprolol. Echocardiogram in November 2015 shows preserved ejection fraction. Coumadin discontinued secondary to bleeding. Continue aspirin and prophylactic heparin dose. 4. History of non-Hodgkin's lymphoma: Status post brain biopsy on December 13 by neurosurgery. Pathology consistent with acute infarct without evidence of lymphoma. Oncology signed off. 5. Diabetes mellitus: Hemoglobin A1c is 7. Continue Levemir. Monitor Accu-Cheks and cover with sliding scale insulin. 6. Decubitus ulcer stage IV: Continue wound care, twice-daily dressing changes.. Wound care recommendations. Continue pressure relief measures including turning and positioning. Patient's family has declined a diverting colostomy. Wound culture growing Klebsiella. Antibiotics per infectious disease. Status post wide excision of sacral skin and biopsy of the cavity lining with debridement on 07/22/16. 7. Gastric ulcer, reflux esophagitis: EGD on 07/30/16 showed gastric ulcers. Appreciate GI recommendations. Continue PPI. H&H stable. 8. FEN: Continue Nepro tube feeds. Appreciate dietary recommendations. Continue free water flushes. Supplement potassium. 9. Poor prognosis. 10. DVT prophylaxis: SCDs. Problem Qualifiers (1) DM (diabetes mellitus): Qualified Code: E11.9 - Type 2 diabetes mellitus without complications Terrence Gonzalez MD Aug 24, 2016 11:52
[2016-08-24 14:26] LABS: SCAN/DIFF AUTO DIFF CONFIRMED
[2016-08-24] MEDS: NYSTATIN 100,000 U/GM PWD 15 GM BTL TOPICAL SCH ×2 (14:30→23:46)
--- NOTE | 2016-08-24 18:18 | HHI.PR ---
Subjective Remarks 60 YO Male with RF, Encephalopathy On Trach collar Cough on suctioning Family at Awake, some tracking of objects noted CXR mild atelactesis Objective Vital Signs Vital Signs Date Time Temp Pulse Resp B/P Pulse Ox O2 Delivery O2 Flow Rate FiO2 08/24/16 17:24 97.1 91 22 110/62 95 08/24/16 14:23 96 T-piece 28 08/24/16 14:23 96 T-piece 28 08/24/16 10:30 99.2 82 22 97/62 98 08/24/16 09:07 98.9 108 20 117/64 99 08/24/16 08:45 97 T-Piece 6.00 28 08/24/16 04:00 98.1 96 18 87/58 94 08/24/16 00:00 98.5 78 18 117/81 98 08/23/16 20:00 97.8 97 20 101/68 97 I/O 08/23/16 08/23/16 08/23/16 08/24/16 08/24/16 08/24/16 07:00 15:00 23:00 07:00 15:00 23:00 Intake Total 400 ml 200 ml Output Total 650 ml 800 ml 1000 ml 900 ml Balance -650 ml -400 ml 200 ml -1000 ml -900 ml Other 400 ml 200 ml Output Urine Total 650 ml 800 ml 1000 ml 900 ml # Bowel Movements 0 2 3 1 Result Diagram: 08/24/1623 08/24/16 0823 Objective Remarks GENERAL: Well-nourished, well-developed patient. SKIN: Warm and dry. HEAD: Normocephalic. EYES: No scleral icterus. No injection or drainage. NECK: Supple, trachea midline. No JVD or lymphadenopathy. trach in place CARDIOVASCULAR: Regular rate and rhythm without murmurs, gallops, or rubs. RESPIRATORY: Breath sounds equal bilaterally. No accessory muscle use. GASTROINTESTINAL: Abdomen soft, non-tender, nondistended. MUSCULOSKELETAL: No cyanosis, or edema. BACK: Nontender without obvious deformity. No CVA tenderness. A/P Assessment and Plan Resp Failure, s/p trach Encephalopathy AF DM PLAN: Trach care TF Cont Keppra DW Family at . Aureliano Grove MD Aug 24, 2016 18:18
[2016-08-24] MEDS: PARoxetine HCL SUSP 20 MG/10 ML UDC PEG SCH (18:39)
[2016-08-24] MEDS: INSULIN DETEMIR 100 UNITS/ML VIAL SQ SCH (23:43)
[2016-08-25 00:31] VITALS: BP 121/75; PULSE 110; RESP 22; TEMP 98.3; O2SAT 97
[2016-08-25 03:35] VITALS: O2SAT 99
[2016-08-25] MEDS: FREE WATER TUBE SCH ×5 (04:00→21:45)
[2016-08-25 04:06] VITALS: BP 127/74; PULSE 87; RESP 20; TEMP 96.2; O2SAT 98
[2016-08-25] MEDS: HEPARIN SODIUM - SQ 10,000 UNITS/ML VIAL SQ SCH ×3 (06:23→21:47)
[2016-08-25] MEDS: AMOXICILLIN (TRIHYDRATE) 500 MG CAP PO SCH ×3 (06:23→21:48)
[2016-08-25] MEDS: ACETAMINOPHEN/HYDROcodone 325 MG/5 MG TAB PEG SCH ×3 (06:23→18:31)
[2016-08-25] MEDS: ACETIC ACID 0.25% SOLN 1000 ML IRR BTL IRRIGATION SCH ×3 (06:38→21:48)
[2016-08-25] MEDS: INSULIN ASPART SUPPLEMENTAL SCALE SQ SCH (06:38)
[2016-08-25 08:09] VITALS: BP 116/69; PULSE 84; RESP 22; TEMP 95.6; O2SAT 97
[2016-08-25] MEDS: METOPROLOL TARTRATE 50 MG TAB PO SCH ×2 (08:17→21:00)
[2016-08-25] MEDS: ASPIRIN 325 MG TAB TUBE SCH (08:19)
[2016-08-25] MEDS: levETIRAcetam 500 MG/5 ML UDC TUBE SCH ×2 (08:19→21:48)
[2016-08-25] MEDS: DILTIAZEM HCL 30 MG TAB PEG SCH ×4 (08:19→21:00)
[2016-08-25] MEDS: LACTOBACILLUS ACIDOPHILUS TAB PEG SCH ×3 (08:19→16:42)
[2016-08-25] MEDS: POTASSIUM CHLORIDE 25 MEQ EFFERVESCENT TAB TUBE SCH (08:19)
[2016-08-25] MEDS: CEFEPIME INJ 1,000 MG in SODIUM CHLORIDE 0.9% INJ 100 ML IV SCH ×2 (08:20→16:43)
[2016-08-25] MEDS: NYSTATIN 100,000 U/GM PWD 15 GM BTL TOPICAL SCH ×2 (09:00→21:45)
[2016-08-25] MEDS: ARTIFICIAL TEARS OPTH OINT 3.5 APPLIC/3.5 GM TUBO EACH EYE SCH ×2 (09:00→21:45)
[2016-08-25] MEDS: SODIUM CHLORIDE 0.65% NASAL SPRAY 45 ML BTL NASAL SCH ×2 (09:00→21:48)
[2016-08-25] MEDS: BACITRACIN TOP OINT 15 GM TUBE TOP SCH ×2 (09:00→21:45)
[2016-08-25] MEDS: PANTOPRAZOLE SODIUM 40 MG VIAL IV PUSH SCH ×2 (09:55→21:48)
[2016-08-25 13:29] VITALS: O2SAT 97
--- NOTE | 2016-08-25 14:12 | HHI.PR ---
Subjective Remarks No acute issue Laying in bed in no benign Mother at the bedside Objective Vitals Vital Signs Date Time Temp Pulse Resp B/P Pulse Ox O2 Delivery O2 Flow Rate FiO2 08/25/16 13:29 97 T-piece 28 08/25/16 13:29 97 T-piece 28 08/25/16 08:09 95.6 84 22 116/69 97 08/25/16 04:06 96.2 87 20 127/74 98 08/25/16 03:35 99 T-piece 28 08/25/16 00:31 98.3 110 22 121/75 97 08/24/16 21:56 99 T-piece 28 08/24/16 21:56 99 T-piece 28 08/24/16 20:15 98.3 93 20 119/69 99 08/24/16 17:24 97.1 91 22 110/62 95 08/24/16 14:23 96 T-piece 28 08/24/16 14:23 96 T-piece 28 I/O 08/24/16 08/24/16 08/24/16 08/25/16 08/25/16 08/25/16 07:00 15:00 23:00 07:00 15:00 23:00 Intake Total 164 ml Output Total 1000 ml 900 ml 550 ml 800 ml 350 ml Balance -1000 ml -900 ml -550 ml -800 ml -186 ml IV Total 164 ml Output Urine Total 1000 ml 900 ml 550 ml 800 ml 350 ml # Bowel Movements 3 1 1 2 Result Diagram: 08/24/1623 08/24/1623 Objective Remarks Gen.: 60 years old bedridden patient, CARDIOVASCULAR: RRR without murmurs.Peripheral pulses symmetric. Trace edema upper extremities. NECK/CHEST: Tracheostomy midline, . On T piece, RESPIRATORY: coarse air bilaterally. Breath sounds equal bilaterally. GASTROINTESTINAL: Abdomen soft, no apparent tenderness, nondistended. No palpable masses. Bowel sounds normoactive. PEG in place MUSCULOSKELETAL: Extremities without clubbing, cyanosis. Trace edema upper extremities No joint effusion noted. No mottling or clubbing.+ Muscle atrophy to all 4 extremities. NEUROLOGICAL: Eyes open on and off, does not track, doesn't follow commands. No movement of all 4 extremities. Procedures 01/02/16 PEG placement 01/02/16 tracheostomy 07/22/2016 Wide excision of sacral skin wound, biopsy of the cavity lining and debridement. PEG tube replacement 07/29/16 Date of Insertion: Aug 03, 2016 A/P Problem List: (1) CVA (cerebral vascular accident) ICD Code: I63.9 Status: Acute (2) A-fib ICD Code: I48.91 Status: Chronic (3) DM (diabetes mellitus) ICD Code: E11.9 Status: Chronic Assessment and Plan 08/23/16. G-tube functioning status post IR repair, low-grade fever 100.2, with tachycardia of 128>> will increase Lopressor to 75 mg by mouth twice a day, along with Cardizem 30 mg 4 times a day ID change Zyvox to amoxicillin and cefepime, repeat chest x-ray, check CBC in a.m., BMP in a.m. will follow 08/24/16: Heart rate is better on the new Lopressor dose, reviewed CBC as above, appreciate ID follow up, continue on antibiotic may need longer time, 08/25/16: No Acute issue continue current care A/P: 1. 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 Patient is nonverbal. Continue Keppra for seizure prophylaxis. PT/OT signed off as patient is unable to participate. 2. Chronic respiratory failure: Secondary to CVA. Status post tracheostomy. Continue pulmonary toilet and bronchodilators as needed. Continue trach care, suctioning. Levsin as needed. 3. Atrial fibrillation: Continue rate control with Cardizem and metoprolol. Echocardiogram in November 2015 shows preserved ejection fraction. Coumadin discontinued secondary to bleeding. Continue aspirin and prophylactic heparin dose. 4. History of non-Hodgkin's lymphoma: Status post brain biopsy on December 13 by neurosurgery. Pathology consistent with acute infarct without evidence of lymphoma. Oncology signed off. 5. Diabetes mellitus: Hemoglobin A1c is 7. Continue Levemir. Monitor Accu-Cheks and cover with sliding scale insulin. 6. Decubitus ulcer stage IV: Continue wound care, twice-daily dressing changes.. Wound care recommendations. Continue pressure relief measures including turning and positioning. Patient's family has declined a diverting colostomy. Wound culture growing Klebsiella. Antibiotics per infectious disease. Status post wide excision of sacral skin and biopsy of the cavity lining with debridement on 07/22/16. 7. Gastric ulcer, reflux esophagitis: EGD on 07/30/16 showed gastric ulcers. Appreciate GI recommendations. Continue PPI. H&H stable. 8. FEN: Continue Nepro tube feeds. Appreciate dietary recommendations. Continue free water flushes. Supplement potassium. 9. Poor prognosis. 10. DVT prophylaxis: SCDs. Problem Qualifiers (1) DM (diabetes mellitus): Qualified Code: E11.9 - Type 2 diabetes mellitus without complications Terrence Gonzalez MD Aug 25, 2016 14:12
--- NOTE | 2016-08-25 16:38 | HHI.PR ---
Subjective Remarks 60 YO Male with RF, Encephalopathy On Trach collar Cough on suctioning Family at Awake, some tracking of objects noted CXR mild atelactesis Family at Objective Vital Signs Vital Signs Date Time Temp Pulse Resp B/P Pulse Ox O2 Delivery O2 Flow Rate FiO2 08/25/16 15:56 98 T-Piece 6.00 28 08/25/16 13:29 97 T-piece 28 08/25/16 13:29 97 T-piece 28 08/25/16 08:09 95.6 84 22 116/69 97 08/25/16 04:06 96.2 87 20 127/74 98 08/25/16 03:35 99 T-piece 28 08/25/16 00:31 98.3 110 22 121/75 97 08/24/16 21:56 99 T-piece 08/24/16 21:56 99 T-piece 08/24/16 20:15 98.3 93 20 119/69 99 08/24/16 17:24 97.1 91 22 110/62 95 I/O 08/24/16 08/24/16 08/24/16 08/25/16 08/25/16 08/25/16 07:00 15:00 23:00 07:00 15:00 23:00 Intake Total 164 ml Output Total 1000 ml 900 ml 550 ml 800 ml 350 ml Balance -1000 ml -900 ml -550 ml -800 ml -186 ml IV Total 164 ml Output Urine Total 1000 ml 900 ml 550 ml 800 ml 350 ml # Bowel Movements 3 1 1 2 Result Diagram: 08/24/1682208/24/16 0823 Objective Remarks GENERAL: Well-nourished, well-developed patient. SKIN: Warm and dry. HEAD: Normocephalic. EYES: No scleral icterus. No injection or drainage. NECK: Supple, trachea midline. No JVD or lymphadenopathy. trach in place CARDIOVASCULAR: Regular rate and rhythm without murmurs, gallops, or rubs. RESPIRATORY: Breath sounds equal bilaterally. No accessory muscle use. GASTROINTESTINAL: Abdomen soft, non-tender, nondistended. MUSCULOSKELETAL: No cyanosis, or edema. BACK: Nontender without obvious deformity. No CVA tenderness. A/P Assessment and Plan Resp Failure, s/p trach Encephalopathy AF DM PLAN: Trach care TF Cont Cristopher MCFARLANE Family at . Dr. Brandon joseph FU in AM. Aureliano Grove MD Aug 25, 2016 16:38
[2016-08-25] MEDS: PARoxetine HCL SUSP 20 MG/10 ML UDC PEG SCH (18:31)
[2016-08-25 20:00] VITALS: BP 110/70; PULSE 89; RESP 22; TEMP 97.8; O2SAT 96
[2016-08-25] MEDS: INSULIN DETEMIR 100 UNITS/ML VIAL SQ SCH (21:46)
[2016-08-25] MEDS: SODIUM CHLORIDE 0.9% FLUSH 5 ML FLUSH IVF PRN (21:50)
[2016-08-26] VITALS (11 sets, daily range): BP systolic 112–142; BP diastolic 56–79; PULSE 86–100; RESP 17–22; TEMP 96.1–98.5; O2SAT 92–100
[2016-08-26] MEDS: SODIUM CHLORIDE 0.9% FLUSH 5 ML FLUSH IVF PRN (00:20)
[2016-08-26] MEDS: ACETAMINOPHEN/HYDROcodone 325 MG/5 MG TAB PEG SCH ×4 (00:20→18:24)
[2016-08-26] MEDS: CEFEPIME INJ 1,000 MG in SODIUM CHLORIDE 0.9% INJ 100 ML IV SCH ×3 (00:20→16:06)
[2016-08-26] MEDS: FREE WATER TUBE SCH ×6 (00:21→20:00)
[2016-08-26] MEDS: ACETIC ACID 0.25% SOLN 1000 ML IRR BTL IRRIGATION SCH ×3 (06:08→22:11)
[2016-08-26] MEDS: HEPARIN SODIUM - SQ 10,000 UNITS/ML VIAL SQ SCH ×3 (06:08→22:09)
[2016-08-26] MEDS: AMOXICILLIN (TRIHYDRATE) 500 MG CAP PO SCH ×3 (06:08→22:10)
[2016-08-26] MEDS: INSULIN ASPART SUPPLEMENTAL SCALE SQ SCH (06:10)
[2016-08-26] MEDS: levETIRAcetam 500 MG/5 ML UDC TUBE SCH ×2 (08:22→22:11)
[2016-08-26] MEDS: POTASSIUM CHLORIDE 25 MEQ EFFERVESCENT TAB TUBE SCH (08:22)
[2016-08-26] MEDS: LACTOBACILLUS ACIDOPHILUS TAB PEG SCH ×3 (08:23→18:24)
[2016-08-26] MEDS: DILTIAZEM HCL 30 MG TAB PEG SCH ×4 (08:23→22:10)
[2016-08-26] MEDS: ASPIRIN 325 MG TAB TUBE SCH (08:23)
[2016-08-26] MEDS: METOPROLOL TARTRATE 50 MG TAB PO SCH ×2 (08:25→22:10)
[2016-08-26] MEDS: SODIUM CHLORIDE 0.65% NASAL SPRAY 45 ML BTL NASAL SCH ×2 (09:00→22:12)
[2016-08-26] MEDS: NYSTATIN 100,000 U/GM PWD 15 GM BTL TOPICAL SCH ×2 (09:00→22:12)
[2016-08-26] MEDS: ARTIFICIAL TEARS OPTH OINT 3.5 APPLIC/3.5 GM TUBO EACH EYE SCH ×2 (09:00→22:12)
[2016-08-26] MEDS: BACITRACIN TOP OINT 15 GM TUBE TOP SCH ×2 (09:00→22:13)
[2016-08-26] MEDS: PANTOPRAZOLE SODIUM 40 MG VIAL IV PUSH SCH ×2 (10:15→22:35)
--- NOTE | 2016-08-26 15:58 | HHI.PR ---
Subjective Remarks Stenting in bed, open eyes, no acute issue Objective Vitals Vital Signs Date Time Temp Pulse Resp B/P Pulse Ox O2 Delivery O2 Flow Rate FiO2 08/26/16 12:00 97.6 86 18 120/76 99 08/26/16 09:27 98 T-piece 28 08/26/16 08:00 97.8 87 20 127/77 99 08/26/16 07:00 100 08/26/16 07:00 Trach Collar 6.00 28 T-Piece 08/26/16 04:00 96.1 90 22 120/79 100 08/26/16 03:20 98 T-piece 6.00 28 08/26/16 00:00 97.8 93 20 142/72 92 08/25/16 20:00 97.8 89 22 110/70 96 I/O 08/25/16 08/25/16 08/25/16 08/26/16 08/26/16 08/26/16 06:59 14:59 22:59 06:59 14:59 22:59 Intake Total 164 ml Output Total 800 ml 350 ml 775 ml 1100 ml Balance -800 ml -186 ml -775 ml -1100 ml IV Total 164 ml Output Urine Total 800 ml 350 ml 775 ml 1100 ml # Bowel Movements 1 2 0 0 Result Diagram: 08/24/1682208/24/16822 Objective Remarks Gen.: 60 years old bedridden patient, NEUROLOGICAL: Eyes open on and off, does not track, doesn't follow commands. No movement of all 4 extremities. Procedures 01/02/16 PEG placement 01/02/16 tracheostomy 07/22/2016 Wide excision of sacral skin wound, biopsy of the cavity lining and debridement. PEG tube replacement 07/29/16 Date of Insertion: Aug 03, 2016 A/P Problem List: (1) CVA (cerebral vascular accident) ICD Code: I63.9 Status: Acute (2) A-fib ICD Code: I48.91 Status: Chronic (3) DM (diabetes mellitus) ICD Code: E11.9 Status: Chronic Assessment and Plan 08/23/16. G-tube functioning status post IR repair, low-grade fever 100.2, with tachycardia of 128>> will increase Lopressor to 75 mg by mouth twice a day, along with Cardizem 30 mg 4 times a day ID change Zyvox to amoxicillin and cefepime, repeat chest x-ray, check CBC in a.m., BMP in a.m. will follow 08/24/16: Heart rate is better on the new Lopressor dose, reviewed CBC as above, appreciate ID follow up, continue on antibiotic may need longer time, 08/25/16: No Acute issue continue current care 08/26/16: Continue current care, ID added Levaquin A/P: 1. 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 Patient is nonverbal. Continue Keppra for seizure prophylaxis. PT/OT signed off as patient is unable to participate. 2. Chronic respiratory failure: Secondary to CVA. Status post tracheostomy. Continue pulmonary toilet and bronchodilators as needed. Continue trach care, suctioning. Levsin as needed. 3. Atrial fibrillation: Continue rate control with Cardizem and metoprolol. Echocardiogram in November 2015 shows preserved ejection fraction. Coumadin discontinued secondary to bleeding. Continue aspirin and prophylactic heparin dose. 4. History of non-Hodgkin's lymphoma: Status post brain biopsy on December 13 by neurosurgery. Pathology consistent with acute infarct without evidence of lymphoma. Oncology signed off. 5. Diabetes mellitus: Hemoglobin A1c is 7. Continue Levemir. Monitor Accu-Cheks and cover with sliding scale insulin. 6. Decubitus ulcer stage IV: Continue wound care, twice-daily dressing changes.. Wound care recommendations. Continue pressure relief measures including turning and positioning. Patient's family has declined a diverting colostomy. Wound culture growing Klebsiella. Antibiotics per infectious disease. Status post wide excision of sacral skin and biopsy of the cavity lining with debridement on 07/22/16. 7. Gastric ulcer, reflux esophagitis: EGD on 07/30/16 showed gastric ulcers. Appreciate GI recommendations. Continue PPI. H&H stable. 8. FEN: Continue Nepro tube feeds. Appreciate dietary recommendations. Continue free water flushes. Supplement potassium. 9. Poor prognosis. 10. DVT prophylaxis: SCDs. Problem Qualifiers (1) DM (diabetes mellitus): Qualified Code: E11.9 - Type 2 diabetes mellitus without complications Terrence Gonzalez MD Aug 26, 2016 15:58 (1) DM (diabetes mellitus): Qualified Code: E11.9 - Type 2 diabetes mellitus without complications Terrence Gonzalez MD Aug 26, 2016 15:58
[2016-08-26] MEDS: PARoxetine HCL SUSP 20 MG/10 ML UDC PEG SCH (18:24)
[2016-08-26] MEDS: INSULIN DETEMIR 100 UNITS/ML VIAL SQ SCH (22:10)
[2016-08-27] VITALS (9 sets, daily range): BP systolic 103–125; BP diastolic 65–79; PULSE 83–95; RESP 19–22; TEMP 95.6–98.5; O2SAT 97–100
[2016-08-27 00:53] LABS: BACTERIA, URINE RARE /hpf; BLOOD, URINE NEG (NEG); CALCIUM OXALATE CRYSTALS,URINE RARE /hpf; GLUCOSE,URINE NEG (NEG); HYALINE CAST, URINE 6 /lpf (RARE); KETONE, URINE NEG (NEG); MUCUS URINE MANY /lpf (OCC); NITRITE,URINE NEG (NEG); URINE COLOR YELLOW (YELLW/STRAW)
[2016-08-27 00:54] LABS: COMMENT (UR) CATH-CULTURE IND; CULTURE IF INDICATED CATH CULTURE IND
[2016-08-27] MEDS: ACETAMINOPHEN/HYDROcodone 325 MG/5 MG TAB PEG SCH ×4 (01:01→18:00)
[2016-08-27] MEDS: CEFEPIME INJ 1,000 MG in SODIUM CHLORIDE 0.9% INJ 100 ML IV SCH ×3 (01:01→16:00)
[2016-08-27] MEDS: ACETIC ACID 0.25% SOLN 1000 ML IRR BTL IRRIGATION SCH ×3 (06:00→22:45)
[2016-08-27] MEDS: FREE WATER TUBE SCH ×5 (08:00→20:00)
[2016-08-27] MEDS: POTASSIUM CHLORIDE 25 MEQ EFFERVESCENT TAB TUBE SCH (08:09)
[2016-08-27] MEDS: ASPIRIN 325 MG TAB TUBE SCH (08:10)
[2016-08-27] MEDS: METOPROLOL TARTRATE 50 MG TAB PO SCH ×2 (08:10→22:43)
[2016-08-27] MEDS: DILTIAZEM HCL 30 MG TAB PEG SCH ×4 (08:11→22:43)
[2016-08-27] MEDS: levETIRAcetam 500 MG/5 ML UDC TUBE SCH ×2 (08:11→22:43)
[2016-08-27] MEDS: LACTOBACILLUS ACIDOPHILUS TAB PEG SCH ×3 (08:11→18:04)
[2016-08-27] MEDS: ARTIFICIAL TEARS OPTH OINT 3.5 APPLIC/3.5 GM TUBO EACH EYE SCH ×2 (08:27→22:45)
[2016-08-27] MEDS: SODIUM CHLORIDE 0.65% NASAL SPRAY 45 ML BTL NASAL SCH ×2 (08:28→21:00)
[2016-08-27] MEDS: NYSTATIN 100,000 U/GM PWD 15 GM BTL TOPICAL SCH ×2 (08:29→22:44)
[2016-08-27] MEDS: BACITRACIN TOP OINT 15 GM TUBE TOP SCH ×2 (08:29→22:44)
[2016-08-27] MEDS: PANTOPRAZOLE SODIUM 40 MG VIAL IV PUSH SCH ×2 (12:29→22:45)
[2016-08-27] MEDS: AMOXICILLIN (TRIHYDRATE) 500 MG CAP PO SCH ×2 (14:00→22:43)
[2016-08-27] MEDS: HEPARIN SODIUM - SQ 10,000 UNITS/ML VIAL SQ SCH ×2 (14:00→22:43)
--- NOTE | 2016-08-27 16:28 | HHI.PR ---
Subjective Remarks No acute issue, patient is open eyes, afebrile Objective Vitals Vital Signs Date Time Temp Pulse Resp B/P Pulse Ox O2 Delivery O2 Flow Rate FiO2 08/27/16 14:00 96.8 87 20 121/79 100 08/27/16 12:22 95.8 87 20 106/69 98 08/27/16 09:07 99 T-piece 28 08/27/16 09:07 99 T-piece 28 08/27/16 08:00 95.6 86 22 117/68 98 08/27/16 05:34 97.5 83 19 106/68 99 08/27/16 00:56 98.5 89 19 103/65 98 08/26/16 21:07 96 T-piece 6.00 28 08/26/16 21:07 96 T-piece 6.00 28 08/26/16 20:30 97.3 89 19 112/69 100 08/26/16 20:00 100 Trach Collar 6.00 28 T-Piece 08/26/16 20:00 91 I/O 08/26/16 08/26/16 08/26/16 08/27/16 08/27/16 08/27/16 07:00 15:00 23:00 07:00 15:00 23:00 Output Total 1100 ml 1600 ml 1150 ml 1100 ml Balance -1100 ml -1600 ml -1150 ml -1100 ml Output Urine Total 1100 ml 1600 ml 1150 ml 1100 ml # Bowel Movements 0 2 1 2 Result Diagram: 08/24/16 0823 08/24/16 0823 Objective Remarks Gen.: 60 years old bedridden patient, NEUROLOGICAL: Eyes open on and off, does not track, doesn't follow commands. No movement of all 4 extremities. Procedures 01/02/16 PEG placement 01/02/16 tracheostomy 07/22/2016 Wide excision of sacral skin wound, biopsy of the cavity lining and debridement. PEG tube replacement 07/29/16 Date of Insertion: Aug 03, 2016 A/P Problem List: (1) CVA (cerebral vascular accident) ICD Code: I63.9 Status: Acute (2) A-fib ICD Code: I48.91 Status: Chronic (3) DM (diabetes mellitus) ICD Code: E11.9 Status: Chronic Assessment and Plan 08/23/16. G-tube functioning status post IR repair, low-grade fever 100.2, with tachycardia of 128>> will increase Lopressor to 75 mg by mouth twice a day, along with Cardizem 30 mg 4 times a day ID change Zyvox to amoxicillin and cefepime, repeat chest x-ray, check CBC in a.m., BMP in a.m. will follow 08/24/16: Heart rate is better on the new Lopressor dose, reviewed CBC as above, appreciate ID follow up, continue on antibiotic may need longer time, 08/25/16: No Acute issue continue current care 08/26/16: Continue current care, ID added Levaquin 08/27/16: No acute issue continuing ongoing management A/P: 1. 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 Patient is nonverbal. Continue Keppra for seizure prophylaxis. PT/OT signed off as patient is unable to participate. 2. Chronic respiratory failure: Secondary to CVA. Status post tracheostomy. Continue pulmonary toilet and bronchodilators as needed. Continue trach care, suctioning. Levsin as needed. 3. Atrial fibrillation: Continue rate control with Cardizem and metoprolol. Echocardiogram in November 2015 shows preserved ejection fraction. Coumadin discontinued secondary to bleeding. Continue aspirin and prophylactic heparin dose. 4. History of non-Hodgkin's lymphoma: Status post brain biopsy on December 13 by neurosurgery. Pathology consistent with acute infarct without evidence of lymphoma. Oncology signed off. 5. Diabetes mellitus: Hemoglobin A1c is 7. Continue Levemir. Monitor Accu-Cheks and cover with sliding scale insulin. 6. Decubitus ulcer stage IV: Continue wound care, twice-daily dressing changes.. Wound care recommendations. Continue pressure relief measures including turning and positioning. Patient's family has declined a diverting colostomy. Wound culture growing Klebsiella. Antibiotics per infectious disease. Status post wide excision of sacral skin and biopsy of the cavity lining with debridement on 07/22/16. 7. Gastric ulcer, reflux esophagitis: EGD on 07/30/16 showed gastric ulcers. Appreciate GI recommendations. Continue PPI. H&H stable. 8. FEN: Continue Nepro tube feeds. Appreciate dietary recommendations. Continue free water flushes. Supplement potassium. 9. Poor prognosis. 10. DVT prophylaxis: SCDs. Problem Qualifiers (1) DM (diabetes mellitus): Qualified Code: E11.9 - Type 2 diabetes mellitus without complications Terrence Gonzalez MD Aug 27, 2016 16:28
[2016-08-27] MEDS: PARoxetine HCL SUSP 20 MG/10 ML UDC PEG SCH (18:04)
[2016-08-27] MEDS: INSULIN DETEMIR 100 UNITS/ML VIAL SQ SCH (22:44)
[2016-08-28] VITALS (10 sets, daily range): BP systolic 115–130; BP diastolic 69–80; PULSE 85–90; RESP 17–21; TEMP 97.4–98.9; O2SAT 96–100
[2016-08-28] MEDS: CEFEPIME INJ 1,000 MG in SODIUM CHLORIDE 0.9% INJ 100 ML IV SCH ×4 (00:27→23:30)
[2016-08-28] MEDS: FREE WATER TUBE SCH ×7 (04:00→23:31)
[2016-08-28] MEDS: ACETAMINOPHEN/HYDROcodone 325 MG/5 MG TAB PEG SCH ×5 (05:40→23:31)
[2016-08-28] MEDS: AMOXICILLIN (TRIHYDRATE) 500 MG CAP PO SCH ×3 (05:41→22:06)
[2016-08-28] MEDS: HEPARIN SODIUM - SQ 10,000 UNITS/ML VIAL SQ SCH ×3 (05:41→22:06)
[2016-08-28] MEDS: ACETIC ACID 0.25% SOLN 1000 ML IRR BTL IRRIGATION SCH ×3 (05:41→22:07)
[2016-08-28] MEDS: INSULIN ASPART SUPPLEMENTAL SCALE SQ SCH (06:25)
[2016-08-28] MEDS: BACITRACIN TOP OINT 15 GM TUBE TOP SCH ×2 (08:25→22:07)
[2016-08-28] MEDS: NYSTATIN 100,000 U/GM PWD 15 GM BTL TOPICAL SCH ×2 (08:25→22:06)
[2016-08-28] MEDS: ARTIFICIAL TEARS OPTH OINT 3.5 APPLIC/3.5 GM TUBO EACH EYE SCH ×2 (08:26→22:07)
[2016-08-28] MEDS: SODIUM CHLORIDE 0.65% NASAL SPRAY 45 ML BTL NASAL SCH ×2 (08:26→21:00)
[2016-08-28] MEDS: ASPIRIN 325 MG TAB TUBE SCH (08:28)
[2016-08-28] MEDS: LACTOBACILLUS ACIDOPHILUS TAB PEG SCH ×3 (08:28→18:00)
[2016-08-28] MEDS: levETIRAcetam 500 MG/5 ML UDC TUBE SCH ×2 (08:28→22:06)
[2016-08-28] MEDS: POTASSIUM CHLORIDE 25 MEQ EFFERVESCENT TAB TUBE SCH (08:28)
[2016-08-28] MEDS: METOPROLOL TARTRATE 50 MG TAB PO SCH ×2 (09:41→22:06)
[2016-08-28] MEDS: DILTIAZEM HCL 30 MG TAB PEG SCH ×4 (09:41→22:06)
[2016-08-28] MEDS: PANTOPRAZOLE SODIUM 40 MG VIAL IV PUSH SCH ×2 (11:50→22:16)
--- NOTE | 2016-08-28 14:43 | HHI.PR ---
Subjective Remarks Laying in bed closed eyes no acute issue I discussed with the mother who is with him almost 16 hours during the day, she told me he seems to be stable for her today Objective Vitals Vital Signs Date Time Temp Pulse Resp B/P Pulse Ox O2 Delivery O2 Flow Rate FiO2 08/28/16 12:51 20 08/28/16 12:00 97.4 85 21 115/74 98 08/28/16 11:55 98 T-Piece 28 08/28/16 11:15 85 08/28/16 10:20 96 T-piece 28 08/28/16 10:20 96 T-piece 28 08/28/16 07:55 97.7 90 21 130/73 100 08/28/16 06:00 98.9 89 17 115/80 100 08/28/16 00:47 85 08/28/16 00:00 98.0 89 18 120/74 98 08/27/16 22:20 97 T-piece 6.00 28 08/27/16 22:20 97 T-piece 6.00 28 08/27/16 21:00 98 T-Piece 28 08/27/16 20:30 97.6 95 19 125/75 98 I/O 08/27/16 08/27/16 08/27/16 08/28/16 08/28/16 08/28/16 07:00 15:00 23:00 07:00 15:00 23:00 Intake Total 0 ml 0 ml Output Total 1150 ml 1700 ml 600 ml Balance -1150 ml -1700 ml -600 ml Intake Oral 0 ml 0 ml Output Urine Total 1150 ml 1700 ml 600 ml # Bowel Movements 1 2 1 Result Diagram: 08/24/16 0823 08/24/16 0823 Objective Remarks Gen.: 60 years old bedridden patient, NEUROLOGICAL: Eyes open on and off, does not track, doesn't follow commands. No movement of all 4 extremities. Procedures 01/02/16 PEG placement 01/02/16 tracheostomy 07/22/2016 Wide excision of sacral skin wound, biopsy of the cavity lining and debridement. PEG tube replacement 07/29/16 Date of Insertion: Aug 03, 2016 A/P Problem List: (1) CVA (cerebral vascular accident) ICD Code: I63.9 Status: Acute (2) A-fib ICD Code: I48.91 Status: Chronic (3) DM (diabetes mellitus) ICD Code: E11.9 Status: Chronic Assessment and Plan A/P: 1. 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 Patient is nonverbal. Continue Keppra for seizure prophylaxis. PT/OT signed off as patient is unable to participate. 2. Chronic respiratory failure: Secondary to CVA. Status post tracheostomy. Continue pulmonary toilet and bronchodilators as needed. Continue trach care, suctioning. Levsin as needed. 3. Atrial fibrillation: Continue rate control with Cardizem and metoprolol. Echocardiogram in November 2015 shows preserved ejection fraction. Coumadin discontinued secondary to bleeding. Continue aspirin and prophylactic heparin dose. 4. History of non-Hodgkin's lymphoma: Status post brain biopsy on December 13 by neurosurgery. Pathology consistent with acute infarct without evidence of lymphoma. Oncology signed off. 5. Diabetes mellitus: Hemoglobin A1c is 7. Continue Levemir. Monitor Accu-Cheks and cover with sliding scale insulin. 6. Decubitus ulcer stage IV: Continue wound care, twice-daily dressing changes.. Wound care recommendations. Continue pressure relief measures including turning and positioning. Patient's family has declined a diverting colostomy. Wound culture growing Klebsiella. Antibiotics per infectious disease. Status post wide excision of sacral skin and biopsy of the cavity lining with debridement on 07/22/16. 7. Gastric ulcer, reflux esophagitis: EGD on 07/30/16 showed gastric ulcers. Appreciate GI recommendations. Continue PPI. H&H stable. 8. FEN: Continue Nepro tube feeds. Appreciate dietary recommendations. Continue free water flushes. Supplement potassium. 9. Poor prognosis. 10. DVT prophylaxis: SCDs. Problem Qualifiers (1) DM (diabetes mellitus): Qualified Code: E11.9 - Type 2 diabetes mellitus without complications Terrence Gonzalez MD Aug 28, 2016 14:43
[2016-08-28] MEDS: PARoxetine HCL SUSP 20 MG/10 ML UDC PEG SCH (18:16)
[2016-08-28] MEDS: INSULIN DETEMIR 100 UNITS/ML VIAL SQ SCH (22:06)
[2016-08-29] VITALS (9 sets, daily range): BP systolic 104–137; BP diastolic 65–77; PULSE 73–97; RESP 18–22; TEMP 96.9–99.9; O2SAT 96–100
[2016-08-29] MEDS: FREE WATER TUBE SCH ×6 (04:00→23:56)
[2016-08-29] MEDS: AMOXICILLIN (TRIHYDRATE) 500 MG CAP PO SCH ×3 (06:11→20:42)
[2016-08-29] MEDS: ACETAMINOPHEN/HYDROcodone 325 MG/5 MG TAB PEG SCH ×4 (06:12→23:58)
[2016-08-29] MEDS: HEPARIN SODIUM - SQ 10,000 UNITS/ML VIAL SQ SCH ×3 (06:12→20:43)
[2016-08-29] MEDS: ACETIC ACID 0.25% SOLN 1000 ML IRR BTL IRRIGATION SCH ×3 (06:13→20:43)
[2016-08-29] MEDS: INSULIN ASPART SUPPLEMENTAL SCALE SQ SCH (07:10)
[2016-08-29] MEDS: CEFEPIME INJ 1,000 MG in SODIUM CHLORIDE 0.9% INJ 100 ML IV SCH ×3 (08:07→23:49)
[2016-08-29] MEDS: NYSTATIN 100,000 U/GM PWD 15 GM BTL TOPICAL SCH ×2 (08:08→20:43)
[2016-08-29] MEDS: ARTIFICIAL TEARS OPTH OINT 3.5 APPLIC/3.5 GM TUBO EACH EYE SCH ×2 (08:08→20:44)
[2016-08-29] MEDS: SODIUM CHLORIDE 0.65% NASAL SPRAY 45 ML BTL NASAL SCH ×2 (08:08→20:44)
[2016-08-29] MEDS: BACITRACIN TOP OINT 15 GM TUBE TOP SCH ×2 (08:08→20:43)
[2016-08-29] MEDS: POTASSIUM CHLORIDE 25 MEQ EFFERVESCENT TAB TUBE SCH (08:19)
[2016-08-29] MEDS: levETIRAcetam 500 MG/5 ML UDC TUBE SCH ×2 (08:19→20:43)
[2016-08-29] MEDS: LACTOBACILLUS ACIDOPHILUS TAB PEG SCH ×3 (08:19→18:16)
[2016-08-29] MEDS: METOPROLOL TARTRATE 50 MG TAB PO SCH ×2 (08:20→20:43)
[2016-08-29] MEDS: ASPIRIN 325 MG TAB TUBE SCH (08:20)
[2016-08-29] MEDS: DILTIAZEM HCL 30 MG TAB PEG SCH ×4 (08:20→20:42)
[2016-08-29] MEDS: PANTOPRAZOLE SODIUM 40 MG VIAL IV PUSH SCH ×2 (09:10→20:44)
--- NOTE | 2016-08-29 12:09 | HHI.PR ---
Subjective Remarks Appesrs in NAD. Family and mother at bedside. No events overnight. Mother says no change. Says urine in floey is clearing up since he got abx. VS has been stable. Objective Vitals Vital Signs Date Time Temp Pulse Resp B/P Pulse Ox O2 Delivery O2 Flow Rate FiO2 08/29/16 09:04 97 T-piece 6.00 35 08/29/16 09:04 97 T-piece 6.00 35 08/29/16 08:34 97.9 97 22 119/74 99 08/29/16 06:51 96 08/29/16 04:00 97.2 73 22 109/66 98 08/29/16 00:00 97.3 87 20 137/77 100 08/28/16 23:00 85 08/28/16 22:18 100 T-Piece 28 08/28/16 20:00 97.8 90 20 130/69 99 08/28/16 18:08 99 T-piece 6.00 28 08/28/16 12:51 20 I/O 08/28/16 08/28/16 08/28/16 08/29/16 08/29/16 08/29/16 07:00 15:00 23:00 07:00 15:00 23:00 Intake Total 0 ml 803 ml 1665 ml Output Total 600 ml 1600 ml 1100 ml Balance -600 ml -797 ml -1100 ml 1665 ml Intake Oral 0 ml IV Total 105 ml Tube Feeding 803 ml 960 ml Other 600 ml Output Urine Total 600 ml 1600 ml 1100 ml # Bowel Movements 1 2 1 Imaging Last Impressions Chest X-Ray 08/23/16 0000 Signed Impressions: Service Date/Time: Tuesday, August 23, 2016 16:06 - CONCLUSION: Minimal basilar right lung opacity likely representing atelectasis. Kwasi James MD Tube Change 08/14/16 0000 Signed Impressions: Service Date/Time: Sunday, August 14, 2016 15:11 - CONCLUSION: Uncomplicated gastrojejunostomy tube exchange as above. Moises Ramírez MD Abdomen/Pelvis CT 04/12/16 0000 Signed Impressions: Service Date/Time: Tuesday, April 12, 2016 20:52 - CONCLUSION: 1. 6.4 cm necrotic mass or abscess in the soft tissues posteriorly just below the sacrum associated with some bony destructive change of the lower most sacrum and coccyx with inflammatory changes extending into the ischiorectal fossa and into the presacral retroperitoneum predominantly on the left side. There is associated fairly marked mural thickening of the anal verge and rectum. 2. There is gastrostomy and Arevalo catheter present. Stable abdominal aortic aneurysm. Durga Dotson MD Head Magnetic Resonance Angiography 03/05/16 0000 Signed Impressions: Service Date/Time: Saturday, March 05, 2016 09:26 - CONCLUSION: Persistent high-grade subtotal occlusive stenotic lesions in the distal right vertebral artery and proximal basilar artery with significant improvement in flow and recanalization following initial presentation of thrombosis. Stable interstitial circulation without significant stenosis. 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 There is decreasing restricted diffusion and increasing loss of volume characteristic of a subacute to chronic infarct. No evidence of acute infarct, acute hemorrhage mass or edema. Ernesto Kulkarni MD Head CT 01/16/16 0000 Signed Impressions: Service Date/Time: Saturday, January 16, 2016 10:51 - CONCLUSION: No extensive low density in the brainstem colin more prominent in the right the left extending into the right middle cerebellar peduncle consistent with brainstem infarct nonhemorrhagic acute Wellington West MD Abdomen X-Ray 01/14/16 0000 Signed Impressions: Service Date/Time: Thursday, January 14, 2016 10:19 - CONCLUSION: Moderate stool; otherwise, negative. 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 No evidence of carotid stenosis. Glen Zamora MD Head/Brain Mag Res Venography 12/22/15 0000 Signed Impressions: Service Date/Time: Tuesday, December 22, 2015 09:22 - CONCLUSION: Normal MRV. Jonel Jones Jr., MD Objective Remarks Sacral ulcer with appropriate wound care GENERAL: This is a well-nourished, well-developed patient, eyes closed CARDIOVASCULAR: Sinus regular rate without murmurs, gallops, or rubs. RESPIRATORY: Tracheostomy Clear to auscultation. Breath sounds equal bilaterally. No wheezes, rales, or rhonchi. GASTROINTESTINAL: PEG tube Abdomen soft, non-tender, nondistended. Normal active bowel sounds MUSCULOSKELETAL: Extremities without clubbing, cyanosis, or edema. NEURO: Encephalopathic, sleeping Procedures 01/02/16 PEG placement 01/02/16 tracheostomy 07/22/2016 Wide excision of sacral skin wound, biopsy of the cavity lining and debridement. PEG tube replacement 07/29/16 Date of Insertion: Aug 03, 2016 A/P Problem List: (1) CVA (cerebral vascular accident) ICD Code: I63.9 Status: Acute (2) A-fib ICD Code: I48.91 Status: Chronic (3) DM (diabetes mellitus) ICD Code: E11.9 Status: Chronic Assessment and Plan A/P: 1. 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 Patient is nonverbal. Continue Keppra for seizure prophylaxis. PT/OT signed off as patient is unable to participate. 2. Chronic respiratory failure: Secondary to CVA. Status post tracheostomy. Continue pulmonary toilet and bronchodilators as needed. Continue trach care, suctioning. Levsin as needed. 3. Atrial fibrillation: Continue rate control with Cardizem and metoprolol. Echocardiogram in November 2015 shows preserved ejection fraction. Coumadin discontinued secondary to bleeding. Continue aspirin and prophylactic heparin dose. 4. History of non-Hodgkin's lymphoma: Status post brain biopsy on December 13 by neurosurgery. Pathology consistent with acute infarct without evidence of lymphoma. Oncology signed off. 5. Diabetes mellitus: Hemoglobin A1c is 7. Continue Levemir. Monitor Accu-Cheks and cover with sliding scale insulin. 6. Decubitus ulcer stage IV: Continue wound care, twice-daily dressing changes.. Wound care recommendations. Continue pressure relief measures including turning and positioning. Patient's family has declined a diverting colostomy. Wound culture growing Klebsiella. Antibiotics per infectious disease. Status post wide excision of sacral skin and biopsy of the cavity lining with debridement on 07/22/16. 7. Gastric ulcer, reflux esophagitis: EGD on 07/30/16 showed gastric ulcers. Appreciate GI recommendations. Continue PPI. H&H stable. 8. UTI pseudomonas aeruginosa treated with abx . Repeat Ucx 08/28/16 negative FEN: Continue Nepro tube feeds. Appreciate dietary recommendations. Continue free water flushes. Supplement potassium. Poor prognosis. DVT prophylaxis: SCDs. CM following for DC plan. Problem Qualifiers (1) DM (diabetes mellitus): Qualified Code: E11.9 - Type 2 diabetes mellitus without complications Nahomy Tatum MD Aug 29, 2016 12:09
--- NOTE | 2016-08-29 15:53 | HHI.PR ---
Subjective Remarks no change on o2 trach ok Objective Vital Signs Date Time Temp Pulse Resp B/P Pulse Ox O2 Delivery O2 Flow Rate FiO2 08/29/16 14:25 20 08/29/16 12:29 99.9 83 22 104/69 99 08/29/16 09:04 97 T-piece 6.00 35 08/29/16 09:04 97 T-piece 6.00 35 08/29/16 08:34 97.9 97 22 119/74 99 08/29/16 06:51 96 08/29/16 04:00 97.2 73 22 109/66 98 08/29/16 00:00 97.3 87 20 137/77 100 08/28/16 23:00 85 08/28/16 22:18 100 T-Piece 28 08/28/16 20:00 97.8 90 20 130/69 99 08/28/16 18:08 99 T-piece 6.00 28 I/O 08/28/16 08/28/16 08/28/16 08/29/16 08/29/16 08/29/16 07:00 15:00 23:00 07:00 15:00 23:00 Intake Total 0 ml 803 ml 1665 ml Output Total 600 ml 1600 ml 1100 ml Balance -600 ml -797 ml -1100 ml 1665 ml Intake Oral 0 ml IV Total 105 ml Tube Feeding 803 ml 960 ml Other 600 ml Output Urine Total 600 ml 1600 ml 1100 ml # Bowel Movements 1 2 1 Procedures 01/02/16 PEG placement 01/02/16 tracheostomy 07/22/2016 Wide excision of sacral skin wound, biopsy of the cavity lining and debridement. PEG tube replacement 07/29/16 Medications and IVs GENERAL: SKIN: Warm and dry. HEAD: Atraumatic. Normocephalic. EYES: Pupils equal and round. No scleral icterus. No injection or drainage. ENT: No nasal bleeding or discharge. Mucous membranes pink and moist. NECK: Trachea midline. No JVD. CARDIOVASCULAR: Regular rate and rhythm. RESPIRATORY: No accessory muscle use. Clear to auscultation. Breath sounds equal bilaterally. GASTROINTESTINAL: Abdomen soft, non-tender, nondistended. Hepatic and splenic margins not palpable. MUSCULOSKELETAL: Extremities without clubbing, cyanosis, or edema. No obvious deformities. NEUROLOGICAL: Awake and alert. No obvious cranial nerve deficits. Motor grossly within normal limits. Five out of 5 muscle strength in the arms and legs. Normal speech. PSYCHIATRIC: Appropriate mood and affect; insight and judgment normal. Assessment and Plan Assessment and Plan respiratory failure CVA S/P TRACHEOSTOMY PLAN O2 NEEDED PULM. TOILET Brandon Taylor MD Aug 29, 2016 15:53
[2016-08-29] MEDS: PARoxetine HCL SUSP 20 MG/10 ML UDC PEG SCH (18:16)
[2016-08-29] MEDS: INSULIN DETEMIR 100 UNITS/ML VIAL SQ SCH (20:43)
[2016-08-30] VITALS (12 sets, daily range): BP systolic 103–147; BP diastolic 68–82; PULSE 82–91; RESP 18–20; TEMP 97–98.1; O2SAT 97–100
[2016-08-30] MEDS: FREE WATER TUBE SCH ×6 (03:52→23:04)
[2016-08-30] MEDS: ACETAMINOPHEN/HYDROcodone 325 MG/5 MG TAB PEG SCH ×4 (05:49→23:04)
[2016-08-30] MEDS: AMOXICILLIN (TRIHYDRATE) 500 MG CAP PO SCH ×3 (05:49→21:02)
[2016-08-30] MEDS: HEPARIN SODIUM - SQ 10,000 UNITS/ML VIAL SQ SCH ×3 (05:49→23:04)
[2016-08-30] MEDS: ACETIC ACID 0.25% SOLN 1000 ML IRR BTL IRRIGATION SCH ×3 (05:57→21:08)
[2016-08-30] MEDS: INSULIN ASPART SUPPLEMENTAL SCALE SQ SCH (06:20)
[2016-08-30] MEDS: levETIRAcetam 500 MG/5 ML UDC TUBE SCH ×2 (07:28→21:02)
[2016-08-30] MEDS: CEFEPIME INJ 1,000 MG in SODIUM CHLORIDE 0.9% INJ 100 ML IV SCH ×3 (07:29→23:03)
[2016-08-30] MEDS: POTASSIUM CHLORIDE 25 MEQ EFFERVESCENT TAB TUBE SCH (07:29)
[2016-08-30] MEDS: LACTOBACILLUS ACIDOPHILUS TAB PEG SCH ×3 (07:29→18:24)
[2016-08-30] MEDS: ASPIRIN 325 MG TAB TUBE SCH (07:29)
[2016-08-30] MEDS: METOPROLOL TARTRATE 50 MG TAB PO SCH ×2 (07:29→21:00)
[2016-08-30] MEDS: DILTIAZEM HCL 30 MG TAB PEG SCH ×4 (07:30→21:00)
[2016-08-30] MEDS: NYSTATIN 100,000 U/GM PWD 15 GM BTL TOPICAL SCH ×2 (07:48→21:04)
[2016-08-30] MEDS: ARTIFICIAL TEARS OPTH OINT 3.5 APPLIC/3.5 GM TUBO EACH EYE SCH ×2 (07:50→21:05)
[2016-08-30] MEDS: BACITRACIN TOP OINT 15 GM TUBE TOP SCH ×2 (07:50→21:04)
[2016-08-30] MEDS: SODIUM CHLORIDE 0.65% NASAL SPRAY 45 ML BTL NASAL SCH ×2 (07:50→21:00)
[2016-08-30] MEDS: PANTOPRAZOLE SODIUM 40 MG VIAL IV PUSH SCH ×2 (09:05→21:02)
--- NOTE | 2016-08-30 12:55 | HHI.PR ---
Subjective Remarks The patient was resting comfortably in bed. He was awake and alert. Family was at the bedside. They are concerned he was straining earlier secondary to constipation. Objective Vitals Vital Signs Date Time Temp Pulse Resp B/P Pulse Ox O2 Delivery O2 Flow Rate FiO2 08/30/16 12:00 97.0 85 20 147/82 100 08/30/16 11:16 97 T-piece 6.00 28 08/30/16 11:16 97 T-piece 6.00 28 08/30/16 09:31 T-Piece 6.00 28 08/30/16 08:00 98.1 89 20 110/74 100 08/30/16 05:34 97.0 87 18 123/77 100 08/30/16 00:34 97.1 82 18 109/68 100 08/29/16 21:24 97.2 91 18 115/76 98 08/29/16 20:00 88 08/29/16 19:41 T-Piece 6.00 28 08/29/16 16:10 96.9 84 20 106/65 96 08/29/16 14:25 20 08/29/16 13:00 96 T-Piece 28 I/O 08/29/16 08/29/16 08/29/16 08/30/16 08/30/16 08/30/16 07:00 15:00 23:00 07:00 15:00 23:00 Intake Total 1665 ml Output Total 1100 ml 525 ml 1450 ml Balance -1100 ml 1665 ml -525 ml -1450 ml IV Total 105 ml Tube Feeding 960 ml Other 600 ml Output Urine Total 1100 ml 525 ml 1450 ml # Bowel Movements 1 2 2 Imaging Last Impressions Chest X-Ray 08/23/16 0000 Signed Impressions: Service Date/Time: Tuesday, August 23, 2016 16:06 - CONCLUSION: Minimal basilar right lung opacity likely representing atelectasis. Kwasi James MD Tube Change 08/14/16 0000 Signed Impressions: Service Date/Time: Sunday, August 14, 2016 15:11 - CONCLUSION: Uncomplicated gastrojejunostomy tube exchange as above. Moises Ramírez MD Abdomen/Pelvis CT 04/12/16 0000 Signed Impressions: Service Date/Time: Tuesday, April 12, 2016 20:52 - CONCLUSION: 1. 6.4 cm necrotic mass or abscess in the soft tissues posteriorly just below the sacrum associated with some bony destructive change of the lower most sacrum and coccyx with inflammatory changes extending into the ischiorectal fossa and into the presacral retroperitoneum predominantly on the left side. There is associated fairly marked mural thickening of the anal verge and rectum. 2. There is gastrostomy and Arevalo catheter present. Stable abdominal aortic aneurysm. Durga Dotson MD Head Magnetic Resonance Angiography 03/05/16 0000 Signed Impressions: Service Date/Time: Saturday, March 05, 2016 09:26 - CONCLUSION: Persistent high-grade subtotal occlusive stenotic lesions in the distal right vertebral artery and proximal basilar artery with significant improvement in flow and recanalization following initial presentation of thrombosis. Stable interstitial circulation without significant stenosis. 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 There is decreasing restricted diffusion and increasing loss of volume characteristic of a subacute to chronic infarct. No evidence of acute infarct, acute hemorrhage mass or edema. Ernesto Kulkarni MD Head CT 01/16/16 0000 Signed Impressions: Service Date/Time: Saturday, January 16, 2016 10:51 - CONCLUSION: No extensive low density in the brainstem colin more prominent in the right the left extending into the right middle cerebellar peduncle consistent with brainstem infarct nonhemorrhagic acute Wellington West MD Abdomen X-Ray 01/14/16 0000 Signed Impressions: Service Date/Time: Thursday, January 14, 2016 10:19 - CONCLUSION: Moderate stool; otherwise, negative. 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 No evidence of carotid stenosis. Glen Zamora MD Head/Brain Mag Res Venography 12/22/15 0000 Signed Impressions: Service Date/Time: Tuesday, December 22, 2015 09:22 - CONCLUSION: Normal MRV. Jonel Jones Jr., MD Objective Remarks GENERAL: Resting comfortably. SKIN: Warm and dry. HEAD: Normocephalic. EYES: No scleral icterus. No injection or drainage. NECK: trach in place. CARDIOVASCULAR: Regular rate and rhythm without murmurs, gallops, or rubs. RESPIRATORY: Breath sounds equal bilaterally. No accessory muscle use. GASTROINTESTINAL: Abdomen soft, non-tender, nondistended. PEG tube in place. EXTREMITIES: No edema. NEUROLOGICAL: Awake, alert. Does follow some commands. Procedures 01/02/16 PEG placement 01/02/16 tracheostomy 07/22/2016 Wide excision of sacral skin wound, biopsy of the cavity lining and debridement. PEG tube replacement 07/29/16 Medications and IVs Current Medications Medications (Trade) Dose Ordered Sig/Ujnior Route Start Time Stop Time Status Last Admin (NS Flush) 2 ml UNSCH PRN IVF 12/21/15 06:00 08/26/16 00:20 (Keppra Liq) 500 mg Q12HR TUBE 12/27/15 21:00 08/30/16 07:28 (Tylenol 650 Mg/ 20 ml Liq) 650 mg Q6H PRN TUBE 12/30/15 15:15 08/23/16 12:52 (Mycostatin Powder) 1 applic Q12HR TOPICAL 01/08/16 21:00 08/30/16 07:48 (Pill Splitter) 1 ea UNSCH PRN OTHER 01/14/16 08:30 (Acetic Acid 0.25% Irr Btl) 10 ml Q8HR IRRIGATION 02/05/16 16:00 08/30/16 05:57 (Ativan Inj) 0.5 mg Q4H PRN IV PUSH 03/07/16 23:00 (Paxil Liq) 20 mg DAILY@1900 PEG 03/12/16 19:00 08/29/16 18:16 (Levemir Inj) 35 units HS SQ 03/24/16 21:00 08/29/16 20:43 (Lacrilube Opht Oint) 1 applic Q12HR EACH EYE 04/10/16 11:00 08/30/16 07:50 (Levsin) 0.25 mg Q4H PRN G-TUBE 04/11/16 10:30 08/11/16 08:38 (Zofran Inj) 4 mg Q6HR PRN IV PUSH 04/14/16 19:45 08/10/16 10:16 (Free Water) 200 ml Q4HR TUBE 04/16/16 12:00 08/30/16 12:00 ([place] 5-325 Mg) 1 tab Q6HR PEG 04/18/16 18:00 08/30/16 12:36 (D50w (Vial) Inj) 25 ml UNSCH PRN IV 04/20/16 12:00 (Glucagon Inj) 1 mg UNSCH PRN IM/SQ 04/20/16 12:00 (K-Lyte Cl Eff) 25 meq DAILY TUBE 05/28/16 09:00 08/30/16 07:29 (Aspirin) 325 mg DAILY TUBE 05/27/16 11:40 08/30/16 07:29 (Colace Liq) 100 mg DAILY PRN PO 05/27/16 11:45 08/16/16 21:09 ([place] 5-325 Mg) 1 tab Q6H PRN TUBE 06/03/16 03:00 08/02/16 15:11 (Lactinex) 1 tab TID PEG 06/07/16 13:00 08/30/16 12:36 (Heparin Inj) 5,000 units Q8HR SQ 06/11/16 14:00 08/30/16 05:49 (Baciguent Oint) 1 applic BID TOP 07/20/16 10:00 08/30/16 07:50 (Protonix Inj) 40 mg Q12H IV PUSH 07/30/16 10:15 08/30/16 09:05 ([place]) 1 spray BID NASAL 08/01/16 21:00 08/30/16 07:50 (Cardizem) 30 mg QID PEG 08/16/16 13:00 08/30/16 12:36 Amoxicillin 500 mg 500 mg Q8HR PO 08/22/16 22:00 08/30/16 05:49 (Maxipime Inj/NS Inj) 100 ml @ 200 mls/hr Q8H IV 08/23/16 16:00 08/30/16 07:29 (Lopressor) 75 mg BID PO 08/23/16 21:00 08/30/16 07:29 Date of Insertion: Aug 03, 2016 A/P Problem List: (1) CVA (cerebral vascular accident) ICD Code: I63.9 Status: Acute (2) A-fib ICD Code: I48.91 Status: Chronic (3) DM (diabetes mellitus) ICD Code: E11.9 Status: Chronic Assessment and Plan 1. 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 Patient is nonverbal. Continue Keppra for seizure prophylaxis. PT/OT signed off as patient is unable to participate. 2. Chronic respiratory failure: Secondary to CVA. Status post tracheostomy. Continue pulmonary toilet and bronchodilators as needed. Continue trach care, suctioning. Levsin as needed. On 28% FiO2 08/30. 3. Atrial fibrillation: Continue rate control with Cardizem and metoprolol. Echocardiogram in November 2015 shows preserved ejection fraction. Coumadin discontinued secondary to bleeding. Continue aspirin and prophylactic heparin dose. HR well controlled 08/30. 4. History of non-Hodgkin's lymphoma: Status post brain biopsy on December 13 by neurosurgery. Pathology consistent with acute infarct without evidence of lymphoma. Oncology signed off. 5. Diabetes mellitus: Hemoglobin A1c is 7. Continue Levemir. Monitor Accu-Cheks and cover with sliding scale insulin. Glucose well controlled 08/30. 6. Decubitus ulcer stage IV: Continue wound care, twice-daily dressing changes. Wound care recommendations. Continue pressure relief measures including turning and positioning. Patient's family has declined a diverting colostomy. Wound culture growing Klebsiella. Antibiotics per infectious disease. Status post wide excision of sacral skin and biopsy of the cavity lining with debridement on 07/22/16. 7. Gastric ulcer, reflux esophagitis: EGD on 07/30/16 showed gastric ulcers. Appreciate GI recommendations. Continue PPI. H&H stable. 8. UTI pseudomonas aeruginosa treated with abx . Repeat Ucx 08/28/16 negative. 9. Constipation: The pt has been noted to be straining when having bowel movements. Increase bowel regimen. FEN: Continue Nepro tube feeds. Appreciate dietary recommendations. Continue free water flushes. Supplement potassium. DVT prophylaxis: SCDs. Discharge Planning Awaiting clinical improvement. Problem Qualifiers (1) DM (diabetes mellitus): Qualified Code: E11.9 - Type 2 diabetes mellitus without complications Gerald Calhoun DO Aug 30, 2016 12:55
[2016-08-30] MEDS: SENNOSIDES 8.6 MG TAB PO SCH (15:15)
[2016-08-30] MEDS: PARoxetine HCL SUSP 20 MG/10 ML UDC PEG SCH (18:24)
[2016-08-30] MEDS: DOCUSATE SODIUM 100 MG/10 ML UDC PO SCH (21:01)
[2016-08-30] MEDS: INSULIN DETEMIR 100 UNITS/ML VIAL SQ SCH (21:01)
[2016-08-31] VITALS (11 sets, daily range): BP systolic 97–118; BP diastolic 64–77; PULSE 80–100; RESP 18–20; TEMP 96.3–97.8; O2SAT 97–99
[2016-08-31] MEDS: FREE WATER TUBE SCH ×5 (04:00→20:00)
[2016-08-31] MEDS: ACETIC ACID 0.25% SOLN 1000 ML IRR BTL IRRIGATION SCH ×3 (04:50→21:46)
[2016-08-31] MEDS: HEPARIN SODIUM - SQ 10,000 UNITS/ML VIAL SQ SCH ×3 (05:02→21:44)
[2016-08-31] MEDS: AMOXICILLIN (TRIHYDRATE) 500 MG CAP PO SCH ×3 (05:02→21:44)
[2016-08-31] MEDS: HYOSCYAMINE 0.125 MG TAB G-TUBE PRN (05:02)
[2016-08-31] MEDS: ACETAMINOPHEN/HYDROcodone 325 MG/5 MG TAB PEG SCH ×4 (05:02→18:00)
[2016-08-31] MEDS: INSULIN ASPART SUPPLEMENTAL SCALE SQ SCH (07:00)
[2016-08-31] MEDS: CEFEPIME INJ 1,000 MG in SODIUM CHLORIDE 0.9% INJ 100 ML IV SCH ×2 (08:53→17:58)
[2016-08-31] MEDS: ARTIFICIAL TEARS OPTH OINT 3.5 APPLIC/3.5 GM TUBO EACH EYE SCH ×2 (08:54→21:00)
[2016-08-31] MEDS: DOCUSATE SODIUM 100 MG/10 ML UDC PO SCH ×2 (08:55→21:44)
[2016-08-31] MEDS: SODIUM CHLORIDE 0.65% NASAL SPRAY 45 ML BTL NASAL SCH ×2 (08:55→21:00)
[2016-08-31] MEDS: DILTIAZEM HCL 30 MG TAB PEG SCH ×4 (08:55→21:44)
[2016-08-31] MEDS: LACTOBACILLUS ACIDOPHILUS TAB PEG SCH ×3 (08:55→17:59)
[2016-08-31] MEDS: SENNOSIDES 8.6 MG TAB PO SCH (08:57)
[2016-08-31] MEDS: METOPROLOL TARTRATE 50 MG TAB PO SCH ×2 (08:57→21:44)
[2016-08-31] MEDS: BACITRACIN TOP OINT 15 GM TUBE TOP SCH ×2 (08:57→21:46)
[2016-08-31] MEDS: ASPIRIN 325 MG TAB TUBE SCH (08:58)
[2016-08-31] MEDS: levETIRAcetam 500 MG/5 ML UDC TUBE SCH ×2 (08:58→21:43)
[2016-08-31] MEDS: NYSTATIN 100,000 U/GM PWD 15 GM BTL TOPICAL SCH ×2 (08:58→21:46)
[2016-08-31] MEDS: POTASSIUM CHLORIDE 25 MEQ EFFERVESCENT TAB TUBE SCH (08:58)
[2016-08-31] MEDS: PANTOPRAZOLE SODIUM 40 MG VIAL IV PUSH SCH ×2 (12:58→21:45)
--- NOTE | 2016-08-31 15:47 | HHI.PR ---
Subjective Remarks The patient's family was concerned that the patient was having straining with bowel movements frequently. They said he would tighten and straining until the bowel movement was complete. They mentioned that his stomach got tight. The patient appeared comfortable. Objective Vitals Vital Signs Date Time Temp Pulse Resp B/P Pulse Ox O2 Delivery O2 Flow Rate FiO2 08/31/16 12:13 97.6 81 20 97/67 99 08/31/16 10:27 98 T-piece 28 08/31/16 10:27 98 T-piece 28 08/31/16 08:45 92 08/31/16 08:30 97.6 100 20 112/70 98 08/31/16 07:30 T-Piece 6.00 28 08/31/16 04:26 96.3 97 18 118/77 98 08/31/16 01:25 97 T-piece 6.00 28 08/31/16 01:08 97.4 87 18 109/70 97 08/31/16 00:04 18 08/30/16 21:00 98 T-Piece 28 08/30/16 20:59 90 103/68 08/30/16 20:18 97.8 91 18 116/74 98 08/30/16 20:00 90 08/30/16 18:35 98 T-piece 6.00 28 08/30/16 18:34 98 T-piece 6.00 28 08/30/16 16:00 97.5 87 18 118/73 98 I/O 08/30/16 08/30/16 08/30/16 08/31/16 08/31/16 08/31/16 07:00 15:00 23:00 07:00 15:00 23:00 Intake Total 0 ml Output Total 1450 ml 750 ml 1150 ml 1250 ml Balance -1450 ml -750 ml -1150 ml -1250 ml Intake Oral 0 ml Output Urine Total 1450 ml 750 ml 1150 ml 1250 ml # Bowel Movements 2 0 1 Imaging Last Impressions Chest X-Ray 08/23/16 0000 Signed Impressions: Service Date/Time: Tuesday, August 23, 2016 16:06 - CONCLUSION: Minimal basilar right lung opacity likely representing atelectasis. Kwasi James MD Tube Change 08/14/16 0000 Signed Impressions: Service Date/Time: Sunday, August 14, 2016 15:11 - CONCLUSION: Uncomplicated gastrojejunostomy tube exchange as above. Moises Ramírez MD Abdomen/Pelvis CT 04/12/16 0000 Signed Impressions: Service Date/Time: Tuesday, April 12, 2016 20:52 - CONCLUSION: 1. 6.4 cm necrotic mass or abscess in the soft tissues posteriorly just below the sacrum associated with some bony destructive change of the lower most sacrum and coccyx with inflammatory changes extending into the ischiorectal fossa and into the presacral retroperitoneum predominantly on the left side. There is associated fairly marked mural thickening of the anal verge and rectum. 2. There is gastrostomy and Arevalo catheter present. Stable abdominal aortic aneurysm. Durga Dotson MD Head Magnetic Resonance Angiography 03/05/16 0000 Signed Impressions: Service Date/Time: Saturday, March 05, 2016 09:26 - CONCLUSION: Persistent high-grade subtotal occlusive stenotic lesions in the distal right vertebral artery and proximal basilar artery with significant improvement in flow and recanalization following initial presentation of thrombosis. Stable interstitial circulation without significant stenosis. 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 There is decreasing restricted diffusion and increasing loss of volume characteristic of a subacute to chronic infarct. No evidence of acute infarct, acute hemorrhage mass or edema. Ernesto Kulkarni MD Head CT 01/16/16 0000 Signed Impressions: Service Date/Time: Saturday, January 16, 2016 10:51 - CONCLUSION: No extensive low density in the brainstem colin more prominent in the right the left extending into the right middle cerebellar peduncle consistent with brainstem infarct nonhemorrhagic acute Wellington West MD Abdomen X-Ray 01/14/16 0000 Signed Impressions: Service Date/Time: Thursday, January 14, 2016 10:19 - CONCLUSION: Moderate stool; otherwise, negative. 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 No evidence of carotid stenosis. Glen Zamora MD Head/Brain Mag Res Venography 12/22/15 0000 Signed Impressions: Service Date/Time: Tuesday, December 22, 2015 09:22 - CONCLUSION: Normal MRV. Jonel Jones Jr., MD Objective Remarks GENERAL: Resting comfortably. SKIN: Warm and dry. HEAD: Normocephalic. EYES: No scleral icterus. No injection or drainage. NECK: trach in place. CARDIOVASCULAR: Regular rate and rhythm without murmurs, gallops, or rubs. RESPIRATORY: Breath sounds equal bilaterally. No accessory muscle use. GASTROINTESTINAL: Abdomen soft, non-tender, nondistended. PEG tube in place. EXTREMITIES: No edema. NEUROLOGICAL: Awake, alert. Does follow some commands. Procedures 01/02/16 PEG placement 01/02/16 tracheostomy 07/22/2016 Wide excision of sacral skin wound, biopsy of the cavity lining and debridement. PEG tube replacement 07/29/16 Medications and IVs Current Medications Medications (Trade) Dose Ordered Sig/Junior Route Start Time Stop Time Status Last Admin (NS Flush) 2 ml UNSCH PRN IVF 12/21/15 06:00 08/26/16 00:20 (Keppra Liq) 500 mg Q12HR TUBE 12/27/15 21:00 08/31/16 08:58 (Tylenol 650 Mg/ 20 ml Liq) 650 mg Q6H PRN TUBE 12/30/15 15:15 08/23/16 12:52 (Mycostatin Powder) 1 applic Q12HR TOPICAL 01/08/16 21:00 08/31/16 08:58 (Pill Splitter) 1 ea UNSCH PRN OTHER 01/14/16 08:30 (Acetic Acid 0.25% Irr Btl) 10 ml Q8HR IRRIGATION 02/05/16 16:00 08/31/16 12:59 (Ativan Inj) 0.5 mg Q4H PRN IV PUSH 03/07/16 23:00 (Paxil Liq) 20 mg DAILY@1900 PEG 03/12/16 19:00 08/30/16 18:24 (Levemir Inj) 35 units HS SQ 03/24/16 21:00 08/30/16 21:01 (Lacrilube Opht Oint) 1 applic Q12HR EACH EYE 04/10/16 11:00 08/31/16 08:54 (Levsin) 0.25 mg Q4H PRN G-TUBE 04/11/16 10:30 08/31/16 05:02 (Zofran Inj) 4 mg Q6HR PRN IV PUSH 04/14/16 19:45 08/10/16 10:16 (Free Water) 200 ml Q4HR TUBE 04/16/16 12:00 08/31/16 12:00 ([place] 5-325 Mg) 1 tab Q6HR PEG 04/18/16 18:00 08/31/16 13:56 (D50w (Vial) Inj) 25 ml UNSCH PRN IV 04/20/16 12:00 (Glucagon Inj) 1 mg UNSCH PRN IM/SQ 04/20/16 12:00 (K-Lyte Cl Eff) 25 meq DAILY TUBE 05/28/16 09:00 08/31/16 08:58 (Aspirin) 325 mg DAILY TUBE 05/27/16 11:40 08/31/16 08:58 ([place] 5-325 Mg) 1 tab Q6H PRN TUBE 06/03/16 03:00 08/02/16 15:11 (Lactinex) 1 tab TID PEG 06/07/16 13:00 08/31/16 12:56 (Heparin Inj) 5,000 units Q8HR SQ 06/11/16 14:00 08/31/16 12:54 (Baciguent Oint) 1 applic BID TOP 07/20/16 10:00 08/31/16 08:57 (Protonix Inj) 40 mg Q12H IV PUSH 07/30/16 10:15 08/31/16 12:58 ([place]) 1 spray BID NASAL 08/01/16 21:00 08/31/16 08:55 (Cardizem) 30 mg QID PEG 08/16/16 13:00 08/31/16 08:55 Amoxicillin 500 mg 500 mg Q8HR PO 08/22/16 22:00 08/31/16 12:56 (Maxipime Inj/NS Inj) 100 ml @ 200 mls/hr Q8H IV 08/23/16 16:00 08/31/16 08:53 (Lopressor) 75 mg BID PO 08/23/16 21:00 08/31/16 08:57 (Colace Liq) 100 mg BID PO 08/30/16 21:00 08/31/16 08:55 (Senokot) 17.2 mg DAILY PO 08/30/16 14:00 08/31/16 08:57 Date of Insertion: Aug 03, 2016 A/P Problem List: (1) CVA (cerebral vascular accident) ICD Code: I63.9 Status: Acute (2) A-fib ICD Code: I48.91 Status: Chronic (3) DM (diabetes mellitus) ICD Code: E11.9 Status: Chronic Assessment and Plan 1. 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 Patient is nonverbal. Continue Keppra for seizure prophylaxis. PT/OT signed off as patient is unable to participate. 2. Chronic respiratory failure: Secondary to CVA. Status post tracheostomy. Continue pulmonary toilet and bronchodilators as needed. Continue trach care, suctioning. Levsin as needed. On 28% FiO2 08/31. 3. Atrial fibrillation: Continue rate control with Cardizem and metoprolol. Echocardiogram in November 2015 shows preserved ejection fraction. Coumadin discontinued secondary to bleeding. Continue aspirin and prophylactic heparin dose. HR well controlled 08/30. 4. History of non-Hodgkin's lymphoma: Status post brain biopsy on December 13 by neurosurgery. Pathology consistent with acute infarct without evidence of lymphoma. Oncology signed off. 5. Diabetes mellitus: Hemoglobin A1c is 7. Continue Levemir. Monitor Accu-Cheks and cover with sliding scale insulin. Glucose well controlled 08/31. 6. Decubitus ulcer stage IV: Continue wound care, twice-daily dressing changes. Wound care recommendations. Continue pressure relief measures including turning and positioning. Patient's family has declined a diverting colostomy. Wound culture growing Klebsiella. Antibiotics per infectious disease. Status post wide excision of sacral skin and biopsy of the cavity lining with debridement on 07/22/16. 7. Gastric ulcer, reflux esophagitis: EGD on 07/30/16 showed gastric ulcers. Appreciate GI recommendations. Continue PPI. H&H stable. 8. UTI pseudomonas aeruginosa treated with abx . Repeat Ucx 08/28/16 negative. 9. Constipation: The pt has been noted to be straining when having bowel movements. Increase bowel regimen. Check a KUB 08/31. FEN: Continue Nepro tube feeds. Appreciate dietary recommendations. Continue free water flushes. Supplement potassium. DVT prophylaxis: SCDs. Discharge Planning Awaiting clinical improvement. Problem Qualifiers (1) DM (diabetes mellitus): Qualified Code: E11.9 - Type 2 diabetes mellitus without complications Gerald Calhoun DO Aug 31, 2016 15:46
--- NOTE | 2016-08-31 17:29 | RADRPT ---
EXAM DATE/TIME: 08/31/2016 16:36 [facility] COMPARISON: No previous studies available for comparison. INDICATIONS : Abdominal Distention. MEDICAL HISTORY : A-Fib, HTN, Non hodgkins lymphoma, Chemotherapy, Diabetes, AMS SURGICAL HISTORY : Right occipital juan [place]ose hole brain biopsy, Left arm surgery, GJ tube placement ENCOUNTER: Initial ACUITY: 1 day PAIN SCORE: Non-responsive. LOCATION: Abdomen. FINDINGS: Feeding tube tip overlies jejunum. Bowel gas pattern nonspecific without obstruction or free air. Mil d constipation. CONCLUSION: 1. No acute findings. Mild constipation. Durga Dotson MD on August 31, 2016 at 17:27 Board Certified Radiologist. This report was verified electronically.
[2016-08-31] MEDS: PARoxetine HCL SUSP 20 MG/10 ML UDC PEG SCH (18:00)
[2016-08-31] MEDS: SODIUM CHLORIDE 0.9% FLUSH 5 ML FLUSH IVF PRN (21:45)
[2016-08-31] MEDS: INSULIN DETEMIR 100 UNITS/ML VIAL SQ SCH (21:45)
[2016-09-01] VITALS (9 sets, daily range): BP systolic 95–123; BP diastolic 60–77; PULSE 69–86; RESP 16–22; TEMP 95.7–98.1; O2SAT 98–100
[2016-09-01] MEDS: ACETAMINOPHEN/HYDROcodone 325 MG/5 MG TAB PEG SCH ×4 (00:03→18:10)
[2016-09-01] MEDS: CEFEPIME INJ 1,000 MG in SODIUM CHLORIDE 0.9% INJ 100 ML IV SCH ×3 (00:04→16:27)
[2016-09-01] MEDS: FREE WATER TUBE SCH ×6 (04:00→20:00)
[2016-09-01] MEDS: HEPARIN SODIUM - SQ 10,000 UNITS/ML VIAL SQ SCH ×3 (06:30→22:00)
[2016-09-01] MEDS: AMOXICILLIN (TRIHYDRATE) 500 MG CAP PO SCH ×3 (06:31→22:02)
[2016-09-01] MEDS: INSULIN ASPART SUPPLEMENTAL SCALE SQ SCH (06:31)
[2016-09-01] MEDS: ACETIC ACID 0.25% SOLN 1000 ML IRR BTL IRRIGATION SCH ×3 (06:31→22:00)
[2016-09-01] MEDS: DOCUSATE SODIUM 100 MG/10 ML UDC PO SCH ×2 (08:01→21:30)
[2016-09-01] MEDS: levETIRAcetam 500 MG/5 ML UDC TUBE SCH ×2 (08:01→21:33)
[2016-09-01] MEDS: DILTIAZEM HCL 30 MG TAB PEG SCH ×5 (08:02→21:00)
[2016-09-01] MEDS: POTASSIUM CHLORIDE 25 MEQ EFFERVESCENT TAB TUBE SCH (08:02)
[2016-09-01] MEDS: LACTOBACILLUS ACIDOPHILUS TAB PEG SCH ×3 (08:02→18:10)
[2016-09-01] MEDS: ASPIRIN 325 MG TAB TUBE SCH (08:02)
[2016-09-01] MEDS: SENNOSIDES 8.6 MG TAB PO SCH (08:03)
[2016-09-01] MEDS: SODIUM CHLORIDE 0.9% FLUSH 5 ML FLUSH IVF PRN (08:03)
[2016-09-01] MEDS: METOPROLOL TARTRATE 50 MG TAB PO SCH ×2 (08:04→21:00)
[2016-09-01] MEDS: BACITRACIN TOP OINT 15 GM TUBE TOP SCH ×2 (08:05→21:35)
[2016-09-01] MEDS: NYSTATIN 100,000 U/GM PWD 15 GM BTL TOPICAL SCH ×2 (08:05→21:33)
[2016-09-01] MEDS: SODIUM CHLORIDE 0.65% NASAL SPRAY 45 ML BTL NASAL SCH ×2 (08:07→21:00)
[2016-09-01] MEDS: ARTIFICIAL TEARS OPTH OINT 3.5 APPLIC/3.5 GM TUBO EACH EYE SCH ×2 (08:08→21:31)
[2016-09-01] MEDS: PANTOPRAZOLE SODIUM 40 MG VIAL IV PUSH SCH (08:09)
--- NOTE | 2016-09-01 16:02 | HHI.PR ---
Subjective Remarks The patient was resting comfortably. Family was at the bedside and wondering about changing the diltiazem regimen. No other acute complaints. Discussed with nursing. Objective Vitals Vital Signs Date Time Temp Pulse Resp B/P Pulse Ox O2 Delivery O2 Flow Rate FiO2 09/01/16 12:00 97.4 72 22 105/65 100 09/01/16 11:50 100 T-piece 6.00 28 09/01/16 08:15 85 09/01/16 08:15 99 T-Piece 6.00 28 09/01/16 08:10 95.7 73 16 113/60 99 09/01/16 04:46 98.1 86 18 110/77 98 09/01/16 01:03 20 09/01/16 00:57 97.9 77 18 114/74 100 09/01/16 00:57 T-Piece 6.00 28 08/31/16 22:24 99 T-piece 5.00 28 08/31/16 22:24 99 T-piece 5.00 28 08/31/16 20:58 97.8 85 18 115/69 99 08/31/16 20:58 T-Piece 6.00 28 08/31/16 20:00 90 08/31/16 16:08 97.4 80 20 108/64 98 I/O 08/31/16 08/31/16 08/31/16 09/01/16 09/01/16 09/01/16 07:00 15:00 23:00 07:00 15:00 23:00 Intake Total 0 ml 3351 ml 2260 ml 1866 ml Output Total 1150 ml 1250 ml 850 ml Balance -1150 ml -1250 ml 3351 ml 1410 ml 1866 ml Intake Oral 0 ml IV Total 94 ml 100 ml 120 ml Tube Feeding 2657 ml 960 ml 1326 ml Tube Irrigant 1200 ml 20 ml Other 600 ml 400 ml Output Urine Total 1150 ml 1250 ml 850 ml # Bowel Movements 0 1 Imaging Last Impressions Abdomen X-Ray 08/31/16 0000 Signed Impressions: Service Date/Time: Wednesday, August 31, 2016 16:36 - CONCLUSION: 1. No acute findings. Mild constipation. Durga Dotson MD Chest X-Ray 08/23/16 0000 Signed Impressions: Service Date/Time: Tuesday, August 23, 2016 16:06 - CONCLUSION: Minimal basilar right lung opacity likely representing atelectasis. Kwasi James MD Tube Change 08/14/16 0000 Signed Impressions: Service Date/Time: Sunday, August 14, 2016 15:11 - CONCLUSION: Uncomplicated gastrojejunostomy tube exchange as above. Moises Ramírez MD Abdomen/Pelvis CT 04/12/16 0000 Signed Impressions: Service Date/Time: Tuesday, April 12, 2016 20:52 - CONCLUSION: 1. 6.4 cm necrotic mass or abscess in the soft tissues posteriorly just below the sacrum associated with some bony destructive change of the lower most sacrum and coccyx with inflammatory changes extending into the ischiorectal fossa and into the presacral retroperitoneum predominantly on the left side. There is associated fairly marked mural thickening of the anal verge and rectum. 2. There is gastrostomy and Arevalo catheter present. Stable abdominal aortic aneurysm. Durga Dotson MD Head Magnetic Resonance Angiography 03/05/16 0000 Signed Impressions: Service Date/Time: Saturday, March 05, 2016 09:26 - CONCLUSION: Persistent high-grade subtotal occlusive stenotic lesions in the distal right vertebral artery and proximal basilar artery with significant improvement in flow and recanalization following initial presentation of thrombosis. Stable interstitial circulation without significant stenosis. 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 There is decreasing restricted diffusion and increasing loss of volume characteristic of a subacute to chronic infarct. No evidence of acute infarct, acute hemorrhage mass or edema. Ernesto Kulkarni MD Head CT 01/16/16 0000 Signed Impressions: Service Date/Time: Saturday, January 16, 2016 10:51 - CONCLUSION: No extensive low density in the brainstem colin more prominent in the right the left extending into the right middle cerebellar peduncle consistent with brainstem infarct nonhemorrhagic acute [place] MD Neck Magnetic Resonance Angiography 12/22/15 1445 Signed Impressions: Service Date/Time: Tuesday, December 22, 2015 09:22 - CONCLUSION: Variant origin of the left vertebral artery from the aortic arch. No evidence of carotid stenosis. Glen Zamora MD Head/Brain Mag Res Venography 12/22/15 0000 Signed Impressions: Service Date/Time: Tuesday, December 22, 2015 09:22 - CONCLUSION: Normal MRV. Jonel Jones Jr., MD Objective Remarks GENERAL: Resting comfortably. SKIN: Warm and dry. HEAD: Normocephalic. EYES: No scleral icterus. No injection or drainage. NECK: trach in place. CARDIOVASCULAR: Regular rate and rhythm without murmurs, gallops, or rubs. RESPIRATORY: Breath sounds equal bilaterally. No accessory muscle use. GASTROINTESTINAL: Abdomen soft, non-tender, nondistended. PEG tube in place. EXTREMITIES: No edema. NEUROLOGICAL: Awake, alert. Does follow some commands. Procedures 01/02/16 PEG placement 01/02/16 tracheostomy 07/22/2016 Wide excision of sacral skin wound, biopsy of the cavity lining and debridement. PEG tube replacement 07/29/16 Medications and IVs Current Medications Medications (Trade) Dose Ordered Sig/Junior Route Start Time Stop Time Status Last Admin (NS Flush) 2 ml UNSCH PRN IVF 12/21/15 06:00 09/01/16 08:03 (Keppra Liq) 500 mg Q12HR TUBE 12/27/15 21:00 09/01/16 08:01 (Tylenol 650 Mg/ 20 ml Liq) 650 mg Q6H PRN TUBE 12/30/15 15:15 08/23/16 12:52 (Mycostatin Powder) 1 applic Q12HR TOPICAL 01/08/16 21:00 09/01/16 08:05 (Pill Splitter) 1 ea UNSCH PRN OTHER 01/14/16 08:30 (Acetic Acid 0.25% Irr Btl) 10 ml Q8HR IRRIGATION 02/05/16 16:00 09/01/16 13:56 (Ativan Inj) 0.5 mg Q4H PRN IV PUSH 03/07/16 23:00 (Paxil Liq) 20 mg DAILY@1900 PEG 03/12/16 19:00 08/31/16 18:00 (Levemir Inj) 35 units HS SQ 03/24/16 21:00 08/31/16 21:45 (Lacrilube Opht Oint) 1 applic Q12HR EACH EYE 04/10/16 11:00 09/01/16 08:08 (Levsin) 0.25 mg Q4H PRN G-TUBE 04/11/16 10:30 08/31/16 05:02 (Zofran Inj) 4 mg Q6HR PRN IV PUSH 04/14/16 19:45 08/10/16 10:16 (Free Water) 200 ml Q4HR TUBE 04/16/16 12:00 09/01/16 12:00 ([place] 5-325 Mg) 1 tab Q6HR PEG 04/18/16 18:00 09/01/16 13:31 (D50w (Vial) Inj) 25 ml UNSCH PRN IV 04/20/16 12:00 (Glucagon Inj) 1 mg UNSCH PRN IM/SQ 04/20/16 12:00 (K-Lyte Cl Eff) 25 meq DAILY TUBE 05/28/16 09:00 09/01/16 08:02 (Aspirin) 325 mg DAILY TUBE 05/27/16 11:40 09/01/16 08:02 ([place] 5-325 Mg) 1 tab Q6H PRN TUBE 06/03/16 03:00 08/02/16 15:11 (Lactinex) 1 tab TID PEG 06/07/16 13:00 09/01/16 13:31 (Heparin Inj) 5,000 units Q8HR SQ 06/11/16 14:00 09/01/16 13:32 (Baciguent Oint) 1 applic BID TOP 07/20/16 10:00 09/01/16 08:05 (Protonix Inj) 40 mg Q12H IV PUSH 07/30/16 10:15 09/01/16 08:09 ([place]) 1 spray BID NASAL 08/01/16 21:00 09/01/16 08:07 (Cardizem) 30 mg QID PEG 08/16/16 13:00 09/01/16 08:02 Amoxicillin 500 mg 500 mg Q8HR PO 08/22/16 22:00 09/01/16 13:31 (Maxipime Inj/NS Inj) 100 ml @ 200 mls/hr Q8H IV 08/23/16 16:00 09/01/16 08:01 (Lopressor) 75 mg BID PO 08/23/16 21:00 09/01/16 08:04 (Colace Liq) 100 mg BID PO 08/30/16 21:00 09/01/16 08:01 (Senokot) 17.2 mg DAILY PO 08/30/16 14:00 09/01/16 08:03 Date of Insertion: Aug 03, 2016 A/P Problem List: (1) CVA (cerebral vascular accident) ICD Code: I63.9 Status: Acute (2) A-fib ICD Code: I48.91 Status: Chronic (3) DM (diabetes mellitus) ICD Code: E11.9 Status: Chronic Assessment and Plan 1. 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 Patient is nonverbal. Continue Keppra for seizure prophylaxis. PT/OT signed off as patient is unable to participate. 2. Chronic respiratory failure: Secondary to CVA. Status post tracheostomy. Continue pulmonary toilet and bronchodilators as needed. Continue trach care, suctioning. Levsin as needed. On 28% FiO2 09/01. 3. Atrial fibrillation: Continue rate control with Cardizem and metoprolol. Echocardiogram in November 2015 shows preserved ejection fraction. Coumadin discontinued secondary to bleeding. Continue aspirin and prophylactic heparin dose. HR well controlled 09/01. 4. History of non-Hodgkin's lymphoma: Status post brain biopsy on December 13 by neurosurgery. Pathology consistent with acute infarct without evidence of lymphoma. Oncology signed off. 5. Diabetes mellitus: Hemoglobin A1c is 7. Continue Levemir. Monitor Accu-Cheks and cover with sliding scale insulin. Glucose well controlled 09/01. 6. Decubitus ulcer stage IV: Continue wound care, twice-daily dressing changes. Wound care recommendations. Continue pressure relief measures including turning and positioning. Patient's family has declined a diverting colostomy. Wound culture growing Klebsiella. Antibiotics per infectious disease. Status post wide excision of sacral skin and biopsy of the cavity lining with debridement on 07/22/16. 7. Gastric ulcer, reflux esophagitis: EGD on 07/30/16 showed gastric ulcers. Appreciate GI recommendations. Continue PPI. H&H stable. 8. UTI pseudomonas aeruginosa treated with abx . Repeat Ucx 08/28/16 negative. 9. Constipation: The pt has been noted to be straining when having bowel movements. Increase bowel regimen. KUB with mild constipation 08/31. FEN: Continue Nepro tube feeds. Appreciate dietary recommendations. Continue free water flushes. Supplement potassium. DVT prophylaxis: SCDs. Discharge Planning Awaiting clinical improvement. Problem Qualifiers (1) DM (diabetes mellitus): Qualified Code: E11.9 - Type 2 diabetes mellitus without complications Gerald Calhoun DO Sep 01, 2016 16:01
[2016-09-01] MEDS: PARoxetine HCL SUSP 20 MG/10 ML UDC PEG SCH (18:10)
[2016-09-01] MEDS: INSULIN DETEMIR 100 UNITS/ML VIAL SQ SCH (21:34)
[2016-09-02] VITALS: BP 111/59; PULSE 86; PULSE 87; RESP 18; RESP 20; TEMP 96.7; O2SAT 96; O2SAT 97
[2016-09-02] MEDS: ACETAMINOPHEN/HYDROcodone 325 MG/5 MG TAB PEG SCH ×5 (00:06→23:40)
[2016-09-02] MEDS: CEFEPIME INJ 1,000 MG in SODIUM CHLORIDE 0.9% INJ 100 ML IV SCH ×4 (00:06→23:40)
[2016-09-02] MEDS: PANTOPRAZOLE SODIUM 40 MG VIAL IV PUSH SCH ×3 (00:07→23:41)
[2016-09-02] MEDS: FREE WATER TUBE SCH ×7 (03:07→23:41)
[2016-09-02] MEDS: ACETIC ACID 0.25% SOLN 1000 ML IRR BTL IRRIGATION SCH ×3 (04:48→23:41)
[2016-09-02] MEDS: HEPARIN SODIUM - SQ 10,000 UNITS/ML VIAL SQ SCH ×3 (04:48→23:39)
[2016-09-02] MEDS: AMOXICILLIN (TRIHYDRATE) 500 MG CAP PO SCH ×3 (04:48→23:41)
[2016-09-02 07:41] VITALS: O2SAT 99
[2016-09-02 08:00] VITALS: BP 127/67; PULSE 89; RESP 17; TEMP 99.1; O2SAT 95
[2016-09-02] MEDS: DILTIAZEM HCL 30 MG TAB PEG SCH ×4 (08:01→23:40)
[2016-09-02] MEDS: levETIRAcetam 500 MG/5 ML UDC TUBE SCH ×2 (08:01→23:39)
[2016-09-02] MEDS: METOPROLOL TARTRATE 50 MG TAB PO SCH ×2 (08:02→23:39)
[2016-09-02] MEDS: DOCUSATE SODIUM 100 MG/10 ML UDC PO SCH ×2 (08:02→23:39)
[2016-09-02] MEDS: SENNOSIDES 8.6 MG TAB PO SCH (08:02)
[2016-09-02] MEDS: POTASSIUM CHLORIDE 25 MEQ EFFERVESCENT TAB TUBE SCH (08:02)
[2016-09-02] MEDS: ASPIRIN 325 MG TAB TUBE SCH (08:02)
[2016-09-02] MEDS: LACTOBACILLUS ACIDOPHILUS TAB PEG SCH ×3 (08:02→18:20)
[2016-09-02] MEDS: ARTIFICIAL TEARS OPTH OINT 3.5 APPLIC/3.5 GM TUBO EACH EYE SCH ×2 (08:03→23:42)
[2016-09-02] MEDS: SODIUM CHLORIDE 0.65% NASAL SPRAY 45 ML BTL NASAL SCH ×2 (08:03→23:42)
[2016-09-02] MEDS: INSULIN ASPART SUPPLEMENTAL SCALE SQ SCH (08:19)
[2016-09-02] MEDS: NYSTATIN 100,000 U/GM PWD 15 GM BTL TOPICAL SCH ×2 (08:20→23:41)
[2016-09-02] MEDS: BACITRACIN TOP OINT 15 GM TUBE TOP SCH ×2 (08:20→23:41)
[2016-09-02 12:23] VITALS: BP 123/73; PULSE 88; RESP 19; TEMP 98.7; O2SAT 98
--- NOTE | 2016-09-02 15:21 | HHI.PR ---
Subjective Remarks The patient appeared comfortable. Family at the bedside telling me that the patient was straining with bowel movements earlier. He also had questions about the timing of the patient's diltiazem. Discussed with nursing. Objective Vitals Vital Signs Date Time Temp Pulse Resp B/P Pulse Ox O2 Delivery O2 Flow Rate FiO2 09/02/16 12:23 98.7 88 19 123/73 98 09/02/16 08:03 99 T-Piece 6.00 28 09/02/16 08:00 99.1 89 17 127/67 95 09/02/16 07:41 99 T-piece 28 09/02/16 00:00 96.7 87 18 111/59 97 09/02/16 00:00 96.7 86 20 111/59 96 09/01/16 21:45 98 T-piece 28 09/01/16 21:45 98 T-piece 28 09/01/16 20:00 97.5 81 20 95/60 98 09/01/16 20:00 98 T-Piece 6.00 28 09/01/16 20:00 81 09/01/16 16:00 97.1 80 22 123/77 99 I/O 09/01/16 09/01/16 09/01/16 09/02/16 09/02/16 09/02/16 07:00 15:00 23:00 07:00 15:00 23:00 Intake Total 2260 ml 1866 ml 520 ml 1040 ml Output Total 850 ml 850 ml 800 ml Balance 1410 ml 1016 ml 520 ml 240 ml IV Total 100 ml 120 ml Tube Feeding 960 ml 1326 ml 320 ml 640 ml Tube Irrigant 1200 ml 20 ml 200 ml 400 ml Other 400 ml Output Urine Total 850 ml 850 ml 800 ml # Bowel Movements 1 Imaging Last Impressions Abdomen X-Ray 08/31/16 0000 Signed Impressions: Service Date/Time: Wednesday, August 31, 2016 16:36 - CONCLUSION: 1. No acute findings. Mild constipation. Durga Dotson MD Chest X-Ray 08/23/16 0000 Signed Impressions: Service Date/Time: Tuesday, August 23, 2016 16:06 - CONCLUSION: Minimal basilar right lung opacity likely representing atelectasis. Kwasi James MD Tube Change 08/14/16 0000 Signed Impressions: Service Date/Time: Sunday, August 14, 2016 15:11 - CONCLUSION: Uncomplicated gastrojejunostomy tube exchange as above. Moises Ramírez MD Abdomen/Pelvis CT 04/12/16 0000 Signed Impressions: Service Date/Time: Tuesday, April 12, 2016 20:52 - CONCLUSION: 1. 6.4 cm necrotic mass or abscess in the soft tissues posteriorly just below the sacrum associated with some bony destructive change of the lower most sacrum and coccyx with inflammatory changes extending into the ischiorectal fossa and into the presacral retroperitoneum predominantly on the left side. There is associated fairly marked mural thickening of the anal verge and rectum. 2. There is gastrostomy and Arevalo catheter present. Stable abdominal aortic aneurysm. Durga Dotson MD Head Magnetic Resonance Angiography 03/05/16 0000 Signed Impressions: Service Date/Time: Saturday, March 05, 2016 09:26 - CONCLUSION: Persistent high-grade subtotal occlusive stenotic lesions in the distal right vertebral artery and proximal basilar artery with significant improvement in flow and recanalization following initial presentation of thrombosis. Stable interstitial circulation without significant stenosis. 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 There is decreasing restricted diffusion and increasing loss of volume characteristic of a subacute to chronic infarct. No evidence of acute infarct, acute hemorrhage mass or edema. Ernesto Kulkarni MD Head CT 01/16/16 0000 Signed Impressions: Service Date/Time: Saturday, January 16, 2016 10:51 - CONCLUSION: No extensive low density in the brainstem colin more prominent in the right the left extending into the right middle cerebellar peduncle consistent with brainstem infarct nonhemorrhagic acute Wellington West MD Neck Magnetic Resonance Angiography 12/22/15 1445 Signed Impressions: Service Date/Time: Tuesday, December 22, 2015 09:22 - CONCLUSION: Variant origin of the left vertebral artery from the aortic arch. No evidence of carotid stenosis. Glen Zamora MD Head/Brain Mag Res Venography 12/22/15 0000 Signed Impressions: Service Date/Time: Tuesday, December 22, 2015 09:22 - CONCLUSION: Normal MRV. Jonel Jones Jr., MD Objective Remarks GENERAL: Resting comfortably. SKIN: Warm and dry. HEAD: Normocephalic. EYES: No scleral icterus. No injection or drainage. NECK: trach in place. CARDIOVASCULAR: Regular rate and rhythm without murmurs, gallops, or rubs. RESPIRATORY: Breath sounds equal bilaterally. No accessory muscle use. GASTROINTESTINAL: Abdomen soft, non-tender, nondistended. PEG tube in place. EXTREMITIES: No edema. NEUROLOGICAL: Awake, alert. Does follow some commands. Procedures 01/02/16 PEG placement 01/02/16 tracheostomy 07/22/2016 Wide excision of sacral skin wound, biopsy of the cavity lining and debridement. PEG tube replacement 07/29/16 Medications and IVs Current Medications Medications (Trade) Dose Ordered Sig/Junior Route Start Time Stop Time Status Last Admin (NS Flush) 2 ml UNSCH PRN IVF 12/21/15 06:00 09/01/16 08:03 (Keppra Liq) 500 mg Q12HR TUBE 12/27/15 21:00 09/02/16 08:01 (Tylenol 650 Mg/ 20 ml Liq) 650 mg Q6H PRN TUBE 12/30/15 15:15 08/23/16 12:52 (Mycostatin Powder) 1 applic Q12HR TOPICAL 01/08/16 21:00 09/02/16 08:20 (Pill Splitter) 1 ea UNSCH PRN OTHER 01/14/16 08:30 (Acetic Acid 0.25% Irr Btl) 10 ml Q8HR IRRIGATION 02/05/16 16:00 09/02/16 13:26 (Ativan Inj) 0.5 mg Q4H PRN IV PUSH 03/07/16 23:00 (Paxil Liq) 20 mg DAILY@1900 PEG 03/12/16 19:00 09/01/16 18:10 (Levemir Inj) 35 units HS SQ 03/24/16 21:00 09/01/16 21:34 (Lacrilube Opht Oint) 1 applic Q12HR EACH EYE 04/10/16 11:00 09/02/16 08:03 (Levsin) 0.25 mg Q4H PRN G-TUBE 04/11/16 10:30 08/31/16 05:02 (Zofran Inj) 4 mg Q6HR PRN IV PUSH 04/14/16 19:45 08/10/16 10:16 (Free Water) 200 ml Q4HR TUBE 04/16/16 12:00 09/02/16 12:00 ([place] 5-325 Mg) 1 tab Q6HR PEG 04/18/16 18:00 09/02/16 12:10 (D50w (Vial) Inj) 25 ml UNSCH PRN IV 04/20/16 12:00 (Glucagon Inj) 1 mg UNSCH PRN IM/SQ 04/20/16 12:00 (K-Lyte Cl Eff) 25 meq DAILY TUBE 05/28/16 09:00 09/02/16 08:02 (Aspirin) 325 mg DAILY TUBE 05/27/16 11:40 09/02/16 08:02 ([place] 5-325 Mg) 1 tab Q6H PRN TUBE 06/03/16 03:00 08/02/16 15:11 (Lactinex) 1 tab TID PEG 06/07/16 13:00 09/02/16 12:10 (Heparin Inj) 5,000 units Q8HR SQ 06/11/16 14:00 09/02/16 13:38 (Baciguent Oint) 1 applic BID TOP 07/20/16 10:00 09/02/16 08:20 (Protonix Inj) 40 mg Q12H IV PUSH 07/30/16 10:15 09/02/16 09:39 ([place] Angel [place]) 1 spray BID NASAL 08/01/16 21:00 09/02/16 08:03 (Cardizem) 30 mg QID PEG 08/16/16 13:00 09/02/16 08:01 Amoxicillin 500 mg 500 mg Q8HR PO 08/22/16 22:00 09/02/16 13:38 (Maxipime Inj/NS Inj) 100 ml @ 200 mls/hr Q8H IV 08/23/16 16:00 09/02/16 08:02 (Lopressor) 75 mg BID PO 08/23/16 21:00 09/02/16 08:02 (Colace Liq) 100 mg BID PO 08/30/16 21:00 09/02/16 08:02 (Senokot) 17.2 mg DAILY PO 08/30/16 14:00 09/02/16 08:02 Date of Insertion: Aug 03, 2016 A/P Problem List: (1) CVA (cerebral vascular accident) ICD Code: I63.9 Status: Acute (2) A-fib ICD Code: I48.91 Status: Chronic (3) DM (diabetes mellitus) ICD Code: E11.9 Status: Chronic Assessment and Plan 1. 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 Patient is nonverbal. Continue Keppra for seizure prophylaxis. PT/OT signed off as patient is unable to participate. 2. Chronic respiratory failure: Secondary to CVA. Status post tracheostomy. Continue pulmonary toilet and bronchodilators as needed. Continue trach care, suctioning. Levsin as needed. On 28% FiO2 09/02. 3. Atrial fibrillation: Continue rate control with Cardizem and metoprolol. Echocardiogram in November 2015 shows preserved ejection fraction. Coumadin discontinued secondary to bleeding. Continue aspirin and prophylactic heparin dose. HR well controlled 09/02. 4. History of non-Hodgkin's lymphoma: Status post brain biopsy on December 13 by neurosurgery. Pathology consistent with acute infarct without evidence of lymphoma. Oncology signed off. 5. Diabetes mellitus: Hemoglobin A1c is 7. Continue Levemir. Monitor Accu-Cheks and cover with sliding scale insulin. Glucose well controlled 09/02. 6. Decubitus ulcer stage IV: Continue wound care, twice-daily dressing changes. Wound care recommendations. Continue pressure relief measures including turning and positioning. Patient's family has declined a diverting colostomy. Wound culture growing Klebsiella. Antibiotics per infectious disease. Status post wide excision of sacral skin and biopsy of the cavity lining with debridement on 07/22/16. 7. Gastric ulcer, reflux esophagitis: EGD on 07/30/16 showed gastric ulcers. Appreciate GI recommendations. Continue PPI. H&H stable. 8. UTI pseudomonas aeruginosa treated with abx . Repeat Ucx 08/28/16 negative. 9. Constipation: The pt has been noted to be straining when having bowel movements. Increase bowel regimen. KUB with mild constipation 08/31. Add lactulose 09/02. FEN: Continue Nepro tube feeds. Appreciate dietary recommendations. Continue free water flushes. Supplement potassium. DVT prophylaxis: SCDs. Discharge Planning Awaiting clinical improvement. Problem Qualifiers (1) DM (diabetes mellitus): Qualified Code: E11.9 - Type 2 diabetes mellitus without complications Gerald Calhoun DO Sep 02, 2016 15:21
--- NOTE | 2016-09-02 15:31 | HHI.PR ---
Subjective Remarks no change on o2 trach ok Objective Vital Signs Date Time Temp Pulse Resp B/P Pulse Ox O2 Delivery O2 Flow Rate FiO2 09/02/16 12:23 98.7 88 19 123/73 98 09/02/16 08:03 99 T-Piece 6.00 28 09/02/16 08:00 99.1 89 17 127/67 95 09/02/16 07:41 99 T-piece 28 09/02/16 00:00 96.7 87 18 111/59 97 09/02/16 00:00 96.7 86 20 111/59 96 09/01/16 21:45 98 T-piece 28 09/01/16 21:45 98 T-piece 28 09/01/16 20:00 97.5 81 20 95/60 98 09/01/16 20:00 98 T-Piece 6.00 09/01/16 20:00 81 09/01/16 16:00 97.1 80 22 123/77 99 I/O 09/01/16 09/01/16 09/01/16 09/02/16 09/02/16 09/02/16 07:00 15:00 23:00 07:00 15:00 23:00 Intake Total 2260 ml 1866 ml 520 ml 1040 ml Output Total 850 ml 850 ml 800 ml Balance 1410 ml 1016 ml 520 ml 240 ml IV Total 100 ml 120 ml Tube Feeding 960 ml 1326 ml 320 ml 640 ml Tube Irrigant 1200 ml 20 ml 200 ml 400 ml Other 400 ml Output Urine Total 850 ml 850 ml 800 ml # Bowel Movements 1 Procedures 01/02/16 PEG placement 01/02/16 tracheostomy 07/22/2016 Wide excision of sacral skin wound, biopsy of the cavity lining and debridement. PEG tube replacement 07/29/16 Objective Remarks GENERAL: SKIN: Warm and dry. HEAD: Atraumatic. Normocephalic. EYES: Pupils equal and round. No scleral icterus. No injection or drainage. ENT: No nasal bleeding or discharge. Mucous membranes pink and moist. NECK: Trachea midline. No JVD. CARDIOVASCULAR: Regular rate and rhythm. RESPIRATORY: No accessory muscle use. Clear to auscultation. Breath sounds equal bilaterally. GASTROINTESTINAL: Abdomen soft, non-tender, nondistended. Hepatic and splenic margins not palpable. MUSCULOSKELETAL: Extremities without clubbing, cyanosis, or edema. No obvious deformities. NEUROLOGICAL: Awake and alert. No obvious cranial nerve deficits. Motor grossly within normal limits. Five out of 5 muscle strength in the arms and legs. Normal speech. PSYCHIATRIC: Appropriate mood and affect; insight and judgment normal. Medications and IVs Last Impressions Abdomen X-Ray 08/31/16 0000 Signed Impressions: Service Date/Time: Wednesday, August 31, 2016 16:36 - CONCLUSION: 1. No acute findings. Mild constipation. Durga Dotson MD Chest X-Ray 08/23/16 0000 Signed Impressions: Service Date/Time: Tuesday, August 23, 2016 16:06 - CONCLUSION: Minimal basilar right lung opacity likely representing atelectasis. Kwasi James MD Tube Change 08/14/16 0000 Signed Impressions: Service Date/Time: Sunday, August 14, 2016 15:11 - CONCLUSION: Uncomplicated gastrojejunostomy tube exchange as above. Moises Ramírez MD Abdomen/Pelvis CT 04/12/16 0000 Signed Impressions: Service Date/Time: Tuesday, April 12, 2016 20:52 - CONCLUSION: 1. 6.4 cm necrotic mass or abscess in the soft tissues posteriorly just below the sacrum associated with some bony destructive change of the lower most sacrum and coccyx with inflammatory changes extending into the ischiorectal fossa and into the presacral retroperitoneum predominantly on the left side. There is associated fairly marked mural thickening of the anal verge and rectum. 2. There is gastrostomy and Arevalo catheter present. Stable abdominal aortic aneurysm. Durga Dotson MD Head Magnetic Resonance Angiography 03/05/16 0000 Signed Impressions: Service Date/Time: Saturday, March 05, 2016 09:26 - CONCLUSION: Persistent high-grade subtotal occlusive stenotic lesions in the distal right vertebral artery and proximal basilar artery with significant improvement in flow and recanalization following initial presentation of thrombosis. Stable interstitial circulation without significant stenosis. 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 There is decreasing restricted diffusion and increasing loss of volume characteristic of a subacute to chronic infarct. No evidence of acute infarct, acute hemorrhage mass or edema. Ernesto Kulkarni MD Head CT 01/16/16 0000 Signed Impressions: Service Date/Time: Saturday, January 16, 2016 10:51 - CONCLUSION: No extensive low density in the brainstem colin more prominent in the right the left extending into the right middle cerebellar peduncle consistent with brainstem infarct nonhemorrhagic acute Wellington West MD Neck Magnetic Resonance Angiography 12/22/15 1445 Signed Impressions: Service Date/Time: Tuesday, December 22, 2015 09:22 - CONCLUSION: Variant origin of the left vertebral artery from the aortic arch. No evidence of carotid stenosis. Glen Zamora MD Head/Brain Mag Res Venography 12/22/15 0000 Signed Impressions: Service Date/Time: Tuesday, December 22, 2015 09:22 - CONCLUSION: Normal MRV. Jonel Jones Jr., MD Assessment and Plan Assessment and Plan respiratory failure CVA S/P TRACHEOSTOMY PLAN O2 NEEDED PULM. TOILET Brandon Taylor MD Sep 02, 2016 15:31
[2016-09-02 15:56] VITALS: BP 118/73; PULSE 87; RESP 20; TEMP 98.5; O2SAT 99
[2016-09-02] MEDS: LACTULOSE SYRUP 20 GM/30 ML CUP PO SCH (16:33)
[2016-09-02] MEDS: PARoxetine HCL SUSP 20 MG/10 ML UDC PEG SCH (18:20)
[2016-09-02 20:00] VITALS: BP 113/73; PULSE 93; RESP 22; TEMP 96.7; O2SAT 97
[2016-09-02] MEDS: INSULIN DETEMIR 100 UNITS/ML VIAL SQ SCH (23:39)
[2016-09-03] VITALS (7 sets, daily range): BP systolic 107–146; BP diastolic 68–79; PULSE 79–98; RESP 14–20; TEMP 96.1–97.8; O2SAT 96–100
[2016-09-03] MEDS: FREE WATER TUBE SCH ×5 (04:00→21:09)
[2016-09-03] MEDS: HEPARIN SODIUM - SQ 10,000 UNITS/ML VIAL SQ SCH ×3 (06:16→21:04)
[2016-09-03] MEDS: ACETAMINOPHEN/HYDROcodone 325 MG/5 MG TAB PEG SCH ×3 (06:16→18:27)
[2016-09-03] MEDS: AMOXICILLIN (TRIHYDRATE) 500 MG CAP PO SCH ×3 (06:16→21:09)
[2016-09-03] MEDS: ACETIC ACID 0.25% SOLN 1000 ML IRR BTL IRRIGATION SCH ×2 (06:27→16:12)
[2016-09-03] MEDS: INSULIN ASPART SUPPLEMENTAL SCALE SQ SCH (06:40)
[2016-09-03] MEDS: SODIUM CHLORIDE 0.65% NASAL SPRAY 45 ML BTL NASAL SCH (09:00)
[2016-09-03] MEDS: ARTIFICIAL TEARS OPTH OINT 3.5 APPLIC/3.5 GM TUBO EACH EYE SCH (09:00)
[2016-09-03] MEDS: PANTOPRAZOLE SODIUM 40 MG VIAL IV PUSH SCH ×2 (10:15→21:08)
[2016-09-03] MEDS: CEFEPIME INJ 1,000 MG in SODIUM CHLORIDE 0.9% INJ 100 ML IV SCH (10:46)
[2016-09-03] MEDS: DOCUSATE SODIUM 100 MG/10 ML UDC PO SCH ×2 (10:51→21:00)
[2016-09-03] MEDS: POTASSIUM CHLORIDE 25 MEQ EFFERVESCENT TAB TUBE SCH (10:51)
[2016-09-03] MEDS: levETIRAcetam 500 MG/5 ML UDC TUBE SCH ×2 (10:51→21:04)
[2016-09-03] MEDS: LACTOBACILLUS ACIDOPHILUS TAB PEG SCH ×3 (10:52→18:26)
[2016-09-03] MEDS: METOPROLOL TARTRATE 50 MG TAB PO SCH (10:53)
[2016-09-03] MEDS: SENNOSIDES 8.6 MG TAB PO SCH (10:53)
[2016-09-03] MEDS: ASPIRIN 325 MG TAB TUBE SCH (10:54)
[2016-09-03] MEDS: DILTIAZEM HCL 30 MG TAB PEG SCH ×4 (10:54→21:09)
[2016-09-03] MEDS: LACTULOSE SYRUP 20 GM/30 ML CUP PO SCH (10:55)
[2016-09-03] MEDS: BACITRACIN TOP OINT 15 GM TUBE TOP SCH (10:57)
[2016-09-03] MEDS: NYSTATIN 100,000 U/GM PWD 15 GM BTL TOPICAL SCH (10:58)
--- NOTE | 2016-09-03 11:37 | HHI.PR ---
Subjective Remarks The patient was resting in bed comfortably. Family was at the bedside. Their questions were answered. Objective Vitals Vital Signs Date Time Temp Pulse Resp B/P Pulse Ox O2 Delivery O2 Flow Rate FiO2 09/03/16 08:10 97.5 87 20 115/72 97 09/03/16 04:00 96.1 86 14 126/78 100 09/03/16 00:00 97.8 98 20 110/70 98 09/02/16 20:00 96.7 93 22 113/73 97 09/02/16 15:56 98.5 87 20 118/73 99 09/02/16 12:23 98.7 88 19 123/73 98 I/O 09/02/16 09/02/16 09/02/16 09/03/16 09/03/16 09/03/16 07:00 15:00 23:00 07:00 15:00 23:00 Intake Total 1040 ml Output Total 800 ml 901 ml 250 ml Balance 240 ml -901 ml -250 ml Tube Feeding 640 ml Tube Irrigant 400 ml Output Urine Total 800 ml 900 ml 250 ml Stool Total 1 ml # Bowel Movements 2 Imaging Last Impressions Abdomen X-Ray 08/31/16 0000 Signed Impressions: Service Date/Time: Wednesday, August 31, 2016 16:36 - CONCLUSION: 1. No acute findings. Mild constipation. Durga Dotson MD Chest X-Ray 08/23/16 0000 Signed Impressions: Service Date/Time: Tuesday, August 23, 2016 16:06 - CONCLUSION: Minimal basilar right lung opacity likely representing atelectasis. Kwasi James MD Tube Change 08/14/16 0000 Signed Impressions: Service Date/Time: Sunday, August 14, 2016 15:11 - CONCLUSION: Uncomplicated gastrojejunostomy tube exchange as above. Moises Ramírez MD Abdomen/Pelvis CT 04/12/16 0000 Signed Impressions: Service Date/Time: Tuesday, April 12, 2016 20:52 - CONCLUSION: 1. 6.4 cm necrotic mass or abscess in the soft tissues posteriorly just below the sacrum associated with some bony destructive change of the lower most sacrum and coccyx with inflammatory changes extending into the ischiorectal fossa and into the presacral retroperitoneum predominantly on the left side. There is associated fairly marked mural thickening of the anal verge and rectum. 2. There is gastrostomy and Arevalo catheter present. Stable abdominal aortic aneurysm. Durga Dotson MD Head Magnetic Resonance Angiography 03/05/16 0000 Signed Impressions: Service Date/Time: Saturday, March 05, 2016 09:26 - CONCLUSION: Persistent high-grade subtotal occlusive stenotic lesions in the distal right vertebral artery and proximal basilar artery with significant improvement in flow and recanalization following initial presentation of thrombosis. Stable interstitial circulation without significant stenosis. 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 There is decreasing restricted diffusion and increasing loss of volume characteristic of a subacute to chronic infarct. No evidence of acute infarct, acute hemorrhage mass or edema. Ernesto Kulkarni MD Head CT 01/16/16 0000 Signed Impressions: Service Date/Time: Saturday, January 16, 2016 10:51 - CONCLUSION: No extensive low density in the brainstem colin more prominent in the right the left extending into the right middle cerebellar peduncle consistent with brainstem infarct nonhemorrhagic acute Wellington West MD Neck Magnetic Resonance Angiography 12/22/15 1445 Signed Impressions: Service Date/Time: Tuesday, December 22, 2015 09:22 - CONCLUSION: Variant origin of the left vertebral artery from the aortic arch. No evidence of carotid stenosis. Glen Zamora MD Head/Brain Mag Res Venography 12/22/15 0000 Signed Impressions: Service Date/Time: Tuesday, December 22, 2015 09:22 - CONCLUSION: Normal MRV. Jonel Jones Jr., MD Objective Remarks GENERAL: Resting comfortably. SKIN: Warm and dry. HEAD: Normocephalic. EYES: No scleral icterus. No injection or drainage. NECK: trach in place. CARDIOVASCULAR: Regular rate and rhythm without murmurs, gallops, or rubs. RESPIRATORY: Breath sounds equal bilaterally. No accessory muscle use. GASTROINTESTINAL: Abdomen soft, non-tender, nondistended. PEG tube in place. EXTREMITIES: No edema. NEUROLOGICAL: Awake, alert. Does follow some commands. Procedures 01/02/16 PEG placement 01/02/16 tracheostomy 07/22/2016 Wide excision of sacral skin wound, biopsy of the cavity lining and debridement. PEG tube replacement 07/29/16 Medications and IVs Current Medications Medications (Trade) Dose Ordered Sig/Junior Route Start Time Stop Time Status Last Admin (NS Flush) 2 ml UNSCH PRN IVF 12/21/15 06:00 09/01/16 08:03 (Keppra Liq) 500 mg Q12HR TUBE 12/27/15 21:00 09/03/16 10:51 (Tylenol 650 Mg/ 20 ml Liq) 650 mg Q6H PRN TUBE 12/30/15 15:15 08/23/16 12:52 (Mycostatin Powder) 1 applic Q12HR TOPICAL 01/08/16 21:00 09/03/16 10:58 (Pill Splitter) 1 ea UNSCH PRN OTHER 01/14/16 08:30 (Acetic Acid 0.25% Irr Btl) 10 ml Q8HR IRRIGATION 02/05/16 16:00 09/03/16 06:27 (Ativan Inj) 0.5 mg Q4H PRN IV PUSH 03/07/16 23:00 (Paxil Liq) 20 mg DAILY@1900 PEG 03/12/16 19:00 09/02/16 18:20 (Levemir Inj) 35 units HS SQ 03/24/16 21:00 09/02/16 23:39 (Lacrilube Opht Oint) 1 applic Q12HR EACH EYE 04/10/16 11:00 09/03/16 09:00 (Levsin) 0.25 mg Q4H PRN G-TUBE 04/11/16 10:30 08/31/16 05:02 (Zofran Inj) 4 mg Q6HR PRN IV PUSH 04/14/16 19:45 08/10/16 10:16 (Free Water) 200 ml Q4HR TUBE 04/16/16 12:00 09/03/16 08:00 ([place] 5-325 Mg) 1 tab Q6HR PEG 04/18/16 18:00 09/03/16 06:16 (D50w (Vial) Inj) 25 ml UNSCH PRN IV 04/20/16 12:00 (Glucagon Inj) 1 mg UNSCH PRN IM/SQ 04/20/16 12:00 (K-Lyte Cl Eff) 25 meq DAILY TUBE 11/8/16 09:00 09/03/16 10:51 (Aspirin) 325 mg DAILY TUBE 05/27/16 11:40 09/03/16 10:54 ([place] 5-325 Mg) 1 tab Q6H PRN TUBE 06/03/16 03:00 08/02/16 15:11 (Lactinex) 1 tab TID PEG 06/07/16 13:00 09/03/16 10:52 (Heparin Inj) 5,000 units Q8HR SQ 06/11/16 14:00 09/03/16 06:16 (Baciguent Oint) 1 applic BID TOP 07/20/16 10:00 09/03/16 10:57 (Protonix Inj) 40 mg Q12H IV PUSH 07/30/16 10:15 09/03/16 10:15 ([place] Angel [place]) 1 spray BID NASAL 08/01/16 21:00 09/03/16 09:00 (Cardizem) 30 mg QID PEG 08/16/16 13:00 09/03/16 10:54 Amoxicillin 500 mg 500 mg Q8HR PO 08/22/16 22:00 09/03/16 06:16 (Maxipime Inj/NS Inj) 100 ml @ 200 mls/hr Q8H IV 08/23/16 16:00 09/03/16 10:46 (Lopressor) 75 mg BID PO 08/23/16 21:00 09/03/16 10:53 (Colace Liq) 100 mg BID PO 08/30/16 21:00 09/03/16 10:51 (Senokot) 17.2 mg DAILY PO 08/30/16 14:00 09/03/16 10:53 (Lactulose Liq) 30 ml DAILY PO 09/02/16 15:30 09/03/16 10:55 Date of Insertion: Aug 03, 2016 A/P Problem List: (1) CVA (cerebral vascular accident) ICD Code: I63.9 Status: Acute (2) A-fib ICD Code: I48.91 Status: Chronic (3) DM (diabetes mellitus) ICD Code: E11.9 Status: Chronic Assessment and Plan 1. 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 Patient is nonverbal. Continue Keppra for seizure prophylaxis. PT/OT signed off as patient is unable to participate. 2. Chronic respiratory failure: Secondary to CVA. Status post tracheostomy. Continue pulmonary toilet and bronchodilators as needed. Continue trach care, suctioning. Levsin as needed. On 28% FiO2 09/03. 3. Atrial fibrillation: Continue rate control with Cardizem and metoprolol. Echocardiogram in November 2015 shows preserved ejection fraction. Coumadin discontinued secondary to bleeding. Continue aspirin and prophylactic heparin dose. HR well controlled 09/03. 4. History of non-Hodgkin's lymphoma: Status post brain biopsy on December 13 by neurosurgery. Pathology consistent with acute infarct without evidence of lymphoma. Oncology signed off. 5. Diabetes mellitus: Hemoglobin A1c is 7. Continue Levemir. Monitor Accu-Cheks and cover with sliding scale insulin. Glucose well controlled 09/03. 6. Decubitus ulcer stage IV: Continue wound care, twice-daily dressing changes. Wound care recommendations. Continue pressure relief measures including turning and positioning. Patient's family has declined a diverting colostomy. Wound culture growing Klebsiella. Antibiotics per infectious disease. Status post wide excision of sacral skin and biopsy of the cavity lining with debridement on 07/22/16. 7. Gastric ulcer, reflux esophagitis: EGD on 07/30/16 showed gastric ulcers. Appreciate GI recommendations. Continue PPI. H&H stable. 8. UTI pseudomonas aeruginosa treated with abx . Repeat Ucx 08/28/16 negative. 9. Constipation: The pt has been noted to be straining when having bowel movements. Increase bowel regimen. KUB with mild constipation 08/31. Added lactulose 09/02. FEN: Continue Nepro tube feeds. Appreciate dietary recommendations. Continue free water flushes. Supplement potassium. DVT prophylaxis: SCDs. Discharge Planning Awaiting clinical improvement. Problem Qualifiers (1) DM (diabetes mellitus): Qualified Code: E11.9 - Type 2 diabetes mellitus without complications Gerald Calhoun DO Sep 03, 2016 11:37
--- NOTE | 2016-09-03 18:41 | HHI.PR ---
Subjective Remarks no change on o2 , o2 SAT 96% trach ok Objective Vital Signs Date Time Temp Pulse Resp B/P Pulse Ox O2 Delivery O2 Flow Rate FiO2 09/03/16 17:09 17 09/03/16 16:58 97.3 84 20 146/79 100 09/03/16 14:09 96 T-piece 28 09/03/16 14:09 96 T-piece 28 09/03/16 12:14 97.4 86 20 107/70 100 09/03/16 08:10 97.5 87 20 115/72 97 09/03/16 04:00 96.1 86 14 126/78 100 09/03/16 00:00 97.8 98 20 110/70 98 09/02/16 20:00 96.7 93 22 113/73 97 I/O 09/02/16 09/02/16 09/02/16 09/03/16 09/03/16 09/03/16 07:00 15:00 23:00 07:00 15:00 23:00 Intake Total 1040 ml Output Total 800 ml 901 ml 250 ml 650 ml Balance 240 ml -901 ml -250 ml -650 ml Tube Feeding 640 ml Tube Irrigant 400 ml Output Urine Total 800 ml 900 ml 250 ml 650 ml Stool Total 1 ml # Bowel Movements 2 2 Procedures 01/02/16 PEG placement 01/02/16 tracheostomy 07/22/2016 Wide excision of sacral skin wound, biopsy of the cavity lining and debridement. PEG tube replacement 07/29/16 Objective Remarks GENERAL: SKIN: Warm and dry. HEAD: Atraumatic. Normocephalic. EYES: Pupils equal and round. No scleral icterus. No injection or drainage. ENT: No nasal bleeding or discharge. Mucous membranes pink and moist. NECK: Trachea midline. No JVD. TRACH. [place] CARDIOVASCULAR: Regular rate and rhythm. RESPIRATORY: No accessory muscle use. Clear to auscultation. Breath sounds equal bilaterally. GASTROINTESTINAL: Abdomen soft, non-tender, nondistended. Hepatic and splenic margins not palpable. MUSCULOSKELETAL: Extremities without clubbing, cyanosis, or edema. No obvious deformities. NEUROLOGICAL: Awake and alert. No obvious cranial nerve deficits. Motor grossly within normal limits. Five out of 5 muscle strength in the arms and legs. Normal speech. PSYCHIATRIC: Appropriate mood and affect; insight and judgment normal. Assessment and Plan Assessment and Plan respiratory failure CVA S/P TRACHEOSTOMY PLAN O2 NEEDED PULM. TOILET Brandon Taylor MD Sep 03, 2016 18:41
[2016-09-03] MEDS: PARoxetine HCL SUSP 20 MG/10 ML UDC PEG SCH (21:03)
[2016-09-03] MEDS: SODIUM CHLORIDE 0.9% FLUSH 5 ML FLUSH IVF PRN (21:15)
[2016-09-04] VITALS (10 sets, daily range): BP systolic 103–133; BP diastolic 59–71; PULSE 74–87; RESP 20–22; TEMP 95.9–97.9; O2SAT 97–99
[2016-09-04] MEDS: METOPROLOL TARTRATE 50 MG TAB PO SCH ×2 (02:09→07:57)
[2016-09-04] MEDS: SODIUM CHLORIDE 0.65% NASAL SPRAY 45 ML BTL NASAL SCH ×3 (02:10→21:00)
[2016-09-04] MEDS: ARTIFICIAL TEARS OPTH OINT 3.5 APPLIC/3.5 GM TUBO EACH EYE SCH ×3 (02:10→21:00)
[2016-09-04] MEDS: INSULIN DETEMIR 100 UNITS/ML VIAL SQ SCH (02:10)
[2016-09-04] MEDS: BACITRACIN TOP OINT 15 GM TUBE TOP SCH ×3 (02:10→21:00)
[2016-09-04] MEDS: NYSTATIN 100,000 U/GM PWD 15 GM BTL TOPICAL SCH ×2 (02:10→07:59)
[2016-09-04] MEDS: ACETAMINOPHEN/HYDROcodone 325 MG/5 MG TAB PEG SCH ×4 (02:10→17:51)
[2016-09-04] MEDS: FREE WATER TUBE SCH ×6 (02:11→20:00)
[2016-09-04] MEDS: ACETIC ACID 0.25% SOLN 1000 ML IRR BTL IRRIGATION SCH ×3 (02:14→15:09)
[2016-09-04] MEDS: INSULIN ASPART SUPPLEMENTAL SCALE SQ SCH (06:18)
[2016-09-04] MEDS: HEPARIN SODIUM - SQ 10,000 UNITS/ML VIAL SQ SCH ×2 (06:19→15:17)
[2016-09-04] MEDS: AMOXICILLIN (TRIHYDRATE) 500 MG CAP PO SCH ×2 (06:20→14:00)
[2016-09-04] MEDS: DOCUSATE SODIUM 100 MG/10 ML UDC PO SCH (07:56)
[2016-09-04] MEDS: DILTIAZEM HCL 30 MG TAB PEG SCH ×3 (07:57→17:51)
[2016-09-04] MEDS: SENNOSIDES 8.6 MG TAB PO SCH (07:57)
[2016-09-04] MEDS: ASPIRIN 325 MG TAB TUBE SCH (07:57)
[2016-09-04] MEDS: levETIRAcetam 500 MG/5 ML UDC TUBE SCH (07:58)
[2016-09-04] MEDS: POTASSIUM CHLORIDE 25 MEQ EFFERVESCENT TAB TUBE SCH (07:58)
[2016-09-04] MEDS: LACTOBACILLUS ACIDOPHILUS TAB PEG SCH ×3 (07:58→17:51)
[2016-09-04] MEDS: LACTULOSE SYRUP 20 GM/30 ML CUP PO SCH (07:59)
--- NOTE | 2016-09-04 14:25 | HHI.PR ---
Subjective Remarks The patient was resting comfortably. His family was concerned that his stomach continued to get distended at times. They're also worried about the patient's Cardizem dose. Objective Vitals Vital Signs Date Time Temp Pulse Resp B/P Pulse Ox O2 Delivery O2 Flow Rate FiO2 09/04/16 13:06 95.9 74 20 103/60 97 09/04/16 07:30 96.7 81 20 104/71 98 09/04/16 04:00 97.3 76 20 133/69 98 09/04/16 00:00 97.4 87 20 127/71 99 09/03/16 20:00 97.3 79 20 121/68 98 09/03/16 17:09 17 09/03/16 16:58 97.3 84 20 146/79 100 I/O 09/03/16 09/03/16 09/03/16 09/04/16 09/04/16 09/04/16 07:00 15:00 23:00 07:00 15:00 23:00 Intake Total 368 ml Output Total 250 ml 650 ml 800 ml 1000 ml Balance -250 ml -650 ml -800 ml -1000 ml 368 ml Tube Feeding 368 ml Output Urine Total 250 ml 650 ml 800 ml 1000 ml # Bowel Movements 2 1 Imaging Last Impressions Abdomen X-Ray 08/31/16 0000 Signed Impressions: Service Date/Time: Wednesday, August 31, 2016 16:36 - CONCLUSION: 1. No acute findings. Mild constipation. Durga Dotson MD Chest X-Ray 08/23/16 0000 Signed Impressions: Service Date/Time: Tuesday, August 23, 2016 16:06 - CONCLUSION: Minimal basilar right lung opacity likely representing atelectasis. Kwasi James MD Tube Change 08/14/16 0000 Signed Impressions: Service Date/Time: Sunday, August 14, 2016 15:11 - CONCLUSION: Uncomplicated gastrojejunostomy tube exchange as above. Moises Ramírez MD Abdomen/Pelvis CT 04/12/16 0000 Signed Impressions: Service Date/Time: Tuesday, April 12, 2016 20:52 - CONCLUSION: 1. 6.4 cm necrotic mass or abscess in the soft tissues posteriorly just below the sacrum associated with some bony destructive change of the lower most sacrum and coccyx with inflammatory changes extending into the ischiorectal fossa and into the presacral retroperitoneum predominantly on the left side. There is associated fairly marked mural thickening of the anal verge and rectum. 2. There is gastrostomy and Arevalo catheter present. Stable abdominal aortic aneurysm. Durga Dotson MD Head Magnetic Resonance Angiography 03/05/16 0000 Signed Impressions: Service Date/Time: Saturday, March 05, 2016 09:26 - CONCLUSION: Persistent high-grade subtotal occlusive stenotic lesions in the distal right vertebral artery and proximal basilar artery with significant improvement in flow and recanalization following initial presentation of thrombosis. Stable interstitial circulation without significant stenosis. 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 There is decreasing restricted diffusion and increasing loss of volume characteristic of a subacute to chronic infarct. No evidence of acute infarct, acute hemorrhage mass or edema. Ernesto Kulkarni MD Head CT 01/16/16 0000 Signed Impressions: Service Date/Time: Saturday, January 16, 2016 10:51 - CONCLUSION: No extensive low density in the brainstem colin more prominent in the right the left extending into the right middle cerebellar peduncle consistent with brainstem infarct nonhemorrhagic acute Wellington West MD Neck Magnetic Resonance Angiography 12/22/15 1445 Signed Impressions: Service Date/Time: Tuesday, December 22, 2015 09:22 - CONCLUSION: Variant origin of the left vertebral artery from the aortic arch. No evidence of carotid stenosis. Glen Zamora MD Head/Brain Mag Res Venography 12/22/15 0000 Signed Impressions: Service Date/Time: Tuesday, December 22, 2015 09:22 - CONCLUSION: Normal MRV. Jonel Jones Jr., MD Objective Remarks GENERAL: Resting comfortably. SKIN: Warm and dry. HEAD: Normocephalic. EYES: No scleral icterus. No injection or drainage. NECK: trach in place. CARDIOVASCULAR: Regular rate and rhythm without murmurs, gallops, or rubs. RESPIRATORY: Breath sounds equal bilaterally. No accessory muscle use. GASTROINTESTINAL: Abdomen soft, non-tender, nondistended. PEG tube in place. EXTREMITIES: No edema. NEUROLOGICAL: Awake, alert. Does follow some commands. Procedures 01/02/16 PEG placement 01/02/16 tracheostomy 07/22/2016 Wide excision of sacral skin wound, biopsy of the cavity lining and debridement. PEG tube replacement 07/29/16 Medications and IVs Current Medications Medications (Trade) Dose Ordered Sig/Junior Route Start Time Stop Time Status Last Admin (NS Flush) 2 ml UNSCH PRN IVF 12/21/15 06:00 09/03/16 21:15 (Keppra Liq) 500 mg Q12HR TUBE 12/27/15 21:00 09/04/16 07:58 (Tylenol 650 Mg/ 20 ml Liq) 650 mg Q6H PRN TUBE 12/30/15 15:15 08/23/16 12:52 (Mycostatin Powder) 1 applic Q12HR TOPICAL 01/08/16 21:00 09/04/16 07:59 (Pill Splitter) 1 ea UNSCH PRN OTHER 01/14/16 08:30 (Acetic Acid 0.25% Irr Btl) 10 ml Q8HR IRRIGATION 02/05/16 16:00 09/04/16 06:20 (Ativan Inj) 0.5 mg Q4H PRN IV PUSH 03/07/16 23:00 (Paxil Liq) 20 mg DAILY@1900 PEG 03/12/16 19:00 09/03/16 21:03 (Levemir Inj) 35 units HS SQ 03/24/16 21:00 09/04/16 02:10 (Lacrilube Opht Oint) 1 applic Q12HR EACH EYE 04/10/16 11:00 09/04/16 07:59 (Levsin) 0.25 mg Q4H PRN G-TUBE 04/11/16 10:30 08/31/16 05:02 (Zofran Inj) 4 mg Q6HR PRN IV PUSH 04/14/16 19:45 08/10/16 10:16 (Free Water) 200 ml Q4HR TUBE 04/16/16 12:00 09/04/16 11:47 ([place] 5-325 Mg) 1 tab Q6HR PEG 04/18/16 18:00 09/04/16 06:18 (D50w (Vial) Inj) 25 ml UNSCH PRN IV 04/20/16 12:00 (Glucagon Inj) 1 mg UNSCH PRN IM/SQ 04/20/16 12:00 (K-Lyte Cl Eff) 25 meq DAILY TUBE 05/28/16 09:00 09/04/16 07:58 (Aspirin) 325 mg DAILY TUBE 05/27/16 11:40 09/04/16 07:57 ([place] 5-325 Mg) 1 tab Q6H PRN TUBE 06/03/16 03:00 08/02/16 15:11 (Lactinex) 1 tab TID PEG 06/07/16 13:00 09/04/16 07:58 (Heparin Inj) 5,000 units Q8HR SQ 06/11/16 14:00 09/04/16 06:19 (Baciguent Oint) 1 applic BID TOP 07/20/16 10:00 09/04/16 07:59 (Protonix Inj) 40 mg Q12H IV PUSH 07/30/16 10:15 09/03/16 21:08 ([place]) 1 spray BID NASAL 08/01/16 21:00 09/04/16 07:59 (Cardizem) 30 mg QID PEG 08/16/16 13:00 09/04/16 07:57 (Trimox) 500 mg Q8HR PO 08/22/16 22:00 09/04/16 06:20 (Lopressor) 75 mg BID PO 08/23/16 21:00 09/04/16 07:57 (Colace Liq) 100 mg BID PO 08/30/16 21:00 09/04/16 07:56 (Senokot) 17.2 mg DAILY PO 08/30/16 14:00 09/04/16 07:57 (Lactulose Liq) 30 ml DAILY PO 09/02/16 15:30 09/04/16 07:59 Date of Insertion: Aug 03, 2016 A/P Problem List: (1) CVA (cerebral vascular accident) ICD Code: I63.9 Status: Acute (2) A-fib ICD Code: I48.91 Status: Chronic (3) DM (diabetes mellitus) ICD Code: E11.9 Status: Chronic Assessment and Plan 1. 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 Patient is nonverbal. Continue Keppra for seizure prophylaxis. PT/OT signed off as patient is unable to participate. 2. Chronic respiratory failure: Secondary to CVA. Status post tracheostomy. Continue pulmonary toilet and bronchodilators as needed. Continue trach care, suctioning. Levsin as needed. On 28% FiO2 09/04. 3. Atrial fibrillation: Continue rate control with Cardizem and metoprolol. Echocardiogram in November 2015 shows preserved ejection fraction. Coumadin discontinued secondary to bleeding. Continue aspirin and prophylactic heparin dose. HR well controlled 09/04. 4. History of non-Hodgkin's lymphoma: Status post brain biopsy on December 13 by neurosurgery. Pathology consistent with acute infarct without evidence of lymphoma. Oncology signed off. 5. Diabetes mellitus: Hemoglobin A1c is 7. Continue Levemir. Monitor Accu-Cheks and cover with sliding scale insulin. Glucose well controlled 09/04. 6. Decubitus ulcer stage IV: Continue wound care, twice-daily dressing changes. Wound care recommendations. Continue pressure relief measures including turning and positioning. Patient's family has declined a diverting colostomy. Wound culture growing Klebsiella. Antibiotics per infectious disease. Status post wide excision of sacral skin and biopsy of the cavity lining with debridement on 07/22/16. 7. Gastric ulcer, reflux esophagitis: EGD on 07/30/16 showed gastric ulcers. Appreciate GI recommendations. Continue PPI. H&H stable. 8. UTI pseudomonas aeruginosa treated with abx . Repeat Ucx 08/28/16 negative. 9. Constipation: The pt has been noted to be straining when having bowel movements. Increase bowel regimen. KUB with mild constipation 08/31. Added lactulose 09/02. FEN: Continue Nepro tube feeds. Decrease to 60 ml/hr 09/04 because of constant bloating. Follow up with dietary recommendations. Continue free water flushes. Supplement potassium. DVT prophylaxis: SCDs. Discharge Planning Awaiting clinical improvement. Problem Qualifiers (1) DM (diabetes mellitus): Qualified Code: E11.9 - Type 2 diabetes mellitus without complications Gerald Calhoun DO Sep 04, 2016 14:25
[2016-09-04] MEDS: PANTOPRAZOLE SODIUM 40 MG VIAL IV PUSH SCH (15:09)
[2016-09-04] MEDS: PARoxetine HCL SUSP 20 MG/10 ML UDC PEG SCH (17:51)
--- NOTE | 2016-09-04 19:03 | HHI.PR ---
Subjective Remarks no change on o2 , o2 SAT 96% trach ok Objective Vital Signs Date Time Temp Pulse Resp B/P Pulse Ox O2 Delivery O2 Flow Rate FiO2 09/04/16 18:45 96 T-Piece 6.00 28 09/04/16 18:31 83 09/04/16 18:30 98 Nasal Cannula 6.00 28 09/04/16 18:29 98 T-piece 6.00 28 09/04/16 17:23 97.9 83 20 115/59 98 09/04/16 16:08 18 09/04/16 13:06 95.9 74 20 103/60 97 09/04/16 09:58 97 T-piece 28 09/04/16 09:58 97 T-piece 28 09/04/16 07:30 96.7 81 20 104/71 98 09/04/16 04:00 97.3 76 20 133/69 98 09/04/16 00:00 97.4 87 20 127/71 99 09/03/16 20:00 97.3 79 20 121/68 98 I/O 09/03/16 09/03/16 09/03/16 09/04/16 09/04/16 09/04/16 07:00 15:00 23:00 07:00 15:00 23:00 Intake Total 968 ml Output Total 250 ml 650 ml 800 ml 1000 ml 1650 ml Balance -250 ml -650 ml -800 ml -1000 ml -682 ml Tube Feeding 968 ml Output Urine Total 250 ml 650 ml 800 ml 1000 ml 1650 ml # Bowel Movements 2 1 3 Procedures 01/02/16 PEG placement 01/02/16 tracheostomy 07/22/2016 Wide excision of sacral skin wound, biopsy of the cavity lining and debridement. PEG tube replacement 07/29/16 Objective Remarks GENERAL: SKIN: Warm and dry. HEAD: Atraumatic. Normocephalic. EYES: Pupils equal and round. No scleral icterus. No injection or drainage. ENT: No nasal bleeding or discharge. Mucous membranes pink and moist. NECK: Trachea midline. No JVD. TRACH. [place] CARDIOVASCULAR: Regular rate and rhythm. RESPIRATORY: No accessory muscle use. Clear to auscultation. Breath sounds equal bilaterally. GASTROINTESTINAL: Abdomen soft, non-tender, nondistended. Hepatic and splenic margins not palpable. MUSCULOSKELETAL: Extremities without clubbing, cyanosis, or edema. No obvious deformities. NEUROLOGICAL: Awake and alert. No obvious cranial nerve deficits. Motor grossly within normal limits. Five out of 5 muscle strength in the arms and legs. Normal speech. PSYCHIATRIC: Appropriate mood and affect; insight and judgment normal. Assessment and Plan Assessment and Plan respiratory failure CVA S/P TRACHEOSTOMY PLAN O2 NEEDED PULM. TOILET Brandon Taylor MD Sep 04, 2016 19:03
[2016-09-05] VITALS (9 sets, daily range): BP systolic 106–144; BP diastolic 62–82; PULSE 81–91; RESP 19–22; TEMP 96.8–97.9; O2SAT 92–100
[2016-09-05] MEDS: DOCUSATE SODIUM 100 MG/10 ML UDC PO SCH ×3 (01:17→23:07)
[2016-09-05] MEDS: levETIRAcetam 500 MG/5 ML UDC TUBE SCH ×3 (01:17→23:07)
[2016-09-05] MEDS: METOPROLOL TARTRATE 50 MG TAB PO SCH ×3 (01:18→23:06)
[2016-09-05] MEDS: DILTIAZEM HCL 30 MG TAB PEG SCH ×5 (01:19→23:07)
[2016-09-05] MEDS: ACETAMINOPHEN/HYDROcodone 325 MG/5 MG TAB PEG SCH ×4 (01:19→18:14)
[2016-09-05] MEDS: HEPARIN SODIUM - SQ 10,000 UNITS/ML VIAL SQ SCH ×4 (01:19→23:12)
[2016-09-05] MEDS: AMOXICILLIN (TRIHYDRATE) 500 MG CAP PO SCH ×4 (01:19→23:17)
[2016-09-05] MEDS: PANTOPRAZOLE SODIUM 40 MG VIAL IV PUSH SCH ×3 (01:20→23:11)
[2016-09-05] MEDS: INSULIN DETEMIR 100 UNITS/ML VIAL SQ SCH ×2 (01:20→23:08)
[2016-09-05] MEDS: NYSTATIN 100,000 U/GM PWD 15 GM BTL TOPICAL SCH ×3 (01:26→23:08)
[2016-09-05] MEDS: ACETIC ACID 0.25% SOLN 1000 ML IRR BTL IRRIGATION SCH ×4 (01:29→23:12)
[2016-09-05] MEDS: FREE WATER TUBE SCH ×6 (04:00→20:00)
[2016-09-05] MEDS: INSULIN ASPART SUPPLEMENTAL SCALE SQ SCH (05:27)
[2016-09-05] MEDS: ASPIRIN 325 MG TAB TUBE SCH (08:22)
[2016-09-05] MEDS: LACTOBACILLUS ACIDOPHILUS TAB PEG SCH ×3 (08:22→18:14)
[2016-09-05] MEDS: SENNOSIDES 8.6 MG TAB PO SCH (08:22)
[2016-09-05] MEDS: LACTULOSE SYRUP 20 GM/30 ML CUP PO SCH (08:22)
[2016-09-05] MEDS: SODIUM CHLORIDE 0.9% FLUSH 5 ML FLUSH IVF PRN (08:32)
[2016-09-05] MEDS: SODIUM CHLORIDE 0.65% NASAL SPRAY 45 ML BTL NASAL SCH ×2 (08:38→23:05)
--- NOTE | 2016-09-05 08:47 | HHI.PR ---
Subjective Remarks no change on o2 , o2 SAT 96% trach ok Objective Vital Signs Date Time Temp Pulse Resp B/P Pulse Ox O2 Delivery O2 Flow Rate FiO2 09/05/16 08:12 96.8 86 19 106/69 92 09/05/16 04:00 97.2 84 22 107/68 95 09/05/16 02:30 20 09/05/16 00:00 97.7 91 20 124/74 98 09/04/16 20:00 97.6 86 22 122/69 98 09/04/16 18:45 96 T-Piece 6.00 28 09/04/16 18:31 83 09/04/16 18:30 98 Nasal Cannula 6.00 28 09/04/16 18:29 98 T-piece 6.00 28 09/04/16 17:23 97.9 83 20 115/59 98 09/04/16 13:06 95.9 74 20 103/60 97 09/04/16 09:58 97 T-piece 28 09/04/16 09:58 97 T-piece 28 I/O 09/04/16 09/04/16 09/04/16 09/05/16 09/05/16 09/05/16 07:00 15:00 23:00 07:00 15:00 23:00 Intake Total 968 ml 200 ml 1494 ml Output Total 1000 ml 1650 ml 600 ml 600 ml Balance -1000 ml -682 ml -400 ml 894 ml Tube Feeding 968 ml 1054 ml Other 200 ml 440 ml Output Urine Total 1000 ml 1650 ml 600 ml 600 ml # Bowel Movements 3 0 0 Procedures 01/02/16 PEG placement 01/02/16 tracheostomy 07/22/2016 Wide excision of sacral skin wound, biopsy of the cavity lining and debridement. PEG tube replacement 07/29/16 Objective Remarks GENERAL: SKIN: Warm and dry. HEAD: Atraumatic. Normocephalic. EYES: Pupils equal and round. No scleral icterus. No injection or drainage. ENT: No nasal bleeding or discharge. Mucous membranes pink and moist. NECK: Trachea midline. No JVD. TRACH. [place] CARDIOVASCULAR: Regular rate and rhythm. RESPIRATORY: No accessory muscle use. Clear to auscultation. Breath sounds equal bilaterally. GASTROINTESTINAL: Abdomen soft, non-tender, nondistended. Hepatic and splenic margins not palpable. MUSCULOSKELETAL: Extremities without clubbing, cyanosis, or edema. No obvious deformities. NEUROLOGICAL: Awake and alert. No obvious cranial nerve deficits. Motor grossly within normal limits. Five out of 5 muscle strength in the arms and legs. Normal speech. PSYCHIATRIC: Appropriate mood and affect; insight and judgment normal. Assessment and Plan Assessment and Plan respiratory failure CVA S/P TRACHEOSTOMY PLAN O2 NEEDED PULM. TOILET Brandon Taylor MD Sep 05, 2016 08:47
[2016-09-05] MEDS: BACITRACIN TOP OINT 15 GM TUBE TOP SCH ×2 (09:00→23:10)
[2016-09-05] MEDS: POTASSIUM CHLORIDE 25 MEQ EFFERVESCENT TAB TUBE SCH (09:00)
--- NOTE | 2016-09-05 15:15 | HHI.PR ---
Subjective Remarks The patient was resting comfortably. Family at the bedside. Concerned once again about the patient straining during bowel movements. No other acute complaints or concerns. Objective Vitals Vital Signs Date Time Temp Pulse Resp B/P Pulse Ox O2 Delivery O2 Flow Rate FiO2 09/05/16 12:58 97.2 91 19 144/82 100 09/05/16 08:12 96.8 86 19 106/69 92 09/05/16 07:00 Trach Collar 6.00 28 T-Piece 09/05/16 07:00 81 09/05/16 04:00 97.2 84 22 107/68 95 09/05/16 02:30 20 09/05/16 00:00 97.7 91 20 124/74 98 09/04/16 20:00 97.6 86 22 122/69 98 09/04/16 18:45 96 T-Piece 6.00 28 09/04/16 18:31 83 09/04/16 18:30 98 Nasal Cannula 6.00 28 09/04/16 18:29 98 T-piece 6.00 28 09/04/16 17:23 97.9 83 20 115/59 98 I/O 09/04/16 09/04/16 09/04/16 09/05/16 09/05/16 09/05/16 07:00 15:00 23:00 07:00 15:00 23:00 Intake Total 968 ml 200 ml 1494 ml Output Total 1000 ml 1650 ml 600 ml 600 ml 400 ml Balance -1000 ml -682 ml -400 ml 894 ml -400 ml Tube Feeding 968 ml 1054 ml Other 200 ml 440 ml Output Urine Total 1000 ml 1650 ml 600 ml 600 ml 400 ml # Bowel Movements 3 0 0 1 Imaging Last Impressions Abdomen X-Ray 08/31/16 0000 Signed Impressions: Service Date/Time: Wednesday, August 31, 2016 16:36 - CONCLUSION: 1. No acute findings. Mild constipation. Durga Dotson MD Chest X-Ray 08/23/16 0000 Signed Impressions: Service Date/Time: Tuesday, August 23, 2016 16:06 - CONCLUSION: Minimal basilar right lung opacity likely representing atelectasis. Kwasi James MD Tube Change 08/14/16 0000 Signed Impressions: Service Date/Time: Sunday, August 14, 2016 15:11 - CONCLUSION: Uncomplicated gastrojejunostomy tube exchange as above. Moises Ramírez MD Abdomen/Pelvis CT 04/12/16 0000 Signed Impressions: Service Date/Time: Tuesday, April 12, 2016 20:52 - CONCLUSION: 1. 6.4 cm necrotic mass or abscess in the soft tissues posteriorly just below the sacrum associated with some bony destructive change of the lower most sacrum and coccyx with inflammatory changes extending into the ischiorectal fossa and into the presacral retroperitoneum predominantly on the left side. There is associated fairly marked mural thickening of the anal verge and rectum. 2. There is gastrostomy and Arevalo catheter present. Stable abdominal aortic aneurysm. Durga Dotson MD Head Magnetic Resonance Angiography 03/05/16 0000 Signed Impressions: Service Date/Time: Saturday, March 05, 2016 09:26 - CONCLUSION: Persistent high-grade subtotal occlusive stenotic lesions in the distal right vertebral artery and proximal basilar artery with significant improvement in flow and recanalization following initial presentation of thrombosis. Stable interstitial circulation without significant stenosis. 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 There is decreasing restricted diffusion and increasing loss of volume characteristic of a subacute to chronic infarct. No evidence of acute infarct, acute hemorrhage mass or edema. Ernesto Kulkarni MD Head CT 01/16/16 0000 Signed Impressions: Service Date/Time: Saturday, January 16, 2016 10:51 - CONCLUSION: No extensive low density in the brainstem colin more prominent in the right the left extending into the right middle cerebellar peduncle consistent with brainstem infarct nonhemorrhagic acute Wellington West MD Neck Magnetic Resonance Angiography 12/22/15 1445 Signed Impressions: Service Date/Time: Tuesday, December 22, 2015 09:22 - CONCLUSION: Variant origin of the left vertebral artery from the aortic arch. No evidence of carotid stenosis. Glen Zamora MD Head/Brain Mag Res Venography 12/22/15 0000 Signed Impressions: Service Date/Time: Tuesday, December 22, 2015 09:22 - CONCLUSION: Normal MRV. Jonel Jones Jr., MD Objective Remarks GENERAL: Resting comfortably. SKIN: Warm and dry. HEAD: Normocephalic. EYES: No scleral icterus. No injection or drainage. NECK: trach in place. CARDIOVASCULAR: Regular rate and rhythm without murmurs, gallops, or rubs. RESPIRATORY: Breath sounds equal bilaterally. No accessory muscle use. GASTROINTESTINAL: Abdomen soft, non-tender, nondistended. PEG tube in place. EXTREMITIES: No edema. NEUROLOGICAL: Awake, alert. Does follow some commands. Procedures 01/02/16 PEG placement 01/02/16 tracheostomy 07/22/2016 Wide excision of sacral skin wound, biopsy of the cavity lining and debridement. PEG tube replacement 07/29/16 Medications and IVs Current Medications Medications (Trade) Dose Ordered Sig/Junior Route Start Time Stop Time Status Last Admin (NS Flush) 2 ml UNSCH PRN IVF 12/21/15 06:00 09/05/16 08:32 (Keppra Liq) 500 mg Q12HR TUBE 12/27/15 21:00 09/05/16 08:22 (Tylenol 650 Mg/ 20 ml Liq) 650 mg Q6H PRN TUBE 12/30/15 15:15 08/23/16 12:52 (Mycostatin Powder) 1 applic Q12HR TOPICAL 01/08/16 21:00 09/05/16 08:39 (Pill Splitter) 1 ea UNSCH PRN OTHER 01/14/16 08:30 (Acetic Acid 0.25% Irr Btl) 10 ml Q8HR IRRIGATION 02/05/16 16:00 09/05/16 13:01 (Ativan Inj) 0.5 mg Q4H PRN IV PUSH 03/07/16 23:00 (Paxil Liq) 20 mg DAILY@1900 PEG 03/12/16 19:00 09/04/16 17:51 (Levemir Inj) 35 units HS SQ 03/24/16 21:00 09/05/16 01:20 (Levsin) 0.25 mg Q4H PRN G-TUBE 04/11/16 10:30 08/31/16 05:02 (Zofran Inj) 4 mg Q6HR PRN IV PUSH 04/14/16 19:45 08/10/16 10:16 (Free Water) 200 ml Q4HR TUBE 04/16/16 12:00 09/05/16 12:00 ([place] 5-325 Mg) 1 tab Q6HR PEG 04/18/16 18:00 09/05/16 12:00 (D50w (Vial) Inj) 25 ml UNSCH PRN IV 04/20/16 12:00 (Glucagon Inj) 1 mg UNSCH PRN IM/SQ 04/20/16 12:00 (K-Lyte Cl Eff) 25 meq DAILY TUBE 05/28/16 09:00 09/05/16 09:00 (Aspirin) 325 mg DAILY TUBE 05/27/16 11:40 09/05/16 08:22 ([place] 5-325 Mg) 1 tab Q6H PRN TUBE 06/03/16 03:00 08/02/16 15:11 (Lactinex) 1 tab TID PEG 06/07/16 13:00 09/05/16 13:00 (Heparin Inj) 5,000 units Q8HR SQ 06/11/16 14:00 09/05/16 13:54 (Baciguent Oint) 1 applic BID TOP 07/20/16 10:00 09/04/16 07:59 (Protonix Inj) 40 mg Q12H IV PUSH 07/30/16 10:15 09/05/16 09:56 ([place]) 1 spray BID NASAL 08/01/16 21:00 09/05/16 08:38 (Cardizem) 30 mg QID PEG 08/16/16 13:00 09/05/16 13:00 (Trimox) 500 mg Q8HR PO 08/22/16 22:00 09/05/16 13:55 (Lopressor) 75 mg BID PO 08/23/16 21:00 09/05/16 12:30 (Colace Liq) 100 mg BID PO 08/30/16 21:00 09/05/16 08:39 (Senokot) 17.2 mg DAILY PO 08/30/16 14:00 09/05/16 08:22 (Lactulose Liq) 30 ml DAILY PO 09/02/16 15:30 09/05/16 08:22 (Tears Naturale Opth Soln) 1 drop BID EACH EYE 09/05/16 21:00 Date of Insertion: Aug 03, 2016 A/P Problem List: (1) CVA (cerebral vascular accident) ICD Code: I63.9 Status: Acute (2) A-fib ICD Code: I48.91 Status: Chronic (3) DM (diabetes mellitus) ICD Code: E11.9 Status: Chronic Assessment and Plan 1. 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 Patient is nonverbal. Continue Keppra for seizure prophylaxis. PT/OT signed off as patient is unable to participate. 2. Chronic respiratory failure: Secondary to CVA. Status post tracheostomy. Continue pulmonary toilet and bronchodilators as needed. Continue trach care, suctioning. Levsin as needed. On 28% FiO2 09/05. 3. Atrial fibrillation: Continue rate control with Cardizem and metoprolol. Echocardiogram in November 2015 shows preserved ejection fraction. Coumadin discontinued secondary to bleeding. Continue aspirin and prophylactic heparin dose. HR well controlled 09/05. 4. History of non-Hodgkin's lymphoma: Status post brain biopsy on December 13 by neurosurgery. Pathology consistent with acute infarct without evidence of lymphoma. Oncology signed off. 5. Diabetes mellitus: Hemoglobin A1c is 7. Continue Levemir. Monitor Accu-Cheks and cover with sliding scale insulin. Glucose well controlled 09/05. 6. Decubitus ulcer stage IV: Continue wound care, twice-daily dressing changes. Wound care recommendations. Continue pressure relief measures including turning and positioning. Patient's family has declined a diverting colostomy. Wound culture growing Klebsiella. Antibiotics per infectious disease. Status post wide excision of sacral skin and biopsy of the cavity lining with debridement on 07/22/16. 7. Gastric ulcer, reflux esophagitis: EGD on 07/30/16 showed gastric ulcers. Appreciate GI recommendations. Continue PPI. H&H stable. 8. UTI pseudomonas aeruginosa treated with abx . Repeat Ucx 08/28/16 negative. 9. Constipation: The pt has been noted to be straining when having bowel movements. Increase bowel regimen. KUB with mild constipation 08/31. Added lactulose 09/02. FEN: Continue Nepro tube feeds. Decrease to 60 ml/hr 09/04 because of constant bloating. Follow up with dietary recommendations. Continue free water flushes. Supplement potassium. DVT prophylaxis: SCDs. Discharge Planning Awaiting clinical improvement. Problem Qualifiers (1) DM (diabetes mellitus): Qualified Code: E11.9 - Type 2 diabetes mellitus without complications Gerald Calhoun DO Sep 05, 2016 15:15
[2016-09-05] MEDS: PARoxetine HCL SUSP 20 MG/10 ML UDC PEG SCH (18:14)
[2016-09-05] MEDS: ARTIFICIAL TEARS OPTH SOLN 15 ML BTL EACH EYE SCH (23:06)
[2016-09-06] VITALS (8 sets, daily range): BP systolic 107–125; BP diastolic 64–78; PULSE 76–100; RESP 18–22; TEMP 96.3–98; O2SAT 97–100
[2016-09-06] MEDS: ACETAMINOPHEN/HYDROcodone 325 MG/5 MG TAB PEG SCH ×5 (00:25→23:30)
[2016-09-06] MEDS: FREE WATER TUBE SCH ×7 (03:32→23:30)
[2016-09-06] MEDS: INSULIN ASPART SUPPLEMENTAL SCALE SQ SCH (07:00)
[2016-09-06] MEDS: AMOXICILLIN (TRIHYDRATE) 500 MG CAP PO SCH ×3 (07:20→22:41)
[2016-09-06] MEDS: ACETIC ACID 0.25% SOLN 1000 ML IRR BTL IRRIGATION SCH ×3 (07:21→22:46)
[2016-09-06] MEDS: HEPARIN SODIUM - SQ 10,000 UNITS/ML VIAL SQ SCH ×3 (07:23→22:41)
[2016-09-06] MEDS: ARTIFICIAL TEARS OPTH SOLN 15 ML BTL EACH EYE SCH ×2 (09:00→22:42)
[2016-09-06] MEDS: NYSTATIN 100,000 U/GM PWD 15 GM BTL TOPICAL SCH ×2 (09:00→22:44)
[2016-09-06] MEDS: DILTIAZEM HCL 30 MG TAB PEG SCH ×4 (09:00→22:42)
[2016-09-06] MEDS: BACITRACIN TOP OINT 15 GM TUBE TOP SCH ×2 (09:00→22:43)
[2016-09-06] MEDS: SODIUM CHLORIDE 0.65% NASAL SPRAY 45 ML BTL NASAL SCH ×2 (09:00→21:00)
[2016-09-06] MEDS: METOPROLOL TARTRATE 50 MG TAB PO SCH ×3 (09:00→22:42)
[2016-09-06] MEDS: levETIRAcetam 500 MG/5 ML UDC TUBE SCH ×2 (09:17→22:42)
[2016-09-06] MEDS: DOCUSATE SODIUM 100 MG/10 ML UDC PO SCH ×2 (09:17→22:40)
[2016-09-06] MEDS: LACTULOSE SYRUP 20 GM/30 ML CUP PO SCH (09:17)
[2016-09-06] MEDS: POTASSIUM CHLORIDE 25 MEQ EFFERVESCENT TAB TUBE SCH (09:17)
[2016-09-06] MEDS: SENNOSIDES 8.6 MG TAB PO SCH (09:18)
[2016-09-06] MEDS: ASPIRIN 325 MG TAB TUBE SCH (09:18)
[2016-09-06] MEDS: LACTOBACILLUS ACIDOPHILUS TAB PEG SCH ×3 (09:18→18:00)
[2016-09-06] MEDS: PANTOPRAZOLE SODIUM 40 MG VIAL IV PUSH SCH ×2 (10:15→22:41)
--- NOTE | 2016-09-06 14:42 | HHI.PR ---
Subjective Remarks The patient was resting comfortably. Family at the bedside. No acute complaints at this time. No events reported. Objective Vitals Vital Signs Date Time Temp Pulse Resp B/P Pulse Ox O2 Delivery O2 Flow Rate FiO2 09/06/16 13:01 97 T-piece 28 09/06/16 13:01 97 T-piece 28 09/06/16 12:07 96.9 87 18 122/75 99 09/06/16 08:28 97.9 79 18 116/75 100 09/06/16 05:45 97.9 87 22 109/69 98 09/06/16 01:25 19 09/06/16 00:40 98.0 80 19 125/64 98 09/05/16 21:45 97.9 87 20 133/78 99 09/05/16 21:10 98 Trach Collar 6.00 28 T-Piece 09/05/16 20:20 81 I/O 09/05/16 09/05/16 09/05/16 09/06/16 09/06/16 09/06/16 07:00 15:00 23:00 07:00 15:00 23:00 Intake Total 1494 ml 0 ml 1398 ml Output Total 600 ml 400 ml 300 ml 900 ml Balance 894 ml -400 ml -300 ml 498 ml Intake Oral 0 ml 0 ml Tube Feeding 1054 ml 998 ml Other 440 ml 400 ml Output Urine Total 600 ml 400 ml 300 ml 900 ml # Bowel Movements 0 1 0 1 Imaging Last Impressions Abdomen X-Ray 08/31/16 0000 Signed Impressions: Service Date/Time: Wednesday, August 31, 2016 16:36 - CONCLUSION: 1. No acute findings. Mild constipation. Durga Dotson MD Chest X-Ray 08/23/16 0000 Signed Impressions: Service Date/Time: Tuesday, August 23, 2016 16:06 - CONCLUSION: Minimal basilar right lung opacity likely representing atelectasis. Kwasi James MD Tube Change 08/14/16 0000 Signed Impressions: Service Date/Time: Sunday, August 14, 2016 15:11 - CONCLUSION: Uncomplicated gastrojejunostomy tube exchange as above. Moises Ramírez MD Abdomen/Pelvis CT 04/12/16 0000 Signed Impressions: Service Date/Time: Tuesday, April 12, 2016 20:52 - CONCLUSION: 1. 6.4 cm necrotic mass or abscess in the soft tissues posteriorly just below the sacrum associated with some bony destructive change of the lower most sacrum and coccyx with inflammatory changes extending into the ischiorectal fossa and into the presacral retroperitoneum predominantly on the left side. There is associated fairly marked mural thickening of the anal verge and rectum. 2. There is gastrostomy and Arevalo catheter present. Stable abdominal aortic aneurysm. Durga Dotson MD Head Magnetic Resonance Angiography 03/05/16 0000 Signed Impressions: Service Date/Time: Saturday, March 05, 2016 09:26 - CONCLUSION: Persistent high-grade subtotal occlusive stenotic lesions in the distal right vertebral artery and proximal basilar artery with significant improvement in flow and recanalization following initial presentation of thrombosis. Stable interstitial circulation without significant stenosis. 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 There is decreasing restricted diffusion and increasing loss of volume characteristic of a subacute to chronic infarct. No evidence of acute infarct, acute hemorrhage mass or edema. Ernesto Kulkarni MD Head CT 01/16/16 0000 Signed Impressions: Service Date/Time: Saturday, January 16, 2016 10:51 - CONCLUSION: No extensive low density in the brainstem colin more prominent in the right the left extending into the right middle cerebellar peduncle consistent with brainstem infarct nonhemorrhagic acute Wellington West MD Neck Magnetic Resonance Angiography 12/22/15 1445 Signed Impressions: Service Date/Time: Tuesday, December 22, 2015 09:22 - CONCLUSION: Variant origin of the left vertebral artery from the aortic arch. No evidence of carotid stenosis. Glen Zamora MD Head/Brain Mag Res Venography 12/22/15 0000 Signed Impressions: Service Date/Time: Tuesday, December 22, 2015 09:22 - CONCLUSION: Normal MRV. Jonel Jones Jr., MD Objective Remarks GENERAL: Resting comfortably. SKIN: Warm and dry. HEAD: Normocephalic. EYES: No scleral icterus. No injection or drainage. NECK: trach in place. CARDIOVASCULAR: Regular rate and rhythm without murmurs, gallops, or rubs. RESPIRATORY: Breath sounds equal bilaterally. No accessory muscle use. GASTROINTESTINAL: Abdomen soft, non-tender, nondistended. PEG tube in place. EXTREMITIES: No edema. NEUROLOGICAL: Awake, alert. Does follow some commands. Procedures 01/02/16 PEG placement 01/02/16 tracheostomy 07/22/2016 Wide excision of sacral skin wound, biopsy of the cavity lining and debridement. PEG tube replacement 07/29/16 Medications and IVs Current Medications Medications (Trade) Dose Ordered Sig/Junior Route Start Time Stop Time Status Last Admin (NS Flush) 2 ml UNSCH PRN IVF 12/21/15 06:00 09/05/16 08:32 (Keppra Liq) 500 mg Q12HR TUBE 12/27/15 21:00 09/06/16 09:17 (Tylenol 650 Mg/ 20 ml Liq) 650 mg Q6H PRN TUBE 12/30/15 15:15 08/23/16 12:52 (Mycostatin Powder) 1 applic Q12HR TOPICAL 01/08/16 21:00 09/06/16 09:00 (Pill Splitter) 1 ea UNSCH PRN OTHER 01/14/16 08:30 (Acetic Acid 0.25% Irr Btl) 10 ml Q8HR IRRIGATION 02/05/16 16:00 09/06/16 07:21 (Ativan Inj) 0.5 mg Q4H PRN IV PUSH 03/07/16 23:00 (Paxil Liq) 20 mg DAILY@1900 PEG 03/12/16 19:00 09/05/16 18:14 (Levemir Inj) 35 units HS SQ 03/24/16 21:00 09/05/16 23:08 (Levsin) 0.25 mg Q4H PRN G-TUBE 04/11/16 10:30 08/31/16 05:02 (Zofran Inj) 4 mg Q6HR PRN IV PUSH 04/14/16 19:45 08/10/16 10:16 (Free Water) 200 ml Q4HR TUBE 04/16/16 12:00 09/06/16 12:00 (Norden 5-325 Mg) 1 tab Q6HR PEG 04/18/16 18:00 09/06/16 11:32 (D50w (Vial) Inj) 25 ml UNSCH PRN IV 04/20/16 12:00 (Glucagon Inj) 1 mg UNSCH PRN IM/SQ 04/20/16 12:00 (K-Lyte Cl Eff) 25 meq DAILY TUBE 05/28/16 09:00 09/06/16 09:17 (Aspirin) 325 mg DAILY TUBE 05/27/16 11:40 09/06/16 09:18 (Norden 5-325 Mg) 1 tab Q6H PRN TUBE 06/03/16 03:00 08/02/16 15:11 (Lactinex) 1 tab TID PEG 06/07/16 13:00 09/06/16 11:31 (Heparin Inj) 5,000 units Q8HR SQ 06/11/16 14:00 09/06/16 14:14 (Baciguent Oint) 1 applic BID TOP 07/20/16 10:00 09/05/16 23:10 (Protonix Inj) 40 mg Q12H IV PUSH 07/30/16 10:15 09/05/16 23:11 (Tehama Angel [place]) 1 spray BID NASAL 08/01/16 21:00 09/06/16 09:00 (Cardizem) 30 mg QID PEG 08/16/16 13:00 09/06/16 11:31 (Trimox) 500 mg Q8HR PO 08/22/16 22:00 09/06/16 14:00 (Lopressor) 75 mg BID PO 08/23/16 21:00 09/06/16 11:35 (Colace Liq) 100 mg BID PO 08/30/16 21:00 09/06/16 09:17 (Senokot) 17.2 mg DAILY PO 08/30/16 14:00 09/06/16 09:18 (Lactulose Liq) 30 ml DAILY PO 09/02/16 15:30 09/06/16 09:17 (Tears Naturale Opth Soln) 1 drop BID EACH EYE 09/05/16 21:00 09/06/16 09:00 Date of Insertion: Aug 03, 2016 A/P Problem List: (1) CVA (cerebral vascular accident) ICD Code: I63.9 Status: Acute (2) A-fib ICD Code: I48.91 Status: Chronic (3) DM (diabetes mellitus) ICD Code: E11.9 Status: Chronic Assessment and Plan 1. 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 Patient is nonverbal. Continue Keppra for seizure prophylaxis. PT/OT signed off as patient is unable to participate. 2. Chronic respiratory failure: Secondary to CVA. Status post tracheostomy. Continue pulmonary toilet and bronchodilators as needed. Continue trach care, suctioning. Levsin as needed. On 28% FiO2 09/06. 3. Atrial fibrillation: Continue rate control with Cardizem and metoprolol. Echocardiogram in November 2015 shows preserved ejection fraction. Coumadin discontinued secondary to bleeding. Continue aspirin and prophylactic heparin dose. HR well controlled 09/06. 4. History of non-Hodgkin's lymphoma: Status post brain biopsy on December 13 by neurosurgery. Pathology consistent with acute infarct without evidence of lymphoma. Oncology signed off. 5. Diabetes mellitus: Hemoglobin A1c is 7. Continue Levemir. Monitor Accu-Cheks and cover with sliding scale insulin. Glucose well controlled 09/06. 6. Decubitus ulcer stage IV: Continue wound care, twice-daily dressing changes. Wound care recommendations. Continue pressure relief measures including turning and positioning. Patient's family has declined a diverting colostomy. Wound culture growing Klebsiella. Antibiotics per infectious disease. Status post wide excision of sacral skin and biopsy of the cavity lining with debridement on 07/22/16. 7. Gastric ulcer, reflux esophagitis: EGD on 07/30/16 showed gastric ulcers. Appreciate GI recommendations. Continue PPI. H&H stable. Check CBC 09/07. 8. UTI pseudomonas aeruginosa treated with abx . Repeat Ucx 08/28/16 negative. 9. Constipation: The pt has been noted to be straining when having bowel movements. Increase bowel regimen. KUB with mild constipation 08/31. Added lactulose 09/02. FEN: Continue Nepro tube feeds. Decrease to 60 ml/hr 09/04 because of constant bloating. Follow up with dietary recommendations. Continue free water flushes. Supplement potassium. DVT prophylaxis: SCDs. Discharge Planning Awaiting clinical improvement. Problem Qualifiers (1) DM (diabetes mellitus): Qualified Code: E11.9 - Type 2 diabetes mellitus without complications Gerald Calhoun DO Sep 06, 2016 14:42
[2016-09-06] MEDS: PARoxetine HCL SUSP 20 MG/10 ML UDC PEG SCH (18:42)
[2016-09-06] MEDS: INSULIN DETEMIR 100 UNITS/ML VIAL SQ SCH (22:41)
[2016-09-07] VITALS (7 sets, daily range): BP systolic 106–134; BP diastolic 64–84; PULSE 75–93; RESP 18–22; TEMP 96.8–98.8; O2SAT 97–100
[2016-09-07] MEDS: FREE WATER TUBE SCH ×5 (04:00→20:00)
[2016-09-07] MEDS: ACETAMINOPHEN/HYDROcodone 325 MG/5 MG TAB PEG SCH ×4 (04:28→22:55)
[2016-09-07] MEDS: INSULIN ASPART SUPPLEMENTAL SCALE SQ SCH (06:43)
[2016-09-07] MEDS: HEPARIN SODIUM - SQ 10,000 UNITS/ML VIAL SQ SCH ×3 (06:45→22:56)
[2016-09-07] MEDS: AMOXICILLIN (TRIHYDRATE) 500 MG CAP PO SCH ×3 (06:45→22:54)
[2016-09-07] MEDS: ACETIC ACID 0.25% SOLN 1000 ML IRR BTL IRRIGATION SCH ×3 (06:45→22:00)
[2016-09-07 06:49] LABS: HEMATOCRIT 31.7 % (39.0-51.0); MEAN CELL VOLUME 76.6 FL (80.0-100.0); MEAN CORPUSCULAR HEMOGLOBIN 23.9 PG (27.0-34.0); MEAN CORPUSCULAR HGB CONC 31.3 % (32.0-36.0); PLATELET COUNT 223 TH/MM3 (150-450); RED BLOOD COUNT 4.15 MIL/MM3 (4.50-5.90); RED CELL DISTRIBUTION WIDTH 20.5 % (11.6-17.2); WHITE BLOOD COUNT 4.9 TH/MM3 (4.0-11.0)
[2016-09-07 06:56] LABS: REVIEW FLAG FINAL
[2016-09-07 07:06] LABS: BICARBONATE 28.2 MEQ/L (21.0-32.0); MAGNESIUM 1.9 MG/DL (1.5-2.5); POTASSIUM 4.1 MEQ/L (3.5-5.1)
[2016-09-07] MEDS: DOCUSATE SODIUM 100 MG/10 ML UDC PO SCH ×3 (08:29→22:55)
[2016-09-07] MEDS: SENNOSIDES 8.6 MG TAB PO SCH (08:29)
[2016-09-07] MEDS: ASPIRIN 325 MG TAB TUBE SCH (08:30)
[2016-09-07] MEDS: POTASSIUM CHLORIDE 25 MEQ EFFERVESCENT TAB TUBE SCH (08:30)
[2016-09-07] MEDS: DILTIAZEM HCL 30 MG TAB PEG SCH ×4 (08:31→22:55)
[2016-09-07] MEDS: LACTULOSE SYRUP 20 GM/30 ML CUP PO SCH ×2 (08:31→16:34)
[2016-09-07] MEDS: LACTOBACILLUS ACIDOPHILUS TAB PEG SCH ×3 (08:31→16:31)
[2016-09-07] MEDS: METOPROLOL TARTRATE 50 MG TAB PO SCH ×2 (08:31→22:55)
[2016-09-07] MEDS: levETIRAcetam 500 MG/5 ML UDC TUBE SCH ×2 (08:31→22:54)
[2016-09-07] MEDS: SODIUM CHLORIDE 0.65% NASAL SPRAY 45 ML BTL NASAL SCH ×2 (08:32→22:57)
[2016-09-07] MEDS: ARTIFICIAL TEARS OPTH SOLN 15 ML BTL EACH EYE SCH ×2 (08:32→22:57)
[2016-09-07] MEDS: BACITRACIN TOP OINT 15 GM TUBE TOP SCH ×2 (08:33→22:58)
[2016-09-07] MEDS: NYSTATIN 100,000 U/GM PWD 15 GM BTL TOPICAL SCH ×2 (08:33→22:58)
[2016-09-07] MEDS: PANTOPRAZOLE SODIUM 40 MG VIAL IV PUSH SCH ×2 (08:34→22:54)
--- NOTE | 2016-09-07 13:14 | HHI.PR ---
Subjective Remarks no change on o2 , o2 SAT 96% trach ok Objective Vital Signs Date Time Temp Pulse Resp B/P Pulse Ox O2 Delivery O2 Flow Rate FiO2 09/07/16 12:00 96.8 75 19 118/64 98 09/07/16 10:37 97 T-piece 28 09/07/16 10:37 97 T-piece 28 09/07/16 09:03 Trach Collar 6.00 28 T-Piece 09/07/16 08:00 97.4 82 22 132/66 99 09/07/16 06:15 97.9 85 18 106/66 98 09/07/16 00:00 98.8 88 19 115/75 99 09/06/16 21:45 97.6 100 19 118/78 98 09/06/16 19:00 T-Piece 09/06/16 16:10 96.3 76 18 107/72 99 I/O 09/06/16 09/06/16 09/06/16 09/07/16 09/07/16 09/07/16 07:00 15:00 23:00 07:00 15:00 23:00 Intake Total 1398 ml 0 ml 0 ml Output Total 900 ml 1800 ml 600 ml Balance 498 ml -1800 ml -600 ml Intake Oral 0 ml 0 ml 0 ml Tube Feeding 998 ml Other 400 ml Output Urine Total 900 ml 1800 ml 600 ml Bladder Scan Volume Amount 392 ml # Bowel Movements 1 2 0 Result Diagram: 09/07/16 0459 09/07/16 0459 Procedures 01/02/16 PEG placement 01/02/16 tracheostomy 07/22/2016 Wide excision of sacral skin wound, biopsy of the cavity lining and debridement. PEG tube replacement 07/29/16 Objective Remarks GENERAL: SKIN: Warm and dry. HEAD: Atraumatic. Normocephalic. EYES: Pupils equal and round. No scleral icterus. No injection or drainage. ENT: No nasal bleeding or discharge. Mucous membranes pink and moist. NECK: Trachea midline. No JVD. TRACH. [place] CARDIOVASCULAR: Regular rate and rhythm. RESPIRATORY: No accessory muscle use. Clear to auscultation. Breath sounds equal bilaterally. GASTROINTESTINAL: Abdomen soft, non-tender, nondistended. Hepatic and splenic margins not palpable. MUSCULOSKELETAL: Extremities without clubbing, cyanosis, or edema. No obvious deformities. NEUROLOGICAL: Awake and alert. No obvious cranial nerve deficits. Motor grossly within normal limits. Five out of 5 muscle strength in the arms and legs. Normal speech. PSYCHIATRIC: Appropriate mood and affect; insight and judgment normal. Assessment and Plan Assessment and Plan respiratory failure CVA S/P TRACHEOSTOMY PLAN O2 NEEDED PULM. TOILET Brandon Taylor MD Sep 07, 2016 13:14
--- NOTE | 2016-09-07 15:22 | HHI.PR ---
Subjective Remarks Laying in bed, open eyes, discussed with mother, no significant acute issue Objective Vitals Vital Signs Date Time Temp Pulse Resp B/P Pulse Ox O2 Delivery O2 Flow Rate FiO2 09/07/16 12:00 96.8 75 19 118/64 98 09/07/16 10:37 97 T-piece 28 09/07/16 10:37 97 T-piece 28 09/07/16 09:03 Trach Collar 6.00 28 T-Piece 09/07/16 08:00 97.4 82 22 132/66 99 09/07/16 06:15 97.9 85 18 106/66 98 09/07/16 00:00 98.8 88 19 115/75 99 09/06/16 21:45 97.6 100 19 118/78 98 09/06/16 19:00 T-Piece 28 09/06/16 16:10 96.3 76 18 107/72 99 I/O 09/06/16 09/06/16 09/06/16 09/07/16 09/07/16 09/07/16 07:00 15:00 23:00 07:00 15:00 23:00 Intake Total 1398 ml 0 ml 0 ml 306 ml Output Total 900 ml 1800 ml 600 ml Balance 498 ml -1800 ml -600 ml 306 ml Intake Oral 0 ml 0 ml 0 ml Tube Feeding 998 ml 306 ml Other 400 ml Output Urine Total 900 ml 1800 ml 600 ml Bladder Scan Volume Amount 392 ml # Bowel Movements 1 2 0 Result Diagram: 09/07/16 0459 09/07/16 0459 Objective Remarks Gen.: 60 years old bedridden patient, NEUROLOGICAL: Eyes open on and off, does not track, . No movement of all 4 extremities. Procedures 01/02/16 PEG placement 01/02/16 tracheostomy 07/22/2016 Wide excision of sacral skin wound, biopsy of the cavity lining and debridement. PEG tube replacement 07/29/16 Date of Insertion: Aug 03, 2016 A/P Problem List: (1) CVA (cerebral vascular accident) ICD Code: I63.9 Status: Acute (2) A-fib ICD Code: I48.91 Status: Chronic (3) DM (diabetes mellitus) ICD Code: E11.9 Status: Chronic Assessment and Plan 1. 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 Patient is nonverbal. Continue Keppra for seizure prophylaxis. PT/OT signed off as patient is unable to participate. 2. Chronic respiratory failure: Secondary to CVA. Status post tracheostomy. Continue pulmonary toilet and bronchodilators as needed. Continue trach care, suctioning. Levsin as needed. On 28% FiO2 09/06. 3. Atrial fibrillation: Continue rate control with Cardizem and metoprolol. Echocardiogram in November 2015 shows preserved ejection fraction. Coumadin discontinued secondary to bleeding. Continue aspirin and prophylactic heparin dose. HR well controlled 09/06. 4. History of non-Hodgkin's lymphoma: Status post brain biopsy on December 13 by neurosurgery. Pathology consistent with acute infarct without evidence of lymphoma. Oncology signed off. 5. Diabetes mellitus: Hemoglobin A1c is 7. Continue Levemir. Monitor Accu-Cheks and cover with sliding scale insulin. Glucose well controlled 09/06. 6. Decubitus ulcer stage IV: Continue wound care, twice-daily dressing changes. Wound care recommendations. Continue pressure relief measures including turning and positioning. Patient's family has declined a diverting colostomy. Wound culture growing Klebsiella. Antibiotics per infectious disease. Status post wide excision of sacral skin and biopsy of the cavity lining with debridement on 07/22/16. 7. Gastric ulcer, reflux esophagitis: EGD on 07/30/16 showed gastric ulcers. Appreciate GI recommendations. Continue PPI. H&H stable. Check CBC 09/07. 8. UTI pseudomonas aeruginosa treated with abx . Repeat Ucx 08/28/16 negative. 9. Constipation: The pt has been noted to be straining when having bowel movements. Increase bowel regimen. KUB with mild constipation 08/31. Added lactulose 09/02. FEN: Continue Nepro tube feeds. Decrease to 60 ml/hr 09/04 because of constant bloating. Follow up with dietary recommendations. Continue free water flushes. Supplement potassium. DVT prophylaxis: SCDs. Problem Qualifiers (1) DM (diabetes mellitus): Qualified Code: E11.9 - Type 2 diabetes mellitus without complications Terrence Gonzalez MD Sep 07, 2016 15:22
[2016-09-07] MEDS: PARoxetine HCL SUSP 20 MG/10 ML UDC PEG SCH (18:43)
[2016-09-07] MEDS: INSULIN DETEMIR 100 UNITS/ML VIAL SQ SCH (22:56)
[2016-09-08] VITALS (12 sets, daily range): BP systolic 109–124; BP diastolic 59–79; PULSE 75–93; RESP 19–20; TEMP 97.4–98; O2SAT 97–99
[2016-09-08] MEDS: FREE WATER TUBE SCH ×6 (04:00→20:00)
[2016-09-08] MEDS: ACETAMINOPHEN/HYDROcodone 325 MG/5 MG TAB PEG SCH ×3 (05:28→17:40)
[2016-09-08] MEDS: ACETIC ACID 0.25% SOLN 1000 ML IRR BTL IRRIGATION SCH ×3 (05:28→22:52)
[2016-09-08] MEDS: HEPARIN SODIUM - SQ 10,000 UNITS/ML VIAL SQ SCH ×3 (05:29→22:52)
[2016-09-08] MEDS: AMOXICILLIN (TRIHYDRATE) 500 MG CAP PO SCH ×3 (05:29→21:05)
[2016-09-08] MEDS: INSULIN ASPART SUPPLEMENTAL SCALE SQ SCH (07:00)
[2016-09-08] MEDS: LACTULOSE SYRUP 20 GM/30 ML CUP PO SCH (08:24)
[2016-09-08] MEDS: DOCUSATE SODIUM 100 MG/10 ML UDC PO SCH ×2 (08:25→21:04)
[2016-09-08] MEDS: ASPIRIN 325 MG TAB TUBE SCH (08:25)
[2016-09-08] MEDS: DILTIAZEM HCL 30 MG TAB PEG SCH ×4 (08:25→21:06)
[2016-09-08] MEDS: SENNOSIDES 8.6 MG TAB PO SCH (08:25)
[2016-09-08] MEDS: POTASSIUM CHLORIDE 25 MEQ EFFERVESCENT TAB TUBE SCH (08:25)
[2016-09-08] MEDS: levETIRAcetam 500 MG/5 ML UDC TUBE SCH ×2 (08:25→21:04)
[2016-09-08] MEDS: LACTOBACILLUS ACIDOPHILUS TAB PEG SCH ×3 (08:25→17:39)
[2016-09-08] MEDS: METOPROLOL TARTRATE 50 MG TAB PO SCH ×2 (08:26→21:05)
[2016-09-08] MEDS: ARTIFICIAL TEARS OPTH SOLN 15 ML BTL EACH EYE SCH ×2 (08:27→21:07)
[2016-09-08] MEDS: SODIUM CHLORIDE 0.65% NASAL SPRAY 45 ML BTL NASAL SCH ×2 (08:27→21:00)
[2016-09-08] MEDS: NYSTATIN 100,000 U/GM PWD 15 GM BTL TOPICAL SCH ×2 (08:28→21:06)
[2016-09-08] MEDS: BACITRACIN TOP OINT 15 GM TUBE TOP SCH ×2 (08:28→21:06)
[2016-09-08] MEDS: PANTOPRAZOLE SODIUM 40 MG VIAL IV PUSH SCH (08:30)
--- NOTE | 2016-09-08 13:12 | HHI.PR ---
Subjective Remarks PEG tube clogged up again, chest with the nurse on the charge nurse for the reason of the frequent Objective Vitals Vital Signs Date Time Temp Pulse Resp B/P Pulse Ox O2 Delivery O2 Flow Rate FiO2 09/08/16 12:00 97.4 82 19 109/59 98 09/08/16 09:09 Trach Collar 6.00 28 T-Piece 09/08/16 09:01 97 T-piece 5.00 28 09/08/16 08:00 97.4 79 20 118/71 99 09/08/16 04:13 97.9 90 20 124/76 98 09/08/16 02:36 83 09/08/16 00:51 98.0 93 20 123/74 98 09/07/16 23:55 19 09/07/16 21:30 98 Trach Collar 6.00 28 T-Piece 09/07/16 20:50 97.9 93 20 134/84 99 09/07/16 18:41 T-piece 6.00 28 09/07/16 18:41 T-piece 6.00 28 09/07/16 16:00 97.8 85 20 113/70 100 I/O 09/07/16 09/07/16 09/07/16 09/08/16 09/08/16 09/08/16 07:00 15:00 23:00 07:00 15:00 23:00 Intake Total 0 ml 306 ml Output Total 600 ml 950 ml 350 ml 350 ml Balance -600 ml -644 ml -350 ml -350 ml Intake Oral 0 ml Tube Feeding 306 ml Output Urine Total 600 ml 950 ml 350 ml 350 ml # Bowel Movements 0 1 Result Diagram: 09/07/16 0459 09/07/16 0459 Objective Remarks Gen.: 60 years old bedridden patient, NEUROLOGICAL: Eyes open on and off, does not track, . No movement of all 4 extremities. Procedures 01/02/16 PEG placement 01/02/16 tracheostomy 07/22/2016 Wide excision of sacral skin wound, biopsy of the cavity lining and debridement. PEG tube replacement 07/29/16 Date of Insertion: Aug 03, 2016 A/P Problem List: (1) CVA (cerebral vascular accident) ICD Code: I63.9 Status: Acute (2) A-fib ICD Code: I48.91 Status: Chronic (3) DM (diabetes mellitus) ICD Code: E11.9 Status: Chronic Assessment and Plan 09/08: Acute clocked up again, discussed with the nurse and the charge nurse to try to resolve the issue A/P: 1. 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 Patient is nonverbal. Continue Keppra for seizure prophylaxis. PT/OT signed off as patient is unable to participate. 2. Chronic respiratory failure: Secondary to CVA. Status post tracheostomy. Continue pulmonary toilet and bronchodilators as needed. Continue trach care, suctioning. Levsin as needed. On 28% FiO2 09/06. 3. Atrial fibrillation: Continue rate control with Cardizem and metoprolol. Echocardiogram in November 2015 shows preserved ejection fraction. Coumadin discontinued secondary to bleeding. Continue aspirin and prophylactic heparin dose. HR well controlled 09/06. 4. History of non-Hodgkin's lymphoma: Status post brain biopsy on December 13 by neurosurgery. Pathology consistent with acute infarct without evidence of lymphoma. Oncology signed off. 5. Diabetes mellitus: Hemoglobin A1c is 7. Continue Levemir. Monitor Accu-Cheks and cover with sliding scale insulin. Glucose well controlled 09/06. 6. Decubitus ulcer stage IV: Continue wound care, twice-daily dressing changes. Wound care recommendations. Continue pressure relief measures including turning and positioning. Patient's family has declined a diverting colostomy. Wound culture growing Klebsiella. Antibiotics per infectious disease. Status post wide excision of sacral skin and biopsy of the cavity lining with debridement on 07/22/16. 7. Gastric ulcer, reflux esophagitis: EGD on 07/30/16 showed gastric ulcers. Appreciate GI recommendations. Continue PPI. H&H stable. Check CBC 09/07. 8. UTI pseudomonas aeruginosa treated with abx . Repeat Ucx 08/28/16 negative. 9. Constipation: The pt has been noted to be straining when having bowel movements. Increase bowel regimen. KUB with mild constipation 08/31. Added lactulose 09/02. FEN: Continue Nepro tube feeds. Decrease to 60 ml/hr 09/04 because of constant bloating. Follow up with dietary recommendations. Continue free water flushes. Supplement potassium. DVT prophylaxis: SCDs. Problem Qualifiers (1) DM (diabetes mellitus): Qualified Code: E11.9 - Type 2 diabetes mellitus without complications Terrence Gonzalez MD Sep 08, 2016 13:12
[2016-09-08] MEDS: PARoxetine HCL SUSP 20 MG/10 ML UDC PEG SCH (17:42)
[2016-09-08] MEDS: INSULIN DETEMIR 100 UNITS/ML VIAL SQ SCH (21:05)
[2016-09-09] VITALS (11 sets, daily range): BP systolic 102–125; BP diastolic 60–81; PULSE 73–87; RESP 20; TEMP 96.4–97.7; O2SAT 96–100
[2016-09-09] MEDS: PANTOPRAZOLE SODIUM 40 MG VIAL IV PUSH SCH ×3 (02:11→23:19)
[2016-09-09] MEDS: ACETAMINOPHEN/HYDROcodone 325 MG/5 MG TAB PEG SCH ×4 (02:12→23:26)
[2016-09-09] MEDS: FREE WATER TUBE SCH ×5 (04:00→23:22)
[2016-09-09] MEDS: INSULIN ASPART SUPPLEMENTAL SCALE SQ SCH (07:00)
[2016-09-09] MEDS: AMOXICILLIN (TRIHYDRATE) 500 MG CAP PO SCH ×3 (07:01→23:21)
[2016-09-09] MEDS: HEPARIN SODIUM - SQ 10,000 UNITS/ML VIAL SQ SCH ×3 (07:01→23:20)
[2016-09-09] MEDS: ACETIC ACID 0.25% SOLN 1000 ML IRR BTL IRRIGATION SCH ×3 (07:02→23:22)
[2016-09-09] MEDS: DILTIAZEM HCL 30 MG TAB PEG SCH ×4 (08:51→23:20)
[2016-09-09] MEDS: levETIRAcetam 500 MG/5 ML UDC TUBE SCH ×2 (08:51→23:18)
[2016-09-09] MEDS: METOPROLOL TARTRATE 50 MG TAB PO SCH ×2 (08:52→23:21)
--- NOTE | 2016-09-09 11:51 | HHI.PR ---
Subjective Remarks Plan for PEG tube assessment by IR today otherwise no acute issue Objective Vitals Vital Signs Date Time Temp Pulse Resp B/P Pulse Ox O2 Delivery O2 Flow Rate FiO2 09/09/16 08:28 96.9 86 20 120/78 98 09/09/16 04:40 97.7 87 20 125/81 100 09/09/16 03:39 99 T-piece 5.00 28 09/09/16 03:14 18 09/09/16 02:25 98 Trach Collar 6.00 28 T-Piece 09/09/16 00:30 97.3 80 20 122/60 98 09/09/16 00:19 81 09/08/16 20:50 97.6 82 20 120/66 98 09/08/16 18:25 98 T-piece 6.00 28 09/08/16 18:24 98 T-piece 6.00 28 09/08/16 16:00 97.5 75 20 118/71 98 09/08/16 13:15 124/79 09/08/16 12:00 97.4 82 19 109/59 98 I/O 09/08/16 09/08/16 09/08/16 09/09/16 09/09/16 09/09/16 07:00 15:00 23:00 07:00 15:00 23:00 Intake Total 1940 ml Output Total 350 ml 950 ml 400 ml 650 ml Balance -350 ml -950 ml -400 ml 1290 ml Tube Feeding 1940 ml Output Urine Total 350 ml 950 ml 400 ml 650 ml # Bowel Movements 0 1 Result Diagram: 09/07/16 0459 09/07/16 0459 Objective Remarks Gen.: 60 years old bedridden patient, NEUROLOGICAL: Eyes open on and off, does not track, . No movement of all 4 extremities. Procedures 01/02/16 PEG placement 01/02/16 tracheostomy 07/22/2016 Wide excision of sacral skin wound, biopsy of the cavity lining and debridement. PEG tube replacement 07/29/16 Date of Insertion: Aug 03, 2016 A/P Problem List: (1) CVA (cerebral vascular accident) ICD Code: I63.9 Status: Acute (2) A-fib ICD Code: I48.91 Status: Chronic (3) DM (diabetes mellitus) ICD Code: E11.9 Status: Chronic Assessment and Plan 2/19: Acute clocked up again, discussed with the nurse and the charge nurse to try to resolve the issue 09/09: Plan for IR to evaluate acute today A/P: 1. 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 Patient is nonverbal. Continue Keppra for seizure prophylaxis. PT/OT signed off as patient is unable to participate. 2. Chronic respiratory failure: Secondary to CVA. Status post tracheostomy. Continue pulmonary toilet and bronchodilators as needed. Continue trach care, suctioning. Levsin as needed. On 28% FiO2 09/06. 3. Atrial fibrillation: Continue rate control with Cardizem and metoprolol. Echocardiogram in November 2015 shows preserved ejection fraction. Coumadin discontinued secondary to bleeding. Continue aspirin and prophylactic heparin dose. HR well controlled 09/06. 4. History of non-Hodgkin's lymphoma: Status post brain biopsy on December 13 by neurosurgery. Pathology consistent with acute infarct without evidence of lymphoma. Oncology signed off. 5. Diabetes mellitus: Hemoglobin A1c is 7. Continue Levemir. Monitor Accu-Cheks and cover with sliding scale insulin. Glucose well controlled 09/06. 6. Decubitus ulcer stage IV: Continue wound care, twice-daily dressing changes. Wound care recommendations. Continue pressure relief measures including turning and positioning. Patient's family has declined a diverting colostomy. Wound culture growing Klebsiella. Antibiotics per infectious disease. Status post wide excision of sacral skin and biopsy of the cavity lining with debridement on 07/22/16. 7. Gastric ulcer, reflux esophagitis: EGD on 07/30/16 showed gastric ulcers. Appreciate GI recommendations. Continue PPI. H&H stable. Check CBC 09/07. 8. UTI pseudomonas aeruginosa treated with abx . Repeat Ucx 08/28/16 negative. 9. Constipation: The pt has been noted to be straining when having bowel movements. Increase bowel regimen. KUB with mild constipation 08/31. Added lactulose 09/02. FEN: Continue Nepro tube feeds. Decrease to 60 ml/hr 09/04 because of constant bloating. Follow up with dietary recommendations. Continue free water flushes. Supplement potassium. DVT prophylaxis: SCDs. Problem Qualifiers (1) DM (diabetes mellitus): Qualified Code: E11.9 - Type 2 diabetes mellitus without complications Terrence Gonzalez MD Sep 09, 2016 11:51
--- NOTE | 2016-09-09 12:14 | PD.RAD ---
Post Procedure Progress Note Pre Procedure Diagnosis: (1) Feeding tube dysfunction Post Procedure Diagnosis: (1) Feeding tube dysfunction Procedure Date: Sep 09, 2016 Supervising Radiologist: Jonel Jones JR Proceduralist/Assist: Priya Cuba RT(R), Kait Gibbons RT(R)(CV) Anesthesia: Conscious Sedation Plan of Activity Patient to Unit: ROPU Patient Condition: Good See PACS Report for procedural detail/treatment Feeding Tube Gastro/Jejunostomy Exchange Georgian: 22 Findings: Original J tube occluded. Replaced with new 22F GJ tube. Jr. Robert,Jonel Weiss MD Sep 09, 2016 12:14
[2016-09-09] MEDS: LACTOBACILLUS ACIDOPHILUS TAB PEG SCH ×3 (13:00→17:07)
[2016-09-09] MEDS: SENNOSIDES 8.6 MG TAB PO SCH (14:30)
[2016-09-09] MEDS: ASPIRIN 325 MG TAB TUBE SCH (14:30)
[2016-09-09] MEDS: POTASSIUM CHLORIDE 25 MEQ EFFERVESCENT TAB TUBE SCH (14:30)
[2016-09-09] MEDS: DOCUSATE SODIUM 100 MG/10 ML UDC PO SCH ×2 (14:30→23:21)
[2016-09-09] MEDS: LACTULOSE SYRUP 20 GM/30 ML CUP PO SCH (14:31)
--- NOTE | 2016-09-09 14:39 | RADRPT ---
EXAM DATE/TIME: 09/09/2016 11:27 [place] COMPARISON: No previous studies available for comparison. INDICATIONS : Patient with history of CVA in need of GJ tube exchange. Current gastro- jejunostomy tube is occluded . MEDICAL HISTORY : A-Fib, HTN, Non hodgkins lymphoma, Chemotherapy, Diabetes, AMS SURGICAL HISTORY : Right occipital juan jose hole brain biopsy, Left arm surgery, GJ tube placement ENCOUNTER: Subsequent ACUITY: 1 day PAIN SCORE: 0/10 FLUORO TIME: 4.5 minutes SEDATION TIME: 30 minutes CONTRAST: 20 cc Omnipaque (iohexol) 350 MEDICATION(S): 1.) 1 mcg midazolam (Versed) IV 2.) 50 mg Fentanyl (Sublimaze) IV DEVICE(S): 1.) 22 Romans[place] Transgastric tube PROCEDURE : 1. Fluoroscopically guided gastrojejunostomy tube exchange. 2. Conscious sedation with continuous EKG and oximetry monitoring. The risks, benefits and alternatives to the procedure were explained and verbal and written consent w as obtained. The site was prepped in sterile fashion. Full sterile technique was used, including ca p, mask, sterile gloves and gown and a large sterile sheet. Hand hygiene and 2% chlorhexidine and/or betadine/alcohol prep was utilized per protocol for cutaneous antisepsis. The skin and subcutaneous tissues were infiltrated with local anesthetic solution. Evaluation of the current tube shows the jejunal port totally occluded. With fluoroscopic guidance a guidewire was passed through the previous gastrojejunostomy tube and a fresh tube was placed over the guidewire. The balloon was inflated with appropriate volume of saline. Injection of positive contr ast demonstrates good position of the gastric and jejunal lumens of the tube. Conscious sedation was performed with the prescribed dosages and duration as above. The patient mikhail ated the procedure well and there were no complications. EKG and oximetry remained stable throughout the procedure. The patient was sent to post anesthesia recovery in stable condition. CONCLUSION: Occluded jejunal port of the GJ tube. Uncomplicated gastrojejunostomy tube exchange as above. Jonel Jones Jr., MD on September 09, 2016 at 14:36 Board Certified Radiologist. This report was verified electronically.
[2016-09-09] MEDS: PARoxetine HCL SUSP 20 MG/10 ML UDC PEG SCH (19:57)
[2016-09-09] MEDS: ARTIFICIAL TEARS OPTH SOLN 15 ML BTL EACH EYE SCH ×2 (19:58→21:00)
[2016-09-09] MEDS: SODIUM CHLORIDE 0.65% NASAL SPRAY 45 ML BTL NASAL SCH (19:59)
[2016-09-09] MEDS: BACITRACIN TOP OINT 15 GM TUBE TOP SCH ×2 (19:59→23:22)
[2016-09-09] MEDS: NYSTATIN 100,000 U/GM PWD 15 GM BTL TOPICAL SCH ×2 (20:00→23:22)
[2016-09-09] MEDS: INSULIN DETEMIR 100 UNITS/ML VIAL SQ SCH (23:21)
[2016-09-10] VITALS (8 sets, daily range): BP systolic 106–133; BP diastolic 65–71; PULSE 78–100; RESP 20–22; TEMP 96.4–98.3; O2SAT 97–100
[2016-09-10] MEDS: FREE WATER TUBE SCH ×5 (03:33→20:00)
[2016-09-10] MEDS: AMOXICILLIN (TRIHYDRATE) 500 MG CAP PO SCH ×3 (07:08→22:00)
[2016-09-10] MEDS: ACETAMINOPHEN/HYDROcodone 325 MG/5 MG TAB PEG SCH ×5 (07:08→23:46)
[2016-09-10] MEDS: HEPARIN SODIUM - SQ 10,000 UNITS/ML VIAL SQ SCH ×3 (07:08→23:33)
[2016-09-10] MEDS: ACETIC ACID 0.25% SOLN 1000 ML IRR BTL IRRIGATION SCH ×3 (07:12→23:37)
[2016-09-10] MEDS: LACTOBACILLUS ACIDOPHILUS TAB PEG SCH ×3 (09:13→18:05)
[2016-09-10] MEDS: POTASSIUM CHLORIDE 25 MEQ EFFERVESCENT TAB TUBE SCH (09:13)
[2016-09-10] MEDS: SENNOSIDES 8.6 MG TAB PO SCH (09:13)
[2016-09-10] MEDS: METOPROLOL TARTRATE 50 MG TAB PO SCH ×2 (09:14→21:00)
[2016-09-10] MEDS: DOCUSATE SODIUM 100 MG/10 ML UDC PO SCH ×2 (09:14→23:34)
[2016-09-10] MEDS: ASPIRIN 325 MG TAB TUBE SCH (09:14)
[2016-09-10] MEDS: levETIRAcetam 500 MG/5 ML UDC TUBE SCH ×2 (09:14→23:34)
[2016-09-10] MEDS: DILTIAZEM HCL 30 MG TAB PEG SCH ×4 (09:14→21:00)
[2016-09-10] MEDS: LACTULOSE SYRUP 20 GM/30 ML CUP PO SCH (09:14)
[2016-09-10] MEDS: NYSTATIN 100,000 U/GM PWD 15 GM BTL TOPICAL SCH ×2 (09:14→23:35)
[2016-09-10] MEDS: BACITRACIN TOP OINT 15 GM TUBE TOP SCH ×2 (09:15→23:35)
[2016-09-10] MEDS: ARTIFICIAL TEARS OPTH SOLN 15 ML BTL EACH EYE SCH ×2 (09:15→23:36)
[2016-09-10] MEDS: SODIUM CHLORIDE 0.65% NASAL SPRAY 45 ML BTL NASAL SCH ×2 (09:15→21:00)
[2016-09-10] MEDS: PANTOPRAZOLE SODIUM 40 MG VIAL IV PUSH SCH ×2 (09:15→23:33)
--- NOTE | 2016-09-10 14:46 | HHI.PR ---
Subjective Remarks Sleeping in bed closed eyes, discussed with the mother, PEG tube was reevaluated by IR Patient afebrile overnight Objective Vitals Vital Signs Date Time Temp Pulse Resp B/P Pulse Ox O2 Delivery O2 Flow Rate FiO2 09/10/16 12:35 97.6 91 22 109/68 100 09/10/16 09:33 97 T-piece 6.00 28 09/10/16 08:06 98.3 92 22 110/67 98 09/10/16 07:01 98.3 87 21 126/68 97 09/10/16 00:32 96.4 91 21 133/71 99 09/10/16 00:26 18 09/09/16 20:39 96.6 81 20 117/70 98 09/09/16 20:32 100 Trach Collar 6.00 28 T-Piece 09/09/16 16:41 96.4 84 20 112/71 100 09/09/16 15:32 98 T-piece 28 I/O 09/09/16 09/09/16 09/09/16 09/10/16 09/10/16 09/10/16 07:00 15:00 23:00 07:00 15:00 23:00 Intake Total 1940 ml Output Total 1275 ml 400 ml 1550 ml Balance 665 ml -400 ml -1550 ml Tube Feeding 1940 ml Output Urine Total 1275 ml 400 ml 1550 ml # Bowel Movements 1 0 0 Result Diagram: 09/07/16 0459 09/07/16 0459 Objective Remarks Gen.: 60 years old bedridden patient, NEUROLOGICAL: Eyes open on and off, does not track, . No movement of all 4 extremities. Procedures 01/02/16 PEG placement 01/02/16 tracheostomy 07/22/2016 Wide excision of sacral skin wound, biopsy of the cavity lining and debridement. PEG tube replacement 07/29/16 Date of Insertion: Aug 03, 2016 A/P Problem List: (1) CVA (cerebral vascular accident) ICD Code: I63.9 Status: Acute (2) A-fib ICD Code: I48.91 Status: Chronic (3) DM (diabetes mellitus) ICD Code: E11.9 Status: Chronic Assessment and Plan 09/08: Acute clocked up again, discussed with the nurse and the charge nurse to try to resolve the issue 09/09: Plan for IR to evaluate acute today 09/10: Doing well, PEG tube functional status post reviewed by IR, discussed with the mother A/P: 1. 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 Patient is nonverbal. Continue Keppra for seizure prophylaxis. PT/OT signed off as patient is unable to participate. 2. Chronic respiratory failure: Secondary to CVA. Status post tracheostomy. Continue pulmonary toilet and bronchodilators as needed. Continue trach care, suctioning. Levsin as needed. On 28% FiO2 09/06. 3. Atrial fibrillation: Continue rate control with Cardizem and metoprolol. Echocardiogram in November 2015 shows preserved ejection fraction. Coumadin discontinued secondary to bleeding. Continue aspirin and prophylactic heparin dose. HR well controlled 09/06. 4. History of non-Hodgkin's lymphoma: Status post brain biopsy on December 13 by neurosurgery. Pathology consistent with acute infarct without evidence of lymphoma. Oncology signed off. 5. Diabetes mellitus: Hemoglobin A1c is 7. Continue Levemir. Monitor Accu-Cheks and cover with sliding scale insulin. Glucose well controlled 09/06. 6. Decubitus ulcer stage IV: Continue wound care, twice-daily dressing changes. Wound care recommendations. Continue pressure relief measures including turning and positioning. Patient's family has declined a diverting colostomy. Wound culture growing Klebsiella. Antibiotics per infectious disease. Status post wide excision of sacral skin and biopsy of the cavity lining with debridement on 07/22/16. 7. Gastric ulcer, reflux esophagitis: EGD on 07/30/16 showed gastric ulcers. Appreciate GI recommendations. Continue PPI. H&H stable. Check CBC 09/07. 8. UTI pseudomonas aeruginosa treated with abx . Repeat Ucx 08/28/16 negative. 9. Constipation: The pt has been noted to be straining when having bowel movements. Increase bowel regimen. KUB with mild constipation 08/31. Added lactulose 09/02. FEN: Continue Nepro tube feeds. Decrease to 60 ml/hr 09/04 because of constant bloating. Follow up with dietary recommendations. Continue free water flushes. Supplement potassium. DVT prophylaxis: SCDs. Problem Qualifiers (1) DM (diabetes mellitus): Qualified Code: E11.9 - Type 2 diabetes mellitus without complications Terrence Gonzalez MD Sep 10, 2016 14:46
--- NOTE | 2016-09-10 16:03 | HHI.PR ---
Subjective Remarks no change on o2 , o2 SAT 96% trach ok Objective Vital Signs Date Time Temp Pulse Resp B/P Pulse Ox O2 Delivery O2 Flow Rate FiO2 09/10/16 12:35 97.6 91 22 109/68 100 09/10/16 09:33 97 T-piece 6.00 28 09/10/16 08:06 98.3 92 22 110/67 98 09/10/16 07:01 98.3 87 21 126/68 97 09/10/16 00:32 96.4 91 21 133/71 99 09/10/16 00:26 18 09/09/16 20:39 96.6 81 20 117/70 98 09/09/16 20:32 100 Trach Collar 6.00 28 T-Piece 09/09/16 16:41 96.4 84 20 112/71 100 I/O 09/09/16 09/09/16 09/09/16 09/10/16 09/10/16 09/10/16 07:00 15:00 23:00 07:00 15:00 23:00 Intake Total 1940 ml Output Total 1275 ml 400 ml 1550 ml Balance 665 ml -400 ml -1550 ml Tube Feeding 1940 ml Output Urine Total 1275 ml 400 ml 1550 ml # Bowel Movements 1 0 0 Result Diagram: 09/07/16 0459 09/07/16 0459 Procedures 01/02/16 PEG placement 01/02/16 tracheostomy 07/22/2016 Wide excision of sacral skin wound, biopsy of the cavity lining and debridement. PEG tube replacement 07/29/16 Objective Remarks GENERAL: SKIN: Warm and dry. HEAD: Atraumatic. Normocephalic. EYES: Pupils equal and round. No scleral icterus. No injection or drainage. ENT: No nasal bleeding or discharge. Mucous membranes pink and moist. NECK: Trachea midline. No JVD. TRACH. [place] CARDIOVASCULAR: Regular rate and rhythm. RESPIRATORY: No accessory muscle use. Clear to auscultation. Breath sounds equal bilaterally. GASTROINTESTINAL: Abdomen soft, non-tender, nondistended. Hepatic and splenic margins not palpable. MUSCULOSKELETAL: Extremities without clubbing, cyanosis, or edema. No obvious deformities. NEUROLOGICAL: Awake and alert. No obvious cranial nerve deficits. Motor grossly within normal limits. Five out of 5 muscle strength in the arms and legs. Normal speech. PSYCHIATRIC: Appropriate mood and affect; insight and judgment normal. Assessment and Plan Assessment and Plan respiratory failure CVA S/P TRACHEOSTOMY PLAN O2 NEEDED PULM. TOILET Brandon Taylor MD Sep 10, 2016 16:03
[2016-09-10] MEDS: PARoxetine HCL SUSP 20 MG/10 ML UDC PEG SCH (18:05)
[2016-09-10] MEDS: INSULIN DETEMIR 100 UNITS/ML VIAL SQ SCH (23:34)
[2016-09-11] VITALS (10 sets, daily range): BP systolic 98–125; BP diastolic 64–74; PULSE 75–96; RESP 20; TEMP 96–98.7; O2SAT 96–100
[2016-09-11] MEDS: FREE WATER TUBE SCH ×6 (04:00→20:00)
[2016-09-11] MEDS: ACETIC ACID 0.25% SOLN 1000 ML IRR BTL IRRIGATION SCH ×3 (06:00→21:59)
[2016-09-11] MEDS: ACETAMINOPHEN/HYDROcodone 325 MG/5 MG TAB PEG SCH ×3 (06:25→17:41)
[2016-09-11] MEDS: AMOXICILLIN (TRIHYDRATE) 500 MG CAP PO SCH ×3 (06:25→21:58)
[2016-09-11] MEDS: HEPARIN SODIUM - SQ 10,000 UNITS/ML VIAL SQ SCH ×3 (06:26→21:58)
[2016-09-11] MEDS: METOPROLOL TARTRATE 50 MG TAB PO SCH ×2 (08:36→21:00)
[2016-09-11] MEDS: SENNOSIDES 8.6 MG TAB PO SCH (08:36)
[2016-09-11] MEDS: PANTOPRAZOLE SODIUM 40 MG VIAL IV PUSH SCH ×2 (08:36→21:57)
[2016-09-11] MEDS: LACTULOSE SYRUP 20 GM/30 ML CUP PO SCH (08:36)
[2016-09-11] MEDS: DOCUSATE SODIUM 100 MG/10 ML UDC PO SCH ×2 (08:36→21:57)
[2016-09-11] MEDS: SODIUM CHLORIDE 0.65% NASAL SPRAY 45 ML BTL NASAL SCH ×2 (08:37→21:00)
[2016-09-11] MEDS: INSULIN ASPART SUPPLEMENTAL SCALE SQ SCH (08:37)
[2016-09-11] MEDS: levETIRAcetam 500 MG/5 ML UDC TUBE SCH ×2 (08:37→21:57)
[2016-09-11] MEDS: ASPIRIN 325 MG TAB TUBE SCH (08:37)
[2016-09-11] MEDS: ARTIFICIAL TEARS OPTH SOLN 15 ML BTL EACH EYE SCH ×2 (08:37→21:59)
[2016-09-11] MEDS: POTASSIUM CHLORIDE 25 MEQ EFFERVESCENT TAB TUBE SCH (08:37)
[2016-09-11] MEDS: DILTIAZEM HCL 30 MG TAB PEG SCH ×4 (08:37→21:00)
[2016-09-11] MEDS: LACTOBACILLUS ACIDOPHILUS TAB PEG SCH ×3 (08:37→17:41)
[2016-09-11] MEDS: BACITRACIN TOP OINT 15 GM TUBE TOP SCH ×2 (08:38→21:58)
[2016-09-11] MEDS: NYSTATIN 100,000 U/GM PWD 15 GM BTL TOPICAL SCH ×2 (08:38→21:59)
--- NOTE | 2016-09-11 15:24 | HHI.PR ---
Subjective Remarks No acute issue, laying in bed comfortably, mother at the bedside Objective Vitals Vital Signs Date Time Temp Pulse Resp B/P Pulse Ox O2 Delivery O2 Flow Rate FiO2 09/11/16 12:16 97.4 77 20 107/71 98 09/11/16 11:50 97 Blow By 6.00 28 T-Piece Humidified 09/11/16 08:23 98 T-piece 28 09/11/16 07:54 96.9 96 20 119/70 99 09/11/16 04:00 98.7 91 20 108/71 96 09/11/16 00:00 97.4 88 20 125/74 97 09/10/16 21:30 99 T-Piece 6.00 28 Humidified 09/10/16 20:00 79 09/10/16 20:00 97.8 84 20 110/66 99 09/10/16 16:25 97.7 78 22 106/65 100 I/O 09/10/16 09/10/16 09/10/16 09/11/16 09/11/16 09/11/16 07:00 15:00 23:00 07:00 15:00 23:00 Intake Total 100 ml 200 ml Output Total 1550 ml 500 ml 800 ml 525 ml Balance -1550 ml -400 ml -600 ml -525 ml Other 100 ml 200 ml Output Urine Total 1550 ml 500 ml 800 ml 525 ml # Bowel Movements 0 Result Diagram: 09/07/16 0459 09/07/16 0459 Objective Remarks Gen.: 60 years old bedridden patient, NEUROLOGICAL: Eyes open on and off, does not track, . No movement of all 4 extremities. Procedures 01/02/16 PEG placement 01/02/16 tracheostomy 07/22/2016 Wide excision of sacral skin wound, biopsy of the cavity lining and debridement. PEG tube replacement 07/29/16 Date of Insertion: Aug 03, 2016 A/P Problem List: (1) CVA (cerebral vascular accident) ICD Code: I63.9 Status: Acute (2) A-fib ICD Code: I48.91 Status: Chronic (3) DM (diabetes mellitus) ICD Code: E11.9 Status: Chronic Assessment and Plan 09/08: Acute clocked up again, discussed with the nurse and the charge nurse to try to resolve the issue 09/09: Plan for IR to evaluate acute today 09/10: Doing well, PEG tube functional status post reviewed by IR, discussed with the mother 09/10: Continue current care 09/11: No acute issue continue ongoing management A/P: 1. 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 Patient is nonverbal. Continue Keppra for seizure prophylaxis. PT/OT signed off as patient is unable to participate. 2. Chronic respiratory failure: Secondary to CVA. Status post tracheostomy. Continue pulmonary toilet and bronchodilators as needed. Continue trach care, suctioning. Levsin as needed. On 28% FiO2 09/06. 3. Atrial fibrillation: Continue rate control with Cardizem and metoprolol. Echocardiogram in November 2015 shows preserved ejection fraction. Coumadin discontinued secondary to bleeding. Continue aspirin and prophylactic heparin dose. HR well controlled 09/06. 4. History of non-Hodgkin's lymphoma: Status post brain biopsy on December 13 by neurosurgery. Pathology consistent with acute infarct without evidence of lymphoma. Oncology signed off. 5. Diabetes mellitus: Hemoglobin A1c is 7. Continue Levemir. Monitor Accu-Cheks and cover with sliding scale insulin. Glucose well controlled 09/06. 6. Decubitus ulcer stage IV: Continue wound care, twice-daily dressing changes. Wound care recommendations. Continue pressure relief measures including turning and positioning. Patient's family has declined a diverting colostomy. Wound culture growing Klebsiella. Antibiotics per infectious disease. Status post wide excision of sacral skin and biopsy of the cavity lining with debridement on 07/22/16. 7. Gastric ulcer, reflux esophagitis: EGD on 07/30/16 showed gastric ulcers. Appreciate GI recommendations. Continue PPI. H&H stable. Check CBC 09/07. 8. UTI pseudomonas aeruginosa treated with abx . Repeat Ucx 08/28/16 negative. 9. Constipation: The pt has been noted to be straining when having bowel movements. Increase bowel regimen. KUB with mild constipation 08/31. Added lactulose 09/02. FEN: Continue Nepro tube feeds. Decrease to 60 ml/hr 09/04 because of constant bloating. Follow up with dietary recommendations. Continue free water flushes. Supplement potassium. DVT prophylaxis: SCDs. Problem Qualifiers (1) DM (diabetes mellitus): Qualified Code: E11.9 - Type 2 diabetes mellitus without complications Terrence Gonzalez MD Sep 11, 2016 15:24
[2016-09-11] MEDS: PARoxetine HCL SUSP 20 MG/10 ML UDC PEG SCH (18:27)
[2016-09-11] MEDS: INSULIN DETEMIR 100 UNITS/ML VIAL SQ SCH (21:58)
[2016-09-12] VITALS (8 sets, daily range): BP systolic 114–133; BP diastolic 68–81; PULSE 75–91; RESP 19–22; TEMP 96–97.7; O2SAT 98–100
[2016-09-12] MEDS: ACETAMINOPHEN/HYDROcodone 325 MG/5 MG TAB PEG SCH ×4 (00:54→17:37)
[2016-09-12] MEDS: FREE WATER TUBE SCH ×6 (04:00→20:00)
[2016-09-12] MEDS: HEPARIN SODIUM - SQ 10,000 UNITS/ML VIAL SQ SCH ×3 (06:51→23:08)
[2016-09-12] MEDS: AMOXICILLIN (TRIHYDRATE) 500 MG CAP PO SCH ×3 (06:51→23:07)
[2016-09-12] MEDS: ACETIC ACID 0.25% SOLN 1000 ML IRR BTL IRRIGATION SCH ×3 (06:52→22:00)
--- NOTE | 2016-09-12 06:53 | HHI.PR ---
Subjective Remarks no change on o2 , o2 SAT 96% trach ok Objective Vital Signs Date Time Temp Pulse Resp B/P Pulse Ox O2 Delivery O2 Flow Rate FiO2 09/12/16 04:00 97.4 90 22 128/81 98 09/12/16 00:00 97.7 91 20 133/75 99 09/11/16 21:00 100 T-Piece 6.00 28 Humidified 09/11/16 20:58 96 T-piece 28 09/11/16 20:00 86 09/11/16 20:00 97.4 84 20 120/72 98 09/11/16 18:44 95 09/11/16 17:39 85 20 98/66 99 09/11/16 16:04 96.0 75 20 101/64 100 09/11/16 12:16 97.4 77 20 107/71 98 09/11/16 11:50 97 Blow By 6.00 28 T-Piece Humidified 09/11/16 08:23 98 T-piece 28 09/11/16 07:54 96.9 96 20 119/70 99 I/O 09/11/16 09/11/16 09/11/16 09/12/16 09/12/16 09/12/16 07:00 15:00 23:00 07:00 15:00 23:00 Intake Total 200 ml 100 ml 100 ml Output Total 800 ml 525 ml 600 ml 500 ml Balance -600 ml -525 ml -500 ml -400 ml Other 200 ml 100 ml 100 ml Output Urine Total 800 ml 525 ml 600 ml 500 ml # Bowel Movements 1 Procedures 01/02/16 PEG placement 01/02/16 tracheostomy 07/22/2016 Wide excision of sacral skin wound, biopsy of the cavity lining and debridement. PEG tube replacement 07/29/16 Objective Remarks GENERAL: SKIN: Warm and dry. HEAD: Atraumatic. Normocephalic. EYES: Pupils equal and round. No scleral icterus. No injection or drainage. ENT: No nasal bleeding or discharge. Mucous membranes pink and moist. NECK: Trachea midline. No JVD. TRACH. [place] CARDIOVASCULAR: Regular rate and rhythm. RESPIRATORY: No accessory muscle use. Clear to auscultation. Breath sounds equal bilaterally. GASTROINTESTINAL: Abdomen soft, non-tender, nondistended. Hepatic and splenic margins not palpable. MUSCULOSKELETAL: Extremities without clubbing, cyanosis, or edema. No obvious deformities. NEUROLOGICAL: Awake and alert. No obvious cranial nerve deficits. Motor grossly within normal limits. Five out of 5 muscle strength in the arms and legs. Normal speech. PSYCHIATRIC: Appropriate mood and affect; insight and judgment normal. Assessment and Plan Assessment and Plan respiratory failure CVA S/P TRACHEOSTOMY PLAN O2 NEEDED PULM. TOILET Brandon Taylor MD Sep 12, 2016 06:53
[2016-09-12] MEDS: INSULIN ASPART SUPPLEMENTAL SCALE SQ SCH (06:54)
[2016-09-12] MEDS: SODIUM CHLORIDE 0.65% NASAL SPRAY 45 ML BTL NASAL SCH ×2 (09:00→21:00)
[2016-09-12] MEDS: ARTIFICIAL TEARS OPTH SOLN 15 ML BTL EACH EYE SCH ×2 (09:00→21:00)
[2016-09-12] MEDS: BACITRACIN TOP OINT 15 GM TUBE TOP SCH ×2 (09:00→21:00)
[2016-09-12] MEDS: levETIRAcetam 500 MG/5 ML UDC TUBE SCH ×2 (09:13→23:06)
[2016-09-12] MEDS: LACTULOSE SYRUP 20 GM/30 ML CUP PO SCH (09:13)
[2016-09-12] MEDS: DILTIAZEM HCL 30 MG TAB PEG SCH ×4 (09:13→23:08)
[2016-09-12] MEDS: POTASSIUM CHLORIDE 25 MEQ EFFERVESCENT TAB TUBE SCH (09:13)
[2016-09-12] MEDS: LACTOBACILLUS ACIDOPHILUS TAB PEG SCH ×3 (09:14→17:37)
[2016-09-12] MEDS: DOCUSATE SODIUM 100 MG/10 ML UDC PO SCH ×2 (09:14→21:00)
[2016-09-12] MEDS: ASPIRIN 325 MG TAB TUBE SCH (09:14)
[2016-09-12] MEDS: METOPROLOL TARTRATE 50 MG TAB PO SCH ×2 (09:14→23:08)
[2016-09-12] MEDS: SENNOSIDES 8.6 MG TAB PO SCH (09:14)
[2016-09-12] MEDS: PANTOPRAZOLE SODIUM 40 MG VIAL IV PUSH SCH ×2 (09:15→23:07)
[2016-09-12] MEDS: NYSTATIN 100,000 U/GM PWD 15 GM BTL TOPICAL SCH ×2 (09:15→21:00)
--- NOTE | 2016-09-12 15:19 | HHI.PR ---
Subjective Remarks Resting in bed comfortably, afebrile overnight, no acute issue Objective Vitals Vital Signs Date Time Temp Pulse Resp B/P Pulse Ox O2 Delivery O2 Flow Rate FiO2 09/12/16 13:25 18 09/12/16 12:55 97.4 78 20 114/68 100 09/12/16 09:57 98 T-piece 28 09/12/16 08:44 96.7 84 22 128/73 98 09/12/16 04:00 97.4 90 22 128/81 98 09/12/16 00:00 97.7 91 20 133/75 99 09/11/16 21:00 100 T-Piece 6.00 28 Humidified 09/11/16 20:58 96 T-piece 28 09/11/16 20:00 86 09/11/16 20:00 97.4 84 20 120/72 98 09/11/16 18:44 95 09/11/16 17:39 85 20 98/66 99 09/11/16 16:04 96.0 75 20 101/64 100 I/O 09/11/16 09/11/16 09/11/16 09/12/16 09/12/16 09/12/16 07:00 15:00 23:00 07:00 15:00 23:00 Intake Total 200 ml 100 ml 200 ml Output Total 800 ml 525 ml 600 ml 500 ml Balance -600 ml -525 ml -500 ml -300 ml Other 200 ml 100 ml 200 ml Output Urine Total 800 ml 525 ml 600 ml 500 ml # Bowel Movements 1 Objective Remarks Gen.: 60 years old bedridden patient, NEUROLOGICAL: Eyes open on and off, does not track, . No movement of all 4 extremities. Procedures 01/02/16 PEG placement 01/02/16 tracheostomy 07/22/2016 Wide excision of sacral skin wound, biopsy of the cavity lining and debridement. PEG tube replacement 07/29/16 Date of Insertion: Aug 03, 2016 A/P Problem List: (1) CVA (cerebral vascular accident) ICD Code: I63.9 Status: Acute (2) A-fib ICD Code: I48.91 Status: Chronic (3) DM (diabetes mellitus) ICD Code: E11.9 Status: Chronic Assessment and Plan 09/12: Continue current care no acute issue A/P: 1. 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 Patient is nonverbal. Continue Keppra for seizure prophylaxis. PT/OT signed off as patient is unable to participate. 2. Chronic respiratory failure: Secondary to CVA. Status post tracheostomy. Continue pulmonary toilet and bronchodilators as needed. Continue trach care, suctioning. Levsin as needed. On 28% FiO2 09/06. 3. Atrial fibrillation: Continue rate control with Cardizem and metoprolol. Echocardiogram in November 2015 shows preserved ejection fraction. Coumadin discontinued secondary to bleeding. Continue aspirin and prophylactic heparin dose. HR well controlled 09/06. 4. History of non-Hodgkin's lymphoma: Status post brain biopsy on December 13 by neurosurgery. Pathology consistent with acute infarct without evidence of lymphoma. Oncology signed off. 5. Diabetes mellitus: Hemoglobin A1c is 7. Continue Levemir. Monitor Accu-Cheks and cover with sliding scale insulin. Glucose well controlled 09/06. 6. Decubitus ulcer stage IV: Continue wound care, twice-daily dressing changes. Wound care recommendations. Continue pressure relief measures including turning and positioning. Patient's family has declined a diverting colostomy. Wound culture growing Klebsiella. Antibiotics per infectious disease. Status post wide excision of sacral skin and biopsy of the cavity lining with debridement on 07/22/16. 7. Gastric ulcer, reflux esophagitis: EGD on 07/30/16 showed gastric ulcers. Appreciate GI recommendations. Continue PPI. H&H stable. Check CBC 09/07. 8. UTI pseudomonas aeruginosa treated with abx . Repeat Ucx 08/28/16 negative. 9. Constipation: The pt has been noted to be straining when having bowel movements. Increase bowel regimen. KUB with mild constipation 08/31. Added lactulose 09/02. FEN: Continue Nepro tube feeds. Decrease to 60 ml/hr 09/04 because of constant bloating. Follow up with dietary recommendations. Continue free water flushes. Supplement potassium. DVT prophylaxis: SCDs. Problem Qualifiers (1) DM (diabetes mellitus): Qualified Code: E11.9 - Type 2 diabetes mellitus without complications Terrence Gonzalez MD Sep 12, 2016 15:19
[2016-09-12] MEDS: PARoxetine HCL SUSP 20 MG/10 ML UDC PEG SCH (17:37)
[2016-09-12] MEDS: INSULIN DETEMIR 100 UNITS/ML VIAL SQ SCH (23:07)
[2016-09-13] VITALS (10 sets, daily range): BP systolic 117–135; BP diastolic 67–74; PULSE 73–87; RESP 18–20; TEMP 97.3–99; O2SAT 97–100
[2016-09-13] MEDS: FREE WATER TUBE SCH ×6 (04:00→20:00)
[2016-09-13] MEDS: ACETIC ACID 0.25% SOLN 1000 ML IRR BTL IRRIGATION SCH ×3 (06:00→21:38)
[2016-09-13] MEDS: ACETAMINOPHEN/HYDROcodone 325 MG/5 MG TAB PEG SCH ×4 (06:40→18:11)
[2016-09-13] MEDS: AMOXICILLIN (TRIHYDRATE) 500 MG CAP PO SCH ×3 (06:40→21:37)
[2016-09-13] MEDS: HEPARIN SODIUM - SQ 10,000 UNITS/ML VIAL SQ SCH ×3 (06:41→21:37)
[2016-09-13] MEDS: INSULIN ASPART SUPPLEMENTAL SCALE SQ SCH (06:41)
[2016-09-13] MEDS: ARTIFICIAL TEARS OPTH SOLN 15 ML BTL EACH EYE SCH ×2 (08:40→21:00)
[2016-09-13] MEDS: SODIUM CHLORIDE 0.65% NASAL SPRAY 45 ML BTL NASAL SCH ×2 (08:41→21:00)
[2016-09-13] MEDS: DILTIAZEM HCL 30 MG TAB PEG SCH ×4 (08:41→21:37)
[2016-09-13] MEDS: DOCUSATE SODIUM 100 MG/10 ML UDC PO SCH ×2 (08:41→21:37)
[2016-09-13] MEDS: levETIRAcetam 500 MG/5 ML UDC TUBE SCH ×2 (08:41→21:37)
[2016-09-13] MEDS: NYSTATIN 100,000 U/GM PWD 15 GM BTL TOPICAL SCH ×2 (08:41→21:00)
[2016-09-13] MEDS: LACTULOSE SYRUP 20 GM/30 ML CUP PO SCH (08:41)
[2016-09-13] MEDS: POTASSIUM CHLORIDE 25 MEQ EFFERVESCENT TAB TUBE SCH (08:42)
[2016-09-13] MEDS: LACTOBACILLUS ACIDOPHILUS TAB PEG SCH ×3 (08:42→18:11)
[2016-09-13] MEDS: ASPIRIN 325 MG TAB TUBE SCH (08:42)
[2016-09-13] MEDS: METOPROLOL TARTRATE 50 MG TAB PO SCH ×2 (08:42→21:37)
[2016-09-13] MEDS: SENNOSIDES 8.6 MG TAB PO SCH (08:42)
[2016-09-13] MEDS: BACITRACIN TOP OINT 15 GM TUBE TOP SCH ×2 (08:54→21:00)
[2016-09-13] MEDS: PANTOPRAZOLE SODIUM 40 MG VIAL IV PUSH SCH ×2 (10:19→21:38)
[2016-09-13] MEDS: SODIUM CHLORIDE 0.9% FLUSH 5 ML FLUSH IVF PRN ×2 (10:21→21:44)
--- NOTE | 2016-09-13 13:13 | HHI.PR ---
Subjective Remarks laying in bed comfirtably , sleeping , in nad the mother c/o they had to hold the cardizem for low hr , his bp has been controlled well , so i will reduce lopressor from 75 to 50 bid so he can tolerate cardizem better without having to hold some of the dose and then we can switch to CD cardizem Objective Vitals Vital Signs Date Time Temp Pulse Resp B/P Pulse Ox O2 Delivery O2 Flow Rate FiO2 09/13/16 12:25 98.0 75 20 121/71 98 09/13/16 09:17 98 Nasal Cannula 5.00 28 09/13/16 09:17 98 T-piece 5.00 28 09/13/16 08:30 87 09/13/16 08:30 T-Piece 6.00 28 Humidified 09/13/16 08:23 98.8 85 20 125/74 98 09/13/16 07:40 18 09/13/16 05:57 99.0 79 19 135/73 99 09/13/16 03:49 98 T-Piece 28 Humidified 09/13/16 00:19 97.7 78 19 117/67 100 09/12/16 20:14 97.3 81 19 129/69 100 09/12/16 20:00 80 09/12/16 16:52 96.0 75 20 118/69 99 I/O 09/12/16 09/12/16 09/12/16 09/13/16 09/13/16 09/13/16 07:00 15:00 23:00 07:00 15:00 23:00 Intake Total 200 ml 624 ml 642 ml 855 ml Output Total 500 ml 1975 ml 800 ml Balance -300 ml 624 ml -1333 ml 55 ml Tube Feeding 624 ml 422 ml 405 ml Other 200 ml 220 ml 450 ml Output Urine Total 500 ml 1975 ml 800 ml # Bowel Movements 1 2 1 Objective Remarks Gen.: 60 years old bedridden patient, cardio:s1s2, no m resp: fair air entry , some cracles b/l GI : soft , nt, nd , +bs, PEG in place musclskeletal: no e/c/c NEUROLOGICAL: Eyes open on and off, does not track, . No movement of all 4 extremities. Procedures 01/02/16 PEG placement 01/02/16 tracheostomy 07/22/2016 Wide excision of sacral skin wound, biopsy of the cavity lining and debridement. PEG tube replacement 07/29/16 Date of Insertion: Aug 03, 2016 A/P Problem List: (1) CVA (cerebral vascular accident) ICD Code: I63.9 Status: Acute (2) A-fib ICD Code: I48.91 Status: Chronic (3) DM (diabetes mellitus) ICD Code: E11.9 Status: Chronic Assessment and Plan 09/13: Cardizem has been held on many occasion for low hr , his bp has been controlled well , so i will reduce Lopressor from 75 to 50 bid so he can tolerate Cardizem better without having to hold some of the dose and then we can switch to CD cardizem A/P: 1. 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 Patient is nonverbal. Continue Keppra for seizure prophylaxis. PT/OT signed off as patient is unable to participate. 2. Chronic respiratory failure: Secondary to CVA. Status post tracheostomy. Continue pulmonary toilet and bronchodilators as needed. Continue trach care, suctioning. Levsin as needed. On 28% FiO2 09/06. 3. Atrial fibrillation: Continue rate control with Cardizem and metoprolol. Echocardiogram in November 2015 shows preserved ejection fraction. Coumadin discontinued secondary to bleeding. Continue aspirin and prophylactic heparin dose. HR well controlled 09/06. 4. History of non-Hodgkin's lymphoma: Status post brain biopsy on December 13 by neurosurgery. Pathology consistent with acute infarct without evidence of lymphoma. Oncology signed off. 5. Diabetes mellitus: Hemoglobin A1c is 7. Continue Levemir. Monitor Accu-Cheks and cover with sliding scale insulin. Glucose well controlled 09/06. 6. Decubitus ulcer stage IV: Continue wound care, twice-daily dressing changes. Wound care recommendations. Continue pressure relief measures including turning and positioning. Patient's family has declined a diverting colostomy. Wound culture growing Klebsiella. Antibiotics per infectious disease. Status post wide excision of sacral skin and biopsy of the cavity lining with debridement on 07/22/16. 7. Gastric ulcer, reflux esophagitis: EGD on 07/30/16 showed gastric ulcers. Appreciate GI recommendations. Continue PPI. H&H stable. Check CBC 09/07. 8. UTI pseudomonas aeruginosa treated with abx . Repeat Ucx 2/8/17 negative. 9. Constipation: The pt has been noted to be straining when having bowel movements. Increase bowel regimen. KUB with mild constipation 08/31. Added lactulose 09/02. FEN: Continue Nepro tube feeds. Decrease to 60 ml/hr 09/04 because of constant bloating. Follow up with dietary recommendations. Continue free water flushes. Supplement potassium. DVT prophylaxis: SCDs. Problem Qualifiers (1) DM (diabetes mellitus): Qualified Code: E11.9 - Type 2 diabetes mellitus without complications Terrence Gonzalez MD Sep 13, 2016 13:13
[2016-09-13] MEDS: PARoxetine HCL SUSP 20 MG/10 ML UDC PEG SCH (18:11)
[2016-09-13] MEDS: INSULIN DETEMIR 100 UNITS/ML VIAL SQ SCH (21:38)
[2016-09-14] VITALS (8 sets, daily range): BP systolic 113–127; BP diastolic 69–77; PULSE 75–88; RESP 19–23; TEMP 96.4–98.1; O2SAT 98–100
[2016-09-14] MEDS: FREE WATER TUBE SCH ×6 (04:00→20:00)
[2016-09-14] MEDS: AMOXICILLIN (TRIHYDRATE) 500 MG CAP PO SCH ×3 (06:00→22:21)
[2016-09-14] MEDS: HEPARIN SODIUM - SQ 10,000 UNITS/ML VIAL SQ SCH ×3 (06:00→22:20)
[2016-09-14] MEDS: ACETIC ACID 0.25% SOLN 1000 ML IRR BTL IRRIGATION SCH ×3 (06:00→22:22)
[2016-09-14] MEDS: ACETAMINOPHEN/HYDROcodone 325 MG/5 MG TAB PEG SCH ×4 (06:00→18:00)
[2016-09-14] MEDS: INSULIN ASPART SUPPLEMENTAL SCALE SQ SCH (07:00)
[2016-09-14] MEDS: SODIUM CHLORIDE 0.65% NASAL SPRAY 45 ML BTL NASAL SCH ×2 (09:00→21:00)
[2016-09-14] MEDS: ARTIFICIAL TEARS OPTH SOLN 15 ML BTL EACH EYE SCH ×2 (09:00→22:22)
[2016-09-14] MEDS: NYSTATIN 100,000 U/GM PWD 15 GM BTL TOPICAL SCH ×2 (09:00→22:22)
[2016-09-14] MEDS: BACITRACIN TOP OINT 15 GM TUBE TOP SCH ×2 (09:00→22:22)
[2016-09-14] MEDS: levETIRAcetam 500 MG/5 ML UDC TUBE SCH ×2 (09:01→22:21)
[2016-09-14] MEDS: LACTULOSE SYRUP 20 GM/30 ML CUP PO SCH (09:01)
[2016-09-14] MEDS: POTASSIUM CHLORIDE 25 MEQ EFFERVESCENT TAB TUBE SCH (09:01)
[2016-09-14] MEDS: DOCUSATE SODIUM 100 MG/10 ML UDC PO SCH ×2 (09:02→22:20)
[2016-09-14] MEDS: LACTOBACILLUS ACIDOPHILUS TAB PEG SCH ×3 (09:02→18:00)
[2016-09-14] MEDS: METOPROLOL TARTRATE 50 MG TAB PO SCH ×2 (09:02→22:20)
[2016-09-14] MEDS: DILTIAZEM HCL 30 MG TAB PEG SCH ×3 (09:02→22:20)
[2016-09-14] MEDS: SENNOSIDES 8.6 MG TAB PO SCH (09:02)
[2016-09-14] MEDS: ASPIRIN 325 MG TAB TUBE SCH (09:03)
[2016-09-14] MEDS: PANTOPRAZOLE SODIUM 40 MG VIAL IV PUSH SCH ×2 (10:30→22:21)
--- NOTE | 2016-09-14 12:12 | HHI.PR ---
Subjective Remarks resting comfortably with no distress. no fever. Objective Vitals Vital Signs Date Time Temp Pulse Resp B/P Pulse Ox O2 Delivery O2 Flow Rate FiO2 09/14/16 08:00 96.4 88 23 119/76 99 09/14/16 04:30 T-Piece 6.00 28 Humidified 09/14/16 03:23 98.1 79 19 127/74 98 09/14/16 00:34 97.9 75 19 127/77 98 09/13/16 23:51 97 T-piece 6.00 28 09/13/16 20:17 97.3 78 19 121/71 97 09/13/16 20:00 76 09/13/16 16:04 97.5 73 18 128/72 99 09/13/16 12:48 18 09/13/16 12:25 98.0 75 20 121/71 98 I/O 09/13/16 09/13/16 09/13/16 09/14/16 09/14/16 09/14/16 07:00 15:00 23:00 07:00 15:00 23:00 Intake Total 855 ml 1198 ml 671 ml 822 ml Output Total 800 ml 550 ml 975 ml 550 ml Balance 55 ml 648 ml -304 ml 272 ml Tube Feeding 405 ml 398 ml 421 ml 422 ml Other 450 ml 800 ml 250 ml 400 ml Output Urine Total 800 ml 550 ml 975 ml 550 ml # Bowel Movements 1 0 Imaging Last Impressions Tube Change 09/09/16 1011 Signed Impressions: Service Date/Time: Friday, September 09, 2016 11:27 - CONCLUSION: Occluded jejunal port of the GJ tube. Uncomplicated gastrojejunostomy tube exchange as above. Jonel Jones Jr., MD Abdomen X-Ray 08/31/16 0000 Signed Impressions: Service Date/Time: Wednesday, August 31, 2016 16:36 - CONCLUSION: 1. No acute findings. Mild constipation. Durga Dotson MD Chest X-Ray 08/23/16 0000 Signed Impressions: Service Date/Time: Tuesday, August 23, 2016 16:06 - CONCLUSION: Minimal basilar right lung opacity likely representing atelectasis. Kwasi James MD Abdomen/Pelvis CT 04/12/16 0000 Signed Impressions: Service Date/Time: Tuesday, April 12, 2016 20:52 - CONCLUSION: 1. 6.4 cm necrotic mass or abscess in the soft tissues posteriorly just below the sacrum associated with some bony destructive change of the lower most sacrum and coccyx with inflammatory changes extending into the ischiorectal fossa and into the presacral retroperitoneum predominantly on the left side. There is associated fairly marked mural thickening of the anal verge and rectum. 2. There is gastrostomy and Arevalo catheter present. Stable abdominal aortic aneurysm. Durga Dotson MD Head Magnetic Resonance Angiography 03/05/16 0000 Signed Impressions: Service Date/Time: Saturday, March 05, 2016 09:26 - CONCLUSION: Persistent high-grade subtotal occlusive stenotic lesions in the distal right vertebral artery and proximal basilar artery with significant improvement in flow and recanalization following initial presentation of thrombosis. Stable interstitial circulation without significant stenosis. 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 There is decreasing restricted diffusion and increasing loss of volume characteristic of a subacute to chronic infarct. No evidence of acute infarct, acute hemorrhage mass or edema. Ernesto Kulkarni MD Head CT 01/16/16 0000 Signed Impressions: Service Date/Time: Saturday, January 16, 2016 10:51 - CONCLUSION: No extensive low density in the brainstem colin more prominent in the right the left extending into the right middle cerebellar peduncle consistent with brainstem infarct nonhemorrhagic acute Wellington West MD Neck Magnetic Resonance Angiography 12/22/15 1445 Signed Impressions: Service Date/Time: Tuesday, December 22, 2015 09:22 - CONCLUSION: Variant origin of the left vertebral artery from the aortic arch. No evidence of carotid stenosis. Glen Zamora MD Head/Brain Mag Res Venography 12/22/15 0000 Signed Impressions: Service Date/Time: Tuesday, December 22, 2015 09:22 - CONCLUSION: Normal MRV. Jonel Jones Jr., MD Objective Remarks GENERAL: on Trach- in no apparent distress. Neck; trach in place CARDIOVASCULAR: Regular rate and regular rhythm without murmurs, gallops, or rubs. RESPIRATORY: Clear to auscultation. Breath sounds equal bilaterally. No wheezes , rales, or rhonchi. GASTROINTESTINAL: Abdomen soft, non-tender,distended. hypoactive bowel sounds-PEG in place MUSCULOSKELETAL: Extremities without clubbing, cyanosis, or edema. NEURO: opens the eyes to verbal stimuli Procedures 01/02/16 PEG placement 01/02/16 tracheostomy 07/22/2016 Wide excision of sacral skin wound, biopsy of the cavity lining and debridement. PEG tube replacement 07/29/16 Medications and IVs Current Medications IV Flush (NS Flush) 2 ml UNSCH PRN IVF FLUSH AFTER USING IV ACCESS Last administered on 09/13/16t 21:44; Start 12/21/15 at 06:00 Ondansetron HCl (Zofran Inj) 4 mg STK-MED ONCE .ROUTE ; Start 12/21/15 at 06:22; Stop 12/21/15 at 06:23; Status DC Ondansetron HCl (Zofran Inj) 4 mg ONCE ONCE IV PUSH Last administered on at 06:43; Start 12/21/15 at 06:30; Stop 12/21/15 at 06:31; Status DC Diltiazem HCl 20 mg 20 mg ONCE ONCE IV Last administered on 12/21/15at 06:42; Start 12/21/15 at 06:30; Stop 12/21/15 at 06:31; Status DC Diltiazem HCl/ Sodium Chloride (Cardizem Inj/NS Inj) 125 ml @ 0 mls/hr TITRATE IV Last administered on 12/21/15at 06:47; Start 12/21/15 at 06:30; Stop 12/21/15 at 13:00; Status DC Acetaminophen (Tylenol) 650 mg ONCE ONCE PO ; Start 12/21/15 at 06:45; Stop 12/20 at 06:46; Status DC Lorazepam (Ativan Inj) 1 mg ONCE ONCE IV PUSH Last administered on 12/21/15at 07 :22; Start 12/21/15 at 07:15; Stop 12/21/15 at 07:16; Status DC Etomidate (Amidate Inj) 40 mg STK-MED ONCE .ROUTE Last administered on at 08:17; Start 12/21/15 at 07:37; Stop 12/21/15 at 07:38; Status DC Succinylcholine Chloride 200 mg 200 mg STK-MED ONCE .ROUTE Last administered on 12/21/15at 08:18; Start 12/21/15 at 07:37; Stop 12/21/15 at 07:38; Status DC Propofol (Diprivan 1000 Mg/100ml Inj) 100 ml @ As Directed STK-MED ONCE .ROUTE Last administered on 12/21/15at 08:19; Start 12/21/15 at 07:46; Stop 12/21/15 at 07:47; Status DC Propofol (Diprivan 1000 Mg/100ml Inj) search Sets for Drip. NOW PRN IV SEDATION Last administered on 12/22/15at 06:25; Start 12/21/15 at 08:30; Stop 12/28 at 15:43; Status DC Gadodiamide (Omniscan Pf Inj) 18 ml STK-MED ONCE IV Last administered on at 10:11; Start 12/21/15 at 10:11; Stop 12/21/15 at 10:12; Status DC Pantoprazole Sodium (Protonix Inj) 40 mg DAILY IV Last administered on at 07:39; Start 12/21/15 at 13:00; Stop 01/03/16 at 10:10; Status DC Albuterol/ Ipratropium (Duoneb Neb) 1 ampule Q6HR NEB INH Last administered on 12/25/15at 07:51; Start 12/21/15 at 13:00; Stop 12/25/15 at 13:00; Status DC Miscellaneous Information 1 [id number] Last administered on 12/21/15at 13:00; Start 12/21/15 at 13:00; Stop 01/12/16 at 11:47; Status DC Chlorhexidine Gluconate (Chlorhexidine 2% Cloth) 3 pack Taper DAILY@04 TOP Last administered on 01/11/16at 04:10; Start 12/22/15 at 04:00; Stop 01/12/16 at 11:47; Status DC Chlorhexidine Gluconate 3 pack 3 pack UNSCH PRN TOP HYGIENIC CARE; Start at 13:00; Stop 01/12/16 at 11:47; Status DC Sodium Chloride (NS 1000 ml Inj) 1,000 ml @ 75 mls/hr [id number] IV Last administered on 12/22/15at 17:00; Start 12/21/15 at 13:00; Stop 12/22/15 at 19:01; Status DC Dextrose (D50w (Vial) Inj) 25 ml UNSCH PRN IV PUSH HYPOGLYCEMIA-SEE COMMENTS; Start 12/21/15 at 13:00; Stop 04/19/16 at 17:19; Status DC Glucagon (Glucagon Inj) 1 mg UNSCH PRN OTHER HYPOGLYCEMIA-SEE COMMENTS; Start 12/21/15 at 13:00; Stop 04/19/16 at 17:19; Status DC Insulin Human Regular (NovoLIN R SUPPLEMENTAL SCALE) 1 Q6H SQ Last administered on 01/04/16at 06:31; Start 12/21/15 at 13:00; Stop 01/04/16 at 10:05 ; Status DC Levetriacetam (Keppra) 500 mg Q12HR PO Last administered on 12/27/15at 09:00; Start 12/21/15 at 13:45; Stop 12/27/15 at 09:44; Status DC Heparin Sodium (Porcine) (Heparin Inj) 5,000 units BID SQ Last administered on 12/22/15at 20:52; Start 12/21/15 at 21:00; Stop 12/23/15 at 08:32; Status DC Warfarin Sodium (Coumadin) 7.5 mg ONCE ONCE PO Last administered on 12/21/15at 21:43; Start 12/21/15 at 21:00; Stop 12/21/15 at 21:01; Status DC Warfarin Sodium (Coumadin) 5 mg DAILY@16 PO Last administered on 12/23/15at 16:00 ; Start 12/22/15 at 16:00; Stop 12/26/15 at 09:29; Status DC Patient Medication Teaching (Coumadin Booklet) 1 ONCE ONCE XX Last administered on 12/21/15at 20:15; Start 12/21/15 at 20:15; Stop 12/21/15 at 20:16; Status DC Chlorhexidine Gluconate (Peridex 0.12% Liq) 15 ml BID@08,20 MT Last administered on 01/12/16at 08:00; Start 12/22/15 at 20:00; Stop 01/12/16 at 11:47 ; Status DC Gadodiamide 20 ml 20 ml STK-MED ONCE IV Last administered on 12/22/15at 09:55; Start 12/22/15 at 09:55; Stop 12/22/15 at 09:56; Status DC Pharmacy Profile Note ml @ 0 mls/hr UNSCH OTHER ; Start 12/22/15 at 11:00; Stop 12/22/15 at 19:43; Status DC Sodium Chloride 1,000 ml @ 50 mls/hr Q20H IV Last administered on 12/24/15at 20: 02; Start 12/22/15 at 18:44; Stop 12/25/15 at 11:52; Status DC Pharmacy Profile Note (Coumadin Consult Pharmacy) 0 ml @ 0 mls/hr UNSCH OTHER ; Start 12/22/15 at 19:45; Stop 01/04/16 at 12:25; Status DC Acetaminophen 650 mg 650 mg Q6H PRN PO TEMP > 100 Last administered on at 13:24; Start 12/23/15 at 02:45; Stop 12/30/15 at 15:04; Status DC Potassium Chloride 100 ml @ 50 mls/hr Q2H PRN IV For Potassium 2.8 - 3.2 mEq/L ; Start 12/23/15 at 08:30; Stop 01/09/16 at 11:14; Status DC Potassium Chloride (KCl 20 Meq Premix Inj) 100 ml @ 50 mls/hr Q2H PRN IV For Potassium 2.8 - 3.2 mEq/L; Start 12/23/15 at 08:30; Stop 01/09/16 at 11:14; Status DC Potassium Chloride 40 meq 40 meq UNSCH PRN PO/TUBE For Potassium 3.3 - 3.5 mEq/ L; Start 12/23/15 at 08:30; Stop 01/09/16 at 11:14; Status DC Potassium Chloride 100 ml @ 25 mls/hr UNSCH PRN IV For Potassium 3.3 - 3.5 mEq /L; Start 12/23/15 at 08:30; Stop 01/09/16 at 11:14; Status DC Potassium Chloride 100 ml @ 50 mls/hr Q2H PRN IV For Potassium 3.3 - 3.5 mEq/L ; Start 12/23/15 at 08:30; Stop 01/09/16 at 11:14; Status DC Magnesium Sulfate/ Sodium Chloride (Magnesium Sulfate Inj/NS Inj) 100 ml @ 50 mls/hr UNSCH PRN IV For Magnesium 0.9 - 1.1 mg/dL; Start 12/23/15 at 08:30; Stop 01/09/16 at 11:14; Status DC Magnesium Oxide 800 mg 800 mg UNSCH PRN PO For Magnesium 1.2 - 1.6 mg/dL; Start 12/23/15 at 08:30; Stop 01/09/16 at 11:14; Status DC Magnesium Sulfate/ Sodium Chloride (Magnesium Sulfate Inj/NS Inj) 100 ml @ 50 mls/hr UNSCH PRN IV For Magnesium 1.2 - 1.6 mg/dL; Start 12/23/15 at 08:30; Stop 01/09/16 at 11:14; Status DC Potassium Phosphate 2000 mg 2,000 mg Q4H PRN PO For Phosphorus < 2.5 mg/dL; Start 12/23/15 at 08:30; Stop 01/09/16 at 11:14; Status DC Sodium Phosphate/ Sodium Chloride (Sodium Phosphate Inj/NS 250 ml Inj) 250 ml @ 42 mls/hr UNSCH PRN IV For Phosphorus < 2.5 mg/dL; Start 12/23/15 at 08:30; Stop 01/09/16 at 11:14; Status DC Potassium Chloride (KCl 40 Meq/30 ml Liq) 40 meq UNSCH PRN PO/TUBE SEE LABEL COMMENTS; Start 12/23/15 at 08:30; Stop 01/09/16 at 11:14; Status DC Potassium Phosphate 2000 mg 2,000 mg UNSCH PRN PO/TUBE SEE LABEL COMMENTS; Start 12/23/15 at 08:30; Stop 01/09/16 at 11:14; Status DC Potassium Phosphate 30 mmol/ Sodium Chloride 260 ml @ 42 mls/hr UNSCH PRN IV SEE LABEL COMMENTS; Start 12/23/15 at 08:30; Stop 01/09/16 at 11:14; Status DC Sodium Chloride 1,000 ml @ 75 mls/hr [id number] IV ; Start 12/23/15 at 08:30; Stop 12/23/15 at 08:30; Status DC Piperacillin Sod/ Tazobactam Sod 50 ml @ 100 mls/hr Q6H IV Last administered on 12/30/15at 10:02; Start 12/23/15 at 10:00; Stop 12/30/15 at 14:50; Status DC Vancomycin HCl/ Sodium Chloride (Vancomycin Inj/ NS 250 ml Inj) 250 ml @ 250 mls/hr Q12H IV Last administered on 12/29/15at 09:01; Start 12/24/15 at 08:45; Stop 12/29/15 at 15:33; Status DC Warfarin Sodium (Coumadin) 4 mg DAILY@16 PO Last administered on 12/28/15at 16:00 ; Start 12/26/15 at 16:00; Stop 01/04/16 at 12:25; Status DC Levetriacetam (Keppra Liq) 500 mg Q12HR TUBE Last administered on 09/14/16 09 :01; Start 12/27/15 at 21:00 Docusate Sodium (Colace Liq) 100 mg Q12HR TUBE Last administered on 01/15/16 09:01; Start 12/27/15 at 21:00; Stop 04/16/16 at 08:50; Status DC Sennosides (Senna Liq) 8.8 mg DAILY TUBE Last administered on 01/15/16at 09:01 ; Start 12/27/15 at 17:00; Stop 01/15/16 at 20:37; Status DC Bisacodyl (Dulcolax Supp) 10 mg ONCE ONCE RECTAL ; Start 12/27/15 at 16:15; Stop 12/27/15 at 16:15; Status DC Albuterol/ Ipratropium (Duoneb Neb) 1 ampule Q4HR NEB PRN NEB RESPIRATORY DISTRESS Last administered on 12/29/15at 12:17; Start 12/27/15 at 22:00; Stop at 08:16; Status DC Bisacodyl (Dulcolax Supp) 10 mg ONCE ONCE RECTAL ; Start 12/28/15 at 12:00; Stop 12/28/15 at 12:01; Status DC Sodium Chloride (Sodium Chloride) 1 gm BID TUBE Last administered on 12/29/15at 09:02; Start 12/28/15 at 21:00; Stop 12/29/15 at 15:43; Status DC Lactulose (Lactulose Liq) 30 ml DAILY TUBE Last administered on 12/29/15at 09:02 ; Start 12/28/15 at 20:30; Stop 12/29/15 at 15:43; Status DC Levofloxacin (Levaquin) 750 mg DAILY@16 TUBE ; Start 12/29/15 at 16:00; Stop 05/05 at 16:00; Status DC Sodium Chloride (Sodium Chloride) 1 gm DAILY TUBE Last administered on at 07:29; Start 12/30/15 at 09:00; Stop 12/31/15 at 14:08; Status DC Water 200 ml 200 ml Q6HR G-TUBE Last administered on 12/31/15at 04:19; Start 06/05 at 14:45; Stop 12/31/15 at 07:31; Status DC Ceftriaxone Sodium/Sodium Chloride (Rocephin Inj/NS Inj) 100 ml @ 200 mls/hr Q12H IV Last administered on 01/03/16at 02:47; Start 12/30/15 at 15:00; Stop at 10:09; Status DC Acetaminophen (Tylenol 650 Mg/ 20 ml Liq) 650 mg Q6H PRN TUBE TEMP >100.4 Last administered on 08/23/16t 12:52; Start 12/30/15 at 15:15 Lactobacillus Acidophilus (Lactinex Pkt) 1 gm BID TUBE Last administered on at 09:00; Start 12/30/15 at 21:00; Stop 02/10/16 at 14:30; Status DC Enoxaparin Sodium (Lovenox Inj) 90 mg Q12H SQ Last administered on 01/01/16at 21 :57; Start 12/31/15 at 08:00; Stop 01/03/16 at 10:33; Status DC Water (Free Water) 100 ml Q12H G-TUBE ; Start 12/31/15 at 18:00; Stop 12/31/15 at 18:00; Status DC Acetaminophen/ Hydrocodone Bitart (Talala 5-325 Mg) 1 tab Q6H PRN PO PAIN Last administered on 05/26/16at 20:46; Start 12/31/15 at 15:00; Stop 06/02/16 at 21: 44; Status DC Fentanyl Citrate (Sublimaze Inj) 25 mcg Q1H PRN IV PUSH BREAKTHROUGH PAIN; Start 12/31/15 at 15:00; Stop 03/06/16 at 10:03; Status DC Water (Free Water) 200 ml Q8H G-TUBE Last administered on 01/01/16at 17:55; Start 12/31/15 at 18:00; Stop 01/02/16 at 09:56; Status DC Sodium Chloride (Sodium Chloride) 1 gm BID TUBE Last administered on 01/03/16at 07:39; Start 12/31/15 at 21:00; Stop 01/03/16 at 09:08; Status DC Miscellaneous Information Hold Anticoagulation after midni... ONCE ONCE OTHER ; Start 01/01/16 at 10:15; Stop 01/01/16 at 10:29; Status DC Sodium Chloride (NS 1000 ml Inj) 1,000 ml @ 50 mls/hr Q20H IV Last administered on 01/02/16at 12:26; Start 01/01/16 at 18:00; Stop 01/03/16 at 10:07 ; Status DC Midazolam HCl (Versed Inj) 5 mg STK-MED ONCE .ROUTE ; Start 01/02/16 at 12:47; Stop 01/02/16 at 12:48; Status DC Vecuronium [place] (Norcuron 10 Mg Inj) 10 mg STK-MED ONCE .ROUTE ; Start at 12:47; Stop 01/02/16 at 12:48; Status DC Fentanyl Citrate (Sublimaze Inj) 250 mcg ONCE ONCE IV PUSH Last administered on 01/02/16at 15:00; Start 01/02/16 at 15:00; Stop 01/02/16 at 15:01; Status DC Midazolam HCl (Versed Inj) 10 mg ONCE ONCE IV PUSH Last administered on at 15:00; Start 01/02/16 at 15:00; Stop 01/02/16 at 15:01; Status DC Rocuronium [place] (Zemuron Inj) 100 mg BOLUS ONCE IV Last administered on at 15:00; Start 01/02/16 at 15:00; Stop 01/02/16 at 15:01; Status DC Ketamine HCl (Ketalar Inj) 500 mg STK-MED ONCE .ROUTE ; Start 01/02/16 at 14:30 ; Stop 01/02/16 at 14:31; Status DC Propofol 230 mg 230 mg STK-MED ONCE IV ; Start 01/02/16 at 16:51; Stop 01/02/16 at 16:52; Status DC Sodium Chloride (NS 1000 ml Inj) 1,000 ml @ 0 mls/hr Q0M IV ; Start 01/03/16 at 10:15; Stop 01/17/16 at 17:30; Status DC Ranitidine HCl (Zantac Liq) 150 mg Q12HR PO Last administered on 01/17/16at 07: 39; Start 01/04/16 at 09:00; Stop 01/17/16 at 15:23; Status DC Enoxaparin Sodium 90 mg 90 mg Q12HR SQ Last administered on 01/11/16at 10:01; Start 01/04/16 at 09:00; Stop 01/11/16 at 12:35; Status DC Sodium Chloride (NS 500 ml Inj) 500 ml @ 0 mls/hr BOLUS ONCE IV Last administered on 01/03/16at 22:57; Start 01/03/16 at 23:00; Stop 01/03/16 at 23:01 ; Status DC Insulin Aspart (NovoLOG SUPPLEMENTAL SCALE) 1 Q6HR SQ Last administered on at 12:00; Start 01/04/16 at 12:00; Stop 03/24/16 at 13:58; Status DC Potassium Chloride (KCl 40 Meq/30 ml Liq) 40 meq Q4H NG Last administered on at 16:21; Start 01/04/16 at 13:00; Stop 01/04/16 at 17:01; Status DC Warfarin Sodium 5 mg 5 mg DAILY@1600 PO Last administered on 01/09/16at 17:21; Start 01/04/16 at 16:00; Stop 01/10/16 at 10:06; Status DC Pharmacy Profile Note (Coumadin Consult Pharmacy) 0 ml @ 0 mls/hr UNSCH XX ; Start 01/04/16 at 12:30; Stop 04/20/16 at 12:04; Status DC Insulin Detemir (Levemir Inj) 10 units Q12HR SQ Last administered on 01/05/16at 08:00; Start 01/04/16 at 21:00; Stop 01/05/16 at 08:42; Status DC Insulin Detemir (Levemir Inj) 5 units NOW ONCE SQ Last administered on at 13:28; Start 01/04/16 at 12:45; Stop 01/04/16 at 12:46; Status DC Albuterol/ Ipratropium (Duoneb Neb) 1 ampule Q4HR NEB PRN NEB dyspnea Last administered on 04/19/16at 02:24; Start 01/07/16 at 08:15; Stop 04/25/16 at 18:54 ; Status DC Warfarin Sodium (Coumadin) 7.5 mg ONCE ONCE PO Last administered on 01/07/16at 16:40; Start 01/07/16 at 16:00; Stop 01/07/16 at 16:01; Status DC Nystatin (Mycostatin Powder) 1 applic Q12HR TOPICAL Last administered on t 09:00; Start 01/08/16 at 21:00 Ipratropium [place] (Atrovent Neb) 0.5 mg TID NEB NEB Last administered on 02/20at 13:17; Start 01/08/16 at 20:00; Stop 02/21/16 at 17:52; Status DC Warfarin Sodium (Coumadin) 5 mg DAILY@1600 PO Last administered on 01/11/16at 14 :26; Start 01/11/16 at 16:00; Stop 01/12/16 at 09:45; Status DC Warfarin Sodium (Coumadin) 6 mg ONCE PO Last administered on 01/10/16at 17:10; Start 01/10/16 at 16:00; Stop 01/10/16 at 21:00; Status DC Metoprolol Tartrate (Lopressor) 50 mg Q12HR GT Last administered on 01/11/16at 10:02; Start 01/10/16 at 11:00; Stop 01/11/16 at 12:30; Status DC Metoprolol Tartrate (Lopressor) 50 mg TID GT Last administered on 01/14/16at 08: 24; Start 01/11/16 at 13:00; Stop 01/14/16 at 08:28; Status DC Insulin Detemir (Levemir Inj) 10 units HS SQ Last administered on 01/11/16at 22: 23; Start 01/11/16 at 21:00; Stop 01/12/16 at 11:47; Status DC Warfarin Sodium (Coumadin) 4 mg DAILY@16 PO ; Start 6/24/16 at 16:00; Stop at 16:00; Status DC Insulin Detemir (Levemir Inj) 20 units HS SQ Last administered on 01/13/16at 20: 26; Start 01/12/16 at 21:00; Stop 01/14/16 at 08:28; Status DC Warfarin Sodium (Coumadin) 2 mg DAILY@16 PO Last administered on 01/13/16at 17: 05; Start 01/12/16 at 16:00; Stop 01/14/16 at 11:23; Status DC Insulin Detemir (Levemir Inj) 22 units HS SQ Last administered on 01/14/16at 21: 37; Start 01/14/16 at 21:00; Stop 01/15/16 at 10:06; Status DC Metoprolol Tartrate (Lopressor) 75 mg TID GT Last administered on 03/10/16at 17: 43; Start 01/14/16 at 09:00; Stop 03/10/16 at 21:13; Status DC Miscellaneous (Pill Splitter) 1 ea UNSCH PRN OTHER SEE LABEL COMMENTS; Start at 08:30 Warfarin Sodium (Coumadin) 4 mg DAILY@1600 PO Last administered on 01/21/16at 16: 51; Start 01/14/16 at 16:00; Stop 01/23/16 at 09:29; Status DC Patient Medication Teaching (Coumadin Booklet) 1 ONCE ONCE XX ; Start 01/14/16 at 16:00; Stop 01/14/16 at 16:01; Status DC Insulin Detemir (Levemir Inj) 24 units HS SQ Last administered on 03/04/16at 21: 09; Start 01/15/16 at 21:00; Stop 03/05/16 at 11:17; Status DC Citalopram Hydrobromide (CeleXA) 20 mg DAILY PEG Last administered on at 08:01; Start 01/16/16 at 09:00; Stop 01/16/16 at 09:41; Status DC Sennosides (Senna Liq) 8.8 mg BID TUBE Last administered on 02/20/16at 08:32; Start 01/15/16 at 21:00; Stop 02/20/16 at 16:13; Status DC Gadodiamide 18 ml 18 ml STK-MED ONCE IV ; Start 01/16/16 at 20:40; Stop at 20:41; Status DC Sodium Chloride (NS 1000 ml Inj) 1,000 ml @ 125 mls/hr Q8H IV Last administered on 01/17/16at 15:11; Start 01/17/16 at 15:00; Stop 01/17/16 at 17:31 ; Status DC Ranitidine HCl 150 mg 150 mg Q24H PO Last administered on 07/28/16t 08:54; Start 01/18/16 at 09:00; Stop 07/30/16 at 10:05; Status DC Sodium Chloride 1,000 ml @ 75 mls/hr [id number] IV Last administered on at 05:22; Start 01/17/16 at 18:00; Stop 01/18/16 at 09:28; Status DC Sodium Chloride/ Sterile Water (Sodium Chloride 23.4% Inj/Sterile Water For Inj ) 1,009.625 ml @ 60 mls/hr [id number] IV Last administered on 01/21/16at 22:46; Start 01/18/16 at 11:00; Stop 01/22/16 at 10:09; Status DC Potassium Chloride (KCl) 40 meq ONCE ONCE PO ; Start 01/18/16 at 09:30; Stop at 09:31; Status DC Potassium Chloride (KCl 40 Meq/30 ml Liq) 40 meq ONCE ONCE TUBE Last administered on 01/18/16at 11:08; Start 01/18/16 at 11:00; Stop 01/18/16 at 11:01 ; Status DC Water (Free Water) 300 ml Q4HR TUBE Last administered on 01/19/16at 08:00; Start 01/18/16 at 12:00; Stop 01/19/16 at 10:43; Status DC Water (Free Water) 400 ml Q4HR TUBE Last administered on 04/16/16at 04:00; Start 01/19/16 at 12:00; Stop 04/16/16 at 09:09; Status DC Potassium Chloride (KCl 40 Meq/30 ml Liq) 40 meq ONCE ONCE NG Last administered on 01/19/16at 11:41; Start 01/19/16 at 11:00; Stop 01/19/16 at 11:01; Status DC Potassium Chloride 60 meq 60 meq ONCE ONCE PO/TUBE Last administered on at 13:30; Start 01/21/16 at 11:15; Stop 01/21/16 at 11:27; Status DC Sodium Chloride (1/2 NS 1000 ml Inj) 1,000 ml @ 30 mls/hr Q24H IV Last administered on 02/06/16at 11:26; Start 01/22/16 at 11:00; Stop 02/07/16 at 14:49 ; Status DC Warfarin Sodium (Coumadin) 3 mg DAILY@16 PO Last administered on 01/23/16at 17:19 ; Start 01/23/16 at 16:00; Stop 01/24/16 at 14:05; Status DC Warfarin Sodium (Coumadin) 3 mg DAILY@16 PO Last administered on 01/25/16at 15:59 ; Start 01/25/16 at 16:00; Stop 01/26/16 at 15:04; Status DC Warfarin Sodium (Coumadin) 4 mg ONCE@1600 ONCE PO Last administered on at 16:55; Start 01/24/16 at 16:00; Stop 01/24/16 at 16:01; Status DC Warfarin Sodium (Coumadin) 3 mg DAILY@16 PO ; Start 01/27/16 at 16:00; Stop at 16:00; Status DC Warfarin Sodium (Coumadin) 4 mg ONCE@1600 ONCE PO Last administered on at 16:52; Start 01/26/16 at 16:00; Stop 01/26/16 at 16:01; Status DC Potassium Chloride (KCl 40 Meq/30 ml Liq) 80 meq ONCE ONCE PO Last administered on 01/27/16at 07:45; Start 01/27/16 at 07:45; Stop 01/27/16 at 08:10; Status DC Warfarin Sodium (Coumadin) 4 mg DAILY@16 PO Last administered on 02/02/16at 17: 22; Start 01/27/16 at 16:00; Stop 02/03/16 at 11:37; Status DC Acetic Acid (Acetic Acid 0.25% Irr Btl) 10 ml Q8HR IRRIGATION Last administered on 02/05/16at 06:00; Start 01/28/16 at 22:00; Stop 02/05/16 at 15:51 ; Status DC Warfarin Sodium 3 mg 3 mg DAILY@1600 PO Last administered on 02/11/16at 17:34; Start 02/03/16 at 16:00; Stop 02/12/16 at 12:45; Status DC Ceftriaxone Sodium/Sodium Chloride (Rocephin Inj/NS Inj) 100 ml @ 200 mls/hr Q24H IV Last administered on 02/10/16at 05:23; Start 02/05/16 at 06:30; Stop at 14:32; Status DC Acetic Acid (Acetic Acid 0.25% Irr Btl) 10 ml Q8HR IRRIGATION ; Start 02/05/16 at 16:00; Status Cancel Acetic Acid (Acetic Acid 0.25% Irr Btl) 10 ml Q8HR IRRIGATION Last administered on 09/14/16t 06:00; Start 02/05/16 at 16:00 Lactobacillus Acidophilus (Lactinex) 1 tab Q12HR PO Last administered on at 08:25; Start 02/10/16 at 21:00; Stop 02/12/16 at 16:05; Status DC Warfarin Sodium (Coumadin) 4 mg DAILY@1600 PO Last administered on 02/14/16at 15 :56; Start 02/12/16 at 16:00; Stop 02/15/16 at 10:17; Status DC Paroxetine HCl (Paxil Liq) 20 mg DAILY PEG Last administered on 02/25/16at 07:33 ; Start 02/16/16 at 09:00; Stop 02/25/16 at 10:36; Status DC Warfarin Sodium (Coumadin) 3 mg DAILY@1600 PO Last administered on 02/19/16at 16: 42; Start 02/15/16 at 16:00; Stop 02/20/16 at 08:50; Status DC Warfarin Sodium (Coumadin) 4 mg DAILY@16 PO Last administered on 02/21/16at 15:54 ; Start 02/20/16 at 16:00; Stop 02/22/16 at 08:46; Status DC Sennosides (Senna Liq) 8.8 mg DAILY TUBE Last administered on 05/26/16at 08:14 ; Start 02/21/16 at 09:00; Stop 05/27/16 at 11:51; Status DC Albuterol Sulfate (Albuterol Neb) 2.5 mg QID NEB INH Last administered on at 19:51; Start 02/21/16 at 20:00; Stop 02/25/16 at 20:00; Status DC Acetylcysteine (Mucomyst 10% Neb) 1 ml QID NEB NEB Last administered on at 16:32; Start 02/21/16 at 20:00; Stop 02/23/16 at 16:01; Status DC Warfarin Sodium (Coumadin) 3 mg DAILY@16 PO Last administered on 02/22/16at 15:59 ; Start 02/22/16 at 16:00; Stop 02/23/16 at 08:56; Status DC Warfarin Sodium (Coumadin) 3 mg DAILY@16 PO Last administered on 02/28/16at 16: 17; Start 02/24/16 at 16:00; Stop 02/29/16 at 10:04; Status DC Warfarin Sodium (Coumadin) 2 mg ONCE PO Last administered on 02/23/16at 16:22; Start 02/23/16 at 16:00; Stop 02/23/16 at 21:00; Status DC Paroxetine HCl (Paxil Liq) 20 mg DAILY@1900 PEG Last administered on 03/08/16at 18:11; Start 02/26/16 at 19:00; Stop 03/09/16 at 11:31; Status DC Warfarin Sodium (Coumadin) 3 mg DAILY@16 PO Last administered on 03/06/16at 16: 22; Start 03/01/16 at 16:00; Stop 03/09/16 at 10:30; Status DC Warfarin Sodium (Coumadin) 1 mg ONCE PO Last administered on 02/29/16at 17:28; Start 02/29/16 at 16:00; Stop 02/29/16 at 21:00; Status DC Insulin Detemir (Levemir Inj) 27 units HS SQ Last administered on 03/05/16at 20: 25; Start 03/05/16 at 21:00; Stop 03/06/16 at 10:03; Status DC Patient Medication Teaching (Coumadin Booklet) 1 ONCE ONCE XX Last administered on 03/05/16at 16:00; Start 03/05/16 at 16:00; Stop 03/05/16 at 16:01 ; Status DC Insulin Detemir (Levemir Inj) 30 units HS SQ Last administered on 03/21/16at 22: 32; Start 03/06/16 at 21:00; Stop 03/22/16 at 14:48; Status DC Trimethoprim/ Sulfamethoxazole (Bactrim 800-160 Mg/20 ml Liq) 20 ml Q12HR PO Last administered on 03/14/16at 08:01; Start 03/07/16 at 11:15; Stop 03/14/16 at 11:14; Status DC Lorazepam (Ativan Inj) 0.5 mg Q4H PRN IV PUSH seizures or agitation; Start at 23:00 Metronidazole (Flagyl) 500 mg Q8H PO Last administered on 03/14/16at 15:51; Start 03/08/16 at 17:00; Stop 03/14/16 at 23:00; Status DC Warfarin Sodium (Coumadin) 2 mg DAILY@16 PO Last administered on 03/09/16at 17: 20; Start 03/09/16 at 16:00; Stop 03/10/16 at 10:33; Status DC Paroxetine HCl (Paxil) 20 mg DAILY@1900 PEG Last administered on 03/11/16at 17: 55; Start 03/09/16 at 19:00; Stop 03/12/16 at 08:31; Status DC Warfarin Sodium 3 mg 3 mg DAILY@16 PO Last administered on 04/12/16at 15:28; Start 03/10/16 at 16:00; Stop 04/12/16 at 16:39; Status DC Pharmacy Profile Note 0 ml @ 0 mls/hr UNSCH OTHER ; Start 03/10/16 at 14:15; Stop 03/18/16 at 11:33; Status DC Vancomycin HCl/ Sodium Chloride (Vancomycin Inj/ NS 500 ml Inj) 530 ml @ 265 mls/hr Q12H IV Last administered on 03/17/16at 16:26; Start 03/10/16 at 16:00; Stop 03/17/16 at 23:00; Status DC Miscellaneous Information SPECIFIC LAB TO BE ... ONCE ONCE XX Last administered on 03/12/16at 04:45; Start 03/12/16 at 03:45; Stop 03/12/16 at 03:46 ; Status DC Metoprolol Tartrate (Lopressor) 75 mg Q8HR PO Last administered on 04/02/16at 13 :13; Start 03/10/16 at 22:00; Stop 04/02/16 at 17:31; Status DC Paroxetine HCl (Paxil Liq) 20 mg DAILY@1900 PEG Last administered on 09/13/16 18:11; Start 03/12/16 at 19:00 Warfarin Sodium (Coumadin) 1 mg ONCE PO Last administered on 03/21/16at 16:24; Start 03/21/16 at 16:00; Stop 03/21/16 at 21:00; Status DC Warfarin Sodium (Coumadin) 1 mg ONCE PO Last administered on 03/22/16at 17:46; Start 03/22/16 at 16:00; Stop 03/22/16 at 21:00; Status DC Insulin Detemir (Levemir Inj) 32 units HS SQ Last administered on 03/22/16at 20: 18; Start 03/22/16 at 21:00; Stop 03/23/16 at 13:35; Status DC Diltiazem HCl (Cardizem Cd) 120 mg DAILY PO Last administered on 04/14/16at 07: 43; Start 03/22/16 at 16:00; Stop 04/14/16 at 14:39; Status DC Hyoscyamine Sulfate (Levsin Liq) 0.125 mg Q4H PRN PEG INCREASED SECRETIONS Last administered on 04/10/16at 08:05; Start 03/22/16 at 15:15; Stop 04/11/16 at 10:24; Status DC Warfarin Sodium (Coumadin) 2 mg ONCE ONCE PO Last administered on 03/23/16 17: 26; Start 03/23/16 at 16:00; Stop 03/23/16 at 16:01; Status DC Insulin Detemir (Levemir Inj) 34 units HS SQ Last administered on 03/23/16at 20: 01; Start 03/23/16 at 21:00; Stop 03/24/16 at 13:53; Status DC Insulin Detemir (Levemir Inj) 35 units HS SQ Last administered on 09/13/16 21: 38; Start 03/24/16 at 21:00 Insulin Aspart (NovoLOG SUPPLEMENTAL SCALE) 1 ACHS SLIDING SCALE SQ Last administered on 04/16/16at 22:27; Start 03/24/16 at 16:00; Stop 04/19/16 at 17:19 ; Status DC Warfarin Sodium (Coumadin) 1 mg ONCE ONCE PO Last administered on 03/30/16at 16 :59; Start 03/30/16 at 16:00; Stop 03/30/16 at 16:01; Status DC Potassium Chloride (KCl 40 Meq/30 ml Liq) 40 meq ONCE ONCE NG Last administered on 03/31/16at 21:28; Start 03/31/16 at 18:30; Stop 03/31/16 at 18:31 ; Status DC Potassium Bicarb/ Potassium Chloride (K-Lyte Cl Eff) 25 meq ONCE ONCE PEG Last administered on 04/02/16at 12:01; Start 04/02/16 at 13:00; Stop 04/02/16 at 13:01; Status DC Metoprolol Tartrate (Lopressor) 75 mg BID PO Last administered on 05/28/16at 21: 03; Start 04/02/16 at 21:00; Stop 05/29/16 at 11:21; Status DC Potassium Bicarb/ Potassium Chloride (K-Lyte Cl Eff) 25 meq ONCE ONCE PEG Last administered on 04/04/16at 14:40; Start 04/04/16 at 12:30; Stop 04/04/16 at 12:31; Status DC Linezolid (Zyvox) 600 mg Q12HR PO Last administered on 04/16/16at 09:11; Start 04/05/16 at 15:00; Stop 04/16/16 at 12:00; Status DC Artificial Tears (Lacrilube Opht Oint) 1 applic Q12HR EACH EYE Last administered on 09/04/16 21:00; Start 04/10/16 at 11:00; Stop 09/05/16 at 14:38 ; Status DC Hyoscyamine Sulfate (Levsin) 0.25 mg Q4H PRN G-TUBE INCREASED SECRETIONS Last administered on 08/31/16 05:02; Start 04/11/16 at 10:30 Diatrizoate Meglum/ Diatrizoate Sod (Md Gastroview Liq) 18 ml ONCE ONCE PO Last administered on 04/12/16at 16:45; Start 04/12/16 at 16:15; Stop 04/12/16 at 16:16; Status DC Warfarin Sodium (Coumadin) 3 mg DAILY@16 PO ; Start 04/13/16 at 16:00; Stop 05/27/16 at 11:51; Status DC Iohexol (Omnipaque 350 Inj) 98 ml STK-MED ONCE IV Last administered on at 21:01; Start 04/12/16 at 21:01; Stop 04/12/16 at 21:02; Status DC Diltiazem HCl (Cardizem Cd) 180 mg DAILY PO ; Start 04/15/16 at 09:00; Stop at 08:50; Status DC Ondansetron HCl (Zofran Inj) 4 mg Q6HR PRN IV PUSH nausea/vomiting Last administered on 08/10/16t 10:16; Start 04/14/16 at 19:45 Diltiazem HCl 60 mg 60 mg QID PO Last administered on 04/25/16at 17:26; Start at 13:00; Stop 04/25/16 at 19:06; Status DC Sodium Chloride 500 ml @ 500 mls/hr BOLUS ONCE IV Last administered on at 09:15; Start 04/15/16 at 09:15; Stop 04/15/16 at 10:14; Status DC Potassium Chloride/Dextrose/ Sodium Chloride (KCl Inj/D5W-NS 1000 ml Inj) 1,005 ml @ 100 mls/hr Q10H3M IV Last administered on 04/15/16at 21:03; Start at 11:00; Stop 04/16/16 at 09:09; Status DC Enoxaparin Sodium (Lovenox Inj) 90 mg Q12H SQ Last administered on 04/16/16at 21 :12; Start 04/16/16 at 09:00; Stop 04/17/16 at 10:37; Status DC Water 200 ml 200 ml Q4HR TUBE Last administered on 09/14/16t 08:00; Start 04/16 at 12:00 Sodium Chloride 1,000 ml @ 84 mls/hr [id number] IV Last administered on at 08:38; Start 04/16/16 at 10:00; Stop 04/20/16 at 12:04; Status DC Ceftriaxone Sodium/Sodium Chloride (Rocephin Inj/NS Inj) 100 ml @ 200 mls/hr Q24H IV Last administered on 05/02/16at 13:19; Start 04/16/16 at 12:00; Stop 05/03/16 at 12:06; Status DC Acetaminophen/ Hydrocodone Bitart (Talala 5-325 Mg) 1 tab Q6HR PEG Last administered on 09/13/16t 18:11; Start 04/18/16 at 18:00 Lactulose (Lactulose Liq) 30 ml NOW ONCE PEG Last administered on 04/19/16at 17 :21; Start 04/19/16 at 17:30; Stop 04/19/16 at 17:31; Status DC Lactulose (Lactulose Liq) 30 ml DAILY PEG Last administered on 05/26/16at 08:14 ; Start 04/20/16 at 09:00; Stop 05/27/16 at 11:39; Status DC Potassium Bicarb/ Potassium Chloride (K-Lyte Cl Eff) 50 meq ONCE ONCE PO Last administered on 04/20/16at 05:52; Start 04/20/16 at 05:45; Stop 04/20/16 at 05:46; Status DC Furosemide (Lasix Inj) 20 mg ONCE ONCE IV PUSH Last administered on 04/20/16at 17:35; Start 04/20/16 at 12:00; Stop 04/20/16 at 12:06; Status DC Insulin Aspart (NovoLOG SUPPLEMENTAL SCALE) 1 ACHS SLIDING SCALE SQ Last administered on 06/02/16at 12:10; Start 04/20/16 at 16:00; Stop 06/02/16 at 21: 44; Status DC Dextrose (D50w (Vial) Inj) 25 ml UNSCH PRN IV HYPOGLYCEMIA-SEE COMMENTS; Start 04/20/16 at 12:00 Glucagon (Glucagon Inj) 1 mg UNSCH PRN IM/SQ HYPOGLYCEMIA-SEE COMMENTS; Start 04/20/16 at 12:00 Lactobacillus Acidophilus (Lactinex) 1 tab Q12HR PEG Last administered on 06/06at 21:34; Start 04/22/16 at 09:00; Stop 06/07/16 at 09:32; Status DC Furosemide (Lasix Inj) 20 mg Q12H IV PUSH Last administered on 04/24/16at 08:52 ; Start 04/22/16 at 09:00; Stop 04/24/16 at 09:25; Status DC Potassium Bicarb/ Potassium Chloride (K-Lyte Cl Eff) 25 meq Q12HR TUBE Last administered on 05/27/16at 08:17; Start 04/22/16 at 09:00; Stop 05/27/16 at 11:51 ; Status DC Albumin Human (Albumin 25% Inj) 12.5 gm Q12H IV Last administered on 04/24/16at 08:46; Start 04/22/16 at 09:00; Stop 04/24/16 at 09:25; Status DC Furosemide (Lasix Inj) 20 mg DAILY IV PUSH Last administered on 05/08/16at 09: 01; Start 04/25/16 at 09:00; Stop 05/08/16 at 11:06; Status DC Albumin Human (Albumin 25% Inj) 12.5 gm DAILY IV Last administered on at 09:02; Start 04/25/16 at 10:00; Stop 05/08/16 at 11:06; Status DC Furosemide (Lasix Inj) 40 mg ONCE ONCE IV PUSH Last administered on 04/25/16at 18:15; Start 04/25/16 at 18:15; Stop 04/25/16 at 18:16; Status DC Albuterol/ Ipratropium (Duoneb Neb) 1 ampule Q6HR NEB NEB Last administered on 04/27/16at 15:52; Start 04/25/16 at 18:30; Stop 04/27/16 at 19:45; Status DC Ipratropium [place] (Atrovent Neb) 0.5 mg Q6HR NEB NEB Last administered on at 16:51; Start 04/25/16 at 22:00; Stop 04/27/16 at 16:44; Status DC Levalbuterol HCl (Xopenex Neb) 0.31 mg Q4HR NEB NEB Last administered on at 23:48; Start 04/25/16 at 20:00; Stop 04/27/16 at 16:43; Status DC Levalbuterol HCl (Xopenex Neb) 0.31 mg Q2HR NEB PRN NEB SHORTNESS OF BREATH; Start 04/25/16 at 18:45; Stop 04/28/16 at 10:50; Status DC Diltiazem HCl (Cardizem) 90 mg QID PEG Last administered on 07/17/16at 09:27; Start 04/25/16 at 21:00; Stop 07/17/16 at 17:52; Status DC Diltiazem HCl (Cardizem) 30 mg NOW ONCE PEG Last administered on 04/25/16at 21: 36; Start 04/25/16 at 19:15; Stop 04/25/16 at 19:16; Status DC Levalbuterol HCl (Xopenex Neb) 0.31 mg Q8HR NEB NEB ; Start 04/28/16 at 00:00; Stop 04/28/16 at 10:50; Status DC Levalbuterol HCl (Xopenex Neb) 0.63 mg Q4HR NEB PRN NEB SHORTNESS OF BREATH Last administered on 05/04/16at 15:26; Start 04/28/16 at 11:00; Stop 05/04/16 at 00:51; Status DC Levalbuterol HCl (Xopenex Neb) 0.63 mg Q8HR NEB NEB Last administered on 05/04at 00:07; Start 04/28/16 at 16:00; Stop 05/04/16 at 00:50; Status DC Polyethylene Glycol/ Electrolytes 4000 ml 4,000 ml ONCE ONCE PO Last administered on 05/05/16at 08:10; Start 05/05/16 at 08:45; Stop 05/05/16 at 08 :46; Status DC Cefazolin Sodium/ Dextrose 50 ml @ 100 mls/hr ONCE ONCE IV ; Start 05/06/16 at 14:00; Stop 05/06/16 at 14:29; Status DC Metronidazole 100 ml @ 100 mls/hr ONCE ONCE IV Last administered on at 14:00; Start 05/06/16 at 14:00; Stop 05/06/16 at 14:59; Status DC Ceftriaxone Sodium/Sodium Chloride (Rocephin Inj/NS Inj) 100 ml @ 200 mls/hr Q24H IV Last administered on 06/09/16at 12:36; Start 05/03/16 at 12:00; Stop 06/10/16 at 12:48; Status DC Levalbuterol HCl (Xopenex Neb) 0.63 mg Q8HR NEB NEB Last administered on 05/05at 08:00; Start 05/04/16 at 00:49; Stop 05/05/16 at 08:07; Status DC Levalbuterol HCl (Xopenex Neb) 0.63 mg Q4HR NEB PRN NEB SHORTNESS OF BREATH Last administered on 08/02/16 13:48; Start 05/05/16 at 12:00 Levalbuterol HCl (Xopenex Neb) 0.63 mg Q8HR NEB NEB Last administered on 05/08at 23:56; Start 05/05/16 at 08:15; Stop 05/09/16 at 08:15; Status DC Potassium Bicarb/ Potassium Chloride (K-Lyte Cl Eff) 25 meq DAILY TUBE Last administered on 09/14/16 09:01; Start 05/28/16 at 09:00 Aspirin (Aspirin) 325 mg DAILY TUBE Last administered on 09/14/16 09:03; Start 05/27/16 at 11:40 Docusate Sodium (Colace Liq) 100 mg DAILY PRN PO constipation Last administered on 08/16/16 21:09; Start 05/27/16 at 11:45; Stop 08/31/16 at 09:00 ; Status DC Metoprolol Tartrate (Lopressor) 50 mg BID PO Last administered on 08/23/16 09: 03; Start 05/29/16 at 21:00; Stop 08/23/16 at 15:33; Status DC Acetaminophen/ Hydrocodone Bitart (Talala 5-325 Mg) 1 tab Q6H PRN TUBE BREAKTHROUGH PAIN Last administered on 08/02/16 15:11; Start 06/03/16 at 03:00 Insulin Aspart (NovoLOG SUPPLEMENTAL SCALE) 1 ACHS SLIDING SCALE SQ Last administered on 06/06/16at 21:35; Start 06/03/16 at 07:00; Stop 06/07/16 at 12 :24; Status DC Lactobacillus Acidophilus (Lactinex) 1 tab TID PEG Last administered on 09:02; Start 06/07/16 at 13:00 Insulin Aspart 1 1 AC BREAKFAST SQ Last administered on 09/06/16 07:00; Start 06/08/16 at 07:00 Ceftriaxone Sodium/Sodium Chloride (Rocephin Inj/NS Inj) 100 ml @ 200 mls/hr Q24H IV Last administered on 07/28/16 12:19; Start 06/10/16 at 12:00; Stop 07/29/16 at 13:30; Status DC Heparin Sodium (Porcine) (Heparin Inj) 5,000 units Q12HR SQ Last administered on 06/11/16at 00:58; Start 06/10/16 at 14:15; Stop 06/11/16 at 06:21; Status DC Heparin Sodium (Porcine) (Heparin Inj) 5,000 units Q8HR SQ Last administered on 09/14/16 06:00; Start 06/11/16 at 14:00 Diltiazem HCl (Cardizem) 30 mg QID PEG Last administered on 08/16/16 08:31; Start 07/17/16 at 18:00; Stop 08/16/16 at 12:06; Status DC Bacitracin 1 applic 1 applic BID TOP Last administered on 09/13/16 21:00; Start 07/20/16 at 10:00 Lactated Ringer's 1,000 ml @ 30 mls/hr Q24H IV ; Start 07/21/16 at 17:45; Stop 08/14/16 at 12:08; Status DC Sodium Chloride (NS 500 ml Inj) 500 ml @ 30 mls/hr [id number] IV ; Start 07/21/16 at 17:45; Stop 07/22/16 at 17:44; Status DC Insulin Human Regular (NovoLIN R INJ) See Protocol Table ... UNSCH X1 PRN SQ SEE PROTOCOL; Start 07/21/16 at 17:45; Stop 07/22/16 at 17:44; Status DC Metoprolol Tartrate (Lopressor) 25 mg UNSCH X1 PRN PO SEE LABEL COMMENTS; Start 07/21/16 at 17:45; Stop 07/22/16 at 17:44; Status DC Lidocaine/ Epinephrine (Xylocaine-Epi 1%-1:100,000 Inj) 40 ml STK-MED ONCE .ROUTE Last administered on 07/22/16 10:56; Start 07/22/16 at 10:04; Stop at 10:05; Status DC Ketamine HCl (Ketalar Inj) 500 mg STK-MED ONCE .ROUTE ; Start 07/22/16 at 10:50; Stop 07/22/16 at 10:51; Status DC Propofol 600 mg 600 mg STK-MED ONCE IV ; Start 07/22/16 at 12:00; Stop 07/23/16 at 14:36; Status DC Dextrose 1,000 ml @ 40 mls/hr Q24H ONCE IV Last administered on 07/28/16 14:33 ; Start 07/28/16 at 14:00; Stop 07/29/16 at 13:59; Status DC Ampicillin Sodium/ Sulbactam Sodium/ Sodium Chloride (Unasyn Inj/NS Inj) 100 ml @ 200 mls/hr Q6H IV Last administered on 08/01/16 12:30; Start 07/29/16 at 14: 00; Stop 08/01/16 at 14:13; Status DC Ondansetron HCl 4 mg 4 mg ONCE ONCE IV PUSH Last administered on 07/30/16 02: 46; Start 07/30/16 at 00:30; Stop 07/30/16 at 00:33; Status DC Lactated Ringer's 1,000 ml @ 30 mls/hr Q24H IV ; Start 07/30/16 at 06:00; Stop 08/14/16 at 12:09; Status DC Sodium Chloride (NS 500 ml Inj) 500 ml @ 30 mls/hr [id number] IV ; Start 07/30/16 at 06:00; Stop 07/31/16 at 05:59; Status DC Pantoprazole Sodium (Protonix Inj) 40 mg Q12H IV PUSH Last administered on 09/14 10:30; Start 07/30/16 at 10:15 Propofol 200 mg 200 mg STK-MED ONCE IV ; Start 07/30/16 at 09:41; Stop 07/30/16 at 10:19; Status DC Piperacillin Sod/ Tazobactam Sod (Zosyn 4.5 Gm Premix) 100 ml @ 200 mls/hr Q6H IV Last administered on 08/07/16 09:37; Start 08/01/16 at 16:00; Stop at 16:10; Status DC Linezolid (Zyvox) 600 mg Q12HR PO Last administered on 08/22/16 09:10; Start at 21:00; Stop 08/22/16 at 15:55; Status DC Sodium Chloride ([place]) 1 spray BID NASAL Last administered on 21:00; Start 08/01/16 at 21:00 Metronidazole 500 mg 500 mg Q8H PO Last administered on 08/08/16 08:28; Start 08/07/16 at 16:00; Stop 08/08/16 at 16:10; Status DC Sodium Chloride (NS 1000 ml Inj) 1,000 ml @ 42 mls/hr [id number] IV Last administered on 08/14/16 12:44; Start 08/14/16 at 12:00; Stop 08/15/16 at 10:56 ; Status DC Fentanyl Citrate (fentaNYL INJ) 250 mcg STK-MED ONCE .ROUTE Last administered on 08/14/16 15:36; Start 08/14/16 at 15:36; Stop 08/14/16 at 15:37; Status DC Iohexol (Omnipaque 350 Inj) 30 ml STK-MED ONCE G-TUBE Last administered on 08/14 15:45; Start 08/14/16 at 15:52; Stop 08/14/16 at 15:53; Status DC Diltiazem HCl (Cardizem) 30 mg QID PEG Last administered on 09/14/16 09:02; Start 08/16/16 at 13:00 Polyethylene Glycol (Miralax) 17 gm ONCE ONCE PEG Last administered on 11:32; Start 08/17/16 at 12:00; Stop 08/17/16 at 12:01; Status DC Amoxicillin 500 mg 500 mg Q8HR PO Last administered on 09/14/16 06:00; Start 08/22/16 at 22:00 Cefepime HCl/ Sodium Chloride (Maxipime Inj/NS Inj) 100 ml @ 200 mls/hr Q8H IV Last administered on 09/03/16 10:46; Start 08/23/16 at 16:00; Stop 09/03/16 at 15:02; Status DC Metoprolol Tartrate (Lopressor) 75 mg BID PO Last administered on 09/13/16 08: 42; Start 08/23/16 at 21:00; Stop 09/13/16 at 13:09; Status DC Docusate Sodium (Colace Liq) 100 mg BID PO Last administered on 09/14/16 09:02 ; Start 08/30/16 at 21:00 Sennosides (Senokot) 17.2 mg DAILY PO Last administered on 09/14/16 09:02; Start 08/30/16 at 14:00 Lactulose (Lactulose Liq) 30 ml DAILY PO Last administered on 09/14/16 09:01; Start 09/02/16 at 15:30 Artificial Tears (Tears Naturale Opth Soln) 1 drop BID EACH EYE Last administered on 09/13/16 21:00; Start 09/05/16 at 21:00 Midazolam HCl (Versed Inj) 2 mg STK-MED ONCE .ROUTE Last administered on 11:37; Start 09/09/16 at 11:37; Stop 09/09/16 at 11:38; Status DC Fentanyl Citrate (fentaNYL INJ) 100 mcg STK-MED ONCE .ROUTE Last administered on 09/09/16 11:38; Start 09/09/16 at 11:38; Stop 09/09/16 at 11:39; Status DC Iohexol (Omnipaque 350 Inj) 20 ml STK-MED ONCE G-TUBE Last administered on 09/09 11:50; Start 09/09/16 at 11:50; Stop 09/09/16 at 12:15; Status DC Metoprolol Tartrate (Lopressor) 50 mg BID PO Last administered on 09/14/16 09: 02; Start 09/13/16 at 21:00 Date of Insertion: Aug 03, 2016 A/P Assessment and Plan A/P 60-year-old male with: 1. 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 Patient is nonverbal. Continue Keppra for seizure prophylaxis. PT/OT signed off as patient is unable to participate. 2. Chronic respiratory failure: Secondary to CVA. Status post tracheostomy. Continue pulmonary toilet and bronchodilators as needed. Continue trach care, suctioning. Levsin as needed. On 28% FiO2 09/06. 3. Atrial fibrillation: Continue rate control with Cardizem and metoprolol. Echocardiogram in November 2015 shows preserved ejection fraction. Coumadin discontinued secondary to bleeding. Continue aspirin and prophylactic heparin dose. HR well controlled 09/06. 4. History of non-Hodgkin's lymphoma: Status post brain biopsy on December 13 by neurosurgery. Pathology consistent with acute infarct without evidence of lymphoma. Oncology signed off. 5. Diabetes mellitus: Hemoglobin A1c is 7. Continue Levemir. Monitor Accu-Cheks and cover with sliding scale insulin. Glucose well controlled 09/06. 6. Decubitus ulcer stage IV: Continue wound care, twice-daily dressing changes. Wound care recommendations. Continue pressure relief measures including turning and positioning. Patient's family has declined a diverting colostomy. Wound culture growing Klebsiella. Antibiotics per infectious disease. Status post wide excision of sacral skin and biopsy of the cavity lining with debridement on 07/22/16. 7. Gastric ulcer, reflux esophagitis: EGD on 07/30/16 showed gastric ulcers. Appreciate GI recommendations. Continue PPI. H&H stable. Check CBC 09/07. 8. UTI pseudomonas aeruginosa treated with abx . Repeat Ucx 08/28/16 negative. 9. Constipation: The pt has been noted to be straining when having bowel movements. Increase bowel regimen. KUB with mild constipation 08/31. Added lactulose 09/02. FEN: Continue Nepro tube feeds. Follow up with dietary recommendations. Continue free water flushes. Supplement potassium. DVT prophylaxis: SCDs/ subq heparin. Discharge Planning dc planning to SNF-no funding- SSI pending. Medardo Au MD Sep 14, 2016 12:12 Medardo Au MD Sep 14, 2016 12:12
[2016-09-14] MEDS: PARoxetine HCL SUSP 20 MG/10 ML UDC PEG SCH (19:08)
--- NOTE | 2016-09-14 19:20 | HHI.PR ---
Subjective Remarks no change on o2 , o2 SAT 96% trach ok Objective Vital Signs Date Time Temp Pulse Resp B/P Pulse Ox O2 Delivery O2 Flow Rate FiO2 09/14/16 16:00 97.3 75 21 113/72 100 09/14/16 12:00 96.6 80 23 116/70 98 09/14/16 11:00 100 T-piece 6.00 28 09/14/16 08:00 96.4 88 23 119/76 99 09/14/16 04:30 T-Piece 6.00 28 Humidified 09/14/16 03:23 98.1 79 19 127/74 98 09/14/16 00:34 97.9 75 19 127/77 98 09/13/16 23:51 97 T-piece 6.00 28 09/13/16 20:17 97.3 78 19 121/71 97 09/13/16 20:00 76 I/O 09/13/16 09/13/16 09/13/16 09/14/16 09/14/16 09/14/16 07:00 15:00 23:00 07:00 15:00 23:00 Intake Total 855 ml 1198 ml 671 ml 822 ml Output Total 800 ml 550 ml 975 ml 550 ml 725 ml Balance 55 ml 648 ml -304 ml 272 ml -725 ml Tube Feeding 405 ml 398 ml 421 ml 422 ml Other 450 ml 800 ml 250 ml 400 ml Output Urine Total 800 ml 550 ml 975 ml 550 ml 725 ml # Bowel Movements 1 0 3 Procedures 01/02/16 PEG placement 01/02/16 tracheostomy 07/22/2016 Wide excision of sacral skin wound, biopsy of the cavity lining and debridement. PEG tube replacement 07/29/16 Objective Remarks GENERAL: SKIN: Warm and dry. HEAD: Atraumatic. Normocephalic. EYES: Pupils equal and round. No scleral icterus. No injection or drainage. ENT: No nasal bleeding or discharge. Mucous membranes pink and moist. NECK: Trachea midline. No JVD. TRACH. [place] CARDIOVASCULAR: Regular rate and rhythm. RESPIRATORY: No accessory muscle use. Clear to auscultation. Breath sounds equal bilaterally. GASTROINTESTINAL: Abdomen soft, non-tender, nondistended. Hepatic and splenic margins not palpable. MUSCULOSKELETAL: Extremities without clubbing, cyanosis, or edema. No obvious deformities. NEUROLOGICAL: Awake and alert. No obvious cranial nerve deficits. Motor grossly within normal limits. Five out of 5 muscle strength in the arms and legs. Normal speech. PSYCHIATRIC: Appropriate mood and affect; insight and judgment normal. Assessment and Plan Assessment and Plan respiratory failure CVA S/P TRACHEOSTOMY PLAN O2 NEEDED PULM. TOILET Brandon Taylor MD Sep 14, 2016 19:20
[2016-09-14] MEDS: INSULIN DETEMIR 100 UNITS/ML VIAL SQ SCH (22:21)
[2016-09-15] VITALS (8 sets, daily range): BP systolic 109–139; BP diastolic 63–84; PULSE 78–93; RESP 20–22; TEMP 96.2–98.4; O2SAT 98–100
[2016-09-15] MEDS: FREE WATER TUBE SCH ×6 (04:00→20:00)
[2016-09-15] MEDS: ACETAMINOPHEN/HYDROcodone 325 MG/5 MG TAB PEG SCH ×4 (06:00→18:00)
[2016-09-15] MEDS: HEPARIN SODIUM - SQ 10,000 UNITS/ML VIAL SQ SCH ×3 (06:17→21:47)
[2016-09-15] MEDS: ACETIC ACID 0.25% SOLN 1000 ML IRR BTL IRRIGATION SCH ×3 (06:17→21:48)
[2016-09-15] MEDS: AMOXICILLIN (TRIHYDRATE) 500 MG CAP PO SCH ×3 (06:17→21:47)
[2016-09-15] MEDS: INSULIN ASPART SUPPLEMENTAL SCALE SQ SCH (07:00)
[2016-09-15] MEDS: SODIUM CHLORIDE 0.65% NASAL SPRAY 45 ML BTL NASAL SCH ×2 (09:00→21:44)
[2016-09-15] MEDS: ARTIFICIAL TEARS OPTH SOLN 15 ML BTL EACH EYE SCH ×2 (09:00→21:43)
[2016-09-15] MEDS: NYSTATIN 100,000 U/GM PWD 15 GM BTL TOPICAL SCH ×2 (09:00→21:48)
[2016-09-15] MEDS: BACITRACIN TOP OINT 15 GM TUBE TOP SCH ×2 (09:00→21:48)
[2016-09-15] MEDS: POTASSIUM CHLORIDE 25 MEQ EFFERVESCENT TAB TUBE SCH (09:14)
[2016-09-15] MEDS: DOCUSATE SODIUM 100 MG/10 ML UDC PO SCH ×2 (09:15→21:45)
[2016-09-15] MEDS: ASPIRIN 325 MG TAB TUBE SCH (09:15)
[2016-09-15] MEDS: LACTOBACILLUS ACIDOPHILUS TAB PEG SCH ×3 (09:15→18:00)
[2016-09-15] MEDS: SENNOSIDES 8.6 MG TAB PO SCH (09:15)
[2016-09-15] MEDS: levETIRAcetam 500 MG/5 ML UDC TUBE SCH ×2 (09:15→21:46)
[2016-09-15] MEDS: LACTULOSE SYRUP 20 GM/30 ML CUP PO SCH (09:15)
[2016-09-15] MEDS: DILTIAZEM HCL 30 MG TAB PEG SCH ×4 (09:15→21:45)
[2016-09-15] MEDS: METOPROLOL TARTRATE 50 MG TAB PO SCH ×2 (09:16→21:45)
[2016-09-15] MEDS: PANTOPRAZOLE SODIUM 40 MG VIAL IV PUSH SCH ×2 (11:09→21:47)
--- NOTE | 2016-09-15 13:12 | HHI.PR ---
Subjective Remarks f/u with CVA patient does not follow commands but I was able to wake him up. His at bedside and stated he does follow commands but he is tired now. She stated she still cannot talk. Otherwise no other issues. Objective Vitals Vital Signs Date Time Temp Pulse Resp B/P Pulse Ox O2 Delivery O2 Flow Rate FiO2 09/15/16 12:00 98.4 86 22 139/84 100 09/15/16 08:50 99 T-piece 6.00 28 09/15/16 08:50 99 T-piece 6.00 28 09/15/16 08:00 98.0 93 22 119/75 98 09/15/16 04:36 96.6 85 20 128/81 98 09/15/16 00:16 97.9 82 20 116/67 99 09/14/16 21:00 100 T-Piece 28 09/14/16 20:44 98.0 84 20 117/69 98 09/14/16 16:00 97.3 75 21 113/72 100 I/O 09/14/16 09/14/16 09/14/16 09/15/16 09/15/16 09/15/16 07:00 15:00 23:00 07:00 15:00 23:00 Intake Total 822 ml Output Total 550 ml 725 ml 800 ml 400 ml Balance 272 ml -725 ml -800 ml -400 ml Tube Feeding 422 ml Other 400 ml Output Urine Total 550 ml 725 ml 800 ml 400 ml # Bowel Movements 3 Objective Remarks Gen NAD CV RRR. no r//g Resp trach in place CTA B/L abd soft NDNT NEURO arousable but does not follow commands. Procedures 01/02/16 PEG placement 01/02/16 tracheostomy 07/22/2016 Wide excision of sacral skin wound, biopsy of the cavity lining and debridement. PEG tube replacement 07/29/16 Medications and IVs Current Medications IV Flush (NS Flush) 2 ml UNSCH PRN IVF FLUSH AFTER USING IV ACCESS Last administered on 09/13/16t 21:44; Start 12/21/15 at 06:00 Ondansetron HCl (Zofran Inj) 4 mg STK-MED ONCE .ROUTE ; Start 12/21/15 at 06:22; Stop 12/21/15 at 06:23; Status DC Ondansetron HCl (Zofran Inj) 4 mg ONCE ONCE IV PUSH Last administered on at 06:43; Start 12/21/15 at 06:30; Stop 12/21/15 at 06:31; Status DC Diltiazem HCl 20 mg 20 mg ONCE ONCE IV Last administered on 12/21/15at 06:42; Start 12/21/15 at 06:30; Stop 12/21/15 at 06:31; Status DC Diltiazem HCl/ Sodium Chloride (Cardizem Inj/NS Inj) 125 ml @ 0 mls/hr TITRATE IV Last administered on 12/21/15at 06:47; Start 12/21/15 at 06:30; Stop 12/21/15 at 13:00; Status DC Acetaminophen (Tylenol) 650 mg ONCE ONCE PO ; Start 12/21/15 at 06:45; Stop 12/20 at 06:46; Status DC Lorazepam (Ativan Inj) 1 mg ONCE ONCE IV PUSH Last administered on 12/21/15at 07 :22; Start 12/21/15 at 07:15; Stop 12/21/15 at 07:16; Status DC Etomidate (Amidate Inj) 40 mg STK-MED ONCE .ROUTE Last administered on at 08:17; Start 12/21/15 at 07:37; Stop 12/21/15 at 07:38; Status DC Succinylcholine Chloride 200 mg 200 mg STK-MED ONCE .ROUTE Last administered on 12/21/15at 08:18; Start 12/21/15 at 07:37; Stop 12/21/15 at 07:38; Status DC Propofol (Diprivan 1000 Mg/100ml Inj) 100 ml @ As Directed STK-MED ONCE .ROUTE Last administered on 12/21/15at 08:19; Start 12/21/15 at 07:46; Stop 12/21/15 at 07:47; Status DC Propofol (Diprivan 1000 Mg/100ml Inj) search Sets for Drip. NOW PRN IV SEDATION Last administered on 12/22/15at 06:25; Start 12/21/15 at 08:30; Stop 12/28 at 15:43; Status DC Gadodiamide (Omniscan Pf Inj) 18 ml STK-MED ONCE IV Last administered on at 10:11; Start 12/21/15 at 10:11; Stop 12/21/15 at 10:12; Status DC Pantoprazole Sodium (Protonix Inj) 40 mg DAILY IV Last administered on at 07:39; Start 12/21/15 at 13:00; Stop 01/03/16 at 10:10; Status DC Albuterol/ Ipratropium (Duoneb Neb) 1 ampule Q6HR NEB INH Last administered on 12/25/15at 07:51; Start 12/21/15 at 13:00; Stop 12/25/15 at 13:00; Status DC Miscellaneous Information 1 [id number] Last administered on 12/21/15at 13:00; Start 12/21/15 at 13:00; Stop 01/12/16 at 11:47; Status DC Chlorhexidine Gluconate (Chlorhexidine 2% Cloth) 3 pack Taper DAILY@04 TOP Last administered on 01/11/16at 04:10; Start 12/22/15 at 04:00; Stop 01/12/16 at 11:47; Status DC Chlorhexidine Gluconate 3 pack 3 pack UNSCH PRN TOP HYGIENIC CARE; Start at 13:00; Stop 01/12/16 at 11:47; Status DC Sodium Chloride (NS 1000 ml Inj) 1,000 ml @ 75 mls/hr [id number] IV Last administered on 12/22/15at 17:00; Start 12/21/15 at 13:00; Stop 12/22/15 at 19:01; Status DC Dextrose (D50w (Vial) Inj) 25 ml UNSCH PRN IV PUSH HYPOGLYCEMIA-SEE COMMENTS; Start 12/21/15 at 13:00; Stop 04/19/16 at 17:19; Status DC Glucagon (Glucagon Inj) 1 mg UNSCH PRN OTHER HYPOGLYCEMIA-SEE COMMENTS; Start 12/21/15 at 13:00; Stop 04/19/16 at 17:19; Status DC Insulin Human Regular (NovoLIN R SUPPLEMENTAL SCALE) 1 Q6H SQ Last administered on 01/04/16at 06:31; Start 12/21/15 at 13:00; Stop 01/04/16 at 10:05 ; Status DC Levetriacetam (Keppra) 500 mg Q12HR PO Last administered on 12/27/15at 09:00; Start 12/21/15 at 13:45; Stop 12/27/15 at 09:44; Status DC Heparin Sodium (Porcine) (Heparin Inj) 5,000 units BID SQ Last administered on 12/22/15at 20:52; Start 12/21/15 at 21:00; Stop 12/23/15 at 08:32; Status DC Warfarin Sodium (Coumadin) 7.5 mg ONCE ONCE PO Last administered on 12/21/15at 21:43; Start 12/21/15 at 21:00; Stop 12/21/15 at 21:01; Status DC Warfarin Sodium (Coumadin) 5 mg DAILY@16 PO Last administered on 12/23/15at 16:00 ; Start 12/22/15 at 16:00; Stop 12/26/15 at 09:29; Status DC Patient Medication Teaching (Coumadin Booklet) 1 ONCE ONCE XX Last administered on 12/21/15at 20:15; Start 12/21/15 at 20:15; Stop 12/21/15 at 20:16; Status DC Chlorhexidine Gluconate (Peridex 0.12% Liq) 15 ml BID@08,20 MT Last administered on 01/12/16at 08:00; Start 12/22/15 at 20:00; Stop 01/12/16 at 11:47 ; Status DC Gadodiamide 20 ml 20 ml STK-MED ONCE IV Last administered on 12/22/15at 09:55; Start 12/22/15 at 09:55; Stop 12/22/15 at 09:56; Status DC Pharmacy Profile Note ml @ 0 mls/hr UNSCH OTHER ; Start 12/22/15 at 11:00; Stop 12/22/15 at 19:43; Status DC Sodium Chloride 1,000 ml @ 50 mls/hr Q20H IV Last administered on 12/24/15at 20: 02; Start 12/22/15 at 18:44; Stop 12/25/15 at 11:52; Status DC Pharmacy Profile Note (Coumadin Consult Pharmacy) 0 ml @ 0 mls/hr UNSCH OTHER ; Start 12/22/15 at 19:45; Stop 01/04/16 at 12:25; Status DC Acetaminophen 650 mg 650 mg Q6H PRN PO TEMP > 100 Last administered on at 13:24; Start 12/23/15 at 02:45; Stop 12/30/15 at 15:04; Status DC Potassium Chloride 100 ml @ 50 mls/hr Q2H PRN IV For Potassium 2.8 - 3.2 mEq/L ; Start 12/23/15 at 08:30; Stop 01/09/16 at 11:14; Status DC Potassium Chloride (KCl 20 Meq Premix Inj) 100 ml @ 50 mls/hr Q2H PRN IV For Potassium 2.8 - 3.2 mEq/L; Start 12/23/15 at 08:30; Stop 01/09/16 at 11:14; Status DC Potassium Chloride 40 meq 40 meq UNSCH PRN PO/TUBE For Potassium 3.3 - 3.5 mEq/ L; Start 12/23/15 at 08:30; Stop 01/09/16 at 11:14; Status DC Potassium Chloride 100 ml @ 25 mls/hr UNSCH PRN IV For Potassium 3.3 - 3.5 mEq /L; Start 12/23/15 at 08:30; Stop 01/09/16 at 11:14; Status DC Potassium Chloride 100 ml @ 50 mls/hr Q2H PRN IV For Potassium 3.3 - 3.5 mEq/L ; Start 12/23/15 at 08:30; Stop 01/09/16 at 11:14; Status DC Magnesium Sulfate/ Sodium Chloride (Magnesium Sulfate Inj/NS Inj) 100 ml @ 50 mls/hr UNSCH PRN IV For Magnesium 0.9 - 1.1 mg/dL; Start 12/23/15 at 08:30; Stop 01/09/16 at 11:14; Status DC Magnesium Oxide 800 mg 800 mg UNSCH PRN PO For Magnesium 1.2 - 1.6 mg/dL; Start 12/23/15 at 08:30; Stop 01/09/16 at 11:14; Status DC Magnesium Sulfate/ Sodium Chloride (Magnesium Sulfate Inj/NS Inj) 100 ml @ 50 mls/hr UNSCH PRN IV For Magnesium 1.2 - 1.6 mg/dL; Start 12/23/15 at 08:30; Stop 01/09/16 at 11:14; Status DC Potassium Phosphate 2000 mg 2,000 mg Q4H PRN PO For Phosphorus < 2.5 mg/dL; Start 12/23/15 at 08:30; Stop 01/09/16 at 11:14; Status DC Sodium Phosphate/ Sodium Chloride (Sodium Phosphate Inj/NS 250 ml Inj) 250 ml @ 42 mls/hr UNSCH PRN IV For Phosphorus < 2.5 mg/dL; Start 12/23/15 at 08:30; Stop 01/09/16 at 11:14; Status DC Potassium Chloride (KCl 40 Meq/30 ml Liq) 40 meq UNSCH PRN PO/TUBE SEE LABEL COMMENTS; Start 12/23/15 at 08:30; Stop 01/09/16 at 11:14; Status DC Potassium Phosphate 2000 mg 2,000 mg UNSCH PRN PO/TUBE SEE LABEL COMMENTS; Start 12/23/15 at 08:30; Stop 01/09/16 at 11:14; Status DC Potassium Phosphate 30 mmol/ Sodium Chloride 260 ml @ 42 mls/hr UNSCH PRN IV SEE LABEL COMMENTS; Start 12/23/15 at 08:30; Stop 01/09/16 at 11:14; Status DC Sodium Chloride 1,000 ml @ 75 mls/hr [id number] IV ; Start 12/23/15 at 08:30; Stop 12/23/15 at 08:30; Status DC Piperacillin Sod/ Tazobactam Sod 50 ml @ 100 mls/hr Q6H IV Last administered on 12/30/15at 10:02; Start 12/23/15 at 10:00; Stop 12/30/15 at 14:50; Status DC Vancomycin HCl/ Sodium Chloride (Vancomycin Inj/ NS 250 ml Inj) 250 ml @ 250 mls/hr Q12H IV Last administered on 12/29/15at 09:01; Start 12/24/15 at 08:45; Stop 12/29/15 at 15:33; Status DC Warfarin Sodium (Coumadin) 4 mg DAILY@16 PO Last administered on 12/28/15at 16:00 ; Start 12/26/15 at 16:00; Stop 01/04/16 at 12:25; Status DC Levetriacetam (Keppra Liq) 500 mg Q12HR TUBE Last administered on 09/15/16t 09 :15; Start 12/27/15 at 21:00 Docusate Sodium (Colace Liq) 100 mg Q12HR TUBE Last administered on 01/15/16at 09:01; Start 12/27/15 at 21:00; Stop 04/16/16 at 08:50; Status DC Sennosides (Senna Liq) 8.8 mg DAILY TUBE Last administered on 01/15/16at 09:01 ; Start 12/27/15 at 17:00; Stop 01/15/16 at 20:37; Status DC Bisacodyl (Dulcolax Supp) 10 mg ONCE ONCE RECTAL ; Start 12/27/15 at 16:15; Stop 12/27/15 at 16:15; Status DC Albuterol/ Ipratropium (Duoneb Neb) 1 ampule Q4HR NEB PRN NEB RESPIRATORY DISTRESS Last administered on 12/29/15at 12:17; Start 12/27/15 at 22:00; Stop at 08:16; Status DC Bisacodyl (Dulcolax Supp) 10 mg ONCE ONCE RECTAL ; Start 12/28/15 at 12:00; Stop 12/28/15 at 12:01; Status DC Sodium Chloride (Sodium Chloride) 1 gm BID TUBE Last administered on 12/29/15at 09:02; Start 12/28/15 at 21:00; Stop 12/29/15 at 15:43; Status DC Lactulose (Lactulose Liq) 30 ml DAILY TUBE Last administered on 12/29/15at 09:02 ; Start 12/28/15 at 20:30; Stop 12/29/15 at 15:43; Status DC Levofloxacin (Levaquin) 750 mg DAILY@16 TUBE ; Start 12/29/15 at 16:00; Stop 05/05 at 16:00; Status DC Sodium Chloride (Sodium Chloride) 1 gm DAILY TUBE Last administered on at 07:29; Start 12/30/15 at 09:00; Stop 12/31/15 at 14:08; Status DC Water 200 ml 200 ml Q6HR G-TUBE Last administered on 12/31/15at 04:19; Start 06/05 at 14:45; Stop 12/31/15 at 07:31; Status DC Ceftriaxone Sodium/Sodium Chloride (Rocephin Inj/NS Inj) 100 ml @ 200 mls/hr Q12H IV Last administered on 01/03/16at 02:47; Start 12/30/15 at 15:00; Stop at 10:09; Status DC Acetaminophen (Tylenol 650 Mg/ 20 ml Liq) 650 mg Q6H PRN TUBE TEMP >100.4 Last administered on 08/23/16t 12:52; Start 12/30/15 at 15:15 Lactobacillus Acidophilus (Lactinex Pkt) 1 gm BID TUBE Last administered on at 09:00; Start 12/30/15 at 21:00; Stop 02/10/16 at 14:30; Status DC Enoxaparin Sodium (Lovenox Inj) 90 mg Q12H SQ Last administered on 01/01/16at 21 :57; Start 12/31/15 at 08:00; Stop 01/03/16 at 10:33; Status DC Water (Free Water) 100 ml Q12H G-TUBE ; Start 12/31/15 at 18:00; Stop 12/31/15 at 18:00; Status DC Acetaminophen/ Hydrocodone Bitart (Comptche 5-325 Mg) 1 tab Q6H PRN PO PAIN Last administered on 05/26/16at 20:46; Start 12/31/15 at 15:00; Stop 06/02/16 at 21: 44; Status DC Fentanyl Citrate (Sublimaze Inj) 25 mcg Q1H PRN IV PUSH BREAKTHROUGH PAIN; Start 12/31/15 at 15:00; Stop 03/06/16 at 10:03; Status DC Water (Free Water) 200 ml Q8H G-TUBE Last administered on 01/01/16at 17:55; Start 12/31/15 at 18:00; Stop 01/02/16 at 09:56; Status DC Sodium Chloride (Sodium Chloride) 1 gm BID TUBE Last administered on 01/03/16at 07:39; Start 12/31/15 at 21:00; Stop 01/03/16 at 09:08; Status DC Miscellaneous Information Hold Anticoagulation after midni... ONCE ONCE OTHER ; Start 01/01/16 at 10:15; Stop 01/01/16 at 10:29; Status DC Sodium Chloride (NS 1000 ml Inj) 1,000 ml @ 50 mls/hr Q20H IV Last administered on 01/02/16at 12:26; Start 01/01/16 at 18:00; Stop 01/03/16 at 10:07 ; Status DC Midazolam HCl (Versed Inj) 5 mg STK-MED ONCE .ROUTE ; Start 01/02/16 at 12:47; Stop 01/02/16 at 12:48; Status DC Vecuronium [place] (Norcuron 10 Mg Inj) 10 mg STK-MED ONCE .ROUTE ; Start at 12:47; Stop 01/02/16 at 12:48; Status DC Fentanyl Citrate (Sublimaze Inj) 250 mcg ONCE ONCE IV PUSH Last administered on 01/02/16at 15:00; Start 01/02/16 at 15:00; Stop 01/02/16 at 15:01; Status DC Midazolam HCl (Versed Inj) 10 mg ONCE ONCE IV PUSH Last administered on at 15:00; Start 01/02/16 at 15:00; Stop 01/02/16 at 15:01; Status DC Rocuronium [place] (Zemuron Inj) 100 mg BOLUS ONCE IV Last administered on at 15:00; Start 01/02/16 at 15:00; Stop 01/02/16 at 15:01; Status DC Ketamine HCl (Ketalar Inj) 500 mg STK-MED ONCE .ROUTE ; Start 01/02/16 at 14:30 ; Stop 01/02/16 at 14:31; Status DC Propofol 230 mg 230 mg STK-MED ONCE IV ; Start 01/02/16 at 16:51; Stop 01/02/16 at 16:52; Status DC Sodium Chloride (NS 1000 ml Inj) 1,000 ml @ 0 mls/hr Q0M IV ; Start 01/03/16 at 10:15; Stop 01/17/16 at 17:30; Status DC Ranitidine HCl (Zantac Liq) 150 mg Q12HR PO Last administered on 01/17/16at 07: 39; Start 01/04/16 at 09:00; Stop 01/17/16 at 15:23; Status DC Enoxaparin Sodium 90 mg 90 mg Q12HR SQ Last administered on 01/11/16at 10:01; Start 01/04/16 at 09:00; Stop 01/11/16 at 12:35; Status DC Sodium Chloride (NS 500 ml Inj) 500 ml @ 0 mls/hr BOLUS ONCE IV Last administered on 01/03/16at 22:57; Start 01/03/16 at 23:00; Stop 01/03/16 at 23:01 ; Status DC Insulin Aspart (NovoLOG SUPPLEMENTAL SCALE) 1 Q6HR SQ Last administered on at 12:00; Start 01/04/16 at 12:00; Stop 03/24/16 at 13:58; Status DC Potassium Chloride (KCl 40 Meq/30 ml Liq) 40 meq Q4H NG Last administered on at 16:21; Start 01/04/16 at 13:00; Stop 01/04/16 at 17:01; Status DC Warfarin Sodium 5 mg 5 mg DAILY@1600 PO Last administered on 01/09/16at 17:21; Start 01/04/16 at 16:00; Stop 01/10/16 at 10:06; Status DC Pharmacy Profile Note (Coumadin Consult Pharmacy) 0 ml @ 0 mls/hr UNSCH XX ; Start 01/04/16 at 12:30; Stop 04/20/16 at 12:04; Status DC Insulin Detemir (Levemir Inj) 10 units Q12HR SQ Last administered on 01/05/16at 08:00; Start 01/04/16 at 21:00; Stop 01/05/16 at 08:42; Status DC Insulin Detemir (Levemir Inj) 5 units NOW ONCE SQ Last administered on at 13:28; Start 01/04/16 at 12:45; Stop 01/04/16 at 12:46; Status DC Albuterol/ Ipratropium (Duoneb Neb) 1 ampule Q4HR NEB PRN NEB dyspnea Last administered on 04/19/16at 02:24; Start 01/07/16 at 08:15; Stop 04/25/16 at 18:54 ; Status DC Warfarin Sodium (Coumadin) 7.5 mg ONCE ONCE PO Last administered on 01/07/16at 16:40; Start 01/07/16 at 16:00; Stop 01/07/16 at 16:01; Status DC Nystatin (Mycostatin Powder) 1 applic Q12HR TOPICAL Last administered on t 09:00; Start 01/08/16 at 21:00 Ipratropium [place] (Atrovent Neb) 0.5 mg TID NEB NEB Last administered on 02/20at 13:17; Start 01/08/16 at 20:00; Stop 02/21/16 at 17:52; Status DC Warfarin Sodium (Coumadin) 5 mg DAILY@1600 PO Last administered on 01/11/16at 14 :26; Start 01/11/16 at 16:00; Stop 01/12/16 at 09:45; Status DC Warfarin Sodium (Coumadin) 6 mg ONCE PO Last administered on 01/10/16at 17:10; Start 01/10/16 at 16:00; Stop 01/10/16 at 21:00; Status DC Metoprolol Tartrate (Lopressor) 50 mg Q12HR GT Last administered on 01/11/16at 10:02; Start 01/10/16 at 11:00; Stop 01/11/16 at 12:30; Status DC Metoprolol Tartrate (Lopressor) 50 mg TID GT Last administered on 01/14/16at 08: 24; Start 01/11/16 at 13:00; Stop 01/14/16 at 08:28; Status DC Insulin Detemir (Levemir Inj) 10 units HS SQ Last administered on 01/11/16at 22: 23; Start 01/11/16 at 21:00; Stop 01/12/16 at 11:47; Status DC Warfarin Sodium (Coumadin) 4 mg DAILY@16 PO ; Start 01/12/16 at 16:00; Stop at 16:00; Status DC Insulin Detemir (Levemir Inj) 20 units HS SQ Last administered on 01/13/16at 20: 26; Start 01/12/16 at 21:00; Stop 01/14/16 at 08:28; Status DC Warfarin Sodium (Coumadin) 2 mg DAILY@16 PO Last administered on 01/13/16at 17: 05; Start 01/12/16 at 16:00; Stop 01/14/16 at 11:23; Status DC Insulin Detemir (Levemir Inj) 22 units HS SQ Last administered on 01/14/16at 21: 37; Start 01/14/16 at 21:00; Stop 01/15/16 at 10:06; Status DC Metoprolol Tartrate (Lopressor) 75 mg TID GT Last administered on 03/10/16at 17: 43; Start 01/14/16 at 09:00; Stop 03/10/16 at 21:13; Status DC Miscellaneous (Pill Splitter) 1 ea UNSCH PRN OTHER SEE LABEL COMMENTS; Start at 08:30 Warfarin Sodium (Coumadin) 4 mg DAILY@1600 PO Last administered on 01/21/16at 16: 51; Start 01/14/16 at 16:00; Stop 01/23/16 at 09:29; Status DC Patient Medication Teaching (Coumadin Booklet) 1 ONCE ONCE XX ; Start 01/14/16 at 16:00; Stop 01/14/16 at 16:01; Status DC Insulin Detemir (Levemir Inj) 24 units HS SQ Last administered on 03/04/16at 21: 09; Start 01/15/16 at 21:00; Stop 03/05/16 at 11:17; Status DC Citalopram Hydrobromide (CeleXA) 20 mg DAILY PEG Last administered on at 08:01; Start 01/16/16 at 09:00; Stop 01/16/16 at 09:41; Status DC Sennosides (Senna Liq) 8.8 mg BID TUBE Last administered on 02/20/16at 08:32; Start 01/15/16 at 21:00; Stop 02/20/16 at 16:13; Status DC Gadodiamide 18 ml 18 ml STK-MED ONCE IV ; Start 01/16/16 at 20:40; Stop at 20:41; Status DC Sodium Chloride (NS 1000 ml Inj) 1,000 ml @ 125 mls/hr Q8H IV Last administered on 01/17/16at 15:11; Start 01/17/16 at 15:00; Stop 01/17/16 at 17:31 ; Status DC Ranitidine HCl 150 mg 150 mg Q24H PO Last administered on 07/28/16t 08:54; Start 01/18/16 at 09:00; Stop 07/30/16 at 10:05; Status DC Sodium Chloride 1,000 ml @ 75 mls/hr [id number] IV Last administered on at 05:22; Start 01/17/16 at 18:00; Stop 01/18/16 at 09:28; Status DC Sodium Chloride/ Sterile Water (Sodium Chloride 23.4% Inj/Sterile Water For Inj ) 1,009.625 ml @ 60 mls/hr [id number] IV Last administered on 01/21/16at 22:46; Start 01/18/16 at 11:00; Stop 01/22/16 at 10:09; Status DC Potassium Chloride (KCl) 40 meq ONCE ONCE PO ; Start 01/18/16 at 09:30; Stop at 09:31; Status DC Potassium Chloride (KCl 40 Meq/30 ml Liq) 40 meq ONCE ONCE TUBE Last administered on 01/18/16at 11:08; Start 01/18/16 at 11:00; Stop 01/18/16 at 11:01 ; Status DC Water (Free Water) 300 ml Q4HR TUBE Last administered on 01/19/16at 08:00; Start 01/18/16 at 12:00; Stop 01/19/16 at 10:43; Status DC Water (Free Water) 400 ml Q4HR TUBE Last administered on 04/16/16at 04:00; Start 01/19/16 at 12:00; Stop 04/16/16 at 09:09; Status DC Potassium Chloride (KCl 40 Meq/30 ml Liq) 40 meq ONCE ONCE NG Last administered on 01/19/16at 11:41; Start 01/19/16 at 11:00; Stop 01/19/16 at 11:01; Status DC Potassium Chloride 60 meq 60 meq ONCE ONCE PO/TUBE Last administered on at 13:30; Start 01/21/16 at 11:15; Stop 01/21/16 at 11:27; Status DC Sodium Chloride (1/2 NS 1000 ml Inj) 1,000 ml @ 30 mls/hr Q24H IV Last administered on 02/06/16at 11:26; Start 01/22/16 at 11:00; Stop 02/07/16 at 14:49 ; Status DC Warfarin Sodium (Coumadin) 3 mg DAILY@16 PO Last administered on 01/23/16at 17:19 ; Start 01/23/16 at 16:00; Stop 01/24/16 at 14:05; Status DC Warfarin Sodium (Coumadin) 3 mg DAILY@16 PO Last administered on 01/25/16at 15:59 ; Start 01/25/16 at 16:00; Stop 01/26/16 at 15:04; Status DC Warfarin Sodium (Coumadin) 4 mg ONCE@1600 ONCE PO Last administered on at 16:55; Start 01/24/16 at 16:00; Stop 01/24/16 at 16:01; Status DC Warfarin Sodium (Coumadin) 3 mg DAILY@16 PO ; Start 01/27/16 at 16:00; Stop at 16:00; Status DC Warfarin Sodium (Coumadin) 4 mg ONCE@1600 ONCE PO Last administered on at 16:52; Start 01/26/16 at 16:00; Stop 01/26/16 at 16:01; Status DC Potassium Chloride (KCl 40 Meq/30 ml Liq) 80 meq ONCE ONCE PO Last administered on 01/27/16at 07:45; Start 01/27/16 at 07:45; Stop 01/27/16 at 08:10; Status DC Warfarin Sodium (Coumadin) 4 mg DAILY@16 PO Last administered on 02/02/16at 17: 22; Start 01/27/16 at 16:00; Stop 02/03/16 at 11:37; Status DC Acetic Acid (Acetic Acid 0.25% Irr Btl) 10 ml Q8HR IRRIGATION Last administered on 02/05/16at 06:00; Start 01/28/16 at 22:00; Stop 02/05/16 at 15:51 ; Status DC Warfarin Sodium 3 mg 3 mg DAILY@1600 PO Last administered on 02/11/16at 17:34; Start 02/03/16 at 16:00; Stop 02/12/16 at 12:45; Status DC Ceftriaxone Sodium/Sodium Chloride (Rocephin Inj/NS Inj) 100 ml @ 200 mls/hr Q24H IV Last administered on 02/10/16at 05:23; Start 02/05/16 at 06:30; Stop at 14:32; Status DC Acetic Acid (Acetic Acid 0.25% Irr Btl) 10 ml Q8HR IRRIGATION ; Start 02/05/16 at 16:00; Status Cancel Acetic Acid (Acetic Acid 0.25% Irr Btl) 10 ml Q8HR IRRIGATION Last administered on 09/15/16t 06:17; Start 02/05/16 at 16:00 Lactobacillus Acidophilus (Lactinex) 1 tab Q12HR PO Last administered on at 08:25; Start 02/10/16 at 21:00; Stop 02/12/16 at 16:05; Status DC Warfarin Sodium (Coumadin) 4 mg DAILY@1600 PO Last administered on 02/14/16at 15 :56; Start 02/12/16 at 16:00; Stop 02/15/16 at 10:17; Status DC Paroxetine HCl (Paxil Liq) 20 mg DAILY PEG Last administered on 02/25/16at 07:33 ; Start 02/16/16 at 09:00; Stop 02/25/16 at 10:36; Status DC Warfarin Sodium (Coumadin) 3 mg DAILY@1600 PO Last administered on 02/19/16at 16: 42; Start 02/15/16 at 16:00; Stop 02/20/16 at 08:50; Status DC Warfarin Sodium (Coumadin) 4 mg DAILY@16 PO Last administered on 02/21/16at 15:54 ; Start 02/20/16 at 16:00; Stop 02/22/16 at 08:46; Status DC Sennosides (Senna Liq) 8.8 mg DAILY TUBE Last administered on 05/26/16at 08:14 ; Start 02/21/16 at 09:00; Stop 05/27/16 at 11:51; Status DC Albuterol Sulfate (Albuterol Neb) 2.5 mg QID NEB INH Last administered on at 19:51; Start 02/21/16 at 20:00; Stop 02/25/16 at 20:00; Status DC Acetylcysteine (Mucomyst 10% Neb) 1 ml QID NEB NEB Last administered on at 16:32; Start 02/21/16 at 20:00; Stop 02/23/16 at 16:01; Status DC Warfarin Sodium (Coumadin) 3 mg DAILY@16 PO Last administered on 02/22/16at 15:59 ; Start 02/22/16 at 16:00; Stop 02/23/16 at 08:56; Status DC Warfarin Sodium (Coumadin) 3 mg DAILY@16 PO Last administered on 02/28/16at 16: 17; Start 02/24/16 at 16:00; Stop 02/29/16 at 10:04; Status DC Warfarin Sodium (Coumadin) 2 mg ONCE PO Last administered on 02/23/16at 16:22; Start 02/23/16 at 16:00; Stop 02/23/16 at 21:00; Status DC Paroxetine HCl (Paxil Liq) 20 mg DAILY@1900 PEG Last administered on 03/08/16at 18:11; Start 02/26/16 at 19:00; Stop 03/09/16 at 11:31; Status DC Warfarin Sodium (Coumadin) 3 mg DAILY@16 PO Last administered on 03/06/16at 16: 22; Start 03/01/16 at 16:00; Stop 03/09/16 at 10:30; Status DC Warfarin Sodium (Coumadin) 1 mg ONCE PO Last administered on 02/29/16at 17:28; Start 02/29/16 at 16:00; Stop 02/29/16 at 21:00; Status DC Insulin Detemir (Levemir Inj) 27 units HS SQ Last administered on 03/05/16at 20: 25; Start 03/05/16 at 21:00; Stop 03/06/16 at 10:03; Status DC Patient Medication Teaching (Coumadin Booklet) 1 ONCE ONCE XX Last administered on 03/05/16at 16:00; Start 03/05/16 at 16:00; Stop 03/05/16 at 16:01 ; Status DC Insulin Detemir (Levemir Inj) 30 units HS SQ Last administered on 03/21/16at 22: 32; Start 03/06/16 at 21:00; Stop 03/22/16 at 14:48; Status DC Trimethoprim/ Sulfamethoxazole (Bactrim 800-160 Mg/20 ml Liq) 20 ml Q12HR PO Last administered on 03/14/16at 08:01; Start 03/07/16 at 11:15; Stop 03/14/16 at 11:14; Status DC Lorazepam (Ativan Inj) 0.5 mg Q4H PRN IV PUSH seizures or agitation; Start at 23:00 Metronidazole (Flagyl) 500 mg Q8H PO Last administered on 03/14/16at 15:51; Start 8/19/16 at 17:00; Stop 03/14/16 at 23:00; Status DC Warfarin Sodium (Coumadin) 2 mg DAILY@16 PO Last administered on 03/09/16at 17: 20; Start 03/09/16 at 16:00; Stop 03/10/16 at 10:33; Status DC Paroxetine HCl (Paxil) 20 mg DAILY@1900 PEG Last administered on 03/11/16at 17: 55; Start 03/09/16 at 19:00; Stop 03/12/16 at 08:31; Status DC Warfarin Sodium 3 mg 3 mg DAILY@16 PO Last administered on 04/12/16at 15:28; Start 03/10/16 at 16:00; Stop 04/12/16 at 16:39; Status DC Pharmacy Profile Note 0 ml @ 0 mls/hr UNSCH OTHER ; Start 03/10/16 at 14:15; Stop 03/18/16 at 11:33; Status DC Vancomycin HCl/ Sodium Chloride (Vancomycin Inj/ NS 500 ml Inj) 530 ml @ 265 mls/hr Q12H IV Last administered on 03/17/16at 16:26; Start 03/10/16 at 16:00; Stop 03/17/16 at 23:00; Status DC Miscellaneous Information SPECIFIC LAB TO BE ... ONCE ONCE XX Last administered on 03/12/16at 04:45; Start 03/12/16 at 03:45; Stop 03/12/16 at 03:46 ; Status DC Metoprolol Tartrate (Lopressor) 75 mg Q8HR PO Last administered on 04/02/16at 13 :13; Start 03/10/16 at 22:00; Stop 04/02/16 at 17:31; Status DC Paroxetine HCl (Paxil Liq) 20 mg DAILY@1900 PEG Last administered on 09/14/16t 19:08; Start 03/12/16 at 19:00 Warfarin Sodium (Coumadin) 1 mg ONCE PO Last administered on 03/21/16at 16:24; Start 03/21/16 at 16:00; Stop 03/21/16 at 21:00; Status DC Warfarin Sodium (Coumadin) 1 mg ONCE PO Last administered on 03/22/16at 17:46; Start 03/22/16 at 16:00; Stop 03/22/16 at 21:00; Status DC Insulin Detemir (Levemir Inj) 32 units HS SQ Last administered on 03/22/16at 20: 18; Start 03/22/16 at 21:00; Stop 03/23/16 at 13:35; Status DC Diltiazem HCl (Cardizem Cd) 120 mg DAILY PO Last administered on 04/14/16at 07: 43; Start 03/22/16 at 16:00; Stop 04/14/16 at 14:39; Status DC Hyoscyamine Sulfate (Levsin Liq) 0.125 mg Q4H PRN PEG INCREASED SECRETIONS Last administered on 04/10/16at 08:05; Start 03/22/16 at 15:15; Stop 04/11/16 at 10:24; Status DC Warfarin Sodium (Coumadin) 2 mg ONCE ONCE PO Last administered on 03/23/16at 17: 26; Start 03/23/16 at 16:00; Stop 03/23/16 at 16:01; Status DC Insulin Detemir (Levemir Inj) 34 units HS SQ Last administered on 03/23/16at 20: 01; Start 03/23/16 at 21:00; Stop 03/24/16 at 13:53; Status DC Insulin Detemir (Levemir Inj) 35 units HS SQ Last administered on 09/14/16t 22: 21; Start 03/24/16 at 21:00 Insulin Aspart (NovoLOG SUPPLEMENTAL SCALE) 1 ACHS SLIDING SCALE SQ Last administered on 04/16/16at 22:27; Start 03/24/16 at 16:00; Stop 04/19/16 at 17:19 ; Status DC Warfarin Sodium (Coumadin) 1 mg ONCE ONCE PO Last administered on 03/30/16at 16 :59; Start 03/30/16 at 16:00; Stop 03/30/16 at 16:01; Status DC Potassium Chloride (KCl 40 Meq/30 ml Liq) 40 meq ONCE ONCE NG Last administered on 03/31/16at 21:28; Start 03/31/16 at 18:30; Stop 03/31/16 at 18:31 ; Status DC Potassium Bicarb/ Potassium Chloride (K-Lyte Cl Eff) 25 meq ONCE ONCE PEG Last administered on 04/02/16at 12:01; Start 04/02/16 at 13:00; Stop 04/02/16 at 13:01; Status DC Metoprolol Tartrate (Lopressor) 75 mg BID PO Last administered on 05/28/16at 21: 03; Start 04/02/16 at 21:00; Stop 05/29/16 at 11:21; Status DC Potassium Bicarb/ Potassium Chloride (K-Lyte Cl Eff) 25 meq ONCE ONCE PEG Last administered on 04/04/16at 14:40; Start 04/04/16 at 12:30; Stop 04/04/16 at 12:31; Status DC Linezolid (Zyvox) 600 mg Q12HR PO Last administered on 04/16/16at 09:11; Start 04/05/16 at 15:00; Stop 04/16/16 at 12:00; Status DC Artificial Tears (Lacrilube Opht Oint) 1 applic Q12HR EACH EYE Last administered on 09/04/16 21:00; Start 04/10/16 at 11:00; Stop 09/05/16 at 14:38 ; Status DC Hyoscyamine Sulfate (Levsin) 0.25 mg Q4H PRN G-TUBE INCREASED SECRETIONS Last administered on 08/31/16 05:02; Start 04/11/16 at 10:30 Diatrizoate Meglum/ Diatrizoate Sod ( Gastroview Liq) 18 ml ONCE ONCE PO Last administered on 04/12/16at 16:45; Start 04/12/16 at 16:15; Stop 04/12/16 at 16:16; Status DC Warfarin Sodium (Coumadin) 3 mg DAILY@16 PO ; Start 04/13/16 at 16:00; Stop 05/27/16 at 11:51; Status DC Iohexol (Omnipaque 350 Inj) 98 ml STK-MED ONCE IV Last administered on at 21:01; Start 04/12/16 at 21:01; Stop 04/12/16 at 21:02; Status DC Diltiazem HCl (Cardizem Cd) 180 mg DAILY PO ; Start 04/15/16 at 09:00; Stop at 08:50; Status DC Ondansetron HCl (Zofran Inj) 4 mg Q6HR PRN IV PUSH nausea/vomiting Last administered on 08/10/16t 10:16; Start 04/14/16 at 19:45 Diltiazem HCl 60 mg 60 mg QID PO Last administered on 04/25/16at 17:26; Start at 13:00; Stop 04/25/16 at 19:06; Status DC Sodium Chloride 500 ml @ 500 mls/hr BOLUS ONCE IV Last administered on at 09:15; Start 04/15/16 at 09:15; Stop 04/15/16 at 10:14; Status DC Potassium Chloride/Dextrose/ Sodium Chloride (KCl Inj/D5W-NS 1000 ml Inj) 1,005 ml @ 100 mls/hr Q10H3M IV Last administered on 04/15/16at 21:03; Start at 11:00; Stop 04/16/16 at 09:09; Status DC Enoxaparin Sodium (Lovenox Inj) 90 mg Q12H SQ Last administered on 04/16/16at 21 :12; Start 04/16/16 at 09:00; Stop 04/17/16 at 10:37; Status DC Water 200 ml 200 ml Q4HR TUBE Last administered on 09/15/16 08:00; Start 04/16 at 12:00 Sodium Chloride 1,000 ml @ 84 mls/hr [id number] IV Last administered on at 08:38; Start 04/16/16 at 10:00; Stop 04/20/16 at 12:04; Status DC Ceftriaxone Sodium/Sodium Chloride (Rocephin Inj/NS Inj) 100 ml @ 200 mls/hr Q24H IV Last administered on 05/02/16at 13:19; Start 04/16/16 at 12:00; Stop 05/03/16 at 12:06; Status DC Acetaminophen/ Hydrocodone Bitart (Comptche 5-325 Mg) 1 tab Q6HR PEG Last administered on 09/14/16 12:00; Start 04/18/16 at 18:00 Lactulose (Lactulose Liq) 30 ml NOW ONCE PEG Last administered on 04/19/16at 17 :21; Start 04/19/16 at 17:30; Stop 04/19/16 at 17:31; Status DC Lactulose (Lactulose Liq) 30 ml DAILY PEG Last administered on 05/26/16at 08:14 ; Start 04/20/16 at 09:00; Stop 05/27/16 at 11:39; Status DC Potassium Bicarb/ Potassium Chloride (K-Lyte Cl Eff) 50 meq ONCE ONCE PO Last administered on 04/20/16at 05:52; Start 04/20/16 at 05:45; Stop 04/20/16 at 05:46; Status DC Furosemide (Lasix Inj) 20 mg ONCE ONCE IV PUSH Last administered on 04/20/16at 17:35; Start 04/20/16 at 12:00; Stop 04/20/16 at 12:06; Status DC Insulin Aspart (NovoLOG SUPPLEMENTAL SCALE) 1 ACHS SLIDING SCALE SQ Last administered on 06/02/16at 12:10; Start 04/20/16 at 16:00; Stop 06/02/16 at 21: 44; Status DC Dextrose (D50w (Vial) Inj) 25 ml UNSCH PRN IV HYPOGLYCEMIA-SEE COMMENTS; Start 04/20/16 at 12:00 Glucagon (Glucagon Inj) 1 mg UNSCH PRN IM/SQ HYPOGLYCEMIA-SEE COMMENTS; Start 04/20/16 at 12:00 Lactobacillus Acidophilus (Lactinex) 1 tab Q12HR PEG Last administered on 06/06at 21:34; Start 04/22/16 at 09:00; Stop 06/07/16 at 09:32; Status DC Furosemide (Lasix Inj) 20 mg Q12H IV PUSH Last administered on 04/24/16at 08:52 ; Start 04/22/16 at 09:00; Stop 04/24/16 at 09:25; Status DC Potassium Bicarb/ Potassium Chloride (K-Lyte Cl Eff) 25 meq Q12HR TUBE Last administered on 05/27/16at 08:17; Start 04/22/16 at 09:00; Stop 05/27/16 at 11:51 ; Status DC Albumin Human (Albumin 25% Inj) 12.5 gm Q12H IV Last administered on 04/24/16at 08:46; Start 04/22/16 at 09:00; Stop 04/24/16 at 09:25; Status DC Furosemide (Lasix Inj) 20 mg DAILY IV PUSH Last administered on 05/08/16at 09: 01; Start 04/25/16 at 09:00; Stop 05/08/16 at 11:06; Status DC Albumin Human (Albumin 25% Inj) 12.5 gm DAILY IV Last administered on at 09:02; Start 04/25/16 at 10:00; Stop 05/08/16 at 11:06; Status DC Furosemide (Lasix Inj) 40 mg ONCE ONCE IV PUSH Last administered on 04/25/16at 18:15; Start 04/25/16 at 18:15; Stop 04/25/16 at 18:16; Status DC Albuterol/ Ipratropium (Duoneb Neb) 1 ampule Q6HR NEB NEB Last administered on 04/27/16at 15:52; Start 04/25/16 at 18:30; Stop 04/27/16 at 19:45; Status DC Ipratropium [place] (Atrovent Neb) 0.5 mg Q6HR NEB NEB Last administered on at 16:51; Start 04/25/16 at 22:00; Stop 04/27/16 at 16:44; Status DC Levalbuterol HCl (Xopenex Neb) 0.31 mg Q4HR NEB NEB Last administered on at 23:48; Start 04/25/16 at 20:00; Stop 04/27/16 at 16:43; Status DC Levalbuterol HCl (Xopenex Neb) 0.31 mg Q2HR NEB PRN NEB SHORTNESS OF BREATH; Start 04/25/16 at 18:45; Stop 04/28/16 at 10:50; Status DC Diltiazem HCl (Cardizem) 90 mg QID PEG Last administered on 07/17/16at 09:27; Start 04/25/16 at 21:00; Stop 07/17/16 at 17:52; Status DC Diltiazem HCl (Cardizem) 30 mg NOW ONCE PEG Last administered on 04/25/16at 21: 36; Start 04/25/16 at 19:15; Stop 04/25/16 at 19:16; Status DC Levalbuterol HCl (Xopenex Neb) 0.31 mg Q8HR NEB NEB ; Start 04/28/16 at 00:00; Stop 04/28/16 at 10:50; Status DC Levalbuterol HCl (Xopenex Neb) 0.63 mg Q4HR NEB PRN NEB SHORTNESS OF BREATH Last administered on 05/04/16at 15:26; Start 04/28/16 at 11:00; Stop 05/04/16 at 00:51; Status DC Levalbuterol HCl (Xopenex Neb) 0.63 mg Q8HR NEB NEB Last administered on 05/04at 00:07; Start 04/28/16 at 16:00; Stop 05/04/16 at 00:50; Status DC Polyethylene Glycol/ Electrolytes 4000 ml 4,000 ml ONCE ONCE PO Last administered on 05/05/16at 08:10; Start 05/05/16 at 08:45; Stop 05/05/16 at 08 :46; Status DC Cefazolin Sodium/ Dextrose 50 ml @ 100 mls/hr ONCE ONCE IV ; Start 05/06/16 at 14:00; Stop 05/06/16 at 14:29; Status DC Metronidazole 100 ml @ 100 mls/hr ONCE ONCE IV Last administered on at 14:00; Start 05/06/16 at 14:00; Stop 05/06/16 at 14:59; Status DC Ceftriaxone Sodium/Sodium Chloride (Rocephin Inj/NS Inj) 100 ml @ 200 mls/hr Q24H IV Last administered on 06/09/16at 12:36; Start 05/03/16 at 12:00; Stop 06/10/16 at 12:48; Status DC Levalbuterol HCl (Xopenex Neb) 0.63 mg Q8HR NEB NEB Last administered on 05/05at 08:00; Start 05/04/16 at 00:49; Stop 05/05/16 at 08:07; Status DC Levalbuterol HCl (Xopenex Neb) 0.63 mg Q4HR NEB PRN NEB SHORTNESS OF BREATH Last administered on 08/02/16t 13:48; Start 05/05/16 at 12:00 Levalbuterol HCl (Xopenex Neb) 0.63 mg Q8HR NEB NEB Last administered on 05/08at 23:56; Start 05/05/16 at 08:15; Stop 05/09/16 at 08:15; Status DC Potassium Bicarb/ Potassium Chloride (K-Lyte Cl Eff) 25 meq DAILY TUBE Last administered on 09/15/16 09:14; Start 05/28/16 at 09:00 Aspirin (Aspirin) 325 mg DAILY TUBE Last administered on 09/15/16 09:15; Start 05/27/16 at 11:40 Docusate Sodium (Colace Liq) 100 mg DAILY PRN PO constipation Last administered on 08/16/16 21:09; Start 05/27/16 at 11:45; Stop 08/31/16 at 09:00 ; Status DC Metoprolol Tartrate (Lopressor) 50 mg BID PO Last administered on 08/23/16 09: 03; Start 05/29/16 at 21:00; Stop 08/23/16 at 15:33; Status DC Acetaminophen/ Hydrocodone Bitart (Comptche 5-325 Mg) 1 tab Q6H PRN TUBE BREAKTHROUGH PAIN Last administered on 08/02/16 15:11; Start 06/03/16 at 03:00 Insulin Aspart (NovoLOG SUPPLEMENTAL SCALE) 1 ACHS SLIDING SCALE SQ Last administered on 06/06/16at 21:35; Start 06/03/16 at 07:00; Stop 06/07/16 at 12 :24; Status DC Lactobacillus Acidophilus (Lactinex) 1 tab TID PEG Last administered on 09:15; Start 06/07/16 at 13:00 Insulin Aspart 1 1 AC BREAKFAST SQ Last administered on 09/06/16 07:00; Start 06/08/16 at 07:00 Ceftriaxone Sodium/Sodium Chloride (Rocephin Inj/NS Inj) 100 ml @ 200 mls/hr Q24H IV Last administered on 07/28/16 12:19; Start 06/10/16 at 12:00; Stop 07/29/16 at 13:30; Status DC Heparin Sodium (Porcine) (Heparin Inj) 5,000 units Q12HR SQ Last administered on 06/11/16at 00:58; Start 06/10/16 at 14:15; Stop 06/11/16 at 06:21; Status DC Heparin Sodium (Porcine) (Heparin Inj) 5,000 units Q8HR SQ Last administered on 09/15/16 06:17; Start 06/11/16 at 14:00 Diltiazem HCl (Cardizem) 30 mg QID PEG Last administered on 08/16/16 08:31; Start 07/17/16 at 18:00; Stop 08/16/16 at 12:06; Status DC Bacitracin 1 applic 1 applic BID TOP Last administered on 09/15/16 09:00; Start 07/20/16 at 10:00 Lactated Ringer's 1,000 ml @ 30 mls/hr Q24H IV ; Start 07/21/16 at 17:45; Stop 08/14/16 at 12:08; Status DC Sodium Chloride (NS 500 ml Inj) 500 ml @ 30 mls/hr [id number] IV ; Start 07/21/16 at 17:45; Stop 07/22/16 at 17:44; Status DC Insulin Human Regular (NovoLIN R INJ) See Protocol Table ... UNSCH X1 PRN SQ SEE PROTOCOL; Start 07/21/16 at 17:45; Stop 07/22/16 at 17:44; Status DC Metoprolol Tartrate (Lopressor) 25 mg UNSCH X1 PRN PO SEE LABEL COMMENTS; Start 07/21/16 at 17:45; Stop 07/22/16 at 17:44; Status DC Lidocaine/ Epinephrine (Xylocaine-Epi 1%-1:100,000 Inj) 40 ml STK-MED ONCE .ROUTE Last administered on 07/22/16 10:56; Start 07/22/16 at 10:04; Stop at 10:05; Status DC Ketamine HCl (Ketalar Inj) 500 mg STK-MED ONCE .ROUTE ; Start 07/22/16 at 10:50; Stop 07/22/16 at 10:51; Status DC Propofol 600 mg 600 mg STK-MED ONCE IV ; Start 07/22/16 at 12:00; Stop 07/23/16 at 14:36; Status DC Dextrose 1,000 ml @ 40 mls/hr Q24H ONCE IV Last administered on 07/28/16 14:33 ; Start 07/28/16 at 14:00; Stop 07/29/16 at 13:59; Status DC Ampicillin Sodium/ Sulbactam Sodium/ Sodium Chloride (Unasyn Inj/NS Inj) 100 ml @ 200 mls/hr Q6H IV Last administered on 08/01/16 12:30; Start 07/29/16 at 14: 00; Stop 08/01/16 at 14:13; Status DC Ondansetron HCl 4 mg 4 mg ONCE ONCE IV PUSH Last administered on 07/30/16 02: 46; Start 07/30/16 at 00:30; Stop 07/30/16 at 00:33; Status DC Lactated Ringer's 1,000 ml @ 30 mls/hr Q24H IV ; Start 07/30/16 at 06:00; Stop 08/14/16 at 12:09; Status DC Sodium Chloride (NS 500 ml Inj) 500 ml @ 30 mls/hr [id number] IV ; Start 07/30/16 at 06:00; Stop 07/31/16 at 05:59; Status DC Pantoprazole Sodium (Protonix Inj) 40 mg Q12H IV PUSH Last administered on 09/15 11:09; Start 07/30/16 at 10:15 Propofol 200 mg 200 mg STK-MED ONCE IV ; Start 07/30/16 at 09:41; Stop 07/30/16 at 10:19; Status DC Piperacillin Sod/ Tazobactam Sod (Zosyn 4.5 Gm Premix) 100 ml @ 200 mls/hr Q6H IV Last administered on 08/07/16 09:37; Start 08/01/16 at 16:00; Stop at 16:10; Status DC Linezolid (Zyvox) 600 mg Q12HR PO Last administered on 08/22/16 09:10; Start at 21:00; Stop 08/22/16 at 15:55; Status DC Sodium Chloride ([place]) 1 spray BID NASAL Last administered on 09:00; Start 08/01/16 at 21:00 Metronidazole 500 mg 500 mg Q8H PO Last administered on 08/08/16 08:28; Start 08/07/16 at 16:00; Stop 08/08/16 at 16:10; Status DC Sodium Chloride (NS 1000 ml Inj) 1,000 ml @ 42 mls/hr [id number] IV Last administered on 08/14/16 12:44; Start 08/14/16 at 12:00; Stop 08/15/16 at 10:56 ; Status DC Fentanyl Citrate (fentaNYL INJ) 250 mcg STK-MED ONCE .ROUTE Last administered on 08/14/16 15:36; Start 08/14/16 at 15:36; Stop 08/14/16 at 15:37; Status DC Iohexol (Omnipaque 350 Inj) 30 ml STK-MED ONCE G-TUBE Last administered on 08/14 15:45; Start 08/14/16 at 15:52; Stop 08/14/16 at 15:53; Status DC Diltiazem HCl (Cardizem) 30 mg QID PEG Last administered on 09/15/16 09:15; Start 08/16/16 at 13:00 Polyethylene Glycol (Miralax) 17 gm ONCE ONCE PEG Last administered on 11:32; Start 08/17/16 at 12:00; Stop 08/17/16 at 12:01; Status DC Amoxicillin 500 mg 500 mg Q8HR PO Last administered on 09/15/16 06:17; Start 08/22/16 at 22:00 Cefepime HCl/ Sodium Chloride (Maxipime Inj/NS Inj) 100 ml @ 200 mls/hr Q8H IV Last administered on 09/03/16 10:46; Start 08/23/16 at 16:00; Stop 09/03/16 at 15:02; Status DC Metoprolol Tartrate (Lopressor) 75 mg BID PO Last administered on 09/13/16 08: 42; Start 08/23/16 at 21:00; Stop 09/13/16 at 13:09; Status DC Docusate Sodium (Colace Liq) 100 mg BID PO Last administered on 09/15/16 09:15 ; Start 08/30/16 at 21:00 Sennosides (Senokot) 17.2 mg DAILY PO Last administered on 09/15/16 09:15; Start 08/30/16 at 14:00 Lactulose (Lactulose Liq) 30 ml DAILY PO Last administered on 09/15/16 09:15; Start 09/02/16 at 15:30 Artificial Tears (Tears Naturale Opth Soln) 1 drop BID EACH EYE Last administered on 09/15/16 09:00; Start 09/05/16 at 21:00 Midazolam HCl (Versed Inj) 2 mg STK-MED ONCE .ROUTE Last administered on 11:37; Start 09/09/16 at 11:37; Stop 09/09/16 at 11:38; Status DC Fentanyl Citrate (fentaNYL INJ) 100 mcg STK-MED ONCE .ROUTE Last administered on 09/09/16 11:38; Start 09/09/16 at 11:38; Stop 09/09/16 at 11:39; Status DC Iohexol (Omnipaque 350 Inj) 20 ml STK-MED ONCE G-TUBE Last administered on 09/09 11:50; Start 09/09/16 at 11:50; Stop 09/09/16 at 12:15; Status DC Metoprolol Tartrate (Lopressor) 50 mg BID PO Last administered on 09/15/16 09: 16; Start 09/13/16 at 21:00 Date of Insertion: Aug 03, 2016 A/P Problem List: (1) CVA (cerebral vascular accident) ICD Code: I63.9 Status: Acute (2) A-fib ICD Code: I48.91 Status: Chronic (3) DM (diabetes mellitus) ICD Code: E11.9 Status: Chronic Assessment and Plan A/P 60-year-old male with: 1. 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 Patient is nonverbal. Continue Keppra for seizure prophylaxis. PT/OT signed off as patient is unable to participate. 2. Chronic respiratory failure: Secondary to CVA. Status post tracheostomy. Continue pulmonary toilet and bronchodilators as needed. Continue trach care, suctioning. Levsin as needed. On 28% FiO2 09/06. 3. Atrial fibrillation: Continue rate control with Cardizem and metoprolol. Echocardiogram in November 2015 shows preserved ejection fraction. Coumadin discontinued secondary to bleeding. Continue aspirin and prophylactic heparin dose. HR well controlled 09/06. 4. History of non-Hodgkin's lymphoma: Status post brain biopsy on December 13 by neurosurgery. Pathology consistent with acute infarct without evidence of lymphoma. Oncology signed off. 5. Diabetes mellitus: Hemoglobin A1c is 7. Continue Levemir. Monitor Accu-Cheks and cover with sliding scale insulin. Glucose well controlled 09/06. 6. Decubitus ulcer stage IV: Continue wound care, twice-daily dressing changes. Wound care recommendations. Continue pressure relief measures including turning and positioning. Patient's family has declined a diverting colostomy. Wound culture growing Klebsiella. Antibiotics per infectious disease. Status post wide excision of sacral skin and biopsy of the cavity lining with debridement on 07/22/16. 7. Gastric ulcer, reflux esophagitis: EGD on 07/30/16 showed gastric ulcers. Appreciate GI recommendations. Continue PPI. H&H stable. Check CBC 09/07. 8. UTI pseudomonas aeruginosa treated with abx . Repeat Ucx 08/28/16 negative. 9. Constipation: The pt has been noted to be straining when having bowel movements. Increase bowel regimen. KUB with mild constipation 08/31. Added lactulose 09/02. FEN: Continue Nepro tube feeds. Follow up with dietary recommendations. Continue free water flushes. Supplement potassium. DVT prophylaxis: SCDs/ subq heparin. Discharge Planning dc planning to SNF-no funding- SSI pending. 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 Patient is nonverbal. Continue Keppra for seizure prophylaxis. PT/OT signed off as patient is unable to participate. Chronic respiratory failure -Secondary to CVA. Status post tracheostomy. Continue pulmonary toilet and bronchodilators as needed. Continue trach care, suctioning. Levsin as needed. On 28% FiO2 09/06. Atrial fibrillation -Continue rate control with Cardizem and metoprolol. Echocardiogram in November 2015 shows preserved ejection fraction. Coumadin discontinued secondary to bleeding. Continue aspirin and prophylactic heparin dose. HR well controlled 09/06. History of non-Hodgkin's lymphoma - Status post brain biopsy on December 13 by neurosurgery. Pathology consistent with acute infarct without evidence of lymphoma. Oncology signed off. Diabetes mellitus -Hemoglobin A1c is 7. Continue Levemir. Monitor Accu-Cheks and cover with sliding scale insulin. Glucose well controlled 09/06. Decubitus ulcer stage IV -Continue wound care, twice-daily dressing changes. Wound care recommendations. Continue pressure relief measures including turning and positioning. Patient's family has declined a diverting colostomy. Wound culture growing Klebsiella. Antibiotics per infectious disease. Status post wide excision of sacral skin and biopsy of the cavity lining with debridement on 07/22/16. Gastric ulcer, reflux esophagitis - EGD on 07/30/16 showed gastric ulcers. Appreciate GI recommendations. Continue PPI. H&H stable. UTI pseudomonas aeruginosa treated with abx - Repeat Ucx 08/28/16 negative. Constipation: -on lactulose. FEN: Continue Nepro tube feeds. Follow up with dietary recommendations. Continue free water flushes. Supplement potassium. DVT prophylaxis: SCDs/ subq heparin. dc planning to SNF-no funding- SSI pending. Problem Qualifiers (1) DM (diabetes mellitus): Qualified Code: E11.9 - Type 2 diabetes mellitus without complications Patsy Wilkes MD Sep 15, 2016 13:12
--- NOTE | 2016-09-15 17:37 | HHI.PR ---
Subjective Remarks no change on o2 , o2 SAT 96% trach ok Objective Vital Signs Date Time Temp Pulse Resp B/P Pulse Ox O2 Delivery O2 Flow Rate FiO2 09/15/16 16:00 96.2 78 22 109/63 100 09/15/16 12:00 98.4 86 22 139/84 100 09/15/16 08:50 99 T-piece 6.00 28 09/15/16 08:50 99 T-piece 6.00 28 09/15/16 08:00 98.0 93 22 119/75 98 09/15/16 07:00 T-Piece 6.00 28 Humidified 09/15/16 04:36 96.6 85 20 128/81 98 09/15/16 00:16 97.9 82 20 116/67 99 09/14/16 21:00 100 T-Piece 28 09/14/16 20:44 98.0 84 20 117/69 98 I/O 09/14/16 09/14/16 09/14/16 09/15/16 09/15/16 09/15/16 07:00 15:00 23:00 07:00 15:00 23:00 Intake Total 822 ml Output Total 550 ml 725 ml 800 ml 400 ml 550 ml Balance 272 ml -725 ml -800 ml -400 ml -550 ml Tube Feeding 422 ml Other 400 ml Output Urine Total 550 ml 725 ml 800 ml 400 ml 550 ml # Bowel Movements 3 2 Procedures 01/02/16 PEG placement 01/02/16 tracheostomy 07/22/2016 Wide excision of sacral skin wound, biopsy of the cavity lining and debridement. PEG tube replacement 07/29/16 Objective Remarks GENERAL: SKIN: Warm and dry. HEAD: Atraumatic. Normocephalic. EYES: Pupils equal and round. No scleral icterus. No injection or drainage. ENT: No nasal bleeding or discharge. Mucous membranes pink and moist. NECK: Trachea midline. No JVD. TRACH. [place] CARDIOVASCULAR: Regular rate and rhythm. RESPIRATORY: No accessory muscle use. Clear to auscultation. Breath sounds equal bilaterally. GASTROINTESTINAL: Abdomen soft, non-tender, nondistended. Hepatic and splenic margins not palpable. MUSCULOSKELETAL: Extremities without clubbing, cyanosis, or edema. No obvious deformities. NEUROLOGICAL: Awake and alert. No obvious cranial nerve deficits. Motor grossly within normal limits. Five out of 5 muscle strength in the arms and legs. Normal speech. PSYCHIATRIC: Appropriate mood and affect; insight and judgment normal. Assessment and Plan Assessment and Plan respiratory failure CVA S/P TRACHEOSTOMY PLAN O2 NEEDED PULM. TOILET Brandon Taylor MD Sep 15, 2016 17:37
[2016-09-15] MEDS: PARoxetine HCL SUSP 20 MG/10 ML UDC PEG SCH (19:00)
[2016-09-15] MEDS: INSULIN DETEMIR 100 UNITS/ML VIAL SQ SCH (21:46)
[2016-09-16] VITALS (11 sets, daily range): BP systolic 107–127; BP diastolic 60–80; PULSE 73–92; RESP 20–26; TEMP 96.6–97.4; O2SAT 97–99
[2016-09-16] MEDS: ACETAMINOPHEN/HYDROcodone 325 MG/5 MG TAB PEG SCH ×5 (00:41→23:42)
[2016-09-16] MEDS: FREE WATER TUBE SCH ×7 (04:00→23:44)
[2016-09-16] MEDS: AMOXICILLIN (TRIHYDRATE) 500 MG CAP PO SCH ×3 (06:47→22:00)
[2016-09-16] MEDS: HEPARIN SODIUM - SQ 10,000 UNITS/ML VIAL SQ SCH ×3 (06:47→23:28)
[2016-09-16] MEDS: ACETIC ACID 0.25% SOLN 1000 ML IRR BTL IRRIGATION SCH ×3 (06:47→23:40)
[2016-09-16] MEDS: INSULIN ASPART SUPPLEMENTAL SCALE SQ SCH (07:00)
[2016-09-16] MEDS: METOPROLOL TARTRATE 50 MG TAB PO SCH ×2 (07:45→23:26)
[2016-09-16] MEDS: POTASSIUM CHLORIDE 25 MEQ EFFERVESCENT TAB TUBE SCH (07:45)
[2016-09-16] MEDS: levETIRAcetam 500 MG/5 ML UDC TUBE SCH ×2 (07:45→23:26)
[2016-09-16] MEDS: LACTULOSE SYRUP 20 GM/30 ML CUP PO SCH (07:45)
[2016-09-16] MEDS: LACTOBACILLUS ACIDOPHILUS TAB PEG SCH ×3 (07:45→18:01)
[2016-09-16] MEDS: DOCUSATE SODIUM 100 MG/10 ML UDC PO SCH ×2 (07:45→23:26)
[2016-09-16] MEDS: ASPIRIN 325 MG TAB TUBE SCH (07:46)
[2016-09-16] MEDS: SENNOSIDES 8.6 MG TAB PO SCH (07:46)
[2016-09-16] MEDS: DILTIAZEM HCL 30 MG TAB PEG SCH ×4 (07:47→23:26)
[2016-09-16] MEDS: SODIUM CHLORIDE 0.65% NASAL SPRAY 45 ML BTL NASAL SCH ×2 (08:00→21:00)
[2016-09-16] MEDS: ARTIFICIAL TEARS OPTH SOLN 15 ML BTL EACH EYE SCH ×2 (08:00→23:42)
[2016-09-16] MEDS: PANTOPRAZOLE SODIUM 40 MG VIAL IV PUSH SCH ×2 (10:11→23:26)
[2016-09-16] MEDS: NYSTATIN 100,000 U/GM PWD 15 GM BTL TOPICAL SCH ×2 (14:30→23:41)
[2016-09-16] MEDS: BACITRACIN TOP OINT 15 GM TUBE TOP SCH ×2 (14:48→23:40)
--- NOTE | 2016-09-16 14:52 | HHI.PR ---
Subjective Remarks no change on o2 , o2 SAT 95% trach ok Objective Vital Signs Date Time Temp Pulse Resp B/P Pulse Ox O2 Delivery O2 Flow Rate FiO2 09/16/16 12:00 96.8 77 25 110/65 98 09/16/16 10:45 97 T-Piece 6.00 28 Humidified 09/16/16 10:44 82 09/16/16 08:00 96.8 85 26 127/80 97 09/16/16 07:43 98 T-piece 28 09/16/16 04:20 96.8 73 20 108/60 99 09/16/16 01:45 98 T-piece 6.00 28 09/16/16 00:39 96.6 75 20 107/61 97 09/15/16 20:00 96.6 86 20 121/73 98 09/15/16 20:00 T-Piece 6.00 28 Humidified 09/15/16 16:00 96.2 78 22 109/63 100 I/O 09/15/16 09/15/16 09/15/16 09/16/16 09/16/16 09/16/16 07:00 15:00 23:00 07:00 15:00 23:00 Output Total 400 ml 550 ml 850 ml 350 ml Balance -400 ml -550 ml -850 ml -350 ml Output Urine Total 400 ml 550 ml 850 ml 350 ml # Bowel Movements 2 Procedures 01/02/16 PEG placement 01/02/16 tracheostomy 07/22/2016 Wide excision of sacral skin wound, biopsy of the cavity lining and debridement. PEG tube replacement 07/29/16 Objective Remarks GENERAL: SKIN: Warm and dry. HEAD: Atraumatic. Normocephalic. EYES: Pupils equal and round. No scleral icterus. No injection or drainage. ENT: No nasal bleeding or discharge. Mucous membranes pink and moist. NECK: Trachea midline. No JVD. TRACH. [place] CARDIOVASCULAR: Regular rate and rhythm. RESPIRATORY: No accessory muscle use. Clear to auscultation. Breath sounds equal bilaterally. GASTROINTESTINAL: Abdomen soft, non-tender, nondistended. Hepatic and splenic margins not palpable. MUSCULOSKELETAL: Extremities without clubbing, cyanosis, or edema. No obvious deformities. NEUROLOGICAL: Awake and alert. No obvious cranial nerve deficits. Motor grossly within normal limits. Five out of 5 muscle strength in the arms and legs. Normal speech. PSYCHIATRIC: Appropriate mood and affect; insight and judgment normal. Assessment and Plan Assessment and Plan impression respiratory failure CVA S/P TRACHEOSTOMY PLAN O2 NEEDED PULM. TOILET Brandon Taylor MD Sep 16, 2016 14:52
--- NOTE | 2016-09-16 14:53 | HHI.PR ---
Immediate Post Op Note Procedure Date: Sep 16, 2016 Pre Op Diagnosis: Post Op Diagnosis: Surgeon: Brandon Taylor MD Pick Up Operator(s): none Procedure: flex. bronch Findings: tracheobronchitis Complications: none Specimen(s) removed: washings Estimated blood loss: none Anesthesia: General Drains: None IVF Brandon Taylor MD Sep 16, 2016 14:53
--- NOTE | 2016-09-16 16:44 | HHI.PR ---
Subjective Remarks Patient continues to be nonresponsive. at the bedside. He is awake today but does not follow commands. he is tracking. no acute events. Objective Vitals Vital Signs Date Time Temp Pulse Resp B/P Pulse Ox O2 Delivery O2 Flow Rate FiO2 09/16/16 16:00 97.2 77 24 115/71 98 09/16/16 12:00 96.8 77 25 110/65 98 09/16/16 10:45 97 T-Piece 6.00 28 Humidified 09/16/16 10:44 82 09/16/16 08:00 96.8 85 26 127/80 97 09/16/16 07:43 98 T-piece 28 09/16/16 04:20 96.8 73 20 108/60 99 09/16/16 01:45 98 T-piece 6.00 28 09/16/16 00:39 96.6 75 20 107/61 97 09/15/16 20:00 96.6 86 20 121/73 98 09/15/16 20:00 T-Piece 6.00 28 Humidified I/O 09/15/16 09/15/16 09/15/16 09/16/16 09/16/16 09/16/16 07:00 15:00 23:00 07:00 15:00 23:00 Output Total 400 ml 550 ml 850 ml 350 ml 850 ml Balance -400 ml -550 ml -850 ml -350 ml -850 ml Output Urine Total 400 ml 550 ml 850 ml 350 ml 850 ml # Bowel Movements 2 0 Objective Remarks Gen NAD CV RRR. no r//g Resp trach in place CTA B/L abd soft NDNT NEURO patient is awake and tracking but does not follow commands. Procedures 01/02/16 PEG placement 01/02/16 tracheostomy 07/22/2016 Wide excision of sacral skin wound, biopsy of the cavity lining and debridement. PEG tube replacement 07/29/16 Medications and IVs Current Medications IV Flush (NS Flush) 2 ml UNSCH PRN IVF FLUSH AFTER USING IV ACCESS Last administered on 09/13/16t 21:44; Start 12/21/15 at 06:00 Ondansetron HCl (Zofran Inj) 4 mg STK-MED ONCE .ROUTE ; Start 12/21/15 at 06:22; Stop 12/21/15 at 06:23; Status DC Ondansetron HCl (Zofran Inj) 4 mg ONCE ONCE IV PUSH Last administered on at 06:43; Start 12/21/15 at 06:30; Stop 12/21/15 at 06:31; Status DC Diltiazem HCl 20 mg 20 mg ONCE ONCE IV Last administered on 12/21/15at 06:42; Start 12/21/15 at 06:30; Stop 12/21/15 at 06:31; Status DC Diltiazem HCl/ Sodium Chloride (Cardizem Inj/NS Inj) 125 ml @ 0 mls/hr TITRATE IV Last administered on 12/21/15at 06:47; Start 12/21/15 at 06:30; Stop 12/21/15 at 13:00; Status DC Acetaminophen (Tylenol) 650 mg ONCE ONCE PO ; Start 12/21/15 at 06:45; Stop 12/20 at 06:46; Status DC Lorazepam (Ativan Inj) 1 mg ONCE ONCE IV PUSH Last administered on 12/21/15at 07 :22; Start 12/21/15 at 07:15; Stop 12/21/15 at 07:16; Status DC Etomidate (Amidate Inj) 40 mg STK-MED ONCE .ROUTE Last administered on at 08:17; Start 12/21/15 at 07:37; Stop 12/21/15 at 07:38; Status DC Succinylcholine Chloride 200 mg 200 mg STK-MED ONCE .ROUTE Last administered on 12/21/15at 08:18; Start 12/21/15 at 07:37; Stop 12/21/15 at 07:38; Status DC Propofol (Diprivan 1000 Mg/100ml Inj) 100 ml @ As Directed STK-MED ONCE .ROUTE Last administered on 12/21/15at 08:19; Start 12/21/15 at 07:46; Stop 12/21/15 at 07:47; Status DC Propofol (Diprivan 1000 Mg/100ml Inj) search Sets for Drip. NOW PRN IV SEDATION Last administered on 12/22/15at 06:25; Start 12/21/15 at 08:30; Stop 12/28 at 15:43; Status DC Gadodiamide (Omniscan Pf Inj) 18 ml STK-MED ONCE IV Last administered on 6/2/ 16at 10:11; Start 12/21/15 at 10:11; Stop 12/21/15 at 10:12; Status DC Pantoprazole Sodium (Protonix Inj) 40 mg DAILY IV Last administered on at 07:39; Start 12/21/15 at 13:00; Stop 01/03/16 at 10:10; Status DC Albuterol/ Ipratropium (Duoneb Neb) 1 ampule Q6HR NEB INH Last administered on 12/25/15at 07:51; Start 12/21/15 at 13:00; Stop 12/25/15 at 13:00; Status DC Miscellaneous Information 1 [id number] Last administered on 12/21/15at 13:00; Start 12/21/15 at 13:00; Stop 01/12/16 at 11:47; Status DC Chlorhexidine Gluconate (Chlorhexidine 2% Cloth) 3 pack Taper DAILY@04 TOP Last administered on 01/11/16at 04:10; Start 12/22/15 at 04:00; Stop 01/12/16 at 11:47; Status DC Chlorhexidine Gluconate 3 pack 3 pack UNSCH PRN TOP HYGIENIC CARE; Start at 13:00; Stop 01/12/16 at 11:47; Status DC Sodium Chloride (NS 1000 ml Inj) 1,000 ml @ 75 mls/hr [id number] IV Last administered on 12/22/15at 17:00; Start 12/21/15 at 13:00; Stop 12/22/15 at 19:01; Status DC Dextrose (D50w (Vial) Inj) 25 ml UNSCH PRN IV PUSH HYPOGLYCEMIA-SEE COMMENTS; Start 12/21/15 at 13:00; Stop 04/19/16 at 17:19; Status DC Glucagon (Glucagon Inj) 1 mg UNSCH PRN OTHER HYPOGLYCEMIA-SEE COMMENTS; Start 12/21/15 at 13:00; Stop 04/19/16 at 17:19; Status DC Insulin Human Regular (NovoLIN R SUPPLEMENTAL SCALE) 1 Q6H SQ Last administered on 01/04/16at 06:31; Start 12/21/15 at 13:00; Stop 01/04/16 at 10:05 ; Status DC Levetriacetam (Keppra) 500 mg Q12HR PO Last administered on 12/27/15at 09:00; Start 12/21/15 at 13:45; Stop 12/27/15 at 09:44; Status DC Heparin Sodium (Porcine) (Heparin Inj) 5,000 units BID SQ Last administered on 12/22/15at 20:52; Start 12/21/15 at 21:00; Stop 12/23/15 at 08:32; Status DC Warfarin Sodium (Coumadin) 7.5 mg ONCE ONCE PO Last administered on 12/21/15at 21:43; Start 12/21/15 at 21:00; Stop 12/21/15 at 21:01; Status DC Warfarin Sodium (Coumadin) 5 mg DAILY@16 PO Last administered on 12/23/15at 16:00 ; Start 12/22/15 at 16:00; Stop 12/26/15 at 09:29; Status DC Patient Medication Teaching (Coumadin Booklet) 1 ONCE ONCE XX Last administered on 12/21/15at 20:15; Start 12/21/15 at 20:15; Stop 12/21/15 at 20:16; Status DC Chlorhexidine Gluconate (Peridex 0.12% Liq) 15 ml BID@08,20 MT Last administered on 01/12/16at 08:00; Start 12/22/15 at 20:00; Stop 01/12/16 at 11:47 ; Status DC Gadodiamide 20 ml 20 ml STK-MED ONCE IV Last administered on 12/22/15at 09:55; Start 12/22/15 at 09:55; Stop 12/22/15 at 09:56; Status DC Pharmacy Profile Note ml @ 0 mls/hr UNSCH OTHER ; Start 12/22/15 at 11:00; Stop 12/22/15 at 19:43; Status DC Sodium Chloride 1,000 ml @ 50 mls/hr Q20H IV Last administered on 12/24/15at 20: 02; Start 12/22/15 at 18:44; Stop 12/25/15 at 11:52; Status DC Pharmacy Profile Note (Coumadin Consult Pharmacy) 0 ml @ 0 mls/hr UNSCH OTHER ; Start 12/22/15 at 19:45; Stop 01/04/16 at 12:25; Status DC Acetaminophen 650 mg 650 mg Q6H PRN PO TEMP > 100 Last administered on at 13:24; Start 12/23/15 at 02:45; Stop 12/30/15 at 15:04; Status DC Potassium Chloride 100 ml @ 50 mls/hr Q2H PRN IV For Potassium 2.8 - 3.2 mEq/L ; Start 12/23/15 at 08:30; Stop 01/09/16 at 11:14; Status DC Potassium Chloride (KCl 20 Meq Premix Inj) 100 ml @ 50 mls/hr Q2H PRN IV For Potassium 2.8 - 3.2 mEq/L; Start 12/23/15 at 08:30; Stop 01/09/16 at 11:14; Status DC Potassium Chloride 40 meq 40 meq UNSCH PRN PO/TUBE For Potassium 3.3 - 3.5 mEq/ L; Start 12/23/15 at 08:30; Stop 01/09/16 at 11:14; Status DC Potassium Chloride 100 ml @ 25 mls/hr UNSCH PRN IV For Potassium 3.3 - 3.5 mEq /L; Start 12/23/15 at 08:30; Stop 01/09/16 at 11:14; Status DC Potassium Chloride 100 ml @ 50 mls/hr Q2H PRN IV For Potassium 3.3 - 3.5 mEq/L ; Start 12/23/15 at 08:30; Stop 01/09/16 at 11:14; Status DC Magnesium Sulfate/ Sodium Chloride (Magnesium Sulfate Inj/NS Inj) 100 ml @ 50 mls/hr UNSCH PRN IV For Magnesium 0.9 - 1.1 mg/dL; Start 12/23/15 at 08:30; Stop 01/09/16 at 11:14; Status DC Magnesium Oxide 800 mg 800 mg UNSCH PRN PO For Magnesium 1.2 - 1.6 mg/dL; Start 12/23/15 at 08:30; Stop 01/09/16 at 11:14; Status DC Magnesium Sulfate/ Sodium Chloride (Magnesium Sulfate Inj/NS Inj) 100 ml @ 50 mls/hr UNSCH PRN IV For Magnesium 1.2 - 1.6 mg/dL; Start 12/23/15 at 08:30; Stop 01/09/16 at 11:14; Status DC Potassium Phosphate 2000 mg 2,000 mg Q4H PRN PO For Phosphorus < 2.5 mg/dL; Start 12/23/15 at 08:30; Stop 01/09/16 at 11:14; Status DC Sodium Phosphate/ Sodium Chloride (Sodium Phosphate Inj/NS 250 ml Inj) 250 ml @ 42 mls/hr UNSCH PRN IV For Phosphorus < 2.5 mg/dL; Start 12/23/15 at 08:30; Stop 01/09/16 at 11:14; Status DC Potassium Chloride (KCl 40 Meq/30 ml Liq) 40 meq UNSCH PRN PO/TUBE SEE LABEL COMMENTS; Start 12/23/15 at 08:30; Stop 01/09/16 at 11:14; Status DC Potassium Phosphate 2000 mg 2,000 mg UNSCH PRN PO/TUBE SEE LABEL COMMENTS; Start 12/23/15 at 08:30; Stop 01/09/16 at 11:14; Status DC Potassium Phosphate 30 mmol/ Sodium Chloride 260 ml @ 42 mls/hr UNSCH PRN IV SEE LABEL COMMENTS; Start 12/23/15 at 08:30; Stop 01/09/16 at 11:14; Status DC Sodium Chloride 1,000 ml @ 75 mls/hr [id number] IV ; Start 12/23/15 at 08:30; Stop 12/23/15 at 08:30; Status DC Piperacillin Sod/ Tazobactam Sod 50 ml @ 100 mls/hr Q6H IV Last administered on 12/30/15at 10:02; Start 12/23/15 at 10:00; Stop 12/30/15 at 14:50; Status DC Vancomycin HCl/ Sodium Chloride (Vancomycin Inj/ NS 250 ml Inj) 250 ml @ 250 mls/hr Q12H IV Last administered on 12/29/15at 09:01; Start 12/24/15 at 08:45; Stop 12/29/15 at 15:33; Status DC Warfarin Sodium (Coumadin) 4 mg DAILY@16 PO Last administered on 12/28/15at 16:00 ; Start 12/26/15 at 16:00; Stop 01/04/16 at 12:25; Status DC Levetriacetam (Keppra Liq) 500 mg Q12HR TUBE Last administered on 09/16/16t 07 :45; Start 12/27/15 at 21:00 Docusate Sodium (Colace Liq) 100 mg Q12HR TUBE Last administered on 01/15/16at 09:01; Start 12/27/15 at 21:00; Stop 04/16/16 at 08:50; Status DC Sennosides (Senna Liq) 8.8 mg DAILY TUBE Last administered on 01/15/16at 09:01 ; Start 12/27/15 at 17:00; Stop 01/15/16 at 20:37; Status DC Bisacodyl (Dulcolax Supp) 10 mg ONCE ONCE RECTAL ; Start 12/27/15 at 16:15; Stop 12/27/15 at 16:15; Status DC Albuterol/ Ipratropium (Duoneb Neb) 1 ampule Q4HR NEB PRN NEB RESPIRATORY DISTRESS Last administered on 12/29/15at 12:17; Start 12/27/15 at 22:00; Stop at 08:16; Status DC Bisacodyl (Dulcolax Supp) 10 mg ONCE ONCE RECTAL ; Start 12/28/15 at 12:00; Stop 12/28/15 at 12:01; Status DC Sodium Chloride (Sodium Chloride) 1 gm BID TUBE Last administered on 12/29/15at 09:02; Start 12/28/15 at 21:00; Stop 12/29/15 at 15:43; Status DC Lactulose (Lactulose Liq) 30 ml DAILY TUBE Last administered on 12/29/15at 09:02 ; Start 12/28/15 at 20:30; Stop 12/29/15 at 15:43; Status DC Levofloxacin (Levaquin) 750 mg DAILY@16 TUBE ; Start 12/29/15 at 16:00; Stop 05/05 at 16:00; Status DC Sodium Chloride (Sodium Chloride) 1 gm DAILY TUBE Last administered on at 07:29; Start 12/30/15 at 09:00; Stop 12/31/15 at 14:08; Status DC Water 200 ml 200 ml Q6HR G-TUBE Last administered on 12/31/15at 04:19; Start 06/05 at 14:45; Stop 12/31/15 at 07:31; Status DC Ceftriaxone Sodium/Sodium Chloride (Rocephin Inj/NS Inj) 100 ml @ 200 mls/hr Q12H IV Last administered on 01/03/16at 02:47; Start 12/30/15 at 15:00; Stop at 10:09; Status DC Acetaminophen (Tylenol 650 Mg/ 20 ml Liq) 650 mg Q6H PRN TUBE TEMP >100.4 Last administered on 08/23/16t 12:52; Start 12/30/15 at 15:15 Lactobacillus Acidophilus (Lactinex Pkt) 1 gm BID TUBE Last administered on at 09:00; Start 12/30/15 at 21:00; Stop 02/10/16 at 14:30; Status DC Enoxaparin Sodium (Lovenox Inj) 90 mg Q12H SQ Last administered on 01/01/16at 21 :57; Start 12/31/15 at 08:00; Stop 01/03/16 at 10:33; Status DC Water (Free Water) 100 ml Q12H G-TUBE ; Start 12/31/15 at 18:00; Stop 12/31/15 at 18:00; Status DC Acetaminophen/ Hydrocodone Bitart (Switzer 5-325 Mg) 1 tab Q6H PRN PO PAIN Last administered on 05/26/16at 20:46; Start 12/31/15 at 15:00; Stop 06/02/16 at 21: 44; Status DC Fentanyl Citrate (Sublimaze Inj) 25 mcg Q1H PRN IV PUSH BREAKTHROUGH PAIN; Start 12/31/15 at 15:00; Stop 03/06/16 at 10:03; Status DC Water (Free Water) 200 ml Q8H G-TUBE Last administered on 01/01/16at 17:55; Start 12/31/15 at 18:00; Stop 01/02/16 at 09:56; Status DC Sodium Chloride (Sodium Chloride) 1 gm BID TUBE Last administered on 01/03/16at 07:39; Start 12/31/15 at 21:00; Stop 01/03/16 at 09:08; Status DC Miscellaneous Information Hold Anticoagulation after midni... ONCE ONCE OTHER ; Start 01/01/16 at 10:15; Stop 01/01/16 at 10:29; Status DC Sodium Chloride (NS 1000 ml Inj) 1,000 ml @ 50 mls/hr Q20H IV Last administered on 01/02/16at 12:26; Start 01/01/16 at 18:00; Stop 01/03/16 at 10:07 ; Status DC Midazolam HCl (Versed Inj) 5 mg STK-MED ONCE .ROUTE ; Start 01/02/16 at 12:47; Stop 01/02/16 at 12:48; Status DC Vecuronium Herreid (Norcuron 10 Mg Inj) 10 mg STK-MED ONCE .ROUTE ; Start at 12:47; Stop 01/02/16 at 12:48; Status DC Fentanyl Citrate (Sublimaze Inj) 250 mcg ONCE ONCE IV PUSH Last administered on 01/02/16at 15:00; Start 01/02/16 at 15:00; Stop 01/02/16 at 15:01; Status DC Midazolam HCl (Versed Inj) 10 mg ONCE ONCE IV PUSH Last administered on at 15:00; Start 01/02/16 at 15:00; Stop 01/02/16 at 15:01; Status DC Rocuronium Herreid (Zemuron Inj) 100 mg BOLUS ONCE IV Last administered on at 15:00; Start 01/02/16 at 15:00; Stop 01/02/16 at 15:01; Status DC Ketamine HCl (Ketalar Inj) 500 mg STK-MED ONCE .ROUTE ; Start 01/02/16 at 14:30 ; Stop 01/02/16 at 14:31; Status DC Propofol 230 mg 230 mg STK-MED ONCE IV ; Start 01/02/16 at 16:51; Stop 01/02/16 at 16:52; Status DC Sodium Chloride (NS 1000 ml Inj) 1,000 ml @ 0 mls/hr Q0M IV ; Start 01/03/16 at 10:15; Stop 01/17/16 at 17:30; Status DC Ranitidine HCl (Zantac Liq) 150 mg Q12HR PO Last administered on 01/17/16at 07: 39; Start 01/04/16 at 09:00; Stop 01/17/16 at 15:23; Status DC Enoxaparin Sodium 90 mg 90 mg Q12HR SQ Last administered on 01/11/16at 10:01; Start 01/04/16 at 09:00; Stop 01/11/16 at 12:35; Status DC Sodium Chloride (NS 500 ml Inj) 500 ml @ 0 mls/hr BOLUS ONCE IV Last administered on 01/03/16at 22:57; Start 01/03/16 at 23:00; Stop 01/03/16 at 23:01 ; Status DC Insulin Aspart (NovoLOG SUPPLEMENTAL SCALE) 1 Q6HR SQ Last administered on at 12:00; Start 01/04/16 at 12:00; Stop 03/24/16 at 13:58; Status DC Potassium Chloride (KCl 40 Meq/30 ml Liq) 40 meq Q4H NG Last administered on at 16:21; Start 01/04/16 at 13:00; Stop 01/04/16 at 17:01; Status DC Warfarin Sodium 5 mg 5 mg DAILY@1600 PO Last administered on 01/09/16at 17:21; Start 01/04/16 at 16:00; Stop 01/10/16 at 10:06; Status DC Pharmacy Profile Note (Coumadin Consult Pharmacy) 0 ml @ 0 mls/hr UNSCH XX ; Start 01/04/16 at 12:30; Stop 04/20/16 at 12:04; Status DC Insulin Detemir (Levemir Inj) 10 units Q12HR SQ Last administered on 01/05/16at 08:00; Start 01/04/16 at 21:00; Stop 01/05/16 at 08:42; Status DC Insulin Detemir (Levemir Inj) 5 units NOW ONCE SQ Last administered on at 13:28; Start 01/04/16 at 12:45; Stop 01/04/16 at 12:46; Status DC Albuterol/ Ipratropium (Duoneb Neb) 1 ampule Q4HR NEB PRN NEB dyspnea Last administered on 04/19/16at 02:24; Start 01/07/16 at 08:15; Stop 04/25/16 at 18:54 ; Status DC Warfarin Sodium (Coumadin) 7.5 mg ONCE ONCE PO Last administered on 01/07/16at 16:40; Start 01/07/16 at 16:00; Stop 01/07/16 at 16:01; Status DC Nystatin (Mycostatin Powder) 1 applic Q12HR TOPICAL Last administered on t 21:48; Start 01/08/16 at 21:00 Ipratropium Herreid (Atrovent Neb) 0.5 mg TID NEB NEB Last administered on 02/20at 13:17; Start 01/08/16 at 20:00; Stop 02/21/16 at 17:52; Status DC Warfarin Sodium (Coumadin) 5 mg DAILY@1600 PO Last administered on 01/11/16at 14 :26; Start 01/11/16 at 16:00; Stop 01/12/16 at 09:45; Status DC Warfarin Sodium (Coumadin) 6 mg ONCE PO Last administered on 01/10/16at 17:10; Start 01/10/16 at 16:00; Stop 01/10/16 at 21:00; Status DC Metoprolol Tartrate (Lopressor) 50 mg Q12HR GT Last administered on 01/11/16at 10:02; Start 01/10/16 at 11:00; Stop 01/11/16 at 12:30; Status DC Metoprolol Tartrate (Lopressor) 50 mg TID GT Last administered on 01/14/16at 08: 24; Start 01/11/16 at 13:00; Stop 01/14/16 at 08:28; Status DC Insulin Detemir (Levemir Inj) 10 units HS SQ Last administered on 01/11/16at 22: 23; Start 01/11/16 at 21:00; Stop 01/12/16 at 11:47; Status DC Warfarin Sodium (Coumadin) 4 mg DAILY@16 PO ; Start 01/12/16 at 16:00; Stop at 16:00; Status DC Insulin Detemir (Levemir Inj) 20 units HS SQ Last administered on 01/13/16at 20: 26; Start 01/12/16 at 21:00; Stop 01/14/16 at 08:28; Status DC Warfarin Sodium (Coumadin) 2 mg DAILY@16 PO Last administered on 01/13/16at 17: 05; Start 01/12/16 at 16:00; Stop 01/14/16 at 11:23; Status DC Insulin Detemir (Levemir Inj) 22 units HS SQ Last administered on 01/14/16at 21: 37; Start 01/14/16 at 21:00; Stop 01/15/16 at 10:06; Status DC Metoprolol Tartrate (Lopressor) 75 mg TID GT Last administered on 03/10/16at 17: 43; Start 01/14/16 at 09:00; Stop 03/10/16 at 21:13; Status DC Miscellaneous (Pill Splitter) 1 ea UNSCH PRN OTHER SEE LABEL COMMENTS; Start at 08:30 Warfarin Sodium (Coumadin) 4 mg DAILY@1600 PO Last administered on 01/21/16at 16: 51; Start 01/14/16 at 16:00; Stop 01/23/16 at 09:29; Status DC Patient Medication Teaching (Coumadin Booklet) 1 ONCE ONCE XX ; Start 01/14/16 at 16:00; Stop 01/14/16 at 16:01; Status DC Insulin Detemir (Levemir Inj) 24 units HS SQ Last administered on 03/04/16at 21: 09; Start 01/15/16 at 21:00; Stop 03/05/16 at 11:17; Status DC Citalopram Hydrobromide (CeleXA) 20 mg DAILY PEG Last administered on at 08:01; Start 01/16/16 at 09:00; Stop 01/16/16 at 09:41; Status DC Sennosides (Senna Liq) 8.8 mg BID TUBE Last administered on 02/20/16at 08:32; Start 01/15/16 at 21:00; Stop 02/20/16 at 16:13; Status DC Gadodiamide 18 ml 18 ml STK-MED ONCE IV ; Start 01/16/16 at 20:40; Stop at 20:41; Status DC Sodium Chloride (NS 1000 ml Inj) 1,000 ml @ 125 mls/hr Q8H IV Last administered on 01/17/16at 15:11; Start 01/17/16 at 15:00; Stop 01/17/16 at 17:31 ; Status DC Ranitidine HCl 150 mg 150 mg Q24H PO Last administered on 07/28/16t 08:54; Start 01/18/16 at 09:00; Stop 07/30/16 at 10:05; Status DC Sodium Chloride 1,000 ml @ 75 mls/hr [id number] IV Last administered on at 05:22; Start 01/17/16 at 18:00; Stop 01/18/16 at 09:28; Status DC Sodium Chloride/ Sterile Water (Sodium Chloride 23.4% Inj/Sterile Water For Inj ) 1,009.625 ml @ 60 mls/hr [id number] IV Last administered on 01/21/16at 22:46; Start 01/18/16 at 11:00; Stop 01/22/16 at 10:09; Status DC Potassium Chloride (KCl) 40 meq ONCE ONCE PO ; Start 01/18/16 at 09:30; Stop at 09:31; Status DC Potassium Chloride (KCl 40 Meq/30 ml Liq) 40 meq ONCE ONCE TUBE Last administered on 01/18/16at 11:08; Start 01/18/16 at 11:00; Stop 01/18/16 at 11:01 ; Status DC Water (Free Water) 300 ml Q4HR TUBE Last administered on 01/19/16at 08:00; Start 01/18/16 at 12:00; Stop 01/19/16 at 10:43; Status DC Water (Free Water) 400 ml Q4HR TUBE Last administered on 04/16/16at 04:00; Start 01/19/16 at 12:00; Stop 04/16/16 at 09:09; Status DC Potassium Chloride (KCl 40 Meq/30 ml Liq) 40 meq ONCE ONCE NG Last administered on 01/19/16at 11:41; Start 01/19/16 at 11:00; Stop 01/19/16 at 11:01; Status DC Potassium Chloride 60 meq 60 meq ONCE ONCE PO/TUBE Last administered on at 13:30; Start 01/21/16 at 11:15; Stop 01/21/16 at 11:27; Status DC Sodium Chloride (1/2 NS 1000 ml Inj) 1,000 ml @ 30 mls/hr Q24H IV Last administered on 02/06/16at 11:26; Start 01/22/16 at 11:00; Stop 02/07/16 at 14:49 ; Status DC Warfarin Sodium (Coumadin) 3 mg DAILY@16 PO Last administered on 01/23/16at 17:19 ; Start 01/23/16 at 16:00; Stop 01/24/16 at 14:05; Status DC Warfarin Sodium (Coumadin) 3 mg DAILY@16 PO Last administered on 01/25/16at 15:59 ; Start 01/25/16 at 16:00; Stop 01/26/16 at 15:04; Status DC Warfarin Sodium (Coumadin) 4 mg ONCE@1600 ONCE PO Last administered on at 16:55; Start 01/24/16 at 16:00; Stop 01/24/16 at 16:01; Status DC Warfarin Sodium (Coumadin) 3 mg DAILY@16 PO ; Start 01/27/16 at 16:00; Stop at 16:00; Status DC Warfarin Sodium (Coumadin) 4 mg ONCE@1600 ONCE PO Last administered on at 16:52; Start 01/26/16 at 16:00; Stop 01/26/16 at 16:01; Status DC Potassium Chloride (KCl 40 Meq/30 ml Liq) 80 meq ONCE ONCE PO Last administered on 01/27/16at 07:45; Start 01/27/16 at 07:45; Stop 01/27/16 at 08:10; Status DC Warfarin Sodium (Coumadin) 4 mg DAILY@16 PO Last administered on 02/02/16at 17: 22; Start 01/27/16 at 16:00; Stop 02/03/16 at 11:37; Status DC Acetic Acid (Acetic Acid 0.25% Irr Btl) 10 ml Q8HR IRRIGATION Last administered on 02/05/16at 06:00; Start 01/28/16 at 22:00; Stop 02/05/16 at 15:51 ; Status DC Warfarin Sodium 3 mg 3 mg DAILY@1600 PO Last administered on 02/11/16at 17:34; Start 02/03/16 at 16:00; Stop 02/12/16 at 12:45; Status DC Ceftriaxone Sodium/Sodium Chloride (Rocephin Inj/NS Inj) 100 ml @ 200 mls/hr Q24H IV Last administered on 02/10/16at 05:23; Start 02/05/16 at 06:30; Stop at 14:32; Status DC Acetic Acid (Acetic Acid 0.25% Irr Btl) 10 ml Q8HR IRRIGATION ; Start 02/05/16 at 16:00; Status Cancel Acetic Acid (Acetic Acid 0.25% Irr Btl) 10 ml Q8HR IRRIGATION Last administered on 09/16/16t 14:00; Start 02/05/16 at 16:00 Lactobacillus Acidophilus (Lactinex) 1 tab Q12HR PO Last administered on at 08:25; Start 02/10/16 at 21:00; Stop 02/12/16 at 16:05; Status DC Warfarin Sodium (Coumadin) 4 mg DAILY@1600 PO Last administered on 02/14/16at 15 :56; Start 02/12/16 at 16:00; Stop 02/15/16 at 10:17; Status DC Paroxetine HCl (Paxil Liq) 20 mg DAILY PEG Last administered on 02/25/16at 07:33 ; Start 02/16/16 at 09:00; Stop 02/25/16 at 10:36; Status DC Warfarin Sodium (Coumadin) 3 mg DAILY@1600 PO Last administered on 02/19/16at 16: 42; Start 02/15/16 at 16:00; Stop 02/20/16 at 08:50; Status DC Warfarin Sodium (Coumadin) 4 mg DAILY@16 PO Last administered on 02/21/16at 15:54 ; Start 02/20/16 at 16:00; Stop 02/22/16 at 08:46; Status DC Sennosides (Senna Liq) 8.8 mg DAILY TUBE Last administered on 05/26/16at 08:14 ; Start 02/21/16 at 09:00; Stop 05/27/16 at 11:51; Status DC Albuterol Sulfate (Albuterol Neb) 2.5 mg QID NEB INH Last administered on at 19:51; Start 02/21/16 at 20:00; Stop 02/25/16 at 20:00; Status DC Acetylcysteine (Mucomyst 10% Neb) 1 ml QID NEB NEB Last administered on at 16:32; Start 02/21/16 at 20:00; Stop 02/23/16 at 16:01; Status DC Warfarin Sodium (Coumadin) 3 mg DAILY@16 PO Last administered on 02/22/16at 15:59 ; Start 02/22/16 at 16:00; Stop 02/23/16 at 08:56; Status DC Warfarin Sodium (Coumadin) 3 mg DAILY@16 PO Last administered on 02/28/16at 16: 17; Start 02/24/16 at 16:00; Stop 02/29/16 at 10:04; Status DC Warfarin Sodium (Coumadin) 2 mg ONCE PO Last administered on 02/23/16at 16:22; Start 02/23/16 at 16:00; Stop 02/23/16 at 21:00; Status DC Paroxetine HCl (Paxil Liq) 20 mg DAILY@1900 PEG Last administered on 03/08/16at 18:11; Start 02/26/16 at 19:00; Stop 03/09/16 at 11:31; Status DC Warfarin Sodium (Coumadin) 3 mg DAILY@16 PO Last administered on 03/06/16at 16: 22; Start 03/01/16 at 16:00; Stop 03/09/16 at 10:30; Status DC Warfarin Sodium (Coumadin) 1 mg ONCE PO Last administered on 02/29/16at 17:28; Start 02/29/16 at 16:00; Stop 02/29/16 at 21:00; Status DC Insulin Detemir (Levemir Inj) 27 units HS SQ Last administered on 03/05/16at 20: 25; Start 03/05/16 at 21:00; Stop 03/06/16 at 10:03; Status DC Patient Medication Teaching (Coumadin Booklet) 1 ONCE ONCE XX Last administered on 03/05/16at 16:00; Start 03/05/16 at 16:00; Stop 03/05/16 at 16:01 ; Status DC Insulin Detemir (Levemir Inj) 30 units HS SQ Last administered on 03/21/16at 22: 32; Start 03/06/16 at 21:00; Stop 03/22/16 at 14:48; Status DC Trimethoprim/ Sulfamethoxazole (Bactrim 800-160 Mg/20 ml Liq) 20 ml Q12HR PO Last administered on 03/14/16at 08:01; Start 03/07/16 at 11:15; Stop 03/14/16 at 11:14; Status DC Lorazepam (Ativan Inj) 0.5 mg Q4H PRN IV PUSH seizures or agitation; Start at 23:00 Metronidazole (Flagyl) 500 mg Q8H PO Last administered on 03/14/16at 15:51; Start 03/08/16 at 17:00; Stop 03/14/16 at 23:00; Status DC Warfarin Sodium (Coumadin) 2 mg DAILY@16 PO Last administered on 03/09/16at 17: 20; Start 03/09/16 at 16:00; Stop 03/10/16 at 10:33; Status DC Paroxetine HCl (Paxil) 20 mg DAILY@1900 PEG Last administered on 03/11/16at 17: 55; Start 03/09/16 at 19:00; Stop 03/12/16 at 08:31; Status DC Warfarin Sodium 3 mg 3 mg DAILY@16 PO Last administered on 04/12/16at 15:28; Start 03/10/16 at 16:00; Stop 04/12/16 at 16:39; Status DC Pharmacy Profile Note 0 ml @ 0 mls/hr UNSCH OTHER ; Start 03/10/16 at 14:15; Stop 03/18/16 at 11:33; Status DC Vancomycin HCl/ Sodium Chloride (Vancomycin Inj/ NS 500 ml Inj) 530 ml @ 265 mls/hr Q12H IV Last administered on 03/17/16at 16:26; Start 03/10/16 at 16:00; Stop 03/17/16 at 23:00; Status DC Miscellaneous Information SPECIFIC LAB TO BE ... ONCE ONCE XX Last administered on 03/12/16at 04:45; Start 03/12/16 at 03:45; Stop 03/12/16 at 03:46 ; Status DC Metoprolol Tartrate (Lopressor) 75 mg Q8HR PO Last administered on 04/02/16at 13 :13; Start 03/10/16 at 22:00; Stop 04/02/16 at 17:31; Status DC Paroxetine HCl (Paxil Liq) 20 mg DAILY@1900 PEG Last administered on 09/15/16t 19:00; Start 03/12/16 at 19:00 Warfarin Sodium (Coumadin) 1 mg ONCE PO Last administered on 03/21/16at 16:24; Start 03/21/16 at 16:00; Stop 03/21/16 at 21:00; Status DC Warfarin Sodium (Coumadin) 1 mg ONCE PO Last administered on 03/22/16at 17:46; Start 03/22/16 at 16:00; Stop 03/22/16 at 21:00; Status DC Insulin Detemir (Levemir Inj) 32 units HS SQ Last administered on 03/22/16at 20: 18; Start 03/22/16 at 21:00; Stop 03/23/16 at 13:35; Status DC Diltiazem HCl (Cardizem Cd) 120 mg DAILY PO Last administered on 04/14/16at 07: 43; Start 03/22/16 at 16:00; Stop 04/14/16 at 14:39; Status DC Hyoscyamine Sulfate (Levsin Liq) 0.125 mg Q4H PRN PEG INCREASED SECRETIONS Last administered on 04/10/16at 08:05; Start 03/22/16 at 15:15; Stop 04/11/16 at 10:24; Status DC Warfarin Sodium (Coumadin) 2 mg ONCE ONCE PO Last administered on 03/23/16at 17: 26; Start 03/23/16 at 16:00; Stop 03/23/16 at 16:01; Status DC Insulin Detemir (Levemir Inj) 34 units HS SQ Last administered on 03/23/16at 20: 01; Start 03/23/16 at 21:00; Stop 03/24/16 at 13:53; Status DC Insulin Detemir (Levemir Inj) 35 units HS SQ Last administered on 09/15/16t 21: 46; Start 03/24/16 at 21:00 Insulin Aspart (NovoLOG SUPPLEMENTAL SCALE) 1 ACHS SLIDING SCALE SQ Last administered on 04/16/16at 22:27; Start 03/24/16 at 16:00; Stop 04/19/16 at 17:19 ; Status DC Warfarin Sodium (Coumadin) 1 mg ONCE ONCE PO Last administered on 03/30/16at 16 :59; Start 03/30/16 at 16:00; Stop 03/30/16 at 16:01; Status DC Potassium Chloride (KCl 40 Meq/30 ml Liq) 40 meq ONCE ONCE NG Last administered on 03/31/16at 21:28; Start 03/31/16 at 18:30; Stop 03/31/16 at 18:31 ; Status DC Potassium Bicarb/ Potassium Chloride (K-Lyte Cl Eff) 25 meq ONCE ONCE PEG Last administered on 04/02/16at 12:01; Start 04/02/16 at 13:00; Stop 04/02/16 at 13:01; Status DC Metoprolol Tartrate (Lopressor) 75 mg BID PO Last administered on 05/28/16at 21: 03; Start 04/02/16 at 21:00; Stop 05/29/16 at 11:21; Status DC Potassium Bicarb/ Potassium Chloride (K-Lyte Cl Eff) 25 meq ONCE ONCE PEG Last administered on 04/04/16at 14:40; Start 04/04/16 at 12:30; Stop 04/04/16 at 12:31; Status DC Linezolid (Zyvox) 600 mg Q12HR PO Last administered on 04/16/16at 09:11; Start 04/05/16 at 15:00; Stop 04/16/16 at 12:00; Status DC Artificial Tears (Lacrilube Opht Oint) 1 applic Q12HR EACH EYE Last administered on 09/04/16 21:00; Start 04/10/16 at 11:00; Stop 09/05/16 at 14:38 ; Status DC Hyoscyamine Sulfate (Levsin) 0.25 mg Q4H PRN G-TUBE INCREASED SECRETIONS Last administered on 08/31/16 05:02; Start 04/11/16 at 10:30 Diatrizoate Meglum/ Diatrizoate Sod ( Gastroview Liq) 18 ml ONCE ONCE PO Last administered on 04/12/16at 16:45; Start 04/12/16 at 16:15; Stop 04/12/16 at 16:16; Status DC Warfarin Sodium (Coumadin) 3 mg DAILY@16 PO ; Start 04/13/16 at 16:00; Stop 05/27/16 at 11:51; Status DC Iohexol (Omnipaque 350 Inj) 98 ml STK-MED ONCE IV Last administered on at 21:01; Start 04/12/16 at 21:01; Stop 04/12/16 at 21:02; Status DC Diltiazem HCl (Cardizem Cd) 180 mg DAILY PO ; Start 04/15/16 at 09:00; Stop at 08:50; Status DC Ondansetron HCl (Zofran Inj) 4 mg Q6HR PRN IV PUSH nausea/vomiting Last administered on 08/10/16t 10:16; Start 04/14/16 at 19:45 Diltiazem HCl 60 mg 60 mg QID PO Last administered on 04/25/16at 17:26; Start at 13:00; Stop 04/25/16 at 19:06; Status DC Sodium Chloride 500 ml @ 500 mls/hr BOLUS ONCE IV Last administered on at 09:15; Start 04/15/16 at 09:15; Stop 04/15/16 at 10:14; Status DC Potassium Chloride/Dextrose/ Sodium Chloride (KCl Inj/D5W-NS 1000 ml Inj) 1,005 ml @ 100 mls/hr Q10H3M IV Last administered on 04/15/16at 21:03; Start at 11:00; Stop 04/16/16 at 09:09; Status DC Enoxaparin Sodium (Lovenox Inj) 90 mg Q12H SQ Last administered on 04/16/16at 21 :12; Start 04/16/16 at 09:00; Stop 04/17/16 at 10:37; Status DC Water 200 ml 200 ml Q4HR TUBE Last administered on 09/16/16 12:00; Start 04/16 at 12:00 Sodium Chloride 1,000 ml @ 84 mls/hr [id number] IV Last administered on at 08:38; Start 04/16/16 at 10:00; Stop 04/20/16 at 12:04; Status DC Ceftriaxone Sodium/Sodium Chloride (Rocephin Inj/NS Inj) 100 ml @ 200 mls/hr Q24H IV Last administered on 05/02/16at 13:19; Start 04/16/16 at 12:00; Stop 05/03/16 at 12:06; Status DC Acetaminophen/ Hydrocodone Bitart ([place]itzer 5-325 Mg) 1 tab Q6HR PEG Last administered on 09/16/16 12:10; Start 04/18/16 at 18:00 Lactulose (Lactulose Liq) 30 ml NOW ONCE PEG Last administered on 04/19/16 17 :21; Start 04/19/16 at 17:30; Stop 04/19/16 at 17:31; Status DC Lactulose (Lactulose Liq) 30 ml DAILY PEG Last administered on 05/26/16at 08:14 ; Start 04/20/16 at 09:00; Stop 05/27/16 at 11:39; Status DC Potassium Bicarb/ Potassium Chloride (K-Lyte Cl Eff) 50 meq ONCE ONCE PO Last administered on 04/20/16at 05:52; Start 04/20/16 at 05:45; Stop 04/20/16 at 05:46; Status DC Furosemide (Lasix Inj) 20 mg ONCE ONCE IV PUSH Last administered on 04/20/16at 17:35; Start 04/20/16 at 12:00; Stop 04/20/16 at 12:06; Status DC Insulin Aspart (NovoLOG SUPPLEMENTAL SCALE) 1 ACHS SLIDING SCALE SQ Last administered on 06/02/16at 12:10; Start 04/20/16 at 16:00; Stop 06/02/16 at 21: 44; Status DC Dextrose (D50w (Vial) Inj) 25 ml UNSCH PRN IV HYPOGLYCEMIA-SEE COMMENTS; Start 04/20/16 at 12:00 Glucagon (Glucagon Inj) 1 mg UNSCH PRN IM/SQ HYPOGLYCEMIA-SEE COMMENTS; Start 04/20/16 at 12:00 Lactobacillus Acidophilus (Lactinex) 1 tab Q12HR PEG Last administered on 06/06at 21:34; Start 04/22/16 at 09:00; Stop 06/07/16 at 09:32; Status DC Furosemide (Lasix Inj) 20 mg Q12H IV PUSH Last administered on 04/24/16at 08:52 ; Start 04/22/16 at 09:00; Stop 04/24/16 at 09:25; Status DC Potassium Bicarb/ Potassium Chloride (K-Lyte Cl Eff) 25 meq Q12HR TUBE Last administered on 05/27/16at 08:17; Start 04/22/16 at 09:00; Stop 05/27/16 at 11:51 ; Status DC Albumin Human (Albumin 25% Inj) 12.5 gm Q12H IV Last administered on 04/24/16at 08:46; Start 04/22/16 at 09:00; Stop 04/24/16 at 09:25; Status DC Furosemide (Lasix Inj) 20 mg DAILY IV PUSH Last administered on 05/08/16at 09: 01; Start 04/25/16 at 09:00; Stop 05/08/16 at 11:06; Status DC Albumin Human (Albumin 25% Inj) 12.5 gm DAILY IV Last administered on at 09:02; Start 04/25/16 at 10:00; Stop 05/08/16 at 11:06; Status DC Furosemide (Lasix Inj) 40 mg ONCE ONCE IV PUSH Last administered on 04/25/16at 18:15; Start 04/25/16 at 18:15; Stop 04/25/16 at 18:16; Status DC Albuterol/ Ipratropium (Duoneb Neb) 1 ampule Q6HR NEB NEB Last administered on 04/27/16at 15:52; Start 04/25/16 at 18:30; Stop 04/27/16 at 19:45; Status DC Ipratropium Herreid (Atrovent Neb) 0.5 mg Q6HR NEB NEB Last administered on at 16:51; Start 04/25/16 at 22:00; Stop 04/27/16 at 16:44; Status DC Levalbuterol HCl (Xopenex Neb) 0.31 mg Q4HR NEB NEB Last administered on at 23:48; Start 04/25/16 at 20:00; Stop 04/27/16 at 16:43; Status DC Levalbuterol HCl (Xopenex Neb) 0.31 mg Q2HR NEB PRN NEB SHORTNESS OF BREATH; Start 04/25/16 at 18:45; Stop 04/28/16 at 10:50; Status DC Diltiazem HCl (Cardizem) 90 mg QID PEG Last administered on 07/17/16at 09:27; Start 04/25/16 at 21:00; Stop 07/17/16 at 17:52; Status DC Diltiazem HCl (Cardizem) 30 mg NOW ONCE PEG Last administered on 04/25/16at 21: 36; Start 04/25/16 at 19:15; Stop 04/25/16 at 19:16; Status DC Levalbuterol HCl (Xopenex Neb) 0.31 mg Q8HR NEB NEB ; Start 04/28/16 at 00:00; Stop 04/28/16 at 10:50; Status DC Levalbuterol HCl (Xopenex Neb) 0.63 mg Q4HR NEB PRN NEB SHORTNESS OF BREATH Last administered on 05/04/16at 15:26; Start 04/28/16 at 11:00; Stop 05/04/16 at 00:51; Status DC Levalbuterol HCl (Xopenex Neb) 0.63 mg Q8HR NEB NEB Last administered on 05/04at 00:07; Start 04/28/16 at 16:00; Stop 05/04/16 at 00:50; Status DC Polyethylene Glycol/ Electrolytes 4000 ml 4,000 ml ONCE ONCE PO Last administered on 05/05/16at 08:10; Start 05/05/16 at 08:45; Stop 05/05/16 at 08 :46; Status DC Cefazolin Sodium/ Dextrose 50 ml @ 100 mls/hr ONCE ONCE IV ; Start 05/06/16 at 14:00; Stop 05/06/16 at 14:29; Status DC Metronidazole 100 ml @ 100 mls/hr ONCE ONCE IV Last administered on at 14:00; Start 05/06/16 at 14:00; Stop 05/06/16 at 14:59; Status DC Ceftriaxone Sodium/Sodium Chloride (Rocephin Inj/NS Inj) 100 ml @ 200 mls/hr Q24H IV Last administered on 06/09/16at 12:36; Start 05/03/16 at 12:00; Stop 06/10/16 at 12:48; Status DC Levalbuterol HCl (Xopenex Neb) 0.63 mg Q8HR NEB NEB Last administered on 05/05at 08:00; Start 05/04/16 at 00:49; Stop 05/05/16 at 08:07; Status DC Levalbuterol HCl (Xopenex Neb) 0.63 mg Q4HR NEB PRN NEB SHORTNESS OF BREATH Last administered on 08/02/16t 13:48; Start 05/05/16 at 12:00 Levalbuterol HCl (Xopenex Neb) 0.63 mg Q8HR NEB NEB Last administered on 05/08at 23:56; Start 05/05/16 at 08:15; Stop 05/09/16 at 08:15; Status DC Potassium Bicarb/ Potassium Chloride (K-Lyte Cl Eff) 25 meq DAILY TUBE Last administered on 09/16/16 07:45; Start 05/28/16 at 09:00 Aspirin (Aspirin) 325 mg DAILY TUBE Last administered on 09/16/16 07:46; Start 05/27/16 at 11:40 Docusate Sodium (Colace Liq) 100 mg DAILY PRN PO constipation Last administered on 08/16/16 21:09; Start 05/27/16 at 11:45; Stop 08/31/16 at 09:00 ; Status DC Metoprolol Tartrate (Lopressor) 50 mg BID PO Last administered on 08/23/16 09: 03; Start 05/29/16 at 21:00; Stop 08/23/16 at 15:33; Status DC Acetaminophen/ Hydrocodone Bitart (Switzer 5-325 Mg) 1 tab Q6H PRN TUBE BREAKTHROUGH PAIN Last administered on 08/02/16 15:11; Start 06/03/16 at 03:00 Insulin Aspart (NovoLOG SUPPLEMENTAL SCALE) 1 ACHS SLIDING SCALE SQ Last administered on 06/06/16at 21:35; Start 06/03/16 at 07:00; Stop 06/07/16 at 12 :24; Status DC Lactobacillus Acidophilus (Lactinex) 1 tab TID PEG Last administered on 12:11; Start 06/07/16 at 13:00 Insulin Aspart 1 1 AC BREAKFAST SQ Last administered on 09/06/16 07:00; Start 06/08/16 at 07:00 Ceftriaxone Sodium/Sodium Chloride (Rocephin Inj/NS Inj) 100 ml @ 200 mls/hr Q24H IV Last administered on 07/28/16 12:19; Start 06/10/16 at 12:00; Stop 07/29/16 at 13:30; Status DC Heparin Sodium (Porcine) (Heparin Inj) 5,000 units Q12HR SQ Last administered on 06/11/16at 00:58; Start 06/10/16 at 14:15; Stop 06/11/16 at 06:21; Status DC Heparin Sodium (Porcine) (Heparin Inj) 5,000 units Q8HR SQ Last administered on 09/16/16 14:11; Start 06/11/16 at 14:00 Diltiazem HCl (Cardizem) 30 mg QID PEG Last administered on 08/16/16 08:31; Start 07/17/16 at 18:00; Stop 08/16/16 at 12:06; Status DC Bacitracin 1 applic 1 applic BID TOP Last administered on 09/16/16 14:48; Start 07/20/16 at 10:00 Lactated Ringer's 1,000 ml @ 30 mls/hr Q24H IV ; Start 07/21/16 at 17:45; Stop 08/14/16 at 12:08; Status DC Sodium Chloride (NS 500 ml Inj) 500 ml @ 30 mls/hr [id number] IV ; Start 07/21/16 at 17:45; Stop 07/22/16 at 17:44; Status DC Insulin Human Regular (NovoLIN R INJ) See Protocol Table ... UNSCH X1 PRN SQ SEE PROTOCOL; Start 07/21/16 at 17:45; Stop 07/22/16 at 17:44; Status DC Metoprolol Tartrate (Lopressor) 25 mg UNSCH X1 PRN PO SEE LABEL COMMENTS; Start 07/21/16 at 17:45; Stop 07/22/16 at 17:44; Status DC Lidocaine/ Epinephrine (Xylocaine-Epi 1%-1:100,000 Inj) 40 ml STK-MED ONCE .ROUTE Last administered on 07/22/16 10:56; Start 07/22/16 at 10:04; Stop at 10:05; Status DC Ketamine HCl (Ketalar Inj) 500 mg STK-MED ONCE .ROUTE ; Start 07/22/16 at 10:50; Stop 07/22/16 at 10:51; Status DC Propofol 600 mg 600 mg STK-MED ONCE IV ; Start 07/22/16 at 12:00; Stop 07/23/16 at 14:36; Status DC Dextrose 1,000 ml @ 40 mls/hr Q24H ONCE IV Last administered on 07/28/16 14:33 ; Start 07/28/16 at 14:00; Stop 07/29/16 at 13:59; Status DC Ampicillin Sodium/ Sulbactam Sodium/ Sodium Chloride (Unasyn Inj/NS Inj) 100 ml @ 200 mls/hr Q6H IV Last administered on 08/01/16 12:30; Start 07/29/16 at 14: 00; Stop 08/01/16 at 14:13; Status DC Ondansetron HCl 4 mg 4 mg ONCE ONCE IV PUSH Last administered on 07/30/16 02: 46; Start 07/30/16 at 00:30; Stop 07/30/16 at 00:33; Status DC Lactated Ringer's 1,000 ml @ 30 mls/hr Q24H IV ; Start 07/30/16 at 06:00; Stop 08/14/16 at 12:09; Status DC Sodium Chloride (NS 500 ml Inj) 500 ml @ 30 mls/hr [id number] IV ; Start 07/30/16 at 06:00; Stop 07/31/16 at 05:59; Status DC Pantoprazole Sodium (Protonix Inj) 40 mg Q12H IV PUSH Last administered on 09/16 10:11; Start 07/30/16 at 10:15 Propofol 200 mg 200 mg STK-MED ONCE IV ; Start 07/30/16 at 09:41; Stop 07/30/16 at 10:19; Status DC Piperacillin Sod/ Tazobactam Sod (Zosyn 4.5 Gm Premix) 100 ml @ 200 mls/hr Q6H IV Last administered on 08/07/16 09:37; Start 08/01/16 at 16:00; Stop at 16:10; Status DC Linezolid (Zyvox) 600 mg Q12HR PO Last administered on 08/22/16 09:10; Start at 21:00; Stop 08/22/16 at 15:55; Status DC Sodium Chloride ([place]) 1 spray BID NASAL Last administered on 08:00; Start 08/01/16 at 21:00 Metronidazole 500 mg 500 mg Q8H PO Last administered on 08/08/16 08:28; Start 08/07/16 at 16:00; Stop 08/08/16 at 16:10; Status DC Sodium Chloride (NS 1000 ml Inj) 1,000 ml @ 42 mls/hr [id number] IV Last administered on 08/14/16 12:44; Start 08/14/16 at 12:00; Stop 08/15/16 at 10:56 ; Status DC Fentanyl Citrate (fentaNYL INJ) 250 mcg STK-MED ONCE .ROUTE Last administered on 08/14/16 15:36; Start 08/14/16 at 15:36; Stop 08/14/16 at 15:37; Status DC Iohexol (Omnipaque 350 Inj) 30 ml STK-MED ONCE G-TUBE Last administered on 08/14 15:45; Start 08/14/16 at 15:52; Stop 08/14/16 at 15:53; Status DC Diltiazem HCl (Cardizem) 30 mg QID PEG Last administered on 09/16/16 07:47; Start 08/16/16 at 13:00 Polyethylene Glycol (Miralax) 17 gm ONCE ONCE PEG Last administered on 11:32; Start 08/17/16 at 12:00; Stop 08/17/16 at 12:01; Status DC Amoxicillin 500 mg 500 mg Q8HR PO Last administered on 09/16/16 14:11; Start 08/22/16 at 22:00 Cefepime HCl/ Sodium Chloride (Maxipime Inj/NS Inj) 100 ml @ 200 mls/hr Q8H IV Last administered on 09/03/16 10:46; Start 08/23/16 at 16:00; Stop 09/03/16 at 15:02; Status DC Metoprolol Tartrate (Lopressor) 75 mg BID PO Last administered on 09/13/16 08: 42; Start 08/23/16 at 21:00; Stop 09/13/16 at 13:09; Status DC Docusate Sodium (Colace Liq) 100 mg BID PO Last administered on 09/16/16 07:45 ; Start 08/30/16 at 21:00 Sennosides (Senokot) 17.2 mg DAILY PO Last administered on 09/16/16 07:46; Start 08/30/16 at 14:00 Lactulose (Lactulose Liq) 30 ml DAILY PO Last administered on 09/16/16 07:45; Start 09/02/16 at 15:30 Artificial Tears (Tears Naturale Opth Soln) 1 drop BID EACH EYE Last administered on 09/16/16 08:00; Start 09/05/16 at 21:00 Midazolam HCl (Versed Inj) 2 mg STK-MED ONCE .ROUTE Last administered on 2/20/ 17at 11:37; Start 09/09/16 at 11:37; Stop 09/09/16 at 11:38; Status DC Fentanyl Citrate (fentaNYL INJ) 100 mcg STK-MED ONCE .ROUTE Last administered on 09/09/16 11:38; Start 09/09/16 at 11:38; Stop 09/09/16 at 11:39; Status DC Iohexol (Omnipaque 350 Inj) 20 ml STK-MED ONCE G-TUBE Last administered on 09/09 11:50; Start 09/09/16 at 11:50; Stop 09/09/16 at 12:15; Status DC Metoprolol Tartrate (Lopressor) 50 mg BID PO Last administered on 09/16/16 07: 45; Start 09/13/16 at 21:00 Date of Insertion: Aug 03, 2016 A/P Problem List: (1) CVA (cerebral vascular accident) ICD Code: I63.9 Status: Acute (2) A-fib ICD Code: I48.91 Status: Chronic (3) DM (diabetes mellitus) ICD Code: E11.9 Status: Chronic Assessment and Plan 60-year-old male with: 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 Patient is nonverbal. Continue Keppra for seizure prophylaxis. PT/OT signed off as patient is unable to participate. Chronic respiratory failure -Secondary to CVA. Status post tracheostomy. Continue pulmonary toilet and bronchodilators as needed. Continue trach care, suctioning. Levsin as needed. On 28% FiO2 09/06. Atrial fibrillation -Continue rate control with Cardizem and metoprolol. Echocardiogram in November 2015 shows preserved ejection fraction. Coumadin discontinued secondary to bleeding. Continue aspirin and prophylactic heparin dose. HR well controlled 09/06. History of non-Hodgkin's lymphoma - Status post brain biopsy on December 13 by neurosurgery. Pathology consistent with acute infarct without evidence of lymphoma. Oncology signed off. Diabetes mellitus -Hemoglobin A1c is 7. Continue Levemir. Monitor Accu-Cheks and cover with sliding scale insulin. Glucose well controlled 09/06. Decubitus ulcer stage IV -Continue wound care, twice-daily dressing changes. Wound care recommendations. Continue pressure relief measures including turning and positioning. Patient's family has declined a diverting colostomy. Wound culture growing Klebsiella. Antibiotics per infectious disease. Status post wide excision of sacral skin and biopsy of the cavity lining with debridement on 07/22/16. Gastric ulcer, reflux esophagitis - EGD on 07/30/16 showed gastric ulcers. Appreciate GI recommendations. Continue PPI. H&H stable. UTI pseudomonas aeruginosa treated with abx - Repeat Ucx 08/28/16 negative. Constipation: -on lactulose. FEN: Continue Nepro tube feeds. Follow up with dietary recommendations. Continue free water flushes. Supplement potassium. DVT prophylaxis: SCDs/ subq heparin. dc planning to SNF-no funding- SSI pending. Problem Qualifiers (1) DM (diabetes mellitus): Qualified Code: E11.9 - Type 2 diabetes mellitus without complications Patsy Wilkes MD Sep 16, 2016 16:44
[2016-09-16] MEDS: PARoxetine HCL SUSP 20 MG/10 ML UDC PEG SCH (18:01)
[2016-09-16] MEDS: INSULIN DETEMIR 100 UNITS/ML VIAL SQ SCH (23:28)
[2016-09-16] MEDS: SODIUM CHLORIDE 0.9% FLUSH 5 ML FLUSH IVF PRN (23:29)
[2016-09-17] VITALS (7 sets, daily range): BP systolic 101–126; BP diastolic 60–76; PULSE 75–89; RESP 18–20; TEMP 96–98; O2SAT 97–100
[2016-09-17] MEDS: FREE WATER TUBE SCH ×6 (04:00→23:47)
[2016-09-17] MEDS: AMOXICILLIN (TRIHYDRATE) 500 MG CAP PO SCH ×3 (06:42→22:00)
[2016-09-17] MEDS: ACETAMINOPHEN/HYDROcodone 325 MG/5 MG TAB PEG SCH (06:42)
[2016-09-17] MEDS: HEPARIN SODIUM - SQ 10,000 UNITS/ML VIAL SQ SCH ×3 (06:42→23:34)
[2016-09-17] MEDS: ACETIC ACID 0.25% SOLN 1000 ML IRR BTL IRRIGATION SCH ×3 (06:58→23:37)
[2016-09-17] MEDS: INSULIN ASPART SUPPLEMENTAL SCALE SQ SCH (06:58)
[2016-09-17] MEDS: levETIRAcetam 500 MG/5 ML UDC TUBE SCH ×2 (08:30→23:34)
[2016-09-17] MEDS: DOCUSATE SODIUM 100 MG/10 ML UDC PO SCH ×2 (08:30→23:33)
[2016-09-17] MEDS: LACTULOSE SYRUP 20 GM/30 ML CUP PO SCH (08:30)
[2016-09-17] MEDS: POTASSIUM CHLORIDE 25 MEQ EFFERVESCENT TAB TUBE SCH (08:30)
[2016-09-17] MEDS: SENNOSIDES 8.6 MG TAB PO SCH (08:30)
[2016-09-17] MEDS: ASPIRIN 325 MG TAB TUBE SCH (08:39)
[2016-09-17] MEDS: LACTOBACILLUS ACIDOPHILUS TAB PEG SCH ×3 (08:41→17:27)
[2016-09-17] MEDS: ARTIFICIAL TEARS OPTH SOLN 15 ML BTL EACH EYE SCH ×2 (08:41→23:36)
[2016-09-17] MEDS: SODIUM CHLORIDE 0.65% NASAL SPRAY 45 ML BTL NASAL SCH ×2 (08:41→21:00)
--- NOTE | 2016-09-17 09:00 | HHI.PR ---
Subjective Remarks no change on o2 , o2 SAT 95% trach ok Objective Vital Signs Date Time Temp Pulse Resp B/P Pulse Ox O2 Delivery O2 Flow Rate FiO2 09/17/16 08:33 100 T-piece 28 09/17/16 08:00 96.9 75 20 113/67 97 09/17/16 04:00 98.0 78 18 107/67 99 09/17/16 00:53 97.8 89 20 126/62 98 09/16/16 23:30 T-Piece 6.00 28 Humidified 09/16/16 23:00 81 09/16/16 22:35 99 T-piece 6.00 28 09/16/16 20:38 97.4 92 20 127/67 99 09/16/16 16:00 97.2 77 24 115/71 98 09/16/16 12:00 96.8 77 25 110/65 98 09/16/16 10:45 97 T-Piece 6.00 28 Humidified 09/16/16 10:44 82 I/O 09/16/16 09/16/16 09/16/16 09/17/16 09/17/16 09/17/16 07:00 15:00 23:00 07:00 15:00 23:00 Output Total 350 ml 850 ml 800 ml 550 ml Balance -350 ml -850 ml -800 ml -550 ml Output Urine Total 350 ml 850 ml 800 ml 550 ml # Bowel Movements 0 Procedures 01/02/16 PEG placement 01/02/16 tracheostomy 07/22/2016 Wide excision of sacral skin wound, biopsy of the cavity lining and debridement. PEG tube replacement 07/29/16 Objective Remarks GENERAL: SKIN: Warm and dry. HEAD: Atraumatic. Normocephalic. EYES: Pupils equal and round. No scleral icterus. No injection or drainage. ENT: No nasal bleeding or discharge. Mucous membranes pink and moist. NECK: Trachea midline. No JVD. TRACH. OK CARDIOVASCULAR: Regular rate and rhythm. RESPIRATORY: No accessory muscle use. Clear to auscultation. Breath sounds equal bilaterally. GASTROINTESTINAL: Abdomen soft, non-tender, nondistended. Hepatic and splenic margins not palpable. MUSCULOSKELETAL: Extremities without clubbing, cyanosis, or edema. No obvious deformities. NEUROLOGICAL: Awake and alert. No obvious cranial nerve deficits. Motor grossly within normal limits. Five out of 5 muscle strength in the arms and legs. Normal speech. PSYCHIATRIC: Appropriate mood and affect; insight and judgment normal. Assessment and Plan Assessment and Plan impression respiratory failure CVA S/P TRACHEOSTOMY PLAN O2 NEEDED PULM. TOILET Brandon Taylor MD Sep 17, 2016 09:00
[2016-09-17] MEDS: PANTOPRAZOLE SODIUM 40 MG VIAL IV PUSH SCH ×2 (10:38→23:44)
[2016-09-17] MEDS: METOPROLOL TARTRATE 50 MG TAB PO SCH ×2 (10:39→23:37)
[2016-09-17] MEDS: DILTIAZEM HCL 30 MG TAB PEG SCH ×4 (10:39→23:37)
--- NOTE | 2016-09-17 14:26 | HHI.PR ---
Subjective Remarks f/u for CVA patient's at bedside. She stated he is on too much pain medication and is sleeping all the time. She asked if I can change his pain medication where he can get one tab at midnight so he can sleep and before dressing changes. Otherwise no acute events since he was last seen. He continues to be nonresponsive. Objective Vitals Vital Signs Date Time Temp Pulse Resp B/P Pulse Ox O2 Delivery O2 Flow Rate FiO2 09/17/16 14:16 98 T-Piece 6.00 28 Humidified 09/17/16 12:00 97.1 75 18 118/76 98 09/17/16 08:33 100 T-piece 28 09/17/16 08:00 96.9 75 20 113/67 97 09/17/16 04:00 98.0 78 18 107/67 99 09/17/16 00:53 97.8 89 20 126/62 98 09/16/16 23:30 T-Piece 6.00 28 Humidified 09/16/16 23:00 81 09/16/16 22:35 99 T-piece 6.00 28 09/16/16 20:38 97.4 92 20 127/67 99 09/16/16 16:00 97.2 77 24 115/71 98 I/O 09/16/16 09/16/16 09/16/16 09/17/16 09/17/16 09/17/16 07:00 15:00 23:00 07:00 15:00 23:00 Output Total 350 ml 850 ml 800 ml 550 ml Balance -350 ml -850 ml -800 ml -550 ml Output Urine Total 350 ml 850 ml 800 ml 550 ml # Bowel Movements 0 Objective Remarks Gen NAD CV RRR. no r//g Resp trach in place CTA B/L abd soft NDNT NEURO patient is awake and tracking but does not follow commands. Procedures 01/02/16 PEG placement 01/02/16 tracheostomy 07/22/2016 Wide excision of sacral skin wound, biopsy of the cavity lining and debridement. PEG tube replacement 07/29/16 Medications and IVs Current Medications IV Flush (NS Flush) 2 ml UNSCH PRN IVF FLUSH AFTER USING IV ACCESS Last administered on 09/16/16t 23:29; Start 12/21/15 at 06:00 Ondansetron HCl (Zofran Inj) 4 mg STK-MED ONCE .ROUTE ; Start 12/21/15 at 06:22; Stop 12/21/15 at 06:23; Status DC Ondansetron HCl (Zofran Inj) 4 mg ONCE ONCE IV PUSH Last administered on at 06:43; Start 12/21/15 at 06:30; Stop 12/21/15 at 06:31; Status DC Diltiazem HCl 20 mg 20 mg ONCE ONCE IV Last administered on 12/21/15at 06:42; Start 12/21/15 at 06:30; Stop 12/21/15 at 06:31; Status DC Diltiazem HCl/ Sodium Chloride (Cardizem Inj/NS Inj) 125 ml @ 0 mls/hr TITRATE IV Last administered on 12/21/15at 06:47; Start 12/21/15 at 06:30; Stop 12/21/15 at 13:00; Status DC Acetaminophen (Tylenol) 650 mg ONCE ONCE PO ; Start 12/21/15 at 06:45; Stop 12/20 at 06:46; Status DC Lorazepam (Ativan Inj) 1 mg ONCE ONCE IV PUSH Last administered on 12/21/15at 07 :22; Start 12/21/15 at 07:15; Stop 12/21/15 at 07:16; Status DC Etomidate (Amidate Inj) 40 mg STK-MED ONCE .ROUTE Last administered on at 08:17; Start 12/21/15 at 07:37; Stop 12/21/15 at 07:38; Status DC Succinylcholine Chloride 200 mg 200 mg STK-MED ONCE .ROUTE Last administered on 12/21/15at 08:18; Start 12/21/15 at 07:37; Stop 12/21/15 at 07:38; Status DC Propofol (Diprivan 1000 Mg/100ml Inj) 100 ml @ As Directed STK-MED ONCE .ROUTE Last administered on 12/21/15at 08:19; Start 12/21/15 at 07:46; Stop 12/21/15 at 07:47; Status DC Propofol (Diprivan 1000 Mg/100ml Inj) search Sets for Drip. NOW PRN IV SEDATION Last administered on 12/22/15at 06:25; Start 12/21/15 at 08:30; Stop 12/28 at 15:43; Status DC Gadodiamide (Omniscan Pf Inj) 18 ml STK-MED ONCE IV Last administered on at 10:11; Start 12/21/15 at 10:11; Stop 12/21/15 at 10:12; Status DC Pantoprazole Sodium (Protonix Inj) 40 mg DAILY IV Last administered on at 07:39; Start 12/21/15 at 13:00; Stop 01/03/16 at 10:10; Status DC Albuterol/ Ipratropium (Duoneb Neb) 1 ampule Q6HR NEB INH Last administered on 12/25/15at 07:51; Start 12/21/15 at 13:00; Stop 12/25/15 at 13:00; Status DC Miscellaneous Information 1 [id number] Last administered on 12/21/15at 13:00; Start 12/21/15 at 13:00; Stop 01/12/16 at 11:47; Status DC Chlorhexidine Gluconate (Chlorhexidine 2% Cloth) 3 pack Taper DAILY@04 TOP Last administered on 01/11/16at 04:10; Start 12/22/15 at 04:00; Stop 01/12/16 at 11:47; Status DC Chlorhexidine Gluconate 3 pack 3 pack UNSCH PRN TOP HYGIENIC CARE; Start at 13:00; Stop 01/12/16 at 11:47; Status DC Sodium Chloride (NS 1000 ml Inj) 1,000 ml @ 75 mls/hr [id number] IV Last administered on 12/22/15at 17:00; Start 12/21/15 at 13:00; Stop 12/22/15 at 19:01; Status DC Dextrose (D50w (Vial) Inj) 25 ml UNSCH PRN IV PUSH HYPOGLYCEMIA-SEE COMMENTS; Start 12/21/15 at 13:00; Stop 04/19/16 at 17:19; Status DC Glucagon (Glucagon Inj) 1 mg UNSCH PRN OTHER HYPOGLYCEMIA-SEE COMMENTS; Start 12/21/15 at 13:00; Stop 04/19/16 at 17:19; Status DC Insulin Human Regular (NovoLIN R SUPPLEMENTAL SCALE) 1 Q6H SQ Last administered on 01/04/16at 06:31; Start 12/21/15 at 13:00; Stop 01/04/16 at 10:05 ; Status DC Levetriacetam (Keppra) 500 mg Q12HR PO Last administered on 12/27/15at 09:00; Start 12/21/15 at 13:45; Stop 12/27/15 at 09:44; Status DC Heparin Sodium (Porcine) (Heparin Inj) 5,000 units BID SQ Last administered on 12/22/15at 20:52; Start 12/21/15 at 21:00; Stop 12/23/15 at 08:32; Status DC Warfarin Sodium (Coumadin) 7.5 mg ONCE ONCE PO Last administered on 12/21/15at 21:43; Start 12/21/15 at 21:00; Stop 12/21/15 at 21:01; Status DC Warfarin Sodium (Coumadin) 5 mg DAILY@16 PO Last administered on 12/23/15at 16:00 ; Start 12/22/15 at 16:00; Stop 12/26/15 at 09:29; Status DC Patient Medication Teaching (Coumadin Booklet) 1 ONCE ONCE XX Last administered on 12/21/15at 20:15; Start 12/21/15 at 20:15; Stop 12/21/15 at 20:16; Status DC Chlorhexidine Gluconate (Peridex 0.12% Liq) 15 ml BID@08,20 MT Last administered on 01/12/16at 08:00; Start 12/22/15 at 20:00; Stop 01/12/16 at 11:47 ; Status DC Gadodiamide 20 ml 20 ml STK-MED ONCE IV Last administered on 12/22/15at 09:55; Start 12/22/15 at 09:55; Stop 12/22/15 at 09:56; Status DC Pharmacy Profile Note ml @ 0 mls/hr UNSCH OTHER ; Start 12/22/15 at 11:00; Stop 12/22/15 at 19:43; Status DC Sodium Chloride 1,000 ml @ 50 mls/hr Q20H IV Last administered on 12/24/15at 20: 02; Start 12/22/15 at 18:44; Stop 12/25/15 at 11:52; Status DC Pharmacy Profile Note (Coumadin Consult Pharmacy) 0 ml @ 0 mls/hr UNSCH OTHER ; Start 12/22/15 at 19:45; Stop 01/04/16 at 12:25; Status DC Acetaminophen 650 mg 650 mg Q6H PRN PO TEMP > 100 Last administered on at 13:24; Start 12/23/15 at 02:45; Stop 12/30/15 at 15:04; Status DC Potassium Chloride 100 ml @ 50 mls/hr Q2H PRN IV For Potassium 2.8 - 3.2 mEq/L ; Start 12/23/15 at 08:30; Stop 01/09/16 at 11:14; Status DC Potassium Chloride (KCl 20 Meq Premix Inj) 100 ml @ 50 mls/hr Q2H PRN IV For Potassium 2.8 - 3.2 mEq/L; Start 12/23/15 at 08:30; Stop 01/09/16 at 11:14; Status DC Potassium Chloride 40 meq 40 meq UNSCH PRN PO/TUBE For Potassium 3.3 - 3.5 mEq/ L; Start 12/23/15 at 08:30; Stop 01/09/16 at 11:14; Status DC Potassium Chloride 100 ml @ 25 mls/hr UNSCH PRN IV For Potassium 3.3 - 3.5 mEq /L; Start 12/23/15 at 08:30; Stop 01/09/16 at 11:14; Status DC Potassium Chloride 100 ml @ 50 mls/hr Q2H PRN IV For Potassium 3.3 - 3.5 mEq/L ; Start 12/23/15 at 08:30; Stop 01/09/16 at 11:14; Status DC Magnesium Sulfate/ Sodium Chloride (Magnesium Sulfate Inj/NS Inj) 100 ml @ 50 mls/hr UNSCH PRN IV For Magnesium 0.9 - 1.1 mg/dL; Start 12/23/15 at 08:30; Stop 01/09/16 at 11:14; Status DC Magnesium Oxide 800 mg 800 mg UNSCH PRN PO For Magnesium 1.2 - 1.6 mg/dL; Start 12/23/15 at 08:30; Stop 01/09/16 at 11:14; Status DC Magnesium Sulfate/ Sodium Chloride (Magnesium Sulfate Inj/NS Inj) 100 ml @ 50 mls/hr UNSCH PRN IV For Magnesium 1.2 - 1.6 mg/dL; Start 12/23/15 at 08:30; Stop 01/09/16 at 11:14; Status DC Potassium Phosphate 2000 mg 2,000 mg Q4H PRN PO For Phosphorus < 2.5 mg/dL; Start 12/23/15 at 08:30; Stop 01/09/16 at 11:14; Status DC Sodium Phosphate/ Sodium Chloride (Sodium Phosphate Inj/NS 250 ml Inj) 250 ml @ 42 mls/hr UNSCH PRN IV For Phosphorus < 2.5 mg/dL; Start 12/23/15 at 08:30; Stop 01/09/16 at 11:14; Status DC Potassium Chloride (KCl 40 Meq/30 ml Liq) 40 meq UNSCH PRN PO/TUBE SEE LABEL COMMENTS; Start 12/23/15 at 08:30; Stop 01/09/16 at 11:14; Status DC Potassium Phosphate 2000 mg 2,000 mg UNSCH PRN PO/TUBE SEE LABEL COMMENTS; Start 12/23/15 at 08:30; Stop 01/09/16 at 11:14; Status DC Potassium Phosphate 30 mmol/ Sodium Chloride 260 ml @ 42 mls/hr UNSCH PRN IV SEE LABEL COMMENTS; Start 12/23/15 at 08:30; Stop 01/09/16 at 11:14; Status DC Sodium Chloride 1,000 ml @ 75 mls/hr [id number] IV ; Start 12/23/15 at 08:30; Stop 12/23/15 at 08:30; Status DC Piperacillin Sod/ Tazobactam Sod 50 ml @ 100 mls/hr Q6H IV Last administered on 12/30/15at 10:02; Start 12/23/15 at 10:00; Stop 12/30/15 at 14:50; Status DC Vancomycin HCl/ Sodium Chloride (Vancomycin Inj/ NS 250 ml Inj) 250 ml @ 250 mls/hr Q12H IV Last administered on 12/29/15at 09:01; Start 12/24/15 at 08:45; Stop 12/29/15 at 15:33; Status DC Warfarin Sodium (Coumadin) 4 mg DAILY@16 PO Last administered on 12/28/15at 16:00 ; Start 12/26/15 at 16:00; Stop 01/04/16 at 12:25; Status DC Levetriacetam (Keppra Liq) 500 mg Q12HR TUBE Last administered on 09/17/16t 08 :30; Start 12/27/15 at 21:00 Docusate Sodium (Colace Liq) 100 mg Q12HR TUBE Last administered on 01/15/16at 09:01; Start 12/27/15 at 21:00; Stop 04/16/16 at 08:50; Status DC Sennosides (Senna Liq) 8.8 mg DAILY TUBE Last administered on 01/15/16at 09:01 ; Start 12/27/15 at 17:00; Stop 01/15/16 at 20:37; Status DC Bisacodyl (Dulcolax Supp) 10 mg ONCE ONCE RECTAL ; Start 12/27/15 at 16:15; Stop 12/27/15 at 16:15; Status DC Albuterol/ Ipratropium (Duoneb Neb) 1 ampule Q4HR NEB PRN NEB RESPIRATORY DISTRESS Last administered on 12/29/15at 12:17; Start 12/27/15 at 22:00; Stop at 08:16; Status DC Bisacodyl (Dulcolax Supp) 10 mg ONCE ONCE RECTAL ; Start 12/28/15 at 12:00; Stop 12/28/15 at 12:01; Status DC Sodium Chloride (Sodium Chloride) 1 gm BID TUBE Last administered on 12/29/15at 09:02; Start 12/28/15 at 21:00; Stop 12/29/15 at 15:43; Status DC Lactulose (Lactulose Liq) 30 ml DAILY TUBE Last administered on 12/29/15at 09:02 ; Start 12/28/15 at 20:30; Stop 12/29/15 at 15:43; Status DC Levofloxacin (Levaquin) 750 mg DAILY@16 TUBE ; Start 12/29/15 at 16:00; Stop 05/05 at 16:00; Status DC Sodium Chloride (Sodium Chloride) 1 gm DAILY TUBE Last administered on at 07:29; Start 12/30/15 at 09:00; Stop 12/31/15 at 14:08; Status DC Water 200 ml 200 ml Q6HR G-TUBE Last administered on 12/31/15at 04:19; Start 06/05 at 14:45; Stop 12/31/15 at 07:31; Status DC Ceftriaxone Sodium/Sodium Chloride (Rocephin Inj/NS Inj) 100 ml @ 200 mls/hr Q12H IV Last administered on 01/03/16at 02:47; Start 12/30/15 at 15:00; Stop at 10:09; Status DC Acetaminophen (Tylenol 650 Mg/ 20 ml Liq) 650 mg Q6H PRN TUBE TEMP >100.4 Last administered on 08/23/16t 12:52; Start 12/30/15 at 15:15 Lactobacillus Acidophilus (Lactinex Pkt) 1 gm BID TUBE Last administered on at 09:00; Start 12/30/15 at 21:00; Stop 02/10/16 at 14:30; Status DC Enoxaparin Sodium (Lovenox Inj) 90 mg Q12H SQ Last administered on 01/01/16at 21 :57; Start 12/31/15 at 08:00; Stop 01/03/16 at 10:33; Status DC Water (Free Water) 100 ml Q12H G-TUBE ; Start 12/31/15 at 18:00; Stop 12/31/15 at 18:00; Status DC Acetaminophen/ Hydrocodone Bitart (Smoot 5-325 Mg) 1 tab Q6H PRN PO PAIN Last administered on 05/26/16at 20:46; Start 12/31/15 at 15:00; Stop 06/02/16 at 21: 44; Status DC Fentanyl Citrate (Sublimaze Inj) 25 mcg Q1H PRN IV PUSH BREAKTHROUGH PAIN; Start 12/31/15 at 15:00; Stop 03/06/16 at 10:03; Status DC Water (Free Water) 200 ml Q8H G-TUBE Last administered on 01/01/16at 17:55; Start 12/31/15 at 18:00; Stop 01/02/16 at 09:56; Status DC Sodium Chloride (Sodium Chloride) 1 gm BID TUBE Last administered on 01/03/16at 07:39; Start 12/31/15 at 21:00; Stop 01/03/16 at 09:08; Status DC Miscellaneous Information Hold Anticoagulation after midni... ONCE ONCE OTHER ; Start 01/01/16 at 10:15; Stop 01/01/16 at 10:29; Status DC Sodium Chloride (NS 1000 ml Inj) 1,000 ml @ 50 mls/hr Q20H IV Last administered on 01/02/16at 12:26; Start 01/01/16 at 18:00; Stop 01/03/16 at 10:07 ; Status DC Midazolam HCl (Versed Inj) 5 mg STK-MED ONCE .ROUTE ; Start 01/02/16 at 12:47; Stop 01/02/16 at 12:48; Status DC Vecuronium [place] (Norcuron 10 Mg Inj) 10 mg STK-MED ONCE .ROUTE ; Start at 12:47; Stop 01/02/16 at 12:48; Status DC Fentanyl Citrate (Sublimaze Inj) 250 mcg ONCE ONCE IV PUSH Last administered on 01/02/16at 15:00; Start 01/02/16 at 15:00; Stop 01/02/16 at 15:01; Status DC Midazolam HCl (Versed Inj) 10 mg ONCE ONCE IV PUSH Last administered on at 15:00; Start 01/02/16 at 15:00; Stop 01/02/16 at 15:01; Status DC Rocuronium [place] (Zemuron Inj) 100 mg BOLUS ONCE IV Last administered on at 15:00; Start 01/02/16 at 15:00; Stop 01/02/16 at 15:01; Status DC Ketamine HCl (Ketalar Inj) 500 mg STK-MED ONCE .ROUTE ; Start 01/02/16 at 14:30 ; Stop 01/02/16 at 14:31; Status DC Propofol 230 mg 230 mg STK-MED ONCE IV ; Start 01/02/16 at 16:51; Stop 01/02/16 at 16:52; Status DC Sodium Chloride (NS 1000 ml Inj) 1,000 ml @ 0 mls/hr Q0M IV ; Start 01/03/16 at 10:15; Stop 01/17/16 at 17:30; Status DC Ranitidine HCl (Zantac Liq) 150 mg Q12HR PO Last administered on 01/17/16at 07: 39; Start 01/04/16 at 09:00; Stop 01/17/16 at 15:23; Status DC Enoxaparin Sodium 90 mg 90 mg Q12HR SQ Last administered on 01/11/16at 10:01; Start 01/04/16 at 09:00; Stop 01/11/16 at 12:35; Status DC Sodium Chloride (NS 500 ml Inj) 500 ml @ 0 mls/hr BOLUS ONCE IV Last administered on 01/03/16at 22:57; Start 01/03/16 at 23:00; Stop 01/03/16 at 23:01 ; Status DC Insulin Aspart (NovoLOG SUPPLEMENTAL SCALE) 1 Q6HR SQ Last administered on at 12:00; Start 01/04/16 at 12:00; Stop 03/24/16 at 13:58; Status DC Potassium Chloride (KCl 40 Meq/30 ml Liq) 40 meq Q4H NG Last administered on at 16:21; Start 01/04/16 at 13:00; Stop 01/04/16 at 17:01; Status DC Warfarin Sodium 5 mg 5 mg DAILY@1600 PO Last administered on 01/09/16at 17:21; Start 01/04/16 at 16:00; Stop 01/10/16 at 10:06; Status DC Pharmacy Profile Note (Coumadin Consult Pharmacy) 0 ml @ 0 mls/hr UNSCH XX ; Start 01/04/16 at 12:30; Stop 04/20/16 at 12:04; Status DC Insulin Detemir (Levemir Inj) 10 units Q12HR SQ Last administered on 01/05/16at 08:00; Start 01/04/16 at 21:00; Stop 01/05/16 at 08:42; Status DC Insulin Detemir (Levemir Inj) 5 units NOW ONCE SQ Last administered on at 13:28; Start 01/04/16 at 12:45; Stop 01/04/16 at 12:46; Status DC Albuterol/ Ipratropium (Duoneb Neb) 1 ampule Q4HR NEB PRN NEB dyspnea Last administered on 04/19/16at 02:24; Start 01/07/16 at 08:15; Stop 04/25/16 at 18:54 ; Status DC Warfarin Sodium (Coumadin) 7.5 mg ONCE ONCE PO Last administered on 01/07/16at 16:40; Start 01/07/16 at 16:00; Stop 01/07/16 at 16:01; Status DC Nystatin (Mycostatin Powder) 1 applic Q12HR TOPICAL Last administered on t 23:41; Start 01/08/16 at 21:00 Ipratropium [place] (Atrovent Neb) 0.5 mg TID NEB NEB Last administered on 02/20at 13:17; Start 01/08/16 at 20:00; Stop 02/21/16 at 17:52; Status DC Warfarin Sodium (Coumadin) 5 mg DAILY@1600 PO Last administered on 01/11/16at 14 :26; Start 01/11/16 at 16:00; Stop 01/12/16 at 09:45; Status DC Warfarin Sodium (Coumadin) 6 mg ONCE PO Last administered on 01/10/16at 17:10; Start 01/10/16 at 16:00; Stop 01/10/16 at 21:00; Status DC Metoprolol Tartrate (Lopressor) 50 mg Q12HR GT Last administered on 01/11/16at 10:02; Start 01/10/16 at 11:00; Stop 01/11/16 at 12:30; Status DC Metoprolol Tartrate (Lopressor) 50 mg TID GT Last administered on 01/14/16at 08: 24; Start 01/11/16 at 13:00; Stop 01/14/16 at 08:28; Status DC Insulin Detemir (Levemir Inj) 10 units HS SQ Last administered on 01/11/16at 22: 23; Start 01/11/16 at 21:00; Stop 01/12/16 at 11:47; Status DC Warfarin Sodium (Coumadin) 4 mg DAILY@16 PO ; Start 01/12/16 at 16:00; Stop at 16:00; Status DC Insulin Detemir (Levemir Inj) 20 units HS SQ Last administered on 01/13/16at 20: 26; Start 01/12/16 at 21:00; Stop 01/14/16 at 08:28; Status DC Warfarin Sodium (Coumadin) 2 mg DAILY@16 PO Last administered on 01/13/16at 17: 05; Start 01/12/16 at 16:00; Stop 01/14/16 at 11:23; Status DC Insulin Detemir (Levemir Inj) 22 units HS SQ Last administered on 01/14/16at 21: 37; Start 01/14/16 at 21:00; Stop 01/15/16 at 10:06; Status DC Metoprolol Tartrate (Lopressor) 75 mg TID GT Last administered on 03/10/16at 17: 43; Start 01/14/16 at 09:00; Stop 03/10/16 at 21:13; Status DC Miscellaneous (Pill Splitter) 1 ea UNSCH PRN OTHER SEE LABEL COMMENTS; Start at 08:30 Warfarin Sodium (Coumadin) 4 mg DAILY@1600 PO Last administered on 01/21/16at 16: 51; Start 01/14/16 at 16:00; Stop 01/23/16 at 09:29; Status DC Patient Medication Teaching (Coumadin Booklet) 1 ONCE ONCE XX ; Start 01/14/16 at 16:00; Stop 01/14/16 at 16:01; Status DC Insulin Detemir (Levemir Inj) 24 units HS SQ Last administered on 03/04/16at 21: 09; Start 01/15/16 at 21:00; Stop 03/05/16 at 11:17; Status DC Citalopram Hydrobromide (CeleXA) 20 mg DAILY PEG Last administered on at 08:01; Start 01/16/16 at 09:00; Stop 01/16/16 at 09:41; Status DC Sennosides (Senna Liq) 8.8 mg BID TUBE Last administered on 02/20/16at 08:32; Start 01/15/16 at 21:00; Stop 02/20/16 at 16:13; Status DC Gadodiamide 18 ml 18 ml STK-MED ONCE IV ; Start 01/16/16 at 20:40; Stop at 20:41; Status DC Sodium Chloride (NS 1000 ml Inj) 1,000 ml @ 125 mls/hr Q8H IV Last administered on 01/17/16at 15:11; Start 01/17/16 at 15:00; Stop 01/17/16 at 17:31 ; Status DC Ranitidine HCl 150 mg 150 mg Q24H PO Last administered on 07/28/16t 08:54; Start 01/18/16 at 09:00; Stop 07/30/16 at 10:05; Status DC Sodium Chloride 1,000 ml @ 75 mls/hr [id number] IV Last administered on at 05:22; Start 01/17/16 at 18:00; Stop 01/18/16 at 09:28; Status DC Sodium Chloride/ Sterile Water (Sodium Chloride 23.4% Inj/Sterile Water For Inj ) 1,009.625 ml @ 60 mls/hr [id number] IV Last administered on 01/21/16at 22:46; Start 01/18/16 at 11:00; Stop 01/22/16 at 10:09; Status DC Potassium Chloride (KCl) 40 meq ONCE ONCE PO ; Start 01/18/16 at 09:30; Stop at 09:31; Status DC Potassium Chloride (KCl 40 Meq/30 ml Liq) 40 meq ONCE ONCE TUBE Last administered on 01/18/16at 11:08; Start 01/18/16 at 11:00; Stop 01/18/16 at 11:01 ; Status DC Water (Free Water) 300 ml Q4HR TUBE Last administered on 01/19/16at 08:00; Start 01/18/16 at 12:00; Stop 01/19/16 at 10:43; Status DC Water (Free Water) 400 ml Q4HR TUBE Last administered on 04/16/16at 04:00; Start 01/19/16 at 12:00; Stop 04/16/16 at 09:09; Status DC Potassium Chloride (KCl 40 Meq/30 ml Liq) 40 meq ONCE ONCE NG Last administered on 01/19/16at 11:41; Start 01/19/16 at 11:00; Stop 01/19/16 at 11:01; Status DC Potassium Chloride 60 meq 60 meq ONCE ONCE PO/TUBE Last administered on at 13:30; Start 01/21/16 at 11:15; Stop 01/21/16 at 11:27; Status DC Sodium Chloride (1/2 NS 1000 ml Inj) 1,000 ml @ 30 mls/hr Q24H IV Last administered on 02/06/16at 11:26; Start 01/22/16 at 11:00; Stop 02/07/16 at 14:49 ; Status DC Warfarin Sodium (Coumadin) 3 mg DAILY@16 PO Last administered on 01/23/16at 17:19 ; Start 01/23/16 at 16:00; Stop 01/24/16 at 14:05; Status DC Warfarin Sodium (Coumadin) 3 mg DAILY@16 PO Last administered on 01/25/16at 15:59 ; Start 01/25/16 at 16:00; Stop 01/26/16 at 15:04; Status DC Warfarin Sodium (Coumadin) 4 mg ONCE@1600 ONCE PO Last administered on at 16:55; Start 01/24/16 at 16:00; Stop 01/24/16 at 16:01; Status DC Warfarin Sodium (Coumadin) 3 mg DAILY@16 PO ; Start 01/27/16 at 16:00; Stop at 16:00; Status DC Warfarin Sodium (Coumadin) 4 mg ONCE@1600 ONCE PO Last administered on at 16:52; Start 01/26/16 at 16:00; Stop 01/26/16 at 16:01; Status DC Potassium Chloride (KCl 40 Meq/30 ml Liq) 80 meq ONCE ONCE PO Last administered on 01/27/16at 07:45; Start 01/27/16 at 07:45; Stop 01/27/16 at 08:10; Status DC Warfarin Sodium (Coumadin) 4 mg DAILY@16 PO Last administered on 02/02/16at 17: 22; Start 01/27/16 at 16:00; Stop 02/03/16 at 11:37; Status DC Acetic Acid (Acetic Acid 0.25% Irr Btl) 10 ml Q8HR IRRIGATION Last administered on 02/05/16at 06:00; Start 01/28/16 at 22:00; Stop 02/05/16 at 15:51 ; Status DC Warfarin Sodium 3 mg 3 mg DAILY@1600 PO Last administered on 02/11/16at 17:34; Start 02/03/16 at 16:00; Stop 02/12/16 at 12:45; Status DC Ceftriaxone Sodium/Sodium Chloride (Rocephin Inj/NS Inj) 100 ml @ 200 mls/hr Q24H IV Last administered on 02/10/16at 05:23; Start 02/05/16 at 06:30; Stop at 14:32; Status DC Acetic Acid (Acetic Acid 0.25% Irr Btl) 10 ml Q8HR IRRIGATION ; Start 02/05/16 at 16:00; Status Cancel Acetic Acid (Acetic Acid 0.25% Irr Btl) 10 ml Q8HR IRRIGATION Last administered on 09/17/16t 06:58; Start 02/05/16 at 16:00 Lactobacillus Acidophilus (Lactinex) 1 tab Q12HR PO Last administered on at 08:25; Start 02/10/16 at 21:00; Stop 02/12/16 at 16:05; Status DC Warfarin Sodium (Coumadin) 4 mg DAILY@1600 PO Last administered on 02/14/16at 15 :56; Start 02/12/16 at 16:00; Stop 02/15/16 at 10:17; Status DC Paroxetine HCl (Paxil Liq) 20 mg DAILY PEG Last administered on 02/25/16at 07:33 ; Start 02/16/16 at 09:00; Stop 02/25/16 at 10:36; Status DC Warfarin Sodium (Coumadin) 3 mg DAILY@1600 PO Last administered on 02/19/16at 16: 42; Start 02/15/16 at 16:00; Stop 02/20/16 at 08:50; Status DC Warfarin Sodium (Coumadin) 4 mg DAILY@16 PO Last administered on 02/21/16at 15:54 ; Start 02/20/16 at 16:00; Stop 02/22/16 at 08:46; Status DC Sennosides (Senna Liq) 8.8 mg DAILY TUBE Last administered on 05/26/16at 08:14 ; Start 02/21/16 at 09:00; Stop 05/27/16 at 11:51; Status DC Albuterol Sulfate (Albuterol Neb) 2.5 mg QID NEB INH Last administered on at 19:51; Start 02/21/16 at 20:00; Stop 02/25/16 at 20:00; Status DC Acetylcysteine (Mucomyst 10% Neb) 1 ml QID NEB NEB Last administered on at 16:32; Start 02/21/16 at 20:00; Stop 02/23/16 at 16:01; Status DC Warfarin Sodium (Coumadin) 3 mg DAILY@16 PO Last administered on 02/22/16at 15:59 ; Start 8/4/16 at 16:00; Stop 02/23/16 at 08:56; Status DC Warfarin Sodium (Coumadin) 3 mg DAILY@16 PO Last administered on 02/28/16at 16: 17; Start 02/24/16 at 16:00; Stop 02/29/16 at 10:04; Status DC Warfarin Sodium (Coumadin) 2 mg ONCE PO Last administered on 02/23/16at 16:22; Start 02/23/16 at 16:00; Stop 02/23/16 at 21:00; Status DC Paroxetine HCl (Paxil Liq) 20 mg DAILY@1900 PEG Last administered on 03/08/16at 18:11; Start 02/26/16 at 19:00; Stop 03/09/16 at 11:31; Status DC Warfarin Sodium (Coumadin) 3 mg DAILY@16 PO Last administered on 03/06/16at 16: 22; Start 03/01/16 at 16:00; Stop 03/09/16 at 10:30; Status DC Warfarin Sodium (Coumadin) 1 mg ONCE PO Last administered on 02/29/16at 17:28; Start 02/29/16 at 16:00; Stop 02/29/16 at 21:00; Status DC Insulin Detemir (Levemir Inj) 27 units HS SQ Last administered on 03/05/16at 20: 25; Start 03/05/16 at 21:00; Stop 03/06/16 at 10:03; Status DC Patient Medication Teaching (Coumadin Booklet) 1 ONCE ONCE XX Last administered on 03/05/16at 16:00; Start 03/05/16 at 16:00; Stop 03/05/16 at 16:01 ; Status DC Insulin Detemir (Levemir Inj) 30 units HS SQ Last administered on 03/21/16at 22: 32; Start 03/06/16 at 21:00; Stop 03/22/16 at 14:48; Status DC Trimethoprim/ Sulfamethoxazole (Bactrim 800-160 Mg/20 ml Liq) 20 ml Q12HR PO Last administered on 03/14/16at 08:01; Start 03/07/16 at 11:15; Stop 03/14/16 at 11:14; Status DC Lorazepam (Ativan Inj) 0.5 mg Q4H PRN IV PUSH seizures or agitation; Start at 23:00 Metronidazole (Flagyl) 500 mg Q8H PO Last administered on 03/14/16at 15:51; Start 03/08/16 at 17:00; Stop 03/14/16 at 23:00; Status DC Warfarin Sodium (Coumadin) 2 mg DAILY@16 PO Last administered on 03/09/16at 17: 20; Start 03/09/16 at 16:00; Stop 03/10/16 at 10:33; Status DC Paroxetine HCl (Paxil) 20 mg DAILY@1900 PEG Last administered on 03/11/16at 17: 55; Start 03/09/16 at 19:00; Stop 03/12/16 at 08:31; Status DC Warfarin Sodium 3 mg 3 mg DAILY@16 PO Last administered on 04/12/16at 15:28; Start 03/10/16 at 16:00; Stop 04/12/16 at 16:39; Status DC Pharmacy Profile Note 0 ml @ 0 mls/hr UNSCH OTHER ; Start 03/10/16 at 14:15; Stop 03/18/16 at 11:33; Status DC Vancomycin HCl/ Sodium Chloride (Vancomycin Inj/ NS 500 ml Inj) 530 ml @ 265 mls/hr Q12H IV Last administered on 03/17/16at 16:26; Start 03/10/16 at 16:00; Stop 03/17/16 at 23:00; Status DC Miscellaneous Information SPECIFIC LAB TO BE ... ONCE ONCE XX Last administered on 03/12/16at 04:45; Start 03/12/16 at 03:45; Stop 03/12/16 at 03:46 ; Status DC Metoprolol Tartrate (Lopressor) 75 mg Q8HR PO Last administered on 04/02/16at 13 :13; Start 03/10/16 at 22:00; Stop 04/02/16 at 17:31; Status DC Paroxetine HCl (Paxil Liq) 20 mg DAILY@1900 PEG Last administered on 09/16/16t 18:01; Start 03/12/16 at 19:00 Warfarin Sodium (Coumadin) 1 mg ONCE PO Last administered on 03/21/16at 16:24; Start 03/21/16 at 16:00; Stop 03/21/16 at 21:00; Status DC Warfarin Sodium (Coumadin) 1 mg ONCE PO Last administered on 03/22/16 17:46; Start 03/22/16 at 16:00; Stop 03/22/16 at 21:00; Status DC Insulin Detemir (Levemir Inj) 32 units HS SQ Last administered on 03/22/16at 20: 18; Start 03/22/16 at 21:00; Stop 03/23/16 at 13:35; Status DC Diltiazem HCl (Cardizem Cd) 120 mg DAILY PO Last administered on 04/14/16at 07: 43; Start 03/22/16 at 16:00; Stop 04/14/16 at 14:39; Status DC Hyoscyamine Sulfate (Levsin Liq) 0.125 mg Q4H PRN PEG INCREASED SECRETIONS Last administered on 04/10/16at 08:05; Start 03/22/16 at 15:15; Stop 04/11/16 at 10:24; Status DC Warfarin Sodium (Coumadin) 2 mg ONCE ONCE PO Last administered on 03/23/16at 17: 26; Start 03/23/16 at 16:00; Stop 03/23/16 at 16:01; Status DC Insulin Detemir (Levemir Inj) 34 units HS SQ Last administered on 03/23/16at 20: 01; Start 03/23/16 at 21:00; Stop 03/24/16 at 13:53; Status DC Insulin Detemir (Levemir Inj) 35 units HS SQ Last administered on 09/16/16t 23: 28; Start 03/24/16 at 21:00 Insulin Aspart (NovoLOG SUPPLEMENTAL SCALE) 1 ACHS SLIDING SCALE SQ Last administered on 04/16/16at 22:27; Start 03/24/16 at 16:00; Stop 04/19/16 at 17:19 ; Status DC Warfarin Sodium (Coumadin) 1 mg ONCE ONCE PO Last administered on 03/30/16at 16 :59; Start 03/30/16 at 16:00; Stop 03/30/16 at 16:01; Status DC Potassium Chloride (KCl 40 Meq/30 ml Liq) 40 meq ONCE ONCE NG Last administered on 03/31/16at 21:28; Start 03/31/16 at 18:30; Stop 03/31/16 at 18:31 ; Status DC Potassium Bicarb/ Potassium Chloride (K-Lyte Cl Eff) 25 meq ONCE ONCE PEG Last administered on 04/02/16at 12:01; Start 04/02/16 at 13:00; Stop 04/02/16 at 13:01; Status DC Metoprolol Tartrate (Lopressor) 75 mg BID PO Last administered on 05/28/16at 21: 03; Start 04/02/16 at 21:00; Stop 05/29/16 at 11:21; Status DC Potassium Bicarb/ Potassium Chloride (K-Lyte Cl Eff) 25 meq ONCE ONCE PEG Last administered on 04/04/16at 14:40; Start 04/04/16 at 12:30; Stop 04/04/16 at 12:31; Status DC Linezolid (Zyvox) 600 mg Q12HR PO Last administered on 04/16/16at 09:11; Start 04/05/16 at 15:00; Stop 04/16/16 at 12:00; Status DC Artificial Tears (Lacrilube Opht Oint) 1 applic Q12HR EACH EYE Last administered on 09/04/16 21:00; Start 04/10/16 at 11:00; Stop 09/05/16 at 14:38 ; Status DC Hyoscyamine Sulfate (Levsin) 0.25 mg Q4H PRN G-TUBE INCREASED SECRETIONS Last administered on 08/31/16 05:02; Start 04/11/16 at 10:30 Diatrizoate Meglum/ Diatrizoate Sod ( Gastroview Liq) 18 ml ONCE ONCE PO Last administered on 04/12/16at 16:45; Start 04/12/16 at 16:15; Stop 04/12/16 at 16:16; Status DC Warfarin Sodium (Coumadin) 3 mg DAILY@16 PO ; Start 04/13/16 at 16:00; Stop 05/27/16 at 11:51; Status DC Iohexol (Omnipaque 350 Inj) 98 ml STK-MED ONCE IV Last administered on at 21:01; Start 04/12/16 at 21:01; Stop 04/12/16 at 21:02; Status DC Diltiazem HCl (Cardizem Cd) 180 mg DAILY PO ; Start 04/15/16 at 09:00; Stop at 08:50; Status DC Ondansetron HCl (Zofran Inj) 4 mg Q6HR PRN IV PUSH nausea/vomiting Last administered on 08/10/16 10:16; Start 04/14/16 at 19:45 Diltiazem HCl 60 mg 60 mg QID PO Last administered on 04/25/16 17:26; Start at 13:00; Stop 04/25/16 at 19:06; Status DC Sodium Chloride 500 ml @ 500 mls/hr BOLUS ONCE IV Last administered on at 09:15; Start 04/15/16 at 09:15; Stop 04/15/16 at 10:14; Status DC Potassium Chloride/Dextrose/ Sodium Chloride (KCl Inj/D5W-NS 1000 ml Inj) 1,005 ml @ 100 mls/hr Q10H3M IV Last administered on 04/15/16at 21:03; Start at 11:00; Stop 04/16/16 at 09:09; Status DC Enoxaparin Sodium (Lovenox Inj) 90 mg Q12H SQ Last administered on 04/16/16at 21 :12; Start 04/16/16 at 09:00; Stop 04/17/16 at 10:37; Status DC Water 200 ml 200 ml Q4HR TUBE Last administered on 09/17/16 12:05; Start 04/16 at 12:00 Sodium Chloride 1,000 ml @ 84 mls/hr [id number] IV Last administered on at 08:38; Start 04/16/16 at 10:00; Stop 04/20/16 at 12:04; Status DC Ceftriaxone Sodium/Sodium Chloride (Rocephin Inj/NS Inj) 100 ml @ 200 mls/hr Q24H IV Last administered on 05/02/16at 13:19; Start 04/16/16 at 12:00; Stop 05/03/16 at 12:06; Status DC Acetaminophen/ Hydrocodone Bitart (Smoot 5-325 Mg) 1 tab Q6HR PEG Last administered on 09/17/16 06:42; Start 04/18/16 at 18:00; Stop 09/17/16 at 09:17 ; Status DC Lactulose (Lactulose Liq) 30 ml NOW ONCE PEG Last administered on 04/19/16at 17 :21; Start 04/19/16 at 17:30; Stop 04/19/16 at 17:31; Status DC Lactulose (Lactulose Liq) 30 ml DAILY PEG Last administered on 05/26/16at 08:14 ; Start 04/20/16 at 09:00; Stop 05/27/16 at 11:39; Status DC Potassium Bicarb/ Potassium Chloride (K-Lyte Cl Eff) 50 meq ONCE ONCE PO Last administered on 04/20/16at 05:52; Start 04/20/16 at 05:45; Stop 04/20/16 at 05:46; Status DC Furosemide (Lasix Inj) 20 mg ONCE ONCE IV PUSH Last administered on 04/20/16at 17:35; Start 04/20/16 at 12:00; Stop 04/20/16 at 12:06; Status DC Insulin Aspart (NovoLOG SUPPLEMENTAL SCALE) 1 ACHS SLIDING SCALE SQ Last administered on 06/02/16at 12:10; Start 04/20/16 at 16:00; Stop 06/02/16 at 21: 44; Status DC Dextrose (D50w (Vial) Inj) 25 ml UNSCH PRN IV HYPOGLYCEMIA-SEE COMMENTS; Start 04/20/16 at 12:00 Glucagon (Glucagon Inj) 1 mg UNSCH PRN IM/SQ HYPOGLYCEMIA-SEE COMMENTS; Start 04/20/16 at 12:00 Lactobacillus Acidophilus (Lactinex) 1 tab Q12HR PEG Last administered on 06/06at 21:34; Start 04/22/16 at 09:00; Stop 06/07/16 at 09:32; Status DC Furosemide (Lasix Inj) 20 mg Q12H IV PUSH Last administered on 04/24/16at 08:52 ; Start 04/22/16 at 09:00; Stop 04/24/16 at 09:25; Status DC Potassium Bicarb/ Potassium Chloride (K-Lyte Cl Eff) 25 meq Q12HR TUBE Last administered on 05/27/16at 08:17; Start 04/22/16 at 09:00; Stop 05/27/16 at 11:51 ; Status DC Albumin Human (Albumin 25% Inj) 12.5 gm Q12H IV Last administered on 04/24/16at 08:46; Start 04/22/16 at 09:00; Stop 04/24/16 at 09:25; Status DC Furosemide (Lasix Inj) 20 mg DAILY IV PUSH Last administered on 05/08/16at 09: 01; Start 04/25/16 at 09:00; Stop 05/08/16 at 11:06; Status DC Albumin Human (Albumin 25% Inj) 12.5 gm DAILY IV Last administered on at 09:02; Start 04/25/16 at 10:00; Stop 05/08/16 at 11:06; Status DC Furosemide (Lasix Inj) 40 mg ONCE ONCE IV PUSH Last administered on 04/25/16at 18:15; Start 04/25/16 at 18:15; Stop 04/25/16 at 18:16; Status DC Albuterol/ Ipratropium (Duoneb Neb) 1 ampule Q6HR NEB NEB Last administered on 04/27/16at 15:52; Start 04/25/16 at 18:30; Stop 04/27/16 at 19:45; Status DC Ipratropium [place] (Atrovent Neb) 0.5 mg Q6HR NEB NEB Last administered on at 16:51; Start 04/25/16 at 22:00; Stop 04/27/16 at 16:44; Status DC Levalbuterol HCl (Xopenex Neb) 0.31 mg Q4HR NEB NEB Last administered on at 23:48; Start 04/25/16 at 20:00; Stop 04/27/16 at 16:43; Status DC Levalbuterol HCl (Xopenex Neb) 0.31 mg Q2HR NEB PRN NEB SHORTNESS OF BREATH; Start 04/25/16 at 18:45; Stop 04/28/16 at 10:50; Status DC Diltiazem HCl (Cardizem) 90 mg QID PEG Last administered on 07/17/16at 09:27; Start 04/25/16 at 21:00; Stop 07/17/16 at 17:52; Status DC Diltiazem HCl (Cardizem) 30 mg NOW ONCE PEG Last administered on 04/25/16at 21: 36; Start 04/25/16 at 19:15; Stop 04/25/16 at 19:16; Status DC Levalbuterol HCl (Xopenex Neb) 0.31 mg Q8HR NEB NEB ; Start 04/28/16 at 00:00; Stop 04/28/16 at 10:50; Status DC Levalbuterol HCl (Xopenex Neb) 0.63 mg Q4HR NEB PRN NEB SHORTNESS OF BREATH Last administered on 05/04/16at 15:26; Start 04/28/16 at 11:00; Stop 05/04/16 at 00:51; Status DC Levalbuterol HCl (Xopenex Neb) 0.63 mg Q8HR NEB NEB Last administered on 05/04at 00:07; Start 04/28/16 at 16:00; Stop 05/04/16 at 00:50; Status DC Polyethylene Glycol/ Electrolytes 4000 ml 4,000 ml ONCE ONCE PO Last administered on 05/05/16at 08:10; Start 05/05/16 at 08:45; Stop 05/05/16 at 08 :46; Status DC Cefazolin Sodium/ Dextrose 50 ml @ 100 mls/hr ONCE ONCE IV ; Start 05/06/16 at 14:00; Stop 05/06/16 at 14:29; Status DC Metronidazole 100 ml @ 100 mls/hr ONCE ONCE IV Last administered on at 14:00; Start 05/06/16 at 14:00; Stop 05/06/16 at 14:59; Status DC Ceftriaxone Sodium/Sodium Chloride (Rocephin Inj/NS Inj) 100 ml @ 200 mls/hr Q24H IV Last administered on 06/09/16at 12:36; Start 05/03/16 at 12:00; Stop 06/10/16 at 12:48; Status DC Levalbuterol HCl (Xopenex Neb) 0.63 mg Q8HR NEB NEB Last administered on 05/05at 08:00; Start 05/04/16 at 00:49; Stop 05/05/16 at 08:07; Status DC Levalbuterol HCl (Xopenex Neb) 0.63 mg Q4HR NEB PRN NEB SHORTNESS OF BREATH Last administered on 08/02/16t 13:48; Start 05/05/16 at 12:00 Levalbuterol HCl (Xopenex Neb) 0.63 mg Q8HR NEB NEB Last administered on 05/08at 23:56; Start 05/05/16 at 08:15; Stop 05/09/16 at 08:15; Status DC Potassium Bicarb/ Potassium Chloride (K-Lyte Cl Eff) 25 meq DAILY TUBE Last administered on 09/17/16 08:30; Start 05/28/16 at 09:00 Aspirin (Aspirin) 325 mg DAILY TUBE Last administered on 09/17/16 08:39; Start 05/27/16 at 11:40 Docusate Sodium (Colace Liq) 100 mg DAILY PRN PO constipation Last administered on 08/16/16 21:09; Start 05/27/16 at 11:45; Stop 08/31/16 at 09:00 ; Status DC Metoprolol Tartrate (Lopressor) 50 mg BID PO Last administered on 08/23/16 09: 03; Start 05/29/16 at 21:00; Stop 08/23/16 at 15:33; Status DC Acetaminophen/ Hydrocodone Bitart (Smoot 5-325 Mg) 1 tab Q6H PRN TUBE BREAKTHROUGH PAIN Last administered on 08/02/16 15:11; Start 06/03/16 at 03:00 Insulin Aspart (NovoLOG SUPPLEMENTAL SCALE) 1 ACHS SLIDING SCALE SQ Last administered on 06/06/16at 21:35; Start 06/03/16 at 07:00; Stop 06/07/16 at 12 :24; Status DC Lactobacillus Acidophilus (Lactinex) 1 tab TID PEG Last administered on 08:41; Start 06/07/16 at 13:00 Insulin Aspart 1 1 AC BREAKFAST SQ Last administered on 09/06/16 07:00; Start 06/08/16 at 07:00 Ceftriaxone Sodium/Sodium Chloride (Rocephin Inj/NS Inj) 100 ml @ 200 mls/hr Q24H IV Last administered on 07/28/16 12:19; Start 06/10/16 at 12:00; Stop 07/29/16 at 13:30; Status DC Heparin Sodium (Porcine) (Heparin Inj) 5,000 units Q12HR SQ Last administered on 06/11/16at 00:58; Start 06/10/16 at 14:15; Stop 06/11/16 at 06:21; Status DC Heparin Sodium (Porcine) (Heparin Inj) 5,000 units Q8HR SQ Last administered on 09/17/16 06:42; Start 06/11/16 at 14:00 Diltiazem HCl (Cardizem) 30 mg QID PEG Last administered on 08/16/16 08:31; Start 07/17/16 at 18:00; Stop 08/16/16 at 12:06; Status DC Bacitracin 1 applic 1 applic BID TOP Last administered on 09/16/16 23:40; Start 07/20/16 at 10:00 Lactated Ringer's 1,000 ml @ 30 mls/hr Q24H IV ; Start 07/21/16 at 17:45; Stop 08/14/16 at 12:08; Status DC Sodium Chloride (NS 500 ml Inj) 500 ml @ 30 mls/hr [id number] IV ; Start 07/21/16 at 17:45; Stop 07/22/16 at 17:44; Status DC Insulin Human Regular (NovoLIN R INJ) See Protocol Table ... UNSCH X1 PRN SQ SEE PROTOCOL; Start 07/21/16 at 17:45; Stop 07/22/16 at 17:44; Status DC Metoprolol Tartrate (Lopressor) 25 mg UNSCH X1 PRN PO SEE LABEL COMMENTS; Start 07/21/16 at 17:45; Stop 07/22/16 at 17:44; Status DC Lidocaine/ Epinephrine (Xylocaine-Epi 1%-1:100,000 Inj) 40 ml STK-MED ONCE .ROUTE Last administered on 07/22/16 10:56; Start 07/22/16 at 10:04; Stop at 10:05; Status DC Ketamine HCl (Ketalar Inj) 500 mg STK-MED ONCE .ROUTE ; Start 07/22/16 at 10:50; Stop 07/22/16 at 10:51; Status DC Propofol 600 mg 600 mg STK-MED ONCE IV ; Start 07/22/16 at 12:00; Stop 07/23/16 at 14:36; Status DC Dextrose 1,000 ml @ 40 mls/hr Q24H ONCE IV Last administered on 07/28/16 14:33 ; Start 07/28/16 at 14:00; Stop 07/29/16 at 13:59; Status DC Ampicillin Sodium/ Sulbactam Sodium/ Sodium Chloride (Unasyn Inj/NS Inj) 100 ml @ 200 mls/hr Q6H IV Last administered on 08/01/16 12:30; Start 07/29/16 at 14: 00; Stop 08/01/16 at 14:13; Status DC Ondansetron HCl 4 mg 4 mg ONCE ONCE IV PUSH Last administered on 07/30/16 02: 46; Start 07/30/16 at 00:30; Stop 07/30/16 at 00:33; Status DC Lactated Ringer's 1,000 ml @ 30 mls/hr Q24H IV ; Start 07/30/16 at 06:00; Stop 08/14/16 at 12:09; Status DC Sodium Chloride (NS 500 ml Inj) 500 ml @ 30 mls/hr [id number] IV ; Start 07/30/16 at 06:00; Stop 07/31/16 at 05:59; Status DC Pantoprazole Sodium (Protonix Inj) 40 mg Q12H IV PUSH Last administered on 09/17 10:38; Start 07/30/16 at 10:15 Propofol 200 mg 200 mg STK-MED ONCE IV ; Start 07/30/16 at 09:41; Stop 07/30/16 at 10:19; Status DC Piperacillin Sod/ Tazobactam Sod (Zosyn 4.5 Gm Premix) 100 ml @ 200 mls/hr Q6H IV Last administered on 08/07/16 09:37; Start 08/01/16 at 16:00; Stop at 16:10; Status DC Linezolid (Zyvox) 600 mg Q12HR PO Last administered on 08/22/16 09:10; Start at 21:00; Stop 08/22/16 at 15:55; Status DC Sodium Chloride ([place]) 1 spray BID NASAL Last administered on 08:41; Start 08/01/16 at 21:00 Metronidazole 500 mg 500 mg Q8H PO Last administered on 08/08/16 08:28; Start 08/07/16 at 16:00; Stop 08/08/16 at 16:10; Status DC Sodium Chloride (NS 1000 ml Inj) 1,000 ml @ 42 mls/hr [id number] IV Last administered on 08/14/16 12:44; Start 08/14/16 at 12:00; Stop 08/15/16 at 10:56 ; Status DC Fentanyl Citrate (fentaNYL INJ) 250 mcg STK-MED ONCE .ROUTE Last administered on 08/14/16 15:36; Start 08/14/16 at 15:36; Stop 08/14/16 at 15:37; Status DC Iohexol (Omnipaque 350 Inj) 30 ml STK-MED ONCE G-TUBE Last administered on 08/14 15:45; Start 08/14/16 at 15:52; Stop 08/14/16 at 15:53; Status DC Diltiazem HCl (Cardizem) 30 mg QID PEG Last administered on 09/17/16 10:39; Start 08/16/16 at 13:00 Polyethylene Glycol (Miralax) 17 gm ONCE ONCE PEG Last administered on 11:32; Start 08/17/16 at 12:00; Stop 08/17/16 at 12:01; Status DC Amoxicillin 500 mg 500 mg Q8HR PO Last administered on 09/17/16 06:42; Start 08/22/16 at 22:00 Cefepime HCl/ Sodium Chloride (Maxipime Inj/NS Inj) 100 ml @ 200 mls/hr Q8H IV Last administered on 09/03/16 10:46; Start 08/23/16 at 16:00; Stop 09/03/16 at 15:02; Status DC Metoprolol Tartrate (Lopressor) 75 mg BID PO Last administered on 09/13/16 08: 42; Start 08/23/16 at 21:00; Stop 09/13/16 at 13:09; Status DC Docusate Sodium (Colace Liq) 100 mg BID PO Last administered on 09/17/16 08:30 ; Start 08/30/16 at 21:00 Sennosides (Senokot) 17.2 mg DAILY PO Last administered on 09/17/16 08:30; Start 08/30/16 at 14:00 Lactulose (Lactulose Liq) 30 ml DAILY PO Last administered on 09/17/16 08:30; Start 09/02/16 at 15:30 Artificial Tears (Tears Naturale Opth Soln) 1 drop BID EACH EYE Last administered on 09/17/16 08:41; Start 09/05/16 at 21:00 Midazolam HCl (Versed Inj) 2 mg STK-MED ONCE .ROUTE Last administered on 11:37; Start 09/09/16 at 11:37; Stop 09/09/16 at 11:38; Status DC Fentanyl Citrate (fentaNYL INJ) 100 mcg STK-MED ONCE .ROUTE Last administered on 09/09/16 11:38; Start 09/09/16 at 11:38; Stop 09/09/16 at 11:39; Status DC Iohexol (Omnipaque 350 Inj) 20 ml STK-MED ONCE G-TUBE Last administered on 09/09 11:50; Start 09/09/16 at 11:50; Stop 09/09/16 at 12:15; Status DC Metoprolol Tartrate (Lopressor) 50 mg BID PO Last administered on 09/17/16 10: 39; Start 09/13/16 at 21:00 Acetaminophen/ Hydrocodone Bitart (Smoot 5-325 Mg) 1 tab Q6H PEG ; Start at 11:00 Date of Insertion: Aug 03, 2016 A/P Problem List: (1) CVA (cerebral vascular accident) ICD Code: I63.9 Status: Acute (2) A-fib ICD Code: I48.91 Status: Chronic (3) DM (diabetes mellitus) ICD Code: E11.9 Status: Chronic Assessment and Plan 60-year-old male with: 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 Continue Keppra for seizure prophylaxis. PT/OT signed off as patient is unable to participate. Chronic respiratory failure -Secondary to CVA. Status post tracheostomy. Continue pulmonary toilet and bronchodilators as needed. Continue trach care, suctioning. Levsin as needed. On 28% FiO2 09/06. -pulm is ff. Atrial fibrillation -Continue rate control with Cardizem and metoprolol. Echocardiogram in November 2015 shows preserved ejection fraction. Coumadin discontinued secondary to bleeding. Continue aspirin and prophylactic heparin dose. HR well controlled 09/06. History of non-Hodgkin's lymphoma - Status post brain biopsy on December 13 by neurosurgery. Pathology consistent with acute infarct without evidence of lymphoma. Oncology signed off. Diabetes mellitus -Hemoglobin A1c is 7. Continue Levemir. Monitor Accu-Cheks and cover with sliding scale insulin. Glucose well controlled 09/06. Decubitus ulcer stage IV -Continue wound care, twice-daily dressing changes. Wound care recommendations. Continue pressure relief measures including turning and positioning. Patient's family has declined a diverting colostomy. Wound culture growing Klebsiella. on Augmentin. Status post wide excision of sacral skin and biopsy of the cavity lining with debridement on 07/22/16. Gastric ulcer, reflux esophagitis - EGD on 07/30/16 showed gastric ulcers. Appreciate GI recommendations. Continue PPI. H&H stable. UTI pseudomonas aeruginosa treated with abx - Repeat Ucx 08/28/16 negative. Constipation: -on lactulose. FEN: Continue Nepro tube feeds. Follow up with dietary recommendations. Continue free water flushes. Supplement potassium. DVT prophylaxis: SCDs/ subq heparin. dc planning to SNF-no funding- SSI pending. Problem Qualifiers (1) DM (diabetes mellitus): Qualified Code: E11.9 - Type 2 diabetes mellitus without complications Patsy Wilkes MD Sep 17, 2016 14:26
[2016-09-17] MEDS: NYSTATIN 100,000 U/GM PWD 15 GM BTL TOPICAL SCH ×2 (15:06→23:35)
[2016-09-17] MEDS: BACITRACIN TOP OINT 15 GM TUBE TOP SCH ×2 (15:06→23:36)
[2016-09-17] MEDS: PARoxetine HCL SUSP 20 MG/10 ML UDC PEG SCH (18:47)
[2016-09-17] MEDS: INSULIN DETEMIR 100 UNITS/ML VIAL SQ SCH (23:37)
[2016-09-17] MEDS: ACETAMINOPHEN/HYDROcodone 325 MG/5 MG TAB PO SCH (23:43)
[2016-09-18] VITALS (7 sets, daily range): BP systolic 108–140; BP diastolic 63–83; PULSE 75–84; RESP 18–20; TEMP 96–97.4; O2SAT 93–100
[2016-09-18] MEDS: FREE WATER TUBE SCH ×5 (04:00→20:00)
[2016-09-18] MEDS: AMOXICILLIN (TRIHYDRATE) 500 MG CAP PO SCH ×3 (06:00→22:57)
[2016-09-18] MEDS: HEPARIN SODIUM - SQ 10,000 UNITS/ML VIAL SQ SCH ×3 (06:35→22:57)
[2016-09-18] MEDS: ACETIC ACID 0.25% SOLN 1000 ML IRR BTL IRRIGATION SCH ×3 (06:44→22:00)
[2016-09-18] MEDS: INSULIN ASPART SUPPLEMENTAL SCALE SQ SCH (06:44)
[2016-09-18] MEDS: LACTULOSE SYRUP 20 GM/30 ML CUP PO SCH (07:46)
[2016-09-18] MEDS: SODIUM CHLORIDE 0.65% NASAL SPRAY 45 ML BTL NASAL SCH ×2 (07:46→21:00)
[2016-09-18] MEDS: DOCUSATE SODIUM 100 MG/10 ML UDC PO SCH ×2 (07:46→22:56)
[2016-09-18] MEDS: ARTIFICIAL TEARS OPTH SOLN 15 ML BTL EACH EYE SCH ×2 (07:46→21:00)
[2016-09-18] MEDS: POTASSIUM CHLORIDE 25 MEQ EFFERVESCENT TAB TUBE SCH (07:46)
[2016-09-18] MEDS: levETIRAcetam 500 MG/5 ML UDC TUBE SCH ×2 (07:46→22:56)
[2016-09-18] MEDS: METOPROLOL TARTRATE 50 MG TAB PO SCH ×2 (07:46→22:57)
[2016-09-18] MEDS: SENNOSIDES 8.6 MG TAB PO SCH (07:47)
[2016-09-18] MEDS: LACTOBACILLUS ACIDOPHILUS TAB PEG SCH ×3 (07:47→18:09)
[2016-09-18] MEDS: BACITRACIN TOP OINT 15 GM TUBE TOP SCH ×2 (07:47→21:00)
[2016-09-18] MEDS: ASPIRIN 325 MG TAB TUBE SCH (07:47)
[2016-09-18] MEDS: DILTIAZEM HCL 30 MG TAB PEG SCH ×4 (07:47→22:57)
[2016-09-18] MEDS: NYSTATIN 100,000 U/GM PWD 15 GM BTL TOPICAL SCH ×2 (07:47→21:00)
[2016-09-18] MEDS: PANTOPRAZOLE SODIUM 40 MG VIAL IV PUSH SCH ×2 (11:03→22:58)
--- NOTE | 2016-09-18 13:19 | HHI.PR ---
Subjective Remarks f/u for CVA patient continues to be nonverbal. patient is at the bedside. She has no complaint and stated that he is doing much better off the pain medication. no acute events. Objective Vitals Vital Signs Date Time Temp Pulse Resp B/P Pulse Ox O2 Delivery O2 Flow Rate FiO2 09/18/16 12:00 96.0 79 20 109/63 99 09/18/16 09:05 98 T-piece 6.00 28 09/18/16 09:05 98 T-piece 6.00 28 09/18/16 08:17 96.4 83 20 108/71 96 09/18/16 08:06 98 T-Piece 6.00 28 Humidified 09/18/16 04:00 96.6 84 18 126/68 98 09/18/16 01:20 T-Piece 6.00 28 Humidified 09/18/16 00:07 96.5 84 18 129/71 97 09/17/16 20:00 96.0 82 18 115/60 98 09/17/16 16:00 97.1 79 20 101/61 100 09/17/16 14:16 98 T-Piece 6.00 28 Humidified I/O 09/17/16 09/17/16 09/17/16 09/18/16 09/18/16 09/18/16 07:00 15:00 23:00 07:00 15:00 23:00 Output Total 550 ml 360 ml 750 ml 650 ml Balance -550 ml -360 ml -750 ml -650 ml Output Urine Total 550 ml 360 ml 750 ml 650 ml Objective Remarks Gen NAD CV RRR. no r//g Resp trach in place CTA B/L abd soft NDNT NEURO patient is awake and tracking but does not follow commands. Procedures 01/02/16 PEG placement 01/02/16 tracheostomy 07/22/2016 Wide excision of sacral skin wound, biopsy of the cavity lining and debridement. PEG tube replacement 07/29/16 Medications and IVs Current Medications IV Flush (NS Flush) 2 ml UNSCH PRN IVF FLUSH AFTER USING IV ACCESS Last administered on 09/16/16t 23:29; Start 12/21/15 at 06:00 Ondansetron HCl (Zofran Inj) 4 mg STK-MED ONCE .ROUTE ; Start 12/21/15 at 06:22; Stop 12/21/15 at 06:23; Status DC Ondansetron HCl (Zofran Inj) 4 mg ONCE ONCE IV PUSH Last administered on at 06:43; Start 12/21/15 at 06:30; Stop 12/21/15 at 06:31; Status DC Diltiazem HCl 20 mg 20 mg ONCE ONCE IV Last administered on 12/21/15at 06:42; Start 12/21/15 at 06:30; Stop 12/21/15 at 06:31; Status DC Diltiazem HCl/ Sodium Chloride (Cardizem Inj/NS Inj) 125 ml @ 0 mls/hr TITRATE IV Last administered on 12/21/15at 06:47; Start 12/21/15 at 06:30; Stop 12/21/15 at 13:00; Status DC Acetaminophen (Tylenol) 650 mg ONCE ONCE PO ; Start 12/21/15 at 06:45; Stop 12/20 at 06:46; Status DC Lorazepam (Ativan Inj) 1 mg ONCE ONCE IV PUSH Last administered on 12/21/15at 07 :22; Start 12/21/15 at 07:15; Stop 12/21/15 at 07:16; Status DC Etomidate (Amidate Inj) 40 mg STK-MED ONCE .ROUTE Last administered on at 08:17; Start 12/21/15 at 07:37; Stop 12/21/15 at 07:38; Status DC Succinylcholine Chloride 200 mg 200 mg STK-MED ONCE .ROUTE Last administered on 12/21/15at 08:18; Start 12/21/15 at 07:37; Stop 12/21/15 at 07:38; Status DC Propofol (Diprivan 1000 Mg/100ml Inj) 100 ml @ As Directed STK-MED ONCE .ROUTE Last administered on 12/21/15at 08:19; Start 12/21/15 at 07:46; Stop 12/21/15 at 07:47; Status DC Propofol (Diprivan 1000 Mg/100ml Inj) search Sets for Drip. NOW PRN IV SEDATION Last administered on 12/22/15at 06:25; Start 12/21/15 at 08:30; Stop 12/28 at 15:43; Status DC Gadodiamide (Omniscan Pf Inj) 18 ml STK-MED ONCE IV Last administered on at 10:11; Start 12/21/15 at 10:11; Stop 12/21/15 at 10:12; Status DC Pantoprazole Sodium (Protonix Inj) 40 mg DAILY IV Last administered on at 07:39; Start 12/21/15 at 13:00; Stop 01/03/16 at 10:10; Status DC Albuterol/ Ipratropium (Duoneb Neb) 1 ampule Q6HR NEB INH Last administered on 12/25/15at 07:51; Start 12/21/15 at 13:00; Stop 12/25/15 at 13:00; Status DC Miscellaneous Information 1 [id number] Last administered on 12/21/15at 13:00; Start 12/21/15 at 13:00; Stop 01/12/16 at 11:47; Status DC Chlorhexidine Gluconate (Chlorhexidine 2% Cloth) 3 pack Taper DAILY@04 TOP Last administered on 01/11/16at 04:10; Start 12/22/15 at 04:00; Stop 01/12/16 at 11:47; Status DC Chlorhexidine Gluconate 3 pack 3 pack UNSCH PRN TOP HYGIENIC CARE; Start at 13:00; Stop 01/12/16 at 11:47; Status DC Sodium Chloride (NS 1000 ml Inj) 1,000 ml @ 75 mls/hr [id number] IV Last administered on 12/22/15at 17:00; Start 12/21/15 at 13:00; Stop 12/22/15 at 19:01; Status DC Dextrose (D50w (Vial) Inj) 25 ml UNSCH PRN IV PUSH HYPOGLYCEMIA-SEE COMMENTS; Start 12/21/15 at 13:00; Stop 04/19/16 at 17:19; Status DC Glucagon (Glucagon Inj) 1 mg UNSCH PRN OTHER HYPOGLYCEMIA-SEE COMMENTS; Start 12/21/15 at 13:00; Stop 04/19/16 at 17:19; Status DC Insulin Human Regular (NovoLIN R SUPPLEMENTAL SCALE) 1 Q6H SQ Last administered on 01/04/16at 06:31; Start 12/21/15 at 13:00; Stop 01/04/16 at 10:05 ; Status DC Levetriacetam (Keppra) 500 mg Q12HR PO Last administered on 12/27/15at 09:00; Start 12/21/15 at 13:45; Stop 12/27/15 at 09:44; Status DC Heparin Sodium (Porcine) (Heparin Inj) 5,000 units BID SQ Last administered on 12/22/15at 20:52; Start 12/21/15 at 21:00; Stop 12/23/15 at 08:32; Status DC Warfarin Sodium (Coumadin) 7.5 mg ONCE ONCE PO Last administered on 12/21/15at 21:43; Start 12/21/15 at 21:00; Stop 12/21/15 at 21:01; Status DC Warfarin Sodium (Coumadin) 5 mg DAILY@16 PO Last administered on 12/23/15at 16:00 ; Start 12/22/15 at 16:00; Stop 12/26/15 at 09:29; Status DC Patient Medication Teaching (Coumadin Booklet) 1 ONCE ONCE XX Last administered on 12/21/15at 20:15; Start 12/21/15 at 20:15; Stop 12/21/15 at 20:16; Status DC Chlorhexidine Gluconate (Peridex 0.12% Liq) 15 ml BID@08,20 MT Last administered on 01/12/16at 08:00; Start 12/22/15 at 20:00; Stop 01/12/16 at 11:47 ; Status DC Gadodiamide 20 ml 20 ml STK-MED ONCE IV Last administered on 12/22/15at 09:55; Start 12/22/15 at 09:55; Stop 12/22/15 at 09:56; Status DC Pharmacy Profile Note ml @ 0 mls/hr UNSCH OTHER ; Start 12/22/15 at 11:00; Stop 12/22/15 at 19:43; Status DC Sodium Chloride 1,000 ml @ 50 mls/hr Q20H IV Last administered on 12/24/15at 20: 02; Start 12/22/15 at 18:44; Stop 12/25/15 at 11:52; Status DC Pharmacy Profile Note (Coumadin Consult Pharmacy) 0 ml @ 0 mls/hr UNSCH OTHER ; Start 12/22/15 at 19:45; Stop 01/04/16 at 12:25; Status DC Acetaminophen 650 mg 650 mg Q6H PRN PO TEMP > 100 Last administered on at 13:24; Start 12/23/15 at 02:45; Stop 12/30/15 at 15:04; Status DC Potassium Chloride 100 ml @ 50 mls/hr Q2H PRN IV For Potassium 2.8 - 3.2 mEq/L ; Start 12/23/15 at 08:30; Stop 01/09/16 at 11:14; Status DC Potassium Chloride (KCl 20 Meq Premix Inj) 100 ml @ 50 mls/hr Q2H PRN IV For Potassium 2.8 - 3.2 mEq/L; Start 12/23/15 at 08:30; Stop 01/09/16 at 11:14; Status DC Potassium Chloride 40 meq 40 meq UNSCH PRN PO/TUBE For Potassium 3.3 - 3.5 mEq/ L; Start 12/23/15 at 08:30; Stop 01/09/16 at 11:14; Status DC Potassium Chloride 100 ml @ 25 mls/hr UNSCH PRN IV For Potassium 3.3 - 3.5 mEq /L; Start 12/23/15 at 08:30; Stop 01/09/16 at 11:14; Status DC Potassium Chloride 100 ml @ 50 mls/hr Q2H PRN IV For Potassium 3.3 - 3.5 mEq/L ; Start 12/23/15 at 08:30; Stop 01/09/16 at 11:14; Status DC Magnesium Sulfate/ Sodium Chloride (Magnesium Sulfate Inj/NS Inj) 100 ml @ 50 mls/hr UNSCH PRN IV For Magnesium 0.9 - 1.1 mg/dL; Start 12/23/15 at 08:30; Stop 01/09/16 at 11:14; Status DC Magnesium Oxide 800 mg 800 mg UNSCH PRN PO For Magnesium 1.2 - 1.6 mg/dL; Start 12/23/15 at 08:30; Stop 01/09/16 at 11:14; Status DC Magnesium Sulfate/ Sodium Chloride (Magnesium Sulfate Inj/NS Inj) 100 ml @ 50 mls/hr UNSCH PRN IV For Magnesium 1.2 - 1.6 mg/dL; Start 12/23/15 at 08:30; Stop 01/09/16 at 11:14; Status DC Potassium Phosphate 2000 mg 2,000 mg Q4H PRN PO For Phosphorus < 2.5 mg/dL; Start 12/23/15 at 08:30; Stop 01/09/16 at 11:14; Status DC Sodium Phosphate/ Sodium Chloride (Sodium Phosphate Inj/NS 250 ml Inj) 250 ml @ 42 mls/hr UNSCH PRN IV For Phosphorus < 2.5 mg/dL; Start 12/23/15 at 08:30; Stop 01/09/16 at 11:14; Status DC Potassium Chloride (KCl 40 Meq/30 ml Liq) 40 meq UNSCH PRN PO/TUBE SEE LABEL COMMENTS; Start 12/23/15 at 08:30; Stop 01/09/16 at 11:14; Status DC Potassium Phosphate 2000 mg 2,000 mg UNSCH PRN PO/TUBE SEE LABEL COMMENTS; Start 12/23/15 at 08:30; Stop 01/09/16 at 11:14; Status DC Potassium Phosphate 30 mmol/ Sodium Chloride 260 ml @ 42 mls/hr UNSCH PRN IV SEE LABEL COMMENTS; Start 12/23/15 at 08:30; Stop 01/09/16 at 11:14; Status DC Sodium Chloride 1,000 ml @ 75 mls/hr [id number] IV ; Start 12/23/15 at 08:30; Stop 12/23/15 at 08:30; Status DC Piperacillin Sod/ Tazobactam Sod 50 ml @ 100 mls/hr Q6H IV Last administered on 12/30/15at 10:02; Start 12/23/15 at 10:00; Stop 12/30/15 at 14:50; Status DC Vancomycin HCl/ Sodium Chloride (Vancomycin Inj/ NS 250 ml Inj) 250 ml @ 250 mls/hr Q12H IV Last administered on 12/29/15at 09:01; Start 12/24/15 at 08:45; Stop 12/29/15 at 15:33; Status DC Warfarin Sodium (Coumadin) 4 mg DAILY@16 PO Last administered on 12/28/15at 16:00 ; Start 12/26/15 at 16:00; Stop 01/04/16 at 12:25; Status DC Levetriacetam (Keppra Liq) 500 mg Q12HR TUBE Last administered on 09/18/16t 07: 46; Start 12/27/15 at 21:00 Docusate Sodium (Colace Liq) 100 mg Q12HR TUBE Last administered on 01/15/16at 09:01; Start 12/27/15 at 21:00; Stop 04/16/16 at 08:50; Status DC Sennosides (Senna Liq) 8.8 mg DAILY TUBE Last administered on 01/15/16at 09:01 ; Start 12/27/15 at 17:00; Stop 01/15/16 at 20:37; Status DC Bisacodyl (Dulcolax Supp) 10 mg ONCE ONCE RECTAL ; Start 12/27/15 at 16:15; Stop 12/27/15 at 16:15; Status DC Albuterol/ Ipratropium (Duoneb Neb) 1 ampule Q4HR NEB PRN NEB RESPIRATORY DISTRESS Last administered on 12/29/15at 12:17; Start 12/27/15 at 22:00; Stop at 08:16; Status DC Bisacodyl (Dulcolax Supp) 10 mg ONCE ONCE RECTAL ; Start 12/28/15 at 12:00; Stop 12/28/15 at 12:01; Status DC Sodium Chloride (Sodium Chloride) 1 gm BID TUBE Last administered on 12/29/15at 09:02; Start 12/28/15 at 21:00; Stop 12/29/15 at 15:43; Status DC Lactulose (Lactulose Liq) 30 ml DAILY TUBE Last administered on 12/29/15at 09:02 ; Start 12/28/15 at 20:30; Stop 12/29/15 at 15:43; Status DC Levofloxacin (Levaquin) 750 mg DAILY@16 TUBE ; Start 12/29/15 at 16:00; Stop 05/05 at 16:00; Status DC Sodium Chloride (Sodium Chloride) 1 gm DAILY TUBE Last administered on at 07:29; Start 12/30/15 at 09:00; Stop 12/31/15 at 14:08; Status DC Water 200 ml 200 ml Q6HR G-TUBE Last administered on 12/31/15at 04:19; Start 06/05 at 14:45; Stop 12/31/15 at 07:31; Status DC Ceftriaxone Sodium/Sodium Chloride (Rocephin Inj/NS Inj) 100 ml @ 200 mls/hr Q12H IV Last administered on 01/03/16at 02:47; Start 12/30/15 at 15:00; Stop at 10:09; Status DC Acetaminophen (Tylenol 650 Mg/ 20 ml Liq) 650 mg Q6H PRN TUBE TEMP >100.4 Last administered on 08/23/16t 12:52; Start 12/30/15 at 15:15 Lactobacillus Acidophilus (Lactinex Pkt) 1 gm BID TUBE Last administered on at 09:00; Start 12/30/15 at 21:00; Stop 02/10/16 at 14:30; Status DC Enoxaparin Sodium (Lovenox Inj) 90 mg Q12H SQ Last administered on 01/01/16at 21 :57; Start 12/31/15 at 08:00; Stop 01/03/16 at 10:33; Status DC Water (Free Water) 100 ml Q12H G-TUBE ; Start 12/31/15 at 18:00; Stop 12/31/15 at 18:00; Status DC Acetaminophen/ Hydrocodone Bitart (Ball 5-325 Mg) 1 tab Q6H PRN PO PAIN Last administered on 05/26/16at 20:46; Start 12/31/15 at 15:00; Stop 06/02/16 at 21: 44; Status DC Fentanyl Citrate (Sublimaze Inj) 25 mcg Q1H PRN IV PUSH BREAKTHROUGH PAIN; Start 12/31/15 at 15:00; Stop 03/06/16 at 10:03; Status DC Water (Free Water) 200 ml Q8H G-TUBE Last administered on 01/01/16at 17:55; Start 12/31/15 at 18:00; Stop 01/02/16 at 09:56; Status DC Sodium Chloride (Sodium Chloride) 1 gm BID TUBE Last administered on 01/03/16at 07:39; Start 12/31/15 at 21:00; Stop 01/03/16 at 09:08; Status DC Miscellaneous Information Hold Anticoagulation after midni... ONCE ONCE OTHER ; Start 01/01/16 at 10:15; Stop 01/01/16 at 10:29; Status DC Sodium Chloride (NS 1000 ml Inj) 1,000 ml @ 50 mls/hr Q20H IV Last administered on 01/02/16at 12:26; Start 01/01/16 at 18:00; Stop 01/03/16 at 10:07 ; Status DC Midazolam HCl (Versed Inj) 5 mg STK-MED ONCE .ROUTE ; Start 01/02/16 at 12:47; Stop 01/02/16 at 12:48; Status DC Vecuronium [place] (Norcuron 10 Mg Inj) 10 mg STK-MED ONCE .ROUTE ; Start at 12:47; Stop 01/02/16 at 12:48; Status DC Fentanyl Citrate (Sublimaze Inj) 250 mcg ONCE ONCE IV PUSH Last administered on 01/02/16at 15:00; Start 01/02/16 at 15:00; Stop 01/02/16 at 15:01; Status DC Midazolam HCl (Versed Inj) 10 mg ONCE ONCE IV PUSH Last administered on at 15:00; Start 01/02/16 at 15:00; Stop 01/02/16 at 15:01; Status DC Rocuronium [place] (Zemuron Inj) 100 mg BOLUS ONCE IV Last administered on at 15:00; Start 01/02/16 at 15:00; Stop 01/02/16 at 15:01; Status DC Ketamine HCl (Ketalar Inj) 500 mg STK-MED ONCE .ROUTE ; Start 01/02/16 at 14:30 ; Stop 01/02/16 at 14:31; Status DC Propofol 230 mg 230 mg STK-MED ONCE IV ; Start 01/02/16 at 16:51; Stop 01/02/16 at 16:52; Status DC Sodium Chloride (NS 1000 ml Inj) 1,000 ml @ 0 mls/hr Q0M IV ; Start 01/03/16 at 10:15; Stop 01/17/16 at 17:30; Status DC Ranitidine HCl (Zantac Liq) 150 mg Q12HR PO Last administered on 01/17/16at 07: 39; Start 01/04/16 at 09:00; Stop 01/17/16 at 15:23; Status DC Enoxaparin Sodium 90 mg 90 mg Q12HR SQ Last administered on 01/11/16at 10:01; Start 01/04/16 at 09:00; Stop 01/11/16 at 12:35; Status DC Sodium Chloride (NS 500 ml Inj) 500 ml @ 0 mls/hr BOLUS ONCE IV Last administered on 01/03/16at 22:57; Start 01/03/16 at 23:00; Stop 01/03/16 at 23:01 ; Status DC Insulin Aspart (NovoLOG SUPPLEMENTAL SCALE) 1 Q6HR SQ Last administered on at 12:00; Start 01/04/16 at 12:00; Stop 03/24/16 at 13:58; Status DC Potassium Chloride (KCl 40 Meq/30 ml Liq) 40 meq Q4H NG Last administered on at 16:21; Start 01/04/16 at 13:00; Stop 01/04/16 at 17:01; Status DC Warfarin Sodium 5 mg 5 mg DAILY@1600 PO Last administered on 01/09/16at 17:21; Start 01/04/16 at 16:00; Stop 01/10/16 at 10:06; Status DC Pharmacy Profile Note (Coumadin Consult Pharmacy) 0 ml @ 0 mls/hr UNSCH XX ; Start 01/04/16 at 12:30; Stop 04/20/16 at 12:04; Status DC Insulin Detemir (Levemir Inj) 10 units Q12HR SQ Last administered on 01/05/16at 08:00; Start 01/04/16 at 21:00; Stop 01/05/16 at 08:42; Status DC Insulin Detemir (Levemir Inj) 5 units NOW ONCE SQ Last administered on at 13:28; Start 01/04/16 at 12:45; Stop 01/04/16 at 12:46; Status DC Albuterol/ Ipratropium (Duoneb Neb) 1 ampule Q4HR NEB PRN NEB dyspnea Last administered on 04/19/16at 02:24; Start 01/07/16 at 08:15; Stop 04/25/16 at 18:54 ; Status DC Warfarin Sodium (Coumadin) 7.5 mg ONCE ONCE PO Last administered on 01/07/16at 16:40; Start 01/07/16 at 16:00; Stop 01/07/16 at 16:01; Status DC Nystatin (Mycostatin Powder) 1 applic Q12HR TOPICAL Last administered on t 07:47; Start 01/08/16 at 21:00 Ipratropium [place] (Atrovent Neb) 0.5 mg TID NEB NEB Last administered on 02/20at 13:17; Start 01/08/16 at 20:00; Stop 02/21/16 at 17:52; Status DC Warfarin Sodium (Coumadin) 5 mg DAILY@1600 PO Last administered on 01/11/16at 14 :26; Start 01/11/16 at 16:00; Stop 01/12/16 at 09:45; Status DC Warfarin Sodium (Coumadin) 6 mg ONCE PO Last administered on 01/10/16at 17:10; Start 01/10/16 at 16:00; Stop 01/10/16 at 21:00; Status DC Metoprolol Tartrate (Lopressor) 50 mg Q12HR GT Last administered on 01/11/16at 10:02; Start 01/10/16 at 11:00; Stop 01/11/16 at 12:30; Status DC Metoprolol Tartrate (Lopressor) 50 mg TID GT Last administered on 01/14/16at 08: 24; Start 01/11/16 at 13:00; Stop 01/14/16 at 08:28; Status DC Insulin Detemir (Levemir Inj) 10 units HS SQ Last administered on 01/11/16at 22: 23; Start 01/11/16 at 21:00; Stop 01/12/16 at 11:47; Status DC Warfarin Sodium (Coumadin) 4 mg DAILY@16 PO ; Start 01/12/16 at 16:00; Stop at 16:00; Status DC Insulin Detemir (Levemir Inj) 20 units HS SQ Last administered on 01/13/16at 20: 26; Start 01/12/16 at 21:00; Stop 01/14/16 at 08:28; Status DC Warfarin Sodium (Coumadin) 2 mg DAILY@16 PO Last administered on 01/13/16at 17: 05; Start 01/12/16 at 16:00; Stop 01/14/16 at 11:23; Status DC Insulin Detemir (Levemir Inj) 22 units HS SQ Last administered on 01/14/16at 21: 37; Start 01/14/16 at 21:00; Stop 01/15/16 at 10:06; Status DC Metoprolol Tartrate (Lopressor) 75 mg TID GT Last administered on 03/10/16at 17: 43; Start 01/14/16 at 09:00; Stop 03/10/16 at 21:13; Status DC Miscellaneous (Pill Splitter) 1 ea UNSCH PRN OTHER SEE LABEL COMMENTS; Start at 08:30 Warfarin Sodium (Coumadin) 4 mg DAILY@1600 PO Last administered on 01/21/16at 16: 51; Start 01/14/16 at 16:00; Stop 01/23/16 at 09:29; Status DC Patient Medication Teaching (Coumadin Booklet) 1 ONCE ONCE XX ; Start 01/14/16 at 16:00; Stop 01/14/16 at 16:01; Status DC Insulin Detemir (Levemir Inj) 24 units HS SQ Last administered on 03/04/16at 21: 09; Start 01/15/16 at 21:00; Stop 03/05/16 at 11:17; Status DC Citalopram Hydrobromide (CeleXA) 20 mg DAILY PEG Last administered on at 08:01; Start 01/16/16 at 09:00; Stop 01/16/16 at 09:41; Status DC Sennosides (Senna Liq) 8.8 mg BID TUBE Last administered on 02/20/16at 08:32; Start 01/15/16 at 21:00; Stop 02/20/16 at 16:13; Status DC Gadodiamide 18 ml 18 ml STK-MED ONCE IV ; Start 01/16/16 at 20:40; Stop at 20:41; Status DC Sodium Chloride (NS 1000 ml Inj) 1,000 ml @ 125 mls/hr Q8H IV Last administered on 01/17/16at 15:11; Start 01/17/16 at 15:00; Stop 01/17/16 at 17:31 ; Status DC Ranitidine HCl 150 mg 150 mg Q24H PO Last administered on 07/28/16t 08:54; Start 01/18/16 at 09:00; Stop 07/30/16 at 10:05; Status DC Sodium Chloride 1,000 ml @ 75 mls/hr [id number] IV Last administered on at 05:22; Start 01/17/16 at 18:00; Stop 01/18/16 at 09:28; Status DC Sodium Chloride/ Sterile Water (Sodium Chloride 23.4% Inj/Sterile Water For Inj ) 1,009.625 ml @ 60 mls/hr [id number] IV Last administered on 01/21/16at 22:46; Start 01/18/16 at 11:00; Stop 01/22/16 at 10:09; Status DC Potassium Chloride (KCl) 40 meq ONCE ONCE PO ; Start 01/18/16 at 09:30; Stop at 09:31; Status DC Potassium Chloride (KCl 40 Meq/30 ml Liq) 40 meq ONCE ONCE TUBE Last administered on 01/18/16at 11:08; Start 01/18/16 at 11:00; Stop 01/18/16 at 11:01 ; Status DC Water (Free Water) 300 ml Q4HR TUBE Last administered on 01/19/16at 08:00; Start 01/18/16 at 12:00; Stop 01/19/16 at 10:43; Status DC Water (Free Water) 400 ml Q4HR TUBE Last administered on 04/16/16at 04:00; Start 01/19/16 at 12:00; Stop 04/16/16 at 09:09; Status DC Potassium Chloride (KCl 40 Meq/30 ml Liq) 40 meq ONCE ONCE NG Last administered on 01/19/16at 11:41; Start 01/19/16 at 11:00; Stop 01/19/16 at 11:01; Status DC Potassium Chloride 60 meq 60 meq ONCE ONCE PO/TUBE Last administered on at 13:30; Start 01/21/16 at 11:15; Stop 01/21/16 at 11:27; Status DC Sodium Chloride (1/2 NS 1000 ml Inj) 1,000 ml @ 30 mls/hr Q24H IV Last administered on 02/06/16at 11:26; Start 01/22/16 at 11:00; Stop 02/07/16 at 14:49 ; Status DC Warfarin Sodium (Coumadin) 3 mg DAILY@16 PO Last administered on 01/23/16at 17:19 ; Start 01/23/16 at 16:00; Stop 01/24/16 at 14:05; Status DC Warfarin Sodium (Coumadin) 3 mg DAILY@16 PO Last administered on 01/25/16at 15:59 ; Start 01/25/16 at 16:00; Stop 01/26/16 at 15:04; Status DC Warfarin Sodium (Coumadin) 4 mg ONCE@1600 ONCE PO Last administered on at 16:55; Start 01/24/16 at 16:00; Stop 01/24/16 at 16:01; Status DC Warfarin Sodium (Coumadin) 3 mg DAILY@16 PO ; Start 01/27/16 at 16:00; Stop at 16:00; Status DC Warfarin Sodium (Coumadin) 4 mg ONCE@1600 ONCE PO Last administered on at 16:52; Start 01/26/16 at 16:00; Stop 01/26/16 at 16:01; Status DC Potassium Chloride (KCl 40 Meq/30 ml Liq) 80 meq ONCE ONCE PO Last administered on 01/27/16at 07:45; Start 01/27/16 at 07:45; Stop 01/27/16 at 08:10; Status DC Warfarin Sodium (Coumadin) 4 mg DAILY@16 PO Last administered on 02/02/16at 17: 22; Start 01/27/16 at 16:00; Stop 02/03/16 at 11:37; Status DC Acetic Acid (Acetic Acid 0.25% Irr Btl) 10 ml Q8HR IRRIGATION Last administered on 02/05/16at 06:00; Start 01/28/16 at 22:00; Stop 02/05/16 at 15:51 ; Status DC Warfarin Sodium 3 mg 3 mg DAILY@1600 PO Last administered on 02/11/16at 17:34; Start 02/03/16 at 16:00; Stop 02/12/16 at 12:45; Status DC Ceftriaxone Sodium/Sodium Chloride (Rocephin Inj/NS Inj) 100 ml @ 200 mls/hr Q24H IV Last administered on 02/10/16at 05:23; Start 02/05/16 at 06:30; Stop at 14:32; Status DC Acetic Acid (Acetic Acid 0.25% Irr Btl) 10 ml Q8HR IRRIGATION ; Start 02/05/16 at 16:00; Status Cancel Acetic Acid (Acetic Acid 0.25% Irr Btl) 10 ml Q8HR IRRIGATION Last administered on 09/18/16t 06:44; Start 02/05/16 at 16:00 Lactobacillus Acidophilus (Lactinex) 1 tab Q12HR PO Last administered on at 08:25; Start 02/10/16 at 21:00; Stop 02/12/16 at 16:05; Status DC Warfarin Sodium (Coumadin) 4 mg DAILY@1600 PO Last administered on 02/14/16at 15 :56; Start 02/12/16 at 16:00; Stop 02/15/16 at 10:17; Status DC Paroxetine HCl (Paxil Liq) 20 mg DAILY PEG Last administered on 02/25/16at 07:33 ; Start 02/16/16 at 09:00; Stop 02/25/16 at 10:36; Status DC Warfarin Sodium (Coumadin) 3 mg DAILY@1600 PO Last administered on 02/19/16at 16: 42; Start 02/15/16 at 16:00; Stop 02/20/16 at 08:50; Status DC Warfarin Sodium (Coumadin) 4 mg DAILY@16 PO Last administered on 02/21/16at 15:54 ; Start 02/20/16 at 16:00; Stop 02/22/16 at 08:46; Status DC Sennosides (Senna Liq) 8.8 mg DAILY TUBE Last administered on 05/26/16at 08:14 ; Start 02/21/16 at 09:00; Stop 05/27/16 at 11:51; Status DC Albuterol Sulfate (Albuterol Neb) 2.5 mg QID NEB INH Last administered on at 19:51; Start 02/21/16 at 20:00; Stop 02/25/16 at 20:00; Status DC Acetylcysteine (Mucomyst 10% Neb) 1 ml QID NEB NEB Last administered on at 16:32; Start 02/21/16 at 20:00; Stop 02/23/16 at 16:01; Status DC Warfarin Sodium (Coumadin) 3 mg DAILY@16 PO Last administered on 02/22/16at 15:59 ; Start 02/22/16 at 16:00; Stop 02/23/16 at 08:56; Status DC Warfarin Sodium (Coumadin) 3 mg DAILY@16 PO Last administered on 02/28/16 16: 17; Start 02/24/16 at 16:00; Stop 02/29/16 at 10:04; Status DC Warfarin Sodium (Coumadin) 2 mg ONCE PO Last administered on 02/23/16at 16:22; Start 02/23/16 at 16:00; Stop 02/23/16 at 21:00; Status DC Paroxetine HCl (Paxil Liq) 20 mg DAILY@1900 PEG Last administered on 03/08/16at 18:11; Start 02/26/16 at 19:00; Stop 03/09/16 at 11:31; Status DC Warfarin Sodium (Coumadin) 3 mg DAILY@16 PO Last administered on 03/06/16at 16: 22; Start 03/01/16 at 16:00; Stop 03/09/16 at 10:30; Status DC Warfarin Sodium (Coumadin) 1 mg ONCE PO Last administered on 02/29/16at 17:28; Start 02/29/16 at 16:00; Stop 02/29/16 at 21:00; Status DC Insulin Detemir (Levemir Inj) 27 units HS SQ Last administered on 03/05/16at 20: 25; Start 03/05/16 at 21:00; Stop 03/06/16 at 10:03; Status DC Patient Medication Teaching (Coumadin Booklet) 1 ONCE ONCE XX Last administered on 03/05/16at 16:00; Start 03/05/16 at 16:00; Stop 03/05/16 at 16:01 ; Status DC Insulin Detemir (Levemir Inj) 30 units HS SQ Last administered on 03/21/16at 22: 32; Start 03/06/16 at 21:00; Stop 03/22/16 at 14:48; Status DC Trimethoprim/ Sulfamethoxazole (Bactrim 800-160 Mg/20 ml Liq) 20 ml Q12HR PO Last administered on 03/14/16at 08:01; Start 03/07/16 at 11:15; Stop 03/14/16 at 11:14; Status DC Lorazepam (Ativan Inj) 0.5 mg Q4H PRN IV PUSH seizures or agitation; Start at 23:00 Metronidazole (Flagyl) 500 mg Q8H PO Last administered on 03/14/16at 15:51; Start 03/08/16 at 17:00; Stop 03/14/16 at 23:00; Status DC Warfarin Sodium (Coumadin) 2 mg DAILY@16 PO Last administered on 03/09/16at 17: 20; Start 03/09/16 at 16:00; Stop 03/10/16 at 10:33; Status DC Paroxetine HCl (Paxil) 20 mg DAILY@1900 PEG Last administered on 03/11/16at 17: 55; Start 03/09/16 at 19:00; Stop 03/12/16 at 08:31; Status DC Warfarin Sodium 3 mg 3 mg DAILY@16 PO Last administered on 04/12/16at 15:28; Start 03/10/16 at 16:00; Stop 04/12/16 at 16:39; Status DC Pharmacy Profile Note 0 ml @ 0 mls/hr UNSCH OTHER ; Start 03/10/16 at 14:15; Stop 03/18/16 at 11:33; Status DC Vancomycin HCl/ Sodium Chloride (Vancomycin Inj/ NS 500 ml Inj) 530 ml @ 265 mls/hr Q12H IV Last administered on 03/17/16at 16:26; Start 03/10/16 at 16:00; Stop 03/17/16 at 23:00; Status DC Miscellaneous Information SPECIFIC LAB TO BE ... ONCE ONCE XX Last administered on 03/12/16at 04:45; Start 03/12/16 at 03:45; Stop 03/12/16 at 03:46 ; Status DC Metoprolol Tartrate (Lopressor) 75 mg Q8HR PO Last administered on 04/02/16at 13 :13; Start 03/10/16 at 22:00; Stop 04/02/16 at 17:31; Status DC Paroxetine HCl (Paxil Liq) 20 mg DAILY@1900 PEG Last administered on 09/17/16t 18:47; Start 03/12/16 at 19:00 Warfarin Sodium (Coumadin) 1 mg ONCE PO Last administered on 03/21/16at 16:24; Start 03/21/16 at 16:00; Stop 03/21/16 at 21:00; Status DC Warfarin Sodium (Coumadin) 1 mg ONCE PO Last administered on 03/22/16at 17:46; Start 03/22/16 at 16:00; Stop 03/22/16 at 21:00; Status DC Insulin Detemir (Levemir Inj) 32 units HS SQ Last administered on 03/22/16at 20: 18; Start 03/22/16 at 21:00; Stop 03/23/16 at 13:35; Status DC Diltiazem HCl (Cardizem Cd) 120 mg DAILY PO Last administered on 04/14/16at 07: 43; Start 03/22/16 at 16:00; Stop 04/14/16 at 14:39; Status DC Hyoscyamine Sulfate (Levsin Liq) 0.125 mg Q4H PRN PEG INCREASED SECRETIONS Last administered on 04/10/16at 08:05; Start 03/22/16 at 15:15; Stop 04/11/16 at 10:24; Status DC Warfarin Sodium (Coumadin) 2 mg ONCE ONCE PO Last administered on 03/23/16at 17: 26; Start 03/23/16 at 16:00; Stop 03/23/16 at 16:01; Status DC Insulin Detemir (Levemir Inj) 34 units HS SQ Last administered on 03/23/16at 20: 01; Start 03/23/16 at 21:00; Stop 03/24/16 at 13:53; Status DC Insulin Detemir (Levemir Inj) 35 units HS SQ Last administered on 09/17/16t 23: 37; Start 03/24/16 at 21:00 Insulin Aspart (NovoLOG SUPPLEMENTAL SCALE) 1 ACHS SLIDING SCALE SQ Last administered on 04/16/16at 22:27; Start 03/24/16 at 16:00; Stop 04/19/16 at 17:19 ; Status DC Warfarin Sodium (Coumadin) 1 mg ONCE ONCE PO Last administered on 03/30/16at 16 :59; Start 03/30/16 at 16:00; Stop 03/30/16 at 16:01; Status DC Potassium Chloride (KCl 40 Meq/30 ml Liq) 40 meq ONCE ONCE NG Last administered on 03/31/16at 21:28; Start 03/31/16 at 18:30; Stop 03/31/16 at 18:31 ; Status DC Potassium Bicarb/ Potassium Chloride (K-Lyte Cl Eff) 25 meq ONCE ONCE PEG Last administered on 04/02/16at 12:01; Start 04/02/16 at 13:00; Stop 04/02/16 at 13:01; Status DC Metoprolol Tartrate (Lopressor) 75 mg BID PO Last administered on 05/28/16at 21: 03; Start 04/02/16 at 21:00; Stop 05/29/16 at 11:21; Status DC Potassium Bicarb/ Potassium Chloride (K-Lyte Cl Eff) 25 meq ONCE ONCE PEG Last administered on 04/04/16at 14:40; Start 04/04/16 at 12:30; Stop 04/04/16 at 12:31; Status DC Linezolid (Zyvox) 600 mg Q12HR PO Last administered on 04/16/16at 09:11; Start 04/05/16 at 15:00; Stop 04/16/16 at 12:00; Status DC Artificial Tears (Lacrilube Opht Oint) 1 applic Q12HR EACH EYE Last administered on 09/04/16t 21:00; Start 04/10/16 at 11:00; Stop 09/05/16 at 14:38 ; Status DC Hyoscyamine Sulfate (Levsin) 0.25 mg Q4H PRN G-TUBE INCREASED SECRETIONS Last administered on 08/31/16t 05:02; Start 04/11/16 at 10:30 Diatrizoate Meglum/ Diatrizoate Sod ( Gastroview Liq) 18 ml ONCE ONCE PO Last administered on 04/12/16at 16:45; Start 04/12/16 at 16:15; Stop 04/12/16 at 16:16; Status DC Warfarin Sodium (Coumadin) 3 mg DAILY@16 PO ; Start 04/13/16 at 16:00; Stop 05/27/16 at 11:51; Status DC Iohexol (Omnipaque 350 Inj) 98 ml STK-MED ONCE IV Last administered on at 21:01; Start 04/12/16 at 21:01; Stop 04/12/16 at 21:02; Status DC Diltiazem HCl (Cardizem Cd) 180 mg DAILY PO ; Start 04/15/16 at 09:00; Stop at 08:50; Status DC Ondansetron HCl (Zofran Inj) 4 mg Q6HR PRN IV PUSH nausea/vomiting Last administered on 08/10/16 10:16; Start 04/14/16 at 19:45 Diltiazem HCl 60 mg 60 mg QID PO Last administered on 04/25/16at 17:26; Start at 13:00; Stop 04/25/16 at 19:06; Status DC Sodium Chloride 500 ml @ 500 mls/hr BOLUS ONCE IV Last administered on at 09:15; Start 04/15/16 at 09:15; Stop 04/15/16 at 10:14; Status DC Potassium Chloride/Dextrose/ Sodium Chloride (KCl Inj/D5W-NS 1000 ml Inj) 1,005 ml @ 100 mls/hr Q10H3M IV Last administered on 04/15/16at 21:03; Start at 11:00; Stop 04/16/16 at 09:09; Status DC Enoxaparin Sodium (Lovenox Inj) 90 mg Q12H SQ Last administered on 04/16/16at 21 :12; Start 04/16/16 at 09:00; Stop 04/17/16 at 10:37; Status DC Water 200 ml 200 ml Q4HR TUBE Last administered on 09/18/16 12:00; Start at 12:00 Sodium Chloride 1,000 ml @ 84 mls/hr [id number] IV Last administered on at 08:38; Start 04/16/16 at 10:00; Stop 04/20/16 at 12:04; Status DC Ceftriaxone Sodium/Sodium Chloride (Rocephin Inj/NS Inj) 100 ml @ 200 mls/hr Q24H IV Last administered on 05/02/16at 13:19; Start 04/16/16 at 12:00; Stop 05/03/16 at 12:06; Status DC Acetaminophen/ Hydrocodone Bitart (Ball 5-325 Mg) 1 tab Q6HR PEG Last administered on 09/17/16 06:42; Start 04/18/16 at 18:00; Stop 09/17/16 at 09:17 ; Status DC Lactulose (Lactulose Liq) 30 ml NOW ONCE PEG Last administered on 04/19/16at 17 :21; Start 04/19/16 at 17:30; Stop 04/19/16 at 17:31; Status DC Lactulose (Lactulose Liq) 30 ml DAILY PEG Last administered on 05/26/16at 08:14 ; Start 04/20/16 at 09:00; Stop 05/27/16 at 11:39; Status DC Potassium Bicarb/ Potassium Chloride (K-Lyte Cl Eff) 50 meq ONCE ONCE PO Last administered on 04/20/16at 05:52; Start 04/20/16 at 05:45; Stop 04/20/16 at 05:46; Status DC Furosemide (Lasix Inj) 20 mg ONCE ONCE IV PUSH Last administered on 04/20/16at 17:35; Start 04/20/16 at 12:00; Stop 04/20/16 at 12:06; Status DC Insulin Aspart (NovoLOG SUPPLEMENTAL SCALE) 1 ACHS SLIDING SCALE SQ Last administered on 06/02/16at 12:10; Start 04/20/16 at 16:00; Stop 06/02/16 at 21: 44; Status DC Dextrose (D50w (Vial) Inj) 25 ml UNSCH PRN IV HYPOGLYCEMIA-SEE COMMENTS; Start 04/20/16 at 12:00 Glucagon (Glucagon Inj) 1 mg UNSCH PRN IM/SQ HYPOGLYCEMIA-SEE COMMENTS; Start 04/20/16 at 12:00 Lactobacillus Acidophilus (Lactinex) 1 tab Q12HR PEG Last administered on 06/06at 21:34; Start 04/22/16 at 09:00; Stop 06/07/16 at 09:32; Status DC Furosemide (Lasix Inj) 20 mg Q12H IV PUSH Last administered on 04/24/16at 08:52 ; Start 04/22/16 at 09:00; Stop 04/24/16 at 09:25; Status DC Potassium Bicarb/ Potassium Chloride (K-Lyte Cl Eff) 25 meq Q12HR TUBE Last administered on 05/27/16at 08:17; Start 04/22/16 at 09:00; Stop 05/27/16 at 11:51 ; Status DC Albumin Human (Albumin 25% Inj) 12.5 gm Q12H IV Last administered on 04/24/16at 08:46; Start 04/22/16 at 09:00; Stop 04/24/16 at 09:25; Status DC Furosemide (Lasix Inj) 20 mg DAILY IV PUSH Last administered on 05/08/16at 09: 01; Start 04/25/16 at 09:00; Stop 05/08/16 at 11:06; Status DC Albumin Human (Albumin 25% Inj) 12.5 gm DAILY IV Last administered on at 09:02; Start 04/25/16 at 10:00; Stop 05/08/16 at 11:06; Status DC Furosemide (Lasix Inj) 40 mg ONCE ONCE IV PUSH Last administered on 04/25/16at 18:15; Start 04/25/16 at 18:15; Stop 04/25/16 at 18:16; Status DC Albuterol/ Ipratropium (Duoneb Neb) 1 ampule Q6HR NEB NEB Last administered on 04/27/16at 15:52; Start 04/25/16 at 18:30; Stop 04/27/16 at 19:45; Status DC Ipratropium [place] (Atrovent Neb) 0.5 mg Q6HR NEB NEB Last administered on at 16:51; Start 04/25/16 at 22:00; Stop 04/27/16 at 16:44; Status DC Levalbuterol HCl (Xopenex Neb) 0.31 mg Q4HR NEB NEB Last administered on at 23:48; Start 04/25/16 at 20:00; Stop 04/27/16 at 16:43; Status DC Levalbuterol HCl (Xopenex Neb) 0.31 mg Q2HR NEB PRN NEB SHORTNESS OF BREATH; Start 04/25/16 at 18:45; Stop 04/28/16 at 10:50; Status DC Diltiazem HCl (Cardizem) 90 mg QID PEG Last administered on 07/17/16at 09:27; Start 04/25/16 at 21:00; Stop 07/17/16 at 17:52; Status DC Diltiazem HCl (Cardizem) 30 mg NOW ONCE PEG Last administered on 04/25/16at 21: 36; Start 04/25/16 at 19:15; Stop 04/25/16 at 19:16; Status DC Levalbuterol HCl (Xopenex Neb) 0.31 mg Q8HR NEB NEB ; Start 04/28/16 at 00:00; Stop 04/28/16 at 10:50; Status DC Levalbuterol HCl (Xopenex Neb) 0.63 mg Q4HR NEB PRN NEB SHORTNESS OF BREATH Last administered on 05/04/16at 15:26; Start 04/28/16 at 11:00; Stop 05/04/16 at 00:51; Status DC Levalbuterol HCl (Xopenex Neb) 0.63 mg Q8HR NEB NEB Last administered on 05/04at 00:07; Start 04/28/16 at 16:00; Stop 05/04/16 at 00:50; Status DC Polyethylene Glycol/ Electrolytes 4000 ml 4,000 ml ONCE ONCE PO Last administered on 05/05/16at 08:10; Start 05/05/16 at 08:45; Stop 05/05/16 at 08 :46; Status DC Cefazolin Sodium/ Dextrose 50 ml @ 100 mls/hr ONCE ONCE IV ; Start 05/06/16 at 14:00; Stop 05/06/16 at 14:29; Status DC Metronidazole 100 ml @ 100 mls/hr ONCE ONCE IV Last administered on at 14:00; Start 05/06/16 at 14:00; Stop 05/06/16 at 14:59; Status DC Ceftriaxone Sodium/Sodium Chloride (Rocephin Inj/NS Inj) 100 ml @ 200 mls/hr Q24H IV Last administered on 06/09/16at 12:36; Start 05/03/16 at 12:00; Stop 06/10/16 at 12:48; Status DC Levalbuterol HCl (Xopenex Neb) 0.63 mg Q8HR NEB NEB Last administered on 05/05at 08:00; Start 05/04/16 at 00:49; Stop 05/05/16 at 08:07; Status DC Levalbuterol HCl (Xopenex Neb) 0.63 mg Q4HR NEB PRN NEB SHORTNESS OF BREATH Last administered on 08/02/16t 13:48; Start 05/05/16 at 12:00 Levalbuterol HCl (Xopenex Neb) 0.63 mg Q8HR NEB NEB Last administered on 05/08at 23:56; Start 05/05/16 at 08:15; Stop 05/09/16 at 08:15; Status DC Potassium Bicarb/ Potassium Chloride (K-Lyte Cl Eff) 25 meq DAILY TUBE Last administered on 09/18/16 07:46; Start 05/28/16 at 09:00 Aspirin (Aspirin) 325 mg DAILY TUBE Last administered on 09/18/16 07:47; Start 05/27/16 at 11:40 Docusate Sodium (Colace Liq) 100 mg DAILY PRN PO constipation Last administered on 08/16/16 21:09; Start 05/27/16 at 11:45; Stop 08/31/16 at 09:00 ; Status DC Metoprolol Tartrate (Lopressor) 50 mg BID PO Last administered on 08/23/16 09: 03; Start 05/29/16 at 21:00; Stop 08/23/16 at 15:33; Status DC Acetaminophen/ Hydrocodone Bitart (Ball 5-325 Mg) 1 tab Q6H PRN TUBE BREAKTHROUGH PAIN Last administered on 08/02/16 15:11; Start 06/03/16 at 03:00 ; Stop 09/17/16 at 14:33; Status DC Insulin Aspart (NovoLOG SUPPLEMENTAL SCALE) 1 ACHS SLIDING SCALE SQ Last administered on 06/06/16at 21:35; Start 06/03/16 at 07:00; Stop 06/07/16 at 12 :24; Status DC Lactobacillus Acidophilus (Lactinex) 1 tab TID PEG Last administered on 07:47; Start 06/07/16 at 13:00 Insulin Aspart 1 1 AC BREAKFAST SQ Last administered on 09/06/16 07:00; Start 06/08/16 at 07:00 Ceftriaxone Sodium/Sodium Chloride (Rocephin Inj/NS Inj) 100 ml @ 200 mls/hr Q24H IV Last administered on 07/28/16 12:19; Start 06/10/16 at 12:00; Stop 07/29/16 at 13:30; Status DC Heparin Sodium (Porcine) (Heparin Inj) 5,000 units Q12HR SQ Last administered on 06/11/16at 00:58; Start 06/10/16 at 14:15; Stop 06/11/16 at 06:21; Status DC Heparin Sodium (Porcine) (Heparin Inj) 5,000 units Q8HR SQ Last administered on 09/18/16 06:35; Start 06/11/16 at 14:00 Diltiazem HCl (Cardizem) 30 mg QID PEG Last administered on 08/16/16 08:31; Start 07/17/16 at 18:00; Stop 08/16/16 at 12:06; Status DC Bacitracin 1 applic 1 applic BID TOP Last administered on 09/18/16 07:47; Start 07/20/16 at 10:00 Lactated Ringer's 1,000 ml @ 30 mls/hr Q24H IV ; Start 07/21/16 at 17:45; Stop 08/14/16 at 12:08; Status DC Sodium Chloride (NS 500 ml Inj) 500 ml @ 30 mls/hr [id number] IV ; Start 07/21/16 at 17:45; Stop 07/22/16 at 17:44; Status DC Insulin Human Regular (NovoLIN R INJ) See Protocol Table ... UNSCH X1 PRN SQ SEE PROTOCOL; Start 07/21/16 at 17:45; Stop 07/22/16 at 17:44; Status DC Metoprolol Tartrate (Lopressor) 25 mg UNSCH X1 PRN PO SEE LABEL COMMENTS; Start 07/21/16 at 17:45; Stop 07/22/16 at 17:44; Status DC Lidocaine/ Epinephrine (Xylocaine-Epi 1%-1:100,000 Inj) 40 ml STK-MED ONCE .ROUTE Last administered on 07/22/16 10:56; Start 07/22/16 at 10:04; Stop at 10:05; Status DC Ketamine HCl (Ketalar Inj) 500 mg STK-MED ONCE .ROUTE ; Start 07/22/16 at 10:50; Stop 07/22/16 at 10:51; Status DC Propofol 600 mg 600 mg STK-MED ONCE IV ; Start 07/22/16 at 12:00; Stop 07/23/16 at 14:36; Status DC Dextrose 1,000 ml @ 40 mls/hr Q24H ONCE IV Last administered on 07/28/16 14:33 ; Start 07/28/16 at 14:00; Stop 07/29/16 at 13:59; Status DC Ampicillin Sodium/ Sulbactam Sodium/ Sodium Chloride (Unasyn Inj/NS Inj) 100 ml @ 200 mls/hr Q6H IV Last administered on 08/01/16 12:30; Start 07/29/16 at 14: 00; Stop 08/01/16 at 14:13; Status DC Ondansetron HCl 4 mg 4 mg ONCE ONCE IV PUSH Last administered on 07/30/16 02: 46; Start 07/30/16 at 00:30; Stop 07/30/16 at 00:33; Status DC Lactated Ringer's 1,000 ml @ 30 mls/hr Q24H IV ; Start 07/30/16 at 06:00; Stop 08/14/16 at 12:09; Status DC Sodium Chloride (NS 500 ml Inj) 500 ml @ 30 mls/hr [id number] IV ; Start 07/30/16 at 06:00; Stop 07/31/16 at 05:59; Status DC Pantoprazole Sodium (Protonix Inj) 40 mg Q12H IV PUSH Last administered on 11:03; Start 07/30/16 at 10:15 Propofol 200 mg 200 mg STK-MED ONCE IV ; Start 07/30/16 at 09:41; Stop 07/30/16 at 10:19; Status DC Piperacillin Sod/ Tazobactam Sod (Zosyn 4.5 Gm Premix) 100 ml @ 200 mls/hr Q6H IV Last administered on 08/07/16 09:37; Start 08/01/16 at 16:00; Stop at 16:10; Status DC Linezolid (Zyvox) 600 mg Q12HR PO Last administered on 08/22/16 09:10; Start at 21:00; Stop 08/22/16 at 15:55; Status DC Sodium Chloride ([place]) 1 spray BID NASAL Last administered on 07:46; Start 08/01/16 at 21:00 Metronidazole 500 mg 500 mg Q8H PO Last administered on 08/08/16 08:28; Start 08/07/16 at 16:00; Stop 08/08/16 at 16:10; Status DC Sodium Chloride (NS 1000 ml Inj) 1,000 ml @ 42 mls/hr [id number] IV Last administered on 08/14/16 12:44; Start 08/14/16 at 12:00; Stop 08/15/16 at 10:56 ; Status DC Fentanyl Citrate (fentaNYL INJ) 250 mcg STK-MED ONCE .ROUTE Last administered on 08/14/16 15:36; Start 08/14/16 at 15:36; Stop 08/14/16 at 15:37; Status DC Iohexol (Omnipaque 350 Inj) 30 ml STK-MED ONCE G-TUBE Last administered on 08/14 15:45; Start 08/14/16 at 15:52; Stop 08/14/16 at 15:53; Status DC Diltiazem HCl (Cardizem) 30 mg QID PEG Last administered on 09/18/16 07:47; Start 08/16/16 at 13:00 Polyethylene Glycol (Miralax) 17 gm ONCE ONCE PEG Last administered on 11:32; Start 08/17/16 at 12:00; Stop 08/17/16 at 12:01; Status DC Amoxicillin 500 mg 500 mg Q8HR PO Last administered on 09/18/16 06:00; Start at 22:00 Cefepime HCl/ Sodium Chloride (Maxipime Inj/NS Inj) 100 ml @ 200 mls/hr Q8H IV Last administered on 09/03/16 10:46; Start 08/23/16 at 16:00; Stop 09/03/16 at 15:02; Status DC Metoprolol Tartrate (Lopressor) 75 mg BID PO Last administered on 09/13/16 08: 42; Start 08/23/16 at 21:00; Stop 09/13/16 at 13:09; Status DC Docusate Sodium (Colace Liq) 100 mg BID PO Last administered on 09/18/16 07:46 ; Start 08/30/16 at 21:00 Sennosides (Senokot) 17.2 mg DAILY PO Last administered on 09/18/16 07:47; Start 08/30/16 at 14:00 Lactulose (Lactulose Liq) 30 ml DAILY PO Last administered on 09/18/16 07:46; Start 09/02/16 at 15:30 Artificial Tears (Tears Naturale Opth Soln) 1 drop BID EACH EYE Last administered on 09/18/16 07:46; Start 09/05/16 at 21:00 Midazolam HCl (Versed Inj) 2 mg STK-MED ONCE .ROUTE Last administered on 11:37; Start 09/09/16 at 11:37; Stop 09/09/16 at 11:38; Status DC Fentanyl Citrate (fentaNYL INJ) 100 mcg STK-MED ONCE .ROUTE Last administered on 09/09/16 11:38; Start 09/09/16 at 11:38; Stop 09/09/16 at 11:39; Status DC Iohexol (Omnipaque 350 Inj) 20 ml STK-MED ONCE G-TUBE Last administered on 09/09 11:50; Start 09/09/16 at 11:50; Stop 09/09/16 at 12:15; Status DC Metoprolol Tartrate (Lopressor) 50 mg BID PO Last administered on 09/18/16 07: 46; Start 09/13/16 at 21:00 Acetaminophen/ Hydrocodone Bitart (Ball 5-325 Mg) 1 tab Q6H PEG ; Start at 11:00; Stop 09/17/16 at 14:25; Status DC Acetaminophen/ Hydrocodone Bitart (Ball 5-325 Mg) 1 tab DAILY@1600 PO ; Start 09/17/16 at 16:00; Stop 09/17/16 at 16:00; Status DC Morphine Sulfate (Morphine Inj) 1 mg Q24H PRN IV PUSH dressing change 30 min before; Start 09/17/16 at 14:30 Acetaminophen/ Hydrocodone Bitart (Ball 5-325 Mg) 1 tab DAILY@0000 PO Last administered on 09/17/16 23:43; Start 09/18/16 at 00:00 Date of Insertion: Aug 03, 2016 A/P Problem List: (1) CVA (cerebral vascular accident) ICD Code: I63.9 Status: Acute (2) A-fib ICD Code: I48.91 Status: Chronic (3) DM (diabetes mellitus) ICD Code: E11.9 Status: Chronic Assessment and Plan 60-year-old male with: 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 Continue Keppra for seizure prophylaxis. PT/OT signed off as patient is unable to participate. Chronic respiratory failure -Secondary to CVA. Status post tracheostomy. Continue pulmonary toilet and bronchodilators as needed. Continue trach care, suctioning. Levsin as needed. On 28% FiO2 09/06. -pulm is ff. Atrial fibrillation -Continue rate control with Cardizem and metoprolol. Echocardiogram in November 2015 shows preserved ejection fraction. Coumadin discontinued secondary to bleeding. Continue aspirin and prophylactic heparin dose. HR well controlled 09/06. History of non-Hodgkin's lymphoma - Status post brain biopsy on December 13 by neurosurgery. Pathology consistent with acute infarct without evidence of lymphoma. Oncology signed off. Diabetes mellitus -Hemoglobin A1c is 7. Continue Levemir. Monitor Accu-Cheks and cover with sliding scale insulin. Glucose well controlled 09/06. Decubitus ulcer stage IV -Continue wound care, twice-daily dressing changes. Wound care recommendations. Continue pressure relief measures including turning and positioning. Patient's family has declined a diverting colostomy. Wound culture growing Klebsiella. on Augmentin. Status post wide excision of sacral skin and biopsy of the cavity lining with debridement on 07/22/16. Gastric ulcer, reflux esophagitis - EGD on 07/30/16 showed gastric ulcers. Appreciate GI recommendations. Continue PPI. H&H stable. UTI pseudomonas aeruginosa treated with abx - Repeat Ucx 08/28/16 negative. Constipation: -on lactulose. FEN: Continue Nepro tube feeds. Follow up with dietary recommendations. Continue free water flushes. Supplement potassium. DVT prophylaxis: SCDs/ subq heparin. dc planning to SNF-no funding- SSI pending. Problem Qualifiers (1) DM (diabetes mellitus): Qualified Code: E11.9 - Type 2 diabetes mellitus without complications Patsy Wilkes MD Sep 18, 2016 13:19
--- NOTE | 2016-09-18 16:30 | HHI.PR ---
Subjective Remarks no change on o2 , o2 SAT 95% trach ok Objective Vital Signs Date Time Temp Pulse Resp B/P Pulse Ox O2 Delivery O2 Flow Rate FiO2 09/18/16 12:00 96.0 79 20 109/63 99 09/18/16 09:05 98 T-piece 6.00 28 09/18/16 09:05 98 T-piece 6.00 28 09/18/16 08:17 96.4 83 20 108/71 96 09/18/16 08:06 98 T-Piece 6.00 28 Humidified 09/18/16 04:00 96.6 84 18 126/68 98 09/18/16 01:20 T-Piece 6.00 28 Humidified 09/18/16 00:07 96.5 84 18 129/71 97 09/17/16 20:00 96.0 82 18 115/60 98 I/O 09/17/16 09/17/16 09/17/16 09/18/16 09/18/16 09/18/16 07:00 15:00 23:00 07:00 15:00 23:00 Output Total 550 ml 360 ml 750 ml 650 ml Balance -550 ml -360 ml -750 ml -650 ml Output Urine Total 550 ml 360 ml 750 ml 650 ml Procedures 01/02/16 PEG placement 01/02/16 tracheostomy 07/22/2016 Wide excision of sacral skin wound, biopsy of the cavity lining and debridement. PEG tube replacement 07/29/16 Objective Remarks GENERAL: SKIN: Warm and dry. HEAD: Atraumatic. Normocephalic. EYES: Pupils equal and round. No scleral icterus. No injection or drainage. ENT: No nasal bleeding or discharge. Mucous membranes pink and moist. NECK: Trachea midline. No JVD. TRACH. [place] CARDIOVASCULAR: Regular rate and rhythm. RESPIRATORY: No accessory muscle use. Clear to auscultation. Breath sounds equal bilaterally. GASTROINTESTINAL: Abdomen soft, non-tender, nondistended. Hepatic and splenic margins not palpable. MUSCULOSKELETAL: Extremities without clubbing, cyanosis, or edema. No obvious deformities. NEUROLOGICAL: Awake and alert. No obvious cranial nerve deficits. Motor grossly within normal limits. Five out of 5 muscle strength in the arms and legs. Normal speech. PSYCHIATRIC: Appropriate mood and affect; insight and judgment normal. Assessment and Plan Assessment and Plan impression respiratory failure CVA S/P TRACHEOSTOMY PLAN O2 NEEDED PULM. TOILET Brandon Taylor MD Sep 18, 2016 16:30
[2016-09-18] MEDS: PARoxetine HCL SUSP 20 MG/10 ML UDC PEG SCH (18:09)
[2016-09-18] MEDS: INSULIN DETEMIR 100 UNITS/ML VIAL SQ SCH (21:00)
[2016-09-19] VITALS (7 sets, daily range): BP systolic 110–139; BP diastolic 66–84; PULSE 85–100; RESP 18; TEMP 95.7–97.8; O2SAT 97–99
[2016-09-19] MEDS: ACETAMINOPHEN/HYDROcodone 325 MG/5 MG TAB PO SCH
[2016-09-19] MEDS: FREE WATER TUBE SCH ×6 (04:00→20:00)
[2016-09-19] MEDS: AMOXICILLIN (TRIHYDRATE) 500 MG CAP PO SCH ×3 (06:00→22:37)
[2016-09-19] MEDS: ACETIC ACID 0.25% SOLN 1000 ML IRR BTL IRRIGATION SCH ×3 (06:00→22:00)
[2016-09-19] MEDS: INSULIN ASPART SUPPLEMENTAL SCALE SQ SCH (07:00)
[2016-09-19] MEDS: HEPARIN SODIUM - SQ 10,000 UNITS/ML VIAL SQ SCH ×3 (07:11→22:37)
[2016-09-19] MEDS: LACTULOSE SYRUP 20 GM/30 ML CUP PO SCH (08:14)
[2016-09-19] MEDS: ASPIRIN 325 MG TAB TUBE SCH (08:14)
[2016-09-19] MEDS: DOCUSATE SODIUM 100 MG/10 ML UDC PO SCH ×2 (08:14→21:00)
[2016-09-19] MEDS: METOPROLOL TARTRATE 50 MG TAB PO SCH ×2 (08:14→22:37)
[2016-09-19] MEDS: levETIRAcetam 500 MG/5 ML UDC TUBE SCH ×2 (08:14→22:37)
[2016-09-19] MEDS: POTASSIUM CHLORIDE 25 MEQ EFFERVESCENT TAB TUBE SCH (08:15)
[2016-09-19] MEDS: DILTIAZEM HCL 30 MG TAB PEG SCH ×4 (08:15→22:37)
[2016-09-19] MEDS: SENNOSIDES 8.6 MG TAB PO SCH (08:15)
[2016-09-19] MEDS: LACTOBACILLUS ACIDOPHILUS TAB PEG SCH ×3 (08:15→17:59)
[2016-09-19] MEDS: ARTIFICIAL TEARS OPTH SOLN 15 ML BTL EACH EYE SCH ×2 (08:15→21:00)
[2016-09-19] MEDS: SODIUM CHLORIDE 0.65% NASAL SPRAY 45 ML BTL NASAL SCH ×2 (08:25→21:00)
[2016-09-19] MEDS: NYSTATIN 100,000 U/GM PWD 15 GM BTL TOPICAL SCH ×2 (08:26→21:00)
[2016-09-19] MEDS: BACITRACIN TOP OINT 15 GM TUBE TOP SCH ×2 (08:26→21:00)
--- NOTE | 2016-09-19 09:49 | HHI.PR ---
Subjective Remarks Nursing staff states no acute changes overnight. Discussed with at bedside has no other concerns. Objective Vitals Vital Signs Date Time Temp Pulse Resp B/P Pulse Ox O2 Delivery O2 Flow Rate FiO2 09/19/16 09:11 96.0 89 18 139/79 98 09/19/16 08:31 100 T-Piece 6.00 28 Humidified 09/19/16 04:00 97.6 97 18 133/84 97 09/19/16 00:00 97.0 100 18 132/73 98 09/18/16 20:00 97.4 83 20 140/83 93 09/18/16 16:00 96.1 75 20 117/70 100 09/18/16 12:00 96.0 79 20 109/63 99 I/O 09/18/16 09/18/16 09/18/16 09/19/16 09/19/16 09/19/16 07:00 15:00 23:00 07:00 15:00 23:00 Intake Total 777 ml 862 ml Output Total 650 ml 700 ml Balance -650 ml -700 ml 777 ml 862 ml Tube Feeding 477 ml 462 ml Other 300 ml 400 ml Output Urine Total 650 ml 700 ml # Bowel Movements 0 Objective Remarks GENERAL: This is a well-nourished, well-developed patient, in no apparent distress. NECK: Trach, TPs in place CARDIOVASCULAR: Regular rate and rhythm RESPIRATORY: Relatively clear to auscultation bilaterally GASTROINTESTINAL: Abdomen soft, obese non-tender, nondistended. Normal active bowel sounds MUSCULOSKELETAL: Extremities without clubbing, cyanosis, which trace edema. In bilateral heel protectors NEURO: Tracks with eyes, Procedures 01/02/16 PEG placement 01/02/16 tracheostomy 07/22/2016 Wide excision of sacral skin wound, biopsy of the cavity lining and debridement. 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 Tracks with his eyes. Continue Keppra for seizure prophylaxis. PT/OT signed off as patient is unable to participate. need placement. Chronic respiratory failure -Secondary to CVA. Status post tracheostomy. Continue pulmonary toilet and bronchodilators as needed. Continue trach care, suctioning. Levsin as needed. Pulmonary currently following Atrial fibrillation -Continue rate control with Cardizem and metoprolol. Echocardiogram in November 2015 shows preserved ejection fraction. Coumadin discontinued secondary to bleeding. Continue aspirin and prophylactic heparin dose. History of non-Hodgkin's lymphoma - Status post brain biopsy on December 13 by neurosurgery. Pathology consistent with acute infarct without evidence of lymphoma. Oncology has signed all Diabetes mellitus -Hemoglobin A1c is 7. Continue Levemir. Monitor Accu-Cheks and cover with sliding scale insulin. Overall blood sugar well controlled. Decubitus ulcer stage IV -Continue wound care, twice-daily dressing changes. Wound care recommendations. Continue pressure relief measures including turning and positioning. Patient's family has declined a diverting colostomy. Previous Wound culture growing Klebsiella. on Augmentin. Status post wide excision of sacral skin and biopsy of the cavity lining with debridement on 07/22/16. Gastric ulcer, reflux esophagitis - EGD on 07/30/16 showed gastric ulcers. Appreciate GI recommendations. Continue PPI. H&H stable. UTI pseudomonas aeruginosa treated with abx - Repeat Ucx 08/28/16 negative. Constipation: -on lactulose. FEN: Continue Nepro tube feeds. Follow up with dietary recommendations. Continue free water flushes. DVT prophylaxis: SCDs/ subq heparin. Discharge Planning Await placement, [facility] declined patient Problem Qualifiers (1) DM (diabetes mellitus): Qualified Code: E11.9 - Type 2 diabetes mellitus without complications Allegra Humphries MD Sep 19, 2016 09:49
[2016-09-19] MEDS: PANTOPRAZOLE SODIUM 40 MG VIAL IV PUSH SCH ×2 (10:20→22:37)
--- NOTE | 2016-09-19 15:16 | HHI.PR ---
Subjective Remarks no change on o2 , o2 SAT 95% trach ok Objective Vital Signs Date Time Temp Pulse Resp B/P Pulse Ox O2 Delivery O2 Flow Rate FiO2 09/19/16 12:47 95.7 85 18 119/75 97 09/19/16 09:17 99 T-piece 6.00 28 09/19/16 09:11 96.0 89 18 139/79 98 09/19/16 08:31 100 T-Piece 6.00 28 Humidified 09/19/16 04:00 97.6 97 18 133/84 97 09/19/16 00:00 97.0 100 18 132/73 98 09/18/16 20:00 97.4 83 20 140/83 93 09/18/16 16:00 96.1 75 20 117/70 100 I/O 09/18/16 09/18/16 09/18/16 09/19/16 09/19/16 09/19/16 06:59 14:59 22:59 06:59 14:59 22:59 Intake Total 777 ml 862 ml Output Total 650 ml 700 ml 475 ml Balance -650 ml -700 ml 777 ml 862 ml -475 ml Tube Feeding 477 ml 462 ml Other 300 ml 400 ml Output Urine Total 650 ml 700 ml 475 ml # Bowel Movements 0 1 Procedures 01/02/16 PEG placement 01/02/16 tracheostomy 07/22/2016 Wide excision of sacral skin wound, biopsy of the cavity lining and debridement. PEG tube replacement 07/29/16 Objective Remarks GENERAL: SKIN: Warm and dry. HEAD: Atraumatic. Normocephalic. EYES: Pupils equal and round. No scleral icterus. No injection or drainage. ENT: No nasal bleeding or discharge. Mucous membranes pink and moist. NECK: Trachea midline. No JVD. TRACH. [place] CARDIOVASCULAR: Regular rate and rhythm. RESPIRATORY: No accessory muscle use. Clear to auscultation. Breath sounds equal bilaterally. GASTROINTESTINAL: Abdomen soft, non-tender, nondistended. Hepatic and splenic margins not palpable. MUSCULOSKELETAL: Extremities without clubbing, cyanosis, or edema. No obvious deformities. NEUROLOGICAL: Awake and alert. No obvious cranial nerve deficits. Motor grossly within normal limits. Five out of 5 muscle strength in the arms and legs. Normal speech. PSYCHIATRIC: Appropriate mood and affect; insight and judgment normal. Assessment and Plan Assessment and Plan impression respiratory failure CVA S/P TRACHEOSTOMY PLAN O2 NEEDED PULM. TOFLORENCIAT Brandon Taylor MD Sep 19, 2016 15:15
[2016-09-19] MEDS: PARoxetine HCL SUSP 20 MG/10 ML UDC PEG SCH (17:58)
[2016-09-19] MEDS: INSULIN DETEMIR 100 UNITS/ML VIAL SQ SCH (21:00)
[2016-09-19] MEDS: SODIUM CHLORIDE 0.9% FLUSH 5 ML FLUSH IVF PRN (22:42)
[2016-09-20] VITALS (9 sets, daily range): BP systolic 110–141; BP diastolic 69–83; PULSE 74–98; RESP 18–20; TEMP 95.6–98; O2SAT 96–98
[2016-09-20] MEDS: FREE WATER TUBE SCH ×5 (04:00→16:00)
[2016-09-20] MEDS: AMOXICILLIN (TRIHYDRATE) 500 MG CAP PO SCH ×2 (05:26→13:18)
[2016-09-20] MEDS: ACETIC ACID 0.25% SOLN 1000 ML IRR BTL IRRIGATION SCH ×2 (05:26→13:18)
[2016-09-20] MEDS: HEPARIN SODIUM - SQ 10,000 UNITS/ML VIAL SQ SCH ×2 (05:26→13:18)
[2016-09-20] MEDS: INSULIN ASPART SUPPLEMENTAL SCALE SQ SCH (07:00)
[2016-09-20] MEDS: DOCUSATE SODIUM 100 MG/10 ML UDC PO SCH (08:48)
[2016-09-20] MEDS: LACTULOSE SYRUP 20 GM/30 ML CUP PO SCH (08:48)
[2016-09-20] MEDS: SENNOSIDES 8.6 MG TAB PO SCH (08:49)
[2016-09-20] MEDS: DILTIAZEM HCL 30 MG TAB PEG SCH ×3 (08:49→18:00)
[2016-09-20] MEDS: METOPROLOL TARTRATE 50 MG TAB PO SCH ×2 (08:49→21:00)
[2016-09-20] MEDS: ARTIFICIAL TEARS OPTH SOLN 15 ML BTL EACH EYE SCH (08:49)
[2016-09-20] MEDS: LACTOBACILLUS ACIDOPHILUS TAB PEG SCH ×3 (08:49→18:00)
[2016-09-20] MEDS: ASPIRIN 325 MG TAB TUBE SCH (08:49)
[2016-09-20] MEDS: levETIRAcetam 500 MG/5 ML UDC TUBE SCH (08:49)
[2016-09-20] MEDS: PANTOPRAZOLE SODIUM 40 MG VIAL IV PUSH SCH (08:49)
[2016-09-20] MEDS: POTASSIUM CHLORIDE 25 MEQ EFFERVESCENT TAB TUBE SCH (08:49)
[2016-09-20] MEDS: NYSTATIN 100,000 U/GM PWD 15 GM BTL TOPICAL SCH (08:50)
[2016-09-20] MEDS: SODIUM CHLORIDE 0.65% NASAL SPRAY 45 ML BTL NASAL SCH (08:50)
[2016-09-20] MEDS: BACITRACIN TOP OINT 15 GM TUBE TOP SCH (08:50)
[2016-09-20] MEDS: MORPHINE SULFATE 4 MG/ML INJ IV PUSH PRN (11:20)
--- NOTE | 2016-09-20 12:50 | HHI.PR ---
Subjective Remarks at bedside concerned about patient being more agitated with weaning of the pain medication Objective Vitals Vital Signs Date Time Temp Pulse Resp B/P Pulse Ox O2 Delivery O2 Flow Rate FiO2 09/20/16 12:32 95.6 74 18 123/79 98 09/20/16 10:36 92 09/20/16 08:21 95.7 92 18 141/83 98 09/20/16 04:00 98.0 95 20 130/79 96 09/20/16 00:22 98 T-piece 6.00 28 09/20/16 00:00 99 T-Piece 28 Humidified 09/19/16 18:02 110/66 09/19/16 17:00 97.8 93 18 123/77 98 I/O 09/19/16 09/19/16 09/19/16 09/20/16 09/20/16 09/20/16 07:00 15:00 23:00 07:00 15:00 23:00 Intake Total 862 ml Output Total 475 ml 1100 ml 500 ml Balance 862 ml -475 ml -1100 ml -500 ml Tube Feeding 462 ml Other 400 ml Output Urine Total 475 ml 1100 ml 500 ml # Bowel Movements 1 2 2 Objective Remarks GENERAL: This is a well-nourished, well-developed patient, in no apparent distress. NECK: Trach, TPs in place CARDIOVASCULAR: Regular rate and rhythm RESPIRATORY: Relatively clear to auscultation bilaterally GASTROINTESTINAL: Abdomen soft, obese non-tender, nondistended. Normal active bowel sounds MUSCULOSKELETAL: Extremities without clubbing, cyanosis, which trace edema. In bilateral heel protectors NEURO: Tracks with eyes, Procedures 01/02/16 PEG placement 01/02/16 tracheostomy 07/22/2016 Wide excision of sacral skin wound, biopsy of the cavity lining and debridement. 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 Tracks with his eyes. Continue Keppra for seizure prophylaxis. PT/OT signed off as patient is unable to participate. need placement. Chronic respiratory failure -Secondary to CVA. Status post tracheostomy. Continue pulmonary toilet and bronchodilators as needed. Continue trach care, suctioning. Levsin as needed. Pulmonary currently following Atrial fibrillation -Continue rate control with Cardizem and metoprolol. Echocardiogram in November 2015 shows preserved ejection fraction. Coumadin discontinued secondary to bleeding. Continue aspirin and prophylactic heparin dose. History of non-Hodgkin's lymphoma - Status post brain biopsy on December 13 by neurosurgery. Pathology consistent with acute infarct without evidence of lymphoma. Oncology has signed all Diabetes mellitus -Hemoglobin A1c is 7. Continue Levemir. Monitor Accu-Cheks and cover with sliding scale insulin. Overall blood sugar well controlled. Decubitus ulcer stage IV -Continue wound care, twice-daily dressing changes. Wound care recommendations. Continue pressure relief measures including turning and positioning. Patient's family has declined a diverting colostomy. Previous Wound culture growing Klebsiella. on Augmentin. Status post wide excision of sacral skin and biopsy of the cavity lining with debridement on 07/22/16. At this time, we'll schedule [place] every 8 hours due to increased signs of possibly pain and agitation as patient previously was on [place] every 6 hours as needed for pain prior to the weaning process start on 09/17. Gastric ulcer, reflux esophagitis - EGD on 07/30/16 showed gastric ulcers. Appreciate GI recommendations. Continue PPI. H&H stable. UTI pseudomonas aeruginosa treated with abx - Repeat Ucx 08/28/16 negative. Constipation: -on lactulose. FEN: Continue Nepro tube feeds. Follow up with dietary recommendations. Continue free water flushes. DVT prophylaxis: SCDs/ subq heparin. Discussed with family at bedside. Discharge Planning Await placement, dominguez declined patient Problem Qualifiers (1) DM (diabetes mellitus): Qualified Code: E11.9 - Type 2 diabetes mellitus without complications Allegra Humphries MD Sep 20, 2016 12:50
[2016-09-20] MEDS: ACETAMINOPHEN/HYDROcodone 325 MG/5 MG TAB PO SCH ×2 (13:18)
[2016-09-20] MEDS: PARoxetine HCL SUSP 20 MG/10 ML UDC PEG SCH (19:00)
[2016-09-21] VITALS (10 sets, daily range): BP systolic 100–129; BP diastolic 58–81; PULSE 82–100; RESP 18–22; TEMP 96.6–98.7; O2SAT 90–100
[2016-09-21] MEDS: PANTOPRAZOLE SODIUM 40 MG VIAL IV PUSH SCH ×3 (01:30→23:36)
[2016-09-21] MEDS: HEPARIN SODIUM - SQ 10,000 UNITS/ML VIAL SQ SCH ×4 (01:30→23:36)
[2016-09-21] MEDS: AMOXICILLIN (TRIHYDRATE) 500 MG CAP PO SCH ×4 (01:30→23:36)
[2016-09-21] MEDS: levETIRAcetam 500 MG/5 ML UDC TUBE SCH ×3 (01:33→23:36)
[2016-09-21] MEDS: DOCUSATE SODIUM 100 MG/10 ML UDC PO SCH ×3 (01:33→23:36)
[2016-09-21] MEDS: INSULIN DETEMIR 100 UNITS/ML VIAL SQ SCH ×3 (01:34→23:54)
[2016-09-21] MEDS: ACETAMINOPHEN/HYDROcodone 325 MG/5 MG TAB PO SCH ×4 (01:34→23:37)
[2016-09-21] MEDS: ACETIC ACID 0.25% SOLN 1000 ML IRR BTL IRRIGATION SCH ×4 (01:35→23:38)
[2016-09-21] MEDS: DILTIAZEM HCL 30 MG TAB PEG SCH ×5 (01:35→21:00)
[2016-09-21] MEDS: NYSTATIN 100,000 U/GM PWD 15 GM BTL TOPICAL SCH ×3 (01:36→23:38)
[2016-09-21] MEDS: BACITRACIN TOP OINT 15 GM TUBE TOP SCH ×3 (01:36→23:38)
[2016-09-21] MEDS: ARTIFICIAL TEARS OPTH SOLN 15 ML BTL EACH EYE SCH ×3 (01:37→23:40)
[2016-09-21] MEDS: FREE WATER TUBE SCH ×8 (01:38→23:54)
[2016-09-21] MEDS: SODIUM CHLORIDE 0.65% NASAL SPRAY 45 ML BTL NASAL SCH ×3 (01:38→23:41)
[2016-09-21] MEDS: SODIUM CHLORIDE 0.9% FLUSH 5 ML FLUSH IVF PRN ×3 (01:57→23:47)
[2016-09-21] MEDS: INSULIN ASPART SUPPLEMENTAL SCALE SQ SCH (06:08)
[2016-09-21] MEDS: LACTOBACILLUS ACIDOPHILUS TAB PEG SCH ×3 (09:32→17:21)
[2016-09-21] MEDS: LACTULOSE SYRUP 20 GM/30 ML CUP PO SCH (09:32)
[2016-09-21] MEDS: SENNOSIDES 8.6 MG TAB PO SCH (09:32)
[2016-09-21] MEDS: POTASSIUM CHLORIDE 25 MEQ EFFERVESCENT TAB TUBE SCH (09:33)
[2016-09-21] MEDS: METOPROLOL TARTRATE 50 MG TAB PO SCH ×2 (09:33→21:00)
[2016-09-21] MEDS: ASPIRIN 325 MG TAB TUBE SCH (09:33)
[2016-09-21] MEDS: PARoxetine HCL SUSP 20 MG/10 ML UDC PEG SCH ×2 (17:21→18:27)
--- NOTE | 2016-09-21 18:54 | HHI.PR ---
Subjective Remarks Patient seen today around 11:30 AM. No acute changes per nursing. Family with no concerns. Objective Vital Signs Date Time Temp Pulse Resp B/P Pulse Ox O2 Delivery O2 Flow Rate FiO2 09/21/16 16:00 97.6 82 18 121/71 98 09/21/16 12:17 100 T-piece 6.00 28 09/21/16 12:00 98.0 88 19 117/67 100 09/21/16 11:18 94 09/21/16 09:32 100 T-Piece 28 09/21/16 08:00 97.4 100 22 119/74 100 09/21/16 04:00 97.0 100 22 129/79 97 09/21/16 00:00 98.7 95 20 117/81 98 09/20/16 19:00 95.7 98 18 116/75 98 I/O 09/20/16 09/20/16 09/20/16 09/21/16 09/21/16 09/21/16 07:00 15:00 23:00 07:00 15:00 23:00 Intake Total 1305 ml Output Total 1100 ml 500 ml 425 ml 850 ml 800 ml Balance -1100 ml -500 ml 880 ml -850 ml -800 ml Tube Feeding 605 ml Other 700 ml Output Urine Total 1100 ml 500 ml 425 ml 850 ml 800 ml # Bowel Movements 2 2 1 3 Procedures 01/02/16 PEG placement 01/02/16 tracheostomy 07/22/2016 Wide excision of sacral skin wound, biopsy of the cavity lining and debridement. PEG tube replacement 07/29/16 Objective Remarks GENERAL: lying in bed. Sleeping. Family does not want me to wake him. Appears comfortable. SKIN: Warm and dry. HEAD: Normocephalic. EYES: No scleral icterus. No injection or drainage. NECK: Supple, trachea midline. No JVD . CARDIOVASCULAR: Regular rate and rhythm without murmurs, gallops, or rubs. RESPIRATORY: Breath sounds equal bilaterally. No accessory muscle use. GASTROINTESTINAL: Abdomen soft, non-tender, nondistended. PEG tube in place. No surrounding erythema as before. MUSCULOSKELETAL: No cyanosis, or edema. BACK: Nontender without obvious deformity. No CVA tenderness. A/P Assessment and Plan 09/21/16. Patient seen and examined. No acute changes. We'll order follow-up labs for tomorrow. 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 Tracks with his eyes. Continue Keppra for seizure prophylaxis. PT/OT signed off as patient is unable to participate. -Need placement. Difficult. Appreciate case management assistance. //Chronic respiratory failure -Secondary to CVA. Status post tracheostomy. Continue pulmonary toilet and bronchodilators as needed. Continue trach care, suctioning. Levsin as needed. -Pulmonary currently following . Appreciate assistance. //Atrial fibrillation -Continue rate control with Cardizem and metoprolol. Echocardiogram in November 2015 shows preserved ejection fraction. Coumadin discontinued secondary to bleeding. Rate controlled. Continue aspirin and prophylactic heparin dose. //History of non-Hodgkin's lymphoma - Status post brain biopsy on December 13 by neurosurgery. Pathology consistent with acute infarct without evidence of lymphoma. Oncology has signed all //Diabetes mellitus -Hemoglobin A1c is 7. Continue Levemir. Monitor Accu-Cheks and cover with sliding scale insulin. Overall blood sugar continues well controlled. //Decubitus ulcer stage IV -Continue wound care, twice-daily dressing changes. Wound care recommendations. Continue pressure relief measures including turning and positioning. Patient's family has declined a diverting colostomy. Previous Wound culture growing Klebsiella. on Augmentin. Status post wide excision of sacral skin and biopsy of the cavity lining with debridement on 07/22/16. Continue scheduled [place] every 8 hours. -Continue to monitor for pain. //Gastric ulcer, reflux esophagitis - EGD on 07/30/16 showed gastric ulcers. Appreciate GI recommendations. Continue PPI. H&H stable as of last recheck.. //UTI pseudomonas aeruginosa treated with abx -Resolved. - Repeat Ucx 08/28/16 negative. //Constipation: -Having regular bowel movements. -on lactulose. Monitor. //FEN: Continue Nepro tube feeds with free water flushes. Appreciate dietary assistance. //DVT prophylaxis: SCDs/ subq heparin. Discharge Planning appreciate case management assistance. Ramiro Rucker MD Sep 21, 2016 18:54
[2016-09-22] VITALS (9 sets, daily range): BP systolic 97–125; BP diastolic 63–77; PULSE 82–97; RESP 18–20; TEMP 96.6–97.6; O2SAT 98–100
[2016-09-22] MEDS: AMOXICILLIN (TRIHYDRATE) 500 MG CAP PO SCH ×3 (06:11→22:18)
[2016-09-22] MEDS: HEPARIN SODIUM - SQ 10,000 UNITS/ML VIAL SQ SCH ×3 (06:11→22:20)
[2016-09-22] MEDS: ACETAMINOPHEN/HYDROcodone 325 MG/5 MG TAB PO SCH ×3 (06:12→22:19)
[2016-09-22] MEDS: ACETIC ACID 0.25% SOLN 1000 ML IRR BTL IRRIGATION SCH ×3 (06:12→22:21)
[2016-09-22] MEDS: FREE WATER TUBE SCH ×5 (06:12→22:19)
[2016-09-22] MEDS: INSULIN ASPART SUPPLEMENTAL SCALE SQ SCH (07:00)
[2016-09-22] MEDS: LACTOBACILLUS ACIDOPHILUS TAB PEG SCH ×3 (08:53→18:16)
[2016-09-22] MEDS: METOPROLOL TARTRATE 50 MG TAB PO SCH ×2 (08:53→22:18)
[2016-09-22] MEDS: levETIRAcetam 500 MG/5 ML UDC TUBE SCH ×2 (08:53→22:17)
[2016-09-22] MEDS: SENNOSIDES 8.6 MG TAB PO SCH (08:53)
[2016-09-22] MEDS: POTASSIUM CHLORIDE 25 MEQ EFFERVESCENT TAB TUBE SCH (08:53)
[2016-09-22] MEDS: DOCUSATE SODIUM 100 MG/10 ML UDC PO SCH ×2 (08:53→22:18)
[2016-09-22] MEDS: DILTIAZEM HCL 30 MG TAB PEG SCH ×4 (08:53→22:18)
[2016-09-22] MEDS: LACTULOSE SYRUP 20 GM/30 ML CUP PO SCH (08:53)
[2016-09-22] MEDS: NYSTATIN 100,000 U/GM PWD 15 GM BTL TOPICAL SCH ×2 (08:54→22:21)
[2016-09-22] MEDS: ARTIFICIAL TEARS OPTH SOLN 15 ML BTL EACH EYE SCH ×2 (08:54→22:20)
[2016-09-22] MEDS: ASPIRIN 325 MG TAB TUBE SCH (08:54)
[2016-09-22] MEDS: BACITRACIN TOP OINT 15 GM TUBE TOP SCH ×2 (08:55→22:21)
[2016-09-22] MEDS: SODIUM CHLORIDE 0.65% NASAL SPRAY 45 ML BTL NASAL SCH ×2 (08:55→22:20)
[2016-09-22] MEDS: PANTOPRAZOLE SODIUM 40 MG VIAL IV PUSH SCH ×2 (08:56→22:17)
[2016-09-22 10:07] LABS: AUTOMATED NEUTROPHIL # 3.6 TH/MM3 (1.8-7.7); BASOPHIL # 0.1 TH/MM3 (0-0.2); BASOPHIL % 1.2 % (0.0-2.0); EOSINOPHIL # 0.2 TH/MM3 (0-0.4); EOSINOPHIL % 4.3 % (0.0-4.0); HEMATOCRIT 30.4 % (39.0-51.0); LYMPH % 24.2 % (9.0-44.0); LYMPHOCYTE # 1.4 TH/MM3 (1.0-4.8); MEAN CELL VOLUME 75.5 FL (80.0-100.0); MEAN CORPUSCULAR HGB CONC 31.8 % (32.0-36.0); MONO % 6.4 % (0.0-8.0); NEUT % 63.9 % (16.0-70.0); PLATELET COUNT 221 TH/MM3 (150-450); RED BLOOD COUNT 4.03 MIL/MM3 (4.50-5.90); RED CELL DISTRIBUTION WIDTH 19.5 % (11.6-17.2); WHITE BLOOD COUNT 5.7 TH/MM3 (4.0-11.0)
[2016-09-22 10:14] LABS: HEMO FLAGS AUTO DIFF
[2016-09-22 10:28] LABS: POTASSIUM 4.1 MEQ/L (3.5-5.1)
[2016-09-22 10:46] LABS: PLATELET ESTIMATE SMEAR NORMAL (NORMAL); PLATELET MORPHOLOGY NORMAL (NORMAL); SCAN/DIFF AUTO DIFF CONFIRMED
[2016-09-22] MEDS: PARoxetine HCL SUSP 20 MG/10 ML UDC PEG SCH (18:16)
[2016-09-22] MEDS: SODIUM CHLORIDE 0.9% FLUSH 5 ML FLUSH IVF PRN (22:16)
--- NOTE | 2016-09-22 23:13 | HHI.PR ---
Subjective Remarks patient seen today around 1 PM. No acute changes. Discussed with nursing. Patient awake. Appears to deny pain. Appears comfortable. Nonverbal. Objective Vital Signs Date Time Temp Pulse Resp B/P Pulse Ox O2 Delivery O2 Flow Rate FiO2 09/22/16 21:21 97.6 97 20 125/77 99 09/22/16 21:05 99 T-piece 6.00 40 09/22/16 21:05 99 T-piece 6.00 40 09/22/16 16:00 96.8 86 20 115/63 98 09/22/16 12:00 96.6 82 20 100/63 98 09/22/16 09:46 98 T-piece 40 09/22/16 08:43 92 09/22/16 08:00 97.6 84 18 122/76 98 09/22/16 07:46 99 T-Piece 28 09/22/16 04:12 96.7 91 20 118/75 98 09/22/16 00:26 97.6 95 20 97/69 100 09/21/16 23:30 100 T-Piece 28 I/O 09/21/16 09/21/16 09/21/16 09/22/16 09/22/16 09/22/16 07:00 15:00 23:00 07:00 15:00 23:00 Intake Total 610 ml Output Total 850 ml 800 ml 1000 ml 850 ml 600 ml Balance -850 ml -800 ml -1000 ml -850 ml -600 ml 610 ml Tube Feeding 610 ml Output Urine Total 850 ml 800 ml 1000 ml 850 ml 600 ml # Bowel Movements 1 3 3 Result Diagram: 09/22/16 0907 09/22/16 0907 Procedures 01/02/16 PEG placement 01/02/16 tracheostomy 07/22/2016 Wide excision of sacral skin wound, biopsy of the cavity lining and debridement. PEG tube replacement 07/29/16 Objective Remarks GENERAL: lying in bed. awake. Eyes open. Nonverbal. Appears to deny pain. SKIN: Warm and dry. HEAD: Normocephalic. EYES: No scleral icterus. No injection or drainage. NECK: Supple, trachea midline. No JVD . CARDIOVASCULAR: Regular rate and rhythm without murmurs, gallops, or rubs. RESPIRATORY: Breath sounds equal bilaterally. No accessory muscle use. GASTROINTESTINAL: Abdomen soft, non-tender, nondistended. PEG tube in place. No surrounding erythema as before. MUSCULOSKELETAL: No cyanosis, or edema. BACK: Nontender without obvious deformity. No CVA tenderness. A/P Assessment and Plan 09/22/16. Patient seen and examined. again, no acute changes. CBC, electrolytes stable. Continue to monitor. 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 Tracks with his eyes. Continue Keppra for seizure prophylaxis. PT/OT signed off as patient is unable to participate. -Need placement. Difficult. Appreciate case management assistance. //Chronic respiratory failure -Secondary to CVA. Status post tracheostomy. Continue pulmonary toilet and bronchodilators as needed. Continue trach care, suctioning. Levsin as needed. -Pulmonary currently following . Appreciate assistance. //Atrial fibrillation -Continue rate control with Cardizem and metoprolol. Echocardiogram in November 2015 shows preserved ejection fraction. Coumadin discontinued secondary to bleeding. Rate controlled. Continue aspirin and prophylactic heparin dose. //History of non-Hodgkin's lymphoma - Status post brain biopsy on December 13 by neurosurgery. Pathology consistent with acute infarct without evidence of lymphoma. Oncology has signed all //Diabetes mellitus -Hemoglobin A1c is 7. Continue Levemir. Monitor Accu-Cheks and cover with sliding scale insulin. Overall blood sugar continues well controlled. //Decubitus ulcer stage IV -Continue wound care, twice-daily dressing changes. Wound care recommendations. Continue pressure relief measures including turning and positioning. Patient's family has declined a diverting colostomy. Previous Wound culture growing Klebsiella. on Augmentin. Status post wide excision of sacral skin and biopsy of the cavity lining with debridement on 07/22/16. Continue scheduled [place] every 8 hours. -Continue to monitor for pain. //Gastric ulcer, reflux esophagitis - EGD on 07/30/16 showed gastric ulcers. Appreciate GI recommendations. Continue PPI. H&H stable as of last recheck.. //UTI pseudomonas aeruginosa treated with abx -Resolved. - Repeat Ucx 08/28/16 negative. //Constipation: -Having regular bowel movements. -on lactulose. Monitor. //FEN: Continue Nepro tube feeds with free water flushes. Appreciate dietary assistance. //DVT prophylaxis: SCDs/ subq heparin. Discharge Planning appreciate case management assistance. Ramiro Rucker MD 5, 2017 23:13
[2016-09-23] VITALS (10 sets, daily range): BP systolic 92–123; BP diastolic 55–79; PULSE 74–90; RESP 16–22; TEMP 96.5–98.1; O2SAT 96–100
[2016-09-23] MEDS: AMOXICILLIN (TRIHYDRATE) 500 MG CAP PO SCH ×3 (06:18→20:52)
[2016-09-23] MEDS: HEPARIN SODIUM - SQ 10,000 UNITS/ML VIAL SQ SCH ×3 (06:18→20:52)
[2016-09-23] MEDS: FREE WATER TUBE SCH ×6 (06:19→20:00)
[2016-09-23] MEDS: INSULIN ASPART SUPPLEMENTAL SCALE SQ SCH (06:19)
[2016-09-23] MEDS: ACETIC ACID 0.25% SOLN 1000 ML IRR BTL IRRIGATION SCH ×3 (06:19→20:54)
[2016-09-23] MEDS: ACETAMINOPHEN/HYDROcodone 325 MG/5 MG TAB PO SCH ×4 (06:19→20:53)
[2016-09-23] MEDS: LACTULOSE SYRUP 20 GM/30 ML CUP PO SCH (09:01)
[2016-09-23] MEDS: POTASSIUM CHLORIDE 25 MEQ EFFERVESCENT TAB TUBE SCH (09:01)
[2016-09-23] MEDS: PANTOPRAZOLE SODIUM 40 MG VIAL IV PUSH SCH ×2 (09:01→20:54)
[2016-09-23] MEDS: DOCUSATE SODIUM 100 MG/10 ML UDC PO SCH ×2 (09:01→20:51)
[2016-09-23] MEDS: levETIRAcetam 500 MG/5 ML UDC TUBE SCH ×2 (09:01→20:51)
[2016-09-23] MEDS: SENNOSIDES 8.6 MG TAB PO SCH (09:01)
[2016-09-23] MEDS: ASPIRIN 325 MG TAB TUBE SCH (09:01)
[2016-09-23] MEDS: ARTIFICIAL TEARS OPTH SOLN 15 ML BTL EACH EYE SCH ×2 (09:02→20:54)
[2016-09-23] MEDS: SODIUM CHLORIDE 0.65% NASAL SPRAY 45 ML BTL NASAL SCH ×2 (09:02→20:54)
[2016-09-23] MEDS: DILTIAZEM HCL 30 MG TAB PEG SCH ×4 (09:02→20:54)
[2016-09-23] MEDS: LACTOBACILLUS ACIDOPHILUS TAB PEG SCH ×3 (09:02→18:15)
[2016-09-23] MEDS: METOPROLOL TARTRATE 50 MG TAB PO SCH ×2 (09:02→20:53)
[2016-09-23] MEDS: BACITRACIN TOP OINT 15 GM TUBE TOP SCH ×2 (09:02→20:53)
[2016-09-23] MEDS: NYSTATIN 100,000 U/GM PWD 15 GM BTL TOPICAL SCH ×2 (09:03→20:54)
--- NOTE | 2016-09-23 16:26 | HHI.PR ---
Subjective Remarks no change on o2 , o2 SAT 95% trach ok Objective Vital Signs Date Time Temp Pulse Resp B/P Pulse Ox O2 Delivery O2 Flow Rate FiO2 09/23/16 12:00 98.1 81 18 106/72 96 09/23/16 11:22 81 09/23/16 09:50 100 T-piece 40 09/23/16 09:00 118/74 09/23/16 08:00 98.1 81 22 92/55 100 09/23/16 05:27 96.5 79 21 120/68 97 09/23/16 03:03 100 T-Piece 28 09/23/16 03:00 97 T-piece 40 09/23/16 00:12 97.1 74 22 120/61 100 09/22/16 21:21 97.6 97 20 125/77 99 09/22/16 21:05 99 T-piece 6.00 40 09/22/16 21:05 99 T-piece 6.00 40 I/O 09/22/16 09/22/16 09/22/16 09/23/16 09/23/16 09/23/16 07:00 15:00 23:00 07:00 15:00 23:00 Intake Total 610 ml Output Total 850 ml 600 ml 900 ml 1250 ml Balance -850 ml -600 ml 610 ml -900 ml -1250 ml Tube Feeding 610 ml Output Urine Total 850 ml 600 ml 900 ml 1250 ml # Bowel Movements 3 1 Result Diagram: 09/22/16 0907 09/22/16 0907 Procedures 01/02/16 PEG placement 01/02/16 tracheostomy 07/22/2016 Wide excision of sacral skin wound, biopsy of the cavity lining and debridement. PEG tube replacement 07/29/16 Objective Remarks GENERAL: SKIN: Warm and dry. HEAD: Atraumatic. Normocephalic. EYES: Pupils equal and round. No scleral icterus. No injection or drainage. ENT: No nasal bleeding or discharge. Mucous membranes pink and moist. NECK: Trachea midline. No JVD. TRACH. [place] CARDIOVASCULAR: Regular rate and rhythm. RESPIRATORY: No accessory muscle use. Clear to auscultation. Breath sounds equal bilaterally. GASTROINTESTINAL: Abdomen soft, non-tender, nondistended. Hepatic and splenic margins not palpable. MUSCULOSKELETAL: Extremities without clubbing, cyanosis, or edema. No obvious deformities. NEUROLOGICAL: Awake and alert. No obvious cranial nerve deficits. Motor grossly within normal limits. Five out of 5 muscle strength in the arms and legs. Normal speech. PSYCHIATRIC: Appropriate mood and affect; insight and judgment normal. Assessment and Plan Assessment and Plan impression respiratory failure CVA S/P TRACHEOSTOMY PLAN O2 NEEDED PULM. TOILET Brandon Taylor MD Sep 23, 2016 16:26
[2016-09-23] MEDS: PARoxetine HCL SUSP 20 MG/10 ML UDC PEG SCH (18:15)
[2016-09-23] MEDS: INSULIN DETEMIR 100 UNITS/ML VIAL SQ SCH (20:53)
--- NOTE | 2016-09-23 23:52 | HHI.PR ---
Subjective Remarks no acute changes per nursing. Patient sleeping, opens eyes for exam. Appears to deny pain Objective Vital Signs Date Time Temp Pulse Resp B/P Pulse Ox O2 Delivery O2 Flow Rate FiO2 09/23/16 21:13 97.5 90 20 123/79 99 09/23/16 16:00 96.5 81 16 111/69 98 09/23/16 12:00 98.1 81 18 106/72 96 09/23/16 11:22 81 09/23/16 09:50 100 T-piece 40 09/23/16 09:00 118/74 09/23/16 08:00 98.1 81 22 92/55 100 09/23/16 05:27 96.5 79 21 120/68 97 09/23/16 03:03 100 T-Piece 28 09/23/16 03:00 97 T-piece 40 09/23/16 00:12 97.1 74 22 120/61 100 I/O 09/22/16 09/22/16 09/22/16 09/23/16 09/23/16 09/23/16 07:00 15:00 23:00 07:00 15:00 23:00 Intake Total 610 ml Output Total 850 ml 600 ml 900 ml 1250 ml 200 ml Balance -850 ml -600 ml 610 ml -900 ml -1250 ml -200 ml Tube Feeding 610 ml Output Urine Total 850 ml 600 ml 900 ml 1250 ml 200 ml # Bowel Movements 3 1 Result Diagram: 09/22/16 0907 09/22/16 0907 Procedures 01/02/16 PEG placement 01/02/16 tracheostomy 07/22/2016 Wide excision of sacral skin wound, biopsy of the cavity lining and debridement. PEG tube replacement 07/29/16 Objective Remarks GENERAL: lying in bed. sleeping, wakes up for exam. Eyes open. Nonverbal. Appears to deny pain. SKIN: Warm and dry. HEAD: Normocephalic. EYES: No scleral icterus. No injection or drainage. NECK: Supple, trachea midline. No JVD . CARDIOVASCULAR: Regular rate and rhythm without murmurs, gallops, or rubs. RESPIRATORY: Breath sounds equal bilaterally. No accessory muscle use. GASTROINTESTINAL: Abdomen soft, non-tender, nondistended. PEG tube in place. No surrounding erythema as before. MUSCULOSKELETAL: No cyanosis, or edema. wound VAC in place as before. BACK: Nontender without obvious deformity. No CVA tenderness. A/P Assessment and Plan 09/23/16. Patient seen and examined. again, no acute changes. continues on wound VAC as per wound care. Appreciate assistance.Continue to monitor. 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 Tracks with his eyes. Continue Keppra for seizure prophylaxis. PT/OT signed off as patient is unable to participate. -Need placement. Difficult. Appreciate case management assistance. //Chronic respiratory failure -Secondary to CVA. Status post tracheostomy. Continue pulmonary toilet and bronchodilators as needed. Continue trach care, suctioning. Levsin as needed. -Pulmonary currently following . Appreciate assistance. //Atrial fibrillation -Continue rate control with Cardizem and metoprolol. Echocardiogram in November 2015 shows preserved ejection fraction. Coumadin discontinued secondary to bleeding. Rate controlled. Continue aspirin and prophylactic heparin dose. //History of non-Hodgkin's lymphoma - Status post brain biopsy on December 13 by neurosurgery. Pathology consistent with acute infarct without evidence of lymphoma. Oncology has signed all //Diabetes mellitus -Hemoglobin A1c is 7. Continue Levemir. Monitor Accu-Cheks and cover with sliding scale insulin. Overall blood sugar continues well controlled. //Decubitus ulcer stage IV -Continue wound care, twice-daily dressing changes. Wound care recommendations. Continue pressure relief measures including turning and positioning. Patient's family has declined a diverting colostomy. Previous Wound culture growing Klebsiella. on Augmentin. Status post wide excision of sacral skin and biopsy of the cavity lining with debridement on 07/22/16. Continue scheduled [place] every 8 hours. -Continue to monitor for pain. //Gastric ulcer, reflux esophagitis - EGD on 07/30/16 showed gastric ulcers. Appreciate GI recommendations. Continue PPI. H&H stable as of last recheck.. //UTI pseudomonas aeruginosa treated with abx -Resolved. - Repeat Ucx 08/28/16 negative. //Constipation: -Having regular bowel movements. -on lactulose. Monitor. //FEN: Continue Nepro tube feeds with free water flushes. Appreciate dietary assistance. //DVT prophylaxis: SCDs/ subq heparin. Discharge Planning appreciate case management assistance. Ramiro Rucker MD Sep 23, 2016 23:52
[2016-09-24] VITALS (10 sets, daily range): BP systolic 114–136; BP diastolic 67–84; PULSE 82–97; RESP 18–22; TEMP 96.5–98.8; O2SAT 97–100
[2016-09-24] MEDS: FREE WATER TUBE SCH ×6 (04:00→20:00)
[2016-09-24] MEDS: AMOXICILLIN (TRIHYDRATE) 500 MG CAP PO SCH ×3 (05:35→22:31)
[2016-09-24] MEDS: ACETAMINOPHEN/HYDROcodone 325 MG/5 MG TAB PO SCH ×3 (05:36→22:31)
[2016-09-24] MEDS: ACETIC ACID 0.25% SOLN 1000 ML IRR BTL IRRIGATION SCH ×3 (05:36→22:00)
[2016-09-24] MEDS: HEPARIN SODIUM - SQ 10,000 UNITS/ML VIAL SQ SCH ×3 (05:36→22:30)
[2016-09-24] MEDS: INSULIN ASPART SUPPLEMENTAL SCALE SQ SCH (07:00)
[2016-09-24] MEDS: MORPHINE SULFATE 4 MG/ML INJ IV PUSH PRN (08:34)
[2016-09-24] MEDS: ARTIFICIAL TEARS OPTH SOLN 15 ML BTL EACH EYE SCH ×2 (09:00→21:00)
[2016-09-24] MEDS: SENNOSIDES 8.6 MG TAB PO SCH (09:00)
[2016-09-24] MEDS: NYSTATIN 100,000 U/GM PWD 15 GM BTL TOPICAL SCH ×2 (09:00→21:00)
[2016-09-24] MEDS: BACITRACIN TOP OINT 15 GM TUBE TOP SCH ×2 (09:00→21:00)
[2016-09-24] MEDS: SODIUM CHLORIDE 0.65% NASAL SPRAY 45 ML BTL NASAL SCH ×2 (09:00→21:00)
[2016-09-24] MEDS: POTASSIUM CHLORIDE 25 MEQ EFFERVESCENT TAB TUBE SCH (09:07)
[2016-09-24] MEDS: DOCUSATE SODIUM 100 MG/10 ML UDC PO SCH ×2 (09:07→22:30)
[2016-09-24] MEDS: LACTOBACILLUS ACIDOPHILUS TAB PEG SCH ×3 (09:07→18:28)
[2016-09-24] MEDS: METOPROLOL TARTRATE 50 MG TAB PO SCH ×2 (09:07→22:31)
[2016-09-24] MEDS: ASPIRIN 325 MG TAB TUBE SCH (09:07)
[2016-09-24] MEDS: levETIRAcetam 500 MG/5 ML UDC TUBE SCH ×2 (09:07→22:31)
[2016-09-24] MEDS: LACTULOSE SYRUP 20 GM/30 ML CUP PO SCH (09:07)
[2016-09-24] MEDS: DILTIAZEM HCL 30 MG TAB PEG SCH ×4 (09:07→22:31)
[2016-09-24] MEDS: PANTOPRAZOLE SODIUM 40 MG VIAL IV PUSH SCH ×2 (09:07→22:34)
--- NOTE | 2016-09-24 15:43 | HHI.PR ---
Subjective Remarks no change on o2 , o2 SAT 95% trach ok Objective Vital Signs Date Time Temp Pulse Resp B/P Pulse Ox O2 Delivery O2 Flow Rate FiO2 09/24/16 12:00 96.9 84 18 114/67 99 09/24/16 08:25 98 T-piece 6.00 28 09/24/16 08:00 96.9 97 18 115/74 99 09/24/16 05:47 96.7 93 22 136/84 100 09/24/16 01:21 96.5 89 20 123/74 99 09/23/16 21:13 97.5 90 20 123/79 99 09/23/16 16:00 96.5 81 16 111/69 98 I/O 09/23/16 09/23/16 09/23/16 09/24/16 09/24/16 09/24/16 07:00 15:00 23:00 07:00 15:00 23:00 Output Total 900 ml 1250 ml 200 ml 800 ml 750 ml Balance -900 ml -1250 ml -200 ml -800 ml -750 ml Output Urine Total 900 ml 1250 ml 200 ml 800 ml 750 ml # Bowel Movements 1 1 Result Diagram: 09/22/16 0907 09/22/16 0907 Procedures 01/02/16 PEG placement 01/02/16 tracheostomy 07/22/2016 Wide excision of sacral skin wound, biopsy of the cavity lining and debridement. PEG tube replacement 07/29/16 Objective Remarks GENERAL: SKIN: Warm and dry. HEAD: Atraumatic. Normocephalic. EYES: Pupils equal and round. No scleral icterus. No injection or drainage. ENT: No nasal bleeding or discharge. Mucous membranes pink and moist. NECK: Trachea midline. No JVD. TRACH. [place] CARDIOVASCULAR: Regular rate and rhythm. RESPIRATORY: No accessory muscle use. Clear to auscultation. Breath sounds equal bilaterally. GASTROINTESTINAL: Abdomen soft, non-tender, nondistended. Hepatic and splenic margins not palpable. MUSCULOSKELETAL: Extremities without clubbing, cyanosis, or edema. No obvious deformities. NEUROLOGICAL: Awake and alert. No obvious cranial nerve deficits. Motor grossly within normal limits. Five out of 5 muscle strength in the arms and legs. Normal speech. PSYCHIATRIC: Appropriate mood and affect; insight and judgment normal. Assessment and Plan Assessment and Plan impression respiratory failure CVA S/P TRACHEOSTOMY PLAN O2 NEEDED PULM. TOILET Brandon Taylor MD Sep 24, 2016 15:43
[2016-09-24] MEDS: PARoxetine HCL SUSP 20 MG/10 ML UDC PEG SCH (18:28)
[2016-09-24] MEDS: INSULIN DETEMIR 100 UNITS/ML VIAL SQ SCH (21:00)
[2016-09-24] MEDS: KETOCONAZOLE 2% CREAM 15 GM TOPICAL SCH (21:00)
--- NOTE | 2016-09-24 23:42 | HHI.PR ---
Subjective Remarks patient seen today around 10 AM. No acute changes. Discussed with nursing. Objective Vital Signs Date Time Temp Pulse Resp B/P Pulse Ox O2 Delivery O2 Flow Rate FiO2 09/24/16 20:08 98.8 84 18 114/67 97 09/24/16 18:21 99 T-piece 6.00 28 09/24/16 18:18 93 09/24/16 16:00 97.1 82 18 124/72 99 09/24/16 12:00 96.9 84 18 114/67 99 09/24/16 08:25 98 T-piece 6.00 28 09/24/16 08:00 96.9 97 18 115/74 99 09/24/16 05:47 96.7 93 22 136/84 100 09/24/16 01:21 96.5 89 20 123/74 99 I/O 09/23/16 09/23/16 09/23/16 09/24/16 09/24/16 09/24/16 07:00 15:00 23:00 07:00 15:00 23:00 Output Total 900 ml 1250 ml 200 ml 800 ml 750 ml 200 ml Balance -900 ml -1250 ml -200 ml -800 ml -750 ml -200 ml Output Urine Total 900 ml 1250 ml 200 ml 800 ml 750 ml 200 ml # Bowel Movements 1 1 Result Diagram: 09/22/16 0907 09/22/16 0907 Procedures 01/02/16 PEG placement 01/02/16 tracheostomy 07/22/2016 Wide excision of sacral skin wound, biopsy of the cavity lining and debridement. PEG tube replacement 07/29/16 Objective Remarks GENERAL: lying in bed. sleeping, wakes up for exam. Eyes open. Nonverbal. Appears to deny pain. SKIN: Warm and dry.Patient does have small 2 x 3 cm indurated rash without any broken skin on the right forearm underneath medical identification band. HEAD: Normocephalic. EYES: No scleral icterus. No injection or drainage. NECK: Supple, trachea midline. No JVD . CARDIOVASCULAR: Regular rate and rhythm without murmurs, gallops, or rubs. RESPIRATORY: Breath sounds equal bilaterally. No accessory muscle use. GASTROINTESTINAL: Abdomen soft, non-tender, nondistended. PEG tube in place. No surrounding erythema as before. MUSCULOSKELETAL: No cyanosis, or edema. wound VAC in place as before. BACK: Nontender without obvious deformity. No CVA tenderness. A/P Assessment and Plan 09/24/16. Patient seen and examined. no acute changes. Small fungal rash right forearm. ketoconazole cream ordered. 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 Tracks with his eyes. Continue Keppra for seizure prophylaxis. PT/OT signed off as patient is unable to participate. -Need placement. Difficult. Appreciate case management assistance. //Chronic respiratory failure -Secondary to CVA. Status post tracheostomy. Continue pulmonary toilet and bronchodilators as needed. Continue trach care, suctioning. Levsin as needed. -Pulmonary currently following . Appreciate assistance. //Atrial fibrillation -Continue rate control with Cardizem and metoprolol. Echocardiogram in November 2015 shows preserved ejection fraction. Coumadin discontinued secondary to bleeding. Rate controlled. Continue aspirin and prophylactic heparin dose. //History of non-Hodgkin's lymphoma - Status post brain biopsy on December 13 by neurosurgery. Pathology consistent with acute infarct without evidence of lymphoma. Oncology has signed all //Diabetes mellitus -Hemoglobin A1c is 7. Continue Levemir. Monitor Accu-Cheks and cover with sliding scale insulin. Overall blood sugar continues well controlled. //Decubitus ulcer stage IV -Continue wound care, twice-daily dressing changes. Wound care recommendations. Continue pressure relief measures including turning and positioning. Patient's family has declined a diverting colostomy. Previous Wound culture growing Klebsiella. on Augmentin. Status post wide excision of sacral skin and biopsy of the cavity lining with debridement on 07/22/16. Continue scheduled [place] every 8 hours. -Continue to monitor for pain. //Gastric ulcer, reflux esophagitis - EGD on 07/30/16 showed gastric ulcers. Appreciate GI recommendations. Continue PPI. H&H stable as of last recheck.. //UTI pseudomonas aeruginosa treated with abx -Resolved. - Repeat Ucx 08/28/16 negative. //Constipation: -Having regular bowel movements. -on lactulose. Monitor. //FEN: Continue Nepro tube feeds with free water flushes. Appreciate dietary assistance. //DVT prophylaxis: SCDs/ subq heparin. Discharge Planning appreciate case management assistance. Ramiro Rucker MD Sep 24, 2016 23:42
[2016-09-25] VITALS (9 sets, daily range): BP systolic 110–136; BP diastolic 68–71; PULSE 71–86; RESP 19–22; TEMP 95.6–99.4; O2SAT 96–100
[2016-09-25] MEDS: FREE WATER TUBE SCH ×7 (04:00→23:49)
[2016-09-25] MEDS: ACETAMINOPHEN/HYDROcodone 325 MG/5 MG TAB PO SCH ×3 (05:34→23:42)
[2016-09-25] MEDS: HEPARIN SODIUM - SQ 10,000 UNITS/ML VIAL SQ SCH ×3 (05:37→23:41)
[2016-09-25] MEDS: ACETIC ACID 0.25% SOLN 1000 ML IRR BTL IRRIGATION SCH ×3 (05:37→23:42)
[2016-09-25] MEDS: AMOXICILLIN (TRIHYDRATE) 500 MG CAP PO SCH ×3 (05:37→23:41)
[2016-09-25] MEDS: INSULIN ASPART SUPPLEMENTAL SCALE SQ SCH (07:00)
[2016-09-25] MEDS: ASPIRIN 325 MG TAB TUBE SCH (08:34)
[2016-09-25] MEDS: LACTOBACILLUS ACIDOPHILUS TAB PEG SCH ×3 (08:35→18:11)
[2016-09-25] MEDS: POTASSIUM CHLORIDE 25 MEQ EFFERVESCENT TAB TUBE SCH (08:35)
[2016-09-25] MEDS: levETIRAcetam 500 MG/5 ML UDC TUBE SCH ×2 (08:35→23:42)
[2016-09-25] MEDS: LACTULOSE SYRUP 20 GM/30 ML CUP PO SCH (08:35)
[2016-09-25] MEDS: DILTIAZEM HCL 30 MG TAB PEG SCH ×4 (08:35→23:42)
[2016-09-25] MEDS: METOPROLOL TARTRATE 50 MG TAB PO SCH ×2 (08:35→23:41)
[2016-09-25] MEDS: DOCUSATE SODIUM 100 MG/10 ML UDC PO SCH ×2 (08:35→23:41)
[2016-09-25] MEDS: SENNOSIDES 8.6 MG TAB PO SCH (08:36)
[2016-09-25] MEDS: SODIUM CHLORIDE 0.65% NASAL SPRAY 45 ML BTL NASAL SCH ×2 (08:37→21:00)
[2016-09-25] MEDS: ARTIFICIAL TEARS OPTH SOLN 15 ML BTL EACH EYE SCH ×2 (08:37→23:45)
[2016-09-25] MEDS: KETOCONAZOLE 2% CREAM 15 GM TOPICAL SCH ×2 (10:20→23:46)
[2016-09-25] MEDS: PANTOPRAZOLE SODIUM 40 MG VIAL IV PUSH SCH ×2 (10:20→23:41)
[2016-09-25] MEDS: NYSTATIN 100,000 U/GM PWD 15 GM BTL TOPICAL SCH ×2 (15:00→23:45)
[2016-09-25] MEDS: BACITRACIN TOP OINT 15 GM TUBE TOP SCH ×2 (15:00→23:43)
[2016-09-25] MEDS: SENNOSIDES SYRUP 8.8 MG/5 ML CUP PO SCH (18:11)
[2016-09-25] MEDS: PARoxetine HCL SUSP 20 MG/10 ML UDC PEG SCH (18:12)
[2016-09-25 21:53] LABS: BICARBONATE 28.7 MEQ/L (21.0-32.0); MAGNESIUM 1.9 MG/DL (1.5-2.5)
[2016-09-25] MEDS: INSULIN DETEMIR 100 UNITS/ML VIAL SQ SCH (23:40)
--- NOTE | 2016-09-25 23:45 | HHI.PR ---
Subjective Remarks patient seen today around [place]. No acute changes per nursing. Family concerned about bowel movements hearted than usual. Senna added at bedtime in addition to morning Objective Vital Signs Date Time Temp Pulse Resp B/P Pulse Ox O2 Delivery O2 Flow Rate FiO2 09/25/16 20:00 96.5 83 22 110/70 96 09/25/16 17:51 97 T-piece 6.00 28 09/25/16 16:16 97.4 78 20 116/69 100 09/25/16 12:18 95.6 78 20 117/69 100 09/25/16 10:35 71 09/25/16 09:40 97 T-piece 28 09/25/16 09:40 98 T-piece 28 09/25/16 07:51 96.8 72 20 136/71 100 09/25/16 04:19 97.4 86 19 118/68 100 09/25/16 00:16 99.4 83 19 110/71 97 I/O 09/24/16 09/24/16 09/24/16 09/25/16 09/25/16 09/25/16 07:00 15:00 23:00 07:00 15:00 23:00 Output Total 800 ml 750 ml 200 ml 750 ml 650 ml 400 ml Balance -800 ml -750 ml -200 ml -750 ml -650 ml -400 ml Output Urine Total 800 ml 750 ml 200 ml 750 ml 650 ml 400 ml # Bowel Movements 1 0 Result Diagram: 09/22/16 0907 09/25/16 2103 Procedures 01/02/16 PEG placement 01/02/16 tracheostomy 07/22/2016 Wide excision of sacral skin wound, biopsy of the cavity lining and debridement. PEG tube replacement 07/29/16 Objective Remarks GENERAL: lying in bed. appears to be awake. Eyes open. Nonverbal. Appears to deny pain. SKIN: Warm and dry.Patient does have small 2 x 3 cm indurated rash without any broken skin on the right forearm. Improving. HEAD: Normocephalic. EYES: No scleral icterus. No injection or drainage. NECK: Supple, trachea midline. No JVD . CARDIOVASCULAR: Regular rate and rhythm without murmurs, gallops, or rubs. RESPIRATORY: Breath sounds equal bilaterally. No accessory muscle use. GASTROINTESTINAL: Abdomen soft, non-tender, nondistended. PEG tube in place. No surrounding erythema as before. MUSCULOSKELETAL: No cyanosis, or edema. wound VAC in place as before. BACK: Nontender without obvious deformity. No CVA tenderness. A/P Assessment and Plan 09/25/16. Patient seen and examined. no acute changes. Small fungal rash right forearmis improving with ketoconazole cream. for hard stool added senna at 4 PM in addition to morning. 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 Tracks with his eyes. Continue Keppra for seizure prophylaxis. PT/OT signed off as patient is unable to participate. -Need placement. Difficult. Appreciate case management assistance. //Chronic respiratory failure -Secondary to CVA. Status post tracheostomy. Continue pulmonary toilet and bronchodilators as needed. Continue trach care, suctioning. Levsin as needed. -Pulmonary currently following . Appreciate assistance. //Atrial fibrillation -Continue rate control with Cardizem and metoprolol. Echocardiogram in November 2015 shows preserved ejection fraction. Coumadin discontinued secondary to bleeding. Rate controlled. Continue aspirin and prophylactic heparin dose. //History of non-Hodgkin's lymphoma - Status post brain biopsy on December 13 by neurosurgery. Pathology consistent with acute infarct without evidence of lymphoma. Oncology has signed all //Diabetes mellitus -Hemoglobin A1c is 7. Continue Levemir. Monitor Accu-Cheks and cover with sliding scale insulin. Overall blood sugar continues well controlled. //Decubitus ulcer stage IV -Continue wound care, twice-daily dressing changes. Wound care recommendations. Continue pressure relief measures including turning and positioning. Patient's family has declined a diverting colostomy. Previous Wound culture growing Klebsiella. on Augmentin. Status post wide excision of sacral skin and biopsy of the cavity lining with debridement on 07/22/16. Continue scheduled [place] every 8 hours. -Continue to monitor for pain. //Gastric ulcer, reflux esophagitis - EGD on 07/30/16 showed gastric ulcers. Appreciate GI recommendations. Continue PPI. H&H stable as of last recheck.. //UTI pseudomonas aeruginosa treated with abx -Resolved. - Repeat Ucx 08/28/16 negative. //Constipation: -Having regular bowel movements. -on lactulose. Monitor. //FEN: Continue Nepro tube feeds with free water flushes. Appreciate dietary assistance. //DVT prophylaxis: SCDs/ subq heparin. Discharge Planning appreciate case management assistance. Ramiro Rucker MD Sep 25, 2016 23:45
[2016-09-26] VITALS (9 sets, daily range): BP systolic 102–133; BP diastolic 56–80; PULSE 80–91; RESP 20–24; TEMP 95.7–98.5; O2SAT 95–99
[2016-09-26] MEDS: FREE WATER TUBE SCH ×5 (04:00→20:00)
[2016-09-26] MEDS: AMOXICILLIN (TRIHYDRATE) 500 MG CAP PO SCH ×3 (06:02→22:51)
[2016-09-26] MEDS: ACETAMINOPHEN/HYDROcodone 325 MG/5 MG TAB PO SCH ×3 (06:02→22:51)
[2016-09-26] MEDS: HEPARIN SODIUM - SQ 10,000 UNITS/ML VIAL SQ SCH ×3 (06:03→22:52)
[2016-09-26] MEDS: INSULIN ASPART SUPPLEMENTAL SCALE SQ SCH (06:07)
[2016-09-26] MEDS: ACETIC ACID 0.25% SOLN 1000 ML IRR BTL IRRIGATION SCH ×3 (06:12→22:54)
[2016-09-26] MEDS: SODIUM CHLORIDE 0.65% NASAL SPRAY 45 ML BTL NASAL SCH ×2 (09:00→21:00)
[2016-09-26] MEDS: KETOCONAZOLE 2% CREAM 15 GM TOPICAL SCH ×2 (09:00→22:54)
[2016-09-26] MEDS: DILTIAZEM HCL 30 MG TAB PEG SCH ×4 (09:58→22:52)
[2016-09-26] MEDS: LACTULOSE SYRUP 20 GM/30 ML CUP PO SCH (09:58)
[2016-09-26] MEDS: ASPIRIN 325 MG TAB TUBE SCH (09:58)
[2016-09-26] MEDS: POTASSIUM CHLORIDE 25 MEQ EFFERVESCENT TAB TUBE SCH (09:58)
[2016-09-26] MEDS: LACTOBACILLUS ACIDOPHILUS TAB PEG SCH ×3 (09:58→16:10)
[2016-09-26] MEDS: METOPROLOL TARTRATE 50 MG TAB PO SCH ×2 (09:58→22:51)
[2016-09-26] MEDS: DOCUSATE SODIUM 100 MG/10 ML UDC PO SCH ×2 (09:58→22:51)
[2016-09-26] MEDS: levETIRAcetam 500 MG/5 ML UDC TUBE SCH ×2 (09:58→22:52)
[2016-09-26] MEDS: NYSTATIN 100,000 U/GM PWD 15 GM BTL TOPICAL SCH ×2 (09:59→22:53)
[2016-09-26] MEDS: ARTIFICIAL TEARS OPTH SOLN 15 ML BTL EACH EYE SCH ×2 (09:59→22:53)
[2016-09-26] MEDS: BACITRACIN TOP OINT 15 GM TUBE TOP SCH ×2 (09:59→22:53)
[2016-09-26] MEDS: PANTOPRAZOLE SODIUM 40 MG VIAL IV PUSH SCH ×2 (10:01→22:59)
[2016-09-26] MEDS: SENNOSIDES SYRUP 8.8 MG/5 ML CUP PO SCH (16:10)
--- NOTE | 2016-09-26 17:46 | HHI.PR ---
Subjective Remarks patient seen today around 2 PM. Awake, making eye contact. No acute changes per nursing. Family concerned that patient has not had a bowel movement. Dulcolax suppository ordered Arevalo. Replaced every 30 days. Objective Vital Signs Date Time Temp Pulse Resp B/P Pulse Ox O2 Delivery O2 Flow Rate FiO2 09/26/16 16:31 95.7 86 20 121/73 99 09/26/16 12:45 96.2 86 20 102/59 99 09/26/16 10:40 99 T-piece 6.00 28 09/26/16 10:40 99 T-piece 6.00 28 09/26/16 08:00 96.9 81 20 114/69 95 09/26/16 07:48 96.9 81 20 114/69 95 09/26/16 04:00 97.6 80 22 114/56 97 09/26/16 00:00 98.5 88 22 133/80 98 09/25/16 20:00 96.5 83 22 110/70 96 09/25/16 17:51 97 T-piece 6.00 28 I/O 09/25/16 09/25/16 09/25/16 09/26/16 09/26/16 09/26/16 07:00 15:00 23:00 07:00 15:00 23:00 Intake Total 1211 ml Output Total 750 ml 650 ml 400 ml 1000 ml 1200 ml Balance -750 ml -650 ml -400 ml -1000 ml 11 ml Tube Feeding 1011 ml Other 200 ml Output Urine Total 750 ml 650 ml 400 ml 1000 ml 1200 ml # Bowel Movements 0 0 0 Result Diagram: 09/22/16 0907 09/25/16 2103 Procedures 01/02/16 PEG placement 01/02/16 tracheostomy 07/22/2016 Wide excision of sacral skin wound, biopsy of the cavity lining and debridement. PEG tube replacement 07/29/16 Objective Remarks GENERAL: lying in bed. appears to be awake. Eyes open. Nonverbal. Appears to deny pain.exam unchanged from yesterday. SKIN: Warm and dry.Patient does have small 2 x 3 cm indurated rash without any broken skin on the right forearm. Improving. HEAD: Normocephalic. EYES: No scleral icterus. No injection or drainage. NECK: Supple, trachea midline. No JVD . CARDIOVASCULAR: Regular rate and rhythm without murmurs, gallops, or rubs. RESPIRATORY: Breath sounds equal bilaterally. No accessory muscle use. GASTROINTESTINAL: Abdomen soft, non-tender, nondistended. PEG tube in place. No surrounding erythema as before.positive bowel sounds. MUSCULOSKELETAL: No cyanosis, or edema. wound VAC in place as before. BACK: Nontender without obvious deformity. No CVA tenderness. A/P Assessment and Plan 09/26/16. Patient seen and examined. again with no acute changes. Small fungal rash right forearm continues improving with ketoconazole cream. -constipation. Suppository ordered. Replace Arevalo. 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 Tracks with his eyes. Continue Keppra for seizure prophylaxis. PT/OT signed off as patient is unable to participate. -Need placement. Difficult. Appreciate case management assistance. //Chronic respiratory failure -Secondary to CVA. Status post tracheostomy. Continue pulmonary toilet and bronchodilators as needed. Continue trach care, suctioning. Levsin as needed. -Pulmonary currently following . Appreciate assistance. //Atrial fibrillation -Continue rate control with Cardizem and metoprolol. Echocardiogram in November 2015 shows preserved ejection fraction. Coumadin discontinued secondary to bleeding. Rate controlled. Continue aspirin and prophylactic heparin dose. //History of non-Hodgkin's lymphoma - Status post brain biopsy on December 13 by neurosurgery. Pathology consistent with acute infarct without evidence of lymphoma. Oncology has signed all //Diabetes mellitus -Hemoglobin A1c is 7. Continue Levemir. Monitor Accu-Cheks and cover with sliding scale insulin. Overall blood sugar continues well controlled. //Decubitus ulcer stage IV -Continue wound care, twice-daily dressing changes. Wound care recommendations. Continue pressure relief measures including turning and positioning. Patient's family has declined a diverting colostomy. Previous Wound culture growing Klebsiella. on Augmentin. Status post wide excision of sacral skin and biopsy of the cavity lining with debridement on 07/22/16. Continue scheduled [place] every 8 hours. -Continue to monitor for pain. //Gastric ulcer, reflux esophagitis - EGD on 07/30/16 showed gastric ulcers. Appreciate GI recommendations. Continue PPI. H&H stable as of last recheck.. //UTI pseudomonas aeruginosa treated with abx -Resolved. - Repeat Ucx 08/28/16 negative. //Constipation: -Having regular bowel movements. -on lactulose. Monitor. //FEN: Continue Nepro tube feeds with free water flushes. Appreciate dietary assistance. //DVT prophylaxis: SCDs/ subq heparin. Discharge Planning appreciate case management assistance. Ramiro Rucker MD Sep 26, 2016 17:46
[2016-09-26] MEDS: PARoxetine HCL SUSP 20 MG/10 ML UDC PEG SCH (18:32)
[2016-09-26] MEDS: INSULIN DETEMIR 100 UNITS/ML VIAL SQ SCH (22:52)
[2016-09-27] VITALS: BP 126/74; PULSE 89; RESP 22; TEMP 98.4; O2SAT 98
[2016-09-27 04:00] VITALS: BP 111/58; PULSE 84; RESP 22; TEMP 96; O2SAT 97
[2016-09-27] MEDS: FREE WATER TUBE SCH ×6 (04:00→20:00)
[2016-09-27] MEDS: ACETAMINOPHEN/HYDROcodone 325 MG/5 MG TAB PO SCH ×3 (06:56→21:59)
[2016-09-27] MEDS: AMOXICILLIN (TRIHYDRATE) 500 MG CAP PO SCH ×3 (06:56→21:59)
[2016-09-27] MEDS: INSULIN ASPART SUPPLEMENTAL SCALE SQ SCH (07:00)
[2016-09-27] MEDS: HEPARIN SODIUM - SQ 10,000 UNITS/ML VIAL SQ SCH ×3 (07:02→21:59)
[2016-09-27] MEDS: ACETIC ACID 0.25% SOLN 1000 ML IRR BTL IRRIGATION SCH ×3 (07:02→22:00)
[2016-09-27 07:58] VITALS: BP 122/73; PULSE 60; RESP 20; TEMP 96; O2SAT 99
[2016-09-27] MEDS: LACTULOSE SYRUP 20 GM/30 ML CUP PO SCH (08:11)
[2016-09-27] MEDS: levETIRAcetam 500 MG/5 ML UDC TUBE SCH ×2 (08:11→21:58)
[2016-09-27] MEDS: DOCUSATE SODIUM 100 MG/10 ML UDC PO SCH ×2 (08:11→21:58)
[2016-09-27] MEDS: DILTIAZEM HCL 30 MG TAB PEG SCH ×4 (08:12→21:59)
[2016-09-27] MEDS: POTASSIUM CHLORIDE 25 MEQ EFFERVESCENT TAB TUBE SCH (08:12)
[2016-09-27] MEDS: METOPROLOL TARTRATE 50 MG TAB PO SCH ×2 (08:12→21:59)
[2016-09-27] MEDS: ASPIRIN 325 MG TAB TUBE SCH (08:12)
[2016-09-27] MEDS: LACTOBACILLUS ACIDOPHILUS TAB PEG SCH ×3 (08:13→18:00)
[2016-09-27] MEDS: ARTIFICIAL TEARS OPTH SOLN 15 ML BTL EACH EYE SCH ×2 (08:16→21:00)
[2016-09-27] MEDS: SODIUM CHLORIDE 0.65% NASAL SPRAY 45 ML BTL NASAL SCH ×2 (08:17→21:00)
[2016-09-27] MEDS: NYSTATIN 100,000 U/GM PWD 15 GM BTL TOPICAL SCH ×2 (08:18→21:00)
[2016-09-27] MEDS: BACITRACIN TOP OINT 15 GM TUBE TOP SCH ×2 (08:18→21:00)
[2016-09-27] MEDS: KETOCONAZOLE 2% CREAM 15 GM TOPICAL SCH ×2 (08:19→21:00)
[2016-09-27 09:44] VITALS: O2SAT 98
[2016-09-27] MEDS: PANTOPRAZOLE SODIUM 40 MG VIAL IV PUSH SCH ×2 (12:06→21:59)
--- NOTE | 2016-09-27 15:55 | HHI.PR ---
Subjective Remarks no change on o2 , o2 SAT 95% trach ok Objective Vital Signs Date Time Temp Pulse Resp B/P Pulse Ox O2 Delivery O2 Flow Rate FiO2 09/27/16 13:06 15 09/27/16 09:44 98 T-piece 6.00 28 09/27/16 07:58 96.0 60 20 122/73 99 09/27/16 04:00 96.0 84 22 111/58 97 09/27/16 01:15 T-Piece 28 09/27/16 00:00 98.4 89 22 126/74 98 09/26/16 23:00 86 09/26/16 20:00 97.5 91 24 119/63 97 09/26/16 16:31 95.7 86 20 121/73 99 I/O 09/26/16 09/26/16 09/26/16 09/27/16 09/27/16 09/27/16 07:00 15:00 23:00 07:00 15:00 23:00 Intake Total 1211 ml Output Total 1000 ml 1200 ml 200 ml 900 ml Balance -1000 ml 11 ml -200 ml -900 ml Tube Feeding 1011 ml Other 200 ml Output Urine Total 1000 ml 1200 ml 200 ml 900 ml # Bowel Movements 0 0 1 0 Result Diagram: 09/25/162102 Procedures 01/02/16 PEG placement 01/02/16 tracheostomy 07/22/2016 Wide excision of sacral skin wound, biopsy of the cavity lining and debridement. PEG tube replacement 07/29/16 Objective Remarks GENERAL: SKIN: Warm and dry. HEAD: Atraumatic. Normocephalic. EYES: Pupils equal and round. No scleral icterus. No injection or drainage. ENT: No nasal bleeding or discharge. Mucous membranes pink and moist. NECK: Trachea midline. No JVD. TRACH. [place] CARDIOVASCULAR: Regular rate and rhythm. RESPIRATORY: No accessory muscle use. Clear to auscultation. Breath sounds equal bilaterally. GASTROINTESTINAL: Abdomen soft, non-tender, nondistended. Hepatic and splenic margins not palpable. MUSCULOSKELETAL: Extremities without clubbing, cyanosis, or edema. No obvious deformities. NEUROLOGICAL: Awake and alert. No obvious cranial nerve deficits. Motor grossly within normal limits. Five out of 5 muscle strength in the arms and legs. Normal speech. PSYCHIATRIC: Appropriate mood and affect; insight and judgment normal. Assessment and Plan Assessment and Plan impression respiratory failure CVA S/P TRACHEOSTOMY PLAN O2 NEEDED PULM. TOFLORENCIAT Brandon Taylor MD Sep 27, 2016 15:55
[2016-09-27] MEDS: SENNOSIDES SYRUP 8.8 MG/5 ML CUP PO SCH (16:00)
[2016-09-27 16:17] VITALS: BP 118/71; PULSE 82; RESP 20; TEMP 100.4; O2SAT 98
[2016-09-27] MEDS: PARoxetine HCL SUSP 20 MG/10 ML UDC PEG SCH (19:00)
[2016-09-27 20:40] VITALS: BP 112/67; PULSE 96; RESP 20; TEMP 98.6; O2SAT 96
[2016-09-27] MEDS: INSULIN DETEMIR 100 UNITS/ML VIAL SQ SCH (22:00)
--- NOTE | 2016-09-27 22:47 | HHI.PR ---
Subjective Remarks no acute changes. pt apears to deny pain con resolved. lopez replaced per protocol. Objective Vital Signs Date Time Temp Pulse Resp B/P Pulse Ox O2 Delivery O2 Flow Rate FiO2 09/27/16 20:40 98.6 96 20 112/67 96 09/27/16 16:17 100.4 82 20 118/71 98 09/27/16 13:06 15 09/27/16 09:44 98 T-piece 6.00 28 09/27/16 07:58 96.0 60 20 122/73 99 09/27/16 04:00 96.0 84 22 111/58 97 09/27/16 01:15 T-Piece 28 09/27/16 00:00 98.4 89 22 126/74 98 09/26/16 23:00 86 I/O 09/26/16 09/26/16 09/26/16 09/27/16 09/27/16 09/27/16 07:00 15:00 23:00 07:00 15:00 23:00 Intake Total 1211 ml Output Total 1000 ml 1200 ml 200 ml 900 ml 875 ml Balance -1000 ml 11 ml -200 ml -900 ml -875 ml Tube Feeding 1011 ml Other 200 ml Output Urine Total 1000 ml 1200 ml 200 ml 900 ml 875 ml # Bowel Movements 0 0 1 0 1 Result Diagram: 09/25/162102 Procedures 01/02/16 PEG placement 01/02/16 tracheostomy 07/22/2016 Wide excision of sacral skin wound, biopsy of the cavity lining and debridement. PEG tube replacement 07/29/16 Objective Remarks GENERAL: lying in bed. appears to be awake. Eyes open. Nonverbal. Appears to deny pain. exam again unchnaged. SKIN: Warm and dry.Patient does have small 2 x 3 cm indurated rash without any broken skin on the right forearm. continues Improving. HEAD: Normocephalic. EYES: No scleral icterus. No injection or drainage. NECK: Supple, trachea midline. No JVD . CARDIOVASCULAR: Regular rate and rhythm without murmurs, gallops, or rubs. RESPIRATORY: Breath sounds equal bilaterally. No accessory muscle use. GASTROINTESTINAL: Abdomen soft, non-tender, nondistended. PEG tube in place. No surrounding erythema as before.positive bowel sounds. MUSCULOSKELETAL: No cyanosis, or edema. wound VAC in place as before. BACK: Nontender without obvious deformity. No CVA tenderness. A/P Assessment and Plan 09/27/16. Patient seen and examined. again with no acute changes. Small fungal rash right forearm continues improving with ketoconazole cream. -constipation resolved. lopez replaced 09/26.. 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 Tracks with his eyes. Continue Keppra for seizure prophylaxis. PT/OT signed off as patient is unable to participate. -Need placement. Difficult. Appreciate case management assistance. //Chronic respiratory failure -Secondary to CVA. Status post tracheostomy. Continue pulmonary toilet and bronchodilators as needed. Continue trach care, suctioning. Levsin as needed. -Pulmonary currently following . Appreciate assistance. //Atrial fibrillation -Continue rate control with Cardizem and metoprolol. Echocardiogram in November 2015 shows preserved ejection fraction. Coumadin discontinued secondary to bleeding. Rate controlled. Continue aspirin and prophylactic heparin dose. //History of non-Hodgkin's lymphoma - Status post brain biopsy on December 13 by neurosurgery. Pathology consistent with acute infarct without evidence of lymphoma. Oncology has signed all //Diabetes mellitus -Hemoglobin A1c is 7. Continue Levemir. Monitor Accu-Cheks and cover with sliding scale insulin. Overall blood sugar continues well controlled. //Decubitus ulcer stage IV -Continue wound care, twice-daily dressing changes. Wound care recommendations. Continue pressure relief measures including turning and positioning. Patient's family has declined a diverting colostomy. Previous Wound culture growing Klebsiella. on Augmentin. Status post wide excision of sacral skin and biopsy of the cavity lining with debridement on 07/22/16. Continue scheduled [place] every 8 hours. -Continue to monitor for pain. //Gastric ulcer, reflux esophagitis - EGD on 07/30/16 showed gastric ulcers. Appreciate GI recommendations. Continue PPI. H&H stable as of last recheck.. //UTI pseudomonas aeruginosa treated with abx -Resolved. - Repeat Ucx 08/28/16 negative. //Constipation: -Having regular bowel movements. -on lactulose. Monitor. //FEN: Continue Nepro tube feeds with free water flushes. Appreciate dietary assistance. //DVT prophylaxis: SCDs/ subq heparin. Discharge Planning appreciate case management assistance. Ramiro Rucker MD Sep 27, 2016 22:47
[2016-09-28] VITALS (7 sets, daily range): BP systolic 103–132; BP diastolic 67–79; PULSE 84–91; RESP 18–24; TEMP 93.3–97.6; O2SAT 92–100
[2016-09-28] MEDS: FREE WATER TUBE SCH ×7 (04:00→23:56)
[2016-09-28] MEDS: AMOXICILLIN (TRIHYDRATE) 500 MG CAP PO SCH ×3 (05:23→21:17)
[2016-09-28] MEDS: ACETIC ACID 0.25% SOLN 1000 ML IRR BTL IRRIGATION SCH ×3 (05:23→21:19)
[2016-09-28] MEDS: INSULIN ASPART SUPPLEMENTAL SCALE SQ SCH (05:23)
[2016-09-28] MEDS: ACETAMINOPHEN/HYDROcodone 325 MG/5 MG TAB PO SCH ×3 (05:23→21:17)
[2016-09-28] MEDS: HEPARIN SODIUM - SQ 10,000 UNITS/ML VIAL SQ SCH ×3 (05:23→21:18)
[2016-09-28] MEDS: DILTIAZEM HCL 30 MG TAB PEG SCH ×4 (07:19→21:17)
[2016-09-28] MEDS: METOPROLOL TARTRATE 50 MG TAB PO SCH ×2 (07:19→21:18)
[2016-09-28] MEDS: LACTOBACILLUS ACIDOPHILUS TAB PEG SCH ×3 (07:20→18:00)
[2016-09-28] MEDS: levETIRAcetam 500 MG/5 ML UDC TUBE SCH ×2 (07:20→21:18)
[2016-09-28] MEDS: DOCUSATE SODIUM 100 MG/10 ML UDC PO SCH ×2 (07:20→21:18)
[2016-09-28] MEDS: LACTULOSE SYRUP 20 GM/30 ML CUP PO SCH (07:20)
[2016-09-28] MEDS: ARTIFICIAL TEARS OPTH SOLN 15 ML BTL EACH EYE SCH ×2 (07:21→21:19)
[2016-09-28] MEDS: BACITRACIN TOP OINT 15 GM TUBE TOP SCH ×2 (07:21→21:19)
[2016-09-28] MEDS: SODIUM CHLORIDE 0.65% NASAL SPRAY 45 ML BTL NASAL SCH ×2 (07:21→21:00)
[2016-09-28] MEDS: NYSTATIN 100,000 U/GM PWD 15 GM BTL TOPICAL SCH ×2 (07:21→21:19)
[2016-09-28] MEDS: KETOCONAZOLE 2% CREAM 15 GM TOPICAL SCH ×2 (07:47→21:19)
[2016-09-28] MEDS: POTASSIUM CHLORIDE 25 MEQ EFFERVESCENT TAB TUBE SCH (09:00)
[2016-09-28] MEDS: ASPIRIN 325 MG TAB TUBE SCH (09:00)
--- NOTE | 2016-09-28 11:45 | HHI.PR ---
Subjective Remarks I have seen and examined this morning. Vitals are stable and he is afebrile. T piece in place, FiO2 28. Mother at bedside. Patient awakens and tracks. Blinks to indicate agreement. (Moira Macias MD R3) Objective Vital Signs Date Time Temp Pulse Resp B/P Pulse Ox O2 Delivery O2 Flow Rate FiO2 09/28/16 08:00 97.5 86 20 132/74 98 09/28/16 04:03 96.4 86 20 116/70 100 09/28/16 00:31 96.1 87 24 104/67 96 09/27/16 20:40 98.6 96 20 112/67 96 09/27/16 20:00 T-Piece 28 09/27/16 16:17 100.4 82 20 118/71 98 09/27/16 13:06 15 I/O 09/27/16 09/27/16 09/27/16 09/28/16 09/28/16 09/28/16 07:00 15:00 23:00 07:00 15:00 23:00 Intake Total 869 ml 877 ml Output Total 900 ml 875 ml 1450 ml Balance -900 ml -6 ml -573 ml IV Total 0 ml Tube Feeding 469 ml 477 ml Other 400 ml 400 ml Output Urine Total 900 ml 875 ml 1450 ml # Bowel Movements 0 1 (Moira Macias MD R3) Result Diagram: 09/25/16 2103 Imaging Last Impressions Tube Change 09/09/16 1011 Signed Impressions: Service Date/Time: Friday, September 09, 2016 11:27 - CONCLUSION: Occluded jejunal port of the GJ tube. Uncomplicated gastrojejunostomy tube exchange as above. Jonel Jones Jr., MD Abdomen X-Ray 08/31/16 0000 Signed Impressions: Service Date/Time: Wednesday, August 31, 2016 16:36 - CONCLUSION: 1. No acute findings. Mild constipation. Durga Dotson MD Chest X-Ray 08/23/16 0000 Signed Impressions: Service Date/Time: Tuesday, August 23, 2016 16:06 - CONCLUSION: Minimal basilar right lung opacity likely representing atelectasis. Kwasi James MD Abdomen/Pelvis CT 04/12/16 0000 Signed Impressions: Service Date/Time: Tuesday, April 12, 2016 20:52 - CONCLUSION: 1. 6.4 cm necrotic mass or abscess in the soft tissues posteriorly just below the sacrum associated with some bony destructive change of the lower most sacrum and coccyx with inflammatory changes extending into the ischiorectal fossa and into the presacral retroperitoneum predominantly on the left side. There is associated fairly marked mural thickening of the anal verge and rectum. 2. There is gastrostomy and Arevalo catheter present. Stable abdominal aortic aneurysm. Durga Dotson MD Head Magnetic Resonance Angiography 03/05/16 0000 Signed Impressions: Service Date/Time: Saturday, March 05, 2016 09:26 - CONCLUSION: Persistent high-grade subtotal occlusive stenotic lesions in the distal right vertebral artery and proximal basilar artery with significant improvement in flow and recanalization following initial presentation of thrombosis. Stable interstitial circulation without significant stenosis. 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 There is decreasing restricted diffusion and increasing loss of volume characteristic of a subacute to chronic infarct. No evidence of acute infarct, acute hemorrhage mass or edema. Ernesto Kulkarni MD Head CT 01/16/16 0000 Signed Impressions: Service Date/Time: Saturday, January 16, 2016 10:51 - CONCLUSION: No extensive low density in the brainstem colin more prominent in the right the left extending into the right middle cerebellar peduncle consistent with brainstem infarct nonhemorrhagic acute Wellington West MD Neck Magnetic Resonance Angiography 12/22/15 1445 Signed Impressions: Service Date/Time: Tuesday, December 22, 2015 09:22 - CONCLUSION: Variant origin of the left vertebral artery from the aortic arch. No evidence of carotid stenosis. Glen Zamora MD Head/Brain Mag Res Venography 12/22/15 0000 Signed Impressions: Service Date/Time: Tuesday, December 22, 2015 09:22 - CONCLUSION: Normal MRV. Jonel Jones Jr., MD Procedures 01/02/16 PEG placement 01/02/16 tracheostomy 07/22/2016 Wide excision of sacral skin wound, biopsy of the cavity lining and debridement. PEG tube replacement 07/29/16 Other Results GENERAL: lying in bed. appears to be awake. Eyes open. Nonverbal. Appears to deny pain. exam again unchnaged. SKIN: Warm and dry.Patient does have small 2 x 3 cm indurated rash without any broken skin on the right forearm. continues Improving. HEAD: Normocephalic. EYES: No scleral icterus. No injection or drainage. NECK: Supple, trachea midline. No JVD . CARDIOVASCULAR: Regular rate and rhythm without murmurs, gallops, or rubs. RESPIRATORY: Breath sounds equal bilaterally. No accessory muscle use. GASTROINTESTINAL: Abdomen soft, non-tender, nondistended. PEG tube in place. No surrounding erythema as before.positive bowel sounds. MUSCULOSKELETAL: No cyanosis, or edema. wound VAC in place as before. BACK: Nontender without obvious deformity. No CVA tenderness. . (Moira Macias MD R3) A/P Problem List: (1) Encephalopathy ICD Code: G93.40 (2) Acute respiratory failure ICD Code: J96.00 (3) A-fib ICD Code: I48.91 (4) CVA (cerebral vascular accident) ICD Code: I63.9 (5) DM (diabetes mellitus) ICD Code: E11.9 (6) M[employer] lymphoma ICD Code: C85.89 (7) Non-Hodgkin lymphoma ICD Code: C85.90 Assessment and Plan 09/28/16. Patient seen and examined. again with no acute changes. Patient may be able to go to [facility], case management is working on this. 60 year-old male with: 1. 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 Tracks with his eyes. Continue Keppra for seizure prophylaxis. PT/OT signed off as patient is unable to participate. -Need placement. Difficult. Appreciate case management assistance. 2. Chronic respiratory failure -Secondary to CVA. Status post tracheostomy. Continue pulmonary toilet and bronchodilators as needed. Continue trach care, suctioning. Levsin as needed. -Pulmonary currently following . Appreciate assistance. 3. Atrial fibrillation -Continue rate control with Cardizem and metoprolol. Echocardiogram in November 2015 shows preserved ejection fraction. Coumadin discontinued secondary to bleeding. Rate controlled. Continue aspirin and prophylactic heparin dose. 4. History of non-Hodgkin's lymphoma - Status post brain biopsy on December 13 by neurosurgery. Pathology consistent with acute infarct without evidence of lymphoma. Oncology has signed all 5. Diabetes mellitus -Hemoglobin A1c is 7. Continue Levemir. Monitor Accu-Cheks and cover with sliding scale insulin. Overall blood sugar continues well controlled. 6. Decubitus ulcer stage IV -Continue wound care, twice-daily dressing changes. Wound care recommendations. Continue pressure relief measures including turning and positioning. Patient's family has declined a diverting colostomy. Previous Wound culture growing Klebsiella. on Augmentin. Status post wide excision of sacral skin and biopsy of the cavity lining with debridement on 07/22/16. Continue scheduled [place] every 8 hours. -Continue to monitor for pain. 7. Gastric ulcer, reflux esophagitis - EGD on 07/30/16 showed gastric ulcers. Appreciate GI recommendations. Continue PPI. H&H stable as of last recheck.. 8. UTI pseudomonas aeruginosa treated with abx - Resolved. - Repeat Ucx 08/28/16 negative. 9. Constipation: -Having regular bowel movements. -on lactulose. Monitor. FEN: Continue Nepro tube feeds with free water flushes. Appreciate dietary assistance. DVT prophylaxis: SCDs/ subq heparin Discharge Planning Prolonged hospital stay with placement difficulties due to patient's trach. Possible placement at [facility] pending. Case management assisting. (Moira Macias MD R3) Problem Qualifiers (1) DM (diabetes mellitus): Qualified Code: E11.9 - Type 2 diabetes mellitus without complications Moira Macias MD R3 Sep 28, 2016 11:45 Nahomy Tatum MD Sep 30, 2016 14:34
[2016-09-28] MEDS: PANTOPRAZOLE SODIUM 40 MG VIAL IV PUSH SCH ×2 (12:22→21:18)
[2016-09-28] MEDS: SENNOSIDES SYRUP 8.8 MG/5 ML CUP PO SCH (18:13)
[2016-09-28] MEDS: PARoxetine HCL SUSP 20 MG/10 ML UDC PEG SCH (19:52)
[2016-09-28] MEDS: SODIUM CHLORIDE 0.9% FLUSH 5 ML FLUSH IVF PRN (21:18)
[2016-09-28] MEDS: INSULIN DETEMIR 100 UNITS/ML VIAL SQ SCH (21:19)
[2016-09-29] VITALS (10 sets, daily range): BP systolic 109–118; BP diastolic 61–74; PULSE 75–88; RESP 18–20; TEMP 96.3–97.8; O2SAT 96–100
[2016-09-29] MEDS: FREE WATER TUBE SCH ×5 (03:54→20:00)
[2016-09-29] MEDS: HEPARIN SODIUM - SQ 10,000 UNITS/ML VIAL SQ SCH ×3 (05:05→22:00)
[2016-09-29] MEDS: AMOXICILLIN (TRIHYDRATE) 500 MG CAP PO SCH ×2 (05:05→14:07)
[2016-09-29] MEDS: ACETAMINOPHEN/HYDROcodone 325 MG/5 MG TAB PO SCH ×3 (05:05→21:00)
[2016-09-29] MEDS: ACETIC ACID 0.25% SOLN 1000 ML IRR BTL IRRIGATION SCH ×3 (05:06→22:00)
[2016-09-29] MEDS: INSULIN ASPART SUPPLEMENTAL SCALE SQ SCH (05:06)
--- NOTE | 2016-09-29 08:42 | HHI.PR ---
Subjective Remarks PT seen and examined this morning. Vitals are stable and he is afebrile. T piece in place, FiO2 28. Mother at bedside. Patient awakens and tracks. Spontaneously licks lips. Mother directs him to look up as a "yes" response to questions. He does this, but unclear if he understands what he's responding too. No changes overall. His prognosis remains poor and unchanged, family is prayerful that he will recover. Placement to [facility] is still being investigated. (Moira Macias MD R3) Objective Vital Signs Date Time Temp Pulse Resp B/P Pulse Ox O2 Delivery O2 Flow Rate FiO2 09/29/16 08:00 96.5 86 20 118/72 97 09/29/16 07:51 99 T-piece 28 09/29/16 07:51 99 T-piece 28 09/29/16 04:00 97.2 78 20 115/73 96 09/29/16 00:00 96.3 75 18 113/70 98 09/28/16 20:00 93.3 91 18 103/79 100 09/28/16 20:00 97 T-piece 28 09/28/16 20:00 97 T-piece 28 09/28/16 20:00 T-Piece 28 09/28/16 16:00 97.6 84 18 116/76 96 09/28/16 15:04 15 09/28/16 12:00 96.8 86 20 118/72 98 09/28/16 09:30 92 T-piece 6.00 28 I/O 09/28/16 09/28/16 09/28/16 09/29/16 09/29/16 09/29/16 07:00 15:00 23:00 07:00 15:00 23:00 Intake Total 877 ml 443 ml 866 ml 871 ml Output Total 1450 ml 1900 ml 800 ml Balance -573 ml -1457 ml 866 ml 71 ml IV Total 0 ml 0 ml Tube Feeding 477 ml 443 ml 466 ml 471 ml Other 400 ml 400 ml 400 ml Output Urine Total 1450 ml 1900 ml 800 ml # Bowel Movements 4 (Moira Macias MD R3) Result Diagram: 09/25/16 2103 Imaging Last Impressions Tube Change 09/09/16 1011 Signed Impressions: Service Date/Time: Friday, September 09, 2016 11:27 - CONCLUSION: Occluded jejunal port of the GJ tube. Uncomplicated gastrojejunostomy tube exchange as above. Jonel Jones Jr., MD Abdomen X-Ray 08/31/16 0000 Signed Impressions: Service Date/Time: Wednesday, August 31, 2016 16:36 - CONCLUSION: 1. No acute findings. Mild constipation. Durga Dotson MD Chest X-Ray 08/23/16 0000 Signed Impressions: Service Date/Time: Tuesday, August 23, 2016 16:06 - CONCLUSION: Minimal basilar right lung opacity likely representing atelectasis. Kwasi James MD Abdomen/Pelvis CT 04/12/16 0000 Signed Impressions: Service Date/Time: Tuesday, April 12, 2016 20:52 - CONCLUSION: 1. 6.4 cm necrotic mass or abscess in the soft tissues posteriorly just below the sacrum associated with some bony destructive change of the lower most sacrum and coccyx with inflammatory changes extending into the ischiorectal fossa and into the presacral retroperitoneum predominantly on the left side. There is associated fairly marked mural thickening of the anal verge and rectum. 2. There is gastrostomy and Arevalo catheter present. Stable abdominal aortic aneurysm. Durga Dotson MD Head Magnetic Resonance Angiography 03/05/16 0000 Signed Impressions: Service Date/Time: Saturday, March 05, 2016 09:26 - CONCLUSION: Persistent high-grade subtotal occlusive stenotic lesions in the distal right vertebral artery and proximal basilar artery with significant improvement in flow and recanalization following initial presentation of thrombosis. Stable interstitial circulation without significant stenosis. 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 There is decreasing restricted diffusion and increasing loss of volume characteristic of a subacute to chronic infarct. No evidence of acute infarct, acute hemorrhage mass or edema. Ernesto Kulkarni MD Head CT 01/16/16 0000 Signed Impressions: Service Date/Time: Saturday, January 16, 2016 10:51 - CONCLUSION: No extensive low density in the brainstem colin more prominent in the right the left extending into the right middle cerebellar peduncle consistent with brainstem infarct nonhemorrhagic acute Wellington West MD Neck Magnetic Resonance Angiography 12/22/15 0585 Signed Impressions: Service Date/Time: Tuesday, December 22, 2015 09:22 - CONCLUSION: Variant origin of the left vertebral artery from the aortic arch. No evidence of carotid stenosis. Glen Zamora MD Head/Brain Mag Res Venography 12/22/15 0000 Signed Impressions: Service Date/Time: Tuesday, December 22, 2015 09:22 - CONCLUSION: Normal MRV. Jonel Jones Jr., MD Procedures 01/02/16 PEG placement 01/02/16 tracheostomy 07/22/2016 Wide excision of sacral skin wound, biopsy of the cavity lining and debridement. PEG tube replacement 07/29/16 Objective Remarks GENERAL: lying in bed, appears to awaken when stimulated. he appears to be breathing comfortably and is without any pain. SKIN: Warm and dry. No signs of abrasions or rashes on UE and abdomen. LE with SCDs. HEAD: Normocephalic. EYES: No scleral icterus. No injection or drainage. NECK: Supple, trachea midline. No JVD . CARDIOVASCULAR: Regular rate and rhythm without murmurs, gallops, or rubs. RESPIRATORY: Breath sounds equal bilaterally to anterior auscultation. T-piece in place. No accessory muscle use. GASTROINTESTINAL: Abdomen soft, non-tender, nondistended. PEG tube in place, there is some scant drainage around the tube. Arevalo in place, urine is clear. MUSCULOSKELETAL: No cyanosis, or edema. wound VAC in place as before. BACK: Nontender without obvious deformity. No CVA tenderness. . (Moira Macias MD R3) A/P Problem List: (1) Encephalopathy ICD Code: G93.40 (2) Acute respiratory failure ICD Code: J96.00 (3) A-fib ICD Code: I48.91 (4) CVA (cerebral vascular accident) ICD Code: I63.9 (5) DM (diabetes mellitus) ICD Code: E11.9 (6) MAT[employer] CH[employer]ER lymphoma ICD Code: C85.89 (7) Non-Hodgkin lymphoma ICD Code: C85.90 Assessment and Plan 09/29/16. Patient seen and examined. monitor PEG tube site closely for any signs of infection again with no acute changes. Patient may be able to go to [facility], case management is working on this. 60 year-old male with: 1. 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 Tracks with his eyes. Continue Keppra for seizure prophylaxis. PT/OT signed off as patient is unable to participate. -Need placement. Difficult. Appreciate case management assistance. 2. Chronic respiratory failure -Secondary to CVA. Status post tracheostomy. Continue pulmonary toilet and bronchodilators as needed. Continue trach care, suctioning. Levsin as needed. -Pulmonary currently following . Appreciate assistance. 3. Atrial fibrillation -Continue rate control with Cardizem and metoprolol. Echocardiogram in November 2015 shows preserved ejection fraction. Coumadin discontinued secondary to bleeding. Rate controlled. Continue aspirin and prophylactic heparin dose. 4. History of non-Hodgkin's lymphoma - Status post brain biopsy on December 13 by neurosurgery. Pathology consistent with acute infarct without evidence of lymphoma. Oncology has signed all 5. Diabetes mellitus -Hemoglobin A1c is 7. Continue Levemir. Monitor Accu-Cheks and cover with sliding scale insulin. Overall blood sugar continues well controlled. 6. Decubitus ulcer stage IV -Continue wound care, twice-daily dressing changes. Wound care recommendations. Continue pressure relief measures including turning and positioning. Patient's family has declined a diverting colostomy. Previous Wound culture growing Klebsiella. on Augmentin. Status post wide excision of sacral skin and biopsy of the cavity lining with debridement on 07/22/16. Continue scheduled [place] every 8 hours. -Continue to monitor for pain. 7. Gastric ulcer, reflux esophagitis - EGD on 07/30/16 showed gastric ulcers. Appreciate GI recommendations. Continue PPI. H&H stable as of last recheck.. 8. UTI pseudomonas aeruginosa treated with abx - Resolved. - Repeat Ucx 08/28/16 negative. 9. Constipation: -Having regular bowel movements. -on lactulose. Monitor. FEN: Continue Nepro tube feeds with free water flushes. Appreciate dietary assistance. DVT prophylaxis: SCDs/ subq heparin Discharge Planning Prolonged hospital stay with placement difficulties due to patient's trach. [facility] at [facility] pending. Case management assisting. (Moira Macias MD R3) Problem Qualifiers (1) DM (diabetes mellitus): Qualified Code: E11.9 - Type 2 diabetes mellitus without complications Moira Macias MD R3 Sep 29, 2016 08:42 Nahomy Tatum MD Sep 30, 2016 14:34
[2016-09-29] MEDS: SODIUM CHLORIDE 0.65% NASAL SPRAY 45 ML BTL NASAL SCH ×2 (09:00→21:00)
[2016-09-29] MEDS: KETOCONAZOLE 2% CREAM 15 GM TOPICAL SCH ×2 (09:00→21:00)
[2016-09-29] MEDS: ARTIFICIAL TEARS OPTH SOLN 15 ML BTL EACH EYE SCH ×2 (09:26→21:00)
[2016-09-29] MEDS: BACITRACIN TOP OINT 15 GM TUBE TOP SCH ×2 (09:27→21:00)
[2016-09-29] MEDS: NYSTATIN 100,000 U/GM PWD 15 GM BTL TOPICAL SCH ×2 (09:27→21:00)
[2016-09-29] MEDS: DILTIAZEM HCL 30 MG TAB PEG SCH ×4 (09:28→21:00)
[2016-09-29] MEDS: LACTOBACILLUS ACIDOPHILUS TAB PEG SCH ×3 (09:28→18:51)
[2016-09-29] MEDS: DOCUSATE SODIUM 100 MG/10 ML UDC PO SCH ×2 (09:28→21:00)
[2016-09-29] MEDS: ASPIRIN 325 MG TAB TUBE SCH (09:28)
[2016-09-29] MEDS: levETIRAcetam 500 MG/5 ML UDC TUBE SCH ×2 (09:28→21:00)
[2016-09-29] MEDS: METOPROLOL TARTRATE 50 MG TAB PO SCH ×2 (09:28→21:00)
[2016-09-29] MEDS: LACTULOSE SYRUP 20 GM/30 ML CUP PO SCH (09:29)
[2016-09-29] MEDS: PANTOPRAZOLE SODIUM 40 MG VIAL IV PUSH SCH ×2 (09:29→22:15)
[2016-09-29] MEDS: POTASSIUM CHLORIDE 25 MEQ EFFERVESCENT TAB TUBE SCH (09:29)
[2016-09-29] MEDS: PARoxetine HCL SUSP 20 MG/10 ML UDC PEG SCH (18:50)
[2016-09-29] MEDS: SENNOSIDES SYRUP 8.8 MG/5 ML CUP PO SCH (18:51)
[2016-09-29] MEDS: INSULIN DETEMIR 100 UNITS/ML VIAL SQ SCH (21:00)
[2016-09-30] VITALS (10 sets, daily range): BP systolic 92–121; BP diastolic 66–76; PULSE 77–90; RESP 18–20; TEMP 96.3–98.4; O2SAT 12–100
[2016-09-30] MEDS: AMOXICILLIN (TRIHYDRATE) 500 MG CAP PO SCH ×4 (00:47→23:15)
[2016-09-30] MEDS: FREE WATER TUBE SCH ×7 (04:00→23:18)
[2016-09-30] MEDS: ACETAMINOPHEN/HYDROcodone 325 MG/5 MG TAB PO SCH ×3 (06:09→23:16)
[2016-09-30] MEDS: INSULIN ASPART SUPPLEMENTAL SCALE SQ SCH (06:10)
[2016-09-30] MEDS: ACETIC ACID 0.25% SOLN 1000 ML IRR BTL IRRIGATION SCH ×3 (06:10→23:17)
[2016-09-30] MEDS: HEPARIN SODIUM - SQ 10,000 UNITS/ML VIAL SQ SCH ×3 (06:10→23:14)
[2016-09-30] MEDS: SODIUM CHLORIDE 0.65% NASAL SPRAY 45 ML BTL NASAL SCH ×2 (09:00→21:00)
[2016-09-30] MEDS: ARTIFICIAL TEARS OPTH SOLN 15 ML BTL EACH EYE SCH ×2 (09:14→23:16)
[2016-09-30] MEDS: KETOCONAZOLE 2% CREAM 15 GM TOPICAL SCH ×2 (09:15→23:17)
[2016-09-30] MEDS: BACITRACIN TOP OINT 15 GM TUBE TOP SCH ×2 (09:15→23:17)
[2016-09-30] MEDS: NYSTATIN 100,000 U/GM PWD 15 GM BTL TOPICAL SCH ×2 (09:15→23:17)
[2016-09-30] MEDS: LACTOBACILLUS ACIDOPHILUS TAB PEG SCH ×3 (09:16→17:14)
[2016-09-30] MEDS: LACTULOSE SYRUP 20 GM/30 ML CUP PO SCH (09:16)
[2016-09-30] MEDS: POTASSIUM CHLORIDE 25 MEQ EFFERVESCENT TAB TUBE SCH (09:16)
[2016-09-30] MEDS: DILTIAZEM HCL 30 MG TAB PEG SCH ×4 (09:16→21:00)
[2016-09-30] MEDS: DOCUSATE SODIUM 100 MG/10 ML UDC PO SCH ×2 (09:16→23:16)
[2016-09-30] MEDS: ASPIRIN 325 MG TAB TUBE SCH (09:16)
[2016-09-30] MEDS: levETIRAcetam 500 MG/5 ML UDC TUBE SCH ×2 (09:16→23:16)
[2016-09-30] MEDS: METOPROLOL TARTRATE 50 MG TAB PO SCH ×2 (09:16→21:00)
[2016-09-30] MEDS: PANTOPRAZOLE SODIUM 40 MG VIAL IV PUSH SCH ×2 (09:58→23:14)
--- NOTE | 2016-09-30 12:09 | HHI.PR ---
Subjective Remarks in no acute distress. no fever. Objective Vitals Vital Signs Date Time Temp Pulse Resp B/P Pulse Ox O2 Delivery O2 Flow Rate FiO2 09/30/16 08:17 98.4 89 20 121/74 98 09/30/16 08:00 90 09/30/16 04:00 97.4 88 20 120/73 100 09/30/16 00:00 97.3 77 18 120/76 98 09/29/16 21:00 T-Piece 6.00 28 09/29/16 21:00 78 09/29/16 20:53 98 T-piece 28 09/29/16 20:53 98 T-piece 28 09/29/16 20:00 97.0 80 18 118/74 97 09/29/16 16:55 100 T-piece 6.00 28 09/29/16 16:00 97.6 84 19 109/61 97 09/29/16 15:07 15 I/O 09/29/16 09/29/16 09/29/16 09/30/16 09/30/16 09/30/16 07:00 15:00 23:00 07:00 15:00 23:00 Intake Total 871 ml 900 ml Output Total 800 ml 700 ml 800 ml Balance 71 ml 200 ml -800 ml IV Total 0 ml 0 ml Tube Feeding 471 ml 450 ml Other 400 ml 450 ml Output Urine Total 800 ml 700 ml 800 ml # Bowel Movements 0 Imaging Last Impressions Tube Change 09/09/16 1011 Signed Impressions: Service Date/Time: Friday, September 09, 2016 11:27 - CONCLUSION: Occluded jejunal port of the GJ tube. Uncomplicated gastrojejunostomy tube exchange as above. Jonel Jones Jr., MD Abdomen X-Ray 08/31/16 0000 Signed Impressions: Service Date/Time: Wednesday, August 31, 2016 16:36 - CONCLUSION: 1. No acute findings. Mild constipation. Durga Dotson MD Chest X-Ray 08/23/16 0000 Signed Impressions: Service Date/Time: Tuesday, August 23, 2016 16:06 - CONCLUSION: Minimal basilar right lung opacity likely representing atelectasis. Kwasi James MD Abdomen/Pelvis CT 04/12/16 0000 Signed Impressions: Service Date/Time: Tuesday, April 12, 2016 20:52 - CONCLUSION: 1. 6.4 cm necrotic mass or abscess in the soft tissues posteriorly just below the sacrum associated with some bony destructive change of the lower most sacrum and coccyx with inflammatory changes extending into the ischiorectal fossa and into the presacral retroperitoneum predominantly on the left side. There is associated fairly marked mural thickening of the anal verge and rectum. 2. There is gastrostomy and Arevalo catheter present. Stable abdominal aortic aneurysm. Durga Dotson MD Head Magnetic Resonance Angiography 03/05/16 0000 Signed Impressions: Service Date/Time: Saturday, March 05, 2016 09:26 - CONCLUSION: Persistent high-grade subtotal occlusive stenotic lesions in the distal right vertebral artery and proximal basilar artery with significant improvement in flow and recanalization following initial presentation of thrombosis. Stable interstitial circulation without significant stenosis. 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 There is decreasing restricted diffusion and increasing loss of volume characteristic of a subacute to chronic infarct. No evidence of acute infarct, acute hemorrhage mass or edema. Ernesto Kulkarni MD Head CT 01/16/16 0000 Signed Impressions: Service Date/Time: Saturday, January 16, 2016 10:51 - CONCLUSION: No extensive low density in the brainstem colin more prominent in the right the left extending into the right middle cerebellar peduncle consistent with brainstem infarct nonhemorrhagic acute Wellington West MD Neck Magnetic Resonance Angiography 12/22/15 1445 Signed Impressions: Service Date/Time: Tuesday, December 22, 2015 09:22 - CONCLUSION: Variant origin of the left vertebral artery from the aortic arch. No evidence of carotid stenosis. Glen Zamora MD Head/Brain Mag Res Venography 12/22/15 0000 Signed Impressions: Service Date/Time: Tuesday, December 22, 2015 09:22 - CONCLUSION: Normal MRV. Jonel Jones Jr., MD Objective Remarks GENERAL: on Trach- in no apparent distress. CARDIOVASCULAR: Regular rate and regular rhythm without murmurs, gallops, or rubs. RESPIRATORY: Clear to auscultation. Breath sounds equal bilaterally. No wheezes , rales, or rhonchi. GASTROINTESTINAL: Abdomen soft, non-tender,distended. hypoactive bowel sounds-PEG in place MUSCULOSKELETAL: Extremities without clubbing, cyanosis, or edema. NEURO: awake Procedures 01/02/16 PEG placement 01/02/16 tracheostomy 07/22/2016 Wide excision of sacral skin wound, biopsy of the cavity lining and debridement. PEG tube replacement 07/29/16 Medications and IVs Current Medications IV Flush (NS Flush) 2 ml UNSCH PRN IVF FLUSH AFTER USING IV ACCESS Last administered on 09/28/16t 21:18; Start 12/21/15 at 06:00 Ondansetron HCl (Zofran Inj) 4 mg STK-MED ONCE .ROUTE ; Start 12/21/15 at 06:22; Stop 12/21/15 at 06:23; Status DC Ondansetron HCl (Zofran Inj) 4 mg ONCE ONCE IV PUSH Last administered on at 06:43; Start 12/21/15 at 06:30; Stop 12/21/15 at 06:31; Status DC Diltiazem HCl 20 mg 20 mg ONCE ONCE IV Last administered on 12/21/15at 06:42; Start 12/21/15 at 06:30; Stop 12/21/15 at 06:31; Status DC Diltiazem HCl/ Sodium Chloride (Cardizem Inj/NS Inj) 125 ml @ 0 mls/hr TITRATE IV Last administered on 12/21/15at 06:47; Start 12/21/15 at 06:30; Stop 12/21/15 at 13:00; Status DC Acetaminophen (Tylenol) 650 mg ONCE ONCE PO ; Start 12/21/15 at 06:45; Stop 12/20 at 06:46; Status DC Lorazepam (Ativan Inj) 1 mg ONCE ONCE IV PUSH Last administered on 12/21/15at 07 :22; Start 12/21/15 at 07:15; Stop 12/21/15 at 07:16; Status DC Etomidate (Amidate Inj) 40 mg STK-MED ONCE .ROUTE Last administered on at 08:17; Start 12/21/15 at 07:37; Stop 12/21/15 at 07:38; Status DC Succinylcholine Chloride 200 mg 200 mg STK-MED ONCE .ROUTE Last administered on 12/21/15at 08:18; Start 12/21/15 at 07:37; Stop 12/21/15 at 07:38; Status DC Propofol (Diprivan 1000 Mg/100ml Inj) 100 ml @ As Directed STK-MED ONCE .ROUTE Last administered on 12/21/15at 08:19; Start 12/21/15 at 07:46; Stop 12/21/15 at 07:47; Status DC Propofol (Diprivan 1000 Mg/100ml Inj) search Sets for Drip. NOW PRN IV SEDATION Last administered on 12/22/15at 06:25; Start 12/21/15 at 08:30; Stop 12/28 at 15:43; Status DC Gadodiamide (Omniscan Pf Inj) 18 ml STK-MED ONCE IV Last administered on at 10:11; Start 12/21/15 at 10:11; Stop 12/21/15 at 10:12; Status DC Pantoprazole Sodium (Protonix Inj) 40 mg DAILY IV Last administered on at 07:39; Start 12/21/15 at 13:00; Stop 01/03/16 at 10:10; Status DC Albuterol/ Ipratropium (Duoneb Neb) 1 ampule Q6HR NEB INH Last administered on 12/25/15at 07:51; Start 12/21/15 at 13:00; Stop 12/25/15 at 13:00; Status DC Miscellaneous Information 1 [id number] Last administered on 12/21/15at 13:00; Start 12/21/15 at 13:00; Stop 01/12/16 at 11:47; Status DC Chlorhexidine Gluconate (Chlorhexidine 2% Cloth) 3 pack Taper DAILY@04 TOP Last administered on 01/11/16at 04:10; Start 12/22/15 at 04:00; Stop 01/12/16 at 11:47; Status DC Chlorhexidine Gluconate 3 pack 3 pack UNSCH PRN TOP HYGIENIC CARE; Start at 13:00; Stop 01/12/16 at 11:47; Status DC Sodium Chloride (NS 1000 ml Inj) 1,000 ml @ 75 mls/hr [id number] IV Last administered on 12/22/15at 17:00; Start 12/21/15 at 13:00; Stop 12/22/15 at 19:01; Status DC Dextrose (D50w (Vial) Inj) 25 ml UNSCH PRN IV PUSH HYPOGLYCEMIA-SEE COMMENTS; Start 12/21/15 at 13:00; Stop 04/19/16 at 17:19; Status DC Glucagon (Glucagon Inj) 1 mg UNSCH PRN OTHER HYPOGLYCEMIA-SEE COMMENTS; Start 12/21/15 at 13:00; Stop 04/19/16 at 17:19; Status DC Insulin Human Regular (NovoLIN R SUPPLEMENTAL SCALE) 1 Q6H SQ Last administered on 01/04/16at 06:31; Start 12/21/15 at 13:00; Stop 01/04/16 at 10:05 ; Status DC Levetriacetam (Keppra) 500 mg Q12HR PO Last administered on 12/27/15at 09:00; Start 12/21/15 at 13:45; Stop 12/27/15 at 09:44; Status DC Heparin Sodium (Porcine) (Heparin Inj) 5,000 units BID SQ Last administered on 12/22/15at 20:52; Start 12/21/15 at 21:00; Stop 12/23/15 at 08:32; Status DC Warfarin Sodium (Coumadin) 7.5 mg ONCE ONCE PO Last administered on 12/21/15at 21:43; Start 12/21/15 at 21:00; Stop 12/21/15 at 21:01; Status DC Warfarin Sodium (Coumadin) 5 mg DAILY@16 PO Last administered on 12/23/15at 16:00 ; Start 12/22/15 at 16:00; Stop 12/26/15 at 09:29; Status DC Patient Medication Teaching (Coumadin Booklet) 1 ONCE ONCE XX Last administered on 12/21/15at 20:15; Start 12/21/15 at 20:15; Stop 12/21/15 at 20:16; Status DC Chlorhexidine Gluconate (Peridex 0.12% Liq) 15 ml BID@08,20 MT Last administered on 01/12/16at 08:00; Start 12/22/15 at 20:00; Stop 01/12/16 at 11:47 ; Status DC Gadodiamide 20 ml 20 ml STK-MED ONCE IV Last administered on 12/22/15at 09:55; Start 12/22/15 at 09:55; Stop 12/22/15 at 09:56; Status DC Pharmacy Profile Note ml @ 0 mls/hr UNSCH OTHER ; Start 12/22/15 at 11:00; Stop 12/22/15 at 19:43; Status DC Sodium Chloride 1,000 ml @ 50 mls/hr Q20H IV Last administered on 12/24/15at 20: 02; Start 12/22/15 at 18:44; Stop 12/25/15 at 11:52; Status DC Pharmacy Profile Note (Coumadin Consult Pharmacy) 0 ml @ 0 mls/hr UNSCH OTHER ; Start 12/22/15 at 19:45; Stop 01/04/16 at 12:25; Status DC Acetaminophen 650 mg 650 mg Q6H PRN PO TEMP > 100 Last administered on at 13:24; Start 12/23/15 at 02:45; Stop 12/30/15 at 15:04; Status DC Potassium Chloride 100 ml @ 50 mls/hr Q2H PRN IV For Potassium 2.8 - 3.2 mEq/L ; Start 12/23/15 at 08:30; Stop 01/09/16 at 11:14; Status DC Potassium Chloride (KCl 20 Meq Premix Inj) 100 ml @ 50 mls/hr Q2H PRN IV For Potassium 2.8 - 3.2 mEq/L; Start 12/23/15 at 08:30; Stop 01/09/16 at 11:14; Status DC Potassium Chloride 40 meq 40 meq UNSCH PRN PO/TUBE For Potassium 3.3 - 3.5 mEq/ L; Start 12/23/15 at 08:30; Stop 01/09/16 at 11:14; Status DC Potassium Chloride 100 ml @ 25 mls/hr UNSCH PRN IV For Potassium 3.3 - 3.5 mEq /L; Start 12/23/15 at 08:30; Stop 01/09/16 at 11:14; Status DC Potassium Chloride 100 ml @ 50 mls/hr Q2H PRN IV For Potassium 3.3 - 3.5 mEq/L ; Start 12/23/15 at 08:30; Stop 01/09/16 at 11:14; Status DC Magnesium Sulfate/ Sodium Chloride (Magnesium Sulfate Inj/NS Inj) 100 ml @ 50 mls/hr UNSCH PRN IV For Magnesium 0.9 - 1.1 mg/dL; Start 12/23/15 at 08:30; Stop 01/09/16 at 11:14; Status DC Magnesium Oxide 800 mg 800 mg UNSCH PRN PO For Magnesium 1.2 - 1.6 mg/dL; Start 12/23/15 at 08:30; Stop 01/09/16 at 11:14; Status DC Magnesium Sulfate/ Sodium Chloride (Magnesium Sulfate Inj/NS Inj) 100 ml @ 50 mls/hr UNSCH PRN IV For Magnesium 1.2 - 1.6 mg/dL; Start 12/23/15 at 08:30; Stop 01/09/16 at 11:14; Status DC Potassium Phosphate 2000 mg 2,000 mg Q4H PRN PO For Phosphorus < 2.5 mg/dL; Start 12/23/15 at 08:30; Stop 01/09/16 at 11:14; Status DC Sodium Phosphate/ Sodium Chloride (Sodium Phosphate Inj/NS 250 ml Inj) 250 ml @ 42 mls/hr UNSCH PRN IV For Phosphorus < 2.5 mg/dL; Start 12/23/15 at 08:30; Stop 01/09/16 at 11:14; Status DC Potassium Chloride (KCl 40 Meq/30 ml Liq) 40 meq UNSCH PRN PO/TUBE SEE LABEL COMMENTS; Start 12/23/15 at 08:30; Stop 01/09/16 at 11:14; Status DC Potassium Phosphate 2000 mg 2,000 mg UNSCH PRN PO/TUBE SEE LABEL COMMENTS; Start 12/23/15 at 08:30; Stop 01/09/16 at 11:14; Status DC Potassium Phosphate 30 mmol/ Sodium Chloride 260 ml @ 42 mls/hr UNSCH PRN IV SEE LABEL COMMENTS; Start 12/23/15 at 08:30; Stop 01/09/16 at 11:14; Status DC Sodium Chloride 1,000 ml @ 75 mls/hr [id number] IV ; Start 12/23/15 at 08:30; Stop 12/23/15 at 08:30; Status DC Piperacillin Sod/ Tazobactam Sod 50 ml @ 100 mls/hr Q6H IV Last administered on 12/30/15at 10:02; Start 12/23/15 at 10:00; Stop 12/30/15 at 14:50; Status DC Vancomycin HCl/ Sodium Chloride (Vancomycin Inj/ NS 250 ml Inj) 250 ml @ 250 mls/hr Q12H IV Last administered on 12/29/15 09:01; Start 12/24/15 at 08:45; Stop 12/29/15 at 15:33; Status DC Warfarin Sodium (Coumadin) 4 mg DAILY@16 PO Last administered on 12/28/15at 16:00 ; Start 12/26/15 at 16:00; Stop 01/04/16 at 12:25; Status DC Levetriacetam (Keppra Liq) 500 mg Q12HR TUBE Last administered on 09/30/16 09 :16; Start 12/27/15 at 21:00 Docusate Sodium (Colace Liq) 100 mg Q12HR TUBE Last administered on 01/15/16at 09:01; Start 12/27/15 at 21:00; Stop 04/16/16 at 08:50; Status DC Sennosides (Senna Liq) 8.8 mg DAILY TUBE Last administered on 01/15/16at 09:01 ; Start 12/27/15 at 17:00; Stop 01/15/16 at 20:37; Status DC Bisacodyl (Dulcolax Supp) 10 mg ONCE ONCE RECTAL ; Start 12/27/15 at 16:15; Stop 12/27/15 at 16:15; Status DC Albuterol/ Ipratropium (Duoneb Neb) 1 ampule Q4HR NEB PRN NEB RESPIRATORY DISTRESS Last administered on 12/29/15at 12:17; Start 12/27/15 at 22:00; Stop at 08:16; Status DC Bisacodyl (Dulcolax Supp) 10 mg ONCE ONCE RECTAL ; Start 12/28/15 at 12:00; Stop 12/28/15 at 12:01; Status DC Sodium Chloride (Sodium Chloride) 1 gm BID TUBE Last administered on 12/29/15at 09:02; Start 12/28/15 at 21:00; Stop 12/29/15 at 15:43; Status DC Lactulose (Lactulose Liq) 30 ml DAILY TUBE Last administered on 12/29/15at 09:02 ; Start 12/28/15 at 20:30; Stop 12/29/15 at 15:43; Status DC Levofloxacin (Levaquin) 750 mg DAILY@16 TUBE ; Start 12/29/15 at 16:00; Stop 05/05 at 16:00; Status DC Sodium Chloride (Sodium Chloride) 1 gm DAILY TUBE Last administered on at 07:29; Start 12/30/15 at 09:00; Stop 12/31/15 at 14:08; Status DC Water 200 ml 200 ml Q6HR G-TUBE Last administered on 12/31/15at 04:19; Start 06/05 at 14:45; Stop 12/31/15 at 07:31; Status DC Ceftriaxone Sodium/Sodium Chloride (Rocephin Inj/NS Inj) 100 ml @ 200 mls/hr Q12H IV Last administered on 01/03/16at 02:47; Start 12/30/15 at 15:00; Stop at 10:09; Status DC Acetaminophen (Tylenol 650 Mg/ 20 ml Liq) 650 mg Q6H PRN TUBE TEMP >100.4 Last administered on 08/23/16t 12:52; Start 12/30/15 at 15:15 Lactobacillus Acidophilus (Lactinex Pkt) 1 gm BID TUBE Last administered on at 09:00; Start 12/30/15 at 21:00; Stop 02/10/16 at 14:30; Status DC Enoxaparin Sodium (Lovenox Inj) 90 mg Q12H SQ Last administered on 01/01/16at 21 :57; Start 12/31/15 at 08:00; Stop 01/03/16 at 10:33; Status DC Water (Free Water) 100 ml Q12H G-TUBE ; Start 12/31/15 at 18:00; Stop 12/31/15 at 18:00; Status DC Acetaminophen/ Hydrocodone Bitart ([place] 5-325 Mg) 1 tab Q6H PRN PO PAIN Last administered on 05/26/16at 20:46; Start 12/31/15 at 15:00; Stop 06/02/16 at 21: 44; Status DC Fentanyl Citrate (Sublimaze Inj) 25 mcg Q1H PRN IV PUSH BREAKTHROUGH PAIN; Start 12/31/15 at 15:00; Stop 03/06/16 at 10:03; Status DC Water (Free Water) 200 ml Q8H G-TUBE Last administered on 01/01/16at 17:55; Start 12/31/15 at 18:00; Stop 01/02/16 at 09:56; Status DC Sodium Chloride (Sodium Chloride) 1 gm BID TUBE Last administered on 01/03/16at 07:39; Start 12/31/15 at 21:00; Stop 01/03/16 at 09:08; Status DC Miscellaneous Information Hold Anticoagulation after midni... ONCE ONCE OTHER ; Start 01/01/16 at 10:15; Stop 01/01/16 at 10:29; Status DC Sodium Chloride (NS 1000 ml Inj) 1,000 ml @ 50 mls/hr Q20H IV Last administered on 01/02/16at 12:26; Start 01/01/16 at 18:00; Stop 01/03/16 at 10:07 ; Status DC Midazolam HCl (Versed Inj) 5 mg STK-MED ONCE .ROUTE ; Start 01/02/16 at 12:47; Stop 01/02/16 at 12:48; Status DC Vecuronium Constantia (Norcuron 10 Mg Inj) 10 mg STK-MED ONCE .ROUTE ; Start at 12:47; Stop 01/02/16 at 12:48; Status DC Fentanyl Citrate (Sublimaze Inj) 250 mcg ONCE ONCE IV PUSH Last administered on 01/02/16at 15:00; Start 01/02/16 at 15:00; Stop 01/02/16 at 15:01; Status DC Midazolam HCl (Versed Inj) 10 mg ONCE ONCE IV PUSH Last administered on at 15:00; Start 01/02/16 at 15:00; Stop 01/02/16 at 15:01; Status DC Rocuronium Constantia (Zemuron Inj) 100 mg BOLUS ONCE IV Last administered on at 15:00; Start 01/02/16 at 15:00; Stop 01/02/16 at 15:01; Status DC Ketamine HCl (Ketalar Inj) 500 mg STK-MED ONCE .ROUTE ; Start 01/02/16 at 14:30 ; Stop 01/02/16 at 14:31; Status DC Propofol 230 mg 230 mg STK-MED ONCE IV ; Start 01/02/16 at 16:51; Stop 01/02/16 at 16:52; Status DC Sodium Chloride (NS 1000 ml Inj) 1,000 ml @ 0 mls/hr Q0M IV ; Start 01/03/16 at 10:15; Stop 01/17/16 at 17:30; Status DC Ranitidine HCl (Zantac Liq) 150 mg Q12HR PO Last administered on 01/17/16at 07: 39; Start 01/04/16 at 09:00; Stop 01/17/16 at 15:23; Status DC Enoxaparin Sodium 90 mg 90 mg Q12HR SQ Last administered on 01/11/16at 10:01; Start 01/04/16 at 09:00; Stop 01/11/16 at 12:35; Status DC Sodium Chloride (NS 500 ml Inj) 500 ml @ 0 mls/hr BOLUS ONCE IV Last administered on 01/03/16at 22:57; Start 01/03/16 at 23:00; Stop 01/03/16 at 23:01 ; Status DC Insulin Aspart (NovoLOG SUPPLEMENTAL SCALE) 1 Q6HR SQ Last administered on at 12:00; Start 01/04/16 at 12:00; Stop 03/24/16 at 13:58; Status DC Potassium Chloride (KCl 40 Meq/30 ml Liq) 40 meq Q4H NG Last administered on at 16:21; Start 01/04/16 at 13:00; Stop 01/04/16 at 17:01; Status DC Warfarin Sodium 5 mg 5 mg DAILY@1600 PO Last administered on 01/09/16at 17:21; Start 01/04/16 at 16:00; Stop 01/10/16 at 10:06; Status DC Pharmacy Profile Note (Coumadin Consult Pharmacy) 0 ml @ 0 mls/hr UNSCH XX ; Start 01/04/16 at 12:30; Stop 04/20/16 at 12:04; Status DC Insulin Detemir (Levemir Inj) 10 units Q12HR SQ Last administered on 01/05/16at 08:00; Start 01/04/16 at 21:00; Stop 01/05/16 at 08:42; Status DC Insulin Detemir (Levemir Inj) 5 units NOW ONCE SQ Last administered on at 13:28; Start 01/04/16 at 12:45; Stop 01/04/16 at 12:46; Status DC Albuterol/ Ipratropium (Duoneb Neb) 1 ampule Q4HR NEB PRN NEB dyspnea Last administered on 04/19/16at 02:24; Start 01/07/16 at 08:15; Stop 04/25/16 at 18:54 ; Status DC Warfarin Sodium (Coumadin) 7.5 mg ONCE ONCE PO Last administered on 01/07/16at 16:40; Start 01/07/16 at 16:00; Stop 01/07/16 at 16:01; Status DC Nystatin (Mycostatin Powder) 1 applic Q12HR TOPICAL Last administered on t 09:15; Start 01/08/16 at 21:00 Ipratropium Constantia (Atrovent Neb) 0.5 mg TID NEB NEB Last administered on 02/20at 13:17; Start 01/08/16 at 20:00; Stop 02/21/16 at 17:52; Status DC Warfarin Sodium (Coumadin) 5 mg DAILY@1600 PO Last administered on 01/11/16at 14 :26; Start 01/11/16 at 16:00; Stop 01/12/16 at 09:45; Status DC Warfarin Sodium (Coumadin) 6 mg ONCE PO Last administered on 01/10/16at 17:10; Start 01/10/16 at 16:00; Stop 01/10/16 at 21:00; Status DC Metoprolol Tartrate (Lopressor) 50 mg Q12HR GT Last administered on 01/11/16at 10:02; Start 01/10/16 at 11:00; Stop 01/11/16 at 12:30; Status DC Metoprolol Tartrate (Lopressor) 50 mg TID GT Last administered on 01/14/16at 08: 24; Start 01/11/16 at 13:00; Stop 01/14/16 at 08:28; Status DC Insulin Detemir (Levemir Inj) 10 units HS SQ Last administered on 01/11/16at 22: 23; Start 01/11/16 at 21:00; Stop 01/12/16 at 11:47; Status DC Warfarin Sodium (Coumadin) 4 mg DAILY@16 PO ; Start 01/12/16 at 16:00; Stop at 16:00; Status DC Insulin Detemir (Levemir Inj) 20 units HS SQ Last administered on 01/13/16at 20: 26; Start 01/12/16 at 21:00; Stop 01/14/16 at 08:28; Status DC Warfarin Sodium (Coumadin) 2 mg DAILY@16 PO Last administered on 01/13/16at 17: 05; Start 01/12/16 at 16:00; Stop 01/14/16 at 11:23; Status DC Insulin Detemir (Levemir Inj) 22 units HS SQ Last administered on 01/14/16at 21: 37; Start 01/14/16 at 21:00; Stop 01/15/16 at 10:06; Status DC Metoprolol Tartrate (Lopressor) 75 mg TID GT Last administered on 03/10/16at 17: 43; Start 01/14/16 at 09:00; Stop 03/10/16 at 21:13; Status DC Miscellaneous (Pill Splitter) 1 ea UNSCH PRN OTHER SEE LABEL COMMENTS; Start at 08:30 Warfarin Sodium (Coumadin) 4 mg DAILY@1600 PO Last administered on 01/21/16at 16: 51; Start 01/14/16 at 16:00; Stop 01/23/16 at 09:29; Status DC Patient Medication Teaching (Coumadin Booklet) 1 ONCE ONCE XX ; Start 01/14/16 at 16:00; Stop 01/14/16 at 16:01; Status DC Insulin Detemir (Levemir Inj) 24 units HS SQ Last administered on 03/04/16at 21: 09; Start 01/15/16 at 21:00; Stop 03/05/16 at 11:17; Status DC Citalopram Hydrobromide (CeleXA) 20 mg DAILY PEG Last administered on at 08:01; Start 01/16/16 at 09:00; Stop 01/16/16 at 09:41; Status DC Sennosides (Senna Liq) 8.8 mg BID TUBE Last administered on 02/20/16at 08:32; Start 01/15/16 at 21:00; Stop 02/20/16 at 16:13; Status DC Gadodiamide 18 ml 18 ml STK-MED ONCE IV ; Start 01/16/16 at 20:40; Stop at 20:41; Status DC Sodium Chloride (NS 1000 ml Inj) 1,000 ml @ 125 mls/hr Q8H IV Last administered on 01/17/16at 15:11; Start 01/17/16 at 15:00; Stop 01/17/16 at 17:31 ; Status DC Ranitidine HCl 150 mg 150 mg Q24H PO Last administered on 07/28/16t 08:54; Start 01/18/16 at 09:00; Stop 07/30/16 at 10:05; Status DC Sodium Chloride 1,000 ml @ 75 mls/hr [id number] IV Last administered on at 05:22; Start 01/17/16 at 18:00; Stop 01/18/16 at 09:28; Status DC Sodium Chloride/ Sterile Water (Sodium Chloride 23.4% Inj/Sterile Water For Inj ) 1,009.625 ml @ 60 mls/hr [id number] IV Last administered on 01/21/16at 22:46; Start 01/18/16 at 11:00; Stop 01/22/16 at 10:09; Status DC Potassium Chloride (KCl) 40 meq ONCE ONCE PO ; Start 01/18/16 at 09:30; Stop at 09:31; Status DC Potassium Chloride (KCl 40 Meq/30 ml Liq) 40 meq ONCE ONCE TUBE Last administered on 01/18/16at 11:08; Start 01/18/16 at 11:00; Stop 01/18/16 at 11:01 ; Status DC Water (Free Water) 300 ml Q4HR TUBE Last administered on 01/19/16at 08:00; Start 01/18/16 at 12:00; Stop 01/19/16 at 10:43; Status DC Water (Free Water) 400 ml Q4HR TUBE Last administered on 04/16/16at 04:00; Start 01/19/16 at 12:00; Stop 04/16/16 at 09:09; Status DC Potassium Chloride (KCl 40 Meq/30 ml Liq) 40 meq ONCE ONCE NG Last administered on 01/19/16at 11:41; Start 01/19/16 at 11:00; Stop 01/19/16 at 11:01; Status DC Potassium Chloride 60 meq 60 meq ONCE ONCE PO/TUBE Last administered on 13:30; Start 01/21/16 at 11:15; Stop 01/21/16 at 11:27; Status DC Sodium Chloride (1/2 NS 1000 ml Inj) 1,000 ml @ 30 mls/hr Q24H IV Last administered on 02/06/16at 11:26; Start 01/22/16 at 11:00; Stop 02/07/16 at 14:49 ; Status DC Warfarin Sodium (Coumadin) 3 mg DAILY@16 PO Last administered on 01/23/16at 17:19 ; Start 01/23/16 at 16:00; Stop 01/24/16 at 14:05; Status DC Warfarin Sodium (Coumadin) 3 mg DAILY@16 PO Last administered on 01/25/16at 15:59 ; Start 01/25/16 at 16:00; Stop 01/26/16 at 15:04; Status DC Warfarin Sodium (Coumadin) 4 mg ONCE@1600 ONCE PO Last administered on at 16:55; Start 01/24/16 at 16:00; Stop 01/24/16 at 16:01; Status DC Warfarin Sodium (Coumadin) 3 mg DAILY@16 PO ; Start 01/27/16 at 16:00; Stop at 16:00; Status DC Warfarin Sodium (Coumadin) 4 mg ONCE@1600 ONCE PO Last administered on at 16:52; Start 01/26/16 at 16:00; Stop 01/26/16 at 16:01; Status DC Potassium Chloride (KCl 40 Meq/30 ml Liq) 80 meq ONCE ONCE PO Last administered on 01/27/16at 07:45; Start 01/27/16 at 07:45; Stop 01/27/16 at 08:10; Status DC Warfarin Sodium (Coumadin) 4 mg DAILY@16 PO Last administered on 02/02/16at 17: 22; Start 01/27/16 at 16:00; Stop 02/03/16 at 11:37; Status DC Acetic Acid (Acetic Acid 0.25% Irr Btl) 10 ml Q8HR IRRIGATION Last administered on 02/05/16at 06:00; Start 01/28/16 at 22:00; Stop 02/05/16 at 15:51 ; Status DC Warfarin Sodium 3 mg 3 mg DAILY@1600 PO Last administered on 02/11/16at 17:34; Start 02/03/16 at 16:00; Stop 02/12/16 at 12:45; Status DC Ceftriaxone Sodium/Sodium Chloride (Rocephin Inj/NS Inj) 100 ml @ 200 mls/hr Q24H IV Last administered on 02/10/16at 05:23; Start 02/05/16 at 06:30; Stop at 14:32; Status DC Acetic Acid (Acetic Acid 0.25% Irr Btl) 10 ml Q8HR IRRIGATION ; Start 02/05/16 at 16:00; Status Cancel Acetic Acid (Acetic Acid 0.25% Irr Btl) 10 ml Q8HR IRRIGATION Last administered on 09/30/16t 06:10; Start 02/05/16 at 16:00 Lactobacillus Acidophilus (Lactinex) 1 tab Q12HR PO Last administered on at 08:25; Start 02/10/16 at 21:00; Stop 02/12/16 at 16:05; Status DC Warfarin Sodium (Coumadin) 4 mg DAILY@1600 PO Last administered on 02/14/16at 15 :56; Start 02/12/16 at 16:00; Stop 02/15/16 at 10:17; Status DC Paroxetine HCl (Paxil Liq) 20 mg DAILY PEG Last administered on 02/25/16at 07:33 ; Start 02/16/16 at 09:00; Stop 02/25/16 at 10:36; Status DC Warfarin Sodium (Coumadin) 3 mg DAILY@1600 PO Last administered on 02/19/16at 16: 42; Start 02/15/16 at 16:00; Stop 02/20/16 at 08:50; Status DC Warfarin Sodium (Coumadin) 4 mg DAILY@16 PO Last administered on 02/21/16at 15:54 ; Start 02/20/16 at 16:00; Stop 02/22/16 at 08:46; Status DC Sennosides (Senna Liq) 8.8 mg DAILY TUBE Last administered on 05/26/16at 08:14 ; Start 02/21/16 at 09:00; Stop 05/27/16 at 11:51; Status DC Albuterol Sulfate (Albuterol Neb) 2.5 mg QID NEB INH Last administered on at 19:51; Start 02/21/16 at 20:00; Stop 02/25/16 at 20:00; Status DC Acetylcysteine (Mucomyst 10% Neb) 1 ml QID NEB NEB Last administered on at 16:32; Start 02/21/16 at 20:00; Stop 02/23/16 at 16:01; Status DC Warfarin Sodium (Coumadin) 3 mg DAILY@16 PO Last administered on 02/22/16at 15:59 ; Start 02/22/16 at 16:00; Stop 02/23/16 at 08:56; Status DC Warfarin Sodium (Coumadin) 3 mg DAILY@16 PO Last administered on 02/28/16at 16: 17; Start 02/24/16 at 16:00; Stop 02/29/16 at 10:04; Status DC Warfarin Sodium (Coumadin) 2 mg ONCE PO Last administered on 02/23/16at 16:22; Start 02/23/16 at 16:00; Stop 02/23/16 at 21:00; Status DC Paroxetine HCl (Paxil Liq) 20 mg DAILY@1900 PEG Last administered on 03/08/16at 18:11; Start 02/26/16 at 19:00; Stop 03/09/16 at 11:31; Status DC Warfarin Sodium (Coumadin) 3 mg DAILY@16 PO Last administered on 03/06/16at 16: 22; Start 03/01/16 at 16:00; Stop 03/09/16 at 10:30; Status DC Warfarin Sodium (Coumadin) 1 mg ONCE PO Last administered on 02/29/16at 17:28; Start 02/29/16 at 16:00; Stop 02/29/16 at 21:00; Status DC Insulin Detemir (Levemir Inj) 27 units HS SQ Last administered on 03/05/16at 20: 25; Start 03/05/16 at 21:00; Stop 03/06/16 at 10:03; Status DC Patient Medication Teaching (Coumadin Booklet) 1 ONCE ONCE XX Last administered on 03/05/16at 16:00; Start 03/05/16 at 16:00; Stop 03/05/16 at 16:01 ; Status DC Insulin Detemir (Levemir Inj) 30 units HS SQ Last administered on 03/21/16at 22: 32; Start 03/06/16 at 21:00; Stop 03/22/16 at 14:48; Status DC Trimethoprim/ Sulfamethoxazole (Bactrim 800-160 Mg/20 ml Liq) 20 ml Q12HR PO Last administered on 03/14/16at 08:01; Start 03/07/16 at 11:15; Stop 03/14/16 at 11:14; Status DC Lorazepam (Ativan Inj) 0.5 mg Q4H PRN IV PUSH seizures or agitation; Start at 23:00 Metronidazole (Flagyl) 500 mg Q8H PO Last administered on 03/14/16at 15:51; Start 03/08/16 at 17:00; Stop 03/14/16 at 23:00; Status DC Warfarin Sodium (Coumadin) 2 mg DAILY@16 PO Last administered on 03/09/16at 17: 20; Start 03/09/16 at 16:00; Stop 03/10/16 at 10:33; Status DC Paroxetine HCl (Paxil) 20 mg DAILY@1900 PEG Last administered on 03/11/16at 17: 55; Start 03/09/16 at 19:00; Stop 03/12/16 at 08:31; Status DC Warfarin Sodium 3 mg 3 mg DAILY@16 PO Last administered on 04/12/16at 15:28; Start 03/10/16 at 16:00; Stop 04/12/16 at 16:39; Status DC Pharmacy Profile Note 0 ml @ 0 mls/hr UNSCH OTHER ; Start 03/10/16 at 14:15; Stop 03/18/16 at 11:33; Status DC Vancomycin HCl/ Sodium Chloride (Vancomycin Inj/ NS 500 ml Inj) 530 ml @ 265 mls/hr Q12H IV Last administered on 03/17/16at 16:26; Start 03/10/16 at 16:00; Stop 03/17/16 at 23:00; Status DC Miscellaneous Information SPECIFIC LAB TO BE ELISA... ONCE ONCE XX Last administered on 03/12/16at 04:45; Start 03/12/16 at 03:45; Stop 03/12/16 at 03:46 ; Status DC Metoprolol Tartrate (Lopressor) 75 mg Q8HR PO Last administered on 04/02/16at 13 :13; Start 03/10/16 at 22:00; Stop 04/02/16 at 17:31; Status DC Paroxetine HCl (Paxil Liq) 20 mg DAILY@1900 PEG Last administered on 09/29/16 18:50; Start 03/12/16 at 19:00 Warfarin Sodium (Coumadin) 1 mg ONCE PO Last administered on 03/21/16at 16:24; Start 03/21/16 at 16:00; Stop 03/21/16 at 21:00; Status DC Warfarin Sodium (Coumadin) 1 mg ONCE PO Last administered on 03/22/16at 17:46; Start 03/22/16 at 16:00; Stop 03/22/16 at 21:00; Status DC Insulin Detemir (Levemir Inj) 32 units HS SQ Last administered on 03/22/16at 20: 18; Start 03/22/16 at 21:00; Stop 03/23/16 at 13:35; Status DC Diltiazem HCl (Cardizem Cd) 120 mg DAILY PO Last administered on 04/14/16at 07: 43; Start 03/22/16 at 16:00; Stop 04/14/16 at 14:39; Status DC Hyoscyamine Sulfate (Levsin Liq) 0.125 mg Q4H PRN PEG INCREASED SECRETIONS Last administered on 04/10/16at 08:05; Start 03/22/16 at 15:15; Stop 04/11/16 at 10:24; Status DC Warfarin Sodium (Coumadin) 2 mg ONCE ONCE PO Last administered on 03/23/16at 17: 26; Start 03/23/16 at 16:00; Stop 03/23/16 at 16:01; Status DC Insulin Detemir (Levemir Inj) 34 units HS SQ Last administered on 03/23/16 20: 01; Start 03/23/16 at 21:00; Stop 03/24/16 at 13:53; Status DC Insulin Detemir (Levemir Inj) 35 units HS SQ Last administered on 09/29/16 21: 00; Start 03/24/16 at 21:00 Insulin Aspart (NovoLOG SUPPLEMENTAL SCALE) 1 ACHS SLIDING SCALE SQ Last administered on 04/16/16at 22:27; Start 03/24/16 at 16:00; Stop 04/19/16 at 17:19 ; Status DC Warfarin Sodium (Coumadin) 1 mg ONCE ONCE PO Last administered on 03/30/16at 16 :59; Start 03/30/16 at 16:00; Stop 03/30/16 at 16:01; Status DC Potassium Chloride (KCl 40 Meq/30 ml Liq) 40 meq ONCE ONCE NG Last administered on 03/31/16at 21:28; Start 03/31/16 at 18:30; Stop 03/31/16 at 18:31 ; Status DC Potassium Bicarb/ Potassium Chloride (K-Lyte Cl Eff) 25 meq ONCE ONCE PEG Last administered on 04/02/16at 12:01; Start 04/02/16 at 13:00; Stop 04/02/16 at 13:01; Status DC Metoprolol Tartrate (Lopressor) 75 mg BID PO Last administered on 05/28/16at 21: 03; Start 04/02/16 at 21:00; Stop 05/29/16 at 11:21; Status DC Potassium Bicarb/ Potassium Chloride (K-Lyte Cl Eff) 25 meq ONCE ONCE PEG Last administered on 04/04/16at 14:40; Start 04/04/16 at 12:30; Stop 04/04/16 at 12:31; Status DC Linezolid (Zyvox) 600 mg Q12HR PO Last administered on 04/16/16at 09:11; Start 04/05/16 at 15:00; Stop 04/16/16 at 12:00; Status DC Artificial Tears (Lacrilube Opht Oint) 1 applic Q12HR EACH EYE Last administered on 09/04/16 21:00; Start 04/10/16 at 11:00; Stop 09/05/16 at 14:38 ; Status DC Hyoscyamine Sulfate (Levsin) 0.25 mg Q4H PRN G-TUBE INCREASED SECRETIONS Last administered on 08/31/16 05:02; Start 04/11/16 at 10:30 Diatrizoate Meglum/ Diatrizoate Sod (Md Gastroview Liq) 18 ml ONCE ONCE PO Last administered on 04/12/16at 16:45; Start 04/12/16 at 16:15; Stop 04/12/16 at 16:16; Status DC Warfarin Sodium (Coumadin) 3 mg DAILY@16 PO ; Start 04/13/16 at 16:00; Stop 05/27/16 at 11:51; Status DC Iohexol (Omnipaque 350 Inj) 98 ml STK-MED ONCE IV Last administered on at 21:01; Start 04/12/16 at 21:01; Stop 04/12/16 at 21:02; Status DC Diltiazem HCl (Cardizem Cd) 180 mg DAILY PO ; Start 04/15/16 at 09:00; Stop at 08:50; Status DC Ondansetron HCl (Zofran Inj) 4 mg Q6HR PRN IV PUSH nausea/vomiting Last administered on 08/10/16t 10:16; Start 04/14/16 at 19:45 Diltiazem HCl 60 mg 60 mg QID PO Last administered on 04/25/16at 17:26; Start at 13:00; Stop 04/25/16 at 19:06; Status DC Sodium Chloride 500 ml @ 500 mls/hr BOLUS ONCE IV Last administered on at 09:15; Start 04/15/16 at 09:15; Stop 04/15/16 at 10:14; Status DC Potassium Chloride/Dextrose/ Sodium Chloride (KCl Inj/D5W-NS 1000 ml Inj) 1,005 ml @ 100 mls/hr Q10H3M IV Last administered on 04/15/16at 21:03; Start at 11:00; Stop 04/16/16 at 09:09; Status DC Enoxaparin Sodium (Lovenox Inj) 90 mg Q12H SQ Last administered on 04/16/16at 21 :12; Start 04/16/16 at 09:00; Stop 04/17/16 at 10:37; Status DC Water 200 ml 200 ml Q4HR TUBE Last administered on 09/30/16 08:00; Start 04/16 at 12:00 Sodium Chloride 1,000 ml @ 84 mls/hr [id number] IV Last administered on at 08:38; Start 04/16/16 at 10:00; Stop 04/20/16 at 12:04; Status DC Ceftriaxone Sodium/Sodium Chloride (Rocephin Inj/NS Inj) 100 ml @ 200 mls/hr Q24H IV Last administered on 05/02/16at 13:19; Start 04/16/16 at 12:00; Stop 05/03/16 at 12:06; Status DC Acetaminophen/ Hydrocodone Bitart ([place] 5-325 Mg) 1 tab Q6HR PEG Last administered on 09/17/16t 06:42; Start 04/18/16 at 18:00; Stop 09/17/16 at 09:17 ; Status DC Lactulose (Lactulose Liq) 30 ml NOW ONCE PEG Last administered on 04/19/16at 17 :21; Start 04/19/16 at 17:30; Stop 04/19/16 at 17:31; Status DC Lactulose (Lactulose Liq) 30 ml DAILY PEG Last administered on 05/26/16at 08:14 ; Start 04/20/16 at 09:00; Stop 05/27/16 at 11:39; Status DC Potassium Bicarb/ Potassium Chloride (K-Lyte Cl Eff) 50 meq ONCE ONCE PO Last administered on 04/20/16at 05:52; Start 04/20/16 at 05:45; Stop 04/20/16 at 05:46; Status DC Furosemide (Lasix Inj) 20 mg ONCE ONCE IV PUSH Last administered on 04/20/16at 17:35; Start 04/20/16 at 12:00; Stop 04/20/16 at 12:06; Status DC Insulin Aspart (NovoLOG SUPPLEMENTAL SCALE) 1 ACHS SLIDING SCALE SQ Last administered on 06/02/16at 12:10; Start 04/20/16 at 16:00; Stop 06/02/16 at 21: 44; Status DC Dextrose (D50w (Vial) Inj) 25 ml UNSCH PRN IV HYPOGLYCEMIA-SEE COMMENTS; Start 04/20/16 at 12:00 Glucagon (Glucagon Inj) 1 mg UNSCH PRN IM/SQ HYPOGLYCEMIA-SEE COMMENTS; Start 04/20/16 at 12:00 Lactobacillus Acidophilus (Lactinex) 1 tab Q12HR PEG Last administered on 06/06at 21:34; Start 04/22/16 at 09:00; Stop 06/07/16 at 09:32; Status DC Furosemide (Lasix Inj) 20 mg Q12H IV PUSH Last administered on 04/24/16at 08:52 ; Start 04/22/16 at 09:00; Stop 04/24/16 at 09:25; Status DC Potassium Bicarb/ Potassium Chloride (K-Lyte Cl Eff) 25 meq Q12HR TUBE Last administered on 05/27/16at 08:17; Start 04/22/16 at 09:00; Stop 05/27/16 at 11:51 ; Status DC Albumin Human (Albumin 25% Inj) 12.5 gm Q12H IV Last administered on 04/24/16at 08:46; Start 04/22/16 at 09:00; Stop 04/24/16 at 09:25; Status DC Furosemide (Lasix Inj) 20 mg DAILY IV PUSH Last administered on 05/08/16at 09: 01; Start 04/25/16 at 09:00; Stop 05/08/16 at 11:06; Status DC Albumin Human (Albumin 25% Inj) 12.5 gm DAILY IV Last administered on at 09:02; Start 04/25/16 at 10:00; Stop 05/08/16 at 11:06; Status DC Furosemide (Lasix Inj) 40 mg ONCE ONCE IV PUSH Last administered on 04/25/16at 18:15; Start 04/25/16 at 18:15; Stop 04/25/16 at 18:16; Status DC Albuterol/ Ipratropium (Duoneb Neb) 1 ampule Q6HR NEB NEB Last administered on 04/27/16at 15:52; Start 04/25/16 at 18:30; Stop 04/27/16 at 19:45; Status DC Ipratropium Constantia (Atrovent Neb) 0.5 mg Q6HR NEB NEB Last administered on at 16:51; Start 04/25/16 at 22:00; Stop 04/27/16 at 16:44; Status DC Levalbuterol HCl (Xopenex Neb) 0.31 mg Q4HR NEB NEB Last administered on at 23:48; Start 04/25/16 at 20:00; Stop 04/27/16 at 16:43; Status DC Levalbuterol HCl (Xopenex Neb) 0.31 mg Q2HR NEB PRN NEB SHORTNESS OF BREATH; Start 04/25/16 at 18:45; Stop 04/28/16 at 10:50; Status DC Diltiazem HCl (Cardizem) 90 mg QID PEG Last administered on 07/17/16at 09:27; Start 04/25/16 at 21:00; Stop 07/17/16 at 17:52; Status DC Diltiazem HCl (Cardizem) 30 mg NOW ONCE PEG Last administered on 04/25/16at 21: 36; Start 04/25/16 at 19:15; Stop 04/25/16 at 19:16; Status DC Levalbuterol HCl (Xopenex Neb) 0.31 mg Q8HR NEB NEB ; Start 04/28/16 at 00:00; Stop 04/28/16 at 10:50; Status DC Levalbuterol HCl (Xopenex Neb) 0.63 mg Q4HR NEB PRN NEB SHORTNESS OF BREATH Last administered on 05/04/16at 15:26; Start 04/28/16 at 11:00; Stop 05/04/16 at 00:51; Status DC Levalbuterol HCl (Xopenex Neb) 0.63 mg Q8HR NEB NEB Last administered on 05/04at 00:07; Start 04/28/16 at 16:00; Stop 05/04/16 at 00:50; Status DC Polyethylene Glycol/ Electrolytes 4000 ml 4,000 ml ONCE ONCE PO Last administered on 05/05/16at 08:10; Start 05/05/16 at 08:45; Stop 05/05/16 at 08 :46; Status DC Cefazolin Sodium/ Dextrose 50 ml @ 100 mls/hr ONCE ONCE IV ; Start 05/06/16 at 14:00; Stop 05/06/16 at 14:29; Status DC Metronidazole 100 ml @ 100 mls/hr ONCE ONCE IV Last administered on at 14:00; Start 05/06/16 at 14:00; Stop 05/06/16 at 14:59; Status DC Ceftriaxone Sodium/Sodium Chloride (Rocephin Inj/NS Inj) 100 ml @ 200 mls/hr Q24H IV Last administered on 06/09/16at 12:36; Start 05/03/16 at 12:00; Stop 06/10/16 at 12:48; Status DC Levalbuterol HCl (Xopenex Neb) 0.63 mg Q8HR NEB NEB Last administered on 05/05at 08:00; Start 05/04/16 at 00:49; Stop 05/05/16 at 08:07; Status DC Levalbuterol HCl (Xopenex Neb) 0.63 mg Q4HR NEB PRN NEB SHORTNESS OF BREATH Last administered on 08/02/16 13:48; Start 05/05/16 at 12:00 Levalbuterol HCl (Xopenex Neb) 0.63 mg Q8HR NEB NEB Last administered on 05/08at 23:56; Start 05/05/16 at 08:15; Stop 05/09/16 at 08:15; Status DC Potassium Bicarb/ Potassium Chloride (K-Lyte Cl Eff) 25 meq DAILY TUBE Last administered on 09/30/16 09:16; Start 05/28/16 at 09:00 Aspirin (Aspirin) 325 mg DAILY TUBE Last administered on 09/30/16 09:16; Start 05/27/16 at 11:40 Docusate Sodium (Colace Liq) 100 mg DAILY PRN PO constipation Last administered on 08/16/16 21:09; Start 05/27/16 at 11:45; Stop 08/31/16 at 09:00 ; Status DC Metoprolol Tartrate (Lopressor) 50 mg BID PO Last administered on 08/23/16 09: 03; Start 05/29/16 at 21:00; Stop 08/23/16 at 15:33; Status DC Acetaminophen/ Hydrocodone Bitart ([place] 5-325 Mg) 1 tab Q6H PRN TUBE BREAKTHROUGH PAIN Last administered on 08/02/16 15:11; Start 06/03/16 at 03:00 ; Stop 09/17/16 at 14:33; Status DC Insulin Aspart (NovoLOG SUPPLEMENTAL SCALE) 1 ACHS SLIDING SCALE SQ Last administered on 06/06/16at 21:35; Start 06/03/16 at 07:00; Stop 06/07/16 at 12 :24; Status DC Lactobacillus Acidophilus (Lactinex) 1 tab TID PEG Last administered on 09:16; Start 06/07/16 at 13:00 Insulin Aspart 1 1 AC BREAKFAST SQ Last administered on 09/29/16 05:06; Start 06/08/16 at 07:00 Ceftriaxone Sodium/Sodium Chloride (Rocephin Inj/NS Inj) 100 ml @ 200 mls/hr Q24H IV Last administered on 07/28/16 12:19; Start 06/10/16 at 12:00; Stop 07/29/16 at 13:30; Status DC Heparin Sodium (Porcine) (Heparin Inj) 5,000 units Q12HR SQ Last administered on 06/11/16at 00:58; Start 06/10/16 at 14:15; Stop 06/11/16 at 06:21; Status DC Heparin Sodium (Porcine) (Heparin Inj) 5,000 units Q8HR SQ Last administered on 09/30/16 06:10; Start 06/11/16 at 14:00 Diltiazem HCl (Cardizem) 30 mg QID PEG Last administered on 08/16/16 08:31; Start 07/17/16 at 18:00; Stop 08/16/16 at 12:06; Status DC Bacitracin 1 applic 1 applic BID TOP Last administered on 09/30/16 09:15; Start 07/20/16 at 10:00 Lactated Ringer's 1,000 ml @ 30 mls/hr Q24H IV ; Start 07/21/16 at 17:45; Stop 08/14/16 at 12:08; Status DC Sodium Chloride (NS 500 ml Inj) 500 ml @ 30 mls/hr [id number] IV ; Start 07/21/16 at 17:45; Stop 07/22/16 at 17:44; Status DC Insulin Human Regular (NovoLIN R INJ) See Protocol Table ... UNSCH X1 PRN SQ SEE PROTOCOL; Start 07/21/16 at 17:45; Stop 07/22/16 at 17:44; Status DC Metoprolol Tartrate (Lopressor) 25 mg UNSCH X1 PRN PO SEE LABEL COMMENTS; Start 07/21/16 at 17:45; Stop 07/22/16 at 17:44; Status DC Lidocaine/ Epinephrine (Xylocaine-Epi 1%-1:100,000 Inj) 40 ml STK-MED ONCE .ROUTE Last administered on 07/22/16 10:56; Start 07/22/16 at 10:04; Stop at 10:05; Status DC Ketamine HCl (Ketalar Inj) 500 mg STK-MED ONCE .ROUTE ; Start 07/22/16 at 10:50; Stop 07/22/16 at 10:51; Status DC Propofol 600 mg 600 mg STK-MED ONCE IV ; Start 07/22/16 at 12:00; Stop 07/23/16 at 14:36; Status DC Dextrose 1,000 ml @ 40 mls/hr Q24H ONCE IV Last administered on 07/28/16 14:33 ; Start 07/28/16 at 14:00; Stop 07/29/16 at 13:59; Status DC Ampicillin Sodium/ Sulbactam Sodium/ Sodium Chloride (Unasyn Inj/NS Inj) 100 ml @ 200 mls/hr Q6H IV Last administered on 08/01/16 12:30; Start 07/29/16 at 14: 00; Stop 08/01/16 at 14:13; Status DC Ondansetron HCl 4 mg 4 mg ONCE ONCE IV PUSH Last administered on 07/30/16 02: 46; Start 07/30/16 at 00:30; Stop 07/30/16 at 00:33; Status DC Lactated Ringer's 1,000 ml @ 30 mls/hr Q24H IV ; Start 07/30/16 at 06:00; Stop 08/14/16 at 12:09; Status DC Sodium Chloride (NS 500 ml Inj) 500 ml @ 30 mls/hr [id number] IV ; Start 07/30/16 at 06:00; Stop 07/31/16 at 05:59; Status DC Pantoprazole Sodium (Protonix Inj) 40 mg Q12H IV PUSH Last administered on 09/30 09:58; Start 07/30/16 at 10:15 Propofol 200 mg 200 mg STK-MED ONCE IV ; Start 07/30/16 at 09:41; Stop 07/30/16 at 10:19; Status DC Piperacillin Sod/ Tazobactam Sod (Zosyn 4.5 Gm Premix) 100 ml @ 200 mls/hr Q6H IV Last administered on 08/07/16 09:37; Start 08/01/16 at 16:00; Stop at 16:10; Status DC Linezolid (Zyvox) 600 mg Q12HR PO Last administered on 08/22/16 09:10; Start at 21:00; Stop 08/22/16 at 15:55; Status DC Sodium Chloride (Gregg Angel [place]) 1 spray BID NASAL Last administered on 09:00; Start 08/01/16 at 21:00 Metronidazole 500 mg 500 mg Q8H PO Last administered on 08/08/16 08:28; Start 08/07/16 at 16:00; Stop 08/08/16 at 16:10; Status DC Sodium Chloride (NS 1000 ml Inj) 1,000 ml @ 42 mls/hr [id number] IV Last administered on 08/14/16 12:44; Start 08/14/16 at 12:00; Stop 08/15/16 at 10:56 ; Status DC Fentanyl Citrate (fentaNYL INJ) 250 mcg STK-MED ONCE .ROUTE Last administered on 08/14/16 15:36; Start 08/14/16 at 15:36; Stop 08/14/16 at 15:37; Status DC Iohexol (Omnipaque 350 Inj) 30 ml STK-MED ONCE G-TUBE Last administered on 08/14 15:45; Start 08/14/16 at 15:52; Stop 08/14/16 at 15:53; Status DC Diltiazem HCl (Cardizem) 30 mg QID PEG Last administered on 09/30/16 09:16; Start 08/16/16 at 13:00 Polyethylene Glycol (Miralax) 17 gm ONCE ONCE PEG Last administered on 11:32; Start 08/17/16 at 12:00; Stop 08/17/16 at 12:01; Status DC Amoxicillin 500 mg 500 mg Q8HR PO Last administered on 09/30/16 06:10; Start 08/22/16 at 22:00 Cefepime HCl/ Sodium Chloride (Maxipime Inj/NS Inj) 100 ml @ 200 mls/hr Q8H IV Last administered on 09/03/16 10:46; Start 08/23/16 at 16:00; Stop 09/03/16 at 15:02; Status DC Metoprolol Tartrate (Lopressor) 75 mg BID PO Last administered on 09/13/16 08: 42; Start 08/23/16 at 21:00; Stop 09/13/16 at 13:09; Status DC Docusate Sodium (Colace Liq) 100 mg BID PO Last administered on 09/30/16 09:16 ; Start 08/30/16 at 21:00 Sennosides (Senokot) 17.2 mg DAILY PO Last administered on 09/25/16 08:36; Start 08/30/16 at 14:00; Stop 09/25/16 at 16:09; Status DC Lactulose (Lactulose Liq) 30 ml DAILY PO Last administered on 09/30/16 09:16; Start 09/02/16 at 15:30 Artificial Tears (Tears Naturale Opth Soln) 1 drop BID EACH EYE Last administered on 09/30/16 09:14; Start 09/05/16 at 21:00 Midazolam HCl (Versed Inj) 2 mg STK-MED ONCE .ROUTE Last administered on 11:37; Start 09/09/16 at 11:37; Stop 09/09/16 at 11:38; Status DC Fentanyl Citrate (fentaNYL INJ) 100 mcg STK-MED ONCE .ROUTE Last administered on 09/09/16 11:38; Start 09/09/16 at 11:38; Stop 09/09/16 at 11:39; Status DC Iohexol (Omnipaque 350 Inj) 20 ml STK-MED ONCE G-TUBE Last administered on 09/09 11:50; Start 09/09/16 at 11:50; Stop 09/09/16 at 12:15; Status DC Metoprolol Tartrate (Lopressor) 50 mg BID PO Last administered on 09/30/16 09: 16; Start 09/13/16 at 21:00 Acetaminophen/ Hydrocodone Bitart ([place] 5-325 Mg) 1 tab Q6H PEG ; Start at 11:00; Stop 09/17/16 at 14:25; Status DC Acetaminophen/ Hydrocodone Bitart ([place] 5-325 Mg) 1 tab DAILY@1600 PO ; Start 09/17/16 at 16:00; Stop 09/17/16 at 16:00; Status DC Morphine Sulfate (Morphine Inj) 1 mg Q24H PRN IV PUSH dressing change 30 min before Last administered on 09/24/16 08:34; Start 09/17/16 at 14:30 Acetaminophen/ Hydrocodone Bitart ([place] 5-325 Mg) 1 tab DAILY@0000 PO Last administered on 09/17/16 23:43; Start 09/18/16 at 00:00; Stop 09/20/16 at 12:46; Status DC Acetaminophen/ Hydrocodone Bitart ([place] 5-325 Mg) 1 tab Q8H PO Last administered on 09/30/16 06:09; Start 09/20/16 at 13:00 Ketoconazole (Nizoral 2% Cream) 1 applic Q12HR TOPICAL Last administered on 09:15; Start 09/24/16 at 21:00 Sennosides (Senna Liq) 8.8 mg DAILY@1600 PO Last administered on 09/29/16 18: 51; Start 09/25/16 at 17:00 Sodium Biphosphate/ Sodium Phosphate (Fleets Enema (Adult)) 133 ml UNSCH PRN [place] CONSTIPATION; Start 09/25/16 at 16:00 Bisacodyl (Dulcolax Supp) 10 mg DAILY PRN RECTAL CONSTIPATION; Start 09/26/16 at 15:30 Bisacodyl (Dulcolax Supp) 10 mg ONCE ONCE RECTAL Last administered on 16:10; Start 09/26/16 at 15:30; Stop 09/26/16 at 15:31; Status DC Date of Insertion: Aug 03, 2016 A/P Assessment and Plan A/P 60-year-old male with: 1. 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 Tracks with his eyes. Continue Keppra for seizure prophylaxis. PT/OT signed off as patient is unable to participate. -Need placement. Difficult. Appreciate case management assistance. 2. Chronic respiratory failure -Secondary to CVA. Status post tracheostomy. Continue pulmonary toilet and bronchodilators as needed. Continue trach care, suctioning. Levsin as needed. -Pulmonary currently following . Appreciate assistance. 3. Atrial fibrillation -Continue rate control with Cardizem and metoprolol. Echocardiogram in November 2015 shows preserved ejection fraction. Coumadin discontinued secondary to bleeding. Rate controlled. Continue aspirin and prophylactic heparin dose. 4. History of non-Hodgkin's lymphoma - Status post brain biopsy on December 13 by neurosurgery. Pathology consistent with acute infarct without evidence of lymphoma. Oncology has signed all 5. Diabetes mellitus -Hemoglobin A1c is 7. Continue Levemir. Monitor Accu-Cheks and cover with sliding scale insulin. Overall blood sugar continues well controlled. 6. Decubitus ulcer stage IV -Continue wound care, twice-daily dressing changes. Wound care recommendations. Continue pressure relief measures including turning and positioning. Patient's family has declined a diverting colostomy. Previous Wound culture growing Klebsiella. on Augmentin. Status post wide excision of sacral skin and biopsy of the cavity lining with debridement on 07/22/16. Continue scheduled [place] every 8 hours. -Continue to monitor for pain. 7. Gastric ulcer, reflux esophagitis - EGD on 07/30/16 showed gastric ulcers. Appreciate GI recommendations. Continue PPI. H&H stable as of last recheck.. 8. UTI pseudomonas aeruginosa treated with abx - Resolved. - Repeat Ucx 08/28/16 negative. 9. Constipation: -Having regular bowel movements. -on lactulose. Monitor. Discharge Planning dc planning to SNF-no funding- SSI pending. Medardo Au MD Sep 30, 2016 12:08
--- NOTE | 2016-09-30 15:37 | HHI.PR ---
Subjective Remarks no change on o2 , o2 SAT 95% trach ok Objective Vital Signs Date Time Temp Pulse Resp B/P Pulse Ox O2 Delivery O2 Flow Rate FiO2 09/30/16 13:10 104/66 09/30/16 12:25 97.9 81 20 118/75 95 09/30/16 09:40 98 T-piece 28 09/30/16 09:40 98 T-piece 28 09/30/16 08:17 98.4 89 20 121/74 98 09/30/16 08:00 90 09/30/16 04:00 97.4 88 20 120/73 100 09/30/16 00:00 97.3 77 18 120/76 98 09/29/16 21:00 T-Piece 6.00 28 09/29/16 21:00 78 09/29/16 20:53 98 T-piece 28 09/29/16 20:53 98 T-piece 28 09/29/16 20:00 97.0 80 18 118/74 97 09/29/16 16:55 100 T-piece 6.00 28 09/29/16 16:00 97.6 84 19 109/61 97 I/O 09/29/16 09/29/16 09/29/16 09/30/16 09/30/16 09/30/16 07:00 15:00 23:00 07:00 15:00 23:00 Intake Total 871 ml 900 ml 1000 ml Output Total 800 ml 700 ml 800 ml Balance 71 ml 200 ml -800 ml 1000 ml IV Total 0 ml 0 ml Tube Feeding 471 ml 450 ml 1000 ml Other 400 ml 450 ml Output Urine Total 800 ml 700 ml 800 ml # Bowel Movements 0 Procedures 01/02/16 PEG placement 01/02/16 tracheostomy 07/22/2016 Wide excision of sacral skin wound, biopsy of the cavity lining and debridement. PEG tube replacement 07/29/16 Objective Remarks GENERAL: SKIN: Warm and dry. HEAD: Atraumatic. Normocephalic. EYES: Pupils equal and round. No scleral icterus. No injection or drainage. ENT: No nasal bleeding or discharge. Mucous membranes pink and moist. NECK: Trachea midline. No JVD. TRACH. [place] CARDIOVASCULAR: Regular rate and rhythm. RESPIRATORY: No accessory muscle use. Clear to auscultation. Breath sounds equal bilaterally. GASTROINTESTINAL: Abdomen soft, non-tender, nondistended. Hepatic and splenic margins not palpable. MUSCULOSKELETAL: Extremities without clubbing, cyanosis, or edema. No obvious deformities. NEUROLOGICAL: Awake and alert. No obvious cranial nerve deficits. Motor grossly within normal limits. Five out of 5 muscle strength in the arms and legs. Normal speech. PSYCHIATRIC: Appropriate mood and affect; insight and judgment normal. Assessment and Plan Assessment and Plan impression respiratory failure CVA S/P TRACHEOSTOMY PLAN O2 NEEDED PULM. TOILET Brandon Taylor MD Sep 30, 2016 15:37
[2016-09-30] MEDS: SENNOSIDES SYRUP 8.8 MG/5 ML CUP PO SCH (16:00)
[2016-09-30] MEDS: PARoxetine HCL SUSP 20 MG/10 ML UDC PEG SCH (17:59)
[2016-09-30] MEDS: INSULIN DETEMIR 100 UNITS/ML VIAL SQ SCH (23:15)
[2016-10-01] VITALS (9 sets, daily range): BP systolic 107–129; BP diastolic 60–85; PULSE 78–93; RESP 18–20; TEMP 95.7–97.8; O2SAT 96–99
[2016-10-01] MEDS: FREE WATER TUBE SCH ×6 (04:00→23:57)
[2016-10-01] MEDS: ACETAMINOPHEN/HYDROcodone 325 MG/5 MG TAB PO SCH ×3 (05:00→23:30)
[2016-10-01] MEDS: HEPARIN SODIUM - SQ 10,000 UNITS/ML VIAL SQ SCH ×3 (06:00→23:30)
[2016-10-01] MEDS: ACETIC ACID 0.25% SOLN 1000 ML IRR BTL IRRIGATION SCH ×3 (06:00→23:32)
[2016-10-01] MEDS: AMOXICILLIN (TRIHYDRATE) 500 MG CAP PO SCH ×3 (06:00→23:29)
[2016-10-01] MEDS: INSULIN ASPART SUPPLEMENTAL SCALE SQ SCH (07:00)
[2016-10-01] MEDS: ARTIFICIAL TEARS OPTH SOLN 15 ML BTL EACH EYE SCH ×2 (08:47→23:31)
[2016-10-01] MEDS: BACITRACIN TOP OINT 15 GM TUBE TOP SCH ×2 (08:47→23:32)
[2016-10-01] MEDS: SODIUM CHLORIDE 0.65% NASAL SPRAY 45 ML BTL NASAL SCH ×2 (08:47→21:00)
[2016-10-01] MEDS: KETOCONAZOLE 2% CREAM 15 GM TOPICAL SCH ×2 (08:47→23:32)
[2016-10-01] MEDS: ASPIRIN 325 MG TAB TUBE SCH (08:48)
[2016-10-01] MEDS: NYSTATIN 100,000 U/GM PWD 15 GM BTL TOPICAL SCH ×2 (08:48→23:32)
[2016-10-01] MEDS: levETIRAcetam 500 MG/5 ML UDC TUBE SCH ×2 (08:48→23:29)
[2016-10-01] MEDS: LACTULOSE SYRUP 20 GM/30 ML CUP PO SCH (08:48)
[2016-10-01] MEDS: DILTIAZEM HCL 30 MG TAB PEG SCH ×4 (08:49→21:00)
[2016-10-01] MEDS: LACTOBACILLUS ACIDOPHILUS TAB PEG SCH ×3 (08:49→16:01)
[2016-10-01] MEDS: DOCUSATE SODIUM 100 MG/10 ML UDC PO SCH ×2 (08:49→23:29)
[2016-10-01] MEDS: POTASSIUM CHLORIDE 25 MEQ EFFERVESCENT TAB TUBE SCH (08:49)
[2016-10-01] MEDS: METOPROLOL TARTRATE 50 MG TAB PO SCH ×2 (08:49→21:00)
[2016-10-01] MEDS: PANTOPRAZOLE SODIUM 40 MG VIAL IV PUSH SCH ×2 (09:49→23:29)
--- NOTE | 2016-10-01 13:25 | HHI.PR ---
Subjective Remarks in no acute distress. afebrile. Objective Vitals Vital Signs Date Time Temp Pulse Resp B/P Pulse Ox O2 Delivery O2 Flow Rate FiO2 10/01/16 12:13 96.7 79 20 112/71 96 10/01/16 07:30 95.7 93 20 126/73 98 10/01/16 06:00 19 10/01/16 05:15 84 10/01/16 04:00 96.7 91 18 120/60 99 10/01/16 03:20 98 T-Piece 6.00 10/01/16 00:00 97.8 83 20 129/85 97 09/30/16 20:29 98 T-piece 28 09/30/16 20:29 98 T-piece 28 09/30/16 20:15 98 T-Piece 6.00 09/30/16 20:00 96.3 81 18 100/ 12 09/30/16 16:08 97.8 78 20 92/68 97 I/O 09/30/16 09/30/16 09/30/16 10/01/16 10/01/16 10/01/16 07:00 15:00 23:00 07:00 15:00 23:00 Intake Total 1000 ml 200 ml 1200 ml Output Total 800 ml 700 ml 1000 ml 300 ml Balance -800 ml 300 ml -800 ml -300 ml 1200 ml Tube Feeding 1000 ml 1000 ml Other 200 ml 200 ml Output Urine Total 800 ml 700 ml 1000 ml 300 ml # Bowel Movements 1 Imaging Last Impressions Tube Change 09/09/16 1011 Signed Impressions: Service Date/Time: Friday, September 09, 2016 11:27 - CONCLUSION: Occluded jejunal port of the GJ tube. Uncomplicated gastrojejunostomy tube exchange as above. Jonel Jones Jr., MD Abdomen X-Ray 08/31/16 0000 Signed Impressions: Service Date/Time: Wednesday, August 31, 2016 16:36 - CONCLUSION: 1. No acute findings. Mild constipation. Durga Dotson MD Chest X-Ray 08/23/16 0000 Signed Impressions: Service Date/Time: Tuesday, August 23, 2016 16:06 - CONCLUSION: Minimal basilar right lung opacity likely representing atelectasis. Kwasi James MD Abdomen/Pelvis CT 04/12/16 0000 Signed Impressions: Service Date/Time: Tuesday, April 12, 2016 20:52 - CONCLUSION: 1. 6.4 cm necrotic mass or abscess in the soft tissues posteriorly just below the sacrum associated with some bony destructive change of the lower most sacrum and coccyx with inflammatory changes extending into the ischiorectal fossa and into the presacral retroperitoneum predominantly on the left side. There is associated fairly marked mural thickening of the anal verge and rectum. 2. There is gastrostomy and Arevalo catheter present. Stable abdominal aortic aneurysm. Durga Dotson MD Head Magnetic Resonance Angiography 03/05/16 0000 Signed Impressions: Service Date/Time: Saturday, March 05, 2016 09:26 - CONCLUSION: Persistent high-grade subtotal occlusive stenotic lesions in the distal right vertebral artery and proximal basilar artery with significant improvement in flow and recanalization following initial presentation of thrombosis. Stable interstitial circulation without significant stenosis. 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 There is decreasing restricted diffusion and increasing loss of volume characteristic of a subacute to chronic infarct. No evidence of acute infarct, acute hemorrhage mass or edema. Ernesto Kulkarni MD Head CT 01/16/16 0000 Signed Impressions: Service Date/Time: Saturday, January 16, 2016 10:51 - CONCLUSION: No extensive low density in the brainstem colin more prominent in the right the left extending into the right middle cerebellar peduncle consistent with brainstem infarct nonhemorrhagic acute Wellington West MD Neck Magnetic Resonance Angiography 12/22/15 1445 Signed Impressions: Service Date/Time: Tuesday, December 22, 2015 09:22 - CONCLUSION: Variant origin of the left vertebral artery from the aortic arch. No evidence of carotid stenosis. Glen Zamora MD Head/Brain Mag Res Venography 12/22/15 0000 Signed Impressions: Service Date/Time: Tuesday, December 22, 2015 09:22 - CONCLUSION: Normal MRV. Jonel Jones Jr., MD Objective Remarks GENERAL: on Trach- in no apparent distress. CARDIOVASCULAR: Regular rate and regular rhythm without murmurs, gallops, or rubs. RESPIRATORY: Clear to auscultation. Breath sounds equal bilaterally. No wheezes , rales, or rhonchi. GASTROINTESTINAL: Abdomen soft, non-tender,distended. hypoactive bowel sounds-PEG in place MUSCULOSKELETAL: Extremities without clubbing, cyanosis, or edema. NEURO: awake Procedures 01/02/16 PEG placement 01/02/16 tracheostomy 07/22/2016 Wide excision of sacral skin wound, biopsy of the cavity lining and debridement. PEG tube replacement 07/29/16 Medications and IVs Current Medications IV Flush (NS Flush) 2 ml UNSCH PRN IVF FLUSH AFTER USING IV ACCESS Last administered on 09/28/16t 21:18; Start 12/21/15 at 06:00 Ondansetron HCl (Zofran Inj) 4 mg STK-MED ONCE .ROUTE ; Start 12/21/15 at 06:22; Stop 12/21/15 at 06:23; Status DC Ondansetron HCl (Zofran Inj) 4 mg ONCE ONCE IV PUSH Last administered on at 06:43; Start 12/21/15 at 06:30; Stop 12/21/15 at 06:31; Status DC Diltiazem HCl 20 mg 20 mg ONCE ONCE IV Last administered on 12/21/15at 06:42; Start 12/21/15 at 06:30; Stop 12/21/15 at 06:31; Status DC Diltiazem HCl/ Sodium Chloride (Cardizem Inj/NS Inj) 125 ml @ 0 mls/hr TITRATE IV Last administered on 12/21/15at 06:47; Start 12/21/15 at 06:30; Stop 12/21/15 at 13:00; Status DC Acetaminophen (Tylenol) 650 mg ONCE ONCE PO ; Start 12/21/15 at 06:45; Stop 12/20 at 06:46; Status DC Lorazepam (Ativan Inj) 1 mg ONCE ONCE IV PUSH Last administered on 12/21/15at 07 :22; Start 12/21/15 at 07:15; Stop 12/21/15 at 07:16; Status DC Etomidate (Amidate Inj) 40 mg STK-MED ONCE .ROUTE Last administered on at 08:17; Start 12/21/15 at 07:37; Stop 12/21/15 at 07:38; Status DC Succinylcholine Chloride 200 mg 200 mg STK-MED ONCE .ROUTE Last administered on 12/21/15 08:18; Start 12/21/15 at 07:37; Stop 12/21/15 at 07:38; Status DC Propofol (Diprivan 1000 Mg/100ml Inj) 100 ml @ As Directed STK-MED ONCE .ROUTE Last administered on 12/21/15at 08:19; Start 12/21/15 at 07:46; Stop 12/21/15 at 07:47; Status DC Propofol (Diprivan 1000 Mg/100ml Inj) search Sets for Drip. NOW PRN IV SEDATION Last administered on 12/22/15at 06:25; Start 12/21/15 at 08:30; Stop 12/28 at 15:43; Status DC Gadodiamide (Omniscan Pf Inj) 18 ml STK-MED ONCE IV Last administered on at 10:11; Start 12/21/15 at 10:11; Stop 12/21/15 at 10:12; Status DC Pantoprazole Sodium (Protonix Inj) 40 mg DAILY IV Last administered on at 07:39; Start 12/21/15 at 13:00; Stop 01/03/16 at 10:10; Status DC Albuterol/ Ipratropium (Duoneb Neb) 1 ampule Q6HR NEB INH Last administered on 12/25/15 07:51; Start 12/21/15 at 13:00; Stop 12/25/15 at 13:00; Status DC Miscellaneous Information 1 [id number] Last administered on 12/21/15at 13:00; Start 12/21/15 at 13:00; Stop 01/12/16 at 11:47; Status DC Chlorhexidine Gluconate (Chlorhexidine 2% Cloth) 3 pack Taper DAILY@04 TOP Last administered on 01/11/16at 04:10; Start 12/22/15 at 04:00; Stop 01/12/16 at 11:47; Status DC Chlorhexidine Gluconate 3 pack 3 pack UNSCH PRN TOP HYGIENIC CARE; Start at 13:00; Stop 01/12/16 at 11:47; Status DC Sodium Chloride (NS 1000 ml Inj) 1,000 ml @ 75 mls/hr [id number] IV Last administered on 12/22/15at 17:00; Start 12/21/15 at 13:00; Stop 12/22/15 at 19:01; Status DC Dextrose (D50w (Vial) Inj) 25 ml UNSCH PRN IV PUSH HYPOGLYCEMIA-SEE COMMENTS; Start 12/21/15 at 13:00; Stop 04/19/16 at 17:19; Status DC Glucagon (Glucagon Inj) 1 mg UNSCH PRN OTHER HYPOGLYCEMIA-SEE COMMENTS; Start 12/21/15 at 13:00; Stop 04/19/16 at 17:19; Status DC Insulin Human Regular (NovoLIN R SUPPLEMENTAL SCALE) 1 Q6H SQ Last administered on 01/04/16at 06:31; Start 12/21/15 at 13:00; Stop 01/04/16 at 10:05 ; Status DC Levetriacetam (Keppra) 500 mg Q12HR PO Last administered on 12/27/15at 09:00; Start 12/21/15 at 13:45; Stop 12/27/15 at 09:44; Status DC Heparin Sodium (Porcine) (Heparin Inj) 5,000 units BID SQ Last administered on 12/22/15at 20:52; Start 12/21/15 at 21:00; Stop 12/23/15 at 08:32; Status DC Warfarin Sodium (Coumadin) 7.5 mg ONCE ONCE PO Last administered on 12/21/15at 21:43; Start 12/21/15 at 21:00; Stop 12/21/15 at 21:01; Status DC Warfarin Sodium (Coumadin) 5 mg DAILY@16 PO Last administered on 12/23/15at 16:00 ; Start 12/22/15 at 16:00; Stop 12/26/15 at 09:29; Status DC Patient Medication Teaching (Coumadin Booklet) 1 ONCE ONCE XX Last administered on 12/21/15at 20:15; Start 12/21/15 at 20:15; Stop 12/21/15 at 20:16; Status DC Chlorhexidine Gluconate (Peridex 0.12% Liq) 15 ml BID@08,20 MT Last administered on 01/12/16at 08:00; Start 12/22/15 at 20:00; Stop 01/12/16 at 11:47 ; Status DC Gadodiamide 20 ml 20 ml STK-MED ONCE IV Last administered on 12/22/15at 09:55; Start 12/22/15 at 09:55; Stop 12/22/15 at 09:56; Status DC Pharmacy Profile Note ml @ 0 mls/hr UNSCH OTHER ; Start 12/22/15 at 11:00; Stop 12/22/15 at 19:43; Status DC Sodium Chloride 1,000 ml @ 50 mls/hr Q20H IV Last administered on 12/24/15at 20: 02; Start 12/22/15 at 18:44; Stop 12/25/15 at 11:52; Status DC Pharmacy Profile Note (Coumadin Consult Pharmacy) 0 ml @ 0 mls/hr UNSCH OTHER ; Start 12/22/15 at 19:45; Stop 01/04/16 at 12:25; Status DC Acetaminophen 650 mg 650 mg Q6H PRN PO TEMP > 100 Last administered on at 13:24; Start 12/23/15 at 02:45; Stop 12/30/15 at 15:04; Status DC Potassium Chloride 100 ml @ 50 mls/hr Q2H PRN IV For Potassium 2.8 - 3.2 mEq/L ; Start 12/23/15 at 08:30; Stop 01/09/16 at 11:14; Status DC Potassium Chloride (KCl 20 Meq Premix Inj) 100 ml @ 50 mls/hr Q2H PRN IV For Potassium 2.8 - 3.2 mEq/L; Start 12/23/15 at 08:30; Stop 01/09/16 at 11:14; Status DC Potassium Chloride 40 meq 40 meq UNSCH PRN PO/TUBE For Potassium 3.3 - 3.5 mEq/ L; Start 12/23/15 at 08:30; Stop 01/09/16 at 11:14; Status DC Potassium Chloride 100 ml @ 25 mls/hr UNSCH PRN IV For Potassium 3.3 - 3.5 mEq /L; Start 12/23/15 at 08:30; Stop 01/09/16 at 11:14; Status DC Potassium Chloride 100 ml @ 50 mls/hr Q2H PRN IV For Potassium 3.3 - 3.5 mEq/L ; Start 12/23/15 at 08:30; Stop 01/09/16 at 11:14; Status DC Magnesium Sulfate/ Sodium Chloride (Magnesium Sulfate Inj/NS Inj) 100 ml @ 50 mls/hr UNSCH PRN IV For Magnesium 0.9 - 1.1 mg/dL; Start 12/23/15 at 08:30; Stop 01/09/16 at 11:14; Status DC Magnesium Oxide 800 mg 800 mg UNSCH PRN PO For Magnesium 1.2 - 1.6 mg/dL; Start 12/23/15 at 08:30; Stop 01/09/16 at 11:14; Status DC Magnesium Sulfate/ Sodium Chloride (Magnesium Sulfate Inj/NS Inj) 100 ml @ 50 mls/hr UNSCH PRN IV For Magnesium 1.2 - 1.6 mg/dL; Start 12/23/15 at 08:30; Stop 01/09/16 at 11:14; Status DC Potassium Phosphate 2000 mg 2,000 mg Q4H PRN PO For Phosphorus < 2.5 mg/dL; Start 12/23/15 at 08:30; Stop 01/09/16 at 11:14; Status DC Sodium Phosphate/ Sodium Chloride (Sodium Phosphate Inj/NS 250 ml Inj) 250 ml @ 42 mls/hr UNSCH PRN IV For Phosphorus < 2.5 mg/dL; Start 12/23/15 at 08:30; Stop 01/09/16 at 11:14; Status DC Potassium Chloride (KCl 40 Meq/30 ml Liq) 40 meq UNSCH PRN PO/TUBE SEE LABEL COMMENTS; Start 12/23/15 at 08:30; Stop 01/09/16 at 11:14; Status DC Potassium Phosphate 2000 mg 2,000 mg UNSCH PRN PO/TUBE SEE LABEL COMMENTS; Start 12/23/15 at 08:30; Stop 01/09/16 at 11:14; Status DC Potassium Phosphate 30 mmol/ Sodium Chloride 260 ml @ 42 mls/hr UNSCH PRN IV SEE LABEL COMMENTS; Start 12/23/15 at 08:30; Stop 01/09/16 at 11:14; Status DC Sodium Chloride 1,000 ml @ 75 mls/hr [id number] IV ; Start 12/23/15 at 08:30; Stop 12/23/15 at 08:30; Status DC Piperacillin Sod/ Tazobactam Sod 50 ml @ 100 mls/hr Q6H IV Last administered on 12/30/15at 10:02; Start 12/23/15 at 10:00; Stop 12/30/15 at 14:50; Status DC Vancomycin HCl/ Sodium Chloride (Vancomycin Inj/ NS 250 ml Inj) 250 ml @ 250 mls/hr Q12H IV Last administered on 12/29/15at 09:01; Start 12/24/15 at 08:45; Stop 12/29/15 at 15:33; Status DC Warfarin Sodium (Coumadin) 4 mg DAILY@16 PO Last administered on 12/28/15at 16:00 ; Start 12/26/15 at 16:00; Stop 01/04/16 at 12:25; Status DC Levetriacetam (Keppra Liq) 500 mg Q12HR TUBE Last administered on 10/01/16t 08 :48; Start 12/27/15 at 21:00 Docusate Sodium (Colace Liq) 100 mg Q12HR TUBE Last administered on 01/15/16at 09:01; Start 12/27/15 at 21:00; Stop 04/16/16 at 08:50; Status DC Sennosides (Senna Liq) 8.8 mg DAILY TUBE Last administered on 01/15/16at 09:01 ; Start 12/27/15 at 17:00; Stop 01/15/16 at 20:37; Status DC Bisacodyl (Dulcolax Supp) 10 mg ONCE ONCE RECTAL ; Start 12/27/15 at 16:15; Stop 12/27/15 at 16:15; Status DC Albuterol/ Ipratropium (Duoneb Neb) 1 ampule Q4HR NEB PRN NEB RESPIRATORY DISTRESS Last administered on 12/29/15at 12:17; Start 12/27/15 at 22:00; Stop at 08:16; Status DC Bisacodyl (Dulcolax Supp) 10 mg ONCE ONCE RECTAL ; Start 12/28/15 at 12:00; Stop 12/28/15 at 12:01; Status DC Sodium Chloride (Sodium Chloride) 1 gm BID TUBE Last administered on 12/29/15at 09:02; Start 12/28/15 at 21:00; Stop 12/29/15 at 15:43; Status DC Lactulose (Lactulose Liq) 30 ml DAILY TUBE Last administered on 12/29/15at 09:02 ; Start 12/28/15 at 20:30; Stop 12/29/15 at 15:43; Status DC Levofloxacin (Levaquin) 750 mg DAILY@16 TUBE ; Start 12/29/15 at 16:00; Stop 05/05 at 16:00; Status DC Sodium Chloride (Sodium Chloride) 1 gm DAILY TUBE Last administered on at 07:29; Start 12/30/15 at 09:00; Stop 12/31/15 at 14:08; Status DC Water 200 ml 200 ml Q6HR G-TUBE Last administered on 12/31/15at 04:19; Start 06/05 at 14:45; Stop 12/31/15 at 07:31; Status DC Ceftriaxone Sodium/Sodium Chloride (Rocephin Inj/NS Inj) 100 ml @ 200 mls/hr Q12H IV Last administered on 01/03/16at 02:47; Start 12/30/15 at 15:00; Stop at 10:09; Status DC Acetaminophen (Tylenol 650 Mg/ 20 ml Liq) 650 mg Q6H PRN TUBE TEMP >100.4 Last administered on 08/23/16t 12:52; Start 12/30/15 at 15:15 Lactobacillus Acidophilus (Lactinex Pkt) 1 gm BID TUBE Last administered on at 09:00; Start 12/30/15 at 21:00; Stop 02/10/16 at 14:30; Status DC Enoxaparin Sodium (Lovenox Inj) 90 mg Q12H SQ Last administered on 01/01/16at 21 :57; Start 12/31/15 at 08:00; Stop 01/03/16 at 10:33; Status DC Water (Free Water) 100 ml Q12H G-TUBE ; Start 12/31/15 at 18:00; Stop 12/31/15 at 18:00; Status DC Acetaminophen/ Hydrocodone Bitart ([place] 5-325 Mg) 1 tab Q6H PRN PO PAIN Last administered on 05/26/16at 20:46; Start 12/31/15 at 15:00; Stop 06/02/16 at 21: 44; Status DC Fentanyl Citrate (Sublimaze Inj) 25 mcg Q1H PRN IV PUSH BREAKTHROUGH PAIN; Start 12/31/15 at 15:00; Stop 03/06/16 at 10:03; Status DC Water (Free Water) 200 ml Q8H G-TUBE Last administered on 01/01/16at 17:55; Start 12/31/15 at 18:00; Stop 01/02/16 at 09:56; Status DC Sodium Chloride (Sodium Chloride) 1 gm BID TUBE Last administered on 01/03/16at 07:39; Start 12/31/15 at 21:00; Stop 01/03/16 at 09:08; Status DC Miscellaneous Information Hold Anticoagulation after midni... ONCE ONCE OTHER ; Start 01/01/16 at 10:15; Stop 01/01/16 at 10:29; Status DC Sodium Chloride (NS 1000 ml Inj) 1,000 ml @ 50 mls/hr Q20H IV Last administered on 01/02/16at 12:26; Start 01/01/16 at 18:00; Stop 01/03/16 at 10:07 ; Status DC Midazolam HCl (Versed Inj) 5 mg STK-MED ONCE .ROUTE ; Start 01/02/16 at 12:47; Stop 01/02/16 at 12:48; Status DC Vecuronium [place] (Norcuron 10 Mg Inj) 10 mg STK-MED ONCE .ROUTE ; Start at 12:47; Stop 01/02/16 at 12:48; Status DC Fentanyl Citrate (Sublimaze Inj) 250 mcg ONCE ONCE IV PUSH Last administered on 01/02/16at 15:00; Start 01/02/16 at 15:00; Stop 01/02/16 at 15:01; Status DC Midazolam HCl (Versed Inj) 10 mg ONCE ONCE IV PUSH Last administered on at 15:00; Start 01/02/16 at 15:00; Stop 01/02/16 at 15:01; Status DC Rocuronium [place] (Zemuron Inj) 100 mg BOLUS ONCE IV Last administered on at 15:00; Start 01/02/16 at 15:00; Stop 01/02/16 at 15:01; Status DC Ketamine HCl (Ketalar Inj) 500 mg STK-MED ONCE .ROUTE ; Start 01/02/16 at 14:30 ; Stop 01/02/16 at 14:31; Status DC Propofol 230 mg 230 mg STK-MED ONCE IV ; Start 01/02/16 at 16:51; Stop 01/02/16 at 16:52; Status DC Sodium Chloride (NS 1000 ml Inj) 1,000 ml @ 0 mls/hr Q0M IV ; Start 01/03/16 at 10:15; Stop 01/17/16 at 17:30; Status DC Ranitidine HCl (Zantac Liq) 150 mg Q12HR PO Last administered on 01/17/16at 07: 39; Start 01/04/16 at 09:00; Stop 01/17/16 at 15:23; Status DC Enoxaparin Sodium 90 mg 90 mg Q12HR SQ Last administered on 01/11/16at 10:01; Start 01/04/16 at 09:00; Stop 01/11/16 at 12:35; Status DC Sodium Chloride (NS 500 ml Inj) 500 ml @ 0 mls/hr BOLUS ONCE IV Last administered on 01/03/16at 22:57; Start 01/03/16 at 23:00; Stop 01/03/16 at 23:01 ; Status DC Insulin Aspart (NovoLOG SUPPLEMENTAL SCALE) 1 Q6HR SQ Last administered on at 12:00; Start 01/04/16 at 12:00; Stop 03/24/16 at 13:58; Status DC Potassium Chloride (KCl 40 Meq/30 ml Liq) 40 meq Q4H NG Last administered on at 16:21; Start 01/04/16 at 13:00; Stop 01/04/16 at 17:01; Status DC Warfarin Sodium 5 mg 5 mg DAILY@1600 PO Last administered on 01/09/16at 17:21; Start 01/04/16 at 16:00; Stop 01/10/16 at 10:06; Status DC Pharmacy Profile Note (Coumadin Consult Pharmacy) 0 ml @ 0 mls/hr UNSCH XX ; Start 01/04/16 at 12:30; Stop 04/20/16 at 12:04; Status DC Insulin Detemir (Levemir Inj) 10 units Q12HR SQ Last administered on 01/05/16at 08:00; Start 01/04/16 at 21:00; Stop 01/05/16 at 08:42; Status DC Insulin Detemir (Levemir Inj) 5 units NOW ONCE SQ Last administered on at 13:28; Start 01/04/16 at 12:45; Stop 01/04/16 at 12:46; Status DC Albuterol/ Ipratropium (Duoneb Neb) 1 ampule Q4HR NEB PRN NEB dyspnea Last administered on 04/19/16at 02:24; Start 01/07/16 at 08:15; Stop 04/25/16 at 18:54 ; Status DC Warfarin Sodium (Coumadin) 7.5 mg ONCE ONCE PO Last administered on 01/07/16at 16:40; Start 01/07/16 at 16:00; Stop 01/07/16 at 16:01; Status DC Nystatin (Mycostatin Powder) 1 applic Q12HR TOPICAL Last administered on t 08:48; Start 01/08/16 at 21:00 Ipratropium [place] (Atrovent Neb) 0.5 mg TID NEB NEB Last administered on 02/20at 13:17; Start 01/08/16 at 20:00; Stop 02/21/16 at 17:52; Status DC Warfarin Sodium (Coumadin) 5 mg DAILY@1600 PO Last administered on 01/11/16at 14 :26; Start 01/11/16 at 16:00; Stop 01/12/16 at 09:45; Status DC Warfarin Sodium (Coumadin) 6 mg ONCE PO Last administered on 01/10/16at 17:10; Start 01/10/16 at 16:00; Stop 01/10/16 at 21:00; Status DC Metoprolol Tartrate (Lopressor) 50 mg Q12HR GT Last administered on 01/11/16at 10:02; Start 01/10/16 at 11:00; Stop 01/11/16 at 12:30; Status DC Metoprolol Tartrate (Lopressor) 50 mg TID GT Last administered on 01/14/16at 08: 24; Start 01/11/16 at 13:00; Stop 01/14/16 at 08:28; Status DC Insulin Detemir (Levemir Inj) 10 units HS SQ Last administered on 01/11/16at 22: 23; Start 01/11/16 at 21:00; Stop 01/12/16 at 11:47; Status DC Warfarin Sodium (Coumadin) 4 mg DAILY@16 PO ; Start 01/12/16 at 16:00; Stop at 16:00; Status DC Insulin Detemir (Levemir Inj) 20 units HS SQ Last administered on 01/13/16at 20: 26; Start 01/12/16 at 21:00; Stop 01/14/16 at 08:28; Status DC Warfarin Sodium (Coumadin) 2 mg DAILY@16 PO Last administered on 01/13/16at 17: 05; Start 01/12/16 at 16:00; Stop 01/14/16 at 11:23; Status DC Insulin Detemir (Levemir Inj) 22 units HS SQ Last administered on 01/14/16at 21: 37; Start 01/14/16 at 21:00; Stop 01/15/16 at 10:06; Status DC Metoprolol Tartrate (Lopressor) 75 mg TID GT Last administered on 03/10/16at 17: 43; Start 01/14/16 at 09:00; Stop 03/10/16 at 21:13; Status DC Miscellaneous (Pill Splitter) 1 ea UNSCH PRN OTHER SEE LABEL COMMENTS; Start at 08:30 Warfarin Sodium (Coumadin) 4 mg DAILY@1600 PO Last administered on 01/21/16at 16: 51; Start 01/14/16 at 16:00; Stop 01/23/16 at 09:29; Status DC Patient Medication Teaching (Coumadin Booklet) 1 ONCE ONCE XX ; Start 01/14/16 at 16:00; Stop 01/14/16 at 16:01; Status DC Insulin Detemir (Levemir Inj) 24 units HS SQ Last administered on 03/04/16at 21: 09; Start 01/15/16 at 21:00; Stop 03/05/16 at 11:17; Status DC Citalopram Hydrobromide (CeleXA) 20 mg DAILY PEG Last administered on at 08:01; Start 01/16/16 at 09:00; Stop 01/16/16 at 09:41; Status DC Sennosides (Senna Liq) 8.8 mg BID TUBE Last administered on 02/20/16at 08:32; Start 01/15/16 at 21:00; Stop 02/20/16 at 16:13; Status DC Gadodiamide 18 ml 18 ml STK-MED ONCE IV ; Start 01/16/16 at 20:40; Stop at 20:41; Status DC Sodium Chloride (NS 1000 ml Inj) 1,000 ml @ 125 mls/hr Q8H IV Last administered on 01/17/16at 15:11; Start 01/17/16 at 15:00; Stop 01/17/16 at 17:31 ; Status DC Ranitidine HCl 150 mg 150 mg Q24H PO Last administered on 07/28/16t 08:54; Start 01/18/16 at 09:00; Stop 07/30/16 at 10:05; Status DC Sodium Chloride 1,000 ml @ 75 mls/hr [id number] IV Last administered on at 05:22; Start 01/17/16 at 18:00; Stop 01/18/16 at 09:28; Status DC Sodium Chloride/ Sterile Water (Sodium Chloride 23.4% Inj/Sterile Water For Inj ) 1,009.625 ml @ 60 mls/hr [id number] IV Last administered on 01/21/16at 22:46; Start 01/18/16 at 11:00; Stop 01/22/16 at 10:09; Status DC Potassium Chloride (KCl) 40 meq ONCE ONCE PO ; Start 01/18/16 at 09:30; Stop at 09:31; Status DC Potassium Chloride (KCl 40 Meq/30 ml Liq) 40 meq ONCE ONCE TUBE Last administered on 01/18/16at 11:08; Start 01/18/16 at 11:00; Stop 01/18/16 at 11:01 ; Status DC Water (Free Water) 300 ml Q4HR TUBE Last administered on 01/19/16at 08:00; Start 01/18/16 at 12:00; Stop 01/19/16 at 10:43; Status DC Water (Free Water) 400 ml Q4HR TUBE Last administered on 04/16/16at 04:00; Start 01/19/16 at 12:00; Stop 04/16/16 at 09:09; Status DC Potassium Chloride (KCl 40 Meq/30 ml Liq) 40 meq ONCE ONCE NG Last administered on 01/19/16at 11:41; Start 01/19/16 at 11:00; Stop 01/19/16 at 11:01; Status DC Potassium Chloride 60 meq 60 meq ONCE ONCE PO/TUBE Last administered on at 13:30; Start 01/21/16 at 11:15; Stop 01/21/16 at 11:27; Status DC Sodium Chloride (1/2 NS 1000 ml Inj) 1,000 ml @ 30 mls/hr Q24H IV Last administered on 02/06/16at 11:26; Start 01/22/16 at 11:00; Stop 02/07/16 at 14:49 ; Status DC Warfarin Sodium (Coumadin) 3 mg DAILY@16 PO Last administered on 01/23/16at 17:19 ; Start 01/23/16 at 16:00; Stop 01/24/16 at 14:05; Status DC Warfarin Sodium (Coumadin) 3 mg DAILY@16 PO Last administered on 01/25/16at 15:59 ; Start 01/25/16 at 16:00; Stop 01/26/16 at 15:04; Status DC Warfarin Sodium (Coumadin) 4 mg ONCE@1600 ONCE PO Last administered on at 16:55; Start 01/24/16 at 16:00; Stop 01/24/16 at 16:01; Status DC Warfarin Sodium (Coumadin) 3 mg DAILY@16 PO ; Start 01/27/16 at 16:00; Stop at 16:00; Status DC Warfarin Sodium (Coumadin) 4 mg ONCE@1600 ONCE PO Last administered on at 16:52; Start 01/26/16 at 16:00; Stop 01/26/16 at 16:01; Status DC Potassium Chloride (KCl 40 Meq/30 ml Liq) 80 meq ONCE ONCE PO Last administered on 01/27/16at 07:45; Start 01/27/16 at 07:45; Stop 01/27/16 at 08:10; Status DC Warfarin Sodium (Coumadin) 4 mg DAILY@16 PO Last administered on 02/02/16at 17: 22; Start 01/27/16 at 16:00; Stop 02/03/16 at 11:37; Status DC Acetic Acid (Acetic Acid 0.25% Irr Btl) 10 ml Q8HR IRRIGATION Last administered on 02/05/16at 06:00; Start 01/28/16 at 22:00; Stop 02/05/16 at 15:51 ; Status DC Warfarin Sodium 3 mg 3 mg DAILY@1600 PO Last administered on 02/11/16at 17:34; Start 02/03/16 at 16:00; Stop 02/12/16 at 12:45; Status DC Ceftriaxone Sodium/Sodium Chloride (Rocephin Inj/NS Inj) 100 ml @ 200 mls/hr Q24H IV Last administered on 02/10/16at 05:23; Start 02/05/16 at 06:30; Stop at 14:32; Status DC Acetic Acid (Acetic Acid 0.25% Irr Btl) 10 ml Q8HR IRRIGATION ; Start 02/05/16 at 16:00; Status Cancel Acetic Acid (Acetic Acid 0.25% Irr Btl) 10 ml Q8HR IRRIGATION Last administered on 10/01/16t 12:18; Start 02/05/16 at 16:00 Lactobacillus Acidophilus (Lactinex) 1 tab Q12HR PO Last administered on at 08:25; Start 02/10/16 at 21:00; Stop 02/12/16 at 16:05; Status DC Warfarin Sodium (Coumadin) 4 mg DAILY@1600 PO Last administered on 02/14/16at 15 :56; Start 02/12/16 at 16:00; Stop 02/15/16 at 10:17; Status DC Paroxetine HCl (Paxil Liq) 20 mg DAILY PEG Last administered on 02/25/16at 07:33 ; Start 02/16/16 at 09:00; Stop 02/25/16 at 10:36; Status DC Warfarin Sodium (Coumadin) 3 mg DAILY@1600 PO Last administered on 02/19/16at 16: 42; Start 02/15/16 at 16:00; Stop 02/20/16 at 08:50; Status DC Warfarin Sodium (Coumadin) 4 mg DAILY@16 PO Last administered on 02/21/16at 15:54 ; Start 02/20/16 at 16:00; Stop 02/22/16 at 08:46; Status DC Sennosides (Senna Liq) 8.8 mg DAILY TUBE Last administered on 05/26/16at 08:14 ; Start 02/21/16 at 09:00; Stop 05/27/16 at 11:51; Status DC Albuterol Sulfate (Albuterol Neb) 2.5 mg QID NEB INH Last administered on at 19:51; Start 02/21/16 at 20:00; Stop 02/25/16 at 20:00; Status DC Acetylcysteine (Mucomyst 10% Neb) 1 ml QID NEB NEB Last administered on at 16:32; Start 02/21/16 at 20:00; Stop 02/23/16 at 16:01; Status DC Warfarin Sodium (Coumadin) 3 mg DAILY@16 PO Last administered on 02/22/16at 15:59 ; Start 02/22/16 at 16:00; Stop 02/23/16 at 08:56; Status DC Warfarin Sodium (Coumadin) 3 mg DAILY@16 PO Last administered on 02/28/16at 16: 17; Start 02/24/16 at 16:00; Stop 02/29/16 at 10:04; Status DC Warfarin Sodium (Coumadin) 2 mg ONCE PO Last administered on 02/23/16at 16:22; Start 02/23/16 at 16:00; Stop 02/23/16 at 21:00; Status DC Paroxetine HCl (Paxil Liq) 20 mg DAILY@1900 PEG Last administered on 03/08/16at 18:11; Start 02/26/16 at 19:00; Stop 03/09/16 at 11:31; Status DC Warfarin Sodium (Coumadin) 3 mg DAILY@16 PO Last administered on 03/06/16at 16: 22; Start 03/01/16 at 16:00; Stop 03/09/16 at 10:30; Status DC Warfarin Sodium (Coumadin) 1 mg ONCE PO Last administered on 02/29/16at 17:28; Start 02/29/16 at 16:00; Stop 02/29/16 at 21:00; Status DC Insulin Detemir (Levemir Inj) 27 units HS SQ Last administered on 03/05/16at 20: 25; Start 03/05/16 at 21:00; Stop 03/06/16 at 10:03; Status DC Patient Medication Teaching (Coumadin Booklet) 1 ONCE ONCE XX Last administered on 03/05/16at 16:00; Start 03/05/16 at 16:00; Stop 03/05/16 at 16:01 ; Status DC Insulin Detemir (Levemir Inj) 30 units HS SQ Last administered on 03/21/16at 22: 32; Start 03/06/16 at 21:00; Stop 03/22/16 at 14:48; Status DC Trimethoprim/ Sulfamethoxazole (Bactrim 800-160 Mg/20 ml Liq) 20 ml Q12HR PO Last administered on 03/14/16at 08:01; Start 03/07/16 at 11:15; Stop 03/14/16 at 11:14; Status DC Lorazepam (Ativan Inj) 0.5 mg Q4H PRN IV PUSH seizures or agitation; Start at 23:00 Metronidazole (Flagyl) 500 mg Q8H PO Last administered on 03/14/16at 15:51; Start 03/08/16 at 17:00; Stop 03/14/16 at 23:00; Status DC Warfarin Sodium (Coumadin) 2 mg DAILY@16 PO Last administered on 03/09/16at 17: 20; Start 03/09/16 at 16:00; Stop 03/10/16 at 10:33; Status DC Paroxetine HCl (Paxil) 20 mg DAILY@1900 PEG Last administered on 03/11/16at 17: 55; Start 03/09/16 at 19:00; Stop 03/12/16 at 08:31; Status DC Warfarin Sodium 3 mg 3 mg DAILY@16 PO Last administered on 04/12/16at 15:28; Start 03/10/16 at 16:00; Stop 04/12/16 at 16:39; Status DC Pharmacy Profile Note 0 ml @ 0 mls/hr UNSCH OTHER ; Start 03/10/16 at 14:15; Stop 03/18/16 at 11:33; Status DC Vancomycin HCl/ Sodium Chloride (Vancomycin Inj/ NS 500 ml Inj) 530 ml @ 265 mls/hr Q12H IV Last administered on 03/17/16at 16:26; Start 03/10/16 at 16:00; Stop 03/17/16 at 23:00; Status DC Miscellaneous Information SPECIFIC LAB TO BE ... ONCE ONCE XX Last administered on 03/12/16at 04:45; Start 03/12/16 at 03:45; Stop 03/12/16 at 03:46 ; Status DC Metoprolol Tartrate (Lopressor) 75 mg Q8HR PO Last administered on 04/02/16at 13 :13; Start 03/10/16 at 22:00; Stop 04/02/16 at 17:31; Status DC Paroxetine HCl (Paxil Liq) 20 mg DAILY@1900 PEG Last administered on 09/30/16 17:59; Start 03/12/16 at 19:00 Warfarin Sodium (Coumadin) 1 mg ONCE PO Last administered on 03/21/16at 16:24; Start 03/21/16 at 16:00; Stop 03/21/16 at 21:00; Status DC Warfarin Sodium (Coumadin) 1 mg ONCE PO Last administered on 03/22/16 17:46; Start 03/22/16 at 16:00; Stop 03/22/16 at 21:00; Status DC Insulin Detemir (Levemir Inj) 32 units HS SQ Last administered on 03/22/16at 20: 18; Start 03/22/16 at 21:00; Stop 03/23/16 at 13:35; Status DC Diltiazem HCl (Cardizem Cd) 120 mg DAILY PO Last administered on 04/14/16at 07: 43; Start 03/22/16 at 16:00; Stop 04/14/16 at 14:39; Status DC Hyoscyamine Sulfate (Levsin Liq) 0.125 mg Q4H PRN PEG INCREASED SECRETIONS Last administered on 04/10/16at 08:05; Start 03/22/16 at 15:15; Stop 04/11/16 at 10:24; Status DC Warfarin Sodium (Coumadin) 2 mg ONCE ONCE PO Last administered on 03/23/16 17: 26; Start 03/23/16 at 16:00; Stop 03/23/16 at 16:01; Status DC Insulin Detemir (Levemir Inj) 34 units HS SQ Last administered on 03/23/16at 20: 01; Start 03/23/16 at 21:00; Stop 03/24/16 at 13:53; Status DC Insulin Detemir (Levemir Inj) 35 units HS SQ Last administered on 09/30/16t 23: 15; Start 03/24/16 at 21:00 Insulin Aspart (NovoLOG SUPPLEMENTAL SCALE) 1 ACHS SLIDING SCALE SQ Last administered on 9/27/16at 22:27; Start 03/24/16 at 16:00; Stop 04/19/16 at 17:19 ; Status DC Warfarin Sodium (Coumadin) 1 mg ONCE ONCE PO Last administered on 03/30/16at 16 :59; Start 03/30/16 at 16:00; Stop 03/30/16 at 16:01; Status DC Potassium Chloride (KCl 40 Meq/30 ml Liq) 40 meq ONCE ONCE NG Last administered on 03/31/16at 21:28; Start 03/31/16 at 18:30; Stop 03/31/16 at 18:31 ; Status DC Potassium Bicarb/ Potassium Chloride (K-Lyte Cl Eff) 25 meq ONCE ONCE PEG Last administered on 04/02/16at 12:01; Start 04/02/16 at 13:00; Stop 04/02/16 at 13:01; Status DC Metoprolol Tartrate (Lopressor) 75 mg BID PO Last administered on 05/28/16at 21: 03; Start 04/02/16 at 21:00; Stop 05/29/16 at 11:21; Status DC Potassium Bicarb/ Potassium Chloride (K-Lyte Cl Eff) 25 meq ONCE ONCE PEG Last administered on 04/04/16at 14:40; Start 04/04/16 at 12:30; Stop 04/04/16 at 12:31; Status DC Linezolid (Zyvox) 600 mg Q12HR PO Last administered on 04/16/16at 09:11; Start 04/05/16 at 15:00; Stop 04/16/16 at 12:00; Status DC Artificial Tears (Lacrilube Opht Oint) 1 applic Q12HR EACH EYE Last administered on 09/04/16 21:00; Start 04/10/16 at 11:00; Stop 09/05/16 at 14:38 ; Status DC Hyoscyamine Sulfate (Levsin) 0.25 mg Q4H PRN G-TUBE INCREASED SECRETIONS Last administered on 08/31/16 05:02; Start 04/11/16 at 10:30 Diatrizoate Meglum/ Diatrizoate Sod (Md Gastroview Liq) 18 ml ONCE ONCE PO Last administered on 04/12/16at 16:45; Start 04/12/16 at 16:15; Stop 04/12/16 at 16:16; Status DC Warfarin Sodium (Coumadin) 3 mg DAILY@16 PO ; Start 04/13/16 at 16:00; Stop 05/27/16 at 11:51; Status DC Iohexol (Omnipaque 350 Inj) 98 ml STK-MED ONCE IV Last administered on at 21:01; Start 04/12/16 at 21:01; Stop 04/12/16 at 21:02; Status DC Diltiazem HCl (Cardizem Cd) 180 mg DAILY PO ; Start 04/15/16 at 09:00; Stop at 08:50; Status DC Ondansetron HCl (Zofran Inj) 4 mg Q6HR PRN IV PUSH nausea/vomiting Last administered on 08/10/16t 10:16; Start 04/14/16 at 19:45 Diltiazem HCl 60 mg 60 mg QID PO Last administered on 04/25/16at 17:26; Start at 13:00; Stop 04/25/16 at 19:06; Status DC Sodium Chloride 500 ml @ 500 mls/hr BOLUS ONCE IV Last administered on at 09:15; Start 04/15/16 at 09:15; Stop 04/15/16 at 10:14; Status DC Potassium Chloride/Dextrose/ Sodium Chloride (KCl Inj/D5W-NS 1000 ml Inj) 1,005 ml @ 100 mls/hr Q10H3M IV Last administered on 04/15/16at 21:03; Start at 11:00; Stop 04/16/16 at 09:09; Status DC Enoxaparin Sodium (Lovenox Inj) 90 mg Q12H SQ Last administered on 04/16/16at 21 :12; Start 04/16/16 at 09:00; Stop 04/17/16 at 10:37; Status DC Water 200 ml 200 ml Q4HR TUBE Last administered on 10/01/16t 11:09; Start 04/16 at 12:00 Sodium Chloride 1,000 ml @ 84 mls/hr [id number] IV Last administered on at 08:38; Start 04/16/16 at 10:00; Stop 04/20/16 at 12:04; Status DC Ceftriaxone Sodium/Sodium Chloride (Rocephin Inj/NS Inj) 100 ml @ 200 mls/hr Q24H IV Last administered on 05/02/16at 13:19; Start 04/16/16 at 12:00; Stop 05/03/16 at 12:06; Status DC Acetaminophen/ Hydrocodone Bitart ([place] 5-325 Mg) 1 tab Q6HR PEG Last administered on 09/17/16t 06:42; Start 04/18/16 at 18:00; Stop 09/17/16 at 09:17 ; Status DC Lactulose (Lactulose Liq) 30 ml NOW ONCE PEG Last administered on 04/19/16at 17 :21; Start 04/19/16 at 17:30; Stop 04/19/16 at 17:31; Status DC Lactulose (Lactulose Liq) 30 ml DAILY PEG Last administered on 05/26/16at 08:14 ; Start 04/20/16 at 09:00; Stop 05/27/16 at 11:39; Status DC Potassium Bicarb/ Potassium Chloride (K-Lyte Cl Eff) 50 meq ONCE ONCE PO Last administered on 04/20/16at 05:52; Start 04/20/16 at 05:45; Stop 04/20/16 at 05:46; Status DC Furosemide (Lasix Inj) 20 mg ONCE ONCE IV PUSH Last administered on 04/20/16at 17:35; Start 04/20/16 at 12:00; Stop 04/20/16 at 12:06; Status DC Insulin Aspart (NovoLOG SUPPLEMENTAL SCALE) 1 ACHS SLIDING SCALE SQ Last administered on 06/02/16at 12:10; Start 04/20/16 at 16:00; Stop 06/02/16 at 21: 44; Status DC Dextrose (D50w (Vial) Inj) 25 ml UNSCH PRN IV HYPOGLYCEMIA-SEE COMMENTS; Start 04/20/16 at 12:00 Glucagon (Glucagon Inj) 1 mg UNSCH PRN IM/SQ HYPOGLYCEMIA-SEE COMMENTS; Start 04/20/16 at 12:00 Lactobacillus Acidophilus (Lactinex) 1 tab Q12HR PEG Last administered on 06/06at 21:34; Start 04/22/16 at 09:00; Stop 06/07/16 at 09:32; Status DC Furosemide (Lasix Inj) 20 mg Q12H IV PUSH Last administered on 04/24/16at 08:52 ; Start 04/22/16 at 09:00; Stop 04/24/16 at 09:25; Status DC Potassium Bicarb/ Potassium Chloride (K-Lyte Cl Eff) 25 meq Q12HR TUBE Last administered on 05/27/16at 08:17; Start 04/22/16 at 09:00; Stop 05/27/16 at 11:51 ; Status DC Albumin Human (Albumin 25% Inj) 12.5 gm Q12H IV Last administered on 04/24/16at 08:46; Start 04/22/16 at 09:00; Stop 04/24/16 at 09:25; Status DC Furosemide (Lasix Inj) 20 mg DAILY IV PUSH Last administered on 05/08/16at 09: 01; Start 04/25/16 at 09:00; Stop 05/08/16 at 11:06; Status DC Albumin Human (Albumin 25% Inj) 12.5 gm DAILY IV Last administered on at 09:02; Start 04/25/16 at 10:00; Stop 05/08/16 at 11:06; Status DC Furosemide (Lasix Inj) 40 mg ONCE ONCE IV PUSH Last administered on 04/25/16at 18:15; Start 04/25/16 at 18:15; Stop 04/25/16 at 18:16; Status DC Albuterol/ Ipratropium (Duoneb Neb) 1 ampule Q6HR NEB NEB Last administered on 04/27/16at 15:52; Start 04/25/16 at 18:30; Stop 04/27/16 at 19:45; Status DC Ipratropium [place] (Atrovent Neb) 0.5 mg Q6HR NEB NEB Last administered on at 16:51; Start 04/25/16 at 22:00; Stop 04/27/16 at 16:44; Status DC Levalbuterol HCl (Xopenex Neb) 0.31 mg Q4HR NEB NEB Last administered on at 23:48; Start 04/25/16 at 20:00; Stop 04/27/16 at 16:43; Status DC Levalbuterol HCl (Xopenex Neb) 0.31 mg Q2HR NEB PRN NEB SHORTNESS OF BREATH; Start 04/25/16 at 18:45; Stop 04/28/16 at 10:50; Status DC Diltiazem HCl (Cardizem) 90 mg QID PEG Last administered on 07/17/16at 09:27; Start 04/25/16 at 21:00; Stop 07/17/16 at 17:52; Status DC Diltiazem HCl (Cardizem) 30 mg NOW ONCE PEG Last administered on 04/25/16at 21: 36; Start 04/25/16 at 19:15; Stop 04/25/16 at 19:16; Status DC Levalbuterol HCl (Xopenex Neb) 0.31 mg Q8HR NEB NEB ; Start 04/28/16 at 00:00; Stop 04/28/16 at 10:50; Status DC Levalbuterol HCl (Xopenex Neb) 0.63 mg Q4HR NEB PRN NEB SHORTNESS OF BREATH Last administered on 05/04/16at 15:26; Start 04/28/16 at 11:00; Stop 05/04/16 at 00:51; Status DC Levalbuterol HCl (Xopenex Neb) 0.63 mg Q8HR NEB NEB Last administered on 05/04at 00:07; Start 04/28/16 at 16:00; Stop 05/04/16 at 00:50; Status DC Polyethylene Glycol/ Electrolytes 4000 ml 4,000 ml ONCE ONCE PO Last administered on 05/05/16at 08:10; Start 05/05/16 at 08:45; Stop 05/05/16 at 08 :46; Status DC Cefazolin Sodium/ Dextrose 50 ml @ 100 mls/hr ONCE ONCE IV ; Start 05/06/16 at 14:00; Stop 05/06/16 at 14:29; Status DC Metronidazole 100 ml @ 100 mls/hr ONCE ONCE IV Last administered on at 14:00; Start 05/06/16 at 14:00; Stop 05/06/16 at 14:59; Status DC Ceftriaxone Sodium/Sodium Chloride (Rocephin Inj/NS Inj) 100 ml @ 200 mls/hr Q24H IV Last administered on 06/09/16at 12:36; Start 05/03/16 at 12:00; Stop 06/10/16 at 12:48; Status DC Levalbuterol HCl (Xopenex Neb) 0.63 mg Q8HR NEB NEB Last administered on 05/05at 08:00; Start 05/04/16 at 00:49; Stop 05/05/16 at 08:07; Status DC Levalbuterol HCl (Xopenex Neb) 0.63 mg Q4HR NEB PRN NEB SHORTNESS OF BREATH Last administered on 08/02/16 13:48; Start 05/05/16 at 12:00 Levalbuterol HCl (Xopenex Neb) 0.63 mg Q8HR NEB NEB Last administered on 05/08at 23:56; Start 05/05/16 at 08:15; Stop 05/09/16 at 08:15; Status DC Potassium Bicarb/ Potassium Chloride (K-Lyte Cl Eff) 25 meq DAILY TUBE Last administered on 10/01/16 08:49; Start 05/28/16 at 09:00 Aspirin (Aspirin) 325 mg DAILY TUBE Last administered on 10/01/16 08:48; Start 05/27/16 at 11:40 Docusate Sodium (Colace Liq) 100 mg DAILY PRN PO constipation Last administered on 08/16/16 21:09; Start 05/27/16 at 11:45; Stop 08/31/16 at 09:00 ; Status DC Metoprolol Tartrate (Lopressor) 50 mg BID PO Last administered on 08/23/16 09: 03; Start 05/29/16 at 21:00; Stop 08/23/16 at 15:33; Status DC Acetaminophen/ Hydrocodone Bitart ([place] 5-325 Mg) 1 tab Q6H PRN TUBE BREAKTHROUGH PAIN Last administered on 08/02/16 15:11; Start 06/03/16 at 03:00 ; Stop 09/17/16 at 14:33; Status DC Insulin Aspart (NovoLOG SUPPLEMENTAL SCALE) 1 ACHS SLIDING SCALE SQ Last administered on 06/06/16at 21:35; Start 06/03/16 at 07:00; Stop 06/07/16 at 12 :24; Status DC Lactobacillus Acidophilus (Lactinex) 1 tab TID PEG Last administered on 12:17; Start 06/07/16 at 13:00 Insulin Aspart 1 1 AC BREAKFAST SQ Last administered on 09/29/16 05:06; Start 06/08/16 at 07:00 Ceftriaxone Sodium/Sodium Chloride (Rocephin Inj/NS Inj) 100 ml @ 200 mls/hr Q24H IV Last administered on 07/28/16 12:19; Start 06/10/16 at 12:00; Stop 07/29/16 at 13:30; Status DC Heparin Sodium (Porcine) (Heparin Inj) 5,000 units Q12HR SQ Last administered on 06/11/16at 00:58; Start 06/10/16 at 14:15; Stop 06/11/16 at 06:21; Status DC Heparin Sodium (Porcine) (Heparin Inj) 5,000 units Q8HR SQ Last administered on 10/01/16 12:17; Start 06/11/16 at 14:00 Diltiazem HCl (Cardizem) 30 mg QID PEG Last administered on 08/16/16 08:31; Start 07/17/16 at 18:00; Stop 08/16/16 at 12:06; Status DC Bacitracin 1 applic 1 applic BID TOP Last administered on 10/01/16 08:47; Start 07/20/16 at 10:00 Lactated Ringer's 1,000 ml @ 30 mls/hr Q24H IV ; Start 07/21/16 at 17:45; Stop 08/14/16 at 12:08; Status DC Sodium Chloride (NS 500 ml Inj) 500 ml @ 30 mls/hr [id number] IV ; Start 07/21/16 at 17:45; Stop 07/22/16 at 17:44; Status DC Insulin Human Regular (NovoLIN R INJ) See Protocol Table ... UNSCH X1 PRN SQ SEE PROTOCOL; Start 07/21/16 at 17:45; Stop 07/22/16 at 17:44; Status DC Metoprolol Tartrate (Lopressor) 25 mg UNSCH X1 PRN PO SEE LABEL COMMENTS; Start 07/21/16 at 17:45; Stop 07/22/16 at 17:44; Status DC Lidocaine/ Epinephrine (Xylocaine-Epi 1%-1:100,000 Inj) 40 ml STK-MED ONCE .ROUTE Last administered on 07/22/16 10:56; Start 07/22/16 at 10:04; Stop at 10:05; Status DC Ketamine HCl (Ketalar Inj) 500 mg STK-MED ONCE .ROUTE ; Start 07/22/16 at 10:50; Stop 07/22/16 at 10:51; Status DC Propofol 600 mg 600 mg STK-MED ONCE IV ; Start 07/22/16 at 12:00; Stop 07/23/16 at 14:36; Status DC Dextrose 1,000 ml @ 40 mls/hr Q24H ONCE IV Last administered on 07/28/16 14:33 ; Start 07/28/16 at 14:00; Stop 07/29/16 at 13:59; Status DC Ampicillin Sodium/ Sulbactam Sodium/ Sodium Chloride (Unasyn Inj/NS Inj) 100 ml @ 200 mls/hr Q6H IV Last administered on 08/01/16 12:30; Start 07/29/16 at 14: 00; Stop 08/01/16 at 14:13; Status DC Ondansetron HCl 4 mg 4 mg ONCE ONCE IV PUSH Last administered on 07/30/16 02: 46; Start 07/30/16 at 00:30; Stop 07/30/16 at 00:33; Status DC Lactated Ringer's 1,000 ml @ 30 mls/hr Q24H IV ; Start 07/30/16 at 06:00; Stop 08/14/16 at 12:09; Status DC Sodium Chloride (NS 500 ml Inj) 500 ml @ 30 mls/hr [id number] IV ; Start 07/30/16 at 06:00; Stop 07/31/16 at 05:59; Status DC Pantoprazole Sodium (Protonix Inj) 40 mg Q12H IV PUSH Last administered on 10/01 09:49; Start 07/30/16 at 10:15 Propofol 200 mg 200 mg STK-MED ONCE IV ; Start 07/30/16 at 09:41; Stop 07/30/16 at 10:19; Status DC Piperacillin Sod/ Tazobactam Sod (Zosyn 4.5 Gm Premix) 100 ml @ 200 mls/hr Q6H IV Last administered on 08/07/16 09:37; Start 08/01/16 at 16:00; Stop at 16:10; Status DC Linezolid (Zyvox) 600 mg Q12HR PO Last administered on 08/22/16 09:10; Start at 21:00; Stop 08/22/16 at 15:55; Status DC Sodium Chloride ([place]) 1 spray BID NASAL Last administered on 08:47; Start 08/01/16 at 21:00 Metronidazole 500 mg 500 mg Q8H PO Last administered on 08/08/16 08:28; Start 08/07/16 at 16:00; Stop 08/08/16 at 16:10; Status DC Sodium Chloride (NS 1000 ml Inj) 1,000 ml @ 42 mls/hr [id number] IV Last administered on 08/14/16 12:44; Start 08/14/16 at 12:00; Stop 08/15/16 at 10:56 ; Status DC Fentanyl Citrate (fentaNYL INJ) 250 mcg STK-MED ONCE .ROUTE Last administered on 08/14/16 15:36; Start 08/14/16 at 15:36; Stop 08/14/16 at 15:37; Status DC Iohexol (Omnipaque 350 Inj) 30 ml STK-MED ONCE G-TUBE Last administered on 08/14 15:45; Start 08/14/16 at 15:52; Stop 08/14/16 at 15:53; Status DC Diltiazem HCl (Cardizem) 30 mg QID PEG Last administered on 10/01/16 08:49; Start 08/16/16 at 13:00 Polyethylene Glycol (Miralax) 17 gm ONCE ONCE PEG Last administered on 11:32; Start 08/17/16 at 12:00; Stop 08/17/16 at 12:01; Status DC Amoxicillin 500 mg 500 mg Q8HR PO Last administered on 10/01/16 12:16; Start 08/22/16 at 22:00 Cefepime HCl/ Sodium Chloride (Maxipime Inj/NS Inj) 100 ml @ 200 mls/hr Q8H IV Last administered on 09/03/16 10:46; Start 08/23/16 at 16:00; Stop 09/03/16 at 15:02; Status DC Metoprolol Tartrate (Lopressor) 75 mg BID PO Last administered on 09/13/16 08: 42; Start 08/23/16 at 21:00; Stop 09/13/16 at 13:09; Status DC Docusate Sodium (Colace Liq) 100 mg BID PO Last administered on 10/01/16 08:49 ; Start 08/30/16 at 21:00 Sennosides (Senokot) 17.2 mg DAILY PO Last administered on 09/25/16 08:36; Start 08/30/16 at 14:00; Stop 09/25/16 at 16:09; Status DC Lactulose (Lactulose Liq) 30 ml DAILY PO Last administered on 10/01/16 08:48; Start 09/02/16 at 15:30 Artificial Tears (Tears Naturale Opth Soln) 1 drop BID EACH EYE Last administered on 10/01/16 08:47; Start 09/05/16 at 21:00 Midazolam HCl (Versed Inj) 2 mg STK-MED ONCE .ROUTE Last administered on 11:37; Start 09/09/16 at 11:37; Stop 09/09/16 at 11:38; Status DC Fentanyl Citrate (fentaNYL INJ) 100 mcg STK-MED ONCE .ROUTE Last administered on 09/09/16 11:38; Start 09/09/16 at 11:38; Stop 09/09/16 at 11:39; Status DC Iohexol (Omnipaque 350 Inj) 20 ml STK-MED ONCE G-TUBE Last administered on 09/09 11:50; Start 09/09/16 at 11:50; Stop 09/09/16 at 12:15; Status DC Metoprolol Tartrate (Lopressor) 50 mg BID PO Last administered on 10/01/16 08: 49; Start 09/13/16 at 21:00 Acetaminophen/ Hydrocodone Bitart ([place] 5-325 Mg) 1 tab Q6H PEG ; Start at 11:00; Stop 09/17/16 at 14:25; Status DC Acetaminophen/ Hydrocodone Bitart ([place] 5-325 Mg) 1 tab DAILY@1600 PO ; Start 09/17/16 at 16:00; Stop 09/17/16 at 16:00; Status DC Morphine Sulfate (Morphine Inj) 1 mg Q24H PRN IV PUSH dressing change 30 min before Last administered on 09/24/16 08:34; Start 09/17/16 at 14:30 Acetaminophen/ Hydrocodone Bitart ([place] 5-325 Mg) 1 tab DAILY@0000 PO Last administered on 09/17/16 23:43; Start 09/18/16 at 00:00; Stop 09/20/16 at 12:46; Status DC Acetaminophen/ Hydrocodone Bitart ([place] 5-325 Mg) 1 tab Q8H PO Last administered on 10/01/16 12:17; Start 09/20/16 at 13:00 Ketoconazole (Nizoral 2% Cream) 1 applic Q12HR TOPICAL Last administered on 08:47; Start 09/24/16 at 21:00 Sennosides (Senna Liq) 8.8 mg DAILY@1600 PO Last administered on 09/30/16 16: 00; Start 09/25/16 at 17:00 Sodium Biphosphate/ Sodium Phosphate (Fleets Enema (Adult)) 133 ml UNSCH PRN ME CONSTIPATION; Start 09/25/16 at 16:00 Bisacodyl (Dulcolax Supp) 10 mg DAILY PRN RECTAL CONSTIPATION; Start 09/26/16 at 15:30 Bisacodyl (Dulcolax Supp) 10 mg ONCE ONCE RECTAL Last administered on 16:10; Start 09/26/16 at 15:30; Stop 09/26/16 at 15:31; Status DC Date of Insertion: Aug 03, 2016 A/P Assessment and Plan A/P 60-year-old male with: 1. 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 Tracks with his eyes. Continue Keppra for seizure prophylaxis. PT/OT signed off as patient is unable to participate. -Need placement. Difficult. Appreciate case management assistance. 2. Chronic respiratory failure -Secondary to CVA. Status post tracheostomy. Continue pulmonary toilet and bronchodilators as needed. Continue trach care, suctioning. Levsin as needed. -Pulmonary currently following . Appreciate assistance. 3. Atrial fibrillation -Continue rate control with Cardizem and metoprolol. Echocardiogram in November 2015 shows preserved ejection fraction. Coumadin discontinued secondary to bleeding. Rate controlled. Continue aspirin and prophylactic heparin dose. 4. History of non-Hodgkin's lymphoma - Status post brain biopsy on December 13 by neurosurgery. Pathology consistent with acute infarct without evidence of lymphoma. Oncology has signed all 5. Diabetes mellitus -Hemoglobin A1c is 7. Continue Levemir. Monitor Accu-Cheks and cover with sliding scale insulin. Overall blood sugar continues well controlled. 6. Decubitus ulcer stage IV -Continue wound care, twice-daily dressing changes. Wound care recommendations. Continue pressure relief measures including turning and positioning. Patient's family has declined a diverting colostomy. Previous Wound culture growing Klebsiella. on Augmentin. Status post wide excision of sacral skin and biopsy of the cavity lining with debridement on 07/22/16. Continue scheduled [place] every 8 hours. -Continue to monitor for pain. 7. Gastric ulcer, reflux esophagitis - EGD on 07/30/16 showed gastric ulcers. Appreciate GI recommendations. Continue PPI. H&H stable as of last recheck.. 8. UTI pseudomonas aeruginosa treated with abx - Resolved. - Repeat Ucx 08/28/16 negative. 9. Constipation: -Having regular bowel movements. -on lactulose. Monitor. Discharge Planning dc planning to SNF-no funding- SSI pending. Medardo Au MD Oct 01, 2016 13:25
[2016-10-01] MEDS: SENNOSIDES SYRUP 8.8 MG/5 ML CUP PO SCH (16:01)
[2016-10-01] MEDS: PARoxetine HCL SUSP 20 MG/10 ML UDC PEG SCH (18:15)
--- NOTE | 2016-10-01 19:27 | HHI.PR ---
Subjective Remarks no change on o2 , o2 SAT 96 Objective Vital Signs Date Time Temp Pulse Resp B/P Pulse Ox O2 Delivery O2 Flow Rate FiO2 10/01/16 18:44 98 T-piece 6.00 28 10/01/16 16:21 96.1 78 20 120/71 98 10/01/16 12:13 96.7 79 20 112/71 96 10/01/16 08:00 90 10/01/16 07:30 95.7 93 20 126/73 98 10/01/16 06:00 19 10/01/16 05:15 84 10/01/16 04:00 96.7 91 18 120/60 99 10/01/16 03:20 98 T-Piece 6.00 28 10/01/16 00:00 97.8 83 20 129/85 97 09/30/16 20:29 98 T-piece 28 09/30/16 20:29 98 T-piece 28 09/30/16 20:15 98 T-Piece 6.00 28 09/30/16 20:00 96.3 81 18 100/ 12 I/O 09/30/16 09/30/16 09/30/16 10/01/16 10/01/16 10/01/16 07:00 15:00 23:00 07:00 15:00 23:00 Intake Total 1000 ml 200 ml 1200 ml Output Total 800 ml 700 ml 1000 ml 300 ml 450 ml Balance -800 ml 300 ml -800 ml -300 ml 750 ml Tube Feeding 1000 ml 1000 ml Other 200 ml 200 ml Output Urine Total 800 ml 700 ml 1000 ml 300 ml 450 ml # Bowel Movements 1 2 Procedures 01/02/16 PEG placement 01/02/16 tracheostomy 07/22/2016 Wide excision of sacral skin wound, biopsy of the cavity lining and debridement. PEG tube replacement 07/29/16 Objective Remarks GENERAL: SKIN: Warm and dry. HEAD: Atraumatic. Normocephalic. EYES: Pupils equal and round. No scleral icterus. No injection or drainage. ENT: No nasal bleeding or discharge. Mucous membranes pink and moist. NECK: Trachea midline. No JVD. TRACH. [place] CARDIOVASCULAR: Regular rate and rhythm. RESPIRATORY: No accessory muscle use. Clear to auscultation. Breath sounds equal bilaterally. GASTROINTESTINAL: Abdomen soft, non-tender, nondistended. Hepatic and splenic margins not palpable. MUSCULOSKELETAL: Extremities without clubbing, cyanosis, or edema. No obvious deformities. NEUROLOGICAL: Awake and alert. No obvious cranial nerve deficits. Motor grossly within normal limits. Five out of 5 muscle strength in the arms and legs. Normal speech. PSYCHIATRIC: Appropriate mood and affect; insight and judgment normal. Assessment and Plan Assessment and Plan impression respiratory failure CVA S/P TRACHEOSTOMY PLAN O2 NEEDED PULM. TOILET Brandon Taylor MD Oct 01, 2016 19:27
[2016-10-01] MEDS: INSULIN DETEMIR 100 UNITS/ML VIAL SQ SCH (23:31)
[2016-10-02] VITALS (11 sets, daily range): BP systolic 106–134; BP diastolic 69–78; PULSE 79–95; RESP 18–20; TEMP 96.7–98.6; O2SAT 97–99
[2016-10-02] MEDS: FREE WATER TUBE SCH ×5 (03:53→20:00)
[2016-10-02] MEDS: ACETIC ACID 0.25% SOLN 1000 ML IRR BTL IRRIGATION SCH ×3 (06:00→22:29)
[2016-10-02] MEDS: INSULIN ASPART SUPPLEMENTAL SCALE SQ SCH (06:34)
[2016-10-02] MEDS: ACETAMINOPHEN/HYDROcodone 325 MG/5 MG TAB PO SCH ×4 (07:17→22:28)
[2016-10-02] MEDS: HEPARIN SODIUM - SQ 10,000 UNITS/ML VIAL SQ SCH ×3 (07:17→22:28)
[2016-10-02] MEDS: AMOXICILLIN (TRIHYDRATE) 500 MG CAP PO SCH ×3 (07:17→22:27)
[2016-10-02] MEDS: DOCUSATE SODIUM 100 MG/10 ML UDC PO SCH ×2 (08:59→22:27)
[2016-10-02] MEDS: levETIRAcetam 500 MG/5 ML UDC TUBE SCH ×2 (08:59→22:27)
[2016-10-02] MEDS: METOPROLOL TARTRATE 50 MG TAB PO SCH ×2 (09:00→22:27)
[2016-10-02] MEDS: SODIUM CHLORIDE 0.65% NASAL SPRAY 45 ML BTL NASAL SCH ×2 (09:00→21:00)
[2016-10-02] MEDS: POTASSIUM CHLORIDE 25 MEQ EFFERVESCENT TAB TUBE SCH (09:00)
[2016-10-02] MEDS: NYSTATIN 100,000 U/GM PWD 15 GM BTL TOPICAL SCH ×2 (09:00→22:29)
[2016-10-02] MEDS: DILTIAZEM HCL 30 MG TAB PEG SCH ×4 (09:00→22:27)
[2016-10-02] MEDS: ASPIRIN 325 MG TAB TUBE SCH (09:00)
[2016-10-02] MEDS: ARTIFICIAL TEARS OPTH SOLN 15 ML BTL EACH EYE SCH ×2 (09:01→22:29)
[2016-10-02] MEDS: PANTOPRAZOLE SODIUM 40 MG VIAL IV PUSH SCH ×2 (09:02→22:28)
[2016-10-02] MEDS: KETOCONAZOLE 2% CREAM 15 GM TOPICAL SCH ×2 (09:02→22:29)
[2016-10-02] MEDS: LACTOBACILLUS ACIDOPHILUS TAB PEG SCH ×3 (09:03→18:57)
[2016-10-02] MEDS: BACITRACIN TOP OINT 15 GM TUBE TOP SCH ×2 (09:03→22:29)
[2016-10-02] MEDS: LACTULOSE SYRUP 20 GM/30 ML CUP PO SCH (09:07)
--- NOTE | 2016-10-02 12:48 | HHI.PR ---
Subjective Remarks in no acute distress. clinically no change. d/w the RN and no acute issues over night. Objective Vitals Vital Signs Date Time Temp Pulse Resp B/P Pulse Ox O2 Delivery O2 Flow Rate FiO2 10/02/16 12:23 97.5 79 20 106/73 98 10/02/16 09:55 98 T-piece 28 10/02/16 09:55 98 T-piece 28 10/02/16 08:44 97.0 95 20 134/78 98 10/02/16 06:06 98.6 94 20 132/73 97 10/02/16 04:39 98 T-Piece 6.00 10/02/16 00:44 82 10/02/16 00:40 18 10/02/16 00:00 98.3 84 18 118/69 97 10/01/16 22:00 98 T-Piece 6.00 28 10/01/16 20:00 97.1 82 18 107/67 96 10/01/16 18:44 98 T-piece 6.00 28 10/01/16 16:21 96.1 78 20 120/71 98 I/O 10/01/16 10/01/16 10/01/16 10/02/16 10/02/16 10/02/16 07:00 15:00 23:00 07:00 15:00 23:00 Intake Total 1200 ml 1000 ml Output Total 300 ml 450 ml 1200 ml 550 ml Balance -300 ml 750 ml -1200 ml 450 ml Tube Feeding 1000 ml 1000 ml Other 200 ml Output Urine Total 300 ml 450 ml 1200 ml 550 ml # Bowel Movements 2 0 0 Imaging Last Impressions Tube Change 09/09/16 1011 Signed Impressions: Service Date/Time: Friday, September 09, 2016 11:27 - CONCLUSION: Occluded jejunal port of the GJ tube. Uncomplicated gastrojejunostomy tube exchange as above. Jonel Jones Jr., MD Abdomen X-Ray 08/31/16 0000 Signed Impressions: Service Date/Time: Wednesday, August 31, 2016 16:36 - CONCLUSION: 1. No acute findings. Mild constipation. Durga Dotson MD Chest X-Ray 08/23/16 0000 Signed Impressions: Service Date/Time: Tuesday, August 23, 2016 16:06 - CONCLUSION: Minimal basilar right lung opacity likely representing atelectasis. Kwasi James MD Abdomen/Pelvis CT 04/12/16 0000 Signed Impressions: Service Date/Time: Tuesday, April 12, 2016 20:52 - CONCLUSION: 1. 6.4 cm necrotic mass or abscess in the soft tissues posteriorly just below the sacrum associated with some bony destructive change of the lower most sacrum and coccyx with inflammatory changes extending into the ischiorectal fossa and into the presacral retroperitoneum predominantly on the left side. There is associated fairly marked mural thickening of the anal verge and rectum. 2. There is gastrostomy and Arevalo catheter present. Stable abdominal aortic aneurysm. Durga Dotson MD Head Magnetic Resonance Angiography 03/05/16 0000 Signed Impressions: Service Date/Time: Saturday, March 05, 2016 09:26 - CONCLUSION: Persistent high-grade subtotal occlusive stenotic lesions in the distal right vertebral artery and proximal basilar artery with significant improvement in flow and recanalization following initial presentation of thrombosis. Stable interstitial circulation without significant stenosis. 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 There is decreasing restricted diffusion and increasing loss of volume characteristic of a subacute to chronic infarct. No evidence of acute infarct, acute hemorrhage mass or edema. Ernesto Kulkarni MD Head CT 01/16/16 0000 Signed Impressions: Service Date/Time: Saturday, January 16, 2016 10:51 - CONCLUSION: No extensive low density in the brainstem colin more prominent in the right the left extending into the right middle cerebellar peduncle consistent with brainstem infarct nonhemorrhagic acute Wellington West MD Neck Magnetic Resonance Angiography 12/22/15 1445 Signed Impressions: Service Date/Time: Tuesday, December 22, 2015 09:22 - CONCLUSION: Variant origin of the left vertebral artery from the aortic arch. No evidence of carotid stenosis. Glen Zamora MD Head/Brain Mag Res Venography 12/22/15 0000 Signed Impressions: Service Date/Time: Tuesday, December 22, 2015 09:22 - CONCLUSION: Normal MRV. Jonel Jones Jr., MD Objective Remarks GENERAL: on Trach- in no apparent distress. CARDIOVASCULAR: Regular rate and regular rhythm without murmurs, gallops, or rubs. RESPIRATORY: Clear to auscultation. Breath sounds equal bilaterally. No wheezes , rales, or rhonchi. GASTROINTESTINAL: Abdomen soft, non-tender,distended. hypoactive bowel sounds-PEG in place MUSCULOSKELETAL: Extremities without clubbing, cyanosis, or edema. NEURO: awake Procedures 01/02/16 PEG placement 01/02/16 tracheostomy 07/22/2016 Wide excision of sacral skin wound, biopsy of the cavity lining and debridement. PEG tube replacement 07/29/16 Medications and IVs Current Medications IV Flush (NS Flush) 2 ml UNSCH PRN IVF FLUSH AFTER USING IV ACCESS Last administered on 09/28/16t 21:18; Start 12/21/15 at 06:00 Ondansetron HCl (Zofran Inj) 4 mg STK-MED ONCE .ROUTE ; Start 12/21/15 at 06:22; Stop 12/21/15 at 06:23; Status DC Ondansetron HCl (Zofran Inj) 4 mg ONCE ONCE IV PUSH Last administered on at 06:43; Start 12/21/15 at 06:30; Stop 12/21/15 at 06:31; Status DC Diltiazem HCl 20 mg 20 mg ONCE ONCE IV Last administered on 12/21/15at 06:42; Start 12/21/15 at 06:30; Stop 12/21/15 at 06:31; Status DC Diltiazem HCl/ Sodium Chloride (Cardizem Inj/NS Inj) 125 ml @ 0 mls/hr TITRATE IV Last administered on 12/21/15at 06:47; Start 12/21/15 at 06:30; Stop 12/21/15 at 13:00; Status DC Acetaminophen (Tylenol) 650 mg ONCE ONCE PO ; Start 12/21/15 at 06:45; Stop 12/20 at 06:46; Status DC Lorazepam (Ativan Inj) 1 mg ONCE ONCE IV PUSH Last administered on 12/21/15at 07 :22; Start 12/21/15 at 07:15; Stop 12/21/15 at 07:16; Status DC Etomidate (Amidate Inj) 40 mg STK-MED ONCE .ROUTE Last administered on at 08:17; Start 12/21/15 at 07:37; Stop 12/21/15 at 07:38; Status DC Succinylcholine Chloride 200 mg 200 mg STK-MED ONCE .ROUTE Last administered on 12/21/15at 08:18; Start 12/21/15 at 07:37; Stop 12/21/15 at 07:38; Status DC Propofol (Diprivan 1000 Mg/100ml Inj) 100 ml @ As Directed STK-MED ONCE .ROUTE Last administered on 12/21/15at 08:19; Start 12/21/15 at 07:46; Stop 12/21/15 at 07:47; Status DC Propofol (Diprivan 1000 Mg/100ml Inj) search Sets for Drip. NOW PRN IV SEDATION Last administered on 12/22/15at 06:25; Start 12/21/15 at 08:30; Stop 12/28 at 15:43; Status DC Gadodiamide (Omniscan Pf Inj) 18 ml STK-MED ONCE IV Last administered on at 10:11; Start 12/21/15 at 10:11; Stop 12/21/15 at 10:12; Status DC Pantoprazole Sodium (Protonix Inj) 40 mg DAILY IV Last administered on at 07:39; Start 12/21/15 at 13:00; Stop 01/03/16 at 10:10; Status DC Albuterol/ Ipratropium (Duoneb Neb) 1 ampule Q6HR NEB INH Last administered on 12/25/15at 07:51; Start 12/21/15 at 13:00; Stop 12/25/15 at 13:00; Status DC Miscellaneous Information 1 [id number] Last administered on 12/21/15at 13:00; Start 12/21/15 at 13:00; Stop 01/12/16 at 11:47; Status DC Chlorhexidine Gluconate (Chlorhexidine 2% Cloth) 3 pack Taper DAILY@04 TOP Last administered on 01/11/16at 04:10; Start 12/22/15 at 04:00; Stop 01/12/16 at 11:47; Status DC Chlorhexidine Gluconate 3 pack 3 pack UNSCH PRN TOP HYGIENIC CARE; Start at 13:00; Stop 01/12/16 at 11:47; Status DC Sodium Chloride (NS 1000 ml Inj) 1,000 ml @ 75 mls/hr [id number] IV Last administered on 12/22/15at 17:00; Start 12/21/15 at 13:00; Stop 12/22/15 at 19:01; Status DC Dextrose (D50w (Vial) Inj) 25 ml UNSCH PRN IV PUSH HYPOGLYCEMIA-SEE COMMENTS; Start 12/21/15 at 13:00; Stop 04/19/16 at 17:19; Status DC Glucagon (Glucagon Inj) 1 mg UNSCH PRN OTHER HYPOGLYCEMIA-SEE COMMENTS; Start 12/21/15 at 13:00; Stop 04/19/16 at 17:19; Status DC Insulin Human Regular (NovoLIN R SUPPLEMENTAL SCALE) 1 Q6H SQ Last administered on 01/04/16at 06:31; Start 12/21/15 at 13:00; Stop 01/04/16 at 10:05 ; Status DC Levetriacetam (Keppra) 500 mg Q12HR PO Last administered on 12/27/15at 09:00; Start 12/21/15 at 13:45; Stop 12/27/15 at 09:44; Status DC Heparin Sodium (Porcine) (Heparin Inj) 5,000 units BID SQ Last administered on 12/22/15at 20:52; Start 12/21/15 at 21:00; Stop 12/23/15 at 08:32; Status DC Warfarin Sodium (Coumadin) 7.5 mg ONCE ONCE PO Last administered on 12/21/15at 21:43; Start 12/21/15 at 21:00; Stop 12/21/15 at 21:01; Status DC Warfarin Sodium (Coumadin) 5 mg DAILY@16 PO Last administered on 12/23/15at 16:00 ; Start 12/22/15 at 16:00; Stop 12/26/15 at 09:29; Status DC Patient Medication Teaching (Coumadin Booklet) 1 ONCE ONCE XX Last administered on 12/21/15at 20:15; Start 12/21/15 at 20:15; Stop 12/21/15 at 20:16; Status DC Chlorhexidine Gluconate (Peridex 0.12% Liq) 15 ml BID@08,20 MT Last administered on 01/12/16at 08:00; Start 12/22/15 at 20:00; Stop 01/12/16 at 11:47 ; Status DC Gadodiamide 20 ml 20 ml STK-MED ONCE IV Last administered on 12/22/15at 09:55; Start 12/22/15 at 09:55; Stop 12/22/15 at 09:56; Status DC Pharmacy Profile Note ml @ 0 mls/hr UNSCH OTHER ; Start 12/22/15 at 11:00; Stop 12/22/15 at 19:43; Status DC Sodium Chloride 1,000 ml @ 50 mls/hr Q20H IV Last administered on 12/24/15at 20: 02; Start 12/22/15 at 18:44; Stop 12/25/15 at 11:52; Status DC Pharmacy Profile Note (Coumadin Consult Pharmacy) 0 ml @ 0 mls/hr UNSCH OTHER ; Start 12/22/15 at 19:45; Stop 01/04/16 at 12:25; Status DC Acetaminophen 650 mg 650 mg Q6H PRN PO TEMP > 100 Last administered on at 13:24; Start 12/23/15 at 02:45; Stop 12/30/15 at 15:04; Status DC Potassium Chloride 100 ml @ 50 mls/hr Q2H PRN IV For Potassium 2.8 - 3.2 mEq/L ; Start 12/23/15 at 08:30; Stop 01/09/16 at 11:14; Status DC Potassium Chloride (KCl 20 Meq Premix Inj) 100 ml @ 50 mls/hr Q2H PRN IV For Potassium 2.8 - 3.2 mEq/L; Start 12/23/15 at 08:30; Stop 01/09/16 at 11:14; Status DC Potassium Chloride 40 meq 40 meq UNSCH PRN PO/TUBE For Potassium 3.3 - 3.5 mEq/ L; Start 12/23/15 at 08:30; Stop 01/09/16 at 11:14; Status DC Potassium Chloride 100 ml @ 25 mls/hr UNSCH PRN IV For Potassium 3.3 - 3.5 mEq /L; Start 12/23/15 at 08:30; Stop 01/09/16 at 11:14; Status DC Potassium Chloride 100 ml @ 50 mls/hr Q2H PRN IV For Potassium 3.3 - 3.5 mEq/L ; Start 12/23/15 at 08:30; Stop 01/09/16 at 11:14; Status DC Magnesium Sulfate/ Sodium Chloride (Magnesium Sulfate Inj/NS Inj) 100 ml @ 50 mls/hr UNSCH PRN IV For Magnesium 0.9 - 1.1 mg/dL; Start 12/23/15 at 08:30; Stop 01/09/16 at 11:14; Status DC Magnesium Oxide 800 mg 800 mg UNSCH PRN PO For Magnesium 1.2 - 1.6 mg/dL; Start 12/23/15 at 08:30; Stop 01/09/16 at 11:14; Status DC Magnesium Sulfate/ Sodium Chloride (Magnesium Sulfate Inj/NS Inj) 100 ml @ 50 mls/hr UNSCH PRN IV For Magnesium 1.2 - 1.6 mg/dL; Start 12/23/15 at 08:30; Stop 01/09/16 at 11:14; Status DC Potassium Phosphate 2000 mg 2,000 mg Q4H PRN PO For Phosphorus < 2.5 mg/dL; Start 12/23/15 at 08:30; Stop 01/09/16 at 11:14; Status DC Sodium Phosphate/ Sodium Chloride (Sodium Phosphate Inj/NS 250 ml Inj) 250 ml @ 42 mls/hr UNSCH PRN IV For Phosphorus < 2.5 mg/dL; Start 12/23/15 at 08:30; Stop 01/09/16 at 11:14; Status DC Potassium Chloride (KCl 40 Meq/30 ml Liq) 40 meq UNSCH PRN PO/TUBE SEE LABEL COMMENTS; Start 12/23/15 at 08:30; Stop 01/09/16 at 11:14; Status DC Potassium Phosphate 2000 mg 2,000 mg UNSCH PRN PO/TUBE SEE LABEL COMMENTS; Start 12/23/15 at 08:30; Stop 01/09/16 at 11:14; Status DC Potassium Phosphate 30 mmol/ Sodium Chloride 260 ml @ 42 mls/hr UNSCH PRN IV SEE LABEL COMMENTS; Start 12/23/15 at 08:30; Stop 01/09/16 at 11:14; Status DC Sodium Chloride 1,000 ml @ 75 mls/hr [id number] IV ; Start 12/23/15 at 08:30; Stop 12/23/15 at 08:30; Status DC Piperacillin Sod/ Tazobactam Sod 50 ml @ 100 mls/hr Q6H IV Last administered on 12/30/15at 10:02; Start 12/23/15 at 10:00; Stop 12/30/15 at 14:50; Status DC Vancomycin HCl/ Sodium Chloride (Vancomycin Inj/ NS 250 ml Inj) 250 ml @ 250 mls/hr Q12H IV Last administered on 12/29/15at 09:01; Start 12/24/15 at 08:45; Stop 12/29/15 at 15:33; Status DC Warfarin Sodium (Coumadin) 4 mg DAILY@16 PO Last administered on 12/28/15at 16:00 ; Start 12/26/15 at 16:00; Stop 01/04/16 at 12:25; Status DC Levetriacetam (Keppra Liq) 500 mg Q12HR TUBE Last administered on 10/02/16t 08 :59; Start 12/27/15 at 21:00 Docusate Sodium (Colace Liq) 100 mg Q12HR TUBE Last administered on 01/15/16at 09:01; Start 12/27/15 at 21:00; Stop 04/16/16 at 08:50; Status DC Sennosides (Senna Liq) 8.8 mg DAILY TUBE Last administered on 01/15/16at 09:01 ; Start 12/27/15 at 17:00; Stop 01/15/16 at 20:37; Status DC Bisacodyl (Dulcolax Supp) 10 mg ONCE ONCE RECTAL ; Start 12/27/15 at 16:15; Stop 12/27/15 at 16:15; Status DC Albuterol/ Ipratropium (Duoneb Neb) 1 ampule Q4HR NEB PRN NEB RESPIRATORY DISTRESS Last administered on 12/29/15at 12:17; Start 12/27/15 at 22:00; Stop at 08:16; Status DC Bisacodyl (Dulcolax Supp) 10 mg ONCE ONCE RECTAL ; Start 12/28/15 at 12:00; Stop 12/28/15 at 12:01; Status DC Sodium Chloride (Sodium Chloride) 1 gm BID TUBE Last administered on 12/29/15at 09:02; Start 12/28/15 at 21:00; Stop 12/29/15 at 15:43; Status DC Lactulose (Lactulose Liq) 30 ml DAILY TUBE Last administered on 12/29/15at 09:02 ; Start 12/28/15 at 20:30; Stop 12/29/15 at 15:43; Status DC Levofloxacin (Levaquin) 750 mg DAILY@16 TUBE ; Start 12/29/15 at 16:00; Stop 05/05 at 16:00; Status DC Sodium Chloride (Sodium Chloride) 1 gm DAILY TUBE Last administered on at 07:29; Start 12/30/15 at 09:00; Stop 12/31/15 at 14:08; Status DC Water 200 ml 200 ml Q6HR G-TUBE Last administered on 12/31/15at 04:19; Start 06/05 at 14:45; Stop 12/31/15 at 07:31; Status DC Ceftriaxone Sodium/Sodium Chloride (Rocephin Inj/NS Inj) 100 ml @ 200 mls/hr Q12H IV Last administered on 01/03/16at 02:47; Start 12/30/15 at 15:00; Stop at 10:09; Status DC Acetaminophen (Tylenol 650 Mg/ 20 ml Liq) 650 mg Q6H PRN TUBE TEMP >100.4 Last administered on 08/23/16t 12:52; Start 12/30/15 at 15:15 Lactobacillus Acidophilus (Lactinex Pkt) 1 gm BID TUBE Last administered on at 09:00; Start 12/30/15 at 21:00; Stop 02/10/16 at 14:30; Status DC Enoxaparin Sodium (Lovenox Inj) 90 mg Q12H SQ Last administered on 01/01/16at 21 :57; Start 12/31/15 at 08:00; Stop 01/03/16 at 10:33; Status DC Water (Free Water) 100 ml Q12H G-TUBE ; Start 12/31/15 at 18:00; Stop 12/31/15 at 18:00; Status DC Acetaminophen/ Hydrocodone Bitart ([place] 5-325 Mg) 1 tab Q6H PRN PO PAIN Last administered on 05/26/16at 20:46; Start 12/31/15 at 15:00; Stop 06/02/16 at 21: 44; Status DC Fentanyl Citrate (Sublimaze Inj) 25 mcg Q1H PRN IV PUSH BREAKTHROUGH PAIN; Start 12/31/15 at 15:00; Stop 03/06/16 at 10:03; Status DC Water (Free Water) 200 ml Q8H G-TUBE Last administered on 01/01/16at 17:55; Start 12/31/15 at 18:00; Stop 01/02/16 at 09:56; Status DC Sodium Chloride (Sodium Chloride) 1 gm BID TUBE Last administered on 01/03/16at 07:39; Start 12/31/15 at 21:00; Stop 01/03/16 at 09:08; Status DC Miscellaneous Information Hold Anticoagulation after midni... ONCE ONCE OTHER ; Start 01/01/16 at 10:15; Stop 01/01/16 at 10:29; Status DC Sodium Chloride (NS 1000 ml Inj) 1,000 ml @ 50 mls/hr Q20H IV Last administered on 01/02/16at 12:26; Start 01/01/16 at 18:00; Stop 01/03/16 at 10:07 ; Status DC Midazolam HCl (Versed Inj) 5 mg STK-MED ONCE .ROUTE ; Start 01/02/16 at 12:47; Stop 01/02/16 at 12:48; Status DC Vecuronium [place] (Norcuron 10 Mg Inj) 10 mg STK-MED ONCE .ROUTE ; Start at 12:47; Stop 01/02/16 at 12:48; Status DC Fentanyl Citrate (Sublimaze Inj) 250 mcg ONCE ONCE IV PUSH Last administered on 01/02/16at 15:00; Start 01/02/16 at 15:00; Stop 01/02/16 at 15:01; Status DC Midazolam HCl (Versed Inj) 10 mg ONCE ONCE IV PUSH Last administered on at 15:00; Start 01/02/16 at 15:00; Stop 01/02/16 at 15:01; Status DC Rocuronium [place] (Zemuron Inj) 100 mg BOLUS ONCE IV Last administered on at 15:00; Start 01/02/16 at 15:00; Stop 01/02/16 at 15:01; Status DC Ketamine HCl (Ketalar Inj) 500 mg STK-MED ONCE .ROUTE ; Start 01/02/16 at 14:30 ; Stop 01/02/16 at 14:31; Status DC Propofol 230 mg 230 mg STK-MED ONCE IV ; Start 01/02/16 at 16:51; Stop 01/02/16 at 16:52; Status DC Sodium Chloride (NS 1000 ml Inj) 1,000 ml @ 0 mls/hr Q0M IV ; Start 01/03/16 at 10:15; Stop 01/17/16 at 17:30; Status DC Ranitidine HCl (Zantac Liq) 150 mg Q12HR PO Last administered on 01/17/16at 07: 39; Start 01/04/16 at 09:00; Stop 01/17/16 at 15:23; Status DC Enoxaparin Sodium 90 mg 90 mg Q12HR SQ Last administered on 01/11/16at 10:01; Start 01/04/16 at 09:00; Stop 01/11/16 at 12:35; Status DC Sodium Chloride (NS 500 ml Inj) 500 ml @ 0 mls/hr BOLUS ONCE IV Last administered on 01/03/16at 22:57; Start 01/03/16 at 23:00; Stop 01/03/16 at 23:01 ; Status DC Insulin Aspart (NovoLOG SUPPLEMENTAL SCALE) 1 Q6HR SQ Last administered on at 12:00; Start 01/04/16 at 12:00; Stop 03/24/16 at 13:58; Status DC Potassium Chloride (KCl 40 Meq/30 ml Liq) 40 meq Q4H NG Last administered on at 16:21; Start 01/04/16 at 13:00; Stop 01/04/16 at 17:01; Status DC Warfarin Sodium 5 mg 5 mg DAILY@1600 PO Last administered on 01/09/16at 17:21; Start 01/04/16 at 16:00; Stop 01/10/16 at 10:06; Status DC Pharmacy Profile Note (Coumadin Consult Pharmacy) 0 ml @ 0 mls/hr UNSCH XX ; Start 01/04/16 at 12:30; Stop 04/20/16 at 12:04; Status DC Insulin Detemir (Levemir Inj) 10 units Q12HR SQ Last administered on 01/05/16at 08:00; Start 01/04/16 at 21:00; Stop 01/05/16 at 08:42; Status DC Insulin Detemir (Levemir Inj) 5 units NOW ONCE SQ Last administered on at 13:28; Start 01/04/16 at 12:45; Stop 01/04/16 at 12:46; Status DC Albuterol/ Ipratropium (Duoneb Neb) 1 ampule Q4HR NEB PRN NEB dyspnea Last administered on 04/19/16at 02:24; Start 01/07/16 at 08:15; Stop 04/25/16 at 18:54 ; Status DC Warfarin Sodium (Coumadin) 7.5 mg ONCE ONCE PO Last administered on 01/07/16at 16:40; Start 01/07/16 at 16:00; Stop 01/07/16 at 16:01; Status DC Nystatin (Mycostatin Powder) 1 applic Q12HR TOPICAL Last administered on t 09:00; Start 01/08/16 at 21:00 Ipratropium [place] (Atrovent Neb) 0.5 mg TID NEB NEB Last administered on 02/20at 13:17; Start 01/08/16 at 20:00; Stop 02/21/16 at 17:52; Status DC Warfarin Sodium (Coumadin) 5 mg DAILY@1600 PO Last administered on 01/11/16at 14 :26; Start 01/11/16 at 16:00; Stop 01/12/16 at 09:45; Status DC Warfarin Sodium (Coumadin) 6 mg ONCE PO Last administered on 01/10/16at 17:10; Start 01/10/16 at 16:00; Stop 01/10/16 at 21:00; Status DC Metoprolol Tartrate (Lopressor) 50 mg Q12HR GT Last administered on 01/11/16at 10:02; Start 01/10/16 at 11:00; Stop 01/11/16 at 12:30; Status DC Metoprolol Tartrate (Lopressor) 50 mg TID GT Last administered on 01/14/16at 08: 24; Start 01/11/16 at 13:00; Stop 01/14/16 at 08:28; Status DC Insulin Detemir (Levemir Inj) 10 units HS SQ Last administered on 01/11/16at 22: 23; Start 01/11/16 at 21:00; Stop 01/12/16 at 11:47; Status DC Warfarin Sodium (Coumadin) 4 mg DAILY@16 PO ; Start 01/12/16 at 16:00; Stop at 16:00; Status DC Insulin Detemir (Levemir Inj) 20 units HS SQ Last administered on 01/13/16at 20: 26; Start 01/12/16 at 21:00; Stop 01/14/16 at 08:28; Status DC Warfarin Sodium (Coumadin) 2 mg DAILY@16 PO Last administered on 01/13/16at 17: 05; Start 01/12/16 at 16:00; Stop 01/14/16 at 11:23; Status DC Insulin Detemir (Levemir Inj) 22 units HS SQ Last administered on 01/14/16at 21: 37; Start 01/14/16 at 21:00; Stop 01/15/16 at 10:06; Status DC Metoprolol Tartrate (Lopressor) 75 mg TID GT Last administered on 03/10/16at 17: 43; Start 01/14/16 at 09:00; Stop 03/10/16 at 21:13; Status DC Miscellaneous (Pill Splitter) 1 ea UNSCH PRN OTHER SEE LABEL COMMENTS; Start at 08:30 Warfarin Sodium (Coumadin) 4 mg DAILY@1600 PO Last administered on 01/21/16at 16: 51; Start 01/14/16 at 16:00; Stop 01/23/16 at 09:29; Status DC Patient Medication Teaching (Coumadin Booklet) 1 ONCE ONCE XX ; Start 01/14/16 at 16:00; Stop 01/14/16 at 16:01; Status DC Insulin Detemir (Levemir Inj) 24 units HS SQ Last administered on 03/04/16at 21: 09; Start 01/15/16 at 21:00; Stop 03/05/16 at 11:17; Status DC Citalopram Hydrobromide (CeleXA) 20 mg DAILY PEG Last administered on at 08:01; Start 01/16/16 at 09:00; Stop 01/16/16 at 09:41; Status DC Sennosides (Senna Liq) 8.8 mg BID TUBE Last administered on 02/20/16at 08:32; Start 01/15/16 at 21:00; Stop 02/20/16 at 16:13; Status DC Gadodiamide 18 ml 18 ml STK-MED ONCE IV ; Start 01/16/16 at 20:40; Stop at 20:41; Status DC Sodium Chloride (NS 1000 ml Inj) 1,000 ml @ 125 mls/hr Q8H IV Last administered on 01/17/16at 15:11; Start 01/17/16 at 15:00; Stop 01/17/16 at 17:31 ; Status DC Ranitidine HCl 150 mg 150 mg Q24H PO Last administered on 07/28/16t 08:54; Start 01/18/16 at 09:00; Stop 07/30/16 at 10:05; Status DC Sodium Chloride 1,000 ml @ 75 mls/hr [id number] IV Last administered on at 05:22; Start 01/17/16 at 18:00; Stop 01/18/16 at 09:28; Status DC Sodium Chloride/ Sterile Water (Sodium Chloride 23.4% Inj/Sterile Water For Inj ) 1,009.625 ml @ 60 mls/hr [id number] IV Last administered on 01/21/16at 22:46; Start 01/18/16 at 11:00; Stop 01/22/16 at 10:09; Status DC Potassium Chloride (KCl) 40 meq ONCE ONCE PO ; Start 01/18/16 at 09:30; Stop at 09:31; Status DC Potassium Chloride (KCl 40 Meq/30 ml Liq) 40 meq ONCE ONCE TUBE Last administered on 01/18/16at 11:08; Start 01/18/16 at 11:00; Stop 01/18/16 at 11:01 ; Status DC Water (Free Water) 300 ml Q4HR TUBE Last administered on 01/19/16at 08:00; Start 01/18/16 at 12:00; Stop 01/19/16 at 10:43; Status DC Water (Free Water) 400 ml Q4HR TUBE Last administered on 04/16/16at 04:00; Start 01/19/16 at 12:00; Stop 04/16/16 at 09:09; Status DC Potassium Chloride (KCl 40 Meq/30 ml Liq) 40 meq ONCE ONCE NG Last administered on 01/19/16at 11:41; Start 01/19/16 at 11:00; Stop 01/19/16 at 11:01; Status DC Potassium Chloride 60 meq 60 meq ONCE ONCE PO/TUBE Last administered on 13:30; Start 01/21/16 at 11:15; Stop 01/21/16 at 11:27; Status DC Sodium Chloride (1/2 NS 1000 ml Inj) 1,000 ml @ 30 mls/hr Q24H IV Last administered on 02/06/16at 11:26; Start 01/22/16 at 11:00; Stop 02/07/16 at 14:49 ; Status DC Warfarin Sodium (Coumadin) 3 mg DAILY@16 PO Last administered on 01/23/16 17:19 ; Start 01/23/16 at 16:00; Stop 01/24/16 at 14:05; Status DC Warfarin Sodium (Coumadin) 3 mg DAILY@16 PO Last administered on 01/25/16at 15:59 ; Start 01/25/16 at 16:00; Stop 01/26/16 at 15:04; Status DC Warfarin Sodium (Coumadin) 4 mg ONCE@1600 ONCE PO Last administered on at 16:55; Start 01/24/16 at 16:00; Stop 01/24/16 at 16:01; Status DC Warfarin Sodium (Coumadin) 3 mg DAILY@16 PO ; Start 01/27/16 at 16:00; Stop at 16:00; Status DC Warfarin Sodium (Coumadin) 4 mg ONCE@1600 ONCE PO Last administered on at 16:52; Start 01/26/16 at 16:00; Stop 01/26/16 at 16:01; Status DC Potassium Chloride (KCl 40 Meq/30 ml Liq) 80 meq ONCE ONCE PO Last administered on 01/27/16at 07:45; Start 01/27/16 at 07:45; Stop 01/27/16 at 08:10; Status DC Warfarin Sodium (Coumadin) 4 mg DAILY@16 PO Last administered on 02/02/16at 17: 22; Start 01/27/16 at 16:00; Stop 02/03/16 at 11:37; Status DC Acetic Acid (Acetic Acid 0.25% Irr Btl) 10 ml Q8HR IRRIGATION Last administered on 7/18/16at 06:00; Start 01/28/16 at 22:00; Stop 02/05/16 at 15:51 ; Status DC Warfarin Sodium 3 mg 3 mg DAILY@1600 PO Last administered on 02/11/16at 17:34; Start 02/03/16 at 16:00; Stop 02/12/16 at 12:45; Status DC Ceftriaxone Sodium/Sodium Chloride (Rocephin Inj/NS Inj) 100 ml @ 200 mls/hr Q24H IV Last administered on 02/10/16at 05:23; Start 02/05/16 at 06:30; Stop at 14:32; Status DC Acetic Acid (Acetic Acid 0.25% Irr Btl) 10 ml Q8HR IRRIGATION ; Start 02/05/16 at 16:00; Status Cancel Acetic Acid (Acetic Acid 0.25% Irr Btl) 10 ml Q8HR IRRIGATION Last administered on 10/02/16t 06:00; Start 02/05/16 at 16:00 Lactobacillus Acidophilus (Lactinex) 1 tab Q12HR PO Last administered on at 08:25; Start 02/10/16 at 21:00; Stop 02/12/16 at 16:05; Status DC Warfarin Sodium (Coumadin) 4 mg DAILY@1600 PO Last administered on 02/14/16at 15 :56; Start 02/12/16 at 16:00; Stop 02/15/16 at 10:17; Status DC Paroxetine HCl (Paxil Liq) 20 mg DAILY PEG Last administered on 02/25/16at 07:33 ; Start 02/16/16 at 09:00; Stop 02/25/16 at 10:36; Status DC Warfarin Sodium (Coumadin) 3 mg DAILY@1600 PO Last administered on 02/19/16 16: 42; Start 02/15/16 at 16:00; Stop 02/20/16 at 08:50; Status DC Warfarin Sodium (Coumadin) 4 mg DAILY@16 PO Last administered on 02/21/16at 15:54 ; Start 02/20/16 at 16:00; Stop 02/22/16 at 08:46; Status DC Sennosides (Senna Liq) 8.8 mg DAILY TUBE Last administered on 05/26/16at 08:14 ; Start 02/21/16 at 09:00; Stop 05/27/16 at 11:51; Status DC Albuterol Sulfate (Albuterol Neb) 2.5 mg QID NEB INH Last administered on at 19:51; Start 02/21/16 at 20:00; Stop 02/25/16 at 20:00; Status DC Acetylcysteine (Mucomyst 10% Neb) 1 ml QID NEB NEB Last administered on at 16:32; Start 02/21/16 at 20:00; Stop 02/23/16 at 16:01; Status DC Warfarin Sodium (Coumadin) 3 mg DAILY@16 PO Last administered on 02/22/16at 15:59 ; Start 02/22/16 at 16:00; Stop 02/23/16 at 08:56; Status DC Warfarin Sodium (Coumadin) 3 mg DAILY@16 PO Last administered on 02/28/16at 16: 17; Start 02/24/16 at 16:00; Stop 02/29/16 at 10:04; Status DC Warfarin Sodium (Coumadin) 2 mg ONCE PO Last administered on 02/23/16at 16:22; Start 02/23/16 at 16:00; Stop 02/23/16 at 21:00; Status DC Paroxetine HCl (Paxil Liq) 20 mg DAILY@1900 PEG Last administered on 03/08/16at 18:11; Start 02/26/16 at 19:00; Stop 03/09/16 at 11:31; Status DC Warfarin Sodium (Coumadin) 3 mg DAILY@16 PO Last administered on 03/06/16at 16: 22; Start 03/01/16 at 16:00; Stop 03/09/16 at 10:30; Status DC Warfarin Sodium (Coumadin) 1 mg ONCE PO Last administered on 02/29/16at 17:28; Start 02/29/16 at 16:00; Stop 02/29/16 at 21:00; Status DC Insulin Detemir (Levemir Inj) 27 units HS SQ Last administered on 03/05/16at 20: 25; Start 03/05/16 at 21:00; Stop 03/06/16 at 10:03; Status DC Patient Medication Teaching (Coumadin Booklet) 1 ONCE ONCE XX Last administered on 03/05/16at 16:00; Start 03/05/16 at 16:00; Stop 03/05/16 at 16:01 ; Status DC Insulin Detemir (Levemir Inj) 30 units HS SQ Last administered on 03/21/16at 22: 32; Start 03/06/16 at 21:00; Stop 03/22/16 at 14:48; Status DC Trimethoprim/ Sulfamethoxazole (Bactrim 800-160 Mg/20 ml Liq) 20 ml Q12HR PO Last administered on 03/14/16at 08:01; Start 03/07/16 at 11:15; Stop 03/14/16 at 11:14; Status DC Lorazepam (Ativan Inj) 0.5 mg Q4H PRN IV PUSH seizures or agitation; Start at 23:00 Metronidazole (Flagyl) 500 mg Q8H PO Last administered on 03/14/16at 15:51; Start 03/08/16 at 17:00; Stop 03/14/16 at 23:00; Status DC Warfarin Sodium (Coumadin) 2 mg DAILY@16 PO Last administered on 03/09/16at 17: 20; Start 03/09/16 at 16:00; Stop 03/10/16 at 10:33; Status DC Paroxetine HCl (Paxil) 20 mg DAILY@1900 PEG Last administered on 03/11/16at 17: 55; Start 03/09/16 at 19:00; Stop 03/12/16 at 08:31; Status DC Warfarin Sodium 3 mg 3 mg DAILY@16 PO Last administered on 04/12/16at 15:28; Start 03/10/16 at 16:00; Stop 04/12/16 at 16:39; Status DC Pharmacy Profile Note 0 ml @ 0 mls/hr UNSCH OTHER ; Start 03/10/16 at 14:15; Stop 03/18/16 at 11:33; Status DC Vancomycin HCl/ Sodium Chloride (Vancomycin Inj/ NS 500 ml Inj) 530 ml @ 265 mls/hr Q12H IV Last administered on 03/17/16at 16:26; Start 03/10/16 at 16:00; Stop 03/17/16 at 23:00; Status DC Miscellaneous Information SPECIFIC LAB TO BE ... ONCE ONCE XX Last administered on 03/12/16at 04:45; Start 03/12/16 at 03:45; Stop 03/12/16 at 03:46 ; Status DC Metoprolol Tartrate (Lopressor) 75 mg Q8HR PO Last administered on 04/02/16at 13 :13; Start 03/10/16 at 22:00; Stop 04/02/16 at 17:31; Status DC Paroxetine HCl (Paxil Liq) 20 mg DAILY@1900 PEG Last administered on 10/01/16 18:15; Start 03/12/16 at 19:00 Warfarin Sodium (Coumadin) 1 mg ONCE PO Last administered on 03/21/16at 16:24; Start 03/21/16 at 16:00; Stop 03/21/16 at 21:00; Status DC Warfarin Sodium (Coumadin) 1 mg ONCE PO Last administered on 03/22/16at 17:46; Start 03/22/16 at 16:00; Stop 03/22/16 at 21:00; Status DC Insulin Detemir (Levemir Inj) 32 units HS SQ Last administered on 03/22/16at 20: 18; Start 03/22/16 at 21:00; Stop 03/23/16 at 13:35; Status DC Diltiazem HCl (Cardizem Cd) 120 mg DAILY PO Last administered on 04/14/16at 07: 43; Start 03/22/16 at 16:00; Stop 04/14/16 at 14:39; Status DC Hyoscyamine Sulfate (Levsin Liq) 0.125 mg Q4H PRN PEG INCREASED SECRETIONS Last administered on 04/10/16at 08:05; Start 03/22/16 at 15:15; Stop 04/11/16 at 10:24; Status DC Warfarin Sodium (Coumadin) 2 mg ONCE ONCE PO Last administered on 03/23/16 17: 26; Start 03/23/16 at 16:00; Stop 03/23/16 at 16:01; Status DC Insulin Detemir (Levemir Inj) 34 units HS SQ Last administered on 03/23/16at 20: 01; Start 03/23/16 at 21:00; Stop 03/24/16 at 13:53; Status DC Insulin Detemir (Levemir Inj) 35 units HS SQ Last administered on 10/01/16 23: 31; Start 03/24/16 at 21:00 Insulin Aspart (NovoLOG SUPPLEMENTAL SCALE) 1 ACHS SLIDING SCALE SQ Last administered on 04/16/16at 22:27; Start 03/24/16 at 16:00; Stop 04/19/16 at 17:19 ; Status DC Warfarin Sodium (Coumadin) 1 mg ONCE ONCE PO Last administered on 03/30/16at 16 :59; Start 03/30/16 at 16:00; Stop 03/30/16 at 16:01; Status DC Potassium Chloride (KCl 40 Meq/30 ml Liq) 40 meq ONCE ONCE NG Last administered on 03/31/16at 21:28; Start 03/31/16 at 18:30; Stop 03/31/16 at 18:31 ; Status DC Potassium Bicarb/ Potassium Chloride (K-Lyte Cl Eff) 25 meq ONCE ONCE PEG Last administered on 04/02/16at 12:01; Start 04/02/16 at 13:00; Stop 04/02/16 at 13:01; Status DC Metoprolol Tartrate (Lopressor) 75 mg BID PO Last administered on 05/28/16at 21: 03; Start 04/02/16 at 21:00; Stop 05/29/16 at 11:21; Status DC Potassium Bicarb/ Potassium Chloride (K-Lyte Cl Eff) 25 meq ONCE ONCE PEG Last administered on 04/04/16at 14:40; Start 04/04/16 at 12:30; Stop 04/04/16 at 12:31; Status DC Linezolid (Zyvox) 600 mg Q12HR PO Last administered on 04/16/16at 09:11; Start 04/05/16 at 15:00; Stop 04/16/16 at 12:00; Status DC Artificial Tears (Lacrilube Opht Oint) 1 applic Q12HR EACH EYE Last administered on 09/04/16 21:00; Start 04/10/16 at 11:00; Stop 09/05/16 at 14:38 ; Status DC Hyoscyamine Sulfate (Levsin) 0.25 mg Q4H PRN G-TUBE INCREASED SECRETIONS Last administered on 08/31/16 05:02; Start 04/11/16 at 10:30 Diatrizoate Meglum/ Diatrizoate Sod (Md Gastroview Liq) 18 ml ONCE ONCE PO Last administered on 04/12/16at 16:45; Start 04/12/16 at 16:15; Stop 04/12/16 at 16:16; Status DC Warfarin Sodium (Coumadin) 3 mg DAILY@16 PO ; Start 04/13/16 at 16:00; Stop 05/27/16 at 11:51; Status DC Iohexol (Omnipaque 350 Inj) 98 ml STK-MED ONCE IV Last administered on at 21:01; Start 04/12/16 at 21:01; Stop 04/12/16 at 21:02; Status DC Diltiazem HCl (Cardizem Cd) 180 mg DAILY PO ; Start 04/15/16 at 09:00; Stop at 08:50; Status DC Ondansetron HCl (Zofran Inj) 4 mg Q6HR PRN IV PUSH nausea/vomiting Last administered on 08/10/16t 10:16; Start 04/14/16 at 19:45 Diltiazem HCl 60 mg 60 mg QID PO Last administered on 04/25/16at 17:26; Start at 13:00; Stop 04/25/16 at 19:06; Status DC Sodium Chloride 500 ml @ 500 mls/hr BOLUS ONCE IV Last administered on at 09:15; Start 04/15/16 at 09:15; Stop 04/15/16 at 10:14; Status DC Potassium Chloride/Dextrose/ Sodium Chloride (KCl Inj/D5W-NS 1000 ml Inj) 1,005 ml @ 100 mls/hr Q10H3M IV Last administered on 04/15/16at 21:03; Start at 11:00; Stop 04/16/16 at 09:09; Status DC Enoxaparin Sodium (Lovenox Inj) 90 mg Q12H SQ Last administered on 04/16/16at 21 :12; Start 04/16/16 at 09:00; Stop 04/17/16 at 10:37; Status DC Water 200 ml 200 ml Q4HR TUBE Last administered on 10/02/16 12:00; Start 04/16 at 12:00 Sodium Chloride 1,000 ml @ 84 mls/hr [id number] IV Last administered on at 08:38; Start 04/16/16 at 10:00; Stop 04/20/16 at 12:04; Status DC Ceftriaxone Sodium/Sodium Chloride (Rocephin Inj/NS Inj) 100 ml @ 200 mls/hr Q24H IV Last administered on 05/02/16at 13:19; Start 04/16/16 at 12:00; Stop 05/03/16 at 12:06; Status DC Acetaminophen/ Hydrocodone Bitart ([place] 5-325 Mg) 1 tab Q6HR PEG Last administered on 09/17/16t 06:42; Start 04/18/16 at 18:00; Stop 09/17/16 at 09:17 ; Status DC Lactulose (Lactulose Liq) 30 ml NOW ONCE PEG Last administered on 04/19/16at 17 :21; Start 04/19/16 at 17:30; Stop 04/19/16 at 17:31; Status DC Lactulose (Lactulose Liq) 30 ml DAILY PEG Last administered on 05/26/16at 08:14 ; Start 04/20/16 at 09:00; Stop 05/27/16 at 11:39; Status DC Potassium Bicarb/ Potassium Chloride (K-Lyte Cl Eff) 50 meq ONCE ONCE PO Last administered on 04/20/16at 05:52; Start 04/20/16 at 05:45; Stop 04/20/16 at 05:46; Status DC Furosemide (Lasix Inj) 20 mg ONCE ONCE IV PUSH Last administered on 04/20/16at 17:35; Start 04/20/16 at 12:00; Stop 04/20/16 at 12:06; Status DC Insulin Aspart (NovoLOG SUPPLEMENTAL SCALE) 1 ACHS SLIDING SCALE SQ Last administered on 06/02/16at 12:10; Start 04/20/16 at 16:00; Stop 06/02/16 at 21: 44; Status DC Dextrose (D50w (Vial) Inj) 25 ml UNSCH PRN IV HYPOGLYCEMIA-SEE COMMENTS; Start 04/20/16 at 12:00 Glucagon (Glucagon Inj) 1 mg UNSCH PRN IM/SQ HYPOGLYCEMIA-SEE COMMENTS; Start 04/20/16 at 12:00 Lactobacillus Acidophilus (Lactinex) 1 tab Q12HR PEG Last administered on 06/06at 21:34; Start 04/22/16 at 09:00; Stop 06/07/16 at 09:32; Status DC Furosemide (Lasix Inj) 20 mg Q12H IV PUSH Last administered on 04/24/16at 08:52 ; Start 04/22/16 at 09:00; Stop 04/24/16 at 09:25; Status DC Potassium Bicarb/ Potassium Chloride (K-Lyte Cl Eff) 25 meq Q12HR TUBE Last administered on 05/27/16at 08:17; Start 04/22/16 at 09:00; Stop 05/27/16 at 11:51 ; Status DC Albumin Human (Albumin 25% Inj) 12.5 gm Q12H IV Last administered on 04/24/16at 08:46; Start 04/22/16 at 09:00; Stop 04/24/16 at 09:25; Status DC Furosemide (Lasix Inj) 20 mg DAILY IV PUSH Last administered on 05/08/16at 09: 01; Start 04/25/16 at 09:00; Stop 05/08/16 at 11:06; Status DC Albumin Human (Albumin 25% Inj) 12.5 gm DAILY IV Last administered on at 09:02; Start 04/25/16 at 10:00; Stop 05/08/16 at 11:06; Status DC Furosemide (Lasix Inj) 40 mg ONCE ONCE IV PUSH Last administered on 04/25/16at 18:15; Start 04/25/16 at 18:15; Stop 04/25/16 at 18:16; Status DC Albuterol/ Ipratropium (Duoneb Neb) 1 ampule Q6HR NEB NEB Last administered on 04/27/16at 15:52; Start 04/25/16 at 18:30; Stop 04/27/16 at 19:45; Status DC Ipratropium [place] (Atrovent Neb) 0.5 mg Q6HR NEB NEB Last administered on at 16:51; Start 04/25/16 at 22:00; Stop 04/27/16 at 16:44; Status DC Levalbuterol HCl (Xopenex Neb) 0.31 mg Q4HR NEB NEB Last administered on at 23:48; Start 04/25/16 at 20:00; Stop 04/27/16 at 16:43; Status DC Levalbuterol HCl (Xopenex Neb) 0.31 mg Q2HR NEB PRN NEB SHORTNESS OF BREATH; Start 04/25/16 at 18:45; Stop 04/28/16 at 10:50; Status DC Diltiazem HCl (Cardizem) 90 mg QID PEG Last administered on 07/17/16at 09:27; Start 04/25/16 at 21:00; Stop 07/17/16 at 17:52; Status DC Diltiazem HCl (Cardizem) 30 mg NOW ONCE PEG Last administered on 04/25/16at 21: 36; Start 04/25/16 at 19:15; Stop 04/25/16 at 19:16; Status DC Levalbuterol HCl (Xopenex Neb) 0.31 mg Q8HR NEB NEB ; Start 04/28/16 at 00:00; Stop 04/28/16 at 10:50; Status DC Levalbuterol HCl (Xopenex Neb) 0.63 mg Q4HR NEB PRN NEB SHORTNESS OF BREATH Last administered on 05/04/16at 15:26; Start 04/28/16 at 11:00; Stop 05/04/16 at 00:51; Status DC Levalbuterol HCl (Xopenex Neb) 0.63 mg Q8HR NEB NEB Last administered on 05/04at 00:07; Start 04/28/16 at 16:00; Stop 05/04/16 at 00:50; Status DC Polyethylene Glycol/ Electrolytes 4000 ml 4,000 ml ONCE ONCE PO Last administered on 05/05/16at 08:10; Start 05/05/16 at 08:45; Stop 05/05/16 at 08 :46; Status DC Cefazolin Sodium/ Dextrose 50 ml @ 100 mls/hr ONCE ONCE IV ; Start 05/06/16 at 14:00; Stop 05/06/16 at 14:29; Status DC Metronidazole 100 ml @ 100 mls/hr ONCE ONCE IV Last administered on at 14:00; Start 05/06/16 at 14:00; Stop 05/06/16 at 14:59; Status DC Ceftriaxone Sodium/Sodium Chloride (Rocephin Inj/NS Inj) 100 ml @ 200 mls/hr Q24H IV Last administered on 06/09/16at 12:36; Start 05/03/16 at 12:00; Stop 06/10/16 at 12:48; Status DC Levalbuterol HCl (Xopenex Neb) 0.63 mg Q8HR NEB NEB Last administered on 05/05at 08:00; Start 05/04/16 at 00:49; Stop 05/05/16 at 08:07; Status DC Levalbuterol HCl (Xopenex Neb) 0.63 mg Q4HR NEB PRN NEB SHORTNESS OF BREATH Last administered on 08/02/16 13:48; Start 05/05/16 at 12:00 Levalbuterol HCl (Xopenex Neb) 0.63 mg Q8HR NEB NEB Last administered on 05/08at 23:56; Start 05/05/16 at 08:15; Stop 05/09/16 at 08:15; Status DC Potassium Bicarb/ Potassium Chloride (K-Lyte Cl Eff) 25 meq DAILY TUBE Last administered on 10/02/16 09:00; Start 05/28/16 at 09:00 Aspirin (Aspirin) 325 mg DAILY TUBE Last administered on 10/02/16 09:00; Start 05/27/16 at 11:40 Docusate Sodium (Colace Liq) 100 mg DAILY PRN PO constipation Last administered on 08/16/16 21:09; Start 05/27/16 at 11:45; Stop 08/31/16 at 09:00 ; Status DC Metoprolol Tartrate (Lopressor) 50 mg BID PO Last administered on 08/23/16 09: 03; Start 05/29/16 at 21:00; Stop 08/23/16 at 15:33; Status DC Acetaminophen/ Hydrocodone Bitart ([place] 5-325 Mg) 1 tab Q6H PRN TUBE BREAKTHROUGH PAIN Last administered on 08/02/16 15:11; Start 06/03/16 at 03:00 ; Stop 09/17/16 at 14:33; Status DC Insulin Aspart (NovoLOG SUPPLEMENTAL SCALE) 1 ACHS SLIDING SCALE SQ Last administered on 06/06/16at 21:35; Start 06/03/16 at 07:00; Stop 06/07/16 at 12 :24; Status DC Lactobacillus Acidophilus (Lactinex) 1 tab TID PEG Last administered on 12:27; Start 06/07/16 at 13:00 Insulin Aspart 1 1 AC BREAKFAST SQ Last administered on 09/29/16 05:06; Start 06/08/16 at 07:00 Ceftriaxone Sodium/Sodium Chloride (Rocephin Inj/NS Inj) 100 ml @ 200 mls/hr Q24H IV Last administered on 07/28/16 12:19; Start 06/10/16 at 12:00; Stop 07/29/16 at 13:30; Status DC Heparin Sodium (Porcine) (Heparin Inj) 5,000 units Q12HR SQ Last administered on 06/11/16at 00:58; Start 06/10/16 at 14:15; Stop 06/11/16 at 06:21; Status DC Heparin Sodium (Porcine) (Heparin Inj) 5,000 units Q8HR SQ Last administered on 10/02/16 07:17; Start 06/11/16 at 14:00 Diltiazem HCl (Cardizem) 30 mg QID PEG Last administered on 08/16/16 08:31; Start 07/17/16 at 18:00; Stop 08/16/16 at 12:06; Status DC Bacitracin 1 applic 1 applic BID TOP Last administered on 10/02/16 09:03; Start 07/20/16 at 10:00 Lactated Ringer's 1,000 ml @ 30 mls/hr Q24H IV ; Start 07/21/16 at 17:45; Stop 08/14/16 at 12:08; Status DC Sodium Chloride (NS 500 ml Inj) 500 ml @ 30 mls/hr [id number] IV ; Start 07/21/16 at 17:45; Stop 07/22/16 at 17:44; Status DC Insulin Human Regular (NovoLIN R INJ) See Protocol Table ... UNSCH X1 PRN SQ SEE PROTOCOL; Start 07/21/16 at 17:45; Stop 07/22/16 at 17:44; Status DC Metoprolol Tartrate (Lopressor) 25 mg UNSCH X1 PRN PO SEE LABEL COMMENTS; Start 07/21/16 at 17:45; Stop 07/22/16 at 17:44; Status DC Lidocaine/ Epinephrine (Xylocaine-Epi 1%-1:100,000 Inj) 40 ml STK-MED ONCE .ROUTE Last administered on 07/22/16 10:56; Start 07/22/16 at 10:04; Stop at 10:05; Status DC Ketamine HCl (Ketalar Inj) 500 mg STK-MED ONCE .ROUTE ; Start 07/22/16 at 10:50; Stop 07/22/16 at 10:51; Status DC Propofol 600 mg 600 mg STK-MED ONCE IV ; Start 07/22/16 at 12:00; Stop 07/23/16 at 14:36; Status DC Dextrose 1,000 ml @ 40 mls/hr Q24H ONCE IV Last administered on 07/28/16 14:33 ; Start 07/28/16 at 14:00; Stop 07/29/16 at 13:59; Status DC Ampicillin Sodium/ Sulbactam Sodium/ Sodium Chloride (Unasyn Inj/NS Inj) 100 ml @ 200 mls/hr Q6H IV Last administered on 08/01/16 12:30; Start 07/29/16 at 14: 00; Stop 08/01/16 at 14:13; Status DC Ondansetron HCl 4 mg 4 mg ONCE ONCE IV PUSH Last administered on 07/30/16 02: 46; Start 07/30/16 at 00:30; Stop 07/30/16 at 00:33; Status DC Lactated Ringer's 1,000 ml @ 30 mls/hr Q24H IV ; Start 07/30/16 at 06:00; Stop 08/14/16 at 12:09; Status DC Sodium Chloride (NS 500 ml Inj) 500 ml @ 30 mls/hr [id number] IV ; Start 07/30/16 at 06:00; Stop 07/31/16 at 05:59; Status DC Pantoprazole Sodium (Protonix Inj) 40 mg Q12H IV PUSH Last administered on 10/02 09:02; Start 07/30/16 at 10:15 Propofol 200 mg 200 mg STK-MED ONCE IV ; Start 07/30/16 at 09:41; Stop 07/30/16 at 10:19; Status DC Piperacillin Sod/ Tazobactam Sod (Zosyn 4.5 Gm Premix) 100 ml @ 200 mls/hr Q6H IV Last administered on 08/07/16 09:37; Start 08/01/16 at 16:00; Stop at 16:10; Status DC Linezolid (Zyvox) 600 mg Q12HR PO Last administered on 08/22/16 09:10; Start at 21:00; Stop 08/22/16 at 15:55; Status DC Sodium Chloride (Labette [place]) 1 spray BID NASAL Last administered on 09:00; Start 08/01/16 at 21:00 Metronidazole 500 mg 500 mg Q8H PO Last administered on 08/08/16 08:28; Start 08/07/16 at 16:00; Stop 08/08/16 at 16:10; Status DC Sodium Chloride (NS 1000 ml Inj) 1,000 ml @ 42 mls/hr [id number] IV Last administered on 08/14/16 12:44; Start 08/14/16 at 12:00; Stop 08/15/16 at 10:56 ; Status DC Fentanyl Citrate (fentaNYL INJ) 250 mcg STK-MED ONCE .ROUTE Last administered on 08/14/16 15:36; Start 08/14/16 at 15:36; Stop 08/14/16 at 15:37; Status DC Iohexol (Omnipaque 350 Inj) 30 ml STK-MED ONCE G-TUBE Last administered on 08/14 15:45; Start 08/14/16 at 15:52; Stop 08/14/16 at 15:53; Status DC Diltiazem HCl (Cardizem) 30 mg QID PEG Last administered on 10/02/16 09:00; Start 08/16/16 at 13:00 Polyethylene Glycol (Miralax) 17 gm ONCE ONCE PEG Last administered on 11:32; Start 08/17/16 at 12:00; Stop 08/17/16 at 12:01; Status DC Amoxicillin 500 mg 500 mg Q8HR PO Last administered on 10/02/16 07:17; Start 08/22/16 at 22:00 Cefepime HCl/ Sodium Chloride (Maxipime Inj/NS Inj) 100 ml @ 200 mls/hr Q8H IV Last administered on 09/03/16 10:46; Start 08/23/16 at 16:00; Stop 09/03/16 at 15:02; Status DC Metoprolol Tartrate (Lopressor) 75 mg BID PO Last administered on 09/13/16 08: 42; Start 08/23/16 at 21:00; Stop 09/13/16 at 13:09; Status DC Docusate Sodium (Colace Liq) 100 mg BID PO Last administered on 10/02/16 08:59 ; Start 08/30/16 at 21:00 Sennosides (Senokot) 17.2 mg DAILY PO Last administered on 09/25/16 08:36; Start 08/30/16 at 14:00; Stop 09/25/16 at 16:09; Status DC Lactulose (Lactulose Liq) 30 ml DAILY PO Last administered on 10/02/16 09:07; Start 09/02/16 at 15:30 Artificial Tears (Tears Naturale Opth Soln) 1 drop BID EACH EYE Last administered on 10/02/16 09:01; Start 09/05/16 at 21:00 Midazolam HCl (Versed Inj) 2 mg STK-MED ONCE .ROUTE Last administered on 11:37; Start 09/09/16 at 11:37; Stop 09/09/16 at 11:38; Status DC Fentanyl Citrate (fentaNYL INJ) 100 mcg STK-MED ONCE .ROUTE Last administered on 09/09/16 11:38; Start 09/09/16 at 11:38; Stop 09/09/16 at 11:39; Status DC Iohexol (Omnipaque 350 Inj) 20 ml STK-MED ONCE G-TUBE Last administered on 09/09 11:50; Start 09/09/16 at 11:50; Stop 09/09/16 at 12:15; Status DC Metoprolol Tartrate (Lopressor) 50 mg BID PO Last administered on 10/02/16 09: 00; Start 09/13/16 at 21:00 Acetaminophen/ Hydrocodone Bitart ([place] 5-325 Mg) 1 tab Q6H PEG ; Start at 11:00; Stop 09/17/16 at 14:25; Status DC Acetaminophen/ Hydrocodone Bitart ([place] 5-325 Mg) 1 tab DAILY@1600 PO ; Start 09/17/16 at 16:00; Stop 09/17/16 at 16:00; Status DC Morphine Sulfate (Morphine Inj) 1 mg Q24H PRN IV PUSH dressing change 30 min before Last administered on 09/24/16 08:34; Start 09/17/16 at 14:30 Acetaminophen/ Hydrocodone Bitart ([place] 5-325 Mg) 1 tab DAILY@0000 PO Last administered on 09/17/16 23:43; Start 09/18/16 at 00:00; Stop 09/20/16 at 12:46; Status DC Acetaminophen/ Hydrocodone Bitart ([place] 5-325 Mg) 1 tab Q8H PO Last administered on 10/02/16 07:17; Start 09/20/16 at 13:00 Ketoconazole (Nizoral 2% Cream) 1 applic Q12HR TOPICAL Last administered on 09:02; Start 09/24/16 at 21:00 Sennosides (Senna Liq) 8.8 mg DAILY@1600 PO Last administered on 10/01/16 16: 01; Start 09/25/16 at 17:00 Sodium Biphosphate/ Sodium Phosphate (Fleets Enema (Adult)) 133 ml UNSCH PRN NE CONSTIPATION; Start 09/25/16 at 16:00 Bisacodyl (Dulcolax Supp) 10 mg DAILY PRN RECTAL CONSTIPATION; Start 09/26/16 at 15:30 Bisacodyl (Dulcolax Supp) 10 mg ONCE ONCE RECTAL Last administered on 16:10; Start 09/26/16 at 15:30; Stop 09/26/16 at 15:31; Status DC Date of Insertion: Aug 03, 2016 A/P Assessment and Plan A/P 60-year-old male with: 1. 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 Tracks with his eyes. Continue Keppra for seizure prophylaxis. PT/OT signed off as patient is unable to participate. -Need placement. Difficult. Appreciate case management assistance. 2. Chronic respiratory failure -Secondary to CVA. Status post tracheostomy. Continue pulmonary toilet and bronchodilators as needed. Continue trach care, suctioning. Levsin as needed. -Pulmonary currently following . Appreciate assistance. 3. Atrial fibrillation -Continue rate control with Cardizem and metoprolol. Echocardiogram in November 2015 shows preserved ejection fraction. Coumadin discontinued secondary to bleeding. Rate controlled. Continue aspirin and prophylactic heparin dose. 4. History of non-Hodgkin's lymphoma - Status post brain biopsy on December 13 by neurosurgery. Pathology consistent with acute infarct without evidence of lymphoma. Oncology has signed all 5. Diabetes mellitus -Hemoglobin A1c is 7. Continue Levemir. Monitor Accu-Cheks and cover with sliding scale insulin. Overall blood sugar continues well controlled. 6. Decubitus ulcer stage IV -Continue wound care, twice-daily dressing changes. Wound care recommendations. Continue pressure relief measures including turning and positioning. Patient's family has declined a diverting colostomy. Previous Wound culture growing Klebsiella. on Augmentin. Status post wide excision of sacral skin and biopsy of the cavity lining with debridement on 07/22/16. continue with pain control. 7. Gastric ulcer, reflux esophagitis - EGD on 07/30/16 showed gastric ulcers. Appreciate GI recommendations. Continue PPI. H&H stable. 8. UTI pseudomonas aeruginosa treated with abx - Resolved. - Repeat Ucx 08/28/16 negative. 9. Constipation: -Having regular bowel movements. -on lactulose. Monitor. Discharge Planning dc planning to SNF-no funding- SSI pending. Medardo Au MD Oct 02, 2016 12:48
[2016-10-02] MEDS: SENNOSIDES SYRUP 8.8 MG/5 ML CUP PO SCH (16:48)
[2016-10-02] MEDS: PARoxetine HCL SUSP 20 MG/10 ML UDC PEG SCH (18:57)
[2016-10-02] MEDS: INSULIN DETEMIR 100 UNITS/ML VIAL SQ SCH (22:28)
[2016-10-03] VITALS (8 sets, daily range): BP systolic 101–133; BP diastolic 61–80; PULSE 75–85; RESP 16–20; TEMP 95.8–97.7; O2SAT 75–100
[2016-10-03] MEDS: FREE WATER TUBE SCH ×6 (04:00→20:00)
[2016-10-03] MEDS: ACETAMINOPHEN/HYDROcodone 325 MG/5 MG TAB PO SCH ×3 (04:54→21:00)
[2016-10-03] MEDS: HEPARIN SODIUM - SQ 10,000 UNITS/ML VIAL SQ SCH ×3 (05:51→21:43)
[2016-10-03] MEDS: AMOXICILLIN (TRIHYDRATE) 500 MG CAP PO SCH ×3 (05:51→21:42)
[2016-10-03] MEDS: ACETIC ACID 0.25% SOLN 1000 ML IRR BTL IRRIGATION SCH ×3 (05:52→21:40)
[2016-10-03] MEDS: INSULIN ASPART SUPPLEMENTAL SCALE SQ SCH (06:45)
--- NOTE | 2016-10-03 08:06 | HHI.PR ---
Subjective Remarks This is a pleasant 60 y/o male with Paroxysmal Atrial Fibrillation, Hypertension , Stage IIIa Non Hodgkin Lymphoma, status post Chemotherapy with Rituxan, [facility] 2014, who was brought in to ER with AMS CT scan of the brain showed no focal or acute intracranial Hemorrhage, he had recent Brain Biopsy he became obtunded in ER and was Intubated, Transferred initially to ICU, in no acute distress. clinically no change. Seem in the presence of nurse Shmuel France, his Mother present. Objective Vital Signs Date Time Temp Pulse Resp B/P Pulse Ox O2 Delivery O2 Flow Rate FiO2 10/03/16 07:51 95.8 75 20 116/68 75 10/03/16 06:41 96.4 77 16 101/67 97 10/03/16 00:01 99 10/03/16 00:00 97.0 78 18 104/61 77 10/02/16 23:26 84 10/02/16 21:14 100 T-Piece 28 10/02/16 20:00 97.1 87 18 115/73 97 10/02/16 18:28 99 T-piece 6.00 28 10/02/16 16:33 96.7 82 20 117/73 99 10/02/16 14:00 90 10/02/16 12:23 97.5 79 20 106/73 98 10/02/16 09:55 98 T-piece 28 10/02/16 09:55 98 T-piece 28 10/02/16 08:57 97 T-Piece 6.00 28 10/02/16 08:44 97.0 95 20 134/78 98 I/O 10/02/16 10/02/16 10/02/16 10/03/16 10/03/16 10/03/16 07:00 15:00 23:00 07:00 15:00 23:00 Intake Total 1000 ml Output Total 550 ml 700 ml 1000 ml 400 ml Balance 450 ml -700 ml -1000 ml -400 ml Tube Feeding 1000 ml Output Urine Total 550 ml 700 ml 1000 ml 400 ml # Bowel Movements 0 1 1 2 Imaging Last Impressions Tube Change 09/09/16 1011 Signed Impressions: Service Date/Time: Friday, September 09, 2016 11:27 - CONCLUSION: Occluded jejunal port of the GJ tube. Uncomplicated gastrojejunostomy tube exchange as above. Jonel Jones Jr., MD Abdomen X-Ray 08/31/16 0000 Signed Impressions: Service Date/Time: Wednesday, August 31, 2016 16:36 - CONCLUSION: 1. No acute findings. Mild constipation. Durga Dotson MD Chest X-Ray 08/23/16 0000 Signed Impressions: Service Date/Time: Tuesday, August 23, 2016 16:06 - CONCLUSION: Minimal basilar right lung opacity likely representing atelectasis. Kwasi James MD Abdomen/Pelvis CT 04/12/16 0000 Signed Impressions: Service Date/Time: Tuesday, April 12, 2016 20:52 - CONCLUSION: 1. 6.4 cm necrotic mass or abscess in the soft tissues posteriorly just below the sacrum associated with some bony destructive change of the lower most sacrum and coccyx with inflammatory changes extending into the ischiorectal fossa and into the presacral retroperitoneum predominantly on the left side. There is associated fairly marked mural thickening of the anal verge and rectum. 2. There is gastrostomy and Arevalo catheter present. Stable abdominal aortic aneurysm. Durga Dotson MD Head Magnetic Resonance Angiography 03/05/16 0000 Signed Impressions: Service Date/Time: Saturday, March 05, 2016 09:26 - CONCLUSION: Persistent high-grade subtotal occlusive stenotic lesions in the distal right vertebral artery and proximal basilar artery with significant improvement in flow and recanalization following initial presentation of thrombosis. Stable interstitial circulation without significant stenosis. 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 There is decreasing restricted diffusion and increasing loss of volume characteristic of a subacute to chronic infarct. No evidence of acute infarct, acute hemorrhage mass or edema. Ernesto Kulkarni MD Head CT 01/16/16 0000 Signed Impressions: Service Date/Time: Saturday, January 16, 2016 10:51 - CONCLUSION: No extensive low density in the brainstem colin more prominent in the right the left extending into the right middle cerebellar peduncle consistent with brainstem infarct nonhemorrhagic acute Wellington West MD Neck Magnetic Resonance Angiography 12/22/15 1445 Signed Impressions: Service Date/Time: Tuesday, December 22, 2015 09:22 - CONCLUSION: Variant origin of the left vertebral artery from the aortic arch. No evidence of carotid stenosis. Glen Zamora MD Head/Brain Mag Res Venography 12/22/15 0000 Signed Impressions: Service Date/Time: Tuesday, December 22, 2015 09:22 - CONCLUSION: Normal MRV. Jonel Jones Jr., MD Procedures 01/02/16 PEG placement 01/02/16 tracheostomy 07/22/2016 Wide excision of sacral skin wound, biopsy of the cavity lining and debridement. PEG tube replacement 07/29/16 Other Results No new laboratory performed. Objective Remarks GENERAL: on Trach- in no apparent distress. CARDIOVASCULAR: Regular rate and regular rhythm without murmurs, gallops, or rubs. RESPIRATORY: Clear to auscultation. Breath sounds equal bilaterally. No wheezes , rales, or rhonchi. GASTROINTESTINAL: Abdomen soft, non-tender,distended. hypoactive bowel sounds-PEG in place MUSCULOSKELETAL: Extremities without clubbing, cyanosis, or edema. NEURO: awake 1. 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 Tracks with his eyes. Continue Keppra for seizure prophylaxis. PT/OT signed off as patient is unable to participate. -Need placement. Difficult. Appreciate case management assistance. 2. Chronic respiratory failure -Secondary to CVA. Status post tracheostomy. Continue pulmonary toilet and bronchodilators as needed. Continue trach care, suctioning. Levsin as needed. -Pulmonary currently following . Appreciate assistance. 3. Atrial fibrillation -Continue rate control with Cardizem and metoprolol. Echocardiogram in November 2015 shows preserved ejection fraction. Coumadin discontinued secondary to bleeding. Rate controlled. Continue aspirin and prophylactic heparin dose. 4. History of non-Hodgkin's lymphoma - Status post brain biopsy on December 13 by neurosurgery. Pathology consistent with acute infarct without evidence of lymphoma. Oncology has signed all 5. Diabetes mellitus -Hemoglobin A1c is 7. Continue Levemir. Monitor Accu-Cheks and cover with sliding scale insulin. Overall blood sugar continues well controlled. 6. Decubitus ulcer stage IV -Continue wound care, twice-daily dressing changes. Wound care recommendations. Continue pressure relief measures including turning and positioning. Patient's family has declined a diverting colostomy. Previous Wound culture growing Klebsiella. on Augmentin. Status post wide excision of sacral skin and biopsy of the cavity lining with debridement on 1/2/17. continue with pain control. 7. Gastric ulcer, reflux esophagitis - EGD on 07/30/16 showed gastric ulcers. Appreciate GI recommendations. Continue PPI. H&H stable. 8. UTI pseudomonas aeruginosa treated with abx - Resolved. - Repeat Ucx 08/28/16 negative. 9. Constipation: -Having regular bowel movements. -on lactulose. Monitor. Discharge Planning dc planning to SNF-no funding- SSI pending. Medications and IVs Current Medications Medications (Trade) Dose Ordered Sig/Junior Route Start Time Stop Time Status Last Admin (NS Flush) 2 ml UNSCH PRN IVF 12/21/15 06:00 09/28/16 21:18 (Keppra Liq) 500 mg Q12HR TUBE 12/27/15 21:00 10/02/16 22:27 (Tylenol 650 Mg/ 20 ml Liq) 650 mg Q6H PRN TUBE 12/30/15 15:15 08/23/16 12:52 (Mycostatin Powder) 1 applic Q12HR TOPICAL 01/08/16 21:00 10/02/16 22:29 (Pill Splitter) 1 ea UNSCH PRN OTHER 01/14/16 08:30 (Acetic Acid 0.25% Irr Btl) 10 ml Q8HR IRRIGATION 02/05/16 16:00 10/03/16 05:52 (Ativan Inj) 0.5 mg Q4H PRN IV PUSH 03/07/16 23:00 (Paxil Liq) 20 mg DAILY@1900 PEG 03/12/16 19:00 10/02/16 18:57 (Levemir Inj) 35 units HS SQ 03/24/16 21:00 10/02/16 22:28 (Levsin) 0.25 mg Q4H PRN G-TUBE 04/11/16 10:30 08/31/16 05:02 (Zofran Inj) 4 mg Q6HR PRN IV PUSH 04/14/16 19:45 08/10/16 10:16 (Free Water) 200 ml Q4HR TUBE 04/16/16 12:00 10/03/16 04:00 (D50w (Vial) Inj) 25 ml UNSCH PRN IV 04/20/16 12:00 (Glucagon Inj) 1 mg UNSCH PRN IM/SQ 04/20/16 12:00 (K-Lyte Cl Eff) 25 meq DAILY TUBE 05/28/16 09:00 10/02/16 09:00 (Aspirin) 325 mg DAILY TUBE 05/27/16 11:40 10/02/16 09:00 (Lactinex) 1 tab TID PEG 06/07/16 13:00 10/02/16 18:57 (Heparin Inj) 5,000 units Q8HR SQ 06/11/16 14:00 10/03/16 05:51 (Baciguent Oint) 1 applic BID TOP 07/20/16 10:00 10/02/16 22:29 (Protonix Inj) 40 mg Q12H IV PUSH 07/30/16 10:15 10/02/16 22:28 ([place]) 1 spray BID NASAL 08/01/16 21:00 10/02/16 21:00 (Cardizem) 30 mg QID PEG 08/16/16 13:00 10/02/16 22:27 (Trimox) 500 mg Q8HR PO 08/22/16 22:00 10/03/16 05:51 (Colace Liq) 100 mg BID PO 08/30/16 21:00 10/02/16 22:27 (Lactulose Liq) 30 ml DAILY PO 09/02/16 15:30 10/02/16 09:07 (Tears Naturale Opth Soln) 1 drop BID EACH EYE 09/05/16 21:00 10/02/16 22:29 (Lopressor) 50 mg BID PO 09/13/16 21:00 10/02/16 22:27 (Morphine Inj) 1 mg Q24H PRN IV PUSH 09/17/16 14:30 09/24/16 08:34 ([place] 5-325 Mg) 1 tab Q8H PO 09/20/16 13:00 10/02/16 22:28 (Nizoral 2% Cream) 1 applic Q12HR TOPICAL 09/24/16 21:00 10/02/16 22:29 (Senna Liq) 8.8 mg DAILY@1600 PO 09/25/16 17:00 10/02/16 16:48 (Fleets Enema (Adult)) 133 ml UNSCH PRN IA 09/25/16 16:00 (Dulcolax Supp) 10 mg DAILY PRN RECTAL 09/26/16 15:30 A/P Assessment and Plan 1. 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 Tracks with his eyes. Continue Keppra for seizure prophylaxis. PT/OT signed off as patient is unable to participate. -Need placement. Difficult. Appreciate case management assistance. 2. Chronic respiratory failure -Secondary to CVA. Status post tracheostomy. Continue pulmonary toilet and bronchodilators as needed. Continue trach care, suctioning. Levsin as needed. -Pulmonary currently following . Appreciate assistance. 3. Atrial fibrillation -Continue rate control with Cardizem and metoprolol. Echocardiogram in November 2015 shows preserved ejection fraction. Coumadin discontinued secondary to bleeding. Rate controlled. Continue aspirin and prophylactic heparin dose. 4. History of non-Hodgkin's lymphoma - Status post brain biopsy on December 13 by neurosurgery. Pathology consistent with acute infarct without evidence of lymphoma. Oncology has signed all 5. Diabetes mellitus -Hemoglobin A1c is 7. Continue Levemir. Monitor Accu-Cheks and cover with sliding scale insulin. Overall blood sugar continues well controlled. 6. Decubitus ulcer stage IV -Continue wound care, twice-daily dressing changes. Wound care recommendations. Continue pressure relief measures including turning and positioning. Patient's family has declined a diverting colostomy. Previous Wound culture growing Klebsiella. on Augmentin. Status post wide excision of sacral skin and biopsy of the cavity lining with debridement on 07/22/16. continue with pain control. 7. Gastric ulcer, reflux esophagitis - EGD on 07/30/16 showed gastric ulcers. Appreciate GI recommendations. Continue PPI. H&H stable. 8. UTI pseudomonas aeruginosa treated with abx - Resolved. - Repeat Ucx 08/28/16 negative. 9. Constipation: -Having regular bowel movements. -on lactulose. Monitor. DVT prophylaxis on Heparin Discharge Planning dc planning to SNF-no funding- SSI pending. Arnulfo Us MD Oct 03, 2016 08:06
[2016-10-03] MEDS: levETIRAcetam 500 MG/5 ML UDC TUBE SCH ×2 (08:13→21:42)
[2016-10-03] MEDS: LACTOBACILLUS ACIDOPHILUS TAB PEG SCH ×3 (08:13→17:11)
[2016-10-03] MEDS: METOPROLOL TARTRATE 50 MG TAB PO SCH ×2 (08:13→21:00)
[2016-10-03] MEDS: POTASSIUM CHLORIDE 25 MEQ EFFERVESCENT TAB TUBE SCH (08:13)
[2016-10-03] MEDS: DOCUSATE SODIUM 100 MG/10 ML UDC PO SCH ×2 (08:13→21:00)
[2016-10-03] MEDS: LACTULOSE SYRUP 20 GM/30 ML CUP PO SCH (08:13)
[2016-10-03] MEDS: ASPIRIN 325 MG TAB TUBE SCH (08:14)
[2016-10-03] MEDS: NYSTATIN 100,000 U/GM PWD 15 GM BTL TOPICAL SCH ×2 (08:14→21:43)
[2016-10-03] MEDS: BACITRACIN TOP OINT 15 GM TUBE TOP SCH ×2 (08:15→21:00)
[2016-10-03] MEDS: KETOCONAZOLE 2% CREAM 15 GM TOPICAL SCH ×2 (08:15→21:41)
[2016-10-03] MEDS: ARTIFICIAL TEARS OPTH SOLN 15 ML BTL EACH EYE SCH ×2 (08:16→21:41)
[2016-10-03] MEDS: SODIUM CHLORIDE 0.65% NASAL SPRAY 45 ML BTL NASAL SCH ×2 (08:24→21:00)
[2016-10-03] MEDS: DILTIAZEM HCL 30 MG TAB PEG SCH ×4 (08:29→21:42)
--- NOTE | 2016-10-03 09:02 | HHI.PR ---
Subjective Remarks no change on o2 , o2 SAT 96 Objective Vital Signs Date Time Temp Pulse Resp B/P Pulse Ox O2 Delivery O2 Flow Rate FiO2 10/03/16 07:51 95.8 75 20 116/68 75 10/03/16 06:41 96.4 77 16 101/67 97 10/03/16 00:01 99 10/03/16 00:00 97.0 78 18 104/61 77 10/02/16 23:26 84 10/02/16 21:14 100 T-Piece 28 10/02/16 20:00 97.1 87 18 115/73 97 10/02/16 18:28 99 T-piece 6.00 28 10/02/16 16:33 96.7 82 20 117/73 99 10/02/16 14:00 90 10/02/16 12:23 97.5 79 20 106/73 98 10/02/16 09:55 98 T-piece 28 10/02/16 09:55 98 T-piece 28 I/O 10/02/16 10/02/16 10/02/16 10/03/16 10/03/16 10/03/16 07:00 15:00 23:00 07:00 15:00 23:00 Intake Total 1000 ml Output Total 550 ml 700 ml 1000 ml 400 ml Balance 450 ml -700 ml -1000 ml -400 ml Tube Feeding 1000 ml Output Urine Total 550 ml 700 ml 1000 ml 400 ml # Bowel Movements 0 1 1 2 Procedures 01/02/16 PEG placement 01/02/16 tracheostomy 07/22/2016 Wide excision of sacral skin wound, biopsy of the cavity lining and debridement. PEG tube replacement 07/29/16 Objective Remarks GENERAL: SKIN: Warm and dry. HEAD: Atraumatic. Normocephalic. EYES: Pupils equal and round. No scleral icterus. No injection or drainage. ENT: No nasal bleeding or discharge. Mucous membranes pink and moist. NECK: Trachea midline. No JVD. TRACH. [place] CARDIOVASCULAR: Regular rate and rhythm. RESPIRATORY: No accessory muscle use. Clear to auscultation. Breath sounds equal bilaterally. GASTROINTESTINAL: Abdomen soft, non-tender, nondistended. Hepatic and splenic margins not palpable. MUSCULOSKELETAL: Extremities without clubbing, cyanosis, or edema. No obvious deformities. NEUROLOGICAL: Awake and alert. No obvious cranial nerve deficits. Motor grossly within normal limits. Five out of 5 muscle strength in the arms and legs. Normal speech. PSYCHIATRIC: Appropriate mood and affect; insight and judgment normal. Assessment and Plan Assessment and Plan impression respiratory failure CVA S/P TRACHEOSTOMY PLAN O2 NEEDED PULM. TOILET Brandon Taylor MD Oct 03, 2016 09:02
[2016-10-03] MEDS: PANTOPRAZOLE SODIUM 40 MG VIAL IV PUSH SCH ×2 (11:08→21:43)
[2016-10-03] MEDS: SENNOSIDES SYRUP 8.8 MG/5 ML CUP PO SCH (17:11)
[2016-10-03] MEDS: PARoxetine HCL SUSP 20 MG/10 ML UDC PEG SCH (18:42)
[2016-10-03] MEDS: INSULIN DETEMIR 100 UNITS/ML VIAL SQ SCH (21:43)
[2016-10-04] VITALS (10 sets, daily range): BP systolic 101–124; BP diastolic 65–79; PULSE 74–90; RESP 17–23; TEMP 95.2–98.8; O2SAT 97–100
[2016-10-04] MEDS: FREE WATER TUBE SCH ×6 (04:00→20:00)
[2016-10-04] MEDS: ACETAMINOPHEN/HYDROcodone 325 MG/5 MG TAB PO SCH ×3 (05:00→21:03)
[2016-10-04] MEDS: HEPARIN SODIUM - SQ 10,000 UNITS/ML VIAL SQ SCH ×3 (05:53→21:55)
[2016-10-04] MEDS: ACETIC ACID 0.25% SOLN 1000 ML IRR BTL IRRIGATION SCH ×3 (05:53→21:56)
[2016-10-04] MEDS: AMOXICILLIN (TRIHYDRATE) 500 MG CAP PO SCH ×3 (05:53→21:55)
[2016-10-04] MEDS: INSULIN ASPART SUPPLEMENTAL SCALE SQ SCH (06:25)
[2016-10-04] MEDS: POTASSIUM CHLORIDE 25 MEQ EFFERVESCENT TAB TUBE SCH (08:03)
[2016-10-04] MEDS: LACTULOSE SYRUP 20 GM/30 ML CUP PO SCH (08:03)
[2016-10-04] MEDS: ASPIRIN 325 MG TAB TUBE SCH (08:03)
[2016-10-04] MEDS: DOCUSATE SODIUM 100 MG/10 ML UDC PO SCH ×2 (08:03→21:03)
[2016-10-04] MEDS: levETIRAcetam 500 MG/5 ML UDC TUBE SCH ×2 (08:03→21:03)
[2016-10-04] MEDS: LACTOBACILLUS ACIDOPHILUS TAB PEG SCH ×4 (08:04→16:59)
[2016-10-04] MEDS: NYSTATIN 100,000 U/GM PWD 15 GM BTL TOPICAL SCH ×2 (08:07→21:06)
[2016-10-04] MEDS: SODIUM CHLORIDE 0.65% NASAL SPRAY 45 ML BTL NASAL SCH ×2 (08:08→21:00)
[2016-10-04] MEDS: BACITRACIN TOP OINT 15 GM TUBE TOP SCH ×2 (08:08→21:06)
[2016-10-04] MEDS: KETOCONAZOLE 2% CREAM 15 GM TOPICAL SCH ×2 (08:08→21:07)
[2016-10-04] MEDS: ARTIFICIAL TEARS OPTH SOLN 15 ML BTL EACH EYE SCH ×2 (08:08→21:06)
--- NOTE | 2016-10-04 08:27 | HHI.PR ---
Subjective Remarks no change on o2 , o2 SAT 96 Objective Vital Signs Date Time Temp Pulse Resp B/P Pulse Ox O2 Delivery O2 Flow Rate FiO2 10/04/16 05:45 97.5 76 18 124/73 98 10/04/16 00:30 98.8 88 17 115/75 100 10/03/16 22:08 100 T-Piece 28 10/03/16 20:50 97.7 85 19 129/74 100 10/03/16 20:12 77 10/03/16 15:57 96.6 82 20 109/69 97 10/03/16 15:55 18 10/03/16 12:28 96.1 81 20 133/80 100 I/O 10/03/16 10/03/16 10/03/16 10/04/16 10/04/16 10/04/16 07:00 15:00 23:00 07:00 15:00 23:00 Intake Total 922 ml 1420 ml Output Total 400 ml 700 ml 200 ml 900 ml Balance -400 ml -700 ml 722 ml 520 ml Intake Oral 0 ml 0 ml Tube Feeding 722 ml 720 ml Other 200 ml 700 ml Output Urine Total 400 ml 700 ml 200 ml 900 ml # Bowel Movements 2 0 0 Procedures 01/02/16 PEG placement 01/02/16 tracheostomy 07/22/2016 Wide excision of sacral skin wound, biopsy of the cavity lining and debridement. PEG tube replacement 07/29/16 Objective Remarks GENERAL: SKIN: Warm and dry. HEAD: Atraumatic. Normocephalic. EYES: Pupils equal and round. No scleral icterus. No injection or drainage. ENT: No nasal bleeding or discharge. Mucous membranes pink and moist. NECK: Trachea midline. No JVD. TRACH. [place] CARDIOVASCULAR: Regular rate and rhythm. RESPIRATORY: No accessory muscle use. Clear to auscultation. Breath sounds equal bilaterally. GASTROINTESTINAL: Abdomen soft, non-tender, nondistended. Hepatic and splenic margins not palpable. MUSCULOSKELETAL: Extremities without clubbing, cyanosis, or edema. No obvious deformities. NEUROLOGICAL: Awake and alert. No obvious cranial nerve deficits. Motor grossly within normal limits. Five out of 5 muscle strength in the arms and legs. Normal speech. PSYCHIATRIC: Appropriate mood and affect; insight and judgment normal. Assessment and Plan Assessment and Plan impression respiratory failure CVA S/P TRACHEOSTOMY PLAN O2 NEEDED PULM. TOILET Brandon,Brandon Wadie MD Oct 04, 2016 08:27
[2016-10-04] MEDS: DILTIAZEM HCL 30 MG TAB PEG SCH ×4 (09:00→21:03)
[2016-10-04] MEDS: METOPROLOL TARTRATE 50 MG TAB PO SCH ×2 (09:00→21:03)
--- NOTE | 2016-10-04 09:35 | HHI.PR ---
Subjective Remarks This is a pleasant 60 y/o male with Paroxysmal Atrial Fibrillation, Hypertension , Stage IIIa Non Hodgkin Lymphoma, status post Chemotherapy with Rituxan, CHOP 2014, who was brought in to ER with AMS CT scan of the brain showed no focal or acute intracranial Hemorrhage, he had recent Brain Biopsy he became obtunded in ER and was Intubated, Transferred initially to ICU, in no acute distress. clinically no change. Seem in the presence of nurse Shmuel France, his Mother present. Objective Vital Signs Date Time Temp Pulse Resp B/P Pulse Ox O2 Delivery O2 Flow Rate FiO2 10/04/16 05:45 97.5 76 18 124/73 98 10/04/16 00:30 98.8 88 17 115/75 100 10/03/16 22:08 100 T-Piece 28 10/03/16 20:50 97.7 85 19 129/74 100 10/03/16 20:12 77 10/03/16 15:57 96.6 82 20 109/69 97 10/03/16 15:55 18 10/03/16 12:28 96.1 81 20 133/80 100 I/O 10/03/16 10/03/16 10/03/16 10/04/16 10/04/16 10/04/16 07:00 15:00 23:00 07:00 15:00 23:00 Intake Total 922 ml 1420 ml Output Total 400 ml 700 ml 200 ml 900 ml Balance -400 ml -700 ml 722 ml 520 ml Intake Oral 0 ml 0 ml Tube Feeding 722 ml 720 ml Other 200 ml 700 ml Output Urine Total 400 ml 700 ml 200 ml 900 ml # Bowel Movements 2 0 0 Imaging Last Impressions Tube Change 09/09/16 1011 Signed Impressions: Service Date/Time: Friday, September 09, 2016 11:27 - CONCLUSION: Occluded jejunal port of the GJ tube. Uncomplicated gastrojejunostomy tube exchange as above. Jonel Jones Jr., MD Abdomen X-Ray 08/31/16 0000 Signed Impressions: Service Date/Time: Wednesday, August 31, 2016 16:36 - CONCLUSION: 1. No acute findings. Mild constipation. Durga Dotson MD Chest X-Ray 08/23/16 0000 Signed Impressions: Service Date/Time: Tuesday, August 23, 2016 16:06 - CONCLUSION: Minimal basilar right lung opacity likely representing atelectasis. Kwasi James MD Abdomen/Pelvis CT 04/12/16 0000 Signed Impressions: Service Date/Time: Tuesday, April 12, 2016 20:52 - CONCLUSION: 1. 6.4 cm necrotic mass or abscess in the soft tissues posteriorly just below the sacrum associated with some bony destructive change of the lower most sacrum and coccyx with inflammatory changes extending into the ischiorectal fossa and into the presacral retroperitoneum predominantly on the left side. There is associated fairly marked mural thickening of the anal verge and rectum. 2. There is gastrostomy and Arevalo catheter present. Stable abdominal aortic aneurysm. Durga Dotson MD Head Magnetic Resonance Angiography 03/05/16 0000 Signed Impressions: Service Date/Time: Saturday, March 05, 2016 09:26 - CONCLUSION: Persistent high-grade subtotal occlusive stenotic lesions in the distal right vertebral artery and proximal basilar artery with significant improvement in flow and recanalization following initial presentation of thrombosis. Stable interstitial circulation without significant stenosis. 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 There is decreasing restricted diffusion and increasing loss of volume characteristic of a subacute to chronic infarct. No evidence of acute infarct, acute hemorrhage mass or edema. Ernesto Kulkarni MD Head CT 01/16/16 0000 Signed Impressions: Service Date/Time: Saturday, January 16, 2016 10:51 - CONCLUSION: No extensive low density in the brainstem colin more prominent in the right the left extending into the right middle cerebellar peduncle consistent with brainstem infarct nonhemorrhagic acute Wellington West MD Neck Magnetic Resonance Angiography 12/22/15 1445 Signed Impressions: Service Date/Time: Tuesday, December 22, 2015 09:22 - CONCLUSION: Variant origin of the left vertebral artery from the aortic arch. No evidence of carotid stenosis. Glen Zamora MD Head/Brain Mag Res Venography 12/22/15 0000 Signed Impressions: Service Date/Time: Tuesday, December 22, 2015 09:22 - CONCLUSION: Normal MRV. Jonel Jones Jr., MD Procedures 01/02/16 PEG placement 01/02/16 tracheostomy 07/22/2016 Wide excision of sacral skin wound, biopsy of the cavity lining and debridement. PEG tube replacement 07/29/16 Other Results No new laboratory performed. Objective Remarks GENERAL: on Trach- in no apparent distress. CARDIOVASCULAR: Regular rate and regular rhythm without murmurs, gallops, or rubs. RESPIRATORY: Clear to auscultation. Breath sounds equal bilaterally. No wheezes , rales, or rhonchi. GASTROINTESTINAL: Abdomen soft, non-tender,distended. hypoactive bowel sounds-PEG in place MUSCULOSKELETAL: Extremities without clubbing, cyanosis, or edema. NEURO: awake 1. 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 Tracks with his eyes. Continue Keppra for seizure prophylaxis. PT/OT signed off as patient is unable to participate. -Need placement. Difficult. Appreciate case management assistance. 2. Chronic respiratory failure -Secondary to CVA. Status post tracheostomy. Continue pulmonary toilet and bronchodilators as needed. Continue trach care, suctioning. Levsin as needed. -Pulmonary currently following . Appreciate assistance. 3. Atrial fibrillation -Continue rate control with Cardizem and metoprolol. Echocardiogram in November 2015 shows preserved ejection fraction. Coumadin discontinued secondary to bleeding. Rate controlled. Continue aspirin and prophylactic heparin dose. 4. History of non-Hodgkin's lymphoma - Status post brain biopsy on December 13 by neurosurgery. Pathology consistent with acute infarct without evidence of lymphoma. Oncology has signed all 5. Diabetes mellitus -Hemoglobin A1c is 7. Continue Levemir. Monitor Accu-Cheks and cover with sliding scale insulin. Overall blood sugar continues well controlled. 6. Decubitus ulcer stage IV -Continue wound care, twice-daily dressing changes. Wound care recommendations. Continue pressure relief measures including turning and positioning. Patient's family has declined a diverting colostomy. Previous Wound culture growing Klebsiella. on Augmentin. Status post wide excision of sacral skin and biopsy of the cavity lining with debridement on 07/22/16. continue with pain control. 7. Gastric ulcer, reflux esophagitis - EGD on 07/30/16 showed gastric ulcers. Appreciate GI recommendations. Continue PPI. H&H stable. 8. UTI pseudomonas aeruginosa treated with abx - Resolved. - Repeat Ucx 08/28/16 negative. 9. Constipation: -Having regular bowel movements. -on lactulose. Monitor. Discharge Planning dc planning to SNF-no funding- SSI pending. Medications and IVs Current Medications Medications (Trade) Dose Ordered Sig/Junior Route Start Time Stop Time Status Last Admin (NS Flush) 2 ml UNSCH PRN IVF 12/21/15 06:00 09/28/16 21:18 (Keppra Liq) 500 mg Q12HR TUBE 12/27/15 21:00 10/04/16 08:03 (Tylenol 650 Mg/ 20 ml Liq) 650 mg Q6H PRN TUBE 12/30/15 15:15 08/23/16 12:52 (Mycostatin Powder) 1 applic Q12HR TOPICAL 01/08/16 21:00 10/04/16 08:07 (Pill Splitter) 1 ea UNSCH PRN OTHER 01/14/16 08:30 (Acetic Acid 0.25% Irr Btl) 10 ml Q8HR IRRIGATION 02/05/16 16:00 10/04/16 05:53 (Ativan Inj) 0.5 mg Q4H PRN IV PUSH 03/07/16 23:00 (Paxil Liq) 20 mg DAILY@1900 PEG 03/12/16 19:00 10/03/16 18:42 (Levemir Inj) 35 units HS SQ 03/24/16 21:00 10/03/16 21:43 (Levsin) 0.25 mg Q4H PRN G-TUBE 04/11/16 10:30 08/31/16 05:02 (Zofran Inj) 4 mg Q6HR PRN IV PUSH 04/14/16 19:45 08/10/16 10:16 (Free Water) 200 ml Q4HR TUBE 04/16/16 12:00 10/04/16 08:00 (D50w (Vial) Inj) 25 ml UNSCH PRN IV 04/20/16 12:00 (Glucagon Inj) 1 mg UNSCH PRN IM/SQ 04/20/16 12:00 (K-Lyte Cl Eff) 25 meq DAILY TUBE 05/28/16 09:00 10/04/16 08:03 (Aspirin) 325 mg DAILY TUBE 05/27/16 11:40 10/04/16 08:03 (Lactinex) 1 tab TID PEG 06/07/16 13:00 10/04/16 08:04 (Heparin Inj) 5,000 units Q8HR SQ 06/11/16 14:00 10/04/16 05:53 (Baciguent Oint) 1 applic BID TOP 07/20/16 10:00 10/04/16 08:08 (Protonix Inj) 40 mg Q12H IV PUSH 07/30/16 10:15 10/03/16 21:43 ([place] Angel [place]) 1 spray BID NASAL 08/01/16 21:00 10/04/16 08:08 (Cardizem) 30 mg QID PEG 08/16/16 13:00 10/03/16 21:42 (Trimox) 500 mg Q8HR PO 08/22/16 22:00 10/04/16 05:53 (Colace Liq) 100 mg BID PO 08/30/16 21:00 10/04/16 08:03 (Lactulose Liq) 30 ml DAILY PO 09/02/16 15:30 10/04/16 08:03 (Tears Naturale Opth Soln) 1 drop BID EACH EYE 09/05/16 21:00 10/04/16 08:08 (Lopressor) 50 mg BID PO 09/13/16 21:00 10/03/16 21:00 (Morphine Inj) 1 mg Q24H PRN IV PUSH 09/17/16 14:30 09/24/16 08:34 ([place] 5-325 Mg) 1 tab Q8H PO 09/20/16 13:00 10/03/16 21:00 (Nizoral 2% Cream) 1 applic Q12HR TOPICAL 09/24/16 21:00 10/04/16 08:08 (Senna Liq) 8.8 mg DAILY@1600 PO 09/25/16 17:00 10/03/16 17:11 (Fleets Enema (Adult)) 133 ml UNSCH PRN [place] 09/25/16 16:00 (Dulcolax Supp) 10 mg DAILY PRN RECTAL 09/26/16 15:30 A/P Assessment and Plan 1. 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 Tracks with his eyes. Continue Keppra for seizure prophylaxis. PT/OT signed off as patient is unable to participate. -Need placement. Difficult. Appreciate case management assistance. 2. Chronic respiratory failure -Secondary to CVA. Status post tracheostomy. Continue pulmonary toilet and bronchodilators as needed. Continue trach care, suctioning. Levsin as needed. -Pulmonary currently following . Appreciate assistance. 3. Atrial fibrillation -Continue rate control with Cardizem and metoprolol. Echocardiogram in November 2015 shows preserved ejection fraction. Coumadin discontinued secondary to bleeding. Rate controlled. Continue aspirin and prophylactic heparin dose. 4. History of non-Hodgkin's lymphoma - Status post brain biopsy on December 13 by neurosurgery. Pathology consistent with acute infarct without evidence of lymphoma. Oncology has signed all 5. Diabetes mellitus -Hemoglobin A1c is 7. Continue Levemir. Monitor Accu-Cheks and cover with sliding scale insulin. Overall blood sugar continues well controlled. 6. Decubitus ulcer stage IV -Continue wound care, twice-daily dressing changes. Wound care recommendations. Continue pressure relief measures including turning and positioning. Patient's family has declined a diverting colostomy. Previous Wound culture growing Klebsiella. on Augmentin. Status post wide excision of sacral skin and biopsy of the cavity lining with debridement on 07/22/16. continue with pain control. 7. Gastric ulcer, reflux esophagitis - EGD on 07/30/16 showed gastric ulcers. Appreciate GI recommendations. Continue PPI. H&H stable. 8. UTI pseudomonas aeruginosa treated with abx - Resolved. - Repeat Ucx 08/28/16 negative. 9. Constipation: -Having regular bowel movements. -on lactulose. Monitor. DVT prophylaxis on Heparin No changes to anterior assessment. Discharge Planning dc planning to SNF-no funding- SSI pending. Arnulfo Us MD Oct 04, 2016 09:35
[2016-10-04] MEDS: PANTOPRAZOLE SODIUM 40 MG VIAL IV PUSH SCH ×3 (10:15→21:55)
[2016-10-04] MEDS: SENNOSIDES SYRUP 8.8 MG/5 ML CUP PO SCH (16:59)
[2016-10-04] MEDS: PARoxetine HCL SUSP 20 MG/10 ML UDC PEG SCH (18:33)
[2016-10-04] MEDS: INSULIN DETEMIR 100 UNITS/ML VIAL SQ SCH (21:03)
[2016-10-05] VITALS (8 sets, daily range): BP systolic 110–149; BP diastolic 67–83; PULSE 75–94; RESP 18–22; TEMP 97.3–98.7; O2SAT 98–100
[2016-10-05] MEDS: FREE WATER TUBE SCH ×7 (04:00→23:35)
[2016-10-05] MEDS: ACETAMINOPHEN/HYDROcodone 325 MG/5 MG TAB PO SCH ×3 (04:56→23:32)
[2016-10-05] MEDS: ACETIC ACID 0.25% SOLN 1000 ML IRR BTL IRRIGATION SCH ×3 (04:57→23:34)
[2016-10-05] MEDS: AMOXICILLIN (TRIHYDRATE) 500 MG CAP PO SCH ×3 (05:19→22:00)
[2016-10-05] MEDS: HEPARIN SODIUM - SQ 10,000 UNITS/ML VIAL SQ SCH ×3 (05:19→23:31)
[2016-10-05] MEDS: INSULIN ASPART SUPPLEMENTAL SCALE SQ SCH (05:22)
[2016-10-05] MEDS: METOPROLOL TARTRATE 50 MG TAB PO SCH ×2 (08:02→23:31)
[2016-10-05] MEDS: ASPIRIN 325 MG TAB TUBE SCH (08:02)
[2016-10-05] MEDS: BACITRACIN TOP OINT 15 GM TUBE TOP SCH ×2 (08:02→23:33)
[2016-10-05] MEDS: DILTIAZEM HCL 30 MG TAB PEG SCH ×4 (08:02→23:31)
[2016-10-05] MEDS: SODIUM CHLORIDE 0.65% NASAL SPRAY 45 ML BTL NASAL SCH ×2 (08:03→23:00)
[2016-10-05] MEDS: NYSTATIN 100,000 U/GM PWD 15 GM BTL TOPICAL SCH ×2 (08:03→23:33)
[2016-10-05] MEDS: KETOCONAZOLE 2% CREAM 15 GM TOPICAL SCH ×2 (08:03→23:33)
[2016-10-05] MEDS: ARTIFICIAL TEARS OPTH SOLN 15 ML BTL EACH EYE SCH ×2 (08:03→23:34)
[2016-10-05] MEDS: POTASSIUM CHLORIDE 25 MEQ EFFERVESCENT TAB TUBE SCH (08:04)
[2016-10-05] MEDS: levETIRAcetam 500 MG/5 ML UDC TUBE SCH ×2 (08:04→23:32)
[2016-10-05] MEDS: DOCUSATE SODIUM 100 MG/10 ML UDC PO SCH ×2 (08:04→23:32)
[2016-10-05] MEDS: LACTULOSE SYRUP 20 GM/30 ML CUP PO SCH (08:04)
[2016-10-05] MEDS: PANTOPRAZOLE SODIUM 40 MG VIAL IV PUSH SCH ×2 (08:04→23:31)
--- NOTE | 2016-10-05 08:33 | HHI.PR ---
Subjective Remarks This is a pleasant 60 y/o male with Paroxysmal Atrial Fibrillation, Hypertension , Stage IIIa Non Hodgkin Lymphoma, status post Chemotherapy with Rituxan, CHOP 2014, who was brought in to ER with AMS CT scan of the brain showed no focal or acute intracranial Hemorrhage, he had recent Brain Biopsy he became obtunded in ER and was Intubated, Transferred initially to ICU, in no acute distress. No change with anterior assessment seen in the room in the presence at all times of nurse Miss Ruano appreciated, no changes. Objective Vital Signs Date Time Temp Pulse Resp B/P Pulse Ox O2 Delivery O2 Flow Rate FiO2 10/05/16 07:58 98.7 79 20 118/69 100 10/05/16 05:00 97.3 75 19 111/72 98 10/05/16 00:00 98.1 76 18 118/75 98 10/04/16 21:00 97.4 88 23 121/79 98 10/04/16 20:00 90 10/04/16 18:17 99 T-piece 6.00 28 10/04/16 18:17 99 T-piece 28 10/04/16 15:37 96.6 87 20 121/79 99 10/04/16 13:50 18 10/04/16 12:13 97.1 85 20 105/71 99 10/04/16 10:30 98 T-piece 6.00 28 10/04/16 09:00 74 I/O 10/04/16 10/04/16 10/04/16 10/05/16 10/05/16 10/05/16 07:00 15:00 23:00 07:00 15:00 23:00 Intake Total 1420 ml 0 ml 1661 ml Output Total 900 ml 550 ml 200 ml 700 ml Balance 520 ml -550 ml -200 ml 961 ml Intake Oral 0 ml 0 ml 0 ml Tube Feeding 720 ml 1061 ml Other 700 ml 600 ml Output Urine Total 900 ml 550 ml 200 ml 700 ml # Bowel Movements 0 0 0 Imaging Last Impressions Tube Change 09/09/16 1011 Signed Impressions: Service Date/Time: Friday, September 09, 2016 11:27 - CONCLUSION: Occluded jejunal port of the GJ tube. Uncomplicated gastrojejunostomy tube exchange as above. Jonel Jones Jr., MD Abdomen X-Ray 08/31/16 0000 Signed Impressions: Service Date/Time: Wednesday, August 31, 2016 16:36 - CONCLUSION: 1. No acute findings. Mild constipation. Durga Dotson MD Chest X-Ray 08/23/16 0000 Signed Impressions: Service Date/Time: Tuesday, August 23, 2016 16:06 - CONCLUSION: Minimal basilar right lung opacity likely representing atelectasis. Kwasi James MD Abdomen/Pelvis CT 04/12/16 0000 Signed Impressions: Service Date/Time: Tuesday, April 12, 2016 20:52 - CONCLUSION: 1. 6.4 cm necrotic mass or abscess in the soft tissues posteriorly just below the sacrum associated with some bony destructive change of the lower most sacrum and coccyx with inflammatory changes extending into the ischiorectal fossa and into the presacral retroperitoneum predominantly on the left side. There is associated fairly marked mural thickening of the anal verge and rectum. 2. There is gastrostomy and Arevalo catheter present. Stable abdominal aortic aneurysm. Durga Dotson MD Head Magnetic Resonance Angiography 03/05/16 0000 Signed Impressions: Service Date/Time: Saturday, March 05, 2016 09:26 - CONCLUSION: Persistent high-grade subtotal occlusive stenotic lesions in the distal right vertebral artery and proximal basilar artery with significant improvement in flow and recanalization following initial presentation of thrombosis. Stable interstitial circulation without significant stenosis. 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 There is decreasing restricted diffusion and increasing loss of volume characteristic of a subacute to chronic infarct. No evidence of acute infarct, acute hemorrhage mass or edema. Ernesto Kulkarni MD Head CT 01/16/16 0000 Signed Impressions: Service Date/Time: Saturday, January 16, 2016 10:51 - CONCLUSION: No extensive low density in the brainstem colin more prominent in the right the left extending into the right middle cerebellar peduncle consistent with brainstem infarct nonhemorrhagic acute Wellington West MD Neck Magnetic Resonance Angiography 12/22/15 8755 Signed Impressions: Service Date/Time: Tuesday, December 22, 2015 09:22 - CONCLUSION: Variant origin of the left vertebral artery from the aortic arch. No evidence of carotid stenosis. Glen Zamora MD Head/Brain Mag Res Venography 12/22/15 0000 Signed Impressions: Service Date/Time: Tuesday, December 22, 2015 09:22 - CONCLUSION: Normal MRV. Jonel Jones Jr., MD Procedures 01/02/16 PEG placement 01/02/16 tracheostomy 07/22/2016 Wide excision of sacral skin wound, biopsy of the cavity lining and debridement. PEG tube replacement 07/29/16 Other Results No new laboratory Objective Remarks GENERAL: on Trach- in no apparent distress. CARDIOVASCULAR: Regular rate and regular rhythm without murmurs, gallops, or rubs. RESPIRATORY: Clear to auscultation. Breath sounds equal bilaterally. No wheezes , rales, or rhonchi. GASTROINTESTINAL: Abdomen soft, non-tender,distended. hypoactive bowel sounds-PEG in place MUSCULOSKELETAL: Extremities without clubbing, cyanosis, or edema. NEURO: awake 1. 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 Tracks with his eyes. Continue Keppra for seizure prophylaxis. PT/OT signed off as patient is unable to participate. -Need placement. Difficult. Appreciate case management assistance. 2. Chronic respiratory failure -Secondary to CVA. Status post tracheostomy. Continue pulmonary toilet and bronchodilators as needed. Continue trach care, suctioning. Levsin as needed. -Pulmonary currently following . Appreciate assistance. 3. Atrial fibrillation -Continue rate control with Cardizem and metoprolol. Echocardiogram in November 2015 shows preserved ejection fraction. Coumadin discontinued secondary to bleeding. Rate controlled. Continue aspirin and prophylactic heparin dose. 4. History of non-Hodgkin's lymphoma - Status post brain biopsy on December 13 by neurosurgery. Pathology consistent with acute infarct without evidence of lymphoma. Oncology has signed all 5. Diabetes mellitus -Hemoglobin A1c is 7. Continue Levemir. Monitor Accu-Cheks and cover with sliding scale insulin. Overall blood sugar continues well controlled. 6. Decubitus ulcer stage IV -Continue wound care, twice-daily dressing changes. Wound care recommendations. Continue pressure relief measures including turning and positioning. Patient's family has declined a diverting colostomy. Previous Wound culture growing Klebsiella. on Augmentin. Status post wide excision of sacral skin and biopsy of the cavity lining with debridement on 07/22/16. continue with pain control. 7. Gastric ulcer, reflux esophagitis - EGD on 07/30/16 showed gastric ulcers. Appreciate GI recommendations. Continue PPI. H&H stable. 8. UTI pseudomonas aeruginosa treated with abx - Resolved. - Repeat Ucx 08/28/16 negative. 9. Constipation: -Having regular bowel movements. -on lactulose. Monitor. Discharge Planning dc planning to SNF-no funding- SSI pending. Medications and IVs Current Medications Medications (Trade) Dose Ordered Sig/Junior Route Start Time Stop Time Status Last Admin (NS Flush) 2 ml UNSCH PRN IVF 12/21/15 06:00 09/28/16 21:18 (Keppra Liq) 500 mg Q12HR TUBE 12/27/15 21:00 10/05/16 08:04 (Tylenol 650 Mg/ 20 ml Liq) 650 mg Q6H PRN TUBE 12/30/15 15:15 08/23/16 12:52 (Mycostatin Powder) 1 applic Q12HR TOPICAL 01/08/16 21:00 10/05/16 08:03 (Pill Splitter) 1 ea UNSCH PRN OTHER 01/14/16 08:30 (Acetic Acid 0.25% Irr Btl) 10 ml Q8HR IRRIGATION 02/05/16 16:00 10/05/16 04:57 (Ativan Inj) 0.5 mg Q4H PRN IV PUSH 03/07/16 23:00 (Paxil Liq) 20 mg DAILY@1900 PEG 03/12/16 19:00 10/04/16 18:33 (Levemir Inj) 35 units HS SQ 03/24/16 21:00 10/04/16 21:03 (Levsin) 0.25 mg Q4H PRN G-TUBE 04/11/16 10:30 08/31/16 05:02 (Zofran Inj) 4 mg Q6HR PRN IV PUSH 04/14/16 19:45 08/10/16 10:16 (Free Water) 200 ml Q4HR TUBE 04/16/16 12:00 10/05/16 08:00 (D50w (Vial) Inj) 25 ml UNSCH PRN IV 04/20/16 12:00 (Glucagon Inj) 1 mg UNSCH PRN IM/SQ 04/20/16 12:00 (K-Lyte Cl Eff) 25 meq DAILY TUBE 05/28/16 09:00 10/05/16 08:04 (Aspirin) 325 mg DAILY TUBE 05/27/16 11:40 10/05/16 08:02 (Lactinex) 1 tab TID PEG 06/07/16 13:00 10/04/16 16:59 (Heparin Inj) 5,000 units Q8HR SQ 06/11/16 14:00 10/05/16 05:19 (Baciguent Oint) 1 applic BID TOP 07/20/16 10:00 10/05/16 08:02 (Protonix Inj) 40 mg Q12H IV PUSH 07/30/16 10:15 10/05/16 08:04 ([place]) 1 spray BID NASAL 08/01/16 21:00 10/05/16 08:03 (Cardizem) 30 mg QID PEG 08/16/16 13:00 10/05/16 08:02 (Trimox) 500 mg Q8HR PO 08/22/16 22:00 10/05/16 05:19 (Colace Liq) 100 mg BID PO 08/30/16 21:00 10/05/16 08:04 (Lactulose Liq) 30 ml DAILY PO 09/02/16 15:30 10/05/16 08:04 (Tears Naturale Opth Soln) 1 drop BID EACH EYE 09/05/16 21:00 10/05/16 08:03 (Lopressor) 50 mg BID PO 09/13/16 21:00 10/05/16 08:02 (Morphine Inj) 1 mg Q24H PRN IV PUSH 09/17/16 14:30 09/24/16 08:34 ([place] 5-325 Mg) 1 tab Q8H PO 09/20/16 13:00 10/04/16 21:03 (Nizoral 2% Cream) 1 applic Q12HR TOPICAL 09/24/16 21:00 10/05/16 08:03 (Senna Liq) 8.8 mg DAILY@1600 PO 09/25/16 17:00 10/04/16 16:59 (Fleets Enema (Adult)) 133 ml UNSCH PRN [place] 09/25/16 16:00 (Dulcolax Supp) 10 mg DAILY PRN RECTAL 09/26/16 15:30 A/P Assessment and Plan 1. 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 Tracks with his eyes. Continue Keppra for seizure prophylaxis. PT/OT signed off as patient is unable to participate. -Need placement. Difficult. Appreciate case management assistance. 2. Chronic respiratory failure -Secondary to CVA. Status post tracheostomy. Continue pulmonary toilet and bronchodilators as needed. Continue trach care, suctioning. Levsin as needed. -Pulmonary currently following . Appreciate assistance. 3. Atrial fibrillation -Continue rate control with Cardizem and metoprolol. Echocardiogram in November 2015 shows preserved ejection fraction. Coumadin discontinued secondary to bleeding. Rate controlled. Continue aspirin and prophylactic heparin dose. 4. History of non-Hodgkin's lymphoma - Status post brain biopsy on December 13 by neurosurgery. Pathology consistent with acute infarct without evidence of lymphoma. Oncology has signed Off 5. Diabetes mellitus -Hemoglobin A1c is 7. Continue Levemir. Monitor Accu-Cheks and cover with sliding scale insulin. Overall blood sugar continues well controlled. 6. Decubitus ulcer stage IV -Continue wound care, twice-daily dressing changes. Wound care recommendations. Continue pressure relief measures including turning and positioning. Patient's family has declined a diverting colostomy. Previous Wound culture growing Klebsiella. on Augmentin. Status post wide excision of sacral skin and biopsy of the cavity lining with debridement on 07/22/16. continue with pain control. 7. Gastric ulcer, reflux esophagitis - EGD on 07/30/16 showed gastric ulcers. Appreciate GI recommendations. Continue PPI. H&H stable. 8. UTI pseudomonas aeruginosa treated with abx - Resolved. - Repeat Ucx 08/28/16 negative. 9. Constipation: -Having regular bowel movements. -on lactulose. Monitor. DVT prophylaxis on Heparin No changes to anterior assessment. Discharge Planning dc planning to SNF-no funding- SSI pending. Arnulfo Us MD Oct 05, 2016 08:32
[2016-10-05] MEDS: BISACODYL 10 MG SUPP RECTAL PRN (11:30)
[2016-10-05] MEDS: LACTOBACILLUS ACIDOPHILUS TAB PEG SCH ×2 (13:34→18:22)
[2016-10-05] MEDS: SENNOSIDES SYRUP 8.8 MG/5 ML CUP PO SCH (16:24)
[2016-10-05] MEDS: PARoxetine HCL SUSP 20 MG/10 ML UDC PEG SCH (18:22)
[2016-10-05] MEDS: INSULIN DETEMIR 100 UNITS/ML VIAL SQ SCH (23:32)
[2016-10-06] VITALS (8 sets, daily range): BP systolic 100–171; BP diastolic 65–80; PULSE 80–105; RESP 19–22; TEMP 97.1–98.9; O2SAT 98–100
[2016-10-06] MEDS: FREE WATER TUBE SCH ×5 (04:00→20:00)
[2016-10-06] MEDS: ACETAMINOPHEN/HYDROcodone 325 MG/5 MG TAB PO SCH ×3 (06:16→22:21)
[2016-10-06] MEDS: HEPARIN SODIUM - SQ 10,000 UNITS/ML VIAL SQ SCH ×3 (06:16→22:22)
[2016-10-06] MEDS: AMOXICILLIN (TRIHYDRATE) 500 MG CAP PO SCH ×3 (06:16→22:00)
[2016-10-06] MEDS: ACETIC ACID 0.25% SOLN 1000 ML IRR BTL IRRIGATION SCH ×3 (06:16→22:00)
[2016-10-06] MEDS: INSULIN ASPART SUPPLEMENTAL SCALE SQ SCH (06:18)
--- NOTE | 2016-10-06 08:22 | HHI.PR ---
Subjective Remarks This is a pleasant 60 y/o male with Paroxysmal Atrial Fibrillation, Hypertension , Stage IIIa Non Hodgkin Lymphoma, status post Chemotherapy with Rituxan, [facility]OP 2014, who was brought in to ER with AMS CT scan of the brain showed no focal or acute intracranial Hemorrhage, he had recent Brain Biopsy he became obtunded in ER and was Intubated, Transferred initially to ICU, in no acute distress. Seen in his bedroom in the presence of nurse Mr. Guevara and his Mother he had some oxygen desaturation during the night and improved with suction. Objective Vital Signs Date Time Temp Pulse Resp B/P Pulse Ox O2 Delivery O2 Flow Rate FiO2 10/06/16 00:00 98.3 105 22 117/80 99 10/05/16 20:00 98.1 94 22 124/75 99 10/05/16 16:35 98.6 82 20 110/67 99 10/05/16 12:18 98.6 82 20 149/83 99 10/05/16 11:00 78 10/05/16 08:32 100 T-piece 6.00 28 10/05/16 08:32 100 T-piece 6.00 28 I/O 10/05/16 10/05/16 10/05/16 10/06/16 10/06/16 10/06/16 07:00 15:00 23:00 07:00 15:00 23:00 Intake Total 1661 ml Output Total 700 ml 1100 ml 800 ml 750 ml Balance 961 ml -1100 ml -800 ml -750 ml Intake Oral 0 ml Tube Feeding 1061 ml Other 600 ml Output Urine Total 700 ml 1100 ml 800 ml 750 ml # Bowel Movements 0 1 0 Imaging Last Impressions Tube Change 09/09/16 1011 Signed Impressions: Service Date/Time: Friday, September 09, 2016 11:27 - CONCLUSION: Occluded jejunal port of the GJ tube. Uncomplicated gastrojejunostomy tube exchange as above. Jonel Jones Jr., MD Abdomen X-Ray 08/31/16 0000 Signed Impressions: Service Date/Time: Wednesday, August 31, 2016 16:36 - CONCLUSION: 1. No acute findings. Mild constipation. Durga Dotson MD Chest X-Ray 08/23/16 0000 Signed Impressions: Service Date/Time: Tuesday, August 23, 2016 16:06 - CONCLUSION: Minimal basilar right lung opacity likely representing atelectasis. Kwasi James MD Abdomen/Pelvis CT 04/12/16 0000 Signed Impressions: Service Date/Time: Tuesday, April 12, 2016 20:52 - CONCLUSION: 1. 6.4 cm necrotic mass or abscess in the soft tissues posteriorly just below the sacrum associated with some bony destructive change of the lower most sacrum and coccyx with inflammatory changes extending into the ischiorectal fossa and into the presacral retroperitoneum predominantly on the left side. There is associated fairly marked mural thickening of the anal verge and rectum. 2. There is gastrostomy and Arevalo catheter present. Stable abdominal aortic aneurysm. Durga Dotson MD Head Magnetic Resonance Angiography 03/05/16 0000 Signed Impressions: Service Date/Time: Saturday, March 05, 2016 09:26 - CONCLUSION: Persistent high-grade subtotal occlusive stenotic lesions in the distal right vertebral artery and proximal basilar artery with significant improvement in flow and recanalization following initial presentation of thrombosis. Stable interstitial circulation without significant stenosis. 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 There is decreasing restricted diffusion and increasing loss of volume characteristic of a subacute to chronic infarct. No evidence of acute infarct, acute hemorrhage mass or edema. Ernesto Kulkarni MD Head CT 01/16/16 0000 Signed Impressions: Service Date/Time: Saturday, January 16, 2016 10:51 - CONCLUSION: No extensive low density in the brainstem colin more prominent in the right the left extending into the right middle cerebellar peduncle consistent with brainstem infarct nonhemorrhagic acute Wellington West MD Neck Magnetic Resonance Angiography 12/22/15 1445 Signed Impressions: Service Date/Time: Tuesday, December 22, 2015 09:22 - CONCLUSION: Variant origin of the left vertebral artery from the aortic arch. No evidence of carotid stenosis. Glen Zamora MD Head/Brain Mag Res Venography 12/22/15 0000 Signed Impressions: Service Date/Time: Tuesday, December 22, 2015 09:22 - CONCLUSION: Normal MRV. Jonel Jones Jr., MD Procedures 01/02/16 PEG placement 01/02/16 tracheostomy 07/22/2016 Wide excision of sacral skin wound, biopsy of the cavity lining and debridement. PEG tube replacement 07/29/16 Objective Remarks GENERAL: on Trach- in no apparent distress. CARDIOVASCULAR: Regular rate and regular rhythm without murmurs, gallops, or rubs. RESPIRATORY: Clear to auscultation. Breath sounds equal bilaterally. No wheezes , rales, or rhonchi. GASTROINTESTINAL: Abdomen soft, non-tender,distended. hypoactive bowel sounds-PEG in place MUSCULOSKELETAL: Extremities without clubbing, cyanosis, or edema. NEURO: awake 1. 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 Tracks with his eyes. Continue Keppra for seizure prophylaxis. PT/OT signed off as patient is unable to participate. -Need placement. Difficult. Appreciate case management assistance. 2. Chronic respiratory failure -Secondary to CVA. Status post tracheostomy. Continue pulmonary toilet and bronchodilators as needed. Continue trach care, suctioning. Levsin as needed. -Pulmonary currently following . Appreciate assistance. 3. Atrial fibrillation -Continue rate control with Cardizem and metoprolol. Echocardiogram in November 2015 shows preserved ejection fraction. Coumadin discontinued secondary to bleeding. Rate controlled. Continue aspirin and prophylactic heparin dose. 4. History of non-Hodgkin's lymphoma - Status post brain biopsy on December 13 by neurosurgery. Pathology consistent with acute infarct without evidence of lymphoma. Oncology has signed all 5. Diabetes mellitus -Hemoglobin A1c is 7. Continue Levemir. Monitor Accu-Cheks and cover with sliding scale insulin. Overall blood sugar continues well controlled. 6. Decubitus ulcer stage IV -Continue wound care, twice-daily dressing changes. Wound care recommendations. Continue pressure relief measures including turning and positioning. Patient's family has declined a diverting colostomy. Previous Wound culture growing Klebsiella. on Augmentin. Status post wide excision of sacral skin and biopsy of the cavity lining with debridement on 07/22/16. continue with pain control. 7. Gastric ulcer, reflux esophagitis - EGD on 07/30/16 showed gastric ulcers. Appreciate GI recommendations. Continue PPI. H&H stable. 8. UTI pseudomonas aeruginosa treated with abx - Resolved. - Repeat Ucx 08/28/16 negative. 9. Constipation: -Having regular bowel movements. -on lactulose. Monitor. Discharge Planning dc planning to SNF-no funding- SSI pending. Medications and IVs Current Medications Medications (Trade) Dose Ordered Sig/Junior Route Start Time Stop Time Status Last Admin (NS Flush) 2 ml UNSCH PRN IVF 12/21/15 06:00 09/28/16 21:18 (Keppra Liq) 500 mg Q12HR TUBE 12/27/15 21:00 10/05/16 23:32 (Tylenol 650 Mg/ 20 ml Liq) 650 mg Q6H PRN TUBE 12/30/15 15:15 08/23/16 12:52 (Mycostatin Powder) 1 applic Q12HR TOPICAL 01/08/16 21:00 10/05/16 23:33 (Pill Splitter) 1 ea UNSCH PRN OTHER 01/14/16 08:30 (Acetic Acid 0.25% Irr Btl) 10 ml Q8HR IRRIGATION 02/05/16 16:00 10/06/16 06:16 (Ativan Inj) 0.5 mg Q4H PRN IV PUSH 03/07/16 23:00 (Paxil Liq) 20 mg DAILY@1900 PEG 03/12/16 19:00 10/05/16 18:22 (Levemir Inj) 35 units HS SQ 03/24/16 21:00 10/05/16 23:32 (Levsin) 0.25 mg Q4H PRN G-TUBE 04/11/16 10:30 08/31/16 05:02 (Zofran Inj) 4 mg Q6HR PRN IV PUSH 04/14/16 19:45 08/10/16 10:16 (Free Water) 200 ml Q4HR TUBE 04/16/16 12:00 10/06/16 04:00 (D50w (Vial) Inj) 25 ml UNSCH PRN IV 04/20/16 12:00 (Glucagon Inj) 1 mg UNSCH PRN IM/SQ 04/20/16 12:00 (K-Lyte Cl Eff) 25 meq DAILY TUBE 05/28/16 09:00 10/05/16 08:04 (Aspirin) 325 mg DAILY TUBE 05/27/16 11:40 10/05/16 08:02 (Lactinex) 1 tab TID PEG 06/07/16 13:00 10/05/16 18:22 (Heparin Inj) 5,000 units Q8HR SQ 06/11/16 14:00 10/06/16 06:16 (Baciguent Oint) 1 applic BID TOP 07/20/16 10:00 10/05/16 23:33 (Protonix Inj) 40 mg Q12H IV PUSH 07/30/16 10:15 10/05/16 23:31 ([place]) 1 spray BID NASAL 08/01/16 21:00 10/05/16 23:00 (Cardizem) 30 mg QID PEG 08/16/16 13:00 10/05/16 23:31 (Trimox) 500 mg Q8HR PO 08/22/16 22:00 10/06/16 06:16 (Colace Liq) 100 mg BID PO 08/30/16 21:00 10/05/16 23:32 (Lactulose Liq) 30 ml DAILY PO 09/02/16 15:30 10/05/16 08:04 (Tears Naturale Opth Soln) 1 drop BID EACH EYE 09/05/16 21:00 10/05/16 23:34 (Lopressor) 50 mg BID PO 09/13/16 21:00 10/05/16 23:31 (Morphine Inj) 1 mg Q24H PRN IV PUSH 09/17/16 14:30 09/24/16 08:34 ([place] 5-325 Mg) 1 tab Q8H PO 09/20/16 13:00 10/06/16 06:16 (Nizoral 2% Cream) 1 applic Q12HR TOPICAL 09/24/16 21:00 10/05/16 23:33 (Senna Liq) 8.8 mg DAILY@1600 PO 09/25/16 17:00 10/05/16 16:24 (Fleets Enema (Adult)) 133 ml UNSCH PRN [place] 09/25/16 16:00 (Dulcolax Supp) 10 mg DAILY PRN RECTAL 09/26/16 15:30 10/05/16 11:30 A/P Assessment and Plan 1. 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 Tracks with his eyes. Continue Keppra for seizure prophylaxis. PT/OT signed off as patient is unable to participate. -Need placement. Difficult. Appreciate case management assistance. 2. Chronic respiratory failure -Secondary to CVA. Status post tracheostomy. Continue pulmonary toilet and bronchodilators as needed. Continue trach care, suctioning. Levsin as needed. -Pulmonary currently following . Appreciate assistance. 3. Atrial fibrillation -Continue rate control with Cardizem and metoprolol. Echocardiogram in November 2015 shows preserved ejection fraction. Coumadin discontinued secondary to bleeding. Rate controlled. Continue aspirin and prophylactic heparin dose. 4. History of non-Hodgkin's lymphoma - Status post brain biopsy on December 13 by neurosurgery. Pathology consistent with acute infarct without evidence of lymphoma. Oncology has signed Off 5. Diabetes mellitus -Hemoglobin A1c is 7. Continue Levemir. Monitor Accu-Cheks and cover with sliding scale insulin. Overall blood sugar continues well controlled. 6. Decubitus ulcer stage IV -Continue wound care, twice-daily dressing changes. Wound care recommendations. Continue pressure relief measures including turning and positioning. Patient's family has declined a diverting colostomy. Previous Wound culture growing Klebsiella. on Augmentin. Status post wide excision of sacral skin and biopsy of the cavity lining with debridement on 07/22/16. continue with pain control. 7. Gastric ulcer, reflux esophagitis - EGD on 07/30/16 showed gastric ulcers. Appreciate GI recommendations. Continue PPI. H&H stable. 8. UTI pseudomonas aeruginosa treated with abx - Resolved. - Repeat Ucx 08/28/16 negative. 9. Constipation: -Having regular bowel movements. -on lactulose. Monitor. DVT prophylaxis on Heparin No changes to anterior assessment. Discharge Planning dc planning to SNF-no funding- SSI pending. Arnulfo Us MD Oct 06, 2016 08:22
[2016-10-06] MEDS: BACITRACIN TOP OINT 15 GM TUBE TOP SCH ×2 (09:00→21:00)
[2016-10-06] MEDS: METOPROLOL TARTRATE 50 MG TAB PO SCH ×2 (09:00→22:25)
[2016-10-06] MEDS: LACTULOSE SYRUP 20 GM/30 ML CUP PO SCH (09:00)
[2016-10-06] MEDS: SODIUM CHLORIDE 0.65% NASAL SPRAY 45 ML BTL NASAL SCH ×2 (09:00→21:00)
[2016-10-06] MEDS: DILTIAZEM HCL 30 MG TAB PEG SCH ×4 (09:15→22:21)
[2016-10-06] MEDS: ASPIRIN 325 MG TAB TUBE SCH (09:15)
[2016-10-06] MEDS: DOCUSATE SODIUM 100 MG/10 ML UDC PO SCH ×2 (09:15→22:21)
[2016-10-06] MEDS: ARTIFICIAL TEARS OPTH SOLN 15 ML BTL EACH EYE SCH ×2 (09:15→22:23)
[2016-10-06] MEDS: NYSTATIN 100,000 U/GM PWD 15 GM BTL TOPICAL SCH ×2 (09:16→21:00)
[2016-10-06] MEDS: KETOCONAZOLE 2% CREAM 15 GM TOPICAL SCH ×2 (09:16→22:24)
[2016-10-06] MEDS: levETIRAcetam 500 MG/5 ML UDC TUBE SCH ×2 (09:27→22:21)
[2016-10-06] MEDS: LACTOBACILLUS ACIDOPHILUS TAB PEG SCH ×3 (09:27→18:10)
[2016-10-06] MEDS: PANTOPRAZOLE SODIUM 40 MG VIAL IV PUSH SCH ×2 (09:27→22:22)
[2016-10-06] MEDS: POTASSIUM CHLORIDE 25 MEQ EFFERVESCENT TAB TUBE SCH (09:27)
[2016-10-06] MEDS: SENNOSIDES SYRUP 8.8 MG/5 ML CUP PO SCH (16:02)
[2016-10-06] MEDS: PARoxetine HCL SUSP 20 MG/10 ML UDC PEG SCH (18:10)
[2016-10-06] MEDS: INSULIN DETEMIR 100 UNITS/ML VIAL SQ SCH (22:25)
[2016-10-07] VITALS (9 sets, daily range): BP systolic 101–117; BP diastolic 62–70; PULSE 73–86; RESP 17–24; TEMP 95.9–97.9; O2SAT 90–100
[2016-10-07] MEDS: FREE WATER TUBE SCH ×6 (04:00→21:56)
[2016-10-07] MEDS: ACETAMINOPHEN/HYDROcodone 325 MG/5 MG TAB PO SCH ×3 (06:03→21:59)
[2016-10-07] MEDS: HEPARIN SODIUM - SQ 10,000 UNITS/ML VIAL SQ SCH ×3 (06:03→21:59)
[2016-10-07] MEDS: ACETIC ACID 0.25% SOLN 1000 ML IRR BTL IRRIGATION SCH ×2 (06:03→13:30)
[2016-10-07] MEDS: AMOXICILLIN (TRIHYDRATE) 500 MG CAP PO SCH ×2 (06:03→13:30)
[2016-10-07] MEDS: INSULIN ASPART SUPPLEMENTAL SCALE SQ SCH (06:08)
--- NOTE | 2016-10-07 08:25 | HHI.PR ---
Subjective Remarks This is a pleasant 60 y/o male with Paroxysmal Atrial Fibrillation, Hypertension , Stage IIIa Non Hodgkin Lymphoma, status post Chemotherapy with Rituxan, [facility]OP 2014, who was brought in to ER with AMS CT scan of the brain showed no focal or acute intracranial Hemorrhage, he had recent Brain Biopsy he became obtunded in ER and was Intubated, Transferred initially to ICU, No acute distress, Discussed in the room with his Mother and with nurse Miss Allison he has sacral ulcer last seen by ID specialist, 08/23/16 also with Pneumonia recommended to continue Amoxicillin and Cefepime for the next two months. so he has all September and perhaps first days of October with antibiotics. No Nausea, vomit or diarrhea. Objective Vital Signs Date Time Temp Pulse Resp B/P Pulse Ox O2 Delivery O2 Flow Rate FiO2 10/07/16 04:00 97.0 82 20 107/67 97 10/07/16 00:00 97.0 75 20 106/62 100 10/06/16 21:15 87 10/06/16 21:15 100 T-Piece 6.00 28 10/06/16 20:00 100 T-piece 28 10/06/16 20:00 97.1 81 22 118/68 99 10/06/16 18:00 100/65 10/06/16 17:03 98.6 80 20 112/ 99 10/06/16 12:37 98.9 81 20 102/68 98 10/06/16 12:36 91 19 171/69 98 10/06/16 08:26 98.6 90 20 102/71 99 I/O 10/06/16 10/06/16 10/06/16 10/07/16 10/07/16 10/07/16 07:00 15:00 23:00 07:00 15:00 23:00 Intake Total 780 ml 485 ml 200 ml 400 ml Output Total 750 ml 1000 ml Balance 30 ml 485 ml -800 ml 400 ml Tube Feeding 780 ml 485 ml Other 200 ml 400 ml Output Urine Total 750 ml 1000 ml # Bowel Movements 0 Imaging Last Impressions Tube Change 09/09/16 1011 Signed Impressions: Service Date/Time: Friday, September 09, 2016 11:27 - CONCLUSION: Occluded jejunal port of the GJ tube. Uncomplicated gastrojejunostomy tube exchange as above. Jonel Jones Jr., MD Abdomen X-Ray 08/31/16 0000 Signed Impressions: Service Date/Time: Wednesday, August 31, 2016 16:36 - CONCLUSION: 1. No acute findings. Mild constipation. Durga Dotson MD Chest X-Ray 08/23/16 0000 Signed Impressions: Service Date/Time: Tuesday, August 23, 2016 16:06 - CONCLUSION: Minimal basilar right lung opacity likely representing atelectasis. Kwasi James MD Abdomen/Pelvis CT 04/12/16 0000 Signed Impressions: Service Date/Time: Tuesday, April 12, 2016 20:52 - CONCLUSION: 1. 6.4 cm necrotic mass or abscess in the soft tissues posteriorly just below the sacrum associated with some bony destructive change of the lower most sacrum and coccyx with inflammatory changes extending into the ischiorectal fossa and into the presacral retroperitoneum predominantly on the left side. There is associated fairly marked mural thickening of the anal verge and rectum. 2. There is gastrostomy and Arevalo catheter present. Stable abdominal aortic aneurysm. Durga Dotson MD Head Magnetic Resonance Angiography 03/05/16 0000 Signed Impressions: Service Date/Time: Saturday, March 05, 2016 09:26 - CONCLUSION: Persistent high-grade subtotal occlusive stenotic lesions in the distal right vertebral artery and proximal basilar artery with significant improvement in flow and recanalization following initial presentation of thrombosis. Stable interstitial circulation without significant stenosis. 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 There is decreasing restricted diffusion and increasing loss of volume characteristic of a subacute to chronic infarct. No evidence of acute infarct, acute hemorrhage mass or edema. Ernesto Kulkarni MD Head CT 01/16/16 0000 Signed Impressions: Service Date/Time: Saturday, January 16, 2016 10:51 - CONCLUSION: No extensive low density in the brainstem colin more prominent in the right the left extending into the right middle cerebellar peduncle consistent with brainstem infarct nonhemorrhagic acute Wellington West MD Neck Magnetic Resonance Angiography 12/22/15 1445 Signed Impressions: Service Date/Time: Tuesday, December 22, 2015 09:22 - CONCLUSION: Variant origin of the left vertebral artery from the aortic arch. No evidence of carotid stenosis. Glen Zamora MD Head/Brain Mag Res Venography 12/22/15 0000 Signed Impressions: Service Date/Time: Tuesday, December 22, 2015 09:22 - CONCLUSION: Normal MRV. Jonel Jones Jr., MD Procedures 01/02/16 PEG placement 01/02/16 tracheostomy 07/22/2016 Wide excision of sacral skin wound, biopsy of the cavity lining and debridement. PEG tube replacement 07/29/16 Other Results No new laboratory asked for tomorrow. Objective Remarks GENERAL: on Trach- in no apparent distress. CARDIOVASCULAR: Regular rate and regular rhythm without murmurs, gallops, or rubs. RESPIRATORY: Clear to auscultation. Breath sounds equal bilaterally. No wheezes , rales, or rhonchi. GASTROINTESTINAL: Abdomen soft, non-tender,distended. hypoactive bowel sounds-PEG in place MUSCULOSKELETAL: Extremities without clubbing, cyanosis, or edema. NEURO: awake 1. 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 Tracks with his eyes. Continue Keppra for seizure prophylaxis. PT/OT signed off as patient is unable to participate. -Need placement. Difficult. Appreciate case management assistance. 2. Chronic respiratory failure -Secondary to CVA. Status post tracheostomy. Continue pulmonary toilet and bronchodilators as needed. Continue trach care, suctioning. Levsin as needed. -Pulmonary currently following . Appreciate assistance. 3. Atrial fibrillation -Continue rate control with Cardizem and metoprolol. Echocardiogram in November 2015 shows preserved ejection fraction. Coumadin discontinued secondary to bleeding. Rate controlled. Continue aspirin and prophylactic heparin dose. 4. History of non-Hodgkin's lymphoma - Status post brain biopsy on December 13 by neurosurgery. Pathology consistent with acute infarct without evidence of lymphoma. Oncology has signed all 5. Diabetes mellitus -Hemoglobin A1c is 7. Continue Levemir. Monitor Accu-Cheks and cover with sliding scale insulin. Overall blood sugar continues well controlled. 6. Decubitus ulcer stage IV -Continue wound care, twice-daily dressing changes. Wound care recommendations. Continue pressure relief measures including turning and positioning. Patient's family has declined a diverting colostomy. Previous Wound culture growing Klebsiella. on Augmentin. Status post wide excision of sacral skin and biopsy of the cavity lining with debridement on 07/22/16. continue with pain control. 7. Gastric ulcer, reflux esophagitis - EGD on 07/30/16 showed gastric ulcers. Appreciate GI recommendations. Continue PPI. H&H stable. 8. UTI pseudomonas aeruginosa treated with abx - Resolved. - Repeat Ucx 08/28/16 negative. 9. Constipation: -Having regular bowel movements. -on lactulose. Monitor. Discharge Planning dc planning to SNF-no funding- SSI pending. Medications and IVs Current Medications Medications (Trade) Dose Ordered Sig/Junior Route Start Time Stop Time Status Last Admin (NS Flush) 2 ml UNSCH PRN IVF 12/21/15 06:00 09/28/16 21:18 (Keppra Liq) 500 mg Q12HR TUBE 12/27/15 21:00 10/06/16 22:21 (Tylenol 650 Mg/ 20 ml Liq) 650 mg Q6H PRN TUBE 12/30/15 15:15 08/23/16 12:52 (Mycostatin Powder) 1 applic Q12HR TOPICAL 01/08/16 21:00 10/06/16 21:00 (Pill Splitter) 1 ea UNSCH PRN OTHER 01/14/16 08:30 (Acetic Acid 0.25% Irr Btl) 10 ml Q8HR IRRIGATION 02/05/16 16:00 10/07/16 06:03 (Ativan Inj) 0.5 mg Q4H PRN IV PUSH 03/07/16 23:00 (Paxil Liq) 20 mg DAILY@1900 PEG 03/12/16 19:00 10/06/16 18:10 (Levemir Inj) 35 units HS SQ 03/24/16 21:00 10/06/16 22:25 (Levsin) 0.25 mg Q4H PRN G-TUBE 04/11/16 10:30 08/31/16 05:02 (Zofran Inj) 4 mg Q6HR PRN IV PUSH 04/14/16 19:45 08/10/16 10:16 (Free Water) 200 ml Q4HR TUBE 04/16/16 12:00 10/07/16 04:00 (D50w (Vial) Inj) 25 ml UNSCH PRN IV 04/20/16 12:00 (Glucagon Inj) 1 mg UNSCH PRN IM/SQ 04/20/16 12:00 (K-Lyte Cl Eff) 25 meq DAILY TUBE 05/28/16 09:00 10/06/16 09:27 (Aspirin) 325 mg DAILY TUBE 05/27/16 11:40 10/06/16 09:15 (Lactinex) 1 tab TID PEG 06/07/16 13:00 10/06/16 18:10 (Heparin Inj) 5,000 units Q8HR SQ 06/11/16 14:00 10/07/16 06:03 (Baciguent Oint) 1 applic BID TOP 07/20/16 10:00 10/06/16 21:00 (Protonix Inj) 40 mg Q12H IV PUSH 07/30/16 10:15 10/06/16 22:22 ([place] Angel [place]) 1 spray BID NASAL 08/01/16 21:00 10/06/16 21:00 (Cardizem) 30 mg QID PEG 08/16/16 13:00 10/06/16 22:21 (Trimox) 500 mg Q8HR PO 08/22/16 22:00 10/07/16 06:03 (Colace Liq) 100 mg BID PO 08/30/16 21:00 10/06/16 22:21 (Lactulose Liq) 30 ml DAILY PO 09/02/16 15:30 10/06/16 09:00 (Tears Naturale Opth Soln) 1 drop BID EACH EYE 09/05/16 21:00 10/06/16 22:23 (Lopressor) 50 mg BID PO 09/13/16 21:00 10/06/16 22:25 (Morphine Inj) 1 mg Q24H PRN IV PUSH 09/17/16 14:30 09/24/16 08:34 ([place] 5-325 Mg) 1 tab Q8H PO 09/20/16 13:00 10/07/16 06:03 (Nizoral 2% Cream) 1 applic Q12HR TOPICAL 09/24/16 21:00 10/06/16 22:24 (Senna Liq) 8.8 mg DAILY@1600 PO 09/25/16 17:00 10/06/16 16:02 (Fleets Enema (Adult)) 133 ml UNSCH PRN [place] 09/25/16 16:00 (Dulcolax Supp) 10 mg DAILY PRN RECTAL 09/26/16 15:30 10/05/16 11:30 A/P Assessment and Plan 1. 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 Tracks with his eyes. Continue Keppra for seizure prophylaxis. PT/OT signed off as patient is unable to participate. -Need placement. Difficult. Appreciate case management assistance. 2. Chronic respiratory failure -Secondary to CVA. Status post tracheostomy. Continue pulmonary toilet and bronchodilators as needed. Continue trach care, suctioning. Levsin as needed. -Pulmonary currently following . Appreciate assistance. 3. Atrial fibrillation -Continue rate control with Cardizem and metoprolol. Echocardiogram in November 2015 shows preserved ejection fraction. Coumadin discontinued secondary to bleeding. Rate controlled. Continue aspirin and prophylactic heparin dose. 4. History of non-Hodgkin's lymphoma - Status post brain biopsy on December 13 by neurosurgery. Pathology consistent with acute infarct without evidence of lymphoma. Oncology has signed Off 5. Diabetes mellitus -Hemoglobin A1c is 7. Continue Levemir. Monitor Accu-Cheks and cover with sliding scale insulin. Overall blood sugar continues well controlled. 6. Decubitus ulcer stage IV -Continue wound care, twice-daily dressing changes. Wound care recommendations. Continue pressure relief measures including turning and positioning. Patient's family has declined a diverting colostomy. Previous Wound culture growing Klebsiella. on Augmentin. Status post wide excision of sacral skin and biopsy of the cavity lining with debridement on 07/22/16. ID specialist recommended to continue on Amoxicillin and Cefepime for two months will be until the end of September or first days of October. 7. Gastric ulcer, reflux esophagitis - EGD on 07/30/16 showed gastric ulcers. Appreciate GI recommendations. Continue PPI. H&H stable. 8. UTI pseudomonas aeruginosa treated with abx - Resolved. - Repeat Ucx 08/28/16 negative. 9. Constipation: -Having regular bowel movements. -on lactulose. Monitor. DVT prophylaxis on Heparin Perform Laboratory for tomorrow. Discharge Planning dc planning to SNF-no funding- SSI pending. Arnulfo Us MD Oct 07, 2016 08:25
[2016-10-07] MEDS: POTASSIUM CHLORIDE 25 MEQ EFFERVESCENT TAB TUBE SCH (08:48)
[2016-10-07] MEDS: DOCUSATE SODIUM 100 MG/10 ML UDC PO SCH ×2 (08:49→21:58)
[2016-10-07] MEDS: LACTULOSE SYRUP 20 GM/30 ML CUP PO SCH (08:50)
[2016-10-07] MEDS: LACTOBACILLUS ACIDOPHILUS TAB PEG SCH ×3 (08:50→18:01)
[2016-10-07] MEDS: levETIRAcetam 500 MG/5 ML UDC TUBE SCH ×2 (08:50→21:59)
[2016-10-07] MEDS: PANTOPRAZOLE SODIUM 40 MG VIAL IV PUSH SCH (08:50)
[2016-10-07] MEDS: ASPIRIN 325 MG TAB TUBE SCH (08:51)
[2016-10-07] MEDS: METOPROLOL TARTRATE 50 MG TAB PO SCH ×2 (08:51→21:59)
[2016-10-07] MEDS: DILTIAZEM HCL 30 MG TAB PEG SCH ×4 (08:51→21:58)
[2016-10-07] MEDS: NYSTATIN 100,000 U/GM PWD 15 GM BTL TOPICAL SCH ×2 (08:58→21:58)
[2016-10-07] MEDS: SODIUM CHLORIDE 0.65% NASAL SPRAY 45 ML BTL NASAL SCH ×2 (08:58→21:57)
[2016-10-07] MEDS: KETOCONAZOLE 2% CREAM 15 GM TOPICAL SCH ×2 (08:58→21:57)
[2016-10-07] MEDS: BACITRACIN TOP OINT 15 GM TUBE TOP SCH ×2 (08:59→21:58)
[2016-10-07] MEDS: ARTIFICIAL TEARS OPTH SOLN 15 ML BTL EACH EYE SCH ×2 (08:59→21:57)
[2016-10-07] MEDS: BISACODYL 10 MG SUPP RECTAL PRN (14:33)
[2016-10-07] MEDS: SENNOSIDES SYRUP 8.8 MG/5 ML CUP PO SCH (16:00)
--- NOTE | 2016-10-07 16:10 | HHI.PR ---
Subjective Remarks no change on o2 , o2 SAT 96 Objective Vital Signs Date Time Temp Pulse Resp B/P Pulse Ox O2 Delivery O2 Flow Rate FiO2 10/07/16 12:20 79 10/07/16 12:07 96 Trach Collar 28 10/07/16 12:00 96.4 73 19 101/62 99 10/07/16 08:00 96.6 86 24 117/70 99 10/07/16 04:00 97.0 82 20 107/67 97 10/07/16 00:00 97.0 75 20 106/62 100 10/06/16 21:15 87 10/06/16 21:15 100 T-Piece 6.00 28 10/06/16 20:00 100 T-piece 28 10/06/16 20:00 97.1 81 22 118/68 99 10/06/16 18:00 100/65 10/06/16 17:03 98.6 80 20 112/ 99 I/O 10/06/16 10/06/16 10/06/16 10/07/16 10/07/16 10/07/16 07:00 15:00 23:00 07:00 15:00 23:00 Intake Total 780 ml 485 ml 200 ml 400 ml Output Total 750 ml 1000 ml 750 ml Balance 30 ml 485 ml -800 ml 400 ml -750 ml Tube Feeding 780 ml 485 ml Other 200 ml 400 ml Output Urine Total 750 ml 1000 ml 750 ml # Bowel Movements 0 0 Procedures 01/02/16 PEG placement 01/02/16 tracheostomy 07/22/2016 Wide excision of sacral skin wound, biopsy of the cavity lining and debridement. PEG tube replacement 07/29/16 Objective Remarks GENERAL: SKIN: Warm and dry. HEAD: Atraumatic. Normocephalic. EYES: Pupils equal and round. No scleral icterus. No injection or drainage. ENT: No nasal bleeding or discharge. Mucous membranes pink and moist. NECK: Trachea midline. No JVD. TRACH. [place] CARDIOVASCULAR: Regular rate and rhythm. RESPIRATORY: No accessory muscle use. Clear to auscultation. Breath sounds equal bilaterally. GASTROINTESTINAL: Abdomen soft, non-tender, nondistended. Hepatic and splenic margins not palpable. MUSCULOSKELETAL: Extremities without clubbing, cyanosis, or edema. No obvious deformities. NEUROLOGICAL: Awake and alert. No obvious cranial nerve deficits. Motor grossly within normal limits. Five out of 5 muscle strength in the arms and legs. Normal speech. PSYCHIATRIC: Appropriate mood and affect; insight and judgment normal. Assessment and Plan Assessment and Plan impression respiratory failure CVA S/P TRACHEOSTOMY PLAN O2 NEEDED PULM. TOILET Brandon Taylor MD Oct 07, 2016 16:10
[2016-10-07] MEDS: PARoxetine HCL SUSP 20 MG/10 ML UDC PEG SCH (18:01)
[2016-10-07] MEDS: INSULIN DETEMIR 100 UNITS/ML VIAL SQ SCH (22:00)
[2016-10-08] VITALS (8 sets, daily range): BP systolic 103–124; BP diastolic 63–73; PULSE 74–93; RESP 17–19; TEMP 95.7–99; O2SAT 93–100
[2016-10-08] MEDS: ACETIC ACID 0.25% SOLN 1000 ML IRR BTL IRRIGATION SCH ×4 (00:48→22:00)
[2016-10-08] MEDS: PANTOPRAZOLE SODIUM 40 MG VIAL IV PUSH SCH ×3 (00:49→23:01)
[2016-10-08] MEDS: AMOXICILLIN (TRIHYDRATE) 500 MG CAP PO SCH ×4 (00:50→23:00)
[2016-10-08] MEDS: FREE WATER TUBE SCH ×6 (00:50→21:30)
[2016-10-08] MEDS: ACETAMINOPHEN/HYDROcodone 325 MG/5 MG TAB PO SCH ×3 (05:48→23:00)
[2016-10-08] MEDS: HEPARIN SODIUM - SQ 10,000 UNITS/ML VIAL SQ SCH ×3 (05:49→23:01)
[2016-10-08] MEDS: INSULIN ASPART SUPPLEMENTAL SCALE SQ SCH (07:02)
[2016-10-08 07:09] LABS: AUTOMATED NEUTROPHIL # 2.9 TH/MM3 (1.8-7.7); EOSINOPHIL # 0.2 TH/MM3 (0-0.4); EOSINOPHIL % 4.8 % (0.0-4.0); LYMPHOCYTE # 1.2 TH/MM3 (1.0-4.8); MEAN CELL VOLUME 74.8 FL (80.0-100.0); MEAN CORPUSCULAR HEMOGLOBIN 23.1 PG (27.0-34.0); MEAN CORPUSCULAR HGB CONC 30.9 % (32.0-36.0); MONO % 6.9 % (0.0-8.0); NEUT % 62.3 % (16.0-70.0); PLATELET COUNT 218 TH/MM3 (150-450); RED BLOOD COUNT 4.02 MIL/MM3 (4.50-5.90); RED CELL DISTRIBUTION WIDTH 19.8 % (11.6-17.2); WHITE BLOOD COUNT 4.6 TH/MM3 (4.0-11.0)
[2016-10-08 07:13] LABS: HEMO FLAGS AUTO DIFF
[2016-10-08 07:34] LABS: POTASSIUM 3.9 MEQ/L (3.5-5.1)
[2016-10-08 07:55] LABS: SCAN/DIFF AUTO DIFF CONFIRMED
--- NOTE | 2016-10-08 08:02 | HHI.PR ---
Subjective Remarks This is a pleasant 60 y/o male with Paroxysmal Atrial Fibrillation, Hypertension , Stage IIIa Non Hodgkin Lymphoma, status post Chemotherapy with Rituxan, [facility] 2014, who was brought in to ER with AMS CT scan of the brain showed no focal or acute intracranial Hemorrhage, he had recent Brain Biopsy he became obtunded in ER and was Intubated, Transferred initially to ICU, ID specialist started on 08/23/16 with diagnosis of Sacral Ulcer and Pneumonia Amoxicillin and Cefepime for the next two months. so he has all September and perhaps first days of October with antibiotics. 10/08 Seen in his bedroom and discussed with nurse and his mother in the room, no new issues, reviewed the new Laboratory done today and stable Hemoglobin decreased to 9.3 from 9.6 following. Objective Vital Signs Date Time Temp Pulse Resp B/P Pulse Ox O2 Delivery O2 Flow Rate FiO2 10/08/16 05:07 77 10/08/16 04:35 99.0 93 18 110/63 93 10/08/16 00:02 97.4 74 18 110/63 97 10/07/16 20:50 100 T-piece 5.00 28 10/07/16 20:08 97.9 80 18 107/63 90 10/07/16 16:00 95.9 79 17 110/69 98 10/07/16 12:20 79 10/07/16 12:07 96 Trach Collar 28 10/07/16 12:00 96.4 73 19 101/62 99 I/O 10/07/16 10/07/16 10/07/16 10/08/16 10/08/16 10/08/16 07:00 15:00 23:00 07:00 15:00 23:00 Intake Total 400 ml 1859 ml 1045 ml Output Total 750 ml 1800 ml Balance 400 ml -750 ml 1859 ml -755 ml Tube Feeding 1059 ml 645 ml Other 400 ml 800 ml 400 ml Output Urine Total 750 ml 1800 ml # Bowel Movements 0 1 2 Result Diagram: 10/08/16 0605 10/08/16 0605 Imaging Last Impressions Tube Change 09/09/16 1011 Signed Impressions: Service Date/Time: Friday, September 09, 2016 11:27 - CONCLUSION: Occluded jejunal port of the GJ tube. Uncomplicated gastrojejunostomy tube exchange as above. Jonel Jones Jr., MD Abdomen X-Ray 08/31/16 0000 Signed Impressions: Service Date/Time: Wednesday, August 31, 2016 16:36 - CONCLUSION: 1. No acute findings. Mild constipation. Durga Dotson MD Chest X-Ray 08/23/16 0000 Signed Impressions: Service Date/Time: Tuesday, August 23, 2016 16:06 - CONCLUSION: Minimal basilar right lung opacity likely representing atelectasis. Kwasi James MD Abdomen/Pelvis CT 04/12/16 0000 Signed Impressions: Service Date/Time: Tuesday, April 12, 2016 20:52 - CONCLUSION: 1. 6.4 cm necrotic mass or abscess in the soft tissues posteriorly just below the sacrum associated with some bony destructive change of the lower most sacrum and coccyx with inflammatory changes extending into the ischiorectal fossa and into the presacral retroperitoneum predominantly on the left side. There is associated fairly marked mural thickening of the anal verge and rectum. 2. There is gastrostomy and Arevalo catheter present. Stable abdominal aortic aneurysm. Durga Dotson MD Head Magnetic Resonance Angiography 03/05/16 0000 Signed Impressions: Service Date/Time: Saturday, March 05, 2016 09:26 - CONCLUSION: Persistent high-grade subtotal occlusive stenotic lesions in the distal right vertebral artery and proximal basilar artery with significant improvement in flow and recanalization following initial presentation of thrombosis. Stable interstitial circulation without significant stenosis. 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 There is decreasing restricted diffusion and increasing loss of volume characteristic of a subacute to chronic infarct. No evidence of acute infarct, acute hemorrhage mass or edema. Ernesto Kulkarni MD Head CT 01/16/16 0000 Signed Impressions: Service Date/Time: Saturday, January 16, 2016 10:51 - CONCLUSION: No extensive low density in the brainstem colin more prominent in the right the left extending into the right middle cerebellar peduncle consistent with brainstem infarct nonhemorrhagic acute Wellington West MD Neck Magnetic Resonance Angiography 12/22/15 1445 Signed Impressions: Service Date/Time: Tuesday, December 22, 2015 09:22 - CONCLUSION: Variant origin of the left vertebral artery from the aortic arch. No evidence of carotid stenosis. Glen Zamora MD Head/Brain Mag Res Venography 12/22/15 0000 Signed Impressions: Service Date/Time: Tuesday, December 22, 2015 09:22 - CONCLUSION: Normal MRV. Jonel Jones Jr., MD Procedures 01/02/16 PEG placement 01/02/16 tracheostomy 07/22/2016 Wide excision of sacral skin wound, biopsy of the cavity lining and debridement. PEG tube replacement 07/29/16 Other Results Laboratory Tests Test 10/08/16 06:05 White Blood Count 4.6 TH/MM3 Red Blood Count 4.02 MIL/MM3 Hemoglobin 9.3 GM/DL Hematocrit 30.0 % Mean Corpuscular Volume 74.8 FL Mean Corpuscular Hemoglobin 23.1 PG Mean Corpuscular Hemoglobin 30.9 % Concent Red Cell Distribution Width 19.8 % Platelet Count 218 TH/MM3 Mean Platelet Volume 8.6 FL Neutrophils (%) (Auto) 62.3 % Lymphocytes (%) (Auto) 25.0 % Monocytes (%) (Auto) 6.9 % Eosinophils (%) (Auto) 4.8 % Basophils (%) (Auto) 1.0 % Neutrophils # (Auto) 2.9 TH/MM3 Lymphocytes # (Auto) 1.2 TH/MM3 Monocytes # (Auto) 0.3 TH/MM3 Eosinophils # (Auto) 0.2 TH/MM3 Basophils # (Auto) 0.0 TH/MM3 CBC Comment AUTO DIFF Differential Comment AUTO DIFF CONFIRMED Sodium Level 136 MEQ/L Potassium Level 3.9 MEQ/L Chloride Level 101 MEQ/L Carbon Dioxide Level 26.0 MEQ/L Anion Gap 9 MEQ/L Blood Urea Nitrogen 7 MG/DL Creatinine 0.58 MG/DL Estimat Glomerular Filtration 143 ML/MIN Rate Random Glucose 109 MG/DL Calcium Level 9.1 MG/DL Objective Remarks GENERAL: on Trach- in no apparent distress. CARDIOVASCULAR: Regular rate and regular rhythm without murmurs, gallops, or rubs. RESPIRATORY: Clear to auscultation. Breath sounds equal bilaterally. No wheezes , rales, or rhonchi. GASTROINTESTINAL: Abdomen soft, non-tender,distended. hypoactive bowel sounds-PEG in place MUSCULOSKELETAL: Extremities without clubbing, cyanosis, or edema. NEURO: awake 1. 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 Tracks with his eyes. Continue Keppra for seizure prophylaxis. PT/OT signed off as patient is unable to participate. -Need placement. Difficult. Appreciate case management assistance. 2. Chronic respiratory failure -Secondary to CVA. Status post tracheostomy. Continue pulmonary toilet and bronchodilators as needed. Continue trach care, suctioning. Levsin as needed. -Pulmonary currently following . Appreciate assistance. 3. Atrial fibrillation -Continue rate control with Cardizem and metoprolol. Echocardiogram in November 2015 shows preserved ejection fraction. Coumadin discontinued secondary to bleeding. Rate controlled. Continue aspirin and prophylactic heparin dose. 4. History of non-Hodgkin's lymphoma - Status post brain biopsy on December 13 by neurosurgery. Pathology consistent with acute infarct without evidence of lymphoma. Oncology has signed all 5. Diabetes mellitus -Hemoglobin A1c is 7. Continue Levemir. Monitor Accu-Cheks and cover with sliding scale insulin. Overall blood sugar continues well controlled. 6. Decubitus ulcer stage IV -Continue wound care, twice-daily dressing changes. Wound care recommendations. Continue pressure relief measures including turning and positioning. Patient's family has declined a diverting colostomy. Previous Wound culture growing Klebsiella. on Augmentin. Status post wide excision of sacral skin and biopsy of the cavity lining with debridement on 07/22/16. continue with pain control. 7. Gastric ulcer, reflux esophagitis - EGD on 07/30/16 showed gastric ulcers. Appreciate GI recommendations. Continue PPI. H&H stable. 8. UTI pseudomonas aeruginosa treated with abx - Resolved. - Repeat Ucx 08/28/16 negative. 9. Constipation: -Having regular bowel movements. -on lactulose. Monitor. Discharge Planning dc planning to SNF-no funding- SSI pending. Medications and IVs Current Medications Medications (Trade) Dose Ordered Sig/Junior Route Start Time Stop Time Status Last Admin (NS Flush) 2 ml UNSCH PRN IVF 12/21/15 06:00 09/28/16 21:18 (Keppra Liq) 500 mg Q12HR TUBE 12/27/15 21:00 10/07/16 21:59 (Tylenol 650 Mg/ 20 ml Liq) 650 mg Q6H PRN TUBE 12/30/15 15:15 08/23/16 12:52 (Mycostatin Powder) 1 applic Q12HR TOPICAL 01/08/16 21:00 10/07/16 21:58 (Pill Splitter) 1 ea UNSCH PRN OTHER 01/14/16 08:30 (Acetic Acid 0.25% Irr Btl) 10 ml Q8HR IRRIGATION 02/05/16 16:00 10/08/16 05:49 (Ativan Inj) 0.5 mg Q4H PRN IV PUSH 03/07/16 23:00 (Paxil Liq) 20 mg DAILY@1900 PEG 03/12/16 19:00 10/07/16 18:01 (Levemir Inj) 35 units HS SQ 03/24/16 21:00 10/07/16 22:00 (Levsin) 0.25 mg Q4H PRN G-TUBE 04/11/16 10:30 08/31/16 05:02 (Zofran Inj) 4 mg Q6HR PRN IV PUSH 04/14/16 19:45 08/10/16 10:16 (Free Water) 200 ml Q4HR TUBE 04/16/16 12:00 10/08/16 05:48 (D50w (Vial) Inj) 25 ml UNSCH PRN IV 04/20/16 12:00 (Glucagon Inj) 1 mg UNSCH PRN IM/SQ 04/20/16 12:00 (K-Lyte Cl Eff) 25 meq DAILY TUBE 05/28/16 09:00 10/07/16 08:48 (Aspirin) 325 mg DAILY TUBE 05/27/16 11:40 10/07/16 08:51 (Lactinex) 1 tab TID PEG 06/07/16 13:00 10/07/16 18:01 (Heparin Inj) 5,000 units Q8HR SQ 06/11/16 14:00 10/08/16 05:49 (Baciguent Oint) 1 applic BID TOP 07/20/16 10:00 10/07/16 21:58 (Protonix Inj) 40 mg Q12H IV PUSH 07/30/16 10:15 10/08/16 00:49 ([place]) 1 spray BID NASAL 08/01/16 21:00 10/07/16 21:57 (Cardizem) 30 mg QID PEG 08/16/16 13:00 10/07/16 21:58 (Trimox) 500 mg Q8HR PO 08/22/16 22:00 3/21/17 05:49 (Colace Liq) 100 mg BID PO 08/30/16 21:00 10/07/16 21:58 (Lactulose Liq) 30 ml DAILY PO 09/02/16 15:30 10/07/16 08:50 (Tears Naturale Opth Soln) 1 drop BID EACH EYE 09/05/16 21:00 10/07/16 21:57 (Lopressor) 50 mg BID PO 09/13/16 21:00 10/07/16 21:59 (Morphine Inj) 1 mg Q24H PRN IV PUSH 09/17/16 14:30 09/24/16 08:34 ([place] 5-325 Mg) 1 tab Q8H PO 09/20/16 13:00 10/08/16 05:48 (Nizoral 2% Cream) 1 applic Q12HR TOPICAL 09/24/16 21:00 10/07/16 21:57 (Senna Liq) 8.8 mg DAILY@1600 PO 09/25/16 17:00 10/07/16 16:00 (Fleets Enema (Adult)) 133 ml UNSCH PRN SC 09/25/16 16:00 (Dulcolax Supp) 10 mg DAILY PRN RECTAL 09/26/16 15:30 10/07/16 14:33 A/P Assessment and Plan 1. 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 Tracks with his eyes. Continue Keppra for seizure prophylaxis. PT/OT signed off as patient is unable to participate. -Need placement. Difficult. Appreciate case management assistance. 2. Chronic respiratory failure -Secondary to CVA. Status post tracheostomy. Continue pulmonary toilet and bronchodilators as needed. Continue trach care, suctioning. Levsin as needed. -Pulmonary currently following . Appreciate assistance. 3. Atrial fibrillation -Continue rate control with Cardizem and metoprolol. Echocardiogram in November 2015 shows preserved ejection fraction. Coumadin discontinued secondary to bleeding. Rate controlled. Continue aspirin and prophylactic heparin dose. 4. History of non-Hodgkin's lymphoma - Status post brain biopsy on December 13 by neurosurgery. Pathology consistent with acute infarct without evidence of lymphoma. Oncology has signed Off 5. Diabetes mellitus -Hemoglobin A1c is 7. Continue Levemir. Monitor Accu-Cheks and cover with sliding scale insulin. Overall blood sugar continues well controlled. 6. Decubitus ulcer stage IV -Continue wound care, twice-daily dressing changes. Wound care recommendations. Continue pressure relief measures including turning and positioning. Patient's family has declined a diverting colostomy. Previous Wound culture growing Klebsiella. on Augmentin. Status post wide excision of sacral skin and biopsy of the cavity lining with debridement on 07/22/16. ID specialist recommended to continue on Amoxicillin and Cefepime for two months will be until the end of September or first days of October. 7. Gastric ulcer, reflux esophagitis - EGD on 07/30/16 showed gastric ulcers. Appreciate GI recommendations. Continue PPI. H&H stable. 8. UTI pseudomonas aeruginosa treated with abx - Resolved. - Repeat Ucx 08/28/16 negative. 9. Constipation: -Having regular bowel movements. -on lactulose. Monitor. 10. Anemia Hemoglobin 9.3 stable DVT prophylaxis on Heparin Perform Laboratory for tomorrow. Discharge Planning dc planning to SNF-no funding- SSI pending. Arnulfo Us MD Oct 08, 2016 08:02
--- NOTE | 2016-10-08 08:46 | HHI.PR ---
Subjective Remarks opens eyes on o2 , o2 SAT 96 on T PIECE Objective Vital Signs Date Time Temp Pulse Resp B/P Pulse Ox O2 Delivery O2 Flow Rate FiO2 10/08/16 08:00 96.9 79 17 124/73 100 10/08/16 05:07 77 10/08/16 04:35 99.0 93 18 110/63 93 10/08/16 00:02 97.4 74 18 110/63 97 10/07/16 20:50 100 T-piece 5.00 28 10/07/16 20:08 97.9 80 18 107/63 90 10/07/16 16:00 95.9 79 17 110/69 98 10/07/16 12:20 79 10/07/16 12:07 96 Trach Collar 28 10/07/16 12:00 96.4 73 19 101/62 99 I/O 10/07/16 10/07/16 10/07/16 10/08/16 10/08/16 10/08/16 07:00 15:00 23:00 07:00 15:00 23:00 Intake Total 400 ml 1859 ml 1045 ml Output Total 750 ml 1800 ml Balance 400 ml -750 ml 1859 ml -755 ml Tube Feeding 1059 ml 645 ml Other 400 ml 800 ml 400 ml Output Urine Total 750 ml 1800 ml # Bowel Movements 0 1 2 Result Diagram: 10/08/16 0610/08/16 06 Procedures 01/02/16 PEG placement 01/02/16 tracheostomy 07/22/2016 Wide excision of sacral skin wound, biopsy of the cavity lining and debridement. PEG tube replacement 07/29/16 Objective Remarks GENERAL: SKIN: Warm and dry. HEAD: Atraumatic. Normocephalic. EYES: Pupils equal and round. No scleral icterus. No injection or drainage. ENT: No nasal bleeding or discharge. Mucous membranes pink and moist. NECK: Trachea midline. No JVD. TRACH. [place] CARDIOVASCULAR: Regular rate and rhythm. RESPIRATORY: No accessory muscle use. Clear to auscultation. Breath sounds equal bilaterally. GASTROINTESTINAL: Abdomen soft, non-tender, nondistended. Hepatic and splenic margins not palpable. MUSCULOSKELETAL: Extremities without clubbing, cyanosis, or edema. No obvious deformities. NEUROLOGICAL: Awake and alert. No obvious cranial nerve deficits. Motor grossly within normal limits. Five out of 5 muscle strength in the arms and legs. Normal speech. PSYCHIATRIC: Appropriate mood and affect; insight and judgment normal. Assessment and Plan Assessment and Plan impression respiratory failure CVA S/P TRACHEOSTOMY PLAN O2 NEEDED PULM. TOILET Brandon Taylor MD Oct 08, 2016 08:46
[2016-10-08] MEDS: POTASSIUM CHLORIDE 25 MEQ EFFERVESCENT TAB TUBE SCH (09:00)
[2016-10-08] MEDS: ASPIRIN 325 MG TAB TUBE SCH (09:00)
[2016-10-08] MEDS: LACTOBACILLUS ACIDOPHILUS TAB PEG SCH ×3 (09:00→17:45)
[2016-10-08] MEDS: BACITRACIN TOP OINT 15 GM TUBE TOP SCH ×2 (09:00→23:11)
[2016-10-08] MEDS: DILTIAZEM HCL 30 MG TAB PEG SCH ×4 (09:00→23:01)
[2016-10-08] MEDS: SODIUM CHLORIDE 0.65% NASAL SPRAY 45 ML BTL NASAL SCH ×2 (09:00→23:10)
[2016-10-08] MEDS: DOCUSATE SODIUM 100 MG/10 ML UDC PO SCH ×2 (09:00→23:00)
[2016-10-08] MEDS: METOPROLOL TARTRATE 50 MG TAB PO SCH ×2 (09:00→23:00)
[2016-10-08] MEDS: LACTULOSE SYRUP 20 GM/30 ML CUP PO SCH (09:44)
[2016-10-08] MEDS: levETIRAcetam 500 MG/5 ML UDC TUBE SCH ×2 (09:44→23:00)
[2016-10-08] MEDS: ARTIFICIAL TEARS OPTH SOLN 15 ML BTL EACH EYE SCH ×2 (09:45→23:10)
[2016-10-08] MEDS: KETOCONAZOLE 2% CREAM 15 GM TOPICAL SCH ×2 (09:46→23:10)
[2016-10-08] MEDS: NYSTATIN 100,000 U/GM PWD 15 GM BTL TOPICAL SCH ×2 (09:46→23:09)
[2016-10-08] MEDS: SENNOSIDES SYRUP 8.8 MG/5 ML CUP PO SCH (16:00)
[2016-10-08] MEDS: PARoxetine HCL SUSP 20 MG/10 ML UDC PEG SCH (18:23)
[2016-10-08] MEDS: INSULIN DETEMIR 100 UNITS/ML VIAL SQ SCH (23:00)
[2016-10-09] VITALS (8 sets, daily range): BP systolic 100–131; BP diastolic 56–82; PULSE 79–89; RESP 18–19; TEMP 97.4–98.8; O2SAT 94–100
[2016-10-09] MEDS: FREE WATER TUBE SCH ×6 (04:00→20:00)
[2016-10-09] MEDS: ACETAMINOPHEN/HYDROcodone 325 MG/5 MG TAB PO SCH ×2 (05:00→13:00)
[2016-10-09] MEDS: AMOXICILLIN (TRIHYDRATE) 500 MG CAP PO SCH ×2 (05:42→14:45)
[2016-10-09] MEDS: ACETIC ACID 0.25% SOLN 1000 ML IRR BTL IRRIGATION SCH ×2 (05:43→14:00)
[2016-10-09] MEDS: HEPARIN SODIUM - SQ 10,000 UNITS/ML VIAL SQ SCH ×2 (05:43→14:46)
[2016-10-09] MEDS: INSULIN ASPART SUPPLEMENTAL SCALE SQ SCH (06:23)
[2016-10-09] MEDS: BACITRACIN TOP OINT 15 GM TUBE TOP SCH ×2 (09:00→21:00)
[2016-10-09] MEDS: NYSTATIN 100,000 U/GM PWD 15 GM BTL TOPICAL SCH (09:00)
[2016-10-09] MEDS: KETOCONAZOLE 2% CREAM 15 GM TOPICAL SCH (09:00)
[2016-10-09] MEDS: SODIUM CHLORIDE 0.65% NASAL SPRAY 45 ML BTL NASAL SCH ×2 (09:00→21:00)
[2016-10-09] MEDS: ARTIFICIAL TEARS OPTH SOLN 15 ML BTL EACH EYE SCH (09:00)
[2016-10-09] MEDS: ASPIRIN 325 MG TAB TUBE SCH (09:16)
[2016-10-09] MEDS: DILTIAZEM HCL 30 MG TAB PEG SCH ×4 (09:16→22:10)
[2016-10-09] MEDS: levETIRAcetam 500 MG/5 ML UDC TUBE SCH (09:16)
[2016-10-09] MEDS: METOPROLOL TARTRATE 50 MG TAB PO SCH (09:16)
[2016-10-09] MEDS: LACTOBACILLUS ACIDOPHILUS TAB PEG SCH ×3 (09:16→18:00)
[2016-10-09] MEDS: LACTULOSE SYRUP 20 GM/30 ML CUP PO SCH (09:17)
[2016-10-09] MEDS: DOCUSATE SODIUM 100 MG/10 ML UDC PO SCH (09:17)
[2016-10-09] MEDS: POTASSIUM CHLORIDE 25 MEQ EFFERVESCENT TAB TUBE SCH (09:17)
--- NOTE | 2016-10-09 09:19 | HHI.PR ---
Subjective Remarks This is a pleasant 60 y/o male with Paroxysmal Atrial Fibrillation, Hypertension , Stage IIIa Non Hodgkin Lymphoma, status post Chemotherapy with Rituxan, [facility] 2014, who was brought in to ER with AMS CT scan of the brain showed no focal or acute intracranial Hemorrhage, he had recent Brain Biopsy he became obtunded in ER and was Intubated, Transferred initially to ICU, ID specialist started on 08/23/16 with diagnosis of Sacral Ulcer and Pneumonia Amoxicillin and Cefepime for the next two months. so he has all September and perhaps first days of October with antibiotics. 10/08 Seen in his bedroom and discussed with nurse and his mother in the room, no new issues, reviewed the new Laboratory done today and stable Hemoglobin decreased to 9.3 from 9.6 following. 10/09 Seen in the room and discussed with his Mother in the room, also nurse Mr Cunningham no nausea, vomit or diarrhea. Objective Vital Signs Date Time Temp Pulse Resp B/P Pulse Ox O2 Delivery O2 Flow Rate FiO2 10/09/16 04:38 97.4 83 19 100/56 97 10/09/16 00:40 98.2 85 19 131/82 94 10/08/16 20:12 96.9 78 19 121/67 98 10/08/16 16:00 95.9 79 17 115/65 99 10/08/16 14:00 15 10/08/16 12:41 96 T-piece 28 10/08/16 12:00 95.7 74 17 103/69 100 I/O 10/08/16 10/08/16 10/08/16 10/09/16 10/09/16 10/09/16 07:00 15:00 23:00 07:00 15:00 23:00 Intake Total 1045 ml Output Total 1800 ml 950 ml 1500 ml Balance -755 ml -950 ml -1500 ml Tube Feeding 645 ml Other 400 ml Output Urine Total 1800 ml 950 ml 1500 ml # Bowel Movements 2 0 Result Diagram: 10/08/16 0605 10/08/16 0605 Imaging Last Impressions Tube Change 09/09/16 1011 Signed Impressions: Service Date/Time: Friday, September 09, 2016 11:27 - CONCLUSION: Occluded jejunal port of the GJ tube. Uncomplicated gastrojejunostomy tube exchange as above. Jonel Jones Jr., MD Abdomen X-Ray 08/31/16 0000 Signed Impressions: Service Date/Time: Wednesday, August 31, 2016 16:36 - CONCLUSION: 1. No acute findings. Mild constipation. Durga Dotson MD Chest X-Ray 08/23/16 0000 Signed Impressions: Service Date/Time: Tuesday, August 23, 2016 16:06 - CONCLUSION: Minimal basilar right lung opacity likely representing atelectasis. Kwasi James MD Abdomen/Pelvis CT 04/12/16 0000 Signed Impressions: Service Date/Time: Tuesday, April 12, 2016 20:52 - CONCLUSION: 1. 6.4 cm necrotic mass or abscess in the soft tissues posteriorly just below the sacrum associated with some bony destructive change of the lower most sacrum and coccyx with inflammatory changes extending into the ischiorectal fossa and into the presacral retroperitoneum predominantly on the left side. There is associated fairly marked mural thickening of the anal verge and rectum. 2. There is gastrostomy and Arevalo catheter present. Stable abdominal aortic aneurysm. Durga Dotson MD Head Magnetic Resonance Angiography 03/05/16 0000 Signed Impressions: Service Date/Time: Saturday, March 05, 2016 09:26 - CONCLUSION: Persistent high-grade subtotal occlusive stenotic lesions in the distal right vertebral artery and proximal basilar artery with significant improvement in flow and recanalization following initial presentation of thrombosis. Stable interstitial circulation without significant stenosis. 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 There is decreasing restricted diffusion and increasing loss of volume characteristic of a subacute to chronic infarct. No evidence of acute infarct, acute hemorrhage mass or edema. Ernesto Kulkarni MD Head CT 01/16/16 0000 Signed Impressions: Service Date/Time: Saturday, January 16, 2016 10:51 - CONCLUSION: No extensive low density in the brainstem colin more prominent in the right the left extending into the right middle cerebellar peduncle consistent with brainstem infarct nonhemorrhagic acute Wellington West MD Neck Magnetic Resonance Angiography 12/22/15 1445 Signed Impressions: Service Date/Time: Tuesday, December 22, 2015 09:22 - CONCLUSION: Variant origin of the left vertebral artery from the aortic arch. No evidence of carotid stenosis. Glen Zamora MD Head/Brain Mag Res Venography 12/22/15 0000 Signed Impressions: Service Date/Time: Tuesday, December 22, 2015 09:22 - CONCLUSION: Normal MRV. Jonel Jones Jr., MD Procedures 01/02/16 PEG placement 01/02/16 tracheostomy 07/22/2016 Wide excision of sacral skin wound, biopsy of the cavity lining and debridement. PEG tube replacement 07/29/16 Other Results Laboratory Tests Test 10/08/16 06:05 White Blood Count 4.6 TH/MM3 Red Blood Count 4.02 MIL/MM3 Hemoglobin 9.3 GM/DL Hematocrit 30.0 % Mean Corpuscular Volume 74.8 FL Mean Corpuscular Hemoglobin 23.1 PG Mean Corpuscular Hemoglobin 30.9 % Concent Red Cell Distribution Width 19.8 % Platelet Count 218 TH/MM3 Mean Platelet Volume 8.6 FL Neutrophils (%) (Auto) 62.3 % Lymphocytes (%) (Auto) 25.0 % Monocytes (%) (Auto) 6.9 % Eosinophils (%) (Auto) 4.8 % Basophils (%) (Auto) 1.0 % Neutrophils # (Auto) 2.9 TH/MM3 Lymphocytes # (Auto) 1.2 TH/MM3 Monocytes # (Auto) 0.3 TH/MM3 Eosinophils # (Auto) 0.2 TH/MM3 Basophils # (Auto) 0.0 TH/MM3 CBC Comment AUTO DIFF Differential Comment AUTO DIFF CONFIRMED Sodium Level 136 MEQ/L Potassium Level 3.9 MEQ/L Chloride Level 101 MEQ/L Carbon Dioxide Level 26.0 MEQ/L Anion Gap 9 MEQ/L Blood Urea Nitrogen 7 MG/DL Creatinine 0.58 MG/DL Estimat Glomerular Filtration 143 ML/MIN Rate Random Glucose 109 MG/DL Calcium Level 9.1 MG/DL Objective Remarks GENERAL: on Trach- in no apparent distress. CARDIOVASCULAR: Regular rate and regular rhythm without murmurs, gallops, or rubs. RESPIRATORY: Clear to auscultation. Breath sounds equal bilaterally. No wheezes , rales, or rhonchi. GASTROINTESTINAL: Abdomen soft, non-tender,distended. hypoactive bowel sounds-PEG in place MUSCULOSKELETAL: Extremities without clubbing, cyanosis, or edema. NEURO: awake 1. 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 Tracks with his eyes. Continue Keppra for seizure prophylaxis. PT/OT signed off as patient is unable to participate. -Need placement. Difficult. Appreciate case management assistance. 2. Chronic respiratory failure -Secondary to CVA. Status post tracheostomy. Continue pulmonary toilet and bronchodilators as needed. Continue trach care, suctioning. Levsin as needed. -Pulmonary currently following . Appreciate assistance. 3. Atrial fibrillation -Continue rate control with Cardizem and metoprolol. Echocardiogram in November 2015 shows preserved ejection fraction. Coumadin discontinued secondary to bleeding. Rate controlled. Continue aspirin and prophylactic heparin dose. 4. History of non-Hodgkin's lymphoma - Status post brain biopsy on December 13 by neurosurgery. Pathology consistent with acute infarct without evidence of lymphoma. Oncology has signed all 5. Diabetes mellitus -Hemoglobin A1c is 7. Continue Levemir. Monitor Accu-Cheks and cover with sliding scale insulin. Overall blood sugar continues well controlled. 6. Decubitus ulcer stage IV -Continue wound care, twice-daily dressing changes. Wound care recommendations. Continue pressure relief measures including turning and positioning. Patient's family has declined a diverting colostomy. Previous Wound culture growing Klebsiella. on Augmentin. Status post wide excision of sacral skin and biopsy of the cavity lining with debridement on 07/22/16. continue with pain control. 7. Gastric ulcer, reflux esophagitis - EGD on 07/30/16 showed gastric ulcers. Appreciate GI recommendations. Continue PPI. H&H stable. 8. UTI pseudomonas aeruginosa treated with abx - Resolved. - Repeat Ucx 08/28/16 negative. 9. Constipation: -Having regular bowel movements. -on lactulose. Monitor. Discharge Planning dc planning to SNF-no funding- SSI pending. Medications and IVs Current Medications Medications (Trade) Dose Ordered Sig/Junior Route Start Time Stop Time Status Last Admin (NS Flush) 2 ml UNSCH PRN IVF 12/21/15 06:00 09/28/16 21:18 (Keppra Liq) 500 mg Q12HR TUBE 12/27/15 21:00 10/08/16 23:00 (Tylenol 650 Mg/ 20 ml Liq) 650 mg Q6H PRN TUBE 12/30/15 15:15 08/23/16 12:52 (Mycostatin Powder) 1 applic Q12HR TOPICAL 01/08/16 21:00 10/08/16 23:09 (Pill Splitter) 1 ea UNSCH PRN OTHER 01/14/16 08:30 (Acetic Acid 0.25% Irr Btl) 10 ml Q8HR IRRIGATION 02/05/16 16:00 10/09/16 05:43 (Ativan Inj) 0.5 mg Q4H PRN IV PUSH 03/07/16 23:00 (Paxil Liq) 20 mg DAILY@1900 PEG 03/12/16 19:00 10/08/16 18:23 (Levemir Inj) 35 units HS SQ 03/24/16 21:00 10/08/16 23:00 (Levsin) 0.25 mg Q4H PRN G-TUBE 04/11/16 10:30 08/31/16 05:02 (Zofran Inj) 4 mg Q6HR PRN IV PUSH 04/14/16 19:45 08/10/16 10:16 (Free Water) 200 ml Q4HR TUBE 04/16/16 12:00 10/09/16 04:00 (D50w (Vial) Inj) 25 ml UNSCH PRN IV 04/20/16 12:00 (Glucagon Inj) 1 mg UNSCH PRN IM/SQ 04/20/16 12:00 (K-Lyte Cl Eff) 25 meq DAILY TUBE 05/28/16 09:00 10/08/16 09:00 (Aspirin) 325 mg DAILY TUBE 05/27/16 11:40 10/08/16 09:00 (Lactinex) 1 tab TID PEG 06/07/16 13:00 10/08/16 17:45 (Heparin Inj) 5,000 units Q8HR SQ 06/11/16 14:00 10/09/16 05:43 (Baciguent Oint) 1 applic BID TOP 07/20/16 10:00 10/08/16 23:11 (Protonix Inj) 40 mg Q12H IV PUSH 07/30/16 10:15 10/08/16 23:01 ([place] Angel Austin) 1 spray BID NASAL 08/01/16 21:00 10/08/16 23:10 (Cardizem) 30 mg QID PEG 08/16/16 13:00 10/08/16 23:01 (Trimox) 500 mg Q8HR PO 08/22/16 22:00 10/09/16 05:42 (Colace Liq) 100 mg BID PO 08/30/16 21:00 10/08/16 23:00 (Lactulose Liq) 30 ml DAILY PO 09/02/16 15:30 10/08/16 09:44 (Tears Naturale Opth Soln) 1 drop BID EACH EYE 09/05/16 21:00 10/08/16 23:10 (Lopressor) 50 mg BID PO 09/13/16 21:00 10/08/16 23:00 (Morphine Inj) 1 mg Q24H PRN IV PUSH 09/17/16 14:30 09/24/16 08:34 ([place] 5-325 Mg) 1 tab Q8H PO 09/20/16 13:00 10/08/16 23:00 (Nizoral 2% Cream) 1 applic Q12HR TOPICAL 09/24/16 21:00 10/08/16 23:10 (Senna Liq) 8.8 mg DAILY@1600 PO 09/25/16 17:00 10/08/16 16:00 (Fleets Enema (Adult)) 133 ml UNSCH PRN [place] 09/25/16 16:00 (Dulcolax Supp) 10 mg DAILY PRN RECTAL 09/26/16 15:30 10/07/16 14:33 A/P Assessment and Plan 1. 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 Tracks with his eyes. Continue Keppra for seizure prophylaxis. PT/OT signed off as patient is unable to participate. -Need placement. Difficult. Appreciate case management assistance. 2. Chronic respiratory failure -Secondary to CVA. Status post tracheostomy. Continue pulmonary toilet and bronchodilators as needed. Continue trach care, suctioning. Levsin as needed. -Pulmonary currently following . Appreciate assistance. 3. Atrial fibrillation -Continue rate control with Cardizem and metoprolol. Echocardiogram in November 2015 shows preserved ejection fraction. Coumadin discontinued secondary to bleeding. Rate controlled. Continue aspirin and prophylactic heparin dose. 4. History of non-Hodgkin's lymphoma - Status post brain biopsy on December 13 by neurosurgery. Pathology consistent with acute infarct without evidence of lymphoma. Oncology has signed Off 5. Diabetes mellitus -Hemoglobin A1c is 7. Continue Levemir. Monitor Accu-Cheks and cover with sliding scale insulin. Overall blood sugar continues well controlled. 6. Decubitus ulcer stage IV -Continue wound care, twice-daily dressing changes. Wound care recommendations. Continue pressure relief measures including turning and positioning. Patient's family has declined a diverting colostomy. Previous Wound culture growing Klebsiella. on Augmentin. Status post wide excision of sacral skin and biopsy of the cavity lining with debridement on 07/22/16. ID specialist recommended to continue on Amoxicillin and Cefepime for two months will be until the end of September or first days of October. 7. Gastric ulcer, reflux esophagitis - EGD on 07/30/16 showed gastric ulcers. Appreciate GI recommendations. Continue PPI. H&H stable. 8. UTI pseudomonas aeruginosa treated with abx - Resolved. - Repeat Ucx 08/28/16 negative. 9. Constipation: -Having regular bowel movements. -on lactulose. Monitor. 10. Anemia Hemoglobin 9.3 stable DVT prophylaxis on Heparin Perform Laboratory for tomorrow. Discharge Planning dc planning to SNF-no funding- SSI pending. Arnulfo Us MD Oct 09, 2016 09:19
[2016-10-09] MEDS: PANTOPRAZOLE SODIUM 40 MG VIAL IV PUSH SCH (11:45)
--- NOTE | 2016-10-09 16:45 | HHI.PR ---
Subjective Remarks opens eyes on o2 , o2 SAT 96 on T PIECE Objective Vital Signs Date Time Temp Pulse Resp B/P Pulse Ox O2 Delivery O2 Flow Rate FiO2 10/09/16 16:00 98.7 79 19 115/72 100 10/09/16 12:00 97.9 83 18 107/62 100 10/09/16 11:20 98 T-piece 28 10/09/16 11:20 97 T-piece 28 10/09/16 08:00 97.6 85 19 112/66 100 10/09/16 04:38 97.4 83 19 100/56 97 10/09/16 00:40 98.2 85 19 131/82 94 10/08/16 20:12 96.9 78 19 121/67 98 I/O 10/08/16 10/08/16 10/08/16 10/09/16 10/09/16 10/09/16 07:00 15:00 23:00 07:00 15:00 23:00 Intake Total 1045 ml 500 ml Output Total 1800 ml 950 ml 1500 ml 1650 ml Balance -755 ml -950 ml -1500 ml -1150 ml Tube Feeding 645 ml 500 ml Other 400 ml Output Urine Total 1800 ml 950 ml 1500 ml 1650 ml # Bowel Movements 2 0 0 Result Diagram: 10/08/16 0605 10/08/16 06 Procedures 01/02/16 PEG placement 01/02/16 tracheostomy 07/22/2016 Wide excision of sacral skin wound, biopsy of the cavity lining and debridement. PEG tube replacement 07/29/16 Objective Remarks GENERAL: SKIN: Warm and dry. HEAD: Atraumatic. Normocephalic. EYES: Pupils equal and round. No scleral icterus. No injection or drainage. ENT: No nasal bleeding or discharge. Mucous membranes pink and moist. NECK: Trachea midline. No JVD. TRACH. [place] CARDIOVASCULAR: Regular rate and rhythm. RESPIRATORY: No accessory muscle use. Clear to auscultation. Breath sounds equal bilaterally. GASTROINTESTINAL: Abdomen soft, non-tender, nondistended. Hepatic and splenic margins not palpable. MUSCULOSKELETAL: Extremities without clubbing, cyanosis, or edema. No obvious deformities. NEUROLOGICAL: Awake and alert. No obvious cranial nerve deficits. Motor grossly within normal limits. Five out of 5 muscle strength in the arms and legs. Normal speech. PSYCHIATRIC: Appropriate mood and affect; insight and judgment normal. Assessment and Plan Assessment and Plan impression respiratory failure CVA S/P TRACHEOSTOMY PLAN O2 NEEDED PULM. TOILET Brandon Taylor MD Oct 09, 2016 16:45
[2016-10-09] MEDS: SENNOSIDES SYRUP 8.8 MG/5 ML CUP PO SCH (17:44)
[2016-10-09] MEDS: PARoxetine HCL SUSP 20 MG/10 ML UDC PEG SCH (19:00)
[2016-10-10] VITALS (8 sets, daily range): BP systolic 111–136; BP diastolic 68–75; PULSE 75–92; RESP 17–22; TEMP 96.7–98.1; O2SAT 96–100
[2016-10-10] MEDS: METOPROLOL TARTRATE 50 MG TAB PO SCH ×3 (00:04→23:13)
[2016-10-10] MEDS: HEPARIN SODIUM - SQ 10,000 UNITS/ML VIAL SQ SCH ×4 (00:05→23:12)
[2016-10-10] MEDS: DOCUSATE SODIUM 100 MG/10 ML UDC PO SCH ×3 (00:05→23:09)
[2016-10-10] MEDS: PANTOPRAZOLE SODIUM 40 MG VIAL IV PUSH SCH ×3 (00:05→23:13)
[2016-10-10] MEDS: levETIRAcetam 500 MG/5 ML UDC TUBE SCH ×3 (00:05→23:10)
[2016-10-10] MEDS: AMOXICILLIN (TRIHYDRATE) 500 MG CAP PO SCH ×4 (00:05→23:12)
[2016-10-10] MEDS: ACETIC ACID 0.25% SOLN 1000 ML IRR BTL IRRIGATION SCH ×4 (00:11→23:11)
[2016-10-10] MEDS: INSULIN DETEMIR 100 UNITS/ML VIAL SQ SCH ×2 (00:11→23:11)
[2016-10-10] MEDS: ARTIFICIAL TEARS OPTH SOLN 15 ML BTL EACH EYE SCH ×3 (00:12→23:08)
[2016-10-10] MEDS: KETOCONAZOLE 2% CREAM 15 GM TOPICAL SCH ×3 (00:12→23:10)
[2016-10-10] MEDS: NYSTATIN 100,000 U/GM PWD 15 GM BTL TOPICAL SCH ×3 (00:12→23:10)
[2016-10-10] MEDS: ACETAMINOPHEN/HYDROcodone 325 MG/5 MG TAB PO SCH ×4 (00:14→23:07)
[2016-10-10] MEDS: FREE WATER TUBE SCH ×6 (00:15→20:00)
[2016-10-10] MEDS: INSULIN ASPART SUPPLEMENTAL SCALE SQ SCH (06:34)
[2016-10-10] MEDS: DILTIAZEM HCL 30 MG TAB PEG SCH ×4 (08:53→21:00)
[2016-10-10] MEDS: ASPIRIN 325 MG TAB TUBE SCH (08:53)
[2016-10-10] MEDS: LACTULOSE SYRUP 20 GM/30 ML CUP PO SCH (08:53)
[2016-10-10] MEDS: LACTOBACILLUS ACIDOPHILUS TAB PEG SCH ×3 (08:53→16:45)
[2016-10-10] MEDS: POTASSIUM CHLORIDE 25 MEQ EFFERVESCENT TAB TUBE SCH (08:53)
[2016-10-10] MEDS: SODIUM CHLORIDE 0.65% NASAL SPRAY 45 ML BTL NASAL SCH ×2 (09:00→23:08)
[2016-10-10] MEDS: BACITRACIN TOP OINT 15 GM TUBE TOP SCH ×2 (14:05→23:10)
[2016-10-10] MEDS: SENNOSIDES SYRUP 8.8 MG/5 ML CUP PO SCH (16:45)
[2016-10-10] MEDS: PARoxetine HCL SUSP 20 MG/10 ML UDC PEG SCH (19:02)
[2016-10-11] VITALS (8 sets, daily range): BP systolic 110–124; BP diastolic 67–74; PULSE 75–92; RESP 17–26; TEMP 96–99.4; O2SAT 96–100
[2016-10-11] MEDS: FREE WATER TUBE SCH ×6 (04:00→20:00)
[2016-10-11] MEDS: AMOXICILLIN (TRIHYDRATE) 500 MG CAP PO SCH ×3 (05:10→22:45)
[2016-10-11] MEDS: HEPARIN SODIUM - SQ 10,000 UNITS/ML VIAL SQ SCH ×3 (05:10→22:43)
[2016-10-11] MEDS: ACETAMINOPHEN/HYDROcodone 325 MG/5 MG TAB PO SCH ×3 (05:11→22:47)
[2016-10-11] MEDS: ACETIC ACID 0.25% SOLN 1000 ML IRR BTL IRRIGATION SCH ×3 (05:11→22:46)
[2016-10-11] MEDS: INSULIN ASPART SUPPLEMENTAL SCALE SQ SCH (07:31)
[2016-10-11] MEDS: DOCUSATE SODIUM 100 MG/10 ML UDC PO SCH ×2 (07:47→22:43)
[2016-10-11] MEDS: levETIRAcetam 500 MG/5 ML UDC TUBE SCH ×2 (07:47→22:43)
[2016-10-11] MEDS: LACTULOSE SYRUP 20 GM/30 ML CUP PO SCH (07:47)
[2016-10-11] MEDS: POTASSIUM CHLORIDE 25 MEQ EFFERVESCENT TAB TUBE SCH (07:48)
[2016-10-11] MEDS: LACTOBACILLUS ACIDOPHILUS TAB PEG SCH ×3 (07:48→16:59)
[2016-10-11] MEDS: ASPIRIN 325 MG TAB TUBE SCH (07:48)
[2016-10-11] MEDS: ARTIFICIAL TEARS OPTH SOLN 15 ML BTL EACH EYE SCH ×2 (07:58→22:46)
[2016-10-11] MEDS: SODIUM CHLORIDE 0.65% NASAL SPRAY 45 ML BTL NASAL SCH ×2 (07:58→22:47)
[2016-10-11] MEDS: DILTIAZEM HCL 30 MG TAB PEG SCH ×4 (07:59→21:00)
[2016-10-11] MEDS: METOPROLOL TARTRATE 50 MG TAB PO SCH ×2 (07:59→22:44)
[2016-10-11] MEDS: PANTOPRAZOLE SODIUM 40 MG VIAL IV PUSH SCH ×2 (10:21→22:44)
[2016-10-11] MEDS: KETOCONAZOLE 2% CREAM 15 GM TOPICAL SCH ×2 (10:22→22:46)
[2016-10-11] MEDS: NYSTATIN 100,000 U/GM PWD 15 GM BTL TOPICAL SCH ×2 (14:12→22:47)
[2016-10-11] MEDS: BACITRACIN TOP OINT 15 GM TUBE TOP SCH ×2 (16:30→22:46)
[2016-10-11] MEDS: SENNOSIDES SYRUP 8.8 MG/5 ML CUP PO SCH (16:59)
[2016-10-11] MEDS: PARoxetine HCL SUSP 20 MG/10 ML UDC PEG SCH (18:44)
[2016-10-11] MEDS: INSULIN DETEMIR 100 UNITS/ML VIAL SQ SCH (22:47)
[2016-10-12] VITALS (8 sets, daily range): BP systolic 102–135; BP diastolic 62–79; PULSE 78–92; RESP 17–24; TEMP 96.6–98.6; O2SAT 95–99
[2016-10-12] MEDS: FREE WATER TUBE SCH ×6 (04:00→20:00)
[2016-10-12] MEDS: AMOXICILLIN (TRIHYDRATE) 500 MG CAP PO SCH ×3 (06:47→22:57)
[2016-10-12] MEDS: HEPARIN SODIUM - SQ 10,000 UNITS/ML VIAL SQ SCH ×3 (06:47→22:54)
[2016-10-12] MEDS: ACETAMINOPHEN/HYDROcodone 325 MG/5 MG TAB PO SCH ×3 (06:47→22:55)
[2016-10-12] MEDS: ACETIC ACID 0.25% SOLN 1000 ML IRR BTL IRRIGATION SCH ×3 (06:48→22:00)
[2016-10-12] MEDS: INSULIN ASPART SUPPLEMENTAL SCALE SQ SCH (07:00)
[2016-10-12] MEDS: LACTOBACILLUS ACIDOPHILUS TAB PEG SCH ×3 (08:54→17:21)
[2016-10-12] MEDS: DILTIAZEM HCL 30 MG TAB PEG SCH ×4 (08:54→21:00)
[2016-10-12] MEDS: ASPIRIN 325 MG TAB TUBE SCH (08:55)
[2016-10-12] MEDS: METOPROLOL TARTRATE 50 MG TAB PO SCH ×2 (09:00→22:55)
[2016-10-12] MEDS: DOCUSATE SODIUM 100 MG/10 ML UDC PO SCH ×2 (09:00→22:55)
[2016-10-12] MEDS: POTASSIUM CHLORIDE 25 MEQ EFFERVESCENT TAB TUBE SCH (09:00)
[2016-10-12] MEDS: levETIRAcetam 500 MG/5 ML UDC TUBE SCH ×2 (09:00→22:55)
[2016-10-12] MEDS: LACTULOSE SYRUP 20 GM/30 ML CUP PO SCH (09:00)
[2016-10-12] MEDS: ARTIFICIAL TEARS OPTH SOLN 15 ML BTL EACH EYE SCH ×2 (09:04→21:00)
[2016-10-12] MEDS: SODIUM CHLORIDE 0.65% NASAL SPRAY 45 ML BTL NASAL SCH ×2 (09:04→21:00)
[2016-10-12] MEDS: KETOCONAZOLE 2% CREAM 15 GM TOPICAL SCH ×2 (09:05→21:00)
[2016-10-12] MEDS: BACITRACIN TOP OINT 15 GM TUBE TOP SCH ×2 (09:05→21:00)
[2016-10-12] MEDS: NYSTATIN 100,000 U/GM PWD 15 GM BTL TOPICAL SCH ×2 (09:05→21:00)
[2016-10-12] MEDS: PANTOPRAZOLE SODIUM 40 MG VIAL IV PUSH SCH ×2 (10:15→22:55)
[2016-10-12] MEDS: SENNOSIDES SYRUP 8.8 MG/5 ML CUP PO SCH (14:14)
[2016-10-12] MEDS: PARoxetine HCL SUSP 20 MG/10 ML UDC PEG SCH (17:21)
[2016-10-12] MEDS: INSULIN DETEMIR 100 UNITS/ML VIAL SQ SCH (21:00)
[2016-10-13] VITALS (8 sets, daily range): BP systolic 104–144; BP diastolic 62–87; PULSE 70–98; RESP 18–22; TEMP 95.4–99.2; O2SAT 96–100
[2016-10-13] MEDS: FREE WATER TUBE SCH ×6 (04:00→20:00)
[2016-10-13] MEDS: ACETIC ACID 0.25% SOLN 1000 ML IRR BTL IRRIGATION SCH ×3 (06:00→22:00)
[2016-10-13] MEDS: AMOXICILLIN (TRIHYDRATE) 500 MG CAP PO SCH ×3 (06:16→22:03)
[2016-10-13] MEDS: ACETAMINOPHEN/HYDROcodone 325 MG/5 MG TAB PO SCH ×2 (06:17→13:38)
[2016-10-13] MEDS: INSULIN ASPART SUPPLEMENTAL SCALE SQ SCH (06:17)
[2016-10-13] MEDS: HEPARIN SODIUM - SQ 10,000 UNITS/ML VIAL SQ SCH ×3 (06:17→22:02)
[2016-10-13] MEDS: DILTIAZEM HCL 30 MG TAB PEG SCH ×5 (09:00→21:00)
[2016-10-13] MEDS: METOPROLOL TARTRATE 50 MG TAB PO SCH ×2 (09:00→22:03)
[2016-10-13] MEDS: LACTOBACILLUS ACIDOPHILUS TAB PEG SCH (09:13)
[2016-10-13] MEDS: POTASSIUM CHLORIDE 25 MEQ EFFERVESCENT TAB TUBE SCH (09:14)
[2016-10-13] MEDS: ASPIRIN 325 MG TAB TUBE SCH (09:14)
[2016-10-13] MEDS: DOCUSATE SODIUM 100 MG/10 ML UDC PO SCH ×2 (09:15→22:03)
[2016-10-13] MEDS: levETIRAcetam 500 MG/5 ML UDC TUBE SCH ×2 (09:15→22:02)
[2016-10-13] MEDS: LACTULOSE SYRUP 20 GM/30 ML CUP PO SCH (09:16)
[2016-10-13] MEDS: ARTIFICIAL TEARS OPTH SOLN 15 ML BTL EACH EYE SCH ×2 (09:18→21:00)
[2016-10-13] MEDS: KETOCONAZOLE 2% CREAM 15 GM TOPICAL SCH ×2 (09:18→21:00)
[2016-10-13] MEDS: SODIUM CHLORIDE 0.65% NASAL SPRAY 45 ML BTL NASAL SCH ×2 (09:18→21:00)
[2016-10-13] MEDS: BACITRACIN TOP OINT 15 GM TUBE TOP SCH ×2 (09:18→21:00)
[2016-10-13] MEDS: NYSTATIN 100,000 U/GM PWD 15 GM BTL TOPICAL SCH ×2 (09:19→21:00)
[2016-10-13] MEDS: PANTOPRAZOLE SODIUM 40 MG VIAL IV PUSH SCH ×2 (10:45→22:03)
--- NOTE | 2016-10-13 12:30 | HHI.PR ---
Subjective Remarks Patient appears in nad. Per family he is getting tense and has muscle spasms. Says he also has constipation. Will stop probiotics. Give laxative stool softeners. Also will start muscle relaxants. Last BM was 2 days ago Objective Vitals Vital Signs Date Time Temp Pulse Resp B/P Pulse Ox O2 Delivery O2 Flow Rate FiO2 10/13/16 10:51 96 T-piece 28 10/13/16 08:00 96.5 70 21 110/69 96 10/13/16 04:00 98.2 80 22 122/72 97 10/13/16 00:00 99.2 98 22 144/87 99 10/12/16 21:40 98 T-piece 28 10/12/16 21:40 98 T-piece 28 10/12/16 20:00 98.6 92 22 118/67 97 10/12/16 16:00 97.0 86 17 110/66 99 I/O 10/12/16 10/12/16 10/12/16 10/13/16 10/13/16 10/13/16 07:00 15:00 23:00 07:00 15:00 23:00 Intake Total 200 ml Output Total 150 ml 600 ml Balance 50 ml -600 ml Other 200 ml Output Urine Total 150 ml 600 ml # Bowel Movements 0 Objective Remarks Sacral ulcer with appropriate wound care GENERAL: This is a well-nourished, well-developed patient, eyes closed CARDIOVASCULAR: Sinus regular rate without murmurs, gallops, or rubs. RESPIRATORY: Tracheostomy Clear to auscultation. Breath sounds equal bilaterally. No wheezes, rales, or rhonchi. GASTROINTESTINAL: PEG tube Abdomen soft, non-tender, nondistended. Normal active bowel sounds MUSCULOSKELETAL: Extremities without clubbing, cyanosis, or edema. NEURO: Encephalopathic, sleeping Procedures 01/02/16 PEG placement 01/02/16 tracheostomy 07/22/2016 Wide excision of sacral skin wound, biopsy of the cavity lining and debridement. PEG tube replacement 07/29/16 Date of Insertion: Aug 03, 2016 A/P Problem List: (1) CVA (cerebral vascular accident) ICD Code: I63.9 Status: Acute (2) A-fib ICD Code: I48.91 Status: Chronic (3) DM (diabetes mellitus) ICD Code: E11.9 Status: Chronic Assessment and Plan A/P: 1.CVA: Patient presented with 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 Patient is nonverbal. Continue Keppra for seizure prophylaxis. PT/OT signed off as patient is unable to participate. Continue keppra Start flexeryl 10/13 trial x 10 days Bowel regime. Stop lactinex. 2. Chronic respiratory failure: Secondary to CVA. Status post tracheostomy. Continue pulmonary toilet and bronchodilators as needed. Continue trach care, suctioning. Levsin as needed. 3. Atrial fibrillation: Continue rate control with Cardizem and metoprolol. Echocardiogram in November 2015 shows preserved ejection fraction. Coumadin discontinued secondary to bleeding. Continue aspirin and prophylactic heparin dose. 4. History of non-Hodgkin's lymphoma: Status post brain biopsy on December 13 by neurosurgery. Pathology consistent with acute infarct without evidence of lymphoma. Oncology signed off. 5. Diabetes mellitus: Hemoglobin A1c is 7. Continue Levemir. Monitor Accu-Cheks and cover with sliding scale insulin. 6. Decubitus ulcer stage IV: Continue wound care, twice-daily dressing changes.. Wound care recommendations. Continue pressure relief measures including turning and positioning. Patient's family has declined a diverting colostomy. Wound culture growing Klebsiella. Antibiotics per infectious disease. Status post wide excision of sacral skin and biopsy of the cavity lining with debridement on 07/22/16. 7. Gastric ulcer, reflux esophagitis: EGD on 07/30/16 showed gastric ulcers. Appreciate GI recommendations. Continue PPI. H&H stable. 8. UTI pseudomonas aeruginosa treated with abx . Repeat Ucx 08/28/16 negative FEN: Continue Nepro tube feeds. Appreciate dietary recommendations. Continue free water flushes. Supplement potassium. Poor prognosis. DVT prophylaxis: SCDs. CM following for DC plan. Problem Qualifiers (1) DM (diabetes mellitus): Qualified Code: E11.9 - Type 2 diabetes mellitus without complications Nahomy Tatum MD Oct 13, 2016 12:30
[2016-10-13] MEDS: MAGNESIUM HYDROXIDE SUSP 30 ML CUP PO PRN (17:34)
[2016-10-13] MEDS: SENNOSIDES SYRUP 8.8 MG/5 ML CUP PO SCH (17:34)
[2016-10-13] MEDS: PARoxetine HCL SUSP 20 MG/10 ML UDC PEG SCH ×2 (17:34→18:55)
[2016-10-13] MEDS: INSULIN DETEMIR 100 UNITS/ML VIAL SQ SCH (21:00)
[2016-10-14] VITALS (9 sets, daily range): BP systolic 106–150; BP diastolic 55–78; PULSE 82–94; RESP 19–22; TEMP 96.6–98.1; O2SAT 95–99
[2016-10-14] MEDS: FREE WATER TUBE SCH ×7 (04:00→23:38)
[2016-10-14] MEDS: ACETIC ACID 0.25% SOLN 1000 ML IRR BTL IRRIGATION SCH ×3 (06:00→22:00)
[2016-10-14] MEDS: INSULIN ASPART SUPPLEMENTAL SCALE SQ SCH (07:00)
[2016-10-14] MEDS: AMOXICILLIN (TRIHYDRATE) 500 MG CAP PO SCH ×3 (07:32→22:00)
[2016-10-14] MEDS: HEPARIN SODIUM - SQ 10,000 UNITS/ML VIAL SQ SCH ×3 (07:32→22:00)
[2016-10-14] MEDS: ARTIFICIAL TEARS OPTH SOLN 15 ML BTL EACH EYE SCH ×2 (08:04→21:00)
[2016-10-14] MEDS: DILTIAZEM HCL 30 MG TAB PEG SCH ×4 (08:04→21:00)
[2016-10-14] MEDS: SODIUM CHLORIDE 0.65% NASAL SPRAY 45 ML BTL NASAL SCH ×2 (08:04→21:00)
[2016-10-14] MEDS: ASPIRIN 325 MG TAB TUBE SCH (08:05)
[2016-10-14] MEDS: LACTULOSE SYRUP 20 GM/30 ML CUP PO SCH (08:05)
[2016-10-14] MEDS: DOCUSATE SODIUM 100 MG/10 ML UDC PO SCH ×2 (08:05→21:00)
[2016-10-14] MEDS: METOPROLOL TARTRATE 50 MG TAB PO SCH ×2 (08:05→21:00)
[2016-10-14] MEDS: POTASSIUM CHLORIDE 25 MEQ EFFERVESCENT TAB TUBE SCH (08:05)
[2016-10-14] MEDS: BACITRACIN TOP OINT 15 GM TUBE TOP SCH ×2 (08:05→21:00)
[2016-10-14] MEDS: KETOCONAZOLE 2% CREAM 15 GM TOPICAL SCH ×2 (08:05→21:00)
[2016-10-14] MEDS: levETIRAcetam 500 MG/5 ML UDC TUBE SCH ×2 (08:05→21:00)
[2016-10-14] MEDS: NYSTATIN 100,000 U/GM PWD 15 GM BTL TOPICAL SCH ×2 (08:05→21:00)
[2016-10-14] MEDS: PANTOPRAZOLE SODIUM 40 MG VIAL IV PUSH SCH ×2 (11:04→22:15)
--- NOTE | 2016-10-14 14:22 | HHI.PR ---
Subjective Remarks Patient is awake. Appears in nad. Family at bedside. PEG tube is clogged, dispite multiple attempts to flush. IR reconsulted. Objective Vitals Vital Signs Date Time Temp Pulse Resp B/P Pulse Ox O2 Delivery O2 Flow Rate FiO2 10/14/16 12:15 97.8 82 20 110/78 95 10/14/16 10:31 97 T-piece 6.00 28 10/14/16 09:00 98.1 94 20 106/55 96 10/14/16 06:22 97 T-piece 28 10/14/16 04:00 96.8 90 22 131/78 99 10/14/16 00:00 96.6 86 20 150/76 99 10/13/16 20:00 95.4 88 20 114/72 97 10/13/16 18:00 76 10/13/16 16:00 97.0 88 19 112/62 100 I/O 10/13/16 10/13/16 10/13/16 10/14/16 10/14/16 10/14/16 07:00 15:00 23:00 07:00 15:00 23:00 Intake Total 1000 ml Output Total 600 ml 800 ml 900 ml 650 ml Balance -600 ml -800 ml 100 ml -650 ml Tube Irrigant 400 ml Other 600 ml Output Urine Total 600 ml 800 ml 900 ml 650 ml Stool Total 0 ml # Bowel Movements 0 0 0 0 1 Imaging Last Impressions Tube Change 09/09/16 1011 Signed Impressions: Service Date/Time: Friday, September 09, 2016 11:27 - CONCLUSION: Occluded jejunal port of the GJ tube. Uncomplicated gastrojejunostomy tube exchange as above. Jonel Jones Jr., MD Abdomen X-Ray 08/31/16 0000 Signed Impressions: Service Date/Time: Wednesday, August 31, 2016 16:36 - CONCLUSION: 1. No acute findings. Mild constipation. Durga Dotson MD Chest X-Ray 08/23/16 0000 Signed Impressions: Service Date/Time: Tuesday, August 23, 2016 16:06 - CONCLUSION: Minimal basilar right lung opacity likely representing atelectasis. Kwasi James MD Abdomen/Pelvis CT 04/12/16 0000 Signed Impressions: Service Date/Time: Tuesday, April 12, 2016 20:52 - CONCLUSION: 1. 6.4 cm necrotic mass or abscess in the soft tissues posteriorly just below the sacrum associated with some bony destructive change of the lower most sacrum and coccyx with inflammatory changes extending into the ischiorectal fossa and into the presacral retroperitoneum predominantly on the left side. There is associated fairly marked mural thickening of the anal verge and rectum. 2. There is gastrostomy and Arevalo catheter present. Stable abdominal aortic aneurysm. Durga Dotson MD Head Magnetic Resonance Angiography 03/05/16 0000 Signed Impressions: Service Date/Time: Saturday, March 05, 2016 09:26 - CONCLUSION: Persistent high-grade subtotal occlusive stenotic lesions in the distal right vertebral artery and proximal basilar artery with significant improvement in flow and recanalization following initial presentation of thrombosis. Stable interstitial circulation without significant stenosis. 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 There is decreasing restricted diffusion and increasing loss of volume characteristic of a subacute to chronic infarct. No evidence of acute infarct, acute hemorrhage mass or edema. Ernesto Kulkarni MD Head CT 01/16/16 0000 Signed Impressions: Service Date/Time: Saturday, January 16, 2016 10:51 - CONCLUSION: No extensive low density in the brainstem colin more prominent in the right the left extending into the right middle cerebellar peduncle consistent with brainstem infarct nonhemorrhagic acute Wellington West MD Neck Magnetic Resonance Angiography 12/22/15 1445 Signed Impressions: Service Date/Time: Tuesday, December 22, 2015 09:22 - CONCLUSION: Variant origin of the left vertebral artery from the aortic arch. No evidence of carotid stenosis. Glen Zamora MD Head/Brain Mag Res Venography 12/22/15 0000 Signed Impressions: Service Date/Time: Tuesday, December 22, 2015 09:22 - CONCLUSION: Normal MRV. Jonel Jones Jr., MD Objective Remarks Sacral ulcer with appropriate wound care GENERAL: This is a well-nourished, well-developed patient, eyes closed CARDIOVASCULAR: Sinus regular rate without murmurs, gallops, or rubs. RESPIRATORY: Tracheostomy Clear to auscultation. Breath sounds equal bilaterally. No wheezes, rales, or rhonchi. GASTROINTESTINAL: PEG tube Abdomen soft, non-tender, nondistended. Normal active bowel sounds MUSCULOSKELETAL: Extremities without clubbing, cyanosis, or edema. NEURO: Encephalopathic, sleeping Procedures 01/02/16 PEG placement 01/02/16 tracheostomy 07/22/2016 Wide excision of sacral skin wound, biopsy of the cavity lining and debridement. 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 Patient is nonverbal. Continue Keppra for seizure prophylaxis. PT/OT signed off as patient is unable to participate. Continue keppra Start flexeryl 10/13 trial x 10 days Bowel regime. Stop lactinex. Clogged PEG tube. Failed attempt to flush feeding tube. Will consult IR. Continue feeding tube as per dietary recommendations when pattent PEG Chronic respiratory failure: Secondary to CVA. Status post tracheostomy. Continue pulmonary toilet and bronchodilators as needed. Continue trach care, suctioning. Levsin as needed. Atrial fibrillation: Continue rate control with Cardizem and metoprolol. Echocardiogram in November 2015 shows preserved ejection fraction. Coumadin discontinued secondary to bleeding. Continue aspirin and prophylactic heparin dose. History of non-Hodgkin's lymphoma: Status post brain biopsy on December 13 by neurosurgery. Pathology consistent with acute infarct without evidence of lymphoma. Oncology signed off. Diabetes mellitus: Hemoglobin A1c is 7. Continue Levemir. Monitor Accu-Cheks and cover with sliding scale insulin. Decubitus ulcer stage IV: Continue wound care, twice-daily dressing changes.. Wound care recommendations. Continue pressure relief measures including turning and positioning. Patient's family has declined a diverting colostomy. Wound culture growing Klebsiella. Antibiotics per infectious disease. Status post wide excision of sacral skin and biopsy of the cavity lining with debridement on 07/22/16. Gastric ulcer, reflux esophagitis: EGD on 07/30/16 showed gastric ulcers. Appreciate GI recommendations. Continue PPI. H&H stable. UTI pseudomonas aeruginosa treated with abx . Repeat Ucx 08/28/16 negative FEN: Continue Nepro tube feeds. Appreciate dietary recommendations. Continue free water flushes. Supplement potassium. Poor prognosis. DVT prophylaxis: SCDs. CM following for DC plan. Discussed with the patient, nurse, family at bedside. Problem Qualifiers (1) DM (diabetes mellitus): Qualified Code: E11.9 - Type 2 diabetes mellitus without complications Nahomy Tatum MD Oct 14, 2016 14:22
[2016-10-14] MEDS: SENNOSIDES SYRUP 8.8 MG/5 ML CUP PO SCH (16:19)
[2016-10-14] MEDS: PARoxetine HCL SUSP 20 MG/10 ML UDC PEG SCH (18:26)
[2016-10-14] MEDS: INSULIN DETEMIR 100 UNITS/ML VIAL SQ SCH (21:00)
[2016-10-15] VITALS (11 sets, daily range): BP systolic 105–126; BP diastolic 63–80; PULSE 74–89; RESP 19–22; TEMP 95.8–97.9; O2SAT 97–100
[2016-10-15] MEDS: FREE WATER TUBE SCH ×5 (04:00→20:00)
[2016-10-15] MEDS: AMOXICILLIN (TRIHYDRATE) 500 MG CAP PO SCH ×3 (06:53→20:31)
[2016-10-15] MEDS: HEPARIN SODIUM - SQ 10,000 UNITS/ML VIAL SQ SCH ×3 (06:53→20:32)
[2016-10-15] MEDS: ACETIC ACID 0.25% SOLN 1000 ML IRR BTL IRRIGATION SCH ×3 (06:54→20:33)
[2016-10-15] MEDS: INSULIN ASPART SUPPLEMENTAL SCALE SQ SCH (06:55)
[2016-10-15] MEDS: LACTULOSE SYRUP 20 GM/30 ML CUP PO SCH (08:40)
[2016-10-15] MEDS: ASPIRIN 325 MG TAB TUBE SCH (08:41)
[2016-10-15] MEDS: POTASSIUM CHLORIDE 25 MEQ EFFERVESCENT TAB TUBE SCH (08:41)
[2016-10-15] MEDS: DOCUSATE SODIUM 100 MG/10 ML UDC PO SCH ×2 (08:41→20:32)
[2016-10-15] MEDS: DILTIAZEM HCL 30 MG TAB PEG SCH ×4 (08:41→20:31)
[2016-10-15] MEDS: METOPROLOL TARTRATE 50 MG TAB PO SCH ×2 (08:41→20:31)
[2016-10-15] MEDS: levETIRAcetam 500 MG/5 ML UDC TUBE SCH ×2 (08:41→20:32)
[2016-10-15] MEDS: PANTOPRAZOLE SODIUM 40 MG VIAL IV PUSH SCH ×2 (08:42→20:55)
[2016-10-15] MEDS: KETOCONAZOLE 2% CREAM 15 GM TOPICAL SCH ×2 (09:00→20:33)
[2016-10-15] MEDS: SODIUM CHLORIDE 0.65% NASAL SPRAY 45 ML BTL NASAL SCH ×2 (09:00→20:33)
[2016-10-15] MEDS: ARTIFICIAL TEARS OPTH SOLN 15 ML BTL EACH EYE SCH ×2 (09:01→20:33)
[2016-10-15] MEDS: BACITRACIN TOP OINT 15 GM TUBE TOP SCH ×2 (09:01→20:33)
[2016-10-15] MEDS: NYSTATIN 100,000 U/GM PWD 15 GM BTL TOPICAL SCH ×2 (09:02→20:33)
--- NOTE | 2016-10-15 11:12 | HHI.PR ---
Subjective Remarks Patient appears in nad. Eyes opened, blinking to questions. Family at bedside. Had a BM yesterday, per family he is straining when he has BM. PEG tube patent, restart feedings. Flush feeding tube. Objective Vitals Vital Signs Date Time Temp Pulse Resp B/P Pulse Ox O2 Delivery O2 Flow Rate FiO2 10/15/16 09:37 80 10/15/16 08:52 98 T-piece 5.00 28 10/15/16 08:52 98 T-piece 5.00 28 10/15/16 08:10 96.9 83 22 126/76 97 10/15/16 06:30 97.9 84 19 117/78 100 10/15/16 00:46 97.7 89 19 117/72 97 10/14/16 22:47 97 T-piece 6.00 28 10/14/16 22:47 97 T-piece 6.00 28 10/14/16 21:31 97.5 92 19 137/77 98 10/14/16 20:00 T-Piece 6.00 28 10/14/16 15:00 97.0 84 20 109/70 98 10/14/16 12:15 97.8 82 20 110/78 95 I/O 10/14/16 10/14/16 10/14/16 10/15/16 10/15/16 10/15/16 07:00 15:00 23:00 07:00 15:00 23:00 Intake Total 2275 ml Output Total 650 ml 1300 ml 1000 ml Balance -650 ml -1300 ml 1275 ml Intake Oral 0 ml Tube Feeding 1975 ml Other 300 ml Output Urine Total 650 ml 1300 ml 1000 ml Stool Total 0 ml # Bowel Movements 0 1 3 0 Imaging Last Impressions Tube Change 09/09/16 1011 Signed Impressions: Service Date/Time: Friday, September 09, 2016 11:27 - CONCLUSION: Occluded jejunal port of the GJ tube. Uncomplicated gastrojejunostomy tube exchange as above. Jonel Jones Jr., MD Abdomen X-Ray 08/31/16 0000 Signed Impressions: Service Date/Time: Wednesday, August 31, 2016 16:36 - CONCLUSION: 1. No acute findings. Mild constipation. Durga Dotson MD Chest X-Ray 08/23/16 0000 Signed Impressions: Service Date/Time: Tuesday, August 23, 2016 16:06 - CONCLUSION: Minimal basilar right lung opacity likely representing atelectasis. Kwasi James MD Abdomen/Pelvis CT 04/12/16 0000 Signed Impressions: Service Date/Time: Tuesday, April 12, 2016 20:52 - CONCLUSION: 1. 6.4 cm necrotic mass or abscess in the soft tissues posteriorly just below the sacrum associated with some bony destructive change of the lower most sacrum and coccyx with inflammatory changes extending into the ischiorectal fossa and into the presacral retroperitoneum predominantly on the left side. There is associated fairly marked mural thickening of the anal verge and rectum. 2. There is gastrostomy and Arevalo catheter present. Stable abdominal aortic aneurysm. Durga Dotson MD Head Magnetic Resonance Angiography 03/05/16 0000 Signed Impressions: Service Date/Time: Saturday, March 05, 2016 09:26 - CONCLUSION: Persistent high-grade subtotal occlusive stenotic lesions in the distal right vertebral artery and proximal basilar artery with significant improvement in flow and recanalization following initial presentation of thrombosis. Stable interstitial circulation without significant stenosis. 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 There is decreasing restricted diffusion and increasing loss of volume characteristic of a subacute to chronic infarct. No evidence of acute infarct, acute hemorrhage mass or edema. Ernesto Kulkarni MD Head CT 01/16/16 0000 Signed Impressions: Service Date/Time: Saturday, January 16, 2016 10:51 - CONCLUSION: No extensive low density in the brainstem colin more prominent in the right the left extending into the right middle cerebellar peduncle consistent with brainstem infarct nonhemorrhagic acute Wellington West MD Neck Magnetic Resonance Angiography 12/22/15 1445 Signed Impressions: Service Date/Time: Tuesday, December 22, 2015 09:22 - CONCLUSION: Variant origin of the left vertebral artery from the aortic arch. No evidence of carotid stenosis. Glen Zamora MD Head/Brain Mag Res Venography 12/22/15 0000 Signed Impressions: Service Date/Time: Tuesday, December 22, 2015 09:22 - CONCLUSION: Normal MRV. Jonel Jones Jr., MD Objective Remarks Sacral ulcer with appropriate wound care GENERAL: This is a well-nourished, well-developed patient, eyes closed CARDIOVASCULAR: Sinus regular rate without murmurs, gallops, or rubs. RESPIRATORY: Tracheostomy Clear to auscultation. Breath sounds equal bilaterally. No wheezes, rales, or rhonchi. GASTROINTESTINAL: PEG tube Abdomen soft, non-tender, nondistended. Normal active bowel sounds MUSCULOSKELETAL: Extremities without clubbing, cyanosis, or edema. NEURO: Encephalopathic, sleeping Procedures 01/02/16 PEG placement 01/02/16 tracheostomy 07/22/2016 Wide excision of sacral skin wound, biopsy of the cavity lining and debridement. 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 Patient is nonverbal. Continue Keppra for seizure prophylaxis. PT/OT signed off as patient is unable to participate. Continue keppra Start flexeryl 10/13 trial x 10 days Bowel regime. Stop lactinex. Clogged PEG tube 10/14. Failed attempt to flush feeding tube. Will consult IR. Continue feeding tube as per dietary recommendations, patent PEG. Continue flushing feeding tube to mentain patent. Chronic respiratory failure: Secondary to CVA. Status post tracheostomy. Continue pulmonary toilet and bronchodilators as needed. Continue trach care, suctioning. Levsin as needed. Atrial fibrillation: Continue rate control with Cardizem and metoprolol. Echocardiogram in November 2015 shows preserved ejection fraction. Coumadin discontinued secondary to bleeding. Continue aspirin and prophylactic heparin dose. History of non-Hodgkin's lymphoma: Status post brain biopsy on December 13 by neurosurgery. Pathology consistent with acute infarct without evidence of lymphoma. Oncology signed off. Diabetes mellitus: Hemoglobin A1c is 7. Continue Levemir. Monitor Accu-Cheks and cover with sliding scale insulin. Decubitus ulcer stage IV: Continue wound care, twice-daily dressing changes.. Wound care recommendations. Continue pressure relief measures including turning and positioning. Patient's family has declined a diverting colostomy. Wound culture growing Klebsiella. Antibiotics per infectious disease. Status post wide excision of sacral skin and biopsy of the cavity lining with debridement on 07/22/16. Gastric ulcer, reflux esophagitis: EGD on 07/30/16 showed gastric ulcers. Appreciate GI recommendations. Continue PPI. H&H stable. UTI pseudomonas aeruginosa treated with abx . Repeat Ucx 08/28/16 negative FEN: Continue Nepro tube feeds. Appreciate dietary recommendations. Continue free water flushes. Supplement potassium. Poor prognosis. DVT prophylaxis: SCDs. CM following for DC plan. Discussed with the patient, nurse, family at bedside. Problem Qualifiers (1) DM (diabetes mellitus): Qualified Code: E11.9 - Type 2 diabetes mellitus without complications Nahomy Tatum MD Oct 15, 2016 11:12
[2016-10-15] MEDS: SENNOSIDES SYRUP 8.8 MG/5 ML CUP PO SCH (15:27)
[2016-10-15] MEDS: ACETAMINOPHEN/HYDROcodone 325 MG/5 MG TAB PO PRN (15:27)
--- NOTE | 2016-10-15 16:14 | HHI.PR ---
Subjective Remarks opens eyes on o2 , o2 SAT 96 on T PIECE Objective Vital Signs Date Time Temp Pulse Resp B/P Pulse Ox O2 Delivery O2 Flow Rate FiO2 10/15/16 14:09 109/68 10/15/16 12:41 97.5 79 22 121/80 97 10/15/16 09:37 80 10/15/16 08:52 98 T-piece 5.00 28 10/15/16 08:52 98 T-piece 5.00 28 10/15/16 08:10 96.9 83 22 126/76 97 10/15/16 06:30 97.9 84 19 117/78 100 10/15/16 00:46 97.7 89 19 117/72 97 10/14/16 22:47 97 T-piece 6.00 10/14/16 22:47 97 T-piece 6.00 10/14/16 21:31 97.5 92 19 137/77 98 10/14/16 20:00 T-Piece 6.00 28 Humidified I/O 10/14/16 10/14/16 10/14/16 10/15/16 10/15/16 10/15/16 07:00 15:00 23:00 07:00 15:00 23:00 Intake Total 2275 ml Output Total 650 ml 1300 ml 1000 ml Balance -650 ml -1300 ml 1275 ml Intake Oral 0 ml Tube Feeding 1975 ml Other 300 ml Output Urine Total 650 ml 1300 ml 1000 ml Stool Total 0 ml # Bowel Movements 0 1 3 0 Procedures 01/02/16 PEG placement 01/02/16 tracheostomy 07/22/2016 Wide excision of sacral skin wound, biopsy of the cavity lining and debridement. PEG tube replacement 07/29/16 Objective Remarks GENERAL: SKIN: Warm and dry. HEAD: Atraumatic. Normocephalic. EYES: Pupils equal and round. No scleral icterus. No injection or drainage. ENT: No nasal bleeding or discharge. Mucous membranes pink and moist. NECK: Trachea midline. No JVD. TRACH. [place] CARDIOVASCULAR: Regular rate and rhythm. RESPIRATORY: No accessory muscle use. Clear to auscultation. Breath sounds equal bilaterally. GASTROINTESTINAL: Abdomen soft, non-tender, nondistended. Hepatic and splenic margins not palpable. MUSCULOSKELETAL: Extremities without clubbing, cyanosis, or edema. No obvious deformities. NEUROLOGICAL: Awake and alert. No obvious cranial nerve deficits. Motor grossly within normal limits. Five out of 5 muscle strength in the arms and legs. Normal speech. PSYCHIATRIC: Appropriate mood and affect; insight and judgment normal. Assessment and Plan Assessment and Plan impression respiratory failure CVA S/P TRACHEOSTOMY PLAN O2 NEEDED PULM. TOFLORENCIAT Brandon Taylor MD Oct 15, 2016 16:14
[2016-10-15] MEDS: PARoxetine HCL SUSP 20 MG/10 ML UDC PEG SCH (17:45)
[2016-10-15] MEDS: INSULIN DETEMIR 100 UNITS/ML VIAL SQ SCH (20:33)
[2016-10-16] VITALS (11 sets, daily range): BP systolic 103–136; BP diastolic 63–75; PULSE 82–94; RESP 18–19; TEMP 97–98.7; O2SAT 96–99
[2016-10-16] MEDS: FREE WATER TUBE SCH ×6 (04:00→20:00)
[2016-10-16] MEDS: ACETIC ACID 0.25% SOLN 1000 ML IRR BTL IRRIGATION SCH ×3 (04:44→21:41)
[2016-10-16] MEDS: INSULIN ASPART SUPPLEMENTAL SCALE SQ SCH (06:42)
[2016-10-16] MEDS: AMOXICILLIN (TRIHYDRATE) 500 MG CAP PO SCH ×3 (06:44→21:40)
[2016-10-16] MEDS: HEPARIN SODIUM - SQ 10,000 UNITS/ML VIAL SQ SCH ×3 (06:44→21:40)
[2016-10-16] MEDS: BACITRACIN TOP OINT 15 GM TUBE TOP SCH ×2 (07:32→21:42)
[2016-10-16] MEDS: SODIUM CHLORIDE 0.65% NASAL SPRAY 45 ML BTL NASAL SCH ×2 (07:32→21:42)
[2016-10-16] MEDS: NYSTATIN 100,000 U/GM PWD 15 GM BTL TOPICAL SCH ×2 (07:32→21:42)
[2016-10-16] MEDS: KETOCONAZOLE 2% CREAM 15 GM TOPICAL SCH ×2 (07:32→21:00)
[2016-10-16] MEDS: ARTIFICIAL TEARS OPTH SOLN 15 ML BTL EACH EYE SCH ×2 (07:33→21:42)
[2016-10-16] MEDS: POTASSIUM CHLORIDE 25 MEQ EFFERVESCENT TAB TUBE SCH (07:34)
[2016-10-16] MEDS: LACTULOSE SYRUP 20 GM/30 ML CUP PO SCH (07:35)
[2016-10-16] MEDS: levETIRAcetam 500 MG/5 ML UDC TUBE SCH ×2 (07:35→21:40)
[2016-10-16] MEDS: DOCUSATE SODIUM 100 MG/10 ML UDC PO SCH ×2 (07:35→21:39)
[2016-10-16] MEDS: METOPROLOL TARTRATE 50 MG TAB PO SCH ×2 (07:36→21:40)
[2016-10-16] MEDS: ASPIRIN 325 MG TAB TUBE SCH (07:36)
[2016-10-16] MEDS: DILTIAZEM HCL 30 MG TAB PEG SCH ×4 (07:36→21:39)
[2016-10-16] MEDS: PANTOPRAZOLE SODIUM 40 MG VIAL IV PUSH SCH ×2 (07:36→21:40)
--- NOTE | 2016-10-16 10:06 | HHI.PR ---
Subjective Remarks Patient appears in NAD. Mother at bedside. Patient has a large BM yesterday, mother says he is straining when he has BM and also he is tachycardic at that time. VS are stable. PEG functioning, continue feedings. Objective Vitals Vital Signs Date Time Temp Pulse Resp B/P Pulse Ox O2 Delivery O2 Flow Rate FiO2 10/16/16 08:00 98.1 85 18 103/66 96 10/16/16 07:36 89 18 114/69 98 10/16/16 04:40 98.2 87 19 136/75 98 10/16/16 00:55 97.5 82 19 105/67 97 10/15/16 22:14 99 T-piece 6.00 10/15/16 21:30 100 T-Piece 6.00 10/15/16 20:24 96.8 76 19 105/63 98 10/15/16 20:00 77 10/15/16 16:00 95.8 74 22 110/65 99 10/15/16 14:09 109/68 10/15/16 12:41 97.5 79 22 121/80 97 I/O 10/15/16 10/15/16 10/15/16 10/16/16 10/16/16 10/16/16 07:00 15:00 23:00 07:00 15:00 23:00 Intake Total 2275 ml 200 ml 400 ml Output Total 1000 ml 750 ml 1000 ml 450 ml Balance 1275 ml -750 ml -800 ml -50 ml Intake Oral 0 ml Tube Feeding 1975 ml Other 300 ml 200 ml 400 ml Output Urine Total 1000 ml 750 ml 1000 ml 450 ml # Bowel Movements 0 4 Imaging Last Impressions Tube Change 09/09/16 1011 Signed Impressions: Service Date/Time: Friday, September 09, 2016 11:27 - CONCLUSION: Occluded jejunal port of the GJ tube. Uncomplicated gastrojejunostomy tube exchange as above. Jonel Jones Jr., MD Abdomen X-Ray 08/31/16 0000 Signed Impressions: Service Date/Time: Wednesday, August 31, 2016 16:36 - CONCLUSION: 1. No acute findings. Mild constipation. Durga Dotson MD Chest X-Ray 08/23/16 0000 Signed Impressions: Service Date/Time: Tuesday, August 23, 2016 16:06 - CONCLUSION: Minimal basilar right lung opacity likely representing atelectasis. Kwasi James MD Abdomen/Pelvis CT 04/12/16 0000 Signed Impressions: Service Date/Time: Tuesday, April 12, 2016 20:52 - CONCLUSION: 1. 6.4 cm necrotic mass or abscess in the soft tissues posteriorly just below the sacrum associated with some bony destructive change of the lower most sacrum and coccyx with inflammatory changes extending into the ischiorectal fossa and into the presacral retroperitoneum predominantly on the left side. There is associated fairly marked mural thickening of the anal verge and rectum. 2. There is gastrostomy and Arevalo catheter present. Stable abdominal aortic aneurysm. Durga Dotson MD Head Magnetic Resonance Angiography 03/05/16 0000 Signed Impressions: Service Date/Time: Saturday, March 05, 2016 09:26 - CONCLUSION: Persistent high-grade subtotal occlusive stenotic lesions in the distal right vertebral artery and proximal basilar artery with significant improvement in flow and recanalization following initial presentation of thrombosis. Stable interstitial circulation without significant stenosis. 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 There is decreasing restricted diffusion and increasing loss of volume characteristic of a subacute to chronic infarct. No evidence of acute infarct, acute hemorrhage mass or edema. Ernesto Kulkarni MD Head CT 01/16/16 0000 Signed Impressions: Service Date/Time: Saturday, January 16, 2016 10:51 - CONCLUSION: No extensive low density in the brainstem colin more prominent in the right the left extending into the right middle cerebellar peduncle consistent with brainstem infarct nonhemorrhagic acute Wellington West MD Neck Magnetic Resonance Angiography 12/22/15 1445 Signed Impressions: Service Date/Time: Tuesday, December 22, 2015 09:22 - CONCLUSION: Variant origin of the left vertebral artery from the aortic arch. No evidence of carotid stenosis. Glen Zamora MD Head/Brain Mag Res Venography 12/22/15 0000 Signed Impressions: Service Date/Time: Tuesday, December 22, 2015 09:22 - CONCLUSION: Normal MRV. Jonel Jones Jr., MD Objective Remarks Sacral ulcer with appropriate wound care GENERAL: This is a well-nourished, well-developed patient, eyes closed CARDIOVASCULAR: Sinus regular rate without murmurs, gallops, or rubs. RESPIRATORY: Tracheostomy Clear to auscultation. Breath sounds equal bilaterally. No wheezes, rales, or rhonchi. GASTROINTESTINAL: PEG tube Abdomen soft, non-tender, nondistended. Normal active bowel sounds MUSCULOSKELETAL: Extremities without clubbing, cyanosis, or edema. NEURO: Encephalopathic, sleeping Procedures 01/02/16 PEG placement 01/02/16 tracheostomy 07/22/2016 Wide excision of sacral skin wound, biopsy of the cavity lining and debridement. 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 Patient is nonverbal. Continue Keppra for seizure prophylaxis. PT/OT signed off as patient is unable to participate. Continue keppra Start flexeryl at night prn 10/13 trial x 10 days Bowel regime. Stop lactinex. Clogged PEG tube 10/14. Failed attempt to flush feeding tube. Will consult IR. Continue feeding tube as per dietary recommendations, patent PEG. Continue flushing feeding tube to mentain patent. Chronic respiratory failure: Secondary to CVA. Status post tracheostomy. Continue pulmonary toilet and bronchodilators as needed. Continue trach care, suctioning. Levsin as needed. Atrial fibrillation: Continue rate control with Cardizem and metoprolol. Echocardiogram in November 2015 shows preserved ejection fraction. Coumadin discontinued secondary to bleeding. Continue aspirin and prophylactic heparin dose. History of non-Hodgkin's lymphoma: Status post brain biopsy on December 13 by neurosurgery. Pathology consistent with acute infarct without evidence of lymphoma. Oncology signed off. Diabetes mellitus: Hemoglobin A1c is 7. Continue Levemir. Monitor Accu-Cheks and cover with sliding scale insulin. Decubitus ulcer stage IV: Continue wound care, twice-daily dressing changes.. Wound care recommendations. Continue pressure relief measures including turning and positioning. Patient's family has declined a diverting colostomy. Wound culture growing Klebsiella. Antibiotics per infectious disease. Status post wide excision of sacral skin and biopsy of the cavity lining with debridement on 07/22/16. Gastric ulcer, reflux esophagitis: EGD on 07/30/16 showed gastric ulcers. Appreciate GI recommendations. Continue PPI. H&H stable. UTI pseudomonas aeruginosa treated with abx . Repeat Ucx 08/28/16 negative FEN: Continue Nepro tube feeds. Appreciate dietary recommendations. Continue free water flushes. Supplement potassium. Poor prognosis. DVT prophylaxis: SCDs. CM following for DC plan. Discussed with the patient, nurse, family at bedside. Problem Qualifiers (1) DM (diabetes mellitus): Qualified Code: E11.9 - Type 2 diabetes mellitus without complications Nahomy Tatum MD Oct 16, 2016 10:06
[2016-10-16] MEDS: SENNOSIDES SYRUP 8.8 MG/5 ML CUP PO SCH (15:52)
--- NOTE | 2016-10-16 17:33 | HHI.PR ---
Subjective Remarks opens eyes on o2 , o2 SAT 96 on T PIECE Objective Vital Signs Date Time Temp Pulse Resp B/P Pulse Ox O2 Delivery O2 Flow Rate FiO2 10/16/16 16:00 98.5 87 18 106/70 99 10/16/16 13:53 107/66 10/16/16 12:00 98.7 84 18 115/63 98 10/16/16 11:46 96 T-piece 10/16/16 10:06 94 10/16/16 08:00 98.1 85 18 103/66 96 10/16/16 07:36 89 18 114/69 98 10/16/16 04:40 98.2 87 19 136/75 98 10/16/16 00:55 97.5 82 19 105/67 97 10/15/16 22:14 99 T-piece 6.00 10/15/16 21:30 100 T-Piece 6.00 10/15/16 20:24 96.8 76 19 105/63 98 10/15/16 20:00 77 I/O 10/15/16 10/15/16 10/15/16 10/16/16 10/16/16 10/16/16 07:00 15:00 23:00 07:00 15:00 23:00 Intake Total 2275 ml 200 ml 400 ml Output Total 1000 ml 750 ml 1000 ml 450 ml 650 ml Balance 1275 ml -750 ml -800 ml -50 ml -650 ml Intake Oral 0 ml Tube Feeding 1975 ml Other 300 ml 200 ml 400 ml Output Urine Total 1000 ml 750 ml 1000 ml 450 ml 650 ml # Bowel Movements 0 4 0 Procedures 01/02/16 PEG placement 01/02/16 tracheostomy 07/22/2016 Wide excision of sacral skin wound, biopsy of the cavity lining and debridement. PEG tube replacement 07/29/16 Objective Remarks GENERAL: SKIN: Warm and dry. HEAD: Atraumatic. Normocephalic. EYES: Pupils equal and round. No scleral icterus. No injection or drainage. ENT: No nasal bleeding or discharge. Mucous membranes pink and moist. NECK: Trachea midline. No JVD. TRACH. [place] CARDIOVASCULAR: Regular rate and rhythm. RESPIRATORY: No accessory muscle use. Clear to auscultation. Breath sounds equal bilaterally. GASTROINTESTINAL: Abdomen soft, non-tender, nondistended. Hepatic and splenic margins not palpable. MUSCULOSKELETAL: Extremities without clubbing, cyanosis, or edema. No obvious deformities. NEUROLOGICAL: Awake and alert. No obvious cranial nerve deficits. Motor grossly within normal limits. Five out of 5 muscle strength in the arms and legs. Normal speech. PSYCHIATRIC: Appropriate mood and affect; insight and judgment normal. Assessment and Plan Assessment and Plan impression respiratory failure CVA S/P TRACHEOSTOMY PLAN O2 NEEDED PULM. TOILET Brandon Taylor MD Oct 16, 2016 17:33
[2016-10-16] MEDS: PARoxetine HCL SUSP 20 MG/10 ML UDC PEG SCH (17:59)
[2016-10-16] MEDS: INSULIN DETEMIR 100 UNITS/ML VIAL SQ SCH (21:40)
[2016-10-17] VITALS (10 sets, daily range): BP systolic 101–129; BP diastolic 57–75; PULSE 73–86; RESP 18–19; TEMP 95.7–98.5; O2SAT 96–100
[2016-10-17] MEDS: FREE WATER TUBE SCH ×6 (04:00→21:06)
[2016-10-17] MEDS: ACETIC ACID 0.25% SOLN 1000 ML IRR BTL IRRIGATION SCH ×3 (06:00→21:08)
[2016-10-17] MEDS: AMOXICILLIN (TRIHYDRATE) 500 MG CAP PO SCH ×3 (06:36→20:49)
[2016-10-17] MEDS: HEPARIN SODIUM - SQ 10,000 UNITS/ML VIAL SQ SCH ×3 (06:36→20:53)
[2016-10-17] MEDS: INSULIN ASPART SUPPLEMENTAL SCALE SQ SCH (06:38)
[2016-10-17] MEDS: BACITRACIN TOP OINT 15 GM TUBE TOP SCH ×2 (09:00→20:47)
[2016-10-17] MEDS: SODIUM CHLORIDE 0.65% NASAL SPRAY 45 ML BTL NASAL SCH ×2 (09:00→20:46)
[2016-10-17] MEDS: KETOCONAZOLE 2% CREAM 15 GM TOPICAL SCH ×2 (09:00→21:07)
[2016-10-17] MEDS: NYSTATIN 100,000 U/GM PWD 15 GM BTL TOPICAL SCH ×2 (09:00→21:07)
[2016-10-17] MEDS: ARTIFICIAL TEARS OPTH SOLN 15 ML BTL EACH EYE SCH ×2 (09:00→20:46)
[2016-10-17] MEDS: METOPROLOL TARTRATE 50 MG TAB PO SCH ×2 (09:22→20:49)
[2016-10-17] MEDS: ASPIRIN 325 MG TAB TUBE SCH (09:22)
[2016-10-17] MEDS: POTASSIUM CHLORIDE 25 MEQ EFFERVESCENT TAB TUBE SCH (09:22)
[2016-10-17] MEDS: LACTULOSE SYRUP 20 GM/30 ML CUP PO SCH (09:22)
[2016-10-17] MEDS: levETIRAcetam 500 MG/5 ML UDC TUBE SCH ×2 (09:22→20:52)
[2016-10-17] MEDS: DOCUSATE SODIUM 100 MG/10 ML UDC PO SCH ×2 (09:22→20:53)
[2016-10-17] MEDS: DILTIAZEM HCL 30 MG TAB PEG SCH ×4 (09:22→20:52)
--- NOTE | 2016-10-17 10:27 | HHI.PR ---
Subjective Remarks Patient in bed, appears in nad. Awake. Family requests meeting to talk with reyna cousin who is a doctor in [place], and family and case management to discuss plan of care and discharge. Meeting 45 minutes involving patient care, spoke with family and case management Family requesting mobile chair and wants to take the patient out of the hospital for a ride. However they are not prepared to take care of him at home. VSS. Objective Vitals Vital Signs Date Time Temp Pulse Resp B/P Pulse Ox O2 Delivery O2 Flow Rate FiO2 10/17/16 10:09 96 T-piece 28 10/17/16 08:00 98.5 84 19 117/74 98 10/17/16 04:00 95.7 74 18 109/70 99 10/17/16 02:20 100 T-piece 5.00 10/17/16 00:00 96.9 73 18 110/66 99 10/16/16 21:15 98 T-Piece 6.00 28 10/16/16 20:00 82 10/16/16 20:00 97.0 88 18 114/70 99 10/16/16 19:45 99 T-piece 6.00 28 10/16/16 16:00 98.5 87 18 106/70 99 10/16/16 13:53 107/66 10/16/16 12:00 98.7 84 18 115/63 98 10/16/16 11:46 96 T-piece 28 I/O 10/16/16 10/16/16 10/16/16 10/17/16 10/17/16 10/17/16 07:00 15:00 23:00 07:00 15:00 23:00 Intake Total 400 ml 1016 ml 400 ml Output Total 450 ml 650 ml 700 ml 750 ml Balance -50 ml -650 ml 316 ml 400 ml -750 ml Tube Feeding 216 ml Other 400 ml 800 ml 400 ml Output Urine Total 450 ml 650 ml 700 ml 750 ml # Bowel Movements 0 0 1 Imaging Last Impressions Tube Change 09/09/16 1011 Signed Impressions: Service Date/Time: Friday, September 09, 2016 11:27 - CONCLUSION: Occluded jejunal port of the GJ tube. Uncomplicated gastrojejunostomy tube exchange as above. Jonel Jones Jr., MD Abdomen X-Ray 08/31/16 0000 Signed Impressions: Service Date/Time: Wednesday, August 31, 2016 16:36 - CONCLUSION: 1. No acute findings. Mild constipation. Durga Dotson MD Chest X-Ray 08/23/16 0000 Signed Impressions: Service Date/Time: Tuesday, August 23, 2016 16:06 - CONCLUSION: Minimal basilar right lung opacity likely representing atelectasis. Kwasi James MD Abdomen/Pelvis CT 04/12/16 0000 Signed Impressions: Service Date/Time: Tuesday, April 12, 2016 20:52 - CONCLUSION: 1. 6.4 cm necrotic mass or abscess in the soft tissues posteriorly just below the sacrum associated with some bony destructive change of the lower most sacrum and coccyx with inflammatory changes extending into the ischiorectal fossa and into the presacral retroperitoneum predominantly on the left side. There is associated fairly marked mural thickening of the anal verge and rectum. 2. There is gastrostomy and Arevalo catheter present. Stable abdominal aortic aneurysm. Durga Dotson MD Head Magnetic Resonance Angiography 03/05/16 0000 Signed Impressions: Service Date/Time: Saturday, March 05, 2016 09:26 - CONCLUSION: Persistent high-grade subtotal occlusive stenotic lesions in the distal right vertebral artery and proximal basilar artery with significant improvement in flow and recanalization following initial presentation of thrombosis. Stable interstitial circulation without significant stenosis. 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 There is decreasing restricted diffusion and increasing loss of volume characteristic of a subacute to chronic infarct. No evidence of acute infarct, acute hemorrhage mass or edema. Ernesto Kulkarni MD Head CT 01/16/16 0000 Signed Impressions: Service Date/Time: Saturday, January 16, 2016 10:51 - CONCLUSION: No extensive low density in the brainstem colin more prominent in the right the left extending into the right middle cerebellar peduncle consistent with brainstem infarct nonhemorrhagic acute Wellington West MD Neck Magnetic Resonance Angiography 12/22/15 1835 Signed Impressions: Service Date/Time: Tuesday, December 22, 2015 09:22 - CONCLUSION: Variant origin of the left vertebral artery from the aortic arch. No evidence of carotid stenosis. Glen Zamora MD Head/Brain Mag Res Venography 12/22/15 0000 Signed Impressions: Service Date/Time: Tuesday, December 22, 2015 09:22 - CONCLUSION: Normal MRV. Jonel Jones Jr., MD Objective Remarks Sacral ulcer with appropriate wound care GENERAL: This is a well-nourished, well-developed patient, eyes closed CARDIOVASCULAR: Sinus regular rate without murmurs, gallops, or rubs. RESPIRATORY: Tracheostomy Clear to auscultation. Breath sounds equal bilaterally. No wheezes, rales, or rhonchi. GASTROINTESTINAL: PEG tube Abdomen soft, non-tender, nondistended. Normal active bowel sounds MUSCULOSKELETAL: Extremities without clubbing, cyanosis, or edema. NEURO: Encephalopathic, sleeping Procedures 01/02/16 PEG placement 01/02/16 tracheostomy 07/22/2016 Wide excision of sacral skin wound, biopsy of the cavity lining and debridement. 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 Patient is nonverbal. Continue Keppra for seizure prophylaxis. PT/OT signed off as patient is unable to participate. Continue keppra Start flexeryl at night prn 10/13 trial x 10 days Bowel regime. Stop lactinex. Clogged PEG tube 10/14. Failed attempt to flush feeding tube. Will consult IR. Continue feeding tube as per dietary recommendations, patent PEG. Continue flushing feeding tube to mentain patent. Chronic respiratory failure: Secondary to CVA. Status post tracheostomy. Continue pulmonary toilet and bronchodilators as needed. Continue trach care, suctioning. Levsin as needed. Atrial fibrillation: Continue rate control with Cardizem and metoprolol. Echocardiogram in November 2015 shows preserved ejection fraction. Coumadin discontinued secondary to bleeding. Continue aspirin and prophylactic heparin dose. History of non-Hodgkin's lymphoma: Status post brain biopsy on December 13 by neurosurgery. Pathology consistent with acute infarct without evidence of lymphoma. Oncology signed off. Diabetes mellitus: Hemoglobin A1c is 7. Continue Levemir. Monitor Accu-Cheks and cover with sliding scale insulin. Decubitus ulcer stage IV: Continue wound care, twice-daily dressing changes.. Wound care recommendations. Continue pressure relief measures including turning and positioning. Patient's family has declined a diverting colostomy. Wound culture growing Klebsiella. Antibiotics per infectious disease. Status post wide excision of sacral skin and biopsy of the cavity lining with debridement on 07/22/16. Gastric ulcer, reflux esophagitis: EGD on 07/30/16 showed gastric ulcers. Appreciate GI recommendations. Continue PPI. H&H stable. UTI pseudomonas aeruginosa treated with abx . Repeat Ucx 08/28/16 negative FEN: Continue Nepro tube feeds. Appreciate dietary recommendations. Continue free water flushes. Supplement potassium. Poor prognosis. DVT prophylaxis: SCDs. CM following for DC plan. Discussed with the patient, nurse, family at bedside, case management. Problem Qualifiers (1) DM (diabetes mellitus): Qualified Code: E11.9 - Type 2 diabetes mellitus without complications Nahomy Tatum MD Oct 17, 2016 10:27
[2016-10-17] MEDS: PANTOPRAZOLE SODIUM 40 MG VIAL IV PUSH SCH ×2 (10:52→21:31)
--- NOTE | 2016-10-17 16:43 | HHI.PR ---
Subjective Remarks opens eyes on o2 , o2 SAT 96 on T PIECE Objective Vital Signs Date Time Temp Pulse Resp B/P Pulse Ox O2 Delivery O2 Flow Rate FiO2 10/17/16 12:00 96.4 75 19 108/64 100 10/17/16 10:09 96 T-piece 28 10/17/16 08:00 98.5 84 19 117/74 98 10/17/16 07:00 86 10/17/16 07:00 98 T-Piece 6.00 10/17/16 04:00 95.7 74 18 109/70 99 10/17/16 02:20 100 T-piece 5.00 28 10/17/16 00:00 96.9 73 18 110/66 99 10/16/16 21:15 98 T-Piece 6.00 10/16/16 20:00 82 10/16/16 20:00 97.0 88 18 114/70 99 10/16/16 19:45 99 T-piece 6.00 28 I/O 10/16/16 10/16/16 10/16/16 10/17/16 10/17/16 10/17/16 07:00 15:00 23:00 07:00 15:00 23:00 Intake Total 400 ml 1016 ml 400 ml Output Total 450 ml 650 ml 700 ml 750 ml Balance -50 ml -650 ml 316 ml 400 ml -750 ml Tube Feeding 216 ml Other 400 ml 800 ml 400 ml Output Urine Total 450 ml 650 ml 700 ml 750 ml # Bowel Movements 0 0 1 Procedures 01/02/16 PEG placement 01/02/16 tracheostomy 07/22/2016 Wide excision of sacral skin wound, biopsy of the cavity lining and debridement. PEG tube replacement 07/29/16 Objective Remarks GENERAL: SKIN: Warm and dry. HEAD: Atraumatic. Normocephalic. EYES: Pupils equal and round. No scleral icterus. No injection or drainage. ENT: No nasal bleeding or discharge. Mucous membranes pink and moist. NECK: Trachea midline. No JVD. TRACH. [place] CARDIOVASCULAR: Regular rate and rhythm. RESPIRATORY: No accessory muscle use. Clear to auscultation. Breath sounds equal bilaterally. GASTROINTESTINAL: Abdomen soft, non-tender, nondistended. Hepatic and splenic margins not palpable. MUSCULOSKELETAL: Extremities without clubbing, cyanosis, or edema. No obvious deformities. NEUROLOGICAL: Awake and alert. No obvious cranial nerve deficits. Motor grossly within normal limits. Five out of 5 muscle strength in the arms and legs. Normal speech. PSYCHIATRIC: Appropriate mood and affect; insight and judgment normal. Assessment and Plan Assessment and Plan impression respiratory failure CVA S/P TRACHEOSTOMY PLAN O2 NEEDED PULM. TOBrandon Willard MD Oct 17, 2016 16:43
[2016-10-17] MEDS: SENNOSIDES SYRUP 8.8 MG/5 ML CUP PO SCH (16:53)
[2016-10-17] MEDS: PARoxetine HCL SUSP 20 MG/10 ML UDC PEG SCH (18:50)
[2016-10-17] MEDS: INSULIN DETEMIR 100 UNITS/ML VIAL SQ SCH (21:06)
[2016-10-18] VITALS (9 sets, daily range): BP systolic 99–120; BP diastolic 61–75; PULSE 75–97; RESP 16–20; TEMP 96.5–100.7; O2SAT 92–100
[2016-10-18] MEDS: ACETIC ACID 0.25% SOLN 1000 ML IRR BTL IRRIGATION SCH ×3 (05:47→21:51)
[2016-10-18] MEDS: AMOXICILLIN (TRIHYDRATE) 500 MG CAP PO SCH ×3 (05:47→21:29)
[2016-10-18] MEDS: FREE WATER TUBE SCH ×6 (05:47→21:50)
[2016-10-18] MEDS: HEPARIN SODIUM - SQ 10,000 UNITS/ML VIAL SQ SCH ×3 (05:48→21:29)
[2016-10-18] MEDS: INSULIN ASPART SUPPLEMENTAL SCALE SQ SCH (06:00)
[2016-10-18] MEDS: KETOCONAZOLE 2% CREAM 15 GM TOPICAL SCH ×2 (09:00→21:50)
[2016-10-18] MEDS: NYSTATIN 100,000 U/GM PWD 15 GM BTL TOPICAL SCH ×2 (09:00→21:39)
[2016-10-18] MEDS: SODIUM CHLORIDE 0.65% NASAL SPRAY 45 ML BTL NASAL SCH ×2 (09:00→21:50)
[2016-10-18] MEDS: BACITRACIN TOP OINT 15 GM TUBE TOP SCH ×2 (09:00→21:50)
[2016-10-18] MEDS: ARTIFICIAL TEARS OPTH SOLN 15 ML BTL EACH EYE SCH ×2 (09:00→21:39)
[2016-10-18] MEDS: POTASSIUM CHLORIDE 25 MEQ EFFERVESCENT TAB TUBE SCH (09:07)
[2016-10-18] MEDS: ASPIRIN 325 MG TAB TUBE SCH (09:07)
[2016-10-18] MEDS: DILTIAZEM HCL 30 MG TAB PEG SCH ×4 (09:08→21:30)
[2016-10-18] MEDS: levETIRAcetam 500 MG/5 ML UDC TUBE SCH ×2 (09:08→21:27)
[2016-10-18] MEDS: ACETAMINOPHEN/HYDROcodone 325 MG/5 MG TAB PO PRN (09:08)
[2016-10-18] MEDS: DOCUSATE SODIUM 100 MG/10 ML UDC PO SCH ×2 (09:08→21:30)
[2016-10-18] MEDS: METOPROLOL TARTRATE 50 MG TAB PO SCH ×2 (09:08→21:29)
[2016-10-18] MEDS: LACTULOSE SYRUP 20 GM/30 ML CUP PO SCH (09:08)
[2016-10-18] MEDS: PANTOPRAZOLE SODIUM 40 MG VIAL IV PUSH SCH ×2 (10:15→21:28)
--- NOTE | 2016-10-18 13:33 | HHI.PR ---
Subjective Remarks Patient alert and awake.Per family at bedside, no events overnight. Needs frequent suctioning. VSS. Objective Vitals Vital Signs Date Time Temp Pulse Resp B/P Pulse Ox O2 Delivery O2 Flow Rate FiO2 10/18/16 12:00 98.4 89 16 103/66 92 10/18/16 10:25 97 T-piece 28 10/18/16 08:00 97.9 94 18 119/66 100 10/18/16 07:30 93 10/18/16 07:00 98 T-Piece 6.00 10/18/16 06:01 99.7 89 20 120/75 100 10/18/16 00:00 97.3 75 18 107/62 98 10/17/16 21:00 100 T-Piece 6.00 10/17/16 20:00 97.1 86 18 129/75 96 10/17/16 19:35 100 T-piece 10/17/16 16:00 97.1 77 18 101/57 99 I/O 10/17/16 10/17/16 10/17/16 10/18/16 10/18/16 10/18/16 07:00 15:00 23:00 07:00 15:00 23:00 Intake Total 400 ml 292 ml Output Total 1550 ml 500 ml Balance 400 ml -1550 ml -500 ml 292 ml Tube Feeding 292 ml Other 400 ml Output Urine Total 1550 ml 500 ml # Bowel Movements 1 1 Imaging Last Impressions Tube Change 09/09/16 1011 Signed Impressions: Service Date/Time: Friday, September 09, 2016 11:27 - CONCLUSION: Occluded jejunal port of the GJ tube. Uncomplicated gastrojejunostomy tube exchange as above. Jonel Jones Jr., MD Abdomen X-Ray 08/31/16 0000 Signed Impressions: Service Date/Time: Wednesday, August 31, 2016 16:36 - CONCLUSION: 1. No acute findings. Mild constipation. Durga Dotson MD Chest X-Ray 08/23/16 0000 Signed Impressions: Service Date/Time: Tuesday, August 23, 2016 16:06 - CONCLUSION: Minimal basilar right lung opacity likely representing atelectasis. Kwasi James MD Abdomen/Pelvis CT 04/12/16 0000 Signed Impressions: Service Date/Time: Tuesday, April 12, 2016 20:52 - CONCLUSION: 1. 6.4 cm necrotic mass or abscess in the soft tissues posteriorly just below the sacrum associated with some bony destructive change of the lower most sacrum and coccyx with inflammatory changes extending into the ischiorectal fossa and into the presacral retroperitoneum predominantly on the left side. There is associated fairly marked mural thickening of the anal verge and rectum. 2. There is gastrostomy and Arevalo catheter present. Stable abdominal aortic aneurysm. Durga Dotson MD Head Magnetic Resonance Angiography 03/05/16 0000 Signed Impressions: Service Date/Time: Saturday, March 05, 2016 09:26 - CONCLUSION: Persistent high-grade subtotal occlusive stenotic lesions in the distal right vertebral artery and proximal basilar artery with significant improvement in flow and recanalization following initial presentation of thrombosis. Stable interstitial circulation without significant stenosis. 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 There is decreasing restricted diffusion and increasing loss of volume characteristic of a subacute to chronic infarct. No evidence of acute infarct, acute hemorrhage mass or edema. Ernesto Kulkarni MD Head CT 01/16/16 0000 Signed Impressions: Service Date/Time: Saturday, January 16, 2016 10:51 - CONCLUSION: No extensive low density in the brainstem colin more prominent in the right the left extending into the right middle cerebellar peduncle consistent with brainstem infarct nonhemorrhagic acute Wellington West MD Neck Magnetic Resonance Angiography 12/22/15 1445 Signed Impressions: Service Date/Time: Tuesday, December 22, 2015 09:22 - CONCLUSION: Variant origin of the left vertebral artery from the aortic arch. No evidence of carotid stenosis. Glen Zamora MD Head/Brain Mag Res Venography 12/22/15 0000 Signed Impressions: Service Date/Time: Tuesday, December 22, 2015 09:22 - CONCLUSION: Normal MRV. Jonel Jones Jr., MD Objective Remarks Sacral ulcer with appropriate wound care GENERAL: This is a well-nourished, well-developed patient, eyes closed CARDIOVASCULAR: Sinus regular rate without murmurs, gallops, or rubs. RESPIRATORY: Tracheostomy Clear to auscultation. Breath sounds equal bilaterally. No wheezes, rales, or rhonchi. GASTROINTESTINAL: PEG tube Abdomen soft, non-tender, nondistended. Normal active bowel sounds MUSCULOSKELETAL: Extremities without clubbing, cyanosis, or edema. NEURO: Encephalopathic, sleeping Procedures 01/02/16 PEG placement 01/02/16 tracheostomy 07/22/2016 Wide excision of sacral skin wound, biopsy of the cavity lining and debridement. 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 Patient is nonverbal. Continue Keppra for seizure prophylaxis. PT/OT signed off as patient is unable to participate. Continue keppra Start flexeryl at night prn 10/13 trial x 10 days Bowel regime. Stop lactinex. Clogged PEG tube 10/14. Failed attempt to flush feeding tube. Will consult IR. Continue feeding tube as per dietary recommendations, patent PEG. Continue flushing feeding tube to mentain patent. Chronic respiratory failure: Secondary to CVA. Status post tracheostomy. Continue pulmonary toilet and bronchodilators as needed. Continue trach care, suctioning. Levsin as needed. Atrial fibrillation: Continue rate control with Cardizem and metoprolol. Echocardiogram in November 2015 shows preserved ejection fraction. Coumadin discontinued secondary to bleeding. Continue aspirin and prophylactic heparin dose. History of non-Hodgkin's lymphoma: Status post brain biopsy on December 13 by neurosurgery. Pathology consistent with acute infarct without evidence of lymphoma. Oncology signed off. Diabetes mellitus: Hemoglobin A1c is 7. Continue Levemir. Monitor Accu-Cheks and cover with sliding scale insulin. Decubitus ulcer stage IV: Continue wound care, twice-daily dressing changes.. Wound care recommendations. Continue pressure relief measures including turning and positioning. Patient's family has declined a diverting colostomy. Wound culture growing Klebsiella. Antibiotics per infectious disease. Status post wide excision of sacral skin and biopsy of the cavity lining with debridement on 07/22/16. Gastric ulcer, reflux esophagitis: EGD on 07/30/16 showed gastric ulcers. Appreciate GI recommendations. Continue PPI. H&H stable. UTI pseudomonas aeruginosa treated with abx . Repeat Ucx 08/28/16 negative FEN: Continue Nepro tube feeds. Appreciate dietary recommendations. Continue free water flushes. Supplement potassium. Poor prognosis. DVT prophylaxis: SCDs. CM following for DC plan. Discussed with the patient, nurse, family at bedside, case management. Problem Qualifiers (1) DM (diabetes mellitus): Qualified Code: E11.9 - Type 2 diabetes mellitus without complications Nahomy Tatum MD Oct 18, 2016 13:33
[2016-10-18] MEDS: RESP: LEVALBUTEROL HYDROCHLORIDE 0.63 MG/3 ML NEB (PRN) NEB (15:44)
[2016-10-18] MEDS: SENNOSIDES SYRUP 8.8 MG/5 ML CUP PO SCH (16:20)
[2016-10-18] MEDS: ACETAMINOPHEN 650 MG/20.3 ML UDC TUBE PRN (16:36)
[2016-10-18] MEDS: PARoxetine HCL SUSP 20 MG/10 ML UDC PEG SCH (18:41)
--- NOTE | 2016-10-18 19:06 | HHI.PR ---
Subjective Remarks opens eyes on o2 , o2 SAT 96 on T PIECE low grade temp Objective Vital Signs Date Time Temp Pulse Resp B/P Pulse Ox O2 Delivery O2 Flow Rate FiO2 10/18/16 16:00 100.7 97 16 99/61 96 10/18/16 15:49 95 T-piece 6.00 28 10/18/16 12:00 98.4 89 16 103/66 92 10/18/16 10:25 97 T-piece 28 10/18/16 08:00 97.9 94 18 119/66 100 10/18/16 07:30 93 10/18/16 07:00 98 T-Piece 6.00 28 10/18/16 06:01 99.7 89 20 120/75 100 10/18/16 00:00 97.3 75 18 107/62 98 10/17/16 21:00 100 T-Piece 6.00 28 10/17/16 20:00 97.1 86 18 129/75 96 10/17/16 19:35 100 T-piece 28 I/O 10/17/16 10/17/16 10/17/16 10/18/16 10/18/16 10/18/16 07:00 15:00 23:00 07:00 15:00 23:00 Intake Total 400 ml 292 ml Output Total 1550 ml 500 ml 700 ml Balance 400 ml -1550 ml -500 ml 292 ml -700 ml Tube Feeding 292 ml Other 400 ml Output Urine Total 1550 ml 500 ml 700 ml # Bowel Movements 1 1 Procedures 01/02/16 PEG placement 01/02/16 tracheostomy 07/22/2016 Wide excision of sacral skin wound, biopsy of the cavity lining and debridement. PEG tube replacement 07/29/16 Objective Remarks GENERAL: SKIN: Warm and dry. HEAD: Atraumatic. Normocephalic. EYES: Pupils equal and round. No scleral icterus. No injection or drainage. ENT: No nasal bleeding or discharge. Mucous membranes pink and moist. NECK: Trachea midline. No JVD. TRACH. [place] CARDIOVASCULAR: Regular rate and rhythm. RESPIRATORY: No accessory muscle use. Clear to auscultation. Breath sounds equal bilaterally. GASTROINTESTINAL: Abdomen soft, non-tender, nondistended. Hepatic and splenic margins not palpable. MUSCULOSKELETAL: Extremities without clubbing, cyanosis, or edema. No obvious deformities. NEUROLOGICAL: Awake and alert. No obvious cranial nerve deficits. Motor grossly within normal limits. Five out of 5 muscle strength in the arms and legs. Normal speech. PSYCHIATRIC: Appropriate mood and affect; insight and judgment normal. Assessment and Plan Assessment and Plan impression respiratory failure CVA S/P TRACHEOSTOMY PLAN O2 NEEDED PULM. TOILET check Cxray Brandon Taylor MD Oct 18, 2016 19:06
--- NOTE | 2016-10-18 19:32 | RADRPT ---
EXAM DATE/TIME: 10/18/2016 19:17 [facility] COMPARISON: CHEST SINGLE AP, August 23, 2016, 16:06. INDICATIONS : Evaluate for pneumonia. MEDICAL HISTORY : Hypertension. Diabetes mellitus type II. SURGICAL HISTORY : None. ENCOUNTER: Initial ACUITY: 1 day PAIN SCORE: 0/10 LOCATION: Bilateral chest FINDINGS: A tracheostomy tube is noted with its tip 4 cm above the geno. The heart is stable. The lungs are unchanged compared to the previous examination. Minimal right perihilar streakiness is note. There is elevation of the right hemidiaphragm. CONCLUSION: 1. Minimal right perihilar streakiness consistent with probable atelectasis. 2. Elevation of the right hemidiaphragm. 3. Tracheostomy tube in good position above the geno. Eduardo Valenzuela MD on October 18, 2016 at 19:29 Board Certified Radiologist. This report was verified electronically.
[2016-10-18] MEDS: INSULIN DETEMIR 100 UNITS/ML VIAL SQ SCH (21:29)
[2016-10-19] VITALS (9 sets, daily range): BP systolic 107–128; BP diastolic 61–68; PULSE 83–96; RESP 18–22; TEMP 97.1–99.5; O2SAT 95–99
[2016-10-19] MEDS: FREE WATER TUBE SCH ×7 (00:55→23:20)
[2016-10-19] MEDS: ACETIC ACID 0.25% SOLN 1000 ML IRR BTL IRRIGATION SCH ×3 (05:46→23:21)
[2016-10-19] MEDS: HEPARIN SODIUM - SQ 10,000 UNITS/ML VIAL SQ SCH ×3 (05:46→23:28)
[2016-10-19] MEDS: AMOXICILLIN (TRIHYDRATE) 500 MG CAP PO SCH ×3 (05:46→23:28)
[2016-10-19] MEDS: INSULIN ASPART SUPPLEMENTAL SCALE SQ SCH (06:00)
--- NOTE | 2016-10-19 08:45 | HHI.PR ---
Subjective Remarks Appears in nad. Sleepy today. He was noted with temp of 100.7 yesterday. CXR shows atelectasis. No n/v/d/c. Objective Vitals Vital Signs Date Time Temp Pulse Resp B/P Pulse Ox O2 Delivery O2 Flow Rate FiO2 10/19/16 08:22 99.3 91 22 119/63 96 10/19/16 08:00 97 6.00 28 10/19/16 07:55 96 10/19/16 04:00 97.6 91 18 128/61 97 10/19/16 00:00 97.1 83 18 107/67 97 10/18/16 20:00 96.5 87 18 108/68 97 10/18/16 16:00 100.7 97 16 99/61 96 10/18/16 15:49 95 T-piece 6.00 28 10/18/16 12:00 98.4 89 16 103/66 92 10/18/16 10:25 97 T-piece 28 I/O 10/18/16 10/18/16 10/18/16 10/19/16 10/19/16 10/19/16 07:00 15:00 23:00 07:00 15:00 23:00 Intake Total 292 ml Output Total 700 ml 1800 ml Balance 292 ml -700 ml -1800 ml Tube Feeding 292 ml Output Urine Total 700 ml 1800 ml Imaging Last Impressions Chest X-Ray 10/18/16 0000 Signed Impressions: Service Date/Time: Tuesday, October 18, 2016 19:17 - CONCLUSION: 1. Minimal right perihilar streakiness consistent with probable atelectasis. 2. Elevation of the right hemidiaphragm. 3. Tracheostomy tube in good position above the geno. Eduardo Valenzuela MD Tube Change 09/09/16 1011 Signed Impressions: Service Date/Time: Friday, September 09, 2016 11:27 - CONCLUSION: Occluded jejunal port of the GJ tube. Uncomplicated gastrojejunostomy tube exchange as above. Jonel Jones Jr., MD Abdomen X-Ray 08/31/16 0000 Signed Impressions: Service Date/Time: Wednesday, August 31, 2016 16:36 - CONCLUSION: 1. No acute findings. Mild constipation. Durga Dotson MD Abdomen/Pelvis CT 04/12/16 0000 Signed Impressions: Service Date/Time: Tuesday, April 12, 2016 20:52 - CONCLUSION: 1. 6.4 cm necrotic mass or abscess in the soft tissues posteriorly just below the sacrum associated with some bony destructive change of the lower most sacrum and coccyx with inflammatory changes extending into the ischiorectal fossa and into the presacral retroperitoneum predominantly on the left side. There is associated fairly marked mural thickening of the anal verge and rectum. 2. There is gastrostomy and Arevalo catheter present. Stable abdominal aortic aneurysm. Durga Dotson MD Head Magnetic Resonance Angiography 03/05/16 0000 Signed Impressions: Service Date/Time: Saturday, March 05, 2016 09:26 - CONCLUSION: Persistent high-grade subtotal occlusive stenotic lesions in the distal right vertebral artery and proximal basilar artery with significant improvement in flow and recanalization following initial presentation of thrombosis. Stable interstitial circulation without significant stenosis. 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 There is decreasing restricted diffusion and increasing loss of volume characteristic of a subacute to chronic infarct. No evidence of acute infarct, acute hemorrhage mass or edema. Ernesto Kulkarni MD Head CT 01/16/16 0000 Signed Impressions: Service Date/Time: Saturday, January 16, 2016 10:51 - CONCLUSION: No extensive low density in the brainstem colin more prominent in the right the left extending into the right middle cerebellar peduncle consistent with brainstem infarct nonhemorrhagic acute Wellington West MD Neck Magnetic Resonance Angiography 12/22/15 1445 Signed Impressions: Service Date/Time: Tuesday, December 22, 2015 09:22 - CONCLUSION: Variant origin of the left vertebral artery from the aortic arch. No evidence of carotid stenosis. Glen Zamora MD Head/Brain Mag Res Venography 12/22/15 0000 Signed Impressions: Service Date/Time: Tuesday, December 22, 2015 09:22 - CONCLUSION: Normal MRV. Jonel Jones Jr., MD Objective Remarks Sacral ulcer with appropriate wound care GENERAL: This is a well-nourished, well-developed patient, eyes closed CARDIOVASCULAR: Sinus regular rate without murmurs, gallops, or rubs. RESPIRATORY: Tracheostomy Clear to auscultation. Breath sounds equal bilaterally. No wheezes, rales, or rhonchi. GASTROINTESTINAL: PEG tube Abdomen soft, non-tender, nondistended. Normal active bowel sounds MUSCULOSKELETAL: Extremities without clubbing, cyanosis, or edema. NEURO: Encephalopathic, sleeping Procedures 01/02/16 PEG placement 01/02/16 tracheostomy 07/22/2016 Wide excision of sacral skin wound, biopsy of the cavity lining and debridement. 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 Patient is nonverbal. Continue Keppra for seizure prophylaxis. PT/OT signed off as patient is unable to participate. Continue keppra Start flexeryl at night prn 10/13 trial x 10 days Bowel regime. Stop lactinex. Temp of 100.7 on 10/18. Repeat CXR as above. Continue IV abx. Tylenol for fevers. Will check UA, LA, and will do blood cultures. VSS Clogged PEG tube 10/14. Failed attempt to flush feeding tube. Will consult IR. Continue feeding tube as per dietary recommendations, patent PEG. Continue flushing feeding tube to mentain patent. Chronic respiratory failure: Secondary to CVA. Status post tracheostomy. Continue pulmonary toilet and bronchodilators as needed. Continue trach care, suctioning. Levsin as needed. Atrial fibrillation: Continue rate control with Cardizem and metoprolol. Echocardiogram in November 2015 shows preserved ejection fraction. Coumadin discontinued secondary to bleeding. Continue aspirin and prophylactic heparin dose. History of non-Hodgkin's lymphoma: Status post brain biopsy on December 13 by neurosurgery. Pathology consistent with acute infarct without evidence of lymphoma. Oncology signed off. Diabetes mellitus: Hemoglobin A1c is 7. Continue Levemir. Monitor Accu-Cheks and cover with sliding scale insulin. Decubitus ulcer stage IV: Continue wound care, twice-daily dressing changes.. Wound care recommendations. Continue pressure relief measures including turning and positioning. Patient's family has declined a diverting colostomy. Wound culture growing Klebsiella. Antibiotics per infectious disease. Status post wide excision of sacral skin and biopsy of the cavity lining with debridement on 07/22/16. Gastric ulcer, reflux esophagitis: EGD on 07/30/16 showed gastric ulcers. Appreciate GI recommendations. Continue PPI. H&H stable. UTI pseudomonas aeruginosa treated with abx . Repeat Ucx 08/28/16 negative FEN: Continue Nepro tube feeds. Appreciate dietary recommendations. Continue free water flushes. Supplement potassium. Poor prognosis. DVT prophylaxis: SCDs. CM following for DC plan. Discussed with the patient, nurse, family at bedside, case management. Problem Qualifiers (1) DM (diabetes mellitus): Qualified Code: E11.9 - Type 2 diabetes mellitus without complications Nahomy Tatum MD Oct 19, 2016 08:45
[2016-10-19] MEDS: KETOCONAZOLE 2% CREAM 15 GM TOPICAL SCH ×2 (09:00→21:00)
[2016-10-19] MEDS: levETIRAcetam 500 MG/5 ML UDC TUBE SCH ×2 (09:34→23:19)
[2016-10-19] MEDS: DOCUSATE SODIUM 100 MG/10 ML UDC PO SCH ×2 (09:34→23:20)
[2016-10-19] MEDS: LACTULOSE SYRUP 20 GM/30 ML CUP PO SCH (09:34)
[2016-10-19] MEDS: DILTIAZEM HCL 30 MG TAB PEG SCH ×4 (09:34→23:20)
[2016-10-19] MEDS: ASPIRIN 325 MG TAB TUBE SCH (09:34)
[2016-10-19] MEDS: METOPROLOL TARTRATE 50 MG TAB PO SCH ×2 (09:35→23:19)
[2016-10-19] MEDS: BACITRACIN TOP OINT 15 GM TUBE TOP SCH ×2 (09:36→23:21)
[2016-10-19] MEDS: NYSTATIN 100,000 U/GM PWD 15 GM BTL TOPICAL SCH ×2 (09:36→23:21)
[2016-10-19] MEDS: ARTIFICIAL TEARS OPTH SOLN 15 ML BTL EACH EYE SCH ×2 (09:37→23:20)
[2016-10-19] MEDS: POTASSIUM CHLORIDE 25 MEQ EFFERVESCENT TAB TUBE SCH (09:37)
[2016-10-19] MEDS: SODIUM CHLORIDE 0.65% NASAL SPRAY 45 ML BTL NASAL SCH ×2 (09:37→23:20)
[2016-10-19] MEDS: PANTOPRAZOLE SODIUM 40 MG VIAL IV PUSH SCH ×2 (10:27→23:29)
[2016-10-19 12:32] LABS: AUTOMATED NEUTROPHIL # 4.2 TH/MM3 (1.8-7.7); BASOPHIL # 0.1 TH/MM3 (0-0.2); BASOPHIL % 1.2 % (0.0-2.0); EOSINOPHIL # 0.2 TH/MM3 (0-0.4); EOSINOPHIL % 3.2 % (0.0-4.0); HEMATOCRIT 29.6 % (39.0-51.0); LYMPH % 19.5 % (9.0-44.0); LYMPHOCYTE # 1.2 TH/MM3 (1.0-4.8); MEAN CELL VOLUME 74.1 FL (80.0-100.0); MEAN CORPUSCULAR HEMOGLOBIN 22.9 PG (27.0-34.0); MEAN CORPUSCULAR HGB CONC 30.9 % (32.0-36.0); MONO % 7.7 % (0.0-8.0); NEUT % 68.4 % (16.0-70.0); PLATELET COUNT 245 TH/MM3 (150-450); RED CELL DISTRIBUTION WIDTH 20.1 % (11.6-17.2); WHITE BLOOD COUNT 6.2 TH/MM3 (4.0-11.0)
[2016-10-19 12:35] LABS: HEMO FLAGS AUTO DIFF
[2016-10-19 13:21] LABS: BACTERIA, URINE OCC /hpf; BLOOD, URINE NEG (NEG); GLUCOSE,URINE NEG (NEG); GRANULAR CAST, URINE 1 /lpf; KETONE, URINE NEG (NEG); MUCUS URINE FEW /lpf (OCC); NITRITE,URINE NEG (NEG); PH, URINE 5.5 (5.0-8.5); URINE COLOR YELLOW (YELLW/STRAW)
[2016-10-19 13:24] LABS: SCAN/DIFF AUTO DIFF CONFIRMED
[2016-10-19 13:27] LABS: COMMENT (UR) CULTURE INDICATED; CULTURE IF INDICATED CULTURE INDICATED
--- NOTE | 2016-10-19 16:35 | HHI.PR ---
Subjective Remarks opens eyes on o2 , o2 SAT 96 on T PIECE low grade temp max 99.3 Objective Vital Signs Date Time Temp Pulse Resp B/P Pulse Ox O2 Delivery O2 Flow Rate FiO2 10/19/16 12:45 99.3 83 20 111/64 97 10/19/16 12:38 99 T-piece 28 10/19/16 08:22 99.3 91 22 119/63 96 10/19/16 08:00 97 6.00 28 10/19/16 07:55 96 10/19/16 04:00 97.6 91 18 128/61 97 10/19/16 00:00 97.1 83 18 107/67 97 10/18/16 20:00 96.5 87 18 108/68 97 I/O 10/18/16 10/18/16 10/18/16 10/19/16 10/19/16 10/19/16 07:00 15:00 23:00 07:00 15:00 23:00 Intake Total 292 ml 2431 ml Output Total 700 ml 1800 ml 450 ml Balance 292 ml -700 ml -1800 ml 1981 ml Tube Feeding 292 ml 1731 ml Tube Irrigant 300 ml Other 400 ml Output Urine Total 700 ml 1800 ml 450 ml Result Diagram: 10/19/16 1210 Procedures 01/02/16 PEG placement 01/02/16 tracheostomy 07/22/2016 Wide excision of sacral skin wound, biopsy of the cavity lining and debridement. PEG tube replacement 07/29/16 Objective Remarks GENERAL: SKIN: Warm and dry. HEAD: Atraumatic. Normocephalic. EYES: Pupils equal and round. No scleral icterus. No injection or drainage. ENT: No nasal bleeding or discharge. Mucous membranes pink and moist. NECK: Trachea midline. No JVD. TRACH. [place] CARDIOVASCULAR: Regular rate and rhythm. RESPIRATORY: No accessory muscle use. Clear to auscultation. Breath sounds equal bilaterally. GASTROINTESTINAL: Abdomen soft, non-tender, nondistended. Hepatic and splenic margins not palpable. MUSCULOSKELETAL: Extremities without clubbing, cyanosis, or edema. No obvious deformities. NEUROLOGICAL: Awake and alert. No obvious cranial nerve deficits. Motor grossly within normal limits. Five out of 5 muscle strength in the arms and legs. Normal speech. PSYCHIATRIC: Appropriate mood and affect; insight and judgment normal. Assessment and Plan Assessment and Plan impression respiratory failure CVA S/P TRACHEOSTOMY PLAN O2 NEEDED PULM. TOILET check Cxray Brandon Taylor MD Oct 19, 2016 16:35
[2016-10-19] MEDS: SENNOSIDES SYRUP 8.8 MG/5 ML CUP PO SCH (16:37)
[2016-10-19] MEDS: PARoxetine HCL SUSP 20 MG/10 ML UDC PEG SCH (18:13)
[2016-10-19] MEDS: INSULIN DETEMIR 100 UNITS/ML VIAL SQ SCH (23:19)
[2016-10-20] VITALS (11 sets, daily range): BP systolic 96–127; BP diastolic 57–75; PULSE 80–99; RESP 20; TEMP 97.7–99.3; O2SAT 93–99
[2016-10-20] MEDS: FREE WATER TUBE SCH ×5 (04:00→20:00)
[2016-10-20] MEDS: AMOXICILLIN (TRIHYDRATE) 500 MG CAP PO SCH ×3 (05:56→22:16)
[2016-10-20] MEDS: HEPARIN SODIUM - SQ 10,000 UNITS/ML VIAL SQ SCH ×3 (05:57→22:16)
[2016-10-20] MEDS: INSULIN ASPART SUPPLEMENTAL SCALE SQ SCH (06:06)
[2016-10-20] MEDS: ACETIC ACID 0.25% SOLN 1000 ML IRR BTL IRRIGATION SCH ×3 (06:07→22:17)
[2016-10-20] MEDS: ACETAMINOPHEN/HYDROcodone 325 MG/5 MG TAB PO PRN (06:37)
[2016-10-20] MEDS: LACTULOSE SYRUP 20 GM/30 ML CUP PO SCH (08:25)
[2016-10-20] MEDS: levETIRAcetam 500 MG/5 ML UDC TUBE SCH ×2 (08:25→22:16)
[2016-10-20] MEDS: POTASSIUM CHLORIDE 25 MEQ EFFERVESCENT TAB TUBE SCH (08:25)
[2016-10-20] MEDS: DILTIAZEM HCL 30 MG TAB PEG SCH ×4 (08:25→22:16)
[2016-10-20] MEDS: ASPIRIN 325 MG TAB TUBE SCH (08:26)
[2016-10-20] MEDS: ARTIFICIAL TEARS OPTH SOLN 15 ML BTL EACH EYE SCH ×2 (08:26→22:17)
[2016-10-20] MEDS: DOCUSATE SODIUM 100 MG/10 ML UDC PO SCH ×2 (08:26→22:16)
[2016-10-20] MEDS: METOPROLOL TARTRATE 50 MG TAB PO SCH ×2 (08:26→22:16)
[2016-10-20] MEDS: SODIUM CHLORIDE 0.65% NASAL SPRAY 45 ML BTL NASAL SCH ×2 (08:26→22:16)
[2016-10-20] MEDS: NYSTATIN 100,000 U/GM PWD 15 GM BTL TOPICAL SCH ×2 (08:27→22:17)
[2016-10-20] MEDS: BACITRACIN TOP OINT 15 GM TUBE TOP SCH ×2 (08:28→22:17)
[2016-10-20] MEDS: KETOCONAZOLE 2% CREAM 15 GM TOPICAL SCH ×2 (08:28→21:00)
[2016-10-20] MEDS: PANTOPRAZOLE SODIUM 40 MG VIAL IV PUSH SCH ×2 (09:29→22:18)
--- NOTE | 2016-10-20 10:37 | HHI.PR ---
Subjective Remarks awake, turned to call of his name and made eye contacvt tolerating tube feedings Objective Vitals Vital Signs Date Time Temp Pulse Resp B/P Pulse Ox O2 Delivery O2 Flow Rate FiO2 10/20/16 08:12 99.3 87 20 116/71 96 10/20/16 04:00 98.1 97 20 119/68 93 10/20/16 00:00 98.4 84 20 96/57 97 10/19/16 23:15 T-Piece 28 10/19/16 23:00 92 10/19/16 20:00 98.4 92 20 110/64 96 10/19/16 16:52 99.5 91 20 115/68 95 10/19/16 12:45 99.3 83 20 111/64 97 10/19/16 12:38 99 T-piece 28 I/O 10/19/16 10/19/16 10/19/16 10/20/16 10/20/16 10/20/16 07:00 15:00 23:00 07:00 15:00 23:00 Intake Total 2431 ml 275 ml 697 ml Output Total 1800 ml 450 ml 1050 ml Balance -1800 ml 1981 ml -775 ml 697 ml Tube Feeding 1731 ml 275 ml 697 ml Tube Irrigant 300 ml Other 400 ml Output Urine Total 1800 ml 450 ml 1050 ml # Bowel Movements 0 Result Diagram: 10/19/16 1210 Imaging Last Impressions Chest X-Ray 10/18/16 0000 Signed Impressions: Service Date/Time: Tuesday, October 18, 2016 19:17 - CONCLUSION: 1. Minimal right perihilar streakiness consistent with probable atelectasis. 2. Elevation of the right hemidiaphragm. 3. Tracheostomy tube in good position above the geno. Eduardo Valenzuela MD Tube Change 09/09/16 1011 Signed Impressions: Service Date/Time: Friday, September 09, 2016 11:27 - CONCLUSION: Occluded jejunal port of the GJ tube. Uncomplicated gastrojejunostomy tube exchange as above. Jonel Jones Jr., MD Abdomen X-Ray 08/31/16 0000 Signed Impressions: Service Date/Time: Wednesday, August 31, 2016 16:36 - CONCLUSION: 1. No acute findings. Mild constipation. Durga Dotson MD Abdomen/Pelvis CT 04/12/16 0000 Signed Impressions: Service Date/Time: Tuesday, April 12, 2016 20:52 - CONCLUSION: 1. 6.4 cm necrotic mass or abscess in the soft tissues posteriorly just below the sacrum associated with some bony destructive change of the lower most sacrum and coccyx with inflammatory changes extending into the ischiorectal fossa and into the presacral retroperitoneum predominantly on the left side. There is associated fairly marked mural thickening of the anal verge and rectum. 2. There is gastrostomy and Lopez catheter present. Stable abdominal aortic aneurysm. Durga Dotson MD Head Magnetic Resonance Angiography 03/05/16 0000 Signed Impressions: Service Date/Time: Saturday, March 05, 2016 09:26 - CONCLUSION: Persistent high-grade subtotal occlusive stenotic lesions in the distal right vertebral artery and proximal basilar artery with significant improvement in flow and recanalization following initial presentation of thrombosis. Stable interstitial circulation without significant stenosis. Ernesto Kulkarni MD Brain MRI 03/05/16 Signed Impressions: Service Date/Time: Saturday, March 05, 2016 09:26 - CONCLUSION: Evolving brainstem and bilateral occipital lobe infarcts with evidence of subacute hemorrhagic products. There is decreasing restricted diffusion and increasing loss of volume characteristic of a subacute to chronic infarct. No evidence of acute infarct, acute hemorrhage mass or edema. Ernesto Kulkarni MD Head CT 01/16/16 Signed Impressions: Service Date/Time: Saturday, January 16, 2016 10:51 - CONCLUSION: No extensive low density in the brainstem colin more prominent in the right the left extending into the right middle cerebellar peduncle consistent with brainstem infarct nonhemorrhagic acute Wellington West MD Neck Magnetic Resonance Angiography 12/22/15 1445 Signed Impressions: Service Date/Time: Tuesday, December 22, 2015 09:22 - CONCLUSION: Variant origin of the left vertebral artery from the aortic arch. No evidence of carotid stenosis. Glen Zamora MD Head/Brain Mag Res Venography 12/22/15 Signed Impressions: Service Date/Time: Tuesday, December 22, 2015 09:22 - CONCLUSION: Normal MRV. Jonel Jones Jr., MD Objective Remarks pupils equal, anicteric no gag reflex neck supple no rigidity, tracheostomy in place lungs- no rales or wheezes regular rhythm abdomen- soft, good bowel sounds, PEG site- no signs of erythema loepz in place, no scrotal swelling sacrum- VAC in place extremities- both feet withdraws to stimulation Procedures 01/02/16 PEG placement 01/02/16 tracheostomy 07/22/2016 Wide excision of sacral skin wound, biopsy of the cavity lining and debridement. 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 Patient is nonverbal. Continue Keppra for seizure prophylaxis. PT/OT signed off as patient is unable to participate. Continue keppra flexeril at night prn 10/13 trial x 10 days Bowel regimen. Stop lactinex. Temp of 100.7 on 10/18. Repeat CXR as above. Continue IV abx. Tylenol for fevers. Will check UA, LA, and will do blood cultures. VSS Clogged PEG tube 10/14. Failed attempt to flush feeding tube. Will consult IR. Continue feeding tube as per dietary recommendations, patent PEG. Continue flushing feeding tube to maintain patency Chronic respiratory failure: Secondary to CVA. Status post tracheostomy. Continue pulmonary toilet and bronchodilators as needed. Continue trach care, suctioning. Levsin as needed. Atrial fibrillation: Continue rate control with Cardizem and metoprolol. Echocardiogram in November 2015 shows preserved ejection fraction. Coumadin discontinued secondary to bleeding. Continue aspirin and prophylactic heparin dose. History of non-Hodgkin's lymphoma: Status post brain biopsy on December 13 by neurosurgery. Pathology consistent with acute infarct without evidence of lymphoma. Oncology signed off. Diabetes mellitus: Hemoglobin A1c is 7. Continue Levemir. Monitor Accu-Cheks and cover with sliding scale insulin. Decubitus ulcer stage IV: Continue wound care, twice-daily dressing changes.. Wound care recommendations. Continue pressure relief measures including turning and positioning. Patient's family has declined a diverting colostomy. Wound culture growing Klebsiella. Status post wide excision of sacral skin and biopsy of the cavity lining with debridement on 07/22/16. wound VAC changes- M-W-F Gastric ulcer, reflux esophagitis: EGD on 07/30/16 showed gastric ulcers. Appreciate GI recommendations. Continue PPI. H&H stable. UTI pseudomonas aeruginosa treated with abx . Repeat Ucx 08/28/16 negative FEN: Continue Nepro tube feeds. Appreciate dietary recommendations. Continue free water flushes. Supplement potassium. DVT prophylaxis: SCDs. DVT px - SCDs. Discharge Planning Difficult placement per CM notes Problem Qualifiers (1) DM (diabetes mellitus): Qualified Code: E11.9 - Type 2 diabetes mellitus without complications Soco Pickett MD Oct 20, 2016 10:37 discontinued secondary to bleeding. Continue with ASA and prophylactic heparin dose. If persistently without any bleeding, could consider restarting Coumadin. CBC stable. Heart rate stable 07/05. Continue to monitor. History of Non-Hodgkin lymphoma: s/p brain biopsy on December 13, by Neurosurgery, Dr. Marin. Pathology consistent with acute infarct without evidence of lymphoma. Oncology signed off with no active oncology issues. DM (diabetes mellitus): HgbA1c 7%. Continue Levemir 35u daily. Continue sliding scale coverage. Monitor accuchecks and adjust the regimen as needed. Decubitus ulcer stage IV: Continue Rocephin indefinitely (on lactinex) per ID until OM is ruled out with bone biopsy and watch for further bleeding (off warfarin due to bleeding which appears to have resolved). Continue dressing changes twice daily per wound care recommendations. Continue pressure relief measures, mattress, Turning and positioning. Patient's family declined a diverting colostomy. Continue wound care. Wound is growing Klebsiella. Continue ceftriaxone. Per ID on 07/05, continue antibiotics for however long pt is here and then possibly could switch to PO upon discharge. GI/Nutrition: Continue Nepro at 55 cc/hr per dietitian recommendations. Free water flushes. Potassium supplement. Tolerating tube feeds 07/05. DVT px - SCDs. Discharge Planning Difficult placement per CM notes Problem Qualifiers (1) DM (diabetes mellitus): Qualified Code: E11.9 - Type 2 diabetes mellitus without complications Soco Pickett MD Oct 20, 2016 10:37
[2016-10-20] MEDS: BISACODYL 10 MG SUPP RECTAL PRN (12:53)
[2016-10-20] MEDS: MAGNESIUM HYDROXIDE SUSP 30 ML CUP PO PRN (12:54)
[2016-10-20] MEDS: SENNOSIDES SYRUP 8.8 MG/5 ML CUP PO SCH (17:15)
[2016-10-20] MEDS: PARoxetine HCL SUSP 20 MG/10 ML UDC PEG SCH (18:19)
--- NOTE | 2016-10-20 18:50 | HHI.PR ---
Subjective Remarks opens eyes on o2 , o2 SAT 96 on T PIECE low grade temp max 99.3 Objective Vital Signs Date Time Temp Pulse Resp B/P Pulse Ox O2 Delivery O2 Flow Rate FiO2 10/20/16 18:01 99 T-piece 6.00 28 10/20/16 16:03 97.7 83 20 115/66 99 10/20/16 13:14 98 T-piece 28 10/20/16 13:14 98 T-piece 28 10/20/16 12:12 98.6 80 20 100/66 99 10/20/16 08:12 99.3 87 20 116/71 96 10/20/16 08:00 99 10/20/16 04:00 98.1 97 20 119/68 93 10/20/16 00:00 98.4 84 20 96/57 97 10/19/16 23:15 T-Piece 28 10/19/16 23:00 92 10/19/16 20:00 98.4 92 20 110/64 96 I/O 10/19/16 10/19/16 10/19/16 10/20/16 10/20/16 10/20/16 07:00 15:00 23:00 07:00 15:00 23:00 Intake Total 2431 ml 275 ml 697 ml Output Total 1800 ml 450 ml 1050 ml 400 ml Balance -1800 ml 1981 ml -775 ml 297 ml Tube Feeding 1731 ml 275 ml 697 ml Tube Irrigant 300 ml Other 400 ml Output Urine Total 1800 ml 450 ml 1050 ml 400 ml # Bowel Movements 0 0 Result Diagram: 10/19/16 1210 Procedures 01/02/16 PEG placement 01/02/16 tracheostomy 07/22/2016 Wide excision of sacral skin wound, biopsy of the cavity lining and debridement. PEG tube replacement 07/29/16 Objective Remarks GENERAL: SKIN: Warm and dry. HEAD: Atraumatic. Normocephalic. EYES: Pupils equal and round. No scleral icterus. No injection or drainage. ENT: No nasal bleeding or discharge. Mucous membranes pink and moist. NECK: Trachea midline. No JVD. TRACH. [place] CARDIOVASCULAR: Regular rate and rhythm. RESPIRATORY: No accessory muscle use. Clear to auscultation. Breath sounds equal bilaterally. GASTROINTESTINAL: Abdomen soft, non-tender, nondistended. Hepatic and splenic margins not palpable. MUSCULOSKELETAL: Extremities without clubbing, cyanosis, or edema. No obvious deformities. NEUROLOGICAL: Awake and alert. No obvious cranial nerve deficits. Motor grossly within normal limits. Five out of 5 muscle strength in the arms and legs. Normal speech. PSYCHIATRIC: Appropriate mood and affect; insight and judgment normal. Assessment and Plan Assessment and Plan impression respiratory failure CVA S/P TRACHEOSTOMY PLAN O2 NEEDED PULM. TOILET check Cxray Brandon Taylor MD Oct 20, 2016 18:50
[2016-10-20] MEDS: INSULIN DETEMIR 100 UNITS/ML VIAL SQ SCH (22:15)
[2016-10-21] VITALS (9 sets, daily range): BP systolic 108–126; BP diastolic 63–72; PULSE 82–97; RESP 18–20; TEMP 96.6–98.7; O2SAT 95–99
[2016-10-21] MEDS: FREE WATER TUBE SCH ×6 (04:00→20:00)
[2016-10-21] MEDS: ACETIC ACID 0.25% SOLN 1000 ML IRR BTL IRRIGATION SCH ×3 (06:00→21:43)
[2016-10-21] MEDS: HEPARIN SODIUM - SQ 10,000 UNITS/ML VIAL SQ SCH ×3 (06:00→21:03)
[2016-10-21] MEDS: AMOXICILLIN (TRIHYDRATE) 500 MG CAP PO SCH ×3 (06:00→21:02)
[2016-10-21] MEDS: INSULIN ASPART SUPPLEMENTAL SCALE SQ SCH (06:47)
[2016-10-21] MEDS: NYSTATIN 100,000 U/GM PWD 15 GM BTL TOPICAL SCH ×2 (09:00→21:04)
[2016-10-21] MEDS: POTASSIUM CHLORIDE 25 MEQ EFFERVESCENT TAB TUBE SCH (09:00)
[2016-10-21] MEDS: KETOCONAZOLE 2% CREAM 15 GM TOPICAL SCH ×2 (09:00→21:00)
[2016-10-21] MEDS: BACITRACIN TOP OINT 15 GM TUBE TOP SCH ×2 (09:00→21:00)
[2016-10-21] MEDS: SODIUM CHLORIDE 0.65% NASAL SPRAY 45 ML BTL NASAL SCH ×2 (09:00→21:00)
[2016-10-21] MEDS: DOCUSATE SODIUM 100 MG/10 ML UDC PO SCH ×2 (09:10→21:01)
[2016-10-21] MEDS: PANTOPRAZOLE SODIUM 40 MG VIAL IV PUSH SCH ×2 (09:10→22:15)
[2016-10-21] MEDS: LACTULOSE SYRUP 20 GM/30 ML CUP PO SCH (09:10)
[2016-10-21] MEDS: DILTIAZEM HCL 30 MG TAB PEG SCH ×4 (09:10→21:02)
[2016-10-21] MEDS: ASPIRIN 325 MG TAB TUBE SCH (09:10)
[2016-10-21] MEDS: levETIRAcetam 500 MG/5 ML UDC TUBE SCH ×2 (09:10→21:02)
[2016-10-21] MEDS: METOPROLOL TARTRATE 50 MG TAB PO SCH ×2 (09:10→21:02)
[2016-10-21] MEDS: ARTIFICIAL TEARS OPTH SOLN 15 ML BTL EACH EYE SCH ×2 (09:11→21:04)
--- NOTE | 2016-10-21 12:01 | HHI.PR ---
Subjective Remarks afebrile, tolerating tube feedings, no residuals minimal secretions good sats at 28% Objective Vitals Vital Signs Date Time Temp Pulse Resp B/P Pulse Ox O2 Delivery O2 Flow Rate FiO2 10/21/16 08:15 98.7 94 20 126/65 96 10/21/16 04:10 T-Piece 28 10/21/16 04:00 96.6 87 20 124/72 98 10/21/16 00:00 97.8 82 20 120/67 97 10/20/16 23:00 87 10/20/16 22:23 127/75 10/20/16 20:00 97.9 89 20 110/65 98 10/20/16 18:01 99 T-piece 6.00 28 10/20/16 16:03 97.7 83 20 115/66 99 10/20/16 13:14 98 T-piece 10/20/16 13:14 98 T-piece 10/20/16 12:12 98.6 80 20 100/66 99 I/O 10/20/16 10/20/16 10/20/16 10/21/16 10/21/16 10/21/16 07:00 15:00 23:00 07:00 15:00 23:00 Intake Total 697 ml 1000 ml Output Total 400 ml 450 ml 1250 ml Balance 297 ml -450 ml -250 ml Tube Feeding 697 ml 1000 ml Output Urine Total 400 ml 450 ml 1250 ml # Bowel Movements 0 0 1 Result Diagram: 10/19/16 1210 Imaging Last Impressions Chest X-Ray 10/18/16 0000 Signed Impressions: Service Date/Time: Tuesday, October 18, 2016 19:17 - CONCLUSION: 1. Minimal right perihilar streakiness consistent with probable atelectasis. 2. Elevation of the right hemidiaphragm. 3. Tracheostomy tube in good position above the geno. Eduardo Valenzuela MD Tube Change 09/09/16 1011 Signed Impressions: Service Date/Time: Friday, September 09, 2016 11:27 - CONCLUSION: Occluded jejunal port of the GJ tube. Uncomplicated gastrojejunostomy tube exchange as above. Jonel Jones Jr., MD Abdomen X-Ray 08/31/16 0000 Signed Impressions: Service Date/Time: Wednesday, August 31, 2016 16:36 - CONCLUSION: 1. No acute findings. Mild constipation. Durga Dotson MD Abdomen/Pelvis CT 04/12/16 0000 Signed Impressions: Service Date/Time: Tuesday, April 12, 2016 20:52 - CONCLUSION: 1. 6.4 cm necrotic mass or abscess in the soft tissues posteriorly just below the sacrum associated with some bony destructive change of the lower most sacrum and coccyx with inflammatory changes extending into the ischiorectal fossa and into the presacral retroperitoneum predominantly on the left side. There is associated fairly marked mural thickening of the anal verge and rectum. 2. There is gastrostomy and Lopez catheter present. Stable abdominal aortic aneurysm. Durga Dotson MD Head Magnetic Resonance Angiography 03/05/16 0000 Signed Impressions: Service Date/Time: Saturday, March 05, 2016 09:26 - CONCLUSION: Persistent high-grade subtotal occlusive stenotic lesions in the distal right vertebral artery and proximal basilar artery with significant improvement in flow and recanalization following initial presentation of thrombosis. Stable interstitial circulation without significant stenosis. 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 There is decreasing restricted diffusion and increasing loss of volume characteristic of a subacute to chronic infarct. No evidence of acute infarct, acute hemorrhage mass or edema. Ernesto Kulkarni MD Head CT 01/16/16 0000 Signed Impressions: Service Date/Time: Saturday, January 16, 2016 10:51 - CONCLUSION: No extensive low density in the brainstem colin more prominent in the right the left extending into the right middle cerebellar peduncle consistent with brainstem infarct nonhemorrhagic acute Wellington West MD Neck Magnetic Resonance Angiography 12/22/15 1445 Signed Impressions: Service Date/Time: Tuesday, December 22, 2015 09:22 - CONCLUSION: Variant origin of the left vertebral artery from the aortic arch. No evidence of carotid stenosis. Glen Zamora MD Head/Brain Mag Res Venography 12/22/15 0000 Signed Impressions: Service Date/Time: Tuesday, December 22, 2015 09:22 - CONCLUSION: Normal MRV. Jonel Jones Jr., MD Objective Remarks pupils equal, anicteric no gag reflex neck supple no rigidity, tracheostomy in place lungs- no rales or wheezes regular rhythm abdomen- soft, good bowel sounds, PEG site- no signs of erythema lopez in place, no scrotal swelling sacrum- VAC in place extremities- both feet withdraws to stimulation Procedures 01/02/16 PEG placement 01/02/16 tracheostomy 07/22/2016 Wide excision of sacral skin wound, biopsy of the cavity lining and debridement. 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 Patient is nonverbal. Continue Keppra for seizure prophylaxis. PT/OT signed off as patient is unable to participate. Continue keppra flexeril at night prn 10/13 trial x 10 days Bowel regimen. Stop lactinex. Clogged PEG tube 10/14. resolved. patent PEG. Continue flushing feeding tube to maintain patency- for medicine administration J tube- patent- for feedings Chronic respiratory failure: Secondary to CVA. Status post tracheostomy. Continue pulmonary toilet and bronchodilators as needed. Continue trach care, suctioning. Levsin as needed. Atrial fibrillation: Continue rate control with Cardizem and metoprolol. Echocardiogram in November 2015 shows preserved ejection fraction. Coumadin discontinued secondary to bleeding. Continue aspirin and prophylactic heparin dose. History of non-Hodgkin's lymphoma: Status post brain biopsy on December 13 by neurosurgery. Pathology consistent with acute infarct without evidence of lymphoma. Oncology signed off. Diabetes mellitus: Hemoglobin A1c is 7. Continue Levemir. Monitor Accu-Cheks and cover with sliding scale insulin. Decubitus ulcer stage IV: Continue wound care, twice-daily dressing changes.. Wound care recommendations. Continue pressure relief measures including turning and positioning. Patient's family has declined a diverting colostomy. Wound culture growing Klebsiella. Status post wide excision of sacral skin and biopsy of the cavity lining with debridement on 07/22/16. wound VAC changes-- tues/Frid- 2x a week Gastric ulcer, reflux esophagitis: EGD on 07/30/16 showed gastric ulcers. Appreciate GI recommendations. Continue PPI. H&H stable. UTI pseudomonas aeruginosa treated with abx . Repeat Ucx 08/28/16 negative Lopez catheterization- due to immobilization, last changed 10/12. change q 30 days FEN: Continue Nepro tube feeds. Appreciate dietary recommendations. Continue free water flushes. Supplement potassium. DVT prophylaxis: SCDs. DVT px - SCDs. Discharge Planning Difficult placement per CM notes Problem Qualifiers (1) DM (diabetes mellitus): Qualified Code: E11.9 - Type 2 diabetes mellitus without complications Soco Pickett MD Oct 21, 2016 12:01
--- NOTE | 2016-10-21 15:15 | HHI.PR ---
Subjective Remarks opens eyes on o2 , o2 SAT 96 on T PIECE Objective Vital Signs Date Time Temp Pulse Resp B/P Pulse Ox O2 Delivery O2 Flow Rate FiO2 10/21/16 10:30 98.6 87 20 108/68 95 10/21/16 08:15 98.7 94 20 126/65 96 10/21/16 08:00 96 T-piece 6.00 28 10/21/16 08:00 96 T-piece 6.00 28 10/21/16 04:10 T-Piece 28 10/21/16 04:00 96.6 87 20 124/72 98 10/21/16 00:00 97.8 82 20 120/67 97 10/20/16 23:00 87 10/20/16 22:23 127/75 10/20/16 20:00 97.9 89 20 110/65 98 10/20/16 18:01 99 T-piece 6.00 28 10/20/16 16:03 97.7 83 20 115/66 99 I/O 10/20/16 10/20/16 10/20/16 10/21/16 10/21/16 10/21/16 07:00 15:00 23:00 07:00 15:00 23:00 Intake Total 697 ml 1000 ml Output Total 400 ml 450 ml 1250 ml Balance 297 ml -450 ml -250 ml Tube Feeding 697 ml 1000 ml Output Urine Total 400 ml 450 ml 1250 ml # Bowel Movements 0 0 1 Result Diagram: 10/19/16 1210 Procedures 01/02/16 PEG placement 01/02/16 tracheostomy 07/22/2016 Wide excision of sacral skin wound, biopsy of the cavity lining and debridement. PEG tube replacement 07/29/16 Objective Remarks GENERAL: SKIN: Warm and dry. HEAD: Atraumatic. Normocephalic. EYES: Pupils equal and round. No scleral icterus. No injection or drainage. ENT: No nasal bleeding or discharge. Mucous membranes pink and moist. NECK: Trachea midline. No JVD. TRACH. [place] CARDIOVASCULAR: Regular rate and rhythm. RESPIRATORY: No accessory muscle use. Clear to auscultation. Breath sounds equal bilaterally. GASTROINTESTINAL: Abdomen soft, non-tender, nondistended. Hepatic and splenic margins not palpable. MUSCULOSKELETAL: Extremities without clubbing, cyanosis, or edema. No obvious deformities. NEUROLOGICAL: Awake and alert. No obvious cranial nerve deficits. Motor grossly within normal limits. Five out of 5 muscle strength in the arms and legs. Normal speech. PSYCHIATRIC: Appropriate mood and affect; insight and judgment normal. Assessment and Plan Assessment and Plan impression respiratory failure CVA S/P TRACHEOSTOMY PLAN O2 NEEDED PULM. TOILET check Cxray Brandon Taylor MD Oct 21, 2016 15:15
[2016-10-21] MEDS: PARoxetine HCL SUSP 20 MG/10 ML UDC PEG SCH ×3 (17:04→21:02)
[2016-10-21] MEDS: SENNOSIDES SYRUP 8.8 MG/5 ML CUP PO SCH (17:04)
[2016-10-21] MEDS: INSULIN DETEMIR 100 UNITS/ML VIAL SQ SCH (21:01)
[2016-10-21] MEDS: CYCLOBENZAPRINE HCL 10 MG TAB PO PRN (21:03)
[2016-10-22] VITALS (8 sets, daily range): BP systolic 105–127; BP diastolic 64–80; PULSE 82–107; RESP 18–20; TEMP 97.8–99.6; O2SAT 95–100
[2016-10-22] MEDS: MORPHINE SULFATE 4 MG/ML INJ IV PUSH PRN (02:00)
[2016-10-22] MEDS: FREE WATER TUBE SCH ×6 (04:00→20:00)
[2016-10-22] MEDS: ACETIC ACID 0.25% SOLN 1000 ML IRR BTL IRRIGATION SCH ×3 (06:26→21:20)
[2016-10-22] MEDS: AMOXICILLIN (TRIHYDRATE) 500 MG CAP PO SCH ×3 (06:26→21:16)
[2016-10-22] MEDS: HEPARIN SODIUM - SQ 10,000 UNITS/ML VIAL SQ SCH ×3 (06:27→21:17)
[2016-10-22] MEDS: INSULIN ASPART SUPPLEMENTAL SCALE SQ SCH (06:52)
--- NOTE | 2016-10-22 08:35 | HHI.PR ---
Subjective Remarks opens eyes on o2 , o2 SAT 96 on T PIECE Objective Vital Signs Date Time Temp Pulse Resp B/P Pulse Ox O2 Delivery O2 Flow Rate FiO2 10/22/16 08:32 98.7 87 20 127/80 97 10/22/16 04:37 99.6 89 20 122/73 100 10/22/16 02:05 18 10/22/16 01:31 98.7 82 20 114/66 97 10/21/16 20:30 98.1 97 18 119/72 97 10/21/16 20:17 99 T-piece 28 10/21/16 20:17 99 T-piece 28 10/21/16 20:00 86 10/21/16 14:45 97.1 86 20 116/63 98 10/21/16 10:30 98.6 87 20 108/68 95 I/O 10/21/16 10/21/16 10/21/16 10/22/16 10/22/16 10/22/16 07:00 15:00 23:00 07:00 15:00 23:00 Intake Total 1000 ml 1000 ml Output Total 1250 ml 525 ml 1550 ml Balance -250 ml -525 ml 1000 ml -1550 ml Tube Feeding 1000 ml 1000 ml Output Urine Total 1250 ml 525 ml 1550 ml Bladder Scan Volume Amount 392 ml # Bowel Movements 1 1 Result Diagram: 10/19/16 1210 Procedures 01/02/16 PEG placement 01/02/16 tracheostomy 07/22/2016 Wide excision of sacral skin wound, biopsy of the cavity lining and debridement. PEG tube replacement 07/29/16 Objective Remarks GENERAL: SKIN: Warm and dry. HEAD: Atraumatic. Normocephalic. EYES: Pupils equal and round. No scleral icterus. No injection or drainage. ENT: No nasal bleeding or discharge. Mucous membranes pink and moist. NECK: Trachea midline. No JVD. TRACH. [place] CARDIOVASCULAR: Regular rate and rhythm. RESPIRATORY: No accessory muscle use. Clear to auscultation. Breath sounds equal bilaterally. GASTROINTESTINAL: Abdomen soft, non-tender, nondistended. Hepatic and splenic margins not palpable. MUSCULOSKELETAL: Extremities without clubbing, cyanosis, or edema. No obvious deformities. NEUROLOGICAL: Awake and alert. No obvious cranial nerve deficits. Motor grossly within normal limits. Five out of 5 muscle strength in the arms and legs. Normal speech. PSYCHIATRIC: Appropriate mood and affect; insight and judgment normal. Assessment and Plan Assessment and Plan impression respiratory failure CVA S/P TRACHEOSTOMY PLAN O2 NEEDED PULM. TOILET BMP , CBC Brandon Taylor MD Oct 22, 2016 08:35
[2016-10-22] MEDS: KETOCONAZOLE 2% CREAM 15 GM TOPICAL SCH ×2 (09:00→21:00)
[2016-10-22] MEDS: SODIUM CHLORIDE 0.65% NASAL SPRAY 45 ML BTL NASAL SCH ×2 (09:00→21:00)
[2016-10-22] MEDS: DILTIAZEM HCL 30 MG TAB PEG SCH ×4 (09:59→21:16)
[2016-10-22] MEDS: ASPIRIN 325 MG TAB TUBE SCH (09:59)
[2016-10-22] MEDS: METOPROLOL TARTRATE 50 MG TAB PO SCH ×2 (10:00→21:16)
[2016-10-22] MEDS: levETIRAcetam 500 MG/5 ML UDC TUBE SCH ×2 (10:01→21:19)
[2016-10-22] MEDS: POTASSIUM CHLORIDE 25 MEQ EFFERVESCENT TAB TUBE SCH (10:02)
[2016-10-22] MEDS: LACTULOSE SYRUP 20 GM/30 ML CUP PO SCH (10:02)
[2016-10-22] MEDS: DOCUSATE SODIUM 100 MG/10 ML UDC PO SCH ×2 (10:02→21:16)
[2016-10-22] MEDS: NYSTATIN 100,000 U/GM PWD 15 GM BTL TOPICAL SCH ×2 (10:03→21:18)
[2016-10-22] MEDS: ARTIFICIAL TEARS OPTH SOLN 15 ML BTL EACH EYE SCH ×2 (10:03→21:18)
[2016-10-22] MEDS: BACITRACIN TOP OINT 15 GM TUBE TOP SCH ×2 (10:05→21:18)
[2016-10-22 10:52] LABS: AUTOMATED NEUTROPHIL # 4.1 TH/MM3 (1.8-7.7); BASOPHIL # 0.1 TH/MM3 (0-0.2); BASOPHIL % 1.4 % (0.0-2.0); EOSINOPHIL # 0.2 TH/MM3 (0-0.4); EOSINOPHIL % 2.9 % (0.0-4.0); HEMATOCRIT 30.2 % (39.0-51.0); LYMPH % 20.5 % (9.0-44.0); LYMPHOCYTE # 1.2 TH/MM3 (1.0-4.8); MEAN CELL VOLUME 73.7 FL (80.0-100.0); MEAN CORPUSCULAR HGB CONC 31.2 % (32.0-36.0); MONO % 7.4 % (0.0-8.0); NEUT % 67.8 % (16.0-70.0); PLATELET COUNT 268 TH/MM3 (150-450); RED BLOOD COUNT 4.09 MIL/MM3 (4.50-5.90); RED CELL DISTRIBUTION WIDTH 19.2 % (11.6-17.2)
[2016-10-22 10:57] LABS: HEMO FLAGS AUTO DIFF
[2016-10-22 11:13] LABS: BICARBONATE 25.3 MEQ/L (21.0-32.0); POTASSIUM 4.1 MEQ/L (3.5-5.1)
[2016-10-22 11:39] LABS: PLATELET ESTIMATE SMEAR NORMAL (NORMAL); PLATELET MORPHOLOGY NORMAL (NORMAL); SCAN/DIFF AUTO DIFF CONFIRMED
[2016-10-22] MEDS: PANTOPRAZOLE SODIUM 40 MG VIAL IV PUSH SCH ×2 (12:41→21:16)
--- NOTE | 2016-10-22 14:32 | HHI.PR ---
Subjective Remarks tolerating tube feedings some minimal bleeding during VAC change - controlled maintaining sats Objective Vitals Vital Signs Date Time Temp Pulse Resp B/P Pulse Ox O2 Delivery O2 Flow Rate FiO2 10/22/16 13:06 99.6 89 20 105/64 97 10/22/16 08:32 98.7 87 20 127/80 97 10/22/16 04:37 99.6 89 20 122/73 100 10/22/16 02:05 18 10/22/16 01:31 98.7 82 20 114/66 97 10/21/16 20:30 98.1 97 18 119/72 97 10/21/16 20:17 99 T-piece 28 10/21/16 20:17 99 T-piece 28 10/21/16 20:00 86 10/21/16 14:45 97.1 86 20 116/63 98 I/O 10/21/16 10/21/16 10/21/16 10/22/16 10/22/16 10/22/16 07:00 15:00 23:00 07:00 15:00 23:00 Intake Total 1000 ml 1000 ml Output Total 1250 ml 525 ml 1550 ml Balance -250 ml -525 ml 1000 ml -1550 ml Tube Feeding 1000 ml 1000 ml Output Urine Total 1250 ml 525 ml 1550 ml Bladder Scan Volume Amount 392 ml # Bowel Movements 1 1 Result Diagram: 10/22/16 1036 10/22/16 1036 Imaging Last Impressions Chest X-Ray 10/18/16 0000 Signed Impressions: Service Date/Time: Tuesday, October 18, 2016 19:17 - CONCLUSION: 1. Minimal right perihilar streakiness consistent with probable atelectasis. 2. Elevation of the right hemidiaphragm. 3. Tracheostomy tube in good position above the geno. Eduardo Valenzuela MD Tube Change 09/09/16 1011 Signed Impressions: Service Date/Time: Friday, September 09, 2016 11:27 - CONCLUSION: Occluded jejunal port of the GJ tube. Uncomplicated gastrojejunostomy tube exchange as above. Jonel Jones Jr., MD Abdomen X-Ray 08/31/16 0000 Signed Impressions: Service Date/Time: Wednesday, August 31, 2016 16:36 - CONCLUSION: 1. No acute findings. Mild constipation. Durga Dotson MD Abdomen/Pelvis CT 04/12/16 0000 Signed Impressions: Service Date/Time: Tuesday, April 12, 2016 20:52 - CONCLUSION: 1. 6.4 cm necrotic mass or abscess in the soft tissues posteriorly just below the sacrum associated with some bony destructive change of the lower most sacrum and coccyx with inflammatory changes extending into the ischiorectal fossa and into the presacral retroperitoneum predominantly on the left side. There is associated fairly marked mural thickening of the anal verge and rectum. 2. There is gastrostomy and Lopez catheter present. Stable abdominal aortic aneurysm. Durga Dotson MD Head Magnetic Resonance Angiography 03/05/16 0000 Signed Impressions: Service Date/Time: Saturday, March 05, 2016 09:26 - CONCLUSION: Persistent high-grade subtotal occlusive stenotic lesions in the distal right vertebral artery and proximal basilar artery with significant improvement in flow and recanalization following initial presentation of thrombosis. Stable interstitial circulation without significant stenosis. 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 There is decreasing restricted diffusion and increasing loss of volume characteristic of a subacute to chronic infarct. No evidence of acute infarct, acute hemorrhage mass or edema. Ernesto Kulkarni MD Head CT 01/16/16 0000 Signed Impressions: Service Date/Time: Saturday, January 16, 2016 10:51 - CONCLUSION: No extensive low density in the brainstem colin more prominent in the right the left extending into the right middle cerebellar peduncle consistent with brainstem infarct nonhemorrhagic acute Wellington West MD Neck Magnetic Resonance Angiography 12/22/15 1445 Signed Impressions: Service Date/Time: Tuesday, December 22, 2015 09:22 - CONCLUSION: Variant origin of the left vertebral artery from the aortic arch. No evidence of carotid stenosis. Glen Zamora MD Head/Brain Mag Res Venography 12/22/15 0000 Signed Impressions: Service Date/Time: Tuesday, December 22, 2015 09:22 - CONCLUSION: Normal MRV. Jonel Jones Jr., MD Objective Remarks pupils equal, anicteric no rigidity, tracheostomy in place lungs- no rales or wheezes regular rhythm abdomen- soft, good bowel sounds, PEG site- no signs of erythema lopez in place, no scrotal swelling sacrum- VAC in place extremities- both feet withdraws to stimulation Procedures 01/02/16 PEG placement 01/02/16 tracheostomy 07/22/2016 Wide excision of sacral skin wound, biopsy of the cavity lining and debridement. 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 Patient is nonverbal. Continue Keppra for seizure prophylaxis. PT/OT signed off as patient is unable to participate. Continue keppra flexeril at night prn 10/13 trial x 10 days Bowel regimen. Stop lactinex. Clogged PEG tube 10/14. resolved. patent PEG. Continue flushing feeding tube to maintain patency- for medicine administration J tube- patent- for feedings - clogged again today- IR nurse called to help us flush if unable- IR consult for GJ tube Chronic respiratory failure: Secondary to CVA. Status post tracheostomy. Continue pulmonary toilet and bronchodilators as needed. Continue trach care, suctioning. Levsin as needed. Atrial fibrillation: Continue rate control with Cardizem and metoprolol. Echocardiogram in November 2015 shows preserved ejection fraction. Coumadin discontinued secondary to bleeding. Continue aspirin and prophylactic heparin dose. History of non-Hodgkin's lymphoma: Status post brain biopsy on December 13 by neurosurgery. Pathology consistent with acute infarct without evidence of lymphoma. Oncology signed off. Diabetes mellitus: Hemoglobin A1c is 7. Continue Levemir. Monitor Accu-Cheks and cover with sliding scale insulin. Decubitus ulcer stage IV: Continue wound care, twice-daily dressing changes.. Wound care recommendations. Continue pressure relief measures including turning and positioning. Patient's family has declined a diverting colostomy. Wound culture growing Klebsiella. Status post wide excision of sacral skin and biopsy of the cavity lining with debridement on 07/22/16. wound VAC changes-- Tues/Frid 2x a week Gastric ulcer, reflux esophagitis: EGD on 07/30/16 showed gastric ulcers. Appreciate GI recommendations. Continue PPI. H&H stable. UTI pseudomonas aeruginosa treated with abx . Repeat Ucx 08/28/16 negative Lopez catheterization- due to immobilization, last changed 10/12. change q 30 days FEN: Continue Nepro tube feeds. Appreciate dietary recommendations. Continue free water flushes. Supplement potassium. DVT prophylaxis: SCDs. DVT px - SCDs. Discharge Planning Difficult placement per CM notes Problem Qualifiers (1) DM (diabetes mellitus): Qualified Code: E11.9 - Type 2 diabetes mellitus without complications Soco Pickett MD Oct 22, 2016 14:32
[2016-10-22] MEDS: SENNOSIDES SYRUP 8.8 MG/5 ML CUP PO SCH (15:29)
[2016-10-22] MEDS: PARoxetine HCL SUSP 20 MG/10 ML UDC PEG SCH (19:07)
[2016-10-22] MEDS: INSULIN DETEMIR 100 UNITS/ML VIAL SQ SCH (21:16)
[2016-10-22] MEDS: CYCLOBENZAPRINE HCL 10 MG TAB PO PRN (21:17)
[2016-10-23] VITALS (10 sets, daily range): BP systolic 75–136; BP diastolic 67–79; PULSE 82–114; RESP 18–20; TEMP 95.3–98.9; O2SAT 96–100
[2016-10-23] MEDS: FREE WATER TUBE SCH ×7 (04:00→23:13)
[2016-10-23] MEDS: HEPARIN SODIUM - SQ 10,000 UNITS/ML VIAL SQ SCH ×3 (04:58→21:48)
[2016-10-23] MEDS: AMOXICILLIN (TRIHYDRATE) 500 MG CAP PO SCH ×3 (04:58→21:34)
[2016-10-23] MEDS: ACETIC ACID 0.25% SOLN 1000 ML IRR BTL IRRIGATION SCH ×3 (04:59→21:35)
[2016-10-23] MEDS: INSULIN ASPART SUPPLEMENTAL SCALE SQ SCH (07:00)
[2016-10-23] MEDS: ASPIRIN 325 MG TAB TUBE SCH (08:30)
[2016-10-23] MEDS: levETIRAcetam 500 MG/5 ML UDC TUBE SCH ×2 (08:30→21:47)
[2016-10-23] MEDS: POTASSIUM CHLORIDE 25 MEQ EFFERVESCENT TAB TUBE SCH (08:30)
[2016-10-23] MEDS: METOPROLOL TARTRATE 50 MG TAB PO SCH ×2 (08:30→21:34)
[2016-10-23] MEDS: DILTIAZEM HCL 30 MG TAB PEG SCH ×4 (08:30→21:34)
[2016-10-23] MEDS: DOCUSATE SODIUM 100 MG/10 ML UDC PO SCH ×2 (08:31→21:34)
[2016-10-23] MEDS: ARTIFICIAL TEARS OPTH SOLN 15 ML BTL EACH EYE SCH ×2 (08:31→21:37)
[2016-10-23] MEDS: SODIUM CHLORIDE 0.65% NASAL SPRAY 45 ML BTL NASAL SCH ×2 (08:31→21:00)
[2016-10-23] MEDS: KETOCONAZOLE 2% CREAM 15 GM TOPICAL SCH ×2 (08:32→23:13)
[2016-10-23] MEDS: BACITRACIN TOP OINT 15 GM TUBE TOP SCH ×2 (08:32→21:35)
[2016-10-23] MEDS: LACTULOSE SYRUP 20 GM/30 ML CUP PO SCH (08:32)
[2016-10-23] MEDS: NYSTATIN 100,000 U/GM PWD 15 GM BTL TOPICAL SCH ×2 (08:32→21:35)
[2016-10-23] MEDS: PANTOPRAZOLE SODIUM 40 MG VIAL IV PUSH SCH ×2 (10:32→21:36)
--- NOTE | 2016-10-23 13:03 | HHI.PR ---
Subjective Remarks GJ tube got deflated during turning TF on hold Objective Vitals Vital Signs Date Time Temp Pulse Resp B/P Pulse Ox O2 Delivery O2 Flow Rate FiO2 10/23/16 12:14 96.8 94 20 103/68 99 10/23/16 09:23 99 28 10/23/16 08:37 96.6 114 20 75/ 96 10/23/16 08:20 104 10/23/16 04:10 97.7 96 20 136/79 98 10/23/16 00:00 97.8 86 18 111/72 98 10/22/16 20:00 97.8 89 18 109/68 97 10/22/16 20:00 107 10/22/16 18:25 T-piece 6.00 28 10/22/16 16:21 99.4 89 20 122/64 95 10/22/16 13:06 99.6 89 20 105/64 97 I/O 10/22/16 10/22/16 10/22/16 10/23/16 10/23/16 10/23/16 07:00 15:00 23:00 07:00 15:00 23:00 Intake Total 319 ml 409 ml Output Total 1550 ml 500 ml 500 ml 1250 ml Balance -1550 ml -500 ml -181 ml -841 ml Intake Oral 0 ml 0 ml IV Total 0 ml 0 ml Tube Feeding 319 ml 409 ml Output Urine Total 1550 ml 500 ml 500 ml 1200 ml Drainage Total 50 ml # Bowel Movements 1 1 2 2 1 Result Diagram: 10/22/16 1036 10/22/16 1036 Imaging Last Impressions Chest X-Ray 10/18/16 0000 Signed Impressions: Service Date/Time: Tuesday, October 18, 2016 19:17 - CONCLUSION: 1. Minimal right perihilar streakiness consistent with probable atelectasis. 2. Elevation of the right hemidiaphragm. 3. Tracheostomy tube in good position above the geno. Eduardo Valenzuela MD Tube Change 09/09/16 1011 Signed Impressions: Service Date/Time: Friday, September 09, 2016 11:27 - CONCLUSION: Occluded jejunal port of the GJ tube. Uncomplicated gastrojejunostomy tube exchange as above. Jonel Jones Jr., MD Abdomen X-Ray 08/31/16 0000 Signed Impressions: Service Date/Time: Wednesday, August 31, 2016 16:36 - CONCLUSION: 1. No acute findings. Mild constipation. Durga Dotson MD Abdomen/Pelvis CT 04/12/16 0000 Signed Impressions: Service Date/Time: Tuesday, April 12, 2016 20:52 - CONCLUSION: 1. 6.4 cm necrotic mass or abscess in the soft tissues posteriorly just below the sacrum associated with some bony destructive change of the lower most sacrum and coccyx with inflammatory changes extending into the ischiorectal fossa and into the presacral retroperitoneum predominantly on the left side. There is associated fairly marked mural thickening of the anal verge and rectum. 2. There is gastrostomy and Lopez catheter present. Stable abdominal aortic aneurysm. Durga Dotson MD Head Magnetic Resonance Angiography 03/05/16 0000 Signed Impressions: Service Date/Time: Saturday, March 05, 2016 09:26 - CONCLUSION: Persistent high-grade subtotal occlusive stenotic lesions in the distal right vertebral artery and proximal basilar artery with significant improvement in flow and recanalization following initial presentation of thrombosis. Stable interstitial circulation without significant stenosis. 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 There is decreasing restricted diffusion and increasing loss of volume characteristic of a subacute to chronic infarct. No evidence of acute infarct, acute hemorrhage mass or edema. Ernesto Kulkarni MD Head CT 01/16/16 0000 Signed Impressions: Service Date/Time: Saturday, January 16, 2016 10:51 - CONCLUSION: No extensive low density in the brainstem colin more prominent in the right the left extending into the right middle cerebellar peduncle consistent with brainstem infarct nonhemorrhagic acute Wellington West MD Neck Magnetic Resonance Angiography 12/22/15 1445 Signed Impressions: Service Date/Time: Tuesday, December 22, 2015 09:22 - CONCLUSION: Variant origin of the left vertebral artery from the aortic arch. No evidence of carotid stenosis. Glen Zamora MD Head/Brain Mag Res Venography 12/22/15 0000 Signed Impressions: Service Date/Time: Tuesday, December 22, 2015 09:22 - CONCLUSION: Normal MRV. Jonel Jones Jr., MD Objective Remarks pupils equal, anicteric no rigidity, tracheostomy in place lungs- no rales or wheezes regular rhythm abdomen- soft, good bowel sounds, PEG site- no signs of erythema lopez in place, no scrotal swelling sacrum- VAC in place extremities- both feet withdraws to stimulation Procedures 01/02/16 PEG placement 01/02/16 tracheostomy 07/22/2016 Wide excision of sacral skin wound, biopsy of the cavity lining and debridement. 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 Patient is nonverbal. Continue Keppra for seizure prophylaxis. PT/OT signed off as patient is unable to participate. Continue keppra flexeril at night prn 10/13 trial x 10 days Bowel regimen. Stop lactinex. Clogged PEG tube 10/14. resolved. patent PEG. Continue flushing feeding tube to maintain patency- for medicine administration J tube- patent- for feedings - IR consult for GJ tube evaluation 10/23 Chronic respiratory failure: Secondary to CVA. Status post tracheostomy. Continue pulmonary toilet and bronchodilators as needed. Continue trach care, suctioning. Levsin as needed. Atrial fibrillation: Continue rate control with Cardizem and metoprolol. Echocardiogram in November 2015 shows preserved ejection fraction. Coumadin discontinued secondary to bleeding. Continue aspirin and prophylactic heparin dose. History of non-Hodgkin's lymphoma: Status post brain biopsy on December 13 by neurosurgery. Pathology consistent with acute infarct without evidence of lymphoma. Oncology signed off. Diabetes mellitus: Hemoglobin A1c is 7. Continue Levemir. Monitor Accu-Cheks and cover with sliding scale insulin. Decubitus ulcer stage IV: Continue wound care, twice-daily dressing changes.. Wound care recommendations. Continue pressure relief measures including turning and positioning. Patient's family has declined a diverting colostomy. Wound culture growing Klebsiella. Status post wide excision of sacral skin and biopsy of the cavity lining with debridement on 07/22/16. wound VAC changes-- Tues/Frid 2x a week Gastric ulcer, reflux esophagitis: EGD on 07/30/16 showed gastric ulcers. Appreciate GI recommendations. Continue PPI. H&H stable. UTI pseudomonas aeruginosa treated with abx . Repeat Ucx 08/28/16 negative Lopez catheterization- due to immobilization, last changed 10/12. change q 30 days FEN: Continue Nepro tube feeds. Appreciate dietary recommendations. Continue free water flushes. Supplement potassium. DVT prophylaxis: SCDs. DVT px - SCDs. Discharge Planning Difficult placement per CM notes Problem Qualifiers (1) DM (diabetes mellitus): Qualified Code: E11.9 - Type 2 diabetes mellitus without complications Soco Pickett MD Oct 23, 2016 13:03
[2016-10-23] MEDS: SENNOSIDES SYRUP 8.8 MG/5 ML CUP PO SCH (16:00)
--- NOTE | 2016-10-23 17:17 | PD.RAD ---
Post Procedure Progress Note Pre Procedure Diagnosis: (1) Feeding tube dysfunction Post Procedure Diagnosis: (1) Feeding tube dysfunction Procedure Date: Oct 23, 2016 Supervising Radiologist: Bobby Gray Proceduralist/Assist: Priya Cuba, RT(R), Moira Cartagena RT(R)() Anesthesia: Local, Analgesia Plan of Activity Patient to Unit: Nursing Unit Patient Condition: Fair See PACS Report for procedural detail/treatment Feeding Tube Gastro/Jejunostomy (Transgastric J) Exchange [place]: 22 Findings: Balloon port punctured. Debris in J-tubing. Bobby Gray MD Oct 23, 2016 17:17
[2016-10-23] MEDS: INSULIN DETEMIR 100 UNITS/ML VIAL SQ SCH (21:49)
[2016-10-24] VITALS (9 sets, daily range): BP systolic 91–114; BP diastolic 56–68; PULSE 75–97; RESP 18–20; TEMP 95.7–97.7; O2SAT 92–100
[2016-10-24] MEDS: FREE WATER TUBE SCH ×6 (03:20→23:59)
[2016-10-24] MEDS: AMOXICILLIN (TRIHYDRATE) 500 MG CAP PO SCH ×3 (05:54→23:13)
[2016-10-24] MEDS: HEPARIN SODIUM - SQ 10,000 UNITS/ML VIAL SQ SCH ×3 (05:54→23:13)
[2016-10-24] MEDS: INSULIN ASPART SUPPLEMENTAL SCALE SQ SCH (05:55)
[2016-10-24] MEDS: ACETIC ACID 0.25% SOLN 1000 ML IRR BTL IRRIGATION SCH ×3 (05:55→23:17)
[2016-10-24] MEDS: SODIUM CHLORIDE 0.65% NASAL SPRAY 45 ML BTL NASAL SCH ×2 (08:54→23:17)
[2016-10-24] MEDS: PANTOPRAZOLE SODIUM 40 MG VIAL IV PUSH SCH ×2 (08:54→23:12)
[2016-10-24] MEDS: ASPIRIN 325 MG TAB TUBE SCH (08:54)
[2016-10-24] MEDS: DOCUSATE SODIUM 100 MG/10 ML UDC PO SCH ×2 (08:54→23:15)
[2016-10-24] MEDS: ARTIFICIAL TEARS OPTH SOLN 15 ML BTL EACH EYE SCH ×2 (08:54→23:17)
[2016-10-24] MEDS: LACTULOSE SYRUP 20 GM/30 ML CUP PO SCH (08:54)
[2016-10-24] MEDS: NYSTATIN 100,000 U/GM PWD 15 GM BTL TOPICAL SCH ×2 (08:54→23:18)
[2016-10-24] MEDS: BACITRACIN TOP OINT 15 GM TUBE TOP SCH ×2 (08:54→23:18)
[2016-10-24] MEDS: KETOCONAZOLE 2% CREAM 15 GM TOPICAL SCH ×2 (08:54→21:00)
[2016-10-24] MEDS: POTASSIUM CHLORIDE 25 MEQ EFFERVESCENT TAB TUBE SCH (08:54)
[2016-10-24] MEDS: levETIRAcetam 500 MG/5 ML UDC TUBE SCH ×2 (08:54→23:15)
[2016-10-24] MEDS: DILTIAZEM HCL 30 MG TAB PEG SCH ×4 (08:58→23:14)
[2016-10-24] MEDS: METOPROLOL TARTRATE 50 MG TAB PO SCH ×2 (08:58→23:13)
--- NOTE | 2016-10-24 11:19 | HHI.PR ---
Subjective Remarks small mucus plug dislodged this am during cough sats good tolerating TF G=J tube was changed 10/23- functioning well Objective Vitals Vital Signs Date Time Temp Pulse Resp B/P Pulse Ox O2 Delivery O2 Flow Rate FiO2 10/24/16 10:12 100 T-piece 28 10/24/16 07:44 96.5 97 18 100/68 96 10/24/16 04:00 97.0 92 19 107/68 92 10/24/16 00:00 96.9 75 18 109/65 100 10/23/16 21:18 97 T-piece 28 10/23/16 20:00 83 10/23/16 20:00 97.2 90 18 130/78 100 10/23/16 17:45 98.9 90 18 114/71 97 10/23/16 15:00 95.3 82 20 105/67 99 10/23/16 12:14 96.8 94 20 103/68 99 I/O 10/23/16 10/23/16 10/23/16 10/24/16 10/24/16 10/24/16 07:00 15:00 23:00 07:00 15:00 23:00 Intake Total 409 ml 195 ml 120 ml 1300 ml Output Total 1250 ml 350 ml 550 ml 150 ml Balance -841 ml -155 ml -430 ml 1150 ml Intake Oral 0 ml 120 ml IV Total 0 ml Tube Feeding 409 ml 195 ml 600 ml Tube Irrigant 700 ml Output Urine Total 1200 ml 350 ml 550 ml 150 ml Drainage Total 50 ml # Bowel Movements 2 1 1 Result Diagram: 10/22/16 1036 10/22/16 1036 Imaging Last Impressions Chest X-Ray 10/18/16 0000 Signed Impressions: Service Date/Time: Tuesday, October 18, 2016 19:17 - CONCLUSION: 1. Minimal right perihilar streakiness consistent with probable atelectasis. 2. Elevation of the right hemidiaphragm. 3. Tracheostomy tube in good position above the geno. Eduardo Valenzuela MD Tube Change 09/09/16 1011 Signed Impressions: Service Date/Time: Friday, September 09, 2016 11:27 - CONCLUSION: Occluded jejunal port of the GJ tube. Uncomplicated gastrojejunostomy tube exchange as above. Jonel Jones Jr., MD Abdomen X-Ray 08/31/16 0000 Signed Impressions: Service Date/Time: Wednesday, August 31, 2016 16:36 - CONCLUSION: 1. No acute findings. Mild constipation. Durga Dotson MD Abdomen/Pelvis CT 04/12/16 0000 Signed Impressions: Service Date/Time: Tuesday, April 12, 2016 20:52 - CONCLUSION: 1. 6.4 cm necrotic mass or abscess in the soft tissues posteriorly just below the sacrum associated with some bony destructive change of the lower most sacrum and coccyx with inflammatory changes extending into the ischiorectal fossa and into the presacral retroperitoneum predominantly on the left side. There is associated fairly marked mural thickening of the anal verge and rectum. 2. There is gastrostomy and Lopez catheter present. Stable abdominal aortic aneurysm. Durga Dotson MD Head Magnetic Resonance Angiography 03/05/16 0000 Signed Impressions: Service Date/Time: Saturday, March 05, 2016 09:26 - CONCLUSION: Persistent high-grade subtotal occlusive stenotic lesions in the distal right vertebral artery and proximal basilar artery with significant improvement in flow and recanalization following initial presentation of thrombosis. Stable interstitial circulation without significant stenosis. 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 There is decreasing restricted diffusion and increasing loss of volume characteristic of a subacute to chronic infarct. No evidence of acute infarct, acute hemorrhage mass or edema. Ernesto Kulkarni MD Head CT 01/16/16 0000 Signed Impressions: Service Date/Time: Saturday, January 16, 2016 10:51 - CONCLUSION: No extensive low density in the brainstem colin more prominent in the right the left extending into the right middle cerebellar peduncle consistent with brainstem infarct nonhemorrhagic acute Wellington West MD Neck Magnetic Resonance Angiography 12/22/15 1445 Signed Impressions: Service Date/Time: Tuesday, December 22, 2015 09:22 - CONCLUSION: Variant origin of the left vertebral artery from the aortic arch. No evidence of carotid stenosis. Glen Zamora MD Head/Brain Mag Res Venography 12/22/15 0000 Signed Impressions: Service Date/Time: Tuesday, December 22, 2015 09:22 - CONCLUSION: Normal MRV. Jonel Jones Jr., MD Objective Remarks pupils equal, anicteric no rigidity, tracheostomy in place lungs- no rales or wheezes regular rhythm abdomen- soft, good bowel sounds, PEG site- no signs of erythema lopez in place, no scrotal swelling sacrum- VAC in place extremities- both feet withdraws to stimulation Procedures 01/02/16 PEG placement 01/02/16 tracheostomy 07/22/2016 Wide excision of sacral skin wound, biopsy of the cavity lining and debridement. 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 Patient is nonverbal. Continue Keppra for seizure prophylaxis. PT/OT signed off as patient is unable to participate. Continue keppra flexeril at night prn 10/13 trial x 10 days Bowel regimen. Stop lactinex. Clogged PEG tube 10/14, 10/23. resolved. patent PEG. Continue flushing feeding tube to maintain patency- for medicine administration G-J tube replaced 10/23. d/w staff- GJ tube care. flushing to maintain patency Chronic respiratory failure: Secondary to CVA. Status post tracheostomy. Continue pulmonary toilet and bronchodilators as needed. Continue trach care, suctioning. Levsin as needed. Atrial fibrillation: Continue rate control with Cardizem and metoprolol. Echocardiogram in November 2015 shows preserved ejection fraction. Coumadin discontinued secondary to bleeding. Continue aspirin and prophylactic heparin dose. History of non-Hodgkin's lymphoma: Status post brain biopsy on December 13 by neurosurgery. Pathology consistent with acute infarct without evidence of lymphoma. Oncology signed off. Diabetes mellitus: Hemoglobin A1c is 7. Continue Levemir. Monitor Accu-Cheks and cover with sliding scale insulin. Decubitus ulcer stage IV: Continue wound care, twice-daily dressing changes.. Wound care recommendations. Continue pressure relief measures including turning and positioning. Patient's family has declined a diverting colostomy. Wound culture growing Klebsiella. Status post wide excision of sacral skin and biopsy of the cavity lining with debridement on 07/22/16. wound VAC changes-- Tues/Frid 2x a week Gastric ulcer, reflux esophagitis: EGD on 07/30/16 showed gastric ulcers. Appreciate GI recommendations. Continue PPI. H&H stable. UTI pseudomonas aeruginosa treated with abx . Repeat Ucx 08/28/16 negative Lopez catheterization- due to immobilization, last changed 10/12. change q 30 days FEN: Continue Nepro tube feeds. Appreciate dietary recommendations. Continue free water flushes. Supplement potassium. DVT prophylaxis: SCDs. DVT px - SCDs. Discharge Planning Difficult placement per CM notes Problem Qualifiers (1) DM (diabetes mellitus): Qualified Code: E11.9 - Type 2 diabetes mellitus without complications Soco Pickett MD Oct 24, 2016 11:19
[2016-10-24] MEDS: ACETAMINOPHEN/HYDROcodone 325 MG/5 MG TAB PO PRN ×2 (13:01→23:14)
[2016-10-24] MEDS: SENNOSIDES SYRUP 8.8 MG/5 ML CUP PO SCH (16:44)
--- NOTE | 2016-10-24 17:47 | HHI.PR ---
Subjective Remarks opens eyes on o2 , o2 SAT 96 on T PIECE Objective Vital Signs Date Time Temp Pulse Resp B/P Pulse Ox O2 Delivery O2 Flow Rate FiO2 10/24/16 17:36 99 T-piece 6.00 10/24/16 16:40 97.4 83 18 97/60 99 10/24/16 12:10 95.7 81 18 91/56 100 10/24/16 11:57 90 10/24/16 10:12 100 T-piece 28 10/24/16 07:44 96.5 97 18 100/68 96 10/24/16 04:00 97.0 92 19 107/68 92 10/24/16 00:00 96.9 75 18 109/65 100 10/23/16 21:18 97 T-piece 28 10/23/16 20:00 83 10/23/16 20:00 97.2 90 18 130/78 100 I/O 10/23/16 10/23/16 10/23/16 10/24/16 10/24/16 10/24/16 07:00 15:00 23:00 07:00 15:00 23:00 Intake Total 409 ml 195 ml 120 ml 1300 ml Output Total 1250 ml 350 ml 550 ml 150 ml 425 ml Balance -841 ml -155 ml -430 ml 1150 ml -425 ml Intake Oral 0 ml 120 ml IV Total 0 ml Tube Feeding 409 ml 195 ml 600 ml Tube Irrigant 700 ml Output Urine Total 1200 ml 350 ml 550 ml 150 ml 425 ml Drainage Total 50 ml # Bowel Movements 2 1 1 Result Diagram: 10/22/16 1036 10/22/16 1036 Procedures 01/02/16 PEG placement 01/02/16 tracheostomy 07/22/2016 Wide excision of sacral skin wound, biopsy of the cavity lining and debridement. PEG tube replacement 07/29/16 Objective Remarks GENERAL: SKIN: Warm and dry. HEAD: Atraumatic. Normocephalic. EYES: Pupils equal and round. No scleral icterus. No injection or drainage. ENT: No nasal bleeding or discharge. Mucous membranes pink and moist. NECK: Trachea midline. No JVD. TRACH. [place] CARDIOVASCULAR: Regular rate and rhythm. RESPIRATORY: No accessory muscle use. Clear to auscultation. Breath sounds equal bilaterally. GASTROINTESTINAL: Abdomen soft, non-tender, nondistended. Hepatic and splenic margins not palpable. MUSCULOSKELETAL: Extremities without clubbing, cyanosis, or edema. No obvious deformities. NEUROLOGICAL: Awake and alert. No obvious cranial nerve deficits. Motor grossly within normal limits. Five out of 5 muscle strength in the arms and legs. Normal speech. PSYCHIATRIC: Appropriate mood and affect; insight and judgment normal. Assessment and Plan Assessment and Plan impression respiratory failure CVA S/P TRACHEOSTOMY PLAN O2 NEEDED PULM. TOILET BMP , CBC Brandon Taylor MD Oct 24, 2016 17:47
[2016-10-24] MEDS: PARoxetine HCL SUSP 20 MG/10 ML UDC PEG SCH (18:35)
[2016-10-24] MEDS: INSULIN DETEMIR 100 UNITS/ML VIAL SQ SCH (23:16)
[2016-10-25] VITALS (10 sets, daily range): BP systolic 98–130; BP diastolic 60–72; PULSE 79–100; RESP 18–20; TEMP 97.5–101.5; O2SAT 95–100
[2016-10-25] MEDS: FREE WATER TUBE SCH ×6 (04:00→23:46)
[2016-10-25] MEDS: HEPARIN SODIUM - SQ 10,000 UNITS/ML VIAL SQ SCH ×3 (06:47→21:12)
[2016-10-25] MEDS: INSULIN ASPART SUPPLEMENTAL SCALE SQ SCH (06:48)
[2016-10-25] MEDS: ACETIC ACID 0.25% SOLN 1000 ML IRR BTL IRRIGATION SCH ×3 (06:48→21:16)
[2016-10-25] MEDS: AMOXICILLIN (TRIHYDRATE) 500 MG CAP PO SCH ×3 (06:48→21:12)
[2016-10-25] MEDS: ACETAMINOPHEN/HYDROcodone 325 MG/5 MG TAB PO PRN ×3 (06:48→21:13)
[2016-10-25] MEDS: LACTULOSE SYRUP 20 GM/30 ML CUP PO SCH (08:26)
[2016-10-25] MEDS: METOPROLOL TARTRATE 50 MG TAB PO SCH ×2 (08:26→21:12)
[2016-10-25] MEDS: DILTIAZEM HCL 30 MG TAB PEG SCH ×4 (08:26→21:00)
[2016-10-25] MEDS: ARTIFICIAL TEARS OPTH SOLN 15 ML BTL EACH EYE SCH ×2 (08:27→21:16)
[2016-10-25] MEDS: POTASSIUM CHLORIDE 25 MEQ EFFERVESCENT TAB TUBE SCH (08:27)
[2016-10-25] MEDS: BACITRACIN TOP OINT 15 GM TUBE TOP SCH ×2 (08:27→21:15)
[2016-10-25] MEDS: levETIRAcetam 500 MG/5 ML UDC TUBE SCH ×2 (08:27→21:12)
[2016-10-25] MEDS: DOCUSATE SODIUM 100 MG/10 ML UDC PO SCH ×2 (08:28→21:12)
[2016-10-25] MEDS: NYSTATIN 100,000 U/GM PWD 15 GM BTL TOPICAL SCH ×2 (08:28→21:15)
[2016-10-25] MEDS: ASPIRIN 325 MG TAB TUBE SCH (08:28)
[2016-10-25] MEDS: KETOCONAZOLE 2% CREAM 15 GM TOPICAL SCH ×2 (08:28→21:00)
[2016-10-25] MEDS: SODIUM CHLORIDE 0.65% NASAL SPRAY 45 ML BTL NASAL SCH ×2 (08:28→21:15)
--- NOTE | 2016-10-25 08:48 | HHI.PR ---
Subjective Remarks opens eyes on o2 , o2 SAT 96 on T PIECE Objective Vital Signs Date Time Temp Pulse Resp B/P Pulse Ox O2 Delivery O2 Flow Rate FiO2 10/25/16 08:28 99.1 86 20 101/60 98 10/25/16 04:00 98.6 81 18 110/72 98 10/25/16 02:28 100 T-Piece 6.00 28 10/25/16 01:56 79 10/25/16 00:58 18 10/25/16 00:00 98.9 83 18 103/61 98 10/24/16 21:45 100 T-Piece 28 Humidified 10/24/16 20:00 97.7 86 20 114/64 99 10/24/16 17:36 99 T-piece 6.00 10/24/16 16:40 97.4 83 18 97/60 99 10/24/16 12:10 95.7 81 18 91/56 100 10/24/16 11:57 90 10/24/16 10:12 100 T-piece 28 I/O 10/24/16 10/24/16 10/24/16 10/25/16 10/25/16 10/25/16 07:00 15:00 23:00 07:00 15:00 23:00 Intake Total 1300 ml Output Total 150 ml 425 ml 200 ml 1000 ml Balance 1150 ml -425 ml -200 ml -1000 ml Tube Feeding 600 ml Tube Irrigant 700 ml Output Urine Total 150 ml 425 ml 200 ml 1000 ml # Bowel Movements 1 1 1 Result Diagram: 10/22/16 1036 10/22/16 1036 Procedures 01/02/16 PEG placement 01/02/16 tracheostomy 07/22/2016 Wide excision of sacral skin wound, biopsy of the cavity lining and debridement. PEG tube replacement 07/29/16 Objective Remarks GENERAL: SKIN: Warm and dry. HEAD: Atraumatic. Normocephalic. EYES: Pupils equal and round. No scleral icterus. No injection or drainage. ENT: No nasal bleeding or discharge. Mucous membranes pink and moist. NECK: Trachea midline. No JVD. TRACH. [place] CARDIOVASCULAR: Regular rate and rhythm. RESPIRATORY: No accessory muscle use. Clear to auscultation. Breath sounds equal bilaterally. GASTROINTESTINAL: Abdomen soft, non-tender, nondistended. Hepatic and splenic margins not palpable. MUSCULOSKELETAL: Extremities without clubbing, cyanosis, or edema. No obvious deformities. NEUROLOGICAL: Awake and alert. No obvious cranial nerve deficits. Motor grossly within normal limits. Five out of 5 muscle strength in the arms and legs. Normal speech. PSYCHIATRIC: Appropriate mood and affect; insight and judgment normal. Assessment and Plan Assessment and Plan impression respiratory failure CVA S/P TRACHEOSTOMY PLAN O2 NEEDED PULM. TOILET Brandon Taylor MD Oct 25, 2016 08:48
[2016-10-25] MEDS: PANTOPRAZOLE SODIUM 40 MG VIAL IV PUSH SCH ×2 (10:04→21:30)
--- NOTE | 2016-10-25 10:14 | HHI.PR ---
Subjective Remarks eyes open-made eye contact Objective Vitals Vital Signs Date Time Temp Pulse Resp B/P Pulse Ox O2 Delivery O2 Flow Rate FiO2 10/25/16 08:28 99.1 86 20 101/60 98 10/25/16 04:00 98.6 81 18 110/72 98 10/25/16 02:28 100 T-Piece 6.00 28 10/25/16 01:56 79 10/25/16 00:58 18 10/25/16 00:00 98.9 83 18 103/61 98 10/24/16 21:45 100 T-Piece 28 Humidified 10/24/16 20:00 97.7 86 20 114/64 99 10/24/16 17:36 99 T-piece 6.00 10/24/16 16:40 97.4 83 18 97/60 99 10/24/16 12:10 95.7 81 18 91/56 100 10/24/16 11:57 90 I/O 10/24/16 10/24/16 10/24/16 10/25/16 10/25/16 10/25/16 07:00 15:00 23:00 07:00 15:00 23:00 Intake Total 1300 ml Output Total 150 ml 425 ml 200 ml 1000 ml Balance 1150 ml -425 ml -200 ml -1000 ml Tube Feeding 600 ml Tube Irrigant 700 ml Output Urine Total 150 ml 425 ml 200 ml 1000 ml # Bowel Movements 1 1 1 Result Diagram: 10/22/16 1036 10/22/16 1036 Imaging Last Impressions Chest X-Ray 10/18/16 0000 Signed Impressions: Service Date/Time: Tuesday, October 18, 2016 19:17 - CONCLUSION: 1. Minimal right perihilar streakiness consistent with probable atelectasis. 2. Elevation of the right hemidiaphragm. 3. Tracheostomy tube in good position above the geno. Eduardo Valenzuela MD Tube Change 09/09/16 1011 Signed Impressions: Service Date/Time: Friday, September 09, 2016 11:27 - CONCLUSION: Occluded jejunal port of the GJ tube. Uncomplicated gastrojejunostomy tube exchange as above. Jonel Jones Jr., MD Abdomen X-Ray 08/31/16 0000 Signed Impressions: Service Date/Time: Wednesday, August 31, 2016 16:36 - CONCLUSION: 1. No acute findings. Mild constipation. Durga Dotson MD Abdomen/Pelvis CT 04/12/16 0000 Signed Impressions: Service Date/Time: Tuesday, April 12, 2016 20:52 - CONCLUSION: 1. 6.4 cm necrotic mass or abscess in the soft tissues posteriorly just below the sacrum associated with some bony destructive change of the lower most sacrum and coccyx with inflammatory changes extending into the ischiorectal fossa and into the presacral retroperitoneum predominantly on the left side. There is associated fairly marked mural thickening of the anal verge and rectum. 2. There is gastrostomy and Lopez catheter present. Stable abdominal aortic aneurysm. Durga Dotson MD Head Magnetic Resonance Angiography 03/05/16 0000 Signed Impressions: Service Date/Time: Saturday, March 05, 2016 09:26 - CONCLUSION: Persistent high-grade subtotal occlusive stenotic lesions in the distal right vertebral artery and proximal basilar artery with significant improvement in flow and recanalization following initial presentation of thrombosis. Stable interstitial circulation without significant stenosis. 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 There is decreasing restricted diffusion and increasing loss of volume characteristic of a subacute to chronic infarct. No evidence of acute infarct, acute hemorrhage mass or edema. Ernesto Kulkarni MD Head CT 01/16/16 0000 Signed Impressions: Service Date/Time: Saturday, January 16, 2016 10:51 - CONCLUSION: No extensive low density in the brainstem colin more prominent in the right the left extending into the right middle cerebellar peduncle consistent with brainstem infarct nonhemorrhagic acute Wellington West MD Neck Magnetic Resonance Angiography 12/22/15 1445 Signed Impressions: Service Date/Time: Tuesday, December 22, 2015 09:22 - CONCLUSION: Variant origin of the left vertebral artery from the aortic arch. No evidence of carotid stenosis. Glen Zamora MD Head/Brain Mag Res Venography 12/22/15 0000 Signed Impressions: Service Date/Time: Tuesday, December 22, 2015 09:22 - CONCLUSION: Normal MRV. Jonel Jones Jr., MD Objective Remarks pupils equal, anicteric no rigidity, tracheostomy in place lungs- no rales or wheezes regular rhythm abdomen- soft, good bowel sounds, PEG site- no signs of erythema lopez in place, no scrotal swelling sacrum- VAC in place- changed today 10/25 extremities- both feet/toes withdraws to stimulation Procedures 01/02/16 PEG placement 01/02/16 tracheostomy 07/22/2016 Wide excision of sacral skin wound, biopsy of the cavity lining and debridement. 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 Patient is nonverbal. Continue Keppra for seizure prophylaxis. PT/OT signed off as patient is unable to participate. Continue keppra flexeril at night prn 10/13 trial x 10 days Bowel regimen. Stop lactinex. Clogged PEG tube 10/14, 10/23. resolved. patent PEG. Continue flushing feeding tube to maintain patency- for medicine administration G-J tube replaced 10/23. d/w staff- GJ tube care. flushing to maintain patency Chronic respiratory failure: Secondary to CVA. Status post tracheostomy. Continue pulmonary toilet and bronchodilators as needed. Continue trach care, suctioning. Levsin as needed. Atrial fibrillation: Continue rate control with Cardizem and metoprolol. Echocardiogram in November 2015 shows preserved ejection fraction. Coumadin discontinued secondary to bleeding. Continue aspirin and prophylactic heparin dose. History of non-Hodgkin's lymphoma: Status post brain biopsy on December 13 by neurosurgery. Pathology consistent with acute infarct without evidence of lymphoma. Oncology signed off. Diabetes mellitus: Hemoglobin A1c is 7. Continue Levemir. Monitor Accu-Cheks and cover with sliding scale insulin. Decubitus ulcer stage IV: Continue wound care, twice-daily dressing changes.. Wound care recommendations. Continue pressure relief measures including turning and positioning. Patient's family has declined a diverting colostomy. Wound culture growing Klebsiella. Status post wide excision of sacral skin and biopsy of the cavity lining with debridement on 07/22/16. wound VAC changes-- Tues/Frid 2x a week Gastric ulcer, reflux esophagitis: EGD on 07/30/16 showed gastric ulcers. Appreciate GI recommendations. Continue PPI. H&H stable. UTI pseudomonas aeruginosa treated with abx . Repeat Ucx 08/28/16 negative Lopez catheterization- due to immobilization, last changed 10/12. change q 30 days FEN: Continue Nepro tube feeds. Appreciate dietary recommendations. Continue free water flushes. Supplement potassium. DVT prophylaxis: SCDs. DVT px - SCDs. Discharge Planning Difficult placement per CM notes Problem Qualifiers (1) DM (diabetes mellitus): Qualified Code: E11.9 - Type 2 diabetes mellitus without complications Soco Pickett MD Oct 25, 2016 10:14
--- NOTE | 2016-10-25 10:58 | RADRPT ---
EXAM DATE/TIME: 10/23/2016 16:34 [facility] COMPARISON: CHANGE OF GJ-TUBE CATHETER, September 09, 2016, 11:27. INDICATIONS : Patient is in need of an exchange of existing transgastric G-J tube due to balloon malfunction. MEDICAL HISTORY : History of CVA, HTN, AFIB, non Hodgkin's lymphoma, DM, gastric ulcers, esoophagitis, sacral ulcers. SURGICAL HISTORY : History of sacral biopsy, right occipital Adarsh hole brain biopsy, left arm surgery, G-J tube, tracheo stomy. ENCOUNTER: Subsequent ACUITY: 7 - 11 months PAIN SCORE: 0/10 FLUORO TIME: 3.7 minutes IMAGE SERIES: 2 CONTRAST: 20 cc Omnipaque (iohexol) 350 MEDICATION(S): 1.) 100 mcg fentanyl (Sublimaze) IV DEVICE(S): 1.) 22 [place] Transgastric tube PROCEDURE : 1. Fluoroscopically guided gastrojejunostomy tube exchange. 2. Conscious sedation with continuous EKG and oximetry monitoring. The risks, benefits and alternatives to the procedure were explained and verbal and written consent w as obtained. The site was prepped in sterile fashion. Full sterile technique was used, including ca p, mask, sterile gloves and gown and a large sterile sheet. Hand hygiene and 2% chlorhexidine and/or betadine/alcohol prep was utilized per protocol for cutaneous antisepsis. The skin and subcutaneous tissues were infiltrated with local anesthetic solution. With fluoroscopic guidance a guidewire was passed through the previous gastrojejunostomy tube and a f resh tube was placed over the guidewire. The balloon was inflated with appropriate volume of saline. Injection of positive contrast demonstrates good position of the gastric and jejunal lumens of the tube. Conscious sedation was performed with the prescribed dosages and duration as above in the presence of an independent trained radiology nurse to assist in the monitoring of the patient. EKG and oximetry remained stable throughout the procedure. The patient tolerated the procedure well and there were n o complications. The patient was sent to post anesthesia recovery in stable condition. CONCLUSION: Uncomplicated gastrojejunostomy tube exchange as above. Existing tube was patent with some luminal narrowing. The balloon port was damaged and leaking, however. Bobby Gray MD on October 25, 2016 at 10:54 Board Certified Radiologist. This report was verified electronically.
[2016-10-25] MEDS: SENNOSIDES SYRUP 8.8 MG/5 ML CUP PO SCH (15:13)
[2016-10-25] MEDS: ACETAMINOPHEN 650 MG/20.3 ML UDC TUBE PRN (15:13)
[2016-10-25] MEDS: PARoxetine HCL SUSP 20 MG/10 ML UDC PEG SCH (18:19)
[2016-10-25] MEDS: INSULIN DETEMIR 100 UNITS/ML VIAL SQ SCH (21:13)
[2016-10-26] VITALS (10 sets, daily range): BP systolic 98–126; BP diastolic 62–72; PULSE 80–100; RESP 18–20; TEMP 95.6–98.6; O2SAT 98–100
[2016-10-26] MEDS: FREE WATER TUBE SCH ×5 (04:00→20:00)
[2016-10-26] MEDS: AMOXICILLIN (TRIHYDRATE) 500 MG CAP PO SCH ×3 (05:27→21:38)
[2016-10-26] MEDS: ACETIC ACID 0.25% SOLN 1000 ML IRR BTL IRRIGATION SCH ×3 (05:27→21:44)
[2016-10-26] MEDS: HEPARIN SODIUM - SQ 10,000 UNITS/ML VIAL SQ SCH ×3 (05:28→21:41)
[2016-10-26] MEDS: ACETAMINOPHEN/HYDROcodone 325 MG/5 MG TAB PO PRN ×2 (05:37→18:15)
[2016-10-26] MEDS: INSULIN ASPART SUPPLEMENTAL SCALE SQ SCH (06:01)
[2016-10-26] MEDS: LACTULOSE SYRUP 20 GM/30 ML CUP PO SCH (07:42)
[2016-10-26] MEDS: DOCUSATE SODIUM 100 MG/10 ML UDC PO SCH ×2 (07:42→21:41)
[2016-10-26] MEDS: levETIRAcetam 500 MG/5 ML UDC TUBE SCH ×2 (07:43→21:40)
[2016-10-26] MEDS: PANTOPRAZOLE SODIUM 40 MG VIAL IV PUSH SCH ×2 (07:43→21:41)
[2016-10-26] MEDS: POTASSIUM CHLORIDE 25 MEQ EFFERVESCENT TAB TUBE SCH (07:44)
[2016-10-26] MEDS: ASPIRIN 325 MG TAB TUBE SCH (07:44)
[2016-10-26] MEDS: METOPROLOL TARTRATE 50 MG TAB PO SCH ×2 (07:49→21:41)
[2016-10-26] MEDS: DILTIAZEM HCL 30 MG TAB PEG SCH ×4 (07:50→21:41)
[2016-10-26] MEDS: ARTIFICIAL TEARS OPTH SOLN 15 ML BTL EACH EYE SCH ×2 (07:50→21:00)
[2016-10-26] MEDS: SODIUM CHLORIDE 0.65% NASAL SPRAY 45 ML BTL NASAL SCH ×2 (07:50→21:00)
[2016-10-26] MEDS: NYSTATIN 100,000 U/GM PWD 15 GM BTL TOPICAL SCH ×2 (07:51→21:41)
[2016-10-26] MEDS: KETOCONAZOLE 2% CREAM 15 GM TOPICAL SCH ×2 (07:51→21:00)
[2016-10-26] MEDS: BACITRACIN TOP OINT 15 GM TUBE TOP SCH ×2 (07:51→21:42)
[2016-10-26] MEDS: SENNOSIDES SYRUP 8.8 MG/5 ML CUP PO SCH (15:11)
[2016-10-26] MEDS: NITROFURANTOIN MONOHYD MACROCR 100 MG CAP PO SCH ×2 (15:11→18:01)
[2016-10-26] MEDS: PARoxetine HCL SUSP 20 MG/10 ML UDC PEG SCH (18:01)
--- NOTE | 2016-10-26 18:07 | HHI.PR ---
Subjective Remarks Patient is non-verbal. Unable to acquire history from the patient. is present and reports constipation. Objective Vital Signs Date Time Temp Pulse Resp B/P Pulse Ox O2 Delivery O2 Flow Rate FiO2 10/26/16 16:00 97.4 86 20 126/72 98 10/26/16 12:00 97.3 86 20 123/72 98 10/26/16 09:55 80 10/26/16 08:00 95.6 85 20 100/65 100 10/26/16 07:14 19 10/26/16 05:15 97.5 84 19 98/65 98 10/26/16 05:08 100 10/26/16 00:37 98.6 82 19 101/62 100 10/25/16 20:43 97.5 95 19 98/61 95 10/25/16 20:15 100 T-Piece 28 Humidified I/O 10/25/16 10/25/16 10/25/16 10/26/16 10/26/16 10/26/16 07:00 15:00 23:00 07:00 15:00 23:00 Intake Total 1600 ml Output Total 1000 ml 1950 ml 800 ml Balance -1000 ml -1950 ml 800 ml Tube Feeding 1000 ml Other 600 ml Output Urine Total 1000 ml 1950 ml 800 ml # Bowel Movements 1 1 Result Diagram: 10/22/16 1036 10/22/16 1036 Imaging Last Impressions Tube Change 10/23/16 0000 Signed Impressions: Service Date/Time: Sunday, October 23, 2016 16:34 - CONCLUSION: Uncomplicated gastrojejunostomy tube exchange as above. Existing tube was patent with some luminal narrowing. The balloon port was damaged and leaking, however. Bobby Gray MD Chest X-Ray 10/18/16 0000 Signed Impressions: Service Date/Time: Tuesday, October 18, 2016 19:17 - CONCLUSION: 1. Minimal right perihilar streakiness consistent with probable atelectasis. 2. Elevation of the right hemidiaphragm. 3. Tracheostomy tube in good position above the geno. Eduardo Valenzuela MD Abdomen X-Ray 08/31/16 0000 Signed Impressions: Service Date/Time: Wednesday, August 31, 2016 16:36 - CONCLUSION: 1. No acute findings. Mild constipation. Durga Dotson MD Abdomen/Pelvis CT 04/12/16 0000 Signed Impressions: Service Date/Time: Tuesday, April 12, 2016 20:52 - CONCLUSION: 1. 6.4 cm necrotic mass or abscess in the soft tissues posteriorly just below the sacrum associated with some bony destructive change of the lower most sacrum and coccyx with inflammatory changes extending into the ischiorectal fossa and into the presacral retroperitoneum predominantly on the left side. There is associated fairly marked mural thickening of the anal verge and rectum. 2. There is gastrostomy and Arevalo catheter present. Stable abdominal aortic aneurysm. Durga Dotson MD Head Magnetic Resonance Angiography 03/05/16 0000 Signed Impressions: Service Date/Time: Saturday, March 05, 2016 09:26 - CONCLUSION: Persistent high-grade subtotal occlusive stenotic lesions in the distal right vertebral artery and proximal basilar artery with significant improvement in flow and recanalization following initial presentation of thrombosis. Stable interstitial circulation without significant stenosis. 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 There is decreasing restricted diffusion and increasing loss of volume characteristic of a subacute to chronic infarct. No evidence of acute infarct, acute hemorrhage mass or edema. Ernesto Kulkarni MD Head CT 01/16/16 0000 Signed Impressions: Service Date/Time: Saturday, January 16, 2016 10:51 - CONCLUSION: No extensive low density in the brainstem colin more prominent in the right the left extending into the right middle cerebellar peduncle consistent with brainstem infarct nonhemorrhagic acute Wellington West MD Neck Magnetic Resonance Angiography 12/22/15 1445 Signed Impressions: Service Date/Time: Tuesday, December 22, 2015 09:22 - CONCLUSION: Variant origin of the left vertebral artery from the aortic arch. No evidence of carotid stenosis. Glen Zamora MD Head/Brain Mag Res Venography 12/22/15 0000 Signed Impressions: Service Date/Time: Tuesday, December 22, 2015 09:22 - CONCLUSION: Normal MRV. Jonel Jones Jr., MD Procedures 01/02/16 PEG placement 01/02/16 tracheostomy 07/22/2016 Wide excision of sacral skin wound, biopsy of the cavity lining and debridement. PEG tube replacement 07/29/16 Objective Remarks GENERAL: NAD, AOx0 SKIN: Warm and dry. HEAD: Normocephalic. EYES: No scleral icterus. No injection or drainage. NECK: Supple, tracheostomy in place and patent CARDIOVASCULAR: Regular rate and rhythm without murmurs, gallops, or rubs. RESPIRATORY: Breath sounds equal bilaterally. No accessory muscle use. GASTROINTESTINAL: Abdomen soft, non-tender, nondistended. MUSCULOSKELETAL: No cyanosis, or edema. Medications and IVs Administered Medications Medications (Trade) Dose Ordered Sig/Junior Route PRN Reason Start Time Stop Time Status Last Admin Dose Admin IV Flush (NS Flush) 2 ml UNSCH PRN IVF FLUSH AFTER USING IV ACCESS 12/21/15 06:00 09/28/16 21:18 Levetriacetam (Keppra Liq) 500 mg Q12HR TUBE 12/27/15 21:00 10/26/16 07:43 Acetaminophen (Tylenol 650 Mg/ 20 ml Liq) 650 mg Q6H PRN TUBE TEMP >100.4 12/30/15 15:15 10/25/16 15:13 Nystatin (Mycostatin Powder) 1 applic Q12HR TOPICAL 01/08/16 21:00 10/26/16 07:51 Acetic Acid (Acetic Acid 0.25% Irr Btl) 10 ml Q8HR IRRIGATION 02/05/16 16:00 10/26/16 13:04 Paroxetine HCl (Paxil Liq) 20 mg DAILY@1900 PEG 03/12/16 19:00 10/25/16 18:19 Insulin Detemir (Levemir Inj) 35 units HS SQ 03/24/16 21:00 10/25/16 21:13 Hyoscyamine Sulfate (Levsin) 0.25 mg Q4H PRN G-TUBE INCREASED SECRETIONS 04/11/16 10:30 08/31/16 05:02 Ondansetron HCl (Zofran Inj) 4 mg Q6HR PRN IV PUSH nausea/vomiting 04/14/16 19:45 08/10/16 10:16 Water (Free Water) 200 ml Q4HR TUBE 04/16/16 12:00 10/26/16 15:12 Potassium Bicarb/ Potassium Chloride (K-Lyte Cl Eff) 25 meq DAILY TUBE 05/28/16 09:00 10/26/16 07:44 Aspirin (Aspirin) 325 mg DAILY TUBE 05/27/16 11:40 10/26/16 07:44 Heparin Sodium (Porcine) (Heparin Inj) 5,000 units Q8HR SQ 06/11/16 14:00 10/26/16 12:13 Bacitracin (Baciguent Oint) 1 applic BID TOP 07/20/16 10:00 10/26/16 07:51 Pantoprazole Sodium (Protonix Inj) 40 mg Q12H IV PUSH 07/30/16 10:15 10/26/16 07:43 Sodium Chloride ([place]) 1 spray BID NASAL 08/01/16 21:00 10/26/16 07:50 Diltiazem HCl (Cardizem) 30 mg QID PEG 08/16/16 13:00 10/26/16 12:14 Amoxicillin (Trimox) 500 mg Q8HR PO 08/22/16 22:00 10/26/16 12:14 Docusate Sodium (Colace Liq) 100 mg BID PO 08/30/16 21:00 10/26/16 07:42 Lactulose (Lactulose Liq) 30 ml DAILY PO 09/02/16 15:30 10/26/16 07:42 Artificial Tears (Tears Naturale Opth Soln) 1 drop BID EACH EYE 09/05/16 21:00 10/26/16 07:50 Metoprolol Tartrate (Lopressor) 50 mg BID PO 09/13/16 21:00 10/25/16 21:12 Morphine Sulfate (Morphine Inj) 1 mg Q24H PRN IV PUSH dressing change 30 min before 09/17/16 14:30 10/22/16 02:00 Ketoconazole (Nizoral 2% Cream) 1 applic Q12HR TOPICAL 09/24/16 21:00 10/26/16 07:51 Sennosides (Senna Liq) 8.8 mg DAILY@1600 PO 09/25/16 17:00 10/26/16 15:11 Bisacodyl (Dulcolax Supp) 10 mg DAILY PRN RECTAL CONSTIPATION 09/26/16 15:30 10/20/16 12:53 Magnesium Hydroxide (Milk Of Magnesia Liq) 30 ml DAILY PRN PO constipation 10/13/16 14:30 10/20/16 12:54 Acetaminophen/ Hydrocodone Bitart ([place] 5-325 Mg) 1 tab Q6H PRN PO PAIN SCALE 1 TO 10 10/13/16 18:45 10/26/16 05:37 Cyclobenzaprine HCl (Flexeril) 5 mg HS PRN PO muscle relaxant 10/14/16 14:15 10/22/16 21:17 Nitrofurantoin Macrocrystals (Macrobid) 100 mg BIDPC PO 10/26/16 15:00 10/26/16 15:11 A/P Problem List: (1) Feeding tube dysfunction ICD Code: T85.598A (2) DM (diabetes mellitus) ICD Code: E11.9 (3) CVA (cerebral vascular accident) ICD Code: I63.9 (4) A-fib ICD Code: I48.91 Assessment and Plan A/P CVA Paraplegia 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 Recovery is not expected to occur. Clogged PEG tube Has occured on 10/14 and 10/23 Follow for recurrence Continue Flushes GI if replacement needed Chronic respiratory failure Related to CVA Continue trache managment PRN Levsin Atrial fibrillation Cardizem Metoprolol Follow heart rate History of non-Hodgkin's lymphoma Follow clinically Diabetes mellitus Follow blood sugars Decubitus ulcer stage IV: Wound care Frequent turns Colostomy declined by family (inability to divert feces in this chronic setting increases risks with ulcer and for recurrence of ulcers) Chronic Arevalo Follow for UTIs Hx of Gastric Ulcer Follow clinically PPI Monitor H/H intermittantly FEN: Continue Nepro tube feeds. Appreciate dietary recommendations. Continue free water flushes. Supplement potassium. DVT prophylaxis: SCDs. Problem Qualifiers (1) DM (diabetes mellitus): Qualified Code: E11.9 - Type 2 diabetes mellitus without complications Moises Pruitt MD Oct 26, 2016 18:07
[2016-10-26] MEDS: INSULIN DETEMIR 100 UNITS/ML VIAL SQ SCH (21:40)
[2016-10-27] VITALS (11 sets, daily range): BP systolic 101–124; BP diastolic 63–69; PULSE 75–90; RESP 17–22; TEMP 95.6–98.1; O2SAT 96–100
[2016-10-27] MEDS: FREE WATER TUBE SCH ×7 (04:00→23:51)
[2016-10-27] MEDS: AMOXICILLIN (TRIHYDRATE) 500 MG CAP PO SCH ×3 (05:44→21:51)
[2016-10-27] MEDS: HEPARIN SODIUM - SQ 10,000 UNITS/ML VIAL SQ SCH ×3 (05:44→21:51)
[2016-10-27] MEDS: ACETIC ACID 0.25% SOLN 1000 ML IRR BTL IRRIGATION SCH ×3 (05:45→21:54)
[2016-10-27] MEDS: INSULIN ASPART SUPPLEMENTAL SCALE SQ SCH (06:13)
[2016-10-27] MEDS: LACTULOSE SYRUP 20 GM/30 ML CUP PO SCH (07:40)
[2016-10-27] MEDS: POTASSIUM CHLORIDE 25 MEQ EFFERVESCENT TAB TUBE SCH (07:40)
[2016-10-27] MEDS: NITROFURANTOIN MONOHYD MACROCR 100 MG CAP PO SCH ×2 (07:40→17:47)
[2016-10-27] MEDS: DOCUSATE SODIUM 100 MG/10 ML UDC PO SCH ×2 (07:40→21:51)
[2016-10-27] MEDS: PANTOPRAZOLE SODIUM 40 MG VIAL IV PUSH SCH ×2 (07:40→21:51)
[2016-10-27] MEDS: METOPROLOL TARTRATE 50 MG TAB PO SCH ×2 (07:40→21:51)
[2016-10-27] MEDS: ASPIRIN 325 MG TAB TUBE SCH (07:40)
[2016-10-27] MEDS: DILTIAZEM HCL 30 MG TAB PEG SCH ×4 (07:41→21:52)
[2016-10-27] MEDS: levETIRAcetam 500 MG/5 ML UDC TUBE SCH ×2 (07:41→21:51)
[2016-10-27] MEDS: NYSTATIN 100,000 U/GM PWD 15 GM BTL TOPICAL SCH ×2 (07:47→21:00)
[2016-10-27] MEDS: ARTIFICIAL TEARS OPTH SOLN 15 ML BTL EACH EYE SCH ×2 (07:47→21:00)
[2016-10-27] MEDS: SODIUM CHLORIDE 0.65% NASAL SPRAY 45 ML BTL NASAL SCH ×2 (07:48→21:00)
[2016-10-27] MEDS: BACITRACIN TOP OINT 15 GM TUBE TOP SCH ×2 (07:48→21:52)
[2016-10-27] MEDS: KETOCONAZOLE 2% CREAM 15 GM TOPICAL SCH ×2 (07:49→21:00)
--- NOTE | 2016-10-27 11:44 | HHI.PR ---
Subjective Remarks Patient is non-verbal. His constipation has resolved with a glycerine suppository yesterday. Unable to acquire history from the patient. Objective Vital Signs Date Time Temp Pulse Resp B/P Pulse Ox O2 Delivery O2 Flow Rate FiO2 10/27/16 09:49 100 T-piece 28 10/27/16 09:25 82 10/27/16 08:00 95.6 88 22 111/69 100 10/27/16 04:00 97.1 75 17 124/66 100 10/27/16 00:00 97.1 88 19 115/64 99 10/26/16 21:30 97.8 80 18 113/72 100 10/26/16 20:31 98 T-piece 28 10/26/16 20:31 98 T-piece 28 10/26/16 19:32 89 10/26/16 16:00 97.4 86 20 126/72 98 10/26/16 12:00 97.3 86 20 123/72 98 I/O 10/26/16 10/26/16 10/26/16 10/27/16 10/27/16 10/27/16 07:00 15:00 23:00 07:00 15:00 23:00 Intake Total 1600 ml 0 ml 1390 ml Output Total 800 ml 1000 ml 1000 ml Balance 800 ml -1000 ml 390 ml Intake Oral 0 ml 0 ml Tube Feeding 1000 ml 790 ml Other 600 ml 600 ml Output Urine Total 800 ml 1000 ml 1000 ml # Bowel Movements 2 1 Procedures 01/02/16 PEG placement 01/02/16 tracheostomy 07/22/2016 Wide excision of sacral skin wound, biopsy of the cavity lining and debridement. PEG tube replacement 07/29/16 Objective Remarks GENERAL: NAD, AOx0 SKIN: Warm and dry. HEAD: Normocephalic. EYES: No scleral icterus. No injection or drainage. NECK: Supple, tracheostomy in place and patent CARDIOVASCULAR: Regular rate and rhythm without murmurs, gallops, or rubs. RESPIRATORY: Breath sounds equal bilaterally. No accessory muscle use. GASTROINTESTINAL: Abdomen soft, non-tender, nondistended. MUSCULOSKELETAL: No cyanosis, or edema. Medications and IVs Administered Medications Medications (Trade) Dose Ordered Sig/Junior Route PRN Reason Start Time Stop Time Status Last Admin Dose Admin IV Flush (NS Flush) 2 ml UNSCH PRN IVF FLUSH AFTER USING IV ACCESS 6/2/16 06:00 09/28/16 21:18 Levetriacetam (Keppra Liq) 500 mg Q12HR TUBE 12/27/15 21:00 10/27/16 07:41 Acetaminophen (Tylenol 650 Mg/ 20 ml Liq) 650 mg Q6H PRN TUBE TEMP >100.4 12/30/15 15:15 10/25/16 15:13 Nystatin (Mycostatin Powder) 1 applic Q12HR TOPICAL 01/08/16 21:00 10/27/16 07:47 Acetic Acid (Acetic Acid 0.25% Irr Btl) 10 ml Q8HR IRRIGATION 02/05/16 16:00 10/27/16 05:45 Paroxetine HCl (Paxil Liq) 20 mg DAILY@1900 PEG 03/12/16 19:00 10/26/16 18:01 Insulin Detemir (Levemir Inj) 35 units HS SQ 03/24/16 21:00 10/26/16 21:40 Hyoscyamine Sulfate (Levsin) 0.25 mg Q4H PRN G-TUBE INCREASED SECRETIONS 04/11/16 10:30 08/31/16 05:02 Ondansetron HCl (Zofran Inj) 4 mg Q6HR PRN IV PUSH nausea/vomiting 04/14/16 19:45 08/10/16 10:16 Water (Free Water) 200 ml Q4HR TUBE 04/16/16 12:00 10/27/16 07:48 Potassium Bicarb/ Potassium Chloride (K-Lyte Cl Eff) 25 meq DAILY TUBE 05/28/16 09:00 10/27/16 07:40 Aspirin (Aspirin) 325 mg DAILY TUBE 05/27/16 11:40 10/27/16 07:40 Heparin Sodium (Porcine) (Heparin Inj) 5,000 units Q8HR SQ 06/11/16 14:00 10/27/16 05:44 Bacitracin (Baciguent Oint) 1 applic BID TOP 07/20/16 10:00 10/27/16 07:48 Pantoprazole Sodium (Protonix Inj) 40 mg Q12H IV PUSH 07/30/16 10:15 10/27/16 07:40 Sodium Chloride ([place]) 1 spray BID NASAL 08/01/16 21:00 10/27/16 07:48 Diltiazem HCl (Cardizem) 30 mg QID PEG 08/16/16 13:00 10/27/16 07:41 Amoxicillin (Trimox) 500 mg Q8HR PO 08/22/16 22:00 10/27/16 05:44 Docusate Sodium (Colace Liq) 100 mg BID PO 08/30/16 21:00 10/27/16 07:40 Lactulose (Lactulose Liq) 30 ml DAILY PO 09/02/16 15:30 10/27/16 07:40 Artificial Tears (Tears Naturale Opth Soln) 1 drop BID EACH EYE 09/05/16 21:00 10/27/16 07:47 Metoprolol Tartrate (Lopressor) 50 mg BID PO 09/13/16 21:00 10/27/16 07:40 Morphine Sulfate (Morphine Inj) 1 mg Q24H PRN IV PUSH dressing change 30 min before 09/17/16 14:30 10/22/16 02:00 Ketoconazole (Nizoral 2% Cream) 1 applic Q12HR TOPICAL 09/24/16 21:00 10/27/16 07:49 Sennosides (Senna Liq) 8.8 mg DAILY@1600 PO 09/25/16 17:00 10/26/16 15:11 Bisacodyl (Dulcolax Supp) 10 mg DAILY PRN RECTAL CONSTIPATION 09/26/16 15:30 10/20/16 12:53 Magnesium Hydroxide (Milk Of Magnesia Liq) 30 ml DAILY PRN PO constipation 10/13/16 14:30 10/20/16 12:54 Acetaminophen/ Hydrocodone Bitart ([place] 5-325 Mg) 1 tab Q6H PRN PO PAIN SCALE 1 TO 10 10/13/16 18:45 10/26/16 18:15 Cyclobenzaprine HCl (Flexeril) 5 mg HS PRN PO muscle relaxant 10/14/16 14:15 10/22/16 21:17 Nitrofurantoin Macrocrystals (Macrobid) 100 mg BIDPC PO 10/26/16 15:00 10/27/16 07:40 A/P Problem List: (1) Feeding tube dysfunction ICD Code: T85.598A (2) DM (diabetes mellitus) ICD Code: E11.9 (3) CVA (cerebral vascular accident) ICD Code: I63.9 (4) A-fib ICD Code: I48.91 Assessment and Plan A/P CVA Paraplegia 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 Recovery is not expected to occur. 10/02 care will be needed, so home health and hospice are not good options for him Medicaid with SSI pending. Recent Fever Could be from UTI or Decubitus ulcer Continue antibiotics for now, Nitrofurantoin for 3 days. Constipation Resolved Follow for recurrence Clogged PEG tube Has occured on 10/14 and 10/23 Follow for recurrence Continue Flushes GI if replacement needed Chronic respiratory failure Related to CVA Continue trache managment PRN Levsin Atrial fibrillation Cardizem Metoprolol Follow heart rate History of non-Hodgkin's lymphoma Follow clinically Diabetes mellitus Follow blood sugars Decubitus ulcer stage IV: Wound care Frequent turns Colostomy declined by family (inability to divert feces in this chronic setting increases risks with ulcer and for recurrence of ulcers) Chronic Arevalo Follow for UTIs Hx of Gastric Ulcer Follow clinically PPI Monitor H/H intermittantly FEN: Continue Nepro tube feeds. Appreciate dietary recommendations. Continue free water flushes. Supplement potassium. DVT prophylaxis: SCDs. Problem Qualifiers (1) DM (diabetes mellitus): Qualified Code: E11.9 - Type 2 diabetes mellitus without complications Moises Pruitt MD Oct 27, 2016 11:44
[2016-10-27] MEDS: SENNOSIDES SYRUP 8.8 MG/5 ML CUP PO SCH (15:15)
[2016-10-27] MEDS: PARoxetine HCL SUSP 20 MG/10 ML UDC PEG SCH (17:47)
[2016-10-27] MEDS: INSULIN DETEMIR 100 UNITS/ML VIAL SQ SCH (21:50)
[2016-10-28] VITALS (9 sets, daily range): BP systolic 93–142; BP diastolic 59–79; PULSE 86–98; RESP 18–20; TEMP 96.5–98.8; O2SAT 93–100
[2016-10-28] MEDS: FREE WATER TUBE SCH ×5 (04:00→20:50)
[2016-10-28] MEDS: ACETIC ACID 0.25% SOLN 1000 ML IRR BTL IRRIGATION SCH ×2 (05:46→13:22)
[2016-10-28] MEDS: AMOXICILLIN (TRIHYDRATE) 500 MG CAP PO SCH ×3 (05:46→20:51)
[2016-10-28] MEDS: HEPARIN SODIUM - SQ 10,000 UNITS/ML VIAL SQ SCH ×3 (05:46→20:51)
[2016-10-28] MEDS: INSULIN ASPART SUPPLEMENTAL SCALE SQ SCH (06:13)
[2016-10-28] MEDS: NITROFURANTOIN MONOHYD MACROCR 100 MG CAP PO SCH ×2 (08:05→16:54)
[2016-10-28] MEDS: LACTULOSE SYRUP 20 GM/30 ML CUP PO SCH (08:05)
[2016-10-28] MEDS: levETIRAcetam 500 MG/5 ML UDC TUBE SCH ×2 (08:05→20:52)
[2016-10-28] MEDS: ASPIRIN 325 MG TAB TUBE SCH (08:06)
[2016-10-28] MEDS: DOCUSATE SODIUM 100 MG/10 ML UDC PO SCH ×2 (08:06→20:51)
[2016-10-28] MEDS: POTASSIUM CHLORIDE 25 MEQ EFFERVESCENT TAB TUBE SCH (08:06)
[2016-10-28] MEDS: NYSTATIN 100,000 U/GM PWD 15 GM BTL TOPICAL SCH ×2 (08:07→20:52)
[2016-10-28] MEDS: BACITRACIN TOP OINT 15 GM TUBE TOP SCH ×2 (08:08→20:52)
[2016-10-28] MEDS: KETOCONAZOLE 2% CREAM 15 GM TOPICAL SCH ×2 (08:08→20:52)
[2016-10-28] MEDS: SODIUM CHLORIDE 0.65% NASAL SPRAY 45 ML BTL NASAL SCH ×2 (08:09→20:51)
[2016-10-28] MEDS: ARTIFICIAL TEARS OPTH SOLN 15 ML BTL EACH EYE SCH ×2 (08:10→20:51)
[2016-10-28] MEDS: METOPROLOL TARTRATE 50 MG TAB PO SCH ×2 (08:14→20:51)
[2016-10-28] MEDS: DILTIAZEM HCL 30 MG TAB PEG SCH ×4 (08:14→20:51)
[2016-10-28] MEDS: PANTOPRAZOLE SODIUM 40 MG VIAL IV PUSH SCH ×2 (10:02→20:55)
--- NOTE | 2016-10-28 10:39 | HHI.PR ---
Subjective Remarks in no distress. no fever. clinically no change. Objective Vitals Vital Signs Date Time Temp Pulse Resp B/P Pulse Ox O2 Delivery O2 Flow Rate FiO2 10/28/16 09:41 100 T-piece 28 10/28/16 08:00 93 20 115/72 93 10/28/16 06:30 98.8 90 18 125/75 100 10/28/16 02:23 100 T-Piece 28 10/27/16 23:45 98.1 84 17 115/65 100 10/27/16 21:30 100 T-Piece 28 10/27/16 21:00 97.7 90 17 111/67 100 10/27/16 20:32 99 T-piece 6.00 28 10/27/16 19:17 88 10/27/16 16:00 97.5 87 21 109/64 96 10/27/16 12:00 97.4 82 20 101/63 100 I/O 10/27/16 10/27/16 10/27/16 10/28/16 10/28/16 10/28/16 07:00 15:00 23:00 07:00 15:00 23:00 Intake Total 1390 ml 0 ml 1380 ml Output Total 1000 ml 950 ml 700 ml Balance 390 ml -950 ml -700 ml 1380 ml Intake Oral 0 ml 0 ml Tube Feeding 790 ml 780 ml Other 600 ml 600 ml Output Urine Total 1000 ml 950 ml 700 ml # Bowel Movements 1 2 1 Imaging Last Impressions Tube Change 10/23/16 0000 Signed Impressions: Service Date/Time: Sunday, October 23, 2016 16:34 - CONCLUSION: Uncomplicated gastrojejunostomy tube exchange as above. Existing tube was patent with some luminal narrowing. The balloon port was damaged and leaking, however. Bobby Gray MD Chest X-Ray 10/18/16 0000 Signed Impressions: Service Date/Time: Tuesday, October 18, 2016 19:17 - CONCLUSION: 1. Minimal right perihilar streakiness consistent with probable atelectasis. 2. Elevation of the right hemidiaphragm. 3. Tracheostomy tube in good position above the geno. Eduardo Valenzuela MD Abdomen X-Ray 08/31/16 0000 Signed Impressions: Service Date/Time: Wednesday, August 31, 2016 16:36 - CONCLUSION: 1. No acute findings. Mild constipation. Durga Dotson MD Abdomen/Pelvis CT 04/12/16 0000 Signed Impressions: Service Date/Time: Tuesday, April 12, 2016 20:52 - CONCLUSION: 1. 6.4 cm necrotic mass or abscess in the soft tissues posteriorly just below the sacrum associated with some bony destructive change of the lower most sacrum and coccyx with inflammatory changes extending into the ischiorectal fossa and into the presacral retroperitoneum predominantly on the left side. There is associated fairly marked mural thickening of the anal verge and rectum. 2. There is gastrostomy and Arevalo catheter present. Stable abdominal aortic aneurysm. Durga Dotson MD Head Magnetic Resonance Angiography 03/05/16 0000 Signed Impressions: Service Date/Time: Saturday, March 05, 2016 09:26 - CONCLUSION: Persistent high-grade subtotal occlusive stenotic lesions in the distal right vertebral artery and proximal basilar artery with significant improvement in flow and recanalization following initial presentation of thrombosis. Stable interstitial circulation without significant stenosis. 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 There is decreasing restricted diffusion and increasing loss of volume characteristic of a subacute to chronic infarct. No evidence of acute infarct, acute hemorrhage mass or edema. Ernesto Kulkarni MD Head CT 01/16/16 0000 Signed Impressions: Service Date/Time: Saturday, January 16, 2016 10:51 - CONCLUSION: No extensive low density in the brainstem colin more prominent in the right the left extending into the right middle cerebellar peduncle consistent with brainstem infarct nonhemorrhagic acute Wellington West MD Neck Magnetic Resonance Angiography 12/22/15 1445 Signed Impressions: Service Date/Time: Tuesday, December 22, 2015 09:22 - CONCLUSION: Variant origin of the left vertebral artery from the aortic arch. No evidence of carotid stenosis. Glen Zamora MD Head/Brain Mag Res Venography 12/22/15 0000 Signed Impressions: Service Date/Time: Tuesday, December 22, 2015 09:22 - CONCLUSION: Normal MRV. Jonel Jones Jr., MD Objective Remarks GENERAL: on Trach- in no apparent distress. CARDIOVASCULAR: Regular rate and regular rhythm without murmurs, gallops, or rubs. RESPIRATORY: Clear to auscultation. Breath sounds equal bilaterally. No wheezes , rales, or rhonchi. GASTROINTESTINAL: Abdomen soft, non-tender,distended. hypoactive bowel sounds-PEG in place MUSCULOSKELETAL: Extremities without clubbing, cyanosis, or edema. NEURO: awake Procedures 01/02/16 PEG placement 01/02/16 tracheostomy 07/22/2016 Wide excision of sacral skin wound, biopsy of the cavity lining and debridement. PEG tube replacement 07/29/16 VAC changes- M-W-F 4/5- GJ tube replacement Medications and IVs Current Medications IV Flush (NS Flush) 2 ml UNSCH PRN IVF FLUSH AFTER USING IV ACCESS Last administered on 09/28/16t 21:18; Start 12/21/15 at 06:00 Ondansetron HCl (Zofran Inj) 4 mg STK-MED ONCE .ROUTE ; Start 12/21/15 at 06:22; Stop 12/21/15 at 06:23; Status DC Ondansetron HCl (Zofran Inj) 4 mg ONCE ONCE IV PUSH Last administered on at 06:43; Start 12/21/15 at 06:30; Stop 12/21/15 at 06:31; Status DC Diltiazem HCl 20 mg 20 mg ONCE ONCE IV Last administered on 12/21/15at 06:42; Start 12/21/15 at 06:30; Stop 12/21/15 at 06:31; Status DC Diltiazem HCl/ Sodium Chloride (Cardizem Inj/NS Inj) 125 ml @ 0 mls/hr TITRATE IV Last administered on 12/21/15at 06:47; Start 12/21/15 at 06:30; Stop 12/21/15 at 13:00; Status DC Acetaminophen (Tylenol) 650 mg ONCE ONCE PO ; Start 12/21/15 at 06:45; Stop 12/20 at 06:46; Status DC Lorazepam (Ativan Inj) 1 mg ONCE ONCE IV PUSH Last administered on 12/21/15at 07 :22; Start 12/21/15 at 07:15; Stop 12/21/15 at 07:16; Status DC Etomidate (Amidate Inj) 40 mg STK-MED ONCE .ROUTE Last administered on 08:17; Start 12/21/15 at 07:37; Stop 12/21/15 at 07:38; Status DC Succinylcholine Chloride 200 mg 200 mg STK-MED ONCE .ROUTE Last administered on 12/21/15 08:18; Start 12/21/15 at 07:37; Stop 12/21/15 at 07:38; Status DC Propofol (Diprivan 1000 Mg/100ml Inj) 100 ml @ As Directed STK-MED ONCE .ROUTE Last administered on 12/21/15at 08:19; Start 12/21/15 at 07:46; Stop 12/21/15 at 07:47; Status DC Propofol (Diprivan 1000 Mg/100ml Inj) search Sets for Drip. NOW PRN IV SEDATION Last administered on 12/22/15 06:25; Start 12/21/15 at 08:30; Stop 12/28 at 15:43; Status DC Gadodiamide (Omniscan Pf Inj) 18 ml STK-MED ONCE IV Last administered on at 10:11; Start 12/21/15 at 10:11; Stop 12/21/15 at 10:12; Status DC Pantoprazole Sodium (Protonix Inj) 40 mg DAILY IV Last administered on at 07:39; Start 12/21/15 at 13:00; Stop 01/03/16 at 10:10; Status DC Albuterol/ Ipratropium (Duoneb Neb) 1 ampule Q6HR NEB INH Last administered on 12/25/15at 07:51; Start 12/21/15 at 13:00; Stop 12/25/15 at 13:00; Status DC Miscellaneous Information 1 [id number] Last administered on 12/21/15at 13:00; Start 12/21/15 at 13:00; Stop 01/12/16 at 11:47; Status DC Chlorhexidine Gluconate (Chlorhexidine 2% Cloth) 3 pack Taper DAILY@04 TOP Last administered on 01/11/16at 04:10; Start 12/22/15 at 04:00; Stop 01/12/16 at 11:47; Status DC Chlorhexidine Gluconate 3 pack 3 pack UNSCH PRN TOP HYGIENIC CARE; Start at 13:00; Stop 01/12/16 at 11:47; Status DC Sodium Chloride (NS 1000 ml Inj) 1,000 ml @ 75 mls/hr [id number] IV Last administered on 12/22/15at 17:00; Start 12/21/15 at 13:00; Stop 12/22/15 at 19:01; Status DC Dextrose (D50w (Vial) Inj) 25 ml UNSCH PRN IV PUSH HYPOGLYCEMIA-SEE COMMENTS; Start 12/21/15 at 13:00; Stop 04/19/16 at 17:19; Status DC Glucagon (Glucagon Inj) 1 mg UNSCH PRN OTHER HYPOGLYCEMIA-SEE COMMENTS; Start 12/21/15 at 13:00; Stop 04/19/16 at 17:19; Status DC Insulin Human Regular (NovoLIN R SUPPLEMENTAL SCALE) 1 Q6H SQ Last administered on 01/04/16at 06:31; Start 12/21/15 at 13:00; Stop 01/04/16 at 10:05 ; Status DC Levetriacetam (Keppra) 500 mg Q12HR PO Last administered on 12/27/15at 09:00; Start 12/21/15 at 13:45; Stop 12/27/15 at 09:44; Status DC Heparin Sodium (Porcine) (Heparin Inj) 5,000 units BID SQ Last administered on 12/22/15at 20:52; Start 12/21/15 at 21:00; Stop 12/23/15 at 08:32; Status DC Warfarin Sodium (Coumadin) 7.5 mg ONCE ONCE PO Last administered on 12/21/15at 21:43; Start 12/21/15 at 21:00; Stop 12/21/15 at 21:01; Status DC Warfarin Sodium (Coumadin) 5 mg DAILY@16 PO Last administered on 12/23/15at 16:00 ; Start 12/22/15 at 16:00; Stop 12/26/15 at 09:29; Status DC Patient Medication Teaching (Coumadin Booklet) 1 ONCE ONCE XX Last administered on 12/21/15at 20:15; Start 12/21/15 at 20:15; Stop 12/21/15 at 20:16; Status DC Chlorhexidine Gluconate (Peridex 0.12% Liq) 15 ml BID@08,20 MT Last administered on 01/12/16at 08:00; Start 12/22/15 at 20:00; Stop 01/12/16 at 11:47 ; Status DC Gadodiamide 20 ml 20 ml STK-MED ONCE IV Last administered on 12/22/15at 09:55; Start 12/22/15 at 09:55; Stop 12/22/15 at 09:56; Status DC Pharmacy Profile Note ml @ 0 mls/hr UNSCH OTHER ; Start 12/22/15 at 11:00; Stop 12/22/15 at 19:43; Status DC Sodium Chloride 1,000 ml @ 50 mls/hr Q20H IV Last administered on 12/24/15at 20: 02; Start 12/22/15 at 18:44; Stop 12/25/15 at 11:52; Status DC Pharmacy Profile Note (Coumadin Consult Pharmacy) 0 ml @ 0 mls/hr UNSCH OTHER ; Start 12/22/15 at 19:45; Stop 01/04/16 at 12:25; Status DC Acetaminophen 650 mg 650 mg Q6H PRN PO TEMP > 100 Last administered on at 13:24; Start 12/23/15 at 02:45; Stop 12/30/15 at 15:04; Status DC Potassium Chloride 100 ml @ 50 mls/hr Q2H PRN IV For Potassium 2.8 - 3.2 mEq/L ; Start 12/23/15 at 08:30; Stop 01/09/16 at 11:14; Status DC Potassium Chloride (KCl 20 Meq Premix Inj) 100 ml @ 50 mls/hr Q2H PRN IV For Potassium 2.8 - 3.2 mEq/L; Start 12/23/15 at 08:30; Stop 01/09/16 at 11:14; Status DC Potassium Chloride 40 meq 40 meq UNSCH PRN PO/TUBE For Potassium 3.3 - 3.5 mEq/ L; Start 12/23/15 at 08:30; Stop 01/09/16 at 11:14; Status DC Potassium Chloride 100 ml @ 25 mls/hr UNSCH PRN IV For Potassium 3.3 - 3.5 mEq /L; Start 12/23/15 at 08:30; Stop 01/09/16 at 11:14; Status DC Potassium Chloride 100 ml @ 50 mls/hr Q2H PRN IV For Potassium 3.3 - 3.5 mEq/L ; Start 12/23/15 at 08:30; Stop 01/09/16 at 11:14; Status DC Magnesium Sulfate/ Sodium Chloride (Magnesium Sulfate Inj/NS Inj) 100 ml @ 50 mls/hr UNSCH PRN IV For Magnesium 0.9 - 1.1 mg/dL; Start 12/23/15 at 08:30; Stop 01/09/16 at 11:14; Status DC Magnesium Oxide 800 mg 800 mg UNSCH PRN PO For Magnesium 1.2 - 1.6 mg/dL; Start 12/23/15 at 08:30; Stop 01/09/16 at 11:14; Status DC Magnesium Sulfate/ Sodium Chloride (Magnesium Sulfate Inj/NS Inj) 100 ml @ 50 mls/hr UNSCH PRN IV For Magnesium 1.2 - 1.6 mg/dL; Start 12/23/15 at 08:30; Stop 01/09/16 at 11:14; Status DC Potassium Phosphate 2000 mg 2,000 mg Q4H PRN PO For Phosphorus < 2.5 mg/dL; Start 12/23/15 at 08:30; Stop 01/09/16 at 11:14; Status DC Sodium Phosphate/ Sodium Chloride (Sodium Phosphate Inj/NS 250 ml Inj) 250 ml @ 42 mls/hr UNSCH PRN IV For Phosphorus < 2.5 mg/dL; Start 12/23/15 at 08:30; Stop 01/09/16 at 11:14; Status DC Potassium Chloride (KCl 40 Meq/30 ml Liq) 40 meq UNSCH PRN PO/TUBE SEE LABEL COMMENTS; Start 12/23/15 at 08:30; Stop 01/09/16 at 11:14; Status DC Potassium Phosphate 2000 mg 2,000 mg UNSCH PRN PO/TUBE SEE LABEL COMMENTS; Start 12/23/15 at 08:30; Stop 01/09/16 at 11:14; Status DC Potassium Phosphate 30 mmol/ Sodium Chloride 260 ml @ 42 mls/hr UNSCH PRN IV SEE LABEL COMMENTS; Start 12/23/15 at 08:30; Stop 01/09/16 at 11:14; Status DC Sodium Chloride 1,000 ml @ 75 mls/hr [id number] IV ; Start 12/23/15 at 08:30; Stop 12/23/15 at 08:30; Status DC Piperacillin Sod/ Tazobactam Sod 50 ml @ 100 mls/hr Q6H IV Last administered on 12/30/15at 10:02; Start 12/23/15 at 10:00; Stop 12/30/15 at 14:50; Status DC Vancomycin HCl/ Sodium Chloride (Vancomycin Inj/ NS 250 ml Inj) 250 ml @ 250 mls/hr Q12H IV Last administered on 12/29/15at 09:01; Start 12/24/15 at 08:45; Stop 12/29/15 at 15:33; Status DC Warfarin Sodium (Coumadin) 4 mg DAILY@16 PO Last administered on 12/28/15at 16:00 ; Start 12/26/15 at 16:00; Stop 01/04/16 at 12:25; Status DC Levetriacetam (Keppra Liq) 500 mg Q12HR TUBE Last administered on 10/28/16t 08 :05; Start 12/27/15 at 21:00 Docusate Sodium (Colace Liq) 100 mg Q12HR TUBE Last administered on 01/15/16at 09:01; Start 12/27/15 at 21:00; Stop 04/16/16 at 08:50; Status DC Sennosides (Senna Liq) 8.8 mg DAILY TUBE Last administered on 01/15/16at 09:01 ; Start 12/27/15 at 17:00; Stop 01/15/16 at 20:37; Status DC Bisacodyl (Dulcolax Supp) 10 mg ONCE ONCE RECTAL ; Start 12/27/15 at 16:15; Stop 12/27/15 at 16:15; Status DC Albuterol/ Ipratropium (Duoneb Neb) 1 ampule Q4HR NEB PRN NEB RESPIRATORY DISTRESS Last administered on 12/29/15at 12:17; Start 12/27/15 at 22:00; Stop at 08:16; Status DC Bisacodyl (Dulcolax Supp) 10 mg ONCE ONCE RECTAL ; Start 12/28/15 at 12:00; Stop 12/28/15 at 12:01; Status DC Sodium Chloride (Sodium Chloride) 1 gm BID TUBE Last administered on 12/29/15at 09:02; Start 12/28/15 at 21:00; Stop 12/29/15 at 15:43; Status DC Lactulose (Lactulose Liq) 30 ml DAILY TUBE Last administered on 12/29/15at 09:02 ; Start 12/28/15 at 20:30; Stop 12/29/15 at 15:43; Status DC Levofloxacin (Levaquin) 750 mg DAILY@16 TUBE ; Start 12/29/15 at 16:00; Stop 05/05 at 16:00; Status DC Sodium Chloride (Sodium Chloride) 1 gm DAILY TUBE Last administered on at 07:29; Start 12/30/15 at 09:00; Stop 12/31/15 at 14:08; Status DC Water 200 ml 200 ml Q6HR G-TUBE Last administered on 12/31/15at 04:19; Start 06/05 at 14:45; Stop 12/31/15 at 07:31; Status DC Ceftriaxone Sodium/Sodium Chloride (Rocephin Inj/NS Inj) 100 ml @ 200 mls/hr Q12H IV Last administered on 01/03/16at 02:47; Start 12/30/15 at 15:00; Stop at 10:09; Status DC Acetaminophen (Tylenol 650 Mg/ 20 ml Liq) 650 mg Q6H PRN TUBE TEMP >100.4 Last administered on 10/25/16t 15:13; Start 12/30/15 at 15:15 Lactobacillus Acidophilus (Lactinex Pkt) 1 gm BID TUBE Last administered on at 09:00; Start 12/30/15 at 21:00; Stop 02/10/16 at 14:30; Status DC Enoxaparin Sodium (Lovenox Inj) 90 mg Q12H SQ Last administered on 01/01/16at 21 :57; Start 12/31/15 at 08:00; Stop 01/03/16 at 10:33; Status DC Water (Free Water) 100 ml Q12H G-TUBE ; Start 12/31/15 at 18:00; Stop 12/31/15 at 18:00; Status DC Acetaminophen/ Hydrocodone Bitart ([place] 5-325 Mg) 1 tab Q6H PRN PO PAIN Last administered on 05/26/16at 20:46; Start 12/31/15 at 15:00; Stop 06/02/16 at 21: 44; Status DC Fentanyl Citrate (Sublimaze Inj) 25 mcg Q1H PRN IV PUSH BREAKTHROUGH PAIN; Start 12/31/15 at 15:00; Stop 03/06/16 at 10:03; Status DC Water (Free Water) 200 ml Q8H G-TUBE Last administered on 01/01/16at 17:55; Start 12/31/15 at 18:00; Stop 01/02/16 at 09:56; Status DC Sodium Chloride (Sodium Chloride) 1 gm BID TUBE Last administered on 01/03/16at 07:39; Start 12/31/15 at 21:00; Stop 01/03/16 at 09:08; Status DC Miscellaneous Information Hold Anticoagulation after midni... ONCE ONCE OTHER ; Start 01/01/16 at 10:15; Stop 01/01/16 at 10:29; Status DC Sodium Chloride (NS 1000 ml Inj) 1,000 ml @ 50 mls/hr Q20H IV Last administered on 01/02/16at 12:26; Start 01/01/16 at 18:00; Stop 01/03/16 at 10:07 ; Status DC Midazolam HCl (Versed Inj) 5 mg STK-MED ONCE .ROUTE ; Start 01/02/16 at 12:47; Stop 01/02/16 at 12:48; Status DC Vecuronium [place] (Norcuron 10 Mg Inj) 10 mg STK-MED ONCE .ROUTE ; Start at 12:47; Stop 01/02/16 at 12:48; Status DC Fentanyl Citrate (Sublimaze Inj) 250 mcg ONCE ONCE IV PUSH Last administered on 01/02/16at 15:00; Start 01/02/16 at 15:00; Stop 01/02/16 at 15:01; Status DC Midazolam HCl (Versed Inj) 10 mg ONCE ONCE IV PUSH Last administered on at 15:00; Start 01/02/16 at 15:00; Stop 01/02/16 at 15:01; Status DC Rocuronium [place] (Zemuron Inj) 100 mg BOLUS ONCE IV Last administered on at 15:00; Start 01/02/16 at 15:00; Stop 01/02/16 at 15:01; Status DC Ketamine HCl (Ketalar Inj) 500 mg STK-MED ONCE .ROUTE ; Start 01/02/16 at 14:30 ; Stop 01/02/16 at 14:31; Status DC Propofol 230 mg 230 mg STK-MED ONCE IV ; Start 01/02/16 at 16:51; Stop 01/02/16 at 16:52; Status DC Sodium Chloride (NS 1000 ml Inj) 1,000 ml @ 0 mls/hr Q0M IV ; Start 01/03/16 at 10:15; Stop 01/17/16 at 17:30; Status DC Ranitidine HCl (Zantac Liq) 150 mg Q12HR PO Last administered on 01/17/16at 07: 39; Start 01/04/16 at 09:00; Stop 01/17/16 at 15:23; Status DC Enoxaparin Sodium 90 mg 90 mg Q12HR SQ Last administered on 01/11/16at 10:01; Start 01/04/16 at 09:00; Stop 01/11/16 at 12:35; Status DC Sodium Chloride (NS 500 ml Inj) 500 ml @ 0 mls/hr BOLUS ONCE IV Last administered on 01/03/16at 22:57; Start 01/03/16 at 23:00; Stop 01/03/16 at 23:01 ; Status DC Insulin Aspart (NovoLOG SUPPLEMENTAL SCALE) 1 Q6HR SQ Last administered on at 12:00; Start 01/04/16 at 12:00; Stop 03/24/16 at 13:58; Status DC Potassium Chloride (KCl 40 Meq/30 ml Liq) 40 meq Q4H NG Last administered on at 16:21; Start 01/04/16 at 13:00; Stop 01/04/16 at 17:01; Status DC Warfarin Sodium 5 mg 5 mg DAILY@1600 PO Last administered on 01/09/16at 17:21; Start 01/04/16 at 16:00; Stop 01/10/16 at 10:06; Status DC Pharmacy Profile Note (Coumadin Consult Pharmacy) 0 ml @ 0 mls/hr UNSCH XX ; Start 01/04/16 at 12:30; Stop 04/20/16 at 12:04; Status DC Insulin Detemir (Levemir Inj) 10 units Q12HR SQ Last administered on 01/05/16at 08:00; Start 01/04/16 at 21:00; Stop 01/05/16 at 08:42; Status DC Insulin Detemir (Levemir Inj) 5 units NOW ONCE SQ Last administered on at 13:28; Start 01/04/16 at 12:45; Stop 01/04/16 at 12:46; Status DC Albuterol/ Ipratropium (Duoneb Neb) 1 ampule Q4HR NEB PRN NEB dyspnea Last administered on 04/19/16at 02:24; Start 01/07/16 at 08:15; Stop 04/25/16 at 18:54 ; Status DC Warfarin Sodium (Coumadin) 7.5 mg ONCE ONCE PO Last administered on 01/07/16at 16:40; Start 01/07/16 at 16:00; Stop 01/07/16 at 16:01; Status DC Nystatin (Mycostatin Powder) 1 applic Q12HR TOPICAL Last administered on t 08:07; Start 01/08/16 at 21:00 Ipratropium [place] (Atrovent Neb) 0.5 mg TID NEB NEB Last administered on 02/20at 13:17; Start 01/08/16 at 20:00; Stop 02/21/16 at 17:52; Status DC Warfarin Sodium (Coumadin) 5 mg DAILY@1600 PO Last administered on 01/11/16at 14 :26; Start 01/11/16 at 16:00; Stop 01/12/16 at 09:45; Status DC Warfarin Sodium (Coumadin) 6 mg ONCE PO Last administered on 01/10/16at 17:10; Start 01/10/16 at 16:00; Stop 01/10/16 at 21:00; Status DC Metoprolol Tartrate (Lopressor) 50 mg Q12HR GT Last administered on 01/11/16at 10:02; Start 01/10/16 at 11:00; Stop 01/11/16 at 12:30; Status DC Metoprolol Tartrate (Lopressor) 50 mg TID GT Last administered on 01/14/16at 08: 24; Start 01/11/16 at 13:00; Stop 01/14/16 at 08:28; Status DC Insulin Detemir (Levemir Inj) 10 units HS SQ Last administered on 01/11/16at 22: 23; Start 01/11/16 at 21:00; Stop 01/12/16 at 11:47; Status DC Warfarin Sodium (Coumadin) 4 mg DAILY@16 PO ; Start 01/12/16 at 16:00; Stop at 16:00; Status DC Insulin Detemir (Levemir Inj) 20 units HS SQ Last administered on 01/13/16at 20: 26; Start 01/12/16 at 21:00; Stop 01/14/16 at 08:28; Status DC Warfarin Sodium (Coumadin) 2 mg DAILY@16 PO Last administered on 01/13/16at 17: 05; Start 01/12/16 at 16:00; Stop 01/14/16 at 11:23; Status DC Insulin Detemir (Levemir Inj) 22 units HS SQ Last administered on 01/14/16at 21: 37; Start 01/14/16 at 21:00; Stop 01/15/16 at 10:06; Status DC Metoprolol Tartrate (Lopressor) 75 mg TID GT Last administered on 03/10/16at 17: 43; Start 01/14/16 at 09:00; Stop 03/10/16 at 21:13; Status DC Miscellaneous (Pill Splitter) 1 ea UNSCH PRN OTHER SEE LABEL COMMENTS; Start at 08:30 Warfarin Sodium (Coumadin) 4 mg DAILY@1600 PO Last administered on 01/21/16at 16: 51; Start 01/14/16 at 16:00; Stop 01/23/16 at 09:29; Status DC Patient Medication Teaching (Coumadin Booklet) 1 ONCE ONCE XX ; Start 01/14/16 at 16:00; Stop 01/14/16 at 16:01; Status DC Insulin Detemir (Levemir Inj) 24 units HS SQ Last administered on 03/04/16at 21: 09; Start 01/15/16 at 21:00; Stop 03/05/16 at 11:17; Status DC Citalopram Hydrobromide (CeleXA) 20 mg DAILY PEG Last administered on at 08:01; Start 01/16/16 at 09:00; Stop 01/16/16 at 09:41; Status DC Sennosides (Senna Liq) 8.8 mg BID TUBE Last administered on 02/20/16at 08:32; Start 01/15/16 at 21:00; Stop 02/20/16 at 16:13; Status DC Gadodiamide 18 ml 18 ml STK-MED ONCE IV ; Start 01/16/16 at 20:40; Stop at 20:41; Status DC Sodium Chloride (NS 1000 ml Inj) 1,000 ml @ 125 mls/hr Q8H IV Last administered on 01/17/16at 15:11; Start 01/17/16 at 15:00; Stop 01/17/16 at 17:31 ; Status DC Ranitidine HCl 150 mg 150 mg Q24H PO Last administered on 07/28/16t 08:54; Start 01/18/16 at 09:00; Stop 07/30/16 at 10:05; Status DC Sodium Chloride 1,000 ml @ 75 mls/hr [id number] IV Last administered on at 05:22; Start 01/17/16 at 18:00; Stop 01/18/16 at 09:28; Status DC Sodium Chloride/ Sterile Water (Sodium Chloride 23.4% Inj/Sterile Water For Inj ) 1,009.625 ml @ 60 mls/hr [id number] IV Last administered on 01/21/16at 22:46; Start 01/18/16 at 11:00; Stop 01/22/16 at 10:09; Status DC Potassium Chloride (KCl) 40 meq ONCE ONCE PO ; Start 01/18/16 at 09:30; Stop at 09:31; Status DC Potassium Chloride (KCl 40 Meq/30 ml Liq) 40 meq ONCE ONCE TUBE Last administered on 01/18/16at 11:08; Start 01/18/16 at 11:00; Stop 01/18/16 at 11:01 ; Status DC Water (Free Water) 300 ml Q4HR TUBE Last administered on 01/19/16at 08:00; Start 01/18/16 at 12:00; Stop 01/19/16 at 10:43; Status DC Water (Free Water) 400 ml Q4HR TUBE Last administered on 04/16/16at 04:00; Start 01/19/16 at 12:00; Stop 04/16/16 at 09:09; Status DC Potassium Chloride (KCl 40 Meq/30 ml Liq) 40 meq ONCE ONCE NG Last administered on 01/19/16at 11:41; Start 01/19/16 at 11:00; Stop 01/19/16 at 11:01; Status DC Potassium Chloride 60 meq 60 meq ONCE ONCE PO/TUBE Last administered on at 13:30; Start 01/21/16 at 11:15; Stop 01/21/16 at 11:27; Status DC Sodium Chloride (1/2 NS 1000 ml Inj) 1,000 ml @ 30 mls/hr Q24H IV Last administered on 02/06/16at 11:26; Start 01/22/16 at 11:00; Stop 02/07/16 at 14:49 ; Status DC Warfarin Sodium (Coumadin) 3 mg DAILY@16 PO Last administered on 01/23/16at 17:19 ; Start 01/23/16 at 16:00; Stop 01/24/16 at 14:05; Status DC Warfarin Sodium (Coumadin) 3 mg DAILY@16 PO Last administered on 01/25/16at 15:59 ; Start 01/25/16 at 16:00; Stop 01/26/16 at 15:04; Status DC Warfarin Sodium (Coumadin) 4 mg ONCE@1600 ONCE PO Last administered on at 16:55; Start 01/24/16 at 16:00; Stop 01/24/16 at 16:01; Status DC Warfarin Sodium (Coumadin) 3 mg DAILY@16 PO ; Start 01/27/16 at 16:00; Stop at 16:00; Status DC Warfarin Sodium (Coumadin) 4 mg ONCE@1600 ONCE PO Last administered on at 16:52; Start 01/26/16 at 16:00; Stop 01/26/16 at 16:01; Status DC Potassium Chloride (KCl 40 Meq/30 ml Liq) 80 meq ONCE ONCE PO Last administered on 01/27/16at 07:45; Start 01/27/16 at 07:45; Stop 01/27/16 at 08:10; Status DC Warfarin Sodium (Coumadin) 4 mg DAILY@16 PO Last administered on 02/02/16at 17: 22; Start 01/27/16 at 16:00; Stop 02/03/16 at 11:37; Status DC Acetic Acid (Acetic Acid 0.25% Irr Btl) 10 ml Q8HR IRRIGATION Last administered on 02/05/16at 06:00; Start 01/28/16 at 22:00; Stop 02/05/16 at 15:51 ; Status DC Warfarin Sodium 3 mg 3 mg DAILY@1600 PO Last administered on 02/11/16at 17:34; Start 02/03/16 at 16:00; Stop 02/12/16 at 12:45; Status DC Ceftriaxone Sodium/Sodium Chloride (Rocephin Inj/NS Inj) 100 ml @ 200 mls/hr Q24H IV Last administered on 02/10/16at 05:23; Start 02/05/16 at 06:30; Stop at 14:32; Status DC Acetic Acid (Acetic Acid 0.25% Irr Btl) 10 ml Q8HR IRRIGATION ; Start 02/05/16 at 16:00; Status Cancel Acetic Acid (Acetic Acid 0.25% Irr Btl) 10 ml Q8HR IRRIGATION Last administered on 10/28/16t 05:46; Start 02/05/16 at 16:00 Lactobacillus Acidophilus (Lactinex) 1 tab Q12HR PO Last administered on at 08:25; Start 02/10/16 at 21:00; Stop 02/12/16 at 16:05; Status DC Warfarin Sodium (Coumadin) 4 mg DAILY@1600 PO Last administered on 02/14/16at 15 :56; Start 02/12/16 at 16:00; Stop 02/15/16 at 10:17; Status DC Paroxetine HCl (Paxil Liq) 20 mg DAILY PEG Last administered on 02/25/16at 07:33 ; Start 02/16/16 at 09:00; Stop 02/25/16 at 10:36; Status DC Warfarin Sodium (Coumadin) 3 mg DAILY@1600 PO Last administered on 02/19/16at 16: 42; Start 02/15/16 at 16:00; Stop 02/20/16 at 08:50; Status DC Warfarin Sodium (Coumadin) 4 mg DAILY@16 PO Last administered on 02/21/16at 15:54 ; Start 02/20/16 at 16:00; Stop 02/22/16 at 08:46; Status DC Sennosides (Senna Liq) 8.8 mg DAILY TUBE Last administered on 05/26/16at 08:14 ; Start 02/21/16 at 09:00; Stop 05/27/16 at 11:51; Status DC Albuterol Sulfate (Albuterol Neb) 2.5 mg QID NEB INH Last administered on at 19:51; Start 02/21/16 at 20:00; Stop 02/25/16 at 20:00; Status DC Acetylcysteine (Mucomyst 10% Neb) 1 ml QID NEB NEB Last administered on at 16:32; Start 02/21/16 at 20:00; Stop 02/23/16 at 16:01; Status DC Warfarin Sodium (Coumadin) 3 mg DAILY@16 PO Last administered on 02/22/16at 15:59 ; Start 02/22/16 at 16:00; Stop 02/23/16 at 08:56; Status DC Warfarin Sodium (Coumadin) 3 mg DAILY@16 PO Last administered on 02/28/16at 16: 17; Start 02/24/16 at 16:00; Stop 02/29/16 at 10:04; Status DC Warfarin Sodium (Coumadin) 2 mg ONCE PO Last administered on 02/23/16at 16:22; Start 02/23/16 at 16:00; Stop 02/23/16 at 21:00; Status DC Paroxetine HCl (Paxil Liq) 20 mg DAILY@1900 PEG Last administered on 03/08/16at 18:11; Start 02/26/16 at 19:00; Stop 03/09/16 at 11:31; Status DC Warfarin Sodium (Coumadin) 3 mg DAILY@16 PO Last administered on 03/06/16at 16: 22; Start 03/01/16 at 16:00; Stop 03/09/16 at 10:30; Status DC Warfarin Sodium (Coumadin) 1 mg ONCE PO Last administered on 02/29/16at 17:28; Start 02/29/16 at 16:00; Stop 02/29/16 at 21:00; Status DC Insulin Detemir (Levemir Inj) 27 units HS SQ Last administered on 03/05/16at 20: 25; Start 03/05/16 at 21:00; Stop 8/17/16 at 10:03; Status DC Patient Medication Teaching (Coumadin Booklet) 1 ONCE ONCE XX Last administered on 03/05/16at 16:00; Start 03/05/16 at 16:00; Stop 03/05/16 at 16:01 ; Status DC Insulin Detemir (Levemir Inj) 30 units HS SQ Last administered on 03/21/16at 22: 32; Start 03/06/16 at 21:00; Stop 03/22/16 at 14:48; Status DC Trimethoprim/ Sulfamethoxazole (Bactrim 800-160 Mg/20 ml Liq) 20 ml Q12HR PO Last administered on 03/14/16at 08:01; Start 03/07/16 at 11:15; Stop 03/14/16 at 11:14; Status DC Lorazepam (Ativan Inj) 0.5 mg Q4H PRN IV PUSH seizures or agitation; Start at 23:00 Metronidazole (Flagyl) 500 mg Q8H PO Last administered on 03/14/16at 15:51; Start 03/08/16 at 17:00; Stop 03/14/16 at 23:00; Status DC Warfarin Sodium (Coumadin) 2 mg DAILY@16 PO Last administered on 03/09/16at 17: 20; Start 03/09/16 at 16:00; Stop 03/10/16 at 10:33; Status DC Paroxetine HCl (Paxil) 20 mg DAILY@1900 PEG Last administered on 03/11/16at 17: 55; Start 03/09/16 at 19:00; Stop 03/12/16 at 08:31; Status DC Warfarin Sodium 3 mg 3 mg DAILY@16 PO Last administered on 04/12/16at 15:28; Start 03/10/16 at 16:00; Stop 04/12/16 at 16:39; Status DC Pharmacy Profile Note 0 ml @ 0 mls/hr UNSCH OTHER ; Start 03/10/16 at 14:15; Stop 03/18/16 at 11:33; Status DC Vancomycin HCl/ Sodium Chloride (Vancomycin Inj/ NS 500 ml Inj) 530 ml @ 265 mls/hr Q12H IV Last administered on 03/17/16at 16:26; Start 03/10/16 at 16:00; Stop 03/17/16 at 23:00; Status DC Miscellaneous Information SPECIFIC LAB TO BE . ONCE ONCE XX Last administered on 03/12/16at 04:45; Start 03/12/16 at 03:45; Stop 03/12/16 at 03:46 ; Status DC Metoprolol Tartrate (Lopressor) 75 mg Q8HR PO Last administered on 04/02/16at 13 :13; Start 03/10/16 at 22:00; Stop 04/02/16 at 17:31; Status DC Paroxetine HCl (Paxil Liq) 20 mg DAILY@1900 PEG Last administered on 10/27/16t 17:47; Start 03/12/16 at 19:00 Warfarin Sodium (Coumadin) 1 mg ONCE PO Last administered on 03/21/16at 16:24; Start 03/21/16 at 16:00; Stop 03/21/16 at 21:00; Status DC Warfarin Sodium (Coumadin) 1 mg ONCE PO Last administered on 03/22/16at 17:46; Start 03/22/16 at 16:00; Stop 03/22/16 at 21:00; Status DC Insulin Detemir (Levemir Inj) 32 units HS SQ Last administered on 03/22/16at 20: 18; Start 03/22/16 at 21:00; Stop 03/23/16 at 13:35; Status DC Diltiazem HCl (Cardizem Cd) 120 mg DAILY PO Last administered on 04/14/16at 07: 43; Start 03/22/16 at 16:00; Stop 04/14/16 at 14:39; Status DC Hyoscyamine Sulfate (Levsin Liq) 0.125 mg Q4H PRN PEG INCREASED SECRETIONS Last administered on 04/10/16at 08:05; Start 03/22/16 at 15:15; Stop 04/11/16 at 10:24; Status DC Warfarin Sodium (Coumadin) 2 mg ONCE ONCE PO Last administered on 03/23/16at 17: 26; Start 03/23/16 at 16:00; Stop 03/23/16 at 16:01; Status DC Insulin Detemir (Levemir Inj) 34 units HS SQ Last administered on 03/23/16at 20: 01; Start 03/23/16 at 21:00; Stop 03/24/16 at 13:53; Status DC Insulin Detemir (Levemir Inj) 35 units HS SQ Last administered on 10/27/16 21: 50; Start 03/24/16 at 21:00 Insulin Aspart (NovoLOG SUPPLEMENTAL SCALE) 1 ACHS SLIDING SCALE SQ Last administered on 04/16/16at 22:27; Start 03/24/16 at 16:00; Stop 04/19/16 at 17:19 ; Status DC Warfarin Sodium (Coumadin) 1 mg ONCE ONCE PO Last administered on 03/30/16at 16 :59; Start 03/30/16 at 16:00; Stop 03/30/16 at 16:01; Status DC Potassium Chloride (KCl 40 Meq/30 ml Liq) 40 meq ONCE ONCE NG Last administered on 03/31/16at 21:28; Start 03/31/16 at 18:30; Stop 03/31/16 at 18:31 ; Status DC Potassium Bicarb/ Potassium Chloride (K-Lyte Cl Eff) 25 meq ONCE ONCE PEG Last administered on 04/02/16at 12:01; Start 04/02/16 at 13:00; Stop 04/02/16 at 13:01; Status DC Metoprolol Tartrate (Lopressor) 75 mg BID PO Last administered on 05/28/16at 21: 03; Start 04/02/16 at 21:00; Stop 05/29/16 at 11:21; Status DC Potassium Bicarb/ Potassium Chloride (K-Lyte Cl Eff) 25 meq ONCE ONCE PEG Last administered on 04/04/16at 14:40; Start 04/04/16 at 12:30; Stop 04/04/16 at 12:31; Status DC Linezolid (Zyvox) 600 mg Q12HR PO Last administered on 04/16/16at 09:11; Start 04/05/16 at 15:00; Stop 04/16/16 at 12:00; Status DC Artificial Tears (Lacrilube Opht Oint) 1 applic Q12HR EACH EYE Last administered on 09/04/16 21:00; Start 04/10/16 at 11:00; Stop 09/05/16 at 14:38 ; Status DC Hyoscyamine Sulfate (Levsin) 0.25 mg Q4H PRN G-TUBE INCREASED SECRETIONS Last administered on 08/31/16 05:02; Start 9/22/16 at 10:30 Diatrizoate Meglum/ Diatrizoate Sod ([place] Liq) 18 ml ONCE ONCE PO Last administered on 04/12/16at 16:45; Start 04/12/16 at 16:15; Stop 04/12/16 at 16:16; Status DC Warfarin Sodium (Coumadin) 3 mg DAILY@16 PO ; Start 04/13/16 at 16:00; Stop 05/27/16 at 11:51; Status DC Iohexol (Omnipaque 350 Inj) 98 ml STK-MED ONCE IV Last administered on at 21:01; Start 04/12/16 at 21:01; Stop 04/12/16 at 21:02; Status DC Diltiazem HCl (Cardizem Cd) 180 mg DAILY PO ; Start 04/15/16 at 09:00; Stop at 08:50; Status DC Ondansetron HCl (Zofran Inj) 4 mg Q6HR PRN IV PUSH nausea/vomiting Last administered on 08/10/16t 10:16; Start 04/14/16 at 19:45 Diltiazem HCl 60 mg 60 mg QID PO Last administered on 04/25/16at 17:26; Start at 13:00; Stop 04/25/16 at 19:06; Status DC Sodium Chloride 500 ml @ 500 mls/hr BOLUS ONCE IV Last administered on at 09:15; Start 04/15/16 at 09:15; Stop 04/15/16 at 10:14; Status DC Potassium Chloride/Dextrose/ Sodium Chloride (KCl Inj/D5W-NS 1000 ml Inj) 1,005 ml @ 100 mls/hr Q10H3M IV Last administered on 04/15/16at 21:03; Start at 11:00; Stop 04/16/16 at 09:09; Status DC Enoxaparin Sodium (Lovenox Inj) 90 mg Q12H SQ Last administered on 04/16/16at 21 :12; Start 04/16/16 at 09:00; Stop 04/17/16 at 10:37; Status DC Water 200 ml 200 ml Q4HR TUBE Last administered on 10/28/16 08:00; Start 04/16 at 12:00 Sodium Chloride 1,000 ml @ 84 mls/hr [id number] IV Last administered on at 08:38; Start 04/16/16 at 10:00; Stop 04/20/16 at 12:04; Status DC Ceftriaxone Sodium/Sodium Chloride (Rocephin Inj/NS Inj) 100 ml @ 200 mls/hr Q24H IV Last administered on 05/02/16at 13:19; Start 04/16/16 at 12:00; Stop 05/03/16 at 12:06; Status DC Acetaminophen/ Hydrocodone Bitart ([place] 5-325 Mg) 1 tab Q6HR PEG Last administered on 09/17/16t 06:42; Start 04/18/16 at 18:00; Stop 09/17/16 at 09:17 ; Status DC Lactulose (Lactulose Liq) 30 ml NOW ONCE PEG Last administered on 04/19/16at 17 :21; Start 04/19/16 at 17:30; Stop 04/19/16 at 17:31; Status DC Lactulose (Lactulose Liq) 30 ml DAILY PEG Last administered on 05/26/16at 08:14 ; Start 04/20/16 at 09:00; Stop 05/27/16 at 11:39; Status DC Potassium Bicarb/ Potassium Chloride (K-Lyte Cl Eff) 50 meq ONCE ONCE PO Last administered on 04/20/16at 05:52; Start 04/20/16 at 05:45; Stop 04/20/16 at 05:46; Status DC Furosemide (Lasix Inj) 20 mg ONCE ONCE IV PUSH Last administered on 04/20/16at 17:35; Start 04/20/16 at 12:00; Stop 04/20/16 at 12:06; Status DC Insulin Aspart (NovoLOG SUPPLEMENTAL SCALE) 1 ACHS SLIDING SCALE SQ Last administered on 06/02/16at 12:10; Start 04/20/16 at 16:00; Stop 06/02/16 at 21: 44; Status DC Dextrose (D50w (Vial) Inj) 25 ml UNSCH PRN IV HYPOGLYCEMIA-SEE COMMENTS; Start 04/20/16 at 12:00 Glucagon (Glucagon Inj) 1 mg UNSCH PRN IM/SQ HYPOGLYCEMIA-SEE COMMENTS; Start 04/20/16 at 12:00 Lactobacillus Acidophilus (Lactinex) 1 tab Q12HR PEG Last administered on 06/06at 21:34; Start 04/22/16 at 09:00; Stop 06/07/16 at 09:32; Status DC Furosemide (Lasix Inj) 20 mg Q12H IV PUSH Last administered on 04/24/16at 08:52 ; Start 04/22/16 at 09:00; Stop 04/24/16 at 09:25; Status DC Potassium Bicarb/ Potassium Chloride (K-Lyte Cl Eff) 25 meq Q12HR TUBE Last administered on 05/27/16at 08:17; Start 04/22/16 at 09:00; Stop 05/27/16 at 11:51 ; Status DC Albumin Human (Albumin 25% Inj) 12.5 gm Q12H IV Last administered on 04/24/16at 08:46; Start 04/22/16 at 09:00; Stop 04/24/16 at 09:25; Status DC Furosemide (Lasix Inj) 20 mg DAILY IV PUSH Last administered on 05/08/16at 09: 01; Start 04/25/16 at 09:00; Stop 05/08/16 at 11:06; Status DC Albumin Human (Albumin 25% Inj) 12.5 gm DAILY IV Last administered on at 09:02; Start 04/25/16 at 10:00; Stop 05/08/16 at 11:06; Status DC Furosemide (Lasix Inj) 40 mg ONCE ONCE IV PUSH Last administered on 04/25/16at 18:15; Start 04/25/16 at 18:15; Stop 04/25/16 at 18:16; Status DC Albuterol/ Ipratropium (Duoneb Neb) 1 ampule Q6HR NEB NEB Last administered on 04/27/16at 15:52; Start 04/25/16 at 18:30; Stop 04/27/16 at 19:45; Status DC Ipratropium [place] (Atrovent Neb) 0.5 mg Q6HR NEB NEB Last administered on at 16:51; Start 04/25/16 at 22:00; Stop 04/27/16 at 16:44; Status DC Levalbuterol HCl (Xopenex Neb) 0.31 mg Q4HR NEB NEB Last administered on at 23:48; Start 04/25/16 at 20:00; Stop 04/27/16 at 16:43; Status DC Levalbuterol HCl (Xopenex Neb) 0.31 mg Q2HR NEB PRN NEB SHORTNESS OF BREATH; Start 04/25/16 at 18:45; Stop 04/28/16 at 10:50; Status DC Diltiazem HCl (Cardizem) 90 mg QID PEG Last administered on 07/17/16at 09:27; Start 04/25/16 at 21:00; Stop 07/17/16 at 17:52; Status DC Diltiazem HCl (Cardizem) 30 mg NOW ONCE PEG Last administered on 04/25/16at 21: 36; Start 04/25/16 at 19:15; Stop 04/25/16 at 19:16; Status DC Levalbuterol HCl (Xopenex Neb) 0.31 mg Q8HR NEB NEB ; Start 04/28/16 at 00:00; Stop 04/28/16 at 10:50; Status DC Levalbuterol HCl (Xopenex Neb) 0.63 mg Q4HR NEB PRN NEB SHORTNESS OF BREATH Last administered on 05/04/16at 15:26; Start 04/28/16 at 11:00; Stop 05/04/16 at 00:51; Status DC Levalbuterol HCl (Xopenex Neb) 0.63 mg Q8HR NEB NEB Last administered on 05/04at 00:07; Start 04/28/16 at 16:00; Stop 05/04/16 at 00:50; Status DC Polyethylene Glycol/ Electrolytes 4000 ml 4,000 ml ONCE ONCE PO Last administered on 05/05/16at 08:10; Start 05/05/16 at 08:45; Stop 05/05/16 at 08 :46; Status DC Cefazolin Sodium/ Dextrose 50 ml @ 100 mls/hr ONCE ONCE IV ; Start 05/06/16 at 14:00; Stop 05/06/16 at 14:29; Status DC Metronidazole 100 ml @ 100 mls/hr ONCE ONCE IV Last administered on at 14:00; Start 05/06/16 at 14:00; Stop 05/06/16 at 14:59; Status DC Ceftriaxone Sodium/Sodium Chloride (Rocephin Inj/NS Inj) 100 ml @ 200 mls/hr Q24H IV Last administered on 06/09/16at 12:36; Start 05/03/16 at 12:00; Stop 06/10/16 at 12:48; Status DC Levalbuterol HCl (Xopenex Neb) 0.63 mg Q8HR NEB NEB Last administered on 05/05at 08:00; Start 05/04/16 at 00:49; Stop 05/05/16 at 08:07; Status DC Levalbuterol HCl (Xopenex Neb) 0.63 mg Q4HR NEB PRN NEB SHORTNESS OF BREATH Last administered on 10/18/16 15:44; Start 05/05/16 at 12:00 Levalbuterol HCl (Xopenex Neb) 0.63 mg Q8HR NEB NEB Last administered on 05/08at 23:56; Start 05/05/16 at 08:15; Stop 05/09/16 at 08:15; Status DC Potassium Bicarb/ Potassium Chloride (K-Lyte Cl Eff) 25 meq DAILY TUBE Last administered on 10/28/16 08:06; Start 05/28/16 at 09:00 Aspirin (Aspirin) 325 mg DAILY TUBE Last administered on 10/28/16 08:06; Start 05/27/16 at 11:40 Docusate Sodium (Colace Liq) 100 mg DAILY PRN PO constipation Last administered on 08/16/16 21:09; Start 05/27/16 at 11:45; Stop 08/31/16 at 09:00 ; Status DC Metoprolol Tartrate (Lopressor) 50 mg BID PO Last administered on 08/23/16 09: 03; Start 05/29/16 at 21:00; Stop 08/23/16 at 15:33; Status DC Acetaminophen/ Hydrocodone Bitart ([place] 5-325 Mg) 1 tab Q6H PRN TUBE BREAKTHROUGH PAIN Last administered on 08/02/16 15:11; Start 06/03/16 at 03:00 ; Stop 09/17/16 at 14:33; Status DC Insulin Aspart (NovoLOG SUPPLEMENTAL SCALE) 1 ACHS SLIDING SCALE SQ Last administered on 06/06/16at 21:35; Start 06/03/16 at 07:00; Stop 06/07/16 at 12 :24; Status DC Lactobacillus Acidophilus (Lactinex) 1 tab TID PEG Last administered on 09:13; Start 06/07/16 at 13:00; Stop 10/13/16 at 12:08; Status DC Insulin Aspart 1 1 AC BREAKFAST SQ Last administered on 10/28/16 06:13; Start 06/08/16 at 07:00 Ceftriaxone Sodium/Sodium Chloride (Rocephin Inj/NS Inj) 100 ml @ 200 mls/hr Q24H IV Last administered on 07/28/16 12:19; Start 06/10/16 at 12:00; Stop 07/29/16 at 13:30; Status DC Heparin Sodium (Porcine) (Heparin Inj) 5,000 units Q12HR SQ Last administered on 06/11/16at 00:58; Start 06/10/16 at 14:15; Stop 06/11/16 at 06:21; Status DC Heparin Sodium (Porcine) (Heparin Inj) 5,000 units Q8HR SQ Last administered on 10/28/16 05:46; Start 06/11/16 at 14:00 Diltiazem HCl (Cardizem) 30 mg QID PEG Last administered on 08/16/16 08:31; Start 07/17/16 at 18:00; Stop 08/16/16 at 12:06; Status DC Bacitracin 1 applic 1 applic BID TOP Last administered on 10/28/16 08:08; Start 07/20/16 at 10:00 Lactated Ringer's 1,000 ml @ 30 mls/hr Q24H IV ; Start 07/21/16 at 17:45; Stop 08/14/16 at 12:08; Status DC Sodium Chloride (NS 500 ml Inj) 500 ml @ 30 mls/hr [id number] IV ; Start 07/21/16 at 17:45; Stop 07/22/16 at 17:44; Status DC Insulin Human Regular (NovoLIN R INJ) See Protocol Table ... UNSCH X1 PRN SQ SEE PROTOCOL; Start 07/21/16 at 17:45; Stop 07/22/16 at 17:44; Status DC Metoprolol Tartrate (Lopressor) 25 mg UNSCH X1 PRN PO SEE LABEL COMMENTS; Start 07/21/16 at 17:45; Stop 07/22/16 at 17:44; Status DC Lidocaine/ Epinephrine (Xylocaine-Epi 1%-1:100,000 Inj) 40 ml STK-MED ONCE .ROUTE Last administered on 07/22/16 10:56; Start 07/22/16 at 10:04; Stop at 10:05; Status DC Ketamine HCl (Ketalar Inj) 500 mg STK-MED ONCE .ROUTE ; Start 07/22/16 at 10:50; Stop 07/22/16 at 10:51; Status DC Propofol 600 mg 600 mg STK-MED ONCE IV ; Start 07/22/16 at 12:00; Stop 07/23/16 at 14:36; Status DC Dextrose 1,000 ml @ 40 mls/hr Q24H ONCE IV Last administered on 07/28/16 14:33 ; Start 07/28/16 at 14:00; Stop 07/29/16 at 13:59; Status DC Ampicillin Sodium/ Sulbactam Sodium/ Sodium Chloride (Unasyn Inj/NS Inj) 100 ml @ 200 mls/hr Q6H IV Last administered on 08/01/16 12:30; Start 07/29/16 at 14: 00; Stop 08/01/16 at 14:13; Status DC Ondansetron HCl 4 mg 4 mg ONCE ONCE IV PUSH Last administered on 07/30/16 02: 46; Start 07/30/16 at 00:30; Stop 07/30/16 at 00:33; Status DC Lactated Ringer's 1,000 ml @ 30 mls/hr Q24H IV ; Start 07/30/16 at 06:00; Stop 08/14/16 at 12:09; Status DC Sodium Chloride (NS 500 ml Inj) 500 ml @ 30 mls/hr [id number] IV ; Start 07/30/16 at 06:00; Stop 07/31/16 at 05:59; Status DC Pantoprazole Sodium (Protonix Inj) 40 mg Q12H IV PUSH Last administered on 10/28 10:02; Start 07/30/16 at 10:15 Propofol 200 mg 200 mg STK-MED ONCE IV ; Start 07/30/16 at 09:41; Stop 07/30/16 at 10:19; Status DC Piperacillin Sod/ Tazobactam Sod (Zosyn 4.5 Gm Premix) 100 ml @ 200 mls/hr Q6H IV Last administered on 08/07/16 09:37; Start 08/01/16 at 16:00; Stop at 16:10; Status DC Linezolid (Zyvox) 600 mg Q12HR PO Last administered on 08/22/16 09:10; Start at 21:00; Stop 08/22/16 at 15:55; Status DC Sodium Chloride ([place]) 1 spray BID NASAL Last administered on 08:09; Start 08/01/16 at 21:00 Metronidazole 500 mg 500 mg Q8H PO Last administered on 08/08/16 08:28; Start 08/07/16 at 16:00; Stop 08/08/16 at 16:10; Status DC Sodium Chloride (NS 1000 ml Inj) 1,000 ml @ 42 mls/hr [id number] IV Last administered on 08/14/16 12:44; Start 08/14/16 at 12:00; Stop 08/15/16 at 10:56 ; Status DC Fentanyl Citrate (fentaNYL INJ) 250 mcg STK-MED ONCE .ROUTE Last administered on 08/14/16 15:36; Start 08/14/16 at 15:36; Stop 08/14/16 at 15:37; Status DC Iohexol (Omnipaque 350 Inj) 30 ml STK-MED ONCE G-TUBE Last administered on 08/14 15:45; Start 08/14/16 at 15:52; Stop 08/14/16 at 15:53; Status DC Diltiazem HCl (Cardizem) 30 mg QID PEG Last administered on 10/28/16 08:14; Start 08/16/16 at 13:00 Polyethylene Glycol (Miralax) 17 gm ONCE ONCE PEG Last administered on 11:32; Start 08/17/16 at 12:00; Stop 08/17/16 at 12:01; Status DC Amoxicillin 500 mg 500 mg Q8HR PO Last administered on 10/28/16 05:46; Start 08/22/16 at 22:00 Cefepime HCl/ Sodium Chloride (Maxipime Inj/NS Inj) 100 ml @ 200 mls/hr Q8H IV Last administered on 09/03/16 10:46; Start 08/23/16 at 16:00; Stop 09/03/16 at 15:02; Status DC Metoprolol Tartrate (Lopressor) 75 mg BID PO Last administered on 09/13/16 08: 42; Start 08/23/16 at 21:00; Stop 09/13/16 at 13:09; Status DC Docusate Sodium (Colace Liq) 100 mg BID PO Last administered on 10/28/16 08:06 ; Start 08/30/16 at 21:00 Sennosides (Senokot) 17.2 mg DAILY PO Last administered on 09/25/16 08:36; Start 08/30/16 at 14:00; Stop 09/25/16 at 16:09; Status DC Lactulose (Lactulose Liq) 30 ml DAILY PO Last administered on 10/28/16 08:05; Start 09/02/16 at 15:30 Artificial Tears (Tears Naturale Opth Soln) 1 drop BID EACH EYE Last administered on 10/28/16 08:10; Start 09/05/16 at 21:00 Midazolam HCl (Versed Inj) 2 mg STK-MED ONCE .ROUTE Last administered on 11:37; Start 09/09/16 at 11:37; Stop 09/09/16 at 11:38; Status DC Fentanyl Citrate (fentaNYL INJ) 100 mcg STK-MED ONCE .ROUTE Last administered on 09/09/16 11:38; Start 09/09/16 at 11:38; Stop 09/09/16 at 11:39; Status DC Iohexol (Omnipaque 350 Inj) 20 ml STK-MED ONCE G-TUBE Last administered on 09/09 11:50; Start 09/09/16 at 11:50; Stop 09/09/16 at 12:15; Status DC Metoprolol Tartrate (Lopressor) 50 mg BID PO Last administered on 10/28/16 08: 14; Start 09/13/16 at 21:00 Acetaminophen/ Hydrocodone Bitart ([place] 5-325 Mg) 1 tab Q6H PEG ; Start at 11:00; Stop 09/17/16 at 14:25; Status DC Acetaminophen/ Hydrocodone Bitart ([place] 5-325 Mg) 1 tab DAILY@1600 PO ; Start 09/17/16 at 16:00; Stop 09/17/16 at 16:00; Status DC Morphine Sulfate (Morphine Inj) 1 mg Q24H PRN IV PUSH dressing change 30 min before Last administered on 10/22/16 02:00; Start 09/17/16 at 14:30 Acetaminophen/ Hydrocodone Bitart ([place] 5-325 Mg) 1 tab DAILY@0000 PO Last administered on 09/17/16 23:43; Start 09/18/16 at 00:00; Stop 09/20/16 at 12:46; Status DC Acetaminophen/ Hydrocodone Bitart ([place] 5-325 Mg) 1 tab Q8H PO Last administered on 10/13/16 13:38; Start 09/20/16 at 13:00; Stop 10/13/16 at 18:29 ; Status DC Ketoconazole (Nizoral 2% Cream) 1 applic Q12HR TOPICAL Last administered on 10/27 07:49; Start 09/24/16 at 21:00 Sennosides (Senna Liq) 8.8 mg DAILY@1600 PO Last administered on 10/27/16 15: 15; Start 09/25/16 at 17:00 Sodium Biphosphate/ Sodium Phosphate (Fleets Enema (Adult)) 133 ml UNSCH PRN PA CONSTIPATION; Start 09/25/16 at 16:00 Bisacodyl (Dulcolax Supp) 10 mg DAILY PRN RECTAL CONSTIPATION Last administered on 10/20/16 12:53; Start 09/26/16 at 15:30 Bisacodyl (Dulcolax Supp) 10 mg ONCE ONCE RECTAL Last administered on 16:10; Start 09/26/16 at 15:30; Stop 09/26/16 at 15:31; Status DC Cyclobenzaprine HCl (Flexeril) 5 mg Q8H PO Last administered on 10/13/16 13:37 ; Start 10/13/16 at 12:15; Stop 10/13/16 at 18:27; Status DC Magnesium Hydroxide (Milk Of Magnesia Liq) 30 ml DAILY PRN PO constipation Last administered on 10/20/16 12:54; Start 10/13/16 at 14:30 Acetaminophen/ Hydrocodone Bitart ([place] 5-325 Mg) 1 tab Q6H PRN PO PAIN SCALE 1 TO 10; Start 10/13/16 at 18:30; Stop 10/13/16 at 18:30; Status DC Acetaminophen/ Hydrocodone Bitart ([place] 5-325 Mg) 1 tab Q6H PRN PO PAIN SCALE 1 TO 10 Last administered on 10/26/16 18:15; Start 10/13/16 at 18:45 Cyclobenzaprine HCl (Flexeril) 5 mg HS PRN PO muscle relaxant Last administered on 10/22/16 21:17; Start 10/14/16 at 14:15 Fentanyl Citrate (fentaNYL INJ) 100 mcg STK-MED ONCE .ROUTE ; Start 10/23/16 at 16:51; Stop 10/23/16 at 16:52; Status DC Glycerin (Glycerin Adult Supp) 2 gm ONCE ONCE RECTAL Last administered on 15:29; Start 10/26/16 at 15:00; Stop 10/26/16 at 15:01; Status DC Nitrofurantoin Macrocrystals (Macrobid) 100 mg BIDPC PO Last administered on 08:05; Start 10/26/16 at 15:00; Stop 10/29/16 at 14:59 Date of Insertion: Oct 12, 2016 A/P Assessment and Plan A/P 60-year-old male with: CVA Paraplegia 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 Recovery is not expected to occur. Medicaid with SSI pending. Recent Fever Could be from UTI or Decubitus ulcer Continue Nitrofurantoin till the end of the course of treatment. Constipation Resolved Follow for recurrence Clogged PEG tube Has occured on 10/14 and 10/23 Follow for recurrence Continue Flushes GI if replacement needed Chronic respiratory failure Related to CVA Continue trach management PRN Levsin Atrial fibrillation Cardizem Metoprolol Follow heart rate History of non-Hodgkin's lymphoma Follow clinically Diabetes mellitus Follow blood sugars Decubitus ulcer stage IV: Wound care Frequent turns Colostomy declined by family (inability to divert feces in this chronic setting increases risks with ulcer and for recurrence of ulcers) Chronic [place] Follow for UTIs Hx of Gastric Ulcer Follow clinically PPI Monitor H/H intermittantly FEN: Continue Nepro tube feeds. Appreciate dietary recommendations. Continue free water flushes. Supplement potassium. DVT prophylaxis: SCDs. Discharge Planning dc planning to SNF-no funding- SSI pending. Medardo Au MD Oct 28, 2016 10:39
--- NOTE | 2016-10-28 15:02 | HHI.PR ---
Subjective Remarks opens eyes on o2 , o2 SAT 96 on T PIECE Objective Vital Signs Date Time Temp Pulse Resp B/P Pulse Ox O2 Delivery O2 Flow Rate FiO2 10/28/16 12:00 96.5 86 20 116/72 96 10/28/16 09:41 100 T-piece 28 10/28/16 08:00 93 20 115/72 93 10/28/16 06:30 98.8 90 18 125/75 100 10/28/16 02:23 100 T-Piece 28 10/27/16 23:45 98.1 84 17 115/65 100 10/27/16 21:30 100 T-Piece 28 10/27/16 21:00 97.7 90 17 111/67 100 10/27/16 20:32 99 T-piece 6.00 10/27/16 19:17 88 10/27/16 16:00 97.5 87 21 109/64 96 I/O 10/27/16 10/27/16 10/27/16 10/28/16 10/28/16 10/28/16 07:00 15:00 23:00 07:00 15:00 23:00 Intake Total 1390 ml 0 ml 1380 ml Output Total 1000 ml 950 ml 700 ml Balance 390 ml -950 ml -700 ml 1380 ml Intake Oral 0 ml 0 ml Tube Feeding 790 ml 780 ml Other 600 ml 600 ml Output Urine Total 1000 ml 950 ml 700 ml # Bowel Movements 1 2 1 Procedures 01/02/16 PEG placement 01/02/16 tracheostomy 07/22/2016 Wide excision of sacral skin wound, biopsy of the cavity lining and debridement. PEG tube replacement 07/29/16 Objective Remarks GENERAL: SKIN: Warm and dry. HEAD: Atraumatic. Normocephalic. EYES: Pupils equal and round. No scleral icterus. No injection or drainage. ENT: No nasal bleeding or discharge. Mucous membranes pink and moist. NECK: Trachea midline. No JVD. TRACH. [place] CARDIOVASCULAR: Regular rate and rhythm. RESPIRATORY: No accessory muscle use. Clear to auscultation. Breath sounds equal bilaterally. GASTROINTESTINAL: Abdomen soft, non-tender, nondistended. Hepatic and splenic margins not palpable. MUSCULOSKELETAL: Extremities without clubbing, cyanosis, or edema. No obvious deformities. NEUROLOGICAL: Awake and alert. No obvious cranial nerve deficits. Motor grossly within normal limits. Five out of 5 muscle strength in the arms and legs. Normal speech. PSYCHIATRIC: Appropriate mood and affect; insight and judgment normal. Assessment and Plan Assessment and Plan impression respiratory failure CVA S/P TRACHEOSTOMY PLAN O2 NEEDED PULM. TOILET Brandon Taylor MD Oct 28, 2016 15:02
[2016-10-28] MEDS: SENNOSIDES SYRUP 8.8 MG/5 ML CUP PO SCH (16:54)
[2016-10-28] MEDS: PARoxetine HCL SUSP 20 MG/10 ML UDC PEG SCH (18:35)
[2016-10-28] MEDS: INSULIN DETEMIR 100 UNITS/ML VIAL SQ SCH (20:50)
[2016-10-28] MEDS: ACETAMINOPHEN/HYDROcodone 325 MG/5 MG TAB PO PRN (20:53)
[2016-10-29] VITALS (11 sets, daily range): BP systolic 101–125; BP diastolic 69–81; PULSE 78–100; RESP 16–22; TEMP 95.4–97.7; O2SAT 94–100
[2016-10-29] MEDS: FREE WATER TUBE SCH ×6 (03:41→20:00)
[2016-10-29] MEDS: ACETIC ACID 0.25% SOLN 1000 ML IRR BTL IRRIGATION SCH ×4 (03:41→22:06)
[2016-10-29] MEDS: HEPARIN SODIUM - SQ 10,000 UNITS/ML VIAL SQ SCH ×3 (05:47→22:06)
[2016-10-29] MEDS: INSULIN ASPART SUPPLEMENTAL SCALE SQ SCH (05:48)
[2016-10-29] MEDS: AMOXICILLIN (TRIHYDRATE) 500 MG CAP PO SCH ×3 (05:48→22:09)
[2016-10-29] MEDS: ARTIFICIAL TEARS OPTH SOLN 15 ML BTL EACH EYE SCH ×2 (09:00→22:07)
[2016-10-29] MEDS: KETOCONAZOLE 2% CREAM 15 GM TOPICAL SCH ×2 (09:00→22:08)
[2016-10-29] MEDS: SODIUM CHLORIDE 0.65% NASAL SPRAY 45 ML BTL NASAL SCH ×2 (09:00→22:07)
[2016-10-29] MEDS: METOPROLOL TARTRATE 50 MG TAB PO SCH ×2 (09:36→22:05)
[2016-10-29] MEDS: POTASSIUM CHLORIDE 25 MEQ EFFERVESCENT TAB TUBE SCH (09:36)
[2016-10-29] MEDS: NITROFURANTOIN MONOHYD MACROCR 100 MG CAP PO SCH (09:36)
[2016-10-29] MEDS: DOCUSATE SODIUM 100 MG/10 ML UDC PO SCH ×2 (09:36→22:05)
[2016-10-29] MEDS: LACTULOSE SYRUP 20 GM/30 ML CUP PO SCH (09:36)
[2016-10-29] MEDS: levETIRAcetam 500 MG/5 ML UDC TUBE SCH ×2 (09:36→22:05)
[2016-10-29] MEDS: ASPIRIN 325 MG TAB TUBE SCH (09:37)
[2016-10-29] MEDS: DILTIAZEM HCL 30 MG TAB PEG SCH ×4 (09:37→22:07)
[2016-10-29] MEDS: BACITRACIN TOP OINT 15 GM TUBE TOP SCH ×2 (09:43→22:09)
[2016-10-29] MEDS: NYSTATIN 100,000 U/GM PWD 15 GM BTL TOPICAL SCH ×2 (09:43→22:07)
[2016-10-29] MEDS: PANTOPRAZOLE SODIUM 40 MG VIAL IV PUSH SCH ×2 (10:05→22:06)
--- NOTE | 2016-10-29 11:37 | HHI.PR ---
Subjective Remarks looks comfortable with no distress. no fever. d/w the RN and no acute issues over night. Objective Vitals Vital Signs Date Time Temp Pulse Resp B/P Pulse Ox O2 Delivery O2 Flow Rate FiO2 10/29/16 11:00 98 T-piece 28 10/29/16 08:00 95.6 100 21 125/81 99 10/29/16 04:00 96.5 85 20 116/70 97 10/29/16 00:19 97.7 85 20 105/74 99 10/28/16 22:25 98 T-piece 5.00 28 10/28/16 21:59 96 10/28/16 20:00 98.5 98 20 111/71 99 10/28/16 18:42 93/59 10/28/16 16:00 97.7 95 20 142/79 98 10/28/16 12:00 96.5 86 20 116/72 96 I/O 10/28/16 10/28/16 10/28/16 10/29/16 10/29/16 10/29/16 07:00 15:00 23:00 07:00 15:00 23:00 Intake Total 1380 ml 0 ml 1420 ml 390 ml Output Total 750 ml 650 ml Balance 1380 ml -750 ml 770 ml 390 ml Intake Oral 0 ml Tube Feeding 780 ml 1020 ml 390 ml Other 600 ml 400 ml Output Urine Total 750 ml 650 ml # Bowel Movements 2 Imaging Last Impressions Tube Change 10/23/16 0000 Signed Impressions: Service Date/Time: Sunday, October 23, 2016 16:34 - CONCLUSION: Uncomplicated gastrojejunostomy tube exchange as above. Existing tube was patent with some luminal narrowing. The balloon port was damaged and leaking, however. Bobby Gray MD Chest X-Ray 10/18/16 0000 Signed Impressions: Service Date/Time: Tuesday, October 18, 2016 19:17 - CONCLUSION: 1. Minimal right perihilar streakiness consistent with probable atelectasis. 2. Elevation of the right hemidiaphragm. 3. Tracheostomy tube in good position above the geno. Eduardo Valenzuela MD Abdomen X-Ray 08/31/16 0000 Signed Impressions: Service Date/Time: Wednesday, August 31, 2016 16:36 - CONCLUSION: 1. No acute findings. Mild constipation. Durga Dotson MD Abdomen/Pelvis CT 04/12/16 0000 Signed Impressions: Service Date/Time: Tuesday, April 12, 2016 20:52 - CONCLUSION: 1. 6.4 cm necrotic mass or abscess in the soft tissues posteriorly just below the sacrum associated with some bony destructive change of the lower most sacrum and coccyx with inflammatory changes extending into the ischiorectal fossa and into the presacral retroperitoneum predominantly on the left side. There is associated fairly marked mural thickening of the anal verge and rectum. 2. There is gastrostomy and Arevalo catheter present. Stable abdominal aortic aneurysm. Durga Dotson MD Head Magnetic Resonance Angiography 03/05/16 0000 Signed Impressions: Service Date/Time: Saturday, March 05, 2016 09:26 - CONCLUSION: Persistent high-grade subtotal occlusive stenotic lesions in the distal right vertebral artery and proximal basilar artery with significant improvement in flow and recanalization following initial presentation of thrombosis. Stable interstitial circulation without significant stenosis. 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 There is decreasing restricted diffusion and increasing loss of volume characteristic of a subacute to chronic infarct. No evidence of acute infarct, acute hemorrhage mass or edema. Ernesto Kulkarni MD Head CT 01/16/16 0000 Signed Impressions: Service Date/Time: Saturday, January 16, 2016 10:51 - CONCLUSION: No extensive low density in the brainstem colin more prominent in the right the left extending into the right middle cerebellar peduncle consistent with brainstem infarct nonhemorrhagic acute Wellington West MD Neck Magnetic Resonance Angiography 12/22/15 1445 Signed Impressions: Service Date/Time: Tuesday, December 22, 2015 09:22 - CONCLUSION: Variant origin of the left vertebral artery from the aortic arch. No evidence of carotid stenosis. Glen Zamora MD Head/Brain Mag Res Venography 12/22/15 0000 Signed Impressions: Service Date/Time: Tuesday, December 22, 2015 09:22 - CONCLUSION: Normal MRV. Jonel Jones Jr., MD Objective Remarks GENERAL: on Trach- in no apparent distress. CARDIOVASCULAR: Regular rate and regular rhythm without murmurs, gallops, or rubs. RESPIRATORY: Clear to auscultation. Breath sounds equal bilaterally. No wheezes , rales, or rhonchi. GASTROINTESTINAL: Abdomen soft, non-tender,distended. hypoactive bowel sounds-PEG in place MUSCULOSKELETAL: Extremities without clubbing, cyanosis, or edema. NEURO: awake Procedures 01/02/16 PEG placement 01/02/16 tracheostomy 07/22/2016 Wide excision of sacral skin wound, biopsy of the cavity lining and debridement. PEG tube replacement 07/29/16 VAC changes- M-W-F 4/5- GJ tube replacement Medications and IVs Current Medications IV Flush (NS Flush) 2 ml UNSCH PRN IVF FLUSH AFTER USING IV ACCESS Last administered on 09/28/16t 21:18; Start 12/21/15 at 06:00 Ondansetron HCl (Zofran Inj) 4 mg STK-MED ONCE .ROUTE ; Start 12/21/15 at 06:22; Stop 12/21/15 at 06:23; Status DC Ondansetron HCl (Zofran Inj) 4 mg ONCE ONCE IV PUSH Last administered on at 06:43; Start 12/21/15 at 06:30; Stop 12/21/15 at 06:31; Status DC Diltiazem HCl 20 mg 20 mg ONCE ONCE IV Last administered on 12/21/15at 06:42; Start 12/21/15 at 06:30; Stop 12/21/15 at 06:31; Status DC Diltiazem HCl/ Sodium Chloride (Cardizem Inj/NS Inj) 125 ml @ 0 mls/hr TITRATE IV Last administered on 12/21/15at 06:47; Start 12/21/15 at 06:30; Stop 12/21/15 at 13:00; Status DC Acetaminophen (Tylenol) 650 mg ONCE ONCE PO ; Start 12/21/15 at 06:45; Stop 12/20 at 06:46; Status DC Lorazepam (Ativan Inj) 1 mg ONCE ONCE IV PUSH Last administered on 12/21/15at 07 :22; Start 12/21/15 at 07:15; Stop 12/21/15 at 07:16; Status DC Etomidate (Amidate Inj) 40 mg STK-MED ONCE .ROUTE Last administered on at 08:17; Start 12/21/15 at 07:37; Stop 12/21/15 at 07:38; Status DC Succinylcholine Chloride 200 mg 200 mg STK-MED ONCE .ROUTE Last administered on 12/21/15at 08:18; Start 12/21/15 at 07:37; Stop 12/21/15 at 07:38; Status DC Propofol (Diprivan 1000 Mg/100ml Inj) 100 ml @ As Directed STK-MED ONCE .ROUTE Last administered on 12/21/15at 08:19; Start 12/21/15 at 07:46; Stop 12/21/15 at 07:47; Status DC Propofol (Diprivan 1000 Mg/100ml Inj) search Sets for Drip. NOW PRN IV SEDATION Last administered on 12/22/15at 06:25; Start 12/21/15 at 08:30; Stop 12/28 at 15:43; Status DC Gadodiamide (Omniscan Pf Inj) 18 ml STK-MED ONCE IV Last administered on at 10:11; Start 12/21/15 at 10:11; Stop 12/21/15 at 10:12; Status DC Pantoprazole Sodium (Protonix Inj) 40 mg DAILY IV Last administered on at 07:39; Start 12/21/15 at 13:00; Stop 01/03/16 at 10:10; Status DC Albuterol/ Ipratropium (Duoneb Neb) 1 ampule Q6HR NEB INH Last administered on 12/25/15at 07:51; Start 12/21/15 at 13:00; Stop 12/25/15 at 13:00; Status DC Miscellaneous Information 1 [id number] Last administered on 12/21/15at 13:00; Start 12/21/15 at 13:00; Stop 01/12/16 at 11:47; Status DC Chlorhexidine Gluconate (Chlorhexidine 2% Cloth) 3 pack Taper DAILY@04 TOP Last administered on 01/11/16at 04:10; Start 12/22/15 at 04:00; Stop 01/12/16 at 11:47; Status DC Chlorhexidine Gluconate 3 pack 3 pack UNSCH PRN TOP HYGIENIC CARE; Start at 13:00; Stop 01/12/16 at 11:47; Status DC Sodium Chloride (NS 1000 ml Inj) 1,000 ml @ 75 mls/hr [id number] IV Last administered on 12/22/15at 17:00; Start 12/21/15 at 13:00; Stop 12/22/15 at 19:01; Status DC Dextrose (D50w (Vial) Inj) 25 ml UNSCH PRN IV PUSH HYPOGLYCEMIA-SEE COMMENTS; Start 12/21/15 at 13:00; Stop 04/19/16 at 17:19; Status DC Glucagon (Glucagon Inj) 1 mg UNSCH PRN OTHER HYPOGLYCEMIA-SEE COMMENTS; Start 12/21/15 at 13:00; Stop 04/19/16 at 17:19; Status DC Insulin Human Regular (NovoLIN R SUPPLEMENTAL SCALE) 1 Q6H SQ Last administered on 01/04/16at 06:31; Start 12/21/15 at 13:00; Stop 01/04/16 at 10:05 ; Status DC Levetriacetam (Keppra) 500 mg Q12HR PO Last administered on 12/27/15at 09:00; Start 12/21/15 at 13:45; Stop 12/27/15 at 09:44; Status DC Heparin Sodium (Porcine) (Heparin Inj) 5,000 units BID SQ Last administered on 12/22/15at 20:52; Start 12/21/15 at 21:00; Stop 12/23/15 at 08:32; Status DC Warfarin Sodium (Coumadin) 7.5 mg ONCE ONCE PO Last administered on 12/21/15at 21:43; Start 12/21/15 at 21:00; Stop 12/21/15 at 21:01; Status DC Warfarin Sodium (Coumadin) 5 mg DAILY@16 PO Last administered on 12/23/15at 16:00 ; Start 12/22/15 at 16:00; Stop 12/26/15 at 09:29; Status DC Patient Medication Teaching (Coumadin Booklet) 1 ONCE ONCE XX Last administered on 12/21/15at 20:15; Start 12/21/15 at 20:15; Stop 12/21/15 at 20:16; Status DC Chlorhexidine Gluconate (Peridex 0.12% Liq) 15 ml BID@08,20 MT Last administered on 01/12/16at 08:00; Start 12/22/15 at 20:00; Stop 01/12/16 at 11:47 ; Status DC Gadodiamide 20 ml 20 ml STK-MED ONCE IV Last administered on 12/22/15at 09:55; Start 12/22/15 at 09:55; Stop 12/22/15 at 09:56; Status DC Pharmacy Profile Note ml @ 0 mls/hr UNSCH OTHER ; Start 12/22/15 at 11:00; Stop 12/22/15 at 19:43; Status DC Sodium Chloride 1,000 ml @ 50 mls/hr Q20H IV Last administered on 12/24/15at 20: 02; Start 12/22/15 at 18:44; Stop 12/25/15 at 11:52; Status DC Pharmacy Profile Note (Coumadin Consult Pharmacy) 0 ml @ 0 mls/hr UNSCH OTHER ; Start 12/22/15 at 19:45; Stop 01/04/16 at 12:25; Status DC Acetaminophen 650 mg 650 mg Q6H PRN PO TEMP > 100 Last administered on at 13:24; Start 12/23/15 at 02:45; Stop 12/30/15 at 15:04; Status DC Potassium Chloride 100 ml @ 50 mls/hr Q2H PRN IV For Potassium 2.8 - 3.2 mEq/L ; Start 12/23/15 at 08:30; Stop 01/09/16 at 11:14; Status DC Potassium Chloride (KCl 20 Meq Premix Inj) 100 ml @ 50 mls/hr Q2H PRN IV For Potassium 2.8 - 3.2 mEq/L; Start 12/23/15 at 08:30; Stop 01/09/16 at 11:14; Status DC Potassium Chloride 40 meq 40 meq UNSCH PRN PO/TUBE For Potassium 3.3 - 3.5 mEq/ L; Start 12/23/15 at 08:30; Stop 01/09/16 at 11:14; Status DC Potassium Chloride 100 ml @ 25 mls/hr UNSCH PRN IV For Potassium 3.3 - 3.5 mEq /L; Start 12/23/15 at 08:30; Stop 01/09/16 at 11:14; Status DC Potassium Chloride 100 ml @ 50 mls/hr Q2H PRN IV For Potassium 3.3 - 3.5 mEq/L ; Start 12/23/15 at 08:30; Stop 01/09/16 at 11:14; Status DC Magnesium Sulfate/ Sodium Chloride (Magnesium Sulfate Inj/NS Inj) 100 ml @ 50 mls/hr UNSCH PRN IV For Magnesium 0.9 - 1.1 mg/dL; Start 12/23/15 at 08:30; Stop 01/09/16 at 11:14; Status DC Magnesium Oxide 800 mg 800 mg UNSCH PRN PO For Magnesium 1.2 - 1.6 mg/dL; Start 12/23/15 at 08:30; Stop 01/09/16 at 11:14; Status DC Magnesium Sulfate/ Sodium Chloride (Magnesium Sulfate Inj/NS Inj) 100 ml @ 50 mls/hr UNSCH PRN IV For Magnesium 1.2 - 1.6 mg/dL; Start 12/23/15 at 08:30; Stop 01/09/16 at 11:14; Status DC Potassium Phosphate 2000 mg 2,000 mg Q4H PRN PO For Phosphorus < 2.5 mg/dL; Start 12/23/15 at 08:30; Stop 01/09/16 at 11:14; Status DC Sodium Phosphate/ Sodium Chloride (Sodium Phosphate Inj/NS 250 ml Inj) 250 ml @ 42 mls/hr UNSCH PRN IV For Phosphorus < 2.5 mg/dL; Start 12/23/15 at 08:30; Stop 01/09/16 at 11:14; Status DC Potassium Chloride (KCl 40 Meq/30 ml Liq) 40 meq UNSCH PRN PO/TUBE SEE LABEL COMMENTS; Start 12/23/15 at 08:30; Stop 01/09/16 at 11:14; Status DC Potassium Phosphate 2000 mg 2,000 mg UNSCH PRN PO/TUBE SEE LABEL COMMENTS; Start 12/23/15 at 08:30; Stop 01/09/16 at 11:14; Status DC Potassium Phosphate 30 mmol/ Sodium Chloride 260 ml @ 42 mls/hr UNSCH PRN IV SEE LABEL COMMENTS; Start 12/23/15 at 08:30; Stop 01/09/16 at 11:14; Status DC Sodium Chloride 1,000 ml @ 75 mls/hr [id number] IV ; Start 12/23/15 at 08:30; Stop 12/23/15 at 08:30; Status DC Piperacillin Sod/ Tazobactam Sod 50 ml @ 100 mls/hr Q6H IV Last administered on 12/30/15at 10:02; Start 12/23/15 at 10:00; Stop 12/30/15 at 14:50; Status DC Vancomycin HCl/ Sodium Chloride (Vancomycin Inj/ NS 250 ml Inj) 250 ml @ 250 mls/hr Q12H IV Last administered on 12/29/15at 09:01; Start 12/24/15 at 08:45; Stop 12/29/15 at 15:33; Status DC Warfarin Sodium (Coumadin) 4 mg DAILY@16 PO Last administered on 12/28/15at 16:00 ; Start 12/26/15 at 16:00; Stop 01/04/16 at 12:25; Status DC Levetriacetam (Keppra Liq) 500 mg Q12HR TUBE Last administered on 10/29/16t 09 :36; Start 12/27/15 at 21:00 Docusate Sodium (Colace Liq) 100 mg Q12HR TUBE Last administered on 01/15/16at 09:01; Start 12/27/15 at 21:00; Stop 04/16/16 at 08:50; Status DC Sennosides (Senna Liq) 8.8 mg DAILY TUBE Last administered on 01/15/16at 09:01 ; Start 12/27/15 at 17:00; Stop 01/15/16 at 20:37; Status DC Bisacodyl (Dulcolax Supp) 10 mg ONCE ONCE RECTAL ; Start 12/27/15 at 16:15; Stop 12/27/15 at 16:15; Status DC Albuterol/ Ipratropium (Duoneb Neb) 1 ampule Q4HR NEB PRN NEB RESPIRATORY DISTRESS Last administered on 12/29/15at 12:17; Start 12/27/15 at 22:00; Stop at 08:16; Status DC Bisacodyl (Dulcolax Supp) 10 mg ONCE ONCE RECTAL ; Start 12/28/15 at 12:00; Stop 12/28/15 at 12:01; Status DC Sodium Chloride (Sodium Chloride) 1 gm BID TUBE Last administered on 12/29/15at 09:02; Start 12/28/15 at 21:00; Stop 12/29/15 at 15:43; Status DC Lactulose (Lactulose Liq) 30 ml DAILY TUBE Last administered on 12/29/15at 09:02 ; Start 12/28/15 at 20:30; Stop 12/29/15 at 15:43; Status DC Levofloxacin (Levaquin) 750 mg DAILY@16 TUBE ; Start 12/29/15 at 16:00; Stop 05/05 at 16:00; Status DC Sodium Chloride (Sodium Chloride) 1 gm DAILY TUBE Last administered on at 07:29; Start 12/30/15 at 09:00; Stop 12/31/15 at 14:08; Status DC Water 200 ml 200 ml Q6HR G-TUBE Last administered on 12/31/15at 04:19; Start 06/05 at 14:45; Stop 12/31/15 at 07:31; Status DC Ceftriaxone Sodium/Sodium Chloride (Rocephin Inj/NS Inj) 100 ml @ 200 mls/hr Q12H IV Last administered on 01/03/16at 02:47; Start 12/30/15 at 15:00; Stop at 10:09; Status DC Acetaminophen (Tylenol 650 Mg/ 20 ml Liq) 650 mg Q6H PRN TUBE TEMP >100.4 Last administered on 10/25/16t 15:13; Start 12/30/15 at 15:15 Lactobacillus Acidophilus (Lactinex Pkt) 1 gm BID TUBE Last administered on at 09:00; Start 12/30/15 at 21:00; Stop 02/10/16 at 14:30; Status DC Enoxaparin Sodium (Lovenox Inj) 90 mg Q12H SQ Last administered on 01/01/16at 21 :57; Start 12/31/15 at 08:00; Stop 01/03/16 at 10:33; Status DC Water (Free Water) 100 ml Q12H G-TUBE ; Start 12/31/15 at 18:00; Stop 12/31/15 at 18:00; Status DC Acetaminophen/ Hydrocodone Bitart ([place] 5-325 Mg) 1 tab Q6H PRN PO PAIN Last administered on 05/26/16at 20:46; Start 12/31/15 at 15:00; Stop 11/13/16 at 21: 44; Status DC Fentanyl Citrate (Sublimaze Inj) 25 mcg Q1H PRN IV PUSH BREAKTHROUGH PAIN; Start 12/31/15 at 15:00; Stop 03/06/16 at 10:03; Status DC Water (Free Water) 200 ml Q8H G-TUBE Last administered on 01/01/16at 17:55; Start 12/31/15 at 18:00; Stop 01/02/16 at 09:56; Status DC Sodium Chloride (Sodium Chloride) 1 gm BID TUBE Last administered on 01/03/16at 07:39; Start 12/31/15 at 21:00; Stop 01/03/16 at 09:08; Status DC Miscellaneous Information Hold Anticoagulation after midni... ONCE ONCE OTHER ; Start 01/01/16 at 10:15; Stop 01/01/16 at 10:29; Status DC Sodium Chloride (NS 1000 ml Inj) 1,000 ml @ 50 mls/hr Q20H IV Last administered on 01/02/16at 12:26; Start 01/01/16 at 18:00; Stop 01/03/16 at 10:07 ; Status DC Midazolam HCl (Versed Inj) 5 mg STK-MED ONCE .ROUTE ; Start 01/02/16 at 12:47; Stop 01/02/16 at 12:48; Status DC Vecuronium [place] (Norcuron 10 Mg Inj) 10 mg STK-MED ONCE .ROUTE ; Start at 12:47; Stop 01/02/16 at 12:48; Status DC Fentanyl Citrate (Sublimaze Inj) 250 mcg ONCE ONCE IV PUSH Last administered on 01/02/16at 15:00; Start 01/02/16 at 15:00; Stop 01/02/16 at 15:01; Status DC Midazolam HCl (Versed Inj) 10 mg ONCE ONCE IV PUSH Last administered on at 15:00; Start 01/02/16 at 15:00; Stop 01/02/16 at 15:01; Status DC Rocuronium [place] (Zemuron Inj) 100 mg BOLUS ONCE IV Last administered on at 15:00; Start 01/02/16 at 15:00; Stop 01/02/16 at 15:01; Status DC Ketamine HCl (Ketalar Inj) 500 mg STK-MED ONCE .ROUTE ; Start 01/02/16 at 14:30 ; Stop 01/02/16 at 14:31; Status DC Propofol 230 mg 230 mg STK-MED ONCE IV ; Start 01/02/16 at 16:51; Stop 01/02/16 at 16:52; Status DC Sodium Chloride (NS 1000 ml Inj) 1,000 ml @ 0 mls/hr Q0M IV ; Start 01/03/16 at 10:15; Stop 01/17/16 at 17:30; Status DC Ranitidine HCl (Zantac Liq) 150 mg Q12HR PO Last administered on 01/17/16at 07: 39; Start 01/04/16 at 09:00; Stop 01/17/16 at 15:23; Status DC Enoxaparin Sodium 90 mg 90 mg Q12HR SQ Last administered on 01/11/16at 10:01; Start 01/04/16 at 09:00; Stop 01/11/16 at 12:35; Status DC Sodium Chloride (NS 500 ml Inj) 500 ml @ 0 mls/hr BOLUS ONCE IV Last administered on 01/03/16at 22:57; Start 01/03/16 at 23:00; Stop 01/03/16 at 23:01 ; Status DC Insulin Aspart (NovoLOG SUPPLEMENTAL SCALE) 1 Q6HR SQ Last administered on at 12:00; Start 01/04/16 at 12:00; Stop 03/24/16 at 13:58; Status DC Potassium Chloride (KCl 40 Meq/30 ml Liq) 40 meq Q4H NG Last administered on at 16:21; Start 01/04/16 at 13:00; Stop 01/04/16 at 17:01; Status DC Warfarin Sodium 5 mg 5 mg DAILY@1600 PO Last administered on 01/09/16at 17:21; Start 01/04/16 at 16:00; Stop 01/10/16 at 10:06; Status DC Pharmacy Profile Note (Coumadin Consult Pharmacy) 0 ml @ 0 mls/hr UNSCH XX ; Start 01/04/16 at 12:30; Stop 04/20/16 at 12:04; Status DC Insulin Detemir (Levemir Inj) 10 units Q12HR SQ Last administered on 01/05/16at 08:00; Start 01/04/16 at 21:00; Stop 01/05/16 at 08:42; Status DC Insulin Detemir (Levemir Inj) 5 units NOW ONCE SQ Last administered on at 13:28; Start 01/04/16 at 12:45; Stop 01/04/16 at 12:46; Status DC Albuterol/ Ipratropium (Duoneb Neb) 1 ampule Q4HR NEB PRN NEB dyspnea Last administered on 04/19/16at 02:24; Start 01/07/16 at 08:15; Stop 04/25/16 at 18:54 ; Status DC Warfarin Sodium (Coumadin) 7.5 mg ONCE ONCE PO Last administered on 01/07/16at 16:40; Start 01/07/16 at 16:00; Stop 01/07/16 at 16:01; Status DC Nystatin (Mycostatin Powder) 1 applic Q12HR TOPICAL Last administered on t 09:43; Start 01/08/16 at 21:00 Ipratropium [place] (Atrovent Neb) 0.5 mg TID NEB NEB Last administered on 02/20at 13:17; Start 01/08/16 at 20:00; Stop 02/21/16 at 17:52; Status DC Warfarin Sodium (Coumadin) 5 mg DAILY@1600 PO Last administered on 01/11/16at 14 :26; Start 01/11/16 at 16:00; Stop 01/12/16 at 09:45; Status DC Warfarin Sodium (Coumadin) 6 mg ONCE PO Last administered on 01/10/16at 17:10; Start 01/10/16 at 16:00; Stop 01/10/16 at 21:00; Status DC Metoprolol Tartrate (Lopressor) 50 mg Q12HR GT Last administered on 01/11/16at 10:02; Start 01/10/16 at 11:00; Stop 01/11/16 at 12:30; Status DC Metoprolol Tartrate (Lopressor) 50 mg TID GT Last administered on 01/14/16at 08: 24; Start 01/11/16 at 13:00; Stop 01/14/16 at 08:28; Status DC Insulin Detemir (Levemir Inj) 10 units HS SQ Last administered on 01/11/16at 22: 23; Start 01/11/16 at 21:00; Stop 01/12/16 at 11:47; Status DC Warfarin Sodium (Coumadin) 4 mg DAILY@16 PO ; Start 01/12/16 at 16:00; Stop at 16:00; Status DC Insulin Detemir (Levemir Inj) 20 units HS SQ Last administered on 01/13/16at 20: 26; Start 01/12/16 at 21:00; Stop 01/14/16 at 08:28; Status DC Warfarin Sodium (Coumadin) 2 mg DAILY@16 PO Last administered on 01/13/16at 17: 05; Start 01/12/16 at 16:00; Stop 01/14/16 at 11:23; Status DC Insulin Detemir (Levemir Inj) 22 units HS SQ Last administered on 01/14/16at 21: 37; Start 01/14/16 at 21:00; Stop 01/15/16 at 10:06; Status DC Metoprolol Tartrate (Lopressor) 75 mg TID GT Last administered on 03/10/16at 17: 43; Start 01/14/16 at 09:00; Stop 03/10/16 at 21:13; Status DC Miscellaneous (Pill Splitter) 1 ea UNSCH PRN OTHER SEE LABEL COMMENTS; Start at 08:30 Warfarin Sodium (Coumadin) 4 mg DAILY@1600 PO Last administered on 01/21/16at 16: 51; Start 01/14/16 at 16:00; Stop 01/23/16 at 09:29; Status DC Patient Medication Teaching (Coumadin Booklet) 1 ONCE ONCE XX ; Start 01/14/16 at 16:00; Stop 01/14/16 at 16:01; Status DC Insulin Detemir (Levemir Inj) 24 units HS SQ Last administered on 03/04/16at 21: 09; Start 01/15/16 at 21:00; Stop 03/05/16 at 11:17; Status DC Citalopram Hydrobromide (CeleXA) 20 mg DAILY PEG Last administered on at 08:01; Start 01/16/16 at 09:00; Stop 01/16/16 at 09:41; Status DC Sennosides (Senna Liq) 8.8 mg BID TUBE Last administered on 02/20/16at 08:32; Start 01/15/16 at 21:00; Stop 02/20/16 at 16:13; Status DC Gadodiamide 18 ml 18 ml STK-MED ONCE IV ; Start 01/16/16 at 20:40; Stop at 20:41; Status DC Sodium Chloride (NS 1000 ml Inj) 1,000 ml @ 125 mls/hr Q8H IV Last administered on 01/17/16at 15:11; Start 01/17/16 at 15:00; Stop 01/17/16 at 17:31 ; Status DC Ranitidine HCl 150 mg 150 mg Q24H PO Last administered on 07/28/16t 08:54; Start 01/18/16 at 09:00; Stop 07/30/16 at 10:05; Status DC Sodium Chloride 1,000 ml @ 75 mls/hr [id number] IV Last administered on at 05:22; Start 01/17/16 at 18:00; Stop 01/18/16 at 09:28; Status DC Sodium Chloride/ Sterile Water (Sodium Chloride 23.4% Inj/Sterile Water For Inj ) 1,009.625 ml @ 60 mls/hr [id number] IV Last administered on 01/21/16at 22:46; Start 01/18/16 at 11:00; Stop 01/22/16 at 10:09; Status DC Potassium Chloride (KCl) 40 meq ONCE ONCE PO ; Start 01/18/16 at 09:30; Stop at 09:31; Status DC Potassium Chloride (KCl 40 Meq/30 ml Liq) 40 meq ONCE ONCE TUBE Last administered on 01/18/16at 11:08; Start 01/18/16 at 11:00; Stop 01/18/16 at 11:01 ; Status DC Water (Free Water) 300 ml Q4HR TUBE Last administered on 01/19/16at 08:00; Start 01/18/16 at 12:00; Stop 01/19/16 at 10:43; Status DC Water (Free Water) 400 ml Q4HR TUBE Last administered on 04/16/16at 04:00; Start 01/19/16 at 12:00; Stop 04/16/16 at 09:09; Status DC Potassium Chloride (KCl 40 Meq/30 ml Liq) 40 meq ONCE ONCE NG Last administered on 01/19/16at 11:41; Start 01/19/16 at 11:00; Stop 01/19/16 at 11:01; Status DC Potassium Chloride 60 meq 60 meq ONCE ONCE PO/TUBE Last administered on at 13:30; Start 01/21/16 at 11:15; Stop 01/21/16 at 11:27; Status DC Sodium Chloride (1/2 NS 1000 ml Inj) 1,000 ml @ 30 mls/hr Q24H IV Last administered on 02/06/16at 11:26; Start 01/22/16 at 11:00; Stop 02/07/16 at 14:49 ; Status DC Warfarin Sodium (Coumadin) 3 mg DAILY@16 PO Last administered on 01/23/16at 17:19 ; Start 01/23/16 at 16:00; Stop 01/24/16 at 14:05; Status DC Warfarin Sodium (Coumadin) 3 mg DAILY@16 PO Last administered on 01/25/16at 15:59 ; Start 01/25/16 at 16:00; Stop 01/26/16 at 15:04; Status DC Warfarin Sodium (Coumadin) 4 mg ONCE@1600 ONCE PO Last administered on at 16:55; Start 01/24/16 at 16:00; Stop 01/24/16 at 16:01; Status DC Warfarin Sodium (Coumadin) 3 mg DAILY@16 PO ; Start 01/27/16 at 16:00; Stop at 16:00; Status DC Warfarin Sodium (Coumadin) 4 mg ONCE@1600 ONCE PO Last administered on at 16:52; Start 01/26/16 at 16:00; Stop 01/26/16 at 16:01; Status DC Potassium Chloride (KCl 40 Meq/30 ml Liq) 80 meq ONCE ONCE PO Last administered on 01/27/16at 07:45; Start 01/27/16 at 07:45; Stop 01/27/16 at 08:10; Status DC Warfarin Sodium (Coumadin) 4 mg DAILY@16 PO Last administered on 02/02/16at 17: 22; Start 01/27/16 at 16:00; Stop 02/03/16 at 11:37; Status DC Acetic Acid (Acetic Acid 0.25% Irr Btl) 10 ml Q8HR IRRIGATION Last administered on 02/05/16at 06:00; Start 01/28/16 at 22:00; Stop 02/05/16 at 15:51 ; Status DC Warfarin Sodium 3 mg 3 mg DAILY@1600 PO Last administered on 02/11/16at 17:34; Start 02/03/16 at 16:00; Stop 02/12/16 at 12:45; Status DC Ceftriaxone Sodium/Sodium Chloride (Rocephin Inj/NS Inj) 100 ml @ 200 mls/hr Q24H IV Last administered on 02/10/16at 05:23; Start 02/05/16 at 06:30; Stop at 14:32; Status DC Acetic Acid (Acetic Acid 0.25% Irr Btl) 10 ml Q8HR IRRIGATION ; Start 02/05/16 at 16:00; Status Cancel Acetic Acid (Acetic Acid 0.25% Irr Btl) 10 ml Q8HR IRRIGATION Last administered on 10/29/16t 05:48; Start 02/05/16 at 16:00 Lactobacillus Acidophilus (Lactinex) 1 tab Q12HR PO Last administered on at 08:25; Start 02/10/16 at 21:00; Stop 02/12/16 at 16:05; Status DC Warfarin Sodium (Coumadin) 4 mg DAILY@1600 PO Last administered on 02/14/16at 15 :56; Start 02/12/16 at 16:00; Stop 02/15/16 at 10:17; Status DC Paroxetine HCl (Paxil Liq) 20 mg DAILY PEG Last administered on 02/25/16at 07:33 ; Start 02/16/16 at 09:00; Stop 02/25/16 at 10:36; Status DC Warfarin Sodium (Coumadin) 3 mg DAILY@1600 PO Last administered on 02/19/16at 16: 42; Start 02/15/16 at 16:00; Stop 02/20/16 at 08:50; Status DC Warfarin Sodium (Coumadin) 4 mg DAILY@16 PO Last administered on 02/21/16at 15:54 ; Start 02/20/16 at 16:00; Stop 02/22/16 at 08:46; Status DC Sennosides (Senna Liq) 8.8 mg DAILY TUBE Last administered on 05/26/16at 08:14 ; Start 02/21/16 at 09:00; Stop 05/27/16 at 11:51; Status DC Albuterol Sulfate (Albuterol Neb) 2.5 mg QID NEB INH Last administered on at 19:51; Start 02/21/16 at 20:00; Stop 02/25/16 at 20:00; Status DC Acetylcysteine (Mucomyst 10% Neb) 1 ml QID NEB NEB Last administered on at 16:32; Start 02/21/16 at 20:00; Stop 02/23/16 at 16:01; Status DC Warfarin Sodium (Coumadin) 3 mg DAILY@16 PO Last administered on 02/22/16at 15:59 ; Start 02/22/16 at 16:00; Stop 02/23/16 at 08:56; Status DC Warfarin Sodium (Coumadin) 3 mg DAILY@16 PO Last administered on 02/28/16at 16: 17; Start 02/24/16 at 16:00; Stop 02/29/16 at 10:04; Status DC Warfarin Sodium (Coumadin) 2 mg ONCE PO Last administered on 02/23/16at 16:22; Start 02/23/16 at 16:00; Stop 02/23/16 at 21:00; Status DC Paroxetine HCl (Paxil Liq) 20 mg DAILY@1900 PEG Last administered on 03/08/16at 18:11; Start 02/26/16 at 19:00; Stop 03/09/16 at 11:31; Status DC Warfarin Sodium (Coumadin) 3 mg DAILY@16 PO Last administered on 03/06/16at 16: 22; Start 03/01/16 at 16:00; Stop 03/09/16 at 10:30; Status DC Warfarin Sodium (Coumadin) 1 mg ONCE PO Last administered on 02/29/16at 17:28; Start 02/29/16 at 16:00; Stop 02/29/16 at 21:00; Status DC Insulin Detemir (Levemir Inj) 27 units HS SQ Last administered on 03/05/16at 20: 25; Start 03/05/16 at 21:00; Stop 03/06/16 at 10:03; Status DC Patient Medication Teaching (Coumadin Booklet) 1 ONCE ONCE XX Last administered on 03/05/16at 16:00; Start 03/05/16 at 16:00; Stop 03/05/16 at 16:01 ; Status DC Insulin Detemir (Levemir Inj) 30 units HS SQ Last administered on 03/21/16at 22: 32; Start 03/06/16 at 21:00; Stop 03/22/16 at 14:48; Status DC Trimethoprim/ Sulfamethoxazole (Bactrim 800-160 Mg/20 ml Liq) 20 ml Q12HR PO Last administered on 03/14/16at 08:01; Start 03/07/16 at 11:15; Stop 03/14/16 at 11:14; Status DC Lorazepam (Ativan Inj) 0.5 mg Q4H PRN IV PUSH seizures or agitation; Start at 23:00 Metronidazole (Flagyl) 500 mg Q8H PO Last administered on 03/14/16at 15:51; Start 03/08/16 at 17:00; Stop 03/14/16 at 23:00; Status DC Warfarin Sodium (Coumadin) 2 mg DAILY@16 PO Last administered on 03/09/16at 17: 20; Start 03/09/16 at 16:00; Stop 03/10/16 at 10:33; Status DC Paroxetine HCl (Paxil) 20 mg DAILY@1900 PEG Last administered on 03/11/16at 17: 55; Start 03/09/16 at 19:00; Stop 03/12/16 at 08:31; Status DC Warfarin Sodium 3 mg 3 mg DAILY@16 PO Last administered on 04/12/16at 15:28; Start 03/10/16 at 16:00; Stop 04/12/16 at 16:39; Status DC Pharmacy Profile Note 0 ml @ 0 mls/hr UNSCH OTHER ; Start 03/10/16 at 14:15; Stop 03/18/16 at 11:33; Status DC Vancomycin HCl/ Sodium Chloride (Vancomycin Inj/ NS 500 ml Inj) 530 ml @ 265 mls/hr Q12H IV Last administered on 03/17/16at 16:26; Start 03/10/16 at 16:00; Stop 03/17/16 at 23:00; Status DC Miscellaneous Information SPECIFIC LAB TO BE ... ONCE ONCE XX Last administered on 03/12/16at 04:45; Start 03/12/16 at 03:45; Stop 03/12/16 at 03:46 ; Status DC Metoprolol Tartrate (Lopressor) 75 mg Q8HR PO Last administered on 04/02/16at 13 :13; Start 03/10/16 at 22:00; Stop 04/02/16 at 17:31; Status DC Paroxetine HCl (Paxil Liq) 20 mg DAILY@1900 PEG Last administered on 10/28/16t 18:35; Start 03/12/16 at 19:00 Warfarin Sodium (Coumadin) 1 mg ONCE PO Last administered on 03/21/16at 16:24; Start 03/21/16 at 16:00; Stop 03/21/16 at 21:00; Status DC Warfarin Sodium (Coumadin) 1 mg ONCE PO Last administered on 03/22/16at 17:46; Start 03/22/16 at 16:00; Stop 03/22/16 at 21:00; Status DC Insulin Detemir (Levemir Inj) 32 units HS SQ Last administered on 03/22/16at 20: 18; Start 03/22/16 at 21:00; Stop 03/23/16 at 13:35; Status DC Diltiazem HCl (Cardizem Cd) 120 mg DAILY PO Last administered on 04/14/16at 07: 43; Start 03/22/16 at 16:00; Stop 04/14/16 at 14:39; Status DC Hyoscyamine Sulfate (Levsin Liq) 0.125 mg Q4H PRN PEG INCREASED SECRETIONS Last administered on 04/10/16at 08:05; Start 03/22/16 at 15:15; Stop 04/11/16 at 10:24; Status DC Warfarin Sodium (Coumadin) 2 mg ONCE ONCE PO Last administered on 03/23/16at 17: 26; Start 03/23/16 at 16:00; Stop 03/23/16 at 16:01; Status DC Insulin Detemir (Levemir Inj) 34 units HS SQ Last administered on 03/23/16at 20: 01; Start 03/23/16 at 21:00; Stop 03/24/16 at 13:53; Status DC Insulin Detemir (Levemir Inj) 35 units HS SQ Last administered on 10/28/16 20: 50; Start 03/24/16 at 21:00 Insulin Aspart (NovoLOG SUPPLEMENTAL SCALE) 1 ACHS SLIDING SCALE SQ Last administered on 04/16/16at 22:27; Start 03/24/16 at 16:00; Stop 04/19/16 at 17:19 ; Status DC Warfarin Sodium (Coumadin) 1 mg ONCE ONCE PO Last administered on 03/30/16at 16 :59; Start 03/30/16 at 16:00; Stop 03/30/16 at 16:01; Status DC Potassium Chloride (KCl 40 Meq/30 ml Liq) 40 meq ONCE ONCE NG Last administered on 03/31/16at 21:28; Start 03/31/16 at 18:30; Stop 03/31/16 at 18:31 ; Status DC Potassium Bicarb/ Potassium Chloride (K-Lyte Cl Eff) 25 meq ONCE ONCE PEG Last administered on 04/02/16at 12:01; Start 04/02/16 at 13:00; Stop 04/02/16 at 13:01; Status DC Metoprolol Tartrate (Lopressor) 75 mg BID PO Last administered on 05/28/16at 21: 03; Start 04/02/16 at 21:00; Stop 05/29/16 at 11:21; Status DC Potassium Bicarb/ Potassium Chloride (K-Lyte Cl Eff) 25 meq ONCE ONCE PEG Last administered on 04/04/16at 14:40; Start 04/04/16 at 12:30; Stop 04/04/16 at 12:31; Status DC Linezolid (Zyvox) 600 mg Q12HR PO Last administered on 04/16/16at 09:11; Start 04/05/16 at 15:00; Stop 04/16/16 at 12:00; Status DC Artificial Tears (Lacrilube Opht Oint) 1 applic Q12HR EACH EYE Last administered on 09/04/16 21:00; Start 04/10/16 at 11:00; Stop 09/05/16 at 14:38 ; Status DC Hyoscyamine Sulfate (Levsin) 0.25 mg Q4H PRN G-TUBE INCREASED SECRETIONS Last administered on 08/31/16 05:02; Start 04/11/16 at 10:30 Diatrizoate Meglum/ Diatrizoate Sod (Md [place] Liq) 18 ml ONCE ONCE PO Last administered on 04/12/16at 16:45; Start 04/12/16 at 16:15; Stop 04/12/16 at 16:16; Status DC Warfarin Sodium (Coumadin) 3 mg DAILY@16 PO ; Start 04/13/16 at 16:00; Stop 05/27/16 at 11:51; Status DC Iohexol (Omnipaque 350 Inj) 98 ml STK-MED ONCE IV Last administered on at 21:01; Start 04/12/16 at 21:01; Stop 04/12/16 at 21:02; Status DC Diltiazem HCl (Cardizem Cd) 180 mg DAILY PO ; Start 04/15/16 at 09:00; Stop at 08:50; Status DC Ondansetron HCl (Zofran Inj) 4 mg Q6HR PRN IV PUSH nausea/vomiting Last administered on 08/10/16t 10:16; Start 04/14/16 at 19:45 Diltiazem HCl 60 mg 60 mg QID PO Last administered on 04/25/16at 17:26; Start at 13:00; Stop 04/25/16 at 19:06; Status DC Sodium Chloride 500 ml @ 500 mls/hr BOLUS ONCE IV Last administered on at 09:15; Start 04/15/16 at 09:15; Stop 04/15/16 at 10:14; Status DC Potassium Chloride/Dextrose/ Sodium Chloride (KCl Inj/D5W-NS 1000 ml Inj) 1,005 ml @ 100 mls/hr Q10H3M IV Last administered on 04/15/16at 21:03; Start at 11:00; Stop 04/16/16 at 09:09; Status DC Enoxaparin Sodium (Lovenox Inj) 90 mg Q12H SQ Last administered on 04/16/16at 21 :12; Start 04/16/16 at 09:00; Stop 04/17/16 at 10:37; Status DC Water 200 ml 200 ml Q4HR TUBE Last administered on 10/29/16 08:00; Start 04/16 at 12:00 Sodium Chloride 1,000 ml @ 84 mls/hr [id number] IV Last administered on at 08:38; Start 04/16/16 at 10:00; Stop 04/20/16 at 12:04; Status DC Ceftriaxone Sodium/Sodium Chloride (Rocephin Inj/NS Inj) 100 ml @ 200 mls/hr Q24H IV Last administered on 05/02/16at 13:19; Start 04/16/16 at 12:00; Stop 05/03/16 at 12:06; Status DC Acetaminophen/ Hydrocodone Bitart ([place] 5-325 Mg) 1 tab Q6HR PEG Last administered on 09/17/16t 06:42; Start 04/18/16 at 18:00; Stop 09/17/16 at 09:17 ; Status DC Lactulose (Lactulose Liq) 30 ml NOW ONCE PEG Last administered on 04/19/16at 17 :21; Start 04/19/16 at 17:30; Stop 04/19/16 at 17:31; Status DC Lactulose (Lactulose Liq) 30 ml DAILY PEG Last administered on 05/26/16at 08:14 ; Start 04/20/16 at 09:00; Stop 05/27/16 at 11:39; Status DC Potassium Bicarb/ Potassium Chloride (K-Lyte Cl Eff) 50 meq ONCE ONCE PO Last administered on 04/20/16at 05:52; Start 04/20/16 at 05:45; Stop 04/20/16 at 05:46; Status DC Furosemide (Lasix Inj) 20 mg ONCE ONCE IV PUSH Last administered on 04/20/16at 17:35; Start 04/20/16 at 12:00; Stop 04/20/16 at 12:06; Status DC Insulin Aspart (NovoLOG SUPPLEMENTAL SCALE) 1 ACHS SLIDING SCALE SQ Last administered on 06/02/16at 12:10; Start 04/20/16 at 16:00; Stop 06/02/16 at 21: 44; Status DC Dextrose (D50w (Vial) Inj) 25 ml UNSCH PRN IV HYPOGLYCEMIA-SEE COMMENTS; Start 04/20/16 at 12:00 Glucagon (Glucagon Inj) 1 mg UNSCH PRN IM/SQ HYPOGLYCEMIA-SEE COMMENTS; Start 04/20/16 at 12:00 Lactobacillus Acidophilus (Lactinex) 1 tab Q12HR PEG Last administered on 06/06at 21:34; Start 04/22/16 at 09:00; Stop 06/07/16 at 09:32; Status DC Furosemide (Lasix Inj) 20 mg Q12H IV PUSH Last administered on 04/24/16at 08:52 ; Start 04/22/16 at 09:00; Stop 04/24/16 at 09:25; Status DC Potassium Bicarb/ Potassium Chloride (K-Lyte Cl Eff) 25 meq Q12HR TUBE Last administered on 05/27/16at 08:17; Start 04/22/16 at 09:00; Stop 05/27/16 at 11:51 ; Status DC Albumin Human (Albumin 25% Inj) 12.5 gm Q12H IV Last administered on 04/24/16at 08:46; Start 04/22/16 at 09:00; Stop 04/24/16 at 09:25; Status DC Furosemide (Lasix Inj) 20 mg DAILY IV PUSH Last administered on 05/08/16at 09: 01; Start 04/25/16 at 09:00; Stop 05/08/16 at 11:06; Status DC Albumin Human (Albumin 25% Inj) 12.5 gm DAILY IV Last administered on at 09:02; Start 04/25/16 at 10:00; Stop 05/08/16 at 11:06; Status DC Furosemide (Lasix Inj) 40 mg ONCE ONCE IV PUSH Last administered on 04/25/16at 18:15; Start 04/25/16 at 18:15; Stop 04/25/16 at 18:16; Status DC Albuterol/ Ipratropium (Duoneb Neb) 1 ampule Q6HR NEB NEB Last administered on 04/27/16at 15:52; Start 04/25/16 at 18:30; Stop 04/27/16 at 19:45; Status DC Ipratropium [place] (Atrovent Neb) 0.5 mg Q6HR NEB NEB Last administered on at 16:51; Start 04/25/16 at 22:00; Stop 04/27/16 at 16:44; Status DC Levalbuterol HCl (Xopenex Neb) 0.31 mg Q4HR NEB NEB Last administered on at 23:48; Start 04/25/16 at 20:00; Stop 04/27/16 at 16:43; Status DC Levalbuterol HCl (Xopenex Neb) 0.31 mg Q2HR NEB PRN NEB SHORTNESS OF BREATH; Start 04/25/16 at 18:45; Stop 04/28/16 at 10:50; Status DC Diltiazem HCl (Cardizem) 90 mg QID PEG Last administered on 07/17/16at 09:27; Start 04/25/16 at 21:00; Stop 07/17/16 at 17:52; Status DC Diltiazem HCl (Cardizem) 30 mg NOW ONCE PEG Last administered on 04/25/16at 21: 36; Start 04/25/16 at 19:15; Stop 04/25/16 at 19:16; Status DC Levalbuterol HCl (Xopenex Neb) 0.31 mg Q8HR NEB NEB ; Start 04/28/16 at 00:00; Stop 04/28/16 at 10:50; Status DC Levalbuterol HCl (Xopenex Neb) 0.63 mg Q4HR NEB PRN NEB SHORTNESS OF BREATH Last administered on 05/04/16at 15:26; Start 04/28/16 at 11:00; Stop 05/04/16 at 00:51; Status DC Levalbuterol HCl (Xopenex Neb) 0.63 mg Q8HR NEB NEB Last administered on 05/04at 00:07; Start 04/28/16 at 16:00; Stop 05/04/16 at 00:50; Status DC Polyethylene Glycol/ Electrolytes 4000 ml 4,000 ml ONCE ONCE PO Last administered on 05/05/16at 08:10; Start 05/05/16 at 08:45; Stop 05/05/16 at 08 :46; Status DC Cefazolin Sodium/ Dextrose 50 ml @ 100 mls/hr ONCE ONCE IV ; Start 05/06/16 at 14:00; Stop 05/06/16 at 14:29; Status DC Metronidazole 100 ml @ 100 mls/hr ONCE ONCE IV Last administered on at 14:00; Start 05/06/16 at 14:00; Stop 05/06/16 at 14:59; Status DC Ceftriaxone Sodium/Sodium Chloride (Rocephin Inj/NS Inj) 100 ml @ 200 mls/hr Q24H IV Last administered on 06/09/16at 12:36; Start 05/03/16 at 12:00; Stop 06/10/16 at 12:48; Status DC Levalbuterol HCl (Xopenex Neb) 0.63 mg Q8HR NEB NEB Last administered on 05/05at 08:00; Start 05/04/16 at 00:49; Stop 05/05/16 at 08:07; Status DC Levalbuterol HCl (Xopenex Neb) 0.63 mg Q4HR NEB PRN NEB SHORTNESS OF BREATH Last administered on 10/18/16 15:44; Start 05/05/16 at 12:00 Levalbuterol HCl (Xopenex Neb) 0.63 mg Q8HR NEB NEB Last administered on 05/08at 23:56; Start 05/05/16 at 08:15; Stop 05/09/16 at 08:15; Status DC Potassium Bicarb/ Potassium Chloride (K-Lyte Cl Eff) 25 meq DAILY TUBE Last administered on 10/29/16 09:36; Start 05/28/16 at 09:00 Aspirin (Aspirin) 325 mg DAILY TUBE Last administered on 10/29/16 09:37; Start 05/27/16 at 11:40 Docusate Sodium (Colace Liq) 100 mg DAILY PRN PO constipation Last administered on 08/16/16 21:09; Start 05/27/16 at 11:45; Stop 08/31/16 at 09:00 ; Status DC Metoprolol Tartrate (Lopressor) 50 mg BID PO Last administered on 08/23/16 09: 03; Start 05/29/16 at 21:00; Stop 08/23/16 at 15:33; Status DC Acetaminophen/ Hydrocodone Bitart ([place] 5-325 Mg) 1 tab Q6H PRN TUBE BREAKTHROUGH PAIN Last administered on 08/02/16 15:11; Start 06/03/16 at 03:00 ; Stop 09/17/16 at 14:33; Status DC Insulin Aspart (NovoLOG SUPPLEMENTAL SCALE) 1 ACHS SLIDING SCALE SQ Last administered on 06/06/16at 21:35; Start 06/03/16 at 07:00; Stop 06/07/16 at 12 :24; Status DC Lactobacillus Acidophilus (Lactinex) 1 tab TID PEG Last administered on 09:13; Start 06/07/16 at 13:00; Stop 10/13/16 at 12:08; Status DC Insulin Aspart 1 1 AC BREAKFAST SQ Last administered on 10/28/16 06:13; Start 06/08/16 at 07:00 Ceftriaxone Sodium/Sodium Chloride (Rocephin Inj/NS Inj) 100 ml @ 200 mls/hr Q24H IV Last administered on 07/28/16 12:19; Start 06/10/16 at 12:00; Stop 07/29/16 at 13:30; Status DC Heparin Sodium (Porcine) (Heparin Inj) 5,000 units Q12HR SQ Last administered on 06/11/16at 00:58; Start 06/10/16 at 14:15; Stop 06/11/16 at 06:21; Status DC Heparin Sodium (Porcine) (Heparin Inj) 5,000 units Q8HR SQ Last administered on 10/29/16 05:47; Start 06/11/16 at 14:00 Diltiazem HCl (Cardizem) 30 mg QID PEG Last administered on 08/16/16 08:31; Start 07/17/16 at 18:00; Stop 08/16/16 at 12:06; Status DC Bacitracin 1 applic 1 applic BID TOP Last administered on 10/29/16 09:43; Start 07/20/16 at 10:00 Lactated Ringer's 1,000 ml @ 30 mls/hr Q24H IV ; Start 07/21/16 at 17:45; Stop 08/14/16 at 12:08; Status DC Sodium Chloride (NS 500 ml Inj) 500 ml @ 30 mls/hr [id number] IV ; Start 07/21/16 at 17:45; Stop 07/22/16 at 17:44; Status DC Insulin Human Regular (NovoLIN R INJ) See Protocol Table ... UNSCH X1 PRN SQ SEE PROTOCOL; Start 07/21/16 at 17:45; Stop 07/22/16 at 17:44; Status DC Metoprolol Tartrate (Lopressor) 25 mg UNSCH X1 PRN PO SEE LABEL COMMENTS; Start 07/21/16 at 17:45; Stop 07/22/16 at 17:44; Status DC Lidocaine/ Epinephrine (Xylocaine-Epi 1%-1:100,000 Inj) 40 ml STK-MED ONCE .ROUTE Last administered on 07/22/16 10:56; Start 07/22/16 at 10:04; Stop at 10:05; Status DC Ketamine HCl (Ketalar Inj) 500 mg STK-MED ONCE .ROUTE ; Start 07/22/16 at 10:50; Stop 07/22/16 at 10:51; Status DC Propofol 600 mg 600 mg STK-MED ONCE IV ; Start 07/22/16 at 12:00; Stop 07/23/16 at 14:36; Status DC Dextrose 1,000 ml @ 40 mls/hr Q24H ONCE IV Last administered on 07/28/16 14:33 ; Start 07/28/16 at 14:00; Stop 07/29/16 at 13:59; Status DC Ampicillin Sodium/ Sulbactam Sodium/ Sodium Chloride (Unasyn Inj/NS Inj) 100 ml @ 200 mls/hr Q6H IV Last administered on 08/01/16 12:30; Start 07/29/16 at 14: 00; Stop 08/01/16 at 14:13; Status DC Ondansetron HCl 4 mg 4 mg ONCE ONCE IV PUSH Last administered on 07/30/16 02: 46; Start 07/30/16 at 00:30; Stop 07/30/16 at 00:33; Status DC Lactated Ringer's 1,000 ml @ 30 mls/hr Q24H IV ; Start 07/30/16 at 06:00; Stop 08/14/16 at 12:09; Status DC Sodium Chloride (NS 500 ml Inj) 500 ml @ 30 mls/hr [id number] IV ; Start 07/30/16 at 06:00; Stop 07/31/16 at 05:59; Status DC Pantoprazole Sodium (Protonix Inj) 40 mg Q12H IV PUSH Last administered on 10/29 10:05; Start 07/30/16 at 10:15 Propofol 200 mg 200 mg STK-MED ONCE IV ; Start 07/30/16 at 09:41; Stop 07/30/16 at 10:19; Status DC Piperacillin Sod/ Tazobactam Sod (Zosyn 4.5 Gm Premix) 100 ml @ 200 mls/hr Q6H IV Last administered on 08/07/16 09:37; Start 08/01/16 at 16:00; Stop at 16:10; Status DC Linezolid (Zyvox) 600 mg Q12HR PO Last administered on 08/22/16 09:10; Start at 21:00; Stop 08/22/16 at 15:55; Status DC Sodium Chloride ([facility] [place]) 1 spray BID NASAL Last administered on 09:00; Start 08/01/16 at 21:00 Metronidazole 500 mg 500 mg Q8H PO Last administered on 08/08/16 08:28; Start 08/07/16 at 16:00; Stop 08/08/16 at 16:10; Status DC Sodium Chloride (NS 1000 ml Inj) 1,000 ml @ 42 mls/hr [id number] IV Last administered on 08/14/16 12:44; Start 08/14/16 at 12:00; Stop 08/15/16 at 10:56 ; Status DC Fentanyl Citrate (fentaNYL INJ) 250 mcg STK-MED ONCE .ROUTE Last administered on 08/14/16 15:36; Start 08/14/16 at 15:36; Stop 08/14/16 at 15:37; Status DC Iohexol (Omnipaque 350 Inj) 30 ml STK-MED ONCE G-TUBE Last administered on 08/14 15:45; Start 08/14/16 at 15:52; Stop 08/14/16 at 15:53; Status DC Diltiazem HCl (Cardizem) 30 mg QID PEG Last administered on 10/29/16 09:37; Start 08/16/16 at 13:00 Polyethylene Glycol (Miralax) 17 gm ONCE ONCE PEG Last administered on 11:32; Start 08/17/16 at 12:00; Stop 08/17/16 at 12:01; Status DC Amoxicillin 500 mg 500 mg Q8HR PO Last administered on 10/29/16 05:48; Start 08/22/16 at 22:00 Cefepime HCl/ Sodium Chloride (Maxipime Inj/NS Inj) 100 ml @ 200 mls/hr Q8H IV Last administered on 09/03/16 10:46; Start 08/23/16 at 16:00; Stop 09/03/16 at 15:02; Status DC Metoprolol Tartrate (Lopressor) 75 mg BID PO Last administered on 09/13/16 08: 42; Start 08/23/16 at 21:00; Stop 09/13/16 at 13:09; Status DC Docusate Sodium (Colace Liq) 100 mg BID PO Last administered on 10/29/16 09:36 ; Start 08/30/16 at 21:00 Sennosides (Senokot) 17.2 mg DAILY PO Last administered on 09/25/16 08:36; Start 08/30/16 at 14:00; Stop 09/25/16 at 16:09; Status DC Lactulose (Lactulose Liq) 30 ml DAILY PO Last administered on 10/29/16 09:36; Start 09/02/16 at 15:30 Artificial Tears (Tears Naturale Opth Soln) 1 drop BID EACH EYE Last administered on 10/29/16 09:00; Start 09/05/16 at 21:00 Midazolam HCl (Versed Inj) 2 mg STK-MED ONCE .ROUTE Last administered on 11:37; Start 09/09/16 at 11:37; Stop 09/09/16 at 11:38; Status DC Fentanyl Citrate (fentaNYL INJ) 100 mcg STK-MED ONCE .ROUTE Last administered on 09/09/16 11:38; Start 09/09/16 at 11:38; Stop 09/09/16 at 11:39; Status DC Iohexol (Omnipaque 350 Inj) 20 ml STK-MED ONCE G-TUBE Last administered on 09/09 11:50; Start 09/09/16 at 11:50; Stop 09/09/16 at 12:15; Status DC Metoprolol Tartrate (Lopressor) 50 mg BID PO Last administered on 10/29/16 09: 36; Start 09/13/16 at 21:00 Acetaminophen/ Hydrocodone Bitart ([place] 5-325 Mg) 1 tab Q6H PEG ; Start at 11:00; Stop 09/17/16 at 14:25; Status DC Acetaminophen/ Hydrocodone Bitart ([place] 5-325 Mg) 1 tab DAILY@1600 PO ; Start 09/17/16 at 16:00; Stop 09/17/16 at 16:00; Status DC Morphine Sulfate (Morphine Inj) 1 mg Q24H PRN IV PUSH dressing change 30 min before Last administered on 10/22/16 02:00; Start 09/17/16 at 14:30 Acetaminophen/ Hydrocodone Bitart ([place] 5-325 Mg) 1 tab DAILY@0000 PO Last administered on 09/17/16 23:43; Start 09/18/16 at 00:00; Stop 09/20/16 at 12:46; Status DC Acetaminophen/ Hydrocodone Bitart ([place] 5-325 Mg) 1 tab Q8H PO Last administered on 10/13/16 13:38; Start 09/20/16 at 13:00; Stop 10/13/16 at 18:29 ; Status DC Ketoconazole (Nizoral 2% Cream) 1 applic Q12HR TOPICAL Last administered on 20:52; Start 09/24/16 at 21:00 Sennosides (Senna Liq) 8.8 mg DAILY@1600 PO Last administered on 10/28/16 16: 54; Start 09/25/16 at 17:00 Sodium Biphosphate/ Sodium Phosphate (Fleets Enema (Adult)) 133 ml UNSCH PRN [place] CONSTIPATION; Start 09/25/16 at 16:00 Bisacodyl (Dulcolax Supp) 10 mg DAILY PRN RECTAL CONSTIPATION Last administered on 10/20/16 12:53; Start 09/26/16 at 15:30 Bisacodyl (Dulcolax Supp) 10 mg ONCE ONCE RECTAL Last administered on 16:10; Start 09/26/16 at 15:30; Stop 09/26/16 at 15:31; Status DC Cyclobenzaprine HCl (Flexeril) 5 mg Q8H PO Last administered on 10/13/16 13:37 ; Start 10/13/16 at 12:15; Stop 10/13/16 at 18:27; Status DC Magnesium Hydroxide (Milk Of Magnesia Liq) 30 ml DAILY PRN PO constipation Last administered on 10/20/16 12:54; Start 10/13/16 at 14:30 Acetaminophen/ Hydrocodone Bitart ([place] 5-325 Mg) 1 tab Q6H PRN PO PAIN SCALE 1 TO 10; Start 10/13/16 at 18:30; Stop 10/13/16 at 18:30; Status DC Acetaminophen/ Hydrocodone Bitart ([place] 5-325 Mg) 1 tab Q6H PRN PO PAIN SCALE 1 TO 10 Last administered on 10/28/16 20:53; Start 10/13/16 at 18:45 Cyclobenzaprine HCl (Flexeril) 5 mg HS PRN PO muscle relaxant Last administered on 10/22/16 21:17; Start 10/14/16 at 14:15 Fentanyl Citrate (fentaNYL INJ) 100 mcg STK-MED ONCE .ROUTE ; Start 10/23/16 at 16:51; Stop 10/23/16 at 16:52; Status DC Glycerin (Glycerin Adult Supp) 2 gm ONCE ONCE RECTAL Last administered on 15:29; Start 10/26/16 at 15:00; Stop 10/26/16 at 15:01; Status DC Nitrofurantoin Macrocrystals (Macrobid) 100 mg BIDPC PO Last administered on 09:36; Start 10/26/16 at 15:00; Stop 10/29/16 at 14:59 Date of Insertion: Oct 12, 2016 A/P Assessment and Plan A/P 60-year-old male with: CVA Paraplegia 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 Keppra continued (for seizures) Supportive Care [facility] care needed for chronic and profound neurologic deficits. Recovery is not expected to occur. Medicaid with SSI pending. Recent Fever- now has resolved Could be from UTI or Decubitus ulcer Continue Nitrofurantoin till the end of the course of treatment. Constipation Resolved Follow for recurrence Clogged PEG tube Has occured on 10/14 and 10/23 Follow for recurrence Continue Flushes GI if replacement needed Chronic respiratory failure Related to CVA Continue trach management PRN Levsin pulmonary following. Atrial fibrillation Cardizem Metoprolol Follow heart rate History of non-Hodgkin's lymphoma Follow clinically Diabetes mellitus Follow blood sugars Decubitus ulcer stage IV: Wound care Frequent turns Colostomy declined by family (inability to divert feces in this chronic setting increases risks with ulcer and for recurrence of ulcers) Chronic Arevalo Follow for UTIs Hx of Gastric Ulcer Follow clinically PPI Monitor H/H periodically. FEN: Continue Nepro tube feeds. Appreciate dietary recommendations. Continue free water flushes. Supplement potassium. DVT prophylaxis: SCDs. Discharge Planning dc planning to SNF-no funding- SSI pending. Medardo Au MD Oct 29, 2016 11:37
[2016-10-29] MEDS: ACETAMINOPHEN/HYDROcodone 325 MG/5 MG TAB PO PRN (13:31)
--- NOTE | 2016-10-29 15:24 | HHI.PR ---
Subjective Remarks opens eyes on o2 , o2 SAT 96 on T PIECE Objective Vital Signs Date Time Temp Pulse Resp B/P Pulse Ox O2 Delivery O2 Flow Rate FiO2 10/29/16 13:33 86 16 101/70 100 10/29/16 12:00 95.4 78 20 111/71 94 10/29/16 11:00 98 T-piece 28 10/29/16 09:30 85 10/29/16 08:00 95.6 100 21 125/81 99 10/29/16 04:00 96.5 85 20 116/70 97 10/29/16 00:19 97.7 85 20 105/74 99 10/28/16 22:25 98 T-piece 5.00 28 10/28/16 21:59 96 10/28/16 20:00 98.5 98 20 111/71 99 10/28/16 18:42 93/59 10/28/16 16:00 97.7 95 20 142/79 98 I/O 10/28/16 10/28/16 10/28/16 10/29/16 10/29/16 10/29/16 07:00 15:00 23:00 07:00 15:00 23:00 Intake Total 1380 ml 0 ml 1420 ml 390 ml Output Total 750 ml 650 ml Balance 1380 ml -750 ml 770 ml 390 ml Intake Oral 0 ml Tube Feeding 780 ml 1020 ml 390 ml Other 600 ml 400 ml Output Urine Total 750 ml 650 ml Bladder Scan Volume Amount 392 ml # Bowel Movements 2 Procedures 01/02/16 PEG placement 01/02/16 tracheostomy 07/22/2016 Wide excision of sacral skin wound, biopsy of the cavity lining and debridement. PEG tube replacement 07/29/16 Objective Remarks GENERAL: SKIN: Warm and dry. HEAD: Atraumatic. Normocephalic. EYES: Pupils equal and round. No scleral icterus. No injection or drainage. ENT: No nasal bleeding or discharge. Mucous membranes pink and moist. NECK: Trachea midline. No JVD. TRACH. [place] CARDIOVASCULAR: Regular rate and rhythm. RESPIRATORY: No accessory muscle use. Clear to auscultation. Breath sounds equal bilaterally. GASTROINTESTINAL: Abdomen soft, non-tender, nondistended. Hepatic and splenic margins not palpable. MUSCULOSKELETAL: Extremities without clubbing, cyanosis, or edema. No obvious deformities. NEUROLOGICAL: Awake and alert. No obvious cranial nerve deficits. Motor grossly within normal limits. Five out of 5 muscle strength in the arms and legs. Normal speech. PSYCHIATRIC: Appropriate mood and affect; insight and judgment normal. Assessment and Plan Assessment and Plan impression respiratory failure CVA S/P TRACHEOSTOMY PLAN O2 NEEDED PULM. TOFLORENICAT Brandon Taylor MD Oct 29, 2016 15:24
[2016-10-29] MEDS: SENNOSIDES SYRUP 8.8 MG/5 ML CUP PO SCH (16:41)
[2016-10-29] MEDS: PARoxetine HCL SUSP 20 MG/10 ML UDC PEG SCH (18:26)
[2016-10-29] MEDS: INSULIN DETEMIR 100 UNITS/ML VIAL SQ SCH (22:07)
[2016-10-30] VITALS (11 sets, daily range): BP systolic 102–140; BP diastolic 57–83; PULSE 67–100; RESP 18–20; TEMP 95.7–98.3; O2SAT 96–100
[2016-10-30] MEDS: FREE WATER TUBE SCH ×6 (00:08→18:54)
[2016-10-30] MEDS: AMOXICILLIN (TRIHYDRATE) 500 MG CAP PO SCH ×3 (05:33→21:02)
[2016-10-30] MEDS: INSULIN ASPART SUPPLEMENTAL SCALE SQ SCH (05:34)
[2016-10-30] MEDS: HEPARIN SODIUM - SQ 10,000 UNITS/ML VIAL SQ SCH ×3 (05:34→21:02)
[2016-10-30] MEDS: ACETIC ACID 0.25% SOLN 1000 ML IRR BTL IRRIGATION SCH ×3 (05:35→21:47)
[2016-10-30] MEDS: POTASSIUM CHLORIDE 25 MEQ EFFERVESCENT TAB TUBE SCH (10:29)
[2016-10-30] MEDS: levETIRAcetam 500 MG/5 ML UDC TUBE SCH ×2 (10:29→21:00)
[2016-10-30] MEDS: DOCUSATE SODIUM 100 MG/10 ML UDC PO SCH ×2 (10:29→21:02)
[2016-10-30] MEDS: LACTULOSE SYRUP 20 GM/30 ML CUP PO SCH (10:29)
[2016-10-30] MEDS: DILTIAZEM HCL 30 MG TAB PEG SCH ×4 (10:30→21:00)
[2016-10-30] MEDS: METOPROLOL TARTRATE 50 MG TAB PO SCH ×2 (10:30→21:03)
[2016-10-30] MEDS: ASPIRIN 325 MG TAB TUBE SCH (10:30)
[2016-10-30] MEDS: BACITRACIN TOP OINT 15 GM TUBE TOP SCH ×2 (10:34→21:03)
[2016-10-30] MEDS: KETOCONAZOLE 2% CREAM 15 GM TOPICAL SCH ×2 (10:34→21:04)
[2016-10-30] MEDS: NYSTATIN 100,000 U/GM PWD 15 GM BTL TOPICAL SCH ×2 (10:34→21:02)
[2016-10-30] MEDS: PANTOPRAZOLE SODIUM 40 MG VIAL IV PUSH SCH ×2 (10:42→22:39)
[2016-10-30] MEDS: ARTIFICIAL TEARS OPTH SOLN 15 ML BTL EACH EYE SCH ×2 (10:43→21:00)
[2016-10-30] MEDS: SODIUM CHLORIDE 0.65% NASAL SPRAY 45 ML BTL NASAL SCH ×2 (10:44→21:00)
--- NOTE | 2016-10-30 10:56 | HHI.PR ---
Subjective Remarks in no distress. no fever. 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 d/w the RN and otherwise no other acute issues over night. Objective Vitals Vital Signs Date Time Temp Pulse Resp B/P Pulse Ox O2 Delivery O2 Flow Rate FiO2 10/30/16 08:00 95.7 99 20 113/74 99 10/30/16 04:36 90 10/30/16 04:00 98.2 88 20 118/74 98 10/30/16 00:00 98.2 92 20 127/73 99 10/29/16 22:36 100 T-piece 28 10/29/16 20:00 97.4 94 22 118/71 100 10/29/16 18:00 89 16 109/73 100 10/29/16 16:00 95.6 87 18 108/69 97 10/29/16 13:33 86 16 101/70 100 10/29/16 12:00 95.4 78 20 111/71 94 10/29/16 11:00 98 T-piece 28 I/O 10/29/16 10/29/16 10/29/16 10/30/16 10/30/16 10/30/16 07:00 15:00 23:00 07:00 15:00 23:00 Intake Total 390 ml 771 ml 527 ml 392 ml Output Total 900 ml 375 ml 350 ml Balance 390 ml -129 ml 152 ml 42 ml IV Total 0 ml Tube Feeding 390 ml 371 ml 527 ml 392 ml Other 400 ml Output Urine Total 900 ml 375 ml 350 ml Bladder Scan Volume Amount 392 ml # Bowel Movements 0 Imaging Last Impressions Tube Change 10/23/16 0000 Signed Impressions: Service Date/Time: Sunday, October 23, 2016 16:34 - CONCLUSION: Uncomplicated gastrojejunostomy tube exchange as above. Existing tube was patent with some luminal narrowing. The balloon port was damaged and leaking, however. Bobby Gray MD Chest X-Ray 10/18/16 0000 Signed Impressions: Service Date/Time: Tuesday, October 18, 2016 19:17 - CONCLUSION: 1. Minimal right perihilar streakiness consistent with probable atelectasis. 2. Elevation of the right hemidiaphragm. 3. Tracheostomy tube in good position above the geno. Eduardo Valenzuela MD Abdomen X-Ray 08/31/16 0000 Signed Impressions: Service Date/Time: Wednesday, August 31, 2016 16:36 - CONCLUSION: 1. No acute findings. Mild constipation. Durga Dotson MD Abdomen/Pelvis CT 04/12/16 0000 Signed Impressions: Service Date/Time: Tuesday, April 12, 2016 20:52 - CONCLUSION: 1. 6.4 cm necrotic mass or abscess in the soft tissues posteriorly just below the sacrum associated with some bony destructive change of the lower most sacrum and coccyx with inflammatory changes extending into the ischiorectal fossa and into the presacral retroperitoneum predominantly on the left side. There is associated fairly marked mural thickening of the anal verge and rectum. 2. There is gastrostomy and Arevalo catheter present. Stable abdominal aortic aneurysm. Durga Dotson MD Head Magnetic Resonance Angiography 03/05/16 0000 Signed Impressions: Service Date/Time: Saturday, March 05, 2016 09:26 - CONCLUSION: Persistent high-grade subtotal occlusive stenotic lesions in the distal right vertebral artery and proximal basilar artery with significant improvement in flow and recanalization following initial presentation of thrombosis. Stable interstitial circulation without significant stenosis. 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 There is decreasing restricted diffusion and increasing loss of volume characteristic of a subacute to chronic infarct. No evidence of acute infarct, acute hemorrhage mass or edema. Ernesto Kulkarni MD Head CT 01/16/16 0000 Signed Impressions: Service Date/Time: Saturday, January 16, 2016 10:51 - CONCLUSION: No extensive low density in the brainstem colin more prominent in the right the left extending into the right middle cerebellar peduncle consistent with brainstem infarct nonhemorrhagic acute Wellington West MD Neck Magnetic Resonance Angiography 12/22/15 1445 Signed Impressions: Service Date/Time: Tuesday, December 22, 2015 09:22 - CONCLUSION: Variant origin of the left vertebral artery from the aortic arch. No evidence of carotid stenosis. Glen Zamora MD Head/Brain Mag Res Venography 12/22/15 0000 Signed Impressions: Service Date/Time: Tuesday, December 22, 2015 09:22 - CONCLUSION: Normal MRV. Jonel Jones Jr., MD Objective Remarks GENERAL: on Trach- in no apparent distress. CARDIOVASCULAR: Regular rate and regular rhythm without murmurs, gallops, or rubs. RESPIRATORY: Clear to auscultation. Breath sounds equal bilaterally. No wheezes , rales, or rhonchi. GASTROINTESTINAL: Abdomen soft, non-tender,distended. hypoactive bowel sounds-PEG in place MUSCULOSKELETAL: Extremities without clubbing, cyanosis, or edema. NEURO: awake Procedures 01/02/16 PEG placement 01/02/16 tracheostomy 07/22/2016 Wide excision of sacral skin wound, biopsy of the cavity lining and debridement. PEG tube replacement 07/29/16 VAC changes- M-W-F /- GJ tube replacement Medications and IVs Current Medications IV Flush (NS Flush) 2 ml UNSCH PRN IVF FLUSH AFTER USING IV ACCESS Last administered on 09/28/16t 21:18; Start 12/21/15 at 06:00 Ondansetron HCl (Zofran Inj) 4 mg STK-MED ONCE .ROUTE ; Start 12/21/15 at 06:22; Stop 12/21/15 at 06:23; Status DC Ondansetron HCl (Zofran Inj) 4 mg ONCE ONCE IV PUSH Last administered on at 06:43; Start 12/21/15 at 06:30; Stop 12/21/15 at 06:31; Status DC Diltiazem HCl 20 mg 20 mg ONCE ONCE IV Last administered on 12/21/15at 06:42; Start 12/21/15 at 06:30; Stop 12/21/15 at 06:31; Status DC Diltiazem HCl/ Sodium Chloride (Cardizem Inj/NS Inj) 125 ml @ 0 mls/hr TITRATE IV Last administered on 12/21/15at 06:47; Start 12/21/15 at 06:30; Stop 12/21/15 at 13:00; Status DC Acetaminophen (Tylenol) 650 mg ONCE ONCE PO ; Start 12/21/15 at 06:45; Stop 12/20 at 06:46; Status DC Lorazepam (Ativan Inj) 1 mg ONCE ONCE IV PUSH Last administered on 12/21/15at 07 :22; Start 6/2/16 at 07:15; Stop 12/21/15 at 07:16; Status DC Etomidate (Amidate Inj) 40 mg STK-MED ONCE .ROUTE Last administered on at 08:17; Start 12/21/15 at 07:37; Stop 12/21/15 at 07:38; Status DC Succinylcholine Chloride 200 mg 200 mg STK-MED ONCE .ROUTE Last administered on 12/21/15at 08:18; Start 12/21/15 at 07:37; Stop 12/21/15 at 07:38; Status DC Propofol (Diprivan 1000 Mg/100ml Inj) 100 ml @ As Directed STK-MED ONCE .ROUTE Last administered on 12/21/15at 08:19; Start 12/21/15 at 07:46; Stop 12/21/15 at 07:47; Status DC Propofol (Diprivan 1000 Mg/100ml Inj) search Sets for Drip. NOW PRN IV SEDATION Last administered on 12/22/15at 06:25; Start 12/21/15 at 08:30; Stop 12/28 at 15:43; Status DC Gadodiamide (Omniscan Pf Inj) 18 ml STK-MED ONCE IV Last administered on at 10:11; Start 12/21/15 at 10:11; Stop 12/21/15 at 10:12; Status DC Pantoprazole Sodium (Protonix Inj) 40 mg DAILY IV Last administered on at 07:39; Start 12/21/15 at 13:00; Stop 01/03/16 at 10:10; Status DC Albuterol/ Ipratropium (Duoneb Neb) 1 ampule Q6HR NEB INH Last administered on 12/25/15at 07:51; Start 12/21/15 at 13:00; Stop 12/25/15 at 13:00; Status DC Miscellaneous Information 1 [id number] Last administered on 12/21/15at 13:00; Start 12/21/15 at 13:00; Stop 01/12/16 at 11:47; Status DC Chlorhexidine Gluconate (Chlorhexidine 2% Cloth) 3 pack Taper DAILY@04 TOP Last administered on 01/11/16at 04:10; Start 12/22/15 at 04:00; Stop 01/12/16 at 11:47; Status DC Chlorhexidine Gluconate 3 pack 3 pack UNSCH PRN TOP HYGIENIC CARE; Start at 13:00; Stop 01/12/16 at 11:47; Status DC Sodium Chloride (NS 1000 ml Inj) 1,000 ml @ 75 mls/hr [id number] IV Last administered on 12/22/15at 17:00; Start 12/21/15 at 13:00; Stop 12/22/15 at 19:01; Status DC Dextrose (D50w (Vial) Inj) 25 ml UNSCH PRN IV PUSH HYPOGLYCEMIA-SEE COMMENTS; Start 12/21/15 at 13:00; Stop 04/19/16 at 17:19; Status DC Glucagon (Glucagon Inj) 1 mg UNSCH PRN OTHER HYPOGLYCEMIA-SEE COMMENTS; Start 12/21/15 at 13:00; Stop 04/19/16 at 17:19; Status DC Insulin Human Regular (NovoLIN R SUPPLEMENTAL SCALE) 1 Q6H SQ Last administered on 01/04/16at 06:31; Start 12/21/15 at 13:00; Stop 01/04/16 at 10:05 ; Status DC Levetriacetam (Keppra) 500 mg Q12HR PO Last administered on 12/27/15at 09:00; Start 12/21/15 at 13:45; Stop 12/27/15 at 09:44; Status DC Heparin Sodium (Porcine) (Heparin Inj) 5,000 units BID SQ Last administered on 12/22/15at 20:52; Start 12/21/15 at 21:00; Stop 12/23/15 at 08:32; Status DC Warfarin Sodium (Coumadin) 7.5 mg ONCE ONCE PO Last administered on 12/21/15at 21:43; Start 12/21/15 at 21:00; Stop 12/21/15 at 21:01; Status DC Warfarin Sodium (Coumadin) 5 mg DAILY@16 PO Last administered on 12/23/15at 16:00 ; Start 12/22/15 at 16:00; Stop 12/26/15 at 09:29; Status DC Patient Medication Teaching (Coumadin Booklet) 1 ONCE ONCE XX Last administered on 12/21/15at 20:15; Start 12/21/15 at 20:15; Stop 12/21/15 at 20:16; Status DC Chlorhexidine Gluconate (Peridex 0.12% Liq) 15 ml BID@08,20 MT Last administered on 01/12/16at 08:00; Start 12/22/15 at 20:00; Stop 01/12/16 at 11:47 ; Status DC Gadodiamide 20 ml 20 ml STK-MED ONCE IV Last administered on 12/22/15at 09:55; Start 12/22/15 at 09:55; Stop 12/22/15 at 09:56; Status DC Pharmacy Profile Note ml @ 0 mls/hr UNSCH OTHER ; Start 12/22/15 at 11:00; Stop 12/22/15 at 19:43; Status DC Sodium Chloride 1,000 ml @ 50 mls/hr Q20H IV Last administered on 12/24/15at 20: 02; Start 12/22/15 at 18:44; Stop 12/25/15 at 11:52; Status DC Pharmacy Profile Note (Coumadin Consult Pharmacy) 0 ml @ 0 mls/hr UNSCH OTHER ; Start 12/22/15 at 19:45; Stop 01/04/16 at 12:25; Status DC Acetaminophen 650 mg 650 mg Q6H PRN PO TEMP > 100 Last administered on at 13:24; Start 12/23/15 at 02:45; Stop 12/30/15 at 15:04; Status DC Potassium Chloride 100 ml @ 50 mls/hr Q2H PRN IV For Potassium 2.8 - 3.2 mEq/L ; Start 12/23/15 at 08:30; Stop 01/09/16 at 11:14; Status DC Potassium Chloride (KCl 20 Meq Premix Inj) 100 ml @ 50 mls/hr Q2H PRN IV For Potassium 2.8 - 3.2 mEq/L; Start 12/23/15 at 08:30; Stop 01/09/16 at 11:14; Status DC Potassium Chloride 40 meq 40 meq UNSCH PRN PO/TUBE For Potassium 3.3 - 3.5 mEq/ L; Start 12/23/15 at 08:30; Stop 01/09/16 at 11:14; Status DC Potassium Chloride 100 ml @ 25 mls/hr UNSCH PRN IV For Potassium 3.3 - 3.5 mEq /L; Start 12/23/15 at 08:30; Stop 01/09/16 at 11:14; Status DC Potassium Chloride 100 ml @ 50 mls/hr Q2H PRN IV For Potassium 3.3 - 3.5 mEq/L ; Start 12/23/15 at 08:30; Stop 01/09/16 at 11:14; Status DC Magnesium Sulfate/ Sodium Chloride (Magnesium Sulfate Inj/NS Inj) 100 ml @ 50 mls/hr UNSCH PRN IV For Magnesium 0.9 - 1.1 mg/dL; Start 12/23/15 at 08:30; Stop 01/09/16 at 11:14; Status DC Magnesium Oxide 800 mg 800 mg UNSCH PRN PO For Magnesium 1.2 - 1.6 mg/dL; Start 12/23/15 at 08:30; Stop 01/09/16 at 11:14; Status DC Magnesium Sulfate/ Sodium Chloride (Magnesium Sulfate Inj/NS Inj) 100 ml @ 50 mls/hr UNSCH PRN IV For Magnesium 1.2 - 1.6 mg/dL; Start 12/23/15 at 08:30; Stop 01/09/16 at 11:14; Status DC Potassium Phosphate 2000 mg 2,000 mg Q4H PRN PO For Phosphorus < 2.5 mg/dL; Start 12/23/15 at 08:30; Stop 01/09/16 at 11:14; Status DC Sodium Phosphate/ Sodium Chloride (Sodium Phosphate Inj/NS 250 ml Inj) 250 ml @ 42 mls/hr UNSCH PRN IV For Phosphorus < 2.5 mg/dL; Start 12/23/15 at 08:30; Stop 01/09/16 at 11:14; Status DC Potassium Chloride (KCl 40 Meq/30 ml Liq) 40 meq UNSCH PRN PO/TUBE SEE LABEL COMMENTS; Start 12/23/15 at 08:30; Stop 01/09/16 at 11:14; Status DC Potassium Phosphate 2000 mg 2,000 mg UNSCH PRN PO/TUBE SEE LABEL COMMENTS; Start 12/23/15 at 08:30; Stop 01/09/16 at 11:14; Status DC Potassium Phosphate 30 mmol/ Sodium Chloride 260 ml @ 42 mls/hr UNSCH PRN IV SEE LABEL COMMENTS; Start 12/23/15 at 08:30; Stop 01/09/16 at 11:14; Status DC Sodium Chloride 1,000 ml @ 75 mls/hr [id number] IV ; Start 12/23/15 at 08:30; Stop 12/23/15 at 08:30; Status DC Piperacillin Sod/ Tazobactam Sod 50 ml @ 100 mls/hr Q6H IV Last administered on 12/30/15at 10:02; Start 12/23/15 at 10:00; Stop 12/30/15 at 14:50; Status DC Vancomycin HCl/ Sodium Chloride (Vancomycin Inj/ NS 250 ml Inj) 250 ml @ 250 mls/hr Q12H IV Last administered on 12/29/15at 09:01; Start 12/24/15 at 08:45; Stop 12/29/15 at 15:33; Status DC Warfarin Sodium (Coumadin) 4 mg DAILY@16 PO Last administered on 12/28/15at 16:00 ; Start 12/26/15 at 16:00; Stop 01/04/16 at 12:25; Status DC Levetriacetam (Keppra Liq) 500 mg Q12HR TUBE Last administered on 10/30/16t 10 :29; Start 12/27/15 at 21:00 Docusate Sodium (Colace Liq) 100 mg Q12HR TUBE Last administered on 01/15/16at 09:01; Start 12/27/15 at 21:00; Stop 04/16/16 at 08:50; Status DC Sennosides (Senna Liq) 8.8 mg DAILY TUBE Last administered on 01/15/16at 09:01 ; Start 12/27/15 at 17:00; Stop 01/15/16 at 20:37; Status DC Bisacodyl (Dulcolax Supp) 10 mg ONCE ONCE RECTAL ; Start 12/27/15 at 16:15; Stop 12/27/15 at 16:15; Status DC Albuterol/ Ipratropium (Duoneb Neb) 1 ampule Q4HR NEB PRN NEB RESPIRATORY DISTRESS Last administered on 12/29/15at 12:17; Start 12/27/15 at 22:00; Stop at 08:16; Status DC Bisacodyl (Dulcolax Supp) 10 mg ONCE ONCE RECTAL ; Start 12/28/15 at 12:00; Stop 12/28/15 at 12:01; Status DC Sodium Chloride (Sodium Chloride) 1 gm BID TUBE Last administered on 12/29/15at 09:02; Start 12/28/15 at 21:00; Stop 12/29/15 at 15:43; Status DC Lactulose (Lactulose Liq) 30 ml DAILY TUBE Last administered on 12/29/15at 09:02 ; Start 12/28/15 at 20:30; Stop 12/29/15 at 15:43; Status DC Levofloxacin (Levaquin) 750 mg DAILY@16 TUBE ; Start 12/29/15 at 16:00; Stop 05/05 at 16:00; Status DC Sodium Chloride (Sodium Chloride) 1 gm DAILY TUBE Last administered on at 07:29; Start 12/30/15 at 09:00; Stop 12/31/15 at 14:08; Status DC Water 200 ml 200 ml Q6HR G-TUBE Last administered on 12/31/15at 04:19; Start 06/05 at 14:45; Stop 12/31/15 at 07:31; Status DC Ceftriaxone Sodium/Sodium Chloride (Rocephin Inj/NS Inj) 100 ml @ 200 mls/hr Q12H IV Last administered on 01/03/16at 02:47; Start 12/30/15 at 15:00; Stop at 10:09; Status DC Acetaminophen (Tylenol 650 Mg/ 20 ml Liq) 650 mg Q6H PRN TUBE TEMP >100.4 Last administered on 10/25/16t 15:13; Start 12/30/15 at 15:15 Lactobacillus Acidophilus (Lactinex Pkt) 1 gm BID TUBE Last administered on at 09:00; Start 12/30/15 at 21:00; Stop 02/10/16 at 14:30; Status DC Enoxaparin Sodium (Lovenox Inj) 90 mg Q12H SQ Last administered on 01/01/16at 21 :57; Start 12/31/15 at 08:00; Stop 01/03/16 at 10:33; Status DC Water (Free Water) 100 ml Q12H G-TUBE ; Start 12/31/15 at 18:00; Stop 12/31/15 at 18:00; Status DC Acetaminophen/ Hydrocodone Bitart ([place] 5-325 Mg) 1 tab Q6H PRN PO PAIN Last administered on 05/26/16at 20:46; Start 12/31/15 at 15:00; Stop 06/02/16 at 21: 44; Status DC Fentanyl Citrate (Sublimaze Inj) 25 mcg Q1H PRN IV PUSH BREAKTHROUGH PAIN; Start 12/31/15 at 15:00; Stop 03/06/16 at 10:03; Status DC Water (Free Water) 200 ml Q8H G-TUBE Last administered on 01/01/16at 17:55; Start 12/31/15 at 18:00; Stop 01/02/16 at 09:56; Status DC Sodium Chloride (Sodium Chloride) 1 gm BID TUBE Last administered on 01/03/16at 07:39; Start 12/31/15 at 21:00; Stop 01/03/16 at 09:08; Status DC Miscellaneous Information Hold Anticoagulation after midni... ONCE ONCE OTHER ; Start 01/01/16 at 10:15; Stop 01/01/16 at 10:29; Status DC Sodium Chloride (NS 1000 ml Inj) 1,000 ml @ 50 mls/hr Q20H IV Last administered on 01/02/16at 12:26; Start 01/01/16 at 18:00; Stop 01/03/16 at 10:07 ; Status DC Midazolam HCl (Versed Inj) 5 mg STK-MED ONCE .ROUTE ; Start 01/02/16 at 12:47; Stop 01/02/16 at 12:48; Status DC Vecuronium Denison (Norcuron 10 Mg Inj) 10 mg STK-MED ONCE .ROUTE ; Start at 12:47; Stop 01/02/16 at 12:48; Status DC Fentanyl Citrate (Sublimaze Inj) 250 mcg ONCE ONCE IV PUSH Last administered on 01/02/16at 15:00; Start 01/02/16 at 15:00; Stop 01/02/16 at 15:01; Status DC Midazolam HCl (Versed Inj) 10 mg ONCE ONCE IV PUSH Last administered on at 15:00; Start 01/02/16 at 15:00; Stop 01/02/16 at 15:01; Status DC Rocuronium Denison (Zemuron Inj) 100 mg BOLUS ONCE IV Last administered on at 15:00; Start 01/02/16 at 15:00; Stop 01/02/16 at 15:01; Status DC Ketamine HCl (Ketalar Inj) 500 mg STK-MED ONCE .ROUTE ; Start 01/02/16 at 14:30 ; Stop 01/02/16 at 14:31; Status DC Propofol 230 mg 230 mg STK-MED ONCE IV ; Start 01/02/16 at 16:51; Stop 01/02/16 at 16:52; Status DC Sodium Chloride (NS 1000 ml Inj) 1,000 ml @ 0 mls/hr Q0M IV ; Start 01/03/16 at 10:15; Stop 01/17/16 at 17:30; Status DC Ranitidine HCl (Zantac Liq) 150 mg Q12HR PO Last administered on 01/17/16at 07: 39; Start 01/04/16 at 09:00; Stop 01/17/16 at 15:23; Status DC Enoxaparin Sodium 90 mg 90 mg Q12HR SQ Last administered on 01/11/16at 10:01; Start 01/04/16 at 09:00; Stop 01/11/16 at 12:35; Status DC Sodium Chloride (NS 500 ml Inj) 500 ml @ 0 mls/hr BOLUS ONCE IV Last administered on 01/03/16at 22:57; Start 01/03/16 at 23:00; Stop 01/03/16 at 23:01 ; Status DC Insulin Aspart (NovoLOG SUPPLEMENTAL SCALE) 1 Q6HR SQ Last administered on at 12:00; Start 01/04/16 at 12:00; Stop 03/24/16 at 13:58; Status DC Potassium Chloride (KCl 40 Meq/30 ml Liq) 40 meq Q4H NG Last administered on at 16:21; Start 01/04/16 at 13:00; Stop 01/04/16 at 17:01; Status DC Warfarin Sodium 5 mg 5 mg DAILY@1600 PO Last administered on 01/09/16at 17:21; Start 01/04/16 at 16:00; Stop 01/10/16 at 10:06; Status DC Pharmacy Profile Note (Coumadin Consult Pharmacy) 0 ml @ 0 mls/hr UNSCH XX ; Start 01/04/16 at 12:30; Stop 04/20/16 at 12:04; Status DC Insulin Detemir (Levemir Inj) 10 units Q12HR SQ Last administered on 01/05/16at 08:00; Start 01/04/16 at 21:00; Stop 01/05/16 at 08:42; Status DC Insulin Detemir (Levemir Inj) 5 units NOW ONCE SQ Last administered on at 13:28; Start 01/04/16 at 12:45; Stop 01/04/16 at 12:46; Status DC Albuterol/ Ipratropium (Duoneb Neb) 1 ampule Q4HR NEB PRN NEB dyspnea Last administered on 04/19/16at 02:24; Start 01/07/16 at 08:15; Stop 04/25/16 at 18:54 ; Status DC Warfarin Sodium (Coumadin) 7.5 mg ONCE ONCE PO Last administered on 01/07/16at 16:40; Start 01/07/16 at 16:00; Stop 01/07/16 at 16:01; Status DC Nystatin (Mycostatin Powder) 1 applic Q12HR TOPICAL Last administered on t 10:34; Start 01/08/16 at 21:00 Ipratropium Denison (Atrovent Neb) 0.5 mg TID NEB NEB Last administered on 02/20at 13:17; Start 01/08/16 at 20:00; Stop 02/21/16 at 17:52; Status DC Warfarin Sodium (Coumadin) 5 mg DAILY@1600 PO Last administered on 01/11/16at 14 :26; Start 01/11/16 at 16:00; Stop 01/12/16 at 09:45; Status DC Warfarin Sodium (Coumadin) 6 mg ONCE PO Last administered on 01/10/16at 17:10; Start 01/10/16 at 16:00; Stop 01/10/16 at 21:00; Status DC Metoprolol Tartrate (Lopressor) 50 mg Q12HR GT Last administered on 01/11/16at 10:02; Start 01/10/16 at 11:00; Stop 01/11/16 at 12:30; Status DC Metoprolol Tartrate (Lopressor) 50 mg TID GT Last administered on 01/14/16at 08: 24; Start 01/11/16 at 13:00; Stop 01/14/16 at 08:28; Status DC Insulin Detemir (Levemir Inj) 10 units HS SQ Last administered on 01/11/16at 22: 23; Start 01/11/16 at 21:00; Stop 01/12/16 at 11:47; Status DC Warfarin Sodium (Coumadin) 4 mg DAILY@16 PO ; Start 01/12/16 at 16:00; Stop at 16:00; Status DC Insulin Detemir (Levemir Inj) 20 units HS SQ Last administered on 01/13/16at 20: 26; Start 01/12/16 at 21:00; Stop 01/14/16 at 08:28; Status DC Warfarin Sodium (Coumadin) 2 mg DAILY@16 PO Last administered on 01/13/16at 17: 05; Start 01/12/16 at 16:00; Stop 01/14/16 at 11:23; Status DC Insulin Detemir (Levemir Inj) 22 units HS SQ Last administered on 01/14/16at 21: 37; Start 01/14/16 at 21:00; Stop 01/15/16 at 10:06; Status DC Metoprolol Tartrate (Lopressor) 75 mg TID GT Last administered on 03/10/16at 17: 43; Start 01/14/16 at 09:00; Stop 03/10/16 at 21:13; Status DC Miscellaneous (Pill Splitter) 1 ea UNSCH PRN OTHER SEE LABEL COMMENTS; Start at 08:30 Warfarin Sodium (Coumadin) 4 mg DAILY@1600 PO Last administered on 01/21/16at 16: 51; Start 01/14/16 at 16:00; Stop 01/23/16 at 09:29; Status DC Patient Medication Teaching (Coumadin Booklet) 1 ONCE ONCE XX ; Start 01/14/16 at 16:00; Stop 01/14/16 at 16:01; Status DC Insulin Detemir (Levemir Inj) 24 units HS SQ Last administered on 03/04/16at 21: 09; Start 01/15/16 at 21:00; Stop 03/05/16 at 11:17; Status DC Citalopram Hydrobromide (CeleXA) 20 mg DAILY PEG Last administered on at 08:01; Start 01/16/16 at 09:00; Stop 01/16/16 at 09:41; Status DC Sennosides (Senna Liq) 8.8 mg BID TUBE Last administered on 02/20/16at 08:32; Start 01/15/16 at 21:00; Stop 02/20/16 at 16:13; Status DC Gadodiamide 18 ml 18 ml STK-MED ONCE IV ; Start 01/16/16 at 20:40; Stop at 20:41; Status DC Sodium Chloride (NS 1000 ml Inj) 1,000 ml @ 125 mls/hr Q8H IV Last administered on 01/17/16at 15:11; Start 01/17/16 at 15:00; Stop 01/17/16 at 17:31 ; Status DC Ranitidine HCl 150 mg 150 mg Q24H PO Last administered on 07/28/16t 08:54; Start 01/18/16 at 09:00; Stop 07/30/16 at 10:05; Status DC Sodium Chloride 1,000 ml @ 75 mls/hr [id number] IV Last administered on at 05:22; Start 01/17/16 at 18:00; Stop 01/18/16 at 09:28; Status DC Sodium Chloride/ Sterile Water (Sodium Chloride 23.4% Inj/Sterile Water For Inj ) 1,009.625 ml @ 60 mls/hr [id number] IV Last administered on 01/21/16at 22:46; Start 01/18/16 at 11:00; Stop 01/22/16 at 10:09; Status DC Potassium Chloride (KCl) 40 meq ONCE ONCE PO ; Start 01/18/16 at 09:30; Stop at 09:31; Status DC Potassium Chloride (KCl 40 Meq/30 ml Liq) 40 meq ONCE ONCE TUBE Last administered on 01/18/16at 11:08; Start 01/18/16 at 11:00; Stop 01/18/16 at 11:01 ; Status DC Water (Free Water) 300 ml Q4HR TUBE Last administered on 01/19/16at 08:00; Start 01/18/16 at 12:00; Stop 01/19/16 at 10:43; Status DC Water (Free Water) 400 ml Q4HR TUBE Last administered on 04/16/16at 04:00; Start 01/19/16 at 12:00; Stop 04/16/16 at 09:09; Status DC Potassium Chloride (KCl 40 Meq/30 ml Liq) 40 meq ONCE ONCE NG Last administered on 01/19/16at 11:41; Start 01/19/16 at 11:00; Stop 01/19/16 at 11:01; Status DC Potassium Chloride 60 meq 60 meq ONCE ONCE PO/TUBE Last administered on at 13:30; Start 01/21/16 at 11:15; Stop 01/21/16 at 11:27; Status DC Sodium Chloride (1/2 NS 1000 ml Inj) 1,000 ml @ 30 mls/hr Q24H IV Last administered on 02/06/16at 11:26; Start 01/22/16 at 11:00; Stop 02/07/16 at 14:49 ; Status DC Warfarin Sodium (Coumadin) 3 mg DAILY@16 PO Last administered on 01/23/16at 17:19 ; Start 01/23/16 at 16:00; Stop 01/24/16 at 14:05; Status DC Warfarin Sodium (Coumadin) 3 mg DAILY@16 PO Last administered on 01/25/16at 15:59 ; Start 01/25/16 at 16:00; Stop 01/26/16 at 15:04; Status DC Warfarin Sodium (Coumadin) 4 mg ONCE@1600 ONCE PO Last administered on at 16:55; Start 01/24/16 at 16:00; Stop 01/24/16 at 16:01; Status DC Warfarin Sodium (Coumadin) 3 mg DAILY@16 PO ; Start 01/27/16 at 16:00; Stop at 16:00; Status DC Warfarin Sodium (Coumadin) 4 mg ONCE@1600 ONCE PO Last administered on at 16:52; Start 01/26/16 at 16:00; Stop 01/26/16 at 16:01; Status DC Potassium Chloride (KCl 40 Meq/30 ml Liq) 80 meq ONCE ONCE PO Last administered on 01/27/16at 07:45; Start 01/27/16 at 07:45; Stop 01/27/16 at 08:10; Status DC Warfarin Sodium (Coumadin) 4 mg DAILY@16 PO Last administered on 02/02/16at 17: 22; Start 01/27/16 at 16:00; Stop 02/03/16 at 11:37; Status DC Acetic Acid (Acetic Acid 0.25% Irr Btl) 10 ml Q8HR IRRIGATION Last administered on 02/05/16at 06:00; Start 01/28/16 at 22:00; Stop 02/05/16 at 15:51 ; Status DC Warfarin Sodium 3 mg 3 mg DAILY@1600 PO Last administered on 02/11/16at 17:34; Start 02/03/16 at 16:00; Stop 02/12/16 at 12:45; Status DC Ceftriaxone Sodium/Sodium Chloride (Rocephin Inj/NS Inj) 100 ml @ 200 mls/hr Q24H IV Last administered on 02/10/16at 05:23; Start 02/05/16 at 06:30; Stop at 14:32; Status DC Acetic Acid (Acetic Acid 0.25% Irr Btl) 10 ml Q8HR IRRIGATION ; Start 02/05/16 at 16:00; Status Cancel Acetic Acid (Acetic Acid 0.25% Irr Btl) 10 ml Q8HR IRRIGATION Last administered on 10/29/16t 05:48; Start 02/05/16 at 16:00 Lactobacillus Acidophilus (Lactinex) 1 tab Q12HR PO Last administered on at 08:25; Start 02/10/16 at 21:00; Stop 02/12/16 at 16:05; Status DC Warfarin Sodium (Coumadin) 4 mg DAILY@1600 PO Last administered on 02/14/16at 15 :56; Start 02/12/16 at 16:00; Stop 02/15/16 at 10:17; Status DC Paroxetine HCl (Paxil Liq) 20 mg DAILY PEG Last administered on 02/25/16at 07:33 ; Start 02/16/16 at 09:00; Stop 02/25/16 at 10:36; Status DC Warfarin Sodium (Coumadin) 3 mg DAILY@1600 PO Last administered on 02/19/16at 16: 42; Start 02/15/16 at 16:00; Stop 02/20/16 at 08:50; Status DC Warfarin Sodium (Coumadin) 4 mg DAILY@16 PO Last administered on 8/3/16at 15:54 ; Start 02/20/16 at 16:00; Stop 02/22/16 at 08:46; Status DC Sennosides (Senna Liq) 8.8 mg DAILY TUBE Last administered on 05/26/16at 08:14 ; Start 02/21/16 at 09:00; Stop 05/27/16 at 11:51; Status DC Albuterol Sulfate (Albuterol Neb) 2.5 mg QID NEB INH Last administered on at 19:51; Start 02/21/16 at 20:00; Stop 02/25/16 at 20:00; Status DC Acetylcysteine (Mucomyst 10% Neb) 1 ml QID NEB NEB Last administered on at 16:32; Start 02/21/16 at 20:00; Stop 02/23/16 at 16:01; Status DC Warfarin Sodium (Coumadin) 3 mg DAILY@16 PO Last administered on 02/22/16at 15:59 ; Start 02/22/16 at 16:00; Stop 02/23/16 at 08:56; Status DC Warfarin Sodium (Coumadin) 3 mg DAILY@16 PO Last administered on 02/28/16at 16: 17; Start 02/24/16 at 16:00; Stop 02/29/16 at 10:04; Status DC Warfarin Sodium (Coumadin) 2 mg ONCE PO Last administered on 02/23/16at 16:22; Start 02/23/16 at 16:00; Stop 02/23/16 at 21:00; Status DC Paroxetine HCl (Paxil Liq) 20 mg DAILY@1900 PEG Last administered on 03/08/16at 18:11; Start 02/26/16 at 19:00; Stop 03/09/16 at 11:31; Status DC Warfarin Sodium (Coumadin) 3 mg DAILY@16 PO Last administered on 03/06/16at 16: 22; Start 03/01/16 at 16:00; Stop 03/09/16 at 10:30; Status DC Warfarin Sodium (Coumadin) 1 mg ONCE PO Last administered on 02/29/16at 17:28; Start 02/29/16 at 16:00; Stop 02/29/16 at 21:00; Status DC Insulin Detemir (Levemir Inj) 27 units HS SQ Last administered on 03/05/16at 20: 25; Start 03/05/16 at 21:00; Stop 03/06/16 at 10:03; Status DC Patient Medication Teaching (Coumadin Booklet) 1 ONCE ONCE XX Last administered on 03/05/16at 16:00; Start 03/05/16 at 16:00; Stop 03/05/16 at 16:01 ; Status DC Insulin Detemir (Levemir Inj) 30 units HS SQ Last administered on 03/21/16at 22: 32; Start 03/06/16 at 21:00; Stop 03/22/16 at 14:48; Status DC Trimethoprim/ Sulfamethoxazole (Bactrim 800-160 Mg/20 ml Liq) 20 ml Q12HR PO Last administered on 03/14/16at 08:01; Start 03/07/16 at 11:15; Stop 03/14/16 at 11:14; Status DC Lorazepam (Ativan Inj) 0.5 mg Q4H PRN IV PUSH seizures or agitation; Start at 23:00 Metronidazole (Flagyl) 500 mg Q8H PO Last administered on 03/14/16at 15:51; Start 03/08/16 at 17:00; Stop 03/14/16 at 23:00; Status DC Warfarin Sodium (Coumadin) 2 mg DAILY@16 PO Last administered on 03/09/16at 17: 20; Start 03/09/16 at 16:00; Stop 03/10/16 at 10:33; Status DC Paroxetine HCl (Paxil) 20 mg DAILY@1900 PEG Last administered on 03/11/16at 17: 55; Start 03/09/16 at 19:00; Stop 03/12/16 at 08:31; Status DC Warfarin Sodium 3 mg 3 mg DAILY@16 PO Last administered on 04/12/16at 15:28; Start 03/10/16 at 16:00; Stop 04/12/16 at 16:39; Status DC Pharmacy Profile Note 0 ml @ 0 mls/hr UNSCH OTHER ; Start 03/10/16 at 14:15; Stop 03/18/16 at 11:33; Status DC Vancomycin HCl/ Sodium Chloride (Vancomycin Inj/ NS 500 ml Inj) 530 ml @ 265 mls/hr Q12H IV Last administered on 03/17/16at 16:26; Start 03/10/16 at 16:00; Stop 03/17/16 at 23:00; Status DC Miscellaneous Information SPECIFIC LAB TO BE ELISA... ONCE ONCE XX Last administered on 03/12/16at 04:45; Start 03/12/16 at 03:45; Stop 03/12/16 at 03:46 ; Status DC Metoprolol Tartrate (Lopressor) 75 mg Q8HR PO Last administered on 04/02/16at 13 :13; Start 03/10/16 at 22:00; Stop 04/02/16 at 17:31; Status DC Paroxetine HCl (Paxil Liq) 20 mg DAILY@1900 PEG Last administered on 10/29/16t 18:26; Start 03/12/16 at 19:00 Warfarin Sodium (Coumadin) 1 mg ONCE PO Last administered on 03/21/16at 16:24; Start 03/21/16 at 16:00; Stop 03/21/16 at 21:00; Status DC Warfarin Sodium (Coumadin) 1 mg ONCE PO Last administered on 03/22/16at 17:46; Start 03/22/16 at 16:00; Stop 03/22/16 at 21:00; Status DC Insulin Detemir (Levemir Inj) 32 units HS SQ Last administered on 03/22/16at 20: 18; Start 03/22/16 at 21:00; Stop 03/23/16 at 13:35; Status DC Diltiazem HCl (Cardizem Cd) 120 mg DAILY PO Last administered on 04/14/16at 07: 43; Start 03/22/16 at 16:00; Stop 04/14/16 at 14:39; Status DC Hyoscyamine Sulfate (Levsin Liq) 0.125 mg Q4H PRN PEG INCREASED SECRETIONS Last administered on 04/10/16at 08:05; Start 03/22/16 at 15:15; Stop 04/11/16 at 10:24; Status DC Warfarin Sodium (Coumadin) 2 mg ONCE ONCE PO Last administered on 03/23/16 17: 26; Start 03/23/16 at 16:00; Stop 03/23/16 at 16:01; Status DC Insulin Detemir (Levemir Inj) 34 units HS SQ Last administered on 03/23/16 20: 01; Start 03/23/16 at 21:00; Stop 03/24/16 at 13:53; Status DC Insulin Detemir (Levemir Inj) 35 units HS SQ Last administered on 10/29/16 22: 07; Start 03/24/16 at 21:00 Insulin Aspart (NovoLOG SUPPLEMENTAL SCALE) 1 ACHS SLIDING SCALE SQ Last administered on 04/16/16 22:27; Start 03/24/16 at 16:00; Stop 04/19/16 at 17:19 ; Status DC Warfarin Sodium (Coumadin) 1 mg ONCE ONCE PO Last administered on 03/30/16at 16 :59; Start 03/30/16 at 16:00; Stop 03/30/16 at 16:01; Status DC Potassium Chloride (KCl 40 Meq/30 ml Liq) 40 meq ONCE ONCE NG Last administered on 03/31/16at 21:28; Start 03/31/16 at 18:30; Stop 03/31/16 at 18:31 ; Status DC Potassium Bicarb/ Potassium Chloride (K-Lyte Cl Eff) 25 meq ONCE ONCE PEG Last administered on 04/02/16at 12:01; Start 04/02/16 at 13:00; Stop 04/02/16 at 13:01; Status DC Metoprolol Tartrate (Lopressor) 75 mg BID PO Last administered on 05/28/16at 21: 03; Start 04/02/16 at 21:00; Stop 05/29/16 at 11:21; Status DC Potassium Bicarb/ Potassium Chloride (K-Lyte Cl Eff) 25 meq ONCE ONCE PEG Last administered on 04/04/16at 14:40; Start 04/04/16 at 12:30; Stop 04/04/16 at 12:31; Status DC Linezolid (Zyvox) 600 mg Q12HR PO Last administered on 04/16/16at 09:11; Start 04/05/16 at 15:00; Stop 04/16/16 at 12:00; Status DC Artificial Tears (Lacrilube Opht Oint) 1 applic Q12HR EACH EYE Last administered on 09/04/16 21:00; Start 04/10/16 at 11:00; Stop 09/05/16 at 14:38 ; Status DC Hyoscyamine Sulfate (Levsin) 0.25 mg Q4H PRN G-TUBE INCREASED SECRETIONS Last administered on 08/31/16 05:02; Start 04/11/16 at 10:30 Diatrizoate Meglum/ Diatrizoate Sod (Md [place] Liq) 18 ml ONCE ONCE PO Last administered on 04/12/16at 16:45; Start 04/12/16 at 16:15; Stop 04/12/16 at 16:16; Status DC Warfarin Sodium (Coumadin) 3 mg DAILY@16 PO ; Start 04/13/16 at 16:00; Stop 05/27/16 at 11:51; Status DC Iohexol (Omnipaque 350 Inj) 98 ml STK-MED ONCE IV Last administered on at 21:01; Start 04/12/16 at 21:01; Stop 04/12/16 at 21:02; Status DC Diltiazem HCl (Cardizem Cd) 180 mg DAILY PO ; Start 04/15/16 at 09:00; Stop at 08:50; Status DC Ondansetron HCl (Zofran Inj) 4 mg Q6HR PRN IV PUSH nausea/vomiting Last administered on 08/10/16 10:16; Start 04/14/16 at 19:45 Diltiazem HCl 60 mg 60 mg QID PO Last administered on 04/25/16at 17:26; Start at 13:00; Stop 04/25/16 at 19:06; Status DC Sodium Chloride 500 ml @ 500 mls/hr BOLUS ONCE IV Last administered on at 09:15; Start 04/15/16 at 09:15; Stop 04/15/16 at 10:14; Status DC Potassium Chloride/Dextrose/ Sodium Chloride (KCl Inj/D5W-NS 1000 ml Inj) 1,005 ml @ 100 mls/hr Q10H3M IV Last administered on 04/15/16at 21:03; Start at 11:00; Stop 04/16/16 at 09:09; Status DC Enoxaparin Sodium (Lovenox Inj) 90 mg Q12H SQ Last administered on 04/16/16at 21 :12; Start 04/16/16 at 09:00; Stop 04/17/16 at 10:37; Status DC Water 200 ml 200 ml Q4HR TUBE Last administered on 10/30/16 10:30; Start 04/16 at 12:00 Sodium Chloride 1,000 ml @ 84 mls/hr [id number] IV Last administered on at 08:38; Start 04/16/16 at 10:00; Stop 04/20/16 at 12:04; Status DC Ceftriaxone Sodium/Sodium Chloride (Rocephin Inj/NS Inj) 100 ml @ 200 mls/hr Q24H IV Last administered on 05/02/16at 13:19; Start 04/16/16 at 12:00; Stop 05/03/16 at 12:06; Status DC Acetaminophen/ Hydrocodone Bitart ([place] 5-325 Mg) 1 tab Q6HR PEG Last administered on 09/17/16 06:42; Start 04/18/16 at 18:00; Stop 09/17/16 at 09:17 ; Status DC Lactulose (Lactulose Liq) 30 ml NOW ONCE PEG Last administered on 04/19/16at 17 :21; Start 04/19/16 at 17:30; Stop 04/19/16 at 17:31; Status DC Lactulose (Lactulose Liq) 30 ml DAILY PEG Last administered on 05/26/16at 08:14 ; Start 04/20/16 at 09:00; Stop 05/27/16 at 11:39; Status DC Potassium Bicarb/ Potassium Chloride (K-Lyte Cl Eff) 50 meq ONCE ONCE PO Last administered on 04/20/16at 05:52; Start 04/20/16 at 05:45; Stop 04/20/16 at 05:46; Status DC Furosemide (Lasix Inj) 20 mg ONCE ONCE IV PUSH Last administered on 04/20/16at 17:35; Start 04/20/16 at 12:00; Stop 04/20/16 at 12:06; Status DC Insulin Aspart (NovoLOG SUPPLEMENTAL SCALE) 1 ACHS SLIDING SCALE SQ Last administered on 06/02/16at 12:10; Start 04/20/16 at 16:00; Stop 06/02/16 at 21: 44; Status DC Dextrose (D50w (Vial) Inj) 25 ml UNSCH PRN IV HYPOGLYCEMIA-SEE COMMENTS; Start 04/20/16 at 12:00 Glucagon (Glucagon Inj) 1 mg UNSCH PRN IM/SQ HYPOGLYCEMIA-SEE COMMENTS; Start 04/20/16 at 12:00 Lactobacillus Acidophilus (Lactinex) 1 tab Q12HR PEG Last administered on 06/06at 21:34; Start 04/22/16 at 09:00; Stop 06/07/16 at 09:32; Status DC Furosemide (Lasix Inj) 20 mg Q12H IV PUSH Last administered on 04/24/16at 08:52 ; Start 04/22/16 at 09:00; Stop 04/24/16 at 09:25; Status DC Potassium Bicarb/ Potassium Chloride (K-Lyte Cl Eff) 25 meq Q12HR TUBE Last administered on 05/27/16at 08:17; Start 04/22/16 at 09:00; Stop 05/27/16 at 11:51 ; Status DC Albumin Human (Albumin 25% Inj) 12.5 gm Q12H IV Last administered on 04/24/16at 08:46; Start 04/22/16 at 09:00; Stop 04/24/16 at 09:25; Status DC Furosemide (Lasix Inj) 20 mg DAILY IV PUSH Last administered on 05/08/16at 09: 01; Start 04/25/16 at 09:00; Stop 05/08/16 at 11:06; Status DC Albumin Human (Albumin 25% Inj) 12.5 gm DAILY IV Last administered on at 09:02; Start 04/25/16 at 10:00; Stop 05/08/16 at 11:06; Status DC Furosemide (Lasix Inj) 40 mg ONCE ONCE IV PUSH Last administered on 04/25/16at 18:15; Start 04/25/16 at 18:15; Stop 04/25/16 at 18:16; Status DC Albuterol/ Ipratropium (Duoneb Neb) 1 ampule Q6HR NEB NEB Last administered on 04/27/16at 15:52; Start 04/25/16 at 18:30; Stop 04/27/16 at 19:45; Status DC Ipratropium [place] (Atrovent Neb) 0.5 mg Q6HR NEB NEB Last administered on at 16:51; Start 04/25/16 at 22:00; Stop 04/27/16 at 16:44; Status DC Levalbuterol HCl (Xopenex Neb) 0.31 mg Q4HR NEB NEB Last administered on at 23:48; Start 04/25/16 at 20:00; Stop 04/27/16 at 16:43; Status DC Levalbuterol HCl (Xopenex Neb) 0.31 mg Q2HR NEB PRN NEB SHORTNESS OF BREATH; Start 04/25/16 at 18:45; Stop 04/28/16 at 10:50; Status DC Diltiazem HCl (Cardizem) 90 mg QID PEG Last administered on 07/17/16at 09:27; Start 04/25/16 at 21:00; Stop 07/17/16 at 17:52; Status DC Diltiazem HCl (Cardizem) 30 mg NOW ONCE PEG Last administered on 04/25/16at 21: 36; Start 04/25/16 at 19:15; Stop 04/25/16 at 19:16; Status DC Levalbuterol HCl (Xopenex Neb) 0.31 mg Q8HR NEB NEB ; Start 04/28/16 at 00:00; Stop 04/28/16 at 10:50; Status DC Levalbuterol HCl (Xopenex Neb) 0.63 mg Q4HR NEB PRN NEB SHORTNESS OF BREATH Last administered on 05/04/16at 15:26; Start 04/28/16 at 11:00; Stop 05/04/16 at 00:51; Status DC Levalbuterol HCl (Xopenex Neb) 0.63 mg Q8HR NEB NEB Last administered on 05/04at 00:07; Start 04/28/16 at 16:00; Stop 05/04/16 at 00:50; Status DC Polyethylene Glycol/ Electrolytes 4000 ml 4,000 ml ONCE ONCE PO Last administered on 05/05/16at 08:10; Start 05/05/16 at 08:45; Stop 05/05/16 at 08 :46; Status DC Cefazolin Sodium/ Dextrose 50 ml @ 100 mls/hr ONCE ONCE IV ; Start 05/06/16 at 14:00; Stop 05/06/16 at 14:29; Status DC Metronidazole 100 ml @ 100 mls/hr ONCE ONCE IV Last administered on at 14:00; Start 05/06/16 at 14:00; Stop 05/06/16 at 14:59; Status DC Ceftriaxone Sodium/Sodium Chloride (Rocephin Inj/NS Inj) 100 ml @ 200 mls/hr Q24H IV Last administered on 06/09/16at 12:36; Start 05/03/16 at 12:00; Stop 06/10/16 at 12:48; Status DC Levalbuterol HCl (Xopenex Neb) 0.63 mg Q8HR NEB NEB Last administered on 05/05at 08:00; Start 05/04/16 at 00:49; Stop 05/05/16 at 08:07; Status DC Levalbuterol HCl (Xopenex Neb) 0.63 mg Q4HR NEB PRN NEB SHORTNESS OF BREATH Last administered on 10/18/16 15:44; Start 05/05/16 at 12:00 Levalbuterol HCl (Xopenex Neb) 0.63 mg Q8HR NEB NEB Last administered on 05/08at 23:56; Start 05/05/16 at 08:15; Stop 05/09/16 at 08:15; Status DC Potassium Bicarb/ Potassium Chloride (K-Lyte Cl Eff) 25 meq DAILY TUBE Last administered on 10/30/16 10:29; Start 05/28/16 at 09:00 Aspirin (Aspirin) 325 mg DAILY TUBE Last administered on 10/30/16 10:30; Start 05/27/16 at 11:40 Docusate Sodium (Colace Liq) 100 mg DAILY PRN PO constipation Last administered on 08/16/16 21:09; Start 05/27/16 at 11:45; Stop 08/31/16 at 09:00 ; Status DC Metoprolol Tartrate (Lopressor) 50 mg BID PO Last administered on 08/23/16 09: 03; Start 05/29/16 at 21:00; Stop 08/23/16 at 15:33; Status DC Acetaminophen/ Hydrocodone Bitart ([place] 5-325 Mg) 1 tab Q6H PRN TUBE BREAKTHROUGH PAIN Last administered on 08/02/16 15:11; Start 06/03/16 at 03:00 ; Stop 09/17/16 at 14:33; Status DC Insulin Aspart (NovoLOG SUPPLEMENTAL SCALE) 1 ACHS SLIDING SCALE SQ Last administered on 06/06/16at 21:35; Start 06/03/16 at 07:00; Stop 06/07/16 at 12 :24; Status DC Lactobacillus Acidophilus (Lactinex) 1 tab TID PEG Last administered on 09:13; Start 06/07/16 at 13:00; Stop 10/13/16 at 12:08; Status DC Insulin Aspart 1 1 AC BREAKFAST SQ Last administered on 10/28/16 06:13; Start 06/08/16 at 07:00 Ceftriaxone Sodium/Sodium Chloride (Rocephin Inj/NS Inj) 100 ml @ 200 mls/hr Q24H IV Last administered on 07/28/16 12:19; Start 06/10/16 at 12:00; Stop 07/29/16 at 13:30; Status DC Heparin Sodium (Porcine) (Heparin Inj) 5,000 units Q12HR SQ Last administered on 06/11/16at 00:58; Start 06/10/16 at 14:15; Stop 06/11/16 at 06:21; Status DC Heparin Sodium (Porcine) (Heparin Inj) 5,000 units Q8HR SQ Last administered on 10/30/16 05:34; Start 06/11/16 at 14:00 Diltiazem HCl (Cardizem) 30 mg QID PEG Last administered on 08/16/16 08:31; Start 07/17/16 at 18:00; Stop 08/16/16 at 12:06; Status DC Bacitracin 1 applic 1 applic BID TOP Last administered on 10/30/16 10:34; Start 07/20/16 at 10:00 Lactated Ringer's 1,000 ml @ 30 mls/hr Q24H IV ; Start 07/21/16 at 17:45; Stop 08/14/16 at 12:08; Status DC Sodium Chloride (NS 500 ml Inj) 500 ml @ 30 mls/hr [id number] IV ; Start 07/21/16 at 17:45; Stop 07/22/16 at 17:44; Status DC Insulin Human Regular (NovoLIN R INJ) See Protocol Table ... UNSCH X1 PRN SQ SEE PROTOCOL; Start 07/21/16 at 17:45; Stop 07/22/16 at 17:44; Status DC Metoprolol Tartrate (Lopressor) 25 mg UNSCH X1 PRN PO SEE LABEL COMMENTS; Start 07/21/16 at 17:45; Stop 07/22/16 at 17:44; Status DC Lidocaine/ Epinephrine (Xylocaine-Epi 1%-1:100,000 Inj) 40 ml STK-MED ONCE .ROUTE Last administered on 07/22/16 10:56; Start 07/22/16 at 10:04; Stop at 10:05; Status DC Ketamine HCl (Ketalar Inj) 500 mg STK-MED ONCE .ROUTE ; Start 07/22/16 at 10:50; Stop 07/22/16 at 10:51; Status DC Propofol 600 mg 600 mg STK-MED ONCE IV ; Start 07/22/16 at 12:00; Stop 07/23/16 at 14:36; Status DC Dextrose 1,000 ml @ 40 mls/hr Q24H ONCE IV Last administered on 07/28/16 14:33 ; Start 07/28/16 at 14:00; Stop 07/29/16 at 13:59; Status DC Ampicillin Sodium/ Sulbactam Sodium/ Sodium Chloride (Unasyn Inj/NS Inj) 100 ml @ 200 mls/hr Q6H IV Last administered on 08/01/16 12:30; Start 07/29/16 at 14: 00; Stop 08/01/16 at 14:13; Status DC Ondansetron HCl 4 mg 4 mg ONCE ONCE IV PUSH Last administered on 07/30/16 02: 46; Start 07/30/16 at 00:30; Stop 07/30/16 at 00:33; Status DC Lactated Ringer's 1,000 ml @ 30 mls/hr Q24H IV ; Start 07/30/16 at 06:00; Stop 08/14/16 at 12:09; Status DC Sodium Chloride (NS 500 ml Inj) 500 ml @ 30 mls/hr [id number] IV ; Start 07/30/16 at 06:00; Stop 07/31/16 at 05:59; Status DC Pantoprazole Sodium (Protonix Inj) 40 mg Q12H IV PUSH Last administered on 10/30 10:42; Start 07/30/16 at 10:15 Propofol 200 mg 200 mg STK-MED ONCE IV ; Start 07/30/16 at 09:41; Stop 07/30/16 at 10:19; Status DC Piperacillin Sod/ Tazobactam Sod (Zosyn 4.5 Gm Premix) 100 ml @ 200 mls/hr Q6H IV Last administered on 08/07/16 09:37; Start 08/01/16 at 16:00; Stop at 16:10; Status DC Linezolid (Zyvox) 600 mg Q12HR PO Last administered on 08/22/16 09:10; Start at 21:00; Stop 08/22/16 at 15:55; Status DC Sodium Chloride ([place]) 1 spray BID NASAL Last administered on 10:44; Start 08/01/16 at 21:00 Metronidazole 500 mg 500 mg Q8H PO Last administered on 08/08/16 08:28; Start 08/07/16 at 16:00; Stop 08/08/16 at 16:10; Status DC Sodium Chloride (NS 1000 ml Inj) 1,000 ml @ 42 mls/hr [id number] IV Last administered on 08/14/16 12:44; Start 08/14/16 at 12:00; Stop 08/15/16 at 10:56 ; Status DC Fentanyl Citrate (fentaNYL INJ) 250 mcg STK-MED ONCE .ROUTE Last administered on 08/14/16 15:36; Start 08/14/16 at 15:36; Stop 08/14/16 at 15:37; Status DC Iohexol (Omnipaque 350 Inj) 30 ml STK-MED ONCE G-TUBE Last administered on 08/14 15:45; Start 08/14/16 at 15:52; Stop 08/14/16 at 15:53; Status DC Diltiazem HCl (Cardizem) 30 mg QID PEG Last administered on 10/30/16 10:30; Start 08/16/16 at 13:00 Polyethylene Glycol (Miralax) 17 gm ONCE ONCE PEG Last administered on 11:32; Start 08/17/16 at 12:00; Stop 08/17/16 at 12:01; Status DC Amoxicillin 500 mg 500 mg Q8HR PO Last administered on 10/30/16 05:33; Start 08/22/16 at 22:00 Cefepime HCl/ Sodium Chloride (Maxipime Inj/NS Inj) 100 ml @ 200 mls/hr Q8H IV Last administered on 09/03/16 10:46; Start 08/23/16 at 16:00; Stop 09/03/16 at 15:02; Status DC Metoprolol Tartrate (Lopressor) 75 mg BID PO Last administered on 09/13/16 08: 42; Start 08/23/16 at 21:00; Stop 09/13/16 at 13:09; Status DC Docusate Sodium (Colace Liq) 100 mg BID PO Last administered on 10/30/16 10:29 ; Start 08/30/16 at 21:00 Sennosides (Senokot) 17.2 mg DAILY PO Last administered on 09/25/16 08:36; Start 08/30/16 at 14:00; Stop 09/25/16 at 16:09; Status DC Lactulose (Lactulose Liq) 30 ml DAILY PO Last administered on 10/30/16 10:29; Start 09/02/16 at 15:30 Artificial Tears (Tears Naturale Opth Soln) 1 drop BID EACH EYE Last administered on 10/30/16 10:43; Start 09/05/16 at 21:00 Midazolam HCl (Versed Inj) 2 mg STK-MED ONCE .ROUTE Last administered on 11:37; Start 09/09/16 at 11:37; Stop 09/09/16 at 11:38; Status DC Fentanyl Citrate (fentaNYL INJ) 100 mcg STK-MED ONCE .ROUTE Last administered on 09/09/16 11:38; Start 09/09/16 at 11:38; Stop 09/09/16 at 11:39; Status DC Iohexol (Omnipaque 350 Inj) 20 ml STK-MED ONCE G-TUBE Last administered on 09/09 11:50; Start 09/09/16 at 11:50; Stop 09/09/16 at 12:15; Status DC Metoprolol Tartrate (Lopressor) 50 mg BID PO Last administered on 10/30/16 10: 30; Start 09/13/16 at 21:00 Acetaminophen/ Hydrocodone Bitart ([place] 5-325 Mg) 1 tab Q6H PEG ; Start at 11:00; Stop 09/17/16 at 14:25; Status DC Acetaminophen/ Hydrocodone Bitart ([place] 5-325 Mg) 1 tab DAILY@1600 PO ; Start 09/17/16 at 16:00; Stop 09/17/16 at 16:00; Status DC Morphine Sulfate (Morphine Inj) 1 mg Q24H PRN IV PUSH dressing change 30 min before Last administered on 10/22/16 02:00; Start 09/17/16 at 14:30 Acetaminophen/ Hydrocodone Bitart ([place] 5-325 Mg) 1 tab DAILY@0000 PO Last administered on 09/17/16 23:43; Start 09/18/16 at 00:00; Stop 09/20/16 at 12:46; Status DC Acetaminophen/ Hydrocodone Bitart ([place] 5-325 Mg) 1 tab Q8H PO Last administered on 10/13/16 13:38; Start 09/20/16 at 13:00; Stop 10/13/16 at 18:29 ; Status DC Ketoconazole (Nizoral 2% Cream) 1 applic Q12HR TOPICAL Last administered on 20:52; Start 09/24/16 at 21:00 Sennosides (Senna Liq) 8.8 mg DAILY@1600 PO Last administered on 10/29/16 16: 41; Start 09/25/16 at 17:00 Sodium Biphosphate/ Sodium Phosphate (Fleets Enema (Adult)) 133 ml UNSCH PRN MT CONSTIPATION; Start 09/25/16 at 16:00 Bisacodyl (Dulcolax Supp) 10 mg DAILY PRN RECTAL CONSTIPATION Last administered on 10/20/16 12:53; Start 09/26/16 at 15:30 Bisacodyl (Dulcolax Supp) 10 mg ONCE ONCE RECTAL Last administered on 16:10; Start 09/26/16 at 15:30; Stop 09/26/16 at 15:31; Status DC Cyclobenzaprine HCl (Flexeril) 5 mg Q8H PO Last administered on 10/13/16 13:37 ; Start 10/13/16 at 12:15; Stop 10/13/16 at 18:27; Status DC Magnesium Hydroxide (Milk Of Magnesia Liq) 30 ml DAILY PRN PO constipation Last administered on 10/20/16 12:54; Start 10/13/16 at 14:30 Acetaminophen/ Hydrocodone Bitart ([place] 5-325 Mg) 1 tab Q6H PRN PO PAIN SCALE 1 TO 10; Start 10/13/16 at 18:30; Stop 10/13/16 at 18:30; Status DC Acetaminophen/ Hydrocodone Bitart ([place] 5-325 Mg) 1 tab Q6H PRN PO PAIN SCALE 1 TO 10 Last administered on 10/29/16 13:31; Start 10/13/16 at 18:45 Cyclobenzaprine HCl (Flexeril) 5 mg HS PRN PO muscle relaxant Last administered on 10/22/16 21:17; Start 10/14/16 at 14:15 Fentanyl Citrate (fentaNYL INJ) 100 mcg STK-MED ONCE .ROUTE ; Start 10/23/16 at 16:51; Stop 10/23/16 at 16:52; Status DC Glycerin (Glycerin Adult Supp) 2 gm ONCE ONCE RECTAL Last administered on 15:29; Start 10/26/16 at 15:00; Stop 10/26/16 at 15:01; Status DC Nitrofurantoin Macrocrystals (Macrobid) 100 mg BIDPC PO Last administered on 09:36; Start 10/26/16 at 15:00; Stop 10/29/16 at 14:59; Status DC Date of Insertion: Oct 12, 2016 A/P Assessment and Plan A/P 60-year-old male with: CVA Paraplegia 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 Keppra continued (for seizures) Supportive Care alf care needed for chronic and profound neurologic deficits. Recovery is not expected to occur. Medicaid with SSI pending. Recent Fever- now has resolved Could be from UTI or Decubitus ulcer Continue Nitrofurantoin till the end of the course of treatment. Constipation Resolved Follow for recurrence Clogged PEG tube Has occured on 10/14 and 10/23 Follow for recurrence Continue Flushes GI if replacement needed Chronic respiratory failure Related to CVA Continue trach management PRN Levsin pulmonary following. 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 Frequent turns Colostomy declined by family (inability to divert feces in this chronic setting increases risks with ulcer and for recurrence of ulcers) Chronic Arevalo Follow for UTIs Hx of Gastric Ulcer Follow clinically PPI Monitor H/H periodically. FEN: Continue Nepro tube feeds. Appreciate dietary recommendations. Continue free water flushes. Supplement potassium. DVT prophylaxis: SCDs. Discharge Planning dc planning to SNF-no funding- SSI pending. Medardo Au MD Oct 30, 2016 10:56
[2016-10-30] MEDS: ACETAMINOPHEN/HYDROcodone 325 MG/5 MG TAB PO PRN (13:40)
[2016-10-30] MEDS: SENNOSIDES SYRUP 8.8 MG/5 ML CUP PO SCH (16:28)
--- NOTE | 2016-10-30 16:28 | HHI.PR ---
Subjective Remarks opens eyes on o2 , o2 SAT 96 on T PIECE Objective Vital Signs Date Time Temp Pulse Resp B/P Pulse Ox O2 Delivery O2 Flow Rate FiO2 10/30/16 12:21 99 T-piece 6.00 28 10/30/16 12:00 97.0 100 20 140/83 99 10/30/16 08:15 T-Piece 5.00 28 10/30/16 08:00 95.7 99 20 113/74 99 10/30/16 04:36 90 10/30/16 04:00 98.2 88 20 118/74 98 10/30/16 00:00 98.2 92 20 127/73 99 10/29/16 22:36 100 T-piece 28 10/29/16 20:00 97.4 94 22 118/71 100 10/29/16 18:00 89 16 109/73 100 I/O 10/29/16 10/29/16 10/29/16 10/30/16 10/30/16 10/30/16 07:00 15:00 23:00 07:00 15:00 23:00 Intake Total 390 ml 771 ml 527 ml 392 ml Output Total 900 ml 375 ml 350 ml Balance 390 ml -129 ml 152 ml 42 ml IV Total 0 ml Tube Feeding 390 ml 371 ml 527 ml 392 ml Other 400 ml Output Urine Total 900 ml 375 ml 350 ml Bladder Scan Volume Amount 392 ml 392 ml # Bowel Movements 0 Procedures 01/02/16 PEG placement 01/02/16 tracheostomy 07/22/2016 Wide excision of sacral skin wound, biopsy of the cavity lining and debridement. PEG tube replacement 07/29/16 Objective Remarks GENERAL: SKIN: Warm and dry. HEAD: Atraumatic. Normocephalic. EYES: Pupils equal and round. No scleral icterus. No injection or drainage. ENT: No nasal bleeding or discharge. Mucous membranes pink and moist. NECK: Trachea midline. No JVD. TRACH. [place] CARDIOVASCULAR: Regular rate and rhythm. RESPIRATORY: No accessory muscle use. Clear to auscultation. Breath sounds equal bilaterally. GASTROINTESTINAL: Abdomen soft, non-tender, nondistended. Hepatic and splenic margins not palpable. MUSCULOSKELETAL: Extremities without clubbing, cyanosis, or edema. No obvious deformities. NEUROLOGICAL: Awake and alert. No obvious cranial nerve deficits. Motor grossly within normal limits. Five out of 5 muscle strength in the arms and legs. Normal speech. PSYCHIATRIC: Appropriate mood and affect; insight and judgment normal. Assessment and Plan Assessment and Plan impression respiratory failure CVA S/P TRACHEOSTOMY PLAN O2 NEEDED PULM. TOILET Brandon Taylor MD Oct 30, 2016 16:28
[2016-10-30] MEDS: PARoxetine HCL SUSP 20 MG/10 ML UDC PEG SCH (18:54)
[2016-10-30] MEDS: INSULIN DETEMIR 100 UNITS/ML VIAL SQ SCH (21:00)
[2016-10-31] VITALS (10 sets, daily range): BP systolic 99–151; BP diastolic 63–84; PULSE 79–98; RESP 18–20; TEMP 96.8–99.5; O2SAT 98–100
[2016-10-31] MEDS: FREE WATER TUBE SCH ×7 (04:00→23:54)
[2016-10-31] MEDS: ACETIC ACID 0.25% SOLN 1000 ML IRR BTL IRRIGATION SCH ×3 (05:01→21:35)
[2016-10-31] MEDS: HEPARIN SODIUM - SQ 10,000 UNITS/ML VIAL SQ SCH ×3 (05:01→21:35)
[2016-10-31] MEDS: AMOXICILLIN (TRIHYDRATE) 500 MG CAP PO SCH ×3 (05:01→21:35)
[2016-10-31] MEDS: INSULIN ASPART SUPPLEMENTAL SCALE SQ SCH (06:25)
[2016-10-31] MEDS: POTASSIUM CHLORIDE 25 MEQ EFFERVESCENT TAB TUBE SCH (08:47)
[2016-10-31] MEDS: DILTIAZEM HCL 30 MG TAB PEG SCH ×4 (08:47→21:35)
[2016-10-31] MEDS: DOCUSATE SODIUM 100 MG/10 ML UDC PO SCH ×2 (08:48→21:35)
[2016-10-31] MEDS: ASPIRIN 325 MG TAB TUBE SCH (08:48)
[2016-10-31] MEDS: METOPROLOL TARTRATE 50 MG TAB PO SCH ×2 (08:48→21:35)
[2016-10-31] MEDS: LACTULOSE SYRUP 20 GM/30 ML CUP PO SCH (08:48)
[2016-10-31] MEDS: levETIRAcetam 500 MG/5 ML UDC TUBE SCH ×2 (08:48→21:35)
[2016-10-31] MEDS: NYSTATIN 100,000 U/GM PWD 15 GM BTL TOPICAL SCH ×2 (08:49→21:35)
[2016-10-31] MEDS: SODIUM CHLORIDE 0.65% NASAL SPRAY 45 ML BTL NASAL SCH ×2 (08:49→21:35)
[2016-10-31] MEDS: ARTIFICIAL TEARS OPTH SOLN 15 ML BTL EACH EYE SCH ×2 (08:49→21:35)
[2016-10-31] MEDS: BACITRACIN TOP OINT 15 GM TUBE TOP SCH ×2 (08:50→21:35)
[2016-10-31] MEDS: KETOCONAZOLE 2% CREAM 15 GM TOPICAL SCH ×2 (08:50→21:35)
--- NOTE | 2016-10-31 11:02 | HHI.PR ---
Subjective Remarks in no distress. no fever. clinically no change. Objective Vitals Vital Signs Date Time Temp Pulse Resp B/P Pulse Ox O2 Delivery O2 Flow Rate FiO2 10/31/16 09:11 98.0 98 20 144/84 100 10/31/16 04:00 97.7 80 20 130/82 100 10/31/16 03:02 100 T-Piece 6.00 28 10/31/16 00:43 85 10/31/16 00:00 99.5 86 20 100/74 98 10/30/16 20:00 98.3 86 18 109/73 96 10/30/16 18:51 86 111/71 10/30/16 18:12 99 T-piece 6.00 28 10/30/16 16:00 99 T-Piece 6.00 28 10/30/16 16:00 96.6 85 20 107/68 100 10/30/16 13:30 67 102/57 100 10/30/16 12:21 99 T-piece 6.00 28 10/30/16 12:00 97.0 100 20 140/83 99 I/O 10/30/16 10/30/16 10/30/16 10/31/16 10/31/16 10/31/16 07:00 15:00 23:00 07:00 15:00 23:00 Intake Total 392 ml 878 ml Output Total 350 ml 350 ml 400 ml Balance 42 ml 878 ml -350 ml -400 ml IV Total 0 ml Tube Feeding 392 ml 478 ml Other 400 ml Output Urine Total 350 ml 350 ml 400 ml Bladder Scan Volume Amount 392 ml # Bowel Movements 0 1 1 Imaging Last Impressions Tube Change 10/23/16 0000 Signed Impressions: Service Date/Time: Sunday, October 23, 2016 16:34 - CONCLUSION: Uncomplicated gastrojejunostomy tube exchange as above. Existing tube was patent with some luminal narrowing. The balloon port was damaged and leaking, however. Bobby Gray MD Chest X-Ray 10/18/16 0000 Signed Impressions: Service Date/Time: Tuesday, October 18, 2016 19:17 - CONCLUSION: 1. Minimal right perihilar streakiness consistent with probable atelectasis. 2. Elevation of the right hemidiaphragm. 3. Tracheostomy tube in good position above the geno. Eduardo Valenzuela MD Abdomen X-Ray 08/31/16 0000 Signed Impressions: Service Date/Time: Wednesday, August 31, 2016 16:36 - CONCLUSION: 1. No acute findings. Mild constipation. Durga Dotson MD Abdomen/Pelvis CT 04/12/16 0000 Signed Impressions: Service Date/Time: Tuesday, April 12, 2016 20:52 - CONCLUSION: 1. 6.4 cm necrotic mass or abscess in the soft tissues posteriorly just below the sacrum associated with some bony destructive change of the lower most sacrum and coccyx with inflammatory changes extending into the ischiorectal fossa and into the presacral retroperitoneum predominantly on the left side. There is associated fairly marked mural thickening of the anal verge and rectum. 2. There is gastrostomy and Arevalo catheter present. Stable abdominal aortic aneurysm. Durga Dotson MD Head Magnetic Resonance Angiography 03/05/16 0000 Signed Impressions: Service Date/Time: Saturday, March 05, 2016 09:26 - CONCLUSION: Persistent high-grade subtotal occlusive stenotic lesions in the distal right vertebral artery and proximal basilar artery with significant improvement in flow and recanalization following initial presentation of thrombosis. Stable interstitial circulation without significant stenosis. 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 There is decreasing restricted diffusion and increasing loss of volume characteristic of a subacute to chronic infarct. No evidence of acute infarct, acute hemorrhage mass or edema. Ernesto Kulkarni MD Head CT 01/16/16 0000 Signed Impressions: Service Date/Time: Saturday, January 16, 2016 10:51 - CONCLUSION: No extensive low density in the brainstem colin more prominent in the right the left extending into the right middle cerebellar peduncle consistent with brainstem infarct nonhemorrhagic acute Wellington West MD Neck Magnetic Resonance Angiography 12/22/15 1445 Signed Impressions: Service Date/Time: Tuesday, December 22, 2015 09:22 - CONCLUSION: Variant origin of the left vertebral artery from the aortic arch. No evidence of carotid stenosis. Glen Zamora MD Head/Brain Mag Res Venography 12/22/15 0000 Signed Impressions: Service Date/Time: Tuesday, December 22, 2015 09:22 - CONCLUSION: Normal MRV. Jonel Jones Jr., MD Objective Remarks GENERAL: on Trach- in no apparent distress. CARDIOVASCULAR: Regular rate and regular rhythm without murmurs, gallops, or rubs. RESPIRATORY: Clear to auscultation. Breath sounds equal bilaterally. No wheezes , rales, or rhonchi. GASTROINTESTINAL: Abdomen soft, non-tender,distended. hypoactive bowel sounds-PEG in place MUSCULOSKELETAL: Extremities without clubbing, cyanosis, or edema. NEURO: awake Procedures 01/02/16 PEG placement 01/02/16 tracheostomy 07/22/2016 Wide excision of sacral skin wound, biopsy of the cavity lining and debridement. PEG tube replacement 07/29/16 VAC changes- M-W-F /- GJ tube replacement Medications and IVs Current Medications IV Flush (NS Flush) 2 ml UNSCH PRN IVF FLUSH AFTER USING IV ACCESS Last administered on 09/28/16t 21:18; Start 12/21/15 at 06:00 Ondansetron HCl (Zofran Inj) 4 mg STK-MED ONCE .ROUTE ; Start 12/21/15 at 06:22; Stop 12/21/15 at 06:23; Status DC Ondansetron HCl (Zofran Inj) 4 mg ONCE ONCE IV PUSH Last administered on at 06:43; Start 12/21/15 at 06:30; Stop 12/21/15 at 06:31; Status DC Diltiazem HCl 20 mg 20 mg ONCE ONCE IV Last administered on 12/21/15at 06:42; Start 12/21/15 at 06:30; Stop 12/21/15 at 06:31; Status DC Diltiazem HCl/ Sodium Chloride (Cardizem Inj/NS Inj) 125 ml @ 0 mls/hr TITRATE IV Last administered on 12/21/15at 06:47; Start 12/21/15 at 06:30; Stop 12/21/15 at 13:00; Status DC Acetaminophen (Tylenol) 650 mg ONCE ONCE PO ; Start 12/21/15 at 06:45; Stop 12/20 at 06:46; Status DC Lorazepam (Ativan Inj) 1 mg ONCE ONCE IV PUSH Last administered on 12/21/15at 07 :22; Start 6/2/16 at 07:15; Stop 12/21/15 at 07:16; Status DC Etomidate (Amidate Inj) 40 mg STK-MED ONCE .ROUTE Last administered on at 08:17; Start 12/21/15 at 07:37; Stop 12/21/15 at 07:38; Status DC Succinylcholine Chloride 200 mg 200 mg STK-MED ONCE .ROUTE Last administered on 12/21/15at 08:18; Start 12/21/15 at 07:37; Stop 12/21/15 at 07:38; Status DC Propofol (Diprivan 1000 Mg/100ml Inj) 100 ml @ As Directed STK-MED ONCE .ROUTE Last administered on 12/21/15at 08:19; Start 12/21/15 at 07:46; Stop 12/21/15 at 07:47; Status DC Propofol (Diprivan 1000 Mg/100ml Inj) search Sets for Drip. NOW PRN IV SEDATION Last administered on 12/22/15at 06:25; Start 12/21/15 at 08:30; Stop 12/28 at 15:43; Status DC Gadodiamide (Omniscan Pf Inj) 18 ml STK-MED ONCE IV Last administered on at 10:11; Start 12/21/15 at 10:11; Stop 12/21/15 at 10:12; Status DC Pantoprazole Sodium (Protonix Inj) 40 mg DAILY IV Last administered on at 07:39; Start 12/21/15 at 13:00; Stop 01/03/16 at 10:10; Status DC Albuterol/ Ipratropium (Duoneb Neb) 1 ampule Q6HR NEB INH Last administered on 12/25/15at 07:51; Start 12/21/15 at 13:00; Stop 12/25/15 at 13:00; Status DC Miscellaneous Information 1 [id number] Last administered on 12/21/15at 13:00; Start 12/21/15 at 13:00; Stop 01/12/16 at 11:47; Status DC Chlorhexidine Gluconate (Chlorhexidine 2% Cloth) 3 pack Taper DAILY@04 TOP Last administered on 01/11/16at 04:10; Start 12/22/15 at 04:00; Stop 01/12/16 at 11:47; Status DC Chlorhexidine Gluconate 3 pack 3 pack UNSCH PRN TOP HYGIENIC CARE; Start at 13:00; Stop 01/12/16 at 11:47; Status DC Sodium Chloride (NS 1000 ml Inj) 1,000 ml @ 75 mls/hr [id number] IV Last administered on 12/22/15at 17:00; Start 12/21/15 at 13:00; Stop 12/22/15 at 19:01; Status DC Dextrose (D50w (Vial) Inj) 25 ml UNSCH PRN IV PUSH HYPOGLYCEMIA-SEE COMMENTS; Start 12/21/15 at 13:00; Stop 04/19/16 at 17:19; Status DC Glucagon (Glucagon Inj) 1 mg UNSCH PRN OTHER HYPOGLYCEMIA-SEE COMMENTS; Start 12/21/15 at 13:00; Stop 04/19/16 at 17:19; Status DC Insulin Human Regular (NovoLIN R SUPPLEMENTAL SCALE) 1 Q6H SQ Last administered on 01/04/16at 06:31; Start 12/21/15 at 13:00; Stop 01/04/16 at 10:05 ; Status DC Levetriacetam (Keppra) 500 mg Q12HR PO Last administered on 12/27/15at 09:00; Start 12/21/15 at 13:45; Stop 12/27/15 at 09:44; Status DC Heparin Sodium (Porcine) (Heparin Inj) 5,000 units BID SQ Last administered on 12/22/15at 20:52; Start 12/21/15 at 21:00; Stop 12/23/15 at 08:32; Status DC Warfarin Sodium (Coumadin) 7.5 mg ONCE ONCE PO Last administered on 12/21/15at 21:43; Start 12/21/15 at 21:00; Stop 12/21/15 at 21:01; Status DC Warfarin Sodium (Coumadin) 5 mg DAILY@16 PO Last administered on 12/23/15at 16:00 ; Start 12/22/15 at 16:00; Stop 12/26/15 at 09:29; Status DC Patient Medication Teaching (Coumadin Booklet) 1 ONCE ONCE XX Last administered on 12/21/15at 20:15; Start 12/21/15 at 20:15; Stop 12/21/15 at 20:16; Status DC Chlorhexidine Gluconate (Peridex 0.12% Liq) 15 ml BID@08,20 MT Last administered on 01/12/16at 08:00; Start 12/22/15 at 20:00; Stop 01/12/16 at 11:47 ; Status DC Gadodiamide 20 ml 20 ml STK-MED ONCE IV Last administered on 12/22/15at 09:55; Start 12/22/15 at 09:55; Stop 12/22/15 at 09:56; Status DC Pharmacy Profile Note ml @ 0 mls/hr UNSCH OTHER ; Start 12/22/15 at 11:00; Stop 12/22/15 at 19:43; Status DC Sodium Chloride 1,000 ml @ 50 mls/hr Q20H IV Last administered on 12/24/15at 20: 02; Start 12/22/15 at 18:44; Stop 12/25/15 at 11:52; Status DC Pharmacy Profile Note (Coumadin Consult Pharmacy) 0 ml @ 0 mls/hr UNSCH OTHER ; Start 12/22/15 at 19:45; Stop 01/04/16 at 12:25; Status DC Acetaminophen 650 mg 650 mg Q6H PRN PO TEMP > 100 Last administered on at 13:24; Start 12/23/15 at 02:45; Stop 12/30/15 at 15:04; Status DC Potassium Chloride 100 ml @ 50 mls/hr Q2H PRN IV For Potassium 2.8 - 3.2 mEq/L ; Start 12/23/15 at 08:30; Stop 01/09/16 at 11:14; Status DC Potassium Chloride (KCl 20 Meq Premix Inj) 100 ml @ 50 mls/hr Q2H PRN IV For Potassium 2.8 - 3.2 mEq/L; Start 12/23/15 at 08:30; Stop 01/09/16 at 11:14; Status DC Potassium Chloride 40 meq 40 meq UNSCH PRN PO/TUBE For Potassium 3.3 - 3.5 mEq/ L; Start 12/23/15 at 08:30; Stop 01/09/16 at 11:14; Status DC Potassium Chloride 100 ml @ 25 mls/hr UNSCH PRN IV For Potassium 3.3 - 3.5 mEq /L; Start 12/23/15 at 08:30; Stop 01/09/16 at 11:14; Status DC Potassium Chloride 100 ml @ 50 mls/hr Q2H PRN IV For Potassium 3.3 - 3.5 mEq/L ; Start 12/23/15 at 08:30; Stop 01/09/16 at 11:14; Status DC Magnesium Sulfate/ Sodium Chloride (Magnesium Sulfate Inj/NS Inj) 100 ml @ 50 mls/hr UNSCH PRN IV For Magnesium 0.9 - 1.1 mg/dL; Start 12/23/15 at 08:30; Stop 01/09/16 at 11:14; Status DC Magnesium Oxide 800 mg 800 mg UNSCH PRN PO For Magnesium 1.2 - 1.6 mg/dL; Start 12/23/15 at 08:30; Stop 01/09/16 at 11:14; Status DC Magnesium Sulfate/ Sodium Chloride (Magnesium Sulfate Inj/NS Inj) 100 ml @ 50 mls/hr UNSCH PRN IV For Magnesium 1.2 - 1.6 mg/dL; Start 12/23/15 at 08:30; Stop 01/09/16 at 11:14; Status DC Potassium Phosphate 2000 mg 2,000 mg Q4H PRN PO For Phosphorus < 2.5 mg/dL; Start 12/23/15 at 08:30; Stop 01/09/16 at 11:14; Status DC Sodium Phosphate/ Sodium Chloride (Sodium Phosphate Inj/NS 250 ml Inj) 250 ml @ 42 mls/hr UNSCH PRN IV For Phosphorus < 2.5 mg/dL; Start 12/23/15 at 08:30; Stop 01/09/16 at 11:14; Status DC Potassium Chloride (KCl 40 Meq/30 ml Liq) 40 meq UNSCH PRN PO/TUBE SEE LABEL COMMENTS; Start 12/23/15 at 08:30; Stop 01/09/16 at 11:14; Status DC Potassium Phosphate 2000 mg 2,000 mg UNSCH PRN PO/TUBE SEE LABEL COMMENTS; Start 12/23/15 at 08:30; Stop 01/09/16 at 11:14; Status DC Potassium Phosphate 30 mmol/ Sodium Chloride 260 ml @ 42 mls/hr UNSCH PRN IV SEE LABEL COMMENTS; Start 12/23/15 at 08:30; Stop 01/09/16 at 11:14; Status DC Sodium Chloride 1,000 ml @ 75 mls/hr [id number] IV ; Start 12/23/15 at 08:30; Stop 12/23/15 at 08:30; Status DC Piperacillin Sod/ Tazobactam Sod 50 ml @ 100 mls/hr Q6H IV Last administered on 12/30/15at 10:02; Start 12/23/15 at 10:00; Stop 12/30/15 at 14:50; Status DC Vancomycin HCl/ Sodium Chloride (Vancomycin Inj/ NS 250 ml Inj) 250 ml @ 250 mls/hr Q12H IV Last administered on 12/29/15at 09:01; Start 12/24/15 at 08:45; Stop 12/29/15 at 15:33; Status DC Warfarin Sodium (Coumadin) 4 mg DAILY@16 PO Last administered on 12/28/15at 16:00 ; Start 12/26/15 at 16:00; Stop 01/04/16 at 12:25; Status DC Levetriacetam (Keppra Liq) 500 mg Q12HR TUBE Last administered on 10/31/16t 08 :48; Start 12/27/15 at 21:00 Docusate Sodium (Colace Liq) 100 mg Q12HR TUBE Last administered on 01/15/16at 09:01; Start 12/27/15 at 21:00; Stop 04/16/16 at 08:50; Status DC Sennosides (Senna Liq) 8.8 mg DAILY TUBE Last administered on 01/15/16at 09:01 ; Start 12/27/15 at 17:00; Stop 01/15/16 at 20:37; Status DC Bisacodyl (Dulcolax Supp) 10 mg ONCE ONCE RECTAL ; Start 12/27/15 at 16:15; Stop 12/27/15 at 16:15; Status DC Albuterol/ Ipratropium (Duoneb Neb) 1 ampule Q4HR NEB PRN NEB RESPIRATORY DISTRESS Last administered on 12/29/15at 12:17; Start 12/27/15 at 22:00; Stop at 08:16; Status DC Bisacodyl (Dulcolax Supp) 10 mg ONCE ONCE RECTAL ; Start 12/28/15 at 12:00; Stop 12/28/15 at 12:01; Status DC Sodium Chloride (Sodium Chloride) 1 gm BID TUBE Last administered on 12/29/15at 09:02; Start 12/28/15 at 21:00; Stop 12/29/15 at 15:43; Status DC Lactulose (Lactulose Liq) 30 ml DAILY TUBE Last administered on 12/29/15at 09:02 ; Start 12/28/15 at 20:30; Stop 12/29/15 at 15:43; Status DC Levofloxacin (Levaquin) 750 mg DAILY@16 TUBE ; Start 12/29/15 at 16:00; Stop 05/05 at 16:00; Status DC Sodium Chloride (Sodium Chloride) 1 gm DAILY TUBE Last administered on at 07:29; Start 12/30/15 at 09:00; Stop 12/31/15 at 14:08; Status DC Water 200 ml 200 ml Q6HR G-TUBE Last administered on 12/31/15at 04:19; Start 06/05 at 14:45; Stop 12/31/15 at 07:31; Status DC Ceftriaxone Sodium/Sodium Chloride (Rocephin Inj/NS Inj) 100 ml @ 200 mls/hr Q12H IV Last administered on 01/03/16at 02:47; Start 12/30/15 at 15:00; Stop at 10:09; Status DC Acetaminophen (Tylenol 650 Mg/ 20 ml Liq) 650 mg Q6H PRN TUBE TEMP >100.4 Last administered on 10/25/16t 15:13; Start 12/30/15 at 15:15 Lactobacillus Acidophilus (Lactinex Pkt) 1 gm BID TUBE Last administered on at 09:00; Start 12/30/15 at 21:00; Stop 02/10/16 at 14:30; Status DC Enoxaparin Sodium (Lovenox Inj) 90 mg Q12H SQ Last administered on 01/01/16at 21 :57; Start 12/31/15 at 08:00; Stop 01/03/16 at 10:33; Status DC Water (Free Water) 100 ml Q12H G-TUBE ; Start 12/31/15 at 18:00; Stop 12/31/15 at 18:00; Status DC Acetaminophen/ Hydrocodone Bitart ([place] 5-325 Mg) 1 tab Q6H PRN PO PAIN Last administered on 05/26/16at 20:46; Start 12/31/15 at 15:00; Stop 06/02/16 at 21: 44; Status DC Fentanyl Citrate (Sublimaze Inj) 25 mcg Q1H PRN IV PUSH BREAKTHROUGH PAIN; Start 12/31/15 at 15:00; Stop 03/06/16 at 10:03; Status DC Water (Free Water) 200 ml Q8H G-TUBE Last administered on 01/01/16at 17:55; Start 12/31/15 at 18:00; Stop 01/02/16 at 09:56; Status DC Sodium Chloride (Sodium Chloride) 1 gm BID TUBE Last administered on 01/03/16at 07:39; Start 12/31/15 at 21:00; Stop 01/03/16 at 09:08; Status DC Miscellaneous Information Hold Anticoagulation after midni... ONCE ONCE OTHER ; Start 01/01/16 at 10:15; Stop 01/01/16 at 10:29; Status DC Sodium Chloride (NS 1000 ml Inj) 1,000 ml @ 50 mls/hr Q20H IV Last administered on 01/02/16at 12:26; Start 01/01/16 at 18:00; Stop 01/03/16 at 10:07 ; Status DC Midazolam HCl (Versed Inj) 5 mg STK-MED ONCE .ROUTE ; Start 01/02/16 at 12:47; Stop 01/02/16 at 12:48; Status DC Vecuronium [place] (Norcuron 10 Mg Inj) 10 mg STK-MED ONCE .ROUTE ; Start at 12:47; Stop 01/02/16 at 12:48; Status DC Fentanyl Citrate (Sublimaze Inj) 250 mcg ONCE ONCE IV PUSH Last administered on 01/02/16at 15:00; Start 01/02/16 at 15:00; Stop 01/02/16 at 15:01; Status DC Midazolam HCl (Versed Inj) 10 mg ONCE ONCE IV PUSH Last administered on at 15:00; Start 01/02/16 at 15:00; Stop 01/02/16 at 15:01; Status DC Rocuronium [place] (Zemuron Inj) 100 mg BOLUS ONCE IV Last administered on at 15:00; Start 01/02/16 at 15:00; Stop 01/02/16 at 15:01; Status DC Ketamine HCl (Ketalar Inj) 500 mg STK-MED ONCE .ROUTE ; Start 01/02/16 at 14:30 ; Stop 01/02/16 at 14:31; Status DC Propofol 230 mg 230 mg STK-MED ONCE IV ; Start 01/02/16 at 16:51; Stop 01/02/16 at 16:52; Status DC Sodium Chloride (NS 1000 ml Inj) 1,000 ml @ 0 mls/hr Q0M IV ; Start 01/03/16 at 10:15; Stop 01/17/16 at 17:30; Status DC Ranitidine HCl (Zantac Liq) 150 mg Q12HR PO Last administered on 01/17/16at 07: 39; Start 01/04/16 at 09:00; Stop 01/17/16 at 15:23; Status DC Enoxaparin Sodium 90 mg 90 mg Q12HR SQ Last administered on 01/11/16at 10:01; Start 01/04/16 at 09:00; Stop 01/11/16 at 12:35; Status DC Sodium Chloride (NS 500 ml Inj) 500 ml @ 0 mls/hr BOLUS ONCE IV Last administered on 01/03/16at 22:57; Start 01/03/16 at 23:00; Stop 01/03/16 at 23:01 ; Status DC Insulin Aspart (NovoLOG SUPPLEMENTAL SCALE) 1 Q6HR SQ Last administered on at 12:00; Start 01/04/16 at 12:00; Stop 03/24/16 at 13:58; Status DC Potassium Chloride (KCl 40 Meq/30 ml Liq) 40 meq Q4H NG Last administered on at 16:21; Start 01/04/16 at 13:00; Stop 01/04/16 at 17:01; Status DC Warfarin Sodium 5 mg 5 mg DAILY@1600 PO Last administered on 01/09/16at 17:21; Start 01/04/16 at 16:00; Stop 01/10/16 at 10:06; Status DC Pharmacy Profile Note (Coumadin Consult Pharmacy) 0 ml @ 0 mls/hr UNSCH XX ; Start 01/04/16 at 12:30; Stop 04/20/16 at 12:04; Status DC Insulin Detemir (Levemir Inj) 10 units Q12HR SQ Last administered on 01/05/16at 08:00; Start 01/04/16 at 21:00; Stop 01/05/16 at 08:42; Status DC Insulin Detemir (Levemir Inj) 5 units NOW ONCE SQ Last administered on at 13:28; Start 01/04/16 at 12:45; Stop 01/04/16 at 12:46; Status DC Albuterol/ Ipratropium (Duoneb Neb) 1 ampule Q4HR NEB PRN NEB dyspnea Last administered on 04/19/16at 02:24; Start 01/07/16 at 08:15; Stop 04/25/16 at 18:54 ; Status DC Warfarin Sodium (Coumadin) 7.5 mg ONCE ONCE PO Last administered on 01/07/16at 16:40; Start 01/07/16 at 16:00; Stop 01/07/16 at 16:01; Status DC Nystatin (Mycostatin Powder) 1 applic Q12HR TOPICAL Last administered on t 08:49; Start 01/08/16 at 21:00 Ipratropium [place] (Atrovent Neb) 0.5 mg TID NEB NEB Last administered on 02/20at 13:17; Start 01/08/16 at 20:00; Stop 02/21/16 at 17:52; Status DC Warfarin Sodium (Coumadin) 5 mg DAILY@1600 PO Last administered on 01/11/16at 14 :26; Start 01/11/16 at 16:00; Stop 01/12/16 at 09:45; Status DC Warfarin Sodium (Coumadin) 6 mg ONCE PO Last administered on 01/10/16at 17:10; Start 01/10/16 at 16:00; Stop 01/10/16 at 21:00; Status DC Metoprolol Tartrate (Lopressor) 50 mg Q12HR GT Last administered on 01/11/16at 10:02; Start 01/10/16 at 11:00; Stop 01/11/16 at 12:30; Status DC Metoprolol Tartrate (Lopressor) 50 mg TID GT Last administered on 01/14/16at 08: 24; Start 01/11/16 at 13:00; Stop 01/14/16 at 08:28; Status DC Insulin Detemir (Levemir Inj) 10 units HS SQ Last administered on 01/11/16at 22: 23; Start 01/11/16 at 21:00; Stop 01/12/16 at 11:47; Status DC Warfarin Sodium (Coumadin) 4 mg DAILY@16 PO ; Start 01/12/16 at 16:00; Stop at 16:00; Status DC Insulin Detemir (Levemir Inj) 20 units HS SQ Last administered on 01/13/16at 20: 26; Start 01/12/16 at 21:00; Stop 01/14/16 at 08:28; Status DC Warfarin Sodium (Coumadin) 2 mg DAILY@16 PO Last administered on 01/13/16at 17: 05; Start 01/12/16 at 16:00; Stop 01/14/16 at 11:23; Status DC Insulin Detemir (Levemir Inj) 22 units HS SQ Last administered on 01/14/16at 21: 37; Start 01/14/16 at 21:00; Stop 01/15/16 at 10:06; Status DC Metoprolol Tartrate (Lopressor) 75 mg TID GT Last administered on 03/10/16at 17: 43; Start 01/14/16 at 09:00; Stop 03/10/16 at 21:13; Status DC Miscellaneous (Pill Splitter) 1 ea UNSCH PRN OTHER SEE LABEL COMMENTS; Start at 08:30 Warfarin Sodium (Coumadin) 4 mg DAILY@1600 PO Last administered on 01/21/16at 16: 51; Start 01/14/16 at 16:00; Stop 01/23/16 at 09:29; Status DC Patient Medication Teaching (Coumadin Booklet) 1 ONCE ONCE XX ; Start 01/14/16 at 16:00; Stop 01/14/16 at 16:01; Status DC Insulin Detemir (Levemir Inj) 24 units HS SQ Last administered on 03/04/16at 21: 09; Start 01/15/16 at 21:00; Stop 03/05/16 at 11:17; Status DC Citalopram Hydrobromide (CeleXA) 20 mg DAILY PEG Last administered on at 08:01; Start 01/16/16 at 09:00; Stop 01/16/16 at 09:41; Status DC Sennosides (Senna Liq) 8.8 mg BID TUBE Last administered on 02/20/16at 08:32; Start 01/15/16 at 21:00; Stop 02/20/16 at 16:13; Status DC Gadodiamide 18 ml 18 ml STK-MED ONCE IV ; Start 01/16/16 at 20:40; Stop at 20:41; Status DC Sodium Chloride (NS 1000 ml Inj) 1,000 ml @ 125 mls/hr Q8H IV Last administered on 01/17/16at 15:11; Start 01/17/16 at 15:00; Stop 01/17/16 at 17:31 ; Status DC Ranitidine HCl 150 mg 150 mg Q24H PO Last administered on 07/28/16t 08:54; Start 01/18/16 at 09:00; Stop 07/30/16 at 10:05; Status DC Sodium Chloride 1,000 ml @ 75 mls/hr [id number] IV Last administered on at 05:22; Start 01/17/16 at 18:00; Stop 01/18/16 at 09:28; Status DC Sodium Chloride/ Sterile Water (Sodium Chloride 23.4% Inj/Sterile Water For Inj ) 1,009.625 ml @ 60 mls/hr [id number] IV Last administered on 01/21/16at 22:46; Start 01/18/16 at 11:00; Stop 01/22/16 at 10:09; Status DC Potassium Chloride (KCl) 40 meq ONCE ONCE PO ; Start 01/18/16 at 09:30; Stop at 09:31; Status DC Potassium Chloride (KCl 40 Meq/30 ml Liq) 40 meq ONCE ONCE TUBE Last administered on 01/18/16at 11:08; Start 01/18/16 at 11:00; Stop 01/18/16 at 11:01 ; Status DC Water (Free Water) 300 ml Q4HR TUBE Last administered on 01/19/16at 08:00; Start 01/18/16 at 12:00; Stop 01/19/16 at 10:43; Status DC Water (Free Water) 400 ml Q4HR TUBE Last administered on 04/16/16at 04:00; Start 01/19/16 at 12:00; Stop 04/16/16 at 09:09; Status DC Potassium Chloride (KCl 40 Meq/30 ml Liq) 40 meq ONCE ONCE NG Last administered on 01/19/16at 11:41; Start 01/19/16 at 11:00; Stop 01/19/16 at 11:01; Status DC Potassium Chloride 60 meq 60 meq ONCE ONCE PO/TUBE Last administered on at 13:30; Start 01/21/16 at 11:15; Stop 01/21/16 at 11:27; Status DC Sodium Chloride (1/2 NS 1000 ml Inj) 1,000 ml @ 30 mls/hr Q24H IV Last administered on 02/06/16at 11:26; Start 01/22/16 at 11:00; Stop 02/07/16 at 14:49 ; Status DC Warfarin Sodium (Coumadin) 3 mg DAILY@16 PO Last administered on 01/23/16at 17:19 ; Start 01/23/16 at 16:00; Stop 01/24/16 at 14:05; Status DC Warfarin Sodium (Coumadin) 3 mg DAILY@16 PO Last administered on 01/25/16at 15:59 ; Start 01/25/16 at 16:00; Stop 01/26/16 at 15:04; Status DC Warfarin Sodium (Coumadin) 4 mg ONCE@1600 ONCE PO Last administered on at 16:55; Start 01/24/16 at 16:00; Stop 01/24/16 at 16:01; Status DC Warfarin Sodium (Coumadin) 3 mg DAILY@16 PO ; Start 01/27/16 at 16:00; Stop at 16:00; Status DC Warfarin Sodium (Coumadin) 4 mg ONCE@1600 ONCE PO Last administered on at 16:52; Start 01/26/16 at 16:00; Stop 01/26/16 at 16:01; Status DC Potassium Chloride (KCl 40 Meq/30 ml Liq) 80 meq ONCE ONCE PO Last administered on 01/27/16at 07:45; Start 01/27/16 at 07:45; Stop 01/27/16 at 08:10; Status DC Warfarin Sodium (Coumadin) 4 mg DAILY@16 PO Last administered on 02/02/16at 17: 22; Start 01/27/16 at 16:00; Stop 02/03/16 at 11:37; Status DC Acetic Acid (Acetic Acid 0.25% Irr Btl) 10 ml Q8HR IRRIGATION Last administered on 02/05/16at 06:00; Start 01/28/16 at 22:00; Stop 02/05/16 at 15:51 ; Status DC Warfarin Sodium 3 mg 3 mg DAILY@1600 PO Last administered on 02/11/16at 17:34; Start 02/03/16 at 16:00; Stop 02/12/16 at 12:45; Status DC Ceftriaxone Sodium/Sodium Chloride (Rocephin Inj/NS Inj) 100 ml @ 200 mls/hr Q24H IV Last administered on 02/10/16at 05:23; Start 02/05/16 at 06:30; Stop at 14:32; Status DC Acetic Acid (Acetic Acid 0.25% Irr Btl) 10 ml Q8HR IRRIGATION ; Start 02/05/16 at 16:00; Status Cancel Acetic Acid (Acetic Acid 0.25% Irr Btl) 10 ml Q8HR IRRIGATION Last administered on 10/31/16t 05:01; Start 02/05/16 at 16:00 Lactobacillus Acidophilus (Lactinex) 1 tab Q12HR PO Last administered on at 08:25; Start 02/10/16 at 21:00; Stop 02/12/16 at 16:05; Status DC Warfarin Sodium (Coumadin) 4 mg DAILY@1600 PO Last administered on 02/14/16at 15 :56; Start 02/12/16 at 16:00; Stop 02/15/16 at 10:17; Status DC Paroxetine HCl (Paxil Liq) 20 mg DAILY PEG Last administered on 02/25/16at 07:33 ; Start 02/16/16 at 09:00; Stop 02/25/16 at 10:36; Status DC Warfarin Sodium (Coumadin) 3 mg DAILY@1600 PO Last administered on 02/19/16at 16: 42; Start 02/15/16 at 16:00; Stop 02/20/16 at 08:50; Status DC Warfarin Sodium (Coumadin) 4 mg DAILY@16 PO Last administered on 8/3/16at 15:54 ; Start 02/20/16 at 16:00; Stop 02/22/16 at 08:46; Status DC Sennosides (Senna Liq) 8.8 mg DAILY TUBE Last administered on 05/26/16at 08:14 ; Start 02/21/16 at 09:00; Stop 05/27/16 at 11:51; Status DC Albuterol Sulfate (Albuterol Neb) 2.5 mg QID NEB INH Last administered on at 19:51; Start 02/21/16 at 20:00; Stop 02/25/16 at 20:00; Status DC Acetylcysteine (Mucomyst 10% Neb) 1 ml QID NEB NEB Last administered on at 16:32; Start 02/21/16 at 20:00; Stop 02/23/16 at 16:01; Status DC Warfarin Sodium (Coumadin) 3 mg DAILY@16 PO Last administered on 02/22/16at 15:59 ; Start 02/22/16 at 16:00; Stop 02/23/16 at 08:56; Status DC Warfarin Sodium (Coumadin) 3 mg DAILY@16 PO Last administered on 02/28/16at 16: 17; Start 02/24/16 at 16:00; Stop 02/29/16 at 10:04; Status DC Warfarin Sodium (Coumadin) 2 mg ONCE PO Last administered on 02/23/16at 16:22; Start 02/23/16 at 16:00; Stop 02/23/16 at 21:00; Status DC Paroxetine HCl (Paxil Liq) 20 mg DAILY@1900 PEG Last administered on 03/08/16at 18:11; Start 02/26/16 at 19:00; Stop 03/09/16 at 11:31; Status DC Warfarin Sodium (Coumadin) 3 mg DAILY@16 PO Last administered on 03/06/16at 16: 22; Start 03/01/16 at 16:00; Stop 03/09/16 at 10:30; Status DC Warfarin Sodium (Coumadin) 1 mg ONCE PO Last administered on 02/29/16at 17:28; Start 02/29/16 at 16:00; Stop 02/29/16 at 21:00; Status DC Insulin Detemir (Levemir Inj) 27 units HS SQ Last administered on 03/05/16at 20: 25; Start 03/05/16 at 21:00; Stop 03/06/16 at 10:03; Status DC Patient Medication Teaching (Coumadin Booklet) 1 ONCE ONCE XX Last administered on 03/05/16at 16:00; Start 03/05/16 at 16:00; Stop 03/05/16 at 16:01 ; Status DC Insulin Detemir (Levemir Inj) 30 units HS SQ Last administered on 03/21/16at 22: 32; Start 03/06/16 at 21:00; Stop 03/22/16 at 14:48; Status DC Trimethoprim/ Sulfamethoxazole (Bactrim 800-160 Mg/20 ml Liq) 20 ml Q12HR PO Last administered on 03/14/16at 08:01; Start 03/07/16 at 11:15; Stop 03/14/16 at 11:14; Status DC Lorazepam (Ativan Inj) 0.5 mg Q4H PRN IV PUSH seizures or agitation; Start at 23:00 Metronidazole (Flagyl) 500 mg Q8H PO Last administered on 03/14/16at 15:51; Start 03/08/16 at 17:00; Stop 03/14/16 at 23:00; Status DC Warfarin Sodium (Coumadin) 2 mg DAILY@16 PO Last administered on 03/09/16at 17: 20; Start 03/09/16 at 16:00; Stop 03/10/16 at 10:33; Status DC Paroxetine HCl (Paxil) 20 mg DAILY@1900 PEG Last administered on 03/11/16at 17: 55; Start 03/09/16 at 19:00; Stop 03/12/16 at 08:31; Status DC Warfarin Sodium 3 mg 3 mg DAILY@16 PO Last administered on 04/12/16at 15:28; Start 03/10/16 at 16:00; Stop 04/12/16 at 16:39; Status DC Pharmacy Profile Note 0 ml @ 0 mls/hr UNSCH OTHER ; Start 03/10/16 at 14:15; Stop 03/18/16 at 11:33; Status DC Vancomycin HCl/ Sodium Chloride (Vancomycin Inj/ NS 500 ml Inj) 530 ml @ 265 mls/hr Q12H IV Last administered on 03/17/16at 16:26; Start 03/10/16 at 16:00; Stop 03/17/16 at 23:00; Status DC Miscellaneous Information SPECIFIC LAB TO BE ELISA... ONCE ONCE XX Last administered on 03/12/16at 04:45; Start 03/12/16 at 03:45; Stop 03/12/16 at 03:46 ; Status DC Metoprolol Tartrate (Lopressor) 75 mg Q8HR PO Last administered on 04/02/16at 13 :13; Start 03/10/16 at 22:00; Stop 04/02/16 at 17:31; Status DC Paroxetine HCl (Paxil Liq) 20 mg DAILY@1900 PEG Last administered on 10/30/16t 18:54; Start 03/12/16 at 19:00 Warfarin Sodium (Coumadin) 1 mg ONCE PO Last administered on 03/21/16at 16:24; Start 03/21/16 at 16:00; Stop 03/21/16 at 21:00; Status DC Warfarin Sodium (Coumadin) 1 mg ONCE PO Last administered on 03/22/16at 17:46; Start 03/22/16 at 16:00; Stop 03/22/16 at 21:00; Status DC Insulin Detemir (Levemir Inj) 32 units HS SQ Last administered on 03/22/16at 20: 18; Start 03/22/16 at 21:00; Stop 03/23/16 at 13:35; Status DC Diltiazem HCl (Cardizem Cd) 120 mg DAILY PO Last administered on 04/14/16at 07: 43; Start 03/22/16 at 16:00; Stop 04/14/16 at 14:39; Status DC Hyoscyamine Sulfate (Levsin Liq) 0.125 mg Q4H PRN PEG INCREASED SECRETIONS Last administered on 04/10/16at 08:05; Start 03/22/16 at 15:15; Stop 04/11/16 at 10:24; Status DC Warfarin Sodium (Coumadin) 2 mg ONCE ONCE PO Last administered on 03/23/16 17: 26; Start 03/23/16 at 16:00; Stop 03/23/16 at 16:01; Status DC Insulin Detemir (Levemir Inj) 34 units HS SQ Last administered on 03/23/16 20: 01; Start 03/23/16 at 21:00; Stop 03/24/16 at 13:53; Status DC Insulin Detemir (Levemir Inj) 35 units HS SQ Last administered on 10/30/16 21: 00; Start 03/24/16 at 21:00 Insulin Aspart (NovoLOG SUPPLEMENTAL SCALE) 1 ACHS SLIDING SCALE SQ Last administered on 04/16/16at 22:27; Start 03/24/16 at 16:00; Stop 04/19/16 at 17:19 ; Status DC Warfarin Sodium (Coumadin) 1 mg ONCE ONCE PO Last administered on 03/30/16at 16 :59; Start 03/30/16 at 16:00; Stop 03/30/16 at 16:01; Status DC Potassium Chloride (KCl 40 Meq/30 ml Liq) 40 meq ONCE ONCE NG Last administered on 03/31/16at 21:28; Start 03/31/16 at 18:30; Stop 03/31/16 at 18:31 ; Status DC Potassium Bicarb/ Potassium Chloride (K-Lyte Cl Eff) 25 meq ONCE ONCE PEG Last administered on 04/02/16at 12:01; Start 04/02/16 at 13:00; Stop 04/02/16 at 13:01; Status DC Metoprolol Tartrate (Lopressor) 75 mg BID PO Last administered on 05/28/16at 21: 03; Start 04/02/16 at 21:00; Stop 05/29/16 at 11:21; Status DC Potassium Bicarb/ Potassium Chloride (K-Lyte Cl Eff) 25 meq ONCE ONCE PEG Last administered on 04/04/16at 14:40; Start 04/04/16 at 12:30; Stop 04/04/16 at 12:31; Status DC Linezolid (Zyvox) 600 mg Q12HR PO Last administered on 04/16/16at 09:11; Start 04/05/16 at 15:00; Stop 04/16/16 at 12:00; Status DC Artificial Tears (Lacrilube Opht Oint) 1 applic Q12HR EACH EYE Last administered on 09/04/16 21:00; Start 04/10/16 at 11:00; Stop 09/05/16 at 14:38 ; Status DC Hyoscyamine Sulfate (Levsin) 0.25 mg Q4H PRN G-TUBE INCREASED SECRETIONS Last administered on 08/31/16 05:02; Start 04/11/16 at 10:30 Diatrizoate Meglum/ Diatrizoate Sod (Md [place] Liq) 18 ml ONCE ONCE PO Last administered on 04/12/16at 16:45; Start 04/12/16 at 16:15; Stop 04/12/16 at 16:16; Status DC Warfarin Sodium (Coumadin) 3 mg DAILY@16 PO ; Start 04/13/16 at 16:00; Stop 05/27/16 at 11:51; Status DC Iohexol (Omnipaque 350 Inj) 98 ml STK-MED ONCE IV Last administered on at 21:01; Start 04/12/16 at 21:01; Stop 04/12/16 at 21:02; Status DC Diltiazem HCl (Cardizem Cd) 180 mg DAILY PO ; Start 04/15/16 at 09:00; Stop at 08:50; Status DC Ondansetron HCl (Zofran Inj) 4 mg Q6HR PRN IV PUSH nausea/vomiting Last administered on 08/10/16 10:16; Start 04/14/16 at 19:45 Diltiazem HCl 60 mg 60 mg QID PO Last administered on 04/25/16at 17:26; Start at 13:00; Stop 04/25/16 at 19:06; Status DC Sodium Chloride 500 ml @ 500 mls/hr BOLUS ONCE IV Last administered on at 09:15; Start 04/15/16 at 09:15; Stop 04/15/16 at 10:14; Status DC Potassium Chloride/Dextrose/ Sodium Chloride (KCl Inj/D5W-NS 1000 ml Inj) 1,005 ml @ 100 mls/hr Q10H3M IV Last administered on 04/15/16at 21:03; Start at 11:00; Stop 04/16/16 at 09:09; Status DC Enoxaparin Sodium (Lovenox Inj) 90 mg Q12H SQ Last administered on 04/16/16at 21 :12; Start 04/16/16 at 09:00; Stop 04/17/16 at 10:37; Status DC Water 200 ml 200 ml Q4HR TUBE Last administered on 10/31/16 04:00; Start 04/16 at 12:00 Sodium Chloride 1,000 ml @ 84 mls/hr [id number] IV Last administered on at 08:38; Start 04/16/16 at 10:00; Stop 04/20/16 at 12:04; Status DC Ceftriaxone Sodium/Sodium Chloride (Rocephin Inj/NS Inj) 100 ml @ 200 mls/hr Q24H IV Last administered on 05/02/16at 13:19; Start 04/16/16 at 12:00; Stop 05/03/16 at 12:06; Status DC Acetaminophen/ Hydrocodone Bitart ([place] 5-325 Mg) 1 tab Q6HR PEG Last administered on 09/17/16 06:42; Start 04/18/16 at 18:00; Stop 09/17/16 at 09:17 ; Status DC Lactulose (Lactulose Liq) 30 ml NOW ONCE PEG Last administered on 04/19/16at 17 :21; Start 04/19/16 at 17:30; Stop 04/19/16 at 17:31; Status DC Lactulose (Lactulose Liq) 30 ml DAILY PEG Last administered on 05/26/16at 08:14 ; Start 04/20/16 at 09:00; Stop 05/27/16 at 11:39; Status DC Potassium Bicarb/ Potassium Chloride (K-Lyte Cl Eff) 50 meq ONCE ONCE PO Last administered on 04/20/16at 05:52; Start 04/20/16 at 05:45; Stop 04/20/16 at 05:46; Status DC Furosemide (Lasix Inj) 20 mg ONCE ONCE IV PUSH Last administered on 04/20/16at 17:35; Start 04/20/16 at 12:00; Stop 04/20/16 at 12:06; Status DC Insulin Aspart (NovoLOG SUPPLEMENTAL SCALE) 1 ACHS SLIDING SCALE SQ Last administered on 06/02/16at 12:10; Start 04/20/16 at 16:00; Stop 06/02/16 at 21: 44; Status DC Dextrose (D50w (Vial) Inj) 25 ml UNSCH PRN IV HYPOGLYCEMIA-SEE COMMENTS; Start 04/20/16 at 12:00 Glucagon (Glucagon Inj) 1 mg UNSCH PRN IM/SQ HYPOGLYCEMIA-SEE COMMENTS; Start 04/20/16 at 12:00 Lactobacillus Acidophilus (Lactinex) 1 tab Q12HR PEG Last administered on 06/06at 21:34; Start 04/22/16 at 09:00; Stop 06/07/16 at 09:32; Status DC Furosemide (Lasix Inj) 20 mg Q12H IV PUSH Last administered on 04/24/16at 08:52 ; Start 04/22/16 at 09:00; Stop 04/24/16 at 09:25; Status DC Potassium Bicarb/ Potassium Chloride (K-Lyte Cl Eff) 25 meq Q12HR TUBE Last administered on 05/27/16at 08:17; Start 04/22/16 at 09:00; Stop 05/27/16 at 11:51 ; Status DC Albumin Human (Albumin 25% Inj) 12.5 gm Q12H IV Last administered on 04/24/16at 08:46; Start 04/22/16 at 09:00; Stop 04/24/16 at 09:25; Status DC Furosemide (Lasix Inj) 20 mg DAILY IV PUSH Last administered on 05/08/16at 09: 01; Start 04/25/16 at 09:00; Stop 05/08/16 at 11:06; Status DC Albumin Human (Albumin 25% Inj) 12.5 gm DAILY IV Last administered on at 09:02; Start 04/25/16 at 10:00; Stop 05/08/16 at 11:06; Status DC Furosemide (Lasix Inj) 40 mg ONCE ONCE IV PUSH Last administered on 04/25/16at 18:15; Start 04/25/16 at 18:15; Stop 04/25/16 at 18:16; Status DC Albuterol/ Ipratropium (Duoneb Neb) 1 ampule Q6HR NEB NEB Last administered on 04/27/16at 15:52; Start 04/25/16 at 18:30; Stop 04/27/16 at 19:45; Status DC Ipratropium [place] (Atrovent Neb) 0.5 mg Q6HR NEB NEB Last administered on at 16:51; Start 04/25/16 at 22:00; Stop 04/27/16 at 16:44; Status DC Levalbuterol HCl (Xopenex Neb) 0.31 mg Q4HR NEB NEB Last administered on at 23:48; Start 04/25/16 at 20:00; Stop 04/27/16 at 16:43; Status DC Levalbuterol HCl (Xopenex Neb) 0.31 mg Q2HR NEB PRN NEB SHORTNESS OF BREATH; Start 04/25/16 at 18:45; Stop 04/28/16 at 10:50; Status DC Diltiazem HCl (Cardizem) 90 mg QID PEG Last administered on 07/17/16at 09:27; Start 04/25/16 at 21:00; Stop 07/17/16 at 17:52; Status DC Diltiazem HCl (Cardizem) 30 mg NOW ONCE PEG Last administered on 04/25/16at 21: 36; Start 04/25/16 at 19:15; Stop 04/25/16 at 19:16; Status DC Levalbuterol HCl (Xopenex Neb) 0.31 mg Q8HR NEB NEB ; Start 04/28/16 at 00:00; Stop 04/28/16 at 10:50; Status DC Levalbuterol HCl (Xopenex Neb) 0.63 mg Q4HR NEB PRN NEB SHORTNESS OF BREATH Last administered on 05/04/16at 15:26; Start 04/28/16 at 11:00; Stop 05/04/16 at 00:51; Status DC Levalbuterol HCl (Xopenex Neb) 0.63 mg Q8HR NEB NEB Last administered on 05/04at 00:07; Start 04/28/16 at 16:00; Stop 05/04/16 at 00:50; Status DC Polyethylene Glycol/ Electrolytes 4000 ml 4,000 ml ONCE ONCE PO Last administered on 05/05/16at 08:10; Start 05/05/16 at 08:45; Stop 05/05/16 at 08 :46; Status DC Cefazolin Sodium/ Dextrose 50 ml @ 100 mls/hr ONCE ONCE IV ; Start 05/06/16 at 14:00; Stop 05/06/16 at 14:29; Status DC Metronidazole 100 ml @ 100 mls/hr ONCE ONCE IV Last administered on at 14:00; Start 05/06/16 at 14:00; Stop 05/06/16 at 14:59; Status DC Ceftriaxone Sodium/Sodium Chloride (Rocephin Inj/NS Inj) 100 ml @ 200 mls/hr Q24H IV Last administered on 06/09/16at 12:36; Start 05/03/16 at 12:00; Stop 06/10/16 at 12:48; Status DC Levalbuterol HCl (Xopenex Neb) 0.63 mg Q8HR NEB NEB Last administered on 05/05at 08:00; Start 05/04/16 at 00:49; Stop 05/05/16 at 08:07; Status DC Levalbuterol HCl (Xopenex Neb) 0.63 mg Q4HR NEB PRN NEB SHORTNESS OF BREATH Last administered on 10/18/16 15:44; Start 05/05/16 at 12:00 Levalbuterol HCl (Xopenex Neb) 0.63 mg Q8HR NEB NEB Last administered on 05/08at 23:56; Start 05/05/16 at 08:15; Stop 05/09/16 at 08:15; Status DC Potassium Bicarb/ Potassium Chloride (K-Lyte Cl Eff) 25 meq DAILY TUBE Last administered on 10/31/16 08:47; Start 05/28/16 at 09:00 Aspirin (Aspirin) 325 mg DAILY TUBE Last administered on 10/31/16 08:48; Start 05/27/16 at 11:40 Docusate Sodium (Colace Liq) 100 mg DAILY PRN PO constipation Last administered on 08/16/16 21:09; Start 05/27/16 at 11:45; Stop 08/31/16 at 09:00 ; Status DC Metoprolol Tartrate (Lopressor) 50 mg BID PO Last administered on 08/23/16 09: 03; Start 05/29/16 at 21:00; Stop 08/23/16 at 15:33; Status DC Acetaminophen/ Hydrocodone Bitart ([place] 5-325 Mg) 1 tab Q6H PRN TUBE BREAKTHROUGH PAIN Last administered on 08/02/16 15:11; Start 06/03/16 at 03:00 ; Stop 09/17/16 at 14:33; Status DC Insulin Aspart (NovoLOG SUPPLEMENTAL SCALE) 1 ACHS SLIDING SCALE SQ Last administered on 06/06/16at 21:35; Start 06/03/16 at 07:00; Stop 06/07/16 at 12 :24; Status DC Lactobacillus Acidophilus (Lactinex) 1 tab TID PEG Last administered on 09:13; Start 06/07/16 at 13:00; Stop 10/13/16 at 12:08; Status DC Insulin Aspart 1 1 AC BREAKFAST SQ Last administered on 10/28/16 06:13; Start 06/08/16 at 07:00 Ceftriaxone Sodium/Sodium Chloride (Rocephin Inj/NS Inj) 100 ml @ 200 mls/hr Q24H IV Last administered on 07/28/16 12:19; Start 06/10/16 at 12:00; Stop 07/29/16 at 13:30; Status DC Heparin Sodium (Porcine) (Heparin Inj) 5,000 units Q12HR SQ Last administered on 06/11/16at 00:58; Start 06/10/16 at 14:15; Stop 06/11/16 at 06:21; Status DC Heparin Sodium (Porcine) (Heparin Inj) 5,000 units Q8HR SQ Last administered on 10/31/16 05:01; Start 06/11/16 at 14:00 Diltiazem HCl (Cardizem) 30 mg QID PEG Last administered on 08/16/16 08:31; Start 07/17/16 at 18:00; Stop 08/16/16 at 12:06; Status DC Bacitracin 1 applic 1 applic BID TOP Last administered on 10/31/16 08:50; Start 07/20/16 at 10:00 Lactated Ringer's 1,000 ml @ 30 mls/hr Q24H IV ; Start 07/21/16 at 17:45; Stop 08/14/16 at 12:08; Status DC Sodium Chloride (NS 500 ml Inj) 500 ml @ 30 mls/hr [id number] IV ; Start 07/21/16 at 17:45; Stop 07/22/16 at 17:44; Status DC Insulin Human Regular (NovoLIN R INJ) See Protocol Table ... UNSCH X1 PRN SQ SEE PROTOCOL; Start 07/21/16 at 17:45; Stop 07/22/16 at 17:44; Status DC Metoprolol Tartrate (Lopressor) 25 mg UNSCH X1 PRN PO SEE LABEL COMMENTS; Start 07/21/16 at 17:45; Stop 07/22/16 at 17:44; Status DC Lidocaine/ Epinephrine (Xylocaine-Epi 1%-1:100,000 Inj) 40 ml STK-MED ONCE .ROUTE Last administered on 07/22/16 10:56; Start 07/22/16 at 10:04; Stop at 10:05; Status DC Ketamine HCl (Ketalar Inj) 500 mg STK-MED ONCE .ROUTE ; Start 07/22/16 at 10:50; Stop 07/22/16 at 10:51; Status DC Propofol 600 mg 600 mg STK-MED ONCE IV ; Start 07/22/16 at 12:00; Stop 07/23/16 at 14:36; Status DC Dextrose 1,000 ml @ 40 mls/hr Q24H ONCE IV Last administered on 07/28/16 14:33 ; Start 07/28/16 at 14:00; Stop 07/29/16 at 13:59; Status DC Ampicillin Sodium/ Sulbactam Sodium/ Sodium Chloride (Unasyn Inj/NS Inj) 100 ml @ 200 mls/hr Q6H IV Last administered on 08/01/16 12:30; Start 07/29/16 at 14: 00; Stop 08/01/16 at 14:13; Status DC Ondansetron HCl 4 mg 4 mg ONCE ONCE IV PUSH Last administered on 07/30/16 02: 46; Start 07/30/16 at 00:30; Stop 07/30/16 at 00:33; Status DC Lactated Ringer's 1,000 ml @ 30 mls/hr Q24H IV ; Start 07/30/16 at 06:00; Stop 08/14/16 at 12:09; Status DC Sodium Chloride (NS 500 ml Inj) 500 ml @ 30 mls/hr [id number] IV ; Start 07/30/16 at 06:00; Stop 07/31/16 at 05:59; Status DC Pantoprazole Sodium (Protonix Inj) 40 mg Q12H IV PUSH Last administered on 10/30 22:39; Start 07/30/16 at 10:15 Propofol 200 mg 200 mg STK-MED ONCE IV ; Start 07/30/16 at 09:41; Stop 07/30/16 at 10:19; Status DC Piperacillin Sod/ Tazobactam Sod (Zosyn 4.5 Gm Premix) 100 ml @ 200 mls/hr Q6H IV Last administered on 08/07/16 09:37; Start 08/01/16 at 16:00; Stop at 16:10; Status DC Linezolid (Zyvox) 600 mg Q12HR PO Last administered on 08/22/16 09:10; Start at 21:00; Stop 08/22/16 at 15:55; Status DC Sodium Chloride ([place]) 1 spray BID NASAL Last administered on 08:49; Start 08/01/16 at 21:00 Metronidazole 500 mg 500 mg Q8H PO Last administered on 08/08/16 08:28; Start 08/07/16 at 16:00; Stop 08/08/16 at 16:10; Status DC Sodium Chloride (NS 1000 ml Inj) 1,000 ml @ 42 mls/hr [id number] IV Last administered on 08/14/16 12:44; Start 08/14/16 at 12:00; Stop 08/15/16 at 10:56 ; Status DC Fentanyl Citrate (fentaNYL INJ) 250 mcg STK-MED ONCE .ROUTE Last administered on 08/14/16 15:36; Start 08/14/16 at 15:36; Stop 08/14/16 at 15:37; Status DC Iohexol (Omnipaque 350 Inj) 30 ml STK-MED ONCE G-TUBE Last administered on 08/14 15:45; Start 08/14/16 at 15:52; Stop 08/14/16 at 15:53; Status DC Diltiazem HCl (Cardizem) 30 mg QID PEG Last administered on 10/31/16 08:47; Start 08/16/16 at 13:00 Polyethylene Glycol (Miralax) 17 gm ONCE ONCE PEG Last administered on 11:32; Start 08/17/16 at 12:00; Stop 08/17/16 at 12:01; Status DC Amoxicillin 500 mg 500 mg Q8HR PO Last administered on 10/31/16 05:01; Start 08/22/16 at 22:00 Cefepime HCl/ Sodium Chloride (Maxipime Inj/NS Inj) 100 ml @ 200 mls/hr Q8H IV Last administered on 09/03/16 10:46; Start 08/23/16 at 16:00; Stop 09/03/16 at 15:02; Status DC Metoprolol Tartrate (Lopressor) 75 mg BID PO Last administered on 09/13/16 08: 42; Start 08/23/16 at 21:00; Stop 09/13/16 at 13:09; Status DC Docusate Sodium (Colace Liq) 100 mg BID PO Last administered on 10/31/16 08:48 ; Start 08/30/16 at 21:00 Sennosides (Senokot) 17.2 mg DAILY PO Last administered on 09/25/16 08:36; Start 08/30/16 at 14:00; Stop 09/25/16 at 16:09; Status DC Lactulose (Lactulose Liq) 30 ml DAILY PO Last administered on 10/31/16 08:48; Start 09/02/16 at 15:30 Artificial Tears (Tears Naturale Opth Soln) 1 drop BID EACH EYE Last administered on 10/31/16 08:49; Start 09/05/16 at 21:00 Midazolam HCl (Versed Inj) 2 mg STK-MED ONCE .ROUTE Last administered on 11:37; Start 09/09/16 at 11:37; Stop 09/09/16 at 11:38; Status DC Fentanyl Citrate (fentaNYL INJ) 100 mcg STK-MED ONCE .ROUTE Last administered on 09/09/16 11:38; Start 09/09/16 at 11:38; Stop 09/09/16 at 11:39; Status DC Iohexol (Omnipaque 350 Inj) 20 ml STK-MED ONCE G-TUBE Last administered on 09/09 11:50; Start 09/09/16 at 11:50; Stop 09/09/16 at 12:15; Status DC Metoprolol Tartrate (Lopressor) 50 mg BID PO Last administered on 10/31/16 08: 48; Start 09/13/16 at 21:00 Acetaminophen/ Hydrocodone Bitart ([place] 5-325 Mg) 1 tab Q6H PEG ; Start at 11:00; Stop 09/17/16 at 14:25; Status DC Acetaminophen/ Hydrocodone Bitart ([place] 5-325 Mg) 1 tab DAILY@1600 PO ; Start 09/17/16 at 16:00; Stop 09/17/16 at 16:00; Status DC Morphine Sulfate (Morphine Inj) 1 mg Q24H PRN IV PUSH dressing change 30 min before Last administered on 10/22/16 02:00; Start 09/17/16 at 14:30 Acetaminophen/ Hydrocodone Bitart ([place] 5-325 Mg) 1 tab DAILY@0000 PO Last administered on 09/17/16 23:43; Start 09/18/16 at 00:00; Stop 09/20/16 at 12:46; Status DC Acetaminophen/ Hydrocodone Bitart ([place] 5-325 Mg) 1 tab Q8H PO Last administered on 10/13/16 13:38; Start 09/20/16 at 13:00; Stop 10/13/16 at 18:29 ; Status DC Ketoconazole (Nizoral 2% Cream) 1 applic Q12HR TOPICAL Last administered on 21:04; Start 09/24/16 at 21:00 Sennosides (Senna Liq) 8.8 mg DAILY@1600 PO Last administered on 10/30/16 16: 28; Start 09/25/16 at 17:00 Sodium Biphosphate/ Sodium Phosphate (Fleets Enema (Adult)) 133 ml UNSCH PRN LA CONSTIPATION; Start 09/25/16 at 16:00 Bisacodyl (Dulcolax Supp) 10 mg DAILY PRN RECTAL CONSTIPATION Last administered on 10/20/16 12:53; Start 09/26/16 at 15:30 Bisacodyl (Dulcolax Supp) 10 mg ONCE ONCE RECTAL Last administered on 16:10; Start 09/26/16 at 15:30; Stop 09/26/16 at 15:31; Status DC Cyclobenzaprine HCl (Flexeril) 5 mg Q8H PO Last administered on 10/13/16 13:37 ; Start 10/13/16 at 12:15; Stop 10/13/16 at 18:27; Status DC Magnesium Hydroxide (Milk Of Magnesia Liq) 30 ml DAILY PRN PO constipation Last administered on 10/20/16 12:54; Start 10/13/16 at 14:30 Acetaminophen/ Hydrocodone Bitart ([place] 5-325 Mg) 1 tab Q6H PRN PO PAIN SCALE 1 TO 10; Start 10/13/16 at 18:30; Stop 10/13/16 at 18:30; Status DC Acetaminophen/ Hydrocodone Bitart ([place] 5-325 Mg) 1 tab Q6H PRN PO PAIN SCALE 1 TO 10 Last administered on 10/30/16 13:40; Start 10/13/16 at 18:45 Cyclobenzaprine HCl (Flexeril) 5 mg HS PRN PO muscle relaxant Last administered on 10/22/16 21:17; Start 10/14/16 at 14:15 Fentanyl Citrate (fentaNYL INJ) 100 mcg STK-MED ONCE .ROUTE ; Start 10/23/16 at 16:51; Stop 10/23/16 at 16:52; Status DC Glycerin (Glycerin Adult Supp) 2 gm ONCE ONCE RECTAL Last administered on 15:29; Start 10/26/16 at 15:00; Stop 10/26/16 at 15:01; Status DC Nitrofurantoin Macrocrystals (Macrobid) 100 mg BIDPC PO Last administered on 09:36; Start 10/26/16 at 15:00; Stop 10/29/16 at 14:59; Status DC Date of Insertion: Oct 12, 2016 A/P Assessment and Plan A/P 60-year-old male with: CVA Paraplegia 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 Recovery is not expected to occur. Medicaid with SSI pending. Recent Fever- now has resolved Could be from UTI or Decubitus ulcer treated. Constipation Resolved Follow for recurrence Clogged PEG tube Has occured on 10/14 and 10/23 Follow for recurrence Continue Flushes GI if replacement needed Chronic respiratory failure Related to CVA Continue trach management PRN Levsin pulmonary following. Atrial fibrillation Cardizem Metoprolol Follow heart rate History of non-Hodgkin's lymphoma Follow clinically Diabetes mellitus Follow blood sugars Decubitus ulcer stage IV: Wound care per [employer] executive wound vas was discontinued due to bleeding ( 10/29/16). Frequent turns Colostomy declined by family (inability to divert feces in this chronic setting increases risks with ulcer and for recurrence of ulcers) Chronic Arevalo Follow for UTIs Hx of Gastric Ulcer Follow clinically PPI Monitor H/H periodically. FEN: Continue Nepro tube feeds. Appreciate dietary recommendations. Continue free water flushes. Supplement potassium. DVT prophylaxis: SCDs. Discharge Planning dc planning to SNF-no funding- SSI pending. Medardo Au MD Oct 31, 2016 11:02
[2016-10-31] MEDS: PANTOPRAZOLE SODIUM 40 MG VIAL IV PUSH SCH ×2 (11:06→21:35)
[2016-10-31] MEDS: ACETAMINOPHEN/HYDROcodone 325 MG/5 MG TAB PO PRN (14:42)
[2016-10-31] MEDS: SENNOSIDES SYRUP 8.8 MG/5 ML CUP PO SCH (16:57)
[2016-10-31] MEDS: PARoxetine HCL SUSP 20 MG/10 ML UDC PEG SCH (18:28)
[2016-10-31] MEDS: INSULIN DETEMIR 100 UNITS/ML VIAL SQ SCH (21:35)
[2016-11-01] VITALS (8 sets, daily range): BP systolic 101–127; BP diastolic 66–77; PULSE 76–104; RESP 16–18; TEMP 97.3–98.1; O2SAT 97–100
[2016-11-01] MEDS: FREE WATER TUBE SCH ×5 (04:04→20:00)
[2016-11-01] MEDS: ACETIC ACID 0.25% SOLN 1000 ML IRR BTL IRRIGATION SCH ×3 (05:38→21:01)
[2016-11-01] MEDS: AMOXICILLIN (TRIHYDRATE) 500 MG CAP PO SCH ×3 (05:38→21:01)
[2016-11-01] MEDS: HEPARIN SODIUM - SQ 10,000 UNITS/ML VIAL SQ SCH ×3 (05:38→21:01)
[2016-11-01] MEDS: ACETAMINOPHEN/HYDROcodone 325 MG/5 MG TAB PO PRN (05:38)
[2016-11-01] MEDS: INSULIN ASPART SUPPLEMENTAL SCALE SQ SCH (06:34)
[2016-11-01] MEDS: LACTULOSE SYRUP 20 GM/30 ML CUP PO SCH (08:45)
[2016-11-01] MEDS: levETIRAcetam 500 MG/5 ML UDC TUBE SCH ×2 (08:45→21:01)
[2016-11-01] MEDS: DOCUSATE SODIUM 100 MG/10 ML UDC PO SCH ×2 (08:45→21:01)
[2016-11-01] MEDS: DILTIAZEM HCL 30 MG TAB PEG SCH ×4 (08:45→21:01)
[2016-11-01] MEDS: POTASSIUM CHLORIDE 25 MEQ EFFERVESCENT TAB TUBE SCH (08:45)
[2016-11-01] MEDS: ASPIRIN 325 MG TAB TUBE SCH (08:45)
[2016-11-01] MEDS: METOPROLOL TARTRATE 50 MG TAB PO SCH ×2 (08:46→21:01)
[2016-11-01] MEDS: SODIUM CHLORIDE 0.65% NASAL SPRAY 45 ML BTL NASAL SCH ×2 (08:48→21:00)
[2016-11-01] MEDS: BACITRACIN TOP OINT 15 GM TUBE TOP SCH ×2 (08:49→21:00)
[2016-11-01] MEDS: ARTIFICIAL TEARS OPTH SOLN 15 ML BTL EACH EYE SCH ×2 (08:49→21:00)
[2016-11-01] MEDS: NYSTATIN 100,000 U/GM PWD 15 GM BTL TOPICAL SCH ×2 (08:49→21:00)
[2016-11-01] MEDS: KETOCONAZOLE 2% CREAM 15 GM TOPICAL SCH ×2 (08:50→21:00)
[2016-11-01] MEDS: PANTOPRAZOLE SODIUM 40 MG VIAL IV PUSH SCH ×2 (11:23→21:09)
--- NOTE | 2016-11-01 11:52 | HHI.PR ---
Subjective Remarks in no distress. clinically no change. Objective Vitals Vital Signs Date Time Temp Pulse Resp B/P Pulse Ox O2 Delivery O2 Flow Rate FiO2 11/01/16 10:00 100 T-piece 28 11/01/16 10:00 100 T-piece 28 11/01/16 08:00 98.1 83 18 127/77 99 11/01/16 04:00 T-Piece 28 11/01/16 04:00 97.5 85 18 124/74 98 11/01/16 00:00 97.3 76 18 101/68 98 11/01/16 00:00 T-Piece 28 10/31/16 20:00 96.8 87 18 151/83 99 10/31/16 20:00 T-Piece 28 10/31/16 17:45 99 T-piece 6.00 28 10/31/16 17:09 97.1 79 20 101/63 99 10/31/16 15:42 17 I/O 10/31/16 10/31/16 10/31/16 11/01/16 11/01/16 11/01/16 07:00 15:00 23:00 07:00 15:00 23:00 Intake Total 1744 ml 505 ml Output Total 400 ml 1700 ml 800 ml Balance -400 ml 44 ml -295 ml Tube Feeding 1744 ml 505 ml Output Urine Total 400 ml 1700 ml 800 ml # Bowel Movements 1 2 Imaging Last Impressions Tube Change 10/23/16 0000 Signed Impressions: Service Date/Time: Sunday, October 23, 2016 16:34 - CONCLUSION: Uncomplicated gastrojejunostomy tube exchange as above. Existing tube was patent with some luminal narrowing. The balloon port was damaged and leaking, however. Bobby Gray MD Chest X-Ray 10/18/16 0000 Signed Impressions: Service Date/Time: Tuesday, October 18, 2016 19:17 - CONCLUSION: 1. Minimal right perihilar streakiness consistent with probable atelectasis. 2. Elevation of the right hemidiaphragm. 3. Tracheostomy tube in good position above the geno. Eduardo Valenzuela MD Abdomen X-Ray 08/31/16 0000 Signed Impressions: Service Date/Time: Wednesday, August 31, 2016 16:36 - CONCLUSION: 1. No acute findings. Mild constipation. Durga Dotson MD Abdomen/Pelvis CT 9/23/16 0000 Signed Impressions: Service Date/Time: Tuesday, April 12, 2016 20:52 - CONCLUSION: 1. 6.4 cm necrotic mass or abscess in the soft tissues posteriorly just below the sacrum associated with some bony destructive change of the lower most sacrum and coccyx with inflammatory changes extending into the ischiorectal fossa and into the presacral retroperitoneum predominantly on the left side. There is associated fairly marked mural thickening of the anal verge and rectum. 2. There is gastrostomy and Arevalo catheter present. Stable abdominal aortic aneurysm. Durga Dotson MD Head Magnetic Resonance Angiography 03/05/16 0000 Signed Impressions: Service Date/Time: Saturday, March 05, 2016 09:26 - CONCLUSION: Persistent high-grade subtotal occlusive stenotic lesions in the distal right vertebral artery and proximal basilar artery with significant improvement in flow and recanalization following initial presentation of thrombosis. Stable interstitial circulation without significant stenosis. 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 There is decreasing restricted diffusion and increasing loss of volume characteristic of a subacute to chronic infarct. No evidence of acute infarct, acute hemorrhage mass or edema. Ernesto Kulkarni MD Head CT 01/16/16 0000 Signed Impressions: Service Date/Time: Saturday, January 16, 2016 10:51 - CONCLUSION: No extensive low density in the brainstem colin more prominent in the right the left extending into the right middle cerebellar peduncle consistent with brainstem infarct nonhemorrhagic acute Wellington West MD Neck Magnetic Resonance Angiography 12/22/15 1445 Signed Impressions: Service Date/Time: Tuesday, December 22, 2015 09:22 - CONCLUSION: Variant origin of the left vertebral artery from the aortic arch. No evidence of carotid stenosis. Glen Zamora MD Head/Brain Mag Res Venography 12/22/15 0000 Signed Impressions: Service Date/Time: Tuesday, December 22, 2015 09:22 - CONCLUSION: Normal MRV. Jonel Jones Jr., MD Objective Remarks GENERAL: on Trach- in no apparent distress. CARDIOVASCULAR: Regular rate and regular rhythm without murmurs, gallops, or rubs. RESPIRATORY: Clear to auscultation. Breath sounds equal bilaterally. No wheezes , rales, or rhonchi. GASTROINTESTINAL: Abdomen soft, non-tender,distended. hypoactive bowel sounds-PEG in place MUSCULOSKELETAL: Extremities without clubbing, cyanosis, or edema. NEURO: awake Procedures 01/02/16 PEG placement 01/02/16 tracheostomy 07/22/2016 Wide excision of sacral skin wound, biopsy of the cavity lining and debridement. PEG tube replacement 07/29/16 VAC changes- M-W-F 4/5- GJ tube replacement Medications and IVs Current Medications IV Flush (NS Flush) 2 ml UNSCH PRN IVF FLUSH AFTER USING IV ACCESS Last administered on 09/28/16t 21:18; Start 12/21/15 at 06:00 Ondansetron HCl (Zofran Inj) 4 mg STK-MED ONCE .ROUTE ; Start 12/21/15 at 06:22; Stop 12/21/15 at 06:23; Status DC Ondansetron HCl (Zofran Inj) 4 mg ONCE ONCE IV PUSH Last administered on at 06:43; Start 12/21/15 at 06:30; Stop 12/21/15 at 06:31; Status DC Diltiazem HCl 20 mg 20 mg ONCE ONCE IV Last administered on 12/21/15at 06:42; Start 12/21/15 at 06:30; Stop 12/21/15 at 06:31; Status DC Diltiazem HCl/ Sodium Chloride (Cardizem Inj/NS Inj) 125 ml @ 0 mls/hr TITRATE IV Last administered on 12/21/15at 06:47; Start 12/21/15 at 06:30; Stop 12/21/15 at 13:00; Status DC Acetaminophen (Tylenol) 650 mg ONCE ONCE PO ; Start 12/21/15 at 06:45; Stop 12/20 at 06:46; Status DC Lorazepam (Ativan Inj) 1 mg ONCE ONCE IV PUSH Last administered on 12/21/15at 07 :22; Start 12/21/15 at 07:15; Stop 12/21/15 at 07:16; Status DC Etomidate (Amidate Inj) 40 mg STK-MED ONCE .ROUTE Last administered on at 08:17; Start 12/21/15 at 07:37; Stop 12/21/15 at 07:38; Status DC Succinylcholine Chloride 200 mg 200 mg STK-MED ONCE .ROUTE Last administered on 12/21/15at 08:18; Start 12/21/15 at 07:37; Stop 12/21/15 at 07:38; Status DC Propofol (Diprivan 1000 Mg/100ml Inj) 100 ml @ As Directed STK-MED ONCE .ROUTE Last administered on 12/21/15at 08:19; Start 12/21/15 at 07:46; Stop 12/21/15 at 07:47; Status DC Propofol (Diprivan 1000 Mg/100ml Inj) search Sets for Drip. NOW PRN IV SEDATION Last administered on 12/22/15at 06:25; Start 12/21/15 at 08:30; Stop 12/28 at 15:43; Status DC Gadodiamide (Omniscan Pf Inj) 18 ml STK-MED ONCE IV Last administered on at 10:11; Start 12/21/15 at 10:11; Stop 12/21/15 at 10:12; Status DC Pantoprazole Sodium (Protonix Inj) 40 mg DAILY IV Last administered on at 07:39; Start 12/21/15 at 13:00; Stop 01/03/16 at 10:10; Status DC Albuterol/ Ipratropium (Duoneb Neb) 1 ampule Q6HR NEB INH Last administered on 12/25/15at 07:51; Start 12/21/15 at 13:00; Stop 12/25/15 at 13:00; Status DC Miscellaneous Information 1 [id number] Last administered on 12/21/15at 13:00; Start 12/21/15 at 13:00; Stop 01/12/16 at 11:47; Status DC Chlorhexidine Gluconate (Chlorhexidine 2% Cloth) 3 pack Taper DAILY@04 TOP Last administered on 01/11/16at 04:10; Start 12/22/15 at 04:00; Stop 01/12/16 at 11:47; Status DC Chlorhexidine Gluconate 3 pack 3 pack UNSCH PRN TOP HYGIENIC CARE; Start at 13:00; Stop 01/12/16 at 11:47; Status DC Sodium Chloride (NS 1000 ml Inj) 1,000 ml @ 75 mls/hr [id number] IV Last administered on 12/22/15at 17:00; Start 12/21/15 at 13:00; Stop 12/22/15 at 19:01; Status DC Dextrose (D50w (Vial) Inj) 25 ml UNSCH PRN IV PUSH HYPOGLYCEMIA-SEE COMMENTS; Start 12/21/15 at 13:00; Stop 04/19/16 at 17:19; Status DC Glucagon (Glucagon Inj) 1 mg UNSCH PRN OTHER HYPOGLYCEMIA-SEE COMMENTS; Start 12/21/15 at 13:00; Stop 04/19/16 at 17:19; Status DC Insulin Human Regular (NovoLIN R SUPPLEMENTAL SCALE) 1 Q6H SQ Last administered on 01/04/16at 06:31; Start 12/21/15 at 13:00; Stop 01/04/16 at 10:05 ; Status DC Levetriacetam (Keppra) 500 mg Q12HR PO Last administered on 12/27/15at 09:00; Start 12/21/15 at 13:45; Stop 12/27/15 at 09:44; Status DC Heparin Sodium (Porcine) (Heparin Inj) 5,000 units BID SQ Last administered on 12/22/15at 20:52; Start 12/21/15 at 21:00; Stop 12/23/15 at 08:32; Status DC Warfarin Sodium (Coumadin) 7.5 mg ONCE ONCE PO Last administered on 12/21/15at 21:43; Start 12/21/15 at 21:00; Stop 12/21/15 at 21:01; Status DC Warfarin Sodium (Coumadin) 5 mg DAILY@16 PO Last administered on 12/23/15 16:00 ; Start 12/22/15 at 16:00; Stop 12/26/15 at 09:29; Status DC Patient Medication Teaching (Coumadin Booklet) 1 ONCE ONCE XX Last administered on 12/21/15at 20:15; Start 12/21/15 at 20:15; Stop 12/21/15 at 20:16; Status DC Chlorhexidine Gluconate (Peridex 0.12% Liq) 15 ml BID@08,20 MT Last administered on 01/12/16at 08:00; Start 12/22/15 at 20:00; Stop 01/12/16 at 11:47 ; Status DC Gadodiamide 20 ml 20 ml STK-MED ONCE IV Last administered on 12/22/15at 09:55; Start 12/22/15 at 09:55; Stop 12/22/15 at 09:56; Status DC Pharmacy Profile Note ml @ 0 mls/hr UNSCH OTHER ; Start 12/22/15 at 11:00; Stop 12/22/15 at 19:43; Status DC Sodium Chloride 1,000 ml @ 50 mls/hr Q20H IV Last administered on 12/24/15at 20: 02; Start 12/22/15 at 18:44; Stop 12/25/15 at 11:52; Status DC Pharmacy Profile Note (Coumadin Consult Pharmacy) 0 ml @ 0 mls/hr UNSCH OTHER ; Start 12/22/15 at 19:45; Stop 01/04/16 at 12:25; Status DC Acetaminophen 650 mg 650 mg Q6H PRN PO TEMP > 100 Last administered on at 13:24; Start 12/23/15 at 02:45; Stop 12/30/15 at 15:04; Status DC Potassium Chloride 100 ml @ 50 mls/hr Q2H PRN IV For Potassium 2.8 - 3.2 mEq/L ; Start 12/23/15 at 08:30; Stop 01/09/16 at 11:14; Status DC Potassium Chloride (KCl 20 Meq Premix Inj) 100 ml @ 50 mls/hr Q2H PRN IV For Potassium 2.8 - 3.2 mEq/L; Start 12/23/15 at 08:30; Stop 01/09/16 at 11:14; Status DC Potassium Chloride 40 meq 40 meq UNSCH PRN PO/TUBE For Potassium 3.3 - 3.5 mEq/ L; Start 12/23/15 at 08:30; Stop 01/09/16 at 11:14; Status DC Potassium Chloride 100 ml @ 25 mls/hr UNSCH PRN IV For Potassium 3.3 - 3.5 mEq /L; Start 12/23/15 at 08:30; Stop 01/09/16 at 11:14; Status DC Potassium Chloride 100 ml @ 50 mls/hr Q2H PRN IV For Potassium 3.3 - 3.5 mEq/L ; Start 12/23/15 at 08:30; Stop 01/09/16 at 11:14; Status DC Magnesium Sulfate/ Sodium Chloride (Magnesium Sulfate Inj/NS Inj) 100 ml @ 50 mls/hr UNSCH PRN IV For Magnesium 0.9 - 1.1 mg/dL; Start 12/23/15 at 08:30; Stop 01/09/16 at 11:14; Status DC Magnesium Oxide 800 mg 800 mg UNSCH PRN PO For Magnesium 1.2 - 1.6 mg/dL; Start 12/23/15 at 08:30; Stop 01/09/16 at 11:14; Status DC Magnesium Sulfate/ Sodium Chloride (Magnesium Sulfate Inj/NS Inj) 100 ml @ 50 mls/hr UNSCH PRN IV For Magnesium 1.2 - 1.6 mg/dL; Start 12/23/15 at 08:30; Stop 01/09/16 at 11:14; Status DC Potassium Phosphate 2000 mg 2,000 mg Q4H PRN PO For Phosphorus < 2.5 mg/dL; Start 12/23/15 at 08:30; Stop 01/09/16 at 11:14; Status DC Sodium Phosphate/ Sodium Chloride (Sodium Phosphate Inj/NS 250 ml Inj) 250 ml @ 42 mls/hr UNSCH PRN IV For Phosphorus < 2.5 mg/dL; Start 12/23/15 at 08:30; Stop 01/09/16 at 11:14; Status DC Potassium Chloride (KCl 40 Meq/30 ml Liq) 40 meq UNSCH PRN PO/TUBE SEE LABEL COMMENTS; Start 12/23/15 at 08:30; Stop 01/09/16 at 11:14; Status DC Potassium Phosphate 2000 mg 2,000 mg UNSCH PRN PO/TUBE SEE LABEL COMMENTS; Start 12/23/15 at 08:30; Stop 01/09/16 at 11:14; Status DC Potassium Phosphate 30 mmol/ Sodium Chloride 260 ml @ 42 mls/hr UNSCH PRN IV SEE LABEL COMMENTS; Start 12/23/15 at 08:30; Stop 01/09/16 at 11:14; Status DC Sodium Chloride 1,000 ml @ 75 mls/hr [id number] IV ; Start 12/23/15 at 08:30; Stop 12/23/15 at 08:30; Status DC Piperacillin Sod/ Tazobactam Sod 50 ml @ 100 mls/hr Q6H IV Last administered on 12/30/15at 10:02; Start 12/23/15 at 10:00; Stop 12/30/15 at 14:50; Status DC Vancomycin HCl/ Sodium Chloride (Vancomycin Inj/ NS 250 ml Inj) 250 ml @ 250 mls/hr Q12H IV Last administered on 12/29/15at 09:01; Start 12/24/15 at 08:45; Stop 12/29/15 at 15:33; Status DC Warfarin Sodium (Coumadin) 4 mg DAILY@16 PO Last administered on 12/28/15at 16:00 ; Start 12/26/15 at 16:00; Stop 01/04/16 at 12:25; Status DC Levetriacetam (Keppra Liq) 500 mg Q12HR TUBE Last administered on 11/01/16t 08 :45; Start 12/27/15 at 21:00 Docusate Sodium (Colace Liq) 100 mg Q12HR TUBE Last administered on 01/15/16at 09:01; Start 12/27/15 at 21:00; Stop 04/16/16 at 08:50; Status DC Sennosides (Senna Liq) 8.8 mg DAILY TUBE Last administered on 01/15/16at 09:01 ; Start 12/27/15 at 17:00; Stop 01/15/16 at 20:37; Status DC Bisacodyl (Dulcolax Supp) 10 mg ONCE ONCE RECTAL ; Start 12/27/15 at 16:15; Stop 12/27/15 at 16:15; Status DC Albuterol/ Ipratropium (Duoneb Neb) 1 ampule Q4HR NEB PRN NEB RESPIRATORY DISTRESS Last administered on 12/29/15at 12:17; Start 12/27/15 at 22:00; Stop at 08:16; Status DC Bisacodyl (Dulcolax Supp) 10 mg ONCE ONCE RECTAL ; Start 12/28/15 at 12:00; Stop 12/28/15 at 12:01; Status DC Sodium Chloride (Sodium Chloride) 1 gm BID TUBE Last administered on 12/29/15at 09:02; Start 12/28/15 at 21:00; Stop 12/29/15 at 15:43; Status DC Lactulose (Lactulose Liq) 30 ml DAILY TUBE Last administered on 12/29/15at 09:02 ; Start 12/28/15 at 20:30; Stop 12/29/15 at 15:43; Status DC Levofloxacin (Levaquin) 750 mg DAILY@16 TUBE ; Start 12/29/15 at 16:00; Stop 05/05 at 16:00; Status DC Sodium Chloride (Sodium Chloride) 1 gm DAILY TUBE Last administered on at 07:29; Start 12/30/15 at 09:00; Stop 12/31/15 at 14:08; Status DC Water 200 ml 200 ml Q6HR G-TUBE Last administered on 12/31/15at 04:19; Start 06/05 at 14:45; Stop 12/31/15 at 07:31; Status DC Ceftriaxone Sodium/Sodium Chloride (Rocephin Inj/NS Inj) 100 ml @ 200 mls/hr Q12H IV Last administered on 01/03/16at 02:47; Start 12/30/15 at 15:00; Stop at 10:09; Status DC Acetaminophen (Tylenol 650 Mg/ 20 ml Liq) 650 mg Q6H PRN TUBE TEMP >100.4 Last administered on 10/25/16t 15:13; Start 12/30/15 at 15:15 Lactobacillus Acidophilus (Lactinex Pkt) 1 gm BID TUBE Last administered on at 09:00; Start 12/30/15 at 21:00; Stop 02/10/16 at 14:30; Status DC Enoxaparin Sodium (Lovenox Inj) 90 mg Q12H SQ Last administered on 01/01/16at 21 :57; Start 12/31/15 at 08:00; Stop 01/03/16 at 10:33; Status DC Water (Free Water) 100 ml Q12H G-TUBE ; Start 12/31/15 at 18:00; Stop 12/31/15 at 18:00; Status DC Acetaminophen/ Hydrocodone Bitart ([place] 5-325 Mg) 1 tab Q6H PRN PO PAIN Last administered on 05/26/16at 20:46; Start 12/31/15 at 15:00; Stop 06/02/16 at 21: 44; Status DC Fentanyl Citrate (Sublimaze Inj) 25 mcg Q1H PRN IV PUSH BREAKTHROUGH PAIN; Start 12/31/15 at 15:00; Stop 03/06/16 at 10:03; Status DC Water (Free Water) 200 ml Q8H G-TUBE Last administered on 01/01/16at 17:55; Start 12/31/15 at 18:00; Stop 01/02/16 at 09:56; Status DC Sodium Chloride (Sodium Chloride) 1 gm BID TUBE Last administered on 01/03/16at 07:39; Start 12/31/15 at 21:00; Stop 01/03/16 at 09:08; Status DC Miscellaneous Information Hold Anticoagulation after midni... ONCE ONCE OTHER ; Start 01/01/16 at 10:15; Stop 01/01/16 at 10:29; Status DC Sodium Chloride (NS 1000 ml Inj) 1,000 ml @ 50 mls/hr Q20H IV Last administered on 01/02/16at 12:26; Start 01/01/16 at 18:00; Stop 01/03/16 at 10:07 ; Status DC Midazolam HCl (Versed Inj) 5 mg STK-MED ONCE .ROUTE ; Start 01/02/16 at 12:47; Stop 01/02/16 at 12:48; Status DC Vecuronium [place] (Norcuron 10 Mg Inj) 10 mg STK-MED ONCE .ROUTE ; Start at 12:47; Stop 01/02/16 at 12:48; Status DC Fentanyl Citrate (Sublimaze Inj) 250 mcg ONCE ONCE IV PUSH Last administered on 01/02/16at 15:00; Start 01/02/16 at 15:00; Stop 01/02/16 at 15:01; Status DC Midazolam HCl (Versed Inj) 10 mg ONCE ONCE IV PUSH Last administered on at 15:00; Start 01/02/16 at 15:00; Stop 01/02/16 at 15:01; Status DC Rocuronium [place] (Zemuron Inj) 100 mg BOLUS ONCE IV Last administered on at 15:00; Start 01/02/16 at 15:00; Stop 01/02/16 at 15:01; Status DC Ketamine HCl (Ketalar Inj) 500 mg STK-MED ONCE .ROUTE ; Start 01/02/16 at 14:30 ; Stop 01/02/16 at 14:31; Status DC Propofol 230 mg 230 mg STK-MED ONCE IV ; Start 01/02/16 at 16:51; Stop 01/02/16 at 16:52; Status DC Sodium Chloride (NS 1000 ml Inj) 1,000 ml @ 0 mls/hr Q0M IV ; Start 01/03/16 at 10:15; Stop 01/17/16 at 17:30; Status DC Ranitidine HCl (Zantac Liq) 150 mg Q12HR PO Last administered on 01/17/16at 07: 39; Start 01/04/16 at 09:00; Stop 01/17/16 at 15:23; Status DC Enoxaparin Sodium 90 mg 90 mg Q12HR SQ Last administered on 01/11/16at 10:01; Start 01/04/16 at 09:00; Stop 01/11/16 at 12:35; Status DC Sodium Chloride (NS 500 ml Inj) 500 ml @ 0 mls/hr BOLUS ONCE IV Last administered on 01/03/16at 22:57; Start 01/03/16 at 23:00; Stop 01/03/16 at 23:01 ; Status DC Insulin Aspart (NovoLOG SUPPLEMENTAL SCALE) 1 Q6HR SQ Last administered on at 12:00; Start 01/04/16 at 12:00; Stop 03/24/16 at 13:58; Status DC Potassium Chloride (KCl 40 Meq/30 ml Liq) 40 meq Q4H NG Last administered on at 16:21; Start 01/04/16 at 13:00; Stop 01/04/16 at 17:01; Status DC Warfarin Sodium 5 mg 5 mg DAILY@1600 PO Last administered on 01/09/16at 17:21; Start 01/04/16 at 16:00; Stop 01/10/16 at 10:06; Status DC Pharmacy Profile Note (Coumadin Consult Pharmacy) 0 ml @ 0 mls/hr UNSCH XX ; Start 01/04/16 at 12:30; Stop 04/20/16 at 12:04; Status DC Insulin Detemir (Levemir Inj) 10 units Q12HR SQ Last administered on 01/05/16at 08:00; Start 01/04/16 at 21:00; Stop 01/05/16 at 08:42; Status DC Insulin Detemir (Levemir Inj) 5 units NOW ONCE SQ Last administered on at 13:28; Start 01/04/16 at 12:45; Stop 01/04/16 at 12:46; Status DC Albuterol/ Ipratropium (Duoneb Neb) 1 ampule Q4HR NEB PRN NEB dyspnea Last administered on 04/19/16at 02:24; Start 01/07/16 at 08:15; Stop 04/25/16 at 18:54 ; Status DC Warfarin Sodium (Coumadin) 7.5 mg ONCE ONCE PO Last administered on 01/07/16at 16:40; Start 01/07/16 at 16:00; Stop 01/07/16 at 16:01; Status DC Nystatin (Mycostatin Powder) 1 applic Q12HR TOPICAL Last administered on t 08:49; Start 01/08/16 at 21:00 Ipratropium [place] (Atrovent Neb) 0.5 mg TID NEB NEB Last administered on 02/20at 13:17; Start 01/08/16 at 20:00; Stop 02/21/16 at 17:52; Status DC Warfarin Sodium (Coumadin) 5 mg DAILY@1600 PO Last administered on 01/11/16at 14 :26; Start 01/11/16 at 16:00; Stop 01/12/16 at 09:45; Status DC Warfarin Sodium (Coumadin) 6 mg ONCE PO Last administered on 01/10/16at 17:10; Start 01/10/16 at 16:00; Stop 01/10/16 at 21:00; Status DC Metoprolol Tartrate (Lopressor) 50 mg Q12HR GT Last administered on 01/11/16at 10:02; Start 01/10/16 at 11:00; Stop 01/11/16 at 12:30; Status DC Metoprolol Tartrate (Lopressor) 50 mg TID GT Last administered on 01/14/16at 08: 24; Start 01/11/16 at 13:00; Stop 01/14/16 at 08:28; Status DC Insulin Detemir (Levemir Inj) 10 units HS SQ Last administered on 01/11/16at 22: 23; Start 01/11/16 at 21:00; Stop 01/12/16 at 11:47; Status DC Warfarin Sodium (Coumadin) 4 mg DAILY@16 PO ; Start 01/12/16 at 16:00; Stop at 16:00; Status DC Insulin Detemir (Levemir Inj) 20 units HS SQ Last administered on 01/13/16at 20: 26; Start 01/12/16 at 21:00; Stop 01/14/16 at 08:28; Status DC Warfarin Sodium (Coumadin) 2 mg DAILY@16 PO Last administered on 01/13/16at 17: 05; Start 01/12/16 at 16:00; Stop 01/14/16 at 11:23; Status DC Insulin Detemir (Levemir Inj) 22 units HS SQ Last administered on 01/14/16at 21: 37; Start 01/14/16 at 21:00; Stop 01/15/16 at 10:06; Status DC Metoprolol Tartrate (Lopressor) 75 mg TID GT Last administered on 03/10/16at 17: 43; Start 01/14/16 at 09:00; Stop 03/10/16 at 21:13; Status DC Miscellaneous (Pill Splitter) 1 ea UNSCH PRN OTHER SEE LABEL COMMENTS; Start at 08:30 Warfarin Sodium (Coumadin) 4 mg DAILY@1600 PO Last administered on 01/21/16at 16: 51; Start 01/14/16 at 16:00; Stop 01/23/16 at 09:29; Status DC Patient Medication Teaching (Coumadin Booklet) 1 ONCE ONCE XX ; Start 01/14/16 at 16:00; Stop 01/14/16 at 16:01; Status DC Insulin Detemir (Levemir Inj) 24 units HS SQ Last administered on 03/04/16at 21: 09; Start 01/15/16 at 21:00; Stop 03/05/16 at 11:17; Status DC Citalopram Hydrobromide (CeleXA) 20 mg DAILY PEG Last administered on at 08:01; Start 01/16/16 at 09:00; Stop 01/16/16 at 09:41; Status DC Sennosides (Senna Liq) 8.8 mg BID TUBE Last administered on 02/20/16at 08:32; Start 01/15/16 at 21:00; Stop 02/20/16 at 16:13; Status DC Gadodiamide 18 ml 18 ml STK-MED ONCE IV ; Start 01/16/16 at 20:40; Stop at 20:41; Status DC Sodium Chloride (NS 1000 ml Inj) 1,000 ml @ 125 mls/hr Q8H IV Last administered on 01/17/16at 15:11; Start 01/17/16 at 15:00; Stop 01/17/16 at 17:31 ; Status DC Ranitidine HCl 150 mg 150 mg Q24H PO Last administered on 07/28/16t 08:54; Start 01/18/16 at 09:00; Stop 07/30/16 at 10:05; Status DC Sodium Chloride 1,000 ml @ 75 mls/hr [id number] IV Last administered on at 05:22; Start 01/17/16 at 18:00; Stop 01/18/16 at 09:28; Status DC Sodium Chloride/ Sterile Water (Sodium Chloride 23.4% Inj/Sterile Water For Inj ) 1,009.625 ml @ 60 mls/hr [id number] IV Last administered on 01/21/16at 22:46; Start 01/18/16 at 11:00; Stop 01/22/16 at 10:09; Status DC Potassium Chloride (KCl) 40 meq ONCE ONCE PO ; Start 01/18/16 at 09:30; Stop at 09:31; Status DC Potassium Chloride (KCl 40 Meq/30 ml Liq) 40 meq ONCE ONCE TUBE Last administered on 01/18/16at 11:08; Start 01/18/16 at 11:00; Stop 01/18/16 at 11:01 ; Status DC Water (Free Water) 300 ml Q4HR TUBE Last administered on 01/19/16at 08:00; Start 01/18/16 at 12:00; Stop 01/19/16 at 10:43; Status DC Water (Free Water) 400 ml Q4HR TUBE Last administered on 04/16/16at 04:00; Start 01/19/16 at 12:00; Stop 04/16/16 at 09:09; Status DC Potassium Chloride (KCl 40 Meq/30 ml Liq) 40 meq ONCE ONCE NG Last administered on 01/19/16at 11:41; Start 01/19/16 at 11:00; Stop 01/19/16 at 11:01; Status DC Potassium Chloride 60 meq 60 meq ONCE ONCE PO/TUBE Last administered on at 13:30; Start 01/21/16 at 11:15; Stop 01/21/16 at 11:27; Status DC Sodium Chloride (1/2 NS 1000 ml Inj) 1,000 ml @ 30 mls/hr Q24H IV Last administered on 02/06/16at 11:26; Start 01/22/16 at 11:00; Stop 02/07/16 at 14:49 ; Status DC Warfarin Sodium (Coumadin) 3 mg DAILY@16 PO Last administered on 01/23/16at 17:19 ; Start 01/23/16 at 16:00; Stop 01/24/16 at 14:05; Status DC Warfarin Sodium (Coumadin) 3 mg DAILY@16 PO Last administered on 01/25/16at 15:59 ; Start 01/25/16 at 16:00; Stop 01/26/16 at 15:04; Status DC Warfarin Sodium (Coumadin) 4 mg ONCE@1600 ONCE PO Last administered on at 16:55; Start 01/24/16 at 16:00; Stop 01/24/16 at 16:01; Status DC Warfarin Sodium (Coumadin) 3 mg DAILY@16 PO ; Start 01/27/16 at 16:00; Stop at 16:00; Status DC Warfarin Sodium (Coumadin) 4 mg ONCE@1600 ONCE PO Last administered on at 16:52; Start 01/26/16 at 16:00; Stop 01/26/16 at 16:01; Status DC Potassium Chloride (KCl 40 Meq/30 ml Liq) 80 meq ONCE ONCE PO Last administered on 01/27/16at 07:45; Start 01/27/16 at 07:45; Stop 01/27/16 at 08:10; Status DC Warfarin Sodium (Coumadin) 4 mg DAILY@16 PO Last administered on 02/02/16at 17: 22; Start 01/27/16 at 16:00; Stop 02/03/16 at 11:37; Status DC Acetic Acid (Acetic Acid 0.25% Irr Btl) 10 ml Q8HR IRRIGATION Last administered on 02/05/16at 06:00; Start 01/28/16 at 22:00; Stop 02/05/16 at 15:51 ; Status DC Warfarin Sodium 3 mg 3 mg DAILY@1600 PO Last administered on 02/11/16at 17:34; Start 02/03/16 at 16:00; Stop 02/12/16 at 12:45; Status DC Ceftriaxone Sodium/Sodium Chloride (Rocephin Inj/NS Inj) 100 ml @ 200 mls/hr Q24H IV Last administered on 02/10/16at 05:23; Start 02/05/16 at 06:30; Stop at 14:32; Status DC Acetic Acid (Acetic Acid 0.25% Irr Btl) 10 ml Q8HR IRRIGATION ; Start 02/05/16 at 16:00; Status Cancel Acetic Acid (Acetic Acid 0.25% Irr Btl) 10 ml Q8HR IRRIGATION Last administered on 11/01/16t 05:38; Start 02/05/16 at 16:00 Lactobacillus Acidophilus (Lactinex) 1 tab Q12HR PO Last administered on at 08:25; Start 02/10/16 at 21:00; Stop 02/12/16 at 16:05; Status DC Warfarin Sodium (Coumadin) 4 mg DAILY@1600 PO Last administered on 02/14/16at 15 :56; Start 02/12/16 at 16:00; Stop 02/15/16 at 10:17; Status DC Paroxetine HCl (Paxil Liq) 20 mg DAILY PEG Last administered on 02/25/16at 07:33 ; Start 02/16/16 at 09:00; Stop 02/25/16 at 10:36; Status DC Warfarin Sodium (Coumadin) 3 mg DAILY@1600 PO Last administered on 02/19/16at 16: 42; Start 02/15/16 at 16:00; Stop 02/20/16 at 08:50; Status DC Warfarin Sodium (Coumadin) 4 mg DAILY@16 PO Last administered on 02/21/16at 15:54 ; Start 02/20/16 at 16:00; Stop 02/22/16 at 08:46; Status DC Sennosides (Senna Liq) 8.8 mg DAILY TUBE Last administered on 05/26/16at 08:14 ; Start 02/21/16 at 09:00; Stop 05/27/16 at 11:51; Status DC Albuterol Sulfate (Albuterol Neb) 2.5 mg QID NEB INH Last administered on at 19:51; Start 02/21/16 at 20:00; Stop 02/25/16 at 20:00; Status DC Acetylcysteine (Mucomyst 10% Neb) 1 ml QID NEB NEB Last administered on at 16:32; Start 02/21/16 at 20:00; Stop 02/23/16 at 16:01; Status DC Warfarin Sodium (Coumadin) 3 mg DAILY@16 PO Last administered on 02/22/16at 15:59 ; Start 02/22/16 at 16:00; Stop 02/23/16 at 08:56; Status DC Warfarin Sodium (Coumadin) 3 mg DAILY@16 PO Last administered on 02/28/16at 16: 17; Start 02/24/16 at 16:00; Stop 02/29/16 at 10:04; Status DC Warfarin Sodium (Coumadin) 2 mg ONCE PO Last administered on 02/23/16at 16:22; Start 02/23/16 at 16:00; Stop 02/23/16 at 21:00; Status DC Paroxetine HCl (Paxil Liq) 20 mg DAILY@1900 PEG Last administered on 03/08/16at 18:11; Start 02/26/16 at 19:00; Stop 03/09/16 at 11:31; Status DC Warfarin Sodium (Coumadin) 3 mg DAILY@16 PO Last administered on 03/06/16at 16: 22; Start 03/01/16 at 16:00; Stop 03/09/16 at 10:30; Status DC Warfarin Sodium (Coumadin) 1 mg ONCE PO Last administered on 02/29/16at 17:28; Start 02/29/16 at 16:00; Stop 02/29/16 at 21:00; Status DC Insulin Detemir (Levemir Inj) 27 units HS SQ Last administered on 03/05/16at 20: 25; Start 03/05/16 at 21:00; Stop 03/06/16 at 10:03; Status DC Patient Medication Teaching (Coumadin Booklet) 1 ONCE ONCE XX Last administered on 03/05/16at 16:00; Start 03/05/16 at 16:00; Stop 03/05/16 at 16:01 ; Status DC Insulin Detemir (Levemir Inj) 30 units HS SQ Last administered on 03/21/16at 22: 32; Start 03/06/16 at 21:00; Stop 03/22/16 at 14:48; Status DC Trimethoprim/ Sulfamethoxazole (Bactrim 800-160 Mg/20 ml Liq) 20 ml Q12HR PO Last administered on 03/14/16at 08:01; Start 03/07/16 at 11:15; Stop 03/14/16 at 11:14; Status DC Lorazepam (Ativan Inj) 0.5 mg Q4H PRN IV PUSH seizures or agitation; Start at 23:00 Metronidazole (Flagyl) 500 mg Q8H PO Last administered on 03/14/16at 15:51; Start 03/08/16 at 17:00; Stop 03/14/16 at 23:00; Status DC Warfarin Sodium (Coumadin) 2 mg DAILY@16 PO Last administered on 03/09/16at 17: 20; Start 03/09/16 at 16:00; Stop 03/10/16 at 10:33; Status DC Paroxetine HCl (Paxil) 20 mg DAILY@1900 PEG Last administered on 03/11/16at 17: 55; Start 03/09/16 at 19:00; Stop 03/12/16 at 08:31; Status DC Warfarin Sodium 3 mg 3 mg DAILY@16 PO Last administered on 04/12/16at 15:28; Start 03/10/16 at 16:00; Stop 04/12/16 at 16:39; Status DC Pharmacy Profile Note 0 ml @ 0 mls/hr UNSCH OTHER ; Start 03/10/16 at 14:15; Stop 03/18/16 at 11:33; Status DC Vancomycin HCl/ Sodium Chloride (Vancomycin Inj/ NS 500 ml Inj) 530 ml @ 265 mls/hr Q12H IV Last administered on 03/17/16at 16:26; Start 03/10/16 at 16:00; Stop 03/17/16 at 23:00; Status DC Miscellaneous Information SPECIFIC LAB TO BE ... ONCE ONCE XX Last administered on 03/12/16at 04:45; Start 03/12/16 at 03:45; Stop 03/12/16 at 03:46 ; Status DC Metoprolol Tartrate (Lopressor) 75 mg Q8HR PO Last administered on 04/02/16at 13 :13; Start 03/10/16 at 22:00; Stop 04/02/16 at 17:31; Status DC Paroxetine HCl (Paxil Liq) 20 mg DAILY@1900 PEG Last administered on 10/31/16t 18:28; Start 03/12/16 at 19:00 Warfarin Sodium (Coumadin) 1 mg ONCE PO Last administered on 03/21/16at 16:24; Start 03/21/16 at 16:00; Stop 03/21/16 at 21:00; Status DC Warfarin Sodium (Coumadin) 1 mg ONCE PO Last administered on 03/22/16at 17:46; Start 03/22/16 at 16:00; Stop 03/22/16 at 21:00; Status DC Insulin Detemir (Levemir Inj) 32 units HS SQ Last administered on 03/22/16at 20: 18; Start 03/22/16 at 21:00; Stop 03/23/16 at 13:35; Status DC Diltiazem HCl (Cardizem Cd) 120 mg DAILY PO Last administered on 04/14/16at 07: 43; Start 03/22/16 at 16:00; Stop 04/14/16 at 14:39; Status DC Hyoscyamine Sulfate (Levsin Liq) 0.125 mg Q4H PRN PEG INCREASED SECRETIONS Last administered on 04/10/16at 08:05; Start 03/22/16 at 15:15; Stop 04/11/16 at 10:24; Status DC Warfarin Sodium (Coumadin) 2 mg ONCE ONCE PO Last administered on 03/23/16at 17: 26; Start 03/23/16 at 16:00; Stop 03/23/16 at 16:01; Status DC Insulin Detemir (Levemir Inj) 34 units HS SQ Last administered on 03/23/16at 20: 01; Start 03/23/16 at 21:00; Stop 03/24/16 at 13:53; Status DC Insulin Detemir (Levemir Inj) 35 units HS SQ Last administered on 10/31/16 21: 35; Start 03/24/16 at 21:00 Insulin Aspart (NovoLOG SUPPLEMENTAL SCALE) 1 ACHS SLIDING SCALE SQ Last administered on 04/16/16at 22:27; Start 03/24/16 at 16:00; Stop 04/19/16 at 17:19 ; Status DC Warfarin Sodium (Coumadin) 1 mg ONCE ONCE PO Last administered on 03/30/16at 16 :59; Start 03/30/16 at 16:00; Stop 03/30/16 at 16:01; Status DC Potassium Chloride (KCl 40 Meq/30 ml Liq) 40 meq ONCE ONCE NG Last administered on 03/31/16at 21:28; Start 03/31/16 at 18:30; Stop 03/31/16 at 18:31 ; Status DC Potassium Bicarb/ Potassium Chloride (K-Lyte Cl Eff) 25 meq ONCE ONCE PEG Last administered on 04/02/16at 12:01; Start 04/02/16 at 13:00; Stop 04/02/16 at 13:01; Status DC Metoprolol Tartrate (Lopressor) 75 mg BID PO Last administered on 05/28/16at 21: 03; Start 04/02/16 at 21:00; Stop 05/29/16 at 11:21; Status DC Potassium Bicarb/ Potassium Chloride (K-Lyte Cl Eff) 25 meq ONCE ONCE PEG Last administered on 04/04/16at 14:40; Start 04/04/16 at 12:30; Stop 04/04/16 at 12:31; Status DC Linezolid (Zyvox) 600 mg Q12HR PO Last administered on 04/16/16at 09:11; Start 04/05/16 at 15:00; Stop 04/16/16 at 12:00; Status DC Artificial Tears (Lacrilube Opht Oint) 1 applic Q12HR EACH EYE Last administered on 09/04/16 21:00; Start 04/10/16 at 11:00; Stop 09/05/16 at 14:38 ; Status DC Hyoscyamine Sulfate (Levsin) 0.25 mg Q4H PRN G-TUBE INCREASED SECRETIONS Last administered on 08/31/16 05:02; Start 04/11/16 at 10:30 Diatrizoate Meglum/ Diatrizoate Sod (Md Gastroview Liq) 18 ml ONCE ONCE PO Last administered on 04/12/16at 16:45; Start 04/12/16 at 16:15; Stop 04/12/16 at 16:16; Status DC Warfarin Sodium (Coumadin) 3 mg DAILY@16 PO ; Start 04/13/16 at 16:00; Stop 05/27/16 at 11:51; Status DC Iohexol (Omnipaque 350 Inj) 98 ml STK-MED ONCE IV Last administered on at 21:01; Start 04/12/16 at 21:01; Stop 04/12/16 at 21:02; Status DC Diltiazem HCl (Cardizem Cd) 180 mg DAILY PO ; Start 04/15/16 at 09:00; Stop at 08:50; Status DC Ondansetron HCl (Zofran Inj) 4 mg Q6HR PRN IV PUSH nausea/vomiting Last administered on 08/10/16t 10:16; Start 04/14/16 at 19:45 Diltiazem HCl 60 mg 60 mg QID PO Last administered on 04/25/16at 17:26; Start at 13:00; Stop 04/25/16 at 19:06; Status DC Sodium Chloride 500 ml @ 500 mls/hr BOLUS ONCE IV Last administered on at 09:15; Start 04/15/16 at 09:15; Stop 04/15/16 at 10:14; Status DC Potassium Chloride/Dextrose/ Sodium Chloride (KCl Inj/D5W-NS 1000 ml Inj) 1,005 ml @ 100 mls/hr Q10H3M IV Last administered on 04/15/16at 21:03; Start at 11:00; Stop 04/16/16 at 09:09; Status DC Enoxaparin Sodium (Lovenox Inj) 90 mg Q12H SQ Last administered on 04/16/16at 21 :12; Start 04/16/16 at 09:00; Stop 04/17/16 at 10:37; Status DC Water 200 ml 200 ml Q4HR TUBE Last administered on 11/01/16 08:00; Start 04/16 at 12:00 Sodium Chloride 1,000 ml @ 84 mls/hr [id number] IV Last administered on at 08:38; Start 04/16/16 at 10:00; Stop 04/20/16 at 12:04; Status DC Ceftriaxone Sodium/Sodium Chloride (Rocephin Inj/NS Inj) 100 ml @ 200 mls/hr Q24H IV Last administered on 05/02/16at 13:19; Start 04/16/16 at 12:00; Stop 05/03/16 at 12:06; Status DC Acetaminophen/ Hydrocodone Bitart (Maxwell 5-325 Mg) 1 tab Q6HR PEG Last administered on 09/17/16t 06:42; Start 04/18/16 at 18:00; Stop 09/17/16 at 09:17 ; Status DC Lactulose (Lactulose Liq) 30 ml NOW ONCE PEG Last administered on 04/19/16at 17 :21; Start 04/19/16 at 17:30; Stop 04/19/16 at 17:31; Status DC Lactulose (Lactulose Liq) 30 ml DAILY PEG Last administered on 05/26/16at 08:14 ; Start 04/20/16 at 09:00; Stop 05/27/16 at 11:39; Status DC Potassium Bicarb/ Potassium Chloride (K-Lyte Cl Eff) 50 meq ONCE ONCE PO Last administered on 04/20/16at 05:52; Start 04/20/16 at 05:45; Stop 04/20/16 at 05:46; Status DC Furosemide (Lasix Inj) 20 mg ONCE ONCE IV PUSH Last administered on 04/20/16at 17:35; Start 04/20/16 at 12:00; Stop 04/20/16 at 12:06; Status DC Insulin Aspart (NovoLOG SUPPLEMENTAL SCALE) 1 ACHS SLIDING SCALE SQ Last administered on 06/02/16at 12:10; Start 04/20/16 at 16:00; Stop 06/02/16 at 21: 44; Status DC Dextrose (D50w (Vial) Inj) 25 ml UNSCH PRN IV HYPOGLYCEMIA-SEE COMMENTS; Start 04/20/16 at 12:00 Glucagon (Glucagon Inj) 1 mg UNSCH PRN IM/SQ HYPOGLYCEMIA-SEE COMMENTS; Start 04/20/16 at 12:00 Lactobacillus Acidophilus (Lactinex) 1 tab Q12HR PEG Last administered on 06/06at 21:34; Start 04/22/16 at 09:00; Stop 06/07/16 at 09:32; Status DC Furosemide (Lasix Inj) 20 mg Q12H IV PUSH Last administered on 04/24/16at 08:52 ; Start 04/22/16 at 09:00; Stop 04/24/16 at 09:25; Status DC Potassium Bicarb/ Potassium Chloride (K-Lyte Cl Eff) 25 meq Q12HR TUBE Last administered on 05/27/16at 08:17; Start 04/22/16 at 09:00; Stop 05/27/16 at 11:51 ; Status DC Albumin Human (Albumin 25% Inj) 12.5 gm Q12H IV Last administered on 04/24/16at 08:46; Start 04/22/16 at 09:00; Stop 04/24/16 at 09:25; Status DC Furosemide (Lasix Inj) 20 mg DAILY IV PUSH Last administered on 05/08/16at 09: 01; Start 04/25/16 at 09:00; Stop 05/08/16 at 11:06; Status DC Albumin Human (Albumin 25% Inj) 12.5 gm DAILY IV Last administered on at 09:02; Start 04/25/16 at 10:00; Stop 05/08/16 at 11:06; Status DC Furosemide (Lasix Inj) 40 mg ONCE ONCE IV PUSH Last administered on 04/25/16at 18:15; Start 04/25/16 at 18:15; Stop 04/25/16 at 18:16; Status DC Albuterol/ Ipratropium (Duoneb Neb) 1 ampule Q6HR NEB NEB Last administered on 04/27/16at 15:52; Start 04/25/16 at 18:30; Stop 04/27/16 at 19:45; Status DC Ipratropium [place] (Atrovent Neb) 0.5 mg Q6HR NEB NEB Last administered on at 16:51; Start 04/25/16 at 22:00; Stop 04/27/16 at 16:44; Status DC Levalbuterol HCl (Xopenex Neb) 0.31 mg Q4HR NEB NEB Last administered on at 23:48; Start 04/25/16 at 20:00; Stop 04/27/16 at 16:43; Status DC Levalbuterol HCl (Xopenex Neb) 0.31 mg Q2HR NEB PRN NEB SHORTNESS OF BREATH; Start 04/25/16 at 18:45; Stop 04/28/16 at 10:50; Status DC Diltiazem HCl (Cardizem) 90 mg QID PEG Last administered on 07/17/16at 09:27; Start 04/25/16 at 21:00; Stop 07/17/16 at 17:52; Status DC Diltiazem HCl (Cardizem) 30 mg NOW ONCE PEG Last administered on 04/25/16at 21: 36; Start 04/25/16 at 19:15; Stop 04/25/16 at 19:16; Status DC Levalbuterol HCl (Xopenex Neb) 0.31 mg Q8HR NEB NEB ; Start 04/28/16 at 00:00; Stop 04/28/16 at 10:50; Status DC Levalbuterol HCl (Xopenex Neb) 0.63 mg Q4HR NEB PRN NEB SHORTNESS OF BREATH Last administered on 05/04/16at 15:26; Start 04/28/16 at 11:00; Stop 05/04/16 at 00:51; Status DC Levalbuterol HCl (Xopenex Neb) 0.63 mg Q8HR NEB NEB Last administered on 05/04at 00:07; Start 04/28/16 at 16:00; Stop 05/04/16 at 00:50; Status DC Polyethylene Glycol/ Electrolytes 4000 ml 4,000 ml ONCE ONCE PO Last administered on 05/05/16at 08:10; Start 05/05/16 at 08:45; Stop 05/05/16 at 08 :46; Status DC Cefazolin Sodium/ Dextrose 50 ml @ 100 mls/hr ONCE ONCE IV ; Start 05/06/16 at 14:00; Stop 05/06/16 at 14:29; Status DC Metronidazole 100 ml @ 100 mls/hr ONCE ONCE IV Last administered on at 14:00; Start 05/06/16 at 14:00; Stop 05/06/16 at 14:59; Status DC Ceftriaxone Sodium/Sodium Chloride (Rocephin Inj/NS Inj) 100 ml @ 200 mls/hr Q24H IV Last administered on 06/09/16at 12:36; Start 05/03/16 at 12:00; Stop 06/10/16 at 12:48; Status DC Levalbuterol HCl (Xopenex Neb) 0.63 mg Q8HR NEB NEB Last administered on 05/05at 08:00; Start 05/04/16 at 00:49; Stop 05/05/16 at 08:07; Status DC Levalbuterol HCl (Xopenex Neb) 0.63 mg Q4HR NEB PRN NEB SHORTNESS OF BREATH Last administered on 10/18/16 15:44; Start 05/05/16 at 12:00 Levalbuterol HCl (Xopenex Neb) 0.63 mg Q8HR NEB NEB Last administered on 05/08at 23:56; Start 05/05/16 at 08:15; Stop 05/09/16 at 08:15; Status DC Potassium Bicarb/ Potassium Chloride (K-Lyte Cl Eff) 25 meq DAILY TUBE Last administered on 11/01/16 08:45; Start 05/28/16 at 09:00 Aspirin (Aspirin) 325 mg DAILY TUBE Last administered on 11/01/16 08:45; Start 05/27/16 at 11:40 Docusate Sodium (Colace Liq) 100 mg DAILY PRN PO constipation Last administered on 08/16/16 21:09; Start 05/27/16 at 11:45; Stop 08/31/16 at 09:00 ; Status DC Metoprolol Tartrate (Lopressor) 50 mg BID PO Last administered on 08/23/16 09: 03; Start 05/29/16 at 21:00; Stop 08/23/16 at 15:33; Status DC Acetaminophen/ Hydrocodone Bitart (Maxwell 5-325 Mg) 1 tab Q6H PRN TUBE BREAKTHROUGH PAIN Last administered on 08/02/16 15:11; Start 06/03/16 at 03:00 ; Stop 09/17/16 at 14:33; Status DC Insulin Aspart (NovoLOG SUPPLEMENTAL SCALE) 1 ACHS SLIDING SCALE SQ Last administered on 06/06/16at 21:35; Start 06/03/16 at 07:00; Stop 06/07/16 at 12 :24; Status DC Lactobacillus Acidophilus (Lactinex) 1 tab TID PEG Last administered on 09:13; Start 06/07/16 at 13:00; Stop 10/13/16 at 12:08; Status DC Insulin Aspart 1 1 AC BREAKFAST SQ Last administered on 10/28/16 06:13; Start 06/08/16 at 07:00 Ceftriaxone Sodium/Sodium Chloride (Rocephin Inj/NS Inj) 100 ml @ 200 mls/hr Q24H IV Last administered on 07/28/16 12:19; Start 06/10/16 at 12:00; Stop 07/29/16 at 13:30; Status DC Heparin Sodium (Porcine) (Heparin Inj) 5,000 units Q12HR SQ Last administered on 06/11/16at 00:58; Start 06/10/16 at 14:15; Stop 06/11/16 at 06:21; Status DC Heparin Sodium (Porcine) (Heparin Inj) 5,000 units Q8HR SQ Last administered on 11/01/16 05:38; Start 06/11/16 at 14:00 Diltiazem HCl (Cardizem) 30 mg QID PEG Last administered on 08/16/16 08:31; Start 07/17/16 at 18:00; Stop 08/16/16 at 12:06; Status DC Bacitracin 1 applic 1 applic BID TOP Last administered on 11/01/16 08:49; Start 07/20/16 at 10:00 Lactated Ringer's 1,000 ml @ 30 mls/hr Q24H IV ; Start 07/21/16 at 17:45; Stop 08/14/16 at 12:08; Status DC Sodium Chloride (NS 500 ml Inj) 500 ml @ 30 mls/hr [id number] IV ; Start 07/21/16 at 17:45; Stop 07/22/16 at 17:44; Status DC Insulin Human Regular (NovoLIN R INJ) See Protocol Table ... UNSCH X1 PRN SQ SEE PROTOCOL; Start 07/21/16 at 17:45; Stop 07/22/16 at 17:44; Status DC Metoprolol Tartrate (Lopressor) 25 mg UNSCH X1 PRN PO SEE LABEL COMMENTS; Start 07/21/16 at 17:45; Stop 07/22/16 at 17:44; Status DC Lidocaine/ Epinephrine (Xylocaine-Epi 1%-1:100,000 Inj) 40 ml STK-MED ONCE .ROUTE Last administered on 07/22/16 10:56; Start 07/22/16 at 10:04; Stop at 10:05; Status DC Ketamine HCl (Ketalar Inj) 500 mg STK-MED ONCE .ROUTE ; Start 07/22/16 at 10:50; Stop 07/22/16 at 10:51; Status DC Propofol 600 mg 600 mg STK-MED ONCE IV ; Start 07/22/16 at 12:00; Stop 07/23/16 at 14:36; Status DC Dextrose 1,000 ml @ 40 mls/hr Q24H ONCE IV Last administered on 07/28/16 14:33 ; Start 07/28/16 at 14:00; Stop 07/29/16 at 13:59; Status DC Ampicillin Sodium/ Sulbactam Sodium/ Sodium Chloride (Unasyn Inj/NS Inj) 100 ml @ 200 mls/hr Q6H IV Last administered on 08/01/16 12:30; Start 07/29/16 at 14: 00; Stop 08/01/16 at 14:13; Status DC Ondansetron HCl 4 mg 4 mg ONCE ONCE IV PUSH Last administered on 07/30/16 02: 46; Start 07/30/16 at 00:30; Stop 07/30/16 at 00:33; Status DC Lactated Ringer's 1,000 ml @ 30 mls/hr Q24H IV ; Start 07/30/16 at 06:00; Stop 08/14/16 at 12:09; Status DC Sodium Chloride (NS 500 ml Inj) 500 ml @ 30 mls/hr [id number] IV ; Start 07/30/16 at 06:00; Stop 07/31/16 at 05:59; Status DC Pantoprazole Sodium (Protonix Inj) 40 mg Q12H IV PUSH Last administered on 10/31 21:35; Start 07/30/16 at 10:15 Propofol 200 mg 200 mg STK-MED ONCE IV ; Start 07/30/16 at 09:41; Stop 07/30/16 at 10:19; Status DC Piperacillin Sod/ Tazobactam Sod (Zosyn 4.5 Gm Premix) 100 ml @ 200 mls/hr Q6H IV Last administered on 08/07/16 09:37; Start 08/01/16 at 16:00; Stop at 16:10; Status DC Linezolid (Zyvox) 600 mg Q12HR PO Last administered on 08/22/16 09:10; Start at 21:00; Stop 08/22/16 at 15:55; Status DC Sodium Chloride ([place]) 1 spray BID NASAL Last administered on 08:48; Start 08/01/16 at 21:00 Metronidazole 500 mg 500 mg Q8H PO Last administered on 08/08/16 08:28; Start 08/07/16 at 16:00; Stop 08/08/16 at 16:10; Status DC Sodium Chloride (NS 1000 ml Inj) 1,000 ml @ 42 mls/hr [id number] IV Last administered on 08/14/16 12:44; Start 08/14/16 at 12:00; Stop 08/15/16 at 10:56 ; Status DC Fentanyl Citrate (fentaNYL INJ) 250 mcg STK-MED ONCE .ROUTE Last administered on 08/14/16 15:36; Start 08/14/16 at 15:36; Stop 08/14/16 at 15:37; Status DC Iohexol (Omnipaque 350 Inj) 30 ml STK-MED ONCE G-TUBE Last administered on 08/14 15:45; Start 08/14/16 at 15:52; Stop 08/14/16 at 15:53; Status DC Diltiazem HCl (Cardizem) 30 mg QID PEG Last administered on 11/01/16 08:45; Start 08/16/16 at 13:00 Polyethylene Glycol (Miralax) 17 gm ONCE ONCE PEG Last administered on 11:32; Start 08/17/16 at 12:00; Stop 08/17/16 at 12:01; Status DC Amoxicillin 500 mg 500 mg Q8HR PO Last administered on 11/01/16 05:38; Start 08/22/16 at 22:00 Cefepime HCl/ Sodium Chloride (Maxipime Inj/NS Inj) 100 ml @ 200 mls/hr Q8H IV Last administered on 09/03/16 10:46; Start 08/23/16 at 16:00; Stop 09/03/16 at 15:02; Status DC Metoprolol Tartrate (Lopressor) 75 mg BID PO Last administered on 09/13/16 08: 42; Start 08/23/16 at 21:00; Stop 09/13/16 at 13:09; Status DC Docusate Sodium (Colace Liq) 100 mg BID PO Last administered on 11/01/16 08:45 ; Start 08/30/16 at 21:00 Sennosides (Senokot) 17.2 mg DAILY PO Last administered on 09/25/16 08:36; Start 08/30/16 at 14:00; Stop 09/25/16 at 16:09; Status DC Lactulose (Lactulose Liq) 30 ml DAILY PO Last administered on 11/01/16 08:45; Start 09/02/16 at 15:30 Artificial Tears (Tears Naturale Opth Soln) 1 drop BID EACH EYE Last administered on 11/01/16 08:49; Start 09/05/16 at 21:00 Midazolam HCl (Versed Inj) 2 mg STK-MED ONCE .ROUTE Last administered on 11:37; Start 09/09/16 at 11:37; Stop 09/09/16 at 11:38; Status DC Fentanyl Citrate (fentaNYL INJ) 100 mcg STK-MED ONCE .ROUTE Last administered on 09/09/16 11:38; Start 09/09/16 at 11:38; Stop 09/09/16 at 11:39; Status DC Iohexol (Omnipaque 350 Inj) 20 ml STK-MED ONCE G-TUBE Last administered on 09/09 11:50; Start 09/09/16 at 11:50; Stop 09/09/16 at 12:15; Status DC Metoprolol Tartrate (Lopressor) 50 mg BID PO Last administered on 10/31/16 21: 35; Start 09/13/16 at 21:00 Acetaminophen/ Hydrocodone Bitart (Maxwell 5-325 Mg) 1 tab Q6H PEG ; Start at 11:00; Stop 09/17/16 at 14:25; Status DC Acetaminophen/ Hydrocodone Bitart (Maxwell 5-325 Mg) 1 tab DAILY@1600 PO ; Start 09/17/16 at 16:00; Stop 09/17/16 at 16:00; Status DC Morphine Sulfate (Morphine Inj) 1 mg Q24H PRN IV PUSH dressing change 30 min before Last administered on 10/22/16 02:00; Start 09/17/16 at 14:30 Acetaminophen/ Hydrocodone Bitart (Maxwell 5-325 Mg) 1 tab DAILY@0000 PO Last administered on 09/17/16 23:43; Start 09/18/16 at 00:00; Stop 09/20/16 at 12:46; Status DC Acetaminophen/ Hydrocodone Bitart (Maxwell 5-325 Mg) 1 tab Q8H PO Last administered on 10/13/16 13:38; Start 09/20/16 at 13:00; Stop 10/13/16 at 18:29 ; Status DC Ketoconazole (Nizoral 2% Cream) 1 applic Q12HR TOPICAL Last administered on 21:35; Start 09/24/16 at 21:00 Sennosides (Senna Liq) 8.8 mg DAILY@1600 PO Last administered on 10/31/16 16: 57; Start 09/25/16 at 17:00 Sodium Biphosphate/ Sodium Phosphate (Fleets Enema (Adult)) 133 ml UNSCH PRN MI CONSTIPATION; Start 09/25/16 at 16:00 Bisacodyl (Dulcolax Supp) 10 mg DAILY PRN RECTAL CONSTIPATION Last administered on 10/20/16 12:53; Start 09/26/16 at 15:30 Bisacodyl (Dulcolax Supp) 10 mg ONCE ONCE RECTAL Last administered on 16:10; Start 09/26/16 at 15:30; Stop 09/26/16 at 15:31; Status DC Cyclobenzaprine HCl (Flexeril) 5 mg Q8H PO Last administered on 10/13/16 13:37 ; Start 10/13/16 at 12:15; Stop 10/13/16 at 18:27; Status DC Magnesium Hydroxide (Milk Of Magnesia Liq) 30 ml DAILY PRN PO constipation Last administered on 10/20/16 12:54; Start 10/13/16 at 14:30 Acetaminophen/ Hydrocodone Bitart (Maxwell 5-325 Mg) 1 tab Q6H PRN PO PAIN SCALE 1 TO 10; Start 10/13/16 at 18:30; Stop 10/13/16 at 18:30; Status DC Acetaminophen/ Hydrocodone Bitart (Maxwell 5-325 Mg) 1 tab Q6H PRN PO PAIN SCALE 1 TO 10 Last administered on 11/01/16 05:38; Start 10/13/16 at 18:45 Cyclobenzaprine HCl (Flexeril) 5 mg HS PRN PO muscle relaxant Last administered on 10/22/16 21:17; Start 10/14/16 at 14:15 Fentanyl Citrate (fentaNYL INJ) 100 mcg STK-MED ONCE .ROUTE ; Start 10/23/16 at 16:51; Stop 10/23/16 at 16:52; Status DC Glycerin (Glycerin Adult Supp) 2 gm ONCE ONCE RECTAL Last administered on 15:29; Start 10/26/16 at 15:00; Stop 10/26/16 at 15:01; Status DC Nitrofurantoin Macrocrystals (Macrobid) 100 mg BIDPC PO Last administered on 09:36; Start 10/26/16 at 15:00; Stop 10/29/16 at 14:59; Status DC Date of Insertion: Oct 12, 2016 A/P Assessment and Plan A/P 60-year-old male with: CVA Paraplegia 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 Keppra continued (for seizures) Supportive Care USP care needed for chronic and profound neurologic deficits. Recovery is not expected to occur. Medicaid with SSI pending. Recent Fever- now has resolved Constipation Resolved Clogged PEG tube Has occured on 10/14 and 10/23 Follow for recurrence Continue Flushes GI if replacement needed Chronic respiratory failure Related to CVA Continue trach management PRN Levsin pulmonary following. 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 Frequent turns Colostomy declined by family (inability to divert feces in this chronic setting increases risks with ulcer and for recurrence of ulcers) Chronic Arevalo Follow for UTIs Hx of Gastric Ulcer Follow clinically PPI Monitor H/H periodically. FEN: Continue Nepro tube feeds. Appreciate dietary recommendations. Continue free water flushes. Supplement potassium. DVT prophylaxis: SCDs. Discharge Planning dc planning to SNF-no funding- SSI pending. Medardo Au MD Nov 01, 2016 11:52
--- NOTE | 2016-11-01 14:05 | HHI.PR ---
Subjective Remarks opens eyes on o2 , o2 SAT 96 on T PIECE Objective Vital Signs Date Time Temp Pulse Resp B/P Pulse Ox O2 Delivery O2 Flow Rate FiO2 11/01/16 12:00 98.1 85 16 109/68 97 11/01/16 10:00 100 T-piece 28 11/01/16 10:00 100 T-piece 28 11/01/16 08:00 98.1 83 18 127/77 99 11/01/16 04:00 T-Piece 28 11/01/16 04:00 97.5 85 18 124/74 98 11/01/16 00:00 97.3 76 18 101/68 98 11/01/16 00:00 T-Piece 28 10/31/16 20:00 96.8 87 18 151/83 99 10/31/16 20:00 T-Piece 28 10/31/16 17:45 99 T-piece 6.00 28 10/31/16 17:09 97.1 79 20 101/63 99 10/31/16 15:42 17 I/O 10/31/16 10/31/16 10/31/16 11/01/16 11/01/16 11/01/16 07:00 15:00 23:00 07:00 15:00 23:00 Intake Total 1744 ml 505 ml Output Total 400 ml 1700 ml 800 ml Balance -400 ml 44 ml -295 ml Tube Feeding 1744 ml 505 ml Output Urine Total 400 ml 1700 ml 800 ml # Bowel Movements 1 2 Procedures 01/02/16 PEG placement 01/02/16 tracheostomy 07/22/2016 Wide excision of sacral skin wound, biopsy of the cavity lining and debridement. PEG tube replacement 07/29/16 Objective Remarks GENERAL: SKIN: Warm and dry. HEAD: Atraumatic. Normocephalic. EYES: Pupils equal and round. No scleral icterus. No injection or drainage. ENT: No nasal bleeding or discharge. Mucous membranes pink and moist. NECK: Trachea midline. No JVD. TRACH. [place] CARDIOVASCULAR: Regular rate and rhythm. RESPIRATORY: No accessory muscle use. Clear to auscultation. Breath sounds equal bilaterally. GASTROINTESTINAL: Abdomen soft, non-tender, nondistended. Hepatic and splenic margins not palpable. MUSCULOSKELETAL: Extremities without clubbing, cyanosis, or edema. No obvious deformities. NEUROLOGICAL: Awake and alert. No obvious cranial nerve deficits. Motor grossly within normal limits. Five out of 5 muscle strength in the arms and legs. Normal speech. PSYCHIATRIC: Appropriate mood and affect; insight and judgment normal. Assessment and Plan Assessment and Plan impression respiratory failure CVA S/P TRACHEOSTOMY PLAN O2 NEEDED PULM. TOILET Brandon Taylor MD Nov 01, 2016 14:05
[2016-11-01] MEDS: SENNOSIDES SYRUP 8.8 MG/5 ML CUP PO SCH (16:50)
[2016-11-01] MEDS: PARoxetine HCL SUSP 20 MG/10 ML UDC PEG SCH (18:47)
[2016-11-01] MEDS: INSULIN DETEMIR 100 UNITS/ML VIAL SQ SCH (21:02)
[2016-11-02] VITALS (9 sets, daily range): BP systolic 104–133; BP diastolic 69–78; PULSE 74–90; RESP 12–22; TEMP 95.8–97.8; O2SAT 96–100
[2016-11-02] MEDS: FREE WATER TUBE SCH ×6 (04:00→21:34)
[2016-11-02] MEDS: AMOXICILLIN (TRIHYDRATE) 500 MG CAP PO SCH ×3 (05:50→21:32)
[2016-11-02] MEDS: ACETIC ACID 0.25% SOLN 1000 ML IRR BTL IRRIGATION SCH ×3 (05:51→21:47)
[2016-11-02] MEDS: ACETAMINOPHEN/HYDROcodone 325 MG/5 MG TAB PO PRN (05:51)
[2016-11-02] MEDS: HEPARIN SODIUM - SQ 10,000 UNITS/ML VIAL SQ SCH ×3 (05:51→21:33)
[2016-11-02] MEDS: INSULIN ASPART SUPPLEMENTAL SCALE SQ SCH (06:34)
[2016-11-02] MEDS: ASPIRIN 325 MG TAB TUBE SCH (08:33)
[2016-11-02] MEDS: LACTULOSE SYRUP 20 GM/30 ML CUP PO SCH (08:33)
[2016-11-02] MEDS: DOCUSATE SODIUM 100 MG/10 ML UDC PO SCH ×2 (08:34→21:33)
[2016-11-02] MEDS: POTASSIUM CHLORIDE 25 MEQ EFFERVESCENT TAB TUBE SCH (08:34)
[2016-11-02] MEDS: levETIRAcetam 500 MG/5 ML UDC TUBE SCH ×2 (08:34→21:33)
[2016-11-02] MEDS: METOPROLOL TARTRATE 50 MG TAB PO SCH ×2 (08:34→21:32)
[2016-11-02] MEDS: DILTIAZEM HCL 30 MG TAB PEG SCH ×4 (08:34→21:32)
[2016-11-02] MEDS: BACITRACIN TOP OINT 15 GM TUBE TOP SCH ×2 (08:35→21:34)
[2016-11-02] MEDS: NYSTATIN 100,000 U/GM PWD 15 GM BTL TOPICAL SCH ×2 (08:35→21:34)
[2016-11-02] MEDS: ARTIFICIAL TEARS OPTH SOLN 15 ML BTL EACH EYE SCH ×2 (08:36→21:34)
[2016-11-02] MEDS: SODIUM CHLORIDE 0.65% NASAL SPRAY 45 ML BTL NASAL SCH ×2 (08:36→21:34)
[2016-11-02] MEDS: KETOCONAZOLE 2% CREAM 15 GM TOPICAL SCH ×2 (08:37→21:34)
[2016-11-02] MEDS: PANTOPRAZOLE SODIUM 40 MG VIAL IV PUSH SCH ×2 (10:23→21:33)
--- NOTE | 2016-11-02 12:44 | HHI.PR ---
Subjective Remarks in no acute distress. no change clinically. Objective Vitals Vital Signs Date Time Temp Pulse Resp B/P Pulse Ox O2 Delivery O2 Flow Rate FiO2 11/02/16 12:05 97.0 74 12 104/74 99 11/02/16 11:33 98 T-piece 28 11/02/16 08:15 95.8 90 12 131/73 100 11/02/16 04:00 97.6 89 18 133/76 99 11/02/16 00:47 99 T-piece 6.00 28 11/02/16 00:00 97.5 82 18 105/69 96 11/01/16 21:00 T-Piece 28 11/01/16 20:00 95 11/01/16 20:00 97.3 104 18 125/73 99 11/01/16 16:00 97.6 94 16 109/66 99 I/O 11/01/16 11/01/16 11/01/16 11/02/16 11/02/16 11/02/16 07:00 15:00 23:00 07:00 15:00 23:00 Intake Total 505 ml 200 ml 1866 ml Output Total 800 ml 800 ml Balance -295 ml 200 ml 1066 ml Tube Feeding 505 ml 1466 ml Other 200 ml 400 ml Output Urine Total 800 ml 800 ml # Bowel Movements 1 Imaging Last Impressions Tube Change 10/23/16 0000 Signed Impressions: Service Date/Time: Sunday, October 23, 2016 16:34 - CONCLUSION: Uncomplicated gastrojejunostomy tube exchange as above. Existing tube was patent with some luminal narrowing. The balloon port was damaged and leaking, however. Bobby Gray MD Chest X-Ray 10/18/16 0000 Signed Impressions: Service Date/Time: Tuesday, October 18, 2016 19:17 - CONCLUSION: 1. Minimal right perihilar streakiness consistent with probable atelectasis. 2. Elevation of the right hemidiaphragm. 3. Tracheostomy tube in good position above the geno. Eduardo Valenzuela MD Abdomen X-Ray 08/31/16 0000 Signed Impressions: Service Date/Time: Wednesday, August 31, 2016 16:36 - CONCLUSION: 1. No acute findings. Mild constipation. Durga Dotson MD Abdomen/Pelvis CT 04/12/16 0000 Signed Impressions: Service Date/Time: Tuesday, April 12, 2016 20:52 - CONCLUSION: 1. 6.4 cm necrotic mass or abscess in the soft tissues posteriorly just below the sacrum associated with some bony destructive change of the lower most sacrum and coccyx with inflammatory changes extending into the ischiorectal fossa and into the presacral retroperitoneum predominantly on the left side. There is associated fairly marked mural thickening of the anal verge and rectum. 2. There is gastrostomy and Arevalo catheter present. Stable abdominal aortic aneurysm. Durga Dotson MD Head Magnetic Resonance Angiography 03/05/16 0000 Signed Impressions: Service Date/Time: Saturday, March 05, 2016 09:26 - CONCLUSION: Persistent high-grade subtotal occlusive stenotic lesions in the distal right vertebral artery and proximal basilar artery with significant improvement in flow and recanalization following initial presentation of thrombosis. Stable interstitial circulation without significant stenosis. 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 There is decreasing restricted diffusion and increasing loss of volume characteristic of a subacute to chronic infarct. No evidence of acute infarct, acute hemorrhage mass or edema. Ernesto Kulkarni MD Head CT 01/16/16 0000 Signed Impressions: Service Date/Time: Saturday, January 16, 2016 10:51 - CONCLUSION: No extensive low density in the brainstem colin more prominent in the right the left extending into the right middle cerebellar peduncle consistent with brainstem infarct nonhemorrhagic acute Wellington West MD Neck Magnetic Resonance Angiography 12/22/15 1445 Signed Impressions: Service Date/Time: Tuesday, December 22, 2015 09:22 - CONCLUSION: Variant origin of the left vertebral artery from the aortic arch. No evidence of carotid stenosis. Glen Zamora MD Head/Brain Mag Res Venography 12/22/15 0000 Signed Impressions: Service Date/Time: Tuesday, December 22, 2015 09:22 - CONCLUSION: Normal MRV. Jonel Jones Jr., MD Objective Remarks GENERAL: on Trach- in no apparent distress. CARDIOVASCULAR: Regular rate and regular rhythm without murmurs, gallops, or rubs. RESPIRATORY: Clear to auscultation. Breath sounds equal bilaterally. No wheezes , rales, or rhonchi. GASTROINTESTINAL: Abdomen soft, non-tender,distended. hypoactive bowel sounds-PEG in place MUSCULOSKELETAL: Extremities without clubbing, cyanosis, or edema. NEURO: awake Procedures 01/02/16 PEG placement 01/02/16 tracheostomy 07/22/2016 Wide excision of sacral skin wound, biopsy of the cavity lining and debridement. PEG tube replacement 07/29/16 VAC changes- M-W-F 4/5- GJ tube replacement Medications and IVs Current Medications IV Flush (NS Flush) 2 ml UNSCH PRN IVF FLUSH AFTER USING IV ACCESS Last administered on 09/28/16t 21:18; Start 12/21/15 at 06:00 Ondansetron HCl (Zofran Inj) 4 mg STK-MED ONCE .ROUTE ; Start 12/21/15 at 06:22; Stop 12/21/15 at 06:23; Status DC Ondansetron HCl (Zofran Inj) 4 mg ONCE ONCE IV PUSH Last administered on at 06:43; Start 12/21/15 at 06:30; Stop 12/21/15 at 06:31; Status DC Diltiazem HCl 20 mg 20 mg ONCE ONCE IV Last administered on 12/21/15at 06:42; Start 12/21/15 at 06:30; Stop 12/21/15 at 06:31; Status DC Diltiazem HCl/ Sodium Chloride (Cardizem Inj/NS Inj) 125 ml @ 0 mls/hr TITRATE IV Last administered on 12/21/15at 06:47; Start 12/21/15 at 06:30; Stop 12/21/15 at 13:00; Status DC Acetaminophen (Tylenol) 650 mg ONCE ONCE PO ; Start 12/21/15 at 06:45; Stop 12/20 at 06:46; Status DC Lorazepam (Ativan Inj) 1 mg ONCE ONCE IV PUSH Last administered on 12/21/15at 07 :22; Start 12/21/15 at 07:15; Stop 12/21/15 at 07:16; Status DC Etomidate (Amidate Inj) 40 mg STK-MED ONCE .ROUTE Last administered on at 08:17; Start 12/21/15 at 07:37; Stop 12/21/15 at 07:38; Status DC Succinylcholine Chloride 200 mg 200 mg STK-MED ONCE .ROUTE Last administered on 12/21/15at 08:18; Start 12/21/15 at 07:37; Stop 12/21/15 at 07:38; Status DC Propofol (Diprivan 1000 Mg/100ml Inj) 100 ml @ As Directed STK-MED ONCE .ROUTE Last administered on 12/21/15at 08:19; Start 12/21/15 at 07:46; Stop 12/21/15 at 07:47; Status DC Propofol (Diprivan 1000 Mg/100ml Inj) search Sets for Drip. NOW PRN IV SEDATION Last administered on 12/22/15at 06:25; Start 12/21/15 at 08:30; Stop 12/28 at 15:43; Status DC Gadodiamide (Omniscan Pf Inj) 18 ml STK-MED ONCE IV Last administered on at 10:11; Start 12/21/15 at 10:11; Stop 12/21/15 at 10:12; Status DC Pantoprazole Sodium (Protonix Inj) 40 mg DAILY IV Last administered on at 07:39; Start 12/21/15 at 13:00; Stop 01/03/16 at 10:10; Status DC Albuterol/ Ipratropium (Duoneb Neb) 1 ampule Q6HR NEB INH Last administered on 12/25/15at 07:51; Start 12/21/15 at 13:00; Stop 12/25/15 at 13:00; Status DC Miscellaneous Information 1 [id number] Last administered on 12/21/15at 13:00; Start 12/21/15 at 13:00; Stop 01/12/16 at 11:47; Status DC Chlorhexidine Gluconate (Chlorhexidine 2% Cloth) 3 pack Taper DAILY@04 TOP Last administered on 01/11/16at 04:10; Start 12/22/15 at 04:00; Stop 01/12/16 at 11:47; Status DC Chlorhexidine Gluconate 3 pack 3 pack UNSCH PRN TOP HYGIENIC CARE; Start at 13:00; Stop 01/12/16 at 11:47; Status DC Sodium Chloride (NS 1000 ml Inj) 1,000 ml @ 75 mls/hr [id number] IV Last administered on 12/22/15at 17:00; Start 12/21/15 at 13:00; Stop 12/22/15 at 19:01; Status DC Dextrose (D50w (Vial) Inj) 25 ml UNSCH PRN IV PUSH HYPOGLYCEMIA-SEE COMMENTS; Start 12/21/15 at 13:00; Stop 04/19/16 at 17:19; Status DC Glucagon (Glucagon Inj) 1 mg UNSCH PRN OTHER HYPOGLYCEMIA-SEE COMMENTS; Start 12/21/15 at 13:00; Stop 04/19/16 at 17:19; Status DC Insulin Human Regular (NovoLIN R SUPPLEMENTAL SCALE) 1 Q6H SQ Last administered on 01/04/16at 06:31; Start 12/21/15 at 13:00; Stop 01/04/16 at 10:05 ; Status DC Levetriacetam (Keppra) 500 mg Q12HR PO Last administered on 12/27/15at 09:00; Start 12/21/15 at 13:45; Stop 12/27/15 at 09:44; Status DC Heparin Sodium (Porcine) (Heparin Inj) 5,000 units BID SQ Last administered on 12/22/15at 20:52; Start 12/21/15 at 21:00; Stop 12/23/15 at 08:32; Status DC Warfarin Sodium (Coumadin) 7.5 mg ONCE ONCE PO Last administered on 12/21/15at 21:43; Start 12/21/15 at 21:00; Stop 12/21/15 at 21:01; Status DC Warfarin Sodium (Coumadin) 5 mg DAILY@16 PO Last administered on 12/23/15at 16:00 ; Start 12/22/15 at 16:00; Stop 12/26/15 at 09:29; Status DC Patient Medication Teaching (Coumadin Booklet) 1 ONCE ONCE XX Last administered on 12/21/15at 20:15; Start 12/21/15 at 20:15; Stop 12/21/15 at 20:16; Status DC Chlorhexidine Gluconate (Peridex 0.12% Liq) 15 ml BID@08,20 MT Last administered on 01/12/16at 08:00; Start 12/22/15 at 20:00; Stop 01/12/16 at 11:47 ; Status DC Gadodiamide 20 ml 20 ml STK-MED ONCE IV Last administered on 12/22/15at 09:55; Start 12/22/15 at 09:55; Stop 12/22/15 at 09:56; Status DC Pharmacy Profile Note ml @ 0 mls/hr UNSCH OTHER ; Start 12/22/15 at 11:00; Stop 12/22/15 at 19:43; Status DC Sodium Chloride 1,000 ml @ 50 mls/hr Q20H IV Last administered on 12/24/15at 20: 02; Start 12/22/15 at 18:44; Stop 12/25/15 at 11:52; Status DC Pharmacy Profile Note (Coumadin Consult Pharmacy) 0 ml @ 0 mls/hr UNSCH OTHER ; Start 12/22/15 at 19:45; Stop 01/04/16 at 12:25; Status DC Acetaminophen 650 mg 650 mg Q6H PRN PO TEMP > 100 Last administered on at 13:24; Start 12/23/15 at 02:45; Stop 12/30/15 at 15:04; Status DC Potassium Chloride 100 ml @ 50 mls/hr Q2H PRN IV For Potassium 2.8 - 3.2 mEq/L ; Start 12/23/15 at 08:30; Stop 01/09/16 at 11:14; Status DC Potassium Chloride (KCl 20 Meq Premix Inj) 100 ml @ 50 mls/hr Q2H PRN IV For Potassium 2.8 - 3.2 mEq/L; Start 12/23/15 at 08:30; Stop 01/09/16 at 11:14; Status DC Potassium Chloride 40 meq 40 meq UNSCH PRN PO/TUBE For Potassium 3.3 - 3.5 mEq/ L; Start 12/23/15 at 08:30; Stop 01/09/16 at 11:14; Status DC Potassium Chloride 100 ml @ 25 mls/hr UNSCH PRN IV For Potassium 3.3 - 3.5 mEq /L; Start 12/23/15 at 08:30; Stop 01/09/16 at 11:14; Status DC Potassium Chloride 100 ml @ 50 mls/hr Q2H PRN IV For Potassium 3.3 - 3.5 mEq/L ; Start 12/23/15 at 08:30; Stop 01/09/16 at 11:14; Status DC Magnesium Sulfate/ Sodium Chloride (Magnesium Sulfate Inj/NS Inj) 100 ml @ 50 mls/hr UNSCH PRN IV For Magnesium 0.9 - 1.1 mg/dL; Start 12/23/15 at 08:30; Stop 01/09/16 at 11:14; Status DC Magnesium Oxide 800 mg 800 mg UNSCH PRN PO For Magnesium 1.2 - 1.6 mg/dL; Start 12/23/15 at 08:30; Stop 01/09/16 at 11:14; Status DC Magnesium Sulfate/ Sodium Chloride (Magnesium Sulfate Inj/NS Inj) 100 ml @ 50 mls/hr UNSCH PRN IV For Magnesium 1.2 - 1.6 mg/dL; Start 12/23/15 at 08:30; Stop 01/09/16 at 11:14; Status DC Potassium Phosphate 2000 mg 2,000 mg Q4H PRN PO For Phosphorus < 2.5 mg/dL; Start 12/23/15 at 08:30; Stop 01/09/16 at 11:14; Status DC Sodium Phosphate/ Sodium Chloride (Sodium Phosphate Inj/NS 250 ml Inj) 250 ml @ 42 mls/hr UNSCH PRN IV For Phosphorus < 2.5 mg/dL; Start 12/23/15 at 08:30; Stop 01/09/16 at 11:14; Status DC Potassium Chloride (KCl 40 Meq/30 ml Liq) 40 meq UNSCH PRN PO/TUBE SEE LABEL COMMENTS; Start 12/23/15 at 08:30; Stop 01/09/16 at 11:14; Status DC Potassium Phosphate 2000 mg 2,000 mg UNSCH PRN PO/TUBE SEE LABEL COMMENTS; Start 12/23/15 at 08:30; Stop 01/09/16 at 11:14; Status DC Potassium Phosphate 30 mmol/ Sodium Chloride 260 ml @ 42 mls/hr UNSCH PRN IV SEE LABEL COMMENTS; Start 12/23/15 at 08:30; Stop 01/09/16 at 11:14; Status DC Sodium Chloride 1,000 ml @ 75 mls/hr [id number] IV ; Start 12/23/15 at 08:30; Stop 12/23/15 at 08:30; Status DC Piperacillin Sod/ Tazobactam Sod 50 ml @ 100 mls/hr Q6H IV Last administered on 12/30/15at 10:02; Start 12/23/15 at 10:00; Stop 12/30/15 at 14:50; Status DC Vancomycin HCl/ Sodium Chloride (Vancomycin Inj/ NS 250 ml Inj) 250 ml @ 250 mls/hr Q12H IV Last administered on 12/29/15at 09:01; Start 12/24/15 at 08:45; Stop 12/29/15 at 15:33; Status DC Warfarin Sodium (Coumadin) 4 mg DAILY@16 PO Last administered on 12/28/15at 16:00 ; Start 12/26/15 at 16:00; Stop 01/04/16 at 12:25; Status DC Levetriacetam (Keppra Liq) 500 mg Q12HR TUBE Last administered on 11/02/16t 08 :34; Start 12/27/15 at 21:00 Docusate Sodium (Colace Liq) 100 mg Q12HR TUBE Last administered on 01/15/16at 09:01; Start 12/27/15 at 21:00; Stop 04/16/16 at 08:50; Status DC Sennosides (Senna Liq) 8.8 mg DAILY TUBE Last administered on 01/15/16at 09:01 ; Start 12/27/15 at 17:00; Stop 01/15/16 at 20:37; Status DC Bisacodyl (Dulcolax Supp) 10 mg ONCE ONCE RECTAL ; Start 12/27/15 at 16:15; Stop 12/27/15 at 16:15; Status DC Albuterol/ Ipratropium (Duoneb Neb) 1 ampule Q4HR NEB PRN NEB RESPIRATORY DISTRESS Last administered on 12/29/15at 12:17; Start 12/27/15 at 22:00; Stop at 08:16; Status DC Bisacodyl (Dulcolax Supp) 10 mg ONCE ONCE RECTAL ; Start 12/28/15 at 12:00; Stop 12/28/15 at 12:01; Status DC Sodium Chloride (Sodium Chloride) 1 gm BID TUBE Last administered on 12/29/15at 09:02; Start 12/28/15 at 21:00; Stop 12/29/15 at 15:43; Status DC Lactulose (Lactulose Liq) 30 ml DAILY TUBE Last administered on 12/29/15at 09:02 ; Start 12/28/15 at 20:30; Stop 12/29/15 at 15:43; Status DC Levofloxacin (Levaquin) 750 mg DAILY@16 TUBE ; Start 12/29/15 at 16:00; Stop 05/05 at 16:00; Status DC Sodium Chloride (Sodium Chloride) 1 gm DAILY TUBE Last administered on at 07:29; Start 12/30/15 at 09:00; Stop 12/31/15 at 14:08; Status DC Water 200 ml 200 ml Q6HR G-TUBE Last administered on 12/31/15at 04:19; Start 06/05 at 14:45; Stop 12/31/15 at 07:31; Status DC Ceftriaxone Sodium/Sodium Chloride (Rocephin Inj/NS Inj) 100 ml @ 200 mls/hr Q12H IV Last administered on 01/03/16at 02:47; Start 12/30/15 at 15:00; Stop at 10:09; Status DC Acetaminophen (Tylenol 650 Mg/ 20 ml Liq) 650 mg Q6H PRN TUBE TEMP >100.4 Last administered on 10/25/16t 15:13; Start 12/30/15 at 15:15 Lactobacillus Acidophilus (Lactinex Pkt) 1 gm BID TUBE Last administered on at 09:00; Start 12/30/15 at 21:00; Stop 02/10/16 at 14:30; Status DC Enoxaparin Sodium (Lovenox Inj) 90 mg Q12H SQ Last administered on 01/01/16at 21 :57; Start 12/31/15 at 08:00; Stop 01/03/16 at 10:33; Status DC Water (Free Water) 100 ml Q12H G-TUBE ; Start 12/31/15 at 18:00; Stop 12/31/15 at 18:00; Status DC Acetaminophen/ Hydrocodone Bitart ([place] 5-325 Mg) 1 tab Q6H PRN PO PAIN Last administered on 05/26/16at 20:46; Start 12/31/15 at 15:00; Stop 06/02/16 at 21: 44; Status DC Fentanyl Citrate (Sublimaze Inj) 25 mcg Q1H PRN IV PUSH BREAKTHROUGH PAIN; Start 12/31/15 at 15:00; Stop 03/06/16 at 10:03; Status DC Water (Free Water) 200 ml Q8H G-TUBE Last administered on 01/01/16at 17:55; Start 12/31/15 at 18:00; Stop 01/02/16 at 09:56; Status DC Sodium Chloride (Sodium Chloride) 1 gm BID TUBE Last administered on 01/03/16at 07:39; Start 12/31/15 at 21:00; Stop 01/03/16 at 09:08; Status DC Miscellaneous Information Hold Anticoagulation after midni... ONCE ONCE OTHER ; Start 01/01/16 at 10:15; Stop 01/01/16 at 10:29; Status DC Sodium Chloride (NS 1000 ml Inj) 1,000 ml @ 50 mls/hr Q20H IV Last administered on 01/02/16at 12:26; Start 01/01/16 at 18:00; Stop 01/03/16 at 10:07 ; Status DC Midazolam HCl (Versed Inj) 5 mg STK-MED ONCE .ROUTE ; Start 01/02/16 at 12:47; Stop 01/02/16 at 12:48; Status DC Vecuronium [place] (Norcuron 10 Mg Inj) 10 mg STK-MED ONCE .ROUTE ; Start at 12:47; Stop 01/02/16 at 12:48; Status DC Fentanyl Citrate (Sublimaze Inj) 250 mcg ONCE ONCE IV PUSH Last administered on 01/02/16at 15:00; Start 01/02/16 at 15:00; Stop 01/02/16 at 15:01; Status DC Midazolam HCl (Versed Inj) 10 mg ONCE ONCE IV PUSH Last administered on at 15:00; Start 01/02/16 at 15:00; Stop 01/02/16 at 15:01; Status DC Rocuronium [place] (Zemuron Inj) 100 mg BOLUS ONCE IV Last administered on at 15:00; Start 01/02/16 at 15:00; Stop 01/02/16 at 15:01; Status DC Ketamine HCl (Ketalar Inj) 500 mg STK-MED ONCE .ROUTE ; Start 01/02/16 at 14:30 ; Stop 01/02/16 at 14:31; Status DC Propofol 230 mg 230 mg STK-MED ONCE IV ; Start 01/02/16 at 16:51; Stop 01/02/16 at 16:52; Status DC Sodium Chloride (NS 1000 ml Inj) 1,000 ml @ 0 mls/hr Q0M IV ; Start 01/03/16 at 10:15; Stop 01/17/16 at 17:30; Status DC Ranitidine HCl (Zantac Liq) 150 mg Q12HR PO Last administered on 01/17/16at 07: 39; Start 01/04/16 at 09:00; Stop 01/17/16 at 15:23; Status DC Enoxaparin Sodium 90 mg 90 mg Q12HR SQ Last administered on 01/11/16at 10:01; Start 01/04/16 at 09:00; Stop 01/11/16 at 12:35; Status DC Sodium Chloride (NS 500 ml Inj) 500 ml @ 0 mls/hr BOLUS ONCE IV Last administered on 01/03/16at 22:57; Start 01/03/16 at 23:00; Stop 01/03/16 at 23:01 ; Status DC Insulin Aspart (NovoLOG SUPPLEMENTAL SCALE) 1 Q6HR SQ Last administered on at 12:00; Start 01/04/16 at 12:00; Stop 03/24/16 at 13:58; Status DC Potassium Chloride (KCl 40 Meq/30 ml Liq) 40 meq Q4H NG Last administered on at 16:21; Start 01/04/16 at 13:00; Stop 01/04/16 at 17:01; Status DC Warfarin Sodium 5 mg 5 mg DAILY@1600 PO Last administered on 01/09/16at 17:21; Start 01/04/16 at 16:00; Stop 01/10/16 at 10:06; Status DC Pharmacy Profile Note (Coumadin Consult Pharmacy) 0 ml @ 0 mls/hr UNSCH XX ; Start 01/04/16 at 12:30; Stop 04/20/16 at 12:04; Status DC Insulin Detemir (Levemir Inj) 10 units Q12HR SQ Last administered on 01/05/16at 08:00; Start 01/04/16 at 21:00; Stop 01/05/16 at 08:42; Status DC Insulin Detemir (Levemir Inj) 5 units NOW ONCE SQ Last administered on at 13:28; Start 01/04/16 at 12:45; Stop 01/04/16 at 12:46; Status DC Albuterol/ Ipratropium (Duoneb Neb) 1 ampule Q4HR NEB PRN NEB dyspnea Last administered on 04/19/16at 02:24; Start 01/07/16 at 08:15; Stop 04/25/16 at 18:54 ; Status DC Warfarin Sodium (Coumadin) 7.5 mg ONCE ONCE PO Last administered on 01/07/16at 16:40; Start 01/07/16 at 16:00; Stop 01/07/16 at 16:01; Status DC Nystatin (Mycostatin Powder) 1 applic Q12HR TOPICAL Last administered on t 08:35; Start 01/08/16 at 21:00 Ipratropium [place] (Atrovent Neb) 0.5 mg TID NEB NEB Last administered on 02/20at 13:17; Start 01/08/16 at 20:00; Stop 02/21/16 at 17:52; Status DC Warfarin Sodium (Coumadin) 5 mg DAILY@1600 PO Last administered on 01/11/16at 14 :26; Start 01/11/16 at 16:00; Stop 01/12/16 at 09:45; Status DC Warfarin Sodium (Coumadin) 6 mg ONCE PO Last administered on 01/10/16at 17:10; Start 01/10/16 at 16:00; Stop 01/10/16 at 21:00; Status DC Metoprolol Tartrate (Lopressor) 50 mg Q12HR GT Last administered on 01/11/16at 10:02; Start 01/10/16 at 11:00; Stop 01/11/16 at 12:30; Status DC Metoprolol Tartrate (Lopressor) 50 mg TID GT Last administered on 01/14/16at 08: 24; Start 01/11/16 at 13:00; Stop 01/14/16 at 08:28; Status DC Insulin Detemir (Levemir Inj) 10 units HS SQ Last administered on 01/11/16at 22: 23; Start 01/11/16 at 21:00; Stop 01/12/16 at 11:47; Status DC Warfarin Sodium (Coumadin) 4 mg DAILY@16 PO ; Start 01/12/16 at 16:00; Stop at 16:00; Status DC Insulin Detemir (Levemir Inj) 20 units HS SQ Last administered on 01/13/16at 20: 26; Start 01/12/16 at 21:00; Stop 01/14/16 at 08:28; Status DC Warfarin Sodium (Coumadin) 2 mg DAILY@16 PO Last administered on 01/13/16at 17: 05; Start 01/12/16 at 16:00; Stop 01/14/16 at 11:23; Status DC Insulin Detemir (Levemir Inj) 22 units HS SQ Last administered on 01/14/16at 21: 37; Start 01/14/16 at 21:00; Stop 01/15/16 at 10:06; Status DC Metoprolol Tartrate (Lopressor) 75 mg TID GT Last administered on 03/10/16at 17: 43; Start 01/14/16 at 09:00; Stop 03/10/16 at 21:13; Status DC Miscellaneous (Pill Splitter) 1 ea UNSCH PRN OTHER SEE LABEL COMMENTS; Start at 08:30 Warfarin Sodium (Coumadin) 4 mg DAILY@1600 PO Last administered on 01/21/16at 16: 51; Start 01/14/16 at 16:00; Stop 01/23/16 at 09:29; Status DC Patient Medication Teaching (Coumadin Booklet) 1 ONCE ONCE XX ; Start 01/14/16 at 16:00; Stop 01/14/16 at 16:01; Status DC Insulin Detemir (Levemir Inj) 24 units HS SQ Last administered on 03/04/16at 21: 09; Start 01/15/16 at 21:00; Stop 03/05/16 at 11:17; Status DC Citalopram Hydrobromide (CeleXA) 20 mg DAILY PEG Last administered on at 08:01; Start 01/16/16 at 09:00; Stop 01/16/16 at 09:41; Status DC Sennosides (Senna Liq) 8.8 mg BID TUBE Last administered on 02/20/16at 08:32; Start 01/15/16 at 21:00; Stop 02/20/16 at 16:13; Status DC Gadodiamide 18 ml 18 ml STK-MED ONCE IV ; Start 01/16/16 at 20:40; Stop at 20:41; Status DC Sodium Chloride (NS 1000 ml Inj) 1,000 ml @ 125 mls/hr Q8H IV Last administered on 01/17/16at 15:11; Start 01/17/16 at 15:00; Stop 01/17/16 at 17:31 ; Status DC Ranitidine HCl 150 mg 150 mg Q24H PO Last administered on 07/28/16t 08:54; Start 01/18/16 at 09:00; Stop 07/30/16 at 10:05; Status DC Sodium Chloride 1,000 ml @ 75 mls/hr [id number] IV Last administered on at 05:22; Start 01/17/16 at 18:00; Stop 01/18/16 at 09:28; Status DC Sodium Chloride/ Sterile Water (Sodium Chloride 23.4% Inj/Sterile Water For Inj ) 1,009.625 ml @ 60 mls/hr [id number] IV Last administered on 01/21/16at 22:46; Start 01/18/16 at 11:00; Stop 01/22/16 at 10:09; Status DC Potassium Chloride (KCl) 40 meq ONCE ONCE PO ; Start 01/18/16 at 09:30; Stop at 09:31; Status DC Potassium Chloride (KCl 40 Meq/30 ml Liq) 40 meq ONCE ONCE TUBE Last administered on 01/18/16at 11:08; Start 01/18/16 at 11:00; Stop 01/18/16 at 11:01 ; Status DC Water (Free Water) 300 ml Q4HR TUBE Last administered on 01/19/16at 08:00; Start 01/18/16 at 12:00; Stop 01/19/16 at 10:43; Status DC Water (Free Water) 400 ml Q4HR TUBE Last administered on 04/16/16at 04:00; Start 01/19/16 at 12:00; Stop 04/16/16 at 09:09; Status DC Potassium Chloride (KCl 40 Meq/30 ml Liq) 40 meq ONCE ONCE NG Last administered on 01/19/16at 11:41; Start 01/19/16 at 11:00; Stop 01/19/16 at 11:01; Status DC Potassium Chloride 60 meq 60 meq ONCE ONCE PO/TUBE Last administered on 13:30; Start 01/21/16 at 11:15; Stop 01/21/16 at 11:27; Status DC Sodium Chloride (1/2 NS 1000 ml Inj) 1,000 ml @ 30 mls/hr Q24H IV Last administered on 02/06/16at 11:26; Start 01/22/16 at 11:00; Stop 02/07/16 at 14:49 ; Status DC Warfarin Sodium (Coumadin) 3 mg DAILY@16 PO Last administered on 01/23/16 17:19 ; Start 01/23/16 at 16:00; Stop 01/24/16 at 14:05; Status DC Warfarin Sodium (Coumadin) 3 mg DAILY@16 PO Last administered on 01/25/16at 15:59 ; Start 01/25/16 at 16:00; Stop 01/26/16 at 15:04; Status DC Warfarin Sodium (Coumadin) 4 mg ONCE@1600 ONCE PO Last administered on at 16:55; Start 01/24/16 at 16:00; Stop 01/24/16 at 16:01; Status DC Warfarin Sodium (Coumadin) 3 mg DAILY@16 PO ; Start 01/27/16 at 16:00; Stop at 16:00; Status DC Warfarin Sodium (Coumadin) 4 mg ONCE@1600 ONCE PO Last administered on at 16:52; Start 01/26/16 at 16:00; Stop 01/26/16 at 16:01; Status DC Potassium Chloride (KCl 40 Meq/30 ml Liq) 80 meq ONCE ONCE PO Last administered on 01/27/16at 07:45; Start 01/27/16 at 07:45; Stop 01/27/16 at 08:10; Status DC Warfarin Sodium (Coumadin) 4 mg DAILY@16 PO Last administered on 02/02/16at 17: 22; Start 01/27/16 at 16:00; Stop 02/03/16 at 11:37; Status DC Acetic Acid (Acetic Acid 0.25% Irr Btl) 10 ml Q8HR IRRIGATION Last administered on 7/18/16at 06:00; Start 01/28/16 at 22:00; Stop 02/05/16 at 15:51 ; Status DC Warfarin Sodium 3 mg 3 mg DAILY@1600 PO Last administered on 02/11/16at 17:34; Start 02/03/16 at 16:00; Stop 02/12/16 at 12:45; Status DC Ceftriaxone Sodium/Sodium Chloride (Rocephin Inj/NS Inj) 100 ml @ 200 mls/hr Q24H IV Last administered on 02/10/16at 05:23; Start 02/05/16 at 06:30; Stop at 14:32; Status DC Acetic Acid (Acetic Acid 0.25% Irr Btl) 10 ml Q8HR IRRIGATION ; Start 02/05/16 at 16:00; Status Cancel Acetic Acid (Acetic Acid 0.25% Irr Btl) 10 ml Q8HR IRRIGATION Last administered on 11/02/16t 05:51; Start 02/05/16 at 16:00 Lactobacillus Acidophilus (Lactinex) 1 tab Q12HR PO Last administered on at 08:25; Start 02/10/16 at 21:00; Stop 02/12/16 at 16:05; Status DC Warfarin Sodium (Coumadin) 4 mg DAILY@1600 PO Last administered on 02/14/16at 15 :56; Start 02/12/16 at 16:00; Stop 02/15/16 at 10:17; Status DC Paroxetine HCl (Paxil Liq) 20 mg DAILY PEG Last administered on 02/25/16at 07:33 ; Start 02/16/16 at 09:00; Stop 02/25/16 at 10:36; Status DC Warfarin Sodium (Coumadin) 3 mg DAILY@1600 PO Last administered on 02/19/16 16: 42; Start 02/15/16 at 16:00; Stop 02/20/16 at 08:50; Status DC Warfarin Sodium (Coumadin) 4 mg DAILY@16 PO Last administered on 02/21/16at 15:54 ; Start 02/20/16 at 16:00; Stop 02/22/16 at 08:46; Status DC Sennosides (Senna Liq) 8.8 mg DAILY TUBE Last administered on 05/26/16at 08:14 ; Start 02/21/16 at 09:00; Stop 05/27/16 at 11:51; Status DC Albuterol Sulfate (Albuterol Neb) 2.5 mg QID NEB INH Last administered on at 19:51; Start 02/21/16 at 20:00; Stop 02/25/16 at 20:00; Status DC Acetylcysteine (Mucomyst 10% Neb) 1 ml QID NEB NEB Last administered on at 16:32; Start 02/21/16 at 20:00; Stop 02/23/16 at 16:01; Status DC Warfarin Sodium (Coumadin) 3 mg DAILY@16 PO Last administered on 02/22/16at 15:59 ; Start 02/22/16 at 16:00; Stop 02/23/16 at 08:56; Status DC Warfarin Sodium (Coumadin) 3 mg DAILY@16 PO Last administered on 02/28/16at 16: 17; Start 02/24/16 at 16:00; Stop 02/29/16 at 10:04; Status DC Warfarin Sodium (Coumadin) 2 mg ONCE PO Last administered on 02/23/16at 16:22; Start 02/23/16 at 16:00; Stop 02/23/16 at 21:00; Status DC Paroxetine HCl (Paxil Liq) 20 mg DAILY@1900 PEG Last administered on 03/08/16at 18:11; Start 02/26/16 at 19:00; Stop 03/09/16 at 11:31; Status DC Warfarin Sodium (Coumadin) 3 mg DAILY@16 PO Last administered on 03/06/16at 16: 22; Start 03/01/16 at 16:00; Stop 03/09/16 at 10:30; Status DC Warfarin Sodium (Coumadin) 1 mg ONCE PO Last administered on 02/29/16at 17:28; Start 02/29/16 at 16:00; Stop 02/29/16 at 21:00; Status DC Insulin Detemir (Levemir Inj) 27 units HS SQ Last administered on 03/05/16at 20: 25; Start 03/05/16 at 21:00; Stop 03/06/16 at 10:03; Status DC Patient Medication Teaching (Coumadin Booklet) 1 ONCE ONCE XX Last administered on 03/05/16at 16:00; Start 03/05/16 at 16:00; Stop 03/05/16 at 16:01 ; Status DC Insulin Detemir (Levemir Inj) 30 units HS SQ Last administered on 03/21/16at 22: 32; Start 03/06/16 at 21:00; Stop 03/22/16 at 14:48; Status DC Trimethoprim/ Sulfamethoxazole (Bactrim 800-160 Mg/20 ml Liq) 20 ml Q12HR PO Last administered on 03/14/16at 08:01; Start 03/07/16 at 11:15; Stop 03/14/16 at 11:14; Status DC Lorazepam (Ativan Inj) 0.5 mg Q4H PRN IV PUSH seizures or agitation; Start at 23:00 Metronidazole (Flagyl) 500 mg Q8H PO Last administered on 03/14/16at 15:51; Start 03/08/16 at 17:00; Stop 03/14/16 at 23:00; Status DC Warfarin Sodium (Coumadin) 2 mg DAILY@16 PO Last administered on 03/09/16at 17: 20; Start 03/09/16 at 16:00; Stop 03/10/16 at 10:33; Status DC Paroxetine HCl (Paxil) 20 mg DAILY@1900 PEG Last administered on 03/11/16at 17: 55; Start 03/09/16 at 19:00; Stop 03/12/16 at 08:31; Status DC Warfarin Sodium 3 mg 3 mg DAILY@16 PO Last administered on 04/12/16at 15:28; Start 03/10/16 at 16:00; Stop 04/12/16 at 16:39; Status DC Pharmacy Profile Note 0 ml @ 0 mls/hr UNSCH OTHER ; Start 03/10/16 at 14:15; Stop 03/18/16 at 11:33; Status DC Vancomycin HCl/ Sodium Chloride (Vancomycin Inj/ NS 500 ml Inj) 530 ml @ 265 mls/hr Q12H IV Last administered on 03/17/16at 16:26; Start 03/10/16 at 16:00; Stop 03/17/16 at 23:00; Status DC Miscellaneous Information SPECIFIC LAB TO BE ... ONCE ONCE XX Last administered on 03/12/16at 04:45; Start 03/12/16 at 03:45; Stop 03/12/16 at 03:46 ; Status DC Metoprolol Tartrate (Lopressor) 75 mg Q8HR PO Last administered on 04/02/16at 13 :13; Start 03/10/16 at 22:00; Stop 04/02/16 at 17:31; Status DC Paroxetine HCl (Paxil Liq) 20 mg DAILY@1900 PEG Last administered on 11/01/16 18:47; Start 03/12/16 at 19:00 Warfarin Sodium (Coumadin) 1 mg ONCE PO Last administered on 03/21/16at 16:24; Start 03/21/16 at 16:00; Stop 03/21/16 at 21:00; Status DC Warfarin Sodium (Coumadin) 1 mg ONCE PO Last administered on 03/22/16at 17:46; Start 03/22/16 at 16:00; Stop 03/22/16 at 21:00; Status DC Insulin Detemir (Levemir Inj) 32 units HS SQ Last administered on 03/22/16at 20: 18; Start 03/22/16 at 21:00; Stop 03/23/16 at 13:35; Status DC Diltiazem HCl (Cardizem Cd) 120 mg DAILY PO Last administered on 04/14/16at 07: 43; Start 03/22/16 at 16:00; Stop 04/14/16 at 14:39; Status DC Hyoscyamine Sulfate (Levsin Liq) 0.125 mg Q4H PRN PEG INCREASED SECRETIONS Last administered on 04/10/16at 08:05; Start 03/22/16 at 15:15; Stop 04/11/16 at 10:24; Status DC Warfarin Sodium (Coumadin) 2 mg ONCE ONCE PO Last administered on 03/23/16 17: 26; Start 03/23/16 at 16:00; Stop 03/23/16 at 16:01; Status DC Insulin Detemir (Levemir Inj) 34 units HS SQ Last administered on 03/23/16at 20: 01; Start 03/23/16 at 21:00; Stop 03/24/16 at 13:53; Status DC Insulin Detemir (Levemir Inj) 35 units HS SQ Last administered on 11/01/16 21: 02; Start 03/24/16 at 21:00 Insulin Aspart (NovoLOG SUPPLEMENTAL SCALE) 1 ACHS SLIDING SCALE SQ Last administered on 04/16/16at 22:27; Start 03/24/16 at 16:00; Stop 04/19/16 at 17:19 ; Status DC Warfarin Sodium (Coumadin) 1 mg ONCE ONCE PO Last administered on 03/30/16at 16 :59; Start 03/30/16 at 16:00; Stop 03/30/16 at 16:01; Status DC Potassium Chloride (KCl 40 Meq/30 ml Liq) 40 meq ONCE ONCE NG Last administered on 03/31/16at 21:28; Start 03/31/16 at 18:30; Stop 03/31/16 at 18:31 ; Status DC Potassium Bicarb/ Potassium Chloride (K-Lyte Cl Eff) 25 meq ONCE ONCE PEG Last administered on 04/02/16at 12:01; Start 04/02/16 at 13:00; Stop 04/02/16 at 13:01; Status DC Metoprolol Tartrate (Lopressor) 75 mg BID PO Last administered on 05/28/16at 21: 03; Start 04/02/16 at 21:00; Stop 05/29/16 at 11:21; Status DC Potassium Bicarb/ Potassium Chloride (K-Lyte Cl Eff) 25 meq ONCE ONCE PEG Last administered on 04/04/16at 14:40; Start 04/04/16 at 12:30; Stop 04/04/16 at 12:31; Status DC Linezolid (Zyvox) 600 mg Q12HR PO Last administered on 04/16/16at 09:11; Start 04/05/16 at 15:00; Stop 04/16/16 at 12:00; Status DC Artificial Tears (Lacrilube Opht Oint) 1 applic Q12HR EACH EYE Last administered on 09/04/16 21:00; Start 04/10/16 at 11:00; Stop 09/05/16 at 14:38 ; Status DC Hyoscyamine Sulfate (Levsin) 0.25 mg Q4H PRN G-TUBE INCREASED SECRETIONS Last administered on 08/31/16 05:02; Start 04/11/16 at 10:30 Diatrizoate Meglum/ Diatrizoate Sod (Md Gastroview Liq) 18 ml ONCE ONCE PO Last administered on 04/12/16at 16:45; Start 04/12/16 at 16:15; Stop 04/12/16 at 16:16; Status DC Warfarin Sodium (Coumadin) 3 mg DAILY@16 PO ; Start 04/13/16 at 16:00; Stop 05/27/16 at 11:51; Status DC Iohexol (Omnipaque 350 Inj) 98 ml STK-MED ONCE IV Last administered on at 21:01; Start 04/12/16 at 21:01; Stop 04/12/16 at 21:02; Status DC Diltiazem HCl (Cardizem Cd) 180 mg DAILY PO ; Start 04/15/16 at 09:00; Stop at 08:50; Status DC Ondansetron HCl (Zofran Inj) 4 mg Q6HR PRN IV PUSH nausea/vomiting Last administered on 08/10/16t 10:16; Start 04/14/16 at 19:45 Diltiazem HCl 60 mg 60 mg QID PO Last administered on 04/25/16at 17:26; Start at 13:00; Stop 04/25/16 at 19:06; Status DC Sodium Chloride 500 ml @ 500 mls/hr BOLUS ONCE IV Last administered on at 09:15; Start 04/15/16 at 09:15; Stop 04/15/16 at 10:14; Status DC Potassium Chloride/Dextrose/ Sodium Chloride (KCl Inj/D5W-NS 1000 ml Inj) 1,005 ml @ 100 mls/hr Q10H3M IV Last administered on 04/15/16at 21:03; Start at 11:00; Stop 04/16/16 at 09:09; Status DC Enoxaparin Sodium (Lovenox Inj) 90 mg Q12H SQ Last administered on 04/16/16at 21 :12; Start 04/16/16 at 09:00; Stop 04/17/16 at 10:37; Status DC Water 200 ml 200 ml Q4HR TUBE Last administered on 11/02/16 12:00; Start 04/16 at 12:00 Sodium Chloride 1,000 ml @ 84 mls/hr [id number] IV Last administered on at 08:38; Start 04/16/16 at 10:00; Stop 04/20/16 at 12:04; Status DC Ceftriaxone Sodium/Sodium Chloride (Rocephin Inj/NS Inj) 100 ml @ 200 mls/hr Q24H IV Last administered on 05/02/16at 13:19; Start 04/16/16 at 12:00; Stop 05/03/16 at 12:06; Status DC Acetaminophen/ Hydrocodone Bitart ([place] 5-325 Mg) 1 tab Q6HR PEG Last administered on 09/17/16t 06:42; Start 04/18/16 at 18:00; Stop 09/17/16 at 09:17 ; Status DC Lactulose (Lactulose Liq) 30 ml NOW ONCE PEG Last administered on 04/19/16at 17 :21; Start 04/19/16 at 17:30; Stop 04/19/16 at 17:31; Status DC Lactulose (Lactulose Liq) 30 ml DAILY PEG Last administered on 05/26/16at 08:14 ; Start 04/20/16 at 09:00; Stop 05/27/16 at 11:39; Status DC Potassium Bicarb/ Potassium Chloride (K-Lyte Cl Eff) 50 meq ONCE ONCE PO Last administered on 04/20/16at 05:52; Start 04/20/16 at 05:45; Stop 04/20/16 at 05:46; Status DC Furosemide (Lasix Inj) 20 mg ONCE ONCE IV PUSH Last administered on 04/20/16at 17:35; Start 04/20/16 at 12:00; Stop 04/20/16 at 12:06; Status DC Insulin Aspart (NovoLOG SUPPLEMENTAL SCALE) 1 ACHS SLIDING SCALE SQ Last administered on 06/02/16at 12:10; Start 04/20/16 at 16:00; Stop 06/02/16 at 21: 44; Status DC Dextrose (D50w (Vial) Inj) 25 ml UNSCH PRN IV HYPOGLYCEMIA-SEE COMMENTS; Start 04/20/16 at 12:00 Glucagon (Glucagon Inj) 1 mg UNSCH PRN IM/SQ HYPOGLYCEMIA-SEE COMMENTS; Start 04/20/16 at 12:00 Lactobacillus Acidophilus (Lactinex) 1 tab Q12HR PEG Last administered on 06/06at 21:34; Start 04/22/16 at 09:00; Stop 06/07/16 at 09:32; Status DC Furosemide (Lasix Inj) 20 mg Q12H IV PUSH Last administered on 04/24/16at 08:52 ; Start 04/22/16 at 09:00; Stop 04/24/16 at 09:25; Status DC Potassium Bicarb/ Potassium Chloride (K-Lyte Cl Eff) 25 meq Q12HR TUBE Last administered on 05/27/16at 08:17; Start 04/22/16 at 09:00; Stop 05/27/16 at 11:51 ; Status DC Albumin Human (Albumin 25% Inj) 12.5 gm Q12H IV Last administered on 04/24/16at 08:46; Start 04/22/16 at 09:00; Stop 04/24/16 at 09:25; Status DC Furosemide (Lasix Inj) 20 mg DAILY IV PUSH Last administered on 05/08/16at 09: 01; Start 04/25/16 at 09:00; Stop 05/08/16 at 11:06; Status DC Albumin Human (Albumin 25% Inj) 12.5 gm DAILY IV Last administered on at 09:02; Start 04/25/16 at 10:00; Stop 05/08/16 at 11:06; Status DC Furosemide (Lasix Inj) 40 mg ONCE ONCE IV PUSH Last administered on 04/25/16at 18:15; Start 04/25/16 at 18:15; Stop 04/25/16 at 18:16; Status DC Albuterol/ Ipratropium (Duoneb Neb) 1 ampule Q6HR NEB NEB Last administered on 04/27/16at 15:52; Start 04/25/16 at 18:30; Stop 04/27/16 at 19:45; Status DC Ipratropium [place] (Atrovent Neb) 0.5 mg Q6HR NEB NEB Last administered on at 16:51; Start 04/25/16 at 22:00; Stop 04/27/16 at 16:44; Status DC Levalbuterol HCl (Xopenex Neb) 0.31 mg Q4HR NEB NEB Last administered on at 23:48; Start 04/25/16 at 20:00; Stop 04/27/16 at 16:43; Status DC Levalbuterol HCl (Xopenex Neb) 0.31 mg Q2HR NEB PRN NEB SHORTNESS OF BREATH; Start 04/25/16 at 18:45; Stop 04/28/16 at 10:50; Status DC Diltiazem HCl (Cardizem) 90 mg QID PEG Last administered on 07/17/16at 09:27; Start 04/25/16 at 21:00; Stop 07/17/16 at 17:52; Status DC Diltiazem HCl (Cardizem) 30 mg NOW ONCE PEG Last administered on 04/25/16at 21: 36; Start 04/25/16 at 19:15; Stop 04/25/16 at 19:16; Status DC Levalbuterol HCl (Xopenex Neb) 0.31 mg Q8HR NEB NEB ; Start 04/28/16 at 00:00; Stop 04/28/16 at 10:50; Status DC Levalbuterol HCl (Xopenex Neb) 0.63 mg Q4HR NEB PRN NEB SHORTNESS OF BREATH Last administered on 05/04/16at 15:26; Start 04/28/16 at 11:00; Stop 05/04/16 at 00:51; Status DC Levalbuterol HCl (Xopenex Neb) 0.63 mg Q8HR NEB NEB Last administered on 05/04at 00:07; Start 04/28/16 at 16:00; Stop 05/04/16 at 00:50; Status DC Polyethylene Glycol/ Electrolytes 4000 ml 4,000 ml ONCE ONCE PO Last administered on 05/05/16at 08:10; Start 05/05/16 at 08:45; Stop 05/05/16 at 08 :46; Status DC Cefazolin Sodium/ Dextrose 50 ml @ 100 mls/hr ONCE ONCE IV ; Start 05/06/16 at 14:00; Stop 05/06/16 at 14:29; Status DC Metronidazole 100 ml @ 100 mls/hr ONCE ONCE IV Last administered on at 14:00; Start 05/06/16 at 14:00; Stop 05/06/16 at 14:59; Status DC Ceftriaxone Sodium/Sodium Chloride (Rocephin Inj/NS Inj) 100 ml @ 200 mls/hr Q24H IV Last administered on 06/09/16at 12:36; Start 05/03/16 at 12:00; Stop 06/10/16 at 12:48; Status DC Levalbuterol HCl (Xopenex Neb) 0.63 mg Q8HR NEB NEB Last administered on 05/05at 08:00; Start 05/04/16 at 00:49; Stop 05/05/16 at 08:07; Status DC Levalbuterol HCl (Xopenex Neb) 0.63 mg Q4HR NEB PRN NEB SHORTNESS OF BREATH Last administered on 10/18/16 15:44; Start 05/05/16 at 12:00 Levalbuterol HCl (Xopenex Neb) 0.63 mg Q8HR NEB NEB Last administered on 05/08at 23:56; Start 05/05/16 at 08:15; Stop 05/09/16 at 08:15; Status DC Potassium Bicarb/ Potassium Chloride (K-Lyte Cl Eff) 25 meq DAILY TUBE Last administered on 11/02/16 08:34; Start 05/28/16 at 09:00 Aspirin (Aspirin) 325 mg DAILY TUBE Last administered on 11/02/16 08:33; Start 05/27/16 at 11:40 Docusate Sodium (Colace Liq) 100 mg DAILY PRN PO constipation Last administered on 08/16/16 21:09; Start 05/27/16 at 11:45; Stop 08/31/16 at 09:00 ; Status DC Metoprolol Tartrate (Lopressor) 50 mg BID PO Last administered on 08/23/16 09: 03; Start 05/29/16 at 21:00; Stop 08/23/16 at 15:33; Status DC Acetaminophen/ Hydrocodone Bitart ([place] 5-325 Mg) 1 tab Q6H PRN TUBE BREAKTHROUGH PAIN Last administered on 08/02/16 15:11; Start 06/03/16 at 03:00 ; Stop 09/17/16 at 14:33; Status DC Insulin Aspart (NovoLOG SUPPLEMENTAL SCALE) 1 ACHS SLIDING SCALE SQ Last administered on 06/06/16at 21:35; Start 06/03/16 at 07:00; Stop 06/07/16 at 12 :24; Status DC Lactobacillus Acidophilus (Lactinex) 1 tab TID PEG Last administered on 09:13; Start 06/07/16 at 13:00; Stop 10/13/16 at 12:08; Status DC Insulin Aspart 1 1 AC BREAKFAST SQ Last administered on 10/28/16 06:13; Start 06/08/16 at 07:00 Ceftriaxone Sodium/Sodium Chloride (Rocephin Inj/NS Inj) 100 ml @ 200 mls/hr Q24H IV Last administered on 07/28/16 12:19; Start 06/10/16 at 12:00; Stop 07/29/16 at 13:30; Status DC Heparin Sodium (Porcine) (Heparin Inj) 5,000 units Q12HR SQ Last administered on 06/11/16at 00:58; Start 06/10/16 at 14:15; Stop 06/11/16 at 06:21; Status DC Heparin Sodium (Porcine) (Heparin Inj) 5,000 units Q8HR SQ Last administered on 11/02/16 05:51; Start 06/11/16 at 14:00 Diltiazem HCl (Cardizem) 30 mg QID PEG Last administered on 08/16/16 08:31; Start 07/17/16 at 18:00; Stop 08/16/16 at 12:06; Status DC Bacitracin 1 applic 1 applic BID TOP Last administered on 11/02/16 08:35; Start 07/20/16 at 10:00 Lactated Ringer's 1,000 ml @ 30 mls/hr Q24H IV ; Start 07/21/16 at 17:45; Stop 08/14/16 at 12:08; Status DC Sodium Chloride (NS 500 ml Inj) 500 ml @ 30 mls/hr [id number] IV ; Start 07/21/16 at 17:45; Stop 07/22/16 at 17:44; Status DC Insulin Human Regular (NovoLIN R INJ) See Protocol Table ... UNSCH X1 PRN SQ SEE PROTOCOL; Start 07/21/16 at 17:45; Stop 07/22/16 at 17:44; Status DC Metoprolol Tartrate (Lopressor) 25 mg UNSCH X1 PRN PO SEE LABEL COMMENTS; Start 07/21/16 at 17:45; Stop 07/22/16 at 17:44; Status DC Lidocaine/ Epinephrine (Xylocaine-Epi 1%-1:100,000 Inj) 40 ml STK-MED ONCE .ROUTE Last administered on 07/22/16 10:56; Start 07/22/16 at 10:04; Stop at 10:05; Status DC Ketamine HCl (Ketalar Inj) 500 mg STK-MED ONCE .ROUTE ; Start 07/22/16 at 10:50; Stop 07/22/16 at 10:51; Status DC Propofol 600 mg 600 mg STK-MED ONCE IV ; Start 07/22/16 at 12:00; Stop 07/23/16 at 14:36; Status DC Dextrose 1,000 ml @ 40 mls/hr Q24H ONCE IV Last administered on 07/28/16 14:33 ; Start 07/28/16 at 14:00; Stop 07/29/16 at 13:59; Status DC Ampicillin Sodium/ Sulbactam Sodium/ Sodium Chloride (Unasyn Inj/NS Inj) 100 ml @ 200 mls/hr Q6H IV Last administered on 08/01/16 12:30; Start 07/29/16 at 14: 00; Stop 08/01/16 at 14:13; Status DC Ondansetron HCl 4 mg 4 mg ONCE ONCE IV PUSH Last administered on 07/30/16 02: 46; Start 07/30/16 at 00:30; Stop 07/30/16 at 00:33; Status DC Lactated Ringer's 1,000 ml @ 30 mls/hr Q24H IV ; Start 07/30/16 at 06:00; Stop 08/14/16 at 12:09; Status DC Sodium Chloride (NS 500 ml Inj) 500 ml @ 30 mls/hr [id number] IV ; Start 07/30/16 at 06:00; Stop 07/31/16 at 05:59; Status DC Pantoprazole Sodium (Protonix Inj) 40 mg Q12H IV PUSH Last administered on 11/02 10:23; Start 07/30/16 at 10:15 Propofol 200 mg 200 mg STK-MED ONCE IV ; Start 07/30/16 at 09:41; Stop 07/30/16 at 10:19; Status DC Piperacillin Sod/ Tazobactam Sod (Zosyn 4.5 Gm Premix) 100 ml @ 200 mls/hr Q6H IV Last administered on 08/07/16 09:37; Start 08/01/16 at 16:00; Stop at 16:10; Status DC Linezolid (Zyvox) 600 mg Q12HR PO Last administered on 08/22/16 09:10; Start at 21:00; Stop 08/22/16 at 15:55; Status DC Sodium Chloride ([place]) 1 spray BID NASAL Last administered on 08:36; Start 08/01/16 at 21:00 Metronidazole 500 mg 500 mg Q8H PO Last administered on 08/08/16 08:28; Start 08/07/16 at 16:00; Stop 08/08/16 at 16:10; Status DC Sodium Chloride (NS 1000 ml Inj) 1,000 ml @ 42 mls/hr [id number] IV Last administered on 08/14/16 12:44; Start 08/14/16 at 12:00; Stop 08/15/16 at 10:56 ; Status DC Fentanyl Citrate (fentaNYL INJ) 250 mcg STK-MED ONCE .ROUTE Last administered on 08/14/16 15:36; Start 08/14/16 at 15:36; Stop 08/14/16 at 15:37; Status DC Iohexol (Omnipaque 350 Inj) 30 ml STK-MED ONCE G-TUBE Last administered on 08/14 15:45; Start 08/14/16 at 15:52; Stop 08/14/16 at 15:53; Status DC Diltiazem HCl (Cardizem) 30 mg QID PEG Last administered on 11/02/16 08:34; Start 08/16/16 at 13:00 Polyethylene Glycol (Miralax) 17 gm ONCE ONCE PEG Last administered on 11:32; Start 08/17/16 at 12:00; Stop 08/17/16 at 12:01; Status DC Amoxicillin 500 mg 500 mg Q8HR PO Last administered on 11/02/16 05:50; Start 08/22/16 at 22:00 Cefepime HCl/ Sodium Chloride (Maxipime Inj/NS Inj) 100 ml @ 200 mls/hr Q8H IV Last administered on 09/03/16 10:46; Start 08/23/16 at 16:00; Stop 09/03/16 at 15:02; Status DC Metoprolol Tartrate (Lopressor) 75 mg BID PO Last administered on 09/13/16 08: 42; Start 08/23/16 at 21:00; Stop 09/13/16 at 13:09; Status DC Docusate Sodium (Colace Liq) 100 mg BID PO Last administered on 11/02/16 08:34 ; Start 08/30/16 at 21:00 Sennosides (Senokot) 17.2 mg DAILY PO Last administered on 09/25/16 08:36; Start 08/30/16 at 14:00; Stop 09/25/16 at 16:09; Status DC Lactulose (Lactulose Liq) 30 ml DAILY PO Last administered on 11/02/16 08:33; Start 09/02/16 at 15:30 Artificial Tears (Tears Naturale Opth Soln) 1 drop BID EACH EYE Last administered on 11/02/16 08:36; Start 09/05/16 at 21:00 Midazolam HCl (Versed Inj) 2 mg STK-MED ONCE .ROUTE Last administered on 11:37; Start 09/09/16 at 11:37; Stop 09/09/16 at 11:38; Status DC Fentanyl Citrate (fentaNYL INJ) 100 mcg STK-MED ONCE .ROUTE Last administered on 09/09/16 11:38; Start 09/09/16 at 11:38; Stop 09/09/16 at 11:39; Status DC Iohexol (Omnipaque 350 Inj) 20 ml STK-MED ONCE G-TUBE Last administered on 09/09 11:50; Start 09/09/16 at 11:50; Stop 09/09/16 at 12:15; Status DC Metoprolol Tartrate (Lopressor) 50 mg BID PO Last administered on 11/02/16 08: 34; Start 09/13/16 at 21:00 Acetaminophen/ Hydrocodone Bitart ([place] 5-325 Mg) 1 tab Q6H PEG ; Start at 11:00; Stop 09/17/16 at 14:25; Status DC Acetaminophen/ Hydrocodone Bitart ([place] 5-325 Mg) 1 tab DAILY@1600 PO ; Start 09/17/16 at 16:00; Stop 09/17/16 at 16:00; Status DC Morphine Sulfate (Morphine Inj) 1 mg Q24H PRN IV PUSH dressing change 30 min before Last administered on 10/22/16 02:00; Start 09/17/16 at 14:30 Acetaminophen/ Hydrocodone Bitart ([place] 5-325 Mg) 1 tab DAILY@0000 PO Last administered on 09/17/16 23:43; Start 09/18/16 at 00:00; Stop 09/20/16 at 12:46; Status DC Acetaminophen/ Hydrocodone Bitart ([place] 5-325 Mg) 1 tab Q8H PO Last administered on 10/13/16 13:38; Start 09/20/16 at 13:00; Stop 10/13/16 at 18:29 ; Status DC Ketoconazole (Nizoral 2% Cream) 1 applic Q12HR TOPICAL Last administered on 21:00; Start 09/24/16 at 21:00 Sennosides (Senna Liq) 8.8 mg DAILY@1600 PO Last administered on 11/01/16 16: 50; Start 09/25/16 at 17:00 Sodium Biphosphate/ Sodium Phosphate (Fleets Enema (Adult)) 133 ml UNSCH PRN MO CONSTIPATION; Start 09/25/16 at 16:00 Bisacodyl (Dulcolax Supp) 10 mg DAILY PRN RECTAL CONSTIPATION Last administered on 10/20/16 12:53; Start 09/26/16 at 15:30 Bisacodyl (Dulcolax Supp) 10 mg ONCE ONCE RECTAL Last administered on 16:10; Start 09/26/16 at 15:30; Stop 09/26/16 at 15:31; Status DC Cyclobenzaprine HCl (Flexeril) 5 mg Q8H PO Last administered on 10/13/16 13:37 ; Start 10/13/16 at 12:15; Stop 10/13/16 at 18:27; Status DC Magnesium Hydroxide (Milk Of Magnesia Liq) 30 ml DAILY PRN PO constipation Last administered on 10/20/16 12:54; Start 10/13/16 at 14:30 Acetaminophen/ Hydrocodone Bitart ([place] 5-325 Mg) 1 tab Q6H PRN PO PAIN SCALE 1 TO 10; Start 10/13/16 at 18:30; Stop 10/13/16 at 18:30; Status DC Acetaminophen/ Hydrocodone Bitart ([place] 5-325 Mg) 1 tab Q6H PRN PO PAIN SCALE 1 TO 10 Last administered on 11/02/16 05:51; Start 10/13/16 at 18:45 Cyclobenzaprine HCl (Flexeril) 5 mg HS PRN PO muscle relaxant Last administered on 10/22/16 21:17; Start 10/14/16 at 14:15 Fentanyl Citrate (fentaNYL INJ) 100 mcg STK-MED ONCE .ROUTE ; Start 10/23/16 at 16:51; Stop 10/23/16 at 16:52; Status DC Glycerin (Glycerin Adult Supp) 2 gm ONCE ONCE RECTAL Last administered on 15:29; Start 10/26/16 at 15:00; Stop 10/26/16 at 15:01; Status DC Nitrofurantoin Macrocrystals (Macrobid) 100 mg BIDPC PO Last administered on 09:36; Start 10/26/16 at 15:00; Stop 10/29/16 at 14:59; Status DC Date of Insertion: Oct 12, 2016 A/P Assessment and Plan A/P 60-year-old male with: CVA Paraplegia 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 Keppra continued (for seizures) Supportive Care nursing home care needed for chronic and profound neurologic deficits. Recovery is not expected to occur. Medicaid with SSI pending. Recent Fever- now has resolved Constipation Resolved Clogged PEG tube Has occured on 10/14 and 10/23 Follow for recurrence Continue Flushes GI if replacement needed Chronic respiratory failure Related to CVA Continue trach management PRN Levsin pulmonary following. Atrial fibrillation Cardizem Metoprolol Follow heart rate History of non-Hodgkin's lymphoma Follow clinically Diabetes mellitus Follow blood sugars Decubitus ulcer stage IV: Wound care per bed and breakfast innkeeper wound vas was discontinued due to bleeding ( 10/29/16). Frequent turns Colostomy declined by family (inability to divert feces in this chronic setting increases risks with ulcer and for recurrence of ulcers) Chronic Arevalo Follow for UTIs Hx of Gastric Ulcer Follow clinically PPI Monitor H/H periodically. FEN: Continue Nepro tube feeds. Appreciate dietary recommendations. Continue free water flushes. Supplement potassium. DVT prophylaxis: SCDs. Discharge Planning dc planning to SNF-no funding- SSI pending. Medardo Au MD Nov 02, 2016 12:44
--- NOTE | 2016-11-02 13:05 | HHI.PR ---
Subjective Remarks opens eyes on o2 , o2 SAT 96 on T PIECE Objective Vital Signs Date Time Temp Pulse Resp B/P Pulse Ox O2 Delivery O2 Flow Rate FiO2 11/02/16 12:05 97.0 74 12 104/74 99 11/02/16 11:33 98 T-piece 28 11/02/16 08:15 95.8 90 12 131/73 100 11/02/16 04:00 97.6 89 18 133/76 99 11/02/16 00:47 99 T-piece 6.00 28 11/02/16 00:00 97.5 82 18 105/69 96 11/01/16 21:00 T-Piece 28 11/01/16 20:00 95 11/01/16 20:00 97.3 104 18 125/73 99 11/01/16 16:00 97.6 94 16 109/66 99 I/O 11/01/16 11/01/16 11/01/16 11/02/16 11/02/16 11/02/16 07:00 15:00 23:00 07:00 15:00 23:00 Intake Total 505 ml 200 ml 1866 ml Output Total 800 ml 800 ml Balance -295 ml 200 ml 1066 ml Tube Feeding 505 ml 1466 ml Other 200 ml 400 ml Output Urine Total 800 ml 800 ml # Bowel Movements 1 Procedures 01/02/16 PEG placement 01/02/16 tracheostomy 07/22/2016 Wide excision of sacral skin wound, biopsy of the cavity lining and debridement. PEG tube replacement 07/29/16 Objective Remarks GENERAL: SKIN: Warm and dry. HEAD: Atraumatic. Normocephalic. EYES: Pupils equal and round. No scleral icterus. No injection or drainage. ENT: No nasal bleeding or discharge. Mucous membranes pink and moist. NECK: Trachea midline. No JVD. TRACH. [place] CARDIOVASCULAR: Regular rate and rhythm. RESPIRATORY: No accessory muscle use. Clear to auscultation. Breath sounds equal bilaterally. GASTROINTESTINAL: Abdomen soft, non-tender, nondistended. Hepatic and splenic margins not palpable. MUSCULOSKELETAL: Extremities without clubbing, cyanosis, or edema. No obvious deformities. NEUROLOGICAL: Awake and alert. No obvious cranial nerve deficits. Motor grossly within normal limits. Five out of 5 muscle strength in the arms and legs. Normal speech. PSYCHIATRIC: Appropriate mood and affect; insight and judgment normal. Assessment and Plan Assessment and Plan impression respiratory failure CVA S/P TRACHEOSTOMY PLAN O2 NEEDED PULM. TOFLORENCIAT Brandon Taylor MD Nov 02, 2016 13:04
[2016-11-02] MEDS: SENNOSIDES SYRUP 8.8 MG/5 ML CUP PO SCH (16:37)
[2016-11-02] MEDS: PARoxetine HCL SUSP 20 MG/10 ML UDC PEG SCH (18:46)
[2016-11-02] MEDS: INSULIN DETEMIR 100 UNITS/ML VIAL SQ SCH (21:34)
[2016-11-03] VITALS (8 sets, daily range): BP systolic 108–160; BP diastolic 68–95; PULSE 85–92; RESP 18–22; TEMP 95.5–98.2; O2SAT 98–100
[2016-11-03] MEDS: FREE WATER TUBE SCH ×6 (03:43→21:22)
[2016-11-03] MEDS: HEPARIN SODIUM - SQ 10,000 UNITS/ML VIAL SQ SCH ×3 (05:08→21:24)
[2016-11-03] MEDS: ACETIC ACID 0.25% SOLN 1000 ML IRR BTL IRRIGATION SCH ×3 (05:08→21:23)
[2016-11-03] MEDS: AMOXICILLIN (TRIHYDRATE) 500 MG CAP PO SCH ×3 (05:08→21:21)
[2016-11-03] MEDS: INSULIN ASPART SUPPLEMENTAL SCALE SQ SCH (05:09)
[2016-11-03] MEDS: NYSTATIN 100,000 U/GM PWD 15 GM BTL TOPICAL SCH ×2 (09:00→21:23)
[2016-11-03] MEDS: KETOCONAZOLE 2% CREAM 15 GM TOPICAL SCH ×2 (09:00→21:23)
[2016-11-03] MEDS: SODIUM CHLORIDE 0.65% NASAL SPRAY 45 ML BTL NASAL SCH ×2 (09:00→21:23)
[2016-11-03] MEDS: DOCUSATE SODIUM 100 MG/10 ML UDC PO SCH ×2 (09:45→21:21)
[2016-11-03] MEDS: levETIRAcetam 500 MG/5 ML UDC TUBE SCH ×2 (09:46→21:21)
[2016-11-03] MEDS: LACTULOSE SYRUP 20 GM/30 ML CUP PO SCH (09:46)
[2016-11-03] MEDS: ASPIRIN 325 MG TAB TUBE SCH (09:47)
[2016-11-03] MEDS: POTASSIUM CHLORIDE 25 MEQ EFFERVESCENT TAB TUBE SCH (09:47)
[2016-11-03] MEDS: METOPROLOL TARTRATE 50 MG TAB PO SCH ×2 (09:48→21:21)
[2016-11-03] MEDS: DILTIAZEM HCL 30 MG TAB PEG SCH ×4 (09:48→21:23)
[2016-11-03] MEDS: ARTIFICIAL TEARS OPTH SOLN 15 ML BTL EACH EYE SCH ×2 (09:49→21:22)
[2016-11-03] MEDS: BACITRACIN TOP OINT 15 GM TUBE TOP SCH ×2 (09:49→21:22)
[2016-11-03] MEDS: PANTOPRAZOLE SODIUM 40 MG VIAL IV PUSH SCH ×2 (11:23→21:24)
--- NOTE | 2016-11-03 11:59 | HHI.PR ---
Subjective Remarks in no acute distress. clinically no change. Objective Vitals Vital Signs Date Time Temp Pulse Resp B/P Pulse Ox O2 Delivery O2 Flow Rate FiO2 11/03/16 10:53 100 T-piece 28 11/03/16 08:48 97.7 88 18 110/68 98 11/03/16 04:00 97.2 87 22 123/77 98 11/03/16 00:00 97.8 89 22 118/70 98 11/02/16 20:00 97.7 85 22 123/75 100 11/02/16 18:05 97 T-piece 6.00 28 11/02/16 14:15 97.8 81 12 125/78 97 11/02/16 12:05 97.0 74 12 104/74 99 I/O 11/02/16 11/02/16 11/02/16 11/03/16 11/03/16 11/03/16 07:00 15:00 23:00 07:00 15:00 23:00 Intake Total 1866 ml 984 ml 893 ml Output Total 800 ml 825 ml 700 ml 950 ml Balance 1066 ml -825 ml 284 ml -57 ml Tube Feeding 1466 ml 984 ml 493 ml Other 400 ml 400 ml Output Urine Total 800 ml 825 ml 700 ml 950 ml # Bowel Movements 1 1 0 Imaging Last Impressions Tube Change 10/23/16 0000 Signed Impressions: Service Date/Time: Sunday, October 23, 2016 16:34 - CONCLUSION: Uncomplicated gastrojejunostomy tube exchange as above. Existing tube was patent with some luminal narrowing. The balloon port was damaged and leaking, however. Bobby Gray MD Chest X-Ray 10/18/16 0000 Signed Impressions: Service Date/Time: Tuesday, October 18, 2016 19:17 - CONCLUSION: 1. Minimal right perihilar streakiness consistent with probable atelectasis. 2. Elevation of the right hemidiaphragm. 3. Tracheostomy tube in good position above the geno. Eduardo Valenzuela MD Abdomen X-Ray 08/31/16 0000 Signed Impressions: Service Date/Time: Wednesday, August 31, 2016 16:36 - CONCLUSION: 1. No acute findings. Mild constipation. Durga Dotson MD Abdomen/Pelvis CT 04/12/16 0000 Signed Impressions: Service Date/Time: Tuesday, April 12, 2016 20:52 - CONCLUSION: 1. 6.4 cm necrotic mass or abscess in the soft tissues posteriorly just below the sacrum associated with some bony destructive change of the lower most sacrum and coccyx with inflammatory changes extending into the ischiorectal fossa and into the presacral retroperitoneum predominantly on the left side. There is associated fairly marked mural thickening of the anal verge and rectum. 2. There is gastrostomy and Arevalo catheter present. Stable abdominal aortic aneurysm. Durga Dotson MD Head Magnetic Resonance Angiography 03/05/16 0000 Signed Impressions: Service Date/Time: Saturday, March 05, 2016 09:26 - CONCLUSION: Persistent high-grade subtotal occlusive stenotic lesions in the distal right vertebral artery and proximal basilar artery with significant improvement in flow and recanalization following initial presentation of thrombosis. Stable interstitial circulation without significant stenosis. 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 There is decreasing restricted diffusion and increasing loss of volume characteristic of a subacute to chronic infarct. No evidence of acute infarct, acute hemorrhage mass or edema. Ernesto Kulkanri MD Head CT 01/16/16 0000 Signed Impressions: Service Date/Time: Saturday, January 16, 2016 10:51 - CONCLUSION: No extensive low density in the brainstem colin more prominent in the right the left extending into the right middle cerebellar peduncle consistent with brainstem infarct nonhemorrhagic acute Wellington West MD Neck Magnetic Resonance Angiography 12/22/15 1445 Signed Impressions: Service Date/Time: Tuesday, December 22, 2015 09:22 - CONCLUSION: Variant origin of the left vertebral artery from the aortic arch. No evidence of carotid stenosis. Glen Zamora MD Head/Brain Mag Res Venography 12/22/15 0000 Signed Impressions: Service Date/Time: Tuesday, December 22, 2015 09:22 - CONCLUSION: Normal MRV. Jonel Jones Jr., MD Objective Remarks GENERAL: on Trach- in no apparent distress. CARDIOVASCULAR: Regular rate and regular rhythm without murmurs, gallops, or rubs. RESPIRATORY: Clear to auscultation. Breath sounds equal bilaterally. No wheezes , rales, or rhonchi. GASTROINTESTINAL: Abdomen soft, non-tender,distended. hypoactive bowel sounds-PEG in place MUSCULOSKELETAL: Extremities without clubbing, cyanosis, or edema. NEURO: awake Procedures 01/02/16 PEG placement 01/02/16 tracheostomy 07/22/2016 Wide excision of sacral skin wound, biopsy of the cavity lining and debridement. PEG tube replacement 07/29/16 VAC changes- M-W-F 4/5- GJ tube replacement Medications and IVs Current Medications IV Flush (NS Flush) 2 ml UNSCH PRN IVF FLUSH AFTER USING IV ACCESS Last administered on 09/28/16t 21:18; Start 12/21/15 at 06:00 Ondansetron HCl (Zofran Inj) 4 mg STK-MED ONCE .ROUTE ; Start 12/21/15 at 06:22; Stop 12/21/15 at 06:23; Status DC Ondansetron HCl (Zofran Inj) 4 mg ONCE ONCE IV PUSH Last administered on at 06:43; Start 12/21/15 at 06:30; Stop 12/21/15 at 06:31; Status DC Diltiazem HCl 20 mg 20 mg ONCE ONCE IV Last administered on 12/21/15at 06:42; Start 12/21/15 at 06:30; Stop 12/21/15 at 06:31; Status DC Diltiazem HCl/ Sodium Chloride (Cardizem Inj/NS Inj) 125 ml @ 0 mls/hr TITRATE IV Last administered on 12/21/15at 06:47; Start 12/21/15 at 06:30; Stop 12/21/15 at 13:00; Status DC Acetaminophen (Tylenol) 650 mg ONCE ONCE PO ; Start 12/21/15 at 06:45; Stop 12/20 at 06:46; Status DC Lorazepam (Ativan Inj) 1 mg ONCE ONCE IV PUSH Last administered on 12/21/15at 07 :22; Start 12/21/15 at 07:15; Stop 12/21/15 at 07:16; Status DC Etomidate (Amidate Inj) 40 mg STK-MED ONCE .ROUTE Last administered on at 08:17; Start 12/21/15 at 07:37; Stop 12/21/15 at 07:38; Status DC Succinylcholine Chloride 200 mg 200 mg STK-MED ONCE .ROUTE Last administered on 12/21/15at 08:18; Start 12/21/15 at 07:37; Stop 12/21/15 at 07:38; Status DC Propofol (Diprivan 1000 Mg/100ml Inj) 100 ml @ As Directed STK-MED ONCE .ROUTE Last administered on 12/21/15at 08:19; Start 12/21/15 at 07:46; Stop 12/21/15 at 07:47; Status DC Propofol (Diprivan 1000 Mg/100ml Inj) search Sets for Drip. NOW PRN IV SEDATION Last administered on 12/22/15at 06:25; Start 12/21/15 at 08:30; Stop 12/28 at 15:43; Status DC Gadodiamide (Omniscan Pf Inj) 18 ml STK-MED ONCE IV Last administered on at 10:11; Start 12/21/15 at 10:11; Stop 12/21/15 at 10:12; Status DC Pantoprazole Sodium (Protonix Inj) 40 mg DAILY IV Last administered on at 07:39; Start 12/21/15 at 13:00; Stop 01/03/16 at 10:10; Status DC Albuterol/ Ipratropium (Duoneb Neb) 1 ampule Q6HR NEB INH Last administered on 12/25/15at 07:51; Start 12/21/15 at 13:00; Stop 12/25/15 at 13:00; Status DC Miscellaneous Information 1 [id number] Last administered on 12/21/15at 13:00; Start 12/21/15 at 13:00; Stop 01/12/16 at 11:47; Status DC Chlorhexidine Gluconate (Chlorhexidine 2% Cloth) 3 pack Taper DAILY@04 TOP Last administered on 01/11/16at 04:10; Start 12/22/15 at 04:00; Stop 01/12/16 at 11:47; Status DC Chlorhexidine Gluconate 3 pack 3 pack UNSCH PRN TOP HYGIENIC CARE; Start at 13:00; Stop 01/12/16 at 11:47; Status DC Sodium Chloride (NS 1000 ml Inj) 1,000 ml @ 75 mls/hr [id number] IV Last administered on 12/22/15at 17:00; Start 12/21/15 at 13:00; Stop 12/22/15 at 19:01; Status DC Dextrose (D50w (Vial) Inj) 25 ml UNSCH PRN IV PUSH HYPOGLYCEMIA-SEE COMMENTS; Start 12/21/15 at 13:00; Stop 04/19/16 at 17:19; Status DC Glucagon (Glucagon Inj) 1 mg UNSCH PRN OTHER HYPOGLYCEMIA-SEE COMMENTS; Start 12/21/15 at 13:00; Stop 04/19/16 at 17:19; Status DC Insulin Human Regular (NovoLIN R SUPPLEMENTAL SCALE) 1 Q6H SQ Last administered on 01/04/16at 06:31; Start 12/21/15 at 13:00; Stop 01/04/16 at 10:05 ; Status DC Levetriacetam (Keppra) 500 mg Q12HR PO Last administered on 12/27/15at 09:00; Start 12/21/15 at 13:45; Stop 12/27/15 at 09:44; Status DC Heparin Sodium (Porcine) (Heparin Inj) 5,000 units BID SQ Last administered on 12/22/15at 20:52; Start 12/21/15 at 21:00; Stop 12/23/15 at 08:32; Status DC Warfarin Sodium (Coumadin) 7.5 mg ONCE ONCE PO Last administered on 12/21/15at 21:43; Start 12/21/15 at 21:00; Stop 12/21/15 at 21:01; Status DC Warfarin Sodium (Coumadin) 5 mg DAILY@16 PO Last administered on 12/23/15at 16:00 ; Start 12/22/15 at 16:00; Stop 12/26/15 at 09:29; Status DC Patient Medication Teaching (Coumadin Booklet) 1 ONCE ONCE XX Last administered on 12/21/15at 20:15; Start 12/21/15 at 20:15; Stop 12/21/15 at 20:16; Status DC Chlorhexidine Gluconate (Peridex 0.12% Liq) 15 ml BID@08,20 MT Last administered on 01/12/16at 08:00; Start 12/22/15 at 20:00; Stop 01/12/16 at 11:47 ; Status DC Gadodiamide 20 ml 20 ml STK-MED ONCE IV Last administered on 12/22/15at 09:55; Start 12/22/15 at 09:55; Stop 12/22/15 at 09:56; Status DC Pharmacy Profile Note ml @ 0 mls/hr UNSCH OTHER ; Start 12/22/15 at 11:00; Stop 12/22/15 at 19:43; Status DC Sodium Chloride 1,000 ml @ 50 mls/hr Q20H IV Last administered on 12/24/15at 20: 02; Start 12/22/15 at 18:44; Stop 12/25/15 at 11:52; Status DC Pharmacy Profile Note (Coumadin Consult Pharmacy) 0 ml @ 0 mls/hr UNSCH OTHER ; Start 12/22/15 at 19:45; Stop 01/04/16 at 12:25; Status DC Acetaminophen 650 mg 650 mg Q6H PRN PO TEMP > 100 Last administered on at 13:24; Start 12/23/15 at 02:45; Stop 12/30/15 at 15:04; Status DC Potassium Chloride 100 ml @ 50 mls/hr Q2H PRN IV For Potassium 2.8 - 3.2 mEq/L ; Start 12/23/15 at 08:30; Stop 01/09/16 at 11:14; Status DC Potassium Chloride (KCl 20 Meq Premix Inj) 100 ml @ 50 mls/hr Q2H PRN IV For Potassium 2.8 - 3.2 mEq/L; Start 12/23/15 at 08:30; Stop 01/09/16 at 11:14; Status DC Potassium Chloride 40 meq 40 meq UNSCH PRN PO/TUBE For Potassium 3.3 - 3.5 mEq/ L; Start 12/23/15 at 08:30; Stop 01/09/16 at 11:14; Status DC Potassium Chloride 100 ml @ 25 mls/hr UNSCH PRN IV For Potassium 3.3 - 3.5 mEq /L; Start 12/23/15 at 08:30; Stop 01/09/16 at 11:14; Status DC Potassium Chloride 100 ml @ 50 mls/hr Q2H PRN IV For Potassium 3.3 - 3.5 mEq/L ; Start 12/23/15 at 08:30; Stop 01/09/16 at 11:14; Status DC Magnesium Sulfate/ Sodium Chloride (Magnesium Sulfate Inj/NS Inj) 100 ml @ 50 mls/hr UNSCH PRN IV For Magnesium 0.9 - 1.1 mg/dL; Start 12/23/15 at 08:30; Stop 01/09/16 at 11:14; Status DC Magnesium Oxide 800 mg 800 mg UNSCH PRN PO For Magnesium 1.2 - 1.6 mg/dL; Start 12/23/15 at 08:30; Stop 01/09/16 at 11:14; Status DC Magnesium Sulfate/ Sodium Chloride (Magnesium Sulfate Inj/NS Inj) 100 ml @ 50 mls/hr UNSCH PRN IV For Magnesium 1.2 - 1.6 mg/dL; Start 12/23/15 at 08:30; Stop 01/09/16 at 11:14; Status DC Potassium Phosphate 2000 mg 2,000 mg Q4H PRN PO For Phosphorus < 2.5 mg/dL; Start 12/23/15 at 08:30; Stop 01/09/16 at 11:14; Status DC Sodium Phosphate/ Sodium Chloride (Sodium Phosphate Inj/NS 250 ml Inj) 250 ml @ 42 mls/hr UNSCH PRN IV For Phosphorus < 2.5 mg/dL; Start 12/23/15 at 08:30; Stop 01/09/16 at 11:14; Status DC Potassium Chloride (KCl 40 Meq/30 ml Liq) 40 meq UNSCH PRN PO/TUBE SEE LABEL COMMENTS; Start 12/23/15 at 08:30; Stop 01/09/16 at 11:14; Status DC Potassium Phosphate 2000 mg 2,000 mg UNSCH PRN PO/TUBE SEE LABEL COMMENTS; Start 12/23/15 at 08:30; Stop 01/09/16 at 11:14; Status DC Potassium Phosphate 30 mmol/ Sodium Chloride 260 ml @ 42 mls/hr UNSCH PRN IV SEE LABEL COMMENTS; Start 12/23/15 at 08:30; Stop 01/09/16 at 11:14; Status DC Sodium Chloride 1,000 ml @ 75 mls/hr [id number] IV ; Start 12/23/15 at 08:30; Stop 12/23/15 at 08:30; Status DC Piperacillin Sod/ Tazobactam Sod 50 ml @ 100 mls/hr Q6H IV Last administered on 12/30/15at 10:02; Start 12/23/15 at 10:00; Stop 12/30/15 at 14:50; Status DC Vancomycin HCl/ Sodium Chloride (Vancomycin Inj/ NS 250 ml Inj) 250 ml @ 250 mls/hr Q12H IV Last administered on 12/29/15at 09:01; Start 12/24/15 at 08:45; Stop 12/29/15 at 15:33; Status DC Warfarin Sodium (Coumadin) 4 mg DAILY@16 PO Last administered on 12/28/15at 16:00 ; Start 12/26/15 at 16:00; Stop 01/04/16 at 12:25; Status DC Levetriacetam (Keppra Liq) 500 mg Q12HR TUBE Last administered on 11/03/16t 09 :46; Start 12/27/15 at 21:00 Docusate Sodium (Colace Liq) 100 mg Q12HR TUBE Last administered on 01/15/16at 09:01; Start 12/27/15 at 21:00; Stop 04/16/16 at 08:50; Status DC Sennosides (Senna Liq) 8.8 mg DAILY TUBE Last administered on 01/15/16at 09:01 ; Start 12/27/15 at 17:00; Stop 01/15/16 at 20:37; Status DC Bisacodyl (Dulcolax Supp) 10 mg ONCE ONCE RECTAL ; Start 12/27/15 at 16:15; Stop 12/27/15 at 16:15; Status DC Albuterol/ Ipratropium (Duoneb Neb) 1 ampule Q4HR NEB PRN NEB RESPIRATORY DISTRESS Last administered on 12/29/15at 12:17; Start 12/27/15 at 22:00; Stop at 08:16; Status DC Bisacodyl (Dulcolax Supp) 10 mg ONCE ONCE RECTAL ; Start 12/28/15 at 12:00; Stop 12/28/15 at 12:01; Status DC Sodium Chloride (Sodium Chloride) 1 gm BID TUBE Last administered on 12/29/15at 09:02; Start 12/28/15 at 21:00; Stop 12/29/15 at 15:43; Status DC Lactulose (Lactulose Liq) 30 ml DAILY TUBE Last administered on 12/29/15at 09:02 ; Start 12/28/15 at 20:30; Stop 12/29/15 at 15:43; Status DC Levofloxacin (Levaquin) 750 mg DAILY@16 TUBE ; Start 12/29/15 at 16:00; Stop 05/05 at 16:00; Status DC Sodium Chloride (Sodium Chloride) 1 gm DAILY TUBE Last administered on at 07:29; Start 12/30/15 at 09:00; Stop 12/31/15 at 14:08; Status DC Water 200 ml 200 ml Q6HR G-TUBE Last administered on 12/31/15at 04:19; Start 06/05 at 14:45; Stop 12/31/15 at 07:31; Status DC Ceftriaxone Sodium/Sodium Chloride (Rocephin Inj/NS Inj) 100 ml @ 200 mls/hr Q12H IV Last administered on 01/03/16at 02:47; Start 12/30/15 at 15:00; Stop at 10:09; Status DC Acetaminophen (Tylenol 650 Mg/ 20 ml Liq) 650 mg Q6H PRN TUBE TEMP >100.4 Last administered on 10/25/16t 15:13; Start 12/30/15 at 15:15 Lactobacillus Acidophilus (Lactinex Pkt) 1 gm BID TUBE Last administered on at 09:00; Start 12/30/15 at 21:00; Stop 02/10/16 at 14:30; Status DC Enoxaparin Sodium (Lovenox Inj) 90 mg Q12H SQ Last administered on 01/01/16at 21 :57; Start 12/31/15 at 08:00; Stop 01/03/16 at 10:33; Status DC Water (Free Water) 100 ml Q12H G-TUBE ; Start 12/31/15 at 18:00; Stop 12/31/15 at 18:00; Status DC Acetaminophen/ Hydrocodone Bitart ([place] 5-325 Mg) 1 tab Q6H PRN PO PAIN Last administered on 05/26/16at 20:46; Start 12/31/15 at 15:00; Stop 06/02/16 at 21: 44; Status DC Fentanyl Citrate (Sublimaze Inj) 25 mcg Q1H PRN IV PUSH BREAKTHROUGH PAIN; Start 12/31/15 at 15:00; Stop 03/06/16 at 10:03; Status DC Water (Free Water) 200 ml Q8H G-TUBE Last administered on 01/01/16at 17:55; Start 12/31/15 at 18:00; Stop 01/02/16 at 09:56; Status DC Sodium Chloride (Sodium Chloride) 1 gm BID TUBE Last administered on 01/03/16at 07:39; Start 12/31/15 at 21:00; Stop 01/03/16 at 09:08; Status DC Miscellaneous Information Hold Anticoagulation after midni... ONCE ONCE OTHER ; Start 01/01/16 at 10:15; Stop 01/01/16 at 10:29; Status DC Sodium Chloride (NS 1000 ml Inj) 1,000 ml @ 50 mls/hr Q20H IV Last administered on 01/02/16at 12:26; Start 01/01/16 at 18:00; Stop 01/03/16 at 10:07 ; Status DC Midazolam HCl (Versed Inj) 5 mg STK-MED ONCE .ROUTE ; Start 01/02/16 at 12:47; Stop 01/02/16 at 12:48; Status DC Vecuronium [place] (Norcuron 10 Mg Inj) 10 mg STK-MED ONCE .ROUTE ; Start at 12:47; Stop 01/02/16 at 12:48; Status DC Fentanyl Citrate (Sublimaze Inj) 250 mcg ONCE ONCE IV PUSH Last administered on 01/02/16at 15:00; Start 01/02/16 at 15:00; Stop 01/02/16 at 15:01; Status DC Midazolam HCl (Versed Inj) 10 mg ONCE ONCE IV PUSH Last administered on at 15:00; Start 01/02/16 at 15:00; Stop 01/02/16 at 15:01; Status DC Rocuronium [place] (Zemuron Inj) 100 mg BOLUS ONCE IV Last administered on at 15:00; Start 01/02/16 at 15:00; Stop 01/02/16 at 15:01; Status DC Ketamine HCl (Ketalar Inj) 500 mg STK-MED ONCE .ROUTE ; Start 01/02/16 at 14:30 ; Stop 01/02/16 at 14:31; Status DC Propofol 230 mg 230 mg STK-MED ONCE IV ; Start 01/02/16 at 16:51; Stop 01/02/16 at 16:52; Status DC Sodium Chloride (NS 1000 ml Inj) 1,000 ml @ 0 mls/hr Q0M IV ; Start 01/03/16 at 10:15; Stop 01/17/16 at 17:30; Status DC Ranitidine HCl (Zantac Liq) 150 mg Q12HR PO Last administered on 01/17/16at 07: 39; Start 01/04/16 at 09:00; Stop 01/17/16 at 15:23; Status DC Enoxaparin Sodium 90 mg 90 mg Q12HR SQ Last administered on 01/11/16at 10:01; Start 01/04/16 at 09:00; Stop 01/11/16 at 12:35; Status DC Sodium Chloride (NS 500 ml Inj) 500 ml @ 0 mls/hr BOLUS ONCE IV Last administered on 01/03/16at 22:57; Start 01/03/16 at 23:00; Stop 01/03/16 at 23:01 ; Status DC Insulin Aspart (NovoLOG SUPPLEMENTAL SCALE) 1 Q6HR SQ Last administered on at 12:00; Start 01/04/16 at 12:00; Stop 03/24/16 at 13:58; Status DC Potassium Chloride (KCl 40 Meq/30 ml Liq) 40 meq Q4H NG Last administered on at 16:21; Start 01/04/16 at 13:00; Stop 01/04/16 at 17:01; Status DC Warfarin Sodium 5 mg 5 mg DAILY@1600 PO Last administered on 01/09/16at 17:21; Start 01/04/16 at 16:00; Stop 01/10/16 at 10:06; Status DC Pharmacy Profile Note (Coumadin Consult Pharmacy) 0 ml @ 0 mls/hr UNSCH XX ; Start 01/04/16 at 12:30; Stop 04/20/16 at 12:04; Status DC Insulin Detemir (Levemir Inj) 10 units Q12HR SQ Last administered on 01/05/16at 08:00; Start 01/04/16 at 21:00; Stop 01/05/16 at 08:42; Status DC Insulin Detemir (Levemir Inj) 5 units NOW ONCE SQ Last administered on at 13:28; Start 01/04/16 at 12:45; Stop 01/04/16 at 12:46; Status DC Albuterol/ Ipratropium (Duoneb Neb) 1 ampule Q4HR NEB PRN NEB dyspnea Last administered on 04/19/16at 02:24; Start 01/07/16 at 08:15; Stop 04/25/16 at 18:54 ; Status DC Warfarin Sodium (Coumadin) 7.5 mg ONCE ONCE PO Last administered on 01/07/16at 16:40; Start 01/07/16 at 16:00; Stop 01/07/16 at 16:01; Status DC Nystatin (Mycostatin Powder) 1 applic Q12HR TOPICAL Last administered on t 09:00; Start 01/08/16 at 21:00 Ipratropium [place] (Atrovent Neb) 0.5 mg TID NEB NEB Last administered on 02/20at 13:17; Start 01/08/16 at 20:00; Stop 02/21/16 at 17:52; Status DC Warfarin Sodium (Coumadin) 5 mg DAILY@1600 PO Last administered on 01/11/16at 14 :26; Start 01/11/16 at 16:00; Stop 01/12/16 at 09:45; Status DC Warfarin Sodium (Coumadin) 6 mg ONCE PO Last administered on 01/10/16at 17:10; Start 01/10/16 at 16:00; Stop 01/10/16 at 21:00; Status DC Metoprolol Tartrate (Lopressor) 50 mg Q12HR GT Last administered on 01/11/16at 10:02; Start 01/10/16 at 11:00; Stop 01/11/16 at 12:30; Status DC Metoprolol Tartrate (Lopressor) 50 mg TID GT Last administered on 01/14/16at 08: 24; Start 01/11/16 at 13:00; Stop 01/14/16 at 08:28; Status DC Insulin Detemir (Levemir Inj) 10 units HS SQ Last administered on 01/11/16at 22: 23; Start 01/11/16 at 21:00; Stop 01/12/16 at 11:47; Status DC Warfarin Sodium (Coumadin) 4 mg DAILY@16 PO ; Start 01/12/16 at 16:00; Stop at 16:00; Status DC Insulin Detemir (Levemir Inj) 20 units HS SQ Last administered on 01/13/16at 20: 26; Start 01/12/16 at 21:00; Stop 01/14/16 at 08:28; Status DC Warfarin Sodium (Coumadin) 2 mg DAILY@16 PO Last administered on 01/13/16at 17: 05; Start 01/12/16 at 16:00; Stop 01/14/16 at 11:23; Status DC Insulin Detemir (Levemir Inj) 22 units HS SQ Last administered on 01/14/16at 21: 37; Start 01/14/16 at 21:00; Stop 01/15/16 at 10:06; Status DC Metoprolol Tartrate (Lopressor) 75 mg TID GT Last administered on 03/10/16at 17: 43; Start 01/14/16 at 09:00; Stop 03/10/16 at 21:13; Status DC Miscellaneous (Pill Splitter) 1 ea UNSCH PRN OTHER SEE LABEL COMMENTS; Start at 08:30 Warfarin Sodium (Coumadin) 4 mg DAILY@1600 PO Last administered on 01/21/16at 16: 51; Start 01/14/16 at 16:00; Stop 01/23/16 at 09:29; Status DC Patient Medication Teaching (Coumadin Booklet) 1 ONCE ONCE XX ; Start 01/14/16 at 16:00; Stop 01/14/16 at 16:01; Status DC Insulin Detemir (Levemir Inj) 24 units HS SQ Last administered on 03/04/16at 21: 09; Start 01/15/16 at 21:00; Stop 03/05/16 at 11:17; Status DC Citalopram Hydrobromide (CeleXA) 20 mg DAILY PEG Last administered on at 08:01; Start 01/16/16 at 09:00; Stop 01/16/16 at 09:41; Status DC Sennosides (Senna Liq) 8.8 mg BID TUBE Last administered on 02/20/16at 08:32; Start 01/15/16 at 21:00; Stop 02/20/16 at 16:13; Status DC Gadodiamide 18 ml 18 ml STK-MED ONCE IV ; Start 01/16/16 at 20:40; Stop at 20:41; Status DC Sodium Chloride (NS 1000 ml Inj) 1,000 ml @ 125 mls/hr Q8H IV Last administered on 01/17/16at 15:11; Start 01/17/16 at 15:00; Stop 01/17/16 at 17:31 ; Status DC Ranitidine HCl 150 mg 150 mg Q24H PO Last administered on 07/28/16t 08:54; Start 01/18/16 at 09:00; Stop 07/30/16 at 10:05; Status DC Sodium Chloride 1,000 ml @ 75 mls/hr [id number] IV Last administered on at 05:22; Start 01/17/16 at 18:00; Stop 01/18/16 at 09:28; Status DC Sodium Chloride/ Sterile Water (Sodium Chloride 23.4% Inj/Sterile Water For Inj ) 1,009.625 ml @ 60 mls/hr [id number] IV Last administered on 01/21/16at 22:46; Start 01/18/16 at 11:00; Stop 01/22/16 at 10:09; Status DC Potassium Chloride (KCl) 40 meq ONCE ONCE PO ; Start 01/18/16 at 09:30; Stop at 09:31; Status DC Potassium Chloride (KCl 40 Meq/30 ml Liq) 40 meq ONCE ONCE TUBE Last administered on 01/18/16at 11:08; Start 01/18/16 at 11:00; Stop 01/18/16 at 11:01 ; Status DC Water (Free Water) 300 ml Q4HR TUBE Last administered on 01/19/16at 08:00; Start 01/18/16 at 12:00; Stop 01/19/16 at 10:43; Status DC Water (Free Water) 400 ml Q4HR TUBE Last administered on 04/16/16at 04:00; Start 01/19/16 at 12:00; Stop 04/16/16 at 09:09; Status DC Potassium Chloride (KCl 40 Meq/30 ml Liq) 40 meq ONCE ONCE NG Last administered on 01/19/16at 11:41; Start 01/19/16 at 11:00; Stop 01/19/16 at 11:01; Status DC Potassium Chloride 60 meq 60 meq ONCE ONCE PO/TUBE Last administered on 13:30; Start 01/21/16 at 11:15; Stop 01/21/16 at 11:27; Status DC Sodium Chloride (1/2 NS 1000 ml Inj) 1,000 ml @ 30 mls/hr Q24H IV Last administered on 02/06/16at 11:26; Start 01/22/16 at 11:00; Stop 02/07/16 at 14:49 ; Status DC Warfarin Sodium (Coumadin) 3 mg DAILY@16 PO Last administered on 01/23/16 17:19 ; Start 01/23/16 at 16:00; Stop 01/24/16 at 14:05; Status DC Warfarin Sodium (Coumadin) 3 mg DAILY@16 PO Last administered on 01/25/16at 15:59 ; Start 01/25/16 at 16:00; Stop 01/26/16 at 15:04; Status DC Warfarin Sodium (Coumadin) 4 mg ONCE@1600 ONCE PO Last administered on at 16:55; Start 01/24/16 at 16:00; Stop 01/24/16 at 16:01; Status DC Warfarin Sodium (Coumadin) 3 mg DAILY@16 PO ; Start 01/27/16 at 16:00; Stop at 16:00; Status DC Warfarin Sodium (Coumadin) 4 mg ONCE@1600 ONCE PO Last administered on at 16:52; Start 01/26/16 at 16:00; Stop 01/26/16 at 16:01; Status DC Potassium Chloride (KCl 40 Meq/30 ml Liq) 80 meq ONCE ONCE PO Last administered on 01/27/16at 07:45; Start 01/27/16 at 07:45; Stop 01/27/16 at 08:10; Status DC Warfarin Sodium (Coumadin) 4 mg DAILY@16 PO Last administered on 02/02/16at 17: 22; Start 01/27/16 at 16:00; Stop 02/03/16 at 11:37; Status DC Acetic Acid (Acetic Acid 0.25% Irr Btl) 10 ml Q8HR IRRIGATION Last administered on 7/18/16at 06:00; Start 01/28/16 at 22:00; Stop 02/05/16 at 15:51 ; Status DC Warfarin Sodium 3 mg 3 mg DAILY@1600 PO Last administered on 02/11/16at 17:34; Start 02/03/16 at 16:00; Stop 02/12/16 at 12:45; Status DC Ceftriaxone Sodium/Sodium Chloride (Rocephin Inj/NS Inj) 100 ml @ 200 mls/hr Q24H IV Last administered on 02/10/16at 05:23; Start 02/05/16 at 06:30; Stop at 14:32; Status DC Acetic Acid (Acetic Acid 0.25% Irr Btl) 10 ml Q8HR IRRIGATION ; Start 02/05/16 at 16:00; Status Cancel Acetic Acid (Acetic Acid 0.25% Irr Btl) 10 ml Q8HR IRRIGATION Last administered on 11/03/16t 05:08; Start 02/05/16 at 16:00 Lactobacillus Acidophilus (Lactinex) 1 tab Q12HR PO Last administered on at 08:25; Start 02/10/16 at 21:00; Stop 02/12/16 at 16:05; Status DC Warfarin Sodium (Coumadin) 4 mg DAILY@1600 PO Last administered on 02/14/16at 15 :56; Start 02/12/16 at 16:00; Stop 02/15/16 at 10:17; Status DC Paroxetine HCl (Paxil Liq) 20 mg DAILY PEG Last administered on 02/25/16at 07:33 ; Start 02/16/16 at 09:00; Stop 02/25/16 at 10:36; Status DC Warfarin Sodium (Coumadin) 3 mg DAILY@1600 PO Last administered on 02/19/16 16: 42; Start 02/15/16 at 16:00; Stop 02/20/16 at 08:50; Status DC Warfarin Sodium (Coumadin) 4 mg DAILY@16 PO Last administered on 02/21/16at 15:54 ; Start 02/20/16 at 16:00; Stop 02/22/16 at 08:46; Status DC Sennosides (Senna Liq) 8.8 mg DAILY TUBE Last administered on 05/26/16at 08:14 ; Start 02/21/16 at 09:00; Stop 05/27/16 at 11:51; Status DC Albuterol Sulfate (Albuterol Neb) 2.5 mg QID NEB INH Last administered on at 19:51; Start 02/21/16 at 20:00; Stop 02/25/16 at 20:00; Status DC Acetylcysteine (Mucomyst 10% Neb) 1 ml QID NEB NEB Last administered on at 16:32; Start 02/21/16 at 20:00; Stop 02/23/16 at 16:01; Status DC Warfarin Sodium (Coumadin) 3 mg DAILY@16 PO Last administered on 02/22/16at 15:59 ; Start 02/22/16 at 16:00; Stop 02/23/16 at 08:56; Status DC Warfarin Sodium (Coumadin) 3 mg DAILY@16 PO Last administered on 02/28/16at 16: 17; Start 02/24/16 at 16:00; Stop 02/29/16 at 10:04; Status DC Warfarin Sodium (Coumadin) 2 mg ONCE PO Last administered on 02/23/16at 16:22; Start 02/23/16 at 16:00; Stop 02/23/16 at 21:00; Status DC Paroxetine HCl (Paxil Liq) 20 mg DAILY@1900 PEG Last administered on 03/08/16at 18:11; Start 02/26/16 at 19:00; Stop 03/09/16 at 11:31; Status DC Warfarin Sodium (Coumadin) 3 mg DAILY@16 PO Last administered on 03/06/16at 16: 22; Start 03/01/16 at 16:00; Stop 03/09/16 at 10:30; Status DC Warfarin Sodium (Coumadin) 1 mg ONCE PO Last administered on 02/29/16at 17:28; Start 02/29/16 at 16:00; Stop 02/29/16 at 21:00; Status DC Insulin Detemir (Levemir Inj) 27 units HS SQ Last administered on 03/05/16at 20: 25; Start 03/05/16 at 21:00; Stop 03/06/16 at 10:03; Status DC Patient Medication Teaching (Coumadin Booklet) 1 ONCE ONCE XX Last administered on 03/05/16at 16:00; Start 03/05/16 at 16:00; Stop 03/05/16 at 16:01 ; Status DC Insulin Detemir (Levemir Inj) 30 units HS SQ Last administered on 03/21/16at 22: 32; Start 03/06/16 at 21:00; Stop 03/22/16 at 14:48; Status DC Trimethoprim/ Sulfamethoxazole (Bactrim 800-160 Mg/20 ml Liq) 20 ml Q12HR PO Last administered on 03/14/16at 08:01; Start 03/07/16 at 11:15; Stop 03/14/16 at 11:14; Status DC Lorazepam (Ativan Inj) 0.5 mg Q4H PRN IV PUSH seizures or agitation; Start at 23:00 Metronidazole (Flagyl) 500 mg Q8H PO Last administered on 03/14/16at 15:51; Start 03/08/16 at 17:00; Stop 03/14/16 at 23:00; Status DC Warfarin Sodium (Coumadin) 2 mg DAILY@16 PO Last administered on 03/09/16at 17: 20; Start 03/09/16 at 16:00; Stop 03/10/16 at 10:33; Status DC Paroxetine HCl (Paxil) 20 mg DAILY@1900 PEG Last administered on 03/11/16at 17: 55; Start 03/09/16 at 19:00; Stop 03/12/16 at 08:31; Status DC Warfarin Sodium 3 mg 3 mg DAILY@16 PO Last administered on 04/12/16at 15:28; Start 03/10/16 at 16:00; Stop 04/12/16 at 16:39; Status DC Pharmacy Profile Note 0 ml @ 0 mls/hr UNSCH OTHER ; Start 03/10/16 at 14:15; Stop 03/18/16 at 11:33; Status DC Vancomycin HCl/ Sodium Chloride (Vancomycin Inj/ NS 500 ml Inj) 530 ml @ 265 mls/hr Q12H IV Last administered on 03/17/16at 16:26; Start 03/10/16 at 16:00; Stop 03/17/16 at 23:00; Status DC Miscellaneous Information SPECIFIC LAB TO BE ... ONCE ONCE XX Last administered on 03/12/16at 04:45; Start 03/12/16 at 03:45; Stop 03/12/16 at 03:46 ; Status DC Metoprolol Tartrate (Lopressor) 75 mg Q8HR PO Last administered on 04/02/16at 13 :13; Start 03/10/16 at 22:00; Stop 04/02/16 at 17:31; Status DC Paroxetine HCl (Paxil Liq) 20 mg DAILY@1900 PEG Last administered on 11/02/16t 18:46; Start 03/12/16 at 19:00 Warfarin Sodium (Coumadin) 1 mg ONCE PO Last administered on 03/21/16at 16:24; Start 03/21/16 at 16:00; Stop 03/21/16 at 21:00; Status DC Warfarin Sodium (Coumadin) 1 mg ONCE PO Last administered on 03/22/16at 17:46; Start 03/22/16 at 16:00; Stop 03/22/16 at 21:00; Status DC Insulin Detemir (Levemir Inj) 32 units HS SQ Last administered on 03/22/16at 20: 18; Start 03/22/16 at 21:00; Stop 03/23/16 at 13:35; Status DC Diltiazem HCl (Cardizem Cd) 120 mg DAILY PO Last administered on 04/14/16at 07: 43; Start 03/22/16 at 16:00; Stop 04/14/16 at 14:39; Status DC Hyoscyamine Sulfate (Levsin Liq) 0.125 mg Q4H PRN PEG INCREASED SECRETIONS Last administered on 04/10/16at 08:05; Start 03/22/16 at 15:15; Stop 04/11/16 at 10:24; Status DC Warfarin Sodium (Coumadin) 2 mg ONCE ONCE PO Last administered on 03/23/16 17: 26; Start 03/23/16 at 16:00; Stop 03/23/16 at 16:01; Status DC Insulin Detemir (Levemir Inj) 34 units HS SQ Last administered on 03/23/16at 20: 01; Start 03/23/16 at 21:00; Stop 03/24/16 at 13:53; Status DC Insulin Detemir (Levemir Inj) 35 units HS SQ Last administered on 11/02/16 21: 34; Start 03/24/16 at 21:00 Insulin Aspart (NovoLOG SUPPLEMENTAL SCALE) 1 ACHS SLIDING SCALE SQ Last administered on 04/16/16at 22:27; Start 03/24/16 at 16:00; Stop 04/19/16 at 17:19 ; Status DC Warfarin Sodium (Coumadin) 1 mg ONCE ONCE PO Last administered on 03/30/16at 16 :59; Start 03/30/16 at 16:00; Stop 03/30/16 at 16:01; Status DC Potassium Chloride (KCl 40 Meq/30 ml Liq) 40 meq ONCE ONCE NG Last administered on 03/31/16at 21:28; Start 03/31/16 at 18:30; Stop 03/31/16 at 18:31 ; Status DC Potassium Bicarb/ Potassium Chloride (K-Lyte Cl Eff) 25 meq ONCE ONCE PEG Last administered on 04/02/16at 12:01; Start 04/02/16 at 13:00; Stop 04/02/16 at 13:01; Status DC Metoprolol Tartrate (Lopressor) 75 mg BID PO Last administered on 05/28/16at 21: 03; Start 04/02/16 at 21:00; Stop 05/29/16 at 11:21; Status DC Potassium Bicarb/ Potassium Chloride (K-Lyte Cl Eff) 25 meq ONCE ONCE PEG Last administered on 04/04/16at 14:40; Start 04/04/16 at 12:30; Stop 04/04/16 at 12:31; Status DC Linezolid (Zyvox) 600 mg Q12HR PO Last administered on 04/16/16at 09:11; Start 04/05/16 at 15:00; Stop 04/16/16 at 12:00; Status DC Artificial Tears (Lacrilube Opht Oint) 1 applic Q12HR EACH EYE Last administered on 09/04/16 21:00; Start 04/10/16 at 11:00; Stop 09/05/16 at 14:38 ; Status DC Hyoscyamine Sulfate (Levsin) 0.25 mg Q4H PRN G-TUBE INCREASED SECRETIONS Last administered on 08/31/16 05:02; Start 04/11/16 at 10:30 Diatrizoate Meglum/ Diatrizoate Sod (Md Gastroview Liq) 18 ml ONCE ONCE PO Last administered on 04/12/16at 16:45; Start 04/12/16 at 16:15; Stop 04/12/16 at 16:16; Status DC Warfarin Sodium (Coumadin) 3 mg DAILY@16 PO ; Start 04/13/16 at 16:00; Stop 05/27/16 at 11:51; Status DC Iohexol (Omnipaque 350 Inj) 98 ml STK-MED ONCE IV Last administered on at 21:01; Start 04/12/16 at 21:01; Stop 04/12/16 at 21:02; Status DC Diltiazem HCl (Cardizem Cd) 180 mg DAILY PO ; Start 04/15/16 at 09:00; Stop at 08:50; Status DC Ondansetron HCl (Zofran Inj) 4 mg Q6HR PRN IV PUSH nausea/vomiting Last administered on 08/10/16t 10:16; Start 04/14/16 at 19:45 Diltiazem HCl 60 mg 60 mg QID PO Last administered on 04/25/16at 17:26; Start at 13:00; Stop 04/25/16 at 19:06; Status DC Sodium Chloride 500 ml @ 500 mls/hr BOLUS ONCE IV Last administered on at 09:15; Start 04/15/16 at 09:15; Stop 04/15/16 at 10:14; Status DC Potassium Chloride/Dextrose/ Sodium Chloride (KCl Inj/D5W-NS 1000 ml Inj) 1,005 ml @ 100 mls/hr Q10H3M IV Last administered on 04/15/16at 21:03; Start at 11:00; Stop 04/16/16 at 09:09; Status DC Enoxaparin Sodium (Lovenox Inj) 90 mg Q12H SQ Last administered on 04/16/16at 21 :12; Start 04/16/16 at 09:00; Stop 04/17/16 at 10:37; Status DC Water 200 ml 200 ml Q4HR TUBE Last administered on 11/03/16 11:23; Start 04/16 at 12:00 Sodium Chloride 1,000 ml @ 84 mls/hr [id number] IV Last administered on at 08:38; Start 04/16/16 at 10:00; Stop 04/20/16 at 12:04; Status DC Ceftriaxone Sodium/Sodium Chloride (Rocephin Inj/NS Inj) 100 ml @ 200 mls/hr Q24H IV Last administered on 05/02/16at 13:19; Start 04/16/16 at 12:00; Stop 05/03/16 at 12:06; Status DC Acetaminophen/ Hydrocodone Bitart ([place] 5-325 Mg) 1 tab Q6HR PEG Last administered on 09/17/16t 06:42; Start 04/18/16 at 18:00; Stop 09/17/16 at 09:17 ; Status DC Lactulose (Lactulose Liq) 30 ml NOW ONCE PEG Last administered on 04/19/16at 17 :21; Start 04/19/16 at 17:30; Stop 04/19/16 at 17:31; Status DC Lactulose (Lactulose Liq) 30 ml DAILY PEG Last administered on 05/26/16at 08:14 ; Start 04/20/16 at 09:00; Stop 05/27/16 at 11:39; Status DC Potassium Bicarb/ Potassium Chloride (K-Lyte Cl Eff) 50 meq ONCE ONCE PO Last administered on 04/20/16at 05:52; Start 04/20/16 at 05:45; Stop 04/20/16 at 05:46; Status DC Furosemide (Lasix Inj) 20 mg ONCE ONCE IV PUSH Last administered on 04/20/16at 17:35; Start 04/20/16 at 12:00; Stop 04/20/16 at 12:06; Status DC Insulin Aspart (NovoLOG SUPPLEMENTAL SCALE) 1 ACHS SLIDING SCALE SQ Last administered on 06/02/16at 12:10; Start 04/20/16 at 16:00; Stop 06/02/16 at 21: 44; Status DC Dextrose (D50w (Vial) Inj) 25 ml UNSCH PRN IV HYPOGLYCEMIA-SEE COMMENTS; Start 04/20/16 at 12:00 Glucagon (Glucagon Inj) 1 mg UNSCH PRN IM/SQ HYPOGLYCEMIA-SEE COMMENTS; Start 04/20/16 at 12:00 Lactobacillus Acidophilus (Lactinex) 1 tab Q12HR PEG Last administered on 06/06at 21:34; Start 04/22/16 at 09:00; Stop 06/07/16 at 09:32; Status DC Furosemide (Lasix Inj) 20 mg Q12H IV PUSH Last administered on 04/24/16at 08:52 ; Start 04/22/16 at 09:00; Stop 04/24/16 at 09:25; Status DC Potassium Bicarb/ Potassium Chloride (K-Lyte Cl Eff) 25 meq Q12HR TUBE Last administered on 05/27/16at 08:17; Start 04/22/16 at 09:00; Stop 05/27/16 at 11:51 ; Status DC Albumin Human (Albumin 25% Inj) 12.5 gm Q12H IV Last administered on 04/24/16at 08:46; Start 04/22/16 at 09:00; Stop 04/24/16 at 09:25; Status DC Furosemide (Lasix Inj) 20 mg DAILY IV PUSH Last administered on 05/08/16at 09: 01; Start 04/25/16 at 09:00; Stop 05/08/16 at 11:06; Status DC Albumin Human (Albumin 25% Inj) 12.5 gm DAILY IV Last administered on at 09:02; Start 04/25/16 at 10:00; Stop 05/08/16 at 11:06; Status DC Furosemide (Lasix Inj) 40 mg ONCE ONCE IV PUSH Last administered on 04/25/16at 18:15; Start 04/25/16 at 18:15; Stop 04/25/16 at 18:16; Status DC Albuterol/ Ipratropium (Duoneb Neb) 1 ampule Q6HR NEB NEB Last administered on 04/27/16at 15:52; Start 04/25/16 at 18:30; Stop 04/27/16 at 19:45; Status DC Ipratropium [place] (Atrovent Neb) 0.5 mg Q6HR NEB NEB Last administered on at 16:51; Start 04/25/16 at 22:00; Stop 04/27/16 at 16:44; Status DC Levalbuterol HCl (Xopenex Neb) 0.31 mg Q4HR NEB NEB Last administered on at 23:48; Start 04/25/16 at 20:00; Stop 04/27/16 at 16:43; Status DC Levalbuterol HCl (Xopenex Neb) 0.31 mg Q2HR NEB PRN NEB SHORTNESS OF BREATH; Start 04/25/16 at 18:45; Stop 04/28/16 at 10:50; Status DC Diltiazem HCl (Cardizem) 90 mg QID PEG Last administered on 07/17/16at 09:27; Start 04/25/16 at 21:00; Stop 07/17/16 at 17:52; Status DC Diltiazem HCl (Cardizem) 30 mg NOW ONCE PEG Last administered on 04/25/16at 21: 36; Start 04/25/16 at 19:15; Stop 04/25/16 at 19:16; Status DC Levalbuterol HCl (Xopenex Neb) 0.31 mg Q8HR NEB NEB ; Start 04/28/16 at 00:00; Stop 04/28/16 at 10:50; Status DC Levalbuterol HCl (Xopenex Neb) 0.63 mg Q4HR NEB PRN NEB SHORTNESS OF BREATH Last administered on 05/04/16at 15:26; Start 04/28/16 at 11:00; Stop 05/04/16 at 00:51; Status DC Levalbuterol HCl (Xopenex Neb) 0.63 mg Q8HR NEB NEB Last administered on 05/04at 00:07; Start 04/28/16 at 16:00; Stop 05/04/16 at 00:50; Status DC Polyethylene Glycol/ Electrolytes 4000 ml 4,000 ml ONCE ONCE PO Last administered on 05/05/16at 08:10; Start 05/05/16 at 08:45; Stop 05/05/16 at 08 :46; Status DC Cefazolin Sodium/ Dextrose 50 ml @ 100 mls/hr ONCE ONCE IV ; Start 05/06/16 at 14:00; Stop 05/06/16 at 14:29; Status DC Metronidazole 100 ml @ 100 mls/hr ONCE ONCE IV Last administered on at 14:00; Start 05/06/16 at 14:00; Stop 05/06/16 at 14:59; Status DC Ceftriaxone Sodium/Sodium Chloride (Rocephin Inj/NS Inj) 100 ml @ 200 mls/hr Q24H IV Last administered on 06/09/16at 12:36; Start 05/03/16 at 12:00; Stop 06/10/16 at 12:48; Status DC Levalbuterol HCl (Xopenex Neb) 0.63 mg Q8HR NEB NEB Last administered on 05/05at 08:00; Start 05/04/16 at 00:49; Stop 05/05/16 at 08:07; Status DC Levalbuterol HCl (Xopenex Neb) 0.63 mg Q4HR NEB PRN NEB SHORTNESS OF BREATH Last administered on 10/18/16 15:44; Start 05/05/16 at 12:00 Levalbuterol HCl (Xopenex Neb) 0.63 mg Q8HR NEB NEB Last administered on 05/08at 23:56; Start 05/05/16 at 08:15; Stop 05/09/16 at 08:15; Status DC Potassium Bicarb/ Potassium Chloride (K-Lyte Cl Eff) 25 meq DAILY TUBE Last administered on 11/03/16 09:47; Start 05/28/16 at 09:00 Aspirin (Aspirin) 325 mg DAILY TUBE Last administered on 11/03/16 09:47; Start 05/27/16 at 11:40 Docusate Sodium (Colace Liq) 100 mg DAILY PRN PO constipation Last administered on 08/16/16 21:09; Start 05/27/16 at 11:45; Stop 08/31/16 at 09:00 ; Status DC Metoprolol Tartrate (Lopressor) 50 mg BID PO Last administered on 08/23/16 09: 03; Start 05/29/16 at 21:00; Stop 08/23/16 at 15:33; Status DC Acetaminophen/ Hydrocodone Bitart ([place] 5-325 Mg) 1 tab Q6H PRN TUBE BREAKTHROUGH PAIN Last administered on 08/02/16 15:11; Start 06/03/16 at 03:00 ; Stop 09/17/16 at 14:33; Status DC Insulin Aspart (NovoLOG SUPPLEMENTAL SCALE) 1 ACHS SLIDING SCALE SQ Last administered on 06/06/16at 21:35; Start 06/03/16 at 07:00; Stop 06/07/16 at 12 :24; Status DC Lactobacillus Acidophilus (Lactinex) 1 tab TID PEG Last administered on 09:13; Start 06/07/16 at 13:00; Stop 10/13/16 at 12:08; Status DC Insulin Aspart 1 1 AC BREAKFAST SQ Last administered on 10/28/16 06:13; Start 06/08/16 at 07:00 Ceftriaxone Sodium/Sodium Chloride (Rocephin Inj/NS Inj) 100 ml @ 200 mls/hr Q24H IV Last administered on 07/28/16 12:19; Start 06/10/16 at 12:00; Stop 07/29/16 at 13:30; Status DC Heparin Sodium (Porcine) (Heparin Inj) 5,000 units Q12HR SQ Last administered on 06/11/16at 00:58; Start 06/10/16 at 14:15; Stop 06/11/16 at 06:21; Status DC Heparin Sodium (Porcine) (Heparin Inj) 5,000 units Q8HR SQ Last administered on 11/03/16 05:08; Start 06/11/16 at 14:00 Diltiazem HCl (Cardizem) 30 mg QID PEG Last administered on 08/16/16 08:31; Start 07/17/16 at 18:00; Stop 08/16/16 at 12:06; Status DC Bacitracin 1 applic 1 applic BID TOP Last administered on 11/03/16 09:49; Start 07/20/16 at 10:00 Lactated Ringer's 1,000 ml @ 30 mls/hr Q24H IV ; Start 07/21/16 at 17:45; Stop 08/14/16 at 12:08; Status DC Sodium Chloride (NS 500 ml Inj) 500 ml @ 30 mls/hr [id number] IV ; Start 07/21/16 at 17:45; Stop 07/22/16 at 17:44; Status DC Insulin Human Regular (NovoLIN R INJ) See Protocol Table ... UNSCH X1 PRN SQ SEE PROTOCOL; Start 07/21/16 at 17:45; Stop 07/22/16 at 17:44; Status DC Metoprolol Tartrate (Lopressor) 25 mg UNSCH X1 PRN PO SEE LABEL COMMENTS; Start 07/21/16 at 17:45; Stop 07/22/16 at 17:44; Status DC Lidocaine/ Epinephrine (Xylocaine-Epi 1%-1:100,000 Inj) 40 ml STK-MED ONCE .ROUTE Last administered on 07/22/16 10:56; Start 07/22/16 at 10:04; Stop at 10:05; Status DC Ketamine HCl (Ketalar Inj) 500 mg STK-MED ONCE .ROUTE ; Start 07/22/16 at 10:50; Stop 07/22/16 at 10:51; Status DC Propofol 600 mg 600 mg STK-MED ONCE IV ; Start 07/22/16 at 12:00; Stop 07/23/16 at 14:36; Status DC Dextrose 1,000 ml @ 40 mls/hr Q24H ONCE IV Last administered on 07/28/16 14:33 ; Start 07/28/16 at 14:00; Stop 07/29/16 at 13:59; Status DC Ampicillin Sodium/ Sulbactam Sodium/ Sodium Chloride (Unasyn Inj/NS Inj) 100 ml @ 200 mls/hr Q6H IV Last administered on 08/01/16 12:30; Start 07/29/16 at 14: 00; Stop 08/01/16 at 14:13; Status DC Ondansetron HCl 4 mg 4 mg ONCE ONCE IV PUSH Last administered on 07/30/16 02: 46; Start 07/30/16 at 00:30; Stop 07/30/16 at 00:33; Status DC Lactated Ringer's 1,000 ml @ 30 mls/hr Q24H IV ; Start 07/30/16 at 06:00; Stop 08/14/16 at 12:09; Status DC Sodium Chloride (NS 500 ml Inj) 500 ml @ 30 mls/hr [id number] IV ; Start 07/30/16 at 06:00; Stop 07/31/16 at 05:59; Status DC Pantoprazole Sodium (Protonix Inj) 40 mg Q12H IV PUSH Last administered on 11/03 11:23; Start 07/30/16 at 10:15 Propofol 200 mg 200 mg STK-MED ONCE IV ; Start 07/30/16 at 09:41; Stop 07/30/16 at 10:19; Status DC Piperacillin Sod/ Tazobactam Sod (Zosyn 4.5 Gm Premix) 100 ml @ 200 mls/hr Q6H IV Last administered on 08/07/16 09:37; Start 08/01/16 at 16:00; Stop at 16:10; Status DC Linezolid (Zyvox) 600 mg Q12HR PO Last administered on 08/22/16 09:10; Start at 21:00; Stop 08/22/16 at 15:55; Status DC Sodium Chloride ([place]) 1 spray BID NASAL Last administered on 09:00; Start 08/01/16 at 21:00 Metronidazole 500 mg 500 mg Q8H PO Last administered on 08/08/16 08:28; Start 08/07/16 at 16:00; Stop 08/08/16 at 16:10; Status DC Sodium Chloride (NS 1000 ml Inj) 1,000 ml @ 42 mls/hr [id number] IV Last administered on 08/14/16 12:44; Start 08/14/16 at 12:00; Stop 08/15/16 at 10:56 ; Status DC Fentanyl Citrate (fentaNYL INJ) 250 mcg STK-MED ONCE .ROUTE Last administered on 08/14/16 15:36; Start 08/14/16 at 15:36; Stop 08/14/16 at 15:37; Status DC Iohexol (Omnipaque 350 Inj) 30 ml STK-MED ONCE G-TUBE Last administered on 08/14 15:45; Start 08/14/16 at 15:52; Stop 08/14/16 at 15:53; Status DC Diltiazem HCl (Cardizem) 30 mg QID PEG Last administered on 11/03/16 09:48; Start 08/16/16 at 13:00 Polyethylene Glycol (Miralax) 17 gm ONCE ONCE PEG Last administered on 11:32; Start 08/17/16 at 12:00; Stop 08/17/16 at 12:01; Status DC Amoxicillin 500 mg 500 mg Q8HR PO Last administered on 11/03/16 05:08; Start 08/22/16 at 22:00 Cefepime HCl/ Sodium Chloride (Maxipime Inj/NS Inj) 100 ml @ 200 mls/hr Q8H IV Last administered on 09/03/16 10:46; Start 08/23/16 at 16:00; Stop 09/03/16 at 15:02; Status DC Metoprolol Tartrate (Lopressor) 75 mg BID PO Last administered on 09/13/16 08: 42; Start 08/23/16 at 21:00; Stop 09/13/16 at 13:09; Status DC Docusate Sodium (Colace Liq) 100 mg BID PO Last administered on 11/03/16 09:45 ; Start 08/30/16 at 21:00 Sennosides (Senokot) 17.2 mg DAILY PO Last administered on 09/25/16 08:36; Start 08/30/16 at 14:00; Stop 09/25/16 at 16:09; Status DC Lactulose (Lactulose Liq) 30 ml DAILY PO Last administered on 11/03/16 09:46; Start 09/02/16 at 15:30 Artificial Tears (Tears Naturale Opth Soln) 1 drop BID EACH EYE Last administered on 11/03/16 09:49; Start 09/05/16 at 21:00 Midazolam HCl (Versed Inj) 2 mg STK-MED ONCE .ROUTE Last administered on 11:37; Start 09/09/16 at 11:37; Stop 09/09/16 at 11:38; Status DC Fentanyl Citrate (fentaNYL INJ) 100 mcg STK-MED ONCE .ROUTE Last administered on 09/09/16 11:38; Start 09/09/16 at 11:38; Stop 09/09/16 at 11:39; Status DC Iohexol (Omnipaque 350 Inj) 20 ml STK-MED ONCE G-TUBE Last administered on 09/09 11:50; Start 09/09/16 at 11:50; Stop 09/09/16 at 12:15; Status DC Metoprolol Tartrate (Lopressor) 50 mg BID PO Last administered on 11/03/16 09: 48; Start 09/13/16 at 21:00 Acetaminophen/ Hydrocodone Bitart ([place] 5-325 Mg) 1 tab Q6H PEG ; Start at 11:00; Stop 09/17/16 at 14:25; Status DC Acetaminophen/ Hydrocodone Bitart ([place] 5-325 Mg) 1 tab DAILY@1600 PO ; Start 09/17/16 at 16:00; Stop 09/17/16 at 16:00; Status DC Morphine Sulfate (Morphine Inj) 1 mg Q24H PRN IV PUSH dressing change 30 min before Last administered on 10/22/16 02:00; Start 09/17/16 at 14:30 Acetaminophen/ Hydrocodone Bitart ([place] 5-325 Mg) 1 tab DAILY@0000 PO Last administered on 09/17/16 23:43; Start 09/18/16 at 00:00; Stop 09/20/16 at 12:46; Status DC Acetaminophen/ Hydrocodone Bitart ([place] 5-325 Mg) 1 tab Q8H PO Last administered on 10/13/16 13:38; Start 09/20/16 at 13:00; Stop 10/13/16 at 18:29 ; Status DC Ketoconazole (Niz[place] 2% Cream) 1 applic Q12HR TOPICAL Last administered on 21:34; Start 09/24/16 at 21:00 Sennosides (Senna Liq) 8.8 mg DAILY@1600 PO Last administered on 11/02/16 16: 37; Start 09/25/16 at 17:00 Sodium Biphosphate/ Sodium Phosphate (Fleets Enema (Adult)) 133 ml UNSCH PRN NM CONSTIPATION; Start 09/25/16 at 16:00 Bisacodyl (Dulcolax Supp) 10 mg DAILY PRN RECTAL CONSTIPATION Last administered on 10/20/16 12:53; Start 09/26/16 at 15:30 Bisacodyl (Dulcolax Supp) 10 mg ONCE ONCE RECTAL Last administered on 16:10; Start 09/26/16 at 15:30; Stop 09/26/16 at 15:31; Status DC Cyclobenzaprine HCl (Flexeril) 5 mg Q8H PO Last administered on 10/13/16 13:37 ; Start 10/13/16 at 12:15; Stop 10/13/16 at 18:27; Status DC Magnesium Hydroxide (Milk Of Magnesia Liq) 30 ml DAILY PRN PO constipation Last administered on 10/20/16 12:54; Start 10/13/16 at 14:30 Acetaminophen/ Hydrocodone Bitart ([place] 5-325 Mg) 1 tab Q6H PRN PO PAIN SCALE 1 TO 10; Start 10/13/16 at 18:30; Stop 10/13/16 at 18:30; Status DC Acetaminophen/ Hydrocodone Bitart ([place] 5-325 Mg) 1 tab Q6H PRN PO PAIN SCALE 1 TO 10 Last administered on 11/02/16 05:51; Start 10/13/16 at 18:45 Cyclobenzaprine HCl (Flexeril) 5 mg HS PRN PO muscle relaxant Last administered on 10/22/16 21:17; Start 10/14/16 at 14:15 Fentanyl Citrate (fentaNYL INJ) 100 mcg STK-MED ONCE .ROUTE ; Start 10/23/16 at 16:51; Stop 10/23/16 at 16:52; Status DC Glycerin (Glycerin Adult Supp) 2 gm ONCE ONCE RECTAL Last administered on 15:29; Start 10/26/16 at 15:00; Stop 10/26/16 at 15:01; Status DC Nitrofurantoin Macrocrystals (Macrobid) 100 mg BIDPC PO Last administered on 09:36; Start 10/26/16 at 15:00; Stop 10/29/16 at 14:59; Status DC Date of Insertion: Oct 12, 2016 A/P Assessment and Plan A/P 60-year-old male with: CVA Paraplegia 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 Recovery is not expected to occur. Medicaid with SSI pending. Recent Fever- now has resolved Constipation Resolved Clogged PEG tube Has occured on 10/14 and 10/23 Follow for recurrence Continue Flushes GI if replacement needed Chronic respiratory failure Related to CVA Continue trach management PRN Levsin pulmonary following. 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 Frequent turns Colostomy declined by family (inability to divert feces in this chronic setting increases risks with ulcer and for recurrence of ulcers) Chronic Arevalo Follow for UTIs Hx of Gastric Ulcer Follow clinically PPI Monitor H/H periodically. FEN: Continue tube feeds. Appreciate dietary recommendations. Continue free water flushes. DVT prophylaxis: SCDs. Discharge Planning dc planning to SNF-no funding- SSI pending. Medardo Au MD Nov 03, 2016 11:59
--- NOTE | 2016-11-03 12:03 | HHI.PR ---
Subjective Remarks opens eyes on o2 , o2 SAT 96 on T PIECE Objective Vital Signs Date Time Temp Pulse Resp B/P Pulse Ox O2 Delivery O2 Flow Rate FiO2 11/03/16 10:53 100 T-piece 28 11/03/16 08:48 97.7 88 18 110/68 98 11/03/16 04:00 97.2 87 22 123/77 98 11/03/16 00:00 97.8 89 22 118/70 98 11/02/16 20:00 97.7 85 22 123/75 100 11/02/16 18:05 97 T-piece 6.00 28 11/02/16 14:15 97.8 81 12 125/78 97 11/02/16 12:05 97.0 74 12 104/74 99 I/O 11/02/16 11/02/16 11/02/16 11/03/16 11/03/16 11/03/16 07:00 15:00 23:00 07:00 15:00 23:00 Intake Total 1866 ml 984 ml 893 ml Output Total 800 ml 825 ml 700 ml 950 ml Balance 1066 ml -825 ml 284 ml -57 ml Tube Feeding 1466 ml 984 ml 493 ml Other 400 ml 400 ml Output Urine Total 800 ml 825 ml 700 ml 950 ml # Bowel Movements 1 1 0 Procedures 01/02/16 PEG placement 01/02/16 tracheostomy 07/22/2016 Wide excision of sacral skin wound, biopsy of the cavity lining and debridement. PEG tube replacement 07/29/16 Objective Remarks GENERAL: SKIN: Warm and dry. HEAD: Atraumatic. Normocephalic. EYES: Pupils equal and round. No scleral icterus. No injection or drainage. ENT: No nasal bleeding or discharge. Mucous membranes pink and moist. NECK: Trachea midline. No JVD. TRACH. [place] CARDIOVASCULAR: Regular rate and rhythm. RESPIRATORY: No accessory muscle use. Clear to auscultation. Breath sounds equal bilaterally. GASTROINTESTINAL: Abdomen soft, non-tender, nondistended. Hepatic and splenic margins not palpable. MUSCULOSKELETAL: Extremities without clubbing, cyanosis, or edema. No obvious deformities. NEUROLOGICAL: Awake and alert. No obvious cranial nerve deficits. Motor grossly within normal limits. Five out of 5 muscle strength in the arms and legs. Normal speech. PSYCHIATRIC: Appropriate mood and affect; insight and judgment normal. Assessment and Plan Assessment and Plan impression respiratory failure CVA S/P TRACHEOSTOMY PLAN O2 NEEDED PULM. TOFLORENCIAT Brandon Taylor MD Nov 03, 2016 12:03
[2016-11-03] MEDS: SENNOSIDES SYRUP 8.8 MG/5 ML CUP PO SCH (15:02)
[2016-11-03] MEDS: PARoxetine HCL SUSP 20 MG/10 ML UDC PEG SCH (18:10)
[2016-11-03] MEDS: ACETAMINOPHEN/HYDROcodone 325 MG/5 MG TAB PO PRN (21:21)
[2016-11-03] MEDS: INSULIN DETEMIR 100 UNITS/ML VIAL SQ SCH (21:23)
[2016-11-04] VITALS (10 sets, daily range): BP systolic 94–137; BP diastolic 61–76; PULSE 72–96; RESP 17–20; TEMP 96.3–98.9; O2SAT 95–99
[2016-11-04] MEDS: FREE WATER TUBE SCH ×6 (03:10→20:00)
[2016-11-04] MEDS: HEPARIN SODIUM - SQ 10,000 UNITS/ML VIAL SQ SCH ×2 (06:03→14:18)
[2016-11-04] MEDS: AMOXICILLIN (TRIHYDRATE) 500 MG CAP PO SCH ×3 (06:03→20:51)
[2016-11-04] MEDS: ACETIC ACID 0.25% SOLN 1000 ML IRR BTL IRRIGATION SCH ×2 (06:03→14:19)
[2016-11-04] MEDS: INSULIN ASPART SUPPLEMENTAL SCALE SQ SCH (06:09)
[2016-11-04] MEDS: DILTIAZEM HCL 30 MG TAB PEG SCH ×4 (08:16→20:50)
[2016-11-04] MEDS: METOPROLOL TARTRATE 50 MG TAB PO SCH ×2 (08:16→20:50)
[2016-11-04] MEDS: POTASSIUM CHLORIDE 25 MEQ EFFERVESCENT TAB TUBE SCH (08:17)
[2016-11-04] MEDS: DOCUSATE SODIUM 100 MG/10 ML UDC PO SCH ×2 (08:17→20:50)
[2016-11-04] MEDS: KETOCONAZOLE 2% CREAM 15 GM TOPICAL SCH ×2 (08:17→21:00)
[2016-11-04] MEDS: LACTULOSE SYRUP 20 GM/30 ML CUP PO SCH (08:17)
[2016-11-04] MEDS: levETIRAcetam 500 MG/5 ML UDC TUBE SCH ×2 (08:17→20:51)
[2016-11-04] MEDS: ASPIRIN 325 MG TAB TUBE SCH (08:17)
[2016-11-04] MEDS: ARTIFICIAL TEARS OPTH SOLN 15 ML BTL EACH EYE SCH ×2 (08:18→21:00)
[2016-11-04] MEDS: SODIUM CHLORIDE 0.65% NASAL SPRAY 45 ML BTL NASAL SCH ×2 (08:18→21:00)
[2016-11-04] MEDS: NYSTATIN 100,000 U/GM PWD 15 GM BTL TOPICAL SCH (08:19)
[2016-11-04] MEDS: BACITRACIN TOP OINT 15 GM TUBE TOP SCH (08:19)
[2016-11-04] MEDS: PANTOPRAZOLE SODIUM 40 MG VIAL IV PUSH SCH ×2 (10:28→22:15)
--- NOTE | 2016-11-04 12:08 | HHI.PR ---
Subjective Remarks in no distress. no change. Objective Vitals Vital Signs Date Time Temp Pulse Resp B/P Pulse Ox O2 Delivery O2 Flow Rate FiO2 11/04/16 08:00 98.0 87 17 137/72 95 11/04/16 04:00 96.3 86 20 120/69 98 11/04/16 03:14 96 11/04/16 00:00 98.1 82 20 109/65 97 11/03/16 20:00 98.0 91 20 109/74 98 11/03/16 19:00 T-Piece 6.00 28 11/03/16 16:26 95.5 86 18 160/95 98 11/03/16 13:39 92 11/03/16 12:44 98.2 85 18 108/71 99 I/O 11/03/16 11/03/16 11/03/16 11/04/16 11/04/16 11/04/16 07:00 15:00 23:00 07:00 15:00 23:00 Intake Total 893 ml 1833 ml 893 ml Output Total 950 ml 750 ml 800 ml 150 ml Balance -57 ml -750 ml 1033 ml 743 ml Tube Feeding 493 ml 1833 ml 493 ml Other 400 ml 400 ml Output Urine Total 950 ml 750 ml 800 ml 150 ml # Bowel Movements 0 1 0 0 Imaging Last Impressions Tube Change 10/23/16 0000 Signed Impressions: Service Date/Time: Sunday, October 23, 2016 16:34 - CONCLUSION: Uncomplicated gastrojejunostomy tube exchange as above. Existing tube was patent with some luminal narrowing. The balloon port was damaged and leaking, however. Bobby Gray MD Chest X-Ray 10/18/16 0000 Signed Impressions: Service Date/Time: Tuesday, October 18, 2016 19:17 - CONCLUSION: 1. Minimal right perihilar streakiness consistent with probable atelectasis. 2. Elevation of the right hemidiaphragm. 3. Tracheostomy tube in good position above the geno. Eduardo Valenzuela MD Abdomen X-Ray 08/31/16 0000 Signed Impressions: Service Date/Time: Wednesday, August 31, 2016 16:36 - CONCLUSION: 1. No acute findings. Mild constipation. Durga Dotson MD Abdomen/Pelvis CT 04/12/16 0000 Signed Impressions: Service Date/Time: Tuesday, April 12, 2016 20:52 - CONCLUSION: 1. 6.4 cm necrotic mass or abscess in the soft tissues posteriorly just below the sacrum associated with some bony destructive change of the lower most sacrum and coccyx with inflammatory changes extending into the ischiorectal fossa and into the presacral retroperitoneum predominantly on the left side. There is associated fairly marked mural thickening of the anal verge and rectum. 2. There is gastrostomy and Arevalo catheter present. Stable abdominal aortic aneurysm. Durga Dotson MD Head Magnetic Resonance Angiography 03/05/16 0000 Signed Impressions: Service Date/Time: Saturday, March 05, 2016 09:26 - CONCLUSION: Persistent high-grade subtotal occlusive stenotic lesions in the distal right vertebral artery and proximal basilar artery with significant improvement in flow and recanalization following initial presentation of thrombosis. Stable interstitial circulation without significant stenosis. 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 There is decreasing restricted diffusion and increasing loss of volume characteristic of a subacute to chronic infarct. No evidence of acute infarct, acute hemorrhage mass or edema. Ernesto Kulkarni MD Head CT 01/16/16 0000 Signed Impressions: Service Date/Time: Saturday, January 16, 2016 10:51 - CONCLUSION: No extensive low density in the brainstem colin more prominent in the right the left extending into the right middle cerebellar peduncle consistent with brainstem infarct nonhemorrhagic acute Wellington West MD Neck Magnetic Resonance Angiography 12/22/15 1445 Signed Impressions: Service Date/Time: Tuesday, December 22, 2015 09:22 - CONCLUSION: Variant origin of the left vertebral artery from the aortic arch. No evidence of carotid stenosis. Glen Zamora MD Head/Brain Mag Res Venography 12/22/15 0000 Signed Impressions: Service Date/Time: Tuesday, December 22, 2015 09:22 - CONCLUSION: Normal MRV. Jonel Jones Jr., MD Objective Remarks GENERAL: on Trach- in no apparent distress. CARDIOVASCULAR: Regular rate and regular rhythm without murmurs, gallops, or rubs. RESPIRATORY: Clear to auscultation. Breath sounds equal bilaterally. No wheezes , rales, or rhonchi. GASTROINTESTINAL: Abdomen soft, non-tender,distended. hypoactive bowel sounds-PEG in place MUSCULOSKELETAL: Extremities without clubbing, cyanosis, or edema. NEURO: awake Procedures 01/02/16 PEG placement 01/02/16 tracheostomy 07/22/2016 Wide excision of sacral skin wound, biopsy of the cavity lining and debridement. PEG tube replacement 07/29/16 VAC changes- M-W-F 4/5- GJ tube replacement Medications and IVs Current Medications IV Flush (NS Flush) 2 ml UNSCH PRN IVF FLUSH AFTER USING IV ACCESS Last administered on 09/28/16t 21:18; Start 12/21/15 at 06:00 Ondansetron HCl (Zofran Inj) 4 mg STK-MED ONCE .ROUTE ; Start 12/21/15 at 06:22; Stop 12/21/15 at 06:23; Status DC Ondansetron HCl (Zofran Inj) 4 mg ONCE ONCE IV PUSH Last administered on at 06:43; Start 12/21/15 at 06:30; Stop 12/21/15 at 06:31; Status DC Diltiazem HCl 20 mg 20 mg ONCE ONCE IV Last administered on 12/21/15at 06:42; Start 12/21/15 at 06:30; Stop 12/21/15 at 06:31; Status DC Diltiazem HCl/ Sodium Chloride (Cardizem Inj/NS Inj) 125 ml @ 0 mls/hr TITRATE IV Last administered on 12/21/15at 06:47; Start 12/21/15 at 06:30; Stop 12/21/15 at 13:00; Status DC Acetaminophen (Tylenol) 650 mg ONCE ONCE PO ; Start 12/21/15 at 06:45; Stop 12/20 at 06:46; Status DC Lorazepam (Ativan Inj) 1 mg ONCE ONCE IV PUSH Last administered on 12/21/15at 07 :22; Start 12/21/15 at 07:15; Stop 12/21/15 at 07:16; Status DC Etomidate (Amidate Inj) 40 mg STK-MED ONCE .ROUTE Last administered on at 08:17; Start 12/21/15 at 07:37; Stop 12/21/15 at 07:38; Status DC Succinylcholine Chloride 200 mg 200 mg STK-MED ONCE .ROUTE Last administered on 12/21/15at 08:18; Start 12/21/15 at 07:37; Stop 12/21/15 at 07:38; Status DC Propofol (Diprivan 1000 Mg/100ml Inj) 100 ml @ As Directed STK-MED ONCE .ROUTE Last administered on 12/21/15at 08:19; Start 12/21/15 at 07:46; Stop 12/21/15 at 07:47; Status DC Propofol (Diprivan 1000 Mg/100ml Inj) search Sets for Drip. NOW PRN IV SEDATION Last administered on 12/22/15at 06:25; Start 12/21/15 at 08:30; Stop 12/28 at 15:43; Status DC Gadodiamide (Omniscan Pf Inj) 18 ml STK-MED ONCE IV Last administered on at 10:11; Start 12/21/15 at 10:11; Stop 12/21/15 at 10:12; Status DC Pantoprazole Sodium (Protonix Inj) 40 mg DAILY IV Last administered on at 07:39; Start 12/21/15 at 13:00; Stop 01/03/16 at 10:10; Status DC Albuterol/ Ipratropium (Duoneb Neb) 1 ampule Q6HR NEB INH Last administered on 12/25/15at 07:51; Start 12/21/15 at 13:00; Stop 12/25/15 at 13:00; Status DC Miscellaneous Information 1 [id number] Last administered on 12/21/15at 13:00; Start 12/21/15 at 13:00; Stop 01/12/16 at 11:47; Status DC Chlorhexidine Gluconate (Chlorhexidine 2% Cloth) 3 pack Taper DAILY@04 TOP Last administered on 01/11/16at 04:10; Start 12/22/15 at 04:00; Stop 01/12/16 at 11:47; Status DC Chlorhexidine Gluconate 3 pack 3 pack UNSCH PRN TOP HYGIENIC CARE; Start at 13:00; Stop 01/12/16 at 11:47; Status DC Sodium Chloride (NS 1000 ml Inj) 1,000 ml @ 75 mls/hr [id number] IV Last administered on 12/22/15at 17:00; Start 12/21/15 at 13:00; Stop 12/22/15 at 19:01; Status DC Dextrose (D50w (Vial) Inj) 25 ml UNSCH PRN IV PUSH HYPOGLYCEMIA-SEE COMMENTS; Start 12/21/15 at 13:00; Stop 04/19/16 at 17:19; Status DC Glucagon (Glucagon Inj) 1 mg UNSCH PRN OTHER HYPOGLYCEMIA-SEE COMMENTS; Start 12/21/15 at 13:00; Stop 04/19/16 at 17:19; Status DC Insulin Human Regular (NovoLIN R SUPPLEMENTAL SCALE) 1 Q6H SQ Last administered on 01/04/16at 06:31; Start 12/21/15 at 13:00; Stop 01/04/16 at 10:05 ; Status DC Levetriacetam (Keppra) 500 mg Q12HR PO Last administered on 12/27/15at 09:00; Start 12/21/15 at 13:45; Stop 12/27/15 at 09:44; Status DC Heparin Sodium (Porcine) (Heparin Inj) 5,000 units BID SQ Last administered on 12/22/15at 20:52; Start 12/21/15 at 21:00; Stop 12/23/15 at 08:32; Status DC Warfarin Sodium (Coumadin) 7.5 mg ONCE ONCE PO Last administered on 12/21/15at 21:43; Start 12/21/15 at 21:00; Stop 12/21/15 at 21:01; Status DC Warfarin Sodium (Coumadin) 5 mg DAILY@16 PO Last administered on 12/23/15at 16:00 ; Start 12/22/15 at 16:00; Stop 12/26/15 at 09:29; Status DC Patient Medication Teaching (Coumadin Booklet) 1 ONCE ONCE XX Last administered on 12/21/15at 20:15; Start 12/21/15 at 20:15; Stop 12/21/15 at 20:16; Status DC Chlorhexidine Gluconate (Peridex 0.12% Liq) 15 ml BID@08,20 MT Last administered on 01/12/16at 08:00; Start 12/22/15 at 20:00; Stop 01/12/16 at 11:47 ; Status DC Gadodiamide 20 ml 20 ml STK-MED ONCE IV Last administered on 12/22/15at 09:55; Start 12/22/15 at 09:55; Stop 12/22/15 at 09:56; Status DC Pharmacy Profile Note ml @ 0 mls/hr UNSCH OTHER ; Start 12/22/15 at 11:00; Stop 12/22/15 at 19:43; Status DC Sodium Chloride 1,000 ml @ 50 mls/hr Q20H IV Last administered on 12/24/15at 20: 02; Start 12/22/15 at 18:44; Stop 12/25/15 at 11:52; Status DC Pharmacy Profile Note (Coumadin Consult Pharmacy) 0 ml @ 0 mls/hr UNSCH OTHER ; Start 12/22/15 at 19:45; Stop 01/04/16 at 12:25; Status DC Acetaminophen 650 mg 650 mg Q6H PRN PO TEMP > 100 Last administered on at 13:24; Start 12/23/15 at 02:45; Stop 12/30/15 at 15:04; Status DC Potassium Chloride 100 ml @ 50 mls/hr Q2H PRN IV For Potassium 2.8 - 3.2 mEq/L ; Start 12/23/15 at 08:30; Stop 01/09/16 at 11:14; Status DC Potassium Chloride (KCl 20 Meq Premix Inj) 100 ml @ 50 mls/hr Q2H PRN IV For Potassium 2.8 - 3.2 mEq/L; Start 12/23/15 at 08:30; Stop 01/09/16 at 11:14; Status DC Potassium Chloride 40 meq 40 meq UNSCH PRN PO/TUBE For Potassium 3.3 - 3.5 mEq/ L; Start 12/23/15 at 08:30; Stop 01/09/16 at 11:14; Status DC Potassium Chloride 100 ml @ 25 mls/hr UNSCH PRN IV For Potassium 3.3 - 3.5 mEq /L; Start 12/23/15 at 08:30; Stop 01/09/16 at 11:14; Status DC Potassium Chloride 100 ml @ 50 mls/hr Q2H PRN IV For Potassium 3.3 - 3.5 mEq/L ; Start 12/23/15 at 08:30; Stop 01/09/16 at 11:14; Status DC Magnesium Sulfate/ Sodium Chloride (Magnesium Sulfate Inj/NS Inj) 100 ml @ 50 mls/hr UNSCH PRN IV For Magnesium 0.9 - 1.1 mg/dL; Start 12/23/15 at 08:30; Stop 01/09/16 at 11:14; Status DC Magnesium Oxide 800 mg 800 mg UNSCH PRN PO For Magnesium 1.2 - 1.6 mg/dL; Start 12/23/15 at 08:30; Stop 01/09/16 at 11:14; Status DC Magnesium Sulfate/ Sodium Chloride (Magnesium Sulfate Inj/NS Inj) 100 ml @ 50 mls/hr UNSCH PRN IV For Magnesium 1.2 - 1.6 mg/dL; Start 12/23/15 at 08:30; Stop 01/09/16 at 11:14; Status DC Potassium Phosphate 2000 mg 2,000 mg Q4H PRN PO For Phosphorus < 2.5 mg/dL; Start 12/23/15 at 08:30; Stop 01/09/16 at 11:14; Status DC Sodium Phosphate/ Sodium Chloride (Sodium Phosphate Inj/NS 250 ml Inj) 250 ml @ 42 mls/hr UNSCH PRN IV For Phosphorus < 2.5 mg/dL; Start 12/23/15 at 08:30; Stop 01/09/16 at 11:14; Status DC Potassium Chloride (KCl 40 Meq/30 ml Liq) 40 meq UNSCH PRN PO/TUBE SEE LABEL COMMENTS; Start 12/23/15 at 08:30; Stop 01/09/16 at 11:14; Status DC Potassium Phosphate 2000 mg 2,000 mg UNSCH PRN PO/TUBE SEE LABEL COMMENTS; Start 12/23/15 at 08:30; Stop 01/09/16 at 11:14; Status DC Potassium Phosphate 30 mmol/ Sodium Chloride 260 ml @ 42 mls/hr UNSCH PRN IV SEE LABEL COMMENTS; Start 12/23/15 at 08:30; Stop 01/09/16 at 11:14; Status DC Sodium Chloride 1,000 ml @ 75 mls/hr [id number] IV ; Start 12/23/15 at 08:30; Stop 12/23/15 at 08:30; Status DC Piperacillin Sod/ Tazobactam Sod 50 ml @ 100 mls/hr Q6H IV Last administered on 12/30/15at 10:02; Start 12/23/15 at 10:00; Stop 12/30/15 at 14:50; Status DC Vancomycin HCl/ Sodium Chloride (Vancomycin Inj/ NS 250 ml Inj) 250 ml @ 250 mls/hr Q12H IV Last administered on 12/29/15at 09:01; Start 12/24/15 at 08:45; Stop 12/29/15 at 15:33; Status DC Warfarin Sodium (Coumadin) 4 mg DAILY@16 PO Last administered on 12/28/15at 16:00 ; Start 12/26/15 at 16:00; Stop 01/04/16 at 12:25; Status DC Levetriacetam (Keppra Liq) 500 mg Q12HR TUBE Last administered on 11/04/16t 08 :17; Start 12/27/15 at 21:00 Docusate Sodium (Colace Liq) 100 mg Q12HR TUBE Last administered on 01/15/16at 09:01; Start 12/27/15 at 21:00; Stop 04/16/16 at 08:50; Status DC Sennosides (Senna Liq) 8.8 mg DAILY TUBE Last administered on 01/15/16at 09:01 ; Start 12/27/15 at 17:00; Stop 01/15/16 at 20:37; Status DC Bisacodyl (Dulcolax Supp) 10 mg ONCE ONCE RECTAL ; Start 12/27/15 at 16:15; Stop 12/27/15 at 16:15; Status DC Albuterol/ Ipratropium (Duoneb Neb) 1 ampule Q4HR NEB PRN NEB RESPIRATORY DISTRESS Last administered on 12/29/15at 12:17; Start 12/27/15 at 22:00; Stop at 08:16; Status DC Bisacodyl (Dulcolax Supp) 10 mg ONCE ONCE RECTAL ; Start 12/28/15 at 12:00; Stop 12/28/15 at 12:01; Status DC Sodium Chloride (Sodium Chloride) 1 gm BID TUBE Last administered on 12/29/15at 09:02; Start 12/28/15 at 21:00; Stop 12/29/15 at 15:43; Status DC Lactulose (Lactulose Liq) 30 ml DAILY TUBE Last administered on 12/29/15at 09:02 ; Start 12/28/15 at 20:30; Stop 12/29/15 at 15:43; Status DC Levofloxacin (Levaquin) 750 mg DAILY@16 TUBE ; Start 12/29/15 at 16:00; Stop 05/05 at 16:00; Status DC Sodium Chloride (Sodium Chloride) 1 gm DAILY TUBE Last administered on at 07:29; Start 12/30/15 at 09:00; Stop 12/31/15 at 14:08; Status DC Water 200 ml 200 ml Q6HR G-TUBE Last administered on 12/31/15at 04:19; Start 06/05 at 14:45; Stop 12/31/15 at 07:31; Status DC Ceftriaxone Sodium/Sodium Chloride (Rocephin Inj/NS Inj) 100 ml @ 200 mls/hr Q12H IV Last administered on 01/03/16at 02:47; Start 12/30/15 at 15:00; Stop at 10:09; Status DC Acetaminophen (Tylenol 650 Mg/ 20 ml Liq) 650 mg Q6H PRN TUBE TEMP >100.4 Last administered on 10/25/16t 15:13; Start 12/30/15 at 15:15 Lactobacillus Acidophilus (Lactinex Pkt) 1 gm BID TUBE Last administered on at 09:00; Start 12/30/15 at 21:00; Stop 02/10/16 at 14:30; Status DC Enoxaparin Sodium (Lovenox Inj) 90 mg Q12H SQ Last administered on 01/01/16at 21 :57; Start 12/31/15 at 08:00; Stop 01/03/16 at 10:33; Status DC Water (Free Water) 100 ml Q12H G-TUBE ; Start 12/31/15 at 18:00; Stop 12/31/15 at 18:00; Status DC Acetaminophen/ Hydrocodone Bitart ([place] 5-325 Mg) 1 tab Q6H PRN PO PAIN Last administered on 05/26/16at 20:46; Start 12/31/15 at 15:00; Stop 06/02/16 at 21: 44; Status DC Fentanyl Citrate (Sublimaze Inj) 25 mcg Q1H PRN IV PUSH BREAKTHROUGH PAIN; Start 12/31/15 at 15:00; Stop 03/06/16 at 10:03; Status DC Water (Free Water) 200 ml Q8H G-TUBE Last administered on 01/01/16at 17:55; Start 12/31/15 at 18:00; Stop 01/02/16 at 09:56; Status DC Sodium Chloride (Sodium Chloride) 1 gm BID TUBE Last administered on 01/03/16at 07:39; Start 12/31/15 at 21:00; Stop 01/03/16 at 09:08; Status DC Miscellaneous Information Hold Anticoagulation after midni... ONCE ONCE OTHER ; Start 01/01/16 at 10:15; Stop 01/01/16 at 10:29; Status DC Sodium Chloride (NS 1000 ml Inj) 1,000 ml @ 50 mls/hr Q20H IV Last administered on 01/02/16at 12:26; Start 01/01/16 at 18:00; Stop 01/03/16 at 10:07 ; Status DC Midazolam HCl (Versed Inj) 5 mg STK-MED ONCE .ROUTE ; Start 01/02/16 at 12:47; Stop 01/02/16 at 12:48; Status DC Vecuronium [place] (Norcuron 10 Mg Inj) 10 mg STK-MED ONCE .ROUTE ; Start at 12:47; Stop 01/02/16 at 12:48; Status DC Fentanyl Citrate (Sublimaze Inj) 250 mcg ONCE ONCE IV PUSH Last administered on 01/02/16at 15:00; Start 01/02/16 at 15:00; Stop 01/02/16 at 15:01; Status DC Midazolam HCl (Versed Inj) 10 mg ONCE ONCE IV PUSH Last administered on at 15:00; Start 01/02/16 at 15:00; Stop 01/02/16 at 15:01; Status DC Rocuronium [place] (Zemuron Inj) 100 mg BOLUS ONCE IV Last administered on at 15:00; Start 01/02/16 at 15:00; Stop 01/02/16 at 15:01; Status DC Ketamine HCl (Ketalar Inj) 500 mg STK-MED ONCE .ROUTE ; Start 01/02/16 at 14:30 ; Stop 01/02/16 at 14:31; Status DC Propofol 230 mg 230 mg STK-MED ONCE IV ; Start 01/02/16 at 16:51; Stop 01/02/16 at 16:52; Status DC Sodium Chloride (NS 1000 ml Inj) 1,000 ml @ 0 mls/hr Q0M IV ; Start 01/03/16 at 10:15; Stop 01/17/16 at 17:30; Status DC Ranitidine HCl (Zantac Liq) 150 mg Q12HR PO Last administered on 01/17/16at 07: 39; Start 01/04/16 at 09:00; Stop 01/17/16 at 15:23; Status DC Enoxaparin Sodium 90 mg 90 mg Q12HR SQ Last administered on 01/11/16at 10:01; Start 01/04/16 at 09:00; Stop 01/11/16 at 12:35; Status DC Sodium Chloride (NS 500 ml Inj) 500 ml @ 0 mls/hr BOLUS ONCE IV Last administered on 01/03/16at 22:57; Start 01/03/16 at 23:00; Stop 01/03/16 at 23:01 ; Status DC Insulin Aspart (NovoLOG SUPPLEMENTAL SCALE) 1 Q6HR SQ Last administered on at 12:00; Start 01/04/16 at 12:00; Stop 03/24/16 at 13:58; Status DC Potassium Chloride (KCl 40 Meq/30 ml Liq) 40 meq Q4H NG Last administered on at 16:21; Start 01/04/16 at 13:00; Stop 01/04/16 at 17:01; Status DC Warfarin Sodium 5 mg 5 mg DAILY@1600 PO Last administered on 01/09/16at 17:21; Start 01/04/16 at 16:00; Stop 01/10/16 at 10:06; Status DC Pharmacy Profile Note (Coumadin Consult Pharmacy) 0 ml @ 0 mls/hr UNSCH XX ; Start 01/04/16 at 12:30; Stop 04/20/16 at 12:04; Status DC Insulin Detemir (Levemir Inj) 10 units Q12HR SQ Last administered on 01/05/16at 08:00; Start 01/04/16 at 21:00; Stop 01/05/16 at 08:42; Status DC Insulin Detemir (Levemir Inj) 5 units NOW ONCE SQ Last administered on at 13:28; Start 01/04/16 at 12:45; Stop 01/04/16 at 12:46; Status DC Albuterol/ Ipratropium (Duoneb Neb) 1 ampule Q4HR NEB PRN NEB dyspnea Last administered on 04/19/16at 02:24; Start 01/07/16 at 08:15; Stop 04/25/16 at 18:54 ; Status DC Warfarin Sodium (Coumadin) 7.5 mg ONCE ONCE PO Last administered on 01/07/16at 16:40; Start 01/07/16 at 16:00; Stop 01/07/16 at 16:01; Status DC Nystatin (Mycostatin Powder) 1 applic Q12HR TOPICAL Last administered on t 08:19; Start 01/08/16 at 21:00 Ipratropium [place] (Atrovent Neb) 0.5 mg TID NEB NEB Last administered on 02/20at 13:17; Start 01/08/16 at 20:00; Stop 02/21/16 at 17:52; Status DC Warfarin Sodium (Coumadin) 5 mg DAILY@1600 PO Last administered on 01/11/16at 14 :26; Start 01/11/16 at 16:00; Stop 01/12/16 at 09:45; Status DC Warfarin Sodium (Coumadin) 6 mg ONCE PO Last administered on 01/10/16at 17:10; Start 01/10/16 at 16:00; Stop 01/10/16 at 21:00; Status DC Metoprolol Tartrate (Lopressor) 50 mg Q12HR GT Last administered on 01/11/16at 10:02; Start 01/10/16 at 11:00; Stop 01/11/16 at 12:30; Status DC Metoprolol Tartrate (Lopressor) 50 mg TID GT Last administered on 01/14/16at 08: 24; Start 01/11/16 at 13:00; Stop 01/14/16 at 08:28; Status DC Insulin Detemir (Levemir Inj) 10 units HS SQ Last administered on 01/11/16at 22: 23; Start 01/11/16 at 21:00; Stop 01/12/16 at 11:47; Status DC Warfarin Sodium (Coumadin) 4 mg DAILY@16 PO ; Start 01/12/16 at 16:00; Stop at 16:00; Status DC Insulin Detemir (Levemir Inj) 20 units HS SQ Last administered on 01/13/16at 20: 26; Start 01/12/16 at 21:00; Stop 01/14/16 at 08:28; Status DC Warfarin Sodium (Coumadin) 2 mg DAILY@16 PO Last administered on 01/13/16at 17: 05; Start 01/12/16 at 16:00; Stop 01/14/16 at 11:23; Status DC Insulin Detemir (Levemir Inj) 22 units HS SQ Last administered on 01/14/16at 21: 37; Start 01/14/16 at 21:00; Stop 01/15/16 at 10:06; Status DC Metoprolol Tartrate (Lopressor) 75 mg TID GT Last administered on 03/10/16at 17: 43; Start 01/14/16 at 09:00; Stop 03/10/16 at 21:13; Status DC Miscellaneous (Pill Splitter) 1 ea UNSCH PRN OTHER SEE LABEL COMMENTS; Start at 08:30 Warfarin Sodium (Coumadin) 4 mg DAILY@1600 PO Last administered on 01/21/16at 16: 51; Start 01/14/16 at 16:00; Stop 01/23/16 at 09:29; Status DC Patient Medication Teaching (Coumadin Booklet) 1 ONCE ONCE XX ; Start 01/14/16 at 16:00; Stop 01/14/16 at 16:01; Status DC Insulin Detemir (Levemir Inj) 24 units HS SQ Last administered on 03/04/16at 21: 09; Start 01/15/16 at 21:00; Stop 03/05/16 at 11:17; Status DC Citalopram Hydrobromide (CeleXA) 20 mg DAILY PEG Last administered on at 08:01; Start 01/16/16 at 09:00; Stop 01/16/16 at 09:41; Status DC Sennosides (Senna Liq) 8.8 mg BID TUBE Last administered on 02/20/16at 08:32; Start 01/15/16 at 21:00; Stop 02/20/16 at 16:13; Status DC Gadodiamide 18 ml 18 ml STK-MED ONCE IV ; Start 01/16/16 at 20:40; Stop at 20:41; Status DC Sodium Chloride (NS 1000 ml Inj) 1,000 ml @ 125 mls/hr Q8H IV Last administered on 01/17/16at 15:11; Start 01/17/16 at 15:00; Stop 01/17/16 at 17:31 ; Status DC Ranitidine HCl 150 mg 150 mg Q24H PO Last administered on 07/28/16t 08:54; Start 01/18/16 at 09:00; Stop 07/30/16 at 10:05; Status DC Sodium Chloride 1,000 ml @ 75 mls/hr [id number] IV Last administered on at 05:22; Start 01/17/16 at 18:00; Stop 01/18/16 at 09:28; Status DC Sodium Chloride/ Sterile Water (Sodium Chloride 23.4% Inj/Sterile Water For Inj ) 1,009.625 ml @ 60 mls/hr [id number] IV Last administered on 01/21/16at 22:46; Start 01/18/16 at 11:00; Stop 01/22/16 at 10:09; Status DC Potassium Chloride (KCl) 40 meq ONCE ONCE PO ; Start 01/18/16 at 09:30; Stop at 09:31; Status DC Potassium Chloride (KCl 40 Meq/30 ml Liq) 40 meq ONCE ONCE TUBE Last administered on 01/18/16at 11:08; Start 01/18/16 at 11:00; Stop 01/18/16 at 11:01 ; Status DC Water (Free Water) 300 ml Q4HR TUBE Last administered on 01/19/16at 08:00; Start 01/18/16 at 12:00; Stop 01/19/16 at 10:43; Status DC Water (Free Water) 400 ml Q4HR TUBE Last administered on 04/16/16at 04:00; Start 01/19/16 at 12:00; Stop 04/16/16 at 09:09; Status DC Potassium Chloride (KCl 40 Meq/30 ml Liq) 40 meq ONCE ONCE NG Last administered on 01/19/16at 11:41; Start 01/19/16 at 11:00; Stop 01/19/16 at 11:01; Status DC Potassium Chloride 60 meq 60 meq ONCE ONCE PO/TUBE Last administered on 13:30; Start 01/21/16 at 11:15; Stop 01/21/16 at 11:27; Status DC Sodium Chloride (1/2 NS 1000 ml Inj) 1,000 ml @ 30 mls/hr Q24H IV Last administered on 02/06/16at 11:26; Start 01/22/16 at 11:00; Stop 02/07/16 at 14:49 ; Status DC Warfarin Sodium (Coumadin) 3 mg DAILY@16 PO Last administered on 01/23/16 17:19 ; Start 01/23/16 at 16:00; Stop 01/24/16 at 14:05; Status DC Warfarin Sodium (Coumadin) 3 mg DAILY@16 PO Last administered on 01/25/16at 15:59 ; Start 01/25/16 at 16:00; Stop 01/26/16 at 15:04; Status DC Warfarin Sodium (Coumadin) 4 mg ONCE@1600 ONCE PO Last administered on at 16:55; Start 01/24/16 at 16:00; Stop 01/24/16 at 16:01; Status DC Warfarin Sodium (Coumadin) 3 mg DAILY@16 PO ; Start 01/27/16 at 16:00; Stop at 16:00; Status DC Warfarin Sodium (Coumadin) 4 mg ONCE@1600 ONCE PO Last administered on at 16:52; Start 01/26/16 at 16:00; Stop 01/26/16 at 16:01; Status DC Potassium Chloride (KCl 40 Meq/30 ml Liq) 80 meq ONCE ONCE PO Last administered on 01/27/16at 07:45; Start 01/27/16 at 07:45; Stop 01/27/16 at 08:10; Status DC Warfarin Sodium (Coumadin) 4 mg DAILY@16 PO Last administered on 02/02/16at 17: 22; Start 01/27/16 at 16:00; Stop 02/03/16 at 11:37; Status DC Acetic Acid (Acetic Acid 0.25% Irr Btl) 10 ml Q8HR IRRIGATION Last administered on 7/18/16at 06:00; Start 01/28/16 at 22:00; Stop 02/05/16 at 15:51 ; Status DC Warfarin Sodium 3 mg 3 mg DAILY@1600 PO Last administered on 02/11/16at 17:34; Start 02/03/16 at 16:00; Stop 02/12/16 at 12:45; Status DC Ceftriaxone Sodium/Sodium Chloride (Rocephin Inj/NS Inj) 100 ml @ 200 mls/hr Q24H IV Last administered on 02/10/16at 05:23; Start 02/05/16 at 06:30; Stop at 14:32; Status DC Acetic Acid (Acetic Acid 0.25% Irr Btl) 10 ml Q8HR IRRIGATION ; Start 02/05/16 at 16:00; Status Cancel Acetic Acid (Acetic Acid 0.25% Irr Btl) 10 ml Q8HR IRRIGATION Last administered on 11/04/16t 06:03; Start 02/05/16 at 16:00 Lactobacillus Acidophilus (Lactinex) 1 tab Q12HR PO Last administered on at 08:25; Start 02/10/16 at 21:00; Stop 02/12/16 at 16:05; Status DC Warfarin Sodium (Coumadin) 4 mg DAILY@1600 PO Last administered on 02/14/16at 15 :56; Start 02/12/16 at 16:00; Stop 02/15/16 at 10:17; Status DC Paroxetine HCl (Paxil Liq) 20 mg DAILY PEG Last administered on 02/25/16at 07:33 ; Start 02/16/16 at 09:00; Stop 02/25/16 at 10:36; Status DC Warfarin Sodium (Coumadin) 3 mg DAILY@1600 PO Last administered on 02/19/16at 16: 42; Start 02/15/16 at 16:00; Stop 02/20/16 at 08:50; Status DC Warfarin Sodium (Coumadin) 4 mg DAILY@16 PO Last administered on 02/21/16at 15:54 ; Start 02/20/16 at 16:00; Stop 02/22/16 at 08:46; Status DC Sennosides (Senna Liq) 8.8 mg DAILY TUBE Last administered on 05/26/16at 08:14 ; Start 02/21/16 at 09:00; Stop 05/27/16 at 11:51; Status DC Albuterol Sulfate (Albuterol Neb) 2.5 mg QID NEB INH Last administered on at 19:51; Start 02/21/16 at 20:00; Stop 02/25/16 at 20:00; Status DC Acetylcysteine (Mucomyst 10% Neb) 1 ml QID NEB NEB Last administered on at 16:32; Start 02/21/16 at 20:00; Stop 02/23/16 at 16:01; Status DC Warfarin Sodium (Coumadin) 3 mg DAILY@16 PO Last administered on 02/22/16at 15:59 ; Start 02/22/16 at 16:00; Stop 02/23/16 at 08:56; Status DC Warfarin Sodium (Coumadin) 3 mg DAILY@16 PO Last administered on 02/28/16at 16: 17; Start 02/24/16 at 16:00; Stop 02/29/16 at 10:04; Status DC Warfarin Sodium (Coumadin) 2 mg ONCE PO Last administered on 02/23/16at 16:22; Start 02/23/16 at 16:00; Stop 02/23/16 at 21:00; Status DC Paroxetine HCl (Paxil Liq) 20 mg DAILY@1900 PEG Last administered on 03/08/16at 18:11; Start 02/26/16 at 19:00; Stop 03/09/16 at 11:31; Status DC Warfarin Sodium (Coumadin) 3 mg DAILY@16 PO Last administered on 03/06/16at 16: 22; Start 03/01/16 at 16:00; Stop 03/09/16 at 10:30; Status DC Warfarin Sodium (Coumadin) 1 mg ONCE PO Last administered on 02/29/16at 17:28; Start 02/29/16 at 16:00; Stop 02/29/16 at 21:00; Status DC Insulin Detemir (Levemir Inj) 27 units HS SQ Last administered on 03/05/16at 20: 25; Start 03/05/16 at 21:00; Stop 03/06/16 at 10:03; Status DC Patient Medication Teaching (Coumadin Booklet) 1 ONCE ONCE XX Last administered on 03/05/16at 16:00; Start 03/05/16 at 16:00; Stop 03/05/16 at 16:01 ; Status DC Insulin Detemir (Levemir Inj) 30 units HS SQ Last administered on 03/21/16at 22: 32; Start 03/06/16 at 21:00; Stop 03/22/16 at 14:48; Status DC Trimethoprim/ Sulfamethoxazole (Bactrim 800-160 Mg/20 ml Liq) 20 ml Q12HR PO Last administered on 03/14/16at 08:01; Start 03/07/16 at 11:15; Stop 03/14/16 at 11:14; Status DC Lorazepam (Ativan Inj) 0.5 mg Q4H PRN IV PUSH seizures or agitation; Start at 23:00 Metronidazole (Flagyl) 500 mg Q8H PO Last administered on 03/14/16at 15:51; Start 03/08/16 at 17:00; Stop 03/14/16 at 23:00; Status DC Warfarin Sodium (Coumadin) 2 mg DAILY@16 PO Last administered on 03/09/16at 17: 20; Start 03/09/16 at 16:00; Stop 03/10/16 at 10:33; Status DC Paroxetine HCl (Paxil) 20 mg DAILY@1900 PEG Last administered on 03/11/16at 17: 55; Start 03/09/16 at 19:00; Stop 03/12/16 at 08:31; Status DC Warfarin Sodium 3 mg 3 mg DAILY@16 PO Last administered on 04/12/16at 15:28; Start 03/10/16 at 16:00; Stop 04/12/16 at 16:39; Status DC Pharmacy Profile Note 0 ml @ 0 mls/hr UNSCH OTHER ; Start 03/10/16 at 14:15; Stop 03/18/16 at 11:33; Status DC Vancomycin HCl/ Sodium Chloride (Vancomycin Inj/ NS 500 ml Inj) 530 ml @ 265 mls/hr Q12H IV Last administered on 03/17/16at 16:26; Start 03/10/16 at 16:00; Stop 03/17/16 at 23:00; Status DC Miscellaneous Information SPECIFIC LAB TO BE ... ONCE ONCE XX Last administered on 03/12/16at 04:45; Start 03/12/16 at 03:45; Stop 03/12/16 at 03:46 ; Status DC Metoprolol Tartrate (Lopressor) 75 mg Q8HR PO Last administered on 04/02/16at 13 :13; Start 03/10/16 at 22:00; Stop 04/02/16 at 17:31; Status DC Paroxetine HCl (Paxil Liq) 20 mg DAILY@1900 PEG Last administered on 11/03/16 18:10; Start 03/12/16 at 19:00 Warfarin Sodium (Coumadin) 1 mg ONCE PO Last administered on 03/21/16at 16:24; Start 03/21/16 at 16:00; Stop 03/21/16 at 21:00; Status DC Warfarin Sodium (Coumadin) 1 mg ONCE PO Last administered on 03/22/16at 17:46; Start 03/22/16 at 16:00; Stop 03/22/16 at 21:00; Status DC Insulin Detemir (Levemir Inj) 32 units HS SQ Last administered on 03/22/16at 20: 18; Start 03/22/16 at 21:00; Stop 03/23/16 at 13:35; Status DC Diltiazem HCl (Cardizem Cd) 120 mg DAILY PO Last administered on 04/14/16at 07: 43; Start 03/22/16 at 16:00; Stop 04/14/16 at 14:39; Status DC Hyoscyamine Sulfate (Levsin Liq) 0.125 mg Q4H PRN PEG INCREASED SECRETIONS Last administered on 04/10/16at 08:05; Start 03/22/16 at 15:15; Stop 04/11/16 at 10:24; Status DC Warfarin Sodium (Coumadin) 2 mg ONCE ONCE PO Last administered on 03/23/16 17: 26; Start 03/23/16 at 16:00; Stop 03/23/16 at 16:01; Status DC Insulin Detemir (Levemir Inj) 34 units HS SQ Last administered on 03/23/16at 20: 01; Start 03/23/16 at 21:00; Stop 03/24/16 at 13:53; Status DC Insulin Detemir (Levemir Inj) 35 units HS SQ Last administered on 11/03/16 21: 23; Start 03/24/16 at 21:00 Insulin Aspart (NovoLOG SUPPLEMENTAL SCALE) 1 ACHS SLIDING SCALE SQ Last administered on 04/16/16at 22:27; Start 03/24/16 at 16:00; Stop 04/19/16 at 17:19 ; Status DC Warfarin Sodium (Coumadin) 1 mg ONCE ONCE PO Last administered on 03/30/16at 16 :59; Start 03/30/16 at 16:00; Stop 03/30/16 at 16:01; Status DC Potassium Chloride (KCl 40 Meq/30 ml Liq) 40 meq ONCE ONCE NG Last administered on 03/31/16at 21:28; Start 03/31/16 at 18:30; Stop 03/31/16 at 18:31 ; Status DC Potassium Bicarb/ Potassium Chloride (K-Lyte Cl Eff) 25 meq ONCE ONCE PEG Last administered on 04/02/16at 12:01; Start 04/02/16 at 13:00; Stop 04/02/16 at 13:01; Status DC Metoprolol Tartrate (Lopressor) 75 mg BID PO Last administered on 05/28/16at 21: 03; Start 04/02/16 at 21:00; Stop 05/29/16 at 11:21; Status DC Potassium Bicarb/ Potassium Chloride (K-Lyte Cl Eff) 25 meq ONCE ONCE PEG Last administered on 04/04/16at 14:40; Start 04/04/16 at 12:30; Stop 04/04/16 at 12:31; Status DC Linezolid (Zyvox) 600 mg Q12HR PO Last administered on 04/16/16at 09:11; Start 04/05/16 at 15:00; Stop 04/16/16 at 12:00; Status DC Artificial Tears (Lacrilube Opht Oint) 1 applic Q12HR EACH EYE Last administered on 09/04/16 21:00; Start 04/10/16 at 11:00; Stop 09/05/16 at 14:38 ; Status DC Hyoscyamine Sulfate (Levsin) 0.25 mg Q4H PRN G-TUBE INCREASED SECRETIONS Last administered on 08/31/16 05:02; Start 04/11/16 at 10:30 Diatrizoate Meglum/ Diatrizoate Sod (Md Gastroview Liq) 18 ml ONCE ONCE PO Last administered on 04/12/16at 16:45; Start 04/12/16 at 16:15; Stop 04/12/16 at 16:16; Status DC Warfarin Sodium (Coumadin) 3 mg DAILY@16 PO ; Start 04/13/16 at 16:00; Stop 05/27/16 at 11:51; Status DC Iohexol (Omnipaque 350 Inj) 98 ml STK-MED ONCE IV Last administered on at 21:01; Start 04/12/16 at 21:01; Stop 04/12/16 at 21:02; Status DC Diltiazem HCl (Cardizem Cd) 180 mg DAILY PO ; Start 04/15/16 at 09:00; Stop at 08:50; Status DC Ondansetron HCl (Zofran Inj) 4 mg Q6HR PRN IV PUSH nausea/vomiting Last administered on 08/10/16t 10:16; Start 04/14/16 at 19:45 Diltiazem HCl 60 mg 60 mg QID PO Last administered on 04/25/16at 17:26; Start at 13:00; Stop 04/25/16 at 19:06; Status DC Sodium Chloride 500 ml @ 500 mls/hr BOLUS ONCE IV Last administered on at 09:15; Start 04/15/16 at 09:15; Stop 04/15/16 at 10:14; Status DC Potassium Chloride/Dextrose/ Sodium Chloride (KCl Inj/D5W-NS 1000 ml Inj) 1,005 ml @ 100 mls/hr Q10H3M IV Last administered on 04/15/16at 21:03; Start at 11:00; Stop 04/16/16 at 09:09; Status DC Enoxaparin Sodium (Lovenox Inj) 90 mg Q12H SQ Last administered on 04/16/16at 21 :12; Start 04/16/16 at 09:00; Stop 04/17/16 at 10:37; Status DC Water 200 ml 200 ml Q4HR TUBE Last administered on 11/04/16 08:00; Start 04/16 at 12:00 Sodium Chloride 1,000 ml @ 84 mls/hr [id number] IV Last administered on at 08:38; Start 04/16/16 at 10:00; Stop 04/20/16 at 12:04; Status DC Ceftriaxone Sodium/Sodium Chloride (Rocephin Inj/NS Inj) 100 ml @ 200 mls/hr Q24H IV Last administered on 05/02/16at 13:19; Start 04/16/16 at 12:00; Stop 05/03/16 at 12:06; Status DC Acetaminophen/ Hydrocodone Bitart ([place] 5-325 Mg) 1 tab Q6HR PEG Last administered on 09/17/16t 06:42; Start 04/18/16 at 18:00; Stop 09/17/16 at 09:17 ; Status DC Lactulose (Lactulose Liq) 30 ml NOW ONCE PEG Last administered on 04/19/16at 17 :21; Start 04/19/16 at 17:30; Stop 04/19/16 at 17:31; Status DC Lactulose (Lactulose Liq) 30 ml DAILY PEG Last administered on 05/26/16at 08:14 ; Start 04/20/16 at 09:00; Stop 05/27/16 at 11:39; Status DC Potassium Bicarb/ Potassium Chloride (K-Lyte Cl Eff) 50 meq ONCE ONCE PO Last administered on 04/20/16at 05:52; Start 04/20/16 at 05:45; Stop 04/20/16 at 05:46; Status DC Furosemide (Lasix Inj) 20 mg ONCE ONCE IV PUSH Last administered on 04/20/16at 17:35; Start 04/20/16 at 12:00; Stop 04/20/16 at 12:06; Status DC Insulin Aspart (NovoLOG SUPPLEMENTAL SCALE) 1 ACHS SLIDING SCALE SQ Last administered on 06/02/16at 12:10; Start 04/20/16 at 16:00; Stop 06/02/16 at 21: 44; Status DC Dextrose (D50w (Vial) Inj) 25 ml UNSCH PRN IV HYPOGLYCEMIA-SEE COMMENTS; Start 04/20/16 at 12:00 Glucagon (Glucagon Inj) 1 mg UNSCH PRN IM/SQ HYPOGLYCEMIA-SEE COMMENTS; Start 04/20/16 at 12:00 Lactobacillus Acidophilus (Lactinex) 1 tab Q12HR PEG Last administered on 06/06at 21:34; Start 04/22/16 at 09:00; Stop 06/07/16 at 09:32; Status DC Furosemide (Lasix Inj) 20 mg Q12H IV PUSH Last administered on 04/24/16at 08:52 ; Start 04/22/16 at 09:00; Stop 04/24/16 at 09:25; Status DC Potassium Bicarb/ Potassium Chloride (K-Lyte Cl Eff) 25 meq Q12HR TUBE Last administered on 05/27/16at 08:17; Start 04/22/16 at 09:00; Stop 05/27/16 at 11:51 ; Status DC Albumin Human (Albumin 25% Inj) 12.5 gm Q12H IV Last administered on 04/24/16at 08:46; Start 04/22/16 at 09:00; Stop 04/24/16 at 09:25; Status DC Furosemide (Lasix Inj) 20 mg DAILY IV PUSH Last administered on 05/08/16at 09: 01; Start 04/25/16 at 09:00; Stop 05/08/16 at 11:06; Status DC Albumin Human (Albumin 25% Inj) 12.5 gm DAILY IV Last administered on at 09:02; Start 04/25/16 at 10:00; Stop 05/08/16 at 11:06; Status DC Furosemide (Lasix Inj) 40 mg ONCE ONCE IV PUSH Last administered on 04/25/16at 18:15; Start 04/25/16 at 18:15; Stop 04/25/16 at 18:16; Status DC Albuterol/ Ipratropium (Duoneb Neb) 1 ampule Q6HR NEB NEB Last administered on 04/27/16at 15:52; Start 04/25/16 at 18:30; Stop 04/27/16 at 19:45; Status DC Ipratropium Buckley (Atrovent Neb) 0.5 mg Q6HR NEB NEB Last administered on at 16:51; Start 04/25/16 at 22:00; Stop 04/27/16 at 16:44; Status DC Levalbuterol HCl (Xopenex Neb) 0.31 mg Q4HR NEB NEB Last administered on at 23:48; Start 04/25/16 at 20:00; Stop 04/27/16 at 16:43; Status DC Levalbuterol HCl (Xopenex Neb) 0.31 mg Q2HR NEB PRN NEB SHORTNESS OF BREATH; Start 04/25/16 at 18:45; Stop 04/28/16 at 10:50; Status DC Diltiazem HCl (Cardizem) 90 mg QID PEG Last administered on 07/17/16at 09:27; Start 04/25/16 at 21:00; Stop 07/17/16 at 17:52; Status DC Diltiazem HCl (Cardizem) 30 mg NOW ONCE PEG Last administered on 04/25/16at 21: 36; Start 04/25/16 at 19:15; Stop 04/25/16 at 19:16; Status DC Levalbuterol HCl (Xopenex Neb) 0.31 mg Q8HR NEB NEB ; Start 04/28/16 at 00:00; Stop 04/28/16 at 10:50; Status DC Levalbuterol HCl (Xopenex Neb) 0.63 mg Q4HR NEB PRN NEB SHORTNESS OF BREATH Last administered on 05/04/16at 15:26; Start 04/28/16 at 11:00; Stop 05/04/16 at 00:51; Status DC Levalbuterol HCl (Xopenex Neb) 0.63 mg Q8HR NEB NEB Last administered on 05/04at 00:07; Start 04/28/16 at 16:00; Stop 05/04/16 at 00:50; Status DC Polyethylene Glycol/ Electrolytes 4000 ml 4,000 ml ONCE ONCE PO Last administered on 05/05/16at 08:10; Start 05/05/16 at 08:45; Stop 05/05/16 at 08 :46; Status DC Cefazolin Sodium/ Dextrose 50 ml @ 100 mls/hr ONCE ONCE IV ; Start 05/06/16 at 14:00; Stop 05/06/16 at 14:29; Status DC Metronidazole 100 ml @ 100 mls/hr ONCE ONCE IV Last administered on at 14:00; Start 05/06/16 at 14:00; Stop 05/06/16 at 14:59; Status DC Ceftriaxone Sodium/Sodium Chloride (Rocephin Inj/NS Inj) 100 ml @ 200 mls/hr Q24H IV Last administered on 06/09/16at 12:36; Start 05/03/16 at 12:00; Stop 06/10/16 at 12:48; Status DC Levalbuterol HCl (Xopenex Neb) 0.63 mg Q8HR NEB NEB Last administered on 05/05at 08:00; Start 05/04/16 at 00:49; Stop 05/05/16 at 08:07; Status DC Levalbuterol HCl (Xopenex Neb) 0.63 mg Q4HR NEB PRN NEB SHORTNESS OF BREATH Last administered on 10/18/16 15:44; Start 05/05/16 at 12:00 Levalbuterol HCl (Xopenex Neb) 0.63 mg Q8HR NEB NEB Last administered on 05/08at 23:56; Start 05/05/16 at 08:15; Stop 05/09/16 at 08:15; Status DC Potassium Bicarb/ Potassium Chloride (K-Lyte Cl Eff) 25 meq DAILY TUBE Last administered on 11/04/16 08:17; Start 05/28/16 at 09:00 Aspirin (Aspirin) 325 mg DAILY TUBE Last administered on 11/04/16 08:17; Start 05/27/16 at 11:40 Docusate Sodium (Colace Liq) 100 mg DAILY PRN PO constipation Last administered on 08/16/16 21:09; Start 05/27/16 at 11:45; Stop 08/31/16 at 09:00 ; Status DC Metoprolol Tartrate (Lopressor) 50 mg BID PO Last administered on 08/23/16 09: 03; Start 05/29/16 at 21:00; Stop 08/23/16 at 15:33; Status DC Acetaminophen/ Hydrocodone Bitart ([place] 5-325 Mg) 1 tab Q6H PRN TUBE BREAKTHROUGH PAIN Last administered on 08/02/16 15:11; Start 06/03/16 at 03:00 ; Stop 09/17/16 at 14:33; Status DC Insulin Aspart (NovoLOG SUPPLEMENTAL SCALE) 1 ACHS SLIDING SCALE SQ Last administered on 06/06/16at 21:35; Start 06/03/16 at 07:00; Stop 06/07/16 at 12 :24; Status DC Lactobacillus Acidophilus (Lactinex) 1 tab TID PEG Last administered on 09:13; Start 06/07/16 at 13:00; Stop 10/13/16 at 12:08; Status DC Insulin Aspart 1 1 AC BREAKFAST SQ Last administered on 10/28/16 06:13; Start 06/08/16 at 07:00 Ceftriaxone Sodium/Sodium Chloride (Rocephin Inj/NS Inj) 100 ml @ 200 mls/hr Q24H IV Last administered on 07/28/16 12:19; Start 06/10/16 at 12:00; Stop 07/29/16 at 13:30; Status DC Heparin Sodium (Porcine) (Heparin Inj) 5,000 units Q12HR SQ Last administered on 06/11/16at 00:58; Start 06/10/16 at 14:15; Stop 06/11/16 at 06:21; Status DC Heparin Sodium (Porcine) (Heparin Inj) 5,000 units Q8HR SQ Last administered on 11/04/16 06:03; Start 06/11/16 at 14:00 Diltiazem HCl (Cardizem) 30 mg QID PEG Last administered on 08/16/16 08:31; Start 07/17/16 at 18:00; Stop 08/16/16 at 12:06; Status DC Bacitracin 1 applic 1 applic BID TOP Last administered on 11/04/16 08:19; Start 07/20/16 at 10:00 Lactated Ringer's 1,000 ml @ 30 mls/hr Q24H IV ; Start 07/21/16 at 17:45; Stop 08/14/16 at 12:08; Status DC Sodium Chloride (NS 500 ml Inj) 500 ml @ 30 mls/hr [id number] IV ; Start 07/21/16 at 17:45; Stop 07/22/16 at 17:44; Status DC Insulin Human Regular (NovoLIN R INJ) See Protocol Table ... UNSCH X1 PRN SQ SEE PROTOCOL; Start 07/21/16 at 17:45; Stop 07/22/16 at 17:44; Status DC Metoprolol Tartrate (Lopressor) 25 mg UNSCH X1 PRN PO SEE LABEL COMMENTS; Start 07/21/16 at 17:45; Stop 07/22/16 at 17:44; Status DC Lidocaine/ Epinephrine (Xylocaine-Epi 1%-1:100,000 Inj) 40 ml STK-MED ONCE .ROUTE Last administered on 07/22/16 10:56; Start 07/22/16 at 10:04; Stop at 10:05; Status DC Ketamine HCl (Ketalar Inj) 500 mg STK-MED ONCE .ROUTE ; Start 07/22/16 at 10:50; Stop 07/22/16 at 10:51; Status DC Propofol 600 mg 600 mg STK-MED ONCE IV ; Start 07/22/16 at 12:00; Stop 07/23/16 at 14:36; Status DC Dextrose 1,000 ml @ 40 mls/hr Q24H ONCE IV Last administered on 07/28/16 14:33 ; Start 07/28/16 at 14:00; Stop 07/29/16 at 13:59; Status DC Ampicillin Sodium/ Sulbactam Sodium/ Sodium Chloride (Unasyn Inj/NS Inj) 100 ml @ 200 mls/hr Q6H IV Last administered on 08/01/16 12:30; Start 07/29/16 at 14: 00; Stop 08/01/16 at 14:13; Status DC Ondansetron HCl 4 mg 4 mg ONCE ONCE IV PUSH Last administered on 07/30/16 02: 46; Start 07/30/16 at 00:30; Stop 07/30/16 at 00:33; Status DC Lactated Ringer's 1,000 ml @ 30 mls/hr Q24H IV ; Start 07/30/16 at 06:00; Stop 08/14/16 at 12:09; Status DC Sodium Chloride (NS 500 ml Inj) 500 ml @ 30 mls/hr [id number] IV ; Start 07/30/16 at 06:00; Stop 07/31/16 at 05:59; Status DC Pantoprazole Sodium (Protonix Inj) 40 mg Q12H IV PUSH Last administered on 11/04 10:28; Start 07/30/16 at 10:15 Propofol 200 mg 200 mg STK-MED ONCE IV ; Start 07/30/16 at 09:41; Stop 07/30/16 at 10:19; Status DC Piperacillin Sod/ Tazobactam Sod (Zosyn 4.5 Gm Premix) 100 ml @ 200 mls/hr Q6H IV Last administered on 08/07/16 09:37; Start 08/01/16 at 16:00; Stop at 16:10; Status DC Linezolid (Zyvox) 600 mg Q12HR PO Last administered on 08/22/16 09:10; Start at 21:00; Stop 08/22/16 at 15:55; Status DC Sodium Chloride (Orason Angel Levels) 1 spray BID NASAL Last administered on 08:18; Start 08/01/16 at 21:00 Metronidazole 500 mg 500 mg Q8H PO Last administered on 08/08/16 08:28; Start 08/07/16 at 16:00; Stop 08/08/16 at 16:10; Status DC Sodium Chloride (NS 1000 ml Inj) 1,000 ml @ 42 mls/hr [id number] IV Last administered on 08/14/16 12:44; Start 08/14/16 at 12:00; Stop 08/15/16 at 10:56 ; Status DC Fentanyl Citrate (fentaNYL INJ) 250 mcg STK-MED ONCE .ROUTE Last administered on 08/14/16 15:36; Start 08/14/16 at 15:36; Stop 08/14/16 at 15:37; Status DC Iohexol (Omnipaque 350 Inj) 30 ml STK-MED ONCE G-TUBE Last administered on 08/14 15:45; Start 08/14/16 at 15:52; Stop 08/14/16 at 15:53; Status DC Diltiazem HCl (Cardizem) 30 mg QID PEG Last administered on 11/04/16 08:16; Start 08/16/16 at 13:00 Polyethylene Glycol (Miralax) 17 gm ONCE ONCE PEG Last administered on 11:32; Start 08/17/16 at 12:00; Stop 08/17/16 at 12:01; Status DC Amoxicillin 500 mg 500 mg Q8HR PO Last administered on 11/04/16 06:03; Start 08/22/16 at 22:00 Cefepime HCl/ Sodium Chloride (Maxipime Inj/NS Inj) 100 ml @ 200 mls/hr Q8H IV Last administered on 09/03/16 10:46; Start 08/23/16 at 16:00; Stop 09/03/16 at 15:02; Status DC Metoprolol Tartrate (Lopressor) 75 mg BID PO Last administered on 09/13/16 08: 42; Start 08/23/16 at 21:00; Stop 09/13/16 at 13:09; Status DC Docusate Sodium (Colace Liq) 100 mg BID PO Last administered on 11/04/16 08:17 ; Start 08/30/16 at 21:00 Sennosides (Senokot) 17.2 mg DAILY PO Last administered on 09/25/16 08:36; Start 08/30/16 at 14:00; Stop 09/25/16 at 16:09; Status DC Lactulose (Lactulose Liq) 30 ml DAILY PO Last administered on 11/04/16 08:17; Start 09/02/16 at 15:30 Artificial Tears (Tears Naturale Opth Soln) 1 drop BID EACH EYE Last administered on 11/04/16 08:18; Start 09/05/16 at 21:00 Midazolam HCl (Versed Inj) 2 mg STK-MED ONCE .ROUTE Last administered on 11:37; Start 09/09/16 at 11:37; Stop 09/09/16 at 11:38; Status DC Fentanyl Citrate (fentaNYL INJ) 100 mcg STK-MED ONCE .ROUTE Last administered on 09/09/16 11:38; Start 09/09/16 at 11:38; Stop 09/09/16 at 11:39; Status DC Iohexol (Omnipaque 350 Inj) 20 ml STK-MED ONCE G-TUBE Last administered on 09/09 11:50; Start 09/09/16 at 11:50; Stop 09/09/16 at 12:15; Status DC Metoprolol Tartrate (Lopressor) 50 mg BID PO Last administered on 11/04/16 08: 16; Start 09/13/16 at 21:00 Acetaminophen/ Hydrocodone Bitart ([place] 5-325 Mg) 1 tab Q6H PEG ; Start at 11:00; Stop 09/17/16 at 14:25; Status DC Acetaminophen/ Hydrocodone Bitart ([place] 5-325 Mg) 1 tab DAILY@1600 PO ; Start 09/17/16 at 16:00; Stop 09/17/16 at 16:00; Status DC Morphine Sulfate (Morphine Inj) 1 mg Q24H PRN IV PUSH dressing change 30 min before Last administered on 10/22/16 02:00; Start 09/17/16 at 14:30 Acetaminophen/ Hydrocodone Bitart ([place] 5-325 Mg) 1 tab DAILY@0000 PO Last administered on 09/17/16 23:43; Start 09/18/16 at 00:00; Stop 09/20/16 at 12:46; Status DC Acetaminophen/ Hydrocodone Bitart ([place] 5-325 Mg) 1 tab Q8H PO Last administered on 10/13/16 13:38; Start 09/20/16 at 13:00; Stop 10/13/16 at 18:29 ; Status DC Ketoconazole (Nizoral 2% Cream) 1 applic Q12HR TOPICAL Last administered on 21:23; Start 09/24/16 at 21:00 Sennosides (Senna Liq) 8.8 mg DAILY@1600 PO Last administered on 11/03/16 15: 02; Start 09/25/16 at 17:00 Sodium Biphosphate/ Sodium Phosphate (Fleets Enema (Adult)) 133 ml UNSCH PRN [place] CONSTIPATION; Start 09/25/16 at 16:00 Bisacodyl (Dulcolax Supp) 10 mg DAILY PRN RECTAL CONSTIPATION Last administered on 10/20/16 12:53; Start 09/26/16 at 15:30 Bisacodyl (Dulcolax Supp) 10 mg ONCE ONCE RECTAL Last administered on 16:10; Start 09/26/16 at 15:30; Stop 09/26/16 at 15:31; Status DC Cyclobenzaprine HCl (Flexeril) 5 mg Q8H PO Last administered on 10/13/16 13:37 ; Start 10/13/16 at 12:15; Stop 10/13/16 at 18:27; Status DC Magnesium Hydroxide (Milk Of Magnesia Liq) 30 ml DAILY PRN PO constipation Last administered on 10/20/16 12:54; Start 10/13/16 at 14:30 Acetaminophen/ Hydrocodone Bitart ([place] 5-325 Mg) 1 tab Q6H PRN PO PAIN SCALE 1 TO 10; Start 10/13/16 at 18:30; Stop 10/13/16 at 18:30; Status DC Acetaminophen/ Hydrocodone Bitart ([place] 5-325 Mg) 1 tab Q6H PRN PO PAIN SCALE 1 TO 10 Last administered on 11/03/16 21:21; Start 10/13/16 at 18:45 Cyclobenzaprine HCl (Flexeril) 5 mg HS PRN PO muscle relaxant Last administered on 10/22/16 21:17; Start 10/14/16 at 14:15 Fentanyl Citrate (fentaNYL INJ) 100 mcg STK-MED ONCE .ROUTE ; Start 10/23/16 at 16:51; Stop 10/23/16 at 16:52; Status DC Glycerin (Glycerin Adult Supp) 2 gm ONCE ONCE RECTAL Last administered on 15:29; Start 10/26/16 at 15:00; Stop 10/26/16 at 15:01; Status DC Nitrofurantoin Macrocrystals (Macrobid) 100 mg BIDPC PO Last administered on 09:36; Start 10/26/16 at 15:00; Stop 10/29/16 at 14:59; Status DC Date of Insertion: Oct 12, 2016 A/P Assessment and Plan A/P 60-year-old male with: CVA Paraplegia 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 Keppra continued (for seizures) Supportive Care custodial care needed for chronic and profound neurologic deficits. Recovery is not expected to occur. Medicaid with SSI pending. Recent Fever- now has resolved Constipation Resolved Clogged PEG tube Has occured on 10/14 and 10/23 Follow for recurrence Continue Flushes GI if replacement needed Chronic respiratory failure Related to CVA Continue trach management PRN Levsin pulmonary following. Atrial fibrillation Cardizem Metoprolol Follow heart rate History of non-Hodgkin's lymphoma Follow clinically Diabetes mellitus Follow blood sugars Decubitus ulcer stage IV: Wound care per irrigator wound vas was discontinued due to bleeding ( 10/29/16). Frequent turns Colostomy declined by family (inability to divert feces in this chronic setting increases risks with ulcer and for recurrence of ulcers) Chronic Arevalo Follow for UTIs Hx of Gastric Ulcer Follow clinically PPI Monitor H/H periodically. FEN: Continue tube feeds. Appreciate dietary recommendations. Continue free water flushes. DVT prophylaxis: SCDs. clinically no change. continue current care. Discharge Planning dc planning to SNF-no funding- SSI pending. Medardo Au MD Nov 04, 2016 12:08
[2016-11-04] MEDS: SENNOSIDES SYRUP 8.8 MG/5 ML CUP PO SCH (16:00)
--- NOTE | 2016-11-04 18:07 | HHI.PR ---
Subjective Remarks opens eyes on o2 , o2 SAT 96 on T PIECE Objective Vital Signs Date Time Temp Pulse Resp B/P Pulse Ox O2 Delivery O2 Flow Rate FiO2 11/04/16 16:39 101/61 11/04/16 16:00 97.8 90 17 116/73 98 11/04/16 14:46 99 T-piece 11/04/16 12:00 98.0 78 17 117/76 99 11/04/16 08:00 98.0 87 17 137/72 95 11/04/16 04:00 96.3 86 20 120/69 98 11/04/16 03:14 96 11/04/16 00:00 98.1 82 20 109/65 97 11/03/16 20:00 98.0 91 20 109/74 98 11/03/16 19:00 T-Piece 6.00 28 I/O 11/03/16 11/03/16 11/03/16 11/04/16 11/04/16 11/04/16 07:00 15:00 23:00 07:00 15:00 23:00 Intake Total 893 ml 1833 ml 893 ml Output Total 950 ml 750 ml 800 ml 150 ml 400 ml Balance -57 ml -750 ml 1033 ml 743 ml -400 ml Tube Feeding 493 ml 1833 ml 493 ml Other 400 ml 400 ml Output Urine Total 950 ml 750 ml 800 ml 150 ml 400 ml # Bowel Movements 0 1 0 0 Procedures 01/02/16 PEG placement 01/02/16 tracheostomy 07/22/2016 Wide excision of sacral skin wound, biopsy of the cavity lining and debridement. PEG tube replacement 07/29/16 Objective Remarks GENERAL: SKIN: Warm and dry. HEAD: Atraumatic. Normocephalic. EYES: Pupils equal and round. No scleral icterus. No injection or drainage. ENT: No nasal bleeding or discharge. Mucous membranes pink and moist. NECK: Trachea midline. No JVD. TRACH. [place] CARDIOVASCULAR: Regular rate and rhythm. RESPIRATORY: No accessory muscle use. Clear to auscultation. Breath sounds equal bilaterally. GASTROINTESTINAL: Abdomen soft, non-tender, nondistended. Hepatic and splenic margins not palpable. MUSCULOSKELETAL: Extremities without clubbing, cyanosis, or edema. No obvious deformities. NEUROLOGICAL: Awake and alert. No obvious cranial nerve deficits. Motor grossly within normal limits. Five out of 5 muscle strength in the arms and legs. Normal speech. PSYCHIATRIC: Appropriate mood and affect; insight and judgment normal. Assessment and Plan Assessment and Plan impression respiratory failure CVA S/P TRACHEOSTOMY PLAN O2 NEEDED PULM. TOILET Brandon Taylor MD Nov 04, 2016 18:07
[2016-11-04] MEDS: PARoxetine HCL SUSP 20 MG/10 ML UDC PEG SCH (18:31)
[2016-11-04] MEDS: ACETAMINOPHEN/HYDROcodone 325 MG/5 MG TAB PO PRN (20:53)
[2016-11-04] MEDS: INSULIN DETEMIR 100 UNITS/ML VIAL SQ SCH (21:00)
[2016-11-05] VITALS (10 sets, daily range): BP systolic 113–138; BP diastolic 72–83; PULSE 84–92; RESP 18; TEMP 97.2–98.9; O2SAT 95–100
[2016-11-05] MEDS: BACITRACIN TOP OINT 15 GM TUBE TOP SCH ×3 (00:16→23:10)
[2016-11-05] MEDS: NYSTATIN 100,000 U/GM PWD 15 GM BTL TOPICAL SCH ×3 (00:17→23:10)
[2016-11-05] MEDS: ACETIC ACID 0.25% SOLN 1000 ML IRR BTL IRRIGATION SCH ×4 (00:18→22:00)
[2016-11-05] MEDS: HEPARIN SODIUM - SQ 10,000 UNITS/ML VIAL SQ SCH ×4 (00:19→23:07)
[2016-11-05] MEDS: FREE WATER TUBE SCH ×6 (00:20→20:00)
[2016-11-05] MEDS: AMOXICILLIN (TRIHYDRATE) 500 MG CAP PO SCH ×3 (05:52→23:08)
[2016-11-05] MEDS: INSULIN ASPART SUPPLEMENTAL SCALE SQ SCH (07:00)
[2016-11-05] MEDS: DILTIAZEM HCL 30 MG TAB PEG SCH ×4 (08:14→21:00)
[2016-11-05] MEDS: POTASSIUM CHLORIDE 25 MEQ EFFERVESCENT TAB TUBE SCH (08:14)
[2016-11-05] MEDS: DOCUSATE SODIUM 100 MG/10 ML UDC PO SCH ×2 (08:14→23:08)
[2016-11-05] MEDS: ASPIRIN 325 MG TAB TUBE SCH (08:14)
[2016-11-05] MEDS: METOPROLOL TARTRATE 50 MG TAB PO SCH ×2 (08:14→23:09)
[2016-11-05] MEDS: levETIRAcetam 500 MG/5 ML UDC TUBE SCH ×2 (08:14→23:09)
[2016-11-05] MEDS: LACTULOSE SYRUP 20 GM/30 ML CUP PO SCH (08:14)
[2016-11-05] MEDS: KETOCONAZOLE 2% CREAM 15 GM TOPICAL SCH ×2 (08:15→21:00)
[2016-11-05] MEDS: ARTIFICIAL TEARS OPTH SOLN 15 ML BTL EACH EYE SCH ×2 (08:16→23:12)
[2016-11-05] MEDS: SODIUM CHLORIDE 0.65% NASAL SPRAY 45 ML BTL NASAL SCH ×2 (08:16→23:12)
--- NOTE | 2016-11-05 08:26 | HHI.PR ---
Subjective Remarks opens eyes on o2 , o2 SAT 95 ON T PIECE NO DITRESS TRACH. [place] Objective Vital Signs Date Time Temp Pulse Resp B/P Pulse Ox O2 Delivery O2 Flow Rate FiO2 11/05/16 04:00 98.9 87 18 138/82 95 11/05/16 00:00 97.2 92 18 116/79 98 11/04/16 20:00 97.2 92 18 94/63 99 11/04/16 19:58 99 T-piece 28 11/04/16 16:39 101/61 11/04/16 16:00 97.8 90 17 116/73 98 11/04/16 14:46 99 T-piece 11/04/16 12:00 98.0 78 17 117/76 99 I/O 11/04/16 11/04/16 11/04/16 11/05/16 11/05/16 11/05/16 07:00 15:00 23:00 07:00 15:00 23:00 Intake Total 893 ml Output Total 150 ml 400 ml 2100 ml Balance 743 ml -400 ml -2100 ml Tube Feeding 493 ml Other 400 ml Output Urine Total 150 ml 400 ml 2100 ml # Bowel Movements 0 1 Procedures 01/02/16 PEG placement 01/02/16 tracheostomy 07/22/2016 Wide excision of sacral skin wound, biopsy of the cavity lining and debridement. PEG tube replacement 07/29/16 Objective Remarks GENERAL: SKIN: Warm and dry. HEAD: Atraumatic. Normocephalic. EYES: Pupils equal and round. No scleral icterus. No injection or drainage. ENT: No nasal bleeding or discharge. Mucous membranes pink and moist. NECK: Trachea midline. No JVD. TRACH. [place] CARDIOVASCULAR: Regular rate and rhythm. RESPIRATORY: No accessory muscle use. Clear to auscultation. Breath sounds equal bilaterally. GASTROINTESTINAL: Abdomen soft, non-tender, nondistended. Hepatic and splenic margins not palpable. MUSCULOSKELETAL: Extremities without clubbing, cyanosis, or edema. No obvious deformities. NEUROLOGICAL: Awake and alert. No obvious cranial nerve deficits. Motor grossly within normal limits. Five out of 5 muscle strength in the arms and legs. Normal speech. PSYCHIATRIC: Appropriate mood and affect; insight and judgment normal. Assessment and Plan Assessment and Plan impression respiratory failure CVA S/P TRACHEOSTOMY PLAN O2 NEEDED PULM. TOILET Brandon Taylor MD Nov 05, 2016 08:25
[2016-11-05] MEDS: PANTOPRAZOLE SODIUM 40 MG VIAL IV PUSH SCH ×2 (10:20→23:07)
--- NOTE | 2016-11-05 11:30 | HHI.PR ---
Subjective Remarks This is a pleasant 60 y/o male with Paroxysmal Atrial Fibrillation, Hypertension , Stage IIIa Non Hodgkin Lymphoma, status post Chemotherapy with Rituxan, CHOP 2014, who was brought in to ER with AMS CT scan of the brain showed no focal or acute intracranial Hemorrhage, he had recent Brain Biopsy he became obtunded in ER and was Intubated, Transferred initially to ICU, ID specialist started on 08/23/16 with diagnosis of Sacral Ulcer and Pneumonia Amoxicillin and Cefepime for the next two months. so he has all September and perhaps first days of October with antibiotics. 11/05: Seen in his bedroom in the presence of his Mother, no nausea, vomit or diarrhea, breathing well good tube feedings. Objective Vital Signs Date Time Temp Pulse Resp B/P Pulse Ox O2 Delivery O2 Flow Rate FiO2 11/05/16 10:56 98 T-piece 28 11/05/16 10:10 98 T-piece 28 11/05/16 08:00 97.3 86 18 113/73 98 11/05/16 04:00 98.9 87 18 138/82 95 11/05/16 00:00 97.2 92 18 116/79 98 11/04/16 20:00 97.2 92 18 94/63 99 11/04/16 19:58 99 T-piece 28 11/04/16 16:39 101/61 11/04/16 16:00 97.8 90 17 116/73 98 11/04/16 14:46 99 T-piece 11/04/16 12:00 98.0 78 17 117/76 99 I/O 11/04/16 11/04/16 11/04/16 11/05/16 11/05/16 11/05/16 07:00 15:00 23:00 07:00 15:00 23:00 Intake Total 893 ml Output Total 150 ml 400 ml 2100 ml Balance 743 ml -400 ml -2100 ml Tube Feeding 493 ml Other 400 ml Output Urine Total 150 ml 400 ml 2100 ml # Bowel Movements 0 1 Imaging Last Impressions Tube Change 10/23/16 0000 Signed Impressions: Service Date/Time: Sunday, October 23, 2016 16:34 - CONCLUSION: Uncomplicated gastrojejunostomy tube exchange as above. Existing tube was patent with some luminal narrowing. The balloon port was damaged and leaking, however. Bobby Gray MD Chest X-Ray 10/18/16 0000 Signed Impressions: Service Date/Time: Tuesday, October 18, 2016 19:17 - CONCLUSION: 1. Minimal right perihilar streakiness consistent with probable atelectasis. 2. Elevation of the right hemidiaphragm. 3. Tracheostomy tube in good position above the geno. Eduardo Valenzuela MD Abdomen X-Ray 08/31/16 0000 Signed Impressions: Service Date/Time: Wednesday, August 31, 2016 16:36 - CONCLUSION: 1. No acute findings. Mild constipation. Durga Dotson MD Abdomen/Pelvis CT 04/12/16 0000 Signed Impressions: Service Date/Time: Tuesday, April 12, 2016 20:52 - CONCLUSION: 1. 6.4 cm necrotic mass or abscess in the soft tissues posteriorly just below the sacrum associated with some bony destructive change of the lower most sacrum and coccyx with inflammatory changes extending into the ischiorectal fossa and into the presacral retroperitoneum predominantly on the left side. There is associated fairly marked mural thickening of the anal verge and rectum. 2. There is gastrostomy and Arevalo catheter present. Stable abdominal aortic aneurysm. Durga Dotson MD Head Magnetic Resonance Angiography 03/05/16 0000 Signed Impressions: Service Date/Time: Saturday, March 05, 2016 09:26 - CONCLUSION: Persistent high-grade subtotal occlusive stenotic lesions in the distal right vertebral artery and proximal basilar artery with significant improvement in flow and recanalization following initial presentation of thrombosis. Stable interstitial circulation without significant stenosis. 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 There is decreasing restricted diffusion and increasing loss of volume characteristic of a subacute to chronic infarct. No evidence of acute infarct, acute hemorrhage mass or edema. Ernesto Kulkarni MD Head CT 01/16/16 0000 Signed Impressions: Service Date/Time: Saturday, January 16, 2016 10:51 - CONCLUSION: No extensive low density in the brainstem colin more prominent in the right the left extending into the right middle cerebellar peduncle consistent with brainstem infarct nonhemorrhagic acute Wellington West MD Neck Magnetic Resonance Angiography 12/22/15 2615 Signed Impressions: Service Date/Time: Tuesday, December 22, 2015 09:22 - CONCLUSION: Variant origin of the left vertebral artery from the aortic arch. No evidence of carotid stenosis. Glen Zamora MD Head/Brain Mag Res Venography 12/22/15 0000 Signed Impressions: Service Date/Time: Tuesday, December 22, 2015 09:22 - CONCLUSION: Normal MRV. Jonel Jones Jr., MD Procedures 01/02/16 PEG placement 01/02/16 tracheostomy 07/22/2016 Wide excision of sacral skin wound, biopsy of the cavity lining and debridement. PEG tube replacement 07/29/16 Other Results No new laboratory Objective Remarks GENERAL: on Trach- in no apparent distress. CARDIOVASCULAR: Regular rate and regular rhythm without murmurs, gallops, or rubs. RESPIRATORY: Clear to auscultation. Breath sounds equal bilaterally. No wheezes , rales, or rhonchi. GASTROINTESTINAL: Abdomen soft, non-tender,distended. hypoactive bowel sounds-PEG in place MUSCULOSKELETAL: Extremities without clubbing, cyanosis, or edema. NEURO: awake Medications and IVs Current Medications Medications (Trade) Dose Ordered Sig/Junior Route Start Time Stop Time Status Last Admin (NS Flush) 2 ml UNSCH PRN IVF 12/21/15 06:00 09/28/16 21:18 (Keppra Liq) 500 mg Q12HR TUBE 12/27/15 21:00 11/05/16 08:14 (Tylenol 650 Mg/ 20 ml Liq) 650 mg Q6H PRN TUBE 12/30/15 15:15 10/25/16 15:13 (Mycostatin Powder) 1 applic Q12HR TOPICAL 01/08/16 21:00 11/05/16 00:17 (Pill Splitter) 1 ea UNSCH PRN OTHER 01/14/16 08:30 (Acetic Acid 0.25% Irr Btl) 10 ml Q8HR IRRIGATION 02/05/16 16:00 11/05/16 05:51 (Ativan Inj) 0.5 mg Q4H PRN IV PUSH 03/07/16 23:00 (Paxil Liq) 20 mg DAILY@1900 PEG 03/12/16 19:00 11/04/16 18:31 (Levemir Inj) 35 units HS SQ 03/24/16 21:00 4/17/17 21:00 (Levsin) 0.25 mg Q4H PRN G-TUBE 04/11/16 10:30 08/31/16 05:02 (Zofran Inj) 4 mg Q6HR PRN IV PUSH 04/14/16 19:45 08/10/16 10:16 (Free Water) 200 ml Q4HR TUBE 04/16/16 12:00 11/05/16 08:00 (D50w (Vial) Inj) 25 ml UNSCH PRN IV 04/20/16 12:00 (Glucagon Inj) 1 mg UNSCH PRN IM/SQ 04/20/16 12:00 (K-Lyte Cl Eff) 25 meq DAILY TUBE 05/28/16 09:00 11/05/16 08:14 (Aspirin) 325 mg DAILY TUBE 05/27/16 11:40 11/05/16 08:14 (Heparin Inj) 5,000 units Q8HR SQ 06/11/16 14:00 11/05/16 05:52 (Baciguent Oint) 1 applic BID TOP 07/20/16 10:00 11/05/16 08:17 (Protonix Inj) 40 mg Q12H IV PUSH 07/30/16 10:15 11/05/16 10:20 ([place] Angel [place]) 1 spray BID NASAL 08/01/16 21:00 11/05/16 08:16 (Cardizem) 30 mg QID PEG 08/16/16 13:00 11/05/16 08:14 (Trimox) 500 mg Q8HR PO 08/22/16 22:00 11/05/16 05:52 (Colace Liq) 100 mg BID PO 08/30/16 21:00 11/05/16 08:14 (Lactulose Liq) 30 ml DAILY PO 09/02/16 15:30 11/05/16 08:14 (Tears Naturale Opth Soln) 1 drop BID EACH EYE 09/05/16 21:00 11/05/16 08:16 (Lopressor) 50 mg BID PO 09/13/16 21:00 11/05/16 08:14 (Morphine Inj) 1 mg Q24H PRN IV PUSH 09/17/16 14:30 10/22/16 02:00 (Nizoral 2% Cream) 1 applic Q12HR TOPICAL 09/24/16 21:00 11/04/16 21:00 (Senna Liq) 8.8 mg DAILY@1600 PO 09/25/16 17:00 11/04/16 16:00 (Fleets Enema (Adult)) 133 ml UNSCH PRN [place] 09/25/16 16:00 (Dulcolax Supp) 10 mg DAILY PRN RECTAL 09/26/16 15:30 10/20/16 12:53 (Milk Of Magnesia Liq) 30 ml DAILY PRN PO 10/13/16 14:30 10/20/16 12:54 ([place] 5-325 Mg) 1 tab Q6H PRN PO 10/13/16 18:45 11/04/16 20:53 (Flexeril) 5 mg HS PRN PO 10/14/16 14:15 10/22/16 21:17 A/P Assessment and Plan 1. 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 Tracks with his eyes. Continue Keppra for seizure prophylaxis. PT/OT signed off as patient is unable to participate. -Need placement. Difficult. Appreciate case management assistance. 2. Clogged PEG tube on 10/14 and 10/23 status post PEG tube change 3. Chronic respiratory failure -Secondary to CVA. Status post tracheostomy. Continue pulmonary toilet and bronchodilators as needed. Continue trach care, suctioning. Levsin as needed. -Pulmonary currently following . Appreciate assistance. 4. Atrial fibrillation -Continue rate control with Cardizem and metoprolol. Echocardiogram in November 2015 shows preserved ejection fraction. Coumadin discontinued secondary to bleeding. Rate controlled. Continue aspirin and prophylactic heparin dose. 5. History of non-Hodgkin's lymphoma - Status post brain biopsy on December 13 by neurosurgery. Pathology consistent with acute infarct without evidence of lymphoma. Oncology has signed Off 6. Diabetes mellitus -Hemoglobin A1c is 7. Continue Levemir. Monitor Accu-Cheks and cover with sliding scale insulin. Overall blood sugar continues well controlled. 7. Decubitus ulcer stage IV -Continue wound care, twice-daily dressing changes. Wound care recommendations. Continue pressure relief measures including turning and positioning. Patient's family has declined a diverting colostomy. Previous Wound culture growing Klebsiella. on Augmentin. Status post wide excision of sacral skin and biopsy of the cavity lining with debridement on 07/22/16. ID specialist recommended to continue on Amoxicillin and Cefepime for two months will be until the end of September or first days of October. 8. Gastric ulcer, reflux esophagitis - EGD on 07/30/16 showed gastric ulcers. Appreciate GI recommendations. Continue PPI. H&H stable. 9. UTI pseudomonas aeruginosa treated with abx - Resolved. - Repeat Ucx 08/28/16 negative. 10. Constipation: -Having regular bowel movements. -on lactulose. Monitor. 11. Anemia Hemoglobin 9.4 stable DVT prophylaxis on Heparin Discussed with his Mother in the room. Discharge Planning dc planning to SNF-no funding- SSI pending. Arnulfo Us MD Nov 05, 2016 11:30
[2016-11-05] MEDS: SENNOSIDES SYRUP 8.8 MG/5 ML CUP PO SCH (16:51)
[2016-11-05] MEDS: PARoxetine HCL SUSP 20 MG/10 ML UDC PEG SCH (18:06)
[2016-11-05] MEDS: ACETAMINOPHEN/HYDROcodone 325 MG/5 MG TAB PO PRN (23:08)
[2016-11-05] MEDS: INSULIN DETEMIR 100 UNITS/ML VIAL SQ SCH (23:09)
[2016-11-06] VITALS (10 sets, daily range): BP systolic 96–125; BP diastolic 59–79; PULSE 79–100; RESP 18–20; TEMP 95.5–97.7; O2SAT 97–100
[2016-11-06] MEDS: FREE WATER TUBE SCH ×6 (04:00→20:00)
[2016-11-06] MEDS: ACETIC ACID 0.25% SOLN 1000 ML IRR BTL IRRIGATION SCH ×3 (05:34→22:15)
[2016-11-06] MEDS: AMOXICILLIN (TRIHYDRATE) 500 MG CAP PO SCH ×3 (05:35→22:14)
[2016-11-06] MEDS: HEPARIN SODIUM - SQ 10,000 UNITS/ML VIAL SQ SCH ×3 (05:35→22:13)
[2016-11-06] MEDS: INSULIN ASPART SUPPLEMENTAL SCALE SQ SCH (06:01)
[2016-11-06] MEDS: ASPIRIN 325 MG TAB TUBE SCH (08:18)
[2016-11-06] MEDS: DILTIAZEM HCL 30 MG TAB PEG SCH ×4 (08:18→22:14)
[2016-11-06] MEDS: levETIRAcetam 500 MG/5 ML UDC TUBE SCH ×2 (08:19→22:14)
[2016-11-06] MEDS: POTASSIUM CHLORIDE 25 MEQ EFFERVESCENT TAB TUBE SCH (08:19)
[2016-11-06] MEDS: METOPROLOL TARTRATE 50 MG TAB PO SCH ×2 (08:19→22:14)
[2016-11-06] MEDS: LACTULOSE SYRUP 20 GM/30 ML CUP PO SCH (08:19)
[2016-11-06] MEDS: DOCUSATE SODIUM 100 MG/10 ML UDC PO SCH ×2 (08:19→22:13)
[2016-11-06] MEDS: ARTIFICIAL TEARS OPTH SOLN 15 ML BTL EACH EYE SCH ×2 (08:28→22:15)
[2016-11-06] MEDS: SODIUM CHLORIDE 0.65% NASAL SPRAY 45 ML BTL NASAL SCH ×2 (08:28→21:00)
--- NOTE | 2016-11-06 08:30 | HHI.PR ---
Subjective Remarks This is a pleasant 60 y/o male with Paroxysmal Atrial Fibrillation, Hypertension , Stage IIIa Non Hodgkin Lymphoma, status post Chemotherapy with Rituxan, CHOP 2014, who was brought in to ER with AMS CT scan of the brain showed no focal or acute intracranial Hemorrhage, he had recent Brain Biopsy he became obtunded in ER and was Intubated, Transferred initially to ICU, ID specialist started on 08/23/16 with diagnosis of Sacral Ulcer and Pneumonia Amoxicillin and Cefepime for the next two months. so he has all September and perhaps first days of October with antibiotics. 11/06: Patient stable in his bedroom, in the presence of his mother and Nurse, no nausea, vomit or Diarrhea. Objective Vital Signs Date Time Temp Pulse Resp B/P Pulse Ox O2 Delivery O2 Flow Rate FiO2 11/06/16 04:00 96.1 82 20 116/71 100 11/06/16 02:41 84 11/06/16 00:08 19 11/06/16 00:00 97.7 100 20 118/79 99 11/05/16 21:03 T-Piece 28 11/05/16 20:00 97.2 89 18 118/72 100 11/05/16 18:37 98 T-piece 6.00 28 11/05/16 16:52 119/76 11/05/16 16:00 97.6 85 18 119/76 98 11/05/16 12:00 97.4 84 18 134/83 99 11/05/16 10:56 98 T-piece 28 11/05/16 10:10 98 T-piece 28 I/O 11/05/16 11/05/16 11/05/16 11/06/16 11/06/16 11/06/16 07:00 15:00 23:00 07:00 15:00 23:00 Intake Total 623 ml 710 ml Output Total 2100 ml 700 ml 650 ml Balance -2100 ml -700 ml 623 ml 60 ml Tube Feeding 623 ml 710 ml Output Urine Total 2100 ml 700 ml 650 ml # Bowel Movements 1 1 Imaging Last Impressions Tube Change 10/23/16 0000 Signed Impressions: Service Date/Time: Sunday, October 23, 2016 16:34 - CONCLUSION: Uncomplicated gastrojejunostomy tube exchange as above. Existing tube was patent with some luminal narrowing. The balloon port was damaged and leaking, however. Bobby Gray MD Chest X-Ray 10/18/16 0000 Signed Impressions: Service Date/Time: Tuesday, October 18, 2016 19:17 - CONCLUSION: 1. Minimal right perihilar streakiness consistent with probable atelectasis. 2. Elevation of the right hemidiaphragm. 3. Tracheostomy tube in good position above the geno. Eduardo Valenzuela MD Abdomen X-Ray 08/31/16 0000 Signed Impressions: Service Date/Time: Wednesday, August 31, 2016 16:36 - CONCLUSION: 1. No acute findings. Mild constipation. Durga Dotson MD Abdomen/Pelvis CT 04/12/16 0000 Signed Impressions: Service Date/Time: Tuesday, April 12, 2016 20:52 - CONCLUSION: 1. 6.4 cm necrotic mass or abscess in the soft tissues posteriorly just below the sacrum associated with some bony destructive change of the lower most sacrum and coccyx with inflammatory changes extending into the ischiorectal fossa and into the presacral retroperitoneum predominantly on the left side. There is associated fairly marked mural thickening of the anal verge and rectum. 2. There is gastrostomy and Arevalo catheter present. Stable abdominal aortic aneurysm. Durga Dotson MD Head Magnetic Resonance Angiography 03/05/16 0000 Signed Impressions: Service Date/Time: Saturday, March 05, 2016 09:26 - CONCLUSION: Persistent high-grade subtotal occlusive stenotic lesions in the distal right vertebral artery and proximal basilar artery with significant improvement in flow and recanalization following initial presentation of thrombosis. Stable interstitial circulation without significant stenosis. 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 There is decreasing restricted diffusion and increasing loss of volume characteristic of a subacute to chronic infarct. No evidence of acute infarct, acute hemorrhage mass or edema. Ernesto Kulkarni MD Head CT 01/16/16 0000 Signed Impressions: Service Date/Time: Saturday, January 16, 2016 10:51 - CONCLUSION: No extensive low density in the brainstem colin more prominent in the right the left extending into the right middle cerebellar peduncle consistent with brainstem infarct nonhemorrhagic acute Wellington West MD Neck Magnetic Resonance Angiography 12/22/15 1445 Signed Impressions: Service Date/Time: Tuesday, December 22, 2015 09:22 - CONCLUSION: Variant origin of the left vertebral artery from the aortic arch. No evidence of carotid stenosis. Glen Zamora MD Head/Brain Mag Res Venography 12/22/15 0000 Signed Impressions: Service Date/Time: Tuesday, December 22, 2015 09:22 - CONCLUSION: Normal MRV. Jonel Jones Jr., MD Procedures 01/02/16 PEG placement 01/02/16 tracheostomy 07/22/2016 Wide excision of sacral skin wound, biopsy of the cavity lining and debridement. PEG tube replacement 07/29/16 Other Results No new laboratory Objective Remarks GENERAL: on Trach- in no apparent distress. CARDIOVASCULAR: Regular rate and regular rhythm without murmurs, gallops, or rubs. RESPIRATORY: Clear to auscultation. Breath sounds equal bilaterally. No wheezes , rales, or rhonchi. GASTROINTESTINAL: Abdomen soft, non-tender,distended. hypoactive bowel sounds-PEG in place MUSCULOSKELETAL: Extremities without clubbing, cyanosis, or edema. NEURO: awake Medications and IVs Current Medications Medications (Trade) Dose Ordered Sig/Junior Route Start Time Stop Time Status Last Admin (NS Flush) 2 ml UNSCH PRN IVF 12/21/15 06:00 09/28/16 21:18 (Keppra Liq) 500 mg Q12HR TUBE 12/27/15 21:00 11/05/16 23:09 (Tylenol 650 Mg/ 20 ml Liq) 650 mg Q6H PRN TUBE 12/30/15 15:15 10/25/16 15:13 (Mycostatin Powder) 1 applic Q12HR TOPICAL 01/08/16 21:00 11/05/16 23:10 (Pill Splitter) 1 ea UNSCH PRN OTHER 01/14/16 08:30 (Acetic Acid 0.25% Irr Btl) 10 ml Q8HR IRRIGATION 02/05/16 16:00 11/06/16 05:34 (Ativan Inj) 0.5 mg Q4H PRN IV PUSH 03/07/16 23:00 (Paxil Liq) 20 mg DAILY@1900 PEG 03/12/16 19:00 11/05/16 18:06 (Levemir Inj) 35 units HS SQ 03/24/16 21:00 11/05/16 23:09 (Levsin) 0.25 mg Q4H PRN G-TUBE 04/11/16 10:30 08/31/16 05:02 (Zofran Inj) 4 mg Q6HR PRN IV PUSH 04/14/16 19:45 08/10/16 10:16 (Free Water) 200 ml Q4HR TUBE 04/16/16 12:00 11/06/16 04:00 (D50w (Vial) Inj) 25 ml UNSCH PRN IV 04/20/16 12:00 (Glucagon Inj) 1 mg UNSCH PRN IM/SQ 04/20/16 12:00 (K-Lyte Cl Eff) 25 meq DAILY TUBE 05/28/16 09:00 11/05/16 08:14 (Aspirin) 325 mg DAILY TUBE 05/27/16 11:40 11/05/16 08:14 (Heparin Inj) 5,000 units Q8HR SQ 06/11/16 14:00 11/06/16 05:35 (Baciguent Oint) 1 applic BID TOP 07/20/16 10:00 11/05/16 23:10 (Protonix Inj) 40 mg Q12H IV PUSH 07/30/16 10:15 11/05/16 23:07 ([place] Angel [place]) 1 spray BID NASAL 08/01/16 21:00 11/05/16 23:12 (Cardizem) 30 mg QID PEG 08/16/16 13:00 11/05/16 16:51 (Trimox) 500 mg Q8HR PO 08/22/16 22:00 11/06/16 05:35 (Colace Liq) 100 mg BID PO 08/30/16 21:00 11/05/16 23:08 (Lactulose Liq) 30 ml DAILY PO 09/02/16 15:30 11/05/16 08:14 (Tears Naturale Opth Soln) 1 drop BID EACH EYE 09/05/16 21:00 11/05/16 23:12 (Lopressor) 50 mg BID PO 09/13/16 21:00 11/05/16 23:09 (Morphine Inj) 1 mg Q24H PRN IV PUSH 09/17/16 14:30 10/22/16 02:00 (Nizoral 2% Cream) 1 applic Q12HR TOPICAL 09/24/16 21:00 11/04/16 21:00 (Senna Liq) 8.8 mg DAILY@1600 PO 09/25/16 17:00 11/05/16 16:51 (Fleets Enema (Adult)) 133 ml UNSCH PRN [place] 09/25/16 16:00 (Dulcolax Supp) 10 mg DAILY PRN RECTAL 09/26/16 15:30 10/20/16 12:53 (Milk Of Magnesia Liq) 30 ml DAILY PRN PO 10/13/16 14:30 10/20/16 12:54 ([place] 5-325 Mg) 1 tab Q6H PRN PO 10/13/16 18:45 11/05/16 23:08 (Flexeril) 5 mg HS PRN PO 10/14/16 14:15 10/22/16 21:17 A/P Assessment and Plan 1. 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 Tracks with his eyes. Continue Keppra for seizure prophylaxis. PT/OT signed off as patient is unable to participate. -Need placement. Difficult. Appreciate case management assistance. 2. Clogged PEG tube on 10/14 and 10/23 status post PEG tube change 3. Chronic respiratory failure -Secondary to CVA. Status post tracheostomy. Continue pulmonary toilet and bronchodilators as needed. Continue trach care, suctioning. Levsin as needed. -Pulmonary currently following . Appreciate assistance. 4. Atrial fibrillation -Continue rate control with Cardizem and metoprolol. Echocardiogram in November 2015 shows preserved ejection fraction. Coumadin discontinued secondary to bleeding. Rate controlled. Continue aspirin and prophylactic heparin dose. 5. History of non-Hodgkin's lymphoma - Status post brain biopsy on December 13 by neurosurgery. Pathology consistent with acute infarct without evidence of lymphoma. Oncology has signed Off 6. Diabetes mellitus -Hemoglobin A1c is 7. Continue Levemir. Monitor Accu-Cheks and cover with sliding scale insulin. Overall blood sugar continues well controlled. 7. Decubitus ulcer stage IV -Continue wound care, twice-daily dressing changes. Wound care recommendations. Continue pressure relief measures including turning and positioning. Patient's family has declined a diverting colostomy. Previous Wound culture growing Klebsiella. on Augmentin. Status post wide excision of sacral skin and biopsy of the cavity lining with debridement on 07/22/16. ID specialist recommended to continue on Amoxicillin and Cefepime for two months will be until the end of September or first days of October. 8. Gastric ulcer, reflux esophagitis - EGD on 07/30/16 showed gastric ulcers. Appreciate GI recommendations. Continue PPI. H&H stable. 9. UTI pseudomonas aeruginosa treated with abx - Resolved. - Repeat Ucx 08/28/16 negative. 10. Constipation: -Having regular bowel movements. -on lactulose. Monitor. 11. Anemia Hemoglobin 9.4 stable DVT prophylaxis on Heparin Discussed with his Mother in the room. No changes to anterior assessment. Discharge Planning dc planning to SNF-no funding- SSI pending. Arnulfo Us MD Nov 06, 2016 08:30
[2016-11-06] MEDS: PANTOPRAZOLE SODIUM 40 MG VIAL IV PUSH SCH ×2 (10:07→22:14)
[2016-11-06] MEDS: BACITRACIN TOP OINT 15 GM TUBE TOP SCH ×2 (16:14→22:15)
[2016-11-06] MEDS: KETOCONAZOLE 2% CREAM 15 GM TOPICAL SCH ×2 (16:14→21:00)
[2016-11-06] MEDS: SENNOSIDES SYRUP 8.8 MG/5 ML CUP PO SCH (16:14)
[2016-11-06] MEDS: NYSTATIN 100,000 U/GM PWD 15 GM BTL TOPICAL SCH ×2 (16:14→22:14)
[2016-11-06] MEDS: PARoxetine HCL SUSP 20 MG/10 ML UDC PEG SCH (18:43)
--- NOTE | 2016-11-06 20:06 | HHI.PR ---
Subjective Remarks opens eyes on o2 , o2 SAT 95 ON T PIECE NO DITRESS TRACH. [place] Objective Vital Signs Date Time Temp Pulse Resp B/P Pulse Ox O2 Delivery O2 Flow Rate FiO2 11/06/16 18:15 100 T-piece 6.00 28 11/06/16 16:00 95.8 84 19 108/68 100 11/06/16 12:00 95.5 79 18 96/59 100 11/06/16 10:36 81 11/06/16 09:00 98 T-piece 6.00 28 11/06/16 09:00 98 T-piece 6.00 28 11/06/16 08:00 96.1 82 20 121/78 97 11/06/16 04:00 96.1 82 20 116/71 100 11/06/16 02:41 84 11/06/16 00:08 19 11/06/16 00:00 97.7 100 20 118/79 99 11/05/16 21:03 T-Piece 28 I/O 11/05/16 11/05/16 11/05/16 11/06/16 11/06/16 11/06/16 07:00 15:00 23:00 07:00 15:00 23:00 Intake Total 623 ml 710 ml Output Total 2100 ml 700 ml 650 ml 850 ml Balance -2100 ml -700 ml 623 ml 60 ml -850 ml Tube Feeding 623 ml 710 ml Output Urine Total 2100 ml 700 ml 650 ml 850 ml # Bowel Movements 1 1 2 Procedures 01/02/16 PEG placement 01/02/16 tracheostomy 07/22/2016 Wide excision of sacral skin wound, biopsy of the cavity lining and debridement. PEG tube replacement 07/29/16 Objective Remarks GENERAL: SKIN: Warm and dry. HEAD: Atraumatic. Normocephalic. EYES: Pupils equal and round. No scleral icterus. No injection or drainage. ENT: No nasal bleeding or discharge. Mucous membranes pink and moist. NECK: Trachea midline. No JVD. TRACH. [place] CARDIOVASCULAR: Regular rate and rhythm. RESPIRATORY: No accessory muscle use. Clear to auscultation. Breath sounds equal bilaterally. GASTROINTESTINAL: Abdomen soft, non-tender, nondistended. Hepatic and splenic margins not palpable. MUSCULOSKELETAL: Extremities without clubbing, cyanosis, or edema. No obvious deformities. NEUROLOGICAL: Awake and alert. No obvious cranial nerve deficits. Motor grossly within normal limits. Five out of 5 muscle strength in the arms and legs. Normal speech. PSYCHIATRIC: Appropriate mood and affect; insight and judgment normal. Assessment and Plan Assessment and Plan impression respiratory failure CVA S/P TRACHEOSTOMY PLAN O2 NEEDED PULM. TOFLORENCIAT Brandon Taylor MD Nov 06, 2016 20:06
[2016-11-06] MEDS: INSULIN DETEMIR 100 UNITS/ML VIAL SQ SCH (22:14)
[2016-11-07] VITALS (11 sets, daily range): BP systolic 108–148; BP diastolic 66–80; PULSE 79–86; RESP 16–24; TEMP 96.6–97.2; O2SAT 91–100
[2016-11-07] MEDS: FREE WATER TUBE SCH ×7 (04:00→23:21)
[2016-11-07] MEDS: ACETIC ACID 0.25% SOLN 1000 ML IRR BTL IRRIGATION SCH ×3 (05:59→23:03)
[2016-11-07] MEDS: AMOXICILLIN (TRIHYDRATE) 500 MG CAP PO SCH ×3 (05:59→23:01)
[2016-11-07] MEDS: HEPARIN SODIUM - SQ 10,000 UNITS/ML VIAL SQ SCH ×3 (05:59→23:12)
[2016-11-07] MEDS: INSULIN ASPART SUPPLEMENTAL SCALE SQ SCH (06:34)
--- NOTE | 2016-11-07 08:24 | HHI.PR ---
Subjective Remarks This is a pleasant 60 y/o male with Paroxysmal Atrial Fibrillation, Hypertension , Stage IIIa Non Hodgkin Lymphoma, status post Chemotherapy with Rituxan, CHOP 2014, who was brought in to ER with AMS CT scan of the brain showed no focal or acute intracranial Hemorrhage, he had recent Brain Biopsy he became obtunded in ER and was Intubated, Transferred initially to ICU, ID specialist started on 08/23/16 with diagnosis of Sacral Ulcer and Pneumonia Amoxicillin and Cefepime for the next two months. so he has all September and perhaps first days of October with antibiotics. 11/06: Patient stable in his bedroom, in the presence of his mother. 11/07: Seen in his bedroom in the presence of Caregiver, his Mother and his , no changes to anterior assessment. asked the nurse Miss Paulino no new issues. Objective Vital Signs Date Time Temp Pulse Resp B/P Pulse Ox O2 Delivery O2 Flow Rate FiO2 11/07/16 04:00 96.8 83 18 148/78 97 11/07/16 00:00 96.8 82 20 121/80 96 11/06/16 20:00 97.1 91 20 125/72 99 11/06/16 20:00 89 11/06/16 18:15 100 T-piece 6.00 28 11/06/16 16:00 95.8 84 19 108/68 100 11/06/16 12:00 95.5 79 18 96/59 100 11/06/16 10:36 81 11/06/16 09:00 98 T-piece 6.00 28 11/06/16 09:00 98 T-piece 6.00 28 I/O 11/06/16 11/06/16 11/06/16 11/07/16 11/07/16 11/07/16 07:00 15:00 23:00 07:00 15:00 23:00 Intake Total 710 ml Output Total 650 ml 850 ml 800 ml Balance 60 ml -850 ml -800 ml Tube Feeding 710 ml Output Urine Total 650 ml 850 ml 800 ml # Bowel Movements 2 1 Imaging Last Impressions Tube Change 10/23/16 0000 Signed Impressions: Service Date/Time: Sunday, October 23, 2016 16:34 - CONCLUSION: Uncomplicated gastrojejunostomy tube exchange as above. Existing tube was patent with some luminal narrowing. The balloon port was damaged and leaking, however. Bobby Gray MD Chest X-Ray 10/18/16 0000 Signed Impressions: Service Date/Time: Tuesday, October 18, 2016 19:17 - CONCLUSION: 1. Minimal right perihilar streakiness consistent with probable atelectasis. 2. Elevation of the right hemidiaphragm. 3. Tracheostomy tube in good position above the geno. Eduardo Valenzuela MD Abdomen X-Ray 08/31/16 0000 Signed Impressions: Service Date/Time: Wednesday, August 31, 2016 16:36 - CONCLUSION: 1. No acute findings. Mild constipation. Durga Dotson MD Abdomen/Pelvis CT 04/12/16 0000 Signed Impressions: Service Date/Time: Tuesday, April 12, 2016 20:52 - CONCLUSION: 1. 6.4 cm necrotic mass or abscess in the soft tissues posteriorly just below the sacrum associated with some bony destructive change of the lower most sacrum and coccyx with inflammatory changes extending into the ischiorectal fossa and into the presacral retroperitoneum predominantly on the left side. There is associated fairly marked mural thickening of the anal verge and rectum. 2. There is gastrostomy and Arevalo catheter present. Stable abdominal aortic aneurysm. Durga Dotson MD Head Magnetic Resonance Angiography 03/05/16 0000 Signed Impressions: Service Date/Time: Saturday, March 05, 2016 09:26 - CONCLUSION: Persistent high-grade subtotal occlusive stenotic lesions in the distal right vertebral artery and proximal basilar artery with significant improvement in flow and recanalization following initial presentation of thrombosis. Stable interstitial circulation without significant stenosis. 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 There is decreasing restricted diffusion and increasing loss of volume characteristic of a subacute to chronic infarct. No evidence of acute infarct, acute hemorrhage mass or edema. Ernesto Kulkarni MD Head CT 01/16/16 0000 Signed Impressions: Service Date/Time: Saturday, January 16, 2016 10:51 - CONCLUSION: No extensive low density in the brainstem colin more prominent in the right the left extending into the right middle cerebellar peduncle consistent with brainstem infarct nonhemorrhagic acute Wellington West MD Neck Magnetic Resonance Angiography 12/22/15 1445 Signed Impressions: Service Date/Time: Tuesday, December 22, 2015 09:22 - CONCLUSION: Variant origin of the left vertebral artery from the aortic arch. No evidence of carotid stenosis. Glen Zamora MD Head/Brain Mag Res Venography 12/22/15 0000 Signed Impressions: Service Date/Time: Tuesday, December 22, 2015 09:22 - CONCLUSION: Normal MRV. Jonel Jones Jr., MD Procedures 01/02/16 PEG placement 01/02/16 tracheostomy 07/22/2016 Wide excision of sacral skin wound, biopsy of the cavity lining and debridement. PEG tube replacement 07/29/16 Other Results No new laboratory Objective Remarks GENERAL: on Trach- in no apparent distress. CARDIOVASCULAR: Regular rate and regular rhythm without murmurs, gallops, or rubs. RESPIRATORY: Clear to auscultation. Breath sounds equal bilaterally. No wheezes , rales, or rhonchi. GASTROINTESTINAL: Abdomen soft, non-tender,distended. hypoactive bowel sounds-PEG in place MUSCULOSKELETAL: Extremities without clubbing, cyanosis, or edema. NEURO: awake Medications and IVs Current Medications Medications (Trade) Dose Ordered Sig/Junior Route Start Time Stop Time Status Last Admin (NS Flush) 2 ml UNSCH PRN IVF 12/21/15 06:00 09/28/16 21:18 (Keppra Liq) 500 mg Q12HR TUBE 12/27/15 21:00 11/06/16 22:14 (Tylenol 650 Mg/ 20 ml Liq) 650 mg Q6H PRN TUBE 12/30/15 15:15 10/25/16 15:13 (Mycostatin Powder) 1 applic Q12HR TOPICAL 01/08/16 21:00 11/06/16 22:14 (Pill Splitter) 1 ea UNSCH PRN OTHER 01/14/16 08:30 (Acetic Acid 0.25% Irr Btl) 10 ml Q8HR IRRIGATION 02/05/16 16:00 11/07/16 05:59 (Ativan Inj) 0.5 mg Q4H PRN IV PUSH 03/07/16 23:00 (Paxil Liq) 20 mg DAILY@1900 PEG 03/12/16 19:00 11/06/16 18:43 (Levemir Inj) 35 units HS SQ 03/24/16 21:00 11/06/16 22:14 (Levsin) 0.25 mg Q4H PRN G-TUBE 04/11/16 10:30 08/31/16 05:02 (Zofran Inj) 4 mg Q6HR PRN IV PUSH 04/14/16 19:45 08/10/16 10:16 (Free Water) 200 ml Q4HR TUBE 04/16/16 12:00 11/07/16 04:00 (D50w (Vial) Inj) 25 ml UNSCH PRN IV 04/20/16 12:00 (Glucagon Inj) 1 mg UNSCH PRN IM/SQ 04/20/16 12:00 (K-Lyte Cl Eff) 25 meq DAILY TUBE 05/28/16 09:00 11/06/16 08:19 (Aspirin) 325 mg DAILY TUBE 05/27/16 11:40 11/06/16 08:18 (Heparin Inj) 5,000 units Q8HR SQ 06/11/16 14:00 11/07/16 05:59 (Baciguent Oint) 1 applic BID TOP 07/20/16 10:00 11/06/16 22:15 (Protonix Inj) 40 mg Q12H IV PUSH 07/30/16 10:15 11/06/16 22:14 ([place]) 1 spray BID NASAL 08/01/16 21:00 11/06/16 21:00 (Cardizem) 30 mg QID PEG 08/16/16 13:00 11/06/16 22:14 (Trimox) 500 mg Q8HR PO 08/22/16 22:00 11/07/16 05:59 (Colace Liq) 100 mg BID PO 08/30/16 21:00 11/06/16 22:13 (Lactulose Liq) 30 ml DAILY PO 09/02/16 15:30 11/06/16 08:19 (Tears Naturale Opth Soln) 1 drop BID EACH EYE 09/05/16 21:00 11/06/16 22:15 (Lopressor) 50 mg BID PO 09/13/16 21:00 11/06/16 22:14 (Morphine Inj) 1 mg Q24H PRN IV PUSH 09/17/16 14:30 10/22/16 02:00 (Nizoral 2% Cream) 1 applic Q12HR TOPICAL 09/24/16 21:00 11/06/16 16:14 (Senna Liq) 8.8 mg DAILY@1600 PO 09/25/16 17:00 11/06/16 16:14 (Fleets Enema (Adult)) 133 ml UNSCH PRN [place] 09/25/16 16:00 (Dulcolax Supp) 10 mg DAILY PRN RECTAL 09/26/16 15:30 10/20/16 12:53 (Milk Of Magnesia Liq) 30 ml DAILY PRN PO 10/13/16 14:30 10/20/16 12:54 ([place] 5-325 Mg) 1 tab Q6H PRN PO 10/13/16 18:45 11/05/16 23:08 (Flexeril) 5 mg HS PRN PO 10/14/16 14:15 10/22/16 21:17 A/P Assessment and Plan 1. 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 Tracks with his eyes. Continue Keppra for seizure prophylaxis. PT/OT signed off as patient is unable to participate. -Need placement. Difficult. Appreciate case management assistance. 2. Clogged PEG tube on 10/14 and 10/23 status post PEG tube change 3. Chronic respiratory failure -Secondary to CVA. Status post tracheostomy. Continue pulmonary toilet and bronchodilators as needed. Continue trach care, suctioning. Levsin as needed. -Pulmonary currently following . Appreciate assistance. 4. Atrial fibrillation -Continue rate control with Cardizem and metoprolol. Echocardiogram in November 2015 shows preserved ejection fraction. Coumadin discontinued secondary to bleeding. Rate controlled. Continue aspirin and prophylactic heparin dose. 5. History of non-Hodgkin's lymphoma - Status post brain biopsy on December 13 by neurosurgery. Pathology consistent with acute infarct without evidence of lymphoma. Oncology has signed Off 6. Diabetes mellitus -Hemoglobin A1c is 7. Continue Levemir. Monitor Accu-Cheks and cover with sliding scale insulin. Overall blood sugar continues well controlled. 7. Decubitus ulcer stage IV -Continue wound care, twice-daily dressing changes. Wound care recommendations. Continue pressure relief measures including turning and positioning. Patient's family has declined a diverting colostomy. Previous Wound culture growing Klebsiella. on Augmentin. Status post wide excision of sacral skin and biopsy of the cavity lining with debridement on 07/22/16. ID specialist recommended to continue on Amoxicillin and Cefepime for two months will be until the end of September or first days of October. 8. Gastric ulcer, reflux esophagitis - EGD on 07/30/16 showed gastric ulcers. Appreciate GI recommendations. Continue PPI. H&H stable. 9. UTI pseudomonas aeruginosa treated with abx - Resolved. - Repeat Ucx 08/28/16 negative. 10. Constipation: -Having regular bowel movements. -on lactulose. Monitor. 11. Anemia Hemoglobin 9.4 stable DVT prophylaxis on Heparin Discussed with his Mother in the room. No changes to anterior assessment. Discharge Planning dc planning to SNF-no funding- SSI pending. Arnulfo Us MD Nov 07, 2016 08:24
--- NOTE | 2016-11-07 08:47 | HHI.PR ---
Subjective Remarks opens eyes on o2 , o2 SAT 95 ON T PIECE NO DITRESS TRACH. [place] Objective Vital Signs Date Time Temp Pulse Resp B/P Pulse Ox O2 Delivery O2 Flow Rate FiO2 11/07/16 04:00 96.8 83 18 148/78 97 11/07/16 00:00 96.8 82 20 121/80 96 11/06/16 20:00 97.1 91 20 125/72 99 11/06/16 20:00 89 11/06/16 18:15 100 T-piece 6.00 28 11/06/16 16:00 95.8 84 19 108/68 100 11/06/16 12:00 95.5 79 18 96/59 100 11/06/16 10:36 81 11/06/16 09:00 98 T-piece 6.00 28 11/06/16 09:00 98 T-piece 6.00 28 I/O 11/06/16 11/06/16 11/06/16 11/07/16 11/07/16 11/07/16 07:00 15:00 23:00 07:00 15:00 23:00 Intake Total 710 ml 975 ml Output Total 650 ml 850 ml 800 ml Balance 60 ml -850 ml 175 ml Tube Feeding 710 ml 375 ml Other 600 ml Output Urine Total 650 ml 850 ml 800 ml # Bowel Movements 2 1 Procedures 01/02/16 PEG placement 01/02/16 tracheostomy 07/22/2016 Wide excision of sacral skin wound, biopsy of the cavity lining and debridement. PEG tube replacement 07/29/16 Objective Remarks GENERAL: SKIN: Warm and dry. HEAD: Atraumatic. Normocephalic. EYES: Pupils equal and round. No scleral icterus. No injection or drainage. ENT: No nasal bleeding or discharge. Mucous membranes pink and moist. NECK: Trachea midline. No JVD. TRACH. [place] CARDIOVASCULAR: Regular rate and rhythm. RESPIRATORY: No accessory muscle use. Clear to auscultation. Breath sounds equal bilaterally. GASTROINTESTINAL: Abdomen soft, non-tender, nondistended. Hepatic and splenic margins not palpable. MUSCULOSKELETAL: Extremities without clubbing, cyanosis, or edema. No obvious deformities. NEUROLOGICAL: Awake and alert. No obvious cranial nerve deficits. Motor grossly within normal limits. Five out of 5 muscle strength in the arms and legs. Normal speech. PSYCHIATRIC: Appropriate mood and affect; insight and judgment normal. Assessment and Plan Assessment and Plan impression respiratory failure CVA S/P TRACHEOSTOMY PLAN O2 NEEDED PULM. TOILET Brandon Taylor MD Nov 07, 2016 08:47
[2016-11-07] MEDS: SODIUM CHLORIDE 0.65% NASAL SPRAY 45 ML BTL NASAL SCH ×2 (09:50→23:04)
[2016-11-07] MEDS: POTASSIUM CHLORIDE 25 MEQ EFFERVESCENT TAB TUBE SCH (09:52)
[2016-11-07] MEDS: METOPROLOL TARTRATE 50 MG TAB PO SCH ×2 (09:52→23:11)
[2016-11-07] MEDS: ASPIRIN 325 MG TAB TUBE SCH (09:52)
[2016-11-07] MEDS: DILTIAZEM HCL 30 MG TAB PEG SCH ×4 (09:53→23:11)
[2016-11-07] MEDS: LACTULOSE SYRUP 20 GM/30 ML CUP PO SCH (09:53)
[2016-11-07] MEDS: DOCUSATE SODIUM 100 MG/10 ML UDC PO SCH ×2 (09:53→23:01)
[2016-11-07] MEDS: BACITRACIN TOP OINT 15 GM TUBE TOP SCH ×2 (09:56→23:03)
[2016-11-07] MEDS: ARTIFICIAL TEARS OPTH SOLN 15 ML BTL EACH EYE SCH ×2 (09:56→23:05)
[2016-11-07] MEDS: NYSTATIN 100,000 U/GM PWD 15 GM BTL TOPICAL SCH ×2 (09:57→23:03)
[2016-11-07] MEDS: KETOCONAZOLE 2% CREAM 15 GM TOPICAL SCH ×2 (09:58→21:00)
[2016-11-07] MEDS: PANTOPRAZOLE SODIUM 40 MG VIAL IV PUSH SCH ×2 (09:59→23:01)
[2016-11-07] MEDS: levETIRAcetam 500 MG/5 ML UDC TUBE SCH ×2 (09:59→23:01)
[2016-11-07] MEDS: ACETAMINOPHEN/HYDROcodone 325 MG/5 MG TAB PO PRN (14:03)
[2016-11-07] MEDS: PARoxetine HCL SUSP 20 MG/10 ML UDC PEG SCH (17:52)
[2016-11-07] MEDS: SENNOSIDES SYRUP 8.8 MG/5 ML CUP PO SCH (17:52)
[2016-11-07] MEDS: INSULIN DETEMIR 100 UNITS/ML VIAL SQ SCH (23:01)
[2016-11-08] VITALS (8 sets, daily range): BP systolic 95–122; BP diastolic 62–75; PULSE 82–94; RESP 20–22; TEMP 96.2–98.7; O2SAT 97–99
[2016-11-08] MEDS: FREE WATER TUBE SCH ×5 (04:20→21:54)
[2016-11-08] MEDS: AMOXICILLIN (TRIHYDRATE) 500 MG CAP PO SCH ×3 (06:35→21:40)
[2016-11-08] MEDS: ACETIC ACID 0.25% SOLN 1000 ML IRR BTL IRRIGATION SCH ×3 (06:35→21:56)
[2016-11-08] MEDS: HEPARIN SODIUM - SQ 10,000 UNITS/ML VIAL SQ SCH ×3 (06:35→21:40)
[2016-11-08] MEDS: INSULIN ASPART SUPPLEMENTAL SCALE SQ SCH (06:36)
[2016-11-08] MEDS: SODIUM CHLORIDE 0.65% NASAL SPRAY 45 ML BTL NASAL SCH ×2 (09:00→21:53)
[2016-11-08] MEDS: METOPROLOL TARTRATE 50 MG TAB PO SCH ×2 (09:00→21:44)
[2016-11-08] MEDS: KETOCONAZOLE 2% CREAM 15 GM TOPICAL SCH ×2 (09:00→21:00)
--- NOTE | 2016-11-08 09:16 | HHI.PR ---
Subjective Remarks opens eyes on o2 , o2 SAT 95 ON T PIECE NO DITRESS TRACH. [place] Objective Vital Signs Date Time Temp Pulse Resp B/P Pulse Ox O2 Delivery O2 Flow Rate FiO2 11/08/16 04:00 98.7 86 22 119/74 98 11/08/16 00:00 97.4 94 20 122/74 97 11/07/16 20:28 98 T-piece 28 11/07/16 20:27 98 T-piece 28.00 11/07/16 20:00 97.2 81 24 121/74 98 11/07/16 18:11 98 T-piece 6.00 28 11/07/16 16:00 96.7 79 16 108/66 98 11/07/16 15:10 18 11/07/16 12:00 97.1 82 16 123/75 100 11/07/16 10:25 95 T-piece 28 11/07/16 10:25 98 T-piece 28 I/O 11/07/16 11/07/16 11/07/16 11/08/16 11/08/16 11/08/16 07:00 15:00 23:00 07:00 15:00 23:00 Intake Total 975 ml 517 ml Output Total 800 ml 1000 ml 400 ml 400 ml Balance 175 ml -483 ml -400 ml -400 ml Intake Oral 0 ml Tube Feeding 375 ml 517 ml Other 600 ml Output Urine Total 800 ml 1000 ml 400 ml 400 ml Bladder Scan Volume Amount 392 ml # Bowel Movements 1 1 Procedures 01/02/16 PEG placement 01/02/16 tracheostomy 07/22/2016 Wide excision of sacral skin wound, biopsy of the cavity lining and debridement. PEG tube replacement 07/29/16 Objective Remarks GENERAL: SKIN: Warm and dry. HEAD: Atraumatic. Normocephalic. EYES: Pupils equal and round. No scleral icterus. No injection or drainage. ENT: No nasal bleeding or discharge. Mucous membranes pink and moist. NECK: Trachea midline. No JVD. TRACH. [place] CARDIOVASCULAR: Regular rate and rhythm. RESPIRATORY: No accessory muscle use. Clear to auscultation. Breath sounds equal bilaterally. GASTROINTESTINAL: Abdomen soft, non-tender, nondistended. Hepatic and splenic margins not palpable. MUSCULOSKELETAL: Extremities without clubbing, cyanosis, or edema. No obvious deformities. NEUROLOGICAL: Awake and alert. No obvious cranial nerve deficits. Motor grossly within normal limits. Five out of 5 muscle strength in the arms and legs. Normal speech. PSYCHIATRIC: Appropriate mood and affect; insight and judgment normal. Assessment and Plan Assessment and Plan impression respiratory failure CVA S/P TRACHEOSTOMY PLAN O2 NEEDED PULM. TOFLORENCIAT Brandon Taylor MD Nov 08, 2016 09:16
[2016-11-08] MEDS: DOCUSATE SODIUM 100 MG/10 ML UDC PO SCH ×2 (09:55→21:40)
[2016-11-08] MEDS: POTASSIUM CHLORIDE 25 MEQ EFFERVESCENT TAB TUBE SCH (09:55)
[2016-11-08] MEDS: ASPIRIN 325 MG TAB TUBE SCH (09:56)
--- NOTE | 2016-11-08 09:56 | HHI.PR ---
Subjective Remarks This is a pleasant 60 y/o male with Paroxysmal Atrial Fibrillation, Hypertension , Stage IIIa Non Hodgkin Lymphoma, status post Chemotherapy with Rituxan, CHOP 2014, who was brought in to ER with AMS CT scan of the brain showed no focal or acute intracranial Hemorrhage, he had recent Brain Biopsy he became obtunded in ER and was Intubated, Transferred initially to ICU, ID specialist started on 08/23/16 with diagnosis of Sacral Ulcer and Pneumonia Amoxicillin and Cefepime for the next two months. so he has all September and perhaps first days of October with antibiotics. 11/07: Seen in his bedroom in the presence of his Ex and his Mother, discussed with nurse Miss Alejandra, asking to change the tube feedings to the last Dietitian evaluation for Glucerna 1.5 at 50 ml per hour. Objective Vital Signs Date Time Temp Pulse Resp B/P Pulse Ox O2 Delivery O2 Flow Rate FiO2 11/08/16 04:00 98.7 86 22 119/74 98 11/08/16 00:00 97.4 94 20 122/74 97 11/07/16 20:28 98 T-piece 28 11/07/16 20:27 98 T-piece 28.00 11/07/16 20:00 97.2 81 24 121/74 98 11/07/16 18:11 98 T-piece 6.00 28 11/07/16 16:00 96.7 79 16 108/66 98 11/07/16 15:10 18 11/07/16 12:00 97.1 82 16 123/75 100 11/07/16 10:25 95 T-piece 28 11/07/16 10:25 98 T-piece 28 I/O 11/07/16 11/07/16 11/07/16 11/08/16 11/08/16 11/08/16 07:00 15:00 23:00 07:00 15:00 23:00 Intake Total 975 ml 517 ml Output Total 800 ml 1000 ml 400 ml 400 ml Balance 175 ml -483 ml -400 ml -400 ml Intake Oral 0 ml Tube Feeding 375 ml 517 ml Other 600 ml Output Urine Total 800 ml 1000 ml 400 ml 400 ml Bladder Scan Volume Amount 392 ml # Bowel Movements 1 1 Imaging Last Impressions Tube Change 10/23/16 0000 Signed Impressions: Service Date/Time: Sunday, October 23, 2016 16:34 - CONCLUSION: Uncomplicated gastrojejunostomy tube exchange as above. Existing tube was patent with some luminal narrowing. The balloon port was damaged and leaking, however. Bobby Gray MD Chest X-Ray 10/18/16 0000 Signed Impressions: Service Date/Time: Tuesday, October 18, 2016 19:17 - CONCLUSION: 1. Minimal right perihilar streakiness consistent with probable atelectasis. 2. Elevation of the right hemidiaphragm. 3. Tracheostomy tube in good position above the geno. Eduardo Valenzuela MD Abdomen X-Ray 08/31/16 0000 Signed Impressions: Service Date/Time: Wednesday, August 31, 2016 16:36 - CONCLUSION: 1. No acute findings. Mild constipation. Durga Dotson MD Abdomen/Pelvis CT 04/12/16 0000 Signed Impressions: Service Date/Time: Tuesday, April 12, 2016 20:52 - CONCLUSION: 1. 6.4 cm necrotic mass or abscess in the soft tissues posteriorly just below the sacrum associated with some bony destructive change of the lower most sacrum and coccyx with inflammatory changes extending into the ischiorectal fossa and into the presacral retroperitoneum predominantly on the left side. There is associated fairly marked mural thickening of the anal verge and rectum. 2. There is gastrostomy and Arevalo catheter present. Stable abdominal aortic aneurysm. Durga Dotson MD Head Magnetic Resonance Angiography 03/05/16 0000 Signed Impressions: Service Date/Time: Saturday, March 05, 2016 09:26 - CONCLUSION: Persistent high-grade subtotal occlusive stenotic lesions in the distal right vertebral artery and proximal basilar artery with significant improvement in flow and recanalization following initial presentation of thrombosis. Stable interstitial circulation without significant stenosis. 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 There is decreasing restricted diffusion and increasing loss of volume characteristic of a subacute to chronic infarct. No evidence of acute infarct, acute hemorrhage mass or edema. Ernesto Kulkarni MD Head CT 01/16/16 0000 Signed Impressions: Service Date/Time: Saturday, January 16, 2016 10:51 - CONCLUSION: No extensive low density in the brainstem colin more prominent in the right the left extending into the right middle cerebellar peduncle consistent with brainstem infarct nonhemorrhagic acute Wellington West MD Neck Magnetic Resonance Angiography 12/22/15 1445 Signed Impressions: Service Date/Time: Tuesday, December 22, 2015 09:22 - CONCLUSION: Variant origin of the left vertebral artery from the aortic arch. No evidence of carotid stenosis. Glen Zamora MD Head/Brain Mag Res Venography 12/22/15 0000 Signed Impressions: Service Date/Time: Tuesday, December 22, 2015 09:22 - CONCLUSION: Normal MRV. Jonel Jones Jr., MD Procedures 01/02/16 PEG placement 01/02/16 tracheostomy 07/22/2016 Wide excision of sacral skin wound, biopsy of the cavity lining and debridement. PEG tube replacement 07/29/16 Other Results No new laboratory Objective Remarks GENERAL: on Trach- in no apparent distress. CARDIOVASCULAR: Regular rate and regular rhythm without murmurs, gallops, or rubs. RESPIRATORY: Clear to auscultation. Breath sounds equal bilaterally. No wheezes , rales, or rhonchi. GASTROINTESTINAL: Abdomen soft, non-tender,distended. hypoactive bowel sounds-PEG in place MUSCULOSKELETAL: Extremities without clubbing, cyanosis, or edema. NEURO: awake Medications and IVs Current Medications Medications (Trade) Dose Ordered Sig/Junior Route Start Time Stop Time Status Last Admin (NS Flush) 2 ml UNSCH PRN IVF 12/21/15 06:00 09/28/16 21:18 (Keppra Liq) 500 mg Q12HR TUBE 12/27/15 21:00 11/07/16 23:01 (Tylenol 650 Mg/ 20 ml Liq) 650 mg Q6H PRN TUBE 12/30/15 15:15 10/25/16 15:13 (Mycostatin Powder) 1 applic Q12HR TOPICAL 01/08/16 21:00 11/07/16 23:03 (Pill Splitter) 1 ea UNSCH PRN OTHER 01/14/16 08:30 (Acetic Acid 0.25% Irr Btl) 10 ml Q8HR IRRIGATION 02/05/16 16:00 11/08/16 06:35 (Ativan Inj) 0.5 mg Q4H PRN IV PUSH 03/07/16 23:00 (Paxil Liq) 20 mg DAILY@1900 PEG 03/12/16 19:00 11/07/16 17:52 (Levemir Inj) 35 units HS SQ 03/24/16 21:00 11/07/16 23:01 (Levsin) 0.25 mg Q4H PRN G-TUBE 04/11/16 10:30 08/31/16 05:02 (Zofran Inj) 4 mg Q6HR PRN IV PUSH 04/14/16 19:45 08/10/16 10:16 (Free Water) 200 ml Q4HR TUBE 04/16/16 12:00 11/08/16 04:20 (D50w (Vial) Inj) 25 ml UNSCH PRN IV 04/20/16 12:00 (Glucagon Inj) 1 mg UNSCH PRN IM/SQ 04/20/16 12:00 (K-Lyte Cl Eff) 25 meq DAILY TUBE 05/28/16 09:00 11/07/16 09:52 (Aspirin) 325 mg DAILY TUBE 05/27/16 11:40 11/07/16 09:52 (Heparin Inj) 5,000 units Q8HR SQ 06/11/16 14:00 11/08/16 06:35 (Baciguent Oint) 1 applic BID TOP 07/20/16 10:00 11/07/16 23:03 (Protonix Inj) 40 mg Q12H IV PUSH 07/30/16 10:15 11/07/16 23:01 ([place]) 1 spray BID NASAL 08/01/16 21:00 11/07/16 23:04 (Cardizem) 30 mg QID PEG 08/16/16 13:00 11/07/16 23:11 (Trimox) 500 mg Q8HR PO 08/22/16 22:00 11/08/16 06:35 (Colace Liq) 100 mg BID PO 08/30/16 21:00 11/07/16 23:01 (Lactulose Liq) 30 ml DAILY PO 09/02/16 15:30 11/07/16 09:53 (Tears Naturale Opth Soln) 1 drop BID EACH EYE 09/05/16 21:00 11/07/16 23:05 (Lopressor) 50 mg BID PO 09/13/16 21:00 11/07/16 23:11 (Morphine Inj) 1 mg Q24H PRN IV PUSH 09/17/16 14:30 10/22/16 02:00 (Nizoral 2% Cream) 1 applic Q12HR TOPICAL 09/24/16 21:00 11/06/16 16:14 (Senna Liq) 8.8 mg DAILY@1600 PO 09/25/16 17:00 11/07/16 17:52 (Fleets Enema (Adult)) 133 ml UNSCH PRN [place] 09/25/16 16:00 (Dulcolax Supp) 10 mg DAILY PRN RECTAL 09/26/16 15:30 10/20/16 12:53 (Milk Of Magnesia Liq) 30 ml DAILY PRN PO 10/13/16 14:30 10/20/16 12:54 ([place] 5-325 Mg) 1 tab Q6H PRN PO 10/13/16 18:45 11/07/16 14:03 (Flexeril) 5 mg HS PRN PO 10/14/16 14:15 10/22/16 21:17 A/P Assessment and Plan 1. 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 Tracks with his eyes. Continue Keppra for seizure prophylaxis. PT/OT signed off as patient is unable to participate. -Need placement. Difficult. Appreciate case management assistance. 2. Clogged PEG tube on 10/14 and 10/23 status post PEG tube change, tube feedings to Glucerna 1.5 at 50 ml per hour. 3. Chronic respiratory failure -Secondary to CVA. Status post tracheostomy. Continue pulmonary toilet and bronchodilators as needed. Continue trach care, suctioning. Levsin as needed. -Pulmonary currently following . Appreciate assistance. 4. Atrial fibrillation -Continue rate control with Cardizem and metoprolol. Echocardiogram in November 2015 shows preserved ejection fraction. Coumadin discontinued secondary to bleeding. Rate controlled. Continue aspirin and prophylactic heparin dose. 5. History of non-Hodgkin's lymphoma - Status post brain biopsy on December 13 by neurosurgery. Pathology consistent with acute infarct without evidence of lymphoma. Oncology has signed Off 6. Diabetes mellitus -Hemoglobin A1c is 7. Continue Levemir. Monitor Accu-Cheks and cover with sliding scale insulin. Overall blood sugar continues well controlled. 7. Decubitus ulcer stage IV -Continue wound care, twice-daily dressing changes. Wound care recommendations. Continue pressure relief measures including turning and positioning. Patient's family has declined a diverting colostomy. Previous Wound culture growing Klebsiella. on Augmentin. Status post wide excision of sacral skin and biopsy of the cavity lining with debridement on 07/22/16. ID specialist recommended to continue on Amoxicillin and Cefepime for two months will be until the end of September or first days of October. 8. Gastric ulcer, reflux esophagitis - EGD on 07/30/16 showed gastric ulcers. Appreciate GI recommendations. Continue PPI. H&H stable. 9. UTI pseudomonas aeruginosa treated with abx - Resolved. - Repeat Ucx 08/28/16 negative. 10. Constipation: -Having regular bowel movements. -on lactulose. Monitor. 11. Anemia Hemoglobin 9.4 stable DVT prophylaxis on Heparin Discussed with his Mother in the room. No changes to anterior assessment. Discharge Planning dc planning to SNF-no funding- SSI pending. Arnulfo Us MD Nov 08, 2016 09:56
[2016-11-08] MEDS: DILTIAZEM HCL 30 MG TAB PEG SCH ×4 (10:00→21:00)
[2016-11-08] MEDS: LACTULOSE SYRUP 20 GM/30 ML CUP PO SCH (10:01)
[2016-11-08] MEDS: PANTOPRAZOLE SODIUM 40 MG VIAL IV PUSH SCH ×2 (10:02→21:41)
[2016-11-08] MEDS: levETIRAcetam 500 MG/5 ML UDC TUBE SCH ×2 (10:02→21:40)
[2016-11-08] MEDS: NYSTATIN 100,000 U/GM PWD 15 GM BTL TOPICAL SCH ×2 (10:03→21:53)
[2016-11-08] MEDS: BACITRACIN TOP OINT 15 GM TUBE TOP SCH ×2 (10:04→21:52)
[2016-11-08] MEDS: ARTIFICIAL TEARS OPTH SOLN 15 ML BTL EACH EYE SCH ×2 (10:04→21:53)
[2016-11-08] MEDS: SENNOSIDES SYRUP 8.8 MG/5 ML CUP PO SCH (14:42)
[2016-11-08] MEDS: PARoxetine HCL SUSP 20 MG/10 ML UDC PEG SCH (19:04)
[2016-11-08] MEDS: INSULIN DETEMIR 100 UNITS/ML VIAL SQ SCH (21:00)
[2016-11-09] VITALS (7 sets, daily range): BP systolic 105–118; BP diastolic 66–76; PULSE 80–120; RESP 19–22; TEMP 95.2–98.7; O2SAT 98–100
[2016-11-09] MEDS: FREE WATER TUBE SCH ×6 (04:00→20:36)
[2016-11-09] MEDS: HEPARIN SODIUM - SQ 10,000 UNITS/ML VIAL SQ SCH ×3 (06:42→20:34)
[2016-11-09] MEDS: AMOXICILLIN (TRIHYDRATE) 500 MG CAP PO SCH ×3 (06:42→20:36)
[2016-11-09] MEDS: INSULIN ASPART SUPPLEMENTAL SCALE SQ SCH (06:42)
[2016-11-09] MEDS: ACETIC ACID 0.25% SOLN 1000 ML IRR BTL IRRIGATION SCH ×3 (06:43→20:46)
[2016-11-09] MEDS: ASPIRIN 325 MG TAB TUBE SCH (08:37)
[2016-11-09] MEDS: POTASSIUM CHLORIDE 25 MEQ EFFERVESCENT TAB TUBE SCH (08:37)
[2016-11-09] MEDS: levETIRAcetam 500 MG/5 ML UDC TUBE SCH ×2 (08:37→20:35)
[2016-11-09] MEDS: DOCUSATE SODIUM 100 MG/10 ML UDC PO SCH ×2 (08:37→20:34)
[2016-11-09] MEDS: PANTOPRAZOLE SODIUM 40 MG VIAL IV PUSH SCH ×2 (08:37→20:35)
[2016-11-09] MEDS: LACTULOSE SYRUP 20 GM/30 ML CUP PO SCH (08:37)
[2016-11-09] MEDS: SODIUM CHLORIDE 0.65% NASAL SPRAY 45 ML BTL NASAL SCH ×2 (08:40→20:40)
[2016-11-09] MEDS: NYSTATIN 100,000 U/GM PWD 15 GM BTL TOPICAL SCH ×2 (08:40→20:40)
[2016-11-09] MEDS: DILTIAZEM HCL 30 MG TAB PEG SCH ×4 (08:40→20:36)
[2016-11-09] MEDS: BACITRACIN TOP OINT 15 GM TUBE TOP SCH ×2 (08:40→20:40)
[2016-11-09] MEDS: METOPROLOL TARTRATE 50 MG TAB PO SCH ×2 (08:40→20:36)
[2016-11-09] MEDS: ARTIFICIAL TEARS OPTH SOLN 15 ML BTL EACH EYE SCH ×2 (08:40→20:40)
[2016-11-09] MEDS: KETOCONAZOLE 2% CREAM 15 GM TOPICAL SCH ×2 (08:41→20:41)
--- NOTE | 2016-11-09 09:13 | HHI.PR ---
Subjective Remarks This is a pleasant 60 y/o male with Paroxysmal Atrial Fibrillation, Hypertension , Stage IIIa Non Hodgkin Lymphoma, status post Chemotherapy with Rituxan, [facility] 2014, who was brought in to ER with AMS CT scan of the brain showed no focal or acute intracranial Hemorrhage, he had recent Brain Biopsy he became obtunded in ER and was Intubated, Transferred initially to ICU, ID specialist started on 08/23/16 with diagnosis of Sacral Ulcer and Pneumonia Amoxicillin and Cefepime for the next two months. so he has all September and perhaps first days of October with antibiotics. 11/09: Seen in the room in the presence of his Mother and Ex , discussed with nurse Miss Morgan states is difficult to flush the J tube, may need to be evaluated by IR soon, she will let me know how continue, explained to his relatives about the tube feedings. Objective Vital Signs Date Time Temp Pulse Resp B/P Pulse Ox O2 Delivery O2 Flow Rate FiO2 11/09/16 08:00 95.2 80 20 105/76 100 11/09/16 04:00 98.7 86 22 107/67 98 11/08/16 18:05 97 T-piece 6.00 28 11/08/16 15:30 96.5 85 20 95/62 98 11/08/16 12:00 96.2 86 20 119/65 99 11/08/16 10:14 97 T-piece 28 11/08/16 10:14 97 T-piece 28 11/08/16 10:04 82 I/O 11/08/16 11/08/16 11/08/16 11/09/16 11/09/16 11/09/16 07:00 15:00 23:00 07:00 15:00 23:00 Output Total 400 ml 675 ml 550 ml Balance -400 ml -675 ml -550 ml Output Urine Total 400 ml 675 ml 550 ml Imaging Last Impressions Tube Change 10/23/16 0000 Signed Impressions: Service Date/Time: Sunday, October 23, 2016 16:34 - CONCLUSION: Uncomplicated gastrojejunostomy tube exchange as above. Existing tube was patent with some luminal narrowing. The balloon port was damaged and leaking, however. Bobby Gray MD Chest X-Ray 10/18/16 0000 Signed Impressions: Service Date/Time: Tuesday, October 18, 2016 19:17 - CONCLUSION: 1. Minimal right perihilar streakiness consistent with probable atelectasis. 2. Elevation of the right hemidiaphragm. 3. Tracheostomy tube in good position above the geno. Eduardo Valenzuela MD Abdomen X-Ray 08/31/16 0000 Signed Impressions: Service Date/Time: Wednesday, August 31, 2016 16:36 - CONCLUSION: 1. No acute findings. Mild constipation. Durga Dotson MD Abdomen/Pelvis CT 04/12/16 0000 Signed Impressions: Service Date/Time: Tuesday, April 12, 2016 20:52 - CONCLUSION: 1. 6.4 cm necrotic mass or abscess in the soft tissues posteriorly just below the sacrum associated with some bony destructive change of the lower most sacrum and coccyx with inflammatory changes extending into the ischiorectal fossa and into the presacral retroperitoneum predominantly on the left side. There is associated fairly marked mural thickening of the anal verge and rectum. 2. There is gastrostomy and Arevalo catheter present. Stable abdominal aortic aneurysm. Durga Dotson MD Head Magnetic Resonance Angiography 03/05/16 0000 Signed Impressions: Service Date/Time: Saturday, March 05, 2016 09:26 - CONCLUSION: Persistent high-grade subtotal occlusive stenotic lesions in the distal right vertebral artery and proximal basilar artery with significant improvement in flow and recanalization following initial presentation of thrombosis. Stable interstitial circulation without significant stenosis. 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 There is decreasing restricted diffusion and increasing loss of volume characteristic of a subacute to chronic infarct. No evidence of acute infarct, acute hemorrhage mass or edema. Ernesto Kulkarni MD Head CT 01/16/16 0000 Signed Impressions: Service Date/Time: Saturday, January 16, 2016 10:51 - CONCLUSION: No extensive low density in the brainstem colin more prominent in the right the left extending into the right middle cerebellar peduncle consistent with brainstem infarct nonhemorrhagic acute Wellington West MD Neck Magnetic Resonance Angiography 12/22/15 1445 Signed Impressions: Service Date/Time: Tuesday, December 22, 2015 09:22 - CONCLUSION: Variant origin of the left vertebral artery from the aortic arch. No evidence of carotid stenosis. Glen Zamora MD Head/Brain Mag Res Venography 12/22/15 0000 Signed Impressions: Service Date/Time: Tuesday, December 22, 2015 09:22 - CONCLUSION: Normal MRV. Jonel Jones Jr., MD Procedures 01/02/16 PEG placement 01/02/16 tracheostomy 07/22/2016 Wide excision of sacral skin wound, biopsy of the cavity lining and debridement. PEG tube replacement 07/29/16 Other Results No new laboratory Objective Remarks GENERAL: on Trach- in no apparent distress. CARDIOVASCULAR: Regular rate and regular rhythm without murmurs, gallops, or rubs. RESPIRATORY: Clear to auscultation. Breath sounds equal bilaterally. No wheezes , rales, or rhonchi. GASTROINTESTINAL: Abdomen soft, non-tender,distended. hypoactive bowel sounds-PEG in place MUSCULOSKELETAL: Extremities without clubbing, cyanosis, or edema. NEURO: awake Medications and IVs Current Medications Medications (Trade) Dose Ordered Sig/Junior Route Start Time Stop Time Status Last Admin (NS Flush) 2 ml UNSCH PRN IVF 12/21/15 06:00 09/28/16 21:18 (Keppra Liq) 500 mg Q12HR TUBE 12/27/15 21:00 11/09/16 08:37 (Tylenol 650 Mg/ 20 ml Liq) 650 mg Q6H PRN TUBE 12/30/15 15:15 10/25/16 15:13 (Mycostatin Powder) 1 applic Q12HR TOPICAL 01/08/16 21:00 11/09/16 08:40 (Pill Splitter) 1 ea UNSCH PRN OTHER 01/14/16 08:30 (Acetic Acid 0.25% Irr Btl) 10 ml Q8HR IRRIGATION 02/05/16 16:00 11/09/16 06:43 (Ativan Inj) 0.5 mg Q4H PRN IV PUSH 03/07/16 23:00 (Paxil Liq) 20 mg DAILY@1900 PEG 03/12/16 19:00 11/08/16 19:04 (Levemir Inj) 35 units HS SQ 03/24/16 21:00 11/08/16 21:00 (Levsin) 0.25 mg Q4H PRN G-TUBE 04/11/16 10:30 08/31/16 05:02 (Zofran Inj) 4 mg Q6HR PRN IV PUSH 04/14/16 19:45 08/10/16 10:16 (Free Water) 200 ml Q4HR TUBE 04/16/16 12:00 11/09/16 08:40 (D50w (Vial) Inj) 25 ml UNSCH PRN IV 04/20/16 12:00 (Glucagon Inj) 1 mg UNSCH PRN IM/SQ 04/20/16 12:00 (K-Lyte Cl Eff) 25 meq DAILY TUBE 05/28/16 09:00 11/09/16 08:37 (Aspirin) 325 mg DAILY TUBE 05/27/16 11:40 11/09/16 08:37 (Heparin Inj) 5,000 units Q8HR SQ 06/11/16 14:00 11/09/16 06:42 (Baciguent Oint) 1 applic BID TOP 07/20/16 10:00 11/09/16 08:40 (Protonix Inj) 40 mg Q12H IV PUSH 07/30/16 10:15 11/09/16 08:37 (Red Bud [place] Mobile) 1 spray BID NASAL 08/01/16 21:00 11/09/16 08:40 (Cardizem) 30 mg QID PEG 08/16/16 13:00 11/08/16 19:04 (Trimox) 500 mg Q8HR PO 08/22/16 22:00 11/09/16 06:42 (Colace Liq) 100 mg BID PO 08/30/16 21:00 11/09/16 08:37 (Lactulose Liq) 30 ml DAILY PO 09/02/16 15:30 11/09/16 08:37 (Tears Naturale Opth Soln) 1 drop BID EACH EYE 09/05/16 21:00 11/09/16 08:40 (Lopressor) 50 mg BID PO 09/13/16 21:00 11/09/16 08:40 (Morphine Inj) 1 mg Q24H PRN IV PUSH 09/17/16 14:30 10/22/16 02:00 (Nizoral 2% Cream) 1 applic Q12HR TOPICAL 09/24/16 21:00 11/06/16 16:14 (Senna Liq) 8.8 mg DAILY@1600 PO 09/25/16 17:00 11/08/16 14:42 (Fleets Enema (Adult)) 133 ml UNSCH PRN AL 09/25/16 16:00 (Dulcolax Supp) 10 mg DAILY PRN RECTAL 09/26/16 15:30 10/20/16 12:53 (Milk Of Magnesia Liq) 30 ml DAILY PRN PO 10/13/16 14:30 10/20/16 12:54 ([place] 5-325 Mg) 1 tab Q6H PRN PO 10/13/16 18:45 11/07/16 14:03 (Flexeril) 5 mg HS PRN PO 10/14/16 14:15 10/22/16 21: A/P Assessment and Plan 1. 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 Tracks with his eyes. Continue Keppra for seizure prophylaxis. PT/OT signed off as patient is unable to participate. -Need placement. Difficult. Appreciate case management assistance. 2. Clogged PEG tube on 10/14 and 10/23 status post PEG tube change, tube feedings to Glucerna 1.5 at 50 ml per hour. 3. Chronic respiratory failure -Secondary to CVA. Status post tracheostomy. Continue pulmonary toilet and bronchodilators as needed. Continue trach care, suctioning. Levsin as needed. -Pulmonary currently following . Appreciate assistance. 4. Atrial fibrillation -Continue rate control with Cardizem and metoprolol. Echocardiogram in November 2015 shows preserved ejection fraction. Coumadin discontinued secondary to bleeding. Rate controlled. Continue aspirin and prophylactic heparin dose. 5. History of non-Hodgkin's lymphoma - Status post brain biopsy on December 13 by neurosurgery. Pathology consistent with acute infarct without evidence of lymphoma. Oncology has signed Off 6. Diabetes mellitus -Hemoglobin A1c is 7. Continue Levemir. Monitor Accu-Cheks and cover with sliding scale insulin. Overall blood sugar continues well controlled. 7. Decubitus ulcer stage IV -Continue wound care, twice-daily dressing changes. Wound care recommendations. Continue pressure relief measures including turning and positioning. Patient's family has declined a diverting colostomy. Previous Wound culture growing Klebsiella. on Augmentin. Status post wide excision of sacral skin and biopsy of the cavity lining with debridement on 07/22/16. ID specialist recommended to continue on Amoxicillin and Cefepime for two months will be until the end of September or first days of October. 8. Gastric ulcer, reflux esophagitis - EGD on 07/30/16 showed gastric ulcers. Appreciate GI recommendations. Continue PPI. H&H stable. 9. UTI pseudomonas aeruginosa treated with abx - Resolved. - Repeat Ucx 08/28/16 negative. 10. Constipation: -Having regular bowel movements. -on lactulose. Monitor. 11. Anemia Hemoglobin 9.4 stable DVT prophylaxis on Heparin Discussed with his Mother in the room. No changes to anterior assessment. Discharge Planning dc planning to SNF-no funding- SSI pending. Arnulfo Us MD Nov 09, 2016 09:13
[2016-11-09] MEDS: SENNOSIDES SYRUP 8.8 MG/5 ML CUP PO SCH (16:01)
[2016-11-09] MEDS: PARoxetine HCL SUSP 20 MG/10 ML UDC PEG SCH (18:02)
--- NOTE | 2016-11-09 18:56 | HHI.PR ---
Subjective Remarks opens eyes on o2 , o2 SAT 95 ON T PIECE NO DITRESS TRACH. [place] Objective Vital Signs Date Time Temp Pulse Resp B/P Pulse Ox O2 Delivery O2 Flow Rate FiO2 11/09/16 16:22 96.6 85 20 118/74 100 11/09/16 12:16 98.4 120 20 115/66 100 11/09/16 08:00 95.2 80 20 105/76 100 11/09/16 04:00 98.7 86 22 107/67 98 I/O 11/08/16 11/08/16 11/08/16 11/09/16 11/09/16 11/09/16 07:00 15:00 23:00 07:00 15:00 23:00 Output Total 400 ml 675 ml 550 ml 550 ml Balance -400 ml -675 ml -550 ml -550 ml Output Urine Total 400 ml 675 ml 550 ml 550 ml # Bowel Movements 2 Procedures 01/02/16 PEG placement 01/02/16 tracheostomy 07/22/2016 Wide excision of sacral skin wound, biopsy of the cavity lining and debridement. PEG tube replacement 07/29/16 Objective Remarks GENERAL: SKIN: Warm and dry. HEAD: Atraumatic. Normocephalic. EYES: Pupils equal and round. No scleral icterus. No injection or drainage. ENT: No nasal bleeding or discharge. Mucous membranes pink and moist. NECK: Trachea midline. No JVD. TRACH. [place] CARDIOVASCULAR: Regular rate and rhythm. RESPIRATORY: No accessory muscle use. Clear to auscultation. Breath sounds equal bilaterally. GASTROINTESTINAL: Abdomen soft, non-tender, nondistended. Hepatic and splenic margins not palpable. MUSCULOSKELETAL: Extremities without clubbing, cyanosis, or edema. No obvious deformities. NEUROLOGICAL: Awake and alert. No obvious cranial nerve deficits. Motor grossly within normal limits. Five out of 5 muscle strength in the arms and legs. Normal speech. PSYCHIATRIC: Appropriate mood and affect; insight and judgment normal. Assessment and Plan Assessment and Plan impression respiratory failure CVA S/P TRACHEOSTOMY PLAN O2 NEEDED PULM. TOILET Brandon Taylor MD Nov 09, 2016 18:56
[2016-11-09] MEDS: INSULIN DETEMIR 100 UNITS/ML VIAL SQ SCH (20:35)
[2016-11-10] VITALS (9 sets, daily range): BP systolic 106–120; BP diastolic 66–76; PULSE 76–86; RESP 17–20; TEMP 95.8–98.1; O2SAT 98–100
[2016-11-10] MEDS: FREE WATER TUBE SCH ×6 (04:52→20:00)
[2016-11-10] MEDS: AMOXICILLIN (TRIHYDRATE) 500 MG CAP PO SCH ×3 (06:07→21:49)
[2016-11-10] MEDS: HEPARIN SODIUM - SQ 10,000 UNITS/ML VIAL SQ SCH ×3 (06:11→21:50)
[2016-11-10] MEDS: INSULIN ASPART SUPPLEMENTAL SCALE SQ SCH (08:13)
[2016-11-10] MEDS: ASPIRIN 325 MG TAB TUBE SCH (08:15)
[2016-11-10] MEDS: POTASSIUM CHLORIDE 25 MEQ EFFERVESCENT TAB TUBE SCH (08:15)
[2016-11-10] MEDS: levETIRAcetam 500 MG/5 ML UDC TUBE SCH ×2 (08:15→21:49)
[2016-11-10] MEDS: DOCUSATE SODIUM 100 MG/10 ML UDC PO SCH ×2 (08:15→21:51)
[2016-11-10] MEDS: BACITRACIN TOP OINT 15 GM TUBE TOP SCH ×2 (08:16→21:50)
[2016-11-10] MEDS: KETOCONAZOLE 2% CREAM 15 GM TOPICAL SCH ×2 (08:16→21:50)
[2016-11-10] MEDS: SODIUM CHLORIDE 0.65% NASAL SPRAY 45 ML BTL NASAL SCH ×2 (08:16→21:51)
[2016-11-10] MEDS: PANTOPRAZOLE SODIUM 40 MG VIAL IV PUSH SCH ×2 (08:16→21:49)
[2016-11-10] MEDS: DILTIAZEM HCL 30 MG TAB PEG SCH ×4 (08:16→21:51)
[2016-11-10] MEDS: NYSTATIN 100,000 U/GM PWD 15 GM BTL TOPICAL SCH ×2 (08:16→21:50)
[2016-11-10] MEDS: LACTULOSE SYRUP 20 GM/30 ML CUP PO SCH (08:16)
[2016-11-10] MEDS: ARTIFICIAL TEARS OPTH SOLN 15 ML BTL EACH EYE SCH ×2 (08:16→21:51)
[2016-11-10] MEDS: METOPROLOL TARTRATE 50 MG TAB PO SCH ×2 (08:16→21:49)
--- NOTE | 2016-11-10 12:21 | HHI.PR ---
Subjective Remarks opens eyes on o2 , o2 SAT 95 ON T PIECE NO DITRESS TRACH. [place] Objective Vital Signs Date Time Temp Pulse Resp B/P Pulse Ox O2 Delivery O2 Flow Rate FiO2 11/10/16 11:16 80 11/10/16 09:17 100 T-piece 28 11/10/16 09:17 100 T-piece 28 11/10/16 08:31 96.1 80 20 112/70 100 11/10/16 05:45 98.0 83 18 115/76 100 11/10/16 00:00 98.1 86 17 120/75 99 11/09/16 21:30 97.4 89 19 118/74 98 11/09/16 21:00 88 11/09/16 20:34 100 T-piece 5.00 28 11/09/16 20:34 100 T-piece 5.00 28 11/09/16 16:22 96.6 85 20 118/74 100 I/O 11/09/16 11/09/16 11/09/16 11/10/16 11/10/16 11/10/16 07:00 15:00 23:00 07:00 15:00 23:00 Intake Total 200 ml 400 ml Output Total 550 ml 800 ml Balance -550 ml 200 ml -400 ml Intake Oral 0 ml Tube Irrigant 200 ml 400 ml Output Urine Total 550 ml 800 ml # Bowel Movements 2 2 Procedures 01/02/16 PEG placement 01/02/16 tracheostomy 07/22/2016 Wide excision of sacral skin wound, biopsy of the cavity lining and debridement. PEG tube replacement 07/29/16 Objective Remarks GENERAL: SKIN: Warm and dry. HEAD: Atraumatic. Normocephalic. EYES: Pupils equal and round. No scleral icterus. No injection or drainage. ENT: No nasal bleeding or discharge. Mucous membranes pink and moist. NECK: Trachea midline. No JVD. TRACH. [place] CARDIOVASCULAR: Regular rate and rhythm. RESPIRATORY: No accessory muscle use. Clear to auscultation. Breath sounds equal bilaterally. GASTROINTESTINAL: Abdomen soft, non-tender, nondistended. Hepatic and splenic margins not palpable. MUSCULOSKELETAL: Extremities without clubbing, cyanosis, or edema. No obvious deformities. NEUROLOGICAL: Awake and alert. No obvious cranial nerve deficits. Motor grossly within normal limits. Five out of 5 muscle strength in the arms and legs. Normal speech. PSYCHIATRIC: Appropriate mood and affect; insight and judgment normal. Assessment and Plan Assessment and Plan impression respiratory failure CVA S/P TRACHEOSTOMY PLAN O2 NEEDED PULM. TOILET Brandon Taylor MD Nov 10, 2016 12:21
--- NOTE | 2016-11-10 12:25 | HHI.PR ---
Subjective Remarks Follow-up for CVA Patient continues to be nonverbal. He does not really follow commands. Per patient's mother she feels that he is the same. No acute events overnight. Objective Vitals Vital Signs Date Time Temp Pulse Resp B/P Pulse Ox O2 Delivery O2 Flow Rate FiO2 11/10/16 11:16 80 11/10/16 09:17 100 T-piece 28 11/10/16 09:17 100 T-piece 28 11/10/16 08:31 96.1 80 20 112/70 100 11/10/16 05:45 98.0 83 18 115/76 100 11/10/16 00:00 98.1 86 17 120/75 99 11/09/16 21:30 97.4 89 19 118/74 98 11/09/16 21:00 88 11/09/16 20:34 100 T-piece 5.00 28 11/09/16 20:34 100 T-piece 5.00 28 11/09/16 16:22 96.6 85 20 118/74 100 I/O 11/09/16 11/09/16 11/09/16 11/10/16 11/10/16 11/10/16 06:59 14:59 22:59 06:59 14:59 22:59 Intake Total 200 ml 400 ml Output Total 550 ml 800 ml Balance -550 ml 200 ml -400 ml Intake Oral 0 ml Tube Irrigant 200 ml 400 ml Output Urine Total 550 ml 800 ml # Bowel Movements 2 2 Objective Remarks Gen NAD CV RRR. no r//g Resp trach in place CTA B/L abd soft NDNT NEURO patient is awake and tracking but does not follow commands. Procedures 01/02/16 PEG placement 01/02/16 tracheostomy 07/22/2016 Wide excision of sacral skin wound, biopsy of the cavity lining and debridement. PEG tube replacement 07/29/16 VAC changes- M-W-F 4/5- GJ tube replacement Medications and IVs Current Medications IV Flush (NS Flush) 2 ml UNSCH PRN IVF FLUSH AFTER USING IV ACCESS Last administered on 09/28/16t 21:18; Start 12/21/15 at 06:00 Ondansetron HCl (Zofran Inj) 4 mg STK-MED ONCE .ROUTE ; Start 12/21/15 at 06:22; Stop 12/21/15 at 06:23; Status DC Ondansetron HCl (Zofran Inj) 4 mg ONCE ONCE IV PUSH Last administered on at 06:43; Start 12/21/15 at 06:30; Stop 12/21/15 at 06:31; Status DC Diltiazem HCl 20 mg 20 mg ONCE ONCE IV Last administered on 12/21/15at 06:42; Start 12/21/15 at 06:30; Stop 12/21/15 at 06:31; Status DC Diltiazem HCl/ Sodium Chloride (Cardizem Inj/NS Inj) 125 ml @ 0 mls/hr TITRATE IV Last administered on 12/21/15at 06:47; Start 12/21/15 at 06:30; Stop 12/21/15 at 13:00; Status DC Acetaminophen (Tylenol) 650 mg ONCE ONCE PO ; Start 12/21/15 at 06:45; Stop 12/20 at 06:46; Status DC Lorazepam (Ativan Inj) 1 mg ONCE ONCE IV PUSH Last administered on 12/21/15at 07 :22; Start 12/21/15 at 07:15; Stop 12/21/15 at 07:16; Status DC Etomidate (Amidate Inj) 40 mg STK-MED ONCE .ROUTE Last administered on at 08:17; Start 12/21/15 at 07:37; Stop 12/21/15 at 07:38; Status DC Succinylcholine Chloride 200 mg 200 mg STK-MED ONCE .ROUTE Last administered on 12/21/15at 08:18; Start 12/21/15 at 07:37; Stop 12/21/15 at 07:38; Status DC Propofol (Diprivan 1000 Mg/100ml Inj) 100 ml @ As Directed STK-MED ONCE .ROUTE Last administered on 12/21/15at 08:19; Start 12/21/15 at 07:46; Stop 12/21/15 at 07:47; Status DC Propofol (Diprivan 1000 Mg/100ml Inj) search Sets for Drip. NOW PRN IV SEDATION Last administered on 12/22/15at 06:25; Start 12/21/15 at 08:30; Stop 12/28 at 15:43; Status DC Gadodiamide (Omniscan Pf Inj) 18 ml STK-MED ONCE IV Last administered on at 10:11; Start 12/21/15 at 10:11; Stop 12/21/15 at 10:12; Status DC Pantoprazole Sodium (Protonix Inj) 40 mg DAILY IV Last administered on at 07:39; Start 12/21/15 at 13:00; Stop 01/03/16 at 10:10; Status DC Albuterol/ Ipratropium (Duoneb Neb) 1 ampule Q6HR NEB INH Last administered on 12/25/15at 07:51; Start 12/21/15 at 13:00; Stop 12/25/15 at 13:00; Status DC Miscellaneous Information 1 [id number] Last administered on 12/21/15at 13:00; Start 12/21/15 at 13:00; Stop 01/12/16 at 11:47; Status DC Chlorhexidine Gluconate (Chlorhexidine 2% Cloth) 3 pack Taper DAILY@04 TOP Last administered on 01/11/16at 04:10; Start 12/22/15 at 04:00; Stop 01/12/16 at 11:47; Status DC Chlorhexidine Gluconate 3 pack 3 pack UNSCH PRN TOP HYGIENIC CARE; Start at 13:00; Stop 01/12/16 at 11:47; Status DC Sodium Chloride (NS 1000 ml Inj) 1,000 ml @ 75 mls/hr [id number] IV Last administered on 12/22/15at 17:00; Start 12/21/15 at 13:00; Stop 12/22/15 at 19:01; Status DC Dextrose (D50w (Vial) Inj) 25 ml UNSCH PRN IV PUSH HYPOGLYCEMIA-SEE COMMENTS; Start 12/21/15 at 13:00; Stop 04/19/16 at 17:19; Status DC Glucagon (Glucagon Inj) 1 mg UNSCH PRN OTHER HYPOGLYCEMIA-SEE COMMENTS; Start 12/21/15 at 13:00; Stop 04/19/16 at 17:19; Status DC Insulin Human Regular (NovoLIN R SUPPLEMENTAL SCALE) 1 Q6H SQ Last administered on 01/04/16at 06:31; Start 12/21/15 at 13:00; Stop 01/04/16 at 10:05 ; Status DC Levetriacetam (Keppra) 500 mg Q12HR PO Last administered on 12/27/15at 09:00; Start 12/21/15 at 13:45; Stop 12/27/15 at 09:44; Status DC Heparin Sodium (Porcine) (Heparin Inj) 5,000 units BID SQ Last administered on 12/22/15at 20:52; Start 12/21/15 at 21:00; Stop 12/23/15 at 08:32; Status DC Warfarin Sodium (Coumadin) 7.5 mg ONCE ONCE PO Last administered on 12/21/15at 21:43; Start 12/21/15 at 21:00; Stop 12/21/15 at 21:01; Status DC Warfarin Sodium (Coumadin) 5 mg DAILY@16 PO Last administered on 12/23/15at 16:00 ; Start 12/22/15 at 16:00; Stop 12/26/15 at 09:29; Status DC Patient Medication Teaching (Coumadin Booklet) 1 ONCE ONCE XX Last administered on 12/21/15at 20:15; Start 12/21/15 at 20:15; Stop 12/21/15 at 20:16; Status DC Chlorhexidine Gluconate (Peridex 0.12% Liq) 15 ml BID@08,20 MT Last administered on 01/12/16at 08:00; Start 12/22/15 at 20:00; Stop 01/12/16 at 11:47 ; Status DC Gadodiamide 20 ml 20 ml STK-MED ONCE IV Last administered on 12/22/15at 09:55; Start 12/22/15 at 09:55; Stop 12/22/15 at 09:56; Status DC Pharmacy Profile Note ml @ 0 mls/hr UNSCH OTHER ; Start 12/22/15 at 11:00; Stop 12/22/15 at 19:43; Status DC Sodium Chloride 1,000 ml @ 50 mls/hr Q20H IV Last administered on 12/24/15at 20: 02; Start 12/22/15 at 18:44; Stop 12/25/15 at 11:52; Status DC Pharmacy Profile Note (Coumadin Consult Pharmacy) 0 ml @ 0 mls/hr UNSCH OTHER ; Start 12/22/15 at 19:45; Stop 01/04/16 at 12:25; Status DC Acetaminophen 650 mg 650 mg Q6H PRN PO TEMP > 100 Last administered on at 13:24; Start 12/23/15 at 02:45; Stop 12/30/15 at 15:04; Status DC Potassium Chloride 100 ml @ 50 mls/hr Q2H PRN IV For Potassium 2.8 - 3.2 mEq/L ; Start 12/23/15 at 08:30; Stop 01/09/16 at 11:14; Status DC Potassium Chloride (KCl 20 Meq Premix Inj) 100 ml @ 50 mls/hr Q2H PRN IV For Potassium 2.8 - 3.2 mEq/L; Start 12/23/15 at 08:30; Stop 01/09/16 at 11:14; Status DC Potassium Chloride 40 meq 40 meq UNSCH PRN PO/TUBE For Potassium 3.3 - 3.5 mEq/ L; Start 12/23/15 at 08:30; Stop 01/09/16 at 11:14; Status DC Potassium Chloride 100 ml @ 25 mls/hr UNSCH PRN IV For Potassium 3.3 - 3.5 mEq /L; Start 12/23/15 at 08:30; Stop 01/09/16 at 11:14; Status DC Potassium Chloride 100 ml @ 50 mls/hr Q2H PRN IV For Potassium 3.3 - 3.5 mEq/L ; Start 12/23/15 at 08:30; Stop 01/09/16 at 11:14; Status DC Magnesium Sulfate/ Sodium Chloride (Magnesium Sulfate Inj/NS Inj) 100 ml @ 50 mls/hr UNSCH PRN IV For Magnesium 0.9 - 1.1 mg/dL; Start 12/23/15 at 08:30; Stop 01/09/16 at 11:14; Status DC Magnesium Oxide 800 mg 800 mg UNSCH PRN PO For Magnesium 1.2 - 1.6 mg/dL; Start 12/23/15 at 08:30; Stop 01/09/16 at 11:14; Status DC Magnesium Sulfate/ Sodium Chloride (Magnesium Sulfate Inj/NS Inj) 100 ml @ 50 mls/hr UNSCH PRN IV For Magnesium 1.2 - 1.6 mg/dL; Start 12/23/15 at 08:30; Stop 01/09/16 at 11:14; Status DC Potassium Phosphate 2000 mg 2,000 mg Q4H PRN PO For Phosphorus < 2.5 mg/dL; Start 12/23/15 at 08:30; Stop 01/09/16 at 11:14; Status DC Sodium Phosphate/ Sodium Chloride (Sodium Phosphate Inj/NS 250 ml Inj) 250 ml @ 42 mls/hr UNSCH PRN IV For Phosphorus < 2.5 mg/dL; Start 12/23/15 at 08:30; Stop 01/09/16 at 11:14; Status DC Potassium Chloride (KCl 40 Meq/30 ml Liq) 40 meq UNSCH PRN PO/TUBE SEE LABEL COMMENTS; Start 12/23/15 at 08:30; Stop 01/09/16 at 11:14; Status DC Potassium Phosphate 2000 mg 2,000 mg UNSCH PRN PO/TUBE SEE LABEL COMMENTS; Start 12/23/15 at 08:30; Stop 01/09/16 at 11:14; Status DC Potassium Phosphate 30 mmol/ Sodium Chloride 260 ml @ 42 mls/hr UNSCH PRN IV SEE LABEL COMMENTS; Start 12/23/15 at 08:30; Stop 01/09/16 at 11:14; Status DC Sodium Chloride 1,000 ml @ 75 mls/hr [id number] IV ; Start 12/23/15 at 08:30; Stop 12/23/15 at 08:30; Status DC Piperacillin Sod/ Tazobactam Sod 50 ml @ 100 mls/hr Q6H IV Last administered on 12/30/15at 10:02; Start 12/23/15 at 10:00; Stop 12/30/15 at 14:50; Status DC Vancomycin HCl/ Sodium Chloride (Vancomycin Inj/ NS 250 ml Inj) 250 ml @ 250 mls/hr Q12H IV Last administered on 12/29/15at 09:01; Start 12/24/15 at 08:45; Stop 12/29/15 at 15:33; Status DC Warfarin Sodium (Coumadin) 4 mg DAILY@16 PO Last administered on 12/28/15at 16:00 ; Start 12/26/15 at 16:00; Stop 01/04/16 at 12:25; Status DC Levetriacetam (Keppra Liq) 500 mg Q12HR TUBE Last administered on 11/10/16t 08 :15; Start 12/27/15 at 21:00 Docusate Sodium (Colace Liq) 100 mg Q12HR TUBE Last administered on 01/15/16at 09:01; Start 12/27/15 at 21:00; Stop 04/16/16 at 08:50; Status DC Sennosides (Senna Liq) 8.8 mg DAILY TUBE Last administered on 01/15/16at 09:01 ; Start 12/27/15 at 17:00; Stop 01/15/16 at 20:37; Status DC Bisacodyl (Dulcolax Supp) 10 mg ONCE ONCE RECTAL ; Start 12/27/15 at 16:15; Stop 12/27/15 at 16:15; Status DC Albuterol/ Ipratropium (Duoneb Neb) 1 ampule Q4HR NEB PRN NEB RESPIRATORY DISTRESS Last administered on 12/29/15at 12:17; Start 12/27/15 at 22:00; Stop at 08:16; Status DC Bisacodyl (Dulcolax Supp) 10 mg ONCE ONCE RECTAL ; Start 12/28/15 at 12:00; Stop 12/28/15 at 12:01; Status DC Sodium Chloride (Sodium Chloride) 1 gm BID TUBE Last administered on 12/29/15at 09:02; Start 12/28/15 at 21:00; Stop 12/29/15 at 15:43; Status DC Lactulose (Lactulose Liq) 30 ml DAILY TUBE Last administered on 12/29/15at 09:02 ; Start 12/28/15 at 20:30; Stop 12/29/15 at 15:43; Status DC Levofloxacin (Levaquin) 750 mg DAILY@16 TUBE ; Start 12/29/15 at 16:00; Stop 05/05 at 16:00; Status DC Sodium Chloride (Sodium Chloride) 1 gm DAILY TUBE Last administered on at 07:29; Start 12/30/15 at 09:00; Stop 12/31/15 at 14:08; Status DC Water 200 ml 200 ml Q6HR G-TUBE Last administered on 12/31/15at 04:19; Start 06/05 at 14:45; Stop 12/31/15 at 07:31; Status DC Ceftriaxone Sodium/Sodium Chloride (Rocephin Inj/NS Inj) 100 ml @ 200 mls/hr Q12H IV Last administered on 01/03/16at 02:47; Start 12/30/15 at 15:00; Stop at 10:09; Status DC Acetaminophen (Tylenol 650 Mg/ 20 ml Liq) 650 mg Q6H PRN TUBE TEMP >100.4 Last administered on 10/25/16t 15:13; Start 12/30/15 at 15:15 Lactobacillus Acidophilus (Lactinex Pkt) 1 gm BID TUBE Last administered on at 09:00; Start 12/30/15 at 21:00; Stop 02/10/16 at 14:30; Status DC Enoxaparin Sodium (Lovenox Inj) 90 mg Q12H SQ Last administered on 01/01/16at 21 :57; Start 12/31/15 at 08:00; Stop 01/03/16 at 10:33; Status DC Water (Free Water) 100 ml Q12H G-TUBE ; Start 12/31/15 at 18:00; Stop 12/31/15 at 18:00; Status DC Acetaminophen/ Hydrocodone Bitart ([place] 5-325 Mg) 1 tab Q6H PRN PO PAIN Last administered on 05/26/16at 20:46; Start 12/31/15 at 15:00; Stop 06/02/16 at 21: 44; Status DC Fentanyl Citrate (Sublimaze Inj) 25 mcg Q1H PRN IV PUSH BREAKTHROUGH PAIN; Start 12/31/15 at 15:00; Stop 03/06/16 at 10:03; Status DC Water (Free Water) 200 ml Q8H G-TUBE Last administered on 01/01/16at 17:55; Start 12/31/15 at 18:00; Stop 01/02/16 at 09:56; Status DC Sodium Chloride (Sodium Chloride) 1 gm BID TUBE Last administered on 01/03/16at 07:39; Start 12/31/15 at 21:00; Stop 01/03/16 at 09:08; Status DC Miscellaneous Information Hold Anticoagulation after midni... ONCE ONCE OTHER ; Start 01/01/16 at 10:15; Stop 01/01/16 at 10:29; Status DC Sodium Chloride (NS 1000 ml Inj) 1,000 ml @ 50 mls/hr Q20H IV Last administered on 01/02/16at 12:26; Start 01/01/16 at 18:00; Stop 01/03/16 at 10:07 ; Status DC Midazolam HCl (Versed Inj) 5 mg STK-MED ONCE .ROUTE ; Start 01/02/16 at 12:47; Stop 01/02/16 at 12:48; Status DC Vecuronium [place] (Norcuron 10 Mg Inj) 10 mg STK-MED ONCE .ROUTE ; Start at 12:47; Stop 01/02/16 at 12:48; Status DC Fentanyl Citrate (Sublimaze Inj) 250 mcg ONCE ONCE IV PUSH Last administered on 01/02/16at 15:00; Start 01/02/16 at 15:00; Stop 01/02/16 at 15:01; Status DC Midazolam HCl (Versed Inj) 10 mg ONCE ONCE IV PUSH Last administered on at 15:00; Start 01/02/16 at 15:00; Stop 01/02/16 at 15:01; Status DC Rocuronium [place] (Zemuron Inj) 100 mg BOLUS ONCE IV Last administered on at 15:00; Start 01/02/16 at 15:00; Stop 01/02/16 at 15:01; Status DC Ketamine HCl (Ketalar Inj) 500 mg STK-MED ONCE .ROUTE ; Start 01/02/16 at 14:30 ; Stop 01/02/16 at 14:31; Status DC Propofol 230 mg 230 mg STK-MED ONCE IV ; Start 01/02/16 at 16:51; Stop 01/02/16 at 16:52; Status DC Sodium Chloride (NS 1000 ml Inj) 1,000 ml @ 0 mls/hr Q0M IV ; Start 01/03/16 at 10:15; Stop 01/17/16 at 17:30; Status DC Ranitidine HCl (Zantac Liq) 150 mg Q12HR PO Last administered on 01/17/16at 07: 39; Start 01/04/16 at 09:00; Stop 01/17/16 at 15:23; Status DC Enoxaparin Sodium 90 mg 90 mg Q12HR SQ Last administered on 01/11/16at 10:01; Start 01/04/16 at 09:00; Stop 01/11/16 at 12:35; Status DC Sodium Chloride (NS 500 ml Inj) 500 ml @ 0 mls/hr BOLUS ONCE IV Last administered on 01/03/16at 22:57; Start 01/03/16 at 23:00; Stop 01/03/16 at 23:01 ; Status DC Insulin Aspart (NovoLOG SUPPLEMENTAL SCALE) 1 Q6HR SQ Last administered on at 12:00; Start 01/04/16 at 12:00; Stop 03/24/16 at 13:58; Status DC Potassium Chloride (KCl 40 Meq/30 ml Liq) 40 meq Q4H NG Last administered on at 16:21; Start 01/04/16 at 13:00; Stop 01/04/16 at 17:01; Status DC Warfarin Sodium 5 mg 5 mg DAILY@1600 PO Last administered on 01/09/16at 17:21; Start 01/04/16 at 16:00; Stop 01/10/16 at 10:06; Status DC Pharmacy Profile Note (Coumadin Consult Pharmacy) 0 ml @ 0 mls/hr UNSCH XX ; Start 01/04/16 at 12:30; Stop 04/20/16 at 12:04; Status DC Insulin Detemir (Levemir Inj) 10 units Q12HR SQ Last administered on 01/05/16at 08:00; Start 01/04/16 at 21:00; Stop 01/05/16 at 08:42; Status DC Insulin Detemir (Levemir Inj) 5 units NOW ONCE SQ Last administered on at 13:28; Start 01/04/16 at 12:45; Stop 01/04/16 at 12:46; Status DC Albuterol/ Ipratropium (Duoneb Neb) 1 ampule Q4HR NEB PRN NEB dyspnea Last administered on 04/19/16at 02:24; Start 01/07/16 at 08:15; Stop 04/25/16 at 18:54 ; Status DC Warfarin Sodium (Coumadin) 7.5 mg ONCE ONCE PO Last administered on 01/07/16at 16:40; Start 01/07/16 at 16:00; Stop 01/07/16 at 16:01; Status DC Nystatin (Mycostatin Powder) 1 applic Q12HR TOPICAL Last administered on t 08:16; Start 01/08/16 at 21:00 Ipratropium [place] (Atrovent Neb) 0.5 mg TID NEB NEB Last administered on 02/20at 13:17; Start 01/08/16 at 20:00; Stop 02/21/16 at 17:52; Status DC Warfarin Sodium (Coumadin) 5 mg DAILY@1600 PO Last administered on 01/11/16at 14 :26; Start 01/11/16 at 16:00; Stop 01/12/16 at 09:45; Status DC Warfarin Sodium (Coumadin) 6 mg ONCE PO Last administered on 01/10/16at 17:10; Start 01/10/16 at 16:00; Stop 01/10/16 at 21:00; Status DC Metoprolol Tartrate (Lopressor) 50 mg Q12HR GT Last administered on 01/11/16at 10:02; Start 01/10/16 at 11:00; Stop 01/11/16 at 12:30; Status DC Metoprolol Tartrate (Lopressor) 50 mg TID GT Last administered on 01/14/16at 08: 24; Start 01/11/16 at 13:00; Stop 01/14/16 at 08:28; Status DC Insulin Detemir (Levemir Inj) 10 units HS SQ Last administered on 01/11/16at 22: 23; Start 01/11/16 at 21:00; Stop 01/12/16 at 11:47; Status DC Warfarin Sodium (Coumadin) 4 mg DAILY@16 PO ; Start 01/12/16 at 16:00; Stop at 16:00; Status DC Insulin Detemir (Levemir Inj) 20 units HS SQ Last administered on 01/13/16at 20: 26; Start 01/12/16 at 21:00; Stop 01/14/16 at 08:28; Status DC Warfarin Sodium (Coumadin) 2 mg DAILY@16 PO Last administered on 01/13/16at 17: 05; Start 01/12/16 at 16:00; Stop 01/14/16 at 11:23; Status DC Insulin Detemir (Levemir Inj) 22 units HS SQ Last administered on 01/14/16at 21: 37; Start 01/14/16 at 21:00; Stop 01/15/16 at 10:06; Status DC Metoprolol Tartrate (Lopressor) 75 mg TID GT Last administered on 03/10/16at 17: 43; Start 01/14/16 at 09:00; Stop 03/10/16 at 21:13; Status DC Miscellaneous (Pill Splitter) 1 ea UNSCH PRN OTHER SEE LABEL COMMENTS; Start at 08:30 Warfarin Sodium (Coumadin) 4 mg DAILY@1600 PO Last administered on 01/21/16at 16: 51; Start 01/14/16 at 16:00; Stop 01/23/16 at 09:29; Status DC Patient Medication Teaching (Coumadin Booklet) 1 ONCE ONCE XX ; Start 01/14/16 at 16:00; Stop 01/14/16 at 16:01; Status DC Insulin Detemir (Levemir Inj) 24 units HS SQ Last administered on 03/04/16at 21: 09; Start 01/15/16 at 21:00; Stop 03/05/16 at 11:17; Status DC Citalopram Hydrobromide (CeleXA) 20 mg DAILY PEG Last administered on at 08:01; Start 01/16/16 at 09:00; Stop 01/16/16 at 09:41; Status DC Sennosides (Senna Liq) 8.8 mg BID TUBE Last administered on 02/20/16at 08:32; Start 01/15/16 at 21:00; Stop 02/20/16 at 16:13; Status DC Gadodiamide 18 ml 18 ml STK-MED ONCE IV ; Start 01/16/16 at 20:40; Stop at 20:41; Status DC Sodium Chloride (NS 1000 ml Inj) 1,000 ml @ 125 mls/hr Q8H IV Last administered on 01/17/16at 15:11; Start 01/17/16 at 15:00; Stop 01/17/16 at 17:31 ; Status DC Ranitidine HCl 150 mg 150 mg Q24H PO Last administered on 07/28/16t 08:54; Start 01/18/16 at 09:00; Stop 07/30/16 at 10:05; Status DC Sodium Chloride 1,000 ml @ 75 mls/hr [id number] IV Last administered on at 05:22; Start 01/17/16 at 18:00; Stop 01/18/16 at 09:28; Status DC Sodium Chloride/ Sterile Water (Sodium Chloride 23.4% Inj/Sterile Water For Inj ) 1,009.625 ml @ 60 mls/hr [id number] IV Last administered on 01/21/16at 22:46; Start 01/18/16 at 11:00; Stop 01/22/16 at 10:09; Status DC Potassium Chloride (KCl) 40 meq ONCE ONCE PO ; Start 01/18/16 at 09:30; Stop at 09:31; Status DC Potassium Chloride (KCl 40 Meq/30 ml Liq) 40 meq ONCE ONCE TUBE Last administered on 01/18/16at 11:08; Start 01/18/16 at 11:00; Stop 01/18/16 at 11:01 ; Status DC Water (Free Water) 300 ml Q4HR TUBE Last administered on 01/19/16at 08:00; Start 01/18/16 at 12:00; Stop 01/19/16 at 10:43; Status DC Water (Free Water) 400 ml Q4HR TUBE Last administered on 04/16/16at 04:00; Start 01/19/16 at 12:00; Stop 04/16/16 at 09:09; Status DC Potassium Chloride (KCl 40 Meq/30 ml Liq) 40 meq ONCE ONCE NG Last administered on 01/19/16at 11:41; Start 01/19/16 at 11:00; Stop 01/19/16 at 11:01; Status DC Potassium Chloride 60 meq 60 meq ONCE ONCE PO/TUBE Last administered on at 13:30; Start 01/21/16 at 11:15; Stop 01/21/16 at 11:27; Status DC Sodium Chloride (1/2 NS 1000 ml Inj) 1,000 ml @ 30 mls/hr Q24H IV Last administered on 02/06/16at 11:26; Start 01/22/16 at 11:00; Stop 02/07/16 at 14:49 ; Status DC Warfarin Sodium (Coumadin) 3 mg DAILY@16 PO Last administered on 01/23/16at 17:19 ; Start 01/23/16 at 16:00; Stop 01/24/16 at 14:05; Status DC Warfarin Sodium (Coumadin) 3 mg DAILY@16 PO Last administered on 01/25/16at 15:59 ; Start 01/25/16 at 16:00; Stop 01/26/16 at 15:04; Status DC Warfarin Sodium (Coumadin) 4 mg ONCE@1600 ONCE PO Last administered on at 16:55; Start 01/24/16 at 16:00; Stop 01/24/16 at 16:01; Status DC Warfarin Sodium (Coumadin) 3 mg DAILY@16 PO ; Start 01/27/16 at 16:00; Stop at 16:00; Status DC Warfarin Sodium (Coumadin) 4 mg ONCE@1600 ONCE PO Last administered on at 16:52; Start 01/26/16 at 16:00; Stop 01/26/16 at 16:01; Status DC Potassium Chloride (KCl 40 Meq/30 ml Liq) 80 meq ONCE ONCE PO Last administered on 01/27/16at 07:45; Start 01/27/16 at 07:45; Stop 01/27/16 at 08:10; Status DC Warfarin Sodium (Coumadin) 4 mg DAILY@16 PO Last administered on 02/02/16at 17: 22; Start 01/27/16 at 16:00; Stop 02/03/16 at 11:37; Status DC Acetic Acid (Acetic Acid 0.25% Irr Btl) 10 ml Q8HR IRRIGATION Last administered on 02/05/16at 06:00; Start 01/28/16 at 22:00; Stop 02/05/16 at 15:51 ; Status DC Warfarin Sodium 3 mg 3 mg DAILY@1600 PO Last administered on 02/11/16at 17:34; Start 02/03/16 at 16:00; Stop 02/12/16 at 12:45; Status DC Ceftriaxone Sodium/Sodium Chloride (Rocephin Inj/NS Inj) 100 ml @ 200 mls/hr Q24H IV Last administered on 02/10/16at 05:23; Start 02/05/16 at 06:30; Stop at 14:32; Status DC Acetic Acid (Acetic Acid 0.25% Irr Btl) 10 ml Q8HR IRRIGATION ; Start 02/05/16 at 16:00; Status Cancel Acetic Acid (Acetic Acid 0.25% Irr Btl) 10 ml Q8HR IRRIGATION Last administered on 11/09/16t 20:46; Start 02/05/16 at 16:00 Lactobacillus Acidophilus (Lactinex) 1 tab Q12HR PO Last administered on at 08:25; Start 02/10/16 at 21:00; Stop 02/12/16 at 16:05; Status DC Warfarin Sodium (Coumadin) 4 mg DAILY@1600 PO Last administered on 02/14/16at 15 :56; Start 02/12/16 at 16:00; Stop 02/15/16 at 10:17; Status DC Paroxetine HCl (Paxil Liq) 20 mg DAILY PEG Last administered on 02/25/16at 07:33 ; Start 02/16/16 at 09:00; Stop 02/25/16 at 10:36; Status DC Warfarin Sodium (Coumadin) 3 mg DAILY@1600 PO Last administered on 02/19/16at 16: 42; Start 02/15/16 at 16:00; Stop 02/20/16 at 08:50; Status DC Warfarin Sodium (Coumadin) 4 mg DAILY@16 PO Last administered on 02/21/16at 15:54 ; Start 02/20/16 at 16:00; Stop 02/22/16 at 08:46; Status DC Sennosides (Senna Liq) 8.8 mg DAILY TUBE Last administered on 05/26/16at 08:14 ; Start 02/21/16 at 09:00; Stop 05/27/16 at 11:51; Status DC Albuterol Sulfate (Albuterol Neb) 2.5 mg QID NEB INH Last administered on at 19:51; Start 02/21/16 at 20:00; Stop 02/25/16 at 20:00; Status DC Acetylcysteine (Mucomyst 10% Neb) 1 ml QID NEB NEB Last administered on at 16:32; Start 02/21/16 at 20:00; Stop 02/23/16 at 16:01; Status DC Warfarin Sodium (Coumadin) 3 mg DAILY@16 PO Last administered on 02/22/16at 15:59 ; Start 02/22/16 at 16:00; Stop 02/23/16 at 08:56; Status DC Warfarin Sodium (Coumadin) 3 mg DAILY@16 PO Last administered on 02/28/16 16: 17; Start 02/24/16 at 16:00; Stop 02/29/16 at 10:04; Status DC Warfarin Sodium (Coumadin) 2 mg ONCE PO Last administered on 02/23/16at 16:22; Start 02/23/16 at 16:00; Stop 02/23/16 at 21:00; Status DC Paroxetine HCl (Paxil Liq) 20 mg DAILY@1900 PEG Last administered on 03/08/16at 18:11; Start 02/26/16 at 19:00; Stop 03/09/16 at 11:31; Status DC Warfarin Sodium (Coumadin) 3 mg DAILY@16 PO Last administered on 03/06/16at 16: 22; Start 03/01/16 at 16:00; Stop 03/09/16 at 10:30; Status DC Warfarin Sodium (Coumadin) 1 mg ONCE PO Last administered on 02/29/16at 17:28; Start 02/29/16 at 16:00; Stop 02/29/16 at 21:00; Status DC Insulin Detemir (Levemir Inj) 27 units HS SQ Last administered on 03/05/16at 20: 25; Start 03/05/16 at 21:00; Stop 03/06/16 at 10:03; Status DC Patient Medication Teaching (Coumadin Booklet) 1 ONCE ONCE XX Last administered on 03/05/16at 16:00; Start 03/05/16 at 16:00; Stop 03/05/16 at 16:01 ; Status DC Insulin Detemir (Levemir Inj) 30 units HS SQ Last administered on 03/21/16at 22: 32; Start 03/06/16 at 21:00; Stop 03/22/16 at 14:48; Status DC Trimethoprim/ Sulfamethoxazole (Bactrim 800-160 Mg/20 ml Liq) 20 ml Q12HR PO Last administered on 03/14/16at 08:01; Start 03/07/16 at 11:15; Stop 03/14/16 at 11:14; Status DC Lorazepam (Ativan Inj) 0.5 mg Q4H PRN IV PUSH seizures or agitation; Start at 23:00 Metronidazole (Flagyl) 500 mg Q8H PO Last administered on 03/14/16at 15:51; Start 03/08/16 at 17:00; Stop 03/14/16 at 23:00; Status DC Warfarin Sodium (Coumadin) 2 mg DAILY@16 PO Last administered on 03/09/16at 17: 20; Start 03/09/16 at 16:00; Stop 03/10/16 at 10:33; Status DC Paroxetine HCl (Paxil) 20 mg DAILY@1900 PEG Last administered on 03/11/16at 17: 55; Start 03/09/16 at 19:00; Stop 03/12/16 at 08:31; Status DC Warfarin Sodium 3 mg 3 mg DAILY@16 PO Last administered on 04/12/16at 15:28; Start 03/10/16 at 16:00; Stop 04/12/16 at 16:39; Status DC Pharmacy Profile Note 0 ml @ 0 mls/hr UNSCH OTHER ; Start 03/10/16 at 14:15; Stop 03/18/16 at 11:33; Status DC Vancomycin HCl/ Sodium Chloride (Vancomycin Inj/ NS 500 ml Inj) 530 ml @ 265 mls/hr Q12H IV Last administered on 03/17/16at 16:26; Start 03/10/16 at 16:00; Stop 03/17/16 at 23:00; Status DC Miscellaneous Information SPECIFIC LAB TO BE ... ONCE ONCE XX Last administered on 03/12/16at 04:45; Start 03/12/16 at 03:45; Stop 03/12/16 at 03:46 ; Status DC Metoprolol Tartrate (Lopressor) 75 mg Q8HR PO Last administered on 04/02/16at 13 :13; Start 03/10/16 at 22:00; Stop 04/02/16 at 17:31; Status DC Paroxetine HCl (Paxil Liq) 20 mg DAILY@1900 PEG Last administered on 11/09/16t 18:02; Start 03/12/16 at 19:00 Warfarin Sodium (Coumadin) 1 mg ONCE PO Last administered on 03/21/16at 16:24; Start 03/21/16 at 16:00; Stop 03/21/16 at 21:00; Status DC Warfarin Sodium (Coumadin) 1 mg ONCE PO Last administered on 03/22/16at 17:46; Start 03/22/16 at 16:00; Stop 03/22/16 at 21:00; Status DC Insulin Detemir (Levemir Inj) 32 units HS SQ Last administered on 03/22/16at 20: 18; Start 03/22/16 at 21:00; Stop 03/23/16 at 13:35; Status DC Diltiazem HCl (Cardizem Cd) 120 mg DAILY PO Last administered on 04/14/16at 07: 43; Start 03/22/16 at 16:00; Stop 04/14/16 at 14:39; Status DC Hyoscyamine Sulfate (Levsin Liq) 0.125 mg Q4H PRN PEG INCREASED SECRETIONS Last administered on 04/10/16at 08:05; Start 03/22/16 at 15:15; Stop 04/11/16 at 10:24; Status DC Warfarin Sodium (Coumadin) 2 mg ONCE ONCE PO Last administered on 03/23/16at 17: 26; Start 03/23/16 at 16:00; Stop 03/23/16 at 16:01; Status DC Insulin Detemir (Levemir Inj) 34 units HS SQ Last administered on 03/23/16at 20: 01; Start 03/23/16 at 21:00; Stop 03/24/16 at 13:53; Status DC Insulin Detemir (Levemir Inj) 35 units HS SQ Last administered on 11/09/16t 20: 35; Start 03/24/16 at 21:00 Insulin Aspart (NovoLOG SUPPLEMENTAL SCALE) 1 ACHS SLIDING SCALE SQ Last administered on 04/16/16at 22:27; Start 03/24/16 at 16:00; Stop 04/19/16 at 17:19 ; Status DC Warfarin Sodium (Coumadin) 1 mg ONCE ONCE PO Last administered on 03/30/16at 16 :59; Start 03/30/16 at 16:00; Stop 03/30/16 at 16:01; Status DC Potassium Chloride (KCl 40 Meq/30 ml Liq) 40 meq ONCE ONCE NG Last administered on 03/31/16at 21:28; Start 03/31/16 at 18:30; Stop 03/31/16 at 18:31 ; Status DC Potassium Bicarb/ Potassium Chloride (K-Lyte Cl Eff) 25 meq ONCE ONCE PEG Last administered on 04/02/16at 12:01; Start 04/02/16 at 13:00; Stop 04/02/16 at 13:01; Status DC Metoprolol Tartrate (Lopressor) 75 mg BID PO Last administered on 05/28/16at 21: 03; Start 04/02/16 at 21:00; Stop 05/29/16 at 11:21; Status DC Potassium Bicarb/ Potassium Chloride (K-Lyte Cl Eff) 25 meq ONCE ONCE PEG Last administered on 04/04/16at 14:40; Start 04/04/16 at 12:30; Stop 04/04/16 at 12:31; Status DC Linezolid (Zyvox) 600 mg Q12HR PO Last administered on 04/16/16at 09:11; Start 04/05/16 at 15:00; Stop 04/16/16 at 12:00; Status DC Artificial Tears (Lacrilube Opht Oint) 1 applic Q12HR EACH EYE Last administered on 09/04/16t 21:00; Start 04/10/16 at 11:00; Stop 09/05/16 at 14:38 ; Status DC Hyoscyamine Sulfate (Levsin) 0.25 mg Q4H PRN G-TUBE INCREASED SECRETIONS Last administered on 08/31/16t 05:02; Start 04/11/16 at 10:30 Diatrizoate Meglum/ Diatrizoate Sod ( Gastroview Liq) 18 ml ONCE ONCE PO Last administered on 04/12/16at 16:45; Start 04/12/16 at 16:15; Stop 04/12/16 at 16:16; Status DC Warfarin Sodium (Coumadin) 3 mg DAILY@16 PO ; Start 04/13/16 at 16:00; Stop 05/27/16 at 11:51; Status DC Iohexol (Omnipaque 350 Inj) 98 ml STK-MED ONCE IV Last administered on at 21:01; Start 04/12/16 at 21:01; Stop 04/12/16 at 21:02; Status DC Diltiazem HCl (Cardizem Cd) 180 mg DAILY PO ; Start 04/15/16 at 09:00; Stop at 08:50; Status DC Ondansetron HCl (Zofran Inj) 4 mg Q6HR PRN IV PUSH nausea/vomiting Last administered on 08/10/16 10:16; Start 04/14/16 at 19:45 Diltiazem HCl 60 mg 60 mg QID PO Last administered on 04/25/16at 17:26; Start at 13:00; Stop 04/25/16 at 19:06; Status DC Sodium Chloride 500 ml @ 500 mls/hr BOLUS ONCE IV Last administered on at 09:15; Start 04/15/16 at 09:15; Stop 04/15/16 at 10:14; Status DC Potassium Chloride/Dextrose/ Sodium Chloride (KCl Inj/D5W-NS 1000 ml Inj) 1,005 ml @ 100 mls/hr Q10H3M IV Last administered on 04/15/16at 21:03; Start at 11:00; Stop 04/16/16 at 09:09; Status DC Enoxaparin Sodium (Lovenox Inj) 90 mg Q12H SQ Last administered on 04/16/16at 21 :12; Start 04/16/16 at 09:00; Stop 04/17/16 at 10:37; Status DC Water 200 ml 200 ml Q4HR TUBE Last administered on 11/10/16 08:15; Start 04/16 at 12:00 Sodium Chloride 1,000 ml @ 84 mls/hr [id number] IV Last administered on at 08:38; Start 04/16/16 at 10:00; Stop 04/20/16 at 12:04; Status DC Ceftriaxone Sodium/Sodium Chloride (Rocephin Inj/NS Inj) 100 ml @ 200 mls/hr Q24H IV Last administered on 05/02/16at 13:19; Start 04/16/16 at 12:00; Stop 05/03/16 at 12:06; Status DC Acetaminophen/ Hydrocodone Bitart ([place] 5-325 Mg) 1 tab Q6HR PEG Last administered on 09/17/16 06:42; Start 04/18/16 at 18:00; Stop 09/17/16 at 09:17 ; Status DC Lactulose (Lactulose Liq) 30 ml NOW ONCE PEG Last administered on 04/19/16at 17 :21; Start 04/19/16 at 17:30; Stop 04/19/16 at 17:31; Status DC Lactulose (Lactulose Liq) 30 ml DAILY PEG Last administered on 05/26/16at 08:14 ; Start 04/20/16 at 09:00; Stop 05/27/16 at 11:39; Status DC Potassium Bicarb/ Potassium Chloride (K-Lyte Cl Eff) 50 meq ONCE ONCE PO Last administered on 04/20/16at 05:52; Start 04/20/16 at 05:45; Stop 04/20/16 at 05:46; Status DC Furosemide (Lasix Inj) 20 mg ONCE ONCE IV PUSH Last administered on 04/20/16at 17:35; Start 04/20/16 at 12:00; Stop 04/20/16 at 12:06; Status DC Insulin Aspart (NovoLOG SUPPLEMENTAL SCALE) 1 ACHS SLIDING SCALE SQ Last administered on 06/02/16at 12:10; Start 04/20/16 at 16:00; Stop 06/02/16 at 21: 44; Status DC Dextrose (D50w (Vial) Inj) 25 ml UNSCH PRN IV HYPOGLYCEMIA-SEE COMMENTS; Start 04/20/16 at 12:00 Glucagon (Glucagon Inj) 1 mg UNSCH PRN IM/SQ HYPOGLYCEMIA-SEE COMMENTS; Start 04/20/16 at 12:00 Lactobacillus Acidophilus (Lactinex) 1 tab Q12HR PEG Last administered on 06/06at 21:34; Start 04/22/16 at 09:00; Stop 06/07/16 at 09:32; Status DC Furosemide (Lasix Inj) 20 mg Q12H IV PUSH Last administered on 04/24/16at 08:52 ; Start 04/22/16 at 09:00; Stop 04/24/16 at 09:25; Status DC Potassium Bicarb/ Potassium Chloride (K-Lyte Cl Eff) 25 meq Q12HR TUBE Last administered on 05/27/16at 08:17; Start 04/22/16 at 09:00; Stop 05/27/16 at 11:51 ; Status DC Albumin Human (Albumin 25% Inj) 12.5 gm Q12H IV Last administered on 04/24/16at 08:46; Start 04/22/16 at 09:00; Stop 04/24/16 at 09:25; Status DC Furosemide (Lasix Inj) 20 mg DAILY IV PUSH Last administered on 05/08/16at 09: 01; Start 04/25/16 at 09:00; Stop 05/08/16 at 11:06; Status DC Albumin Human (Albumin 25% Inj) 12.5 gm DAILY IV Last administered on at 09:02; Start 04/25/16 at 10:00; Stop 05/08/16 at 11:06; Status DC Furosemide (Lasix Inj) 40 mg ONCE ONCE IV PUSH Last administered on 04/25/16at 18:15; Start 04/25/16 at 18:15; Stop 04/25/16 at 18:16; Status DC Albuterol/ Ipratropium (Duoneb Neb) 1 ampule Q6HR NEB NEB Last administered on 04/27/16at 15:52; Start 04/25/16 at 18:30; Stop 04/27/16 at 19:45; Status DC Ipratropium [place] (Atrovent Neb) 0.5 mg Q6HR NEB NEB Last administered on at 16:51; Start 04/25/16 at 22:00; Stop 04/27/16 at 16:44; Status DC Levalbuterol HCl (Xopenex Neb) 0.31 mg Q4HR NEB NEB Last administered on at 23:48; Start 04/25/16 at 20:00; Stop 04/27/16 at 16:43; Status DC Levalbuterol HCl (Xopenex Neb) 0.31 mg Q2HR NEB PRN NEB SHORTNESS OF BREATH; Start 04/25/16 at 18:45; Stop 04/28/16 at 10:50; Status DC Diltiazem HCl (Cardizem) 90 mg QID PEG Last administered on 07/17/16at 09:27; Start 04/25/16 at 21:00; Stop 07/17/16 at 17:52; Status DC Diltiazem HCl (Cardizem) 30 mg NOW ONCE PEG Last administered on 04/25/16at 21: 36; Start 04/25/16 at 19:15; Stop 04/25/16 at 19:16; Status DC Levalbuterol HCl (Xopenex Neb) 0.31 mg Q8HR NEB NEB ; Start 04/28/16 at 00:00; Stop 04/28/16 at 10:50; Status DC Levalbuterol HCl (Xopenex Neb) 0.63 mg Q4HR NEB PRN NEB SHORTNESS OF BREATH Last administered on 05/04/16at 15:26; Start 04/28/16 at 11:00; Stop 05/04/16 at 00:51; Status DC Levalbuterol HCl (Xopenex Neb) 0.63 mg Q8HR NEB NEB Last administered on 05/04at 00:07; Start 04/28/16 at 16:00; Stop 05/04/16 at 00:50; Status DC Polyethylene Glycol/ Electrolytes 4000 ml 4,000 ml ONCE ONCE PO Last administered on 05/05/16at 08:10; Start 05/05/16 at 08:45; Stop 05/05/16 at 08 :46; Status DC Cefazolin Sodium/ Dextrose 50 ml @ 100 mls/hr ONCE ONCE IV ; Start 05/06/16 at 14:00; Stop 05/06/16 at 14:29; Status DC Metronidazole 100 ml @ 100 mls/hr ONCE ONCE IV Last administered on at 14:00; Start 05/06/16 at 14:00; Stop 05/06/16 at 14:59; Status DC Ceftriaxone Sodium/Sodium Chloride (Rocephin Inj/NS Inj) 100 ml @ 200 mls/hr Q24H IV Last administered on 06/09/16at 12:36; Start 05/03/16 at 12:00; Stop 06/10/16 at 12:48; Status DC Levalbuterol HCl (Xopenex Neb) 0.63 mg Q8HR NEB NEB Last administered on 05/05at 08:00; Start 05/04/16 at 00:49; Stop 05/05/16 at 08:07; Status DC Levalbuterol HCl (Xopenex Neb) 0.63 mg Q4HR NEB PRN NEB SHORTNESS OF BREATH Last administered on 10/18/16t 15:44; Start 05/05/16 at 12:00 Levalbuterol HCl (Xopenex Neb) 0.63 mg Q8HR NEB NEB Last administered on 05/08at 23:56; Start 05/05/16 at 08:15; Stop 05/09/16 at 08:15; Status DC Potassium Bicarb/ Potassium Chloride (K-Lyte Cl Eff) 25 meq DAILY TUBE Last administered on 11/10/16 08:15; Start 05/28/16 at 09:00 Aspirin (Aspirin) 325 mg DAILY TUBE Last administered on 11/10/16 08:15; Start 05/27/16 at 11:40 Docusate Sodium (Colace Liq) 100 mg DAILY PRN PO constipation Last administered on 08/16/16 21:09; Start 05/27/16 at 11:45; Stop 08/31/16 at 09:00 ; Status DC Metoprolol Tartrate (Lopressor) 50 mg BID PO Last administered on 08/23/16 09: 03; Start 05/29/16 at 21:00; Stop 08/23/16 at 15:33; Status DC Acetaminophen/ Hydrocodone Bitart ([place] 5-325 Mg) 1 tab Q6H PRN TUBE BREAKTHROUGH PAIN Last administered on 08/02/16 15:11; Start 06/03/16 at 03:00 ; Stop 09/17/16 at 14:33; Status DC Insulin Aspart (NovoLOG SUPPLEMENTAL SCALE) 1 ACHS SLIDING SCALE SQ Last administered on 06/06/16at 21:35; Start 06/03/16 at 07:00; Stop 06/07/16 at 12 :24; Status DC Lactobacillus Acidophilus (Lactinex) 1 tab TID PEG Last administered on 09:13; Start 06/07/16 at 13:00; Stop 10/13/16 at 12:08; Status DC Insulin Aspart 1 1 AC BREAKFAST SQ Last administered on 11/05/16 07:00; Start 06/08/16 at 07:00 Ceftriaxone Sodium/Sodium Chloride (Rocephin Inj/NS Inj) 100 ml @ 200 mls/hr Q24H IV Last administered on 07/28/16 12:19; Start 06/10/16 at 12:00; Stop 07/29/16 at 13:30; Status DC Heparin Sodium (Porcine) (Heparin Inj) 5,000 units Q12HR SQ Last administered on 06/11/16at 00:58; Start 06/10/16 at 14:15; Stop 06/11/16 at 06:21; Status DC Heparin Sodium (Porcine) (Heparin Inj) 5,000 units Q8HR SQ Last administered on 11/10/16 06:11; Start 06/11/16 at 14:00 Diltiazem HCl (Cardizem) 30 mg QID PEG Last administered on 08/16/16 08:31; Start 07/17/16 at 18:00; Stop 08/16/16 at 12:06; Status DC Bacitracin 1 applic 1 applic BID TOP Last administered on 11/10/16 08:16; Start 07/20/16 at 10:00 Lactated Ringer's 1,000 ml @ 30 mls/hr Q24H IV ; Start 07/21/16 at 17:45; Stop 08/14/16 at 12:08; Status DC Sodium Chloride (NS 500 ml Inj) 500 ml @ 30 mls/hr [id number] IV ; Start 07/21/16 at 17:45; Stop 07/22/16 at 17:44; Status DC Insulin Human Regular (NovoLIN R INJ) See Protocol Table ... UNSCH X1 PRN SQ SEE PROTOCOL; Start 07/21/16 at 17:45; Stop 07/22/16 at 17:44; Status DC Metoprolol Tartrate (Lopressor) 25 mg UNSCH X1 PRN PO SEE LABEL COMMENTS; Start 07/21/16 at 17:45; Stop 07/22/16 at 17:44; Status DC Lidocaine/ Epinephrine (Xylocaine-Epi 1%-1:100,000 Inj) 40 ml STK-MED ONCE .ROUTE Last administered on 07/22/16 10:56; Start 07/22/16 at 10:04; Stop at 10:05; Status DC Ketamine HCl (Ketalar Inj) 500 mg STK-MED ONCE .ROUTE ; Start 07/22/16 at 10:50; Stop 07/22/16 at 10:51; Status DC Propofol 600 mg 600 mg STK-MED ONCE IV ; Start 07/22/16 at 12:00; Stop 07/23/16 at 14:36; Status DC Dextrose 1,000 ml @ 40 mls/hr Q24H ONCE IV Last administered on 07/28/16 14:33 ; Start 07/28/16 at 14:00; Stop 07/29/16 at 13:59; Status DC Ampicillin Sodium/ Sulbactam Sodium/ Sodium Chloride (Unasyn Inj/NS Inj) 100 ml @ 200 mls/hr Q6H IV Last administered on 08/01/16 12:30; Start 07/29/16 at 14: 00; Stop 08/01/16 at 14:13; Status DC Ondansetron HCl 4 mg 4 mg ONCE ONCE IV PUSH Last administered on 07/30/16 02: 46; Start 07/30/16 at 00:30; Stop 07/30/16 at 00:33; Status DC Lactated Ringer's 1,000 ml @ 30 mls/hr Q24H IV ; Start 07/30/16 at 06:00; Stop 08/14/16 at 12:09; Status DC Sodium Chloride (NS 500 ml Inj) 500 ml @ 30 mls/hr [id number] IV ; Start 07/30/16 at 06:00; Stop 07/31/16 at 05:59; Status DC Pantoprazole Sodium (Protonix Inj) 40 mg Q12H IV PUSH Last administered on 11/10 08:16; Start 07/30/16 at 10:15 Propofol 200 mg 200 mg STK-MED ONCE IV ; Start 07/30/16 at 09:41; Stop 07/30/16 at 10:19; Status DC Piperacillin Sod/ Tazobactam Sod (Zosyn 4.5 Gm Premix) 100 ml @ 200 mls/hr Q6H IV Last administered on 08/07/16 09:37; Start 08/01/16 at 16:00; Stop at 16:10; Status DC Linezolid (Zyvox) 600 mg Q12HR PO Last administered on 08/22/16 09:10; Start at 21:00; Stop 08/22/16 at 15:55; Status DC Sodium Chloride ([place]) 1 spray BID NASAL Last administered on 08:16; Start 08/01/16 at 21:00 Metronidazole 500 mg 500 mg Q8H PO Last administered on 08/08/16 08:28; Start 08/07/16 at 16:00; Stop 08/08/16 at 16:10; Status DC Sodium Chloride (NS 1000 ml Inj) 1,000 ml @ 42 mls/hr [id number] IV Last administered on 08/14/16 12:44; Start 08/14/16 at 12:00; Stop 08/15/16 at 10:56 ; Status DC Fentanyl Citrate (fentaNYL INJ) 250 mcg STK-MED ONCE .ROUTE Last administered on 08/14/16 15:36; Start 08/14/16 at 15:36; Stop 08/14/16 at 15:37; Status DC Iohexol (Omnipaque 350 Inj) 30 ml STK-MED ONCE G-TUBE Last administered on 08/14 15:45; Start 08/14/16 at 15:52; Stop 08/14/16 at 15:53; Status DC Diltiazem HCl (Cardizem) 30 mg QID PEG Last administered on 11/10/16 08:16; Start 08/16/16 at 13:00 Polyethylene Glycol (Miralax) 17 gm ONCE ONCE PEG Last administered on 11:32; Start 08/17/16 at 12:00; Stop 08/17/16 at 12:01; Status DC Amoxicillin 500 mg 500 mg Q8HR PO Last administered on 11/10/16 06:07; Start 08/22/16 at 22:00 Cefepime HCl/ Sodium Chloride (Maxipime Inj/NS Inj) 100 ml @ 200 mls/hr Q8H IV Last administered on 09/03/16 10:46; Start 08/23/16 at 16:00; Stop 09/03/16 at 15:02; Status DC Metoprolol Tartrate (Lopressor) 75 mg BID PO Last administered on 09/13/16 08: 42; Start 08/23/16 at 21:00; Stop 09/13/16 at 13:09; Status DC Docusate Sodium (Colace Liq) 100 mg BID PO Last administered on 11/10/16 08:15 ; Start 08/30/16 at 21:00 Sennosides (Senokot) 17.2 mg DAILY PO Last administered on 09/25/16 08:36; Start 08/30/16 at 14:00; Stop 09/25/16 at 16:09; Status DC Lactulose (Lactulose Liq) 30 ml DAILY PO Last administered on 11/10/16 08:16; Start 09/02/16 at 15:30 Artificial Tears (Tears Naturale Opth Soln) 1 drop BID EACH EYE Last administered on 11/10/16 08:16; Start 09/05/16 at 21:00 Midazolam HCl (Versed Inj) 2 mg STK-MED ONCE .ROUTE Last administered on 11:37; Start 09/09/16 at 11:37; Stop 09/09/16 at 11:38; Status DC Fentanyl Citrate (fentaNYL INJ) 100 mcg STK-MED ONCE .ROUTE Last administered on 09/09/16 11:38; Start 09/09/16 at 11:38; Stop 09/09/16 at 11:39; Status DC Iohexol (Omnipaque 350 Inj) 20 ml STK-MED ONCE G-TUBE Last administered on 09/09 11:50; Start 09/09/16 at 11:50; Stop 09/09/16 at 12:15; Status DC Metoprolol Tartrate (Lopressor) 50 mg BID PO Last administered on 11/10/16 08: 16; Start 09/13/16 at 21:00 Acetaminophen/ Hydrocodone Bitart ([place] 5-325 Mg) 1 tab Q6H PEG ; Start at 11:00; Stop 09/17/16 at 14:25; Status DC Acetaminophen/ Hydrocodone Bitart ([place] 5-325 Mg) 1 tab DAILY@1600 PO ; Start 09/17/16 at 16:00; Stop 09/17/16 at 16:00; Status DC Morphine Sulfate (Morphine Inj) 1 mg Q24H PRN IV PUSH dressing change 30 min before Last administered on 10/22/16 02:00; Start 09/17/16 at 14:30 Acetaminophen/ Hydrocodone Bitart ([place] 5-325 Mg) 1 tab DAILY@0000 PO Last administered on 09/17/16 23:43; Start 09/18/16 at 00:00; Stop 09/20/16 at 12:46; Status DC Acetaminophen/ Hydrocodone Bitart ([place] 5-325 Mg) 1 tab Q8H PO Last administered on 10/13/16 13:38; Start 09/20/16 at 13:00; Stop 10/13/16 at 18:29 ; Status DC Ketoconazole (Nizoral 2% Cream) 1 applic Q12HR TOPICAL Last administered on 08:16; Start 09/24/16 at 21:00 Sennosides (Senna Liq) 8.8 mg DAILY@1600 PO Last administered on 11/09/16 16: 01; Start 09/25/16 at 17:00 Sodium Biphosphate/ Sodium Phosphate (Fleets Enema (Adult)) 133 ml UNSCH PRN [place] CONSTIPATION; Start 09/25/16 at 16:00 Bisacodyl (Dulcolax Supp) 10 mg DAILY PRN RECTAL CONSTIPATION Last administered on 10/20/16 12:53; Start 09/26/16 at 15:30 Bisacodyl (Dulcolax Supp) 10 mg ONCE ONCE RECTAL Last administered on 16:10; Start 09/26/16 at 15:30; Stop 09/26/16 at 15:31; Status DC Cyclobenzaprine HCl (Flexeril) 5 mg Q8H PO Last administered on 10/13/16 13:37 ; Start 10/13/16 at 12:15; Stop 10/13/16 at 18:27; Status DC Magnesium Hydroxide (Milk Of Magntram Liq) 30 ml DAILY PRN PO constipation Last administered on 10/20/16 12:54; Start 10/13/16 at 14:30 Acetaminophen/ Hydrocodone Bitart ([place] 5-325 Mg) 1 tab Q6H PRN PO PAIN SCALE 1 TO 10; Start 10/13/16 at 18:30; Stop 10/13/16 at 18:30; Status DC Acetaminophen/ Hydrocodone Bitart ([place] 5-325 Mg) 1 tab Q6H PRN PO PAIN SCALE 1 TO 10 Last administered on 11/07/16 14:03; Start 10/13/16 at 18:45 Cyclobenzaprine HCl (Flexeril) 5 mg HS PRN PO muscle relaxant Last administered on 10/22/16 21:17; Start 10/14/16 at 14:15 Fentanyl Citrate (fentaNYL INJ) 100 mcg STK-MED ONCE .ROUTE ; Start 10/23/16 at 16:51; Stop 10/23/16 at 16:52; Status DC Glycerin (Glycerin Adult Supp) 2 gm ONCE ONCE RECTAL Last administered on 15:29; Start 10/26/16 at 15:00; Stop 10/26/16 at 15:01; Status DC Nitrofurantoin Macrocrystals (Macrobid) 100 mg BIDPC PO Last administered on t 09:36; Start 10/26/16 at 15:00; Stop 10/29/16 at 14:59; Status DC Date of Insertion: Oct 12, 2016 A/P Problem List: (1) CVA (cerebral vascular accident) ICD Code: I63.9 Status: Acute (2) A-fib ICD Code: I48.91 Status: Chronic (3) DM (diabetes mellitus) ICD Code: E11.9 Status: Chronic Assessment and Plan 1. 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 Tracks with his eyes. Continue Keppra for seizure prophylaxis. PT/OT signed off as patient is unable to participate. -Need placement. Difficult. Appreciate case management assistance. 2. Clogged PEG tube on 10/14 and 10/23 status post PEG tube change, tube feedings to Glucerna 1.5 at 50 ml per hour. 3. Chronic respiratory failure -Secondary to CVA. Status post tracheostomy. Continue pulmonary toilet and bronchodilators as needed. Continue trach care, suctioning. Levsin as needed. -Pulmonary currently following . Appreciate assistance. 4. Atrial fibrillation -Continue rate control with Cardizem and metoprolol. Echocardiogram in November 2015 shows preserved ejection fraction. Coumadin discontinued secondary to bleeding. Rate controlled. Continue aspirin and prophylactic heparin dose. 5. History of non-Hodgkin's lymphoma - Status post brain biopsy on December 13 by neurosurgery. Pathology consistent with acute infarct without evidence of lymphoma. Oncology has signed Off 6. Diabetes mellitus -Hemoglobin A1c is 7. Continue Levemir. Monitor Accu-Cheks and cover with sliding scale insulin. Overall blood sugar continues well controlled. 7. Decubitus ulcer stage IV -Continue wound care, twice-daily dressing changes. Wound care recommendations. Continue pressure relief measures including turning and positioning. Patient's family has declined a diverting colostomy. Previous Wound culture growing Klebsiella. on Augmentin. Status post wide excision of sacral skin and biopsy of the cavity lining with debridement on 07/22/16. ID specialist recommended to continue on Amoxicillin and Cefepime for two months will be until the end of September or first days of October. 8. Gastric ulcer, reflux esophagitis - EGD on 07/30/16 showed gastric ulcers. Appreciate GI recommendations. Continue PPI. H&H stable. 9. UTI pseudomonas aeruginosa treated with abx - Resolved. - Repeat Ucx 08/28/16 negative. 10. Constipation: -Having regular bowel movements. -on lactulose. Monitor. 11. Anemia Hemoglobin 9.4 stable DVT prophylaxis on Heparin Discussed with his Mother in the room. Discharge Planning dc planning to SNF-no funding- SSI pending. Problem Qualifiers (1) DM (diabetes mellitus): Qualified Code: E11.9 - Type 2 diabetes mellitus without complications Patsy Wilkes MD Nov 10, 2016 12:25
[2016-11-10] MEDS: ACETIC ACID 0.25% SOLN 1000 ML IRR BTL IRRIGATION SCH ×2 (14:33→21:50)
[2016-11-10] MEDS: SENNOSIDES SYRUP 8.8 MG/5 ML CUP PO SCH (16:00)
[2016-11-10] MEDS: PARoxetine HCL SUSP 20 MG/10 ML UDC PEG SCH (18:02)
[2016-11-10] MEDS: INSULIN DETEMIR 100 UNITS/ML VIAL SQ SCH (21:50)
[2016-11-11] VITALS (8 sets, daily range): BP systolic 106–124; BP diastolic 70–79; PULSE 77–87; RESP 20; TEMP 96.8–98.7; O2SAT 96–100
[2016-11-11] MEDS: FREE WATER TUBE SCH ×6 (04:58→21:10)
[2016-11-11] MEDS: ACETIC ACID 0.25% SOLN 1000 ML IRR BTL IRRIGATION SCH ×3 (05:03→21:11)
[2016-11-11] MEDS: AMOXICILLIN (TRIHYDRATE) 500 MG CAP PO SCH ×3 (05:03→21:08)
[2016-11-11] MEDS: HEPARIN SODIUM - SQ 10,000 UNITS/ML VIAL SQ SCH ×3 (05:03→21:09)
[2016-11-11] MEDS: INSULIN ASPART SUPPLEMENTAL SCALE SQ SCH (07:00)
[2016-11-11] MEDS: METOPROLOL TARTRATE 50 MG TAB PO SCH ×2 (08:06→21:08)
[2016-11-11] MEDS: DILTIAZEM HCL 30 MG TAB PEG SCH ×3 (08:06→21:08)
[2016-11-11] MEDS: ASPIRIN 325 MG TAB TUBE SCH (08:06)
[2016-11-11] MEDS: BACITRACIN TOP OINT 15 GM TUBE TOP SCH ×2 (08:07→21:10)
[2016-11-11] MEDS: NYSTATIN 100,000 U/GM PWD 15 GM BTL TOPICAL SCH ×2 (08:07→21:11)
[2016-11-11] MEDS: KETOCONAZOLE 2% CREAM 15 GM TOPICAL SCH ×2 (08:07→21:11)
[2016-11-11] MEDS: levETIRAcetam 500 MG/5 ML UDC TUBE SCH ×2 (08:07→21:08)
[2016-11-11] MEDS: POTASSIUM CHLORIDE 25 MEQ EFFERVESCENT TAB TUBE SCH (08:07)
[2016-11-11] MEDS: SODIUM CHLORIDE 0.65% NASAL SPRAY 45 ML BTL NASAL SCH ×2 (08:08→21:10)
[2016-11-11] MEDS: ARTIFICIAL TEARS OPTH SOLN 15 ML BTL EACH EYE SCH ×2 (08:08→21:10)
[2016-11-11] MEDS: DOCUSATE SODIUM 100 MG/10 ML UDC PO SCH ×2 (08:17→21:10)
[2016-11-11] MEDS: LACTULOSE SYRUP 20 GM/30 ML CUP PO SCH (08:17)
--- NOTE | 2016-11-11 10:08 | HHI.PR ---
Subjective Remarks f/u for CVA patient continues to be nonverbal and does not follow any plans. no acute events at night. Objective Vitals Vital Signs Date Time Temp Pulse Resp B/P Pulse Ox O2 Delivery O2 Flow Rate FiO2 11/11/16 07:20 97.5 87 20 108/70 96 11/11/16 04:00 98.7 87 20 114/71 96 11/11/16 00:00 98.6 80 20 116/79 100 11/10/16 21:00 83 11/10/16 20:00 95.8 82 20 118/73 100 11/10/16 16:26 97.5 80 20 114/72 98 11/10/16 12:31 97.3 76 20 106/66 99 11/10/16 11:16 80 I/O 11/10/16 11/10/16 11/10/16 11/11/16 11/11/16 11/11/16 07:00 15:00 23:00 07:00 15:00 23:00 Intake Total 400 ml 200 ml 400 ml Output Total 800 ml 800 ml 1025 ml 550 ml Balance -400 ml -800 ml -825 ml -150 ml Intake Oral 0 ml Tube Irrigant 400 ml 200 ml 400 ml Output Urine Total 800 ml 800 ml 1025 ml 550 ml # Bowel Movements 2 2 3 0 Objective Remarks Gen NAD CV RRR. no r//g Resp trach in place CTA B/L abd soft NDNT NEURO patient is sleepy today but can be aroused. Procedures 01/02/16 PEG placement 01/02/16 tracheostomy 07/22/2016 Wide excision of sacral skin wound, biopsy of the cavity lining and debridement. PEG tube replacement 07/29/16 VAC changes- M-W-F 4/5- GJ tube replacement Medications and IVs Current Medications IV Flush (NS Flush) 2 ml UNSCH PRN IVF FLUSH AFTER USING IV ACCESS Last administered on 09/28/16t 21:18; Start 12/21/15 at 06:00 Ondansetron HCl (Zofran Inj) 4 mg STK-MED ONCE .ROUTE ; Start 12/21/15 at 06:22; Stop 12/21/15 at 06:23; Status DC Ondansetron HCl (Zofran Inj) 4 mg ONCE ONCE IV PUSH Last administered on at 06:43; Start 12/21/15 at 06:30; Stop 12/21/15 at 06:31; Status DC Diltiazem HCl 20 mg 20 mg ONCE ONCE IV Last administered on 12/21/15at 06:42; Start 12/21/15 at 06:30; Stop 12/21/15 at 06:31; Status DC Diltiazem HCl/ Sodium Chloride (Cardizem Inj/NS Inj) 125 ml @ 0 mls/hr TITRATE IV Last administered on 12/21/15at 06:47; Start 12/21/15 at 06:30; Stop 12/21/15 at 13:00; Status DC Acetaminophen (Tylenol) 650 mg ONCE ONCE PO ; Start 12/21/15 at 06:45; Stop 12/20 at 06:46; Status DC Lorazepam (Ativan Inj) 1 mg ONCE ONCE IV PUSH Last administered on 12/21/15at 07 :22; Start 12/21/15 at 07:15; Stop 12/21/15 at 07:16; Status DC Etomidate (Amidate Inj) 40 mg STK-MED ONCE .ROUTE Last administered on 08:17; Start 12/21/15 at 07:37; Stop 12/21/15 at 07:38; Status DC Succinylcholine Chloride 200 mg 200 mg STK-MED ONCE .ROUTE Last administered on 12/21/15 08:18; Start 12/21/15 at 07:37; Stop 12/21/15 at 07:38; Status DC Propofol (Diprivan 1000 Mg/100ml Inj) 100 ml @ As Directed STK-MED ONCE .ROUTE Last administered on 12/21/15 08:19; Start 12/21/15 at 07:46; Stop 12/21/15 at 07:47; Status DC Propofol (Diprivan 1000 Mg/100ml Inj) search Sets for Drip. NOW PRN IV SEDATION Last administered on 12/22/15 06:25; Start 12/21/15 at 08:30; Stop 12/28 at 15:43; Status DC Gadodiamide (Omniscan Pf Inj) 18 ml STK-MED ONCE IV Last administered on 10:11; Start 12/21/15 at 10:11; Stop 12/21/15 at 10:12; Status DC Pantoprazole Sodium (Protonix Inj) 40 mg DAILY IV Last administered on at 07:39; Start 12/21/15 at 13:00; Stop 01/03/16 at 10:10; Status DC Albuterol/ Ipratropium (Duoneb Neb) 1 ampule Q6HR NEB INH Last administered on 12/25/15at 07:51; Start 12/21/15 at 13:00; Stop 12/25/15 at 13:00; Status DC Miscellaneous Information 1 [id number] Last administered on 12/21/15at 13:00; Start 12/21/15 at 13:00; Stop 01/12/16 at 11:47; Status DC Chlorhexidine Gluconate (Chlorhexidine 2% Cloth) 3 pack Taper DAILY@04 TOP Last administered on 01/11/16at 04:10; Start 12/22/15 at 04:00; Stop 01/12/16 at 11:47; Status DC Chlorhexidine Gluconate 3 pack 3 pack UNSCH PRN TOP HYGIENIC CARE; Start at 13:00; Stop 01/12/16 at 11:47; Status DC Sodium Chloride (NS 1000 ml Inj) 1,000 ml @ 75 mls/hr [id number] IV Last administered on 12/22/15at 17:00; Start 12/21/15 at 13:00; Stop 12/22/15 at 19:01; Status DC Dextrose (D50w (Vial) Inj) 25 ml UNSCH PRN IV PUSH HYPOGLYCEMIA-SEE COMMENTS; Start 12/21/15 at 13:00; Stop 04/19/16 at 17:19; Status DC Glucagon (Glucagon Inj) 1 mg UNSCH PRN OTHER HYPOGLYCEMIA-SEE COMMENTS; Start 12/21/15 at 13:00; Stop 04/19/16 at 17:19; Status DC Insulin Human Regular (NovoLIN R SUPPLEMENTAL SCALE) 1 Q6H SQ Last administered on 01/04/16at 06:31; Start 12/21/15 at 13:00; Stop 01/04/16 at 10:05 ; Status DC Levetriacetam (Keppra) 500 mg Q12HR PO Last administered on 12/27/15at 09:00; Start 12/21/15 at 13:45; Stop 12/27/15 at 09:44; Status DC Heparin Sodium (Porcine) (Heparin Inj) 5,000 units BID SQ Last administered on 12/22/15at 20:52; Start 12/21/15 at 21:00; Stop 12/23/15 at 08:32; Status DC Warfarin Sodium (Coumadin) 7.5 mg ONCE ONCE PO Last administered on 12/21/15at 21:43; Start 12/21/15 at 21:00; Stop 12/21/15 at 21:01; Status DC Warfarin Sodium (Coumadin) 5 mg DAILY@16 PO Last administered on 12/23/15at 16:00 ; Start 12/22/15 at 16:00; Stop 12/26/15 at 09:29; Status DC Patient Medication Teaching (Coumadin Booklet) 1 ONCE ONCE XX Last administered on 12/21/15at 20:15; Start 12/21/15 at 20:15; Stop 12/21/15 at 20:16; Status DC Chlorhexidine Gluconate (Peridex 0.12% Liq) 15 ml BID@08,20 MT Last administered on 01/12/16at 08:00; Start 12/22/15 at 20:00; Stop 01/12/16 at 11:47 ; Status DC Gadodiamide 20 ml 20 ml STK-MED ONCE IV Last administered on 12/22/15at 09:55; Start 12/22/15 at 09:55; Stop 12/22/15 at 09:56; Status DC Pharmacy Profile Note ml @ 0 mls/hr UNSCH OTHER ; Start 12/22/15 at 11:00; Stop 12/22/15 at 19:43; Status DC Sodium Chloride 1,000 ml @ 50 mls/hr Q20H IV Last administered on 12/24/15at 20: 02; Start 12/22/15 at 18:44; Stop 12/25/15 at 11:52; Status DC Pharmacy Profile Note (Coumadin Consult Pharmacy) 0 ml @ 0 mls/hr UNSCH OTHER ; Start 12/22/15 at 19:45; Stop 01/04/16 at 12:25; Status DC Acetaminophen 650 mg 650 mg Q6H PRN PO TEMP > 100 Last administered on at 13:24; Start 12/23/15 at 02:45; Stop 12/30/15 at 15:04; Status DC Potassium Chloride 100 ml @ 50 mls/hr Q2H PRN IV For Potassium 2.8 - 3.2 mEq/L ; Start 12/23/15 at 08:30; Stop 01/09/16 at 11:14; Status DC Potassium Chloride (KCl 20 Meq Premix Inj) 100 ml @ 50 mls/hr Q2H PRN IV For Potassium 2.8 - 3.2 mEq/L; Start 12/23/15 at 08:30; Stop 01/09/16 at 11:14; Status DC Potassium Chloride 40 meq 40 meq UNSCH PRN PO/TUBE For Potassium 3.3 - 3.5 mEq/ L; Start 12/23/15 at 08:30; Stop 01/09/16 at 11:14; Status DC Potassium Chloride 100 ml @ 25 mls/hr UNSCH PRN IV For Potassium 3.3 - 3.5 mEq /L; Start 12/23/15 at 08:30; Stop 01/09/16 at 11:14; Status DC Potassium Chloride 100 ml @ 50 mls/hr Q2H PRN IV For Potassium 3.3 - 3.5 mEq/L ; Start 12/23/15 at 08:30; Stop 01/09/16 at 11:14; Status DC Magnesium Sulfate/ Sodium Chloride (Magnesium Sulfate Inj/NS Inj) 100 ml @ 50 mls/hr UNSCH PRN IV For Magnesium 0.9 - 1.1 mg/dL; Start 12/23/15 at 08:30; Stop 01/09/16 at 11:14; Status DC Magnesium Oxide 800 mg 800 mg UNSCH PRN PO For Magnesium 1.2 - 1.6 mg/dL; Start 12/23/15 at 08:30; Stop 01/09/16 at 11:14; Status DC Magnesium Sulfate/ Sodium Chloride (Magnesium Sulfate Inj/NS Inj) 100 ml @ 50 mls/hr UNSCH PRN IV For Magnesium 1.2 - 1.6 mg/dL; Start 12/23/15 at 08:30; Stop 01/09/16 at 11:14; Status DC Potassium Phosphate 2000 mg 2,000 mg Q4H PRN PO For Phosphorus < 2.5 mg/dL; Start 12/23/15 at 08:30; Stop 01/09/16 at 11:14; Status DC Sodium Phosphate/ Sodium Chloride (Sodium Phosphate Inj/NS 250 ml Inj) 250 ml @ 42 mls/hr UNSCH PRN IV For Phosphorus < 2.5 mg/dL; Start 12/23/15 at 08:30; Stop 01/09/16 at 11:14; Status DC Potassium Chloride (KCl 40 Meq/30 ml Liq) 40 meq UNSCH PRN PO/TUBE SEE LABEL COMMENTS; Start 12/23/15 at 08:30; Stop 01/09/16 at 11:14; Status DC Potassium Phosphate 2000 mg 2,000 mg UNSCH PRN PO/TUBE SEE LABEL COMMENTS; Start 12/23/15 at 08:30; Stop 01/09/16 at 11:14; Status DC Potassium Phosphate 30 mmol/ Sodium Chloride 260 ml @ 42 mls/hr UNSCH PRN IV SEE LABEL COMMENTS; Start 12/23/15 at 08:30; Stop 01/09/16 at 11:14; Status DC Sodium Chloride 1,000 ml @ 75 mls/hr [id number] IV ; Start 12/23/15 at 08:30; Stop 12/23/15 at 08:30; Status DC Piperacillin Sod/ Tazobactam Sod 50 ml @ 100 mls/hr Q6H IV Last administered on 12/30/15at 10:02; Start 12/23/15 at 10:00; Stop 12/30/15 at 14:50; Status DC Vancomycin HCl/ Sodium Chloride (Vancomycin Inj/ NS 250 ml Inj) 250 ml @ 250 mls/hr Q12H IV Last administered on 12/29/15at 09:01; Start 12/24/15 at 08:45; Stop 12/29/15 at 15:33; Status DC Warfarin Sodium (Coumadin) 4 mg DAILY@16 PO Last administered on 12/28/15at 16:00 ; Start 12/26/15 at 16:00; Stop 01/04/16 at 12:25; Status DC Levetriacetam (Keppra Liq) 500 mg Q12HR TUBE Last administered on 11/11/16t 08 :07; Start 12/27/15 at 21:00 Docusate Sodium (Colace Liq) 100 mg Q12HR TUBE Last administered on 01/15/16at 09:01; Start 12/27/15 at 21:00; Stop 04/16/16 at 08:50; Status DC Sennosides (Senna Liq) 8.8 mg DAILY TUBE Last administered on 01/15/16at 09:01 ; Start 12/27/15 at 17:00; Stop 01/15/16 at 20:37; Status DC Bisacodyl (Dulcolax Supp) 10 mg ONCE ONCE RECTAL ; Start 12/27/15 at 16:15; Stop 12/27/15 at 16:15; Status DC Albuterol/ Ipratropium (Duoneb Neb) 1 ampule Q4HR NEB PRN NEB RESPIRATORY DISTRESS Last administered on 12/29/15at 12:17; Start 12/27/15 at 22:00; Stop at 08:16; Status DC Bisacodyl (Dulcolax Supp) 10 mg ONCE ONCE RECTAL ; Start 12/28/15 at 12:00; Stop 12/28/15 at 12:01; Status DC Sodium Chloride (Sodium Chloride) 1 gm BID TUBE Last administered on 12/29/15at 09:02; Start 12/28/15 at 21:00; Stop 12/29/15 at 15:43; Status DC Lactulose (Lactulose Liq) 30 ml DAILY TUBE Last administered on 12/29/15at 09:02 ; Start 12/28/15 at 20:30; Stop 12/29/15 at 15:43; Status DC Levofloxacin (Levaquin) 750 mg DAILY@16 TUBE ; Start 12/29/15 at 16:00; Stop 05/05 at 16:00; Status DC Sodium Chloride (Sodium Chloride) 1 gm DAILY TUBE Last administered on at 07:29; Start 12/30/15 at 09:00; Stop 12/31/15 at 14:08; Status DC Water 200 ml 200 ml Q6HR G-TUBE Last administered on 12/31/15at 04:19; Start 06/05 at 14:45; Stop 12/31/15 at 07:31; Status DC Ceftriaxone Sodium/Sodium Chloride (Rocephin Inj/NS Inj) 100 ml @ 200 mls/hr Q12H IV Last administered on 01/03/16at 02:47; Start 12/30/15 at 15:00; Stop at 10:09; Status DC Acetaminophen (Tylenol 650 Mg/ 20 ml Liq) 650 mg Q6H PRN TUBE TEMP >100.4 Last administered on 10/25/16t 15:13; Start 12/30/15 at 15:15 Lactobacillus Acidophilus (Lactinex Pkt) 1 gm BID TUBE Last administered on at 09:00; Start 12/30/15 at 21:00; Stop 02/10/16 at 14:30; Status DC Enoxaparin Sodium (Lovenox Inj) 90 mg Q12H SQ Last administered on 01/01/16at 21 :57; Start 12/31/15 at 08:00; Stop 01/03/16 at 10:33; Status DC Water (Free Water) 100 ml Q12H G-TUBE ; Start 12/31/15 at 18:00; Stop 12/31/15 at 18:00; Status DC Acetaminophen/ Hydrocodone Bitart ([place] 5-325 Mg) 1 tab Q6H PRN PO PAIN Last administered on 05/26/16at 20:46; Start 12/31/15 at 15:00; Stop 06/02/16 at 21: 44; Status DC Fentanyl Citrate (Sublimaze Inj) 25 mcg Q1H PRN IV PUSH BREAKTHROUGH PAIN; Start 12/31/15 at 15:00; Stop 03/06/16 at 10:03; Status DC Water (Free Water) 200 ml Q8H G-TUBE Last administered on 01/01/16at 17:55; Start 12/31/15 at 18:00; Stop 01/02/16 at 09:56; Status DC Sodium Chloride (Sodium Chloride) 1 gm BID TUBE Last administered on 01/03/16at 07:39; Start 12/31/15 at 21:00; Stop 01/03/16 at 09:08; Status DC Miscellaneous Information Hold Anticoagulation after midni... ONCE ONCE OTHER ; Start 01/01/16 at 10:15; Stop 01/01/16 at 10:29; Status DC Sodium Chloride (NS 1000 ml Inj) 1,000 ml @ 50 mls/hr Q20H IV Last administered on 01/02/16at 12:26; Start 01/01/16 at 18:00; Stop 01/03/16 at 10:07 ; Status DC Midazolam HCl (Versed Inj) 5 mg STK-MED ONCE .ROUTE ; Start 01/02/16 at 12:47; Stop 01/02/16 at 12:48; Status DC Vecuronium [place] (Norcuron 10 Mg Inj) 10 mg STK-MED ONCE .ROUTE ; Start at 12:47; Stop 01/02/16 at 12:48; Status DC Fentanyl Citrate (Sublimaze Inj) 250 mcg ONCE ONCE IV PUSH Last administered on 01/02/16at 15:00; Start 01/02/16 at 15:00; Stop 01/02/16 at 15:01; Status DC Midazolam HCl (Versed Inj) 10 mg ONCE ONCE IV PUSH Last administered on at 15:00; Start 01/02/16 at 15:00; Stop 01/02/16 at 15:01; Status DC Rocuronium [place] (Zemuron Inj) 100 mg BOLUS ONCE IV Last administered on at 15:00; Start 01/02/16 at 15:00; Stop 01/02/16 at 15:01; Status DC Ketamine HCl (Ketalar Inj) 500 mg STK-MED ONCE .ROUTE ; Start 01/02/16 at 14:30 ; Stop 01/02/16 at 14:31; Status DC Propofol 230 mg 230 mg STK-MED ONCE IV ; Start 01/02/16 at 16:51; Stop 01/02/16 at 16:52; Status DC Sodium Chloride (NS 1000 ml Inj) 1,000 ml @ 0 mls/hr Q0M IV ; Start 01/03/16 at 10:15; Stop 01/17/16 at 17:30; Status DC Ranitidine HCl (Zantac Liq) 150 mg Q12HR PO Last administered on 01/17/16at 07: 39; Start 01/04/16 at 09:00; Stop 01/17/16 at 15:23; Status DC Enoxaparin Sodium 90 mg 90 mg Q12HR SQ Last administered on 01/11/16at 10:01; Start 01/04/16 at 09:00; Stop 01/11/16 at 12:35; Status DC Sodium Chloride (NS 500 ml Inj) 500 ml @ 0 mls/hr BOLUS ONCE IV Last administered on 01/03/16at 22:57; Start 01/03/16 at 23:00; Stop 01/03/16 at 23:01 ; Status DC Insulin Aspart (NovoLOG SUPPLEMENTAL SCALE) 1 Q6HR SQ Last administered on at 12:00; Start 01/04/16 at 12:00; Stop 03/24/16 at 13:58; Status DC Potassium Chloride (KCl 40 Meq/30 ml Liq) 40 meq Q4H NG Last administered on at 16:21; Start 01/04/16 at 13:00; Stop 01/04/16 at 17:01; Status DC Warfarin Sodium 5 mg 5 mg DAILY@1600 PO Last administered on 01/09/16at 17:21; Start 01/04/16 at 16:00; Stop 01/10/16 at 10:06; Status DC Pharmacy Profile Note (Coumadin Consult Pharmacy) 0 ml @ 0 mls/hr UNSCH XX ; Start 01/04/16 at 12:30; Stop 04/20/16 at 12:04; Status DC Insulin Detemir (Levemir Inj) 10 units Q12HR SQ Last administered on 01/05/16at 08:00; Start 01/04/16 at 21:00; Stop 01/05/16 at 08:42; Status DC Insulin Detemir (Levemir Inj) 5 units NOW ONCE SQ Last administered on at 13:28; Start 01/04/16 at 12:45; Stop 01/04/16 at 12:46; Status DC Albuterol/ Ipratropium (Duoneb Neb) 1 ampule Q4HR NEB PRN NEB dyspnea Last administered on 04/19/16at 02:24; Start 01/07/16 at 08:15; Stop 04/25/16 at 18:54 ; Status DC Warfarin Sodium (Coumadin) 7.5 mg ONCE ONCE PO Last administered on 01/07/16at 16:40; Start 01/07/16 at 16:00; Stop 01/07/16 at 16:01; Status DC Nystatin (Mycostatin Powder) 1 applic Q12HR TOPICAL Last administered on t 08:07; Start 01/08/16 at 21:00 Ipratropium [place] (Atrovent Neb) 0.5 mg TID NEB NEB Last administered on 02/20at 13:17; Start 01/08/16 at 20:00; Stop 02/21/16 at 17:52; Status DC Warfarin Sodium (Coumadin) 5 mg DAILY@1600 PO Last administered on 01/11/16at 14 :26; Start 01/11/16 at 16:00; Stop 01/12/16 at 09:45; Status DC Warfarin Sodium (Coumadin) 6 mg ONCE PO Last administered on 01/10/16at 17:10; Start 01/10/16 at 16:00; Stop 01/10/16 at 21:00; Status DC Metoprolol Tartrate (Lopressor) 50 mg Q12HR GT Last administered on 01/11/16at 10:02; Start 01/10/16 at 11:00; Stop 01/11/16 at 12:30; Status DC Metoprolol Tartrate (Lopressor) 50 mg TID GT Last administered on 01/14/16at 08: 24; Start 01/11/16 at 13:00; Stop 01/14/16 at 08:28; Status DC Insulin Detemir (Levemir Inj) 10 units HS SQ Last administered on 01/11/16at 22: 23; Start 01/11/16 at 21:00; Stop 01/12/16 at 11:47; Status DC Warfarin Sodium (Coumadin) 4 mg DAILY@16 PO ; Start 01/12/16 at 16:00; Stop at 16:00; Status DC Insulin Detemir (Levemir Inj) 20 units HS SQ Last administered on 01/13/16at 20: 26; Start 01/12/16 at 21:00; Stop 01/14/16 at 08:28; Status DC Warfarin Sodium (Coumadin) 2 mg DAILY@16 PO Last administered on 01/13/16at 17: 05; Start 01/12/16 at 16:00; Stop 01/14/16 at 11:23; Status DC Insulin Detemir (Levemir Inj) 22 units HS SQ Last administered on 01/14/16at 21: 37; Start 01/14/16 at 21:00; Stop 01/15/16 at 10:06; Status DC Metoprolol Tartrate (Lopressor) 75 mg TID GT Last administered on 03/10/16at 17: 43; Start 01/14/16 at 09:00; Stop 03/10/16 at 21:13; Status DC Miscellaneous (Pill Splitter) 1 ea UNSCH PRN OTHER SEE LABEL COMMENTS; Start at 08:30 Warfarin Sodium (Coumadin) 4 mg DAILY@1600 PO Last administered on 01/21/16at 16: 51; Start 01/14/16 at 16:00; Stop 01/23/16 at 09:29; Status DC Patient Medication Teaching (Coumadin Booklet) 1 ONCE ONCE XX ; Start 01/14/16 at 16:00; Stop 01/14/16 at 16:01; Status DC Insulin Detemir (Levemir Inj) 24 units HS SQ Last administered on 03/04/16at 21: 09; Start 01/15/16 at 21:00; Stop 03/05/16 at 11:17; Status DC Citalopram Hydrobromide (CeleXA) 20 mg DAILY PEG Last administered on at 08:01; Start 01/16/16 at 09:00; Stop 01/16/16 at 09:41; Status DC Sennosides (Senna Liq) 8.8 mg BID TUBE Last administered on 02/20/16at 08:32; Start 01/15/16 at 21:00; Stop 02/20/16 at 16:13; Status DC Gadodiamide 18 ml 18 ml STK-MED ONCE IV ; Start 01/16/16 at 20:40; Stop at 20:41; Status DC Sodium Chloride (NS 1000 ml Inj) 1,000 ml @ 125 mls/hr Q8H IV Last administered on 01/17/16at 15:11; Start 01/17/16 at 15:00; Stop 01/17/16 at 17:31 ; Status DC Ranitidine HCl 150 mg 150 mg Q24H PO Last administered on 07/28/16t 08:54; Start 01/18/16 at 09:00; Stop 07/30/16 at 10:05; Status DC Sodium Chloride 1,000 ml @ 75 mls/hr [id number] IV Last administered on at 05:22; Start 01/17/16 at 18:00; Stop 01/18/16 at 09:28; Status DC Sodium Chloride/ Sterile Water (Sodium Chloride 23.4% Inj/Sterile Water For Inj ) 1,009.625 ml @ 60 mls/hr [id number] IV Last administered on 01/21/16at 22:46; Start 01/18/16 at 11:00; Stop 01/22/16 at 10:09; Status DC Potassium Chloride (KCl) 40 meq ONCE ONCE PO ; Start 01/18/16 at 09:30; Stop at 09:31; Status DC Potassium Chloride (KCl 40 Meq/30 ml Liq) 40 meq ONCE ONCE TUBE Last administered on 01/18/16at 11:08; Start 01/18/16 at 11:00; Stop 01/18/16 at 11:01 ; Status DC Water (Free Water) 300 ml Q4HR TUBE Last administered on 01/19/16at 08:00; Start 01/18/16 at 12:00; Stop 01/19/16 at 10:43; Status DC Water (Free Water) 400 ml Q4HR TUBE Last administered on 04/16/16at 04:00; Start 01/19/16 at 12:00; Stop 04/16/16 at 09:09; Status DC Potassium Chloride (KCl 40 Meq/30 ml Liq) 40 meq ONCE ONCE NG Last administered on 01/19/16at 11:41; Start 01/19/16 at 11:00; Stop 01/19/16 at 11:01; Status DC Potassium Chloride 60 meq 60 meq ONCE ONCE PO/TUBE Last administered on at 13:30; Start 01/21/16 at 11:15; Stop 01/21/16 at 11:27; Status DC Sodium Chloride (1/2 NS 1000 ml Inj) 1,000 ml @ 30 mls/hr Q24H IV Last administered on 02/06/16at 11:26; Start 01/22/16 at 11:00; Stop 02/07/16 at 14:49 ; Status DC Warfarin Sodium (Coumadin) 3 mg DAILY@16 PO Last administered on 01/23/16at 17:19 ; Start 01/23/16 at 16:00; Stop 01/24/16 at 14:05; Status DC Warfarin Sodium (Coumadin) 3 mg DAILY@16 PO Last administered on 01/25/16at 15:59 ; Start 01/25/16 at 16:00; Stop 01/26/16 at 15:04; Status DC Warfarin Sodium (Coumadin) 4 mg ONCE@1600 ONCE PO Last administered on at 16:55; Start 01/24/16 at 16:00; Stop 01/24/16 at 16:01; Status DC Warfarin Sodium (Coumadin) 3 mg DAILY@16 PO ; Start 01/27/16 at 16:00; Stop at 16:00; Status DC Warfarin Sodium (Coumadin) 4 mg ONCE@1600 ONCE PO Last administered on at 16:52; Start 01/26/16 at 16:00; Stop 01/26/16 at 16:01; Status DC Potassium Chloride (KCl 40 Meq/30 ml Liq) 80 meq ONCE ONCE PO Last administered on 01/27/16at 07:45; Start 01/27/16 at 07:45; Stop 01/27/16 at 08:10; Status DC Warfarin Sodium (Coumadin) 4 mg DAILY@16 PO Last administered on 02/02/16at 17: 22; Start 01/27/16 at 16:00; Stop 02/03/16 at 11:37; Status DC Acetic Acid (Acetic Acid 0.25% Irr Btl) 10 ml Q8HR IRRIGATION Last administered on 02/05/16at 06:00; Start 01/28/16 at 22:00; Stop 02/05/16 at 15:51 ; Status DC Warfarin Sodium 3 mg 3 mg DAILY@1600 PO Last administered on 02/11/16at 17:34; Start 02/03/16 at 16:00; Stop 02/12/16 at 12:45; Status DC Ceftriaxone Sodium/Sodium Chloride (Rocephin Inj/NS Inj) 100 ml @ 200 mls/hr Q24H IV Last administered on 02/10/16at 05:23; Start 02/05/16 at 06:30; Stop at 14:32; Status DC Acetic Acid (Acetic Acid 0.25% Irr Btl) 10 ml Q8HR IRRIGATION ; Start 02/05/16 at 16:00; Status Cancel Acetic Acid (Acetic Acid 0.25% Irr Btl) 10 ml Q8HR IRRIGATION Last administered on 11/11/16t 05:03; Start 02/05/16 at 16:00 Lactobacillus Acidophilus (Lactinex) 1 tab Q12HR PO Last administered on at 08:25; Start 02/10/16 at 21:00; Stop 02/12/16 at 16:05; Status DC Warfarin Sodium (Coumadin) 4 mg DAILY@1600 PO Last administered on 02/14/16at 15 :56; Start 02/12/16 at 16:00; Stop 02/15/16 at 10:17; Status DC Paroxetine HCl (Paxil Liq) 20 mg DAILY PEG Last administered on 02/25/16at 07:33 ; Start 02/16/16 at 09:00; Stop 02/25/16 at 10:36; Status DC Warfarin Sodium (Coumadin) 3 mg DAILY@1600 PO Last administered on 02/19/16at 16: 42; Start 02/15/16 at 16:00; Stop 02/20/16 at 08:50; Status DC Warfarin Sodium (Coumadin) 4 mg DAILY@16 PO Last administered on 02/21/16at 15:54 ; Start 02/20/16 at 16:00; Stop 02/22/16 at 08:46; Status DC Sennosides (Senna Liq) 8.8 mg DAILY TUBE Last administered on 05/26/16at 08:14 ; Start 02/21/16 at 09:00; Stop 05/27/16 at 11:51; Status DC Albuterol Sulfate (Albuterol Neb) 2.5 mg QID NEB INH Last administered on at 19:51; Start 02/21/16 at 20:00; Stop 02/25/16 at 20:00; Status DC Acetylcysteine (Mucomyst 10% Neb) 1 ml QID NEB NEB Last administered on at 16:32; Start 02/21/16 at 20:00; Stop 02/23/16 at 16:01; Status DC Warfarin Sodium (Coumadin) 3 mg DAILY@16 PO Last administered on 02/22/16at 15:59 ; Start 02/22/16 at 16:00; Stop 02/23/16 at 08:56; Status DC Warfarin Sodium (Coumadin) 3 mg DAILY@16 PO Last administered on 02/28/16at 16: 17; Start 02/24/16 at 16:00; Stop 8/11/16 at 10:04; Status DC Warfarin Sodium (Coumadin) 2 mg ONCE PO Last administered on 02/23/16at 16:22; Start 02/23/16 at 16:00; Stop 02/23/16 at 21:00; Status DC Paroxetine HCl (Paxil Liq) 20 mg DAILY@1900 PEG Last administered on 03/08/16at 18:11; Start 02/26/16 at 19:00; Stop 03/09/16 at 11:31; Status DC Warfarin Sodium (Coumadin) 3 mg DAILY@16 PO Last administered on 03/06/16at 16: 22; Start 03/01/16 at 16:00; Stop 03/09/16 at 10:30; Status DC Warfarin Sodium (Coumadin) 1 mg ONCE PO Last administered on 02/29/16at 17:28; Start 02/29/16 at 16:00; Stop 02/29/16 at 21:00; Status DC Insulin Detemir (Levemir Inj) 27 units HS SQ Last administered on 03/05/16at 20: 25; Start 03/05/16 at 21:00; Stop 03/06/16 at 10:03; Status DC Patient Medication Teaching (Coumadin Booklet) 1 ONCE ONCE XX Last administered on 03/05/16at 16:00; Start 03/05/16 at 16:00; Stop 03/05/16 at 16:01 ; Status DC Insulin Detemir (Levemir Inj) 30 units HS SQ Last administered on 03/21/16at 22: 32; Start 03/06/16 at 21:00; Stop 03/22/16 at 14:48; Status DC Trimethoprim/ Sulfamethoxazole (Bactrim 800-160 Mg/20 ml Liq) 20 ml Q12HR PO Last administered on 03/14/16at 08:01; Start 03/07/16 at 11:15; Stop 03/14/16 at 11:14; Status DC Lorazepam (Ativan Inj) 0.5 mg Q4H PRN IV PUSH seizures or agitation; Start at 23:00 Metronidazole (Flagyl) 500 mg Q8H PO Last administered on 03/14/16at 15:51; Start 03/08/16 at 17:00; Stop 03/14/16 at 23:00; Status DC Warfarin Sodium (Coumadin) 2 mg DAILY@16 PO Last administered on 03/09/16at 17: 20; Start 03/09/16 at 16:00; Stop 03/10/16 at 10:33; Status DC Paroxetine HCl (Paxil) 20 mg DAILY@1900 PEG Last administered on 03/11/16at 17: 55; Start 03/09/16 at 19:00; Stop 03/12/16 at 08:31; Status DC Warfarin Sodium 3 mg 3 mg DAILY@16 PO Last administered on 04/12/16at 15:28; Start 03/10/16 at 16:00; Stop 04/12/16 at 16:39; Status DC Pharmacy Profile Note 0 ml @ 0 mls/hr UNSCH OTHER ; Start 03/10/16 at 14:15; Stop 03/18/16 at 11:33; Status DC Vancomycin HCl/ Sodium Chloride (Vancomycin Inj/ NS 500 ml Inj) 530 ml @ 265 mls/hr Q12H IV Last administered on 03/17/16at 16:26; Start 03/10/16 at 16:00; Stop 03/17/16 at 23:00; Status DC Miscellaneous Information SPECIFIC LAB TO BE .. ONCE ONCE XX Last administered on 03/12/16at 04:45; Start 03/12/16 at 03:45; Stop 03/12/16 at 03:46 ; Status DC Metoprolol Tartrate (Lopressor) 75 mg Q8HR PO Last administered on 04/02/16at 13 :13; Start 03/10/16 at 22:00; Stop 04/02/16 at 17:31; Status DC Paroxetine HCl (Paxil Liq) 20 mg DAILY@1900 PEG Last administered on 11/10/16t 18:02; Start 03/12/16 at 19:00 Warfarin Sodium (Coumadin) 1 mg ONCE PO Last administered on 03/21/16at 16:24; Start 03/21/16 at 16:00; Stop 03/21/16 at 21:00; Status DC Warfarin Sodium (Coumadin) 1 mg ONCE PO Last administered on 03/22/16at 17:46; Start 03/22/16 at 16:00; Stop 03/22/16 at 21:00; Status DC Insulin Detemir (Levemir Inj) 32 units HS SQ Last administered on 03/22/16at 20: 18; Start 03/22/16 at 21:00; Stop 03/23/16 at 13:35; Status DC Diltiazem HCl (Cardizem Cd) 120 mg DAILY PO Last administered on 04/14/16at 07: 43; Start 03/22/16 at 16:00; Stop 04/14/16 at 14:39; Status DC Hyoscyamine Sulfate (Levsin Liq) 0.125 mg Q4H PRN PEG INCREASED SECRETIONS Last administered on 04/10/16at 08:05; Start 03/22/16 at 15:15; Stop 04/11/16 at 10:24; Status DC Warfarin Sodium (Coumadin) 2 mg ONCE ONCE PO Last administered on 03/23/16at 17: 26; Start 03/23/16 at 16:00; Stop 03/23/16 at 16:01; Status DC Insulin Detemir (Levemir Inj) 34 units HS SQ Last administered on 03/23/16at 20: 01; Start 03/23/16 at 21:00; Stop 03/24/16 at 13:53; Status DC Insulin Detemir (Levemir Inj) 35 units HS SQ Last administered on 11/10/16t 21: 50; Start 03/24/16 at 21:00 Insulin Aspart (NovoLOG SUPPLEMENTAL SCALE) 1 ACHS SLIDING SCALE SQ Last administered on 04/16/16at 22:27; Start 03/24/16 at 16:00; Stop 04/19/16 at 17:19 ; Status DC Warfarin Sodium (Coumadin) 1 mg ONCE ONCE PO Last administered on 03/30/16at 16 :59; Start 03/30/16 at 16:00; Stop 03/30/16 at 16:01; Status DC Potassium Chloride (KCl 40 Meq/30 ml Liq) 40 meq ONCE ONCE NG Last administered on 03/31/16at 21:28; Start 03/31/16 at 18:30; Stop 03/31/16 at 18:31 ; Status DC Potassium Bicarb/ Potassium Chloride (K-Lyte Cl Eff) 25 meq ONCE ONCE PEG Last administered on 04/02/16at 12:01; Start 04/02/16 at 13:00; Stop 04/02/16 at 13:01; Status DC Metoprolol Tartrate (Lopressor) 75 mg BID PO Last administered on 05/28/16at 21: 03; Start 04/02/16 at 21:00; Stop 05/29/16 at 11:21; Status DC Potassium Bicarb/ Potassium Chloride (K-Lyte Cl Eff) 25 meq ONCE ONCE PEG Last administered on 04/04/16at 14:40; Start 04/04/16 at 12:30; Stop 04/04/16 at 12:31; Status DC Linezolid (Zyvox) 600 mg Q12HR PO Last administered on 04/16/16at 09:11; Start 04/05/16 at 15:00; Stop 04/16/16 at 12:00; Status DC Artificial Tears (Lacrilube Opht Oint) 1 applic Q12HR EACH EYE Last administered on 09/04/16 21:00; Start 04/10/16 at 11:00; Stop 09/05/16 at 14:38 ; Status DC Hyoscyamine Sulfate (Levsin) 0.25 mg Q4H PRN G-TUBE INCREASED SECRETIONS Last administered on 08/31/16 05:02; Start 04/11/16 at 10:30 Diatrizoate Meglum/ Diatrizoate Sod ( Gastroview Liq) 18 ml ONCE ONCE PO Last administered on 04/12/16at 16:45; Start 04/12/16 at 16:15; Stop 04/12/16 at 16:16; Status DC Warfarin Sodium (Coumadin) 3 mg DAILY@16 PO ; Start 04/13/16 at 16:00; Stop 05/27/16 at 11:51; Status DC Iohexol (Omnipaque 350 Inj) 98 ml STK-MED ONCE IV Last administered on at 21:01; Start 04/12/16 at 21:01; Stop 04/12/16 at 21:02; Status DC Diltiazem HCl (Cardizem Cd) 180 mg DAILY PO ; Start 04/15/16 at 09:00; Stop at 08:50; Status DC Ondansetron HCl (Zofran Inj) 4 mg Q6HR PRN IV PUSH nausea/vomiting Last administered on 08/10/16 10:16; Start 04/14/16 at 19:45 Diltiazem HCl 60 mg 60 mg QID PO Last administered on 04/25/16at 17:26; Start at 13:00; Stop 04/25/16 at 19:06; Status DC Sodium Chloride 500 ml @ 500 mls/hr BOLUS ONCE IV Last administered on at 09:15; Start 04/15/16 at 09:15; Stop 04/15/16 at 10:14; Status DC Potassium Chloride/Dextrose/ Sodium Chloride (KCl Inj/D5W-NS 1000 ml Inj) 1,005 ml @ 100 mls/hr Q10H3M IV Last administered on 04/15/16at 21:03; Start at 11:00; Stop 04/16/16 at 09:09; Status DC Enoxaparin Sodium (Lovenox Inj) 90 mg Q12H SQ Last administered on 04/16/16at 21 :12; Start 04/16/16 at 09:00; Stop 04/17/16 at 10:37; Status DC Water 200 ml 200 ml Q4HR TUBE Last administered on 11/11/16 08:08; Start 04/16 at 12:00 Sodium Chloride 1,000 ml @ 84 mls/hr [id number] IV Last administered on at 08:38; Start 04/16/16 at 10:00; Stop 04/20/16 at 12:04; Status DC Ceftriaxone Sodium/Sodium Chloride (Rocephin Inj/NS Inj) 100 ml @ 200 mls/hr Q24H IV Last administered on 05/02/16at 13:19; Start 04/16/16 at 12:00; Stop 05/03/16 at 12:06; Status DC Acetaminophen/ Hydrocodone Bitart ([place] 5-325 Mg) 1 tab Q6HR PEG Last administered on 09/17/16 06:42; Start 04/18/16 at 18:00; Stop 09/17/16 at 09:17 ; Status DC Lactulose (Lactulose Liq) 30 ml NOW ONCE PEG Last administered on 04/19/16at 17 :21; Start 04/19/16 at 17:30; Stop 04/19/16 at 17:31; Status DC Lactulose (Lactulose Liq) 30 ml DAILY PEG Last administered on 05/26/16at 08:14 ; Start 04/20/16 at 09:00; Stop 05/27/16 at 11:39; Status DC Potassium Bicarb/ Potassium Chloride (K-Lyte Cl Eff) 50 meq ONCE ONCE PO Last administered on 04/20/16at 05:52; Start 04/20/16 at 05:45; Stop 04/20/16 at 05:46; Status DC Furosemide (Lasix Inj) 20 mg ONCE ONCE IV PUSH Last administered on 04/20/16at 17:35; Start 04/20/16 at 12:00; Stop 04/20/16 at 12:06; Status DC Insulin Aspart (NovoLOG SUPPLEMENTAL SCALE) 1 ACHS SLIDING SCALE SQ Last administered on 06/02/16at 12:10; Start 04/20/16 at 16:00; Stop 06/02/16 at 21: 44; Status DC Dextrose (D50w (Vial) Inj) 25 ml UNSCH PRN IV HYPOGLYCEMIA-SEE COMMENTS; Start 04/20/16 at 12:00 Glucagon (Glucagon Inj) 1 mg UNSCH PRN IM/SQ HYPOGLYCEMIA-SEE COMMENTS; Start 04/20/16 at 12:00 Lactobacillus Acidophilus (Lactinex) 1 tab Q12HR PEG Last administered on 06/06at 21:34; Start 04/22/16 at 09:00; Stop 06/07/16 at 09:32; Status DC Furosemide (Lasix Inj) 20 mg Q12H IV PUSH Last administered on 04/24/16at 08:52 ; Start 04/22/16 at 09:00; Stop 04/24/16 at 09:25; Status DC Potassium Bicarb/ Potassium Chloride (K-Lyte Cl Eff) 25 meq Q12HR TUBE Last administered on 05/27/16at 08:17; Start 04/22/16 at 09:00; Stop 05/27/16 at 11:51 ; Status DC Albumin Human (Albumin 25% Inj) 12.5 gm Q12H IV Last administered on 04/24/16at 08:46; Start 04/22/16 at 09:00; Stop 04/24/16 at 09:25; Status DC Furosemide (Lasix Inj) 20 mg DAILY IV PUSH Last administered on 05/08/16at 09: 01; Start 04/25/16 at 09:00; Stop 05/08/16 at 11:06; Status DC Albumin Human (Albumin 25% Inj) 12.5 gm DAILY IV Last administered on at 09:02; Start 04/25/16 at 10:00; Stop 05/08/16 at 11:06; Status DC Furosemide (Lasix Inj) 40 mg ONCE ONCE IV PUSH Last administered on 04/25/16at 18:15; Start 04/25/16 at 18:15; Stop 04/25/16 at 18:16; Status DC Albuterol/ Ipratropium (Duoneb Neb) 1 ampule Q6HR NEB NEB Last administered on 04/27/16at 15:52; Start 04/25/16 at 18:30; Stop 04/27/16 at 19:45; Status DC Ipratropium [place] (Atrovent Neb) 0.5 mg Q6HR NEB NEB Last administered on at 16:51; Start 04/25/16 at 22:00; Stop 04/27/16 at 16:44; Status DC Levalbuterol HCl (Xopenex Neb) 0.31 mg Q4HR NEB NEB Last administered on at 23:48; Start 04/25/16 at 20:00; Stop 04/27/16 at 16:43; Status DC Levalbuterol HCl (Xopenex Neb) 0.31 mg Q2HR NEB PRN NEB SHORTNESS OF BREATH; Start 04/25/16 at 18:45; Stop 04/28/16 at 10:50; Status DC Diltiazem HCl (Cardizem) 90 mg QID PEG Last administered on 07/17/16at 09:27; Start 04/25/16 at 21:00; Stop 07/17/16 at 17:52; Status DC Diltiazem HCl (Cardizem) 30 mg NOW ONCE PEG Last administered on 04/25/16at 21: 36; Start 04/25/16 at 19:15; Stop 04/25/16 at 19:16; Status DC Levalbuterol HCl (Xopenex Neb) 0.31 mg Q8HR NEB NEB ; Start 04/28/16 at 00:00; Stop 04/28/16 at 10:50; Status DC Levalbuterol HCl (Xopenex Neb) 0.63 mg Q4HR NEB PRN NEB SHORTNESS OF BREATH Last administered on 05/04/16at 15:26; Start 04/28/16 at 11:00; Stop 05/04/16 at 00:51; Status DC Levalbuterol HCl (Xopenex Neb) 0.63 mg Q8HR NEB NEB Last administered on 05/04at 00:07; Start 04/28/16 at 16:00; Stop 05/04/16 at 00:50; Status DC Polyethylene Glycol/ Electrolytes 4000 ml 4,000 ml ONCE ONCE PO Last administered on 05/05/16at 08:10; Start 05/05/16 at 08:45; Stop 05/05/16 at 08 :46; Status DC Cefazolin Sodium/ Dextrose 50 ml @ 100 mls/hr ONCE ONCE IV ; Start 05/06/16 at 14:00; Stop 05/06/16 at 14:29; Status DC Metronidazole 100 ml @ 100 mls/hr ONCE ONCE IV Last administered on at 14:00; Start 05/06/16 at 14:00; Stop 05/06/16 at 14:59; Status DC Ceftriaxone Sodium/Sodium Chloride (Rocephin Inj/NS Inj) 100 ml @ 200 mls/hr Q24H IV Last administered on 06/09/16at 12:36; Start 05/03/16 at 12:00; Stop 06/10/16 at 12:48; Status DC Levalbuterol HCl (Xopenex Neb) 0.63 mg Q8HR NEB NEB Last administered on 05/05at 08:00; Start 05/04/16 at 00:49; Stop 05/05/16 at 08:07; Status DC Levalbuterol HCl (Xopenex Neb) 0.63 mg Q4HR NEB PRN NEB SHORTNESS OF BREATH Last administered on 10/18/16t 15:44; Start 05/05/16 at 12:00 Levalbuterol HCl (Xopenex Neb) 0.63 mg Q8HR NEB NEB Last administered on 05/08at 23:56; Start 05/05/16 at 08:15; Stop 05/09/16 at 08:15; Status DC Potassium Bicarb/ Potassium Chloride (K-Lyte Cl Eff) 25 meq DAILY TUBE Last administered on 11/11/16 08:07; Start 05/28/16 at 09:00 Aspirin (Aspirin) 325 mg DAILY TUBE Last administered on 11/11/16 08:06; Start 05/27/16 at 11:40 Docusate Sodium (Colace Liq) 100 mg DAILY PRN PO constipation Last administered on 08/16/16 21:09; Start 05/27/16 at 11:45; Stop 08/31/16 at 09:00 ; Status DC Metoprolol Tartrate (Lopressor) 50 mg BID PO Last administered on 08/23/16 09: 03; Start 05/29/16 at 21:00; Stop 08/23/16 at 15:33; Status DC Acetaminophen/ Hydrocodone Bitart ([place] 5-325 Mg) 1 tab Q6H PRN TUBE BREAKTHROUGH PAIN Last administered on 08/02/16 15:11; Start 06/03/16 at 03:00 ; Stop 09/17/16 at 14:33; Status DC Insulin Aspart (NovoLOG SUPPLEMENTAL SCALE) 1 ACHS SLIDING SCALE SQ Last administered on 06/06/16at 21:35; Start 06/03/16 at 07:00; Stop 06/07/16 at 12 :24; Status DC Lactobacillus Acidophilus (Lactinex) 1 tab TID PEG Last administered on 09:13; Start 06/07/16 at 13:00; Stop 10/13/16 at 12:08; Status DC Insulin Aspart 1 1 AC BREAKFAST SQ Last administered on 11/05/16 07:00; Start 06/08/16 at 07:00 Ceftriaxone Sodium/Sodium Chloride (Rocephin Inj/NS Inj) 100 ml @ 200 mls/hr Q24H IV Last administered on 07/28/16 12:19; Start 06/10/16 at 12:00; Stop 07/29/16 at 13:30; Status DC Heparin Sodium (Porcine) (Heparin Inj) 5,000 units Q12HR SQ Last administered on 06/11/16at 00:58; Start 06/10/16 at 14:15; Stop 06/11/16 at 06:21; Status DC Heparin Sodium (Porcine) (Heparin Inj) 5,000 units Q8HR SQ Last administered on 11/11/16 05:03; Start 06/11/16 at 14:00 Diltiazem HCl (Cardizem) 30 mg QID PEG Last administered on 08/16/16 08:31; Start 07/17/16 at 18:00; Stop 08/16/16 at 12:06; Status DC Bacitracin 1 applic 1 applic BID TOP Last administered on 11/11/16 08:07; Start 07/20/16 at 10:00 Lactated Ringer's 1,000 ml @ 30 mls/hr Q24H IV ; Start 07/21/16 at 17:45; Stop 08/14/16 at 12:08; Status DC Sodium Chloride (NS 500 ml Inj) 500 ml @ 30 mls/hr [id number] IV ; Start 07/21/16 at 17:45; Stop 07/22/16 at 17:44; Status DC Insulin Human Regular (NovoLIN R INJ) See Protocol Table ... UNSCH X1 PRN SQ SEE PROTOCOL; Start 07/21/16 at 17:45; Stop 07/22/16 at 17:44; Status DC Metoprolol Tartrate (Lopressor) 25 mg UNSCH X1 PRN PO SEE LABEL COMMENTS; Start 07/21/16 at 17:45; Stop 07/22/16 at 17:44; Status DC Lidocaine/ Epinephrine (Xylocaine-Epi 1%-1:100,000 Inj) 40 ml STK-MED ONCE .ROUTE Last administered on 07/22/16 10:56; Start 07/22/16 at 10:04; Stop at 10:05; Status DC Ketamine HCl (Ketalar Inj) 500 mg STK-MED ONCE .ROUTE ; Start 07/22/16 at 10:50; Stop 07/22/16 at 10:51; Status DC Propofol 600 mg 600 mg STK-MED ONCE IV ; Start 07/22/16 at 12:00; Stop 07/23/16 at 14:36; Status DC Dextrose 1,000 ml @ 40 mls/hr Q24H ONCE IV Last administered on 07/28/16 14:33 ; Start 07/28/16 at 14:00; Stop 07/29/16 at 13:59; Status DC Ampicillin Sodium/ Sulbactam Sodium/ Sodium Chloride (Unasyn Inj/NS Inj) 100 ml @ 200 mls/hr Q6H IV Last administered on 08/01/16 12:30; Start 07/29/16 at 14: 00; Stop 08/01/16 at 14:13; Status DC Ondansetron HCl 4 mg 4 mg ONCE ONCE IV PUSH Last administered on 07/30/16 02: 46; Start 07/30/16 at 00:30; Stop 07/30/16 at 00:33; Status DC Lactated Ringer's 1,000 ml @ 30 mls/hr Q24H IV ; Start 07/30/16 at 06:00; Stop 08/14/16 at 12:09; Status DC Sodium Chloride (NS 500 ml Inj) 500 ml @ 30 mls/hr [id number] IV ; Start 07/30/16 at 06:00; Stop 07/31/16 at 05:59; Status DC Pantoprazole Sodium (Protonix Inj) 40 mg Q12H IV PUSH Last administered on 11/10 21:49; Start 07/30/16 at 10:15 Propofol 200 mg 200 mg STK-MED ONCE IV ; Start 07/30/16 at 09:41; Stop 07/30/16 at 10:19; Status DC Piperacillin Sod/ Tazobactam Sod (Zosyn 4.5 Gm Premix) 100 ml @ 200 mls/hr Q6H IV Last administered on 08/07/16 09:37; Start 08/01/16 at 16:00; Stop at 16:10; Status DC Linezolid (Zyvox) 600 mg Q12HR PO Last administered on 08/22/16 09:10; Start at 21:00; Stop 08/22/16 at 15:55; Status DC Sodium Chloride ([place]) 1 spray BID NASAL Last administered on 08:08; Start 08/01/16 at 21:00 Metronidazole 500 mg 500 mg Q8H PO Last administered on 08/08/16 08:28; Start 08/07/16 at 16:00; Stop 08/08/16 at 16:10; Status DC Sodium Chloride (NS 1000 ml Inj) 1,000 ml @ 42 mls/hr [id number] IV Last administered on 08/14/16 12:44; Start 08/14/16 at 12:00; Stop 08/15/16 at 10:56 ; Status DC Fentanyl Citrate (fentaNYL INJ) 250 mcg STK-MED ONCE .ROUTE Last administered on 08/14/16 15:36; Start 08/14/16 at 15:36; Stop 08/14/16 at 15:37; Status DC Iohexol (Omnipaque 350 Inj) 30 ml STK-MED ONCE G-TUBE Last administered on 08/14 15:45; Start 08/14/16 at 15:52; Stop 08/14/16 at 15:53; Status DC Diltiazem HCl (Cardizem) 30 mg QID PEG Last administered on 11/11/16 08:06; Start 08/16/16 at 13:00 Polyethylene Glycol (Miralax) 17 gm ONCE ONCE PEG Last administered on 11:32; Start 08/17/16 at 12:00; Stop 08/17/16 at 12:01; Status DC Amoxicillin 500 mg 500 mg Q8HR PO Last administered on 11/11/16 05:03; Start 08/22/16 at 22:00 Cefepime HCl/ Sodium Chloride (Maxipime Inj/NS Inj) 100 ml @ 200 mls/hr Q8H IV Last administered on 09/03/16 10:46; Start 08/23/16 at 16:00; Stop 09/03/16 at 15:02; Status DC Metoprolol Tartrate (Lopressor) 75 mg BID PO Last administered on 09/13/16 08: 42; Start 08/23/16 at 21:00; Stop 09/13/16 at 13:09; Status DC Docusate Sodium (Colace Liq) 100 mg BID PO Last administered on 11/10/16 08:15 ; Start 08/30/16 at 21:00 Sennosides (Senokot) 17.2 mg DAILY PO Last administered on 09/25/16 08:36; Start 08/30/16 at 14:00; Stop 09/25/16 at 16:09; Status DC Lactulose (Lactulose Liq) 30 ml DAILY PO Last administered on 11/10/16 08:16; Start 09/02/16 at 15:30 Artificial Tears (Tears Naturale Opth Soln) 1 drop BID EACH EYE Last administered on 11/11/16 08:08; Start 09/05/16 at 21:00 Midazolam HCl (Versed Inj) 2 mg STK-MED ONCE .ROUTE Last administered on 11:37; Start 09/09/16 at 11:37; Stop 09/09/16 at 11:38; Status DC Fentanyl Citrate (fentaNYL INJ) 100 mcg STK-MED ONCE .ROUTE Last administered on 09/09/16 11:38; Start 09/09/16 at 11:38; Stop 09/09/16 at 11:39; Status DC Iohexol (Omnipaque 350 Inj) 20 ml STK-MED ONCE G-TUBE Last administered on 09/09 11:50; Start 09/09/16 at 11:50; Stop 09/09/16 at 12:15; Status DC Metoprolol Tartrate (Lopressor) 50 mg BID PO Last administered on 11/11/16 08: 06; Start 09/13/16 at 21:00 Acetaminophen/ Hydrocodone Bitart ([place] 5-325 Mg) 1 tab Q6H PEG ; Start at 11:00; Stop 09/17/16 at 14:25; Status DC Acetaminophen/ Hydrocodone Bitart ([place] 5-325 Mg) 1 tab DAILY@1600 PO ; Start 09/17/16 at 16:00; Stop 09/17/16 at 16:00; Status DC Morphine Sulfate (Morphine Inj) 1 mg Q24H PRN IV PUSH dressing change 30 min before Last administered on 10/22/16 02:00; Start 09/17/16 at 14:30 Acetaminophen/ Hydrocodone Bitart ([place] 5-325 Mg) 1 tab DAILY@0000 PO Last administered on 09/17/16 23:43; Start 09/18/16 at 00:00; Stop 09/20/16 at 12:46; Status DC Acetaminophen/ Hydrocodone Bitart ([place] 5-325 Mg) 1 tab Q8H PO Last administered on 10/13/16 13:38; Start 09/20/16 at 13:00; Stop 10/13/16 at 18:29 ; Status DC Ketoconazole (Niz[place] 2% Cream) 1 applic Q12HR TOPICAL Last administered on 08:07; Start 09/24/16 at 21:00 Sennosides (Senna Liq) 8.8 mg DAILY@1600 PO Last administered on 11/09/16 16: 01; Start 09/25/16 at 17:00 Sodium Biphosphate/ Sodium Phosphate (Fleets Enema (Adult)) 133 ml UNSCH PRN LA CONSTIPATION; Start 09/25/16 at 16:00 Bisacodyl (Dulcolax Supp) 10 mg DAILY PRN RECTAL CONSTIPATION Last administered on 10/20/16 12:53; Start 09/26/16 at 15:30 Bisacodyl (Dulcolax Supp) 10 mg ONCE ONCE RECTAL Last administered on 16:10; Start 09/26/16 at 15:30; Stop 09/26/16 at 15:31; Status DC Cyclobenzaprine HCl (Flexeril) 5 mg Q8H PO Last administered on 10/13/16 13:37 ; Start 10/13/16 at 12:15; Stop 10/13/16 at 18:27; Status DC Magnesium Hydroxide (Milk Of Magnesia Liq) 30 ml DAILY PRN PO constipation Last administered on 10/20/16 12:54; Start 10/13/16 at 14:30 Acetaminophen/ Hydrocodone Bitart ([place] 5-325 Mg) 1 tab Q6H PRN PO PAIN SCALE 1 TO 10; Start 10/13/16 at 18:30; Stop 10/13/16 at 18:30; Status DC Acetaminophen/ Hydrocodone Bitart ([place] 5-325 Mg) 1 tab Q6H PRN PO PAIN SCALE 1 TO 10 Last administered on 11/07/16 14:03; Start 10/13/16 at 18:45 Cyclobenzaprine HCl (Flexeril) 5 mg HS PRN PO muscle relaxant Last administered on 10/22/16 21:17; Start 10/14/16 at 14:15 Fentanyl Citrate (fentaNYL INJ) 100 mcg STK-MED ONCE .ROUTE ; Start 10/23/16 at 16:51; Stop 10/23/16 at 16:52; Status DC Glycerin (Glycerin Adult Supp) 2 gm ONCE ONCE RECTAL Last administered on 15:29; Start 10/26/16 at 15:00; Stop 10/26/16 at 15:01; Status DC Nitrofurantoin Macrocrystals (Macrobid) 100 mg BIDPC PO Last administered on t 09:36; Start 10/26/16 at 15:00; Stop 10/29/16 at 14:59; Status DC Date of Insertion: Oct 12, 2016 A/P Problem List: (1) CVA (cerebral vascular accident) ICD Code: I63.9 Status: Acute (2) A-fib ICD Code: I48.91 Status: Chronic (3) DM (diabetes mellitus) ICD Code: E11.9 Status: Chronic Assessment and Plan 1. 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 Tracks with his eyes. Continue Keppra for seizure prophylaxis. PT/OT signed off as patient is unable to participate. -Need placement. Difficult. Appreciate case management assistance. 2. Clogged PEG tube on 10/14 and 10/23 status post PEG tube change, tube feedings to Glucerna 1.5 at 50 ml per hour. 3. Chronic respiratory failure -Secondary to CVA. Status post tracheostomy. Continue pulmonary toilet and bronchodilators as needed. Continue trach care, suctioning. Levsin as needed. -Pulmonary currently following . Appreciate assistance. 4. Atrial fibrillation -Continue rate control with Cardizem and metoprolol. Echocardiogram in November 2015 shows preserved ejection fraction. Coumadin discontinued secondary to bleeding. Rate controlled. Continue aspirin and prophylactic heparin dose. 5. History of non-Hodgkin's lymphoma - Status post brain biopsy on December 13 by neurosurgery. Pathology consistent with acute infarct without evidence of lymphoma. Oncology has signed Off 6. Diabetes mellitus -Hemoglobin A1c is 7. Continue Levemir. Monitor Accu-Cheks and cover with sliding scale insulin. Overall blood sugar continues well controlled. 7. Decubitus ulcer stage IV -Continue wound care, twice-daily dressing changes. Wound care recommendations. Continue pressure relief measures including turning and positioning. Patient's family has declined a diverting colostomy. Previous Wound culture growing Klebsiella. on Augmentin. Status post wide excision of sacral skin and biopsy of the cavity lining with debridement on 07/22/16. ID specialist recommended to continue on Amoxicillin and Cefepime for two months will be until the end of September or first days of October. 8. Gastric ulcer, reflux esophagitis - EGD on 07/30/16 showed gastric ulcers. Appreciate GI recommendations. Continue PPI. H&H stable. 9. UTI pseudomonas aeruginosa treated with abx - Resolved. - Repeat Ucx 08/28/16 negative. 10. Constipation: -Having regular bowel movements. -on lactulose. Monitor. 11. Anemia Hemoglobin 9.4 stable DVT prophylaxis on Heparin Discussed with his Mother in the room. Discharge Planning dc planning to SNF-no funding- SSI pending. Problem Qualifiers (1) DM (diabetes mellitus): Qualified Code: E11.9 - Type 2 diabetes mellitus without complications Patsy Wilkes MD Nov 11, 2016 10:08
[2016-11-11] MEDS: PANTOPRAZOLE SODIUM 40 MG VIAL IV PUSH SCH ×2 (10:25→21:09)
[2016-11-11] MEDS: SENNOSIDES SYRUP 8.8 MG/5 ML CUP PO SCH (16:00)
--- NOTE | 2016-11-11 17:28 | HHI.PR ---
Subjective Remarks opens eyes on o2 , o2 SAT 98 ON T PIECE NO DITRESS TRACH. [place] Objective Vital Signs Date Time Temp Pulse Resp B/P Pulse Ox O2 Delivery O2 Flow Rate FiO2 11/11/16 12:05 100 T-piece 28 11/11/16 07:20 97.5 87 20 108/70 96 11/11/16 04:00 98.7 87 20 114/71 96 11/11/16 00:00 98.6 80 20 116/79 100 11/10/16 21:00 83 11/10/16 20:00 95.8 82 20 118/73 100 I/O 11/10/16 11/10/16 11/10/16 11/11/16 11/11/16 11/11/16 07:00 15:00 23:00 07:00 15:00 23:00 Intake Total 400 ml 200 ml 400 ml Output Total 800 ml 800 ml 1025 ml 550 ml Balance -400 ml -800 ml -825 ml -150 ml Intake Oral 0 ml Tube Irrigant 400 ml 200 ml 400 ml Output Urine Total 800 ml 800 ml 1025 ml 550 ml # Bowel Movements 2 2 3 0 Procedures 01/02/16 PEG placement 01/02/16 tracheostomy 07/22/2016 Wide excision of sacral skin wound, biopsy of the cavity lining and debridement. PEG tube replacement 07/29/16 Objective Remarks GENERAL: SKIN: Warm and dry. HEAD: Atraumatic. Normocephalic. EYES: Pupils equal and round. No scleral icterus. No injection or drainage. ENT: No nasal bleeding or discharge. Mucous membranes pink and moist. NECK: Trachea midline. No JVD. TRACH. [place] CARDIOVASCULAR: Regular rate and rhythm. RESPIRATORY: No accessory muscle use. Clear to auscultation. Breath sounds equal bilaterally. GASTROINTESTINAL: Abdomen soft, non-tender, nondistended. Hepatic and splenic margins not palpable. MUSCULOSKELETAL: Extremities without clubbing, cyanosis, or edema. No obvious deformities. NEUROLOGICAL: Awake and alert. No obvious cranial nerve deficits. Motor grossly within normal limits. Five out of 5 muscle strength in the arms and legs. Normal speech. PSYCHIATRIC: Appropriate mood and affect; insight and judgment normal. Assessment and Plan Assessment and Plan impression respiratory failure CVA S/P TRACHEOSTOMY PLAN O2 NEEDED PULM. TOILET Brandon Taylor MD Nov 11, 2016 17:28
[2016-11-11] MEDS: PARoxetine HCL SUSP 20 MG/10 ML UDC PEG SCH (18:14)
[2016-11-11] MEDS: INSULIN DETEMIR 100 UNITS/ML VIAL SQ SCH (21:10)
[2016-11-12] VITALS (11 sets, daily range): BP systolic 96–136; BP diastolic 61–80; PULSE 74–96; RESP 18–21; TEMP 95.7–98; O2SAT 94–100
[2016-11-12] MEDS: FREE WATER TUBE SCH ×6 (00:06→20:00)
[2016-11-12] MEDS: HEPARIN SODIUM - SQ 10,000 UNITS/ML VIAL SQ SCH ×3 (06:11→22:17)
[2016-11-12] MEDS: AMOXICILLIN (TRIHYDRATE) 500 MG CAP PO SCH ×3 (06:11→22:05)
[2016-11-12] MEDS: ACETIC ACID 0.25% SOLN 1000 ML IRR BTL IRRIGATION SCH ×3 (06:21→22:00)
[2016-11-12] MEDS: INSULIN ASPART SUPPLEMENTAL SCALE SQ SCH (07:00)
[2016-11-12] MEDS: levETIRAcetam 500 MG/5 ML UDC TUBE SCH ×2 (08:54→22:05)
[2016-11-12] MEDS: DILTIAZEM HCL 30 MG TAB PEG SCH ×4 (08:54→22:05)
[2016-11-12] MEDS: POTASSIUM CHLORIDE 25 MEQ EFFERVESCENT TAB TUBE SCH (08:54)
[2016-11-12] MEDS: METOPROLOL TARTRATE 50 MG TAB PO SCH ×2 (08:54→22:10)
[2016-11-12] MEDS: ASPIRIN 325 MG TAB TUBE SCH (08:54)
[2016-11-12] MEDS: DOCUSATE SODIUM 100 MG/10 ML UDC PO SCH ×2 (08:54→22:04)
[2016-11-12] MEDS: LACTULOSE SYRUP 20 GM/30 ML CUP PO SCH (08:54)
[2016-11-12] MEDS: SODIUM CHLORIDE 0.65% NASAL SPRAY 45 ML BTL NASAL SCH ×2 (08:55→21:00)
[2016-11-12] MEDS: BACITRACIN TOP OINT 15 GM TUBE TOP SCH ×2 (08:55→22:17)
[2016-11-12] MEDS: ARTIFICIAL TEARS OPTH SOLN 15 ML BTL EACH EYE SCH ×2 (08:55→22:15)
[2016-11-12] MEDS: NYSTATIN 100,000 U/GM PWD 15 GM BTL TOPICAL SCH ×2 (08:56→22:27)
[2016-11-12] MEDS: KETOCONAZOLE 2% CREAM 15 GM TOPICAL SCH ×2 (08:56→21:00)
[2016-11-12] MEDS: PANTOPRAZOLE SODIUM 40 MG VIAL IV PUSH SCH ×2 (09:17→22:17)
--- NOTE | 2016-11-12 11:00 | HHI.PR ---
Subjective Remarks f/u for CVA patient continues to be nonverbal and does not follow directions. his mother is at the bedside. no acute events. Objective Vitals Vital Signs Date Time Temp Pulse Resp B/P Pulse Ox O2 Delivery O2 Flow Rate FiO2 11/12/16 08:51 89 18 115/75 97 11/12/16 08:00 90 11/12/16 07:56 96.2 86 21 96/68 94 11/12/16 07:47 99 T-piece 6.00 28 11/12/16 07:47 99 T-piece 6.00 28 11/12/16 06:24 97.7 91 20 120/76 100 11/12/16 02:09 98.0 74 20 112/68 97 11/11/16 21:15 97.1 77 20 124/72 100 11/11/16 21:00 83 11/11/16 19:20 100 T-piece 6.00 28 11/11/16 15:55 96.8 78 20 106/70 98 11/11/16 12:05 100 T-piece 28 I/O 11/11/16 11/11/16 11/11/16 11/12/16 11/12/16 11/12/16 07:00 15:00 23:00 07:00 15:00 23:00 Intake Total 400 ml Output Total 550 ml 1300 ml 600 ml Balance -150 ml -1300 ml -600 ml Tube Irrigant 400 ml Output Urine Total 550 ml 1300 ml 600 ml # Bowel Movements 0 1 Objective Remarks Gen NAD CV RRR. no r//g Resp trach in place CTA B/L abd soft NDNT NEURO patient is sleepy today but can be aroused. Procedures 01/02/16 PEG placement 01/02/16 tracheostomy 07/22/2016 Wide excision of sacral skin wound, biopsy of the cavity lining and debridement. PEG tube replacement 07/29/16 VAC changes- M-W-F 4/5- GJ tube replacement Medications and IVs Current Medications IV Flush (NS Flush) 2 ml UNSCH PRN IVF FLUSH AFTER USING IV ACCESS Last administered on 09/28/16t 21:18; Start 12/21/15 at 06:00 Ondansetron HCl (Zofran Inj) 4 mg STK-MED ONCE .ROUTE ; Start 12/21/15 at 06:22; Stop 12/21/15 at 06:23; Status DC Ondansetron HCl (Zofran Inj) 4 mg ONCE ONCE IV PUSH Last administered on at 06:43; Start 12/21/15 at 06:30; Stop 12/21/15 at 06:31; Status DC Diltiazem HCl 20 mg 20 mg ONCE ONCE IV Last administered on 12/21/15at 06:42; Start 12/21/15 at 06:30; Stop 12/21/15 at 06:31; Status DC Diltiazem HCl/ Sodium Chloride (Cardizem Inj/NS Inj) 125 ml @ 0 mls/hr TITRATE IV Last administered on 12/21/15at 06:47; Start 12/21/15 at 06:30; Stop 12/21/15 at 13:00; Status DC Acetaminophen (Tylenol) 650 mg ONCE ONCE PO ; Start 12/21/15 at 06:45; Stop 12/20 at 06:46; Status DC Lorazepam (Ativan Inj) 1 mg ONCE ONCE IV PUSH Last administered on 12/21/15at 07 :22; Start 12/21/15 at 07:15; Stop 12/21/15 at 07:16; Status DC Etomidate (Amidate Inj) 40 mg STK-MED ONCE .ROUTE Last administered on at 08:17; Start 12/21/15 at 07:37; Stop 12/21/15 at 07:38; Status DC Succinylcholine Chloride 200 mg 200 mg STK-MED ONCE .ROUTE Last administered on 12/21/15at 08:18; Start 12/21/15 at 07:37; Stop 12/21/15 at 07:38; Status DC Propofol (Diprivan 1000 Mg/100ml Inj) 100 ml @ As Directed STK-MED ONCE .ROUTE Last administered on 12/21/15at 08:19; Start 12/21/15 at 07:46; Stop 12/21/15 at 07:47; Status DC Propofol (Diprivan 1000 Mg/100ml Inj) search Sets for Drip. NOW PRN IV SEDATION Last administered on 12/22/15at 06:25; Start 12/21/15 at 08:30; Stop 12/28 at 15:43; Status DC Gadodiamide (Omniscan Pf Inj) 18 ml STK-MED ONCE IV Last administered on at 10:11; Start 12/21/15 at 10:11; Stop 12/21/15 at 10:12; Status DC Pantoprazole Sodium (Protonix Inj) 40 mg DAILY IV Last administered on at 07:39; Start 12/21/15 at 13:00; Stop 01/03/16 at 10:10; Status DC Albuterol/ Ipratropium (Duoneb Neb) 1 ampule Q6HR NEB INH Last administered on 12/25/15at 07:51; Start 12/21/15 at 13:00; Stop 12/25/15 at 13:00; Status DC Miscellaneous Information 1 [id number] Last administered on 12/21/15at 13:00; Start 12/21/15 at 13:00; Stop 01/12/16 at 11:47; Status DC Chlorhexidine Gluconate (Chlorhexidine 2% Cloth) 3 pack Taper DAILY@04 TOP Last administered on 01/11/16at 04:10; Start 12/22/15 at 04:00; Stop 01/12/16 at 11:47; Status DC Chlorhexidine Gluconate 3 pack 3 pack UNSCH PRN TOP HYGIENIC CARE; Start at 13:00; Stop 01/12/16 at 11:47; Status DC Sodium Chloride (NS 1000 ml Inj) 1,000 ml @ 75 mls/hr [id number] IV Last administered on 12/22/15at 17:00; Start 12/21/15 at 13:00; Stop 12/22/15 at 19:01; Status DC Dextrose (D50w (Vial) Inj) 25 ml UNSCH PRN IV PUSH HYPOGLYCEMIA-SEE COMMENTS; Start 12/21/15 at 13:00; Stop 04/19/16 at 17:19; Status DC Glucagon (Glucagon Inj) 1 mg UNSCH PRN OTHER HYPOGLYCEMIA-SEE COMMENTS; Start 12/21/15 at 13:00; Stop 04/19/16 at 17:19; Status DC Insulin Human Regular (NovoLIN R SUPPLEMENTAL SCALE) 1 Q6H SQ Last administered on 01/04/16at 06:31; Start 12/21/15 at 13:00; Stop 01/04/16 at 10:05 ; Status DC Levetriacetam (Keppra) 500 mg Q12HR PO Last administered on 12/27/15 09:00; Start 12/21/15 at 13:45; Stop 12/27/15 at 09:44; Status DC Heparin Sodium (Porcine) (Heparin Inj) 5,000 units BID SQ Last administered on 12/22/15at 20:52; Start 12/21/15 at 21:00; Stop 12/23/15 at 08:32; Status DC Warfarin Sodium (Coumadin) 7.5 mg ONCE ONCE PO Last administered on 12/21/15 21:43; Start 12/21/15 at 21:00; Stop 12/21/15 at 21:01; Status DC Warfarin Sodium (Coumadin) 5 mg DAILY@16 PO Last administered on 12/23/15 16:00 ; Start 12/22/15 at 16:00; Stop 12/26/15 at 09:29; Status DC Patient Medication Teaching (Coumadin Booklet) 1 ONCE ONCE XX Last administered on 12/21/15at 20:15; Start 12/21/15 at 20:15; Stop 12/21/15 at 20:16; Status DC Chlorhexidine Gluconate (Peridex 0.12% Liq) 15 ml BID@08,20 MT Last administered on 01/12/16at 08:00; Start 12/22/15 at 20:00; Stop 01/12/16 at 11:47 ; Status DC Gadodiamide 20 ml 20 ml STK-MED ONCE IV Last administered on 12/22/15 09:55; Start 12/22/15 at 09:55; Stop 12/22/15 at 09:56; Status DC Pharmacy Profile Note ml @ 0 mls/hr UNSCH OTHER ; Start 12/22/15 at 11:00; Stop 12/22/15 at 19:43; Status DC Sodium Chloride 1,000 ml @ 50 mls/hr Q20H IV Last administered on 12/24/15at 20: 02; Start 12/22/15 at 18:44; Stop 12/25/15 at 11:52; Status DC Pharmacy Profile Note (Coumadin Consult Pharmacy) 0 ml @ 0 mls/hr UNSCH OTHER ; Start 12/22/15 at 19:45; Stop 01/04/16 at 12:25; Status DC Acetaminophen 650 mg 650 mg Q6H PRN PO TEMP > 100 Last administered on at 13:24; Start 12/23/15 at 02:45; Stop 12/30/15 at 15:04; Status DC Potassium Chloride 100 ml @ 50 mls/hr Q2H PRN IV For Potassium 2.8 - 3.2 mEq/L ; Start 12/23/15 at 08:30; Stop 01/09/16 at 11:14; Status DC Potassium Chloride (KCl 20 Meq Premix Inj) 100 ml @ 50 mls/hr Q2H PRN IV For Potassium 2.8 - 3.2 mEq/L; Start 12/23/15 at 08:30; Stop 01/09/16 at 11:14; Status DC Potassium Chloride 40 meq 40 meq UNSCH PRN PO/TUBE For Potassium 3.3 - 3.5 mEq/ L; Start 12/23/15 at 08:30; Stop 01/09/16 at 11:14; Status DC Potassium Chloride 100 ml @ 25 mls/hr UNSCH PRN IV For Potassium 3.3 - 3.5 mEq /L; Start 12/23/15 at 08:30; Stop 01/09/16 at 11:14; Status DC Potassium Chloride 100 ml @ 50 mls/hr Q2H PRN IV For Potassium 3.3 - 3.5 mEq/L ; Start 12/23/15 at 08:30; Stop 01/09/16 at 11:14; Status DC Magnesium Sulfate/ Sodium Chloride (Magnesium Sulfate Inj/NS Inj) 100 ml @ 50 mls/hr UNSCH PRN IV For Magnesium 0.9 - 1.1 mg/dL; Start 12/23/15 at 08:30; Stop 01/09/16 at 11:14; Status DC Magnesium Oxide 800 mg 800 mg UNSCH PRN PO For Magnesium 1.2 - 1.6 mg/dL; Start 12/23/15 at 08:30; Stop 01/09/16 at 11:14; Status DC Magnesium Sulfate/ Sodium Chloride (Magnesium Sulfate Inj/NS Inj) 100 ml @ 50 mls/hr UNSCH PRN IV For Magnesium 1.2 - 1.6 mg/dL; Start 12/23/15 at 08:30; Stop 01/09/16 at 11:14; Status DC Potassium Phosphate 2000 mg 2,000 mg Q4H PRN PO For Phosphorus < 2.5 mg/dL; Start 12/23/15 at 08:30; Stop 01/09/16 at 11:14; Status DC Sodium Phosphate/ Sodium Chloride (Sodium Phosphate Inj/NS 250 ml Inj) 250 ml @ 42 mls/hr UNSCH PRN IV For Phosphorus < 2.5 mg/dL; Start 12/23/15 at 08:30; Stop 01/09/16 at 11:14; Status DC Potassium Chloride (KCl 40 Meq/30 ml Liq) 40 meq UNSCH PRN PO/TUBE SEE LABEL COMMENTS; Start 12/23/15 at 08:30; Stop 01/09/16 at 11:14; Status DC Potassium Phosphate 2000 mg 2,000 mg UNSCH PRN PO/TUBE SEE LABEL COMMENTS; Start 12/23/15 at 08:30; Stop 01/09/16 at 11:14; Status DC Potassium Phosphate 30 mmol/ Sodium Chloride 260 ml @ 42 mls/hr UNSCH PRN IV SEE LABEL COMMENTS; Start 12/23/15 at 08:30; Stop 01/09/16 at 11:14; Status DC Sodium Chloride 1,000 ml @ 75 mls/hr [id number] IV ; Start 12/23/15 at 08:30; Stop 12/23/15 at 08:30; Status DC Piperacillin Sod/ Tazobactam Sod 50 ml @ 100 mls/hr Q6H IV Last administered on 12/30/15at 10:02; Start 12/23/15 at 10:00; Stop 12/30/15 at 14:50; Status DC Vancomycin HCl/ Sodium Chloride (Vancomycin Inj/ NS 250 ml Inj) 250 ml @ 250 mls/hr Q12H IV Last administered on 12/29/15at 09:01; Start 12/24/15 at 08:45; Stop 12/29/15 at 15:33; Status DC Warfarin Sodium (Coumadin) 4 mg DAILY@16 PO Last administered on 12/28/15at 16:00 ; Start 12/26/15 at 16:00; Stop 01/04/16 at 12:25; Status DC Levetriacetam (Keppra Liq) 500 mg Q12HR TUBE Last administered on 11/12/16t 08 :54; Start 6/8/16 at 21:00 Docusate Sodium (Colace Liq) 100 mg Q12HR TUBE Last administered on 01/15/16at 09:01; Start 12/27/15 at 21:00; Stop 04/16/16 at 08:50; Status DC Sennosides (Senna Liq) 8.8 mg DAILY TUBE Last administered on 01/15/16at 09:01 ; Start 12/27/15 at 17:00; Stop 01/15/16 at 20:37; Status DC Bisacodyl (Dulcolax Supp) 10 mg ONCE ONCE RECTAL ; Start 12/27/15 at 16:15; Stop 12/27/15 at 16:15; Status DC Albuterol/ Ipratropium (Duoneb Neb) 1 ampule Q4HR NEB PRN NEB RESPIRATORY DISTRESS Last administered on 12/29/15at 12:17; Start 12/27/15 at 22:00; Stop at 08:16; Status DC Bisacodyl (Dulcolax Supp) 10 mg ONCE ONCE RECTAL ; Start 12/28/15 at 12:00; Stop 12/28/15 at 12:01; Status DC Sodium Chloride (Sodium Chloride) 1 gm BID TUBE Last administered on 12/29/15at 09:02; Start 12/28/15 at 21:00; Stop 12/29/15 at 15:43; Status DC Lactulose (Lactulose Liq) 30 ml DAILY TUBE Last administered on 12/29/15at 09:02 ; Start 12/28/15 at 20:30; Stop 12/29/15 at 15:43; Status DC Levofloxacin (Levaquin) 750 mg DAILY@16 TUBE ; Start 12/29/15 at 16:00; Stop 05/05 at 16:00; Status DC Sodium Chloride (Sodium Chloride) 1 gm DAILY TUBE Last administered on at 07:29; Start 12/30/15 at 09:00; Stop 12/31/15 at 14:08; Status DC Water 200 ml 200 ml Q6HR G-TUBE Last administered on 12/31/15at 04:19; Start 06/05 at 14:45; Stop 12/31/15 at 07:31; Status DC Ceftriaxone Sodium/Sodium Chloride (Rocephin Inj/NS Inj) 100 ml @ 200 mls/hr Q12H IV Last administered on 01/03/16at 02:47; Start 12/30/15 at 15:00; Stop at 10:09; Status DC Acetaminophen (Tylenol 650 Mg/ 20 ml Liq) 650 mg Q6H PRN TUBE TEMP >100.4 Last administered on 10/25/16t 15:13; Start 12/30/15 at 15:15 Lactobacillus Acidophilus (Lactinex Pkt) 1 gm BID TUBE Last administered on at 09:00; Start 12/30/15 at 21:00; Stop 02/10/16 at 14:30; Status DC Enoxaparin Sodium (Lovenox Inj) 90 mg Q12H SQ Last administered on 01/01/16at 21 :57; Start 12/31/15 at 08:00; Stop 01/03/16 at 10:33; Status DC Water (Free Water) 100 ml Q12H G-TUBE ; Start 12/31/15 at 18:00; Stop 12/31/15 at 18:00; Status DC Acetaminophen/ Hydrocodone Bitart ([place] 5-325 Mg) 1 tab Q6H PRN PO PAIN Last administered on 05/26/16at 20:46; Start 12/31/15 at 15:00; Stop 06/02/16 at 21: 44; Status DC Fentanyl Citrate (Sublimaze Inj) 25 mcg Q1H PRN IV PUSH BREAKTHROUGH PAIN; Start 12/31/15 at 15:00; Stop 03/06/16 at 10:03; Status DC Water (Free Water) 200 ml Q8H G-TUBE Last administered on 01/01/16at 17:55; Start 12/31/15 at 18:00; Stop 01/02/16 at 09:56; Status DC Sodium Chloride (Sodium Chloride) 1 gm BID TUBE Last administered on 01/03/16at 07:39; Start 12/31/15 at 21:00; Stop 01/03/16 at 09:08; Status DC Miscellaneous Information Hold Anticoagulation after midni... ONCE ONCE OTHER ; Start 01/01/16 at 10:15; Stop 01/01/16 at 10:29; Status DC Sodium Chloride (NS 1000 ml Inj) 1,000 ml @ 50 mls/hr Q20H IV Last administered on 01/02/16at 12:26; Start 01/01/16 at 18:00; Stop 01/03/16 at 10:07 ; Status DC Midazolam HCl (Versed Inj) 5 mg STK-MED ONCE .ROUTE ; Start 01/02/16 at 12:47; Stop 01/02/16 at 12:48; Status DC Vecuronium [place] (Norcuron 10 Mg Inj) 10 mg STK-MED ONCE .ROUTE ; Start at 12:47; Stop 01/02/16 at 12:48; Status DC Fentanyl Citrate (Sublimaze Inj) 250 mcg ONCE ONCE IV PUSH Last administered on 01/02/16at 15:00; Start 01/02/16 at 15:00; Stop 01/02/16 at 15:01; Status DC Midazolam HCl (Versed Inj) 10 mg ONCE ONCE IV PUSH Last administered on at 15:00; Start 01/02/16 at 15:00; Stop 01/02/16 at 15:01; Status DC Rocuronium [place] (Zemuron Inj) 100 mg BOLUS ONCE IV Last administered on at 15:00; Start 01/02/16 at 15:00; Stop 01/02/16 at 15:01; Status DC Ketamine HCl (Ketalar Inj) 500 mg STK-MED ONCE .ROUTE ; Start 01/02/16 at 14:30 ; Stop 01/02/16 at 14:31; Status DC Propofol 230 mg 230 mg STK-MED ONCE IV ; Start 01/02/16 at 16:51; Stop 01/02/16 at 16:52; Status DC Sodium Chloride (NS 1000 ml Inj) 1,000 ml @ 0 mls/hr Q0M IV ; Start 01/03/16 at 10:15; Stop 01/17/16 at 17:30; Status DC Ranitidine HCl (Zantac Liq) 150 mg Q12HR PO Last administered on 01/17/16at 07: 39; Start 01/04/16 at 09:00; Stop 01/17/16 at 15:23; Status DC Enoxaparin Sodium 90 mg 90 mg Q12HR SQ Last administered on 01/11/16at 10:01; Start 01/04/16 at 09:00; Stop 01/11/16 at 12:35; Status DC Sodium Chloride (NS 500 ml Inj) 500 ml @ 0 mls/hr BOLUS ONCE IV Last administered on 01/03/16at 22:57; Start 01/03/16 at 23:00; Stop 01/03/16 at 23:01 ; Status DC Insulin Aspart (NovoLOG SUPPLEMENTAL SCALE) 1 Q6HR SQ Last administered on at 12:00; Start 01/04/16 at 12:00; Stop 03/24/16 at 13:58; Status DC Potassium Chloride (KCl 40 Meq/30 ml Liq) 40 meq Q4H NG Last administered on at 16:21; Start 01/04/16 at 13:00; Stop 01/04/16 at 17:01; Status DC Warfarin Sodium 5 mg 5 mg DAILY@1600 PO Last administered on 01/09/16at 17:21; Start 01/04/16 at 16:00; Stop 01/10/16 at 10:06; Status DC Pharmacy Profile Note (Coumadin Consult Pharmacy) 0 ml @ 0 mls/hr UNSCH XX ; Start 01/04/16 at 12:30; Stop 04/20/16 at 12:04; Status DC Insulin Detemir (Levemir Inj) 10 units Q12HR SQ Last administered on 01/05/16at 08:00; Start 01/04/16 at 21:00; Stop 01/05/16 at 08:42; Status DC Insulin Detemir (Levemir Inj) 5 units NOW ONCE SQ Last administered on at 13:28; Start 01/04/16 at 12:45; Stop 01/04/16 at 12:46; Status DC Albuterol/ Ipratropium (Duoneb Neb) 1 ampule Q4HR NEB PRN NEB dyspnea Last administered on 04/19/16at 02:24; Start 01/07/16 at 08:15; Stop 04/25/16 at 18:54 ; Status DC Warfarin Sodium (Coumadin) 7.5 mg ONCE ONCE PO Last administered on 01/07/16at 16:40; Start 01/07/16 at 16:00; Stop 01/07/16 at 16:01; Status DC Nystatin (Mycostatin Powder) 1 applic Q12HR TOPICAL Last administered on t 08:56; Start 01/08/16 at 21:00 Ipratropium [place] (Atrovent Neb) 0.5 mg TID NEB NEB Last administered on 02/20at 13:17; Start 01/08/16 at 20:00; Stop 02/21/16 at 17:52; Status DC Warfarin Sodium (Coumadin) 5 mg DAILY@1600 PO Last administered on 01/11/16at 14 :26; Start 01/11/16 at 16:00; Stop 01/12/16 at 09:45; Status DC Warfarin Sodium (Coumadin) 6 mg ONCE PO Last administered on 01/10/16at 17:10; Start 01/10/16 at 16:00; Stop 01/10/16 at 21:00; Status DC Metoprolol Tartrate (Lopressor) 50 mg Q12HR GT Last administered on 01/11/16at 10:02; Start 01/10/16 at 11:00; Stop 01/11/16 at 12:30; Status DC Metoprolol Tartrate (Lopressor) 50 mg TID GT Last administered on 01/14/16at 08: 24; Start 01/11/16 at 13:00; Stop 01/14/16 at 08:28; Status DC Insulin Detemir (Levemir Inj) 10 units HS SQ Last administered on 01/11/16at 22: 23; Start 01/11/16 at 21:00; Stop 01/12/16 at 11:47; Status DC Warfarin Sodium (Coumadin) 4 mg DAILY@16 PO ; Start 01/12/16 at 16:00; Stop at 16:00; Status DC Insulin Detemir (Levemir Inj) 20 units HS SQ Last administered on 01/13/16at 20: 26; Start 01/12/16 at 21:00; Stop 01/14/16 at 08:28; Status DC Warfarin Sodium (Coumadin) 2 mg DAILY@16 PO Last administered on 01/13/16at 17: 05; Start 01/12/16 at 16:00; Stop 01/14/16 at 11:23; Status DC Insulin Detemir (Levemir Inj) 22 units HS SQ Last administered on 01/14/16at 21: 37; Start 01/14/16 at 21:00; Stop 6/27/16 at 10:06; Status DC Metoprolol Tartrate (Lopressor) 75 mg TID GT Last administered on 03/10/16at 17: 43; Start 01/14/16 at 09:00; Stop 03/10/16 at 21:13; Status DC Miscellaneous (Pill Splitter) 1 ea UNSCH PRN OTHER SEE LABEL COMMENTS; Start at 08:30 Warfarin Sodium (Coumadin) 4 mg DAILY@1600 PO Last administered on 01/21/16at 16: 51; Start 01/14/16 at 16:00; Stop 01/23/16 at 09:29; Status DC Patient Medication Teaching (Coumadin Booklet) 1 ONCE ONCE XX ; Start 01/14/16 at 16:00; Stop 01/14/16 at 16:01; Status DC Insulin Detemir (Levemir Inj) 24 units HS SQ Last administered on 03/04/16at 21: 09; Start 01/15/16 at 21:00; Stop 03/05/16 at 11:17; Status DC Citalopram Hydrobromide (CeleXA) 20 mg DAILY PEG Last administered on at 08:01; Start 01/16/16 at 09:00; Stop 01/16/16 at 09:41; Status DC Sennosides (Senna Liq) 8.8 mg BID TUBE Last administered on 02/20/16at 08:32; Start 01/15/16 at 21:00; Stop 02/20/16 at 16:13; Status DC Gadodiamide 18 ml 18 ml STK-MED ONCE IV ; Start 01/16/16 at 20:40; Stop at 20:41; Status DC Sodium Chloride (NS 1000 ml Inj) 1,000 ml @ 125 mls/hr Q8H IV Last administered on 01/17/16at 15:11; Start 01/17/16 at 15:00; Stop 01/17/16 at 17:31 ; Status DC Ranitidine HCl 150 mg 150 mg Q24H PO Last administered on 07/28/16t 08:54; Start 01/18/16 at 09:00; Stop 07/30/16 at 10:05; Status DC Sodium Chloride 1,000 ml @ 75 mls/hr [id number] IV Last administered on at 05:22; Start 01/17/16 at 18:00; Stop 01/18/16 at 09:28; Status DC Sodium Chloride/ Sterile Water (Sodium Chloride 23.4% Inj/Sterile Water For Inj ) 1,009.625 ml @ 60 mls/hr [id number] IV Last administered on 01/21/16at 22:46; Start 01/18/16 at 11:00; Stop 01/22/16 at 10:09; Status DC Potassium Chloride (KCl) 40 meq ONCE ONCE PO ; Start 01/18/16 at 09:30; Stop at 09:31; Status DC Potassium Chloride (KCl 40 Meq/30 ml Liq) 40 meq ONCE ONCE TUBE Last administered on 01/18/16at 11:08; Start 01/18/16 at 11:00; Stop 01/18/16 at 11:01 ; Status DC Water (Free Water) 300 ml Q4HR TUBE Last administered on 01/19/16at 08:00; Start 01/18/16 at 12:00; Stop 01/19/16 at 10:43; Status DC Water (Free Water) 400 ml Q4HR TUBE Last administered on 04/16/16at 04:00; Start 01/19/16 at 12:00; Stop 04/16/16 at 09:09; Status DC Potassium Chloride (KCl 40 Meq/30 ml Liq) 40 meq ONCE ONCE NG Last administered on 01/19/16at 11:41; Start 01/19/16 at 11:00; Stop 01/19/16 at 11:01; Status DC Potassium Chloride 60 meq 60 meq ONCE ONCE PO/TUBE Last administered on at 13:30; Start 01/21/16 at 11:15; Stop 01/21/16 at 11:27; Status DC Sodium Chloride (1/2 NS 1000 ml Inj) 1,000 ml @ 30 mls/hr Q24H IV Last administered on 02/06/16at 11:26; Start 01/22/16 at 11:00; Stop 02/07/16 at 14:49 ; Status DC Warfarin Sodium (Coumadin) 3 mg DAILY@16 PO Last administered on 01/23/16at 17:19 ; Start 01/23/16 at 16:00; Stop 01/24/16 at 14:05; Status DC Warfarin Sodium (Coumadin) 3 mg DAILY@16 PO Last administered on 01/25/16at 15:59 ; Start 01/25/16 at 16:00; Stop 01/26/16 at 15:04; Status DC Warfarin Sodium (Coumadin) 4 mg ONCE@1600 ONCE PO Last administered on at 16:55; Start 01/24/16 at 16:00; Stop 01/24/16 at 16:01; Status DC Warfarin Sodium (Coumadin) 3 mg DAILY@16 PO ; Start 01/27/16 at 16:00; Stop at 16:00; Status DC Warfarin Sodium (Coumadin) 4 mg ONCE@1600 ONCE PO Last administered on at 16:52; Start 01/26/16 at 16:00; Stop 01/26/16 at 16:01; Status DC Potassium Chloride (KCl 40 Meq/30 ml Liq) 80 meq ONCE ONCE PO Last administered on 01/27/16at 07:45; Start 01/27/16 at 07:45; Stop 01/27/16 at 08:10; Status DC Warfarin Sodium (Coumadin) 4 mg DAILY@16 PO Last administered on 02/02/16at 17: 22; Start 01/27/16 at 16:00; Stop 02/03/16 at 11:37; Status DC Acetic Acid (Acetic Acid 0.25% Irr Btl) 10 ml Q8HR IRRIGATION Last administered on 02/05/16at 06:00; Start 01/28/16 at 22:00; Stop 02/05/16 at 15:51 ; Status DC Warfarin Sodium 3 mg 3 mg DAILY@1600 PO Last administered on 02/11/16at 17:34; Start 02/03/16 at 16:00; Stop 02/12/16 at 12:45; Status DC Ceftriaxone Sodium/Sodium Chloride (Rocephin Inj/NS Inj) 100 ml @ 200 mls/hr Q24H IV Last administered on 02/10/16at 05:23; Start 02/05/16 at 06:30; Stop at 14:32; Status DC Acetic Acid (Acetic Acid 0.25% Irr Btl) 10 ml Q8HR IRRIGATION ; Start 02/05/16 at 16:00; Status Cancel Acetic Acid (Acetic Acid 0.25% Irr Btl) 10 ml Q8HR IRRIGATION Last administered on 11/12/16t 06:21; Start 02/05/16 at 16:00 Lactobacillus Acidophilus (Lactinex) 1 tab Q12HR PO Last administered on at 08:25; Start 02/10/16 at 21:00; Stop 02/12/16 at 16:05; Status DC Warfarin Sodium (Coumadin) 4 mg DAILY@1600 PO Last administered on 02/14/16at 15 :56; Start 02/12/16 at 16:00; Stop 02/15/16 at 10:17; Status DC Paroxetine HCl (Paxil Liq) 20 mg DAILY PEG Last administered on 02/25/16at 07:33 ; Start 02/16/16 at 09:00; Stop 02/25/16 at 10:36; Status DC Warfarin Sodium (Coumadin) 3 mg DAILY@1600 PO Last administered on 02/19/16at 16: 42; Start 02/15/16 at 16:00; Stop 02/20/16 at 08:50; Status DC Warfarin Sodium (Coumadin) 4 mg DAILY@16 PO Last administered on 02/21/16at 15:54 ; Start 02/20/16 at 16:00; Stop 02/22/16 at 08:46; Status DC Sennosides (Senna Liq) 8.8 mg DAILY TUBE Last administered on 05/26/16at 08:14 ; Start 02/21/16 at 09:00; Stop 05/27/16 at 11:51; Status DC Albuterol Sulfate (Albuterol Neb) 2.5 mg QID NEB INH Last administered on at 19:51; Start 02/21/16 at 20:00; Stop 02/25/16 at 20:00; Status DC Acetylcysteine (Mucomyst 10% Neb) 1 ml QID NEB NEB Last administered on at 16:32; Start 02/21/16 at 20:00; Stop 02/23/16 at 16:01; Status DC Warfarin Sodium (Coumadin) 3 mg DAILY@16 PO Last administered on 02/22/16at 15:59 ; Start 02/22/16 at 16:00; Stop 02/23/16 at 08:56; Status DC Warfarin Sodium (Coumadin) 3 mg DAILY@16 PO Last administered on 02/28/16at 16: 17; Start 02/24/16 at 16:00; Stop 02/29/16 at 10:04; Status DC Warfarin Sodium (Coumadin) 2 mg ONCE PO Last administered on 02/23/16at 16:22; Start 02/23/16 at 16:00; Stop 02/23/16 at 21:00; Status DC Paroxetine HCl (Paxil Liq) 20 mg DAILY@1900 PEG Last administered on 03/08/16at 18:11; Start 02/26/16 at 19:00; Stop 03/09/16 at 11:31; Status DC Warfarin Sodium (Coumadin) 3 mg DAILY@16 PO Last administered on 03/06/16at 16: 22; Start 03/01/16 at 16:00; Stop 03/09/16 at 10:30; Status DC Warfarin Sodium (Coumadin) 1 mg ONCE PO Last administered on 02/29/16at 17:28; Start 02/29/16 at 16:00; Stop 02/29/16 at 21:00; Status DC Insulin Detemir (Levemir Inj) 27 units HS SQ Last administered on 03/05/16at 20: 25; Start 03/05/16 at 21:00; Stop 03/06/16 at 10:03; Status DC Patient Medication Teaching (Coumadin Booklet) 1 ONCE ONCE XX Last administered on 03/05/16at 16:00; Start 03/05/16 at 16:00; Stop 03/05/16 at 16:01 ; Status DC Insulin Detemir (Levemir Inj) 30 units HS SQ Last administered on 03/21/16at 22: 32; Start 03/06/16 at 21:00; Stop 03/22/16 at 14:48; Status DC Trimethoprim/ Sulfamethoxazole (Bactrim 800-160 Mg/20 ml Liq) 20 ml Q12HR PO Last administered on 03/14/16at 08:01; Start 03/07/16 at 11:15; Stop 03/14/16 at 11:14; Status DC Lorazepam (Ativan Inj) 0.5 mg Q4H PRN IV PUSH seizures or agitation; Start at 23:00 Metronidazole (Flagyl) 500 mg Q8H PO Last administered on 03/14/16at 15:51; Start 03/08/16 at 17:00; Stop 03/14/16 at 23:00; Status DC Warfarin Sodium (Coumadin) 2 mg DAILY@16 PO Last administered on 03/09/16at 17: 20; Start 03/09/16 at 16:00; Stop 03/10/16 at 10:33; Status DC Paroxetine HCl (Paxil) 20 mg DAILY@1900 PEG Last administered on 03/11/16at 17: 55; Start 03/09/16 at 19:00; Stop 03/12/16 at 08:31; Status DC Warfarin Sodium 3 mg 3 mg DAILY@16 PO Last administered on 04/12/16at 15:28; Start 03/10/16 at 16:00; Stop 04/12/16 at 16:39; Status DC Pharmacy Profile Note 0 ml @ 0 mls/hr UNSCH OTHER ; Start 03/10/16 at 14:15; Stop 03/18/16 at 11:33; Status DC Vancomycin HCl/ Sodium Chloride (Vancomycin Inj/ NS 500 ml Inj) 530 ml @ 265 mls/hr Q12H IV Last administered on 03/17/16at 16:26; Start 03/10/16 at 16:00; Stop 03/17/16 at 23:00; Status DC Miscellaneous Information SPECIFIC LAB TO BE ... ONCE ONCE XX Last administered on 03/12/16at 04:45; Start 03/12/16 at 03:45; Stop 03/12/16 at 03:46 ; Status DC Metoprolol Tartrate (Lopressor) 75 mg Q8HR PO Last administered on 04/02/16at 13 :13; Start 03/10/16 at 22:00; Stop 04/02/16 at 17:31; Status DC Paroxetine HCl (Paxil Liq) 20 mg DAILY@1900 PEG Last administered on 11/11/16t 18:14; Start 03/12/16 at 19:00 Warfarin Sodium (Coumadin) 1 mg ONCE PO Last administered on 03/21/16at 16:24; Start 03/21/16 at 16:00; Stop 03/21/16 at 21:00; Status DC Warfarin Sodium (Coumadin) 1 mg ONCE PO Last administered on 03/22/16at 17:46; Start 03/22/16 at 16:00; Stop 03/22/16 at 21:00; Status DC Insulin Detemir (Levemir Inj) 32 units HS SQ Last administered on 03/22/16at 20: 18; Start 03/22/16 at 21:00; Stop 03/23/16 at 13:35; Status DC Diltiazem HCl (Cardizem Cd) 120 mg DAILY PO Last administered on 04/14/16at 07: 43; Start 03/22/16 at 16:00; Stop 04/14/16 at 14:39; Status DC Hyoscyamine Sulfate (Levsin Liq) 0.125 mg Q4H PRN PEG INCREASED SECRETIONS Last administered on 04/10/16at 08:05; Start 03/22/16 at 15:15; Stop 04/11/16 at 10:24; Status DC Warfarin Sodium (Coumadin) 2 mg ONCE ONCE PO Last administered on 03/23/16at 17: 26; Start 03/23/16 at 16:00; Stop 03/23/16 at 16:01; Status DC Insulin Detemir (Levemir Inj) 34 units HS SQ Last administered on 03/23/16at 20: 01; Start 03/23/16 at 21:00; Stop 03/24/16 at 13:53; Status DC Insulin Detemir (Levemir Inj) 35 units HS SQ Last administered on 11/11/16t 21: 10; Start 03/24/16 at 21:00 Insulin Aspart (NovoLOG SUPPLEMENTAL SCALE) 1 ACHS SLIDING SCALE SQ Last administered on 04/16/16at 22:27; Start 03/24/16 at 16:00; Stop 04/19/16 at 17:19 ; Status DC Warfarin Sodium (Coumadin) 1 mg ONCE ONCE PO Last administered on 03/30/16at 16 :59; Start 03/30/16 at 16:00; Stop 03/30/16 at 16:01; Status DC Potassium Chloride (KCl 40 Meq/30 ml Liq) 40 meq ONCE ONCE NG Last administered on 03/31/16at 21:28; Start 03/31/16 at 18:30; Stop 03/31/16 at 18:31 ; Status DC Potassium Bicarb/ Potassium Chloride (K-Lyte Cl Eff) 25 meq ONCE ONCE PEG Last administered on 04/02/16at 12:01; Start 04/02/16 at 13:00; Stop 04/02/16 at 13:01; Status DC Metoprolol Tartrate (Lopressor) 75 mg BID PO Last administered on 05/28/16at 21: 03; Start 04/02/16 at 21:00; Stop 05/29/16 at 11:21; Status DC Potassium Bicarb/ Potassium Chloride (K-Lyte Cl Eff) 25 meq ONCE ONCE PEG Last administered on 04/04/16at 14:40; Start 04/04/16 at 12:30; Stop 04/04/16 at 12:31; Status DC Linezolid (Zyvox) 600 mg Q12HR PO Last administered on 04/16/16at 09:11; Start 04/05/16 at 15:00; Stop 04/16/16 at 12:00; Status DC Artificial Tears (Lacrilube Opht Oint) 1 applic Q12HR EACH EYE Last administered on 09/04/16t 21:00; Start 04/10/16 at 11:00; Stop 09/05/16 at 14:38 ; Status DC Hyoscyamine Sulfate (Levsin) 0.25 mg Q4H PRN G-TUBE INCREASED SECRETIONS Last administered on 08/31/16 05:02; Start 04/11/16 at 10:30 Diatrizoate Meglum/ Diatrizoate Sod ( Gastroview Liq) 18 ml ONCE ONCE PO Last administered on 04/12/16at 16:45; Start 04/12/16 at 16:15; Stop 04/12/16 at 16:16; Status DC Warfarin Sodium (Coumadin) 3 mg DAILY@16 PO ; Start 04/13/16 at 16:00; Stop 05/27/16 at 11:51; Status DC Iohexol (Omnipaque 350 Inj) 98 ml STK-MED ONCE IV Last administered on at 21:01; Start 04/12/16 at 21:01; Stop 04/12/16 at 21:02; Status DC Diltiazem HCl (Cardizem Cd) 180 mg DAILY PO ; Start 04/15/16 at 09:00; Stop at 08:50; Status DC Ondansetron HCl (Zofran Inj) 4 mg Q6HR PRN IV PUSH nausea/vomiting Last administered on 08/10/16 10:16; Start 04/14/16 at 19:45 Diltiazem HCl 60 mg 60 mg QID PO Last administered on 04/25/16 17:26; Start at 13:00; Stop 04/25/16 at 19:06; Status DC Sodium Chloride 500 ml @ 500 mls/hr BOLUS ONCE IV Last administered on at 09:15; Start 04/15/16 at 09:15; Stop 04/15/16 at 10:14; Status DC Potassium Chloride/Dextrose/ Sodium Chloride (KCl Inj/D5W-NS 1000 ml Inj) 1,005 ml @ 100 mls/hr Q10H3M IV Last administered on 04/15/16at 21:03; Start at 11:00; Stop 04/16/16 at 09:09; Status DC Enoxaparin Sodium (Lovenox Inj) 90 mg Q12H SQ Last administered on 04/16/16at 21 :12; Start 04/16/16 at 09:00; Stop 04/17/16 at 10:37; Status DC Water 200 ml 200 ml Q4HR TUBE Last administered on 11/12/16 08:00; Start 04/16 at 12:00 Sodium Chloride 1,000 ml @ 84 mls/hr [id number] IV Last administered on at 08:38; Start 04/16/16 at 10:00; Stop 04/20/16 at 12:04; Status DC Ceftriaxone Sodium/Sodium Chloride (Rocephin Inj/NS Inj) 100 ml @ 200 mls/hr Q24H IV Last administered on 05/02/16at 13:19; Start 04/16/16 at 12:00; Stop 05/03/16 at 12:06; Status DC Acetaminophen/ Hydrocodone Bitart ([place] 5-325 Mg) 1 tab Q6HR PEG Last administered on 09/17/16 06:42; Start 04/18/16 at 18:00; Stop 09/17/16 at 09:17 ; Status DC Lactulose (Lactulose Liq) 30 ml NOW ONCE PEG Last administered on 04/19/16at 17 :21; Start 04/19/16 at 17:30; Stop 04/19/16 at 17:31; Status DC Lactulose (Lactulose Liq) 30 ml DAILY PEG Last administered on 05/26/16at 08:14 ; Start 04/20/16 at 09:00; Stop 05/27/16 at 11:39; Status DC Potassium Bicarb/ Potassium Chloride (K-Lyte Cl Eff) 50 meq ONCE ONCE PO Last administered on 04/20/16at 05:52; Start 04/20/16 at 05:45; Stop 04/20/16 at 05:46; Status DC Furosemide (Lasix Inj) 20 mg ONCE ONCE IV PUSH Last administered on 04/20/16at 17:35; Start 04/20/16 at 12:00; Stop 04/20/16 at 12:06; Status DC Insulin Aspart (NovoLOG SUPPLEMENTAL SCALE) 1 ACHS SLIDING SCALE SQ Last administered on 06/02/16at 12:10; Start 04/20/16 at 16:00; Stop 06/02/16 at 21: 44; Status DC Dextrose (D50w (Vial) Inj) 25 ml UNSCH PRN IV HYPOGLYCEMIA-SEE COMMENTS; Start 04/20/16 at 12:00 Glucagon (Glucagon Inj) 1 mg UNSCH PRN IM/SQ HYPOGLYCEMIA-SEE COMMENTS; Start 04/20/16 at 12:00 Lactobacillus Acidophilus (Lactinex) 1 tab Q12HR PEG Last administered on 06/06at 21:34; Start 04/22/16 at 09:00; Stop 06/07/16 at 09:32; Status DC Furosemide (Lasix Inj) 20 mg Q12H IV PUSH Last administered on 04/24/16at 08:52 ; Start 04/22/16 at 09:00; Stop 04/24/16 at 09:25; Status DC Potassium Bicarb/ Potassium Chloride (K-Lyte Cl Eff) 25 meq Q12HR TUBE Last administered on 05/27/16at 08:17; Start 04/22/16 at 09:00; Stop 05/27/16 at 11:51 ; Status DC Albumin Human (Albumin 25% Inj) 12.5 gm Q12H IV Last administered on 04/24/16at 08:46; Start 04/22/16 at 09:00; Stop 04/24/16 at 09:25; Status DC Furosemide (Lasix Inj) 20 mg DAILY IV PUSH Last administered on 05/08/16at 09: 01; Start 04/25/16 at 09:00; Stop 05/08/16 at 11:06; Status DC Albumin Human (Albumin 25% Inj) 12.5 gm DAILY IV Last administered on at 09:02; Start 04/25/16 at 10:00; Stop 05/08/16 at 11:06; Status DC Furosemide (Lasix Inj) 40 mg ONCE ONCE IV PUSH Last administered on 04/25/16at 18:15; Start 04/25/16 at 18:15; Stop 04/25/16 at 18:16; Status DC Albuterol/ Ipratropium (Duoneb Neb) 1 ampule Q6HR NEB NEB Last administered on 04/27/16at 15:52; Start 04/25/16 at 18:30; Stop 04/27/16 at 19:45; Status DC Ipratropium [place] (Atrovent Neb) 0.5 mg Q6HR NEB NEB Last administered on at 16:51; Start 04/25/16 at 22:00; Stop 04/27/16 at 16:44; Status DC Levalbuterol HCl (Xopenex Neb) 0.31 mg Q4HR NEB NEB Last administered on at 23:48; Start 04/25/16 at 20:00; Stop 04/27/16 at 16:43; Status DC Levalbuterol HCl (Xopenex Neb) 0.31 mg Q2HR NEB PRN NEB SHORTNESS OF BREATH; Start 04/25/16 at 18:45; Stop 04/28/16 at 10:50; Status DC Diltiazem HCl (Cardizem) 90 mg QID PEG Last administered on 07/17/16at 09:27; Start 04/25/16 at 21:00; Stop 07/17/16 at 17:52; Status DC Diltiazem HCl (Cardizem) 30 mg NOW ONCE PEG Last administered on 04/25/16at 21: 36; Start 04/25/16 at 19:15; Stop 04/25/16 at 19:16; Status DC Levalbuterol HCl (Xopenex Neb) 0.31 mg Q8HR NEB NEB ; Start 04/28/16 at 00:00; Stop 04/28/16 at 10:50; Status DC Levalbuterol HCl (Xopenex Neb) 0.63 mg Q4HR NEB PRN NEB SHORTNESS OF BREATH Last administered on 05/04/16at 15:26; Start 04/28/16 at 11:00; Stop 05/04/16 at 00:51; Status DC Levalbuterol HCl (Xopenex Neb) 0.63 mg Q8HR NEB NEB Last administered on 05/04at 00:07; Start 04/28/16 at 16:00; Stop 05/04/16 at 00:50; Status DC Polyethylene Glycol/ Electrolytes 4000 ml 4,000 ml ONCE ONCE PO Last administered on 05/05/16at 08:10; Start 05/05/16 at 08:45; Stop 05/05/16 at 08 :46; Status DC Cefazolin Sodium/ Dextrose 50 ml @ 100 mls/hr ONCE ONCE IV ; Start 05/06/16 at 14:00; Stop 05/06/16 at 14:29; Status DC Metronidazole 100 ml @ 100 mls/hr ONCE ONCE IV Last administered on at 14:00; Start 05/06/16 at 14:00; Stop 05/06/16 at 14:59; Status DC Ceftriaxone Sodium/Sodium Chloride (Rocephin Inj/NS Inj) 100 ml @ 200 mls/hr Q24H IV Last administered on 06/09/16at 12:36; Start 05/03/16 at 12:00; Stop 06/10/16 at 12:48; Status DC Levalbuterol HCl (Xopenex Neb) 0.63 mg Q8HR NEB NEB Last administered on 05/05at 08:00; Start 05/04/16 at 00:49; Stop 05/05/16 at 08:07; Status DC Levalbuterol HCl (Xopenex Neb) 0.63 mg Q4HR NEB PRN NEB SHORTNESS OF BREATH Last administered on 10/18/16t 15:44; Start 05/05/16 at 12:00 Levalbuterol HCl (Xopenex Neb) 0.63 mg Q8HR NEB NEB Last administered on 05/08at 23:56; Start 05/05/16 at 08:15; Stop 05/09/16 at 08:15; Status DC Potassium Bicarb/ Potassium Chloride (K-Lyte Cl Eff) 25 meq DAILY TUBE Last administered on 11/12/16 08:54; Start 05/28/16 at 09:00 Aspirin (Aspirin) 325 mg DAILY TUBE Last administered on 11/12/16 08:54; Start 05/27/16 at 11:40 Docusate Sodium (Colace Liq) 100 mg DAILY PRN PO constipation Last administered on 08/16/16 21:09; Start 05/27/16 at 11:45; Stop 08/31/16 at 09:00 ; Status DC Metoprolol Tartrate (Lopressor) 50 mg BID PO Last administered on 08/23/16 09: 03; Start 05/29/16 at 21:00; Stop 08/23/16 at 15:33; Status DC Acetaminophen/ Hydrocodone Bitart ([place] 5-325 Mg) 1 tab Q6H PRN TUBE BREAKTHROUGH PAIN Last administered on 08/02/16 15:11; Start 06/03/16 at 03:00 ; Stop 09/17/16 at 14:33; Status DC Insulin Aspart (NovoLOG SUPPLEMENTAL SCALE) 1 ACHS SLIDING SCALE SQ Last administered on 06/06/16at 21:35; Start 06/03/16 at 07:00; Stop 06/07/16 at 12 :24; Status DC Lactobacillus Acidophilus (Lactinex) 1 tab TID PEG Last administered on 09:13; Start 06/07/16 at 13:00; Stop 10/13/16 at 12:08; Status DC Insulin Aspart 1 1 AC BREAKFAST SQ Last administered on 11/05/16 07:00; Start 06/08/16 at 07:00 Ceftriaxone Sodium/Sodium Chloride (Rocephin Inj/NS Inj) 100 ml @ 200 mls/hr Q24H IV Last administered on 07/28/16 12:19; Start 06/10/16 at 12:00; Stop 07/29/16 at 13:30; Status DC Heparin Sodium (Porcine) (Heparin Inj) 5,000 units Q12HR SQ Last administered on 06/11/16at 00:58; Start 06/10/16 at 14:15; Stop 06/11/16 at 06:21; Status DC Heparin Sodium (Porcine) (Heparin Inj) 5,000 units Q8HR SQ Last administered on 11/12/16 06:11; Start 06/11/16 at 14:00 Diltiazem HCl (Cardizem) 30 mg QID PEG Last administered on 08/16/16 08:31; Start 07/17/16 at 18:00; Stop 08/16/16 at 12:06; Status DC Bacitracin 1 applic 1 applic BID TOP Last administered on 11/12/16 08:55; Start 07/20/16 at 10:00 Lactated Ringer's 1,000 ml @ 30 mls/hr Q24H IV ; Start 07/21/16 at 17:45; Stop 08/14/16 at 12:08; Status DC Sodium Chloride (NS 500 ml Inj) 500 ml @ 30 mls/hr [id number] IV ; Start 07/21/16 at 17:45; Stop 07/22/16 at 17:44; Status DC Insulin Human Regular (NovoLIN R INJ) See Protocol Table ... UNSCH X1 PRN SQ SEE PROTOCOL; Start 07/21/16 at 17:45; Stop 07/22/16 at 17:44; Status DC Metoprolol Tartrate (Lopressor) 25 mg UNSCH X1 PRN PO SEE LABEL COMMENTS; Start 07/21/16 at 17:45; Stop 07/22/16 at 17:44; Status DC Lidocaine/ Epinephrine (Xylocaine-Epi 1%-1:100,000 Inj) 40 ml STK-MED ONCE .ROUTE Last administered on 07/22/16 10:56; Start 07/22/16 at 10:04; Stop at 10:05; Status DC Ketamine HCl (Ketalar Inj) 500 mg STK-MED ONCE .ROUTE ; Start 07/22/16 at 10:50; Stop 07/22/16 at 10:51; Status DC Propofol 600 mg 600 mg STK-MED ONCE IV ; Start 07/22/16 at 12:00; Stop 07/23/16 at 14:36; Status DC Dextrose 1,000 ml @ 40 mls/hr Q24H ONCE IV Last administered on 07/28/16 14:33 ; Start 07/28/16 at 14:00; Stop 07/29/16 at 13:59; Status DC Ampicillin Sodium/ Sulbactam Sodium/ Sodium Chloride (Unasyn Inj/NS Inj) 100 ml @ 200 mls/hr Q6H IV Last administered on 08/01/16 12:30; Start 07/29/16 at 14: 00; Stop 08/01/16 at 14:13; Status DC Ondansetron HCl 4 mg 4 mg ONCE ONCE IV PUSH Last administered on 07/30/16 02: 46; Start 07/30/16 at 00:30; Stop 07/30/16 at 00:33; Status DC Lactated Ringer's 1,000 ml @ 30 mls/hr Q24H IV ; Start 07/30/16 at 06:00; Stop 08/14/16 at 12:09; Status DC Sodium Chloride (NS 500 ml Inj) 500 ml @ 30 mls/hr [id number] IV ; Start 07/30/16 at 06:00; Stop 07/31/16 at 05:59; Status DC Pantoprazole Sodium (Protonix Inj) 40 mg Q12H IV PUSH Last administered on 11/12 09:17; Start 07/30/16 at 10:15 Propofol 200 mg 200 mg STK-MED ONCE IV ; Start 07/30/16 at 09:41; Stop 07/30/16 at 10:19; Status DC Piperacillin Sod/ Tazobactam Sod (Zosyn 4.5 Gm Premix) 100 ml @ 200 mls/hr Q6H IV Last administered on 08/07/16 09:37; Start 08/01/16 at 16:00; Stop at 16:10; Status DC Linezolid (Zyvox) 600 mg Q12HR PO Last administered on 08/22/16 09:10; Start at 21:00; Stop 08/22/16 at 15:55; Status DC Sodium Chloride ([place]) 1 spray BID NASAL Last administered on 08:55; Start 08/01/16 at 21:00 Metronidazole 500 mg 500 mg Q8H PO Last administered on 08/08/16 08:28; Start 08/07/16 at 16:00; Stop 08/08/16 at 16:10; Status DC Sodium Chloride (NS 1000 ml Inj) 1,000 ml @ 42 mls/hr [id number] IV Last administered on 08/14/16 12:44; Start 08/14/16 at 12:00; Stop 08/15/16 at 10:56 ; Status DC Fentanyl Citrate (fentaNYL INJ) 250 mcg STK-MED ONCE .ROUTE Last administered on 08/14/16 15:36; Start 08/14/16 at 15:36; Stop 08/14/16 at 15:37; Status DC Iohexol (Omnipaque 350 Inj) 30 ml STK-MED ONCE G-TUBE Last administered on 08/14 15:45; Start 08/14/16 at 15:52; Stop 08/14/16 at 15:53; Status DC Diltiazem HCl (Cardizem) 30 mg QID PEG Last administered on 11/11/16 21:08; Start 08/16/16 at 13:00 Polyethylene Glycol (Miralax) 17 gm ONCE ONCE PEG Last administered on 11:32; Start 08/17/16 at 12:00; Stop 08/17/16 at 12:01; Status DC Amoxicillin 500 mg 500 mg Q8HR PO Last administered on 11/12/16 06:11; Start 08/22/16 at 22:00 Cefepime HCl/ Sodium Chloride (Maxipime Inj/NS Inj) 100 ml @ 200 mls/hr Q8H IV Last administered on 09/03/16 10:46; Start 08/23/16 at 16:00; Stop 09/03/16 at 15:02; Status DC Metoprolol Tartrate (Lopressor) 75 mg BID PO Last administered on 09/13/16 08: 42; Start 08/23/16 at 21:00; Stop 09/13/16 at 13:09; Status DC Docusate Sodium (Colace Liq) 100 mg BID PO Last administered on 11/12/16 08:54 ; Start 08/30/16 at 21:00 Sennosides (Senokot) 17.2 mg DAILY PO Last administered on 09/25/16 08:36; Start 08/30/16 at 14:00; Stop 09/25/16 at 16:09; Status DC Lactulose (Lactulose Liq) 30 ml DAILY PO Last administered on 11/12/16 08:54; Start 09/02/16 at 15:30 Artificial Tears (Tears Naturale Opth Soln) 1 drop BID EACH EYE Last administered on 11/12/16 08:55; Start 09/05/16 at 21:00 Midazolam HCl (Versed Inj) 2 mg STK-MED ONCE .ROUTE Last administered on 11:37; Start 09/09/16 at 11:37; Stop 09/09/16 at 11:38; Status DC Fentanyl Citrate (fentaNYL INJ) 100 mcg STK-MED ONCE .ROUTE Last administered on 09/09/16 11:38; Start 09/09/16 at 11:38; Stop 09/09/16 at 11:39; Status DC Iohexol (Omnipaque 350 Inj) 20 ml STK-MED ONCE G-TUBE Last administered on 09/09 11:50; Start 09/09/16 at 11:50; Stop 09/09/16 at 12:15; Status DC Metoprolol Tartrate (Lopressor) 50 mg BID PO Last administered on 11/11/16 21: 08; Start 09/13/16 at 21:00 Acetaminophen/ Hydrocodone Bitart ([place] 5-325 Mg) 1 tab Q6H PEG ; Start at 11:00; Stop 09/17/16 at 14:25; Status DC Acetaminophen/ Hydrocodone Bitart ([place] 5-325 Mg) 1 tab DAILY@1600 PO ; Start 09/17/16 at 16:00; Stop 09/17/16 at 16:00; Status DC Morphine Sulfate (Morphine Inj) 1 mg Q24H PRN IV PUSH dressing change 30 min before Last administered on 10/22/16 02:00; Start 09/17/16 at 14:30 Acetaminophen/ Hydrocodone Bitart ([place] 5-325 Mg) 1 tab DAILY@0000 PO Last administered on 09/17/16 23:43; Start 09/18/16 at 00:00; Stop 09/20/16 at 12:46; Status DC Acetaminophen/ Hydrocodone Bitart ([place] 5-325 Mg) 1 tab Q8H PO Last administered on 10/13/16 13:38; Start 09/20/16 at 13:00; Stop 10/13/16 at 18:29 ; Status DC Ketoconazole (Nizoral 2% Cream) 1 applic Q12HR TOPICAL Last administered on 21:11; Start 09/24/16 at 21:00 Sennosides (Senna Liq) 8.8 mg DAILY@1600 PO Last administered on 11/09/16 16: 01; Start 09/25/16 at 17:00 Sodium Biphosphate/ Sodium Phosphate (Fleets Enema (Adult)) 133 ml UNSCH PRN DE CONSTIPATION; Start 09/25/16 at 16:00 Bisacodyl (Dulcolax Supp) 10 mg DAILY PRN RECTAL CONSTIPATION Last administered on 10/20/16 12:53; Start 09/26/16 at 15:30 Bisacodyl (Dulcolax Supp) 10 mg ONCE ONCE RECTAL Last administered on 16:10; Start 09/26/16 at 15:30; Stop 09/26/16 at 15:31; Status DC Cyclobenzaprine HCl (Flexeril) 5 mg Q8H PO Last administered on 10/13/16 13:37 ; Start 10/13/16 at 12:15; Stop 10/13/16 at 18:27; Status DC Magnesium Hydroxide (Milk Of Magnesia Liq) 30 ml DAILY PRN PO constipation Last administered on 10/20/16 12:54; Start 10/13/16 at 14:30 Acetaminophen/ Hydrocodone Bitart ([place] 5-325 Mg) 1 tab Q6H PRN PO PAIN SCALE 1 TO 10; Start 10/13/16 at 18:30; Stop 10/13/16 at 18:30; Status DC Acetaminophen/ Hydrocodone Bitart ([place] 5-325 Mg) 1 tab Q6H PRN PO PAIN SCALE 1 TO 10 Last administered on 11/07/16 14:03; Start 10/13/16 at 18:45 Cyclobenzaprine HCl (Flexeril) 5 mg HS PRN PO muscle relaxant Last administered on 10/22/16 21:17; Start 10/14/16 at 14:15 Fentanyl Citrate (fentaNYL INJ) 100 mcg STK-MED ONCE .ROUTE ; Start 10/23/16 at 16:51; Stop 10/23/16 at 16:52; Status DC Glycerin (Glycerin Adult Supp) 2 gm ONCE ONCE RECTAL Last administered on 15:29; Start 10/26/16 at 15:00; Stop 10/26/16 at 15:01; Status DC Nitrofurantoin Macrocrystals (Macrobid) 100 mg BIDPC PO Last administered on t 09:36; Start 10/26/16 at 15:00; Stop 10/29/16 at 14:59; Status DC Date of Insertion: Oct 12, 2016 A/P Problem List: (1) CVA (cerebral vascular accident) ICD Code: I63.9 Status: Acute (2) A-fib ICD Code: I48.91 Status: Chronic (3) DM (diabetes mellitus) ICD Code: E11.9 Status: Chronic Assessment and Plan 1. 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 Tracks with his eyes. Continue Keppra for seizure prophylaxis. PT/OT signed off as patient is unable to participate. -Need placement. Difficult. Appreciate case management assistance. 2. Clogged PEG tube on 10/14 and 10/23 status post PEG tube change, tube feedings to Glucerna 1.5 at 50 ml per hour. 3. Chronic respiratory failure -Secondary to CVA. Status post tracheostomy. Continue pulmonary toilet and bronchodilators as needed. Continue trach care, suctioning. Levsin as needed. -Pulmonary currently following . Appreciate assistance. 4. Atrial fibrillation -Continue rate control with Cardizem and metoprolol. Echocardiogram in November 2015 shows preserved ejection fraction. Coumadin discontinued secondary to bleeding. Rate controlled. Continue aspirin and prophylactic heparin dose. 5. History of non-Hodgkin's lymphoma - Status post brain biopsy on December 13 by neurosurgery. Pathology consistent with acute infarct without evidence of lymphoma. Oncology has signed Off 6. Diabetes mellitus -Hemoglobin A1c is 7. Continue Levemir. Monitor Accu-Cheks and cover with sliding scale insulin. Overall blood sugar continues well controlled. 7. Decubitus ulcer stage IV -Continue wound care, twice-daily dressing changes. Wound care recommendations. Continue pressure relief measures including turning and positioning. Patient's family has declined a diverting colostomy. Previous Wound culture growing Klebsiella. on Augmentin. Status post wide excision of sacral skin and biopsy of the cavity lining with debridement on 07/22/16. ID specialist recommended to continue on Amoxicillin and Cefepime for two months will be until the end of September or first days of October. 8. Gastric ulcer, reflux esophagitis - EGD on 07/30/16 showed gastric ulcers. Appreciate GI recommendations. Continue PPI. H&H stable. 9. UTI pseudomonas aeruginosa treated with abx - Resolved. - Repeat Ucx 08/28/16 negative. 10. Constipation: -Having regular bowel movements. -on lactulose. Monitor. 11. Anemia Hemoglobin 9.4 stable DVT prophylaxis on Heparin Discussed with his Mother in the room. Discharge Planning dc planning to SNF-no funding- SSI pending. Problem Qualifiers (1) DM (diabetes mellitus): Qualified Code: E11.9 - Type 2 diabetes mellitus without complications Patsy Wilkes MD Nov 12, 2016 11:00
[2016-11-12] MEDS: SENNOSIDES SYRUP 8.8 MG/5 ML CUP PO SCH (16:45)
[2016-11-12] MEDS: PARoxetine HCL SUSP 20 MG/10 ML UDC PEG SCH (16:45)
[2016-11-12] MEDS: INSULIN DETEMIR 100 UNITS/ML VIAL SQ SCH (22:25)
[2016-11-13] VITALS (8 sets, daily range): BP systolic 103–117; BP diastolic 65–79; PULSE 76–95; RESP 18–20; TEMP 96.8–98.7; O2SAT 94–99
[2016-11-13] MEDS: FREE WATER TUBE SCH ×6 (04:00→20:00)
[2016-11-13] MEDS: ACETIC ACID 0.25% SOLN 1000 ML IRR BTL IRRIGATION SCH ×3 (05:42→22:42)
[2016-11-13] MEDS: AMOXICILLIN (TRIHYDRATE) 500 MG CAP PO SCH ×3 (05:42→22:38)
[2016-11-13] MEDS: HEPARIN SODIUM - SQ 10,000 UNITS/ML VIAL SQ SCH ×3 (05:42→22:39)
[2016-11-13] MEDS: INSULIN ASPART SUPPLEMENTAL SCALE SQ SCH (06:21)
[2016-11-13] MEDS: POTASSIUM CHLORIDE 25 MEQ EFFERVESCENT TAB TUBE SCH (08:48)
[2016-11-13] MEDS: LACTULOSE SYRUP 20 GM/30 ML CUP PO SCH (08:48)
[2016-11-13] MEDS: DILTIAZEM HCL 30 MG TAB PEG SCH ×4 (08:48→22:39)
[2016-11-13] MEDS: levETIRAcetam 500 MG/5 ML UDC TUBE SCH ×2 (08:48→22:39)
[2016-11-13] MEDS: METOPROLOL TARTRATE 50 MG TAB PO SCH ×2 (08:48→22:39)
[2016-11-13] MEDS: ASPIRIN 325 MG TAB TUBE SCH (08:48)
[2016-11-13] MEDS: SODIUM CHLORIDE 0.65% NASAL SPRAY 45 ML BTL NASAL SCH ×2 (08:49→21:00)
[2016-11-13] MEDS: BACITRACIN TOP OINT 15 GM TUBE TOP SCH ×2 (08:49→22:41)
[2016-11-13] MEDS: NYSTATIN 100,000 U/GM PWD 15 GM BTL TOPICAL SCH ×2 (08:49→22:41)
[2016-11-13] MEDS: DOCUSATE SODIUM 100 MG/10 ML UDC PO SCH ×2 (08:49→21:00)
[2016-11-13] MEDS: ARTIFICIAL TEARS OPTH SOLN 15 ML BTL EACH EYE SCH ×2 (08:49→22:41)
[2016-11-13] MEDS: KETOCONAZOLE 2% CREAM 15 GM TOPICAL SCH ×2 (08:49→21:00)
--- NOTE | 2016-11-13 09:56 | HHI.PR ---
Subjective Remarks f/u for CVA patient continues to be nonverbal. his mother is for PT/OT to see patient. otherwise no acute events. Objective Vitals Vital Signs Date Time Temp Pulse Resp B/P Pulse Ox O2 Delivery O2 Flow Rate FiO2 11/13/16 08:44 98.5 92 18 111/69 97 11/13/16 06:16 98.6 90 20 111/69 94 11/13/16 01:20 96.8 76 20 103/66 98 11/12/16 20:00 95 11/12/16 20:00 96.3 91 20 105/61 98 11/12/16 17:51 100 T-piece 6.00 28 11/12/16 15:48 95.7 90 21 121/78 100 11/12/16 13:01 107/73 11/12/16 11:51 96.5 96 21 136/80 98 I/O 11/12/16 11/12/16 11/12/16 11/13/16 11/13/16 11/13/16 07:00 15:00 23:00 07:00 15:00 23:00 Intake Total 200 ml 200 ml Output Total 600 ml 350 ml 1200 ml Balance -600 ml -350 ml 200 ml -1000 ml Tube Irrigant 200 ml 200 ml Output Urine Total 600 ml 350 ml 1200 ml # Bowel Movements 0 1 Objective Remarks Gen NAD CV RRR. no r//g Resp trach in place CTA B/L abd soft NDNT NEURO patient is sleepy today but can be aroused. Procedures 01/02/16 PEG placement 01/02/16 tracheostomy 07/22/2016 Wide excision of sacral skin wound, biopsy of the cavity lining and debridement. PEG tube replacement 07/29/16 VAC changes- M-W-F 4/5- GJ tube replacement Medications and IVs Current Medications IV Flush (NS Flush) 2 ml UNSCH PRN IVF FLUSH AFTER USING IV ACCESS Last administered on 09/28/16t 21:18; Start 12/21/15 at 06:00 Ondansetron HCl (Zofran Inj) 4 mg STK-MED ONCE .ROUTE ; Start 12/21/15 at 06:22; Stop 12/21/15 at 06:23; Status DC Ondansetron HCl (Zofran Inj) 4 mg ONCE ONCE IV PUSH Last administered on 06:43; Start 12/21/15 at 06:30; Stop 12/21/15 at 06:31; Status DC Diltiazem HCl 20 mg 20 mg ONCE ONCE IV Last administered on 12/21/15 06:42; Start 12/21/15 at 06:30; Stop 12/21/15 at 06:31; Status DC Diltiazem HCl/ Sodium Chloride (Cardizem Inj/NS Inj) 125 ml @ 0 mls/hr TITRATE IV Last administered on 12/21/15at 06:47; Start 12/21/15 at 06:30; Stop 12/21/15 at 13:00; Status DC Acetaminophen (Tylenol) 650 mg ONCE ONCE PO ; Start 12/21/15 at 06:45; Stop 12/20 at 06:46; Status DC Lorazepam (Ativan Inj) 1 mg ONCE ONCE IV PUSH Last administered on 12/21/15at 07 :22; Start 12/21/15 at 07:15; Stop 12/21/15 at 07:16; Status DC Etomidate (Amidate Inj) 40 mg STK-MED ONCE .ROUTE Last administered on 08:17; Start 12/21/15 at 07:37; Stop 12/21/15 at 07:38; Status DC Succinylcholine Chloride 200 mg 200 mg STK-MED ONCE .ROUTE Last administered on 12/21/15at 08:18; Start 12/21/15 at 07:37; Stop 12/21/15 at 07:38; Status DC Propofol (Diprivan 1000 Mg/100ml Inj) 100 ml @ As Directed STK-MED ONCE .ROUTE Last administered on 12/21/15at 08:19; Start 12/21/15 at 07:46; Stop 12/21/15 at 07:47; Status DC Propofol (Diprivan 1000 Mg/100ml Inj) search Sets for Drip. NOW PRN IV SEDATION Last administered on 12/22/15 06:25; Start 12/21/15 at 08:30; Stop 12/28 at 15:43; Status DC Gadodiamide (Omniscan Pf Inj) 18 ml STK-MED ONCE IV Last administered on at 10:11; Start 12/21/15 at 10:11; Stop 12/21/15 at 10:12; Status DC Pantoprazole Sodium (Protonix Inj) 40 mg DAILY IV Last administered on at 07:39; Start 12/21/15 at 13:00; Stop 01/03/16 at 10:10; Status DC Albuterol/ Ipratropium (Duoneb Neb) 1 ampule Q6HR NEB INH Last administered on 12/25/15at 07:51; Start 12/21/15 at 13:00; Stop 12/25/15 at 13:00; Status DC Miscellaneous Information 1 [id number] Last administered on 12/21/15at 13:00; Start 12/21/15 at 13:00; Stop 01/12/16 at 11:47; Status DC Chlorhexidine Gluconate (Chlorhexidine 2% Cloth) 3 pack Taper DAILY@04 TOP Last administered on 01/11/16at 04:10; Start 12/22/15 at 04:00; Stop 01/12/16 at 11:47; Status DC Chlorhexidine Gluconate 3 pack 3 pack UNSCH PRN TOP HYGIENIC CARE; Start at 13:00; Stop 01/12/16 at 11:47; Status DC Sodium Chloride (NS 1000 ml Inj) 1,000 ml @ 75 mls/hr [id number] IV Last administered on 12/22/15at 17:00; Start 12/21/15 at 13:00; Stop 12/22/15 at 19:01; Status DC Dextrose (D50w (Vial) Inj) 25 ml UNSCH PRN IV PUSH HYPOGLYCEMIA-SEE COMMENTS; Start 12/21/15 at 13:00; Stop 04/19/16 at 17:19; Status DC Glucagon (Glucagon Inj) 1 mg UNSCH PRN OTHER HYPOGLYCEMIA-SEE COMMENTS; Start 12/21/15 at 13:00; Stop 04/19/16 at 17:19; Status DC Insulin Human Regular (NovoLIN R SUPPLEMENTAL SCALE) 1 Q6H SQ Last administered on 01/04/16at 06:31; Start 12/21/15 at 13:00; Stop 01/04/16 at 10:05 ; Status DC Levetriacetam (Keppra) 500 mg Q12HR PO Last administered on 12/27/15at 09:00; Start 12/21/15 at 13:45; Stop 12/27/15 at 09:44; Status DC Heparin Sodium (Porcine) (Heparin Inj) 5,000 units BID SQ Last administered on 12/22/15at 20:52; Start 12/21/15 at 21:00; Stop 12/23/15 at 08:32; Status DC Warfarin Sodium (Coumadin) 7.5 mg ONCE ONCE PO Last administered on 12/21/15 21:43; Start 12/21/15 at 21:00; Stop 12/21/15 at 21:01; Status DC Warfarin Sodium (Coumadin) 5 mg DAILY@16 PO Last administered on 12/23/15at 16:00 ; Start 12/22/15 at 16:00; Stop 12/26/15 at 09:29; Status DC Patient Medication Teaching (Coumadin Booklet) 1 ONCE ONCE XX Last administered on 12/21/15at 20:15; Start 12/21/15 at 20:15; Stop 12/21/15 at 20:16; Status DC Chlorhexidine Gluconate (Peridex 0.12% Liq) 15 ml BID@08,20 MT Last administered on 01/12/16at 08:00; Start 12/22/15 at 20:00; Stop 01/12/16 at 11:47 ; Status DC Gadodiamide 20 ml 20 ml STK-MED ONCE IV Last administered on 12/22/15at 09:55; Start 12/22/15 at 09:55; Stop 12/22/15 at 09:56; Status DC Pharmacy Profile Note ml @ 0 mls/hr UNSCH OTHER ; Start 12/22/15 at 11:00; Stop 12/22/15 at 19:43; Status DC Sodium Chloride 1,000 ml @ 50 mls/hr Q20H IV Last administered on 12/24/15at 20: 02; Start 12/22/15 at 18:44; Stop 12/25/15 at 11:52; Status DC Pharmacy Profile Note (Coumadin Consult Pharmacy) 0 ml @ 0 mls/hr UNSCH OTHER ; Start 12/22/15 at 19:45; Stop 01/04/16 at 12:25; Status DC Acetaminophen 650 mg 650 mg Q6H PRN PO TEMP > 100 Last administered on at 13:24; Start 12/23/15 at 02:45; Stop 12/30/15 at 15:04; Status DC Potassium Chloride 100 ml @ 50 mls/hr Q2H PRN IV For Potassium 2.8 - 3.2 mEq/L ; Start 12/23/15 at 08:30; Stop 01/09/16 at 11:14; Status DC Potassium Chloride (KCl 20 Meq Premix Inj) 100 ml @ 50 mls/hr Q2H PRN IV For Potassium 2.8 - 3.2 mEq/L; Start 12/23/15 at 08:30; Stop 01/09/16 at 11:14; Status DC Potassium Chloride 40 meq 40 meq UNSCH PRN PO/TUBE For Potassium 3.3 - 3.5 mEq/ L; Start 12/23/15 at 08:30; Stop 01/09/16 at 11:14; Status DC Potassium Chloride 100 ml @ 25 mls/hr UNSCH PRN IV For Potassium 3.3 - 3.5 mEq /L; Start 12/23/15 at 08:30; Stop 01/09/16 at 11:14; Status DC Potassium Chloride 100 ml @ 50 mls/hr Q2H PRN IV For Potassium 3.3 - 3.5 mEq/L ; Start 12/23/15 at 08:30; Stop 01/09/16 at 11:14; Status DC Magnesium Sulfate/ Sodium Chloride (Magnesium Sulfate Inj/NS Inj) 100 ml @ 50 mls/hr UNSCH PRN IV For Magnesium 0.9 - 1.1 mg/dL; Start 12/23/15 at 08:30; Stop 01/09/16 at 11:14; Status DC Magnesium Oxide 800 mg 800 mg UNSCH PRN PO For Magnesium 1.2 - 1.6 mg/dL; Start 12/23/15 at 08:30; Stop 01/09/16 at 11:14; Status DC Magnesium Sulfate/ Sodium Chloride (Magnesium Sulfate Inj/NS Inj) 100 ml @ 50 mls/hr UNSCH PRN IV For Magnesium 1.2 - 1.6 mg/dL; Start 12/23/15 at 08:30; Stop 01/09/16 at 11:14; Status DC Potassium Phosphate 2000 mg 2,000 mg Q4H PRN PO For Phosphorus < 2.5 mg/dL; Start 12/23/15 at 08:30; Stop 01/09/16 at 11:14; Status DC Sodium Phosphate/ Sodium Chloride (Sodium Phosphate Inj/NS 250 ml Inj) 250 ml @ 42 mls/hr UNSCH PRN IV For Phosphorus < 2.5 mg/dL; Start 12/23/15 at 08:30; Stop 01/09/16 at 11:14; Status DC Potassium Chloride (KCl 40 Meq/30 ml Liq) 40 meq UNSCH PRN PO/TUBE SEE LABEL COMMENTS; Start 12/23/15 at 08:30; Stop 01/09/16 at 11:14; Status DC Potassium Phosphate 2000 mg 2,000 mg UNSCH PRN PO/TUBE SEE LABEL COMMENTS; Start 12/23/15 at 08:30; Stop 01/09/16 at 11:14; Status DC Potassium Phosphate 30 mmol/ Sodium Chloride 260 ml @ 42 mls/hr UNSCH PRN IV SEE LABEL COMMENTS; Start 12/23/15 at 08:30; Stop 01/09/16 at 11:14; Status DC Sodium Chloride 1,000 ml @ 75 mls/hr [id number] IV ; Start 12/23/15 at 08:30; Stop 12/23/15 at 08:30; Status DC Piperacillin Sod/ Tazobactam Sod 50 ml @ 100 mls/hr Q6H IV Last administered on 12/30/15at 10:02; Start 12/23/15 at 10:00; Stop 12/30/15 at 14:50; Status DC Vancomycin HCl/ Sodium Chloride (Vancomycin Inj/ NS 250 ml Inj) 250 ml @ 250 mls/hr Q12H IV Last administered on 12/29/15at 09:01; Start 12/24/15 at 08:45; Stop 12/29/15 at 15:33; Status DC Warfarin Sodium (Coumadin) 4 mg DAILY@16 PO Last administered on 12/28/15at 16:00 ; Start 12/26/15 at 16:00; Stop 01/04/16 at 12:25; Status DC Levetriacetam (Keppra Liq) 500 mg Q12HR TUBE Last administered on 11/13/16t 08 :48; Start 12/27/15 at 21:00 Docusate Sodium (Colace Liq) 100 mg Q12HR TUBE Last administered on 01/15/16at 09:01; Start 12/27/15 at 21:00; Stop 04/16/16 at 08:50; Status DC Sennosides (Senna Liq) 8.8 mg DAILY TUBE Last administered on 01/15/16at 09:01 ; Start 12/27/15 at 17:00; Stop 01/15/16 at 20:37; Status DC Bisacodyl (Dulcolax Supp) 10 mg ONCE ONCE RECTAL ; Start 12/27/15 at 16:15; Stop 12/27/15 at 16:15; Status DC Albuterol/ Ipratropium (Duoneb Neb) 1 ampule Q4HR NEB PRN NEB RESPIRATORY DISTRESS Last administered on 12/29/15at 12:17; Start 12/27/15 at 22:00; Stop at 08:16; Status DC Bisacodyl (Dulcolax Supp) 10 mg ONCE ONCE RECTAL ; Start 12/28/15 at 12:00; Stop 12/28/15 at 12:01; Status DC Sodium Chloride (Sodium Chloride) 1 gm BID TUBE Last administered on 12/29/15at 09:02; Start 12/28/15 at 21:00; Stop 12/29/15 at 15:43; Status DC Lactulose (Lactulose Liq) 30 ml DAILY TUBE Last administered on 12/29/15at 09:02 ; Start 12/28/15 at 20:30; Stop 12/29/15 at 15:43; Status DC Levofloxacin (Levaquin) 750 mg DAILY@16 TUBE ; Start 12/29/15 at 16:00; Stop 05/05 at 16:00; Status DC Sodium Chloride (Sodium Chloride) 1 gm DAILY TUBE Last administered on at 07:29; Start 12/30/15 at 09:00; Stop 12/31/15 at 14:08; Status DC Water 200 ml 200 ml Q6HR G-TUBE Last administered on 12/31/15at 04:19; Start 06/05 at 14:45; Stop 12/31/15 at 07:31; Status DC Ceftriaxone Sodium/Sodium Chloride (Rocephin Inj/NS Inj) 100 ml @ 200 mls/hr Q12H IV Last administered on 01/03/16at 02:47; Start 12/30/15 at 15:00; Stop at 10:09; Status DC Acetaminophen (Tylenol 650 Mg/ 20 ml Liq) 650 mg Q6H PRN TUBE TEMP >100.4 Last administered on 10/25/16t 15:13; Start 12/30/15 at 15:15 Lactobacillus Acidophilus (Lactinex Pkt) 1 gm BID TUBE Last administered on at 09:00; Start 12/30/15 at 21:00; Stop 02/10/16 at 14:30; Status DC Enoxaparin Sodium (Lovenox Inj) 90 mg Q12H SQ Last administered on 01/01/16at 21 :57; Start 12/31/15 at 08:00; Stop 01/03/16 at 10:33; Status DC Water (Free Water) 100 ml Q12H G-TUBE ; Start 12/31/15 at 18:00; Stop 12/31/15 at 18:00; Status DC Acetaminophen/ Hydrocodone Bitart (Cascilla 5-325 Mg) 1 tab Q6H PRN PO PAIN Last administered on 05/26/16at 20:46; Start 12/31/15 at 15:00; Stop 06/02/16 at 21: 44; Status DC Fentanyl Citrate (Sublimaze Inj) 25 mcg Q1H PRN IV PUSH BREAKTHROUGH PAIN; Start 12/31/15 at 15:00; Stop 03/06/16 at 10:03; Status DC Water (Free Water) 200 ml Q8H G-TUBE Last administered on 01/01/16at 17:55; Start 12/31/15 at 18:00; Stop 01/02/16 at 09:56; Status DC Sodium Chloride (Sodium Chloride) 1 gm BID TUBE Last administered on 01/03/16at 07:39; Start 12/31/15 at 21:00; Stop 01/03/16 at 09:08; Status DC Miscellaneous Information Hold Anticoagulation after midni... ONCE ONCE OTHER ; Start 01/01/16 at 10:15; Stop 01/01/16 at 10:29; Status DC Sodium Chloride (NS 1000 ml Inj) 1,000 ml @ 50 mls/hr Q20H IV Last administered on 01/02/16at 12:26; Start 01/01/16 at 18:00; Stop 01/03/16 at 10:07 ; Status DC Midazolam HCl (Versed Inj) 5 mg STK-MED ONCE .ROUTE ; Start 01/02/16 at 12:47; Stop 01/02/16 at 12:48; Status DC Vecuronium [place] (Norcuron 10 Mg Inj) 10 mg STK-MED ONCE .ROUTE ; Start at 12:47; Stop 01/02/16 at 12:48; Status DC Fentanyl Citrate (Sublimaze Inj) 250 mcg ONCE ONCE IV PUSH Last administered on 01/02/16at 15:00; Start 01/02/16 at 15:00; Stop 01/02/16 at 15:01; Status DC Midazolam HCl (Versed Inj) 10 mg ONCE ONCE IV PUSH Last administered on at 15:00; Start 01/02/16 at 15:00; Stop 01/02/16 at 15:01; Status DC Rocuronium [place] (Zemuron Inj) 100 mg BOLUS ONCE IV Last administered on at 15:00; Start 01/02/16 at 15:00; Stop 01/02/16 at 15:01; Status DC Ketamine HCl (Ketalar Inj) 500 mg STK-MED ONCE .ROUTE ; Start 01/02/16 at 14:30 ; Stop 01/02/16 at 14:31; Status DC Propofol 230 mg 230 mg STK-MED ONCE IV ; Start 01/02/16 at 16:51; Stop 01/02/16 at 16:52; Status DC Sodium Chloride (NS 1000 ml Inj) 1,000 ml @ 0 mls/hr Q0M IV ; Start 01/03/16 at 10:15; Stop 01/17/16 at 17:30; Status DC Ranitidine HCl (Zantac Liq) 150 mg Q12HR PO Last administered on 01/17/16at 07: 39; Start 01/04/16 at 09:00; Stop 01/17/16 at 15:23; Status DC Enoxaparin Sodium 90 mg 90 mg Q12HR SQ Last administered on 01/11/16at 10:01; Start 01/04/16 at 09:00; Stop 01/11/16 at 12:35; Status DC Sodium Chloride (NS 500 ml Inj) 500 ml @ 0 mls/hr BOLUS ONCE IV Last administered on 01/03/16at 22:57; Start 01/03/16 at 23:00; Stop 01/03/16 at 23:01 ; Status DC Insulin Aspart (NovoLOG SUPPLEMENTAL SCALE) 1 Q6HR SQ Last administered on at 12:00; Start 01/04/16 at 12:00; Stop 03/24/16 at 13:58; Status DC Potassium Chloride (KCl 40 Meq/30 ml Liq) 40 meq Q4H NG Last administered on at 16:21; Start 01/04/16 at 13:00; Stop 01/04/16 at 17:01; Status DC Warfarin Sodium 5 mg 5 mg DAILY@1600 PO Last administered on 01/09/16at 17:21; Start 01/04/16 at 16:00; Stop 01/10/16 at 10:06; Status DC Pharmacy Profile Note (Coumadin Consult Pharmacy) 0 ml @ 0 mls/hr UNSCH XX ; Start 01/04/16 at 12:30; Stop 04/20/16 at 12:04; Status DC Insulin Detemir (Levemir Inj) 10 units Q12HR SQ Last administered on 01/05/16at 08:00; Start 01/04/16 at 21:00; Stop 01/05/16 at 08:42; Status DC Insulin Detemir (Levemir Inj) 5 units NOW ONCE SQ Last administered on at 13:28; Start 01/04/16 at 12:45; Stop 01/04/16 at 12:46; Status DC Albuterol/ Ipratropium (Duoneb Neb) 1 ampule Q4HR NEB PRN NEB dyspnea Last administered on 04/19/16at 02:24; Start 01/07/16 at 08:15; Stop 04/25/16 at 18:54 ; Status DC Warfarin Sodium (Coumadin) 7.5 mg ONCE ONCE PO Last administered on 01/07/16at 16:40; Start 01/07/16 at 16:00; Stop 01/07/16 at 16:01; Status DC Nystatin (Mycostatin Powder) 1 applic Q12HR TOPICAL Last administered on t 08:49; Start 01/08/16 at 21:00 Ipratropium [place] (Atrovent Neb) 0.5 mg TID NEB NEB Last administered on 02/20at 13:17; Start 01/08/16 at 20:00; Stop 02/21/16 at 17:52; Status DC Warfarin Sodium (Coumadin) 5 mg DAILY@1600 PO Last administered on 01/11/16at 14 :26; Start 01/11/16 at 16:00; Stop 01/12/16 at 09:45; Status DC Warfarin Sodium (Coumadin) 6 mg ONCE PO Last administered on 01/10/16at 17:10; Start 01/10/16 at 16:00; Stop 01/10/16 at 21:00; Status DC Metoprolol Tartrate (Lopressor) 50 mg Q12HR GT Last administered on 01/11/16at 10:02; Start 01/10/16 at 11:00; Stop 01/11/16 at 12:30; Status DC Metoprolol Tartrate (Lopressor) 50 mg TID GT Last administered on 01/14/16at 08: 24; Start 01/11/16 at 13:00; Stop 01/14/16 at 08:28; Status DC Insulin Detemir (Levemir Inj) 10 units HS SQ Last administered on 01/11/16at 22: 23; Start 01/11/16 at 21:00; Stop 01/12/16 at 11:47; Status DC Warfarin Sodium (Coumadin) 4 mg DAILY@16 PO ; Start 01/12/16 at 16:00; Stop at 16:00; Status DC Insulin Detemir (Levemir Inj) 20 units HS SQ Last administered on 01/13/16at 20: 26; Start 01/12/16 at 21:00; Stop 01/14/16 at 08:28; Status DC Warfarin Sodium (Coumadin) 2 mg DAILY@16 PO Last administered on 01/13/16at 17: 05; Start 01/12/16 at 16:00; Stop 01/14/16 at 11:23; Status DC Insulin Detemir (Levemir Inj) 22 units HS SQ Last administered on 01/14/16at 21: 37; Start 01/14/16 at 21:00; Stop 01/15/16 at 10:06; Status DC Metoprolol Tartrate (Lopressor) 75 mg TID GT Last administered on 03/10/16at 17: 43; Start 01/14/16 at 09:00; Stop 03/10/16 at 21:13; Status DC Miscellaneous (Pill Splitter) 1 ea UNSCH PRN OTHER SEE LABEL COMMENTS; Start at 08:30 Warfarin Sodium (Coumadin) 4 mg DAILY@1600 PO Last administered on 01/21/16at 16: 51; Start 01/14/16 at 16:00; Stop 01/23/16 at 09:29; Status DC Patient Medication Teaching (Coumadin Booklet) 1 ONCE ONCE XX ; Start 01/14/16 at 16:00; Stop 01/14/16 at 16:01; Status DC Insulin Detemir (Levemir Inj) 24 units HS SQ Last administered on 03/04/16at 21: 09; Start 01/15/16 at 21:00; Stop 03/05/16 at 11:17; Status DC Citalopram Hydrobromide (CeleXA) 20 mg DAILY PEG Last administered on at 08:01; Start 01/16/16 at 09:00; Stop 01/16/16 at 09:41; Status DC Sennosides (Senna Liq) 8.8 mg BID TUBE Last administered on 02/20/16at 08:32; Start 01/15/16 at 21:00; Stop 02/20/16 at 16:13; Status DC Gadodiamide 18 ml 18 ml STK-MED ONCE IV ; Start 01/16/16 at 20:40; Stop at 20:41; Status DC Sodium Chloride (NS 1000 ml Inj) 1,000 ml @ 125 mls/hr Q8H IV Last administered on 01/17/16at 15:11; Start 01/17/16 at 15:00; Stop 01/17/16 at 17:31 ; Status DC Ranitidine HCl 150 mg 150 mg Q24H PO Last administered on 07/28/16t 08:54; Start 01/18/16 at 09:00; Stop 07/30/16 at 10:05; Status DC Sodium Chloride 1,000 ml @ 75 mls/hr [id number] IV Last administered on at 05:22; Start 01/17/16 at 18:00; Stop 01/18/16 at 09:28; Status DC Sodium Chloride/ Sterile Water (Sodium Chloride 23.4% Inj/Sterile Water For Inj ) 1,009.625 ml @ 60 mls/hr [id number] IV Last administered on 01/21/16at 22:46; Start 01/18/16 at 11:00; Stop 01/22/16 at 10:09; Status DC Potassium Chloride (KCl) 40 meq ONCE ONCE PO ; Start 01/18/16 at 09:30; Stop at 09:31; Status DC Potassium Chloride (KCl 40 Meq/30 ml Liq) 40 meq ONCE ONCE TUBE Last administered on 01/18/16at 11:08; Start 01/18/16 at 11:00; Stop 01/18/16 at 11:01 ; Status DC Water (Free Water) 300 ml Q4HR TUBE Last administered on 01/19/16at 08:00; Start 01/18/16 at 12:00; Stop 01/19/16 at 10:43; Status DC Water (Free Water) 400 ml Q4HR TUBE Last administered on 04/16/16at 04:00; Start 01/19/16 at 12:00; Stop 04/16/16 at 09:09; Status DC Potassium Chloride (KCl 40 Meq/30 ml Liq) 40 meq ONCE ONCE NG Last administered on 01/19/16at 11:41; Start 01/19/16 at 11:00; Stop 01/19/16 at 11:01; Status DC Potassium Chloride 60 meq 60 meq ONCE ONCE PO/TUBE Last administered on at 13:30; Start 01/21/16 at 11:15; Stop 01/21/16 at 11:27; Status DC Sodium Chloride (1/2 NS 1000 ml Inj) 1,000 ml @ 30 mls/hr Q24H IV Last administered on 02/06/16at 11:26; Start 01/22/16 at 11:00; Stop 02/07/16 at 14:49 ; Status DC Warfarin Sodium (Coumadin) 3 mg DAILY@16 PO Last administered on 01/23/16at 17:19 ; Start 01/23/16 at 16:00; Stop 01/24/16 at 14:05; Status DC Warfarin Sodium (Coumadin) 3 mg DAILY@16 PO Last administered on 01/25/16at 15:59 ; Start 01/25/16 at 16:00; Stop 01/26/16 at 15:04; Status DC Warfarin Sodium (Coumadin) 4 mg ONCE@1600 ONCE PO Last administered on at 16:55; Start 01/24/16 at 16:00; Stop 01/24/16 at 16:01; Status DC Warfarin Sodium (Coumadin) 3 mg DAILY@16 PO ; Start 01/27/16 at 16:00; Stop at 16:00; Status DC Warfarin Sodium (Coumadin) 4 mg ONCE@1600 ONCE PO Last administered on at 16:52; Start 01/26/16 at 16:00; Stop 01/26/16 at 16:01; Status DC Potassium Chloride (KCl 40 Meq/30 ml Liq) 80 meq ONCE ONCE PO Last administered on 01/27/16at 07:45; Start 01/27/16 at 07:45; Stop 01/27/16 at 08:10; Status DC Warfarin Sodium (Coumadin) 4 mg DAILY@16 PO Last administered on 02/02/16at 17: 22; Start 01/27/16 at 16:00; Stop 02/03/16 at 11:37; Status DC Acetic Acid (Acetic Acid 0.25% Irr Btl) 10 ml Q8HR IRRIGATION Last administered on 02/05/16at 06:00; Start 01/28/16 at 22:00; Stop 02/05/16 at 15:51 ; Status DC Warfarin Sodium 3 mg 3 mg DAILY@1600 PO Last administered on 02/11/16at 17:34; Start 02/03/16 at 16:00; Stop 02/12/16 at 12:45; Status DC Ceftriaxone Sodium/Sodium Chloride (Rocephin Inj/NS Inj) 100 ml @ 200 mls/hr Q24H IV Last administered on 02/10/16at 05:23; Start 02/05/16 at 06:30; Stop at 14:32; Status DC Acetic Acid (Acetic Acid 0.25% Irr Btl) 10 ml Q8HR IRRIGATION ; Start 02/05/16 at 16:00; Status Cancel Acetic Acid (Acetic Acid 0.25% Irr Btl) 10 ml Q8HR IRRIGATION Last administered on 11/13/16t 05:42; Start 7/18/16 at 16:00 Lactobacillus Acidophilus (Lactinex) 1 tab Q12HR PO Last administered on at 08:25; Start 02/10/16 at 21:00; Stop 02/12/16 at 16:05; Status DC Warfarin Sodium (Coumadin) 4 mg DAILY@1600 PO Last administered on 02/14/16at 15 :56; Start 02/12/16 at 16:00; Stop 02/15/16 at 10:17; Status DC Paroxetine HCl (Paxil Liq) 20 mg DAILY PEG Last administered on 02/25/16at 07:33 ; Start 02/16/16 at 09:00; Stop 02/25/16 at 10:36; Status DC Warfarin Sodium (Coumadin) 3 mg DAILY@1600 PO Last administered on 02/19/16at 16: 42; Start 02/15/16 at 16:00; Stop 02/20/16 at 08:50; Status DC Warfarin Sodium (Coumadin) 4 mg DAILY@16 PO Last administered on 02/21/16at 15:54 ; Start 02/20/16 at 16:00; Stop 02/22/16 at 08:46; Status DC Sennosides (Senna Liq) 8.8 mg DAILY TUBE Last administered on 05/26/16at 08:14 ; Start 02/21/16 at 09:00; Stop 05/27/16 at 11:51; Status DC Albuterol Sulfate (Albuterol Neb) 2.5 mg QID NEB INH Last administered on at 19:51; Start 02/21/16 at 20:00; Stop 02/25/16 at 20:00; Status DC Acetylcysteine (Mucomyst 10% Neb) 1 ml QID NEB NEB Last administered on at 16:32; Start 02/21/16 at 20:00; Stop 02/23/16 at 16:01; Status DC Warfarin Sodium (Coumadin) 3 mg DAILY@16 PO Last administered on 02/22/16at 15:59 ; Start 02/22/16 at 16:00; Stop 02/23/16 at 08:56; Status DC Warfarin Sodium (Coumadin) 3 mg DAILY@16 PO Last administered on 02/28/16at 16: 17; Start 02/24/16 at 16:00; Stop 02/29/16 at 10:04; Status DC Warfarin Sodium (Coumadin) 2 mg ONCE PO Last administered on 02/23/16at 16:22; Start 02/23/16 at 16:00; Stop 02/23/16 at 21:00; Status DC Paroxetine HCl (Paxil Liq) 20 mg DAILY@1900 PEG Last administered on 03/08/16at 18:11; Start 02/26/16 at 19:00; Stop 03/09/16 at 11:31; Status DC Warfarin Sodium (Coumadin) 3 mg DAILY@16 PO Last administered on 03/06/16at 16: 22; Start 03/01/16 at 16:00; Stop 03/09/16 at 10:30; Status DC Warfarin Sodium (Coumadin) 1 mg ONCE PO Last administered on 02/29/16at 17:28; Start 02/29/16 at 16:00; Stop 02/29/16 at 21:00; Status DC Insulin Detemir (Levemir Inj) 27 units HS SQ Last administered on 03/05/16at 20: 25; Start 03/05/16 at 21:00; Stop 03/06/16 at 10:03; Status DC Patient Medication Teaching (Coumadin Booklet) 1 ONCE ONCE XX Last administered on 03/05/16at 16:00; Start 03/05/16 at 16:00; Stop 03/05/16 at 16:01 ; Status DC Insulin Detemir (Levemir Inj) 30 units HS SQ Last administered on 03/21/16at 22: 32; Start 03/06/16 at 21:00; Stop 03/22/16 at 14:48; Status DC Trimethoprim/ Sulfamethoxazole (Bactrim 800-160 Mg/20 ml Liq) 20 ml Q12HR PO Last administered on 03/14/16at 08:01; Start 03/07/16 at 11:15; Stop 03/14/16 at 11:14; Status DC Lorazepam (Ativan Inj) 0.5 mg Q4H PRN IV PUSH seizures or agitation; Start at 23:00 Metronidazole (Flagyl) 500 mg Q8H PO Last administered on 03/14/16at 15:51; Start 03/08/16 at 17:00; Stop 03/14/16 at 23:00; Status DC Warfarin Sodium (Coumadin) 2 mg DAILY@16 PO Last administered on 03/09/16at 17: 20; Start 03/09/16 at 16:00; Stop 03/10/16 at 10:33; Status DC Paroxetine HCl (Paxil) 20 mg DAILY@1900 PEG Last administered on 03/11/16at 17: 55; Start 03/09/16 at 19:00; Stop 03/12/16 at 08:31; Status DC Warfarin Sodium 3 mg 3 mg DAILY@16 PO Last administered on 04/12/16at 15:28; Start 03/10/16 at 16:00; Stop 04/12/16 at 16:39; Status DC Pharmacy Profile Note 0 ml @ 0 mls/hr UNSCH OTHER ; Start 03/10/16 at 14:15; Stop 03/18/16 at 11:33; Status DC Vancomycin HCl/ Sodium Chloride (Vancomycin Inj/ NS 500 ml Inj) 530 ml @ 265 mls/hr Q12H IV Last administered on 03/17/16at 16:26; Start 03/10/16 at 16:00; Stop 03/17/16 at 23:00; Status DC Miscellaneous Information SPECIFIC LAB TO BE ... ONCE ONCE XX Last administered on 03/12/16at 04:45; Start 03/12/16 at 03:45; Stop 03/12/16 at 03:46 ; Status DC Metoprolol Tartrate (Lopressor) 75 mg Q8HR PO Last administered on 04/02/16at 13 :13; Start 03/10/16 at 22:00; Stop 04/02/16 at 17:31; Status DC Paroxetine HCl (Paxil Liq) 20 mg DAILY@1900 PEG Last administered on 11/12/16t 16:45; Start 03/12/16 at 19:00 Warfarin Sodium (Coumadin) 1 mg ONCE PO Last administered on 03/21/16at 16:24; Start 03/21/16 at 16:00; Stop 03/21/16 at 21:00; Status DC Warfarin Sodium (Coumadin) 1 mg ONCE PO Last administered on 03/22/16at 17:46; Start 03/22/16 at 16:00; Stop 03/22/16 at 21:00; Status DC Insulin Detemir (Levemir Inj) 32 units HS SQ Last administered on 03/22/16at 20: 18; Start 03/22/16 at 21:00; Stop 03/23/16 at 13:35; Status DC Diltiazem HCl (Cardizem Cd) 120 mg DAILY PO Last administered on 04/14/16at 07: 43; Start 03/22/16 at 16:00; Stop 04/14/16 at 14:39; Status DC Hyoscyamine Sulfate (Levsin Liq) 0.125 mg Q4H PRN PEG INCREASED SECRETIONS Last administered on 04/10/16at 08:05; Start 03/22/16 at 15:15; Stop 04/11/16 at 10:24; Status DC Warfarin Sodium (Coumadin) 2 mg ONCE ONCE PO Last administered on 03/23/16at 17: 26; Start 03/23/16 at 16:00; Stop 03/23/16 at 16:01; Status DC Insulin Detemir (Levemir Inj) 34 units HS SQ Last administered on 03/23/16at 20: 01; Start 03/23/16 at 21:00; Stop 03/24/16 at 13:53; Status DC Insulin Detemir (Levemir Inj) 35 units HS SQ Last administered on 11/12/16t 22: 25; Start 03/24/16 at 21:00 Insulin Aspart (NovoLOG SUPPLEMENTAL SCALE) 1 ACHS SLIDING SCALE SQ Last administered on 04/16/16at 22:27; Start 03/24/16 at 16:00; Stop 04/19/16 at 17:19 ; Status DC Warfarin Sodium (Coumadin) 1 mg ONCE ONCE PO Last administered on 03/30/16at 16 :59; Start 03/30/16 at 16:00; Stop 03/30/16 at 16:01; Status DC Potassium Chloride (KCl 40 Meq/30 ml Liq) 40 meq ONCE ONCE NG Last administered on 03/31/16at 21:28; Start 03/31/16 at 18:30; Stop 03/31/16 at 18:31 ; Status DC Potassium Bicarb/ Potassium Chloride (K-Lyte Cl Eff) 25 meq ONCE ONCE PEG Last administered on 04/02/16at 12:01; Start 04/02/16 at 13:00; Stop 04/02/16 at 13:01; Status DC Metoprolol Tartrate (Lopressor) 75 mg BID PO Last administered on 05/28/16at 21: 03; Start 04/02/16 at 21:00; Stop 05/29/16 at 11:21; Status DC Potassium Bicarb/ Potassium Chloride (K-Lyte Cl Eff) 25 meq ONCE ONCE PEG Last administered on 04/04/16at 14:40; Start 04/04/16 at 12:30; Stop 04/04/16 at 12:31; Status DC Linezolid (Zyvox) 600 mg Q12HR PO Last administered on 04/16/16at 09:11; Start 04/05/16 at 15:00; Stop 04/16/16 at 12:00; Status DC Artificial Tears (Lacrilube Opht Oint) 1 applic Q12HR EACH EYE Last administered on 09/04/16 21:00; Start 04/10/16 at 11:00; Stop 09/05/16 at 14:38 ; Status DC Hyoscyamine Sulfate (Levsin) 0.25 mg Q4H PRN G-TUBE INCREASED SECRETIONS Last administered on 08/31/16 05:02; Start 04/11/16 at 10:30 Diatrizoate Meglum/ Diatrizoate Sod ( Gastroview Liq) 18 ml ONCE ONCE PO Last administered on 04/12/16at 16:45; Start 04/12/16 at 16:15; Stop 04/12/16 at 16:16; Status DC Warfarin Sodium (Coumadin) 3 mg DAILY@16 PO ; Start 04/13/16 at 16:00; Stop 05/27/16 at 11:51; Status DC Iohexol (Omnipaque 350 Inj) 98 ml STK-MED ONCE IV Last administered on at 21:01; Start 04/12/16 at 21:01; Stop 04/12/16 at 21:02; Status DC Diltiazem HCl (Cardizem Cd) 180 mg DAILY PO ; Start 04/15/16 at 09:00; Stop at 08:50; Status DC Ondansetron HCl (Zofran Inj) 4 mg Q6HR PRN IV PUSH nausea/vomiting Last administered on 08/10/16t 10:16; Start 04/14/16 at 19:45 Diltiazem HCl 60 mg 60 mg QID PO Last administered on 04/25/16 17:26; Start at 13:00; Stop 04/25/16 at 19:06; Status DC Sodium Chloride 500 ml @ 500 mls/hr BOLUS ONCE IV Last administered on at 09:15; Start 04/15/16 at 09:15; Stop 04/15/16 at 10:14; Status DC Potassium Chloride/Dextrose/ Sodium Chloride (KCl Inj/D5W-NS 1000 ml Inj) 1,005 ml @ 100 mls/hr Q10H3M IV Last administered on 04/15/16at 21:03; Start at 11:00; Stop 04/16/16 at 09:09; Status DC Enoxaparin Sodium (Lovenox Inj) 90 mg Q12H SQ Last administered on 04/16/16at 21 :12; Start 04/16/16 at 09:00; Stop 04/17/16 at 10:37; Status DC Water 200 ml 200 ml Q4HR TUBE Last administered on 11/13/16 08:00; Start 04/16 at 12:00 Sodium Chloride 1,000 ml @ 84 mls/hr [id number] IV Last administered on at 08:38; Start 04/16/16 at 10:00; Stop 04/20/16 at 12:04; Status DC Ceftriaxone Sodium/Sodium Chloride (Rocephin Inj/NS Inj) 100 ml @ 200 mls/hr Q24H IV Last administered on 05/02/16at 13:19; Start 04/16/16 at 12:00; Stop 05/03/16 at 12:06; Status DC Acetaminophen/ Hydrocodone Bitart (Cascilla 5-325 Mg) 1 tab Q6HR PEG Last administered on 09/17/16 06:42; Start 04/18/16 at 18:00; Stop 09/17/16 at 09:17 ; Status DC Lactulose (Lactulose Liq) 30 ml NOW ONCE PEG Last administered on 04/19/16at 17 :21; Start 04/19/16 at 17:30; Stop 04/19/16 at 17:31; Status DC Lactulose (Lactulose Liq) 30 ml DAILY PEG Last administered on 05/26/16at 08:14 ; Start 04/20/16 at 09:00; Stop 05/27/16 at 11:39; Status DC Potassium Bicarb/ Potassium Chloride (K-Lyte Cl Eff) 50 meq ONCE ONCE PO Last administered on 04/20/16at 05:52; Start 04/20/16 at 05:45; Stop 04/20/16 at 05:46; Status DC Furosemide (Lasix Inj) 20 mg ONCE ONCE IV PUSH Last administered on 04/20/16at 17:35; Start 04/20/16 at 12:00; Stop 04/20/16 at 12:06; Status DC Insulin Aspart (NovoLOG SUPPLEMENTAL SCALE) 1 ACHS SLIDING SCALE SQ Last administered on 06/02/16at 12:10; Start 04/20/16 at 16:00; Stop 06/02/16 at 21: 44; Status DC Dextrose (D50w (Vial) Inj) 25 ml UNSCH PRN IV HYPOGLYCEMIA-SEE COMMENTS; Start 04/20/16 at 12:00 Glucagon (Glucagon Inj) 1 mg UNSCH PRN IM/SQ HYPOGLYCEMIA-SEE COMMENTS; Start 04/20/16 at 12:00 Lactobacillus Acidophilus (Lactinex) 1 tab Q12HR PEG Last administered on 06/06at 21:34; Start 04/22/16 at 09:00; Stop 06/07/16 at 09:32; Status DC Furosemide (Lasix Inj) 20 mg Q12H IV PUSH Last administered on 04/24/16at 08:52 ; Start 04/22/16 at 09:00; Stop 04/24/16 at 09:25; Status DC Potassium Bicarb/ Potassium Chloride (K-Lyte Cl Eff) 25 meq Q12HR TUBE Last administered on 05/27/16at 08:17; Start 04/22/16 at 09:00; Stop 05/27/16 at 11:51 ; Status DC Albumin Human (Albumin 25% Inj) 12.5 gm Q12H IV Last administered on 04/24/16at 08:46; Start 04/22/16 at 09:00; Stop 04/24/16 at 09:25; Status DC Furosemide (Lasix Inj) 20 mg DAILY IV PUSH Last administered on 05/08/16at 09: 01; Start 04/25/16 at 09:00; Stop 05/08/16 at 11:06; Status DC Albumin Human (Albumin 25% Inj) 12.5 gm DAILY IV Last administered on at 09:02; Start 04/25/16 at 10:00; Stop 05/08/16 at 11:06; Status DC Furosemide (Lasix Inj) 40 mg ONCE ONCE IV PUSH Last administered on 04/25/16at 18:15; Start 04/25/16 at 18:15; Stop 04/25/16 at 18:16; Status DC Albuterol/ Ipratropium (Duoneb Neb) 1 ampule Q6HR NEB NEB Last administered on 04/27/16at 15:52; Start 04/25/16 at 18:30; Stop 04/27/16 at 19:45; Status DC Ipratropium [place] (Atrovent Neb) 0.5 mg Q6HR NEB NEB Last administered on at 16:51; Start 04/25/16 at 22:00; Stop 04/27/16 at 16:44; Status DC Levalbuterol HCl (Xopenex Neb) 0.31 mg Q4HR NEB NEB Last administered on at 23:48; Start 04/25/16 at 20:00; Stop 04/27/16 at 16:43; Status DC Levalbuterol HCl (Xopenex Neb) 0.31 mg Q2HR NEB PRN NEB SHORTNESS OF BREATH; Start 04/25/16 at 18:45; Stop 04/28/16 at 10:50; Status DC Diltiazem HCl (Cardizem) 90 mg QID PEG Last administered on 07/17/16at 09:27; Start 04/25/16 at 21:00; Stop 07/17/16 at 17:52; Status DC Diltiazem HCl (Cardizem) 30 mg NOW ONCE PEG Last administered on 04/25/16at 21: 36; Start 04/25/16 at 19:15; Stop 04/25/16 at 19:16; Status DC Levalbuterol HCl (Xopenex Neb) 0.31 mg Q8HR NEB NEB ; Start 04/28/16 at 00:00; Stop 04/28/16 at 10:50; Status DC Levalbuterol HCl (Xopenex Neb) 0.63 mg Q4HR NEB PRN NEB SHORTNESS OF BREATH Last administered on 05/04/16at 15:26; Start 04/28/16 at 11:00; Stop 05/04/16 at 00:51; Status DC Levalbuterol HCl (Xopenex Neb) 0.63 mg Q8HR NEB NEB Last administered on 05/04at 00:07; Start 04/28/16 at 16:00; Stop 05/04/16 at 00:50; Status DC Polyethylene Glycol/ Electrolytes 4000 ml 4,000 ml ONCE ONCE PO Last administered on 05/05/16at 08:10; Start 05/05/16 at 08:45; Stop 05/05/16 at 08 :46; Status DC Cefazolin Sodium/ Dextrose 50 ml @ 100 mls/hr ONCE ONCE IV ; Start 05/06/16 at 14:00; Stop 05/06/16 at 14:29; Status DC Metronidazole 100 ml @ 100 mls/hr ONCE ONCE IV Last administered on at 14:00; Start 05/06/16 at 14:00; Stop 05/06/16 at 14:59; Status DC Ceftriaxone Sodium/Sodium Chloride (Rocephin Inj/NS Inj) 100 ml @ 200 mls/hr Q24H IV Last administered on 06/09/16at 12:36; Start 05/03/16 at 12:00; Stop 06/10/16 at 12:48; Status DC Levalbuterol HCl (Xopenex Neb) 0.63 mg Q8HR NEB NEB Last administered on 05/05at 08:00; Start 05/04/16 at 00:49; Stop 05/05/16 at 08:07; Status DC Levalbuterol HCl (Xopenex Neb) 0.63 mg Q4HR NEB PRN NEB SHORTNESS OF BREATH Last administered on 10/18/16t 15:44; Start 05/05/16 at 12:00 Levalbuterol HCl (Xopenex Neb) 0.63 mg Q8HR NEB NEB Last administered on 05/08at 23:56; Start 05/05/16 at 08:15; Stop 05/09/16 at 08:15; Status DC Potassium Bicarb/ Potassium Chloride (K-Lyte Cl Eff) 25 meq DAILY TUBE Last administered on 11/13/16 08:48; Start 05/28/16 at 09:00 Aspirin (Aspirin) 325 mg DAILY TUBE Last administered on 11/13/16 08:48; Start 05/27/16 at 11:40 Docusate Sodium (Colace Liq) 100 mg DAILY PRN PO constipation Last administered on 08/16/16 21:09; Start 05/27/16 at 11:45; Stop 08/31/16 at 09:00 ; Status DC Metoprolol Tartrate (Lopressor) 50 mg BID PO Last administered on 08/23/16 09: 03; Start 05/29/16 at 21:00; Stop 08/23/16 at 15:33; Status DC Acetaminophen/ Hydrocodone Bitart (Cascilla 5-325 Mg) 1 tab Q6H PRN TUBE BREAKTHROUGH PAIN Last administered on 08/02/16 15:11; Start 06/03/16 at 03:00 ; Stop 09/17/16 at 14:33; Status DC Insulin Aspart (NovoLOG SUPPLEMENTAL SCALE) 1 ACHS SLIDING SCALE SQ Last administered on 06/06/16at 21:35; Start 06/03/16 at 07:00; Stop 06/07/16 at 12 :24; Status DC Lactobacillus Acidophilus (Lactinex) 1 tab TID PEG Last administered on 09:13; Start 06/07/16 at 13:00; Stop 10/13/16 at 12:08; Status DC Insulin Aspart 1 1 AC BREAKFAST SQ Last administered on 11/05/16 07:00; Start 06/08/16 at 07:00 Ceftriaxone Sodium/Sodium Chloride (Rocephin Inj/NS Inj) 100 ml @ 200 mls/hr Q24H IV Last administered on 07/28/16 12:19; Start 06/10/16 at 12:00; Stop 07/29/16 at 13:30; Status DC Heparin Sodium (Porcine) (Heparin Inj) 5,000 units Q12HR SQ Last administered on 06/11/16at 00:58; Start 06/10/16 at 14:15; Stop 06/11/16 at 06:21; Status DC Heparin Sodium (Porcine) (Heparin Inj) 5,000 units Q8HR SQ Last administered on 11/13/16 05:42; Start 06/11/16 at 14:00 Diltiazem HCl (Cardizem) 30 mg QID PEG Last administered on 08/16/16 08:31; Start 07/17/16 at 18:00; Stop 08/16/16 at 12:06; Status DC Bacitracin 1 applic 1 applic BID TOP Last administered on 11/13/16 08:49; Start 07/20/16 at 10:00 Lactated Ringer's 1,000 ml @ 30 mls/hr Q24H IV ; Start 07/21/16 at 17:45; Stop 08/14/16 at 12:08; Status DC Sodium Chloride (NS 500 ml Inj) 500 ml @ 30 mls/hr [id number] IV ; Start 07/21/16 at 17:45; Stop 07/22/16 at 17:44; Status DC Insulin Human Regular (NovoLIN R INJ) See Protocol Table ... UNSCH X1 PRN SQ SEE PROTOCOL; Start 07/21/16 at 17:45; Stop 07/22/16 at 17:44; Status DC Metoprolol Tartrate (Lopressor) 25 mg UNSCH X1 PRN PO SEE LABEL COMMENTS; Start 07/21/16 at 17:45; Stop 07/22/16 at 17:44; Status DC Lidocaine/ Epinephrine (Xylocaine-Epi 1%-1:100,000 Inj) 40 ml STK-MED ONCE .ROUTE Last administered on 07/22/16 10:56; Start 07/22/16 at 10:04; Stop at 10:05; Status DC Ketamine HCl (Ketalar Inj) 500 mg STK-MED ONCE .ROUTE ; Start 07/22/16 at 10:50; Stop 07/22/16 at 10:51; Status DC Propofol 600 mg 600 mg STK-MED ONCE IV ; Start 07/22/16 at 12:00; Stop 07/23/16 at 14:36; Status DC Dextrose 1,000 ml @ 40 mls/hr Q24H ONCE IV Last administered on 07/28/16 14:33 ; Start 07/28/16 at 14:00; Stop 07/29/16 at 13:59; Status DC Ampicillin Sodium/ Sulbactam Sodium/ Sodium Chloride (Unasyn Inj/NS Inj) 100 ml @ 200 mls/hr Q6H IV Last administered on 08/01/16 12:30; Start 07/29/16 at 14: 00; Stop 08/01/16 at 14:13; Status DC Ondansetron HCl 4 mg 4 mg ONCE ONCE IV PUSH Last administered on 07/30/16 02: 46; Start 07/30/16 at 00:30; Stop 07/30/16 at 00:33; Status DC Lactated Ringer's 1,000 ml @ 30 mls/hr Q24H IV ; Start 07/30/16 at 06:00; Stop 08/14/16 at 12:09; Status DC Sodium Chloride (NS 500 ml Inj) 500 ml @ 30 mls/hr [id number] IV ; Start 07/30/16 at 06:00; Stop 07/31/16 at 05:59; Status DC Pantoprazole Sodium (Protonix Inj) 40 mg Q12H IV PUSH Last administered on 11/12 22:17; Start 07/30/16 at 10:15 Propofol 200 mg 200 mg STK-MED ONCE IV ; Start 07/30/16 at 09:41; Stop 07/30/16 at 10:19; Status DC Piperacillin Sod/ Tazobactam Sod (Zosyn 4.5 Gm Premix) 100 ml @ 200 mls/hr Q6H IV Last administered on 08/07/16 09:37; Start 08/01/16 at 16:00; Stop at 16:10; Status DC Linezolid (Zyvox) 600 mg Q12HR PO Last administered on 08/22/16 09:10; Start at 21:00; Stop 08/22/16 at 15:55; Status DC Sodium Chloride ([place]) 1 spray BID NASAL Last administered on 08:49; Start 08/01/16 at 21:00 Metronidazole 500 mg 500 mg Q8H PO Last administered on 08/08/16 08:28; Start 08/07/16 at 16:00; Stop 08/08/16 at 16:10; Status DC Sodium Chloride (NS 1000 ml Inj) 1,000 ml @ 42 mls/hr [id number] IV Last administered on 08/14/16 12:44; Start 08/14/16 at 12:00; Stop 08/15/16 at 10:56 ; Status DC Fentanyl Citrate (fentaNYL INJ) 250 mcg STK-MED ONCE .ROUTE Last administered on 08/14/16 15:36; Start 08/14/16 at 15:36; Stop 08/14/16 at 15:37; Status DC Iohexol (Omnipaque 350 Inj) 30 ml STK-MED ONCE G-TUBE Last administered on 08/14 15:45; Start 08/14/16 at 15:52; Stop 08/14/16 at 15:53; Status DC Diltiazem HCl (Cardizem) 30 mg QID PEG Last administered on 11/13/16 08:48; Start 08/16/16 at 13:00 Polyethylene Glycol (Miralax) 17 gm ONCE ONCE PEG Last administered on 11:32; Start 08/17/16 at 12:00; Stop 08/17/16 at 12:01; Status DC Amoxicillin 500 mg 500 mg Q8HR PO Last administered on 11/13/16 05:42; Start 08/22/16 at 22:00 Cefepime HCl/ Sodium Chloride (Maxipime Inj/NS Inj) 100 ml @ 200 mls/hr Q8H IV Last administered on 09/03/16 10:46; Start 08/23/16 at 16:00; Stop 09/03/16 at 15:02; Status DC Metoprolol Tartrate (Lopressor) 75 mg BID PO Last administered on 09/13/16 08: 42; Start 08/23/16 at 21:00; Stop 09/13/16 at 13:09; Status DC Docusate Sodium (Colace Liq) 100 mg BID PO Last administered on 11/13/16 08:49 ; Start 08/30/16 at 21:00 Sennosides (Senokot) 17.2 mg DAILY PO Last administered on 09/25/16 08:36; Start 08/30/16 at 14:00; Stop 09/25/16 at 16:09; Status DC Lactulose (Lactulose Liq) 30 ml DAILY PO Last administered on 11/13/16 08:48; Start 09/02/16 at 15:30 Artificial Tears (Tears Naturale Opth Soln) 1 drop BID EACH EYE Last administered on 11/13/16 08:49; Start 09/05/16 at 21:00 Midazolam HCl (Versed Inj) 2 mg STK-MED ONCE .ROUTE Last administered on 11:37; Start 09/09/16 at 11:37; Stop 09/09/16 at 11:38; Status DC Fentanyl Citrate (fentaNYL INJ) 100 mcg STK-MED ONCE .ROUTE Last administered on 09/09/16 11:38; Start 09/09/16 at 11:38; Stop 09/09/16 at 11:39; Status DC Iohexol (Omnipaque 350 Inj) 20 ml STK-MED ONCE G-TUBE Last administered on 09/09 11:50; Start 09/09/16 at 11:50; Stop 09/09/16 at 12:15; Status DC Metoprolol Tartrate (Lopressor) 50 mg BID PO Last administered on 11/13/16 08: 48; Start 09/13/16 at 21:00 Acetaminophen/ Hydrocodone Bitart (Cascilla 5-325 Mg) 1 tab Q6H PEG ; Start at 11:00; Stop 09/17/16 at 14:25; Status DC Acetaminophen/ Hydrocodone Bitart (Cascilla 5-325 Mg) 1 tab DAILY@1600 PO ; Start 09/17/16 at 16:00; Stop 09/17/16 at 16:00; Status DC Morphine Sulfate (Morphine Inj) 1 mg Q24H PRN IV PUSH dressing change 30 min before Last administered on 10/22/16 02:00; Start 09/17/16 at 14:30 Acetaminophen/ Hydrocodone Bitart (Cascilla 5-325 Mg) 1 tab DAILY@0000 PO Last administered on 09/17/16 23:43; Start 09/18/16 at 00:00; Stop 09/20/16 at 12:46; Status DC Acetaminophen/ Hydrocodone Bitart (Cascilla 5-325 Mg) 1 tab Q8H PO Last administered on 10/13/16 13:38; Start 09/20/16 at 13:00; Stop 10/13/16 at 18:29 ; Status DC Ketoconazole (Nizoral 2% Cream) 1 applic Q12HR TOPICAL Last administered on 21:11; Start 09/24/16 at 21:00 Sennosides (Senna Liq) 8.8 mg DAILY@1600 PO Last administered on 11/12/16 16: 45; Start 09/25/16 at 17:00 Sodium Biphosphate/ Sodium Phosphate (Fleets Enema (Adult)) 133 ml UNSCH PRN DC CONSTIPATION; Start 09/25/16 at 16:00 Bisacodyl (Dulcolax Supp) 10 mg DAILY PRN RECTAL CONSTIPATION Last administered on 10/20/16 12:53; Start 09/26/16 at 15:30 Bisacodyl (Dulcolax Supp) 10 mg ONCE ONCE RECTAL Last administered on 16:10; Start 09/26/16 at 15:30; Stop 09/26/16 at 15:31; Status DC Cyclobenzaprine HCl (Flexeril) 5 mg Q8H PO Last administered on 10/13/16 13:37 ; Start 10/13/16 at 12:15; Stop 10/13/16 at 18:27; Status DC Magnesium Hydroxide (Milk Of [place]anth [place]) 30 ml DAILY PRN PO constipation Last administered on 10/20/16 12:54; Start 10/13/16 at 14:30 Acetaminophen/ Hydrocodone Bitart (Cascilla 5-325 Mg) 1 tab Q6H PRN PO PAIN SCALE 1 TO 10; Start 10/13/16 at 18:30; Stop 10/13/16 at 18:30; Status DC Acetaminophen/ Hydrocodone Bitart (Cascilla 5-325 Mg) 1 tab Q6H PRN PO PAIN SCALE 1 TO 10 Last administered on 11/07/16 14:03; Start 10/13/16 at 18:45 Cyclobenzaprine HCl (Flexeril) 5 mg HS PRN PO muscle relaxant Last administered on 10/22/16 21:17; Start 10/14/16 at 14:15 Fentanyl Citrate (fentaNYL INJ) 100 mcg STK-MED ONCE .ROUTE ; Start 10/23/16 at 16:51; Stop 10/23/16 at 16:52; Status DC Glycerin (Glycerin Adult Supp) 2 gm ONCE ONCE RECTAL Last administered on 15:29; Start 10/26/16 at 15:00; Stop 10/26/16 at 15:01; Status DC Nitrofurantoin Macrocrystals (Macrobid) 100 mg BIDPC PO Last administered on t 09:36; Start 10/26/16 at 15:00; Stop 10/29/16 at 14:59; Status DC Date of Insertion: Oct 12, 2016 A/P Problem List: (1) CVA (cerebral vascular accident) ICD Code: I63.9 Status: Acute (2) A-fib ICD Code: I48.91 Status: Chronic (3) DM (diabetes mellitus) ICD Code: E11.9 Status: Chronic Assessment and Plan 1. 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 Tracks with his eyes. Continue Keppra for seizure prophylaxis. PT/OT signed off as patient is unable to participate. -Need placement. Difficult. Appreciate case management assistance. 2. Clogged PEG tube on 10/14 and 10/23 status post PEG tube change, tube feedings to Glucerna 1.5 at 50 ml per hour. 3. Chronic respiratory failure -Secondary to CVA. Status post tracheostomy. Continue pulmonary toilet and bronchodilators as needed. Continue trach care, suctioning. Levsin as needed. -Pulmonary currently following . Appreciate assistance. 4. Atrial fibrillation -Continue rate control with Cardizem and metoprolol. Echocardiogram in November 2015 shows preserved ejection fraction. Coumadin discontinued secondary to bleeding. Rate controlled. Continue aspirin and prophylactic heparin dose. 5. History of non-Hodgkin's lymphoma - Status post brain biopsy on December 13 by neurosurgery. Pathology consistent with acute infarct without evidence of lymphoma. Oncology has signed Off 6. Diabetes mellitus -Hemoglobin A1c is 7. Continue Levemir. Monitor Accu-Cheks and cover with sliding scale insulin. Overall blood sugar continues well controlled. 7. Decubitus ulcer stage IV -Continue wound care, twice-daily dressing changes. Wound care recommendations. Continue pressure relief measures including turning and positioning. Patient's family has declined a diverting colostomy. Previous Wound culture growing Klebsiella. on Augmentin. Status post wide excision of sacral skin and biopsy of the cavity lining with debridement on 07/22/16. ID specialist recommended to continue on Amoxicillin and Cefepime for two months will be until the end of September or first days of October. 8. Gastric ulcer, reflux esophagitis - EGD on 07/30/16 showed gastric ulcers. Appreciate GI recommendations. Continue PPI. H&H stable. 9. UTI pseudomonas aeruginosa treated with abx - Resolved. - Repeat Ucx 08/28/16 negative. 10. Constipation: -Having regular bowel movements. -on lactulose. Monitor. 11. Anemia Hemoglobin 9.4 stable DVT prophylaxis on Heparin Discussed with his Mother in the room. Discharge Planning dc planning to SNF-no funding- SSI pending. Problem Qualifiers (1) DM (diabetes mellitus): Qualified Code: E11.9 - Type 2 diabetes mellitus without complications Patsy Wilkes MD Nov 13, 2016 09:56
[2016-11-13] MEDS: PANTOPRAZOLE SODIUM 40 MG VIAL IV PUSH SCH ×2 (10:25→22:38)
[2016-11-13] MEDS: RESP: LEVALBUTEROL HYDROCHLORIDE 0.63 MG/3 ML NEB (PRN) NEB (10:36)
[2016-11-13] MEDS: SENNOSIDES SYRUP 8.8 MG/5 ML CUP PO SCH (13:57)
[2016-11-13] MEDS: PARoxetine HCL SUSP 20 MG/10 ML UDC PEG SCH (17:54)
[2016-11-13] MEDS: INSULIN DETEMIR 100 UNITS/ML VIAL SQ SCH (22:39)
[2016-11-14] VITALS (11 sets, daily range): BP systolic 113–133; BP diastolic 68–78; PULSE 78–98; RESP 20; TEMP 96.8–101.6; O2SAT 82–99
[2016-11-14] MEDS: FREE WATER TUBE SCH ×7 (04:00→23:32)
[2016-11-14] MEDS: AMOXICILLIN (TRIHYDRATE) 500 MG CAP PO SCH ×3 (05:38→21:18)
[2016-11-14] MEDS: ACETIC ACID 0.25% SOLN 1000 ML IRR BTL IRRIGATION SCH ×3 (05:39→21:21)
[2016-11-14] MEDS: HEPARIN SODIUM - SQ 10,000 UNITS/ML VIAL SQ SCH ×3 (05:39→21:19)
[2016-11-14] MEDS: INSULIN ASPART SUPPLEMENTAL SCALE SQ SCH (07:00)
[2016-11-14] MEDS: PANTOPRAZOLE SODIUM 40 MG VIAL IV PUSH SCH ×2 (08:18→21:19)
[2016-11-14] MEDS: levETIRAcetam 500 MG/5 ML UDC TUBE SCH ×2 (08:18→21:19)
[2016-11-14] MEDS: ASPIRIN 325 MG TAB TUBE SCH (08:18)
[2016-11-14] MEDS: POTASSIUM CHLORIDE 25 MEQ EFFERVESCENT TAB TUBE SCH (08:18)
[2016-11-14] MEDS: DILTIAZEM HCL 30 MG TAB PEG SCH ×4 (08:19→21:00)
[2016-11-14] MEDS: NYSTATIN 100,000 U/GM PWD 15 GM BTL TOPICAL SCH ×2 (08:19→21:21)
[2016-11-14] MEDS: KETOCONAZOLE 2% CREAM 15 GM TOPICAL SCH ×2 (08:19→21:00)
[2016-11-14] MEDS: METOPROLOL TARTRATE 50 MG TAB PO SCH ×2 (08:19→21:18)
[2016-11-14] MEDS: BACITRACIN TOP OINT 15 GM TUBE TOP SCH ×2 (08:19→21:20)
[2016-11-14] MEDS: LACTULOSE SYRUP 20 GM/30 ML CUP PO SCH (08:19)
[2016-11-14] MEDS: SODIUM CHLORIDE 0.65% NASAL SPRAY 45 ML BTL NASAL SCH ×2 (08:19→21:00)
[2016-11-14] MEDS: ARTIFICIAL TEARS OPTH SOLN 15 ML BTL EACH EYE SCH ×2 (08:19→21:21)
[2016-11-14] MEDS: DOCUSATE SODIUM 100 MG/10 ML UDC PO SCH ×3 (08:19→21:19)
--- NOTE | 2016-11-14 10:26 | HHI.PR ---
Subjective Remarks f/u for CVA patient continues to be nonverbal and does not follow commands gin feeder change TFs due to diarrhea. mother stated she is very happen that I therapy came by today. OT at bedside. otherwise no complaints. Objective Vitals Vital Signs Date Time Temp Pulse Resp B/P Pulse Ox O2 Delivery O2 Flow Rate FiO2 11/14/16 08:00 96.8 93 20 133/78 98 11/14/16 04:00 99.6 82 20 123/75 98 11/14/16 00:00 99.1 78 20 114/68 98 11/13/16 23:00 85 11/13/16 21:16 T-Piece 28 11/13/16 20:00 98.7 81 20 117/72 99 11/13/16 16:00 97.2 85 20 105/79 94 11/13/16 12:00 97.3 95 20 105/65 94 I/O 11/13/16 11/13/16 11/13/16 11/14/16 11/14/16 11/14/16 07:00 15:00 23:00 07:00 15:00 23:00 Intake Total 200 ml Output Total 1200 ml 650 ml Balance -1000 ml -650 ml Tube Irrigant 200 ml Output Urine Total 1200 ml 650 ml # Voids 1 # Bowel Movements 1 1 1 Objective Remarks Gen NAD CV RRR. no r//g Resp trach in place CTA B/L abd soft NDNT NEURO patient is sleepy today but can be aroused. Procedures 01/02/16 PEG placement 01/02/16 tracheostomy 07/22/2016 Wide excision of sacral skin wound, biopsy of the cavity lining and debridement. PEG tube replacement 07/29/16 VAC changes- M-W-F 4/5- GJ tube replacement Medications and IVs Current Medications IV Flush (NS Flush) 2 ml UNSCH PRN IVF FLUSH AFTER USING IV ACCESS Last administered on 09/28/16t 21:18; Start 12/21/15 at 06:00 Ondansetron HCl (Zofran Inj) 4 mg STK-MED ONCE .ROUTE ; Start 12/21/15 at 06:22; Stop 12/21/15 at 06:23; Status DC Ondansetron HCl (Zofran Inj) 4 mg ONCE ONCE IV PUSH Last administered on at 06:43; Start 12/21/15 at 06:30; Stop 12/21/15 at 06:31; Status DC Diltiazem HCl 20 mg 20 mg ONCE ONCE IV Last administered on 12/21/15at 06:42; Start 12/21/15 at 06:30; Stop 12/21/15 at 06:31; Status DC Diltiazem HCl/ Sodium Chloride (Cardizem Inj/NS Inj) 125 ml @ 0 mls/hr TITRATE IV Last administered on 12/21/15at 06:47; Start 12/21/15 at 06:30; Stop 12/21/15 at 13:00; Status DC Acetaminophen (Tylenol) 650 mg ONCE ONCE PO ; Start 12/21/15 at 06:45; Stop 12/20 at 06:46; Status DC Lorazepam (Ativan Inj) 1 mg ONCE ONCE IV PUSH Last administered on 12/21/15at 07 :22; Start 12/21/15 at 07:15; Stop 12/21/15 at 07:16; Status DC Etomidate (Amidate Inj) 40 mg STK-MED ONCE .ROUTE Last administered on at 08:17; Start 12/21/15 at 07:37; Stop 12/21/15 at 07:38; Status DC Succinylcholine Chloride 200 mg 200 mg STK-MED ONCE .ROUTE Last administered on 12/21/15at 08:18; Start 12/21/15 at 07:37; Stop 12/21/15 at 07:38; Status DC Propofol (Diprivan 1000 Mg/100ml Inj) 100 ml @ As Directed STK-MED ONCE .ROUTE Last administered on 12/21/15at 08:19; Start 12/21/15 at 07:46; Stop 12/21/15 at 07:47; Status DC Propofol (Diprivan 1000 Mg/100ml Inj) search Sets for Drip. NOW PRN IV SEDATION Last administered on 12/22/15at 06:25; Start 12/21/15 at 08:30; Stop 12/28 at 15:43; Status DC Gadodiamide (Omniscan Pf Inj) 18 ml STK-MED ONCE IV Last administered on at 10:11; Start 12/21/15 at 10:11; Stop 12/21/15 at 10:12; Status DC Pantoprazole Sodium (Protonix Inj) 40 mg DAILY IV Last administered on at 07:39; Start 12/21/15 at 13:00; Stop 01/03/16 at 10:10; Status DC Albuterol/ Ipratropium (Duoneb Neb) 1 ampule Q6HR NEB INH Last administered on 12/25/15at 07:51; Start 12/21/15 at 13:00; Stop 12/25/15 at 13:00; Status DC Miscellaneous Information 1 [id number] Last administered on 12/21/15at 13:00; Start 12/21/15 at 13:00; Stop 01/12/16 at 11:47; Status DC Chlorhexidine Gluconate (Chlorhexidine 2% Cloth) 3 pack Taper DAILY@04 TOP Last administered on 01/11/16at 04:10; Start 12/22/15 at 04:00; Stop 01/12/16 at 11:47; Status DC Chlorhexidine Gluconate 3 pack 3 pack UNSCH PRN TOP HYGIENIC CARE; Start at 13:00; Stop 01/12/16 at 11:47; Status DC Sodium Chloride (NS 1000 ml Inj) 1,000 ml @ 75 mls/hr [id number] IV Last administered on 12/22/15at 17:00; Start 12/21/15 at 13:00; Stop 12/22/15 at 19:01; Status DC Dextrose (D50w (Vial) Inj) 25 ml UNSCH PRN IV PUSH HYPOGLYCEMIA-SEE COMMENTS; Start 12/21/15 at 13:00; Stop 04/19/16 at 17:19; Status DC Glucagon (Glucagon Inj) 1 mg UNSCH PRN OTHER HYPOGLYCEMIA-SEE COMMENTS; Start 12/21/15 at 13:00; Stop 04/19/16 at 17:19; Status DC Insulin Human Regular (NovoLIN R SUPPLEMENTAL SCALE) 1 Q6H SQ Last administered on 01/04/16at 06:31; Start 12/21/15 at 13:00; Stop 01/04/16 at 10:05 ; Status DC Levetriacetam (Keppra) 500 mg Q12HR PO Last administered on 12/27/15at 09:00; Start 12/21/15 at 13:45; Stop 12/27/15 at 09:44; Status DC Heparin Sodium (Porcine) (Heparin Inj) 5,000 units BID SQ Last administered on 12/22/15at 20:52; Start 12/21/15 at 21:00; Stop 12/23/15 at 08:32; Status DC Warfarin Sodium (Coumadin) 7.5 mg ONCE ONCE PO Last administered on 12/21/15at 21:43; Start 12/21/15 at 21:00; Stop 12/21/15 at 21:01; Status DC Warfarin Sodium (Coumadin) 5 mg DAILY@16 PO Last administered on 12/23/15at 16:00 ; Start 12/22/15 at 16:00; Stop 12/26/15 at 09:29; Status DC Patient Medication Teaching (Coumadin Booklet) 1 ONCE ONCE XX Last administered on 12/21/15at 20:15; Start 12/21/15 at 20:15; Stop 12/21/15 at 20:16; Status DC Chlorhexidine Gluconate (Peridex 0.12% Liq) 15 ml BID@08,20 MT Last administered on 01/12/16at 08:00; Start 12/22/15 at 20:00; Stop 01/12/16 at 11:47 ; Status DC Gadodiamide 20 ml 20 ml STK-MED ONCE IV Last administered on 12/22/15at 09:55; Start 12/22/15 at 09:55; Stop 12/22/15 at 09:56; Status DC Pharmacy Profile Note ml @ 0 mls/hr UNSCH OTHER ; Start 12/22/15 at 11:00; Stop 12/22/15 at 19:43; Status DC Sodium Chloride 1,000 ml @ 50 mls/hr Q20H IV Last administered on 12/24/15at 20: 02; Start 12/22/15 at 18:44; Stop 12/25/15 at 11:52; Status DC Pharmacy Profile Note (Coumadin Consult Pharmacy) 0 ml @ 0 mls/hr UNSCH OTHER ; Start 12/22/15 at 19:45; Stop 01/04/16 at 12:25; Status DC Acetaminophen 650 mg 650 mg Q6H PRN PO TEMP > 100 Last administered on at 13:24; Start 12/23/15 at 02:45; Stop 12/30/15 at 15:04; Status DC Potassium Chloride 100 ml @ 50 mls/hr Q2H PRN IV For Potassium 2.8 - 3.2 mEq/L ; Start 12/23/15 at 08:30; Stop 01/09/16 at 11:14; Status DC Potassium Chloride (KCl 20 Meq Premix Inj) 100 ml @ 50 mls/hr Q2H PRN IV For Potassium 2.8 - 3.2 mEq/L; Start 12/23/15 at 08:30; Stop 01/09/16 at 11:14; Status DC Potassium Chloride 40 meq 40 meq UNSCH PRN PO/TUBE For Potassium 3.3 - 3.5 mEq/ L; Start 12/23/15 at 08:30; Stop 01/09/16 at 11:14; Status DC Potassium Chloride 100 ml @ 25 mls/hr UNSCH PRN IV For Potassium 3.3 - 3.5 mEq /L; Start 12/23/15 at 08:30; Stop 01/09/16 at 11:14; Status DC Potassium Chloride 100 ml @ 50 mls/hr Q2H PRN IV For Potassium 3.3 - 3.5 mEq/L ; Start 12/23/15 at 08:30; Stop 01/09/16 at 11:14; Status DC Magnesium Sulfate/ Sodium Chloride (Magnesium Sulfate Inj/NS Inj) 100 ml @ 50 mls/hr UNSCH PRN IV For Magnesium 0.9 - 1.1 mg/dL; Start 12/23/15 at 08:30; Stop 01/09/16 at 11:14; Status DC Magnesium Oxide 800 mg 800 mg UNSCH PRN PO For Magnesium 1.2 - 1.6 mg/dL; Start 12/23/15 at 08:30; Stop 01/09/16 at 11:14; Status DC Magnesium Sulfate/ Sodium Chloride (Magnesium Sulfate Inj/NS Inj) 100 ml @ 50 mls/hr UNSCH PRN IV For Magnesium 1.2 - 1.6 mg/dL; Start 12/23/15 at 08:30; Stop 01/09/16 at 11:14; Status DC Potassium Phosphate 2000 mg 2,000 mg Q4H PRN PO For Phosphorus < 2.5 mg/dL; Start 12/23/15 at 08:30; Stop 01/09/16 at 11:14; Status DC Sodium Phosphate/ Sodium Chloride (Sodium Phosphate Inj/NS 250 ml Inj) 250 ml @ 42 mls/hr UNSCH PRN IV For Phosphorus < 2.5 mg/dL; Start 12/23/15 at 08:30; Stop 01/09/16 at 11:14; Status DC Potassium Chloride (KCl 40 Meq/30 ml Liq) 40 meq UNSCH PRN PO/TUBE SEE LABEL COMMENTS; Start 12/23/15 at 08:30; Stop 01/09/16 at 11:14; Status DC Potassium Phosphate 2000 mg 2,000 mg UNSCH PRN PO/TUBE SEE LABEL COMMENTS; Start 12/23/15 at 08:30; Stop 01/09/16 at 11:14; Status DC Potassium Phosphate 30 mmol/ Sodium Chloride 260 ml @ 42 mls/hr UNSCH PRN IV SEE LABEL COMMENTS; Start 12/23/15 at 08:30; Stop 01/09/16 at 11:14; Status DC Sodium Chloride 1,000 ml @ 75 mls/hr [id number] IV ; Start 12/23/15 at 08:30; Stop 12/23/15 at 08:30; Status DC Piperacillin Sod/ Tazobactam Sod 50 ml @ 100 mls/hr Q6H IV Last administered on 12/30/15at 10:02; Start 12/23/15 at 10:00; Stop 12/30/15 at 14:50; Status DC Vancomycin HCl/ Sodium Chloride (Vancomycin Inj/ NS 250 ml Inj) 250 ml @ 250 mls/hr Q12H IV Last administered on 12/29/15at 09:01; Start 12/24/15 at 08:45; Stop 12/29/15 at 15:33; Status DC Warfarin Sodium (Coumadin) 4 mg DAILY@16 PO Last administered on 12/28/15at 16:00 ; Start 12/26/15 at 16:00; Stop 01/04/16 at 12:25; Status DC Levetriacetam (Keppra Liq) 500 mg Q12HR TUBE Last administered on 11/14/16t 08 :18; Start 12/27/15 at 21:00 Docusate Sodium (Colace Liq) 100 mg Q12HR TUBE Last administered on 01/15/16at 09:01; Start 12/27/15 at 21:00; Stop 04/16/16 at 08:50; Status DC Sennosides (Senna Liq) 8.8 mg DAILY TUBE Last administered on 01/15/16at 09:01 ; Start 12/27/15 at 17:00; Stop 01/15/16 at 20:37; Status DC Bisacodyl (Dulcolax Supp) 10 mg ONCE ONCE RECTAL ; Start 12/27/15 at 16:15; Stop 12/27/15 at 16:15; Status DC Albuterol/ Ipratropium (Duoneb Neb) 1 ampule Q4HR NEB PRN NEB RESPIRATORY DISTRESS Last administered on 12/29/15at 12:17; Start 12/27/15 at 22:00; Stop at 08:16; Status DC Bisacodyl (Dulcolax Supp) 10 mg ONCE ONCE RECTAL ; Start 12/28/15 at 12:00; Stop 12/28/15 at 12:01; Status DC Sodium Chloride (Sodium Chloride) 1 gm BID TUBE Last administered on 12/29/15at 09:02; Start 12/28/15 at 21:00; Stop 12/29/15 at 15:43; Status DC Lactulose (Lactulose Liq) 30 ml DAILY TUBE Last administered on 12/29/15at 09:02 ; Start 12/28/15 at 20:30; Stop 12/29/15 at 15:43; Status DC Levofloxacin (Levaquin) 750 mg DAILY@16 TUBE ; Start 12/29/15 at 16:00; Stop 05/05 at 16:00; Status DC Sodium Chloride (Sodium Chloride) 1 gm DAILY TUBE Last administered on at 07:29; Start 12/30/15 at 09:00; Stop 12/31/15 at 14:08; Status DC Water 200 ml 200 ml Q6HR G-TUBE Last administered on 12/31/15at 04:19; Start 06/05 at 14:45; Stop 12/31/15 at 07:31; Status DC Ceftriaxone Sodium/Sodium Chloride (Rocephin Inj/NS Inj) 100 ml @ 200 mls/hr Q12H IV Last administered on 01/03/16at 02:47; Start 12/30/15 at 15:00; Stop at 10:09; Status DC Acetaminophen (Tylenol 650 Mg/ 20 ml Liq) 650 mg Q6H PRN TUBE TEMP >100.4 Last administered on 10/25/16t 15:13; Start 12/30/15 at 15:15 Lactobacillus Acidophilus (Lactinex Pkt) 1 gm BID TUBE Last administered on at 09:00; Start 12/30/15 at 21:00; Stop 02/10/16 at 14:30; Status DC Enoxaparin Sodium (Lovenox Inj) 90 mg Q12H SQ Last administered on 01/01/16at 21 :57; Start 12/31/15 at 08:00; Stop 01/03/16 at 10:33; Status DC Water (Free Water) 100 ml Q12H G-TUBE ; Start 12/31/15 at 18:00; Stop 12/31/15 at 18:00; Status DC Acetaminophen/ Hydrocodone Bitart (Galva 5-325 Mg) 1 tab Q6H PRN PO PAIN Last administered on 05/26/16at 20:46; Start 12/31/15 at 15:00; Stop 06/02/16 at 21: 44; Status DC Fentanyl Citrate (Sublimaze Inj) 25 mcg Q1H PRN IV PUSH BREAKTHROUGH PAIN; Start 12/31/15 at 15:00; Stop 03/06/16 at 10:03; Status DC Water (Free Water) 200 ml Q8H G-TUBE Last administered on 01/01/16at 17:55; Start 12/31/15 at 18:00; Stop 01/02/16 at 09:56; Status DC Sodium Chloride (Sodium Chloride) 1 gm BID TUBE Last administered on 01/03/16at 07:39; Start 12/31/15 at 21:00; Stop 01/03/16 at 09:08; Status DC Miscellaneous Information Hold Anticoagulation after midni... ONCE ONCE OTHER ; Start 01/01/16 at 10:15; Stop 01/01/16 at 10:29; Status DC Sodium Chloride (NS 1000 ml Inj) 1,000 ml @ 50 mls/hr Q20H IV Last administered on 01/02/16at 12:26; Start 01/01/16 at 18:00; Stop 01/03/16 at 10:07 ; Status DC Midazolam HCl (Versed Inj) 5 mg STK-MED ONCE .ROUTE ; Start 01/02/16 at 12:47; Stop 01/02/16 at 12:48; Status DC Vecuronium [place] (Norcuron 10 Mg Inj) 10 mg STK-MED ONCE .ROUTE ; Start at 12:47; Stop 01/02/16 at 12:48; Status DC Fentanyl Citrate (Sublimaze Inj) 250 mcg ONCE ONCE IV PUSH Last administered on 01/02/16at 15:00; Start 01/02/16 at 15:00; Stop 01/02/16 at 15:01; Status DC Midazolam HCl (Versed Inj) 10 mg ONCE ONCE IV PUSH Last administered on at 15:00; Start 01/02/16 at 15:00; Stop 01/02/16 at 15:01; Status DC Rocuronium [place] (Zemuron Inj) 100 mg BOLUS ONCE IV Last administered on at 15:00; Start 01/02/16 at 15:00; Stop 01/02/16 at 15:01; Status DC Ketamine HCl (Ketalar Inj) 500 mg STK-MED ONCE .ROUTE ; Start 01/02/16 at 14:30 ; Stop 01/02/16 at 14:31; Status DC Propofol 230 mg 230 mg STK-MED ONCE IV ; Start 01/02/16 at 16:51; Stop 01/02/16 at 16:52; Status DC Sodium Chloride (NS 1000 ml Inj) 1,000 ml @ 0 mls/hr Q0M IV ; Start 01/03/16 at 10:15; Stop 01/17/16 at 17:30; Status DC Ranitidine HCl (Zantac Liq) 150 mg Q12HR PO Last administered on 01/17/16at 07: 39; Start 01/04/16 at 09:00; Stop 01/17/16 at 15:23; Status DC Enoxaparin Sodium 90 mg 90 mg Q12HR SQ Last administered on 01/11/16at 10:01; Start 01/04/16 at 09:00; Stop 01/11/16 at 12:35; Status DC Sodium Chloride (NS 500 ml Inj) 500 ml @ 0 mls/hr BOLUS ONCE IV Last administered on 01/03/16at 22:57; Start 01/03/16 at 23:00; Stop 01/03/16 at 23:01 ; Status DC Insulin Aspart (NovoLOG SUPPLEMENTAL SCALE) 1 Q6HR SQ Last administered on at 12:00; Start 01/04/16 at 12:00; Stop 03/24/16 at 13:58; Status DC Potassium Chloride (KCl 40 Meq/30 ml Liq) 40 meq Q4H NG Last administered on at 16:21; Start 01/04/16 at 13:00; Stop 01/04/16 at 17:01; Status DC Warfarin Sodium 5 mg 5 mg DAILY@1600 PO Last administered on 01/09/16at 17:21; Start 01/04/16 at 16:00; Stop 01/10/16 at 10:06; Status DC Pharmacy Profile Note (Coumadin Consult Pharmacy) 0 ml @ 0 mls/hr UNSCH XX ; Start 01/04/16 at 12:30; Stop 04/20/16 at 12:04; Status DC Insulin Detemir (Levemir Inj) 10 units Q12HR SQ Last administered on 01/05/16at 08:00; Start 01/04/16 at 21:00; Stop 01/05/16 at 08:42; Status DC Insulin Detemir (Levemir Inj) 5 units NOW ONCE SQ Last administered on at 13:28; Start 01/04/16 at 12:45; Stop 01/04/16 at 12:46; Status DC Albuterol/ Ipratropium (Duoneb Neb) 1 ampule Q4HR NEB PRN NEB dyspnea Last administered on 04/19/16at 02:24; Start 01/07/16 at 08:15; Stop 04/25/16 at 18:54 ; Status DC Warfarin Sodium (Coumadin) 7.5 mg ONCE ONCE PO Last administered on 01/07/16at 16:40; Start 01/07/16 at 16:00; Stop 01/07/16 at 16:01; Status DC Nystatin (Mycostatin Powder) 1 applic Q12HR TOPICAL Last administered on t 08:19; Start 01/08/16 at 21:00 Ipratropium [place] (Atrovent Neb) 0.5 mg TID NEB NEB Last administered on 8/3 /16at 13:17; Start 01/08/16 at 20:00; Stop 02/21/16 at 17:52; Status DC Warfarin Sodium (Coumadin) 5 mg DAILY@1600 PO Last administered on 01/11/16at 14 :26; Start 01/11/16 at 16:00; Stop 01/12/16 at 09:45; Status DC Warfarin Sodium (Coumadin) 6 mg ONCE PO Last administered on 01/10/16at 17:10; Start 01/10/16 at 16:00; Stop 01/10/16 at 21:00; Status DC Metoprolol Tartrate (Lopressor) 50 mg Q12HR GT Last administered on 01/11/16at 10:02; Start 01/10/16 at 11:00; Stop 01/11/16 at 12:30; Status DC Metoprolol Tartrate (Lopressor) 50 mg TID GT Last administered on 01/14/16at 08: 24; Start 01/11/16 at 13:00; Stop 01/14/16 at 08:28; Status DC Insulin Detemir (Levemir Inj) 10 units HS SQ Last administered on 01/11/16at 22: 23; Start 01/11/16 at 21:00; Stop 01/12/16 at 11:47; Status DC Warfarin Sodium (Coumadin) 4 mg DAILY@16 PO ; Start 01/12/16 at 16:00; Stop at 16:00; Status DC Insulin Detemir (Levemir Inj) 20 units HS SQ Last administered on 01/13/16at 20: 26; Start 01/12/16 at 21:00; Stop 01/14/16 at 08:28; Status DC Warfarin Sodium (Coumadin) 2 mg DAILY@16 PO Last administered on 01/13/16at 17: 05; Start 01/12/16 at 16:00; Stop 01/14/16 at 11:23; Status DC Insulin Detemir (Levemir Inj) 22 units HS SQ Last administered on 01/14/16at 21: 37; Start 01/14/16 at 21:00; Stop 01/15/16 at 10:06; Status DC Metoprolol Tartrate (Lopressor) 75 mg TID GT Last administered on 03/10/16at 17: 43; Start 6/26/16 at 09:00; Stop 03/10/16 at 21:13; Status DC Miscellaneous (Pill Splitter) 1 ea UNSCH PRN OTHER SEE LABEL COMMENTS; Start at 08:30 Warfarin Sodium (Coumadin) 4 mg DAILY@1600 PO Last administered on 01/21/16at 16: 51; Start 01/14/16 at 16:00; Stop 01/23/16 at 09:29; Status DC Patient Medication Teaching (Coumadin Booklet) 1 ONCE ONCE XX ; Start 01/14/16 at 16:00; Stop 01/14/16 at 16:01; Status DC Insulin Detemir (Levemir Inj) 24 units HS SQ Last administered on 03/04/16at 21: 09; Start 01/15/16 at 21:00; Stop 03/05/16 at 11:17; Status DC Citalopram Hydrobromide (CeleXA) 20 mg DAILY PEG Last administered on at 08:01; Start 01/16/16 at 09:00; Stop 01/16/16 at 09:41; Status DC Sennosides (Senna Liq) 8.8 mg BID TUBE Last administered on 02/20/16at 08:32; Start 01/15/16 at 21:00; Stop 02/20/16 at 16:13; Status DC Gadodiamide 18 ml 18 ml STK-MED ONCE IV ; Start 01/16/16 at 20:40; Stop at 20:41; Status DC Sodium Chloride (NS 1000 ml Inj) 1,000 ml @ 125 mls/hr Q8H IV Last administered on 01/17/16at 15:11; Start 01/17/16 at 15:00; Stop 01/17/16 at 17:31 ; Status DC Ranitidine HCl 150 mg 150 mg Q24H PO Last administered on 07/28/16t 08:54; Start 01/18/16 at 09:00; Stop 07/30/16 at 10:05; Status DC Sodium Chloride 1,000 ml @ 75 mls/hr [id number] IV Last administered on at 05:22; Start 01/17/16 at 18:00; Stop 01/18/16 at 09:28; Status DC Sodium Chloride/ Sterile Water (Sodium Chloride 23.4% Inj/Sterile Water For Inj ) 1,009.625 ml @ 60 mls/hr [id number] IV Last administered on 01/21/16at 22:46; Start 01/18/16 at 11:00; Stop 01/22/16 at 10:09; Status DC Potassium Chloride (KCl) 40 meq ONCE ONCE PO ; Start 01/18/16 at 09:30; Stop at 09:31; Status DC Potassium Chloride (KCl 40 Meq/30 ml Liq) 40 meq ONCE ONCE TUBE Last administered on 01/18/16at 11:08; Start 01/18/16 at 11:00; Stop 01/18/16 at 11:01 ; Status DC Water (Free Water) 300 ml Q4HR TUBE Last administered on 01/19/16at 08:00; Start 01/18/16 at 12:00; Stop 01/19/16 at 10:43; Status DC Water (Free Water) 400 ml Q4HR TUBE Last administered on 04/16/16at 04:00; Start 01/19/16 at 12:00; Stop 04/16/16 at 09:09; Status DC Potassium Chloride (KCl 40 Meq/30 ml Liq) 40 meq ONCE ONCE NG Last administered on 01/19/16at 11:41; Start 01/19/16 at 11:00; Stop 01/19/16 at 11:01; Status DC Potassium Chloride 60 meq 60 meq ONCE ONCE PO/TUBE Last administered on at 13:30; Start 01/21/16 at 11:15; Stop 01/21/16 at 11:27; Status DC Sodium Chloride (1/2 NS 1000 ml Inj) 1,000 ml @ 30 mls/hr Q24H IV Last administered on 02/06/16at 11:26; Start 01/22/16 at 11:00; Stop 02/07/16 at 14:49 ; Status DC Warfarin Sodium (Coumadin) 3 mg DAILY@16 PO Last administered on 01/23/16at 17:19 ; Start 01/23/16 at 16:00; Stop 01/24/16 at 14:05; Status DC Warfarin Sodium (Coumadin) 3 mg DAILY@16 PO Last administered on 01/25/16at 15:59 ; Start 01/25/16 at 16:00; Stop 01/26/16 at 15:04; Status DC Warfarin Sodium (Coumadin) 4 mg ONCE@1600 ONCE PO Last administered on at 16:55; Start 01/24/16 at 16:00; Stop 01/24/16 at 16:01; Status DC Warfarin Sodium (Coumadin) 3 mg DAILY@16 PO ; Start 01/27/16 at 16:00; Stop at 16:00; Status DC Warfarin Sodium (Coumadin) 4 mg ONCE@1600 ONCE PO Last administered on at 16:52; Start 01/26/16 at 16:00; Stop 01/26/16 at 16:01; Status DC Potassium Chloride (KCl 40 Meq/30 ml Liq) 80 meq ONCE ONCE PO Last administered on 01/27/16at 07:45; Start 01/27/16 at 07:45; Stop 01/27/16 at 08:10; Status DC Warfarin Sodium (Coumadin) 4 mg DAILY@16 PO Last administered on 02/02/16at 17: 22; Start 01/27/16 at 16:00; Stop 02/03/16 at 11:37; Status DC Acetic Acid (Acetic Acid 0.25% Irr Btl) 10 ml Q8HR IRRIGATION Last administered on 02/05/16at 06:00; Start 01/28/16 at 22:00; Stop 02/05/16 at 15:51 ; Status DC Warfarin Sodium 3 mg 3 mg DAILY@1600 PO Last administered on 02/11/16at 17:34; Start 02/03/16 at 16:00; Stop 02/12/16 at 12:45; Status DC Ceftriaxone Sodium/Sodium Chloride (Rocephin Inj/NS Inj) 100 ml @ 200 mls/hr Q24H IV Last administered on 02/10/16at 05:23; Start 02/05/16 at 06:30; Stop at 14:32; Status DC Acetic Acid (Acetic Acid 0.25% Irr Btl) 10 ml Q8HR IRRIGATION ; Start 02/05/16 at 16:00; Status Cancel Acetic Acid (Acetic Acid 0.25% Irr Btl) 10 ml Q8HR IRRIGATION Last administered on 11/14/16t 05:39; Start 02/05/16 at 16:00 Lactobacillus Acidophilus (Lactinex) 1 tab Q12HR PO Last administered on at 08:25; Start 02/10/16 at 21:00; Stop 02/12/16 at 16:05; Status DC Warfarin Sodium (Coumadin) 4 mg DAILY@1600 PO Last administered on 02/14/16at 15 :56; Start 02/12/16 at 16:00; Stop 02/15/16 at 10:17; Status DC Paroxetine HCl (Paxil Liq) 20 mg DAILY PEG Last administered on 02/25/16at 07:33 ; Start 02/16/16 at 09:00; Stop 02/25/16 at 10:36; Status DC Warfarin Sodium (Coumadin) 3 mg DAILY@1600 PO Last administered on 02/19/16at 16: 42; Start 02/15/16 at 16:00; Stop 02/20/16 at 08:50; Status DC Warfarin Sodium (Coumadin) 4 mg DAILY@16 PO Last administered on 02/21/16at 15:54 ; Start 02/20/16 at 16:00; Stop 02/22/16 at 08:46; Status DC Sennosides (Senna Liq) 8.8 mg DAILY TUBE Last administered on 05/26/16at 08:14 ; Start 02/21/16 at 09:00; Stop 05/27/16 at 11:51; Status DC Albuterol Sulfate (Albuterol Neb) 2.5 mg QID NEB INH Last administered on at 19:51; Start 02/21/16 at 20:00; Stop 02/25/16 at 20:00; Status DC Acetylcysteine (Mucomyst 10% Neb) 1 ml QID NEB NEB Last administered on at 16:32; Start 02/21/16 at 20:00; Stop 02/23/16 at 16:01; Status DC Warfarin Sodium (Coumadin) 3 mg DAILY@16 PO Last administered on 02/22/16at 15:59 ; Start 02/22/16 at 16:00; Stop 02/23/16 at 08:56; Status DC Warfarin Sodium (Coumadin) 3 mg DAILY@16 PO Last administered on 02/28/16at 16: 17; Start 02/24/16 at 16:00; Stop 02/29/16 at 10:04; Status DC Warfarin Sodium (Coumadin) 2 mg ONCE PO Last administered on 02/23/16at 16:22; Start 02/23/16 at 16:00; Stop 02/23/16 at 21:00; Status DC Paroxetine HCl (Paxil Liq) 20 mg DAILY@1900 PEG Last administered on 03/08/16at 18:11; Start 02/26/16 at 19:00; Stop 03/09/16 at 11:31; Status DC Warfarin Sodium (Coumadin) 3 mg DAILY@16 PO Last administered on 03/06/16at 16: 22; Start 03/01/16 at 16:00; Stop 03/09/16 at 10:30; Status DC Warfarin Sodium (Coumadin) 1 mg ONCE PO Last administered on 02/29/16at 17:28; Start 02/29/16 at 16:00; Stop 02/29/16 at 21:00; Status DC Insulin Detemir (Levemir Inj) 27 units HS SQ Last administered on 03/05/16at 20: 25; Start 03/05/16 at 21:00; Stop 03/06/16 at 10:03; Status DC Patient Medication Teaching (Coumadin Booklet) 1 ONCE ONCE XX Last administered on 03/05/16at 16:00; Start 03/05/16 at 16:00; Stop 03/05/16 at 16:01 ; Status DC Insulin Detemir (Levemir Inj) 30 units HS SQ Last administered on 03/21/16at 22: 32; Start 03/06/16 at 21:00; Stop 03/22/16 at 14:48; Status DC Trimethoprim/ Sulfamethoxazole (Bactrim 800-160 Mg/20 ml Liq) 20 ml Q12HR PO Last administered on 03/14/16at 08:01; Start 03/07/16 at 11:15; Stop 03/14/16 at 11:14; Status DC Lorazepam (Ativan Inj) 0.5 mg Q4H PRN IV PUSH seizures or agitation; Start at 23:00 Metronidazole (Flagyl) 500 mg Q8H PO Last administered on 03/14/16at 15:51; Start 03/08/16 at 17:00; Stop 03/14/16 at 23:00; Status DC Warfarin Sodium (Coumadin) 2 mg DAILY@16 PO Last administered on 03/09/16at 17: 20; Start 03/09/16 at 16:00; Stop 03/10/16 at 10:33; Status DC Paroxetine HCl (Paxil) 20 mg DAILY@1900 PEG Last administered on 03/11/16at 17: 55; Start 03/09/16 at 19:00; Stop 03/12/16 at 08:31; Status DC Warfarin Sodium 3 mg 3 mg DAILY@16 PO Last administered on 04/12/16at 15:28; Start 03/10/16 at 16:00; Stop 04/12/16 at 16:39; Status DC Pharmacy Profile Note 0 ml @ 0 mls/hr UNSCH OTHER ; Start 03/10/16 at 14:15; Stop 03/18/16 at 11:33; Status DC Vancomycin HCl/ Sodium Chloride (Vancomycin Inj/ NS 500 ml Inj) 530 ml @ 265 mls/hr Q12H IV Last administered on 03/17/16at 16:26; Start 03/10/16 at 16:00; Stop 03/17/16 at 23:00; Status DC Miscellaneous Information SPECIFIC LAB TO BE ... ONCE ONCE XX Last administered on 03/12/16at 04:45; Start 03/12/16 at 03:45; Stop 03/12/16 at 03:46 ; Status DC Metoprolol Tartrate (Lopressor) 75 mg Q8HR PO Last administered on 04/02/16at 13 :13; Start 03/10/16 at 22:00; Stop 04/02/16 at 17:31; Status DC Paroxetine HCl (Paxil Liq) 20 mg DAILY@1900 PEG Last administered on 11/13/16t 17:54; Start 03/12/16 at 19:00 Warfarin Sodium (Coumadin) 1 mg ONCE PO Last administered on 03/21/16at 16:24; Start 03/21/16 at 16:00; Stop 03/21/16 at 21:00; Status DC Warfarin Sodium (Coumadin) 1 mg ONCE PO Last administered on 03/22/16at 17:46; Start 03/22/16 at 16:00; Stop 03/22/16 at 21:00; Status DC Insulin Detemir (Levemir Inj) 32 units HS SQ Last administered on 03/22/16at 20: 18; Start 03/22/16 at 21:00; Stop 03/23/16 at 13:35; Status DC Diltiazem HCl (Cardizem Cd) 120 mg DAILY PO Last administered on 04/14/16at 07: 43; Start 03/22/16 at 16:00; Stop 04/14/16 at 14:39; Status DC Hyoscyamine Sulfate (Levsin Liq) 0.125 mg Q4H PRN PEG INCREASED SECRETIONS Last administered on 04/10/16at 08:05; Start 03/22/16 at 15:15; Stop 04/11/16 at 10:24; Status DC Warfarin Sodium (Coumadin) 2 mg ONCE ONCE PO Last administered on 03/23/16at 17: 26; Start 03/23/16 at 16:00; Stop 03/23/16 at 16:01; Status DC Insulin Detemir (Levemir Inj) 34 units HS SQ Last administered on 03/23/16at 20: 01; Start 03/23/16 at 21:00; Stop 03/24/16 at 13:53; Status DC Insulin Detemir (Levemir Inj) 35 units HS SQ Last administered on 11/13/16t 22: 39; Start 03/24/16 at 21:00 Insulin Aspart (NovoLOG SUPPLEMENTAL SCALE) 1 ACHS SLIDING SCALE SQ Last administered on 04/16/16at 22:27; Start 03/24/16 at 16:00; Stop 04/19/16 at 17:19 ; Status DC Warfarin Sodium (Coumadin) 1 mg ONCE ONCE PO Last administered on 03/30/16at 16 :59; Start 03/30/16 at 16:00; Stop 03/30/16 at 16:01; Status DC Potassium Chloride (KCl 40 Meq/30 ml Liq) 40 meq ONCE ONCE NG Last administered on 03/31/16at 21:28; Start 03/31/16 at 18:30; Stop 03/31/16 at 18:31 ; Status DC Potassium Bicarb/ Potassium Chloride (K-Lyte Cl Eff) 25 meq ONCE ONCE PEG Last administered on 04/02/16at 12:01; Start 04/02/16 at 13:00; Stop 04/02/16 at 13:01; Status DC Metoprolol Tartrate (Lopressor) 75 mg BID PO Last administered on 05/28/16at 21: 03; Start 04/02/16 at 21:00; Stop 05/29/16 at 11:21; Status DC Potassium Bicarb/ Potassium Chloride (K-Lyte Cl Eff) 25 meq ONCE ONCE PEG Last administered on 04/04/16at 14:40; Start 04/04/16 at 12:30; Stop 04/04/16 at 12:31; Status DC Linezolid (Zyvox) 600 mg Q12HR PO Last administered on 04/16/16at 09:11; Start 04/05/16 at 15:00; Stop 04/16/16 at 12:00; Status DC Artificial Tears (Lacrilube Opht Oint) 1 applic Q12HR EACH EYE Last administered on 09/04/16 21:00; Start 04/10/16 at 11:00; Stop 09/05/16 at 14:38 ; Status DC Hyoscyamine Sulfate (Levsin) 0.25 mg Q4H PRN G-TUBE INCREASED SECRETIONS Last administered on 08/31/16 05:02; Start 04/11/16 at 10:30 Diatrizoate Meglum/ Diatrizoate Sod ( Gastroview Liq) 18 ml ONCE ONCE PO Last administered on 04/12/16at 16:45; Start 04/12/16 at 16:15; Stop 04/12/16 at 16:16; Status DC Warfarin Sodium (Coumadin) 3 mg DAILY@16 PO ; Start 04/13/16 at 16:00; Stop 05/27/16 at 11:51; Status DC Iohexol (Omnipaque 350 Inj) 98 ml STK-MED ONCE IV Last administered on at 21:01; Start 04/12/16 at 21:01; Stop 04/12/16 at 21:02; Status DC Diltiazem HCl (Cardizem Cd) 180 mg DAILY PO ; Start 04/15/16 at 09:00; Stop at 08:50; Status DC Ondansetron HCl (Zofran Inj) 4 mg Q6HR PRN IV PUSH nausea/vomiting Last administered on 08/10/16t 10:16; Start 04/14/16 at 19:45 Diltiazem HCl 60 mg 60 mg QID PO Last administered on 04/25/16 17:26; Start at 13:00; Stop 04/25/16 at 19:06; Status DC Sodium Chloride 500 ml @ 500 mls/hr BOLUS ONCE IV Last administered on at 09:15; Start 04/15/16 at 09:15; Stop 04/15/16 at 10:14; Status DC Potassium Chloride/Dextrose/ Sodium Chloride (KCl Inj/D5W-NS 1000 ml Inj) 1,005 ml @ 100 mls/hr Q10H3M IV Last administered on 04/15/16at 21:03; Start at 11:00; Stop 04/16/16 at 09:09; Status DC Enoxaparin Sodium (Lovenox Inj) 90 mg Q12H SQ Last administered on 04/16/16at 21 :12; Start 04/16/16 at 09:00; Stop 04/17/16 at 10:37; Status DC Water 200 ml 200 ml Q4HR TUBE Last administered on 11/14/16 08:00; Start 04/16 at 12:00 Sodium Chloride 1,000 ml @ 84 mls/hr [id number] IV Last administered on at 08:38; Start 04/16/16 at 10:00; Stop 04/20/16 at 12:04; Status DC Ceftriaxone Sodium/Sodium Chloride (Rocephin Inj/NS Inj) 100 ml @ 200 mls/hr Q24H IV Last administered on 05/02/16at 13:19; Start 04/16/16 at 12:00; Stop 05/03/16 at 12:06; Status DC Acetaminophen/ Hydrocodone Bitart (Galva 5-325 Mg) 1 tab Q6HR PEG Last administered on 09/17/16 06:42; Start 04/18/16 at 18:00; Stop 09/17/16 at 09:17 ; Status DC Lactulose (Lactulose Liq) 30 ml NOW ONCE PEG Last administered on 04/19/16at 17 :21; Start 04/19/16 at 17:30; Stop 04/19/16 at 17:31; Status DC Lactulose (Lactulose Liq) 30 ml DAILY PEG Last administered on 05/26/16at 08:14 ; Start 04/20/16 at 09:00; Stop 05/27/16 at 11:39; Status DC Potassium Bicarb/ Potassium Chloride (K-Lyte Cl Eff) 50 meq ONCE ONCE PO Last administered on 04/20/16at 05:52; Start 04/20/16 at 05:45; Stop 04/20/16 at 05:46; Status DC Furosemide (Lasix Inj) 20 mg ONCE ONCE IV PUSH Last administered on 04/20/16at 17:35; Start 04/20/16 at 12:00; Stop 04/20/16 at 12:06; Status DC Insulin Aspart (NovoLOG SUPPLEMENTAL SCALE) 1 ACHS SLIDING SCALE SQ Last administered on 06/02/16at 12:10; Start 04/20/16 at 16:00; Stop 06/02/16 at 21: 44; Status DC Dextrose (D50w (Vial) Inj) 25 ml UNSCH PRN IV HYPOGLYCEMIA-SEE COMMENTS; Start 04/20/16 at 12:00 Glucagon (Glucagon Inj) 1 mg UNSCH PRN IM/SQ HYPOGLYCEMIA-SEE COMMENTS; Start 04/20/16 at 12:00 Lactobacillus Acidophilus (Lactinex) 1 tab Q12HR PEG Last administered on 06/06at 21:34; Start 04/22/16 at 09:00; Stop 06/07/16 at 09:32; Status DC Furosemide (Lasix Inj) 20 mg Q12H IV PUSH Last administered on 04/24/16at 08:52 ; Start 04/22/16 at 09:00; Stop 04/24/16 at 09:25; Status DC Potassium Bicarb/ Potassium Chloride (K-Lyte Cl Eff) 25 meq Q12HR TUBE Last administered on 05/27/16at 08:17; Start 04/22/16 at 09:00; Stop 05/27/16 at 11:51 ; Status DC Albumin Human (Albumin 25% Inj) 12.5 gm Q12H IV Last administered on 04/24/16at 08:46; Start 04/22/16 at 09:00; Stop 04/24/16 at 09:25; Status DC Furosemide (Lasix Inj) 20 mg DAILY IV PUSH Last administered on 05/08/16at 09: 01; Start 04/25/16 at 09:00; Stop 05/08/16 at 11:06; Status DC Albumin Human (Albumin 25% Inj) 12.5 gm DAILY IV Last administered on at 09:02; Start 04/25/16 at 10:00; Stop 05/08/16 at 11:06; Status DC Furosemide (Lasix Inj) 40 mg ONCE ONCE IV PUSH Last administered on 04/25/16at 18:15; Start 04/25/16 at 18:15; Stop 04/25/16 at 18:16; Status DC Albuterol/ Ipratropium (Duoneb Neb) 1 ampule Q6HR NEB NEB Last administered on 04/27/16at 15:52; Start 04/25/16 at 18:30; Stop 04/27/16 at 19:45; Status DC Ipratropium [place] (Atrovent Neb) 0.5 mg Q6HR NEB NEB Last administered on at 16:51; Start 04/25/16 at 22:00; Stop 04/27/16 at 16:44; Status DC Levalbuterol HCl (Xopenex Neb) 0.31 mg Q4HR NEB NEB Last administered on at 23:48; Start 04/25/16 at 20:00; Stop 04/27/16 at 16:43; Status DC Levalbuterol HCl (Xopenex Neb) 0.31 mg Q2HR NEB PRN NEB SHORTNESS OF BREATH; Start 04/25/16 at 18:45; Stop 04/28/16 at 10:50; Status DC Diltiazem HCl (Cardizem) 90 mg QID PEG Last administered on 07/17/16at 09:27; Start 04/25/16 at 21:00; Stop 07/17/16 at 17:52; Status DC Diltiazem HCl (Cardizem) 30 mg NOW ONCE PEG Last administered on 04/25/16at 21: 36; Start 04/25/16 at 19:15; Stop 04/25/16 at 19:16; Status DC Levalbuterol HCl (Xopenex Neb) 0.31 mg Q8HR NEB NEB ; Start 04/28/16 at 00:00; Stop 04/28/16 at 10:50; Status DC Levalbuterol HCl (Xopenex Neb) 0.63 mg Q4HR NEB PRN NEB SHORTNESS OF BREATH Last administered on 05/04/16at 15:26; Start 04/28/16 at 11:00; Stop 05/04/16 at 00:51; Status DC Levalbuterol HCl (Xopenex Neb) 0.63 mg Q8HR NEB NEB Last administered on 05/04at 00:07; Start 04/28/16 at 16:00; Stop 05/04/16 at 00:50; Status DC Polyethylene Glycol/ Electrolytes 4000 ml 4,000 ml ONCE ONCE PO Last administered on 05/05/16at 08:10; Start 05/05/16 at 08:45; Stop 05/05/16 at 08 :46; Status DC Cefazolin Sodium/ Dextrose 50 ml @ 100 mls/hr ONCE ONCE IV ; Start 05/06/16 at 14:00; Stop 05/06/16 at 14:29; Status DC Metronidazole 100 ml @ 100 mls/hr ONCE ONCE IV Last administered on at 14:00; Start 05/06/16 at 14:00; Stop 05/06/16 at 14:59; Status DC Ceftriaxone Sodium/Sodium Chloride (Rocephin Inj/NS Inj) 100 ml @ 200 mls/hr Q24H IV Last administered on 06/09/16at 12:36; Start 05/03/16 at 12:00; Stop 06/10/16 at 12:48; Status DC Levalbuterol HCl (Xopenex Neb) 0.63 mg Q8HR NEB NEB Last administered on 05/05at 08:00; Start 05/04/16 at 00:49; Stop 05/05/16 at 08:07; Status DC Levalbuterol HCl (Xopenex Neb) 0.63 mg Q4HR NEB PRN NEB SHORTNESS OF BREATH Last administered on 11/13/16t 10:36; Start 05/05/16 at 12:00 Levalbuterol HCl (Xopenex Neb) 0.63 mg Q8HR NEB NEB Last administered on 05/08at 23:56; Start 05/05/16 at 08:15; Stop 05/09/16 at 08:15; Status DC Potassium Bicarb/ Potassium Chloride (K-Lyte Cl Eff) 25 meq DAILY TUBE Last administered on 11/14/16 08:18; Start 05/28/16 at 09:00 Aspirin (Aspirin) 325 mg DAILY TUBE Last administered on 11/14/16 08:18; Start 05/27/16 at 11:40 Docusate Sodium (Colace Liq) 100 mg DAILY PRN PO constipation Last administered on 08/16/16 21:09; Start 05/27/16 at 11:45; Stop 08/31/16 at 09:00 ; Status DC Metoprolol Tartrate (Lopressor) 50 mg BID PO Last administered on 08/23/16 09: 03; Start 05/29/16 at 21:00; Stop 08/23/16 at 15:33; Status DC Acetaminophen/ Hydrocodone Bitart (Galva 5-325 Mg) 1 tab Q6H PRN TUBE BREAKTHROUGH PAIN Last administered on 08/02/16 15:11; Start 06/03/16 at 03:00 ; Stop 09/17/16 at 14:33; Status DC Insulin Aspart (NovoLOG SUPPLEMENTAL SCALE) 1 ACHS SLIDING SCALE SQ Last administered on 06/06/16at 21:35; Start 06/03/16 at 07:00; Stop 06/07/16 at 12 :24; Status DC Lactobacillus Acidophilus (Lactinex) 1 tab TID PEG Last administered on 09:13; Start 06/07/16 at 13:00; Stop 10/13/16 at 12:08; Status DC Insulin Aspart 1 1 AC BREAKFAST SQ Last administered on 11/05/16 07:00; Start 06/08/16 at 07:00 Ceftriaxone Sodium/Sodium Chloride (Rocephin Inj/NS Inj) 100 ml @ 200 mls/hr Q24H IV Last administered on 07/28/16 12:19; Start 06/10/16 at 12:00; Stop 07/29/16 at 13:30; Status DC Heparin Sodium (Porcine) (Heparin Inj) 5,000 units Q12HR SQ Last administered on 06/11/16at 00:58; Start 06/10/16 at 14:15; Stop 06/11/16 at 06:21; Status DC Heparin Sodium (Porcine) (Heparin Inj) 5,000 units Q8HR SQ Last administered on 11/14/16 05:39; Start 06/11/16 at 14:00 Diltiazem HCl (Cardizem) 30 mg QID PEG Last administered on 08/16/16 08:31; Start 07/17/16 at 18:00; Stop 08/16/16 at 12:06; Status DC Bacitracin 1 applic 1 applic BID TOP Last administered on 11/14/16 08:19; Start 07/20/16 at 10:00 Lactated Ringer's 1,000 ml @ 30 mls/hr Q24H IV ; Start 07/21/16 at 17:45; Stop 08/14/16 at 12:08; Status DC Sodium Chloride (NS 500 ml Inj) 500 ml @ 30 mls/hr [id number] IV ; Start 07/21/16 at 17:45; Stop 07/22/16 at 17:44; Status DC Insulin Human Regular (NovoLIN R INJ) See Protocol Table ... UNSCH X1 PRN SQ SEE PROTOCOL; Start 07/21/16 at 17:45; Stop 07/22/16 at 17:44; Status DC Metoprolol Tartrate (Lopressor) 25 mg UNSCH X1 PRN PO SEE LABEL COMMENTS; Start 07/21/16 at 17:45; Stop 07/22/16 at 17:44; Status DC Lidocaine/ Epinephrine (Xylocaine-Epi 1%-1:100,000 Inj) 40 ml STK-MED ONCE .ROUTE Last administered on 07/22/16 10:56; Start 07/22/16 at 10:04; Stop at 10:05; Status DC Ketamine HCl (Ketalar Inj) 500 mg STK-MED ONCE .ROUTE ; Start 07/22/16 at 10:50; Stop 07/22/16 at 10:51; Status DC Propofol 600 mg 600 mg STK-MED ONCE IV ; Start 07/22/16 at 12:00; Stop 07/23/16 at 14:36; Status DC Dextrose 1,000 ml @ 40 mls/hr Q24H ONCE IV Last administered on 07/28/16 14:33 ; Start 07/28/16 at 14:00; Stop 07/29/16 at 13:59; Status DC Ampicillin Sodium/ Sulbactam Sodium/ Sodium Chloride (Unasyn Inj/NS Inj) 100 ml @ 200 mls/hr Q6H IV Last administered on 08/01/16 12:30; Start 07/29/16 at 14: 00; Stop 08/01/16 at 14:13; Status DC Ondansetron HCl 4 mg 4 mg ONCE ONCE IV PUSH Last administered on 07/30/16 02: 46; Start 07/30/16 at 00:30; Stop 07/30/16 at 00:33; Status DC Lactated Ringer's 1,000 ml @ 30 mls/hr Q24H IV ; Start 07/30/16 at 06:00; Stop 08/14/16 at 12:09; Status DC Sodium Chloride (NS 500 ml Inj) 500 ml @ 30 mls/hr [id number] IV ; Start 07/30/16 at 06:00; Stop 07/31/16 at 05:59; Status DC Pantoprazole Sodium (Protonix Inj) 40 mg Q12H IV PUSH Last administered on 11/14 08:18; Start 07/30/16 at 10:15 Propofol 200 mg 200 mg STK-MED ONCE IV ; Start 07/30/16 at 09:41; Stop 07/30/16 at 10:19; Status DC Piperacillin Sod/ Tazobactam Sod (Zosyn 4.5 Gm Premix) 100 ml @ 200 mls/hr Q6H IV Last administered on 08/07/16 09:37; Start 08/01/16 at 16:00; Stop at 16:10; Status DC Linezolid (Zyvox) 600 mg Q12HR PO Last administered on 08/22/16 09:10; Start at 21:00; Stop 08/22/16 at 15:55; Status DC Sodium Chloride ([place]) 1 spray BID NASAL Last administered on 08:19; Start 08/01/16 at 21:00 Metronidazole 500 mg 500 mg Q8H PO Last administered on 08/08/16 08:28; Start 08/07/16 at 16:00; Stop 08/08/16 at 16:10; Status DC Sodium Chloride (NS 1000 ml Inj) 1,000 ml @ 42 mls/hr [id number] IV Last administered on 08/14/16 12:44; Start 08/14/16 at 12:00; Stop 08/15/16 at 10:56 ; Status DC Fentanyl Citrate (fentaNYL INJ) 250 mcg STK-MED ONCE .ROUTE Last administered on 08/14/16 15:36; Start 08/14/16 at 15:36; Stop 08/14/16 at 15:37; Status DC Iohexol (Omnipaque 350 Inj) 30 ml STK-MED ONCE G-TUBE Last administered on 08/14 15:45; Start 08/14/16 at 15:52; Stop 08/14/16 at 15:53; Status DC Diltiazem HCl (Cardizem) 30 mg QID PEG Last administered on 11/14/16 08:19; Start 08/16/16 at 13:00 Polyethylene Glycol (Miralax) 17 gm ONCE ONCE PEG Last administered on 11:32; Start 08/17/16 at 12:00; Stop 08/17/16 at 12:01; Status DC Amoxicillin 500 mg 500 mg Q8HR PO Last administered on 11/14/16 05:38; Start 08/22/16 at 22:00 Cefepime HCl/ Sodium Chloride (Maxipime Inj/NS Inj) 100 ml @ 200 mls/hr Q8H IV Last administered on 09/03/16 10:46; Start 08/23/16 at 16:00; Stop 09/03/16 at 15:02; Status DC Metoprolol Tartrate (Lopressor) 75 mg BID PO Last administered on 09/13/16 08: 42; Start 08/23/16 at 21:00; Stop 09/13/16 at 13:09; Status DC Docusate Sodium (Colace Liq) 100 mg BID PO Last administered on 11/13/16 08:49 ; Start 08/30/16 at 21:00 Sennosides (Senokot) 17.2 mg DAILY PO Last administered on 09/25/16 08:36; Start 08/30/16 at 14:00; Stop 09/25/16 at 16:09; Status DC Lactulose (Lactulose Liq) 30 ml DAILY PO Last administered on 11/13/16 08:48; Start 09/02/16 at 15:30 Artificial Tears (Tears Naturale Opth Soln) 1 drop BID EACH EYE Last administered on 11/14/16 08:19; Start 09/05/16 at 21:00 Midazolam HCl (Versed Inj) 2 mg STK-MED ONCE .ROUTE Last administered on 11:37; Start 09/09/16 at 11:37; Stop 09/09/16 at 11:38; Status DC Fentanyl Citrate (fentaNYL INJ) 100 mcg STK-MED ONCE .ROUTE Last administered on 09/09/16 11:38; Start 09/09/16 at 11:38; Stop 09/09/16 at 11:39; Status DC Iohexol (Omnipaque 350 Inj) 20 ml STK-MED ONCE G-TUBE Last administered on 09/09 11:50; Start 09/09/16 at 11:50; Stop 09/09/16 at 12:15; Status DC Metoprolol Tartrate (Lopressor) 50 mg BID PO Last administered on 11/14/16 08: 19; Start 09/13/16 at 21:00 Acetaminophen/ Hydrocodone Bitart (Galva 5-325 Mg) 1 tab Q6H PEG ; Start at 11:00; Stop 09/17/16 at 14:25; Status DC Acetaminophen/ Hydrocodone Bitart (Galva 5-325 Mg) 1 tab DAILY@1600 PO ; Start 09/17/16 at 16:00; Stop 09/17/16 at 16:00; Status DC Morphine Sulfate (Morphine Inj) 1 mg Q24H PRN IV PUSH dressing change 30 min before Last administered on 10/22/16 02:00; Start 09/17/16 at 14:30 Acetaminophen/ Hydrocodone Bitart (Galva 5-325 Mg) 1 tab DAILY@0000 PO Last administered on 09/17/16 23:43; Start 09/18/16 at 00:00; Stop 09/20/16 at 12:46; Status DC Acetaminophen/ Hydrocodone Bitart (Galva 5-325 Mg) 1 tab Q8H PO Last administered on 10/13/16 13:38; Start 09/20/16 at 13:00; Stop 10/13/16 at 18:29 ; Status DC Ketoconazole (Nizoral 2% Cream) 1 applic Q12HR TOPICAL Last administered on 08:19; Start 09/24/16 at 21:00 Sennosides (Senna Liq) 8.8 mg DAILY@1600 PO Last administered on 11/12/16 16: 45; Start 09/25/16 at 17:00 Sodium Biphosphate/ Sodium Phosphate (Fleets Enema (Adult)) 133 ml UNSCH PRN [place] CONSTIPATION; Start 09/25/16 at 16:00 Bisacodyl (Dulcolax Supp) 10 mg DAILY PRN RECTAL CONSTIPATION Last administered on 10/20/16 12:53; Start 09/26/16 at 15:30 Bisacodyl (Dulcolax Supp) 10 mg ONCE ONCE RECTAL Last administered on 16:10; Start 09/26/16 at 15:30; Stop 09/26/16 at 15:31; Status DC Cyclobenzaprine HCl (Flexeril) 5 mg Q8H PO Last administered on 10/13/16 13:37 ; Start 10/13/16 at 12:15; Stop 10/13/16 at 18:27; Status DC Magnesium Hydroxide (Milk Of Magnesia Liq) 30 ml DAILY PRN PO constipation Last administered on 10/20/16 12:54; Start 10/13/16 at 14:30 Acetaminophen/ Hydrocodone Bitart (Galva 5-325 Mg) 1 tab Q6H PRN PO PAIN SCALE 1 TO 10; Start 10/13/16 at 18:30; Stop 10/13/16 at 18:30; Status DC Acetaminophen/ Hydrocodone Bitart (Galva 5-325 Mg) 1 tab Q6H PRN PO PAIN SCALE 1 TO 10 Last administered on 11/07/16 14:03; Start 10/13/16 at 18:45 Cyclobenzaprine HCl (Flexeril) 5 mg HS PRN PO muscle relaxant Last administered on 10/22/16 21:17; Start 10/14/16 at 14:15 Fentanyl Citrate (fentaNYL INJ) 100 mcg STK-MED ONCE .ROUTE ; Start 10/23/16 at 16:51; Stop 10/23/16 at 16:52; Status DC Glycerin (Glycerin Adult Supp) 2 gm ONCE ONCE RECTAL Last administered on 15:29; Start 10/26/16 at 15:00; Stop 10/26/16 at 15:01; Status DC Nitrofurantoin Macrocrystals (Macrobid) 100 mg BIDPC PO Last administered on t 09:36; Start 10/26/16 at 15:00; Stop 10/29/16 at 14:59; Status DC Date of Insertion: Oct 12, 2016 A/P Problem List: (1) CVA (cerebral vascular accident) ICD Code: I63.9 Status: Acute (2) A-fib ICD Code: I48.91 Status: Chronic (3) DM (diabetes mellitus) ICD Code: E11.9 Status: Chronic Assessment and Plan 1. 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 Tracks with his eyes. Continue Keppra for seizure prophylaxis. PT/OT signed off as patient is unable to participate. -Need placement. Difficult. Appreciate case management assistance. 2. Clogged PEG tube on 10/14 and 10/23 status post PEG tube change, tube feedings to Glucerna 1.5 at 50 ml per hour. jose r one pack BID. mix with 6 oz of water and flush into feeding tube. 3. Chronic respiratory failure -Secondary to CVA. Status post tracheostomy. Continue pulmonary toilet and bronchodilators as needed. Continue trach care, suctioning. Levsin as needed. -Pulmonary currently following . Appreciate assistance. 4. Atrial fibrillation -Continue rate control with Cardizem and metoprolol. Echocardiogram in November 2015 shows preserved ejection fraction. Coumadin discontinued secondary to bleeding. Rate controlled. Continue aspirin and prophylactic heparin dose. 5. History of non-Hodgkin's lymphoma - Status post brain biopsy on December 13 by neurosurgery. Pathology consistent with acute infarct without evidence of lymphoma. Oncology has signed Off 6. Diabetes mellitus -Hemoglobin A1c is 7. Continue Levemir. Monitor Accu-Cheks and cover with sliding scale insulin. Overall blood sugar continues well controlled. 7. Decubitus ulcer stage IV -Continue wound care, twice-daily dressing changes. Wound care recommendations. Continue pressure relief measures including turning and positioning. Patient's family has declined a diverting colostomy. Previous Wound culture growing Klebsiella. on Augmentin. Status post wide excision of sacral skin and biopsy of the cavity lining with debridement on 07/22/16. ID specialist recommended to continue on Amoxicillin and Cefepime for two months will be until the end of September or first days of October. 8. Gastric ulcer, reflux esophagitis - EGD on 07/30/16 showed gastric ulcers. Appreciate GI recommendations. Continue PPI. H&H stable. 9. UTI pseudomonas aeruginosa treated with abx - Resolved. - Repeat Ucx 08/28/16 negative. 10. Constipation: -Having regular bowel movements. -on lactulose. Monitor. 11. Anemia Hemoglobin 9.4 stable DVT prophylaxis on Heparin Discussed with his Mother in the room. Discharge Planning dc planning to SNF-no funding- SSI pending. Problem Qualifiers (1) DM (diabetes mellitus): Qualified Code: E11.9 - Type 2 diabetes mellitus without complications Patsy Wilkes MD Nov 14, 2016 10:26
[2016-11-14] MEDS: SENNOSIDES SYRUP 8.8 MG/5 ML CUP PO SCH (14:25)
[2016-11-14] MEDS: PARoxetine HCL SUSP 20 MG/10 ML UDC PEG SCH (17:50)
[2016-11-14] MEDS: ACETAMINOPHEN 650 MG/20.3 ML UDC TUBE PRN (21:18)
[2016-11-14] MEDS: INSULIN DETEMIR 100 UNITS/ML VIAL SQ SCH (21:19)
[2016-11-15] VITALS (11 sets, daily range): BP systolic 100–131; BP diastolic 64–80; PULSE 80–106; RESP 18–22; TEMP 96–99.8; O2SAT 95–100
[2016-11-15] MEDS: FREE WATER TUBE SCH ×6 (04:00→23:50)
[2016-11-15] MEDS: HEPARIN SODIUM - SQ 10,000 UNITS/ML VIAL SQ SCH ×3 (05:36→22:06)
[2016-11-15] MEDS: AMOXICILLIN (TRIHYDRATE) 500 MG CAP PO SCH ×3 (05:36→22:04)
[2016-11-15] MEDS: ACETIC ACID 0.25% SOLN 1000 ML IRR BTL IRRIGATION SCH ×3 (05:37→23:50)
[2016-11-15] MEDS: INSULIN ASPART SUPPLEMENTAL SCALE SQ SCH (06:26)
[2016-11-15] MEDS: METOPROLOL TARTRATE 50 MG TAB PO SCH ×2 (07:53→21:30)
[2016-11-15] MEDS: POTASSIUM CHLORIDE 25 MEQ EFFERVESCENT TAB TUBE SCH (07:53)
[2016-11-15] MEDS: PANTOPRAZOLE SODIUM 40 MG VIAL IV PUSH SCH ×2 (07:53→22:06)
[2016-11-15] MEDS: levETIRAcetam 500 MG/5 ML UDC TUBE SCH ×2 (07:53→21:30)
[2016-11-15] MEDS: ASPIRIN 325 MG TAB TUBE SCH (07:53)
[2016-11-15] MEDS: DILTIAZEM HCL 30 MG TAB PEG SCH ×4 (07:53→21:30)
[2016-11-15] MEDS: SODIUM CHLORIDE 0.65% NASAL SPRAY 45 ML BTL NASAL SCH ×2 (07:54→21:00)
[2016-11-15] MEDS: KETOCONAZOLE 2% CREAM 15 GM TOPICAL SCH ×2 (07:54→21:00)
[2016-11-15] MEDS: BACITRACIN TOP OINT 15 GM TUBE TOP SCH ×2 (07:54→21:34)
[2016-11-15] MEDS: NYSTATIN 100,000 U/GM PWD 15 GM BTL TOPICAL SCH ×2 (07:54→21:00)
[2016-11-15] MEDS: ARTIFICIAL TEARS OPTH SOLN 15 ML BTL EACH EYE SCH ×2 (07:54→21:34)
[2016-11-15] MEDS: LACTULOSE SYRUP 20 GM/30 ML CUP PO SCH (07:54)
[2016-11-15] MEDS: DOCUSATE SODIUM 100 MG/10 ML UDC PO SCH ×2 (07:54→21:00)
--- NOTE | 2016-11-15 10:16 | RADRPT ---
EXAM DATE/TIME: 11/15/2016 09:31 [facility] COMPARISON: CHEST SINGLE AP, October 18, 2016, 19:17. INDICATIONS : Fever. MEDICAL HISTORY : Hypertension. Diabetes mellitus type II. SURGICAL HISTORY : None. ENCOUNTER: Subsequent ACUITY: 4 - 6 days PAIN SCORE: 0/10 LOCATION: Bilateral chest FINDINGS: Trache tube is in good position. Lungs are clear. Heart and pulmonary vascularity are normal. Port ion of bony skeleton visualized unremarkable. CONCLUSION: Negative chest for acute disease. Octavio Ramírez MD FACR on November 15, 2016 at 10:05 Board Certified Radiologist. This report was verified electronically.
--- NOTE | 2016-11-15 10:43 | HHI.PR ---
Subjective Remarks Follow-up for CVA Patient had a fever last night of 101.6. Otherwise he continues to remain nonverbal. Dealt with nurse at the bedside stated that there has not been any other acute events. Objective Vitals Vital Signs Date Time Temp Pulse Resp B/P Pulse Ox O2 Delivery O2 Flow Rate FiO2 11/15/16 09:27 86 11/15/16 08:33 93 18 117/71 99 11/15/16 06:26 97.9 86 22 116/75 100 11/15/16 00:54 99.8 80 20 103/64 100 11/14/16 21:22 101.6 98 113/71 11/14/16 20:41 99.4 97 20 122/78 99 11/14/16 20:38 98 T-piece 11/14/16 16:00 98.2 87 20 117/77 97 11/14/16 12:12 99 T-piece 6.00 28 11/14/16 12:12 99 T-piece 6.00 28 11/14/16 12:00 97.8 83 20 115/72 98 11/14/16 11:22 87 I/O 11/14/16 11/14/16 11/14/16 11/15/16 11/15/16 11/15/16 07:00 15:00 23:00 07:00 15:00 23:00 Intake Total 1200 ml Output Total 1200 ml Balance 1200 ml -1200 ml Tube Feeding 600 ml Other 600 ml Output Urine Total 1200 ml # Voids 1 # Bowel Movements 2 Objective Remarks Gen NAD CV RRR. no r//g Resp trach in place with transmitted upper respiratory sounds. abd soft NDNT NEURO patient is sleepy today but can be aroused. He does not follow any commands. SKIN Posterior Coccyx Wound is dry and clean. No discharge noted. + pinkish discoloration but no erythema. no warm Procedures 01/02/16 PEG placement 01/02/16 tracheostomy 07/22/2016 Wide excision of sacral skin wound, biopsy of the cavity lining and debridement. PEG tube replacement 07/29/16 VAC changes- M-W-F 4/5- GJ tube replacement Medications and IVs Current Medications IV Flush (NS Flush) 2 ml UNSCH PRN IVF FLUSH AFTER USING IV ACCESS Last administered on 09/28/16t 21:18; Start 12/21/15 at 06:00 Ondansetron HCl (Zofran Inj) 4 mg STK-MED ONCE .ROUTE ; Start 12/21/15 at 06:22; Stop 12/21/15 at 06:23; Status DC Ondansetron HCl (Zofran Inj) 4 mg ONCE ONCE IV PUSH Last administered on at 06:43; Start 12/21/15 at 06:30; Stop 12/21/15 at 06:31; Status DC Diltiazem HCl 20 mg 20 mg ONCE ONCE IV Last administered on 12/21/15at 06:42; Start 12/21/15 at 06:30; Stop 12/21/15 at 06:31; Status DC Diltiazem HCl/ Sodium Chloride (Cardizem Inj/NS Inj) 125 ml @ 0 mls/hr TITRATE IV Last administered on 12/21/15at 06:47; Start 12/21/15 at 06:30; Stop 12/21/15 at 13:00; Status DC Acetaminophen (Tylenol) 650 mg ONCE ONCE PO ; Start 12/21/15 at 06:45; Stop 12/20 at 06:46; Status DC Lorazepam (Ativan Inj) 1 mg ONCE ONCE IV PUSH Last administered on 12/21/15at 07 :22; Start 12/21/15 at 07:15; Stop 12/21/15 at 07:16; Status DC Etomidate (Amidate Inj) 40 mg STK-MED ONCE .ROUTE Last administered on at 08:17; Start 12/21/15 at 07:37; Stop 12/21/15 at 07:38; Status DC Succinylcholine Chloride 200 mg 200 mg STK-MED ONCE .ROUTE Last administered on 12/21/15at 08:18; Start 12/21/15 at 07:37; Stop 12/21/15 at 07:38; Status DC Propofol (Diprivan 1000 Mg/100ml Inj) 100 ml @ As Directed STK-MED ONCE .ROUTE Last administered on 12/21/15at 08:19; Start 12/21/15 at 07:46; Stop 12/21/15 at 07:47; Status DC Propofol (Diprivan 1000 Mg/100ml Inj) search Sets for Drip. NOW PRN IV SEDATION Last administered on 12/22/15at 06:25; Start 12/21/15 at 08:30; Stop 12/28 at 15:43; Status DC Gadodiamide (Omniscan Pf Inj) 18 ml STK-MED ONCE IV Last administered on at 10:11; Start 12/21/15 at 10:11; Stop 12/21/15 at 10:12; Status DC Pantoprazole Sodium (Protonix Inj) 40 mg DAILY IV Last administered on at 07:39; Start 12/21/15 at 13:00; Stop 01/03/16 at 10:10; Status DC Albuterol/ Ipratropium (Duoneb Neb) 1 ampule Q6HR NEB INH Last administered on 12/25/15at 07:51; Start 12/21/15 at 13:00; Stop 12/25/15 at 13:00; Status DC Miscellaneous Information 1 [id number] Last administered on 12/21/15at 13:00; Start 12/21/15 at 13:00; Stop 01/12/16 at 11:47; Status DC Chlorhexidine Gluconate (Chlorhexidine 2% Cloth) 3 pack Taper DAILY@04 TOP Last administered on 01/11/16at 04:10; Start 12/22/15 at 04:00; Stop 01/12/16 at 11:47; Status DC Chlorhexidine Gluconate 3 pack 3 pack UNSCH PRN TOP HYGIENIC CARE; Start at 13:00; Stop 01/12/16 at 11:47; Status DC Sodium Chloride (NS 1000 ml Inj) 1,000 ml @ 75 mls/hr [id number] IV Last administered on 12/22/15at 17:00; Start 12/21/15 at 13:00; Stop 12/22/15 at 19:01; Status DC Dextrose (D50w (Vial) Inj) 25 ml UNSCH PRN IV PUSH HYPOGLYCEMIA-SEE COMMENTS; Start 12/21/15 at 13:00; Stop 04/19/16 at 17:19; Status DC Glucagon (Glucagon Inj) 1 mg UNSCH PRN OTHER HYPOGLYCEMIA-SEE COMMENTS; Start 12/21/15 at 13:00; Stop 04/19/16 at 17:19; Status DC Insulin Human Regular (NovoLIN R SUPPLEMENTAL SCALE) 1 Q6H SQ Last administered on 01/04/16at 06:31; Start 12/21/15 at 13:00; Stop 01/04/16 at 10:05 ; Status DC Levetriacetam (Keppra) 500 mg Q12HR PO Last administered on 12/27/15at 09:00; Start 12/21/15 at 13:45; Stop 12/27/15 at 09:44; Status DC Heparin Sodium (Porcine) (Heparin Inj) 5,000 units BID SQ Last administered on 12/22/15at 20:52; Start 12/21/15 at 21:00; Stop 12/23/15 at 08:32; Status DC Warfarin Sodium (Coumadin) 7.5 mg ONCE ONCE PO Last administered on 12/21/15at 21:43; Start 12/21/15 at 21:00; Stop 12/21/15 at 21:01; Status DC Warfarin Sodium (Coumadin) 5 mg DAILY@16 PO Last administered on 12/23/15at 16:00 ; Start 12/22/15 at 16:00; Stop 12/26/15 at 09:29; Status DC Patient Medication Teaching (Coumadin Booklet) 1 ONCE ONCE XX Last administered on 12/21/15at 20:15; Start 12/21/15 at 20:15; Stop 12/21/15 at 20:16; Status DC Chlorhexidine Gluconate (Peridex 0.12% Liq) 15 ml BID@08,20 MT Last administered on 01/12/16at 08:00; Start 12/22/15 at 20:00; Stop 01/12/16 at 11:47 ; Status DC Gadodiamide 20 ml 20 ml STK-MED ONCE IV Last administered on 12/22/15at 09:55; Start 12/22/15 at 09:55; Stop 12/22/15 at 09:56; Status DC Pharmacy Profile Note ml @ 0 mls/hr UNSCH OTHER ; Start 12/22/15 at 11:00; Stop 12/22/15 at 19:43; Status DC Sodium Chloride 1,000 ml @ 50 mls/hr Q20H IV Last administered on 12/24/15at 20: 02; Start 12/22/15 at 18:44; Stop 12/25/15 at 11:52; Status DC Pharmacy Profile Note (Coumadin Consult Pharmacy) 0 ml @ 0 mls/hr UNSCH OTHER ; Start 12/22/15 at 19:45; Stop 01/04/16 at 12:25; Status DC Acetaminophen 650 mg 650 mg Q6H PRN PO TEMP > 100 Last administered on at 13:24; Start 12/23/15 at 02:45; Stop 12/30/15 at 15:04; Status DC Potassium Chloride 100 ml @ 50 mls/hr Q2H PRN IV For Potassium 2.8 - 3.2 mEq/L ; Start 12/23/15 at 08:30; Stop 01/09/16 at 11:14; Status DC Potassium Chloride (KCl 20 Meq Premix Inj) 100 ml @ 50 mls/hr Q2H PRN IV For Potassium 2.8 - 3.2 mEq/L; Start 12/23/15 at 08:30; Stop 01/09/16 at 11:14; Status DC Potassium Chloride 40 meq 40 meq UNSCH PRN PO/TUBE For Potassium 3.3 - 3.5 mEq/ L; Start 12/23/15 at 08:30; Stop 01/09/16 at 11:14; Status DC Potassium Chloride 100 ml @ 25 mls/hr UNSCH PRN IV For Potassium 3.3 - 3.5 mEq /L; Start 12/23/15 at 08:30; Stop 01/09/16 at 11:14; Status DC Potassium Chloride 100 ml @ 50 mls/hr Q2H PRN IV For Potassium 3.3 - 3.5 mEq/L ; Start 12/23/15 at 08:30; Stop 01/09/16 at 11:14; Status DC Magnesium Sulfate/ Sodium Chloride (Magnesium Sulfate Inj/NS Inj) 100 ml @ 50 mls/hr UNSCH PRN IV For Magnesium 0.9 - 1.1 mg/dL; Start 12/23/15 at 08:30; Stop 01/09/16 at 11:14; Status DC Magnesium Oxide 800 mg 800 mg UNSCH PRN PO For Magnesium 1.2 - 1.6 mg/dL; Start 12/23/15 at 08:30; Stop 01/09/16 at 11:14; Status DC Magnesium Sulfate/ Sodium Chloride (Magnesium Sulfate Inj/NS Inj) 100 ml @ 50 mls/hr UNSCH PRN IV For Magnesium 1.2 - 1.6 mg/dL; Start 12/23/15 at 08:30; Stop 01/09/16 at 11:14; Status DC Potassium Phosphate 2000 mg 2,000 mg Q4H PRN PO For Phosphorus < 2.5 mg/dL; Start 12/23/15 at 08:30; Stop 01/09/16 at 11:14; Status DC Sodium Phosphate/ Sodium Chloride (Sodium Phosphate Inj/NS 250 ml Inj) 250 ml @ 42 mls/hr UNSCH PRN IV For Phosphorus < 2.5 mg/dL; Start 12/23/15 at 08:30; Stop 01/09/16 at 11:14; Status DC Potassium Chloride (KCl 40 Meq/30 ml Liq) 40 meq UNSCH PRN PO/TUBE SEE LABEL COMMENTS; Start 12/23/15 at 08:30; Stop 01/09/16 at 11:14; Status DC Potassium Phosphate 2000 mg 2,000 mg UNSCH PRN PO/TUBE SEE LABEL COMMENTS; Start 12/23/15 at 08:30; Stop 01/09/16 at 11:14; Status DC Potassium Phosphate 30 mmol/ Sodium Chloride 260 ml @ 42 mls/hr UNSCH PRN IV SEE LABEL COMMENTS; Start 12/23/15 at 08:30; Stop 01/09/16 at 11:14; Status DC Sodium Chloride 1,000 ml @ 75 mls/hr [id number] IV ; Start 12/23/15 at 08:30; Stop 12/23/15 at 08:30; Status DC Piperacillin Sod/ Tazobactam Sod 50 ml @ 100 mls/hr Q6H IV Last administered on 12/30/15at 10:02; Start 12/23/15 at 10:00; Stop 12/30/15 at 14:50; Status DC Vancomycin HCl/ Sodium Chloride (Vancomycin Inj/ NS 250 ml Inj) 250 ml @ 250 mls/hr Q12H IV Last administered on 12/29/15at 09:01; Start 12/24/15 at 08:45; Stop 12/29/15 at 15:33; Status DC Warfarin Sodium (Coumadin) 4 mg DAILY@16 PO Last administered on 12/28/15at 16:00 ; Start 12/26/15 at 16:00; Stop 01/04/16 at 12:25; Status DC Levetriacetam (Keppra Liq) 500 mg Q12HR TUBE Last administered on 11/15/16t 07 :53; Start 12/27/15 at 21:00 Docusate Sodium (Colace Liq) 100 mg Q12HR TUBE Last administered on 01/15/16at 09:01; Start 12/27/15 at 21:00; Stop 04/16/16 at 08:50; Status DC Sennosides (Senna Liq) 8.8 mg DAILY TUBE Last administered on 01/15/16at 09:01 ; Start 12/27/15 at 17:00; Stop 01/15/16 at 20:37; Status DC Bisacodyl (Dulcolax Supp) 10 mg ONCE ONCE RECTAL ; Start 12/27/15 at 16:15; Stop 12/27/15 at 16:15; Status DC Albuterol/ Ipratropium (Duoneb Neb) 1 ampule Q4HR NEB PRN NEB RESPIRATORY DISTRESS Last administered on 12/29/15at 12:17; Start 12/27/15 at 22:00; Stop at 08:16; Status DC Bisacodyl (Dulcolax Supp) 10 mg ONCE ONCE RECTAL ; Start 12/28/15 at 12:00; Stop 12/28/15 at 12:01; Status DC Sodium Chloride (Sodium Chloride) 1 gm BID TUBE Last administered on 12/29/15at 09:02; Start 12/28/15 at 21:00; Stop 12/29/15 at 15:43; Status DC Lactulose (Lactulose Liq) 30 ml DAILY TUBE Last administered on 12/29/15at 09:02 ; Start 12/28/15 at 20:30; Stop 12/29/15 at 15:43; Status DC Levofloxacin (Levaquin) 750 mg DAILY@16 TUBE ; Start 12/29/15 at 16:00; Stop 05/05 at 16:00; Status DC Sodium Chloride (Sodium Chloride) 1 gm DAILY TUBE Last administered on at 07:29; Start 12/30/15 at 09:00; Stop 12/31/15 at 14:08; Status DC Water 200 ml 200 ml Q6HR G-TUBE Last administered on 12/31/15at 04:19; Start 06/05 at 14:45; Stop 12/31/15 at 07:31; Status DC Ceftriaxone Sodium/Sodium Chloride (Rocephin Inj/NS Inj) 100 ml @ 200 mls/hr Q12H IV Last administered on 01/03/16at 02:47; Start 12/30/15 at 15:00; Stop at 10:09; Status DC Acetaminophen (Tylenol 650 Mg/ 20 ml Liq) 650 mg Q6H PRN TUBE TEMP >100.4 Last administered on 11/14/16t 21:18; Start 12/30/15 at 15:15 Lactobacillus Acidophilus (Lactinex Pkt) 1 gm BID TUBE Last administered on at 09:00; Start 12/30/15 at 21:00; Stop 02/10/16 at 14:30; Status DC Enoxaparin Sodium (Lovenox Inj) 90 mg Q12H SQ Last administered on 01/01/16at 21 :57; Start 12/31/15 at 08:00; Stop 01/03/16 at 10:33; Status DC Water (Free Water) 100 ml Q12H G-TUBE ; Start 12/31/15 at 18:00; Stop 12/31/15 at 18:00; Status DC Acetaminophen/ Hydrocodone Bitart ([place] 5-325 Mg) 1 tab Q6H PRN PO PAIN Last administered on 05/26/16at 20:46; Start 12/31/15 at 15:00; Stop 06/02/16 at 21: 44; Status DC Fentanyl Citrate (Sublimaze Inj) 25 mcg Q1H PRN IV PUSH BREAKTHROUGH PAIN; Start 12/31/15 at 15:00; Stop 03/06/16 at 10:03; Status DC Water (Free Water) 200 ml Q8H G-TUBE Last administered on 01/01/16at 17:55; Start 12/31/15 at 18:00; Stop 01/02/16 at 09:56; Status DC Sodium Chloride (Sodium Chloride) 1 gm BID TUBE Last administered on 01/03/16at 07:39; Start 12/31/15 at 21:00; Stop 01/03/16 at 09:08; Status DC Miscellaneous Information Hold Anticoagulation after midni... ONCE ONCE OTHER ; Start 01/01/16 at 10:15; Stop 01/01/16 at 10:29; Status DC Sodium Chloride (NS 1000 ml Inj) 1,000 ml @ 50 mls/hr Q20H IV Last administered on 01/02/16at 12:26; Start 01/01/16 at 18:00; Stop 01/03/16 at 10:07 ; Status DC Midazolam HCl (Versed Inj) 5 mg STK-MED ONCE .ROUTE ; Start 01/02/16 at 12:47; Stop 01/02/16 at 12:48; Status DC Vecuronium [place] (Norcuron 10 Mg Inj) 10 mg STK-MED ONCE .ROUTE ; Start at 12:47; Stop 01/02/16 at 12:48; Status DC Fentanyl Citrate (Sublimaze Inj) 250 mcg ONCE ONCE IV PUSH Last administered on 01/02/16at 15:00; Start 01/02/16 at 15:00; Stop 01/02/16 at 15:01; Status DC Midazolam HCl (Versed Inj) 10 mg ONCE ONCE IV PUSH Last administered on at 15:00; Start 01/02/16 at 15:00; Stop 01/02/16 at 15:01; Status DC Rocuronium [place] (Zemuron Inj) 100 mg BOLUS ONCE IV Last administered on at 15:00; Start 01/02/16 at 15:00; Stop 01/02/16 at 15:01; Status DC Ketamine HCl (Ketalar Inj) 500 mg STK-MED ONCE .ROUTE ; Start 01/02/16 at 14:30 ; Stop 01/02/16 at 14:31; Status DC Propofol 230 mg 230 mg STK-MED ONCE IV ; Start 01/02/16 at 16:51; Stop 01/02/16 at 16:52; Status DC Sodium Chloride (NS 1000 ml Inj) 1,000 ml @ 0 mls/hr Q0M IV ; Start 01/03/16 at 10:15; Stop 01/17/16 at 17:30; Status DC Ranitidine HCl (Zantac Liq) 150 mg Q12HR PO Last administered on 01/17/16at 07: 39; Start 01/04/16 at 09:00; Stop 01/17/16 at 15:23; Status DC Enoxaparin Sodium 90 mg 90 mg Q12HR SQ Last administered on 01/11/16at 10:01; Start 01/04/16 at 09:00; Stop 01/11/16 at 12:35; Status DC Sodium Chloride (NS 500 ml Inj) 500 ml @ 0 mls/hr BOLUS ONCE IV Last administered on 01/03/16at 22:57; Start 01/03/16 at 23:00; Stop 01/03/16 at 23:01 ; Status DC Insulin Aspart (NovoLOG SUPPLEMENTAL SCALE) 1 Q6HR SQ Last administered on at 12:00; Start 01/04/16 at 12:00; Stop 03/24/16 at 13:58; Status DC Potassium Chloride (KCl 40 Meq/30 ml Liq) 40 meq Q4H NG Last administered on at 16:21; Start 01/04/16 at 13:00; Stop 01/04/16 at 17:01; Status DC Warfarin Sodium 5 mg 5 mg DAILY@1600 PO Last administered on 01/09/16at 17:21; Start 01/04/16 at 16:00; Stop 01/10/16 at 10:06; Status DC Pharmacy Profile Note (Coumadin Consult Pharmacy) 0 ml @ 0 mls/hr UNSCH XX ; Start 01/04/16 at 12:30; Stop 04/20/16 at 12:04; Status DC Insulin Detemir (Levemir Inj) 10 units Q12HR SQ Last administered on 01/05/16at 08:00; Start 01/04/16 at 21:00; Stop 01/05/16 at 08:42; Status DC Insulin Detemir (Levemir Inj) 5 units NOW ONCE SQ Last administered on at 13:28; Start 01/04/16 at 12:45; Stop 01/04/16 at 12:46; Status DC Albuterol/ Ipratropium (Duoneb Neb) 1 ampule Q4HR NEB PRN NEB dyspnea Last administered on 04/19/16at 02:24; Start 01/07/16 at 08:15; Stop 04/25/16 at 18:54 ; Status DC Warfarin Sodium (Coumadin) 7.5 mg ONCE ONCE PO Last administered on 01/07/16at 16:40; Start 01/07/16 at 16:00; Stop 01/07/16 at 16:01; Status DC Nystatin (Mycostatin Powder) 1 applic Q12HR TOPICAL Last administered on t 07:54; Start 01/08/16 at 21:00 Ipratropium [place] (Atrovent Neb) 0.5 mg TID NEB NEB Last administered on 02/20at 13:17; Start 01/08/16 at 20:00; Stop 02/21/16 at 17:52; Status DC Warfarin Sodium (Coumadin) 5 mg DAILY@1600 PO Last administered on 01/11/16at 14 :26; Start 01/11/16 at 16:00; Stop 01/12/16 at 09:45; Status DC Warfarin Sodium (Coumadin) 6 mg ONCE PO Last administered on 01/10/16at 17:10; Start 01/10/16 at 16:00; Stop 01/10/16 at 21:00; Status DC Metoprolol Tartrate (Lopressor) 50 mg Q12HR GT Last administered on 01/11/16at 10:02; Start 01/10/16 at 11:00; Stop 01/11/16 at 12:30; Status DC Metoprolol Tartrate (Lopressor) 50 mg TID GT Last administered on 01/14/16at 08: 24; Start 01/11/16 at 13:00; Stop 01/14/16 at 08:28; Status DC Insulin Detemir (Levemir Inj) 10 units HS SQ Last administered on 01/11/16at 22: 23; Start 01/11/16 at 21:00; Stop 01/12/16 at 11:47; Status DC Warfarin Sodium (Coumadin) 4 mg DAILY@16 PO ; Start 01/12/16 at 16:00; Stop at 16:00; Status DC Insulin Detemir (Levemir Inj) 20 units HS SQ Last administered on 01/13/16at 20: 26; Start 01/12/16 at 21:00; Stop 01/14/16 at 08:28; Status DC Warfarin Sodium (Coumadin) 2 mg DAILY@16 PO Last administered on 01/13/16at 17: 05; Start 01/12/16 at 16:00; Stop 01/14/16 at 11:23; Status DC Insulin Detemir (Levemir Inj) 22 units HS SQ Last administered on 01/14/16at 21: 37; Start 01/14/16 at 21:00; Stop 01/15/16 at 10:06; Status DC Metoprolol Tartrate (Lopressor) 75 mg TID GT Last administered on 03/10/16at 17: 43; Start 01/14/16 at 09:00; Stop 03/10/16 at 21:13; Status DC Miscellaneous (Pill Splitter) 1 ea UNSCH PRN OTHER SEE LABEL COMMENTS; Start at 08:30 Warfarin Sodium (Coumadin) 4 mg DAILY@1600 PO Last administered on 01/21/16at 16: 51; Start 01/14/16 at 16:00; Stop 01/23/16 at 09:29; Status DC Patient Medication Teaching (Coumadin Booklet) 1 ONCE ONCE XX ; Start 01/14/16 at 16:00; Stop 01/14/16 at 16:01; Status DC Insulin Detemir (Levemir Inj) 24 units HS SQ Last administered on 03/04/16at 21: 09; Start 01/15/16 at 21:00; Stop 03/05/16 at 11:17; Status DC Citalopram Hydrobromide (CeleXA) 20 mg DAILY PEG Last administered on at 08:01; Start 01/16/16 at 09:00; Stop 01/16/16 at 09:41; Status DC Sennosides (Senna Liq) 8.8 mg BID TUBE Last administered on 02/20/16at 08:32; Start 01/15/16 at 21:00; Stop 02/20/16 at 16:13; Status DC Gadodiamide 18 ml 18 ml STK-MED ONCE IV ; Start 01/16/16 at 20:40; Stop at 20:41; Status DC Sodium Chloride (NS 1000 ml Inj) 1,000 ml @ 125 mls/hr Q8H IV Last administered on 01/17/16at 15:11; Start 01/17/16 at 15:00; Stop 01/17/16 at 17:31 ; Status DC Ranitidine HCl 150 mg 150 mg Q24H PO Last administered on 07/28/16t 08:54; Start 01/18/16 at 09:00; Stop 1/10/17 at 10:05; Status DC Sodium Chloride 1,000 ml @ 75 mls/hr [id number] IV Last administered on at 05:22; Start 01/17/16 at 18:00; Stop 01/18/16 at 09:28; Status DC Sodium Chloride/ Sterile Water (Sodium Chloride 23.4% Inj/Sterile Water For Inj ) 1,009.625 ml @ 60 mls/hr [id number] IV Last administered on 01/21/16at 22:46; Start 01/18/16 at 11:00; Stop 01/22/16 at 10:09; Status DC Potassium Chloride (KCl) 40 meq ONCE ONCE PO ; Start 01/18/16 at 09:30; Stop at 09:31; Status DC Potassium Chloride (KCl 40 Meq/30 ml Liq) 40 meq ONCE ONCE TUBE Last administered on 01/18/16at 11:08; Start 01/18/16 at 11:00; Stop 01/18/16 at 11:01 ; Status DC Water (Free Water) 300 ml Q4HR TUBE Last administered on 01/19/16at 08:00; Start 01/18/16 at 12:00; Stop 01/19/16 at 10:43; Status DC Water (Free Water) 400 ml Q4HR TUBE Last administered on 04/16/16at 04:00; Start 01/19/16 at 12:00; Stop 04/16/16 at 09:09; Status DC Potassium Chloride (KCl 40 Meq/30 ml Liq) 40 meq ONCE ONCE NG Last administered on 01/19/16at 11:41; Start 01/19/16 at 11:00; Stop 01/19/16 at 11:01; Status DC Potassium Chloride 60 meq 60 meq ONCE ONCE PO/TUBE Last administered on at 13:30; Start 01/21/16 at 11:15; Stop 01/21/16 at 11:27; Status DC Sodium Chloride (1/2 NS 1000 ml Inj) 1,000 ml @ 30 mls/hr Q24H IV Last administered on 02/06/16at 11:26; Start 01/22/16 at 11:00; Stop 02/07/16 at 14:49 ; Status DC Warfarin Sodium (Coumadin) 3 mg DAILY@16 PO Last administered on 01/23/16at 17:19 ; Start 01/23/16 at 16:00; Stop 01/24/16 at 14:05; Status DC Warfarin Sodium (Coumadin) 3 mg DAILY@16 PO Last administered on 01/25/16at 15:59 ; Start 01/25/16 at 16:00; Stop 01/26/16 at 15:04; Status DC Warfarin Sodium (Coumadin) 4 mg ONCE@1600 ONCE PO Last administered on at 16:55; Start 01/24/16 at 16:00; Stop 01/24/16 at 16:01; Status DC Warfarin Sodium (Coumadin) 3 mg DAILY@16 PO ; Start 01/27/16 at 16:00; Stop at 16:00; Status DC Warfarin Sodium (Coumadin) 4 mg ONCE@1600 ONCE PO Last administered on at 16:52; Start 01/26/16 at 16:00; Stop 01/26/16 at 16:01; Status DC Potassium Chloride (KCl 40 Meq/30 ml Liq) 80 meq ONCE ONCE PO Last administered on 01/27/16at 07:45; Start 01/27/16 at 07:45; Stop 01/27/16 at 08:10; Status DC Warfarin Sodium (Coumadin) 4 mg DAILY@16 PO Last administered on 02/02/16at 17: 22; Start 01/27/16 at 16:00; Stop 02/03/16 at 11:37; Status DC Acetic Acid (Acetic Acid 0.25% Irr Btl) 10 ml Q8HR IRRIGATION Last administered on 02/05/16at 06:00; Start 01/28/16 at 22:00; Stop 02/05/16 at 15:51 ; Status DC Warfarin Sodium 3 mg 3 mg DAILY@1600 PO Last administered on 02/11/16at 17:34; Start 02/03/16 at 16:00; Stop 02/12/16 at 12:45; Status DC Ceftriaxone Sodium/Sodium Chloride (Rocephin Inj/NS Inj) 100 ml @ 200 mls/hr Q24H IV Last administered on 02/10/16at 05:23; Start 02/05/16 at 06:30; Stop at 14:32; Status DC Acetic Acid (Acetic Acid 0.25% Irr Btl) 10 ml Q8HR IRRIGATION ; Start 02/05/16 at 16:00; Status Cancel Acetic Acid (Acetic Acid 0.25% Irr Btl) 10 ml Q8HR IRRIGATION Last administered on 11/15/16t 05:37; Start 02/05/16 at 16:00 Lactobacillus Acidophilus (Lactinex) 1 tab Q12HR PO Last administered on at 08:25; Start 02/10/16 at 21:00; Stop 02/12/16 at 16:05; Status DC Warfarin Sodium (Coumadin) 4 mg DAILY@1600 PO Last administered on 02/14/16at 15 :56; Start 02/12/16 at 16:00; Stop 02/15/16 at 10:17; Status DC Paroxetine HCl (Paxil Liq) 20 mg DAILY PEG Last administered on 02/25/16at 07:33 ; Start 02/16/16 at 09:00; Stop 02/25/16 at 10:36; Status DC Warfarin Sodium (Coumadin) 3 mg DAILY@1600 PO Last administered on 02/19/16at 16: 42; Start 02/15/16 at 16:00; Stop 02/20/16 at 08:50; Status DC Warfarin Sodium (Coumadin) 4 mg DAILY@16 PO Last administered on 02/21/16at 15:54 ; Start 02/20/16 at 16:00; Stop 02/22/16 at 08:46; Status DC Sennosides (Senna Liq) 8.8 mg DAILY TUBE Last administered on 05/26/16at 08:14 ; Start 02/21/16 at 09:00; Stop 05/27/16 at 11:51; Status DC Albuterol Sulfate (Albuterol Neb) 2.5 mg QID NEB INH Last administered on at 19:51; Start 02/21/16 at 20:00; Stop 02/25/16 at 20:00; Status DC Acetylcysteine (Mucomyst 10% Neb) 1 ml QID NEB NEB Last administered on at 16:32; Start 02/21/16 at 20:00; Stop 02/23/16 at 16:01; Status DC Warfarin Sodium (Coumadin) 3 mg DAILY@16 PO Last administered on 02/22/16at 15:59 ; Start 02/22/16 at 16:00; Stop 02/23/16 at 08:56; Status DC Warfarin Sodium (Coumadin) 3 mg DAILY@16 PO Last administered on 02/28/16at 16: 17; Start 02/24/16 at 16:00; Stop 02/29/16 at 10:04; Status DC Warfarin Sodium (Coumadin) 2 mg ONCE PO Last administered on 02/23/16at 16:22; Start 02/23/16 at 16:00; Stop 02/23/16 at 21:00; Status DC Paroxetine HCl (Paxil Liq) 20 mg DAILY@1900 PEG Last administered on 03/08/16at 18:11; Start 02/26/16 at 19:00; Stop 03/09/16 at 11:31; Status DC Warfarin Sodium (Coumadin) 3 mg DAILY@16 PO Last administered on 03/06/16at 16: 22; Start 03/01/16 at 16:00; Stop 03/09/16 at 10:30; Status DC Warfarin Sodium (Coumadin) 1 mg ONCE PO Last administered on 02/29/16at 17:28; Start 02/29/16 at 16:00; Stop 02/29/16 at 21:00; Status DC Insulin Detemir (Levemir Inj) 27 units HS SQ Last administered on 03/05/16at 20: 25; Start 03/05/16 at 21:00; Stop 03/06/16 at 10:03; Status DC Patient Medication Teaching (Coumadin Booklet) 1 ONCE ONCE XX Last administered on 03/05/16at 16:00; Start 03/05/16 at 16:00; Stop 03/05/16 at 16:01 ; Status DC Insulin Detemir (Levemir Inj) 30 units HS SQ Last administered on 03/21/16at 22: 32; Start 03/06/16 at 21:00; Stop 03/22/16 at 14:48; Status DC Trimethoprim/ Sulfamethoxazole (Bactrim 800-160 Mg/20 ml Liq) 20 ml Q12HR PO Last administered on 03/14/16at 08:01; Start 03/07/16 at 11:15; Stop 03/14/16 at 11:14; Status DC Lorazepam (Ativan Inj) 0.5 mg Q4H PRN IV PUSH seizures or agitation; Start at 23:00 Metronidazole (Flagyl) 500 mg Q8H PO Last administered on 03/14/16at 15:51; Start 03/08/16 at 17:00; Stop 03/14/16 at 23:00; Status DC Warfarin Sodium (Coumadin) 2 mg DAILY@16 PO Last administered on 03/09/16at 17: 20; Start 03/09/16 at 16:00; Stop 03/10/16 at 10:33; Status DC Paroxetine HCl (Paxil) 20 mg DAILY@1900 PEG Last administered on 03/11/16at 17: 55; Start 03/09/16 at 19:00; Stop 03/12/16 at 08:31; Status DC Warfarin Sodium 3 mg 3 mg DAILY@16 PO Last administered on 04/12/16at 15:28; Start 03/10/16 at 16:00; Stop 04/12/16 at 16:39; Status DC Pharmacy Profile Note 0 ml @ 0 mls/hr UNSCH OTHER ; Start 03/10/16 at 14:15; Stop 03/18/16 at 11:33; Status DC Vancomycin HCl/ Sodium Chloride (Vancomycin Inj/ NS 500 ml Inj) 530 ml @ 265 mls/hr Q12H IV Last administered on 03/17/16at 16:26; Start 03/10/16 at 16:00; Stop 03/17/16 at 23:00; Status DC Miscellaneous Information SPECIFIC LAB TO BE ELISA... ONCE ONCE XX Last administered on 03/12/16at 04:45; Start 03/12/16 at 03:45; Stop 03/12/16 at 03:46 ; Status DC Metoprolol Tartrate (Lopressor) 75 mg Q8HR PO Last administered on 04/02/16at 13 :13; Start 03/10/16 at 22:00; Stop 04/02/16 at 17:31; Status DC Paroxetine HCl (Paxil Liq) 20 mg DAILY@1900 PEG Last administered on 11/14/16t 17:50; Start 03/12/16 at 19:00 Warfarin Sodium (Coumadin) 1 mg ONCE PO Last administered on 03/21/16at 16:24; Start 03/21/16 at 16:00; Stop 03/21/16 at 21:00; Status DC Warfarin Sodium (Coumadin) 1 mg ONCE PO Last administered on 03/22/16at 17:46; Start 03/22/16 at 16:00; Stop 03/22/16 at 21:00; Status DC Insulin Detemir (Levemir Inj) 32 units HS SQ Last administered on 03/22/16at 20: 18; Start 03/22/16 at 21:00; Stop 03/23/16 at 13:35; Status DC Diltiazem HCl (Cardizem Cd) 120 mg DAILY PO Last administered on 04/14/16at 07: 43; Start 03/22/16 at 16:00; Stop 04/14/16 at 14:39; Status DC Hyoscyamine Sulfate (Levsin Liq) 0.125 mg Q4H PRN PEG INCREASED SECRETIONS Last administered on 04/10/16at 08:05; Start 03/22/16 at 15:15; Stop 04/11/16 at 10:24; Status DC Warfarin Sodium (Coumadin) 2 mg ONCE ONCE PO Last administered on 03/23/16at 17: 26; Start 03/23/16 at 16:00; Stop 03/23/16 at 16:01; Status DC Insulin Detemir (Levemir Inj) 34 units HS SQ Last administered on 03/23/16at 20: 01; Start 03/23/16 at 21:00; Stop 03/24/16 at 13:53; Status DC Insulin Detemir (Levemir Inj) 35 units HS SQ Last administered on 11/14/16t 21: 19; Start 03/24/16 at 21:00 Insulin Aspart (NovoLOG SUPPLEMENTAL SCALE) 1 ACHS SLIDING SCALE SQ Last administered on 04/16/16at 22:27; Start 03/24/16 at 16:00; Stop 04/19/16 at 17:19 ; Status DC Warfarin Sodium (Coumadin) 1 mg ONCE ONCE PO Last administered on 03/30/16at 16 :59; Start 03/30/16 at 16:00; Stop 03/30/16 at 16:01; Status DC Potassium Chloride (KCl 40 Meq/30 ml Liq) 40 meq ONCE ONCE NG Last administered on 03/31/16at 21:28; Start 03/31/16 at 18:30; Stop 03/31/16 at 18:31 ; Status DC Potassium Bicarb/ Potassium Chloride (K-Lyte Cl Eff) 25 meq ONCE ONCE PEG Last administered on 04/02/16at 12:01; Start 04/02/16 at 13:00; Stop 04/02/16 at 13:01; Status DC Metoprolol Tartrate (Lopressor) 75 mg BID PO Last administered on 05/28/16at 21: 03; Start 04/02/16 at 21:00; Stop 05/29/16 at 11:21; Status DC Potassium Bicarb/ Potassium Chloride (K-Lyte Cl Eff) 25 meq ONCE ONCE PEG Last administered on 04/04/16at 14:40; Start 04/04/16 at 12:30; Stop 04/04/16 at 12:31; Status DC Linezolid (Zyvox) 600 mg Q12HR PO Last administered on 04/16/16at 09:11; Start 04/05/16 at 15:00; Stop 04/16/16 at 12:00; Status DC Artificial Tears (Lacrilube Opht Oint) 1 applic Q12HR EACH EYE Last administered on 09/04/16 21:00; Start 04/10/16 at 11:00; Stop 09/05/16 at 14:38 ; Status DC Hyoscyamine Sulfate (Levsin) 0.25 mg Q4H PRN G-TUBE INCREASED SECRETIONS Last administered on 08/31/16 05:02; Start 04/11/16 at 10:30 Diatrizoate Meglum/ Diatrizoate Sod ( Gastroview Liq) 18 ml ONCE ONCE PO Last administered on 04/12/16at 16:45; Start 04/12/16 at 16:15; Stop 04/12/16 at 16:16; Status DC Warfarin Sodium (Coumadin) 3 mg DAILY@16 PO ; Start 04/13/16 at 16:00; Stop 05/27/16 at 11:51; Status DC Iohexol (Omnipaque 350 Inj) 98 ml STK-MED ONCE IV Last administered on at 21:01; Start 04/12/16 at 21:01; Stop 04/12/16 at 21:02; Status DC Diltiazem HCl (Cardizem Cd) 180 mg DAILY PO ; Start 04/15/16 at 09:00; Stop at 08:50; Status DC Ondansetron HCl (Zofran Inj) 4 mg Q6HR PRN IV PUSH nausea/vomiting Last administered on 08/10/16 10:16; Start 04/14/16 at 19:45 Diltiazem HCl 60 mg 60 mg QID PO Last administered on 04/25/16at 17:26; Start at 13:00; Stop 04/25/16 at 19:06; Status DC Sodium Chloride 500 ml @ 500 mls/hr BOLUS ONCE IV Last administered on at 09:15; Start 04/15/16 at 09:15; Stop 04/15/16 at 10:14; Status DC Potassium Chloride/Dextrose/ Sodium Chloride (KCl Inj/D5W-NS 1000 ml Inj) 1,005 ml @ 100 mls/hr Q10H3M IV Last administered on 04/15/16at 21:03; Start at 11:00; Stop 04/16/16 at 09:09; Status DC Enoxaparin Sodium (Lovenox Inj) 90 mg Q12H SQ Last administered on 04/16/16at 21 :12; Start 04/16/16 at 09:00; Stop 04/17/16 at 10:37; Status DC Water 200 ml 200 ml Q4HR TUBE Last administered on 11/15/16 07:54; Start 04/16 at 12:00 Sodium Chloride 1,000 ml @ 84 mls/hr [id number] IV Last administered on at 08:38; Start 04/16/16 at 10:00; Stop 04/20/16 at 12:04; Status DC Ceftriaxone Sodium/Sodium Chloride (Rocephin Inj/NS Inj) 100 ml @ 200 mls/hr Q24H IV Last administered on 05/02/16at 13:19; Start 04/16/16 at 12:00; Stop 05/03/16 at 12:06; Status DC Acetaminophen/ Hydrocodone Bitart ([place] 5-325 Mg) 1 tab Q6HR PEG Last administered on 09/17/16 06:42; Start 04/18/16 at 18:00; Stop 09/17/16 at 09:17 ; Status DC Lactulose (Lactulose Liq) 30 ml NOW ONCE PEG Last administered on 04/19/16at 17 :21; Start 04/19/16 at 17:30; Stop 04/19/16 at 17:31; Status DC Lactulose (Lactulose Liq) 30 ml DAILY PEG Last administered on 05/26/16at 08:14 ; Start 04/20/16 at 09:00; Stop 05/27/16 at 11:39; Status DC Potassium Bicarb/ Potassium Chloride (K-Lyte Cl Eff) 50 meq ONCE ONCE PO Last administered on 04/20/16at 05:52; Start 04/20/16 at 05:45; Stop 04/20/16 at 05:46; Status DC Furosemide (Lasix Inj) 20 mg ONCE ONCE IV PUSH Last administered on 04/20/16at 17:35; Start 04/20/16 at 12:00; Stop 04/20/16 at 12:06; Status DC Insulin Aspart (NovoLOG SUPPLEMENTAL SCALE) 1 ACHS SLIDING SCALE SQ Last administered on 06/02/16at 12:10; Start 04/20/16 at 16:00; Stop 06/02/16 at 21: 44; Status DC Dextrose (D50w (Vial) Inj) 25 ml UNSCH PRN IV HYPOGLYCEMIA-SEE COMMENTS; Start 04/20/16 at 12:00 Glucagon (Glucagon Inj) 1 mg UNSCH PRN IM/SQ HYPOGLYCEMIA-SEE COMMENTS; Start 04/20/16 at 12:00 Lactobacillus Acidophilus (Lactinex) 1 tab Q12HR PEG Last administered on 06/06at 21:34; Start 04/22/16 at 09:00; Stop 06/07/16 at 09:32; Status DC Furosemide (Lasix Inj) 20 mg Q12H IV PUSH Last administered on 04/24/16at 08:52 ; Start 04/22/16 at 09:00; Stop 04/24/16 at 09:25; Status DC Potassium Bicarb/ Potassium Chloride (K-Lyte Cl Eff) 25 meq Q12HR TUBE Last administered on 05/27/16at 08:17; Start 04/22/16 at 09:00; Stop 05/27/16 at 11:51 ; Status DC Albumin Human (Albumin 25% Inj) 12.5 gm Q12H IV Last administered on 04/24/16at 08:46; Start 04/22/16 at 09:00; Stop 04/24/16 at 09:25; Status DC Furosemide (Lasix Inj) 20 mg DAILY IV PUSH Last administered on 05/08/16at 09: 01; Start 04/25/16 at 09:00; Stop 05/08/16 at 11:06; Status DC Albumin Human (Albumin 25% Inj) 12.5 gm DAILY IV Last administered on at 09:02; Start 04/25/16 at 10:00; Stop 05/08/16 at 11:06; Status DC Furosemide (Lasix Inj) 40 mg ONCE ONCE IV PUSH Last administered on 04/25/16at 18:15; Start 04/25/16 at 18:15; Stop 04/25/16 at 18:16; Status DC Albuterol/ Ipratropium (Duoneb Neb) 1 ampule Q6HR NEB NEB Last administered on 04/27/16at 15:52; Start 04/25/16 at 18:30; Stop 04/27/16 at 19:45; Status DC Ipratropium [place] (Atrovent Neb) 0.5 mg Q6HR NEB NEB Last administered on at 16:51; Start 04/25/16 at 22:00; Stop 04/27/16 at 16:44; Status DC Levalbuterol HCl (Xopenex Neb) 0.31 mg Q4HR NEB NEB Last administered on at 23:48; Start 04/25/16 at 20:00; Stop 04/27/16 at 16:43; Status DC Levalbuterol HCl (Xopenex Neb) 0.31 mg Q2HR NEB PRN NEB SHORTNESS OF BREATH; Start 04/25/16 at 18:45; Stop 04/28/16 at 10:50; Status DC Diltiazem HCl (Cardizem) 90 mg QID PEG Last administered on 07/17/16at 09:27; Start 04/25/16 at 21:00; Stop 07/17/16 at 17:52; Status DC Diltiazem HCl (Cardizem) 30 mg NOW ONCE PEG Last administered on 04/25/16at 21: 36; Start 04/25/16 at 19:15; Stop 04/25/16 at 19:16; Status DC Levalbuterol HCl (Xopenex Neb) 0.31 mg Q8HR NEB NEB ; Start 04/28/16 at 00:00; Stop 04/28/16 at 10:50; Status DC Levalbuterol HCl (Xopenex Neb) 0.63 mg Q4HR NEB PRN NEB SHORTNESS OF BREATH Last administered on 05/04/16at 15:26; Start 04/28/16 at 11:00; Stop 05/04/16 at 00:51; Status DC Levalbuterol HCl (Xopenex Neb) 0.63 mg Q8HR NEB NEB Last administered on 05/04at 00:07; Start 04/28/16 at 16:00; Stop 05/04/16 at 00:50; Status DC Polyethylene Glycol/ Electrolytes 4000 ml 4,000 ml ONCE ONCE PO Last administered on 05/05/16at 08:10; Start 05/05/16 at 08:45; Stop 05/05/16 at 08 :46; Status DC Cefazolin Sodium/ Dextrose 50 ml @ 100 mls/hr ONCE ONCE IV ; Start 05/06/16 at 14:00; Stop 05/06/16 at 14:29; Status DC Metronidazole 100 ml @ 100 mls/hr ONCE ONCE IV Last administered on at 14:00; Start 05/06/16 at 14:00; Stop 05/06/16 at 14:59; Status DC Ceftriaxone Sodium/Sodium Chloride (Rocephin Inj/NS Inj) 100 ml @ 200 mls/hr Q24H IV Last administered on 06/09/16at 12:36; Start 05/03/16 at 12:00; Stop 06/10/16 at 12:48; Status DC Levalbuterol HCl (Xopenex Neb) 0.63 mg Q8HR NEB NEB Last administered on 05/05at 08:00; Start 05/04/16 at 00:49; Stop 05/05/16 at 08:07; Status DC Levalbuterol HCl (Xopenex Neb) 0.63 mg Q4HR NEB PRN NEB SHORTNESS OF BREATH Last administered on 11/13/16t 10:36; Start 05/05/16 at 12:00 Levalbuterol HCl (Xopenex Neb) 0.63 mg Q8HR NEB NEB Last administered on 05/08at 23:56; Start 05/05/16 at 08:15; Stop 05/09/16 at 08:15; Status DC Potassium Bicarb/ Potassium Chloride (K-Lyte Cl Eff) 25 meq DAILY TUBE Last administered on 11/15/16 07:53; Start 05/28/16 at 09:00 Aspirin (Aspirin) 325 mg DAILY TUBE Last administered on 11/15/16 07:53; Start 05/27/16 at 11:40 Docusate Sodium (Colace Liq) 100 mg DAILY PRN PO constipation Last administered on 08/16/16 21:09; Start 05/27/16 at 11:45; Stop 08/31/16 at 09:00 ; Status DC Metoprolol Tartrate (Lopressor) 50 mg BID PO Last administered on 08/23/16 09: 03; Start 05/29/16 at 21:00; Stop 08/23/16 at 15:33; Status DC Acetaminophen/ Hydrocodone Bitart ([place] 5-325 Mg) 1 tab Q6H PRN TUBE BREAKTHROUGH PAIN Last administered on 08/02/16 15:11; Start 06/03/16 at 03:00 ; Stop 09/17/16 at 14:33; Status DC Insulin Aspart (NovoLOG SUPPLEMENTAL SCALE) 1 ACHS SLIDING SCALE SQ Last administered on 06/06/16at 21:35; Start 06/03/16 at 07:00; Stop 06/07/16 at 12 :24; Status DC Lactobacillus Acidophilus (Lactinex) 1 tab TID PEG Last administered on 09:13; Start 06/07/16 at 13:00; Stop 10/13/16 at 12:08; Status DC Insulin Aspart 1 1 AC BREAKFAST SQ Last administered on 11/05/16 07:00; Start 06/08/16 at 07:00 Ceftriaxone Sodium/Sodium Chloride (Rocephin Inj/NS Inj) 100 ml @ 200 mls/hr Q24H IV Last administered on 07/28/16 12:19; Start 06/10/16 at 12:00; Stop 07/29/16 at 13:30; Status DC Heparin Sodium (Porcine) (Heparin Inj) 5,000 units Q12HR SQ Last administered on 11/22/16at 00:58; Start 06/10/16 at 14:15; Stop 06/11/16 at 06:21; Status DC Heparin Sodium (Porcine) (Heparin Inj) 5,000 units Q8HR SQ Last administered on 11/15/16 05:36; Start 06/11/16 at 14:00 Diltiazem HCl (Cardizem) 30 mg QID PEG Last administered on 08/16/16 08:31; Start 07/17/16 at 18:00; Stop 08/16/16 at 12:06; Status DC Bacitracin 1 applic 1 applic BID TOP Last administered on 11/15/16 07:54; Start 07/20/16 at 10:00 Lactated Ringer's 1,000 ml @ 30 mls/hr Q24H IV ; Start 07/21/16 at 17:45; Stop 08/14/16 at 12:08; Status DC Sodium Chloride (NS 500 ml Inj) 500 ml @ 30 mls/hr [id number] IV ; Start 07/21/16 at 17:45; Stop 07/22/16 at 17:44; Status DC Insulin Human Regular (NovoLIN R INJ) See Protocol Table ... UNSCH X1 PRN SQ SEE PROTOCOL; Start 07/21/16 at 17:45; Stop 07/22/16 at 17:44; Status DC Metoprolol Tartrate (Lopressor) 25 mg UNSCH X1 PRN PO SEE LABEL COMMENTS; Start 07/21/16 at 17:45; Stop 07/22/16 at 17:44; Status DC Lidocaine/ Epinephrine (Xylocaine-Epi 1%-1:100,000 Inj) 40 ml STK-MED ONCE .ROUTE Last administered on 07/22/16 10:56; Start 07/22/16 at 10:04; Stop at 10:05; Status DC Ketamine HCl (Ketalar Inj) 500 mg STK-MED ONCE .ROUTE ; Start 07/22/16 at 10:50; Stop 07/22/16 at 10:51; Status DC Propofol 600 mg 600 mg STK-MED ONCE IV ; Start 07/22/16 at 12:00; Stop 07/23/16 at 14:36; Status DC Dextrose 1,000 ml @ 40 mls/hr Q24H ONCE IV Last administered on 07/28/16 14:33 ; Start 07/28/16 at 14:00; Stop 07/29/16 at 13:59; Status DC Ampicillin Sodium/ Sulbactam Sodium/ Sodium Chloride (Unasyn Inj/NS Inj) 100 ml @ 200 mls/hr Q6H IV Last administered on 08/01/16 12:30; Start 07/29/16 at 14: 00; Stop 08/01/16 at 14:13; Status DC Ondansetron HCl 4 mg 4 mg ONCE ONCE IV PUSH Last administered on 07/30/16 02: 46; Start 07/30/16 at 00:30; Stop 07/30/16 at 00:33; Status DC Lactated Ringer's 1,000 ml @ 30 mls/hr Q24H IV ; Start 07/30/16 at 06:00; Stop 08/14/16 at 12:09; Status DC Sodium Chloride (NS 500 ml Inj) 500 ml @ 30 mls/hr [id number] IV ; Start 07/30/16 at 06:00; Stop 07/31/16 at 05:59; Status DC Pantoprazole Sodium (Protonix Inj) 40 mg Q12H IV PUSH Last administered on 11/15 07:53; Start 07/30/16 at 10:15 Propofol 200 mg 200 mg STK-MED ONCE IV ; Start 07/30/16 at 09:41; Stop 07/30/16 at 10:19; Status DC Piperacillin Sod/ Tazobactam Sod (Zosyn 4.5 Gm Premix) 100 ml @ 200 mls/hr Q6H IV Last administered on 08/07/16 09:37; Start 08/01/16 at 16:00; Stop at 16:10; Status DC Linezolid (Zyvox) 600 mg Q12HR PO Last administered on 08/22/16 09:10; Start at 21:00; Stop 08/22/16 at 15:55; Status DC Sodium Chloride ([place]) 1 spray BID NASAL Last administered on 07:54; Start 08/01/16 at 21:00 Metronidazole 500 mg 500 mg Q8H PO Last administered on 08/08/16 08:28; Start 08/07/16 at 16:00; Stop 08/08/16 at 16:10; Status DC Sodium Chloride (NS 1000 ml Inj) 1,000 ml @ 42 mls/hr [id number] IV Last administered on 08/14/16 12:44; Start 08/14/16 at 12:00; Stop 08/15/16 at 10:56 ; Status DC Fentanyl Citrate (fentaNYL INJ) 250 mcg STK-MED ONCE .ROUTE Last administered on 08/14/16 15:36; Start 08/14/16 at 15:36; Stop 08/14/16 at 15:37; Status DC Iohexol (Omnipaque 350 Inj) 30 ml STK-MED ONCE G-TUBE Last administered on 08/14 15:45; Start 08/14/16 at 15:52; Stop 08/14/16 at 15:53; Status DC Diltiazem HCl (Cardizem) 30 mg QID PEG Last administered on 11/15/16 07:53; Start 08/16/16 at 13:00 Polyethylene Glycol (Miralax) 17 gm ONCE ONCE PEG Last administered on 11:32; Start 08/17/16 at 12:00; Stop 08/17/16 at 12:01; Status DC Amoxicillin 500 mg 500 mg Q8HR PO Last administered on 11/15/16 05:36; Start 08/22/16 at 22:00 Cefepime HCl/ Sodium Chloride (Maxipime Inj/NS Inj) 100 ml @ 200 mls/hr Q8H IV Last administered on 09/03/16 10:46; Start 08/23/16 at 16:00; Stop 09/03/16 at 15:02; Status DC Metoprolol Tartrate (Lopressor) 75 mg BID PO Last administered on 09/13/16 08: 42; Start 08/23/16 at 21:00; Stop 09/13/16 at 13:09; Status DC Docusate Sodium (Colace Liq) 100 mg BID PO Last administered on 11/13/16 08:49 ; Start 08/30/16 at 21:00 Sennosides (Senokot) 17.2 mg DAILY PO Last administered on 09/25/16 08:36; Start 08/30/16 at 14:00; Stop 09/25/16 at 16:09; Status DC Lactulose (Lactulose Liq) 30 ml DAILY PO Last administered on 11/13/16 08:48; Start 09/02/16 at 15:30 Artificial Tears (Tears Naturale Opth Soln) 1 drop BID EACH EYE Last administered on 11/15/16 07:54; Start 09/05/16 at 21:00 Midazolam HCl (Versed Inj) 2 mg STK-MED ONCE .ROUTE Last administered on 11:37; Start 09/09/16 at 11:37; Stop 09/09/16 at 11:38; Status DC Fentanyl Citrate (fentaNYL INJ) 100 mcg STK-MED ONCE .ROUTE Last administered on 09/09/16 11:38; Start 09/09/16 at 11:38; Stop 09/09/16 at 11:39; Status DC Iohexol (Omnipaque 350 Inj) 20 ml STK-MED ONCE G-TUBE Last administered on 09/09 11:50; Start 09/09/16 at 11:50; Stop 09/09/16 at 12:15; Status DC Metoprolol Tartrate (Lopressor) 50 mg BID PO Last administered on 11/15/16 07: 53; Start 09/13/16 at 21:00 Acetaminophen/ Hydrocodone Bitart ([place] 5-325 Mg) 1 tab Q6H PEG ; Start at 11:00; Stop 09/17/16 at 14:25; Status DC Acetaminophen/ Hydrocodone Bitart ([place] 5-325 Mg) 1 tab DAILY@1600 PO ; Start 09/17/16 at 16:00; Stop 09/17/16 at 16:00; Status DC Morphine Sulfate (Morphine Inj) 1 mg Q24H PRN IV PUSH dressing change 30 min before Last administered on 10/22/16 02:00; Start 09/17/16 at 14:30 Acetaminophen/ Hydrocodone Bitart ([place] 5-325 Mg) 1 tab DAILY@0000 PO Last administered on 09/17/16 23:43; Start 09/18/16 at 00:00; Stop 09/20/16 at 12:46; Status DC Acetaminophen/ Hydrocodone Bitart ([place] 5-325 Mg) 1 tab Q8H PO Last administered on 10/13/16 13:38; Start 09/20/16 at 13:00; Stop 10/13/16 at 18:29 ; Status DC Ketoconazole (Nizoral 2% Cream) 1 applic Q12HR TOPICAL Last administered on 07:54; Start 09/24/16 at 21:00 Sennosides (Senna Liq) 8.8 mg DAILY@1600 PO Last administered on 11/12/16 16: 45; Start 09/25/16 at 17:00 Sodium Biphosphate/ Sodium Phosphate (Fleets Enema (Adult)) 133 ml UNSCH PRN HI CONSTIPATION; Start 09/25/16 at 16:00 Bisacodyl (Dulcolax Supp) 10 mg DAILY PRN RECTAL CONSTIPATION Last administered on 10/20/16 12:53; Start 09/26/16 at 15:30 Bisacodyl (Dulcolax Supp) 10 mg ONCE ONCE RECTAL Last administered on 16:10; Start 09/26/16 at 15:30; Stop 09/26/16 at 15:31; Status DC Cyclobenzaprine HCl (Flexeril) 5 mg Q8H PO Last administered on 10/13/16 13:37 ; Start 10/13/16 at 12:15; Stop 10/13/16 at 18:27; Status DC Magnesium Hydroxide (Milk Of Magnesia Liq) 30 ml DAILY PRN PO constipation Last administered on 10/20/16 12:54; Start 10/13/16 at 14:30 Acetaminophen/ Hydrocodone Bitart ([place] 5-325 Mg) 1 tab Q6H PRN PO PAIN SCALE 1 TO 10; Start 10/13/16 at 18:30; Stop 10/13/16 at 18:30; Status DC Acetaminophen/ Hydrocodone Bitart ([place] 5-325 Mg) 1 tab Q6H PRN PO PAIN SCALE 1 TO 10 Last administered on 11/07/16 14:03; Start 10/13/16 at 18:45 Cyclobenzaprine HCl (Flexeril) 5 mg HS PRN PO muscle relaxant Last administered on 10/22/16 21:17; Start 10/14/16 at 14:15 Fentanyl Citrate (fentaNYL INJ) 100 mcg STK-MED ONCE .ROUTE ; Start 10/23/16 at 16:51; Stop 10/23/16 at 16:52; Status DC Glycerin (Glycerin Adult Supp) 2 gm ONCE ONCE RECTAL Last administered on 15:29; Start 10/26/16 at 15:00; Stop 10/26/16 at 15:01; Status DC Nitrofurantoin Macrocrystals (Macrobid) 100 mg BIDPC PO Last administered on 09:36; Start 10/26/16 at 15:00; Stop 10/29/16 at 14:59; Status DC Date of Insertion: Oct 12, 2016 A/P Problem List: (1) CVA (cerebral vascular accident) ICD Code: I63.9 Status: Acute (2) A-fib ICD Code: I48.91 Status: Chronic (3) DM (diabetes mellitus) ICD Code: E11.9 Status: Chronic Assessment and Plan 1. 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 Tracks with his eyes. Continue Keppra for seizure prophylaxis. PT/OT signed off as patient is unable to participate. -Need placement. Difficult. Appreciate case management assistance. 2. Clogged PEG tube on 10/14 and 10/23 status post PEG tube change, tube feedings to Glucerna 1.5 at 50 ml per hour. jose r one pack BID. mix with 6 oz of water and flush into feeding tube. 3. Chronic respiratory failure -Secondary to CVA. Status post tracheostomy. Continue pulmonary toilet and bronchodilators as needed. Continue trach care, suctioning. Levsin as needed. -Pulmonary currently following . Appreciate assistance. 4. Atrial fibrillation -Continue rate control with Cardizem and metoprolol. Echocardiogram in November 2015 shows preserved ejection fraction. Coumadin discontinued secondary to bleeding. Rate controlled. Continue aspirin and prophylactic heparin dose. 5. History of non-Hodgkin's lymphoma - Status post brain biopsy on December 13 by neurosurgery. Pathology consistent with acute infarct without evidence of lymphoma. Oncology has signed Off 6. Diabetes mellitus -Hemoglobin A1c is 7. Continue Levemir. Monitor Accu-Cheks and cover with sliding scale insulin. Overall blood sugar continues well controlled. 7. Decubitus ulcer stage IV -Continue wound care, twice-daily dressing changes. Wound care recommendations. Continue pressure relief measures including turning and positioning. Patient's family has declined a diverting colostomy. Previous Wound culture growing Klebsiella. on Augmentin. Status post wide excision of sacral skin and biopsy of the cavity lining with debridement on 07/22/16. ID specialist recommended to continue on Amoxicillin and Cefepime for two months will be until the end of September or first days of October. 8. Gastric ulcer, reflux esophagitis - EGD on 07/30/16 showed gastric ulcers. Appreciate GI recommendations. Continue PPI. H&H stable. 9. UTI pseudomonas aeruginosa treated with abx - Resolved. - Repeat Ucx 08/28/16 negative. 10. Constipation: -Having regular bowel movements. -on lactulose. Monitor. 11. Anemia Hemoglobin 9.4 stable 12: Fever on 11/15/16 -Will do a fever workup. Will get CBC, BMP, blood cultures, chest x-ray, UA. Patient won't does not look infected at all. Will not give antibiotics as there is no infectious source. Vitals are stable. We'll continue monitor closely. Treatment will be based on workup. DVT prophylaxis on Heparin Discharge Planning dc planning to SNF-no funding- SSI pending. Problem Qualifiers (1) DM (diabetes mellitus): Qualified Code: E11.9 - Type 2 diabetes mellitus without complications Patsy Wilkes MD Nov 15, 2016 10:43
[2016-11-15 11:37] LABS: AUTOMATED NEUTROPHIL # 4.7 TH/MM3 (1.8-7.7); BASOPHIL # 0.1 TH/MM3 (0-0.2); EOSINOPHIL # 0.2 TH/MM3 (0-0.4); EOSINOPHIL % 2.9 % (0.0-4.0); HEMATOCRIT 32.9 % (39.0-51.0); LYMPH % 17.3 % (9.0-44.0); LYMPHOCYTE # 1.1 TH/MM3 (1.0-4.8); MEAN CELL VOLUME 74.7 FL (80.0-100.0); MEAN CORPUSCULAR HEMOGLOBIN 22.9 PG (27.0-34.0); MEAN CORPUSCULAR HGB CONC 30.7 % (32.0-36.0); MONO % 7.6 % (0.0-8.0); NEUT % 71.2 % (16.0-70.0); PLATELET COUNT 237 TH/MM3 (150-450); RED CELL DISTRIBUTION WIDTH 19.6 % (11.6-17.2); WHITE BLOOD COUNT 6.5 TH/MM3 (4.0-11.0)
[2016-11-15 11:38] LABS: HEMO FLAGS AUTO DIFF
[2016-11-15 12:09] LABS: BICARBONATE 26.9 MEQ/L (21.0-32.0); POTASSIUM 4.3 MEQ/L (3.5-5.1)
[2016-11-15 12:18] LABS: PLATELET ESTIMATE SMEAR NORMAL (NORMAL); PLATELET MORPHOLOGY NORMAL (NORMAL); SCAN/DIFF AUTO DIFF CONFIRMED
[2016-11-15 14:57] LABS: BACTERIA, URINE FEW /hpf; BLOOD, URINE NEG (NEG); GLUCOSE,URINE NEG (NEG); KETONE, URINE NEG (NEG); NITRITE,URINE NEG (NEG); PH, URINE 5.5 (5.0-8.5); URINE COLOR YELLOW (YELLW/STRAW)
[2016-11-15 15:06] LABS: COMMENT (UR) CATH-CULTURE IND; CULTURE IF INDICATED CATH CULTURE IND
[2016-11-15] MEDS: SENNOSIDES SYRUP 8.8 MG/5 ML CUP PO SCH (15:25)
[2016-11-15] MEDS: PARoxetine HCL SUSP 20 MG/10 ML UDC PEG SCH (17:58)
[2016-11-15] MEDS: INSULIN DETEMIR 100 UNITS/ML VIAL SQ SCH (22:06)
[2016-11-16] VITALS (10 sets, daily range): BP systolic 105–148; BP diastolic 63–80; PULSE 75–101; RESP 18–24; TEMP 96–97.9; O2SAT 93–98
[2016-11-16] MEDS: FREE WATER TUBE SCH ×5 (04:00→20:00)
[2016-11-16] MEDS: AMOXICILLIN (TRIHYDRATE) 500 MG CAP PO SCH ×3 (05:29→21:06)
[2016-11-16] MEDS: HEPARIN SODIUM - SQ 10,000 UNITS/ML VIAL SQ SCH ×3 (05:29→21:06)
[2016-11-16] MEDS: ACETIC ACID 0.25% SOLN 1000 ML IRR BTL IRRIGATION SCH ×2 (05:30→14:00)
[2016-11-16] MEDS: INSULIN ASPART SUPPLEMENTAL SCALE SQ SCH (06:13)
[2016-11-16] MEDS: levETIRAcetam 500 MG/5 ML UDC TUBE SCH ×2 (08:20→21:00)
[2016-11-16] MEDS: LACTULOSE SYRUP 20 GM/30 ML CUP PO SCH (08:21)
[2016-11-16] MEDS: POTASSIUM CHLORIDE 25 MEQ EFFERVESCENT TAB TUBE SCH (08:21)
[2016-11-16] MEDS: DOCUSATE SODIUM 100 MG/10 ML UDC PO SCH ×2 (08:22→21:00)
[2016-11-16] MEDS: DILTIAZEM HCL 30 MG TAB PEG SCH ×4 (08:22→21:06)
[2016-11-16] MEDS: METOPROLOL TARTRATE 50 MG TAB PO SCH ×2 (08:22→21:06)
[2016-11-16] MEDS: ARTIFICIAL TEARS OPTH SOLN 15 ML BTL EACH EYE SCH ×2 (08:23→21:00)
[2016-11-16] MEDS: ASPIRIN 325 MG TAB TUBE SCH (08:23)
[2016-11-16] MEDS: SODIUM CHLORIDE 0.65% NASAL SPRAY 45 ML BTL NASAL SCH ×2 (08:23→21:00)
[2016-11-16] MEDS: NYSTATIN 100,000 U/GM PWD 15 GM BTL TOPICAL SCH ×2 (08:24→21:00)
[2016-11-16] MEDS: KETOCONAZOLE 2% CREAM 15 GM TOPICAL SCH ×2 (08:24→21:00)
[2016-11-16] MEDS: BACITRACIN TOP OINT 15 GM TUBE TOP SCH ×2 (08:24→21:00)
[2016-11-16] MEDS: PANTOPRAZOLE SODIUM 40 MG VIAL IV PUSH SCH ×2 (10:41→21:07)
--- NOTE | 2016-11-16 11:02 | HHI.PR ---
Subjective Remarks f/u for CVA patient continues to be nonverbal. per family members no concerns. mother, aunt, and nurse at bedside. Objective Vitals Vital Signs Date Time Temp Pulse Resp B/P Pulse Ox O2 Delivery O2 Flow Rate FiO2 11/16/16 08:17 115/72 11/16/16 08:04 97 T-piece 6.00 28 11/16/16 08:04 97 T-piece 6.00 28 11/16/16 08:00 96.0 90 23 107/63 93 11/16/16 04:00 97.9 93 18 116/68 98 11/16/16 00:00 97.5 75 20 131/80 97 11/15/16 21:30 82 11/15/16 21:30 T-Piece 6.00 28 11/15/16 20:00 96.3 106 18 131/80 95 11/15/16 18:04 99 T-piece 6.00 28 11/15/16 18:02 99 T-piece 6.00 28 11/15/16 16:00 96.3 84 19 100/64 99 11/15/16 12:00 96.0 80 18 107/75 98 11/15/16 11:00 99 T-piece 28 11/15/16 11:00 99 T-piece 28 I/O 11/15/16 11/15/16 11/15/16 11/16/16 11/16/16 11/16/16 07:00 15:00 23:00 07:00 15:00 23:00 Intake Total 300 ml 1704 ml Output Total 1200 ml 1350 ml 800 ml Balance -1200 ml -1350 ml 300 ml 904 ml Tube Feeding 1304 ml Other 300 ml 400 ml Output Urine Total 1200 ml 1350 ml 800 ml # Bowel Movements 2 3 2 Result Diagram: 11/15/16 1117 11/15/16 1117 Objective Remarks Gen NAD CV RRR. no r//g Resp trach in place with transmitted upper respiratory sounds. abd soft NDNT NEURO patient is awake, but does not follow any commands. unsure if he is tracking, SKIN Posterior Coccyx Wound is dry and clean. No discharge noted. + pinkish discoloration but no erythema. no warm Procedures 01/02/16 PEG placement 01/02/16 tracheostomy 07/22/2016 Wide excision of sacral skin wound, biopsy of the cavity lining and debridement. PEG tube replacement 07/29/16 VAC changes- M-W-F 4/5- GJ tube replacement Medications and IVs Current Medications IV Flush (NS Flush) 2 ml UNSCH PRN IVF FLUSH AFTER USING IV ACCESS Last administered on 09/28/16t 21:18; Start 12/21/15 at 06:00 Ondansetron HCl (Zofran Inj) 4 mg STK-MED ONCE .ROUTE ; Start 12/21/15 at 06:22; Stop 12/21/15 at 06:23; Status DC Ondansetron HCl (Zofran Inj) 4 mg ONCE ONCE IV PUSH Last administered on at 06:43; Start 12/21/15 at 06:30; Stop 12/21/15 at 06:31; Status DC Diltiazem HCl 20 mg 20 mg ONCE ONCE IV Last administered on 12/21/15at 06:42; Start 12/21/15 at 06:30; Stop 12/21/15 at 06:31; Status DC Diltiazem HCl/ Sodium Chloride (Cardizem Inj/NS Inj) 125 ml @ 0 mls/hr TITRATE IV Last administered on 12/21/15at 06:47; Start 12/21/15 at 06:30; Stop 12/21/15 at 13:00; Status DC Acetaminophen (Tylenol) 650 mg ONCE ONCE PO ; Start 12/21/15 at 06:45; Stop 12/20 at 06:46; Status DC Lorazepam (Ativan Inj) 1 mg ONCE ONCE IV PUSH Last administered on 12/21/15at 07 :22; Start 12/21/15 at 07:15; Stop 12/21/15 at 07:16; Status DC Etomidate (Amidate Inj) 40 mg STK-MED ONCE .ROUTE Last administered on at 08:17; Start 12/21/15 at 07:37; Stop 12/21/15 at 07:38; Status DC Succinylcholine Chloride 200 mg 200 mg STK-MED ONCE .ROUTE Last administered on 12/21/15at 08:18; Start 12/21/15 at 07:37; Stop 12/21/15 at 07:38; Status DC Propofol (Diprivan 1000 Mg/100ml Inj) 100 ml @ As Directed STK-MED ONCE .ROUTE Last administered on 12/21/15at 08:19; Start 12/21/15 at 07:46; Stop 12/21/15 at 07:47; Status DC Propofol (Diprivan 1000 Mg/100ml Inj) search Sets for Drip. NOW PRN IV SEDATION Last administered on 12/22/15at 06:25; Start 12/21/15 at 08:30; Stop 12/28 at 15:43; Status DC Gadodiamide (Omniscan Pf Inj) 18 ml STK-MED ONCE IV Last administered on at 10:11; Start 12/21/15 at 10:11; Stop 12/21/15 at 10:12; Status DC Pantoprazole Sodium (Protonix Inj) 40 mg DAILY IV Last administered on at 07:39; Start 12/21/15 at 13:00; Stop 01/03/16 at 10:10; Status DC Albuterol/ Ipratropium (Duoneb Neb) 1 ampule Q6HR NEB INH Last administered on 12/25/15at 07:51; Start 12/21/15 at 13:00; Stop 12/25/15 at 13:00; Status DC Miscellaneous Information 1 [id number] Last administered on 12/21/15at 13:00; Start 12/21/15 at 13:00; Stop 01/12/16 at 11:47; Status DC Chlorhexidine Gluconate (Chlorhexidine 2% Cloth) 3 pack Taper DAILY@04 TOP Last administered on 01/11/16at 04:10; Start 12/22/15 at 04:00; Stop 01/12/16 at 11:47; Status DC Chlorhexidine Gluconate 3 pack 3 pack UNSCH PRN TOP HYGIENIC CARE; Start at 13:00; Stop 01/12/16 at 11:47; Status DC Sodium Chloride (NS 1000 ml Inj) 1,000 ml @ 75 mls/hr [id number] IV Last administered on 12/22/15at 17:00; Start 12/21/15 at 13:00; Stop 12/22/15 at 19:01; Status DC Dextrose (D50w (Vial) Inj) 25 ml UNSCH PRN IV PUSH HYPOGLYCEMIA-SEE COMMENTS; Start 12/21/15 at 13:00; Stop 04/19/16 at 17:19; Status DC Glucagon (Glucagon Inj) 1 mg UNSCH PRN OTHER HYPOGLYCEMIA-SEE COMMENTS; Start 12/21/15 at 13:00; Stop 04/19/16 at 17:19; Status DC Insulin Human Regular (NovoLIN R SUPPLEMENTAL SCALE) 1 Q6H SQ Last administered on 01/04/16at 06:31; Start 12/21/15 at 13:00; Stop 01/04/16 at 10:05 ; Status DC Levetriacetam (Keppra) 500 mg Q12HR PO Last administered on 12/27/15at 09:00; Start 12/21/15 at 13:45; Stop 12/27/15 at 09:44; Status DC Heparin Sodium (Porcine) (Heparin Inj) 5,000 units BID SQ Last administered on 12/22/15at 20:52; Start 12/21/15 at 21:00; Stop 12/23/15 at 08:32; Status DC Warfarin Sodium (Coumadin) 7.5 mg ONCE ONCE PO Last administered on 12/21/15at 21:43; Start 12/21/15 at 21:00; Stop 12/21/15 at 21:01; Status DC Warfarin Sodium (Coumadin) 5 mg DAILY@16 PO Last administered on 12/23/15at 16:00 ; Start 12/22/15 at 16:00; Stop 12/26/15 at 09:29; Status DC Patient Medication Teaching (Coumadin Booklet) 1 ONCE ONCE XX Last administered on 12/21/15at 20:15; Start 12/21/15 at 20:15; Stop 12/21/15 at 20:16; Status DC Chlorhexidine Gluconate (Peridex 0.12% Liq) 15 ml BID@08,20 MT Last administered on 01/12/16at 08:00; Start 12/22/15 at 20:00; Stop 01/12/16 at 11:47 ; Status DC Gadodiamide 20 ml 20 ml STK-MED ONCE IV Last administered on 12/22/15at 09:55; Start 12/22/15 at 09:55; Stop 12/22/15 at 09:56; Status DC Pharmacy Profile Note ml @ 0 mls/hr UNSCH OTHER ; Start 12/22/15 at 11:00; Stop 12/22/15 at 19:43; Status DC Sodium Chloride 1,000 ml @ 50 mls/hr Q20H IV Last administered on 12/24/15at 20: 02; Start 12/22/15 at 18:44; Stop 12/25/15 at 11:52; Status DC Pharmacy Profile Note (Coumadin Consult Pharmacy) 0 ml @ 0 mls/hr UNSCH OTHER ; Start 12/22/15 at 19:45; Stop 01/04/16 at 12:25; Status DC Acetaminophen 650 mg 650 mg Q6H PRN PO TEMP > 100 Last administered on at 13:24; Start 12/23/15 at 02:45; Stop 12/30/15 at 15:04; Status DC Potassium Chloride 100 ml @ 50 mls/hr Q2H PRN IV For Potassium 2.8 - 3.2 mEq/L ; Start 12/23/15 at 08:30; Stop 01/09/16 at 11:14; Status DC Potassium Chloride (KCl 20 Meq Premix Inj) 100 ml @ 50 mls/hr Q2H PRN IV For Potassium 2.8 - 3.2 mEq/L; Start 12/23/15 at 08:30; Stop 01/09/16 at 11:14; Status DC Potassium Chloride 40 meq 40 meq UNSCH PRN PO/TUBE For Potassium 3.3 - 3.5 mEq/ L; Start 12/23/15 at 08:30; Stop 01/09/16 at 11:14; Status DC Potassium Chloride 100 ml @ 25 mls/hr UNSCH PRN IV For Potassium 3.3 - 3.5 mEq /L; Start 12/23/15 at 08:30; Stop 01/09/16 at 11:14; Status DC Potassium Chloride 100 ml @ 50 mls/hr Q2H PRN IV For Potassium 3.3 - 3.5 mEq/L ; Start 12/23/15 at 08:30; Stop 01/09/16 at 11:14; Status DC Magnesium Sulfate/ Sodium Chloride (Magnesium Sulfate Inj/NS Inj) 100 ml @ 50 mls/hr UNSCH PRN IV For Magnesium 0.9 - 1.1 mg/dL; Start 12/23/15 at 08:30; Stop 01/09/16 at 11:14; Status DC Magnesium Oxide 800 mg 800 mg UNSCH PRN PO For Magnesium 1.2 - 1.6 mg/dL; Start 12/23/15 at 08:30; Stop 01/09/16 at 11:14; Status DC Magnesium Sulfate/ Sodium Chloride (Magnesium Sulfate Inj/NS Inj) 100 ml @ 50 mls/hr UNSCH PRN IV For Magnesium 1.2 - 1.6 mg/dL; Start 12/23/15 at 08:30; Stop 01/09/16 at 11:14; Status DC Potassium Phosphate 2000 mg 2,000 mg Q4H PRN PO For Phosphorus < 2.5 mg/dL; Start 12/23/15 at 08:30; Stop 01/09/16 at 11:14; Status DC Sodium Phosphate/ Sodium Chloride (Sodium Phosphate Inj/NS 250 ml Inj) 250 ml @ 42 mls/hr UNSCH PRN IV For Phosphorus < 2.5 mg/dL; Start 12/23/15 at 08:30; Stop 01/09/16 at 11:14; Status DC Potassium Chloride (KCl 40 Meq/30 ml Liq) 40 meq UNSCH PRN PO/TUBE SEE LABEL COMMENTS; Start 12/23/15 at 08:30; Stop 01/09/16 at 11:14; Status DC Potassium Phosphate 2000 mg 2,000 mg UNSCH PRN PO/TUBE SEE LABEL COMMENTS; Start 12/23/15 at 08:30; Stop 01/09/16 at 11:14; Status DC Potassium Phosphate 30 mmol/ Sodium Chloride 260 ml @ 42 mls/hr UNSCH PRN IV SEE LABEL COMMENTS; Start 12/23/15 at 08:30; Stop 01/09/16 at 11:14; Status DC Sodium Chloride 1,000 ml @ 75 mls/hr [id number] IV ; Start 12/23/15 at 08:30; Stop 12/23/15 at 08:30; Status DC Piperacillin Sod/ Tazobactam Sod 50 ml @ 100 mls/hr Q6H IV Last administered on 12/30/15at 10:02; Start 12/23/15 at 10:00; Stop 12/30/15 at 14:50; Status DC Vancomycin HCl/ Sodium Chloride (Vancomycin Inj/ NS 250 ml Inj) 250 ml @ 250 mls/hr Q12H IV Last administered on 12/29/15at 09:01; Start 12/24/15 at 08:45; Stop 12/29/15 at 15:33; Status DC Warfarin Sodium (Coumadin) 4 mg DAILY@16 PO Last administered on 12/28/15at 16:00 ; Start 12/26/15 at 16:00; Stop 01/04/16 at 12:25; Status DC Levetriacetam (Keppra Liq) 500 mg Q12HR TUBE Last administered on 11/16/16t 08 :20; Start 12/27/15 at 21:00 Docusate Sodium (Colace Liq) 100 mg Q12HR TUBE Last administered on 01/15/16at 09:01; Start 12/27/15 at 21:00; Stop 04/16/16 at 08:50; Status DC Sennosides (Senna Liq) 8.8 mg DAILY TUBE Last administered on 01/15/16at 09:01 ; Start 12/27/15 at 17:00; Stop 01/15/16 at 20:37; Status DC Bisacodyl (Dulcolax Supp) 10 mg ONCE ONCE RECTAL ; Start 12/27/15 at 16:15; Stop 12/27/15 at 16:15; Status DC Albuterol/ Ipratropium (Duoneb Neb) 1 ampule Q4HR NEB PRN NEB RESPIRATORY DISTRESS Last administered on 12/29/15at 12:17; Start 12/27/15 at 22:00; Stop at 08:16; Status DC Bisacodyl (Dulcolax Supp) 10 mg ONCE ONCE RECTAL ; Start 12/28/15 at 12:00; Stop 12/28/15 at 12:01; Status DC Sodium Chloride (Sodium Chloride) 1 gm BID TUBE Last administered on 12/29/15at 09:02; Start 12/28/15 at 21:00; Stop 12/29/15 at 15:43; Status DC Lactulose (Lactulose Liq) 30 ml DAILY TUBE Last administered on 12/29/15at 09:02 ; Start 12/28/15 at 20:30; Stop 12/29/15 at 15:43; Status DC Levofloxacin (Levaquin) 750 mg DAILY@16 TUBE ; Start 12/29/15 at 16:00; Stop 05/05 at 16:00; Status DC Sodium Chloride (Sodium Chloride) 1 gm DAILY TUBE Last administered on at 07:29; Start 12/30/15 at 09:00; Stop 12/31/15 at 14:08; Status DC Water 200 ml 200 ml Q6HR G-TUBE Last administered on 12/31/15at 04:19; Start 06/05 at 14:45; Stop 12/31/15 at 07:31; Status DC Ceftriaxone Sodium/Sodium Chloride (Rocephin Inj/NS Inj) 100 ml @ 200 mls/hr Q12H IV Last administered on 01/03/16at 02:47; Start 12/30/15 at 15:00; Stop at 10:09; Status DC Acetaminophen (Tylenol 650 Mg/ 20 ml Liq) 650 mg Q6H PRN TUBE TEMP >100.4 Last administered on 11/14/16t 21:18; Start 12/30/15 at 15:15 Lactobacillus Acidophilus (Lactinex Pkt) 1 gm BID TUBE Last administered on at 09:00; Start 12/30/15 at 21:00; Stop 02/10/16 at 14:30; Status DC Enoxaparin Sodium (Lovenox Inj) 90 mg Q12H SQ Last administered on 01/01/16at 21 :57; Start 12/31/15 at 08:00; Stop 01/03/16 at 10:33; Status DC Water (Free Water) 100 ml Q12H G-TUBE ; Start 12/31/15 at 18:00; Stop 12/31/15 at 18:00; Status DC Acetaminophen/ Hydrocodone Bitart ([place] 5-325 Mg) 1 tab Q6H PRN PO PAIN Last administered on 05/26/16at 20:46; Start 12/31/15 at 15:00; Stop 06/02/16 at 21: 44; Status DC Fentanyl Citrate (Sublimaze Inj) 25 mcg Q1H PRN IV PUSH BREAKTHROUGH PAIN; Start 12/31/15 at 15:00; Stop 03/06/16 at 10:03; Status DC Water (Free Water) 200 ml Q8H G-TUBE Last administered on 01/01/16at 17:55; Start 12/31/15 at 18:00; Stop 6/14/16 at 09:56; Status DC Sodium Chloride (Sodium Chloride) 1 gm BID TUBE Last administered on 01/03/16at 07:39; Start 12/31/15 at 21:00; Stop 01/03/16 at 09:08; Status DC Miscellaneous Information Hold Anticoagulation after midni... ONCE ONCE OTHER ; Start 01/01/16 at 10:15; Stop 01/01/16 at 10:29; Status DC Sodium Chloride (NS 1000 ml Inj) 1,000 ml @ 50 mls/hr Q20H IV Last administered on 01/02/16at 12:26; Start 01/01/16 at 18:00; Stop 01/03/16 at 10:07 ; Status DC Midazolam HCl (Versed Inj) 5 mg STK-MED ONCE .ROUTE ; Start 01/02/16 at 12:47; Stop 01/02/16 at 12:48; Status DC Vecuronium [place] (Norcuron 10 Mg Inj) 10 mg STK-MED ONCE .ROUTE ; Start at 12:47; Stop 01/02/16 at 12:48; Status DC Fentanyl Citrate (Sublimaze Inj) 250 mcg ONCE ONCE IV PUSH Last administered on 01/02/16at 15:00; Start 01/02/16 at 15:00; Stop 01/02/16 at 15:01; Status DC Midazolam HCl (Versed Inj) 10 mg ONCE ONCE IV PUSH Last administered on at 15:00; Start 01/02/16 at 15:00; Stop 01/02/16 at 15:01; Status DC Rocuronium [place] (Zemuron Inj) 100 mg BOLUS ONCE IV Last administered on at 15:00; Start 01/02/16 at 15:00; Stop 01/02/16 at 15:01; Status DC Ketamine HCl (Ketalar Inj) 500 mg STK-MED ONCE .ROUTE ; Start 01/02/16 at 14:30 ; Stop 01/02/16 at 14:31; Status DC Propofol 230 mg 230 mg STK-MED ONCE IV ; Start 01/02/16 at 16:51; Stop 01/02/16 at 16:52; Status DC Sodium Chloride (NS 1000 ml Inj) 1,000 ml @ 0 mls/hr Q0M IV ; Start 01/03/16 at 10:15; Stop 01/17/16 at 17:30; Status DC Ranitidine HCl (Zantac Liq) 150 mg Q12HR PO Last administered on 01/17/16at 07: 39; Start 01/04/16 at 09:00; Stop 01/17/16 at 15:23; Status DC Enoxaparin Sodium 90 mg 90 mg Q12HR SQ Last administered on 01/11/16at 10:01; Start 01/04/16 at 09:00; Stop 01/11/16 at 12:35; Status DC Sodium Chloride (NS 500 ml Inj) 500 ml @ 0 mls/hr BOLUS ONCE IV Last administered on 01/03/16at 22:57; Start 01/03/16 at 23:00; Stop 01/03/16 at 23:01 ; Status DC Insulin Aspart (NovoLOG SUPPLEMENTAL SCALE) 1 Q6HR SQ Last administered on at 12:00; Start 01/04/16 at 12:00; Stop 03/24/16 at 13:58; Status DC Potassium Chloride (KCl 40 Meq/30 ml Liq) 40 meq Q4H NG Last administered on at 16:21; Start 01/04/16 at 13:00; Stop 01/04/16 at 17:01; Status DC Warfarin Sodium 5 mg 5 mg DAILY@1600 PO Last administered on 01/09/16at 17:21; Start 01/04/16 at 16:00; Stop 01/10/16 at 10:06; Status DC Pharmacy Profile Note (Coumadin Consult Pharmacy) 0 ml @ 0 mls/hr UNSCH XX ; Start 01/04/16 at 12:30; Stop 04/20/16 at 12:04; Status DC Insulin Detemir (Levemir Inj) 10 units Q12HR SQ Last administered on 01/05/16at 08:00; Start 01/04/16 at 21:00; Stop 01/05/16 at 08:42; Status DC Insulin Detemir (Levemir Inj) 5 units NOW ONCE SQ Last administered on at 13:28; Start 01/04/16 at 12:45; Stop 01/04/16 at 12:46; Status DC Albuterol/ Ipratropium (Duoneb Neb) 1 ampule Q4HR NEB PRN NEB dyspnea Last administered on 04/19/16 02:24; Start 01/07/16 at 08:15; Stop 04/25/16 at 18:54 ; Status DC Warfarin Sodium (Coumadin) 7.5 mg ONCE ONCE PO Last administered on 01/07/16at 16:40; Start 01/07/16 at 16:00; Stop 01/07/16 at 16:01; Status DC Nystatin (Mycostatin Powder) 1 applic Q12HR TOPICAL Last administered on t 21:00; Start 01/08/16 at 21:00 Ipratropium [place] (Atrovent Neb) 0.5 mg TID NEB NEB Last administered on 02/20at 13:17; Start 01/08/16 at 20:00; Stop 02/21/16 at 17:52; Status DC Warfarin Sodium (Coumadin) 5 mg DAILY@1600 PO Last administered on 01/11/16at 14 :26; Start 01/11/16 at 16:00; Stop 01/12/16 at 09:45; Status DC Warfarin Sodium (Coumadin) 6 mg ONCE PO Last administered on 01/10/16at 17:10; Start 01/10/16 at 16:00; Stop 01/10/16 at 21:00; Status DC Metoprolol Tartrate (Lopressor) 50 mg Q12HR GT Last administered on 01/11/16at 10:02; Start 01/10/16 at 11:00; Stop 01/11/16 at 12:30; Status DC Metoprolol Tartrate (Lopressor) 50 mg TID GT Last administered on 01/14/16at 08: 24; Start 01/11/16 at 13:00; Stop 01/14/16 at 08:28; Status DC Insulin Detemir (Levemir Inj) 10 units HS SQ Last administered on 01/11/16at 22: 23; Start 01/11/16 at 21:00; Stop 01/12/16 at 11:47; Status DC Warfarin Sodium (Coumadin) 4 mg DAILY@16 PO ; Start 01/12/16 at 16:00; Stop at 16:00; Status DC Insulin Detemir (Levemir Inj) 20 units HS SQ Last administered on 01/13/16at 20: 26; Start 01/12/16 at 21:00; Stop 01/14/16 at 08:28; Status DC Warfarin Sodium (Coumadin) 2 mg DAILY@16 PO Last administered on 01/13/16at 17: 05; Start 01/12/16 at 16:00; Stop 01/14/16 at 11:23; Status DC Insulin Detemir (Levemir Inj) 22 units HS SQ Last administered on 01/14/16at 21: 37; Start 01/14/16 at 21:00; Stop 01/15/16 at 10:06; Status DC Metoprolol Tartrate (Lopressor) 75 mg TID GT Last administered on 03/10/16at 17: 43; Start 01/14/16 at 09:00; Stop 03/10/16 at 21:13; Status DC Miscellaneous (Pill Splitter) 1 ea UNSCH PRN OTHER SEE LABEL COMMENTS; Start at 08:30 Warfarin Sodium (Coumadin) 4 mg DAILY@1600 PO Last administered on 01/21/16at 16: 51; Start 01/14/16 at 16:00; Stop 01/23/16 at 09:29; Status DC Patient Medication Teaching (Coumadin Booklet) 1 ONCE ONCE XX ; Start 01/14/16 at 16:00; Stop 01/14/16 at 16:01; Status DC Insulin Detemir (Levemir Inj) 24 units HS SQ Last administered on 03/04/16at 21: 09; Start 01/15/16 at 21:00; Stop 03/05/16 at 11:17; Status DC Citalopram Hydrobromide (CeleXA) 20 mg DAILY PEG Last administered on at 08:01; Start 01/16/16 at 09:00; Stop 01/16/16 at 09:41; Status DC Sennosides (Senna Liq) 8.8 mg BID TUBE Last administered on 02/20/16at 08:32; Start 01/15/16 at 21:00; Stop 02/20/16 at 16:13; Status DC Gadodiamide 18 ml 18 ml STK-MED ONCE IV ; Start 01/16/16 at 20:40; Stop at 20:41; Status DC Sodium Chloride (NS 1000 ml Inj) 1,000 ml @ 125 mls/hr Q8H IV Last administered on 01/17/16at 15:11; Start 01/17/16 at 15:00; Stop 01/17/16 at 17:31 ; Status DC Ranitidine HCl 150 mg 150 mg Q24H PO Last administered on 07/28/16t 08:54; Start 01/18/16 at 09:00; Stop 07/30/16 at 10:05; Status DC Sodium Chloride 1,000 ml @ 75 mls/hr [id number] IV Last administered on at 05:22; Start 01/17/16 at 18:00; Stop 01/18/16 at 09:28; Status DC Sodium Chloride/ Sterile Water (Sodium Chloride 23.4% Inj/Sterile Water For Inj ) 1,009.625 ml @ 60 mls/hr [id number] IV Last administered on 01/21/16at 22:46; Start 01/18/16 at 11:00; Stop 01/22/16 at 10:09; Status DC Potassium Chloride (KCl) 40 meq ONCE ONCE PO ; Start 01/18/16 at 09:30; Stop at 09:31; Status DC Potassium Chloride (KCl 40 Meq/30 ml Liq) 40 meq ONCE ONCE TUBE Last administered on 01/18/16at 11:08; Start 01/18/16 at 11:00; Stop 01/18/16 at 11:01 ; Status DC Water (Free Water) 300 ml Q4HR TUBE Last administered on 01/19/16at 08:00; Start 01/18/16 at 12:00; Stop 01/19/16 at 10:43; Status DC Water (Free Water) 400 ml Q4HR TUBE Last administered on 04/16/16at 04:00; Start 01/19/16 at 12:00; Stop 04/16/16 at 09:09; Status DC Potassium Chloride (KCl 40 Meq/30 ml Liq) 40 meq ONCE ONCE NG Last administered on 01/19/16at 11:41; Start 01/19/16 at 11:00; Stop 01/19/16 at 11:01; Status DC Potassium Chloride 60 meq 60 meq ONCE ONCE PO/TUBE Last administered on at 13:30; Start 01/21/16 at 11:15; Stop 01/21/16 at 11:27; Status DC Sodium Chloride (1/2 NS 1000 ml Inj) 1,000 ml @ 30 mls/hr Q24H IV Last administered on 02/06/16at 11:26; Start 01/22/16 at 11:00; Stop 02/07/16 at 14:49 ; Status DC Warfarin Sodium (Coumadin) 3 mg DAILY@16 PO Last administered on 01/23/16at 17:19 ; Start 01/23/16 at 16:00; Stop 01/24/16 at 14:05; Status DC Warfarin Sodium (Coumadin) 3 mg DAILY@16 PO Last administered on 01/25/16at 15:59 ; Start 01/25/16 at 16:00; Stop 01/26/16 at 15:04; Status DC Warfarin Sodium (Coumadin) 4 mg ONCE@1600 ONCE PO Last administered on at 16:55; Start 01/24/16 at 16:00; Stop 01/24/16 at 16:01; Status DC Warfarin Sodium (Coumadin) 3 mg DAILY@16 PO ; Start 01/27/16 at 16:00; Stop at 16:00; Status DC Warfarin Sodium (Coumadin) 4 mg ONCE@1600 ONCE PO Last administered on at 16:52; Start 01/26/16 at 16:00; Stop 01/26/16 at 16:01; Status DC Potassium Chloride (KCl 40 Meq/30 ml Liq) 80 meq ONCE ONCE PO Last administered on 01/27/16at 07:45; Start 01/27/16 at 07:45; Stop 01/27/16 at 08:10; Status DC Warfarin Sodium (Coumadin) 4 mg DAILY@16 PO Last administered on 02/02/16at 17: 22; Start 01/27/16 at 16:00; Stop 02/03/16 at 11:37; Status DC Acetic Acid (Acetic Acid 0.25% Irr Btl) 10 ml Q8HR IRRIGATION Last administered on 02/05/16at 06:00; Start 01/28/16 at 22:00; Stop 02/05/16 at 15:51 ; Status DC Warfarin Sodium 3 mg 3 mg DAILY@1600 PO Last administered on 02/11/16at 17:34; Start 02/03/16 at 16:00; Stop 02/12/16 at 12:45; Status DC Ceftriaxone Sodium/Sodium Chloride (Rocephin Inj/NS Inj) 100 ml @ 200 mls/hr Q24H IV Last administered on 02/10/16at 05:23; Start 02/05/16 at 06:30; Stop at 14:32; Status DC Acetic Acid (Acetic Acid 0.25% Irr Btl) 10 ml Q8HR IRRIGATION ; Start 02/05/16 at 16:00; Status Cancel Acetic Acid (Acetic Acid 0.25% Irr Btl) 10 ml Q8HR IRRIGATION Last administered on 11/16/16t 05:30; Start 02/05/16 at 16:00 Lactobacillus Acidophilus (Lactinex) 1 tab Q12HR PO Last administered on at 08:25; Start 02/10/16 at 21:00; Stop 02/12/16 at 16:05; Status DC Warfarin Sodium (Coumadin) 4 mg DAILY@1600 PO Last administered on 02/14/16at 15 :56; Start 02/12/16 at 16:00; Stop 02/15/16 at 10:17; Status DC Paroxetine HCl (Paxil Liq) 20 mg DAILY PEG Last administered on 02/25/16at 07:33 ; Start 02/16/16 at 09:00; Stop 02/25/16 at 10:36; Status DC Warfarin Sodium (Coumadin) 3 mg DAILY@1600 PO Last administered on 02/19/16at 16: 42; Start 02/15/16 at 16:00; Stop 02/20/16 at 08:50; Status DC Warfarin Sodium (Coumadin) 4 mg DAILY@16 PO Last administered on 02/21/16at 15:54 ; Start 02/20/16 at 16:00; Stop 02/22/16 at 08:46; Status DC Sennosides (Senna Liq) 8.8 mg DAILY TUBE Last administered on 05/26/16at 08:14 ; Start 02/21/16 at 09:00; Stop 05/27/16 at 11:51; Status DC Albuterol Sulfate (Albuterol Neb) 2.5 mg QID NEB INH Last administered on at 19:51; Start 02/21/16 at 20:00; Stop 02/25/16 at 20:00; Status DC Acetylcysteine (Mucomyst 10% Neb) 1 ml QID NEB NEB Last administered on at 16:32; Start 02/21/16 at 20:00; Stop 02/23/16 at 16:01; Status DC Warfarin Sodium (Coumadin) 3 mg DAILY@16 PO Last administered on 02/22/16at 15:59 ; Start 02/22/16 at 16:00; Stop 02/23/16 at 08:56; Status DC Warfarin Sodium (Coumadin) 3 mg DAILY@16 PO Last administered on 02/28/16at 16: 17; Start 02/24/16 at 16:00; Stop 02/29/16 at 10:04; Status DC Warfarin Sodium (Coumadin) 2 mg ONCE PO Last administered on 02/23/16at 16:22; Start 02/23/16 at 16:00; Stop 02/23/16 at 21:00; Status DC Paroxetine HCl (Paxil Liq) 20 mg DAILY@1900 PEG Last administered on 03/08/16at 18:11; Start 02/26/16 at 19:00; Stop 03/09/16 at 11:31; Status DC Warfarin Sodium (Coumadin) 3 mg DAILY@16 PO Last administered on 03/06/16at 16: 22; Start 03/01/16 at 16:00; Stop 03/09/16 at 10:30; Status DC Warfarin Sodium (Coumadin) 1 mg ONCE PO Last administered on 02/29/16at 17:28; Start 02/29/16 at 16:00; Stop 02/29/16 at 21:00; Status DC Insulin Detemir (Levemir Inj) 27 units HS SQ Last administered on 03/05/16at 20: 25; Start 03/05/16 at 21:00; Stop 03/06/16 at 10:03; Status DC Patient Medication Teaching (Coumadin Booklet) 1 ONCE ONCE XX Last administered on 03/05/16at 16:00; Start 03/05/16 at 16:00; Stop 03/05/16 at 16:01 ; Status DC Insulin Detemir (Levemir Inj) 30 units HS SQ Last administered on 03/21/16at 22: 32; Start 03/06/16 at 21:00; Stop 03/22/16 at 14:48; Status DC Trimethoprim/ Sulfamethoxazole (Bactrim 800-160 Mg/20 ml Liq) 20 ml Q12HR PO Last administered on 03/14/16at 08:01; Start 03/07/16 at 11:15; Stop 03/14/16 at 11:14; Status DC Lorazepam (Ativan Inj) 0.5 mg Q4H PRN IV PUSH seizures or agitation; Start at 23:00 Metronidazole (Flagyl) 500 mg Q8H PO Last administered on 03/14/16at 15:51; Start 03/08/16 at 17:00; Stop 03/14/16 at 23:00; Status DC Warfarin Sodium (Coumadin) 2 mg DAILY@16 PO Last administered on 03/09/16at 17: 20; Start 03/09/16 at 16:00; Stop 03/10/16 at 10:33; Status DC Paroxetine HCl (Paxil) 20 mg DAILY@1900 PEG Last administered on 03/11/16at 17: 55; Start 03/09/16 at 19:00; Stop 03/12/16 at 08:31; Status DC Warfarin Sodium 3 mg 3 mg DAILY@16 PO Last administered on 04/12/16at 15:28; Start 03/10/16 at 16:00; Stop 04/12/16 at 16:39; Status DC Pharmacy Profile Note 0 ml @ 0 mls/hr UNSCH OTHER ; Start 03/10/16 at 14:15; Stop 03/18/16 at 11:33; Status DC Vancomycin HCl/ Sodium Chloride (Vancomycin Inj/ NS 500 ml Inj) 530 ml @ 265 mls/hr Q12H IV Last administered on 03/17/16at 16:26; Start 03/10/16 at 16:00; Stop 03/17/16 at 23:00; Status DC Miscellaneous Information SPECIFIC LAB TO BE ELISA... ONCE ONCE XX Last administered on 03/12/16at 04:45; Start 03/12/16 at 03:45; Stop 03/12/16 at 03:46 ; Status DC Metoprolol Tartrate (Lopressor) 75 mg Q8HR PO Last administered on 04/02/16at 13 :13; Start 03/10/16 at 22:00; Stop 04/02/16 at 17:31; Status DC Paroxetine HCl (Paxil Liq) 20 mg DAILY@1900 PEG Last administered on 11/15/16t 17:58; Start 03/12/16 at 19:00 Warfarin Sodium (Coumadin) 1 mg ONCE PO Last administered on 03/21/16at 16:24; Start 03/21/16 at 16:00; Stop 03/21/16 at 21:00; Status DC Warfarin Sodium (Coumadin) 1 mg ONCE PO Last administered on 03/22/16at 17:46; Start 03/22/16 at 16:00; Stop 03/22/16 at 21:00; Status DC Insulin Detemir (Levemir Inj) 32 units HS SQ Last administered on 03/22/16at 20: 18; Start 03/22/16 at 21:00; Stop 03/23/16 at 13:35; Status DC Diltiazem HCl (Cardizem Cd) 120 mg DAILY PO Last administered on 04/14/16at 07: 43; Start 03/22/16 at 16:00; Stop 04/14/16 at 14:39; Status DC Hyoscyamine Sulfate (Levsin Liq) 0.125 mg Q4H PRN PEG INCREASED SECRETIONS Last administered on 04/10/16at 08:05; Start 03/22/16 at 15:15; Stop 04/11/16 at 10:24; Status DC Warfarin Sodium (Coumadin) 2 mg ONCE ONCE PO Last administered on 03/23/16 17: 26; Start 03/23/16 at 16:00; Stop 03/23/16 at 16:01; Status DC Insulin Detemir (Levemir Inj) 34 units HS SQ Last administered on 03/23/16at 20: 01; Start 03/23/16 at 21:00; Stop 03/24/16 at 13:53; Status DC Insulin Detemir (Levemir Inj) 35 units HS SQ Last administered on 11/15/16t 22: 06; Start 03/24/16 at 21:00 Insulin Aspart (NovoLOG SUPPLEMENTAL SCALE) 1 ACHS SLIDING SCALE SQ Last administered on 04/16/16at 22:27; Start 03/24/16 at 16:00; Stop 04/19/16 at 17:19 ; Status DC Warfarin Sodium (Coumadin) 1 mg ONCE ONCE PO Last administered on 03/30/16at 16 :59; Start 03/30/16 at 16:00; Stop 03/30/16 at 16:01; Status DC Potassium Chloride (KCl 40 Meq/30 ml Liq) 40 meq ONCE ONCE NG Last administered on 03/31/16at 21:28; Start 03/31/16 at 18:30; Stop 03/31/16 at 18:31 ; Status DC Potassium Bicarb/ Potassium Chloride (K-Lyte Cl Eff) 25 meq ONCE ONCE PEG Last administered on 04/02/16at 12:01; Start 04/02/16 at 13:00; Stop 04/02/16 at 13:01; Status DC Metoprolol Tartrate (Lopressor) 75 mg BID PO Last administered on 05/28/16at 21: 03; Start 04/02/16 at 21:00; Stop 05/29/16 at 11:21; Status DC Potassium Bicarb/ Potassium Chloride (K-Lyte Cl Eff) 25 meq ONCE ONCE PEG Last administered on 04/04/16at 14:40; Start 04/04/16 at 12:30; Stop 04/04/16 at 12:31; Status DC Linezolid (Zyvox) 600 mg Q12HR PO Last administered on 04/16/16at 09:11; Start 04/05/16 at 15:00; Stop 04/16/16 at 12:00; Status DC Artificial Tears (Lacrilube Opht Oint) 1 applic Q12HR EACH EYE Last administered on 09/04/16t 21:00; Start 04/10/16 at 11:00; Stop 09/05/16 at 14:38 ; Status DC Hyoscyamine Sulfate (Levsin) 0.25 mg Q4H PRN G-TUBE INCREASED SECRETIONS Last administered on 08/31/16 05:02; Start 04/11/16 at 10:30 Diatrizoate Meglum/ Diatrizoate Sod ( Gastroview Liq) 18 ml ONCE ONCE PO Last administered on 04/12/16at 16:45; Start 04/12/16 at 16:15; Stop 04/12/16 at 16:16; Status DC Warfarin Sodium (Coumadin) 3 mg DAILY@16 PO ; Start 04/13/16 at 16:00; Stop 05/27/16 at 11:51; Status DC Iohexol (Omnipaque 350 Inj) 98 ml STK-MED ONCE IV Last administered on at 21:01; Start 04/12/16 at 21:01; Stop 04/12/16 at 21:02; Status DC Diltiazem HCl (Cardizem Cd) 180 mg DAILY PO ; Start 04/15/16 at 09:00; Stop at 08:50; Status DC Ondansetron HCl (Zofran Inj) 4 mg Q6HR PRN IV PUSH nausea/vomiting Last administered on 08/10/16 10:16; Start 04/14/16 at 19:45 Diltiazem HCl 60 mg 60 mg QID PO Last administered on 04/25/16at 17:26; Start at 13:00; Stop 04/25/16 at 19:06; Status DC Sodium Chloride 500 ml @ 500 mls/hr BOLUS ONCE IV Last administered on at 09:15; Start 04/15/16 at 09:15; Stop 04/15/16 at 10:14; Status DC Potassium Chloride/Dextrose/ Sodium Chloride (KCl Inj/D5W-NS 1000 ml Inj) 1,005 ml @ 100 mls/hr Q10H3M IV Last administered on 04/15/16at 21:03; Start at 11:00; Stop 04/16/16 at 09:09; Status DC Enoxaparin Sodium (Lovenox Inj) 90 mg Q12H SQ Last administered on 04/16/16at 21 :12; Start 04/16/16 at 09:00; Stop 04/17/16 at 10:37; Status DC Water 200 ml 200 ml Q4HR TUBE Last administered on 11/16/16 08:00; Start 04/16 at 12:00 Sodium Chloride 1,000 ml @ 84 mls/hr [id number] IV Last administered on at 08:38; Start 04/16/16 at 10:00; Stop 04/20/16 at 12:04; Status DC Ceftriaxone Sodium/Sodium Chloride (Rocephin Inj/NS Inj) 100 ml @ 200 mls/hr Q24H IV Last administered on 05/02/16at 13:19; Start 04/16/16 at 12:00; Stop 05/03/16 at 12:06; Status DC Acetaminophen/ Hydrocodone Bitart ([place] 5-325 Mg) 1 tab Q6HR PEG Last administered on 09/17/16t 06:42; Start 04/18/16 at 18:00; Stop 09/17/16 at 09:17 ; Status DC Lactulose (Lactulose Liq) 30 ml NOW ONCE PEG Last administered on 04/19/16at 17 :21; Start 04/19/16 at 17:30; Stop 04/19/16 at 17:31; Status DC Lactulose (Lactulose Liq) 30 ml DAILY PEG Last administered on 05/26/16at 08:14 ; Start 04/20/16 at 09:00; Stop 05/27/16 at 11:39; Status DC Potassium Bicarb/ Potassium Chloride (K-Lyte Cl Eff) 50 meq ONCE ONCE PO Last administered on 04/20/16at 05:52; Start 04/20/16 at 05:45; Stop 04/20/16 at 05:46; Status DC Furosemide (Lasix Inj) 20 mg ONCE ONCE IV PUSH Last administered on 04/20/16at 17:35; Start 04/20/16 at 12:00; Stop 04/20/16 at 12:06; Status DC Insulin Aspart (NovoLOG SUPPLEMENTAL SCALE) 1 ACHS SLIDING SCALE SQ Last administered on 06/02/16at 12:10; Start 04/20/16 at 16:00; Stop 06/02/16 at 21: 44; Status DC Dextrose (D50w (Vial) Inj) 25 ml UNSCH PRN IV HYPOGLYCEMIA-SEE COMMENTS; Start 04/20/16 at 12:00 Glucagon (Glucagon Inj) 1 mg UNSCH PRN IM/SQ HYPOGLYCEMIA-SEE COMMENTS; Start 04/20/16 at 12:00 Lactobacillus Acidophilus (Lactinex) 1 tab Q12HR PEG Last administered on 06/06at 21:34; Start 04/22/16 at 09:00; Stop 06/07/16 at 09:32; Status DC Furosemide (Lasix Inj) 20 mg Q12H IV PUSH Last administered on 04/24/16at 08:52 ; Start 04/22/16 at 09:00; Stop 04/24/16 at 09:25; Status DC Potassium Bicarb/ Potassium Chloride (K-Lyte Cl Eff) 25 meq Q12HR TUBE Last administered on 05/27/16at 08:17; Start 04/22/16 at 09:00; Stop 05/27/16 at 11:51 ; Status DC Albumin Human (Albumin 25% Inj) 12.5 gm Q12H IV Last administered on 04/24/16at 08:46; Start 04/22/16 at 09:00; Stop 04/24/16 at 09:25; Status DC Furosemide (Lasix Inj) 20 mg DAILY IV PUSH Last administered on 05/08/16at 09: 01; Start 04/25/16 at 09:00; Stop 05/08/16 at 11:06; Status DC Albumin Human (Albumin 25% Inj) 12.5 gm DAILY IV Last administered on at 09:02; Start 04/25/16 at 10:00; Stop 05/08/16 at 11:06; Status DC Furosemide (Lasix Inj) 40 mg ONCE ONCE IV PUSH Last administered on 04/25/16at 18:15; Start 04/25/16 at 18:15; Stop 04/25/16 at 18:16; Status DC Albuterol/ Ipratropium (Duoneb Neb) 1 ampule Q6HR NEB NEB Last administered on 04/27/16at 15:52; Start 04/25/16 at 18:30; Stop 04/27/16 at 19:45; Status DC Ipratropium [place] (Atrovent Neb) 0.5 mg Q6HR NEB NEB Last administered on at 16:51; Start 04/25/16 at 22:00; Stop 04/27/16 at 16:44; Status DC Levalbuterol HCl (Xopenex Neb) 0.31 mg Q4HR NEB NEB Last administered on at 23:48; Start 04/25/16 at 20:00; Stop 04/27/16 at 16:43; Status DC Levalbuterol HCl (Xopenex Neb) 0.31 mg Q2HR NEB PRN NEB SHORTNESS OF BREATH; Start 04/25/16 at 18:45; Stop 04/28/16 at 10:50; Status DC Diltiazem HCl (Cardizem) 90 mg QID PEG Last administered on 07/17/16at 09:27; Start 04/25/16 at 21:00; Stop 07/17/16 at 17:52; Status DC Diltiazem HCl (Cardizem) 30 mg NOW ONCE PEG Last administered on 04/25/16at 21: 36; Start 04/25/16 at 19:15; Stop 04/25/16 at 19:16; Status DC Levalbuterol HCl (Xopenex Neb) 0.31 mg Q8HR NEB NEB ; Start 04/28/16 at 00:00; Stop 04/28/16 at 10:50; Status DC Levalbuterol HCl (Xopenex Neb) 0.63 mg Q4HR NEB PRN NEB SHORTNESS OF BREATH Last administered on 05/04/16at 15:26; Start 04/28/16 at 11:00; Stop 05/04/16 at 00:51; Status DC Levalbuterol HCl (Xopenex Neb) 0.63 mg Q8HR NEB NEB Last administered on 05/04at 00:07; Start 04/28/16 at 16:00; Stop 05/04/16 at 00:50; Status DC Polyethylene Glycol/ Electrolytes 4000 ml 4,000 ml ONCE ONCE PO Last administered on 05/05/16at 08:10; Start 05/05/16 at 08:45; Stop 05/05/16 at 08 :46; Status DC Cefazolin Sodium/ Dextrose 50 ml @ 100 mls/hr ONCE ONCE IV ; Start 05/06/16 at 14:00; Stop 05/06/16 at 14:29; Status DC Metronidazole 100 ml @ 100 mls/hr ONCE ONCE IV Last administered on at 14:00; Start 05/06/16 at 14:00; Stop 05/06/16 at 14:59; Status DC Ceftriaxone Sodium/Sodium Chloride (Rocephin Inj/NS Inj) 100 ml @ 200 mls/hr Q24H IV Last administered on 06/09/16at 12:36; Start 05/03/16 at 12:00; Stop 06/10/16 at 12:48; Status DC Levalbuterol HCl (Xopenex Neb) 0.63 mg Q8HR NEB NEB Last administered on 05/05at 08:00; Start 05/04/16 at 00:49; Stop 05/05/16 at 08:07; Status DC Levalbuterol HCl (Xopenex Neb) 0.63 mg Q4HR NEB PRN NEB SHORTNESS OF BREATH Last administered on 11/13/16 10:36; Start 05/05/16 at 12:00 Levalbuterol HCl (Xopenex Neb) 0.63 mg Q8HR NEB NEB Last administered on 05/08at 23:56; Start 05/05/16 at 08:15; Stop 05/09/16 at 08:15; Status DC Potassium Bicarb/ Potassium Chloride (K-Lyte Cl Eff) 25 meq DAILY TUBE Last administered on 11/16/16 08:21; Start 05/28/16 at 09:00 Aspirin (Aspirin) 325 mg DAILY TUBE Last administered on 11/16/16 08:23; Start 05/27/16 at 11:40 Docusate Sodium (Colace Liq) 100 mg DAILY PRN PO constipation Last administered on 08/16/16 21:09; Start 05/27/16 at 11:45; Stop 08/31/16 at 09:00 ; Status DC Metoprolol Tartrate (Lopressor) 50 mg BID PO Last administered on 08/23/16 09: 03; Start 05/29/16 at 21:00; Stop 08/23/16 at 15:33; Status DC Acetaminophen/ Hydrocodone Bitart ([place] 5-325 Mg) 1 tab Q6H PRN TUBE BREAKTHROUGH PAIN Last administered on 08/02/16 15:11; Start 06/03/16 at 03:00 ; Stop 09/17/16 at 14:33; Status DC Insulin Aspart (NovoLOG SUPPLEMENTAL SCALE) 1 ACHS SLIDING SCALE SQ Last administered on 06/06/16at 21:35; Start 06/03/16 at 07:00; Stop 06/07/16 at 12 :24; Status DC Lactobacillus Acidophilus (Lactinex) 1 tab TID PEG Last administered on 09:13; Start 06/07/16 at 13:00; Stop 10/13/16 at 12:08; Status DC Insulin Aspart 1 1 AC BREAKFAST SQ Last administered on 11/05/16 07:00; Start 06/08/16 at 07:00 Ceftriaxone Sodium/Sodium Chloride (Rocephin Inj/NS Inj) 100 ml @ 200 mls/hr Q24H IV Last administered on 07/28/16 12:19; Start 06/10/16 at 12:00; Stop 07/29/16 at 13:30; Status DC Heparin Sodium (Porcine) (Heparin Inj) 5,000 units Q12HR SQ Last administered on 06/11/16at 00:58; Start 06/10/16 at 14:15; Stop 06/11/16 at 06:21; Status DC Heparin Sodium (Porcine) (Heparin Inj) 5,000 units Q8HR SQ Last administered on 11/16/16 05:29; Start 06/11/16 at 14:00 Diltiazem HCl (Cardizem) 30 mg QID PEG Last administered on 08/16/16 08:31; Start 07/17/16 at 18:00; Stop 08/16/16 at 12:06; Status DC Bacitracin 1 applic 1 applic BID TOP Last administered on 11/16/16 08:24; Start 07/20/16 at 10:00 Lactated Ringer's 1,000 ml @ 30 mls/hr Q24H IV ; Start 07/21/16 at 17:45; Stop 08/14/16 at 12:08; Status DC Sodium Chloride (NS 500 ml Inj) 500 ml @ 30 mls/hr [id number] IV ; Start 07/21/16 at 17:45; Stop 07/22/16 at 17:44; Status DC Insulin Human Regular (NovoLIN R INJ) See Protocol Table ... UNSCH X1 PRN SQ SEE PROTOCOL; Start 07/21/16 at 17:45; Stop 07/22/16 at 17:44; Status DC Metoprolol Tartrate (Lopressor) 25 mg UNSCH X1 PRN PO SEE LABEL COMMENTS; Start 07/21/16 at 17:45; Stop 07/22/16 at 17:44; Status DC Lidocaine/ Epinephrine (Xylocaine-Epi 1%-1:100,000 Inj) 40 ml STK-MED ONCE .ROUTE Last administered on 07/22/16 10:56; Start 07/22/16 at 10:04; Stop at 10:05; Status DC Ketamine HCl (Ketalar Inj) 500 mg STK-MED ONCE .ROUTE ; Start 07/22/16 at 10:50; Stop 07/22/16 at 10:51; Status DC Propofol 600 mg 600 mg STK-MED ONCE IV ; Start 07/22/16 at 12:00; Stop 07/23/16 at 14:36; Status DC Dextrose 1,000 ml @ 40 mls/hr Q24H ONCE IV Last administered on 07/28/16 14:33 ; Start 07/28/16 at 14:00; Stop 07/29/16 at 13:59; Status DC Ampicillin Sodium/ Sulbactam Sodium/ Sodium Chloride (Unasyn Inj/NS Inj) 100 ml @ 200 mls/hr Q6H IV Last administered on 08/01/16 12:30; Start 07/29/16 at 14: 00; Stop 08/01/16 at 14:13; Status DC Ondansetron HCl 4 mg 4 mg ONCE ONCE IV PUSH Last administered on 07/30/16 02: 46; Start 07/30/16 at 00:30; Stop 07/30/16 at 00:33; Status DC Lactated Ringer's 1,000 ml @ 30 mls/hr Q24H IV ; Start 07/30/16 at 06:00; Stop 08/14/16 at 12:09; Status DC Sodium Chloride (NS 500 ml Inj) 500 ml @ 30 mls/hr [id number] IV ; Start 07/30/16 at 06:00; Stop 07/31/16 at 05:59; Status DC Pantoprazole Sodium (Protonix Inj) 40 mg Q12H IV PUSH Last administered on 11/15 22:06; Start 07/30/16 at 10:15 Propofol 200 mg 200 mg STK-MED ONCE IV ; Start 07/30/16 at 09:41; Stop 07/30/16 at 10:19; Status DC Piperacillin Sod/ Tazobactam Sod (Zosyn 4.5 Gm Premix) 100 ml @ 200 mls/hr Q6H IV Last administered on 08/07/16 09:37; Start 08/01/16 at 16:00; Stop at 16:10; Status DC Linezolid (Zyvox) 600 mg Q12HR PO Last administered on 08/22/16 09:10; Start at 21:00; Stop 08/22/16 at 15:55; Status DC Sodium Chloride ([place]) 1 spray BID NASAL Last administered on 08:23; Start 08/01/16 at 21:00 Metronidazole 500 mg 500 mg Q8H PO Last administered on 08/08/16 08:28; Start 08/07/16 at 16:00; Stop 08/08/16 at 16:10; Status DC Sodium Chloride (NS 1000 ml Inj) 1,000 ml @ 42 mls/hr [id number] IV Last administered on 08/14/16 12:44; Start 08/14/16 at 12:00; Stop 08/15/16 at 10:56 ; Status DC Fentanyl Citrate (fentaNYL INJ) 250 mcg STK-MED ONCE .ROUTE Last administered on 08/14/16 15:36; Start 08/14/16 at 15:36; Stop 08/14/16 at 15:37; Status DC Iohexol (Omnipaque 350 Inj) 30 ml STK-MED ONCE G-TUBE Last administered on 08/14 15:45; Start 08/14/16 at 15:52; Stop 08/14/16 at 15:53; Status DC Diltiazem HCl (Cardizem) 30 mg QID PEG Last administered on 11/16/16 08:22; Start 08/16/16 at 13:00 Polyethylene Glycol (Miralax) 17 gm ONCE ONCE PEG Last administered on 11:32; Start 08/17/16 at 12:00; Stop 08/17/16 at 12:01; Status DC Amoxicillin 500 mg 500 mg Q8HR PO Last administered on 11/16/16 05:29; Start 08/22/16 at 22:00 Cefepime HCl/ Sodium Chloride (Maxipime Inj/NS Inj) 100 ml @ 200 mls/hr Q8H IV Last administered on 09/03/16 10:46; Start 08/23/16 at 16:00; Stop 09/03/16 at 15:02; Status DC Metoprolol Tartrate (Lopressor) 75 mg BID PO Last administered on 09/13/16 08: 42; Start 08/23/16 at 21:00; Stop 09/13/16 at 13:09; Status DC Docusate Sodium (Colace Liq) 100 mg BID PO Last administered on 11/13/16 08:49 ; Start 08/30/16 at 21:00 Sennosides (Senokot) 17.2 mg DAILY PO Last administered on 09/25/16 08:36; Start 08/30/16 at 14:00; Stop 09/25/16 at 16:09; Status DC Lactulose (Lactulose Liq) 30 ml DAILY PO Last administered on 11/16/16 08:21; Start 09/02/16 at 15:30 Artificial Tears (Tears Naturale Opth Soln) 1 drop BID EACH EYE Last administered on 11/16/16 08:23; Start 09/05/16 at 21:00 Midazolam HCl (Versed Inj) 2 mg STK-MED ONCE .ROUTE Last administered on 11:37; Start 09/09/16 at 11:37; Stop 09/09/16 at 11:38; Status DC Fentanyl Citrate (fentaNYL INJ) 100 mcg STK-MED ONCE .ROUTE Last administered on 09/09/16 11:38; Start 09/09/16 at 11:38; Stop 09/09/16 at 11:39; Status DC Iohexol (Omnipaque 350 Inj) 20 ml STK-MED ONCE G-TUBE Last administered on 09/09 11:50; Start 09/09/16 at 11:50; Stop 09/09/16 at 12:15; Status DC Metoprolol Tartrate (Lopressor) 50 mg BID PO Last administered on 11/16/16 08: 22; Start 09/13/16 at 21:00 Acetaminophen/ Hydrocodone Bitart ([place] 5-325 Mg) 1 tab Q6H PEG ; Start at 11:00; Stop 09/17/16 at 14:25; Status DC Acetaminophen/ Hydrocodone Bitart ([place] 5-325 Mg) 1 tab DAILY@1600 PO ; Start 09/17/16 at 16:00; Stop 09/17/16 at 16:00; Status DC Morphine Sulfate (Morphine Inj) 1 mg Q24H PRN IV PUSH dressing change 30 min before Last administered on 10/22/16 02:00; Start 09/17/16 at 14:30 Acetaminophen/ Hydrocodone Bitart ([place] 5-325 Mg) 1 tab DAILY@0000 PO Last administered on 09/17/16 23:43; Start 09/18/16 at 00:00; Stop 09/20/16 at 12:46; Status DC Acetaminophen/ Hydrocodone Bitart ([place] 5-325 Mg) 1 tab Q8H PO Last administered on 10/13/16 13:38; Start 09/20/16 at 13:00; Stop 10/13/16 at 18:29 ; Status DC Ketoconazole (Nizoral 2% Cream) 1 applic Q12HR TOPICAL Last administered on 07:54; Start 09/24/16 at 21:00 Sennosides ([place] Liq) 8.8 mg DAILY@1600 PO Last administered on 11/12/16 16: 45; Start 09/25/16 at 17:00 Sodium Biphosphate/ Sodium Phosphate (Fleets Enema (Adult)) 133 ml UNSCH PRN [place] CONSTIPATION; Start 09/25/16 at 16:00 Bisacodyl (Dulcolax Supp) 10 mg DAILY PRN RECTAL CONSTIPATION Last administered on 10/20/16 12:53; Start 09/26/16 at 15:30 Bisacodyl (Dulcolax Supp) 10 mg ONCE ONCE RECTAL Last administered on 16:10; Start 09/26/16 at 15:30; Stop 09/26/16 at 15:31; Status DC Cyclobenzaprine HCl (Flexeril) 5 mg Q8H PO Last administered on 10/13/16 13:37 ; Start 10/13/16 at 12:15; Stop 10/13/16 at 18:27; Status DC Magnesium Hydroxide (Milk Of Magnesia Liq) 30 ml DAILY PRN PO constipation Last administered on 10/20/16 12:54; Start 10/13/16 at 14:30 Acetaminophen/ Hydrocodone Bitart ([place] 5-325 Mg) 1 tab Q6H PRN PO PAIN SCALE 1 TO 10; Start 10/13/16 at 18:30; Stop 10/13/16 at 18:30; Status DC Acetaminophen/ Hydrocodone Bitart ([place] 5-325 Mg) 1 tab Q6H PRN PO PAIN SCALE 1 TO 10 Last administered on 11/07/16 14:03; Start 10/13/16 at 18:45 Cyclobenzaprine HCl (Flexeril) 5 mg HS PRN PO muscle relaxant Last administered on 10/22/16 21:17; Start 10/14/16 at 14:15 Fentanyl Citrate (fentaNYL INJ) 100 mcg STK-MED ONCE .ROUTE ; Start 10/23/16 at 16:51; Stop 10/23/16 at 16:52; Status DC Glycerin (Glycerin Adult Supp) 2 gm ONCE ONCE RECTAL Last administered on 15:29; Start 10/26/16 at 15:00; Stop 10/26/16 at 15:01; Status DC Nitrofurantoin Macrocrystals (Macrobid) 100 mg BIDPC PO Last administered on 09:36; Start 10/26/16 at 15:00; Stop 10/29/16 at 14:59; Status DC Date of Insertion: Oct 12, 2016 A/P Problem List: (1) CVA (cerebral vascular accident) ICD Code: I63.9 Status: Acute (2) A-fib ICD Code: I48.91 Status: Chronic (3) DM (diabetes mellitus) ICD Code: E11.9 Status: Chronic Assessment and Plan 1. 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 . Continue Keppra for seizure prophylaxis. reconsulted PT/OT per family request. -Need placement. Difficult. Appreciate case management assistance. -PT recommend neuropsych consult. will place. 2. Clogged PEG tube on 10/14 and 10/23 status post PEG tube change, -tube feedings to Glucerna 1.5 at 50 ml per hour. juvena one pack BID. mix with 6 oz of water and flush into feeding tube. -continues to have diarrhea. reconsult flexographic press helper. 3. Chronic respiratory failure -Secondary to CVA. Status post tracheostomy. Continue pulmonary toilet and bronchodilators as needed. Continue trach care, suctioning. Levsin as needed. -Pulmonary currently following . Appreciate assistance. 4. Atrial fibrillation -Continue rate control with Cardizem and metoprolol. Echocardiogram in November 2015 shows preserved ejection fraction. Coumadin discontinued secondary to bleeding. Rate controlled. Continue aspirin and prophylactic heparin dose. 5. History of non-Hodgkin's lymphoma - Status post brain biopsy on December 13 by neurosurgery. Pathology consistent with acute infarct without evidence of lymphoma. Oncology has signed Off 6. Diabetes mellitus -Hemoglobin A1c is 7. Continue Levemir. Monitor Accu-Cheks and cover with sliding scale insulin. Overall blood sugar continues well controlled. 7. Decubitus ulcer stage IV -Continue wound care, twice-daily dressing changes. Wound care recommendations. Continue pressure relief measures including turning and positioning. Patient's family has declined a diverting colostomy. Previous Wound culture growing Klebsiella. on Augmentin. Status post wide excision of sacral skin and biopsy of the cavity lining with debridement on 07/22/16. ID specialist recommended to continue on Amoxicillin and Cefepime for two months will be until the end of September or first days of October. 8. Gastric ulcer, reflux esophagitis - EGD on 07/30/16 showed gastric ulcers. Appreciate GI recommendations. Continue PPI. H&H stable. 9. UTI pseudomonas aeruginosa treated with abx - Resolved. - Repeat Ucx negative. but repeat UA on 11/15 + pending urine cultures. 10. Constipation: -Having regular bowel movements. -on lactulose. Monitor. 11. Anemia Hemoglobin 9.4 stable 12: Fever on 11/15/16 -afebrile since then. -no leukocytosis, cxr negative, UA + and pending cultures. ? colonization so will consult ID. pending blood cultures. - continues to do well off antibiotics. DVT prophylaxis on Heparin Discharge Planning dc planning to SNF-no funding- SSI pending. Problem Qualifiers (1) DM (diabetes mellitus): Qualified Code: E11.9 - Type 2 diabetes mellitus without complications Patsy Wilkes MD Nov 16, 2016 11:01
[2016-11-16] MEDS: SENNOSIDES SYRUP 8.8 MG/5 ML CUP PO SCH (16:00)
[2016-11-16] MEDS: PARoxetine HCL SUSP 20 MG/10 ML UDC PEG SCH (19:28)
[2016-11-16] MEDS: INSULIN DETEMIR 100 UNITS/ML VIAL SQ SCH (21:00)
[2016-11-16 21:13] LABS: C. DIFF EPI 027 PRESUMPTIVE NEGATIVE (NEGATIVE)
[2016-11-17] VITALS (8 sets, daily range): BP systolic 104–121; BP diastolic 63–80; PULSE 79–88; RESP 18–22; TEMP 96.5–98.9; O2SAT 93–99
[2016-11-17] MEDS: FREE WATER TUBE SCH ×6 (04:00→20:00)
[2016-11-17] MEDS: ACETIC ACID 0.25% SOLN 1000 ML IRR BTL IRRIGATION SCH ×3 (04:33→22:00)
[2016-11-17] MEDS: AMOXICILLIN (TRIHYDRATE) 500 MG CAP PO SCH ×3 (05:44→22:00)
[2016-11-17] MEDS: INSULIN ASPART SUPPLEMENTAL SCALE SQ SCH (05:44)
[2016-11-17] MEDS: HEPARIN SODIUM - SQ 10,000 UNITS/ML VIAL SQ SCH ×3 (05:50→21:36)
[2016-11-17] MEDS: NYSTATIN 100,000 U/GM PWD 15 GM BTL TOPICAL SCH (09:00)
[2016-11-17] MEDS: DOCUSATE SODIUM 100 MG/10 ML UDC PO SCH ×2 (09:00→21:00)
[2016-11-17] MEDS: KETOCONAZOLE 2% CREAM 15 GM TOPICAL SCH ×2 (09:00→21:00)
[2016-11-17] MEDS: SODIUM CHLORIDE 0.65% NASAL SPRAY 45 ML BTL NASAL SCH ×2 (09:00→21:00)
[2016-11-17] MEDS: LACTULOSE SYRUP 20 GM/30 ML CUP PO SCH (09:39)
[2016-11-17] MEDS: POTASSIUM CHLORIDE 25 MEQ EFFERVESCENT TAB TUBE SCH (09:39)
[2016-11-17] MEDS: DILTIAZEM HCL 30 MG TAB PEG SCH ×4 (09:39→21:36)
[2016-11-17] MEDS: ASPIRIN 325 MG TAB TUBE SCH (09:39)
[2016-11-17] MEDS: METOPROLOL TARTRATE 50 MG TAB PO SCH ×2 (09:39→21:36)
[2016-11-17] MEDS: BACITRACIN TOP OINT 15 GM TUBE TOP SCH ×2 (09:40→21:00)
[2016-11-17] MEDS: ARTIFICIAL TEARS OPTH SOLN 15 ML BTL EACH EYE SCH ×2 (09:40→21:00)
[2016-11-17] MEDS: levETIRAcetam 500 MG/5 ML UDC TUBE SCH ×2 (09:41→21:36)
[2016-11-17] MEDS: PANTOPRAZOLE SODIUM 40 MG VIAL IV PUSH SCH ×2 (10:24→21:36)
--- NOTE | 2016-11-17 14:05 | HHI.PR ---
Subjective Remarks Follow-up for CVA. Patient is non-verbal. Patient's mother is present at bedside. He has continued to have intermittent loose stools, improved today. Test yesterday was negative for C. difficile. PEG was noted to be clogged this morning. Patient has been started on IV fluids. IR is not available to replace J-tube today. Blood sugars have been stable around 130. Family and nursing staff otherwise report no concerns at this time. Vital signs have remained stable. No report of patient being in discomfort. Objective Vitals Vital Signs Date Time Temp Pulse Resp B/P Pulse Ox O2 Delivery O2 Flow Rate FiO2 11/17/16 12:00 97.3 79 22 104/69 99 11/17/16 09:10 98 T-piece 28 11/17/16 09:10 98 T-piece 28 11/17/16 08:00 97.3 84 22 117/63 93 11/17/16 05:51 99 T-Piece 28 Humidified 11/17/16 05:15 98.9 87 18 121/71 93 11/16/16 23:27 96.9 101 20 148/78 98 11/16/16 20:48 97 11/16/16 20:15 T-Piece 28 11/16/16 17:55 96 T-piece 6.00 28 11/16/16 16:00 96.8 98 24 114/65 96 I/O 11/16/16 11/16/16 11/16/16 11/17/16 11/17/16 11/17/16 07:00 15:00 23:00 07:00 15:00 23:00 Intake Total 1704 ml 855 ml Output Total 800 ml 700 ml 400 ml Balance 904 ml -700 ml 855 ml -400 ml Tube Feeding 1304 ml 605 ml Other 400 ml 250 ml Output Urine Total 800 ml 700 ml 400 ml # Bowel Movements 2 6 Result Diagram: 11/15/16 1117 11/15/16 1117 Objective Remarks Gen: NAD, resting comfortably CV RRR. no r//g Resp trach in place with transmitted upper respiratory sounds. Lungs clear AP ABD: soft NDNT, normoactive bowl sounds. J-tube occluded. J-tube site clean, no redness, drainage NEURO: patient is awake, but does not follow any commands. Unclear if he is tracking, SKIN: Warm, dry, no erythema noted. Procedures 01/02/16 PEG placement 01/02/16 tracheostomy 07/22/2016 Wide excision of sacral skin wound, biopsy of the cavity lining and debridement. PEG tube replacement 07/29/16 VAC changes- M-W-F 10/23- GJ tube replacement Date of Insertion: Oct 12, 2016 A/P Problem List: (1) CVA (cerebral vascular accident) ICD Code: I63.9 Status: Acute (2) A-fib ICD Code: I48.91 Status: Chronic (3) DM (diabetes mellitus) ICD Code: E11.9 Status: Chronic Assessment and Plan 1. 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 . Continue Keppra for seizure prophylaxis. reconsulted PT/OT per family request. -Need placement. Difficult. Appreciate case management assistance. -PT recommend neuropsych consult; currently pending 2. Clogged PEG tube on 10/14, 10/23, and again today 11/17. -IR consulted for PEG tube change -Will start IVF at maintenance w/ scheduled glucose checks, if glucose <100 will start D5 -tube feedings to Glucerna 1.5 at 50 ml per hour. juvena one pack BID. mix with 6 oz of water and flush into feeding tube. -continues to have diarrhea, c.diff and work up negative. Dietary has been reconsulted 3. Chronic respiratory failure -Secondary to CVA. Status post tracheostomy. Continue pulmonary toilet and bronchodilators as needed. Continue trach care, suctioning. Levsin as needed. -Pulmonary currently following . Appreciate assistance. 4. Atrial fibrillation -Continue rate control with Cardizem and metoprolol. Echocardiogram in November 2015 shows preserved ejection fraction. -Coumadin discontinued secondary to bleeding. Rate controlled. Continue aspirin and prophylactic heparin dose. 5. History of non-Hodgkin's lymphoma - Status post brain biopsy on December 13 by neurosurgery. Pathology consistent with acute infarct without evidence of lymphoma. Oncology has signed Off 6. Diabetes mellitus -Hemoglobin A1c is 7. Continue Levemir. Monitor Accu-Cheks and cover with sliding scale insulin. Overall blood sugar continues well controlled. - Hold Levemir until placement of new PEG tube 7. Decubitus ulcer stage IV -Continue wound care, twice-daily dressing changes. Wound care recommendations. Continue pressure relief measures including turning and positioning. Patient's family has declined a diverting colostomy. Previous Wound culture growing Klebsiella. on Augmentin. Status post wide excision of sacral skin and biopsy of the cavity lining with debridement on 07/22/16. ID specialist recommended to continue on Amoxicillin and Cefepime for two months will be until the end of September or first days of October. 8. Gastric ulcer, reflux esophagitis - EGD on 07/30/16 showed gastric ulcers. Appreciate GI recommendations. Continue PPI. H&H stable. 9. UTI pseudomonas aeruginosa treated with abx - Resolved. - Repeat Ucx negative. - Repeat UA on 11/15 positive for pseudomas, sensitive to Zosyn. Begin Zosyn 3.375 q 6hrs. Reconsult ID for further rec's. 10. Constipation: -Having regular bowel movements. -on lactulose. Monitor. 11. Anemia Hemoglobin 9.4 stable 12: Fever on 11/15/16 -afebrile since then. -no leukocytosis -Culture positive, 11/17 as above. Restart ABX, reconsult ID. DVT prophylaxis on Heparin Discharge Planning dc planning to SNF-no funding- SSI pending. Problem Qualifiers (1) DM (diabetes mellitus): Qualified Code: E11.9 - Type 2 diabetes mellitus without complications Berhane Aviles MD R3 Nov 17, 2016 14:05
[2016-11-17] MEDS: SENNOSIDES SYRUP 8.8 MG/5 ML CUP PO SCH (16:00)
[2016-11-17] MEDS: SODIUM CHLOR 0.9% 1000 ML INJ 1,000 ML IV SCH (18:16)
[2016-11-17] MEDS: PIPERACIL-TAZO 3.375 GM PREMIX 50 ML IV SCH ×2 (18:16→22:00)
[2016-11-17] MEDS: PARoxetine HCL SUSP 20 MG/10 ML UDC PEG SCH (18:19)
--- NOTE | 2016-11-17 20:14 | HHI.IDPN ---
Subjective Subjective Remarks Chart reviewed consulted regarding ? UTI dw family pt aparently co abd pain and has liquid diarrhea 10 BMs yday, 2 today no fever her recennly grew MDRO PSAE S to zosyn and he was started on it Patient is a 60-year-old male admitted to the hospital December 20 and was diagnosed to have CVA. He was on the respirator for a while and underwent placement of a tracheostomy. He was eventually weaned off the vent and has been doing well on T piece. Patient has been treated for different infections including Klebsiella pneumonia, sputum from December 27, Klebsiella UTI urine culture from January 31. He also had 1 positive blood culture on admission with staph simulans which is felt to be a contaminant. Patient initially seen by infectious disease on the latter part of December for fevers, and no other etiology was found and it was felt that it could possibly be central fevers. Patient temperatures have been within normal limits up until about 5 days ago when he started having fevers again. Antibiotics zosyn Lines Peripheral IV Past Medical History Hypertension. Stage III non-Hodgkin's lymphoma. Diabetes mellitus. Paroxysmal atrial fibrillation. Brain biopsy in Nov, 2015. History of left arm surgery. 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 Vital Signs Date Time Temp Pulse Resp B/P Pulse Ox O2 Delivery O2 Flow Rate FiO2 11/17/16 18:53 98 T-piece 11/17/16 16:00 97.6 85 22 104/64 98 11/17/16 12:00 97.3 79 22 104/69 99 11/17/16 09:10 98 T-piece 11/17/16 09:10 98 T-piece 11/17/16 08:00 97.3 84 22 117/63 93 11/17/16 08:00 88 11/17/16 05:51 99 T-Piece 28 Humidified 11/17/16 05:15 98.9 87 18 121/71 93 11/16/16 23:27 96.9 101 20 148/78 98 11/16/16 20:48 97 11/16/16 20:15 T-Piece 11/16/16 11/16/1617 15:00 23:00 07:00 Intake Total 855 ml Output Total 700 ml 400 ml Balance -700 ml 855 ml -400 ml Tube Feeding 605 ml Other 250 ml Output Urine Total 700 ml 400 ml # Bowel Movements 6 . Microbiology Date/Time Procedure Status Source Growth 11/15/16 11:05 Aerobic Blood Culture - Preliminary Resulted Blood Peripheral NO GROWTH IN 2 DAYS 11/15/16 11:05 Anaerobic Blood Culture - Final Resulted Blood Peripheral ONLY AEROBIC CULTURE ORDERED 11/15/16 11:17 Aerobic Blood Culture - Preliminary Resulted Blood Peripheral NO GROWTH IN 2 DAYS 11/15/16 11:17 Anaerobic Blood Culture - Final Resulted Blood Peripheral ONLY AEROBIC CULTURE ORDERED 11/15/16 14:00 Urine Culture - Final Complete Urine Clean Catch Pseudomonas Aeruginosa Imaging RADIOLOGY STUDIES/FILMS REVIEWED Last Impressions Chest X-Ray 11/15/16 0000 Signed Impressions: Service Date/Time: Tuesday, November 15, 2016 09:31 - CONCLUSION: Negative chest for acute disease. Octavio Ramírez MD FACR Tube Change 10/23/16 0000 Signed Impressions: Service Date/Time: Sunday, October 23, 2016 16:34 - CONCLUSION: Uncomplicated gastrojejunostomy tube exchange as above. Existing tube was patent with some luminal narrowing. The balloon port was damaged and leaking, however. Bobby Gray MD Abdomen X-Ray 08/31/16 0000 Signed Impressions: Service Date/Time: Wednesday, August 31, 2016 16:36 - CONCLUSION: 1. No acute findings. Mild constipation. Durga Dotson MD Abdomen/Pelvis CT 04/12/16 0000 Signed Impressions: Service Date/Time: Tuesday, April 12, 2016 20:52 - CONCLUSION: 1. 6.4 cm necrotic mass or abscess in the soft tissues posteriorly just below the sacrum associated with some bony destructive change of the lower most sacrum and coccyx with inflammatory changes extending into the ischiorectal fossa and into the presacral retroperitoneum predominantly on the left side. There is associated fairly marked mural thickening of the anal verge and rectum. 2. There is gastrostomy and Lopez catheter present. Stable abdominal aortic aneurysm. Durga Dotson MD Head Magnetic Resonance Angiography 03/05/16 0000 Signed Impressions: Service Date/Time: Saturday, March 05, 2016 09:26 - CONCLUSION: Persistent high-grade subtotal occlusive stenotic lesions in the distal right vertebral artery and proximal basilar artery with significant improvement in flow and recanalization following initial presentation of thrombosis. Stable interstitial circulation without significant stenosis. 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 There is decreasing restricted diffusion and increasing loss of volume characteristic of a subacute to chronic infarct. No evidence of acute infarct, acute hemorrhage mass or edema. Ernesto Kulkarni MD Head CT 01/16/16 0000 Signed Impressions: Service Date/Time: Saturday, January 16, 2016 10:51 - CONCLUSION: No extensive low density in the brainstem colin more prominent in the right the left extending into the right middle cerebellar peduncle consistent with brainstem infarct nonhemorrhagic acute Wellington West MD Neck Magnetic Resonance Angiography 12/22/15 1445 Signed Impressions: Service Date/Time: Tuesday, December 22, 2015 09:22 - CONCLUSION: Variant origin of the left vertebral artery from the aortic arch. No evidence of carotid stenosis. Glen Zamora MD Head/Brain Mag Res Venography 12/22/15 0000 Signed Impressions: Service Date/Time: Tuesday, December 22, 2015 09:22 - CONCLUSION: Normal MRV. Jonel Jones Jr., MD Physical Exam GENERAL: opens eyes when stimulated, not focusing or tracking. NAD. SKIN: Warm and dry. No generalized rash HEENT: [place] conjunctiva. . No scleral icterus. No injection or drainage. Mucous membranes pink and moist. NECK: Tracheostomy site looks okay. Minimal secretions in tubing seen CARDIOVASCULAR: Regular rate and rhythm. No murmur or rub. RESPIRATORY: Decreased breath sounds at the bases. Diffuse b/l rhonchi ABDOMEN: Soft, obese, non-tender ( no reaction to pakllpation), mildly to moderately distended. No guarding. No organomegaly. PEG site looks okay. EXTREMITIES: No clubbing, cyanosis, or edema. No joint effusions. NEUROLOGICAL: Opens eyes when stimulated, no interaction. He is not focusing or tracking. PSYCH: Unable to assess ; lopez in place, urine looks fairly clear LINE: Peripheral IV with no evidence of infection Assessment & Plan Remarks IMPRESSION Recurrent fevers, etiology? ? UTI PSAE vs colonizer New diarrhea, C.diff negative One (+) BC 03/03 GNR, did not grow on solid media, no other (+) BC CVA, with significant neurologic sequela Hx NHL RECOMMENDATION cont zsyn repeat stool for c.diff if persistend diarrhea Violetta Alvarez MD Nov 17, 2016 20:14
[2016-11-18] VITALS (13 sets, daily range): BP systolic 103–137; BP diastolic 63–86; PULSE 66–96; RESP 18–24; TEMP 95.9–98.5; O2SAT 94–100
[2016-11-18] MEDS: SODIUM CHLOR 0.9% 1000 ML INJ 1,000 ML IV SCH ×3 (00:15→20:05)
[2016-11-18] MEDS: FREE WATER TUBE SCH ×7 (04:00→23:50)
[2016-11-18] MEDS: PIPERACIL-TAZO 3.375 GM PREMIX 50 ML IV SCH ×4 (05:40→21:18)
[2016-11-18] MEDS: AMOXICILLIN (TRIHYDRATE) 500 MG CAP PO SCH ×3 (05:42→21:18)
[2016-11-18] MEDS: ACETIC ACID 0.25% SOLN 1000 ML IRR BTL IRRIGATION SCH ×3 (05:43→20:07)
[2016-11-18] MEDS: NYSTATIN 100,000 U/GM PWD 15 GM BTL TOPICAL SCH ×3 (05:43→20:06)
[2016-11-18] MEDS: HEPARIN SODIUM - SQ 10,000 UNITS/ML VIAL SQ SCH ×3 (05:43→21:19)
[2016-11-18] MEDS: INSULIN ASPART SUPPLEMENTAL SCALE SQ SCH (05:53)
[2016-11-18] MEDS: KETOCONAZOLE 2% CREAM 15 GM TOPICAL SCH ×2 (09:00→20:06)
[2016-11-18] MEDS: BACITRACIN TOP OINT 15 GM TUBE TOP SCH ×2 (09:00→20:06)
[2016-11-18] MEDS: SODIUM CHLORIDE 0.65% NASAL SPRAY 45 ML BTL NASAL SCH ×2 (09:00→20:06)
[2016-11-18] MEDS: DOCUSATE SODIUM 100 MG/10 ML UDC PO SCH ×2 (09:00→20:06)
[2016-11-18] MEDS: ASPIRIN 325 MG TAB TUBE SCH ×2 (09:00→09:03)
[2016-11-18] MEDS: ARTIFICIAL TEARS OPTH SOLN 15 ML BTL EACH EYE SCH ×2 (09:00→20:06)
[2016-11-18] MEDS: levETIRAcetam 500 MG/5 ML UDC TUBE SCH ×2 (09:02→20:09)
[2016-11-18] MEDS: DILTIAZEM HCL 30 MG TAB PEG SCH ×4 (09:02→20:06)
[2016-11-18] MEDS: POTASSIUM CHLORIDE 25 MEQ EFFERVESCENT TAB TUBE SCH (09:03)
[2016-11-18] MEDS: METOPROLOL TARTRATE 50 MG TAB PO SCH ×2 (09:03→21:18)
[2016-11-18] MEDS: LACTULOSE SYRUP 20 GM/30 ML CUP PO SCH (09:03)
--- NOTE | 2016-11-18 10:41 | HHI.PR ---
Subjective Remarks Follow up for left MCA stroke, respiratory failure. Patient remains nonverbal but tracks with his eyes. This morning his oxygen saturation went down and he is requiring 50% oxygen. Per RN there was also some bloody discharge from his trach. No further diarrhea today. Later in the morning, patient's O2 sat dropped and Halicat was called. Trach was suctioned and was bagged. Patient was subsequently transferred to the [facility]. Objective Vitals Vital Signs Date Time Temp Pulse Resp B/P Pulse Ox O2 Delivery O2 Flow Rate FiO2 11/18/16 07:30 97.6 79 20 136/74 100 11/18/16 05:55 98 T-Piece 28 Humidified 11/18/16 05:50 95.9 96 24 137/86 94 11/18/16 03:18 98 T-Piece 28 Humidified 11/18/16 01:29 96.7 66 18 103/63 99 11/17/16 20:36 96.5 84 20 117/80 97 11/17/16 20:00 81 11/17/16 18:53 98 T-piece 28 11/17/16 16:00 97.6 85 22 104/64 98 11/17/16 12:00 97.3 79 22 104/69 99 I/O 11/17/16 11/17/16 11/17/16 11/18/16 11/18/16 11/18/16 07:00 15:00 23:00 07:00 15:00 23:00 Intake Total 250 ml 1352 ml Output Total 400 ml 1000 ml 1500 ml Balance -400 ml -1000 ml 250 ml -148 ml IV Total 952 ml Other 250 ml 400 ml Output Urine Total 400 ml 1000 ml 1500 ml # Bowel Movements 2 2 Result Diagram: 11/15/16 1117 11/15/16 1117 Imaging Last Impressions Chest X-Ray 11/15/16 0000 Signed Impressions: Service Date/Time: Tuesday, November 15, 2016 09:31 - CONCLUSION: Negative chest for acute disease. Octavio Ramírez MD FACR Tube Change 10/23/16 0000 Signed Impressions: Service Date/Time: Sunday, October 23, 2016 16:34 - CONCLUSION: Uncomplicated gastrojejunostomy tube exchange as above. Existing tube was patent with some luminal narrowing. The balloon port was damaged and leaking, however. Bobby Gray MD Abdomen X-Ray 08/31/16 0000 Signed Impressions: Service Date/Time: Wednesday, August 31, 2016 16:36 - CONCLUSION: 1. No acute findings. Mild constipation. Durga Dotson MD Abdomen/Pelvis CT 04/12/16 0000 Signed Impressions: Service Date/Time: Tuesday, April 12, 2016 20:52 - CONCLUSION: 1. 6.4 cm necrotic mass or abscess in the soft tissues posteriorly just below the sacrum associated with some bony destructive change of the lower most sacrum and coccyx with inflammatory changes extending into the ischiorectal fossa and into the presacral retroperitoneum predominantly on the left side. There is associated fairly marked mural thickening of the anal verge and rectum. 2. There is gastrostomy and Arevalo catheter present. Stable abdominal aortic aneurysm. Durga Dotson MD Head Magnetic Resonance Angiography 03/05/16 0000 Signed Impressions: Service Date/Time: Saturday, March 05, 2016 09:26 - CONCLUSION: Persistent high-grade subtotal occlusive stenotic lesions in the distal right vertebral artery and proximal basilar artery with significant improvement in flow and recanalization following initial presentation of thrombosis. Stable interstitial circulation without significant stenosis. 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 There is decreasing restricted diffusion and increasing loss of volume characteristic of a subacute to chronic infarct. No evidence of acute infarct, acute hemorrhage mass or edema. Ernesto Kulkarni MD Head CT 01/16/16 0000 Signed Impressions: Service Date/Time: Saturday, January 16, 2016 10:51 - CONCLUSION: No extensive low density in the brainstem colin more prominent in the right the left extending into the right middle cerebellar peduncle consistent with brainstem infarct nonhemorrhagic acute Wellington West MD Neck Magnetic Resonance Angiography 12/22/15 1445 Signed Impressions: Service Date/Time: Tuesday, December 22, 2015 09:22 - CONCLUSION: Variant origin of the left vertebral artery from the aortic arch. No evidence of carotid stenosis. Glen Zamora MD Head/Brain Mag Res Venography 12/22/15 0000 Signed Impressions: Service Date/Time: Tuesday, December 22, 2015 09:22 - CONCLUSION: Normal MRV. Jonel Jones Jr., MD Objective Remarks GENERAL: Tracks with eyes. No verbal communication. SKIN: Warm and dry. HEAD: Normocephalic. EYES: No scleral icterus. No injection or drainage. NECK: Supple, trachea midline. No JVD or lymphadenopathy. CARDIOVASCULAR: Regular rate and rhythm without murmurs, gallops, or rubs. RESPIRATORY: Coarse breath sounds. No accessory muscle use. GASTROINTESTINAL: Abdomen soft, non-tender, nondistended. MUSCULOSKELETAL: No cyanosis, or edema. BACK: Nontender without obvious deformity. No CVA tenderness. Procedures 01/02/16 PEG placement 01/02/16 tracheostomy 07/22/2016 Wide excision of sacral skin wound, biopsy of the cavity lining and debridement. PEG tube replacement 07/29/16 VAC changes- M-W-F 10/23- GJ tube replacement Date of Insertion: Oct 12, 2016 A/P Problem List: (1) CVA (cerebral vascular accident) ICD Code: I63.9 Status: Acute (2) A-fib ICD Code: I48.91 Status: Chronic (3) DM (diabetes mellitus) ICD Code: E11.9 Status: Chronic Assessment and Plan 60-year-old male with past medical history of paroxysmal atrial fibrillation, hypertension, stage III a non-Hodgkin's lymphoma status post a chemotherapy last year. He came to the hospital with altered mental status, facial droop. Patient with significant deficit from CVA. - Acute on Chronic respiratory failure - Patient's O2 sat went down around 84% on 6L of O2 and patient had hemoptysis as well. Halicat was called. RT had to do bag him. - Patient's BP Was 81/58. We will do the following urgently: - STAT CXR, ABG - CBC, BMP, Lactic acid - Fluid bolus - Transfer to ICU and consult swahili teacher. Patient may need mechanical ventilation as well as a bronch. - Continue Zosyn -Secondary to CVA. Status post tracheostomy. Continue pulmonary toilet and bronchodilators as needed. Continue trach care, suctioning. Levsin as needed. Total critical care time spent over 35 minutes. 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 . Continue Keppra for seizure prophylaxis. reconsulted PT/OT per family request. -Need placement. Difficult. Appreciate case management assistance. -PT recommend neuropsych consult; currently pending - Clogged PEG tube on 10/14, 10/23, and again on 11/17. -IR consulted for PEG tube change - Scheduled for 11/18/2016. -Will continue IVF at maintenance w/ scheduled glucose checks, if glucose < 100 will start D5 -tube feedings to Glucerna 1.5 at 50 ml per hour. juvena one pack BID. mix with 6 oz of water and flush into feeding tube. -continues to have diarrhea, c.diff and work up negative. Dietary has been reconsulted - Atrial fibrillation -Continue rate control with Cardizem and metoprolol. Echocardiogram in November 2015 shows preserved ejection fraction. -Coumadin discontinued secondary to bleeding. Rate controlled. Continue aspirin and prophylactic heparin dose. - History of non-Hodgkin's lymphoma - Status post brain biopsy on December 13 by neurosurgery. Pathology consistent with acute infarct without evidence of lymphoma. Oncology has signed Off - Diabetes mellitus -Hemoglobin A1c is 7. Continue Levemir. Monitor Accu-Cheks and cover with sliding scale insulin. Overall blood sugar continues well controlled. - Hold Levemir until placement of new PEG tube - Decubitus ulcer stage IV -Continue wound care, twice-daily dressing changes. Wound care recommendations. Continue pressure relief measures including turning and positioning. Patient's family has declined a diverting colostomy. Previous Wound culture growing Klebsiella. on Augmentin. Status post wide excision of sacral skin and biopsy of the cavity lining with debridement on 07/22/16. ID specialist recommended to continue on Amoxicillin and Cefepime for two months will be until the end of September or first days of October. - Gastric ulcer, reflux esophagitis - EGD on 07/30/16 showed gastric ulcers. Appreciate GI recommendations. Continue PPI. H&H stable. - UTI pseudomonas aeruginosa treated with abx - Resolved. - Repeat Ucx negative. - Repeat UA on 11/15 positive for pseudomas, sensitive to Zosyn. Begin Zosyn 3.375 q 6hrs. Reconsult ID for further rec's. - Constipation: -Having regular bowel movements. -on lactulose. Monitor. - Anemia Hemoglobin 9.4 stable - Fever on 11/15/16 -afebrile since then. -no leukocytosis -Culture positive, 11/17 as above. Restart ABX, reconsulted ID. DVT prophylaxis on Heparin Discharge Planning dc planning to SNF-no funding- SSI pending. Problem Qualifiers (1) DM (diabetes mellitus): Qualified Code: E11.9 - Type 2 diabetes mellitus without complications Birdie Leal DO November 18, 2016 10:41
--- NOTE | 2016-11-18 10:43 | RADRPT ---
EXAM DATE/TIME: 11/18/2016 10:14 [facility] COMPARISON: CHEST SINGLE AP, November 15, 2016, 9:31. INDICATIONS : Halicat. Dyspnea. MEDICAL HISTORY : Hypertension. Diabetes mellitus type II. SURGICAL HISTORY : None. ENCOUNTER: Subsequent ACUITY: 1 week PAIN SCORE: Non-responsive. LOCATION: Bilateral chest FINDINGS: A single view of the chest demonstrates the lungs to be symmetrically aerated without evidence of mas s, infiltrate or effusion. Densities overlie the chest bilaterally but appear to be external to patie nt. Tracheostomy tube with tip at the thoracic inlet. The cardiomediastinal contours are unremarkable . Osseous structures are intact. CONCLUSION: Lungs are clear. Mikie Vargas MD on November 18, 2016 at 10:39 Board Certified Radiologist. This report was verified electronically.
[2016-11-18] MEDS: PANTOPRAZOLE SODIUM 40 MG VIAL IV PUSH SCH ×2 (11:45→21:19)
[2016-11-18 11:46] LABS: BLOOD GAS BASE EXCESS -2.4 mmol/L (-2-2); BLOOD GAS CARBOXYHEMOGLOBIN 1.7 % (0-4); BLOOD GAS HCO3 21 mmol/L (22-26); BLOOD GAS METHEMOGLOBIN 0.5 % (0-2); BLOOD GAS O2 HGB SATURATION 98 % (90-100); BLOOD GAS OXYGEN CONTENT 14.6 Vol % (12.0-20.0); BLOOD GAS PCO2 33 mmHg (38-42); BLOOD GAS PO2 298 mmHg (61-120); BLOOD GAS TOTAL HGB 10.1 G/DL (12.0-16.0); CRITICAL VALUE NO; DRAW SITE RT RADIAL; FIO2 98 %; LITER FLOW 12 L/M; NUMBER OF ARTERIAL PUNCTURES 1; OXYGEN DEVICE TPIECE; TEMP CORR TO 98.6; ULNAR PULSE PRESENT
[2016-11-18 11:47] LABS: STAT NO
[2016-11-18 12:01] LABS: AUTOMATED NEUTROPHIL # 3.3 TH/MM3 (1.8-7.7); BASOPHIL # 0.1 TH/MM3 (0-0.2); BASOPHIL % 1.3 % (0.0-2.0); EOSINOPHIL # 0.2 TH/MM3 (0-0.4); EOSINOPHIL % 3.6 % (0.0-4.0); HEMATOCRIT 29.6 % (39.0-51.0); LYMPHOCYTE # 1.1 TH/MM3 (1.0-4.8); MEAN CELL VOLUME 73.3 FL (80.0-100.0); MEAN CORPUSCULAR HEMOGLOBIN 22.6 PG (27.0-34.0); MEAN CORPUSCULAR HGB CONC 30.8 % (32.0-36.0); MONO % 8.2 % (0.0-8.0); NEUT % 64.9 % (16.0-70.0); PLATELET COUNT 238 TH/MM3 (150-450); RED BLOOD COUNT 4.04 MIL/MM3 (4.50-5.90); RED CELL DISTRIBUTION WIDTH 19.5 % (11.6-17.2); WHITE BLOOD COUNT 5.1 TH/MM3 (4.0-11.0)
[2016-11-18 12:04] LABS: HEMO FLAGS AUTO DIFF
[2016-11-18 12:19] LABS: BICARBONATE 23.9 MEQ/L (21.0-32.0); POTASSIUM 3.9 MEQ/L (3.5-5.1)
[2016-11-18 13:04] LABS: SCAN/DIFF AUTO DIFF CONFIRMED
[2016-11-18] MEDS: SENNOSIDES SYRUP 8.8 MG/5 ML CUP PO SCH (15:42)
--- NOTE | 2016-11-18 16:54 | HHI.PR ---
Subjective Remarks opens eyes on o2 , o2 SAT 98 ON T PIECE NO DITRESS TRACH. OK now in ICU ? ASPIRATION, NOW STABLE CXRAY clear Objective Vital Signs Date Time Temp Pulse Resp B/P Pulse Ox O2 Delivery O2 Flow Rate FiO2 11/18/16 10:51 100 T-piece 98 11/18/16 10:35 100 100 11/18/16 08:00 88 11/18/16 07:30 97.6 79 20 136/74 100 11/18/16 05:55 98 T-Piece 28 Humidified 11/18/16 05:50 95.9 96 24 137/86 94 11/18/16 03:18 98 T-Piece 28 Humidified 11/18/16 01:29 96.7 66 18 103/63 99 11/17/16 20:36 96.5 84 20 117/80 97 11/17/16 20:00 81 11/17/16 18:53 98 T-piece 28 I/O 11/17/16 11/17/16 11/17/16 11/18/16 11/18/16 11/18/16 07:00 15:00 23:00 07:00 15:00 23:00 Intake Total 850 ml 1352 ml 1855 ml Output Total 400 ml 1000 ml 1500 ml 900 ml Balance -400 ml -1000 ml 850 ml -148 ml 955 ml IV Total 952 ml 1455 ml Tube Feeding 0 ml Tube Irrigant 600 ml 200 ml Other 250 ml 400 ml 200 ml Output Urine Total 400 ml 1000 ml 1500 ml 900 ml Stool Total 0 ml # Bowel Movements 2 2 2 Result Diagram: 11/18/16 1135 11/18/16 1135 Procedures 01/02/16 PEG placement 01/02/16 tracheostomy 07/22/2016 Wide excision of sacral skin wound, biopsy of the cavity lining and debridement. PEG tube replacement 07/29/16 Objective Remarks GENERAL: SKIN: Warm and dry. HEAD: Atraumatic. Normocephalic. EYES: Pupils equal and round. No scleral icterus. No injection or drainage. ENT: No nasal bleeding or discharge. Mucous membranes pink and moist. NECK: Trachea midline. No JVD. TRACH. [place] CARDIOVASCULAR: Regular rate and rhythm. RESPIRATORY: No accessory muscle use. Clear to auscultation. Breath sounds equal bilaterally. GASTROINTESTINAL: Abdomen soft, non-tender, nondistended. Hepatic and splenic margins not palpable. MUSCULOSKELETAL: Extremities without clubbing, cyanosis, or edema. No obvious deformities. NEUROLOGICAL: Awake and alert. No obvious cranial nerve deficits. Motor grossly within normal limits. Five out of 5 muscle strength in the arms and legs. Normal speech. PSYCHIATRIC: Appropriate mood and affect; insight and judgment normal. Assessment and Plan Assessment and Plan impression respiratory failure CVA S/P TRACHEOSTOMY PLAN O2 NEEDED PULM. TOILET Brandon Taylor MD November 18, 2016 16:54
--- NOTE | 2016-11-18 17:22 | HHI.IDPN ---
Subjective Subjective Remarks pt was transferred to ICU this am for resp distress ? aspirated J tube clogged NPO Currently comfortable stable on Tpiece Moderate and fairly this secretions afebrile cont to have liquid diarrhea Antibiotics zosyn Lines Peripheral IV Past Medical History Hypertension. Stage III non-Hodgkin's lymphoma. Diabetes mellitus. Paroxysmal atrial fibrillation. Brain biopsy in Nov, 2015. History of left arm surgery. 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 Vital Signs Date Time Temp Pulse Resp B/P Pulse Ox O2 Delivery O2 Flow Rate FiO2 11/18/16 10:51 100 T-piece 98 11/18/16 10:35 100 100 11/18/16 08:00 88 11/18/16 07:30 97.6 79 20 136/74 100 11/18/16 05:55 98 T-Piece 28 Humidified 11/18/16 05:50 95.9 96 24 137/86 94 11/18/16 03:18 98 T-Piece 28 Humidified 11/18/16 01:29 96.7 66 18 103/63 99 11/17/16 20:36 96.5 84 20 117/80 97 11/17/16 20:00 81 11/17/16 18:53 98 T-piece 28 11/17/16 11/17/16 11/18/16 15:00 23:00 07:00 Intake Total 850 ml 1352 ml Output Total 1000 ml 1500 ml Balance -1000 ml 850 ml -148 ml IV Total 952 ml Tube Irrigant 600 ml Other 250 ml 400 ml Output Urine Total 1000 ml 1500 ml # Bowel Movements 2 2 . Laboratory Tests Test 11/18/16 11:35 White Blood Count 5.1 TH/MM3 Red Blood Count 4.04 MIL/MM3 Hemoglobin 9.1 GM/DL Hematocrit 29.6 % Mean Corpuscular Volume 73.3 FL Mean Corpuscular Hemoglobin 22.6 PG Mean Corpuscular Hemoglobin 30.8 % Concent Red Cell Distribution Width 19.5 % Platelet Count 238 TH/MM3 Mean Platelet Volume 8.5 FL Neutrophils (%) (Auto) 64.9 % Lymphocytes (%) (Auto) 22.0 % Monocytes (%) (Auto) 8.2 % Eosinophils (%) (Auto) 3.6 % Basophils (%) (Auto) 1.3 % Neutrophils # (Auto) 3.3 TH/MM3 Lymphocytes # (Auto) 1.1 TH/MM3 Monocytes # (Auto) 0.4 TH/MM3 Eosinophils # (Auto) 0.2 TH/MM3 Basophils # (Auto) 0.1 TH/MM3 CBC Comment AUTO DIFF Differential Comment AUTO DIFF CONFIRMED Laboratory Tests Test 11/18/16 11:35 Sodium Level 136 MEQ/L Potassium Level 3.9 MEQ/L Chloride Level 105 MEQ/L Carbon Dioxide Level 23.9 MEQ/L Anion Gap 7 MEQ/L Blood Urea Nitrogen 7 MG/DL Creatinine 0.82 MG/DL Estimat Glomerular Filtration 96 ML/MIN Rate Random Glucose 133 MG/DL Lactic Acid Level 1.8 mmol/L Calcium Level 8.9 MG/DL Microbiology Date/Time Procedure Status Source Growth 11/18/16 16:30 Gram Stain Received Sputum Endotracheal Pending 11/18/16 16:30 Sputum Culture Received Sputum Endotracheal Pending Imaging Last Impressions Chest X-Ray 11/18/16 1014 Signed Impressions: Service Date/Time: Friday, November 18, 2016 10:14 - CONCLUSION: Lungs are clear. Mikie Vargas MD Tube Change 10/23/16 0000 Signed Impressions: Service Date/Time: Sunday, October 23, 2016 16:34 - CONCLUSION: Uncomplicated gastrojejunostomy tube exchange as above. Existing tube was patent with some luminal narrowing. The balloon port was damaged and leaking, however. Bobby Gray MD Abdomen X-Ray 08/31/16 0000 Signed Impressions: Service Date/Time: Wednesday, August 31, 2016 16:36 - CONCLUSION: 1. No acute findings. Mild constipation. Durga Dotson MD Abdomen/Pelvis CT 04/12/16 0000 Signed Impressions: Service Date/Time: Tuesday, April 12, 2016 20:52 - CONCLUSION: 1. 6.4 cm necrotic mass or abscess in the soft tissues posteriorly just below the sacrum associated with some bony destructive change of the lower most sacrum and coccyx with inflammatory changes extending into the ischiorectal fossa and into the presacral retroperitoneum predominantly on the left side. There is associated fairly marked mural thickening of the anal verge and rectum. 2. There is gastrostomy and Lopez catheter present. Stable abdominal aortic aneurysm. Durga Dotson MD Head Magnetic Resonance Angiography 03/05/16 0000 Signed Impressions: Service Date/Time: Saturday, March 05, 2016 09:26 - CONCLUSION: Persistent high-grade subtotal occlusive stenotic lesions in the distal right vertebral artery and proximal basilar artery with significant improvement in flow and recanalization following initial presentation of thrombosis. Stable interstitial circulation without significant stenosis. 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 There is decreasing restricted diffusion and increasing loss of volume characteristic of a subacute to chronic infarct. No evidence of acute infarct, acute hemorrhage mass or edema. Ernesto Kulkarni MD Head CT 01/16/16 0000 Signed Impressions: Service Date/Time: Saturday, January 16, 2016 10:51 - CONCLUSION: No extensive low density in the brainstem colin more prominent in the right the left extending into the right middle cerebellar peduncle consistent with brainstem infarct nonhemorrhagic acute Wellington West MD Neck Magnetic Resonance Angiography 12/22/15 1445 Signed Impressions: Service Date/Time: Tuesday, December 22, 2015 09:22 - CONCLUSION: Variant origin of the left vertebral artery from the aortic arch. No evidence of carotid stenosis. Glen Zamora MD Head/Brain Mag Res Venography 12/22/15 0000 Signed Impressions: Service Date/Time: Tuesday, December 22, 2015 09:22 - CONCLUSION: Normal MRV. Jonel Jones Jr., MD Physical Exam GENERAL: opens eyes when stimulated, not focusing or tracking. NAD. SKIN: Warm and dry. No generalized rash HEENT: [place] conjunctiva. . No scleral icterus. No injection or drainage. Mucous membranes pink and moist. NECK: Tracheostomy site looks okay. Minimal secretions in tubing seen CARDIOVASCULAR: Regular rate and rhythm. No murmur or rub. RESPIRATORY: Decreased breath sounds at the bases. Few scattered b/l rhonchi ABDOMEN: Soft, obese, non-tender ( no reaction to palpation), mildly to moderately distended. No guarding. No organomegaly. PEG site looks okay. EXTREMITIES: No clubbing, cyanosis, or edema. No joint effusions. NEUROLOGICAL: Opens eyes when stimulated, no interaction. He is not focusing or tracking. PSYCH: Unable to assess ; lopez in place, urine looks fairly clear LINE: Peripheral IV with no evidence of infection Assessment & Plan Remarks IMPRESSION Recurrent fevers, etiology? better UTI PSAE New diarrhea, C.diff negative One (+) BC 03/03 GNR, did not grow on solid media, no other (+) BC CVA, with significant neurologic sequela Hx NHL Resp distress this am - CXR clear Tracheo bronchitis vs early PNA RECOMMENDATION cont zosyn chk sputum clx fu clinicaly dw RN dw @ b/s Violetta Alvarez MD November 18, 2016 17:22
--- NOTE | 2016-11-18 17:58 | PD.RAD ---
Post Procedure Progress Note Pre Procedure Diagnosis: (1) Feeding tube dysfunction Post Procedure Diagnosis: (1) Feeding tube dysfunction Procedure Date: November 18, 2016 Supervising Radiologist: Jonel Jones JR Proceduralist/Assist: Priya Cuba, RT(R), Moira Cartagena RT(R)() Anesthesia: Other Plan of Activity Patient to Unit: Nursing Unit Patient Condition: Good See PACS Report for procedural detail/treatment Feeding Tube Gastro/Jejunostomy Replacement Armenian: 22 Findings: Jejunal port occluded. Replaced with new 22F GJ tube Jr. Robert,Jonel Weiss MD November 18, 2016 17:58
--- NOTE | 2016-11-18 18:26 | RADRPT ---
EXAM DATE/TIME: 11/18/2016 17:38 [place] COMPARISON: No previous studies available for comparison. INDICATIONS : Patient is in need of GJ tube exchange, jejunal port clogged. MEDICAL HISTORY : History of CVA, HTN, AFIB, non Hodgkin's lymphoma, DM, gastric ulcers, esoophagitis, sacral ulcers. SURGICAL HISTORY : History of sacral biopsy, right occipital Adarsh hole brain biopsy, left arm surgery, G-J tube, tracheo stomy. ENCOUNTER: Subsequent ACUITY: 7 - 11 months PAIN SCORE: 0/10 FLUORO TIME: 3.1 minutes IMAGE SERIES: 2 CONTRAST: 20 cc Omnipaque (iohexol) 350 DEVICE(S): 1.) 22 [place] Transgastric tube PROCEDURE : 1. Fluoroscopically guided gastrojejunostomy tube exchange. 2. Conscious sedation with continuous EKG and oximetry monitoring. The risks, benefits and alternatives to the procedure were explained and verbal and written consent w as obtained. The site was prepped in sterile fashion. Full sterile technique was used, including ca p, mask, sterile gloves and gown and a large sterile sheet. Hand hygiene and 2% chlorhexidine and/or betadine/alcohol prep was utilized per protocol for cutaneous antisepsis. The skin and subcutaneous tissues were infiltrated with local anesthetic solution. With fluoroscopic guidance a guidewire was passed through the previous gastrojejunostomy tube and a f resh tube was placed over the guidewire. The balloon was inflated with appropriate volume of saline. Injection of positive contrast demonstrates good position of the gastric and jejunal lumens of the tube. Conscious sedation was performed with the prescribed dosages and duration as above in the presence of an independent trained radiology nurse to assist in the monitoring of the patient. EKG and oximetry remained stable throughout the procedure. The patient tolerated the procedure well and there were n o complications. The patient was sent to post anesthesia recovery in stable condition. CONCLUSION: Uncomplicated gastrojejunostomy tube exchange as above. Jonel Jones Jr., MD on November 18, 2016 at 18:23 Board Certified Radiologist. This report was verified electronically.
[2016-11-18] MEDS: PARoxetine HCL SUSP 20 MG/10 ML UDC PEG SCH (18:45)
[2016-11-19] VITALS (8 sets, daily range): BP systolic 98–127; BP diastolic 61–74; PULSE 76–88; RESP 18–26; TEMP 98.1–98.9; O2SAT 96–100
[2016-11-19] MEDS: PIPERACIL-TAZO 3.375 GM PREMIX 50 ML IV SCH ×3 (03:38→15:35)
[2016-11-19] MEDS: FREE WATER TUBE SCH ×6 (03:39→22:55)
[2016-11-19] MEDS: ACETIC ACID 0.25% SOLN 1000 ML IRR BTL IRRIGATION SCH ×3 (05:21→22:00)
[2016-11-19] MEDS: SODIUM CHLOR 0.9% 1000 ML INJ 1,000 ML IV SCH ×2 (05:21→15:35)
[2016-11-19] MEDS: AMOXICILLIN (TRIHYDRATE) 500 MG CAP PO SCH ×2 (05:21→13:20)
[2016-11-19] MEDS: HEPARIN SODIUM - SQ 10,000 UNITS/ML VIAL SQ SCH ×3 (05:21→22:54)
[2016-11-19] MEDS: INSULIN ASPART SUPPLEMENTAL SCALE SQ SCH (06:06)
[2016-11-19] MEDS: ARTIFICIAL TEARS OPTH SOLN 15 ML BTL EACH EYE SCH ×2 (07:52→21:00)
[2016-11-19] MEDS: DOCUSATE SODIUM 100 MG/10 ML UDC PO SCH ×2 (07:52→21:00)
[2016-11-19] MEDS: DILTIAZEM HCL 30 MG TAB PEG SCH ×3 (07:52→13:20)
[2016-11-19] MEDS: METOPROLOL TARTRATE 50 MG TAB PO SCH ×2 (07:52→22:55)
[2016-11-19] MEDS: LACTULOSE SYRUP 20 GM/30 ML CUP PO SCH (07:52)
[2016-11-19] MEDS: SODIUM CHLORIDE 0.65% NASAL SPRAY 45 ML BTL NASAL SCH ×2 (07:52→21:00)
[2016-11-19] MEDS: levETIRAcetam 500 MG/5 ML UDC TUBE SCH ×2 (07:53→22:54)
[2016-11-19] MEDS: ASPIRIN 325 MG TAB TUBE SCH (07:53)
[2016-11-19] MEDS: BACITRACIN TOP OINT 15 GM TUBE TOP SCH ×2 (07:53→21:00)
[2016-11-19] MEDS: POTASSIUM CHLORIDE 25 MEQ EFFERVESCENT TAB TUBE SCH (07:53)
[2016-11-19] MEDS: NYSTATIN 100,000 U/GM PWD 15 GM BTL TOPICAL SCH ×2 (07:54→21:00)
[2016-11-19] MEDS: KETOCONAZOLE 2% CREAM 15 GM TOPICAL SCH ×2 (07:54→21:00)
--- NOTE | 2016-11-19 08:13 | HHI.PR ---
Subjective Remarks opens eyes on o2 , o2 SAT 98 ON T PIECE NO DITRESS TRACH. OK now in ICU ? ASPIRATION, NOW STABLE CXRAY clear Objective Vital Signs Date Time Temp Pulse Resp B/P Pulse Ox O2 Delivery O2 Flow Rate FiO2 11/19/16 08:05 98 T-piece 28 11/19/16 04:00 98.3 82 24 100/69 98 11/19/16 00:00 98.7 82 23 122/71 100 11/18/16 23:09 97 T-piece 6.00 28 11/18/16 20:00 98.5 85 23 119/68 100 11/18/16 20:00 75 11/18/16 18:15 84 11/18/16 16:30 100 T-Piece 28 Humidified 11/18/16 16:00 82 11/18/16 16:00 98.5 82 22 128/78 100 11/18/16 14:00 74 11/18/16 12:54 100 T-Piece 50 Humidified 11/18/16 12:00 77 11/18/16 12:00 98.4 72 20 110/70 100 11/18/16 11:40 100 T-Piece 70 Humidified 11/18/16 10:51 100 T-piece 98 11/18/16 10:45 82 23 125/75 100 11/18/16 10:35 82 11/18/16 10:35 100 T-Piece 98 Humidified 11/18/16 10:35 100 100 I/O 11/18/16 11/18/16 11/18/16 11/19/16 11/19/16 11/19/16 07:00 15:00 23:00 07:00 15:00 23:00 Intake Total 1352 ml 1855 ml 730 ml 1177 ml Output Total 1500 ml 900 ml 1250 ml 550 ml Balance -148 ml 955 ml -520 ml 627 ml IV Total 952 ml 1455 ml 330 ml 777 ml Tube Feeding 0 ml 0 ml 0 ml Tube Irrigant 200 ml 200 ml 200 ml Other 400 ml 200 ml 200 ml 200 ml Output Urine Total 1500 ml 900 ml 850 ml 550 ml Stool Total 0 ml 400 ml 0 ml # Bowel Movements 2 2 Result Diagram: 11/18/16 1135 11/18/16 1135 Procedures 01/02/16 PEG placement 01/02/16 tracheostomy 07/22/2016 Wide excision of sacral skin wound, biopsy of the cavity lining and debridement. PEG tube replacement 07/29/16 Objective Remarks GENERAL: SKIN: Warm and dry. HEAD: Atraumatic. Normocephalic. EYES: Pupils equal and round. No scleral icterus. No injection or drainage. ENT: No nasal bleeding or discharge. Mucous membranes pink and moist. NECK: Trachea midline. No JVD. TRACH. [place] CARDIOVASCULAR: Regular rate and rhythm. RESPIRATORY: No accessory muscle use. Clear to auscultation. Breath sounds equal bilaterally. GASTROINTESTINAL: Abdomen soft, non-tender, nondistended. Hepatic and splenic margins not palpable. MUSCULOSKELETAL: Extremities without clubbing, cyanosis, or edema. No obvious deformities. NEUROLOGICAL: Awake and alert. No obvious cranial nerve deficits. Motor grossly within normal limits. Five out of 5 muscle strength in the arms and legs. Normal speech. PSYCHIATRIC: Appropriate mood and affect; insight and judgment normal. Assessment and Plan Assessment and Plan impression respiratory failure CVA S/P TRACHEOSTOMY PLAN O2 NEEDED PULM. TOILET Brandon Taylor MD November 19, 2016 08:13
[2016-11-19] MEDS: PANTOPRAZOLE SODIUM 40 MG VIAL IV PUSH SCH ×2 (09:19→22:54)
[2016-11-19] MEDS: SENNOSIDES SYRUP 8.8 MG/5 ML CUP PO SCH (15:35)
--- NOTE | 2016-11-19 17:32 | HHI.PR ---
Subjective Remarks Follow up for left MCA stroke, respiratory failure. Mr. Flores is doing much better today. No further evidence of hemoptysis. Afebrile. O2 saturation is good. Remains non-verbal. Objective Vitals Vital Signs Date Time Temp Pulse Resp B/P Pulse Ox O2 Delivery O2 Flow Rate FiO2 11/19/16 16:00 98.9 81 19 124/66 98 11/19/16 12:00 98.7 76 23 98/61 96 11/19/16 08:05 98 T-piece 28 11/19/16 08:00 98.5 86 26 126/72 98 11/19/16 08:00 86 11/19/16 04:00 98.3 82 24 100/69 98 11/19/16 00:00 98.7 82 23 122/71 100 11/18/16 23:09 97 T-piece 6.00 28 11/18/16 20:00 98.5 85 23 119/68 100 11/18/16 20:00 75 11/18/16 18:15 84 I/O 11/18/16 11/18/16 11/18/16 11/19/16 11/19/16 11/19/16 07:00 15:00 23:00 07:00 15:00 23:00 Intake Total 1352 ml 1855 ml 730 ml 1177 ml 1436 ml Output Total 1500 ml 900 ml 1250 ml 550 ml 750 ml Balance -148 ml 955 ml -520 ml 627 ml 686 ml IV Total 952 ml 1455 ml 330 ml 777 ml 868 ml Tube Feeding 0 ml 0 ml 0 ml 0 ml Tube Irrigant 200 ml 200 ml 200 ml 168 ml Other 400 ml 200 ml 200 ml 200 ml 400 ml Output Urine Total 1500 ml 900 ml 850 ml 550 ml 350 ml Stool Total 0 ml 400 ml 0 ml 400 ml # Bowel Movements 2 2 Result Diagram: 11/18/16 1135 11/18/16 1135 Objective Remarks GENERAL: Tracks with eyes. No verbal communication. SKIN: Warm and dry. HEAD: Normocephalic. EYES: No scleral icterus. No injection or drainage. NECK: Supple, trachea midline. No JVD or lymphadenopathy. CARDIOVASCULAR: Regular rate and rhythm without murmurs, gallops, or rubs. RESPIRATORY: Coarse breath sounds. No accessory muscle use. GASTROINTESTINAL: Abdomen soft, non-tender, nondistended. MUSCULOSKELETAL: No cyanosis, or edema. BACK: Nontender without obvious deformity. No CVA tenderness. Procedures 01/02/16 PEG placement 01/02/16 tracheostomy 07/22/2016 Wide excision of sacral skin wound, biopsy of the cavity lining and debridement. PEG tube replacement 07/29/16 VAC changes- M-W-F 10/23- GJ tube replacement Date of Insertion: Oct 12, 2016 A/P Problem List: (1) CVA (cerebral vascular accident) ICD Code: I63.9 Status: Acute (2) A-fib ICD Code: I48.91 Status: Chronic (3) DM (diabetes mellitus) ICD Code: E11.9 Status: Chronic Assessment and Plan 60-year-old male with past medical history of paroxysmal atrial fibrillation, hypertension, stage III a non-Hodgkin's lymphoma status post a chemotherapy last year. He came to the hospital with altered mental status, facial droop. Patient with significant deficit from CVA. - Acute on Chronic respiratory failure - Currently stable. Maintain trach/T piece. Pulmonary following. O2 sat 97-98 %. 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 Continue Keppra for seizure prophylaxis. reconsulted PT/OT per family request. -Need placement. Difficult. Appreciate case management assistance. - Clogged PEG tube on 10/14, 10/23, and again on 11/17. -IR consulted for PEG tube change - Scheduled for 11/18/2016. -Will continue IVF at maintenance w/ scheduled glucose checks, if glucose < 100 will start D5 -tube feedings Changed to Glucerna 1.0 at 50 ml per hour. juvena one pack BID. mix with 6 oz of water and flush into feeding tube. -continues to have diarrhea, c.diff and work up negative. - Atrial fibrillation -Continue rate control with Cardizem and metoprolol. Echocardiogram in November 2015 shows preserved ejection fraction. -Coumadin discontinued secondary to bleeding. Rate controlled. Continue aspirin and prophylactic heparin dose. - Decrease cardizem frequency and reduce metoprolol from 50mg to 25mg. - History of non-Hodgkin's lymphoma - Status post brain biopsy on December 13 by neurosurgery. Pathology consistent with acute infarct without evidence of lymphoma. Oncology has signed Off - Diabetes mellitus -Hemoglobin A1c is 7. Continue Levemir. Monitor Accu-Cheks and cover with sliding scale insulin. Overall blood sugar continues well controlled. - Hold Levemir until placement of new PEG tube - Decubitus ulcer stage IV -Continue wound care, twice-daily dressing changes. Wound care recommendations. Continue pressure relief measures including turning and positioning. Patient's family has declined a diverting colostomy. Previous Wound culture growing Klebsiella. on Augmentin. Status post wide excision of sacral skin and biopsy of the cavity lining with debridement on 07/22/16. ID specialist recommended to continue on Amoxicillin and Cefepime for two months will be until the end of September or first days of October. - Gastric ulcer, reflux esophagitis - EGD on 07/30/16 showed gastric ulcers. Appreciate GI recommendations. Continue PPI. H&H stable. - UTI pseudomonas aeruginosa treated with abx - Resolved. - Repeat Ucx negative. - Repeat UA on 11/15 positive for pseudomas, sensitive to Zosyn. Begin Zosyn 3.375 q 6hrs. Reconsult ID for further rec's. - Anemia Hemoglobin 9.4 stable DVT prophylaxis on Heparin Discharge Planning dc planning to SNF-no funding- SSI pending. Problem Qualifiers (1) DM (diabetes mellitus): Qualified Code: E11.9 - Type 2 diabetes mellitus without complications Birdie Leal DO November 19, 2016 17:32 3.375 q 6hrs. Reconsult ID for further rec's. - Constipation: -Having regular bowel movements. -on lactulose. Monitor. - Anemia Hemoglobin 9.4 stable - Fever on 11/15/16 -afebrile since then. -no leukocytosis -Culture positive, 11/17 as above. Restart ABX, reconsulted ID. DVT prophylaxis on Heparin Discharge Planning dc planning to SNF-no funding- SSI pending. Problem Qualifiers (1) DM (diabetes mellitus): Qualified Code: E11.9 - Type 2 diabetes mellitus without complications Birdie Leal DO November 19, 2016 5:32 pm
[2016-11-19] MEDS: PARoxetine HCL SUSP 20 MG/10 ML UDC PEG SCH (18:55)
--- NOTE | 2016-11-19 22:46 | HHI.IDPN ---
Subjective Subjective Remarks delaeyed entry pt seen by me today around 4 pm afebrile having diarrhea Antibiotics zosyn amoxicillin Lines Peripheral IV Past Medical History Hypertension. Stage III non-Hodgkin's lymphoma. Diabetes mellitus. Paroxysmal atrial fibrillation. Brain biopsy in Nov, 2015. History of left arm surgery. 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 Vital Signs Date Time Temp Pulse Resp B/P Pulse Ox O2 Delivery O2 Flow Rate FiO2 11/19/16 21:05 99 T-piece 28 11/19/16 16:00 98.9 81 19 124/66 98 11/19/16 12:00 98.7 76 23 98/61 96 11/19/16 08:05 98 T-piece 28 11/19/16 08:00 98.5 86 26 126/72 98 11/19/16 08:00 86 11/19/16 04:00 98.3 82 24 100/69 98 11/19/16 00:00 98.7 82 23 122/71 100 11/18/16 23:09 97 T-piece 6.00 28 11/18/16 11/18/16 11/19/16 15:00 23:00 07:00 Intake Total 1855 ml 730 ml 1177 ml Output Total 900 ml 1250 ml 550 ml Balance 955 ml -520 ml 627 ml IV Total 1455 ml 330 ml 777 ml Tube Feeding 0 ml 0 ml 0 ml Tube Irrigant 200 ml 200 ml 200 ml Other 200 ml 200 ml 200 ml Output Urine Total 900 ml 850 ml 550 ml Stool Total 0 ml 400 ml 0 ml # Bowel Movements 2 . Laboratory Tests Test 11/18/16 11:35 White Blood Count 5.1 TH/MM3 Red Blood Count 4.04 MIL/MM3 Hemoglobin 9.1 GM/DL Hematocrit 29.6 % Mean Corpuscular Volume 73.3 FL Mean Corpuscular Hemoglobin 22.6 PG Mean Corpuscular Hemoglobin 30.8 % Concent Red Cell Distribution Width 19.5 % Platelet Count 238 TH/MM3 Mean Platelet Volume 8.5 FL Neutrophils (%) (Auto) 64.9 % Lymphocytes (%) (Auto) 22.0 % Monocytes (%) (Auto) 8.2 % Eosinophils (%) (Auto) 3.6 % Basophils (%) (Auto) 1.3 % Neutrophils # (Auto) 3.3 TH/MM3 Lymphocytes # (Auto) 1.1 TH/MM3 Monocytes # (Auto) 0.4 TH/MM3 Eosinophils # (Auto) 0.2 TH/MM3 Basophils # (Auto) 0.1 TH/MM3 CBC Comment AUTO DIFF Differential Comment AUTO DIFF CONFIRMED Laboratory Tests Test 11/18/16 11:35 Sodium Level 136 MEQ/L Potassium Level 3.9 MEQ/L Chloride Level 105 MEQ/L Carbon Dioxide Level 23.9 MEQ/L Anion Gap 7 MEQ/L Blood Urea Nitrogen 7 MG/DL Creatinine 0.82 MG/DL Estimat Glomerular Filtration 96 ML/MIN Rate Random Glucose 133 MG/DL Lactic Acid Level 1.8 mmol/L Calcium Level 8.9 MG/DL Microbiology Date/Time Procedure Status Source Growth 11/18/16 16:30 Gram Stain - Final Resulted Sputum Endotracheal 11/18/16 16:30 Sputum Culture - Preliminary Resulted Pseudomonas Species Imaging Last Impressions Chest X-Ray 11/18/16 1014 Signed Impressions: Service Date/Time: Friday, November 18, 2016 10:14 - CONCLUSION: Lungs are clear. Mikie Vargas MD Tube Change 11/18/16 0000 Signed Impressions: Service Date/Time: Friday, November 18, 2016 17:38 - CONCLUSION: Uncomplicated gastrojejunostomy tube exchange as above. Jonel Jones Jr., MD Abdomen X-Ray 08/31/16 0000 Signed Impressions: Service Date/Time: Wednesday, August 31, 2016 16:36 - CONCLUSION: 1. No acute findings. Mild constipation. Durga Dotson MD Abdomen/Pelvis CT 04/12/16 0000 Signed Impressions: Service Date/Time: Tuesday, April 12, 2016 20:52 - CONCLUSION: 1. 6.4 cm necrotic mass or abscess in the soft tissues posteriorly just below the sacrum associated with some bony destructive change of the lower most sacrum and coccyx with inflammatory changes extending into the ischiorectal fossa and into the presacral retroperitoneum predominantly on the left side. There is associated fairly marked mural thickening of the anal verge and rectum. 2. There is gastrostomy and Lopez catheter present. Stable abdominal aortic aneurysm. Durga Dotson MD Head Magnetic Resonance Angiography 03/05/16 0000 Signed Impressions: Service Date/Time: Saturday, March 05, 2016 09:26 - CONCLUSION: Persistent high-grade subtotal occlusive stenotic lesions in the distal right vertebral artery and proximal basilar artery with significant improvement in flow and recanalization following initial presentation of thrombosis. Stable interstitial circulation without significant stenosis. 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 There is decreasing restricted diffusion and increasing loss of volume characteristic of a subacute to chronic infarct. No evidence of acute infarct, acute hemorrhage mass or edema. Ernesto Kulkarni MD Head CT 01/16/16 0000 Signed Impressions: Service Date/Time: Saturday, January 16, 2016 10:51 - CONCLUSION: No extensive low density in the brainstem colin more prominent in the right the left extending into the right middle cerebellar peduncle consistent with brainstem infarct nonhemorrhagic acute Wellington West MD Neck Magnetic Resonance Angiography 12/22/15 1445 Signed Impressions: Service Date/Time: Tuesday, December 22, 2015 09:22 - CONCLUSION: Variant origin of the left vertebral artery from the aortic arch. No evidence of carotid stenosis. Glen Zamora MD Head/Brain Mag Res Venography 12/22/15 0000 Signed Impressions: Service Date/Time: Tuesday, December 22, 2015 09:22 - CONCLUSION: Normal MRV. Jonel Jones Jr., MD Physical Exam GENERAL: opens eyes when stimulated, not focusing or tracking. NAD. SKIN: Warm and dry. No generalized rash HEENT: [place] conjunctiva. . No scleral icterus. No injection or drainage. Mucous membranes pink and moist. NECK: Tracheostomy site looks okay. no secretions in tubing seen CARDIOVASCULAR: Regular rate and rhythm. No murmur or rub. RESPIRATORY: Decreased breath sounds at the bases. Few scattered b/l rhonchi ABDOMEN: Soft, obese, non-tender ( no reaction to palpation), mildly to moderately distended. No guarding. No organomegaly. PEG site looks okay. EXTREMITIES: No clubbing, cyanosis, or edema. No joint effusions. NEUROLOGICAL: Opens eyes when stimulated, no interaction. He is not focusing or tracking. PSYCH: Unable to assess ; lopez in place, urine looks fairly clear LINE: Peripheral IV with no evidence of infection Assessment & Plan Remarks IMPRESSION Recurrent fevers, etiology? better UTI PSAE New diarrhea, C.diff negative One (+) BC 03/03 GNR, did not grow on solid media, no other (+) BC CVA, with significant neurologic sequela Hx NHL Resp distress this am - CXR clear Tracheo bronchitis vs early PNA - growing pseudomonas persistent diarrhea RECOMMENDATION cont zosyn dc amoxicillin fu sputum clx untill final fu clinicaly Antimotlity agents to control diarrhea kenna RN dw @ b/s Violetta Alvarez MD November 19, 2016 22:46
[2016-11-20] VITALS (10 sets, daily range): BP systolic 98–125; BP diastolic 61–88; PULSE 74–87; RESP 18–19; TEMP 96.9–98.5; O2SAT 95–99
[2016-11-20] MEDS: DILTIAZEM HCL 30 MG TAB PEG SCH ×2 (01:00→13:56)
[2016-11-20] MEDS: PIPERACIL-TAZO 3.375 GM PREMIX 50 ML IV SCH ×4 (04:00→21:14)
[2016-11-20] MEDS: FREE WATER TUBE SCH ×5 (04:00→20:00)
[2016-11-20] MEDS: ACETIC ACID 0.25% SOLN 1000 ML IRR BTL IRRIGATION SCH ×2 (06:00→14:14)
[2016-11-20] MEDS: HEPARIN SODIUM - SQ 10,000 UNITS/ML VIAL SQ SCH ×3 (06:00→21:13)
[2016-11-20] MEDS: INSULIN ASPART SUPPLEMENTAL SCALE SQ SCH (07:00)
[2016-11-20] MEDS: BACITRACIN TOP OINT 15 GM TUBE TOP SCH ×2 (08:02→21:15)
[2016-11-20] MEDS: NYSTATIN 100,000 U/GM PWD 15 GM BTL TOPICAL SCH (08:02)
[2016-11-20] MEDS: METOPROLOL TARTRATE 50 MG TAB PO SCH (08:03)
[2016-11-20] MEDS: DOCUSATE SODIUM 100 MG/10 ML UDC PO SCH (08:03)
[2016-11-20] MEDS: POTASSIUM CHLORIDE 25 MEQ EFFERVESCENT TAB TUBE SCH (08:03)
[2016-11-20] MEDS: LACTULOSE SYRUP 20 GM/30 ML CUP PO SCH (08:03)
[2016-11-20] MEDS: SODIUM CHLORIDE 0.65% NASAL SPRAY 45 ML BTL NASAL SCH ×2 (08:03→21:00)
[2016-11-20] MEDS: ARTIFICIAL TEARS OPTH SOLN 15 ML BTL EACH EYE SCH ×2 (08:03→21:16)
[2016-11-20] MEDS: levETIRAcetam 500 MG/5 ML UDC TUBE SCH ×2 (08:03→21:14)
[2016-11-20] MEDS: ASPIRIN 325 MG TAB TUBE SCH (08:04)
[2016-11-20] MEDS: KETOCONAZOLE 2% CREAM 15 GM TOPICAL SCH ×2 (08:07→21:00)
--- NOTE | 2016-11-20 08:52 | HHI.PR ---
Subjective Remarks opens eyes on o2 , o2 SAT 98 ON T PIECE NO DITRESS TRACH. OK now in ICU ? ASPIRATION, NOW STABLE CXRAY clear Objective Vital Signs Date Time Temp Pulse Resp B/P Pulse Ox O2 Delivery O2 Flow Rate FiO2 11/20/16 08:27 96.9 80 18 119/69 98 11/20/16 05:00 97.9 80 18 118/88 98 11/20/16 02:33 85 11/20/16 00:30 98.4 80 19 125/80 99 11/19/16 22:00 98.1 88 18 127/74 100 11/19/16 21:05 99 T-piece 28 11/19/16 16:00 98.9 81 19 124/66 98 11/19/16 12:00 98.7 76 23 98/61 96 I/O 11/19/16 11/19/16 11/19/16 11/20/16 11/20/16 11/20/16 07:00 15:00 23:00 07:00 15:00 23:00 Intake Total 1177 ml 1436 ml 0 ml Output Total 550 ml 750 ml Balance 627 ml 686 ml 0 ml Intake Oral 0 ml IV Total 777 ml 868 ml Tube Feeding 0 ml 0 ml Tube Irrigant 200 ml 168 ml Other 200 ml 400 ml Output Urine Total 550 ml 350 ml Stool Total 0 ml 400 ml Result Diagram: 11/18/16 1135 11/18/16 1135 Procedures 01/02/16 PEG placement 01/02/16 tracheostomy 07/22/2016 Wide excision of sacral skin wound, biopsy of the cavity lining and debridement. PEG tube replacement 07/29/16 Objective Remarks GENERAL: SKIN: Warm and dry. HEAD: Atraumatic. Normocephalic. EYES: Pupils equal and round. No scleral icterus. No injection or drainage. ENT: No nasal bleeding or discharge. Mucous membranes pink and moist. NECK: Trachea midline. No JVD. TRACH. [place] CARDIOVASCULAR: Regular rate and rhythm. RESPIRATORY: No accessory muscle use. Clear to auscultation. Breath sounds equal bilaterally. GASTROINTESTINAL: Abdomen soft, non-tender, nondistended. Hepatic and splenic margins not palpable. MUSCULOSKELETAL: Extremities without clubbing, cyanosis, or edema. No obvious deformities. NEUROLOGICAL: Awake and alert. No obvious cranial nerve deficits. Motor grossly within normal limits. Five out of 5 muscle strength in the arms and legs. Normal speech. PSYCHIATRIC: Appropriate mood and affect; insight and judgment normal. Assessment and Plan Assessment and Plan impression respiratory failure CVA S/P TRACHEOSTOMY PLAN O2 NEEDED PULM. TOILET Brandon Taylor MD November 20, 2016 08:52
[2016-11-20] MEDS: PANTOPRAZOLE SODIUM 40 MG VIAL IV PUSH SCH ×2 (11:06→21:14)
[2016-11-20] MEDS: SODIUM CHLOR 0.9% 1000 ML INJ 1,000 ML IV SCH (12:12)
--- NOTE | 2016-11-20 15:24 | HHI.PR ---
Objective Vitals Vital Signs Date Time Temp Pulse Resp B/P Pulse Ox O2 Delivery O2 Flow Rate FiO2 11/20/16 12:51 98.1 74 19 98/66 97 11/20/16 08:50 98 T-piece 28 11/20/16 08:27 96.9 80 18 119/69 98 11/20/16 05:00 97.9 80 18 118/88 98 11/20/16 02:33 85 11/20/16 00:30 98.4 80 19 125/80 99 11/19/16 22:00 98.1 88 18 127/74 100 11/19/16 21:05 99 T-piece 11/19/16 16:00 98.9 81 19 124/66 98 I/O 11/19/16 11/19/16 11/19/16 11/20/16 11/20/16 11/20/16 07:00 15:00 23:00 07:00 15:00 23:00 Intake Total 1177 ml 1436 ml 0 ml Output Total 550 ml 750 ml Balance 627 ml 686 ml 0 ml Intake Oral 0 ml IV Total 777 ml 868 ml Tube Feeding 0 ml 0 ml Tube Irrigant 200 ml 168 ml Other 200 ml 400 ml Output Urine Total 550 ml 350 ml Stool Total 0 ml 400 ml Result Diagram: 11/18/16 1135 11/18/16 1135 Objective Remarks GENERAL: Tracks with eyes. No verbal communication. SKIN: Warm and dry. HEAD: Normocephalic. EYES: No scleral icterus. No injection or drainage. NECK: Supple, trachea midline. No JVD or lymphadenopathy. CARDIOVASCULAR: Regular rate and rhythm without murmurs, gallops, or rubs. RESPIRATORY: Coarse breath sounds. No accessory muscle use. GASTROINTESTINAL: Abdomen soft, non-tender, nondistended. MUSCULOSKELETAL: No cyanosis, or edema. BACK: Nontender without obvious deformity. No CVA tenderness. Procedures 01/02/16 PEG placement 01/02/16 tracheostomy 07/22/2016 Wide excision of sacral skin wound, biopsy of the cavity lining and debridement. PEG tube replacement 07/29/16 VAC changes- M-W-F 4/5- GJ tube replacement Date of Insertion: Oct 12, 2016 A/P Problem List: (1) CVA (cerebral vascular accident) ICD Code: I63.9 Status: Acute (2) A-fib ICD Code: I48.91 Status: Chronic (3) DM (diabetes mellitus) ICD Code: E11.9 Status: Chronic Assessment and Plan 60-year-old male with past medical history of paroxysmal atrial fibrillation, hypertension, stage III a non-Hodgkin's lymphoma status post a chemotherapy last year. He came to the hospital with altered mental status, facial droop. Patient with significant deficit from CVA. - Acute on Chronic respiratory failure - Currently stable. Maintain trach/T piece. Pulmonary following. O2 sat 97-98 %. 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 Continue Keppra for seizure prophylaxis. reconsulted PT/OT per family request. -Need placement. Difficult. Appreciate case management assistance. - Clogged PEG tube on 10/14, 10/23, and again on 11/17. -IR consulted for PEG tube change - Scheduled for 11/18/2016. -Will continue IVF at maintenance w/ scheduled glucose checks, if glucose < 100 will start D5 -tube feedings Changed to Glucerna 1.0 at 50 ml per hour. juvena one pack BID. mix with 6 oz of water and flush into feeding tube. -continues to have diarrhea, c.diff and work up negative. - Atrial fibrillation -Continue rate control with Cardizem and metoprolol. Echocardiogram in November 2015 shows preserved ejection fraction. -Coumadin discontinued secondary to bleeding. Rate controlled. Continue aspirin and prophylactic heparin dose. - Decrease cardizem frequency and reduce metoprolol from 50mg to 25mg. - History of non-Hodgkin's lymphoma - Status post brain biopsy on December 13 by neurosurgery. Pathology consistent with acute infarct without evidence of lymphoma. Oncology has signed Off - Diabetes mellitus -Hemoglobin A1c is 7. Continue Levemir. Monitor Accu-Cheks and cover with sliding scale insulin. Overall blood sugar continues well controlled. - Hold Levemir until placement of new PEG tube - Decubitus ulcer stage IV -Continue wound care, twice-daily dressing changes. Wound care recommendations. Continue pressure relief measures including turning and positioning. Patient's family has declined a diverting colostomy. Previous Wound culture growing Klebsiella. on Augmentin. Status post wide excision of sacral skin and biopsy of the cavity lining with debridement on 07/22/16. ID specialist recommended to continue on Amoxicillin and Cefepime for two months will be until the end of September or first days of October. - Gastric ulcer, reflux esophagitis - EGD on 07/30/16 showed gastric ulcers. Appreciate GI recommendations. Continue PPI. H&H stable. - UTI pseudomonas aeruginosa treated with abx - Resolved. - Repeat Ucx negative. - Repeat UA on 11/15 positive for pseudomas, sensitive to Zosyn. Begin Zosyn 3.375 q 6hrs. Reconsult ID for further rec's. - Anemia Hemoglobin 9.4 stable DVT prophylaxis on Heparin Discharge Planning dc planning to SNF-no funding- SSI pending. Problem Qualifiers (1) DM (diabetes mellitus): Qualified Code: E11.9 - Type 2 diabetes mellitus without complications Birdie Leal DO November 20, 2016 15:24
[2016-11-20] MEDS: SENNOSIDES SYRUP 8.8 MG/5 ML CUP PO SCH (16:36)
--- NOTE | 2016-11-20 16:48 | HHI.PR ---
Subjective Remarks Follow up for left MCA stroke, respiratory failure. Mr. Flores remains non- verbal. Per mother at bedside, he continues to have a lot of diarrhea. No fever , chills. O2 sat, heart rate are all within reasonable range. Objective Vitals Vital Signs Date Time Temp Pulse Resp B/P Pulse Ox O2 Delivery O2 Flow Rate FiO2 11/20/16 16:23 98.5 78 18 101/69 99 11/20/16 12:51 98.1 74 19 98/66 97 11/20/16 08:50 98 T-piece 28 11/20/16 08:27 96.9 80 18 119/69 98 11/20/16 05:00 97.9 80 18 118/88 98 11/20/16 02:33 85 11/20/16 00:30 98.4 80 19 125/80 99 11/19/16 22:00 98.1 88 18 127/74 100 11/19/16 21:05 99 T-piece 28 I/O 11/19/16 11/19/16 11/19/16 11/20/16 11/20/16 11/20/16 07:00 15:00 23:00 07:00 15:00 23:00 Intake Total 1177 ml 1436 ml 0 ml Output Total 550 ml 750 ml 600 ml Balance 627 ml 686 ml 0 ml -600 ml Intake Oral 0 ml IV Total 777 ml 868 ml Tube Feeding 0 ml 0 ml Tube Irrigant 200 ml 168 ml Other 200 ml 400 ml Output Urine Total 550 ml 350 ml 600 ml Stool Total 0 ml 400 ml Result Diagram: 11/18/16 1135 11/18/16 1135 Objective Remarks GENERAL: Tracks with eyes. No verbal communication. SKIN: Warm and dry. HEAD: Normocephalic. EYES: No scleral icterus. No injection or drainage. NECK: Supple, trachea midline. No JVD or lymphadenopathy. CARDIOVASCULAR: Regular rate and rhythm without murmurs, gallops, or rubs. RESPIRATORY: Coarse breath sounds. No accessory muscle use. GASTROINTESTINAL: Abdomen soft, non-tender, nondistended. MUSCULOSKELETAL: No cyanosis, or edema. BACK: Nontender without obvious deformity. No CVA tenderness. Procedures 01/02/16 PEG placement 01/02/16 tracheostomy 07/22/2016 Wide excision of sacral skin wound, biopsy of the cavity lining and debridement. PEG tube replacement 07/29/16 VAC changes- M-W-F 10/23- GJ tube replacement Date of Insertion: Oct 12, 2016 A/P Problem List: (1) CVA (cerebral vascular accident) ICD Code: I63.9 Status: Acute (2) A-fib ICD Code: I48.91 Status: Chronic (3) DM (diabetes mellitus) ICD Code: E11.9 Status: Chronic Assessment and Plan 60-year-old male with past medical history of paroxysmal atrial fibrillation, hypertension, stage III a non-Hodgkin's lymphoma status post a chemotherapy last year. He came to the hospital with altered mental status, facial droop. Patient with significant deficit from CVA. - Acute on Chronic respiratory failure - Currently stable. Maintain trach/T piece. Pulmonary following. O2 sat > 92% . 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 Continue Keppra for seizure prophylaxis. reconsulted PT/OT per family request. -Need placement. Difficult. Appreciate case management assistance. - Clogged PEG tube on 10/14, 10/23, and again on 11/17. - PEG tube changed on 11/18/2016. - tube feedings Changed to Glucerna 1.0 at 50 ml per hour. juvena one pack BID. mix with 6 oz of water and flush into feeding tube. -continues to have diarrhea, c.diff and work up negative. - Continue Imodium 11/20/2016 - Atrial fibrillation -Continue rate control with Cardizem and metoprolol. Echocardiogram in November 2015 shows preserved ejection fraction. -Coumadin discontinued secondary to bleeding. Rate controlled. Continue aspirin and prophylactic heparin dose. - Decrease Cardizem frequency and reduce metoprolol from 50mg to 25mg. - History of non-Hodgkin's lymphoma - Status post brain biopsy on December 13 by neurosurgery. Pathology consistent with acute infarct without evidence of lymphoma. Oncology has signed Off - Diabetes mellitus -Hemoglobin A1c is 7. Monitor Accu-Cheks and cover with sliding scale insulin. Overall blood sugar continues well controlled. - Decubitus ulcer stage IV -Continue wound care, twice-daily dressing changes. Wound care recommendations. Continue pressure relief measures including turning and positioning. Patient's family has declined a diverting colostomy. Previous Wound culture growing Klebsiella. on Augmentin. Status post wide excision of sacral skin and biopsy of the cavity lining with debridement on 07/22/16. ID specialist recommended to continue on Amoxicillin and Cefepime for two months will be until the end of September or first days of October. - Gastric ulcer, reflux esophagitis - EGD on 07/30/16 showed gastric ulcers. Appreciate GI recommendations. Continue PPI. H&H stable. - Urine and Sputum culture growing Pseudomonas - Continue Zosyn. ID following. - Anemia Hemoglobin 9.4 stable DVT prophylaxis on Heparin Discharge Planning dc planning to SNF-no funding- SSI pending. Problem Qualifiers (1) DM (diabetes mellitus): Qualified Code: E11.9 - Type 2 diabetes mellitus without complications Birdie Leal DO November 20, 2016 16:48 (1) DM (diabetes mellitus): Qualified Code: E11.9 - Type 2 diabetes mellitus without complications Birdie Leal DO November 20, 2016 16:48
[2016-11-20] MEDS: PARoxetine HCL SUSP 20 MG/10 ML UDC PEG SCH (18:31)
[2016-11-21] VITALS (9 sets, daily range): BP systolic 100–140; BP diastolic 61–80; PULSE 64–106; RESP 18–22; TEMP 96–98.4; O2SAT 97–100
[2016-11-21] MEDS: SODIUM CHLOR 0.9% 1000 ML INJ 1,000 ML IV SCH ×3 (02:05→18:15)
[2016-11-21] MEDS: METOPROLOL TARTRATE 50 MG TAB PO SCH ×3 (02:05→21:16)
[2016-11-21] MEDS: DILTIAZEM HCL 30 MG TAB PEG SCH ×2 (02:05→12:43)
[2016-11-21] MEDS: NYSTATIN 100,000 U/GM PWD 15 GM BTL TOPICAL SCH ×3 (02:07→21:16)
[2016-11-21] MEDS: ACETIC ACID 0.25% SOLN 1000 ML IRR BTL IRRIGATION SCH ×4 (02:07→23:16)
[2016-11-21] MEDS: FREE WATER TUBE SCH ×7 (04:00→23:16)
[2016-11-21] MEDS: PIPERACIL-TAZO 3.375 GM PREMIX 50 ML IV SCH ×3 (04:40→16:25)
[2016-11-21] MEDS: INSULIN ASPART SUPPLEMENTAL SCALE SQ SCH (06:33)
[2016-11-21] MEDS: HEPARIN SODIUM - SQ 10,000 UNITS/ML VIAL SQ SCH ×3 (06:35→21:15)
[2016-11-21] MEDS: KETOCONAZOLE 2% CREAM 15 GM TOPICAL SCH ×2 (09:00→21:17)
[2016-11-21] MEDS: ARTIFICIAL TEARS OPTH SOLN 15 ML BTL EACH EYE SCH ×2 (09:00→21:16)
[2016-11-21] MEDS: SODIUM CHLORIDE 0.65% NASAL SPRAY 45 ML BTL NASAL SCH ×2 (09:00→21:16)
[2016-11-21] MEDS: BACITRACIN TOP OINT 15 GM TUBE TOP SCH ×2 (09:46→21:16)
[2016-11-21] MEDS: levETIRAcetam 500 MG/5 ML UDC TUBE SCH ×2 (09:47→21:15)
[2016-11-21] MEDS: ASPIRIN 325 MG TAB TUBE SCH (09:47)
[2016-11-21] MEDS: POTASSIUM CHLORIDE 25 MEQ EFFERVESCENT TAB TUBE SCH (09:47)
[2016-11-21] MEDS: PANTOPRAZOLE SODIUM 40 MG VIAL IV PUSH SCH ×2 (09:48→23:15)
--- NOTE | 2016-11-21 14:26 | HHI.PR ---
Subjective Remarks Follow up for left MCA stroke, respiratory failure. Per patient's mother, patient is doing better today. Remains non-verbal. Diarrhea is much improved. No fever, chills. Objective Vitals Vital Signs Date Time Temp Pulse Resp B/P Pulse Ox O2 Delivery O2 Flow Rate FiO2 11/21/16 12:20 96.6 85 20 100/61 100 11/21/16 09:02 98 T-piece 6.00 28 11/21/16 09:02 98 T-piece 6.00 28 11/21/16 08:20 96.2 84 20 129/76 97 11/21/16 08:10 79 11/21/16 04:00 97.4 64 18 126/73 99 11/21/16 00:00 97.3 84 18 124/75 98 11/20/16 22:26 95 T-piece 6.00 28 11/20/16 22:26 95 T-piece 6.00 28 11/20/16 20:00 97.4 87 18 106/61 95 11/20/16 18:39 85 11/20/16 16:23 98.5 78 18 101/69 99 I/O 11/20/16 11/20/16 11/20/16 11/21/16 11/21/16 11/21/16 07:00 15:00 23:00 07:00 15:00 23:00 Output Total 600 ml 2000 ml Balance -600 ml -2000 ml Output Urine Total 600 ml 2000 ml Result Diagram: 11/18/16 1135 11/18/16 1135 Objective Remarks GENERAL: Tracks with eyes. No verbal communication. SKIN: Warm and dry. HEAD: Normocephalic. EYES: No scleral icterus. No injection or drainage. NECK: Supple, trachea midline. No JVD or lymphadenopathy. CARDIOVASCULAR: Regular rate and rhythm without murmurs, gallops, or rubs. RESPIRATORY: Coarse breath sounds. No accessory muscle use. GASTROINTESTINAL: Abdomen soft, non-tender, nondistended. MUSCULOSKELETAL: No cyanosis, or edema. BACK: Nontender without obvious deformity. No CVA tenderness. Procedures 01/02/16 PEG placement 01/02/16 tracheostomy 07/22/2016 Wide excision of sacral skin wound, biopsy of the cavity lining and debridement. PEG tube replacement 07/29/16 VAC changes- M-W-F 10/23- GJ tube replacement Date of Insertion: Oct 12, 2016 A/P Problem List: (1) CVA (cerebral vascular accident) ICD Code: I63.9 Status: Acute (2) A-fib ICD Code: I48.91 Status: Chronic (3) DM (diabetes mellitus) ICD Code: E11.9 Status: Chronic Assessment and Plan 60-year-old male with past medical history of paroxysmal atrial fibrillation, hypertension, stage III a non-Hodgkin's lymphoma status post a chemotherapy last year. He came to the hospital with altered mental status, facial droop. Patient with significant deficit from CVA. - Acute on Chronic respiratory failure - Currently stable. Maintain trach/T piece. Pulmonary following. O2 sat > 92% . 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 Continue Keppra for seizure prophylaxis. reconsulted PT/OT per family request. -Need placement. Difficult. Appreciate case management assistance. - Clogged PEG tube on 10/14, 10/23, and again on 11/17. - PEG tube changed on 11/18/2016. - tube feedings Changed to Glucerna 1.0 at 50 ml per hour. juvena one pack BID. mix with 6 oz of water and flush into feeding tube. -continues to have diarrhea, c.diff and work up negative. - Continue Imodium 11/20/2016 - Remove rectal tube. - Atrial fibrillation -Continue rate control with Cardizem and metoprolol. Echocardiogram in November 2015 shows preserved ejection fraction. -Coumadin discontinued secondary to bleeding. Rate controlled. Continue aspirin and prophylactic heparin dose. - Decrease Cardizem frequency and reduce metoprolol from 50mg to 25mg. - History of non-Hodgkin's lymphoma - Status post brain biopsy on December 13 by neurosurgery. Pathology consistent with acute infarct without evidence of lymphoma. Oncology has signed Off - Diabetes mellitus -Hemoglobin A1c is 7. Monitor Accu-Cheks and cover with sliding scale insulin. Overall blood sugar continues well controlled. - Decubitus ulcer stage IV -Continue wound care, twice-daily dressing changes. Wound care recommendations. Continue pressure relief measures including turning and positioning. Patient's family has declined a diverting colostomy. Previous Wound culture growing Klebsiella. on Augmentin. Status post wide excision of sacral skin and biopsy of the cavity lining with debridement on 07/22/16. ID specialist recommended to continue on Amoxicillin and Cefepime for two months will be until the end of September or first days of October. - Gastric ulcer, reflux esophagitis - EGD on 07/30/16 showed gastric ulcers. Appreciate GI recommendations. Continue PPI. H&H stable. - Urine and Sputum culture growing Pseudomonas - Continue Zosyn. ID following. - Anemia Hemoglobin 9.4 stable DVT prophylaxis on Heparin Discharge Planning dc planning to SNF-no funding- SSI pending. Problem Qualifiers (1) DM (diabetes mellitus): Qualified Code: E11.9 - Type 2 diabetes mellitus without complications Birdie Leal DO November 21, 2016 14:26
--- NOTE | 2016-11-21 16:29 | HHI.PR ---
Subjective Remarks opens eyes on o2 , o2 SAT 98 ON T PIECE NO DITRESS TRACH. OK now in ICU ? ASPIRATION, NOW STABLE CXRAY clear Objective Vital Signs Date Time Temp Pulse Resp B/P Pulse Ox O2 Delivery O2 Flow Rate FiO2 11/21/16 12:20 96.6 85 20 100/61 100 11/21/16 09:02 98 T-piece 6.00 28 11/21/16 09:02 98 T-piece 6.00 28 11/21/16 08:20 96.2 84 20 129/76 97 11/21/16 08:10 79 11/21/16 04:00 97.4 64 18 126/73 99 11/21/16 00:00 97.3 84 18 124/75 98 11/20/16 22:26 95 T-piece 6.00 28 11/20/16 22:26 95 T-piece 6.00 28 11/20/16 20:00 97.4 87 18 106/61 95 11/20/16 18:39 85 I/O 11/20/16 11/20/16 11/20/16 11/21/16 11/21/16 11/21/16 07:00 15:00 23:00 07:00 15:00 23:00 Output Total 600 ml 2000 ml Balance -600 ml -2000 ml Output Urine Total 600 ml 2000 ml Result Diagram: 11/18/16 1135 11/18/16 1135 Procedures 01/02/16 PEG placement 01/02/16 tracheostomy 07/22/2016 Wide excision of sacral skin wound, biopsy of the cavity lining and debridement. PEG tube replacement 07/29/16 Objective Remarks GENERAL: SKIN: Warm and dry. HEAD: Atraumatic. Normocephalic. EYES: Pupils equal and round. No scleral icterus. No injection or drainage. ENT: No nasal bleeding or discharge. Mucous membranes pink and moist. NECK: Trachea midline. No JVD. TRACH. OK CARDIOVASCULAR: Regular rate and rhythm. RESPIRATORY: No accessory muscle use. Clear to auscultation. Breath sounds equal bilaterally. GASTROINTESTINAL: Abdomen soft, non-tender, nondistended. Hepatic and splenic margins not palpable. MUSCULOSKELETAL: Extremities without clubbing, cyanosis, or edema. No obvious deformities. NEUROLOGICAL: Awake and alert. No obvious cranial nerve deficits. Motor grossly within normal limits. Five out of 5 muscle strength in the arms and legs. Normal speech. PSYCHIATRIC: Appropriate mood and affect; insight and judgment normal. Assessment and Plan Assessment and Plan impression respiratory failure CVA S/P TRACHEOSTOMY PLAN O2 NEEDED PULM. TOILET Brandon Taylor MD November 21, 2016 16:29
[2016-11-21] MEDS: AZTREONAM INJ 2,000 MG in SODIUM CHLORIDE 0.9% INJ 100 ML IV SCH ×2 (18:32→23:15)
[2016-11-21] MEDS: PARoxetine HCL SUSP 20 MG/10 ML UDC PEG SCH (18:33)
[2016-11-22] VITALS (9 sets, daily range): BP systolic 108–128; BP diastolic 66–78; PULSE 75–96; RESP 19–20; TEMP 96.1–98.3; O2SAT 96–100
[2016-11-22] MEDS: DILTIAZEM HCL 30 MG TAB PEG SCH ×2 (01:10→12:18)
[2016-11-22] MEDS: FREE WATER TUBE SCH ×6 (03:51→23:43)
[2016-11-22] MEDS: ACETIC ACID 0.25% SOLN 1000 ML IRR BTL IRRIGATION SCH ×3 (06:31→21:13)
[2016-11-22] MEDS: HEPARIN SODIUM - SQ 10,000 UNITS/ML VIAL SQ SCH ×3 (06:31→21:12)
[2016-11-22] MEDS: AZTREONAM INJ 2,000 MG in SODIUM CHLORIDE 0.9% INJ 100 ML IV SCH ×4 (06:31→23:43)
[2016-11-22] MEDS: INSULIN ASPART SUPPLEMENTAL SCALE SQ SCH (06:32)
[2016-11-22] MEDS: SODIUM CHLOR 0.9% 1000 ML INJ 1,000 ML IV SCH ×2 (06:32→14:15)
--- NOTE | 2016-11-22 08:17 | HHI.PR ---
Subjective Remarks opens eyes on o2 , o2 SAT 97 ON T PIECE NO DITRESS TRACH. OK Objective GENERAL: SKIN: Warm and dry. HEAD: Atraumatic. Normocephalic. EYES: Pupils equal and round. No scleral icterus. No injection or drainage. ENT: No nasal bleeding or discharge. Mucous membranes pink and moist. NECK: Trachea midline. No JVD. trcheostomy in place CARDIOVASCULAR: Regular rate and rhythm. RESPIRATORY: No accessory muscle use. Clear to auscultation. Breath sounds equal bilaterally. GASTROINTESTINAL: Abdomen soft, non-tender, nondistended. Hepatic and splenic margins not palpable. MUSCULOSKELETAL: Extremities without clubbing, cyanosis, or edema. No obvious deformities. NEUROLOGICAL: Awake quadriplegic PSYCHIATRIC: Appropriate mood and affect; insight and judgment normal. Vital Signs Date Time Temp Pulse Resp B/P Pulse Ox O2 Delivery O2 Flow Rate FiO2 11/22/16 08:06 87 11/22/16 04:00 97.6 89 20 128/78 98 11/22/16 01:39 97.1 96 20 111/66 98 11/22/16 01:22 100 T-Piece 28 11/21/16 23:20 84 11/21/16 20:00 98.4 106 18 140/80 99 11/21/16 16:20 96.0 80 22 100/62 99 11/21/16 12:20 96.6 85 20 100/61 100 11/21/16 09:02 98 T-piece 6.00 28 11/21/16 09:02 98 T-piece 6.00 28 11/21/16 08:20 96.2 84 20 129/76 97 I/O 11/21/16 11/21/16 11/21/16 11/22/16 11/22/16 11/22/16 07:00 15:00 23:00 07:00 15:00 23:00 Intake Total 1832 ml Output Total 2000 ml 800 ml 1000 ml Balance -2000 ml 1032 ml -1000 ml IV Total 1632 ml Other 200 ml Output Urine Total 2000 ml 800 ml 1000 ml Result Diagram: 11/18/16 1135 11/18/16 1135 Procedures 01/02/16 PEG placement 01/02/16 tracheostomy 07/22/2016 Wide excision of sacral skin wound, biopsy of the cavity lining and debridement. PEG tube replacement 07/29/16 Objective Remarks GENERAL: SKIN: Warm and dry. HEAD: Atraumatic. Normocephalic. EYES: Pupils equal and round. No scleral icterus. No injection or drainage. ENT: No nasal bleeding or discharge. Mucous membranes pink and moist. NECK: Trachea midline. No JVD. TRACH. [place] CARDIOVASCULAR: Regular rate and rhythm. RESPIRATORY: No accessory muscle use. Clear to auscultation. Breath sounds equal bilaterally. GASTROINTESTINAL: Abdomen soft, non-tender, nondistended. Hepatic and splenic margins not palpable. MUSCULOSKELETAL: Extremities without clubbing, cyanosis, or edema. No obvious deformities. NEUROLOGICAL: Awake and alert. No obvious cranial nerve deficits. Motor grossly within normal limits. Five out of 5 muscle strength in the arms and legs. Normal speech. PSYCHIATRIC: Appropriate mood and affect; insight and judgment normal. Assessment and Plan Assessment and Plan impression respiratory failure CVA S/P TRACHEOSTOMY PLAN O2 NEEDED PULM. TOILET Brandon Taylor MD November 22, 2016 08:17
[2016-11-22] MEDS: POTASSIUM CHLORIDE 25 MEQ EFFERVESCENT TAB TUBE SCH (08:35)
[2016-11-22] MEDS: ASPIRIN 325 MG TAB TUBE SCH (08:36)
[2016-11-22] MEDS: METOPROLOL TARTRATE 50 MG TAB PO SCH ×2 (08:36→21:11)
[2016-11-22] MEDS: levETIRAcetam 500 MG/5 ML UDC TUBE SCH ×2 (08:37→21:12)
[2016-11-22] MEDS: PANTOPRAZOLE SODIUM 40 MG VIAL IV PUSH SCH ×2 (08:37→21:12)
[2016-11-22] MEDS: KETOCONAZOLE 2% CREAM 15 GM TOPICAL SCH ×2 (08:38→21:12)
[2016-11-22] MEDS: BACITRACIN TOP OINT 15 GM TUBE TOP SCH ×2 (08:38→21:13)
[2016-11-22] MEDS: SODIUM CHLORIDE 0.65% NASAL SPRAY 45 ML BTL NASAL SCH ×2 (08:39→21:10)
[2016-11-22] MEDS: NYSTATIN 100,000 U/GM PWD 15 GM BTL TOPICAL SCH ×2 (08:39→21:12)
[2016-11-22] MEDS: ARTIFICIAL TEARS OPTH SOLN 15 ML BTL EACH EYE SCH ×2 (08:39→21:10)
--- NOTE | 2016-11-22 16:09 | HHI.PR ---
Subjective Remarks Follow up for left MCA stroke, respiratory failure. Mr. Flores remains non- verbal. No acute concerns from mother at bedside. No fever. Objective Vitals Vital Signs Date Time Temp Pulse Resp B/P Pulse Ox O2 Delivery O2 Flow Rate FiO2 11/22/16 12:33 97.9 78 20 110/78 98 11/22/16 10:00 99 T-piece 6.00 35 11/22/16 08:30 98.3 87 20 115/73 96 11/22/16 08:06 87 11/22/16 04:00 97.6 89 20 128/78 98 11/22/16 01:39 97.1 96 20 111/66 98 11/22/16 01:22 100 T-Piece 28 11/21/16 23:20 84 11/21/16 20:00 98.4 106 18 140/80 99 11/21/16 16:20 96.0 80 22 100/62 99 I/O 11/21/16 11/21/16 11/21/16 11/22/16 11/22/16 11/22/16 07:00 15:00 23:00 07:00 15:00 23:00 Intake Total 1832 ml Output Total 2000 ml 800 ml 1000 ml 700 ml Balance -2000 ml 1032 ml -1000 ml -700 ml IV Total 1632 ml Other 200 ml Output Urine Total 2000 ml 800 ml 1000 ml 700 ml # Bowel Movements 0 Result Diagram: 11/18/16 1135 11/18/16 1135 Imaging Last Impressions Chest X-Ray 11/18/16 1014 Signed Impressions: Service Date/Time: Friday, November 18, 2016 10:14 - CONCLUSION: Lungs are clear. Mikie Vargas MD Tube Change 11/18/16 0000 Signed Impressions: Service Date/Time: Friday, November 18, 2016 17:38 - CONCLUSION: Uncomplicated gastrojejunostomy tube exchange as above. Jonel Jones Jr., MD Abdomen X-Ray 08/31/16 0000 Signed Impressions: Service Date/Time: Wednesday, August 31, 2016 16:36 - CONCLUSION: 1. No acute findings. Mild constipation. Durga Dotson MD Abdomen/Pelvis CT 04/12/16 0000 Signed Impressions: Service Date/Time: Tuesday, April 12, 2016 20:52 - CONCLUSION: 1. 6.4 cm necrotic mass or abscess in the soft tissues posteriorly just below the sacrum associated with some bony destructive change of the lower most sacrum and coccyx with inflammatory changes extending into the ischiorectal fossa and into the presacral retroperitoneum predominantly on the left side. There is associated fairly marked mural thickening of the anal verge and rectum. 2. There is gastrostomy and Arevalo catheter present. Stable abdominal aortic aneurysm. Durga Dotson MD Head Magnetic Resonance Angiography 03/05/16 0000 Signed Impressions: Service Date/Time: Saturday, March 05, 2016 09:26 - CONCLUSION: Persistent high-grade subtotal occlusive stenotic lesions in the distal right vertebral artery and proximal basilar artery with significant improvement in flow and recanalization following initial presentation of thrombosis. Stable interstitial circulation without significant stenosis. 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 There is decreasing restricted diffusion and increasing loss of volume characteristic of a subacute to chronic infarct. No evidence of acute infarct, acute hemorrhage mass or edema. Ernesto Kulkarni MD Head CT 01/16/16 0000 Signed Impressions: Service Date/Time: Saturday, January 16, 2016 10:51 - CONCLUSION: No extensive low density in the brainstem colin more prominent in the right the left extending into the right middle cerebellar peduncle consistent with brainstem infarct nonhemorrhagic acute Wellington West MD Neck Magnetic Resonance Angiography 12/22/15 1445 Signed Impressions: Service Date/Time: Tuesday, December 22, 2015 09:22 - CONCLUSION: Variant origin of the left vertebral artery from the aortic arch. No evidence of carotid stenosis. Glen Zamora MD Head/Brain Mag Res Venography 12/22/15 0000 Signed Impressions: Service Date/Time: Tuesday, December 22, 2015 09:22 - CONCLUSION: Normal MRV. Jonel Jones Jr., MD Objective Remarks GENERAL: Tracks with eyes. No verbal communication. SKIN: Warm and dry. HEAD: Normocephalic. EYES: No scleral icterus. No injection or drainage. NECK: Supple, trachea midline. No JVD or lymphadenopathy. CARDIOVASCULAR: Regular rate and rhythm without murmurs, gallops, or rubs. RESPIRATORY: Coarse breath sounds. No accessory muscle use. GASTROINTESTINAL: Abdomen soft, non-tender, nondistended. MUSCULOSKELETAL: No cyanosis, or edema. BACK: Nontender without obvious deformity. No CVA tenderness. Procedures 01/02/16 PEG placement 01/02/16 tracheostomy 07/22/2016 Wide excision of sacral skin wound, biopsy of the cavity lining and debridement. PEG tube replacement 07/29/16 VAC changes- M-W-F 10/23- GJ tube replacement Date of Insertion: Oct 12, 2016 A/P Problem List: (1) CVA (cerebral vascular accident) ICD Code: I63.9 Status: Acute (2) A-fib ICD Code: I48.91 Status: Chronic (3) DM (diabetes mellitus) ICD Code: E11.9 Status: Chronic Assessment and Plan 60-year-old male with past medical history of paroxysmal atrial fibrillation, hypertension, stage III a non-Hodgkin's lymphoma status post a chemotherapy last year. He came to the hospital with altered mental status, facial droop. Patient with significant deficit from CVA. - Acute on Chronic respiratory failure - Currently stable. Maintain trach/T piece. Pulmonary following. O2 sat > 92% . - Will add mucomyst PRN for mucolysis. 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 Continue Keppra for seizure prophylaxis. reconsulted PT/OT per family request. -Need placement. Difficult. Appreciate case management assistance. - Clogged PEG tube on 10/14, 10/23, and again on 11/17. - PEG tube changed on 11/18/2016. - tube feedings Changed to Glucerna 1.0 at 50 ml per hour. juvena one pack BID. mix with 6 oz of water and flush into feeding tube. -continues to have diarrhea, c.diff and work up negative. - Continue Imodium 11/20/2016 - Atrial fibrillation -Continue rate control with Cardizem and metoprolol. Echocardiogram in November 2015 shows preserved ejection fraction. -Coumadin discontinued secondary to bleeding. Rate controlled. Continue aspirin and prophylactic heparin dose. - Decrease Cardizem frequency and reduce metoprolol from 50mg to 25mg. - History of non-Hodgkin's lymphoma - Status post brain biopsy on December 13 by neurosurgery. Pathology consistent with acute infarct without evidence of lymphoma. Oncology has signed Off - Diabetes mellitus -Hemoglobin A1c is 7. Monitor Accu-Cheks and cover with sliding scale insulin. Overall blood sugar continues well controlled. - Decubitus ulcer stage IV -Continue wound care, twice-daily dressing changes. Wound care recommendations. Continue pressure relief measures including turning and positioning. Patient's family has declined a diverting colostomy. Previous Wound culture growing Klebsiella. on Augmentin. Status post wide excision of sacral skin and biopsy of the cavity lining with debridement on 07/22/16. ID specialist recommended to continue on Amoxicillin and Cefepime for two months will be until the end of September or first days of October. - Gastric ulcer, reflux esophagitis - EGD on 07/30/16 showed gastric ulcers. Appreciate GI recommendations. Continue PPI. H&H stable. - Urine and Sputum culture growing Pseudomonas - Continue Zosyn. ID following. - Anemia Hemoglobin 9.4 stable DVT prophylaxis on Heparin Discharge Planning dc planning to SNF-no funding- SSI pending. Problem Qualifiers (1) DM (diabetes mellitus): Qualified Code: E11.9 - Type 2 diabetes mellitus without complications Birdie eLal DO November 22, 2016 4:09 pm
[2016-11-22] MEDS: PARoxetine HCL SUSP 20 MG/10 ML UDC PEG SCH (18:05)
--- NOTE | 2016-11-22 22:12 | HHI.IDPN ---
Subjective Subjective Remarks delaeyed entry pt seen by me today around 4 pm afebrile having diarrhea having intermitent dessats episodes + coughing Antibiotics azactam Lines Peripheral IV Past Medical History Hypertension. Stage III non-Hodgkin's lymphoma. Diabetes mellitus. Paroxysmal atrial fibrillation. Brain biopsy in Nov, 2015. History of left arm surgery. 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 Vital Signs Date Time Temp Pulse Resp B/P Pulse Ox O2 Delivery O2 Flow Rate FiO2 11/22/16 20:29 97.2 84 19 108/69 100 11/22/16 17:40 96.1 75 20 110/69 100 11/22/16 12:33 97.9 78 20 110/78 98 11/22/16 10:00 99 T-piece 6.00 35 11/22/16 08:30 98.3 87 20 115/73 96 11/22/16 08:06 87 11/22/16 04:00 97.6 89 20 128/78 98 11/22/16 01:39 97.1 96 20 111/66 98 11/22/16 01:22 100 T-Piece 28 11/21/16 23:20 84 11/21/16 11/21/16 11/22/16 15:00 23:00 07:00 Intake Total 1832 ml Output Total 800 ml 1000 ml Balance 1032 ml -1000 ml IV Total 1632 ml Other 200 ml Output Urine Total 800 ml 1000 ml . GRAM STAIN Final 11/19/16-0821 FEW WBC FEW GRAM NEGATIVE RODS RARE PLEOMORPHIC GRAM POSITIVE BRODIE SPUTUM CULTURE Final 11/21/16-1439 HEAVY GROWTH PSEUDOMONAS AERUGINOSA LIGHT GROWTH KLEBSIELLA PNEUMONIAE HEAVY GROWTH NORMAL RESPIRATORY ROSEMARIE PSEUD AERU KLE PNEUMO M.I.C. RX M.I.C. RX --------- --- --------- --- AMOXICILLIN/K CLAVULANATE >16/8 R PIPERCILLIN/TAZOBACTAM <16 S >64 R AMPICILLIN/SULBACTAM >16/8 R CEFAZOLIN >16 R CEFUROXIME 8 S CEFTRIAXONE <1 S CEFTAZIDIME 4 S <1 S CEFEPIME 8 S <2 S AZTREONAM 8 S <4 S ERTAPENEM <0.5 S IMIPENEM <1 S <1 S GENTAMICIN >8 R <4 S TOBRAMYCIN >8 R <4 S TETRACYCLINE <4 S TRIMETH/SULFA <2/38 S LEVOFLOXACIN >4 R <2 S Imaging Last Impressions Chest X-Ray 11/18/16 1014 Signed Impressions: Service Date/Time: Friday, November 18, 2016 10:14 - CONCLUSION: Lungs are clear. Mikie Vargas MD Tube Change 11/18/16 0000 Signed Impressions: Service Date/Time: Friday, November 18, 2016 17:38 - CONCLUSION: Uncomplicated gastrojejunostomy tube exchange as above. Jonel Jones Jr., MD Abdomen X-Ray 08/31/16 0000 Signed Impressions: Service Date/Time: Wednesday, August 31, 2016 16:36 - CONCLUSION: 1. No acute findings. Mild constipation. Durga Dotson MD Abdomen/Pelvis CT 04/12/16 0000 Signed Impressions: Service Date/Time: Tuesday, April 12, 2016 20:52 - CONCLUSION: 1. 6.4 cm necrotic mass or abscess in the soft tissues posteriorly just below the sacrum associated with some bony destructive change of the lower most sacrum and coccyx with inflammatory changes extending into the ischiorectal fossa and into the presacral retroperitoneum predominantly on the left side. There is associated fairly marked mural thickening of the anal verge and rectum. 2. There is gastrostomy and Lopez catheter present. Stable abdominal aortic aneurysm. Durga Dotson MD Head Magnetic Resonance Angiography 03/05/16 0000 Signed Impressions: Service Date/Time: Saturday, March 05, 2016 09:26 - CONCLUSION: Persistent high-grade subtotal occlusive stenotic lesions in the distal right vertebral artery and proximal basilar artery with significant improvement in flow and recanalization following initial presentation of thrombosis. Stable interstitial circulation without significant stenosis. 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 There is decreasing restricted diffusion and increasing loss of volume characteristic of a subacute to chronic infarct. No evidence of acute infarct, acute hemorrhage mass or edema. Ernesto Kulkarni MD Head CT 01/16/16 0000 Signed Impressions: Service Date/Time: Saturday, January 16, 2016 10:51 - CONCLUSION: No extensive low density in the brainstem colin more prominent in the right the left extending into the right middle cerebellar peduncle consistent with brainstem infarct nonhemorrhagic acute Wellington West MD Neck Magnetic Resonance Angiography 12/22/15 1445 Signed Impressions: Service Date/Time: Tuesday, December 22, 2015 09:22 - CONCLUSION: Variant origin of the left vertebral artery from the aortic arch. No evidence of carotid stenosis. Glen Zamora MD Head/Brain Mag Res Venography 12/22/15 0000 Signed Impressions: Service Date/Time: Tuesday, December 22, 2015 09:22 - CONCLUSION: Normal MRV. Jonel Jones Jr., MD Physical Exam GENERAL: opens eyes when stimulated, not focusing or tracking. NAD. SKIN: Warm and dry. No generalized rash HEENT: [place] conjunctiva. . No scleral icterus. No injection or drainage. Mucous membranes pink and moist. NECK: Tracheostomy site looks okay. no secretions in tubing seen CARDIOVASCULAR: Regular rate and rhythm. No murmur or rub. RESPIRATORY: Decreased breath sounds at the bases. diffuse b/l rhonchi ABDOMEN: Soft, obese, non-tender ( no reaction to palpation), mildly to moderately distended. No guarding. No organomegaly. PEG site looks okay. EXTREMITIES: No clubbing, cyanosis, or edema. No joint effusions. NEUROLOGICAL: Opens eyes when stimulated, no interaction. He is not focusing or tracking. PSYCH: Unable to assess ; lopez in place, urine looks fairly clear LINE: Peripheral IV with no evidence of infection Assessment & Plan Remarks IMPRESSION Recurrent fevers, etiology? no fevers x 1 week UTI PSAE New diarrhea, C.diff negative One (+) BC 03/03 GNR, did not grow on solid media, no other (+) BC CVA, with significant neurologic sequela Hx NHL Resp distress this am - CXR clear Tracheo bronchitis vs early PNA - growing pseudomonas persistent diarrhea;: resolved RECOMMENDATION cont azactam x 7 days fu clinicaly OK to use antimotlity agents to control diarrhea dw RN dw @ b/s Violetta Alvarez MD November 22, 2016 22:12
[2016-11-23] VITALS (9 sets, daily range): BP systolic 98–126; BP diastolic 18–88; PULSE 71–89; RESP 18–19; TEMP 95.9–97.9; O2SAT 96–100
[2016-11-23] MEDS: DILTIAZEM HCL 30 MG TAB PEG SCH ×2 (00:48→12:18)
[2016-11-23] MEDS: SODIUM CHLOR 0.9% 1000 ML INJ 1,000 ML IV SCH ×3 (00:50→20:15)
[2016-11-23] MEDS: FREE WATER TUBE SCH ×5 (04:44→20:00)
[2016-11-23] MEDS: AZTREONAM INJ 2,000 MG in SODIUM CHLORIDE 0.9% INJ 100 ML IV SCH ×3 (05:50→18:23)
[2016-11-23] MEDS: ACETAMINOPHEN/HYDROcodone 325 MG/5 MG TAB PO PRN ×2 (05:50→21:43)
[2016-11-23] MEDS: HEPARIN SODIUM - SQ 10,000 UNITS/ML VIAL SQ SCH ×3 (05:50→21:43)
[2016-11-23] MEDS: INSULIN ASPART SUPPLEMENTAL SCALE SQ SCH (05:51)
[2016-11-23] MEDS: ACETIC ACID 0.25% SOLN 1000 ML IRR BTL IRRIGATION SCH ×3 (05:51→21:43)
[2016-11-23] MEDS: POTASSIUM CHLORIDE 25 MEQ EFFERVESCENT TAB TUBE SCH (07:54)
[2016-11-23] MEDS: ASPIRIN 325 MG TAB TUBE SCH (07:54)
[2016-11-23] MEDS: NYSTATIN 100,000 U/GM PWD 15 GM BTL TOPICAL SCH ×2 (07:55→21:00)
[2016-11-23] MEDS: levETIRAcetam 500 MG/5 ML UDC TUBE SCH ×2 (07:55→21:43)
[2016-11-23] MEDS: METOPROLOL TARTRATE 50 MG TAB PO SCH ×2 (07:55→21:42)
[2016-11-23] MEDS: BACITRACIN TOP OINT 15 GM TUBE TOP SCH ×2 (07:56→21:00)
[2016-11-23] MEDS: SODIUM CHLORIDE 0.65% NASAL SPRAY 45 ML BTL NASAL SCH ×2 (07:56→21:00)
[2016-11-23] MEDS: ARTIFICIAL TEARS OPTH SOLN 15 ML BTL EACH EYE SCH ×2 (07:56→21:00)
[2016-11-23] MEDS: KETOCONAZOLE 2% CREAM 15 GM TOPICAL SCH ×2 (09:00→21:00)
--- NOTE | 2016-11-23 10:02 | HHI.PR ---
Subjective Remarks Follow up for left MCA stroke, respiratory failure. Patient appears to be more alert today. Remains nonverbal. Follows limited commands. Afebrile. Objective Vitals Vital Signs Date Time Temp Pulse Resp B/P Pulse Ox O2 Delivery O2 Flow Rate FiO2 11/23/16 08:00 97.7 76 18 117/18 100 11/23/16 05:37 97.9 81 19 119/79 98 11/23/16 00:11 97.9 89 19 112/69 98 11/23/16 00:00 76 11/22/16 20:39 100 T-piece 6.00 35 11/22/16 20:39 100 T-piece 6.00 35 11/22/16 20:29 97.2 84 19 108/69 100 11/22/16 17:40 96.1 75 20 110/69 100 11/22/16 12:33 97.9 78 20 110/78 98 I/O 11/22/16 11/22/16 11/22/16 11/23/16 11/23/16 11/23/16 07:00 15:00 23:00 07:00 15:00 23:00 Intake Total 2305 ml 1241 ml Output Total 1000 ml 700 ml 675 ml 1100 ml Balance -1000 ml -700 ml 1630 ml 141 ml IV Total 1546 ml 345 ml Tube Feeding 559 ml 496 ml Other 200 ml 400 ml Output Urine Total 1000 ml 700 ml 675 ml 1100 ml # Bowel Movements 0 Imaging Last Impressions Chest X-Ray 11/18/16 1014 Signed Impressions: Service Date/Time: Friday, November 18, 2016 10:14 - CONCLUSION: Lungs are clear. Mikie Vargas MD Tube Change 11/18/16 0000 Signed Impressions: Service Date/Time: Friday, November 18, 2016 17:38 - CONCLUSION: Uncomplicated gastrojejunostomy tube exchange as above. Jonel Jones Jr., MD Abdomen X-Ray 08/31/16 0000 Signed Impressions: Service Date/Time: Wednesday, August 31, 2016 16:36 - CONCLUSION: 1. No acute findings. Mild constipation. Durga Dotson MD Abdomen/Pelvis CT 04/12/16 0000 Signed Impressions: Service Date/Time: Tuesday, April 12, 2016 20:52 - CONCLUSION: 1. 6.4 cm necrotic mass or abscess in the soft tissues posteriorly just below the sacrum associated with some bony destructive change of the lower most sacrum and coccyx with inflammatory changes extending into the ischiorectal fossa and into the presacral retroperitoneum predominantly on the left side. There is associated fairly marked mural thickening of the anal verge and rectum. 2. There is gastrostomy and Arevalo catheter present. Stable abdominal aortic aneurysm. Durga Dotson MD Head Magnetic Resonance Angiography 03/05/16 0000 Signed Impressions: Service Date/Time: Saturday, March 05, 2016 09:26 - CONCLUSION: Persistent high-grade subtotal occlusive stenotic lesions in the distal right vertebral artery and proximal basilar artery with significant improvement in flow and recanalization following initial presentation of thrombosis. Stable interstitial circulation without significant stenosis. 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 There is decreasing restricted diffusion and increasing loss of volume characteristic of a subacute to chronic infarct. No evidence of acute infarct, acute hemorrhage mass or edema. Ernesto Kulkarni MD Head CT 01/16/16 0000 Signed Impressions: Service Date/Time: Saturday, January 16, 2016 10:51 - CONCLUSION: No extensive low density in the brainstem colin more prominent in the right the left extending into the right middle cerebellar peduncle consistent with brainstem infarct nonhemorrhagic acute Wellington West MD Neck Magnetic Resonance Angiography 12/22/15 1445 Signed Impressions: Service Date/Time: Tuesday, December 22, 2015 09:22 - CONCLUSION: Variant origin of the left vertebral artery from the aortic arch. No evidence of carotid stenosis. Glen Zamora MD Head/Brain Mag Res Venography 12/22/15 0000 Signed Impressions: Service Date/Time: Tuesday, December 22, 2015 09:22 - CONCLUSION: Normal MRV. Jonel Jones Jr., MD Objective Remarks GENERAL: Tracks with eyes. No verbal communication. SKIN: Warm and dry. HEAD: Normocephalic. EYES: No scleral icterus. No injection or drainage. NECK: Supple, trachea midline. No JVD or lymphadenopathy. CARDIOVASCULAR: Regular rate and rhythm without murmurs, gallops, or rubs. RESPIRATORY: Coarse breath sounds. No accessory muscle use. GASTROINTESTINAL: Abdomen soft, non-tender, nondistended. MUSCULOSKELETAL: No cyanosis, or edema. BACK: Nontender without obvious deformity. No CVA tenderness. Procedures 01/02/16 PEG placement 01/02/16 tracheostomy 07/22/2016 Wide excision of sacral skin wound, biopsy of the cavity lining and debridement. PEG tube replacement 07/29/16 VAC changes- M-W-F 10/23- GJ tube replacement Date of Insertion: Oct 12, 2016 A/P Problem List: (1) CVA (cerebral vascular accident) ICD Code: I63.9 Status: Acute (2) A-fib ICD Code: I48.91 Status: Chronic (3) DM (diabetes mellitus) ICD Code: E11.9 Status: Chronic Assessment and Plan 60-year-old male with past medical history of paroxysmal atrial fibrillation, hypertension, stage III a non-Hodgkin's lymphoma status post a chemotherapy last year. He came to the hospital with altered mental status, facial droop. Patient with significant deficit from CVA. - Acute on Chronic respiratory failure - Currently stable. Maintain trach/T piece. Pulmonary following. O2 sat > 92% . - We'll continue Mucomyst scheduled for 5 days. Discussed with RN and respiratory therapist. 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 Continue Keppra for seizure prophylaxis. reconsulted PT/OT per family request. -Need placement. Difficult. Appreciate case management assistance. - Clogged PEG tube on 10/14, 10/23, and again on 11/17. - PEG tube changed on 11/18/2016. - tube feedings Changed to Glucerna 1.0 at 50 ml per hour. juvena one pack BID. mix with 6 oz of water and flush into feeding tube. -continues to have diarrhea, c.diff and work up negative. - Continue Imodium 11/20/2016 - Atrial fibrillation -Continue rate control with Cardizem and metoprolol. Echocardiogram in November 2015 shows preserved ejection fraction. -Coumadin discontinued secondary to bleeding. Rate controlled. Continue aspirin and prophylactic heparin dose. - Decreased Cardizem frequency and reduced metoprolol from 50mg to 25mg. - History of non-Hodgkin's lymphoma - Status post brain biopsy on December 13 by neurosurgery. Pathology consistent with acute infarct without evidence of lymphoma. Oncology has signed Off - Diabetes mellitus -Hemoglobin A1c is 7. Monitor Accu-Cheks and cover with sliding scale insulin. Overall blood sugar continues well controlled. - Decubitus ulcer stage IV -Continue wound care, twice-daily dressing changes. Wound care recommendations. Continue pressure relief measures including turning and positioning. Patient's family has declined a diverting colostomy. Previous Wound culture growing Klebsiella. on Augmentin. Status post wide excision of sacral skin and biopsy of the cavity lining with debridement on 07/22/16. ID specialist recommended to continue on Amoxicillin and Cefepime for two months will be until the end of September or first days of October. - Gastric ulcer, reflux esophagitis - EGD on 07/30/16 showed gastric ulcers. Appreciate GI recommendations. Continue PPI. H&H stable. - Urine and Sputum culture growing Pseudomonas - Continue Zosyn. ID following. - Anemia Hemoglobin 9.4 stable DVT prophylaxis on Heparin Discharge Planning dc planning to SNF-no funding- SSI pending. Problem Qualifiers (1) DM (diabetes mellitus): Qualified Code: E11.9 - Type 2 diabetes mellitus without complications Birdie Leal DO November 23, 2016 10:02 am
[2016-11-23] MEDS: RESP: LEVALBUTEROL HYDROCHLORIDE 0.63 MG/3 ML NEB (PRN) NEB ×2 (10:09→17:10)
[2016-11-23] MEDS: PANTOPRAZOLE SODIUM 40 MG VIAL IV PUSH SCH ×2 (10:34→21:43)
[2016-11-23] MEDS: RESP: ACETYLCYSTEINE 10% 30 ML NEB NEB SCH (17:09)
[2016-11-23] MEDS: PARoxetine HCL SUSP 20 MG/10 ML UDC PEG SCH (18:23)
[2016-11-24] VITALS (9 sets, daily range): BP systolic 103–123; BP diastolic 66–77; PULSE 79–89; RESP 16–23; TEMP 96.6–98.4; O2SAT 95–100
[2016-11-24] MEDS: AZTREONAM INJ 2,000 MG in SODIUM CHLORIDE 0.9% INJ 100 ML IV SCH ×4 (00:26→18:39)
[2016-11-24] MEDS: DILTIAZEM HCL 30 MG TAB PEG SCH ×2 (00:42→12:02)
[2016-11-24] MEDS: RESP: ACETYLCYSTEINE 10% 30 ML NEB NEB SCH ×4 (00:56→23:45)
[2016-11-24] MEDS: RESP: LEVALBUTEROL HYDROCHLORIDE 0.63 MG/3 ML NEB (PRN) NEB ×4 (00:57→23:46)
[2016-11-24] MEDS: FREE WATER TUBE SCH ×6 (04:00→20:00)
[2016-11-24] MEDS: HEPARIN SODIUM - SQ 10,000 UNITS/ML VIAL SQ SCH ×3 (05:41→21:32)
[2016-11-24] MEDS: ACETIC ACID 0.25% SOLN 1000 ML IRR BTL IRRIGATION SCH ×3 (05:41→21:39)
[2016-11-24] MEDS: SODIUM CHLOR 0.9% 1000 ML INJ 1,000 ML IV SCH ×2 (05:42→16:15)
[2016-11-24] MEDS: INSULIN ASPART SUPPLEMENTAL SCALE SQ SCH (06:27)
[2016-11-24] MEDS: ARTIFICIAL TEARS OPTH SOLN 15 ML BTL EACH EYE SCH ×2 (09:00→21:38)
[2016-11-24] MEDS: KETOCONAZOLE 2% CREAM 15 GM TOPICAL SCH ×2 (09:00→21:00)
[2016-11-24] MEDS: BACITRACIN TOP OINT 15 GM TUBE TOP SCH ×2 (09:00→21:38)
[2016-11-24] MEDS: SODIUM CHLORIDE 0.65% NASAL SPRAY 45 ML BTL NASAL SCH ×2 (09:00→21:00)
[2016-11-24] MEDS: NYSTATIN 100,000 U/GM PWD 15 GM BTL TOPICAL SCH ×2 (09:00→21:38)
[2016-11-24] MEDS: PANTOPRAZOLE SODIUM 40 MG VIAL IV PUSH SCH ×2 (09:26→21:36)
[2016-11-24] MEDS: levETIRAcetam 500 MG/5 ML UDC TUBE SCH ×2 (09:26→21:36)
[2016-11-24] MEDS: METOPROLOL TARTRATE 50 MG TAB PO SCH ×2 (09:26→21:36)
[2016-11-24] MEDS: ASPIRIN 325 MG TAB TUBE SCH (09:26)
[2016-11-24] MEDS: POTASSIUM CHLORIDE 25 MEQ EFFERVESCENT TAB TUBE SCH (09:27)
--- NOTE | 2016-11-24 12:58 | HHI.PR ---
Subjective Remarks Follow up for left MCA stroke, respiratory failure. Patient is currently resting. Remains nonverbal. Mother reports no bowel movement in 4 days. Patient remains afebrile. Objective Vitals Vital Signs Date Time Temp Pulse Resp B/P Pulse Ox O2 Delivery O2 Flow Rate FiO2 11/24/16 12:00 96.6 80 20 103/69 97 11/24/16 10:45 96 T-piece 28 11/24/16 10:45 96 T-piece 28 11/24/16 08:19 81 11/24/16 08:00 97.5 84 22 123/77 100 11/24/16 05:24 97.6 84 23 115/71 96 11/24/16 01:00 98.4 80 16 115/66 97 11/23/16 22:30 96 T-piece 6.00 28 11/23/16 22:30 96 T-piece 6.00 28 11/23/16 20:00 82 11/23/16 20:00 95.9 85 18 126/88 96 11/23/16 20:00 T-Piece 35 Humidified 11/23/16 16:00 96.3 74 18 105/69 98 I/O 11/23/16 11/23/16 11/23/16 11/24/16 11/24/16 11/24/16 07:00 15:00 23:00 07:00 15:00 23:00 Intake Total 1241 ml 832 ml 30 ml Output Total 1100 ml 700 ml 1100 ml Balance 141 ml 132 ml -1100 ml 30 ml IV Total 345 ml 442 ml 30 ml Tube Feeding 496 ml 360 ml Tube Irrigant 30 ml Other 400 ml Output Urine Total 1100 ml 700 ml 1100 ml # Voids 3 # Bowel Movements 0 0 0 Imaging Last Impressions Chest X-Ray 11/18/16 1014 Signed Impressions: Service Date/Time: Friday, November 18, 2016 10:14 - CONCLUSION: Lungs are clear. Mikie Vargas MD Tube Change 11/18/16 0000 Signed Impressions: Service Date/Time: Friday, November 18, 2016 17:38 - CONCLUSION: Uncomplicated gastrojejunostomy tube exchange as above. Jonel Jones Jr., MD Abdomen X-Ray 08/31/16 0000 Signed Impressions: Service Date/Time: Wednesday, August 31, 2016 16:36 - CONCLUSION: 1. No acute findings. Mild constipation. Durga Dotson MD Abdomen/Pelvis CT 04/12/16 0000 Signed Impressions: Service Date/Time: Tuesday, April 12, 2016 20:52 - CONCLUSION: 1. 6.4 cm necrotic mass or abscess in the soft tissues posteriorly just below the sacrum associated with some bony destructive change of the lower most sacrum and coccyx with inflammatory changes extending into the ischiorectal fossa and into the presacral retroperitoneum predominantly on the left side. There is associated fairly marked mural thickening of the anal verge and rectum. 2. There is gastrostomy and Arevalo catheter present. Stable abdominal aortic aneurysm. Durga Dotson MD Head Magnetic Resonance Angiography 03/05/16 0000 Signed Impressions: Service Date/Time: Saturday, March 05, 2016 09:26 - CONCLUSION: Persistent high-grade subtotal occlusive stenotic lesions in the distal right vertebral artery and proximal basilar artery with significant improvement in flow and recanalization following initial presentation of thrombosis. Stable interstitial circulation without significant stenosis. 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 There is decreasing restricted diffusion and increasing loss of volume characteristic of a subacute to chronic infarct. No evidence of acute infarct, acute hemorrhage mass or edema. Ernesto Kulkarni MD Head CT 01/16/16 0000 Signed Impressions: Service Date/Time: Saturday, January 16, 2016 10:51 - CONCLUSION: No extensive low density in the brainstem colin more prominent in the right the left extending into the right middle cerebellar peduncle consistent with brainstem infarct nonhemorrhagic acute Wellington West MD Neck Magnetic Resonance Angiography 12/22/15 1445 Signed Impressions: Service Date/Time: Tuesday, December 22, 2015 09:22 - CONCLUSION: Variant origin of the left vertebral artery from the aortic arch. No evidence of carotid stenosis. Glen Zamora MD Head/Brain Mag Res Venography 12/22/15 0000 Signed Impressions: Service Date/Time: Tuesday, December 22, 2015 09:22 - CONCLUSION: Normal MRV. Jonel Jones Jr., MD Objective Remarks GENERAL: Tracks with eyes. No verbal communication. SKIN: Warm and dry. HEAD: Normocephalic. EYES: No scleral icterus. No injection or drainage. NECK: Supple, trachea midline. No JVD or lymphadenopathy. CARDIOVASCULAR: Regular rate and rhythm without murmurs, gallops, or rubs. RESPIRATORY: Coarse breath sounds. No accessory muscle use. GASTROINTESTINAL: Abdomen soft, non-tender, nondistended. MUSCULOSKELETAL: No cyanosis, or edema. BACK: Nontender without obvious deformity. No CVA tenderness. Procedures 01/02/16 PEG placement 01/02/16 tracheostomy 07/22/2016 Wide excision of sacral skin wound, biopsy of the cavity lining and debridement. PEG tube replacement 07/29/16 VAC changes- M-W-F 10/23- GJ tube replacement Date of Insertion: Oct 12, 2016 A/P Problem List: (1) CVA (cerebral vascular accident) ICD Code: I63.9 Status: Acute (2) A-fib ICD Code: I48.91 Status: Chronic (3) DM (diabetes mellitus) ICD Code: E11.9 Status: Chronic Assessment and Plan 60-year-old male with past medical history of paroxysmal atrial fibrillation, hypertension, stage III a non-Hodgkin's lymphoma status post a chemotherapy last year. He came to the hospital with altered mental status, facial droop. Patient with significant deficit from CVA. - Acute on Chronic respiratory failure - Currently stable. Maintain trach/T piece. Pulmonary following. O2 sat > 92% . - We'll continue Mucomyst scheduled for 5 days. Discussed with RN and respiratory therapist. 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 Continue Keppra for seizure prophylaxis. reconsulted PT/OT per family request. -Need placement. Difficult. Appreciate case management assistance. - Clogged PEG tube on 10/14, 10/23, and again on 11/17. - PEG tube changed on 11/18/2016. - tube feedings Changed to Glucerna 1.0 at 50 ml per hour. juvena one pack BID. mix with 6 oz of water and flush into feeding tube. -continues to have diarrhea, c.diff and work up negative. - Continue Imodium 11/20/2016 - Discussed with RN about giving patient Milk of Mag - Atrial fibrillation -Continue rate control with Cardizem and metoprolol. Echocardiogram in November 2015 shows preserved ejection fraction. -Coumadin discontinued secondary to bleeding. Rate controlled. Continue aspirin and prophylactic heparin dose. - Decreased Cardizem frequency and reduced metoprolol from 50mg to 25mg. - History of non-Hodgkin's lymphoma - Status post brain biopsy on December 13 by neurosurgery. Pathology consistent with acute infarct without evidence of lymphoma. Oncology has signed Off - Diabetes mellitus -Hemoglobin A1c is 7. Monitor Accu-Cheks and cover with sliding scale insulin. Overall blood sugar continues well controlled. - Decubitus ulcer stage IV -Continue wound care, twice-daily dressing changes. Wound care recommendations. Continue pressure relief measures including turning and positioning. Patient's family has declined a diverting colostomy. Previous Wound culture growing Klebsiella. on Augmentin. Status post wide excision of sacral skin and biopsy of the cavity lining with debridement on 07/22/16. ID specialist recommended to continue on Amoxicillin and Cefepime for two months will be until the end of September or first days of October. - Gastric ulcer, reflux esophagitis - EGD on 07/30/16 showed gastric ulcers. Appreciate GI recommendations. Continue PPI. H&H stable. - Urine and Sputum culture growing Pseudomonas - Continue Aztreonam per ID for 7 days starting 11/21/2016 - Anemia Hemoglobin 9.4 stable DVT prophylaxis on Heparin Discharge Planning dc planning to SNF-no funding- SSI pending. Problem Qualifiers (1) DM (diabetes mellitus): Qualified Code: E11.9 - Type 2 diabetes mellitus without complications Birdie Leal DO November 24, 2016 12:58 pm
[2016-11-24] MEDS: PARoxetine HCL SUSP 20 MG/10 ML UDC PEG SCH (18:39)
[2016-11-25] VITALS (9 sets, daily range): BP systolic 108–129; BP diastolic 68–80; PULSE 79–91; RESP 18–22; TEMP 96.4–99.2; O2SAT 91–100
[2016-11-25] MEDS: DILTIAZEM HCL 30 MG TAB PEG SCH ×3 (01:00→13:00)
[2016-11-25] MEDS: AZTREONAM INJ 2,000 MG in SODIUM CHLORIDE 0.9% INJ 100 ML IV SCH ×4 (01:03→17:14)
[2016-11-25] MEDS: FREE WATER TUBE SCH ×6 (04:00→20:00)
[2016-11-25] MEDS: HEPARIN SODIUM - SQ 10,000 UNITS/ML VIAL SQ SCH ×3 (05:48→22:25)
[2016-11-25] MEDS: ACETIC ACID 0.25% SOLN 1000 ML IRR BTL IRRIGATION SCH ×3 (05:52→22:23)
[2016-11-25] MEDS: INSULIN ASPART SUPPLEMENTAL SCALE SQ SCH (06:04)
[2016-11-25] MEDS: RESP: ACETYLCYSTEINE 10% 30 ML NEB NEB SCH ×2 (09:10→16:58)
[2016-11-25] MEDS: RESP: LEVALBUTEROL HYDROCHLORIDE 0.63 MG/3 ML NEB (PRN) NEB ×2 (09:14→16:58)
[2016-11-25] MEDS: PANTOPRAZOLE SODIUM 40 MG VIAL IV PUSH SCH ×2 (09:26→22:26)
[2016-11-25] MEDS: levETIRAcetam 500 MG/5 ML UDC TUBE SCH ×2 (09:26→22:22)
[2016-11-25] MEDS: ASPIRIN 325 MG TAB TUBE SCH (09:26)
[2016-11-25] MEDS: POTASSIUM CHLORIDE 25 MEQ EFFERVESCENT TAB TUBE SCH (09:27)
[2016-11-25] MEDS: SODIUM CHLORIDE 0.65% NASAL SPRAY 45 ML BTL NASAL SCH ×2 (09:27→22:16)
[2016-11-25] MEDS: METOPROLOL TARTRATE 50 MG TAB PO SCH ×2 (09:27→22:21)
[2016-11-25] MEDS: ARTIFICIAL TEARS OPTH SOLN 15 ML BTL EACH EYE SCH ×2 (09:28→22:15)
[2016-11-25] MEDS: BACITRACIN TOP OINT 15 GM TUBE TOP SCH ×2 (09:28→22:16)
[2016-11-25] MEDS: NYSTATIN 100,000 U/GM PWD 15 GM BTL TOPICAL SCH ×2 (09:28→22:20)
[2016-11-25] MEDS: KETOCONAZOLE 2% CREAM 15 GM TOPICAL SCH ×2 (09:30→21:00)
[2016-11-25] MEDS: SODIUM CHLOR 0.9% 1000 ML INJ 1,000 ML IV SCH ×3 (12:15→22:15)
--- NOTE | 2016-11-25 13:36 | HHI.PR ---
Subjective Remarks Follow up for left MCA stroke, respiratory failure. Per patient's mother, patient is doing well. No acute concerns other than no bowel movements in the last several days. Remains aphasic, afebrile. Objective Vitals Vital Signs Date Time Temp Pulse Resp B/P Pulse Ox O2 Delivery O2 Flow Rate FiO2 11/25/16 11:40 96.4 79 22 112/75 97 11/25/16 09:16 99 T-piece 5.00 28 11/25/16 09:16 100 T-piece 5.00 28 11/25/16 08:00 90 11/25/16 07:35 98.0 91 22 122/79 97 11/25/16 06:35 97.3 88 22 126/78 93 11/25/16 02:00 T-Piece 11/25/16 00:00 97.8 80 18 114/73 98 11/24/16 23:50 100 T-piece 5.00 28 11/24/16 21:30 97.1 89 19 121/74 95 11/24/16 16:00 97.3 79 18 111/68 98 I/O 11/24/16 11/24/16 11/24/16 11/25/16 11/25/16 11/25/16 07:00 15:00 23:00 07:00 15:00 23:00 Intake Total 30 ml 625 ml Output Total 2000 ml 1300 ml 250 ml Balance -1970 ml -675 ml -250 ml IV Total 30 ml 310 ml Tube Feeding 315 ml Output Urine Total 2000 ml 1300 ml 250 ml # Voids 3 # Bowel Movements 0 0 0 0 Objective Remarks GENERAL: Tracks with eyes. No verbal communication. SKIN: Warm and dry. HEAD: Normocephalic. EYES: No scleral icterus. No injection or drainage. NECK: Supple, trachea midline. No JVD or lymphadenopathy. CARDIOVASCULAR: Regular rate and rhythm without murmurs, gallops, or rubs. RESPIRATORY: Coarse breath sounds. No accessory muscle use. GASTROINTESTINAL: Abdomen soft, non-tender, nondistended. MUSCULOSKELETAL: No cyanosis, or edema. BACK: Nontender without obvious deformity. No CVA tenderness. Procedures 01/02/16 PEG placement 01/02/16 tracheostomy 07/22/2016 Wide excision of sacral skin wound, biopsy of the cavity lining and debridement. PEG tube replacement 07/29/16 VAC changes- M-W-F 10/23- GJ tube replacement Date of Insertion: Oct 12, 2016 A/P Problem List: (1) CVA (cerebral vascular accident) ICD Code: I63.9 Status: Acute (2) A-fib ICD Code: I48.91 Status: Chronic (3) DM (diabetes mellitus) ICD Code: E11.9 Status: Chronic Assessment and Plan 60-year-old male with past medical history of paroxysmal atrial fibrillation, hypertension, stage III a non-Hodgkin's lymphoma status post a chemotherapy last year. He came to the hospital with altered mental status, facial droop. Patient with significant deficit from CVA. - Acute on Chronic respiratory failure - Currently stable. Maintain trach/T piece. Pulmonary following. O2 sat > 92% . - We'll continue Mucomyst scheduled for 5 days. Discussed with RN and respiratory therapist. 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 Continue Keppra for seizure prophylaxis. reconsulted PT/OT per family request. -Need placement. Difficult. Appreciate case management assistance. - Clogged PEG tube on 10/14, 10/23, and again on 11/17. - PEG tube changed on 11/18/2016. - tube feedings Changed to Glucerna 1.0 at 50 ml per hour. juvena one pack BID. mix with 6 oz of water and flush into feeding tube. - continues to have diarrhea, c.diff and work up negative. - Continue Imodium 11/20/2016 - Discussed with RN today 11/25/2016 about giving patient Milk of Mag. - Atrial fibrillation -Continue rate control with Cardizem and metoprolol. Echocardiogram in November 2015 shows preserved ejection fraction. -Coumadin discontinued secondary to bleeding. Rate controlled. Continue aspirin and prophylactic heparin dose. - Decreased Cardizem frequency and reduced metoprolol from 50mg to 25mg. - History of non-Hodgkin's lymphoma - Status post brain biopsy on December 13 by neurosurgery. Pathology consistent with acute infarct without evidence of lymphoma. Oncology has signed Off - Diabetes mellitus -Hemoglobin A1c is 7. Monitor Accu-Cheks and cover with sliding scale insulin. Overall blood sugar continues well controlled. - Decubitus ulcer stage IV -Continue wound care, twice-daily dressing changes. Wound care recommendations. Continue pressure relief measures including turning and positioning. Patient's family has declined a diverting colostomy. Previous Wound culture growing Klebsiella. on Augmentin. Status post wide excision of sacral skin and biopsy of the cavity lining with debridement on 07/22/16. ID specialist recommended to continue on Amoxicillin and Cefepime for two months will be until the end of September or first days of October. - Gastric ulcer, reflux esophagitis - EGD on 07/30/16 showed gastric ulcers. Appreciate GI recommendations. Continue PPI. H&H stable. - Urine and Sputum culture growing Pseudomonas - Continue Aztreonam per ID for 7 days starting 11/21/2016 - Anemia Hemoglobin 9.4 stable DVT prophylaxis on Heparin Discharge Planning dc planning to SNF-no funding- SSI pending. Problem Qualifiers (1) DM (diabetes mellitus): Qualified Code: E11.9 - Type 2 diabetes mellitus without complications Bidrie Leal DO November 25, 2016 13:36
--- NOTE | 2016-11-25 15:40 | HHI.PR ---
Subjective Remarks opens eyes on o2 , o2 SAT 95 ON T PIECE NO DITRESS TRACH. [place] Objective Vital Signs Date Time Temp Pulse Resp B/P Pulse Ox O2 Delivery O2 Flow Rate FiO2 11/25/16 11:40 96.4 79 22 112/75 97 11/25/16 09:16 99 T-piece 5.00 28 11/25/16 09:16 100 T-piece 5.00 28 11/25/16 08:00 90 11/25/16 07:35 98.0 91 22 122/79 97 11/25/16 06:35 97.3 88 22 126/78 93 11/25/16 02:00 T-Piece 11/25/16 00:00 97.8 80 18 114/73 98 11/24/16 23:50 100 T-piece 5.00 28 11/24/16 21:30 97.1 89 19 121/74 95 11/24/16 16:00 97.3 79 18 111/68 98 I/O 11/24/16 11/24/16 11/24/16 11/25/16 11/25/16 11/25/16 07:00 15:00 23:00 07:00 15:00 23:00 Intake Total 30 ml 625 ml 700 ml Output Total 2000 ml 1300 ml 250 ml 1200 ml Balance -1970 ml -675 ml -250 ml -500 ml IV Total 30 ml 310 ml Tube Feeding 315 ml 300 ml Tube Irrigant 400 ml Output Urine Total 2000 ml 1300 ml 250 ml 1200 ml # Voids 3 # Bowel Movements 0 0 0 0 1 Procedures 01/02/16 PEG placement 01/02/16 tracheostomy 07/22/2016 Wide excision of sacral skin wound, biopsy of the cavity lining and debridement. PEG tube replacement 07/29/16 Objective Remarks GENERAL: SKIN: Warm and dry. HEAD: Atraumatic. Normocephalic. EYES: Pupils equal and round. No scleral icterus. No injection or drainage. ENT: No nasal bleeding or discharge. Mucous membranes pink and moist. NECK: Trachea midline. No JVD. TRACH. [place] CARDIOVASCULAR: Regular rate and rhythm. RESPIRATORY: No accessory muscle use. Clear to auscultation. Breath sounds equal bilaterally. GASTROINTESTINAL: Abdomen soft, non-tender, nondistended. Hepatic and splenic margins not palpable. MUSCULOSKELETAL: Extremities without clubbing, cyanosis, or edema. No obvious deformities. NEUROLOGICAL: Awake and alert. No obvious cranial nerve deficits. Motor grossly within normal limits. Five out of 5 muscle strength in the arms and legs. Normal speech. PSYCHIATRIC: Appropriate mood and affect; insight and judgment normal. Assessment and Plan Assessment and Plan impression respiratory failure CVA S/P TRACHEOSTOMY PLAN O2 NEEDED PULM. TOILET Brandon Taylor MD November 25, 2016 15:40
[2016-11-25] MEDS: MAGNESIUM HYDROXIDE SUSP 30 ML CUP PO PRN (16:40)
[2016-11-25] MEDS: PARoxetine HCL SUSP 20 MG/10 ML UDC PEG SCH (18:16)
[2016-11-26] VITALS (8 sets, daily range): BP systolic 116–135; BP diastolic 74–84; PULSE 78–91; RESP 18–20; TEMP 96.2–98.9; O2SAT 96–100
[2016-11-26] MEDS: AZTREONAM INJ 2,000 MG in SODIUM CHLORIDE 0.9% INJ 100 ML IV SCH ×4 (00:47→18:31)
[2016-11-26] MEDS: DILTIAZEM HCL 30 MG TAB PEG SCH ×2 (00:48→13:00)
[2016-11-26] MEDS: RESP: ACETYLCYSTEINE 10% 30 ML NEB NEB SCH ×4 (01:06→16:36)
[2016-11-26] MEDS: RESP: LEVALBUTEROL HYDROCHLORIDE 0.63 MG/3 ML NEB (PRN) NEB ×3 (01:07→16:36)
[2016-11-26] MEDS: FREE WATER TUBE SCH ×6 (04:00→21:47)
[2016-11-26] MEDS: HEPARIN SODIUM - SQ 10,000 UNITS/ML VIAL SQ SCH ×3 (05:49→21:40)
[2016-11-26] MEDS: INSULIN ASPART SUPPLEMENTAL SCALE SQ SCH (05:49)
[2016-11-26] MEDS: SODIUM CHLOR 0.9% 1000 ML INJ 1,000 ML IV SCH ×2 (08:15→18:15)
[2016-11-26] MEDS: POTASSIUM CHLORIDE 25 MEQ EFFERVESCENT TAB TUBE SCH (08:38)
[2016-11-26] MEDS: SODIUM CHLORIDE 0.65% NASAL SPRAY 45 ML BTL NASAL SCH ×2 (08:39→21:24)
[2016-11-26] MEDS: METOPROLOL TARTRATE 50 MG TAB PO SCH ×2 (08:39→21:25)
[2016-11-26] MEDS: NYSTATIN 100,000 U/GM PWD 15 GM BTL TOPICAL SCH ×2 (08:39→21:26)
[2016-11-26] MEDS: ASPIRIN 325 MG TAB TUBE SCH (08:39)
[2016-11-26] MEDS: levETIRAcetam 500 MG/5 ML UDC TUBE SCH ×2 (08:39→21:26)
[2016-11-26] MEDS: ARTIFICIAL TEARS OPTH SOLN 15 ML BTL EACH EYE SCH ×2 (08:40→21:23)
[2016-11-26] MEDS: KETOCONAZOLE 2% CREAM 15 GM TOPICAL SCH ×2 (08:40→21:00)
[2016-11-26] MEDS: BACITRACIN TOP OINT 15 GM TUBE TOP SCH ×2 (08:40→21:25)
[2016-11-26] MEDS: PANTOPRAZOLE SODIUM 40 MG VIAL IV PUSH SCH ×2 (10:11→21:40)
[2016-11-26] MEDS: ACETIC ACID 0.25% SOLN 1000 ML IRR BTL IRRIGATION SCH ×2 (14:07→21:45)
--- NOTE | 2016-11-26 15:53 | HHI.PR ---
Subjective Remarks Follow up for left MCA stroke, respiratory failure. Patient's mother reports no acute concerns. He had BM and hemodynamically stable. No fever, chills. Later on in the evening, however, patient's O2 sat dropped and improved after suctioning. Discussed with RN. Objective Vitals Vital Signs Date Time Temp Pulse Resp B/P Pulse Ox O2 Delivery O2 Flow Rate FiO2 11/26/16 12:00 96.8 78 19 123/79 98 11/26/16 09:36 100 T-piece 5.00 28 11/26/16 08:00 83 11/26/16 08:00 96.2 80 19 135/81 98 11/26/16 04:00 98.4 83 20 125/77 100 11/26/16 01:12 99 T-piece 28 11/26/16 00:00 98.9 79 20 116/75 96 11/25/16 23:24 100 T-piece 6.00 28 11/25/16 23:24 100 T-piece 6.00 28 11/25/16 20:00 T-Piece 5.00 28 11/25/16 20:00 91 11/25/16 20:00 99.2 89 20 129/80 97 I/O 11/25/16 11/25/16 11/25/16 11/26/16 11/26/16 11/26/16 06:59 14:59 22:59 06:59 14:59 22:59 Intake Total 2100 ml Output Total 250 ml 1200 ml 2200 ml 100 ml 700 ml Balance -250 ml 900 ml -2200 ml -100 ml -700 ml IV Total 1400 ml Tube Feeding 300 ml Tube Irrigant 400 ml Output Urine Total 250 ml 1200 ml 2200 ml 100 ml 700 ml Bladder Scan Volume Amount 392 ml # Bowel Movements 0 1 0 2 2 Objective Remarks GENERAL: Tracks with eyes. No verbal communication. SKIN: Warm and dry. HEAD: Normocephalic. EYES: No scleral icterus. No injection or drainage. NECK: Supple, trachea midline. No JVD or lymphadenopathy. CARDIOVASCULAR: Regular rate and rhythm without murmurs, gallops, or rubs. RESPIRATORY: Coarse breath sounds. No accessory muscle use. GASTROINTESTINAL: Abdomen soft, non-tender, nondistended. MUSCULOSKELETAL: No cyanosis, or edema. BACK: Nontender without obvious deformity. No CVA tenderness. Procedures 01/02/16 PEG placement 01/02/16 tracheostomy 07/22/2016 Wide excision of sacral skin wound, biopsy of the cavity lining and debridement. PEG tube replacement 07/29/16 VAC changes- M-W-F 10/23- GJ tube replacement Date of Insertion: Oct 12, 2016 A/P Problem List: (1) CVA (cerebral vascular accident) ICD Code: I63.9 Status: Acute (2) A-fib ICD Code: I48.91 Status: Chronic (3) DM (diabetes mellitus) ICD Code: E11.9 Status: Chronic Assessment and Plan 60-year-old male with past medical history of paroxysmal atrial fibrillation, hypertension, stage III a non-Hodgkin's lymphoma status post a chemotherapy last year. He came to the hospital with altered mental status, facial droop. Patient with significant deficit from CVA. - Acute on Chronic respiratory failure - Currently stable. Maintain trach/T piece. Pulmonary following. O2 sat > 92% . - We'll continue Mucomyst scheduled for 5 days. Discussed with RN and respiratory therapist. - Provide suctioning, monitor. Patient often have decreased saturation but improves after suctioning. 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 Continue Keppra for seizure prophylaxis. reconsulted PT/OT per family request. -Need placement. Difficult. Appreciate case management assistance. - Clogged PEG tube on 10/14, 10/23, and again on 11/17. - PEG tube changed on 11/18/2016. - tube feedings Changed to Glucerna 1.0 at 50 ml per hour. juvena one pack BID. mix with 6 oz of water and flush into feeding tube. - continues to have diarrhea, c.diff and work up negative. - Continue Imodium 11/20/2016 - Discussed with RN today 11/25/2016 about giving patient Milk of Mag. - Atrial fibrillation -Continue rate control with Cardizem and metoprolol. Echocardiogram in November 2015 shows preserved ejection fraction. -Coumadin discontinued secondary to bleeding. Rate controlled. Continue aspirin and prophylactic heparin dose. - Decreased Cardizem frequency and reduced metoprolol from 50mg to 25mg. - History of non-Hodgkin's lymphoma - Status post brain biopsy on December 13 by neurosurgery. Pathology consistent with acute infarct without evidence of lymphoma. Oncology has signed Off - Diabetes mellitus -Hemoglobin A1c is 7. Monitor Accu-Cheks and cover with sliding scale insulin. Overall blood sugar continues well controlled. - Decubitus ulcer stage IV -Continue wound care, twice-daily dressing changes. Wound care recommendations. Continue pressure relief measures including turning and positioning. Patient's family has declined a diverting colostomy. Previous Wound culture growing Klebsiella. on Augmentin. Status post wide excision of sacral skin and biopsy of the cavity lining with debridement on 07/22/16. ID specialist recommended to continue on Amoxicillin and Cefepime for two months will be until the end of September or first days of October. - Gastric ulcer, reflux esophagitis - EGD on 07/30/16 showed gastric ulcers. Appreciate GI recommendations. Continue PPI. H&H stable. - Urine and Sputum culture growing Pseudomonas - Continue Aztreonam per ID for 7 days starting 11/21/2016 - Anemia Hemoglobin 9.4 stable DVT prophylaxis on Heparin Discharge Planning dc planning to SNF-no funding- SSI pending. Problem Qualifiers (1) DM (diabetes mellitus): Qualified Code: E11.9 - Type 2 diabetes mellitus without complications Birdie Leal DO November 26, 2016 3:53 pm
--- NOTE | 2016-11-26 17:25 | HHI.PR ---
Subjective Remarks opens eyes on o2 , o2 SAT 95 ON T PIECE NO DITRESS TRACH. [place] Objective Vital Signs Date Time Temp Pulse Resp B/P Pulse Ox O2 Delivery O2 Flow Rate FiO2 11/26/16 16:00 96.5 87 18 118/74 98 11/26/16 12:00 96.8 78 19 123/79 98 11/26/16 09:36 100 T-piece 5.00 28 11/26/16 08:00 83 11/26/16 08:00 96.2 80 19 135/81 98 11/26/16 04:00 98.4 83 20 125/77 100 11/26/16 01:12 99 T-piece 28 11/26/16 00:00 98.9 79 20 116/75 96 11/25/16 23:24 100 T-piece 6.00 28 11/25/16 23:24 100 T-piece 6.00 28 11/25/16 20:00 T-Piece 5.00 28 11/25/16 20:00 91 11/25/16 20:00 99.2 89 20 129/80 97 I/O 11/25/16 11/25/16 11/25/16 11/26/16 11/26/16 11/26/16 06:59 14:59 22:59 06:59 14:59 22:59 Intake Total 2100 ml Output Total 250 ml 1200 ml 2200 ml 100 ml 700 ml Balance -250 ml 900 ml -2200 ml -100 ml -700 ml IV Total 1400 ml Tube Feeding 300 ml Tube Irrigant 400 ml Output Urine Total 250 ml 1200 ml 2200 ml 100 ml 700 ml Bladder Scan Volume Amount 392 ml # Bowel Movements 0 1 0 2 2 Procedures 01/02/16 PEG placement 01/02/16 tracheostomy 07/22/2016 Wide excision of sacral skin wound, biopsy of the cavity lining and debridement. PEG tube replacement 07/29/16 Objective Remarks GENERAL: SKIN: Warm and dry. HEAD: Atraumatic. Normocephalic. EYES: Pupils equal and round. No scleral icterus. No injection or drainage. ENT: No nasal bleeding or discharge. Mucous membranes pink and moist. NECK: Trachea midline. No JVD. TRACH. [place] CARDIOVASCULAR: Regular rate and rhythm. RESPIRATORY: No accessory muscle use. Clear to auscultation. Breath sounds equal bilaterally. GASTROINTESTINAL: Abdomen soft, non-tender, nondistended. Hepatic and splenic margins not palpable. MUSCULOSKELETAL: Extremities without clubbing, cyanosis, or edema. No obvious deformities. NEUROLOGICAL: Awake and alert. No obvious cranial nerve deficits. Motor grossly within normal limits. Five out of 5 muscle strength in the arms and legs. Normal speech. PSYCHIATRIC: Appropriate mood and affect; insight and judgment normal. Assessment and Plan Assessment and Plan impression respiratory failure CVA S/P TRACHEOSTOMY PLAN O2 NEEDED PULM. TOILET Brandon Taylor MD November 26, 2016 17:25
[2016-11-26 18:30] LABS: BLOOD GAS BASE EXCESS -0.7 mmol/L (-2-2); BLOOD GAS CARBOXYHEMOGLOBIN 1.8 % (0-4); BLOOD GAS HCO3 23 mmol/L (22-26); BLOOD GAS METHEMOGLOBIN 0.7 % (0-2); BLOOD GAS O2 HGB SATURATION 94 % (90-100); BLOOD GAS OXYGEN CONTENT 13.6 Vol % (12.0-20.0); BLOOD GAS PCO2 37 mmHg (38-42); BLOOD GAS PO2 87 mmHg (61-120); BLOOD GAS TOTAL HGB 10.2 G/DL (12.0-16.0); CRITICAL VALUE NO; DRAW SITE LT RADIAL; FIO2 50 %; LITER FLOW 5 L/M; NUMBER OF ARTERIAL PUNCTURES 1; OXYGEN DEVICE TPIECE; TEMP CORR TO 98.6
[2016-11-26 18:31] LABS: STAT NO; ULNAR PULSE PRESENT
[2016-11-26] MEDS: PARoxetine HCL SUSP 20 MG/10 ML UDC PEG SCH (18:31)
[2016-11-27] VITALS (10 sets, daily range): BP systolic 106–142; BP diastolic 57–80; PULSE 74–115; RESP 20–32; TEMP 95.7–99.1; O2SAT 96–100
[2016-11-27] MEDS: RESP: ACETYLCYSTEINE 10% 30 ML NEB NEB SCH ×2 (00:49→08:00)
[2016-11-27] MEDS: RESP: LEVALBUTEROL HYDROCHLORIDE 0.63 MG/3 ML NEB (PRN) NEB (00:50)
[2016-11-27] MEDS: AZTREONAM INJ 2,000 MG in SODIUM CHLORIDE 0.9% INJ 100 ML IV SCH ×4 (01:03→18:08)
[2016-11-27] MEDS: FREE WATER TUBE SCH ×6 (01:05→20:00)
[2016-11-27] MEDS: DILTIAZEM HCL 30 MG TAB PEG SCH ×2 (02:06→12:48)
[2016-11-27] MEDS: SODIUM CHLOR 0.9% 1000 ML INJ 1,000 ML IV SCH ×3 (04:15→21:33)
[2016-11-27] MEDS: HEPARIN SODIUM - SQ 10,000 UNITS/ML VIAL SQ SCH ×3 (06:00→21:23)
[2016-11-27] MEDS: INSULIN ASPART SUPPLEMENTAL SCALE SQ SCH (06:19)
[2016-11-27] MEDS: ACETIC ACID 0.25% SOLN 1000 ML IRR BTL IRRIGATION SCH ×3 (06:20→21:25)
[2016-11-27] MEDS: SODIUM CHLORIDE 0.65% NASAL SPRAY 45 ML BTL NASAL SCH ×2 (08:49→21:24)
[2016-11-27] MEDS: ARTIFICIAL TEARS OPTH SOLN 15 ML BTL EACH EYE SCH ×2 (08:49→21:24)
[2016-11-27] MEDS: levETIRAcetam 500 MG/5 ML UDC TUBE SCH ×2 (08:50→21:22)
[2016-11-27] MEDS: METOPROLOL TARTRATE 50 MG TAB PO SCH ×2 (08:50→21:23)
[2016-11-27] MEDS: BACITRACIN TOP OINT 15 GM TUBE TOP SCH ×2 (08:50→21:24)
[2016-11-27] MEDS: NYSTATIN 100,000 U/GM PWD 15 GM BTL TOPICAL SCH ×2 (08:50→21:23)
[2016-11-27] MEDS: PANTOPRAZOLE SODIUM 40 MG VIAL IV PUSH SCH ×2 (08:50→21:23)
[2016-11-27] MEDS: ASPIRIN 325 MG TAB TUBE SCH (08:50)
[2016-11-27] MEDS: POTASSIUM CHLORIDE 25 MEQ EFFERVESCENT TAB TUBE SCH (08:50)
[2016-11-27] MEDS: KETOCONAZOLE 2% CREAM 15 GM TOPICAL SCH (08:51)
[2016-11-27] MEDS: PARoxetine HCL SUSP 20 MG/10 ML UDC PEG SCH (18:08)
--- NOTE | 2016-11-27 18:42 | HHI.PR ---
Subjective Remarks opens eyes on o2 , o2 SAT 95 ON T PIECE NO DITRESS TRACH. [place] Objective Vital Signs Date Time Temp Pulse Resp B/P Pulse Ox O2 Delivery O2 Flow Rate FiO2 11/27/16 16:48 96.4 91 20 108/71 96 11/27/16 14:16 78 11/27/16 12:59 95.7 74 20 106/78 100 11/27/16 09:57 98 T-piece 6.00 40 11/27/16 09:57 98 T-piece 6.00 40 11/27/16 08:46 96.7 80 20 121/78 99 11/27/16 06:00 98 Trach Collar 5.00 40 11/27/16 04:00 95.7 77 20 119/75 96 11/27/16 00:53 99 T-piece 6.00 40 11/27/16 00:45 84 11/27/16 00:00 97.4 84 22 127/80 100 11/26/16 20:00 96.8 91 18 124/84 100 I/O 11/26/16 11/26/16 11/26/16 11/27/16 11/27/16 11/27/16 07:00 15:00 23:00 07:00 15:00 23:00 Intake Total 600 ml Output Total 100 ml 700 ml 1300 ml 1200 ml Balance -100 ml -700 ml -700 ml -1200 ml Other 600 ml Output Urine Total 100 ml 700 ml 1300 ml 1200 ml # Bowel Movements 2 2 1 2 Procedures 01/02/16 PEG placement 01/02/16 tracheostomy 07/22/2016 Wide excision of sacral skin wound, biopsy of the cavity lining and debridement. PEG tube replacement 07/29/16 Objective Remarks GENERAL: SKIN: Warm and dry. HEAD: Atraumatic. Normocephalic. EYES: Pupils equal and round. No scleral icterus. No injection or drainage. ENT: No nasal bleeding or discharge. Mucous membranes pink and moist. NECK: Trachea midline. No JVD. TRACH. [place] CARDIOVASCULAR: Regular rate and rhythm. RESPIRATORY: No accessory muscle use. Clear to auscultation. Breath sounds equal bilaterally. GASTROINTESTINAL: Abdomen soft, non-tender, nondistended. Hepatic and splenic margins not palpable. MUSCULOSKELETAL: Extremities without clubbing, cyanosis, or edema. No obvious deformities. NEUROLOGICAL: Awake and alert. No obvious cranial nerve deficits. Motor grossly within normal limits. Five out of 5 muscle strength in the arms and legs. Normal speech. PSYCHIATRIC: Appropriate mood and affect; insight and judgment normal. Assessment and Plan Assessment and Plan impression respiratory failure CVA S/P TRACHEOSTOMY PLAN O2 NEEDED PULM. TOFLORENCIAT Brandon Taylor MD November 27, 2016 18:42
[2016-11-28] VITALS (8 sets, daily range): BP systolic 101–118; BP diastolic 66–80; PULSE 70–89; RESP 18–20; TEMP 96.6–98.7; O2SAT 95–100
[2016-11-28] MEDS: KETOCONAZOLE 2% CREAM 15 GM TOPICAL SCH ×3 (00:01→23:37)
[2016-11-28] MEDS: AZTREONAM INJ 2,000 MG in SODIUM CHLORIDE 0.9% INJ 100 ML IV SCH ×3 (00:01→12:25)
[2016-11-28] MEDS: DILTIAZEM HCL 30 MG TAB PEG SCH ×2 (00:01→12:25)
--- NOTE | 2016-11-28 01:51 | HHI.PR ---
Subjective Remarks Late entry for 11/27/2016 Follow up for left MCA stroke, respiratory failure. Patient is currently doing well. Remains aphasic and does not follow commands. Patient's mother states yesterday he had respiratory difficulties but resolved after suctioning. Patient had bowel movements yesterday. Oxygen saturation and heart rate has been well controlled. He is currently on 40% O2. Objective Vitals Vital Signs Date Time Temp Pulse Resp B/P Pulse Ox O2 Delivery O2 Flow Rate FiO2 11/27/16 20:00 79 11/27/16 20:00 99.1 115 32 108/57 98 11/27/16 20:00 96.8 82 20 142/76 100 11/27/16 16:48 96.4 91 20 108/71 96 11/27/16 14:16 78 11/27/16 12:59 95.7 74 20 106/78 100 11/27/16 09:57 98 T-piece 6.00 40 11/27/16 09:57 98 T-piece 6.00 40 11/27/16 08:46 96.7 80 20 121/78 99 11/27/16 06:00 98 Trach Collar 5.00 40 11/27/16 04:00 95.7 77 20 119/75 96 I/O 11/27/16 11/27/16 11/27/16 11/28/16 11/28/16 11/28/16 07:00 15:00 23:00 07:00 15:00 23:00 Intake Total 600 ml Output Total 1300 ml 1200 ml Balance -700 ml -1200 ml Other 600 ml Output Urine Total 1300 ml 1200 ml # Bowel Movements 1 2 Objective Remarks GENERAL: Tracks with eyes. No verbal communication. SKIN: Warm and dry. HEAD: Normocephalic. EYES: No scleral icterus. No injection or drainage. NECK: Supple, trachea midline. No JVD or lymphadenopathy. CARDIOVASCULAR: Regular rate and rhythm without murmurs, gallops, or rubs. RESPIRATORY: Coarse breath sounds. No accessory muscle use. GASTROINTESTINAL: Abdomen soft, non-tender, nondistended. MUSCULOSKELETAL: No cyanosis, or edema. BACK: Nontender without obvious deformity. No CVA tenderness. Procedures 01/02/16 PEG placement 01/02/16 tracheostomy 07/22/2016 Wide excision of sacral skin wound, biopsy of the cavity lining and debridement. PEG tube replacement 07/29/16 VAC changes- M-W-F 10/23- GJ tube replacement Date of Insertion: Oct 12, 2016 A/P Problem List: (1) CVA (cerebral vascular accident) ICD Code: I63.9 Status: Acute (2) A-fib ICD Code: I48.91 Status: Chronic (3) DM (diabetes mellitus) ICD Code: E11.9 Status: Chronic Assessment and Plan 60-year-old male with past medical history of paroxysmal atrial fibrillation, hypertension, stage III a non-Hodgkin's lymphoma status post a chemotherapy last year. He came to the hospital with altered mental status, facial droop. Patient with significant deficit from CVA. - Acute on Chronic respiratory failure - Currently stable. Maintain trach/T piece. Pulmonary following. O2 sat > 92% . - We'll continue Mucomyst scheduled for 5 days. Discussed with RN and respiratory therapist. - Provide suctioning, monitor. Patient often have decreased saturation but improves after suctioning. 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 Continue Keppra for seizure prophylaxis. reconsulted PT/OT per family request. -Need placement. Difficult. Appreciate case management assistance. - Clogged PEG tube on 10/14, 10/23, and again on 11/17. - PEG tube changed on 11/18/2016. - tube feedings Changed to Glucerna 1.0 at 50 ml per hour. juvena one pack BID. mix with 6 oz of water and flush into feeding tube. - continues to have diarrhea, c.diff and work up negative. - Continue Imodium 11/20/2016 - Discussed with RN today 11/25/2016 about giving patient Milk of Mag. - Atrial fibrillation -Continue rate control with Cardizem and metoprolol. Echocardiogram in November 2015 shows preserved ejection fraction. -Coumadin discontinued secondary to bleeding. Rate controlled. Continue aspirin and prophylactic heparin dose. - Decreased Cardizem frequency and reduced metoprolol from 50mg to 25mg. - History of non-Hodgkin's lymphoma - Status post brain biopsy on December 13 by neurosurgery. Pathology consistent with acute infarct without evidence of lymphoma. Oncology has signed Off - Diabetes mellitus -Hemoglobin A1c is 7. Monitor Accu-Cheks and cover with sliding scale insulin. Overall blood sugar continues well controlled. - Decubitus ulcer stage IV -Continue wound care, twice-daily dressing changes. Wound care recommendations. Continue pressure relief measures including turning and positioning. Patient's family has declined a diverting colostomy. Previous Wound culture growing Klebsiella. on Augmentin. Status post wide excision of sacral skin and biopsy of the cavity lining with debridement on 07/22/16. ID specialist recommended to continue on Amoxicillin and Cefepime for two months will be until the end of September or first days of October. - Gastric ulcer, reflux esophagitis - EGD on 07/30/16 showed gastric ulcers. Appreciate GI recommendations. Continue PPI. H&H stable. - Urine and Sputum culture growing Pseudomonas - Continue Aztreonam per ID for 7 days starting 11/21/2016 - Anemia Hemoglobin 9.4 stable DVT prophylaxis on Heparin Discharge Planning dc planning to SNF-no funding- SSI pending. 11/27/2016 - no acute changes in plan. Continue current management. Problem Qualifiers (1) DM (diabetes mellitus): Qualified Code: E11.9 - Type 2 diabetes mellitus without complications Birdie Leal DO November 28, 2016 1:51 am
[2016-11-28] MEDS: FREE WATER TUBE SCH ×7 (04:00→23:37)
[2016-11-28] MEDS: SODIUM CHLOR 0.9% 1000 ML INJ 1,000 ML IV SCH ×2 (06:30→19:45)
[2016-11-28] MEDS: INSULIN ASPART SUPPLEMENTAL SCALE SQ SCH (06:31)
[2016-11-28] MEDS: HEPARIN SODIUM - SQ 10,000 UNITS/ML VIAL SQ SCH ×3 (06:31→21:13)
[2016-11-28] MEDS: ACETIC ACID 0.25% SOLN 1000 ML IRR BTL IRRIGATION SCH ×3 (06:32→23:36)
[2016-11-28] MEDS: ASPIRIN 325 MG TAB TUBE SCH (08:06)
[2016-11-28] MEDS: PANTOPRAZOLE SODIUM 40 MG VIAL IV PUSH SCH ×2 (08:06→21:13)
[2016-11-28] MEDS: METOPROLOL TARTRATE 50 MG TAB PO SCH ×2 (08:06→21:14)
[2016-11-28] MEDS: POTASSIUM CHLORIDE 25 MEQ EFFERVESCENT TAB TUBE SCH (08:06)
[2016-11-28] MEDS: NYSTATIN 100,000 U/GM PWD 15 GM BTL TOPICAL SCH ×2 (08:07→23:35)
[2016-11-28] MEDS: levETIRAcetam 500 MG/5 ML UDC TUBE SCH ×2 (08:07→21:15)
[2016-11-28] MEDS: BACITRACIN TOP OINT 15 GM TUBE TOP SCH ×2 (08:07→23:35)
[2016-11-28] MEDS: SODIUM CHLORIDE 0.65% NASAL SPRAY 45 ML BTL NASAL SCH ×2 (08:10→21:00)
[2016-11-28] MEDS: ARTIFICIAL TEARS OPTH SOLN 15 ML BTL EACH EYE SCH ×2 (08:10→21:14)
--- NOTE | 2016-11-28 17:01 | HHI.IDPN ---
Subjective Subjective Remarks + coughing sputum thick sats are good remains afebrile Antibiotics azactam Lines Peripheral IV Past Medical History Hypertension. Stage III non-Hodgkin's lymphoma. Diabetes mellitus. Paroxysmal atrial fibrillation. Brain biopsy in Nov, 2015. History of left arm surgery. 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 Vital Signs Date Time Temp Pulse Resp B/P Pulse Ox O2 Delivery O2 Flow Rate FiO2 11/28/16 16:20 96.6 89 20 112/69 98 11/28/16 12:03 96.8 70 20 115/72 99 11/28/16 11:12 82 11/28/16 10:54 97 Blow By 35 T-Piece Humidified 11/28/16 08:24 100 T-piece 35 11/28/16 07:43 98.1 83 20 118/80 100 11/28/16 04:00 98.7 80 20 110/70 99 11/28/16 00:00 97.7 74 18 101/66 99 11/27/16 20:00 98 Trach Collar 5.00 40 11/27/16 20:00 79 11/27/16 20:00 96.8 82 20 142/76 100 11/27/16 11/27/16 11/28/16 15:00 23:00 07:00 Intake Total 2400 ml Output Total 1200 ml 1000 ml Balance -1200 ml 1400 ml IV Total 1200 ml Tube Feeding 600 ml Tube Irrigant 600 ml Output Urine Total 1200 ml 1000 ml # Bowel Movements 2 1 Imaging Last Last Impressions Chest X-Ray 11/18/16 1014 Signed Impressions: Service Date/Time: Friday, November 18, 2016 10:14 - CONCLUSION: Lungs are clear. Mikie Vargas MD Tube Change 11/18/16 0000 Signed Impressions: Service Date/Time: Friday, November 18, 2016 17:38 - CONCLUSION: Uncomplicated gastrojejunostomy tube exchange as above. Jonel Jones Jr., MD Abdomen X-Ray 08/31/16 0000 Signed Impressions: Service Date/Time: Wednesday, August 31, 2016 16:36 - CONCLUSION: 1. No acute findings. Mild constipation. Durga Dotson MD Abdomen/Pelvis CT 04/12/16 0000 Signed Impressions: Service Date/Time: Tuesday, April 12, 2016 20:52 - CONCLUSION: 1. 6.4 cm necrotic mass or abscess in the soft tissues posteriorly just below the sacrum associated with some bony destructive change of the lower most sacrum and coccyx with inflammatory changes extending into the ischiorectal fossa and into the presacral retroperitoneum predominantly on the left side. There is associated fairly marked mural thickening of the anal verge and rectum. 2. There is gastrostomy and Lopez catheter present. Stable abdominal aortic aneurysm. Durga Dotson MD Head Magnetic Resonance Angiography 03/05/16 0000 Signed Impressions: Service Date/Time: Saturday, March 05, 2016 09:26 - CONCLUSION: Persistent high-grade subtotal occlusive stenotic lesions in the distal right vertebral artery and proximal basilar artery with significant improvement in flow and recanalization following initial presentation of thrombosis. Stable interstitial circulation without significant stenosis. 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 There is decreasing restricted diffusion and increasing loss of volume characteristic of a subacute to chronic infarct. No evidence of acute infarct, acute hemorrhage mass or edema. Ernesto Kulkarni MD Head CT 01/16/16 0000 Signed Impressions: Service Date/Time: Saturday, January 16, 2016 10:51 - CONCLUSION: No extensive low density in the brainstem colin more prominent in the right the left extending into the right middle cerebellar peduncle consistent with brainstem infarct nonhemorrhagic acute Wellington West MD Neck Magnetic Resonance Angiography 12/22/15 1445 Signed Impressions: Service Date/Time: Tuesday, December 22, 2015 09:22 - CONCLUSION: Variant origin of the left vertebral artery from the aortic arch. No evidence of carotid stenosis. Glen Zamora MD Head/Brain Mag Res Venography 12/22/15 0000 Signed Impressions: Service Date/Time: Tuesday, December 22, 2015 09:22 - CONCLUSION: Normal MRV. Jonel Jones Jr., MD Physical Exam GENERAL: opens eyes when stimulated, not focusing or tracking. NAD. SKIN: Warm and dry. No generalized rash HEENT: Vayas conjunctiva. . No scleral icterus. No injection or drainage. Mucous membranes pink and moist. NECK: Tracheostomy site looks okay. no secretions in tubing seen CARDIOVASCULAR: Regular rate and rhythm. No murmur or rub. RESPIRATORY: diffuse b/l rhonchi ABDOMEN: Soft, obese, non-tender ( no reaction to palpation), mildly to moderately distended. No guarding. No organomegaly. PEG site looks okay. EXTREMITIES: No clubbing, cyanosis, or edema. No joint effusions. NEUROLOGICAL: Opens eyes when stimulated, no interaction. He is not focusing or tracking. PSYCH: Unable to assess ; lopez in place, urine looks fairly clear LINE: Peripheral IV with no evidence of infection Assessment & Plan Remarks IMPRESSION Recurrent fevers, etiology? ? UTI PSAE vs colonizer PNA vs tracheobronchitis New diarrhea, C.diff negative CVA, with significant neurologic sequela Hx NHL RECOMMENDATION dc azactam repeat stool for c.diff if persistent diarrhea dw mother @ b/s Violetta Alvarez MD November 28, 2016 17:00
[2016-11-28] MEDS: PARoxetine HCL SUSP 20 MG/10 ML UDC PEG SCH (17:58)
--- NOTE | 2016-11-28 20:32 | HHI.PR ---
Subjective Remarks 60 YO Male with RF, Encephalopathy On Trach collar Cough on suctioning Family at Awake, some tracking of objects noted Objective Vital Signs Vital Signs Date Time Temp Pulse Resp B/P Pulse Ox O2 Delivery O2 Flow Rate FiO2 11/28/16 16:20 96.6 89 20 112/69 98 11/28/16 12:03 96.8 70 20 115/72 99 11/28/16 11:12 82 11/28/16 10:54 97 Blow By 35 T-Piece Humidified 11/28/16 08:24 100 T-piece 35 11/28/16 07:43 98.1 83 20 118/80 100 11/28/16 04:00 98.7 80 20 110/70 99 11/28/16 00:00 97.7 74 18 101/66 99 I/O 11/27/16 11/27/16 11/27/16 11/28/16 11/28/16 11/28/16 07:00 15:00 23:00 07:00 15:00 23:00 Intake Total 600 ml 2400 ml Output Total 1300 ml 1200 ml 1000 ml 900 ml Balance -700 ml -1200 ml 1400 ml -900 ml IV Total 1200 ml Tube Feeding 600 ml Tube Irrigant 600 ml Other 600 ml Output Urine Total 1300 ml 1200 ml 1000 ml 900 ml # Bowel Movements 1 2 1 1 Objective Remarks GENERAL: Well-nourished, well-developed patient. SKIN: Warm and dry. HEAD: Normocephalic. EYES: No scleral icterus. No injection or drainage. NECK: Supple, trachea midline. No JVD or lymphadenopathy. trach in place CARDIOVASCULAR: Regular rate and rhythm without murmurs, gallops, or rubs. RESPIRATORY: Breath sounds equal bilaterally. No accessory muscle use. GASTROINTESTINAL: Abdomen soft, non-tender, nondistended. MUSCULOSKELETAL: No cyanosis, or edema. BACK: Nontender without obvious deformity. No CVA tenderness. A/P Assessment and Plan Resp Failure, s/p trach Encephalopathy AF DM PLAN: Trach care TF Cont Cristopher DW Family at . Suction srikanthn Aureliano Grove MD November 28, 2016 20:32
--- NOTE | 2016-11-28 23:32 | HHI.PR ---
Subjective Remarks Follow up for left MCA stroke, respiratory failure. Patient's GJ tube is not functioning properly. RN has been unable to flush J tube. Patient remains aphasic, minimally responsive. He had some bloody secretion but currently resolved. Mother reports persistent thick secretion. Objective Vitals Vital Signs Date Time Temp Pulse Resp B/P Pulse Ox O2 Delivery O2 Flow Rate FiO2 11/28/16 16:20 96.6 89 20 112/69 98 11/28/16 12:03 96.8 70 20 115/72 99 11/28/16 11:12 82 11/28/16 10:54 97 Blow By 35 T-Piece Humidified 11/28/16 08:24 100 T-piece 35 11/28/16 07:43 98.1 83 20 118/80 100 11/28/16 04:00 98.7 80 20 110/70 99 11/28/16 00:00 97.7 74 18 101/66 99 I/O 11/27/16 11/27/16 11/27/16 11/28/16 11/28/16 11/28/16 07:00 15:00 23:00 07:00 15:00 23:00 Intake Total 600 ml 2400 ml Output Total 1300 ml 1200 ml 1000 ml 900 ml Balance -700 ml -1200 ml 1400 ml -900 ml IV Total 1200 ml Tube Feeding 600 ml Tube Irrigant 600 ml Other 600 ml Output Urine Total 1300 ml 1200 ml 1000 ml 900 ml # Bowel Movements 1 2 1 1 Imaging Last Impressions Chest X-Ray 11/18/16 1014 Signed Impressions: Service Date/Time: Friday, November 18, 2016 10:14 - CONCLUSION: Lungs are clear. Mikie Vargas MD Tube Change 11/18/16 0000 Signed Impressions: Service Date/Time: Friday, November 18, 2016 17:38 - CONCLUSION: Uncomplicated gastrojejunostomy tube exchange as above. Jonel Jones Jr., MD Abdomen X-Ray 08/31/16 0000 Signed Impressions: Service Date/Time: Wednesday, August 31, 2016 16:36 - CONCLUSION: 1. No acute findings. Mild constipation. Durga Dotson MD Abdomen/Pelvis CT 04/12/16 0000 Signed Impressions: Service Date/Time: Tuesday, April 12, 2016 20:52 - CONCLUSION: 1. 6.4 cm necrotic mass or abscess in the soft tissues posteriorly just below the sacrum associated with some bony destructive change of the lower most sacrum and coccyx with inflammatory changes extending into the ischiorectal fossa and into the presacral retroperitoneum predominantly on the left side. There is associated fairly marked mural thickening of the anal verge and rectum. 2. There is gastrostomy and Arevalo catheter present. Stable abdominal aortic aneurysm. Durga Dotson MD Head Magnetic Resonance Angiography 03/05/16 0000 Signed Impressions: Service Date/Time: Saturday, March 05, 2016 09:26 - CONCLUSION: Persistent high-grade subtotal occlusive stenotic lesions in the distal right vertebral artery and proximal basilar artery with significant improvement in flow and recanalization following initial presentation of thrombosis. Stable interstitial circulation without significant stenosis. 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 There is decreasing restricted diffusion and increasing loss of volume characteristic of a subacute to chronic infarct. No evidence of acute infarct, acute hemorrhage mass or edema. Ernesto Kulkarni MD Head CT 01/16/16 0000 Signed Impressions: Service Date/Time: Saturday, January 16, 2016 10:51 - CONCLUSION: No extensive low density in the brainstem colin more prominent in the right the left extending into the right middle cerebellar peduncle consistent with brainstem infarct nonhemorrhagic acute Wellington West MD Neck Magnetic Resonance Angiography 12/22/15 1445 Signed Impressions: Service Date/Time: Tuesday, December 22, 2015 09:22 - CONCLUSION: Variant origin of the left vertebral artery from the aortic arch. No evidence of carotid stenosis. Glen Zamora MD Head/Brain Mag Res Venography 12/22/15 0000 Signed Impressions: Service Date/Time: Tuesday, December 22, 2015 09:22 - CONCLUSION: Normal MRV. Jonel Jones Jr., MD Objective Remarks GENERAL: Tracks with eyes. No verbal communication. SKIN: Warm and dry. HEAD: Normocephalic. EYES: No scleral icterus. No injection or drainage. NECK: Supple, trachea midline. No JVD or lymphadenopathy. CARDIOVASCULAR: Regular rate and rhythm without murmurs, gallops, or rubs. RESPIRATORY: Coarse breath sounds. No accessory muscle use. GASTROINTESTINAL: Abdomen soft, non-tender, nondistended. MUSCULOSKELETAL: No cyanosis, or edema. BACK: Nontender without obvious deformity. No CVA tenderness. Procedures 01/02/16 PEG placement 01/02/16 tracheostomy 07/22/2016 Wide excision of sacral skin wound, biopsy of the cavity lining and debridement. PEG tube replacement 07/29/16 VAC changes- M-W-F 10/23- GJ tube replacement Date of Insertion: Oct 12, 2016 A/P Problem List: (1) CVA (cerebral vascular accident) ICD Code: I63.9 Status: Acute (2) A-fib ICD Code: I48.91 Status: Chronic (3) DM (diabetes mellitus) ICD Code: E11.9 Status: Chronic Assessment and Plan 60-year-old male with past medical history of paroxysmal atrial fibrillation, hypertension, stage III a non-Hodgkin's lymphoma status post a chemotherapy last year. He came to the hospital with altered mental status, facial droop. Patient with significant deficit from CVA. - Acute on Chronic respiratory failure - Currently stable. Maintain trach/T piece. Pulmonary following. O2 sat > 92% . - We'll continue Mucomyst with breathing tx. 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 - Continue Keppra for seizure prophylaxis. reconsulted PT/OT per family request - Need placement. Difficult. Appreciate case management assistance. - Clogged PEG tube on 10/14, 10/23, and again on 11/17. - PEG tube changed on 11/18/2016. - tube feedings Changed to Glucerna 1.0 at 50 ml per hour. juvena one pack BID. mix with 6 oz of water and flush into feeding tube. - continues to have diarrhea, c.diff and work up negative. - GJ tube not functioning. RN contacted special procedures and one of the special procedure team was requested to come to the floor to re-assess GJ tube function. - Atrial fibrillation -Continue rate control with Cardizem and metoprolol. Echocardiogram in November 2015 shows preserved ejection fraction. -Coumadin discontinued secondary to bleeding. Rate controlled. Continue aspirin and prophylactic heparin dose. - Decreased Cardizem frequency and reduced metoprolol from 50mg to 25mg. - History of non-Hodgkin's lymphoma - Status post brain biopsy on December 13 by neurosurgery. Pathology consistent with acute infarct without evidence of lymphoma. - Oncology has signed Off - Diabetes mellitus -Hemoglobin A1c is 7. Monitor Accu-Cheks and cover with sliding scale insulin. Overall blood sugar continues well controlled. - Decubitus ulcer stage IV -Continue wound care, twice-daily dressing changes. Wound care recommendations. Continue pressure relief measures including turning and positioning. Patient's family has declined a diverting colostomy. Previous Wound culture growing Klebsiella. on Augmentin. Status post wide excision of sacral skin and biopsy of the cavity lining with debridement on 07/22/16. ID specialist recommended to continue on Amoxicillin and Cefepime for two months will be until the end of September or first days of October. - Gastric ulcer, reflux esophagitis - EGD on 07/30/16 showed gastric ulcers. Appreciate GI recommendations. Continue PPI. H&H stable. - Urine and Sputum culture growing Pseudomonas - Aztreonam discontinued on 11/28/2016. ID following. - Anemia Hemoglobin 9.1 stable DVT prophylaxis on Heparin Discharge Planning dc planning to SNF-no funding- SSI pending. Problem Qualifiers (1) DM (diabetes mellitus): Qualified Code: E11.9 - Type 2 diabetes mellitus without complications Birdie Leal DO November 28, 2016 23:32
[2016-11-29] VITALS (10 sets, daily range): BP systolic 102–125; BP diastolic 65–73; PULSE 79–98; RESP 18–20; TEMP 96.9–99; O2SAT 95–100
[2016-11-29] MEDS: DILTIAZEM HCL 30 MG TAB PEG SCH ×2 (00:57→13:00)
[2016-11-29] MEDS: FREE WATER TUBE SCH ×6 (04:00→23:43)
[2016-11-29] MEDS: INSULIN ASPART SUPPLEMENTAL SCALE SQ SCH (06:28)
[2016-11-29] MEDS: ACETIC ACID 0.25% SOLN 1000 ML IRR BTL IRRIGATION SCH ×3 (06:30→21:29)
[2016-11-29] MEDS: HEPARIN SODIUM - SQ 10,000 UNITS/ML VIAL SQ SCH ×3 (06:31→21:28)
[2016-11-29] MEDS: SODIUM CHLORIDE 0.65% NASAL SPRAY 45 ML BTL NASAL SCH ×2 (08:19→21:00)
[2016-11-29] MEDS: ARTIFICIAL TEARS OPTH SOLN 15 ML BTL EACH EYE SCH ×2 (08:19→23:42)
[2016-11-29] MEDS: POTASSIUM CHLORIDE 25 MEQ EFFERVESCENT TAB TUBE SCH (08:20)
[2016-11-29] MEDS: BACITRACIN TOP OINT 15 GM TUBE TOP SCH ×2 (08:20→23:42)
[2016-11-29] MEDS: METOPROLOL TARTRATE 50 MG TAB PO SCH ×2 (08:20→21:00)
[2016-11-29] MEDS: NYSTATIN 100,000 U/GM PWD 15 GM BTL TOPICAL SCH ×2 (08:20→23:43)
[2016-11-29] MEDS: KETOCONAZOLE 2% CREAM 15 GM TOPICAL SCH ×2 (08:20→21:00)
[2016-11-29] MEDS: ASPIRIN 325 MG TAB TUBE SCH (08:20)
[2016-11-29] MEDS: levETIRAcetam 500 MG/5 ML UDC TUBE SCH ×2 (08:32→21:28)
[2016-11-29] MEDS: PANTOPRAZOLE SODIUM 40 MG VIAL IV PUSH SCH ×2 (11:19→21:29)
[2016-11-29] MEDS: PARoxetine HCL SUSP 20 MG/10 ML UDC PEG SCH (18:20)
--- NOTE | 2016-11-29 18:40 | HHI.PR ---
Subjective Remarks 60 YO Male with RF, Encephalopathy On Trach collar Cough on suctioning Awake, some tracking of objects noted Mother at BS Objective Vital Signs Vital Signs Date Time Temp Pulse Resp B/P Pulse Ox O2 Delivery O2 Flow Rate FiO2 11/29/16 18:08 95 T-piece 6.00 28 11/29/16 18:07 95 T-piece 6.00 28 11/29/16 16:00 97.6 81 18 111/73 95 11/29/16 11:36 97.3 79 20 104/65 98 11/29/16 08:43 99 T-piece 5.00 28 11/29/16 08:43 99 T-piece 5.00 28 11/29/16 07:58 97.2 98 20 109/72 96 11/29/16 05:45 99.0 89 19 102/69 100 11/29/16 00:30 98.1 80 18 125/67 98 11/28/16 20:22 95 T-piece 35 11/28/16 20:22 95 T-piece 35 I/O 11/28/16 11/28/16 11/28/16 11/29/16 11/29/16 11/29/16 07:00 15:00 23:00 07:00 15:00 23:00 Intake Total 2400 ml 0 ml 1200 ml Output Total 1000 ml 900 ml 800 ml 1100 ml Balance 1400 ml -900 ml -800 ml 100 ml Intake Oral 0 ml 0 ml IV Total 1200 ml Tube Feeding 600 ml 600 ml Tube Irrigant 600 ml Other 600 ml Output Urine Total 1000 ml 900 ml 800 ml 1100 ml # Bowel Movements 1 1 0 0 Objective Remarks GENERAL: Well-nourished, well-developed patient. SKIN: Warm and dry. HEAD: Normocephalic. EYES: No scleral icterus. No injection or drainage. NECK: Supple, trachea midline. No JVD or lymphadenopathy. trach in place CARDIOVASCULAR: Regular rate and rhythm without murmurs, gallops, or rubs. RESPIRATORY: Breath sounds equal bilaterally. No accessory muscle use. GASTROINTESTINAL: Abdomen soft, non-tender, nondistended. MUSCULOSKELETAL: No cyanosis, or edema. BACK: Nontender without obvious deformity. No CVA tenderness. A/P Assessment and Plan Resp Failure, s/p trach Encephalopathy AF DM PLAN: Trach care TF Cont Cristopher DW Family at . Suction prn Aureliano Grove MD November 29, 2016 18:40
--- NOTE | 2016-11-29 19:01 | PD.CONS ---
HPI Service Rehabilitation Medicine Consult Requested By HANS Reason for Consult Comprehensive rehabilitation evaluation. Primary Care Physician Non-Staff History of Present Illness Vilma Flores is a 60 year old right hand dominant male admitted to [facility] 12/21/15 with change in mental status. Brain MRI showed restricted diffusion left occipital lobe and extension of previous right occipital infarct with enhancement and right cerebellar restricted diffusion. He required trach and PEG 01/02/16. Repeat MRI 03/05/16 showed evolving brainstem and bilateral occipital lobe infarcts with subacute hemorrhagic products. He underwent wide excision of sacral wound with biopsy and debridement 07/22/16. Review of Systems ROS Limitations: Speech Impaired Past Family Social History Allergies: Coded Allergies: *MDRO Multi-Drug Resistant Organism (Verified Adverse Reaction, Unknown, ) MRSA (sputum) - 03/08/16, 04/03/2016 MDR-Pseudomonas Aeruginosa (urine)-08/25/16 Past Medical History Atrial fibrillation HTN Stage3 non-Hodgkin's lymphoma S/P chemotherapy DM Hypercholesterolemia Past Surgical History Brain biopsy Left arm surgery Current Medications Current Medications Medications (Trade) Dose Ordered Sig/Junior Route Start Time Stop Time Status Last Admin (NS Flush) 2 ml UNSCH PRN IVF 12/21/15 06:00 09/28/16 21:18 (Keppra Liq) 500 mg Q12HR TUBE 12/27/15 21:00 11/29/16 08:32 (Tylenol 650 Mg/ 20 ml Liq) 650 mg Q6H PRN TUBE 12/30/15 15:15 11/14/16 21:18 (Mycostatin Powder) 1 applic Q12HR TOPICAL 01/08/16 21:00 11/29/16 08:20 (Pill Splitter) 1 ea UNSCH PRN OTHER 01/14/16 08:30 (Acetic Acid 0.25% Irr Btl) 10 ml Q8HR IRRIGATION 02/05/16 16:00 11/29/16 14:57 (Ativan Inj) 0.5 mg Q4H PRN IV PUSH 03/07/16 23:00 (Paxil Liq) 20 mg DAILY@1900 PEG 03/12/16 19:00 11/29/16 18:20 (Levemir Inj) 35 units HS SQ 03/24/16 21:00 Hold 11/15/16 22:06 (Levsin) 0.25 mg Q4H PRN G-TUBE 04/11/16 10:30 08/31/16 05:02 (Zofran Inj) 4 mg Q6HR PRN IV PUSH 04/14/16 19:45 08/10/16 10:16 (Free Water) 200 ml Q4HR TUBE 04/16/16 12:00 11/29/16 16:30 (D50w (Vial) Inj) 25 ml UNSCH PRN IV 04/20/16 12:00 (Glucagon Inj) 1 mg UNSCH PRN IM/SQ 04/20/16 12:00 (K-Lyte Cl Eff) 25 meq DAILY TUBE 05/28/16 09:00 11/29/16 08:20 (Aspirin) 325 mg DAILY TUBE 05/27/16 11:40 11/29/16 08:20 (Heparin Inj) 5,000 units Q8HR SQ 06/11/16 14:00 11/29/16 14:57 (Baciguent Oint) 1 applic BID TOP 07/20/16 10:00 11/29/16 08:20 (Protonix Inj) 40 mg Q12H IV PUSH 07/30/16 10:15 11/29/16 11:19 ([place] Angel [place]) 1 spray BID NASAL 08/01/16 21:00 11/29/16 08:19 (Colace Liq) 100 mg BID PO 08/30/16 21:00 Hold 11/20/16 08:03 (Lactulose Liq) 30 ml DAILY PO 09/02/16 15:30 Hold 11/20/16 08:03 (Tears Naturale Opth Soln) 1 drop BID EACH EYE 09/05/16 21:00 11/29/16 08:19 (Morphine Inj) 1 mg Q24H PRN IV PUSH 09/17/16 14:30 10/22/16 02:00 (Nizoral 2% Cream) 1 applic Q12HR TOPICAL 09/24/16 21:00 11/29/16 08:20 (Senna Liq) 8.8 mg DAILY@1600 PO 09/25/16 17:00 Hold 11/12/16 16:45 (Fleets Enema (Adult)) 133 ml UNSCH PRN MD 09/25/16 16:00 (Dulcolax Supp) 10 mg DAILY PRN RECTAL 09/26/16 15:30 4/17 12:53 (Milk Of Magntram Liq) 30 ml DAILY PRN PO 10/13/16 14:30 11/25/16 16:40 ([place] 5-325 Mg) 1 tab Q6H PRN PO 10/13/16 18:45 11/23/16 21:43 (Flexeril) 5 mg HS PRN PO 10/14/16 14:15 10/22/16 21:17 (Cardizem) 30 mg Q12H PEG 11/20/16 01:00 11/29/16 00:57 (Lopressor) 25 mg BID PO 11/19/16 21:00 11/29/16 08:20 Loperamide HCl 2 mg 2 mg Q6H PRN PO 11/20/16 15:30 11/21/16 02:04 (NS 1000 ml Inj) 1,000 ml @ 30 mls/hr Q24H IV 11/28/16 19:45 11/28/16 19:45 Family History Unable to obtain Social History Prior to admission patient lived in [place], [place] Exam I&O / VS 11/28/16 11/28/16 11/29/16 15:00 23:00 07:00 Intake Total 0 ml 1200 ml Output Total 900 ml 800 ml 1100 ml Balance -900 ml -800 ml 100 ml Intake Oral 0 ml 0 ml Tube Feeding 600 ml Other 600 ml Output Urine Total 900 ml 800 ml 1100 ml # Bowel Movements 1 0 0 Vital Signs Date Time Temp Pulse Resp B/P Pulse Ox O2 Delivery O2 Flow Rate FiO2 11/29/16 18:08 95 T-piece 6.00 28 11/29/16 18:07 95 T-piece 6.00 28 11/29/16 16:00 97.6 81 18 111/73 95 11/29/16 11:36 97.3 79 20 104/65 98 11/29/16 08:43 99 T-piece 5.00 28 11/29/16 08:43 99 T-piece 5.00 28 11/29/16 07:58 97.2 98 20 109/72 96 11/29/16 05:45 99.0 89 19 102/69 100 11/29/16 00:30 98.1 80 18 125/67 98 11/28/16 20:22 95 T-piece 35 11/28/16 20:22 95 T-piece 35 General: No acute distress Respiratory: Lungs CTA, Non-labored respirations, BS equal (Decreased breath sounds in bases bilaterally) Gastrointestinal: Positive Bowel Sounds, Non-Distended Cardiovascular: Normal rate, Irregular Rhythm Skin: Other (Sacral wound with dressing in place with serosanguinous drainage) Musculoskeletal: ROM (Within functional limits) Psychiatric: Cooperative Orientation: unable to asses Self, unable to asses Place, unable to asses Time , unable to asses Situation Neurologic: Pupils (PERRLA), EOM (Tracks right and left), Speech (Nonverbal), Other (No spontaneous or voluntary movement in extremities.) Clonus: Negative Assessment and Plan Diagnosis: (1) CVA (cerebral vascular accident) Laterality of affected vessel: bilateral Assessment 1. Bilateral occipital/brainstem CVA with quadriplegia, dysphagia S/P PEG and inability to communicate 2. Sacral wound grade 4 3. Atrial fibrillation 4. HTN 5. Non-Hodgkin lymphoma stage 3 S/P chemotherapy 6. DM Plan 1. PT and OT providing ROM and positioning 2. ST re-consulted for communication with tracking or eye blink 3. Turn and reposition q 2 hours. Wound care following 4. Will need skilled placement and case management is referring but difficulty finding accepting facility due to level of care 5. Will follow while hospitalized and at discharge as appropriate. Thank you for this consult. Marla Pickens MD November 29, 2016 19:01
--- NOTE | 2016-11-29 19:10 | HHI.PR ---
Subjective Remarks patient seen this morning around 11 AM. Patient uses system of wide-open blinking to indicate answers to yes or no questions. He appears to deny any pain or shortness of breath. Objective Vital Signs Date Time Temp Pulse Resp B/P Pulse Ox O2 Delivery O2 Flow Rate FiO2 11/29/16 18:08 95 T-piece 6.00 28 11/29/16 18:07 95 T-piece 6.00 28 11/29/16 16:00 97.6 81 18 111/73 95 11/29/16 11:36 97.3 79 20 104/65 98 11/29/16 08:43 99 T-piece 5.00 28 11/29/16 08:43 99 T-piece 5.00 28 11/29/16 07:58 97.2 98 20 109/72 96 11/29/16 05:45 99.0 89 19 102/69 100 11/29/16 00:30 98.1 80 18 125/67 98 11/28/16 20:22 95 T-piece 35 11/28/16 20:22 95 T-piece 35 I/O 11/28/16 11/28/16 11/28/16 11/29/16 11/29/16 11/29/16 07:00 15:00 23:00 07:00 15:00 23:00 Intake Total 2400 ml 0 ml 1200 ml Output Total 1000 ml 900 ml 800 ml 1100 ml Balance 1400 ml -900 ml -800 ml 100 ml Intake Oral 0 ml 0 ml IV Total 1200 ml Tube Feeding 600 ml 600 ml Tube Irrigant 600 ml Other 600 ml Output Urine Total 1000 ml 900 ml 800 ml 1100 ml # Bowel Movements 1 1 0 0 Procedures 01/02/16 PEG placement 01/02/16 tracheostomy 07/22/2016 Wide excision of sacral skin wound, biopsy of the cavity lining and debridement. PEG tube replacement 07/29/16 Objective Remarks GENERAL: revision sitting up in bed. Appears comfortable. Nonverbal. Indicates with eyes SKIN: Warm and dry. HEAD: Normocephalic. EYES: No scleral icterus. No injection or drainage. NECK: Supple, trachea midline. No JVD. CARDIOVASCULAR: Regular rate and rhythm without murmurs, gallops, or rubs. RESPIRATORY: Breath sounds equal bilaterally. No accessory muscle use. GASTROINTESTINAL: Abdomen soft, non-tender, nondistended. PEG tube with no surrounding erythema. MUSCULOSKELETAL: No cyanosis, or edema. BACK: Nontender without obvious deformity. No CVA tenderness. A/P Assessment and Plan 11/29/16. Patient seen and examined. No acute changes. 60-year-old male with past medical history of paroxysmal atrial fibrillation, hypertension, stage III a non-Hodgkin's lymphoma status post a chemotherapy last year. He came to the hospital with altered mental status, facial droop. Patient with significant deficit from CVA. //Acute on Chronic respiratory failure - Currently stable. Maintain trach/T piece. Pulmonary following. O2 sat > 92% . - We'll continue Mucomyst with breathing tx. //CVA/Paraplegia/Global Apraxia. 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 - Continue Keppra for seizure prophylaxis. reconsulted PT/OT per family request - Need placement. Difficult. Appreciate case management assistance. //Clogged PEG tube on 10/14, 10/23, and again on 11/17. - PEG tube changed on 11/18/2016. - tube feedings Changed to Glucerna 1.0 at 50 ml per hour. juvena one pack BID. mix with 6 oz of water and flush into feeding tube. - continues to have diarrhea, c.diff and work up negative. - GJ tube not functioning. RN contacted special procedures and one of the special procedure team was requested to come to the floor to re-assess GJ tube function. //Atrial fibrillation -Continue rate control with Cardizem and metoprolol. Echocardiogram in November 2015 shows preserved ejection fraction. -Coumadin discontinued secondary to bleeding. Rate controlled. Continue aspirin and prophylactic heparin dose. - Decreased Cardizem frequency and reduced metoprolol from 50mg to 25mg. //History of non-Hodgkin's lymphoma - Status post brain biopsy on December 13 by neurosurgery. Pathology consistent with acute infarct without evidence of lymphoma. - Oncology has signed Off //Diabetes mellitus -Hemoglobin A1c is 7. Monitor Accu-Cheks and cover with sliding scale insulin. Overall blood sugar continues well controlled. //Decubitus ulcer stage IV -Continue wound care, twice-daily dressing changes. Wound care recommendations. Continue pressure relief measures including turning and positioning. Patient's family has declined a diverting colostomy. Previous Wound culture growing Klebsiella. on Augmentin. Status post wide excision of sacral skin and biopsy of the cavity lining with debridement on 07/22/16. ID specialist recommended to continue on Amoxicillin and Cefepime for two months will be until the end of September or first days of October. //Gastric ulcer, reflux esophagitis - EGD on 07/30/16 showed gastric ulcers. Appreciate GI recommendations. Continue PPI. H&H stable. //Urine and Sputum culture growing Pseudomonas - Aztreonam discontinued on 11/28/2016. ID following. //Anemia Hemoglobin 9.1 stable DVT prophylaxis on Heparin Discharge Planning appreciate case management assistance. Ramiro Rucker MD November 29, 2016 19:10
[2016-11-29] MEDS: SODIUM CHLOR 0.9% 1000 ML INJ 1,000 ML IV SCH (21:28)
[2016-11-30] VITALS (8 sets, daily range): BP systolic 100–113; BP diastolic 62–80; PULSE 81–104; RESP 18–20; TEMP 96.6–98.7; O2SAT 93–100
[2016-11-30] MEDS: DILTIAZEM HCL 30 MG TAB PEG SCH ×2 (01:00→12:50)
[2016-11-30] MEDS: FREE WATER TUBE SCH ×5 (04:00→20:00)
[2016-11-30] MEDS: ACETIC ACID 0.25% SOLN 1000 ML IRR BTL IRRIGATION SCH ×2 (05:33→13:47)
[2016-11-30] MEDS: HEPARIN SODIUM - SQ 10,000 UNITS/ML VIAL SQ SCH ×3 (05:34→22:00)
[2016-11-30] MEDS: INSULIN ASPART SUPPLEMENTAL SCALE SQ SCH (06:45)
[2016-11-30] MEDS: KETOCONAZOLE 2% CREAM 15 GM TOPICAL SCH ×2 (09:00→21:00)
[2016-11-30] MEDS: POTASSIUM CHLORIDE 25 MEQ EFFERVESCENT TAB TUBE SCH (09:30)
[2016-11-30] MEDS: ASPIRIN 325 MG TAB TUBE SCH (09:31)
[2016-11-30] MEDS: levETIRAcetam 500 MG/5 ML UDC TUBE SCH ×2 (09:31→21:59)
[2016-11-30] MEDS: METOPROLOL TARTRATE 50 MG TAB PO SCH ×2 (09:31→21:00)
[2016-11-30] MEDS: BACITRACIN TOP OINT 15 GM TUBE TOP SCH ×2 (09:32→22:14)
[2016-11-30] MEDS: SODIUM CHLORIDE 0.65% NASAL SPRAY 45 ML BTL NASAL SCH ×2 (09:32→22:14)
[2016-11-30] MEDS: NYSTATIN 100,000 U/GM PWD 15 GM BTL TOPICAL SCH (09:32)
[2016-11-30] MEDS: ARTIFICIAL TEARS OPTH SOLN 15 ML BTL EACH EYE SCH ×2 (09:33→22:14)
[2016-11-30] MEDS: PANTOPRAZOLE SODIUM 40 MG VIAL IV PUSH SCH ×2 (10:15→22:08)
[2016-11-30] MEDS: PARoxetine HCL SUSP 20 MG/10 ML UDC PEG SCH (17:59)
[2016-11-30] MEDS: SODIUM CHLOR 0.9% 1000 ML INJ 1,000 ML IV SCH ×2 (19:45→22:17)
[2016-11-30] MEDS: MAGNESIUM HYDROXIDE SUSP 30 ML CUP PO PRN (22:04)
--- NOTE | 2016-11-30 23:56 | HHI.PR ---
Subjective Remarks patient seen today around 1 PM. No acute changes.family members at bedside asking for something to prevent constipation. Objective Vital Signs Date Time Temp Pulse Resp B/P Pulse Ox O2 Delivery O2 Flow Rate FiO2 11/30/16 20:49 97.9 90 18 102/70 98 11/30/16 17:59 98 Blow By 35 T-Piece Humidified 11/30/16 16:00 98.0 81 20 100/62 97 11/30/16 12:30 100 T-piece 28 11/30/16 12:00 98.7 104 20 113/75 99 11/30/16 08:00 96.6 92 20 100/64 93 11/30/16 05:40 98.3 85 19 112/80 99 11/30/16 01:52 84 100 11/30/16 00:00 97.7 84 19 110/68 99 I/O 11/29/16 11/29/16 11/29/16 11/30/16 11/30/16 11/30/16 07:00 15:00 23:00 07:00 15:00 23:00 Intake Total 1200 ml 0 ml 0 ml Output Total 1100 ml 800 ml 1000 ml 425 ml 1420 ml Balance 100 ml -800 ml -1000 ml -425 ml -1420 ml Intake Oral 0 ml 0 ml 0 ml Tube Feeding 600 ml Other 600 ml Output Urine Total 1100 ml 800 ml 1000 ml 425 ml 1420 ml # Bowel Movements 0 0 0 0 0 Procedures 01/02/16 PEG placement 01/02/16 tracheostomy 07/22/2016 Wide excision of sacral skin wound, biopsy of the cavity lining and debridement. PEG tube replacement 07/29/16 Objective Remarks GENERAL: revision sitting up in bed. Appears comfortable. patient sleeping. Family member bedside indicates not to wake him up for exam. SKIN: Warm and dry. HEAD: Normocephalic. EYES: No scleral icterus. No injection or drainage. NECK: Supple, trachea midline. No JVD. CARDIOVASCULAR: Regular rate and rhythm without murmurs, gallops, or rubs. RESPIRATORY: Breath sounds equal bilaterally. No accessory muscle use. GASTROINTESTINAL: Abdomen soft, non-tender, nondistended. PEG tube with no surrounding erythema. MUSCULOSKELETAL: No cyanosis, or edema. BACK: Nontender without obvious deformity. No CVA tenderness. A/P Assessment and Plan 11/30/16. Patient seen and examined again. Patient asking for medications for constipation, however nurses report bowel movements. Otherwise, No acute changes. 60-year-old male with past medical history of paroxysmal atrial fibrillation, hypertension, stage III a non-Hodgkin's lymphoma status post a chemotherapy last year. He came to the hospital with altered mental status, facial droop. Patient with significant deficit from CVA. //Acute on Chronic respiratory failure - Currently stable. Maintain trach/T piece. Pulmonary following. O2 sat > 92% . - We'll continue Mucomyst with breathing tx. //CVA/Paraplegia/Global Apraxia. 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 - Continue Keppra for seizure prophylaxis. reconsulted PT/OT per family request - Need placement. Difficult. Appreciate case management assistance. //Clogged PEG tube on 10/14, 10/23, and again on 11/17. - PEG tube changed on 11/18/2016. - tube feedings Changed to Glucerna 1.0 at 50 ml per hour. juvena one pack BID. mix with 6 oz of water and flush into feeding tube. - continues to have diarrhea, c.diff and work up negative. - GJ tube not functioning. RN contacted special procedures and one of the special procedure team was requested to come to the floor to re-assess GJ tube function. //Atrial fibrillation -Continue rate control with Cardizem and metoprolol. Echocardiogram in November 2015 shows preserved ejection fraction. -Coumadin discontinued secondary to bleeding. Rate controlled. Continue aspirin and prophylactic heparin dose. - Decreased Cardizem frequency and reduced metoprolol from 50mg to 25mg. //History of non-Hodgkin's lymphoma - Status post brain biopsy on December 13 by neurosurgery. Pathology consistent with acute infarct without evidence of lymphoma. - Oncology has signed Off //Diabetes mellitus -Hemoglobin A1c is 7. Monitor Accu-Cheks and cover with sliding scale insulin. Overall blood sugar continues well controlled. //Decubitus ulcer stage IV -Continue wound care, twice-daily dressing changes. Wound care recommendations. Continue pressure relief measures including turning and positioning. Patient's family has declined a diverting colostomy. Previous Wound culture growing Klebsiella. on Augmentin. Status post wide excision of sacral skin and biopsy of the cavity lining with debridement on 07/22/16. ID specialist recommended to continue on Amoxicillin and Cefepime for two months will be until the end of September or first days of October. //Gastric ulcer, reflux esophagitis - EGD on 07/30/16 showed gastric ulcers. Appreciate GI recommendations. Continue PPI. H&H stable. //Urine and Sputum culture growing Pseudomonas - Aztreonam discontinued on 11/28/2016. ID following. //Anemia Hemoglobin 9.1 stable DVT prophylaxis on Heparin Discharge Planning appreciate case management assistance. Ramiro Rucker MD November 30, 2016 23:56
[2016-12-01 00:50] VITALS: BP 117/75; PULSE 87; RESP 18; TEMP 97.7; O2SAT 96
[2016-12-01] MEDS: DILTIAZEM HCL 30 MG TAB PEG SCH ×2 (01:25→13:00)
[2016-12-01] MEDS: ACETIC ACID 0.25% SOLN 1000 ML IRR BTL IRRIGATION SCH ×4 (01:25→22:50)
[2016-12-01] MEDS: NYSTATIN 100,000 U/GM PWD 15 GM BTL TOPICAL SCH ×3 (01:25→20:30)
[2016-12-01 02:22] LABS: MEAN CORPUSCULAR HGB CONC 29.3 % (32.0-36.0)
[2016-12-01] MEDS: FREE WATER TUBE SCH ×7 (04:00→22:48)
[2016-12-01 05:25] VITALS: BP 117/70; PULSE 80; RESP 18; TEMP 97.9; O2SAT 99
[2016-12-01] MEDS: HEPARIN SODIUM - SQ 10,000 UNITS/ML VIAL SQ SCH ×3 (05:25→22:49)
[2016-12-01] MEDS: INSULIN ASPART SUPPLEMENTAL SCALE SQ SCH (06:42)
[2016-12-01 07:50] LABS: AUTOMATED NEUTROPHIL # 2.4 TH/MM3 (1.8-7.7); BASOPHIL % 1.2 % (0.0-2.0); EOSINOPHIL # 0.1 TH/MM3 (0-0.4); EOSINOPHIL % 2.9 % (0.0-4.0); HEMATOCRIT 34.5 % (39.0-51.0); LYMPH % 28.1 % (9.0-44.0); LYMPHOCYTE # 1.1 TH/MM3 (1.0-4.8); MEAN CELL VOLUME 74.7 FL (80.0-100.0); MEAN CORPUSCULAR HEMOGLOBIN 21.9 PG (27.0-34.0); MONO % 8.5 % (0.0-8.0); NEUT % 59.3 % (16.0-70.0); PLATELET COUNT 211 TH/MM3 (150-450); RED BLOOD COUNT 4.62 MIL/MM3 (4.50-5.90); RED CELL DISTRIBUTION WIDTH 20.7 % (11.6-17.2)
[2016-12-01 07:51] LABS: HEMO FLAGS AUTO DIFF
[2016-12-01 08:00] VITALS: BP 119/71; PULSE 88; RESP 20; TEMP 97.9; O2SAT 98
[2016-12-01 08:19] LABS: BICARBONATE 24.7 MEQ/L (21.0-32.0); POTASSIUM 4.2 MEQ/L (3.5-5.1)
[2016-12-01] MEDS: KETOCONAZOLE 2% CREAM 15 GM TOPICAL SCH ×2 (09:00→20:32)
[2016-12-01 09:11] LABS: SCAN/DIFF AUTO DIFF CONFIRMED
[2016-12-01 09:24] VITALS: O2SAT 99
[2016-12-01] MEDS: ASPIRIN 325 MG TAB TUBE SCH (09:52)
--- NOTE | 2016-12-01 09:52 | HHI.PR ---
Subjective Remarks PT seen and examined this morning. Vitals are stable and he is afebrile. T piece in place. No changes overall. His prognosis remains poor and unchanged. Mother is at bedside. Having regular BM. Mother states patient has seemed more sleepy recently. Objective Vital Signs Date Time Temp Pulse Resp B/P Pulse Ox O2 Delivery O2 Flow Rate FiO2 12/01/16 09:24 99 T-piece 5.00 28 12/01/16 09:24 99 T-piece 5.00 28 12/01/16 08:00 97.9 88 20 119/71 98 12/01/16 05:25 97.9 80 18 117/70 99 12/01/16 00:50 97.7 87 18 117/75 96 11/30/16 20:49 97.9 90 18 102/70 98 11/30/16 17:59 98 Blow By 35 T-Piece Humidified 11/30/16 16:00 98.0 81 20 100/62 97 11/30/16 12:30 100 T-piece 28 11/30/16 12:00 98.7 104 20 113/75 99 I/O 11/30/16 11/30/16 11/30/16 12/01/16 12/01/16 12/01/16 07:00 15:00 23:00 07:00 15:00 23:00 Intake Total 0 ml 1530 ml Output Total 1000 ml 425 ml 1420 ml Balance -1000 ml -425 ml -1420 ml 1530 ml Intake Oral 0 ml IV Total 330 ml Autotransfusion 600 ml Other 600 ml Output Urine Total 1000 ml 425 ml 1420 ml # Bowel Movements 0 0 0 1 Result Diagram: 12/01/16 0715 12/01/16 0715 Procedures 01/02/16 PEG placement 01/02/16 tracheostomy 07/22/2016 Wide excision of sacral skin wound, biopsy of the cavity lining and debridement. PEG tube replacement 07/29/16 Objective Remarks GENERAL: lying in bed, appears to awaken when stimulated. he appears to be breathing comfortably and is without any pain. SKIN: Warm and dry. No signs of abrasions or rashes on UE and abdomen. LE with SCDs. HEAD: Normocephalic. EYES: No scleral icterus. No injection or drainage. NECK: Supple, trachea midline. No JVD . CARDIOVASCULAR: Regular rate and rhythm without murmurs, gallops, or rubs. RESPIRATORY: Breath sounds equal bilaterally to anterior auscultation. T-piece in place. No accessory muscle use. GASTROINTESTINAL: Abdomen soft, non-tender, nondistended. PEG tube in place with no signs of infection. [place] in place, urine is clear. MUSCULOSKELETAL: No cyanosis, or edema. wound VAC in place as before. BACK: Nontender without obvious deformity. No CVA tenderness. . A/P Problem List: (1) Encephalopathy ICD Code: G93.40 (2) Acute respiratory failure ICD Code: J96.00 (3) A-fib ICD Code: I48.91 (4) CVA (cerebral vascular accident) ICD Code: I63.9 (5) DM (diabetes mellitus) ICD Code: E11.9 (6) APPRENTICE EMBALMER lymphoma ICD Code: C85.89 (7) Non-Hodgkin lymphoma ICD Code: C85.90 Assessment and Plan 09/29/16. Patient seen and examined. monitor PEG tube site closely for any signs of infection again with no acute changes. Patient may be able to go to [facility], case management is working on this. 60 year-old male with: 1. 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 Tracks with his eyes. Continue Keppra for seizure prophylaxis. PT/OT signed off as patient is unable to participate. -Need placement. Difficult. Appreciate case management assistance. 2. Chronic respiratory failure -Secondary to CVA. Status post tracheostomy. Continue pulmonary toilet and bronchodilators as needed. Continue trach care, suctioning. Levsin as needed. -Pulmonary currently following . Appreciate assistance. 3. Atrial fibrillation -Continue rate control with Cardizem and metoprolol. Echocardiogram in November 2015 shows preserved ejection fraction. Coumadin discontinued secondary to bleeding. Rate controlled. Continue aspirin and prophylactic heparin dose. 4. History of non-Hodgkin's lymphoma - Status post brain biopsy on December 13 by neurosurgery. Pathology consistent with acute infarct without evidence of lymphoma. Oncology has signed all 5. Diabetes mellitus -Hemoglobin A1c is 7. Continue Levemir. Monitor Accu-Cheks and cover with sliding scale insulin. Overall blood sugar continues well controlled. 6. Decubitus ulcer stage IV -Continue wound care, twice-daily dressing changes. Wound care recommendations. Continue pressure relief measures including turning and positioning. Patient's family has declined a diverting colostomy. Previous Wound culture growing Klebsiella. on Augmentin. Status post wide excision of sacral skin and biopsy of the cavity lining with debridement on 07/22/16. Continue scheduled [place] every 8 hours. -Continue to monitor for pain. 7. Gastric ulcer, reflux esophagitis - EGD on 07/30/16 showed gastric ulcers. Appreciate GI recommendations. Continue PPI. H&H stable as of last recheck.. 8. UTI pseudomonas aeruginosa treated with abx - Resolved. - Repeat Ucx 08/28/16 negative. 9. Constipation: -Having regular bowel movements. -on lactulose. Monitor. FEN: Continue Nepro tube feeds with free water flushes. Appreciate dietary assistance. DVT prophylaxis: SCDs/ subq heparin Discharge Planning Per CM on 11/29: pt has no payor source for rehab, declined by multiple facilities. Problem Qualifiers (1) CVA (cerebral vascular accident): (2) DM (diabetes mellitus): Qualified Code: E11.9 - Type 2 diabetes mellitus without complications Moira Macias MD R3 December 01, 2016 09:52
[2016-12-01] MEDS: METOPROLOL TARTRATE 50 MG TAB PO SCH ×2 (09:53→20:30)
[2016-12-01] MEDS: levETIRAcetam 500 MG/5 ML UDC TUBE SCH ×2 (09:54→20:29)
[2016-12-01] MEDS: POTASSIUM CHLORIDE 25 MEQ EFFERVESCENT TAB TUBE SCH (09:54)
[2016-12-01] MEDS: PANTOPRAZOLE SODIUM 40 MG VIAL IV PUSH SCH ×2 (10:02→22:49)
[2016-12-01] MEDS: SODIUM CHLORIDE 0.65% NASAL SPRAY 45 ML BTL NASAL SCH ×2 (10:03→20:30)
[2016-12-01] MEDS: ARTIFICIAL TEARS OPTH SOLN 15 ML BTL EACH EYE SCH ×2 (10:03→20:30)
[2016-12-01] MEDS: BACITRACIN TOP OINT 15 GM TUBE TOP SCH ×2 (10:04→20:31)
[2016-12-01 12:30] VITALS: BP 115/78; PULSE 85; RESP 20; TEMP 98; O2SAT 98
[2016-12-01] MEDS: PARoxetine HCL SUSP 20 MG/10 ML UDC PEG SCH (18:12)
[2016-12-01 19:30] VITALS: BP 102/86; PULSE 99; RESP 18; TEMP 96.7; O2SAT 99
[2016-12-02] VITALS (9 sets, daily range): BP systolic 111–127; BP diastolic 69–75; PULSE 74–94; RESP 18–21; TEMP 96.3–97.7; O2SAT 94–99
[2016-12-02] MEDS: DILTIAZEM HCL 30 MG TAB PEG SCH ×2 (02:01→13:18)
[2016-12-02] MEDS: FREE WATER TUBE SCH ×6 (04:00→23:42)
[2016-12-02] MEDS: HEPARIN SODIUM - SQ 10,000 UNITS/ML VIAL SQ SCH ×3 (05:46→21:37)
[2016-12-02] MEDS: ACETIC ACID 0.25% SOLN 1000 ML IRR BTL IRRIGATION SCH ×3 (05:47→21:39)
[2016-12-02] MEDS: INSULIN ASPART SUPPLEMENTAL SCALE SQ SCH (06:15)
[2016-12-02] MEDS: KETOCONAZOLE 2% CREAM 15 GM TOPICAL SCH ×2 (09:00→21:00)
[2016-12-02] MEDS: ASPIRIN 325 MG TAB TUBE SCH (10:10)
[2016-12-02] MEDS: POTASSIUM CHLORIDE 25 MEQ EFFERVESCENT TAB TUBE SCH (10:11)
[2016-12-02] MEDS: levETIRAcetam 500 MG/5 ML UDC TUBE SCH ×2 (10:11→21:00)
[2016-12-02] MEDS: METOPROLOL TARTRATE 50 MG TAB PO SCH ×2 (10:11→21:00)
[2016-12-02] MEDS: ARTIFICIAL TEARS OPTH SOLN 15 ML BTL EACH EYE SCH ×2 (10:12→21:00)
[2016-12-02] MEDS: SODIUM CHLORIDE 0.65% NASAL SPRAY 45 ML BTL NASAL SCH ×2 (10:13→21:00)
[2016-12-02] MEDS: BACITRACIN TOP OINT 15 GM TUBE TOP SCH ×2 (10:14→21:00)
[2016-12-02] MEDS: NYSTATIN 100,000 U/GM PWD 15 GM BTL TOPICAL SCH ×2 (10:15→21:00)
[2016-12-02] MEDS: PANTOPRAZOLE SODIUM 40 MG VIAL IV PUSH SCH ×2 (10:17→21:37)
--- NOTE | 2016-12-02 10:51 | HHI.PR ---
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 Pt is verbally non-responsive. Per RN, while pt is able to blink, yes/no responses there is question about pt's reliability. Pt's was at bedside. Pt's inquired about tube feeding line issue and was told a consult to Interventional Radiology was to be placed requesting replacement of current tube. No new issues noted or reported. Objective Vitals Vital Signs Date Time Temp Pulse Resp B/P Pulse Ox O2 Delivery O2 Flow Rate FiO2 12/02/16 08:00 96.3 94 21 120/74 94 12/02/16 04:00 97.7 78 20 112/74 99 12/02/16 01:00 97.1 87 18 113/69 99 12/01/16 19:30 96.7 99 18 102/86 99 12/01/16 12:30 98.0 85 20 115/78 98 I/O 12/01/16 12/01/16 12/01/16 12/02/16 12/02/16 12/02/16 07:00 15:00 23:00 07:00 15:00 23:00 Intake Total 1530 ml 1000 ml Output Total 1300 ml 800 ml Balance 1530 ml -300 ml -800 ml IV Total 330 ml Tube Feeding 600 ml Autotransfusion 600 ml Tube Irrigant 400 ml Other 600 ml Output Urine Total 1300 ml 800 ml # Bowel Movements 1 2 Result Diagram: 12/01/16 0715 12/01/16 0715 Imaging No new imaging results within the past 24 hours. Objective Remarks GENERAL: Pt encountered laying a bed, awake, appeared to be tracking people in room. SKIN: Warm and dry. HEAD: Normocephalic. EYES: No scleral icterus. No injection or drainage. NECK: Supple, trachea midline. No JVD or lymphadenopathy. CARDIOVASCULAR: Regular rate and rhythm without murmurs, gallops, or rubs. RESPIRATORY: Breath sounds equal bilaterally. No accessory muscle use. Trach tube in place. GASTROINTESTINAL: Abdomen soft, non-tender, nondistended. GJ tube noted, area around insertion was dry and seemingly without leakage. MUSCULOSKELETAL: No cyanosis, or edema. PSYCHIATRIC: Pt non-verbal, he appeared calm and not in distress. Procedures 01/02/16 PEG placement 01/02/16 tracheostomy 07/22/2016 Wide excision of sacral skin wound, biopsy of the cavity lining and debridement. PEG tube replacement 07/29/16 VAC changes- M-W-F 4/5- GJ tube replacement Medications and IVs Current Medications Medications (Trade) Dose Ordered Sig/Junior Route Start Time Stop Time Status Last Admin (NS Flush) 2 ml UNSCH PRN IVF 12/21/15 06:00 09/28/16 21:18 (Keppra Liq) 500 mg Q12HR TUBE 12/27/15 21:00 12/02/16 10:11 (Tylenol 650 Mg/ 20 ml Liq) 650 mg Q6H PRN TUBE 12/30/15 15:15 11/14/16 21:18 (Mycostatin Powder) 1 applic Q12HR TOPICAL 01/08/16 21:00 12/02/16 10:15 (Pill Splitter) 1 ea UNSCH PRN OTHER 01/14/16 08:30 (Acetic Acid 0.25% Irr Btl) 10 ml Q8HR IRRIGATION 02/05/16 16:00 12/02/16 05:47 (Ativan Inj) 0.5 mg Q4H PRN IV PUSH 03/07/16 23:00 (Paxil Liq) 20 mg DAILY@1900 PEG 03/12/16 19:00 12/01/16 18:12 (Levemir Inj) 35 units HS SQ 03/24/16 21:00 Hold 11/15/16 22:06 (Levsin) 0.25 mg Q4H PRN G-TUBE 04/11/16 10:30 08/31/16 05:02 (Zofran Inj) 4 mg Q6HR PRN IV PUSH 04/14/16 19:45 08/10/16 10:16 (Free Water) 200 ml Q4HR TUBE 04/16/16 12:00 12/02/16 10:12 (D50w (Vial) Inj) 25 ml UNSCH PRN IV 04/20/16 12:00 (Glucagon Inj) 1 mg UNSCH PRN IM/SQ 04/20/16 12:00 (K-Lyte Cl Eff) 25 meq DAILY TUBE 05/28/16 09:00 12/02/16 10:11 (Aspirin) 325 mg DAILY TUBE 05/27/16 11:40 12/02/16 10:10 (Heparin Inj) 5,000 units Q8HR SQ 06/11/16 14:00 12/02/16 05:46 (Baciguent Oint) 1 applic BID TOP 07/20/16 10:00 12/02/16 10:14 (Protonix Inj) 40 mg Q12H IV PUSH 07/30/16 10:15 12/02/16 10:17 ([place] Angel Mona) 1 spray BID NASAL 08/01/16 21:00 12/02/16 10:13 (Colace Liq) 100 mg BID PO 08/30/16 21:00 Hold 11/20/16 08:03 (Lactulose Liq) 30 ml DAILY PO 09/02/16 15:30 Hold 11/20/16 08:03 (Tears Naturale Opth Soln) 1 drop BID EACH EYE 09/05/16 21:00 12/02/16 10:12 (Morphine Inj) 1 mg Q24H PRN IV PUSH 09/17/16 14:30 10/22/16 02:00 (Nizoral 2% Cream) 1 applic Q12HR TOPICAL 09/24/16 21:00 11/29/16 08:20 (Senna Liq) 8.8 mg DAILY@1600 PO 09/25/16 17:00 Hold 11/12/16 16:45 (Fleets Enema (Adult)) 133 ml UNSCH PRN IN 09/25/16 16:00 (Dulcolax Supp) 10 mg DAILY PRN RECTAL 09/26/16 15:30 10/20/16 12:53 (Milk Of Magnesia Liq) 30 ml DAILY PRN PO 10/13/16 14:30 11/30/16 22:04 ([place] 5-325 Mg) 1 tab Q6H PRN PO 10/13/16 18:45 11/23/16 21:43 (Flexeril) 5 mg HS PRN PO 10/14/16 14:15 10/22/16 21:17 (Cardizem) 30 mg Q12H PEG 11/20/16 01:00 12/02/16 02:01 (Lopressor) 25 mg BID PO 11/19/16 21:00 12/02/16 10:11 Loperamide HCl 2 mg 2 mg Q6H PRN PO 11/20/16 15:30 11/21/16 02:04 (NS 1000 ml Inj) 1,000 ml @ 30 mls/hr Q24H IV 11/28/16 19:45 11/30/16 22:17 Urinary Catheter: Yes Assessment to: Continue Date of Insertion: Oct 12, 2016 Vascular Central Line Catheter: No A/P Problem List: (1) CVA (cerebral vascular accident) ICD Code: I63.9 Status: Acute (2) A-fib ICD Code: I48.91 Status: Chronic (3) DM (diabetes mellitus) ICD Code: E11.9 Status: Chronic Assessment and Plan 60 year-old male with: //CVA 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 Tracks with his eyes. Continue Keppra for seizure prophylaxis. PT/OT signed off as patient is unable to participate. -Need placement. Difficult. Appreciate case management assistance. 12/02/16: Rehab Medicine (Dr. Pickens) saw pt on 11/29/16, rec's on chart. //Chronic respiratory failure -Secondary to CVA. Status post tracheostomy. Continue pulmonary toilet and bronchodilators as needed. Continue trach care, suctioning. Levsin as needed. -Pulmonary currently following . Appreciate assistance. //Atrial fibrillation -Continue rate control with Cardizem and metoprolol. Echocardiogram in November 2015 shows preserved ejection fraction. Coumadin discontinued secondary to bleeding. Rate controlled. Continue aspirin and prophylactic heparin dose. //History of non-Hodgkin's lymphoma - Status post brain biopsy on December 13 by neurosurgery. Pathology consistent with acute infarct without evidence of lymphoma. Oncology has signed all //Diabetes mellitus -Hemoglobin A1c is 7. Continue Levemir. Monitor Accu-Cheks and cover with sliding scale insulin. Overall blood sugar continues well controlled. //Decubitus ulcer stage IV -Continue wound care, twice-daily dressing changes. Wound care recommendations. Continue pressure relief measures including turning and positioning. Patient's family has declined a diverting colostomy. Previous Wound culture growing Klebsiella. on Augmentin. Status post wide excision of sacral skin and biopsy of the cavity lining with debridement on 07/22/16. Continue scheduled [place] every 8 hours. -Continue to monitor for pain. //Gastric ulcer, reflux esophagitis - EGD on 07/30/16 showed gastric ulcers. Appreciate GI recommendations. Continue PPI. H&H stable as of last recheck.. //UTI pseudomonas aeruginosa treated with abx -Resolved. - Repeat Ucx 08/28/16 negative. -Pt seen by ID (Dr. Alvarez) on 11/28/16. //Constipation: -Having regular bowel movements. -on lactulose. Monitor. -Notes of 11/21/16 indicated pt had diarrhea, he was checked for C. Diff and was negative. Imodium to be used. //FEN: Continue Nepro tube feeds with free water flushes. Appreciate dietary assistance. 12/02/16: Per Dr. Leal, IR to be consulted to replace GJ tube. //DVT prophylaxis: SCDs/ subq heparin. Discussed with pt's (at bedside), RN (at bedside) and Dr. Leal. Discharge Planning Per CM on 11/29: pt has no payor source for rehab, declined by multiple facilities. Problem Qualifiers (1) CVA (cerebral vascular accident): (2) DM (diabetes mellitus): Qualified Code: E11.9 - Type 2 diabetes mellitus without complications Javier Harris Jr. December 02, 2016 10:51
[2016-12-02] MEDS: PARoxetine HCL SUSP 20 MG/10 ML UDC PEG SCH (19:00)
[2016-12-02] MEDS: SODIUM CHLOR 0.9% 1000 ML INJ 1,000 ML IV SCH (19:45)
[2016-12-03] VITALS (10 sets, daily range): BP systolic 116–147; BP diastolic 75–89; PULSE 75–88; RESP 16–18; TEMP 95.7–97.2; O2SAT 95–99
[2016-12-03] MEDS: DILTIAZEM HCL 30 MG TAB PEG SCH ×2 (01:04→12:27)
[2016-12-03] MEDS: FREE WATER TUBE SCH ×5 (03:50→20:00)
[2016-12-03] MEDS: ACETIC ACID 0.25% SOLN 1000 ML IRR BTL IRRIGATION SCH ×3 (05:46→21:05)
[2016-12-03] MEDS: HEPARIN SODIUM - SQ 10,000 UNITS/ML VIAL SQ SCH ×3 (05:46→21:05)
[2016-12-03] MEDS: INSULIN ASPART SUPPLEMENTAL SCALE SQ SCH (06:30)
[2016-12-03] MEDS: NYSTATIN 100,000 U/GM PWD 15 GM BTL TOPICAL SCH ×2 (09:00→21:00)
[2016-12-03] MEDS: KETOCONAZOLE 2% CREAM 15 GM TOPICAL SCH ×2 (09:00→21:00)
[2016-12-03] MEDS: METOPROLOL TARTRATE 50 MG TAB PO SCH ×2 (09:30→21:03)
[2016-12-03] MEDS: levETIRAcetam 500 MG/5 ML UDC TUBE SCH ×2 (09:30→21:03)
[2016-12-03] MEDS: ASPIRIN 325 MG TAB TUBE SCH (09:30)
[2016-12-03] MEDS: POTASSIUM CHLORIDE 25 MEQ EFFERVESCENT TAB TUBE SCH (09:31)
[2016-12-03] MEDS: PANTOPRAZOLE SODIUM 40 MG VIAL IV PUSH SCH ×2 (09:31→21:05)
--- NOTE | 2016-12-03 11:34 | HHI.PR ---
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 Pt non-verbal, tracking people in room. Pt's mother and another family member at bedside, report no change since yesterday. Spoke with pt's nurse, no new issues raised by nursing staff. Pt to go to IR lab later today (approximately 1600) to replace GJ tube. Respiratory therapy present and reported "course" lung sounds. No other issues noted or reported by family or staff. Objective Vitals Vital Signs Date Time Temp Pulse Resp B/P Pulse Ox O2 Delivery O2 Flow Rate FiO2 12/03/16 08:00 96.4 88 16 125/80 96 12/03/16 04:17 97.2 78 16 121/75 96 12/03/16 04:09 97 T-piece 6.00 28 12/03/16 00:20 97.1 75 18 116/77 95 12/02/16 20:28 96.6 74 18 114/73 98 12/02/16 20:23 97 T-piece 28 12/02/16 20:23 97 T-piece 28 12/02/16 16:00 97.2 74 20 111/75 96 12/02/16 14:43 85 12/02/16 13:36 99 T-piece 5.00 28 12/02/16 13:36 99 T-piece 5.00 28 12/02/16 12:00 96.7 80 19 127/75 98 I/O 12/02/16 12/02/16 12/02/16 12/03/16 12/03/16 12/03/16 07:00 15:00 23:00 07:00 15:00 23:00 Output Total 800 ml 250 ml 450 ml Balance -800 ml -250 ml -450 ml Output Urine Total 800 ml 250 ml 450 ml # Bowel Movements 0 Result Diagram: 12/01/1615 12/01/1615 Objective Remarks GENERAL: Pt encountered laying a bed, awake, appeared to be tracking people in room. In no acute distress. SKIN: Warm and dry. tattoo noted on right forearm. HEAD: Normocephalic. EYES: No scleral icterus. No injection or drainage. NECK: Supple, trachea midline. No JVD or lymphadenopathy. CARDIOVASCULAR: Regular rate and rhythm without murmurs, gallops, or rubs. RESPIRATORY: Breath sounds equal bilaterally. No accessory muscle use. Trach tube in place. GASTROINTESTINAL: Abdomen soft, non-tender, nondistended. GJ tube noted, area around insertion was dry and seemingly without leakage. MUSCULOSKELETAL: No cyanosis, or edema. PSYCHIATRIC: Pt non-verbal, he appeared calm and not in distress. Procedures 01/02/16 PEG placement 01/02/16 tracheostomy 07/22/2016 Wide excision of sacral skin wound, biopsy of the cavity lining and debridement. 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 Tracks with his eyes. Continue Keppra for seizure prophylaxis. PT/OT signed off as patient is unable to participate. -Need placement. Difficult. Appreciate case management assistance. 12/02/16: Rehab Medicine (Dr. Pickens) saw pt on 11/29/16, rec's on chart. //Chronic respiratory failure -Secondary to CVA. Status post tracheostomy. Continue pulmonary toilet and bronchodilators as needed. Continue trach care, suctioning. Levsin as needed. -Pulmonary currently following . Appreciate assistance. //Atrial fibrillation -Continue rate control with Cardizem and metoprolol. Echocardiogram in November 2015 shows preserved ejection fraction. Coumadin discontinued secondary to bleeding. Rate controlled. Continue aspirin and prophylactic heparin dose. //History of non-Hodgkin's lymphoma - Status post brain biopsy on December 13 by neurosurgery. Pathology consistent with acute infarct without evidence of lymphoma. Oncology has signed all //Diabetes mellitus -Hemoglobin A1c is 7. Continue Levemir. Monitor Accu-Cheks and cover with sliding scale insulin. Overall blood sugar continues well controlled. //Decubitus ulcer stage IV -Continue wound care, twice-daily dressing changes. Wound care recommendations. Continue pressure relief measures including turning and positioning. Patient's family has declined a diverting colostomy. Previous Wound culture growing Klebsiella. on Augmentin. Status post wide excision of sacral skin and biopsy of the cavity lining with debridement on 07/22/16. Continue scheduled [place] every 8 hours. -Continue to monitor for pain. //Gastric ulcer, reflux esophagitis - EGD on 07/30/16 showed gastric ulcers. Appreciate GI recommendations. Continue PPI. H&H stable as of last recheck.. //UTI pseudomonas aeruginosa treated with abx -Resolved. - Repeat Ucx 08/28/16 negative. -Pt seen by ID (Dr. Alvarez) on 11/28/16. //Constipation: -Having regular bowel movements. -on lactulose. Monitor. -Notes of 11/21/16 indicated pt had diarrhea, he was checked for C. Diff and was negative. Imodium to be used. //FEN: Continue Nepro tube feeds with free water flushes. Appreciate dietary assistance. 12/02/16: Per Dr. Leal, IR to be consulted to replace GJ tube. -pt to have his GJ tube replaced later today (12/03/16). //DVT prophylaxis: SCDs/ subq heparin. Discussed with pt's family (at bedside), RN, Respiratory therapist. Discharge Planning Per CM on 11/29: pt has no payor source for rehab, declined by multiple facilities. Problem Qualifiers (1) CVA (cerebral vascular accident): (2) DM (diabetes mellitus): Qualified Code: E11.9 - Type 2 diabetes mellitus without complications Javier Harris Jr. December 03, 2016 11:34
[2016-12-03] MEDS: SODIUM CHLORIDE 0.65% NASAL SPRAY 45 ML BTL NASAL SCH ×2 (12:27→21:00)
[2016-12-03] MEDS: ARTIFICIAL TEARS OPTH SOLN 15 ML BTL EACH EYE SCH ×2 (12:47→21:00)
[2016-12-03] MEDS: BACITRACIN TOP OINT 15 GM TUBE TOP SCH ×2 (15:20→21:00)
[2016-12-03] MEDS: PARoxetine HCL SUSP 20 MG/10 ML UDC PEG SCH (18:22)
--- NOTE | 2016-12-03 18:37 | HHI.PR ---
Subjective Remarks opens eyes on o2 , o2 SAT 95 ON T PIECE NO DITRESS TRACH. [place] Feeding tube not working, hopely to change in AM Objective Vital Signs Date Time Temp Pulse Resp B/P Pulse Ox O2 Delivery O2 Flow Rate FiO2 12/03/16 18:05 99 T-piece 6.00 28 12/03/16 18:04 99 T-piece 6.00 28 12/03/16 16:00 96.6 84 18 147/89 99 12/03/16 12:00 95.7 79 18 131/84 98 12/03/16 09:44 99 T-piece 5.00 28 12/03/16 09:44 99 T-piece 5.00 28 12/03/16 08:00 96.4 88 16 125/80 96 12/03/16 04:17 97.2 78 16 121/75 96 12/03/16 04:09 97 T-piece 6.00 28 12/03/16 00:20 97.1 75 18 116/77 95 12/02/16 20:28 96.6 74 18 114/73 98 12/02/16 20:23 97 T-piece 28 12/02/16 20:23 97 T-piece 28 I/O 12/02/16 12/02/16 12/02/16 12/03/16 12/03/16 12/03/16 07:00 15:00 23:00 07:00 15:00 23:00 Output Total 800 ml 250 ml 450 ml 1525 ml Balance -800 ml -250 ml -450 ml -1525 ml Output Urine Total 800 ml 250 ml 450 ml 1525 ml # Bowel Movements 0 Result Diagram: 12/01/16 0715 12/01/16 0715 Procedures 01/02/16 PEG placement 01/02/16 tracheostomy 07/22/2016 Wide excision of sacral skin wound, biopsy of the cavity lining and debridement. PEG tube replacement 07/29/16 Objective Remarks GENERAL: SKIN: Warm and dry. HEAD: Atraumatic. Normocephalic. EYES: Pupils equal and round. No scleral icterus. No injection or drainage. ENT: No nasal bleeding or discharge. Mucous membranes pink and moist. NECK: Trachea midline. No JVD. TRACH. [place] CARDIOVASCULAR: Regular rate and rhythm. RESPIRATORY: No accessory muscle use. Clear to auscultation. Breath sounds equal bilaterally. GASTROINTESTINAL: Abdomen soft, non-tender, nondistended. Hepatic and splenic margins not palpable. MUSCULOSKELETAL: Extremities without clubbing, cyanosis, or edema. No obvious deformities. NEUROLOGICAL: Awake and alert. No obvious cranial nerve deficits. Motor grossly within normal limits. Five out of 5 muscle strength in the arms and legs. Normal speech. PSYCHIATRIC: Appropriate mood and affect; insight and judgment normal. Assessment and Plan Assessment and Plan impression respiratory failure CVA S/P TRACHEOSTOMY PLAN O2 NEEDED PULM. TOILET Brandon Taylor MD December 03, 2016 18:37
[2016-12-03] MEDS: SODIUM CHLOR 0.9% 1000 ML INJ 1,000 ML IV SCH (19:27)
[2016-12-04] VITALS (8 sets, daily range): BP systolic 101–138; BP diastolic 69–81; PULSE 76–94; RESP 18–20; TEMP 95.2–97.4; O2SAT 93–99
[2016-12-04] MEDS: DILTIAZEM HCL 30 MG TAB PEG SCH ×2 (00:26→13:00)
[2016-12-04] MEDS: FREE WATER TUBE SCH ×6 (04:00→20:00)
[2016-12-04] MEDS: HEPARIN SODIUM - SQ 10,000 UNITS/ML VIAL SQ SCH ×3 (06:00→20:17)
[2016-12-04] MEDS: ACETIC ACID 0.25% SOLN 1000 ML IRR BTL IRRIGATION SCH ×3 (06:00→20:14)
[2016-12-04] MEDS: INSULIN ASPART SUPPLEMENTAL SCALE SQ SCH (07:00)
--- NOTE | 2016-12-04 08:37 | HHI.PR ---
Subjective Remarks opens eyes on o2 , o2 SAT 95 ON T PIECE NO DITRESS TRACH. OK Feeding tube not working, hopely to change in AM Objective Vital Signs Date Time Temp Pulse Resp B/P Pulse Ox O2 Delivery O2 Flow Rate FiO2 12/04/16 08:18 97.1 87 18 127/80 97 12/04/16 05:32 96.5 79 18 138/69 98 12/04/16 00:53 96.5 76 18 133/81 98 12/03/16 20:18 96.3 85 18 117/79 95 12/03/16 18:05 99 T-piece 6.00 28 12/03/16 18:04 99 T-piece 6.00 28 12/03/16 16:00 96.6 84 18 147/89 99 12/03/16 12:00 95.7 79 18 131/84 98 12/03/16 09:44 99 T-piece 5.00 28 12/03/16 09:44 99 T-piece 5.00 28 12/03/16 09:40 99 T-Piece Humidified I/O 12/03/16 12/03/16 12/03/16 12/04/16 12/04/16 12/04/16 07:00 15:00 23:00 07:00 15:00 23:00 Intake Total 360 ml 980 ml 510 ml Output Total 450 ml 1525 ml 1500 ml Balance -450 ml -1165 ml 980 ml -990 ml Tube Feeding 390 ml Other 360 ml 980 ml 120 ml Output Urine Total 450 ml 1525 ml 1500 ml # Bowel Movements 0 Result Diagram: 12/01/16 0715 12/01/16 0715 Procedures 01/02/16 PEG placement 01/02/16 tracheostomy 07/22/2016 Wide excision of sacral skin wound, biopsy of the cavity lining and debridement. PEG tube replacement 07/29/16 Objective Remarks GENERAL: SKIN: Warm and dry. HEAD: Atraumatic. Normocephalic. EYES: Pupils equal and round. No scleral icterus. No injection or drainage. ENT: No nasal bleeding or discharge. Mucous membranes pink and moist. NECK: Trachea midline. No JVD. TRACH. [place] CARDIOVASCULAR: Regular rate and rhythm. RESPIRATORY: No accessory muscle use. Clear to auscultation. Breath sounds equal bilaterally. GASTROINTESTINAL: Abdomen soft, non-tender, nondistended. Hepatic and splenic margins not palpable. MUSCULOSKELETAL: Extremities without clubbing, cyanosis, or edema. No obvious deformities. NEUROLOGICAL: Awake and alert. No obvious cranial nerve deficits. Motor grossly within normal limits. Five out of 5 muscle strength in the arms and legs. Normal speech. PSYCHIATRIC: Appropriate mood and affect; insight and judgment normal. Assessment and Plan Assessment and Plan impression respiratory failure CVA S/P TRACHEOSTOMY PLAN O2 NEEDED PULM. TOILET Brandon Taylor MD December 04, 2016 08:37
[2016-12-04] MEDS: SODIUM CHLORIDE 0.65% NASAL SPRAY 45 ML BTL NASAL SCH ×2 (09:00→20:15)
[2016-12-04] MEDS: KETOCONAZOLE 2% CREAM 15 GM TOPICAL SCH ×2 (09:00→20:14)
[2016-12-04] MEDS: ASPIRIN 325 MG TAB TUBE SCH (09:00)
[2016-12-04] MEDS: METOPROLOL TARTRATE 50 MG TAB PO SCH ×2 (09:28→20:15)
[2016-12-04] MEDS: POTASSIUM CHLORIDE 25 MEQ EFFERVESCENT TAB TUBE SCH (09:28)
[2016-12-04] MEDS: levETIRAcetam 500 MG/5 ML UDC TUBE SCH ×2 (09:28→20:14)
[2016-12-04] MEDS: NYSTATIN 100,000 U/GM PWD 15 GM BTL TOPICAL SCH ×2 (09:32→20:17)
[2016-12-04] MEDS: BACITRACIN TOP OINT 15 GM TUBE TOP SCH ×2 (09:32→20:17)
[2016-12-04] MEDS: ARTIFICIAL TEARS OPTH SOLN 15 ML BTL EACH EYE SCH ×2 (09:33→20:16)
[2016-12-04] MEDS: RESP: LEVALBUTEROL HYDROCHLORIDE 0.63 MG/3 ML NEB (PRN) NEB (09:58)
[2016-12-04] MEDS: PANTOPRAZOLE SODIUM 40 MG VIAL IV PUSH SCH ×2 (11:05→20:17)
--- NOTE | 2016-12-04 12:21 | HHI.PR ---
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 Pt was sleeping at the time of visit and did not arouse. Family at bedside-mother and "ex-". Questions asked by them regarding when pt would go for GJ tube replacement as procedure was delayed from yesterday. Nursing, who was present for part of the visit, stated pt was to be taken to IR theater late this afternoon. Family asked about low oxygen saturation, which was noted to be 89 per bedside monitor. No other issues noted or reported. Objective Vitals Vital Signs Date Time Temp Pulse Resp B/P Pulse Ox O2 Delivery O2 Flow Rate FiO2 12/04/16 08:18 97.1 87 18 127/80 97 12/04/16 05:32 96.5 79 18 138/69 98 12/04/16 00:53 96.5 76 18 133/81 98 12/03/16 20:18 96.3 85 18 117/79 95 12/03/16 18:05 99 T-piece 6.00 28 12/03/16 18:04 99 T-piece 6.00 28 12/03/16 16:00 96.6 84 18 147/89 99 12/03/16 12:00 95.7 79 18 131/84 98 I/O 12/03/16 12/03/16 12/03/16 12/04/16 12/04/16 12/04/16 07:00 15:00 23:00 07:00 15:00 23:00 Intake Total 360 ml 980 ml 510 ml Output Total 450 ml 1525 ml 1500 ml Balance -450 ml -1165 ml 980 ml -990 ml Tube Feeding 390 ml Other 360 ml 980 ml 120 ml Output Urine Total 450 ml 1525 ml 1500 ml # Bowel Movements 0 Result Diagram: 12/01/16 0715 12/01/1615 Objective Remarks GENERAL: Pt encountered laying a bed,calmly sleeping. In no acute distress. SKIN: Warm and dry. tattoo noted on right forearm. HEAD: Normocephalic. EYES: closed without drainage. NECK: Supple, trachea midline. T-tube in place. CARDIOVASCULAR: Regular rate and rhythm without murmurs, gallops, or rubs. RESPIRATORY: Breath sounds equal bilaterally. No accessory muscle use. Trach tube in place. Bedside monitor indicated oxygen saturation was 89% GASTROINTESTINAL: Abdomen soft, non-tender, nondistended. GJ tube noted, area around insertion was dry and seemingly without leakage. MUSCULOSKELETAL: No cyanosis, or edema. SCD's noted to be on both legs. PSYCHIATRIC: Pt non-verbal, he appeared calm and not in distress. Procedures 01/02/16 PEG placement 01/02/16 tracheostomy 07/22/2016 Wide excision of sacral skin wound, biopsy of the cavity lining and debridement. PEG tube replacement 07/29/16 VAC changes- M-W-F 4/5- GJ tube replacement Medications and IVs Current Medications Medications (Trade) Dose Ordered Sig/Junior Route Start Time Stop Time Status Last Admin (NS Flush) 2 ml UNSCH PRN IVF 12/21/15 06:00 09/28/16 21:18 (Keppra Liq) 500 mg Q12HR TUBE 12/27/15 21:00 12/04/16 09:28 (Tylenol 650 Mg/ 20 ml Liq) 650 mg Q6H PRN TUBE 12/30/15 15:15 11/14/16 21:18 (Mycostatin Powder) 1 applic Q12HR TOPICAL 01/08/16 21:00 12/04/16 09:32 (Pill Splitter) 1 ea UNSCH PRN OTHER 01/14/16 08:30 (Acetic Acid 0.25% Irr Btl) 10 ml Q8HR IRRIGATION 02/05/16 16:00 12/04/16 06:00 (Ativan Inj) 0.5 mg Q4H PRN IV PUSH 03/07/16 23:00 (Paxil Liq) 20 mg DAILY@1900 PEG 03/12/16 19:00 12/03/16 18:22 (Levemir Inj) 35 units HS SQ 03/24/16 21:00 Hold 11/15/16 22:06 (Levsin) 0.25 mg Q4H PRN G-TUBE 04/11/16 10:30 08/31/16 05:02 (Zofran Inj) 4 mg Q6HR PRN IV PUSH 04/14/16 19:45 08/10/16 10:16 (Free Water) 200 ml Q4HR TUBE 04/16/16 12:00 12/04/16 00:00 (D50w (Vial) Inj) 25 ml UNSCH PRN IV 04/20/16 12:00 (Glucagon Inj) 1 mg UNSCH PRN IM/SQ 04/20/16 12:00 (K-Lyte Cl Eff) 25 meq DAILY TUBE 05/28/16 09:00 12/04/16 09:28 (Aspirin) 325 mg DAILY TUBE 05/27/16 11:40 12/03/16 09:30 (Heparin Inj) 5,000 units Q8HR SQ 06/11/16 14:00 12/03/16 21:05 (Baciguent Oint) 1 applic BID TOP 07/20/16 10:00 12/04/16 09:32 (Protonix Inj) 40 mg Q12H IV PUSH 07/30/16 10:15 12/04/16 11:05 ([place] Angel Lamoni) 1 spray BID NASAL 08/01/16 21:00 12/04/16 09:00 (Colace Liq) 100 mg BID PO 08/30/16 21:00 Hold 11/20/16 08:03 (Lactulose Liq) 30 ml DAILY PO 09/02/16 15:30 Hold 11/20/16 08:03 (Tears Naturale Opth Soln) 1 drop BID EACH EYE 09/05/16 21:00 12/04/16 09:33 (Morphine Inj) 1 mg Q24H PRN IV PUSH 09/17/16 14:30 10/22/16 02:00 (Nizoral 2% Cream) 1 applic Q12HR TOPICAL 09/24/16 21:00 12/03/16 21:00 (Senna Liq) 8.8 mg DAILY@1600 PO 09/25/16 17:00 Hold 11/12/16 16:45 (Fleets Enema (Adult)) 133 ml UNSCH PRN MI 09/25/16 16:00 (Dulcolax Supp) 10 mg DAILY PRN RECTAL 09/26/16 15:30 10/20/16 12:53 (Milk Of Magnesia Liq) 30 ml DAILY PRN PO 10/13/16 14:30 11/30/16 22:04 (Morse 5-325 Mg) 1 tab Q6H PRN PO 10/13/16 18:45 11/23/16 21:43 (Flexeril) 5 mg HS PRN PO 10/14/16 14:15 10/22/16 21:17 (Cardizem) 30 mg Q12H PEG 11/20/16 01:00 12/04/16 00:26 (Lopressor) 25 mg BID PO 11/19/16 21:00 12/04/16 09:28 Loperamide HCl 2 mg 2 mg Q6H PRN PO 11/20/16 15:30 11/21/16 02:04 (NS 1000 ml Inj) 1,000 ml @ 30 mls/hr Q24H IV 11/28/16 19:45 12/03/16 19:27 Date of Insertion: Oct 12, 2016 A/P Problem List: (1) CVA (cerebral vascular accident) ICD Code: I63.9 Status: Acute (2) A-fib ICD Code: I48.91 Status: Chronic (3) DM (diabetes mellitus) ICD Code: E11.9 Status: Chronic Assessment and Plan 60 year-old male with: //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 Tracks with his eyes. Continue Keppra for seizure prophylaxis. PT/OT signed off as patient is unable to participate. -Need placement. Difficult. Appreciate case management assistance. 12/02/16: Rehab Medicine (Dr. iPckens) saw pt on 11/29/16, rec's on chart. //Chronic respiratory failure -Secondary to CVA. Status post tracheostomy. Continue pulmonary toilet and bronchodilators as needed. Continue trach care, suctioning. Levsin as needed. -Pulmonary currently following . Appreciate assistance. -Pt noted to have oxygenation (per bedside monitor) improvement noted after pt was repositioned and he received a breathing treatment. Oxygen saturation was noted to be 95% on follow-up visit. //Atrial fibrillation -Continue rate control with Cardizem and metoprolol. Echocardiogram in November 2015 shows preserved ejection fraction. Coumadin discontinued secondary to bleeding. Rate controlled. Continue aspirin and prophylactic heparin dose. //History of non-Hodgkin's lymphoma - Status post brain biopsy on December 13 by neurosurgery. Pathology consistent with acute infarct without evidence of lymphoma. Oncology has signed all //Diabetes mellitus -Hemoglobin A1c is 7. Continue Levemir. Monitor Accu-Cheks and cover with sliding scale insulin. Overall blood sugar continues well controlled. //Decubitus ulcer stage IV -Continue wound care, twice-daily dressing changes. Wound care recommendations. Continue pressure relief measures including turning and positioning. Patient's family has declined a diverting colostomy. Previous Wound culture growing Klebsiella. on Augmentin. Status post wide excision of sacral skin and biopsy of the cavity lining with debridement on 07/22/16. Continue scheduled Morse every 8 hours. -Continue to monitor for pain. //Gastric ulcer, reflux esophagitis - EGD on 07/30/16 showed gastric ulcers. Appreciate GI recommendations. Continue PPI. H&H stable as of last recheck.. //UTI pseudomonas aeruginosa treated with abx -Resolved. - Repeat Ucx 08/28/16 negative. -Pt seen by ID (Dr. Alvarez) on 11/28/16. //Constipation: -Having regular bowel movements. -on lactulose. Monitor. -Notes of 11/21/16 indicated pt had diarrhea, he was checked for C. Diff and was negative. Imodium to be used. //FEN: Continue Nepro tube feeds with free water flushes. Appreciate dietary assistance. 12/02/16: Per Dr. Leal, IR to be consulted to replace GJ tube. -pt to have his GJ tube replaced later today (12/03/16). Replacement procedure did not occur on 12/03/16 and is being delayed until later today (12/04/16). //DVT prophylaxis: SCDs/ subq heparin. Discussed with pt's family (at bedside), RN.. Discharge Planning Per CM on 11/29: pt has no payor source for rehab, declined by multiple facilities. Problem Qualifiers (1) CVA (cerebral vascular accident): (2) DM (diabetes mellitus): Qualified Code: E11.9 - Type 2 diabetes mellitus without complications Javier Harris Jr. December 04, 2016 11:52
--- NOTE | 2016-12-04 18:03 | PD.RAD ---
Post Procedure Progress Note Pre Procedure Diagnosis: (1) Feeding tube dysfunction Post Procedure Diagnosis: (1) Feeding tube dysfunction Procedure Date: December 04, 2016 Supervising Radiologist: Moises Ramírez Plan of Activity Patient to Unit: Nursing Unit Additional Comments: G/J tube evaluated. The tube is in the correct position and functions normally. No obstruction found. PT sent back to the floor. Floor notified. See PACS Report for procedural detail/treatment Moises Ramírez MD December 04, 2016 18:03
[2016-12-04] MEDS: PARoxetine HCL SUSP 20 MG/10 ML UDC PEG SCH (19:05)
[2016-12-04] MEDS: SODIUM CHLOR 0.9% 1000 ML INJ 1,000 ML IV SCH (19:45)
--- NOTE | 2016-12-04 20:27 | HHI.PR ---
Subjective Subjective Comments Family at bedside. Patient briefly opens eyes to voice and follows commands to track. Allergies: Coded Allergies: *MDRO Multi-Drug Resistant Organism (Verified Adverse Reaction, Unknown, ) MRSA (sputum) - 03/08/16, 04/03/2016 MDR-Pseudomonas Aeruginosa (urine)-08/25/16 Review of Systems All other ROS: Unable to obtain Exam I&O / VS 12/03/16 12/03/16 12/04/16 15:00 23:00 07:00 Intake Total 360 ml 980 ml 510 ml Output Total 1525 ml 1500 ml Balance -1165 ml 980 ml -990 ml Tube Feeding 390 ml Other 360 ml 980 ml 120 ml Output Urine Total 1525 ml 1500 ml Vital Signs Date Time Temp Pulse Resp B/P Pulse Ox O2 Delivery O2 Flow Rate FiO2 12/04/16 20:00 95.2 94 20 101/72 93 12/04/16 16:00 95.2 83 18 109/72 98 12/04/16 12:17 97.4 86 18 102/69 99 12/04/16 08:18 97.1 87 18 127/80 97 12/04/16 05:54 82 12/04/16 05:32 96.5 79 18 138/69 98 12/04/16 00:53 96.5 76 18 133/81 98 General: No acute distress Skin: Other (Sacral wound with dressing in place with serosanguinous drainage) Musculoskeletal: ROM (Within functional limits; tone is decreased in the upper and lower extremities), Other (SCDs in place) Psychiatric: Cooperative Orientation: oriented to Self, unable to asses Place, unable to asses Time, unable to asses Situation Neurologic: Speech (Nonverbal), Other (No voluntary or spontaneous movement noted) Assessment and Plan Diagnosis: (1) CVA (cerebral vascular accident) Laterality of affected vessel: bilateral Assessment 1. Bilateral occipital/brainstem CVA with quadriplegia, dysphagia S/P PEG and inability to communicate 2. Sacral wound grade 4 3. Atrial fibrillation 4. HTN 5. Non-Hodgkin lymphoma stage 3 S/P chemotherapy 6. DM Plan 1. PT and OT providing ROM and positioning. Patient is on specialty bed and wound care is following. 2. ST re-consulted for and is addressing communication with tracking or eye blink 3. Turn and reposition q 2 hours. 4. Will need skilled placement and case management is referring but difficulty finding accepting facility due to level of care. Discussed with family at bedside. 5. Feeding tube is to be replaced today and interventional radiology 6. Will follow while hospitalized and at discharge as appropriate. . Marla Pickens MD December 04, 2016 20:27
[2016-12-05] VITALS (10 sets, daily range): BP systolic 109–133; BP diastolic 66–86; PULSE 79–104; RESP 18–22; TEMP 96–97.9; O2SAT 87–98
[2016-12-05] MEDS: DILTIAZEM HCL 30 MG TAB PEG SCH ×2 (01:30→13:00)
[2016-12-05] MEDS: FREE WATER TUBE SCH ×7 (04:00→23:45)
[2016-12-05] MEDS: HEPARIN SODIUM - SQ 10,000 UNITS/ML VIAL SQ SCH ×3 (06:00→22:35)
[2016-12-05] MEDS: ACETIC ACID 0.25% SOLN 1000 ML IRR BTL IRRIGATION SCH ×3 (06:00→22:40)
[2016-12-05] MEDS: INSULIN ASPART SUPPLEMENTAL SCALE SQ SCH (06:31)
[2016-12-05] MEDS: levETIRAcetam 500 MG/5 ML UDC TUBE SCH ×2 (07:40→22:36)
[2016-12-05] MEDS: POTASSIUM CHLORIDE 25 MEQ EFFERVESCENT TAB TUBE SCH (07:40)
[2016-12-05] MEDS: METOPROLOL TARTRATE 50 MG TAB PO SCH ×2 (07:41→08:06)
[2016-12-05] MEDS: ASPIRIN 325 MG TAB TUBE SCH (07:41)
[2016-12-05] MEDS: ARTIFICIAL TEARS OPTH SOLN 15 ML BTL EACH EYE SCH ×2 (07:43→22:36)
[2016-12-05] MEDS: SODIUM CHLORIDE 0.65% NASAL SPRAY 45 ML BTL NASAL SCH ×2 (07:44→22:38)
[2016-12-05] MEDS: KETOCONAZOLE 2% CREAM 15 GM TOPICAL SCH ×2 (07:51→21:00)
--- NOTE | 2016-12-05 08:02 | HHI.PR ---
Subjective Remarks opens eyes on o2 , o2 SAT 95 ON T PIECE NO DITRESS TRACH. [place] Feeding tube changed Objective Vital Signs Date Time Temp Pulse Resp B/P Pulse Ox O2 Delivery O2 Flow Rate FiO2 12/05/16 04:00 97.9 103 20 133/76 95 12/05/16 03:50 96 T-Piece 28 12/05/16 00:00 96.8 90 20 118/83 98 12/04/16 22:10 99 T-piece 6.00 28 12/04/16 22:10 99 T-piece 6.00 28 12/04/16 20:00 95.2 94 20 101/72 93 12/04/16 16:00 95.2 83 18 109/72 98 12/04/16 12:17 97.4 86 18 102/69 99 12/04/16 08:18 97.1 87 18 127/80 97 I/O 12/04/16 12/04/16 12/04/16 12/05/16 12/05/16 12/05/16 07:00 15:00 23:00 07:00 15:00 23:00 Intake Total 510 ml 360 ml Output Total 1500 ml 550 ml 500 ml 400 ml Balance -990 ml -550 ml -500 ml -40 ml Tube Feeding 390 ml 240 ml Other 120 ml 120 ml Output Urine Total 1500 ml 550 ml 500 ml 400 ml # Bowel Movements 0 Result Diagram: 12/01/16 0715 12/01/16 0715 Procedures 01/02/16 PEG placement 01/02/16 tracheostomy 07/22/2016 Wide excision of sacral skin wound, biopsy of the cavity lining and debridement. PEG tube replacement 07/29/16 Objective Remarks GENERAL: SKIN: Warm and dry. HEAD: Atraumatic. Normocephalic. EYES: Pupils equal and round. No scleral icterus. No injection or drainage. ENT: No nasal bleeding or discharge. Mucous membranes pink and moist. NECK: Trachea midline. No JVD. TRACH. [place] CARDIOVASCULAR: Regular rate and rhythm. RESPIRATORY: No accessory muscle use. Clear to auscultation. Breath sounds equal bilaterally. GASTROINTESTINAL: Abdomen soft, non-tender, nondistended. Hepatic and splenic margins not palpable. MUSCULOSKELETAL: Extremities without clubbing, cyanosis, or edema. No obvious deformities. NEUROLOGICAL: Awake and alert. No obvious cranial nerve deficits. Motor grossly within normal limits. Five out of 5 muscle strength in the arms and legs. Normal speech. PSYCHIATRIC: Appropriate mood and affect; insight and judgment normal. Assessment and Plan Assessment and Plan impression respiratory failure CVA S/P TRACHEOSTOMY PLAN O2 NEEDED PULM. TOILET Brandon Taylor MD December 05, 2016 08:02
[2016-12-05] MEDS: NYSTATIN 100,000 U/GM PWD 15 GM BTL TOPICAL SCH ×2 (08:30→22:38)
[2016-12-05] MEDS: BACITRACIN TOP OINT 15 GM TUBE TOP SCH ×2 (08:30→22:38)
[2016-12-05] MEDS: PANTOPRAZOLE SODIUM 40 MG VIAL IV PUSH SCH ×2 (10:02→22:35)
--- NOTE | 2016-12-05 13:42 | HHI.PR ---
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 Pt non-verbal and has T-piece in place. Pt's mother at bedside, reported pt did have GJ tube replaced. Spoke with nurse who reported no new issues or concerns. Objective Vitals Vital Signs Date Time Temp Pulse Resp B/P Pulse Ox O2 Delivery O2 Flow Rate FiO2 12/05/16 11:50 96.0 83 21 109/66 95 12/05/16 09:53 99 12/05/16 09:30 95 T-piece 28 12/05/16 09:30 95 T-piece 28 12/05/16 07:55 96.4 104 20 126/77 87 12/05/16 04:00 97.9 103 20 133/76 95 12/05/16 03:50 96 T-Piece 28 12/05/16 00:00 96.8 90 20 118/83 98 12/04/16 22:10 99 T-piece 6.00 28 12/04/16 22:10 99 T-piece 6.00 28 12/04/16 20:00 95.2 94 20 101/72 93 12/04/16 16:00 95.2 83 18 109/72 98 I/O 12/04/16 12/04/16 12/04/16 12/05/16 12/05/16 12/05/16 07:00 15:00 23:00 07:00 15:00 23:00 Intake Total 510 ml 360 ml 200 ml Output Total 1500 ml 550 ml 500 ml 400 ml Balance -990 ml -550 ml -500 ml -40 ml 200 ml Tube Feeding 390 ml 240 ml TPN/PPN 200 ml Other 120 ml 120 ml Output Urine Total 1500 ml 550 ml 500 ml 400 ml # Bowel Movements 0 Result Diagram: 12/01/16 0715 12/01/16 0715 Imaging Last Impressions Chest X-Ray 11/18/16 1014 Signed Impressions: Service Date/Time: Friday, November 18, 2016 10:14 - CONCLUSION: Lungs are clear. Mikie Vargas MD Tube Change 11/18/16 0000 Signed Impressions: Service Date/Time: Friday, November 18, 2016 17:38 - CONCLUSION: Uncomplicated gastrojejunostomy tube exchange as above. Jonel Jones Jr., MD Abdomen X-Ray 08/31/16 0000 Signed Impressions: Service Date/Time: Wednesday, August 31, 2016 16:36 - CONCLUSION: 1. No acute findings. Mild constipation. Durga Dotson MD Abdomen/Pelvis CT 04/12/16 0000 Signed Impressions: Service Date/Time: Tuesday, April 12, 2016 20:52 - CONCLUSION: 1. 6.4 cm necrotic mass or abscess in the soft tissues posteriorly just below the sacrum associated with some bony destructive change of the lower most sacrum and coccyx with inflammatory changes extending into the ischiorectal fossa and into the presacral retroperitoneum predominantly on the left side. There is associated fairly marked mural thickening of the anal verge and rectum. 2. There is gastrostomy and Arevalo catheter present. Stable abdominal aortic aneurysm. Durga Dotson MD Head Magnetic Resonance Angiography 03/05/16 0000 Signed Impressions: Service Date/Time: Saturday, March 05, 2016 09:26 - CONCLUSION: Persistent high-grade subtotal occlusive stenotic lesions in the distal right vertebral artery and proximal basilar artery with significant improvement in flow and recanalization following initial presentation of thrombosis. Stable interstitial circulation without significant stenosis. 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 There is decreasing restricted diffusion and increasing loss of volume characteristic of a subacute to chronic infarct. No evidence of acute infarct, acute hemorrhage mass or edema. Ernesto Kulkarni MD Head CT 01/16/16 0000 Signed Impressions: Service Date/Time: Saturday, January 16, 2016 10:51 - CONCLUSION: No extensive low density in the brainstem colin more prominent in the right the left extending into the right middle cerebellar peduncle consistent with brainstem infarct nonhemorrhagic acute Wellington West MD Neck Magnetic Resonance Angiography 12/22/15 1445 Signed Impressions: Service Date/Time: Tuesday, December 22, 2015 09:22 - CONCLUSION: Variant origin of the left vertebral artery from the aortic arch. No evidence of carotid stenosis. Glen Zamora MD Head/Brain Mag Res Venography 12/22/15 0000 Signed Impressions: Service Date/Time: Tuesday, December 22, 2015 09:22 - CONCLUSION: Normal MRV. Jonel Jones Jr., MD Objective Remarks GENERAL: Pt encountered laying a bed, non-verbal, tracking people in room, as well as dozing. Not in acute distress. SKIN: Warm and dry. tattoo noted on right forearm. HEAD: Normocephalic. EYES: Non-icteric without injection or drainage. NECK: Supple, trachea midline. T-tube in place. CARDIOVASCULAR: Regular rate and rhythm without murmurs, gallops, or rubs. RESPIRATORY: Breath sounds equal bilaterally. No accessory muscle use. Trach tube in place. Bedside monitor indicated oxygen saturation was 98% GASTROINTESTINAL: Abdomen soft, non-tender, nondistended. GJ tube noted, area around insertion was dry and seemingly without leakage. Gauze noted to be above insertion site with writing "12/04/16" noted. MUSCULOSKELETAL: No cyanosis, or edema. SCD's noted to be on both legs. PSYCHIATRIC: Pt non-verbal, he appeared calm and not in distress. Procedures 01/02/16 PEG placement 01/02/16 tracheostomy 07/22/2016 Wide excision of sacral skin wound, biopsy of the cavity lining and debridement. PEG tube replacement 07/29/16 VAC changes- M-W-F 10/23- GJ tube replacement Medications and IVs Current Medications Medications (Trade) Dose Ordered Sig/Junior Route Start Time Stop Time Status Last Admin (NS Flush) 2 ml UNSCH PRN IVF 12/21/15 06:00 09/28/16 21:18 (Keppra Liq) 500 mg Q12HR TUBE 12/27/15 21:00 12/05/16 07:40 (Tylenol 650 Mg/ 20 ml Liq) 650 mg Q6H PRN TUBE 12/30/15 15:15 11/14/16 21:18 (Mycostatin Powder) 1 applic Q12HR TOPICAL 01/08/16 21:00 12/04/16 20:17 (Pill Splitter) 1 ea UNSCH PRN OTHER 01/14/16 08:30 (Acetic Acid 0.25% Irr Btl) 10 ml Q8HR IRRIGATION 02/05/16 16:00 12/05/16 06:00 (Ativan Inj) 0.5 mg Q4H PRN IV PUSH 03/07/16 23:00 (Paxil Liq) 20 mg DAILY@1900 PEG 03/12/16 19:00 12/04/16 19:05 (Levemir Inj) 35 units HS SQ 03/24/16 21:00 Hold 11/15/16 22:06 (Levsin) 0.25 mg Q4H PRN G-TUBE 04/11/16 10:30 08/31/16 05:02 (Zofran Inj) 4 mg Q6HR PRN IV PUSH 04/14/16 19:45 08/10/16 10:16 (Free Water) 200 ml Q4HR TUBE 04/16/16 12:00 12/05/16 12:05 (D50w (Vial) Inj) 25 ml UNSCH PRN IV 04/20/16 12:00 (Glucagon Inj) 1 mg UNSCH PRN IM/SQ 04/20/16 12:00 (K-Lyte Cl Eff) 25 meq DAILY TUBE 05/28/16 09:00 12/05/16 07:40 (Aspirin) 325 mg DAILY TUBE 05/27/16 11:40 12/05/16 07:41 (Heparin Inj) 5,000 units Q8HR SQ 06/11/16 14:00 12/05/16 12:05 (Baciguent Oint) 1 applic BID TOP 07/20/16 10:00 12/04/16 20:17 (Protonix Inj) 40 mg Q12H IV PUSH 07/30/16 10:15 12/05/16 10:02 ([place]) 1 spray BID NASAL 08/01/16 21:00 12/05/16 07:44 (Colace Liq) 100 mg BID PO 08/30/16 21:00 Hold 11/20/16 08:03 (Lactulose Liq) 30 ml DAILY PO 09/02/16 15:30 Hold 11/20/16 08:03 (Tears Naturale Opth Soln) 1 drop BID EACH EYE 09/05/16 21:00 12/05/16 07:43 (Morphine Inj) 1 mg Q24H PRN IV PUSH 09/17/16 14:30 10/22/16 02:00 (Nizoral 2% Cream) 1 applic Q12HR TOPICAL 09/24/16 21:00 12/04/16 20:14 (Senna Liq) 8.8 mg DAILY@1600 PO 09/25/16 17:00 Hold 11/12/16 16:45 (Fleets Enema (Adult)) 133 ml UNSCH PRN ND 09/25/16 16:00 (Dulcolax Supp) 10 mg DAILY PRN RECTAL 09/26/16 15:30 10/20/16 12:53 (Milk Of Magnesia Liq) 30 ml DAILY PRN PO 10/13/16 14:30 11/30/16 22:04 ([place] 5-325 Mg) 1 tab Q6H PRN PO 10/13/16 18:45 11/23/16 21:43 (Flexeril) 5 mg HS PRN PO 10/14/16 14:15 10/22/16 21:17 (Cardizem) 30 mg Q12H PEG 11/20/16 01:00 12/05/16 01:30 (Lopressor) 25 mg BID PO 11/19/16 21:00 12/05/16 08:06 Loperamide HCl 2 mg 2 mg Q6H PRN PO 11/20/16 15:30 11/21/16 02:04 (NS 1000 ml Inj) 1,000 ml @ 30 mls/hr Q24H IV 11/28/16 19:45 12/04/16 19:45 Urinary Catheter: Yes Assessment to: Continue Arevalo insert reason: Prolonged Immobilization Date of Insertion: Oct 12, 2016 Vascular Central Line Catheter: No A/P Problem List: (1) CVA (cerebral vascular accident) ICD Code: I63.9 Status: Acute (2) A-fib ICD Code: I48.91 Status: Chronic (3) DM (diabetes mellitus) ICD Code: E11.9 Status: Chronic Assessment and Plan 60 year-old male with: //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 Tracks with his eyes. Continue Keppra for seizure prophylaxis. PT/OT signed off as patient is unable to participate. -Need placement. Difficult. Appreciate case management assistance. 12/02/16: Rehab Medicine (Dr. Pickens) saw pt on 12/04/16, rec's on chart. //Chronic respiratory failure -Secondary to CVA. Status post tracheostomy. Continue pulmonary toilet and bronchodilators as needed. Continue trach care, suctioning. Levsin as needed. -Pulmonary currently following . Appreciate assistance. -Pt noted to have oxygenation (per bedside monitor) improvement noted after pt was repositioned and he received a breathing treatment. Oxygen saturation was noted to be 95% on follow-up visit. //Atrial fibrillation -Continue rate control with Cardizem and metoprolol. Echocardiogram in November 2015 shows preserved ejection fraction. Coumadin discontinued secondary to bleeding. Rate controlled. Continue aspirin and prophylactic heparin dose. //History of non-Hodgkin's lymphoma - Status post brain biopsy on December 13 by neurosurgery. Pathology consistent with acute infarct without evidence of lymphoma. Oncology has signed all //Diabetes mellitus -Hemoglobin A1c is 7. Continue Levemir. Monitor Accu-Cheks and cover with sliding scale insulin. Overall blood sugar continues well controlled. //Decubitus ulcer stage IV -Continue wound care, twice-daily dressing changes. Wound care recommendations. Continue pressure relief measures including turning and positioning. Patient's family has declined a diverting colostomy. Previous Wound culture growing Klebsiella. on Augmentin. Status post wide excision of sacral skin and biopsy of the cavity lining with debridement on 07/22/16. Continue scheduled [place] every 8 hours. -Continue to monitor for pain. //Gastric ulcer, reflux esophagitis - EGD on 07/30/16 showed gastric ulcers. Appreciate GI recommendations. Continue PPI. H&H stable as of last recheck.. //UTI pseudomonas aeruginosa treated with abx -Resolved. - Repeat Ucx 08/28/16 negative. -Pt seen by ID (Dr. Alvarez) on 11/28/16. //Constipation: -Having regular bowel movements. -on lactulose. Monitor. -Notes of 11/21/16 indicated pt had diarrhea, he was checked for C. Diff and was negative. Imodium to be used. //FEN: Continue Nepro tube feeds with free water flushes. Appreciate dietary assistance. 12/02/16: Per SUSAN Huizar to be consulted to replace GJ tube. -pt to have his GJ tube replaced later today (12/03/16). Replacement procedure did not occur on 12/03/16 and is being delayed until later today (12/04/16). -GJ tube replaced on 12/04/16. Per IR physician's note, no obstruction found and tube was in the correct position and operating normally. //DVT prophylaxis: SCDs/ subq heparin. Discussed with pt's mother (at bedside), RN. Discharge Planning Per CM on 11/29: pt has no payor source for rehab, declined by multiple facilities. Problem Qualifiers (1) CVA (cerebral vascular accident): (2) DM (diabetes mellitus): Qualified Code: E11.9 - Type 2 diabetes mellitus without complications Javier Harris Jr. December 05, 2016 13:42
[2016-12-05] MEDS: PARoxetine HCL SUSP 20 MG/10 ML UDC PEG SCH (17:56)
[2016-12-05] MEDS: SODIUM CHLOR 0.9% 1000 ML INJ 1,000 ML IV SCH (19:45)
[2016-12-05] MEDS: ACETAMINOPHEN/HYDROcodone 325 MG/5 MG TAB PO PRN (22:35)
--- NOTE | 2016-12-05 23:28 | RADRPT ---
EXAM DATE/TIME: 12/04/2016 17:58 [facility] COMPARISON: CHANGE OF GJ-TUBE CATHETER, November 18, 2016, 17:38. INDICATIONS : Patient with possible clogged GJ tube, needs evaluated. MEDICAL HISTORY : History of CVA, HTN, AFIB, non Hodgkin's lymphoma, DM, gastric ulcers, esoophagitis, sacral ulcers. SURGICAL HISTORY : History of sacral biopsy, right occipital [place] hole brain biopsy, left arm surgery, G-J tube, tracheo stomy ENCOUNTER: Subsequent ACUITY: 2 days PAIN SCORE: 0/10 FLUORO TIME: 0.2 minutes IMAGE SERIES: 2 CONTRAST: 10 cc Omnipaque (iohexol) 350 PROCEDURE : 1. Fluoroscopically guided tube injection. 2. Conscious sedation with continuous EKG and oximetry monitoring. The risks, benefits and alternatives to the procedure were explained to the patient's verbal con sent was obtained. The site was prepped in sterile fashion. Full sterile technique was used, includ ing cap, mask, sterile gloves and gown and a large sterile sheet. Hand hygiene and 2% chlorhexidine and/or betadine/alcohol prep was utilized per protocol for cutaneous antisepsis. With fluoroscopic guidance the previously placed tube was injected demonstrating the tube to be in ex cellent position. The tube functions normally. The patient tolerated the procedure well and there were no complications. [facility] condition. CONCLUSION: Uncomplicated tube injection as above. the tube is in good position and functions normally. Moises Ramírez MD on December 05, 2016 at 23:25 Board Certified Radiologist. This report was verified electronically.
[2016-12-06] VITALS (10 sets, daily range): BP systolic 102–125; BP diastolic 70–84; PULSE 77–100; RESP 18–22; TEMP 95.2–97.2; O2SAT 96–100
[2016-12-06] MEDS: DILTIAZEM HCL 30 MG TAB PEG SCH ×2 (01:58→13:00)
[2016-12-06] MEDS: FREE WATER TUBE SCH ×6 (03:56→23:57)
[2016-12-06] MEDS: ACETIC ACID 0.25% SOLN 1000 ML IRR BTL IRRIGATION SCH ×3 (06:00→21:01)
[2016-12-06] MEDS: INSULIN ASPART SUPPLEMENTAL SCALE SQ SCH (06:20)
[2016-12-06] MEDS: HEPARIN SODIUM - SQ 10,000 UNITS/ML VIAL SQ SCH ×3 (06:26→20:59)
[2016-12-06] MEDS: POTASSIUM CHLORIDE 25 MEQ EFFERVESCENT TAB TUBE SCH (07:49)
[2016-12-06] MEDS: levETIRAcetam 500 MG/5 ML UDC TUBE SCH ×2 (07:50→20:59)
[2016-12-06] MEDS: ASPIRIN 325 MG TAB TUBE SCH (07:50)
[2016-12-06] MEDS: METOPROLOL TARTRATE 50 MG TAB PO SCH ×2 (07:52→20:58)
[2016-12-06] MEDS: SODIUM CHLORIDE 0.65% NASAL SPRAY 45 ML BTL NASAL SCH ×2 (07:59→20:58)
[2016-12-06] MEDS: KETOCONAZOLE 2% CREAM 15 GM TOPICAL SCH ×2 (08:00→21:00)
[2016-12-06] MEDS: ARTIFICIAL TEARS OPTH SOLN 15 ML BTL EACH EYE SCH ×2 (08:00→20:57)
[2016-12-06] MEDS: BACITRACIN TOP OINT 15 GM TUBE TOP SCH ×2 (08:01→21:01)
--- NOTE | 2016-12-06 08:34 | HHI.PR ---
Subjective Remarks opens eyes on o2 , o2 SAT 95 ON T PIECE NO DITRESS TRACH. OK Feeding tube changed Objective Vital Signs Date Time Temp Pulse Resp B/P Pulse Ox O2 Delivery O2 Flow Rate FiO2 12/06/16 04:00 97.0 100 18 112/70 98 12/06/16 02:44 100 T-Piece 28 12/06/16 01:45 97.2 98 19 117/74 98 12/05/16 23:44 19 12/05/16 22:03 99 T-Piece 28 12/05/16 20:19 79 12/05/16 20:00 96.6 90 18 131/86 97 12/05/16 17:58 96 T-piece 6.00 28 12/05/16 17:58 96 T-piece 6.00 28 12/05/16 15:35 96.9 86 22 117/78 96 12/05/16 11:50 96.0 83 21 109/66 95 12/05/16 09:53 99 12/05/16 09:30 95 T-piece 28 12/05/16 09:30 95 T-piece 28 I/O 12/05/16 12/05/16 12/05/16 12/06/16 12/06/16 12/06/16 07:00 15:00 23:00 07:00 15:00 23:00 Intake Total 360 ml 200 ml 2950 ml 200 ml Output Total 400 ml 600 ml 300 ml 1800 ml Balance -40 ml -400 ml 2650 ml -1600 ml Tube Feeding 240 ml 2750 ml TPN/PPN 200 ml Other 120 ml 200 ml 200 ml Output Urine Total 400 ml 600 ml 300 ml 1800 ml # Bowel Movements 0 0 Procedures 01/02/16 PEG placement 01/02/16 tracheostomy 07/22/2016 Wide excision of sacral skin wound, biopsy of the cavity lining and debridement. PEG tube replacement 07/29/16 Objective Remarks GENERAL: SKIN: Warm and dry. HEAD: Atraumatic. Normocephalic. EYES: Pupils equal and round. No scleral icterus. No injection or drainage. ENT: No nasal bleeding or discharge. Mucous membranes pink and moist. NECK: Trachea midline. No JVD. TRACH. [place] CARDIOVASCULAR: Regular rate and rhythm. RESPIRATORY: No accessory muscle use. Clear to auscultation. Breath sounds equal bilaterally. GASTROINTESTINAL: Abdomen soft, non-tender, nondistended. Hepatic and splenic margins not palpable. MUSCULOSKELETAL: Extremities without clubbing, cyanosis, or edema. No obvious deformities. NEUROLOGICAL: Awake and alert. No obvious cranial nerve deficits. Motor grossly within normal limits. Five out of 5 muscle strength in the arms and legs. Normal speech. PSYCHIATRIC: Appropriate mood and affect; insight and judgment normal. Assessment and Plan Assessment and Plan impression respiratory failure CVA S/P TRACHEOSTOMY PLAN O2 NEEDED PULM. TOILET Brandon Taylor MD December 06, 2016 08:34
[2016-12-06] MEDS: PANTOPRAZOLE SODIUM 40 MG VIAL IV PUSH SCH ×2 (10:28→21:00)
--- NOTE | 2016-12-06 11:28 | RADRPT ---
EXAM DATE/TIME: 12/06/2016 11:07 [facility] COMPARISON: CHEST SINGLE AP, November 18, 2016, 10:14. INDICATIONS : Congestion MEDICAL HISTORY : Hypertension. Diabetes mellitus type II. SURGICAL HISTORY : None. ENCOUNTER: Subsequent ACUITY: 2 days PAIN SCORE: Non-responsive. LOCATION: Bilateral chest FINDINGS: A single view of the chest demonstrates the lungs to be symmetrically under aerated with minimal biba silar atelectatic changes. No confluent infiltrate or effusion. Heart size is normal. Multiple old he aled sided rib fracture deformities. Tracheostomy tube is stable in position. CONCLUSION: 1. Hypoinflation with minimal bibasilar atelectatic changes. 2. No confluent infiltrate or effusion. Bobby Gray MD on December 06, 2016 at 11:25 Board Certified Radiologist. This report was verified electronically.
--- NOTE | 2016-12-06 12:25 | HHI.PR ---
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 Pt non-verbal and not involved with his own care. Pt non-verbal and has T-piece in place. Pt awake and alert, tracking people in room. Pt's mother and ex- at bedside. No new concerns voiced. Pt's RN at bedside, no fever, cough, shortness of breath reported. Nurse reported no new issues or concerns. Objective Vitals Vital Signs Date Time Temp Pulse Resp B/P Pulse Ox O2 Delivery O2 Flow Rate FiO2 12/06/16 10:04 82 12/06/16 09:23 98 T-piece 28 12/06/16 09:23 98 T-piece 28 12/06/16 07:40 96.2 83 22 110/74 96 12/06/16 04:00 97.0 100 18 112/70 98 12/06/16 02:44 100 T-Piece 28 12/06/16 01:45 97.2 98 19 117/74 98 12/05/16 23:44 19 12/05/16 22:03 99 T-Piece 28 12/05/16 20:19 79 12/05/16 20:00 96.6 90 18 131/86 97 12/05/16 17:58 96 T-piece 6.00 28 12/05/16 17:58 96 T-piece 6.00 28 12/05/16 15:35 96.9 86 22 117/78 96 I/O 12/05/16 12/05/16 12/05/16 12/06/16 12/06/16 12/06/16 07:00 15:00 23:00 07:00 15:00 23:00 Intake Total 360 ml 200 ml 2950 ml 200 ml Output Total 400 ml 600 ml 300 ml 1800 ml Balance -40 ml -400 ml 2650 ml -1600 ml Tube Feeding 240 ml 2750 ml TPN/PPN 200 ml Other 120 ml 200 ml 200 ml Output Urine Total 400 ml 600 ml 300 ml 1800 ml # Bowel Movements 0 0 Imaging Last Impressions Chest X-Ray 12/06/16 0000 Signed Impressions: Service Date/Time: Tuesday, December 06, 2016 11:07 - CONCLUSION: 1. Hypoinflation with minimal bibasilar atelectatic changes. 2. No confluent infiltrate or effusion. Bobby Gray MD Tube Check 12/04/16 0000 Signed Impressions: Service Date/Time: Sunday, December 04, 2016 17:58 - CONCLUSION: Uncomplicated tube injection as above. the tube is in good position and functions normally. Moises Ramírez MD Tube Change 11/18/16 0000 Signed Impressions: Service Date/Time: Friday, November 18, 2016 17:38 - CONCLUSION: Uncomplicated gastrojejunostomy tube exchange as above. Jonel Jones Jr., MD Abdomen X-Ray 08/31/16 0000 Signed Impressions: Service Date/Time: Wednesday, August 31, 2016 16:36 - CONCLUSION: 1. No acute findings. Mild constipation. Durga Dotson MD Abdomen/Pelvis CT 04/12/16 0000 Signed Impressions: Service Date/Time: Tuesday, April 12, 2016 20:52 - CONCLUSION: 1. 6.4 cm necrotic mass or abscess in the soft tissues posteriorly just below the sacrum associated with some bony destructive change of the lower most sacrum and coccyx with inflammatory changes extending into the ischiorectal fossa and into the presacral retroperitoneum predominantly on the left side. There is associated fairly marked mural thickening of the anal verge and rectum. 2. There is gastrostomy and Arevalo catheter present. Stable abdominal aortic aneurysm. Durga Dotson MD Head Magnetic Resonance Angiography 03/05/16 0000 Signed Impressions: Service Date/Time: Saturday, March 05, 2016 09:26 - CONCLUSION: Persistent high-grade subtotal occlusive stenotic lesions in the distal right vertebral artery and proximal basilar artery with significant improvement in flow and recanalization following initial presentation of thrombosis. Stable interstitial circulation without significant stenosis. 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 There is decreasing restricted diffusion and increasing loss of volume characteristic of a subacute to chronic infarct. No evidence of acute infarct, acute hemorrhage mass or edema. Ernesto Kulkarni MD Head CT 01/16/16 0000 Signed Impressions: Service Date/Time: Saturday, January 16, 2016 10:51 - CONCLUSION: No extensive low density in the brainstem colin more prominent in the right the left extending into the right middle cerebellar peduncle consistent with brainstem infarct nonhemorrhagic acute Wellington West MD Neck Magnetic Resonance Angiography 12/22/15 1445 Signed Impressions: Service Date/Time: Tuesday, December 22, 2015 09:22 - CONCLUSION: Variant origin of the left vertebral artery from the aortic arch. No evidence of carotid stenosis. Glen Zamora MD Head/Brain Mag Res Venography 12/22/15 0000 Signed Impressions: Service Date/Time: Tuesday, December 22, 2015 09:22 - CONCLUSION: Normal MRV. Jonel Jones Jr., MD Objective Remarks GENERAL: Pt encountered laying a bed, non-verbal, tracking people in room, awake and seemingly alert. Not in acute distress. SKIN: Warm and dry. tattoo noted on right forearm. HEAD: Normocephalic. EYES: Non-icteric without injection or drainage. Pt noted to be wearing glasses. NECK: Supple, trachea midline. T-tube in place. CARDIOVASCULAR: Regular rate and rhythm without murmurs, gallops, or rubs. RESPIRATORY: Breath sounds equal bilaterally; rhonchii present for second day. No accessory muscle use. Trach tube in place. Bedside monitor indicated oxygen saturation was 98% GASTROINTESTINAL: Abdomen soft, non-tender, nondistended. GJ tube noted, area around insertion was dry and seemingly without leakage. MUSCULOSKELETAL: No cyanosis, or edema. SCD's noted to be on both legs. PSYCHIATRIC: Pt non-verbal, he appeared calm and not in distress. Procedures 01/02/16 PEG placement 01/02/16 tracheostomy 07/22/2016 Wide excision of sacral skin wound, biopsy of the cavity lining and debridement. PEG tube replacement 07/29/16 VAC changes- M-W-F 10/23- GJ tube replacement Medications and IVs Current Medications Medications (Trade) Dose Ordered Sig/Junior Route Start Time Stop Time Status Last Admin (NS Flush) 2 ml UNSCH PRN IVF 12/21/15 06:00 09/28/16 21:18 (Keppra Liq) 500 mg Q12HR TUBE 12/27/15 21:00 12/06/16 07:50 (Tylenol 650 Mg/ 20 ml Liq) 650 mg Q6H PRN TUBE 12/30/15 15:15 11/14/16 21:18 (Mycostatin Powder) 1 applic Q12HR TOPICAL 01/08/16 21:00 12/05/16 22:38 (Pill Splitter) 1 ea UNSCH PRN OTHER 01/14/16 08:30 (Acetic Acid 0.25% Irr Btl) 10 ml Q8HR IRRIGATION 02/05/16 16:00 12/06/16 06:00 (Ativan Inj) 0.5 mg Q4H PRN IV PUSH 03/07/16 23:00 (Paxil Liq) 20 mg DAILY@1900 PEG 03/12/16 19:00 12/05/16 17:56 (Levemir Inj) 35 units HS SQ 03/24/16 21:00 Hold 11/15/16 22:06 (Levsin) 0.25 mg Q4H PRN G-TUBE 04/11/16 10:30 08/31/16 05:02 (Zofran Inj) 4 mg Q6HR PRN IV PUSH 04/14/16 19:45 08/10/16 10:16 (Free Water) 200 ml Q4HR TUBE 04/16/16 12:00 12/06/16 07:59 (D50w (Vial) Inj) 25 ml UNSCH PRN IV 04/20/16 12:00 (Glucagon Inj) 1 mg UNSCH PRN IM/SQ 04/20/16 12:00 (K-Lyte Cl Eff) 25 meq DAILY TUBE 05/28/16 09:00 12/06/16 07:49 (Aspirin) 325 mg DAILY TUBE 05/27/16 11:40 12/06/16 07:50 (Heparin Inj) 5,000 units Q8HR SQ 06/11/16 14:00 12/06/16 06:26 (Baciguent Oint) 1 applic BID TOP 07/20/16 10:00 12/06/16 08:01 (Protonix Inj) 40 mg Q12H IV PUSH 07/30/16 10:15 12/06/16 10:28 ([place]) 1 spray BID NASAL 08/01/16 21:00 12/06/16 07:59 (Colace Liq) 100 mg BID PO 08/30/16 21:00 Hold 11/20/16 08:03 (Lactulose Liq) 30 ml DAILY PO 09/02/16 15:30 Hold 11/20/16 08:03 (Tears Naturale Opth Soln) 1 drop BID EACH EYE 09/05/16 21:00 12/06/16 08:00 (Morphine Inj) 1 mg Q24H PRN IV PUSH 09/17/16 14:30 10/22/16 02:00 (Nizoral 2% Cream) 1 applic Q12HR TOPICAL 09/24/16 21:00 12/04/16 20:14 (Senna Liq) 8.8 mg DAILY@1600 PO 09/25/16 17:00 Hold 11/12/16 16:45 (Fleets Enema (Adult)) 133 ml UNSCH PRN [place] 09/25/16 16:00 (Dulcolax Supp) 10 mg DAILY PRN RECTAL 09/26/16 15:30 10/20/16 12:53 (Milk Of Magnesia Liq) 30 ml DAILY PRN PO 10/13/16 14:30 11/30/16 22:04 ([place] 5-325 Mg) 1 tab Q6H PRN PO 10/13/16 18:45 12/05/16 22:35 (Flexeril) 5 mg HS PRN PO 10/14/16 14:15 10/22/16 21:17 (Cardizem) 30 mg Q12H PEG 11/20/16 01:00 12/06/16 01:58 (Lopressor) 25 mg BID PO 11/19/16 21:00 12/06/16 07:52 Loperamide HCl 2 mg 2 mg Q6H PRN PO 11/20/16 15:30 11/21/16 02:04 (NS 1000 ml Inj) 1,000 ml @ 30 mls/hr Q24H IV 11/28/16 19:45 12/05/16 19:45 Urinary Catheter: Yes Assessment to: Continue Arevalo insert reason: Prolonged Immobilization Date of Insertion: Oct 12, 2016 A/P Problem List: (1) CVA (cerebral vascular accident) ICD Code: I63.9 Status: Acute (2) A-fib ICD Code: I48.91 Status: Chronic (3) DM (diabetes mellitus) ICD Code: E11.9 Status: Chronic Assessment and Plan 60 year-old male with: //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 Tracks with his eyes. Continue Keppra for seizure prophylaxis. PT/OT signed off as patient is unable to participate. -Need placement. Difficult. Appreciate case management assistance. 12/02/16: Rehab Medicine (Dr. Pickens) saw pt on 12/04/16, rec's on chart. //Chronic respiratory failure -Secondary to CVA. Status post tracheostomy. Continue pulmonary toilet and bronchodilators as needed. Continue trach care, suctioning. Levsin as needed. -Pulmonary currently following . Appreciate assistance. -Pt noted to have oxygenation (per bedside monitor) improvement noted after pt was repositioned and he received a breathing treatment. Oxygen saturation was noted to be 95% on follow-up visit. -12/06/16 pt noted to have Rhonchi for second day, chest x-ray ordered. No acute findings noted. pt without cough and fever. monitor. //Atrial fibrillation -Continue rate control with Cardizem and metoprolol. Echocardiogram in November 2015 shows preserved ejection fraction. Coumadin discontinued secondary to bleeding. Rate controlled. Continue aspirin and prophylactic heparin dose. //History of non-Hodgkin's lymphoma - Status post brain biopsy on December 13 by neurosurgery. Pathology consistent with acute infarct without evidence of lymphoma. Oncology has signed all //Diabetes mellitus -Hemoglobin A1c is 7. Continue Levemir. Monitor Accu-Cheks and cover with sliding scale insulin. Overall blood sugar continues well controlled. //Decubitus ulcer stage IV -Continue wound care, twice-daily dressing changes. Wound care recommendations. Continue pressure relief measures including turning and positioning. Patient's family has declined a diverting colostomy. Previous Wound culture growing Klebsiella. on Augmentin. Status post wide excision of sacral skin and biopsy of the cavity lining with debridement on 07/22/16. Continue scheduled [place] every 8 hours. -Continue to monitor for pain. //Gastric ulcer, reflux esophagitis - EGD on 07/30/16 showed gastric ulcers. Appreciate GI recommendations. Continue PPI. H&H stable as of last recheck.. //UTI pseudomonas aeruginosa treated with abx -Resolved. - Repeat Ucx 08/28/16 negative. -Pt seen by ID (Dr. Alvarez) on 11/28/16. //Constipation: -Having regular bowel movements. -on lactulose. Monitor. -Notes of 11/21/16 indicated pt had diarrhea, he was checked for C. Diff and was negative. Imodium to be used. //FEN: Continue Nepro tube feeds with free water flushes. Appreciate dietary assistance. 12/02/16: Per Dr. Leal, IR to be consulted to replace GJ tube. -pt to have his GJ tube replaced later today (12/03/16). Replacement procedure did not occur on 12/03/16 and is being delayed until later today (12/04/16). -GJ tube replaced on 12/04/16. Per IR physician's note, no obstruction found and tube was in the correct position and operating normally. //DVT prophylaxis: SCDs/ subq heparin. Discussed with pt's mother and ex- (at bedside), RN. Discharge Planning Per CM on 11/29: pt has no payor source for rehab, declined by multiple facilities. Problem Qualifiers (1) CVA (cerebral vascular accident): (2) DM (diabetes mellitus): Qualified Code: E11.9 - Type 2 diabetes mellitus without complications Javier Harris Jr. December 06, 2016 12:25
[2016-12-06] MEDS: NYSTATIN 100,000 U/GM PWD 15 GM BTL TOPICAL SCH ×2 (16:15→21:01)
[2016-12-06] MEDS: PARoxetine HCL SUSP 20 MG/10 ML UDC PEG SCH (18:29)
[2016-12-06] MEDS: SODIUM CHLOR 0.9% 1000 ML INJ 1,000 ML IV SCH (19:45)
[2016-12-06] MEDS: ACETAMINOPHEN/HYDROcodone 325 MG/5 MG TAB PO PRN (20:59)
[2016-12-07] VITALS (9 sets, daily range): BP systolic 110–124; BP diastolic 74–83; PULSE 76–104; RESP 18–20; TEMP 96.3–97.6; O2SAT 92–99
[2016-12-07] MEDS: DILTIAZEM HCL 30 MG TAB PEG SCH ×2 (00:39→13:00)
[2016-12-07] MEDS: FREE WATER TUBE SCH ×4 (04:00→21:10)
[2016-12-07] MEDS: HEPARIN SODIUM - SQ 10,000 UNITS/ML VIAL SQ SCH ×3 (05:49→21:11)
[2016-12-07] MEDS: INSULIN ASPART SUPPLEMENTAL SCALE SQ SCH (05:50)
[2016-12-07] MEDS: ACETIC ACID 0.25% SOLN 1000 ML IRR BTL IRRIGATION SCH ×2 (05:50→21:10)
[2016-12-07] MEDS: POTASSIUM CHLORIDE 25 MEQ EFFERVESCENT TAB TUBE SCH (09:00)
[2016-12-07] MEDS: SODIUM CHLORIDE 0.65% NASAL SPRAY 45 ML BTL NASAL SCH ×2 (09:00→21:00)
[2016-12-07] MEDS: NYSTATIN 100,000 U/GM PWD 15 GM BTL TOPICAL SCH ×2 (09:00→21:00)
[2016-12-07] MEDS: ARTIFICIAL TEARS OPTH SOLN 15 ML BTL EACH EYE SCH ×2 (09:00→21:00)
[2016-12-07] MEDS: ASPIRIN 325 MG TAB TUBE SCH (09:00)
[2016-12-07] MEDS: levETIRAcetam 500 MG/5 ML UDC TUBE SCH ×2 (09:00→21:11)
[2016-12-07] MEDS: METOPROLOL TARTRATE 50 MG TAB PO SCH ×2 (09:00→21:11)
[2016-12-07] MEDS: BACITRACIN TOP OINT 15 GM TUBE TOP SCH ×2 (09:00→21:00)
--- NOTE | 2016-12-07 11:35 | HHI.PR ---
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 Pt non-verbal and not involved with his own care. Pt has T-piece in place. Pt with variable awake/alertness, tracking people in room and sleeping Pt's mother and ex- at bedside. Family and RN stated pt's J tube is now clogged. Pt's RN at bedside, no fever, cough, shortness of breath reported. Rhonchi noted for past two days is reportedly "gone." Nurse reported no other issues/concerns noted or reported. Objective Vitals Vital Signs Date Time Temp Pulse Resp B/P Pulse Ox O2 Delivery O2 Flow Rate FiO2 12/07/16 08:00 96.4 86 20 123/82 98 12/07/16 07:00 98 Trach Collar 28 Humidified 12/07/16 05:53 97.6 89 18 110/79 12/07/16 00:00 97.0 82 20 119/81 98 12/06/16 21:59 18 12/06/16 21:00 83 12/06/16 21:00 99 Trach Collar 28 Humidified 12/06/16 19:49 83 12/06/16 19:30 95.6 83 18 115/82 98 12/06/16 15:45 95.7 85 22 125/84 100 12/06/16 11:40 95.2 77 22 119/82 96 I/O 12/06/16 12/06/16 12/06/16 12/07/16 12/07/16 12/07/16 07:00 15:00 23:00 07:00 15:00 23:00 Intake Total 200 ml 400 ml 200 ml Output Total 1800 ml 400 ml 900 ml Balance -1600 ml 0 ml 200 ml -900 ml Other 200 ml 400 ml 200 ml Output Urine Total 1800 ml 400 ml 900 ml Imaging No imaging ordered or resulted in the past 24 hours. Objective Remarks GENERAL: Pt encountered laying a bed, non-verbal, tracking people in room, variably awake/asleep. Not in acute distress. SKIN: Warm and dry. tattoo noted on right forearm. HEAD: Normocephalic. EYES: Non-icteric without injection or drainage. Pt noted to be wearing glasses. NECK: Supple, trachea midline. T-tube in place. CARDIOVASCULAR: Regular rate and rhythm without murmurs, gallops, or rubs. RESPIRATORY: Breath sounds equal bilaterally; rhonchi noted past two days are absent. No accessory muscle use. Trach tube in place. Bedside monitor indicated oxygen saturation was 98% GASTROINTESTINAL: Abdomen soft, non-tender, nondistended. GJ tube noted, area around insertion was dry and seemingly without leakage. MUSCULOSKELETAL: No cyanosis, or edema. SCD's noted to be on both legs. PSYCHIATRIC: Pt non-verbal, he appeared calm and not in distress. Procedures 01/02/16 PEG placement 01/02/16 tracheostomy 07/22/2016 Wide excision of sacral skin wound, biopsy of the cavity lining and debridement. 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 Tracks with his eyes. Continue Keppra for seizure prophylaxis. PT/OT signed off as patient is unable to participate. -Need placement. Difficult. Appreciate case management assistance. 12/02/16: Rehab Medicine (Dr. Pickens) saw pt on 12/04/16, rec's on chart. //Chronic respiratory failure -Secondary to CVA. Status post tracheostomy. Continue pulmonary toilet and bronchodilators as needed. Continue trach care, suctioning. Levsin as needed. -Pulmonary currently following . Appreciate assistance. -Pt noted to have oxygenation (per bedside monitor) improvement noted after pt was repositioned and he received a breathing treatment. Oxygen saturation was noted to be 95% on follow-up visit. -12/06/16 pt noted to have Rhonchi for second day, chest x-ray ordered. No acute findings noted. pt without cough and fever. monitor. -12/07/16 Rhonchi not present upon exam. Discussed with Dr. Leal and he advised using Mucomyst should rhonchi recur. //Atrial fibrillation -Continue rate control with Cardizem and metoprolol. Echocardiogram in November 2015 shows preserved ejection fraction. Coumadin discontinued secondary to bleeding. Rate controlled. Continue aspirin and prophylactic heparin dose. //History of non-Hodgkin's lymphoma - Status post brain biopsy on December 13 by neurosurgery. Pathology consistent with acute infarct without evidence of lymphoma. Oncology has signed all //Diabetes mellitus -Hemoglobin A1c is 7. Continue Levemir. Monitor Accu-Cheks and cover with sliding scale insulin. Overall blood sugar continues well controlled. //Decubitus ulcer stage IV -Continue wound care, twice-daily dressing changes. Wound care recommendations. Continue pressure relief measures including turning and positioning. Patient's family has declined a diverting colostomy. Previous Wound culture growing Klebsiella. on Augmentin. Status post wide excision of sacral skin and biopsy of the cavity lining with debridement on 07/22/16. Continue scheduled [place] every 8 hours. -Continue to monitor for pain. //Gastric ulcer, reflux esophagitis - EGD on 07/30/16 showed gastric ulcers. Appreciate GI recommendations. Continue PPI. H&H stable as of last recheck.. //UTI pseudomonas aeruginosa treated with abx -Resolved. - Repeat Ucx 08/28/16 negative. -Pt seen by ID (Dr. Alvarez) on 11/28/16. //Constipation: -Having regular bowel movements. -on lactulose. Monitor. -Notes of 11/21/16 indicated pt had diarrhea, he was checked for C. Diff and was negative. Imodium to be used. //FEN: Continue Nepro tube feeds with free water flushes. Appreciate dietary assistance. 12/02/16: Per SUSAN Huizar to be consulted to replace GJ tube. -pt to have his GJ tube replaced later today (12/03/16). Replacement procedure did not occur on 12/03/16 and is being delayed until later today (12/04/16). -GJ tube replaced on 12/04/16. Per IR physician's note, no obstruction found and tube was in the correct position and operating normally. 12/07/16 J tube is clogged, nursing has applied water as well as soda to the line to try and flush the line with no progress at this time. G tube is patent and will use for feeding and medication. May need to consider increased rate of delivery to prevent clogging as well as more frequent flushing should patency of J tube be regained. Dr. Leal informed. //DVT prophylaxis: SCDs/ subq heparin. Discussed with pt's mother and ex- (at bedside), RN (bedside). Discharge Planning Per on 11/29: pt has no payor source for rehab, declined by multiple facilities. Problem Qualifiers (1) CVA (cerebral vascular accident): (2) DM (diabetes mellitus): Qualified Code: E11.9 - Type 2 diabetes mellitus without complications Javier Harris Jr. December 07, 2016 11:35
[2016-12-07] MEDS: PANTOPRAZOLE SODIUM 40 MG VIAL IV PUSH SCH ×2 (11:55→21:12)
--- NOTE | 2016-12-07 16:43 | HHI.PR ---
Subjective Remarks opens eyes on o2 , o2 SAT 95 ON T PIECE NO DITRESS TRACH. OK Feeding tube changed Objective Vital Signs Date Time Temp Pulse Resp B/P Pulse Ox O2 Delivery O2 Flow Rate FiO2 12/07/16 16:00 96.3 83 20 124/74 99 12/07/16 12:10 99 T-piece 28 12/07/16 12:10 99 T-piece 28 12/07/16 12:00 97.0 76 20 118/83 99 12/07/16 08:00 96.4 86 20 123/82 98 12/07/16 07:00 98 Trach Collar 28 Humidified 12/07/16 07:00 79 12/07/16 05:53 97.6 89 18 110/79 12/07/16 00:00 97.0 82 20 119/81 98 12/06/16 21:59 18 12/06/16 21:00 83 12/06/16 21:00 99 Trach Collar 28 Humidified 12/06/16 19:49 83 12/06/16 19:30 95.6 83 18 115/82 98 I/O 12/06/16 12/06/16 12/06/16 12/07/16 12/07/16 12/07/16 06:59 14:59 22:59 06:59 14:59 22:59 Intake Total 200 ml 400 ml 200 ml Output Total 1800 ml 400 ml 900 ml Balance -1600 ml 0 ml 200 ml -900 ml Other 200 ml 400 ml 200 ml Output Urine Total 1800 ml 400 ml 900 ml Procedures 01/02/16 PEG placement 01/02/16 tracheostomy 07/22/2016 Wide excision of sacral skin wound, biopsy of the cavity lining and debridement. PEG tube replacement 07/29/16 Objective Remarks GENERAL: SKIN: Warm and dry. HEAD: Atraumatic. Normocephalic. EYES: Pupils equal and round. No scleral icterus. No injection or drainage. ENT: No nasal bleeding or discharge. Mucous membranes pink and moist. NECK: Trachea midline. No JVD. TRACH. [place] CARDIOVASCULAR: Regular rate and rhythm. RESPIRATORY: No accessory muscle use. Clear to auscultation. Breath sounds equal bilaterally. GASTROINTESTINAL: Abdomen soft, non-tender, nondistended. Hepatic and splenic margins not palpable. MUSCULOSKELETAL: Extremities without clubbing, cyanosis, or edema. No obvious deformities. NEUROLOGICAL: Awake and alert. No obvious cranial nerve deficits. Motor grossly within normal limits. Five out of 5 muscle strength in the arms and legs. Normal speech. PSYCHIATRIC: Appropriate mood and affect; insight and judgment normal. Assessment and Plan Assessment and Plan impression respiratory failure CVA S/P TRACHEOSTOMY PLAN O2 NEEDED PULM. TOILET Brandon Taylor MD December 07, 2016 16:43
[2016-12-07] MEDS: PARoxetine HCL SUSP 20 MG/10 ML UDC PEG SCH (18:26)
[2016-12-07] MEDS: SODIUM CHLOR 0.9% 1000 ML INJ 1,000 ML IV SCH (19:45)
[2016-12-07] MEDS: KETOCONAZOLE 2% CREAM 15 GM TOPICAL SCH (21:00)
[2016-12-08] VITALS (11 sets, daily range): BP systolic 114–141; BP diastolic 73–90; PULSE 72–100; RESP 18; TEMP 95.4–98.6; O2SAT 95–100
[2016-12-08] MEDS: DILTIAZEM HCL 30 MG TAB PEG SCH ×2 (01:24→13:28)
[2016-12-08] MEDS: FREE WATER TUBE SCH ×6 (01:25→21:51)
[2016-12-08] MEDS: INSULIN ASPART SUPPLEMENTAL SCALE SQ SCH (05:57)
[2016-12-08] MEDS: HEPARIN SODIUM - SQ 10,000 UNITS/ML VIAL SQ SCH ×3 (06:01→21:46)
[2016-12-08] MEDS: ACETIC ACID 0.25% SOLN 1000 ML IRR BTL IRRIGATION SCH ×3 (06:02→21:47)
[2016-12-08] MEDS: SODIUM CHLORIDE 0.65% NASAL SPRAY 45 ML BTL NASAL SCH ×2 (09:00→21:50)
[2016-12-08] MEDS: ARTIFICIAL TEARS OPTH SOLN 15 ML BTL EACH EYE SCH ×2 (09:00→21:50)
[2016-12-08] MEDS: NYSTATIN 100,000 U/GM PWD 15 GM BTL TOPICAL SCH ×2 (09:00→21:47)
[2016-12-08] MEDS: BACITRACIN TOP OINT 15 GM TUBE TOP SCH ×2 (09:00→21:50)
[2016-12-08] MEDS: POTASSIUM CHLORIDE 25 MEQ EFFERVESCENT TAB TUBE SCH (09:03)
[2016-12-08] MEDS: levETIRAcetam 500 MG/5 ML UDC TUBE SCH ×2 (09:03→21:25)
[2016-12-08] MEDS: METOPROLOL TARTRATE 50 MG TAB PO SCH ×2 (09:04→21:25)
[2016-12-08] MEDS: ASPIRIN 325 MG TAB TUBE SCH (09:04)
[2016-12-08] MEDS: BISACODYL 10 MG SUPP RECTAL PRN (09:17)
[2016-12-08] MEDS: PANTOPRAZOLE SODIUM 40 MG VIAL IV PUSH SCH ×2 (09:20→21:25)
--- NOTE | 2016-12-08 13:14 | HHI.PR ---
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 Pt non-verbal and not involved with his own care. Pt has T-piece in place. Pt was awake, tracking people in room. Pt's mother and ex- at bedside. Family and RN stated pt's J tube remains clogged. Discussed with Pt's RN; no fever, cough, shortness of breath reported. Course breath sounds were reported. Family voiced concerns pt has not had a bowel movement in 3-4 days and requesting "something to make him go to the bathrooom". Pt's Rn said he gave a "Dulcolax suppository" to pt on 12/08/16Pt has been receiving supplementation at 35 ml/ hour. Nurse reported no other issues/concerns noted or reported. Objective Vitals Vital Signs Date Time Temp Pulse Resp B/P Pulse Ox O2 Delivery O2 Flow Rate FiO2 12/08/16 08:50 98 T-piece 28 12/08/16 08:25 98.5 98 128/82 95 12/08/16 04:00 98.0 97 18 114/73 98 12/08/16 00:00 98.0 72 18 120/81 96 12/07/16 22:38 99 T-piece 6.00 28 12/07/16 22:38 99 T-piece 6.00 28 12/07/16 21:00 Trach Collar 28 Humidified 12/07/16 20:00 97.4 95 20 119/74 92 12/07/16 20:00 104 12/07/16 16:00 96.3 83 20 124/74 99 12/07/16 16:00 96.3 83 20 124/74 99 I/O 12/07/16 12/07/16 12/07/16 12/08/16 12/08/16 12/08/16 06:59 14:59 22:59 06:59 14:59 22:59 Intake Total 200 ml 400 ml Output Total 900 ml 1000 ml Balance -900 ml 200 ml -600 ml Other 200 ml 400 ml Output Urine Total 900 ml 1000 ml Imaging No new imaging ordered or resulted within the past 24 hours. Objective Remarks GENERAL: Pt encountered laying a bed, non-verbal, tracking people in room, awake. Not in acute distress. SKIN: Warm and dry. tattoo noted on right forearm. HEAD: Normocephalic. EYES: Non-icteric without injection or drainage. Pt noted to be wearing glasses. NECK: Supple, trachea midline. T-tube in place. CARDIOVASCULAR: Regular rate and rhythm without murmurs, gallops, or rubs. RESPIRATORY: Breath sounds equal bilaterally;. No accessory muscle use. Trach tube in place. Bedside monitor indicated oxygen saturation was 98% GASTROINTESTINAL: Abdomen soft, non-tender, nondistended. GJ tube noted, area around insertion was dry and seemingly without leakage. MUSCULOSKELETAL: No cyanosis, or edema. SCD's noted to be on both legs. PSYCHIATRIC: Pt non-verbal, he appeared calm and not in distress. Procedures 01/02/16 PEG placement 01/02/16 tracheostomy 07/22/2016 Wide excision of sacral skin wound, biopsy of the cavity lining and debridement. PEG tube replacement 07/29/16 VAC changes- M-W-F 4- GJ tube replacement Medications and IVs Current Medications Medications (Trade) Dose Ordered Sig/Junior Route Start Time Stop Time Status Last Admin (NS Flush) 2 ml UNSCH PRN IVF 12/21/15 06:00 09/28/16 21:18 (Keppra Liq) 500 mg Q12HR TUBE 12/27/15 21:00 12/08/16 09:03 (Tylenol 650 Mg/ 20 ml Liq) 650 mg Q6H PRN TUBE 12/30/15 15:15 11/14/16 21:18 (Mycostatin Powder) 1 applic Q12HR TOPICAL 01/08/16 21:00 12/07/16 21:00 (Pill Splitter) 1 ea UNSCH PRN OTHER 01/14/16 08:30 (Acetic Acid 0.25% Irr Btl) 10 ml Q8HR IRRIGATION 02/05/16 16:00 12/08/16 06:02 (Ativan Inj) 0.5 mg Q4H PRN IV PUSH 03/07/16 23:00 (Paxil Liq) 20 mg DAILY@1900 PEG 03/12/16 19:00 12/07/16 18:26 (Levemir Inj) 35 units HS SQ 03/24/16 21:00 Hold 11/15/16 22:06 (Levsin) 0.25 mg Q4H PRN G-TUBE 04/11/16 10:30 08/31/16 05:02 (Zofran Inj) 4 mg Q6HR PRN IV PUSH 04/14/16 19:45 08/10/16 10:16 (Free Water) 200 ml Q4HR TUBE 04/16/16 12:00 12/08/16 04:00 (D50w (Vial) Inj) 25 ml UNSCH PRN IV 04/20/16 12:00 (Glucagon Inj) 1 mg UNSCH PRN IM/SQ 04/20/16 12:00 (K-Lyte Cl Eff) 25 meq DAILY TUBE 05/28/16 09:00 12/08/16 09:03 (Aspirin) 325 mg DAILY TUBE 05/27/16 11:40 12/08/16 09:04 (Heparin Inj) 5,000 units Q8HR SQ 06/11/16 14:00 12/08/16 06:01 (Baciguent Oint) 1 applic BID TOP 07/20/16 10:00 12/07/16 21:00 (Protonix Inj) 40 mg Q12H IV PUSH 07/30/16 10:15 12/08/16 09:20 ([place]) 1 spray BID NASAL 08/01/16 21:00 12/07/16 21:00 (Colace Liq) 100 mg BID PO 08/30/16 21:00 Hold 11/20/16 08:03 (Lactulose Liq) 30 ml DAILY PO 09/02/16 15:30 Hold 11/20/16 08:03 (Tears Naturale Opth Soln) 1 drop BID EACH EYE 09/05/16 21:00 12/07/16 21:00 (Morphine Inj) 1 mg Q24H PRN IV PUSH 09/17/16 14:30 10/22/16 02:00 (Nizoral 2% Cream) 1 applic Q12HR TOPICAL 09/24/16 21:00 12/04/16 20:14 (Senna Liq) 8.8 mg DAILY@1600 PO 09/25/16 17:00 Hold 11/12/16 16:45 (Fleets Enema (Adult)) 133 ml UNSCH PRN VT 09/25/16 16:00 (Dulcolax Supp) 10 mg DAILY PRN RECTAL 09/26/16 15:30 12/08/16 09:17 (Milk Of Magnesia Liq) 30 ml DAILY PRN PO 10/13/16 14:30 11/30/16 22:04 ([place] 5-325 Mg) 1 tab Q6H PRN PO 10/13/16 18:45 12/06/16 20:59 (Flexeril) 5 mg HS PRN PO 10/14/16 14:15 10/22/16 21:17 (Cardizem) 30 mg Q12H PEG 11/20/16 01:00 12/08/16 01:24 (Lopressor) 25 mg BID PO 11/19/16 21:00 12/08/16 09:04 Loperamide HCl 2 mg 2 mg Q6H PRN PO 11/20/16 15:30 11/21/16 02:04 (NS 1000 ml Inj) 1,000 ml @ 30 mls/hr Q24H IV 11/28/16 19:45 12/05/16 19:45 Urinary Catheter: Yes Assessment to: Continue Arevalo insert reason: Prolonged Immobilization Date of Insertion: Oct 12, 2016 A/P Problem List: (1) CVA (cerebral vascular accident) ICD Code: I63.9 Status: Acute (2) A-fib ICD Code: I48.91 Status: Chronic (3) DM (diabetes mellitus) ICD Code: E11.9 Status: Chronic Assessment and Plan 60 year-old male with: //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 Tracks with his eyes. Continue Keppra for seizure prophylaxis. PT/OT signed off as patient is unable to participate. -Need placement. Difficult. Appreciate case management assistance. 12/02/16: Rehab Medicine (Dr. Pickens) saw pt on 12/04/16, rec's on chart. //Chronic respiratory failure -Secondary to CVA. Status post tracheostomy. Continue pulmonary toilet and bronchodilators as needed. Continue trach care, suctioning. Levsin as needed. -Pulmonary currently following . Appreciate assistance. -Pt noted to have oxygenation (per bedside monitor) improvement noted after pt was repositioned and he received a breathing treatment. Oxygen saturation was noted to be 95% on follow-up visit. -12/06/16 pt noted to have Rhonchi for second day, chest x-ray ordered. No acute findings noted. pt without cough and fever. monitor. -12/07/16 Rhonchi not present upon exam. Discussed with Dr. Leal and he advised using Mucomyst should rhonchi recur. Dr. Taylor with pulmonology continues to follow //Atrial fibrillation -Continue rate control with Cardizem and metoprolol. Echocardiogram in November 2015 shows preserved ejection fraction. Coumadin discontinued secondary to bleeding. Rate controlled. Continue aspirin and prophylactic heparin dose. //History of non-Hodgkin's lymphoma - Status post brain biopsy on December 13 by neurosurgery. Pathology consistent with acute infarct without evidence of lymphoma. Oncology has signed all //Diabetes mellitus -Hemoglobin A1c is 7. Continue Levemir. Monitor Accu-Cheks and cover with sliding scale insulin. Overall blood sugar continues well controlled. //Decubitus ulcer stage IV -Continue wound care, twice-daily dressing changes. Wound care recommendations. Continue pressure relief measures including turning and positioning. Patient's family has declined a diverting colostomy. Previous Wound culture growing Klebsiella. on Augmentin. Status post wide excision of sacral skin and biopsy of the cavity lining with debridement on 07/22/16. Continue scheduled [place] every 8 hours. -Continue to monitor for pain. //Gastric ulcer, reflux esophagitis - EGD on 07/30/16 showed gastric ulcers. Appreciate GI recommendations. Continue PPI. H&H stable as of last recheck.. //UTI pseudomonas aeruginosa treated with abx -Resolved. - Repeat Ucx 08/28/16 negative. -Pt seen by ID (Dr. Alvarez) on 11/28/16. //Constipation: -Having regular bowel movements. -on lactulose. Monitor. -Notes of 11/21/16 indicated pt had diarrhea, he was checked for C. Diff and was negative. Imodium to be used. //FEN: Continue Nepro tube feeds with free water flushes. Appreciate dietary assistance. 12/02/16: Per Dr. Leal, IR to be consulted to replace GJ tube. -pt to have his GJ tube replaced later today (12/03/16). Replacement procedure did not occur on 12/03/16 and is being delayed until later today (12/04/16). -GJ tube replaced on 12/04/16. Per IR physician's note, no obstruction found and tube was in the correct position and operating normally. 12/07/16 J tube is clogged, nursing has applied water as well as soda to the line to try and flush the line with no progress at this time. G tube is patent and will use for feeding and medication. May need to consider increased rate of delivery to prevent clogging as well as more frequent flushing should patency of J tube be regained. Dr. Leal informed.12/08/16. J tube remains clogged, RN increased flow rate through G tube to 35 ml/hour. //DVT prophylaxis: SCDs/ subq heparin. Discussed with pt's mother and ex- (at bedside), RN (bedside). Discharge Planning Per CM on 11/29: pt has no payor source for rehab, declined by multiple facilities. Problem Qualifiers (1) CVA (cerebral vascular accident): (2) DM (diabetes mellitus): Qualified Code: E11.9 - Type 2 diabetes mellitus without complications Javier Harris Jr. December 08, 2016 13:14
--- NOTE | 2016-12-08 13:43 | HHI.PR ---
Subjective Remarks opens eyes on o2 , o2 SAT 95 ON T PIECE NO DITRESS TRACH. [place] Objective Vital Signs Date Time Temp Pulse Resp B/P Pulse Ox O2 Delivery O2 Flow Rate FiO2 12/08/16 08:50 98 T-piece 28 12/08/16 08:25 98.5 98 128/82 95 12/08/16 04:00 98.0 97 18 114/73 98 12/08/16 00:00 98.0 72 18 120/81 96 12/07/16 22:38 99 T-piece 6.00 28 12/07/16 22:38 99 T-piece 6.00 28 12/07/16 21:00 Trach Collar 28 Humidified 12/07/16 20:00 97.4 95 20 119/74 92 12/07/16 20:00 104 12/07/16 16:00 96.3 83 20 124/74 99 12/07/16 16:00 96.3 83 20 124/74 99 I/O 12/07/16 12/07/16 12/07/16 12/08/16 12/08/16 12/08/16 07:00 15:00 23:00 07:00 15:00 23:00 Intake Total 200 ml 400 ml Output Total 900 ml 1000 ml Balance -900 ml 200 ml -600 ml Other 200 ml 400 ml Output Urine Total 900 ml 1000 ml Procedures 01/02/16 PEG placement 01/02/16 tracheostomy 07/22/2016 Wide excision of sacral skin wound, biopsy of the cavity lining and debridement. PEG tube replacement 07/29/16 Objective Remarks GENERAL: SKIN: Warm and dry. HEAD: Atraumatic. Normocephalic. EYES: Pupils equal and round. No scleral icterus. No injection or drainage. ENT: No nasal bleeding or discharge. Mucous membranes pink and moist. NECK: Trachea midline. No JVD. TRACH. [place] CARDIOVASCULAR: Regular rate and rhythm. RESPIRATORY: No accessory muscle use. Clear to auscultation. Breath sounds equal bilaterally. GASTROINTESTINAL: Abdomen soft, non-tender, nondistended. Hepatic and splenic margins not palpable. MUSCULOSKELETAL: Extremities without clubbing, cyanosis, or edema. No obvious deformities. NEUROLOGICAL: Awake and alert. No obvious cranial nerve deficits. Motor grossly within normal limits. Five out of 5 muscle strength in the arms and legs. Normal speech. PSYCHIATRIC: Appropriate mood and affect; insight and judgment normal. Assessment and Plan Assessment and Plan impression respiratory failure CVA S/P TRACHEOSTOMY PLAN O2 NEEDED PULM. TOILET Brandon Taylor MD December 08, 2016 13:43
[2016-12-08] MEDS: PARoxetine HCL SUSP 20 MG/10 ML UDC PEG SCH (18:33)
[2016-12-08] MEDS: SODIUM CHLOR 0.9% 1000 ML INJ 1,000 ML IV SCH (19:45)
[2016-12-08] MEDS: KETOCONAZOLE 2% CREAM 15 GM TOPICAL SCH ×2 (21:00→21:51)
[2016-12-08] MEDS: ACETAMINOPHEN/HYDROcodone 325 MG/5 MG TAB PO PRN (21:24)
[2016-12-09] VITALS (9 sets, daily range): BP systolic 102–133; BP diastolic 67–82; PULSE 72–109; RESP 18–20; TEMP 95.2–98.3; O2SAT 91–100
[2016-12-09] MEDS: DILTIAZEM HCL 30 MG TAB PEG SCH ×2 (01:04→14:00)
[2016-12-09] MEDS: FREE WATER TUBE SCH ×5 (01:04→20:00)
[2016-12-09] MEDS: HEPARIN SODIUM - SQ 10,000 UNITS/ML VIAL SQ SCH ×3 (05:51→21:09)
[2016-12-09] MEDS: ACETIC ACID 0.25% SOLN 1000 ML IRR BTL IRRIGATION SCH ×3 (05:52→21:13)
[2016-12-09] MEDS: INSULIN ASPART SUPPLEMENTAL SCALE SQ SCH (05:57)
[2016-12-09] MEDS: SODIUM CHLORIDE 0.65% NASAL SPRAY 45 ML BTL NASAL SCH ×2 (09:00→21:12)
[2016-12-09] MEDS: KETOCONAZOLE 2% CREAM 15 GM TOPICAL SCH ×2 (09:30→21:00)
[2016-12-09] MEDS: POTASSIUM CHLORIDE 25 MEQ EFFERVESCENT TAB TUBE SCH (09:56)
[2016-12-09] MEDS: ASPIRIN 325 MG TAB TUBE SCH (09:58)
[2016-12-09] MEDS: METOPROLOL TARTRATE 50 MG TAB PO SCH ×2 (09:58→21:09)
[2016-12-09] MEDS: levETIRAcetam 500 MG/5 ML UDC TUBE SCH ×2 (09:59→21:10)
[2016-12-09] MEDS: NYSTATIN 100,000 U/GM PWD 15 GM BTL TOPICAL SCH ×2 (09:59→21:13)
[2016-12-09] MEDS: ARTIFICIAL TEARS OPTH SOLN 15 ML BTL EACH EYE SCH ×2 (09:59→21:00)
[2016-12-09] MEDS: BACITRACIN TOP OINT 15 GM TUBE TOP SCH ×2 (10:00→21:00)
[2016-12-09] MEDS: PANTOPRAZOLE SODIUM 40 MG VIAL IV PUSH SCH ×2 (10:01→21:10)
--- NOTE | 2016-12-09 15:24 | HHI.PR ---
Subjective Remarks In bed. Family at bedside. Feeding tube is flushed and working , diet per dietary recommendations, discussed with the nurse nad family. No fevers overnight. No events overnight. Appears stable. Objective Vitals Vital Signs Date Time Temp Pulse Resp B/P Pulse Ox O2 Delivery O2 Flow Rate FiO2 12/09/16 14:00 74 114/71 12/09/16 12:00 96.8 76 20 104/73 98 12/09/16 09:18 98 T-piece 28 12/09/16 08:00 98.3 84 20 102/67 97 12/09/16 04:00 95.2 77 20 121/75 97 12/09/16 00:00 95.8 109 18 133/80 100 12/08/16 21:15 Trach Collar 28 Humidified 12/08/16 20:34 99 T-piece 58 12/08/16 20:34 99 T-piece 28 12/08/16 20:30 95.4 99 18 141/90 100 12/08/16 20:00 95 12/08/16 19:26 98.3 88 127/84 100 12/08/16 16:00 98.3 88 127/84 100 I/O 12/08/16 12/08/16 12/08/16 12/09/16 12/09/16 12/09/16 06:59 14:59 22:59 06:59 14:59 22:59 Intake Total 400 ml 200 ml 400 ml 260 ml Output Total 1000 ml 1100 ml 600 ml Balance -600 ml -900 ml -200 ml 260 ml Tube Irrigant 60 ml Other 400 ml 200 ml 400 ml 200 ml Output Urine Total 1000 ml 1100 ml 600 ml Imaging Last Impressions Chest X-Ray 12/06/16 0000 Signed Impressions: Service Date/Time: Tuesday, December 06, 2016 11:07 - CONCLUSION: 1. Hypoinflation with minimal bibasilar atelectatic changes. 2. No confluent infiltrate or effusion. Bobby Gray MD Tube Check 12/04/16 0000 Signed Impressions: Service Date/Time: Sunday, December 04, 2016 17:58 - CONCLUSION: Uncomplicated tube injection as above. the tube is in good position and functions normally. Moises Ramríez MD Tube Change 11/18/16 0000 Signed Impressions: Service Date/Time: Friday, November 18, 2016 17:38 - CONCLUSION: Uncomplicated gastrojejunostomy tube exchange as above. Jonel Jones Jr., MD Abdomen X-Ray 08/31/16 0000 Signed Impressions: Service Date/Time: Wednesday, August 31, 2016 16:36 - CONCLUSION: 1. No acute findings. Mild constipation. Durga Dotson MD Abdomen/Pelvis CT 04/12/16 0000 Signed Impressions: Service Date/Time: Tuesday, April 12, 2016 20:52 - CONCLUSION: 1. 6.4 cm necrotic mass or abscess in the soft tissues posteriorly just below the sacrum associated with some bony destructive change of the lower most sacrum and coccyx with inflammatory changes extending into the ischiorectal fossa and into the presacral retroperitoneum predominantly on the left side. There is associated fairly marked mural thickening of the anal verge and rectum. 2. There is gastrostomy and Arevalo catheter present. Stable abdominal aortic aneurysm. Durga Dotson MD Head Magnetic Resonance Angiography 03/05/16 0000 Signed Impressions: Service Date/Time: Saturday, March 05, 2016 09:26 - CONCLUSION: Persistent high-grade subtotal occlusive stenotic lesions in the distal right vertebral artery and proximal basilar artery with significant improvement in flow and recanalization following initial presentation of thrombosis. Stable interstitial circulation without significant stenosis. 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 There is decreasing restricted diffusion and increasing loss of volume characteristic of a subacute to chronic infarct. No evidence of acute infarct, acute hemorrhage mass or edema. Ernesto Kulkarni MD Head CT 01/16/16 0000 Signed Impressions: Service Date/Time: Saturday, January 16, 2016 10:51 - CONCLUSION: No extensive low density in the brainstem colin more prominent in the right the left extending into the right middle cerebellar peduncle consistent with brainstem infarct nonhemorrhagic acute Wellington West MD Neck Magnetic Resonance Angiography 12/22/15 1445 Signed Impressions: Service Date/Time: Tuesday, December 22, 2015 09:22 - CONCLUSION: Variant origin of the left vertebral artery from the aortic arch. No evidence of carotid stenosis. Glen Zamora MD Head/Brain Mag Res Venography 12/22/15 0000 Signed Impressions: Service Date/Time: Tuesday, December 22, 2015 09:22 - CONCLUSION: Normal MRV. Jonel Jones Jr., MD Objective Remarks Sacral ulcer with appropriate wound care GENERAL: This is a well-nourished, well-developed patient, eyes closed CARDIOVASCULAR: Sinus regular rate without murmurs, gallops, or rubs. RESPIRATORY: Tracheostomy Clear to auscultation. Breath sounds equal bilaterally. No wheezes, rales, or rhonchi. GASTROINTESTINAL: PEG tube Abdomen soft, non-tender, nondistended. Normal active bowel sounds MUSCULOSKELETAL: Extremities without clubbing, cyanosis, or edema. NEURO: Encephalopathic, sleeping Procedures 01/02/16 PEG placement 01/02/16 tracheostomy 07/22/2016 Wide excision of sacral skin wound, biopsy of the cavity lining and debridement. 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 Tracks with his eyes. Continue Keppra for seizure prophylaxis. PT/OT signed off as patient is unable to participate. -Need placement. Difficult. Appreciate case management assistance. 12/02/16: Rehab Medicine (Dr. Pickens) saw pt on 12/04/16, rec's on chart. Chronic respiratory failure -Secondary to CVA. Status post tracheostomy. Continue pulmonary toilet and bronchodilators as needed. Continue trach care, suctioning. Levsin as needed. -Pulmonary currently following . Appreciate assistance. -Pt noted to have oxygenation (per bedside monitor) improvement noted after pt was repositioned and he received a breathing treatment. Oxygen saturation was noted to be 95% on follow-up visit. -12/06/16 pt noted to have Rhonchi for second day, chest x-ray ordered. No acute findings noted. pt without cough and fever. monitor. -12/07/16 Rhonchi not present upon exam. Discussed with Dr. Leal and he advised using Mucomyst should rhonchi recur. Dr. Tayolr with pulmonology continues to follow Atrial fibrillation -Continue rate control with Cardizem and metoprolol. Echocardiogram in November 2015 shows preserved ejection fraction. Coumadin discontinued secondary to bleeding. Rate controlled. Continue aspirin and prophylactic heparin dose. History of non-Hodgkin's lymphoma - Status post brain biopsy on December 13 by neurosurgery. Pathology consistent with acute infarct without evidence of lymphoma. Oncology has signed all Diabetes mellitus, controlled A1c 7 -Hemoglobin A1c is 7. Continue Levemir. Monitor Accu-Cheks and cover with sliding scale insulin. Overall blood sugar continues well controlled. Decubitus ulcer stage IV -Continue wound care, twice-daily dressing changes. Wound care recommendations. Continue pressure relief measures including turning and positioning. Patient's family has declined a diverting colostomy. Previous Wound culture growing Klebsiella. on Augmentin. Status post wide excision of sacral skin and biopsy of the cavity lining with debridement on 07/22/16. Continue scheduled [place] every 8 hours. -Continue to monitor for pain. Gastric ulcer, reflux esophagitis - EGD on 07/30/16 showed gastric ulcers. Appreciate GI recommendations. Continue PPI. H&H stable as of last recheck.. UTI pseudomonas aeruginosa treated with abx -Resolved. - Repeat Ucx 08/28/16 negative. -Pt seen by ID (Dr. Alvarez) on 11/28/16. Constipation: -Having regular bowel movements. -on lactulose. Monitor. -Notes of 11/21/16 indicated pt had diarrhea, he was checked for C. Diff and was negative. Imodium to be used. FEN: Continue Nepro tube feeds with free water flushes. Appreciate dietary assistance. 12/02/16: Per Dr. Leal, IR to be consulted to replace GJ tube. -pt to have his GJ tube replaced later today (12/03/16). Replacement procedure did not occur on 12/03/16 and is being delayed until later today (12/04/16). -GJ tube replaced on 12/04/16. Per IR physician's note, no obstruction found and tube was in the correct position and operating normally. 12/07/16 J tube is clogged, nursing has applied water as well as soda to the line to try and flush the line with no progress at this time. G tube is patent and will use for feeding and medication. May need to consider increased rate of delivery to prevent clogging as well as more frequent flushing should patency of J tube be regained. 12/09 Patient using Gtube - flushed by nurse, continue feedings per dietary recommendations. DVT prophylaxis: SCDs/ subq heparin. Discussed with pt's mother and ex- (at bedside), RN (bedside). Discharge Planning Per CM: pt has no payor source for rehab, declined by multiple facilities. Difficult DC. CM following for DC plan Problem Qualifiers (1) CVA (cerebral vascular accident): (2) DM (diabetes mellitus): Qualified Code: E11.9 - Type 2 diabetes mellitus without complications Nahomy Tatum MD December 09, 2016 15:24
--- NOTE | 2016-12-09 16:50 | HHI.PR ---
Subjective Remarks opens eyes on o2 , o2 SAT 95 ON T PIECE NO DITRESS TRACH. [place] Objective Vital Signs Date Time Temp Pulse Resp B/P Pulse Ox O2 Delivery O2 Flow Rate FiO2 12/09/16 15:39 96.4 72 20 107/70 91 12/09/16 14:00 74 114/71 12/09/16 12:00 96.8 76 20 104/73 98 12/09/16 09:18 98 T-piece 28 12/09/16 08:00 98.3 84 20 102/67 97 12/09/16 04:00 95.2 77 20 121/75 97 12/09/16 00:00 95.8 109 18 133/80 100 12/08/16 21:15 Trach Collar 28 Humidified 12/08/16 20:34 99 T-piece 58 12/08/16 20:34 99 T-piece 28 12/08/16 20:30 95.4 99 18 141/90 100 12/08/16 20:00 95 12/08/16 19:26 98.3 88 127/84 100 I/O 12/08/16 12/08/16 12/08/16 12/09/16 12/09/16 12/09/16 07:00 15:00 23:00 07:00 15:00 23:00 Intake Total 400 ml 200 ml 400 ml 780 ml 0 ml Output Total 1000 ml 1100 ml 600 ml 750 ml Balance -600 ml -900 ml -200 ml 30 ml 0 ml Intake Oral 0 ml TPN/PPN 320 ml Tube Irrigant 60 ml Other 400 ml 200 ml 400 ml 400 ml Output Urine Total 1000 ml 1100 ml 600 ml 750 ml Procedures 01/02/16 PEG placement 01/02/16 tracheostomy 07/22/2016 Wide excision of sacral skin wound, biopsy of the cavity lining and debridement. PEG tube replacement 07/29/16 Objective Remarks GENERAL: SKIN: Warm and dry. HEAD: Atraumatic. Normocephalic. EYES: Pupils equal and round. No scleral icterus. No injection or drainage. ENT: No nasal bleeding or discharge. Mucous membranes pink and moist. NECK: Trachea midline. No JVD. [place]ACH. [place] CARDIOVASCULAR: Regular rate and rhythm. RESPIRATORY: No accessory muscle use. Clear to auscultation. Breath sounds equal bilaterally. GASTROINTESTINAL: Abdomen soft, non-tender, nondistended. Hepatic and splenic margins not palpable. MUSCULOSKELETAL: Extremities without clubbing, cyanosis, or edema. No obvious deformities. NEUROLOGICAL: Awake and alert. No obvious cranial nerve deficits. Motor grossly within normal limits. Five out of 5 muscle strength in the arms and legs. Normal speech. PSYCHIATRIC: Appropriate mood and affect; insight and judgment normal. Assessment and Plan Assessment and Plan impression respiratory failure CVA S/P TRACHEOSTOMY PLAN O2 NEEDED PULM. TOILET Brandon Taylor MD December 09, 2016 16:50
[2016-12-09] MEDS: PARoxetine HCL SUSP 20 MG/10 ML UDC PEG SCH (18:06)
[2016-12-09] MEDS: SODIUM CHLOR 0.9% 1000 ML INJ 1,000 ML IV SCH (21:11)
[2016-12-10] VITALS (10 sets, daily range): BP systolic 116–131; BP diastolic 71–84; PULSE 80–91; RESP 17–21; TEMP 95.8–97.8; O2SAT 93–100
[2016-12-10] MEDS: DILTIAZEM HCL 30 MG TAB PEG SCH ×2 (00:57→13:00)
[2016-12-10] MEDS: FREE WATER TUBE SCH ×6 (04:00→20:00)
[2016-12-10] MEDS: HEPARIN SODIUM - SQ 10,000 UNITS/ML VIAL SQ SCH ×3 (06:09→21:04)
[2016-12-10] MEDS: ACETIC ACID 0.25% SOLN 1000 ML IRR BTL IRRIGATION SCH ×3 (06:10→21:09)
[2016-12-10] MEDS: INSULIN ASPART SUPPLEMENTAL SCALE SQ SCH (06:18)
--- NOTE | 2016-12-10 08:48 | HHI.PR ---
Subjective Remarks opens eyes on o2 , o2 SAT 95 ON T PIECE NO DITRESS TRACH. [place] Objective Vital Signs Date Time Temp Pulse Resp B/P Pulse Ox O2 Delivery O2 Flow Rate FiO2 12/10/16 07:53 97.8 84 20 131/84 98 12/10/16 06:44 95.8 80 17 120/81 95 12/10/16 03:52 98 T-piece 28 12/10/16 00:00 97.2 84 21 121/78 93 12/09/16 20:00 95.9 96 18 127/82 92 12/09/16 17:40 98 T-piece 6.00 28 12/09/16 17:40 98 T-piece 6.00 28 12/09/16 15:39 96.4 72 20 107/70 91 12/09/16 14:00 74 114/71 12/09/16 12:00 96.8 76 20 104/73 98 12/09/16 09:18 98 T-piece 28 I/O 12/09/16 12/09/16 12/09/16 12/10/16 12/10/16 12/10/16 07:00 15:00 23:00 07:00 15:00 23:00 Intake Total 400 ml 780 ml 0 ml Output Total 600 ml 750 ml 450 ml 650 ml Balance -200 ml 30 ml -450 ml -650 ml Intake Oral 0 ml TPN/PPN 320 ml Tube Irrigant 60 ml Other 400 ml 400 ml Output Urine Total 600 ml 750 ml 450 ml 650 ml # Bowel Movements 0 0 Procedures 01/02/16 PEG placement 01/02/16 tracheostomy 07/22/2016 Wide excision of sacral skin wound, biopsy of the cavity lining and debridement. PEG tube replacement 07/29/16 Objective Remarks GENERAL: SKIN: Warm and dry. HEAD: Atraumatic. Normocephalic. EYES: Pupils equal and round. No scleral icterus. No injection or drainage. ENT: No nasal bleeding or discharge. Mucous membranes pink and moist. NECK: Trachea midline. No JVD. TRACH. [place] CARDIOVASCULAR: Regular rate and rhythm. RESPIRATORY: No accessory muscle use. Clear to auscultation. Breath sounds equal bilaterally. GASTROINTESTINAL: Abdomen soft, non-tender, nondistended. Hepatic and splenic margins not palpable. MUSCULOSKELETAL: Extremities without clubbing, cyanosis, or edema. No obvious deformities. NEUROLOGICAL: Awake and alert. No obvious cranial nerve deficits. Motor grossly within normal limits. Five out of 5 muscle strength in the arms and legs. Normal speech. PSYCHIATRIC: Appropriate mood and affect; insight and judgment normal. Assessment and Plan Assessment and Plan impression respiratory failure CVA S/P TRACHEOSTOMY PLAN O2 NEEDED PULM. TOILET Brandon Taylor MD December 10, 2016 08:48
[2016-12-10] MEDS: METOPROLOL TARTRATE 50 MG TAB PO SCH ×2 (09:00→21:04)
[2016-12-10] MEDS: KETOCONAZOLE 2% CREAM 15 GM TOPICAL SCH ×2 (09:00→21:00)
[2016-12-10] MEDS: PANTOPRAZOLE SODIUM 40 MG VIAL IV PUSH SCH ×2 (09:08→21:04)
[2016-12-10] MEDS: levETIRAcetam 500 MG/5 ML UDC TUBE SCH ×2 (09:08→21:03)
[2016-12-10] MEDS: ASPIRIN 325 MG TAB TUBE SCH (09:08)
[2016-12-10] MEDS: POTASSIUM CHLORIDE 25 MEQ EFFERVESCENT TAB TUBE SCH (09:08)
[2016-12-10] MEDS: BACITRACIN TOP OINT 15 GM TUBE TOP SCH ×2 (09:09→21:06)
[2016-12-10] MEDS: NYSTATIN 100,000 U/GM PWD 15 GM BTL TOPICAL SCH ×2 (09:09→21:07)
[2016-12-10] MEDS: ARTIFICIAL TEARS OPTH SOLN 15 ML BTL EACH EYE SCH ×2 (09:09→21:05)
[2016-12-10] MEDS: SODIUM CHLORIDE 0.65% NASAL SPRAY 45 ML BTL NASAL SCH ×2 (09:10→21:05)
--- NOTE | 2016-12-10 14:08 | HHI.PR ---
Subjective Remarks In bed, eyes open appears in nad. Family at bedside. Events overnight. He was suctioning very well in the morning. No secretions. Vital signs are stable at this time. Objective Vitals Vital Signs Date Time Temp Pulse Resp B/P Pulse Ox O2 Delivery O2 Flow Rate FiO2 12/10/16 07:53 97.8 84 20 131/84 98 12/10/16 06:44 95.8 80 17 120/81 95 12/10/16 03:52 98 T-piece 28 12/10/16 00:00 97.2 84 21 121/78 93 12/09/16 20:00 95.9 96 18 127/82 92 12/09/16 17:40 98 T-piece 6.00 28 12/09/16 17:40 98 T-piece 6.00 28 12/09/16 15:39 96.4 72 20 107/70 91 I/O 12/09/16 12/09/16 12/09/16 12/10/16 12/10/16 12/10/16 06:59 14:59 22:59 06:59 14:59 22:59 Intake Total 400 ml 780 ml 0 ml 1972 ml Output Total 600 ml 750 ml 450 ml 1500 ml Balance -200 ml 30 ml -450 ml 472 ml Intake Oral 0 ml IV Total 334 ml Tube Feeding 1238 ml TPN/PPN 320 ml Tube Irrigant 60 ml Other 400 ml 400 ml 400 ml Output Urine Total 600 ml 750 ml 450 ml 1500 ml # Bowel Movements 0 0 Imaging Last Impressions Chest X-Ray 12/06/16 0000 Signed Impressions: Service Date/Time: Tuesday, December 06, 2016 11:07 - CONCLUSION: 1. Hypoinflation with minimal bibasilar atelectatic changes. 2. No confluent infiltrate or effusion. Bobby Gray MD Tube Check 12/04/16 0000 Signed Impressions: Service Date/Time: Sunday, December 04, 2016 17:58 - CONCLUSION: Uncomplicated tube injection as above. the tube is in good position and functions normally. Moises Ramírez MD Tube Change 11/18/16 0000 Signed Impressions: Service Date/Time: Friday, November 18, 2016 17:38 - CONCLUSION: Uncomplicated gastrojejunostomy tube exchange as above. Jonel Jones Jr., MD Abdomen X-Ray 2/11/17 0000 Signed Impressions: Service Date/Time: Wednesday, August 31, 2016 16:36 - CONCLUSION: 1. No acute findings. Mild constipation. Durga Dotson MD Abdomen/Pelvis CT 04/12/16 0000 Signed Impressions: Service Date/Time: Tuesday, April 12, 2016 20:52 - CONCLUSION: 1. 6.4 cm necrotic mass or abscess in the soft tissues posteriorly just below the sacrum associated with some bony destructive change of the lower most sacrum and coccyx with inflammatory changes extending into the ischiorectal fossa and into the presacral retroperitoneum predominantly on the left side. There is associated fairly marked mural thickening of the anal verge and rectum. 2. There is gastrostomy and Arevalo catheter present. Stable abdominal aortic aneurysm. Durga Dotson MD Head Magnetic Resonance Angiography 03/05/16 0000 Signed Impressions: Service Date/Time: Saturday, March 05, 2016 09:26 - CONCLUSION: Persistent high-grade subtotal occlusive stenotic lesions in the distal right vertebral artery and proximal basilar artery with significant improvement in flow and recanalization following initial presentation of thrombosis. Stable interstitial circulation without significant stenosis. 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 There is decreasing restricted diffusion and increasing loss of volume characteristic of a subacute to chronic infarct. No evidence of acute infarct, acute hemorrhage mass or edema. Ernesto Kulkarni MD Head CT 01/16/16 0000 Signed Impressions: Service Date/Time: Saturday, January 16, 2016 10:51 - CONCLUSION: No extensive low density in the brainstem colin more prominent in the right the left extending into the right middle cerebellar peduncle consistent with brainstem infarct nonhemorrhagic acute Wellington West MD Neck Magnetic Resonance Angiography 12/22/15 1445 Signed Impressions: Service Date/Time: Tuesday, December 22, 2015 09:22 - CONCLUSION: Variant origin of the left vertebral artery from the aortic arch. No evidence of carotid stenosis. Glen Zamora MD Head/Brain Mag Res Venography 12/22/15 0000 Signed Impressions: Service Date/Time: Tuesday, December 22, 2015 09:22 - CONCLUSION: Normal MRV. Jonel Jones Jr., MD Objective Remarks Sacral ulcer with appropriate wound care GENERAL: This is a well-nourished, well-developed patient, eyes closed CARDIOVASCULAR: Sinus regular rate without murmurs, gallops, or rubs. RESPIRATORY: Tracheostomy Clear to auscultation. Breath sounds equal bilaterally. No wheezes, rales, or rhonchi. GASTROINTESTINAL: PEG tube Abdomen soft, non-tender, nondistended. Normal active bowel sounds MUSCULOSKELETAL: Extremities without clubbing, cyanosis, or edema. NEURO: Encephalopathic, sleeping Procedures 01/02/16 PEG placement 01/02/16 tracheostomy 07/22/2016 Wide excision of sacral skin wound, biopsy of the cavity lining and debridement. 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 Tracks with his eyes. Continue Keppra for seizure prophylaxis. PT/OT signed off as patient is unable to participate. -Need placement. Difficult. Appreciate case management assistance. 12/02/16: Rehab Medicine (Dr. Pickens) saw pt on 12/04/16, rec's on chart. Chronic respiratory failure -Secondary to CVA. Status post tracheostomy. Continue pulmonary toilet and bronchodilators as needed. Continue trach care, suctioning. Levsin as needed. -Pulmonary currently following . Appreciate assistance. -Pt noted to have oxygenation (per bedside monitor) improvement noted after pt was repositioned and he received a breathing treatment. Oxygen saturation was noted to be 95% on follow-up visit. -12/06/16 pt noted to have Rhonchi for second day, chest x-ray ordered. No acute findings noted. pt without cough and fever. monitor. -12/07/16 Rhonchi not present upon exam. Discussed with Dr. Leal and he advised using Mucomyst should rhonchi recur. Dr. Taylor with pulmonology continues to follow Atrial fibrillation -Continue rate control with Cardizem and metoprolol. Echocardiogram in November 2015 shows preserved ejection fraction. Coumadin discontinued secondary to bleeding. Rate controlled. Continue aspirin and prophylactic heparin dose. History of non-Hodgkin's lymphoma - Status post brain biopsy on December 13 by neurosurgery. Pathology consistent with acute infarct without evidence of lymphoma. Oncology has signed all Diabetes mellitus, controlled A1c 7 -Hemoglobin A1c is 7. Continue Levemir. Monitor Accu-Cheks and cover with sliding scale insulin. Overall blood sugar continues well controlled. Decubitus ulcer stage IV -Continue wound care, twice-daily dressing changes. Wound care recommendations. Continue pressure relief measures including turning and positioning. Patient's family has declined a diverting colostomy. Previous Wound culture growing Klebsiella. on Augmentin. Status post wide excision of sacral skin and biopsy of the cavity lining with debridement on 07/22/16. Continue scheduled [place] every 8 hours. -Continue to monitor for pain. Gastric ulcer, reflux esophagitis - EGD on 07/30/16 showed gastric ulcers. Appreciate GI recommendations. Continue PPI. H&H stable as of last recheck.. UTI pseudomonas aeruginosa treated with abx -Resolved. - Repeat Ucx 08/28/16 negative. -Pt seen by ID (Dr. Alvarez) on 11/28/16. Constipation: -Having regular bowel movements. -on lactulose. Monitor. -Notes of 11/21/16 indicated pt had diarrhea, he was checked for C. Diff and was negative. Imodium to be used. FEN: Continue Nepro tube feeds with free water flushes. Appreciate dietary assistance. 12/02/16: Per SUSAN Huizar to be consulted to replace GJ tube. -pt to have his GJ tube replaced later today (12/03/16). Replacement procedure did not occur on 12/03/16 and is being delayed until later today (12/04/16). -GJ tube replaced on 12/04/16. Per IR physician's note, no obstruction found and tube was in the correct position and operating normally. 12/07/16 J tube is clogged, nursing has applied water as well as soda to the line to try and flush the line with no progress at this time. G tube is patent and will use for feeding and medication. May need to consider increased rate of delivery to prevent clogging as well as more frequent flushing should patency of J tube be regained. 12/09 Patient using Gtube - flushed by nurse, continue feedings per dietary recommendations. DVT prophylaxis: SCDs/ subq heparin. Discussed with pt's mother and ex- (at bedside), RN (bedside). Discharge Planning Per CM: pt has no payor source for rehab, declined by multiple facilities. Difficult DC. CM following for DC plan Problem Qualifiers (1) CVA (cerebral vascular accident): (2) DM (diabetes mellitus): Qualified Code: E11.9 - Type 2 diabetes mellitus without complications Nahomy Tatum MD December 10, 2016 14:08
[2016-12-10] MEDS: MAGNESIUM HYDROXIDE SUSP 30 ML CUP PO PRN (14:32)
[2016-12-10] MEDS: PARoxetine HCL SUSP 20 MG/10 ML UDC PEG SCH (18:44)
[2016-12-10] MEDS: SODIUM CHLOR 0.9% 1000 ML INJ 1,000 ML IV SCH (19:45)
[2016-12-11] VITALS (10 sets, daily range): BP systolic 105–130; BP diastolic 67–87; PULSE 76–97; RESP 18–28; TEMP 95–97.2; O2SAT 94–98
[2016-12-11] MEDS: DILTIAZEM HCL 30 MG TAB PEG SCH ×2 (01:18→13:41)
[2016-12-11] MEDS: FREE WATER TUBE SCH ×7 (04:00→23:18)
[2016-12-11] MEDS: HEPARIN SODIUM - SQ 10,000 UNITS/ML VIAL SQ SCH ×3 (05:18→23:18)
[2016-12-11] MEDS: ACETIC ACID 0.25% SOLN 1000 ML IRR BTL IRRIGATION SCH ×3 (05:20→23:18)
[2016-12-11] MEDS: INSULIN ASPART SUPPLEMENTAL SCALE SQ SCH (06:16)
[2016-12-11] MEDS: KETOCONAZOLE 2% CREAM 15 GM TOPICAL SCH ×2 (09:00→21:00)
[2016-12-11] MEDS: PANTOPRAZOLE SODIUM 40 MG VIAL IV PUSH SCH ×2 (09:31→23:18)
[2016-12-11] MEDS: levETIRAcetam 500 MG/5 ML UDC TUBE SCH ×2 (09:31→21:22)
[2016-12-11] MEDS: POTASSIUM CHLORIDE 25 MEQ EFFERVESCENT TAB TUBE SCH (09:31)
[2016-12-11] MEDS: METOPROLOL TARTRATE 50 MG TAB PO SCH ×2 (09:31→21:22)
[2016-12-11] MEDS: ASPIRIN 325 MG TAB TUBE SCH (09:31)
[2016-12-11] MEDS: SODIUM CHLORIDE 0.65% NASAL SPRAY 45 ML BTL NASAL SCH ×2 (09:34→21:29)
[2016-12-11] MEDS: NYSTATIN 100,000 U/GM PWD 15 GM BTL TOPICAL SCH ×3 (09:34→21:30)
[2016-12-11] MEDS: ARTIFICIAL TEARS OPTH SOLN 15 ML BTL EACH EYE SCH ×2 (09:34→21:29)
[2016-12-11] MEDS: BACITRACIN TOP OINT 15 GM TUBE TOP SCH ×2 (09:34→21:29)
[2016-12-11] MEDS: SODIUM CHLOR 0.9% 1000 ML INJ 1,000 ML IV SCH ×2 (12:15→19:45)
--- NOTE | 2016-12-11 12:22 | HHI.PR ---
Subjective Remarks Appears in nad. Family at bedside. Suctioned by the nurse. Sattign well. No events overnight Objective Vitals Vital Signs Date Time Temp Pulse Resp B/P Pulse Ox O2 Delivery O2 Flow Rate FiO2 12/11/16 09:57 95 T-piece 6.00 28 12/11/16 07:59 96.7 87 20 116/67 98 12/11/16 06:03 95.8 84 22 105/69 96 12/11/16 00:29 96.2 76 18 113/73 98 12/10/16 22:09 98 T-piece 6.00 28 12/10/16 22:09 98 T-piece 6.00 28 12/10/16 20:00 96.6 91 21 117/76 98 12/10/16 19:15 85 12/10/16 16:01 96.2 86 20 116/71 98 I/O 12/10/16 12/10/16 12/10/16 12/11/16 12/11/16 12/11/16 07:00 15:00 23:00 07:00 15:00 23:00 Intake Total 1972 ml 200 ml Output Total 1500 ml 1000 ml 1000 ml Balance 472 ml -800 ml -1000 ml IV Total 334 ml Tube Feeding 1238 ml Other 400 ml 200 ml Output Urine Total 1500 ml 1000 ml 1000 ml # Bowel Movements 0 1 0 Objective Remarks Sacral ulcer with appropriate wound care GENERAL: This is a well-nourished, well-developed patient, eyes closed CARDIOVASCULAR: Sinus regular rate without murmurs, gallops, or rubs. RESPIRATORY: Tracheostomy Clear to auscultation. Breath sounds equal bilaterally. No wheezes, rales, or rhonchi. GASTROINTESTINAL: PEG tube Abdomen soft, non-tender, nondistended. Normal active bowel sounds MUSCULOSKELETAL: Extremities without clubbing, cyanosis, or edema. NEURO: Encephalopathic, sleeping Procedures 01/02/16 PEG placement 01/02/16 tracheostomy 07/22/2016 Wide excision of sacral skin wound, biopsy of the cavity lining and debridement. 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 Tracks with his eyes. Continue Keppra for seizure prophylaxis. PT/OT signed off as patient is unable to participate. -Need placement. Difficult. Appreciate case management assistance. 12/02/16: Rehab Medicine (Dr. Pickens) saw pt on 12/04/16, rec's on chart. Chronic respiratory failure -Secondary to CVA. Status post tracheostomy. Continue pulmonary toilet and bronchodilators as needed. Continue trach care, suctioning. Levsin as needed. -Pulmonary currently following . Appreciate assistance. -Pt noted to have oxygenation (per bedside monitor) improvement noted after pt was repositioned and he received a breathing treatment. Oxygen saturation was noted to be 95% on follow-up visit. -12/06/16 pt noted to have Rhonchi for second day, chest x-ray ordered. No acute findings noted. pt without cough and fever. monitor. -12/07/16 Rhonchi not present upon exam. Discussed with Dr. Leal and he advised using Mucomyst should rhonchi recur. Dr. Taylor with pulmonology continues to follow Atrial fibrillation -Continue rate control with Cardizem and metoprolol. Echocardiogram in November 2015 shows preserved ejection fraction. Coumadin discontinued secondary to bleeding. Rate controlled. Continue aspirin and prophylactic heparin dose. History of non-Hodgkin's lymphoma - Status post brain biopsy on December 13 by neurosurgery. Pathology consistent with acute infarct without evidence of lymphoma. Oncology has signed all Diabetes mellitus, controlled A1c 7 -Hemoglobin A1c is 7. Continue Levemir. Monitor Accu-Cheks and cover with sliding scale insulin. Overall blood sugar continues well controlled. Decubitus ulcer stage IV -Continue wound care, twice-daily dressing changes. Wound care recommendations. Continue pressure relief measures including turning and positioning. Patient's family has declined a diverting colostomy. Previous Wound culture growing Klebsiella. on Augmentin. Status post wide excision of sacral skin and biopsy of the cavity lining with debridement on 07/22/16. Continue scheduled [place] every 8 hours. -Continue to monitor for pain. Gastric ulcer, reflux esophagitis - EGD on 07/30/16 showed gastric ulcers. Appreciate GI recommendations. Continue PPI. H&H stable as of last recheck.. UTI pseudomonas aeruginosa treated with abx -Resolved. - Repeat Ucx 08/28/16 negative. -Pt seen by ID (Dr. Alvarez) on 11/28/16. Constipation: -Having regular bowel movements. -on lactulose. Monitor. -Notes of 11/21/16 indicated pt had diarrhea, he was checked for C. Diff and was negative. Imodium to be used. FEN: Continue Nepro tube feeds with free water flushes. Appreciate dietary assistance. 12/02/16: Per Dr. Leal, IR to be consulted to replace GJ tube. -pt to have his GJ tube replaced later today (12/03/16). Replacement procedure did not occur on 12/03/16 and is being delayed until later today (12/04/16). -GJ tube replaced on 12/04/16. Per IR physician's note, no obstruction found and tube was in the correct position and operating normally. 12/07/16 J tube is clogged, nursing has applied water as well as soda to the line to try and flush the line with no progress at this time. G tube is patent and will use for feeding and medication. May need to consider increased rate of delivery to prevent clogging as well as more frequent flushing should patency of J tube be regained. 12/09 Patient using Gtube - flushed by nurse, continue feedings per dietary recommendations. DVT prophylaxis: SCDs/ subq heparin. Discussed with pt's mother and ex- (at bedside), RN (bedside). Discharge Planning Per CM: pt has no payor source for rehab, declined by multiple facilities. Difficult DC. CM following for DC plan Problem Qualifiers (1) CVA (cerebral vascular accident): (2) DM (diabetes mellitus): Qualified Code: E11.9 - Type 2 diabetes mellitus without complications Nahomy Tatum MD December 11, 2016 12:22
--- NOTE | 2016-12-11 16:37 | HHI.PR ---
Subjective Remarks opens eyes on o2 , o2 SAT 95 ON T PIECE NO DITRESS TRACH. [place] Objective Vital Signs Date Time Temp Pulse Resp B/P Pulse Ox O2 Delivery O2 Flow Rate FiO2 12/11/16 12:31 89 12/11/16 12:00 96.8 97 18 120/87 97 12/11/16 09:57 95 T-piece 6.00 28 12/11/16 07:59 96.7 87 20 116/67 98 12/11/16 06:03 95.8 84 22 105/69 96 12/11/16 00:29 96.2 76 18 113/73 98 12/10/16 22:09 98 T-piece 6.00 28 12/10/16 22:09 98 T-piece 6.00 28 12/10/16 20:00 96.6 91 21 117/76 98 12/10/16 19:15 85 I/O 12/10/16 12/10/16 12/10/16 12/11/16 12/11/16 12/11/16 07:00 15:00 23:00 07:00 15:00 23:00 Intake Total 1972 ml 200 ml Output Total 1500 ml 1000 ml 1000 ml Balance 472 ml -800 ml -1000 ml IV Total 334 ml Tube Feeding 1238 ml Other 400 ml 200 ml Output Urine Total 1500 ml 1000 ml 1000 ml # Bowel Movements 0 1 0 Procedures 01/02/16 PEG placement 01/02/16 tracheostomy 07/22/2016 Wide excision of sacral skin wound, biopsy of the cavity lining and debridement. PEG tube replacement 07/29/16 Objective Remarks GENERAL: SKIN: Warm and dry. HEAD: Atraumatic. Normocephalic. EYES: Pupils equal and round. No scleral icterus. No injection or drainage. ENT: No nasal bleeding or discharge. Mucous membranes pink and moist. NECK: Trachea midline. No JVD. TRACH. [place] CARDIOVASCULAR: Regular rate and rhythm. RESPIRATORY: No accessory muscle use. Clear to auscultation. Breath sounds equal bilaterally. GASTROINTESTINAL: Abdomen soft, non-tender, nondistended. Hepatic and splenic margins not palpable. MUSCULOSKELETAL: Extremities without clubbing, cyanosis, or edema. No obvious deformities. NEUROLOGICAL: Awake and alert. No obvious cranial nerve deficits. Motor grossly within normal limits. Five out of 5 muscle strength in the arms and legs. Normal speech. PSYCHIATRIC: Appropriate mood and affect; insight and judgment normal. Assessment and Plan Assessment and Plan impression respiratory failure CVA S/P TRACHEOSTOMY PLAN O2 NEEDED PULM. TOILET Brandon Taylor MD December 11, 2016 16:37
--- NOTE | 2016-12-11 16:53 | HHI.PR ---
Subjective Subjective Comments Patient resting comfortably in bed. Family at bedside. Allergies: Coded Allergies: *MDRO Multi-Drug Resistant Organism (Verified Adverse Reaction, Unknown, ) MRSA (sputum) - 03/08/16, 04/03/2016 MDR-Pseudomonas Aeruginosa (urine)-08/25/16 Review of Systems All other ROS: Unable to obtain Exam I&O / VS 12/10/16 12/10/16 12/11/16 14:59 22:59 06:59 Intake Total 1972 ml 200 ml Output Total 1500 ml 1000 ml 1000 ml Balance 472 ml -800 ml -1000 ml IV Total 334 ml Tube Feeding 1238 ml Other 400 ml 200 ml Output Urine Total 1500 ml 1000 ml 1000 ml # Bowel Movements 0 1 0 Vital Signs Date Time Temp Pulse Resp B/P Pulse Ox O2 Delivery O2 Flow Rate FiO2 12/11/16 12:31 89 12/11/16 12:00 96.8 97 18 120/87 97 12/11/16 09:57 95 T-piece 6.00 28 12/11/16 07:59 96.7 87 20 116/67 98 12/11/16 06:03 95.8 84 22 105/69 96 12/11/16 00:29 96.2 76 18 113/73 98 12/10/16 22:09 98 T-piece 6.00 28 12/10/16 22:09 98 T-piece 6.00 28 12/10/16 20:00 96.6 91 21 117/76 98 12/10/16 19:15 85 General: No acute distress Skin: Other (Sacral wound with dressing in place with serosanguinous drainage) Musculoskeletal: ROM (Within functional limits; tone is decreased in the upper and lower extremities), Other (SCDs in place) Psychiatric: Cooperative Orientation: oriented to Self Neurologic: Pupils (PERRLA), EOM (Tracks right and left) Motor: Right Upper Extremity (Possible trace right finger flexion) Clonus: Negative Assessment and Plan Diagnosis: (1) CVA (cerebral vascular accident) Laterality of affected vessel: bilateral Assessment 1. Bilateral occipital/brainstem CVA with quadriplegia, dysphagia S/P PEG and limited ability to communicate 2. Sacral wound grade 4 3. Atrial fibrillation 4. HTN 5. Non-Hodgkin lymphoma stage 3 S/P chemotherapy 6. DM Plan 1. PT and OT providing ROM and positioning. Total assist for long sitting and dependent for ADLs Patient is on specialty bed and wound care is following. 2. ST addressing communication yes no responses are improving 3. Turn and reposition q 2 hours. 4. Will need skilled placement and case management is referring but difficulty finding accepting facility due to level of care. Case management is continuing referral process and working with family. Rehabilitation plan of care discussed with patient's family and questions answered. 5. Will follow while hospitalized and at discharge as appropriate. . Marla Pickens MD December 11, 2016 16:53
[2016-12-11] MEDS: PARoxetine HCL SUSP 20 MG/10 ML UDC PEG SCH (18:16)
[2016-12-11] MEDS: RESP: LEVALBUTEROL HYDROCHLORIDE 0.63 MG/3 ML NEB (PRN) NEB (21:45)
[2016-12-12] VITALS (7 sets, daily range): BP systolic 95–127; BP diastolic 64–82; PULSE 79–93; RESP 16–24; TEMP 96–97.8; O2SAT 95–99
[2016-12-12] MEDS: DILTIAZEM HCL 30 MG TAB PEG SCH ×2 (02:13→13:00)
[2016-12-12] MEDS: FREE WATER TUBE SCH ×5 (04:00→20:57)
[2016-12-12] MEDS: ACETIC ACID 0.25% SOLN 1000 ML IRR BTL IRRIGATION SCH ×3 (05:20→20:57)
[2016-12-12] MEDS: HEPARIN SODIUM - SQ 10,000 UNITS/ML VIAL SQ SCH ×3 (05:20→20:57)
[2016-12-12] MEDS: ACETAMINOPHEN/HYDROcodone 325 MG/5 MG TAB PO PRN (05:20)
[2016-12-12] MEDS: INSULIN ASPART SUPPLEMENTAL SCALE SQ SCH (06:48)
[2016-12-12] MEDS: POTASSIUM CHLORIDE 25 MEQ EFFERVESCENT TAB TUBE SCH (08:53)
[2016-12-12] MEDS: ASPIRIN 325 MG TAB TUBE SCH (08:54)
[2016-12-12] MEDS: METOPROLOL TARTRATE 50 MG TAB PO SCH ×2 (08:54→20:56)
[2016-12-12] MEDS: BACITRACIN TOP OINT 15 GM TUBE TOP SCH ×2 (08:54→20:57)
[2016-12-12] MEDS: SODIUM CHLORIDE 0.65% NASAL SPRAY 45 ML BTL NASAL SCH ×2 (08:55→20:58)
[2016-12-12] MEDS: ARTIFICIAL TEARS OPTH SOLN 15 ML BTL EACH EYE SCH ×2 (08:55→20:58)
[2016-12-12] MEDS: KETOCONAZOLE 2% CREAM 15 GM TOPICAL SCH ×2 (09:00→20:57)
[2016-12-12] MEDS: levETIRAcetam 500 MG/5 ML UDC TUBE SCH ×2 (09:04→20:57)
[2016-12-12] MEDS: PANTOPRAZOLE SODIUM 40 MG VIAL IV PUSH SCH ×2 (11:10→20:57)
--- NOTE | 2016-12-12 14:41 | HHI.PR ---
Subjective Remarks No acute events overnight. Eyes open. Objective Vitals Vital Signs Date Time Temp Pulse Resp B/P Pulse Ox O2 Delivery O2 Flow Rate FiO2 12/12/16 12:14 96.0 82 20 95/64 96 12/12/16 08:14 96.4 87 20 113/78 95 12/12/16 04:00 97.8 91 22 107/72 99 12/12/16 00:00 97.5 79 24 111/68 98 12/11/16 21:48 97 T-piece 6.00 28 12/11/16 20:00 95.0 85 28 130/ 94 12/11/16 19:15 85 12/11/16 16:00 97.2 84 19 118/71 98 I/O 12/11/16 12/11/16 12/11/16 12/12/16 12/12/16 12/12/16 07:00 15:00 23:00 07:00 15:00 23:00 Intake Total 1512 ml 520 ml Output Total 1000 ml 1600 ml 500 ml 750 ml 1000 ml Balance -1000 ml -88 ml 20 ml -750 ml -1000 ml IV Total 564 ml Tube Feeding 748 ml Tube Irrigant 120 ml Other 200 ml 400 ml Output Urine Total 1000 ml 1600 ml 500 ml 750 ml 1000 ml # Bowel Movements 0 1 1 Objective Remarks GENERAL: Nonverbal and in no acute distress. Trach in place SKIN: Warm and dry. CARDIOVASCULAR: Regular rate and rhythm without murmurs, gallops, or rubs. RESPIRATORY: Diffuse coarse breath sounds. Breath sounds equal and clear to auscultation anteriorly GASTROINTESTINAL: Abdomen soft, non-tender, nondistended. PEG tube in place MUSCULOSKELETAL: No cyanosis, or edema. Neuro: Non verbal, non interactive. Eyes open. Procedures 01/02/16 PEG placement 01/02/16 tracheostomy 07/22/2016 Wide excision of sacral skin wound, biopsy of the cavity lining and debridement. 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 May possibly track with his eyes. Continue Keppra for seizure prophylaxis. PT/OT signed off as patient is unable to participate. -Need placement. Difficult. Appreciate case management assistance. 12/02/16: Rehab Medicine (Dr. Pickens) following Chronic respiratory failure -Secondary to CVA. Status post tracheostomy. Continue pulmonary toilet and bronchodilators as needed. Continue trach care, suctioning. Levsin as needed. -Pulmonary currently following . Appreciate assistance. - Dr. Taylor with pulmonology continues to follow Atrial fibrillation -Continue rate control with Cardizem and metoprolol. Echocardiogram in November 2015 shows preserved ejection fraction. Coumadin discontinued secondary to bleeding. Rate controlled. Continue aspirin and prophylactic heparin dose. History of non-Hodgkin's lymphoma - Status post brain biopsy on December 13 by neurosurgery. Pathology consistent with acute infarct without evidence of lymphoma. Oncology has signed all Diabetes mellitus, controlled A1c 7 -Hemoglobin A1c is 7. Continue Levemir. Monitor Accu-Cheks and cover with sliding scale insulin. Overall blood sugar continues well controlled. Decubitus ulcer stage IV -Continue wound care, twice-daily dressing changes. Wound care recommendations. Continue pressure relief measures including turning and positioning. Patient's family has declined a diverting colostomy. Previous Wound culture growing Klebsiella. on Augmentin. Status post wide excision of sacral skin and biopsy of the cavity lining with debridement on 07/22/16. Continue scheduled [place] every 8 hours. -Continue to monitor for pain. Gastric ulcer, reflux esophagitis - EGD on 07/30/16 showed gastric ulcers. Appreciate GI recommendations. Continue PPI. H&H stable as of last recheck.. UTI pseudomonas aeruginosa treated with abx -Resolved. - Repeat Ucx 08/28/16 negative. -Pt seen by ID (Dr. Alvarez) on 11/28/16. Constipation: -Having regular bowel movements. -on lactulose. Monitor. -Notes of 11/21/16 indicated pt had diarrhea, he was checked for C. Diff and was negative. Imodium to be used. FEN: Continue Nepro tube feeds with free water flushes. Appreciate dietary assistance. 12/02/16: Per Dr. Leal, IR to be consulted to replace GJ tube. -pt to have his GJ tube replaced later today (12/03/16). Replacement procedure did not occur on 12/03/16 and is being delayed until later today (12/04/16). -GJ tube replaced on 12/04/16. 12/09 Patient using Gtube - flushed by nurse, continue feedings per dietary recommendations. DVT prophylaxis: SCDs/ subq heparin. Discussed with pt's mother at bedside Problem Qualifiers (1) CVA (cerebral vascular accident): (2) DM (diabetes mellitus): Qualified Code: E11.9 - Type 2 diabetes mellitus without complications Jw Bah MD December 12, 2016 14:41 Jw Bah MD December 12, 2016 14:41
--- NOTE | 2016-12-12 16:02 | HHI.PR ---
Subjective Remarks opens eyes on o2 , o2 SAT 95 ON T PIECE NO DITRESS TRACH. [place] Objective Vital Signs Date Time Temp Pulse Resp B/P Pulse Ox O2 Delivery O2 Flow Rate FiO2 12/12/16 12:14 96.0 82 20 95/64 96 12/12/16 08:14 96.4 87 20 113/78 95 12/12/16 04:00 97.8 91 22 107/72 99 12/12/16 00:00 97.5 79 24 111/68 98 12/11/16 21:48 97 T-piece 6.00 28 12/11/16 20:00 95.0 85 28 130/ 94 12/11/16 19:15 85 I/O 12/11/16 12/11/16 12/11/16 12/12/16 12/12/16 12/12/16 07:00 15:00 23:00 07:00 15:00 23:00 Intake Total 1512 ml 520 ml Output Total 1000 ml 1600 ml 500 ml 750 ml 1000 ml Balance -1000 ml -88 ml 20 ml -750 ml -1000 ml IV Total 564 ml Tube Feeding 748 ml Tube Irrigant 120 ml Other 200 ml 400 ml Output Urine Total 1000 ml 1600 ml 500 ml 750 ml 1000 ml # Bowel Movements 0 1 1 Procedures 01/02/16 PEG placement 01/02/16 tracheostomy 07/22/2016 Wide excision of sacral skin wound, biopsy of the cavity lining and debridement. PEG tube replacement 07/29/16 Objective Remarks GENERAL: SKIN: Warm and dry. HEAD: Atraumatic. Normocephalic. EYES: Pupils equal and round. No scleral icterus. No injection or drainage. ENT: No nasal bleeding or discharge. Mucous membranes pink and moist. NECK: Trachea midline. No JVD. TRACH. [place] CARDIOVASCULAR: Regular rate and rhythm. RESPIRATORY: No accessory muscle use. Clear to auscultation. Breath sounds equal bilaterally. GASTROINTESTINAL: Abdomen soft, non-tender, nondistended. Hepatic and splenic margins not palpable. MUSCULOSKELETAL: Extremities without clubbing, cyanosis, or edema. No obvious deformities. NEUROLOGICAL: Awake and alert. No obvious cranial nerve deficits. Motor grossly within normal limits. Five out of 5 muscle strength in the arms and legs. Normal speech. PSYCHIATRIC: Appropriate mood and affect; insight and judgment normal. Assessment and Plan Assessment and Plan impression respiratory failure CVA S/P TRACHEOSTOMY PLAN O2 NEEDED PULM. TOILET Brandon Taylor MD December 12, 2016 16:02
[2016-12-12] MEDS: SODIUM CHLOR 0.9% 1000 ML INJ 1,000 ML IV SCH (18:19)
[2016-12-12] MEDS: PARoxetine HCL SUSP 20 MG/10 ML UDC PEG SCH (19:00)
[2016-12-12] MEDS: NYSTATIN 100,000 U/GM PWD 15 GM BTL TOPICAL SCH (20:58)
[2016-12-13] VITALS (11 sets, daily range): BP systolic 105–120; BP diastolic 68–79; PULSE 73–87; RESP 18–20; TEMP 95.7–98.6; O2SAT 95–100
[2016-12-13] MEDS: FREE WATER TUBE SCH ×7 (00:35→23:53)
[2016-12-13] MEDS: DILTIAZEM HCL 30 MG TAB PEG SCH ×3 (00:36→23:53)
[2016-12-13] MEDS: INSULIN ASPART SUPPLEMENTAL SCALE SQ SCH (06:00)
[2016-12-13] MEDS: HEPARIN SODIUM - SQ 10,000 UNITS/ML VIAL SQ SCH ×3 (06:24→20:28)
[2016-12-13] MEDS: ACETIC ACID 0.25% SOLN 1000 ML IRR BTL IRRIGATION SCH ×2 (06:26→23:59)
[2016-12-13] MEDS: PANTOPRAZOLE SODIUM 40 MG VIAL IV PUSH SCH ×2 (08:54→20:28)
[2016-12-13] MEDS: ASPIRIN 325 MG TAB TUBE SCH (08:54)
[2016-12-13] MEDS: POTASSIUM CHLORIDE 25 MEQ EFFERVESCENT TAB TUBE SCH (08:55)
[2016-12-13] MEDS: levETIRAcetam 500 MG/5 ML UDC TUBE SCH ×2 (08:55→20:28)
[2016-12-13] MEDS: METOPROLOL TARTRATE 50 MG TAB PO SCH ×2 (08:55→20:28)
[2016-12-13] MEDS: NYSTATIN 100,000 U/GM PWD 15 GM BTL TOPICAL SCH ×2 (09:00→20:28)
--- NOTE | 2016-12-13 09:13 | HHI.PR ---
Subjective Remarks opens eyes on o2 , o2 SAT 95 ON T PIECE NO DITRESS TRACH. [place] Objective Vital Signs Date Time Temp Pulse Resp B/P Pulse Ox O2 Delivery O2 Flow Rate FiO2 12/13/16 08:34 84 12/13/16 08:25 98.1 85 20 120/79 98 12/13/16 04:00 95.8 87 18 107/76 99 12/13/16 01:01 99 T-piece 5.00 28 12/13/16 01:00 99 T-piece 28 12/13/16 00:00 95.7 73 18 109/68 96 12/12/16 21:00 98 T-Piece 28 Humidified 12/12/16 20:55 93 12/12/16 20:00 97.5 80 16 127/82 96 12/12/16 16:03 96.2 81 20 99/69 96 12/12/16 12:14 96.0 82 20 95/64 96 I/O 12/12/16 12/12/16 12/12/16 12/13/16 12/13/16 12/13/16 07:00 15:00 23:00 07:00 15:00 23:00 Intake Total 200 ml 60 ml Output Total 750 ml 1000 ml 1400 ml 400 ml Balance -750 ml -1000 ml -1200 ml -340 ml Other 200 ml 60 ml Output Urine Total 750 ml 1000 ml 1400 ml 400 ml # Bowel Movements 1 Procedures 01/02/16 PEG placement 01/02/16 tracheostomy 07/22/2016 Wide excision of sacral skin wound, biopsy of the cavity lining and debridement. PEG tube replacement 07/29/16 Objective Remarks GENERAL: SKIN: Warm and dry. HEAD: Atraumatic. Normocephalic. EYES: Pupils equal and round. No scleral icterus. No injection or drainage. ENT: No nasal bleeding or discharge. Mucous membranes pink and moist. NECK: Trachea midline. No JVD. TRACH. [place] CARDIOVASCULAR: Regular rate and rhythm. RESPIRATORY: No accessory muscle use. Clear to auscultation. Breath sounds equal bilaterally. GASTROINTESTINAL: Abdomen soft, non-tender, nondistended. Hepatic and splenic margins not palpable. MUSCULOSKELETAL: Extremities without clubbing, cyanosis, or edema. No obvious deformities. NEUROLOGICAL: Awake and alert. No obvious cranial nerve deficits. Motor grossly within normal limits. Five out of 5 muscle strength in the arms and legs. Normal speech. PSYCHIATRIC: Appropriate mood and affect; insight and judgment normal. Assessment and Plan Assessment and Plan impression respiratory failure CVA S/P TRACHEOSTOMY PLAN O2 NEEDED PULM. TOILET Brandon Taylor MD December 13, 2016 09:13
[2016-12-13] MEDS: ARTIFICIAL TEARS OPTH SOLN 15 ML BTL EACH EYE SCH ×2 (09:28→20:28)
[2016-12-13] MEDS: SODIUM CHLORIDE 0.65% NASAL SPRAY 45 ML BTL NASAL SCH ×2 (09:28→20:28)
[2016-12-13] MEDS: BACITRACIN TOP OINT 15 GM TUBE TOP SCH ×2 (09:29→20:28)
--- NOTE | 2016-12-13 13:38 | HHI.PR ---
Subjective Remarks No acute events overnight. Discussed with the patient's mother at bedside. Eyes closed today. Objective Vitals Vital Signs Date Time Temp Pulse Resp B/P Pulse Ox O2 Delivery O2 Flow Rate FiO2 12/13/16 12:31 96.3 82 20 107/71 98 12/13/16 11:37 100 T-piece 5.00 28 12/13/16 08:34 84 12/13/16 08:25 98.1 85 20 120/79 98 12/13/16 04:00 95.8 87 18 107/76 99 12/13/16 01:01 99 T-piece 5.00 28 12/13/16 01:00 99 T-piece 28 12/13/16 00:00 95.7 73 18 109/68 96 12/12/16 21:00 98 T-Piece 28 Humidified 12/12/16 20:55 93 12/12/16 20:00 97.5 80 16 127/82 96 12/12/16 16:03 96.2 81 20 99/69 96 I/O 12/12/16 12/12/16 12/12/16 12/13/16 12/13/16 12/13/16 06:59 14:59 22:59 06:59 14:59 22:59 Intake Total 200 ml 60 ml Output Total 750 ml 1000 ml 1400 ml 400 ml Balance -750 ml -1000 ml -1200 ml -340 ml Other 200 ml 60 ml Output Urine Total 750 ml 1000 ml 1400 ml 400 ml # Bowel Movements 1 Objective Remarks GENERAL: Nonverbal and in no acute distress. Trach in place SKIN: Warm and dry. CARDIOVASCULAR: Regular rate and rhythm without murmurs, gallops, or rubs. RESPIRATORY: Diffuse coarse breath sounds. Breath sounds equal and clear to auscultation anteriorly GASTROINTESTINAL: Abdomen soft, non-tender, nondistended. PEG tube in place MUSCULOSKELETAL: No cyanosis, or edema. Neuro: Non verbal, non interactive. Procedures 01/02/16 PEG placement 01/02/16 tracheostomy 07/22/2016 Wide excision of sacral skin wound, biopsy of the cavity lining and debridement. 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 May possibly track with his eyes. Continue Keppra for seizure prophylaxis. PT/OT signed off as patient is unable to participate. -No placement available. Appreciate case management assistance. 12/02/16: Rehab Medicine (Dr. Pickens) following Chronic respiratory failure -Secondary to CVA. Status post tracheostomy. Continue pulmonary toilet and bronchodilators as needed. Continue trach care, suctioning. Levsin as needed. -Pulmonary currently following . Appreciate assistance. - Dr. Taylor with pulmonology continues to follow Atrial fibrillation -Continue rate control with Cardizem and metoprolol. Echocardiogram in November 2015 shows preserved ejection fraction. Coumadin discontinued secondary to bleeding. Rate controlled. Continue aspirin and prophylactic heparin dose. History of non-Hodgkin's lymphoma - Status post brain biopsy on December 13 by neurosurgery. Pathology consistent with acute infarct without evidence of lymphoma. Oncology has signed all Diabetes mellitus, controlled A1c 7 -Hemoglobin A1c is 7. Continue Levemir. Monitor Accu-Cheks and cover with sliding scale insulin. Overall blood sugar continues well controlled. Decubitus ulcer stage IV -Continue wound care, twice-daily dressing changes. Wound care recommendations. Continue pressure relief measures including turning and positioning. Patient's family has declined a diverting colostomy. Previous Wound culture growing Klebsiella. on Augmentin. Status post wide excision of sacral skin and biopsy of the cavity lining with debridement on 07/22/16. Continue scheduled [place] every 8 hours. -Continue to monitor for pain. Gastric ulcer, reflux esophagitis - EGD on 07/30/16 showed gastric ulcers. Appreciate GI recommendations. Continue PPI. H&H stable as of last recheck.. UTI pseudomonas aeruginosa treated with abx -Resolved. - Repeat Ucx 08/28/16 negative. -Pt seen by ID (Dr. Alvarez) on 11/28/16. Constipation: -Having regular bowel movements. -on lactulose. Monitor. -Notes of 11/21/16 indicated pt had diarrhea, he was checked for C. Diff and was negative. Imodium to be used. FEN: Continue Nepro tube feeds with free water flushes. Appreciate dietary assistance. 12/02/16: Per Dr. Leal, IR to be consulted to replace GJ tube. -GJ tube replaced on 12/04/16. 12/09 Patient using Gtube - flushed by nurse, continue feedings per dietary recommendations. DVT prophylaxis: SCDs/ subq heparin. Discussed with pt's mother at bedside Problem Qualifiers (1) CVA (cerebral vascular accident): (2) DM (diabetes mellitus): Qualified Code: E11.9 - Type 2 diabetes mellitus without complications Jw Bah MD December 13, 2016 13:38
[2016-12-13] MEDS: PARoxetine HCL SUSP 20 MG/10 ML UDC PEG SCH (18:40)
[2016-12-13] MEDS: KETOCONAZOLE 2% CREAM 15 GM TOPICAL SCH (20:28)
[2016-12-13] MEDS: SODIUM CHLOR 0.9% 1000 ML INJ 1,000 ML IV SCH (20:30)
[2016-12-14] VITALS (11 sets, daily range): BP systolic 121–140; BP diastolic 73–86; PULSE 70–85; RESP 20; TEMP 95.2–97.6; O2SAT 95–99
[2016-12-14] MEDS: FREE WATER TUBE SCH ×6 (04:35→23:13)
[2016-12-14] MEDS: HEPARIN SODIUM - SQ 10,000 UNITS/ML VIAL SQ SCH ×3 (05:10→23:10)
[2016-12-14] MEDS: ACETIC ACID 0.25% SOLN 1000 ML IRR BTL IRRIGATION SCH ×3 (05:15→23:13)
[2016-12-14] MEDS: INSULIN ASPART SUPPLEMENTAL SCALE SQ SCH (06:26)
[2016-12-14] MEDS: ARTIFICIAL TEARS OPTH SOLN 15 ML BTL EACH EYE SCH ×2 (09:00→20:19)
[2016-12-14] MEDS: levETIRAcetam 500 MG/5 ML UDC TUBE SCH ×2 (09:54→20:18)
[2016-12-14] MEDS: POTASSIUM CHLORIDE 25 MEQ EFFERVESCENT TAB TUBE SCH (09:54)
[2016-12-14] MEDS: ASPIRIN 325 MG TAB TUBE SCH (09:54)
[2016-12-14] MEDS: SODIUM CHLORIDE 0.65% NASAL SPRAY 45 ML BTL NASAL SCH ×2 (09:54→20:19)
[2016-12-14] MEDS: PANTOPRAZOLE SODIUM 40 MG VIAL IV PUSH SCH ×2 (09:54→23:10)
[2016-12-14] MEDS: METOPROLOL TARTRATE 50 MG TAB PO SCH ×2 (09:54→20:18)
[2016-12-14] MEDS: NYSTATIN 100,000 U/GM PWD 15 GM BTL TOPICAL SCH ×2 (09:55→20:24)
[2016-12-14] MEDS: KETOCONAZOLE 2% CREAM 15 GM TOPICAL SCH ×2 (09:55→20:24)
[2016-12-14] MEDS: BACITRACIN TOP OINT 15 GM TUBE TOP SCH ×2 (09:55→20:24)
[2016-12-14] MEDS: DILTIAZEM HCL 30 MG TAB PEG SCH (12:17)
--- NOTE | 2016-12-14 13:35 | HHI.PR ---
Subjective Remarks No new issues. Patient eyes open. At times appear to be tracking. Objective Vitals Vital Signs Date Time Temp Pulse Resp B/P Pulse Ox O2 Delivery O2 Flow Rate FiO2 12/14/16 12:18 95.5 77 20 128/86 96 12/14/16 09:14 98 T-piece 6.00 28 12/14/16 08:51 95.2 78 20 140/84 95 12/14/16 08:20 99 Trach Collar 6.00 28 12/14/16 08:15 73 12/14/16 04:00 95.8 74 20 121/74 98 12/14/16 00:00 97.3 81 20 130/81 98 12/13/16 21:00 78 12/13/16 20:45 98 T-Piece 28 Humidified 12/13/16 20:00 98.6 81 20 114/76 98 12/13/16 16:10 96.8 82 20 105/73 99 I/O 12/13/16 12/13/16 12/13/16 12/14/16 12/14/16 12/14/16 07:00 15:00 23:00 07:00 15:00 23:00 Intake Total 260 ml 200 ml 400 ml Output Total 400 ml 1300 ml 1000 ml 525 ml 800 ml Balance -140 ml -1300 ml -800 ml -125 ml -800 ml Other 260 ml 200 ml 400 ml Output Urine Total 400 ml 1300 ml 1000 ml 525 ml 800 ml # Bowel Movements 1 1 2 Objective Remarks GENERAL: Nonverbal and in no acute distress. Trach in place SKIN: Warm and dry. CARDIOVASCULAR: Regular rate and rhythm without murmurs, gallops, or rubs. RESPIRATORY: Diffuse coarse breath sounds. Breath sounds equal and clear to auscultation anteriorly GASTROINTESTINAL: Abdomen soft, non-tender, nondistended. PEG tube in place MUSCULOSKELETAL: No cyanosis, or edema. Neuro: Non verbal, non interactive. Procedures 01/02/16 PEG placement 01/02/16 tracheostomy 07/22/2016 Wide excision of sacral skin wound, biopsy of the cavity lining and debridement. 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 May possibly track with his eyes. Mother at bedside believe he can understand some things. Continue Keppra for seizure prophylaxis. PT/OT signed off as patient is unable to participate. -No placement available. Appreciate case management assistance. 12/02/16: Rehab Medicine (Dr. Pickens) following Chronic respiratory failure -Secondary to CVA. Status post tracheostomy. Continue pulmonary toilet and bronchodilators as needed. Continue trach care, suctioning. Levsin as needed. -Pulmonary currently following . Appreciate assistance. - Dr. Taylor with pulmonology continues to follow Atrial fibrillation -Continue rate control with Cardizem and metoprolol. Echocardiogram in November 2015 shows preserved ejection fraction. Coumadin discontinued secondary to bleeding. Rate controlled. Continue aspirin and prophylactic heparin dose. History of non-Hodgkin's lymphoma - Status post brain biopsy on December 13 by neurosurgery. Pathology consistent with acute infarct without evidence of lymphoma. Oncology has signed all Diabetes mellitus, controlled A1c 7 -Hemoglobin A1c is 7. Continue Levemir. Monitor Accu-Cheks and cover with sliding scale insulin. Overall blood sugar continues well controlled. Decubitus ulcer stage IV -Continue wound care, twice-daily dressing changes. Wound care recommendations. Continue pressure relief measures including turning and positioning. Patient's family has declined a diverting colostomy. Previous Wound culture growing Klebsiella. on Augmentin. Status post wide excision of sacral skin and biopsy of the cavity lining with debridement on 07/22/16. Continue scheduled [place] every 8 hours. -Continue to monitor for pain. Gastric ulcer, reflux esophagitis - EGD on 07/30/16 showed gastric ulcers. Appreciate GI recommendations. Continue PPI. H&H stable as of last recheck.. UTI pseudomonas aeruginosa treated with abx -Resolved. - Repeat Ucx 08/28/16 negative. -Pt seen by ID (Dr. Alvarez) on 11/28/16. Constipation: -Having regular bowel movements. -on lactulose. Monitor. -Notes of 11/21/16 indicated pt had diarrhea, he was checked for C. Diff and was negative. Imodium to be used. FEN: Continue Nepro tube feeds with free water flushes. Appreciate dietary assistance. 12/02/16: Per Dr. Leal, IR to be consulted to replace GJ tube. -GJ tube replaced on 12/04/16. 12/09 Patient using Gtube - flushed by nurse, continue feedings per dietary recommendations. DVT prophylaxis: SCDs/ subq heparin. Discussed with pt's mother at bedside Problem Qualifiers (1) CVA (cerebral vascular accident): (2) DM (diabetes mellitus): Qualified Code: E11.9 - Type 2 diabetes mellitus without complications Jw Bah MD December 14, 2016 13:35
--- NOTE | 2016-12-14 16:31 | HHI.PR ---
Subjective Remarks 60 YO Male with RF, Encephalopathy On Trach collar Cough on suctioning Awake, some tracking of objects noted Mother at BS Objective Vital Signs Vital Signs Date Time Temp Pulse Resp B/P Pulse Ox O2 Delivery O2 Flow Rate FiO2 12/14/16 12:18 95.5 77 20 128/86 96 12/14/16 09:14 98 T-piece 6.00 28 12/14/16 08:51 95.2 78 20 140/84 95 12/14/16 08:20 99 Trach Collar 6.00 28 12/14/16 08:15 73 12/14/16 04:00 95.8 74 20 121/74 98 12/14/16 00:00 97.3 81 20 130/81 98 12/13/16 21:00 78 12/13/16 20:45 98 T-Piece 28 12/13/16 20:00 98.6 81 20 114/76 98 I/O 12/13/16 12/13/16 12/13/16 12/14/16 12/14/16 12/14/16 07:00 15:00 23:00 07:00 15:00 23:00 Intake Total 260 ml 200 ml 400 ml Output Total 400 ml 1300 ml 1000 ml 525 ml 800 ml Balance -140 ml -1300 ml -800 ml -125 ml -800 ml Other 260 ml 200 ml 400 ml Output Urine Total 400 ml 1300 ml 1000 ml 525 ml 800 ml # Bowel Movements 1 1 2 Objective Remarks GENERAL: Well-nourished, well-developed patient. SKIN: Warm and dry. HEAD: Normocephalic. EYES: No scleral icterus. No injection or drainage. NECK: Supple, trachea midline. No JVD or lymphadenopathy. trach in place CARDIOVASCULAR: Regular rate and rhythm without murmurs, gallops, or rubs. RESPIRATORY: Breath sounds equal bilaterally. No accessory muscle use. GASTROINTESTINAL: Abdomen soft, non-tender, nondistended. MUSCULOSKELETAL: No cyanosis, or edema. BACK: Nontender without obvious deformity. No CVA tenderness. A/P Assessment and Plan Resp Failure, s/p trach Encephalopathy AF DM PLAN: Trach care TF DW Family at BS. Suction prn Aureliano Grove MD December 14, 2016 16:31
[2016-12-14] MEDS: PARoxetine HCL SUSP 20 MG/10 ML UDC PEG SCH (18:26)
[2016-12-14] MEDS: SODIUM CHLOR 0.9% 1000 ML INJ 1,000 ML IV SCH (19:45)
[2016-12-15] VITALS (11 sets, daily range): BP systolic 107–133; BP diastolic 67–81; PULSE 75–101; RESP 16–20; TEMP 96.1–97.8; O2SAT 93–99
[2016-12-15] MEDS: DILTIAZEM HCL 30 MG TAB PEG SCH ×2 (01:00→13:00)
[2016-12-15] MEDS: FREE WATER TUBE SCH ×6 (04:00→23:10)
[2016-12-15] MEDS: HEPARIN SODIUM - SQ 10,000 UNITS/ML VIAL SQ SCH ×3 (06:07→23:10)
[2016-12-15] MEDS: INSULIN ASPART SUPPLEMENTAL SCALE SQ SCH (06:09)
[2016-12-15] MEDS: ACETIC ACID 0.25% SOLN 1000 ML IRR BTL IRRIGATION SCH ×3 (06:12→23:13)
[2016-12-15] MEDS: METOPROLOL TARTRATE 50 MG TAB PO SCH ×2 (08:49→21:00)
[2016-12-15] MEDS: POTASSIUM CHLORIDE 25 MEQ EFFERVESCENT TAB TUBE SCH (08:49)
[2016-12-15] MEDS: NYSTATIN 100,000 U/GM PWD 15 GM BTL TOPICAL SCH ×2 (08:50→20:19)
[2016-12-15] MEDS: ASPIRIN 325 MG TAB TUBE SCH (08:50)
[2016-12-15] MEDS: levETIRAcetam 500 MG/5 ML UDC TUBE SCH ×2 (08:50→20:20)
[2016-12-15] MEDS: ARTIFICIAL TEARS OPTH SOLN 15 ML BTL EACH EYE SCH ×2 (08:51→20:19)
[2016-12-15] MEDS: KETOCONAZOLE 2% CREAM 15 GM TOPICAL SCH ×2 (08:51→20:20)
[2016-12-15] MEDS: SODIUM CHLORIDE 0.65% NASAL SPRAY 45 ML BTL NASAL SCH ×2 (08:51→20:19)
[2016-12-15] MEDS: BACITRACIN TOP OINT 15 GM TUBE TOP SCH ×2 (08:51→20:19)
[2016-12-15] MEDS: PANTOPRAZOLE SODIUM 40 MG VIAL IV PUSH SCH ×2 (09:48→23:09)
--- NOTE | 2016-12-15 10:41 | HHI.PR ---
Subjective Remarks No acute events overnight. Afebrile, vital signs stable. Per and mother the patient is much more sleepy today as compared to yesterday. He did open his eyes to sternal stimulation. Did not follow commands. Objective Vitals Vital Signs Date Time Temp Pulse Resp B/P Pulse Ox O2 Delivery O2 Flow Rate FiO2 12/15/16 10:16 98 T-piece 12/15/16 08:17 97.1 93 16 117/74 98 12/15/16 07:09 100 12/15/16 04:00 97.8 101 20 129/71 96 12/15/16 01:40 80 122/79 12/15/16 00:00 96.9 85 20 133/81 98 12/14/16 23:00 85 12/14/16 22:09 98 T-piece 12/14/16 22:09 98 T-piece 12/14/16 20:00 97.6 83 20 125/79 99 12/14/16 18:15 98 T-piece 5.00 12/14/16 18:15 98 T-piece 5.00 12/14/16 16:32 96.4 70 20 124/73 98 12/14/16 12:18 95.5 77 20 128/86 96 I/O 12/14/16 12/14/16 12/14/16 12/15/16 12/15/16 12/15/16 07:00 15:00 23:00 07:00 15:00 23:00 Intake Total 400 ml Output Total 525 ml 800 ml 1000 ml 700 ml Balance -125 ml -800 ml -1000 ml -700 ml Other 400 ml Output Urine Total 525 ml 800 ml 1000 ml 700 ml # Bowel Movements 2 1 1 Objective Remarks GENERAL: Nonverbal and in no acute distress. Trach in place SKIN: Warm and dry. CARDIOVASCULAR: Regular rate and rhythm without murmurs, gallops, or rubs. RESPIRATORY: Diffuse coarse breath sounds. Breath sounds equal and clear to auscultation anteriorly GASTROINTESTINAL: Abdomen soft, non-tender, nondistended. PEG tube in place MUSCULOSKELETAL: No cyanosis, or edema. Neuro: Non verbal, non interactive. Procedures 01/02/16 PEG placement 01/02/16 tracheostomy 07/22/2016 Wide excision of sacral skin wound, biopsy of the cavity lining and debridement. 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 May possibly track with his eyes. Mother at bedside believe he can understand some things. Continue Keppra for seizure prophylaxis. PT/OT signed off as patient is unable to participate. -No placement available. Appreciate case management assistance. 12/02/16: Rehab Medicine (Dr. Pickens) following Chronic respiratory failure -Secondary to CVA. Status post tracheostomy. Continue pulmonary toilet and bronchodilators as needed. Continue trach care, suctioning. Levsin as needed. -Pulmonary currently following . Appreciate assistance. - Dr. Taylor with pulmonology continues to follow Atrial fibrillation -Continue rate control with Cardizem and metoprolol. Echocardiogram in November 2015 shows preserved ejection fraction. Coumadin discontinued secondary to bleeding. Rate controlled. Continue aspirin and prophylactic heparin dose. History of non-Hodgkin's lymphoma - Status post brain biopsy on December 13 by neurosurgery. Pathology consistent with acute infarct without evidence of lymphoma. Oncology has signed all Diabetes mellitus, controlled A1c 7 -Hemoglobin A1c is 7. Continue Levemir. Monitor Accu-Cheks and cover with sliding scale insulin. Overall blood sugar continues well controlled. Decubitus ulcer stage IV -Continue wound care, twice-daily dressing changes. Wound care recommendations. Continue pressure relief measures including turning and positioning. Patient's family has declined a diverting colostomy. Previous Wound culture growing Klebsiella. on Augmentin. Status post wide excision of sacral skin and biopsy of the cavity lining with debridement on 07/22/16. Continue scheduled [place] every 8 hours. -Continue to monitor for pain. Gastric ulcer, reflux esophagitis - EGD on 07/30/16 showed gastric ulcers. Appreciate GI recommendations. Continue PPI. H&H stable as of last recheck. UTI pseudomonas aeruginosa treated with abx -Resolved. - Repeat Ucx 08/28/16 negative. -Pt seen by ID (Dr. Alvarez) on 11/28/16. Constipation: -Having regular bowel movements. -on lactulose. Monitor. -Notes of 11/21/16 indicated pt had diarrhea, he was checked for C. Diff and was negative. Imodium to be used. FEN: Continue Nepro tube feeds with free water flushes. Appreciate dietary assistance. 12/02/16: Per Dr. Leal, IR to be consulted to replace GJ tube. -GJ tube replaced on 12/04/16. 12/09 Patient using Gtube - flushed by nurse, continue feedings per dietary recommendations. DVT prophylaxis: SCDs/ subq heparin. Problem Qualifiers (1) CVA (cerebral vascular accident): (2) DM (diabetes mellitus): Qualified Code: E11.9 - Type 2 diabetes mellitus without complications Judith Huang MD R3 December 15, 2016 10:41
[2016-12-15] MEDS: PARoxetine HCL SUSP 20 MG/10 ML UDC PEG SCH (18:16)
[2016-12-15] MEDS: SODIUM CHLOR 0.9% 1000 ML INJ 1,000 ML IV SCH (19:45)
--- NOTE | 2016-12-15 20:00 | HHI.PR ---
Subjective Remarks 60 YO Male with RF, Encephalopathy On Trach collar Cough on suctioning Awake, some tracking of objects noted Mother at BS No fever Objective Vital Signs Vital Signs Date Time Temp Pulse Resp B/P Pulse Ox O2 Delivery O2 Flow Rate FiO2 12/15/16 17:57 99 T-piece 6.00 28 12/15/16 17:57 99 T-piece 6.00 28 12/15/16 16:42 96.1 81 16 107/72 99 12/15/16 12:09 97.1 77 16 108/67 98 12/15/16 10:16 98 T-piece 28 12/15/16 08:17 97.1 93 16 117/74 98 12/15/16 07:09 100 12/15/16 04:00 97.8 101 20 129/71 96 12/15/16 01:40 80 122/79 12/15/16 00:00 96.9 85 20 133/81 98 12/14/16 23:00 85 12/14/16 22:09 98 T-piece 12/14/16 22:09 98 T-piece 12/14/16 20:00 97.6 83 20 125/79 99 I/O 12/14/16 12/14/16 12/14/16 12/15/16 12/15/16 12/15/16 07:00 15:00 23:00 07:00 15:00 23:00 Intake Total 400 ml Output Total 525 ml 800 ml 1000 ml 700 ml 925 ml 950 ml Balance -125 ml -800 ml -1000 ml -700 ml -925 ml -950 ml Other 400 ml Output Urine Total 525 ml 800 ml 1000 ml 700 ml 925 ml 950 ml # Bowel Movements 2 1 1 Objective Remarks GENERAL: Well-nourished, well-developed patient. SKIN: Warm and dry. HEAD: Normocephalic. EYES: No scleral icterus. No injection or drainage. NECK: Supple, trachea midline. No JVD or lymphadenopathy. trach in place CARDIOVASCULAR: Regular rate and rhythm without murmurs, gallops, or rubs. RESPIRATORY: Breath sounds equal bilaterally. No accessory muscle use. GASTROINTESTINAL: Abdomen soft, non-tender, nondistended. MUSCULOSKELETAL: No cyanosis, or edema. BACK: Nontender without obvious deformity. No CVA tenderness. A/P Assessment and Plan Resp Failure, s/p trach Encephalopathy AF DM PLAN: Trach care TF DW Family at BS. Suction prn Cont same treatment plan. Aureliano Grove MD December 15, 2016 20:00
[2016-12-16] VITALS (10 sets, daily range): BP systolic 105–131; BP diastolic 67–85; PULSE 73–99; RESP 20; TEMP 95.5–97.3; O2SAT 95–100
[2016-12-16] MEDS: DILTIAZEM HCL 30 MG TAB PEG SCH ×2 (01:59→13:00)
[2016-12-16] MEDS: FREE WATER TUBE SCH ×5 (04:00→20:00)
[2016-12-16] MEDS: HEPARIN SODIUM - SQ 10,000 UNITS/ML VIAL SQ SCH ×3 (06:01→20:51)
[2016-12-16] MEDS: INSULIN ASPART SUPPLEMENTAL SCALE SQ SCH (06:04)
[2016-12-16] MEDS: ACETIC ACID 0.25% SOLN 1000 ML IRR BTL IRRIGATION SCH ×3 (06:04→21:00)
[2016-12-16] MEDS: ASPIRIN 325 MG TAB TUBE SCH (08:23)
[2016-12-16] MEDS: METOPROLOL TARTRATE 50 MG TAB PO SCH ×2 (08:23→20:51)
[2016-12-16] MEDS: POTASSIUM CHLORIDE 25 MEQ EFFERVESCENT TAB TUBE SCH (08:23)
[2016-12-16] MEDS: levETIRAcetam 500 MG/5 ML UDC TUBE SCH ×2 (08:23→20:51)
[2016-12-16] MEDS: SODIUM CHLORIDE 0.65% NASAL SPRAY 45 ML BTL NASAL SCH ×2 (08:24→20:50)
[2016-12-16] MEDS: NYSTATIN 100,000 U/GM PWD 15 GM BTL TOPICAL SCH ×2 (08:24→20:49)
[2016-12-16] MEDS: KETOCONAZOLE 2% CREAM 15 GM TOPICAL SCH ×2 (08:24→20:50)
[2016-12-16] MEDS: BACITRACIN TOP OINT 15 GM TUBE TOP SCH ×2 (08:24→20:50)
[2016-12-16] MEDS: ARTIFICIAL TEARS OPTH SOLN 15 ML BTL EACH EYE SCH ×2 (08:24→20:50)
[2016-12-16] MEDS: PANTOPRAZOLE SODIUM 40 MG VIAL IV PUSH SCH ×2 (10:12→20:56)
--- NOTE | 2016-12-16 15:18 | HHI.PR ---
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 Pt non-verbal and not involved with his own care. Pt has T-piece in place. Per pt's mother, at bedside, no new issues. Per RN, she reported tachycardia at start of shift, which resolved after he received his morning metoprolol. Pt reportedly without fever, nausea, vomiting. No new issues noted or reported. Objective Vitals Vital Signs Date Time Temp Pulse Resp B/P Pulse Ox O2 Delivery O2 Flow Rate FiO2 12/16/16 11:35 96.8 74 20 111/70 98 12/16/16 09:45 98 T-piece 5.00 28 12/16/16 09:45 98 T-piece 5.00 28 12/16/16 08:15 99 Trach Collar 6.00 28 Humidified 12/16/16 08:15 99 12/16/16 07:50 97.3 91 20 105/70 96 12/16/16 04:00 97.2 86 20 129/75 95 12/16/16 01:55 91 116/78 12/16/16 00:00 95.7 90 20 123/67 97 12/15/16 23:00 75 12/15/16 20:00 96.9 80 20 112/73 93 12/15/16 17:57 99 T-piece 6.00 28 12/15/16 17:57 99 T-piece 6.00 28 12/15/16 16:42 96.1 81 16 107/72 99 I/O 12/15/16 12/15/16 12/15/16 12/16/16 12/16/16 12/16/16 07:00 15:00 23:00 07:00 15:00 23:00 Intake Total 640 ml Output Total 700 ml 925 ml 950 ml 1175 ml 650 ml Balance -700 ml -925 ml -950 ml -1175 ml -10 ml IV Total 240 ml Tube Feeding 400 ml Output Urine Total 700 ml 925 ml 950 ml 1175 ml 650 ml # Bowel Movements 1 1 0 0 Imaging Last Impressions Chest X-Ray 12/06/16 0000 Signed Impressions: Service Date/Time: Tuesday, December 06, 2016 11:07 - CONCLUSION: 1. Hypoinflation with minimal bibasilar atelectatic changes. 2. No confluent infiltrate or effusion. Bobby Gray MD Tube Check 12/04/16 0000 Signed Impressions: Service Date/Time: Sunday, December 04, 2016 17:58 - CONCLUSION: Uncomplicated tube injection as above. the tube is in good position and functions normally. Moises Ramírez MD Tube Change 11/18/16 0000 Signed Impressions: Service Date/Time: Friday, November 18, 2016 17:38 - CONCLUSION: Uncomplicated gastrojejunostomy tube exchange as above. Jonel Jones Jr., MD Abdomen X-Ray 08/31/16 0000 Signed Impressions: Service Date/Time: Wednesday, August 31, 2016 16:36 - CONCLUSION: 1. No acute findings. Mild constipation. Durga Dotson MD Abdomen/Pelvis CT 04/12/16 0000 Signed Impressions: Service Date/Time: Tuesday, April 12, 2016 20:52 - CONCLUSION: 1. 6.4 cm necrotic mass or abscess in the soft tissues posteriorly just below the sacrum associated with some bony destructive change of the lower most sacrum and coccyx with inflammatory changes extending into the ischiorectal fossa and into the presacral retroperitoneum predominantly on the left side. There is associated fairly marked mural thickening of the anal verge and rectum. 2. There is gastrostomy and Arevalo catheter present. Stable abdominal aortic aneurysm. Durga Dotson MD Head Magnetic Resonance Angiography 03/05/16 0000 Signed Impressions: Service Date/Time: Saturday, March 05, 2016 09:26 - CONCLUSION: Persistent high-grade subtotal occlusive stenotic lesions in the distal right vertebral artery and proximal basilar artery with significant improvement in flow and recanalization following initial presentation of thrombosis. Stable interstitial circulation without significant stenosis. 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 There is decreasing restricted diffusion and increasing loss of volume characteristic of a subacute to chronic infarct. No evidence of acute infarct, acute hemorrhage mass or edema. Ernesto Kulkarni MD Head CT 01/16/16 0000 Signed Impressions: Service Date/Time: Saturday, January 16, 2016 10:51 - CONCLUSION: No extensive low density in the brainstem colin more prominent in the right the left extending into the right middle cerebellar peduncle consistent with brainstem infarct nonhemorrhagic acute Wellington West MD Neck Magnetic Resonance Angiography 12/22/15 1445 Signed Impressions: Service Date/Time: Tuesday, December 22, 2015 09:22 - CONCLUSION: Variant origin of the left vertebral artery from the aortic arch. No evidence of carotid stenosis. Glen Zamora MD Head/Brain Mag Res Venography 12/22/15 0000 Signed Impressions: Service Date/Time: Tuesday, December 22, 2015 09:22 - CONCLUSION: Normal MRV. Jonel Jones Jr., MD Objective Remarks GENERAL: Pt encountered laying a bed, non-verbal, tracking people in room, variable level of eye opening/alertness. Not in acute distress. SKIN: Warm and dry. tattoo noted on right forearm. HEAD: Normocephalic. EYES: Non-icteric without injection or drainage. Pt noted to have eyes closed for much of clinical visit. NECK: Supple, trachea midline. T-tube in place. CARDIOVASCULAR: Regular rate and rhythm without murmurs, gallops, or rubs. RESPIRATORY: Breath sounds equal bilaterally;. No accessory muscle use. Trach tube in place. Bedside monitor indicated oxygen saturation was 97% GASTROINTESTINAL: Abdomen soft, non-tender, nondistended. GJ tube noted, area around insertion was dry and seemingly without leakage. MUSCULOSKELETAL: No cyanosis, or edema. SCD's noted to be on both legs. PSYCHIATRIC: Pt non-verbal, he appeared calm and not in distress. Procedures 01/02/16 PEG placement 01/02/16 tracheostomy 07/22/2016 Wide excision of sacral skin wound, biopsy of the cavity lining and debridement. PEG tube replacement 07/29/16 VAC changes- M-W-F 10/23- GJ tube replacement Medications and IVs Current Medications Medications (Trade) Dose Ordered Sig/Junior Route Start Time Stop Time Status Last Admin (NS Flush) 2 ml UNSCH PRN IVF 12/21/15 06:00 09/28/16 21:18 (Keppra Liq) 500 mg Q12HR TUBE 12/27/15 21:00 12/16/16 08:23 (Tylenol 650 Mg/ 20 ml Liq) 650 mg Q6H PRN TUBE 12/30/15 15:15 11/14/16 21:18 (Mycostatin Powder) 1 applic Q12HR TOPICAL 01/08/16 21:00 12/16/16 08:24 (Pill Splitter) 1 ea UNSCH PRN OTHER 01/14/16 08:30 (Acetic Acid 0.25% Irr Btl) 10 ml Q8HR IRRIGATION 02/05/16 16:00 12/16/16 13:57 (Ativan Inj) 0.5 mg Q4H PRN IV PUSH 03/07/16 23:00 (Paxil Liq) 20 mg DAILY@1900 PEG 03/12/16 19:00 12/15/16 18:16 (Levemir Inj) 35 units HS SQ 03/24/16 21:00 Hold 11/15/16 22:06 (Levsin) 0.25 mg Q4H PRN G-TUBE 04/11/16 10:30 08/31/16 05:02 (Zofran Inj) 4 mg Q6HR PRN IV PUSH 04/14/16 19:45 08/10/16 10:16 (Free Water) 200 ml Q4HR TUBE 04/16/16 12:00 12/16/16 12:00 (D50w (Vial) Inj) 25 ml UNSCH PRN IV 04/20/16 12:00 (Glucagon Inj) 1 mg UNSCH PRN IM/SQ 04/20/16 12:00 (K-Lyte Cl Eff) 25 meq DAILY TUBE 05/28/16 09:00 12/16/16 08:23 (Aspirin) 325 mg DAILY TUBE 05/27/16 11:40 12/16/16 08:23 (Heparin Inj) 5,000 units Q8HR SQ 06/11/16 14:00 12/16/16 13:57 (Baciguent Oint) 1 applic BID TOP 07/20/16 10:00 12/16/16 08:24 (Protonix Inj) 40 mg Q12H IV PUSH 07/30/16 10:15 12/16/16 10:12 (Munday Angel [place]) 1 spray BID NASAL 08/01/16 21:00 12/16/16 08:24 (Colace Liq) 100 mg BID PO 08/30/16 21:00 Hold 11/20/16 08:03 (Lactulose Liq) 30 ml DAILY PO 09/02/16 15:30 Hold 11/20/16 08:03 (Tears Naturale Opth Soln) 1 drop BID EACH EYE 09/05/16 21:00 12/16/16 08:24 (Morphine Inj) 1 mg Q24H PRN IV PUSH 09/17/16 14:30 10/22/16 02:00 (Nizoral 2% Cream) 1 applic Q12HR TOPICAL 09/24/16 21:00 12/16/16 08:24 (Senna Liq) 8.8 mg DAILY@1600 PO 09/25/16 17:00 Hold 11/12/16 16:45 (Fleets Enema (Adult)) 133 ml UNSCH PRN OK 09/25/16 16:00 (Dulcolax Supp) 10 mg DAILY PRN RECTAL 09/26/16 15:30 12/08/16 09:17 (Milk Of Magnesia Liq) 30 ml DAILY PRN PO 10/13/16 14:30 12/10/16 14:32 ([place] 5-325 Mg) 1 tab Q6H PRN PO 10/13/16 18:45 12/12/16 05:20 (Flexeril) 5 mg HS PRN PO 10/14/16 14:15 10/22/16 21:17 (Cardizem) 30 mg Q12H PEG 11/20/16 01:00 12/16/16 01:59 (Lopressor) 25 mg BID PO 11/19/16 21:00 12/16/16 08:23 Loperamide HCl 2 mg 2 mg Q6H PRN PO 11/20/16 15:30 11/21/16 02:04 (NS 1000 ml Inj) 1,000 ml @ 30 mls/hr Q24H IV 11/28/16 19:45 12/13/16 20:30 Urinary Catheter: Yes Assessment to: Continue Arevalo insert reason: Prolonged Immobilization Date of Insertion: Oct 12, 2016 Vascular Central Line Catheter: No A/P Problem List: (1) CVA (cerebral vascular accident) ICD Code: I63.9 Status: Acute (2) A-fib ICD Code: I48.91 Status: Chronic (3) DM (diabetes mellitus) ICD Code: E11.9 Status: Chronic Assessment and Plan 60 year-old male with: //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 Tracks with his eyes. Continue Keppra for seizure prophylaxis. PT/OT signed off as patient is unable to participate. -Need placement. Difficult. Appreciate case management assistance. 12/02/16: Rehab Medicine (Dr. Pickens) saw pt on 12/04/16, rec's on chart. //Chronic respiratory failure -Secondary to CVA. Status post tracheostomy. Continue pulmonary toilet and bronchodilators as needed. Continue trach care, suctioning. Levsin as needed. -Pulmonary currently following . Appreciate assistance. -Pt noted to have oxygenation (per bedside monitor) improvement noted after pt was repositioned and he received a breathing treatment. Oxygen saturation was noted to be 95% on follow-up visit. -12/06/16 pt noted to have Rhonchi for second day, chest x-ray ordered. No acute findings noted. pt without cough and fever. monitor. -12/07/16 Rhonchi not present upon exam. Discussed with Dr. Leal and he advised using Mucomyst should rhonchi recur. Dr. Taylor with pulmonology continues to follow //Atrial fibrillation -Continue rate control with Cardizem and metoprolol. Echocardiogram in November 2015 shows preserved ejection fraction. Coumadin discontinued secondary to bleeding. Rate controlled. Continue aspirin and prophylactic heparin dose. //History of non-Hodgkin's lymphoma - Status post brain biopsy on December 13 by neurosurgery. Pathology consistent with acute infarct without evidence of lymphoma. Oncology has signed all //Diabetes mellitus -Hemoglobin A1c is 7. Continue Levemir. Monitor Accu-Cheks and cover with sliding scale insulin. Overall blood sugar continues well controlled. //Decubitus ulcer stage IV -Continue wound care, twice-daily dressing changes. Wound care recommendations. Continue pressure relief measures including turning and positioning. Patient's family has declined a diverting colostomy. Previous Wound culture growing Klebsiella. on Augmentin. Status post wide excision of sacral skin and biopsy of the cavity lining with debridement on 07/22/16. Continue scheduled [place] every 8 hours. -Continue to monitor for pain. //Gastric ulcer, reflux esophagitis - EGD on 07/30/16 showed gastric ulcers. Appreciate GI recommendations. Continue PPI. H&H stable as of last recheck.. //UTI pseudomonas aeruginosa treated with abx -Resolved. - Repeat Ucx 08/28/16 negative. -Pt seen by ID (Dr. Alvarez) on 11/28/16. //Constipation: -Having regular bowel movements. -on lactulose. Monitor. -Notes of 11/21/16 indicated pt had diarrhea, he was checked for C. Diff and was negative. Imodium to be used. //FEN: Continue Nepro tube feeds with free water flushes. Appreciate dietary assistance. 12/02/16: Per Dr. Leal, IR to be consulted to replace GJ tube. -pt to have his GJ tube replaced later today (12/03/16). Replacement procedure did not occur on 12/03/16 and is being delayed until later today (12/04/16). -GJ tube replaced on 12/04/16. Per IR physician's note, no obstruction found and tube was in the correct position and operating normally. 12/07/16 J tube is clogged, nursing has applied water as well as soda to the line to try and flush the line with no progress at this time. G tube is patent and will use for feeding and medication. May need to consider increased rate of delivery to prevent clogging as well as more frequent flushing should patency of J tube be regained. Dr. Leal informed.12/08/16. J tube remains clogged, RN increased flow rate through G tube to 35 ml/hour. //DVT prophylaxis: SCDs/ subq heparin. Discussed with pt's mother, RN (bedside) and Dr. Lala. Discharge Planning Per CM on 11/29: pt has no payor source for rehab, declined by multiple facilities. Reviewed CM notes, placement continues to be an issue. Problem Qualifiers (1) CVA (cerebral vascular accident): (2) DM (diabetes mellitus): Qualified Code: E11.9 - Type 2 diabetes mellitus without complications Javier Harris Jr. December 16, 2016 15:18
--- NOTE | 2016-12-16 17:25 | HHI.PR ---
Subjective Remarks 60 YO Male with RF, Encephalopathy On Trach collar Cough on suctioning Awake, some tracking of objects noted Mother at BS Minimal oral secretions Objective Vital Signs Vital Signs Date Time Temp Pulse Resp B/P Pulse Ox O2 Delivery O2 Flow Rate FiO2 12/16/16 15:40 95.5 73 20 128/81 100 12/16/16 11:35 96.8 74 20 111/70 98 12/16/16 09:45 98 T-piece 5.00 28 12/16/16 09:45 98 T-piece 5.00 28 12/16/16 08:15 99 Trach Collar 6.00 28 Humidified 12/16/16 08:15 99 12/16/16 07:50 97.3 91 20 105/70 96 12/16/16 04:00 97.2 86 20 129/75 95 12/16/16 01:55 91 116/78 12/16/16 00:00 95.7 90 20 123/67 97 12/15/16 23:00 75 12/15/16 20:00 96.9 80 20 112/73 93 12/15/16 17:57 99 T-piece 6.00 28 12/15/16 17:57 99 T-piece 6.00 28 I/O 12/15/16 12/15/16 12/15/16 12/16/16 12/16/16 12/16/16 07:00 15:00 23:00 07:00 15:00 23:00 Intake Total 640 ml Output Total 700 ml 925 ml 950 ml 1175 ml 650 ml Balance -700 ml -925 ml -950 ml -1175 ml -10 ml IV Total 240 ml Tube Feeding 400 ml Output Urine Total 700 ml 925 ml 950 ml 1175 ml 650 ml # Bowel Movements 1 1 0 0 Objective Remarks GENERAL: Well-nourished, well-developed patient. SKIN: Warm and dry. HEAD: Normocephalic. EYES: No scleral icterus. No injection or drainage. NECK: Supple, trachea midline. No JVD or lymphadenopathy. trach in place CARDIOVASCULAR: Regular rate and rhythm without murmurs, gallops, or rubs. RESPIRATORY: Breath sounds equal bilaterally. No accessory muscle use. GASTROINTESTINAL: Abdomen soft, non-tender, nondistended. MUSCULOSKELETAL: No cyanosis, or edema. BACK: Nontender without obvious deformity. No CVA tenderness. A/P Assessment and Plan Resp Failure, s/p trach Encephalopathy AF DM PLAN: Trach care TF DW Family at BS. Suction prn Cont same treatment plan. Aureliano Grove MD December 16, 2016 17:25
[2016-12-16] MEDS: PARoxetine HCL SUSP 20 MG/10 ML UDC PEG SCH (18:10)
[2016-12-16] MEDS: SODIUM CHLOR 0.9% 1000 ML INJ 1,000 ML IV SCH (19:45)
[2016-12-17] VITALS (9 sets, daily range): BP systolic 107–134; BP diastolic 68–84; PULSE 74–97; RESP 17–22; TEMP 95.6–97.6; O2SAT 83–99
[2016-12-17] MEDS: DILTIAZEM HCL 30 MG TAB PEG SCH ×2 (02:28→13:00)
[2016-12-17] MEDS: FREE WATER TUBE SCH ×4 (04:00→21:00)
[2016-12-17] MEDS: ACETIC ACID 0.25% SOLN 1000 ML IRR BTL IRRIGATION SCH ×2 (06:00→18:41)
[2016-12-17] MEDS: HEPARIN SODIUM - SQ 10,000 UNITS/ML VIAL SQ SCH ×3 (06:00→21:12)
[2016-12-17] MEDS: INSULIN ASPART SUPPLEMENTAL SCALE SQ SCH (06:38)
[2016-12-17] MEDS: KETOCONAZOLE 2% CREAM 15 GM TOPICAL SCH ×2 (09:00→21:00)
[2016-12-17] MEDS: ARTIFICIAL TEARS OPTH SOLN 15 ML BTL EACH EYE SCH ×2 (10:11→21:13)
[2016-12-17] MEDS: levETIRAcetam 500 MG/5 ML UDC TUBE SCH ×2 (10:11→21:11)
[2016-12-17] MEDS: POTASSIUM CHLORIDE 25 MEQ EFFERVESCENT TAB TUBE SCH (10:11)
[2016-12-17] MEDS: PANTOPRAZOLE SODIUM 40 MG VIAL IV PUSH SCH ×2 (10:11→21:12)
[2016-12-17] MEDS: SODIUM CHLORIDE 0.65% NASAL SPRAY 45 ML BTL NASAL SCH ×2 (10:11→21:13)
[2016-12-17] MEDS: ASPIRIN 325 MG TAB TUBE SCH (10:11)
[2016-12-17] MEDS: METOPROLOL TARTRATE 50 MG TAB PO SCH ×2 (10:11→21:11)
[2016-12-17] MEDS: BACITRACIN TOP OINT 15 GM TUBE TOP SCH ×2 (10:11→21:14)
--- NOTE | 2016-12-17 10:50 | HHI.PR ---
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 Pt non-verbal and not involved with his own care. Pt has T-piece in place. Per pt's mother, at bedside, she voiced concern over feeding tube clogging; RN confirmed clogging issue. Pt reportedly without fever, nausea, vomiting. other than above, no new issues noted or reported. Objective Vitals Vital Signs Date Time Temp Pulse Resp B/P Pulse Ox O2 Delivery O2 Flow Rate FiO2 12/17/16 07:45 97.6 92 20 124/72 95 12/17/16 05:15 97 Trach Collar 6.00 28 12/17/16 04:00 97.1 97 20 107/68 83 12/17/16 00:00 97.2 87 22 126/77 98 12/16/16 21:02 97 T-piece 6.00 28 12/16/16 21:02 100 T-piece 6.00 28 12/16/16 20:00 96.5 98 20 131/85 99 12/16/16 15:40 95.5 73 20 128/81 100 12/16/16 11:35 96.8 74 20 111/70 98 I/O 12/16/16 12/16/16 12/16/16 12/17/16 12/17/16 12/17/16 07:00 15:00 23:00 07:00 15:00 23:00 Intake Total 640 ml Output Total 1175 ml 650 ml 1200 ml 700 ml Balance -1175 ml -10 ml -1200 ml -700 ml IV Total 240 ml Tube Feeding 400 ml Output Urine Total 1175 ml 650 ml 1200 ml 700 ml # Bowel Movements 0 0 1 1 Imaging No new imaging ordered, resulted, or pending within the past 24 hours. Objective Remarks GENERAL: Pt encountered laying a bed, non-verbal, tracking people in room, glasses worn. Not in acute distress. SKIN: Warm and dry. tattoo noted on right forearm. HEAD: Normocephalic. EYES: Non-icteric without injection or drainage. Pt noted to have eyes open for much of clinical visit. NECK: Supple, trachea midline. T-tube in place. CARDIOVASCULAR: Regular rate and rhythm without murmurs, gallops, or rubs. RESPIRATORY: Breath sounds equal bilaterally;. No accessory muscle use. Trach tube in place. Bedside monitor indicated oxygen saturation was 99% GASTROINTESTINAL: Abdomen soft, non-tender, nondistended. GJ tube noted, area around insertion was dry and seemingly without leakage. MUSCULOSKELETAL: No cyanosis, or edema. SCD's noted to be on both legs. PSYCHIATRIC: Pt non-verbal, he appeared calm and not in distress. Procedures 01/02/16 PEG placement 01/02/16 tracheostomy 07/22/2016 Wide excision of sacral skin wound, biopsy of the cavity lining and debridement. PEG tube replacement 07/29/16 VAC changes- M-W-F 10/23- GJ tube replacement Medications and IVs Current Medications Medications (Trade) Dose Ordered Sig/Junior Route Start Time Stop Time Status Last Admin (NS Flush) 2 ml UNSCH PRN IVF 12/21/15 06:00 09/28/16 21:18 (Keppra Liq) 500 mg Q12HR TUBE 12/27/15 21:00 12/16/16 20:51 (Tylenol 650 Mg/ 20 ml Liq) 650 mg Q6H PRN TUBE 12/30/15 15:15 11/14/16 21:18 (Mycostatin Powder) 1 applic Q12HR TOPICAL 01/08/16 21:00 12/16/16 20:49 (Pill Splitter) 1 ea UNSCH PRN OTHER 01/14/16 08:30 (Acetic Acid 0.25% Irr Btl) 10 ml Q8HR IRRIGATION 02/05/16 16:00 12/17/16 06:00 (Ativan Inj) 0.5 mg Q4H PRN IV PUSH 03/07/16 23:00 (Paxil Liq) 20 mg DAILY@1900 PEG 03/12/16 19:00 12/16/16 18:10 (Levemir Inj) 35 units HS SQ 03/24/16 21:00 Hold 11/15/16 22:06 (Levsin) 0.25 mg Q4H PRN G-TUBE 04/11/16 10:30 08/31/16 05:02 (Zofran Inj) 4 mg Q6HR PRN IV PUSH 04/14/16 19:45 08/10/16 10:16 (Free Water) 200 ml Q4HR TUBE 04/16/16 12:00 12/17/16 04:00 (D50w (Vial) Inj) 25 ml UNSCH PRN IV 04/20/16 12:00 (Glucagon Inj) 1 mg UNSCH PRN IM/SQ 04/20/16 12:00 (K-Lyte Cl Eff) 25 meq DAILY TUBE 05/28/16 09:00 12/16/16 08:23 (Aspirin) 325 mg DAILY TUBE 05/27/16 11:40 12/16/16 08:23 (Heparin Inj) 5,000 units Q8HR SQ 06/11/16 14:00 12/17/16 06:00 (Baciguent Oint) 1 applic BID TOP 07/20/16 10:00 12/16/16 20:50 (Protonix Inj) 40 mg Q12H IV PUSH 07/30/16 10:15 12/16/16 20:56 ([place]) 1 spray BID NASAL 08/01/16 21:00 12/16/16 20:50 (Colace Liq) 100 mg BID PO 08/30/16 21:00 Hold 11/20/16 08:03 (Lactulose Liq) 30 ml DAILY PO 09/02/16 15:30 Hold 11/20/16 08:03 (Tears Naturale Opth Soln) 1 drop BID EACH EYE 09/05/16 21:00 12/16/16 20:50 (Morphine Inj) 1 mg Q24H PRN IV PUSH 09/17/16 14:30 10/22/16 02:00 (Nizoral 2% Cream) 1 applic Q12HR TOPICAL 09/24/16 21:00 12/16/16 20:50 (Senna Liq) 8.8 mg DAILY@1600 PO 09/25/16 17:00 Hold 11/12/16 16:45 (Fleets Enema (Adult)) 133 ml UNSCH PRN NV 09/25/16 16:00 (Dulcolax Supp) 10 mg DAILY PRN RECTAL 09/26/16 15:30 12/08/16 09:17 (Milk Of Magnesia Liq) 30 ml DAILY PRN PO 10/13/16 14:30 12/10/16 14:32 ([place] 5-325 Mg) 1 tab Q6H PRN PO 10/13/16 18:45 12/12/16 05:20 (Flexeril) 5 mg HS PRN PO 10/14/16 14:15 10/22/16 21:17 (Cardizem) 30 mg Q12H PEG 11/20/16 01:00 12/17/16 02:28 (Lopressor) 25 mg BID PO 11/19/16 21:00 12/16/16 20:51 Loperamide HCl 2 mg 2 mg Q6H PRN PO 11/20/16 15:30 11/21/16 02:04 (NS 1000 ml Inj) 1,000 ml @ 30 mls/hr Q24H IV 11/28/16 19:45 12/13/16 20:30 Urinary Catheter: Yes Assessment to: Continue Arevalo insert reason: Prolonged Immobilization Date of Insertion: Oct 12, 2016 Vascular Central Line Catheter: No A/P Problem List: (1) CVA (cerebral vascular accident) ICD Code: I63.9 Status: Acute (2) A-fib ICD Code: I48.91 Status: Chronic (3) DM (diabetes mellitus) ICD Code: E11.9 Status: Chronic Assessment and Plan 60 year-old male with: //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 Tracks with his eyes. Continue Keppra for seizure prophylaxis. PT/OT signed off as patient is unable to participate. -Need placement. Difficult. Appreciate case management assistance. 12/02/16: Rehab Medicine (Dr. Pickens) saw pt on 12/04/16, rec's on chart. //Chronic respiratory failure -Secondary to CVA. Status post tracheostomy. Continue pulmonary toilet and bronchodilators as needed. Continue trach care, suctioning. Levsin as needed. -Pulmonary currently following . Appreciate assistance. -Pt noted to have oxygenation (per bedside monitor) improvement noted after pt was repositioned and he received a breathing treatment. Oxygen saturation was noted to be 95% on follow-up visit. -12/06/16 pt noted to have Rhonchi for second day, chest x-ray ordered. No acute findings noted. pt without cough and fever. monitor. -12/07/16 Rhonchi not present upon exam. Discussed with Dr. Leal and he advised using Mucomyst should rhonchi recur. Dr. Taylor with pulmonology continues to follow //Atrial fibrillation -Continue rate control with Cardizem and metoprolol. Echocardiogram in November 2015 shows preserved ejection fraction. Coumadin discontinued secondary to bleeding. Rate controlled. Continue aspirin and prophylactic heparin dose. //History of non-Hodgkin's lymphoma - Status post brain biopsy on December 13 by neurosurgery. Pathology consistent with acute infarct without evidence of lymphoma. Oncology has signed all //Diabetes mellitus -Hemoglobin A1c is 7. Continue Levemir. Monitor Accu-Cheks and cover with sliding scale insulin. Overall blood sugar continues well controlled. //Decubitus ulcer stage IV -Continue wound care, twice-daily dressing changes. Wound care recommendations. Continue pressure relief measures including turning and positioning. Patient's family has declined a diverting colostomy. Previous Wound culture growing Klebsiella. on Augmentin. Status post wide excision of sacral skin and biopsy of the cavity lining with debridement on 07/22/16. Continue scheduled [place] every 8 hours. -Continue to monitor for pain. //Gastric ulcer, reflux esophagitis - EGD on 07/30/16 showed gastric ulcers. Appreciate GI recommendations. Continue PPI. H&H stable as of last recheck.. //UTI pseudomonas aeruginosa treated with abx -Resolved. - Repeat Ucx 08/28/16 negative. -Pt seen by ID (Dr. Alvarez) on 11/28/16. //Constipation: -Having regular bowel movements. -on lactulose. Monitor. -Notes of 11/21/16 indicated pt had diarrhea, he was checked for C. Diff and was negative. Imodium to be used. //FEN: Continue Nepro tube feeds with free water flushes. Appreciate dietary assistance. 12/02/16: Per SUSAN Huizar to be consulted to replace GJ tube. -pt to have his GJ tube replaced later today (12/03/16). Replacement procedure did not occur on 12/03/16 and is being delayed until later today (12/04/16). -GJ tube replaced on 12/04/16. Per IR physician's note, no obstruction found and tube was in the correct position and operating normally. 12/07/16 J tube is clogged, nursing has applied water as well as soda to the line to try and flush the line with no progress at this time. G tube is patent and will use for feeding and medication. May need to consider increased rate of delivery to prevent clogging as well as more frequent flushing should patency of J tube be regained. Dr. Leal informed.12/08/16. J tube remains clogged, RN increased flow rate through G tube to 35 ml/hour. 12/17/16 Due to frequent clogging issues, dietary consult placed for evaluation and suggestions to address this issue. Awaiting their input. //DVT prophylaxis: SCDs/ subq heparin. Discussed with pt's mother (at bedside), RN, and Dr. Tatum. Discharge Planning Per on 11/29: pt has no payor source for rehab, declined by multiple facilities. Reviewed CM notes, placement continues to be an issue. Problem Qualifiers (1) CVA (cerebral vascular accident): (2) DM (diabetes mellitus): Qualified Code: E11.9 - Type 2 diabetes mellitus without complications Javier Harris Jr. December 17, 2016 10:50
[2016-12-17] MEDS: ACETAMINOPHEN/HYDROcodone 325 MG/5 MG TAB PO PRN (11:10)
[2016-12-17] MEDS: PARoxetine HCL SUSP 20 MG/10 ML UDC PEG SCH (18:38)
--- NOTE | 2016-12-17 19:18 | HHI.PR ---
Subjective Remarks 60 YO Male with RF, Encephalopathy On Trach collar Cough on suctioning Awake, some tracking of objects noted Mother at BS Minimal oral secretions no Fever Objective Vital Signs Vital Signs Date Time Temp Pulse Resp B/P Pulse Ox O2 Delivery O2 Flow Rate FiO2 12/17/16 17:52 98 T-piece 6.00 28 12/17/16 17:52 98 T-piece 6.00 28 12/17/16 15:30 96.0 77 20 117/75 98 12/17/16 11:55 97.1 82 20 120/74 97 12/17/16 10:26 99 T-piece 5.00 28 12/17/16 10:26 99 T-piece 5.00 28 12/17/16 07:45 97.6 92 20 124/72 95 12/17/16 05:15 97 Trach Collar 6.00 12/17/16 04:00 97.1 97 20 107/68 83 12/17/16 00:00 97.2 87 22 126/77 98 12/16/16 21:02 97 T-piece 6.00 12/16/16 21:02 100 T-piece 6.00 28 12/16/16 20:00 96.5 98 20 131/85 99 I/O 12/16/16 12/16/16 12/16/16 12/17/16 12/17/16 12/17/16 07:00 15:00 23:00 07:00 15:00 23:00 Intake Total 640 ml Output Total 1175 ml 650 ml 1200 ml 700 ml 550 ml 750 ml Balance -1175 ml -10 ml -1200 ml -700 ml -550 ml -750 ml IV Total 240 ml Tube Feeding 400 ml Output Urine Total 1175 ml 650 ml 1200 ml 700 ml 550 ml 750 ml # Bowel Movements 0 0 1 1 0 1 Objective Remarks GENERAL: Well-nourished, well-developed patient. SKIN: Warm and dry. HEAD: Normocephalic. EYES: No scleral icterus. No injection or drainage. NECK: Supple, trachea midline. No JVD or lymphadenopathy. trach in place CARDIOVASCULAR: Regular rate and rhythm without murmurs, gallops, or rubs. RESPIRATORY: Breath sounds equal bilaterally. No accessory muscle use. GASTROINTESTINAL: Abdomen soft, non-tender, nondistended. MUSCULOSKELETAL: No cyanosis, or edema. BACK: Nontender without obvious deformity. No CVA tenderness. A/P Assessment and Plan Resp Failure, s/p trach Encephalopathy AF DM PLAN: Trach care TF DW Family at BS. Suction prn Cont same treatment plan. Aureliano Grove MD December 17, 2016 19:18
[2016-12-17] MEDS: NYSTATIN 100,000 U/GM PWD 15 GM BTL TOPICAL SCH (21:00)
[2016-12-18] VITALS (8 sets, daily range): BP systolic 98–127; BP diastolic 67–82; PULSE 72–93; RESP 18–22; TEMP 95.6–97.7; O2SAT 94–100
[2016-12-18] MEDS: SODIUM CHLOR 0.9% 1000 ML INJ 1,000 ML IV SCH ×2 (00:38→18:50)
[2016-12-18] MEDS: ACETIC ACID 0.25% SOLN 1000 ML IRR BTL IRRIGATION SCH ×4 (00:39→23:19)
[2016-12-18] MEDS: DILTIAZEM HCL 30 MG TAB PEG SCH ×3 (02:02→23:22)
[2016-12-18] MEDS: FREE WATER TUBE SCH ×7 (04:00→23:31)
[2016-12-18] MEDS: ACETAMINOPHEN/HYDROcodone 325 MG/5 MG TAB PO PRN (05:28)
[2016-12-18] MEDS: HEPARIN SODIUM - SQ 10,000 UNITS/ML VIAL SQ SCH ×3 (05:30→23:21)
[2016-12-18] MEDS: INSULIN ASPART SUPPLEMENTAL SCALE SQ SCH (06:47)
[2016-12-18] MEDS: POTASSIUM CHLORIDE 25 MEQ EFFERVESCENT TAB TUBE SCH (08:04)
[2016-12-18] MEDS: PANTOPRAZOLE SODIUM 40 MG VIAL IV PUSH SCH ×2 (08:04→23:21)
[2016-12-18] MEDS: levETIRAcetam 500 MG/5 ML UDC TUBE SCH ×2 (08:04→23:22)
[2016-12-18] MEDS: ASPIRIN 325 MG TAB TUBE SCH (08:04)
[2016-12-18] MEDS: METOPROLOL TARTRATE 50 MG TAB PO SCH ×2 (08:04→23:22)
[2016-12-18] MEDS: NYSTATIN 100,000 U/GM PWD 15 GM BTL TOPICAL SCH ×2 (08:05→23:19)
[2016-12-18] MEDS: KETOCONAZOLE 2% CREAM 15 GM TOPICAL SCH ×2 (08:05→21:00)
[2016-12-18] MEDS: SODIUM CHLORIDE 0.65% NASAL SPRAY 45 ML BTL NASAL SCH ×2 (08:05→23:23)
[2016-12-18] MEDS: ARTIFICIAL TEARS OPTH SOLN 15 ML BTL EACH EYE SCH ×2 (08:05→23:19)
[2016-12-18] MEDS: BACITRACIN TOP OINT 15 GM TUBE TOP SCH ×2 (08:05→23:20)
--- NOTE | 2016-12-18 12:00 | HHI.PR ---
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 Pt non-verbal and not involved with his own care. Pt has T-piece in place. Pt seemed more attentive today and followed command to turn his head when pt's sister asked him to do so. Per pt's sister, at bedside. Pt reportedly without fever, nausea, vomiting. RN at bedside reporting feeding tube unclogged and remained so over night. She stated pt is now receiving timed flushes to his g-tube. Other than above, no new issues noted or reported. Objective Vitals Vital Signs Date Time Temp Pulse Resp B/P Pulse Ox O2 Delivery O2 Flow Rate FiO2 12/18/16 11:22 98 T-piece 5.00 28 12/18/16 08:00 97.3 85 20 127/74 99 12/18/16 06:48 96.7 93 22 121/80 96 12/18/16 00:00 96.7 80 18 120/82 97 12/17/16 21:00 97 Trach Collar 6.00 28 12/17/16 21:00 74 12/17/16 20:00 95.6 85 17 134/84 98 12/17/16 17:52 98 T-piece 6.00 28 12/17/16 17:52 98 T-piece 6.00 28 12/17/16 15:30 96.0 77 20 117/75 98 12/17/16 11:55 97.1 82 20 120/74 97 I/O 12/17/16 12/17/16 12/17/16 12/18/16 12/18/16 12/18/16 07:00 15:00 23:00 07:00 15:00 23:00 Intake Total 1560 ml Output Total 700 ml 550 ml 750 ml 1400 ml Balance -700 ml -550 ml -750 ml 160 ml IV Total 360 ml Tube Feeding 600 ml Other 600 ml Output Urine Total 700 ml 550 ml 750 ml 1400 ml # Bowel Movements 1 0 1 1 Imaging Ni imaging ordered, pending, or resulted in the past 24 hours. Objective Remarks GENERAL: Pt encountered laying a bed, non-verbal, tracking people in room, glasses worn. Not in acute distress. Appeared more attentive today as evidenced by following commands. SKIN: Warm and dry. tattoo noted on right forearm. HEAD: Normocephalic. EYES: Non-icteric without injection or drainage. Pt noted to have eyes open for much of clinical visit. NECK: Supple, trachea midline. T-tube in place. CARDIOVASCULAR: Regular rate and rhythm without murmurs, gallops, or rubs. RESPIRATORY: Breath sounds equal bilaterally;. No accessory muscle use. Trach tube in place. Bedside monitor indicated oxygen saturation was 97% GASTROINTESTINAL: Abdomen soft, non-tender, nondistended. GJ tube noted, area around insertion was dry and seemingly without leakage. MUSCULOSKELETAL: No cyanosis, or edema. SCD's noted to be on both legs. PSYCHIATRIC: Pt non-verbal, he appeared calm and not in distress. Procedures 01/02/16 PEG placement 01/02/16 tracheostomy 07/22/2016 Wide excision of sacral skin wound, biopsy of the cavity lining and debridement. PEG tube replacement 07/29/16 VAC changes- M-W-F 4/- GJ tube replacement Medications and IVs Current Medications Medications (Trade) Dose Ordered Sig/Junior Route Start Time Stop Time Status Last Admin (NS Flush) 2 ml UNSCH PRN IVF 12/21/15 06:00 09/28/16 21:18 (Keppra Liq) 500 mg Q12HR TUBE 12/27/15 21:00 12/18/16 08:04 (Tylenol 650 Mg/ 20 ml Liq) 650 mg Q6H PRN TUBE 12/30/15 15:15 11/14/16 21:18 (Mycostatin Powder) 1 applic Q12HR TOPICAL 01/08/16 21:00 12/18/16 08:05 (Pill Splitter) 1 ea UNSCH PRN OTHER 01/14/16 08:30 (Acetic Acid 0.25% Irr Btl) 10 ml Q8HR IRRIGATION 02/05/16 16:00 12/18/16 05:36 (Ativan Inj) 0.5 mg Q4H PRN IV PUSH 03/07/16 23:00 (Paxil Liq) 20 mg DAILY@1900 PEG 03/12/16 19:00 12/17/16 18:38 (Levemir Inj) 35 units HS SQ 03/24/16 21:00 Hold 11/15/16 22:06 (Levsin) 0.25 mg Q4H PRN G-TUBE 04/11/16 10:30 08/31/16 05:02 (Zofran Inj) 4 mg Q6HR PRN IV PUSH 04/14/16 19:45 08/10/16 10:16 (Free Water) 200 ml Q4HR TUBE 04/16/16 12:00 12/18/16 08:00 (D50w (Vial) Inj) 25 ml UNSCH PRN IV 04/20/16 12:00 (Glucagon Inj) 1 mg UNSCH PRN IM/SQ 04/20/16 12:00 (K-Lyte Cl Eff) 25 meq DAILY TUBE 05/28/16 09:00 12/18/16 08:04 (Aspirin) 325 mg DAILY TUBE 05/27/16 11:40 12/18/16 08:04 (Heparin Inj) 5,000 units Q8HR SQ 06/11/16 14:00 12/18/16 05:30 (Baciguent Oint) 1 applic BID TOP 07/20/16 10:00 12/18/16 08:05 (Protonix Inj) 40 mg Q12H IV PUSH 07/30/16 10:15 12/18/16 08:04 ([place] Angel [place]) 1 spray BID NASAL 08/01/16 21:00 12/18/16 08:05 (Colace Liq) 100 mg BID PO 08/30/16 21:00 Hold 11/20/16 08:03 (Lactulose Liq) 30 ml DAILY PO 09/02/16 15:30 Hold 11/20/16 08:03 (Tears Naturale Opth Soln) 1 drop BID EACH EYE 09/05/16 21:00 12/18/16 08:05 (Morphine Inj) 1 mg Q24H PRN IV PUSH 09/17/16 14:30 10/22/16 02:00 (Nizoral 2% Cream) 1 applic Q12HR TOPICAL 09/24/16 21:00 12/18/16 08:05 (Senna Liq) 8.8 mg DAILY@1600 PO 09/25/16 17:00 Hold 11/12/16 16:45 (Fleets Enema (Adult)) 133 ml UNSCH PRN DC 09/25/16 16:00 (Dulcolax Supp) 10 mg DAILY PRN RECTAL 09/26/16 15:30 12/08/16 09:17 (Milk Of Magnesia Liq) 30 ml DAILY PRN PO 10/13/16 14:30 12/10/16 14:32 ([place] 5-325 Mg) 1 tab Q6H PRN PO 10/13/16 18:45 12/18/16 05:28 (Flexeril) 5 mg HS PRN PO 10/14/16 14:15 10/22/16 21:17 (Cardizem) 30 mg Q12H PEG 11/20/16 01:00 12/18/16 02:02 (Lopressor) 25 mg BID PO 11/19/16 21:00 12/18/16 08:04 Loperamide HCl 2 mg 2 mg Q6H PRN PO 11/20/16 15:30 11/21/16 02:04 (NS 1000 ml Inj) 1,000 ml @ 30 mls/hr Q24H IV 11/28/16 19:45 12/18/16 00:38 Urinary Catheter: Yes Assessment to: Continue Arevalo insert reason: Prolonged Immobilization Date of Insertion: Oct 12, 2016 A/P Problem List: (1) CVA (cerebral vascular accident) ICD Code: I63.9 Status: Acute (2) A-fib ICD Code: I48.91 Status: Chronic (3) DM (diabetes mellitus) ICD Code: E11.9 Status: Chronic Assessment and Plan 60 year-old male with: //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 Tracks with his eyes. Continue Keppra for seizure prophylaxis. PT/OT signed off as patient is unable to participate. -Need placement. Difficult. Appreciate case management assistance. 12/02/16: Rehab Medicine (Dr. Pickens) saw pt on 12/04/16, rec's on chart. //Chronic respiratory failure -Secondary to CVA. Status post tracheostomy. Continue pulmonary toilet and bronchodilators as needed. Continue trach care, suctioning. Levsin as needed. -Pulmonary currently following . Appreciate assistance. -Pt noted to have oxygenation (per bedside monitor) improvement noted after pt was repositioned and he received a breathing treatment. Oxygen saturation was noted to be 95% on follow-up visit. -12/06/16 pt noted to have Rhonchi for second day, chest x-ray ordered. No acute findings noted. pt without cough and fever. monitor. -12/07/16 Rhonchi not present upon exam. Discussed with Dr. Leal and he advised using Mucomyst should rhonchi recur. Dr. Taylor with pulmonology continues to follow //Atrial fibrillation -Continue rate control with Cardizem and metoprolol. Echocardiogram in November 2015 shows preserved ejection fraction. Coumadin discontinued secondary to bleeding. Rate controlled. Continue aspirin and prophylactic heparin dose. //History of non-Hodgkin's lymphoma - Status post brain biopsy on December 13 by neurosurgery. Pathology consistent with acute infarct without evidence of lymphoma. Oncology has signed all //Diabetes mellitus -Hemoglobin A1c is 7. Continue Levemir. Monitor Accu-Cheks and cover with sliding scale insulin. Overall blood sugar continues well controlled. //Decubitus ulcer stage IV -Continue wound care, twice-daily dressing changes. Wound care recommendations. Continue pressure relief measures including turning and positioning. Patient's family has declined a diverting colostomy. Previous Wound culture growing Klebsiella. on Augmentin. Status post wide excision of sacral skin and biopsy of the cavity lining with debridement on 07/22/16. Continue scheduled [place] every 8 hours. -Continue to monitor for pain. //Gastric ulcer, reflux esophagitis - EGD on 07/30/16 showed gastric ulcers. Appreciate GI recommendations. Continue PPI. H&H stable as of last recheck.. //UTI pseudomonas aeruginosa treated with abx -Resolved. - Repeat Ucx 08/28/16 negative. -Pt seen by ID (Dr. Alvarez) on 11/28/16. //Constipation: -Having regular bowel movements. -on lactulose. Monitor. -Notes of 11/21/16 indicated pt had diarrhea, he was checked for C. Diff and was negative. Imodium to be used. //FEN: Continue Nepro tube feeds with free water flushes. Appreciate dietary assistance. 12/02/16: Per Dr. Leal, IR to be consulted to replace GJ tube. -pt to have his GJ tube replaced later today (12/03/16). Replacement procedure did not occur on 12/03/16 and is being delayed until later today (12/04/16). -GJ tube replaced on 12/04/16. Per IR physician's note, no obstruction found and tube was in the correct position and operating normally. 12/07/16 J tube is clogged, nursing has applied water as well as soda to the line to try and flush the line with no progress at this time. G tube is patent and will use for feeding and medication. May need to consider increased rate of delivery to prevent clogging as well as more frequent flushing should patency of J tube be regained. Dr. Leal informed.12/08/16. J tube remains clogged, RN increased flow rate through G tube to 35 ml/hour. 12/17/16 Due to frequent clogging issues, dietary consult placed for evaluation and suggestions to address this issue. Awaiting their input. 12/18/16: Dr. Tatum has placed order for IR to replace feeding tube. //DVT prophylaxis: SCDs/ subq heparin. Discussed with pt's sister (at bedside), RN (at bedside), and Dr. Tatum. Discharge Planning Per on 11/29: pt has no payor source for rehab, declined by multiple facilities. Reviewed CM notes, placement continues to be an issue. Problem Qualifiers (1) CVA (cerebral vascular accident): (2) DM (diabetes mellitus): Qualified Code: E11.9 - Type 2 diabetes mellitus without complications Javier Harris Jr. December 18, 2016 12:00
[2016-12-18] MEDS: PARoxetine HCL SUSP 20 MG/10 ML UDC PEG SCH (18:50)
--- NOTE | 2016-12-18 20:40 | HHI.PR ---
Subjective Remarks 60 YO Male with RF, Encephalopathy On Trach collar Cough on suctioning Awake, some tracking of objects noted Minimal oral secretions no Fever Objective Vital Signs Vital Signs Date Time Temp Pulse Resp B/P Pulse Ox O2 Delivery O2 Flow Rate FiO2 12/18/16 15:40 96.2 72 20 98/67 100 12/18/16 11:45 95.6 74 20 103/67 94 12/18/16 11:22 98 T-piece 5.00 28 12/18/16 08:00 97.3 85 20 127/74 99 12/18/16 06:48 96.7 93 22 121/80 96 12/18/16 00:00 96.7 80 18 120/82 97 12/17/16 21:00 97 Trach Collar 6.00 28 12/17/16 21:00 74 I/O 12/17/16 12/17/16 12/17/16 12/18/16 12/18/16 12/18/16 07:00 15:00 23:00 07:00 15:00 23:00 Intake Total 1560 ml Output Total 700 ml 550 ml 750 ml 1400 ml 950 ml 350 ml Balance -700 ml -550 ml -750 ml 160 ml -950 ml -350 ml IV Total 360 ml Tube Feeding 600 ml Other 600 ml Output Urine Total 700 ml 550 ml 750 ml 1400 ml 950 ml 350 ml # Bowel Movements 1 0 1 1 Objective Remarks GENERAL: Well-nourished, well-developed patient. SKIN: Warm and dry. HEAD: Normocephalic. EYES: No scleral icterus. No injection or drainage. NECK: Supple, trachea midline. No JVD or lymphadenopathy. trach in place CARDIOVASCULAR: Regular rate and rhythm without murmurs, gallops, or rubs. RESPIRATORY: Breath sounds equal bilaterally. No accessory muscle use. GASTROINTESTINAL: Abdomen soft, non-tender, nondistended. MUSCULOSKELETAL: No cyanosis, or edema. BACK: Nontender without obvious deformity. No CVA tenderness. A/P Assessment and Plan Resp Failure, s/p trach Encephalopathy AF DM PLAN: Trach care TF DW Family at BS. Suction prn Cont same treatment plan. Aureliano Grove MD December 18, 2016 20:40
[2016-12-19] VITALS (9 sets, daily range): BP systolic 102–141; BP diastolic 67–88; PULSE 79–102; RESP 18–20; TEMP 96.9–98.6; O2SAT 95–100
[2016-12-19] MEDS: FREE WATER TUBE SCH ×6 (04:00→23:15)
[2016-12-19] MEDS: INSULIN ASPART SUPPLEMENTAL SCALE SQ SCH (07:00)
[2016-12-19] MEDS: HEPARIN SODIUM - SQ 10,000 UNITS/ML VIAL SQ SCH ×3 (07:14→20:44)
[2016-12-19] MEDS: ACETIC ACID 0.25% SOLN 1000 ML IRR BTL IRRIGATION SCH ×3 (07:14→20:44)
[2016-12-19] MEDS: SODIUM CHLORIDE 0.65% NASAL SPRAY 45 ML BTL NASAL SCH ×2 (08:07→20:43)
[2016-12-19] MEDS: ARTIFICIAL TEARS OPTH SOLN 15 ML BTL EACH EYE SCH ×2 (08:07→20:43)
[2016-12-19] MEDS: POTASSIUM CHLORIDE 25 MEQ EFFERVESCENT TAB TUBE SCH (08:07)
[2016-12-19] MEDS: METOPROLOL TARTRATE 50 MG TAB PO SCH ×2 (08:07→20:43)
[2016-12-19] MEDS: BACITRACIN TOP OINT 15 GM TUBE TOP SCH ×2 (08:08→20:43)
[2016-12-19] MEDS: levETIRAcetam 500 MG/5 ML UDC TUBE SCH ×2 (08:08→20:44)
[2016-12-19] MEDS: PANTOPRAZOLE SODIUM 40 MG VIAL IV PUSH SCH ×2 (08:08→23:15)
[2016-12-19] MEDS: ASPIRIN 325 MG TAB TUBE SCH (08:08)
[2016-12-19] MEDS: NYSTATIN 100,000 U/GM PWD 15 GM BTL TOPICAL SCH ×2 (08:08→20:43)
[2016-12-19] MEDS: KETOCONAZOLE 2% CREAM 15 GM TOPICAL SCH ×2 (08:08→20:44)
--- NOTE | 2016-12-19 10:21 | HHI.PR ---
Subjective Remarks Follow up CVA to brainstem and bilateral occipital lobe infarcts. Patient seen and examined today. Patient lying in bed in no apparent distress. Sister at bedside. Spoke with RN at bedside, no acute events overnight. Patient is nonverbal, does not follow commands, occasionally tracks with eyes. T-piece in place. Afebrile. Positive BM. VSS. Objective Vitals Vital Signs Date Time Temp Pulse Resp B/P Pulse Ox O2 Delivery O2 Flow Rate FiO2 12/19/16 09:00 99 T-piece 6.00 28 12/19/16 09:00 98 T-piece 6.00 28 12/19/16 08:00 97.8 102 19 141/84 95 12/19/16 06:20 Room Air 3.00 Nasal Cannula 12/19/16 05:10 98.6 100 18 125/77 100 12/19/16 00:32 98.1 79 18 120/76 98 12/18/16 22:02 99 T-piece 5.00 28 12/18/16 20:58 97.7 82 18 122/82 100 12/18/16 15:40 96.2 72 20 98/67 100 12/18/16 11:45 95.6 74 20 103/67 94 12/18/16 11:22 98 T-piece 5.00 28 I/O 12/18/16 12/18/16 12/18/16 12/19/16 12/19/16 12/19/16 07:00 15:00 23:00 07:00 15:00 23:00 Intake Total 1560 ml 2050 ml Output Total 1400 ml 950 ml 350 ml 450 ml Balance 160 ml -950 ml -350 ml 1600 ml Intake Oral 400 ml IV Total 360 ml Tube Feeding 600 ml 800 ml Tube Irrigant 800 ml Other 600 ml 50 ml Output Urine Total 1400 ml 950 ml 350 ml 450 ml # Bowel Movements 1 Imaging Last Impressions Chest X-Ray 12/06/16 0000 Signed Impressions: Service Date/Time: Tuesday, December 06, 2016 11:07 - CONCLUSION: 1. Hypoinflation with minimal bibasilar atelectatic changes. 2. No confluent infiltrate or effusion. Bobby Gray MD Tube Check 12/04/16 0000 Signed Impressions: Service Date/Time: Sunday, December 04, 2016 17:58 - CONCLUSION: Uncomplicated tube injection as above. the tube is in good position and functions normally. Moises Ramírez MD Tube Change 11/18/16 0000 Signed Impressions: Service Date/Time: Friday, November 18, 2016 17:38 - CONCLUSION: Uncomplicated gastrojejunostomy tube exchange as above. Jonel Jones Jr., MD Abdomen X-Ray 08/31/16 0000 Signed Impressions: Service Date/Time: Wednesday, August 31, 2016 16:36 - CONCLUSION: 1. No acute findings. Mild constipation. Durga Dotson MD Abdomen/Pelvis CT 04/12/16 0000 Signed Impressions: Service Date/Time: Tuesday, April 12, 2016 20:52 - CONCLUSION: 1. 6.4 cm necrotic mass or abscess in the soft tissues posteriorly just below the sacrum associated with some bony destructive change of the lower most sacrum and coccyx with inflammatory changes extending into the ischiorectal fossa and into the presacral retroperitoneum predominantly on the left side. There is associated fairly marked mural thickening of the anal verge and rectum. 2. There is gastrostomy and Arevalo catheter present. Stable abdominal aortic aneurysm. Durga Dotson MD Head Magnetic Resonance Angiography 03/05/16 0000 Signed Impressions: Service Date/Time: Saturday, March 05, 2016 09:26 - CONCLUSION: Persistent high-grade subtotal occlusive stenotic lesions in the distal right vertebral artery and proximal basilar artery with significant improvement in flow and recanalization following initial presentation of thrombosis. Stable interstitial circulation without significant stenosis. 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 There is decreasing restricted diffusion and increasing loss of volume characteristic of a subacute to chronic infarct. No evidence of acute infarct, acute hemorrhage mass or edema. Ernesto Kulkarni MD Head CT 01/16/16 0000 Signed Impressions: Service Date/Time: Saturday, January 16, 2016 10:51 - CONCLUSION: No extensive low density in the brainstem colin more prominent in the right the left extending into the right middle cerebellar peduncle consistent with brainstem infarct nonhemorrhagic acute Wellington West MD Neck Magnetic Resonance Angiography 12/22/15 1445 Signed Impressions: Service Date/Time: Tuesday, December 22, 2015 09:22 - CONCLUSION: Variant origin of the left vertebral artery from the aortic arch. No evidence of carotid stenosis. Glen Zamora MD Head/Brain Mag Res Venography 12/22/15 0000 Signed Impressions: Service Date/Time: Tuesday, December 22, 2015 09:22 - CONCLUSION: Normal MRV. Jonel Jones Jr., MD Objective Remarks GENERAL: Non-verbal, tracking people in room, glasses worn. Not in acute distress. Appeared more attentive today as evidenced by following commands. SKIN: Warm and dry. HEAD: Normocephalic. EYES: Non-icteric without injection or drainage. Pt noted to have eyes open for much of clinical visit. NECK: Supple, trachea midline. T-tube in place. CARDIOVASCULAR: Regular rate and rhythm. No murmur appreciated. RESPIRATORY: Breath sounds equal bilaterally. No accessory muscle use. Trach tube in place. Bedside monitor indicated oxygen saturation was 99% GASTROINTESTINAL: Abdomen soft, non-tender, nondistended. GJ tube noted, area around insertion was dry, dressing intact. MUSCULOSKELETAL: No cyanosis, or edema. PSYCHIATRIC: Pt non-verbal, he appeared calm and not in distress. Procedures 01/02/16 PEG placement 01/02/16 tracheostomy 07/22/2016 Wide excision of sacral skin wound, biopsy of the cavity lining and debridement. 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 Intermittently tracks with eyes. Sister at bedside. - Continue Keppra for seizure prophylaxis. - PT/OT signed off as patient is unable to participate. - No placement available. Appreciate case management assistance. Last CM note indicates continued difficult placement and has medicaid with no accepting facility. Rehab Medicine (Dr. Pickens) following. Chronic respiratory failure secondary to CVA - Status post tracheostomy. Continue pulmonary toilet and bronchodilators as needed. Continue trach care, suctioning. Levsin as needed. - Pulmonary currently following, appreciate assistance. Atrial fibrillation, controlled - Continue rate control with Cardizem and metoprolol. - Echocardiogram in November 2015 shows preserved ejection fraction. Coumadin discontinued secondary to bleeding. - Continue aspirin and prophylactic heparin dose. History of non-Hodgkin's lymphoma - Status post brain biopsy on December 13 by neurosurgery. Pathology consistent with acute infarct without evidence of lymphoma. Oncology has signed off. Diabetes mellitus Type 2 - Hemoglobin A1c is 7. Continue Levemir. Monitor Accu-Cheks and cover with sliding scale insulin. Overall blood sugar continues well controlled. Decubitus ulcer stage IV - Continue wound care, twice-daily dressing changes. Wound care recommendations last updated 12/12/16. Continue pressure relief measures including turning and positioning. Patient's family has declined a diverting colostomy. Previous Wound culture growing Klebsiella and Enterococcus Faecalis. Previously on Augmentin. Status post wide excision of sacral skin and biopsy of the cavity lining with debridement on 07/22/16. - Continue to monitor for pain. Gastric ulcer, reflux esophagitis - EGD on 07/30/16 showed gastric ulcers. Continue PPI. H&H stable, recheck CBC tomorrow am. UTI pseudomonas aeruginosa treated with abx - Resolved. Repeat Ucx 08/28/16 negative. Patient seen by ID (Dr. Alvarez) on 11/28/16. Constipation: - Having regular bowel movements. - Notes of 11/21/16 indicated pt had diarrhea, C. Diff negative. Imodium PRN. Severe malnutrition - Dietary last recommendations on 12/17/16. Continue Glucerna 1.0 @ 85 ml/hr to provide 2040 kcals, 85 gms protein and 1740 mls of free water. Water flushes of 30 mls before and after medication administration should be given. - GJ tube replaced on 12/04/16. DVT prophylaxis: SCDs. Heparin 5,000 units sq Q8hr. Discussed with pt's sister, RN, and Dr. Tatum. Problem Qualifiers (1) CVA (cerebral vascular accident): (2) DM (diabetes mellitus): Qualified Code: E11.9 - Type 2 diabetes mellitus without complications Haley Seymour Dec 19, 2016 10:21
[2016-12-19] MEDS: DILTIAZEM HCL 30 MG TAB PEG SCH (12:04)
[2016-12-19] MEDS: MAGNESIUM HYDROXIDE SUSP 30 ML CUP PO PRN (12:33)
[2016-12-19] MEDS: SODIUM CHLOR 0.9% 1000 ML INJ 1,000 ML IV SCH (18:02)
[2016-12-19] MEDS: PARoxetine HCL SUSP 20 MG/10 ML UDC PEG SCH (18:02)
--- NOTE | 2016-12-19 19:56 | HHI.PR ---
Subjective Remarks 60 YO Male with RF, Encephalopathy On Trach collar Cough on suctioning Awake, some tracking of objects noted Minimal oral secretions Objective Vital Signs Vital Signs Date Time Temp Pulse Resp B/P Pulse Ox O2 Delivery O2 Flow Rate FiO2 12/19/16 16:00 97.2 86 19 141/80 98 12/19/16 12:00 96.9 86 19 102/67 96 12/19/16 09:00 99 T-piece 6.00 28 12/19/16 09:00 98 T-piece 6.00 28 12/19/16 08:00 97.8 102 19 141/84 95 12/19/16 06:20 Room Air 3.00 Nasal Cannula 12/19/16 05:10 98.6 100 18 125/77 100 12/19/16 00:32 98.1 79 18 120/76 98 12/18/16 22:02 99 T-piece 5.00 28 12/18/16 20:58 97.7 82 18 122/82 100 I/O 12/18/16 12/18/16 12/18/16 12/19/16 12/19/16 12/19/16 07:00 15:00 23:00 07:00 15:00 23:00 Intake Total 1560 ml 2050 ml Output Total 1400 ml 950 ml 350 ml 450 ml 1300 ml Balance 160 ml -950 ml -350 ml 1600 ml -1300 ml Intake Oral 400 ml IV Total 360 ml Tube Feeding 600 ml 800 ml Tube Irrigant 800 ml Other 600 ml 50 ml Output Urine Total 1400 ml 950 ml 350 ml 450 ml 1300 ml # Bowel Movements 1 Objective Remarks GENERAL: Well-nourished, well-developed patient. SKIN: Warm and dry. HEAD: Normocephalic. EYES: No scleral icterus. No injection or drainage. NECK: Supple, trachea midline. No JVD or lymphadenopathy. trach in place CARDIOVASCULAR: Regular rate and rhythm without murmurs, gallops, or rubs. RESPIRATORY: Breath sounds equal bilaterally. No accessory muscle use. GASTROINTESTINAL: Abdomen soft, non-tender, nondistended. MUSCULOSKELETAL: No cyanosis, or edema. BACK: Nontender without obvious deformity. No CVA tenderness. A/P Assessment and Plan Resp Failure, s/p trach Encephalopathy AF DM PLAN: Trach care TF DW Family at BS. Suction prn Cont same treatment plan. Aureliano Grove MD Dec 19, 2016 19:56
[2016-12-20] VITALS (10 sets, daily range): BP systolic 113–121; BP diastolic 69–82; PULSE 79–100; RESP 16–22; TEMP 96–98.9; O2SAT 91–100
[2016-12-20] MEDS: DILTIAZEM HCL 30 MG TAB PEG SCH ×3 (01:00→13:00)
[2016-12-20] MEDS: FREE WATER TUBE SCH ×5 (04:00→20:00)
[2016-12-20] MEDS: HEPARIN SODIUM - SQ 10,000 UNITS/ML VIAL SQ SCH ×3 (06:00→21:27)
[2016-12-20] MEDS: ACETIC ACID 0.25% SOLN 1000 ML IRR BTL IRRIGATION SCH ×3 (06:00→21:30)
[2016-12-20] MEDS: INSULIN ASPART SUPPLEMENTAL SCALE SQ SCH (06:14)
[2016-12-20] MEDS: POTASSIUM CHLORIDE 25 MEQ EFFERVESCENT TAB TUBE SCH (09:00)
[2016-12-20] MEDS: BACITRACIN TOP OINT 15 GM TUBE TOP SCH ×2 (09:00→21:30)
[2016-12-20] MEDS: ASPIRIN 325 MG TAB TUBE SCH (09:00)
[2016-12-20] MEDS: ARTIFICIAL TEARS OPTH SOLN 15 ML BTL EACH EYE SCH ×2 (09:00→21:29)
[2016-12-20] MEDS: SODIUM CHLORIDE 0.65% NASAL SPRAY 45 ML BTL NASAL SCH ×2 (09:00→21:29)
[2016-12-20] MEDS: KETOCONAZOLE 2% CREAM 15 GM TOPICAL SCH ×2 (09:00→21:00)
[2016-12-20] MEDS: METOPROLOL TARTRATE 50 MG TAB PO SCH ×2 (09:00→21:27)
[2016-12-20] MEDS: levETIRAcetam 500 MG/5 ML UDC TUBE SCH ×2 (09:00→21:26)
[2016-12-20] MEDS: NYSTATIN 100,000 U/GM PWD 15 GM BTL TOPICAL SCH ×2 (09:00→21:29)
[2016-12-20 09:07] LABS: AUTOMATED NEUTROPHIL # 2.9 TH/MM3 (1.8-7.7); BASOPHIL % 0.5 % (0.0-2.0); EOSINOPHIL # 0.2 TH/MM3 (0-0.4); EOSINOPHIL % 3.1 % (0.0-4.0); HEMATOCRIT 33.5 % (39.0-51.0); HEMO FLAGS DIFF FINAL; LYMPH % 27.6 % (9.0-44.0); LYMPHOCYTE # 1.3 TH/MM3 (1.0-4.8); MEAN CELL VOLUME 72.9 FL (80.0-100.0); MEAN CORPUSCULAR HEMOGLOBIN 22.3 PG (27.0-34.0); MEAN CORPUSCULAR HGB CONC 30.5 % (32.0-36.0); MONO % 7.3 % (0.0-8.0); NEUT % 61.5 % (16.0-70.0); PLATELET COUNT 225 TH/MM3 (150-450); RED BLOOD COUNT 4.59 MIL/MM3 (4.50-5.90); RED CELL DISTRIBUTION WIDTH 19.7 % (11.6-17.2); WHITE BLOOD COUNT 4.8 TH/MM3 (4.0-11.0)
[2016-12-20 09:19] LABS: BICARBONATE 23.5 MEQ/L (21.0-32.0); POTASSIUM 3.9 MEQ/L (3.5-5.1)
[2016-12-20] MEDS: PANTOPRAZOLE SODIUM 40 MG VIAL IV PUSH SCH ×2 (10:15→21:27)
--- NOTE | 2016-12-20 14:28 | HHI.PR ---
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 Patient seen and examined today. Patient lying in bed in no apparent distress. Family member at the bedside. Patient appears comfortable in no distress. No issues overnight. Plan for change of PEG tube today. Patient continues to be nonverbal, does not follow commands, occasional tracking. Objective Vitals Vital Signs Date Time Temp Pulse Resp B/P Pulse Ox O2 Delivery O2 Flow Rate FiO2 12/20/16 12:00 96.2 82 16 113/74 93 12/20/16 08:40 96 T-piece 6.00 28 12/20/16 08:40 96 T-piece 6.00 28 12/20/16 08:00 97.7 92 18 119/77 91 12/20/16 06:14 97 T-Piece 28 12/20/16 04:00 98.9 80 22 120/82 98 12/20/16 02:45 96 T-Piece 28 12/20/16 01:59 79 12/20/16 00:00 98.7 80 18 121/69 98 12/19/16 21:20 98 T-piece 6.00 28 12/19/16 21:20 99 T-piece 6.00 28 12/19/16 20:30 99 T-Piece 28 12/19/16 20:00 88 12/19/16 19:56 97.2 101 20 141/88 98 12/19/16 16:00 97.2 86 19 141/80 98 I/O 12/19/16 12/19/16 12/19/16 12/20/16 12/20/16 12/20/16 07:00 15:00 23:00 07:00 15:00 23:00 Intake Total 2050 ml 688 ml 499 ml Output Total 450 ml 1300 ml 200 ml Balance 1600 ml -612 ml 299 ml Intake Oral 400 ml IV Total 219 ml Tube Feeding 800 ml 488 ml Tube Irrigant 800 ml Other 50 ml 200 ml 280 ml Output Urine Total 450 ml 1300 ml 200 ml # Bowel Movements 1 Result Diagram: 12/20/1622 12/20/16821 Imaging Last Impressions Chest X-Ray 12/06/16 0000 Signed Impressions: Service Date/Time: Tuesday, December 06, 2016 11:07 - CONCLUSION: 1. Hypoinflation with minimal bibasilar atelectatic changes. 2. No confluent infiltrate or effusion. Bobby Gray MD Tube Check 12/04/16 0000 Signed Impressions: Service Date/Time: Sunday, December 04, 2016 17:58 - CONCLUSION: Uncomplicated tube injection as above. the tube is in good position and functions normally. Moises Ramírez MD Tube Change 11/18/16 0000 Signed Impressions: Service Date/Time: Friday, November 18, 2016 17:38 - CONCLUSION: Uncomplicated gastrojejunostomy tube exchange as above. Jonel Jones Jr., MD Abdomen X-Ray 08/31/16 0000 Signed Impressions: Service Date/Time: Wednesday, August 31, 2016 16:36 - CONCLUSION: 1. No acute findings. Mild constipation. Durga Dotson MD Abdomen/Pelvis CT 04/12/16 0000 Signed Impressions: Service Date/Time: Tuesday, April 12, 2016 20:52 - CONCLUSION: 1. 6.4 cm necrotic mass or abscess in the soft tissues posteriorly just below the sacrum associated with some bony destructive change of the lower most sacrum and coccyx with inflammatory changes extending into the ischiorectal fossa and into the presacral retroperitoneum predominantly on the left side. There is associated fairly marked mural thickening of the anal verge and rectum. 2. There is gastrostomy and Arevalo catheter present. Stable abdominal aortic aneurysm. Durga Dotson MD Head Magnetic Resonance Angiography 03/05/16 0000 Signed Impressions: Service Date/Time: Saturday, March 05, 2016 09:26 - CONCLUSION: Persistent high-grade subtotal occlusive stenotic lesions in the distal right vertebral artery and proximal basilar artery with significant improvement in flow and recanalization following initial presentation of thrombosis. Stable interstitial circulation without significant stenosis. 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 There is decreasing restricted diffusion and increasing loss of volume characteristic of a subacute to chronic infarct. No evidence of acute infarct, acute hemorrhage mass or edema. Ernesto Kulkarni MD Head CT 01/16/16 0000 Signed Impressions: Service Date/Time: Saturday, January 16, 2016 10:51 - CONCLUSION: No extensive low density in the brainstem cloin more prominent in the right the left extending into the right middle cerebellar peduncle consistent with brainstem infarct nonhemorrhagic acute Wellington West MD Neck Magnetic Resonance Angiography 12/22/15 1445 Signed Impressions: Service Date/Time: Tuesday, December 22, 2015 09:22 - CONCLUSION: Variant origin of the left vertebral artery from the aortic arch. No evidence of carotid stenosis. Glen Zamora MD Head/Brain Mag Res Venography 12/22/15 0000 Signed Impressions: Service Date/Time: Tuesday, December 22, 2015 09:22 - CONCLUSION: Normal MRV. Jonel Jones Jr., MD Objective Remarks GENERAL: This is a well-nourished, well-developed patient, in no apparent distress. SKIN: Warm and dry. HEENT: Normocephalic. Pupils nonicteric. Nose without bleeding. Airway patent. NECK: Trachea midline. No JVD. CARDIOVASCULAR: Regular rate and rhythm without murmurs, gallops, or rubs. RESPIRATORY: No wheezes, rales, or rhonchi. Diminished bases. GASTROINTESTINAL: Abdomen soft, non-tender, nondistended. Bowel Sounds hypoactive. GJ tube in place. MUSCULOSKELETAL: Extremities without clubbing, cyanosis, or edema. NEUROLOGICAL: Awake and alert. Not following commands. Nonverbal. Procedures 01/02/16 PEG placement 01/02/16 tracheostomy 07/22/2016 Wide excision of sacral skin wound, biopsy of the cavity lining and debridement. PEG tube replacement 07/29/16 VAC changes- M-W-F 4/5- GJ tube replacement Date of Insertion: Oct 12, 2016 A/P Problem List: (1) CVA (cerebral vascular accident) ICD Code: I63.9 Status: Acute (2) A-fib ICD Code: I48.91 Status: Chronic (3) DM (diabetes mellitus) ICD Code: E11.9 Status: Chronic Assessment and Plan 60 year-old male with past medical history of paroxysmal A. fib, hypertension, stage III non-Hodgkin's lymphoma status post chemotherapy who came into the hospital with altered mental status. 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 Intermittently tracks with eyes. Sister at bedside. - Continue Keppra for seizure prophylaxis. - PT/OT signed off as patient is unable to participate. - No placement available. Appreciate case management assistance. Last CM note indicates continued difficult placement and has medicaid with no accepting facility. Rehab Medicine (Dr. Pickens) following. Chronic respiratory failure secondary to CVA - Status post tracheostomy. Continue pulmonary toilet and bronchodilators as needed. Continue trach care, suctioning. Levsin as needed. - Pulmonary currently following, appreciate assistance. Atrial fibrillation, controlled - Continue rate control with Cardizem and metoprolol. - Echocardiogram in November 2015 shows preserved ejection fraction. Coumadin discontinued secondary to bleeding. - Continue aspirin and prophylactic heparin dose. History of non-Hodgkin's lymphoma - Status post brain biopsy on December 13 by neurosurgery. Pathology consistent with acute infarct without evidence of lymphoma. Oncology has signed off. Diabetes mellitus Type 2 - Hemoglobin A1c is 7. Continue Levemir. Monitor Accu-Cheks and cover with sliding scale insulin. Overall blood sugar continues well controlled. Decubitus ulcer stage IV - Continue wound care, twice-daily dressing changes. Wound care recommendations last updated 12/12/16. Continue pressure relief measures including turning and positioning. Patient's family has declined a diverting colostomy. Previous Wound culture growing Klebsiella and Enterococcus Faecalis. Previously on Augmentin. Status post wide excision of sacral skin and biopsy of the cavity lining with debridement on 07/22/16. - Continue to monitor for pain. Gastric ulcer, reflux esophagitis - EGD on 07/30/16 showed gastric ulcers. Continue PPI. H&H stable, recheck CBC tomorrow am. UTI pseudomonas aeruginosa treated with abx - Resolved. Repeat Ucx 08/28/16 negative. Patient seen by ID (Dr. Alvarez) on 11/28/16. Constipation: - Notes of 11/21/16 indicated pt had diarrhea, C. Diff negative. Imodium PRN. - Today family member states patient was having a hard time having a bowel movement yesterday. As per nursing, patient had bowel movement last night. No diarrhea noted. Will restart Colace twice a day. Severe malnutrition - Dietary last recommendations on 12/17/16. Continue Glucerna 1.0 @ 85 ml/hr to provide 2040 kcals, 85 gms protein and 1740 mls of free water. Water flushes of 30 mls before and after medication administration should be given. - GJ tube plan to be replaced today DVT prophylaxis: SCDs. Heparin 5,000 units sq Q8hr. Discussed with pt's sister, RN, and Dr. Tatum. Discharge Planning Case management involved with discharge planning. As of 12/17/16, CM note patient has Medicaid without any accepting facility. Difficult placement. Problem Qualifiers (1) CVA (cerebral vascular accident): (2) DM (diabetes mellitus): Qualified Code: E11.9 - Type 2 diabetes mellitus without complications Kurt Rosa Dec 20, 2016 14:28
--- NOTE | 2016-12-20 16:29 | PD.RAD ---
Post Procedure Progress Note Pre Procedure Diagnosis: (1) Feeding tube dysfunction Post Procedure Diagnosis: (1) Feeding tube dysfunction Procedure Date: Dec 20, 2016 Supervising Radiologist: Scott Griffin Proceduralist/Assist: RT Servando(R)(CV) Anesthesia: Local Plan of Activity Patient to Unit: Nursing Unit Patient Condition: Good See PACS Report for procedural detail/treatment Scott Griffin MD Dec 20, 2016 16:29
--- NOTE | 2016-12-20 16:32 | RADRPT ---
EXAM DATE/TIME: 12/20/2016 14:13 [facility] COMPARISON: CHANGE OF GJ-TUBE CATHETER, November 18, 2016, 17:38. INDICATIONS : Patient with clogged TJ tube. MEDICAL HISTORY : 1. CVA 2. HTN 3. A fib 4. non Hodgkin lymphoma 5. DM 6. gastric ulceres 7. esophagitis 8. sacral ulcers SURGICAL HISTORY : 1. Sacral biopsy 2. right occipital Bertrand hole biopsy 3. Lt arm surgery 4. GJ tube 5. tracheostomy ENCOUNTER: Subsequent ACUITY: 7 - 11 months PAIN SCORE: 0/10 FLUORO TIME: 0.50 minutes IMAGE SERIES: 0 CONTRAST: 15 cc Omnipaque (iohexol) 350 DEVICE(S): 1.) 22 [place] Transgastric tube PROCEDURE : 1. Fluoroscopically guided gastrojejunostomy tube exchange. 2. Conscious sedation with continuous EKG and oximetry monitoring. The risks, benefits and alternatives to the procedure were explained and verbal and written consent w as obtained. The site was prepped in sterile fashion. Full sterile technique was used, including ca p, mask, sterile gloves and gown and a large sterile sheet. Hand hygiene and 2% chlorhexidine and/or betadine/alcohol prep was utilized per protocol for cutaneous antisepsis. The skin and subcutaneous tissues were infiltrated with local anesthetic solution. With fluoroscopic guidance a guidewire was passed through the previous gastrojejunostomy tube and a f resh tube was placed over the guidewire. The balloon was inflated with appropriate volume of saline. Injection of positive contrast demonstrates good position of the gastric and jejunal lumens of the tube. Conscious sedation was performed with the prescribed dosages and duration as above in the presence of an independent trained radiology nurse to assist in the monitoring of the patient. EKG and oximetry remained stable throughout the procedure. The patient tolerated the procedure well and there were n o complications. The patient was sent to post anesthesia recovery in stable condition. CONCLUSION: Uncomplicated gastrojejunostomy tube exchange as above. Scott Griffin MD on December 20, 2016 at 16:30 Board Certified Radiologist. This report was verified electronically.
--- NOTE | 2016-12-20 18:34 | HHI.PR ---
Subjective Remarks 60 YO Male with RF, Encephalopathy On Trach collar Cough on suctioning Awake, some tracking of objects noted Minimal oral secretions Had G-J tube replaced Objective Vital Signs Vital Signs Date Time Temp Pulse Resp B/P Pulse Ox O2 Delivery O2 Flow Rate FiO2 12/20/16 16:30 96.0 90 18 119/78 99 12/20/16 12:00 96.2 82 16 113/74 93 12/20/16 08:40 96 T-piece 6.00 28 12/20/16 08:40 96 T-piece 6.00 28 12/20/16 08:00 97.7 92 18 119/77 91 12/20/16 06:14 97 T-Piece 12/20/16 04:00 98.9 80 22 120/82 98 12/20/16 02:45 96 T-Piece 28 12/20/16 01:59 79 12/20/16 00:00 98.7 80 18 121/69 98 12/19/16 21:20 98 T-piece 6.00 12/19/16 21:20 99 T-piece 6.00 12/19/16 20:30 99 T-Piece 28 12/19/16 20:00 88 12/19/16 19:56 97.2 101 20 141/88 98 I/O 12/19/16 12/19/16 12/19/16 12/20/16 12/20/16 12/20/16 07:00 15:00 23:00 07:00 15:00 23:00 Intake Total 2050 ml 688 ml 499 ml 0 ml Output Total 450 ml 1300 ml 200 ml 500 ml Balance 1600 ml -612 ml 299 ml -500 ml Intake Oral 400 ml 0 ml IV Total 219 ml Tube Feeding 800 ml 488 ml Tube Irrigant 800 ml Other 50 ml 200 ml 280 ml Output Urine Total 450 ml 1300 ml 200 ml 500 ml # Bowel Movements 1 0 Result Diagram: 12/20/1682112/20/16821 Objective Remarks GENERAL: Well-nourished, well-developed patient. SKIN: Warm and dry. HEAD: Normocephalic. EYES: No scleral icterus. No injection or drainage. NECK: Supple, trachea midline. No JVD or lymphadenopathy. trach in place CARDIOVASCULAR: Regular rate and rhythm without murmurs, gallops, or rubs. RESPIRATORY: Breath sounds equal bilaterally. No accessory muscle use. GASTROINTESTINAL: Abdomen soft, non-tender, nondistended. MUSCULOSKELETAL: No cyanosis, or edema. BACK: Nontender without obvious deformity. No CVA tenderness. A/P Assessment and Plan Resp Failure, s/p trach Encephalopathy AF DM PLAN: Trach care DW Family at . Suction prn resume TF Aureliano Grove MD Dec 20, 2016 18:34
[2016-12-20] MEDS: PARoxetine HCL SUSP 20 MG/10 ML UDC PEG SCH (19:00)
[2016-12-20] MEDS: SODIUM CHLOR 0.9% 1000 ML INJ 1,000 ML IV SCH (21:55)
[2016-12-21] VITALS (11 sets, daily range): BP systolic 100–122; BP diastolic 69–85; PULSE 76–93; RESP 18–20; TEMP 97.3–98; O2SAT 96–100
[2016-12-21] MEDS: DILTIAZEM HCL 30 MG TAB PEG SCH ×2 (00:47→13:00)
[2016-12-21] MEDS: FREE WATER TUBE SCH ×6 (04:00→20:00)
[2016-12-21] MEDS: ACETIC ACID 0.25% SOLN 1000 ML IRR BTL IRRIGATION SCH ×3 (05:42→21:11)
[2016-12-21] MEDS: HEPARIN SODIUM - SQ 10,000 UNITS/ML VIAL SQ SCH ×3 (05:43→21:07)
[2016-12-21] MEDS: INSULIN ASPART SUPPLEMENTAL SCALE SQ SCH (07:00)
[2016-12-21] MEDS: PANTOPRAZOLE SODIUM 40 MG VIAL IV PUSH SCH ×2 (08:36→21:17)
[2016-12-21] MEDS: ASPIRIN 325 MG TAB TUBE SCH (08:36)
[2016-12-21] MEDS: levETIRAcetam 500 MG/5 ML UDC TUBE SCH ×2 (08:36→21:07)
[2016-12-21] MEDS: POTASSIUM CHLORIDE 25 MEQ EFFERVESCENT TAB TUBE SCH (08:37)
[2016-12-21] MEDS: BACITRACIN TOP OINT 15 GM TUBE TOP SCH ×2 (08:37→21:10)
[2016-12-21] MEDS: ARTIFICIAL TEARS OPTH SOLN 15 ML BTL EACH EYE SCH ×2 (08:37→21:11)
[2016-12-21] MEDS: METOPROLOL TARTRATE 50 MG TAB PO SCH ×2 (08:38→21:07)
[2016-12-21] MEDS: SODIUM CHLORIDE 0.65% NASAL SPRAY 45 ML BTL NASAL SCH ×2 (08:38→21:00)
[2016-12-21] MEDS: KETOCONAZOLE 2% CREAM 15 GM TOPICAL SCH ×2 (09:00→21:00)
[2016-12-21] MEDS: DOCUSATE SODIUM 100 MG/10 ML UDC PO SCH ×2 (09:00→21:07)
[2016-12-21] MEDS: NYSTATIN 100,000 U/GM PWD 15 GM BTL TOPICAL SCH ×2 (09:00→21:09)
--- NOTE | 2016-12-21 13:56 | HHI.PR ---
Subjective Remarks 60 YO Male with RF, Encephalopathy On Trach collar Cough on suctioning Awake, some tracking of objects noted Minimal oral secretions Had G-J tube replaced Tolerates TF Objective Vital Signs Vital Signs Date Time Temp Pulse Resp B/P Pulse Ox O2 Delivery O2 Flow Rate FiO2 12/21/16 12:00 97.6 85 20 111/85 100 12/21/16 08:00 97.3 88 20 121/85 100 12/21/16 06:07 97.5 83 19 106/69 97 12/21/16 00:46 98.0 76 19 100/72 96 12/20/16 22:12 99 T-piece 5.00 28 12/20/16 22:12 99 T-piece 5.00 28 12/20/16 21:26 97.9 100 19 114/70 100 12/20/16 20:00 90 12/20/16 16:30 96.0 90 18 119/78 99 I/O 12/20/16 12/20/16 12/20/16 12/21/16 12/21/16 12/21/16 07:00 15:00 23:00 07:00 15:00 23:00 Intake Total 499 ml 0 ml Output Total 200 ml 500 ml 1300 ml Balance 299 ml -500 ml -1300 ml Intake Oral 0 ml IV Total 219 ml Other 280 ml Output Urine Total 200 ml 500 ml 1300 ml # Bowel Movements 1 0 2 Result Diagram: 12/20/1682112/20/16821 Objective Remarks GENERAL: Well-nourished, well-developed patient. SKIN: Warm and dry. HEAD: Normocephalic. EYES: No scleral icterus. No injection or drainage. NECK: Supple, trachea midline. No JVD or lymphadenopathy. trach in place CARDIOVASCULAR: Regular rate and rhythm without murmurs, gallops, or rubs. RESPIRATORY: Breath sounds equal bilaterally. No accessory muscle use. GASTROINTESTINAL: Abdomen soft, non-tender, nondistended. MUSCULOSKELETAL: No cyanosis, or edema. BACK: Nontender without obvious deformity. No CVA tenderness. A/P Assessment and Plan Resp Failure, s/p trach Encephalopathy AF DM PLAN: Trach care DW Family at BS. Suction prn resume TF Aureliano Grove MD Dec 21, 2016 13:56
--- NOTE | 2016-12-21 14:03 | HHI.PR ---
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 Patient continues to be nonverbal, and is not involved in his care. Patient seen and examined today. Patient lying in bed in no apparent distress. Mother at the bedside. Pt evidenced some difficulty following commands in Ghanaian yet was more prompt in following commands from his mother when said in Hebrew. Pt underwent PEG tube replacement yesterday, no issues report as a result of, or after, tube placement. Objective Vitals Vital Signs Date Time Temp Pulse Resp B/P Pulse Ox O2 Delivery O2 Flow Rate FiO2 12/21/16 12:00 97.6 85 20 111/85 100 12/21/16 08:00 97.3 88 20 121/85 100 12/21/16 06:07 97.5 83 19 106/69 97 12/21/16 00:46 98.0 76 19 100/72 96 12/20/16 22:12 99 T-piece 5.00 28 12/20/16 22:12 99 T-piece 5.00 28 12/20/16 21:26 97.9 100 19 114/70 100 12/20/16 20:00 90 12/20/16 16:30 96.0 90 18 119/78 99 I/O 12/20/16 12/20/16 12/20/16 12/21/16 12/21/16 12/21/16 07:00 15:00 23:00 07:00 15:00 23:00 Intake Total 499 ml 0 ml Output Total 200 ml 500 ml 1300 ml Balance 299 ml -500 ml -1300 ml Intake Oral 0 ml IV Total 219 ml Other 280 ml Output Urine Total 200 ml 500 ml 1300 ml # Bowel Movements 1 0 2 Result Diagram: 12/20/1682112/20/16821 Imaging Last Impressions Tube Change 12/20/16 0000 Signed Impressions: Service Date/Time: Tuesday, December 20, 2016 14:13 - CONCLUSION: Uncomplicated gastrojejunostomy tube exchange as above. Scott Griffin MD Chest X-Ray 12/06/16 0000 Signed Impressions: Service Date/Time: Tuesday, December 06, 2016 11:07 - CONCLUSION: 1. Hypoinflation with minimal bibasilar atelectatic changes. 2. No confluent infiltrate or effusion. Bobby Gray MD Tube Check 12/04/16 0000 Signed Impressions: Service Date/Time: Sunday, December 04, 2016 17:58 - CONCLUSION: Uncomplicated tube injection as above. the tube is in good position and functions normally. Moises Ramírez MD Abdomen X-Ray 08/31/16 0000 Signed Impressions: Service Date/Time: Wednesday, August 31, 2016 16:36 - CONCLUSION: 1. No acute findings. Mild constipation. Durga Dotson MD Abdomen/Pelvis CT 04/12/16 0000 Signed Impressions: Service Date/Time: Tuesday, April 12, 2016 20:52 - CONCLUSION: 1. 6.4 cm necrotic mass or abscess in the soft tissues posteriorly just below the sacrum associated with some bony destructive change of the lower most sacrum and coccyx with inflammatory changes extending into the ischiorectal fossa and into the presacral retroperitoneum predominantly on the left side. There is associated fairly marked mural thickening of the anal verge and rectum. 2. There is gastrostomy and Arevalo catheter present. Stable abdominal aortic aneurysm. Durga Dotson MD Head Magnetic Resonance Angiography 03/05/16 0000 Signed Impressions: Service Date/Time: Saturday, March 05, 2016 09:26 - CONCLUSION: Persistent high-grade subtotal occlusive stenotic lesions in the distal right vertebral artery and proximal basilar artery with significant improvement in flow and recanalization following initial presentation of thrombosis. Stable interstitial circulation without significant stenosis. 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 There is decreasing restricted diffusion and increasing loss of volume characteristic of a subacute to chronic infarct. No evidence of acute infarct, acute hemorrhage mass or edema. Ernesto Kulkarni MD Head CT 01/16/16 0000 Signed Impressions: Service Date/Time: Saturday, January 16, 2016 10:51 - CONCLUSION: No extensive low density in the brainstem colin more prominent in the right the left extending into the right middle cerebellar peduncle consistent with brainstem infarct nonhemorrhagic acute Wellington West MD Neck Magnetic Resonance Angiography 12/22/15 1445 Signed Impressions: Service Date/Time: Tuesday, December 22, 2015 09:22 - CONCLUSION: Variant origin of the left vertebral artery from the aortic arch. No evidence of carotid stenosis. Glen Zamora MD Head/Brain Mag Res Venography 12/22/15 0000 Signed Impressions: Service Date/Time: Tuesday, December 22, 2015 09:22 - CONCLUSION: Normal MRV. Jonel Jones Jr., MD Objective Remarks GENERAL: Pt encountered laying a bed, non-verbal, tracking people in room, glasses worn. Not in acute distress. Appeared more attentive today as evidenced by following commands. SKIN: Warm and dry. tattoo noted on right forearm. HEAD: Normocephalic. EYES: Non-icteric without injection or drainage. Pt noted to have eyes open for much of clinical visit. NECK: Supple, trachea midline. T-tube in place. CARDIOVASCULAR: Regular rate and rhythm without murmurs, gallops, or rubs. RESPIRATORY: Breath sounds equal bilaterally;. No accessory muscle use. Trach tube in place. Bedside monitor indicated oxygen saturation was 96% GASTROINTESTINAL: Abdomen soft, non-tender, nondistended. GJ tube noted, area around insertion was dry and seemingly without leakage. MUSCULOSKELETAL: No cyanosis, or edema. SCD's noted to be on both legs. PSYCHIATRIC: Pt non-verbal, he appeared calm and not in distress. Procedures 01/02/16 PEG placement 01/02/16 tracheostomy 07/22/2016 Wide excision of sacral skin wound, biopsy of the cavity lining and debridement. PEG tube replacement 07/29/16 VAC changes- M-W-F 4/- GJ tube replacement Medications and IVs Current Medications Medications (Trade) Dose Ordered Sig/Junior Route Start Time Stop Time Status Last Admin (NS Flush) 2 ml UNSCH PRN IVF 12/21/15 06:00 09/28/16 21:18 (Keppra Liq) 500 mg Q12HR TUBE 12/27/15 21:00 12/21/16 08:36 (Tylenol 650 Mg/ 20 ml Liq) 650 mg Q6H PRN TUBE 12/30/15 15:15 11/14/16 21:18 (Mycostatin Powder) 1 applic Q12HR TOPICAL 01/08/16 21:00 12/21/16 09:00 (Pill Splitter) 1 ea UNSCH PRN OTHER 01/14/16 08:30 (Acetic Acid 0.25% Irr Btl) 10 ml Q8HR IRRIGATION 02/05/16 16:00 12/21/16 05:42 (Ativan Inj) 0.5 mg Q4H PRN IV PUSH 03/07/16 23:00 (Paxil Liq) 20 mg DAILY@1900 PEG 03/12/16 19:00 12/20/16 19:00 (Levemir Inj) 35 units HS SQ 03/24/16 21:00 Hold 11/15/16 22:06 (Levsin) 0.25 mg Q4H PRN G-TUBE 04/11/16 10:30 08/31/16 05:02 (Zofran Inj) 4 mg Q6HR PRN IV PUSH 04/14/16 19:45 08/10/16 10:16 (Free Water) 200 ml Q4HR TUBE 04/16/16 12:00 12/21/16 12:00 (D50w (Vial) Inj) 25 ml UNSCH PRN IV 04/20/16 12:00 (Glucagon Inj) 1 mg UNSCH PRN IM/SQ 04/20/16 12:00 (K-Lyte Cl Eff) 25 meq DAILY TUBE 05/28/16 09:00 12/21/16 08:37 (Aspirin) 325 mg DAILY TUBE 05/27/16 11:40 12/21/16 08:36 (Heparin Inj) 5,000 units Q8HR SQ 06/11/16 14:00 12/21/16 05:43 (Baciguent Oint) 1 applic BID TOP 07/20/16 10:00 12/21/16 08:37 (Protonix Inj) 40 mg Q12H IV PUSH 07/30/16 10:15 12/21/16 08:36 ([place]) 1 spray BID NASAL 08/01/16 21:00 12/21/16 08:38 (Colace Liq) 100 mg BID PO 08/30/16 21:00 11/20/16 08:03 (Lactulose Liq) 30 ml DAILY PO 09/02/16 15:30 Hold 11/20/16 08:03 (Tears Naturale Opth Soln) 1 drop BID EACH EYE 09/05/16 21:00 12/21/16 08:37 (Morphine Inj) 1 mg Q24H PRN IV PUSH 09/17/16 14:30 10/22/16 02:00 (Nizoral 2% Cream) 1 applic Q12HR TOPICAL 09/24/16 21:00 12/20/16 09:00 (Senna Liq) 8.8 mg DAILY@1600 PO 09/25/16 17:00 Hold 11/12/16 16:45 (Fleets Enema (Adult)) 133 ml UNSCH PRN CA 09/25/16 16:00 (Dulcolax Supp) 10 mg DAILY PRN RECTAL 09/26/16 15:30 12/08/16 09:17 (Milk Of Magnesia Liq) 30 ml DAILY PRN PO 10/13/16 14:30 12/19/16 12:33 (Chancellor 5-325 Mg) 1 tab Q6H PRN PO 10/13/16 18:45 12/18/16 05:28 (Flexeril) 5 mg HS PRN PO 10/14/16 14:15 10/22/16 21:17 (Cardizem) 30 mg Q12H PEG 11/20/16 01:00 12/20/16 02:45 (Lopressor) 25 mg BID PO 11/19/16 21:00 12/21/16 08:38 Loperamide HCl 2 mg 2 mg Q6H PRN PO 11/20/16 15:30 11/21/16 02:04 (NS 1000 ml Inj) 1,000 ml @ 30 mls/hr Q24H IV 11/28/16 19:45 12/20/16 21:55 Urinary Catheter: Yes Assessment to: Continue Arevalo insert reason: Prolonged Immobilization Date of Insertion: Oct 12, 2016 A/P Problem List: (1) CVA (cerebral vascular accident) ICD Code: I63.9 Status: Acute (2) A-fib ICD Code: I48.91 Status: Chronic (3) DM (diabetes mellitus) ICD Code: E11.9 Status: Chronic Assessment and Plan 60 year-old male with: //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 Tracks with his eyes. Continue Keppra for seizure prophylaxis. PT/OT signed off as patient is unable to participate. -Need placement. Difficult. Appreciate case management assistance. 12/02/16: Rehab Medicine (Dr. Pickens) saw pt on 12/04/16, rec's on chart. //Chronic respiratory failure -Secondary to CVA. Status post tracheostomy. Continue pulmonary toilet and bronchodilators as needed. Continue trach care, suctioning. Levsin as needed. -Pulmonary currently following . Appreciate assistance. -Pt noted to have oxygenation (per bedside monitor) improvement noted after pt was repositioned and he received a breathing treatment. Oxygen saturation was noted to be 95% on follow-up visit. -12/06/16 pt noted to have Rhonchi for second day, chest x-ray ordered. No acute findings noted. pt without cough and fever. monitor. -12/07/16 Rhonchi not present upon exam. Discussed with Dr. Leal and he advised using Mucomyst should rhonchi recur. Dr. Taylor with pulmonology continues to follow //Atrial fibrillation -Continue rate control with Cardizem and metoprolol. Echocardiogram in November 2015 shows preserved ejection fraction. Coumadin discontinued secondary to bleeding. Rate controlled. Continue aspirin and prophylactic heparin dose. //History of non-Hodgkin's lymphoma - Status post brain biopsy on December 13 by neurosurgery. Pathology consistent with acute infarct without evidence of lymphoma. Oncology has signed all //Diabetes mellitus -Hemoglobin A1c is 7. Continue Levemir. Monitor Accu-Cheks and cover with sliding scale insulin. Overall blood sugar continues well controlled. //Decubitus ulcer stage IV -Continue wound care, twice-daily dressing changes. Wound care recommendations. Continue pressure relief measures including turning and positioning. Patient's family has declined a diverting colostomy. Previous Wound culture growing Klebsiella. on Augmentin. Status post wide excision of sacral skin and biopsy of the cavity lining with debridement on 07/22/16. Continue scheduled Chancellor every 8 hours. -Continue to monitor for pain. //Gastric ulcer, reflux esophagitis - EGD on 07/30/16 showed gastric ulcers. Appreciate GI recommendations. Continue PPI. H&H stable as of last recheck.. //UTI pseudomonas aeruginosa treated with abx -Resolved. - Repeat Ucx 08/28/16 negative. -Pt seen by ID (Dr. Alvarez) on 11/28/16. //Constipation: -Having regular bowel movements. -on lactulose. Monitor. -Notes of 11/21/16 indicated pt had diarrhea, he was checked for C. Diff and was negative. Imodium to be used. //FEN: Continue Nepro tube feeds with free water flushes. Appreciate dietary assistance. 12/02/16: Per Dr. Leal, IR to be consulted to replace GJ tube. -pt to have his GJ tube replaced later today (12/03/16). Replacement procedure did not occur on 12/03/16 and is being delayed until later today (12/04/16). -GJ tube replaced on 12/04/16. Per IR physician's note, no obstruction found and tube was in the correct position and operating normally. 12/07/16 J tube is clogged, nursing has applied water as well as soda to the line to try and flush the line with no progress at this time. G tube is patent and will use for feeding and medication. May need to consider increased rate of delivery to prevent clogging as well as more frequent flushing should patency of J tube be regained. Dr. Leal informed.12/08/16. J tube remains clogged, RN increased flow rate through G tube to 35 ml/hour. 12/17/16 Due to frequent clogging issues, dietary consult placed for evaluation and suggestions to address this issue. Awaiting their input. 12/18/16: Dr. Tatum has placed order for IR to replace feeding tube. GJ tube replaced on 12/20/16 without complication or issue. //DVT prophylaxis: SCDs/ subq heparin. Discussed with pt's mother (at bedside), RN Shmuel (at bedside), and Dr. Tatum. Discharge Planning Per CM on 11/29: pt has no payor source for rehab, declined by multiple facilities. Reviewed CM notes, placement continues to be an issue. Problem Qualifiers (1) CVA (cerebral vascular accident): (2) DM (diabetes mellitus): Qualified Code: E11.9 - Type 2 diabetes mellitus without complications Javier Harris Jr. Dec 21, 2016 14:03
[2016-12-21] MEDS: PARoxetine HCL SUSP 20 MG/10 ML UDC PEG SCH (18:18)
[2016-12-21] MEDS: SODIUM CHLOR 0.9% 1000 ML INJ 1,000 ML IV SCH (21:12)
[2016-12-22] VITALS (12 sets, daily range): BP systolic 107–175; BP diastolic 66–87; PULSE 80–103; RESP 19–24; TEMP 95.4–98.2; O2SAT 96–100
[2016-12-22] MEDS: DILTIAZEM HCL 30 MG TAB PEG SCH ×2 (00:55→13:00)
[2016-12-22] MEDS: FREE WATER TUBE SCH ×6 (04:00→20:00)
[2016-12-22] MEDS: ACETIC ACID 0.25% SOLN 1000 ML IRR BTL IRRIGATION SCH ×3 (05:10→21:43)
[2016-12-22] MEDS: HEPARIN SODIUM - SQ 10,000 UNITS/ML VIAL SQ SCH ×3 (05:10→21:41)
[2016-12-22] MEDS: INSULIN ASPART SUPPLEMENTAL SCALE SQ SCH (06:54)
[2016-12-22] MEDS: levETIRAcetam 500 MG/5 ML UDC TUBE SCH ×2 (08:21→21:39)
[2016-12-22] MEDS: DOCUSATE SODIUM 100 MG/10 ML UDC PO SCH ×2 (08:21→21:39)
[2016-12-22] MEDS: ASPIRIN 325 MG TAB TUBE SCH (08:22)
[2016-12-22] MEDS: POTASSIUM CHLORIDE 25 MEQ EFFERVESCENT TAB TUBE SCH (08:22)
[2016-12-22] MEDS: METOPROLOL TARTRATE 50 MG TAB PO SCH ×2 (08:22→21:40)
[2016-12-22] MEDS: BACITRACIN TOP OINT 15 GM TUBE TOP SCH ×2 (08:23→21:41)
[2016-12-22] MEDS: NYSTATIN 100,000 U/GM PWD 15 GM BTL TOPICAL SCH ×2 (08:23→21:41)
[2016-12-22] MEDS: ARTIFICIAL TEARS OPTH SOLN 15 ML BTL EACH EYE SCH ×2 (08:23→21:42)
[2016-12-22] MEDS: SODIUM CHLORIDE 0.65% NASAL SPRAY 45 ML BTL NASAL SCH ×2 (08:36→21:00)
[2016-12-22] MEDS: KETOCONAZOLE 2% CREAM 15 GM TOPICAL SCH ×2 (08:36→21:00)
[2016-12-22] MEDS: PANTOPRAZOLE SODIUM 40 MG VIAL IV PUSH SCH ×2 (10:15→21:40)
--- NOTE | 2016-12-22 12:40 | HHI.PR ---
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 Patient continues to be nonverbal, and is not involved in his care. Patient seen and examined today. Patient lying in bed in no apparent distress. Mother at the bedside and reported pt's birthday was yesterday. No issues reported related to recent PEG tube replacement. Pt's RN (Shmuel) denied acute changes over night or new issues or concerns. Objective Vitals Vital Signs Date Time Temp Pulse Resp B/P Pulse Ox O2 Delivery O2 Flow Rate FiO2 12/22/16 12:25 96.6 86 20 108/69 98 12/22/16 09:19 98 T-piece 6.00 28 12/22/16 09:19 98 T-piece 6.00 28 12/22/16 08:05 96.1 102 20 134/87 96 12/22/16 06:33 98.0 103 19 130/80 98 12/22/16 00:59 97.1 85 19 130/79 99 12/22/16 00:54 80 12/21/16 21:12 97.9 84 19 113/74 98 12/21/16 21:10 99 T-Piece 28 12/21/16 21:05 86 12/21/16 20:41 83 12/21/16 19:42 98 T-piece 6.00 28 12/21/16 19:42 98 T-piece 6.00 28 12/21/16 16:00 97.3 82 18 122/75 99 I/O 12/21/16 12/21/16 12/21/16 12/22/16 12/22/16 12/22/16 07:00 15:00 23:00 07:00 15:00 23:00 Intake Total 600 ml 720 ml Output Total 1300 ml 600 ml 1400 ml Balance -1300 ml -600 ml -800 ml 720 ml Tube Feeding 720 ml Other 600 ml Output Urine Total 1300 ml 600 ml 1400 ml # Bowel Movements 2 1 Result Diagram: 12/20/1682112/20/16821 Imaging Last Impressions Tube Change 12/20/16 0000 Signed Impressions: Service Date/Time: Tuesday, December 20, 2016 14:13 - CONCLUSION: Uncomplicated gastrojejunostomy tube exchange as above. Scott Griffin MD Chest X-Ray 12/06/16 0000 Signed Impressions: Service Date/Time: Tuesday, December 06, 2016 11:07 - CONCLUSION: 1. Hypoinflation with minimal bibasilar atelectatic changes. 2. No confluent infiltrate or effusion. Bobby Gray MD Tube Check 12/04/16 0000 Signed Impressions: Service Date/Time: Sunday, December 04, 2016 17:58 - CONCLUSION: Uncomplicated tube injection as above. the tube is in good position and functions normally. Moises Ramírez MD Abdomen X-Ray 08/31/16 0000 Signed Impressions: Service Date/Time: Wednesday, August 31, 2016 16:36 - CONCLUSION: 1. No acute findings. Mild constipation. Durga Dotson MD Abdomen/Pelvis CT 04/12/16 0000 Signed Impressions: Service Date/Time: Tuesday, April 12, 2016 20:52 - CONCLUSION: 1. 6.4 cm necrotic mass or abscess in the soft tissues posteriorly just below the sacrum associated with some bony destructive change of the lower most sacrum and coccyx with inflammatory changes extending into the ischiorectal fossa and into the presacral retroperitoneum predominantly on the left side. There is associated fairly marked mural thickening of the anal verge and rectum. 2. There is gastrostomy and Arevalo catheter present. Stable abdominal aortic aneurysm. Durga Dotson MD Head Magnetic Resonance Angiography 03/05/16 0000 Signed Impressions: Service Date/Time: Saturday, March 05, 2016 09:26 - CONCLUSION: Persistent high-grade subtotal occlusive stenotic lesions in the distal right vertebral artery and proximal basilar artery with significant improvement in flow and recanalization following initial presentation of thrombosis. Stable interstitial circulation without significant stenosis. 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 There is decreasing restricted diffusion and increasing loss of volume characteristic of a subacute to chronic infarct. No evidence of acute infarct, acute hemorrhage mass or edema. Ernesto Kulkarni MD Head CT 01/16/16 0000 Signed Impressions: Service Date/Time: Saturday, January 16, 2016 10:51 - CONCLUSION: No extensive low density in the brainstem colin more prominent in the right the left extending into the right middle cerebellar peduncle consistent with brainstem infarct nonhemorrhagic acute Wellington West MD Neck Magnetic Resonance Angiography 12/22/15 1445 Signed Impressions: Service Date/Time: Tuesday, December 22, 2015 09:22 - CONCLUSION: Variant origin of the left vertebral artery from the aortic arch. No evidence of carotid stenosis. Glen Zamora MD Head/Brain Mag Res Venography 12/22/15 0000 Signed Impressions: Service Date/Time: Tuesday, December 22, 2015 09:22 - CONCLUSION: Normal MRV. Jonel Jones Jr., MD Objective Remarks GENERAL: Pt encountered laying a bed, non-verbal, tracking people in room. Not in acute distress. SKIN: Warm and dry. tattoo noted on right forearm. HEAD: Normocephalic. EYES: Non-icteric without injection or drainage. Pt noted to have eyes open for much of clinical visit. NECK: Supple, trachea midline. T-tube in place. CARDIOVASCULAR: Regular rate and rhythm without murmurs, gallops, or rubs. RESPIRATORY: Breath sounds equal bilaterally;. No accessory muscle use. Trach tube in place. Bedside monitor indicated oxygen saturation was 96% GASTROINTESTINAL: Abdomen soft, non-tender, nondistended. GJ tube noted, area around insertion was dry and seemingly without leakage. MUSCULOSKELETAL: No cyanosis, or edema. Bilateral lower leg SCD's present. PSYCHIATRIC: Pt non-verbal, he appeared calm and not in distress. Procedures 01/02/16 PEG placement 01/02/16 tracheostomy 07/22/2016 Wide excision of sacral skin wound, biopsy of the cavity lining and debridement. PEG tube replacement 07/29/16 VAC changes- M-W-F 10/23- GJ tube replacement Medications and IVs Current Medications Medications (Trade) Dose Ordered Sig/Junior Route Start Time Stop Time Status Last Admin (NS Flush) 2 ml UNSCH PRN IVF 12/21/15 06:00 09/28/16 21:18 (Keppra Liq) 500 mg Q12HR TUBE 12/27/15 21:00 12/22/16 08:21 (Tylenol 650 Mg/ 20 ml Liq) 650 mg Q6H PRN TUBE 12/30/15 15:15 11/14/16 21:18 (Mycostatin Powder) 1 applic Q12HR TOPICAL 01/08/16 21:00 12/22/16 08:23 (Pill Splitter) 1 ea UNSCH PRN OTHER 01/14/16 08:30 (Acetic Acid 0.25% Irr Btl) 10 ml Q8HR IRRIGATION 02/05/16 16:00 12/22/16 05:10 (Ativan Inj) 0.5 mg Q4H PRN IV PUSH 03/07/16 23:00 (Paxil Liq) 20 mg DAILY@1900 PEG 03/12/16 19:00 12/21/16 18:18 (Levemir Inj) 35 units HS SQ 03/24/16 21:00 Hold 11/15/16 22:06 (Levsin) 0.25 mg Q4H PRN G-TUBE 04/11/16 10:30 08/31/16 05:02 (Zofran Inj) 4 mg Q6HR PRN IV PUSH 04/14/16 19:45 08/10/16 10:16 (Free Water) 200 ml Q4HR TUBE 04/16/16 12:00 12/22/16 08:00 (D50w (Vial) Inj) 25 ml UNSCH PRN IV 04/20/16 12:00 (Glucagon Inj) 1 mg UNSCH PRN IM/SQ 04/20/16 12:00 (K-Lyte Cl Eff) 25 meq DAILY TUBE 05/28/16 09:00 12/22/16 08:22 (Aspirin) 325 mg DAILY TUBE 05/27/16 11:40 12/22/16 08:22 (Heparin Inj) 5,000 units Q8HR SQ 06/11/16 14:00 12/22/16 05:10 (Baciguent Oint) 1 applic BID TOP 07/20/16 10:00 12/22/16 08:23 (Protonix Inj) 40 mg Q12H IV PUSH 07/30/16 10:15 12/22/16 10:15 (Penermon Angel [place]) 1 spray BID NASAL 08/01/16 21:00 12/22/16 08:36 (Colace Liq) 100 mg BID PO 08/30/16 21:00 12/22/16 08:21 (Lactulose Liq) 30 ml DAILY PO 09/02/16 15:30 Hold 11/20/16 08:03 (Tears Naturale Opth Soln) 1 drop BID EACH EYE 09/05/16:00 12/22/16 08:23 (Morphine Inj) 1 mg Q24H PRN IV PUSH 09/17/16 14:30 10/22/16 02:00 (Nizoral 2% Cream) 1 applic Q12HR TOPICAL 09/24/16 21:00 12/20/16 09:00 (Senna Liq) 8.8 mg DAILY@1600 PO 09/25/16 17:00 Hold 11/12/16 16:45 (Fleets Enema (Adult)) 133 ml UNSCH PRN DC 09/25/16 16:00 (Dulcolax Supp) 10 mg DAILY PRN RECTAL 09/26/16 15:30 12/08/16 09:17 (Milk Of Magnesia Liq) 30 ml DAILY PRN PO 10/13/16 14:30 12/19/16 12:33 ([place]on 5-325 Mg) 1 tab Q6H PRN PO 10/13/16 18:45 12/18/16 05:28 (Flexeril) 5 mg HS PRN PO 10/14/16 14:15 10/22/16 21:17 (Cardizem) 30 mg Q12H PEG 11/20/16 01:00 12/20/16 02:45 (Lopressor) 25 mg BID PO 11/19/16 21:00 12/22/16 08:22 Loperamide HCl 2 mg 2 mg Q6H PRN PO 11/20/16 15:30 11/21/16 02:04 (NS 1000 ml Inj) 1,000 ml @ 30 mls/hr Q24H IV 11/28/16 19:45 12/21/16 21:12 Urinary Catheter: Yes Assessment to: Continue Arevalo insert reason: Prolonged Immobilization Date of Insertion: Oct 12, 2016 A/P Problem List: (1) CVA (cerebral vascular accident) ICD Code: I63.9 Status: Acute (2) A-fib ICD Code: I48.91 Status: Chronic (3) DM (diabetes mellitus) ICD Code: E11.9 Status: Chronic Assessment and Plan 61 year-old male with: //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 Tracks with his eyes. Continue Keppra for seizure prophylaxis. PT/OT signed off as patient is unable to participate. -Need placement. Difficult. Appreciate case management assistance. 12/02/16: Rehab Medicine (Dr. Pickens) saw pt on 12/04/16, rec's on chart. //Chronic respiratory failure -Secondary to CVA. Status post tracheostomy. Continue pulmonary toilet and bronchodilators as needed. Continue trach care, suctioning. Levsin as needed. -Pulmonary currently following . Appreciate assistance. -Pt noted to have oxygenation (per bedside monitor) improvement noted after pt was repositioned and he received a breathing treatment. Oxygen saturation was noted to be 95% on follow-up visit. -12/06/16 pt noted to have Rhonchi for second day, chest x-ray ordered. No acute findings noted. pt without cough and fever. monitor. -12/07/16 Rhonchi not present upon exam. Discussed with Dr. Leal and he advised using Mucomyst should rhonchi recur. Dr. Taylor with pulmonology continues to follow //Atrial fibrillation -Continue rate control with Cardizem and metoprolol. Echocardiogram in November 2015 shows preserved ejection fraction. Coumadin discontinued secondary to bleeding. Rate controlled. Continue aspirin and prophylactic heparin dose. //History of non-Hodgkin's lymphoma - Status post brain biopsy on December 13 by neurosurgery. Pathology consistent with acute infarct without evidence of lymphoma. Oncology has signed all //Diabetes mellitus -Hemoglobin A1c is 7. Continue Levemir. Monitor Accu-Cheks and cover with sliding scale insulin. Overall blood sugar continues well controlled. //Decubitus ulcer stage IV -Continue wound care, twice-daily dressing changes. Wound care recommendations. Continue pressure relief measures including turning and positioning. Patient's family has declined a diverting colostomy. Previous Wound culture growing Klebsiella. on Augmentin. Status post wide excision of sacral skin and biopsy of the cavity lining with debridement on 07/22/16. Continue scheduled [place] every 8 hours. -Continue to monitor for pain. //Gastric ulcer, reflux esophagitis - EGD on 07/30/16 showed gastric ulcers. Appreciate GI recommendations. Continue PPI. H&H stable as of last recheck.. //UTI pseudomonas aeruginosa treated with abx -Resolved. - Repeat Ucx 08/28/16 negative. -Pt seen by ID (Dr. Alvarez) on 11/28/16. //Constipation: -Having regular bowel movements. -on lactulose. Monitor. -Notes of 11/21/16 indicated pt had diarrhea, he was checked for C. Diff and was negative. Imodium to be used. //FEN: Continue Nepro tube feeds with free water flushes. Appreciate dietary assistance. 12/02/16: Per Dr. Leal, IR to be consulted to replace GJ tube. -pt to have his GJ tube replaced later today (12/03/16). Replacement procedure did not occur on 12/03/16 and is being delayed until later today (12/04/16). -GJ tube replaced on 12/04/16. Per IR physician's note, no obstruction found and tube was in the correct position and operating normally. 12/07/16 J tube is clogged, nursing has applied water as well as soda to the line to try and flush the line with no progress at this time. G tube is patent and will use for feeding and medication. May need to consider increased rate of delivery to prevent clogging as well as more frequent flushing should patency of J tube be regained. Dr. Leal informed.12/08/16. J tube remains clogged, RN increased flow rate through G tube to 35 ml/hour. 12/17/16 Due to frequent clogging issues, dietary consult placed for evaluation and suggestions to address this issue. Awaiting their input. 12/18/16: Dr. Tatum has placed order for IR to replace feeding tube. GJ tube replaced on 12/20/16 without complication or issue. //DVT prophylaxis: SCDs/ subq heparin. Discussed with pt's mother (at bedside), RN Shmuel (at bedside), and Dr. Tatum. Discharge Planning Per CM on 11/29: pt has no payor source for rehab, declined by multiple facilities. Reviewed CM notes, placement continues to be an issue. Problem Qualifiers (1) CVA (cerebral vascular accident): (2) DM (diabetes mellitus): Qualified Code: E11.9 - Type 2 diabetes mellitus without complications Javier Harris Jr. Dec 22, 2016 12:40
--- NOTE | 2016-12-22 14:40 | HHI.PR ---
Subjective Remarks 60 YO Male with RF, Encephalopathy On Trach collar Cough on suctioning Awake, some tracking of objects noted Minimal oral secretions Had G-J tube replaced Tolerates TF Mother at BS Objective Vital Signs Vital Signs Date Time Temp Pulse Resp B/P Pulse Ox O2 Delivery O2 Flow Rate FiO2 12/22/16 12:25 96.6 86 20 108/69 98 12/22/16 09:19 98 T-piece 6.00 28 12/22/16 09:19 98 T-piece 6.00 28 12/22/16 08:05 96.1 102 20 134/87 96 12/22/16 06:33 98.0 103 19 130/80 98 12/22/16 00:59 97.1 85 19 130/79 99 12/22/16 00:54 80 12/21/16 21:12 97.9 84 19 113/74 98 12/21/16 21:10 99 T-Piece 28 12/21/16 21:05 86 12/21/16 20:41 83 12/21/16 19:42 98 T-piece 6.00 28 12/21/16 19:42 98 T-piece 6.00 28 12/21/16 16:00 97.3 82 18 122/75 99 I/O 12/21/16 12/21/16 12/21/16 12/22/16 12/22/16 12/22/16 07:00 15:00 23:00 07:00 15:00 23:00 Intake Total 600 ml 720 ml Output Total 1300 ml 600 ml 1400 ml 800 ml Balance -1300 ml -600 ml -800 ml -80 ml Tube Feeding 720 ml Other 600 ml Output Urine Total 1300 ml 600 ml 1400 ml 800 ml # Bowel Movements 2 1 Result Diagram: 12/20/1682112/20/16821 Objective Remarks GENERAL: Well-nourished, well-developed patient. SKIN: Warm and dry. HEAD: Normocephalic. EYES: No scleral icterus. No injection or drainage. NECK: Supple, trachea midline. No JVD or lymphadenopathy. trach in place CARDIOVASCULAR: Regular rate and rhythm without murmurs, gallops, or rubs. RESPIRATORY: Breath sounds equal bilaterally. No accessory muscle use. GASTROINTESTINAL: Abdomen soft, non-tender, nondistended. MUSCULOSKELETAL: No cyanosis, or edema. BACK: Nontender without obvious deformity. No CVA tenderness. A/P Assessment and Plan Resp Failure, s/p trach Encephalopathy AF DM PLAN: Trach care DW Family at BS. Suction prn Cont. TF Aureliano [place] MD Dec 22, 2016 14:40
[2016-12-22] MEDS: PARoxetine HCL SUSP 20 MG/10 ML UDC PEG SCH (18:42)
[2016-12-22] MEDS: ACETAMINOPHEN/HYDROcodone 325 MG/5 MG TAB PO PRN (18:42)
[2016-12-22] MEDS: SODIUM CHLOR 0.9% 1000 ML INJ 1,000 ML IV SCH (21:44)
[2016-12-23] VITALS (9 sets, daily range): BP systolic 103–114; BP diastolic 66–80; PULSE 74–84; RESP 18–20; TEMP 97–98.7; O2SAT 93–100
[2016-12-23] MEDS: DILTIAZEM HCL 30 MG TAB PEG SCH ×2 (02:13→13:00)
[2016-12-23] MEDS: FREE WATER TUBE SCH ×6 (04:00→20:00)
[2016-12-23] MEDS: HEPARIN SODIUM - SQ 10,000 UNITS/ML VIAL SQ SCH ×3 (06:19→22:30)
[2016-12-23] MEDS: ACETIC ACID 0.25% SOLN 1000 ML IRR BTL IRRIGATION SCH ×3 (06:19→22:30)
[2016-12-23] MEDS: INSULIN ASPART SUPPLEMENTAL SCALE SQ SCH (07:00)
[2016-12-23] MEDS: DOCUSATE SODIUM 100 MG/10 ML UDC PO SCH ×2 (08:55→22:30)
[2016-12-23] MEDS: ASPIRIN 325 MG TAB TUBE SCH (08:55)
[2016-12-23] MEDS: POTASSIUM CHLORIDE 25 MEQ EFFERVESCENT TAB TUBE SCH (08:56)
[2016-12-23] MEDS: levETIRAcetam 500 MG/5 ML UDC TUBE SCH ×2 (08:56→22:30)
[2016-12-23] MEDS: PANTOPRAZOLE SODIUM 40 MG VIAL IV PUSH SCH ×2 (08:56→22:30)
[2016-12-23] MEDS: METOPROLOL TARTRATE 50 MG TAB PO SCH ×2 (08:57→21:00)
[2016-12-23] MEDS: SODIUM CHLORIDE 0.65% NASAL SPRAY 45 ML BTL NASAL SCH ×2 (08:59→22:30)
[2016-12-23] MEDS: BACITRACIN TOP OINT 15 GM TUBE TOP SCH ×2 (08:59→22:30)
[2016-12-23] MEDS: KETOCONAZOLE 2% CREAM 15 GM TOPICAL SCH ×2 (08:59→22:30)
[2016-12-23] MEDS: NYSTATIN 100,000 U/GM PWD 15 GM BTL TOPICAL SCH ×2 (08:59→22:30)
[2016-12-23] MEDS: ARTIFICIAL TEARS OPTH SOLN 15 ML BTL EACH EYE SCH ×2 (09:00→22:30)
--- NOTE | 2016-12-23 11:05 | HHI.PR ---
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 Patient seen and examined today. Mother and patient's sister at bedside. Patient lying in bed comfortably, in no apparent distress. Spoke to RN, no acute events overnight. Afebrile. VSS. Trach collar in place. TF continued, PEG in place. Objective Vitals Vital Signs Date Time Temp Pulse Resp B/P Pulse Ox O2 Delivery O2 Flow Rate FiO2 12/23/16 09:20 99 T-piece 28 12/23/16 09:20 99 T-piece 28 12/23/16 08:05 80 12/23/16 08:00 97.8 82 18 112/66 12/23/16 04:00 98.7 78 20 114/72 98 12/23/16 02:13 76 100 12/23/16 00:00 97.0 74 18 106/69 99 12/22/16 22:40 81 12/22/16 22:39 82 12/22/16 22:38 86 12/22/16 22:21 99 T-Piece 12/22/16 21:47 100 T-piece 28 12/22/16 20:00 95.4 102 24 175/79 99 12/22/16 16:02 98.2 83 20 107/66 97 12/22/16 12:25 96.6 86 20 108/69 98 I/O 12/22/16 12/22/16 12/22/16 12/23/16 12/23/16 12/23/16 07:00 15:00 23:00 07:00 15:00 23:00 Intake Total 600 ml 720 ml 1380 ml Output Total 1400 ml 800 ml 500 ml 850 ml Balance -800 ml -80 ml -500 ml -850 ml 1380 ml Tube Feeding 720 ml 780 ml Other 600 ml 600 ml Output Urine Total 1400 ml 800 ml 500 ml 850 ml # Bowel Movements 1 Result Diagram: 12/20/1682112/20/16821 Objective Remarks GENERAL: Non-verbal, tracking people in room, glasses worn. Not in acute distress. SKIN: Warm and dry. HEENT: Normocephalic. Pupils nonicteric. Nose without bleeding. Airway patent. NECK: Supple, trachea midline. T-tube in place. No JVD. CARDIOVASCULAR: Regular rate and rhythm. No murmur appreciated. RESPIRATORY: Breath sounds equal bilaterally. No accessory muscle use. Trach tube in place. Bedside monitor indicated oxygen saturation was 99%. GASTROINTESTINAL: Abdomen soft, non-tender, nondistended. GJ tube noted, area around insertion was dry, dressing intact. MUSCULOSKELETAL: No cyanosis, or edema. PSYCHIATRIC: Pt non-verbal, he appeared calm and not in distress. Procedures 01/02/16 PEG placement 01/02/16 tracheostomy 07/22/2016 Wide excision of sacral skin wound, biopsy of the cavity lining and debridement. PEG tube replacement 07/29/16 VAC changes- M-W-F 10/23- GJ tube replacement Date of Insertion: Oct 12, 2016 A/P Problem List: (1) CVA (cerebral vascular accident) ICD Code: I63.9 Status: Acute (2) A-fib ICD Code: I48.91 Status: Chronic (3) DM (diabetes mellitus) ICD Code: E11.9 Status: Chronic Assessment and Plan 60 year-old male with past medical history of paroxysmal A. fib, hypertension, stage III non-Hodgkin's lymphoma status post chemotherapy who came into the hospital with altered mental status. 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 Intermittently tracks with eyes. Sister at bedside. - Continue Keppra for seizure prophylaxis. - PT/OT signed off as patient is unable to participate. - No placement available. Appreciate case management assistance. Last CM note indicates continued difficult placement and has medicaid with no accepting facility. Rehab Medicine (Dr. Pickens) following. Chronic respiratory failure secondary to CVA - Status post tracheostomy. Continue pulmonary toilet and bronchodilators as needed. Continue trach care, suctioning. Levsin as needed. - Pulmonary currently following, appreciate assistance. Atrial fibrillation, controlled - Continue rate control with Cardizem and metoprolol. - Echocardiogram in November 2015 shows preserved ejection fraction. Coumadin discontinued secondary to bleeding. - Continue aspirin and prophylactic heparin dose. History of non-Hodgkin's lymphoma - Status post brain biopsy on December 13 by neurosurgery. Pathology consistent with acute infarct without evidence of lymphoma. Oncology has signed off. Diabetes mellitus Type 2 - Hemoglobin A1c is 7. Continue Levemir. Monitor Accu-Cheks and cover with sliding scale insulin. Overall blood sugar continues well controlled. Decubitus ulcer stage IV - Continue wound care, twice-daily dressing changes. Wound care recommendations last updated 12/12/16. Continue pressure relief measures including turning and positioning. Patient's family has declined a diverting colostomy. Previous Wound culture growing Klebsiella and Enterococcus Faecalis. Previously on Augmentin. Status post wide excision of sacral skin and biopsy of the cavity lining with debridement on 07/22/16. - Continue to monitor for pain. Gastric ulcer, reflux esophagitis - EGD on 07/30/16 showed gastric ulcers. Continue PPI. H&H stable. UTI pseudomonas aeruginosa treated with abx - Resolved. Repeat Ucx 08/28/16 negative. Patient seen by ID (Dr. Alvarez) on 11/28/16. Constipation: - Notes of 11/21/16 indicated pt had diarrhea, C. Diff negative. Imodium PRN. - Last BM 12/22. Severe malnutrition - Dietary last recommendations on 12/17/16. Continue Glucerna 1.0 @ 85 ml/hr to provide 2040 kcals, 85 gms protein and 1740 mls of free water. Water flushes of 30 mls before and after medication administration should be given. - GJ tube plan to be replaced today DVT prophylaxis: SCDs. Heparin 5,000 units sq Q8hr. Discussed with pt's sister, RN, and Dr. Tatum. Discharge Planning Case management involved with discharge planning. As of 12/17/16, CM note patient has Medicaid without any accepting facility. Difficult placement. Problem Qualifiers (1) CVA (cerebral vascular accident): (2) DM (diabetes mellitus): Qualified Code: E11.9 - Type 2 diabetes mellitus without complications Haley Seymour Dec 23, 2016 11:05 Nahomy Tatum MD Dec 23, 2016 18:30
[2016-12-23] MEDS: PARoxetine HCL SUSP 20 MG/10 ML UDC PEG SCH (18:01)
[2016-12-23] MEDS: SODIUM CHLOR 0.9% 1000 ML INJ 1,000 ML IV SCH (18:08)
--- NOTE | 2016-12-23 18:34 | HHI.PR ---
Subjective Remarks 60 YO Male with RF, Encephalopathy On Trach collar Cough on suctioning Awake, some tracking of objects noted Tolerates TF Mother at BS Objective Vital Signs Vital Signs Date Time Temp Pulse Resp B/P Pulse Ox O2 Delivery O2 Flow Rate FiO2 12/23/16 16:00 97.4 84 18 111/70 98 12/23/16 12:00 97.2 74 18 103/67 93 12/23/16 09:20 99 T-piece 28 12/23/16 09:20 99 T-piece 28 12/23/16 08:05 80 12/23/16 08:00 97.8 82 18 112/66 12/23/16 04:00 98.7 78 20 114/72 98 12/23/16 02:13 76 100 12/23/16 00:00 97.0 74 18 106/69 99 12/22/16 22:40 81 12/22/16 22:39 82 12/22/16 22:38 86 12/22/16 22:21 99 T-Piece 28 12/22/16 21:47 100 T-piece 28 12/22/16 20:00 95.4 102 24 175/79 99 I/O 12/22/16 12/22/16 12/22/16 12/23/16 12/23/16 12/23/16 07:00 15:00 23:00 07:00 15:00 23:00 Intake Total 600 ml 720 ml 1380 ml 1866 ml Output Total 1400 ml 800 ml 500 ml 850 ml 700 ml Balance -800 ml -80 ml -500 ml -850 ml 680 ml 1866 ml Tube Feeding 720 ml 780 ml 1266 ml Other 600 ml 600 ml 600 ml Output Urine Total 1400 ml 800 ml 500 ml 850 ml 700 ml # Bowel Movements 1 Result Diagram: 12/20/1682112/20/16821 Objective Remarks GENERAL: Well-nourished, well-developed patient. SKIN: Warm and dry. HEAD: Normocephalic. EYES: No scleral icterus. No injection or drainage. NECK: Supple, trachea midline. No JVD or lymphadenopathy. trach in place CARDIOVASCULAR: Regular rate and rhythm without murmurs, gallops, or rubs. RESPIRATORY: Breath sounds equal bilaterally. No accessory muscle use. GASTROINTESTINAL: Abdomen soft, non-tender, nondistended. MUSCULOSKELETAL: No cyanosis, or edema. BACK: Nontender without obvious deformity. No CVA tenderness. A/P Assessment and Plan Resp Failure, s/p trach Encephalopathy AF DM PLAN: Trach care DW Family at BS. Suction prn Cont. TF Dr.Wahba opal CHERRY in [place] MD Dec 23, 2016 18:34
[2016-12-24] VITALS (11 sets, daily range): BP systolic 99–126; BP diastolic 65–88; PULSE 82–96; RESP 18–20; TEMP 96.8–98.8; O2SAT 95–100
[2016-12-24] MEDS: DILTIAZEM HCL 30 MG TAB PEG SCH ×2 (01:00→13:00)
[2016-12-24] MEDS: FREE WATER TUBE SCH ×5 (04:00→16:49)
[2016-12-24] MEDS: HEPARIN SODIUM - SQ 10,000 UNITS/ML VIAL SQ SCH ×3 (05:30→21:03)
[2016-12-24] MEDS: ACETIC ACID 0.25% SOLN 1000 ML IRR BTL IRRIGATION SCH ×3 (05:32→21:07)
[2016-12-24] MEDS: INSULIN ASPART SUPPLEMENTAL SCALE SQ SCH (05:32)
[2016-12-24] MEDS: DOCUSATE SODIUM 100 MG/10 ML UDC PO SCH ×2 (08:25→20:52)
[2016-12-24] MEDS: levETIRAcetam 500 MG/5 ML UDC TUBE SCH ×2 (08:25→20:52)
[2016-12-24] MEDS: METOPROLOL TARTRATE 50 MG TAB PO SCH ×2 (08:25→20:57)
[2016-12-24] MEDS: PANTOPRAZOLE SODIUM 40 MG VIAL IV PUSH SCH ×2 (08:25→21:03)
[2016-12-24] MEDS: POTASSIUM CHLORIDE 25 MEQ EFFERVESCENT TAB TUBE SCH (08:25)
[2016-12-24] MEDS: ASPIRIN 325 MG TAB TUBE SCH (08:25)
[2016-12-24] MEDS: ARTIFICIAL TEARS OPTH SOLN 15 ML BTL EACH EYE SCH ×2 (08:28→20:52)
[2016-12-24] MEDS: NYSTATIN 100,000 U/GM PWD 15 GM BTL TOPICAL SCH ×2 (08:28→20:53)
[2016-12-24] MEDS: SODIUM CHLORIDE 0.65% NASAL SPRAY 45 ML BTL NASAL SCH ×2 (08:29→20:52)
[2016-12-24] MEDS: BACITRACIN TOP OINT 15 GM TUBE TOP SCH ×2 (08:29→20:52)
[2016-12-24] MEDS: KETOCONAZOLE 2% CREAM 15 GM TOPICAL SCH ×2 (08:29→20:53)
--- NOTE | 2016-12-24 10:25 | HHI.PR ---
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 Patient seen and examined today lying in bed comfortably in no apparent distress. Spoke with mother and updated. According to RN no acute events overnight. Tolerating TF. No presence of n/v, emesis or diarrhea. Afebrile. Objective Vitals Vital Signs Date Time Temp Pulse Resp B/P Pulse Ox O2 Delivery O2 Flow Rate FiO2 12/24/16 08:05 91 12/24/16 08:00 97.3 82 20 126/88 98 12/24/16 06:00 97.3 92 19 109/65 100 12/24/16 02:00 83 107/66 97 12/24/16 00:45 98.8 85 18 115/75 98 12/23/16 21:45 98.1 84 19 110/80 99 12/23/16 16:00 97.4 84 18 111/70 98 12/23/16 12:00 97.2 74 18 103/67 93 I/O 12/23/16 12/23/16 12/23/16 12/24/16 12/24/16 12/24/16 07:00 15:00 23:00 07:00 15:00 23:00 Intake Total 1380 ml 1866 ml 830 ml Output Total 850 ml 700 ml 1000 ml 1000 ml Balance -850 ml 680 ml 866 ml -170 ml Intake Oral 0 ml 0 ml IV Total 830 ml Tube Feeding 780 ml 1266 ml Other 600 ml 600 ml Output Urine Total 850 ml 700 ml 1000 ml 1000 ml # Bowel Movements 1 0 Result Diagram: 12/20/16 0822 12/20/16 0822 Imaging Last Impressions Tube Change 12/20/16 0000 Signed Impressions: Service Date/Time: Tuesday, December 20, 2016 14:13 - CONCLUSION: Uncomplicated gastrojejunostomy tube exchange as above. Scott Griffin MD Chest X-Ray 12/06/16 0000 Signed Impressions: Service Date/Time: Tuesday, December 06, 2016 11:07 - CONCLUSION: 1. Hypoinflation with minimal bibasilar atelectatic changes. 2. No confluent infiltrate or effusion. Bobby Gray MD Tube Check 12/04/16 0000 Signed Impressions: Service Date/Time: Sunday, December 04, 2016 17:58 - CONCLUSION: Uncomplicated tube injection as above. the tube is in good position and functions normally. Moises Ramírez MD Abdomen X-Ray 08/31/16 0000 Signed Impressions: Service Date/Time: Wednesday, August 31, 2016 16:36 - CONCLUSION: 1. No acute findings. Mild constipation. Durga Dotson MD Abdomen/Pelvis CT 04/12/16 0000 Signed Impressions: Service Date/Time: Tuesday, April 12, 2016 20:52 - CONCLUSION: 1. 6.4 cm necrotic mass or abscess in the soft tissues posteriorly just below the sacrum associated with some bony destructive change of the lower most sacrum and coccyx with inflammatory changes extending into the ischiorectal fossa and into the presacral retroperitoneum predominantly on the left side. There is associated fairly marked mural thickening of the anal verge and rectum. 2. There is gastrostomy and Arevalo catheter present. Stable abdominal aortic aneurysm. Durga Dotson MD Head Magnetic Resonance Angiography 03/05/16 0000 Signed Impressions: Service Date/Time: Saturday, March 05, 2016 09:26 - CONCLUSION: Persistent high-grade subtotal occlusive stenotic lesions in the distal right vertebral artery and proximal basilar artery with significant improvement in flow and recanalization following initial presentation of thrombosis. Stable interstitial circulation without significant stenosis. 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 There is decreasing restricted diffusion and increasing loss of volume characteristic of a subacute to chronic infarct. No evidence of acute infarct, acute hemorrhage mass or edema. Ernesto Kulkarni MD Head CT 01/16/16 0000 Signed Impressions: Service Date/Time: Saturday, January 16, 2016 10:51 - CONCLUSION: No extensive low density in the brainstem colin more prominent in the right the left extending into the right middle cerebellar peduncle consistent with brainstem infarct nonhemorrhagic acute Wellington West MD Neck Magnetic Resonance Angiography 12/22/15 1445 Signed Impressions: Service Date/Time: Tuesday, December 22, 2015 09:22 - CONCLUSION: Variant origin of the left vertebral artery from the aortic arch. No evidence of carotid stenosis. Glen Zamora MD Head/Brain Mag Res Venography 12/22/15 0000 Signed Impressions: Service Date/Time: Tuesday, December 22, 2015 09:22 - CONCLUSION: Normal MRV. Jonel Jones Jr., MD Objective Remarks GENERAL: Non-verbal, tracking people in room, glasses worn. Not in acute distress. SKIN: Warm and dry. HEENT: Normocephalic. Pupils nonicteric. Nose without bleeding. Airway patent. NECK: Supple, trachea midline. T-tube in place. No JVD. CARDIOVASCULAR: Regular rate and rhythm. No murmur appreciated. RESPIRATORY: Breath sounds equal bilaterally. No accessory muscle use. Trach tube in place. Bedside monitor indicated oxygen saturation was 99%. GASTROINTESTINAL: Abdomen soft, non-tender, nondistended. GJ tube noted, area around insertion was dry, dressing intact. MUSCULOSKELETAL: No cyanosis, or edema. PSYCHIATRIC: Pt non-verbal, he appeared calm and not in distress. Procedures 01/02/16 PEG placement 01/02/16 tracheostomy 07/22/2016 Wide excision of sacral skin wound, biopsy of the cavity lining and debridement. PEG tube replacement 07/29/16 VAC changes- M-W-F 10/23- GJ tube replacement Date of Insertion: Oct 12, 2016 A/P Problem List: (1) CVA (cerebral vascular accident) ICD Code: I63.9 Status: Acute (2) A-fib ICD Code: I48.91 Status: Chronic (3) DM (diabetes mellitus) ICD Code: E11.9 Status: Chronic Assessment and Plan 60 year-old male with past medical history of paroxysmal A. fib, hypertension, stage III non-Hodgkin's lymphoma status post chemotherapy who came into the hospital with altered mental status. 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 Intermittently tracks with eyes. Sister at bedside. - Continue Keppra for seizure prophylaxis. - PT/OT signed off as patient is unable to participate. - No placement available. Appreciate case management assistance. Last CM note indicates continued difficult placement and has medicaid with no accepting facility. Rehab Medicine (Dr. Pickens) following. Chronic respiratory failure secondary to CVA - Status post tracheostomy. Continue pulmonary toilet and bronchodilators as needed. Continue trach care, suctioning. Levsin as needed. - Pulmonary currently following, appreciate assistance. Atrial fibrillation, controlled - Continue rate control with Cardizem and metoprolol. - Echocardiogram in November 2015 shows preserved ejection fraction. Coumadin discontinued secondary to bleeding. - Continue aspirin and prophylactic heparin dose. Hyponatremia - Last NA checked 12/20 135. Will decrease FWF to 150ml q8hr. Recheck BMP in am. History of non-Hodgkin's lymphoma - Status post brain biopsy on December 13 by neurosurgery. Pathology consistent with acute infarct without evidence of lymphoma. Oncology has signed off. Diabetes mellitus Type 2 - Hemoglobin A1c is 7. Continue Levemir. Monitor Accu-Cheks and cover with sliding scale insulin. Overall blood sugar continues well controlled. Decubitus ulcer stage IV - Continue wound care, twice-daily dressing changes. Wound care recommendations last updated 12/12/16. Continue pressure relief measures including turning and positioning. Patient's family has declined a diverting colostomy. Previous Wound culture growing Klebsiella and Enterococcus Faecalis. Previously on Augmentin. Status post wide excision of sacral skin and biopsy of the cavity lining with debridement on 07/22/16. - Continue to monitor for pain. Gastric ulcer, reflux esophagitis - EGD on 07/30/16 showed gastric ulcers. Continue PPI. H&H stable. UTI pseudomonas aeruginosa treated with abx - Resolved. Repeat Ucx 08/28/16 negative. Patient seen by ID (Dr. Alvarez) on 11/28/16. Constipation: - Notes of 11/21/16 indicated pt had diarrhea, C. Diff negative. Imodium PRN. - Last BM 12/22. Severe malnutrition - Dietary last recommendations on 12/17/16. Continue Glucerna 1.0 @ 85 ml/hr to provide 2040 kcals, 85 gms protein and 1740 mls of free water. Water flushes of 30 mls before and after medication administration should be given. - GJ tube plan to be replaced today DVT prophylaxis: SCDs. Heparin 5,000 units sq Q8hr. Discussed with pt's sister, RN, and Dr. Tatum. Discharge Planning Case management involved with discharge planning. As of 12/17/16, CM note patient has Medicaid without any accepting facility. Difficult placement. Problem Qualifiers (1) CVA (cerebral vascular accident): (2) DM (diabetes mellitus): Qualified Code: E11.9 - Type 2 diabetes mellitus without complications Haley Seymour Dec 24, 2016 10:25
[2016-12-24] MEDS: SODIUM CHLOR 0.9% 1000 ML INJ 1,000 ML IV SCH (18:10)
[2016-12-24] MEDS: PARoxetine HCL SUSP 20 MG/10 ML UDC PEG SCH (18:10)
--- NOTE | 2016-12-24 19:24 | HHI.PR ---
Subjective Remarks 60 YO Male with RF, Encephalopathy On Trach collar Awake, some tracking of objects noted Tolerates TF Mother at BS Objective Vital Signs Vital Signs Date Time Temp Pulse Resp B/P Pulse Ox O2 Delivery O2 Flow Rate FiO2 12/24/16 18:06 95 T-piece 28 12/24/16 18:05 95 T-piece 6.00 12/24/16 14:59 97.2 84 18 109/66 95 12/24/16 13:30 96.8 96 20 99/70 96 12/24/16 10:49 98 T-piece 28 12/24/16 10:49 98 T-piece 6.00 28 12/24/16 08:05 91 12/24/16 08:00 97.3 82 20 126/88 98 12/24/16 06:00 97.3 92 19 109/65 100 12/24/16 02:00 83 107/66 97 12/24/16 00:45 98.8 85 18 115/75 98 12/23/16 21:45 98.1 84 19 110/80 99 I/O 12/23/16 12/23/16 12/23/16 12/24/16 12/24/16 12/24/16 07:00 15:00 23:00 07:00 15:00 23:00 Intake Total 1380 ml 1866 ml 830 ml 1785 ml Output Total 850 ml 700 ml 1000 ml 1000 ml 850 ml Balance -850 ml 680 ml 866 ml -170 ml -850 ml 1785 ml Intake Oral 0 ml 0 ml IV Total 830 ml 293 ml Tube Feeding 780 ml 1266 ml 992 ml Other 600 ml 600 ml 500 ml Output Urine Total 850 ml 700 ml 1000 ml 1000 ml 850 ml # Bowel Movements 1 0 3 Result Diagram: 12/20/1682112/20/16821 Objective Remarks GENERAL: Well-nourished, well-developed patient. SKIN: Warm and dry. HEAD: Normocephalic. EYES: No scleral icterus. No injection or drainage. NECK: Supple, trachea midline. No JVD or lymphadenopathy. trach in place CARDIOVASCULAR: Regular rate and rhythm without murmurs, gallops, or rubs. RESPIRATORY: Breath sounds equal bilaterally. No accessory muscle use. GASTROINTESTINAL: Abdomen soft, non-tender, nondistended. MUSCULOSKELETAL: No cyanosis, or edema. BACK: Nontender without obvious deformity. No CVA tenderness. A/P Assessment and Plan Resp Failure, s/p trach Encephalopathy AF DM PLAN: Trach care DW Family at BS. Suction prn Cont. TF Aureliano Grove MD Dec 24, 2016 19:24
[2016-12-25] VITALS (12 sets, daily range): BP systolic 101–122; BP diastolic 68–81; PULSE 76–91; RESP 16–20; TEMP 97–98.3; O2SAT 95–99
[2016-12-25] MEDS: DILTIAZEM HCL 30 MG TAB PEG SCH ×2 (01:00→12:41)
[2016-12-25] MEDS: FREE WATER TUBE SCH ×4 (06:00→17:38)
[2016-12-25] MEDS: HEPARIN SODIUM - SQ 10,000 UNITS/ML VIAL SQ SCH ×3 (06:38→20:41)
[2016-12-25] MEDS: ACETIC ACID 0.25% SOLN 1000 ML IRR BTL IRRIGATION SCH ×3 (06:40→20:42)
[2016-12-25] MEDS: INSULIN ASPART SUPPLEMENTAL SCALE SQ SCH (06:40)
[2016-12-25] MEDS: DOCUSATE SODIUM 100 MG/10 ML UDC PO SCH (09:20)
[2016-12-25] MEDS: ASPIRIN 325 MG TAB TUBE SCH (09:20)
[2016-12-25] MEDS: POTASSIUM CHLORIDE 25 MEQ EFFERVESCENT TAB TUBE SCH (09:20)
[2016-12-25] MEDS: levETIRAcetam 500 MG/5 ML UDC TUBE SCH ×2 (09:21→20:41)
[2016-12-25] MEDS: PANTOPRAZOLE SODIUM 40 MG VIAL IV PUSH SCH ×2 (09:21→20:41)
[2016-12-25] MEDS: METOPROLOL TARTRATE 50 MG TAB PO SCH ×2 (09:21→20:41)
[2016-12-25] MEDS: ARTIFICIAL TEARS OPTH SOLN 15 ML BTL EACH EYE SCH ×2 (09:22→20:41)
[2016-12-25] MEDS: KETOCONAZOLE 2% CREAM 15 GM TOPICAL SCH ×2 (09:22→20:42)
[2016-12-25] MEDS: BACITRACIN TOP OINT 15 GM TUBE TOP SCH ×2 (09:22→20:42)
[2016-12-25] MEDS: SODIUM CHLORIDE 0.65% NASAL SPRAY 45 ML BTL NASAL SCH ×2 (09:22→20:41)
[2016-12-25] MEDS: NYSTATIN 100,000 U/GM PWD 15 GM BTL TOPICAL SCH ×2 (09:22→20:42)
[2016-12-25 10:31] LABS: BICARBONATE 27.2 MEQ/L (21.0-32.0); POTASSIUM 3.7 MEQ/L (3.5-5.1)
--- NOTE | 2016-12-25 13:19 | HHI.PR ---
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 Patient seen and examined. Spoke to RN at bedside, no new complaints overnight. Mother at bedside. Afebrile. Vitals stable at this time. Trach collar in place and connected to wall oxygen. Tolerating TF. Objective Vitals Vital Signs Date Time Temp Pulse Resp B/P Pulse Ox O2 Delivery O2 Flow Rate FiO2 12/25/16 11:58 97.3 78 16 101/71 99 12/25/16 10:57 96 T-piece 5.00 28 12/25/16 10:57 96 T-piece 5.00 28 12/25/16 08:34 97.6 83 16 121/81 98 12/25/16 07:25 76 12/25/16 04:00 97.0 82 20 114/77 95 12/25/16 01:00 76 111/71 12/25/16 00:00 97.0 86 18 122/77 98 12/24/16 20:00 98.6 84 18 115/80 96 12/24/16 18:06 95 T-piece 28 12/24/16 18:05 95 T-piece 6.00 12/24/16 14:59 97.2 84 18 109/66 95 12/24/16 13:30 96.8 96 20 99/70 96 I/O 12/24/16 12/24/16 12/24/16 12/25/16 12/25/16 12/25/16 06:59 14:59 22:59 06:59 14:59 22:59 Intake Total 830 ml 1785 ml 374 ml Output Total 1000 ml 850 ml 1000 ml 500 ml Balance -170 ml -850 ml 1785 ml -626 ml -500 ml Intake Oral 0 ml IV Total 830 ml 293 ml 374 ml Tube Feeding 992 ml Other 500 ml Output Urine Total 1000 ml 850 ml 1000 ml 500 ml # Bowel Movements 1 3 1 Result Diagram: 12/25/16 0810 Imaging Last Impressions Tube Change 12/20/16 0000 Signed Impressions: Service Date/Time: Tuesday, December 20, 2016 14:13 - CONCLUSION: Uncomplicated gastrojejunostomy tube exchange as above. Scott Griffin MD Chest X-Ray 12/06/16 0000 Signed Impressions: Service Date/Time: Tuesday, December 06, 2016 11:07 - CONCLUSION: 1. Hypoinflation with minimal bibasilar atelectatic changes. 2. No confluent infiltrate or effusion. Bobby Gray MD Tube Check 12/04/16 0000 Signed Impressions: Service Date/Time: Sunday, December 04, 2016 17:58 - CONCLUSION: Uncomplicated tube injection as above. the tube is in good position and functions normally. Moises Ramírez MD Abdomen X-Ray 08/31/16 0000 Signed Impressions: Service Date/Time: Wednesday, August 31, 2016 16:36 - CONCLUSION: 1. No acute findings. Mild constipation. Durga Dotson MD Abdomen/Pelvis CT 04/12/16 0000 Signed Impressions: Service Date/Time: Tuesday, April 12, 2016 20:52 - CONCLUSION: 1. 6.4 cm necrotic mass or abscess in the soft tissues posteriorly just below the sacrum associated with some bony destructive change of the lower most sacrum and coccyx with inflammatory changes extending into the ischiorectal fossa and into the presacral retroperitoneum predominantly on the left side. There is associated fairly marked mural thickening of the anal verge and rectum. 2. There is gastrostomy and Arevalo catheter present. Stable abdominal aortic aneurysm. Durga Dotson MD Head Magnetic Resonance Angiography 03/05/16 0000 Signed Impressions: Service Date/Time: Saturday, March 05, 2016 09:26 - CONCLUSION: Persistent high-grade subtotal occlusive stenotic lesions in the distal right vertebral artery and proximal basilar artery with significant improvement in flow and recanalization following initial presentation of thrombosis. Stable interstitial circulation without significant stenosis. 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 There is decreasing restricted diffusion and increasing loss of volume characteristic of a subacute to chronic infarct. No evidence of acute infarct, acute hemorrhage mass or edema. Ernesto Kulkarni MD Head CT 01/16/16 0000 Signed Impressions: Service Date/Time: Saturday, January 16, 2016 10:51 - CONCLUSION: No extensive low density in the brainstem colin more prominent in the right the left extending into the right middle cerebellar peduncle consistent with brainstem infarct nonhemorrhagic acute Wellington West MD Neck Magnetic Resonance Angiography 12/22/15 1445 Signed Impressions: Service Date/Time: Tuesday, December 22, 2015 09:22 - CONCLUSION: Variant origin of the left vertebral artery from the aortic arch. No evidence of carotid stenosis. Glen Zamora MD Head/Brain Mag Res Venography 12/22/15 0000 Signed Impressions: Service Date/Time: Tuesday, December 22, 2015 09:22 - CONCLUSION: Normal MRV. Jonel Jones Jr., MD Objective Remarks GENERAL: Non-verbal, tracking people in room, glasses worn. Not in acute distress. SKIN: Warm and dry. HEENT: Normocephalic. Pupils nonicteric. Nose without bleeding. Airway patent. NECK: Supple, trachea midline. T-tube in place. No JVD. CARDIOVASCULAR: Regular rate and rhythm. No murmur appreciated. RESPIRATORY: Breath sounds equal bilaterally. No accessory muscle use. Trach tube in place. Bedside monitor indicated oxygen saturation was 99%. GASTROINTESTINAL: Abdomen soft, non-tender, nondistended. GJ tube noted, area around insertion was dry, dressing intact. MUSCULOSKELETAL: No cyanosis, or edema. PSYCHIATRIC: Pt non-verbal, he appeared calm and not in distress. Procedures 01/02/16 PEG placement 01/02/16 tracheostomy 07/22/2016 Wide excision of sacral skin wound, biopsy of the cavity lining and debridement. PEG tube replacement 07/29/16 VAC changes- M-W-F /- GJ tube replacement Date of Insertion: Oct 12, 2016 A/P Problem List: (1) CVA (cerebral vascular accident) ICD Code: I63.9 Status: Acute (2) A-fib ICD Code: I48.91 Status: Chronic (3) DM (diabetes mellitus) ICD Code: E11.9 Status: Chronic Assessment and Plan 60 year-old male with past medical history of paroxysmal A. fib, hypertension, stage III non-Hodgkin's lymphoma status post chemotherapy who came into the hospital with altered mental status. 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 Intermittently tracks with eyes. Sister at bedside. - Continue Keppra for seizure prophylaxis. - PT/OT signed off as patient is unable to participate. - No placement available. Appreciate case management assistance. Last CM note indicates continued difficult placement and has medicaid with no accepting facility. Rehab Medicine (Dr. Pickens) following. Chronic respiratory failure secondary to CVA - Status post tracheostomy. Continue pulmonary toilet and bronchodilators as needed. Continue trach care, suctioning. Levsin as needed. - Pulmonary currently following, appreciate assistance. Atrial fibrillation, controlled - Continue rate control with Cardizem and metoprolol. - Echocardiogram in November 2015 shows preserved ejection fraction. Coumadin discontinued secondary to bleeding. - Continue aspirin and prophylactic heparin dose. Hyponatremia - Last NA checked 12/20 135. FWF to 150ml q8hr. NA 138. History of non-Hodgkin's lymphoma - Status post brain biopsy on December 13 by neurosurgery. Pathology consistent with acute infarct without evidence of lymphoma. Oncology has signed off. Diabetes mellitus Type 2 - Hemoglobin A1c is 7. Continue Levemir. Monitor Accu-Cheks and cover with sliding scale insulin. Overall blood sugar continues well controlled. Decubitus ulcer stage IV - Continue wound care, twice-daily dressing changes. Wound care recommendations last updated 12/12/16. Continue pressure relief measures including turning and positioning. Patient's family has declined a diverting colostomy. Previous Wound culture growing Klebsiella and Enterococcus Faecalis. Previously on Augmentin. Status post wide excision of sacral skin and biopsy of the cavity lining with debridement on 07/22/16. - Continue to monitor for pain. Gastric ulcer, reflux esophagitis - EGD on 07/30/16 showed gastric ulcers. Continue PPI. H&H stable. UTI pseudomonas aeruginosa treated with abx - Resolved. Repeat Ucx 08/28/16 negative. Patient seen by ID (Dr. Alvarez) on 11/28/16. Constipation: - Notes of 11/21/16 indicated pt had diarrhea, C. Diff negative. Imodium PRN. - Last BM 12/22. Severe malnutrition - Dietary last recommendations on 12/17/16. Continue Glucerna 1.0 @ 85 ml/hr to provide 2040 kcals, 85 gms protein and 1740 mls of free water. Water flushes of 30 mls before and after medication administration should be given. DVT prophylaxis: SCDs. Heparin 5,000 units sq Q8hr. Discussed with pt's sister, RN, and Dr. Tatum. Discharge Planning Case management involved with discharge planning. As of 12/17/16, CM note patient has Medicaid without any accepting facility. Difficult placement. Problem Qualifiers (1) CVA (cerebral vascular accident): (2) DM (diabetes mellitus): Qualified Code: E11.9 - Type 2 diabetes mellitus without complications Haley Seymour Dec 25, 2016 13:19
--- NOTE | 2016-12-25 16:16 | HHI.PR ---
Subjective Remarks opens eyes on o2 , o2 SAT 96% ON T PIECE NO DITRESS TRACH. [place] Objective Vital Signs Date Time Temp Pulse Resp B/P Pulse Ox O2 Delivery O2 Flow Rate FiO2 12/25/16 11:58 97.3 78 16 101/71 99 12/25/16 10:57 96 T-piece 5.00 28 12/25/16 10:57 96 T-piece 5.00 28 12/25/16 08:34 97.6 83 16 121/81 98 12/25/16 07:25 76 12/25/16 04:00 97.0 82 20 114/77 95 12/25/16 01:00 76 111/71 12/25/16 00:00 97.0 86 18 122/77 98 12/24/16 20:00 98.6 84 18 115/80 96 12/24/16 18:06 95 T-piece 28 12/24/16 18:05 95 T-piece 6.00 I/O 12/24/16 12/24/16 12/24/16 12/25/16 12/25/16 12/25/16 07:00 15:00 23:00 07:00 15:00 23:00 Intake Total 830 ml 1785 ml 374 ml 1154 ml Output Total 1000 ml 850 ml 1000 ml 501 ml Balance -170 ml -850 ml 1785 ml -626 ml 653 ml Intake Oral 0 ml IV Total 830 ml 293 ml 374 ml 254 ml Tube Feeding 992 ml 600 ml Other 500 ml 300 ml Output Urine Total 1000 ml 850 ml 1000 ml 500 ml Stool Total 1 ml # Bowel Movements 0 3 1 Result Diagram: 12/25/16 0810 Procedures 01/02/16 PEG placement 01/02/16 tracheostomy 07/22/2016 Wide excision of sacral skin wound, biopsy of the cavity lining and debridement. PEG tube replacement 07/29/16 Objective Remarks GENERAL: SKIN: Warm and dry. HEAD: Atraumatic. Normocephalic. EYES: Pupils equal and round. No scleral icterus. No injection or drainage. ENT: No nasal bleeding or discharge. Mucous membranes pink and moist. NECK: Trachea midline. No JVD. TRACH. [place] CARDIOVASCULAR: Regular rate and rhythm. RESPIRATORY: No accessory muscle use. Clear to auscultation. Breath sounds equal bilaterally. GASTROINTESTINAL: Abdomen soft, non-tender, nondistended. Hepatic and splenic margins not palpable. MUSCULOSKELETAL: Extremities without clubbing, cyanosis, or edema. No obvious deformities. NEUROLOGICAL: Awake and alert. No obvious cranial nerve deficits. Motor grossly within normal limits. Five out of 5 muscle strength in the arms and legs. Normal speech. PSYCHIATRIC: Appropriate mood and affect; insight and judgment normal. Assessment and Plan Assessment and Plan impression respiratory failure CVA S/P TRACHEOSTOMY PLAN O2 NEEDED PULM. TOILET Brandon Taylor MD Dec 25, 2016 16:16
[2016-12-25] MEDS: PARoxetine HCL SUSP 20 MG/10 ML UDC PEG SCH (18:08)
[2016-12-25] MEDS: SODIUM CHLOR 0.9% 1000 ML INJ 1,000 ML IV SCH (21:45)
[2016-12-26] VITALS (10 sets, daily range): BP systolic 106–169; BP diastolic 69–102; PULSE 78–95; RESP 18–20; TEMP 96.3–97.9; O2SAT 93–99
[2016-12-26] MEDS: DILTIAZEM HCL 30 MG TAB PEG SCH ×2 (01:25→13:24)
[2016-12-26] MEDS: FREE WATER TUBE SCH ×4 (01:25→17:40)
[2016-12-26] MEDS: HEPARIN SODIUM - SQ 10,000 UNITS/ML VIAL SQ SCH ×3 (05:11→22:18)
[2016-12-26] MEDS: ACETIC ACID 0.25% SOLN 1000 ML IRR BTL IRRIGATION SCH ×3 (05:13→22:18)
[2016-12-26] MEDS: INSULIN ASPART SUPPLEMENTAL SCALE SQ SCH (06:20)
--- NOTE | 2016-12-26 08:26 | HHI.PR ---
Subjective Remarks opens eyes on o2 , o2 SAT 96% ON T PIECE NO DITRESS TRACH. [place] Objective Vital Signs Date Time Temp Pulse Resp B/P Pulse Ox O2 Delivery O2 Flow Rate FiO2 12/26/16 04:00 97.3 86 18 106/70 93 12/26/16 00:19 98 T-piece 6.00 28 12/26/16 00:00 97.9 91 20 112/77 97 12/25/16 21:53 98 T-piece 6.00 28 12/25/16 21:53 98 T-piece 6.00 28 12/25/16 21:00 78 12/25/16 20:55 78 12/25/16 20:50 99 T-Piece 28 12/25/16 20:00 97.4 84 18 105/73 99 12/25/16 16:27 98.3 86 16 115/68 96 12/25/16 11:58 97.3 78 16 101/71 99 12/25/16 10:57 96 T-piece 5.00 12/25/16 10:57 96 T-piece 5.00 12/25/16 08:34 97.6 83 16 121/81 98 I/O 12/25/16 12/25/16 12/25/16 12/26/16 12/26/16 12/26/16 07:00 15:00 23:00 07:00 15:00 23:00 Intake Total 374 ml 1154 ml 450 ml Output Total 1000 ml 501 ml 450 ml 750 ml Balance -626 ml 653 ml -450 ml -300 ml IV Total 374 ml 254 ml Tube Feeding 600 ml Other 300 ml 450 ml Output Urine Total 1000 ml 500 ml 450 ml 750 ml Stool Total 1 ml # Bowel Movements 1 2 Result Diagram: 12/25/16 0810 Procedures 01/02/16 PEG placement 01/02/16 tracheostomy 07/22/2016 Wide excision of sacral skin wound, biopsy of the cavity lining and debridement. PEG tube replacement 07/29/16 Objective Remarks GENERAL: SKIN: Warm and dry. HEAD: Atraumatic. Normocephalic. EYES: Pupils equal and round. No scleral icterus. No injection or drainage. ENT: No nasal bleeding or discharge. Mucous membranes pink and moist. NECK: Trachea midline. No JVD. TRACH. [place] CARDIOVASCULAR: Regular rate and rhythm. RESPIRATORY: No accessory muscle use. Clear to auscultation. Breath sounds equal bilaterally. GASTROINTESTINAL: Abdomen soft, non-tender, nondistended. Hepatic and splenic margins not palpable. MUSCULOSKELETAL: Extremities without clubbing, cyanosis, or edema. No obvious deformities. NEUROLOGICAL: Awake and alert. No obvious cranial nerve deficits. Motor grossly within normal limits. Five out of 5 muscle strength in the arms and legs. Normal speech. PSYCHIATRIC: Appropriate mood and affect; insight and judgment normal. Assessment and Plan Assessment and Plan impression respiratory failure CVA S/P TRACHEOSTOMY PLAN O2 NEEDED PULM. TOILET Brandon,Brandon Cook MD Dec 26, 2016 08:26
[2016-12-26] MEDS: KETOCONAZOLE 2% CREAM 15 GM TOPICAL SCH ×2 (09:00→20:34)
[2016-12-26] MEDS: BACITRACIN TOP OINT 15 GM TUBE TOP SCH ×2 (09:00→20:34)
[2016-12-26] MEDS: SODIUM CHLORIDE 0.65% NASAL SPRAY 45 ML BTL NASAL SCH ×2 (09:00→20:33)
[2016-12-26] MEDS: POTASSIUM CHLORIDE 25 MEQ EFFERVESCENT TAB TUBE SCH (09:08)
[2016-12-26] MEDS: METOPROLOL TARTRATE 50 MG TAB PO SCH ×2 (09:08→20:34)
[2016-12-26] MEDS: MAGNESIUM HYDROXIDE SUSP 30 ML CUP PO SCH (09:08)
[2016-12-26] MEDS: ASPIRIN 325 MG TAB TUBE SCH (09:08)
[2016-12-26] MEDS: levETIRAcetam 500 MG/5 ML UDC TUBE SCH ×2 (09:08→20:33)
[2016-12-26] MEDS: NYSTATIN 100,000 U/GM PWD 15 GM BTL TOPICAL SCH ×2 (09:10→20:34)
[2016-12-26] MEDS: ARTIFICIAL TEARS OPTH SOLN 15 ML BTL EACH EYE SCH ×2 (09:10→20:33)
[2016-12-26] MEDS: PANTOPRAZOLE SODIUM 40 MG VIAL IV PUSH SCH ×2 (10:53→22:15)
--- NOTE | 2016-12-26 10:58 | HHI.PR ---
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 Patient seen and examined. Family at bedside. Spoke to bedside RN, no acute events overnight. No new changes. Afebrile. VSS. Positive BM. Objective Vitals Vital Signs Date Time Temp Pulse Resp B/P Pulse Ox O2 Delivery O2 Flow Rate FiO2 12/26/16 08:48 96.6 95 18 139/80 97 12/26/16 08:27 99 T-piece 4.00 28 12/26/16 04:00 97.3 86 18 106/70 93 12/26/16 00:19 98 T-piece 6.00 28 12/26/16 00:00 97.9 91 20 112/77 97 12/25/16 21:53 98 T-piece 6.00 28 12/25/16 21:53 98 T-piece 6.00 28 12/25/16 21:00 78 12/25/16 20:55 78 12/25/16 20:50 99 T-Piece 28 12/25/16 20:00 97.4 84 18 105/73 99 12/25/16 16:27 98.3 86 16 115/68 96 12/25/16 11:58 97.3 78 16 101/71 99 12/25/16 10:57 96 T-piece 5.00 28 12/25/16 10:57 96 T-piece 5.00 28 I/O 12/25/16 12/25/16 12/25/16 12/26/16 12/26/16 12/26/16 07:00 15:00 23:00 07:00 15:00 23:00 Intake Total 374 ml 1154 ml 450 ml Output Total 1000 ml 501 ml 450 ml 750 ml Balance -626 ml 653 ml -450 ml -300 ml IV Total 374 ml 254 ml Tube Feeding 600 ml Other 300 ml 450 ml Output Urine Total 1000 ml 500 ml 450 ml 750 ml Stool Total 1 ml # Bowel Movements 1 2 Result Diagram: 12/25/16 0810 Imaging Last Impressions Tube Change 12/20/16 0000 Signed Impressions: Service Date/Time: Tuesday, December 20, 2016 14:13 - CONCLUSION: Uncomplicated gastrojejunostomy tube exchange as above. Scott Griffin MD Chest X-Ray 12/06/16 0000 Signed Impressions: Service Date/Time: Tuesday, December 06, 2016 11:07 - CONCLUSION: 1. Hypoinflation with minimal bibasilar atelectatic changes. 2. No confluent infiltrate or effusion. Bobby Gray MD Tube Check 12/04/16 0000 Signed Impressions: Service Date/Time: Sunday, December 04, 2016 17:58 - CONCLUSION: Uncomplicated tube injection as above. the tube is in good position and functions normally. Moises Ramírez MD Abdomen X-Ray 08/31/16 0000 Signed Impressions: Service Date/Time: Wednesday, August 31, 2016 16:36 - CONCLUSION: 1. No acute findings. Mild constipation. Durga Dotsno MD Abdomen/Pelvis CT 04/12/16 0000 Signed Impressions: Service Date/Time: Tuesday, April 12, 2016 20:52 - CONCLUSION: 1. 6.4 cm necrotic mass or abscess in the soft tissues posteriorly just below the sacrum associated with some bony destructive change of the lower most sacrum and coccyx with inflammatory changes extending into the ischiorectal fossa and into the presacral retroperitoneum predominantly on the left side. There is associated fairly marked mural thickening of the anal verge and rectum. 2. There is gastrostomy and Arevalo catheter present. Stable abdominal aortic aneurysm. Durga Dotson MD Head Magnetic Resonance Angiography 03/05/16 0000 Signed Impressions: Service Date/Time: Saturday, March 05, 2016 09:26 - CONCLUSION: Persistent high-grade subtotal occlusive stenotic lesions in the distal right vertebral artery and proximal basilar artery with significant improvement in flow and recanalization following initial presentation of thrombosis. Stable interstitial circulation without significant stenosis. 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 There is decreasing restricted diffusion and increasing loss of volume characteristic of a subacute to chronic infarct. No evidence of acute infarct, acute hemorrhage mass or edema. Ernesto Kulkarni MD Head CT 01/16/16 0000 Signed Impressions: Service Date/Time: Saturday, January 16, 2016 10:51 - CONCLUSION: No extensive low density in the brainstem colin more prominent in the right the left extending into the right middle cerebellar peduncle consistent with brainstem infarct nonhemorrhagic acute Wellington West MD Neck Magnetic Resonance Angiography 12/22/15 1445 Signed Impressions: Service Date/Time: Tuesday, December 22, 2015 09:22 - CONCLUSION: Variant origin of the left vertebral artery from the aortic arch. No evidence of carotid stenosis. Glen Zamora MD Head/Brain Mag Res Venography 12/22/15 0000 Signed Impressions: Service Date/Time: Tuesday, December 22, 2015 09:22 - CONCLUSION: Normal MRV. Jonel Jones Jr., MD Objective Remarks GENERAL: Non-verbal, tracking people in room, glasses worn. Not in acute distress. SKIN: Warm and dry. HEENT: Normocephalic. Pupils nonicteric. Nose without bleeding. Airway patent. NECK: Supple, trachea midline. T-tube in place. No JVD. CARDIOVASCULAR: Regular rate and rhythm. No murmur appreciated. RESPIRATORY: Breath sounds equal bilaterally. No accessory muscle use. Trach tube in place. Bedside monitor indicated oxygen saturation was 99%. GASTROINTESTINAL: Abdomen soft, non-tender, nondistended. GJ tube noted, area around insertion was dry, dressing intact. MUSCULOSKELETAL: No cyanosis, or edema. PSYCHIATRIC: Pt non-verbal, he appeared calm and not in distress. Procedures 01/02/16 PEG placement 01/02/16 tracheostomy 07/22/2016 Wide excision of sacral skin wound, biopsy of the cavity lining and debridement. PEG tube replacement 07/29/16 VAC changes- M-W-F 4/- GJ tube replacement Date of Insertion: Oct 12, 2016 A/P Problem List: (1) CVA (cerebral vascular accident) ICD Code: I63.9 Status: Acute (2) A-fib ICD Code: I48.91 Status: Chronic (3) DM (diabetes mellitus) ICD Code: E11.9 Status: Chronic Assessment and Plan 60 year-old male with past medical history of paroxysmal A. fib, hypertension, stage III non-Hodgkin's lymphoma status post chemotherapy who came into the hospital with altered mental status. 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 Intermittently tracks with eyes. Sister at bedside. - Continue Keppra for seizure prophylaxis. - PT/OT signed off as patient is unable to participate. - No placement available. Appreciate case management assistance. Last CM note indicates continued difficult placement and has medicaid with no accepting facility. Rehab Medicine (Dr. Pickens) following. Chronic respiratory failure secondary to CVA - Status post tracheostomy. Continue pulmonary toilet and bronchodilators as needed. Continue trach care, suctioning. Levsin as needed. - Pulmonary currently following, appreciate assistance. Atrial fibrillation, controlled - Continue rate control with Cardizem and metoprolol. - Echocardiogram in November 2015 shows preserved ejection fraction. Coumadin discontinued secondary to bleeding. - Continue aspirin and prophylactic heparin dose. Hyponatremia - Last NA checked 12/20 135. FWF to 150ml q8hr. NA 138. History of non-Hodgkin's lymphoma - Status post brain biopsy on December 13 by neurosurgery. Pathology consistent with acute infarct without evidence of lymphoma. Oncology has signed off. Diabetes mellitus Type 2 - Hemoglobin A1c is 7. Monitor Accu-Cheks and cover with sliding scale insulin. Overall blood sugar continues well controlled. Decubitus ulcer stage IV - Continue wound care, twice-daily dressing changes. Wound care recommendations last updated 12/12/16. Continue pressure relief measures including turning and positioning. Patient's family has declined a diverting colostomy. Previous Wound culture growing Klebsiella and Enterococcus Faecalis. Previously on Augmentin. Status post wide excision of sacral skin and biopsy of the cavity lining with debridement on 07/22/16. - Continue to monitor for pain. Gastric ulcer, reflux esophagitis - EGD on 07/30/16 showed gastric ulcers. Continue PPI. H&H stable. UTI pseudomonas aeruginosa treated with abx - Resolved. Repeat Ucx 08/28/16 negative. Patient seen by ID (Dr. Alvarez) on 11/28/16. Constipation: - Notes of 11/21/16 indicated pt had diarrhea, C. Diff negative. Imodium PRN. - Last BM 12/26. Severe malnutrition - Dietary last recommendations on 12/17/16. Continue Glucerna 1.0 @ 85 ml/hr to provide 2040 kcals, 85 gms protein and 1740 mls of free water. Water flushes of 30 mls before and after medication administration should be given. DVT prophylaxis: SCDs. Heparin 5,000 units sq Q8hr. Discussed with pt's sister, RN, and Dr. Tatum. Discharge Planning Difficult placement. Last CM note 12/25/16 CM spoke with Jolene avendano [facility] residential beds - Jolene stated may be able to reach decision perhaps later in week, stated "not denied but not accepted either" at this time . Jolene to call CM with a decision later in week. CM also gave referrals to [facility] and [facility] who have residential beds - efaxed info to them and CM waiting for a response. Gave referral to [facility] who has terminal manager beds and provided/gave access through the [employer] portal per their request - CM spoke with Chelsey there. CM also called [facility], [facility], and [facility] - none have terminal manager beds. Pedro URIARTE Problem Qualifiers (1) CVA (cerebral vascular accident): (2) DM (diabetes mellitus): Qualified Code: E11.9 - Type 2 diabetes mellitus without complications Haley Seymour Dec 26, 2016 10:58
[2016-12-26] MEDS: PARoxetine HCL SUSP 20 MG/10 ML UDC PEG SCH (17:59)
[2016-12-26] MEDS: SODIUM CHLOR 0.9% 1000 ML INJ 1,000 ML IV SCH (20:34)
[2016-12-27] VITALS (7 sets, daily range): BP systolic 111–131; BP diastolic 69–81; PULSE 81–97; RESP 18–22; TEMP 95.3–98.1; O2SAT 92–99
[2016-12-27] MEDS: FREE WATER TUBE SCH ×4 (00:54→18:00)
[2016-12-27] MEDS: DILTIAZEM HCL 30 MG TAB PEG SCH ×2 (01:28→12:46)
[2016-12-27] MEDS: HEPARIN SODIUM - SQ 10,000 UNITS/ML VIAL SQ SCH ×3 (05:05→21:27)
[2016-12-27] MEDS: ACETIC ACID 0.25% SOLN 1000 ML IRR BTL IRRIGATION SCH ×3 (05:05→21:30)
[2016-12-27] MEDS: INSULIN ASPART SUPPLEMENTAL SCALE SQ SCH (06:28)
[2016-12-27] MEDS: KETOCONAZOLE 2% CREAM 15 GM TOPICAL SCH ×2 (09:00→21:00)
[2016-12-27] MEDS: METOPROLOL TARTRATE 50 MG TAB PO SCH (09:00)
[2016-12-27] MEDS: MAGNESIUM HYDROXIDE SUSP 30 ML CUP PO SCH (09:00)
[2016-12-27] MEDS: ASPIRIN 325 MG TAB TUBE SCH (09:14)
[2016-12-27] MEDS: POTASSIUM CHLORIDE 25 MEQ EFFERVESCENT TAB TUBE SCH (09:14)
[2016-12-27] MEDS: levETIRAcetam 500 MG/5 ML UDC TUBE SCH ×2 (09:15→21:27)
[2016-12-27] MEDS: PANTOPRAZOLE SODIUM 40 MG VIAL IV PUSH SCH ×2 (09:21→21:26)
[2016-12-27] MEDS: BACITRACIN TOP OINT 15 GM TUBE TOP SCH ×2 (09:26→21:29)
[2016-12-27] MEDS: NYSTATIN 100,000 U/GM PWD 15 GM BTL TOPICAL SCH ×2 (09:26→21:29)
[2016-12-27] MEDS: ARTIFICIAL TEARS OPTH SOLN 15 ML BTL EACH EYE SCH ×2 (09:26→21:28)
[2016-12-27] MEDS: SODIUM CHLORIDE 0.65% NASAL SPRAY 45 ML BTL NASAL SCH ×2 (09:26→21:28)
--- NOTE | 2016-12-27 09:53 | HHI.PR ---
Subjective Remarks At baseline. Normal BM. Feeding tube is working well. Discussed with the family at bedside at length. al questions answered. Objective Vitals Vital Signs Date Time Temp Pulse Resp B/P Pulse Ox O2 Delivery O2 Flow Rate FiO2 12/27/16 09:48 96 Trach Collar 6.00 28 12/27/16 09:09 95.3 92 22 116/71 96 12/27/16 04:00 97.7 81 20 112/70 99 12/27/16 00:00 98.1 84 18 122/81 92 12/26/16 22:13 78 12/26/16 21:00 97 T-Piece 28 12/26/16 20:00 97.2 169/102 96 12/26/16 16:35 96.3 84 18 109/69 99 12/26/16 12:06 96.4 82 18 108/69 98 I/O 12/26/16 12/26/16 12/26/16 12/27/16 12/27/16 12/27/16 07:00 15:00 23:00 07:00 15:00 23:00 Intake Total 450 ml 4319 ml 633 ml Output Total 750 ml 951 ml 2400 ml Balance -300 ml 3368 ml -1767 ml IV Total 1817 ml Tube Feeding 2202 ml 433 ml Other 450 ml 300 ml 200 ml Output Urine Total 750 ml 950 ml 2400 ml Stool Total 1 ml # Bowel Movements 2 4 Result Diagram: 12/25/16 0810 Imaging Last Impressions Tube Change 12/20/16 0000 Signed Impressions: Service Date/Time: Tuesday, December 20, 2016 14:13 - CONCLUSION: Uncomplicated gastrojejunostomy tube exchange as above. Scott Griffin MD Chest X-Ray 12/06/16 0000 Signed Impressions: Service Date/Time: Tuesday, December 06, 2016 11:07 - CONCLUSION: 1. Hypoinflation with minimal bibasilar atelectatic changes. 2. No confluent infiltrate or effusion. Bobby Gray MD Tube Check 12/04/16 0000 Signed Impressions: Service Date/Time: Sunday, December 04, 2016 17:58 - CONCLUSION: Uncomplicated tube injection as above. the tube is in good position and functions normally. Moises Ramírez MD Abdomen X-Ray 08/31/16 0000 Signed Impressions: Service Date/Time: Wednesday, August 31, 2016 16:36 - CONCLUSION: 1. No acute findings. Mild constipation. Durga Dotson MD Abdomen/Pelvis CT 04/12/16 0000 Signed Impressions: Service Date/Time: Tuesday, April 12, 2016 20:52 - CONCLUSION: 1. 6.4 cm necrotic mass or abscess in the soft tissues posteriorly just below the sacrum associated with some bony destructive change of the lower most sacrum and coccyx with inflammatory changes extending into the ischiorectal fossa and into the presacral retroperitoneum predominantly on the left side. There is associated fairly marked mural thickening of the anal verge and rectum. 2. There is gastrostomy and Arevalo catheter present. Stable abdominal aortic aneurysm. Durga Dotson MD Head Magnetic Resonance Angiography 03/05/16 0000 Signed Impressions: Service Date/Time: Saturday, March 05, 2016 09:26 - CONCLUSION: Persistent high-grade subtotal occlusive stenotic lesions in the distal right vertebral artery and proximal basilar artery with significant improvement in flow and recanalization following initial presentation of thrombosis. Stable interstitial circulation without significant stenosis. 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 There is decreasing restricted diffusion and increasing loss of volume characteristic of a subacute to chronic infarct. No evidence of acute infarct, acute hemorrhage mass or edema. Ernesto Kulkarni MD Head CT 01/16/16 0000 Signed Impressions: Service Date/Time: Saturday, January 16, 2016 10:51 - CONCLUSION: No extensive low density in the brainstem colin more prominent in the right the left extending into the right middle cerebellar peduncle consistent with brainstem infarct nonhemorrhagic acute Wellington West MD Neck Magnetic Resonance Angiography 12/22/15 1445 Signed Impressions: Service Date/Time: Tuesday, December 22, 2015 09:22 - CONCLUSION: Variant origin of the left vertebral artery from the aortic arch. No evidence of carotid stenosis. Glen Zamora MD Head/Brain Mag Res Venography 12/22/15 0000 Signed Impressions: Service Date/Time: Tuesday, December 22, 2015 09:22 - CONCLUSION: Normal MRV. Jonel Jones Jr., MD Objective Remarks Sacral ulcer with appropriate wound care GENERAL: This is a well-nourished, well-developed patient, eyes closed CARDIOVASCULAR: Sinus regular rate without murmurs, gallops, or rubs. RESPIRATORY: Tracheostomy Clear to auscultation. Breath sounds equal bilaterally. No wheezes, rales, or rhonchi. GASTROINTESTINAL: PEG tube Abdomen soft, non-tender, nondistended. Normal active bowel sounds MUSCULOSKELETAL: Extremities without clubbing, cyanosis, or edema. NEURO: Encephalopathic, sleeping Procedures 01/02/16 PEG placement 01/02/16 tracheostomy 07/22/2016 Wide excision of sacral skin wound, biopsy of the cavity lining and debridement. 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 Tracks with his eyes. Continue Keppra for seizure prophylaxis. PT/OT signed off as patient is unable to participate. -Need placement. Difficult. Appreciate case management assistance. 12/02/16: Rehab Medicine (Dr. Pickens) saw pt on 12/04/16, rec's on chart. Chronic respiratory failure -Secondary to CVA. Status post tracheostomy. Continue pulmonary toilet and bronchodilators as needed. Continue trach care, suctioning. Levsin as needed. -Pulmonary currently following . Appreciate assistance. -Pt noted to have oxygenation (per bedside monitor) improvement noted after pt was repositioned and he received a breathing treatment. Oxygen saturation was noted to be 95% on follow-up visit. -12/06/16 pt noted to have Rhonchi for second day, chest x-ray ordered. No acute findings noted. pt without cough and fever. monitor. -12/07/16 Rhonchi not present upon exam. Discussed with Dr. Leal and he advised using Mucomyst should rhonchi recur. Dr. Taylor with pulmonology continues to follow Atrial fibrillation -Continue rate control with Cardizem and metoprolol. Echocardiogram in November 2015 shows preserved ejection fraction. Coumadin discontinued secondary to bleeding. Rate controlled. Continue aspirin and prophylactic heparin dose. History of non-Hodgkin's lymphoma - Status post brain biopsy on December 13 by neurosurgery. Pathology consistent with acute infarct without evidence of lymphoma. Oncology has signed all Diabetes mellitus, controlled A1c 7 -Hemoglobin A1c is 7. Continue Levemir. Monitor Accu-Cheks and cover with sliding scale insulin. Overall blood sugar continues well controlled. Decubitus ulcer stage IV -Continue wound care, twice-daily dressing changes. Wound care recommendations. Continue pressure relief measures including turning and positioning. Patient's family has declined a diverting colostomy. Previous Wound culture growing Klebsiella. on Augmentin. Status post wide excision of sacral skin and biopsy of the cavity lining with debridement on 07/22/16. Continue scheduled [place] every 8 hours. -Continue to monitor for pain. Gastric ulcer, reflux esophagitis - EGD on 07/30/16 showed gastric ulcers. Appreciate GI recommendations. Continue PPI. H&H stable as of last recheck.. UTI pseudomonas aeruginosa treated with abx -Resolved. - Repeat Ucx 08/28/16 negative. -Pt seen by ID (Dr. Alvarez) on 11/28/16. Constipation: -Having regular bowel movements. -on lactulose. Monitor. -Notes of 11/21/16 indicated pt had diarrhea, he was checked for C. Diff and was negative. Imodium to be used. FEN: Continue Nepro tube feeds with free water flushes. Appreciate dietary assistance. 12/02/16: Per SUSAN Huizar to be consulted to replace GJ tube. -pt to have his GJ tube replaced later today (12/03/16). Replacement procedure did not occur on 12/03/16 and is being delayed until later today (12/04/16). -GJ tube replaced on 12/04/16. Per IR physician's note, no obstruction found and tube was in the correct position and operating normally. 12/07/16 J tube is clogged, nursing has applied water as well as soda to the line to try and flush the line with no progress at this time. G tube is patent and will use for feeding and medication. May need to consider increased rate of delivery to prevent clogging as well as more frequent flushing should patency of J tube be regained. 12/09 Patient using Gtube - flushed by nurse, continue feedings per dietary recommendations. DVT prophylaxis: SCDs/ subq heparin. Discussed with pt's mother and ex- (at bedside), RN (bedside). Discharge Planning Per CM: pt has no payor source for rehab, declined by multiple facilities. Difficult DC. CM following for DC plan Problem Qualifiers (1) CVA (cerebral vascular accident): (2) DM (diabetes mellitus): Qualified Code: E11.9 - Type 2 diabetes mellitus without complications Nahomy Tatum MD Dec 27, 2016 09:53
[2016-12-27] MEDS: PARoxetine HCL SUSP 20 MG/10 ML UDC PEG SCH (18:04)
[2016-12-27] MEDS: SENNOSIDES SYRUP 8.8 MG/5 ML CUP PEG SCH (18:04)
--- NOTE | 2016-12-27 18:04 | PD.WCN.NOT ---
Wound Consult Additional Information: Late entry. Patient seen earlier on for dressing change to sacral area. Patient was assisted to his left side for removal of abd pad, 4x4 and yasemin. Wound was cleansed with wound cleanser and gauze. Wound is measuring 3.1cm x 1.6cm x 3.8cm with bone and muscle visualized. Periwound is discolored and intact. Wound was gently and lightly packed with betadine soaked rolled gauze and covered with a sterile 4x4 and abd pad after applying Calazime skin protectant paste to periwound. ABD pad held in place with tape on edges. Wound is stable and no new recommendations at this time. Neg Pressure Wound Therapy Wound Location Wound Location: Sacrum Wound Description Length: 3.1cm Width: 1.6cm Depth: 3.8cm Underminincm from 1 o'clock to 5 o'clock Wound bed appearance: Bone and muscle visualized Periwound appearance: Other (Discolored and intact) Ting Richards [facility] Dec 27, 2016 18:04
--- NOTE | 2016-12-27 18:40 | HHI.PR ---
Subjective Remarks opens eyes on o2 , o2 SAT 97% ON T PIECE NO DITRESS TRACH. [place] Objective Vital Signs Date Time Temp Pulse Resp B/P Pulse Ox O2 Delivery O2 Flow Rate FiO2 12/27/16 16:34 96.0 96 22 116/70 97 12/27/16 12:20 96.2 90 22 111/69 97 12/27/16 09:48 96 Trach Collar 6.00 28 12/27/16 09:09 95.3 92 22 116/71 96 12/27/16 08:30 95 Trach Collar 6.00 28 T-Piece 12/27/16 04:00 97.7 81 20 112/70 99 12/27/16 00:00 98.1 84 18 122/81 92 12/26/16 22:13 78 12/26/16 21:00 97 T-Piece 28 12/26/16 20:00 97.2 169/102 96 I/O 12/26/16 12/26/16 12/26/16 12/27/16 12/27/16 12/27/16 07:00 15:00 23:00 07:00 15:00 23:00 Intake Total 450 ml 4319 ml 633 ml 688 ml 370 ml Output Total 750 ml 951 ml 2400 ml 1250 ml Balance -300 ml 3368 ml -1767 ml 688 ml -880 ml IV Total 1817 ml 449 ml 123 ml Tube Feeding 2202 ml 433 ml 239 ml 247 ml Other 450 ml 300 ml 200 ml Output Urine Total 750 ml 950 ml 2400 ml 1250 ml Stool Total 1 ml # Bowel Movements 2 4 Result Diagram: 12/25/16 0810 Procedures 01/02/16 PEG placement 01/02/16 tracheostomy 07/22/2016 Wide excision of sacral skin wound, biopsy of the cavity lining and debridement. PEG tube replacement 07/29/16 Objective Remarks GENERAL: SKIN: Warm and dry. HEAD: Atraumatic. Normocephalic. EYES: Pupils equal and round. No scleral icterus. No injection or drainage. ENT: No nasal bleeding or discharge. Mucous membranes pink and moist. NECK: Trachea midline. No JVD. TRACH. [place] CARDIOVASCULAR: Regular rate and rhythm. RESPIRATORY: No accessory muscle use. Clear to auscultation. Breath sounds equal bilaterally. GASTROINTESTINAL: Abdomen soft, non-tender, nondistended. Hepatic and splenic margins not palpable. MUSCULOSKELETAL: Extremities without clubbing, cyanosis, or edema. No obvious deformities. NEUROLOGICAL: Awake and alert. No obvious cranial nerve deficits. Motor grossly within normal limits. Five out of 5 muscle strength in the arms and legs. Normal speech. PSYCHIATRIC: Appropriate mood and affect; insight and judgment normal. Assessment and Plan Assessment and Plan impression respiratory failure CVA S/P TRACHEOSTOMY PLAN O2 NEEDED PULM. TOILET Brandon Taylor MD Dec 27, 2016 18:40
[2016-12-27] MEDS: SODIUM CHLOR 0.9% 1000 ML INJ 1,000 ML IV SCH (19:45)
[2016-12-27] MEDS: METOPROLOL TARTRATE 25 MG TAB PEG SCH (21:25)
[2016-12-28] VITALS (11 sets, daily range): BP systolic 116–142; BP diastolic 72–91; PULSE 86–98; RESP 18–20; TEMP 96.6–99; O2SAT 94–98
[2016-12-28] MEDS: DILTIAZEM HCL 30 MG TAB PEG SCH ×2 (02:11→13:17)
[2016-12-28] MEDS: FREE WATER TUBE SCH ×5 (06:00→23:03)
[2016-12-28] MEDS: ACETIC ACID 0.25% SOLN 1000 ML IRR BTL IRRIGATION SCH ×3 (06:37→23:03)
[2016-12-28] MEDS: INSULIN ASPART SUPPLEMENTAL SCALE SQ SCH (06:37)
[2016-12-28] MEDS: HEPARIN SODIUM - SQ 10,000 UNITS/ML VIAL SQ SCH ×3 (06:37→20:59)
[2016-12-28] MEDS: ASPIRIN 325 MG TAB TUBE SCH (09:00)
[2016-12-28] MEDS: METOPROLOL TARTRATE 25 MG TAB PEG SCH ×2 (09:00→20:58)
[2016-12-28] MEDS: SODIUM CHLORIDE 0.65% NASAL SPRAY 45 ML BTL NASAL SCH ×2 (09:00→20:58)
[2016-12-28] MEDS: levETIRAcetam 500 MG/5 ML UDC TUBE SCH ×2 (09:00→20:59)
[2016-12-28] MEDS: BACITRACIN TOP OINT 15 GM TUBE TOP SCH ×2 (09:00→20:59)
[2016-12-28] MEDS: ARTIFICIAL TEARS OPTH SOLN 15 ML BTL EACH EYE SCH ×2 (09:00→20:59)
[2016-12-28] MEDS: NYSTATIN 100,000 U/GM PWD 15 GM BTL TOPICAL SCH ×2 (09:00→20:59)
[2016-12-28] MEDS: KETOCONAZOLE 2% CREAM 15 GM TOPICAL SCH ×2 (09:00→21:25)
[2016-12-28] MEDS: MAGNESIUM HYDROXIDE SUSP 30 ML CUP PEG SCH (09:01)
[2016-12-28] MEDS: POTASSIUM CHLORIDE 25 MEQ EFFERVESCENT TAB TUBE SCH (09:01)
[2016-12-28] MEDS: LACTULOSE SYRUP 20 GM/30 ML CUP PEG SCH (09:01)
[2016-12-28] MEDS: PANTOPRAZOLE SODIUM 40 MG VIAL IV PUSH SCH ×2 (09:19→21:00)
--- NOTE | 2016-12-28 15:58 | HHI.PR ---
Subjective Remarks Patient had a bowel movement in the morning. He is changed which currently by FLEET MANAGER/DISPATCH. Family at bedside. No events overnight. However I'm paged by the nurse and that the the feeding tube is leaking. We'll consult IR for placement of feeding tube Objective Vitals Vital Signs Date Time Temp Pulse Resp B/P Pulse Ox O2 Delivery O2 Flow Rate FiO2 12/28/16 13:05 99.0 86 20 116/75 96 12/28/16 09:44 98 T-piece 28 12/28/16 09:44 98 T-piece 28 12/28/16 08:34 98.0 94 19 116/72 94 12/28/16 07:22 92 12/28/16 04:00 98.2 95 18 120/73 94 12/28/16 00:00 97.0 98 18 133/81 98 12/27/16 21:30 97 Trach Collar 6.00 28 T-Piece 12/27/16 20:00 95.6 97 20 131/79 99 12/27/16 16:34 96.0 96 22 116/70 97 I/O 12/27/16 12/27/16 12/27/16 12/28/16 12/28/16 12/28/16 07:00 15:00 23:00 07:00 15:00 23:00 Intake Total 633 ml 688 ml 802 ml 1062 ml Output Total 2400 ml 1250 ml 2200 ml 450 ml Balance -1767 ml 688 ml -448 ml -1138 ml -450 ml IV Total 449 ml 359 ml 467 ml Tube Feeding 433 ml 239 ml 443 ml 295 ml Other 200 ml 300 ml Output Urine Total 2400 ml 1250 ml 2200 ml 450 ml # Bowel Movements 4 1 2 Result Diagram: 12/25/16 0810 Imaging Last Impressions Tube Change 12/20/16 0000 Signed Impressions: Service Date/Time: Tuesday, December 20, 2016 14:13 - CONCLUSION: Uncomplicated gastrojejunostomy tube exchange as above. Scott Griffin MD Chest X-Ray 12/06/16 0000 Signed Impressions: Service Date/Time: Tuesday, December 06, 2016 11:07 - CONCLUSION: 1. Hypoinflation with minimal bibasilar atelectatic changes. 2. No confluent infiltrate or effusion. Bobby Gray MD Tube Check 12/04/16 0000 Signed Impressions: Service Date/Time: Sunday, December 04, 2016 17:58 - CONCLUSION: Uncomplicated tube injection as above. the tube is in good position and functions normally. Moises Ramírez MD Abdomen X-Ray 08/31/16 0000 Signed Impressions: Service Date/Time: Wednesday, August 31, 2016 16:36 - CONCLUSION: 1. No acute findings. Mild constipation. Durga Dotson MD Abdomen/Pelvis CT 04/12/16 0000 Signed Impressions: Service Date/Time: Tuesday, April 12, 2016 20:52 - CONCLUSION: 1. 6.4 cm necrotic mass or abscess in the soft tissues posteriorly just below the sacrum associated with some bony destructive change of the lower most sacrum and coccyx with inflammatory changes extending into the ischiorectal fossa and into the presacral retroperitoneum predominantly on the left side. There is associated fairly marked mural thickening of the anal verge and rectum. 2. There is gastrostomy and Arevalo catheter present. Stable abdominal aortic aneurysm. Durga Dotson MD Head Magnetic Resonance Angiography 03/05/16 0000 Signed Impressions: Service Date/Time: Saturday, March 05, 2016 09:26 - CONCLUSION: Persistent high-grade subtotal occlusive stenotic lesions in the distal right vertebral artery and proximal basilar artery with significant improvement in flow and recanalization following initial presentation of thrombosis. Stable interstitial circulation without significant stenosis. 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 There is decreasing restricted diffusion and increasing loss of volume characteristic of a subacute to chronic infarct. No evidence of acute infarct, acute hemorrhage mass or edema. Ernesto Kulkarni MD Head CT 01/16/16 0000 Signed Impressions: Service Date/Time: Saturday, January 16, 2016 10:51 - CONCLUSION: No extensive low density in the brainstem colin more prominent in the right the left extending into the right middle cerebellar peduncle consistent with brainstem infarct nonhemorrhagic acute Wellington West MD Neck Magnetic Resonance Angiography 12/22/15 1445 Signed Impressions: Service Date/Time: Tuesday, December 22, 2015 09:22 - CONCLUSION: Variant origin of the left vertebral artery from the aortic arch. No evidence of carotid stenosis. Glen Zamora MD Head/Brain Mag Res Venography 12/22/15 0000 Signed Impressions: Service Date/Time: Tuesday, December 22, 2015 09:22 - CONCLUSION: Normal MRV. Jonel Jones Jr., MD Objective Remarks Sacral ulcer with appropriate wound care GENERAL: This is a well-nourished, well-developed patient, eyes closed CARDIOVASCULAR: Sinus regular rate without murmurs, gallops, or rubs. RESPIRATORY: Tracheostomy Clear to auscultation. Breath sounds equal bilaterally. No wheezes, rales, or rhonchi. GASTROINTESTINAL: PEG tube Abdomen soft, non-tender, nondistended. Normal active bowel sounds MUSCULOSKELETAL: Extremities without clubbing, cyanosis, or edema. NEURO: Encephalopathic, sleeping Procedures 01/02/16 PEG placement 01/02/16 tracheostomy 07/22/2016 Wide excision of sacral skin wound, biopsy of the cavity lining and debridement. 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 Tracks with his eyes. Continue Keppra for seizure prophylaxis. PT/OT signed off as patient is unable to participate. -Need placement. Difficult. Appreciate case management assistance. 12/02/16: Rehab Medicine (Dr. Pickens) saw pt on 12/04/16, rec's on chart. Chronic respiratory failure -Secondary to CVA. Status post tracheostomy. Continue pulmonary toilet and bronchodilators as needed. Continue trach care, suctioning. Levsin as needed. -Pulmonary currently following . Appreciate assistance. -Pt noted to have oxygenation (per bedside monitor) improvement noted after pt was repositioned and he received a breathing treatment. Oxygen saturation was noted to be 95% on follow-up visit. -12/06/16 pt noted to have Rhonchi for second day, chest x-ray ordered. No acute findings noted. pt without cough and fever. monitor. -12/07/16 Rhonchi not present upon exam. Discussed with Dr. Leal and he advised using Mucomyst should rhonchi recur. Dr. Taylor with pulmonology continues to follow Atrial fibrillation -Continue rate control with Cardizem and metoprolol. Echocardiogram in November 2015 shows preserved ejection fraction. Coumadin discontinued secondary to bleeding. Rate controlled. Continue aspirin and prophylactic heparin dose. History of non-Hodgkin's lymphoma - Status post brain biopsy on December 13 by neurosurgery. Pathology consistent with acute infarct without evidence of lymphoma. Oncology has signed all Diabetes mellitus, controlled A1c 7 -Hemoglobin A1c is 7. Continue Levemir. Monitor Accu-Cheks and cover with sliding scale insulin. Overall blood sugar continues well controlled. Decubitus ulcer stage IV -Continue wound care, twice-daily dressing changes. Wound care recommendations. Continue pressure relief measures including turning and positioning. Patient's family has declined a diverting colostomy. Previous Wound culture growing Klebsiella. on Augmentin. Status post wide excision of sacral skin and biopsy of the cavity lining with debridement on 07/22/16. Continue scheduled [place] every 8 hours. -Continue to monitor for pain. Gastric ulcer, reflux esophagitis - EGD on 07/30/16 showed gastric ulcers. Appreciate GI recommendations. Continue PPI. H&H stable as of last recheck.. UTI pseudomonas aeruginosa treated with abx -Resolved. - Repeat Ucx 08/28/16 negative. -Pt seen by ID (Dr. Alvarez) on 11/28/16. Constipation: -Having regular bowel movements. -on lactulose. Monitor. -Notes of 11/21/16 indicated pt had diarrhea, he was checked for C. Diff and was negative. Imodium to be used. FEN: Continue Nepro tube feeds with free water flushes. Appreciate dietary assistance. 12/02/16: Per SUSAN Huizar to be consulted to replace GJ tube. -pt to have his GJ tube replaced later today (12/03/16). Replacement procedure did not occur on 12/03/16 and is being delayed until later today (12/04/16). -GJ tube replaced on 12/04/16. Per IR physician's note, no obstruction found and tube was in the correct position and operating normally. 12/07/16 J tube is clogged, nursing has applied water as well as soda to the line to try and flush the line with no progress at this time. G tube is patent and will use for feeding and medication. May need to consider increased rate of delivery to prevent clogging as well as more frequent flushing should patency of J tube be regained. 12/09 Patient using Gtube - flushed by nurse, continue feedings per dietary recommendations. 12/28 tube feeding is leaking, consult IR for replacement DVT prophylaxis: SCDs/ subq heparin. Discussed with pt's mother and ex- (at bedside), RN (bedside). Discharge Planning Per CM: pt has no payor source for rehab, declined by multiple facilities. Difficult DC. CM following for DC plan Problem Qualifiers (1) CVA (cerebral vascular accident): (2) DM (diabetes mellitus): Qualified Code: E11.9 - Type 2 diabetes mellitus without complications Nahomy Tatum MD Dec 28, 2016 15:58
[2016-12-28] MEDS: SENNOSIDES SYRUP 8.8 MG/5 ML CUP PEG SCH (16:00)
[2016-12-28] MEDS: PARoxetine HCL SUSP 20 MG/10 ML UDC PEG SCH (18:05)
[2016-12-28] MEDS: SODIUM CHLOR 0.9% 1000 ML INJ 1,000 ML IV SCH (18:05)
[2016-12-29] VITALS (9 sets, daily range): BP systolic 104–125; BP diastolic 71–82; PULSE 82–100; RESP 18–22; TEMP 96.1–98.4; O2SAT 96–99
[2016-12-29] MEDS: DILTIAZEM HCL 30 MG TAB PEG SCH ×2 (00:59→12:41)
[2016-12-29] MEDS: FREE WATER TUBE SCH ×3 (05:37→16:20)
[2016-12-29] MEDS: ACETIC ACID 0.25% SOLN 1000 ML IRR BTL IRRIGATION SCH ×3 (05:37→21:09)
[2016-12-29] MEDS: HEPARIN SODIUM - SQ 10,000 UNITS/ML VIAL SQ SCH ×3 (05:37→20:55)
[2016-12-29] MEDS: INSULIN ASPART SUPPLEMENTAL SCALE SQ SCH (06:00)
[2016-12-29] MEDS: ARTIFICIAL TEARS OPTH SOLN 15 ML BTL EACH EYE SCH ×2 (08:40→20:52)
[2016-12-29] MEDS: SODIUM CHLORIDE 0.65% NASAL SPRAY 45 ML BTL NASAL SCH ×2 (08:40→20:52)
[2016-12-29] MEDS: LACTULOSE SYRUP 20 GM/30 ML CUP PEG SCH (08:40)
[2016-12-29] MEDS: ASPIRIN 325 MG TAB TUBE SCH (08:41)
[2016-12-29] MEDS: PANTOPRAZOLE SODIUM 40 MG VIAL IV PUSH SCH ×2 (08:56→21:09)
[2016-12-29] MEDS: levETIRAcetam 500 MG/5 ML UDC TUBE SCH ×2 (08:56→20:49)
[2016-12-29] MEDS: POTASSIUM CHLORIDE 25 MEQ EFFERVESCENT TAB TUBE SCH (08:56)
[2016-12-29] MEDS: BACITRACIN TOP OINT 15 GM TUBE TOP SCH ×2 (08:57→20:51)
[2016-12-29] MEDS: KETOCONAZOLE 2% CREAM 15 GM TOPICAL SCH ×2 (08:57→21:09)
[2016-12-29] MEDS: MAGNESIUM HYDROXIDE SUSP 30 ML CUP PEG SCH (08:57)
[2016-12-29] MEDS: NYSTATIN 100,000 U/GM PWD 15 GM BTL TOPICAL SCH ×2 (08:57→21:09)
[2016-12-29] MEDS: METOPROLOL TARTRATE 25 MG TAB PEG SCH ×2 (08:57→20:49)
--- NOTE | 2016-12-29 12:55 | HHI.PR ---
Subjective Remarks Patient is non-verbal. is present at bedside today. Only complaint has to do with a torn feeding tube. Pending replacement for feeding tube planned for tomorrow. Objective Vital Signs Date Time Temp Pulse Resp B/P Pulse Ox O2 Delivery O2 Flow Rate FiO2 12/29/16 09:27 96 T-piece 28 12/29/16 08:00 96.1 98 22 125/78 98 12/29/16 07:15 92 12/29/16 05:01 97.6 82 18 119/74 99 12/29/16 00:42 98.4 82 20 110/76 98 12/28/16 23:17 94 12/28/16 20:23 97.9 89 18 142/91 98 12/28/16 17:47 97 T-piece 6.00 28 12/28/16 17:45 97 T-piece 6.00 28 12/28/16 16:30 96.6 89 20 97 12/28/16 16:30 96.6 89 20 117/73 97 12/28/16 13:05 99.0 86 20 116/75 96 I/O 12/28/16 12/28/16 12/28/16 12/29/16 12/29/16 12/29/16 07:00 15:00 23:00 07:00 15:00 23:00 Intake Total 1062 ml 733 ml 971 ml Output Total 2200 ml 450 ml 1800 ml Balance -1138 ml -450 ml 733 ml -829 ml IV Total 467 ml 433 ml 241 ml Tube Feeding 295 ml 150 ml 430 ml Other 300 ml 150 ml 300 ml Output Urine Total 2200 ml 450 ml 1800 ml # Bowel Movements 1 2 1 Result Diagram: 12/25/16 0810 Procedures 01/02/16 PEG placement 01/02/16 tracheostomy 07/22/2016 Wide excision of sacral skin wound, biopsy of the cavity lining and debridement. PEG tube replacement 07/29/16 Objective Remarks GENERAL: NAD, AOx0 SKIN: Warm and dry. HEAD: Normocephalic. EYES: No scleral icterus. No injection or drainage. NECK: Supple, tracheostomy in place and patent CARDIOVASCULAR: Regular rate and rhythm without murmurs, gallops, or rubs. RESPIRATORY: Breath sounds equal bilaterally. No accessory muscle use. GASTROINTESTINAL: Abdomen soft, non-tender, nondistended. MUSCULOSKELETAL: No cyanosis, or edema. NEURO: Unresponsive. Global and Extreme cognitive deficits, no meaningful motor function. A/P Problem List: (1) Feeding tube dysfunction ICD Code: T85.598A (2) DM (diabetes mellitus) ICD Code: E11.9 (3) CVA (cerebral vascular accident) ICD Code: I63.9 (4) A-fib ICD Code: I48.91 Assessment and Plan Assessment and plan 61-year-old male status post severe CVA with paraplegia Global apraxia. 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 Keppra continued (for seizures) Supportive Care technician terminal and repeater care needed for chronic and profound neurologic deficits. Recovery is not expected to occur. 10/02 care will be needed, so home health and hospice are not good options for him Chronic respiratory failure This is secondary to CVA Tracheostomy in place Continue Levsin as needed Pulmonology following As needed oxygen FEN Damaged PEG tube Replacement pending for tomorrow. Continue tube feeds with functional port Atrial fibrillation Cardizem Metoprolol Aspirin Prophylactic heparin Follow heart rate History of non-Hodgkin's lymphoma Follow clinically Diabetes mellitus Follow blood sugars Patient is on tube feeds, use diabetic tube feeds Continue Levemir Sliding scale insulin Decubitus ulcer stage IV: Wound care Frequent turns Colostomy declined by family (inability to divert feces in this chronic setting increases risks with ulcer and for recurrence of ulcers) Monitor for pain When necessary [place] for pain Chronic Arevalo Follow for UTIs Hx of Gastric Ulcer Follow clinically PPI Monitor H/H intermittantly Constipation Continue lactulose DVT prophylaxis Prophylactic heparin Discharge planning Case management following No payor source available Accepting facility not yet available Problem Qualifiers (1) DM (diabetes mellitus): Qualified Code: E11.9 - Type 2 diabetes mellitus without complications (2) CVA (cerebral vascular accident): Moises Pruitt MD Dec 29, 2016 12:55
[2016-12-29] MEDS: SENNOSIDES SYRUP 8.8 MG/5 ML CUP PEG SCH (15:33)
[2016-12-29] MEDS: HYOSCYAMINE 0.125 MG TAB G-TUBE PRN (16:20)
[2016-12-29] MEDS: SODIUM CHLOR 0.9% 1000 ML INJ 1,000 ML IV SCH (18:34)
[2016-12-29] MEDS: PARoxetine HCL SUSP 20 MG/10 ML UDC PEG SCH (18:34)
[2016-12-30] VITALS (9 sets, daily range): BP systolic 107–139; BP diastolic 66–79; PULSE 73–99; RESP 16–21; TEMP 96.7–98.1; O2SAT 95–99
[2016-12-30] MEDS: DILTIAZEM HCL 30 MG TAB PEG SCH (00:51)
[2016-12-30] MEDS: FREE WATER TUBE SCH ×3 (00:51→23:57)
[2016-12-30] MEDS: ACETIC ACID 0.25% SOLN 1000 ML IRR BTL IRRIGATION SCH ×3 (05:09→21:24)
[2016-12-30] MEDS: HEPARIN SODIUM - SQ 10,000 UNITS/ML VIAL SQ SCH ×2 (05:10→21:02)
[2016-12-30] MEDS: INSULIN ASPART SUPPLEMENTAL SCALE SQ SCH (06:41)
[2016-12-30] MEDS: BACITRACIN TOP OINT 15 GM TUBE TOP SCH ×2 (09:00→21:00)
[2016-12-30] MEDS: NYSTATIN 100,000 U/GM PWD 15 GM BTL TOPICAL SCH ×2 (09:00→21:00)
[2016-12-30] MEDS: ARTIFICIAL TEARS OPTH SOLN 15 ML BTL EACH EYE SCH ×2 (09:00→21:00)
[2016-12-30] MEDS: KETOCONAZOLE 2% CREAM 15 GM TOPICAL SCH ×2 (09:00→21:00)
[2016-12-30] MEDS: MAGNESIUM HYDROXIDE SUSP 30 ML CUP PEG SCH (09:00)
[2016-12-30] MEDS: LACTULOSE SYRUP 20 GM/30 ML CUP PEG SCH (09:00)
[2016-12-30] MEDS: SODIUM CHLORIDE 0.65% NASAL SPRAY 45 ML BTL NASAL SCH ×2 (09:00→21:00)
--- NOTE | 2016-12-30 09:13 | HHI.PR ---
Subjective Remarks Follow up. Patient is laying in bed, eyes open, non verbal. is at bedside, complains of secretions in tracheostomy tube. Patient will be going today for replacement of peg tube. Objective Vitals Vital Signs Date Time Temp Pulse Resp B/P Pulse Ox O2 Delivery O2 Flow Rate FiO2 12/30/16 08:00 98.0 94 16 139/79 96 12/30/16 05:10 98.1 91 18 107/69 99 12/30/16 00:58 97.1 73 20 109/66 97 12/29/16 20:20 97.9 100 18 124/82 96 12/29/16 19:30 98 12/29/16 16:00 97.9 89 20 104/78 98 12/29/16 12:00 97.9 85 22 114/71 96 12/29/16 09:27 96 T-piece 28 I/O 12/29/16 12/29/16 12/29/16 12/30/16 12/30/16 12/30/16 07:00 15:00 23:00 07:00 15:00 23:00 Intake Total 971 ml 862 ml 1883 ml Output Total 1800 ml 600 ml 1600 ml 600 ml Balance -829 ml 262 ml -1600 ml 1283 ml IV Total 241 ml 695 ml Tube Feeding 430 ml 862 ml 738 ml Other 300 ml 450 ml Output Urine Total 1800 ml 600 ml 1600 ml 600 ml # Bowel Movements 1 3 7 1 Imaging Last Impressions Tube Change 12/20/16 0000 Signed Impressions: Service Date/Time: Tuesday, December 20, 2016 14:13 - CONCLUSION: Uncomplicated gastrojejunostomy tube exchange as above. Scott Griffin MD Chest X-Ray 12/06/16 0000 Signed Impressions: Service Date/Time: Tuesday, December 06, 2016 11:07 - CONCLUSION: 1. Hypoinflation with minimal bibasilar atelectatic changes. 2. No confluent infiltrate or effusion. Bobby Gray MD Tube Check 12/04/16 0000 Signed Impressions: Service Date/Time: Sunday, December 04, 2016 17:58 - CONCLUSION: Uncomplicated tube injection as above. the tube is in good position and functions normally. Moises Ramírez MD Abdomen X-Ray 08/31/16 0000 Signed Impressions: Service Date/Time: Wednesday, August 31, 2016 16:36 - CONCLUSION: 1. No acute findings. Mild constipation. Durga Dotson MD Abdomen/Pelvis CT 04/12/16 0000 Signed Impressions: Service Date/Time: Tuesday, April 12, 2016 20:52 - CONCLUSION: 1. 6.4 cm necrotic mass or abscess in the soft tissues posteriorly just below the sacrum associated with some bony destructive change of the lower most sacrum and coccyx with inflammatory changes extending into the ischiorectal fossa and into the presacral retroperitoneum predominantly on the left side. There is associated fairly marked mural thickening of the anal verge and rectum. 2. There is gastrostomy and Lopez catheter present. Stable abdominal aortic aneurysm. Durga Dotson MD Head Magnetic Resonance Angiography 03/05/16 0000 Signed Impressions: Service Date/Time: Saturday, March 05, 2016 09:26 - CONCLUSION: Persistent high-grade subtotal occlusive stenotic lesions in the distal right vertebral artery and proximal basilar artery with significant improvement in flow and recanalization following initial presentation of thrombosis. Stable interstitial circulation without significant stenosis. 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 There is decreasing restricted diffusion and increasing loss of volume characteristic of a subacute to chronic infarct. No evidence of acute infarct, acute hemorrhage mass or edema. Ernesto Kulkarni MD Head CT 01/16/16 0000 Signed Impressions: Service Date/Time: Saturday, January 16, 2016 10:51 - CONCLUSION: No extensive low density in the brainstem colin more prominent in the right the left extending into the right middle cerebellar peduncle consistent with brainstem infarct nonhemorrhagic acute Wellington West MD Neck Magnetic Resonance Angiography 12/22/15 1445 Signed Impressions: Service Date/Time: Tuesday, December 22, 2015 09:22 - CONCLUSION: Variant origin of the left vertebral artery from the aortic arch. No evidence of carotid stenosis. Glen Zamora MD Head/Brain Mag Res Venography 12/22/15 0000 Signed Impressions: Service Date/Time: Tuesday, December 22, 2015 09:22 - CONCLUSION: Normal MRV. Jonel Jones Jr., MD Objective Remarks GENERAL: Elderly patient, in no acute distress. SKIN: Warm and dry. No rashes. Sacral wound covered with a Mepilex. HEAD: Normocephalic. Atraumatic. EYES: No scleral icterus. No injection or drainage. NECK: Supple, trachea midline. No JVD. Tracheostomy in place on 28% t piece CARDIOVASCULAR: Regular rate and rhythm without murmurs, gallops, or rubs. RESPIRATORY: Rhonchi Breath sounds throughout, increased oral secretions. GASTROINTESTINAL: Abdomen soft, non-tender, nondistended. Normoactive bowel sounds 4. PEG in place with nephro TF at goal. MUSCULOSKELETAL: Extremities without clubbing, cyanosis, or edema. NEUROLOGICAL: Does not spontaneously move extremities, Nonverbal. Procedures 01/02/16 PEG placement 01/02/16 tracheostomy 07/22/2016 Wide excision of sacral skin wound, biopsy of the cavity lining and debridement. PEG tube replacement 07/29/16 VAC changes- M-W-F 4/5- GJ tube replacement Medications and IVs Current Medications Medications (Trade) Dose Ordered Sig/Junior Route Start Time Stop Time Status Last Admin (NS Flush) 2 ml UNSCH PRN IVF 12/21/15 06:00 09/28/16 21:18 (Keppra Liq) 500 mg Q12HR TUBE 12/27/15 21:00 12/29/16 20:49 (Tylenol 650 Mg/ 20 ml Liq) 650 mg Q6H PRN TUBE 12/30/15 15:15 11/14/16 21:18 (Mycostatin Powder) 1 applic Q12HR TOPICAL 01/08/16 21:00 12/29/16 21:09 (Pill Splitter) 1 ea UNSCH PRN OTHER 01/14/16 08:30 (Acetic Acid 0.25% Irr Btl) 10 ml Q8HR IRRIGATION 02/05/16 16:00 12/30/16 05:09 (Ativan Inj) 0.5 mg Q4H PRN IV PUSH 03/07/16 23:00 (Paxil Liq) 20 mg DAILY@1900 PEG 03/12/16 19:00 12/29/16 18:34 (Levemir Inj) 35 units HS SQ 03/24/16 21:00 Hold 11/15/16 22:06 (Levsin) 0.25 mg Q4H PRN G-TUBE 04/11/16 10:30 12/29/16 16:20 (Zofran Inj) 4 mg Q6HR PRN IV PUSH 04/14/16 19:45 08/10/16 10:16 (D50w (Vial) Inj) 25 ml UNSCH PRN IV 04/20/16 12:00 (Glucagon Inj) 1 mg UNSCH PRN IM/SQ 04/20/16 12:00 (K-Lyte Cl Eff) 25 meq DAILY TUBE 05/28/16 09:00 12/29/16 08:56 (Aspirin) 325 mg DAILY TUBE 05/27/16 11:40 12/29/16 08:41 (Heparin Inj) 5,000 units Q8HR SQ 06/11/16 14:00 12/30/16 05:10 (Baciguent Oint) 1 applic BID TOP 07/20/16 10:00 12/29/16 20:51 (Protonix Inj) 40 mg Q12H IV PUSH 07/30/16 10:15 12/29/16 21:09 ([place]) 1 spray BID NASAL 08/01/16 21:00 12/29/16 20:52 (Tears Naturale Opth Soln) 1 drop BID EACH EYE 09/05/16 21:00 12/29/16 20:52 (Morphine Inj) 1 mg Q24H PRN IV PUSH 09/17/16 14:30 10/22/16 02:00 (Nizoral 2% Cream) 1 applic Q12HR TOPICAL 09/24/16 21:00 12/29/16 08:57 (Fleets Enema (Adult)) 133 ml UNSCH PRN MA 09/25/16 16:00 (Dulcolax Supp) 10 mg DAILY PRN RECTAL 09/26/16 15:30 12/08/16 09:17 Diltiazem HCl 30 mg 30 mg Q12H PEG 11/20/16 01:00 12/28/16 13:17 (NS 1000 ml Inj) 1,000 ml @ 30 mls/hr Q24H IV 11/28/16 19:45 12/29/16 18:34 (Free Water) 150 ml Q6HR TUBE 12/24/16 12:00 12/30/16 05:09 (Tylenol - Codeine 120-12 Liq) 5 ml Q4H PRN G-TUBE 12/27/16 15:30 (Flexeril) 5 mg HS PRN PEG 12/27/16 15:30 (Lactulose Liq) 30 ml DAILY PEG 12/28/16 09:00 12/29/16 08:40 (Imodium Liq) 2 mg Q6H PRN PEG 12/27/16 15:30 (Milk Of Magnesia Liq) 30 ml DAILY PRN PEG 12/27/16 15:30 (Milk Of Magnesia Liq) 30 ml DAILY PEG 12/28/16 09:00 12/29/16 08:57 (Lopressor) 25 mg BID PEG 12/27/16 21:00 12/29/16 20:49 (Senna Liq) 8.8 mg DAILY@1600 PEG 12/27/16 16:00 12/27/16 18:04 (Lactulose Liq) 30 ml DAILY PRN PEG 12/27/16 15:30 Date of Insertion: Oct 12, 2016 A/P Problem List: (1) CVA (cerebral vascular accident) ICD Code: I63.9 Status: Acute (2) A-fib ICD Code: I48.91 Status: Chronic (3) DM (diabetes mellitus) ICD Code: E11.9 Status: Chronic Assessment and Plan 60 y/o male presented with: CVA (cerebral vascular accident): 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 Nonverbal, paraplegia, global apraxia -Continue Keppra, Palliative care following. Monitor Keppra level periodically. -Seizure precautions -Supportive care, bed bug exterminator needed for chronic and profound neurologic deficits. Recovery is not expected to occur. -24/7 care will be needed, so home health and hospice are not good options for him Chronic Respiratory failure, secondary to CVA -Tracheostomy in place -Continue Levsin as needed for secretions -Pulmonology following -As needed oxygen -Xopenex nebs as needed GI/Nutrition. -Cont tube feedings -PEG to be replaced today Depression: Continue Paxil. A-fib, chronic -continue Lopressor, cardizem, ASA -Monitor tele Coccyx pressure ulcer, colostomy declined by family (inability to divert feces in this chronic setting increases risks with ulcer and for recurrence of ulcers) -repositioning Q2H -Cont. wound care recommendations -Pain management with PO [place] Diabetes mellitus -Accu checks with SSI -Patient is on tube feeds, use diabetic tube feeds -Continue Levemir Chronic lopez -monitor for UTI symptoms DVT prophylaxis: Heparin Discharge Planning Pending placement. Will need long-term SNF placement, that will accept tracheostomy. As on 12/27/16 no accepting facility as of yet. Problem Qualifiers (1) CVA (cerebral vascular accident): (2) DM (diabetes mellitus): Qualified Code: E11.9 - Type 2 diabetes mellitus without complications Kamala Farias Dec 30, 2016 09:12 Kamala Farias Dec 30, 2016 09:12
[2016-12-30] MEDS: METOPROLOL TARTRATE 25 MG TAB PEG SCH ×2 (09:35→21:01)
[2016-12-30] MEDS: levETIRAcetam 500 MG/5 ML UDC TUBE SCH ×2 (09:35→21:01)
[2016-12-30] MEDS: POTASSIUM CHLORIDE 25 MEQ EFFERVESCENT TAB TUBE SCH (09:35)
[2016-12-30] MEDS: ASPIRIN 325 MG TAB TUBE SCH (09:40)
[2016-12-30] MEDS: PANTOPRAZOLE SODIUM 40 MG VIAL IV PUSH SCH ×2 (09:42→21:02)
[2016-12-30] MEDS: SENNOSIDES SYRUP 8.8 MG/5 ML CUP PEG SCH (16:00)
[2016-12-30] MEDS: PARoxetine HCL SUSP 20 MG/10 ML UDC PEG SCH (19:00)
[2016-12-31] VITALS (10 sets, daily range): BP systolic 107–135; BP diastolic 69–95; PULSE 74–95; RESP 18–22; TEMP 95.9–97.7; O2SAT 96–98
[2016-12-31] MEDS: DILTIAZEM HCL 30 MG TAB PEG SCH ×2 (02:04→13:00)
[2016-12-31] MEDS: HEPARIN SODIUM - SQ 10,000 UNITS/ML VIAL SQ SCH ×3 (05:21→21:19)
[2016-12-31] MEDS: ACETIC ACID 0.25% SOLN 1000 ML IRR BTL IRRIGATION SCH ×3 (05:22→22:00)
[2016-12-31] MEDS: FREE WATER TUBE SCH ×3 (05:22→18:00)
[2016-12-31] MEDS: INSULIN ASPART SUPPLEMENTAL SCALE SQ SCH (06:08)
[2016-12-31] MEDS: ARTIFICIAL TEARS OPTH SOLN 15 ML BTL EACH EYE SCH ×2 (09:00→21:23)
[2016-12-31] MEDS: NYSTATIN 100,000 U/GM PWD 15 GM BTL TOPICAL SCH ×2 (09:00→21:00)
[2016-12-31] MEDS: POTASSIUM CHLORIDE 25 MEQ EFFERVESCENT TAB TUBE SCH (09:00)
[2016-12-31] MEDS: BACITRACIN TOP OINT 15 GM TUBE TOP SCH ×2 (09:00→21:00)
[2016-12-31] MEDS: LACTULOSE SYRUP 20 GM/30 ML CUP PEG SCH (09:00)
[2016-12-31] MEDS: levETIRAcetam 500 MG/5 ML UDC TUBE SCH ×2 (09:00→21:22)
[2016-12-31] MEDS: METOPROLOL TARTRATE 25 MG TAB PEG SCH ×2 (09:00→21:22)
[2016-12-31] MEDS: KETOCONAZOLE 2% CREAM 15 GM TOPICAL SCH ×2 (09:00→21:00)
[2016-12-31] MEDS: SODIUM CHLORIDE 0.65% NASAL SPRAY 45 ML BTL NASAL SCH ×2 (09:00→21:00)
[2016-12-31] MEDS: MAGNESIUM HYDROXIDE SUSP 30 ML CUP PEG SCH (09:00)
[2016-12-31] MEDS: ASPIRIN 325 MG TAB TUBE SCH (09:00)
[2016-12-31] MEDS: PANTOPRAZOLE SODIUM 40 MG VIAL IV PUSH SCH ×2 (10:15→21:17)
--- NOTE | 2016-12-31 11:03 | HHI.PR ---
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 Patient continues to be nonverbal, and is not involved in his care. Patient seen and examined today. Patient lying in bed in no apparent distress. Pt underwent suctioning by respiratory therapy. Mother at the bedside, ex- entering room at end of visit both reporting new feeding tube needed. Pt's RN (Art) reported pt to undergo replacement of G-J tube later in the day; procedure scheduled for 12/30/16 was postponed due to other cases. RN reported pt's coccyx wound was improving. Pt's RN denied acute changes over night as well as new issues or concerns. Objective Vitals Vital Signs Date Time Temp Pulse Resp B/P Pulse Ox O2 Delivery O2 Flow Rate FiO2 12/31/16 08:00 96.6 95 18 135/95 98 12/31/16 06:45 97.7 88 22 107/73 97 12/31/16 00:35 97 T-piece 28 12/31/16 00:35 97 T-piece 28 12/31/16 00:00 96.2 87 21 114/78 96 12/30/16 23:40 95 Trach Collar 6.00 12/30/16 20:11 98 T-piece 28 12/30/16 20:00 99 12/30/16 20:00 96.7 95 21 119/75 96 12/30/16 16:00 96.8 98 19 117/72 95 12/30/16 12:00 97.2 93 17 110/67 97 I/O 12/30/16 12/30/16 12/30/16 12/31/16 12/31/16 12/31/16 07:00 15:00 23:00 07:00 15:00 23:00 Intake Total 1883 ml 600 ml Output Total 600 ml 1200 ml 1300 ml 750 ml Balance 1283 ml -1200 ml -700 ml -750 ml IV Total 695 ml 300 ml Tube Feeding 738 ml Other 450 ml 300 ml Output Urine Total 600 ml 1200 ml 1300 ml 750 ml # Bowel Movements 1 1 1 0 Other Results Imaging Last Impressions Tube Change 12/20/16 0000 Signed Impressions: Service Date/Time: Tuesday, December 20, 2016 14:13 - CONCLUSION: Uncomplicated gastrojejunostomy tube exchange as above. Scott Griffin MD Chest X-Ray 12/06/16 0000 Signed Impressions: Service Date/Time: Tuesday, December 06, 2016 11:07 - CONCLUSION: 1. Hypoinflation with minimal bibasilar atelectatic changes. 2. No confluent infiltrate or effusion. Bobby Gray MD Tube Check 12/04/16 0000 Signed Impressions: Service Date/Time: Sunday, December 04, 2016 17:58 - CONCLUSION: Uncomplicated tube injection as above. the tube is in good position and functions normally. Moises Ramírez MD Abdomen X-Ray 08/31/16 0000 Signed Impressions: Service Date/Time: Wednesday, August 31, 2016 16:36 - CONCLUSION: 1. No acute findings. Mild constipation. Durga Dotson MD Abdomen/Pelvis CT 04/12/16 0000 Signed Impressions: Service Date/Time: Tuesday, April 12, 2016 20:52 - CONCLUSION: 1. 6.4 cm necrotic mass or abscess in the soft tissues posteriorly just below the sacrum associated with some bony destructive change of the lower most sacrum and coccyx with inflammatory changes extending into the ischiorectal fossa and into the presacral retroperitoneum predominantly on the left side. There is associated fairly marked mural thickening of the anal verge and rectum. 2. There is gastrostomy and Arevalo catheter present. Stable abdominal aortic aneurysm. Durga Dotson MD Head Magnetic Resonance Angiography 03/05/16 0000 Signed Impressions: Service Date/Time: Saturday, March 05, 2016 09:26 - CONCLUSION: Persistent high-grade subtotal occlusive stenotic lesions in the distal right vertebral artery and proximal basilar artery with significant improvement in flow and recanalization following initial presentation of thrombosis. Stable interstitial circulation without significant stenosis. 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 There is decreasing restricted diffusion and increasing loss of volume characteristic of a subacute to chronic infarct. No evidence of acute infarct, acute hemorrhage mass or edema. Ernesto Kulkarni MD Head CT 01/16/16 0000 Signed Impressions: Service Date/Time: Saturday, January 16, 2016 10:51 - CONCLUSION: No extensive low density in the brainstem colin more prominent in the right the left extending into the right middle cerebellar peduncle consistent with brainstem infarct nonhemorrhagic acute Wellington West MD Neck Magnetic Resonance Angiography 12/22/15 1445 Signed Impressions: Service Date/Time: Tuesday, December 22, 2015 09:22 - CONCLUSION: Variant origin of the left vertebral artery from the aortic arch. No evidence of carotid stenosis. Glen Zamora MD Head/Brain Mag Res Venography 12/22/15 0000 Signed Impressions: Service Date/Time: Tuesday, December 22, 2015 09:22 - CONCLUSION: Normal MRV. Jonel Jones Jr., MD Objective Remarks GENERAL: Pt encountered laying a bed, non-verbal, tracking people in room. Not in acute distress. Followed commands to visually track clinician's finger. SKIN: Warm and dry. tattoo noted on right forearm. HEAD: Normocephalic. EYES: Non-icteric without injection or drainage. Pt noted to have eyes open for much of clinical visit. NECK: Supple, trachea midline. T-tube in place. CARDIOVASCULAR: Regular rate and rhythm without murmurs, gallops, or rubs. RESPIRATORY: Breath sounds equal bilaterally;. No accessory muscle use. Trach tube in place. Bedside monitor indicated oxygen saturation was 96%. gagging noted when Respiratory therapy suctioned T-tube GASTROINTESTINAL: Abdomen soft, non-tender, nondistended. GJ tube noted, area around insertion was dry and seemingly without leakage. MUSCULOSKELETAL: No cyanosis, or edema. Bilateral lower leg SCD's present. PSYCHIATRIC: Pt non-verbal, he appeared calm and not in distress. Procedures 01/02/16 PEG placement 01/02/16 tracheostomy 07/22/2016 Wide excision of sacral skin wound, biopsy of the cavity lining and debridement. PEG tube replacement 07/29/16 VAC changes- M-W-F 4/5- GJ tube replacement Medications and IVs Current Medications Medications (Trade) Dose Ordered Sig/Junior Route Start Time Stop Time Status Last Admin (NS Flush) 2 ml UNSCH PRN IVF 12/21/15 06:00 09/28/16 21:18 (Keppra Liq) 500 mg Q12HR TUBE 12/27/15 21:00 12/30/16 21:01 (Tylenol 650 Mg/ 20 ml Liq) 650 mg Q6H PRN TUBE 12/30/15 15:15 4/27/17 21:18 (Mycostatin Powder) 1 applic Q12HR TOPICAL 01/08/16 21:00 12/30/16 09:00 (Pill Splitter) 1 ea UNSCH PRN OTHER 01/14/16 08:30 (Acetic Acid 0.25% Irr Btl) 10 ml Q8HR IRRIGATION 02/05/16 16:00 12/31/16 05:22 (Ativan Inj) 0.5 mg Q4H PRN IV PUSH 03/07/16 23:00 (Paxil Liq) 20 mg DAILY@1900 PEG 03/12/16 19:00 12/29/16 18:34 (Levemir Inj) 35 units HS SQ 03/24/16 21:00 Hold 11/15/16 22:06 (Levsin) 0.25 mg Q4H PRN G-TUBE 04/11/16 10:30 12/29/16 16:20 (Zofran Inj) 4 mg Q6HR PRN IV PUSH 04/14/16 19:45 08/10/16 10:16 (D50w (Vial) Inj) 25 ml UNSCH PRN IV 04/20/16 12:00 (Glucagon Inj) 1 mg UNSCH PRN IM/SQ 04/20/16 12:00 (K-Lyte Cl Eff) 25 meq DAILY TUBE 05/28/16 09:00 12/30/16 09:35 (Aspirin) 325 mg DAILY TUBE 05/27/16 11:40 12/30/16 09:40 (Heparin Inj) 5,000 units Q8HR SQ 06/11/16 14:00 12/31/16 05:21 (Baciguent Oint) 1 applic BID TOP 07/20/16 10:00 12/30/16 21:00 (Protonix Inj) 40 mg Q12H IV PUSH 07/30/16 10:15 12/30/16 21:02 (Maxwell Angel [place]) 1 spray BID NASAL 08/01/16 21:00 12/30/16 21:00 (Tears Naturale Opth Soln) 1 drop BID EACH EYE 09/05/16 21:00 12/30/16 21:00 (Morphine Inj) 1 mg Q24H PRN IV PUSH 09/17/16 14:30 10/22/16 02:00 (Nizoral 2% Cream) 1 applic Q12HR TOPICAL 09/24/16 21:00 12/30/16 21:00 (Fleets Enema (Adult)) 133 ml UNSCH PRN OH 09/25/16 16:00 (Dulcolax Supp) 10 mg DAILY PRN RECTAL 09/26/16 15:30 12/08/16 09:17 Diltiazem HCl 30 mg 30 mg Q12H PEG 11/20/16 01:00 12/31/16 02:04 (NS 1000 ml Inj) 1,000 ml @ 30 mls/hr Q24H IV 11/28/16 19:45 12/29/16 18:34 (Free Water) 150 ml Q6HR TUBE 12/24/16 12:00 12/31/16 05:22 (Tylenol - Codeine 120-12 Liq) 5 ml Q4H PRN G-TUBE 12/27/16 15:30 (Flexeril) 5 mg HS PRN PEG 12/27/16 15:30 (Lactulose Liq) 30 ml DAILY PEG 12/28/16 09:00 12/29/16 08:40 (Imodium Liq) 2 mg Q6H PRN PEG 12/27/16 15:30 (Milk Of Magnesia Liq) 30 ml DAILY PRN PEG 12/27/16 15:30 (Milk Of Magnesia Liq) 30 ml DAILY PEG 12/28/16 09:00 12/29/16 08:57 (Lopressor) 25 mg BID PEG 12/27/16 21:00 12/30/16 21:01 (Senna Liq) 8.8 mg DAILY@1600 PEG 12/27/16 16:00 12/27/16 18:04 (Lactulose Liq) 30 ml DAILY PRN PEG 12/27/16 15:30 Urinary Catheter: Yes Date of Insertion: Oct 12, 2016 Vascular Central Line Catheter: No A/P Problem List: (1) CVA (cerebral vascular accident) ICD Code: I63.9 Status: Acute (2) A-fib ICD Code: I48.91 Status: Chronic (3) DM (diabetes mellitus) ICD Code: E11.9 Status: Chronic Assessment and Plan 61 year-old male presented with: CVA (cerebral vascular accident): 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 Nonverbal, paraplegia, global apraxia -Continue Keppra, Palliative care following. Monitor Keppra level periodically. 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 Recovery is not expected to occur. -24/7 care will be needed, so home health and hospice are not good options for him Chronic Respiratory failure, secondary to CVA -Tracheostomy in place -Continue Levsin as needed for secretions -Pulmonology following -As needed oxygen -Xopenex nebs as needed GI/Nutrition. -Cont tube feedings -PEG to be replaced today (12/31/16) Depression: Continue Paxil. A-fib, chronic -continue Lopressor, Cardizem, ASA -Monitor tele Coccyx pressure ulcer, colostomy declined by family (inability to divert feces in this chronic setting increases risks with ulcer and for recurrence of ulcers) -repositioning Q2H -Cont. wound care recommendations -Pain management with PO [place] Diabetes mellitus -Accu checks with SSI -Patient is on tube feeds, use diabetic tube feeds -Continue Levemir Chronic Arevalo -monitor for UTI symptoms DVT prophylaxis: Heparin Discussed with pt's mother (at bedside), ex-angela RN Art (at bedside), RHIANAN Farias and Dr. Pruitt. Discharge Planning Pending placement. Will need long-term SNF placement, that will accept tracheostomy. As on 12/27/16 no accepting facility as of yet. Problem Qualifiers (1) CVA (cerebral vascular accident): (2) DM (diabetes mellitus): Qualified Code: E11.9 - Type 2 diabetes mellitus without complications Javier Harris Jr. Dec 31, 2016 11:03
[2016-12-31] MEDS: SENNOSIDES SYRUP 8.8 MG/5 ML CUP PEG SCH (16:30)
--- NOTE | 2016-12-31 17:07 | PD.RAD ---
Post Procedure Progress Note Pre Procedure Diagnosis: (1) Feeding tube dysfunction Post Procedure Diagnosis: (1) Feeding tube dysfunction Procedure Date: Dec 31, 2016 Supervising Radiologist: Moises Ramírez Plan of Activity Patient to Unit: Nursing Unit Patient Condition: Poor Additional Comments: G/J tube changed without difficulty New catheter in good position OK for use See PACS Report for procedural detail/treatment Moises Ramírez MD Dec 31, 2016 17:07
[2016-12-31] MEDS: SODIUM CHLOR 0.9% 1000 ML INJ 1,000 ML IV SCH (19:45)
--- NOTE | 2016-12-31 20:41 | HHI.PR ---
Subjective Remarks opens eyes on o2 , o2 SAT 97% ON T PIECE NO DITRESS TRACH. OK new PEG TUBE PLACED Objective Vital Signs Date Time Temp Pulse Resp B/P Pulse Ox O2 Delivery O2 Flow Rate FiO2 12/31/16 16:00 96.3 82 18 108/76 97 12/31/16 12:00 95.9 74 18 110/69 98 12/31/16 09:12 96 T-piece 5.00 28 12/31/16 09:12 96 T-piece 5.00 28 12/31/16 08:00 96.6 95 18 135/95 98 12/31/16 07:30 95 Trach Collar 6.00 28 12/31/16 07:30 82 12/31/16 06:45 97.7 88 22 107/73 97 12/31/16 00:35 97 T-piece 28 12/31/16 00:35 97 T-piece 28 12/31/16 00:00 96.2 87 21 114/78 96 12/30/16 23:40 95 Trach Collar 6.00 I/O 12/30/16 12/30/16 12/30/16 12/31/16 12/31/16 12/31/16 07:00 15:00 23:00 07:00 15:00 23:00 Intake Total 1883 ml 600 ml 690 ml Output Total 600 ml 1200 ml 1300 ml 750 ml 650 ml Balance 1283 ml -1200 ml -700 ml -750 ml -650 ml 690 ml IV Total 695 ml 300 ml 300 ml Tube Feeding 738 ml 240 ml Other 450 ml 300 ml 150 ml Output Urine Total 600 ml 1200 ml 1300 ml 750 ml 650 ml # Bowel Movements 1 1 1 0 1 Procedures 01/02/16 PEG placement 01/02/16 tracheostomy 07/22/2016 Wide excision of sacral skin wound, biopsy of the cavity lining and debridement. PEG tube replacement 07/29/16 Objective Remarks GENERAL: SKIN: Warm and dry. HEAD: Atraumatic. Normocephalic. EYES: Pupils equal and round. No scleral icterus. No injection or drainage. ENT: No nasal bleeding or discharge. Mucous membranes pink and moist. NECK: Trachea midline. No JVD. TRACH. [place] CARDIOVASCULAR: Regular rate and rhythm. RESPIRATORY: No accessory muscle use. Clear to auscultation. Breath sounds equal bilaterally. GASTROINTESTINAL: Abdomen soft, non-tender, nondistended. Hepatic and splenic margins not palpable. MUSCULOSKELETAL: Extremities without clubbing, cyanosis, or edema. No obvious deformities. NEUROLOGICAL: Awake and alert. No obvious cranial nerve deficits. Motor grossly within normal limits. Five out of 5 muscle strength in the arms and legs. Normal speech. PSYCHIATRIC: Appropriate mood and affect; insight and judgment normal. Assessment and Plan Assessment and Plan impression respiratory failure CVA S/P TRACHEOSTOMY PLAN O2 NEEDED PULM. TOILET Brandon Taylor MD Dec 31, 2016 20:40
[2017-01-01] VITALS (8 sets, daily range): BP systolic 98–179; BP diastolic 64–115; PULSE 70–112; RESP 15–20; TEMP 96.2–100.1; O2SAT 90–100
[2017-01-01] MEDS: DILTIAZEM HCL 30 MG TAB PEG SCH ×2 (01:10→13:18)
[2017-01-01] MEDS: HEPARIN SODIUM - SQ 10,000 UNITS/ML VIAL SQ SCH ×3 (05:06→21:05)
[2017-01-01] MEDS: FREE WATER TUBE SCH ×4 (05:06→18:37)
[2017-01-01] MEDS: ACETIC ACID 0.25% SOLN 1000 ML IRR BTL IRRIGATION SCH ×3 (06:33→21:07)
[2017-01-01] MEDS: INSULIN ASPART SUPPLEMENTAL SCALE SQ SCH (06:34)
[2017-01-01] MEDS: levETIRAcetam 500 MG/5 ML UDC TUBE SCH ×2 (07:55→21:07)
[2017-01-01] MEDS: METOPROLOL TARTRATE 25 MG TAB PEG SCH ×2 (07:55→21:06)
[2017-01-01] MEDS: MAGNESIUM HYDROXIDE SUSP 30 ML CUP PEG SCH (07:55)
[2017-01-01] MEDS: POTASSIUM CHLORIDE 25 MEQ EFFERVESCENT TAB TUBE SCH (07:55)
[2017-01-01] MEDS: LACTULOSE SYRUP 20 GM/30 ML CUP PEG SCH (07:56)
[2017-01-01] MEDS: ASPIRIN 325 MG TAB TUBE SCH (07:56)
[2017-01-01] MEDS: KETOCONAZOLE 2% CREAM 15 GM TOPICAL SCH ×2 (08:08→21:00)
[2017-01-01] MEDS: SODIUM CHLORIDE 0.65% NASAL SPRAY 45 ML BTL NASAL SCH ×2 (08:08→21:00)
[2017-01-01] MEDS: ARTIFICIAL TEARS OPTH SOLN 15 ML BTL EACH EYE SCH ×2 (08:08→21:00)
[2017-01-01] MEDS: SODIUM CHLOR 0.9% 1000 ML INJ 1,000 ML IV SCH ×2 (10:21→19:45)
[2017-01-01] MEDS: PANTOPRAZOLE SODIUM 40 MG VIAL IV PUSH SCH ×2 (10:21→21:07)
--- NOTE | 2017-01-01 12:05 | HHI.PR ---
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 Patient continues to be nonverbal, and is not involved in his care. Patient seen and examined today. Patient lying in bed in no apparent distress. Pt underwent GJ tube replacement yesterday without incident. Mother at bed side questioned infusion of water at rate. Pt's RN (Dinh) denied acute changes over night as well as new issues or concerns. Objective Vitals Vital Signs Date Time Temp Pulse Resp B/P Pulse Ox O2 Delivery O2 Flow Rate FiO2 01/01/17 10:12 88 01/01/17 09:27 97 T-piece 5.00 01/01/17 08:00 96.7 70 15 135/76 94 01/01/17 08:00 96.2 100 16 111/72 90 01/01/17 05:12 97.6 92 19 115/64 96 01/01/17 00:12 97.6 74 19 112/68 99 12/31/16 21:20 97.2 84 19 124/78 98 12/31/16 21:00 85 12/31/16 16:00 96.3 82 18 108/76 97 12/31/16 12:00 95.9 74 18 110/69 98 I/O 12/31/16 12/31/16 12/31/16 01/01/17 01/01/17 01/01/17 07:00 15:00 23:00 07:00 15:00 23:00 Intake Total 690 ml 1235 ml Output Total 750 ml 650 ml 1050 ml Balance -750 ml -650 ml 690 ml 185 ml IV Total 300 ml Tube Feeding 240 ml 645 ml Tube Irrigant 290 ml Other 150 ml 300 ml Output Urine Total 750 ml 650 ml 1050 ml # Bowel Movements 0 1 2 Imaging Last Impressions Tube Change 12/20/16 0000 Signed Impressions: Service Date/Time: Tuesday, December 20, 2016 14:13 - CONCLUSION: Uncomplicated gastrojejunostomy tube exchange as above. Scott Griffin MD Chest X-Ray 12/06/16 0000 Signed Impressions: Service Date/Time: Tuesday, December 06, 2016 11:07 - CONCLUSION: 1. Hypoinflation with minimal bibasilar atelectatic changes. 2. No confluent infiltrate or effusion. Bobby Gray MD Tube Check 12/04/16 0000 Signed Impressions: Service Date/Time: Sunday, December 04, 2016 17:58 - CONCLUSION: Uncomplicated tube injection as above. the tube is in good position and functions normally. Moises Ramírez MD Abdomen X-Ray 08/31/16 0000 Signed Impressions: Service Date/Time: Wednesday, August 31, 2016 16:36 - CONCLUSION: 1. No acute findings. Mild constipation. Durga Dotson MD Abdomen/Pelvis CT 04/12/16 0000 Signed Impressions: Service Date/Time: Tuesday, April 12, 2016 20:52 - CONCLUSION: 1. 6.4 cm necrotic mass or abscess in the soft tissues posteriorly just below the sacrum associated with some bony destructive change of the lower most sacrum and coccyx with inflammatory changes extending into the ischiorectal fossa and into the presacral retroperitoneum predominantly on the left side. There is associated fairly marked mural thickening of the anal verge and rectum. 2. There is gastrostomy and Arevalo catheter present. Stable abdominal aortic aneurysm. Durga Dotson MD Head Magnetic Resonance Angiography 03/05/16 0000 Signed Impressions: Service Date/Time: Saturday, March 05, 2016 09:26 - CONCLUSION: Persistent high-grade subtotal occlusive stenotic lesions in the distal right vertebral artery and proximal basilar artery with significant improvement in flow and recanalization following initial presentation of thrombosis. Stable interstitial circulation without significant stenosis. 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 There is decreasing restricted diffusion and increasing loss of volume characteristic of a subacute to chronic infarct. No evidence of acute infarct, acute hemorrhage mass or edema. Ernesto Kulkarni MD Head CT 01/16/16 0000 Signed Impressions: Service Date/Time: Saturday, January 16, 2016 10:51 - CONCLUSION: No extensive low density in the brainstem colin more prominent in the right the left extending into the right middle cerebellar peduncle consistent with brainstem infarct nonhemorrhagic acute Wellington West MD Neck Magnetic Resonance Angiography 12/22/15 1445 Signed Impressions: Service Date/Time: Tuesday, December 22, 2015 09:22 - CONCLUSION: Variant origin of the left vertebral artery from the aortic arch. No evidence of carotid stenosis. Glen Zamora MD Head/Brain Mag Res Venography 12/22/15 0000 Signed Impressions: Service Date/Time: Tuesday, December 22, 2015 09:22 - CONCLUSION: Normal MRV. Jonel Jones Jr., MD Objective Remarks GENERAL: Pt encountered laying a bed, non-verbal, tracking people in room. Not in acute distress. Followed commands to visually track clinician's finger. SKIN: Warm and dry. tattoo noted on right forearm. HEAD: Normocephalic. EYES: Non-icteric without injection or drainage. Pt noted to have eyes open for much of clinical visit. NECK: Supple, trachea midline. T-tube in place. CARDIOVASCULAR: Regular rate and rhythm without murmurs, gallops, or rubs. RESPIRATORY: Breath sounds equal bilaterally;. No accessory muscle use. Trach tube in place. Bedside monitor indicated oxygen saturation was 96%. GASTROINTESTINAL: Abdomen soft, non-tender, nondistended. GJ tube noted, area around insertion was dry and seemingly without leakage. MUSCULOSKELETAL: No cyanosis, or edema. Bilateral lower leg SCD's present. PSYCHIATRIC: Pt non-verbal, he appeared calm and not in distress. Pt anticipated request to squeeze (right) hand Procedures 01/02/16 PEG placement 01/02/16 tracheostomy 07/22/2016 Wide excision of sacral skin wound, biopsy of the cavity lining and debridement. 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 Nonverbal, paraplegia, global apraxia -Continue Keppra, Palliative care following. Monitor Keppra level periodically. 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 Recovery is not expected to occur. -24/ care will be needed, so home health and hospice are not good options for him Chronic Respiratory failure, secondary to CVA -Tracheostomy in place -Continue Levsin as needed for secretions -Pulmonology following -As needed oxygen -Xopenex nebs as needed GI/Nutrition. -Cont tube feedings -PEG tube replaced 12/31/16. -Free water increased to 200 ml q 6 Hrs. Depression: Continue Paxil. A-fib, chronic -continue Lopressor, Cardizem, ASA -Monitor tele Coccyx pressure ulcer, colostomy declined by family (inability to divert feces in this chronic setting increases risks with ulcer and for recurrence of ulcers) -repositioning Q2H -Cont. wound care recommendations -Pain management with PO [place] Diabetes mellitus -Accu checks with SSI -Patient is on tube feeds, use diabetic tube feeds -Continue Levemir Chronic Arevalo -monitor for UTI symptoms DVT prophylaxis: Heparin Discussed with pt's mother (at bedside), CHAPITO Tao (at bedside), and Dr. Pruitt. Discharge Planning Pending placement. Will need long-term SNF placement, that will accept tracheostomy. As on 12/27/16 no accepting facility as of yet. Problem Qualifiers (1) CVA (cerebral vascular accident): (2) DM (diabetes mellitus): Qualified Code: E11.9 - Type 2 diabetes mellitus without complications Javier Harris Jr. Jan 01, 2017 12:05
--- NOTE | 2017-01-01 12:47 | RADRPT ---
EXAM DATE/TIME: 12/31/2016 16:35 [facility] COMPARISON: CHANGE OF GJ-TUBE CATHETER, December 20, 2016, 14:13. INDICATIONS : Patient with history of CVA in need of clogged GJ tube exchange. MEDICAL HISTORY : CVA, HTN, A-Fib, Non hodgkins lymphoma, Chemotherapy, Diabetes, Esophagitis, MRSA, Gastric ulcers, Sa cral ulcers SURGICAL HISTORY : PEG tube placement, Brain biopsy, Tracheostomy, Left arm surgery, Sacral biopsy ENCOUNTER: Subsequent ACUITY: >1 year PAIN SCORE: 0/10 FLUORO TIME: 2.5 minutes IMAGE SERIES: 4 CONTRAST: 15 cc Omnipaque (iohexol) 350 DEVICE(S): 1.) 22 [place] Transgastric tube PROCEDURE : 1. Fluoroscopically guided gastrojejunostomy tube exchange. 2. Conscious sedation with continuous EKG and oximetry monitoring. The risks, benefits and alternatives to the procedure were explained and verbal and written consent w as obtained. The site was prepped in sterile fashion. Full sterile technique was used, including ca p, mask, sterile gloves and gown and a large sterile sheet. Hand hygiene and 2% chlorhexidine and/or betadine/alcohol prep was utilized per protocol for cutaneous antisepsis. The skin and subcutaneous tissues were infiltrated with local anesthetic solution. With fluoroscopic guidance a guidewire was passed through the previous gastrojejunostomy tube and a f resh tube was placed over the guidewire. The balloon was inflated with appropriate volume of saline. Injection of positive contrast demonstrates good position of the gastric and jejunal lumens of the tube. Conscious sedation was performed with the prescribed dosages and duration as above in the presence of an independent trained radiology nurse to assist in the monitoring of the patient. EKG and oximetry remained stable throughout the procedure. The patient tolerated the procedure well and there were n o complications. The patient was sent to post anesthesia recovery in stable condition. CONCLUSION: Uncomplicated gastrojejunostomy tube exchange as above. Moises Ramírez MD on January 01, 2017 at 12:08 Board Certified Radiologist. This report was verified electronically.
--- NOTE | 2017-01-01 16:05 | HHI.PR ---
Subjective Remarks opens eyes on o2 , o2 SAT 97% ON T PIECE NO DITRESS TRACH. [place] new PEG TUBE PLACED Objective Vital Signs Date Time Temp Pulse Resp B/P Pulse Ox O2 Delivery O2 Flow Rate FiO2 01/01/17 12:00 96.7 89 17 98/69 97 01/01/17 10:12 88 01/01/17 09:27 97 T-piece 5.00 01/01/17 08:00 96.7 70 15 135/76 94 01/01/17 08:00 96.2 100 16 111/72 90 01/01/17 05:12 97.6 92 19 115/64 96 01/01/17 00:12 97.6 74 19 112/68 99 12/31/16 21:20 97.2 84 19 124/78 98 12/31/16 21:00 85 I/O 12/31/16 12/31/16 12/31/16 01/01/17 01/01/17 01/01/17 07:00 15:00 23:00 07:00 15:00 23:00 Intake Total 690 ml 1235 ml 200 ml Output Total 750 ml 650 ml 1050 ml Balance -750 ml -650 ml 690 ml 185 ml 200 ml IV Total 300 ml Tube Feeding 240 ml 645 ml Tube Irrigant 290 ml Other 150 ml 300 ml 200 ml Output Urine Total 750 ml 650 ml 1050 ml # Bowel Movements 0 1 2 Procedures 01/02/16 PEG placement 01/02/16 tracheostomy 07/22/2016 Wide excision of sacral skin wound, biopsy of the cavity lining and debridement. PEG tube replacement 07/29/16 Objective Remarks GENERAL: SKIN: Warm and dry. HEAD: Atraumatic. Normocephalic. EYES: Pupils equal and round. No scleral icterus. No injection or drainage. ENT: No nasal bleeding or discharge. Mucous membranes pink and moist. NECK: Trachea midline. No JVD. TRACH. [place] CARDIOVASCULAR: Regular rate and rhythm. RESPIRATORY: No accessory muscle use. Clear to auscultation. Breath sounds equal bilaterally. GASTROINTESTINAL: Abdomen soft, non-tender, nondistended. Hepatic and splenic margins not palpable. MUSCULOSKELETAL: Extremities without clubbing, cyanosis, or edema. No obvious deformities. NEUROLOGICAL: Awake and alert. No obvious cranial nerve deficits. Motor grossly within normal limits. Five out of 5 muscle strength in the arms and legs. Normal speech. PSYCHIATRIC: Appropriate mood and affect; insight and judgment normal. Assessment and Plan Assessment and Plan impression respiratory failure CVA S/P TRACHEOSTOMY PLAN O2 NEEDED PULM. TOFLORENCIAT Brandon Taylor MD Jan 01, 2017 16:05
[2017-01-01] MEDS: HYOSCYAMINE 0.125 MG TAB G-TUBE PRN (16:35)
[2017-01-01] MEDS: SENNOSIDES SYRUP 8.8 MG/5 ML CUP PEG SCH (16:45)
[2017-01-01] MEDS: BACITRACIN TOP OINT 15 GM TUBE TOP SCH ×2 (16:45→21:00)
--- NOTE | 2017-01-01 17:41 | RADRPT ---
EXAM DATE/TIME: 01/01/2017 16:32 [facility] COMPARISON: CHEST SINGLE AP, December 06, 2016, 11:07. INDICATIONS : Re-positioning of tracheostomy tube MEDICAL HISTORY : Hypertension. Diabetes mellitus type II. SURGICAL HISTORY : None. ENCOUNTER: Initial ACUITY: 1 day PAIN SCORE: Non-responsive. LOCATION: Bilateral chest FINDINGS: Single view chest demonstrates the patient's tracheostomy to be in good position. The lungs are clear . The heart is normal in size. The bony structures are grossly intact. CONCLUSION: 1. Tracheostomy is in satisfactory position. Moises Ramírez MD on January 01, 2017 at 17:39 Board Certified Radiologist. This report was verified electronically.
[2017-01-01] MEDS: NYSTATIN 100,000 U/GM PWD 15 GM BTL TOPICAL SCH ×2 (18:37→21:00)
[2017-01-01] MEDS: PARoxetine HCL SUSP 20 MG/10 ML UDC PEG SCH ×2 (18:38→18:45)
[2017-01-02] VITALS (10 sets, daily range): BP systolic 104–137; BP diastolic 69–90; PULSE 85–103; RESP 20–25; TEMP 96.5–99; O2SAT 95–98
[2017-01-02] MEDS: DILTIAZEM HCL 30 MG TAB PEG SCH ×2 (01:35→12:18)
[2017-01-02] MEDS: ACETIC ACID 0.25% SOLN 1000 ML IRR BTL IRRIGATION SCH ×3 (05:06→21:10)
[2017-01-02] MEDS: FREE WATER TUBE SCH ×4 (05:06→18:00)
[2017-01-02] MEDS: HEPARIN SODIUM - SQ 10,000 UNITS/ML VIAL SQ SCH ×3 (05:06→21:09)
[2017-01-02] MEDS: INSULIN ASPART SUPPLEMENTAL SCALE SQ SCH (07:00)
[2017-01-02] MEDS: METOPROLOL TARTRATE 25 MG TAB PEG SCH ×2 (07:33→21:09)
[2017-01-02] MEDS: MAGNESIUM HYDROXIDE SUSP 30 ML CUP PEG SCH (07:33)
[2017-01-02] MEDS: POTASSIUM CHLORIDE 25 MEQ EFFERVESCENT TAB TUBE SCH (07:33)
[2017-01-02] MEDS: levETIRAcetam 500 MG/5 ML UDC TUBE SCH ×2 (07:33→21:09)
[2017-01-02] MEDS: LACTULOSE SYRUP 20 GM/30 ML CUP PEG SCH (07:33)
[2017-01-02] MEDS: ASPIRIN 325 MG TAB TUBE SCH (07:33)
[2017-01-02] MEDS: KETOCONAZOLE 2% CREAM 15 GM TOPICAL SCH (07:34)
[2017-01-02] MEDS: BACITRACIN TOP OINT 15 GM TUBE TOP SCH ×2 (07:42→21:00)
[2017-01-02] MEDS: ARTIFICIAL TEARS OPTH SOLN 15 ML BTL EACH EYE SCH ×2 (07:42→21:00)
[2017-01-02] MEDS: SODIUM CHLORIDE 0.65% NASAL SPRAY 45 ML BTL NASAL SCH ×2 (07:43→21:00)
[2017-01-02] MEDS: NYSTATIN 100,000 U/GM PWD 15 GM BTL TOPICAL SCH ×2 (07:43→21:00)
[2017-01-02] MEDS: PANTOPRAZOLE SODIUM 40 MG VIAL IV PUSH SCH ×2 (07:47→21:08)
--- NOTE | 2017-01-02 11:18 | HHI.PR ---
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 Patient continues to be nonverbal, and is not involved in his care. Patient seen and examined today. Patient lying in bed in no apparent distress. Mother at bed side no questions this morning. Pt's RN (Rosie) denied acute changes over night. She did speak about a rash that had been reported in the past and is no longer present, requested discontinuation of medication for that issue. RN stated she changed urinary catheter this morning based on house policy of Arevalo catheters being changed out every 30 days. VSS No new issues noted or reported. Objective Vitals Vital Signs Date Time Temp Pulse Resp B/P Pulse Ox O2 Delivery O2 Flow Rate FiO2 01/02/17 10:42 89 01/02/17 07:45 97.3 90 20 107/71 95 01/02/17 04:00 99.0 86 20 137/90 96 01/02/17 01:35 85 104/69 01/02/17 01:15 98 Trach Collar 6.00 01/02/17 00:00 97.3 100 20 113/78 98 01/01/17 20:00 100.1 112 20 179/115 94 01/01/17 16:00 100 5.00 50 01/01/17 12:00 96.7 89 17 98/69 97 I/O 01/01/17 01/01/17 01/01/17 01/02/17 01/02/17 01/02/17 07:00 15:00 23:00 07:00 15:00 23:00 Intake Total 1235 ml 200 ml 411 ml 1436 ml 80 ml Output Total 1050 ml 525 ml 300 ml 1200 ml Balance 185 ml -325 ml 111 ml 236 ml 80 ml IV Total 411 ml 376 ml Tube Feeding 645 ml 1060 ml Tube Irrigant 290 ml Other 300 ml 200 ml 80 ml Output Urine Total 1050 ml 525 ml 300 ml 1200 ml # Bowel Movements 2 3 2 2 Imaging Last Impressions Chest X-Ray 01/01/17 0000 Signed Impressions: Service Date/Time: Sunday, January 01, 2017 16:32 - CONCLUSION: 1. Tracheostomy is in satisfactory position. Moises Ramírez MD Tube Change 12/31/16 0000 Signed Impressions: Service Date/Time: Saturday, December 31, 2016 16:35 - CONCLUSION: Uncomplicated gastrojejunostomy tube exchange as above. Moises Ramírez MD Tube Check 12/04/16 0000 Signed Impressions: Service Date/Time: Sunday, December 04, 2016 17:58 - CONCLUSION: Uncomplicated tube injection as above. the tube is in good position and functions normally. Moises Ramírez MD Abdomen X-Ray 08/31/16 0000 Signed Impressions: Service Date/Time: Wednesday, August 31, 2016 16:36 - CONCLUSION: 1. No acute findings. Mild constipation. Durga Dotson MD Abdomen/Pelvis CT 04/12/16 0000 Signed Impressions: Service Date/Time: Tuesday, April 12, 2016 20:52 - CONCLUSION: 1. 6.4 cm necrotic mass or abscess in the soft tissues posteriorly just below the sacrum associated with some bony destructive change of the lower most sacrum and coccyx with inflammatory changes extending into the ischiorectal fossa and into the presacral retroperitoneum predominantly on the left side. There is associated fairly marked mural thickening of the anal verge and rectum. 2. There is gastrostomy and Arevalo catheter present. Stable abdominal aortic aneurysm. Durga Dotson MD Head Magnetic Resonance Angiography 03/05/16 0000 Signed Impressions: Service Date/Time: Saturday, March 05, 2016 09:26 - CONCLUSION: Persistent high-grade subtotal occlusive stenotic lesions in the distal right vertebral artery and proximal basilar artery with significant improvement in flow and recanalization following initial presentation of thrombosis. Stable interstitial circulation without significant stenosis. 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 There is decreasing restricted diffusion and increasing loss of volume characteristic of a subacute to chronic infarct. No evidence of acute infarct, acute hemorrhage mass or edema. Ernesto Kulkarni MD Head CT 01/16/16 0000 Signed Impressions: Service Date/Time: Saturday, January 16, 2016 10:51 - CONCLUSION: No extensive low density in the brainstem colin more prominent in the right the left extending into the right middle cerebellar peduncle consistent with brainstem infarct nonhemorrhagic acute Wellington West MD Neck Magnetic Resonance Angiography 12/22/15 1445 Signed Impressions: Service Date/Time: Tuesday, December 22, 2015 09:22 - CONCLUSION: Variant origin of the left vertebral artery from the aortic arch. No evidence of carotid stenosis. Glen Zamora MD Head/Brain Mag Res Venography 12/22/15 0000 Signed Impressions: Service Date/Time: Tuesday, December 22, 2015 09:22 - CONCLUSION: Normal MRV. Jonel Jones Jr., MD Objective Remarks GENERAL: Pt encountered laying a bed, non-verbal, tracking people in room. Not in acute distress. Followed commands to visually track clinician's finger. SKIN: Warm and dry. tattoo noted on right forearm. No rash of right upper extremity appreciated. HEAD: Normocephalic. EYES: Non-icteric without injection or drainage. Pt noted to have eyes open for much of clinical visit. NECK: Supple, trachea midline. T-tube in place. CARDIOVASCULAR: Regular rate and rhythm without murmurs, gallops, or rubs. RESPIRATORY: Breath sounds equal bilaterally;. No accessory muscle use. Trach tube in place. Bedside monitor indicated oxygen saturation was 97%. GASTROINTESTINAL: Abdomen soft, non-tender, nondistended. GJ tube noted, area around insertion was dry and seemingly without leakage. MUSCULOSKELETAL: No cyanosis, or edema. Bilateral lower leg SCD's present. PSYCHIATRIC: Pt non-verbal, he appeared calm and not in distress. Procedures 01/02/16 PEG placement 01/02/16 tracheostomy 07/22/2016 Wide excision of sacral skin wound, biopsy of the cavity lining and debridement. 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 Monitor Keppra level periodically. -Seizure precautions -Supportive care, long term care pharmacist needed for chronic and profound neurologic deficits. Recovery is not expected to occur. -24/7 care will be needed, so home health and hospice are not good options for him Chronic Respiratory failure, secondary to CVA -Tracheostomy in place -Continue Levsin as needed for secretions -Pulmonology following -As needed oxygen -Xopenex nebs as needed -Shannon-cat called on 01/01/17 due to pt decannulating himself with a cough. CXR obtained and indicated new T- Tube is satisfactorily placed. No residual issues noted. GI/Nutrition. -Cont tube feedings -PEG tube replaced 12/31/16. -Free water increased to 200 ml q 6 Hrs. Depression: Continue Paxil. A-fib, chronic -continue Lopressor, Cardizem, ASA -Monitor tele Coccyx pressure ulcer, colostomy declined by family (inability to divert feces in this chronic setting increases risks with ulcer and for recurrence of ulcers) -repositioning Q2H -Cont. wound care recommendations -Pain management with PO [place] Diabetes mellitus -Accu checks with SSI -Patient is on tube feeds, use diabetic tube feeds -Continue Levemir Chronic Arevalo -monitor for UTI symptoms -Arevalo changed 01/02/17 to be changed every 30 days. DVT prophylaxis: Heparin Discussed with pt's mother (at bedside), CHAPITO Velez (at bedside), interactive media specialist Donna and Dr. Pruitt. Discharge Planning Pending placement. Will need long-term SNF placement, that will accept tracheostomy. As on 12/27/16 no accepting facility as of yet. Problem Qualifiers (1) CVA (cerebral vascular accident): (2) DM (diabetes mellitus): Qualified Code: E11.9 - Type 2 diabetes mellitus without complications Javier Harris Jr. Jan 02, 2017 11:18
[2017-01-02] MEDS: ACETAMINOPHEN 650 MG/20.3 ML UDC TUBE PRN (12:18)
[2017-01-02] MEDS: SENNOSIDES SYRUP 8.8 MG/5 ML CUP PEG SCH (14:30)
--- NOTE | 2017-01-02 18:07 | HHI.PR ---
Subjective Remarks opens eyes on o2 , o2 SAT 97% ON T PIECE NO DITRESS TRACH. [place] new PEG TUBE PLACED Objective Vital Signs Date Time Temp Pulse Resp B/P Pulse Ox O2 Delivery O2 Flow Rate FiO2 01/02/17 17:50 96 T-piece 28 01/02/17 17:49 96 T-piece 6.00 28 01/02/17 16:00 96.5 90 25 114/69 96 01/02/17 15:12 96 Trach Collar 6.00 28 01/02/17 11:55 97.2 94 25 121/79 98 01/02/17 10:42 89 01/02/17 07:45 97.3 90 20 107/71 95 01/02/17 04:00 99.0 86 20 137/90 96 01/02/17 01:35 85 104/69 01/02/17 01:15 98 Trach Collar 6.00 01/02/17 00:00 97.3 100 20 113/78 98 01/01/17 20:00 100.1 112 20 179/115 94 I/O 01/01/17 01/01/17 01/01/17 01/02/17 01/02/17 01/02/17 07:00 15:00 23:00 07:00 15:00 23:00 Intake Total 1235 ml 200 ml 411 ml 1436 ml 80 ml 1003 ml Output Total 1050 ml 525 ml 300 ml 1200 ml 600 ml Balance 185 ml -325 ml 111 ml 236 ml 80 ml 403 ml IV Total 411 ml 376 ml 293 ml Tube Feeding 645 ml 1060 ml 710 ml Tube Irrigant 290 ml Other 300 ml 200 ml 80 ml Output Urine Total 1050 ml 525 ml 300 ml 1200 ml 600 ml # Bowel Movements 2 3 2 2 2 Procedures 01/02/16 PEG placement 01/02/16 tracheostomy 07/22/2016 Wide excision of sacral skin wound, biopsy of the cavity lining and debridement. PEG tube replacement 07/29/16 Objective Remarks GENERAL: SKIN: Warm and dry. HEAD: Atraumatic. Normocephalic. EYES: Pupils equal and round. No scleral icterus. No injection or drainage. ENT: No nasal bleeding or discharge. Mucous membranes pink and moist. NECK: Trachea midline. No JVD. TRACH. [place] CARDIOVASCULAR: Regular rate and rhythm. RESPIRATORY: No accessory muscle use. Clear to auscultation. Breath sounds equal bilaterally. GASTROINTESTINAL: Abdomen soft, non-tender, nondistended. Hepatic and splenic margins not palpable. MUSCULOSKELETAL: Extremities without clubbing, cyanosis, or edema. No obvious deformities. NEUROLOGICAL: Awake and alert. No obvious cranial nerve deficits. Motor grossly within normal limits. Five out of 5 muscle strength in the arms and legs. Normal speech. PSYCHIATRIC: Appropriate mood and affect; insight and judgment normal. Assessment and Plan Assessment and Plan impression respiratory failure CVA S/P TRACHEOSTOMY cxray NO ACUTE CHANGE PLAN O2 NEEDED PULM. TOILET Brandon Taylor MD Jan 02, 2017 18:07
[2017-01-02] MEDS: PARoxetine HCL SUSP 20 MG/10 ML UDC PEG SCH (18:19)
[2017-01-02] MEDS: SODIUM CHLOR 0.9% 1000 ML INJ 1,000 ML IV SCH (18:25)
[2017-01-03] VITALS (8 sets, daily range): BP systolic 116–124; BP diastolic 65–80; PULSE 86–104; RESP 20; TEMP 97–98.9; O2SAT 94–98
[2017-01-03] MEDS: DILTIAZEM HCL 30 MG TAB PEG SCH ×2 (01:00→11:30)
[2017-01-03] MEDS: ACETIC ACID 0.25% SOLN 1000 ML IRR BTL IRRIGATION SCH ×3 (04:49→21:16)
[2017-01-03] MEDS: HEPARIN SODIUM - SQ 10,000 UNITS/ML VIAL SQ SCH ×3 (04:49→21:09)
[2017-01-03] MEDS: FREE WATER TUBE SCH ×5 (04:49→21:16)
[2017-01-03] MEDS: INSULIN ASPART SUPPLEMENTAL SCALE SQ SCH (06:05)
[2017-01-03] MEDS: POTASSIUM CHLORIDE 25 MEQ EFFERVESCENT TAB TUBE SCH (08:08)
[2017-01-03] MEDS: MAGNESIUM HYDROXIDE SUSP 30 ML CUP PEG SCH (08:08)
[2017-01-03] MEDS: BACITRACIN TOP OINT 15 GM TUBE TOP SCH ×2 (08:09→21:13)
[2017-01-03] MEDS: LACTULOSE SYRUP 20 GM/30 ML CUP PEG SCH (08:09)
[2017-01-03] MEDS: PANTOPRAZOLE SODIUM 40 MG VIAL IV PUSH SCH ×2 (08:09→21:16)
[2017-01-03] MEDS: ASPIRIN 325 MG TAB TUBE SCH (08:09)
[2017-01-03] MEDS: SODIUM CHLORIDE 0.65% NASAL SPRAY 45 ML BTL NASAL SCH ×2 (08:09→21:14)
[2017-01-03] MEDS: METOPROLOL TARTRATE 25 MG TAB PEG SCH ×2 (08:09→21:09)
[2017-01-03] MEDS: levETIRAcetam 500 MG/5 ML UDC TUBE SCH ×2 (08:09→21:09)
[2017-01-03] MEDS: ARTIFICIAL TEARS OPTH SOLN 15 ML BTL EACH EYE SCH ×2 (08:09→21:14)
[2017-01-03] MEDS: NYSTATIN 100,000 U/GM PWD 15 GM BTL TOPICAL SCH ×2 (08:09→21:15)
--- NOTE | 2017-01-03 08:42 | HHI.PR ---
Subjective Remarks opens eyes on o2 , o2 SAT 97% ON T PIECE NO DITRESS TRACH. [place] new PEG TUBE PLACED Objective Vital Signs Date Time Temp Pulse Resp B/P Pulse Ox O2 Delivery O2 Flow Rate FiO2 01/03/17 08:03 97.0 96 20 119/71 98 01/03/17 04:00 98.9 92 20 117/70 98 01/03/17 00:00 97.2 88 20 124/80 94 01/02/17 20:00 98.3 103 20 125/76 97 01/02/17 17:50 96 T-piece 28 01/02/17 17:49 96 T-piece 6.00 28 01/02/17 16:00 96.5 90 25 114/69 96 01/02/17 15:12 96 Trach Collar 6.00 28 01/02/17 11:55 97.2 94 25 121/79 98 01/02/17 10:42 89 I/O 01/02/17 01/02/17 01/02/17 01/03/17 01/03/17 01/03/17 06:59 14:59 22:59 06:59 14:59 22:59 Intake Total 1516 ml 1403 ml 1420 ml Output Total 1200 ml 825 ml 500 ml Balance -1200 ml 1516 ml 578 ml 920 ml IV Total 376 ml 293 ml Tube Feeding 1060 ml 710 ml 1020 ml Other 80 ml 400 ml 400 ml Output Urine Total 1200 ml 825 ml 500 ml # Bowel Movements 2 4 3 Procedures 01/02/16 PEG placement 01/02/16 tracheostomy 07/22/2016 Wide excision of sacral skin wound, biopsy of the cavity lining and debridement. PEG tube replacement 07/29/16 Objective Remarks GENERAL: SKIN: Warm and dry. HEAD: Atraumatic. Normocephalic. EYES: Pupils equal and round. No scleral icterus. No injection or drainage. ENT: No nasal bleeding or discharge. Mucous membranes pink and moist. NECK: Trachea midline. No JVD. TRACH. [place] CARDIOVASCULAR: Regular rate and rhythm. RESPIRATORY: No accessory muscle use. Clear to auscultation. Breath sounds equal bilaterally. GASTROINTESTINAL: Abdomen soft, non-tender, nondistended. Hepatic and splenic margins not palpable. MUSCULOSKELETAL: Extremities without clubbing, cyanosis, or edema. No obvious deformities. NEUROLOGICAL: Awake and alert. No obvious cranial nerve deficits. Motor grossly within normal limits. Five out of 5 muscle strength in the arms and legs. Normal speech. PSYCHIATRIC: Appropriate mood and affect; insight and judgment normal. Assessment and Plan Assessment and Plan impression respiratory failure CVA S/P TRACHEOSTOMY cxray NO ACUTE CHANGE PLAN O2 NEEDED PULM. TOILET Brandon Taylor MD Jan 03, 2017 08:42
--- NOTE | 2017-01-03 13:12 | HHI.PR ---
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 Patient continues to be nonverbal, and is not involved in his care. Patient seen and examined today. Patient lying in bed in no apparent distress. Mother and ex- at bed side no questions this morning. Pt's RN (Janel) denied acute changes over night. VSS. Objective Vitals Vital Signs Date Time Temp Pulse Resp B/P Pulse Ox O2 Delivery O2 Flow Rate FiO2 01/03/17 11:48 97.7 86 20 124/77 95 01/03/17 11:40 96 01/03/17 09:29 95 T-piece 28 01/03/17 09:29 95 Trach Collar 01/03/17 08:03 97.0 96 20 119/71 98 01/03/17 04:00 98.9 92 20 117/70 98 01/03/17 00:00 97.2 88 20 124/80 94 01/02/17 20:00 98.3 103 20 125/76 97 01/02/17 17:50 96 T-piece 28 01/02/17 17:49 96 T-piece 6.00 28 01/02/17 16:00 96.5 90 25 114/69 96 01/02/17 15:12 96 Trach Collar 6.00 28 I/O 01/02/17 01/02/17 01/02/17 01/03/17 01/03/17 01/03/17 07:00 15:00 23:00 07:00 15:00 23:00 Intake Total 1436 ml 80 ml 1403 ml 1420 ml Output Total 1200 ml 825 ml 500 ml Balance 236 ml 80 ml 578 ml 920 ml IV Total 376 ml 293 ml Tube Feeding 1060 ml 710 ml 1020 ml Other 80 ml 400 ml 400 ml Output Urine Total 1200 ml 825 ml 500 ml # Bowel Movements 2 4 3 Imaging Last Impressions Chest X-Ray 01/01/17 0000 Signed Impressions: Service Date/Time: Sunday, January 01, 2017 16:32 - CONCLUSION: 1. Tracheostomy is in satisfactory position. Moises Ramírez MD Tube Change 12/31/16 0000 Signed Impressions: Service Date/Time: Saturday, December 31, 2016 16:35 - CONCLUSION: Uncomplicated gastrojejunostomy tube exchange as above. Moises Ramírez MD Tube Check 12/04/16 0000 Signed Impressions: Service Date/Time: Sunday, December 04, 2016 17:58 - CONCLUSION: Uncomplicated tube injection as above. the tube is in good position and functions normally. Moises Ramírez MD Abdomen X-Ray 08/31/16 0000 Signed Impressions: Service Date/Time: Wednesday, August 31, 2016 16:36 - CONCLUSION: 1. No acute findings. Mild constipation. Durga Dotson MD Abdomen/Pelvis CT 04/12/16 0000 Signed Impressions: Service Date/Time: Tuesday, April 12, 2016 20:52 - CONCLUSION: 1. 6.4 cm necrotic mass or abscess in the soft tissues posteriorly just below the sacrum associated with some bony destructive change of the lower most sacrum and coccyx with inflammatory changes extending into the ischiorectal fossa and into the presacral retroperitoneum predominantly on the left side. There is associated fairly marked mural thickening of the anal verge and rectum. 2. There is gastrostomy and Arevalo catheter present. Stable abdominal aortic aneurysm. Durga Dotson MD Head Magnetic Resonance Angiography 03/05/16 0000 Signed Impressions: Service Date/Time: Saturday, March 05, 2016 09:26 - CONCLUSION: Persistent high-grade subtotal occlusive stenotic lesions in the distal right vertebral artery and proximal basilar artery with significant improvement in flow and recanalization following initial presentation of thrombosis. Stable interstitial circulation without significant stenosis. 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 There is decreasing restricted diffusion and increasing loss of volume characteristic of a subacute to chronic infarct. No evidence of acute infarct, acute hemorrhage mass or edema. Ernesto Kulkarni MD Head CT 01/16/16 0000 Signed Impressions: Service Date/Time: Saturday, January 16, 2016 10:51 - CONCLUSION: No extensive low density in the brainstem colin more prominent in the right the left extending into the right middle cerebellar peduncle consistent with brainstem infarct nonhemorrhagic acute Wellington West MD Neck Magnetic Resonance Angiography 12/22/15 1445 Signed Impressions: Service Date/Time: Tuesday, December 22, 2015 09:22 - CONCLUSION: Variant origin of the left vertebral artery from the aortic arch. No evidence of carotid stenosis. Glen Zamora MD Head/Brain Mag Res Venography 12/22/15 0000 Signed Impressions: Service Date/Time: Tuesday, December 22, 2015 09:22 - CONCLUSION: Normal MRV. Jonel Jones Jr., MD Objective Remarks GENERAL: Pt encountered laying a bed, non-verbal, tracking people in room. Not in acute distress. Followed commands to visually track clinician's finger. SKIN: Warm and dry. tattoo noted on right forearm. No rash of right upper extremity appreciated. HEAD: Normocephalic. EYES: Non-icteric without injection or drainage. Pt noted to have eyes open for much of clinical visit. NECK: Supple, trachea midline. T-tube in place. CARDIOVASCULAR: Regular rate and rhythm without murmurs, gallops, or rubs. RESPIRATORY: Breath sounds equal bilaterally;. No accessory muscle use. Trach tube in place. Bedside monitor indicated oxygen saturation was 95%. GASTROINTESTINAL: Abdomen soft, non-tender, nondistended. GJ tube noted, area around insertion was dry and seemingly without leakage. MUSCULOSKELETAL: No cyanosis, or edema. Bilateral lower leg SCD's present. Slight movement of left thumb noted when pt was asked to squeeze using left hand ,. PSYCHIATRIC: Pt non-verbal, he appeared calm and not in distress. Procedures 01/02/16 PEG placement 01/02/16 tracheostomy 07/22/2016 Wide excision of sacral skin wound, biopsy of the cavity lining and debridement. PEG tube replacement 07/29/16 VAC changes- M-W-F 4/5- GJ tube replacement Medications and IVs Current Medications Medications (Trade) Dose Ordered Sig/Junior Route Start Time Stop Time Status Last Admin (NS Flush) 2 ml UNSCH PRN IVF 12/21/15 06:00 09/28/16 21:18 (Keppra Liq) 500 mg Q12HR TUBE 12/27/15 21:00 01/03/17 08:09 (Tylenol 650 Mg/ 20 ml Liq) 650 mg Q6H PRN TUBE 12/30/15 15:15 01/02/17 12:18 (Mycostatin Powder) 1 applic Q12HR TOPICAL 01/08/16 21:00 01/03/17 08:09 (Pill Splitter) 1 ea UNSCH PRN OTHER 01/14/16 08:30 (Acetic Acid 0.25% Irr Btl) 10 ml Q8HR IRRIGATION 02/05/16 16:00 01/03/17 04:49 (Ativan Inj) 0.5 mg Q4H PRN IV PUSH 03/07/16 23:00 (Paxil Liq) 20 mg DAILY@1900 PEG 03/12/16 19:00 01/02/17 18:19 (Levemir Inj) 35 units HS SQ 03/24/16 21:00 Hold 11/15/16 22:06 (Levsin) 0.25 mg Q4H PRN G-TUBE 04/11/16 10:30 01/01/17 16:35 (Zofran Inj) 4 mg Q6HR PRN IV PUSH 04/14/16 19:45 08/10/16 10:16 (D50w (Vial) Inj) 25 ml UNSCH PRN IV 04/20/16 12:00 (Glucagon Inj) 1 mg UNSCH PRN IM/SQ 04/20/16 12:00 (K-Lyte Cl Eff) 25 meq DAILY TUBE 05/28/16 09:00 01/03/17 08:08 (Aspirin) 325 mg DAILY TUBE 05/27/16 11:40 01/03/17 08:09 (Heparin Inj) 5,000 units Q8HR SQ 06/11/16 14:00 01/03/17 04:49 (Baciguent Oint) 1 applic BID TOP 07/20/16 10:00 01/03/17 08:09 (Protonix Inj) 40 mg Q12H IV PUSH 07/30/16 10:15 01/03/17 08:09 ([place]) 1 spray BID NASAL 08/01/16 21:00 01/03/17 08:09 (Tears Naturale Opth Soln) 1 drop BID EACH EYE 09/05/16 21:00 01/03/17 08:09 (Morphine Inj) 1 mg Q24H PRN IV PUSH 09/17/16 14:30 10/22/16 02:00 (Fleets Enema (Adult)) 133 ml UNSCH PRN NE 09/25/16 16:00 (Dulcolax Supp) 10 mg DAILY PRN RECTAL 09/26/16 15:30 12/08/16 09:17 Diltiazem HCl 30 mg 30 mg Q12H PEG 11/20/16 01:00 01/02/17 12:18 (NS 1000 ml Inj) 1,000 ml @ 30 mls/hr Q24H IV 11/28/16 19:45 01/01/17 10:21 (Tylenol - Codeine 120-12 Liq) 5 ml Q4H PRN G-TUBE 12/27/16 15:30 (Flexeril) 5 mg HS PRN PEG 12/27/16 15:30 (Lactulose Liq) 30 ml DAILY PEG 12/28/16 09:00 01/03/17 08:09 (Imodium Liq) 2 mg Q6H PRN PEG 12/27/16 15:30 (Milk Of Magnesia Liq) 30 ml DAILY PRN PEG 12/27/16 15:30 (Milk Of Magnesia Liq) 30 ml DAILY PEG 12/28/16 09:00 01/03/17 08:08 (Lopressor) 25 mg BID PEG 12/27/16 21:00 01/03/17 08:09 (Senna Liq) 8.8 mg DAILY@1600 PEG 12/27/16 16:00 01/01/17 16:45 (Lactulose Liq) 30 ml DAILY PRN PEG 12/27/16 15:30 (Free Water) 200 ml Q6HR TUBE 01/01/17 12:00 01/03/17 11:14 Urinary Catheter: Yes Assessment to: Continue Arevalo insert reason: Prolonged Immobilization Date of Insertion: Oct 12, 2016 A/P Problem List: (1) CVA (cerebral vascular accident) ICD Code: I63.9 Status: Acute (2) A-fib ICD Code: I48.91 Status: Chronic (3) DM (diabetes mellitus) ICD Code: E11.9 Status: Chronic Assessment and Plan 61 year-old male presented with: CVA (cerebral vascular accident): 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 Nonverbal, paraplegia, global apraxia -Continue Keppra, Palliative care following. Monitor Keppra level periodically. 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 Recovery is not expected to occur. -/ care will be needed, so home health and hospice are not good options for him Chronic Respiratory failure, secondary to CVA -Tracheostomy in place -Continue Levsin as needed for secretions -Pulmonology following -As needed oxygen -Xopenex nebs as needed -Shannon-cat called on 01/01/17 due to pt decannulating himself with a cough. CXR obtained and indicated new T- Tube is satisfactorily placed. No residual issues noted. GI/Nutrition. -Cont tube feedings -PEG tube replaced 12/31/16. -Free water increased to 200 ml q 6 Hrs. Depression: Continue Paxil. A-fib, chronic -continue Lopressor, Cardizem, ASA -Monitor tele Coccyx pressure ulcer, colostomy declined by family (inability to divert feces in this chronic setting increases risks with ulcer and for recurrence of ulcers) -repositioning Q2H -Cont. wound care recommendations -Pain management with PO [place] Diabetes mellitus -Accu checks with SSI -Patient is on tube feeds, use diabetic tube feeds -Continue Levemir Chronic Arevalo -monitor for UTI symptoms -Arevalo changed 01/02/17 to be changed every 30 days. DVT prophylaxis: Heparin Discussed with pt's mother and ex- (at bedside), RN Janel (at bedside), GAMMA RAY OPERATOR Judit, and Dr. Pruitt. Discharge Planning Pending placement. Will need long-term SNF placement, that will accept tracheostomy. As on 12/27/16 no accepting facility as of yet. Problem Qualifiers (1) CVA (cerebral vascular accident): (2) DM (diabetes mellitus): Qualified Code: E11.9 - Type 2 diabetes mellitus without complications Javier Harris Jr. Jan 03, 2017 13:12
[2017-01-03] MEDS: SENNOSIDES SYRUP 8.8 MG/5 ML CUP PEG SCH (13:23)
[2017-01-03] MEDS: RESP: LEVALBUTEROL HYDROCHLORIDE 0.63 MG/3 ML NEB (PRN) NEB (13:41)
[2017-01-03] MEDS: PARoxetine HCL SUSP 20 MG/10 ML UDC PEG SCH (18:00)
[2017-01-03] MEDS: SODIUM CHLOR 0.9% 1000 ML INJ 1,000 ML IV SCH (19:04)
[2017-01-04] VITALS (10 sets, daily range): BP systolic 107–131; BP diastolic 65–84; PULSE 92–112; RESP 18–20; TEMP 96.5–100.2; O2SAT 95–99
[2017-01-04] MEDS: DILTIAZEM HCL 30 MG TAB PEG SCH ×2 (01:23→14:03)
[2017-01-04] MEDS: SODIUM CHLOR 0.9% 1000 ML INJ 1,000 ML IV SCH (02:23)
[2017-01-04] MEDS: HEPARIN SODIUM - SQ 10,000 UNITS/ML VIAL SQ SCH ×3 (05:16→20:59)
[2017-01-04] MEDS: FREE WATER TUBE SCH ×3 (05:16→18:37)
[2017-01-04] MEDS: ACETIC ACID 0.25% SOLN 1000 ML IRR BTL IRRIGATION SCH ×3 (05:16→21:03)
[2017-01-04] MEDS: INSULIN ASPART SUPPLEMENTAL SCALE SQ SCH (05:16)
[2017-01-04] MEDS: LACTULOSE SYRUP 20 GM/30 ML CUP PEG SCH (07:50)
[2017-01-04] MEDS: MAGNESIUM HYDROXIDE SUSP 30 ML CUP PEG SCH (07:50)
[2017-01-04] MEDS: levETIRAcetam 500 MG/5 ML UDC TUBE SCH ×2 (07:50→21:00)
[2017-01-04] MEDS: METOPROLOL TARTRATE 25 MG TAB PEG SCH ×2 (07:51→21:00)
[2017-01-04] MEDS: ASPIRIN 325 MG TAB TUBE SCH (07:51)
[2017-01-04] MEDS: POTASSIUM CHLORIDE 25 MEQ EFFERVESCENT TAB TUBE SCH (07:51)
[2017-01-04] MEDS: SODIUM CHLORIDE 0.65% NASAL SPRAY 45 ML BTL NASAL SCH ×2 (07:51→21:01)
[2017-01-04] MEDS: ARTIFICIAL TEARS OPTH SOLN 15 ML BTL EACH EYE SCH ×2 (07:51→21:00)
[2017-01-04] MEDS: NYSTATIN 100,000 U/GM PWD 15 GM BTL TOPICAL SCH ×2 (07:51→21:02)
[2017-01-04] MEDS: BACITRACIN TOP OINT 15 GM TUBE TOP SCH ×2 (07:51→21:02)
[2017-01-04] MEDS: PANTOPRAZOLE SODIUM 40 MG VIAL IV PUSH SCH ×2 (10:31→20:59)
--- NOTE | 2017-01-04 12:52 | HHI.PR ---
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 Patient continues to be nonverbal, and is not involved in his care. Patient seen and examined today. Patient lying in bed in no apparent distress. Mother and ex- at bed side no questions this morning. Pt's RN (Alea) denied acute changes over night. RN did report increased secretion production and need for suctioning this morning. RN discussed pt's wound of long stand duration (reportedly over a year) with little change noted. VSS. Objective Vitals Vital Signs Date Time Temp Pulse Resp B/P Pulse Ox O2 Delivery O2 Flow Rate FiO2 01/04/17 12:06 96.5 98 20 107/65 96 01/04/17 08:15 97 T-piece 28 01/04/17 08:15 97 T-piece 28 01/04/17 08:13 100.2 107 20 122/74 95 01/04/17 04:00 97.5 112 18 127/84 95 01/04/17 00:00 97.0 92 20 131/76 99 01/03/17 21:30 97 T-piece 28 01/03/17 21:30 97 T-piece 28 01/03/17 20:00 97 Trach Collar 6.00 28 01/03/17 20:00 97.4 104 20 116/65 97 01/03/17 20:00 102 I/O 01/03/17 01/03/17 01/03/17 01/04/17 01/04/17 01/04/17 07:00 15:00 23:00 07:00 15:00 23:00 Intake Total 1420 ml 550 ml Output Total 500 ml 1000 ml Balance 920 ml -1000 ml 550 ml Tube Feeding 1020 ml Tube Irrigant 150 ml Other 400 ml 400 ml Output Urine Total 500 ml 1000 ml # Bowel Movements 3 1 2 Objective Remarks GENERAL: Pt encountered laying a bed, non-verbal, not tracking people in room. Not in acute distress. Pt not following commands. SKIN: Warm and dry. tattoo noted on right forearm. No rash of right upper extremity appreciated. HEAD: Normocephalic. EYES: Non-icteric without injection or drainage. Pt noted to have eyes open for much of clinical visit. NECK: Supple, trachea midline. T-tube in place. CARDIOVASCULAR: Regular rate and rhythm without murmurs, gallops, or rubs. RESPIRATORY: Breath sounds equal bilaterally. No accessory muscle use. Trach tube in place. Bedside monitor indicated oxygen saturation was 95%. GASTROINTESTINAL: Abdomen soft, non-tender, nondistended. GJ tube noted, area around insertion was dry and seemingly without leakage. MUSCULOSKELETAL: No cyanosis, or edema. Bilateral lower leg SCD's present. PSYCHIATRIC: Pt non-verbal, he appeared calm and not in distress. Procedures 01/02/16 PEG placement 01/02/16 tracheostomy 07/22/2016 Wide excision of sacral skin wound, biopsy of the cavity lining and debridement. PEG tube replacement 07/29/16 VAC changes- M-W-F 10/23- GJ tube replacement Medications and IVs Current Medications Medications (Trade) Dose Ordered Sig/Junior Route Start Time Stop Time Status Last Admin (NS Flush) 2 ml UNSCH PRN IVF 12/21/15 06:00 09/28/16 21:18 (Keppra Liq) 500 mg Q12HR TUBE 12/27/15 21:00 01/04/17 07:50 (Tylenol 650 Mg/ 20 ml Liq) 650 mg Q6H PRN TUBE 12/30/15 15:15 01/02/17 12:18 (Mycostatin Powder) 1 applic Q12HR TOPICAL 01/08/16 21:00 01/04/17 07:51 (Pill Splitter) 1 ea UNSCH PRN OTHER 01/14/16 08:30 (Acetic Acid 0.25% Irr Btl) 10 ml Q8HR IRRIGATION 02/05/16 16:00 01/04/17 05:16 (Ativan Inj) 0.5 mg Q4H PRN IV PUSH 03/07/16 23:00 (Paxil Liq) 20 mg DAILY@1900 PEG 03/12/16 19:00 01/03/17 18:00 (Levemir Inj) 35 units HS SQ 03/24/16 21:00 Hold 11/15/16 22:06 (Levsin) 0.25 mg Q4H PRN G-TUBE 04/11/16 10:30 01/01/17 16:35 (Zofran Inj) 4 mg Q6HR PRN IV PUSH 04/14/16 19:45 08/10/16 10:16 (D50w (Vial) Inj) 25 ml UNSCH PRN IV 04/20/16 12:00 (Glucagon Inj) 1 mg UNSCH PRN IM/SQ 04/20/16 12:00 (K-Lyte Cl Eff) 25 meq DAILY TUBE 05/28/16 09:00 01/04/17 07:51 (Aspirin) 325 mg DAILY TUBE 05/27/16 11:40 01/04/17 07:51 (Heparin Inj) 5,000 units Q8HR SQ 06/11/16 14:00 01/04/17 05:16 (Baciguent Oint) 1 applic BID TOP 07/20/16 10:00 01/04/17 07:51 (Protonix Inj) 40 mg Q12H IV PUSH 07/30/16 10:15 01/04/17 10:31 ([place]) 1 spray BID NASAL 08/01/16 21:00 01/04/17 07:51 (Tears Naturale Opth Soln) 1 drop BID EACH EYE 09/05/16 21:00 01/04/17 07:51 (Morphine Inj) 1 mg Q24H PRN IV PUSH 09/17/16 14:30 10/22/16 02:00 (Fleets Enema (Adult)) 133 ml UNSCH PRN ME 09/25/16 16:00 (Dulcolax Supp) 10 mg DAILY PRN RECTAL 09/26/16 15:30 12/08/16 09:17 Diltiazem HCl 30 mg 30 mg Q12H PEG 11/20/16 01:00 01/04/17 01:23 (NS 1000 ml Inj) 1,000 ml @ 30 mls/hr Q24H IV 11/28/16 19:45 01/04/17 02:23 (Tylenol - Codeine 120-12 Liq) 5 ml Q4H PRN G-TUBE 12/27/16 15:30 (Flexeril) 5 mg HS PRN PEG 12/27/16 15:30 (Lactulose Liq) 30 ml DAILY PEG 12/28/16 09:00 01/04/17 07:50 (Imodium Liq) 2 mg Q6H PRN PEG 12/27/16 15:30 (Milk Of Magnesia Liq) 30 ml DAILY PRN PEG 12/27/16 15:30 (Milk Of Magnesia Liq) 30 ml DAILY PEG 12/28/16 09:00 01/04/17 07:50 (Lopressor) 25 mg BID PEG 12/27/16 21:00 01/04/17 07:51 (Senna Liq) 8.8 mg DAILY@1600 PEG 12/27/16 16:00 01/01/17 16:45 (Lactulose Liq) 30 ml DAILY PRN PEG 12/27/16 15:30 (Free Water) 200 ml Q6HR TUBE 01/01/17 12:00 01/04/17 12:02 Urinary Catheter: Yes Assessment to: Continue Arevalo insert reason: Prolonged Immobilization Date of Insertion: Oct 12, 2016 A/P Problem List: (1) CVA (cerebral vascular accident) ICD Code: I63.9 Status: Acute (2) A-fib ICD Code: I48.91 Status: Chronic (3) DM (diabetes mellitus) ICD Code: E11.9 Status: Chronic Assessment and Plan 61 year-old male presented with: CVA (cerebral vascular accident): 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 Nonverbal, paraplegia, global apraxia -Continue Keppra, Palliative care following. Monitor Keppra level periodically. -Seizure precautions -Supportive care, care home needed for chronic and profound neurologic deficits. Recovery is not expected to occur. -10/02 care will be needed, so home health and hospice are not good options for him Chronic Respiratory failure, secondary to CVA -Tracheostomy in place -Continue Levsin as needed for secretions -Pulmonology following -As needed oxygen -Xopenex nebs as needed -Shannon-cat called on 01/01/17 due to pt decannulating himself with a cough. CXR obtained and indicated new T- Tube is satisfactorily placed. No residual issues noted. GI/Nutrition. -Cont tube feedings -PEG tube replaced 12/31/16. -Free water increased to 200 ml q 6 Hrs. Depression: Continue Paxil. A-fib, chronic -continue Lopressor, Cardizem, ASA -Monitor tele Coccyx pressure ulcer, colostomy declined by family (inability to divert feces in this chronic setting increases risks with ulcer and for recurrence of ulcers) -repositioning Q2H -Cont. wound care recommendations -Pain management with PO [place] -Last wound care note was 12/12/16. Last three visits no change in treatment regimen warranted. Diabetes mellitus -Accu checks with SSI -Patient is on tube feeds, use diabetic tube feeds -Continue Levemir Chronic Arevalo -monitor for UTI symptoms -Arevalo changed 01/02/17 to be changed every 30 days. DVT prophylaxis: Heparin Discussed with pt's mother and ex- (at bedside), RN Alea, and Dr. Pruitt. Discharge Planning Pending placement. Will need long-term SNF placement, that will accept tracheostomy. As on 12/27/16 no accepting facility as of yet. Problem Qualifiers (1) CVA (cerebral vascular accident): (2) DM (diabetes mellitus): Qualified Code: E11.9 - Type 2 diabetes mellitus without complications Javier Harris Jr. Jan 04, 2017 12:52
[2017-01-04] MEDS: SENNOSIDES SYRUP 8.8 MG/5 ML CUP PEG SCH (16:00)
--- NOTE | 2017-01-04 18:33 | HHI.PR ---
Subjective Remarks opens eyes on o2 , o2 SAT 97% ON T PIECE NO DITRESS TRACH. [place] Objective Vital Signs Date Time Temp Pulse Resp B/P Pulse Ox O2 Delivery O2 Flow Rate FiO2 01/04/17 16:14 107 01/04/17 16:03 98.9 107 20 114/67 95 01/04/17 12:06 96.5 98 20 107/65 96 01/04/17 08:15 97 T-piece 28 01/04/17 08:15 97 T-piece 28 01/04/17 08:13 100.2 107 20 122/74 95 01/04/17 04:00 97.5 112 18 127/84 95 01/04/17 00:00 97.0 92 20 131/76 99 01/03/17 21:30 97 T-piece 28 01/03/17 21:30 97 T-piece 28 01/03/17 20:00 97 Trach Collar 6.00 28 01/03/17 20:00 97.4 104 20 116/65 97 01/03/17 20:00 102 I/O 01/03/17 01/03/17 01/03/17 01/04/17 01/04/17 01/04/17 07:00 15:00 23:00 07:00 15:00 23:00 Intake Total 1420 ml 700 ml Output Total 500 ml 1000 ml 875 ml Balance 920 ml -1000 ml -175 ml Tube Feeding 1020 ml Tube Irrigant 300 ml Other 400 ml 400 ml Output Urine Total 500 ml 1000 ml 875 ml # Bowel Movements 3 1 2 Procedures 01/02/16 PEG placement 01/02/16 tracheostomy 07/22/2016 Wide excision of sacral skin wound, biopsy of the cavity lining and debridement. PEG tube replacement 07/29/16 Objective Remarks GENERAL: SKIN: Warm and dry. HEAD: Atraumatic. Normocephalic. EYES: Pupils equal and round. No scleral icterus. No injection or drainage. ENT: No nasal bleeding or discharge. Mucous membranes pink and moist. NECK: Trachea midline. No JVD. TRACH. [place] CARDIOVASCULAR: Regular rate and rhythm. RESPIRATORY: No accessory muscle use. Clear to auscultation. Breath sounds equal bilaterally. GASTROINTESTINAL: Abdomen soft, non-tender, nondistended. Hepatic and splenic margins not palpable. MUSCULOSKELETAL: Extremities without clubbing, cyanosis, or edema. No obvious deformities. NEUROLOGICAL: Awake and alert. No obvious cranial nerve deficits. Motor grossly within normal limits. Five out of 5 muscle strength in the arms and legs. Normal speech. PSYCHIATRIC: Appropriate mood and affect; insight and judgment normal. Assessment and Plan Assessment and Plan impression respiratory failure CVA S/P TRACHEOSTOMY cxray NO ACUTE CHANGE PLAN O2 NEEDED PULM. TOILET Brandon Taylor MD Jan 04, 2017 18:33
[2017-01-04] MEDS: PARoxetine HCL SUSP 20 MG/10 ML UDC PEG SCH (18:38)
[2017-01-04] MEDS: HYOSCYAMINE 0.125 MG TAB G-TUBE PRN (21:14)
[2017-01-05] VITALS (9 sets, daily range): BP systolic 101–131; BP diastolic 60–85; PULSE 88–105; RESP 19–24; TEMP 95.4–99.5; O2SAT 94–98
[2017-01-05] MEDS: DILTIAZEM HCL 30 MG TAB PEG SCH ×2 (02:02→14:01)
[2017-01-05] MEDS: FREE WATER TUBE SCH ×5 (06:00→22:19)
[2017-01-05] MEDS: ACETIC ACID 0.25% SOLN 1000 ML IRR BTL IRRIGATION SCH ×3 (06:11→22:39)
[2017-01-05] MEDS: HEPARIN SODIUM - SQ 10,000 UNITS/ML VIAL SQ SCH ×3 (06:11→21:32)
[2017-01-05] MEDS: HYOSCYAMINE 0.125 MG TAB G-TUBE PRN ×3 (06:11→21:34)
[2017-01-05] MEDS: INSULIN ASPART SUPPLEMENTAL SCALE SQ SCH (07:13)
[2017-01-05] MEDS: MAGNESIUM HYDROXIDE SUSP 30 ML CUP PEG SCH (07:58)
[2017-01-05] MEDS: LACTULOSE SYRUP 20 GM/30 ML CUP PEG SCH (07:58)
[2017-01-05] MEDS: POTASSIUM CHLORIDE 25 MEQ EFFERVESCENT TAB TUBE SCH (07:58)
[2017-01-05] MEDS: BACITRACIN TOP OINT 15 GM TUBE TOP SCH ×2 (07:58→21:31)
[2017-01-05] MEDS: levETIRAcetam 500 MG/5 ML UDC TUBE SCH ×2 (07:58→21:32)
[2017-01-05] MEDS: METOPROLOL TARTRATE 25 MG TAB PEG SCH ×2 (07:58→21:30)
[2017-01-05] MEDS: ASPIRIN 325 MG TAB TUBE SCH (07:58)
[2017-01-05] MEDS: NYSTATIN 100,000 U/GM PWD 15 GM BTL TOPICAL SCH ×2 (07:58→21:31)
[2017-01-05] MEDS: SODIUM CHLORIDE 0.65% NASAL SPRAY 45 ML BTL NASAL SCH ×2 (07:59→21:30)
[2017-01-05] MEDS: ARTIFICIAL TEARS OPTH SOLN 15 ML BTL EACH EYE SCH ×2 (07:59→21:30)
[2017-01-05 09:20] LABS: MEAN CELL VOLUME 72.1 FL (80.0-100.0); MEAN CORPUSCULAR HEMOGLOBIN 22.3 PG (27.0-34.0); MEAN CORPUSCULAR HGB CONC 30.9 % (32.0-36.0); PLATELET COUNT 264 TH/MM3 (150-450); RED BLOOD COUNT 4.43 MIL/MM3 (4.50-5.90); RED CELL DISTRIBUTION WIDTH 19.9 % (11.6-17.2); REVIEW FLAG FINAL; WHITE BLOOD COUNT 5.3 TH/MM3 (4.0-11.0)
[2017-01-05 09:52] LABS: BICARBONATE 21.6 MEQ/L (21.0-32.0); POTASSIUM 3.9 MEQ/L (3.5-5.1)
[2017-01-05] MEDS: PANTOPRAZOLE SODIUM 40 MG VIAL IV PUSH SCH ×2 (10:35→21:33)
[2017-01-05] MEDS: SODIUM CHLOR 0.9% 1000 ML INJ 1,000 ML IV SCH (10:38)
--- NOTE | 2017-01-05 11:37 | HHI.PR ---
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 Patient continues to be nonverbal, and is not involved in his care. Patient seen and examined today. Patient lying in bed in no apparent distress.intermittent eye opening at start of session, closed towards end of visit. Mother and ex- at bed side no questions this morning. Pt's RN (Alea) denied acute changes over night. RN reported increased red tinged sputum this morning and attributed it to increased suctioning secondary to mucus production. VSS Objective Vitals Vital Signs Date Time Temp Pulse Resp B/P Pulse Ox O2 Delivery O2 Flow Rate FiO2 01/05/17 08:25 98 T-piece 28 01/05/17 08:25 98 T-piece 28 01/05/17 08:00 99.0 105 22 118/73 97 01/05/17 04:33 98.3 95 19 105/70 97 01/05/17 00:22 98.7 101 19 112/71 94 01/04/17 22:00 95 Trach Collar 6.00 28 01/04/17 21:01 97 T-piece 6.00 28 01/04/17 20:13 99.2 100 19 108/67 96 01/04/17 20:00 102 01/04/17 16:14 107 01/04/17 16:03 98.9 107 20 114/67 95 01/04/17 12:06 96.5 98 20 107/65 96 I/O 01/04/17 01/04/17 01/04/17 01/05/17 01/05/17 01/05/17 06:59 14:59 22:59 06:59 14:59 22:59 Intake Total 700 ml 500 ml 1568 ml Output Total 1000 ml 875 ml 2050 ml Balance -1000 ml -175 ml 500 ml -2050 ml 1568 ml IV Total 500 ml 478 ml Tube Feeding 840 ml Tube Irrigant 300 ml 50 ml Other 400 ml 200 ml Output Urine Total 1000 ml 875 ml 2050 ml # Bowel Movements 2 1 Result Diagram: 01/05/17 0835 01/05/17 0835 Imaging Last Impressions Chest X-Ray 01/01/17 0000 Signed Impressions: Service Date/Time: Sunday, January 01, 2017 16:32 - CONCLUSION: 1. Tracheostomy is in satisfactory position. Moisse Ramírez MD Tube Change 12/31/16 0000 Signed Impressions: Service Date/Time: Saturday, December 31, 2016 16:35 - CONCLUSION: Uncomplicated gastrojejunostomy tube exchange as above. Moises Ramírez MD Tube Check 12/04/16 0000 Signed Impressions: Service Date/Time: Sunday, December 04, 2016 17:58 - CONCLUSION: Uncomplicated tube injection as above. the tube is in good position and functions normally. Moises Ramírez MD Abdomen X-Ray 08/31/16 0000 Signed Impressions: Service Date/Time: Wednesday, August 31, 2016 16:36 - CONCLUSION: 1. No acute findings. Mild constipation. Durga Dotson MD Abdomen/Pelvis CT 04/12/16 0000 Signed Impressions: Service Date/Time: Tuesday, April 12, 2016 20:52 - CONCLUSION: 1. 6.4 cm necrotic mass or abscess in the soft tissues posteriorly just below the sacrum associated with some bony destructive change of the lower most sacrum and coccyx with inflammatory changes extending into the ischiorectal fossa and into the presacral retroperitoneum predominantly on the left side. There is associated fairly marked mural thickening of the anal verge and rectum. 2. There is gastrostomy and Arevalo catheter present. Stable abdominal aortic aneurysm. Durga Dotson MD Head Magnetic Resonance Angiography 03/05/16 0000 Signed Impressions: Service Date/Time: Saturday, March 05, 2016 09:26 - CONCLUSION: Persistent high-grade subtotal occlusive stenotic lesions in the distal right vertebral artery and proximal basilar artery with significant improvement in flow and recanalization following initial presentation of thrombosis. Stable interstitial circulation without significant stenosis. 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 There is decreasing restricted diffusion and increasing loss of volume characteristic of a subacute to chronic infarct. No evidence of acute infarct, acute hemorrhage mass or edema. Ernesto Kulkarni MD Head CT 01/16/16 0000 Signed Impressions: Service Date/Time: Saturday, January 16, 2016 10:51 - CONCLUSION: No extensive low density in the brainstem colin more prominent in the right the left extending into the right middle cerebellar peduncle consistent with brainstem infarct nonhemorrhagic acute Wellington West MD Neck Magnetic Resonance Angiography 12/22/15 1445 Signed Impressions: Service Date/Time: Tuesday, December 22, 2015 09:22 - CONCLUSION: Variant origin of the left vertebral artery from the aortic arch. No evidence of carotid stenosis. Glen Zamora MD Head/Brain Mag Res Venography 12/22/15 0000 Signed Impressions: Service Date/Time: Tuesday, December 22, 2015 09:22 - CONCLUSION: Normal MRV. Jonel Jones Jr., MD Objective Remarks GENERAL: Pt encountered laying a bed, non-verbal, not tracking people in room. Not in acute distress. Pt not following commands. Intermittent eye opening at start of visit, and mostly closed at the end of visit. SKIN: Warm and dry. tattoo noted on right forearm. No rash of right upper extremity appreciated. HEAD: Normocephalic. EYES: Non-icteric without injection or drainage. Pt noted to have eyes open for much of clinical visit. NECK: Supple, trachea midline. T-tube in place. Red tinged sputum noted. CARDIOVASCULAR: Regular rate and rhythm without murmurs, gallops, or rubs. RESPIRATORY: Breath sounds equal bilaterally. No accessory muscle use. Trach tube in place. Bedside monitor indicated oxygen saturation was 95%. GASTROINTESTINAL: Abdomen soft, non-tender, nondistended. GJ tube noted, area around insertion was dry and seemingly without leakage. MUSCULOSKELETAL: No cyanosis, or edema. Bilateral lower leg SCD's present. PSYCHIATRIC: Pt non-verbal, he appeared calm and not in distress. Procedures 01/02/16 PEG placement 01/02/16 tracheostomy 07/22/2016 Wide excision of sacral skin wound, biopsy of the cavity lining and debridement. PEG tube replacement 07/29/16 VAC changes- M-W-F 4/5- GJ tube replacement Medications and IVs Current Medications Medications (Trade) Dose Ordered Sig/Junior Route Start Time Stop Time Status Last Admin (NS Flush) 2 ml UNSCH PRN IVF 12/21/15 06:00 09/28/16 21:18 (Keppra Liq) 500 mg Q12HR TUBE 12/27/15 21:00 01/05/17 07:58 (Tylenol 650 Mg/ 20 ml Liq) 650 mg Q6H PRN TUBE 12/30/15 15:15 01/02/17 12:18 (Mycostatin Powder) 1 applic Q12HR TOPICAL 01/08/16 21:00 01/05/17 07:58 (Pill Splitter) 1 ea UNSCH PRN OTHER 01/14/16 08:30 (Acetic Acid 0.25% Irr Btl) 10 ml Q8HR IRRIGATION 02/05/16 16:00 01/05/17 06:11 (Ativan Inj) 0.5 mg Q4H PRN IV PUSH 03/07/16 23:00 (Paxil Liq) 20 mg DAILY@1900 PEG 03/12/16 19:00 01/04/17 18:38 (Levemir Inj) 35 units HS SQ 03/24/16 21:00 Hold 11/15/16 22:06 (Levsin) 0.25 mg Q4H PRN G-TUBE 04/11/16 10:30 01/05/17 06:11 (Zofran Inj) 4 mg Q6HR PRN IV PUSH 04/14/16 19:45 08/10/16 10:16 (D50w (Vial) Inj) 25 ml UNSCH PRN IV 04/20/16 12:00 (Glucagon Inj) 1 mg UNSCH PRN IM/SQ 04/20/16 12:00 (K-Lyte Cl Eff) 25 meq DAILY TUBE 05/28/16 09:00 01/05/17 07:58 (Aspirin) 325 mg DAILY TUBE 05/27/16 11:40 01/05/17 07:58 (Heparin Inj) 5,000 units Q8HR SQ 06/11/16 14:00 01/05/17 06:11 (Baciguent Oint) 1 applic BID TOP 07/20/16 10:00 01/05/17 07:58 (Protonix Inj) 40 mg Q12H IV PUSH 07/30/16 10:15 01/05/17 10:35 (George Angel Arnett) 1 spray BID NASAL 08/01/16 21:00 01/05/17 07:59 (Tears Naturale Opth Soln) 1 drop BID EACH EYE 09/05/16 21:00 01/05/17 07:59 (Morphine Inj) 1 mg Q24H PRN IV PUSH 09/17/16 14:30 10/22/16 02:00 (Fleets Enema (Adult)) 133 ml UNSCH PRN ME 09/25/16 16:00 (Dulcolax Supp) 10 mg DAILY PRN RECTAL 09/26/16 15:30 12/08/16 09:17 Diltiazem HCl 30 mg 30 mg Q12H PEG 11/20/16 01:00 01/05/17 02:02 (NS 1000 ml Inj) 1,000 ml @ 30 mls/hr Q24H IV 11/28/16 19:45 01/05/17 10:38 (Tylenol - Codeine 120-12 Liq) 5 ml Q4H PRN G-TUBE 12/27/16 15:30 (Flexeril) 5 mg HS PRN PEG 12/27/16 15:30 (Lactulose Liq) 30 ml DAILY PEG 12/28/16 09:00 01/04/17 07:50 (Imodium Liq) 2 mg Q6H PRN PEG 12/27/16 15:30 (Milk Of Magnesia Liq) 30 ml DAILY PRN PEG 12/27/16 15:30 (Milk Of Magnesia Liq) 30 ml DAILY PEG 12/28/16 09:00 01/04/17 07:50 (Lopressor) 25 mg BID PEG 12/27/16 21:00 01/05/17 07:58 (Senna Liq) 8.8 mg DAILY@1600 PEG 12/27/16 16:00 01/01/17 16:45 (Lactulose Liq) 30 ml DAILY PRN PEG 12/27/16 15:30 (Free Water) 200 ml Q6HR TUBE 01/01/17 12:00 01/05/17 06:00 Urinary Catheter: Yes Date of Insertion: Oct 12, 2016 Vascular Central Line Catheter: No A/P Problem List: (1) CVA (cerebral vascular accident) ICD Code: I63.9 Status: Acute (2) A-fib ICD Code: I48.91 Status: Chronic (3) DM (diabetes mellitus) ICD Code: E11.9 Status: Chronic Assessment and Plan 61 year-old male presented with: CVA (cerebral vascular accident): 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 Nonverbal, paraplegia, global apraxia -Continue Keppra, Palliative care following. Monitor Keppra level periodically. -Seizure precautions -Supportive care, long-term needed for chronic and profound neurologic deficits. Recovery is not expected to occur. -10/02 care will be needed, so home health and hospice are not good options for him Chronic Respiratory failure, secondary to CVA -Tracheostomy in place -Continue Levsin as needed for secretions -Pulmonology following -As needed oxygen -Xopenex nebs as needed -Shannon-cat called on 01/01/17 due to pt decannulating himself with a cough. CXR obtained and indicated new T- Tube is satisfactorily placed. No residual issues noted. GI/Nutrition. -Cont tube feedings -PEG tube replaced 12/31/16. -Free water increased to 200 ml q 6 Hrs. -Diarrhea noted on 01/04-01/05 Depression: Continue Paxil. A-fib, chronic -continue Lopressor, Cardizem, ASA -Monitor tele Coccyx pressure ulcer, colostomy declined by family (inability to divert feces in this chronic setting increases risks with ulcer and for recurrence of ulcers) -repositioning Q2H -Cont. wound care recommendations -Pain management with PO Ephraim -Last wound care note was 12/12/16. Last three visits no change in treatment regimen warranted. Diabetes mellitus -Accu checks with SSI -Patient is on tube feeds, use diabetic tube feeds -Continue Levemir Chronic Arevalo -monitor for UTI symptoms -Arevalo changed 01/02/17 to be changed every 30 days. DVT prophylaxis: Heparin Discussed with pt's mother and ex- (at bedside), CHAPITO Cosby, and Dr. Pruitt. Discharge Planning Pending placement. Will need long-term SNF placement, that will accept tracheostomy. As on 12/27/16 no accepting facility as of yet. Problem Qualifiers (1) CVA (cerebral vascular accident): (2) DM (diabetes mellitus): Qualified Code: E11.9 - Type 2 diabetes mellitus without complications Javier Harris Jr. Jan 05, 2017 11:37
--- NOTE | 2017-01-05 14:23 | HHI.PR ---
Subjective Remarks opens eyes on o2 , o2 SAT 97% ON T PIECE NO DITRESS TRACH. [place] Objective Vital Signs Date Time Temp Pulse Resp B/P Pulse Ox O2 Delivery O2 Flow Rate FiO2 01/05/17 12:00 99.5 91 22 107/64 96 01/05/17 11:50 93 01/05/17 08:25 98 T-piece 28 01/05/17 08:25 98 T-piece 28 01/05/17 08:00 99.0 105 22 118/73 97 01/05/17 04:33 98.3 95 19 105/70 97 01/05/17 00:22 98.7 101 19 112/71 94 01/04/17 22:00 95 Trach Collar 6.00 28 01/04/17 21:01 97 T-piece 6.00 28 01/04/17 20:13 99.2 100 19 108/67 96 01/04/17 20:00 102 01/04/17 16:14 107 01/04/17 16:03 98.9 107 20 114/67 95 I/O 01/04/17 01/04/17 01/04/17 01/05/17 01/05/17 01/05/17 07:00 15:00 23:00 07:00 15:00 23:00 Intake Total 700 ml 500 ml 1818 ml Output Total 1000 ml 875 ml 2050 ml Balance -1000 ml -175 ml 500 ml -2050 ml 1818 ml IV Total 500 ml 478 ml Tube Feeding 840 ml Tube Irrigant 300 ml 100 ml Other 400 ml 400 ml Output Urine Total 1000 ml 875 ml 2050 ml # Bowel Movements 2 1 Result Diagram: 01/05/17 0835 01/05/17 0835 Procedures 01/02/16 PEG placement 01/02/16 tracheostomy 07/22/2016 Wide excision of sacral skin wound, biopsy of the cavity lining and debridement. PEG tube replacement 07/29/16 Objective Remarks GENERAL: SKIN: Warm and dry. HEAD: Atraumatic. Normocephalic. EYES: Pupils equal and round. No scleral icterus. No injection or drainage. ENT: No nasal bleeding or discharge. Mucous membranes pink and moist. NECK: Trachea midline. No JVD. TRACH. [place] CARDIOVASCULAR: Regular rate and rhythm. RESPIRATORY: No accessory muscle use. Clear to auscultation. Breath sounds equal bilaterally. GASTROINTESTINAL: Abdomen soft, non-tender, nondistended. Hepatic and splenic margins not palpable. MUSCULOSKELETAL: Extremities without clubbing, cyanosis, or edema. No obvious deformities. NEUROLOGICAL: Awake and alert. No obvious cranial nerve deficits. Motor grossly within normal limits. Five out of 5 muscle strength in the arms and legs. Normal speech. PSYCHIATRIC: Appropriate mood and affect; insight and judgment normal. Assessment and Plan Assessment and Plan impression respiratory failure CVA S/P TRACHEOSTOMY cxray NO ACUTE CHANGE PLAN O2 NEEDED PULM. TOILET Brandon Taylor MD Jan 05, 2017 14:23
[2017-01-05] MEDS: SENNOSIDES SYRUP 8.8 MG/5 ML CUP PEG SCH (16:06)
[2017-01-05] MEDS: PARoxetine HCL SUSP 20 MG/10 ML UDC PEG SCH (18:00)
[2017-01-06] VITALS (8 sets, daily range): BP systolic 95–118; BP diastolic 63–74; PULSE 84–101; RESP 18–24; TEMP 95.9–97.1; O2SAT 95–99
[2017-01-06] MEDS: DILTIAZEM HCL 30 MG TAB PEG SCH ×2 (01:00→12:05)
[2017-01-06] MEDS: HYOSCYAMINE 0.125 MG TAB G-TUBE PRN ×2 (05:33→20:24)
[2017-01-06] MEDS: HEPARIN SODIUM - SQ 10,000 UNITS/ML VIAL SQ SCH ×3 (05:33→20:24)
[2017-01-06] MEDS: FREE WATER TUBE SCH ×3 (05:34→16:53)
[2017-01-06] MEDS: ACETIC ACID 0.25% SOLN 1000 ML IRR BTL IRRIGATION SCH ×3 (05:34→20:38)
[2017-01-06] MEDS: INSULIN ASPART SUPPLEMENTAL SCALE SQ SCH (06:20)
[2017-01-06] MEDS: BACITRACIN TOP OINT 15 GM TUBE TOP SCH ×2 (09:00→20:38)
[2017-01-06] MEDS: SODIUM CHLORIDE 0.65% NASAL SPRAY 45 ML BTL NASAL SCH ×2 (09:00→20:38)
[2017-01-06] MEDS: MAGNESIUM HYDROXIDE SUSP 30 ML CUP PEG SCH (09:00)
[2017-01-06] MEDS: NYSTATIN 100,000 U/GM PWD 15 GM BTL TOPICAL SCH ×2 (09:00→20:38)
[2017-01-06] MEDS: ARTIFICIAL TEARS OPTH SOLN 15 ML BTL EACH EYE SCH ×2 (09:00→20:38)
[2017-01-06] MEDS: METOPROLOL TARTRATE 25 MG TAB PEG SCH ×3 (09:00→20:23)
[2017-01-06] MEDS: LACTULOSE SYRUP 20 GM/30 ML CUP PEG SCH (09:00)
[2017-01-06] MEDS: POTASSIUM CHLORIDE 25 MEQ EFFERVESCENT TAB TUBE SCH (09:14)
[2017-01-06] MEDS: ASPIRIN 325 MG TAB TUBE SCH (09:15)
[2017-01-06] MEDS: PANTOPRAZOLE SODIUM 40 MG VIAL IV PUSH SCH ×2 (09:15→20:24)
[2017-01-06] MEDS: levETIRAcetam 500 MG/5 ML UDC TUBE SCH ×2 (09:16→20:24)
[2017-01-06 10:10] LABS: BICARBONATE 23.2 MEQ/L (21.0-32.0); POTASSIUM 3.9 MEQ/L (3.5-5.1)
[2017-01-06] MEDS: SENNOSIDES SYRUP 8.8 MG/5 ML CUP PEG SCH (15:57)
--- NOTE | 2017-01-06 16:05 | HHI.PR ---
Subjective Remarks opens eyes on o2 , o2 SAT 97% ON T PIECE NO DITRESS TRACH. [place] Objective Vital Signs Date Time Temp Pulse Resp B/P Pulse Ox O2 Delivery O2 Flow Rate FiO2 01/06/17 12:20 97.1 90 18 118/74 99 01/06/17 09:43 92 01/06/17 09:00 96 T-piece 28 01/06/17 09:00 96 T-piece 28 01/06/17 08:21 97.0 101 18 104/70 97 01/06/17 04:00 96.3 93 24 95/67 95 01/06/17 00:00 95.9 84 24 96/63 97 01/05/17 21:00 89 01/05/17 20:00 95.4 94 24 131/85 96 01/05/17 16:58 98 Trach Collar 6.00 28 I/O 01/05/17 01/05/17 01/05/17 01/06/17 01/06/17 01/06/17 07:00 15:00 23:00 07:00 15:00 23:00 Intake Total 1818 ml 851 ml Output Total 2050 ml 650 ml 1000 ml Balance -2050 ml 1168 ml 851 ml -1000 ml IV Total 478 ml Tube Feeding 840 ml 541 ml Tube Irrigant 100 ml 110 ml Other 400 ml 200 ml Output Urine Total 2050 ml 650 ml 1000 ml # Bowel Movements 1 0 Result Diagram: 01/05/17 0835 01/06/17 0841 Procedures 01/02/16 PEG placement 01/02/16 tracheostomy 07/22/2016 Wide excision of sacral skin wound, biopsy of the cavity lining and debridement. PEG tube replacement 07/29/16 Objective Remarks GENERAL: SKIN: Warm and dry. HEAD: Atraumatic. Normocephalic. EYES: Pupils equal and round. No scleral icterus. No injection or drainage. ENT: No nasal bleeding or discharge. Mucous membranes pink and moist. NECK: Trachea midline. No JVD. TRACH. [place] CARDIOVASCULAR: Regular rate and rhythm. RESPIRATORY: No accessory muscle use. Clear to auscultation. Breath sounds equal bilaterally. GASTROINTESTINAL: Abdomen soft, non-tender, nondistended. Hepatic and splenic margins not palpable. MUSCULOSKELETAL: Extremities without clubbing, cyanosis, or edema. No obvious deformities. NEUROLOGICAL: Awake and alert. No obvious cranial nerve deficits. Motor grossly within normal limits. Five out of 5 muscle strength in the arms and legs. Normal speech. PSYCHIATRIC: Appropriate mood and affect; insight and judgment normal. Assessment and Plan Assessment and Plan impression respiratory failure CVA S/P TRACHEOSTOMY cxray NO ACUTE CHANGE PLAN O2 NEEDED PULM. TOILET Brandon Taylor MD Jan 06, 2017 16:05
--- NOTE | 2017-01-06 16:07 | HHI.PR ---
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 Patient remains aphasic. Does not follow any commands. Eyes open with glasses on. Mother at bedside. No acute concerns. Objective Vitals Vital Signs Date Time Temp Pulse Resp B/P Pulse Ox O2 Delivery O2 Flow Rate FiO2 01/06/17 12:20 97.1 90 18 118/74 99 01/06/17 09:43 92 01/06/17 09:00 96 T-piece 28 01/06/17 09:00 96 T-piece 28 01/06/17 08:21 97.0 101 18 104/70 97 01/06/17 04:00 96.3 93 24 95/67 95 01/06/17 00:00 95.9 84 24 96/63 97 01/05/17 21:00 89 01/05/17 20:00 95.4 94 24 131/85 96 01/05/17 16:58 98 Trach Collar 6.00 28 01/05/17 16:00 97.6 88 24 101/60 95 I/O 01/05/17 01/05/17 01/05/17 01/06/17 01/06/17 01/06/17 07:00 15:00 23:00 07:00 15:00 23:00 Intake Total 1818 ml 851 ml Output Total 2050 ml 650 ml 1000 ml Balance -2050 ml 1168 ml 851 ml -1000 ml IV Total 478 ml Tube Feeding 840 ml 541 ml Tube Irrigant 100 ml 110 ml Other 400 ml 200 ml Output Urine Total 2050 ml 650 ml 1000 ml # Bowel Movements 1 0 Result Diagram: 01/05/17 0835 01/06/17 0841 Objective Remarks GENERAL: Tracks with eyes. No verbal communication. SKIN: Warm and dry. HEAD: Normocephalic. EYES: No scleral icterus. No injection or drainage. NECK: Supple, trachea midline. No JVD or lymphadenopathy. CARDIOVASCULAR: Regular rate and rhythm without murmurs, gallops, or rubs. RESPIRATORY: Coarse breath sounds. No accessory muscle use. GASTROINTESTINAL: Abdomen soft, non-tender, nondistended. MUSCULOSKELETAL: No cyanosis, or edema. BACK: Nontender without obvious deformity. No CVA tenderness. Procedures 01/02/16 PEG placement 01/02/16 tracheostomy 07/22/2016 Wide excision of sacral skin wound, biopsy of the cavity lining and debridement. PEG tube replacement 07/29/16 VAC changes- M-W-F 10/23- GJ tube replacement Date of Insertion: Oct 12, 2016 A/P Problem List: (1) CVA (cerebral vascular accident) ICD Code: I63.9 Status: Acute (2) A-fib ICD Code: I48.91 Status: Chronic (3) DM (diabetes mellitus) ICD Code: E11.9 Status: Chronic Assessment and Plan 60 year-old male with past medical history of paroxysmal A. fib, hypertension, stage III non-Hodgkin's lymphoma status post chemotherapy who came into the hospital with altered mental status. 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 Intermittently tracks with eyes. Mother at bedside. - Continue Keppra for seizure prophylaxis. - PT/OT signed off as patient is unable to participate. - No placement available. Appreciate case management assistance. Last CM note indicates continued difficult placement and has medicaid with no accepting facility. Rehab Medicine (Dr. Pickens) following. Chronic respiratory failure secondary to CVA - Status post tracheostomy. Continue pulmonary toilet and bronchodilators as needed. Continue trach care, suctioning. Levsin as needed. - Pulmonary currently following, appreciate assistance. Atrial fibrillation, controlled - Continue rate control with Cardizem and metoprolol. - Echocardiogram in November 2015 shows preserved ejection fraction. Coumadin discontinued secondary to bleeding. - Continue aspirin and prophylactic heparin dose. Hyponatremia - Last NA checked 12/20 135. [facility] to 150ml q8hr. NA 138. History of non-Hodgkin's lymphoma - Status post brain biopsy on December 13 by neurosurgery. Pathology consistent with acute infarct without evidence of lymphoma. Oncology has signed off. Diabetes mellitus Type 2 - Hemoglobin A1c is 7. Monitor Accu-Cheks and cover with sliding scale insulin. Overall blood sugar continues well controlled. Decubitus ulcer stage IV - Continue wound care, twice-daily dressing changes. Wound care recommendations last updated 12/12/16. Continue pressure relief measures including turning and positioning. Patient's family has declined a diverting colostomy. Previous Wound culture growing Klebsiella and Enterococcus Faecalis. Previously on Augmentin. Status post wide excision of sacral skin and biopsy of the cavity lining with debridement on 07/22/16. - Continue to monitor for pain. Gastric ulcer, reflux esophagitis - EGD on 07/30/16 showed gastric ulcers. Continue PPI. H&H stable. UTI pseudomonas aeruginosa treated with abx - Resolved. Repeat Ucx 08/28/16 negative. Patient seen by ID (Dr. Alvarez) on 11/28/16. Constipation: - Notes of 11/21/16 indicated pt had diarrhea, C. Diff negative. Imodium PRN. - Last BM 12/26. Severe malnutrition - Dietary last recommendations on 12/17/16. Continue Glucerna 1.0 @ 85 ml/hr to provide 2040 kcals, 85 gms protein and 1740 mls of free water. Water flushes of 30 mls before and after medication administration should be given. Alternate Code. DVT prophylaxis: SCDs. Heparin 5,000 units sq Q8hr. Problem Qualifiers (1) CVA (cerebral vascular accident): (2) DM (diabetes mellitus): Qualified Code: E11.9 - Type 2 diabetes mellitus without complications Birdie Leal DO Jan 06, 2017 4:07 pm
[2017-01-06] MEDS: PARoxetine HCL SUSP 20 MG/10 ML UDC PEG SCH (17:51)
[2017-01-06] MEDS: SODIUM CHLOR 0.9% 1000 ML INJ 1,000 ML IV SCH (18:14)
[2017-01-07] VITALS (10 sets, daily range): BP systolic 109–126; BP diastolic 69–80; PULSE 86–93; RESP 19–20; TEMP 96.2–97.3; O2SAT 94–98
[2017-01-07] MEDS: DILTIAZEM HCL 30 MG TAB PEG SCH ×2 (00:58→14:05)
[2017-01-07] MEDS: FREE WATER TUBE SCH ×4 (00:58→18:00)
[2017-01-07] MEDS: HEPARIN SODIUM - SQ 10,000 UNITS/ML VIAL SQ SCH ×3 (05:10→21:03)
[2017-01-07] MEDS: INSULIN ASPART SUPPLEMENTAL SCALE SQ SCH (05:12)
[2017-01-07] MEDS: ACETIC ACID 0.25% SOLN 1000 ML IRR BTL IRRIGATION SCH ×3 (05:12→21:08)
[2017-01-07] MEDS: LACTULOSE SYRUP 20 GM/30 ML CUP PEG SCH (08:21)
[2017-01-07] MEDS: levETIRAcetam 500 MG/5 ML UDC TUBE SCH ×2 (08:21→21:02)
[2017-01-07] MEDS: POTASSIUM CHLORIDE 25 MEQ EFFERVESCENT TAB TUBE SCH (08:21)
[2017-01-07] MEDS: ASPIRIN 325 MG TAB TUBE SCH (08:21)
[2017-01-07] MEDS: METOPROLOL TARTRATE 25 MG TAB PEG SCH ×2 (08:21→21:03)
[2017-01-07] MEDS: NYSTATIN 100,000 U/GM PWD 15 GM BTL TOPICAL SCH ×2 (08:23→21:05)
[2017-01-07] MEDS: BACITRACIN TOP OINT 15 GM TUBE TOP SCH ×2 (08:23→21:08)
[2017-01-07] MEDS: SODIUM CHLORIDE 0.65% NASAL SPRAY 45 ML BTL NASAL SCH ×2 (08:24→21:05)
[2017-01-07] MEDS: ARTIFICIAL TEARS OPTH SOLN 15 ML BTL EACH EYE SCH ×2 (08:24→21:04)
[2017-01-07] MEDS: MAGNESIUM HYDROXIDE SUSP 30 ML CUP PEG SCH (09:00)
--- NOTE | 2017-01-07 09:20 | HHI.PR ---
Subjective Remarks Follow up visit CVA to brain stem and bilateral occipital lobe infarcts. Patient seen and examined, mother at bedside. Spoke to RN, no acute events overnight. Continued aphasia noted, does not follow commands. Tracks with eyes, with occasional smile. Tolerating TF. Positive BM. Objective Vitals Vital Signs Date Time Temp Pulse Resp B/P Pulse Ox O2 Delivery O2 Flow Rate FiO2 01/07/17 08:23 97.1 93 20 116/75 94 01/07/17 08:14 91 01/07/17 05:21 96.2 89 19 121/80 97 01/07/17 00:17 97.3 91 20 116/71 97 01/06/17 20:12 96.3 94 20 113/68 96 01/06/17 16:22 96.2 91 18 118/66 98 01/06/17 12:20 97.1 90 18 118/74 99 01/06/17 09:43 92 I/O 01/06/17 01/06/17 01/06/17 01/07/17 01/07/17 01/07/17 07:00 15:00 23:00 07:00 15:00 23:00 Output Total 1000 ml 1450 ml 1600 ml Balance -1000 ml -1450 ml -1600 ml Output Urine Total 1000 ml 1450 ml 1600 ml # Bowel Movements 1 2 Result Diagram: 01/05/17 0835 01/06/17 0841 Imaging Last Impressions Chest X-Ray 01/01/17 0000 Signed Impressions: Service Date/Time: Sunday, January 01, 2017 16:32 - CONCLUSION: 1. Tracheostomy is in satisfactory position. Moises Ramírez MD Tube Change 12/31/16 0000 Signed Impressions: Service Date/Time: Saturday, December 31, 2016 16:35 - CONCLUSION: Uncomplicated gastrojejunostomy tube exchange as above. Moises Ramírez MD Tube Check 12/04/16 0000 Signed Impressions: Service Date/Time: Sunday, December 04, 2016 17:58 - CONCLUSION: Uncomplicated tube injection as above. the tube is in good position and functions normally. Moises Ramírez MD Abdomen X-Ray 08/31/16 0000 Signed Impressions: Service Date/Time: Wednesday, August 31, 2016 16:36 - CONCLUSION: 1. No acute findings. Mild constipation. Durga Dotson MD Abdomen/Pelvis CT 04/12/16 0000 Signed Impressions: Service Date/Time: Tuesday, April 12, 2016 20:52 - CONCLUSION: 1. 6.4 cm necrotic mass or abscess in the soft tissues posteriorly just below the sacrum associated with some bony destructive change of the lower most sacrum and coccyx with inflammatory changes extending into the ischiorectal fossa and into the presacral retroperitoneum predominantly on the left side. There is associated fairly marked mural thickening of the anal verge and rectum. 2. There is gastrostomy and Arevalo catheter present. Stable abdominal aortic aneurysm. Durga Dotson MD Head Magnetic Resonance Angiography 03/05/16 0000 Signed Impressions: Service Date/Time: Saturday, March 05, 2016 09:26 - CONCLUSION: Persistent high-grade subtotal occlusive stenotic lesions in the distal right vertebral artery and proximal basilar artery with significant improvement in flow and recanalization following initial presentation of thrombosis. Stable interstitial circulation without significant stenosis. 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 There is decreasing restricted diffusion and increasing loss of volume characteristic of a subacute to chronic infarct. No evidence of acute infarct, acute hemorrhage mass or edema. Ernesto Kulkarni MD Head CT 01/16/16 0000 Signed Impressions: Service Date/Time: Saturday, January 16, 2016 10:51 - CONCLUSION: No extensive low density in the brainstem colin more prominent in the right the left extending into the right middle cerebellar peduncle consistent with brainstem infarct nonhemorrhagic acute Wellington West MD Neck Magnetic Resonance Angiography 12/22/15 1445 Signed Impressions: Service Date/Time: Tuesday, December 22, 2015 09:22 - CONCLUSION: Variant origin of the left vertebral artery from the aortic arch. No evidence of carotid stenosis. Glen Zamora MD Head/Brain Mag Res Venography 12/22/15 0000 Signed Impressions: Service Date/Time: Tuesday, December 22, 2015 09:22 - CONCLUSION: Normal MRV. Jonel Jones Jr., MD Objective Remarks GENERAL: Non-verbal, tracking people in room, glasses worn. Not in acute distress. SKIN: Warm and dry. HEENT: Normocephalic. Pupils nonicteric. Nose without bleeding. Airway patent. NECK: Supple, trachea midline. T-tube in place. No JVD. CARDIOVASCULAR: Regular rate and rhythm. No murmur appreciated. RESPIRATORY: Breath sounds equal bilaterally. No accessory muscle use. Trach tube in place. Bedside monitor indicated oxygen saturation was 99%. GASTROINTESTINAL: Abdomen soft, non-tender, nondistended. GJ tube noted, area around insertion was dry, dressing intact. MUSCULOSKELETAL: No cyanosis, or edema. PSYCHIATRIC: Pt non-verbal, he appeared calm and not in distress. Procedures 01/02/16 PEG placement 01/02/16 tracheostomy 07/22/2016 Wide excision of sacral skin wound, biopsy of the cavity lining and debridement. PEG tube replacement 07/29/16 VAC changes- M-W-F 10/23- GJ tube replacement Urinary Catheter: Yes Date of Insertion: Jan 02, 2017 A/P Problem List: (1) CVA (cerebral vascular accident) ICD Code: I63.9 Status: Acute (2) A-fib ICD Code: I48.91 Status: Chronic (3) DM (diabetes mellitus) ICD Code: E11.9 Status: Chronic Assessment and Plan 60 year-old male with past medical history of paroxysmal A. fib, hypertension, stage III non-Hodgkin's lymphoma status post chemotherapy who came into the hospital with altered mental status. 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 Intermittently tracks with eyes. Mother at bedside. - Continue Keppra for seizure prophylaxis. - PT/OT signed off as patient is unable to participate. - No placement available. Appreciate case management assistance. Last CM note indicates continued difficult placement and has medicaid with no accepting facility. Rehab Medicine (Dr. Pickens) following. Chronic respiratory failure secondary to CVA - Status post tracheostomy. Continue pulmonary toilet and bronchodilators as needed. Continue trach care, suctioning. Levsin as needed. - Pulmonary currently following, appreciate assistance. Atrial fibrillation, controlled - Continue rate control with Cardizem and metoprolol. - Echocardiogram in November 2015 shows preserved ejection fraction. Coumadin discontinued secondary to bleeding. - Continue aspirin and prophylactic heparin dose. Hyponatremia - Last NA checked 133 01/06. FWF to 150ml q8hr. History of non-Hodgkin's lymphoma - Status post brain biopsy on December 13 by neurosurgery. Pathology consistent with acute infarct without evidence of lymphoma. Oncology has signed off. Diabetes mellitus Type 2 - Hemoglobin A1c is 7. Monitor Accu-Cheks and cover with sliding scale insulin. Overall blood sugar continues well controlled. Decubitus ulcer stage IV - Continue wound care, twice-daily dressing changes. Wound care recommendations last updated 12/12/16. Continue pressure relief measures including turning and positioning. Patient's family has declined a diverting colostomy. Previous Wound culture growing Klebsiella and Enterococcus Faecalis. Previously on Augmentin. Status post wide excision of sacral skin and biopsy of the cavity lining with debridement on 07/22/16. - Continue to monitor for pain. Gastric ulcer, reflux esophagitis - EGD on 07/30/16 showed gastric ulcers. Continue PPI. H&H stable. UTI pseudomonas aeruginosa treated with abx, resolved. Severe malnutrition - Dietary last recommendations on 12/17/16. Continue Glucerna 1.0 @ 85 ml/hr to provide 2040 kcals, 85 gms protein and 1740 mls of free water. Water flushes of 30 mls before and after medication administration should be given. DVT prophylaxis: SCDs/ Heparin 5,000 units sq Q8hr. Alternate code. Discussed with RN, mother and Dr. Leal. Discharge Planning Difficult placement. Last CM note 12/25/16 CM spoke with Jolene at [facility] usp beds - Jolene stated may be able to reach decision perhaps later in week, stated "not denied but not accepted either" at this time . Jolene to call CM with a decision later in week. CM also gave referrals to [facility] and [facility] who have usp beds - efaxed info to them and CM waiting for a response. Gave referral to [facility] who has dedicated intermodal truck driver beds and provided/gave access through the [facility] portal per their request - CM spoke with Chelsey there. CM also called [facility], [facility], and [facility] - none have usp beds. Pedro URIARTE Problem Qualifiers (1) CVA (cerebral vascular accident): (2) DM (diabetes mellitus): Qualified Code: E11.9 - Type 2 diabetes mellitus without complications Haley Seymour Jan 07, 2017 09:19
[2017-01-07] MEDS: PANTOPRAZOLE SODIUM 40 MG VIAL IV PUSH SCH ×2 (10:11→21:03)
[2017-01-07] MEDS: SENNOSIDES SYRUP 8.8 MG/5 ML CUP PEG SCH (16:06)
--- NOTE | 2017-01-07 16:42 | HHI.PR ---
Subjective Remarks opens eyes on o2 , o2 SAT 97% ON T PIECE NO DITRESS TRACH. [place] Objective Vital Signs Date Time Temp Pulse Resp B/P Pulse Ox O2 Delivery O2 Flow Rate FiO2 01/07/17 16:07 96.8 88 20 112/74 98 01/07/17 12:44 96.7 88 20 126/79 98 01/07/17 09:13 97 T-piece 5.00 28 01/07/17 09:13 97 T-piece 5.00 28 01/07/17 08:23 97.1 93 20 116/75 94 01/07/17 08:14 91 01/07/17 05:21 96.2 89 19 121/80 97 01/07/17 00:17 97.3 91 20 116/71 97 01/06/17 20:12 96.3 94 20 113/68 96 I/O 01/06/17 01/06/17 01/06/17 01/07/17 01/07/17 01/07/17 07:00 15:00 23:00 07:00 15:00 23:00 Output Total 1000 ml 1450 ml 1600 ml 1100 ml Balance -1000 ml -1450 ml -1600 ml -1100 ml Output Urine Total 1000 ml 1450 ml 1600 ml 1100 ml # Bowel Movements 1 2 3 Result Diagram: 01/05/17 0835 01/06/17 0841 Procedures 01/02/16 PEG placement 01/02/16 tracheostomy 07/22/2016 Wide excision of sacral skin wound, biopsy of the cavity lining and debridement. PEG tube replacement 07/29/16 Objective Remarks Laboratory Tests Test 01/05/17 01/06/17 08:35 08:41 Red Blood Count 4.43 MIL/MM3 (4.50-5.90) Hemoglobin 9.9 GM/DL (13.0-17.0) Hematocrit 32.0 % (39.0-51.0) Mean Corpuscular Volume 72.1 FL (80.0-100.0) Mean Corpuscular Hemoglobin 22.3 PG (27.0-34.0) Mean Corpuscular Hemoglobin 30.9 % Concent (32.0-36.0) Red Cell Distribution Width 19.9 % (11.6-17.2) Sodium Level 134 MEQ/L 133 MEQ/L (136-145) (136-145) Random Glucose 136 MG/DL 132 MG/DL (74-106) (74-106) Creatinine 0.59 MG/DL (0.60-1.30) GENERAL: SKIN: Warm and dry. HEAD: Atraumatic. Normocephalic. EYES: Pupils equal and round. No scleral icterus. No injection or drainage. ENT: No nasal bleeding or discharge. Mucous membranes pink and moist. NECK: Trachea midline. No JVD. TRACH. [place] CARDIOVASCULAR: Regular rate and rhythm. RESPIRATORY: No accessory muscle use. Clear to auscultation. Breath sounds equal bilaterally. GASTROINTESTINAL: Abdomen soft, non-tender, nondistended. Hepatic and splenic margins not palpable. MUSCULOSKELETAL: Extremities without clubbing, cyanosis, or edema. No obvious deformities. NEUROLOGICAL: Awake and alert. No obvious cranial nerve deficits. Motor grossly within normal limits. Five out of 5 muscle strength in the arms and legs. Normal speech. PSYCHIATRIC: Appropriate mood and affect; insight and judgment normal. Assessment and Plan Assessment and Plan impression respiratory failure CVA S/P TRACHEOSTOMY cxray NO ACUTE CHANGE PLAN O2 NEEDED PULM. TOILET Brandon Taylor MD Jan 07, 2017 16:42
[2017-01-07] MEDS: PARoxetine HCL SUSP 20 MG/10 ML UDC PEG SCH (18:11)
[2017-01-07] MEDS: HYOSCYAMINE 0.125 MG TAB G-TUBE PRN (21:06)
[2017-01-07] MEDS: SODIUM CHLOR 0.9% 1000 ML INJ 1,000 ML IV SCH (21:08)
[2017-01-08] VITALS (10 sets, daily range): BP systolic 95–134; BP diastolic 62–81; PULSE 85–98; RESP 19–22; TEMP 95.6–97.9; O2SAT 94–99
[2017-01-08] MEDS: FREE WATER TUBE SCH ×5 (00:11→23:42)
[2017-01-08] MEDS: DILTIAZEM HCL 30 MG TAB PEG SCH ×2 (00:11→12:05)
[2017-01-08] MEDS: HEPARIN SODIUM - SQ 10,000 UNITS/ML VIAL SQ SCH ×3 (06:09→21:17)
[2017-01-08] MEDS: ACETIC ACID 0.25% SOLN 1000 ML IRR BTL IRRIGATION SCH ×3 (06:30→21:21)
[2017-01-08] MEDS: INSULIN ASPART SUPPLEMENTAL SCALE SQ SCH (06:49)
--- NOTE | 2017-01-08 07:43 | HHI.PR ---
Subjective Remarks Follow up visit CVA to brain stem and bilateral occipital lobe infarcts. Patient seen and examined today, family at bedside. Patient more lethargic today , does awaken to voice and tracks with eyes but falls asleep shortly after. Per family, patient had been awake most of the night with increased secretions. Spoke with RN, no new acute events overnight. Vitals are stable. T-collar in place and O2 sats 95%. Positive BM noted. Tolerating TF, no bouts of vomiting or diarrhea. Objective Vitals Vital Signs Date Time Temp Pulse Resp B/P Pulse Ox O2 Delivery O2 Flow Rate FiO2 01/08/17 04:22 97.8 89 19 95/62 98 01/08/17 00:03 97.9 87 19 104/64 98 01/07/17 21:45 97 T-piece 28 01/07/17 20:14 97.3 86 19 109/69 96 01/07/17 16:07 96.8 88 20 112/74 98 01/07/17 12:44 96.7 88 20 126/79 98 01/07/17 09:13 97 T-piece 5.00 28 01/07/17 09:13 97 T-piece 5.00 28 01/07/17 08:23 97.1 93 20 116/75 94 01/07/17 08:14 91 I/O 01/07/17 01/07/17 01/07/17 01/08/17 01/08/17 01/08/17 07:00 15:00 23:00 07:00 15:00 23:00 Intake Total 1918 ml Output Total 1600 ml 1100 ml 2300 ml Balance -1600 ml -1100 ml 1918 ml -2300 ml IV Total 681 ml Tube Feeding 837 ml Other 400 ml Output Urine Total 1600 ml 1100 ml 2300 ml # Bowel Movements 2 3 2 1 Result Diagram: 01/05/17 0835 01/06/17 0841 Imaging Last Impressions Chest X-Ray 01/01/17 0000 Signed Impressions: Service Date/Time: Sunday, January 01, 2017 16:32 - CONCLUSION: 1. Tracheostomy is in satisfactory position. Moises Ramírez MD Tube Change 12/31/16 0000 Signed Impressions: Service Date/Time: Saturday, December 31, 2016 16:35 - CONCLUSION: Uncomplicated gastrojejunostomy tube exchange as above. Moises Ramírez MD Tube Check 12/04/16 0000 Signed Impressions: Service Date/Time: Sunday, December 04, 2016 17:58 - CONCLUSION: Uncomplicated tube injection as above. the tube is in good position and functions normally. Moises Ramírez MD Abdomen X-Ray 08/31/16 0000 Signed Impressions: Service Date/Time: Wednesday, August 31, 2016 16:36 - CONCLUSION: 1. No acute findings. Mild constipation. Durga Dotson MD Abdomen/Pelvis CT 04/12/16 0000 Signed Impressions: Service Date/Time: Tuesday, April 12, 2016 20:52 - CONCLUSION: 1. 6.4 cm necrotic mass or abscess in the soft tissues posteriorly just below the sacrum associated with some bony destructive change of the lower most sacrum and coccyx with inflammatory changes extending into the ischiorectal fossa and into the presacral retroperitoneum predominantly on the left side. There is associated fairly marked mural thickening of the anal verge and rectum. 2. There is gastrostomy and Arevalo catheter present. Stable abdominal aortic aneurysm. Durga Dotson MD Head Magnetic Resonance Angiography 03/05/16 0000 Signed Impressions: Service Date/Time: Saturday, March 05, 2016 09:26 - CONCLUSION: Persistent high-grade subtotal occlusive stenotic lesions in the distal right vertebral artery and proximal basilar artery with significant improvement in flow and recanalization following initial presentation of thrombosis. Stable interstitial circulation without significant stenosis. 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 There is decreasing restricted diffusion and increasing loss of volume characteristic of a subacute to chronic infarct. No evidence of acute infarct, acute hemorrhage mass or edema. Ernesto Kulkarni MD Head CT 01/16/16 0000 Signed Impressions: Service Date/Time: Saturday, January 16, 2016 10:51 - CONCLUSION: No extensive low density in the brainstem colin more prominent in the right the left extending into the right middle cerebellar peduncle consistent with brainstem infarct nonhemorrhagic acute Wellington West MD Neck Magnetic Resonance Angiography 12/22/15 1445 Signed Impressions: Service Date/Time: Tuesday, December 22, 2015 09:22 - CONCLUSION: Variant origin of the left vertebral artery from the aortic arch. No evidence of carotid stenosis. Glen Zamora MD Head/Brain Mag Res Venography 12/22/15 0000 Signed Impressions: Service Date/Time: Tuesday, December 22, 2015 09:22 - CONCLUSION: Normal MRV. Jonel Jones Jr., MD Objective Remarks GENERAL: Non-verbal, lethargic today, opens eyes to voice and command, tracking people in room, glasses worn. Not in acute distress. SKIN: Warm and dry. HEENT: Normocephalic. Pupils nonicteric. Nose without bleeding. Airway patent. NECK: Supple, trachea midline. T-tube in place. No JVD. CARDIOVASCULAR: Regular rate and rhythm. No murmur appreciated. RESPIRATORY: Breath sounds equal bilaterally. No accessory muscle use. Trach tube in place. Bedside monitor indicated oxygen saturation was 9%. GASTROINTESTINAL: Abdomen soft, non-tender, nondistended. GJ tube noted, area around insertion was clean, dry, dressing intact. MUSCULOSKELETAL: No cyanosis, or edema. PSYCHIATRIC: Pt non-verbal, he appeared calm and not in distress. Procedures 01/02/16 PEG placement 01/02/16 tracheostomy 07/22/2016 Wide excision of sacral skin wound, biopsy of the cavity lining and debridement. PEG tube replacement 07/29/16 VAC changes- M-W-F 10/23- GJ tube replacement Urinary Catheter: Yes Arevalo insert reason: Measure Accurate Output Date of Insertion: Jan 02, 2017 A/P Problem List: (1) CVA (cerebral vascular accident) ICD Code: I63.9 Status: Acute (2) A-fib ICD Code: I48.91 Status: Chronic (3) DM (diabetes mellitus) ICD Code: E11.9 Status: Chronic Assessment and Plan 60 year-old male with past medical history of paroxysmal A. fib, hypertension, stage III non-Hodgkin's lymphoma status post chemotherapy who came into the hospital with altered mental status. 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 Intermittently tracks with eyes. - Continue Keppra for seizure prophylaxis. - PT/OT signed off as patient is unable to participate. - No placement available. Appreciate case management assistance. Last CM note indicates continued difficult placement and has medicaid with no accepting facility. Rehab Medicine (Dr. Pickens) following. Chronic respiratory failure secondary to CVA - Status post tracheostomy. Continue pulmonary toilet and bronchodilators as needed. Continue trach care, suctioning. Levsin as needed. - 11/18/16 sputum culture showing pseudomonas aeruginosa and klebsiella pneumoniae, finished antibiotic course. - Pulmonary currently following, appreciate assistance. Atrial fibrillation, controlled - Continue rate control with Cardizem and metoprolol. - Echocardiogram in November 2015 shows preserved ejection fraction. Coumadin discontinued secondary to bleeding. - Continue aspirin and prophylactic heparin dose. Hyponatremia - Last NA checked 13, 01/08. Continue FWF to 200ml q6hr. History of non-Hodgkin's lymphoma - Status post brain biopsy on December 13 by neurosurgery. Pathology consistent with acute infarct without evidence of lymphoma. Oncology has signed off. Diabetes mellitus Type 2 - Hemoglobin A1c is 7. Monitor Accu-Cheks and cover with sliding scale insulin. Overall blood sugar continues well controlled. Decubitus ulcer stage IV - Continue wound care, twice-daily dressing changes. Wound care recommendations last updated 12/12/16. Continue pressure relief measures including turning and positioning. Patient's family has declined a diverting colostomy. Previous Wound culture growing Klebsiella and Enterococcus Faecalis. Previously on Augmentin. Status post wide excision of sacral skin and biopsy of the cavity lining with debridement on 07/22/16. - Continue to monitor for pain. Gastric ulcer, reflux esophagitis - EGD on 07/30/16 showed gastric ulcers. Continue PPI. H&H stable. UTI pseudomonas aeruginosa treated with abx, resolved. Severe malnutrition - Dietary last recommendations on 12/17/16. Continue Glucerna 1.0 @ 85 ml/hr to provide 2040 kcals, 85 gms protein and 1740 mls of free water. Water flushes of 30 mls before and after medication administration should be given. DVT prophylaxis: SCDs/ Heparin 5,000 units sq Q8hr. Alternate code. Discussed with RN, mother and Dr. Leal. Discharge Planning Last CM note 01/07/17 CM spoke with liason and resp therapist from [facility] who came to evaluate pt today- access given. Referral made to [facility] as they now have a resp therapist and may soon take trachs. Lali Problem Qualifiers (1) CVA (cerebral vascular accident): (2) DM (diabetes mellitus): Qualified Code: E11.9 - Type 2 diabetes mellitus without complications Haley Seymour Jan 08, 2017 07:43
[2017-01-08 07:47] LABS: AUTOMATED NEUTROPHIL # 3.3 TH/MM3 (1.8-7.7); BASOPHIL # 0.1 TH/MM3 (0-0.2); BASOPHIL % 1.1 % (0.0-2.0); EOSINOPHIL # 0.2 TH/MM3 (0-0.4); EOSINOPHIL % 3.3 % (0.0-4.0); HEMATOCRIT 29.1 % (39.0-51.0); HEMO FLAGS DIFF FINAL; LYMPH % 16.9 % (9.0-44.0); LYMPHOCYTE # 0.8 TH/MM3 (1.0-4.8); MEAN CELL VOLUME 70.9 FL (80.0-100.0); MEAN CORPUSCULAR HEMOGLOBIN 22.1 PG (27.0-34.0); MEAN CORPUSCULAR HGB CONC 31.1 % (32.0-36.0); MONO % 7.9 % (0.0-8.0); NEUT % 70.8 % (16.0-70.0); PLATELET COUNT 283 TH/MM3 (150-450); RED CELL DISTRIBUTION WIDTH 19.7 % (11.6-17.2); WHITE BLOOD COUNT 4.7 TH/MM3 (4.0-11.0)
[2017-01-08 08:10] LABS: BICARBONATE 23.4 MEQ/L (21.0-32.0); POTASSIUM 4.1 MEQ/L (3.5-5.1)
[2017-01-08] MEDS: SODIUM CHLORIDE 0.65% NASAL SPRAY 45 ML BTL NASAL SCH ×2 (09:00→21:00)
[2017-01-08] MEDS: NYSTATIN 100,000 U/GM PWD 15 GM BTL TOPICAL SCH ×2 (09:00→21:00)
[2017-01-08] MEDS: ARTIFICIAL TEARS OPTH SOLN 15 ML BTL EACH EYE SCH ×2 (09:00→21:00)
[2017-01-08] MEDS: BACITRACIN TOP OINT 15 GM TUBE TOP SCH ×2 (09:07→21:00)
[2017-01-08] MEDS: POTASSIUM CHLORIDE 25 MEQ EFFERVESCENT TAB TUBE SCH (09:09)
[2017-01-08] MEDS: LACTULOSE SYRUP 20 GM/30 ML CUP PEG SCH (09:09)
[2017-01-08] MEDS: ASPIRIN 325 MG TAB TUBE SCH (09:09)
[2017-01-08] MEDS: levETIRAcetam 500 MG/5 ML UDC TUBE SCH ×2 (09:10→21:17)
[2017-01-08] MEDS: METOPROLOL TARTRATE 25 MG TAB PEG SCH ×2 (09:10→21:17)
[2017-01-08] MEDS: MAGNESIUM HYDROXIDE SUSP 30 ML CUP PEG SCH (09:10)
[2017-01-08] MEDS: PANTOPRAZOLE SODIUM 40 MG VIAL IV PUSH SCH ×2 (10:30→23:42)
[2017-01-08] MEDS: HYOSCYAMINE 0.125 MG TAB G-TUBE PRN (12:11)
--- NOTE | 2017-01-08 15:54 | HHI.PR ---
Subjective Remarks opens eyes on o2 , o2 SAT 97% ON T PIECE NO DISTRESS TRACH. [place] Objective Vital Signs Date Time Temp Pulse Resp B/P Pulse Ox O2 Delivery O2 Flow Rate FiO2 01/08/17 12:36 95.6 85 20 106/69 98 01/08/17 08:54 96 01/08/17 08:13 96.1 98 20 123/81 94 01/08/17 04:22 97.8 89 19 95/62 98 01/08/17 00:03 97.9 87 19 104/64 98 01/07/17 22:10 87 01/07/17 21:45 97 T-piece 28 01/07/17 20:14 97.3 86 19 109/69 96 01/07/17 16:07 96.8 88 20 112/74 98 I/O 01/07/17 01/07/17 01/07/17 01/08/17 01/08/17 01/08/17 07:00 15:00 23:00 07:00 15:00 23:00 Intake Total 1918 ml Output Total 1600 ml 1100 ml 2300 ml 1350 ml Balance -1600 ml -1100 ml 1918 ml -2300 ml -1350 ml IV Total 681 ml Tube Feeding 837 ml Other 400 ml Output Urine Total 1600 ml 1100 ml 2300 ml 1350 ml # Bowel Movements 2 3 2 1 Result Diagram: 01/08/17 0639 01/08/17 0639 Procedures 01/02/16 PEG placement 01/02/16 tracheostomy 07/22/2016 Wide excision of sacral skin wound, biopsy of the cavity lining and debridement. PEG tube replacement 07/29/16 Objective Remarks Laboratory Tests Test 01/05/17 01/06/17 08:35 08:41 Red Blood Count 4.43 MIL/MM3 (4.50-5.90) Hemoglobin 9.9 GM/DL (13.0-17.0) Hematocrit 32.0 % (39.0-51.0) Mean Corpuscular Volume 72.1 FL (80.0-100.0) Mean Corpuscular Hemoglobin 22.3 PG (27.0-34.0) Mean Corpuscular Hemoglobin 30.9 % Concent (32.0-36.0) Red Cell Distribution Width 19.9 % (11.6-17.2) Sodium Level 134 MEQ/L 133 MEQ/L (136-145) (136-145) Random Glucose 136 MG/DL 132 MG/DL (74-106) (74-106) Creatinine 0.59 MG/DL (0.60-1.30) GENERAL: SKIN: Warm and dry. HEAD: Atraumatic. Normocephalic. EYES: Pupils equal and round. No scleral icterus. No injection or drainage. ENT: No nasal bleeding or discharge. Mucous membranes pink and moist. NECK: Trachea midline. No JVD. TRACH. [place] CARDIOVASCULAR: Regular rate and rhythm. RESPIRATORY: No accessory muscle use. Clear to auscultation. Breath sounds equal bilaterally. GASTROINTESTINAL: Abdomen soft, non-tender, nondistended. Hepatic and splenic margins not palpable. MUSCULOSKELETAL: Extremities without clubbing, cyanosis, or edema. No obvious deformities. NEUROLOGICAL: Awake and alert. No obvious cranial nerve deficits. Motor grossly within normal limits. Five out of 5 muscle strength in the arms and legs. Normal speech. PSYCHIATRIC: Appropriate mood and affect; insight and judgment normal. Assessment and Plan Assessment and Plan impression respiratory failure CVA S/P TRACHEOSTOMY cxray NO ACUTE CHANGE PLAN O2 NEEDED PULM. TOILET Brandon Taylor MD Jan 08, 2017 15:53
[2017-01-08] MEDS: SENNOSIDES SYRUP 8.8 MG/5 ML CUP PEG SCH (16:01)
[2017-01-08] MEDS: PARoxetine HCL SUSP 20 MG/10 ML UDC PEG SCH (18:11)
[2017-01-08] MEDS: SODIUM CHLOR 0.9% 1000 ML INJ 1,000 ML IV SCH (19:45)
[2017-01-09] VITALS (16 sets, daily range): BP systolic 93–133; BP diastolic 59–84; PULSE 91–136; RESP 18–27; TEMP 95.3–102.3; O2SAT 91–100
[2017-01-09] MEDS: DILTIAZEM HCL 30 MG TAB PEG SCH ×4 (02:04→21:05)
[2017-01-09] MEDS: FREE WATER TUBE SCH ×2 (05:50→12:00)
[2017-01-09] MEDS: HEPARIN SODIUM - SQ 10,000 UNITS/ML VIAL SQ SCH ×2 (05:50→22:00)
[2017-01-09] MEDS: ACETIC ACID 0.25% SOLN 1000 ML IRR BTL IRRIGATION SCH ×2 (05:51→22:54)
[2017-01-09] MEDS: INSULIN ASPART SUPPLEMENTAL SCALE SQ SCH (06:15)
[2017-01-09] MEDS: LACTULOSE SYRUP 20 GM/30 ML CUP PEG SCH (08:12)
[2017-01-09] MEDS: MAGNESIUM HYDROXIDE SUSP 30 ML CUP PEG SCH (08:12)
[2017-01-09] MEDS: ASPIRIN 325 MG TAB TUBE SCH (08:12)
[2017-01-09] MEDS: POTASSIUM CHLORIDE 25 MEQ EFFERVESCENT TAB TUBE SCH (08:12)
[2017-01-09] MEDS: levETIRAcetam 500 MG/5 ML UDC TUBE SCH ×2 (08:13→20:12)
[2017-01-09] MEDS: METOPROLOL TARTRATE 25 MG TAB PEG SCH (08:13)
[2017-01-09] MEDS: BACITRACIN TOP OINT 15 GM TUBE TOP SCH ×2 (08:25→21:05)
[2017-01-09] MEDS: NYSTATIN 100,000 U/GM PWD 15 GM BTL TOPICAL SCH ×2 (08:26→21:05)
[2017-01-09] MEDS: SODIUM CHLORIDE 0.65% NASAL SPRAY 45 ML BTL NASAL SCH ×2 (08:26→22:08)
[2017-01-09] MEDS: ARTIFICIAL TEARS OPTH SOLN 15 ML BTL EACH EYE SCH ×2 (08:26→21:05)
[2017-01-09] MEDS: SODIUM CHLOR 0.9% 1000 ML INJ 1,000 ML IV SCH (10:59)
--- NOTE | 2017-01-09 11:00 | HHI.PR ---
Subjective Remarks Written by Haley Seymour, acting as scribe for Dr. Leal on 01/09/17 at 14:18. 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 Patient seen and examined today, family and RN at bedside. Per RN, Arevalo catheter was removed yesterday and since removal patient has had minimal urinary output. Bladder is firm and patient grimaces to palpation. Secretions have increased since yesterday. No report of fever overnight, vitals stable. Positive BM noted. Later in the day, patient's O2 saturation went down and a rapid response ( Halicat) was called. Objective Vitals Vital Signs Date Time Temp Pulse Resp B/P Pulse Ox O2 Delivery O2 Flow Rate FiO2 01/09/17 09:59 96 T-piece 5.00 28 01/09/17 09:59 96 T-piece 5.00 28 01/09/17 08:28 97.5 106 22 123/79 95 01/09/17 04:00 95.3 91 20 130/74 95 01/09/17 00:00 97.1 97 20 133/84 94 01/08/17 21:26 96 T-piece 5.00 28 01/08/17 20:00 97.0 97 22 134/80 97 01/08/17 18:08 96 01/08/17 16:05 96.7 89 20 104/69 97 01/08/17 15:53 99 T-piece 28 01/08/17 15:53 99 T-piece 4.00 28 01/08/17 12:36 95.6 85 20 106/69 98 I/O 01/08/17 01/08/17 01/08/17 01/09/17 01/09/17 01/09/17 07:00 15:00 23:00 07:00 15:00 23:00 Intake Total 309 ml Output Total 2300 ml 1350 ml 300 ml 200 ml Balance -2300 ml -1350 ml 9 ml -200 ml IV Total 309 ml Output Urine Total 2300 ml 1350 ml 300 ml 200 ml Bladder Scan Volume Amount 999 ml # Voids 0 # Bowel Movements 1 1 1 1 Result Diagram: 01/08/17 0639 01/08/17 0639 Imaging Last Impressions Chest X-Ray 01/01/17 0000 Signed Impressions: Service Date/Time: Sunday, January 01, 2017 16:32 - CONCLUSION: 1. Tracheostomy is in satisfactory position. Moises Ramírez MD Tube Change 12/31/16 0000 Signed Impressions: Service Date/Time: Saturday, December 31, 2016 16:35 - CONCLUSION: Uncomplicated gastrojejunostomy tube exchange as above. Moises Ramírez MD Tube Check 12/04/16 0000 Signed Impressions: Service Date/Time: Sunday, December 04, 2016 17:58 - CONCLUSION: Uncomplicated tube injection as above. the tube is in good position and functions normally. Moises Ramírez MD Abdomen X-Ray 08/31/16 0000 Signed Impressions: Service Date/Time: Wednesday, August 31, 2016 16:36 - CONCLUSION: 1. No acute findings. Mild constipation. Durga Dotson MD Abdomen/Pelvis CT 04/12/16 0000 Signed Impressions: Service Date/Time: Tuesday, April 12, 2016 20:52 - CONCLUSION: 1. 6.4 cm necrotic mass or abscess in the soft tissues posteriorly just below the sacrum associated with some bony destructive change of the lower most sacrum and coccyx with inflammatory changes extending into the ischiorectal fossa and into the presacral retroperitoneum predominantly on the left side. There is associated fairly marked mural thickening of the anal verge and rectum. 2. There is gastrostomy and Arevalo catheter present. Stable abdominal aortic aneurysm. Durga Dotson MD Head Magnetic Resonance Angiography 03/05/16 0000 Signed Impressions: Service Date/Time: Saturday, March 05, 2016 09:26 - CONCLUSION: Persistent high-grade subtotal occlusive stenotic lesions in the distal right vertebral artery and proximal basilar artery with significant improvement in flow and recanalization following initial presentation of thrombosis. Stable interstitial circulation without significant stenosis. 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 There is decreasing restricted diffusion and increasing loss of volume characteristic of a subacute to chronic infarct. No evidence of acute infarct, acute hemorrhage mass or edema. Ernesto Kulkarni MD Head CT 01/16/16 0000 Signed Impressions: Service Date/Time: Saturday, January 16, 2016 10:51 - CONCLUSION: No extensive low density in the brainstem colin more prominent in the right the left extending into the right middle cerebellar peduncle consistent with brainstem infarct nonhemorrhagic acute Wellington West MD Neck Magnetic Resonance Angiography 12/22/15 1445 Signed Impressions: Service Date/Time: Tuesday, December 22, 2015 09:22 - CONCLUSION: Variant origin of the left vertebral artery from the aortic arch. No evidence of carotid stenosis. Glen Zamora MD Head/Brain Mag Res Venography 12/22/15 0000 Signed Impressions: Service Date/Time: Tuesday, December 22, 2015 09:22 - CONCLUSION: Normal MRV. Jonel Jones Jr., MD Objective Remarks GENERAL: Non-verbal, lethargic today, opens eyes to voice and command, tracking people in room, glasses worn. Not in acute distress. SKIN: Warm and dry. HEENT: Normocephalic. Pupils nonicteric. Nose without bleeding. Airway patent. NECK: Supple, trachea midline. T-tube in place. No JVD. CARDIOVASCULAR: Regular rate and rhythm. No murmur appreciated. RESPIRATORY: Breath sounds equal bilaterally. No accessory muscle use. Trach tube in place. Bedside monitor indicated oxygen saturation was 9%. GASTROINTESTINAL: Abdomen soft, non-tender, nondistended. GJ tube noted, area around insertion was clean, dry, dressing intact. MUSCULOSKELETAL: No cyanosis, or edema. PSYCHIATRIC: Pt non-verbal, he appeared calm and not in distress. Procedures 01/02/16 PEG placement 01/02/16 tracheostomy 07/22/2016 Wide excision of sacral skin wound, biopsy of the cavity lining and debridement. PEG tube replacement 07/29/16 VAC changes- M-W-F /- GJ tube replacement Date of Insertion: Jan 02, 2017 A/P Problem List: (1) CVA (cerebral vascular accident) ICD Code: I63.9 Status: Acute (2) A-fib ICD Code: I48.91 Status: Chronic (3) DM (diabetes mellitus) ICD Code: E11.9 Status: Chronic Assessment and Plan 60 year-old male with past medical history of paroxysmal A. fib, hypertension, stage III non-Hodgkin's lymphoma status post chemotherapy who came into the hospital with altered mental status. Later in the day on 01/09/2017, patient's O2 saturation went down to 70-80s. Halicat (rapid response) was called. I went to evaluate patient immediately. Patient was tachycardic and tachypneic. He was placed on 100% O2 via trach. Reviewed chest xray which did not show any acute findings. Patient is at risk of aspiration as well as healthcare associated pneumonia. We obtained CBC, chemistry panel. We then took patient to ICU and patient was placed on mechanical ventilation. We consulted ICU attending and I updated patient's condition to the ICU attending. Also discussed with family members. Total critical care time spent over 45 minutes. 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 Intermittently tracks with eyes. - Continue Keppra for seizure prophylaxis. - PT/OT signed off as patient is unable to participate. - No placement available. Appreciate case management assistance. Last CM note indicates continued difficult placement and has medicaid with no accepting facility. Rehab Medicine (Dr. Pickens) following. Fever, acute - At this time unable to make a sepsis diagnosis. Temp 100.8. - Chest x-ray resulted and showing mild chronic appearing changes within the pulmonary parenchyma. No acute changes. - UA ordered and pending. Sputum ordered. Follow. - CBC and BMP and lactic acid ordered. Follow. Chronic respiratory failure secondary to CVA - Status post tracheostomy. Continue pulmonary toilet and bronchodilators as needed. Continue trach care, suctioning. Levsin as needed. - 11/18/16 sputum culture showing pseudomonas aeruginosa and klebsiella pneumoniae, finished antibiotic course. - Pulmonary currently following, appreciate assistance. - Patient with increased secretions today and O2 sats in 88-90%. Will obtain chest xray. Follow. Atrial fibrillation, controlled - Continue rate control with Cardizem and metoprolol. - Echocardiogram in November 2015 shows preserved ejection fraction. Coumadin discontinued secondary to bleeding. - Continue aspirin and prophylactic heparin dose. Hyponatremia - Last NA checked 135, 01/08. Continue FWF to 200ml q6hr. History of non-Hodgkin's lymphoma - Status post brain biopsy on December 13 by neurosurgery. Pathology consistent with acute infarct without evidence of lymphoma. Oncology has signed off. Diabetes mellitus Type 2 - Hemoglobin A1c is 7. Monitor Accu-Cheks and cover with sliding scale insulin. Overall blood sugar continues well controlled. Decubitus ulcer stage IV - Continue wound care, twice-daily dressing changes. Wound care recommendations last updated 12/12/16. Continue pressure relief measures including turning and positioning. Patient's family has declined a diverting colostomy. Previous Wound culture growing Klebsiella and Enterococcus Faecalis. Previously on Augmentin. Status post wide excision of sacral skin and biopsy of the cavity lining with debridement on 07/22/16. - Continue to monitor for pain. Gastric ulcer, reflux esophagitis - EGD on 07/30/16 showed gastric ulcers. Continue PPI. H&H stable. UTI pseudomonas aeruginosa treated with abx, resolved. Urinary retention - Orders to bladder scan, results were well over 800 mls. Orders to replace Arevalo catheter. Severe malnutrition - Dietary last recommendations on 12/17/16. Continue Glucerna 1.0 @ 85 ml/hr to provide 2040 kcals, 85 gms protein and 1740 mls of free water. Water flushes of 30 mls before and after medication administration should be given. DVT prophylaxis: SCDs/ Heparin 5,000 units sq Q8hr. Alternate code. This note was transcribed by RHIANNA Ho. I, Dr. Alex Leal personally performed the history, physical exam, and medical decision making; and confirmed the accuracy of the information in the transcribed note. Authenticated by Dr. Alex Leal on 01/15/17 at 13:51. Discharge Planning Last CM note 01/07/17 CM spoke with liason and resp therapist from [facility] who came to evaluate pt today- access given. Referral made to [facility] as they now have a resp therapist and may soon take trachromina Escalera Problem Qualifiers (1) CVA (cerebral vascular accident): (2) DM (diabetes mellitus): Qualified Code: E11.9 - Type 2 diabetes mellitus without complications Haley Seymour Jan 09, 2017 11:00 Birdie Leal DO Jan 15, 2017 13:50
[2017-01-09] MEDS: PANTOPRAZOLE SODIUM 40 MG VIAL IV PUSH SCH ×2 (11:01→22:09)
[2017-01-09] MEDS: HYOSCYAMINE 0.125 MG TAB G-TUBE PRN (11:01)
[2017-01-09] MEDS: ACETAMINOPHEN/CODEINE ELIX 120 MG/12 MG/5 ML CUP G-TUBE PRN ×2 (11:01→23:45)
--- NOTE | 2017-01-09 13:39 | RADRPT ---
EXAM DATE/TIME: 01/09/2017 13:13 [facility] COMPARISON: CHEST SINGLE AP, November 18, 2016, 10:14. CHEST SINGLE AP, January 01, 2017, 16:32. INDICATIONS : Congestion. MEDICAL HISTORY : Hypertension. Diabetes mellitus type II. SURGICAL HISTORY : None. ENCOUNTER: Subsequent ACUITY: 1 week PAIN SCORE: Non-responsive. LOCATION: chest FINDINGS: The tracheostomy tubes in good position. There are mild chronic appearing interstitial changes. The e xam is stable compared to the previous dated 01/01/17. CONCLUSION: 1. Mild chronic appearing changes within the pulmonary parenchyma. Tracheostomy tube in good position . Stable compared to prior. Moises Ramírez MD on January 09, 2017 at 13:36 Board Certified Radiologist. This report was verified electronically.
[2017-01-09] MEDS: ACETAMINOPHEN 650 MG/20.3 ML UDC TUBE PRN ×2 (15:46→23:48)
--- NOTE | 2017-01-09 15:59 | HHI.CCPN ---
Subjective Remarks/Hospital Course 59year-old male with past medical history of paroxysmal atrial fibrillation, hypertension, stage IIIa non-Hodgkin's lymphoma (s/p chemotherapy with Rituxan, [facility] 2014) presented to [facility] emergency department on 12/20 with altered mental status. When he woke up of 4 o'clock, the patient had some right facial droop associated with headaches. CT scan of the brain showed no focal or acute intracranial hemorrhage. However, there is an new area of decreased density in the left occipital lobe, suggestive of recent non hemorrhagic infarction and a decreased density in the previously noted right occipital lobe which had increased in size. The patient was recently admitted on December 06 with similar presentation and he had a right occipital juan jose hole brain biopsy done by Dr. Marin on December 13. The pathology results showed acute infarction without evidence of lymphoma. On this admission, the patient became obtunded, had sonorous respirations and can would not follow any commands. He was subsequently intubated by the emergency department physician. MRI of the brain was obtained which showed a new area of restricted diffusion within the left occipital lobe suggesting acute infarction. EKG on arrival showed A-fib with RVR at rate of 114 beats per minute. Pertinent ICU Coarse: 12/21: No events overnight. Sedated with Diprivan and intubated. For MRA brain, carotids and MRV brain today . 12/22: Patient remains intubated, off sedation. 12/23: No events overnight. Remains off sedation. Withdraws to pain. 12/24: Remains intubated, on no sedation. For repeat MRI brain today 12/25: Tolerated PSV for 4-5 hour yesterday. 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 12/26: Tolerating PSV. Opens eyes to voice, reportedly has been blinking to command but isn't doing so currently even when family encouraging him. 12/27: Continues to tolerate PSV. Follows commands via ocular movements. Weak withdraw LUE noxious stimuli. 12/28: Tolerating PSV 04/24. Family desires trach - warfarin placed on hold. MRI today per neurology. 12/29: Tolerating tube feeds. INR 2.2. Sputum culture with pansensitive klebsiella. 12/30: No neuro change. Continues to tolerate PSV 12/31: General surgery and GI planning trach / PEG tomorrow. Has low grade temp 100.2. 01/01: On full vent support. No significant neurologic changes. s/p bedside Trach and PEG. 01/02: Resuming PSV trials. Restart tube feeds. 01/03; On continuous trach collar since yesterday evening. No significant secretions. 01/04 No events overnight. Patient has been on TP's x 2 days currently on 28% FIO2. T: 100.5 last night. 01/09 Reconsult: Halicat was called as patient was found hypoxic with sats 70%, tachycardic HR 140's patient was subsequently transferred to [facility] and placed back on ventilator. Trach changed to size #6 XLT. Patient was found to have fever with T 102.1. CXR this afternoon showed mild chronic parenchymal changes. He was noted to have some bloody secretions from trach last 2 days. Objective Vital Signs Date Time Temp Pulse Resp B/P Pulse Ox O2 Delivery O2 Flow Rate FiO2 01/09/17 15:05 99 15.00 100 01/09/17 12:57 95.8 96 22 106/71 01/09/17 09:59 T-piece Intake and Output 01/08/17 01/08/17 01/09/17 08:00 16:00 00:00 Intake Total 309 ml Output Total 2300 ml 1350 ml 300 ml Balance -2300 ml -1350 ml 9 ml Result Diagram: 01/08/17 0639 01/08/17 0639 Imaging Last Impressions Chest X-Ray 01/09/17 0000 Signed Impressions: Service Date/Time: December 13:13 - CONCLUSION: 1. Mild chronic appearing changes within the pulmonary parenchyma. Tracheostomy tube in good position. Stable compared to prior. Moises Ramírez MD Tube Change 12/31/16 0000 Signed Impressions: Service Date/Time: Saturday, December 31, 2016 16:35 - CONCLUSION: Uncomplicated gastrojejunostomy tube exchange as above. Moises Ramírez MD Tube Check 12/04/16 0000 Signed Impressions: Service Date/Time: Sunday, December 04, 2016 17:58 - CONCLUSION: Uncomplicated tube injection as above. the tube is in good position and functions normally. Moises Ramírez MD Abdomen X-Ray 2/11/17 0000 Signed Impressions: Service Date/Time: Wednesday, August 31, 2016 16:36 - CONCLUSION: 1. No acute findings. Mild constipation. Durga Dotson MD Abdomen/Pelvis CT 04/12/16 0000 Signed Impressions: Service Date/Time: Tuesday, April 12, 2016 20:52 - CONCLUSION: 1. 6.4 cm necrotic mass or abscess in the soft tissues posteriorly just below the sacrum associated with some bony destructive change of the lower most sacrum and coccyx with inflammatory changes extending into the ischiorectal fossa and into the presacral retroperitoneum predominantly on the left side. There is associated fairly marked mural thickening of the anal verge and rectum. 2. There is gastrostomy and Arevalo catheter present. Stable abdominal aortic aneurysm. Durga Dotson MD Head Magnetic Resonance Angiography 03/05/16 0000 Signed Impressions: Service Date/Time: Saturday, March 05, 2016 09:26 - CONCLUSION: Persistent high-grade subtotal occlusive stenotic lesions in the distal right vertebral artery and proximal basilar artery with significant improvement in flow and recanalization following initial presentation of thrombosis. Stable interstitial circulation without significant stenosis. 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 There is decreasing restricted diffusion and increasing loss of volume characteristic of a subacute to chronic infarct. No evidence of acute infarct, acute hemorrhage mass or edema. Ernesto Kulkarni MD Head CT 01/16/16 0000 Signed Impressions: Service Date/Time: Saturday, January 16, 2016 10:51 - CONCLUSION: No extensive low density in the brainstem colin more prominent in the right the left extending into the right middle cerebellar peduncle consistent with brainstem infarct nonhemorrhagic acute Wellington West MD Neck Magnetic Resonance Angiography 12/22/15 1445 Signed Impressions: Service Date/Time: Tuesday, December 22, 2015 09:22 - CONCLUSION: Variant origin of the left vertebral artery from the aortic arch. No evidence of carotid stenosis. Glen Zamora MD Head/Brain Mag Res Venography 12/22/15 0000 Signed Impressions: Service Date/Time: Tuesday, December 22, 2015 09:22 - CONCLUSION: Normal MRV. Jonel Jones Jr., MD Objective Remarks GENERAL: Elderly male lying in bed and breathing spontaneously via tracheostomy. unlabored. SKIN: Warm and dry, well perfused HEENT: Normocephalic. No scleral icterus. Right facial droop NECK: Trachea midline. No JVD. Tracheostomy site intact CARDIOVASCULAR: Regular rate and rhythm without any appreciable murmurs RESPIRATORY: Coarse breath sounds anteriorly with good air entry bilaterally. not tachypneic. unlabored. equal chest rise. spo2 100% on fio2 100%. I turned his fio2 down to 28% and monitored the patient for 10 minutes at his bedside, and his spo2 remained 99%. I suctioned a moderate amount of white secretions. GASTROINTESTINAL: Abdomen soft, nondistended. Bowel sounds present. PEG site intact with a small hole in his PEG tube. MUSCULOSKELETAL: Palpable pulses with warm periphery. No edema NEURO: + spontaneous eye openings Procedures 01/02/16 PEG placement 01/02/16 tracheostomy 07/22/2016 Wide excision of sacral skin wound, biopsy of the cavity lining and debridement. PEG tube replacement 07/29/16 VAC changes- M-W-F 4/5- GJ tube replacement Date of Insertion: Jan 02, 2017 A/P Assessment and Plan Imp 1) Acute on chronic resp failure 2)s/p trach and PEG tube placement 3)s/p CVA 4)HCAP 5)UTI 6)Hyponatremia 7)Hx NHL 8)Hx Afib 9)DM 10)Stage IV deub ulcer Plan Neuro: Monitor neuro status and avoid sedatives. On Keppra 500mg BID. Will check CT brain wo contrast Last MRI brain 02/2016: Evolving brainstem and bilateral occipital lobe infarcts with evidence of subacute hemorrhagic products. There is decreasing restricted diffusion and increasing loss of volume characteristic of a subacute to chronic infarct. No evidence of acute infarct, acute hemorrhage mass or edema. Pulm: Continue with vent support keep sat >92% Bronchodilators, ICU vent bundle. Check ABG. Check CTA chest r/o PE. CV: Monitor HR and BP keep MAP>65mmHg. On ASA 325mg daily Give Cardizem 10mg IV x1, Increase Cardizem 30mg QID, Hold Lopressor 25mg Q12 : Monitor renal function, I/O's, electrolytes replacement per protocol. Place on NS@125ml/hr and give 1L NS bolus x1, d/c Free water GI: On Protonix 40mg Q12, tube feeds- change to Glucerna 1.5 with goal rate 45ml /hr ID: Place on abx ( Cefepime, Vanco) Panculture ( Blood, sputum, urine) ID eval. Patient had Pseudomonas and Kleb in November and Pseudomonas in urine. Heme: Monitor CBC Endo: Change SSI to Q6, hold Lantus GI prophylaxis with Protonix 40mg Q12 DVT prophylaxis with SCD and Heparin SQ Level 3 Wil Langston MD Jan 09, 2017 15:59
[2017-01-09] MEDS: SENNOSIDES SYRUP 8.8 MG/5 ML CUP PEG SCH (16:00)
[2017-01-09 16:02] LABS: AUTOMATED NEUTROPHIL # 11.4 TH/MM3 (1.8-7.7); BASOPHIL # 0.1 TH/MM3 (0-0.2); BASOPHIL % 0.4 % (0.0-2.0); EOSINOPHIL # 0.1 TH/MM3 (0-0.4); EOSINOPHIL % 0.7 % (0.0-4.0); HEMATOCRIT 32.8 % (39.0-51.0); LYMPH % 4.4 % (9.0-44.0); LYMPHOCYTE # 0.5 TH/MM3 (1.0-4.8); MEAN CELL VOLUME 71.2 FL (80.0-100.0); MEAN CORPUSCULAR HEMOGLOBIN 21.7 PG (27.0-34.0); MEAN CORPUSCULAR HGB CONC 30.4 % (32.0-36.0); MONO % 2.2 % (0.0-8.0); NEUT % 92.3 % (16.0-70.0); PLATELET COUNT 331 TH/MM3 (150-450); RED CELL DISTRIBUTION WIDTH 19.9 % (11.6-17.2); WHITE BLOOD COUNT 12.3 TH/MM3 (4.0-11.0)
[2017-01-09 16:23] LABS: ALKALINE PHOSPHATASE 84 U/L (45-117); ALT (GPT) 12 U/L (12-78); ANION GAP 12 MEQ/L (5-15); AST (GOT) 10 U/L (15-37); BICARBONATE 22.4 MEQ/L (21.0-32.0); BLOOD UREA NITROGEN 9 MG/DL (7-18); CHLORIDE 101 MEQ/L (98-107); GLOMERULAR FILTRATION RATE 93 ML/MIN (>89); POTASSIUM 4.8 MEQ/L (3.5-5.1); SODIUM (NA) 135 MEQ/L (136-145); TOTAL BILIRUBIN ADULT 0.4 MG/DL (0.2-1.0)
[2017-01-09 16:25] LABS: HEMO FLAGS AUTO DIFF
[2017-01-09] MEDS: RESP: ALBUTEROL 2.5 MG/IPRATROPIUM 0.5 MG NEB (SCH) NEB ×2 (16:46→19:37)
[2017-01-09 17:05] LABS: BLOOD GAS BASE EXCESS -3.2 mmol/L (-2-2); BLOOD GAS CARBOXYHEMOGLOBIN 1.7 % (0-4); BLOOD GAS HCO3 21 mmol/L (22-26); BLOOD GAS O2 HGB SATURATION 95 % (90-100); BLOOD GAS OXYGEN CONTENT 12.4 Vol % (12.0-20.0); BLOOD GAS PCO2 33 mmHg (38-42); BLOOD GAS PO2 99 mmHg (61-120); BLOOD GAS TOTAL HGB 9.1 G/DL (12.0-16.0); CRITICAL VALUE NO; FIO2 50 %; OXYGEN DEVICE VENTILATOR; TEMP CORR TO 98.6; VENT SETTINGS PRVC/14/500/0.8/+5
[2017-01-09 17:06] LABS: DRAW SITE LT RADIAL; NUMBER OF ARTERIAL PUNCTURES 1; STAT NO; ULNAR PULSE PRESENT
[2017-01-09 17:07] LABS: BANDS 6 % (0-6); EOSINOPHILS 2 % (0-4); MYELOCYTES 1 % (0-0); NEUTROPHIL # MANUAL DIFF 11.1 TH/MM3 (1.8-7.7); POLYS (SEG NEUTROPHILS) 83 % (16-70); WBC DIFF SAMPLE 100
--- NOTE | 2017-01-09 17:07 | HHI.IDPN ---
Subjective Subjective Remarks reconsulted 08/22 new fever, suspected sepsis Interim chart reviewed reveals: fever started today up to 102.1 Pt was xferred to ICU afte devevelopping hypoxia, hemoptysis Pt is trached chrociaaly he was put back on the vent large amount of beige secretions mixed with blood + 6 BMs yda, on lactulose BP low 80/50 s no on pressors yet Lactic acid 4.1 UA with mildly elevated WBC Antibiotics cefepime vanco Lines Peripheral IV Past Medical History Hypertension. Stage III non-Hodgkin's lymphoma. Diabetes mellitus. Paroxysmal atrial fibrillation. Brain biopsy in Nov, 2015. History of left arm surgery. 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 Vital Signs Date Time Temp Pulse Resp B/P Pulse Ox O2 Delivery O2 Flow Rate FiO2 01/09/17 15:29 100 50 01/09/17 15:05 99 15.00 100 01/09/17 12:57 95.8 96 22 106/71 94 01/09/17 09:59 96 T-piece 5.00 28 01/09/17 09:59 96 T-piece 5.00 28 01/09/17 08:28 97.5 106 22 123/79 95 01/09/17 04:00 95.3 91 20 130/74 95 01/09/17 00:00 97.1 97 20 133/84 94 01/08/17 21:26 96 T-piece 5.00 28 01/08/17 20:00 97.0 97 22 134/80 97 01/08/17 18:08 96 01/08/17 01/08/17 01/09/17 15:00 23:00 07:00 Intake Total 309 ml Output Total 1350 ml 300 ml 200 ml Balance -1350 ml 9 ml -200 ml IV Total 309 ml Output Urine Total 1350 ml 300 ml 200 ml # Voids 0 # Bowel Movements 1 1 . Laboratory Tests Test 01/08/17 01/09/17 06:39 15:46 White Blood Count 4.7 TH/MM3 12.3 TH/MM3 Red Blood Count 4.10 MIL/MM3 4.60 MIL/MM3 Hemoglobin 9.1 GM/DL 10.0 GM/DL Hematocrit 29.1 % 32.8 % Mean Corpuscular Volume 70.9 FL 71.2 FL Mean Corpuscular Hemoglobin 22.1 PG 21.7 PG Mean Corpuscular Hemoglobin 31.1 % 30.4 % Concent Red Cell Distribution Width 19.7 % 19.9 % Platelet Count 283 TH/MM3 331 TH/MM3 Mean Platelet Volume 8.6 FL 8.4 FL Neutrophils (%) (Auto) 70.8 % 92.3 % Lymphocytes (%) (Auto) 16.9 % 4.4 % Monocytes (%) (Auto) 7.9 % 2.2 % Eosinophils (%) (Auto) 3.3 % 0.7 % Basophils (%) (Auto) 1.1 % 0.4 % Neutrophils # (Auto) 3.3 TH/MM3 11.4 TH/MM3 Lymphocytes # (Auto) 0.8 TH/MM3 0.5 TH/MM3 Monocytes # (Auto) 0.4 TH/MM3 0.3 TH/MM3 Eosinophils # (Auto) 0.2 TH/MM3 0.1 TH/MM3 Basophils # (Auto) 0.1 TH/MM3 0.1 TH/MM3 CBC Comment DIFF FINAL AUTO DIFF Differential Comment Laboratory Tests Test 01/08/17 01/09/17 06:39 15:46 Sodium Level 135 MEQ/L 135 MEQ/L Potassium Level 4.1 MEQ/L 4.8 MEQ/L Chloride Level 101 MEQ/L 101 MEQ/L Carbon Dioxide Level 23.4 MEQ/L 22.4 MEQ/L Anion Gap 11 MEQ/L 12 MEQ/L Blood Urea Nitrogen 7 MG/DL 9 MG/DL Creatinine 0.57 MG/DL 0.84 MG/DL Estimat Glomerular Filtration 145 ML/MIN 93 ML/MIN Rate Random Glucose 120 MG/DL 139 MG/DL Calcium Level 8.0 MG/DL 9.0 MG/DL Lactic Acid Level 4.1 mmol/L Phosphorus Level 3.0 MG/DL Magnesium Level 2.0 MG/DL Total Bilirubin 0.4 MG/DL Aspartate Amino Transf 10 U/L (AST/SGOT) Alanine Aminotransferase 12 U/L (ALT/SGPT) Alkaline Phosphatase 84 U/L Total Protein 8.9 GM/DL Albumin 2.5 GM/DL Microbiology Date/Time Procedure Status Source Growth 01/09/17 14:18 Gram Stain Received Sputum Endotracheal Pending 01/09/17 14:18 Sputum Culture Received Sputum Endotracheal Pending 01/09/17 15:43 Aerobic Blood Culture Received Blood Peripheral Pending 01/09/17 15:43 Anaerobic Blood Culture Received Blood Peripheral Pending 01/09/17 15:46 Aerobic Blood Culture Received Blood Peripheral Pending 01/09/17 15:46 Anaerobic Blood Culture Received Blood Peripheral Pending Imaging Last Impressions Chest X-Ray 01/09/17 0000 Signed Impressions: Service Date/Time: December 13:13 - CONCLUSION: 1. Mild chronic appearing changes within the pulmonary parenchyma. Tracheostomy tube in good position. Stable compared to prior. Moises Ramírez MD Tube Change 12/31/16 0000 Signed Impressions: Service Date/Time: Saturday, December 31, 2016 16:35 - CONCLUSION: Uncomplicated gastrojejunostomy tube exchange as above. Moises Ramírez MD Tube Check 12/04/16 0000 Signed Impressions: Service Date/Time: Sunday, December 04, 2016 17:58 - CONCLUSION: Uncomplicated tube injection as above. the tube is in good position and functions normally. Moises Ramírez MD Abdomen X-Ray 08/31/16 0000 Signed Impressions: Service Date/Time: Wednesday, August 31, 2016 16:36 - CONCLUSION: 1. No acute findings. Mild constipation. Durga Dotson MD Abdomen/Pelvis CT 04/12/16 0000 Signed Impressions: Service Date/Time: Tuesday, April 12, 2016 20:52 - CONCLUSION: 1. 6.4 cm necrotic mass or abscess in the soft tissues posteriorly just below the sacrum associated with some bony destructive change of the lower most sacrum and coccyx with inflammatory changes extending into the ischiorectal fossa and into the presacral retroperitoneum predominantly on the left side. There is associated fairly marked mural thickening of the anal verge and rectum. 2. There is gastrostomy and Lopez catheter present. Stable abdominal aortic aneurysm. Durga Dotson MD Head Magnetic Resonance Angiography 03/05/16 0000 Signed Impressions: Service Date/Time: Saturday, March 05, 2016 09:26 - CONCLUSION: Persistent high-grade subtotal occlusive stenotic lesions in the distal right vertebral artery and proximal basilar artery with significant improvement in flow and recanalization following initial presentation of thrombosis. Stable interstitial circulation without significant stenosis. 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 There is decreasing restricted diffusion and increasing loss of volume characteristic of a subacute to chronic infarct. No evidence of acute infarct, acute hemorrhage mass or edema. Ernesto Kulkarni MD Head CT 01/16/16 0000 Signed Impressions: Service Date/Time: Saturday, January 16, 2016 10:51 - CONCLUSION: No extensive low density in the brainstem colin more prominent in the right the left extending into the right middle cerebellar peduncle consistent with brainstem infarct nonhemorrhagic acute Wellington West MD Neck Magnetic Resonance Angiography 12/22/15 1445 Signed Impressions: Service Date/Time: Tuesday, December 22, 2015 09:22 - CONCLUSION: Variant origin of the left vertebral artery from the aortic arch. No evidence of carotid stenosis. Glen Zamora MD Head/Brain Mag Res Venography 12/22/15 0000 Signed Impressions: Service Date/Time: Tuesday, December 22, 2015 09:22 - CONCLUSION: Normal MRV. Jonel Jones Jr., MD Physical Exam GENERAL: sedated, , on vent NAD SKIN: Warm to touch and dry. No generalized rash Sacrad wound is small about 5 cm, but very deep also 4 cm, with rough bone palpable, tissues are beefy red, no necrotic srosang drainage, odorless no cellulitis around it HEENT: [place] conjunctiva. . No scleral icterus. No injection or drainage. Mucous membranes pink and moist. NECK: Tracheostomy site looks okay. + blood tinged secretions in tubing seen CARDIOVASCULAR: Regular rate and rhythm. No murmur or rub. RESPIRATORY: diffuse b/l rhonchi ABDOMEN: Soft, obese, non-tender ( no reaction to palpation), mildly y distended. No guarding. No organomegaly. PEG site looks okay. EXTREMITIES: No clubbing, cyanosis, or edema. No joint effusions. Well perfused NEUROLOGICAL: sedated, unresponsive; not following commnads PSYCH: Unable to assess ; lopez in place, urine looks fairly clear LINE: Peripheral IV with no evidence of infection Assessment & Plan Remarks IMPRESSION New fever, clinically sepsis (fever, lactic acidosis, hpotension , acute on chronic resp failure ? source; suspe cted PNA and /or UTI - though CXR is negative, hypoxia and secretions sugg of new PNA - UTI w pyuria H/o resistant PSAE CVA, with significant neurologic sequela Hx NHL Acute VDRF Pt is critically ill and is untable RECOMMENDATION cont cefepime, vanco add flagyl add micafungin fu blood, urine and sputum clx fu CT abd/pel/chest results kenna RN kenna pierson [facility] Jan 09, 2017 17:07
[2017-01-09 17:08] LABS: PLATELET ESTIMATE SMEAR NORMAL (NORMAL); PLATELET MORPHOLOGY NORMAL (NORMAL); SCAN/DIFF FINAL DIFF MANUAL
[2017-01-09 17:15] LABS: BACTERIA, URINE MANY /hpf; BLOOD, URINE MOD (NEG); GLUCOSE,URINE NEG (NEG); KETONE, URINE NEG (NEG); MUCUS URINE FEW /lpf (OCC); NITRITE,URINE NEG (NEG); SQUAMOUS EPITHELIAL CELL URINE 1 /hpf (0-5); URINE COLOR LIGHT-YELLOW (YELLW/STRAW)
[2017-01-09 17:17] LABS: COMMENT (UR) CATH-CULTURE IND; CULTURE IF INDICATED CATH CULTURE IND
[2017-01-09 17:53] LABS: LACTIC ACID GHOST NOT REPORTABLE
--- NOTE | 2017-01-09 18:29 | RADRPT ---
EXAM DATE/TIME: 01/09/2017 17:49 [facility] COMPARISON: CHEST SINGLE AP, January 09, 2017, 13:13. INDICATIONS : Evaluate for pulmonary embolus, history of lymphoma. IV CONTRAST: 71 cc Omnipaque 350 (iohexol) IV RADIATION DOSE: 23.31 CTDIvol (mGy) MEDICAL HISTORY : Cardiovascular disease. Hypertension. Diabetes mellitus type 1.A-fib, posterior brain tumor, lymphoma SURGICAL HISTORY : Non-responsive. ENCOUNTER: Subsequent ACUITY: 3 weeks PAIN SCALE: Non-responsive LOCATION: upper quadrant TECHNIQUE: Volumetric scanning of the chest was performed using a pulmonary embolism protocol MIP images were re constructed. Using automated exposure control and adjustment of the mA and/or kV according to patien t size, radiation dose was kept as low as reasonably achievable to obtain optimal diagnostic quality images. DICOM format image data is available electronically for review and comparison. FINDINGS: PULMONARY ARTERIES: No filling defects are seen in the pulmonary arteries through the segmental level. LUNGS: There is no pneumothorax . There are patchy areas of consolidation in both lung bases right greater t chavis left with air bronchograms. There is a small noncalcified pulmonary nodule in the right middle lo be measuring approximately 5 mm. There is a second pleural based nodule in the posterior right upper lobe measuring approximately 4 mm. No concerning pulmonary nodule is visualized. PLEURAE: There is no pleural thickening or pleural effusion. MEDIASTINUM: There is good visualization of the great vessels of the middle mediastinum. No evidence of mediastin al or hilar adenopathy/mass. A tracheostomy tube is present. There is no pericardial effusion. MUSCULOSKELETAL: Within normal limits for patient age. MISCELLANEOUS: The visualized upper abdominal organs demonstrate no acute abnormality. There is diffuse hepatic stea tosis of the liver. CONCLUSION: 1. No evidence of pulmonary emboli. 2. Patchy consolidation in both posterior lower lobes right greater than left. This could represent p neumonia. 3. 2 small noncalcified pulmonary nodules which are nonspecific finding. Short-term CT followup is re commended beginning in 6 months with a noncontrast outpatient CT. Gerald Mukherjee MD on January 09, 2017 at 18:23 Board Certified Radiologist. This report was verified electronically.
[2017-01-09] MEDS: VANCOMYCIN INJ 1,250 MG in SODIUM CHLOR 0.9% 250 ML INJ 250 ML IV SCH (18:31)
--- NOTE | 2017-01-09 19:02 | RADRPT ---
EXAM DATE/TIME: 01/09/2017 17:43 [facility] COMPARISON: CT BRAIN W/O CONTRAST, January 16, 2016, 10:51. INDICATIONS : Altered mental status. History of multiple prior mainstem and occipital lobe infarcts.. RADIATION DOSE: 61.01 CTDIvol (mGy) MEDICAL HISTORY : Cardiovascular disease. Hypertension. Diabetes mellitus type 1.A-fib, posterior brain tumor, lymphoma SURGICAL HISTORY : Non-responsive. ENCOUNTER: Subsequent ACUITY: 3 weeks PAIN SCALE: Non-responsive LOCATION: cranial TECHNIQUE: Multiple contiguous axial images were obtained of the head. Using automated exposure control and adj ustment of the mA and/or kV according to patient size, radiation dose was kept as low as reasonably a chievable to obtain optimal diagnostic quality images. DICOM format image data is available electro nically for review and comparison. FINDINGS: The previously noted right sided brain stem infarct is again noted and is more chronic in appear ance with decreased attenuation and encephalomalacia. The bilateral occipital lobe infarcts are again noted and appears more mature. There is no acute hemorrhage, mass effect or midline shift. There is diffuse moderate atrophic change. The ventricular system is stable in appearance. The cerebellum is u nremarkable. There is mucosal thickening in the ethmoidal air cells. CONCLUSION: 1. No acute hemorrhage or mass effect. 2. 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 3. Atrophy. Gerald Mukherjee MD on January 09, 2017 at 18:55 Board Certified Radiologist. This report was verified electronically.
[2017-01-09] MEDS: CEFEPIME INJ 1,000 MG in SODIUM CHLORIDE 0.9% INJ 100 ML IV SCH ×2 (20:12→23:38)
[2017-01-09] MEDS: PARoxetine HCL SUSP 20 MG/10 ML UDC PEG SCH (21:05)
[2017-01-09] MEDS: INSULIN NovoLIN REGULAR SUPPLEMENTAL SCALE SQ SCH (22:00)
[2017-01-10] VITALS (26 sets, daily range): BP systolic 85–125; BP diastolic 53–77; PULSE 87–128; RESP 14–28; TEMP 98.8–102.5; O2SAT 86–100
[2017-01-10] MEDS: metroNIDAZOLE 500 MG INJ 100 ML IV SCH ×4 (01:24→23:35)
[2017-01-10] MEDS: MICAFUNGIN INJ 150 MG in SODIUM CHLORIDE 0.9% INJ 100 ML IV SCH (02:56)
[2017-01-10] MEDS: SODIUM CHLOR 0.9% 1000 ML INJ 1,000 ML IV SCH ×3 (02:56→19:38)
[2017-01-10] MEDS: RESP: ALBUTEROL 2.5 MG/IPRATROPIUM 0.5 MG NEB (SCH) NEB ×4 (03:45→20:09)
[2017-01-10] MEDS: INSULIN NovoLIN REGULAR SUPPLEMENTAL SCALE SQ SCH ×4 (03:47→21:31)
[2017-01-10] MEDS: VANCOMYCIN INJ 1,250 MG in SODIUM CHLOR 0.9% 250 ML INJ 250 ML IV SCH ×2 (05:18→18:31)
[2017-01-10] MEDS: HEPARIN SODIUM - SQ 10,000 UNITS/ML VIAL SQ SCH ×3 (05:19→21:31)
[2017-01-10] MEDS: ACETIC ACID 0.25% SOLN 1000 ML IRR BTL IRRIGATION SCH ×3 (05:19→21:34)
[2017-01-10 05:51] LABS: AUTOMATED NEUTROPHIL # 11.6 TH/MM3 (1.8-7.7); BASOPHIL # 0.1 TH/MM3 (0-0.2); BASOPHIL % 0.5 % (0.0-2.0); EOSINOPHIL # 0.1 TH/MM3 (0-0.4); HEMATOCRIT 29.5 % (39.0-51.0); HEMO FLAGS DIFF FINAL; LYMPH % 5.8 % (9.0-44.0); LYMPHOCYTE # 0.8 TH/MM3 (1.0-4.8); MEAN CELL VOLUME 71.3 FL (80.0-100.0); MEAN CORPUSCULAR HEMOGLOBIN 21.5 PG (27.0-34.0); MEAN CORPUSCULAR HGB CONC 30.2 % (32.0-36.0); MONO % 3.7 % (0.0-8.0); PLATELET COUNT 262 TH/MM3 (150-450); RED BLOOD COUNT 4.14 MIL/MM3 (4.50-5.90); RED CELL DISTRIBUTION WIDTH 19.6 % (11.6-17.2)
[2017-01-10 06:28] LABS: BICARBONATE 23.2 MEQ/L (21.0-32.0); POTASSIUM 3.9 MEQ/L (3.5-5.1)
--- NOTE | 2017-01-10 07:31 | HHI.CCPN ---
Subjective Remarks/Hospital Course 59year-old male with past medical history of paroxysmal atrial fibrillation, hypertension, stage IIIa non-Hodgkin's lymphoma (s/p chemotherapy with Rituxan, [facility] 2014) presented to [facility] emergency department on 12/20 with altered mental status. When he woke up of 4 o'clock, the patient had some right facial droop associated with headaches. CT scan of the brain showed no focal or acute intracranial hemorrhage. However, there is an new area of decreased density in the left occipital lobe, suggestive of recent non hemorrhagic infarction and a decreased density in the previously noted right occipital lobe which had increased in size. The patient was recently admitted on December 06 with similar presentation and he had a right occipital juan jose hole brain biopsy done by Dr. Marin on December 13. The pathology results showed acute infarction without evidence of lymphoma. On this admission, the patient became obtunded, had sonorous respirations and can would not follow any commands. He was subsequently intubated by the emergency department physician. MRI of the brain was obtained which showed a new area of restricted diffusion within the left occipital lobe suggesting acute infarction. EKG on arrival showed A-fib with RVR at rate of 114 beats per minute. Pertinent ICU Coarse: 12/21: No events overnight. Sedated with Diprivan and intubated. For MRA brain, carotids and MRV brain today . 12/22: Patient remains intubated, off sedation. 12/23: No events overnight. Remains off sedation. Withdraws to pain. 12/24: Remains intubated, on no sedation. For repeat MRI brain today 12/25: Tolerated PSV for 4-5 hour yesterday. 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 12/26: Tolerating PSV. Opens eyes to voice, reportedly has been blinking to command but isn't doing so currently even when family encouraging him. 12/27: Continues to tolerate PSV. Follows commands via ocular movements. Weak withdraw LUE noxious stimuli. 12/28: Tolerating PSV 04/24. Family desires trach - warfarin placed on hold. MRI today per neurology. 12/29: Tolerating tube feeds. INR 2.2. Sputum culture with pansensitive klebsiella. 12/30: No neuro change. Continues to tolerate PSV 12/31: General surgery and GI planning trach / PEG tomorrow. Has low grade temp 100.2. 01/01: On full vent support. No significant neurologic changes. s/p bedside Trach and PEG. 01/02: Resuming PSV trials. Restart tube feeds. 01/03; On continuous trach collar since yesterday evening. No significant secretions. 01/04 No events overnight. Patient has been on TP's x 2 days currently on 28% FIO2. T: 100.5 last night. 01/09 Reconsult: Halicat was called as patient was found hypoxic with sats 70%, tachycardic HR 140's patient was subsequently transferred to [facility] and placed back on ventilator. Trach changed to size #6 XLT. Patient was found to have fever with T 102.1. CXR this afternoon showed mild chronic parenchymal changes. He was noted to have some bloody secretions from trach last 2 days. 01/10 Patient Patient is sedated with Diprivan and on ventilator via trach. Had T :102.5 at midnight. CTA chest last night showed no PE, CT brain no acute findings. Objective Vital Signs Date Time Temp Pulse Resp B/P Pulse Ox O2 Delivery O2 Flow Rate FiO2 01/10/17 04:25 97 40 01/10/17 04:00 98.8 116 28 88/61 01/09/17 15:05 15.00 01/09/17 09:59 T-piece Intake and Output 01/09/17 01/09/17 01/10/17 08:00 16:00 00:00 Intake Total 1168 ml Output Total 200 ml 1700 ml Balance -200 ml -532 ml Result Diagram: 01/10/17 0458 01/10/17 0458 Other Results Laboratory Tests Test 01/09/17 01/09/17 01/09/17 01/09/17 15:45 15:46 17:00 20:13 Urine Color LIGHT-YELLOW Urine Turbidity HAZY Urine pH 6.0 Urine Specific [place] 1.009 Urine Protein 30 mg/dL Urine Glucose (UA) NEG mg/dL Urine Ketones NEG mg/dL Urine Occult Blood MOD Urine Nitrite NEG Urine Bilirubin NEG Urine Urobilinogen LESS THAN 2.0 MG/DL Urine Leukocyte Esterase LARGE Urine RBC 30 /hpf Urine WBC /hpf Urine WBC Clumps RARE Urine Squamous Epithelial 1 /hpf Cells Urine Amorphous Sediment RARE Urine Bacteria MANY /hpf Urine Mucus FEW /lpf Microscopic Urinalysis Comment CATH-CULTURE IND White Blood Count 12.3 TH/MM3 Red Blood Count 4.60 MIL/MM3 Hemoglobin 10.0 GM/DL Hematocrit 32.8 % Mean Corpuscular Volume 71.2 FL Mean Corpuscular Hemoglobin 21.7 PG Mean Corpuscular Hemoglobin 30.4 % Concent Red Cell Distribution Width 19.9 % Platelet Count 331 TH/MM3 Mean Platelet Volume 8.4 FL Neutrophils (%) (Auto) 92.3 % Lymphocytes (%) (Auto) 4.4 % Monocytes (%) (Auto) 2.2 % Eosinophils (%) (Auto) 0.7 % Basophils (%) (Auto) 0.4 % Neutrophils # (Auto) 11.4 TH/MM3 Lymphocytes # (Auto) 0.5 TH/MM3 Monocytes # (Auto) 0.3 TH/MM3 Eosinophils # (Auto) 0.1 TH/MM3 Basophils # (Auto) 0.1 TH/MM3 CBC Comment AUTO DIFF Differential Total Cells 100 Counted Neutrophils % (Manual) 83 % Band Neutrophils % 6 % Lymphocytes % 4 % Monocytes % 4 % Eosinophils % 2 % Neutrophils # (Manual) 11.1 TH/MM3 Myelocytes 1 % Differential Comment FINAL DIFF MANUAL Platelet Estimate NORMAL Platelet Morphology Comment NORMAL Sodium Level 135 MEQ/L Potassium Level 4.8 MEQ/L Chloride Level 101 MEQ/L Carbon Dioxide Level 22.4 MEQ/L Anion Gap 12 MEQ/L Blood Urea Nitrogen 9 MG/DL Creatinine 0.84 MG/DL Estimat Glomerular Filtration 93 ML/MIN Rate Random Glucose 139 MG/DL Lactic Acid Level 4.1 mmol/L 5.7 mmol/L Calcium Level 9.0 MG/DL Phosphorus Level 3.0 MG/DL Magnesium Level 2.0 MG/DL Total Bilirubin 0.4 MG/DL Aspartate Amino Transf 10 U/L (AST/SGOT) Alanine Aminotransferase 12 U/L (ALT/SGPT) Alkaline Phosphatase 84 U/L Total Protein 8.9 GM/DL Albumin 2.5 GM/DL Blood Gas Puncture Site LT RADIAL Blood Gas Patient Temperature 98.6 Blood Gas HCO3 21 mmol/L Blood Gas Base Excess -3.2 mmol/L Blood Gas Oxygen Saturation 95 % Arterial Blood pH 7.42 Arterial Blood Partial 33 mmHg Pressure CO2 Arterial Blood Partial 99 mmHg Pressure O2 Arterial Blood Oxygen Content 12.4 Vol % Arterial Blood 1.7 % Carboxyhemoglobin Arterial Blood Methemoglobin 1.0 % Blood Gas Hemoglobin 9.1 G/DL Oxygen Delivery Device VENTILATOR Blood Gas Ventilator Setting PRVC/14/500/0.8/+5 Blood Gas Inspired Oxygen 50 % Test 01/10/17 04:58 White Blood Count 13.0 TH/MM3 Red Blood Count 4.14 MIL/MM3 Hemoglobin 8.9 GM/DL Hematocrit 29.5 % Mean Corpuscular Volume 71.3 FL Mean Corpuscular Hemoglobin 21.5 PG Mean Corpuscular Hemoglobin 30.2 % Concent Red Cell Distribution Width 19.6 % Platelet Count 262 TH/MM3 Mean Platelet Volume 8.5 FL Neutrophils (%) (Auto) 89.0 % Lymphocytes (%) (Auto) 5.8 % Monocytes (%) (Auto) 3.7 % Eosinophils (%) (Auto) 1.0 % Basophils (%) (Auto) 0.5 % Neutrophils # (Auto) 11.6 TH/MM3 Lymphocytes # (Auto) 0.8 TH/MM3 Monocytes # (Auto) 0.5 TH/MM3 Eosinophils # (Auto) 0.1 TH/MM3 Basophils # (Auto) 0.1 TH/MM3 CBC Comment DIFF FINAL Differential Comment Sodium Level 138 MEQ/L Potassium Level 3.9 MEQ/L Chloride Level 107 MEQ/L Carbon Dioxide Level 23.2 MEQ/L Anion Gap 8 MEQ/L Blood Urea Nitrogen 8 MG/DL Creatinine 0.72 MG/DL Estimat Glomerular Filtration 111 ML/MIN Rate Random Glucose 135 MG/DL Calcium Level 8.3 MG/DL Imaging Last Impressions Head CT 01/09/17 0000 Signed Impressions: Service Date/Time: December 17:43 - CONCLUSION: 1. No acute hemorrhage or mass effect. 2. 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 3. Atrophy. Gerald Mukherjee MD Chest X-Ray 01/09/17 0000 Signed Impressions: Service Date/Time: December 13:13 - CONCLUSION: 1. Mild chronic appearing changes within the pulmonary parenchyma. Tracheostomy tube in good position. Stable compared to prior. Moises Ramírez MD CT Angiography 01/09/17 0000 Signed Impressions: Service Date/Time: December 17:49 - CONCLUSION: 1. No evidence of pulmonary emboli. 2. Patchy consolidation in both posterior lower lobes right greater than left. This could represent pneumonia. 3. 2 small noncalcified pulmonary nodules which are nonspecific finding. Short-term CT followup is recommended beginning in 6 months with a noncontrast outpatient CT. Gerald Mukherjee MD Tube Change 12/31/16 0000 Signed Impressions: Service Date/Time: Saturday, December 31, 2016 16:35 - CONCLUSION: Uncomplicated gastrojejunostomy tube exchange as above. Moises Ramírez MD Tube Check 12/04/16 0000 Signed Impressions: Service Date/Time: Sunday, December 04, 2016 17:58 - CONCLUSION: Uncomplicated tube injection as above. the tube is in good position and functions normally. Moises Ramírez MD Abdomen X-Ray 08/31/16 0000 Signed Impressions: Service Date/Time: Wednesday, August 31, 2016 16:36 - CONCLUSION: 1. No acute findings. Mild constipation. Durga Dotson MD Abdomen/Pelvis CT 04/12/16 0000 Signed Impressions: Service Date/Time: Tuesday, April 12, 2016 20:52 - CONCLUSION: 1. 6.4 cm necrotic mass or abscess in the soft tissues posteriorly just below the sacrum associated with some bony destructive change of the lower most sacrum and coccyx with inflammatory changes extending into the ischiorectal fossa and into the presacral retroperitoneum predominantly on the left side. There is associated fairly marked mural thickening of the anal verge and rectum. 2. There is gastrostomy and Arevalo catheter present. Stable abdominal aortic aneurysm. Durga Dotson MD Head Magnetic Resonance Angiography 03/05/16 0000 Signed Impressions: Service Date/Time: Saturday, March 05, 2016 09:26 - CONCLUSION: Persistent high-grade subtotal occlusive stenotic lesions in the distal right vertebral artery and proximal basilar artery with significant improvement in flow and recanalization following initial presentation of thrombosis. Stable interstitial circulation without significant stenosis. 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 There is decreasing restricted diffusion and increasing loss of volume characteristic of a subacute to chronic infarct. No evidence of acute infarct, acute hemorrhage mass or edema. Ernesto Kulkarni MD Neck Magnetic Resonance Angiography 12/22/15 1445 Signed Impressions: Service Date/Time: Tuesday, December 22, 2015 09:22 - CONCLUSION: Variant origin of the left vertebral artery from the aortic arch. No evidence of carotid stenosis. Glen Zamora MD Head/Brain Mag Res Venography 12/22/15 0000 Signed Impressions: Service Date/Time: Tuesday, December 22, 2015 09:22 - CONCLUSION: Normal MRV. Jonel Jones Jr., MD Objective Remarks GENERAL: Elderly male lying in bed and breathing spontaneously via tracheostomy. unlabored. SKIN: Warm and dry, well perfused HEENT: Normocephalic. No scleral icterus. Right facial droop NECK: Trachea midline. No JVD. Tracheostomy site intact CARDIOVASCULAR: Regular rate and rhythm without any appreciable murmurs RESPIRATORY: Coarse breath sounds anteriorly with good air entry bilaterally. not tachypneic. unlabored. equal chest rise. spo2 100% on fio2 100%. I turned his fio2 down to 28% and monitored the patient for 10 minutes at his bedside, and his spo2 remained 99%. I suctioned a moderate amount of white secretions. GASTROINTESTINAL: Abdomen soft, nondistended. Bowel sounds present. PEG site intact with a small hole in his PEG tube. MUSCULOSKELETAL: Palpable pulses with warm periphery. No edema NEURO: + spontaneous eye openings Procedures 01/02/16 PEG placement 01/02/16 tracheostomy 07/22/2016 Wide excision of sacral skin wound, biopsy of the cavity lining and debridement. 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 Change Diprivan to Fentanyl infusion for sedation On Keppra 500mg BID. 01/10: CT brain: No acute hemorrhage or mass effect. 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 Atrophy. Last MRI brain 02/2016: Evolving brainstem and bilateral occipital lobe infarcts with evidence of subacute hemorrhagic products. There is decreasing restricted diffusion and increasing loss of volume characteristic of a subacute to chronic infarct. No evidence of acute infarct, acute hemorrhage mass or edema. Pulm: Continue with vent support keep sat >92% Bronchodilators, ICU vent bundle. Trach changed to size #6 XLT on 01/09 01/09 CTA chest: No PE, + pneumonia CV: Monitor HR and BP keep MAP>65mmHg. On ASA 325mg daily Serial lactic acid trending, Continue with NS@125ml/hr, Give NS 1Liter x1 : Monitor renal function, I/O's, electrolytes replacement per protocol. on NS@125ml/hr GI: On Protonix 40mg Q12, tube feeds- start Glucerna 1.5 with goal rate 45ml/hr ID: Continue abx ( Cefepime, Vanco, Flagyl, Micafungin) Pancultured ( Blood, sputum, urine) 01/09 Check strep pneumonia and Legionella urinary Ag, ID is following Monitor for signs of infections ( Fever, WBC) Heme: Monitor CBC Endo: On SSI (low scale) for glycemic control GI prophylaxis with Protonix 40mg Q12 DVT prophylaxis with SCD and Heparin SQ Level 3 Wil Langston MD Jan 10, 2017 07:31
[2017-01-10] MEDS: ASPIRIN 325 MG TAB TUBE SCH (08:34)
[2017-01-10] MEDS: CEFEPIME INJ 1,000 MG in SODIUM CHLORIDE 0.9% INJ 100 ML IV SCH ×3 (08:35→23:35)
[2017-01-10] MEDS: MAGNESIUM HYDROXIDE SUSP 30 ML CUP PEG SCH (08:35)
[2017-01-10] MEDS: LACTULOSE SYRUP 20 GM/30 ML CUP PEG SCH (08:35)
[2017-01-10] MEDS: levETIRAcetam 500 MG/5 ML UDC TUBE SCH ×2 (08:35→19:35)
[2017-01-10] MEDS: NYSTATIN 100,000 U/GM PWD 15 GM BTL TOPICAL SCH ×2 (08:52→19:37)
[2017-01-10] MEDS: DILTIAZEM HCL 30 MG TAB PEG SCH ×3 (08:52→19:38)
[2017-01-10] MEDS: ARTIFICIAL TEARS OPTH SOLN 15 ML BTL EACH EYE SCH ×2 (08:52→19:39)
[2017-01-10] MEDS: BACITRACIN TOP OINT 15 GM TUBE TOP SCH ×2 (08:52→19:37)
[2017-01-10] MEDS: SODIUM CHLORIDE 0.65% NASAL SPRAY 45 ML BTL NASAL SCH ×2 (08:58→19:36)
[2017-01-10] MEDS: PANTOPRAZOLE SODIUM 40 MG VIAL IV PUSH SCH ×2 (12:08→23:35)
--- NOTE | 2017-01-10 13:20 | PD.WCN.NOT ---
Wound Consult Description: Sacrum Communicated with: CHAPITO Boucher Recommendation: No new recommendations at this time. Wound Care team to follow up on patient next week. Additional Information: Attempted to see patient on [facility]. CHAPITO Boucher and patient family member speaking in patients room. Later, spoke with CHAPITO Boucher regarding patient and wound after she had a discussion with family. Dressing change was completed this am by CHAPITO Boucher who states that the wound was cleansed thoroughly and dressing was placed. Ting Richards [facility] Jan 10, 2017 13:20
[2017-01-10] MEDS: SENNOSIDES SYRUP 8.8 MG/5 ML CUP PEG SCH (16:09)
--- NOTE | 2017-01-10 16:20 | EKG ---
Date Performed: 01/09/2017 Time Performed: 15:15:58 PTAGE: 61 years EKG: SINUS TACHYCARDIA, POSSIBLE ATRIAL FLUTTER PATTERN CONSISTENT WITH PULMONARY DISEASE INFERI OR MYOCARDIAL INFARCTION , PROBABLY OLD ABNORMAL ECG PREVIOUS TRACING : 01/10/2016 11.29 Compared to prior tracing no significant change DOCTOR: Mere Arias Interpretating Date/Time 01/10/2017 16:18:52
--- NOTE | 2017-01-10 16:54 | HHI.PR ---
Subjective Remarks ass transferred to ICU over night low BP , better with hydration positive blood culture CTA NO pe , bibasilar atelectatic change possible PNA , Objective Vital Signs Date Time Temp Pulse Resp B/P Pulse Ox O2 Delivery O2 Flow Rate FiO2 01/10/17 16:00 99.8 01/10/17 16:00 45 01/10/17 14:15 100 45 01/10/17 13:30 97 16 88/55 99 01/10/17 13:00 97 16 85/53 99 01/10/17 12:30 100 16 90/55 99 01/10/17 12:00 45 01/10/17 12:00 106 19 91/63 95 01/10/17 11:30 106 18 102/65 95 01/10/17 11:18 93 45 01/10/17 11:00 109 21 109/71 96 01/10/17 10:30 108 27 125/77 100 01/10/17 10:00 103 20 107/63 99 01/10/17 09:30 104 18 112/67 99 01/10/17 09:00 102 27 117/65 86 01/10/17 08:30 99 14 103/64 100 01/10/17 08:00 104 22 101/62 100 01/10/17 08:00 45 01/10/17 07:41 98 45 01/10/17 04:25 97 40 01/10/17 04:00 45 01/10/17 04:00 98.8 116 28 88/61 98 01/10/17 01:14 100 45 01/10/17 00:00 102.5 128 20 89/62 98 01/10/17 00:00 45 01/09/17 22:28 99 45 01/09/17 22:00 129 01/09/17 20:00 117 01/09/17 20:00 50 01/09/17 20:00 98.9 117 18 94/68 97 01/09/17 19:38 99 50 01/09/17 18:35 100 50 01/09/17 18:00 112 01/09/17 17:35 100 I/O 01/09/17 01/09/17 01/09/17 01/10/17 01/10/17 01/10/17 07:00 15:00 23:00 07:00 15:00 23:00 Intake Total 1168 ml 859 ml 2356 ml Output Total 200 ml 1700 ml 550 ml 950 ml Balance -200 ml -532 ml 309 ml 1406 ml IV Total 1168 ml 859 ml 2024 ml Tube Feeding 212 ml Other 120 ml Output Urine Total 200 ml 1300 ml 550 ml 950 ml Gastric Drainage Total 400 ml Bladder Scan Volume Amount 999 ml # Bowel Movements 1 1 0 0 2 Result Diagram: 01/10/17 0458 01/10/17 0458 Procedures 01/02/16 PEG placement 01/02/16 tracheostomy 07/22/2016 Wide excision of sacral skin wound, biopsy of the cavity lining and debridement. PEG tube replacement 07/29/16 Objective Remarks Laboratory Tests Test 01/05/17 01/06/17 08:35 08:41 Red Blood Count 4.43 MIL/MM3 (4.50-5.90) Hemoglobin 9.9 GM/DL (13.0-17.0) Hematocrit 32.0 % (39.0-51.0) Mean Corpuscular Volume 72.1 FL (80.0-100.0) Mean Corpuscular Hemoglobin 22.3 PG (27.0-34.0) Mean Corpuscular Hemoglobin 30.9 % Concent (32.0-36.0) Red Cell Distribution Width 19.9 % (11.6-17.2) Sodium Level 134 MEQ/L 133 MEQ/L (136-145) (136-145) Random Glucose 136 MG/DL 132 MG/DL (74-106) (74-106) Creatinine 0.59 MG/DL (0.60-1.30) GENERAL: SKIN: Warm and dry. HEAD: Atraumatic. Normocephalic. EYES: Pupils equal and round. No scleral icterus. No injection or drainage. ENT: No nasal bleeding or discharge. Mucous membranes pink and moist. NECK: Trachea midline. No JVD. TRACH. [place] CARDIOVASCULAR: Regular rate and rhythm. RESPIRATORY: No accessory muscle use. Clear to auscultation. Breath sounds equal bilaterally. GASTROINTESTINAL: Abdomen soft, non-tender, nondistended. Hepatic and splenic margins not palpable. MUSCULOSKELETAL: Extremities without clubbing, cyanosis, or edema. No obvious deformities. NEUROLOGICAL: Awake and alert. No obvious cranial nerve deficits. Motor grossly within normal limits. Five out of 5 muscle strength in the arms and legs. Normal speech. PSYCHIATRIC: Appropriate mood and affect; insight and judgment normal. Medications and IVs GENERAL: SKIN: Warm and dry. HEAD: Atraumatic. Normocephalic. EYES: Pupils equal and round. No scleral icterus. No injection or drainage. ENT: No nasal bleeding or discharge. Mucous membranes pink and moist. NECK: Trachea midline. No JVD. CARDIOVASCULAR: Regular rate and rhythm. RESPIRATORY: No accessory muscle use. Clear to auscultation. Breath sounds equal bilaterally. GASTROINTESTINAL: Abdomen soft, non-tender, nondistended. Hepatic and splenic margins not palpable. MUSCULOSKELETAL: Extremities without clubbing, cyanosis, or edema. No obvious deformities. NEUROLOGICAL: Awake and alert. No obvious cranial nerve deficits. Motor grossly within normal limits. Five out of 5 muscle strength in the arms and legs. Normal speech. PSYCHIATRIC: Appropriate mood and affect; insight and judgment normal. Assessment and Plan Assessment and Plan impression respiratory failure CVA S/P TRACHEOSTOMY SEPSIS PLAN O2 NEEDED PULM. TOILET ANTIBIOTICS PER ID Dewart poor Brandon Taylor MD Jan 10, 2017 16:54
[2017-01-10] MEDS: PARoxetine HCL SUSP 20 MG/10 ML UDC PEG SCH (18:30)
--- NOTE | 2017-01-10 19:32 | HHI.IDPN ---
Subjective Subjective Remarks + low grade fever, Remains on vent copious secretions normal BM off pressors BC with GPC Urine c GNB, sputum also with GNB Antibiotics cefepime vanco flagyl micafungin Lines Peripheral IV Past Medical History Hypertension. Stage III non-Hodgkin's lymphoma. Diabetes mellitus. Paroxysmal atrial fibrillation. Brain biopsy in Nov, 2015. History of left arm surgery. 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 Vital Signs Date Time Temp Pulse Resp B/P Pulse Ox O2 Delivery O2 Flow Rate FiO2 01/10/17 17:30 100 40 01/10/17 16:00 99.8 01/10/17 16:00 45 01/10/17 14:15 100 45 01/10/17 13:30 97 16 88/55 99 01/10/17 13:00 97 16 85/53 99 01/10/17 12:30 100 16 90/55 99 01/10/17 12:00 45 01/10/17 12:00 106 19 91/63 95 01/10/17 11:30 106 18 102/65 95 01/10/17 11:18 93 45 01/10/17 11:00 109 21 109/71 96 01/10/17 10:30 108 27 125/77 100 01/10/17 10:00 103 20 107/63 99 01/10/17 09:30 104 18 112/67 99 01/10/17 09:00 102 27 117/65 86 01/10/17 08:30 99 14 103/64 100 01/10/17 08:00 104 22 101/62 100 01/10/17 08:00 45 01/10/17 07:41 98 45 01/10/17 04:25 97 40 01/10/17 04:00 45 01/10/17 04:00 98.8 116 28 88/61 98 01/10/17 01:14 100 45 01/10/17 00:00 102.5 128 20 89/62 98 01/10/17 00:00 45 01/09/17 22:28 99 45 01/09/17 22:00 129 01/09/17 20:00 117 01/09/17 20:00 50 01/09/17 20:00 98.9 117 18 94/68 97 01/09/17 19:38 99 50 01/09/17 01/09/17 01/10/17 15:00 23:00 07:00 Intake Total 1168 ml 859 ml Output Total 1700 ml 550 ml Balance -532 ml 309 ml IV Total 1168 ml 859 ml Output Urine Total 1300 ml 550 ml Gastric Drainage Total 400 ml Bladder Scan Volume Amount 999 ml # Bowel Movements 1 0 0 . Laboratory Tests Test 01/09/17 01/10/17 15:46 04:58 White Blood Count 12.3 TH/MM3 13.0 TH/MM3 Red Blood Count 4.60 MIL/MM3 4.14 MIL/MM3 Hemoglobin 10.0 GM/DL 8.9 GM/DL Hematocrit 32.8 % 29.5 % Mean Corpuscular Volume 71.2 FL 71.3 FL Mean Corpuscular Hemoglobin 21.7 PG 21.5 PG Mean Corpuscular Hemoglobin 30.4 % 30.2 % Concent Red Cell Distribution Width 19.9 % 19.6 % Platelet Count 331 TH/MM3 262 TH/MM3 Mean Platelet Volume 8.4 FL 8.5 FL Neutrophils (%) (Auto) 92.3 % 89.0 % Lymphocytes (%) (Auto) 4.4 % 5.8 % Monocytes (%) (Auto) 2.2 % 3.7 % Eosinophils (%) (Auto) 0.7 % 1.0 % Basophils (%) (Auto) 0.4 % 0.5 % Neutrophils # (Auto) 11.4 TH/MM3 11.6 TH/MM3 Lymphocytes # (Auto) 0.5 TH/MM3 0.8 TH/MM3 Monocytes # (Auto) 0.3 TH/MM3 0.5 TH/MM3 Eosinophils # (Auto) 0.1 TH/MM3 0.1 TH/MM3 Basophils # (Auto) 0.1 TH/MM3 0.1 TH/MM3 CBC Comment AUTO DIFF DIFF FINAL Differential Total Cells 100 Counted Neutrophils % (Manual) 83 % Band Neutrophils % 6 % Lymphocytes % 4 % Monocytes % 4 % Eosinophils % 2 % Neutrophils # (Manual) 11.1 TH/MM3 Myelocytes 1 % Differential Comment FINAL DIFF MANUAL Platelet Estimate NORMAL Platelet Morphology Comment NORMAL Laboratory Tests Test 01/09/17 01/09/17 01/10/1717 15:46 20:13 04:58 10:55 Sodium Level 135 MEQ/L 138 MEQ/L Potassium Level 4.8 MEQ/L 3.9 MEQ/L Chloride Level 101 MEQ/L 107 MEQ/L Carbon Dioxide Level 22.4 MEQ/L 23.2 MEQ/L Anion Gap 12 MEQ/L 8 MEQ/L Blood Urea Nitrogen 9 MG/DL 8 MG/DL Creatinine 0.84 MG/DL 0.72 MG/DL Estimat Glomerular Filtration 93 ML/MIN 111 ML/MIN Rate Random Glucose 139 MG/DL 135 MG/DL Lactic Acid Level 4.1 mmol/L 5.7 mmol/L 2.7 mmol/L Calcium Level 9.0 MG/DL 8.3 MG/DL Phosphorus Level 3.0 MG/DL Magnesium Level 2.0 MG/DL Total Bilirubin 0.4 MG/DL Aspartate Amino Transf 10 U/L (AST/SGOT) Alanine Aminotransferase 12 U/L (ALT/SGPT) Alkaline Phosphatase 84 U/L Total Protein 8.9 GM/DL Albumin 2.5 GM/DL Microbiology Date/Time Procedure Status Source Growth 01/09/17 14:18 Gram Stain - Final Resulted Sputum Endotracheal 01/09/17 14:18 Sputum Culture - Preliminary Resulted Gram Negative Justo 01/09/17 15:43 Aerobic Blood Culture - Preliminary Resulted Blood Peripheral NO GROWTH IN 1 DAY 01/09/17 15:43 Anaerobic Blood Culture - Preliminary Resulted Blood Peripheral NO GROWTH IN 1 DAY 01/09/17 15:45 Urine Culture - Preliminary Resulted Urine Catheterized Urine Gram Negative Justo 01/09/17 15:46 Aerobic Blood Culture - Preliminary Resulted Blood Peripheral Gram Positive Cocci 01/09/17 15:46 Anaerobic Blood Culture - Preliminary Resulted Blood Peripheral NO GROWTH IN 1 DAY 01/10/17 08:45 Legionella Antigen - Final Complete Urine Catheterized Urine PRESUMPTIVE NEGATIVE FOR LEGIONELLA P... 01/10/17 08:45 Streptococcus pneumoniae Antigen (M - Final Complete Urine Catheterized Urine PRESUMPTIVE NEGATIVE FOR STREPTOCOCCU... 01/10/17 16:10 Aerobic Blood Culture Received Blood Peripheral Pending 01/10/17 16:10 Anaerobic Blood Culture Received Blood Peripheral Pending 01/10/17 16:15 Aerobic Blood Culture Received Blood Peripheral Pending 01/10/17 16:15 Anaerobic Blood Culture Received Blood Peripheral Pending Imaging Last Impressions Head CT 01/09/17 0000 Signed Impressions: Service Date/Time: December 17:43 - CONCLUSION: 1. No acute hemorrhage or mass effect. 2. 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 3. Atrophy. Gerald Mukherjee MD Chest X-Ray 01/09/17 0000 Signed Impressions: Service Date/Time: December 13:13 - CONCLUSION: 1. Mild chronic appearing changes within the pulmonary parenchyma. Tracheostomy tube in good position. Stable compared to prior. Moises Ramírez MD CT Angiography 01/09/17 0000 Signed Impressions: Service Date/Time: December 17:49 - CONCLUSION: 1. No evidence of pulmonary emboli. 2. Patchy consolidation in both posterior lower lobes right greater than left. This could represent pneumonia. 3. 2 small noncalcified pulmonary nodules which are nonspecific finding. Short-term CT followup is recommended beginning in 6 months with a noncontrast outpatient CT. Gerald Mukherjee MD Tube Change 12/31/16 0000 Signed Impressions: Service Date/Time: Saturday, December 31, 2016 16:35 - CONCLUSION: Uncomplicated gastrojejunostomy tube exchange as above. Moises Ramírez MD Tube Check 12/04/16 0000 Signed Impressions: Service Date/Time: Sunday, December 04, 2016 17:58 - CONCLUSION: Uncomplicated tube injection as above. the tube is in good position and functions normally. Moises Ramírez MD Abdomen X-Ray 08/31/16 0000 Signed Impressions: Service Date/Time: Wednesday, August 31, 2016 16:36 - CONCLUSION: 1. No acute findings. Mild constipation. Durga Dotson MD Abdomen/Pelvis CT 04/12/16 0000 Signed Impressions: Service Date/Time: Tuesday, April 12, 2016 20:52 - CONCLUSION: 1. 6.4 cm necrotic mass or abscess in the soft tissues posteriorly just below the sacrum associated with some bony destructive change of the lower most sacrum and coccyx with inflammatory changes extending into the ischiorectal fossa and into the presacral retroperitoneum predominantly on the left side. There is associated fairly marked mural thickening of the anal verge and rectum. 2. There is gastrostomy and Lopez catheter present. Stable abdominal aortic aneurysm. Durga Dotson MD Head Magnetic Resonance Angiography 03/05/16 0000 Signed Impressions: Service Date/Time: Saturday, March 05, 2016 09:26 - CONCLUSION: Persistent high-grade subtotal occlusive stenotic lesions in the distal right vertebral artery and proximal basilar artery with significant improvement in flow and recanalization following initial presentation of thrombosis. Stable interstitial circulation without significant stenosis. 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 There is decreasing restricted diffusion and increasing loss of volume characteristic of a subacute to chronic infarct. No evidence of acute infarct, acute hemorrhage mass or edema. Ernesto Kulkarni MD Neck Magnetic Resonance Angiography 12/22/15 1445 Signed Impressions: Service Date/Time: Tuesday, December 22, 2015 09:22 - CONCLUSION: Variant origin of the left vertebral artery from the aortic arch. No evidence of carotid stenosis. Glen Zamora MD Head/Brain Mag Res Venography 12/22/15 0000 Signed Impressions: Service Date/Time: Tuesday, December 22, 2015 09:22 - CONCLUSION: Normal MRV. Jonel Jones Jr., MD Physical Exam GENERAL: sedated, , on vent NAD SKIN: Warm to touch and dry. No generalized rash HEENT: [place] conjunctiva. . No scleral icterus. No injection or drainage. Mucous membranes pink and moist. NECK: Tracheostomy site looks okay. + blood tinged secretions in tubing seen CARDIOVASCULAR: Regular rate and rhythm. No murmur or rub. RESPIRATORY: b/l rhonchi ABDOMEN: Soft, obese, non-tender ( no reaction to palpation), mildly y distended. No guarding. No organomegaly. PEG site looks okay. EXTREMITIES: No clubbing, cyanosis, or edema. No joint effusions. Well perfused NEUROLOGICAL: sedated, unresponsive; not following commnads PSYCH: Unable to assess ; lopez in place, urine looks somewhat cloudy LINE: Peripheral IV with no evidence of infection Assessment & Plan Remarks IMPRESSION New fever, clinically sepsis (fever, lactic acidosis, hpotension , acute on chronic resp failure - new GNB PNA - new UTI , GNB Gram positive cocci bactermeia, low grade ? clin significance H/o resistant PSAE CVA, with significant neurologic sequela Hx NHL Acute VDRF Pt is critically ill but seems more stable RECOMMENDATION cont cefepime, vanco cont flagyl cont micafungin adjust abx per cultures fu blood, urine and sputum clx dw RN dw spouse at b/s Violetta Alvarez MD Jan 10, 2017 19:32
[2017-01-11] VITALS (28 sets, daily range): BP systolic 79–127; BP diastolic 52–77; PULSE 84–103; RESP 12–24; TEMP 98.6–99.4; O2SAT 91–100
[2017-01-11] MEDS: MICAFUNGIN INJ 150 MG in SODIUM CHLORIDE 0.9% INJ 100 ML IV SCH (01:43)
[2017-01-11] MEDS: SODIUM CHLOR 0.9% 1000 ML INJ 1,000 ML IV SCH (03:35)
[2017-01-11] MEDS: ACETIC ACID 0.25% SOLN 1000 ML IRR BTL IRRIGATION SCH ×3 (03:59→22:02)
[2017-01-11] MEDS: INSULIN NovoLIN REGULAR SUPPLEMENTAL SCALE SQ SCH ×4 (04:00→22:00)
[2017-01-11] MEDS: RESP: ALBUTEROL 2.5 MG/IPRATROPIUM 0.5 MG NEB (SCH) NEB ×4 (04:11→21:40)
[2017-01-11] MEDS: HEPARIN SODIUM - SQ 10,000 UNITS/ML VIAL SQ SCH ×3 (05:10→22:02)
[2017-01-11] MEDS: levETIRAcetam 500 MG/5 ML UDC TUBE SCH ×2 (08:25→20:15)
[2017-01-11] MEDS: MAGNESIUM HYDROXIDE SUSP 30 ML CUP PEG SCH (08:25)
[2017-01-11] MEDS: ASPIRIN 325 MG TAB TUBE SCH (08:25)
[2017-01-11] MEDS: CEFEPIME INJ 1,000 MG in SODIUM CHLORIDE 0.9% INJ 100 ML IV SCH ×2 (08:26→17:08)
[2017-01-11] MEDS: NYSTATIN 100,000 U/GM PWD 15 GM BTL TOPICAL SCH ×2 (08:27→20:14)
[2017-01-11] MEDS: VANCOMYCIN INJ 1,250 MG in SODIUM CHLOR 0.9% 250 ML INJ 250 ML IV SCH ×2 (08:27→18:50)
[2017-01-11] MEDS: metroNIDAZOLE 500 MG INJ 100 ML IV SCH ×2 (08:27→17:09)
[2017-01-11] MEDS: BACITRACIN TOP OINT 15 GM TUBE TOP SCH ×2 (08:28→22:02)
[2017-01-11] MEDS: SODIUM CHLORIDE 0.65% NASAL SPRAY 45 ML BTL NASAL SCH ×2 (08:28→20:14)
[2017-01-11] MEDS: ARTIFICIAL TEARS OPTH SOLN 15 ML BTL EACH EYE SCH ×2 (08:28→20:15)
--- NOTE | 2017-01-11 08:39 | HHI.CCPN ---
Subjective Remarks/Hospital Course 59year-old male with past medical history of paroxysmal atrial fibrillation, hypertension, stage IIIa non-Hodgkin's lymphoma (s/p chemotherapy with Rituxan, [facility] 2014) presented to [facility] emergency department on 12/20 with altered mental status. When he woke up of 4 o'clock, the patient had some right facial droop associated with headaches. CT scan of the brain showed no focal or acute intracranial hemorrhage. However, there is an new area of decreased density in the left occipital lobe, suggestive of recent non hemorrhagic infarction and a decreased density in the previously noted right occipital lobe which had increased in size. The patient was recently admitted on December 06 with similar presentation and he had a right occipital juan jose hole brain biopsy done by Dr. Marin on December 13. The pathology results showed acute infarction without evidence of lymphoma. On this admission, the patient became obtunded, had sonorous respirations and can would not follow any commands. He was subsequently intubated by the emergency department physician. MRI of the brain was obtained which showed a new area of restricted diffusion within the left occipital lobe suggesting acute infarction. EKG on arrival showed A-fib with RVR at rate of 114 beats per minute. Pertinent ICU Coarse: 12/21: No events overnight. Sedated with Diprivan and intubated. For MRA brain, carotids and MRV brain today . 12/22: Patient remains intubated, off sedation. 12/23: No events overnight. Remains off sedation. Withdraws to pain. 12/24: Remains intubated, on no sedation. For repeat MRI brain today 12/25: Tolerated PSV for 4-5 hour yesterday. 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 12/26: Tolerating PSV. Opens eyes to voice, reportedly has been blinking to command but isn't doing so currently even when family encouraging him. 12/27: Continues to tolerate PSV. Follows commands via ocular movements. Weak withdraw LUE noxious stimuli. 12/28: Tolerating PSV 04/24. Family desires trach - warfarin placed on hold. MRI today per neurology. 12/29: Tolerating tube feeds. INR 2.2. Sputum culture with pansensitive klebsiella. 12/30: No neuro change. Continues to tolerate PSV 12/31: General surgery and GI planning trach / PEG tomorrow. Has low grade temp 100.2. 01/01: On full vent support. No significant neurologic changes. s/p bedside Trach and PEG. 01/02: Resuming PSV trials. Restart tube feeds. 01/03; On continuous trach collar since yesterday evening. No significant secretions. 01/04 No events overnight. Patient has been on TP's x 2 days currently on 28% FIO2. T: 100.5 last night. 01/09 Reconsult: Halicat was called as patient was found hypoxic with sats 70%, tachycardic HR 140's patient was subsequently transferred to [facility] and placed back on ventilator. Trach changed to size #6 XLT. Patient was found to have fever with T 102.1. CXR this afternoon showed mild chronic parenchymal changes. He was noted to have some bloody secretions from trach last 2 days. 01/10 Patient Patient is sedated with Diprivan and on ventilator via trach. Had T :102.5 at midnight. CTA chest last night showed no PE, CT brain no acute findings. 01/11 Patient remains on ventilator via trach and on Fentanyl infusion for sedation. T:99.8 Objective Vital Signs Date Time Temp Pulse Resp B/P Pulse Ox O2 Delivery O2 Flow Rate FiO2 01/11/17 07:43 35 01/11/17 07:43 94 01/11/17 04:00 99.0 92 16 97/60 01/09/17 15:05 15.00 01/09/17 09:59 T-piece Intake and Output 01/10/17 01/10/17 01/11/17 08:00 16:00 00:00 Intake Total 859 ml 2356 ml 1405 ml Output Total 550 ml 950 ml 375 ml Balance 309 ml 1406 ml 1030 ml Result Diagram: 01/10/17 0458 01/10/17 0458 Other Results Laboratory Tests Test 01/10/17 10:55 Lactic Acid Level 2.7 mmol/L Imaging Last Impressions Head CT 01/09/17 0000 Signed Impressions: Service Date/Time: December 17:43 - CONCLUSION: 1. No acute hemorrhage or mass effect. 2. 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 3. Atrophy. Gerald Mukherjee MD Chest X-Ray 01/09/17 0000 Signed Impressions: Service Date/Time: December 13:13 - CONCLUSION: 1. Mild chronic appearing changes within the pulmonary parenchyma. Tracheostomy tube in good position. Stable compared to prior. Moises Ramírez MD CT Angiography 01/09/17 0000 Signed Impressions: Service Date/Time: December 17:49 - CONCLUSION: 1. No evidence of pulmonary emboli. 2. Patchy consolidation in both posterior lower lobes right greater than left. This could represent pneumonia. 3. 2 small noncalcified pulmonary nodules which are nonspecific finding. Short-term CT followup is recommended beginning in 6 months with a noncontrast outpatient CT. Gerald Mukherjee MD Tube Change 12/31/16 0000 Signed Impressions: Service Date/Time: Saturday, December 31, 2016 16:35 - CONCLUSION: Uncomplicated gastrojejunostomy tube exchange as above. Moises Ramírez MD Tube Check 12/04/16 0000 Signed Impressions: Service Date/Time: Sunday, December 04, 2016 17:58 - CONCLUSION: Uncomplicated tube injection as above. the tube is in good position and functions normally. Moises Ramírez MD Abdomen X-Ray 08/31/16 0000 Signed Impressions: Service Date/Time: Wednesday, August 31, 2016 16:36 - CONCLUSION: 1. No acute findings. Mild constipation. Durga Dotson MD Abdomen/Pelvis CT 04/12/16 0000 Signed Impressions: Service Date/Time: Tuesday, April 12, 2016 20:52 - CONCLUSION: 1. 6.4 cm necrotic mass or abscess in the soft tissues posteriorly just below the sacrum associated with some bony destructive change of the lower most sacrum and coccyx with inflammatory changes extending into the ischiorectal fossa and into the presacral retroperitoneum predominantly on the left side. There is associated fairly marked mural thickening of the anal verge and rectum. 2. There is gastrostomy and Arevalo catheter present. Stable abdominal aortic aneurysm. Durga Dotson MD Head Magnetic Resonance Angiography 03/05/16 0000 Signed Impressions: Service Date/Time: Saturday, March 05, 2016 09:26 - CONCLUSION: Persistent high-grade subtotal occlusive stenotic lesions in the distal right vertebral artery and proximal basilar artery with significant improvement in flow and recanalization following initial presentation of thrombosis. Stable interstitial circulation without significant stenosis. 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 There is decreasing restricted diffusion and increasing loss of volume characteristic of a subacute to chronic infarct. No evidence of acute infarct, acute hemorrhage mass or edema. Ernesto Kulkarni MD Neck Magnetic Resonance Angiography 12/22/15 1445 Signed Impressions: Service Date/Time: Tuesday, December 22, 2015 09:22 - CONCLUSION: Variant origin of the left vertebral artery from the aortic arch. No evidence of carotid stenosis. Glen Zamora MD Head/Brain Mag Res Venography 12/22/15 0000 Signed Impressions: Service Date/Time: Tuesday, December 22, 2015 09:22 - CONCLUSION: Normal MRV. Jonel Jones Jr., MD Objective Remarks GENERAL: Elderly male lying in bed and breathing spontaneously via tracheostomy. unlabored. SKIN: Warm and dry, well perfused HEENT: Normocephalic. No scleral icterus. Right facial droop NECK: Trachea midline. No JVD. Tracheostomy site intact CARDIOVASCULAR: Regular rate and rhythm without any appreciable murmurs RESPIRATORY: Coarse breath sounds anteriorly with good air entry bilaterally. not tachypneic. unlabored. equal chest rise. spo2 100% on fio2 100%. I turned his fio2 down to 28% and monitored the patient for 10 minutes at his bedside, and his spo2 remained 99%. I suctioned a moderate amount of white secretions. GASTROINTESTINAL: Abdomen soft, nondistended. Bowel sounds present. PEG site intact with a small hole in his PEG tube. MUSCULOSKELETAL: Palpable pulses with warm periphery. No edema NEURO: + spontaneous eye openings Procedures 01/02/16 PEG placement 01/02/16 tracheostomy 07/22/2016 Wide excision of sacral skin wound, biopsy of the cavity lining and debridement. 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 Daily sedation vacation On Keppra 500mg BID. 01/10: CT brain: No acute hemorrhage or mass effect. 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 Atrophy. Last MRI brain 02/2016: Evolving brainstem and bilateral occipital lobe infarcts with evidence of subacute hemorrhagic products. There is decreasing restricted diffusion and increasing loss of volume characteristic of a subacute to chronic infarct. No evidence of acute infarct, acute hemorrhage mass or edema. Pulm: Continue with vent support keep sat >92% Bronchodilators, ICU vent bundle. Trach changed to size #6 XLT on 01/09 01/09 CTA chest: No PE, + pneumonia CV: Monitor HR and BP keep MAP>65mmHg. On ASA 325mg daily Lactic acid 2.7 : Monitor renal function, I/O's, electrolytes replacement per protocol. d/c IVF GI: On Protonix 40mg Q12, tube feeds- Glucerna 1.5 @ 45ml/hr ID: Continue abx ( Cefepime, Vanco, Flagyl, Micafungin) Monitor for signs of infections ( Fever, WBC) strep pneumonia and Legionella urinary Ag is negative Monitor for signs of infections ( Fever, WBC) 01/09 BC GPC 1/4 bottles, Urine cx: GNR, Sputum cx: GNR 01/10: BC: NGTD Heme: Monitor CBC Endo: On SSI (low scale) for glycemic control GI prophylaxis with Protonix 40mg Q12 DVT prophylaxis with SCD and Heparin SQ Follow up on labs Level 3 Wil Langston MD Jan 11, 2017 08:39
[2017-01-11] MEDS: DILTIAZEM HCL 30 MG TAB PEG SCH ×4 (09:00→20:15)
--- NOTE | 2017-01-11 10:44 | HHI.IDPN ---
Subjective Subjective Remarks ID COVERAGE Notes reviewed D/W RN Last fever >24 hours ago On the vent - on CPAP currently Temps ok Has a lot of dark green trach secretions normal BM off pressors BC with GPC Urine c GNB Sputum with different bacteria No central line Antibiotics cefepime vanco flagyl micafungin Lines Peripheral IV Past Medical History Hypertension. Stage III non-Hodgkin's lymphoma. Diabetes mellitus. Paroxysmal atrial fibrillation. Brain biopsy in Nov, 2015. History of left arm surgery. 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 Vital Signs Date Time Temp Pulse Resp B/P Pulse Ox O2 Delivery O2 Flow Rate FiO2 01/11/17 08:00 35 01/11/17 08:00 98.7 01/11/17 07:43 35 01/11/17 07:43 94 35 01/11/17 04:13 98 35 01/11/17 04:00 35 01/11/17 04:00 99.0 92 16 97/60 98 01/11/17 01:00 89 14 79/53 96 01/11/17 00:29 95 40 01/11/17 00:00 45 01/11/17 00:00 99.4 91 14 81/53 97 01/10/17 23:00 92 14 109/64 100 01/10/17 22:00 45 01/10/17 22:00 89 14 86/56 99 01/10/17 21:00 87 14 89/58 98 01/10/17 20:10 98 45 01/10/17 20:00 45 01/10/17 20:00 98.9 90 18 104/68 98 01/10/17 17:30 100 40 01/10/17 16:00 99.8 01/10/17 16:00 45 01/10/17 14:15 100 45 01/10/17 13:30 97 16 88/55 99 01/10/17 13:00 97 16 85/53 99 01/10/17 12:30 100 16 90/55 99 01/10/17 12:00 45 01/10/17 12:00 106 19 91/63 95 01/10/17 11:30 106 18 102/65 95 01/10/17 11:18 93 45 01/10/17 11:00 109 21 109/71 96 01/10/17 01/10/17 01/11/17 15:00 23:00 07:00 Intake Total 2356 ml 1405 ml 1714 ml Output Total 950 ml 375 ml 550 ml Balance 1406 ml 1030 ml 1164 ml IV Total 2024 ml 1084 ml 1154 ml Tube Feeding 212 ml 261 ml 560 ml Other 120 ml 60 ml Output Urine Total 950 ml 375 ml 550 ml Bladder Scan Volume Amount 999 ml # Bowel Movements 2 1 . Laboratory Tests Test 01/09/17 01/10/17 15:46 04:58 White Blood Count 12.3 TH/MM3 13.0 TH/MM3 Red Blood Count 4.60 MIL/MM3 4.14 MIL/MM3 Hemoglobin 10.0 GM/DL 8.9 GM/DL Hematocrit 32.8 % 29.5 % Mean Corpuscular Volume 71.2 FL 71.3 FL Mean Corpuscular Hemoglobin 21.7 PG 21.5 PG Mean Corpuscular Hemoglobin 30.4 % 30.2 % Concent Red Cell Distribution Width 19.9 % 19.6 % Platelet Count 331 TH/MM3 262 TH/MM3 Mean Platelet Volume 8.4 FL 8.5 FL Neutrophils (%) (Auto) 92.3 % 89.0 % Lymphocytes (%) (Auto) 4.4 % 5.8 % Monocytes (%) (Auto) 2.2 % 3.7 % Eosinophils (%) (Auto) 0.7 % 1.0 % Basophils (%) (Auto) 0.4 % 0.5 % Neutrophils # (Auto) 11.4 TH/MM3 11.6 TH/MM3 Lymphocytes # (Auto) 0.5 TH/MM3 0.8 TH/MM3 Monocytes # (Auto) 0.3 TH/MM3 0.5 TH/MM3 Eosinophils # (Auto) 0.1 TH/MM3 0.1 TH/MM3 Basophils # (Auto) 0.1 TH/MM3 0.1 TH/MM3 CBC Comment AUTO DIFF DIFF FINAL Differential Total Cells 100 Counted Neutrophils % (Manual) 83 % Band Neutrophils % 6 % Lymphocytes % 4 % Monocytes % 4 % Eosinophils % 2 % Neutrophils # (Manual) 11.1 TH/MM3 Myelocytes 1 % Differential Comment FINAL DIFF MANUAL Platelet Estimate NORMAL Platelet Morphology Comment NORMAL Laboratory Tests Test 01/09/17 01/09/17 01/10/17 01/10/17 15:46 20:13 04:58 10:55 Sodium Level 135 MEQ/L 138 MEQ/L Potassium Level 4.8 MEQ/L 3.9 MEQ/L Chloride Level 101 MEQ/L 107 MEQ/L Carbon Dioxide Level 22.4 MEQ/L 23.2 MEQ/L Anion Gap 12 MEQ/L 8 MEQ/L Blood Urea Nitrogen 9 MG/DL 8 MG/DL Creatinine 0.84 MG/DL 0.72 MG/DL Estimat Glomerular Filtration 93 ML/MIN 111 ML/MIN Rate Random Glucose 139 MG/DL 135 MG/DL Lactic Acid Level 4.1 mmol/L 5.7 mmol/L 2.7 mmol/L Calcium Level 9.0 MG/DL 8.3 MG/DL Phosphorus Level 3.0 MG/DL Magnesium Level 2.0 MG/DL Total Bilirubin 0.4 MG/DL Aspartate Amino Transf 10 U/L (AST/SGOT) Alanine Aminotransferase 12 U/L (ALT/SGPT) Alkaline Phosphatase 84 U/L Total Protein 8.9 GM/DL Albumin 2.5 GM/DL Microbiology Date/Time Procedure Status Source Growth 01/09/17 14:18 Gram Stain - Final Resulted Sputum Endotracheal 01/09/17 14:18 Sputum Culture - Preliminary Resulted Klebsiella Pneumoniae Pseudomonas Aeruginosa Staphylococcus Aureus 01/09/17 15:43 Aerobic Blood Culture - Preliminary Resulted Blood Peripheral NO GROWTH IN 1 DAY 01/09/17 15:43 Anaerobic Blood Culture - Preliminary Resulted Blood Peripheral NO GROWTH IN 1 DAY 01/09/17 15:45 Urine Culture - Preliminary Resulted Urine Catheterized Urine Gram Negative Justo 01/09/17 15:46 Aerobic Blood Culture - Preliminary Resulted Blood Peripheral Staph Sp Coagulase Negative 01/09/17 15:46 Anaerobic Blood Culture - Preliminary Resulted Blood Peripheral NO GROWTH IN 1 DAY 01/10/17 08:45 Legionella Antigen - Final Complete Urine Catheterized Urine PRESUMPTIVE NEGATIVE FOR LEGIONELLA P... 01/10/17 08:45 Streptococcus pneumoniae Antigen (M - Final Complete Urine Catheterized Urine PRESUMPTIVE NEGATIVE FOR STREPTOCOCCU... 01/10/17 16:10 Aerobic Blood Culture Received Blood Peripheral Pending 01/10/17 16:10 Anaerobic Blood Culture Received Blood Peripheral Pending 01/10/17 16:15 Aerobic Blood Culture Received Blood Peripheral Pending 01/10/17 16:15 Anaerobic Blood Culture Received Blood Peripheral Pending Imaging Last Impressions Head CT 01/09/17 0000 Signed Impressions: Service Date/Time: December 17:43 - CONCLUSION: 1. No acute hemorrhage or mass effect. 2. 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 3. Atrophy. Gerald Mukherjee MD Chest X-Ray 01/09/17 0000 Signed Impressions: Service Date/Time: December 13:13 - CONCLUSION: 1. Mild chronic appearing changes within the pulmonary parenchyma. Tracheostomy tube in good position. Stable compared to prior. Moises Ramírez MD CT Angiography 01/09/17 0000 Signed Impressions: Service Date/Time: December 17:49 - CONCLUSION: 1. No evidence of pulmonary emboli. 2. Patchy consolidation in both posterior lower lobes right greater than left. This could represent pneumonia. 3. 2 small noncalcified pulmonary nodules which are nonspecific finding. Short-term CT followup is recommended beginning in 6 months with a noncontrast outpatient CT. Gerald Mukherjee MD Tube Change 12/31/16 0000 Signed Impressions: Service Date/Time: Saturday, December 31, 2016 16:35 - CONCLUSION: Uncomplicated gastrojejunostomy tube exchange as above. Moises Ramírez MD Tube Check 12/04/16 0000 Signed Impressions: Service Date/Time: Sunday, December 04, 2016 17:58 - CONCLUSION: Uncomplicated tube injection as above. the tube is in good position and functions normally. Mosies Ramírez MD Abdomen X-Ray 08/31/16 0000 Signed Impressions: Service Date/Time: Wednesday, August 31, 2016 16:36 - CONCLUSION: 1. No acute findings. Mild constipation. Durga Dotson MD Abdomen/Pelvis CT 04/12/16 0000 Signed Impressions: Service Date/Time: Tuesday, April 12, 2016 20:52 - CONCLUSION: 1. 6.4 cm necrotic mass or abscess in the soft tissues posteriorly just below the sacrum associated with some bony destructive change of the lower most sacrum and coccyx with inflammatory changes extending into the ischiorectal fossa and into the presacral retroperitoneum predominantly on the left side. There is associated fairly marked mural thickening of the anal verge and rectum. 2. There is gastrostomy and Lopez catheter present. Stable abdominal aortic aneurysm. Durga Dotson MD Head Magnetic Resonance Angiography 03/05/16 0000 Signed Impressions: Service Date/Time: Saturday, March 05, 2016 09:26 - CONCLUSION: Persistent high-grade subtotal occlusive stenotic lesions in the distal right vertebral artery and proximal basilar artery with significant improvement in flow and recanalization following initial presentation of thrombosis. Stable interstitial circulation without significant stenosis. 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 There is decreasing restricted diffusion and increasing loss of volume characteristic of a subacute to chronic infarct. No evidence of acute infarct, acute hemorrhage mass or edema. Ernesto Kulkarni MD Neck Magnetic Resonance Angiography 12/22/15 1445 Signed Impressions: Service Date/Time: Tuesday, December 22, 2015 09:22 - CONCLUSION: Variant origin of the left vertebral artery from the aortic arch. No evidence of carotid stenosis. Glen Zamora MD Head/Brain Mag Res Venography 12/22/15 0000 Signed Impressions: Service Date/Time: Tuesday, December 22, 2015 09:22 - CONCLUSION: Normal MRV. Jonel Jones Jr., MD Physical Exam GENERAL: awake, ?focusing, on CPAP, NAD SKIN: Warm to touch and dry. No generalized rash HEENT: [place] conjunctiva. . No scleral icterus. No injection or drainage. Mucous membranes pink and moist. NECK: Tracheostomy site looks okay. Dark green thick secretions in tubing CARDIOVASCULAR: Regular rate and rhythm. No murmur or rub. RESPIRATORY: has diffuse rhonchi ABDOMEN: Soft, obese, non-tender, not distended. PEG site ok. BS (+) normoactive EXTREMITIES: No clubbing, cyanosis. MIld pedal edema. Warm, and well perfused NEUROLOGICAL: Awake, not following PSYCH: Unable to assess ; lopez in place, urine looks somewhat cloudy LINE: Peripheral IV with no evidence of infection Assessment & Plan Remarks IMPRESSION New fever, clinically sepsis (fever, lactic acidosis, hpotension , acute on chronic resp failure - new GNB PNA - new UTI , GNB Gram positive cocci bacteremia, low grade ? clin significance H/o resistant PSAE CVA, with significant neurologic sequela Hx NHL Acute VDRF Pt is critically ill but seems more stable RECOMMENDATION Continue cefepime for GNR coverage Continue vanco for GPC coverage Continue flagyl Continue micafungin Adjust abx per cultures Will deescalate Abx once C/S finalized Follow C/S Monitor temps Monitor progress Weaning per [facility] D/W RN Spoke with family at bedside Emma Hughes MD Jan 11, 2017 10:44
[2017-01-11] MEDS: LACTULOSE SYRUP 20 GM/30 ML CUP PEG SCH (11:11)
[2017-01-11] MEDS: PANTOPRAZOLE SODIUM 40 MG VIAL IV PUSH SCH ×2 (11:11→22:01)
[2017-01-11 12:16] LABS: AUTOMATED NEUTROPHIL # 4.2 TH/MM3 (1.8-7.7); BASOPHIL % 0.5 % (0.0-2.0); EOSINOPHIL # 0.2 TH/MM3 (0-0.4); EOSINOPHIL % 3.9 % (0.0-4.0); HEMATOCRIT 25.3 % (39.0-51.0); HEMO FLAGS DIFF FINAL; LYMPH % 11.7 % (9.0-44.0); LYMPHOCYTE # 0.6 TH/MM3 (1.0-4.8); MEAN CELL VOLUME 71.7 FL (80.0-100.0); MEAN CORPUSCULAR HGB CONC 30.6 % (32.0-36.0); MONO % 5.4 % (0.0-8.0); NEUT % 78.5 % (16.0-70.0); PLATELET COUNT 230 TH/MM3 (150-450); RED BLOOD COUNT 3.52 MIL/MM3 (4.50-5.90); RED CELL DISTRIBUTION WIDTH 19.6 % (11.6-17.2); WHITE BLOOD COUNT 5.4 TH/MM3 (4.0-11.0)
[2017-01-11 12:39] LABS: BICARBONATE 23.7 MEQ/L (21.0-32.0); MAGNESIUM 1.9 MG/DL (1.5-2.5); POTASSIUM 3.7 MEQ/L (3.5-5.1)
[2017-01-11] MEDS: PARoxetine HCL SUSP 20 MG/10 ML UDC PEG SCH (17:09)
[2017-01-11] MEDS: SENNOSIDES SYRUP 8.8 MG/5 ML CUP PEG SCH (17:09)
[2017-01-11] MEDS: SODIUM PHOSPHATE INJ 30 MMOL in SODIUM CHLOR 0.9% 250 ML INJ 240 ML IV PRN (17:34)
[2017-01-11] MEDS: VANCOMYCIN INJ 1,600 MG in SODIUM CHLORID 0.9% 500 ML INJ 500 ML IV SCH (23:58)
[2017-01-12] VITALS (35 sets, daily range): BP systolic 84–119; BP diastolic 57–70; PULSE 77–94; RESP 12–25; TEMP 96.8–98.6; O2SAT 84–100
[2017-01-12] MEDS: CEFEPIME INJ 1,000 MG in SODIUM CHLORIDE 0.9% INJ 100 ML IV SCH ×4 (02:35→23:40)
[2017-01-12] MEDS: metroNIDAZOLE 500 MG INJ 100 ML IV SCH ×3 (03:06→16:49)
[2017-01-12] MEDS: RESP: ALBUTEROL 2.5 MG/IPRATROPIUM 0.5 MG NEB (SCH) NEB ×4 (03:29→20:29)
[2017-01-12] MEDS: INSULIN NovoLIN REGULAR SUPPLEMENTAL SCALE SQ SCH ×4 (03:49→21:17)
[2017-01-12] MEDS: MICAFUNGIN INJ 150 MG in SODIUM CHLORIDE 0.9% INJ 100 ML IV SCH (03:49)
[2017-01-12 04:16] LABS: AUTOMATED NEUTROPHIL # 2.8 TH/MM3 (1.8-7.7); BASOPHIL % 0.9 % (0.0-2.0); EOSINOPHIL # 0.2 TH/MM3 (0-0.4); EOSINOPHIL % 4.8 % (0.0-4.0); HEMATOCRIT 28.3 % (39.0-51.0); HEMO FLAGS DIFF FINAL; LYMPH % 17.9 % (9.0-44.0); LYMPHOCYTE # 0.7 TH/MM3 (1.0-4.8); MEAN CELL VOLUME 71.8 FL (80.0-100.0); MEAN CORPUSCULAR HEMOGLOBIN 21.9 PG (27.0-34.0); MEAN CORPUSCULAR HGB CONC 30.4 % (32.0-36.0); MONO % 6.4 % (0.0-8.0); PLATELET COUNT 214 TH/MM3 (150-450); RED BLOOD COUNT 3.94 MIL/MM3 (4.50-5.90); RED CELL DISTRIBUTION WIDTH 19.6 % (11.6-17.2)
[2017-01-12 04:43] LABS: BICARBONATE 26.9 MEQ/L (21.0-32.0); POTASSIUM 3.7 MEQ/L (3.5-5.1)
[2017-01-12] MEDS: ACETIC ACID 0.25% SOLN 1000 ML IRR BTL IRRIGATION SCH ×3 (05:14→21:16)
[2017-01-12] MEDS: HEPARIN SODIUM - SQ 10,000 UNITS/ML VIAL SQ SCH ×3 (05:15→21:15)
--- NOTE | 2017-01-12 08:05 | HHI.CCPN ---
Subjective Remarks/Hospital Course 59year-old male with past medical history of paroxysmal atrial fibrillation, hypertension, stage IIIa non-Hodgkin's lymphoma (s/p chemotherapy with Rituxan, [facility] 2014) presented to [facility] emergency department on 12/20 with altered mental status. When he woke up of 4 o'clock, the patient had some right facial droop associated with headaches. CT scan of the brain showed no focal or acute intracranial hemorrhage. However, there is an new area of decreased density in the left occipital lobe, suggestive of recent non hemorrhagic infarction and a decreased density in the previously noted right occipital lobe which had increased in size. The patient was recently admitted on December 06 with similar presentation and he had a right occipital juan jose hole brain biopsy done by Dr. Marin on December 13. The pathology results showed acute infarction without evidence of lymphoma. On this admission, the patient became obtunded, had sonorous respirations and can would not follow any commands. He was subsequently intubated by the emergency department physician. MRI of the brain was obtained which showed a new area of restricted diffusion within the left occipital lobe suggesting acute infarction. EKG on arrival showed A-fib with RVR at rate of 114 beats per minute. Pertinent ICU Coarse: 12/21: No events overnight. Sedated with Diprivan and intubated. For MRA brain, carotids and MRV brain today . 12/22: Patient remains intubated, off sedation. 12/23: No events overnight. Remains off sedation. Withdraws to pain. 12/24: Remains intubated, on no sedation. For repeat MRI brain today 12/25: Tolerated PSV for 4-5 hour yesterday. 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 12/26: Tolerating PSV. Opens eyes to voice, reportedly has been blinking to command but isn't doing so currently even when family encouraging him. 12/27: Continues to tolerate PSV. Follows commands via ocular movements. Weak withdraw LUE noxious stimuli. 12/28: Tolerating PSV 04/24. Family desires trach - warfarin placed on hold. MRI today per neurology. 12/29: Tolerating tube feeds. INR 2.2. Sputum culture with pansensitive klebsiella. 12/30: No neuro change. Continues to tolerate PSV 12/31: General surgery and GI planning trach / PEG tomorrow. Has low grade temp 100.2. 01/01: On full vent support. No significant neurologic changes. s/p bedside Trach and PEG. 01/02: Resuming PSV trials. Restart tube feeds. 01/03; On continuous trach collar since yesterday evening. No significant secretions. 01/04 No events overnight. Patient has been on TP's x 2 days currently on 28% FIO2. T: 100.5 last night. 01/09 Reconsult: Halicat was called as patient was found hypoxic with sats 70%, tachycardic HR 140's patient was subsequently transferred [place] [facility] back on ventilator. Trach changed to size #6 XLT. Patient was found to have fever with T 102.1. CXR this afternoon showed mild chronic parenchymal changes. He was noted to have some bloody secretions from trach last 2 days. 01/10 Patient Patient is sedated with Diprivan and on ventilator via trach. Had T :102.5 at midnight. CTA chest last night showed no PE, CT brain no acute findings. 01/11 Patient remains on ventilator via trach and on Fentanyl infusion for sedation. T:99.8 01/12 Patient has been on CPAP 04/24 with 35% FIO2 overnight. Afebrile, tolerating tube feeds. Objective Vital Signs Date Time Temp Pulse Resp B/P Pulse Ox O2 Delivery O2 Flow Rate FiO2 01/12/17 06:00 86 01/12/17 04:35 96 35 01/12/17 04:00 98.2 22 112/66 01/09/17 15:05 15.00 01/09/17 09:59 T-piece Intake and Output 01/11/17 01/11/17 01/12/17 08:00 16:00 00:00 Intake Total 1714 ml 1711 ml 1160 ml Output Total 550 ml 1300 ml 1300 ml Balance 1164 ml 411 ml -140 ml Result Diagram: 01/12/17 0401 01/12/17 0401 Other Results Laboratory Tests Test 01/11/17 01/11/17 01/12/17 11:03 17:30 04:01 White Blood Count 5.4 TH/MM3 4.0 TH/MM3 Red Blood Count 3.52 MIL/MM3 3.94 MIL/MM3 Hemoglobin 7.7 GM/DL 8.6 GM/DL Hematocrit 25.3 % 28.3 % Mean Corpuscular Volume 71.7 FL 71.8 FL Mean Corpuscular Hemoglobin 22.0 PG 21.9 PG Mean Corpuscular Hemoglobin 30.6 % 30.4 % Concent Red Cell Distribution Width 19.6 % 19.6 % Platelet Count 230 TH/MM3 214 TH/MM3 Mean Platelet Volume 8.7 FL 8.1 FL Neutrophils (%) (Auto) 78.5 % 70.0 % Lymphocytes (%) (Auto) 11.7 % 17.9 % Monocytes (%) (Auto) 5.4 % 6.4 % Eosinophils (%) (Auto) 3.9 % 4.8 % Basophils (%) (Auto) 0.5 % 0.9 % Neutrophils # (Auto) 4.2 TH/MM3 2.8 TH/MM3 Lymphocytes # (Auto) 0.6 TH/MM3 0.7 TH/MM3 Monocytes # (Auto) 0.3 TH/MM3 0.3 TH/MM3 Eosinophils # (Auto) 0.2 TH/MM3 0.2 TH/MM3 Basophils # (Auto) 0.0 TH/MM3 0.0 TH/MM3 CBC Comment DIFF FINAL DIFF FINAL Differential Comment Sodium Level 139 MEQ/L 141 MEQ/L Potassium Level 3.7 MEQ/L 3.7 MEQ/L Chloride Level 108 MEQ/L 107 MEQ/L Carbon Dioxide Level 23.7 MEQ/L 26.9 MEQ/L Anion Gap 7 MEQ/L 7 MEQ/L Blood Urea Nitrogen 8 MG/DL 5 MG/DL Creatinine 0.59 MG/DL 0.59 MG/DL Estimat Glomerular Filtration 140 ML/MIN 140 ML/MIN Rate Random Glucose 132 MG/DL 127 MG/DL Calcium Level 7.8 MG/DL 8.3 MG/DL Phosphorus Level 1.7 MG/DL 2.5 MG/DL Magnesium Level 1.9 MG/DL Vancomycin Level Trough 4.6 MCG/ML Imaging Last Impressions Head CT 01/09/17 0000 Signed Impressions: Service Date/Time: December 17:43 - CONCLUSION: 1. No acute hemorrhage or mass effect. 2. 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 3. Atrophy. Gerald Mukherjee MD Chest X-Ray 01/09/17 0000 Signed Impressions: Service Date/Time: December 13:13 - CONCLUSION: 1. Mild chronic appearing changes within the pulmonary parenchyma. Tracheostomy tube in good position. Stable compared to prior. Moises Ramírez MD CT Angiography 01/09/17 0000 Signed Impressions: Service Date/Time: December 17:49 - CONCLUSION: 1. No evidence of pulmonary emboli. 2. Patchy consolidation in both posterior lower lobes right greater than left. This could represent pneumonia. 3. 2 small noncalcified pulmonary nodules which are nonspecific finding. Short-term CT followup is recommended beginning in 6 months with a noncontrast outpatient CT. Gerald Mukherjee MD Tube Change 12/31/16 0000 Signed Impressions: Service Date/Time: Saturday, December 31, 2016 16:35 - CONCLUSION: Uncomplicated gastrojejunostomy tube exchange as above. Moises Ramírez MD Tube Check 12/04/16 0000 Signed Impressions: Service Date/Time: Sunday, December 04, 2016 17:58 - CONCLUSION: Uncomplicated tube injection as above. the tube is in good position and functions normally. Moises Ramírez MD Abdomen X-Ray 08/31/16 0000 Signed Impressions: Service Date/Time: Wednesday, August 31, 2016 16:36 - CONCLUSION: 1. No acute findings. Mild constipation. Durga Dotson MD Abdomen/Pelvis CT 04/12/16 0000 Signed Impressions: Service Date/Time: Tuesday, April 12, 2016 20:52 - CONCLUSION: 1. 6.4 cm necrotic mass or abscess in the soft tissues posteriorly just below the sacrum associated with some bony destructive change of the lower most sacrum and coccyx with inflammatory changes extending into the ischiorectal fossa and into the presacral retroperitoneum predominantly on the left side. There is associated fairly marked mural thickening of the anal verge and rectum. 2. There is gastrostomy and Arevalo catheter present. Stable abdominal aortic aneurysm. Durga Dotson MD Head Magnetic Resonance Angiography 03/05/16 0000 Signed Impressions: Service Date/Time: Saturday, March 05, 2016 09:26 - CONCLUSION: Persistent high-grade subtotal occlusive stenotic lesions in the distal right vertebral artery and proximal basilar artery with significant improvement in flow and recanalization following initial presentation of thrombosis. Stable interstitial circulation without significant stenosis. 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 There is decreasing restricted diffusion and increasing loss of volume characteristic of a subacute to chronic infarct. No evidence of acute infarct, acute hemorrhage mass or edema. Ernesto Kulkarni MD Neck Magnetic Resonance Angiography 12/22/15 1445 Signed Impressions: Service Date/Time: Tuesday, December 22, 2015 09:22 - CONCLUSION: Variant origin of the left vertebral artery from the aortic arch. No evidence of carotid stenosis. Glen Zamora MD Head/Brain Mag Res Venography 12/22/15 0000 Signed Impressions: Service Date/Time: Tuesday, December 22, 2015 09:22 - CONCLUSION: Normal MRV. Jonel Jones Jr., MD Objective Remarks GENERAL: Elderly male lying in bed and breathing spontaneously via tracheostomy. unlabored. SKIN: Warm and dry, well perfused HEENT: Normocephalic. No scleral icterus. Right facial droop NECK: Trachea midline. No JVD. Tracheostomy site intact CARDIOVASCULAR: Regular rate and rhythm without any appreciable murmurs RESPIRATORY: Coarse breath sounds anteriorly with good air entry bilaterally. not tachypneic. unlabored. equal chest rise. spo2 100% on fio2 100%. I turned his fio2 down to 28% and monitored the patient for 10 minutes at his bedside, and his spo2 remained 99%. I suctioned a moderate amount of white secretions. GASTROINTESTINAL: Abdomen soft, nondistended. Bowel sounds present. PEG site intact with a small hole in his PEG tube. MUSCULOSKELETAL: Palpable pulses with warm periphery. No edema NEURO: + spontaneous eye openings Procedures 01/02/16 PEG placement 01/02/16 tracheostomy 07/22/2016 Wide excision of sacral skin wound, biopsy of the cavity lining and debridement. 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 Daily sedation vacation On Keppra 500mg BID. 01/10: CT brain: No acute hemorrhage or mass effect. 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 Atrophy. Last MRI brain 02/2016: Evolving brainstem and bilateral occipital lobe infarcts with evidence of subacute hemorrhagic products. There is decreasing restricted diffusion and increasing loss of volume characteristic of a subacute to chronic infarct. No evidence of acute infarct, acute hemorrhage mass or edema. Pulm: Continue with vent support keep sat >92% Bronchodilators, ICU vent bundle. Trach changed to size #6 XLT on 01/09 01/09 CTA chest: No PE, + pneumonia SBT/TP's as karlie CV: Monitor HR and BP keep MAP>65mmHg. On ASA 325mg daily Lactic acid 2.7 : Monitor renal function, I/O's, electrolytes replacement per protocol. GI: On Protonix 40mg Q12, tube feeds- Glucerna 1.5 @ 45ml/hr ID: Continue abx ( Cefepime, Vanco, Flagyl, Micafungin) Monitor for signs of infections ( Fever, WBC) strep pneumonia and Legionella urinary Ag is negative Monitor for signs of infections ( Fever, WBC) 01/09 BC GPC coag negative staph, Urine cx: GNR, Sputum cx: Pseudomonas, kleb, Staph 01/10: BC: NGTD Heme: Monitor CBC Endo: On SSI (low scale) for glycemic control GI prophylaxis with Protonix 40mg Q12 DVT prophylaxis with SCD and Heparin SQ Level 3 Wil Langston MD Jan 12, 2017 08:05 Wil Langston MD Jan 12, 2017 08:05
[2017-01-12] MEDS: VANCOMYCIN INJ 1,600 MG in SODIUM CHLORID 0.9% 500 ML INJ 500 ML IV SCH ×2 (08:27→16:49)
[2017-01-12] MEDS: LACTULOSE SYRUP 20 GM/30 ML CUP PEG SCH (08:29)
[2017-01-12] MEDS: MAGNESIUM HYDROXIDE SUSP 30 ML CUP PEG SCH (08:29)
[2017-01-12] MEDS: SODIUM CHLORIDE 0.65% NASAL SPRAY 45 ML BTL NASAL SCH ×2 (08:29→21:14)
[2017-01-12] MEDS: levETIRAcetam 500 MG/5 ML UDC TUBE SCH ×2 (08:29→21:15)
[2017-01-12] MEDS: ASPIRIN 325 MG TAB TUBE SCH (08:29)
[2017-01-12] MEDS: DILTIAZEM HCL 30 MG TAB PEG SCH ×4 (08:29→21:14)
[2017-01-12] MEDS: NYSTATIN 100,000 U/GM PWD 15 GM BTL TOPICAL SCH ×2 (08:30→21:15)
[2017-01-12] MEDS: BACITRACIN TOP OINT 15 GM TUBE TOP SCH ×2 (08:30→21:16)
[2017-01-12] MEDS: ARTIFICIAL TEARS OPTH SOLN 15 ML BTL EACH EYE SCH ×2 (08:30→21:14)
[2017-01-12] MEDS: PANTOPRAZOLE SODIUM 40 MG VIAL IV PUSH SCH ×2 (11:50→21:15)
--- NOTE | 2017-01-12 12:22 | HHI.IDPN ---
Subjective Subjective Remarks ID COVERAGE Notes reviewed Temps ok On the vent - on CPAP currently Temps ok BC with Staph epi Urine with PSAE Sputum with different bacteria No central line Antibiotics cefepime vanco flagyl micafungin Lines Peripheral IV Past Medical History Hypertension. Stage III non-Hodgkin's lymphoma. Diabetes mellitus. Paroxysmal atrial fibrillation. Brain biopsy in Nov, 2015. History of left arm surgery. 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 Vital Signs Date Time Temp Pulse Resp B/P Pulse Ox O2 Delivery O2 Flow Rate FiO2 01/12/17 11:42 99 55 01/12/17 08:02 99 35 01/12/17 08:00 35 01/12/17 06:00 86 01/12/17 04:35 96 35 01/12/17 04:00 35 01/12/17 04:00 98.2 90 22 112/66 98 01/12/17 04:00 90 01/12/17 02:00 88 01/12/17 00:51 98 35 01/12/17 00:00 90 01/12/17 00:00 97.8 90 19 106/61 96 01/12/17 00:00 35 01/11/17 22:00 93 01/11/17 21:33 97 35 01/11/17 20:00 35 01/11/17 20:00 98.6 92 21 127/77 99 01/11/17 20:00 92 01/11/17 16:00 96 21 112/74 100 01/11/17 16:00 35 01/11/17 15:30 95 14 113/70 99 01/11/17 15:00 94 20 113/77 99 01/11/17 14:58 99 35 01/11/17 14:30 97 15 116/72 100 01/11/17 14:00 99 21 117/69 99 01/11/17 13:30 98 14 114/65 99 01/11/17 13:00 100 21 117/66 97 01/11/17 12:30 103 14 113/63 95 01/11/17 01/11/17 01/12/17 15:00 23:00 07:00 Intake Total 1711 ml 1160 ml 846 ml Output Total 1300 ml 1300 ml 425 ml Balance 411 ml -140 ml 421 ml IV Total 951 ml 823 ml 846 ml Tube Feeding 360 ml 337 ml Other 400 ml Output Urine Total 1300 ml 1300 ml 425 ml # Bowel Movements 2 . Laboratory Tests Test 01/11/17 01/12/17 11:03 04:01 White Blood Count 5.4 TH/MM3 4.0 TH/MM3 Red Blood Count 3.52 MIL/MM3 3.94 MIL/MM3 Hemoglobin 7.7 GM/DL 8.6 GM/DL Hematocrit 25.3 % 28.3 % Mean Corpuscular Volume 71.7 FL 71.8 FL Mean Corpuscular Hemoglobin 22.0 PG 21.9 PG Mean Corpuscular Hemoglobin 30.6 % 30.4 % Concent Red Cell Distribution Width 19.6 % 19.6 % Platelet Count 230 TH/MM3 214 TH/MM3 Mean Platelet Volume 8.7 FL 8.1 FL Neutrophils (%) (Auto) 78.5 % 70.0 % Lymphocytes (%) (Auto) 11.7 % 17.9 % Monocytes (%) (Auto) 5.4 % 6.4 % Eosinophils (%) (Auto) 3.9 % 4.8 % Basophils (%) (Auto) 0.5 % 0.9 % Neutrophils # (Auto) 4.2 TH/MM3 2.8 TH/MM3 Lymphocytes # (Auto) 0.6 TH/MM3 0.7 TH/MM3 Monocytes # (Auto) 0.3 TH/MM3 0.3 TH/MM3 Eosinophils # (Auto) 0.2 TH/MM3 0.2 TH/MM3 Basophils # (Auto) 0.0 TH/MM3 0.0 TH/MM3 CBC Comment DIFF FINAL DIFF FINAL Differential Comment Laboratory Tests Test 01/11/17 01/12/17 11:03 04:01 Sodium Level 139 MEQ/L 141 MEQ/L Potassium Level 3.7 MEQ/L 3.7 MEQ/L Chloride Level 108 MEQ/L 107 MEQ/L Carbon Dioxide Level 23.7 MEQ/L 26.9 MEQ/L Anion Gap 7 MEQ/L 7 MEQ/L Blood Urea Nitrogen 8 MG/DL 5 MG/DL Creatinine 0.59 MG/DL 0.59 MG/DL Estimat Glomerular Filtration 140 ML/MIN 140 ML/MIN Rate Random Glucose 132 MG/DL 127 MG/DL Calcium Level 7.8 MG/DL 8.3 MG/DL Phosphorus Level 1.7 MG/DL 2.5 MG/DL Magnesium Level 1.9 MG/DL Microbiology Date/Time Procedure Status Source Growth 01/09/17 14:18 Gram Stain - Final Complete Sputum Endotracheal 01/09/17 14:18 Sputum Culture - Final Complete Klebsiella Pneumoniae Pseudomonas Aeruginosa Staphylococcus Aureus 01/09/17 15:43 Aerobic Blood Culture - Preliminary Resulted Blood Peripheral NO GROWTH IN 3 DAYS 01/09/17 15:43 Anaerobic Blood Culture - Preliminary Resulted Blood Peripheral NO GROWTH IN 3 DAYS 01/09/17 15:45 Urine Culture - Final Complete Urine Catheterized Urine Pseudomonas Aeruginosa 01/09/17 15:46 Aerobic Blood Culture - Final Resulted Blood Peripheral Staphylococcus Epidermidis 01/09/17 15:46 Anaerobic Blood Culture - Preliminary Resulted Blood Peripheral NO GROWTH IN 3 DAYS 01/10/17 08:45 Legionella Antigen - Final Complete Urine Catheterized Urine PRESUMPTIVE NEGATIVE FOR LEGIONELLA P... 01/10/17 08:45 Streptococcus pneumoniae Antigen (M - Final Complete Urine Catheterized Urine PRESUMPTIVE NEGATIVE FOR STREPTOCOCCU... 01/10/17 16:10 Aerobic Blood Culture - Preliminary Resulted Blood Peripheral NO GROWTH IN 2 DAYS 01/10/17 16:10 Anaerobic Blood Culture - Preliminary Resulted Blood Peripheral NO GROWTH IN 2 DAYS 01/10/17 16:15 Aerobic Blood Culture - Preliminary Resulted Blood Peripheral NO GROWTH IN 2 DAYS 01/10/17 16:15 Anaerobic Blood Culture - Preliminary Resulted Blood Peripheral NO GROWTH IN 2 DAYS Imaging Last Impressions Head CT 01/09/17 0000 Signed Impressions: Service Date/Time: December 17:43 - CONCLUSION: 1. No acute hemorrhage or mass effect. 2. 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 3. Atrophy. Gerald Mukherjee MD Chest X-Ray 01/09/17 0000 Signed Impressions: Service Date/Time: December 13:13 - CONCLUSION: 1. Mild chronic appearing changes within the pulmonary parenchyma. Tracheostomy tube in good position. Stable compared to prior. Moises Ramírez MD CT Angiography 01/09/17 0000 Signed Impressions: Service Date/Time: December 17:49 - CONCLUSION: 1. No evidence of pulmonary emboli. 2. Patchy consolidation in both posterior lower lobes right greater than left. This could represent pneumonia. 3. 2 small noncalcified pulmonary nodules which are nonspecific finding. Short-term CT followup is recommended beginning in 6 months with a noncontrast outpatient CT. Gerald Mukherjee MD Tube Change 12/31/16 0000 Signed Impressions: Service Date/Time: Saturday, December 31, 2016 16:35 - CONCLUSION: Uncomplicated gastrojejunostomy tube exchange as above. Moises Ramírez MD Tube Check 12/04/16 0000 Signed Impressions: Service Date/Time: Sunday, December 04, 2016 17:58 - CONCLUSION: Uncomplicated tube injection as above. the tube is in good position and functions normally. Moises Ramírez MD Abdomen X-Ray 08/31/16 0000 Signed Impressions: Service Date/Time: Wednesday, August 31, 2016 16:36 - CONCLUSION: 1. No acute findings. Mild constipation. Durga Dotson MD Abdomen/Pelvis CT 04/12/16 0000 Signed Impressions: Service Date/Time: Tuesday, April 12, 2016 20:52 - CONCLUSION: 1. 6.4 cm necrotic mass or abscess in the soft tissues posteriorly just below the sacrum associated with some bony destructive change of the lower most sacrum and coccyx with inflammatory changes extending into the ischiorectal fossa and into the presacral retroperitoneum predominantly on the left side. There is associated fairly marked mural thickening of the anal verge and rectum. 2. There is gastrostomy and Lopez catheter present. Stable abdominal aortic aneurysm. Durga Dotson MD Head Magnetic Resonance Angiography 03/05/16 0000 Signed Impressions: Service Date/Time: Saturday, March 05, 2016 09:26 - CONCLUSION: Persistent high-grade subtotal occlusive stenotic lesions in the distal right vertebral artery and proximal basilar artery with significant improvement in flow and recanalization following initial presentation of thrombosis. Stable interstitial circulation without significant stenosis. 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 There is decreasing restricted diffusion and increasing loss of volume characteristic of a subacute to chronic infarct. No evidence of acute infarct, acute hemorrhage mass or edema. Ernesto Kulkarni MD Neck Magnetic Resonance Angiography 12/22/15 1445 Signed Impressions: Service Date/Time: Tuesday, December 22, 2015 09:22 - CONCLUSION: Variant origin of the left vertebral artery from the aortic arch. No evidence of carotid stenosis. Glen Zamora MD Head/Brain Mag Res Venography 12/22/15 0000 Signed Impressions: Service Date/Time: Tuesday, December 22, 2015 09:22 - CONCLUSION: Normal MRV. Jonel Jones Jr., MD Physical Exam GENERAL: Opens eyes, on CPAP, NAD SKIN: Warm to touch and dry. No generalized rash HEENT: [place] conjunctiva. . No scleral icterus. No injection or drainage. Mucous membranes pink and moist. NECK: Tracheostomy site looks okay. Dark green thick secretions in tubing CARDIOVASCULAR: Regular rate and rhythm. No murmur or rub. RESPIRATORY: has diffuse rhonchi ABDOMEN: Soft, obese, non-tender, not distended. PEG site ok. BS (+) normoactive EXTREMITIES: No clubbing, cyanosis. MIld pedal edema. Warm, and well perfused NEUROLOGICAL: Awake, not following PSYCH: Unable to assess ; lopez in place, urine looks somewhat cloudy LINE: Peripheral IV with no evidence of infection Assessment & Plan Remarks IMPRESSION New fever, clinically sepsis (fever, lactic acidosis, hpotension , acute on chronic resp failure - new GNB PNA - new UTI , GNB Gram positive cocci bacteremia, low grade ? clin significance H/o resistant PSAE CVA, with significant neurologic sequela Hx NHL Acute VDRF Pt is critically ill but seems more stable RECOMMENDATION Continue cefepime for GNR coverage Continue vanco for GPC coverage Continue flagyl Stop micafungin Follow C/S Monitor temps Monitor progress Weaning per CCM Emma Hughes MD Jan 12, 2017 12:22
[2017-01-12] MEDS: SENNOSIDES SYRUP 8.8 MG/5 ML CUP PEG SCH (16:49)
[2017-01-12] MEDS: PARoxetine HCL SUSP 20 MG/10 ML UDC PEG SCH (18:13)
[2017-01-13] VITALS (17 sets, daily range): BP systolic 96–121; BP diastolic 54–74; PULSE 80–93; RESP 18–25; TEMP 97.8–99.2; O2SAT 97–100
[2017-01-13] MEDS: VANCOMYCIN INJ 1,600 MG in SODIUM CHLORID 0.9% 500 ML INJ 500 ML IV SCH (00:31)
[2017-01-13] MEDS: metroNIDAZOLE 500 MG INJ 100 ML IV SCH ×3 (00:31→17:49)
[2017-01-13] MEDS: MICAFUNGIN INJ 150 MG in SODIUM CHLORIDE 0.9% INJ 100 ML IV SCH (02:40)
[2017-01-13] MEDS: RESP: ALBUTEROL 2.5 MG/IPRATROPIUM 0.5 MG NEB (SCH) NEB ×3 (03:53→15:12)
[2017-01-13] MEDS: INSULIN NovoLIN REGULAR SUPPLEMENTAL SCALE SQ SCH ×4 (04:00→20:37)
[2017-01-13] MEDS: HEPARIN SODIUM - SQ 10,000 UNITS/ML VIAL SQ SCH ×3 (05:54→20:33)
[2017-01-13] MEDS: ACETIC ACID 0.25% SOLN 1000 ML IRR BTL IRRIGATION SCH ×3 (05:54→20:35)
[2017-01-13 05:58] LABS: AUTOMATED NEUTROPHIL # 2.9 TH/MM3 (1.8-7.7); BASOPHIL % 0.7 % (0.0-2.0); EOSINOPHIL # 0.1 TH/MM3 (0-0.4); EOSINOPHIL % 3.2 % (0.0-4.0); HEMO FLAGS DIFF FINAL; LYMPH % 18.5 % (9.0-44.0); LYMPHOCYTE # 0.7 TH/MM3 (1.0-4.8); MEAN CELL VOLUME 71.1 FL (80.0-100.0); MEAN CORPUSCULAR HEMOGLOBIN 21.7 PG (27.0-34.0); MEAN CORPUSCULAR HGB CONC 30.5 % (32.0-36.0); MONO % 6.6 % (0.0-8.0); PLATELET COUNT 246 TH/MM3 (150-450); RED BLOOD COUNT 3.93 MIL/MM3 (4.50-5.90); RED CELL DISTRIBUTION WIDTH 19.6 % (11.6-17.2)
[2017-01-13 06:24] LABS: BICARBONATE 27.2 MEQ/L (21.0-32.0); MAGNESIUM 1.8 MG/DL (1.5-2.5); POTASSIUM 3.4 MEQ/L (3.5-5.1)
[2017-01-13] MEDS: CEFEPIME INJ 1,000 MG in SODIUM CHLORIDE 0.9% INJ 100 ML IV SCH ×2 (08:35→15:20)
[2017-01-13] MEDS: ARTIFICIAL TEARS OPTH SOLN 15 ML BTL EACH EYE SCH ×2 (08:35→20:34)
[2017-01-13] MEDS: NYSTATIN 100,000 U/GM PWD 15 GM BTL TOPICAL SCH ×2 (08:36→20:34)
[2017-01-13] MEDS: SODIUM CHLORIDE 0.65% NASAL SPRAY 45 ML BTL NASAL SCH ×2 (08:36→20:34)
[2017-01-13] MEDS: BACITRACIN TOP OINT 15 GM TUBE TOP SCH ×2 (08:36→20:34)
[2017-01-13] MEDS: MAGNESIUM HYDROXIDE SUSP 30 ML CUP PEG SCH (09:00)
[2017-01-13] MEDS: DILTIAZEM HCL 30 MG TAB PEG SCH ×4 (09:00→20:33)
[2017-01-13] MEDS: LACTULOSE SYRUP 20 GM/30 ML CUP PEG SCH (09:00)
[2017-01-13] MEDS: ASPIRIN 325 MG TAB TUBE SCH (10:13)
[2017-01-13] MEDS: levETIRAcetam 500 MG/5 ML UDC TUBE SCH ×2 (10:14→20:33)
[2017-01-13] MEDS: PANTOPRAZOLE SODIUM 40 MG VIAL IV PUSH SCH ×2 (10:15→20:46)
--- NOTE | 2017-01-13 11:02 | HHI.CCPN ---
Subjective Remarks/Hospital Course 59year-old male with past medical history of paroxysmal atrial fibrillation, hypertension, stage IIIa non-Hodgkin's lymphoma (s/p chemotherapy with Rituxan, [facility] 2014) presented to [facility] emergency department on 12/20 with altered mental status. When he woke up of 4 o'clock, the patient had some right facial droop associated with headaches. CT scan of the brain showed no focal or acute intracranial hemorrhage. However, there is an new area of decreased density in the left occipital lobe, suggestive of recent non hemorrhagic infarction and a decreased density in the previously noted right occipital lobe which had increased in size. The patient was recently admitted on December 06 with similar presentation and he had a right occipital juan jose hole brain biopsy done by Dr. Marin on December 13. The pathology results showed acute infarction without evidence of lymphoma. On this admission, the patient became obtunded, had sonorous respirations and can would not follow any commands. He was subsequently intubated by the emergency department physician. MRI of the brain was obtained which showed a new area of restricted diffusion within the left occipital lobe suggesting acute infarction. EKG on arrival showed A-fib with RVR at rate of 114 beats per minute. Pertinent ICU Coarse: 12/21: No events overnight. Sedated with Diprivan and intubated. For MRA brain, carotids and MRV brain today . 12/22: Patient remains intubated, off sedation. 12/23: No events overnight. Remains off sedation. Withdraws to pain. 12/24: Remains intubated, on no sedation. For repeat MRI brain today 12/25: Tolerated PSV for 4-5 hour yesterday. 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 12/26: Tolerating PSV. Opens eyes to voice, reportedly has been blinking to command but isn't doing so currently even when family encouraging him. 12/27: Continues to tolerate PSV. Follows commands via ocular movements. Weak withdraw LUE noxious stimuli. 12/28: Tolerating PSV 04/24. Family desires trach - warfarin placed on hold. MRI today per neurology. 12/29: Tolerating tube feeds. INR 2.2. Sputum culture with pansensitive klebsiella. 12/30: No neuro change. Continues to tolerate PSV 12/31: General surgery and GI planning trach / PEG tomorrow. Has low grade temp 100.2. 01/01: On full vent support. No significant neurologic changes. s/p bedside Trach and PEG. 01/02: Resuming PSV trials. Restart tube feeds. 01/03; On continuous trach collar since yesterday evening. No significant secretions. 01/04 No events overnight. Patient has been on TP's x 2 days currently on 28% FIO2. T: 100.5 last night. 01/09 Reconsult: Halicat was called as patient was found hypoxic with sats 70%, tachycardic HR 140's patient was subsequently transferred to [facility] and placed back on ventilator. Trach changed to size #6 XLT. Patient was found to have fever with T 102.1. CXR this afternoon showed mild chronic parenchymal changes. He was noted to have some bloody secretions from trach last 2 days. 01/10 Patient Patient is sedated with Diprivan and on ventilator via trach. Had T :102.5 at midnight. CTA chest last night showed no PE, CT brain no acute findings. 01/11 Patient remains on ventilator via trach and on Fentanyl infusion for sedation. T:99.8 01/12 Patient has been on CPAP 04/24 with 35% FIO2 overnight. Afebrile, tolerating tube feeds. 01/12 Patient remains on CPAP overnight. Afebrile. Objective Vital Signs Date Time Temp Pulse Resp B/P Pulse Ox O2 Delivery O2 Flow Rate FiO2 01/13/17 07:45 97 T-piece 40 01/13/17 06:00 85 01/13/17 04:00 98.6 18 96/54 01/09/17 15:05 15.00 Intake and Output 01/12/17 01/12/17 01/13/17 08:00 16:00 00:00 Intake Total 846 ml 1495 ml 1234 ml Output Total 425 ml 950 ml 1350 ml Balance 421 ml 545 ml -116 ml Result Diagram: 01/13/17 0426 01/13/17 0426 Other Results Laboratory Tests Test 01/13/17 01/13/17 00:14 04:26 Vancomycin Level Trough 34.0 MCG/ML White Blood Count 4.0 TH/MM3 Red Blood Count 3.93 MIL/MM3 Hemoglobin 8.5 GM/DL Hematocrit 28.0 % Mean Corpuscular Volume 71.1 FL Mean Corpuscular Hemoglobin 21.7 PG Mean Corpuscular Hemoglobin 30.5 % Concent Red Cell Distribution Width 19.6 % Platelet Count 246 TH/MM3 Mean Platelet Volume 8.3 FL Neutrophils (%) (Auto) 71.0 % Lymphocytes (%) (Auto) 18.5 % Monocytes (%) (Auto) 6.6 % Eosinophils (%) (Auto) 3.2 % Basophils (%) (Auto) 0.7 % Neutrophils # (Auto) 2.9 TH/MM3 Lymphocytes # (Auto) 0.7 TH/MM3 Monocytes # (Auto) 0.3 TH/MM3 Eosinophils # (Auto) 0.1 TH/MM3 Basophils # (Auto) 0.0 TH/MM3 CBC Comment DIFF FINAL Differential Comment Sodium Level 142 MEQ/L Potassium Level 3.4 MEQ/L Chloride Level 104 MEQ/L Carbon Dioxide Level 27.2 MEQ/L Anion Gap 11 MEQ/L Blood Urea Nitrogen 4 MG/DL Creatinine 0.46 MG/DL Estimat Glomerular Filtration 186 ML/MIN Rate Random Glucose 106 MG/DL Calcium Level 8.3 MG/DL Phosphorus Level 2.0 MG/DL Magnesium Level 1.8 MG/DL Imaging Last Impressions Head CT 01/09/17 0000 Signed Impressions: Service Date/Time: December 17:43 - CONCLUSION: 1. No acute hemorrhage or mass effect. 2. 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 3. Atrophy. Gerald Mukherjee MD Chest X-Ray 01/09/17 0000 Signed Impressions: Service Date/Time: December 13:13 - CONCLUSION: 1. Mild chronic appearing changes within the pulmonary parenchyma. Tracheostomy tube in good position. Stable compared to prior. Moises Ramírez MD CT Angiography 01/09/17 0000 Signed Impressions: Service Date/Time: December 17:49 - CONCLUSION: 1. No evidence of pulmonary emboli. 2. Patchy consolidation in both posterior lower lobes right greater than left. This could represent pneumonia. 3. 2 small noncalcified pulmonary nodules which are nonspecific finding. Short-term CT followup is recommended beginning in 6 months with a noncontrast outpatient CT. Gerald Mukherjee MD Tube Change 12/31/16 0000 Signed Impressions: Service Date/Time: Saturday, December 31, 2016 16:35 - CONCLUSION: Uncomplicated gastrojejunostomy tube exchange as above. Moises Ramírez MD Tube Check 12/04/16 0000 Signed Impressions: Service Date/Time: Sunday, December 04, 2016 17:58 - CONCLUSION: Uncomplicated tube injection as above. the tube is in good position and functions normally. Moises Ramírez MD Abdomen X-Ray 08/31/16 0000 Signed Impressions: Service Date/Time: Wednesday, August 31, 2016 16:36 - CONCLUSION: 1. No acute findings. Mild constipation. Durga Dotson MD Abdomen/Pelvis CT 04/12/16 0000 Signed Impressions: Service Date/Time: Tuesday, April 12, 2016 20:52 - CONCLUSION: 1. 6.4 cm necrotic mass or abscess in the soft tissues posteriorly just below the sacrum associated with some bony destructive change of the lower most sacrum and coccyx with inflammatory changes extending into the ischiorectal fossa and into the presacral retroperitoneum predominantly on the left side. There is associated fairly marked mural thickening of the anal verge and rectum. 2. There is gastrostomy and Arevalo catheter present. Stable abdominal aortic aneurysm. Durga Dotson MD Head Magnetic Resonance Angiography 03/05/16 0000 Signed Impressions: Service Date/Time: Saturday, March 05, 2016 09:26 - CONCLUSION: Persistent high-grade subtotal occlusive stenotic lesions in the distal right vertebral artery and proximal basilar artery with significant improvement in flow and recanalization following initial presentation of thrombosis. Stable interstitial circulation without significant stenosis. 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 There is decreasing restricted diffusion and increasing loss of volume characteristic of a subacute to chronic infarct. No evidence of acute infarct, acute hemorrhage mass or edema. Ernesto Kulkarni MD Neck Magnetic Resonance Angiography 12/22/15 1445 Signed Impressions: Service Date/Time: Tuesday, December 22, 2015 09:22 - CONCLUSION: Variant origin of the left vertebral artery from the aortic arch. No evidence of carotid stenosis. Glen Zamora MD Head/Brain Mag Res Venography 12/22/15 0000 Signed Impressions: Service Date/Time: Tuesday, December 22, 2015 09:22 - CONCLUSION: Normal MRV. Jonel Jones Jr., MD Objective Remarks GENERAL: Patient is 61 yo on ventilator via trach SKIN: Warm and dry. HEAD: Normocephalic. EYES: No scleral icterus. No injection or drainage. NECK: Supple, trachea midline. No JVD or lymphadenopathy. CARDIOVASCULAR: Regular rate and rhythm without murmurs, gallops, or rubs. RESPIRATORY: Breath sounds equal bilaterally. No accessory muscle use. GASTROINTESTINAL: Abdomen soft, non-tender, nondistended. MUSCULOSKELETAL: No cyanosis, or edema. Neuro: On no sedation Procedures 01/02/16 PEG placement 01/02/16 tracheostomy 07/22/2016 Wide excision of sacral skin wound, biopsy of the cavity lining and debridement. 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 01/10: CT brain: No acute hemorrhage or mass effect. 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 Atrophy. Last MRI brain 02/2016: Evolving brainstem and bilateral occipital lobe infarcts with evidence of subacute hemorrhagic products. There is decreasing restricted diffusion and increasing loss of volume characteristic of a subacute to chronic infarct. No evidence of acute infarct, acute hemorrhage mass or edema. Pulm: Continue with vent support keep sat >92%. Trach changed to size #6 XLT on 01/09 Bronchodilators, ICU vent bundle. SBT/TP trials as karlie 01/09 CTA chest: No PE, + pneumonia CV: Monitor HR and BP keep MAP>65mmHg. On ASA 325mg daily Lactic acid 2.7 : Monitor renal function, I/O's, electrolytes replacement per protocol. Will need K, Phos replacement GI: On Protonix 40mg Q12, tube feeds( Glucerna 1.5 @ 45ml/hr) held overnight as PEG tube was clogged. Will consult GI. ID: Continue abx ( Cefepime, Vanco, Flagyl) Monitor for signs of infections ( Fever, WBC) strep pneumonia and Legionella urinary Ag is negative Monitor for signs of infections ( Fever, WBC) 01/09 BC : Staph Epi, Urine cx: GNR, Sputum cx: Pseudomonas, kleb, Staph 01/10: BC: NGTD Heme: Monitor CBC Endo: On SSI (low scale) for glycemic control GI prophylaxis with Protonix 40mg Q12 DVT prophylaxis with SCD and Heparin SQ Level 3 Wil Langston MD Jan 13, 2017 11:02
[2017-01-13] MEDS: SENNOSIDES SYRUP 8.8 MG/5 ML CUP PEG SCH (15:21)
--- NOTE | 2017-01-13 15:22 | HHI.IDPN ---
Subjective Subjective Remarks Notes reviewed low grade fever in am, now AF On Tpiece and tolerating having large amount of liquid stool BC with Staph epi, low grade Urine with PSAE Sputum with different bacteria, including PSAE, Kleb pnuemo and MSSA all S to cefepime No central line Antibiotics cefepime vanco flagyl micafungin Lines Peripheral IV Past Medical History Hypertension. Stage III non-Hodgkin's lymphoma. Diabetes mellitus. Paroxysmal atrial fibrillation. Brain biopsy in Nov, 2015. History of left arm surgery. 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 Vital Signs Date Time Temp Pulse Resp B/P Pulse Ox O2 Delivery O2 Flow Rate FiO2 01/13/17 14:00 83 01/13/17 12:00 82 01/13/17 12:00 97.8 80 22 110/64 99 01/13/17 10:00 85 01/13/17 08:00 83 01/13/17 08:00 98.9 83 23 98/62 98 01/13/17 07:45 97 T-piece 40 01/13/17 07:16 100 35 01/13/17 06:00 85 01/13/17 04:00 98.6 83 18 96/54 99 01/13/17 04:00 83 01/13/17 04:00 35 01/13/17 03:55 100 35 01/13/17 02:00 81 01/13/17 00:05 99 35 01/13/17 00:00 35 01/13/17 00:00 93 01/13/17 00:00 98.5 91 25 109/60 100 01/12/17 22:13 100 35 01/12/17 22:00 92 01/12/17 20:27 100 35 01/12/17 20:00 92 01/12/17 20:00 35 01/12/17 20:00 98.6 92 25 119/66 100 01/12/17 18:00 86 01/12/17 17:01 89 19 117/61 100 01/12/17 17:00 84 19 100 01/12/17 16:30 88 13 92/61 100 01/12/17 16:00 85 01/12/17 16:00 98.0 85 18 107/64 96 01/12/17 16:00 35 01/12/17 01/12/17 01/13/17 15:00 23:00 07:00 Intake Total 1495 ml 1234 ml 974 ml Output Total 950 ml 1350 ml 1375 ml Balance 545 ml -116 ml -401 ml IV Total 757 ml 679 ml 904 ml Tube Feeding 538 ml 405 ml 70 ml Other 200 ml 150 ml Output Urine Total 950 ml 1350 ml 1375 ml # Bowel Movements 2 2 2 . Laboratory Tests Test 01/12/17 01/13/17 04:01 04:26 White Blood Count 4.0 TH/MM3 4.0 TH/MM3 Red Blood Count 3.94 MIL/MM3 3.93 MIL/MM3 Hemoglobin 8.6 GM/DL 8.5 GM/DL Hematocrit 28.3 % 28.0 % Mean Corpuscular Volume 71.8 FL 71.1 FL Mean Corpuscular Hemoglobin 21.9 PG 21.7 PG Mean Corpuscular Hemoglobin 30.4 % 30.5 % Concent Red Cell Distribution Width 19.6 % 19.6 % Platelet Count 214 TH/MM3 246 TH/MM3 Mean Platelet Volume 8.1 FL 8.3 FL Neutrophils (%) (Auto) 70.0 % 71.0 % Lymphocytes (%) (Auto) 17.9 % 18.5 % Monocytes (%) (Auto) 6.4 % 6.6 % Eosinophils (%) (Auto) 4.8 % 3.2 % Basophils (%) (Auto) 0.9 % 0.7 % Neutrophils # (Auto) 2.8 TH/MM3 2.9 TH/MM3 Lymphocytes # (Auto) 0.7 TH/MM3 0.7 TH/MM3 Monocytes # (Auto) 0.3 TH/MM3 0.3 TH/MM3 Eosinophils # (Auto) 0.2 TH/MM3 0.1 TH/MM3 Basophils # (Auto) 0.0 TH/MM3 0.0 TH/MM3 CBC Comment DIFF FINAL DIFF FINAL Differential Comment Laboratory Tests Test 01/12/17 01/13/17 04:01 04:26 Sodium Level 141 MEQ/L 142 MEQ/L Potassium Level 3.7 MEQ/L 3.4 MEQ/L Chloride Level 107 MEQ/L 104 MEQ/L Carbon Dioxide Level 26.9 MEQ/L 27.2 MEQ/L Anion Gap 7 MEQ/L 11 MEQ/L Blood Urea Nitrogen 5 MG/DL 4 MG/DL Creatinine 0.59 MG/DL 0.46 MG/DL Estimat Glomerular Filtration 140 ML/MIN 186 ML/MIN Rate Random Glucose 127 MG/DL 106 MG/DL Calcium Level 8.3 MG/DL 8.3 MG/DL Phosphorus Level 2.5 MG/DL 2.0 MG/DL Magnesium Level 1.8 MG/DL Microbiology Date/Time Procedure Status Source Growth 01/10/17 16:10 Aerobic Blood Culture - Preliminary Resulted Blood Peripheral NO GROWTH IN 3 DAYS 01/10/17 16:10 Anaerobic Blood Culture - Preliminary Resulted Blood Peripheral NO GROWTH IN 3 DAYS 01/10/17 16:15 Aerobic Blood Culture - Preliminary Resulted Blood Peripheral NO GROWTH IN 3 DAYS 01/10/17 16:15 Anaerobic Blood Culture - Preliminary Resulted Blood Peripheral NO GROWTH IN 3 DAYS Imaging Last Impressions Head CT 01/09/17 0000 Signed Impressions: Service Date/Time: December 17:43 - CONCLUSION: 1. No acute hemorrhage or mass effect. 2. 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 3. Atrophy. Gerald Mukherjee MD Chest X-Ray 01/09/17 0000 Signed Impressions: Service Date/Time: December 13:13 - CONCLUSION: 1. Mild chronic appearing changes within the pulmonary parenchyma. Tracheostomy tube in good position. Stable compared to prior. Moises Ramírez MD CT Angiography 01/09/17 0000 Signed Impressions: Service Date/Time: December 17:49 - CONCLUSION: 1. No evidence of pulmonary emboli. 2. Patchy consolidation in both posterior lower lobes right greater than left. This could represent pneumonia. 3. 2 small noncalcified pulmonary nodules which are nonspecific finding. Short-term CT followup is recommended beginning in 6 months with a noncontrast outpatient CT. Gerald Mukherjee MD Tube Change 12/31/16 0000 Signed Impressions: Service Date/Time: Saturday, December 31, 2016 16:35 - CONCLUSION: Uncomplicated gastrojejunostomy tube exchange as above. Moises Ramírez MD Tube Check 12/04/16 0000 Signed Impressions: Service Date/Time: Sunday, December 04, 2016 17:58 - CONCLUSION: Uncomplicated tube injection as above. the tube is in good position and functions normally. Moises Ramírez MD Abdomen X-Ray 08/31/16 0000 Signed Impressions: Service Date/Time: Wednesday, August 31, 2016 16:36 - CONCLUSION: 1. No acute findings. Mild constipation. Durga Dotson MD Abdomen/Pelvis CT 04/12/16 0000 Signed Impressions: Service Date/Time: Tuesday, April 12, 2016 20:52 - CONCLUSION: 1. 6.4 cm necrotic mass or abscess in the soft tissues posteriorly just below the sacrum associated with some bony destructive change of the lower most sacrum and coccyx with inflammatory changes extending into the ischiorectal fossa and into the presacral retroperitoneum predominantly on the left side. There is associated fairly marked mural thickening of the anal verge and rectum. 2. There is gastrostomy and Lopez catheter present. Stable abdominal aortic aneurysm. Durga Dotson MD Head Magnetic Resonance Angiography 03/05/16 0000 Signed Impressions: Service Date/Time: Saturday, March 05, 2016 09:26 - CONCLUSION: Persistent high-grade subtotal occlusive stenotic lesions in the distal right vertebral artery and proximal basilar artery with significant improvement in flow and recanalization following initial presentation of thrombosis. Stable interstitial circulation without significant stenosis. 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 There is decreasing restricted diffusion and increasing loss of volume characteristic of a subacute to chronic infarct. No evidence of acute infarct, acute hemorrhage mass or edema. Ernesto Kulkarni MD Neck Magnetic Resonance Angiography 12/22/15 1445 Signed Impressions: Service Date/Time: Tuesday, December 22, 2015 09:22 - CONCLUSION: Variant origin of the left vertebral artery from the aortic arch. No evidence of carotid stenosis. Glen Zamora MD Head/Brain Mag Res Venography 12/22/15 0000 Signed Impressions: Service Date/Time: Tuesday, December 22, 2015 09:22 - CONCLUSION: Normal MRV. Jonel Jones Jr., MD Physical Exam GENERAL: eyes closed , NAD SKIN: Warm to touch and dry. No generalized rash HEENT: [place] conjunctiva. . No scleral icterus. No injection or drainage. Mucous membranes pink and moist. NECK: Tracheostomy site looks okay. CARDIOVASCULAR: Regular rate and rhythm. No murmur or rub. RESPIRATORY: has diffuse rhonchi ABDOMEN: Soft, obese, non-tender, not distended. PEG site ok. BS (+) normoactive Rectal: dignishield in place with large amount of liquid brown stool EXTREMITIES: No clubbing, cyanosis. MIld pedal edema. Warm, and well perfused NEUROLOGICAL: resting , not following PSYCH: Unable to assess ; lopez in place, urine looks somewhat cloudy LINE: Peripheral IV with no evidence of infection Assessment & Plan Remarks IMPRESSION New fever, clinically sepsis (fever, lactic acidosis, hpotension , acute on chronic resp failure - new PNA, sputum with Kleb, PSAE, MSSA - new UTI , PSAE Staph epi bacteremia, low grade, 1/4 - doubt clin significance H/o resistant PSAE CVA, with significant neurologic sequela Hx NHL Acute VDRF Pt is critically ill but is stable and clinically improving Diarrhea, abx -associated RECOMMENDATION Continue cefepime dc vanco for dc flagyl dc micafungin chk stool fro C.diff Violetta Alvarez MD Jan 13, 2017 15:22
--- NOTE | 2017-01-13 16:39 | HHI.PR ---
Subjective Remarks ass transferred to ICU over night low BP , better with hydration positive blood culture CTA NO pe , bibasilar atelectatic change possible PNA , on BIPAP over weekend now on T TUBE Objective Vital Signs Date Time Temp Pulse Resp B/P Pulse Ox O2 Delivery O2 Flow Rate FiO2 01/13/17 16:00 93 01/13/17 16:00 98.4 90 20 121/66 100 01/13/17 14:00 83 01/13/17 12:00 82 01/13/17 12:00 97.8 80 22 110/64 99 01/13/17 10:00 85 01/13/17 08:00 83 01/13/17 08:00 98.9 83 23 98/62 98 01/13/17 07:45 97 T-piece 40 01/13/17 07:16 100 35 01/13/17 06:00 85 01/13/17 04:00 98.6 83 18 96/54 99 01/13/17 04:00 83 01/13/17 04:00 35 01/13/17 03:55 100 35 01/13/17 02:00 81 01/13/17 00:05 99 35 01/13/17 00:00 35 01/13/17 00:00 93 01/13/17 00:00 98.5 91 25 109/60 100 01/12/17 22:13 100 35 01/12/17 22:00 92 01/12/17 20:27 100 35 01/12/17 20:00 92 01/12/17 20:00 35 01/12/17 20:00 98.6 92 25 119/66 100 01/12/17 18:00 86 01/12/17 17:01 89 19 117/61 100 01/12/17 17:00 84 19 100 I/O 01/12/17 01/12/17 01/12/17 01/13/17 01/13/17 01/13/17 07:00 15:00 23:00 07:00 15:00 23:00 Intake Total 846 ml 1495 ml 1234 ml 974 ml 380 ml Output Total 425 ml 950 ml 1350 ml 1375 ml 1750 ml Balance 421 ml 545 ml -116 ml -401 ml -1370 ml IV Total 846 ml 757 ml 679 ml 904 ml 280 ml Tube Feeding 538 ml 405 ml 70 ml Tube Irrigant 100 ml Other 200 ml 150 ml Output Urine Total 425 ml 950 ml 1350 ml 1375 ml 1700 ml Stool Total 50 ml # Bowel Movements 2 2 2 2 Result Diagram: 01/13/17 0426 01/13/17 0426 Procedures 01/02/16 PEG placement 01/02/16 tracheostomy 07/22/2016 Wide excision of sacral skin wound, biopsy of the cavity lining and debridement. PEG tube replacement 07/29/16 Objective Remarks Laboratory Tests Test 01/05/17 01/06/17 08:35 08:41 Red Blood Count 4.43 MIL/MM3 (4.50-5.90) Hemoglobin 9.9 GM/DL (13.0-17.0) Hematocrit 32.0 % (39.0-51.0) Mean Corpuscular Volume 72.1 FL (80.0-100.0) Mean Corpuscular Hemoglobin 22.3 PG (27.0-34.0) Mean Corpuscular Hemoglobin 30.9 % Concent (32.0-36.0) Red Cell Distribution Width 19.9 % (11.6-17.2) Sodium Level 134 MEQ/L 133 MEQ/L (136-145) (136-145) Random Glucose 136 MG/DL 132 MG/DL (74-106) (74-106) Creatinine 0.59 MG/DL (0.60-1.30) GENERAL: SKIN: Warm and dry. HEAD: Atraumatic. Normocephalic. EYES: Pupils equal and round. No scleral icterus. No injection or drainage. ENT: No nasal bleeding or discharge. Mucous membranes pink and moist. NECK: Trachea midline. No JVD. TRACH. [place] CARDIOVASCULAR: Regular rate and rhythm. RESPIRATORY: No accessory muscle use. Clear to auscultation. Breath sounds equal bilaterally. GASTROINTESTINAL: Abdomen soft, non-tender, nondistended. Hepatic and splenic margins not palpable. MUSCULOSKELETAL: Extremities without clubbing, cyanosis, or edema. No obvious deformities. NEUROLOGICAL: Awake and alert. No obvious cranial nerve deficits. Motor grossly within normal limits. Five out of 5 muscle strength in the arms and legs. Normal speech. PSYCHIATRIC: Appropriate mood and affect; insight and judgment normal. Assessment and Plan Assessment and Plan impression respiratory failure CVA S/P TRACHEOSTOMY SEPSIS PLAN O2 NEEDED PULM. TOILET ANTIBIOTICS PER ID Hudson poor Brandon Taylor MD Jan 13, 2017 16:39
[2017-01-13] MEDS: PARoxetine HCL SUSP 20 MG/10 ML UDC PEG SCH (17:49)
[2017-01-13 18:33] LABS: C. DIFF EPI 027 PRESUMPTIVE NEGATIVE (NEGATIVE)
[2017-01-13] MEDS: CEFEPIME INJ 2,000 MG in SODIUM CHLORIDE 0.9% INJ 100 ML IV SCH (20:34)
[2017-01-14] VITALS (16 sets, daily range): BP systolic 97–132; BP diastolic 56–82; PULSE 82–100; RESP 14–29; TEMP 98–98.8; O2SAT 94–100
[2017-01-14] MEDS: metroNIDAZOLE 500 MG INJ 100 ML IV SCH ×3 (00:25→16:48)
[2017-01-14] MEDS: INSULIN NovoLIN REGULAR SUPPLEMENTAL SCALE SQ SCH ×4 (04:00→21:09)
[2017-01-14] MEDS: CEFEPIME INJ 2,000 MG in SODIUM CHLORIDE 0.9% INJ 100 ML IV SCH ×3 (04:59→21:07)
[2017-01-14] MEDS: ACETIC ACID 0.25% SOLN 1000 ML IRR BTL IRRIGATION SCH ×3 (04:59→21:05)
[2017-01-14] MEDS: HEPARIN SODIUM - SQ 10,000 UNITS/ML VIAL SQ SCH ×3 (05:00→21:03)
--- NOTE | 2017-01-14 06:58 | HHI.CCPN ---
Subjective Remarks/Hospital Course 59year-old male with past medical history of paroxysmal atrial fibrillation, hypertension, stage IIIa non-Hodgkin's lymphoma (s/p chemotherapy with Rituxan, [facility] 2014) presented to [facility] emergency department on 12/20 with altered mental status. When he woke up of 4 o'clock, the patient had some right facial droop associated with headaches. CT scan of the brain showed no focal or acute intracranial hemorrhage. However, there is an new area of decreased density in the left occipital lobe, suggestive of recent non hemorrhagic infarction and a decreased density in the previously noted right occipital lobe which had increased in size. The patient was recently admitted on December 06 with similar presentation and he had a right occipital juan jose hole brain biopsy done by Dr. Marin on December 13. The pathology results showed acute infarction without evidence of lymphoma. On this admission, the patient became obtunded, had sonorous respirations and can would not follow any commands. He was subsequently intubated by the emergency department physician. MRI of the brain was obtained which showed a new area of restricted diffusion within the left occipital lobe suggesting acute infarction. EKG on arrival showed A-fib with RVR at rate of 114 beats per minute. Pertinent ICU Coarse: 12/21: No events overnight. Sedated with Diprivan and intubated. For MRA brain, carotids and MRV brain today . 12/22: Patient remains intubated, off sedation. 12/23: No events overnight. Remains off sedation. Withdraws to pain. 12/24: Remains intubated, on no sedation. For repeat MRI brain today 12/25: Tolerated PSV for 4-5 hour yesterday. 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 12/26: Tolerating PSV. Opens eyes to voice, reportedly has been blinking to command but isn't doing so currently even when family encouraging him. 12/27: Continues to tolerate PSV. Follows commands via ocular movements. Weak withdraw LUE noxious stimuli. 12/28: Tolerating PSV 04/24. Family desires trach - warfarin placed on hold. MRI today per neurology. 12/29: Tolerating tube feeds. INR 2.2. Sputum culture with pansensitive klebsiella. 12/30: No neuro change. Continues to tolerate PSV 12/31: General surgery and GI planning trach / PEG tomorrow. Has low grade temp 100.2. 01/01: On full vent support. No significant neurologic changes. s/p bedside Trach and PEG. 01/02: Resuming PSV trials. Restart tube feeds. 01/03; On continuous trach collar since yesterday evening. No significant secretions. 01/04 No events overnight. Patient has been on TP's x 2 days currently on 28% FIO2. T: 100.5 last night. 01/09 Reconsult: Halicat was called as patient was found hypoxic with sats 70%, tachycardic HR 140's patient was subsequently transferred to [facility] and placed back on ventilator. Trach changed to size #6 XLT. Patient was found to have fever with T 102.1. CXR this afternoon showed mild chronic parenchymal changes. He was noted to have some bloody secretions from trach last 2 days. 01/10 Patient Patient is sedated with Diprivan and on ventilator via trach. Had T :102.5 at midnight. CTA chest last night showed no PE, CT brain no acute findings. 01/11 Patient remains on ventilator via trach and on Fentanyl infusion for sedation. T:99.8 01/12 Patient has been on CPAP 10/5 with 35% FIO2 overnight. Afebrile, tolerating tube feeds. 01/13 Patient remains on CPAP overnight. Afebrile. 01/14 Patient tolerated TP's all day yesterday placed on CPAP PS 5/PEEP:5 with 35 % FIO2 overnight. Afebrile. Objective Vital Signs Date Time Temp Pulse Resp B/P Pulse Ox O2 Delivery O2 Flow Rate FiO2 01/14/17 06:00 86 01/14/17 04:00 35 01/14/17 04:00 98.7 23 97/56 98 01/13/17 07:45 T-piece Intake and Output 01/13/17 01/13/17 01/14/17 08:00 16:00 00:00 Intake Total 974 ml 380 ml 638 ml Output Total 1375 ml 1750 ml 1350 ml Balance -401 ml -1370 ml -712 ml Result Diagram: 01/13/17 0426 01/13/17 0426 Other Results Laboratory Tests Test 01/13/17 15:00 Stool C. difficile Toxin (PCR) NEGATIVE Stl C. difficile Toxin PRESUMPTIVE Epiderm 027 NEGATIVE Imaging Last Impressions Head CT 01/09/17 0000 Signed Impressions: Service Date/Time: December 17:43 - CONCLUSION: 1. No acute hemorrhage or mass effect. 2. 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 3. Atrophy. Gerald Mukherjee MD Chest X-Ray 01/09/17 0000 Signed Impressions: Service Date/Time: December 13:13 - CONCLUSION: 1. Mild chronic appearing changes within the pulmonary parenchyma. Tracheostomy tube in good position. Stable compared to prior. Moises Ramírez MD CT Angiography 01/09/17 0000 Signed Impressions: Service Date/Time: December 17:49 - CONCLUSION: 1. No evidence of pulmonary emboli. 2. Patchy consolidation in both posterior lower lobes right greater than left. This could represent pneumonia. 3. 2 small noncalcified pulmonary nodules which are nonspecific finding. Short-term CT followup is recommended beginning in 6 months with a noncontrast outpatient CT. Gerald Mukherjee MD Tube Change 12/31/16 0000 Signed Impressions: Service Date/Time: Saturday, December 31, 2016 16:35 - CONCLUSION: Uncomplicated gastrojejunostomy tube exchange as above. Moises Ramírez MD Tube Check 12/04/16 0000 Signed Impressions: Service Date/Time: Sunday, December 04, 2016 17:58 - CONCLUSION: Uncomplicated tube injection as above. the tube is in good position and functions normally. Moises Ramírez MD Abdomen X-Ray 08/31/16 0000 Signed Impressions: Service Date/Time: Wednesday, August 31, 2016 16:36 - CONCLUSION: 1. No acute findings. Mild constipation. Durga Dotson MD Abdomen/Pelvis CT 04/12/16 0000 Signed Impressions: Service Date/Time: Tuesday, April 12, 2016 20:52 - CONCLUSION: 1. 6.4 cm necrotic mass or abscess in the soft tissues posteriorly just below the sacrum associated with some bony destructive change of the lower most sacrum and coccyx with inflammatory changes extending into the ischiorectal fossa and into the presacral retroperitoneum predominantly on the left side. There is associated fairly marked mural thickening of the anal verge and rectum. 2. There is gastrostomy and Arevalo catheter present. Stable abdominal aortic aneurysm. Durga Dotson MD Head Magnetic Resonance Angiography 03/05/16 0000 Signed Impressions: Service Date/Time: Saturday, March 05, 2016 09:26 - CONCLUSION: Persistent high-grade subtotal occlusive stenotic lesions in the distal right vertebral artery and proximal basilar artery with significant improvement in flow and recanalization following initial presentation of thrombosis. Stable interstitial circulation without significant stenosis. 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 There is decreasing restricted diffusion and increasing loss of volume characteristic of a subacute to chronic infarct. No evidence of acute infarct, acute hemorrhage mass or edema. Ernesto Kulkarni MD Neck Magnetic Resonance Angiography 12/22/15 1445 Signed Impressions: Service Date/Time: Tuesday, December 22, 2015 09:22 - CONCLUSION: Variant origin of the left vertebral artery from the aortic arch. No evidence of carotid stenosis. Glen Zamora MD Head/Brain Mag Res Venography 12/22/15 0000 Signed Impressions: Service Date/Time: Tuesday, December 22, 2015 09:22 - CONCLUSION: Normal MRV. Jonel Jones Jr., MD Objective Remarks GENERAL: Patient is 61 yo on ventilator via trach SKIN: Warm and dry. HEAD: Normocephalic. EYES: No scleral icterus. No injection or drainage. NECK: Supple, trachea midline. No JVD or lymphadenopathy. CARDIOVASCULAR: Regular rate and rhythm without murmurs, gallops, or rubs. RESPIRATORY: Breath sounds equal bilaterally. No accessory muscle use. GASTROINTESTINAL: Abdomen soft, non-tender, nondistended. MUSCULOSKELETAL: No cyanosis, or edema. Neuro: On no sedation Procedures 01/02/16 PEG placement 01/02/16 tracheostomy 07/22/2016 Wide excision of sacral skin wound, biopsy of the cavity lining and debridement. PEG tube replacement 07/29/16 VAC changes- M-W-F 4/5- GJ tube replacement Date of Insertion: Jan 02, 2017 A/P Assessment and Plan Imp 1) Acute on chronic resp failure 2)s/p trach and PEG tube placement 3)s/p CVA 4)HCAP 5)UTI 6)Hyponatremia 7)Hx NHL 8)Hx Afib 9)DM 10)Stage IV deub ulcer 11)Anemia 12)Leukocytosis Plan Neuro: Monitor neuro status, Off sedation On Keppra 500mg BID. 01/10: CT brain: No acute hemorrhage or mass effect. 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 Atrophy. Last MRI brain 02/2016: Evolving brainstem and bilateral occipital lobe infarcts with evidence of subacute hemorrhagic products. There is decreasing restricted diffusion and increasing loss of volume characteristic of a subacute to chronic infarct. No evidence of acute infarct, acute hemorrhage mass or edema. Pulm: Continue with vent support keep sat >92%. Trach changed to size #6 XLT on 01/09 Bronchodilators, ICU vent bundle. SBT/TP trials as karlie 01/09 CTA chest: No PE, + pneumonia. Check CXR CV: Monitor HR and BP keep MAP>65mmHg. On ASA 325mg daily, Cardizem 30mg QID Lactic acid 2.7 : Monitor renal function, I/O's, electrolytes replacement per protocol. GI: On Protonix 40mg Q12, on tube feeds( Glucerna 1.5 @ 45ml/hr) ID: Continue abx ( Cefepime) Monitor for signs of infections ( Fever, WBC) strep pneumonia and Legionella urinary Ag is negative C-diff PCR negative on 01/13 01/09 BC : Staph Epi, Urine cx: Pseudomonas, Sputum cx: Pseudomonas, kleb, Staph 01/10: BC: NGTD Heme: Monitor CBC Endo: On SSI (low scale) for glycemic control GI prophylaxis with Protonix 40mg Q12 DVT prophylaxis with SCD and Heparin SQ Follow up on labs Level 3 Wil Langston MD Jan 14, 2017 06:58 Wil Langston MD Jan 14, 2017 06:58
[2017-01-14 07:11] LABS: AUTOMATED NEUTROPHIL # 2.6 TH/MM3 (1.8-7.7); EOSINOPHIL # 0.1 TH/MM3 (0-0.4); EOSINOPHIL % 3.6 % (0.0-4.0); HEMATOCRIT 25.8 % (39.0-51.0); HEMO FLAGS DIFF FINAL; LYMPH % 19.7 % (9.0-44.0); LYMPHOCYTE # 0.8 TH/MM3 (1.0-4.8); MEAN CELL VOLUME 71.5 FL (80.0-100.0); MEAN CORPUSCULAR HEMOGLOBIN 21.8 PG (27.0-34.0); MEAN CORPUSCULAR HGB CONC 30.5 % (32.0-36.0); MONO % 7.1 % (0.0-8.0); NEUT % 68.6 % (16.0-70.0); PLATELET COUNT 250 TH/MM3 (150-450); RED CELL DISTRIBUTION WIDTH 19.7 % (11.6-17.2); WHITE BLOOD COUNT 3.8 TH/MM3 (4.0-11.0)
[2017-01-14 07:30] LABS: POTASSIUM 3.7 MEQ/L (3.5-5.1)
[2017-01-14 07:35] LABS: BICARBONATE 27.3 MEQ/L (21.0-32.0)
[2017-01-14] MEDS: NYSTATIN 100,000 U/GM PWD 15 GM BTL TOPICAL SCH ×2 (08:10→21:04)
[2017-01-14] MEDS: ARTIFICIAL TEARS OPTH SOLN 15 ML BTL EACH EYE SCH ×2 (08:10→21:04)
[2017-01-14] MEDS: BACITRACIN TOP OINT 15 GM TUBE TOP SCH ×2 (08:12→21:04)
[2017-01-14] MEDS: SODIUM CHLORIDE 0.65% NASAL SPRAY 45 ML BTL NASAL SCH ×2 (08:12→21:04)
[2017-01-14] MEDS: ASPIRIN 325 MG TAB TUBE SCH (08:13)
[2017-01-14] MEDS: LACTULOSE SYRUP 20 GM/30 ML CUP PEG SCH (08:13)
[2017-01-14] MEDS: levETIRAcetam 500 MG/5 ML UDC TUBE SCH ×2 (08:14→21:07)
--- NOTE | 2017-01-14 08:19 | RADRPT ---
EXAM DATE/TIME: 01/14/2017 07:39 [facility] COMPARISON: CHEST SINGLE AP, January 09, 2017, 13:13. INDICATIONS : Short of breath. MEDICAL HISTORY : Hypertension. Diabetes mellitus type II. SURGICAL HISTORY : None. ENCOUNTER: Subsequent ACUITY: 3 weeks PAIN SCORE: Non-responsive. LOCATION: Bilateral chest FINDINGS: A tracheostomy tube has its tip in good position 3 cm above the geno. Bibasilar patchiness is note d consistent with atelectasis and/or infiltrates. The heart is stable. CONCLUSION: 1. Bibasilar patchiness consistent with atelectasis and/or infiltrates. Clinical correlation is rec ommended. Eduardo Valenzuela MD on January 14, 2017 at 8:12 Board Certified Radiologist. This report was verified electronically.
[2017-01-14] MEDS: DILTIAZEM HCL 30 MG TAB PEG SCH ×4 (08:28→21:06)
[2017-01-14] MEDS: MAGNESIUM HYDROXIDE SUSP 30 ML CUP PEG SCH (08:29)
[2017-01-14] MEDS: PANTOPRAZOLE SODIUM 40 MG VIAL IV PUSH SCH ×2 (10:07→21:07)
[2017-01-14] MEDS: SENNOSIDES SYRUP 8.8 MG/5 ML CUP PEG SCH (16:00)
--- NOTE | 2017-01-14 18:38 | HHI.PR ---
Subjective Remarks ass transferred to ICU over night low BP , better with hydration positive blood culture CTA NO pe , bibasilar atelectatic change possible PNA , on BIPAP over weekend now on T TUBE Objective Vital Signs Date Time Temp Pulse Resp B/P Pulse Ox O2 Delivery O2 Flow Rate FiO2 01/14/17 16:00 82 01/14/17 16:00 98.3 100 29 132/82 100 01/14/17 14:00 94 01/14/17 12:00 84 01/14/17 12:00 98.0 84 16 122/68 95 01/14/17 10:00 91 01/14/17 08:00 98.7 84 14 109/67 97 01/14/17 08:00 84 01/14/17 08:00 96 T-Piece 15.00 40 01/14/17 07:25 99 T-piece 35 01/14/17 06:00 86 01/14/17 04:00 35 01/14/17 04:00 89 01/14/17 04:00 98.7 89 23 97/56 98 01/14/17 03:35 94 35 01/14/17 02:00 83 01/14/17 02:00 90 01/14/17 00:42 99 35 01/14/17 00:00 98.8 83 19 98/61 100 01/14/17 00:00 83 01/14/17 00:00 35 01/13/17 22:00 84 01/13/17 20:23 100 35 01/13/17 20:00 99.2 86 18 116/74 100 01/13/17 20:00 86 01/13/17 20:00 35 I/O 01/13/17 01/13/17 01/13/17 01/14/17 01/14/17 01/14/17 07:00 15:00 23:00 07:00 15:00 23:00 Intake Total 974 ml 380 ml 638 ml 650 ml 990 ml Output Total 1375 ml 1750 ml 1350 ml 850 ml 1650 ml Balance -401 ml -1370 ml -712 ml -200 ml -660 ml IV Total 904 ml 280 ml 313 ml 200 ml 380 ml Tube Feeding 70 ml 205 ml 350 ml 410 ml Tube Irrigant 100 ml 200 ml Other 120 ml 100 ml Output Urine Total 1375 ml 1700 ml 1250 ml 650 ml 1250 ml Stool Total 50 ml 100 ml 200 ml 400 ml # Bowel Movements 2 Result Diagram: 01/14/17 0502 01/14/17 0502 Procedures 01/02/16 PEG placement 01/02/16 tracheostomy 07/22/2016 Wide excision of sacral skin wound, biopsy of the cavity lining and debridement. PEG tube replacement 07/29/16 Objective Remarks Laboratory Tests Test 01/05/17 01/06/17 08:35 08:41 Red Blood Count 4.43 MIL/MM3 (4.50-5.90) Hemoglobin 9.9 GM/DL (13.0-17.0) Hematocrit 32.0 % (39.0-51.0) Mean Corpuscular Volume 72.1 FL (80.0-100.0) Mean Corpuscular Hemoglobin 22.3 PG (27.0-34.0) Mean Corpuscular Hemoglobin 30.9 % Concent (32.0-36.0) Red Cell Distribution Width 19.9 % (11.6-17.2) Sodium Level 134 MEQ/L 133 MEQ/L (136-145) (136-145) Random Glucose 136 MG/DL 132 MG/DL (74-106) (74-106) Creatinine 0.59 MG/DL (0.60-1.30) GENERAL: SKIN: Warm and dry. HEAD: Atraumatic. Normocephalic. EYES: Pupils equal and round. No scleral icterus. No injection or drainage. ENT: No nasal bleeding or discharge. Mucous membranes pink and moist. NECK: Trachea midline. No JVD. TRACH. [place] CARDIOVASCULAR: Regular rate and rhythm. RESPIRATORY: No accessory muscle use. Clear to auscultation. Breath sounds equal bilaterally. GASTROINTESTINAL: Abdomen soft, non-tender, nondistended. Hepatic and splenic margins not palpable. MUSCULOSKELETAL: Extremities without clubbing, cyanosis, or edema. No obvious deformities. NEUROLOGICAL: Awake and alert. No obvious cranial nerve deficits. Motor grossly within normal limits. Five out of 5 muscle strength in the arms and legs. Normal speech. PSYCHIATRIC: Appropriate mood and affect; insight and judgment normal. Assessment and Plan Assessment and Plan impression respiratory failure CVA S/P TRACHEOSTOMY SEPSIS PLAN O2 NEEDED PULM. TOILET ANTIBIOTICS PER ID [place] Brandon Moy MD Jan 14, 2017 18:38
[2017-01-14] MEDS: PARoxetine HCL SUSP 20 MG/10 ML UDC PEG SCH (18:52)
[2017-01-15] VITALS (16 sets, daily range): BP systolic 117–141; BP diastolic 1–80; PULSE 88–103; RESP 14–27; TEMP 98.3–99; O2SAT 94–100
[2017-01-15] MEDS: metroNIDAZOLE 500 MG INJ 100 ML IV SCH ×2 (01:55→07:36)
[2017-01-15] MEDS: INSULIN NovoLIN REGULAR SUPPLEMENTAL SCALE SQ SCH ×4 (04:00→21:20)
[2017-01-15] MEDS: CEFEPIME INJ 2,000 MG in SODIUM CHLORIDE 0.9% INJ 100 ML IV SCH ×3 (05:31→21:17)
[2017-01-15] MEDS: HEPARIN SODIUM - SQ 10,000 UNITS/ML VIAL SQ SCH ×3 (05:31→21:20)
[2017-01-15] MEDS: ACETIC ACID 0.25% SOLN 1000 ML IRR BTL IRRIGATION SCH ×3 (05:31→21:22)
[2017-01-15 05:40] LABS: AUTOMATED NEUTROPHIL # 3.4 TH/MM3 (1.8-7.7); BASOPHIL % 1.1 % (0.0-2.0); EOSINOPHIL # 0.1 TH/MM3 (0-0.4); EOSINOPHIL % 2.5 % (0.0-4.0); HEMATOCRIT 28.4 % (39.0-51.0); HEMO FLAGS DIFF FINAL; LYMPH % 17.3 % (9.0-44.0); LYMPHOCYTE # 0.8 TH/MM3 (1.0-4.8); MEAN CELL VOLUME 71.7 FL (80.0-100.0); MEAN CORPUSCULAR HGB CONC 30.7 % (32.0-36.0); NEUT % 73.1 % (16.0-70.0); PLATELET COUNT 276 TH/MM3 (150-450); RED BLOOD COUNT 3.95 MIL/MM3 (4.50-5.90); RED CELL DISTRIBUTION WIDTH 19.9 % (11.6-17.2); WHITE BLOOD COUNT 4.7 TH/MM3 (4.0-11.0)
[2017-01-15 05:59] LABS: BICARBONATE 26.6 MEQ/L (21.0-32.0); MAGNESIUM 1.9 MG/DL (1.5-2.5); POTASSIUM 3.9 MEQ/L (3.5-5.1)
[2017-01-15] MEDS: DILTIAZEM HCL 30 MG TAB PEG SCH ×4 (07:35→21:18)
[2017-01-15] MEDS: LACTULOSE SYRUP 20 GM/30 ML CUP PEG SCH (07:35)
[2017-01-15] MEDS: ASPIRIN 325 MG TAB TUBE SCH (07:35)
[2017-01-15] MEDS: MAGNESIUM HYDROXIDE SUSP 30 ML CUP PEG SCH (07:35)
[2017-01-15] MEDS: BACITRACIN TOP OINT 15 GM TUBE TOP SCH ×2 (07:37→21:18)
[2017-01-15] MEDS: SODIUM CHLORIDE 0.65% NASAL SPRAY 45 ML BTL NASAL SCH ×2 (07:37→21:17)
[2017-01-15] MEDS: NYSTATIN 100,000 U/GM PWD 15 GM BTL TOPICAL SCH ×2 (07:37→21:18)
[2017-01-15] MEDS: levETIRAcetam 500 MG/5 ML UDC TUBE SCH ×2 (07:37→21:18)
[2017-01-15] MEDS: ARTIFICIAL TEARS OPTH SOLN 15 ML BTL EACH EYE SCH ×2 (07:37→21:17)
[2017-01-15] MEDS: PANTOPRAZOLE SODIUM 40 MG VIAL IV PUSH SCH ×2 (10:27→21:19)
[2017-01-15] MEDS: SODIUM PHOSPHATE INJ 30 MMOL in SODIUM CHLOR 0.9% 250 ML INJ 240 ML IV PRN (10:28)
--- NOTE | 2017-01-15 14:38 | HHI.CCPN ---
Subjective Remarks/Hospital Course 59year-old male with past medical history of paroxysmal atrial fibrillation, hypertension, stage IIIa non-Hodgkin's lymphoma (s/p chemotherapy with Rituxan, [facility] 2014) presented to [facility] emergency department on 12/20 with altered mental status. When he woke up of 4 o'clock, the patient had some right facial droop associated with headaches. CT scan of the brain showed no focal or acute intracranial hemorrhage. However, there is an new area of decreased density in the left occipital lobe, suggestive of recent non hemorrhagic infarction and a decreased density in the previously noted right occipital lobe which had increased in size. The patient was recently admitted on December 06 with similar presentation and he had a right occipital juan jose hole brain biopsy done by Dr. Marin on December 13. The pathology results showed acute infarction without evidence of lymphoma. On this admission, the patient became obtunded, had sonorous respirations and can would not follow any commands. He was subsequently intubated by the emergency department physician. MRI of the brain was obtained which showed a new area of restricted diffusion within the left occipital lobe suggesting acute infarction. EKG on arrival showed A-fib with RVR at rate of 114 beats per minute. Pertinent ICU Coarse: 12/21: No events overnight. Sedated with Diprivan and intubated. For MRA brain, carotids and MRV brain today . 12/22: Patient remains intubated, off sedation. 12/23: No events overnight. Remains off sedation. Withdraws to pain. 12/24: Remains intubated, on no sedation. For repeat MRI brain today 12/25: Tolerated PSV for 4-5 hour yesterday. 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 12/26: Tolerating PSV. Opens eyes to voice, reportedly has been blinking to command but isn't doing so currently even when family encouraging him. 12/27: Continues to tolerate PSV. Follows commands via ocular movements. Weak withdraw LUE noxious stimuli. 12/28: Tolerating PSV 04/24. Family desires trach - warfarin placed on hold. MRI today per neurology. 12/29: Tolerating tube feeds. INR 2.2. Sputum culture with pansensitive klebsiella. 12/30: No neuro change. Continues to tolerate PSV 12/31: General surgery and GI planning trach / PEG tomorrow. Has low grade temp 100.2. 01/01: On full vent support. No significant neurologic changes. s/p bedside Trach and PEG. 01/02: Resuming PSV trials. Restart tube feeds. 01/03; On continuous trach collar since yesterday evening. No significant secretions. 01/04 No events overnight. Patient has been on TP's x 2 days currently on 28% FIO2. T: 100.5 last night. 01/09 Reconsult: Halicat was called as patient was found hypoxic with sats 70%, tachycardic HR 140's patient was subsequently transferred to [facility] and placed back on ventilator. Trach changed to size #6 XLT. Patient was found to have fever with T 102.1. CXR this afternoon showed mild chronic parenchymal changes. He was noted to have some bloody secretions from trach last 2 days. 01/10 Patient Patient is sedated with Diprivan and on ventilator via trach. Had T :102.5 at midnight. CTA chest last night showed no PE, CT brain no acute findings. 01/11 Patient remains on ventilator via trach and on Fentanyl infusion for sedation. T:99.8 01/12 Patient has been on CPAP 10/5 with 35% FIO2 overnight. Afebrile, tolerating tube feeds. 01/13 Patient remains on CPAP overnight. Afebrile. 01/14 Patient tolerated TP's all day yesterday placed on CPAP PS 5/PEEP:5 with 35 % FIO2 overnight. Afebrile. 01/15: Tolerated TP several hours yesterday, CPAP at night. No acute events overnight Objective Vital Signs Date Time Temp Pulse Resp B/P Pulse Ox O2 Delivery O2 Flow Rate FiO2 01/15/17 12:00 98.9 92 25 117/1 96 01/15/17 07:16 T-piece 35 01/14/17 08:00 15.00 Intake and Output 01/14/17 01/14/17 01/15/17 08:00 16:00 00:00 Intake Total 650 ml 990 ml 674 ml Output Total 850 ml 1650 ml 950 ml Balance -200 ml -660 ml -276 ml Result Diagram: 01/15/17 0305 01/15/17 0305 Imaging Last Impressions Head CT 01/09/17 0000 Signed Impressions: Service Date/Time: December 17:43 - CONCLUSION: 1. No acute hemorrhage or mass effect. 2. 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 3. Atrophy. Gerald Mukherjee MD Chest X-Ray 01/09/17 0000 Signed Impressions: Service Date/Time: December 13:13 - CONCLUSION: 1. Mild chronic appearing changes within the pulmonary parenchyma. Tracheostomy tube in good position. Stable compared to prior. Moises Ramírez MD CT Angiography 01/09/17 0000 Signed Impressions: Service Date/Time: December 17:49 - CONCLUSION: 1. No evidence of pulmonary emboli. 2. Patchy consolidation in both posterior lower lobes right greater than left. This could represent pneumonia. 3. 2 small noncalcified pulmonary nodules which are nonspecific finding. Short-term CT followup is recommended beginning in 6 months with a noncontrast outpatient CT. Gerald Mukherjee MD Tube Change 12/31/16 0000 Signed Impressions: Service Date/Time: Saturday, December 31, 2016 16:35 - CONCLUSION: Uncomplicated gastrojejunostomy tube exchange as above. Moises Ramírez MD Tube Check 12/04/16 0000 Signed Impressions: Service Date/Time: Sunday, December 04, 2016 17:58 - CONCLUSION: Uncomplicated tube injection as above. the tube is in good position and functions normally. Moises Ramírez MD Abdomen X-Ray 08/31/16 0000 Signed Impressions: Service Date/Time: Wednesday, August 31, 2016 16:36 - CONCLUSION: 1. No acute findings. Mild constipation. Durga Dotson MD Abdomen/Pelvis CT 04/12/16 0000 Signed Impressions: Service Date/Time: Tuesday, April 12, 2016 20:52 - CONCLUSION: 1. 6.4 cm necrotic mass or abscess in the soft tissues posteriorly just below the sacrum associated with some bony destructive change of the lower most sacrum and coccyx with inflammatory changes extending into the ischiorectal fossa and into the presacral retroperitoneum predominantly on the left side. There is associated fairly marked mural thickening of the anal verge and rectum. 2. There is gastrostomy and Arevalo catheter present. Stable abdominal aortic aneurysm. Durga Dotson MD Head Magnetic Resonance Angiography 03/05/16 0000 Signed Impressions: Service Date/Time: Saturday, March 05, 2016 09:26 - CONCLUSION: Persistent high-grade subtotal occlusive stenotic lesions in the distal right vertebral artery and proximal basilar artery with significant improvement in flow and recanalization following initial presentation of thrombosis. Stable interstitial circulation without significant stenosis. 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 There is decreasing restricted diffusion and increasing loss of volume characteristic of a subacute to chronic infarct. No evidence of acute infarct, acute hemorrhage mass or edema. Ernesto Kulkarni MD Neck Magnetic Resonance Angiography 12/22/15 1445 Signed Impressions: Service Date/Time: Tuesday, December 22, 2015 09:22 - CONCLUSION: Variant origin of the left vertebral artery from the aortic arch. No evidence of carotid stenosis. Glen Zamora MD Head/Brain Mag Res Venography 12/22/15 0000 Signed Impressions: Service Date/Time: Tuesday, December 22, 2015 09:22 - CONCLUSION: Normal MRV. Jonel Jones Jr., MD Objective Remarks GENERAL: Patient is 61 yo on ventilator via trach SKIN: Warm and dry. HEAD: Normocephalic. EYES: No scleral icterus. No injection or drainage. NECK: Supple, trachea midline. No JVD or lymphadenopathy. CARDIOVASCULAR: Regular rate and rhythm without murmurs, gallops, or rubs. RESPIRATORY: Breath sounds equal bilaterally. No accessory muscle use. GASTROINTESTINAL: Abdomen soft, non-tender, nondistended. MUSCULOSKELETAL: No cyanosis, or edema. Neuro: On no sedation. Eyes are open, do not track. Withdraws lower extremities to pain Procedures 01/02/16 PEG placement 01/02/16 tracheostomy 07/22/2016 Wide excision of sacral skin wound, biopsy of the cavity lining and debridement. PEG tube replacement 07/29/16 VAC changes- M-W-F 4/5- GJ tube replacement Date of Insertion: Jan 02, 2017 A/P Assessment and Plan Imp Acute on chronic resp failure HCAP UTI s/p CVA s/p trach and PEG tube placement Hyponatremia Hx NHL Hx Afib DM Stage IV deub ulcer Anemia Leukocytosis Plan Neuro: Monitor neuro status, Off sedation. On Keppra 500mg BID. 01/10: CT brain: No acute hemorrhage or mass effect. 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 Atrophy. Last MRI brain 02/2016: Evolving brainstem and bilateral occipital lobe infarcts with evidence of subacute hemorrhagic products. There is decreasing restricted diffusion and increasing loss of volume characteristic of a subacute to chronic infarct. No evidence of acute infarct, acute hemorrhage mass or edema. Pulm: Continue with vent support keep sat >92%. Trach changed to size #6 XLT on 01/09 Bronchodilators, ICU vent bundle. SBT/TP trials as karlie. Leave on TP as tolerated 01/09 CTA chest: No PE, + pneumonia. CV: Monitor HR and BP keep MAP>65mmHg. On ASA 325mg daily, Cardizem 30mg QID Lactic acid 2.7 : Monitor renal function, I/O's, electrolytes replacement per protocol. GI: On Protonix 40mg Q12, on tube feeds( Glucerna 1.5 @ 45ml/hr) ID: Continue abx ( Cefepime) Monitor for signs of infections ( Fever, WBC) strep pneumonia and Legionella urinary Ag is negative C-diff PCR negative on 01/13 01/09 BC : Staph Epi, Urine cx: Pseudomonas, Sputum cx: Pseudomonas, kleb, Staph 01/10: BC: NGTD Heme: Monitor CBC Endo: On SSI (low scale) for glycemic control GI prophylaxis with Protonix 40mg Q12 DVT prophylaxis with SCD and Heparin SQ Follow up on labs Level 3 Natty Carroll MD Jan 15, 2017 14:38
--- NOTE | 2017-01-15 15:08 | HHI.IDPN ---
Subjective Subjective Remarks clinically improving On Tpiece Afebrile Large amount of stool buyt C.diff is negative toleartinfg tube feeds at goal Antibiotics cefepime flagyl Lines Peripheral IV Past Medical History Hypertension. Stage III non-Hodgkin's lymphoma. Diabetes mellitus. Paroxysmal atrial fibrillation. Brain biopsy in Nov, 2015. History of left arm surgery. 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 Vital Signs Date Time Temp Pulse Resp B/P Pulse Ox O2 Delivery O2 Flow Rate FiO2 01/15/17 12:00 98.9 92 25 117/1 96 01/15/17 12:00 92 01/15/17 10:00 96 01/15/17 08:00 95 01/15/17 08:00 98.3 95 27 131/80 98 01/15/17 07:16 96 T-piece 35 01/15/17 06:00 102 01/15/17 04:00 35 01/15/17 04:00 98.5 103 26 141/79 97 01/15/17 04:00 103 01/15/17 03:30 100 35 01/15/17 02:00 98 01/15/17 01:00 99 35 01/15/17 01:00 35 01/15/17 00:00 94 01/15/17 00:00 98.4 94 25 131/80 97 01/14/17 22:00 91 01/14/17 20:00 88 01/14/17 20:00 88 26 132/76 100 01/14/17 19:47 100 T-piece 35 01/14/17 18:00 100 01/14/17 16:00 82 01/14/17 16:00 98.3 100 29 132/82 100 01/14/17 01/14/17 01/15/17 15:00 23:00 07:00 Intake Total 990 ml 674 ml 466 ml Output Total 1650 ml 950 ml 450 ml Balance -660 ml -276 ml 16 ml IV Total 380 ml 237 ml 139 ml Tube Feeding 410 ml 337 ml 267 ml Tube Irrigant 200 ml Other 100 ml 60 ml Output Urine Total 1250 ml 750 ml 350 ml Stool Total 400 ml 200 ml 100 ml . Laboratory Tests Test 01/14/17 01/15/17 05:02 03:05 White Blood Count 3.8 TH/MM3 4.7 TH/MM3 Red Blood Count 3.60 MIL/MM3 3.95 MIL/MM3 Hemoglobin 7.9 GM/DL 8.7 GM/DL Hematocrit 25.8 % 28.4 % Mean Corpuscular Volume 71.5 FL 71.7 FL Mean Corpuscular Hemoglobin 21.8 PG 22.0 PG Mean Corpuscular Hemoglobin 30.5 % 30.7 % Concent Red Cell Distribution Width 19.7 % 19.9 % Platelet Count 250 TH/MM3 276 TH/MM3 Mean Platelet Volume 8.3 FL 8.4 FL Neutrophils (%) (Auto) 68.6 % 73.1 % Lymphocytes (%) (Auto) 19.7 % 17.3 % Monocytes (%) (Auto) 7.1 % 6.0 % Eosinophils (%) (Auto) 3.6 % 2.5 % Basophils (%) (Auto) 1.0 % 1.1 % Neutrophils # (Auto) 2.6 TH/MM3 3.4 TH/MM3 Lymphocytes # (Auto) 0.8 TH/MM3 0.8 TH/MM3 Monocytes # (Auto) 0.3 TH/MM3 0.3 TH/MM3 Eosinophils # (Auto) 0.1 TH/MM3 0.1 TH/MM3 Basophils # (Auto) 0.0 TH/MM3 0.0 TH/MM3 CBC Comment DIFF FINAL DIFF FINAL Differential Comment Laboratory Tests Test 01/14/17 01/15/17 05:02 03:05 Sodium Level 140 MEQ/L 136 MEQ/L Potassium Level 3.7 MEQ/L 3.9 MEQ/L Chloride Level 105 MEQ/L 103 MEQ/L Carbon Dioxide Level 27.3 MEQ/L 26.6 MEQ/L Anion Gap 8 MEQ/L 6 MEQ/L Blood Urea Nitrogen 4 MG/DL 6 MG/DL Creatinine 0.46 MG/DL 0.44 MG/DL Estimat Glomerular Filtration 186 ML/MIN 196 ML/MIN Rate Random Glucose 124 MG/DL 133 MG/DL Calcium Level 8.3 MG/DL 8.5 MG/DL Phosphorus Level 2.8 MG/DL 2.4 MG/DL Magnesium Level 2.0 MG/DL 1.9 MG/DL Imaging Last Impressions Chest X-Ray 01/14/17 0000 Signed Impressions: Service Date/Time: Saturday, January 14, 2017 07:39 - CONCLUSION: 1. Bibasilar patchiness consistent with atelectasis and/or infiltrates. Clinical correlation is recommended. Eduardo Valenzuela MD Head CT 01/09/17 0000 Signed Impressions: Service Date/Time: December 17:43 - CONCLUSION: 1. No acute hemorrhage or mass effect. 2. 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 3. Atrophy. Gerald Mukherjee MD CT Angiography 01/09/17 0000 Signed Impressions: Service Date/Time: December 17:49 - CONCLUSION: 1. No evidence of pulmonary emboli. 2. Patchy consolidation in both posterior lower lobes right greater than left. This could represent pneumonia. 3. 2 small noncalcified pulmonary nodules which are nonspecific finding. Short-term CT followup is recommended beginning in 6 months with a noncontrast outpatient CT. Gerald Mukherjee MD Tube Change 12/31/16 0000 Signed Impressions: Service Date/Time: Saturday, December 31, 2016 16:35 - CONCLUSION: Uncomplicated gastrojejunostomy tube exchange as above. Moises Ramírez MD Tube Check 12/04/16 0000 Signed Impressions: Service Date/Time: Sunday, December 04, 2016 17:58 - CONCLUSION: Uncomplicated tube injection as above. the tube is in good position and functions normally. Moises Ramírez MD Abdomen X-Ray 08/31/16 0000 Signed Impressions: Service Date/Time: Wednesday, August 31, 2016 16:36 - CONCLUSION: 1. No acute findings. Mild constipation. Durga Dotson MD Abdomen/Pelvis CT 04/12/16 0000 Signed Impressions: Service Date/Time: Tuesday, April 12, 2016 20:52 - CONCLUSION: 1. 6.4 cm necrotic mass or abscess in the soft tissues posteriorly just below the sacrum associated with some bony destructive change of the lower most sacrum and coccyx with inflammatory changes extending into the ischiorectal fossa and into the presacral retroperitoneum predominantly on the left side. There is associated fairly marked mural thickening of the anal verge and rectum. 2. There is gastrostomy and Lopez catheter present. Stable abdominal aortic aneurysm. Durga Dotson MD Head Magnetic Resonance Angiography 03/05/16 0000 Signed Impressions: Service Date/Time: Saturday, March 05, 2016 09:26 - CONCLUSION: Persistent high-grade subtotal occlusive stenotic lesions in the distal right vertebral artery and proximal basilar artery with significant improvement in flow and recanalization following initial presentation of thrombosis. Stable interstitial circulation without significant stenosis. 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 There is decreasing restricted diffusion and increasing loss of volume characteristic of a subacute to chronic infarct. No evidence of acute infarct, acute hemorrhage mass or edema. Ernesto Kulkarni MD Neck Magnetic Resonance Angiography 12/22/15 1445 Signed Impressions: Service Date/Time: Tuesday, December 22, 2015 09:22 - CONCLUSION: Variant origin of the left vertebral artery from the aortic arch. No evidence of carotid stenosis. Glen Zamora MD Head/Brain Mag Res Venography 12/22/15 0000 Signed Impressions: Service Date/Time: Tuesday, December 22, 2015 09:22 - CONCLUSION: Normal MRV. Jonel Jones Jr., MD Physical Exam GENERAL: eyes closed , NAD SKIN: Warm to touch and dry. No generalized rash HEENT: [place] conjunctiva. . No scleral icterus. No injection or drainage. Mucous membranes pink and moist. NECK: Tracheostomy site looks okay. No secretions in the tubings noted CARDIOVASCULAR: Regular rate and rhythm. No murmur or rub. RESPIRATORY: clear to auscultation ABDOMEN: Soft, obese, non-tender, not distended. PEG site ok. BS (+) normoactive Rectal: dignishield in place with large amount of liquid brown stool EXTREMITIES: No clubbing, cyanosis. MIld pedal edema. Warm, and well perfused NEUROLOGICAL: resting , not following. 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
[2017-01-15] MEDS: SENNOSIDES SYRUP 8.8 MG/5 ML CUP PEG SCH (15:55)
--- NOTE | 2017-01-15 18:23 | HHI.PR ---
Subjective Remarks ass transferred to ICU over night low BP , better with hydration positive blood culture CTA NO pe , bibasilar atelectatic change possible PNA , on BIPAP over weekend now on T TUBE Objective Vital Signs Date Time Temp Pulse Resp B/P Pulse Ox O2 Delivery O2 Flow Rate FiO2 01/15/17 16:00 98.7 93 14 118/75 94 01/15/17 16:00 93 01/15/17 14:00 93 01/15/17 12:00 98.9 92 25 117/71 96 01/15/17 12:00 92 01/15/17 10:00 96 01/15/17 08:00 95 01/15/17 08:00 98.3 95 27 131/80 98 01/15/17 07:16 96 T-piece 35 01/15/17 06:00 102 01/15/17 04:00 35 01/15/17 04:00 98.5 103 26 141/79 97 01/15/17 04:00 103 01/15/17 03:30 100 35 01/15/17 02:00 98 01/15/17 01:00 99 35 01/15/17 01:00 35 01/15/17 00:00 94 01/15/17 00:00 98.4 94 25 131/80 97 01/14/17 22:00 91 01/14/17 20:00 88 01/14/17 20:00 88 26 132/76 100 01/14/17 19:47 100 T-piece 35 I/O 01/14/17 01/14/17 01/14/17 01/15/17 01/15/17 01/15/17 07:00 15:00 23:00 07:00 15:00 23:00 Intake Total 650 ml 990 ml 674 ml 466 ml 921 ml Output Total 850 ml 1650 ml 950 ml 450 ml 1150 ml Balance -200 ml -660 ml -276 ml 16 ml -229 ml IV Total 200 ml 380 ml 237 ml 139 ml 465 ml Tube Feeding 350 ml 410 ml 337 ml 267 ml 356 ml Tube Irrigant 200 ml Other 100 ml 100 ml 60 ml 100 ml Output Urine Total 650 ml 1250 ml 750 ml 350 ml 500 ml Stool Total 200 ml 400 ml 200 ml 100 ml 650 ml Result Diagram: 01/15/17 0305 01/15/17 0305 Procedures 01/02/16 PEG placement 01/02/16 tracheostomy 07/22/2016 Wide excision of sacral skin wound, biopsy of the cavity lining and debridement. PEG tube replacement 07/29/16 Objective Remarks Laboratory Tests Test 01/05/17 01/06/17 08:35 08:41 Red Blood Count 4.43 MIL/MM3 (4.50-5.90) Hemoglobin 9.9 GM/DL (13.0-17.0) Hematocrit 32.0 % (39.0-51.0) Mean Corpuscular Volume 72.1 FL (80.0-100.0) Mean Corpuscular Hemoglobin 22.3 PG (27.0-34.0) Mean Corpuscular Hemoglobin 30.9 % Concent (32.0-36.0) Red Cell Distribution Width 19.9 % (11.6-17.2) Sodium Level 134 MEQ/L 133 MEQ/L (136-145) (136-145) Random Glucose 136 MG/DL 132 MG/DL (74-106) (74-106) Creatinine 0.59 MG/DL (0.60-1.30) GENERAL: SKIN: Warm and dry. HEAD: Atraumatic. Normocephalic. EYES: Pupils equal and round. No scleral icterus. No injection or drainage. ENT: No nasal bleeding or discharge. Mucous membranes pink and moist. NECK: Trachea midline. No JVD. TRACH. [place] CARDIOVASCULAR: Regular rate and rhythm. RESPIRATORY: No accessory muscle use. Clear to auscultation. Breath sounds equal bilaterally. GASTROINTESTINAL: Abdomen soft, non-tender, nondistended. Hepatic and splenic margins not palpable. MUSCULOSKELETAL: Extremities without clubbing, cyanosis, or edema. No obvious deformities. NEUROLOGICAL: Awake and alert. No obvious cranial nerve deficits. Motor grossly within normal limits. Five out of 5 muscle strength in the arms and legs. Normal speech. PSYCHIATRIC: Appropriate mood and affect; insight and judgment normal. Assessment and Plan Assessment and Plan impression respiratory failure CVA S/P TRACHEOSTOMY SEPSIS PLAN O2 NEEDED PULM. TOILET ANTIBIOTICS PER ID [place] Bradnon Moy MD Jan 15, 2017 18:23
[2017-01-15] MEDS: PARoxetine HCL SUSP 20 MG/10 ML UDC PEG SCH (18:51)
[2017-01-16] VITALS (14 sets, daily range): BP systolic 108–134; BP diastolic 73–81; PULSE 82–101; RESP 22–26; TEMP 98.7–99.3; O2SAT 94–98
[2017-01-16] MEDS: INSULIN NovoLIN REGULAR SUPPLEMENTAL SCALE SQ SCH ×4 (04:00→22:00)
[2017-01-16] MEDS: CEFEPIME INJ 2,000 MG in SODIUM CHLORIDE 0.9% INJ 100 ML IV SCH ×3 (05:19→20:45)
[2017-01-16] MEDS: ACETIC ACID 0.25% SOLN 1000 ML IRR BTL IRRIGATION SCH ×3 (05:20→20:44)
[2017-01-16] MEDS: HEPARIN SODIUM - SQ 10,000 UNITS/ML VIAL SQ SCH ×3 (05:20→20:44)
[2017-01-16] MEDS: NYSTATIN 100,000 U/GM PWD 15 GM BTL TOPICAL SCH ×2 (07:53→20:45)
[2017-01-16] MEDS: BACITRACIN TOP OINT 15 GM TUBE TOP SCH ×2 (07:54→20:45)
[2017-01-16] MEDS: ARTIFICIAL TEARS OPTH SOLN 15 ML BTL EACH EYE SCH ×2 (07:54→20:46)
[2017-01-16] MEDS: LACTULOSE SYRUP 20 GM/30 ML CUP PEG SCH (07:54)
[2017-01-16] MEDS: levETIRAcetam 500 MG/5 ML UDC TUBE SCH ×2 (07:54→20:43)
[2017-01-16] MEDS: ASPIRIN 325 MG TAB TUBE SCH (07:55)
[2017-01-16] MEDS: DILTIAZEM HCL 30 MG TAB PEG SCH ×4 (07:55→20:43)
[2017-01-16] MEDS: MAGNESIUM HYDROXIDE SUSP 30 ML CUP PEG SCH (07:58)
[2017-01-16] MEDS: SODIUM CHLORIDE 0.65% NASAL SPRAY 45 ML BTL NASAL SCH ×2 (07:58→20:46)
--- NOTE | 2017-01-16 09:16 | HHI.CCPN ---
Subjective Remarks/Hospital Course 59year-old male with past medical history of paroxysmal atrial fibrillation, hypertension, stage IIIa non-Hodgkin's lymphoma (s/p chemotherapy with Rituxan, [facility] 2014) presented to [facility] emergency department on 12/20 with altered mental status. When he woke up of 4 o'clock, the patient had some right facial droop associated with headaches. CT scan of the brain showed no focal or acute intracranial hemorrhage. However, there is an new area of decreased density in the left occipital lobe, suggestive of recent non hemorrhagic infarction and a decreased density in the previously noted right occipital lobe which had increased in size. The patient was recently admitted on December 06 with similar presentation and he had a right occipital juan jose hole brain biopsy done by Dr. Marin on December 13. The pathology results showed acute infarction without evidence of lymphoma. On this admission, the patient became obtunded, had sonorous respirations and can would not follow any commands. He was subsequently intubated by the emergency department physician. MRI of the brain was obtained which showed a new area of restricted diffusion within the left occipital lobe suggesting acute infarction. EKG on arrival showed A-fib with RVR at rate of 114 beats per minute. Pertinent ICU Coarse: 12/21: No events overnight. Sedated with Diprivan and intubated. For MRA brain, carotids and MRV brain today . 12/22: Patient remains intubated, off sedation. 12/23: No events overnight. Remains off sedation. Withdraws to pain. 12/24: Remains intubated, on no sedation. For repeat MRI brain today 12/25: Tolerated PSV for 4-5 hour yesterday. 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 12/26: Tolerating PSV. Opens eyes to voice, reportedly has been blinking to command but isn't doing so currently even when family encouraging him. 12/27: Continues to tolerate PSV. Follows commands via ocular movements. Weak withdraw LUE noxious stimuli. 12/28: Tolerating PSV 04/24. Family desires trach - warfarin placed on hold. MRI today per neurology. 12/29: Tolerating tube feeds. INR 2.2. Sputum culture with pansensitive klebsiella. 12/30: No neuro change. Continues to tolerate PSV 12/31: General surgery and GI planning trach / PEG tomorrow. Has low grade temp 100.2. 01/01: On full vent support. No significant neurologic changes. s/p bedside Trach and PEG. 01/02: Resuming PSV trials. Restart tube feeds. 01/03; On continuous trach collar since yesterday evening. No significant secretions. 01/04 No events overnight. Patient has been on TP's x 2 days currently on 28% FIO2. T: 100.5 last night. 01/09 Reconsult: Halicat was called as patient was found hypoxic with sats 70%, tachycardic HR 140's patient was subsequently transferred to [facility] and placed back on ventilator. Trach changed to size #6 XLT. Patient was found to have fever with T 102.1. CXR this afternoon showed mild chronic parenchymal changes. He was noted to have some bloody secretions from trach last 2 days. 01/10 Patient Patient is sedated with Diprivan and on ventilator via trach. Had T :102.5 at midnight. CTA chest last night showed no PE, CT brain no acute findings. 01/11 Patient remains on ventilator via trach and on Fentanyl infusion for sedation. T:99.8 01/12 Patient has been on CPAP 10/5 with 35% FIO2 overnight. Afebrile, tolerating tube feeds. 01/13 Patient remains on CPAP overnight. Afebrile. 01/14 Patient tolerated TP's all day yesterday placed on CPAP PS 5/PEEP:5 with 35 % FIO2 overnight. Afebrile. 01/15: Tolerated TP several hours yesterday, CPAP at night. No acute events overnight 01/16: Remained on TPs last 24 hours. No acute events reported last night. Discussed with ID yesterday because of clinical improvement continuing cefepime Objective Vital Signs Date Time Temp Pulse Resp B/P Pulse Ox O2 Delivery O2 Flow Rate FiO2 01/16/17 08:14 97 T-piece 35 01/16/17 08:00 98.9 87 24 112/73 01/15/17 19:33 6.00 Intake and Output 01/15/17 01/15/17 01/16/17 08:00 16:00 00:00 Intake Total 466 ml 921 ml 521 ml Output Total 450 ml 1150 ml 650 ml Balance 16 ml -229 ml -129 ml Result Diagram: 01/15/17 0305 01/15/17 0305 Imaging Last Impressions Head CT 01/09/17 0000 Signed Impressions: Service Date/Time: December 17:43 - CONCLUSION: 1. No acute hemorrhage or mass effect. 2. 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 3. Atrophy. Gerald Mukherjee MD Chest X-Ray 01/09/17 0000 Signed Impressions: Service Date/Time: December 13:13 - CONCLUSION: 1. Mild chronic appearing changes within the pulmonary parenchyma. Tracheostomy tube in good position. Stable compared to prior. Moises Ramírez MD CT Angiography 01/09/17 0000 Signed Impressions: Service Date/Time: December 17:49 - CONCLUSION: 1. No evidence of pulmonary emboli. 2. Patchy consolidation in both posterior lower lobes right greater than left. This could represent pneumonia. 3. 2 small noncalcified pulmonary nodules which are nonspecific finding. Short-term CT followup is recommended beginning in 6 months with a noncontrast outpatient CT. Gerald Mukherjee MD Tube Change 12/31/16 0000 Signed Impressions: Service Date/Time: Saturday, December 31, 2016 16:35 - CONCLUSION: Uncomplicated gastrojejunostomy tube exchange as above. Moises Ramírez MD Tube Check 12/04/16 0000 Signed Impressions: Service Date/Time: Sunday, December 04, 2016 17:58 - CONCLUSION: Uncomplicated tube injection as above. the tube is in good position and functions normally. Moises Ramírez MD Abdomen X-Ray 08/31/16 0000 Signed Impressions: Service Date/Time: Wednesday, August 31, 2016 16:36 - CONCLUSION: 1. No acute findings. Mild constipation. Durga Dotson MD Abdomen/Pelvis CT 04/12/16 0000 Signed Impressions: Service Date/Time: Tuesday, April 12, 2016 20:52 - CONCLUSION: 1. 6.4 cm necrotic mass or abscess in the soft tissues posteriorly just below the sacrum associated with some bony destructive change of the lower most sacrum and coccyx with inflammatory changes extending into the ischiorectal fossa and into the presacral retroperitoneum predominantly on the left side. There is associated fairly marked mural thickening of the anal verge and rectum. 2. There is gastrostomy and Arevalo catheter present. Stable abdominal aortic aneurysm. Durga Dotson MD Head Magnetic Resonance Angiography 03/05/16 0000 Signed Impressions: Service Date/Time: Saturday, March 05, 2016 09:26 - CONCLUSION: Persistent high-grade subtotal occlusive stenotic lesions in the distal right vertebral artery and proximal basilar artery with significant improvement in flow and recanalization following initial presentation of thrombosis. Stable interstitial circulation without significant stenosis. 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 There is decreasing restricted diffusion and increasing loss of volume characteristic of a subacute to chronic infarct. No evidence of acute infarct, acute hemorrhage mass or edema. Ernesto Kulkarni MD Neck Magnetic Resonance Angiography 12/22/15 1445 Signed Impressions: Service Date/Time: Tuesday, December 22, 2015 09:22 - CONCLUSION: Variant origin of the left vertebral artery from the aortic arch. No evidence of carotid stenosis. Glen Zamora MD Head/Brain Mag Res Venography 12/22/15 0000 Signed Impressions: Service Date/Time: Tuesday, December 22, 2015 09:22 - CONCLUSION: Normal MRV. Jonel Jones Jr., MD Objective Remarks GENERAL: Patient is 61 yo on TP via trach SKIN: Warm and dry. HEAD: Normocephalic. EYES: No scleral icterus. No injection or drainage. NECK: Supple, trachea midline. No JVD or lymphadenopathy. CARDIOVASCULAR: Regular rate and rhythm without murmurs, gallops, or rubs. RESPIRATORY: Breath sounds equal bilaterally. No accessory muscle use. GASTROINTESTINAL: Abdomen soft, non-tender, nondistended. MUSCULOSKELETAL: No cyanosis, or edema. Neuro: On no sedation. Eyes are open, do not track. Withdraws lower extremities to pain Procedures 01/02/16 PEG placement 01/02/16 tracheostomy 07/22/2016 Wide excision of sacral skin wound, biopsy of the cavity lining and debridement. PEG tube replacement 07/29/16 VAC changes- M-W-F 4/5- GJ tube replacement Date of Insertion: Jan 02, 2017 A/P Assessment and Plan Imp Acute on chronic resp failure HCAP UTI s/p CVA s/p trach and PEG tube placement Hyponatremia Hx NHL Hx Afib DM Stage IV deub ulcer Anemia Leukocytosis Plan Neuro: Monitor neuro status, Off sedation. On Keppra 500mg BID. 01/10: CT brain: No acute hemorrhage or mass effect. 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 Atrophy. Last MRI brain 02/2016: Evolving brainstem and bilateral occipital lobe infarcts with evidence of subacute hemorrhagic products. There is decreasing restricted diffusion and increasing loss of volume characteristic of a subacute to chronic infarct. No evidence of acute infarct, acute hemorrhage mass or edema. Pulm: Continue with vent support keep sat >92%. Trach changed to size #6 XLT on 01/09 Bronchodilators, ICU vent bundle. SBT/TP trials as karlie. Leave on TP as tolerated 01/09 CTA chest: No PE, + pneumonia. CXR 01/17 ordered CV: Monitor HR and BP keep MAP>65mmHg. On ASA 325mg daily, Cardizem 30mg QID Lactic acid 2.7 : Monitor renal function, I/O's, electrolytes replacement per protocol. GI: On Protonix 40mg Q12, on tube feeds( Glucerna 1.5 @ 45ml/hr) ID: Continue abx ( Cefepime) Monitor for signs of infections ( Fever, WBC) strep pneumonia and Legionella urinary Ag is negative C-diff PCR negative on 01/13 01/09 BC : Staph Epi, Urine cx: Pseudomonas, Sputum cx: Pseudomonas, kleb, Staph. (Pseudomonas in sputum is only intermediately sensitive to cefepime, clinically improving. Discussed with Kim on 01/15/17. Continue cefepime and less clinical change. This could be colonized sedation) 01/10: BC: NGTD Heme: Monitor CBC Endo: On SSI (low scale) for glycemic control GI prophylaxis with Protonix 40mg Q12 DVT prophylaxis with SCD and Heparin SQ Level 2 Natty Carroll MD Jan 16, 2017 09:16
[2017-01-16] MEDS: PANTOPRAZOLE SODIUM 40 MG VIAL IV PUSH SCH ×2 (09:56→20:44)
[2017-01-16] MEDS: SENNOSIDES SYRUP 8.8 MG/5 ML CUP PEG SCH (15:04)
--- NOTE | 2017-01-16 16:16 | HHI.PR ---
Subjective Remarks ass transferred to ICU over night low BP , better with hydration positive blood culture CTA NO pe , bibasilar atelectatic change possible PNA , on BIPAP over weekend now on T TUBE Objective Vital Signs Date Time Temp Pulse Resp B/P Pulse Ox O2 Delivery O2 Flow Rate FiO2 01/16/17 14:00 82 01/16/17 12:00 87 01/16/17 12:00 98.9 87 24 112/73 97 01/16/17 10:00 87 01/16/17 10:00 98.9 87 24 112/73 97 01/16/17 08:14 97 T-piece 35 01/16/17 08:00 98.9 87 24 112/73 97 01/16/17 08:00 87 01/16/17 06:00 93 01/16/17 04:00 92 01/16/17 04:00 98.7 92 24 126/77 94 01/16/17 02:00 91 01/16/17 00:00 95 01/16/17 00:00 99.3 95 26 134/81 98 01/15/17 22:00 94 01/15/17 20:00 90 01/15/17 20:00 99.0 90 19 131/77 96 01/15/17 19:33 96 T-piece 6.00 35 01/15/17 18:00 88 I/O 01/15/17 01/15/17 01/15/17 01/16/17 01/16/17 01/16/17 07:00 15:00 23:00 07:00 15:00 23:00 Intake Total 466 ml 921 ml 521 ml 376 ml 791 ml Output Total 450 ml 1150 ml 650 ml 650 ml 1300 ml Balance 16 ml -229 ml -129 ml -274 ml -509 ml IV Total 139 ml 465 ml 268 ml 28 ml 236 ml Tube Feeding 267 ml 356 ml 193 ml 288 ml 435 ml Other 60 ml 100 ml 60 ml 60 ml 120 ml Output Urine Total 350 ml 500 ml 550 ml 450 ml 1050 ml Stool Total 100 ml 650 ml 100 ml 200 ml 250 ml Result Diagram: 01/15/17 0305 01/15/17 0305 Procedures 01/02/16 PEG placement 01/02/16 tracheostomy 07/22/2016 Wide excision of sacral skin wound, biopsy of the cavity lining and debridement. PEG tube replacement 07/29/16 Objective Remarks Laboratory Tests Test 01/05/17 01/06/17 08:35 08:41 Red Blood Count 4.43 MIL/MM3 (4.50-5.90) Hemoglobin 9.9 GM/DL (13.0-17.0) Hematocrit 32.0 % (39.0-51.0) Mean Corpuscular Volume 72.1 FL (80.0-100.0) Mean Corpuscular Hemoglobin 22.3 PG (27.0-34.0) Mean Corpuscular Hemoglobin 30.9 % Concent (32.0-36.0) Red Cell Distribution Width 19.9 % (11.6-17.2) Sodium Level 134 MEQ/L 133 MEQ/L (136-145) (136-145) Random Glucose 136 MG/DL 132 MG/DL (74-106) (74-106) Creatinine 0.59 MG/DL (0.60-1.30) GENERAL: SKIN: Warm and dry. HEAD: Atraumatic. Normocephalic. EYES: Pupils equal and round. No scleral icterus. No injection or drainage. ENT: No nasal bleeding or discharge. Mucous membranes pink and moist. NECK: Trachea midline. No JVD. TRACH. [place] CARDIOVASCULAR: Regular rate and rhythm. RESPIRATORY: No accessory muscle use. Clear to auscultation. Breath sounds equal bilaterally. GASTROINTESTINAL: Abdomen soft, non-tender, nondistended. Hepatic and splenic margins not palpable. MUSCULOSKELETAL: Extremities without clubbing, cyanosis, or edema. No obvious deformities. NEUROLOGICAL: Awake and alert. No obvious cranial nerve deficits. Motor grossly within normal limits. Five out of 5 muscle strength in the arms and legs. Normal speech. PSYCHIATRIC: Appropriate mood and affect; insight and judgment normal. Assessment and Plan Assessment and Plan impression respiratory failure CVA S/P TRACHEOSTOMY SEPSIS PLAN O2 NEEDED PULM. TOILET ANTIBIOTICS PER ID F/U CXRAY [place] poor Brandon Taylor MD Jan 16, 2017 16:15
[2017-01-16] MEDS: PARoxetine HCL SUSP 20 MG/10 ML UDC PEG SCH (18:00)
[2017-01-17] VITALS (20 sets, daily range): BP systolic 115–138; BP diastolic 71–83; PULSE 94–105; RESP 22–32; TEMP 98.7–99.3; O2SAT 92–100
[2017-01-17] MEDS: INSULIN NovoLIN REGULAR SUPPLEMENTAL SCALE SQ SCH ×4 (04:00→21:38)
--- NOTE | 2017-01-17 04:33 | RADRPT ---
EXAM DATE/TIME: 01/17/2017 03:27 [facility] COMPARISON: CHEST SINGLE AP, January 14, 2017, 7:39. INDICATIONS : Respiratory disease, pt intubated. MEDICAL HISTORY : Hypertension. Diabetes mellitus type II. SURGICAL HISTORY : None. ENCOUNTER: Subsequent ACUITY: 3 weeks PAIN SCORE: Non-responsive. LOCATION: Bilateral chest FINDINGS: Tracheostomy tube is present in satisfactory position. There is atelectasis in both lung bases. Focal consolidation is not seen. Heart and mediastinum are unremarkable for technique. CONCLUSION: Bibasilar atelectasis. Smith Gusman MD on January 17, 2017 at 4:31 Board Certified Radiologist. This report was verified electronically.
[2017-01-17] MEDS: CEFEPIME INJ 2,000 MG in SODIUM CHLORIDE 0.9% INJ 100 ML IV SCH ×3 (04:47→20:09)
[2017-01-17] MEDS: HEPARIN SODIUM - SQ 10,000 UNITS/ML VIAL SQ SCH ×3 (04:48→21:37)
[2017-01-17] MEDS: ACETIC ACID 0.25% SOLN 1000 ML IRR BTL IRRIGATION SCH ×3 (04:48→20:10)
[2017-01-17 06:06] LABS: AUTOMATED NEUTROPHIL # 3.2 TH/MM3 (1.8-7.7); BASOPHIL # 0.1 TH/MM3 (0-0.2); BASOPHIL % 1.4 % (0.0-2.0); EOSINOPHIL # 0.1 TH/MM3 (0-0.4); EOSINOPHIL % 3.1 % (0.0-4.0); HEMATOCRIT 30.5 % (39.0-51.0); HEMO FLAGS DIFF FINAL; LYMPH % 22.5 % (9.0-44.0); LYMPHOCYTE # 1.1 TH/MM3 (1.0-4.8); MEAN CELL VOLUME 71.6 FL (80.0-100.0); MEAN CORPUSCULAR HEMOGLOBIN 22.2 PG (27.0-34.0); MONO % 6.2 % (0.0-8.0); NEUT % 66.8 % (16.0-70.0); PLATELET COUNT 296 TH/MM3 (150-450); RED BLOOD COUNT 4.26 MIL/MM3 (4.50-5.90); RED CELL DISTRIBUTION WIDTH 19.9 % (11.6-17.2); WHITE BLOOD COUNT 4.8 TH/MM3 (4.0-11.0)
[2017-01-17 06:37] LABS: ALT (GPT) 15 U/L (12-78); ANION GAP 8 MEQ/L (5-15); AST (GOT) 14 U/L (15-37); BICARBONATE 27.2 MEQ/L (21.0-32.0); BLOOD UREA NITROGEN 9 MG/DL (7-18); CHLORIDE 101 MEQ/L (98-107); GLOMERULAR FILTRATION RATE 125 ML/MIN (>89); POTASSIUM 4.4 MEQ/L (3.5-5.1); SODIUM (NA) 136 MEQ/L (136-145)
[2017-01-17 07:03] LABS: ALKALINE PHOSPHATASE 65 U/L (45-117); TOTAL BILIRUBIN ADULT 0.3 MG/DL (0.2-1.0)
[2017-01-17] MEDS: MAGNESIUM HYDROXIDE SUSP 30 ML CUP PEG SCH (09:00)
[2017-01-17] MEDS: ARTIFICIAL TEARS OPTH SOLN 15 ML BTL EACH EYE SCH ×2 (09:00→20:10)
[2017-01-17] MEDS: LACTULOSE SYRUP 20 GM/30 ML CUP PEG SCH (09:00)
[2017-01-17] MEDS: SODIUM CHLORIDE 0.65% NASAL SPRAY 45 ML BTL NASAL SCH ×2 (09:00→20:09)
[2017-01-17] MEDS: NYSTATIN 100,000 U/GM PWD 15 GM BTL TOPICAL SCH ×2 (09:00→20:09)
[2017-01-17] MEDS: BACITRACIN TOP OINT 15 GM TUBE TOP SCH ×2 (09:00→20:10)
--- NOTE | 2017-01-17 10:02 | HHI.CCPN ---
Subjective Remarks/Hospital Course 59year-old male with past medical history of paroxysmal atrial fibrillation, hypertension, stage IIIa non-Hodgkin's lymphoma (s/p chemotherapy with Rituxan, [facility] 2014) presented to [facility] emergency department on 12/20 with altered mental status. When he woke up of 4 o'clock, the patient had some right facial droop associated with headaches. CT scan of the brain showed no focal or acute intracranial hemorrhage. However, there is an new area of decreased density in the left occipital lobe, suggestive of recent non hemorrhagic infarction and a decreased density in the previously noted right occipital lobe which had increased in size. The patient was recently admitted on December 06 with similar presentation and he had a right occipital juan jose hole brain biopsy done by Dr. Marin on December 13. The pathology results showed acute infarction without evidence of lymphoma. On this admission, the patient became obtunded, had sonorous respirations and can would not follow any commands. He was subsequently intubated by the emergency department physician. MRI of the brain was obtained which showed a new area of restricted diffusion within the left occipital lobe suggesting acute infarction. EKG on arrival showed A-fib with RVR at rate of 114 beats per minute. Pertinent ICU Coarse: 12/21: No events overnight. Sedated with Diprivan and intubated. For MRA brain, carotids and MRV brain today . 12/22: Patient remains intubated, off sedation. 12/23: No events overnight. Remains off sedation. Withdraws to pain. 12/24: Remains intubated, on no sedation. For repeat MRI brain today 12/25: Tolerated PSV for 4-5 hour yesterday. 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 12/26: Tolerating PSV. Opens eyes to voice, reportedly has been blinking to command but isn't doing so currently even when family encouraging him. 12/27: Continues to tolerate PSV. Follows commands via ocular movements. Weak withdraw LUE noxious stimuli. 12/28: Tolerating PSV 04/24. Family desires trach - warfarin placed on hold. MRI today per neurology. 12/29: Tolerating tube feeds. INR 2.2. Sputum culture with pansensitive klebsiella. 12/30: No neuro change. Continues to tolerate PSV 12/31: General surgery and GI planning trach / PEG tomorrow. Has low grade temp 100.2. 01/01: On full vent support. No significant neurologic changes. s/p bedside Trach and PEG. 01/02: Resuming PSV trials. Restart tube feeds. 01/03; On continuous trach collar since yesterday evening. No significant secretions. 01/04 No events overnight. Patient has been on TP's x 2 days currently on 28% FIO2. T: 100.5 last night. 01/09 Reconsult: Halicat was called as patient was found hypoxic with sats 70%, tachycardic HR 140's patient was subsequently transferred to [facility] and placed back on ventilator. Trach changed to size #6 XLT. Patient was found to have fever with T 102.1. CXR this afternoon showed mild chronic parenchymal changes. He was noted to have some bloody secretions from trach last 2 days. 01/10 Patient Patient is sedated with Diprivan and on ventilator via trach. Had T :102.5 at midnight. CTA chest last night showed no PE, CT brain no acute findings. 01/11 Patient remains on ventilator via trach and on Fentanyl infusion for sedation. T:99.8 01/12 Patient has been on CPAP 10/5 with 35% FIO2 overnight. Afebrile, tolerating tube feeds. 01/13 Patient remains on CPAP overnight. Afebrile. 01/14 Patient tolerated TP's all day yesterday placed on CPAP PS 5/PEEP:5 with 35 % FIO2 overnight. Afebrile. 01/15: Tolerated TP several hours yesterday, CPAP at night. No acute events overnight 01/16: Remained on TPs last 24 hours. No acute events reported last night. Discussed with ID yesterday because of clinical improvement continuing cefepime 01/17: Afebrile. On T piece 60 hours. J-tube currently plugged. Will ask IR if they can intervene. Tolerating tube feeding otherwise. Positive BM. Objective Vital Signs Date Time Temp Pulse Resp B/P Pulse Ox O2 Delivery O2 Flow Rate FiO2 01/17/17 09:20 98 T-piece 35 01/17/17 08:00 101 01/17/17 08:00 98.8 22 138/83 01/15/17 19:33 6.00 Intake and Output 01/16/17 01/16/17 01/17/17 08:00 16:00 00:00 Intake Total 376 ml 791 ml 593 ml Output Total 650 ml 1300 ml 1000 ml Balance -274 ml -509 ml -407 ml Result Diagram: 01/17/17 0508 01/17/17 0508 Imaging Last Impressions Chest X-Ray 01/17/17 0600 Signed Impressions: Service Date/Time: Tuesday, January 17, 2017 03:27 - CONCLUSION: Bibasilar atelectasis. K. Shaggy Gusman MD Head CT 01/09/17 0000 Signed Impressions: Service Date/Time: December 17:43 - CONCLUSION: 1. No acute hemorrhage or mass effect. 2. 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 3. Atrophy. Gerald Mukherjee MD CT Angiography 01/09/17 0000 Signed Impressions: Service Date/Time: December 17:49 - CONCLUSION: 1. No evidence of pulmonary emboli. 2. Patchy consolidation in both posterior lower lobes right greater than left. This could represent pneumonia. 3. 2 small noncalcified pulmonary nodules which are nonspecific finding. Short-term CT followup is recommended beginning in 6 months with a noncontrast outpatient CT. Gerald Mukherjee MD Tube Change 12/31/16 0000 Signed Impressions: Service Date/Time: Saturday, December 31, 2016 16:35 - CONCLUSION: Uncomplicated gastrojejunostomy tube exchange as above. Moises Ramírez MD Tube Check 12/04/16 0000 Signed Impressions: Service Date/Time: Sunday, December 04, 2016 17:58 - CONCLUSION: Uncomplicated tube injection as above. the tube is in good position and functions normally. Moises Ramírez MD Abdomen X-Ray 08/31/16 0000 Signed Impressions: Service Date/Time: Wednesday, August 31, 2016 16:36 - CONCLUSION: 1. No acute findings. Mild constipation. Durga Dotson MD Abdomen/Pelvis CT 04/12/16 0000 Signed Impressions: Service Date/Time: Tuesday, April 12, 2016 20:52 - CONCLUSION: 1. 6.4 cm necrotic mass or abscess in the soft tissues posteriorly just below the sacrum associated with some bony destructive change of the lower most sacrum and coccyx with inflammatory changes extending into the ischiorectal fossa and into the presacral retroperitoneum predominantly on the left side. There is associated fairly marked mural thickening of the anal verge and rectum. 2. There is gastrostomy and Arevalo catheter present. Stable abdominal aortic aneurysm. Durga Dotson MD Head Magnetic Resonance Angiography 03/05/16 0000 Signed Impressions: Service Date/Time: Saturday, March 05, 2016 09:26 - CONCLUSION: Persistent high-grade subtotal occlusive stenotic lesions in the distal right vertebral artery and proximal basilar artery with significant improvement in flow and recanalization following initial presentation of thrombosis. Stable interstitial circulation without significant stenosis. 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 There is decreasing restricted diffusion and increasing loss of volume characteristic of a subacute to chronic infarct. No evidence of acute infarct, acute hemorrhage mass or edema. Ernesto Kulkarni MD Neck Magnetic Resonance Angiography 12/22/15 1445 Signed Impressions: Service Date/Time: Tuesday, December 22, 2015 09:22 - CONCLUSION: Variant origin of the left vertebral artery from the aortic arch. No evidence of carotid stenosis. Glen Zamora MD Head/Brain Mag Res Venography 12/22/15 0000 Signed Impressions: Service Date/Time: Tuesday, December 22, 2015 09:22 - CONCLUSION: Normal MRV. Jonel Jones Jr., MD Objective Remarks GENERAL: 61 yo male, currently resting in bed on TP via trach SKIN: Warm and dry. No rash. Noted decubitus ulcer coccyx HEAD: Normocephalic. EYES: No scleral icterus. No injection or drainage. NECK: Supple, trachea midline. No JVD or lymphadenopathy. CARDIOVASCULAR: Tachycardic, RR. S1, S2 no S4. Currently without murmurs, gallops, or rubs. RESPIRATORY: Breath sounds equal bilaterally and symmetrical no accessory muscle use. GASTROINTESTINAL: Abdomen soft, non-tender, nondistended. GJ tube is clean dry and intact. MUSCULOSKELETAL: No significant peripheral edema. Neuro: On no sedation. Eyes are open, do not track. Withdraws lower extremities to pain only Procedures 01/02/16 PEG placement 01/02/16 tracheostomy 07/22/2016 Wide excision of sacral skin wound, biopsy of the cavity lining and debridement. PEG tube replacement 07/29/16 VAC changes- M-W-F /- GJ tube replacement Date of Insertion: Jan 02, 2017 A/P Assessment and Plan Neuro/Psych: Initial hospitalization [place] and cerebellar CVA with Basilar artery thrombosis Status post brain biopsy on December 13: Path report - acute infarct, no evidence of lymphoma Depression Monitor neuro status, Off sedation. On Keppra 500mg BID - 750 twice a day home prior to arrival. 01/10: CT brain: No acute hemorrhage or mass effect. 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 Atrophy. MRI brain 02/2016: Evolving brainstem and bilateral occipital lobe infarcts with evidence of subacute hemorrhagic products. There is decreasing restricted diffusion and increasing loss of volume characteristic of a subacute to chronic infarct. No evidence of acute infarct, acute hemorrhage mass or edema. 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 On Ativan 0.5 mg every 4 hours when necessary anxiety. On acetaminophen with codeine for pain scale of 2-10. Pulm: Vent dependent respiratory failure Right upper lobe/right middle lobe pulmonary nodules - outpatient CT scan without contrast in 6 months to follow-up Continue with vent support keep sat >92%. Trach changed to size #6 XLT on 01/09 Duo nebs every 6 hours ICU vent bundle. SBT/TP trials as karlie. Leave on TP 10/02 as tolerated 01/09 CTA chest: No PE, bilateral lower lobe infiltrates. 4 mm right upper lobe /5 mm right middle lobe nodule.. CV: History of paroxysmal atrial fibrillation currently in sinus tachycardia Hypertension Dyslipidemia Monitor HR and BP keep MAP>65mmHg. O n ASA 325mg daily, Cardizem 30mg QID Previously on sotalol 40 mg a night for paroxysmal fibrillation. Holding Lipitor 40 mg by mouth daily for dyslipidemia. Holding Vasotec 20 mg by mouth daily for hypertension. Lactic acid 2.7 Renal//FEN: Monitor renal function, Accurate I/O's electrolytes replacement per protocol. GI: Mild protein calorie malnutrition Gastroesophageal reflux disease On Protonix 40mg Q12, on tube feeds( Glucerna 1.5 @ 45ml/hr) J-tube is currently plugged. Last INR state they can be cannulated ID: Klebsiella/Pseudomonas/staph aureus HCAP Klebsiella UTI Continue abx ( Cefepime) Monitor for signs of infections ( Fever, WBC) strep pneumonia and Legionella urinary Ag is negative C-diff PCR negative on 01/13 01/09 BC : Staph Epi, Urine cx: Pseudomonas, Sputum cx: Pseudomonas, kleb, Staph. (Pseudomonas in sputum is only intermediately sensitive to cefepime, clinically improving. Discussed with Kim on 01/15/17. Continue cefepime and less clinical change. This could be colonized sedation) 01/10: BC: NGTD Heme: Normocytic anemia Stage III a non-Hodgkin's lymphoma - s/p chemotherapy 2014 Monitor CBC Endo: History of diabetes mellitus On SSI (low scale) for glycemic control On metformin 500 daily at home. Derm Stage IV decubitus ulcers Dressing changes daily GI prophylaxis with Protonix 40mg Q12 DVT prophylaxis with SCD and Heparin SQ Level 2 Deandre Ritchie MD Jan 17, 2017 10:02 Deandre Ritchie MD Jan 17, 2017 10:02
[2017-01-17] MEDS: ASPIRIN 325 MG TAB TUBE SCH (10:06)
[2017-01-17] MEDS: DILTIAZEM HCL 30 MG TAB PEG SCH ×4 (10:06→20:10)
[2017-01-17] MEDS: levETIRAcetam 500 MG/5 ML UDC TUBE SCH ×2 (10:06→20:09)
[2017-01-17] MEDS: PANTOPRAZOLE SODIUM 40 MG VIAL IV PUSH SCH ×2 (10:08→21:37)
--- NOTE | 2017-01-17 12:25 | PD.WCN.NOT ---
Wound Consult Description: Follow up of wound to sacrum Communicated with: CHAPITO Boogie Recommendation: No new recommendations at this time. Wound Care team follows patient every 2 weeks. Additional Information: Patient seen on [facility] for sacral wound dressing change, evaluation, measurements with family members at bedside. Patient positioned to his left side for removal of dressing. Wound was cleansed with NS and gauze. Wound is noted with ~70% muscle and 30% bone with serosang drainage noted to gauze pads used for cleansing. Wound margins are epithelializing and slightly macerated. Periwound is unremarkable with blanching discoloration. Wound measures 2.9cm x 1.4cm x 1.6cm with 5.6cm of undermining circumferentially. Wound was packed with betadine moistened rolled yasemin and covered with ABD pad and paper tape to secure. Fecal bag in place and reinforced with dressing change to sacrum. Ting Richards [facility] Jan 17, 2017 12:25
[2017-01-17] MEDS: SENNOSIDES SYRUP 8.8 MG/5 ML CUP PEG SCH (16:00)
--- NOTE | 2017-01-17 18:41 | HHI.PR ---
Subjective Remarks ass transferred to ICU over night low BP , better with hydration positive blood culture CTA NO pe , bibasilar atelectatic change possible PNA , on BIPAP over weekend now on T TUBE Objective Vital Signs Date Time Temp Pulse Resp B/P Pulse Ox O2 Delivery O2 Flow Rate FiO2 01/17/17 16:00 101 01/17/17 16:00 98.8 100 22 123/71 98 01/17/17 14:00 101 01/17/17 12:00 98.7 97 22 122/74 98 01/17/17 12:00 101 01/17/17 10:00 101 01/17/17 09:20 98 T-piece 35 01/17/17 08:00 101 01/17/17 08:00 98.8 97 22 138/83 98 01/17/17 06:00 94 01/17/17 04:00 99 01/17/17 04:00 98.8 101 22 133/83 98 01/17/17 02:00 95 01/17/17 00:00 99.0 97 28 133/81 97 01/17/17 00:00 97 01/16/17 22:00 93 01/16/17 20:00 101 01/16/17 20:00 98.7 101 22 109/75 96 01/16/17 19:26 98 T-piece 35 I/O 01/16/17 01/16/17 01/16/17 01/17/17 01/17/17 01/17/17 07:00 15:00 23:00 07:00 15:00 23:00 Intake Total 376 ml 791 ml 593 ml 458 ml 710 ml Output Total 650 ml 1300 ml 1000 ml 500 ml 1100 ml Balance -274 ml -509 ml -407 ml -42 ml -390 ml IV Total 28 ml 236 ml 129 ml 85 ml 180 ml Tube Feeding 288 ml 435 ml 404 ml 313 ml 350 ml Tube Irrigant 0 ml Other 60 ml 120 ml 60 ml 60 ml 180 ml Output Urine Total 450 ml 1050 ml 800 ml 400 ml 950 ml Stool Total 200 ml 250 ml 200 ml 100 ml 150 ml Result Diagram: 01/17/17 0508 01/17/17 0508 Procedures 01/02/16 PEG placement 01/02/16 tracheostomy 07/22/2016 Wide excision of sacral skin wound, biopsy of the cavity lining and debridement. PEG tube replacement 07/29/16 Objective Remarks Laboratory Tests Test 01/05/17 01/06/17 08:35 08:41 Red Blood Count 4.43 MIL/MM3 (4.50-5.90) Hemoglobin 9.9 GM/DL (13.0-17.0) Hematocrit 32.0 % (39.0-51.0) Mean Corpuscular Volume 72.1 FL (80.0-100.0) Mean Corpuscular Hemoglobin 22.3 PG (27.0-34.0) Mean Corpuscular Hemoglobin 30.9 % Concent (32.0-36.0) Red Cell Distribution Width 19.9 % (11.6-17.2) Sodium Level 134 MEQ/L 133 MEQ/L (136-145) (136-145) Random Glucose 136 MG/DL 132 MG/DL (74-106) (74-106) Creatinine 0.59 MG/DL (0.60-1.30) GENERAL: SKIN: Warm and dry. HEAD: Atraumatic. Normocephalic. EYES: Pupils equal and round. No scleral icterus. No injection or drainage. ENT: No nasal bleeding or discharge. Mucous membranes pink and moist. NECK: Trachea midline. No JVD. TRACH. [place] CARDIOVASCULAR: Regular rate and rhythm. RESPIRATORY: No accessory muscle use. Clear to auscultation. Breath sounds equal bilaterally. GASTROINTESTINAL: Abdomen soft, non-tender, nondistended. Hepatic and splenic margins not palpable. MUSCULOSKELETAL: Extremities without clubbing, cyanosis, or edema. No obvious deformities. NEUROLOGICAL: Awake and alert. No obvious cranial nerve deficits. Motor grossly within normal limits. Five out of 5 muscle strength in the arms and legs. Normal speech. PSYCHIATRIC: Appropriate mood and affect; insight and judgment normal. Assessment and Plan Assessment and Plan impression respiratory failure CVA S/P TRACHEOSTOMY SEPSIS PLAN O2 NEEDED PULM. TOILET ANTIBIOTICS PER ID F/U CXRAY [place] poor Brandon Taylor MD Jan 17, 2017 18:41
[2017-01-17] MEDS: PARoxetine HCL SUSP 20 MG/10 ML UDC PEG SCH (19:00)
[2017-01-18] VITALS (24 sets, daily range): BP systolic 106–147; BP diastolic 77–86; PULSE 97–107; RESP 22–32; TEMP 98.9–100.1; O2SAT 95–100
[2017-01-18] MEDS: INSULIN NovoLIN REGULAR SUPPLEMENTAL SCALE SQ SCH ×4 (04:00→20:07)
[2017-01-18] MEDS: CEFEPIME INJ 2,000 MG in SODIUM CHLORIDE 0.9% INJ 100 ML IV SCH ×3 (04:00→19:59)
[2017-01-18 06:24] LABS: AUTOMATED NEUTROPHIL # 3.3 TH/MM3 (1.8-7.7); EOSINOPHIL # 0.1 TH/MM3 (0-0.4); EOSINOPHIL % 2.8 % (0.0-4.0); HEMATOCRIT 30.2 % (39.0-51.0); HEMO FLAGS DIFF FINAL; LYMPH % 21.2 % (9.0-44.0); MEAN CELL VOLUME 71.6 FL (80.0-100.0); MEAN CORPUSCULAR HEMOGLOBIN 21.9 PG (27.0-34.0); MEAN CORPUSCULAR HGB CONC 30.6 % (32.0-36.0); MONO % 7.3 % (0.0-8.0); NEUT % 67.7 % (16.0-70.0); PLATELET COUNT 295 TH/MM3 (150-450); RED BLOOD COUNT 4.22 MIL/MM3 (4.50-5.90); RED CELL DISTRIBUTION WIDTH 20.3 % (11.6-17.2); REVIEW FLAG FINAL; WHITE BLOOD COUNT 4.9 TH/MM3 (4.0-11.0)
[2017-01-18] MEDS: MAGNESIUM HYDROXIDE SUSP 30 ML CUP PEG SCH (08:54)
[2017-01-18] MEDS: LACTULOSE SYRUP 20 GM/30 ML CUP PEG SCH (08:54)
[2017-01-18] MEDS: levETIRAcetam 500 MG/5 ML UDC TUBE SCH ×2 (08:54→19:59)
[2017-01-18] MEDS: PANTOPRAZOLE SODIUM 40 MG VIAL IV PUSH SCH ×2 (08:55→19:59)
[2017-01-18] MEDS: ASPIRIN 325 MG TAB TUBE SCH (08:55)
[2017-01-18] MEDS: DILTIAZEM HCL 30 MG TAB PEG SCH ×4 (08:55→19:59)
[2017-01-18] MEDS: ARTIFICIAL TEARS OPTH SOLN 15 ML BTL EACH EYE SCH ×2 (08:56→20:01)
[2017-01-18] MEDS: SODIUM CHLORIDE 0.65% NASAL SPRAY 45 ML BTL NASAL SCH ×2 (08:56→19:59)
[2017-01-18] MEDS: NYSTATIN 100,000 U/GM PWD 15 GM BTL TOPICAL SCH ×2 (08:57→20:01)
[2017-01-18] MEDS: BACITRACIN TOP OINT 15 GM TUBE TOP SCH ×2 (08:58→20:00)
--- NOTE | 2017-01-18 10:18 | HHI.CCPN ---
Subjective Remarks/Hospital Course 59year-old male with past medical history of paroxysmal atrial fibrillation, hypertension, stage IIIa non-Hodgkin's lymphoma (s/p chemotherapy with Rituxan, [facility] 2014) presented to [facility] emergency department on 12/20 with altered mental status. When he woke up of 4 o'clock, the patient had some right facial droop associated with headaches. CT scan of the brain showed no focal or acute intracranial hemorrhage. However, there is an new area of decreased density in the left occipital lobe, suggestive of recent non hemorrhagic infarction and a decreased density in the previously noted right occipital lobe which had increased in size. The patient was recently admitted on December 06 with similar presentation and he had a right occipital juan jose hole brain biopsy done by Dr. Marin on December 13. The pathology results showed acute infarction without evidence of lymphoma. On this admission, the patient became obtunded, had sonorous respirations and can would not follow any commands. He was subsequently intubated by the emergency department physician. MRI of the brain was obtained which showed a new area of restricted diffusion within the left occipital lobe suggesting acute infarction. EKG on arrival showed A-fib with RVR at rate of 114 beats per minute. Pertinent ICU Coarse: 12/21: No events overnight. Sedated with Diprivan and intubated. For MRA brain, carotids and MRV brain today . 12/22: Patient remains intubated, off sedation. 12/23: No events overnight. Remains off sedation. Withdraws to pain. 12/24: Remains intubated, on no sedation. For repeat MRI brain today 12/25: Tolerated PSV for 4-5 hour yesterday. 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 12/26: Tolerating PSV. Opens eyes to voice, reportedly has been blinking to command but isn't doing so currently even when family encouraging him. 12/27: Continues to tolerate PSV. Follows commands via ocular movements. Weak withdraw LUE noxious stimuli. 12/28: Tolerating PSV 04/24. Family desires trach - warfarin placed on hold. MRI today per neurology. 12/29: Tolerating tube feeds. INR 2.2. Sputum culture with pansensitive klebsiella. 12/30: No neuro change. Continues to tolerate PSV 12/31: General surgery and GI planning trach / PEG tomorrow. Has low grade temp 100.2. 01/01: On full vent support. No significant neurologic changes. s/p bedside Trach and PEG. 01/02: Resuming PSV trials. Restart tube feeds. 01/03; On continuous trach collar since yesterday evening. No significant secretions. 01/04 No events overnight. Patient has been on TP's x 2 days currently on 28% FIO2. T: 100.5 last night. 01/09 Reconsult: Halicat was called as patient was found hypoxic with sats 70%, tachycardic HR 140's patient was subsequently transferred to [facility] and placed back on ventilator. Trach changed to size #6 XLT. Patient was found to have fever with T 102.1. CXR this afternoon showed mild chronic parenchymal changes. He was noted to have some bloody secretions from trach last 2 days. 01/10 Patient Patient is sedated with Diprivan and on ventilator via trach. Had T :102.5 at midnight. CTA chest last night showed no PE, CT brain no acute findings. 01/11 Patient remains on ventilator via trach and on Fentanyl infusion for sedation. T:99.8 01/12 Patient has been on CPAP 10/5 with 35% FIO2 overnight. Afebrile, tolerating tube feeds. 01/13 Patient remains on CPAP overnight. Afebrile. 01/14 Patient tolerated TP's all day yesterday placed on CPAP PS 5/PEEP:5 with 35 % FIO2 overnight. Afebrile. 01/15: Tolerated TP several hours yesterday, CPAP at night. No acute events overnight 01/16: Remained on TPs last 24 hours. No acute events reported last night. Discussed with ID yesterday because of clinical improvement continuing cefepime 01/17: Afebrile. On T piece 60 hours. J-tube currently plugged. Will ask IR if they can intervene. Tolerating tube feeding otherwise. Positive BM. 01/18: Afebrile. On TPs 84 hours. G-tube was unplugged yesterday. Recommended tube feeding through G-tube only. Medications per G-tube. Neurologically unchanged Objective Vital Signs Date Time Temp Pulse Resp B/P Pulse Ox O2 Delivery O2 Flow Rate FiO2 01/18/17 08:29 100 01/18/17 08:00 99.6 26 134/83 01/18/17 06:00 99 01/17/17 20:26 T-piece 28 01/15/17 19:33 6.00 Intake and Output 01/17/17 01/17/17 01/18/17 08:00 16:00 00:00 Intake Total 458 ml 710 ml 632 ml Output Total 500 ml 1100 ml 900 ml Balance -42 ml -390 ml -268 ml Result Diagram: 01/18/17 0529 01/17/17 0508 Imaging Last Impressions Chest X-Ray 01/17/17 0600 Signed Impressions: Service Date/Time: Tuesday, January 17, 2017 03:27 - CONCLUSION: Bibasilar atelectasis. Smith Gusman MD Head CT 01/09/17 0000 Signed Impressions: Service Date/Time: December 17:43 - CONCLUSION: 1. No acute hemorrhage or mass effect. 2. 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 3. Atrophy. Gerald Mukherjee MD CT Angiography 01/09/17 0000 Signed Impressions: Service Date/Time: December 17:49 - CONCLUSION: 1. No evidence of pulmonary emboli. 2. Patchy consolidation in both posterior lower lobes right greater than left. This could represent pneumonia. 3. 2 small noncalcified pulmonary nodules which are nonspecific finding. Short-term CT followup is recommended beginning in 6 months with a noncontrast outpatient CT. Gerald Mukherjee MD Tube Change 12/31/16 0000 Signed Impressions: Service Date/Time: Saturday, December 31, 2016 16:35 - CONCLUSION: Uncomplicated gastrojejunostomy tube exchange as above. Moises Ramírez MD Tube Check 12/04/16 0000 Signed Impressions: Service Date/Time: Sunday, December 04, 2016 17:58 - CONCLUSION: Uncomplicated tube injection as above. the tube is in good position and functions normally. Moises Ramírez MD Abdomen X-Ray 08/31/16 0000 Signed Impressions: Service Date/Time: Wednesday, August 31, 2016 16:36 - CONCLUSION: 1. No acute findings. Mild constipation. Durga Dotson MD Abdomen/Pelvis CT 04/12/16 0000 Signed Impressions: Service Date/Time: Tuesday, April 12, 2016 20:52 - CONCLUSION: 1. 6.4 cm necrotic mass or abscess in the soft tissues posteriorly just below the sacrum associated with some bony destructive change of the lower most sacrum and coccyx with inflammatory changes extending into the ischiorectal fossa and into the presacral retroperitoneum predominantly on the left side. There is associated fairly marked mural thickening of the anal verge and rectum. 2. There is gastrostomy and Arevalo catheter present. Stable abdominal aortic aneurysm. Durga Dotson MD Head Magnetic Resonance Angiography 03/05/16 0000 Signed Impressions: Service Date/Time: Saturday, March 05, 2016 09:26 - CONCLUSION: Persistent high-grade subtotal occlusive stenotic lesions in the distal right vertebral artery and proximal basilar artery with significant improvement in flow and recanalization following initial presentation of thrombosis. Stable interstitial circulation without significant stenosis. 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 There is decreasing restricted diffusion and increasing loss of volume characteristic of a subacute to chronic infarct. No evidence of acute infarct, acute hemorrhage mass or edema. Ernesto Kulkarni MD Neck Magnetic Resonance Angiography 12/22/15 1445 Signed Impressions: Service Date/Time: Tuesday, December 22, 2015 09:22 - CONCLUSION: Variant origin of the left vertebral artery from the aortic arch. No evidence of carotid stenosis. Glen Zamora MD Head/Brain Mag Res Venography 12/22/15 0000 Signed Impressions: Service Date/Time: Tuesday, December 22, 2015 09:22 - CONCLUSION: Normal MRV. Jonel Jones Jr., MD Objective Remarks GENERAL: 61 yo male, currently resting in bed on TP via trach SKIN: Warm and dry. No rash. Noted decubitus ulcer coccyx HEAD: Normocephalic. EYES: No scleral icterus. No injection or drainage. NECK: Supple, trachea midline. No JVD or lymphadenopathy. CARDIOVASCULAR: Tachycardic, RR. S1, S2 no S4. Currently without murmurs, gallops, or rubs. RESPIRATORY: Breath sounds equal bilaterally and symmetrical no accessory muscle use. GASTROINTESTINAL: Abdomen soft, non-tender, nondistended. GJ tube is clean dry and intact. MUSCULOSKELETAL: No significant peripheral edema. Neuro: On no sedation. Eyes are open, do not track. Withdraws lower extremities to pain only Procedures 01/02/16 PEG placement 01/02/16 tracheostomy 07/22/2016 Wide excision of sacral skin wound, biopsy of the cavity lining and debridement. PEG tube replacement 07/29/16 VAC changes- M-W-F /- GJ tube replacement Date of Insertion: Jan 02, 2017 A/P Assessment and Plan Neuro/Psych: Initial hospitalization [place] and cerebellar CVA with Basilar artery thrombosis Status post brain biopsy on December 13: Path report - acute infarct, no evidence of lymphoma Depression Monitor neuro status, Off sedation. On Keppra 500mg BID - 750 twice a day home prior to arrival. 01/10: CT brain: No acute hemorrhage or mass effect. 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 Atrophy. MRI brain 02/2016: Evolving brainstem and bilateral occipital lobe infarcts with evidence of subacute hemorrhagic products. There is decreasing restricted diffusion and increasing loss of volume characteristic of a subacute to chronic infarct. No evidence of acute infarct, acute hemorrhage mass or edema. 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 On Ativan 0.5 mg every 4 hours when necessary anxiety. On acetaminophen with codeine for pain scale of 2-10. Pulm: Vent dependent respiratory failure Right upper lobe/right middle lobe pulmonary nodules - outpatient CT scan without contrast in 6 months to follow-up Continue with vent support keep sat >92%. Trach changed to size #6 XLT on 01/09 Duo nebs every 6 hours ICU vent bundle. SBT/TP trials as karlie. Leave on TP 10/02 as tolerated 01/09 CTA chest: No PE, bilateral lower lobe infiltrates. 4 mm right upper lobe /5 mm right middle lobe nodule.. CV: History of paroxysmal atrial fibrillation currently in sinus tachycardia Hypertension Dyslipidemia Monitor HR and BP keep MAP>65mmHg. O Continue ASA 325mg daily, Cardizem 30mg QID Previously on sotalol 40 mg a night for paroxysmal fibrillation. Holding Lipitor 40 mg by mouth daily for dyslipidemia. Holding Vasotec 20 mg by mouth daily for hypertension. Lactic acid 2.7 Renal//FEN: Monitor renal function, Accurate I/O's electrolytes replacement per protocol. GI: Mild protein calorie malnutrition Gastroesophageal reflux disease On Protonix 40mg Q12, on tube feeds( Glucerna 1.5 @ 45ml/hr) J-tube is currently plugged. Last INR state they can be cannulated ID: Klebsiella/Pseudomonas/staph aureus HCAP Klebsiella UTI Continue abx ( Cefepime) Monitor for signs of infections ( Fever, WBC) strep pneumonia and Legionella urinary Ag is negative C-diff PCR negative on 01/13 01/09 BC : Staph Epi, Urine cx: Pseudomonas, Sputum cx: Pseudomonas, kleb, Staph. (Pseudomonas in sputum is only intermediately sensitive to cefepime, clinically improving. Discussed with Kim on 01/15/17. Continue cefepime and less clinical change. This could be colonized sedation) 01/10: BC: NGTD Heme: Microcytic anemia Stage III a non-Hodgkin's lymphoma - s/p chemotherapy 2014 Monitor CBC No further treatment recommended per heme oncology at this time. Endo: History of diabetes mellitus On SSI (low scale) for glycemic control On metformin 500 daily at home. Derm Stage IV decubitus ulcers Dressing changes daily GI prophylaxis with Protonix 40mg Q12 DVT prophylaxis with SCD and Heparin SQ Level 2 Deandre Ritchie MD Jan 18, 2017 10:18
[2017-01-18] MEDS: HEPARIN SODIUM - SQ 10,000 UNITS/ML VIAL SQ SCH ×2 (14:00→15:31)
[2017-01-18] MEDS: ACETIC ACID 0.25% SOLN 1000 ML IRR BTL IRRIGATION SCH ×2 (14:00→20:01)
[2017-01-18] MEDS: SENNOSIDES SYRUP 8.8 MG/5 ML CUP PEG SCH (16:00)
[2017-01-18] MEDS: PARoxetine HCL SUSP 20 MG/10 ML UDC PEG SCH (18:26)
[2017-01-18] MEDS: ACETAMINOPHEN 650 MG/20.3 ML UDC TUBE PRN (21:34)
[2017-01-19] VITALS (17 sets, daily range): BP systolic 95–133; BP diastolic 61–77; PULSE 96–113; RESP 16–35; TEMP 98.2–100; O2SAT 94–99
[2017-01-19] MEDS: INSULIN NovoLIN REGULAR SUPPLEMENTAL SCALE SQ SCH ×4 (04:00→20:07)
[2017-01-19] MEDS: CEFEPIME INJ 2,000 MG in SODIUM CHLORIDE 0.9% INJ 100 ML IV SCH ×3 (05:40→19:54)
[2017-01-19] MEDS: HEPARIN SODIUM - SQ 10,000 UNITS/ML VIAL SQ SCH ×3 (05:41→19:56)
[2017-01-19] MEDS: ACETIC ACID 0.25% SOLN 1000 ML IRR BTL IRRIGATION SCH ×3 (05:42→19:56)
[2017-01-19] MEDS: MAGNESIUM HYDROXIDE SUSP 30 ML CUP PEG SCH (08:44)
[2017-01-19] MEDS: ASPIRIN 325 MG TAB TUBE SCH (08:45)
[2017-01-19] MEDS: DILTIAZEM HCL 30 MG TAB PEG SCH ×4 (08:45→19:56)
[2017-01-19] MEDS: LACTULOSE SYRUP 20 GM/30 ML CUP PEG SCH (08:45)
[2017-01-19] MEDS: levETIRAcetam 500 MG/5 ML UDC TUBE SCH ×2 (08:45→19:56)
[2017-01-19] MEDS: ARTIFICIAL TEARS OPTH SOLN 15 ML BTL EACH EYE SCH ×2 (08:46→19:55)
[2017-01-19] MEDS: SODIUM CHLORIDE 0.65% NASAL SPRAY 45 ML BTL NASAL SCH ×2 (08:46→19:55)
[2017-01-19] MEDS: NYSTATIN 100,000 U/GM PWD 15 GM BTL TOPICAL SCH ×2 (08:47→19:55)
[2017-01-19] MEDS: PANTOPRAZOLE SODIUM 40 MG VIAL IV PUSH SCH ×2 (08:47→19:55)
[2017-01-19] MEDS: BACITRACIN TOP OINT 15 GM TUBE TOP SCH ×2 (08:47→19:56)
--- NOTE | 2017-01-19 12:10 | HHI.CCPN ---
Subjective Remarks/Hospital Course 59year-old male with past medical history of paroxysmal atrial fibrillation, hypertension, stage IIIa non-Hodgkin's lymphoma (s/p chemotherapy with Rituxan, [facility] 2014) presented to [facility] emergency department on 12/20 with altered mental status. When he woke up of 4 o'clock, the patient had some right facial droop associated with headaches. CT scan of the brain showed no focal or acute intracranial hemorrhage. However, there is an new area of decreased density in the left occipital lobe, suggestive of recent non hemorrhagic infarction and a decreased density in the previously noted right occipital lobe which had increased in size. The patient was recently admitted on December 06 with similar presentation and he had a right occipital juan jose hole brain biopsy done by Dr. Marin on December 13. The pathology results showed acute infarction without evidence of lymphoma. On this admission, the patient became obtunded, had sonorous respirations and can would not follow any commands. He was subsequently intubated by the emergency department physician. MRI of the brain was obtained which showed a new area of restricted diffusion within the left occipital lobe suggesting acute infarction. EKG on arrival showed A-fib with RVR at rate of 114 beats per minute. Pertinent ICU Coarse: 12/21: No events overnight. Sedated with Diprivan and intubated. For MRA brain, carotids and MRV brain today . 12/22: Patient remains intubated, off sedation. 12/23: No events overnight. Remains off sedation. Withdraws to pain. 12/24: Remains intubated, on no sedation. For repeat MRI brain today 12/25: Tolerated PSV for 4-5 hour yesterday. 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 12/26: Tolerating PSV. Opens eyes to voice, reportedly has been blinking to command but isn't doing so currently even when family encouraging him. 12/27: Continues to tolerate PSV. Follows commands via ocular movements. Weak withdraw LUE noxious stimuli. 12/28: Tolerating PSV 04/24. Family desires trach - warfarin placed on hold. MRI today per neurology. 12/29: Tolerating tube feeds. INR 2.2. Sputum culture with pansensitive klebsiella. 12/30: No neuro change. Continues to tolerate PSV 12/31: General surgery and GI planning trach / PEG tomorrow. Has low grade temp 100.2. 01/01: On full vent support. No significant neurologic changes. s/p bedside Trach and PEG. 01/02: Resuming PSV trials. Restart tube feeds. 01/03; On continuous trach collar since yesterday evening. No significant secretions. 01/04 No events overnight. Patient has been on TP's x 2 days currently on 28% FIO2. T: 100.5 last night. 01/09 Reconsult: Halicat was called as patient was found hypoxic with sats 70%, tachycardic HR 140's patient was subsequently transferred to [facility] and placed back on ventilator. Trach changed to size #6 XLT. Patient was found to have fever with T 102.1. CXR this afternoon showed mild chronic parenchymal changes. He was noted to have some bloody secretions from trach last 2 days. 01/10 Patient Patient is sedated with Diprivan and on ventilator via trach. Had T :102.5 at midnight. CTA chest last night showed no PE, CT brain no acute findings. 01/11 Patient remains on ventilator via trach and on Fentanyl infusion for sedation. T:99.8 01/12 Patient has been on CPAP 10/5 with 35% FIO2 overnight. Afebrile, tolerating tube feeds. 01/13 Patient remains on CPAP overnight. Afebrile. 01/14 Patient tolerated TP's all day yesterday placed on CPAP PS 5/PEEP:5 with 35 % FIO2 overnight. Afebrile. 01/15: Tolerated TP several hours yesterday, CPAP at night. No acute events overnight 01/16: Remained on TPs last 24 hours. No acute events reported last night. Discussed with ID yesterday because of clinical improvement continuing cefepime 01/17: Afebrile. On T piece 60 hours. J-tube currently plugged. Will ask IR if they can intervene. Tolerating tube feeding otherwise. Positive BM. 01/18: Afebrile. On TPs 84 hours. J-tube was unplugged yesterday. Recommended tube feeding through G-tube only. Medications per G-tube. Neurologically unchanged 01/19 - low-grade fevers overnight currently 100. On TPs greater than 100 hours. Tolerating tube feeding. Neurologically unchanged. Objective Vital Signs Date Time Temp Pulse Resp B/P Pulse Ox O2 Delivery O2 Flow Rate FiO2 01/19/17 08:47 99 T-piece 35 01/19/17 06:00 113 01/19/17 04:00 100.0 29 124/70 01/15/17 19:33 6.00 Intake and Output 01/18/17 01/18/17 01/19/17 08:00 16:00 00:00 Intake Total 568 ml 848 ml 468 ml Output Total 700 ml 950 ml 400 ml Balance -132 ml -102 ml 68 ml Result Diagram: 01/18/17 0529 01/17/17 0508 Imaging Last Impressions Chest X-Ray 01/17/17 0600 Signed Impressions: Service Date/Time: Tuesday, January 17, 2017 03:27 - CONCLUSION: Bibasilar atelectasis. Smith Gusman MD Head CT 01/09/17 0000 Signed Impressions: Service Date/Time: December 17:43 - CONCLUSION: 1. No acute hemorrhage or mass effect. 2. 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 3. Atrophy. Gerald Mukherjee MD CT Angiography 01/09/17 0000 Signed Impressions: Service Date/Time: December 17:49 - CONCLUSION: 1. No evidence of pulmonary emboli. 2. Patchy consolidation in both posterior lower lobes right greater than left. This could represent pneumonia. 3. 2 small noncalcified pulmonary nodules which are nonspecific finding. Short-term CT followup is recommended beginning in 6 months with a noncontrast outpatient CT. Gerald Mukherjee MD Tube Change 12/31/16 0000 Signed Impressions: Service Date/Time: Saturday, December 31, 2016 16:35 - CONCLUSION: Uncomplicated gastrojejunostomy tube exchange as above. Moises Ramírez MD Tube Check 12/04/16 0000 Signed Impressions: Service Date/Time: Sunday, December 04, 2016 17:58 - CONCLUSION: Uncomplicated tube injection as above. the tube is in good position and functions normally. Moises Ramírez MD Abdomen X-Ray 08/31/16 0000 Signed Impressions: Service Date/Time: Wednesday, August 31, 2016 16:36 - CONCLUSION: 1. No acute findings. Mild constipation. Durga Dotson MD Abdomen/Pelvis CT 04/12/16 0000 Signed Impressions: Service Date/Time: Tuesday, April 12, 2016 20:52 - CONCLUSION: 1. 6.4 cm necrotic mass or abscess in the soft tissues posteriorly just below the sacrum associated with some bony destructive change of the lower most sacrum and coccyx with inflammatory changes extending into the ischiorectal fossa and into the presacral retroperitoneum predominantly on the left side. There is associated fairly marked mural thickening of the anal verge and rectum. 2. There is gastrostomy and Arevalo catheter present. Stable abdominal aortic aneurysm. Durga Dotson MD Head Magnetic Resonance Angiography 03/05/16 0000 Signed Impressions: Service Date/Time: Saturday, March 05, 2016 09:26 - CONCLUSION: Persistent high-grade subtotal occlusive stenotic lesions in the distal right vertebral artery and proximal basilar artery with significant improvement in flow and recanalization following initial presentation of thrombosis. Stable interstitial circulation without significant stenosis. 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 There is decreasing restricted diffusion and increasing loss of volume characteristic of a subacute to chronic infarct. No evidence of acute infarct, acute hemorrhage mass or edema. Ernesto Kulkarni MD Neck Magnetic Resonance Angiography 12/22/15 1445 Signed Impressions: Service Date/Time: Tuesday, December 22, 2015 09:22 - CONCLUSION: Variant origin of the left vertebral artery from the aortic arch. No evidence of carotid stenosis. Glen Zamora MD Head/Brain Mag Res Venography 12/22/15 0000 Signed Impressions: Service Date/Time: Tuesday, December 22, 2015 09:22 - CONCLUSION: Normal MRV. Jonel Jones Jr., MD Objective Remarks GENERAL: 61 yo male, currently resting in bed on TP via trach SKIN: Warm and dry. No rash. Noted decubitus ulcer coccyx HEAD: Normocephalic. EYES: No scleral icterus. No injection or drainage. NECK: Supple, trachea midline. No JVD or lymphadenopathy. CARDIOVASCULAR: Tachycardic, RR. S1, S2 no S4. Currently without murmurs, gallops, or rubs. RESPIRATORY: Breath sounds equal bilaterally and symmetrical no accessory muscle use. GASTROINTESTINAL: Abdomen soft, non-tender, nondistended. GJ tube is clean dry and intact. MUSCULOSKELETAL: No significant peripheral edema. Neuro: On no sedation. Eyes are open, do not track. Withdraws lower extremities to pain only Procedures 01/02/16 PEG placement 01/02/16 tracheostomy 07/22/2016 Wide excision of sacral skin wound, biopsy of the cavity lining and debridement. PEG tube replacement 07/29/16 VAC changes- M-W-F 10/23- GJ tube replacement Date of Insertion: Jan 02, 2017 A/P Assessment and Plan Neuro/Psych: Initial hospitalization [place] and cerebellar CVA with Basilar artery thrombosis Status post brain biopsy on December 13: Path report - acute infarct, no evidence of lymphoma Depression Monitor neuro status, Off sedation. On Keppra 500mg BID - 750 twice a day home prior to arrival. 01/10: CT brain: No acute hemorrhage or mass effect. 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 Atrophy. MRI brain 02/2016: Evolving brainstem and bilateral occipital lobe infarcts with evidence of subacute hemorrhagic products. There is decreasing restricted diffusion and increasing loss of volume characteristic of a subacute to chronic infarct. No evidence of acute infarct, acute hemorrhage mass or edema. 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 On Ativan 0.5 mg every 4 hours when necessary anxiety. On acetaminophen with codeine for pain scale of 2-10. Pulm: Vent dependent respiratory failure Right upper lobe/right middle lobe pulmonary nodules - outpatient CT scan without contrast in 6 months to follow-up Continue with vent support keep sat >92%. Trach changed to size #6 XLT on 01/09 Duo nebs every 6 hours ICU vent bundle. SBT/TP trials as karlie. Leave on TP 10/02 as tolerated 01/09 CTA chest: No PE, bilateral lower lobe infiltrates. 4 mm right upper lobe /5 mm right middle lobe nodule.. CV: History of paroxysmal atrial fibrillation currently in sinus tachycardia Hypertension Dyslipidemia Monitor HR and BP keep MAP>65mmHg. O Continue ASA 325mg daily, Cardizem 30mg QID Previously on sotalol 40 mg a night for paroxysmal fibrillation. Holding Lipitor 40 mg by mouth daily for dyslipidemia. Holding Vasotec 20 mg by mouth daily for hypertension. Lactic acid 2.7 Renal//FEN: Monitor renal function, Accurate I/O's electrolytes replacement per protocol. GI: Mild protein calorie malnutrition Gastroesophageal reflux disease On Protonix 40mg Q12, on tube feeds( Glucerna 1.5 @ 45ml/hr) J-tube is currently un plugged. On lactulose 30 cc daily for bowel regimen. Discontinue MOM in light of BMs. ID: Klebsiella/Pseudomonas/staph aureus HCAP Klebsiella UTI Continue abx ( Cefepime) Monitor for signs of infections ( Fever, WBC) strep pneumonia and Legionella urinary Ag is negative C-diff PCR negative on 01/13 01/09 BC : Staph Epi, Urine cx: Pseudomonas, Sputum cx: Pseudomonas, kleb, Staph. (Pseudomonas in sputum is only intermediately sensitive to cefepime, clinically improving. Discussed with Kim on 01/15/17. Continue cefepime and less clinical change. This could be colonized sedation) 01/10: BC: NGTD Will reculture today Heme: Microcytic anemia Stage III a non-Hodgkin's lymphoma - s/p chemotherapy 2014 Monitor CBC No further treatment recommended per heme oncology at this time. Endo: History of diabetes mellitus On SSI (low scale) for glycemic control On metformin 500 daily at home. Derm Stage IV decubitus ulcers Dressing changes daily GI prophylaxis with Protonix 40mg Q12 DVT prophylaxis with SCD and Heparin SQ Level 2 Deandre Ritchie MD Jan 19, 2017 12:10
[2017-01-19] MEDS: SENNOSIDES SYRUP 8.8 MG/5 ML CUP PEG SCH (16:00)
[2017-01-19 17:12] LABS: GLUCOSE,URINE NEG (NEG); KETONE, URINE TRACE mg/dL (NEG); PH, URINE 6.5 (5.0-8.5); URINE COLOR YELLOW (YELLW/STRAW)
[2017-01-19 17:13] LABS: BACTERIA, URINE RARE /hpf; BLOOD, URINE LARGE (NEG); NITRITE,URINE NEG (NEG); SQUAMOUS EPITHELIAL CELL URINE 0-5 /hpf (0-5)
[2017-01-19 17:14] LABS: COMMENT (UR) CULTURE INDICATED; CULTURE IF INDICATED CULTURE INDICATED
[2017-01-19] MEDS: PARoxetine HCL SUSP 20 MG/10 ML UDC PEG SCH (18:10)
[2017-01-19 21:12] LABS: MEAN CORPUSCULAR HGB CONC 29.9 % (32.0-36.0)
[2017-01-20] VITALS (34 sets, daily range): BP systolic 101–126; BP diastolic 63–79; PULSE 83–103; RESP 15–31; TEMP 97.8–99.4; O2SAT 93–100
[2017-01-20] MEDS: INSULIN NovoLIN REGULAR SUPPLEMENTAL SCALE SQ SCH ×4 (04:00→21:12)
[2017-01-20 05:04] LABS: AUTOMATED NEUTROPHIL # 4.6 TH/MM3 (1.8-7.7); BASOPHIL # 0.1 TH/MM3 (0-0.2); BASOPHIL % 1.3 % (0.0-2.0); EOSINOPHIL # 0.2 TH/MM3 (0-0.4); EOSINOPHIL % 2.6 % (0.0-4.0); HEMATOCRIT 29.7 % (39.0-51.0); HEMO FLAGS DIFF FINAL; LYMPH % 18.6 % (9.0-44.0); LYMPHOCYTE # 1.2 TH/MM3 (1.0-4.8); MEAN CELL VOLUME 73.2 FL (80.0-100.0); MEAN CORPUSCULAR HEMOGLOBIN 21.9 PG (27.0-34.0); MONO % 5.8 % (0.0-8.0); NEUT % 71.7 % (16.0-70.0); PLATELET COUNT 275 TH/MM3 (150-450); RED BLOOD COUNT 4.05 MIL/MM3 (4.50-5.90); RED CELL DISTRIBUTION WIDTH 21.1 % (11.6-17.2); WHITE BLOOD COUNT 6.4 TH/MM3 (4.0-11.0)
[2017-01-20] MEDS: ACETIC ACID 0.25% SOLN 1000 ML IRR BTL IRRIGATION SCH ×3 (05:06→22:00)
[2017-01-20] MEDS: CEFEPIME INJ 2,000 MG in SODIUM CHLORIDE 0.9% INJ 100 ML IV SCH ×2 (05:06→12:28)
[2017-01-20] MEDS: HEPARIN SODIUM - SQ 10,000 UNITS/ML VIAL SQ SCH ×3 (05:06→21:12)
[2017-01-20 05:32] LABS: ALT (GPT) 12 U/L (12-78); ANION GAP 8 MEQ/L (5-15); AST (GOT) 10 U/L (15-37); BICARBONATE 28.2 MEQ/L (21.0-32.0); BLOOD UREA NITROGEN 13 MG/DL (7-18); CHLORIDE 101 MEQ/L (98-107); GLOMERULAR FILTRATION RATE 125 ML/MIN (>89); MAGNESIUM 2.2 MG/DL (1.5-2.5); POTASSIUM 4.3 MEQ/L (3.5-5.1); SODIUM (NA) 137 MEQ/L (136-145)
[2017-01-20 05:34] LABS: ALKALINE PHOSPHATASE 62 U/L (45-117); TOTAL BILIRUBIN ADULT 0.3 MG/DL (0.2-1.0)
--- NOTE | 2017-01-20 05:41 | RADRPT ---
EXAM DATE/TIME: 01/20/2017 04:22 [facility] COMPARISON: CHEST SINGLE AP, January 17, 2017, 3:27. INDICATIONS : Shortness of breath, possible pulmonary disease. MEDICAL HISTORY : Lymphoma. Hypertension Diabetes mellitus type II. A-Fib SURGICAL HISTORY : None. ENCOUNTER: Subsequent ACUITY: 3 weeks PAIN SCORE: Non-responsive. LOCATION: Bilateral chest FINDINGS: A single view of the chest demonstrates patchy bibasilar densities. Heart normal in size. Tracheostom y tube unchanged. Osseous structures are intact. CONCLUSION: 1. Bibasilar patchy densities, unchanged. 2. Tracheostomy tube unchanged. Mikie Vargas MD on January 20, 2017 at 5:39 Board Certified Radiologist. This report was verified electronically.
[2017-01-20] MEDS: SODIUM PHOSPHATE INJ 30 MMOL in SODIUM CHLOR 0.9% 250 ML INJ 240 ML IV PRN (06:00)
--- NOTE | 2017-01-20 07:01 | HHI.CCPN ---
Subjective Remarks/Hospital Course 59year-old male with past medical history of paroxysmal atrial fibrillation, hypertension, stage IIIa non-Hodgkin's lymphoma (s/p chemotherapy with Rituxan, [facility] 2014) presented to [facility] emergency department on 12/20 with altered mental status. When he woke up of 4 o'clock, the patient had some right facial droop associated with headaches. CT scan of the brain showed no focal or acute intracranial hemorrhage. However, there is an new area of decreased density in the left occipital lobe, suggestive of recent non hemorrhagic infarction and a decreased density in the previously noted right occipital lobe which had increased in size. The patient was recently admitted on December 06 with similar presentation and he had a right occipital juan jose hole brain biopsy done by Dr. Marin on December 13. The pathology results showed acute infarction without evidence of lymphoma. On this admission, the patient became obtunded, had sonorous respirations and can would not follow any commands. He was subsequently intubated by the emergency department physician. MRI of the brain was obtained which showed a new area of restricted diffusion within the left occipital lobe suggesting acute infarction. EKG on arrival showed A-fib with RVR at rate of 114 beats per minute. Pertinent ICU Coarse: 12/21: No events overnight. Sedated with Diprivan and intubated. For MRA brain, carotids and MRV brain today . 12/22: Patient remains intubated, off sedation. 12/23: No events overnight. Remains off sedation. Withdraws to pain. 12/24: Remains intubated, on no sedation. For repeat MRI brain today 12/25: Tolerated PSV for 4-5 hour yesterday. 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 12/26: Tolerating PSV. Opens eyes to voice, reportedly has been blinking to command but isn't doing so currently even when family encouraging him. 12/27: Continues to tolerate PSV. Follows commands via ocular movements. Weak withdraw LUE noxious stimuli. 12/28: Tolerating PSV 04/24. Family desires trach - warfarin placed on hold. MRI today per neurology. 12/29: Tolerating tube feeds. INR 2.2. Sputum culture with pansensitive klebsiella. 12/30: No neuro change. Continues to tolerate PSV 12/31: General surgery and GI planning trach / PEG tomorrow. Has low grade temp 100.2. 01/01: On full vent support. No significant neurologic changes. s/p bedside Trach and PEG. 01/02: Resuming PSV trials. Restart tube feeds. 01/03; On continuous trach collar since yesterday evening. No significant secretions. 01/04 No events overnight. Patient has been on TP's x 2 days currently on 28% FIO2. T: 100.5 last night. 01/09 Reconsult: Halicat was called as patient was found hypoxic with sats 70%, tachycardic HR 140's patient was subsequently transferred to [facility] and placed back on ventilator. Trach changed to size #6 XLT. Patient was found to have fever with T 102.1. CXR this afternoon showed mild chronic parenchymal changes. He was noted to have some bloody secretions from trach last 2 days. 01/10 Patient Patient is sedated with Diprivan and on ventilator via trach. Had T :102.5 at midnight. CTA chest last night showed no PE, CT brain no acute findings. 01/11 Patient remains on ventilator via trach and on Fentanyl infusion for sedation. T:99.8 01/12 Patient has been on CPAP 10/5 with 35% FIO2 overnight. Afebrile, tolerating tube feeds. 01/13 Patient remains on CPAP overnight. Afebrile. 01/14 Patient tolerated TP's all day yesterday placed on CPAP PS 5/PEEP:5 with 35 % FIO2 overnight. Afebrile. 01/15: Tolerated TP several hours yesterday, CPAP at night. No acute events overnight 01/16: Remained on TPs last 24 hours. No acute events reported last night. Discussed with ID yesterday because of clinical improvement continuing cefepime 01/17: Afebrile. On T piece 60 hours. J-tube currently plugged. Will ask IR if they can intervene. Tolerating tube feeding otherwise. Positive BM. 01/18: Afebrile. On TPs 84 hours. J-tube was unplugged yesterday. Recommended tube feeding through G-tube only. Medications per G-tube. Neurologically unchanged 7/ - low-grade fevers overnight currently 100. On TPs greater than 100 hours. Tolerating tube feeding. Neurologically unchanged. 01/20 No events overbright. On TP's with 35-50% FIO2. Afebrile. Objective Vital Signs Date Time Temp Pulse Resp B/P Pulse Ox O2 Delivery O2 Flow Rate FiO2 01/20/17 06:00 97 01/20/17 04:00 99.4 30 125/79 98 01/19/17 20:10 T-piece 5.00 35 Intake and Output 01/19/17 01/19/17 01/20/17 08:00 16:00 00:00 Intake Total 519 ml 660 ml 647 ml Output Total 325 ml 775 ml 650 ml Balance 194 ml -115 ml -3 ml Result Diagram: 01/20/17 0342 01/20/17 0342 Other Results Laboratory Tests Test 01/19/17 01/20/17 14:40 03:42 Urine Color YELLOW Urine Turbidity CLEAR Urine pH 6.5 Urine Specific [place] 1.023 Urine Protein 100 mg/dL Urine Glucose (UA) NEG mg/dL Urine Ketones TRACE mg/dL Urine Occult Blood LARGE Urine Nitrite NEG Urine Bilirubin NEGATIVE Urine Urobilinogen 0.2 MG/DL Urine Leukocyte Esterase MOD Urine RBC 10-14 /hpf Urine WBC 9-14 /hpf Urine Squamous Epithelial 0-5 /hpf Cells Urine Bacteria RARE /hpf Microscopic Urinalysis Comment CULTURE INDICATED White Blood Count 6.4 TH/MM3 Red Blood Count 4.05 MIL/MM3 Hemoglobin 8.9 GM/DL Hematocrit 29.7 % Mean Corpuscular Volume 73.2 FL Mean Corpuscular Hemoglobin 21.9 PG Mean Corpuscular Hemoglobin 29.9 % Concent Red Cell Distribution Width 21.1 % Platelet Count 275 TH/MM3 Mean Platelet Volume 8.6 FL Neutrophils (%) (Auto) 71.7 % Lymphocytes (%) (Auto) 18.6 % Monocytes (%) (Auto) 5.8 % Eosinophils (%) (Auto) 2.6 % Basophils (%) (Auto) 1.3 % Neutrophils # (Auto) 4.6 TH/MM3 Lymphocytes # (Auto) 1.2 TH/MM3 Monocytes # (Auto) 0.4 TH/MM3 Eosinophils # (Auto) 0.2 TH/MM3 Basophils # (Auto) 0.1 TH/MM3 CBC Comment DIFF FINAL Differential Comment Sodium Level 137 MEQ/L Potassium Level 4.3 MEQ/L Chloride Level 101 MEQ/L Carbon Dioxide Level 28.2 MEQ/L Anion Gap 8 MEQ/L Blood Urea Nitrogen 13 MG/DL Creatinine 0.65 MG/DL Estimat Glomerular Filtration 125 ML/MIN Rate Random Glucose 127 MG/DL Calcium Level 8.9 MG/DL Phosphorus Level 2.4 MG/DL Magnesium Level 2.2 MG/DL Total Bilirubin 0.3 MG/DL Aspartate Amino Transf 10 U/L (AST/SGOT) Alanine Aminotransferase 12 U/L (ALT/SGPT) Alkaline Phosphatase 62 U/L Total Protein 9.2 GM/DL Albumin 2.6 GM/DL Imaging Last Impressions Chest X-Ray 01/20/17 0600 Signed Impressions: Service Date/Time: Friday, January 20, 2017 04:22 - CONCLUSION: 1. Bibasilar patchy densities, unchanged. 2. Tracheostomy tube unchanged. Mikie Vargas MD Head CT 01/09/17 0000 Signed Impressions: Service Date/Time: December 17:43 - CONCLUSION: 1. No acute hemorrhage or mass effect. 2. 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 3. Atrophy. Gerald Mukherjee MD CT Angiography 01/09/17 0000 Signed Impressions: Service Date/Time: December 17:49 - CONCLUSION: 1. No evidence of pulmonary emboli. 2. Patchy consolidation in both posterior lower lobes right greater than left. This could represent pneumonia. 3. 2 small noncalcified pulmonary nodules which are nonspecific finding. Short-term CT followup is recommended beginning in 6 months with a noncontrast outpatient CT. Gerald Mukherjee MD Tube Change 12/31/16 0000 Signed Impressions: Service Date/Time: Saturday, December 31, 2016 16:35 - CONCLUSION: Uncomplicated gastrojejunostomy tube exchange as above. Moises Ramírez MD Tube Check 12/04/16 0000 Signed Impressions: Service Date/Time: Sunday, December 04, 2016 17:58 - CONCLUSION: Uncomplicated tube injection as above. the tube is in good position and functions normally. Moises Ramírez MD Abdomen X-Ray 08/31/16 0000 Signed Impressions: Service Date/Time: Wednesday, August 31, 2016 16:36 - CONCLUSION: 1. No acute findings. Mild constipation. Durga Dotson MD Abdomen/Pelvis CT 04/12/16 0000 Signed Impressions: Service Date/Time: Tuesday, April 12, 2016 20:52 - CONCLUSION: 1. 6.4 cm necrotic mass or abscess in the soft tissues posteriorly just below the sacrum associated with some bony destructive change of the lower most sacrum and coccyx with inflammatory changes extending into the ischiorectal fossa and into the presacral retroperitoneum predominantly on the left side. There is associated fairly marked mural thickening of the anal verge and rectum. 2. There is gastrostomy and Arevalo catheter present. Stable abdominal aortic aneurysm. Durga Dotson MD Head Magnetic Resonance Angiography 03/05/16 0000 Signed Impressions: Service Date/Time: Saturday, March 05, 2016 09:26 - CONCLUSION: Persistent high-grade subtotal occlusive stenotic lesions in the distal right vertebral artery and proximal basilar artery with significant improvement in flow and recanalization following initial presentation of thrombosis. Stable interstitial circulation without significant stenosis. 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 There is decreasing restricted diffusion and increasing loss of volume characteristic of a subacute to chronic infarct. No evidence of acute infarct, acute hemorrhage mass or edema. Ernesto Kulkarni MD Neck Magnetic Resonance Angiography 12/22/15 1445 Signed Impressions: Service Date/Time: Tuesday, December 22, 2015 09:22 - CONCLUSION: Variant origin of the left vertebral artery from the aortic arch. No evidence of carotid stenosis. Glen Zamora MD Head/Brain Mag Res Venography 12/22/15 0000 Signed Impressions: Service Date/Time: Tuesday, December 22, 2015 09:22 - CONCLUSION: Normal MRV. Jonel Jones Jr., MD Objective Remarks GENERAL: 61 yo male, currently resting in bed on TP via trach SKIN: Warm and dry. No rash. Noted decubitus ulcer coccyx HEAD: Normocephalic. EYES: No scleral icterus. No injection or drainage. NECK: Supple, trachea midline. No JVD or lymphadenopathy. CARDIOVASCULAR: Tachycardic, RR. S1, S2 no S4. Currently without murmurs, gallops, or rubs. RESPIRATORY: Breath sounds equal bilaterally and symmetrical no accessory muscle use. GASTROINTESTINAL: Abdomen soft, non-tender, nondistended. GJ tube is clean dry and intact. MUSCULOSKELETAL: No significant peripheral edema. Neuro: On no sedation. Eyes are open, do not track. Withdraws lower extremities to pain only Procedures 01/02/16 PEG placement 01/02/16 tracheostomy 07/22/2016 Wide excision of sacral skin wound, biopsy of the cavity lining and debridement. PEG tube replacement 07/29/16 VAC changes- M-W-F 10/23- GJ tube replacement Date of Insertion: Jan 02, 2017 A/P Assessment and Plan Neuro/Psych: Initial hospitalization [place] and cerebellar CVA with Basilar artery thrombosis Status post brain biopsy on December 13: Path report - acute infarct, no evidence of lymphoma Depression Monitor neuro status, Off sedation. On Keppra 500mg BID - 750 twice a day home prior to arrival. 01/10: CT brain: No acute hemorrhage or mass effect. 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 Atrophy. MRI brain 02/2016: Evolving brainstem and bilateral occipital lobe infarcts with evidence of subacute hemorrhagic products. There is decreasing restricted diffusion and increasing loss of volume characteristic of a subacute to chronic infarct. No evidence of acute infarct, acute hemorrhage mass or edema. 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 On Ativan 0.5 mg every 4 hours when necessary anxiety. On acetaminophen with codeine for pain scale of 2-10. Pulm: Vent dependent respiratory failure Right upper lobe/right middle lobe pulmonary nodules - outpatient CT scan without contrast in 6 months to follow-up Continue with oxygen keep sat >92%. Trach changed to size #6 XLT on 01/09 Duo nebs every 6 hours SBT/TP trials as karlie. Leave on TP 10/02 as tolerated Pulm toilet, trach care 01/09 CTA chest: No PE, bilateral lower lobe infiltrates. 4 mm right upper lobe /5 mm right middle lobe nodule.. CXR ths morning unchanged. Pulm is following- Dr. Taylor CV: History of paroxysmal atrial fibrillation currently in sinus tachycardia Hypertension Dyslipidemia Monitor HR and BP keep MAP>65mmHg. O Continue ASA 325mg daily, Cardizem 30mg QID Previously on sotalol 40 mg a night for paroxysmal fibrillation. Renal//FEN: Monitor renal function, Accurate I/O's electrolytes replacement per protocol. GI: Mild protein calorie malnutrition Gastroesophageal reflux disease On Protonix 40mg Q12, on tube feeds( Glucerna 1.5 @ 45ml/hr) J-tube is currently unplugged. On lactulose 30 cc daily for bowel regimen. Discontinue MOM in light of BMs. ID: Klebsiella/Pseudomonas/staph aureus HCAP Klebsiella UTI Continue abx per ID( Cefepime) Monitor for signs of infections ( Fever, WBC) strep pneumonia and Legionella urinary Ag is negative C-diff PCR negative on 01/13 01/09 BC : Staph Epi, Urine cx: Pseudomonas, Sputum cx: Pseudomonas, kleb, Staph. (Pseudomonas in sputum is only intermediately sensitive to cefepime, clinically improving. Patient was pancultured on 01/19 ( Blood, sputum, urine) follow up on cxs Heme: Microcytic anemia Stage III a non-Hodgkin's lymphoma - s/p chemotherapy 2014 Monitor CBC No further treatment recommended per heme oncology at this time. Endo: History of diabetes mellitus On SSI (low scale) for glycemic control On metformin 500 daily at home. Derm Stage IV decubitus ulcers Dressing changes daily GI prophylaxis with Protonix 40mg Q12 DVT prophylaxis with SCD and Heparin SQ Will sign off and transfer acre to [facility] Level 3 Wil Langston MD Jan 20, 2017 07:00
[2017-01-20] MEDS: BACITRACIN TOP OINT 15 GM TUBE TOP SCH ×2 (09:00→21:00)
[2017-01-20] MEDS: levETIRAcetam 500 MG/5 ML UDC TUBE SCH ×2 (09:05→21:12)
[2017-01-20] MEDS: ASPIRIN 325 MG TAB TUBE SCH (09:05)
[2017-01-20] MEDS: PANTOPRAZOLE SODIUM 40 MG VIAL IV PUSH SCH ×2 (09:05→21:18)
[2017-01-20] MEDS: DILTIAZEM HCL 30 MG TAB PEG SCH ×5 (09:05→21:12)
[2017-01-20] MEDS: LACTULOSE SYRUP 20 GM/30 ML CUP PEG SCH (09:05)
[2017-01-20] MEDS: SODIUM CHLORIDE 0.65% NASAL SPRAY 45 ML BTL NASAL SCH ×2 (09:06→21:10)
[2017-01-20] MEDS: ARTIFICIAL TEARS OPTH SOLN 15 ML BTL EACH EYE SCH ×2 (09:06→21:10)
[2017-01-20] MEDS: NYSTATIN 100,000 U/GM PWD 15 GM BTL TOPICAL SCH ×2 (09:06→21:11)
[2017-01-20] MEDS: SENNOSIDES SYRUP 8.8 MG/5 ML CUP PEG SCH (12:28)
--- NOTE | 2017-01-20 14:24 | HHI.PR ---
Subjective Remarks ass transferred to ICU over night low BP , better with hydration cxray , no acute change now on T TUBE Objective Vital Signs Date Time Temp Pulse Resp B/P Pulse Ox O2 Delivery O2 Flow Rate FiO2 01/20/17 10:00 95 18 119/74 98 01/20/17 09:00 96 26 124/78 99 01/20/17 08:00 98.8 96 25 115/71 98 01/20/17 07:43 97 T-piece 6.00 35 01/20/17 06:00 97 01/20/17 06:00 103 01/20/17 04:00 103 01/20/17 04:00 99.4 103 30 125/79 98 01/20/17 02:00 101 01/20/17 00:00 100 01/20/17 00:00 99.2 100 25 108/76 96 01/19/17 22:00 102 01/19/17 20:10 98 T-piece 5.00 35 01/19/17 20:00 98.8 100 30 95/61 97 01/19/17 20:00 100 01/19/17 16:00 98.9 96 16 109/66 96 01/19/17 15:00 101 35 100/62 99 I/O 01/19/17 01/19/17 01/19/17 01/20/17 01/20/17 01/20/17 07:00 15:00 23:00 07:00 15:00 23:00 Intake Total 519 ml 660 ml 647 ml 606 ml Output Total 325 ml 775 ml 650 ml 500 ml Balance 194 ml -115 ml -3 ml 106 ml IV Total 100 ml 110 ml 147 ml 170 ml Tube Feeding 419 ml 450 ml 380 ml 376 ml Other 100 ml 120 ml 60 ml Output Urine Total 275 ml 275 ml 350 ml 300 ml Stool Total 50 ml 500 ml 300 ml 200 ml Result Diagram: 01/20/17 0342 01/20/17 0342 Procedures 01/02/16 PEG placement 01/02/16 tracheostomy 07/22/2016 Wide excision of sacral skin wound, biopsy of the cavity lining and debridement. PEG tube replacement 07/29/16 Objective Remarks Laboratory Tests Test 01/05/17 01/06/17 08:35 08:41 Red Blood Count 4.43 MIL/MM3 (4.50-5.90) Hemoglobin 9.9 GM/DL (13.0-17.0) Hematocrit 32.0 % (39.0-51.0) Mean Corpuscular Volume 72.1 FL (80.0-100.0) Mean Corpuscular Hemoglobin 22.3 PG (27.0-34.0) Mean Corpuscular Hemoglobin 30.9 % Concent (32.0-36.0) Red Cell Distribution Width 19.9 % (11.6-17.2) Sodium Level 134 MEQ/L 133 MEQ/L (136-145) (136-145) Random Glucose 136 MG/DL 132 MG/DL (74-106) (74-106) Creatinine 0.59 MG/DL (0.60-1.30) GENERAL: SKIN: Warm and dry. HEAD: Atraumatic. Normocephalic. EYES: Pupils equal and round. No scleral icterus. No injection or drainage. ENT: No nasal bleeding or discharge. Mucous membranes pink and moist. NECK: Trachea midline. No JVD. TRACH. [place] CARDIOVASCULAR: Regular rate and rhythm. RESPIRATORY: No accessory muscle use. Clear to auscultation. Breath sounds equal bilaterally. GASTROINTESTINAL: Abdomen soft, non-tender, nondistended. Hepatic and splenic margins not palpable. MUSCULOSKELETAL: Extremities without clubbing, cyanosis, or edema. No obvious deformities. NEUROLOGICAL: Awake and alert. No obvious cranial nerve deficits. Motor grossly within normal limits. Five out of 5 muscle strength in the arms and legs. Normal speech. PSYCHIATRIC: Appropriate mood and affect; insight and judgment normal. Assessment and Plan Assessment and Plan impression respiratory failure CVA S/P TRACHEOSTOMY SEPSIS PLAN O2 NEEDED PULM. TOILET ANTIBIOTICS PER ID F/U CXRAY Johnston Brandon Moy MD Jan 20, 2017 14:24
--- NOTE | 2017-01-20 16:53 | HHI.IDPN ---
Subjective Subjective Remarks clinically well, low grade fever over the week end On Tpiece Afebrile Large amount of stool buyt C.diff is negative toleartinfg tube feeds at goal Antibiotics cefepime flagyl Lines Peripheral IV Past Medical History Hypertension. Stage III non-Hodgkin's lymphoma. Diabetes mellitus. Paroxysmal atrial fibrillation. Brain biopsy in Nov, 2015. History of left arm surgery. 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 Vital Signs Date Time Temp Pulse Resp B/P Pulse Ox O2 Delivery O2 Flow Rate FiO2 01/20/17 10:00 95 18 119/74 98 01/20/17 09:00 96 26 124/78 99 01/20/17 08:00 98.8 96 25 115/71 98 01/20/17 07:43 97 T-piece 6.00 35 01/20/17 06:00 97 01/20/17 06:00 103 01/20/17 04:00 103 01/20/17 04:00 99.4 103 30 125/79 98 01/20/17 02:00 101 01/20/17 00:00 100 01/20/17 00:00 99.2 100 25 108/76 96 01/19/17 22:00 102 01/19/17 20:10 98 T-piece 5.00 35 01/19/17 20:00 98.8 100 30 95/61 97 01/19/17 20:00 100 01/19/17 01/19/17 01/20/17 15:00 23:00 07:00 Intake Total 660 ml 647 ml 606 ml Output Total 775 ml 650 ml 500 ml Balance -115 ml -3 ml 106 ml IV Total 110 ml 147 ml 170 ml Tube Feeding 450 ml 380 ml 376 ml Other 100 ml 120 ml 60 ml Output Urine Total 275 ml 350 ml 300 ml Stool Total 500 ml 300 ml 200 ml . Laboratory Tests Test 01/20/17 03:42 White Blood Count 6.4 TH/MM3 Red Blood Count 4.05 MIL/MM3 Hemoglobin 8.9 GM/DL Hematocrit 29.7 % Mean Corpuscular Volume 73.2 FL Mean Corpuscular Hemoglobin 21.9 PG Mean Corpuscular Hemoglobin 29.9 % Concent Red Cell Distribution Width 21.1 % Platelet Count 275 TH/MM3 Mean Platelet Volume 8.6 FL Neutrophils (%) (Auto) 71.7 % Lymphocytes (%) (Auto) 18.6 % Monocytes (%) (Auto) 5.8 % Eosinophils (%) (Auto) 2.6 % Basophils (%) (Auto) 1.3 % Neutrophils # (Auto) 4.6 TH/MM3 Lymphocytes # (Auto) 1.2 TH/MM3 Monocytes # (Auto) 0.4 TH/MM3 Eosinophils # (Auto) 0.2 TH/MM3 Basophils # (Auto) 0.1 TH/MM3 CBC Comment DIFF FINAL Differential Comment Laboratory Tests Test 01/20/17 03:42 Sodium Level 137 MEQ/L Potassium Level 4.3 MEQ/L Chloride Level 101 MEQ/L Carbon Dioxide Level 28.2 MEQ/L Anion Gap 8 MEQ/L Blood Urea Nitrogen 13 MG/DL Creatinine 0.65 MG/DL Estimat Glomerular Filtration 125 ML/MIN Rate Random Glucose 127 MG/DL Calcium Level 8.9 MG/DL Phosphorus Level 2.4 MG/DL Magnesium Level 2.2 MG/DL Total Bilirubin 0.3 MG/DL Aspartate Amino Transf 10 U/L (AST/SGOT) Alanine Aminotransferase 12 U/L (ALT/SGPT) Alkaline Phosphatase 62 U/L Total Protein 9.2 GM/DL Albumin 2.6 GM/DL Microbiology Date/Time Procedure Status Source Growth 01/19/17 14:40 Gram Stain - Final Resulted Sputum Endotracheal 01/19/17 14:40 Sputum Culture - Preliminary Resulted Pseudomonas Species 01/19/17 14:40 Urine Culture - Preliminary Resulted Urine Clean Catch No growth. 01/19/17 14:50 Aerobic Blood Culture - Preliminary Resulted Blood Peripheral NO GROWTH IN 1 DAY 01/19/17 14:50 Anaerobic Blood Culture - Preliminary Resulted Blood Peripheral NO GROWTH IN 1 DAY 01/19/17 15:10 Aerobic Blood Culture - Preliminary Resulted Blood Peripheral NO GROWTH IN 1 DAY 01/19/17 15:10 Anaerobic Blood Culture - Preliminary Resulted Blood Peripheral NO GROWTH IN 1 DAY Imaging Last Impressions Chest X-Ray 01/20/17 0600 Signed Impressions: Service Date/Time: Friday, January 20, 2017 04:22 - CONCLUSION: 1. Bibasilar patchy densities, unchanged. 2. Tracheostomy tube unchanged. Mikie Vargas MD Head CT 01/09/17 0000 Signed Impressions: Service Date/Time: December 17:43 - CONCLUSION: 1. No acute hemorrhage or mass effect. 2. 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 3. Atrophy. Gerald Mukherjee MD CT Angiography 01/09/17 0000 Signed Impressions: Service Date/Time: December 17:49 - CONCLUSION: 1. No evidence of pulmonary emboli. 2. Patchy consolidation in both posterior lower lobes right greater than left. This could represent pneumonia. 3. 2 small noncalcified pulmonary nodules which are nonspecific finding. Short-term CT followup is recommended beginning in 6 months with a noncontrast outpatient CT. Gerald Mukherjee MD Tube Change 12/31/16 0000 Signed Impressions: Service Date/Time: Saturday, December 31, 2016 16:35 - CONCLUSION: Uncomplicated gastrojejunostomy tube exchange as above. Moises Ramírez MD Tube Check 12/04/16 0000 Signed Impressions: Service Date/Time: Sunday, December 04, 2016 17:58 - CONCLUSION: Uncomplicated tube injection as above. the tube is in good position and functions normally. Moises Ramírez MD Abdomen X-Ray 08/31/16 0000 Signed Impressions: Service Date/Time: Wednesday, August 31, 2016 16:36 - CONCLUSION: 1. No acute findings. Mild constipation. Durga Dotson MD Abdomen/Pelvis CT 04/12/16 0000 Signed Impressions: Service Date/Time: Tuesday, April 12, 2016 20:52 - CONCLUSION: 1. 6.4 cm necrotic mass or abscess in the soft tissues posteriorly just below the sacrum associated with some bony destructive change of the lower most sacrum and coccyx with inflammatory changes extending into the ischiorectal fossa and into the presacral retroperitoneum predominantly on the left side. There is associated fairly marked mural thickening of the anal verge and rectum. 2. There is gastrostomy and Lopez catheter present. Stable abdominal aortic aneurysm. Durga Dotson MD Head Magnetic Resonance Angiography 03/05/16 0000 Signed Impressions: Service Date/Time: Saturday, March 05, 2016 09:26 - CONCLUSION: Persistent high-grade subtotal occlusive stenotic lesions in the distal right vertebral artery and proximal basilar artery with significant improvement in flow and recanalization following initial presentation of thrombosis. Stable interstitial circulation without significant stenosis. 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 There is decreasing restricted diffusion and increasing loss of volume characteristic of a subacute to chronic infarct. No evidence of acute infarct, acute hemorrhage mass or edema. Ernesto Kulkarni MD Neck Magnetic Resonance Angiography 12/22/15 1445 Signed Impressions: Service Date/Time: Tuesday, December 22, 2015 09:22 - CONCLUSION: Variant origin of the left vertebral artery from the aortic arch. No evidence of carotid stenosis. Glen Zamora MD Head/Brain Mag Res Venography 12/22/15 0000 Signed Impressions: Service Date/Time: Tuesday, December 22, 2015 09:22 - CONCLUSION: Normal MRV. Jonel Jones Jr., MD Physical Exam GENERAL: eyes opened , NAD SKIN: Warm to touch and dry. No generalized rash HEENT: [place] conjunctiva. . No scleral icterus. No injection or drainage. Mucous membranes pink and moist. NECK: Tracheostomy site looks okay. No secretions in the tubings noted CARDIOVASCULAR: Regular rate and rhythm. No murmur or rub. RESPIRATORY: clear to auscultation ABDOMEN: Soft, obese, non-tender, not distended. PEG site ok. BS (+) normoactive Rectal: dignishield in place with large amount of liquid brown stool EXTREMITIES: No clubbing, cyanosis. MIld pedal edema. Warm, and well perfused NEUROLOGICAL: resting , not following. 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
[2017-01-20] MEDS: PARoxetine HCL SUSP 20 MG/10 ML UDC PEG SCH (17:47)
[2017-01-20] MEDS: PIPERACIL-TAZO 4.5 GM PREMIX 100 ML IV SCH ×2 (17:47→21:17)
[2017-01-21] VITALS (46 sets, daily range): BP systolic 92–135; BP diastolic 58–80; PULSE 73–92; RESP 17–28; TEMP 97.7–98.3; O2SAT 88–100
[2017-01-21] MEDS: INSULIN NovoLIN REGULAR SUPPLEMENTAL SCALE SQ SCH ×4 (04:00→21:01)
[2017-01-21 04:12] LABS: AUTOMATED NEUTROPHIL # 3.5 TH/MM3 (1.8-7.7); BASOPHIL # 0.1 TH/MM3 (0-0.2); BASOPHIL % 1.1 % (0.0-2.0); EOSINOPHIL # 0.2 TH/MM3 (0-0.4); EOSINOPHIL % 3.6 % (0.0-4.0); HEMATOCRIT 27.1 % (39.0-51.0); HEMO FLAGS DIFF FINAL; LYMPH % 19.1 % (9.0-44.0); LYMPHOCYTE # 0.9 TH/MM3 (1.0-4.8); MEAN CELL VOLUME 72.1 FL (80.0-100.0); MEAN CORPUSCULAR HEMOGLOBIN 22.9 PG (27.0-34.0); MEAN CORPUSCULAR HGB CONC 31.8 % (32.0-36.0); MONO % 5.6 % (0.0-8.0); NEUT % 70.6 % (16.0-70.0); PLATELET COUNT 253 TH/MM3 (150-450); RED BLOOD COUNT 3.76 MIL/MM3 (4.50-5.90); RED CELL DISTRIBUTION WIDTH 21.1 % (11.6-17.2); WHITE BLOOD COUNT 4.9 TH/MM3 (4.0-11.0)
[2017-01-21] MEDS: PIPERACIL-TAZO 4.5 GM PREMIX 100 ML IV SCH ×4 (04:30→23:42)
[2017-01-21 04:39] LABS: BICARBONATE 28.5 MEQ/L (21.0-32.0); MAGNESIUM 1.9 MG/DL (1.5-2.5); POTASSIUM 3.8 MEQ/L (3.5-5.1)
[2017-01-21] MEDS: ACETIC ACID 0.25% SOLN 1000 ML IRR BTL IRRIGATION SCH ×3 (06:00→22:00)
[2017-01-21] MEDS: BACITRACIN TOP OINT 15 GM TUBE TOP SCH ×2 (09:00→20:45)
[2017-01-21] MEDS: LACTULOSE SYRUP 20 GM/30 ML CUP PEG SCH (09:00)
[2017-01-21] MEDS: SODIUM CHLORIDE 0.65% NASAL SPRAY 45 ML BTL NASAL SCH ×2 (09:35→20:44)
[2017-01-21] MEDS: ARTIFICIAL TEARS OPTH SOLN 15 ML BTL EACH EYE SCH ×2 (09:36→20:45)
[2017-01-21] MEDS: levETIRAcetam 500 MG/5 ML UDC TUBE SCH ×2 (09:37→20:44)
[2017-01-21] MEDS: HYOSCYAMINE 0.125 MG TAB G-TUBE PRN (09:38)
[2017-01-21] MEDS: PANTOPRAZOLE SODIUM 40 MG VIAL IV PUSH SCH ×2 (09:38→23:42)
[2017-01-21] MEDS: ASPIRIN 325 MG TAB TUBE SCH (09:38)
[2017-01-21] MEDS: DILTIAZEM HCL 30 MG TAB PEG SCH ×4 (09:38→20:45)
[2017-01-21] MEDS: HEPARIN SODIUM - SQ 10,000 UNITS/ML VIAL SQ SCH ×3 (14:00→20:44)
[2017-01-21] MEDS: SENNOSIDES SYRUP 8.8 MG/5 ML CUP PEG SCH (16:00)
[2017-01-21] MEDS: NYSTATIN 100,000 U/GM PWD 15 GM BTL TOPICAL SCH ×2 (16:39→20:44)
[2017-01-21] MEDS: LOPERAMIDE HCL SOLN 2 MG/10 ML UDC PEG PRN (17:58)
[2017-01-21] MEDS: PARoxetine HCL SUSP 20 MG/10 ML UDC PEG SCH (17:58)
--- NOTE | 2017-01-21 23:58 | HHI.PR ---
Subjective Remarks patient seen today around 2 PM. j-port blocked. Plan for IR to unblocked. Patient denies any pain. Objective Vital Signs Date Time Temp Pulse Resp B/P Pulse Ox O2 Delivery O2 Flow Rate FiO2 01/21/17 19:02 99 T-piece 5.00 35 01/21/17 18:30 76 22 100 01/21/17 18:08 80 23 100 01/21/17 17:59 81 21 113/72 99 01/21/17 17:30 73 18 100 01/21/17 17:00 82 17 101/78 99 01/21/17 16:00 88 27 92/62 93 01/21/17 15:30 92 19 100 01/21/17 15:00 80 23 101/66 99 01/21/17 14:30 79 18 100 01/21/17 14:00 84 20 110/64 98 01/21/17 13:00 80 24 123/75 100 01/21/17 12:00 98.3 81 22 101/64 97 01/21/17 11:01 83 21 92/58 95 01/21/17 11:00 83 20 93 01/21/17 10:00 91 21 122/77 99 01/21/17 09:11 98.1 01/21/17 09:00 92 23 111/79 99 01/21/17 08:07 97 T-piece 35 01/21/17 08:00 87 22 122/79 100 01/21/17 07:00 89 23 126/80 97 01/21/17 06:00 87 01/21/17 04:45 90 27 99 01/21/17 04:30 83 22 97 01/21/17 04:15 85 24 96 01/21/17 04:00 89 01/21/17 04:00 89 27 119/69 95 01/21/17 04:00 97.8 01/21/17 03:45 90 28 99 01/21/17 03:30 90 23 97 01/21/17 03:15 90 28 97 01/21/17 03:00 91 25 121/75 97 01/21/17 02:45 89 22 98 01/21/17 02:30 90 22 98 01/21/17 02:15 84 22 98 01/21/17 02:00 82 21 118/69 97 01/21/17 02:00 82 01/21/17 01:45 84 24 97 01/21/17 01:30 88 26 96 01/21/17 01:15 85 28 99 01/21/17 01:00 86 27 116/76 97 01/21/17 00:45 84 26 98 01/21/17 00:30 87 21 97 01/21/17 00:15 86 17 99 01/21/17 00:00 89 26 126/71 88 01/21/17 00:00 89 01/21/17 00:00 97.7 I/O 01/20/17 01/20/17 01/20/17 01/21/17 01/21/17 01/21/17 06:59 14:59 22:59 06:59 14:59 22:59 Intake Total 606 ml 1150 ml 632 ml 646 ml 599 ml Output Total 500 ml 325 ml 700 ml 800 ml 1000 ml Balance 106 ml 825 ml -68 ml -154 ml -401 ml IV Total 170 ml 475 ml 100 ml 170 ml 137 ml Tube Feeding 376 ml 475 ml 382 ml 376 ml 282 ml Other 60 ml 200 ml 150 ml 100 ml 180 ml Output Urine Total 300 ml 225 ml 400 ml 450 ml 600 ml Stool Total 200 ml 100 ml 300 ml 350 ml 400 ml Result Diagram: 01/21/17 0330 01/21/17 0330 Procedures 01/02/16 PEG placement 01/02/16 tracheostomy 07/22/2016 Wide excision of sacral skin wound, biopsy of the cavity lining and debridement. PEG tube replacement 07/29/16 Objective Remarks GENERAL: pt sitting up in bed. Appears comfortable. awake , alert. appears to answer no to family member in regards to whether he has pain. SKIN: Warm and dry. HEAD: Normocephalic. EYES: No scleral icterus. No injection or drainage. NECK: Supple, trachea midline. No JVD. CARDIOVASCULAR: Regular rate and rhythm without murmurs, gallops, or rubs. RESPIRATORY: Breath sounds equal bilaterally. No accessory muscle use. GASTROINTESTINAL: Abdomen soft, non-tender, nondistended. PEG tube with no surrounding erythema. MUSCULOSKELETAL: No cyanosis, or edema. BACK: Nontender without obvious deformity. No CVA tenderness. A/P Assessment and Plan =========01/21/17 Consult interventional radiology to unclog J-tube. Continue antibiotics as per infectious disease. 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 On Keppra 500mg BID - 750 twice a day home prior to arrival. 01/10: CT brain: No acute hemorrhage or mass effect. 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 Atrophy. MRI brain 02/2016: Evolving brainstem and bilateral occipital lobe infarcts with evidence of subacute hemorrhagic products. There is decreasing restricted diffusion and increasing loss of volume characteristic of a subacute to chronic infarct. No evidence of acute infarct, acute hemorrhage mass or edema. 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 On Ativan 0.5 mg every 4 hours when necessary anxiety. On acetaminophen with codeine for pain scale of 2-10. Pulm: //Vent dependent respiratory failure //Right upper lobe/right middle lobe pulmonary nodules - outpatient CT scan without contrast in 6 months to follow-up Continue with oxygen keep sat >92%. Trach changed to size #6 XLT on 01/09 Duo nebs every 6 hours SBT/TP trials as karlie. Leave on TP 10/02 as tolerated Pulm toilet, trach care 01/09 CTA chest: No PE, bilateral lower lobe infiltrates. 4 mm right upper lobe /5 mm right middle lobe nodule.. CXR ths morning unchanged. Pulm is following- Dr. Taylor CV: //History of paroxysmal atrial fibrillation currently in sinus tachycardia //Hypertension //Dyslipidemia Monitor HR and BP keep MAP>65mmHg. O Continue ASA 325mg daily, Cardizem 30mg QID Previously on sotalol 40 mg a night for paroxysmal fibrillation. Renal//FEN: Monitor renal function, Accurate I/O's electrolytes replacement per protocol. GI: //Mild protein calorie malnutrition //Gastroesophageal reflux disease On Protonix 40mg Q12, on tube feeds( Glucerna 1.5 @ 45ml/hr) J-tube is currently unplugged. On lactulose 30 cc daily for bowel regimen. Discontinue MOM in light of BMs. ID: //Klebsiella/Pseudomonas/staph aureus HCAP //Klebsiella UTI Continue abx per ID( Cefepime) Monitor for signs of infections ( Fever, WBC) strep pneumonia and Legionella urinary Ag is negative C-diff PCR negative on 01/13 01/09 BC : Staph Epi, Urine cx: Pseudomonas, Sputum cx: Pseudomonas, kleb, Staph. (Pseudomonas in sputum is only intermediately sensitive to cefepime, clinically improving. Patient was pancultured on 01/19 ( Blood, sputum, urine) follow up on cxs Heme: //Microcytic anemia //Stage III a non-Hodgkin's lymphoma - s/p chemotherapy 2014 Monitor CBC No further treatment recommended per heme oncology at this time. Endo: //History of diabetes mellitus On SSI (low scale) for glycemic control On metformin 500 daily at home. Derm //Stage IV decubitus ulcers -Dressing changes daily //GI prophylaxis with Protonix 40mg Q12 //DVT prophylaxis with SCD and Heparin SQ Discharge Planning appreciate case management assistance. Ramiro Rucker MD Jan 21, 2017 23:58
[2017-01-22] VITALS (9 sets, daily range): BP systolic 94–129; BP diastolic 61–81; PULSE 76–91; RESP 19–26; TEMP 98.1–98.5; O2SAT 98–100
[2017-01-22] MEDS: INSULIN NovoLIN REGULAR SUPPLEMENTAL SCALE SQ SCH ×4 (04:00→22:00)
[2017-01-22] MEDS: HEPARIN SODIUM - SQ 10,000 UNITS/ML VIAL SQ SCH ×3 (05:40→21:26)
[2017-01-22] MEDS: ACETIC ACID 0.25% SOLN 1000 ML IRR BTL IRRIGATION SCH ×4 (05:40→22:00)
[2017-01-22] MEDS: PIPERACIL-TAZO 4.5 GM PREMIX 100 ML IV SCH ×4 (05:40→22:36)
[2017-01-22] MEDS: ASPIRIN 325 MG TAB TUBE SCH (09:00)
[2017-01-22] MEDS: levETIRAcetam 500 MG/5 ML UDC TUBE SCH ×2 (09:00→21:26)
[2017-01-22] MEDS: LACTULOSE SYRUP 20 GM/30 ML CUP PEG SCH (09:00)
[2017-01-22] MEDS: BACITRACIN TOP OINT 15 GM TUBE TOP SCH ×2 (09:01→21:00)
[2017-01-22] MEDS: SODIUM CHLORIDE 0.65% NASAL SPRAY 45 ML BTL NASAL SCH ×2 (09:03→21:25)
[2017-01-22] MEDS: NYSTATIN 100,000 U/GM PWD 15 GM BTL TOPICAL SCH ×3 (09:03→21:26)
[2017-01-22] MEDS: ARTIFICIAL TEARS OPTH SOLN 15 ML BTL EACH EYE SCH ×2 (09:03→21:24)
[2017-01-22] MEDS: DILTIAZEM HCL 30 MG TAB PEG SCH ×4 (09:20→21:00)
[2017-01-22] MEDS: PANTOPRAZOLE SODIUM 40 MG VIAL IV PUSH SCH ×2 (11:04→21:29)
[2017-01-22] MEDS: SENNOSIDES SYRUP 8.8 MG/5 ML CUP PEG SCH (16:00)
--- NOTE | 2017-01-22 16:15 | HHI.PR ---
Subjective Remarks ass OPENS EYES NO DISTRESS SAT 100% PULSE 82 Objective Vital Signs Date Time Temp Pulse Resp B/P Pulse Ox O2 Delivery O2 Flow Rate FiO2 01/22/17 16:00 84 01/22/17 16:00 98.5 84 22 94/67 100 01/22/17 12:00 76 01/22/17 12:00 98.1 76 22 113/61 100 01/22/17 08:00 91 01/22/17 08:00 98.4 91 25 119/80 100 01/22/17 07:35 98 T-piece 35 01/22/17 06:00 85 01/22/17 06:00 85 19 129/81 100 01/22/17 05:00 85 01/22/17 05:00 85 26 123/79 98 01/22/17 04:00 84 01/22/17 04:00 98.5 84 25 115/76 98 01/22/17 00:00 98.1 81 26 124/80 100 01/22/17 00:00 81 01/21/17 23:00 83 01/21/17 23:00 83 17 135/80 100 01/21/17 22:00 81 01/21/17 22:00 81 19 114/73 100 01/21/17 21:00 84 23 128/79 98 01/21/17 21:00 84 01/21/17 20:00 84 01/21/17 20:00 97.9 84 27 108/67 92 01/21/17 19:02 99 T-piece 5.00 35 01/21/17 18:30 76 22 100 01/21/17 18:08 80 23 100 01/21/17 17:59 81 21 113/72 99 01/21/17 17:30 73 18 100 01/21/17 17:00 82 17 101/78 99 I/O 01/21/17 01/21/17 01/21/17 01/22/17 01/22/17 01/22/17 07:00 15:00 23:00 07:00 15:00 23:00 Intake Total 646 ml 599 ml 332 ml 352 ml 501 ml Output Total 800 ml 1000 ml 1050 ml 850 ml 1100 ml Balance -154 ml -401 ml -718 ml -498 ml -599 ml IV Total 170 ml 137 ml 149 ml 137 ml 170 ml Tube Feeding 376 ml 282 ml 183 ml 215 ml 271 ml Other 100 ml 180 ml 60 ml Output Urine Total 450 ml 600 ml 1000 ml 800 ml 750 ml Stool Total 350 ml 400 ml 50 ml 50 ml 350 ml Result Diagram: 01/21/17 0330 01/21/17 0330 Procedures 01/02/16 PEG placement 01/02/16 tracheostomy 07/22/2016 Wide excision of sacral skin wound, biopsy of the cavity lining and debridement. PEG tube replacement 07/29/16 Objective Remarks Laboratory Tests Test 01/05/17 01/06/17 08:35 08:41 Red Blood Count 4.43 MIL/MM3 (4.50-5.90) Hemoglobin 9.9 GM/DL (13.0-17.0) Hematocrit 32.0 % (39.0-51.0) Mean Corpuscular Volume 72.1 FL (80.0-100.0) Mean Corpuscular Hemoglobin 22.3 PG (27.0-34.0) Mean Corpuscular Hemoglobin 30.9 % Concent (32.0-36.0) Red Cell Distribution Width 19.9 % (11.6-17.2) Sodium Level 134 MEQ/L 133 MEQ/L (136-145) (136-145) Random Glucose 136 MG/DL 132 MG/DL (74-106) (74-106) Creatinine 0.59 MG/DL (0.60-1.30) GENERAL: SKIN: Warm and dry. HEAD: Atraumatic. Normocephalic. EYES: Pupils equal and round. No scleral icterus. No injection or drainage. ENT: No nasal bleeding or discharge. Mucous membranes pink and moist. NECK: Trachea midline. No JVD. TRACH. [place] CARDIOVASCULAR: Regular rate and rhythm. RESPIRATORY: No accessory muscle use. Clear to auscultation. Breath sounds equal bilaterally. GASTROINTESTINAL: Abdomen soft, non-tender, nondistended. Hepatic and splenic margins not palpable. MUSCULOSKELETAL: Extremities without clubbing, cyanosis, or edema. No obvious deformities. NEUROLOGICAL: Awake and alert. No obvious cranial nerve deficits. Motor grossly within normal limits. Five out of 5 muscle strength in the arms and legs. Normal speech. PSYCHIATRIC: Appropriate mood and affect; insight and judgment normal. Medications and IVs GENERAL: SKIN: Warm and dry. HEAD: Atraumatic. Normocephalic. EYES: Pupils equal and round. No scleral icterus. No injection or drainage. ENT: No nasal bleeding or discharge. Mucous membranes pink and moist. NECK: Trachea midline. No JVD. CARDIOVASCULAR: Regular rate and rhythm. RESPIRATORY: No accessory muscle use. Clear to auscultation. Breath sounds equal bilaterally. GASTROINTESTINAL: Abdomen soft, non-tender, nondistended. Hepatic and splenic margins not palpable. MUSCULOSKELETAL: Extremities without clubbing, cyanosis, or edema. No obvious deformities. NEUROLOGICAL: Awake and alert. No obvious cranial nerve deficits. Motor grossly within normal limits. Five out of 5 muscle strength in the arms and legs. Normal speech. PSYCHIATRIC: Appropriate mood and affect; insight and judgment normal. Assessment and Plan Assessment and Plan impression respiratory failure CVA S/P TRACHEOSTOMY SEPSIS PLAN O2 NEEDED PULM. TOILET ANTIBIOTICS PER ID [place] Brandon Moy MD Jan 22, 2017 16:15
[2017-01-22] MEDS: PARoxetine HCL SUSP 20 MG/10 ML UDC PEG SCH (18:24)
--- NOTE | 2017-01-22 23:53 | HHI.PR ---
Subjective Remarks patient seen this morning around 11 AM. Appears to deny pain. Discussed with family in room Objective Vital Signs Date Time Temp Pulse Resp B/P Pulse Ox O2 Delivery O2 Flow Rate FiO2 01/22/17 20:00 98.3 84 20 115/81 100 01/22/17 20:00 84 01/22/17 16:00 84 01/22/17 16:00 98.5 84 22 94/67 100 01/22/17 12:00 76 01/22/17 12:00 98.1 76 22 113/61 100 01/22/17 08:00 91 01/22/17 08:00 98.4 91 25 119/80 100 01/22/17 07:35 98 T-piece 35 01/22/17 06:00 85 01/22/17 06:00 85 19 129/81 100 01/22/17 05:00 85 01/22/17 05:00 85 26 123/79 98 01/22/17 04:00 84 01/22/17 04:00 98.5 84 25 115/76 98 01/22/17 00:00 98.1 81 26 124/80 100 01/22/17 00:00 81 I/O 01/21/17 01/21/17 01/21/17 01/22/17 01/22/17 01/22/17 06:59 14:59 22:59 06:59 14:59 22:59 Intake Total 646 ml 599 ml 332 ml 352 ml 501 ml 322 ml Output Total 800 ml 1000 ml 1050 ml 850 ml 1100 ml 775 ml Balance -154 ml -401 ml -718 ml -498 ml -599 ml -453 ml Intake Oral 0 ml IV Total 170 ml 137 ml 149 ml 137 ml 170 ml 100 ml Tube Feeding 376 ml 282 ml 183 ml 215 ml 271 ml 162 ml Other 100 ml 180 ml 60 ml 60 ml Output Urine Total 450 ml 600 ml 1000 ml 800 ml 750 ml 700 ml Stool Total 350 ml 400 ml 50 ml 50 ml 350 ml 75 ml Result Diagram: 01/21/17 0330 01/21/17 0330 Procedures 01/02/16 PEG placement 01/02/16 tracheostomy 07/22/2016 Wide excision of sacral skin wound, biopsy of the cavity lining and debridement. PEG tube replacement 07/29/16 Objective Remarks GENERAL: pt sitting up in bed. Appears comfortable. awake , alert. appears to answer no to family member in regards to whether he has pain. SKIN: Warm and dry. HEAD: Normocephalic. EYES: No scleral icterus. No injection or drainage. NECK: Supple, trachea midline. No JVD. CARDIOVASCULAR: Regular rate and rhythm without murmurs, gallops, or rubs. RESPIRATORY: Breath sounds equal bilaterally. No accessory muscle use. GASTROINTESTINAL: Abdomen soft, non-tender, nondistended. PEG tube with no surrounding erythema. MUSCULOSKELETAL: No cyanosis, or edema. examined sacral ulcer. No signs of infection. BACK: Nontender without obvious deformity. No CVA tenderness. A/P Assessment and Plan =========01/21/17 Consult interventional radiology to unclog J-tube. d/w nursing. Continue antibiotics as per infectious disease. 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 On Keppra 500mg BID - 750 twice a day home prior to arrival. 01/10: CT brain: No acute hemorrhage or mass effect. 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 Atrophy. MRI brain 02/2016: Evolving brainstem and bilateral occipital lobe infarcts with evidence of subacute hemorrhagic products. There is decreasing restricted diffusion and increasing loss of volume characteristic of a subacute to chronic infarct. No evidence of acute infarct, acute hemorrhage mass or edema. 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 On Ativan 0.5 mg every 4 hours when necessary anxiety. On acetaminophen with codeine for pain scale of 2-10. Pulm: //Vent dependent respiratory failure //Right upper lobe/right middle lobe pulmonary nodules - outpatient CT scan without contrast in 6 months to follow-up Continue with oxygen keep sat >92%. Trach changed to size #6 XLT on 01/09 Duo nebs every 6 hours SBT/TP trials as karlie. Leave on TP / as tolerated Pulm toilet, trach care 01/09 CTA chest: No PE, bilateral lower lobe infiltrates. 4 mm right upper lobe /5 mm right middle lobe nodule.. CXR ths morning unchanged. Pulm is following- Dr. Taylor CV: //History of paroxysmal atrial fibrillation currently in sinus tachycardia //Hypertension //Dyslipidemia Monitor HR and BP keep MAP>65mmHg. O Continue ASA 325mg daily, Cardizem 30mg QID Previously on sotalol 40 mg a night for paroxysmal fibrillation. Renal//FEN: Monitor renal function, Accurate I/O's electrolytes replacement per protocol. GI: //Mild protein calorie malnutrition //Gastroesophageal reflux disease On Protonix 40mg Q12, on tube feeds( Glucerna 1.5 @ 45ml/hr) J-tube is currently unplugged. On lactulose 30 cc daily for bowel regimen. Discontinue MOM in light of BMs. ID: //Klebsiella/Pseudomonas/staph aureus HCAP //Klebsiella UTI Continue abx per ID( Cefepime) Monitor for signs of infections ( Fever, WBC) strep pneumonia and Legionella urinary Ag is negative C-diff PCR negative on 01/13 01/09 BC : Staph Epi, Urine cx: Pseudomonas, Sputum cx: Pseudomonas, kleb, Staph. (Pseudomonas in sputum is only intermediately sensitive to cefepime, clinically improving. Patient was pancultured on 01/19 ( Blood, sputum, urine) follow up on cxs Heme: //Microcytic anemia //Stage III a non-Hodgkin's lymphoma - s/p chemotherapy 2014 Monitor CBC No further treatment recommended per heme oncology at this time. Endo: //History of diabetes mellitus On SSI (low scale) for glycemic control On metformin 500 daily at home. Derm //Stage IV decubitus ulcers -Dressing changes daily //GI prophylaxis with Protonix 40mg Q12 //DVT prophylaxis with SCD and Heparin SQ Discharge Planning appreciate case management assistance. Ramiro Rucker MD Jan 22, 2017 23:53
[2017-01-23] VITALS (10 sets, daily range): BP systolic 110–126; BP diastolic 65–77; PULSE 78–90; RESP 16–25; TEMP 97.9–99; O2SAT 92–100
[2017-01-23] MEDS: INSULIN NovoLIN REGULAR SUPPLEMENTAL SCALE SQ SCH ×4 (04:00→21:59)
[2017-01-23] MEDS: PIPERACIL-TAZO 4.5 GM PREMIX 100 ML IV SCH ×4 (05:47→21:57)
[2017-01-23] MEDS: HEPARIN SODIUM - SQ 10,000 UNITS/ML VIAL SQ SCH ×3 (05:48→21:59)
[2017-01-23] MEDS: ACETIC ACID 0.25% SOLN 1000 ML IRR BTL IRRIGATION SCH ×2 (06:00→22:12)
[2017-01-23] MEDS: SODIUM CHLORIDE 0.65% NASAL SPRAY 45 ML BTL NASAL SCH ×2 (08:19→19:58)
[2017-01-23] MEDS: LACTULOSE SYRUP 20 GM/30 ML CUP PEG SCH (08:20)
[2017-01-23] MEDS: ASPIRIN 325 MG TAB TUBE SCH (08:20)
[2017-01-23] MEDS: levETIRAcetam 500 MG/5 ML UDC TUBE SCH ×2 (08:20→20:14)
[2017-01-23] MEDS: DILTIAZEM HCL 30 MG TAB PEG SCH ×4 (08:20→22:11)
[2017-01-23] MEDS: ARTIFICIAL TEARS OPTH SOLN 15 ML BTL EACH EYE SCH ×2 (08:20→19:58)
[2017-01-23] MEDS: BACITRACIN TOP OINT 15 GM TUBE TOP SCH ×2 (08:21→19:59)
[2017-01-23] MEDS: NYSTATIN 100,000 U/GM PWD 15 GM BTL TOPICAL SCH (08:40)
--- NOTE | 2017-01-23 10:01 | HHI.PR ---
Addendum to Inpatient Note Additional Information Pt was seen and examined full note to follow Violetta Alvarez MD Jan 23, 2017 10:01
[2017-01-23] MEDS: PANTOPRAZOLE SODIUM 40 MG VIAL IV PUSH SCH ×2 (11:26→21:59)
--- NOTE | 2017-01-23 12:39 | HHI.IDPN ---
Subjective Subjective Remarks clinically well, nofever On Tpiece Afebrile Large amount of stool buyt C.diff is negative toleartinfg tube feeds at goal Antibiotics cefepime flagyl Lines Peripheral IV Past Medical History Hypertension. Stage III non-Hodgkin's lymphoma. Diabetes mellitus. Paroxysmal atrial fibrillation. Brain biopsy in Nov, 2015. History of left arm surgery. 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 Vital Signs Date Time Temp Pulse Resp B/P Pulse Ox O2 Delivery O2 Flow Rate FiO2 01/23/17 12:00 98.3 79 16 126/77 99 01/23/17 12:00 79 01/23/17 10:00 78 01/23/17 09:00 86 01/23/17 09:00 97.9 86 22 115/72 96 01/23/17 08:00 89 01/23/17 08:00 98.5 90 25 123/72 97 01/23/17 04:00 98.4 84 20 110/67 100 01/23/17 04:00 84 01/23/17 00:00 98.3 86 20 120/75 100 01/23/17 00:00 86 01/22/17 20:00 98.3 84 20 115/81 100 01/22/17 20:00 84 01/22/17 16:00 84 01/22/17 16:00 98.5 84 22 94/67 100 01/22/17 01/22/17 01/23/17 15:00 23:00 07:00 Intake Total 501 ml 322 ml 369 ml Output Total 1100 ml 775 ml 300 ml Balance -599 ml -453 ml 69 ml Intake Oral 0 ml 0 ml IV Total 170 ml 100 ml 142 ml Tube Feeding 271 ml 162 ml 167 ml Other 60 ml 60 ml 60 ml Output Urine Total 750 ml 700 ml 300 ml Stool Total 350 ml 75 ml 0 ml Imaging Last Impressions Chest X-Ray 01/20/17 0600 Signed Impressions: Service Date/Time: Friday, January 20, 2017 04:22 - CONCLUSION: 1. Bibasilar patchy densities, unchanged. 2. Tracheostomy tube unchanged. Mikie Vargas MD Head CT 6/22/17 0000 Signed Impressions: Service Date/Time: December 17:43 - CONCLUSION: 1. No acute hemorrhage or mass effect. 2. 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 3. Atrophy. Gerald Mukherjee MD CT Angiography 01/09/17 0000 Signed Impressions: Service Date/Time: December 17:49 - CONCLUSION: 1. No evidence of pulmonary emboli. 2. Patchy consolidation in both posterior lower lobes right greater than left. This could represent pneumonia. 3. 2 small noncalcified pulmonary nodules which are nonspecific finding. Short-term CT followup is recommended beginning in 6 months with a noncontrast outpatient CT. Gerald Mukherjee MD Tube Change 12/31/16 0000 Signed Impressions: Service Date/Time: Saturday, December 31, 2016 16:35 - CONCLUSION: Uncomplicated gastrojejunostomy tube exchange as above. Moises Ramírez MD Tube Check 12/04/16 0000 Signed Impressions: Service Date/Time: Sunday, December 04, 2016 17:58 - CONCLUSION: Uncomplicated tube injection as above. the tube is in good position and functions normally. Moises Ramírez MD Abdomen X-Ray 08/31/16 0000 Signed Impressions: Service Date/Time: Wednesday, August 31, 2016 16:36 - CONCLUSION: 1. No acute findings. Mild constipation. Durga Dotson MD Abdomen/Pelvis CT 04/12/16 0000 Signed Impressions: Service Date/Time: Tuesday, April 12, 2016 20:52 - CONCLUSION: 1. 6.4 cm necrotic mass or abscess in the soft tissues posteriorly just below the sacrum associated with some bony destructive change of the lower most sacrum and coccyx with inflammatory changes extending into the ischiorectal fossa and into the presacral retroperitoneum predominantly on the left side. There is associated fairly marked mural thickening of the anal verge and rectum. 2. There is gastrostomy and Lopez catheter present. Stable abdominal aortic aneurysm. Durga Dotson MD Head Magnetic Resonance Angiography 03/05/16 0000 Signed Impressions: Service Date/Time: Saturday, March 05, 2016 09:26 - CONCLUSION: Persistent high-grade subtotal occlusive stenotic lesions in the distal right vertebral artery and proximal basilar artery with significant improvement in flow and recanalization following initial presentation of thrombosis. Stable interstitial circulation without significant stenosis. 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 There is decreasing restricted diffusion and increasing loss of volume characteristic of a subacute to chronic infarct. No evidence of acute infarct, acute hemorrhage mass or edema. Ernesto Kulkarni MD Neck Magnetic Resonance Angiography 12/22/15 1445 Signed Impressions: Service Date/Time: Tuesday, December 22, 2015 09:22 - CONCLUSION: Variant origin of the left vertebral artery from the aortic arch. No evidence of carotid stenosis. Glen Zamora MD Head/Brain Mag Res Venography 12/22/15 0000 Signed Impressions: Service Date/Time: Tuesday, December 22, 2015 09:22 - CONCLUSION: Normal MRV. Jonel Jones Jr., MD Physical Exam GENERAL: eyes opened , NAD SKIN: Warm to touch and dry. No generalized rash Very clean stage IV decub with rough palpable bone. Its clean, n odor, o necrotic tissue. Upon removal of packing some clot and midl bleeding enconted. No e/o infx HEENT: [place] conjunctiva. . No scleral icterus. No injection or drainage. Mucous membranes pink and moist. NECK: Tracheostomy site looks okay. No secretions in the tubings noted CARDIOVASCULAR: Regular rate and rhythm. No murmur or rub. RESPIRATORY: clear to auscultation ABDOMEN: Soft, obese, non-tender, not distended. PEG site ok. BS (+) normoactive Rectal: dignishield in place with large amount of liquid brown stool EXTREMITIES: No clubbing, cyanosis. MIld pedal edema. Warm, and well perfused NEUROLOGICAL: resting , not following. 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
[2017-01-23] MEDS: SODIUM CHLOR 0.9% 1000 ML INJ 1,000 ML IV SCH (14:07)
--- NOTE | 2017-01-23 15:32 | HHI.PR ---
Subjective Remarks ass OPENS EYES NO DISTRESS SAT 100% PULSE 82 Objective Vital Signs Date Time Temp Pulse Resp B/P Pulse Ox O2 Delivery O2 Flow Rate FiO2 01/23/17 12:00 98.3 79 16 126/77 99 01/23/17 12:00 79 01/23/17 10:00 78 01/23/17 09:00 86 01/23/17 09:00 97.9 86 22 115/72 96 01/23/17 08:00 89 01/23/17 08:00 98.5 90 25 123/72 97 01/23/17 04:00 98.4 84 20 110/67 100 01/23/17 04:00 84 01/23/17 00:00 98.3 86 20 120/75 100 01/23/17 00:00 86 01/22/17 20:00 98.3 84 20 115/81 100 01/22/17 20:00 84 01/22/17 16:00 84 01/22/17 16:00 98.5 84 22 94/67 100 I/O 01/22/17 01/22/17 01/22/17 01/23/17 01/23/17 01/23/17 07:00 15:00 23:00 07:00 15:00 23:00 Intake Total 352 ml 501 ml 322 ml 369 ml 584 ml Output Total 850 ml 1100 ml 775 ml 300 ml 650 ml Balance -498 ml -599 ml -453 ml 69 ml -66 ml Intake Oral 0 ml 0 ml 0 ml IV Total 137 ml 170 ml 100 ml 142 ml 242 ml Tube Feeding 215 ml 271 ml 162 ml 167 ml 222 ml Other 60 ml 60 ml 60 ml 120 ml Output Urine Total 800 ml 750 ml 700 ml 300 ml 550 ml Stool Total 50 ml 350 ml 75 ml 0 ml 100 ml Result Diagram: 01/21/17 0330 01/21/17 0330 Procedures 01/02/16 PEG placement 01/02/16 tracheostomy 07/22/2016 Wide excision of sacral skin wound, biopsy of the cavity lining and debridement. PEG tube replacement 07/29/16 Objective Remarks Laboratory Tests Test 01/05/17 01/06/17 08:35 08:41 Red Blood Count 4.43 MIL/MM3 (4.50-5.90) Hemoglobin 9.9 GM/DL (13.0-17.0) Hematocrit 32.0 % (39.0-51.0) Mean Corpuscular Volume 72.1 FL (80.0-100.0) Mean Corpuscular Hemoglobin 22.3 PG (27.0-34.0) Mean Corpuscular Hemoglobin 30.9 % Concent (32.0-36.0) Red Cell Distribution Width 19.9 % (11.6-17.2) Sodium Level 134 MEQ/L 133 MEQ/L (136-145) (136-145) Random Glucose 136 MG/DL 132 MG/DL (74-106) (74-106) Creatinine 0.59 MG/DL (0.60-1.30) GENERAL: SKIN: Warm and dry. HEAD: Atraumatic. Normocephalic. EYES: Pupils equal and round. No scleral icterus. No injection or drainage. ENT: No nasal bleeding or discharge. Mucous membranes pink and moist. NECK: Trachea midline. No JVD. TRACH. [place] CARDIOVASCULAR: Regular rate and rhythm. RESPIRATORY: No accessory muscle use. Clear to auscultation. Breath sounds equal bilaterally. GASTROINTESTINAL: Abdomen soft, non-tender, nondistended. Hepatic and splenic margins not palpable. MUSCULOSKELETAL: Extremities without clubbing, cyanosis, or edema. No obvious deformities. NEUROLOGICAL: Awake and alert. No obvious cranial nerve deficits. Motor grossly within normal limits. Five out of 5 muscle strength in the arms and legs. Normal speech. PSYCHIATRIC: Appropriate mood and affect; insight and judgment normal. Assessment and Plan Assessment and Plan impression respiratory failure CVA S/P TRACHEOSTOMY SEPSIS PLAN O2 NEEDED PULM. TOILET ANTIBIOTICS PER ID Simpson Brandon Moy MD Jan 23, 2017 15:32
[2017-01-23] MEDS: SENNOSIDES SYRUP 8.8 MG/5 ML CUP PEG SCH (16:00)
[2017-01-23] MEDS: PARoxetine HCL SUSP 20 MG/10 ML UDC PEG SCH ×2 (18:22→18:43)
[2017-01-23 21:14] LABS: MEAN CORPUSCULAR HGB CONC 29.6 % (32.0-36.0)
--- NOTE | 2017-01-23 22:46 | HHI.PR ---
Subjective Remarks patient seen this morning around 11:30 AM. No acute issues. IR to unclog tube today. Objective Vital Signs Date Time Temp Pulse Resp B/P Pulse Ox O2 Delivery O2 Flow Rate FiO2 01/23/17 17:08 98 T-piece 28 01/23/17 16:00 86 01/23/17 16:00 98.2 86 23 116/74 98 01/23/17 12:00 98.3 79 16 126/77 99 01/23/17 12:00 79 01/23/17 10:00 78 01/23/17 09:00 86 01/23/17 09:00 97.9 86 22 115/72 96 01/23/17 08:00 89 01/23/17 08:00 98.5 90 25 123/72 97 01/23/17 04:00 98.4 84 20 110/67 100 01/23/17 04:00 84 01/23/17 00:00 98.3 86 20 120/75 100 01/23/17 00:00 86 I/O 01/22/17 01/22/17 01/22/17 01/23/17 01/23/17 01/23/17 07:00 15:00 23:00 07:00 15:00 23:00 Intake Total 352 ml 501 ml 322 ml 369 ml 584 ml Output Total 850 ml 1100 ml 775 ml 300 ml 650 ml Balance -498 ml -599 ml -453 ml 69 ml -66 ml Intake Oral 0 ml 0 ml 0 ml IV Total 137 ml 170 ml 100 ml 142 ml 242 ml Tube Feeding 215 ml 271 ml 162 ml 167 ml 222 ml Other 60 ml 60 ml 60 ml 120 ml Output Urine Total 800 ml 750 ml 700 ml 300 ml 550 ml Stool Total 50 ml 350 ml 75 ml 0 ml 100 ml Result Diagram: 01/21/17 0330 01/21/17 0330 Procedures 01/02/16 PEG placement 01/02/16 tracheostomy 07/22/2016 Wide excision of sacral skin wound, biopsy of the cavity lining and debridement. PEG tube replacement 07/29/16 Objective Remarks GENERAL: pt sitting up in bed. Appears comfortable. awake , alert. appears to answer no to family member in regards to whether he has pain, unchanged from yesterday.. SKIN: Warm and dry. HEAD: Normocephalic. EYES: No scleral icterus. No injection or drainage. NECK: Supple, trachea midline. No JVD. CARDIOVASCULAR: Regular rate and rhythm without murmurs, gallops, or rubs. RESPIRATORY: Breath sounds equal bilaterally. No accessory muscle use. GASTROINTESTINAL: Abdomen soft, non-tender, nondistended. PEG tube with no surrounding erythema. MUSCULOSKELETAL: No cyanosis, or edema. xamined sacral ulcer. No signs of infection. BACK: Nontender without obvious deformity. No CVA tenderness. A/P Assessment and Plan =========01/23/17 unclog J-tube. -Place on IV maintenance fluids until J-tube unclogged. Then can go back onprevious maintenance J-tube feedings. DW nursing again. 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 On Keppra 500mg BID - 750 twice a day home prior to arrival. 01/10: CT brain: No acute hemorrhage or mass effect. 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 Atrophy. MRI brain 02/2016: Evolving brainstem and bilateral occipital lobe infarcts with evidence of subacute hemorrhagic products. There is decreasing restricted diffusion and increasing loss of volume characteristic of a subacute to chronic infarct. No evidence of acute infarct, acute hemorrhage mass or edema. 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 On Ativan 0.5 mg every 4 hours when necessary anxiety. On acetaminophen with codeine for pain scale of 2-10. Pulm: //Vent dependent respiratory failure //Right upper lobe/right middle lobe pulmonary nodules - outpatient CT scan without contrast in 6 months to follow-up Continue with oxygen keep sat >92%. Trach changed to size #6 XLT on 01/09 Duo nebs every 6 hours SBT/TP trials as karlie. Leave on TP 10/02 as tolerated Pulm toilet, [facility] care 01/09 CTA chest: No PE, bilateral lower lobe infiltrates. 4 mm right upper lobe /5 mm right middle lobe nodule.. CXR ths morning unchanged. Pulm is following- Dr. Taylor CV: //History of paroxysmal atrial fibrillation currently in sinus tachycardia //Hypertension //Dyslipidemia Monitor HR and BP keep MAP>65mmHg. O Continue ASA 325mg daily, Cardizem 30mg QID Previously on sotalol 40 mg a night for paroxysmal fibrillation. Renal//FEN: Monitor renal function, Accurate I/O's electrolytes replacement per protocol. GI: //Mild protein calorie malnutrition //Gastroesophageal reflux disease On Protonix 40mg Q12, on tube feeds( Glucerna 1.5 @ 45ml/hr) J-tube is currently unplugged. On lactulose 30 cc daily for bowel regimen. Discontinue MOM in light of BMs. ID: //Klebsiella/Pseudomonas/staph aureus HCAP //Klebsiella UTI Continue abx per ID( Cefepime) Monitor for signs of infections ( Fever, WBC) strep pneumonia and Legionella urinary Ag is negative C-diff PCR negative on 01/13 01/09 BC : Staph Epi, Urine cx: Pseudomonas, Sputum cx: Pseudomonas, kleb, Staph. (Pseudomonas in sputum is only intermediately sensitive to cefepime, clinically improving. Patient was pancultured on 01/19 ( Blood, sputum, urine) follow up on cxs Heme: //Microcytic anemia //Stage III a non-Hodgkin's lymphoma - s/p chemotherapy 2014 Monitor CBC No further treatment recommended per heme oncology at this time. Endo: //History of diabetes mellitus On SSI (low scale) for glycemic control On metformin 500 daily at home. Derm //Stage IV decubitus ulcers -Dressing changes daily //GI prophylaxis with Protonix 40mg Q12 //DVT prophylaxis with SCD and Heparin SQ Discharge Planning appreciate case management assistance. Ramiro Rucker MD Jan 23, 2017 22:45
[2017-01-24] VITALS (16 sets, daily range): BP systolic 93–130; BP diastolic 64–75; PULSE 84–97; RESP 20–29; TEMP 97.4–98.9; O2SAT 93–100
[2017-01-24] MEDS: INSULIN NovoLIN REGULAR SUPPLEMENTAL SCALE SQ SCH ×4 (04:00→22:00)
[2017-01-24] MEDS: PIPERACIL-TAZO 4.5 GM PREMIX 100 ML IV SCH ×4 (05:23→23:28)
[2017-01-24] MEDS: HEPARIN SODIUM - SQ 10,000 UNITS/ML VIAL SQ SCH ×3 (05:24→20:06)
[2017-01-24] MEDS: ACETIC ACID 0.25% SOLN 1000 ML IRR BTL IRRIGATION SCH ×2 (05:24→15:53)
[2017-01-24 07:09] LABS: BICARBONATE 27.6 MEQ/L (21.0-32.0); MAGNESIUM 1.9 MG/DL (1.5-2.5); POTASSIUM 3.7 MEQ/L (3.5-5.1)
[2017-01-24 07:11] LABS: AUTOMATED NEUTROPHIL # 3.4 TH/MM3 (1.8-7.7); BASOPHIL # 0.1 TH/MM3 (0-0.2); BASOPHIL % 1.2 % (0.0-2.0); EOSINOPHIL # 0.2 TH/MM3 (0-0.4); EOSINOPHIL % 3.5 % (0.0-4.0); HEMATOCRIT 31.5 % (39.0-51.0); HEMO FLAGS DIFF FINAL; LYMPH % 20.3 % (9.0-44.0); MEAN CELL VOLUME 73.6 FL (80.0-100.0); MEAN CORPUSCULAR HEMOGLOBIN 21.7 PG (27.0-34.0); MONO % 7.7 % (0.0-8.0); NEUT % 67.3 % (16.0-70.0); PLATELET COUNT 239 TH/MM3 (150-450); RED BLOOD COUNT 4.28 MIL/MM3 (4.50-5.90); RED CELL DISTRIBUTION WIDTH 21.4 % (11.6-17.2); WHITE BLOOD COUNT 5.1 TH/MM3 (4.0-11.0)
[2017-01-24] MEDS: ARTIFICIAL TEARS OPTH SOLN 15 ML BTL EACH EYE SCH ×2 (08:50→20:07)
[2017-01-24] MEDS: ASPIRIN 325 MG TAB TUBE SCH (08:50)
[2017-01-24] MEDS: levETIRAcetam 500 MG/5 ML UDC TUBE SCH ×2 (08:51→20:07)
[2017-01-24] MEDS: SODIUM CHLORIDE 0.65% NASAL SPRAY 45 ML BTL NASAL SCH ×2 (08:51→20:07)
[2017-01-24] MEDS: DILTIAZEM HCL 30 MG TAB PEG SCH ×4 (08:51→20:07)
[2017-01-24] MEDS: LACTULOSE SYRUP 20 GM/30 ML CUP PEG SCH (08:51)
[2017-01-24] MEDS: NYSTATIN 100,000 U/GM PWD 15 GM BTL TOPICAL SCH ×2 (08:52→20:08)
[2017-01-24] MEDS: BACITRACIN TOP OINT 15 GM TUBE TOP SCH ×2 (08:52→20:08)
[2017-01-24] MEDS: PANTOPRAZOLE SODIUM 40 MG VIAL IV PUSH SCH ×2 (10:15→20:07)
[2017-01-24] MEDS: SODIUM CHLOR 0.9% 1000 ML INJ 1,000 ML IV SCH (12:04)
--- NOTE | 2017-01-24 14:54 | HHI.PR ---
Subjective Remarks ass OPENS EYES NO DISTRESS SAT 100% PULSE 82 Objective Vital Signs Date Time Temp Pulse Resp B/P Pulse Ox O2 Delivery O2 Flow Rate FiO2 01/24/17 12:00 97.5 94 27 115/69 96 01/24/17 12:00 94 01/24/17 10:00 91 01/24/17 10:00 91 24 111/69 97 01/24/17 09:00 97 01/24/17 09:00 97 29 116/73 94 01/24/17 08:00 95 01/24/17 08:00 98.4 95 27 116/74 96 01/24/17 07:20 93 T-piece 5.00 28 01/24/17 07:00 92 28 107/70 94 01/24/17 07:00 96 01/24/17 06:00 90 01/24/17 06:00 90 26 125/73 99 01/24/17 05:00 87 01/24/17 05:00 87 23 114/73 97 01/24/17 04:00 98.7 87 24 130/75 99 01/24/17 04:00 84 01/24/17 00:00 87 01/24/17 00:00 98.9 87 24 130/75 99 01/23/17 20:00 81 01/23/17 20:00 99.0 81 20 120/65 92 01/23/17 19:25 100 T-piece 01/23/17 17:08 98 T-piece 28 01/23/17 16:00 86 01/23/17 16:00 98.2 86 23 116/74 98 I/O 01/23/17 01/23/17 01/23/17 01/24/17 01/24/17 01/24/17 07:00 15:00 23:00 07:00 15:00 23:00 Intake Total 369 ml 584 ml 896 ml 444 ml Output Total 300 ml 650 ml 900 ml 500 ml Balance 69 ml -66 ml -4 ml -56 ml Intake Oral 0 ml 0 ml IV Total 142 ml 242 ml 503 ml 251 ml Tube Feeding 167 ml 222 ml 193 ml 193 ml Other 60 ml 120 ml 200 ml Output Urine Total 300 ml 550 ml 900 ml 500 ml Stool Total 0 ml 100 ml Result Diagram: 01/24/17 0607 01/24/17 0607 Procedures 01/02/16 PEG placement 01/02/16 tracheostomy 07/22/2016 Wide excision of sacral skin wound, biopsy of the cavity lining and debridement. PEG tube replacement 07/29/16 Objective Remarks Laboratory Tests Test 01/05/17 01/06/17 08:35 08:41 Red Blood Count 4.43 MIL/MM3 (4.50-5.90) Hemoglobin 9.9 GM/DL (13.0-17.0) Hematocrit 32.0 % (39.0-51.0) Mean Corpuscular Volume 72.1 FL (80.0-100.0) Mean Corpuscular Hemoglobin 22.3 PG (27.0-34.0) Mean Corpuscular Hemoglobin 30.9 % Concent (32.0-36.0) Red Cell Distribution Width 19.9 % (11.6-17.2) Sodium Level 134 MEQ/L 133 MEQ/L (136-145) (136-145) Random Glucose 136 MG/DL 132 MG/DL (74-106) (74-106) Creatinine 0.59 MG/DL (0.60-1.30) GENERAL: SKIN: Warm and dry. HEAD: Atraumatic. Normocephalic. EYES: Pupils equal and round. No scleral icterus. No injection or drainage. ENT: No nasal bleeding or discharge. Mucous membranes pink and moist. NECK: Trachea midline. No JVD. TRACH. [place] CARDIOVASCULAR: Regular rate and rhythm. RESPIRATORY: No accessory muscle use. Clear to auscultation. Breath sounds equal bilaterally. GASTROINTESTINAL: Abdomen soft, non-tender, nondistended. Hepatic and splenic margins not palpable. MUSCULOSKELETAL: Extremities without clubbing, cyanosis, or edema. No obvious deformities. NEUROLOGICAL: Awake and alert. No obvious cranial nerve deficits. Motor grossly within normal limits. Five out of 5 muscle strength in the arms and legs. Normal speech. PSYCHIATRIC: Appropriate mood and affect; insight and judgment normal. Assessment and Plan Assessment and Plan impression respiratory failure CVA S/P TRACHEOSTOMY SEPSIS PLAN O2 NEEDED PULM. TOILET ANTIBIOTICS PER ID [place] poor Discharge Planning GENERAL: SKIN: Warm and dry. HEAD: Atraumatic. Normocephalic. EYES: Pupils equal and round. No scleral icterus. No injection or drainage. ENT: No nasal bleeding or discharge. Mucous membranes pink and moist. NECK: Trachea midline. No JVD. CARDIOVASCULAR: Regular rate and rhythm. RESPIRATORY: No accessory muscle use. Clear to auscultation. Breath sounds equal bilaterally. GASTROINTESTINAL: Abdomen soft, non-tender, nondistended. Hepatic and splenic margins not palpable. MUSCULOSKELETAL: Extremities without clubbing, cyanosis, or edema. No obvious deformities. NEUROLOGICAL: Awake and alert. No obvious cranial nerve deficits. Motor grossly within normal limits. Five out of 5 muscle strength in the arms and legs. Normal speech. PSYCHIATRIC: Appropriate mood and affect; insight and judgment normal. Brandon Taylor MD Jan 24, 2017 14:54
[2017-01-24] MEDS: SENNOSIDES SYRUP 8.8 MG/5 ML CUP PEG SCH (15:53)
--- NOTE | 2017-01-24 18:08 | HHI.PR ---
Subjective Remarks patient seentoday around noon. No acute changes per nursing or family. Patient appears to deny pain. Discussed with nursing. Patient to go down for J-tube revision Objective Vital Signs Date Time Temp Pulse Resp B/P Pulse Ox O2 Delivery O2 Flow Rate FiO2 01/24/17 16:00 97.4 90 27 120/71 100 01/24/17 16:00 90 01/24/17 15:00 89 01/24/17 15:00 89 20 93/66 99 01/24/17 14:00 87 25 95/66 100 01/24/17 14:00 87 01/24/17 13:00 86 01/24/17 13:00 86 24 106/64 98 01/24/17 12:00 97.5 94 27 115/69 96 01/24/17 12:00 94 01/24/17 10:00 91 01/24/17 10:00 91 24 111/69 97 01/24/17 09:00 97 01/24/17 09:00 97 29 116/73 94 01/24/17 08:00 95 01/24/17 08:00 98.4 95 27 116/74 96 01/24/17 07:20 93 T-piece 5.00 28 01/24/17 07:00 92 28 107/70 94 01/24/17 07:00 96 01/24/17 06:00 90 01/24/17 06:00 90 26 125/73 99 01/24/17 05:00 87 01/24/17 05:00 87 23 114/73 97 01/24/17 04:00 98.7 87 24 130/75 99 01/24/17 04:00 84 01/24/17 00:00 87 01/24/17 00:00 98.9 87 24 130/75 99 01/23/17 20:00 81 01/23/17 20:00 99.0 81 20 120/65 92 01/23/17 19:25 100 T-piece 28 I/O 01/23/17 01/23/17 01/23/17 01/24/17 01/24/17 01/24/17 07:00 15:00 23:00 07:00 15:00 23:00 Intake Total 369 ml 584 ml 896 ml 444 ml 747 ml Output Total 300 ml 650 ml 900 ml 500 ml 450 ml Balance 69 ml -66 ml -4 ml -56 ml 297 ml Intake Oral 0 ml 0 ml IV Total 142 ml 242 ml 503 ml 251 ml 590 ml Tube Feeding 167 ml 222 ml 193 ml 193 ml 157 ml Other 60 ml 120 ml 200 ml Output Urine Total 300 ml 550 ml 900 ml 500 ml 250 ml Stool Total 0 ml 100 ml 200 ml Result Diagram: 01/24/17 0607 01/24/17 0607 Procedures 01/02/16 PEG placement 01/02/16 tracheostomy 07/22/2016 Wide excision of sacral skin wound, biopsy of the cavity lining and debridement. PEG tube replacement 07/29/16 Objective Remarks GENERAL: pt sitting up in bed. Appears comfortable. awake , alert. again, appears to answer no to family member in regards to whether he has pain, unchanged from yesterday.. SKIN: Warm and dry. HEAD: Normocephalic. EYES: No scleral icterus. No injection or drainage. NECK: Supple, trachea midline. No JVD. CARDIOVASCULAR: Regular rate and rhythm without murmurs, gallops, or rubs. RESPIRATORY: Breath sounds equal bilaterally. No accessory muscle use. GASTROINTESTINAL: Abdomen soft, non-tender, nondistended. PEG tube with no surrounding erythema. MUSCULOSKELETAL: No cyanosis, or edema. xamined sacral ulcer. No signs of infection. BACK: Nontender without obvious deformity. No CVA tenderness. A/P Assessment and Plan =========01/24/17 patient going down to IR for J-tube revision. -continue on IV maintenance fluids until J-tube unclogged. -labs reviewed and unremarkable. 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 On Keppra 500mg BID - 750 twice a day home prior to arrival. 01/10: CT brain: No acute hemorrhage or mass effect. 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 Atrophy. MRI brain 02/2016: Evolving brainstem and bilateral occipital lobe infarcts with evidence of subacute hemorrhagic products. There is decreasing restricted diffusion and increasing loss of volume characteristic of a subacute to chronic infarct. No evidence of acute infarct, acute hemorrhage mass or edema. 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 On Ativan 0.5 mg every 4 hours when necessary anxiety. On acetaminophen with codeine for pain scale of 2-10. Pulm: //Vent dependent respiratory failure //Right upper lobe/right middle lobe pulmonary nodules - outpatient CT scan without contrast in 6 months to follow-up Continue with oxygen keep sat >92%. Trach changed to size #6 XLT on 01/09 Duo nebs every 6 hours SBT/TP trials as karlie. Leave on TP 10/02 as tolerated Pulm toilet, trach care 01/09 CTA chest: No PE, bilateral lower lobe infiltrates. 4 mm right upper lobe /5 mm right middle lobe nodule.. CXR th morning unchanged. Pulm is following- Dr. Taylor CV: //History of paroxysmal atrial fibrillation currently in sinus tachycardia //Hypertension //Dyslipidemia Monitor HR and BP keep MAP>65mmHg. O Continue ASA 325mg daily, Cardizem 30mg QID Previously on sotalol 40 mg a night for paroxysmal fibrillation. Renal//FEN: Monitor renal function, Accurate I/O's electrolytes replacement per protocol. GI: //Mild protein calorie malnutrition //Gastroesophageal reflux disease On Protonix 40mg Q12, on tube feeds( Glucerna 1.5 @ 45ml/hr) J-tube is currently unplugged. On lactulose 30 cc daily for bowel regimen. Discontinue MOM in light of BMs. ID: //Klebsiella/Pseudomonas/staph aureus HCAP //Klebsiella UTI Continue abx per ID( Cefepime) Monitor for signs of infections ( Fever, WBC) strep pneumonia and Legionella urinary Ag is negative C-diff PCR negative on 01/13 01/09 BC : Staph Epi, Urine cx: Pseudomonas, Sputum cx: Pseudomonas, kleb, Staph. (Pseudomonas in sputum is only intermediately sensitive to cefepime, clinically improving. Patient was pancultured on 01/19 ( Blood, sputum, urine) follow up on cxs Heme: //Microcytic anemia //Stage III a non-Hodgkin's lymphoma - s/p chemotherapy 2014 Monitor CBC No further treatment recommended per heme oncology at this time. Endo: //History of diabetes mellitus On SSI (low scale) for glycemic control On metformin 500 daily at home. Derm //Stage IV decubitus ulcers -Dressing changes daily //GI prophylaxis with Protonix 40mg Q12 //DVT prophylaxis with SCD and Heparin SQ Discharge Planning appreciate case management assistance. Ramiro Rucker MD Jan 24, 2017 18:08
--- NOTE | 2017-01-24 18:48 | RADRPT ---
EXAM DATE/TIME: 01/24/2017 17:10 [facility] COMPARISON: CHANGE OF GJ-TUBE CATHETER, December 31, 2016, 16:35. INDICATIONS : Patient with history of CVA in need of clogged GJ tube exchange. MEDICAL HISTORY : 1. CVA 2.HTN 3.Non hodgkins lymphoma 4. Chemotherapy 5. DM 6. Esophagitis 7. MRSA 8. gastric ulcers 9. sacral ulcers SURGICAL HISTORY : 1. Peg tube placed 2. brain bx 3. Tracheostomy 4. left arm surgery ENCOUNTER: Subsequent ACUITY: >1 year PAIN SCORE: 0/10 FLUORO TIME: 1.0 minutes IMAGE SERIES: 0 CONTRAST: 20 cc Omnipaque (iohexol) 350 DEVICE(S): 1.) 22 [place] Transgastric tube PROCEDURE : 1. Fluoroscopically guided gastrojejunostomy tube exchange. 2. Conscious sedation with continuous EKG and oximetry monitoring. The risks, benefits and alternatives to the procedure were explained and verbal and written consent w as obtained. The site was prepped in sterile fashion. Full sterile technique was used, including ca p, mask, sterile gloves and gown and a large sterile sheet. Hand hygiene and 2% chlorhexidine and/or betadine/alcohol prep was utilized per protocol for cutaneous antisepsis. The skin and subcutaneous tissues were infiltrated with local anesthetic solution. With fluoroscopic guidance a guidewire was passed through the previous gastrojejunostomy tube and a f resh tube was placed over the guidewire. The balloon was inflated with appropriate volume of saline. Injection of positive contrast demonstrates good position of the gastric and jejunal lumens of the tube. Conscious sedation was performed with the prescribed dosages and duration as above in the presence of an independent trained radiology nurse to assist in the monitoring of the patient. EKG and oximetry remained stable throughout the procedure. The patient tolerated the procedure well and there were n o complications. The patient was sent to post anesthesia recovery in stable condition. CONCLUSION: Uncomplicated gastrojejunostomy tube exchange as above. Scott Griffin MD on January 24, 2017 at 18:46 Board Certified Radiologist. This report was verified electronically.
[2017-01-24] MEDS: LOPERAMIDE HCL SOLN 2 MG/10 ML UDC PEG PRN (20:05)
[2017-01-24] MEDS: PARoxetine HCL SUSP 20 MG/10 ML UDC PEG SCH (20:05)
[2017-01-25] VITALS (19 sets, daily range): BP systolic 96–133; BP diastolic 64–81; PULSE 82–122; RESP 23–32; TEMP 98–98.7; O2SAT 93–100
[2017-01-25] MEDS: INSULIN NovoLIN REGULAR SUPPLEMENTAL SCALE SQ SCH ×4 (04:00→22:00)
[2017-01-25] MEDS: PIPERACIL-TAZO 4.5 GM PREMIX 100 ML IV SCH ×4 (05:11→23:51)
[2017-01-25] MEDS: HEPARIN SODIUM - SQ 10,000 UNITS/ML VIAL SQ SCH ×3 (05:11→20:13)
[2017-01-25] MEDS: ACETIC ACID 0.25% SOLN 1000 ML IRR BTL IRRIGATION SCH ×4 (05:12→23:52)
[2017-01-25] MEDS: NYSTATIN 100,000 U/GM PWD 15 GM BTL TOPICAL SCH ×2 (09:00→20:14)
[2017-01-25] MEDS: BACITRACIN TOP OINT 15 GM TUBE TOP SCH ×2 (09:00→20:14)
[2017-01-25] MEDS: DILTIAZEM HCL 30 MG TAB PEG SCH ×4 (09:27→20:13)
[2017-01-25] MEDS: SODIUM CHLORIDE 0.65% NASAL SPRAY 45 ML BTL NASAL SCH ×2 (09:28→20:14)
[2017-01-25] MEDS: ASPIRIN 325 MG TAB TUBE SCH (09:28)
[2017-01-25] MEDS: levETIRAcetam 500 MG/5 ML UDC TUBE SCH ×2 (09:28→20:12)
[2017-01-25] MEDS: ARTIFICIAL TEARS OPTH SOLN 15 ML BTL EACH EYE SCH ×2 (09:28→20:13)
[2017-01-25] MEDS: PANTOPRAZOLE SODIUM 40 MG VIAL IV PUSH SCH ×2 (10:30→20:12)
[2017-01-25] MEDS: LACTULOSE SYRUP 20 GM/30 ML CUP PEG SCH (10:30)
[2017-01-25] MEDS: SODIUM CHLOR 0.9% 1000 ML INJ 1,000 ML IV SCH (11:53)
--- NOTE | 2017-01-25 15:44 | HHI.PR ---
Subjective Remarks Patient seen this morning around 11 AM. Doing well. Appears to deny pain. Objective Vital Signs Date Time Temp Pulse Resp B/P Pulse Ox O2 Delivery O2 Flow Rate FiO2 01/25/17 12:00 82 01/25/17 12:00 82 25 112/70 94 01/25/17 11:00 84 01/25/17 11:00 84 26 112/70 93 01/25/17 10:00 88 01/25/17 10:00 88 25 108/67 99 01/25/17 09:00 97 01/25/17 09:00 97 25 115/73 98 01/25/17 08:14 98 T-piece 28 01/25/17 08:00 98.0 99 25 112/69 98 01/25/17 08:00 99 01/25/17 07:00 106 25 103/67 97 01/25/17 07:00 106 01/25/17 06:00 114 01/25/17 06:00 114 23 104/65 95 01/25/17 05:00 122 01/25/17 05:00 122 32 133/81 99 01/25/17 04:00 120 01/25/17 04:00 98.2 118 30 122/75 95 01/25/17 00:00 110 01/25/17 00:00 98.7 108 31 124/76 100 01/24/17 20:06 100 T-piece 28 01/24/17 20:00 97.8 93 25 111/74 97 01/24/17 20:00 93 01/24/17 16:00 97.4 90 27 120/71 100 01/24/17 16:00 90 I/O 01/24/17 01/24/17 01/24/17 01/25/17 01/25/17 01/25/17 07:00 15:00 23:00 07:00 15:00 23:00 Intake Total 444 ml 1158 ml 558 ml 1153 ml Output Total 500 ml 1350 ml 700 ml 600 ml Balance -56 ml -192 ml -142 ml 553 ml IV Total 251 ml 590 ml 95 ml 261 ml Tube Feeding 193 ml 268 ml 263 ml 692 ml Other 300 ml 200 ml 200 ml Output Urine Total 500 ml 650 ml 300 ml 450 ml Stool Total 700 ml 400 ml 150 ml Result Diagram: 01/24/1760601/24/17606 Procedures 01/02/16 PEG placement 01/02/16 tracheostomy 07/22/2016 Wide excision of sacral skin wound, biopsy of the cavity lining and debridement. PEG tube replacement 07/29/16 Objective Remarks GENERAL: pt sitting up in bed. Appears comfortable. awake , alert. again, appears to answer no to family member in regards to whether he has pain, unchanged from yesterday.. SKIN: Warm and dry. HEAD: Normocephalic. EYES: No scleral icterus. No injection or drainage. NECK: Supple, trachea midline. No JVD. CARDIOVASCULAR: Regular rate and rhythm without murmurs, gallops, or rubs. RESPIRATORY: Breath sounds equal bilaterally. No accessory muscle use. GASTROINTESTINAL: Abdomen soft, non-tender, nondistended. PEG tube with no surrounding erythema. MUSCULOSKELETAL: No cyanosis, or edema. xamined sacral ulcer. No signs of infection. BACK: Nontender without obvious deformity. No CVA tenderness. A/P Assessment and Plan =========01/25/17 -Discussed with nursing. Start tube feedings. Switched to Jevity. Add free water flushes. -disContinue IV maintenance fluids. 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 On Keppra 500mg BID - 750 twice a day home prior to arrival. 01/10: CT brain: No acute hemorrhage or mass effect. 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 Atrophy. MRI brain 02/2016: Evolving brainstem and bilateral occipital lobe infarcts with evidence of subacute hemorrhagic products. There is decreasing restricted diffusion and increasing loss of volume characteristic of a subacute to chronic infarct. No evidence of acute infarct, acute hemorrhage mass or edema. 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 On Ativan 0.5 mg every 4 hours when necessary anxiety. On acetaminophen with codeine for pain scale of 2-10. Pulm: //Vent dependent respiratory failure //Right upper lobe/right middle lobe pulmonary nodules - outpatient CT scan without contrast in 6 months to follow-up Continue with oxygen keep sat >92%. Trach changed to size #6 XLT on 01/09 Duo nebs every 6 hours SBT/TP trials as karlie. Leave on TP 10/02 as tolerated Pulm toilet, trach care 01/09 CTA chest: No PE, bilateral lower lobe infiltrates. 4 mm right upper lobe /5 mm right middle lobe nodule.. CXR s morning unchanged. Pulm is following- Dr. Taylor CV: //History of paroxysmal atrial fibrillation currently in sinus tachycardia //Hypertension //Dyslipidemia Monitor HR and BP keep MAP>65mmHg. O Continue ASA 325mg daily, Cardizem 30mg QID Previously on sotalol 40 mg a night for paroxysmal fibrillation. Renal//FEN: Monitor renal function, Accurate I/O's electrolytes replacement per protocol. GI: //Mild protein calorie malnutrition //Gastroesophageal reflux disease On Protonix 40mg Q12, on tube feeds( Glucerna 1.5 @ 45ml/hr) J-tube is currently unplugged. On lactulose 30 cc daily for bowel regimen. Discontinue MOM in light of BMs. ID: //Klebsiella/Pseudomonas/staph aureus HCAP //Klebsiella UTI Continue abx per ID( Cefepime) Monitor for signs of infections ( Fever, WBC) strep pneumonia and Legionella urinary Ag is negative C-diff PCR negative on 01/13 01/09 BC : Staph Epi, Urine cx: Pseudomonas, Sputum cx: Pseudomonas, kleb, Staph. (Pseudomonas in sputum is only intermediately sensitive to cefepime, clinically improving. Patient was pancultured on 01/19 ( Blood, sputum, urine) follow up on cxs Heme: //Microcytic anemia //Stage III a non-Hodgkin's lymphoma - s/p chemotherapy 2014 Monitor CBC No further treatment recommended per heme oncology at this time. Endo: //History of diabetes mellitus On SSI (low scale) for glycemic control On metformin 500 daily at home. Derm //Stage IV decubitus ulcers -Dressing changes daily //GI prophylaxis with Protonix 40mg Q12 //DVT prophylaxis with SCD and Heparin SQ Discharge Planning appreciate case management assistance. Ramiro Rucker MD Jan 25, 2017 15:44
[2017-01-25] MEDS: SENNOSIDES SYRUP 8.8 MG/5 ML CUP PEG SCH (16:00)
[2017-01-25] MEDS: HYOSCYAMINE 0.125 MG TAB G-TUBE PRN (20:13)
[2017-01-25] MEDS: PARoxetine HCL SUSP 20 MG/10 ML UDC PEG SCH (20:14)
[2017-01-26] VITALS (10 sets, daily range): BP systolic 95–119; BP diastolic 64–78; PULSE 79–92; RESP 24–27; TEMP 98.3–99.3; O2SAT 95–99
[2017-01-26] MEDS: INSULIN NovoLIN REGULAR SUPPLEMENTAL SCALE SQ SCH ×4 (04:00→21:04)
[2017-01-26] MEDS: PIPERACIL-TAZO 4.5 GM PREMIX 100 ML IV SCH ×4 (04:38→21:16)
[2017-01-26] MEDS: HEPARIN SODIUM - SQ 10,000 UNITS/ML VIAL SQ SCH ×3 (04:38→21:04)
[2017-01-26] MEDS: ACETIC ACID 0.25% SOLN 1000 ML IRR BTL IRRIGATION SCH ×3 (04:39→21:03)
[2017-01-26] MEDS: DILTIAZEM HCL 30 MG TAB PEG SCH ×4 (07:49→21:00)
[2017-01-26] MEDS: SODIUM CHLORIDE 0.65% NASAL SPRAY 45 ML BTL NASAL SCH ×2 (07:49→20:56)
[2017-01-26] MEDS: ASPIRIN 325 MG TAB TUBE SCH (07:50)
[2017-01-26] MEDS: BACITRACIN TOP OINT 15 GM TUBE TOP SCH ×2 (07:50→21:00)
[2017-01-26] MEDS: NYSTATIN 100,000 U/GM PWD 15 GM BTL TOPICAL SCH ×2 (07:50→21:00)
[2017-01-26] MEDS: ARTIFICIAL TEARS OPTH SOLN 15 ML BTL EACH EYE SCH ×2 (07:50→20:56)
[2017-01-26] MEDS: levETIRAcetam 500 MG/5 ML UDC TUBE SCH ×2 (07:50→21:04)
[2017-01-26] MEDS: LACTULOSE SYRUP 20 GM/30 ML CUP PEG SCH (07:51)
[2017-01-26] MEDS: PANTOPRAZOLE SODIUM 40 MG VIAL IV PUSH SCH (12:01)
[2017-01-26] MEDS: SENNOSIDES SYRUP 8.8 MG/5 ML CUP PEG SCH (16:00)
--- NOTE | 2017-01-26 16:19 | HHI.PR ---
Subjective Remarks Patient seen this morning around 11:30 AM. No acute changes per nursing. Discussed with mother at bedside. Objective Vital Signs Date Time Temp Pulse Resp B/P Pulse Ox O2 Delivery O2 Flow Rate FiO2 01/26/17 12:00 98.9 79 24 106/64 98 01/26/17 12:00 91 01/26/17 10:00 91 01/26/17 09:00 99 T-piece 28 01/26/17 08:00 99.2 86 27 115/69 98 01/26/17 08:00 91 01/26/17 07:13 99.2 86 27 115/69 98 01/26/17 04:00 92 01/26/17 04:00 99.3 90 24 119/76 98 01/26/17 00:00 84 01/26/17 00:00 98.4 86 24 108/71 97 01/25/17 22:32 95 T-piece 5.00 28 01/25/17 20:00 91 01/25/17 20:00 98.3 91 25 103/66 99 01/25/17 17:00 91 01/25/17 17:00 91 28 128/76 97 I/O 01/25/17 01/25/17 01/25/17 01/26/17 01/26/17 01/26/17 06:59 14:59 22:59 06:59 14:59 22:59 Intake Total 558 ml 1153 ml 1234 ml 733 ml 754 ml Output Total 700 ml 600 ml 500 ml 321 ml 400 ml Balance -142 ml 553 ml 734 ml 412 ml 354 ml IV Total 95 ml 261 ml 507 ml 400 ml 179 ml Tube Feeding 263 ml 692 ml 477 ml 233 ml 425 ml Other 200 ml 200 ml 250 ml 100 ml 150 ml Output Urine Total 300 ml 450 ml 400 ml 171 ml 300 ml Stool Total 400 ml 150 ml 100 ml 150 ml 100 ml Result Diagram: 01/24/17 0607 01/24/17 0607 Procedures 01/02/16 PEG placement 01/02/16 tracheostomy 07/22/2016 Wide excision of sacral skin wound, biopsy of the cavity lining and debridement. PEG tube replacement 07/29/16 Objective Remarks GENERAL: pt sitting up in bed. Appears comfortable. awake , alert. Yet again, appears to answer no to family member in regards to whether he has pain, again unchanged from yesterday.. SKIN: Warm and dry. HEAD: Normocephalic. EYES: No scleral icterus. No injection or drainage. NECK: Supple, trachea midline. No JVD. CARDIOVASCULAR: Regular rate and rhythm without murmurs, gallops, or rubs. RESPIRATORY: Breath sounds equal bilaterally. No accessory muscle use. GASTROINTESTINAL: Abdomen soft, non-tender, nondistended. PEG tube with no surrounding erythema. MUSCULOSKELETAL: No cyanosis, or edema. 75examined sacral ulcer. No signs of infection. BACK: Nontender without obvious deformity. No CVA tenderness. A/P Assessment and Plan =========01/26/17 Patient appears to be doing well. Continue IV antibiotics as per ID. Recheck labs tomorrow. 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 On Keppra 500mg BID - 750 twice a day home prior to arrival. 01/10: CT brain: No acute hemorrhage or mass effect. 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 Atrophy. MRI brain 02/2016: Evolving brainstem and bilateral occipital lobe infarcts with evidence of subacute hemorrhagic products. There is decreasing restricted diffusion and increasing loss of volume characteristic of a subacute to chronic infarct. No evidence of acute infarct, acute hemorrhage mass or edema. 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 On Ativan 0.5 mg every 4 hours when necessary anxiety. On acetaminophen with codeine for pain scale of 2-10. Pulm: //Vent dependent respiratory failure //Right upper lobe/right middle lobe pulmonary nodules - outpatient CT scan without contrast in 6 months to follow-up Continue with oxygen keep sat >92%. Trach changed to size #6 XLT on 01/09 Duo nebs every 6 hours SBT/TP trials as karlie. Leave on TP 10/02 as tolerated Pulm toilet, [facility] care 01/09 CTA chest: No PE, bilateral lower lobe infiltrates. 4 mm right upper lobe /5 mm right middle lobe nodule.. CXR ths morning unchanged. Pulm is following- Dr. Taylor CV: //History of paroxysmal atrial fibrillation currently in sinus tachycardia //Hypertension //Dyslipidemia Monitor HR and BP keep MAP>65mmHg. O Continue ASA 325mg daily, Cardizem 30mg QID Previously on sotalol 40 mg a night for paroxysmal fibrillation. Renal//FEN: Monitor renal function, Accurate I/O's electrolytes replacement per protocol. GI: //Mild protein calorie malnutrition //Gastroesophageal reflux disease On Protonix 40mg Q12, on tube feeds( Glucerna 1.5 @ 45ml/hr) J-tube is currently unplugged. On lactulose 30 cc daily for bowel regimen. Discontinue MOM in light of BMs. ID: //Klebsiella/Pseudomonas/staph aureus HCAP //Klebsiella UTI Continue abx per ID( Cefepime) Monitor for signs of infections ( Fever, WBC) strep pneumonia and Legionella urinary Ag is negative C-diff PCR negative on 01/13 01/09 BC : Staph Epi, Urine cx: Pseudomonas, Sputum cx: Pseudomonas, kleb, Staph. (Pseudomonas in sputum is only intermediately sensitive to cefepime, clinically improving. Patient was pancultured on 01/19 ( Blood, sputum, urine) follow up on cxs Heme: //Microcytic anemia //Stage III a non-Hodgkin's lymphoma - s/p chemotherapy 2014 Monitor CBC No further treatment recommended per heme oncology at this time. Endo: //History of diabetes mellitus On SSI (low scale) for glycemic control On metformin 500 daily at home. Derm //Stage IV decubitus ulcers -Dressing changes daily //GI prophylaxis with Protonix 40mg Q12 //DVT prophylaxis with SCD and Heparin SQ Discharge Planning appreciate case management assistance. Ramiro Rucker MD Jan 26, 2017 16:19
--- NOTE | 2017-01-26 17:42 | HHI.PR ---
Objective Vitals Vital Signs Date Time Temp Pulse Resp B/P Pulse Ox O2 Delivery O2 Flow Rate FiO2 01/26/17 12:00 98.9 79 24 106/64 98 01/26/17 12:00 91 01/26/17 10:00 91 01/26/17 09:00 99 T-piece 28 01/26/17 08:00 99.2 86 27 115/69 98 01/26/17 08:00 91 01/26/17 07:13 99.2 86 27 115/69 98 01/26/17 04:00 92 01/26/17 04:00 99.3 90 24 119/76 98 01/26/17 00:00 84 01/26/17 00:00 98.4 86 24 108/71 97 01/25/17 22:32 95 T-piece 5.00 28 01/25/17 20:00 91 01/25/17 20:00 98.3 91 25 103/66 99 I/O 01/25/17 01/25/17 01/25/17 01/26/17 01/26/17 01/26/17 07:00 15:00 23:00 07:00 15:00 23:00 Intake Total 558 ml 1153 ml 1234 ml 733 ml 754 ml Output Total 700 ml 600 ml 500 ml 321 ml 400 ml Balance -142 ml 553 ml 734 ml 412 ml 354 ml IV Total 95 ml 261 ml 507 ml 400 ml 179 ml Tube Feeding 263 ml 692 ml 477 ml 233 ml 425 ml Other 200 ml 200 ml 250 ml 100 ml 150 ml Output Urine Total 300 ml 450 ml 400 ml 171 ml 300 ml Stool Total 400 ml 150 ml 100 ml 150 ml 100 ml Result Diagram: 01/24/17 0607 01/24/17 0607 Imaging Last Impressions Tube Change 01/24/17 0000 Signed Impressions: Service Date/Time: Tuesday, January 24, 2017 17:10 - CONCLUSION: Uncomplicated gastrojejunostomy tube exchange as above. Scott Griffin MD Chest X-Ray 01/20/17 0600 Signed Impressions: Service Date/Time: Friday, January 20, 2017 04:22 - CONCLUSION: 1. Bibasilar patchy densities, unchanged. 2. Tracheostomy tube unchanged. Mikie Vargas MD Head CT 01/09/17 0000 Signed Impressions: Service Date/Time: December 17:43 - CONCLUSION: 1. No acute hemorrhage or mass effect. 2. 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 3. Atrophy. Gerald Mukherjee MD CT Angiography 01/09/17 0000 Signed Impressions: Service Date/Time: December 17:49 - CONCLUSION: 1. No evidence of pulmonary emboli. 2. Patchy consolidation in both posterior lower lobes right greater than left. This could represent pneumonia. 3. 2 small noncalcified pulmonary nodules which are nonspecific finding. Short-term CT followup is recommended beginning in 6 months with a noncontrast outpatient CT. Gerald Mukherjee MD Tube Check 12/04/16 0000 Signed Impressions: Service Date/Time: Sunday, December 04, 2016 17:58 - CONCLUSION: Uncomplicated tube injection as above. the tube is in good position and functions normally. Moises Ramírez MD Abdomen X-Ray 08/31/16 0000 Signed Impressions: Service Date/Time: Wednesday, August 31, 2016 16:36 - CONCLUSION: 1. No acute findings. Mild constipation. Durga Dotson MD Abdomen/Pelvis CT 04/12/16 0000 Signed Impressions: Service Date/Time: Tuesday, April 12, 2016 20:52 - CONCLUSION: 1. 6.4 cm necrotic mass or abscess in the soft tissues posteriorly just below the sacrum associated with some bony destructive change of the lower most sacrum and coccyx with inflammatory changes extending into the ischiorectal fossa and into the presacral retroperitoneum predominantly on the left side. There is associated fairly marked mural thickening of the anal verge and rectum. 2. There is gastrostomy and Arevalo catheter present. Stable abdominal aortic aneurysm. Durga Dotson MD Head Magnetic Resonance Angiography 03/05/16 0000 Signed Impressions: Service Date/Time: Saturday, March 05, 2016 09:26 - CONCLUSION: Persistent high-grade subtotal occlusive stenotic lesions in the distal right vertebral artery and proximal basilar artery with significant improvement in flow and recanalization following initial presentation of thrombosis. Stable interstitial circulation without significant stenosis. 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 There is decreasing restricted diffusion and increasing loss of volume characteristic of a subacute to chronic infarct. No evidence of acute infarct, acute hemorrhage mass or edema. Ernesto Kulkarni MD Neck Magnetic Resonance Angiography 12/22/15 1445 Signed Impressions: Service Date/Time: Tuesday, December 22, 2015 09:22 - CONCLUSION: Variant origin of the left vertebral artery from the aortic arch. No evidence of carotid stenosis. Glen Zamora MD Head/Brain Mag Res Venography 12/22/15 0000 Signed Impressions: Service Date/Time: Tuesday, December 22, 2015 09:22 - CONCLUSION: Normal MRV. Jonel Jones Jr., MD Objective Remarks GENERAL: pt sitting up in bed. Appears comfortable. awake , alert. Again, appears to answer no to family member in regards to whether he has pain SKIN: Warm and dry. HEAD: Normocephalic. EYES: No scleral icterus. No injection or drainage. NECK: Supple, trachea midline. No JVD. CARDIOVASCULAR: Regular rate and rhythm without murmurs, gallops, or rubs. RESPIRATORY: Breath sounds equal bilaterally. No accessory muscle use. GASTROINTESTINAL: Abdomen soft, non-tender, nondistended. PEG tube with no surrounding erythema. MUSCULOSKELETAL: No cyanosis, or edema. 7/5examined sacral ulcer. No signs of infection. BACK: Nontender without obvious deformity. No CVA tenderness. Procedures 01/02/16 PEG placement 01/02/16 tracheostomy 07/22/2016 Wide excision of sacral skin wound, biopsy of the cavity lining and debridement. PEG removal and Gj tube placement 07/29/16 VAC changes- M-W-F 10/23/16, 11/18, 12/31- GJ tube replacement A/P Problem List: (1) CVA (cerebral vascular accident) ICD Code: I63.9 Status: Acute (2) A-fib ICD Code: I48.91 Status: Chronic (3) DM (diabetes mellitus) ICD Code: E11.9 Status: Chronic Assessment and Plan Neuro/Psych: //Initial hospitalization [facility] and cerebellar CVA with Basilar artery thrombosis //Status post brain biopsy on December 13: Path report - acute infarct, no evidence of lymphoma //Depression Monitor neuro status, Off sedation. On Keppra 500mg BID - 750 twice a day home prior to arrival. On Paxil 20 by mouth daily for depression. On Ativan 0.5 mg every 4 hours when necessary anxiety. On acetaminophen with codeine for pain scale of 2-10. Pulm: //Vent dependent respiratory failure //Right upper lobe/right middle lobe pulmonary nodules - outpatient CT scan without contrast in 6 months to follow-up Continue with oxygen keep sat >92%. Trach changed to size #6 XLT on 01/09 Duo nebs every 6 hours SBT/TP trials as karlie. Leave on TP 10/02 as tolerated Pulm toilet, trach care 01/09 CTA chest: No PE, bilateral lower lobe infiltrates. 4 mm right upper lobe /5 mm right middle lobe nodule.. Pulm is following- Dr. Taylor CV: //History of paroxysmal atrial fibrillation currently in sinus tachycardia //Hypertension //Dyslipidemia Monitor HR and BP keep MAP>65mmHg. O Continue ASA 325mg daily, Cardizem 30mg QID Previously on sotalol 40 mg a night for paroxysmal fibrillation. Renal//FEN: Monitor renal function, Accurate I/O's electrolytes replacement per protocol. GI: //Mild protein calorie malnutrition //Gastroesophageal reflux disease On Protonix 40mg Q12, on tube feeds( Glucerna 1.5 @ 45ml/hr) J-tube is currently unplugged. On lactulose 30 cc daily for bowel regimen. Discontinue MOM in light of BMs. ID: //Klebsiella/Pseudomonas/staph aureus HCAP //Klebsiella UTI Continue abx per ID( Cefepime for 5 more days) Monitor for signs of infections ( Fever, WBC) strep pneumonia and Legionella urinary Ag is negative C-diff PCR negative on 01/13 01/09 BC : Staph Epi, Urine cx: Pseudomonas, Sputum cx: Pseudomonas, kleb, Staph. (Pseudomonas in sputum is only intermediately sensitive to cefepime, clinically improving. Patient was pancultured on 01/19 ( Blood, sputum, urine) follow up on cxs Heme: //Microcytic anemia //Stage III a non-Hodgkin's lymphoma - s/p chemotherapy 2014 Monitor CBC No further treatment recommended per heme oncology at this time. Endo: //History of diabetes mellitus On SSI (low scale) for glycemic control On metformin 500 daily at home. Derm //Stage IV decubitus ulcers -Dressing changes daily //GI prophylaxis with Protonix 40mg Q12 //DVT prophylaxis with SCD and Heparin SQ Discharge Planning Needs placement if family consents. Problem Qualifiers (1) CVA (cerebral vascular accident): (2) DM (diabetes mellitus): Qualified Code: E11.9 - Type 2 diabetes mellitus without complications Thomas Buck MD Jan 26, 2017 17:42 //DVT prophylaxis with SCD and Heparin SQ Discharge Planning Needs placement if family consents. Problem Qualifiers (1) CVA (cerebral vascular accident): (2) DM (diabetes mellitus): Qualified Code: E11.9 - Type 2 diabetes mellitus without complications Thomas Buck MD Jan 26, 2017 17:42
[2017-01-26] MEDS: PARoxetine HCL SUSP 20 MG/10 ML UDC PEG SCH (17:55)
[2017-01-26] MEDS: LANSOPRAZOLE SOLUTAB 30 MG TAB NG SCH (21:00)
[2017-01-26 21:13] LABS: MEAN CORPUSCULAR HGB CONC 29.9 % (32.0-36.0)
[2017-01-27] VITALS (8 sets, daily range): BP systolic 90–121; BP diastolic 9–79; PULSE 85–93; RESP 22–30; TEMP 97.8–98.8; O2SAT 8–98
[2017-01-27] MEDS: INSULIN NovoLIN REGULAR SUPPLEMENTAL SCALE SQ SCH ×4 (04:00→22:00)
[2017-01-27] MEDS: ACETIC ACID 0.25% SOLN 1000 ML IRR BTL IRRIGATION SCH ×3 (05:07→22:00)
[2017-01-27] MEDS: HEPARIN SODIUM - SQ 10,000 UNITS/ML VIAL SQ SCH ×3 (05:07→22:57)
[2017-01-27] MEDS: PIPERACIL-TAZO 4.5 GM PREMIX 100 ML IV SCH (05:07)
[2017-01-27 05:38] LABS: AUTOMATED NEUTROPHIL # 2.4 TH/MM3 (1.8-7.7); BASOPHIL # 0.1 TH/MM3 (0-0.2); BASOPHIL % 1.4 % (0.0-2.0); EOSINOPHIL # 0.3 TH/MM3 (0-0.4); EOSINOPHIL % 7.2 % (0.0-4.0); HEMATOCRIT 29.1 % (39.0-51.0); HEMO FLAGS DIFF FINAL; LYMPHOCYTE # 1.2 TH/MM3 (1.0-4.8); MEAN CELL VOLUME 73.8 FL (80.0-100.0); MEAN CORPUSCULAR HEMOGLOBIN 22.1 PG (27.0-34.0); MONO % 7.3 % (0.0-8.0); NEUT % 56.1 % (16.0-70.0); PLATELET COUNT 227 TH/MM3 (150-450); RED BLOOD COUNT 3.94 MIL/MM3 (4.50-5.90); RED CELL DISTRIBUTION WIDTH 21.1 % (11.6-17.2); WHITE BLOOD COUNT 4.3 TH/MM3 (4.0-11.0)
[2017-01-27 05:59] LABS: MAGNESIUM 1.9 MG/DL (1.5-2.5)
[2017-01-27 06:00] LABS: POTASSIUM 4.6 MEQ/L (3.5-5.1)
[2017-01-27] MEDS: LANSOPRAZOLE SOLUTAB 30 MG TAB NG SCH ×2 (08:30→22:58)
[2017-01-27] MEDS: DILTIAZEM HCL 30 MG TAB PEG SCH ×4 (08:30→22:57)
[2017-01-27] MEDS: ASPIRIN 325 MG TAB TUBE SCH (08:30)
[2017-01-27] MEDS: levETIRAcetam 500 MG/5 ML UDC TUBE SCH ×2 (08:31→22:58)
[2017-01-27] MEDS: LACTULOSE SYRUP 20 GM/30 ML CUP PEG SCH (08:31)
[2017-01-27] MEDS: SODIUM CHLORIDE 0.65% NASAL SPRAY 45 ML BTL NASAL SCH ×2 (08:32→21:00)
[2017-01-27] MEDS: ARTIFICIAL TEARS OPTH SOLN 15 ML BTL EACH EYE SCH ×2 (08:32→21:00)
[2017-01-27] MEDS: NYSTATIN 100,000 U/GM PWD 15 GM BTL TOPICAL SCH ×2 (08:32→21:00)
[2017-01-27] MEDS: BACITRACIN TOP OINT 15 GM TUBE TOP SCH ×2 (08:33→21:00)
--- NOTE | 2017-01-27 15:25 | HHI.PR ---
Subjective Remarks ass OPENS EYES NO DISTRESS SAT 100% PULSE 82 Objective Vital Signs Date Time Temp Pulse Resp B/P Pulse Ox O2 Delivery O2 Flow Rate FiO2 01/27/17 12:00 86 01/27/17 12:00 97.8 86 23 120/69 8 01/27/17 08:00 98.3 93 30 116/79 93 01/27/17 08:00 93 01/27/17 04:00 98.7 93 25 90/59 95 01/27/17 04:00 90 01/27/17 00:00 85 01/27/17 00:00 98.8 85 25 101/63 97 01/26/17 20:00 83 01/26/17 20:00 98.3 83 25 95/67 99 01/26/17 19:30 95 T-piece 5.00 28 01/26/17 16:00 99.0 87 24 108/78 98 01/26/17 16:00 91 I/O 01/26/17 01/26/17 01/26/17 01/27/17 01/27/17 01/27/17 07:00 15:00 23:00 07:00 15:00 23:00 Intake Total 733 ml 754 ml 828 ml 688 ml 681 ml Output Total 321 ml 400 ml 800 ml 850 ml 425 ml Balance 412 ml 354 ml 28 ml -162 ml 256 ml IV Total 400 ml 179 ml 138 ml 238 ml Tube Feeding 233 ml 425 ml 440 ml 300 ml 381 ml Tube Irrigant 300 ml Other 100 ml 150 ml 250 ml 150 ml Output Urine Total 171 ml 300 ml 750 ml 750 ml 200 ml Stool Total 150 ml 100 ml 50 ml 100 ml 225 ml Result Diagram: 01/27/17 0416 01/27/17 0416 Procedures 01/02/16 PEG placement 01/02/16 tracheostomy 07/22/2016 Wide excision of sacral skin wound, biopsy of the cavity lining and debridement. PEG tube replacement 07/29/16 Objective Remarks GENERAL: SKIN: Warm and dry. HEAD: Atraumatic. Normocephalic. EYES: Pupils equal and round. No scleral icterus. No injection or drainage. ENT: No nasal bleeding or discharge. Mucous membranes pink and moist. NECK: Trachea midline. No JVD. CARDIOVASCULAR: Regular rate and rhythm. RESPIRATORY: No accessory muscle use. Clear to auscultation. Breath sounds equal bilaterally. GASTROINTESTINAL: Abdomen soft, non-tender, nondistended. Hepatic and splenic margins not palpable. MUSCULOSKELETAL: Extremities without clubbing, cyanosis, or edema. No obvious deformities. NEUROLOGICAL: Awake and alert. No obvious cranial nerve deficits. Motor grossly within normal limits. Five out of 5 muscle strength in the arms and legs. Normal speech. PSYCHIATRIC: Appropriate mood and affect; insight and judgment normal. Laboratory Tests Test 01/05/17 01/06/17 08:35 08:41 Red Blood Count 4.43 MIL/MM3 (4.50-5.90) Hemoglobin 9.9 GM/DL (13.0-17.0) Hematocrit 32.0 % (39.0-51.0) Mean Corpuscular Volume 72.1 FL (80.0-100.0) Mean Corpuscular Hemoglobin 22.3 PG (27.0-34.0) Mean Corpuscular Hemoglobin 30.9 % Concent (32.0-36.0) Red Cell Distribution Width 19.9 % (11.6-17.2) Sodium Level 134 MEQ/L 133 MEQ/L (136-145) (136-145) Random Glucose 136 MG/DL 132 MG/DL (74-106) (74-106) Creatinine 0.59 MG/DL (0.60-1.30) GENERAL: SKIN: Warm and dry. HEAD: Atraumatic. Normocephalic. EYES: Pupils equal and round. No scleral icterus. No injection or drainage. ENT: No nasal bleeding or discharge. Mucous membranes pink and moist. NECK: Trachea midline. No JVD. TRACH. [place] CARDIOVASCULAR: Regular rate and rhythm. RESPIRATORY: No accessory muscle use. Clear to auscultation. Breath sounds equal bilaterally. GASTROINTESTINAL: Abdomen soft, non-tender, nondistended. Hepatic and splenic margins not palpable. MUSCULOSKELETAL: Extremities without clubbing, cyanosis, or edema. No obvious deformities. NEUROLOGICAL: Awake and alert. No obvious cranial nerve deficits. Motor grossly within normal limits. Five out of 5 muscle strength in the arms and legs. Normal speech. PSYCHIATRIC: Appropriate mood and affect; insight and judgment normal. Assessment and Plan Assessment and Plan impression respiratory failure CVA S/P TRACHEOSTOMY SEPSIS PLAN O2 NEEDED PULM. TOILET ANTIBIOTICS PER ID [place] Brandon Moy MD Jan 27, 2017 15:25
--- NOTE | 2017-01-27 15:26 | HHI.PR ---
Subjective Remarks Follow-up encephalopathy, pneumonia, UTI and sepsis. Seen with mother. Discussed with RN. No fever. Scant white trach secretions. Objective Vitals Vital Signs Date Time Temp Pulse Resp B/P Pulse Ox O2 Delivery O2 Flow Rate FiO2 01/27/17 12:00 86 01/27/17 12:00 97.8 86 23 120/69 8 01/27/17 08:00 98.3 93 30 116/79 93 01/27/17 08:00 93 01/27/17 04:00 98.7 93 25 90/59 95 01/27/17 04:00 90 01/27/17 00:00 85 01/27/17 00:00 98.8 85 25 101/63 97 01/26/17 20:00 83 01/26/17 20:00 98.3 83 25 95/67 99 01/26/17 19:30 95 T-piece 5.00 28 01/26/17 16:00 99.0 87 24 108/78 98 01/26/17 16:00 91 I/O 01/26/17 01/26/17 01/26/17 01/27/17 01/27/17 01/27/17 07:00 15:00 23:00 07:00 15:00 23:00 Intake Total 733 ml 754 ml 828 ml 688 ml 681 ml Output Total 321 ml 400 ml 800 ml 850 ml 425 ml Balance 412 ml 354 ml 28 ml -162 ml 256 ml IV Total 400 ml 179 ml 138 ml 238 ml Tube Feeding 233 ml 425 ml 440 ml 300 ml 381 ml Tube Irrigant 300 ml Other 100 ml 150 ml 250 ml 150 ml Output Urine Total 171 ml 300 ml 750 ml 750 ml 200 ml Stool Total 150 ml 100 ml 50 ml 100 ml 225 ml Result Diagram: 01/27/17 0416 01/27/17 0416 Imaging Last Impressions Tube Change 01/24/17 0000 Signed Impressions: Service Date/Time: Tuesday, January 24, 2017 17:10 - CONCLUSION: Uncomplicated gastrojejunostomy tube exchange as above. Scott Griffin MD Chest X-Ray 01/20/17 0600 Signed Impressions: Service Date/Time: Friday, January 20, 2017 04:22 - CONCLUSION: 1. Bibasilar patchy densities, unchanged. 2. Tracheostomy tube unchanged. Mikie Vargas MD Head CT 01/09/17 0000 Signed Impressions: Service Date/Time: December 17:43 - CONCLUSION: 1. No acute hemorrhage or mass effect. 2. 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 3. Atrophy. Gerald Mukherjee MD CT Angiography 01/09/17 0000 Signed Impressions: Service Date/Time: December 17:49 - CONCLUSION: 1. No evidence of pulmonary emboli. 2. Patchy consolidation in both posterior lower lobes right greater than left. This could represent pneumonia. 3. 2 small noncalcified pulmonary nodules which are nonspecific finding. Short-term CT followup is recommended beginning in 6 months with a noncontrast outpatient CT. Gerald Mukherjee MD Tube Check 12/04/16 0000 Signed Impressions: Service Date/Time: Sunday, December 04, 2016 17:58 - CONCLUSION: Uncomplicated tube injection as above. the tube is in good position and functions normally. Moises Ramírez MD Abdomen X-Ray 08/31/16 0000 Signed Impressions: Service Date/Time: Wednesday, August 31, 2016 16:36 - CONCLUSION: 1. No acute findings. Mild constipation. Durga Dotson MD Abdomen/Pelvis CT 04/12/16 0000 Signed Impressions: Service Date/Time: Tuesday, April 12, 2016 20:52 - CONCLUSION: 1. 6.4 cm necrotic mass or abscess in the soft tissues posteriorly just below the sacrum associated with some bony destructive change of the lower most sacrum and coccyx with inflammatory changes extending into the ischiorectal fossa and into the presacral retroperitoneum predominantly on the left side. There is associated fairly marked mural thickening of the anal verge and rectum. 2. There is gastrostomy and Arevalo catheter present. Stable abdominal aortic aneurysm. Durga Dotson MD Head Magnetic Resonance Angiography 03/05/16 0000 Signed Impressions: Service Date/Time: Saturday, March 05, 2016 09:26 - CONCLUSION: Persistent high-grade subtotal occlusive stenotic lesions in the distal right vertebral artery and proximal basilar artery with significant improvement in flow and recanalization following initial presentation of thrombosis. Stable interstitial circulation without significant stenosis. 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 There is decreasing restricted diffusion and increasing loss of volume characteristic of a subacute to chronic infarct. No evidence of acute infarct, acute hemorrhage mass or edema. Ernesto Kulkarni MD Neck Magnetic Resonance Angiography 12/22/15 1445 Signed Impressions: Service Date/Time: Tuesday, December 22, 2015 09:22 - CONCLUSION: Variant origin of the left vertebral artery from the aortic arch. No evidence of carotid stenosis. Glen Zamora MD Head/Brain Mag Res Venography 12/22/15 0000 Signed Impressions: Service Date/Time: Tuesday, December 22, 2015 09:22 - CONCLUSION: Normal MRV. Jonel Jones Jr., MD Objective Remarks GENERAL: Appears comfortable. Awake , alert. SKIN: Warm and dry. HEAD: Normocephalic. EYES: No scleral icterus. No injection or drainage. NECK: Supple, trachea midline. No JVD. CARDIOVASCULAR: Regular rate and rhythm without murmurs, gallops, or rubs. RESPIRATORY: Breath sounds equal bilaterally. No accessory muscle use. GASTROINTESTINAL: Abdomen soft, non-tender, nondistended. PEG tube with no surrounding erythema. MUSCULOSKELETAL: No cyanosis, or edema. BACK: Nontender without obvious deformity. No CVA tenderness. Procedures 01/02/16 PEG placement 01/02/16 tracheostomy 07/22/2016 Wide excision of sacral skin wound, biopsy of the cavity lining and debridement. PEG removal and Gj tube placement 07/29/16 VAC changes- M-W-F 10/23/16, 11/18, 12/31- GJ tube replacement A/P Problem List: (1) CVA (cerebral vascular accident) ICD Code: I63.9 Status: Acute (2) A-fib ICD Code: I48.91 Status: Chronic (3) DM (diabetes mellitus) ICD Code: E11.9 Status: Chronic Assessment and Plan Neuro/Psych: //Initial hospitalization [place] and cerebellar CVA with Basilar artery thrombosis //Status post brain biopsy on December 13: Path report - acute infarct, no evidence of lymphoma //Depression Monitor neuro status, Off sedation. On Keppra 500mg BID - 750 twice a day home prior to arrival. On Paxil 20 by mouth daily for depression. On Ativan 0.5 mg every 4 hours when necessary anxiety. On acetaminophen with codeine for pain scale of 2-10. Pulm: //Vent dependent respiratory failure //Right upper lobe/right middle lobe pulmonary nodules - outpatient CT scan without contrast in 6 months to follow-up Continue with oxygen keep sat >92%. Trach changed to size #6 XLT on 01/09 Duo nebs every 6 hours SBT/TP trials as karlie. Leave on TP 10/02 as tolerated Pulm toilet, trach care 01/09 CTA chest: No PE, bilateral lower lobe infiltrates. 4 mm right upper lobe /5 mm right middle lobe nodule.. Pulm is following- Dr. Taylor CV: //History of paroxysmal atrial fibrillation currently in sinus tachycardia //Hypertension //Dyslipidemia Monitor HR and BP keep MAP>65mmHg. O Continue ASA 325mg daily, Cardizem 30mg QID Previously on sotalol 40 mg a night for paroxysmal fibrillation. Renal//FEN: Monitor renal function, Accurate I/O's electrolytes replacement per protocol. GI: //Mild protein calorie malnutrition //Gastroesophageal reflux disease On Prevacid 30 mg Q12, on tube feeds( Glucerna 1.5 @ 45ml/hr) J-tube is currently unplugged. On lactulose 30 cc daily for bowel regimen. Discontinue MOM in light of BMs. ID: //Klebsiella/Pseudomonas/staph aureus HCAP //PSAE UTI S/p Cefepime. Monitor for signs of infections ( Fever, WBC) strep pneumonia and Legionella urinary Ag is negative C-diff PCR negative on 01/13 01/09 BC : Staph Epi, Urine cx: Pseudomonas, Sputum cx: Pseudomonas, kleb, Staph. (Pseudomonas in sputum is only intermediately sensitive to cefepime, clinically improving. Patient was pancultured on 01/19 ( Blood, sputum, urine) follow up on cxs Heme: //Microcytic anemia //Stage III a non-Hodgkin's lymphoma - s/p chemotherapy 2014 Monitor CBC No further treatment recommended per heme oncology at this time. Endo: //History of diabetes mellitus On SSI (low scale) for glycemic control On metformin 500 daily at home. Derm //Stage IV decubitus ulcers -Dressing changes daily //GI prophylaxis with Prevacid 30 mg Q12 //DVT prophylaxis with SCD and Heparin SQ Discharge Planning Needs placement if family consents. Stable for transfer to floor near nurses station awaiting bed Problem Qualifiers (1) CVA (cerebral vascular accident): (2) DM (diabetes mellitus): Qualified Code: E11.9 - Type 2 diabetes mellitus without complications Thomas Buck MD Jan 27, 2017 15:26
[2017-01-27] MEDS: PARoxetine HCL SUSP 20 MG/10 ML UDC PEG SCH (18:00)
[2017-01-28] VITALS (8 sets, daily range): BP systolic 123–146; BP diastolic 71–82; PULSE 86–96; RESP 18–22; TEMP 97.2–98.2; O2SAT 96–99
[2017-01-28] MEDS: ACETIC ACID 0.25% SOLN 1000 ML IRR BTL IRRIGATION SCH ×3 (03:17→21:17)
[2017-01-28] MEDS: INSULIN NovoLIN REGULAR SUPPLEMENTAL SCALE SQ SCH ×4 (03:17→23:55)
[2017-01-28] MEDS: HEPARIN SODIUM - SQ 10,000 UNITS/ML VIAL SQ SCH ×3 (05:00→21:16)
[2017-01-28] MEDS: ASPIRIN 325 MG TAB TUBE SCH (07:54)
[2017-01-28] MEDS: levETIRAcetam 500 MG/5 ML UDC TUBE SCH ×2 (07:54→21:16)
[2017-01-28] MEDS: DILTIAZEM HCL 30 MG TAB PEG SCH ×4 (07:55→21:16)
[2017-01-28] MEDS: LANSOPRAZOLE SOLUTAB 30 MG TAB NG SCH ×2 (07:55→21:15)
[2017-01-28] MEDS: ARTIFICIAL TEARS OPTH SOLN 15 ML BTL EACH EYE SCH ×2 (07:56→21:20)
[2017-01-28] MEDS: LACTULOSE SYRUP 20 GM/30 ML CUP PEG SCH (07:57)
[2017-01-28] MEDS: SODIUM CHLORIDE 0.65% NASAL SPRAY 45 ML BTL NASAL SCH ×2 (07:57→21:20)
[2017-01-28] MEDS: NYSTATIN 100,000 U/GM PWD 15 GM BTL TOPICAL SCH ×2 (07:58→21:17)
[2017-01-28] MEDS: BACITRACIN TOP OINT 15 GM TUBE TOP SCH ×2 (07:59→21:17)
--- NOTE | 2017-01-28 09:12 | HHI.PR ---
Subjective Remarks Follow-up pneumonia. Scant trach secretions. Family hesitant to discontinue continuous pulse oximetry and start O2 sat checks QID. He has been saturating adequately on trach collar. Also has been having loose stools. Discussed with RN Objective Vitals Vital Signs Date Time Temp Pulse Resp B/P Pulse Ox O2 Delivery O2 Flow Rate FiO2 01/28/17 08:00 99 Trach Collar 6.00 01/28/17 08:00 98.1 96 19 142/82 96 01/28/17 04:05 98.2 92 18 146/82 98 01/28/17 03:23 T-Piece 6.00 Humidified 01/28/17 00:00 86 01/28/17 00:00 98.0 86 22 135/77 99 01/27/17 22:00 91 01/27/17 20:00 86 01/27/17 20:00 97.8 86 22 119/67 98 01/27/17 20:00 97.8 86 23 121/70 96 01/27/17 19:41 97 T-piece 28 01/27/17 16:00 98.5 86 23 121/70 96 01/27/17 16:00 86 01/27/17 12:00 86 01/27/17 12:00 97.8 86 23 120/69 88 I/O 01/27/17 01/27/17 01/27/17 01/28/17 01/28/17 01/28/17 07:00 15:00 23:00 07:00 15:00 23:00 Intake Total 688 ml 681 ml 642 ml 525 ml 0 ml Output Total 850 ml 425 ml 550 ml 300 ml Balance -162 ml 256 ml 92 ml 225 ml 0 ml Intake Oral 0 ml 0 ml IV Total 238 ml Tube Feeding 300 ml 381 ml 442 ml 325 ml Tube Irrigant 300 ml 200 ml 200 ml Other 150 ml Output Urine Total 750 ml 200 ml 300 ml 300 ml Stool Total 100 ml 225 ml 250 ml Tube Feeding Residual Discard 0 ml # Bowel Movements 0 Result Diagram: 01/27/1741501/27/17415 Objective Remarks GENERAL: Appears comfortable. Awake , alert. No signs of dehydration SKIN: Warm and dry. Sacral ulcer with no signs of infection. Rectal tube in place HEAD: Normocephalic. EYES: No scleral icterus. No injection or drainage. NECK: Supple, trachea midline. No JVD. CARDIOVASCULAR: Regular rate and rhythm without murmurs, gallops, or rubs. RESPIRATORY: Breath sounds equal bilaterally. No accessory muscle use. GASTROINTESTINAL: Abdomen soft, non-tender, nondistended. PEG tube with no surrounding erythema. MUSCULOSKELETAL: No cyanosis, or edema. BACK: Nontender without obvious deformity. No CVA tenderness. Procedures 01/02/16 PEG placement 01/02/16 tracheostomy 07/22/2016 Wide excision of sacral skin wound, biopsy of the cavity lining and debridement. PEG removal and Gj tube placement 07/29/16 VAC changes- M-W-F 10/23/16, 11/18, 12/31- GJ tube replacement A/P Problem List: (1) CVA (cerebral vascular accident) ICD Code: I63.9 Status: Acute (2) A-fib ICD Code: I48.91 Status: Chronic (3) DM (diabetes mellitus) ICD Code: E11.9 Status: Chronic Assessment and Plan Neuro/Psych: //Initial hospitalization [place] and cerebellar CVA with Basilar artery thrombosis //Status post brain biopsy on December 13: Path report - acute infarct, no evidence of lymphoma //Depression Monitor neuro status, Off sedation. On Keppra 500mg BID - 750 twice a day home prior to arrival. On Paxil 20 by mouth daily for depression. On Ativan 0.5 mg every 4 hours when necessary anxiety. On acetaminophen with codeine for pain scale of 2-10. Pulm: //Vent dependent respiratory failure //Right upper lobe/right middle lobe pulmonary nodules - outpatient CT scan without contrast in 6 months to follow-up Continue with oxygen keep sat >92%. Trach changed to size #6 XLT on 01/09 Duo nebs every 6 hours SBT/TP trials as karlie. Leave on TP 10/02 as tolerated Pulm toilet, trach care 01/09 CTA chest: No PE, bilateral lower lobe infiltrates. 4 mm right upper lobe /5 mm right middle lobe nodule.. Pulm is following- Dr. Taylor CV: //History of paroxysmal atrial fibrillation currently in sinus tachycardia //Hypertension //Dyslipidemia Monitor HR and BP keep MAP>65mmHg. O Continue ASA 325mg daily, Cardizem 30mg QID Previously on sotalol 40 mg a night for paroxysmal fibrillation. Renal//FEN: Monitor renal function, Accurate I/O's electrolytes replacement per protocol. GI: //Mild protein calorie malnutrition //Gastroesophageal reflux disease Diarrhea on bowel regimen. Previously negative for C. difficile On Prevacid 30 mg Q12, on tube feeds( Glucerna 1.5 @ 45ml/hr) J-tube is currently unplugged. Discontinue bowel regimen including lactulose, MOM and senna. Check C. difficile with recent IV antibiotics. Start Lactinex. Repeat CBC and BMP in the morning ID: //Klebsiella/Pseudomonas/staph aureus HCAP //PSAE UTI S/p Cefepime. Monitor for signs of infections ( Fever, WBC) strep pneumonia and Legionella urinary Ag is negative C-diff PCR negative on 01/13 01/09 BC : Staph Epi, Urine cx: Pseudomonas, Sputum cx: Pseudomonas, kleb, Staph. (Pseudomonas in sputum is only intermediately sensitive to cefepime, clinically improving. Patient was pancultured on 01/19 ( Blood, sputum, urine) follow up on cxs Heme: //Microcytic anemia //Stage III a non-Hodgkin's lymphoma - s/p chemotherapy 2014 Monitor CBC No further treatment recommended per heme oncology at this time. Endo: //History of diabetes mellitus On SSI (low scale) for glycemic control On metformin 500 daily at home. Derm //Stage IV decubitus ulcers -Dressing changes daily. Reconsult wound care //GI prophylaxis with Prevacid 30 mg Q12 //DVT prophylaxis with SCD and Heparin SQ Discharge Planning Needs placement when arranged. [facility] has declined the patient Problem Qualifiers (1) CVA (cerebral vascular accident): (2) DM (diabetes mellitus): Qualified Code: E11.9 - Type 2 diabetes mellitus without complications Thomas Buck MD Jan 28, 2017 09:12
[2017-01-28] MEDS: LACTOBACILLUS ACIDOPHILUS 1 GM PACKET G-TUBE SCH ×2 (13:42→16:53)
[2017-01-28 14:44] LABS: C. DIFF EPI 027 PRESUMPTIVE NEGATIVE (NEGATIVE)
[2017-01-28] MEDS: SENNOSIDES SYRUP 8.8 MG/5 ML CUP PEG SCH (15:50)
[2017-01-28] MEDS: PARoxetine HCL SUSP 20 MG/10 ML UDC PEG SCH (18:41)
[2017-01-29] VITALS (8 sets, daily range): BP systolic 112–124; BP diastolic 73–85; PULSE 90–102; RESP 17–19; TEMP 97.4–99; O2SAT 93–98
[2017-01-29] MEDS: INSULIN NovoLIN REGULAR SUPPLEMENTAL SCALE SQ SCH ×4 (04:00→22:00)
[2017-01-29] MEDS: HEPARIN SODIUM - SQ 10,000 UNITS/ML VIAL SQ SCH ×3 (04:49→20:46)
[2017-01-29] MEDS: ACETIC ACID 0.25% SOLN 1000 ML IRR BTL IRRIGATION SCH ×3 (04:50→21:01)
[2017-01-29 05:42] LABS: AUTOMATED NEUTROPHIL # 3.5 TH/MM3 (1.8-7.7); BASOPHIL # 0.1 TH/MM3 (0-0.2); BASOPHIL % 1.3 % (0.0-2.0); EOSINOPHIL # 0.3 TH/MM3 (0-0.4); EOSINOPHIL % 5.5 % (0.0-4.0); HEMATOCRIT 34.1 % (39.0-51.0); HEMO FLAGS DIFF FINAL; LYMPH % 22.3 % (9.0-44.0); LYMPHOCYTE # 1.3 TH/MM3 (1.0-4.8); MEAN CELL VOLUME 72.7 FL (80.0-100.0); MEAN CORPUSCULAR HEMOGLOBIN 22.7 PG (27.0-34.0); MEAN CORPUSCULAR HGB CONC 31.2 % (32.0-36.0); MONO % 8.1 % (0.0-8.0); NEUT % 62.8 % (16.0-70.0); PLATELET COUNT 258 TH/MM3 (150-450); RED CELL DISTRIBUTION WIDTH 21.2 % (11.6-17.2); WHITE BLOOD COUNT 5.6 TH/MM3 (4.0-11.0)
[2017-01-29 06:08] LABS: BICARBONATE 26.3 MEQ/L (21.0-32.0); MAGNESIUM 1.8 MG/DL (1.5-2.5); POTASSIUM 4.2 MEQ/L (3.5-5.1)
[2017-01-29] MEDS: levETIRAcetam 500 MG/5 ML UDC TUBE SCH ×2 (07:58→20:46)
[2017-01-29] MEDS: LANSOPRAZOLE SOLUTAB 30 MG TAB NG SCH ×2 (07:59→20:48)
[2017-01-29] MEDS: LACTOBACILLUS ACIDOPHILUS 1 GM PACKET G-TUBE SCH ×3 (07:59→17:45)
[2017-01-29] MEDS: DILTIAZEM HCL 30 MG TAB PEG SCH ×4 (07:59→20:47)
[2017-01-29] MEDS: ASPIRIN 325 MG TAB TUBE SCH (08:01)
[2017-01-29] MEDS: SODIUM CHLORIDE 0.65% NASAL SPRAY 45 ML BTL NASAL SCH ×2 (08:11→20:52)
[2017-01-29] MEDS: LACTULOSE SYRUP 20 GM/30 ML CUP PEG SCH (08:11)
[2017-01-29] MEDS: ARTIFICIAL TEARS OPTH SOLN 15 ML BTL EACH EYE SCH ×2 (08:11→20:51)
[2017-01-29] MEDS: BACITRACIN TOP OINT 15 GM TUBE TOP SCH ×2 (08:11→21:01)
[2017-01-29] MEDS: NYSTATIN 100,000 U/GM PWD 15 GM BTL TOPICAL SCH ×2 (08:12→20:53)
--- NOTE | 2017-01-29 09:49 | HHI.PR ---
Subjective Remarks Follow-up diarrhea and clogged G tube. No BM today. G tube fixed by IR RN. Seen with mother. Discussed with RN Objective Vitals Vital Signs Date Time Temp Pulse Resp B/P Pulse Ox O2 Delivery O2 Flow Rate FiO2 01/29/17 08:00 97.7 96 18 124/79 96 01/29/17 00:00 98.7 90 18 116/73 93 01/28/17 21:15 Trach Collar 6.00 01/28/17 21:15 99 Trach Collar 6.00 01/28/17 20:00 97.8 87 19 123/71 99 01/28/17 16:00 97.7 95 20 128/79 98 01/28/17 12:00 97.2 94 18 137/80 97 I/O 01/28/17 01/28/17 01/28/17 01/29/17 01/29/17 01/29/17 07:00 15:00 23:00 07:00 15:00 23:00 Intake Total 525 ml 120 ml 312 ml 388 ml 0 ml Output Total 300 ml 700 ml 400 ml 650 ml Balance 225 ml -580 ml -88 ml -262 ml 0 ml Intake Oral 0 ml 120 ml 0 ml 0 ml 0 ml IV Total 0 ml Tube Feeding 325 ml 312 ml 388 ml Tube Irrigant 200 ml Output Urine Total 300 ml 700 ml 400 ml 650 ml # Bowel Movements 0 0 1 Result Diagram: 01/29/1751901/29/1720 Objective Remarks GENERAL: Appears comfortable. Awake , alert. No signs of dehydration SKIN: Warm and dry. Sacral ulcer with no signs of infection. Rectal tube in place HEAD: Normocephalic. EYES: No scleral icterus. No injection or drainage. NECK: Supple, trachea midline. No JVD. CARDIOVASCULAR: Regular rate and rhythm without murmurs, gallops, or rubs. RESPIRATORY: Breath sounds equal bilaterally. No accessory muscle use. GASTROINTESTINAL: Abdomen soft, non-tender, nondistended. PEG tube with no surrounding erythema. MUSCULOSKELETAL: No cyanosis, or edema. BACK: Nontender without obvious deformity. No CVA tenderness. Procedures 01/02/16 PEG placement 01/02/16 tracheostomy 07/22/2016 Wide excision of sacral skin wound, biopsy of the cavity lining and debridement. PEG removal and Gj tube placement 07/29/16 VAC changes- M-W-F 10/23/16, 11/18, 12/31- GJ tube replacement A/P Problem List: (1) CVA (cerebral vascular accident) ICD Code: I63.9 Status: Acute (2) A-fib ICD Code: I48.91 Status: Chronic (3) DM (diabetes mellitus) ICD Code: E11.9 Status: Chronic Assessment and Plan Neuro/Psych: //Initial hospitalization [place] and cerebellar CVA with Basilar artery thrombosis //Status post brain biopsy on December 13: Path report - acute infarct, no evidence of lymphoma //Depression Monitor neuro status, Off sedation. On Keppra 500mg BID - 750 twice a day home prior to arrival. On Paxil 20 by mouth daily for depression. On Ativan 0.5 mg every 4 hours when necessary anxiety. On acetaminophen with codeine for pain scale of 2-10. Pulm: //Vent dependent respiratory failure //Right upper lobe/right middle lobe pulmonary nodules - outpatient CT scan without contrast in 6 months to follow-up Continue with oxygen keep sat >92%. Trach changed to size #6 XLT on 01/09 Duo nebs every 6 hours SBT/TP trials as karlie. Leave on TP 10/02 as tolerated Pulm toilet, trach care 01/09 CTA chest: No PE, bilateral lower lobe infiltrates. 4 mm right upper lobe /5 mm right middle lobe nodule.. Pulm is following- Dr. Taylor CV: //History of paroxysmal atrial fibrillation currently in sinus tachycardia //Hypertension //Dyslipidemia Monitor HR and BP keep MAP>65mmHg. O Continue ASA 325mg daily, Cardizem 30mg QID Previously on sotalol 40 mg a night for paroxysmal fibrillation. Renal//FEN: Monitor renal function, Accurate I/O's electrolytes replacement per protocol. GI: //Mild protein calorie malnutrition //Gastroesophageal reflux disease Diarrhea on bowel regimen. Negative for C. difficile. Improved On Prevacid 30 mg Q12, on tube feeds( Glucerna 1.5 @ 45ml/hr) J-tube is currently unplugged. Continue Lactinex and Imodium. Repeat CBC and BMP unremarkable ID: //Klebsiella/Pseudomonas/staph aureus HCAP //PSAE UTI S/p Cefepime. Monitor for signs of infections ( Fever, WBC) strep pneumonia and Legionella urinary Ag is negative C-diff PCR negative on 01/13 01/09 BC : Staph Epi, Urine cx: Pseudomonas, Sputum cx: Pseudomonas, kleb, Staph. (Pseudomonas in sputum is only intermediately sensitive to cefepime, clinically improving. Patient was pancultured on 01/19 ( Blood, sputum, urine) follow up on cxs Heme: //Microcytic anemia //Stage III a non-Hodgkin's lymphoma - s/p chemotherapy 2014 Monitor CBC No further treatment recommended per heme oncology at this time. Endo: //History of diabetes mellitus On SSI (low scale) for glycemic control On metformin 500 daily at home. Derm //Stage IV decubitus ulcers -Dressing changes daily. Reconsult wound care //GI prophylaxis with Prevacid 30 mg Q12 //DVT prophylaxis with SCD and Heparin SQ Discharge Planning Needs placement when arranged. [facility] has declined the patient Problem Qualifiers (1) CVA (cerebral vascular accident): (2) DM (diabetes mellitus): Qualified Code: E11.9 - Type 2 diabetes mellitus without complications Thomas Buck MD Jan 29, 2017 09:49
[2017-01-29] MEDS: SENNOSIDES SYRUP 8.8 MG/5 ML CUP PEG SCH (16:00)
--- NOTE | 2017-01-29 16:02 | HHI.PR ---
Progress Notes/Response to Tx Progress Note Narrative No remarkable change in neuropsychological status. Cherri Cabrera PhD Jan 29, 2017 16:02
--- NOTE | 2017-01-29 18:33 | HHI.PR ---
Subjective Remarks ass OPENS EYES NO DISTRESS SAT 96% PULSE 82 Objective Vital Signs Date Time Temp Pulse Resp B/P Pulse Ox O2 Delivery O2 Flow Rate FiO2 01/29/17 17:26 96 T-piece 6.00 28 01/29/17 16:00 99.0 102 17 114/80 96 01/29/17 12:00 97.4 95 17 116/85 96 01/29/17 09:30 T-Piece 01/29/17 08:10 96 T-piece 4.00 28 01/29/17 08:00 97.7 96 18 124/79 96 01/29/17 00:00 98.7 90 18 116/73 93 01/28/17 21:15 Trach Collar 6.00 01/28/17 21:15 99 Trach Collar 6.00 01/28/17 20:00 97.8 87 19 123/71 99 I/O 01/28/17 01/28/17 01/28/17 01/29/17 01/29/17 01/29/17 07:00 15:00 23:00 07:00 15:00 23:00 Intake Total 525 ml 120 ml 312 ml 388 ml 612 ml Output Total 300 ml 700 ml 400 ml 650 ml 500 ml Balance 225 ml -580 ml -88 ml -262 ml 112 ml Intake Oral 0 ml 120 ml 0 ml 0 ml 0 ml IV Total 0 ml Tube Feeding 325 ml 312 ml 388 ml 612 ml Tube Irrigant 200 ml Output Urine Total 300 ml 700 ml 400 ml 650 ml 500 ml # Bowel Movements 0 0 1 1 Result Diagram: 01/29/17 0520 01/29/17 0520 Procedures 01/02/16 PEG placement 01/02/16 tracheostomy 07/22/2016 Wide excision of sacral skin wound, biopsy of the cavity lining and debridement. PEG tube replacement 07/29/16 Objective Remarks GENERAL: SKIN: Warm and dry. HEAD: Atraumatic. Normocephalic. EYES: Pupils equal and round. No scleral icterus. No injection or drainage. ENT: No nasal bleeding or discharge. Mucous membranes pink and moist. NECK: Trachea midline. No JVD. CARDIOVASCULAR: Regular rate and rhythm. RESPIRATORY: No accessory muscle use. Clear to auscultation. Breath sounds equal bilaterally. GASTROINTESTINAL: Abdomen soft, non-tender, nondistended. Hepatic and splenic margins not palpable. MUSCULOSKELETAL: Extremities without clubbing, cyanosis, or edema. No obvious deformities. NEUROLOGICAL: Awake and alert. No obvious cranial nerve deficits. Motor grossly within normal limits. Five out of 5 muscle strength in the arms and legs. Normal speech. PSYCHIATRIC: Appropriate mood and affect; insight and judgment normal. Laboratory Tests Test 01/05/17 01/06/17 08:35 08:41 Red Blood Count 4.43 MIL/MM3 (4.50-5.90) Hemoglobin 9.9 GM/DL (13.0-17.0) Hematocrit 32.0 % (39.0-51.0) Mean Corpuscular Volume 72.1 FL (80.0-100.0) Mean Corpuscular Hemoglobin 22.3 PG (27.0-34.0) Mean Corpuscular Hemoglobin 30.9 % Concent (32.0-36.0) Red Cell Distribution Width 19.9 % (11.6-17.2) Sodium Level 134 MEQ/L 133 MEQ/L (136-145) (136-145) Random Glucose 136 MG/DL 132 MG/DL (74-106) (74-106) Creatinine 0.59 MG/DL (0.60-1.30) GENERAL: SKIN: Warm and dry. HEAD: Atraumatic. Normocephalic. EYES: Pupils equal and round. No scleral icterus. No injection or drainage. ENT: No nasal bleeding or discharge. Mucous membranes pink and moist. NECK: Trachea midline. No JVD. TRACH. [place] CARDIOVASCULAR: Regular rate and rhythm. RESPIRATORY: No accessory muscle use. Clear to auscultation. Breath sounds equal bilaterally. GASTROINTESTINAL: Abdomen soft, non-tender, nondistended. Hepatic and splenic margins not palpable. MUSCULOSKELETAL: Extremities without clubbing, cyanosis, or edema. No obvious deformities. NEUROLOGICAL: Awake and alert. No obvious cranial nerve deficits. Motor grossly within normal limits. Five out of 5 muscle strength in the arms and legs. Normal speech. PSYCHIATRIC: Appropriate mood and affect; insight and judgment normal. Assessment and Plan Assessment and Plan impression respiratory failure CVA S/P TRACHEOSTOMY SEPSIS PLAN O2 NEEDED PULM. TOILET ANTIBIOTICS PER ID [place] Brandon Moy MD Jan 29, 2017 18:33
[2017-01-29] MEDS: PARoxetine HCL SUSP 20 MG/10 ML UDC PEG SCH (19:23)
[2017-01-30] VITALS (8 sets, daily range): BP systolic 106–128; BP diastolic 74–87; PULSE 97–110; RESP 18–20; TEMP 98–98.6; O2SAT 95–100
[2017-01-30] MEDS: INSULIN NovoLIN REGULAR SUPPLEMENTAL SCALE SQ SCH (06:00)
[2017-01-30] MEDS: HEPARIN SODIUM - SQ 10,000 UNITS/ML VIAL SQ SCH ×3 (06:20→21:09)
[2017-01-30] MEDS: ACETIC ACID 0.25% SOLN 1000 ML IRR BTL IRRIGATION SCH ×3 (06:22→21:31)
[2017-01-30] MEDS: BACITRACIN TOP OINT 15 GM TUBE TOP SCH ×2 (09:00→21:31)
[2017-01-30] MEDS: ARTIFICIAL TEARS OPTH SOLN 15 ML BTL EACH EYE SCH ×2 (09:18→21:09)
[2017-01-30] MEDS: ASPIRIN 325 MG TAB TUBE SCH (09:18)
[2017-01-30] MEDS: levETIRAcetam 500 MG/5 ML UDC TUBE SCH ×2 (09:18→21:08)
[2017-01-30] MEDS: LANSOPRAZOLE SOLUTAB 30 MG TAB NG SCH ×2 (09:18→21:08)
[2017-01-30] MEDS: DILTIAZEM HCL 30 MG TAB PEG SCH ×5 (09:18→21:08)
[2017-01-30] MEDS: SODIUM CHLORIDE 0.65% NASAL SPRAY 45 ML BTL NASAL SCH ×2 (09:19→21:09)
[2017-01-30] MEDS: NYSTATIN 100,000 U/GM PWD 15 GM BTL TOPICAL SCH ×2 (09:20→21:31)
[2017-01-30] MEDS: LACTOBACILLUS ACIDOPHILUS 1 GM PACKET G-TUBE SCH ×3 (09:27→18:00)
--- NOTE | 2017-01-30 09:51 | HHI.PR ---
Subjective Remarks Follow-up loose stools and hyperglycemia. 3 bowel movements yesterday but one formed BMs so far today. Fingerstick stable. Oxygen saturations stable on 35% FiO2. Discussed with the mother and nursing staff Objective Vitals Vital Signs Date Time Temp Pulse Resp B/P Pulse Ox O2 Delivery O2 Flow Rate FiO2 01/30/17 09:10 98 T-piece 28 01/30/17 07:54 98.3 110 18 128/87 95 01/29/17 23:58 97.9 90 18 120/73 98 01/29/17 20:00 98.0 94 19 112/74 96 01/29/17 17:26 96 T-piece 6.00 28 01/29/17 16:00 99.0 102 17 114/80 96 01/29/17 12:00 97.4 95 17 116/85 96 I/O 01/29/17 01/29/17 01/29/17 01/30/17 01/30/17 01/30/17 07:00 15:00 23:00 07:00 15:00 23:00 Intake Total 388 ml 612 ml 0 ml 0 ml 0 ml Output Total 650 ml 500 ml 800 ml 750 ml Balance -262 ml 112 ml -800 ml -750 ml 0 ml Intake Oral 0 ml 0 ml 0 ml 0 ml 0 ml IV Total 0 ml Tube Feeding 388 ml 612 ml Output Urine Total 650 ml 500 ml 800 ml 750 ml # Bowel Movements 1 1 1 1 Result Diagram: 01/29/1751901/29/17519 Objective Remarks GENERAL: Appears comfortable. Awake , alert. No signs of dehydration SKIN: Warm and dry. Sacral ulcer with no signs of infection. HEAD: Normocephalic. EYES: No scleral icterus. No injection or drainage. NECK: Supple, trachea midline. No JVD. CARDIOVASCULAR: Regular rate and rhythm without murmurs, gallops, or rubs. RESPIRATORY: Breath sounds equal bilaterally. No accessory muscle use. GASTROINTESTINAL: Abdomen soft, non-tender, nondistended. PEG tube with no surrounding erythema. MUSCULOSKELETAL: No cyanosis, or edema. BACK: Nontender without obvious deformity. No CVA tenderness. Procedures 01/02/16 PEG placement 01/02/16 tracheostomy 07/22/2016 Wide excision of sacral skin wound, biopsy of the cavity lining and debridement. PEG removal and Gj tube placement 07/29/16 VAC changes- M-W-F 10/23/16, 11/18, 12/31- GJ tube replacement A/P Problem List: (1) CVA (cerebral vascular accident) ICD Code: I63.9 Status: Acute (2) A-fib ICD Code: I48.91 Status: Chronic (3) DM (diabetes mellitus) ICD Code: E11.9 Status: Chronic Assessment and Plan Neuro/Psych: //Initial hospitalization Pont[place] and cerebellar CVA with Basilar artery thrombosis //Status post brain biopsy on December 13: Path report - acute infarct, no evidence of lymphoma //Depression Monitor neuro status, Off sedation. On Keppra 500mg BID - 750 twice a day home prior to arrival. On Paxil 20 by mouth daily for depression. On Ativan 0.5 mg every 4 hours when necessary anxiety. On acetaminophen with codeine for pain scale of 2-10. Pulm: //Vent dependent respiratory failure //Right upper lobe/right middle lobe pulmonary nodules - outpatient CT scan without contrast in 6 months to follow-up Continue with oxygen keep sat >92%. Trach changed to size #6 XLT on 01/09 Duo nebs every 6 hours SBT/TP trials as karlie. Leave on TP 10/02 as tolerated Pulm toilet, trach care 01/09 CTA chest: No PE, bilateral lower lobe infiltrates. 4 mm right upper lobe /5 mm right middle lobe nodule.. Pulm is following- Dr. Taylor CV: //History of paroxysmal atrial fibrillation currently in sinus tachycardia //Hypertension //Dyslipidemia Monitor HR and BP keep MAP>65mmHg. O Continue ASA 325mg daily, Cardizem 30mg QID Previously on sotalol 40 mg a night for paroxysmal fibrillation. Renal//FEN: Monitor renal function, Accurate I/O's electrolytes replacement per protocol. GI: //Mild protein calorie malnutrition //Gastroesophageal reflux disease Diarrhea on bowel regimen. Negative for C. difficile. Improved On Prevacid 30 mg Q12, on tube feeds(Jevity 1.5 at 55 ml/hr) J-tube is currently unplugged. Continue Lactinex and Imodium. Repeat CBC and BMP unremarkable ID: //Klebsiella/Pseudomonas/staph aureus HCAP //PSAE UTI S/p Cefepime. Monitor for signs of infections ( Fever, WBC) strep pneumonia and Legionella urinary Ag is negative C-diff PCR negative on 01/13 01/09 BC : Staph Epi, Urine cx: Pseudomonas, Sputum cx: Pseudomonas, kleb, Staph. (Pseudomonas in sputum is only intermediately sensitive to cefepime, clinically improving. Patient was pancultured on 01/19 ( Blood, sputum, urine) follow up on cxs Heme: //Microcytic anemia //Stage III a non-Hodgkin's lymphoma - s/p chemotherapy 2014 Monitor CBC No further treatment recommended per heme oncology at this time. Endo: //History of diabetes mellitus. A1c 7 year ago. Fingersticks have been stable Repeat A1c next lab work. Discontinue Accu-Cheks On metformin 500 daily at home. Derm //Stage IV decubitus ulcers -Dressing changes daily. Reconsult wound care //GI prophylaxis with Prevacid 30 mg Q12 //DVT prophylaxis with SCD and Heparin SQ Discharge Planning Needs placement when arranged. [facility] has declined the patient Problem Qualifiers (1) CVA (cerebral vascular accident): (2) DM (diabetes mellitus): Qualified Code: E11.9 - Type 2 diabetes mellitus without complications Thomas Buck MD Jan 30, 2017 09:51
[2017-01-30] MEDS: RESP: LEVALBUTEROL HYDROCHLORIDE 0.63 MG/3 ML NEB (PRN) NEB (11:25)
[2017-01-30] MEDS: SENNOSIDES SYRUP 8.8 MG/5 ML CUP PEG SCH (14:13)
--- NOTE | 2017-01-30 16:12 | HHI.PR ---
Subjective Remarks ass OPENS EYES NO DISTRESS SAT 96% PULSE 82 Objective Vital Signs Date Time Temp Pulse Resp B/P Pulse Ox O2 Delivery O2 Flow Rate FiO2 01/30/17 14:00 116/87 01/30/17 12:00 98.5 100 19 106/74 96 01/30/17 09:10 98 T-piece 28 01/30/17 07:54 98.3 110 18 128/87 95 01/29/17 23:58 97.9 90 18 120/73 98 01/29/17 20:00 98.0 94 19 112/74 96 01/29/17 17:26 96 T-piece 6.00 28 I/O 01/29/17 01/29/17 01/29/17 01/30/17 01/30/17 01/30/17 07:00 15:00 23:00 07:00 15:00 23:00 Intake Total 388 ml 612 ml 0 ml 0 ml 0 ml Output Total 650 ml 500 ml 800 ml 750 ml 575 ml Balance -262 ml 112 ml -800 ml -750 ml -575 ml Intake Oral 0 ml 0 ml 0 ml 0 ml 0 ml IV Total 0 ml Tube Feeding 388 ml 612 ml Output Urine Total 650 ml 500 ml 800 ml 750 ml 575 ml # Bowel Movements 1 1 1 1 1 Result Diagram: 01/29/17 0520 01/29/17 0520 Procedures 01/02/16 PEG placement 01/02/16 tracheostomy 07/22/2016 Wide excision of sacral skin wound, biopsy of the cavity lining and debridement. PEG tube replacement 07/29/16 Objective Remarks GENERAL: SKIN: Warm and dry. HEAD: Atraumatic. Normocephalic. EYES: Pupils equal and round. No scleral icterus. No injection or drainage. ENT: No nasal bleeding or discharge. Mucous membranes pink and moist. NECK: Trachea midline. No JVD. CARDIOVASCULAR: Regular rate and rhythm. RESPIRATORY: No accessory muscle use. Clear to auscultation. Breath sounds equal bilaterally. GASTROINTESTINAL: Abdomen soft, non-tender, nondistended. Hepatic and splenic margins not palpable. MUSCULOSKELETAL: Extremities without clubbing, cyanosis, or edema. No obvious deformities. NEUROLOGICAL: Awake and alert. No obvious cranial nerve deficits. Motor grossly within normal limits. Five out of 5 muscle strength in the arms and legs. Normal speech. PSYCHIATRIC: Appropriate mood and affect; insight and judgment normal. Laboratory Tests Test 01/05/17 01/06/17 08:35 08:41 Red Blood Count 4.43 MIL/MM3 (4.50-5.90) Hemoglobin 9.9 GM/DL (13.0-17.0) Hematocrit 32.0 % (39.0-51.0) Mean Corpuscular Volume 72.1 FL (80.0-100.0) Mean Corpuscular Hemoglobin 22.3 PG (27.0-34.0) Mean Corpuscular Hemoglobin 30.9 % Concent (32.0-36.0) Red Cell Distribution Width 19.9 % (11.6-17.2) Sodium Level 134 MEQ/L 133 MEQ/L (136-145) (136-145) Random Glucose 136 MG/DL 132 MG/DL (74-106) (74-106) Creatinine 0.59 MG/DL (0.60-1.30) GENERAL: SKIN: Warm and dry. HEAD: Atraumatic. Normocephalic. EYES: Pupils equal and round. No scleral icterus. No injection or drainage. ENT: No nasal bleeding or discharge. Mucous membranes pink and moist. NECK: Trachea midline. No JVD. TRACH. [place] CARDIOVASCULAR: Regular rate and rhythm. RESPIRATORY: No accessory muscle use. Clear to auscultation. Breath sounds equal bilaterally. GASTROINTESTINAL: Abdomen soft, non-tender, nondistended. Hepatic and splenic margins not palpable. MUSCULOSKELETAL: Extremities without clubbing, cyanosis, or edema. No obvious deformities. NEUROLOGICAL: Awake and alert. No obvious cranial nerve deficits. Motor grossly within normal limits. Five out of 5 muscle strength in the arms and legs. Normal speech. PSYCHIATRIC: Appropriate mood and affect; insight and judgment normal. Assessment and Plan Assessment and Plan impression respiratory failure CVA S/P TRACHEOSTOMY SEPSIS PLAN O2 NEEDED PULM. TOILET ANTIBIOTICS PER ID [place] poor Brandon Taylor MD Jan 30, 2017 16:11
[2017-01-30] MEDS: PARoxetine HCL SUSP 20 MG/10 ML UDC PEG SCH (18:10)
[2017-01-31] VITALS (7 sets, daily range): BP systolic 107–129; BP diastolic 69–81; PULSE 87–95; RESP 16–20; TEMP 97.6–98.4; O2SAT 94–100
[2017-01-31] MEDS: HEPARIN SODIUM - SQ 10,000 UNITS/ML VIAL SQ SCH ×3 (06:21→21:15)
[2017-01-31] MEDS: ACETIC ACID 0.25% SOLN 1000 ML IRR BTL IRRIGATION SCH ×3 (06:21→21:16)
--- NOTE | 2017-01-31 07:58 | HHI.PR ---
Subjective Remarks Follow-up chronic respiratory failure and diarrhea. Stable on trach collar. No BM today. Discussed with RN Objective Vitals Vital Signs Date Time Temp Pulse Resp B/P Pulse Ox O2 Delivery O2 Flow Rate FiO2 01/31/17 00:00 98.0 89 20 129/81 100 01/30/17 21:00 Trach Collar 35 01/30/17 20:00 98.6 99 20 113/77 96 01/30/17 18:15 100 T-piece 6.00 35 01/30/17 18:12 119/84 01/30/17 16:00 98.0 97 18 112/75 100 01/30/17 14:00 116/87 01/30/17 12:00 98.5 100 19 106/74 96 01/30/17 09:18 Trach Collar 35 01/30/17 09:10 98 T-piece 28 I/O 01/30/17 01/30/17 01/30/17 01/31/17 01/31/17 01/31/17 07:00 15:00 23:00 07:00 15:00 23:00 Intake Total 0 ml 834 ml 531 ml 947 ml Output Total 750 ml 575 ml Balance -750 ml 259 ml 531 ml 947 ml Intake Oral 0 ml 0 ml IV Total 834 ml Tube Feeding 351 ml 587 ml Other 180 ml 360 ml Output Urine Total 750 ml 575 ml # Bowel Movements 1 1 Result Diagram: 01/29/1751901/29/17 0520 Objective Remarks GENERAL: Appears comfortable. Awake , alert. No signs of dehydration SKIN: Warm and dry. Sacral ulcer with no signs of infection. HEAD: Normocephalic. EYES: No scleral icterus. No injection or drainage. NECK: Supple, trachea midline. No JVD. CARDIOVASCULAR: Regular rate and rhythm without murmurs, gallops, or rubs. RESPIRATORY: Breath sounds equal bilaterally. No accessory muscle use. GASTROINTESTINAL: Abdomen soft, non-tender, nondistended. PEG tube with no surrounding erythema. MUSCULOSKELETAL: No cyanosis, or edema. BACK: Nontender without obvious deformity. No CVA tenderness. Procedures 01/02/16 PEG placement 01/02/16 tracheostomy 07/22/2016 Wide excision of sacral skin wound, biopsy of the cavity lining and debridement. PEG removal and Gj tube placement 07/29/16 VAC changes- M-W-F 10/23/16, 11/18, 12/31- GJ tube replacement A/P Problem List: (1) CVA (cerebral vascular accident) ICD Code: I63.9 Status: Acute (2) A-fib ICD Code: I48.91 Status: Chronic (3) DM (diabetes mellitus) ICD Code: E11.9 Status: Chronic Assessment and Plan Neuro/Psych: //Initial hospitalization [place] and cerebellar CVA with Basilar artery thrombosis //Status post brain biopsy on December 13: Path report - acute infarct, no evidence of lymphoma //Depression Monitor neuro status, Off sedation. On Keppra 500mg BID - 750 twice a day home prior to arrival. On Paxil 20 by mouth daily for depression. On Ativan 0.5 mg every 4 hours when necessary anxiety. On acetaminophen with codeine for pain scale of 2-10. Pulm: //Vent dependent respiratory failure //Right upper lobe/right middle lobe pulmonary nodules - outpatient CT scan without contrast in 6 months to follow-up Continue with oxygen keep sat >92%. Trach changed to size #6 XLT on 01/09 Duo nebs every 6 hours SBT/TP trials as karlie. Leave on TP 10/02 as tolerated Pulm toilet, trach care 01/09 CTA chest: No PE, bilateral lower lobe infiltrates. 4 mm right upper lobe /5 mm right middle lobe nodule.. Pulm is following- Dr. Taylor CV: //History of paroxysmal atrial fibrillation currently in sinus tachycardia //Hypertension //Dyslipidemia Monitor HR and BP keep MAP>65mmHg. O Continue ASA 325mg daily, Cardizem 30mg QID Previously on sotalol 40 mg a night for paroxysmal fibrillation. Renal//FEN: Monitor renal function, Accurate I/O's electrolytes replacement per protocol. GI: //Mild protein calorie malnutrition //Gastroesophageal reflux disease Diarrhea on bowel regimen. Negative for C. difficile. Improved On Prevacid 30 mg Q12, on tube feeds(Jevity 1.5 at 55 ml/hr) J-tube is currently unplugged. Continue Lactinex and Imodium. Repeat CBC and BMP unremarkable ID: //Klebsiella/Pseudomonas/staph aureus HCAP //PSAE UTI S/p Cefepime. Monitor for signs of infections ( Fever, WBC) strep pneumonia and Legionella urinary Ag is negative C-diff PCR negative on 01/13 01/09 BC : Staph Epi, Urine cx: Pseudomonas, Sputum cx: Pseudomonas, kleb, Staph. (Pseudomonas in sputum is only intermediately sensitive to cefepime, clinically improving. Patient was pancultured on 01/19 ( Blood, sputum, urine) follow up on cxs Heme: //Microcytic anemia //Stage III a non-Hodgkin's lymphoma - s/p chemotherapy 2014 Monitor CBC No further treatment recommended per heme oncology at this time. Endo: //History of diabetes mellitus. A1c 7 year ago. Fingersticks have been stable Repeat A1c next lab work. Discontinue Accu-Cheks On metformin 500 daily at home. Derm //Stage IV decubitus ulcers -Dressing changes daily. Reconsult wound care //GI prophylaxis with Prevacid 30 mg Q12 //DVT prophylaxis with SCD and Heparin SQ Discharge Planning Needs placement when arranged. [facility] has declined the patient Problem Qualifiers (1) CVA (cerebral vascular accident): (2) DM (diabetes mellitus): Qualified Code: E11.9 - Type 2 diabetes mellitus without complications Thomas Buck MD Jan 31, 2017 07:58
[2017-01-31] MEDS: ARTIFICIAL TEARS OPTH SOLN 15 ML BTL EACH EYE SCH ×2 (08:06→21:16)
[2017-01-31] MEDS: NYSTATIN 100,000 U/GM PWD 15 GM BTL TOPICAL SCH ×2 (08:08→21:17)
[2017-01-31] MEDS: DILTIAZEM HCL 30 MG TAB PEG SCH ×5 (08:10→21:14)
[2017-01-31] MEDS: ASPIRIN 325 MG TAB TUBE SCH (08:10)
[2017-01-31] MEDS: LACTOBACILLUS ACIDOPHILUS 1 GM PACKET G-TUBE SCH ×3 (08:10→17:57)
[2017-01-31] MEDS: BACITRACIN TOP OINT 15 GM TUBE TOP SCH ×2 (08:10→21:17)
[2017-01-31] MEDS: levETIRAcetam 500 MG/5 ML UDC TUBE SCH ×2 (08:10→21:14)
[2017-01-31] MEDS: LANSOPRAZOLE SOLUTAB 30 MG TAB NG SCH ×2 (08:10→21:15)
[2017-01-31] MEDS: SODIUM CHLORIDE 0.65% NASAL SPRAY 45 ML BTL NASAL SCH ×2 (08:11→21:16)
[2017-01-31] MEDS: MAGNESIUM HYDROXIDE SUSP 30 ML CUP PEG PRN (14:11)
--- NOTE | 2017-01-31 15:43 | HHI.PR ---
Subjective Remarks ass OPENS EYES NO DISTRESS SAT 96% PULSE 82 Objective Vital Signs Date Time Temp Pulse Resp B/P Pulse Ox O2 Delivery O2 Flow Rate FiO2 01/31/17 12:00 97.7 92 16 110/80 99 01/31/17 11:59 95 T-piece 7.00 35 01/31/17 08:00 97.6 95 18 121/81 94 01/31/17 08:00 98 Trach Collar 35 01/31/17 00:00 98.0 89 20 129/81 100 01/30/17 21:00 Trach Collar 35 01/30/17 20:00 98.6 99 20 113/77 96 01/30/17 18:15 100 T-piece 6.00 35 01/30/17 18:12 119/84 01/30/17 16:00 98.0 97 18 112/75 100 I/O 01/30/17 01/30/17 01/30/17 01/31/17 01/31/17 01/31/17 06:59 14:59 22:59 06:59 14:59 22:59 Intake Total 0 ml 834 ml 531 ml 947 ml 765 ml Output Total 1350 ml 575 ml Balance -1350 ml 259 ml 531 ml 947 ml 765 ml Intake Oral 0 ml 0 ml IV Total 834 ml Tube Feeding 351 ml 587 ml 405 ml Other 180 ml 360 ml 360 ml Output Urine Total 1350 ml 575 ml # Bowel Movements 1 1 Result Diagram: 01/29/17 0520 01/29/17 0520 Procedures 01/02/16 PEG placement 01/02/16 tracheostomy 07/22/2016 Wide excision of sacral skin wound, biopsy of the cavity lining and debridement. PEG tube replacement 07/29/16 Objective Remarks GENERAL: SKIN: Warm and dry. HEAD: Atraumatic. Normocephalic. EYES: Pupils equal and round. No scleral icterus. No injection or drainage. ENT: No nasal bleeding or discharge. Mucous membranes pink and moist. NECK: Trachea midline. No JVD. CARDIOVASCULAR: Regular rate and rhythm. RESPIRATORY: No accessory muscle use. Clear to auscultation. Breath sounds equal bilaterally. GASTROINTESTINAL: Abdomen soft, non-tender, nondistended. Hepatic and splenic margins not palpable. MUSCULOSKELETAL: Extremities without clubbing, cyanosis, or edema. No obvious deformities. NEUROLOGICAL: Awake and alert. No obvious cranial nerve deficits. Motor grossly within normal limits. Five out of 5 muscle strength in the arms and legs. Normal speech. PSYCHIATRIC: Appropriate mood and affect; insight and judgment normal. Laboratory Tests Test 01/05/17 01/06/17 08:35 08:41 Red Blood Count 4.43 MIL/MM3 (4.50-5.90) Hemoglobin 9.9 GM/DL (13.0-17.0) Hematocrit 32.0 % (39.0-51.0) Mean Corpuscular Volume 72.1 FL (80.0-100.0) Mean Corpuscular Hemoglobin 22.3 PG (27.0-34.0) Mean Corpuscular Hemoglobin 30.9 % Concent (32.0-36.0) Red Cell Distribution Width 19.9 % (11.6-17.2) Sodium Level 134 MEQ/L 133 MEQ/L (136-145) (136-145) Random Glucose 136 MG/DL 132 MG/DL (74-106) (74-106) Creatinine 0.59 MG/DL (0.60-1.30) GENERAL: SKIN: Warm and dry. HEAD: Atraumatic. Normocephalic. EYES: Pupils equal and round. No scleral icterus. No injection or drainage. ENT: No nasal bleeding or discharge. Mucous membranes pink and moist. NECK: Trachea midline. No JVD. TRACH. [place] CARDIOVASCULAR: Regular rate and rhythm. RESPIRATORY: No accessory muscle use. Clear to auscultation. Breath sounds equal bilaterally. GASTROINTESTINAL: Abdomen soft, non-tender, nondistended. Hepatic and splenic margins not palpable. MUSCULOSKELETAL: Extremities without clubbing, cyanosis, or edema. No obvious deformities. NEUROLOGICAL: Awake and alert. No obvious cranial nerve deficits. Motor grossly within normal limits. Five out of 5 muscle strength in the arms and legs. Normal speech. PSYCHIATRIC: Appropriate mood and affect; insight and judgment normal. Assessment and Plan Assessment and Plan impression respiratory failure CVA S/P TRACHEOSTOMY SEPSIS PLAN O2 NEEDED PULM. TOILET ANTIBIOTICS PER ID [place] Brandon Moy MD Jan 31, 2017 15:43
[2017-01-31 16:13] LABS: HEMOGLOBIN A1b 1.7 %; HEMOGLOBIN Ao 85.4 %; HEMOGLOBIN LA1C 2.2 %
[2017-01-31] MEDS: SENNOSIDES SYRUP 8.8 MG/5 ML CUP PEG SCH (16:32)
[2017-01-31] MEDS: PARoxetine HCL SUSP 20 MG/10 ML UDC PEG SCH (18:27)
[2017-02-01] VITALS (7 sets, daily range): BP systolic 95–127; BP diastolic 71–83; PULSE 89–100; RESP 20–24; TEMP 98.2–98.9; O2SAT 95–100
[2017-02-01] MEDS: HEPARIN SODIUM - SQ 10,000 UNITS/ML VIAL SQ SCH ×3 (05:43→20:50)
[2017-02-01] MEDS: ACETIC ACID 0.25% SOLN 1000 ML IRR BTL IRRIGATION SCH ×3 (05:48→21:01)
[2017-02-01] MEDS: ARTIFICIAL TEARS OPTH SOLN 15 ML BTL EACH EYE SCH ×2 (07:25→20:51)
[2017-02-01] MEDS: SODIUM CHLORIDE 0.65% NASAL SPRAY 45 ML BTL NASAL SCH ×2 (07:25→20:51)
[2017-02-01] MEDS: BACITRACIN TOP OINT 15 GM TUBE TOP SCH ×2 (07:26→20:51)
[2017-02-01] MEDS: NYSTATIN 100,000 U/GM PWD 15 GM BTL TOPICAL SCH ×2 (07:27→20:50)
[2017-02-01] MEDS: DILTIAZEM HCL 30 MG TAB PEG SCH ×4 (07:28→20:50)
[2017-02-01] MEDS: ASPIRIN 325 MG TAB TUBE SCH (07:28)
[2017-02-01] MEDS: LANSOPRAZOLE SOLUTAB 30 MG TAB NG SCH ×2 (07:29→20:50)
[2017-02-01] MEDS: LACTOBACILLUS ACIDOPHILUS 1 GM PACKET G-TUBE SCH ×3 (07:29→17:45)
[2017-02-01] MEDS: levETIRAcetam 500 MG/5 ML UDC TUBE SCH ×2 (07:29→20:50)
--- NOTE | 2017-02-01 09:08 | HHI.PR ---
Subjective Remarks Follow-up respiratory failure, diarrhea and diabetes mellitus. Stable on 35% FIO2. Semiformed stool. Repeat A1c 5.5. Seen with mother. Discussed with RN, no acute change noted Objective Vitals Vital Signs Date Time Temp Pulse Resp B/P Pulse Ox O2 Delivery O2 Flow Rate FiO2 02/01/17 00:00 98.2 95 20 127/79 95 01/31/17 21:15 99 Trach Collar 35 01/31/17 20:00 98.4 90 18 116/75 100 01/31/17 18:35 97 T-piece 6.00 35 01/31/17 16:00 97.8 87 16 107/69 97 01/31/17 12:00 97.7 92 16 110/80 99 01/31/17 11:59 95 T-piece 7.00 35 I/O 01/31/17 01/31/17 01/31/17 02/01/17 02/01/17 02/01/17 06:59 14:59 22:59 06:59 14:59 22:59 Intake Total 947 ml 765 ml 886 ml 693 ml Output Total 350 ml 1450 ml Balance 947 ml 415 ml 886 ml -757 ml Intake Oral 0 ml Tube Feeding 587 ml 405 ml 406 ml 513 ml Other 360 ml 360 ml 480 ml 180 ml Output Urine Total 350 ml 1450 ml # Bowel Movements 0 2 Result Diagram: 01/29/17 0520 01/29/17 0520 Imaging Last Impressions Tube Change 01/24/17 0000 Signed Impressions: Service Date/Time: Tuesday, January 24, 2017 17:10 - CONCLUSION: Uncomplicated gastrojejunostomy tube exchange as above. Scott Griffin MD Chest X-Ray 01/20/17 0600 Signed Impressions: Service Date/Time: Friday, January 20, 2017 04:22 - CONCLUSION: 1. Bibasilar patchy densities, unchanged. 2. Tracheostomy tube unchanged. Mikie Vargas MD Head CT 01/09/17 0000 Signed Impressions: Service Date/Time: December 17:43 - CONCLUSION: 1. No acute hemorrhage or mass effect. 2. 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 3. Atrophy. Gerald Mukherjee MD CT Angiography 01/09/17 0000 Signed Impressions: Service Date/Time: December 17:49 - CONCLUSION: 1. No evidence of pulmonary emboli. 2. Patchy consolidation in both posterior lower lobes right greater than left. This could represent pneumonia. 3. 2 small noncalcified pulmonary nodules which are nonspecific finding. Short-term CT followup is recommended beginning in 6 months with a noncontrast outpatient CT. Gerald Mukherjee MD Tube Check 12/04/16 0000 Signed Impressions: Service Date/Time: Sunday, December 04, 2016 17:58 - CONCLUSION: Uncomplicated tube injection as above. the tube is in good position and functions normally. Moises Ramírez MD Abdomen X-Ray 08/31/16 0000 Signed Impressions: Service Date/Time: Wednesday, August 31, 2016 16:36 - CONCLUSION: 1. No acute findings. Mild constipation. Durga Dotson MD Abdomen/Pelvis CT 04/12/16 0000 Signed Impressions: Service Date/Time: Tuesday, April 12, 2016 20:52 - CONCLUSION: 1. 6.4 cm necrotic mass or abscess in the soft tissues posteriorly just below the sacrum associated with some bony destructive change of the lower most sacrum and coccyx with inflammatory changes extending into the ischiorectal fossa and into the presacral retroperitoneum predominantly on the left side. There is associated fairly marked mural thickening of the anal verge and rectum. 2. There is gastrostomy and Arevalo catheter present. Stable abdominal aortic aneurysm. Druga Dotson MD Head Magnetic Resonance Angiography 03/05/16 0000 Signed Impressions: Service Date/Time: Saturday, March 05, 2016 09:26 - CONCLUSION: Persistent high-grade subtotal occlusive stenotic lesions in the distal right vertebral artery and proximal basilar artery with significant improvement in flow and recanalization following initial presentation of thrombosis. Stable interstitial circulation without significant stenosis. 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 There is decreasing restricted diffusion and increasing loss of volume characteristic of a subacute to chronic infarct. No evidence of acute infarct, acute hemorrhage mass or edema. Ernesto Kulkarni MD Neck Magnetic Resonance Angiography 12/22/15 [id number] Signed Impressions: Service Date/Time: Tuesday, December 22, 2015 09:22 - CONCLUSION: Variant origin of the left vertebral artery from the aortic arch. No evidence of carotid stenosis. Glen Zamora MD Head/Brain Mag Res Venography 12/22/15 0000 Signed Impressions: Service Date/Time: Tuesday, December 22, 2015 09:22 - CONCLUSION: Normal MRV. Jonel Jones Jr., MD Objective Remarks GENERAL: Appears comfortable. Awake , alert. No signs of dehydration SKIN: Warm and dry. Sacral ulcer with no signs of infection. HEAD: Normocephalic. EYES: No scleral icterus. No injection or drainage. NECK: Supple, trachea midline. No JVD. CARDIOVASCULAR: Regular rate and rhythm without murmurs, gallops, or rubs. RESPIRATORY: Breath sounds equal bilaterally. No accessory muscle use. GASTROINTESTINAL: Abdomen soft, non-tender, nondistended. PEG tube with no surrounding erythema. MUSCULOSKELETAL: No cyanosis, or edema. BACK: Nontender without obvious deformity. No CVA tenderness. Procedures 01/02/16 PEG placement 01/02/16 tracheostomy 07/22/2016 Wide excision of sacral skin wound, biopsy of the cavity lining and debridement. PEG removal and Gj tube placement 07/29/16 VAC changes- M-W-F 10/23/16, 11/18, 12/31- GJ tube replacement A/P Problem List: (1) CVA (cerebral vascular accident) ICD Code: I63.9 Status: Acute (2) A-fib ICD Code: I48.91 Status: Chronic (3) DM (diabetes mellitus) ICD Code: E11.9 Status: Chronic Assessment and Plan Neuro/Psych: //Initial hospitalization [place] and cerebellar CVA with Basilar artery thrombosis //Status post brain biopsy on December 13: Path report - acute infarct, no evidence of lymphoma //Depression Monitor neuro status, Off sedation. On Keppra 500mg BID - 750 twice a day home prior to arrival. On Paxil 20 by mouth daily for depression. On Ativan 0.5 mg every 4 hours when necessary anxiety. On acetaminophen with codeine for pain scale of 2-10. Pulm: //Vent dependent respiratory failure //Right upper lobe/right middle lobe pulmonary nodules - outpatient CT scan without contrast in 6 months to follow-up Continue with oxygen keep sat >92%. Trach changed to size #6 XLT on 01/09 Duo nebs every 6 hours SBT/TP trials as karlie. Leave on TP 10/02 as tolerated Pulm toilet, trach care 01/09 CTA chest: No PE, bilateral lower lobe infiltrates. 4 mm right upper lobe /5 mm right middle lobe nodule.. Pulm is following- Dr. Taylor CV: //History of paroxysmal atrial fibrillation currently in sinus tachycardia //Hypertension //Dyslipidemia Monitor HR and BP keep MAP>65mmHg. O Continue ASA 325mg daily, Cardizem 30mg QID Previously on sotalol 40 mg a night for paroxysmal fibrillation. Renal//FEN: Monitor renal function, Accurate I/O's electrolytes replacement per protocol. GI: //Mild protein calorie malnutrition //Gastroesophageal reflux disease Diarrhea on bowel regimen. Negative for C. difficile. Improved On Prevacid 30 mg Q12, on tube feeds(Jevity 1.5 at 55 ml/hr) J-tube is currently unplugged. Continue Lactinex and Imodium. Repeat CBC and BMP unremarkable ID: //Klebsiella/Pseudomonas/staph aureus HCAP //PSAE UTI S/p Cefepime. Monitor for signs of infections ( Fever, WBC) strep pneumonia and Legionella urinary Ag is negative C-diff PCR negative on 01/13 01/09 BC : Staph Epi, Urine cx: Pseudomonas, Sputum cx: Pseudomonas, kleb, Staph. (Pseudomonas in sputum is only intermediately sensitive to cefepime, clinically improving. Patient was pancultured on 01/19 ( Blood, sputum, urine) follow up on cxs Heme: //Microcytic anemia //Stage III a non-Hodgkin's lymphoma - s/p chemotherapy 2014 Monitor CBC No further treatment recommended per heme oncology at this time. Endo: //History of diabetes mellitus. A1c 5.5. Fingersticks have been stable Discontinue Accu-Cheks On metformin 500 daily at home. Patient not on meds Derm //Stage IV decubitus ulcers -Dressing changes daily. Reconsult wound care //GI prophylaxis with Prevacid 30 mg Q12 //DVT prophylaxis with SCD and Heparin SQ Discharge Planning Needs placement when arranged. [facility] has declined the patient Problem Qualifiers (1) CVA (cerebral vascular accident): (2) DM (diabetes mellitus): Qualified Code: E11.9 - Type 2 diabetes mellitus without complications Thomas Buck MD Feb 01, 2017 09:08
--- NOTE | 2017-02-01 15:59 | HHI.PR ---
Subjective Remarks ass OPENS EYES NO DISTRESS SAT 96% PULSE 82 Objective Vital Signs Date Time Temp Pulse Resp B/P Pulse Ox O2 Delivery O2 Flow Rate FiO2 02/01/17 12:00 98.3 89 24 110/76 98 02/01/17 08:00 99 Trach Collar 7.00 35 02/01/17 08:00 98.3 100 24 123/83 99 02/01/17 00:00 98.2 95 20 127/79 95 01/31/17 21:15 99 Trach Collar 35 01/31/17 20:00 98.4 90 18 116/75 100 01/31/17 18:35 97 T-piece 6.00 35 01/31/17 16:00 97.8 87 16 107/69 97 I/O 01/31/17 01/31/17 01/31/17 02/01/17 02/01/17 02/01/17 07:00 15:00 23:00 07:00 15:00 23:00 Intake Total 947 ml 765 ml 886 ml 693 ml 791 ml Output Total 350 ml 725 ml 725 ml Balance 947 ml 415 ml 161 ml -32 ml 791 ml Intake Oral 0 ml Tube Feeding 587 ml 405 ml 406 ml 513 ml 431 ml Other 360 ml 360 ml 480 ml 180 ml 360 ml Output Urine Total 350 ml 725 ml 725 ml # Bowel Movements 0 1 1 Result Diagram: 01/29/17 0520 01/29/17 0520 Procedures 01/02/16 PEG placement 01/02/16 tracheostomy 07/22/2016 Wide excision of sacral skin wound, biopsy of the cavity lining and debridement. PEG tube replacement 07/29/16 Objective Remarks GENERAL: SKIN: Warm and dry. HEAD: Atraumatic. Normocephalic. EYES: Pupils equal and round. No scleral icterus. No injection or drainage. ENT: No nasal bleeding or discharge. Mucous membranes pink and moist. NECK: Trachea midline. No JVD. CARDIOVASCULAR: Regular rate and rhythm. RESPIRATORY: No accessory muscle use. Clear to auscultation. Breath sounds equal bilaterally. GASTROINTESTINAL: Abdomen soft, non-tender, nondistended. Hepatic and splenic margins not palpable. MUSCULOSKELETAL: Extremities without clubbing, cyanosis, or edema. No obvious deformities. NEUROLOGICAL: Awake and alert. No obvious cranial nerve deficits. Motor grossly within normal limits. Five out of 5 muscle strength in the arms and legs. Normal speech. PSYCHIATRIC: Appropriate mood and affect; insight and judgment normal. Laboratory Tests Test 01/05/17 01/06/17 08:35 08:41 Red Blood Count 4.43 MIL/MM3 (4.50-5.90) Hemoglobin 9.9 GM/DL (13.0-17.0) Hematocrit 32.0 % (39.0-51.0) Mean Corpuscular Volume 72.1 FL (80.0-100.0) Mean Corpuscular Hemoglobin 22.3 PG (27.0-34.0) Mean Corpuscular Hemoglobin 30.9 % Concent (32.0-36.0) Red Cell Distribution Width 19.9 % (11.6-17.2) Sodium Level 134 MEQ/L 133 MEQ/L (136-145) (136-145) Random Glucose 136 MG/DL 132 MG/DL (74-106) (74-106) Creatinine 0.59 MG/DL (0.60-1.30) GENERAL: SKIN: Warm and dry. HEAD: Atraumatic. Normocephalic. EYES: Pupils equal and round. No scleral icterus. No injection or drainage. ENT: No nasal bleeding or discharge. Mucous membranes pink and moist. NECK: Trachea midline. No JVD. TRACH. [place] CARDIOVASCULAR: Regular rate and rhythm. RESPIRATORY: No accessory muscle use. Clear to auscultation. Breath sounds equal bilaterally. GASTROINTESTINAL: Abdomen soft, non-tender, nondistended. Hepatic and splenic margins not palpable. MUSCULOSKELETAL: Extremities without clubbing, cyanosis, or edema. No obvious deformities. NEUROLOGICAL: Awake and alert. No obvious cranial nerve deficits. Motor grossly within normal limits. Five out of 5 muscle strength in the arms and legs. Normal speech. PSYCHIATRIC: Appropriate mood and affect; insight and judgment normal. Assessment and Plan Assessment and Plan impression respiratory failure CVA S/P TRACHEOSTOMY SEPSIS PLAN O2 NEEDED PULM. TOILET ANTIBIOTICS PER ID [place] Brandon Moy MD Feb 01, 2017 15:59
[2017-02-01] MEDS: SENNOSIDES SYRUP 8.8 MG/5 ML CUP PEG SCH (16:26)
[2017-02-01] MEDS: PARoxetine HCL SUSP 20 MG/10 ML UDC PEG SCH (18:11)
[2017-02-02] VITALS (7 sets, daily range): BP systolic 111–121; BP diastolic 54–79; PULSE 89–97; RESP 16–28; TEMP 97.7–98.4; O2SAT 95–100
[2017-02-02] MEDS: ACETIC ACID 0.25% SOLN 1000 ML IRR BTL IRRIGATION SCH ×3 (04:15→21:31)
[2017-02-02] MEDS: HEPARIN SODIUM - SQ 10,000 UNITS/ML VIAL SQ SCH ×3 (04:16→21:31)
[2017-02-02] MEDS: ARTIFICIAL TEARS OPTH SOLN 15 ML BTL EACH EYE SCH ×2 (07:40→21:30)
[2017-02-02] MEDS: SODIUM CHLORIDE 0.65% NASAL SPRAY 45 ML BTL NASAL SCH ×2 (07:40→21:30)
[2017-02-02] MEDS: BACITRACIN TOP OINT 15 GM TUBE TOP SCH ×2 (07:40→21:30)
[2017-02-02] MEDS: NYSTATIN 100,000 U/GM PWD 15 GM BTL TOPICAL SCH ×2 (07:40→21:30)
[2017-02-02] MEDS: LACTOBACILLUS ACIDOPHILUS 1 GM PACKET G-TUBE SCH ×3 (07:44→18:00)
[2017-02-02] MEDS: levETIRAcetam 500 MG/5 ML UDC TUBE SCH ×2 (07:44→21:29)
[2017-02-02] MEDS: DILTIAZEM HCL 30 MG TAB PEG SCH ×4 (07:44→21:29)
[2017-02-02] MEDS: LANSOPRAZOLE SOLUTAB 30 MG TAB NG SCH ×2 (07:44→21:29)
[2017-02-02] MEDS: ASPIRIN 325 MG TAB TUBE SCH (07:45)
[2017-02-02] MEDS: SENNOSIDES SYRUP 8.8 MG/5 ML CUP PEG SCH (14:21)
--- NOTE | 2017-02-02 15:35 | HHI.PR ---
Subjective Remarks Follow-up diarrhea and respiratory failure. 3 loose stools overnight. Saturating 100% on FiO2 of 35%. Minimal trach secretions. Discussed with RN seen with family Objective Vitals Vital Signs Date Time Temp Pulse Resp B/P Pulse Ox O2 Delivery O2 Flow Rate FiO2 02/02/17 10:09 100 T-piece 5.00 35 02/02/17 08:00 98.2 93 27 115/75 100 02/02/17 08:00 98 Trach Collar 7.00 35 02/02/17 00:00 98.4 89 20 111/77 100 02/01/17 20:34 98 T-Piece 7.00 35 02/01/17 20:15 98 T-piece 35 02/01/17 20:00 98.9 91 20 117/77 98 02/01/17 17:44 95/71 02/01/17 16:00 98.5 95 20 117/81 100 I/O 02/01/17 02/01/17 02/01/17 02/02/17 02/02/17 02/02/17 07:00 15:00 23:00 07:00 15:00 23:00 Intake Total 693 ml 791 ml 469 ml 440 ml 924 ml Output Total 725 ml 900 ml 625 ml 375 ml Balance -32 ml -109 ml -156 ml 65 ml 924 ml Intake Oral 0 ml Tube Feeding 513 ml 431 ml 369 ml 440 ml 564 ml Other 180 ml 360 ml 100 ml 360 ml Output Urine Total 725 ml 900 ml 625 ml 375 ml # Bowel Movements 1 3 1 1 Result Diagram: 01/29/1751901/29/1720 Objective Remarks Well-developed well-nourished in no distress on trach collar Skin is warm and dry with sacral ulcer with no signs of infection Regular rate and rhythm without murmur Lungs are clear with increase bronchial breath sounds. No crackles Awake but nonresponsive Procedures 01/02/16 PEG placement 01/02/16 tracheostomy 07/22/2016 Wide excision of sacral skin wound, biopsy of the cavity lining and debridement. PEG removal and Gj tube placement 07/29/16 VAC changes- M-W-F 10/23/16, 11/18, 12/31- GJ tube replacement A/P Problem List: (1) CVA (cerebral vascular accident) ICD Code: I63.9 Status: Acute (2) A-fib ICD Code: I48.91 Status: Chronic (3) DM (diabetes mellitus) ICD Code: E11.9 Status: Chronic Assessment and Plan Neuro/Psych: //Initial hospitalization [place] and cerebellar CVA with Basilar artery thrombosis //Status post brain biopsy on December 13: Path report - acute infarct, no evidence of lymphoma //Depression Monitor neuro status, Off sedation. On Keppra 500mg BID - 750 twice a day home prior to arrival. On Paxil 20 by mouth daily for depression. On Ativan 0.5 mg every 4 hours when necessary anxiety. On acetaminophen with codeine for pain scale of 2-10. Pulm: //Vent dependent respiratory failure //Right upper lobe/right middle lobe pulmonary nodules - outpatient CT scan without contrast in 6 months to follow-up Continue with oxygen keep sat >92%. Trach changed to size #6 XLT on 01/09 Duo nebs every 6 hours SBT/TP trials as karlie. Leave on TP 10/02 as tolerated Pulm toilet, trach care 01/09 CTA chest: No PE, bilateral lower lobe infiltrates. 4 mm right upper lobe /5 mm right middle lobe nodule.. Pulm is following- Dr. Taylor CV: //History of paroxysmal atrial fibrillation currently in sinus tachycardia //Hypertension //Dyslipidemia Monitor HR and BP keep MAP>65mmHg. O Continue ASA 325mg daily, Cardizem 30mg QID Previously on sotalol 40 mg a night for paroxysmal fibrillation. Renal//FEN: Monitor renal function, Accurate I/O's electrolytes replacement per protocol. GI: //Mild protein calorie malnutrition //Gastroesophageal reflux disease Diarrhea on bowel regimen. Negative for C. difficile. Improved On Prevacid 30 mg Q12, on tube feeds(Jevity 1.5 at 55 ml/hr) J-tube is currently unplugged. Continue bowel regimen with hold parameters, Lactinex and Imodium. Repeat CBC and BMP unremarkable ID: //Klebsiella/Pseudomonas/staph aureus HCAP //PSAE UTI S/p Cefepime. Monitor for signs of infections ( Fever, WBC) strep pneumonia and Legionella urinary Ag is negative C-diff PCR negative on 01/13 01/09 BC : Staph Epi, Urine cx: Pseudomonas, Sputum cx: Pseudomonas, kleb, Staph. (Pseudomonas in sputum is only intermediately sensitive to cefepime, clinically improving. Patient was pancultured on 01/19 ( Blood, sputum, urine) follow up on cxs Heme: //Microcytic anemia //Stage III a non-Hodgkin's lymphoma - s/p chemotherapy 2014 Monitor CBC No further treatment recommended per [facility] oncology at this time. Endo: //History of diabetes mellitus. A1c 5.5. Fingersticks have been stable Discontinue Accu-Cheks On metformin 500 daily at home. Patient not on meds Derm //Stage IV decubitus ulcers -Dressing changes daily. Reconsult wound care //GI prophylaxis with Prevacid 30 mg Q12 //DVT prophylaxis with SCD and Heparin SQ Discharge Planning Needs placement when arranged. [facility] has declined the patient Problem Qualifiers (1) CVA (cerebral vascular accident): (2) DM (diabetes mellitus): Qualified Code: E11.9 - Type 2 diabetes mellitus without complications Thomas Buck MD Feb 02, 2017 15:35
[2017-02-02] MEDS: PARoxetine HCL SUSP 20 MG/10 ML UDC PEG SCH (18:01)
[2017-02-03] VITALS (7 sets, daily range): BP systolic 109–120; BP diastolic 71–77; PULSE 74–98; RESP 18–24; TEMP 95.7–98.6; O2SAT 95–100
[2017-02-03] MEDS: HEPARIN SODIUM - SQ 10,000 UNITS/ML VIAL SQ SCH ×3 (05:16→21:12)
[2017-02-03] MEDS: ACETIC ACID 0.25% SOLN 1000 ML IRR BTL IRRIGATION SCH ×3 (05:16→21:13)
[2017-02-03] MEDS: SODIUM CHLORIDE 0.65% NASAL SPRAY 45 ML BTL NASAL SCH ×2 (07:26→21:09)
[2017-02-03] MEDS: NYSTATIN 100,000 U/GM PWD 15 GM BTL TOPICAL SCH ×2 (07:27→21:00)
[2017-02-03] MEDS: BACITRACIN TOP OINT 15 GM TUBE TOP SCH ×2 (07:27→21:00)
[2017-02-03] MEDS: ARTIFICIAL TEARS OPTH SOLN 15 ML BTL EACH EYE SCH ×2 (07:27→21:05)
[2017-02-03] MEDS: levETIRAcetam 500 MG/5 ML UDC TUBE SCH ×2 (07:29→21:13)
[2017-02-03] MEDS: DILTIAZEM HCL 30 MG TAB PEG SCH ×4 (07:30→21:00)
[2017-02-03] MEDS: ASPIRIN 325 MG TAB TUBE SCH (07:30)
[2017-02-03] MEDS: LANSOPRAZOLE SOLUTAB 30 MG TAB NG SCH ×2 (07:30→21:12)
[2017-02-03] MEDS: LACTOBACILLUS ACIDOPHILUS 1 GM PACKET G-TUBE SCH ×3 (07:30→18:02)
--- NOTE | 2017-02-03 08:45 | HHI.PR ---
Subjective Remarks ass OPENS EYES NO DISTRESS SAT 96% PULSE 82 Objective Vital Signs Date Time Temp Pulse Resp B/P Pulse Ox O2 Delivery O2 Flow Rate FiO2 02/03/17 00:00 98.6 74 18 109/71 100 02/02/17 21:07 99 T-Piece 7.00 35 Humidified 02/02/17 20:02 95 T-piece 35 02/02/17 20:00 98.2 97 19 112/54 98 02/02/17 16:00 97.7 92 16 121/78 99 02/02/17 12:00 97.7 94 28 115/79 100 02/02/17 10:09 100 T-piece 5.00 35 I/O 02/02/17 02/02/17 02/02/17 02/03/17 02/03/17 02/03/17 07:00 15:00 23:00 07:00 15:00 23:00 Intake Total 440 ml 924 ml 537 ml 408 ml Output Total 375 ml 300 ml 200 ml 400 ml Balance 65 ml 624 ml 337 ml 8 ml Intake Oral 0 ml 0 ml 0 ml Tube Feeding 440 ml 564 ml 437 ml 408 ml Other 360 ml 100 ml Output Urine Total 375 ml 300 ml 200 ml 400 ml # Bowel Movements 1 1 0 1 Procedures 01/02/16 PEG placement 01/02/16 tracheostomy 07/22/2016 Wide excision of sacral skin wound, biopsy of the cavity lining and debridement. PEG tube replacement 07/29/16 Objective Remarks GENERAL: SKIN: Warm and dry. HEAD: Atraumatic. Normocephalic. EYES: Pupils equal and round. No scleral icterus. No injection or drainage. ENT: No nasal bleeding or discharge. Mucous membranes pink and moist. NECK: Trachea midline. No JVD. CARDIOVASCULAR: Regular rate and rhythm. RESPIRATORY: No accessory muscle use. Clear to auscultation. Breath sounds equal bilaterally. GASTROINTESTINAL: Abdomen soft, non-tender, nondistended. Hepatic and splenic margins not palpable. MUSCULOSKELETAL: Extremities without clubbing, cyanosis, or edema. No obvious deformities. NEUROLOGICAL: Awake and alert. No obvious cranial nerve deficits. Motor grossly within normal limits. Five out of 5 muscle strength in the arms and legs. Normal speech. PSYCHIATRIC: Appropriate mood and affect; insight and judgment normal. Laboratory Tests Test 01/05/17 01/06/17 08:35 08:41 Red Blood Count 4.43 MIL/MM3 (4.50-5.90) Hemoglobin 9.9 GM/DL (13.0-17.0) Hematocrit 32.0 % (39.0-51.0) Mean Corpuscular Volume 72.1 FL (80.0-100.0) Mean Corpuscular Hemoglobin 22.3 PG (27.0-34.0) Mean Corpuscular Hemoglobin 30.9 % Concent (32.0-36.0) Red Cell Distribution Width 19.9 % (11.6-17.2) Sodium Level 134 MEQ/L 133 MEQ/L (136-145) (136-145) Random Glucose 136 MG/DL 132 MG/DL (74-106) (74-106) Creatinine 0.59 MG/DL (0.60-1.30) GENERAL: SKIN: Warm and dry. HEAD: Atraumatic. Normocephalic. EYES: Pupils equal and round. No scleral icterus. No injection or drainage. ENT: No nasal bleeding or discharge. Mucous membranes pink and moist. NECK: Trachea midline. No JVD. TRACH. [place] CARDIOVASCULAR: Regular rate and rhythm. RESPIRATORY: No accessory muscle use. Clear to auscultation. Breath sounds equal bilaterally. GASTROINTESTINAL: Abdomen soft, non-tender, nondistended. Hepatic and splenic margins not palpable. MUSCULOSKELETAL: Extremities without clubbing, cyanosis, or edema. No obvious deformities. NEUROLOGICAL: Awake and alert. No obvious cranial nerve deficits. Motor grossly within normal limits. Five out of 5 muscle strength in the arms and legs. Normal speech. PSYCHIATRIC: Appropriate mood and affect; insight and judgment normal. Assessment and Plan Assessment and Plan impression respiratory failure CVA S/P TRACHEOSTOMY SEPSIS PLAN O2 NEEDED PULM. TOILET ANTIBIOTICS PER ID Teague poor Brandon Taylor MD Feb 03, 2017 08:45
--- NOTE | 2017-02-03 12:10 | HHI.PR ---
Subjective Remarks F/U resp failure and diarrhea. Stable on trach with .35 FIO2 . Semiformed stools dw RN Objective Vitals Vital Signs Date Time Temp Pulse Resp B/P Pulse Ox O2 Delivery O2 Flow Rate FiO2 02/03/17 11:01 98 T-piece 6.00 35 02/03/17 08:00 96.2 98 24 115/77 98 02/03/17 00:00 98.6 74 18 109/71 100 02/02/17 21:07 99 T-Piece 7.00 35 Humidified 02/02/17 20:02 95 T-piece 35 02/02/17 20:00 98.2 97 19 112/54 98 02/02/17 16:00 97.7 92 16 121/78 99 I/O 02/02/17 02/02/17 02/02/17 02/03/17 02/03/17 02/03/17 06:59 14:59 22:59 06:59 14:59 22:59 Intake Total 440 ml 924 ml 537 ml 408 ml Output Total 375 ml 300 ml 200 ml 400 ml Balance 65 ml 624 ml 337 ml 8 ml Intake Oral 0 ml 0 ml 0 ml Tube Feeding 440 ml 564 ml 437 ml 408 ml Other 360 ml 100 ml Output Urine Total 375 ml 300 ml 200 ml 400 ml # Bowel Movements 1 1 0 1 Imaging Last Impressions Tube Change 01/24/17 0000 Signed Impressions: Service Date/Time: Tuesday, January 24, 2017 17:10 - CONCLUSION: Uncomplicated gastrojejunostomy tube exchange as above. Scott Griffin MD Chest X-Ray 01/20/17 0600 Signed Impressions: Service Date/Time: Friday, January 20, 2017 04:22 - CONCLUSION: 1. Bibasilar patchy densities, unchanged. 2. Tracheostomy tube unchanged. Mikie Vargas MD Head CT 01/09/17 0000 Signed Impressions: Service Date/Time: December 17:43 - CONCLUSION: 1. No acute hemorrhage or mass effect. 2. 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 3. Atrophy. Gerald Mukherjee MD CT Angiography 01/09/17 0000 Signed Impressions: Service Date/Time: December 17:49 - CONCLUSION: 1. No evidence of pulmonary emboli. 2. Patchy consolidation in both posterior lower lobes right greater than left. This could represent pneumonia. 3. 2 small noncalcified pulmonary nodules which are nonspecific finding. Short-term CT followup is recommended beginning in 6 months with a noncontrast outpatient CT. Gerald Mukherjee MD Tube Check 12/04/16 0000 Signed Impressions: Service Date/Time: Sunday, December 04, 2016 17:58 - CONCLUSION: Uncomplicated tube injection as above. the tube is in good position and functions normally. Moises Ramírez MD Abdomen X-Ray 08/31/16 0000 Signed Impressions: Service Date/Time: Wednesday, August 31, 2016 16:36 - CONCLUSION: 1. No acute findings. Mild constipation. Durga Doston MD Abdomen/Pelvis CT 04/12/16 0000 Signed Impressions: Service Date/Time: Tuesday, April 12, 2016 20:52 - CONCLUSION: 1. 6.4 cm necrotic mass or abscess in the soft tissues posteriorly just below the sacrum associated with some bony destructive change of the lower most sacrum and coccyx with inflammatory changes extending into the ischiorectal fossa and into the presacral retroperitoneum predominantly on the left side. There is associated fairly marked mural thickening of the anal verge and rectum. 2. There is gastrostomy and Arevalo catheter present. Stable abdominal aortic aneurysm. Durga Dotson MD Head Magnetic Resonance Angiography 03/05/16 0000 Signed Impressions: Service Date/Time: Saturday, March 05, 2016 09:26 - CONCLUSION: Persistent high-grade subtotal occlusive stenotic lesions in the distal right vertebral artery and proximal basilar artery with significant improvement in flow and recanalization following initial presentation of thrombosis. Stable interstitial circulation without significant stenosis. 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 There is decreasing restricted diffusion and increasing loss of volume characteristic of a subacute to chronic infarct. No evidence of acute infarct, acute hemorrhage mass or edema. Ernesto Kulkarni MD Neck Magnetic Resonance Angiography 12/22/15 1445 Signed Impressions: Service Date/Time: Tuesday, December 22, 2015 09:22 - CONCLUSION: Variant origin of the left vertebral artery from the aortic arch. No evidence of carotid stenosis. Glen Zamora MD Head/Brain Mag Res Venography 12/22/15 0000 Signed Impressions: Service Date/Time: Tuesday, December 22, 2015 09:22 - CONCLUSION: Normal MRV. Jonel Jones Jr., MD Objective Remarks Well-developed well-nourished in no distress on trach collar Skin is warm and dry with sacral ulcer with no signs of infection Regular rate and rhythm without murmur Lungs with rhonchi. No crackles Awake but nonresponsive Procedures 01/02/16 PEG placement 01/02/16 tracheostomy 07/22/2016 Wide excision of sacral skin wound, biopsy of the cavity lining and debridement. PEG removal and Gj tube placement 07/29/16 VAC changes- M-W-F 10/23/16, 11/18, 12/31- GJ tube replacement A/P Problem List: (1) CVA (cerebral vascular accident) ICD Code: I63.9 Status: Acute (2) A-fib ICD Code: I48.91 Status: Chronic (3) DM (diabetes mellitus) ICD Code: E11.9 Status: Chronic Assessment and Plan Neuro/Psych: //Initial hospitalization [place] and cerebellar CVA with Basilar artery thrombosis //Status post brain biopsy on December 13: Path report - acute infarct, no evidence of lymphoma //Depression Monitor neuro status, Off sedation. On Keppra 500mg BID - 750 twice a day home prior to arrival. On Paxil 20 by mouth daily for depression. On Ativan 0.5 mg every 4 hours when necessary anxiety. On acetaminophen with codeine for pain scale of 2-10. Pulm: //Vent dependent respiratory failure //Right upper lobe/right middle lobe pulmonary nodules - outpatient CT scan without contrast in 6 months to follow-up Continue with oxygen keep sat >92%. Trach changed to size #6 XLT on 01/09 Duo nebs every 6 hours SBT/TP trials as karlie. Leave on TP 10/02 as tolerated Pulm toilet, trach care 01/09 CTA chest: No PE, bilateral lower lobe infiltrates. 4 mm right upper lobe /5 mm right middle lobe nodule.. Pulm is following- Dr. Taylor CV: //History of paroxysmal atrial fibrillation currently in sinus tachycardia //Hypertension //Dyslipidemia Monitor HR and BP keep MAP>65mmHg. O Continue ASA 325mg daily, Cardizem 30mg QID Previously on sotalol 40 mg a night for paroxysmal fibrillation. Renal//FEN: Monitor renal function, Accurate I/O's electrolytes replacement per protocol. GI: //Mild protein calorie malnutrition //Gastroesophageal reflux disease Diarrhea on bowel regimen. Negative for C. difficile. Improved On Prevacid 30 mg Q12, on tube feeds(Jevity 1.5 at 55 ml/hr) J-tube is currently unplugged. Continue bowel regimen with hold parameters, Lactinex and Imodium. Repeat CBC and BMP unremarkable ID: //Klebsiella/Pseudomonas/staph aureus HCAP //PSAE UTI S/p Cefepime. Monitor for signs of infections ( Fever, WBC) strep pneumonia and Legionella urinary Ag is negative C-diff PCR negative on 01/13 01/09 BC : Staph Epi, Urine cx: Pseudomonas, Sputum cx: Pseudomonas, kleb, Staph. (Pseudomonas in sputum is only intermediately sensitive to cefepime, clinically improving. Patient was pancultured on 01/19 ( Blood, sputum, urine) follow up on cxs Heme: //Microcytic anemia //Stage III a non-Hodgkin's lymphoma - s/p chemotherapy 2014 Monitor CBC No further treatment recommended per heme oncology at this time. Endo: //History of diabetes mellitus. A1c 5.5. Fingersticks have been stable Discontinue Accu-Cheks On metformin 500 daily at home. Patient not on meds Derm //Stage IV decubitus ulcers -Dressing changes daily. Reconsult wound care //GI prophylaxis with Prevacid 30 mg Q12 //DVT prophylaxis with SCD and Heparin SQ Discharge Planning Needs placement when arranged. [facility] has declined the patient. CM ff Problem Qualifiers (1) CVA (cerebral vascular accident): (2) DM (diabetes mellitus): Qualified Code: E11.9 - Type 2 diabetes mellitus without complications Thomas Buck MD Feb 03, 2017 12:10
[2017-02-03] MEDS: SENNOSIDES SYRUP 8.8 MG/5 ML CUP PEG SCH (16:00)
[2017-02-03] MEDS: PARoxetine HCL SUSP 20 MG/10 ML UDC PEG SCH (18:03)
[2017-02-04] VITALS: BP 121/74; PULSE 93; RESP 19; TEMP 96.3; O2SAT 100
[2017-02-04] MEDS: HEPARIN SODIUM - SQ 10,000 UNITS/ML VIAL SQ SCH ×3 (05:18→21:50)
[2017-02-04] MEDS: ACETIC ACID 0.25% SOLN 1000 ML IRR BTL IRRIGATION SCH ×3 (05:19→21:50)
[2017-02-04 08:00] VITALS: BP 133/81; PULSE 98; RESP 16; TEMP 97.6; O2SAT 100
[2017-02-04] MEDS: DILTIAZEM HCL 30 MG TAB PEG SCH ×4 (09:02→21:50)
[2017-02-04] MEDS: LANSOPRAZOLE SOLUTAB 30 MG TAB NG SCH ×2 (09:03→21:50)
[2017-02-04] MEDS: levETIRAcetam 500 MG/5 ML UDC TUBE SCH ×2 (09:03→21:49)
[2017-02-04] MEDS: LACTOBACILLUS ACIDOPHILUS 1 GM PACKET G-TUBE SCH ×3 (09:03→17:49)
[2017-02-04] MEDS: ASPIRIN 325 MG TAB TUBE SCH (09:03)
[2017-02-04] MEDS: SODIUM CHLORIDE 0.65% NASAL SPRAY 45 ML BTL NASAL SCH ×2 (09:04→21:51)
[2017-02-04] MEDS: ARTIFICIAL TEARS OPTH SOLN 15 ML BTL EACH EYE SCH ×2 (09:05→21:50)
[2017-02-04] MEDS: BACITRACIN TOP OINT 15 GM TUBE TOP SCH ×2 (09:05→21:51)
[2017-02-04] MEDS: NYSTATIN 100,000 U/GM PWD 15 GM BTL TOPICAL SCH ×2 (09:06→21:52)
--- NOTE | 2017-02-04 10:03 | HHI.PR ---
Subjective Remarks Follow up resp failure and diarrhea. Patient seen and examined. Mother at bedside. Patient lying in bed comfortably, t-piece in place. No apparent distress. Opens eyes to vocal stimulation. Does not follow commands. Tracks with eyes. No new acute events overnight. Afebrile. VSS. Objective Vitals Vital Signs Date Time Temp Pulse Resp B/P Pulse Ox O2 Delivery O2 Flow Rate FiO2 02/04/17 08:00 97.6 98 16 133/81 100 02/04/17 00:00 96.3 93 19 121/74 100 02/03/17 20:48 Trach Collar 7.00 02/03/17 20:00 98.2 92 18 109/72 98 02/03/17 18:18 99 T-piece 6.00 35 02/03/17 16:00 95.7 92 18 120/72 95 02/03/17 12:00 96.1 85 24 116/71 99 02/03/17 11:01 98 T-piece 6.00 35 I/O 02/03/17 02/03/17 02/03/17 02/04/17 02/04/17 02/04/17 06:59 14:59 22:59 06:59 14:59 22:59 Intake Total 408 ml 941 ml 0 ml 494 ml Output Total 400 ml 500 ml 200 ml 400 ml Balance 8 ml 441 ml -200 ml 94 ml Intake Oral 0 ml 0 ml 0 ml IV Total 2 ml 494 ml Tube Feeding 408 ml 579 ml Other 360 ml Output Urine Total 400 ml 500 ml 200 ml 400 ml # Bowel Movements 1 3 0 1 Imaging Last Impressions Tube Change 01/24/17 0000 Signed Impressions: Service Date/Time: Tuesday, January 24, 2017 17:10 - CONCLUSION: Uncomplicated gastrojejunostomy tube exchange as above. Scott Griffin MD Chest X-Ray 01/20/17 0600 Signed Impressions: Service Date/Time: Friday, January 20, 2017 04:22 - CONCLUSION: 1. Bibasilar patchy densities, unchanged. 2. Tracheostomy tube unchanged. Mikie Vargas MD Head CT 01/09/17 0000 Signed Impressions: Service Date/Time: December 17:43 - CONCLUSION: 1. No acute hemorrhage or mass effect. 2. 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 3. Atrophy. Gerald Mukherjee MD CT Angiography 01/09/17 0000 Signed Impressions: Service Date/Time: December 17:49 - CONCLUSION: 1. No evidence of pulmonary emboli. 2. Patchy consolidation in both posterior lower lobes right greater than left. This could represent pneumonia. 3. 2 small noncalcified pulmonary nodules which are nonspecific finding. Short-term CT followup is recommended beginning in 6 months with a noncontrast outpatient CT. Gerald Mukherjee MD Tube Check 12/04/16 0000 Signed Impressions: Service Date/Time: Sunday, December 04, 2016 17:58 - CONCLUSION: Uncomplicated tube injection as above. the tube is in good position and functions normally. Moises Ramírez MD Abdomen X-Ray 08/31/16 0000 Signed Impressions: Service Date/Time: Wednesday, August 31, 2016 16:36 - CONCLUSION: 1. No acute findings. Mild constipation. Durga Dotson MD Abdomen/Pelvis CT 04/12/16 0000 Signed Impressions: Service Date/Time: Tuesday, April 12, 2016 20:52 - CONCLUSION: 1. 6.4 cm necrotic mass or abscess in the soft tissues posteriorly just below the sacrum associated with some bony destructive change of the lower most sacrum and coccyx with inflammatory changes extending into the ischiorectal fossa and into the presacral retroperitoneum predominantly on the left side. There is associated fairly marked mural thickening of the anal verge and rectum. 2. There is gastrostomy and Arevalo catheter present. Stable abdominal aortic aneurysm. Durga Dotson MD Head Magnetic Resonance Angiography 03/05/16 0000 Signed Impressions: Service Date/Time: Saturday, March 05, 2016 09:26 - CONCLUSION: Persistent high-grade subtotal occlusive stenotic lesions in the distal right vertebral artery and proximal basilar artery with significant improvement in flow and recanalization following initial presentation of thrombosis. Stable interstitial circulation without significant stenosis. 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 There is decreasing restricted diffusion and increasing loss of volume characteristic of a subacute to chronic infarct. No evidence of acute infarct, acute hemorrhage mass or edema. Ernesto Kulkarni MD Neck Magnetic Resonance Angiography 12/22/15 1445 Signed Impressions: Service Date/Time: Tuesday, December 22, 2015 09:22 - CONCLUSION: Variant origin of the left vertebral artery from the aortic arch. No evidence of carotid stenosis. Glen Zamora MD Head/Brain Mag Res Venography 12/22/15 0000 Signed Impressions: Service Date/Time: Tuesday, December 22, 2015 09:22 - CONCLUSION: Normal MRV. Jonel Jones Jr., MD Objective Remarks GENERAL: Non-verbal, lethargic, opens eyes to voice and command, tracking people in room. Not in acute distress. SKIN: Warm and dry. HEENT: Normocephalic. Pupils nonicteric. Nose without bleeding. Airway patent. NECK: Supple, trachea midline. T-tube in place. No JVD. CARDIOVASCULAR: Regular rate and rhythm. No murmur appreciated. RESPIRATORY: Breath sounds equal bilaterally. No accessory muscle use. Trach tube in place. Bedside monitor indicated oxygen saturation was 98%. GASTROINTESTINAL: Abdomen soft, non-tender, nondistended. GJ tube noted, area around insertion was clean, dry, dressing intact. MUSCULOSKELETAL: No cyanosis, or edema. PSYCHIATRIC: Pt non-verbal, he appeared calm and not in distress. Procedures 07/22/2016 Wide excision of sacral skin wound, biopsy of the cavity lining and debridement. PEG removal and Gj tube placement 07/29/16 VAC changes- M-W-F 10/23/16, 11/18, 12/31- GJ tube replacement 01/02/16 PEG placement 01/02/16 tracheostomy A/P Problem List: (1) CVA (cerebral vascular accident) ICD Code: I63.9 Status: Acute (2) A-fib ICD Code: I48.91 Status: Chronic (3) DM (diabetes mellitus) ICD Code: E11.9 Status: Chronic Assessment and Plan Mr. Flores is a 60 year-old male with past medical history of paroxysmal A. fib , hypertension, stage III non-Hodgkin's lymphoma status post chemotherapy who came into the hospital with altered mental status. 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 On Keppra 500mg BID - 750 twice a day home prior to arrival. On Paxil 20 by mouth daily for depression. On Ativan 0.5 mg every 4 hours when necessary anxiety. On acetaminophen with codeine for pain scale of 2-10. Vent dependent respiratory failure, currently trached and on t-piece Right upper lobe/right middle lobe pulmonary nodules - outpatient CT scan without contrast in 6 months to follow-up Continue with oxygen keep sat >92%. Trach changed to size #6 XLT on 01/09 Duo nebs every 6 hours Leave on TP 10/02 as tolerated Pulm toilet, trach care 01/09 CTA chest: No PE, bilateral lower lobe infiltrates. 4 mm right upper lobe/5 mm right middle lobe nodule.. Pulm is following - Dr. Taylor History of paroxysmal atrial fibrillation currently in sinus tachycardia Hypertension Dyslipidemia Monitor HR and BP keep MAP>65mmHg. O Continue ASA 325mg daily Cardizem 30mg QID Previously on sotalol 40 mg a night for paroxysmal fibrillation. Mild protein calorie malnutrition Gastroesophageal reflux disease Diarrhea, negative for C. difficile. Improved On Prevacid 30 mg Q12, on tube feeds(Jevity 1.5 at 55 ml/hr) Continue bowel regimen with hold parameters, Lactinex and Imodium. Klebsiella/Pseudomonas/staph aureus HCAP PSAE UTI S/p Cefepime. Monitor for signs of infections ( Fever, WBC) strep pneumonia and Legionella urinary Ag is negative C-diff PCR negative on 01/13 01/09 BC : Staph Epi, Urine cx: Pseudomonas, Sputum cx: Pseudomonas, kleb, Staph. (Pseudomonas in sputum is only intermediately sensitive to cefepime, clinically improving. Patient was pancultured on 01/19 ( Blood, sputum, urine) follow up on cxs Microcytic anemia Stage III a non-Hodgkin's lymphoma - s/p chemotherapy 2014 Monitor CBC No further treatment recommended per heme oncology at this time. History of diabetes mellitus. A1c 5.5. Fingersticks have been stable. On metformin 500 daily at home. Patient not on meds Stage IV decubitus ulcers -Dressing changes daily. Wound care last saw patient on 01/17/17, no new recommendations continue packing with Betadine moistened rolled Janis and covered with ABD pad and paper tape to secure. GI prophylaxis with Prevacid 30 mg Q12 DVT prophylaxis with SCD and Heparin SQ Discharge Planning Last CM note: 02/03/17 I MET WITH THIS PTS SPOUSE AND GRANDDAUGHTER TODAY AND I UPDATED THEM ON THE STATUS OF THE SNF PLACEMENT.THIS PT IS BEING FOLLOWED BY SOURAV Pacheco OF [facility] [phone]. SOURAV HAS BEEN CONTACTED BY [employer] AND SOURAV TO ASSIST WITH WITH PLACEMENT OF THIS PT AT [facility] Problem Qualifiers (1) CVA (cerebral vascular accident): (2) DM (diabetes mellitus): Qualified Code: E11.9 - Type 2 diabetes mellitus without complications Haley Seymour Feb 04, 2017 10:03
[2017-02-04 12:00] VITALS: BP 125/76; PULSE 88; RESP 18; TEMP 96.6; O2SAT 100
[2017-02-04] MEDS: SENNOSIDES SYRUP 8.8 MG/5 ML CUP PEG SCH (16:00)
[2017-02-04] MEDS: PARoxetine HCL SUSP 20 MG/10 ML UDC PEG SCH (18:17)
[2017-02-04 20:00] VITALS: BP 126/79; PULSE 92; RESP 20; TEMP 97.6; O2SAT 100
[2017-02-05] VITALS (7 sets, daily range): BP systolic 118–129; BP diastolic 71–77; PULSE 89–95; RESP 16–20; TEMP 96.8–97.9; O2SAT 98–100
[2017-02-05] MEDS: HEPARIN SODIUM - SQ 10,000 UNITS/ML VIAL SQ SCH ×3 (05:10→20:41)
[2017-02-05] MEDS: ACETIC ACID 0.25% SOLN 1000 ML IRR BTL IRRIGATION SCH ×3 (05:10→20:57)
[2017-02-05 07:26] LABS: AUTOMATED NEUTROPHIL # 3.7 TH/MM3 (1.8-7.7); BASOPHIL # 0.1 TH/MM3 (0-0.2); BASOPHIL % 1.5 % (0.0-2.0); EOSINOPHIL # 0.2 TH/MM3 (0-0.4); EOSINOPHIL % 3.3 % (0.0-4.0); HEMATOCRIT 29.9 % (39.0-51.0); HEMO FLAGS DIFF FINAL; LYMPH % 21.5 % (9.0-44.0); LYMPHOCYTE # 1.2 TH/MM3 (1.0-4.8); MEAN CELL VOLUME 72.8 FL (80.0-100.0); MEAN CORPUSCULAR HEMOGLOBIN 22.7 PG (27.0-34.0); MEAN CORPUSCULAR HGB CONC 31.1 % (32.0-36.0); MONO % 6.2 % (0.0-8.0); NEUT % 67.5 % (16.0-70.0); PLATELET COUNT 227 TH/MM3 (150-450); RED BLOOD COUNT 4.11 MIL/MM3 (4.50-5.90); RED CELL DISTRIBUTION WIDTH 20.5 % (11.6-17.2); WHITE BLOOD COUNT 5.5 TH/MM3 (4.0-11.0)
[2017-02-05 07:38] LABS: BICARBONATE 26.5 MEQ/L (21.0-32.0); POTASSIUM 3.9 MEQ/L (3.5-5.1)
[2017-02-05] MEDS: LACTOBACILLUS ACIDOPHILUS 1 GM PACKET G-TUBE SCH ×3 (09:36→17:38)
[2017-02-05] MEDS: ASPIRIN 325 MG TAB TUBE SCH (09:36)
[2017-02-05] MEDS: DILTIAZEM HCL 30 MG TAB PEG SCH ×4 (09:36→20:41)
[2017-02-05] MEDS: levETIRAcetam 500 MG/5 ML UDC TUBE SCH ×2 (09:36→20:41)
[2017-02-05] MEDS: LANSOPRAZOLE SOLUTAB 30 MG TAB NG SCH ×2 (09:36→20:41)
--- NOTE | 2017-02-05 09:36 | HHI.PR ---
Subjective Remarks Follow up respiratory failure and diarrhea. Patient seen and examined, family at bedside. Lying in bed in no apparent distress. Spoke to RN, no acute complaints overnight. Tolerating TF. Positive BM. VSS. Afebrile. Objective Vitals Vital Signs Date Time Temp Pulse Resp B/P Pulse Ox O2 Delivery O2 Flow Rate FiO2 02/05/17 08:00 96.8 93 16 129/71 100 02/05/17 04:58 Trach Collar 7.00 02/05/17 00:00 97.5 89 20 119/74 98 02/04/17 21:50 100 Trach Collar 7.00 02/04/17 20:00 97.6 92 20 126/79 100 02/04/17 12:00 96.6 88 18 125/76 100 I/O 02/04/17 02/04/17 02/04/17 02/05/17 02/05/17 02/05/17 07:00 15:00 23:00 07:00 15:00 23:00 Intake Total 494 ml 473 ml 619 ml Output Total 400 ml 355.0 ml 350 ml 450 ml Balance 94 ml 118.0 ml -350 ml 169 ml Intake Oral 0 ml 0 ml IV Total 494 ml 0 ml Tube Feeding 473 ml 359 ml Tube Irrigant 260 ml Output Urine Total 400 ml 350 ml 350 ml 450 ml Tube Feeding Residual Discard 5.0 ml # Bowel Movements 1 2 0 1 Result Diagram: 02/05/17 0629 02/05/17 0629 Imaging Last Impressions Tube Change 01/24/17 0000 Signed Impressions: Service Date/Time: Tuesday, January 24, 2017 17:10 - CONCLUSION: Uncomplicated gastrojejunostomy tube exchange as above. Scott Griffin MD Chest X-Ray 01/20/17 0600 Signed Impressions: Service Date/Time: Friday, January 20, 2017 04:22 - CONCLUSION: 1. Bibasilar patchy densities, unchanged. 2. Tracheostomy tube unchanged. Mikie Vargas MD Head CT 01/09/17 0000 Signed Impressions: Service Date/Time: December 17:43 - CONCLUSION: 1. No acute hemorrhage or mass effect. 2. 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 3. Atrophy. Gerald Mukherjee MD CT Angiography 01/09/17 0000 Signed Impressions: Service Date/Time: December 17:49 - CONCLUSION: 1. No evidence of pulmonary emboli. 2. Patchy consolidation in both posterior lower lobes right greater than left. This could represent pneumonia. 3. 2 small noncalcified pulmonary nodules which are nonspecific finding. Short-term CT followup is recommended beginning in 6 months with a noncontrast outpatient CT. Gerald Mukherjee MD Tube Check 12/04/16 0000 Signed Impressions: Service Date/Time: Sunday, December 04, 2016 17:58 - CONCLUSION: Uncomplicated tube injection as above. the tube is in good position and functions normally. Moises Ramírez MD Abdomen X-Ray 08/31/16 0000 Signed Impressions: Service Date/Time: Wednesday, August 31, 2016 16:36 - CONCLUSION: 1. No acute findings. Mild constipation. Durga Dotson MD Abdomen/Pelvis CT 04/12/16 0000 Signed Impressions: Service Date/Time: Tuesday, April 12, 2016 20:52 - CONCLUSION: 1. 6.4 cm necrotic mass or abscess in the soft tissues posteriorly just below the sacrum associated with some bony destructive change of the lower most sacrum and coccyx with inflammatory changes extending into the ischiorectal fossa and into the presacral retroperitoneum predominantly on the left side. There is associated fairly marked mural thickening of the anal verge and rectum. 2. There is gastrostomy and Arevalo catheter present. Stable abdominal aortic aneurysm. Durga Dotson MD Head Magnetic Resonance Angiography 03/05/16 0000 Signed Impressions: Service Date/Time: Saturday, March 05, 2016 09:26 - CONCLUSION: Persistent high-grade subtotal occlusive stenotic lesions in the distal right vertebral artery and proximal basilar artery with significant improvement in flow and recanalization following initial presentation of thrombosis. Stable interstitial circulation without significant stenosis. 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 There is decreasing restricted diffusion and increasing loss of volume characteristic of a subacute to chronic infarct. No evidence of acute infarct, acute hemorrhage mass or edema. Ernesto Kulkarni MD Neck Magnetic Resonance Angiography 12/22/15 9265 Signed Impressions: Service Date/Time: Tuesday, December 22, 2015 09:22 - CONCLUSION: Variant origin of the left vertebral artery from the aortic arch. No evidence of carotid stenosis. Glen Zamora MD Head/Brain Mag Res Venography 12/22/15 0000 Signed Impressions: Service Date/Time: Tuesday, December 22, 2015 09:22 - CONCLUSION: Normal MRV. Jonel Jones Jr., MD Objective Remarks GENERAL: Non-verbal, lethargic, opens eyes to voice and command, tracking people in room. Not in acute distress. SKIN: Warm and dry. HEENT: Normocephalic. Pupils nonicteric. Nose without bleeding. Airway patent. NECK: Supple, trachea midline. T-tube in place, site clean, dry, intact. No JVD. CARDIOVASCULAR: Regular rate and rhythm. No murmur appreciated. RESPIRATORY: Breath sounds equal bilaterally. No accessory muscle use. Trach tube in place. Bedside monitor indicated oxygen saturation was 98%. GASTROINTESTINAL: Abdomen soft, non-tender, nondistended. GJ tube noted, area around insertion was clean, dry, dressing intact. MUSCULOSKELETAL: No cyanosis, or edema. PSYCHIATRIC: Pt non-verbal, he appeared calm and not in distress. Procedures 07/22/2016 Wide excision of sacral skin wound, biopsy of the cavity lining and debridement. PEG removal and Gj tube placement 07/29/16 VAC changes- M-W-F 10/23/16, 11/18, 12/31- GJ tube replacement 01/02/16 PEG placement 01/02/16 tracheostomy A/P Problem List: (1) CVA (cerebral vascular accident) ICD Code: I63.9 Status: Acute (2) A-fib ICD Code: I48.91 Status: Chronic (3) DM (diabetes mellitus) ICD Code: E11.9 Status: Chronic Assessment and Plan Mr. Flores is a 60 year-old male with past medical history of paroxysmal A. fib , hypertension, stage III non-Hodgkin's lymphoma status post chemotherapy who came into the hospital with altered mental status. 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 On Keppra 500mg BID - 750 twice a day home prior to arrival. On Paxil 20 by mouth daily for depression. On Ativan 0.5 mg every 4 hours when necessary anxiety. On acetaminophen with codeine for pain scale of 2-10. Vent dependent respiratory failure, currently trached and on t-piece Right upper lobe/right middle lobe pulmonary nodules - outpatient CT scan without contrast in 6 months to follow-up Continue with oxygen keep sat >92%. Trach changed to size #6 XLT on 01/09 Duo nebs every 6 hours Leave on TP 10/02 as tolerated Pulm toilet, trach care 01/09 CTA chest: No PE, bilateral lower lobe infiltrates. 4 mm right upper lobe/5 mm right middle lobe nodule.. Pulm is following - Dr. Taylor History of paroxysmal atrial fibrillation currently in sinus tachycardia Hypertension Dyslipidemia Monitor HR and BP keep MAP>65mmHg. O Continue ASA 325mg daily Cardizem 30mg QID Previously on sotalol 40 mg a night for paroxysmal fibrillation. Mild protein calorie malnutrition Gastroesophageal reflux disease Diarrhea, negative for C. difficile. Improved On Prevacid 30 mg Q12, on tube feeds(Jevity 1.5 at 55 ml/hr) Continue bowel regimen with hold parameters, Lactinex and Imodium. Klebsiella/Pseudomonas/staph aureus HCAP PSAE UTI S/p Cefepime. Monitor for signs of infections. strep pneumonia and Legionella urinary Ag is negative C-diff PCR negative on 01/13 01/09 BC : Staph Epi, Urine cx: Pseudomonas, Sputum cx: Pseudomonas, kleb, Staph. Patient was pancultured on 01/19 (Blood, sputum, urine) NGTD in urine and blood. Sputum + for pseudomonas. Microcytic anemia Stage III a non-Hodgkin's lymphoma - s/p chemotherapy 2014 Monitor CBC No further treatment recommended per heme oncology at this time. History of diabetes mellitus. A1c 5.5. Fingersticks have been stable. On metformin 500 daily at home. Stage IV decubitus ulcers -Dressing changes daily. Wound care last saw patient on 01/17/17, no new recommendations continue packing with Betadine moistened rolled Janis and covered with ABD pad and paper tape to secure. GI prophylaxis with Prevacid 30 mg Q12 DVT prophylaxis: SCD and Heparin SQ Discharge Planning Last CM note: 02/03/17 I MET WITH THIS PTS SPOUSE AND GRANDDAUGHTER TODAY AND I UPDATED THEM ON THE STATUS OF THE SNF PLACEMENT.THIS PT IS BEING FOLLOWED BY SOURAV Pacheco OF [facility] [phone]. SOURAV HAS BEEN CONTACTED BY [employer] AND SOURAV TO ASSIST WITH WITH PLACEMENT OF THIS PT AT [facility] Problem Qualifiers (1) CVA (cerebral vascular accident): (2) DM (diabetes mellitus): Qualified Code: E11.9 - Type 2 diabetes mellitus without complications Haley Seymour Feb 05, 2017 09:36
[2017-02-05] MEDS: SODIUM CHLORIDE 0.65% NASAL SPRAY 45 ML BTL NASAL SCH ×2 (09:37→20:44)
[2017-02-05] MEDS: NYSTATIN 100,000 U/GM PWD 15 GM BTL TOPICAL SCH ×2 (09:37→20:44)
[2017-02-05] MEDS: ARTIFICIAL TEARS OPTH SOLN 15 ML BTL EACH EYE SCH ×2 (09:37→20:44)
[2017-02-05] MEDS: BACITRACIN TOP OINT 15 GM TUBE TOP SCH ×2 (09:38→20:42)
[2017-02-05] MEDS: SENNOSIDES SYRUP 8.8 MG/5 ML CUP PEG SCH (13:01)
--- NOTE | 2017-02-05 15:04 | HHI.PR ---
Subjective Remarks ass OPENS EYES NO DISTRESS SAT 96% PULSE 82 Objective Vital Signs Date Time Temp Pulse Resp B/P Pulse Ox O2 Delivery O2 Flow Rate FiO2 02/05/17 12:00 97.0 89 17 129/77 100 02/05/17 10:39 99 T-piece 5.00 28 02/05/17 08:00 96.8 93 16 129/71 100 02/05/17 08:00 100 Trach Collar 7.00 02/05/17 04:58 Trach Collar 7.00 02/05/17 00:00 97.5 89 20 119/74 98 02/04/17 21:50 100 Trach Collar 7.00 02/04/17 20:00 97.6 92 20 126/79 100 I/O 02/04/17 02/04/17 02/04/17 02/05/17 02/05/17 02/05/17 06:59 14:59 22:59 06:59 14:59 22:59 Intake Total 494 ml 473 ml 619 ml 0 ml Output Total 400 ml 355.0 ml 800 ml 250 ml Balance 94 ml 118.0 ml -181 ml -250 ml Intake Oral 0 ml 0 ml 0 ml IV Total 494 ml 0 ml Tube Feeding 473 ml 359 ml Tube Irrigant 260 ml Output Urine Total 400 ml 350 ml 800 ml 250 ml Tube Feeding Residual Discard 5.0 ml # Bowel Movements 1 2 1 2 Result Diagram: 02/05/17 0629 02/05/17 0629 Procedures 01/02/16 PEG placement 01/02/16 tracheostomy 07/22/2016 Wide excision of sacral skin wound, biopsy of the cavity lining and debridement. PEG tube replacement 07/29/16 Objective Remarks GENERAL: SKIN: Warm and dry. HEAD: Atraumatic. Normocephalic. EYES: Pupils equal and round. No scleral icterus. No injection or drainage. ENT: No nasal bleeding or discharge. Mucous membranes pink and moist. NECK: Trachea midline. No JVD. CARDIOVASCULAR: Regular rate and rhythm. RESPIRATORY: No accessory muscle use. Clear to auscultation. Breath sounds equal bilaterally. GASTROINTESTINAL: Abdomen soft, non-tender, nondistended. Hepatic and splenic margins not palpable. MUSCULOSKELETAL: Extremities without clubbing, cyanosis, or edema. No obvious deformities. NEUROLOGICAL: Awake and alert. No obvious cranial nerve deficits. Motor grossly within normal limits. Five out of 5 muscle strength in the arms and legs. Normal speech. PSYCHIATRIC: Appropriate mood and affect; insight and judgment normal. Laboratory Tests Test 01/05/17 01/06/17 08:35 08:41 Red Blood Count 4.43 MIL/MM3 (4.50-5.90) Hemoglobin 9.9 GM/DL (13.0-17.0) Hematocrit 32.0 % (39.0-51.0) Mean Corpuscular Volume 72.1 FL (80.0-100.0) Mean Corpuscular Hemoglobin 22.3 PG (27.0-34.0) Mean Corpuscular Hemoglobin 30.9 % Concent (32.0-36.0) Red Cell Distribution Width 19.9 % (11.6-17.2) Sodium Level 134 MEQ/L 133 MEQ/L (136-145) (136-145) Random Glucose 136 MG/DL 132 MG/DL (74-106) (74-106) Creatinine 0.59 MG/DL (0.60-1.30) GENERAL: SKIN: Warm and dry. HEAD: Atraumatic. Normocephalic. EYES: Pupils equal and round. No scleral icterus. No injection or drainage. ENT: No nasal bleeding or discharge. Mucous membranes pink and moist. NECK: Trachea midline. No JVD. TRACH. [place] CARDIOVASCULAR: Regular rate and rhythm. RESPIRATORY: No accessory muscle use. Clear to auscultation. Breath sounds equal bilaterally. GASTROINTESTINAL: Abdomen soft, non-tender, nondistended. Hepatic and splenic margins not palpable. MUSCULOSKELETAL: Extremities without clubbing, cyanosis, or edema. No obvious deformities. NEUROLOGICAL: Awake and alert. No obvious cranial nerve deficits. Motor grossly within normal limits. Five out of 5 muscle strength in the arms and legs. Normal speech. PSYCHIATRIC: Appropriate mood and affect; insight and judgment normal. Assessment and Plan Assessment and Plan impression respiratory failure CVA S/P TRACHEOSTOMY SEPSIS PLAN O2 NEEDED PULM. TOILET ANTIBIOTICS PER ID [place] Brandon Moy MD Feb 05, 2017 15:04
[2017-02-05] MEDS: PARoxetine HCL SUSP 20 MG/10 ML UDC PEG SCH (17:58)
[2017-02-06] VITALS (7 sets, daily range): BP systolic 99–126; BP diastolic 70–76; PULSE 80–109; RESP 16–20; TEMP 95.4–97.7; O2SAT 98–100
[2017-02-06] MEDS: HEPARIN SODIUM - SQ 10,000 UNITS/ML VIAL SQ SCH ×3 (04:53→20:52)
[2017-02-06] MEDS: ACETIC ACID 0.25% SOLN 1000 ML IRR BTL IRRIGATION SCH ×3 (04:54→21:19)
[2017-02-06] MEDS: LANSOPRAZOLE SOLUTAB 30 MG TAB NG SCH ×2 (08:32→20:51)
[2017-02-06] MEDS: LACTOBACILLUS ACIDOPHILUS 1 GM PACKET G-TUBE SCH ×3 (08:32→18:39)
[2017-02-06] MEDS: ASPIRIN 325 MG TAB TUBE SCH (08:32)
[2017-02-06] MEDS: ARTIFICIAL TEARS OPTH SOLN 15 ML BTL EACH EYE SCH ×2 (08:34→20:54)
[2017-02-06] MEDS: SODIUM CHLORIDE 0.65% NASAL SPRAY 45 ML BTL NASAL SCH ×2 (08:34→20:54)
[2017-02-06] MEDS: BACITRACIN TOP OINT 15 GM TUBE TOP SCH ×2 (08:35→20:55)
[2017-02-06] MEDS: NYSTATIN 100,000 U/GM PWD 15 GM BTL TOPICAL SCH ×2 (08:36→21:19)
[2017-02-06] MEDS: DILTIAZEM HCL 30 MG TAB PEG SCH ×4 (08:36→21:39)
[2017-02-06] MEDS: levETIRAcetam 500 MG/5 ML UDC TUBE SCH ×2 (08:37→20:52)
--- NOTE | 2017-02-06 09:34 | HHI.PR ---
Subjective Remarks Patient nonverbal. She is discussed. She had Some Concerns about Redness around This PEG Tube, but This Is Representing Bruising Rather Than Infection. She also states that his urine has been dark, but is not particularly. No need to increase hydration at this point. Objective Vital Signs Date Time Temp Pulse Resp B/P Pulse Ox O2 Delivery O2 Flow Rate FiO2 02/06/17 08:00 95.9 94 17 126/76 98 02/06/17 00:00 97.7 109 20 111/72 98 02/05/17 20:38 99 T-Piece 7.00 35 Humidified 02/05/17 20:00 97.9 95 20 118/75 99 02/05/17 17:57 99 T-piece 6.00 35 02/05/17 16:00 97.2 93 16 122/72 99 02/05/17 12:00 97.0 89 17 129/77 100 02/05/17 10:39 99 T-piece 5.00 28 I/O 02/05/17 02/05/17 02/05/17 02/06/17 02/06/17 02/06/17 07:00 15:00 23:00 07:00 15:00 23:00 Intake Total 619 ml 756 ml 468 ml 678 ml Output Total 450 ml 400 ml 350 ml 250 ml Balance 169 ml 356 ml 118 ml 428 ml Intake Oral 0 ml Tube Feeding 359 ml 576 ml 308 ml 498 ml Tube Irrigant 260 ml Other 180 ml 160 ml 180 ml Output Urine Total 450 ml 400 ml 350 ml 250 ml # Bowel Movements 1 2 1 1 Result Diagram: 02/05/17 0629 02/05/17 0629 Procedures 01/02/16 PEG placement 01/02/16 tracheostomy 07/22/2016 Wide excision of sacral skin wound, biopsy of the cavity lining and debridement. PEG tube replacement 07/29/16 Objective Remarks GENERAL: NAD, AOx0 SKIN: Warm and dry. HEAD: Normocephalic. EYES: No scleral icterus. No injection or drainage. NECK: Supple, tracheostomy in place and patent CARDIOVASCULAR: Regular rate and rhythm without murmurs, gallops, or rubs. RESPIRATORY: Breath sounds equal bilaterally. No accessory muscle use. GASTROINTESTINAL: Abdomen soft, non-tender, nondistended. MUSCULOSKELETAL: No cyanosis, or edema. NEURO: Unresponsive. Global and Extreme cognitive deficits, no meaningful motor function. A/P Problem List: (1) Feeding tube dysfunction ICD Code: T85.598A (2) DM (diabetes mellitus) ICD Code: E11.9 (3) CVA (cerebral vascular accident) ICD Code: I63.9 (4) A-fib ICD Code: I48.91 Assessment and Plan Assessment and plan 61-year-old male status post severe CVA with paraplegia Global apraxia. Continue to follow urine output and concentration of urine visually. Follow vital signs for any evidence of infection. 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 Keppra continued (for seizures) Supportive Care intermediate care needed for chronic and profound neurologic deficits. Recovery is not expected to occur. 10/02 care will be needed, so home health and hospice are not good options for him Chronic respiratory failure This is secondary to CVA Tracheostomy in place Continue Levsin as needed Pulmonology following As needed oxygen FEN Damaged PEG tube Replacement pending for tomorrow. Continue tube feeds with functional port Atrial fibrillation Cardizem Metoprolol Aspirin Prophylactic heparin Follow heart rate History of non-Hodgkin's lymphoma Follow clinically Diabetes mellitus Follow blood sugars Patient is on tube feeds, use diabetic tube feeds Continue Levemir Sliding scale insulin Decubitus ulcer stage IV: Wound care Frequent turns Colostomy declined by family (inability to divert feces in this chronic setting increases risks with ulcer and for recurrence of ulcers) Monitor for pain When necessary [place] for pain Chronic Arevalo Follow for UTIs Hx of Gastric Ulcer Follow clinically PPI Monitor H/H intermittantly Constipation Continue lactulose DVT prophylaxis Prophylactic heparin Discharge planning Case management following No payor source available Accepting facility not yet available Problem Qualifiers (1) DM (diabetes mellitus): Qualified Code: E11.9 - Type 2 diabetes mellitus without complications (2) CVA (cerebral vascular accident): Moises Pruitt MD Feb 06, 2017 9:34 am
--- NOTE | 2017-02-06 15:19 | HHI.PR ---
Subjective Remarks ass OPENS EYES NO DISTRESS SAT 96% PULSE 82 Objective Vital Signs Date Time Temp Pulse Resp B/P Pulse Ox O2 Delivery O2 Flow Rate FiO2 02/06/17 14:11 91 17 120/75 100 02/06/17 12:00 95.4 92 17 99/70 100 02/06/17 08:20 98 Trach Collar 7.00 35 T-Piece 02/06/17 08:00 95.9 94 17 126/76 98 02/06/17 00:00 97.7 109 20 111/72 98 02/05/17 20:38 99 T-Piece 7.00 35 Humidified 02/05/17 20:00 97.9 95 20 118/75 99 02/05/17 17:57 99 T-piece 6.00 35 02/05/17 16:00 97.2 93 16 122/72 99 I/O 02/05/17 02/05/17 02/05/17 02/06/17 02/06/17 02/06/17 06:59 14:59 22:59 06:59 14:59 22:59 Intake Total 619 ml 756 ml 468 ml 678 ml 0 ml Output Total 800 ml 400 ml 600 ml 900 ml Balance -181 ml 356 ml 468 ml 78 ml -900 ml Intake Oral 0 ml 0 ml Tube Feeding 359 ml 576 ml 308 ml 498 ml Tube Irrigant 260 ml Other 180 ml 160 ml 180 ml Output Urine Total 800 ml 400 ml 600 ml 900 ml # Bowel Movements 1 2 1 1 1 Result Diagram: 02/05/17 0629 02/05/17 0629 Procedures 01/02/16 PEG placement 01/02/16 tracheostomy 07/22/2016 Wide excision of sacral skin wound, biopsy of the cavity lining and debridement. PEG tube replacement 07/29/16 Objective Remarks GENERAL: SKIN: Warm and dry. HEAD: Atraumatic. Normocephalic. EYES: Pupils equal and round. No scleral icterus. No injection or drainage. ENT: No nasal bleeding or discharge. Mucous membranes pink and moist. NECK: Trachea midline. No JVD. CARDIOVASCULAR: Regular rate and rhythm. RESPIRATORY: No accessory muscle use. Clear to auscultation. Breath sounds equal bilaterally. GASTROINTESTINAL: Abdomen soft, non-tender, nondistended. Hepatic and splenic margins not palpable. MUSCULOSKELETAL: Extremities without clubbing, cyanosis, or edema. No obvious deformities. NEUROLOGICAL: Awake and alert. No obvious cranial nerve deficits. Motor grossly within normal limits. Five out of 5 muscle strength in the arms and legs. Normal speech. PSYCHIATRIC: Appropriate mood and affect; insight and judgment normal. Laboratory Tests Test 01/05/17 01/06/17 08:35 08:41 Red Blood Count 4.43 MIL/MM3 (4.50-5.90) Hemoglobin 9.9 GM/DL (13.0-17.0) Hematocrit 32.0 % (39.0-51.0) Mean Corpuscular Volume 72.1 FL (80.0-100.0) Mean Corpuscular Hemoglobin 22.3 PG (27.0-34.0) Mean Corpuscular Hemoglobin 30.9 % Concent (32.0-36.0) Red Cell Distribution Width 19.9 % (11.6-17.2) Sodium Level 134 MEQ/L 133 MEQ/L (136-145) (136-145) Random Glucose 136 MG/DL 132 MG/DL (74-106) (74-106) Creatinine 0.59 MG/DL (0.60-1.30) GENERAL: SKIN: Warm and dry. HEAD: Atraumatic. Normocephalic. EYES: Pupils equal and round. No scleral icterus. No injection or drainage. ENT: No nasal bleeding or discharge. Mucous membranes pink and moist. NECK: Trachea midline. No JVD. TRACH. [place] CARDIOVASCULAR: Regular rate and rhythm. RESPIRATORY: No accessory muscle use. Clear to auscultation. Breath sounds equal bilaterally. GASTROINTESTINAL: Abdomen soft, non-tender, nondistended. Hepatic and splenic margins not palpable. MUSCULOSKELETAL: Extremities without clubbing, cyanosis, or edema. No obvious deformities. NEUROLOGICAL: Awake and alert. No obvious cranial nerve deficits. Motor grossly within normal limits. Five out of 5 muscle strength in the arms and legs. Normal speech. PSYCHIATRIC: Appropriate mood and affect; insight and judgment normal. Assessment and Plan Assessment and Plan impression respiratory failure CVA S/P TRACHEOSTOMY SEPSIS PLAN O2 NEEDED PULM. TOILET ANTIBIOTICS PER ID [place] poor Brandon Taylor MD Feb 06, 2017 15:19
[2017-02-06] MEDS: SENNOSIDES SYRUP 8.8 MG/5 ML CUP PEG SCH (16:00)
[2017-02-06] MEDS: ACETAMINOPHEN/CODEINE ELIX 120 MG/12 MG/5 ML CUP G-TUBE PRN (17:05)
[2017-02-06] MEDS: PARoxetine HCL SUSP 20 MG/10 ML UDC PEG SCH (18:39)
--- NOTE | 2017-02-06 20:10 | MB ---
cc: BRUCE DOMINGUEZ DPM DATE OF CONSULTATION: 02/06/2017 REASON FOR CONSULTATION Right hallux ingrown toenail, paronychia. HISTORY OF PRESENT ILLNESS This is a 61-year-old male with obvious altered mental status and a significant past medical history and paraplegia. Currently I am seeing the patient at bedside with his mother and there is a history of an ingrown toenail on the right side and they wished for this to be addressed. The patient of note does have a history of a wide excision of a sacral wound, currently he has a PEG and a tracheostomy placed. PHYSICAL EXAMINATION This is a nonverbal gentleman who is not moving his extremities. His eyes are open and they seem to be moving spontaneously however not making eye contact. FOCUSED LOWER EXTREMITY EXAMINATION: The feet are in a downward position with obvious equinus. The feet appear to have good circulation. Pedal pulses were palpable. Sensation is not intact to noxious stimuli. There is no muscle strength noted. On the right hallux, there is a medial ingrown toenail with evidence of a paronychia with mild redness. There is no hyperpigmented lesion noted. LABORATORY FINDINGS Most current 02/05, white blood cell 5.5, hemoglobin and hematocrit 29 and 72, platelet count is 227. ASSESSMENT AND PLAN Right hallux paronychia. The patient needs a bedside procedure. I explained in great detail to the mother of a bedside incision and drainage with partial nail avulsion. She agreed and consented. Partial nail avulsion performed bedside after prep and sterile bone cutter used to removed incurvated nail and granulation tissue. Thank you for this consultation. LOLLY Selby/MILVIA /3:58 PM /7:52 PM GENNARO
[2017-02-07] VITALS (8 sets, daily range): BP systolic 106–121; BP diastolic 56–76; PULSE 74–92; RESP 16–20; TEMP 95.2–97.1; O2SAT 95–100
[2017-02-07] MEDS: HEPARIN SODIUM - SQ 10,000 UNITS/ML VIAL SQ SCH ×3 (06:20→21:21)
[2017-02-07] MEDS: ACETIC ACID 0.25% SOLN 1000 ML IRR BTL IRRIGATION SCH ×3 (06:21→21:21)
--- NOTE | 2017-02-07 08:20 | HHI.PR ---
Subjective Remarks ass OPENS EYES NO DISTRESS SAT 96% PULSE 82 Objective Vital Signs Date Time Temp Pulse Resp B/P Pulse Ox O2 Delivery O2 Flow Rate FiO2 02/07/17 08:00 96.3 89 17 118/76 99 02/07/17 07:10 Trach Collar T-Piece 02/07/17 01:18 97 T-piece 28 02/07/17 00:00 97.1 86 20 117/56 100 02/06/17 20:48 99 T-Piece 7.00 35 Humidified 02/06/17 20:00 96.2 80 18 118/76 100 02/06/17 18:38 87 16 115/70 99 02/06/17 17:16 99 Trach Collar 7.00 35 T-Piece 02/06/17 16:00 97.7 86 17 107/72 98 02/06/17 14:11 91 17 120/75 100 02/06/17 12:00 95.4 92 17 99/70 100 02/06/17 08:20 98 Trach Collar 7.00 35 T-Piece I/O 02/06/17 02/06/17 02/06/17 02/07/17 02/07/17 02/07/17 07:00 15:00 23:00 07:00 15:00 23:00 Intake Total 678 ml 981 ml 329 ml 580 ml Output Total 250 ml 900 ml 850 ml 400 ml Balance 428 ml 81 ml -521 ml 580 ml -400 ml Intake Oral 0 ml IV Total 0 ml Tube Feeding 498 ml 581 ml 329 ml 400 ml Other 180 ml 400 ml 180 ml Output Urine Total 250 ml 900 ml 850 ml 400 ml # Bowel Movements 1 1 1 Result Diagram: 02/05/17 0629 02/05/17 0629 Procedures 01/02/16 PEG placement 01/02/16 tracheostomy 07/22/2016 Wide excision of sacral skin wound, biopsy of the cavity lining and debridement. PEG tube replacement 07/29/16 Objective Remarks GENERAL: SKIN: Warm and dry. HEAD: Atraumatic. Normocephalic. EYES: Pupils equal and round. No scleral icterus. No injection or drainage. ENT: No nasal bleeding or discharge. Mucous membranes pink and moist. NECK: Trachea midline. No JVD. CARDIOVASCULAR: Regular rate and rhythm. RESPIRATORY: No accessory muscle use. Clear to auscultation. Breath sounds equal bilaterally. GASTROINTESTINAL: Abdomen soft, non-tender, nondistended. Hepatic and splenic margins not palpable. MUSCULOSKELETAL: Extremities without clubbing, cyanosis, or edema. No obvious deformities. NEUROLOGICAL: Awake and alert. No obvious cranial nerve deficits. Motor grossly within normal limits. Five out of 5 muscle strength in the arms and legs. Normal speech. PSYCHIATRIC: Appropriate mood and affect; insight and judgment normal. Laboratory Tests Test 01/05/17 01/06/17 08:35 08:41 Red Blood Count 4.43 MIL/MM3 (4.50-5.90) Hemoglobin 9.9 GM/DL (13.0-17.0) Hematocrit 32.0 % (39.0-51.0) Mean Corpuscular Volume 72.1 FL (80.0-100.0) Mean Corpuscular Hemoglobin 22.3 PG (27.0-34.0) Mean Corpuscular Hemoglobin 30.9 % Concent (32.0-36.0) Red Cell Distribution Width 19.9 % (11.6-17.2) Sodium Level 134 MEQ/L 133 MEQ/L (136-145) (136-145) Random Glucose 136 MG/DL 132 MG/DL (74-106) (74-106) Creatinine 0.59 MG/DL (0.60-1.30) GENERAL: SKIN: Warm and dry. HEAD: Atraumatic. Normocephalic. EYES: Pupils equal and round. No scleral icterus. No injection or drainage. ENT: No nasal bleeding or discharge. Mucous membranes pink and moist. NECK: Trachea midline. No JVD. TRACH. [place] CARDIOVASCULAR: Regular rate and rhythm. RESPIRATORY: No accessory muscle use. Clear to auscultation. Breath sounds equal bilaterally. GASTROINTESTINAL: Abdomen soft, non-tender, nondistended. Hepatic and splenic margins not palpable. MUSCULOSKELETAL: Extremities without clubbing, cyanosis, or edema. No obvious deformities. NEUROLOGICAL: Awake and alert. No obvious cranial nerve deficits. Motor grossly within normal limits. Five out of 5 muscle strength in the arms and legs. Normal speech. PSYCHIATRIC: Appropriate mood and affect; insight and judgment normal. Assessment and Plan Assessment and Plan impression respiratory failure CVA S/P TRACHEOSTOMY PLAN O2 NEEDED PULM. TOILET ANTIBIOTICS PER ID [place] Brandon Moy MD Feb 07, 2017 08:20
[2017-02-07] MEDS: NYSTATIN 100,000 U/GM PWD 15 GM BTL TOPICAL SCH ×2 (09:00→21:00)
[2017-02-07] MEDS: levETIRAcetam 500 MG/5 ML UDC TUBE SCH ×2 (09:39→21:20)
[2017-02-07] MEDS: LANSOPRAZOLE SOLUTAB 30 MG TAB NG SCH ×2 (09:41→21:20)
[2017-02-07] MEDS: ASPIRIN 325 MG TAB TUBE SCH (09:41)
[2017-02-07] MEDS: DILTIAZEM HCL 30 MG TAB PEG SCH ×4 (09:41→21:20)
[2017-02-07] MEDS: SODIUM CHLORIDE 0.65% NASAL SPRAY 45 ML BTL NASAL SCH ×2 (09:42→21:00)
[2017-02-07] MEDS: ARTIFICIAL TEARS OPTH SOLN 15 ML BTL EACH EYE SCH ×2 (09:43→21:00)
[2017-02-07] MEDS: BACITRACIN TOP OINT 15 GM TUBE TOP SCH ×2 (09:43→21:00)
[2017-02-07] MEDS: LACTOBACILLUS ACIDOPHILUS 1 GM PACKET G-TUBE SCH ×3 (09:45→18:40)
--- NOTE | 2017-02-07 14:05 | HHI.PR ---
Subjective Remarks Follow up respiratory failure and diarrhea. Patient seen and examined, lying in bed. Family at bedside. No discomfort noted. Spoke to RN, no acute events overnight. Afebrile. Tolerating TF. Tracking with eyes. Does not follow commands. VSS. Objective Vitals Vital Signs Date Time Temp Pulse Resp B/P Pulse Ox O2 Delivery O2 Flow Rate FiO2 02/07/17 12:00 95.5 88 16 110/67 95 02/07/17 08:00 96.3 89 17 118/76 99 02/07/17 07:10 Trach Collar T-Piece 02/07/17 01:18 97 T-piece 28 02/07/17 00:00 97.1 86 20 117/56 100 02/06/17 20:48 99 T-Piece 7.00 35 Humidified 02/06/17 20:00 96.2 80 18 118/76 100 02/06/17 18:38 87 16 115/70 99 02/06/17 17:16 99 Trach Collar 7.00 35 T-Piece 02/06/17 16:00 97.7 86 17 107/72 98 02/06/17 14:11 91 17 120/75 100 I/O 02/06/17 02/06/17 02/06/17 02/07/17 02/07/17 02/07/17 06:59 14:59 22:59 06:59 14:59 22:59 Intake Total 678 ml 781 ml 529 ml 580 ml Output Total 600 ml 900 ml 850 ml 400 ml Balance 78 ml -119 ml -321 ml 580 ml -400 ml Intake Oral 0 ml IV Total 0 ml Tube Feeding 498 ml 581 ml 329 ml 400 ml Other 180 ml 200 ml 200 ml 180 ml Output Urine Total 600 ml 900 ml 850 ml 400 ml # Bowel Movements 1 1 1 Result Diagram: 02/05/17 0629 02/05/17 0629 Imaging Last Impressions Tube Change 01/24/17 0000 Signed Impressions: Service Date/Time: Tuesday, January 24, 2017 17:10 - CONCLUSION: Uncomplicated gastrojejunostomy tube exchange as above. Scott Griffin MD Chest X-Ray 01/20/17 0600 Signed Impressions: Service Date/Time: Friday, January 20, 2017 04:22 - CONCLUSION: 1. Bibasilar patchy densities, unchanged. 2. Tracheostomy tube unchanged. Mikie Vargas MD Head CT 01/09/17 0000 Signed Impressions: Service Date/Time: December 17:43 - CONCLUSION: 1. No acute hemorrhage or mass effect. 2. 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 3. Atrophy. Gerald Mukherjee MD CT Angiography 01/09/17 0000 Signed Impressions: Service Date/Time: December 17:49 - CONCLUSION: 1. No evidence of pulmonary emboli. 2. Patchy consolidation in both posterior lower lobes right greater than left. This could represent pneumonia. 3. 2 small noncalcified pulmonary nodules which are nonspecific finding. Short-term CT followup is recommended beginning in 6 months with a noncontrast outpatient CT. Gerald Mukherjee MD Tube Check 12/04/16 0000 Signed Impressions: Service Date/Time: Sunday, December 04, 2016 17:58 - CONCLUSION: Uncomplicated tube injection as above. the tube is in good position and functions normally. Moises Ramírez MD Abdomen X-Ray 08/31/16 0000 Signed Impressions: Service Date/Time: Wednesday, August 31, 2016 16:36 - CONCLUSION: 1. No acute findings. Mild constipation. Durga Dotson MD Abdomen/Pelvis CT 04/12/16 0000 Signed Impressions: Service Date/Time: Tuesday, April 12, 2016 20:52 - CONCLUSION: 1. 6.4 cm necrotic mass or abscess in the soft tissues posteriorly just below the sacrum associated with some bony destructive change of the lower most sacrum and coccyx with inflammatory changes extending into the ischiorectal fossa and into the presacral retroperitoneum predominantly on the left side. There is associated fairly marked mural thickening of the anal verge and rectum. 2. There is gastrostomy and Arevalo catheter present. Stable abdominal aortic aneurysm. Durga Dotson MD Head Magnetic Resonance Angiography 03/05/16 0000 Signed Impressions: Service Date/Time: Saturday, March 05, 2016 09:26 - CONCLUSION: Persistent high-grade subtotal occlusive stenotic lesions in the distal right vertebral artery and proximal basilar artery with significant improvement in flow and recanalization following initial presentation of thrombosis. Stable interstitial circulation without significant stenosis. 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 There is decreasing restricted diffusion and increasing loss of volume characteristic of a subacute to chronic infarct. No evidence of acute infarct, acute hemorrhage mass or edema. Ernesto Kulkarni MD Neck Magnetic Resonance Angiography 12/22/15 1445 Signed Impressions: Service Date/Time: Tuesday, December 22, 2015 09:22 - CONCLUSION: Variant origin of the left vertebral artery from the aortic arch. No evidence of carotid stenosis. Glen Zamora MD Head/Brain Mag Res Venography 12/22/15 0000 Signed Impressions: Service Date/Time: Tuesday, December 22, 2015 09:22 - CONCLUSION: Normal MRV. Jonel Jones Jr., MD Objective Remarks GENERAL: Non-verbal, lethargic, opens eyes to voice and command, tracking people in room. Not in acute distress. SKIN: Warm and dry. HEENT: Normocephalic. Pupils nonicteric. Nose without bleeding. Airway patent. NECK: Supple, trachea midline. T-tube in place, site clean, dry, intact. No JVD. CARDIOVASCULAR: Regular rate and rhythm. No murmur appreciated. RESPIRATORY: Breath sounds equal bilaterally. No accessory muscle use. Trach tube in place. Bedside monitor indicated oxygen saturation was 98%. GASTROINTESTINAL: Abdomen soft, non-tender, nondistended. GJ tube noted, area around insertion was clean, dry, dressing intact. MUSCULOSKELETAL: No cyanosis, or edema. PSYCHIATRIC: Pt non-verbal, he appeared calm and not in distress. Procedures 07/22/2016 Wide excision of sacral skin wound, biopsy of the cavity lining and debridement. PEG removal and Gj tube placement 07/29/16 VAC changes- M-W-F 10/23/16, 11/18, 12/31- GJ tube replacement 01/02/16 PEG placement 01/02/16 tracheostomy A/P Problem List: (1) CVA (cerebral vascular accident) ICD Code: I63.9 Status: Acute (2) A-fib ICD Code: I48.91 Status: Chronic (3) DM (diabetes mellitus) ICD Code: E11.9 Status: Chronic Assessment and Plan Mr. Flores is a 60 year-old male with past medical history of paroxysmal A. fib , hypertension, stage III non-Hodgkin's lymphoma status post chemotherapy who came into the hospital with altered mental status. 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 On Keppra 500mg BID - 750 twice a day home prior to arrival. On Paxil 20 by mouth daily for depression. On Ativan 0.5 mg every 4 hours when necessary anxiety. On acetaminophen with codeine for pain scale of 2-10. Vent dependent respiratory failure, currently trached and on t-piece Right upper lobe/right middle lobe pulmonary nodules - outpatient CT scan without contrast in 6 months to follow-up Continue with oxygen keep sat >92%. Trach changed to size #6 XLT on 01/09 Duo nebs every 6 hours Leave on TP 10/02 as tolerated Pulm toilet, trach care 01/09 CTA chest: No PE, bilateral lower lobe infiltrates. 4 mm right upper lobe/5 mm right middle lobe nodule.. Pulm is following - Dr. Taylor Right hallux ingrown toenail, paronychia - [employer] Sales Representative has seen patient. I & D with partial nail avulsion performed at bedside 02/06/17. Dressing c/d/i. - Continue to monitor. History of paroxysmal atrial fibrillation currently in sinus tachycardia Hypertension Dyslipidemia Monitor HR and BP keep MAP>65mmHg. O Continue ASA 325mg daily Cardizem 30mg QID Previously on sotalol 40 mg a night for paroxysmal fibrillation. Mild protein calorie malnutrition Gastroesophageal reflux disease Diarrhea, negative for C. difficile. Improved On Prevacid 30 mg Q12, on tube feeds(Jevity 1.5 at 55 ml/hr) Continue bowel regimen with hold parameters, Lactinex and Imodium. Klebsiella/Pseudomonas/staph aureus HCAP PSAE UTI S/p Cefepime. Monitor for signs of infections. strep pneumonia and Legionella urinary Ag is negative C-diff PCR negative on 01/13 01/09 BC : Staph Epi, Urine cx: Pseudomonas, Sputum cx: Pseudomonas, kleb, Staph. Patient was pancultured on 01/19 (Blood, sputum, urine) NGTD in urine and blood. Sputum + for pseudomonas. Microcytic anemia Stage III a non-Hodgkin's lymphoma - s/p chemotherapy 2014 Monitor CBC No further treatment recommended per heme oncology at this time. History of diabetes mellitus. A1c 5.5. Fingersticks have been stable. On metformin 500 daily at home. Stage IV decubitus ulcers -Dressing changes daily. Wound care last saw patient on 01/17/17, no new recommendations continue packing with Betadine moistened rolled Janis and covered with ABD pad and paper tape to secure. GI prophylaxis with Prevacid 30 mg Q12 DVT prophylaxis: SCD and Heparin SQ Discharge Planning Last CM note: 02/03/17 I MET WITH THIS PTS SPOUSE AND GRANDDAUGHTER TODAY AND I UPDATED THEM ON THE STATUS OF THE SNF PLACEMENT.THIS PT IS BEING FOLLOWED BY SOURAV Pacheco OF [facility] [phone]. SOURAV HAS BEEN CONTACTED BY [employer]TY THE BREAST SPLITTER AND SOURAV TO ASSIST WITH WITH PLACEMENT OF THIS PT AT [facility] Problem Qualifiers (1) CVA (cerebral vascular accident): (2) DM (diabetes mellitus): Qualified Code: E11.9 - Type 2 diabetes mellitus without complications Haley Seymour Feb 07, 2017 14:05
[2017-02-07] MEDS: SENNOSIDES SYRUP 8.8 MG/5 ML CUP PEG SCH (17:13)
[2017-02-07] MEDS: PARoxetine HCL SUSP 20 MG/10 ML UDC PEG SCH (18:41)
[2017-02-08] VITALS (7 sets, daily range): BP systolic 110–123; BP diastolic 64–78; PULSE 87–99; RESP 16–20; TEMP 97.3–98.9; O2SAT 93–99
[2017-02-08] MEDS: HEPARIN SODIUM - SQ 10,000 UNITS/ML VIAL SQ SCH ×3 (06:00→21:29)
[2017-02-08] MEDS: ACETIC ACID 0.25% SOLN 1000 ML IRR BTL IRRIGATION SCH ×3 (06:00→21:41)
[2017-02-08] MEDS: ASPIRIN 325 MG TAB TUBE SCH (08:03)
[2017-02-08] MEDS: levETIRAcetam 500 MG/5 ML UDC TUBE SCH ×2 (08:03→21:00)
[2017-02-08] MEDS: LANSOPRAZOLE SOLUTAB 30 MG TAB NG SCH ×2 (08:03→21:00)
[2017-02-08] MEDS: LACTOBACILLUS ACIDOPHILUS 1 GM PACKET G-TUBE SCH ×3 (08:03→17:32)
[2017-02-08] MEDS: DILTIAZEM HCL 30 MG TAB PEG SCH ×4 (08:03→21:00)
[2017-02-08] MEDS: ARTIFICIAL TEARS OPTH SOLN 15 ML BTL EACH EYE SCH ×2 (08:04→21:31)
[2017-02-08] MEDS: SODIUM CHLORIDE 0.65% NASAL SPRAY 45 ML BTL NASAL SCH ×2 (08:04→21:31)
[2017-02-08] MEDS: BACITRACIN TOP OINT 15 GM TUBE TOP SCH ×2 (08:05→21:31)
[2017-02-08] MEDS: NYSTATIN 100,000 U/GM PWD 15 GM BTL TOPICAL SCH ×2 (08:05→21:00)
[2017-02-08] MEDS: SENNOSIDES SYRUP 8.8 MG/5 ML CUP PEG SCH (16:00)
--- NOTE | 2017-02-08 17:22 | HHI.PR ---
Subjective Remarks Follow up respiratory failure and diarrhea. Patient seen and examined, mother at bedside. Patient lying in bed comfortably, no apparent distress. Spoke to RN , no acute events overnight. VSS. Afebrile. Tolerating TF. Continued t-piece, secretions thick. Objective Vitals Vital Signs Date Time Temp Pulse Resp B/P Pulse Ox O2 Delivery O2 Flow Rate FiO2 02/08/17 16:00 98.5 92 17 123/71 98 02/08/17 12:00 98.1 99 16 116/78 98 02/08/17 09:18 98 T-piece 28 02/08/17 08:00 98.9 94 17 118/68 93 02/08/17 00:00 97.3 87 20 114/76 98 02/07/17 20:00 97.0 92 20 121/76 100 02/07/17 17:22 99 T-piece 6.00 28 I/O 02/07/17 02/07/17 02/07/17 02/08/17 02/08/17 02/08/17 07:00 15:00 23:00 07:00 15:00 23:00 Intake Total 580 ml 0 ml 800 ml 2099 ml Output Total 1100 ml 400 ml 725 ml Balance 580 ml -1100 ml 800 ml -400 ml 1374 ml Intake Oral 0 ml 800 ml 0 ml Tube Feeding 400 ml 1919 ml Other 180 ml 180 ml Output Urine Total 1100 ml 400 ml 725 ml # Bowel Movements 4 1 1 Result Diagram: 02/05/17 0629 02/05/17 0629 Imaging Last Impressions Tube Change 01/24/17 0000 Signed Impressions: Service Date/Time: Tuesday, January 24, 2017 17:10 - CONCLUSION: Uncomplicated gastrojejunostomy tube exchange as above. Scott Griffin MD Chest X-Ray 01/20/17 0600 Signed Impressions: Service Date/Time: Friday, January 20, 2017 04:22 - CONCLUSION: 1. Bibasilar patchy densities, unchanged. 2. Tracheostomy tube unchanged. Mikie Vargas MD Head CT 01/09/17 0000 Signed Impressions: Service Date/Time: December 17:43 - CONCLUSION: 1. No acute hemorrhage or mass effect. 2. 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 3. Atrophy. Gerald Mukherjee MD CT Angiography 01/09/17 0000 Signed Impressions: Service Date/Time: December 17:49 - CONCLUSION: 1. No evidence of pulmonary emboli. 2. Patchy consolidation in both posterior lower lobes right greater than left. This could represent pneumonia. 3. 2 small noncalcified pulmonary nodules which are nonspecific finding. Short-term CT followup is recommended beginning in 6 months with a noncontrast outpatient CT. Gerald Mukherjee MD Tube Check 12/04/16 0000 Signed Impressions: Service Date/Time: Sunday, December 04, 2016 17:58 - CONCLUSION: Uncomplicated tube injection as above. the tube is in good position and functions normally. Moises Ramírez MD Abdomen X-Ray 08/31/16 0000 Signed Impressions: Service Date/Time: Wednesday, August 31, 2016 16:36 - CONCLUSION: 1. No acute findings. Mild constipation. Durga Dotson MD Abdomen/Pelvis CT 04/12/16 0000 Signed Impressions: Service Date/Time: Tuesday, April 12, 2016 20:52 - CONCLUSION: 1. 6.4 cm necrotic mass or abscess in the soft tissues posteriorly just below the sacrum associated with some bony destructive change of the lower most sacrum and coccyx with inflammatory changes extending into the ischiorectal fossa and into the presacral retroperitoneum predominantly on the left side. There is associated fairly marked mural thickening of the anal verge and rectum. 2. There is gastrostomy and Arevalo catheter present. Stable abdominal aortic aneurysm. Durga Dotson MD Head Magnetic Resonance Angiography 03/05/16 0000 Signed Impressions: Service Date/Time: Saturday, March 05, 2016 09:26 - CONCLUSION: Persistent high-grade subtotal occlusive stenotic lesions in the distal right vertebral artery and proximal basilar artery with significant improvement in flow and recanalization following initial presentation of thrombosis. Stable interstitial circulation without significant stenosis. 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 There is decreasing restricted diffusion and increasing loss of volume characteristic of a subacute to chronic infarct. No evidence of acute infarct, acute hemorrhage mass or edema. Ernesto Kulkarni MD Neck Magnetic Resonance Angiography 12/22/15 1445 Signed Impressions: Service Date/Time: Tuesday, December 22, 2015 09:22 - CONCLUSION: Variant origin of the left vertebral artery from the aortic arch. No evidence of carotid stenosis. Glen Zamora MD Head/Brain Mag Res Venography 12/22/15 0000 Signed Impressions: Service Date/Time: Tuesday, December 22, 2015 09:22 - CONCLUSION: Normal MRV. Jonel Jones Jr., MD Objective Remarks GENERAL: Non-verbal, lethargic, opens eyes to voice and command, tracking people in room. Not in acute distress. SKIN: Warm and dry. Right hallux toe post I & D, dressing changed, skin clean, dry, with minimal drainage. Gauze dressing reapplied. HEENT: Normocephalic. Pupils nonicteric. Nose without bleeding. Airway patent. NECK: Supple, trachea midline. T-tube in place, site clean, dry, intact. No JVD. CARDIOVASCULAR: Regular rate and rhythm. No murmur appreciated. RESPIRATORY: Breath sounds equal bilaterally. No accessory muscle use. Trach tube in place. Bedside monitor indicated oxygen saturation was 98%. GASTROINTESTINAL: Abdomen soft, non-tender, nondistended. GJ tube noted, area around insertion was clean, dry, dressing intact. MUSCULOSKELETAL: No cyanosis, or edema. PSYCHIATRIC: Pt non-verbal, he appeared calm and not in distress. Procedures 07/22/2016 Wide excision of sacral skin wound, biopsy of the cavity lining and debridement. PEG removal and Gj tube placement 07/29/16 VAC changes- M-W-F 10/23/16, 11/18, 12/31- GJ tube replacement 01/02/16 PEG placement 01/02/16 tracheostomy A/P Problem List: (1) CVA (cerebral vascular accident) ICD Code: I63.9 Status: Acute (2) A-fib ICD Code: I48.91 Status: Chronic (3) DM (diabetes mellitus) ICD Code: E11.9 Status: Chronic Assessment and Plan Mr. Flores is a 60 year-old male with past medical history of paroxysmal A. fib , hypertension, stage III non-Hodgkin's lymphoma status post chemotherapy who came into the hospital with altered mental status. 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 On Keppra 500mg BID - 750 twice a day home prior to arrival. On Paxil 20 by mouth daily for depression. On Ativan 0.5 mg every 4 hours when necessary anxiety. On acetaminophen with codeine for pain scale of 2-10. Vent dependent respiratory failure, currently trached and on t-piece Right upper lobe/right middle lobe pulmonary nodules - outpatient CT scan without contrast in 6 months to follow-up Continue with oxygen keep sat >92%. Trach changed to size #6 XLT on 01/09 Duo nebs every 6 hours Leave on TP 10/02 as tolerated Pulm toilet, trach care 01/09 CTA chest: No PE, bilateral lower lobe infiltrates. 4 mm right upper lobe/5 mm right middle lobe nodule. Pulm is following - Dr. Taylor Right hallux ingrown toenail, paronychia - [employer] has seen patient. I & D with partial nail avulsion performed at bedside 02/06/17. Dressing changed, c/d/i. - Continue to monitor. History of paroxysmal atrial fibrillation currently in sinus tachycardia Hypertension Dyslipidemia Monitor HR and BP keep MAP>65mmHg. O Continue ASA 325mg daily Cardizem 30mg QID Previously on sotalol 40 mg at night for paroxysmal fibrillation. Mild protein calorie malnutrition Gastroesophageal reflux disease Diarrhea, negative for C. difficile. Improved On Prevacid 30 mg Q12, on tube feeds(Jevity 1.5 at 55 ml/hr) Continue bowel regimen with hold parameters, Lactinex and Imodium. Klebsiella/Pseudomonas/staph aureus HCAP PSAE UTI S/p Cefepime. Monitor for signs of infections. strep pneumonia and Legionella urinary Ag is negative C-diff PCR negative on 01/13 01/09 BC : Staph Epi, Urine cx: Pseudomonas, Sputum cx: Pseudomonas, kleb, Staph. Patient was pancultured on 01/19 (Blood, sputum, urine) NGTD in urine and blood. Sputum + for pseudomonas. Microcytic anemia Stage III a non-Hodgkin's lymphoma - s/p chemotherapy 2014 Monitor CBC No further treatment recommended per heme oncology at this time. History of diabetes mellitus. A1c 5.5. Fingersticks have been stable. On metformin 500 daily at home. Stage IV decubitus ulcers -Dressing changes daily. Wound care last saw patient on 01/17/17, no new recommendations continue packing with Betadine moistened rolled Janis and covered with ABD pad and paper tape to secure. GI prophylaxis with Prevacid 30 mg Q12 DVT prophylaxis: SCD and Heparin SQ Discharge Planning Last CM note: * 02/07/17 i placed a call to erickson hay of [facility] [phone] and erickson has stated that she plans to visit this pt and meet with his family later today and erickson to review this pts clinicals and obtain the needed contracts then she should be able to be admit this pt to [facility] early next week Problem Qualifiers (1) CVA (cerebral vascular accident): (2) DM (diabetes mellitus): Qualified Code: E11.9 - Type 2 diabetes mellitus without complications Haley Seymour Feb 08, 2017 17:22
[2017-02-08] MEDS: PARoxetine HCL SUSP 20 MG/10 ML UDC PEG SCH (18:27)
[2017-02-09] VITALS (7 sets, daily range): BP systolic 112–126; BP diastolic 68–81; PULSE 96–102; RESP 17–20; TEMP 95.6–98.8; O2SAT 96–100
[2017-02-09] MEDS: HEPARIN SODIUM - SQ 10,000 UNITS/ML VIAL SQ SCH ×3 (05:23→21:01)
[2017-02-09] MEDS: ACETIC ACID 0.25% SOLN 1000 ML IRR BTL IRRIGATION SCH ×3 (05:23→21:01)
[2017-02-09 05:28] LABS: BICARBONATE 26.3 MEQ/L (21.0-32.0); POTASSIUM 4.2 MEQ/L (3.5-5.1)
[2017-02-09] MEDS: DILTIAZEM HCL 30 MG TAB PEG SCH ×4 (07:58→21:14)
[2017-02-09] MEDS: LANSOPRAZOLE SOLUTAB 30 MG TAB NG SCH ×2 (07:58→21:00)
[2017-02-09] MEDS: levETIRAcetam 500 MG/5 ML UDC TUBE SCH ×2 (07:59→21:00)
[2017-02-09] MEDS: BACITRACIN TOP OINT 15 GM TUBE TOP SCH ×2 (07:59→21:00)
[2017-02-09] MEDS: ASPIRIN 325 MG TAB TUBE SCH (07:59)
[2017-02-09] MEDS: SODIUM CHLORIDE 0.65% NASAL SPRAY 45 ML BTL NASAL SCH ×2 (07:59→20:32)
[2017-02-09] MEDS: ARTIFICIAL TEARS OPTH SOLN 15 ML BTL EACH EYE SCH ×2 (08:00→20:36)
[2017-02-09] MEDS: LACTOBACILLUS ACIDOPHILUS 1 GM PACKET G-TUBE SCH ×3 (08:00→16:38)
[2017-02-09] MEDS: NYSTATIN 100,000 U/GM PWD 15 GM BTL TOPICAL SCH ×2 (08:00→21:00)
--- NOTE | 2017-02-09 09:03 | HHI.PR ---
Subjective Remarks Follow up respiratory failure and diarrhea. Patient seen and examined, lying in bed. Mother at bedside. No discomfort noted. Spoke to RN, attempted to unclog J tube with no resolution. TF are now infusing through G tube until resolved. Afebrile. Tracking with eyes. Does not follow commands. VSS. Objective Vitals Vital Signs Date Time Temp Pulse Resp B/P Pulse Ox O2 Delivery O2 Flow Rate FiO2 02/09/17 08:00 95.6 97 18 124/80 100 02/09/17 04:00 96.4 96 20 126/81 96 02/09/17 00:00 97.6 102 20 125/77 98 02/08/17 22:33 99 T-piece 6.00 28 02/08/17 21:30 Simple Mask 5.00 02/08/17 20:00 97.5 99 18 110/64 93 02/08/17 16:00 98.5 92 17 123/71 98 02/08/17 12:00 98.1 99 16 116/78 98 02/08/17 09:18 98 T-piece 28 I/O 02/08/17 02/08/17 02/08/17 02/09/17 02/09/17 02/09/17 07:00 15:00 23:00 07:00 15:00 23:00 Intake Total 2099 ml Output Total 400 ml 725 ml 675 ml 300 ml Balance -400 ml 1374 ml -675 ml -300 ml Intake Oral 0 ml Tube Feeding 1919 ml Other 180 ml Output Urine Total 400 ml 725 ml 675 ml 300 ml # Bowel Movements 1 1 0 Result Diagram: 02/05/17 0629 02/09/17 0419 Imaging Last Impressions Tube Change 01/24/17 0000 Signed Impressions: Service Date/Time: Tuesday, January 24, 2017 17:10 - CONCLUSION: Uncomplicated gastrojejunostomy tube exchange as above. Scott Griffin MD Chest X-Ray 01/20/17 0600 Signed Impressions: Service Date/Time: Friday, January 20, 2017 04:22 - CONCLUSION: 1. Bibasilar patchy densities, unchanged. 2. Tracheostomy tube unchanged. Mikie Vargas MD Head CT 01/09/17 0000 Signed Impressions: Service Date/Time: December 17:43 - CONCLUSION: 1. No acute hemorrhage or mass effect. 2. 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 3. Atrophy. Gerald Mukherjee MD CT Angiography 01/09/17 0000 Signed Impressions: Service Date/Time: December 17:49 - CONCLUSION: 1. No evidence of pulmonary emboli. 2. Patchy consolidation in both posterior lower lobes right greater than left. This could represent pneumonia. 3. 2 small noncalcified pulmonary nodules which are nonspecific finding. Short-term CT followup is recommended beginning in 6 months with a noncontrast outpatient CT. Gerald Mukherjee MD Tube Check 12/04/16 0000 Signed Impressions: Service Date/Time: Sunday, December 04, 2016 17:58 - CONCLUSION: Uncomplicated tube injection as above. the tube is in good position and functions normally. Moises Ramírez MD Abdomen X-Ray 08/31/16 0000 Signed Impressions: Service Date/Time: Wednesday, August 31, 2016 16:36 - CONCLUSION: 1. No acute findings. Mild constipation. Durga Dotson MD Abdomen/Pelvis CT 04/12/16 0000 Signed Impressions: Service Date/Time: Tuesday, April 12, 2016 20:52 - CONCLUSION: 1. 6.4 cm necrotic mass or abscess in the soft tissues posteriorly just below the sacrum associated with some bony destructive change of the lower most sacrum and coccyx with inflammatory changes extending into the ischiorectal fossa and into the presacral retroperitoneum predominantly on the left side. There is associated fairly marked mural thickening of the anal verge and rectum. 2. There is gastrostomy and Arevalo catheter present. Stable abdominal aortic aneurysm. Durga Dotson MD Head Magnetic Resonance Angiography 03/05/16 0000 Signed Impressions: Service Date/Time: Saturday, March 05, 2016 09:26 - CONCLUSION: Persistent high-grade subtotal occlusive stenotic lesions in the distal right vertebral artery and proximal basilar artery with significant improvement in flow and recanalization following initial presentation of thrombosis. Stable interstitial circulation without significant stenosis. 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 There is decreasing restricted diffusion and increasing loss of volume characteristic of a subacute to chronic infarct. No evidence of acute infarct, acute hemorrhage mass or edema. Ernesto Kulkarni MD Neck Magnetic Resonance Angiography 12/22/15 1445 Signed Impressions: Service Date/Time: Tuesday, December 22, 2015 09:22 - CONCLUSION: Variant origin of the left vertebral artery from the aortic arch. No evidence of carotid stenosis. Glen Zamora MD Head/Brain Mag Res Venography 12/22/15 0000 Signed Impressions: Service Date/Time: Tuesday, December 22, 2015 09:22 - CONCLUSION: Normal MRV. Jonel Jones Jr., MD Objective Remarks GENERAL: Non-verbal, lethargic, opens eyes to voice and command, tracking people in room. Not in acute distress. SKIN: Warm and dry. Right hallux toe post I & D, dressing changed, skin clean, dry, with minimal drainage. Gauze dressing reapplied. HEENT: Normocephalic. Pupils nonicteric. Nose without bleeding. Airway patent. NECK: Supple, trachea midline. T-tube in place, site clean, dry, intact. No JVD. CARDIOVASCULAR: Regular rate and rhythm. No murmur appreciated. RESPIRATORY: Breath sounds equal bilaterally. No accessory muscle use. Trach tube in place. Bedside monitor indicated oxygen saturation was 98%. GASTROINTESTINAL: Abdomen soft, non-tender, nondistended. GJ tube noted, area around insertion was clean, dry, dressing intact. J tube clogged. MUSCULOSKELETAL: No cyanosis, or edema. PSYCHIATRIC: Pt non-verbal, he appeared calm and not in distress. Procedures 07/22/2016 Wide excision of sacral skin wound, biopsy of the cavity lining and debridement. PEG removal and Gj tube placement 07/29/16 VAC changes- M-W-F 10/23/16, 11/18, 12/31- GJ tube replacement 01/02/16 PEG placement 01/02/16 tracheostomy A/P Problem List: (1) CVA (cerebral vascular accident) ICD Code: I63.9 Status: Acute (2) A-fib ICD Code: I48.91 Status: Chronic (3) DM (diabetes mellitus) ICD Code: E11.9 Status: Chronic Assessment and Plan Mr. Flores is a 60 year-old male with past medical history of paroxysmal A. fib , hypertension, stage III non-Hodgkin's lymphoma status post chemotherapy who came into the hospital with altered mental status. 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 On Keppra 500mg BID On Paxil 20 by mouth daily for depression. On Ativan 0.5 mg every 4 hours when necessary anxiety. On acetaminophen with codeine for pain scale of 2-10. Vent dependent respiratory failure, currently trached and on t-piece Right upper lobe/right middle lobe pulmonary nodules - outpatient CT scan without contrast in 6 months to follow-up Continue with oxygen keep sat >92%. Trach changed to size #6 XLT on 01/09 Duo nebs every 6 hours Leave on TP 10/02 as tolerated Pulm toilet, trach care 01/09 CTA chest: No PE, bilateral lower lobe infiltrates. 4 mm right upper lobe/5 mm right middle lobe nodule. Pulm is following - Dr. Taylor Right hallux ingrown toenail, paronychia - Printing Engineer has seen patient. I & D with partial nail avulsion performed at bedside 02/06/17. Dressing changed, c/d/i. - Continue to monitor. History of paroxysmal atrial fibrillation currently in sinus tachycardia Hypertension Dyslipidemia Monitor HR and BP keep MAP>65mmHg. O Continue ASA 325mg daily Cardizem 30mg QID Mild protein calorie malnutrition Gastroesophageal reflux disease Diarrhea, negative for C. difficile. Improved On Prevacid 30 mg Q12, on tube feeds(Jevity 1.5 at 55 ml/hr) Continue bowel regimen with hold parameters, Lactinex and Imodium. J tube clogged, IR consulted to evaluate. Klebsiella/Pseudomonas/staph aureus HCAP PSAE UTI S/p Cefepime. Monitor for signs of infections. strep pneumonia and Legionella urinary Ag is negative C-diff PCR negative on 01/13 01/09 BC : Staph Epi, Urine cx: Pseudomonas, Sputum cx: Pseudomonas, kleb, Staph. Patient was pancultured on 01/19 (Blood, sputum, urine) NGTD in urine and blood. Sputum + for pseudomonas. Microcytic anemia Stage III a non-Hodgkin's lymphoma - s/p chemotherapy 2014 Monitor CBC No further treatment recommended per heme oncology at this time. History of diabetes mellitus. A1c 5.5. Fingersticks have been stable. Stage IV decubitus ulcers -Dressing changes daily. Wound care last saw patient on 01/17/17, no new recommendations continue packing with Betadine moistened rolled Janis and covered with ABD pad and paper tape to secure. GI prophylaxis with Prevacid 30 mg Q12 DVT prophylaxis: SCD and Heparin SQ Discharge Planning Last note: * 02/07/17 i placed a call to erickson [facility] of [facility] [phone] and erickson has stated that she plans to visit this pt and meet with his family later today and erickson to review this pts clinicals and obtain the needed contracts then she should be able to be admit this pt to [facility] early next week Problem Qualifiers (1) CVA (cerebral vascular accident): (2) DM (diabetes mellitus): Qualified Code: E11.9 - Type 2 diabetes mellitus without complications Haley Seymour Feb 09, 2017 09:02
[2017-02-09] MEDS: SENNOSIDES SYRUP 8.8 MG/5 ML CUP PEG SCH (16:00)
[2017-02-09] MEDS: PARoxetine HCL SUSP 20 MG/10 ML UDC PEG SCH (18:29)
[2017-02-10] VITALS (7 sets, daily range): BP systolic 109–115; BP diastolic 64–78; PULSE 81–98; RESP 17–20; TEMP 96.1–100.1; O2SAT 92–100
[2017-02-10] MEDS: ACETIC ACID 0.25% SOLN 1000 ML IRR BTL IRRIGATION SCH ×3 (04:31→20:58)
[2017-02-10] MEDS: HEPARIN SODIUM - SQ 10,000 UNITS/ML VIAL SQ SCH ×2 (04:31→13:23)
[2017-02-10] MEDS: DILTIAZEM HCL 30 MG TAB PEG SCH ×3 (08:05→17:26)
[2017-02-10] MEDS: ASPIRIN 325 MG TAB TUBE SCH (08:05)
[2017-02-10] MEDS: levETIRAcetam 500 MG/5 ML UDC TUBE SCH ×2 (08:05→20:18)
[2017-02-10] MEDS: LACTOBACILLUS ACIDOPHILUS 1 GM PACKET G-TUBE SCH (08:05)
[2017-02-10] MEDS: LANSOPRAZOLE SOLUTAB 30 MG TAB NG SCH ×2 (08:05→20:18)
[2017-02-10] MEDS: ARTIFICIAL TEARS OPTH SOLN 15 ML BTL EACH EYE SCH ×2 (08:06→20:18)
[2017-02-10] MEDS: SODIUM CHLORIDE 0.65% NASAL SPRAY 45 ML BTL NASAL SCH ×2 (08:06→20:18)
[2017-02-10] MEDS: NYSTATIN 100,000 U/GM PWD 15 GM BTL TOPICAL SCH ×2 (08:06→20:19)
[2017-02-10] MEDS: BACITRACIN TOP OINT 15 GM TUBE TOP SCH ×2 (08:06→20:19)
[2017-02-10] MEDS: SENNOSIDES SYRUP 8.8 MG/5 ML CUP PEG SCH (13:32)
--- NOTE | 2017-02-10 15:34 | HHI.PR ---
Subjective Remarks ass OPENS EYES NO DISTRESS SAT 96% PULSE 88 Objective Vital Signs Date Time Temp Pulse Resp B/P Pulse Ox O2 Delivery O2 Flow Rate FiO2 02/10/17 12:00 96.9 95 17 115/77 100 02/10/17 10:59 Trach Collar 5.00 Humidified 02/10/17 08:00 96.6 87 20 109/78 98 02/10/17 04:38 97.2 94 18 112/71 92 02/10/17 00:00 100.1 98 18 113/64 94 02/09/17 21:48 97 T-piece 5.00 28 02/09/17 20:00 98.8 100 18 118/75 99 02/09/17 16:00 97.9 101 18 112/68 97 I/O 02/09/17 02/09/17 02/09/17 02/10/17 02/10/17 02/10/17 06:59 14:59 22:59 06:59 14:59 22:59 Intake Total 0 ml 1019 ml 800 ml 533 ml Output Total 300 ml 600 ml 900 ml Balance -300 ml -600 ml 119 ml 800 ml 533 ml Intake Oral 0 ml IV Total 1019 ml Tube Feeding 720 ml 533 ml Tube Irrigant 80 ml Output Urine Total 300 ml 600 ml 900 ml # Bowel Movements 1 Result Diagram: 02/09/17 0419 Procedures 01/02/16 PEG placement 01/02/16 tracheostomy 07/22/2016 Wide excision of sacral skin wound, biopsy of the cavity lining and debridement. PEG tube replacement 07/29/16 Objective Remarks GENERAL: SKIN: Warm and dry. HEAD: Atraumatic. Normocephalic. EYES: Pupils equal and round. No scleral icterus. No injection or drainage. ENT: No nasal bleeding or discharge. Mucous membranes pink and moist. NECK: Trachea midline. No JVD. CARDIOVASCULAR: Regular rate and rhythm. RESPIRATORY: No accessory muscle use. Clear to auscultation. Breath sounds equal bilaterally. GASTROINTESTINAL: Abdomen soft, non-tender, nondistended. Hepatic and splenic margins not palpable. MUSCULOSKELETAL: Extremities without clubbing, cyanosis, or edema. No obvious deformities. NEUROLOGICAL: Awake and alert. No obvious cranial nerve deficits. Motor grossly within normal limits. Five out of 5 muscle strength in the arms and legs. Normal speech. PSYCHIATRIC: Appropriate mood and affect; insight and judgment normal. Laboratory Tests Test 01/05/17 01/06/17 08:35 08:41 Red Blood Count 4.43 MIL/MM3 (4.50-5.90) Hemoglobin 9.9 GM/DL (13.0-17.0) Hematocrit 32.0 % (39.0-51.0) Mean Corpuscular Volume 72.1 FL (80.0-100.0) Mean Corpuscular Hemoglobin 22.3 PG (27.0-34.0) Mean Corpuscular Hemoglobin 30.9 % Concent (32.0-36.0) Red Cell Distribution Width 19.9 % (11.6-17.2) Sodium Level 134 MEQ/L 133 MEQ/L (136-145) (136-145) Random Glucose 136 MG/DL 132 MG/DL (74-106) (74-106) Creatinine 0.59 MG/DL (0.60-1.30) GENERAL: SKIN: Warm and dry. HEAD: Atraumatic. Normocephalic. EYES: Pupils equal and round. No scleral icterus. No injection or drainage. ENT: No nasal bleeding or discharge. Mucous membranes pink and moist. NECK: Trachea midline. No JVD. TRACH. [place] CARDIOVASCULAR: Regular rate and rhythm. RESPIRATORY: No accessory muscle use. Clear to auscultation. Breath sounds equal bilaterally. GASTROINTESTINAL: Abdomen soft, non-tender, nondistended. Hepatic and splenic margins not palpable. MUSCULOSKELETAL: Extremities without clubbing, cyanosis, or edema. No obvious deformities. NEUROLOGICAL: Awake and alert. No obvious cranial nerve deficits. Motor grossly within normal limits. Five out of 5 muscle strength in the arms and legs. Normal speech. PSYCHIATRIC: Appropriate mood and affect; insight and judgment normal. Assessment and Plan Assessment and Plan impression respiratory failure CVA S/P TRACHEOSTOMY PLAN O2 NEEDED PULM. TOILET ANTIBIOTICS PER ID Gatzke poor Discharge Planning GENERAL: SKIN: Warm and dry. HEAD: Atraumatic. Normocephalic. EYES: Pupils equal and round. No scleral icterus. No injection or drainage. ENT: No nasal bleeding or discharge. Mucous membranes pink and moist. NECK: Trachea midline. No JVD. trach. in place CARDIOVASCULAR: Regular rate and rhythm. RESPIRATORY: No accessory muscle use. Clear to auscultation. Breath sounds equal bilaterally. GASTROINTESTINAL: Abdomen soft, non-tender, nondistended. Hepatic and splenic margins not palpable. MUSCULOSKELETAL: Extremities without clubbing, cyanosis, or edema. No obvious deformities. NEUROLOGICAL: Awake and alert. No obvious cranial nerve deficits. Motor grossly within normal limits. Five out of 5 muscle strength in the arms and legs. Normal speech. PSYCHIATRIC: Appropriate mood and affect; insight and judgment normal. Brandon Taylor MD Feb 10, 2017 15:34
--- NOTE | 2017-02-10 18:26 | HHI.PR ---
Subjective Remarks Follow up respiratory failure and diarrhea. Tracking with eyes. Does not follow commands Patient seen and examined, lying in bed. Eyes closed Mother at bedside. No discomfort noted. Spoke to RN (Emeli), TF are now infusing through G tube. Secretions continue. Pt without acute issues overnight or since start of shift. Objective Vitals Vital Signs Date Time Temp Pulse Resp B/P Pulse Ox O2 Delivery O2 Flow Rate FiO2 02/10/17 12:00 96.9 95 17 115/77 100 02/10/17 10:59 Trach Collar 5.00 Humidified 02/10/17 08:00 96.6 87 20 109/78 98 02/10/17 04:38 97.2 94 18 112/71 92 02/10/17 00:00 100.1 98 18 113/64 94 02/09/17 21:48 97 T-piece 5.00 28 02/09/17 20:00 98.8 100 18 118/75 99 I/O 02/09/17 02/09/17 02/09/17 02/10/17 02/10/17 02/10/17 07:00 15:00 23:00 07:00 15:00 23:00 Intake Total 0 ml 1019 ml 800 ml 533 ml Output Total 300 ml 600 ml 900 ml Balance -300 ml -600 ml 119 ml 800 ml 533 ml Intake Oral 0 ml IV Total 1019 ml Tube Feeding 720 ml 533 ml Tube Irrigant 80 ml Output Urine Total 300 ml 600 ml 900 ml # Bowel Movements 1 Result Diagram: 02/09/17 0419 Objective Remarks GENERAL: Pt encountered laying a bed, non-verbal, not tracking people in room. Not in acute distress. Pt not following commands. SKIN: Warm and dry. tattoo noted on right forearm. HEAD: Normocephalic. EYES: Non-icteric without injection or drainage. Pt noted to have eyes closed and eyes were pried open for examination. NECK: Supple, trachea midline. T-tube in place. CARDIOVASCULAR: Regular rate and rhythm without murmurs, gallops, or rubs. RESPIRATORY: Breath sounds equal bilaterally. No accessory muscle use. Trach tube in place. Bedside monitor indicated oxygen saturation was 100%. GASTROINTESTINAL: Abdomen soft, non-tender, nondistended. GJ tube noted, area around insertion was dry and seemingly without leakage. MUSCULOSKELETAL: No cyanosis, or edema. Bilateral lower leg SCD's present. PSYCHIATRIC: Pt non-verbal, he appeared calm and not in distress. Procedures 07/22/2016 Wide excision of sacral skin wound, biopsy of the cavity lining and debridement. PEG removal and Gj tube placement 07/29/16 VAC changes- M-W-F 10/23/16, 11/18, 12/31- GJ tube replacement 01/02/16 PEG placement 01/02/16 tracheostomy Medications and IVs Current Medications Medications (Trade) Dose Ordered Sig/Junior Route Start Time Stop Time Status Last Admin (NS Flush) 2 ml UNSCH PRN IVF 12/21/15 06:00 09/28/16 21:18 (Keppra Liq) 500 mg Q12HR TUBE 12/27/15 21:00 02/10/17 08:05 (Tylenol 650 Mg/ 20 ml Liq) 650 mg Q6H PRN TUBE 12/30/15 15:15 01/18/17 21:34 (Mycostatin Powder) 1 applic Q12HR TOPICAL 01/08/16 21:00 02/10/17 08:06 (Pill Splitter) 1 ea UNSCH PRN OTHER 01/14/16 08:30 (Acetic Acid 0.25% Irr Btl) 10 ml Q8HR IRRIGATION 02/05/16 16:00 02/10/17 13:32 (Ativan Inj) 0.5 mg Q4H PRN IV PUSH 03/07/16 23:00 (Paxil Liq) 20 mg DAILY@1900 PEG 03/12/16 19:00 02/09/17 18:29 (Levsin) 0.25 mg Q4H PRN G-TUBE 04/11/16 10:30 01/25/17 20:13 (Zofran Inj) 4 mg Q6HR PRN IV PUSH 04/14/16 19:45 08/10/16 10:16 (Aspirin) 325 mg DAILY TUBE 05/27/16 11:40 02/10/17 08:05 (Heparin Inj) 5,000 units Q8HR SQ 06/11/16 14:00 02/10/17 13:23 (Baciguent Oint) 1 applic BID TOP 07/20/16 10:00 02/10/17 08:06 ([place]) 1 spray BID NASAL 08/01/16 21:00 02/10/17 08:06 (Tears Naturale Opth Soln) 1 drop BID EACH EYE 09/05/16 21:00 02/10/17 08:06 (Morphine Inj) 1 mg Q24H PRN IV PUSH 09/17/16 14:30 10/22/16 02:00 (Fleets Enema (Adult)) 133 ml UNSCH PRN AL 09/25/16 16:00 (Dulcolax Supp) 10 mg DAILY PRN RECTAL 09/26/16 15:30 12/08/16 09:17 (Tylenol - Codeine 120-12 Liq) 5 ml Q4H PRN G-TUBE 12/27/16 15:30 02/06/17 17:05 (Flexeril) 5 mg HS PRN PEG 12/27/16 15:30 (Imodium Liq) 2 mg Q6H PRN PEG 12/27/16 15:30 01/24/17 20:05 (Milk Of Magnesia Liq) 30 ml DAILY PRN PEG 12/27/16 15:30 01/31/17 14:11 (Milk Of Magnesia Liq) 30 ml DAILY PEG 12/28/16 09:00 Hold 01/19/17 08:44 (Senna Liq) 8.8 mg DAILY@1600 PEG 12/27/16 16:00 02/07/17 17:13 (Lactulose Liq) 30 ml DAILY PRN PEG 12/27/16 15:30 (Cardizem) 30 mg QID PEG 01/09/17 18:00 02/10/17 17:26 (D50w (Vial) Inj) 50 ml UNSCH PRN IV 01/09/17 16:00 (Glucagon Inj) 1 mg UNSCH PRN OTHER 01/09/17 16:00 (Prevacid Odt) 30 mg BID NG 01/26/17 21:00 02/10/17 08:05 Urinary Catheter: Yes Assessment to: Continue Arevalo insert reason: Prolonged Immobilization A/P Problem List: (1) CVA (cerebral vascular accident) ICD Code: I63.9 Status: Acute (2) A-fib ICD Code: I48.91 Status: Chronic (3) DM (diabetes mellitus) ICD Code: E11.9 Status: Chronic Assessment and Plan Mr. Florse is a 61 year-old male with past medical history of paroxysmal A. fib , hypertension, stage III non-Hodgkin's lymphoma status post chemotherapy who came into the hospital with altered mental status. 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 Per RN, possible transfer to [facility]. Continue Levsin regimen to decrease secretions. Adding Ashish twice a day. Status post brain biopsy on December 13: Path report - acute infarct, no evidence of lymphoma Depression Monitor neuro status Off sedation. On Keppra 500mg BID On Paxil 20 by mouth daily for depression. On Ativan 0.5 mg every 4 hours when necessary anxiety. On acetaminophen with codeine for pain scale of 2-10. Vent dependent respiratory failure, currently trached and on t-piece Right upper lobe/right middle lobe pulmonary nodules - outpatient CT scan without contrast in 6 months to follow-up Continue with oxygen keep sat >92%. Trach changed to size #6 XLT on 01/09 Duo nebs every 6 hours Leave on TP 10/02 as tolerated Pulm toilet, trach care 01/09 CTA chest: No PE, bilateral lower lobe infiltrates. 4 mm right upper lobe/5 mm right middle lobe nodule. Pulm is following - Dr. Taylor Right hallux ingrown toenail, paronychia - [facility] has seen patient. I & D with partial nail avulsion performed at bedside 02/06/17. Dressing changed, c/d/i. - Continue to monitor. History of paroxysmal atrial fibrillation currently in sinus tachycardia Hypertension Dyslipidemia Monitor HR and BP keep MAP>65mmHg. O Continue ASA 325mg daily Cardizem 30mg QID Mild protein calorie malnutrition Gastroesophageal reflux disease Diarrhea, negative for C. difficile. Improved On Prevacid 30 mg Q12, on tube feeds(Jevity 1.5 at 55 ml/hr) Continue bowel regimen with hold parameters, Lactinex and Imodium. J tube clogged, IR consulted to evaluate. Klebsiella/Pseudomonas/staph aureus HCAP PSAE UTI S/p Cefepime. Monitor for signs of infections. strep pneumonia and Legionella urinary Ag is negative C-diff PCR negative on 01/13 01/09 BC : Staph Epi, Urine cx: Pseudomonas, Sputum cx: Pseudomonas, kleb, Staph. Patient was pancultured on 01/19 (Blood, sputum, urine) NGTD in urine and blood. Sputum + for pseudomonas. Microcytic anemia Stage III a non-Hodgkin's lymphoma - s/p chemotherapy 2014 Monitor CBC No further treatment recommended per heme oncology at this time. History of diabetes mellitus. A1c 5.5. Fingersticks have been stable. Stage IV decubitus ulcers -Dressing changes daily. Wound care last saw patient on 01/17/17, no new recommendations continue packing with Betadine moistened rolled Janis and covered with ABD pad and paper tape to secure. GI prophylaxis with Prevacid 30 mg Q12 DVT prophylaxis: SCD and Heparin SQ Discharge Planning Pt being evaluated by Jarrod. Problem Qualifiers (1) CVA (cerebral vascular accident): (2) DM (diabetes mellitus): Qualified Code: E11.9 - Type 2 diabetes mellitus without complications Javier Harris Jr. Feb 10, 2017 18:26
[2017-02-10] MEDS: PARoxetine HCL SUSP 20 MG/10 ML UDC PEG SCH (18:34)
[2017-02-10] MEDS: HYOSCYAMINE 0.125 MG TAB G-TUBE PRN (18:34)
[2017-02-10] MEDS: JUVEN POWDER 1 PACK G-TUBE SCH (20:58)
[2017-02-11] VITALS: BP 116/74; PULSE 88; RESP 18; TEMP 96.3; O2SAT 99
[2017-02-11] MEDS: DILTIAZEM HCL 30 MG TAB PEG SCH ×5 (00:04→23:57)
[2017-02-11] MEDS: HEPARIN SODIUM - SQ 10,000 UNITS/ML VIAL SQ SCH ×4 (00:05→23:57)
[2017-02-11] MEDS: ACETIC ACID 0.25% SOLN 1000 ML IRR BTL IRRIGATION SCH ×3 (06:14→21:03)
[2017-02-11 08:00] VITALS: BP 113/72; PULSE 91; RESP 18; TEMP 98.6; O2SAT 100
[2017-02-11] MEDS: MAGNESIUM HYDROXIDE SUSP 30 ML CUP PEG PRN (08:46)
[2017-02-11] MEDS: ASPIRIN 325 MG TAB TUBE SCH (08:47)
[2017-02-11] MEDS: levETIRAcetam 500 MG/5 ML UDC TUBE SCH ×2 (08:47→21:03)
[2017-02-11] MEDS: HYOSCYAMINE 0.125 MG TAB G-TUBE PRN (08:47)
[2017-02-11] MEDS: LANSOPRAZOLE SOLUTAB 30 MG TAB NG SCH ×2 (08:47→21:03)
[2017-02-11] MEDS: BACITRACIN TOP OINT 15 GM TUBE TOP SCH ×2 (09:00→21:05)
[2017-02-11] MEDS: NYSTATIN 100,000 U/GM PWD 15 GM BTL TOPICAL SCH ×2 (09:00→21:05)
[2017-02-11] MEDS: ARTIFICIAL TEARS OPTH SOLN 15 ML BTL EACH EYE SCH ×2 (09:00→21:05)
[2017-02-11] MEDS: SODIUM CHLORIDE 0.65% NASAL SPRAY 45 ML BTL NASAL SCH ×2 (09:00→21:05)
[2017-02-11 12:00] VITALS: BP 95/67; PULSE 85; RESP 18; TEMP 98.4; O2SAT 99
[2017-02-11] MEDS: SENNOSIDES SYRUP 8.8 MG/5 ML CUP PEG SCH (16:00)
[2017-02-11 16:07] VITALS: BP 111/69; PULSE 93; RESP 18; TEMP 96; O2SAT 97
--- NOTE | 2017-02-11 16:33 | HHI.PR ---
Subjective Remarks ass OPENS EYES NO DISTRESS SAT 96% PULSE 88 Objective Vital Signs Date Time Temp Pulse Resp B/P Pulse Ox O2 Delivery O2 Flow Rate FiO2 02/11/17 16:07 96.0 93 18 111/69 97 02/11/17 12:00 98.4 85 18 95/67 99 02/11/17 08:00 98.6 91 18 113/72 100 02/11/17 00:00 96.3 88 18 116/74 99 02/10/17 22:27 99 T-piece 28 02/10/17 20:00 96.1 94 18 114/73 99 02/10/17 20:00 99 Nasal Cannula 5.00 Humidified I/O 02/10/17 02/10/17 02/10/17 02/11/17 02/11/17 02/11/17 06:59 14:59 22:59 06:59 14:59 22:59 Intake Total 800 ml 533 ml 667 ml 716 ml 0 ml Output Total 600 ml 750 ml 500 ml 450 ml Balance 800 ml -67 ml -83 ml 216 ml -450 ml Intake Oral 0 ml 0 ml 0 ml 0 ml IV Total 0 ml 0 ml Tube Feeding 720 ml 533 ml 487 ml 536 ml Tube Irrigant 80 ml 180 ml 180 ml Output Urine Total 600 ml 750 ml 500 ml 450 ml # Bowel Movements 1 0 0 1 Result Diagram: 02/09/17 0419 Procedures 01/02/16 PEG placement 01/02/16 tracheostomy 07/22/2016 Wide excision of sacral skin wound, biopsy of the cavity lining and debridement. PEG tube replacement 07/29/16 Objective Remarks GENERAL: SKIN: Warm and dry. HEAD: Atraumatic. Normocephalic. EYES: Pupils equal and round. No scleral icterus. No injection or drainage. ENT: No nasal bleeding or discharge. Mucous membranes pink and moist. NECK: Trachea midline. No JVD. CARDIOVASCULAR: Regular rate and rhythm. RESPIRATORY: No accessory muscle use. Clear to auscultation. Breath sounds equal bilaterally. GASTROINTESTINAL: Abdomen soft, non-tender, nondistended. Hepatic and splenic margins not palpable. MUSCULOSKELETAL: Extremities without clubbing, cyanosis, or edema. No obvious deformities. NEUROLOGICAL: Awake and alert. No obvious cranial nerve deficits. Motor grossly within normal limits. Five out of 5 muscle strength in the arms and legs. Normal speech. PSYCHIATRIC: Appropriate mood and affect; insight and judgment normal. Laboratory Tests Test 01/05/17 01/06/17 08:35 08:41 Red Blood Count 4.43 MIL/MM3 (4.50-5.90) Hemoglobin 9.9 GM/DL (13.0-17.0) Hematocrit 32.0 % (39.0-51.0) Mean Corpuscular Volume 72.1 FL (80.0-100.0) Mean Corpuscular Hemoglobin 22.3 PG (27.0-34.0) Mean Corpuscular Hemoglobin 30.9 % Concent (32.0-36.0) Red Cell Distribution Width 19.9 % (11.6-17.2) Sodium Level 134 MEQ/L 133 MEQ/L (136-145) (136-145) Random Glucose 136 MG/DL 132 MG/DL (74-106) (74-106) Creatinine 0.59 MG/DL (0.60-1.30) GENERAL: SKIN: Warm and dry. HEAD: Atraumatic. Normocephalic. EYES: Pupils equal and round. No scleral icterus. No injection or drainage. ENT: No nasal bleeding or discharge. Mucous membranes pink and moist. NECK: Trachea midline. No JVD. TRACH. [place] CARDIOVASCULAR: Regular rate and rhythm. RESPIRATORY: No accessory muscle use. Clear to auscultation. Breath sounds equal bilaterally. GASTROINTESTINAL: Abdomen soft, non-tender, nondistended. Hepatic and splenic margins not palpable. MUSCULOSKELETAL: Extremities without clubbing, cyanosis, or edema. No obvious deformities. NEUROLOGICAL: Awake and alert. No obvious cranial nerve deficits. Motor grossly within normal limits. Five out of 5 muscle strength in the arms and legs. Normal speech. PSYCHIATRIC: Appropriate mood and affect; insight and judgment normal. Assessment and Plan Assessment and Plan impression respiratory failure CVA S/P TRACHEOSTOMY PLAN O2 NEEDED PULM. TOILET ANTIBIOTICS PER ID [place] Brandon Moy MD Feb 11, 2017 16:33
--- NOTE | 2017-02-11 16:42 | HHI.PR ---
Subjective Remarks Follow up respiratory failure and diarrhea. Tracking with eyes. Does not follow commands Patient seen and examined, lying in bed. Eyes closed Mother at bedside. No discomfort noted. Spoke to RN (Urvashi) at bedside, G tube was clogged earlier in the day and IR was called and came to room to address issue. Tube is reported to be working "normally." Otherwise, pt without acute issues overnight or since start of shift. Objective Vitals Vital Signs Date Time Temp Pulse Resp B/P Pulse Ox O2 Delivery O2 Flow Rate FiO2 02/11/17 16:07 96.0 93 18 111/69 97 02/11/17 12:00 98.4 85 18 95/67 99 02/11/17 08:00 98.6 91 18 113/72 100 02/11/17 00:00 96.3 88 18 116/74 99 02/10/17 22:27 99 T-piece 28 02/10/17 20:00 96.1 94 18 114/73 99 02/10/17 20:00 99 Nasal Cannula 5.00 Humidified I/O 02/10/17 02/10/17 02/10/17 02/11/17 02/11/17 02/11/17 07:00 15:00 23:00 07:00 15:00 23:00 Intake Total 800 ml 533 ml 667 ml 716 ml 0 ml Output Total 600 ml 750 ml 500 ml 450 ml Balance 800 ml -67 ml -83 ml 216 ml -450 ml Intake Oral 0 ml 0 ml 0 ml 0 ml IV Total 0 ml 0 ml Tube Feeding 720 ml 533 ml 487 ml 536 ml Tube Irrigant 80 ml 180 ml 180 ml Output Urine Total 600 ml 750 ml 500 ml 450 ml # Bowel Movements 1 0 0 1 Result Diagram: 02/09/17 0419 Objective Remarks GENERAL: Pt encountered laying a bed, non-verbal, not tracking people in room. Not in acute distress. Pt not following commands. SKIN: Warm and dry. tattoo noted on right forearm. RN providing wound care to nail paronychia of right great toe. HEAD: Normocephalic. EYES: Non-icteric without injection or drainage. Pt noted to have eyes closed and eyes were pried open for examination. NECK: Supple, trachea midline. T-tube in place. CARDIOVASCULAR: Regular rate and rhythm without murmurs, gallops, or rubs. RESPIRATORY: Breath sounds equal bilaterally. No accessory muscle use. Trach tube in place. Bedside monitor indicated oxygen saturation was 100%. GASTROINTESTINAL: Abdomen soft, non-tender, nondistended. GJ tube noted, area around insertion was dry and seemingly without leakage. MUSCULOSKELETAL: No cyanosis, or edema. Bilateral lower leg SCD's present. PSYCHIATRIC: Pt non-verbal, he appeared calm and not in distress. Procedures 07/22/2016 Wide excision of sacral skin wound, biopsy of the cavity lining and debridement. PEG removal and Gj tube placement 07/29/16 VAC changes- M-W-F 10/23/16, 11/18, 12/31- GJ tube replacement 01/02/16 PEG placement 01/02/16 tracheostomy Medications and IVs Current Medications Medications (Trade) Dose Ordered Sig/Junior Route Start Time Stop Time Status Last Admin (NS Flush) 2 ml UNSCH PRN IVF 12/21/15 06:00 09/28/16 21:18 (Keppra Liq) 500 mg Q12HR TUBE 12/27/15 21:00 02/11/17 08:47 (Tylenol 650 Mg/ 20 ml Liq) 650 mg Q6H PRN TUBE 12/30/15 15:15 01/18/17 21:34 (Mycostatin Powder) 1 applic Q12HR TOPICAL 01/08/16 21:00 02/11/17 09:00 (Pill Splitter) 1 ea UNSCH PRN OTHER 01/14/16 08:30 (Acetic Acid 0.25% Irr Btl) 10 ml Q8HR IRRIGATION 02/05/16 16:00 02/11/17 13:51 (Ativan Inj) 0.5 mg Q4H PRN IV PUSH 03/07/16 23:00 (Paxil Liq) 20 mg DAILY@1900 PEG 03/12/16 19:00 02/10/17 18:34 (Levsin) 0.25 mg Q4H PRN G-TUBE 04/11/16 10:30 02/11/17 08:47 (Zofran Inj) 4 mg Q6HR PRN IV PUSH 04/14/16 19:45 08/10/16 10:16 (Aspirin) 325 mg DAILY TUBE 05/27/16 11:40 02/11/17 08:47 (Heparin Inj) 5,000 units Q8HR SQ 06/11/16 14:00 02/11/17 13:26 (Baciguent Oint) 1 applic BID TOP 07/20/16 10:00 02/11/17 09:00 ([place]) 1 spray BID NASAL 08/01/16 21:00 02/11/17 09:00 (Tears Naturale Opth Soln) 1 drop BID EACH EYE 09/05/16 21:00 02/11/17 09:00 (Morphine Inj) 1 mg Q24H PRN IV PUSH 09/17/16 14:30 10/22/16 02:00 (Fleets Enema (Adult)) 133 ml UNSCH PRN [place] 09/25/16 16:00 (Dulcolax Supp) 10 mg DAILY PRN RECTAL 09/26/16 15:30 12/08/16 09:17 (Tylenol - Codeine 120-12 Liq) 5 ml Q4H PRN G-TUBE 12/27/16 15:30 02/06/17 17:05 (Flexeril) 5 mg HS PRN PEG 12/27/16 15:30 (Imodium Liq) 2 mg Q6H PRN PEG 12/27/16 15:30 01/24/17 20:05 (Milk Of Magnesia Liq) 30 ml DAILY PRN PEG 12/27/16 15:30 02/11/17 08:46 (Milk Of Magnesia Liq) 30 ml DAILY PEG 12/28/16 09:00 Hold 01/19/17 08:44 (Senna Liq) 8.8 mg DAILY@1600 PEG 12/27/16 16:00 02/07/17 17:13 (Lactulose Liq) 30 ml DAILY PRN PEG 12/27/16 15:30 (Cardizem) 30 mg QID PEG 01/09/17 18:00 02/11/17 08:47 (D50w (Vial) Inj) 50 ml UNSCH PRN IV 01/09/17 16:00 (Glucagon Inj) 1 mg UNSCH PRN OTHER 01/09/17 16:00 (Prevacid Odt) 30 mg BID NG 01/26/17 21:00 02/11/17 08:47 (Ashish Powder) 1 pack BID G-TUBE 02/10/17 21:00 Urinary Catheter: Yes Assessment to: Continue Arevalo insert reason: Prolonged Immobilization A/P Problem List: (1) CVA (cerebral vascular accident) ICD Code: I63.9 Status: Acute (2) A-fib ICD Code: I48.91 Status: Chronic (3) DM (diabetes mellitus) ICD Code: E11.9 Status: Chronic Assessment and Plan Mr. Flores is a 61 year-old male with past medical history of paroxysmal A. fib , hypertension, stage III non-Hodgkin's lymphoma status post chemotherapy who came into the hospital with altered mental status. 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 Awaiting information from CM about transfer to rehab. Status post brain biopsy on December 13: Path report - acute infarct, no evidence of lymphoma Depression Monitor neuro status Off sedation. On Keppra 500mg BID On Paxil 20 by mouth daily for depression. On Ativan 0.5 mg every 4 hours when necessary anxiety. On acetaminophen with codeine for pain scale of 2-10. Vent dependent respiratory failure, currently trached and on t-piece Right upper lobe/right middle lobe pulmonary nodules - outpatient CT scan without contrast in 6 months to follow-up Continue with oxygen keep sat >92%. Trach changed to size #6 XLT on 01/09 Duo nebs every 6 hours Leave on TP 10/02 as tolerated Pulm toilet, trach care 01/09 CTA chest: No PE, bilateral lower lobe infiltrates. 4 mm right upper lobe/5 mm right middle lobe nodule. Pulm is following - Dr. Taylor Right hallux ingrown toenail, paronychia - Operations Mgr has seen patient. I & D with partial nail avulsion performed at bedside 02/06/17. Dressing changed, c/d/i. - Continue to monitor. History of paroxysmal atrial fibrillation currently in sinus tachycardia Hypertension Dyslipidemia Monitor HR and BP keep MAP>65mmHg. O Continue ASA 325mg daily Cardizem 30mg QID Mild protein calorie malnutrition Gastroesophageal reflux disease Diarrhea, negative for C. difficile. Improved On Prevacid 30 mg Q12, on tube feeds(Jevity 1.5 at 55 ml/hr) Continue bowel regimen with hold parameters, Lactinex and Imodium. J tube clogged, IR consulted to evaluate. Klebsiella/Pseudomonas/staph aureus HCAP PSAE UTI S/p Cefepime. Monitor for signs of infections. strep pneumonia and Legionella urinary Ag is negative C-diff PCR negative on 01/13 01/09 BC : Staph Epi, Urine cx: Pseudomonas, Sputum cx: Pseudomonas, kleb, Staph. Patient was pancultured on 01/19 (Blood, sputum, urine) NGTD in urine and blood. Sputum + for pseudomonas. Microcytic anemia Stage III a non-Hodgkin's lymphoma - s/p chemotherapy 2014 Monitor CBC No further treatment recommended per heme oncology at this time. History of diabetes mellitus. A1c 5.5. Fingersticks have been stable. Stage IV decubitus ulcers -Dressing changes daily. Wound care last saw patient on 01/17/17, no new recommendations continue packing with Betadine moistened rolled Janis and covered with ABD pad and paper tape to secure. GI prophylaxis with Prevacid 30 mg Q12 DVT prophylaxis: SCD and Heparin SQ Discharge Planning Pt being evaluated by Jarrod. Problem Qualifiers (1) CVA (cerebral vascular accident): (2) DM (diabetes mellitus): Qualified Code: E11.9 - Type 2 diabetes mellitus without complications Javier Harris Jr. Feb 11, 2017 16:42
[2017-02-11] MEDS: PARoxetine HCL SUSP 20 MG/10 ML UDC PEG SCH (17:45)
[2017-02-11 17:51] VITALS: BP 116/70; PULSE 89; RESP 18; O2SAT 100
[2017-02-11 20:00] VITALS: BP 123/77; PULSE 83; RESP 19; TEMP 96.8; O2SAT 100
[2017-02-11] MEDS: JUVEN POWDER 1 PACK G-TUBE SCH (21:00)
[2017-02-12] VITALS (9 sets, daily range): BP systolic 100–122; BP diastolic 68–78; PULSE 85–95; RESP 17–19; TEMP 95.8–97.3; O2SAT 93–100
[2017-02-12] MEDS: ACETIC ACID 0.25% SOLN 1000 ML IRR BTL IRRIGATION SCH ×3 (05:00→21:09)
[2017-02-12] MEDS: HEPARIN SODIUM - SQ 10,000 UNITS/ML VIAL SQ SCH ×2 (06:00→14:24)
[2017-02-12] MEDS: LANSOPRAZOLE SOLUTAB 30 MG TAB NG SCH ×2 (08:10→21:00)
[2017-02-12] MEDS: levETIRAcetam 500 MG/5 ML UDC TUBE SCH ×2 (08:10→21:07)
[2017-02-12] MEDS: ASPIRIN 325 MG TAB TUBE SCH (08:10)
[2017-02-12] MEDS: DILTIAZEM HCL 30 MG TAB PEG SCH ×3 (08:10→17:46)
[2017-02-12] MEDS: NYSTATIN 100,000 U/GM PWD 15 GM BTL TOPICAL SCH ×2 (08:11→21:07)
[2017-02-12] MEDS: SODIUM CHLORIDE 0.65% NASAL SPRAY 45 ML BTL NASAL SCH ×2 (08:11→21:08)
[2017-02-12] MEDS: ARTIFICIAL TEARS OPTH SOLN 15 ML BTL EACH EYE SCH ×2 (08:15→21:08)
[2017-02-12] MEDS: BACITRACIN TOP OINT 15 GM TUBE TOP SCH ×2 (08:15→21:10)
[2017-02-12] MEDS: JUVEN POWDER 1 PACK G-TUBE SCH ×2 (10:00→21:00)
[2017-02-12 13:11] LABS: TRANSFERRIN IRON PROFILE 164 MG/DL (200-360)
--- NOTE | 2017-02-12 15:05 | HHI.PR ---
Subjective Remarks Follow up respiratory failure and diarrhea. Patient seen and examined, lying in bed. Eyes open, glasses on, tracking with eyes. Mother at bedside. No discomfort noted. Spoke to RN (Glen) and pt without acute issues overnight or since start of shift. Objective Vitals Vital Signs Date Time Temp Pulse Resp B/P Pulse Ox O2 Delivery O2 Flow Rate FiO2 02/12/17 13:00 88 17 110/73 96 02/12/17 12:00 95.8 85 17 100/68 97 02/12/17 09:45 99 T-piece 28 02/12/17 08:00 97 Trach Collar 5.00 02/12/17 08:00 96.2 85 17 122/78 100 02/12/17 08:00 97 Trach Collar 5.00 02/12/17 03:15 100 T-piece 5.00 02/12/17 00:00 97.0 89 19 120/71 93 02/11/17 20:00 99 T-Piece 5.00 02/11/17 20:00 96.8 83 19 123/77 100 02/11/17 17:51 89 18 116/70 100 02/11/17 16:07 96.0 93 18 111/69 97 I/O 02/11/17 02/11/17 02/11/17 02/12/17 02/12/17 02/12/17 06:59 14:59 22:59 06:59 14:59 22:59 Intake Total 716 ml 0 ml 766 ml 730 ml 839 ml Output Total 500 ml 450 ml 400 ml 900 ml 450 ml Balance 216 ml -450 ml 366 ml -170 ml 389 ml Intake Oral 0 ml 0 ml 0 ml 0 ml 0 ml IV Total 0 ml 0 ml 0 ml Tube Feeding 536 ml 586 ml 550 ml 479 ml Tube Irrigant 180 ml 180 ml 180 ml Other 360 ml Output Urine Total 500 ml 450 ml 400 ml 900 ml 450 ml # Bowel Movements 0 1 1 1 1 Result Diagram: 02/09/17 0419 Objective Remarks GENERAL: Pt encountered laying a bed, non-verbal, tracking people in room. Not in acute distress. SKIN: Warm and dry. tattoo noted on right forearm. HEAD: Normocephalic. EYES: Non-icteric without injection or drainage. NECK: Supple, trachea midline. T-tube in place. CARDIOVASCULAR: Regular rate and rhythm without murmurs, gallops, or rubs. RESPIRATORY: Breath sounds equal bilaterally. No accessory muscle use. Trach tube in place. Bedside monitor indicated oxygen saturation was 97%. GASTROINTESTINAL: Abdomen soft, non-tender, nondistended. GJ tube noted, area around insertion was dry and seemingly without leakage. MUSCULOSKELETAL: No cyanosis, or edema. Bilateral lower leg SCD's present. PSYCHIATRIC: Pt non-verbal, he appeared calm and not in distress. Pt followed command to follow finger over course of cardinal gaze. Pt did not squeeze examiner's hand when requested, nor follow any other commands. Procedures 07/22/2016 Wide excision of sacral skin wound, biopsy of the cavity lining and debridement. PEG removal and Gj tube placement 07/29/16 VAC changes- M-W-F 10/23/16, 11/18, 12/31- GJ tube replacement 01/02/16 PEG placement 01/02/16 tracheostomy Medications and IVs Current Medications Medications (Trade) Dose Ordered Sig/Junior Route Start Time Stop Time Status Last Admin (NS Flush) 2 ml UNSCH PRN IVF 12/21/15 06:00 09/28/16 21:18 (Keppra Liq) 500 mg Q12HR TUBE 12/27/15 21:00 02/12/17 08:10 (Tylenol 650 Mg/ 20 ml Liq) 650 mg Q6H PRN TUBE 12/30/15 15:15 01/18/17 21:34 (Mycostatin Powder) 1 applic Q12HR TOPICAL 01/08/16 21:00 02/12/17 08:11 (Pill Splitter) 1 ea UNSCH PRN OTHER 01/14/16 08:30 (Acetic Acid 0.25% Irr Btl) 10 ml Q8HR IRRIGATION 02/05/16 16:00 02/12/17 14:30 (Ativan Inj) 0.5 mg Q4H PRN IV PUSH 03/07/16 23:00 (Paxil Liq) 20 mg DAILY@1900 PEG 03/12/16 19:00 02/11/17 17:45 (Levsin) 0.25 mg Q4H PRN G-TUBE 04/11/16 10:30 02/11/17 08:47 (Zofran Inj) 4 mg Q6HR PRN IV PUSH 04/14/16 19:45 08/10/16 10:16 (Aspirin) 325 mg DAILY TUBE 05/27/16 11:40 02/12/17 08:10 (Heparin Inj) 5,000 units Q8HR SQ 06/11/16 14:00 02/12/17 14:24 (Baciguent Oint) 1 applic BID TOP 07/20/16 10:00 02/12/17 08:15 ([place]) 1 spray BID NASAL 08/01/16 21:00 02/12/17 08:11 (Tears Naturale Opth Soln) 1 drop BID EACH EYE 09/05/16 21:00 02/12/17 08:15 (Morphine Inj) 1 mg Q24H PRN IV PUSH 09/17/16 14:30 10/22/16 02:00 (Fleets Enema (Adult)) 133 ml UNSCH PRN CO 09/25/16 16:00 (Dulcolax Supp) 10 mg DAILY PRN RECTAL 09/26/16 15:30 12/08/16 09:17 (Tylenol - Codeine 120-12 Liq) 5 ml Q4H PRN G-TUBE 12/27/16 15:30 02/06/17 17:05 (Flexeril) 5 mg HS PRN PEG 12/27/16 15:30 (Imodium Liq) 2 mg Q6H PRN PEG 12/27/16 15:30 01/24/17 20:05 (Milk Of Magnesia Liq) 30 ml DAILY PRN PEG 12/27/16 15:30 02/11/17 08:46 (Milk Of Magnesia Liq) 30 ml DAILY PEG 12/28/16 09:00 Hold 01/19/17 08:44 (Senna Liq) 8.8 mg DAILY@1600 PEG 12/27/16 16:00 02/07/17 17:13 (Lactulose Liq) 30 ml DAILY PRN PEG 12/27/16 15:30 (Cardizem) 30 mg QID PEG 01/09/17 18:00 02/12/17 13:00 (D50w (Vial) Inj) 50 ml UNSCH PRN IV 01/09/17 16:00 (Glucagon Inj) 1 mg UNSCH PRN OTHER 01/09/17 16:00 (Prevacid Odt) 30 mg BID NG 01/26/17 21:00 02/12/17 08:10 (Ashish Powder) 1 pack BID G-TUBE 02/10/17 21:00 02/12/17 10:00 Urinary Catheter: Yes A/P Problem List: (1) CVA (cerebral vascular accident) ICD Code: I63.9 Status: Acute (2) A-fib ICD Code: I48.91 Status: Chronic (3) DM (diabetes mellitus) ICD Code: E11.9 Status: Chronic Assessment and Plan Mr. Flores is a 61 year-old male with past medical history of paroxysmal A. fib , hypertension, stage III non-Hodgkin's lymphoma status post chemotherapy who came into the hospital with altered mental status. 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 Awaiting information from CM about transfer to rehab. Microcytic anemia noted, iron studies ordered. Status post brain biopsy on December 13: Path report - acute infarct, no evidence of lymphoma Depression Monitor neuro status Off sedation. On Keppra 500mg BID On Paxil 20 by mouth daily for depression. On Ativan 0.5 mg every 4 hours when necessary anxiety. On acetaminophen with codeine for pain scale of 2-10. Vent dependent respiratory failure, currently trached and on t-piece Right upper lobe/right middle lobe pulmonary nodules - outpatient CT scan without contrast in 6 months to follow-up Continue with oxygen keep sat >92%. Trach changed to size #6 XLT on 01/09 Duo nebs every 6 hours Leave on TP 10/02 as tolerated Pulm toilet, trach care 01/09 CTA chest: No PE, bilateral lower lobe infiltrates. 4 mm right upper lobe/5 mm right middle lobe nodule. Pulm is following - Dr. Taylor Right hallux ingrown toenail, paronychia - [employer] has seen patient. I & D with partial nail avulsion performed at bedside 02/06/17. Dressing changed, c/d/i. - Continue to monitor. History of paroxysmal atrial fibrillation currently in sinus tachycardia Hypertension Dyslipidemia Monitor HR and BP keep MAP>65mmHg. O Continue ASA 325mg daily Cardizem 30mg QID Mild protein calorie malnutrition Gastroesophageal reflux disease Diarrhea, negative for C. difficile. Improved On Prevacid 30 mg Q12, on tube feeds(Jevity 1.5 at 55 ml/hr) Continue bowel regimen with hold parameters, Lactinex and Imodium. J tube clogged, IR consulted to evaluate. Klebsiella/Pseudomonas/staph aureus HCAP PSAE UTI S/p Cefepime. Monitor for signs of infections. strep pneumonia and Legionella urinary Ag is negative C-diff PCR negative on 01/13 01/09 BC : Staph Epi, Urine cx: Pseudomonas, Sputum cx: Pseudomonas, kleb, Staph. Patient was pancultured on 01/19 (Blood, sputum, urine) NGTD in urine and blood. Sputum + for pseudomonas. Microcytic anemia Stage III a non-Hodgkin's lymphoma - s/p chemotherapy 2014 Monitor CBC No further treatment recommended per heme oncology at this time. History of diabetes mellitus. A1c 5.5. Fingersticks have been stable. Stage IV decubitus ulcers -Dressing changes daily. Wound care last saw patient on 01/17/17, no new recommendations continue packing with Betadine moistened rolled Janis and covered with ABD pad and paper tape to secure. GI prophylaxis with Prevacid 30 mg Q12 DVT prophylaxis: SCD and Heparin SQ Case discussed with pt, his mother, RN, and Dr. Buck Discharge Planning Pt being evaluated by Jarrod. Problem Qualifiers (1) CVA (cerebral vascular accident): (2) DM (diabetes mellitus): Qualified Code: E11.9 - Type 2 diabetes mellitus without complications Javier Harris Jr. Feb 12, 2017 15:05
--- NOTE | 2017-02-12 15:36 | HHI.PR ---
Subjective Remarks ass OPENS EYES NO DISTRESS SAT 96% PULSE 88 Objective Vital Signs Date Time Temp Pulse Resp B/P Pulse Ox O2 Delivery O2 Flow Rate FiO2 02/12/17 13:00 88 17 110/73 96 02/12/17 12:00 95.8 85 17 100/68 97 02/12/17 09:45 99 T-piece 28 02/12/17 08:00 97 Trach Collar 5.00 02/12/17 08:00 96.2 85 17 122/78 100 02/12/17 08:00 97 Trach Collar 5.00 02/12/17 03:15 100 T-piece 5.00 02/12/17 00:00 97.0 89 19 120/71 93 02/11/17 20:00 99 T-Piece 5.00 02/11/17 20:00 96.8 83 19 123/77 100 02/11/17 17:51 89 18 116/70 100 02/11/17 16:07 96.0 93 18 111/69 97 I/O 02/11/17 02/11/17 02/11/17 02/12/17 02/12/17 02/12/17 07:00 15:00 23:00 07:00 15:00 23:00 Intake Total 716 ml 0 ml 766 ml 730 ml 839 ml Output Total 500 ml 450 ml 400 ml 900 ml 450 ml Balance 216 ml -450 ml 366 ml -170 ml 389 ml Intake Oral 0 ml 0 ml 0 ml 0 ml 0 ml IV Total 0 ml 0 ml 0 ml Tube Feeding 536 ml 586 ml 550 ml 479 ml Tube Irrigant 180 ml 180 ml 180 ml Other 360 ml Output Urine Total 500 ml 450 ml 400 ml 900 ml 450 ml # Bowel Movements 0 1 1 1 1 Result Diagram: 02/09/17 0419 Procedures 01/02/16 PEG placement 01/02/16 tracheostomy 07/22/2016 Wide excision of sacral skin wound, biopsy of the cavity lining and debridement. PEG tube replacement 07/29/16 Objective Remarks GENERAL: SKIN: Warm and dry. HEAD: Atraumatic. Normocephalic. EYES: Pupils equal and round. No scleral icterus. No injection or drainage. ENT: No nasal bleeding or discharge. Mucous membranes pink and moist. NECK: Trachea midline. No JVD. CARDIOVASCULAR: Regular rate and rhythm. RESPIRATORY: No accessory muscle use. Clear to auscultation. Breath sounds equal bilaterally. GASTROINTESTINAL: Abdomen soft, non-tender, nondistended. Hepatic and splenic margins not palpable. MUSCULOSKELETAL: Extremities without clubbing, cyanosis, or edema. No obvious deformities. NEUROLOGICAL: Awake and alert. No obvious cranial nerve deficits. Motor grossly within normal limits. Five out of 5 muscle strength in the arms and legs. Normal speech. PSYCHIATRIC: Appropriate mood and affect; insight and judgment normal. Laboratory Tests Test 01/05/17 01/06/17 08:35 08:41 Red Blood Count 4.43 MIL/MM3 (4.50-5.90) Hemoglobin 9.9 GM/DL (13.0-17.0) Hematocrit 32.0 % (39.0-51.0) Mean Corpuscular Volume 72.1 FL (80.0-100.0) Mean Corpuscular Hemoglobin 22.3 PG (27.0-34.0) Mean Corpuscular Hemoglobin 30.9 % Concent (32.0-36.0) Red Cell Distribution Width 19.9 % (11.6-17.2) Sodium Level 134 MEQ/L 133 MEQ/L (136-145) (136-145) Random Glucose 136 MG/DL 132 MG/DL (74-106) (74-106) Creatinine 0.59 MG/DL (0.60-1.30) GENERAL: SKIN: Warm and dry. HEAD: Atraumatic. Normocephalic. EYES: Pupils equal and round. No scleral icterus. No injection or drainage. ENT: No nasal bleeding or discharge. Mucous membranes pink and moist. NECK: Trachea midline. No JVD. TRACH. [place] CARDIOVASCULAR: Regular rate and rhythm. RESPIRATORY: No accessory muscle use. Clear to auscultation. Breath sounds equal bilaterally. GASTROINTESTINAL: Abdomen soft, non-tender, nondistended. Hepatic and splenic margins not palpable. MUSCULOSKELETAL: Extremities without clubbing, cyanosis, or edema. No obvious deformities. NEUROLOGICAL: Awake and alert. No obvious cranial nerve deficits. Motor grossly within normal limits. Five out of 5 muscle strength in the arms and legs. Normal speech. PSYCHIATRIC: Appropriate mood and affect; insight and judgment normal. Assessment and Plan Assessment and Plan impression respiratory failure CVA S/P TRACHEOSTOMY PLAN O2 NEEDED PULM. TOILET ANTIBIOTICS PER ID [place] poor Brandon,Brandon Wadie MD Feb 12, 2017 15:36
[2017-02-12] MEDS: SENNOSIDES SYRUP 8.8 MG/5 ML CUP PEG SCH (15:53)
[2017-02-12] MEDS: PARoxetine HCL SUSP 20 MG/10 ML UDC PEG SCH (17:46)
[2017-02-13] VITALS (8 sets, daily range): BP systolic 108–130; BP diastolic 71–80; PULSE 81–96; RESP 18–20; TEMP 95.2–97.2; O2SAT 97–100
[2017-02-13] MEDS: HEPARIN SODIUM - SQ 10,000 UNITS/ML VIAL SQ SCH ×4 (00:16→21:12)
[2017-02-13] MEDS: DILTIAZEM HCL 30 MG TAB PEG SCH ×5 (00:17→21:11)
[2017-02-13] MEDS: ACETIC ACID 0.25% SOLN 1000 ML IRR BTL IRRIGATION SCH ×3 (06:01→22:00)
[2017-02-13] MEDS: levETIRAcetam 500 MG/5 ML UDC TUBE SCH ×2 (08:19→21:00)
[2017-02-13] MEDS: ASPIRIN 325 MG TAB TUBE SCH (08:20)
[2017-02-13] MEDS: LANSOPRAZOLE SOLUTAB 30 MG TAB NG SCH ×2 (08:20→21:11)
[2017-02-13] MEDS: JUVEN POWDER 1 PACK G-TUBE SCH ×2 (08:21→21:00)
[2017-02-13] MEDS: NYSTATIN 100,000 U/GM PWD 15 GM BTL TOPICAL SCH ×2 (08:22→21:00)
[2017-02-13] MEDS: BACITRACIN TOP OINT 15 GM TUBE TOP SCH ×2 (08:22→21:00)
[2017-02-13] MEDS: SODIUM CHLORIDE 0.65% NASAL SPRAY 45 ML BTL NASAL SCH ×2 (08:22→21:11)
[2017-02-13] MEDS: ARTIFICIAL TEARS OPTH SOLN 15 ML BTL EACH EYE SCH ×2 (08:22→21:10)
--- NOTE | 2017-02-13 14:43 | HHI.PR ---
Subjective Remarks ass OPENS EYES NO DISTRESS SAT 96% PULSE 88 Objective Vital Signs Date Time Temp Pulse Resp B/P Pulse Ox O2 Delivery O2 Flow Rate FiO2 02/13/17 12:00 95.4 81 18 115/73 100 02/13/17 08:00 96.0 89 18 130/77 99 02/13/17 07:50 100 T-piece 28 02/13/17 00:00 97.2 96 20 129/80 97 02/12/17 22:34 98 T-piece 6.00 28 02/12/17 21:00 98 Trach Collar 5.00 28 T-Piece 02/12/17 20:00 97.3 95 18 109/69 97 02/12/17 16:00 96.8 87 17 115/69 98 I/O 02/12/17 02/12/17 02/12/17 02/13/17 02/13/17 02/13/17 07:00 15:00 23:00 07:00 15:00 23:00 Intake Total 730 ml 839 ml 517 ml 893 ml 0 ml Output Total 900 ml 450 ml 350 ml 1000 ml 600 ml Balance -170 ml 389 ml 167 ml -107 ml -600 ml Intake Oral 0 ml 0 ml 210 ml 0 ml IV Total 0 ml 0 ml 0 ml Tube Feeding 550 ml 479 ml 337 ml 503 ml Tube Irrigant 180 ml 180 ml 180 ml Other 360 ml Output Urine Total 900 ml 450 ml 350 ml 1000 ml 600 ml # Bowel Movements 1 1 0 0 0 Result Diagram: 02/09/17 0419 Procedures 01/02/16 PEG placement 01/02/16 tracheostomy 07/22/2016 Wide excision of sacral skin wound, biopsy of the cavity lining and debridement. PEG tube replacement 07/29/16 Objective Remarks GENERAL: SKIN: Warm and dry. HEAD: Atraumatic. Normocephalic. EYES: Pupils equal and round. No scleral icterus. No injection or drainage. ENT: No nasal bleeding or discharge. Mucous membranes pink and moist. NECK: Trachea midline. No JVD. CARDIOVASCULAR: Regular rate and rhythm. RESPIRATORY: No accessory muscle use. Clear to auscultation. Breath sounds equal bilaterally. GASTROINTESTINAL: Abdomen soft, non-tender, nondistended. Hepatic and splenic margins not palpable. MUSCULOSKELETAL: Extremities without clubbing, cyanosis, or edema. No obvious deformities. NEUROLOGICAL: Awake and alert. No obvious cranial nerve deficits. Motor grossly within normal limits. Five out of 5 muscle strength in the arms and legs. Normal speech. PSYCHIATRIC: Appropriate mood and affect; insight and judgment normal. Laboratory Tests Test 01/05/17 01/06/17 08:35 08:41 Red Blood Count 4.43 MIL/MM3 (4.50-5.90) Hemoglobin 9.9 GM/DL (13.0-17.0) Hematocrit 32.0 % (39.0-51.0) Mean Corpuscular Volume 72.1 FL (80.0-100.0) Mean Corpuscular Hemoglobin 22.3 PG (27.0-34.0) Mean Corpuscular Hemoglobin 30.9 % Concent (32.0-36.0) Red Cell Distribution Width 19.9 % (11.6-17.2) Sodium Level 134 MEQ/L 133 MEQ/L (136-145) (136-145) Random Glucose 136 MG/DL 132 MG/DL (74-106) (74-106) Creatinine 0.59 MG/DL (0.60-1.30) GENERAL: SKIN: Warm and dry. HEAD: Atraumatic. Normocephalic. EYES: Pupils equal and round. No scleral icterus. No injection or drainage. ENT: No nasal bleeding or discharge. Mucous membranes pink and moist. NECK: Trachea midline. No JVD. TRACH. [place] CARDIOVASCULAR: Regular rate and rhythm. RESPIRATORY: No accessory muscle use. Clear to auscultation. Breath sounds equal bilaterally. GASTROINTESTINAL: Abdomen soft, non-tender, nondistended. Hepatic and splenic margins not palpable. MUSCULOSKELETAL: Extremities without clubbing, cyanosis, or edema. No obvious deformities. NEUROLOGICAL: Awake and alert. No obvious cranial nerve deficits. Motor grossly within normal limits. Five out of 5 muscle strength in the arms and legs. Normal speech. PSYCHIATRIC: Appropriate mood and affect; insight and judgment normal. Assessment and Plan Assessment and Plan impression respiratory failure CVA S/P TRACHEOSTOMY PLAN O2 NEEDED PULM. TOILET ANTIBIOTICS PER ID [place] Brandon Moy MD Feb 13, 2017 14:43
[2017-02-13] MEDS: SENNOSIDES SYRUP 8.8 MG/5 ML CUP PEG SCH (16:00)
--- NOTE | 2017-02-13 17:39 | HHI.PR ---
Subjective Remarks Follow up respiratory failure and diarrhea. Patient seen and examined, lying in bed. Eyes variably open, glasses not present , tracking with eyes. Mother at bedside. No discomfort noted. Spoke to RN (Jocelyn) who reported J tube is clogged and she had called IR to assist. Otherwise pt without acute issues overnight or since start of shift. Objective Vitals Vital Signs Date Time Temp Pulse Resp B/P Pulse Ox O2 Delivery O2 Flow Rate FiO2 02/13/17 17:06 98 T-piece 6.00 28 02/13/17 16:00 95.2 91 18 108/71 98 02/13/17 12:00 95.4 81 18 115/73 100 02/13/17 08:00 96.0 89 18 130/77 99 02/13/17 07:50 100 T-piece 28 02/13/17 00:00 97.2 96 20 129/80 97 02/12/17 22:34 98 T-piece 6.00 28 02/12/17 21:00 98 Trach Collar 5.00 28 T-Piece 02/12/17 20:00 97.3 95 18 109/69 97 I/O 02/12/17 02/12/17 02/12/17 02/13/17 02/13/17 02/13/17 07:00 15:00 23:00 07:00 15:00 23:00 Intake Total 730 ml 839 ml 517 ml 893 ml 0 ml Output Total 900 ml 450 ml 350 ml 1000 ml 1050 ml Balance -170 ml 389 ml 167 ml -107 ml -1050 ml Intake Oral 0 ml 0 ml 210 ml 0 ml IV Total 0 ml 0 ml 0 ml Tube Feeding 550 ml 479 ml 337 ml 503 ml Tube Irrigant 180 ml 180 ml 180 ml Other 360 ml Output Urine Total 900 ml 450 ml 350 ml 1000 ml 600 ml Gastric Drainage Total 450 ml # Bowel Movements 1 1 0 0 0 Result Diagram: 02/09/17 0419 Objective Remarks GENERAL: Pt encountered laying a bed, non-verbal, tracking people in room. Not in acute distress. SKIN: Warm and dry. tattoo noted on right forearm. HEAD: Normocephalic. EYES: Non-icteric without injection or drainage. NECK: Supple, trachea midline. T-tube in place. CARDIOVASCULAR: Regular rate and rhythm without murmurs, gallops, or rubs. RESPIRATORY: Breath sounds equal bilaterally. No accessory muscle use. Trach tube in place. Bedside monitor indicated oxygen saturation was 97%. GASTROINTESTINAL: Abdomen soft, non-tender, nondistended. GJ tube noted, area around insertion was dry and seemingly without leakage. MUSCULOSKELETAL: No cyanosis, or edema. Bilateral lower leg SCD's present. PSYCHIATRIC: Pt non-verbal, he appeared calm and not in distress. Pt followed command to follow finger over course of cardinal gaze. Pt did not squeeze examiner's hand when requested, nor follow any other commands. Procedures 07/22/2016 Wide excision of sacral skin wound, biopsy of the cavity lining and debridement. PEG removal and Gj tube placement 07/29/16 VAC changes- M-W-F 10/23/16, 11/18, 12/31- GJ tube replacement 01/02/16 PEG placement 01/02/16 tracheostomy Medications and IVs Current Medications Medications (Trade) Dose Ordered Sig/Junior Route Start Time Stop Time Status Last Admin (NS Flush) 2 ml UNSCH PRN IVF 12/21/15 06:00 09/28/16 21:18 (Keppra Liq) 500 mg Q12HR TUBE 12/27/15 21:00 02/13/17 08:19 (Tylenol 650 Mg/ 20 ml Liq) 650 mg Q6H PRN TUBE 12/30/15 15:15 01/18/17 21:34 (Mycostatin Powder) 1 applic Q12HR TOPICAL 01/08/16 21:00 02/13/17 08:22 (Pill Splitter) 1 ea UNSCH PRN OTHER 01/14/16 08:30 (Acetic Acid 0.25% Irr Btl) 10 ml Q8HR IRRIGATION 02/05/16 16:00 02/13/17 14:05 (Ativan Inj) 0.5 mg Q4H PRN IV PUSH 03/07/16 23:00 (Paxil Liq) 20 mg DAILY@1900 PEG 03/12/16 19:00 02/12/17 17:46 (Levsin) 0.25 mg Q4H PRN G-TUBE 04/11/16 10:30 02/11/17 08:47 (Zofran Inj) 4 mg Q6HR PRN IV PUSH 04/14/16 19:45 08/10/16 10:16 (Aspirin) 325 mg DAILY TUBE 05/27/16 11:40 02/13/17 08:20 (Heparin Inj) 5,000 units Q8HR SQ 06/11/16 14:00 02/13/17 14:05 (Baciguent Oint) 1 applic BID TOP 07/20/16 10:00 02/13/17 08:22 ([place]) 1 spray BID NASAL 08/01/16 21:00 02/13/17 08:22 (Tears Naturale Opth Soln) 1 drop BID EACH EYE 09/05/16 21:00 02/13/17 08:22 (Morphine Inj) 1 mg Q24H PRN IV PUSH 09/17/16 14:30 10/22/16 02:00 (Fleets Enema (Adult)) 133 ml UNSCH PRN VT 09/25/16 16:00 (Dulcolax Supp) 10 mg DAILY PRN RECTAL 09/26/16 15:30 12/08/16 09:17 (Tylenol - Codeine 120-12 Liq) 5 ml Q4H PRN G-TUBE 12/27/16 15:30 02/06/17 17:05 (Imodium Liq) 2 mg Q6H PRN PEG 12/27/16 15:30 01/24/17 20:05 (Milk Of Magnesia Liq) 30 ml DAILY PRN PEG 12/27/16 15:30 02/11/17 08:46 (Milk Of Magnesia Liq) 30 ml DAILY PEG 12/28/16 09:00 Hold 01/19/17 08:44 (Senna Liq) 8.8 mg DAILY@1600 PEG 12/27/16 16:00 02/07/17 17:13 (Lactulose Liq) 30 ml DAILY PRN PEG 12/27/16 15:30 (Cardizem) 30 mg QID PEG 01/09/17 18:00 02/13/17 13:00 (D50w (Vial) Inj) 50 ml UNSCH PRN IV 01/09/17 16:00 (Glucagon Inj) 1 mg UNSCH PRN OTHER 01/09/17 16:00 (Prevacid Odt) 30 mg BID NG 01/26/17 21:00 02/13/17 08:20 (Ashish Powder) 1 pack BID G-TUBE 02/10/17 21:00 7/27/17 08:21 Urinary Catheter: No A/P Problem List: (1) CVA (cerebral vascular accident) ICD Code: I63.9 Status: Acute (2) A-fib ICD Code: I48.91 Status: Chronic (3) DM (diabetes mellitus) ICD Code: E11.9 Status: Chronic Assessment and Plan Mr. Flores is a 61 year-old male with past medical history of paroxysmal A. fib , hypertension, stage III non-Hodgkin's lymphoma status post chemotherapy who came into the hospital with altered mental status. Initial hospitalization [place] and cerebellar CVA with Basilar artery thrombosis Ir to come unclog J tube; tube feeding and medication administration otherwise continue. Iron deficiency noted on labs. Supplementation ordered. Status post brain biopsy on December 13: Path report - acute infarct, no evidence of lymphoma Depression Monitor neuro status Off sedation. On Keppra 500mg BID On Paxil 20 by mouth daily for depression. On Ativan 0.5 mg every 4 hours when necessary anxiety. On acetaminophen with codeine for pain scale of 2-10. Vent dependent respiratory failure, currently trached and on t-piece Right upper lobe/right middle lobe pulmonary nodules - outpatient CT scan without contrast in 6 months to follow-up Continue with oxygen keep sat >92%. Trach changed to size #6 XLT on 01/09 Duo nebs every 6 hours Leave on TP 10/02 as tolerated Pulm toilet, trach care 01/09 CTA chest: No PE, bilateral lower lobe infiltrates. 4 mm right upper lobe/5 mm right middle lobe nodule. Pulm is following - Dr. Taylor Right hallux ingrown toenail, paronychia - [facility] [employer] has seen patient. I & D with partial nail avulsion performed at bedside 02/06/17. Dressing changed, c/d/i. - Continue to monitor. History of paroxysmal atrial fibrillation currently in sinus tachycardia Hypertension Dyslipidemia Monitor HR and BP keep MAP>65mmHg. O Continue ASA 325mg daily Cardizem 30mg QID Mild protein calorie malnutrition Gastroesophageal reflux disease Diarrhea, negative for C. difficile. Improved On Prevacid 30 mg Q12, on tube feeds(Jevity 1.5 at 55 ml/hr) Continue bowel regimen with hold parameters, Lactinex and Imodium. J tube clogged, IR consulted to evaluate. Klebsiella/Pseudomonas/staph aureus HCAP PSAE UTI S/p Cefepime. Monitor for signs of infections. strep pneumonia and Legionella urinary Ag is negative C-diff PCR negative on 01/13 01/09 BC : Staph Epi, Urine cx: Pseudomonas, Sputum cx: Pseudomonas, kleb, Staph. Patient was pancultured on 01/19 (Blood, sputum, urine) NGTD in urine and blood. Sputum + for pseudomonas. Microcytic anemia Stage III a non-Hodgkin's lymphoma - s/p chemotherapy 2014 Monitor CBC No further treatment recommended per heme oncology at this time. History of diabetes mellitus. A1c 5.5. Fingersticks have been stable. Stage IV decubitus ulcers -Dressing changes daily. Wound care last saw patient on 01/17/17, no new recommendations continue packing with Betadine moistened rolled Janis and covered with ABD pad and paper tape to secure. GI prophylaxis with Prevacid 30 mg Q12 DVT prophylaxis: SCD and Heparin SQ Case discussed with pt, his mother, RN, and Dr. Buck Discharge Planning Pt being evaluated by Jarrod. Problem Qualifiers (1) CVA (cerebral vascular accident): (2) DM (diabetes mellitus): Qualified Code: E11.9 - Type 2 diabetes mellitus without complications Javier Harris Jr. Feb 13, 2017 17:39
[2017-02-13] MEDS: PARoxetine HCL SUSP 20 MG/10 ML UDC PEG SCH (18:04)
[2017-02-14] VITALS (7 sets, daily range): BP systolic 108–127; BP diastolic 70–79; PULSE 85–95; RESP 16–26; TEMP 96.1–98.1; O2SAT 96–100
[2017-02-14] MEDS: HEPARIN SODIUM - SQ 10,000 UNITS/ML VIAL SQ SCH ×3 (05:07→21:13)
[2017-02-14] MEDS: ACETIC ACID 0.25% SOLN 1000 ML IRR BTL IRRIGATION SCH ×3 (05:08→21:31)
[2017-02-14] MEDS: FERROUS SULFATE 300 MG /5ML UDC PO SCH (08:02)
[2017-02-14] MEDS: levETIRAcetam 500 MG/5 ML UDC TUBE SCH ×2 (08:02→21:16)
[2017-02-14] MEDS: LANSOPRAZOLE SOLUTAB 30 MG TAB NG SCH ×2 (08:02→21:13)
[2017-02-14] MEDS: DILTIAZEM HCL 30 MG TAB PEG SCH ×4 (08:02→21:00)
[2017-02-14] MEDS: ASPIRIN 325 MG TAB TUBE SCH (08:02)
[2017-02-14] MEDS: SODIUM CHLORIDE 0.65% NASAL SPRAY 45 ML BTL NASAL SCH ×2 (08:02→21:16)
[2017-02-14] MEDS: ARTIFICIAL TEARS OPTH SOLN 15 ML BTL EACH EYE SCH ×2 (08:02→21:16)
[2017-02-14] MEDS: NYSTATIN 100,000 U/GM PWD 15 GM BTL TOPICAL SCH ×2 (08:03→21:00)
[2017-02-14] MEDS: ASCORBIC ACID 500 MG TAB PO SCH (08:03)
[2017-02-14] MEDS: JUVEN POWDER 1 PACK G-TUBE SCH ×2 (08:03→21:00)
[2017-02-14] MEDS: BACITRACIN TOP OINT 15 GM TUBE TOP SCH ×2 (08:03→21:16)
--- NOTE | 2017-02-14 09:09 | HHI.PR ---
Subjective Remarks ass OPENS EYES NO DISTRESS Objective Vital Signs Date Time Temp Pulse Resp B/P Pulse Ox O2 Delivery O2 Flow Rate FiO2 02/14/17 08:00 98.0 95 26 120/79 100 02/14/17 00:00 98.1 94 18 127/72 100 02/13/17 20:00 96.4 93 18 117/76 100 02/13/17 17:53 117/73 02/13/17 17:06 98 T-piece 6.00 28 02/13/17 16:00 95.2 91 18 108/71 98 02/13/17 12:00 95.4 81 18 115/73 100 I/O 02/13/17 02/13/17 02/13/17 02/14/17 02/14/17 02/14/17 07:00 15:00 23:00 07:00 15:00 23:00 Intake Total 893 ml 0 ml Output Total 1000 ml 1050 ml 900 ml 600 ml Balance -107 ml -1050 ml -900 ml -600 ml Intake Oral 210 ml 0 ml IV Total 0 ml Tube Feeding 503 ml Tube Irrigant 180 ml Output Urine Total 1000 ml 600 ml 900 ml 600 ml Gastric Drainage Total 450 ml # Bowel Movements 0 0 0 Procedures 01/02/16 PEG placement 01/02/16 tracheostomy 07/22/2016 Wide excision of sacral skin wound, biopsy of the cavity lining and debridement. PEG tube replacement 07/29/16 Objective Remarks GENERAL: SKIN: Warm and dry. HEAD: Atraumatic. Normocephalic. EYES: Pupils equal and round. No scleral icterus. No injection or drainage. ENT: No nasal bleeding or discharge. Mucous membranes pink and moist. NECK: Trachea midline. No JVD. CARDIOVASCULAR: Regular rate and rhythm. RESPIRATORY: No accessory muscle use. Clear to auscultation. Breath sounds equal bilaterally. GASTROINTESTINAL: Abdomen soft, non-tender, nondistended. Hepatic and splenic margins not palpable. MUSCULOSKELETAL: Extremities without clubbing, cyanosis, or edema. No obvious deformities. NEUROLOGICAL: Awake and alert. No obvious cranial nerve deficits. Motor grossly within normal limits. Five out of 5 muscle strength in the arms and legs. Normal speech. PSYCHIATRIC: Appropriate mood and affect; insight and judgment normal. Laboratory Tests Test 01/05/17 01/06/17 08:35 08:41 Red Blood Count 4.43 MIL/MM3 (4.50-5.90) Hemoglobin 9.9 GM/DL (13.0-17.0) Hematocrit 32.0 % (39.0-51.0) Mean Corpuscular Volume 72.1 FL (80.0-100.0) Mean Corpuscular Hemoglobin 22.3 PG (27.0-34.0) Mean Corpuscular Hemoglobin 30.9 % Concent (32.0-36.0) Red Cell Distribution Width 19.9 % (11.6-17.2) Sodium Level 134 MEQ/L 133 MEQ/L (136-145) (136-145) Random Glucose 136 MG/DL 132 MG/DL (74-106) (74-106) Creatinine 0.59 MG/DL (0.60-1.30) GENERAL: SKIN: Warm and dry. HEAD: Atraumatic. Normocephalic. EYES: Pupils equal and round. No scleral icterus. No injection or drainage. ENT: No nasal bleeding or discharge. Mucous membranes pink and moist. NECK: Trachea midline. No JVD. TRACH. [place] CARDIOVASCULAR: Regular rate and rhythm. RESPIRATORY: No accessory muscle use. Clear to auscultation. Breath sounds equal bilaterally. GASTROINTESTINAL: Abdomen soft, non-tender, nondistended. Hepatic and splenic margins not palpable. MUSCULOSKELETAL: Extremities without clubbing, cyanosis, or edema. No obvious deformities. NEUROLOGICAL: Awake and alert. No obvious cranial nerve deficits. Motor grossly within normal limits. Five out of 5 muscle strength in the arms and legs. Normal speech. PSYCHIATRIC: Appropriate mood and affect; insight and judgment normal. Assessment and Plan Assessment and Plan impression respiratory failure CVA S/P TRACHEOSTOMY PLAN O2 NEEDED PULM. TOILET [place] poor Brandon Taylor MD Feb 14, 2017 09:09
--- NOTE | 2017-02-14 14:46 | HHI.PR ---
Subjective Remarks Follow up respiratory failure and diarrhea. Patient seen and examined, lying in bed. Eyes closed. Mother at bedside. No discomfort noted. Spoke to RN (Serena) who reported J tube is again clogged; she noted it had been cleared by IR previously in the week.Otherwise pt without acute issues overnight or since start of shift. Objective Vitals Vital Signs Date Time Temp Pulse Resp B/P Pulse Ox O2 Delivery O2 Flow Rate FiO2 02/14/17 12:47 100 T-piece 5.00 02/14/17 12:00 96.1 85 16 109/70 97 02/14/17 08:00 98.0 95 26 120/79 100 02/14/17 00:00 98.1 94 18 127/72 100 02/13/17 20:00 96.4 93 18 117/76 100 02/13/17 17:53 117/73 02/13/17 17:06 98 T-piece 6.00 02/13/17 16:00 95.2 91 18 108/71 98 I/O 02/13/17 02/13/17 02/13/17 02/14/17 02/14/17 02/14/17 06:59 14:59 22:59 06:59 14:59 22:59 Intake Total 893 ml 0 ml Output Total 1350 ml 1050 ml 900 ml 600 ml Balance -457 ml -1050 ml -900 ml -600 ml Intake Oral 210 ml 0 ml IV Total 0 ml Tube Feeding 503 ml Tube Irrigant 180 ml Output Urine Total 1350 ml 600 ml 900 ml 600 ml Gastric Drainage Total 450 ml # Bowel Movements 0 0 0 Objective Remarks GENERAL: Pt encountered laying a bed, non-verbal, not in acute distress. SKIN: Warm and dry. tattoo noted on right forearm. HEAD: Normocephalic. EYES: Non-icteric without injection or drainage. NECK: Supple, trachea midline. T-tube in place. CARDIOVASCULAR: Regular rate and rhythm without murmurs, gallops, or rubs. RESPIRATORY: Breath sounds equal bilaterally. No accessory muscle use. Trach tube in place. Bedside monitor indicated oxygen saturation was 100%. GASTROINTESTINAL: Abdomen soft, non-tender, nondistended. GJ tube noted, area around insertion was dry and seemingly without leakage. MUSCULOSKELETAL: No cyanosis, or edema. Bilateral lower leg SCD's present. PSYCHIATRIC: Pt non-verbal, he appeared calm and not in distress. Procedures 07/22/2016 Wide excision of sacral skin wound, biopsy of the cavity lining and debridement. PEG removal and Gj tube placement 07/29/16 VAC changes- M-W-F 10/23/16, 11/18, 12/31- GJ tube replacement 01/02/16 PEG placement 01/02/16 tracheostomy Medications and IVs Current Medications Medications (Trade) Dose Ordered Sig/Junior Route Start Time Stop Time Status Last Admin (NS Flush) 2 ml UNSCH PRN IVF 12/21/15 06:00 09/28/16 21:18 (Keppra Liq) 500 mg Q12HR TUBE 12/27/15 21:00 02/14/17 08:02 (Tylenol 650 Mg/ 20 ml Liq) 650 mg Q6H PRN TUBE 12/30/15 15:15 01/18/17 21:34 (Mycostatin Powder) 1 applic Q12HR TOPICAL 01/08/16 21:00 02/14/17 08:03 (Pill Splitter) 1 ea UNSCH PRN OTHER 01/14/16 08:30 (Acetic Acid 0.25% Irr Btl) 10 ml Q8HR IRRIGATION 02/05/16 16:00 02/14/17 13:59 (Ativan Inj) 0.5 mg Q4H PRN IV PUSH 03/07/16 23:00 (Paxil Liq) 20 mg DAILY@1900 PEG 03/12/16 19:00 02/13/17 18:04 (Levsin) 0.25 mg Q4H PRN G-TUBE 04/11/16 10:30 02/11/17 08:47 (Zofran Inj) 4 mg Q6HR PRN IV PUSH 04/14/16 19:45 08/10/16 10:16 (Aspirin) 325 mg DAILY TUBE 05/27/16 11:40 02/14/17 08:02 (Heparin Inj) 5,000 units Q8HR SQ 06/11/16 14:00 02/14/17 13:59 (Baciguent Oint) 1 applic BID TOP 07/20/16 10:00 02/14/17 08:03 ([place] Angel [place]) 1 spray BID NASAL 08/01/16 21:00 02/14/17 08:02 (Tears Naturale Opth Soln) 1 drop BID EACH EYE 09/05/16 21:00 02/14/17 08:02 (Morphine Inj) 1 mg Q24H PRN IV PUSH 09/17/16 14:30 10/22/16 02:00 (Fleets Enema (Adult)) 133 ml UNSCH PRN [place] 09/25/16 16:00 (Dulcolax Supp) 10 mg DAILY PRN RECTAL 09/26/16 15:30 12/08/16 09:17 (Tylenol - Codeine 120-12 Liq) 5 ml Q4H PRN G-TUBE 12/27/16 15:30 02/06/17 17:05 (Imodium Liq) 2 mg Q6H PRN PEG 12/27/16 15:30 01/24/17 20:05 (Milk Of Magnesia Liq) 30 ml DAILY PRN PEG 12/27/16 15:30 02/11/17 08:46 (Milk Of Magnesia Liq) 30 ml DAILY PEG 12/28/16 09:00 Hold 01/19/17 08:44 (Senna Liq) 8.8 mg DAILY@1600 PEG 12/27/16 16:00 02/07/17 17:13 (Lactulose Liq) 30 ml DAILY PRN PEG 12/27/16 15:30 (Cardizem) 30 mg QID PEG 01/09/17 18:00 02/14/17 08:02 (D50w (Vial) Inj) 50 ml UNSCH PRN IV 01/09/17 16:00 (Glucagon Inj) 1 mg UNSCH PRN OTHER 01/09/17 16:00 (Prevacid Odt) 30 mg BID NG 01/26/17 21:00 02/14/17 08:02 (Ashish Powder) 1 pack BID G-TUBE 02/10/17 21:00 02/14/17 08:03 (Ferrous Sulfate Liq) 300 mg DAILY PO 02/14/17 09:00 02/14/17 08:02 (Vitamin C) 1,000 mg DAILY PO 02/14/17 09:00 02/14/17 08:03 Urinary Catheter: Yes Assessment to: Continue Arevalo insert reason: Prolonged Immobilization A/P Problem List: (1) CVA (cerebral vascular accident) ICD Code: I63.9 Status: Acute (2) A-fib ICD Code: I48.91 Status: Chronic (3) DM (diabetes mellitus) ICD Code: E11.9 Status: Chronic Assessment and Plan Mr. Flores is a 61 year-old male with past medical history of paroxysmal A. fib , hypertension, stage III non-Hodgkin's lymphoma status post chemotherapy who came into the hospital with altered mental status. 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 Kangaroo pump delivering water at 30 ml/hour ordered. Status post brain biopsy on December 13: Path report - acute infarct, no evidence of lymphoma Depression Monitor neuro status Off sedation. On Keppra 500mg BID On Paxil 20 by mouth daily for depression. On Ativan 0.5 mg every 4 hours when necessary anxiety. On acetaminophen with codeine for pain scale of 2-10. Vent dependent respiratory failure, currently trached and on t-piece Right upper lobe/right middle lobe pulmonary nodules - outpatient CT scan without contrast in 6 months to follow-up Continue with oxygen keep sat >92%. Trach changed to size #6 XLT on 01/09 Duo nebs every 6 hours Leave on TP 24/ as tolerated Pulm toilet, trach care 01/09 CTA chest: No PE, bilateral lower lobe infiltrates. 4 mm right upper lobe/5 mm right middle lobe nodule. Pulm is following - Dr. Taylor Right hallux ingrown toenail, paronychia - Storekeeper Helper has seen patient. I & D with partial nail avulsion performed at bedside 02/06/17. Dressing changed, c/d/i. - Continue to monitor. History of paroxysmal atrial fibrillation currently in sinus tachycardia Hypertension Dyslipidemia Monitor HR and BP keep MAP>65mmHg. O Continue ASA 325mg daily Cardizem 30mg QID Mild protein calorie malnutrition Gastroesophageal reflux disease Diarrhea, negative for C. difficile. Improved On Prevacid 30 mg Q12, on tube feeds(Jevity 1.5 at 55 ml/hr) Continue bowel regimen with hold parameters, Lactinex and Imodium. J tube clogged, IR consulted to evaluate. Klebsiella/Pseudomonas/staph aureus HCAP PSAE UTI S/p Cefepime. Monitor for signs of infections. strep pneumonia and Legionella urinary Ag is negative C-diff PCR negative on 01/13 01/09 BC : Staph Epi, Urine cx: Pseudomonas, Sputum cx: Pseudomonas, kleb, Staph. Patient was pancultured on 01/19 (Blood, sputum, urine) NGTD in urine and blood. Sputum + for pseudomonas. Microcytic anemia Stage III a non-Hodgkin's lymphoma - s/p chemotherapy 2014 Monitor CBC No further treatment recommended per heme oncology at this time. History of diabetes mellitus. A1c 5.5. Fingersticks have been stable. Stage IV decubitus ulcers -Dressing changes daily. Wound care last saw patient on 01/17/17, no new recommendations continue packing with Betadine moistened rolled Janis and covered with ABD pad and paper tape to secure. GI prophylaxis with Prevacid 30 mg Q12 DVT prophylaxis: SCD and Heparin SQ Case discussed with pt, his mother (at bedside), RN, and Dr. Pruitt Discharge Planning Pt being evaluated by Jarrod. Discussed with CM about placement. CM stated discussions ongoing between [facility] and [facility] for possible transfer. Problem Qualifiers (1) CVA (cerebral vascular accident): (2) DM (diabetes mellitus): Qualified Code: E11.9 - Type 2 diabetes mellitus without complications Javier Harris Jr. Feb 14, 2017 14:46
[2017-02-14] MEDS: SENNOSIDES SYRUP 8.8 MG/5 ML CUP PEG SCH (15:24)
[2017-02-14] MEDS: PARoxetine HCL SUSP 20 MG/10 ML UDC PEG SCH (18:42)
[2017-02-15] VITALS (8 sets, daily range): BP systolic 105–115; BP diastolic 65–77; PULSE 88–98; RESP 16–24; TEMP 96.9–98; O2SAT 95–100
[2017-02-15] MEDS: HEPARIN SODIUM - SQ 10,000 UNITS/ML VIAL SQ SCH ×3 (05:30→21:04)
[2017-02-15] MEDS: ACETIC ACID 0.25% SOLN 1000 ML IRR BTL IRRIGATION SCH ×3 (05:31→21:03)
[2017-02-15] MEDS: ASPIRIN 325 MG TAB TUBE SCH (08:57)
[2017-02-15] MEDS: DILTIAZEM HCL 30 MG TAB PEG SCH ×4 (08:57→21:00)
[2017-02-15] MEDS: LANSOPRAZOLE SOLUTAB 30 MG TAB NG SCH ×2 (08:57→21:04)
[2017-02-15] MEDS: ASCORBIC ACID 500 MG TAB PO SCH (08:57)
[2017-02-15] MEDS: FERROUS SULFATE 300 MG /5ML UDC PO SCH (08:58)
[2017-02-15] MEDS: levETIRAcetam 500 MG/5 ML UDC TUBE SCH ×2 (08:58→21:03)
[2017-02-15] MEDS: SODIUM CHLORIDE 0.65% NASAL SPRAY 45 ML BTL NASAL SCH ×2 (08:59→21:02)
[2017-02-15] MEDS: BACITRACIN TOP OINT 15 GM TUBE TOP SCH ×3 (08:59→21:02)
[2017-02-15] MEDS: NYSTATIN 100,000 U/GM PWD 15 GM BTL TOPICAL SCH ×2 (08:59→21:03)
[2017-02-15] MEDS: ARTIFICIAL TEARS OPTH SOLN 15 ML BTL EACH EYE SCH ×2 (08:59→21:02)
[2017-02-15] MEDS: JUVEN POWDER 1 PACK G-TUBE SCH ×2 (09:00→21:00)
--- NOTE | 2017-02-15 15:31 | HHI.PR ---
Subjective Remarks Follow up respiratory failure and diarrhea. Patient seen and examined, lying in bed. Eyes generally closed but pt briefly opened them. Mother at bedside. No discomfort noted. Spoke to RN (Opal) who reported pt without acute issues overnight or since start of shift. Objective Vitals Vital Signs Date Time Temp Pulse Resp B/P Pulse Ox O2 Delivery O2 Flow Rate FiO2 02/15/17 12:15 98 T-piece 6.00 28 02/15/17 12:00 97.9 92 16 114/72 100 02/15/17 08:00 96.9 98 17 115/77 98 02/15/17 00:00 97.8 88 18 105/67 95 02/14/17 20:00 96.9 86 18 111/73 99 02/14/17 17:05 99 T-piece 6.00 28 02/14/17 16:00 96.6 91 17 108/72 96 I/O 02/14/17 02/14/17 02/14/17 02/15/17 02/15/17 02/15/17 07:00 15:00 23:00 07:00 15:00 23:00 Intake Total 690 ml 585 ml Output Total 600 ml 725 ml 900 ml 200 ml Balance -600 ml -725 ml -210 ml 385 ml Tube Feeding 450 ml 585 ml Tube Irrigant 240 ml Output Urine Total 600 ml 725 ml 900 ml 200 ml # Bowel Movements 2 Imaging Last Impressions Tube Change 01/24/17 0000 Signed Impressions: Service Date/Time: Tuesday, January 24, 2017 17:10 - CONCLUSION: Uncomplicated gastrojejunostomy tube exchange as above. Scott Griffin MD Chest X-Ray 01/20/17 0600 Signed Impressions: Service Date/Time: Friday, January 20, 2017 04:22 - CONCLUSION: 1. Bibasilar patchy densities, unchanged. 2. Tracheostomy tube unchanged. Mikie Vargas MD Head CT 01/09/17 0000 Signed Impressions: Service Date/Time: December 17:43 - CONCLUSION: 1. No acute hemorrhage or mass effect. 2. 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 3. Atrophy. Gerald Mukherjee MD CT Angiography 01/09/17 0000 Signed Impressions: Service Date/Time: December 17:49 - CONCLUSION: 1. No evidence of pulmonary emboli. 2. Patchy consolidation in both posterior lower lobes right greater than left. This could represent pneumonia. 3. 2 small noncalcified pulmonary nodules which are nonspecific finding. Short-term CT followup is recommended beginning in 6 months with a noncontrast outpatient CT. Gerald Mukherjee MD Tube Check 12/04/16 0000 Signed Impressions: Service Date/Time: Sunday, December 04, 2016 17:58 - CONCLUSION: Uncomplicated tube injection as above. the tube is in good position and functions normally. Moises Ramírez MD Abdomen X-Ray 08/31/16 0000 Signed Impressions: Service Date/Time: Wednesday, August 31, 2016 16:36 - CONCLUSION: 1. No acute findings. Mild constipation. Durga Dotson MD Abdomen/Pelvis CT 04/12/16 0000 Signed Impressions: Service Date/Time: Tuesday, April 12, 2016 20:52 - CONCLUSION: 1. 6.4 cm necrotic mass or abscess in the soft tissues posteriorly just below the sacrum associated with some bony destructive change of the lower most sacrum and coccyx with inflammatory changes extending into the ischiorectal fossa and into the presacral retroperitoneum predominantly on the left side. There is associated fairly marked mural thickening of the anal verge and rectum. 2. There is gastrostomy and Arevalo catheter present. Stable abdominal aortic aneurysm. Durga Dotson MD Head Magnetic Resonance Angiography 03/05/16 0000 Signed Impressions: Service Date/Time: Saturday, March 05, 2016 09:26 - CONCLUSION: Persistent high-grade subtotal occlusive stenotic lesions in the distal right vertebral artery and proximal basilar artery with significant improvement in flow and recanalization following initial presentation of thrombosis. Stable interstitial circulation without significant stenosis. 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 There is decreasing restricted diffusion and increasing loss of volume characteristic of a subacute to chronic infarct. No evidence of acute infarct, acute hemorrhage mass or edema. Ernesto Kulkarni MD Neck Magnetic Resonance Angiography 12/22/15 1445 Signed Impressions: Service Date/Time: Tuesday, December 22, 2015 09:22 - CONCLUSION: Variant origin of the left vertebral artery from the aortic arch. No evidence of carotid stenosis. Glen Zamora MD Head/Brain Mag Res Venography 12/22/15 0000 Signed Impressions: Service Date/Time: Tuesday, December 22, 2015 09:22 - CONCLUSION: Normal MRV. Jonel Jones Jr., MD Objective Remarks GENERAL: Pt encountered laying a bed, non-verbal, not in acute distress. Pt briefly opened eyes. SKIN: Warm and dry. tattoo noted on right forearm. HEAD: Normocephalic. EYES: Non-icteric without injection or drainage. Pt followed command to perform cardial gaze exam. NECK: Supple, trachea midline. T-tube in place. CARDIOVASCULAR: Regular rate and rhythm without murmurs, gallops, or rubs. RESPIRATORY: Breath sounds equal bilaterally. No accessory muscle use. Trach tube in place. Bedside monitor indicated oxygen saturation was 98%. GASTROINTESTINAL: Abdomen soft, non-tender, nondistended. GJ tube noted, area around insertion was dry and seemingly without leakage. MUSCULOSKELETAL: No cyanosis, or edema. Bilateral lower leg SCD's present. PSYCHIATRIC: Pt non-verbal, he appeared calm and not in distress. Procedures 07/22/2016 Wide excision of sacral skin wound, biopsy of the cavity lining and debridement. PEG removal and Gj tube placement 07/29/16 VAC changes- M-W-F 10/23/16, 11/18, 12/31- GJ tube replacement 01/02/16 PEG placement 01/02/16 tracheostomy Medications and IVs Current Medications Medications (Trade) Dose Ordered Sig/Junior Route Start Time Stop Time Status Last Admin (NS Flush) 2 ml UNSCH PRN IVF 12/21/15 06:00 09/28/16 21:18 (Keppra Liq) 500 mg Q12HR TUBE 12/27/15 21:00 02/15/17 08:58 (Tylenol 650 Mg/ 20 ml Liq) 650 mg Q6H PRN TUBE 12/30/15 15:15 01/18/17 21:34 (Mycostatin Powder) 1 applic Q12HR TOPICAL 01/08/16 21:00 02/15/17 08:59 (Pill Splitter) 1 ea UNSCH PRN OTHER 01/14/16 08:30 (Acetic Acid 0.25% Irr Btl) 10 ml Q8HR IRRIGATION 02/05/16 16:00 02/15/17 05:31 (Ativan Inj) 0.5 mg Q4H PRN IV PUSH 03/07/16 23:00 (Paxil Liq) 20 mg DAILY@1900 PEG 03/12/16 19:00 02/14/17 18:42 (Levsin) 0.25 mg Q4H PRN G-TUBE 04/11/16 10:30 02/11/17 08:47 (Zofran Inj) 4 mg Q6HR PRN IV PUSH 04/14/16 19:45 08/10/16 10:16 (Aspirin) 325 mg DAILY TUBE 05/27/16 11:40 02/15/17 08:57 (Heparin Inj) 5,000 units Q8HR SQ 06/11/16 14:00 02/15/17 14:00 (Baciguent Oint) 1 applic BID TOP 07/20/16 10:00 02/14/17 21:16 ([place] Angel [place]) 1 spray BID NASAL 08/01/16 21:00 02/15/17 08:59 (Tears Naturale Opth Soln) 1 drop BID EACH EYE 09/05/16 21:00 02/15/17 08:59 (Morphine Inj) 1 mg Q24H PRN IV PUSH 09/17/16 14:30 10/22/16 02:00 (Fleets Enema (Adult)) 133 ml UNSCH PRN [place] 09/25/16 16:00 (Dulcolax Supp) 10 mg DAILY PRN RECTAL 09/26/16 15:30 12/08/16 09:17 (Tylenol - Codeine 120-12 Liq) 5 ml Q4H PRN G-TUBE 12/27/16 15:30 02/06/17 17:05 (Imodium Liq) 2 mg Q6H PRN PEG 12/27/16 15:30 01/24/17 20:05 (Milk Of Magnesia Liq) 30 ml DAILY PRN PEG 12/27/16 15:30 02/11/17 08:46 (Milk Of Magnesia Liq) 30 ml DAILY PEG 12/28/16 09:00 Hold 01/19/17 08:44 (Senna Liq) 8.8 mg DAILY@1600 PEG 12/27/16 16:00 02/07/17 17:13 (Lactulose Liq) 30 ml DAILY PRN PEG 12/27/16 15:30 (Cardizem) 30 mg QID PEG 01/09/17 18:00 02/15/17 08:57 (D50w (Vial) Inj) 50 ml UNSCH PRN IV 01/09/17 16:00 (Glucagon Inj) 1 mg UNSCH PRN OTHER 01/09/17 16:00 (Prevacid Odt) 30 mg BID NG 01/26/17 21:00 02/15/17 08:57 (Ashish Powder) 1 pack BID G-TUBE 02/10/17 21:00 02/15/17 09:00 (Ferrous Sulfate Liq) 300 mg DAILY PO 02/14/17 09:00 02/15/17 08:58 (Vitamin C) 1,000 mg DAILY PO 02/14/17 09:00 02/15/17 08:57 Urinary Catheter: Yes Assessment to: Continue Arevalo insert reason: Prolonged Immobilization A/P Problem List: (1) CVA (cerebral vascular accident) ICD Code: I63.9 Status: Acute (2) A-fib ICD Code: I48.91 Status: Chronic (3) DM (diabetes mellitus) ICD Code: E11.9 Status: Chronic Assessment and Plan Mr. Flores is a 61 year-old male with past medical history of paroxysmal A. fib , hypertension, stage III non-Hodgkin's lymphoma status post chemotherapy who came into the hospital with altered mental status. Initial hospitalization [place] and cerebellar CVA with Basilar artery thrombosis J-G tube replaced late yesterday afternoon by IR. Status post brain biopsy on December 13: Path report - acute infarct, no evidence of lymphoma Depression Monitor neuro status Off sedation. On Keppra 500mg BID On Paxil 20 by mouth daily for depression. On Ativan 0.5 mg every 4 hours when necessary anxiety. On acetaminophen with codeine for pain scale of 2-10. Vent dependent respiratory failure, currently trached and on t-piece Right upper lobe/right middle lobe pulmonary nodules - outpatient CT scan without contrast in 6 months to follow-up Continue with oxygen keep sat >92%. Trach changed to size #6 XLT on 01/09 Duo nebs every 6 hours Leave on TP 24/7 as tolerated Pulm toilet, trach care 01/09 CTA chest: No PE, bilateral lower lobe infiltrates. 4 mm right upper lobe/5 mm right middle lobe nodule. Pul is following - Dr. Taylor Right hallux ingrown toenail, paronychia - [employer] Service Team Member has seen patient. I & D with partial nail avulsion performed at bedside 02/06/17. Dressing changed, c/d/i. - Continue to monitor. History of paroxysmal atrial fibrillation currently in sinus tachycardia Hypertension Dyslipidemia Monitor HR and BP keep MAP>65mmHg. O Continue ASA 325mg daily Cardizem 30mg QID Mild protein calorie malnutrition Gastroesophageal reflux disease Diarrhea, negative for C. difficile. Improved On Prevacid 30 mg Q12, on tube feeds(Jevity 1.5 at 55 ml/hr) Continue bowel regimen with hold parameters, Lactinex and Imodium. J tube clogged, IR consulted to evaluate. Klebsiella/Pseudomonas/staph aureus HCAP PSAE UTI S/p Cefepime. Monitor for signs of infections. strep pneumonia and Legionella urinary Ag is negative C-diff PCR negative on 01/13 01/09 BC : Staph Epi, Urine cx: Pseudomonas, Sputum cx: Pseudomonas, kleb, Staph. Patient was pancultured on 01/19 (Blood, sputum, urine) NGTD in urine and blood. Sputum + for pseudomonas. Microcytic anemia Stage III a non-Hodgkin's lymphoma - s/p chemotherapy 2014 Monitor CBC No further treatment recommended per heme oncology at this time. History of diabetes mellitus. A1c 5.5. Fingersticks have been stable. Stage IV decubitus ulcers -Dressing changes daily. Wound care last saw patient on 01/17/17, no new recommendations continue packing with Betadine moistened rolled Janis and covered with ABD pad and paper tape to secure. GI prophylaxis with Prevacid 30 mg Q12 DVT prophylaxis: SCD and Heparin SQ Case discussed with pt, his mother (at bedside), RN, and Dr. Pruitt Discharge Planning Pt being evaluated by Jarrod. Discussed with CM about placement. CM stated discussions ongoing between [facility] and [facility] for possible transfer. Problem Qualifiers (1) CVA (cerebral vascular accident): (2) DM (diabetes mellitus): Qualified Code: E11.9 - Type 2 diabetes mellitus without complications Javier Harris Jr. Feb 15, 2017 15:31
[2017-02-15] MEDS: SENNOSIDES SYRUP 8.8 MG/5 ML CUP PEG SCH (16:00)
[2017-02-15] MEDS: PARoxetine HCL SUSP 20 MG/10 ML UDC PEG SCH (17:48)
[2017-02-16] VITALS (8 sets, daily range): BP systolic 102–140; BP diastolic 55–76; PULSE 83–93; RESP 18–25; TEMP 95.8–97.8; O2SAT 94–100
[2017-02-16] MEDS: ACETIC ACID 0.25% SOLN 1000 ML IRR BTL IRRIGATION SCH ×3 (06:09→21:52)
[2017-02-16] MEDS: HEPARIN SODIUM - SQ 10,000 UNITS/ML VIAL SQ SCH ×3 (06:10→21:52)
[2017-02-16] MEDS: DILTIAZEM HCL 30 MG TAB PEG SCH ×4 (07:33→21:50)
[2017-02-16] MEDS: ASPIRIN 325 MG TAB TUBE SCH (07:33)
[2017-02-16] MEDS: ASCORBIC ACID 500 MG TAB PO SCH (07:34)
[2017-02-16] MEDS: LANSOPRAZOLE SOLUTAB 30 MG TAB NG SCH ×2 (07:34→21:50)
[2017-02-16] MEDS: FERROUS SULFATE 300 MG /5ML UDC PO SCH (07:34)
[2017-02-16] MEDS: levETIRAcetam 500 MG/5 ML UDC TUBE SCH ×2 (07:34→21:50)
[2017-02-16] MEDS: NYSTATIN 100,000 U/GM PWD 15 GM BTL TOPICAL SCH ×2 (07:35→21:00)
[2017-02-16] MEDS: SODIUM CHLORIDE 0.65% NASAL SPRAY 45 ML BTL NASAL SCH ×2 (07:35→21:51)
[2017-02-16] MEDS: BACITRACIN TOP OINT 15 GM TUBE TOP SCH ×2 (07:35→21:51)
[2017-02-16] MEDS: ARTIFICIAL TEARS OPTH SOLN 15 ML BTL EACH EYE SCH ×2 (07:35→21:51)
[2017-02-16] MEDS: JUVEN POWDER 1 PACK G-TUBE SCH ×2 (07:35→21:00)
--- NOTE | 2017-02-16 12:18 | HHI.PR ---
Subjective Remarks Follow up respiratory failure and diarrhea. Patient seen and examined, lying in bed. Eyes generally closed but pt briefly opened them. Mother at bedside. Mother reported bandage/covering of placed after recent G-J tube replacement was removed yesterday. No discomfort noted. Spoke to RN (Opal) who reported pt without acute issues overnight or since start of shift. Objective Vitals Vital Signs Date Time Temp Pulse Resp B/P Pulse Ox O2 Delivery O2 Flow Rate FiO2 02/16/17 08:00 95.8 86 25 140/74 98 02/16/17 06:45 97.4 89 18 102/68 100 02/16/17 00:00 97.8 93 18 110/68 94 02/15/17 20:37 99 T-piece 28 02/15/17 20:00 98.0 89 18 112/72 97 02/15/17 17:54 88 106/65 02/15/17 16:00 97.5 88 24 105/68 99 02/15/17 12:15 98 T-piece 6.00 28 I/O 02/15/17 02/15/17 02/15/17 02/16/17 02/16/17 02/16/17 06:59 14:59 22:59 06:59 14:59 22:59 Intake Total 585 ml 922 ml 834 ml Output Total 200 ml 1000 ml 425 ml Balance 385 ml -1000 ml 497 ml 834 ml Tube Feeding 585 ml 822 ml 513 ml Tube Irrigant 100 ml 321 ml Output Urine Total 200 ml 1000 ml 425 ml # Bowel Movements 3 1 Objective Remarks GENERAL: Pt encountered laying a bed, non-verbal, not in acute distress. Pt briefly opened eyes. SKIN: Warm and dry. Tattoo noted on right forearm. Right great toe healing from recent podiatry intervention; bandage removed and open to air for healing. HEAD: Normocephalic. EYES: Non-icteric without injection or drainage. Pt did not follow command to perform cardial gaze exam. NECK: Supple, trachea midline. T-tube in place. CARDIOVASCULAR: Regular rate and rhythm without murmurs, gallops, or rubs. RESPIRATORY: Breath sounds equal bilaterally. No accessory muscle use. Trach tube in place. Bedside monitor indicated oxygen saturation was 100%. GASTROINTESTINAL: Abdomen soft, non-tender, nondistended. GJ tube noted, gauze present in area around insertion was dry and seemingly without leakage. MUSCULOSKELETAL: No cyanosis, or edema. Bilateral lower leg SCD's present. PSYCHIATRIC: Pt non-verbal, he appeared calm and not in distress. Procedures 07/22/2016 Wide excision of sacral skin wound, biopsy of the cavity lining and debridement. PEG removal and Gj tube placement 07/29/16 VAC changes- M-W-F 10/23/16, 11/18, 12/31- GJ tube replacement 01/02/16 PEG placement 01/02/16 tracheostomy Medications and IVs Current Medications Medications (Trade) Dose Ordered Sig/Junior Route Start Time Stop Time Status Last Admin (NS Flush) 2 ml UNSCH PRN IVF 12/21/15 06:00 09/28/16 21:18 (Keppra Liq) 500 mg Q12HR TUBE 12/27/15 21:00 02/16/17 07:34 (Tylenol 650 Mg/ 20 ml Liq) 650 mg Q6H PRN TUBE 12/30/15 15:15 01/18/17 21:34 (Mycostatin Powder) 1 applic Q12HR TOPICAL 01/08/16 21:00 02/16/17 07:35 (Pill Splitter) 1 ea UNSCH PRN OTHER 01/14/16 08:30 (Acetic Acid 0.25% Irr Btl) 10 ml Q8HR IRRIGATION 02/05/16 16:00 02/16/17 06:09 (Paxil Liq) 20 mg DAILY@1900 PEG 03/12/16 19:00 02/15/17 17:48 (Levsin) 0.25 mg Q4H PRN G-TUBE 04/11/16 10:30 02/11/17 08:47 (Zofran Inj) 4 mg Q6HR PRN IV PUSH 04/14/16 19:45 08/10/16 10:16 (Aspirin) 325 mg DAILY TUBE 05/27/16 11:40 02/16/17 07:33 (Heparin Inj) 5,000 units Q8HR SQ 06/11/16 14:00 02/16/17 06:10 (Baciguent Oint) 1 applic BID TOP 07/20/16 10:00 02/16/17 07:35 ([place]) 1 spray BID NASAL 08/01/16 21:00 02/16/17 07:35 (Tears Naturale Opth Soln) 1 drop BID EACH EYE 09/05/16 21:00 02/16/17 07:35 (Morphine Inj) 1 mg Q24H PRN IV PUSH 09/17/16 14:30 10/22/16 02:00 (Dulcolax Supp) 10 mg DAILY PRN RECTAL 09/26/16 15:30 12/08/16 09:17 (Tylenol - Codeine 120-12 Liq) 5 ml Q4H PRN G-TUBE 12/27/16 15:30 02/06/17 17:05 (Imodium Liq) 2 mg Q6H PRN PEG 12/27/16 15:30 01/24/17 20:05 (Milk Of Magnesia Liq) 30 ml DAILY PRN PEG 12/27/16 15:30 02/11/17 08:46 (Milk Of Magnesia Liq) 30 ml DAILY PEG 12/28/16 09:00 Hold 01/19/17 08:44 (Senna Liq) 8.8 mg DAILY@1600 PEG 12/27/16 16:00 02/07/17 17:13 (Lactulose Liq) 30 ml DAILY PRN PEG 12/27/16 15:30 (Cardizem) 30 mg QID PEG 01/09/17 18:00 02/16/17 07:33 (D50w (Vial) Inj) 50 ml UNSCH PRN IV 01/09/17 16:00 (Glucagon Inj) 1 mg UNSCH PRN OTHER 01/09/17 16:00 (Prevacid Odt) 30 mg BID NG 01/26/17 21:00 02/16/17 07:34 (Ashish Powder) 1 pack BID G-TUBE 02/10/17 21:00 02/16/17 07:35 (Ferrous Sulfate Liq) 300 mg DAILY PO 02/14/17 09:00 02/16/17 07:34 (Vitamin C) 1,000 mg DAILY PO 02/14/17 09:00 02/16/17 07:34 Urinary Catheter: Yes Assessment to: Continue Arevalo insert reason: Prolonged Immobilization A/P Problem List: (1) CVA (cerebral vascular accident) ICD Code: I63.9 Status: Acute (2) A-fib ICD Code: I48.91 Status: Chronic (3) DM (diabetes mellitus) ICD Code: E11.9 Status: Chronic Assessment and Plan Mr. Flores is a 61 year-old male with past medical history of paroxysmal A. fib , hypertension, stage III non-Hodgkin's lymphoma status post chemotherapy who came into the hospital with altered mental status. Initial hospitalization [facility] and cerebellar CVA with Basilar artery thrombosis Ativan discontinued. Status post brain biopsy on December 13: Path report - acute infarct, no evidence of lymphoma Depression Monitor neuro status Off sedation. On Keppra 500mg BID On Paxil 20 by mouth daily for depression. On Ativan 0.5 mg every 4 hours when necessary anxiety. Discontinued 02/16/17 On acetaminophen with codeine for pain scale of 2-10. Vent dependent respiratory failure, currently trached and on t-piece Right upper lobe/right middle lobe pulmonary nodules - outpatient CT scan without contrast in 6 months to follow-up Continue with oxygen keep sat >92%. Trach changed to size #6 XLT on 01/09 Duo nebs every 6 hours Leave on TP 10/02 as tolerated Pulm toilet, trach care 01/09 CTA chest: No PE, bilateral lower lobe infiltrates. 4 mm right upper lobe/5 mm right middle lobe nodule. Pulm is following - Dr. Taylor Right hallux ingrown toenail, paronychia - Email Designer has seen patient. I & D with partial nail avulsion performed at bedside 02/06/17. Dressing changed, c/d/i. - Continue to monitor. -Bandage removed, toe left open to air to heal. History of paroxysmal atrial fibrillation currently in sinus tachycardia Hypertension Dyslipidemia Monitor HR and BP keep MAP>65mmHg. O Continue ASA 325mg daily Cardizem 30mg QID Mild protein calorie malnutrition Gastroesophageal reflux disease Diarrhea, negative for C. difficile. Improved On Prevacid 30 mg Q12, on tube feeds(Jevity 1.5 at 55 ml/hr) Continue bowel regimen with hold parameters, Lactinex and Imodium. J tube clogged, IR consulted to evaluate. Replaced on 02/14/17. Klebsiella/Pseudomonas/staph aureus HCAP PSAE UTI S/p Cefepime. Monitor for signs of infections. strep pneumonia and Legionella urinary Ag is negative C-diff PCR negative on 01/13 01/09 BC : Staph Epi, Urine cx: Pseudomonas, Sputum cx: Pseudomonas, kleb, Staph. Patient was pancultured on 01/19 (Blood, sputum, urine) NGTD in urine and blood. Sputum + for pseudomonas. Microcytic anemia Stage III a non-Hodgkin's lymphoma - s/p chemotherapy 2014 Monitor CBC No further treatment recommended per heme oncology at this time. History of diabetes mellitus. A1c 5.5. Fingersticks have been stable. Stage IV decubitus ulcers -Dressing changes daily. Wound care last saw patient on 01/17/17, no new recommendations continue packing with Betadine moistened rolled Janis and covered with ABD pad and paper tape to secure. GI prophylaxis with Prevacid 30 mg Q12 DVT prophylaxis: SCD and Heparin SQ Case discussed with pt, his mother (at bedside), RN, and Dr. Pruitt Discharge Planning Pt being evaluated by [facility]. Discussed with CM about placement. CM stated discussions ongoing between [facility] and [facility] for possible transfer. Problem Qualifiers (1) CVA (cerebral vascular accident): (2) DM (diabetes mellitus): Qualified Code: E11.9 - Type 2 diabetes mellitus without complications Javier Harris Jr. Feb 16, 2017 12:18
[2017-02-16] MEDS: SENNOSIDES SYRUP 8.8 MG/5 ML CUP PEG SCH (13:46)
[2017-02-16] MEDS: PARoxetine HCL SUSP 20 MG/10 ML UDC PEG SCH (18:17)
[2017-02-17] VITALS (7 sets, daily range): BP systolic 104–122; BP diastolic 60–78; PULSE 81–91; RESP 16–22; TEMP 95.6–96.7; O2SAT 98–100
[2017-02-17] MEDS: HEPARIN SODIUM - SQ 10,000 UNITS/ML VIAL SQ SCH ×3 (04:54→20:55)
[2017-02-17] MEDS: ACETIC ACID 0.25% SOLN 1000 ML IRR BTL IRRIGATION SCH ×3 (04:55→20:56)
[2017-02-17] MEDS: JUVEN POWDER 1 PACK G-TUBE SCH ×3 (09:00→20:54)
--- NOTE | 2017-02-17 09:15 | RADRPT ---
EXAM DATE/TIME: 02/14/2017 00:00 [facility] COMPARISON: CHANGE OF GJ-TUBE CATHETER, January 24, 2017, 17:10. INDICATIONS : Patient presents with clogged transgatric tube in need of exchange for nutrition. MEDICAL HISTORY : HTN Diabetes Afib Stage 3 non-Hodgkin's lymphoma SURGICAL HISTORY : Brain biopsy L arm sx ENCOUNTER: Initial ACUITY: >1 year PAIN SCORE: 0/10 LOCATION: N/A FLUORO TIME: 1.4 minutes IMAGE SERIES: 0 CONTRAST: 10 cc Omnipaque (iohexol) 350 DEVICE(S): 1.) 22 [place] Transgastric tube TECH NOTE: Unable to obtain fluoroscopy images. Transgastric catheter was exchanged over the wire.ORLANDO MENDEZ MR#[id number] :55 Exam date/desc:February 14, 2017CHANGE OF GJ-TUBE CATHETER PROCEDURE : 1. Fluoroscopically guided gastrojejunostomy tube exchange. 2. Conscious sedation with continuous EKG and oximetry monitoring. The risks, benefits and alternatives to the procedure were explained and verbal and written consent w as obtained. The site was prepped in sterile fashion. Full sterile technique was used, including ca p, mask, sterile gloves and gown and a large sterile sheet. Hand hygiene and 2% chlorhexidine and/or betadine/alcohol prep was utilized per protocol for cutaneous antisepsis. The skin and subcutaneous tissues were infiltrated with local anesthetic solution. With fluoroscopic guidance a guidewire was passed through the previous gastrojejunostomy tube and a f resh tube was placed over the guidewire. The balloon was inflated with appropriate volume of saline. Injection of positive contrast demonstrates good position of the gastric and jejunal lumens of the tube. Conscious sedation was performed with the prescribed dosages and duration as above in the presence of an independent trained radiology nurse to assist in the monitoring of the patient. EKG and oximetry remained stable throughout the procedure. The patient tolerated the procedure well and there were n o complications. The patient was sent to post anesthesia recovery in stable condition. CONCLUSION: Uncomplicated gastrojejunostomy tube exchange as above. Scott Griffin MD on February 17, 2017 at 9:13 Board Certified Radiologist. This report was verified electronically.
[2017-02-17] MEDS: ASPIRIN 325 MG TAB TUBE SCH (09:49)
[2017-02-17] MEDS: DILTIAZEM HCL 30 MG TAB PEG SCH ×4 (09:49→21:02)
[2017-02-17] MEDS: ASCORBIC ACID 500 MG TAB PO SCH (09:49)
[2017-02-17] MEDS: LANSOPRAZOLE SOLUTAB 30 MG TAB NG SCH ×2 (09:49→20:54)
[2017-02-17] MEDS: levETIRAcetam 500 MG/5 ML UDC TUBE SCH ×2 (09:50→20:54)
[2017-02-17] MEDS: NYSTATIN 100,000 U/GM PWD 15 GM BTL TOPICAL SCH ×2 (09:51→20:57)
[2017-02-17] MEDS: ARTIFICIAL TEARS OPTH SOLN 15 ML BTL EACH EYE SCH ×2 (09:51→20:57)
[2017-02-17] MEDS: BACITRACIN TOP OINT 15 GM TUBE TOP SCH ×2 (09:51→20:57)
[2017-02-17] MEDS: SODIUM CHLORIDE 0.65% NASAL SPRAY 45 ML BTL NASAL SCH ×2 (09:51→20:57)
[2017-02-17] MEDS: FERROUS SULFATE 300 MG /5ML UDC PO SCH (10:00)
--- NOTE | 2017-02-17 15:09 | HHI.PR ---
Subjective Remarks Follow up respiratory failure and diarrhea. Patient seen and examined, mother at bedside. Spoke to RN, no new acute events overnight. Patient lying in bed comfortably, no apparent distress. Tolerating TF, GJ tube patent. Afebrile. T- piece in place. Objective Vitals Vital Signs Date Time Temp Pulse Resp B/P Pulse Ox O2 Delivery O2 Flow Rate FiO2 02/17/17 12:00 96.7 86 22 117/60 98 02/17/17 10:00 98 T-Piece 6.00 02/17/17 09:37 100 T-piece 5.00 28 02/17/17 08:00 95.9 87 22 122/78 99 02/17/17 00:00 96.0 81 20 107/76 99 02/16/17 21:00 98 Trach Collar 6.00 T-Piece 02/16/17 20:00 96.8 83 20 113/72 98 02/16/17 18:29 88 116/76 99 02/16/17 16:00 96.2 85 20 120/55 95 I/O 02/16/17 02/16/17 02/16/17 02/17/17 02/17/17 02/17/17 07:00 15:00 23:00 07:00 15:00 23:00 Intake Total 834 ml 1304 ml 0 ml 796 ml Output Total 450 ml 750 ml 400 ml Balance 834 ml -450 ml 554 ml -400 ml 796 ml Intake Oral 0 ml 0 ml Tube Feeding 513 ml 843 ml 486 ml Tube Irrigant 321 ml 461 ml 180 ml Other 130 ml Output Urine Total 450 ml 750 ml 400 ml # Bowel Movements 2 2 2 Imaging Last Impressions Tube Change 02/14/17 0000 Signed Impressions: Service Date/Time: Tuesday, February 14, 2017 00:00 - CONCLUSION: Uncomplicated gastrojejunostomy tube exchange as above. Scott Griffin MD Chest X-Ray 01/20/17 0600 Signed Impressions: Service Date/Time: Friday, January 20, 2017 04:22 - CONCLUSION: 1. Bibasilar patchy densities, unchanged. 2. Tracheostomy tube unchanged. Mikie Vargas MD Head CT 01/09/17 0000 Signed Impressions: Service Date/Time: December 17:43 - CONCLUSION: 1. No acute hemorrhage or mass effect. 2. 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 3. Atrophy. Gerald Mukherjee MD CT Angiography 01/09/17 0000 Signed Impressions: Service Date/Time: December 17:49 - CONCLUSION: 1. No evidence of pulmonary emboli. 2. Patchy consolidation in both posterior lower lobes right greater than left. This could represent pneumonia. 3. 2 small noncalcified pulmonary nodules which are nonspecific finding. Short-term CT followup is recommended beginning in 6 months with a noncontrast outpatient CT. Gerald Mukherjee MD Tube Check 12/04/16 0000 Signed Impressions: Service Date/Time: Sunday, December 04, 2016 17:58 - CONCLUSION: Uncomplicated tube injection as above. the tube is in good position and functions normally. Moises Ramírez MD Abdomen X-Ray 08/31/16 0000 Signed Impressions: Service Date/Time: Wednesday, August 31, 2016 16:36 - CONCLUSION: 1. No acute findings. Mild constipation. Durga Dotson MD Abdomen/Pelvis CT 04/12/16 0000 Signed Impressions: Service Date/Time: Tuesday, April 12, 2016 20:52 - CONCLUSION: 1. 6.4 cm necrotic mass or abscess in the soft tissues posteriorly just below the sacrum associated with some bony destructive change of the lower most sacrum and coccyx with inflammatory changes extending into the ischiorectal fossa and into the presacral retroperitoneum predominantly on the left side. There is associated fairly marked mural thickening of the anal verge and rectum. 2. There is gastrostomy and Arevalo catheter present. Stable abdominal aortic aneurysm. Durga Dotson MD Head Magnetic Resonance Angiography 03/05/16 0000 Signed Impressions: Service Date/Time: Saturday, March 05, 2016 09:26 - CONCLUSION: Persistent high-grade subtotal occlusive stenotic lesions in the distal right vertebral artery and proximal basilar artery with significant improvement in flow and recanalization following initial presentation of thrombosis. Stable interstitial circulation without significant stenosis. 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 There is decreasing restricted diffusion and increasing loss of volume characteristic of a subacute to chronic infarct. No evidence of acute infarct, acute hemorrhage mass or edema. Ernesto Kulkarni MD Neck Magnetic Resonance Angiography 12/22/15 1445 Signed Impressions: Service Date/Time: Tuesday, December 22, 2015 09:22 - CONCLUSION: Variant origin of the left vertebral artery from the aortic arch. No evidence of carotid stenosis. Glen Zamora MD Head/Brain Mag Res Venography 12/22/15 0000 Signed Impressions: Service Date/Time: Tuesday, December 22, 2015 09:22 - CONCLUSION: Normal MRV. Jonel Jones Jr., MD Objective Remarks GENERAL: Non-verbal, lethargic, opens eyes to voice and command, tracking people in room. Not in acute distress. SKIN: Warm and dry. HEENT: Normocephalic. Pupils nonicteric. Nose without bleeding. Airway patent. NECK: Supple, trachea midline. T-tube in place, site clean, dry, intact. No JVD. CARDIOVASCULAR: Regular rate and rhythm. No murmur appreciated. RESPIRATORY: Breath sounds equal bilaterally. No accessory muscle use. Trach tube in place. Bedside monitor indicated oxygen saturation was 99%. GASTROINTESTINAL: Abdomen soft, non-tender, nondistended. GJ tube noted, area around insertion was clean, dry, dressing intact. J tube clogged. MUSCULOSKELETAL: No cyanosis, or edema. PSYCHIATRIC: Pt non-verbal. Procedures 07/22/2016 Wide excision of sacral skin wound, biopsy of the cavity lining and debridement. PEG removal and Gj tube placement 07/29/16 VAC changes- M-W-F 10/23/16, 11/18, 12/31- GJ tube replacement 01/02/16 PEG placement 01/02/16 tracheostomy A/P Problem List: (1) CVA (cerebral vascular accident) ICD Code: I63.9 Status: Acute (2) A-fib ICD Code: I48.91 Status: Chronic (3) DM (diabetes mellitus) ICD Code: E11.9 Status: Chronic Assessment and Plan Mr. Flores is a 60 year-old male with past medical history of paroxysmal A. fib , hypertension, stage III non-Hodgkin's lymphoma status post chemotherapy who came into the hospital with altered mental status. 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 On Keppra 500mg BID On Paxil 20 by mouth daily for depression. On Ativan 0.5 mg every 4 hours when necessary anxiety. On acetaminophen with codeine for pain scale of 2-10. Vent dependent respiratory failure, currently trached and on t-piece Right upper lobe/right middle lobe pulmonary nodules - outpatient CT scan without contrast in 6 months to follow-up Continue with oxygen keep sat >92%. Trach changed to size #6 XLT on 01/09 Duo nebs every 6 hours Leave on TP 10/02 as tolerated Pulm toilet, trach care 01/09 CTA chest: No PE, bilateral lower lobe infiltrates. 4 mm right upper lobe/5 mm right middle lobe nodule. Pulm is following - Dr. Taylor Right hallux ingrown toenail, paronychia - Architecture Department Chair has seen patient. I & D with partial nail avulsion performed at bedside 02/06/17. Toe now MARINO. No drainage noted. History of paroxysmal atrial fibrillation currently in sinus tachycardia Hypertension Dyslipidemia Monitor HR and BP keep MAP>65mmHg. O Continue ASA 325mg daily Cardizem 30mg QID Mild protein calorie malnutrition Gastroesophageal reflux disease Diarrhea, negative for C. difficile. Improved On Prevacid 30 mg Q12, on tube feeds(Jevity 1.5 at 55 ml/hr) Continue bowel regimen with hold parameters, Lactinex and Imodium. Replaced 02/14/17 Klebsiella/Pseudomonas/staph aureus HCAP PSAE UTI S/p Cefepime. Monitor for signs of infections. strep pneumonia and Legionella urinary Ag is negative C-diff PCR negative on 01/13 01/09 BC : Staph Epi, Urine cx: Pseudomonas, Sputum cx: Pseudomonas, kleb, Staph. Patient was pancultured on 01/19 (Blood, sputum, urine) NGTD in urine and blood. Sputum + for pseudomonas. Microcytic anemia Stage III a non-Hodgkin's lymphoma - s/p chemotherapy 2014 Monitor CBC No further treatment recommended per heme oncology at this time. Stage IV decubitus ulcers -Dressing changes daily. Wound care last saw patient on 01/17/17, no new recommendations continue packing with Betadine moistened rolled Janis and covered with ABD pad and paper tape to secure. GI prophylaxis with Prevacid 30 mg Q12 DVT prophylaxis: SCD and Heparin SQ Discharge Planning CM stated discussions ongoing between [facility] and [facility] for possible transfer. Problem Qualifiers (1) CVA (cerebral vascular accident): (2) DM (diabetes mellitus): Qualified Code: E11.9 - Type 2 diabetes mellitus without complications Haley Seymour Feb 17, 2017 15:09
[2017-02-17] MEDS: SENNOSIDES SYRUP 8.8 MG/5 ML CUP PEG SCH (16:00)
--- NOTE | 2017-02-17 16:58 | HHI.PR ---
Subjective Remarks ass OPENS EYES NO DISTRESS Objective Vital Signs Date Time Temp Pulse Resp B/P Pulse Ox O2 Delivery O2 Flow Rate FiO2 02/17/17 12:00 96.7 86 22 117/60 98 02/17/17 10:00 98 T-Piece 6.00 02/17/17 09:37 100 T-piece 5.00 28 02/17/17 08:00 95.9 87 22 122/78 99 02/17/17 00:00 96.0 81 20 107/76 99 02/16/17 21:00 98 Trach Collar 6.00 T-Piece 02/16/17 20:00 96.8 83 20 113/72 98 02/16/17 18:29 88 116/76 99 I/O 02/16/17 02/16/17 02/16/17 02/17/17 02/17/17 02/17/17 07:00 15:00 23:00 07:00 15:00 23:00 Intake Total 834 ml 1304 ml 0 ml 796 ml Output Total 450 ml 750 ml 400 ml Balance 834 ml -450 ml 554 ml -400 ml 796 ml Intake Oral 0 ml 0 ml Tube Feeding 513 ml 843 ml 486 ml Tube Irrigant 321 ml 461 ml 180 ml Other 130 ml Output Urine Total 450 ml 750 ml 400 ml # Bowel Movements 2 2 2 1 Procedures 01/02/16 PEG placement 01/02/16 tracheostomy 07/22/2016 Wide excision of sacral skin wound, biopsy of the cavity lining and debridement. PEG tube replacement 07/29/16 Objective Remarks GENERAL: SKIN: Warm and dry. HEAD: Atraumatic. Normocephalic. EYES: Pupils equal and round. No scleral icterus. No injection or drainage. ENT: No nasal bleeding or discharge. Mucous membranes pink and moist. NECK: Trachea midline. No JVD. CARDIOVASCULAR: Regular rate and rhythm. RESPIRATORY: No accessory muscle use. Clear to auscultation. Breath sounds equal bilaterally. GASTROINTESTINAL: Abdomen soft, non-tender, nondistended. Hepatic and splenic margins not palpable. MUSCULOSKELETAL: Extremities without clubbing, cyanosis, or edema. No obvious deformities. NEUROLOGICAL: Awake and alert. No obvious cranial nerve deficits. Motor grossly within normal limits. Five out of 5 muscle strength in the arms and legs. Normal speech. PSYCHIATRIC: Appropriate mood and affect; insight and judgment normal. Laboratory Tests Test 01/05/17 01/06/17 08:35 08:41 Red Blood Count 4.43 MIL/MM3 (4.50-5.90) Hemoglobin 9.9 GM/DL (13.0-17.0) Hematocrit 32.0 % (39.0-51.0) Mean Corpuscular Volume 72.1 FL (80.0-100.0) Mean Corpuscular Hemoglobin 22.3 PG (27.0-34.0) Mean Corpuscular Hemoglobin 30.9 % Concent (32.0-36.0) Red Cell Distribution Width 19.9 % (11.6-17.2) Sodium Level 134 MEQ/L 133 MEQ/L (136-145) (136-145) Random Glucose 136 MG/DL 132 MG/DL (74-106) (74-106) Creatinine 0.59 MG/DL (0.60-1.30) GENERAL: SKIN: Warm and dry. HEAD: Atraumatic. Normocephalic. EYES: Pupils equal and round. No scleral icterus. No injection or drainage. ENT: No nasal bleeding or discharge. Mucous membranes pink and moist. NECK: Trachea midline. No JVD. TRACH. [place] CARDIOVASCULAR: Regular rate and rhythm. RESPIRATORY: No accessory muscle use. Clear to auscultation. Breath sounds equal bilaterally. GASTROINTESTINAL: Abdomen soft, non-tender, nondistended. Hepatic and splenic margins not palpable. MUSCULOSKELETAL: Extremities without clubbing, cyanosis, or edema. No obvious deformities. NEUROLOGICAL: Awake and alert. No obvious cranial nerve deficits. Motor grossly within normal limits. Five out of 5 muscle strength in the arms and legs. Normal speech. PSYCHIATRIC: Appropriate mood and affect; insight and judgment normal. Assessment and Plan Assessment and Plan impression respiratory failure CVA S/P TRACHEOSTOMY PLAN O2 NEEDED PULM. TOILET [place] poor Brandon Taylor MD Feb 17, 2017 16:58
[2017-02-17] MEDS: PARoxetine HCL SUSP 20 MG/10 ML UDC PEG SCH (18:11)
--- NOTE | 2017-02-17 20:58 | HHI.PR ---
Subjective Subjective Comments Family at bedside performing range of motion. Patient is resting comfortably in bed. Easily wakes to voice and opens eyes. Allergies: Coded Allergies: *MDRO Multi-Drug Resistant Organism (Verified Adverse Reaction, Unknown, ) MRSA (sputum) - 03/08/16, 04/03/2016 MDR-Pseudomonas Aeruginosa (urine)-08/25/16 Review of Systems All other ROS: Unable to obtain Exam I&O / VS 02/16/17 02/16/17 02/17/17 15:00 23:00 07:00 Intake Total 1304 ml 0 ml Output Total 450 ml 750 ml 400 ml Balance -450 ml 554 ml -400 ml Intake Oral 0 ml 0 ml Tube Feeding 843 ml Tube Irrigant 461 ml Output Urine Total 450 ml 750 ml 400 ml # Bowel Movements 2 2 2 Vital Signs Date Time Temp Pulse Resp B/P Pulse Ox O2 Delivery O2 Flow Rate FiO2 02/17/17 16:00 95.6 91 22 104/69 100 02/17/17 12:00 96.7 86 22 117/60 98 02/17/17 10:00 98 T-Piece 6.00 02/17/17 09:37 100 T-piece 5.00 28 02/17/17 08:00 95.9 87 22 122/78 99 02/17/17 00:00 96.0 81 20 107/76 99 02/16/17 21:00 98 Trach Collar 6.00 T-Piece General: No acute distress, Other (T-piece) Musculoskeletal: ROM (Tone is slightly increased in upper and lower extremity flexors but range of motion is within functional limits), Other (SCDs in place) Psychiatric: Cooperative Orientation: oriented to Self, oriented to Situation Neurologic: Pupils (PERRLA), EOM (Tracks to voice bilaterally; closes eyes to command) Assessment and Plan Diagnosis: (1) CVA (cerebral vascular accident) Laterality of affected vessel: bilateral Assessment 1. 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 Sacral wound 3. Atrial fibrillation 4. HTN 5. Non-Hodgkin lymphoma stage 3 S/P chemotherapy 6. DM Plan 1. Nursing and family providing range of motion which appears to be within functional limits. 2. Case management continues to pursue long-term placement 3. Continue to turn and reposition q 2 hours. Specialty bed is in place and wound care is following 4. No additional rehabilitation recommendations at this time. Continue to encourage communication using eyeblink/gaze per speech therapy recommendations. . Marla Pickens MD Feb 17, 2017 20:58
[2017-02-18] VITALS (8 sets, daily range): BP systolic 96–125; BP diastolic 62–72; PULSE 84–93; RESP 18–22; TEMP 96.1–99.5; O2SAT 94–100
[2017-02-18] MEDS: ACETIC ACID 0.25% SOLN 1000 ML IRR BTL IRRIGATION SCH ×3 (06:41→20:50)
[2017-02-18] MEDS: HEPARIN SODIUM - SQ 10,000 UNITS/ML VIAL SQ SCH ×3 (06:41→20:48)
[2017-02-18] MEDS: LANSOPRAZOLE SOLUTAB 30 MG TAB NG SCH ×2 (08:10→20:49)
[2017-02-18] MEDS: ASCORBIC ACID 500 MG TAB PO SCH (08:10)
[2017-02-18] MEDS: NYSTATIN 100,000 U/GM PWD 15 GM BTL TOPICAL SCH ×2 (08:11→20:49)
[2017-02-18] MEDS: levETIRAcetam 500 MG/5 ML UDC TUBE SCH ×2 (08:11→20:48)
[2017-02-18] MEDS: FERROUS SULFATE 300 MG /5ML UDC PO SCH (08:11)
[2017-02-18] MEDS: ASPIRIN 325 MG TAB TUBE SCH (08:11)
[2017-02-18] MEDS: BACITRACIN TOP OINT 15 GM TUBE TOP SCH ×2 (08:11→20:49)
[2017-02-18] MEDS: DILTIAZEM HCL 30 MG TAB PEG SCH ×4 (08:11→20:49)
[2017-02-18] MEDS: ARTIFICIAL TEARS OPTH SOLN 15 ML BTL EACH EYE SCH ×2 (08:12→20:49)
[2017-02-18] MEDS: SODIUM CHLORIDE 0.65% NASAL SPRAY 45 ML BTL NASAL SCH ×2 (08:12→20:49)
[2017-02-18] MEDS: JUVEN POWDER 1 PACK G-TUBE SCH ×2 (08:12→20:50)
--- NOTE | 2017-02-18 12:09 | HHI.PR ---
Subjective Remarks BP low today no reports of fevers or chills patient tolerating tube feeds no reports of diarrhea Objective Vitals Vital Signs Date Time Temp Pulse Resp B/P Pulse Ox O2 Delivery O2 Flow Rate FiO2 02/18/17 10:57 100 T-piece 6.00 28 02/18/17 08:32 T-Piece 6.00 Humidified 02/18/17 08:00 98.6 89 21 96/62 94 02/18/17 00:00 97.0 84 18 114/71 100 02/17/17 21:14 100 T-piece 28 02/17/17 21:03 96.7 87 16 121/77 99 02/17/17 21:00 99 Trach Collar 6.00 T-Piece 02/17/17 16:00 95.6 91 22 104/69 100 I/O 02/17/17 02/17/17 02/17/17 02/18/17 02/18/17 02/18/17 06:59 14:59 22:59 06:59 14:59 22:59 Intake Total 0 ml 796 ml 651 ml 554 ml 180 ml Output Total 400 ml 800 ml 300 ml Balance -400 ml 796 ml -149 ml 254 ml 180 ml Intake Oral 0 ml 0 ml 0 ml Tube Feeding 486 ml 440 ml 404 ml Tube Irrigant 180 ml 211 ml 150 ml 180 ml Other 130 ml Output Urine Total 400 ml 800 ml 300 ml # Bowel Movements 2 2 2 Objective Remarks GENERAL: Non-verbal, lethargic, opens eyes to voice and command, tracking people in room. Not in acute distress. SKIN: Warm and dry. HEENT: Normocephalic. Pupils nonicteric. Nose without bleeding. Airway patent. NECK: Supple, trachea midline. T-tube in place, site clean, dry, intact. No JVD. CARDIOVASCULAR: Regular rate and rhythm. No murmur appreciated. RESPIRATORY: Breath sounds equal bilaterally. No accessory muscle use. Trach tube in place. Bedside monitor indicated oxygen saturation was 99%. GASTROINTESTINAL: Abdomen soft, non-tender, nondistended. GJ tube noted, area around insertion was clean, dry, dressing intact. J tube clogged. MUSCULOSKELETAL: No cyanosis, or edema. PSYCHIATRIC: Pt non-verbal. Procedures 07/22/2016 Wide excision of sacral skin wound, biopsy of the cavity lining and debridement. PEG removal and Gj tube placement 07/29/16 VAC changes- M-W-F 10/23/16, 11/18, 12/31- GJ tube replacement 01/02/16 PEG placement 01/02/16 tracheostomy Medications and IVs Current Medications Medications (Trade) Dose Ordered Sig/Junior Route Start Time Stop Time Status Last Admin (NS Flush) 2 ml UNSCH PRN IVF 12/21/15 06:00 09/28/16 21:18 (Keppra Liq) 500 mg Q12HR TUBE 12/27/15 21:00 02/18/17 08:11 (Tylenol 650 Mg/ 20 ml Liq) 650 mg Q6H PRN TUBE 12/30/15 15:15 01/18/17 21:34 (Mycostatin Powder) 1 applic Q12HR TOPICAL 01/08/16 21:00 02/18/17 08:11 (Pill Splitter) 1 ea UNSCH PRN OTHER 01/14/16 08:30 (Acetic Acid 0.25% Irr Btl) 10 ml Q8HR IRRIGATION 02/05/16 16:00 02/18/17 06:41 (Paxil Liq) 20 mg DAILY@1900 PEG 03/12/16 19:00 02/17/17 18:11 (Levsin) 0.25 mg Q4H PRN G-TUBE 04/11/16 10:30 02/11/17 08:47 (Zofran Inj) 4 mg Q6HR PRN IV PUSH 04/14/16 19:45 08/10/16 10:16 (Aspirin) 325 mg DAILY TUBE 05/27/16 11:40 02/18/17 08:11 (Heparin Inj) 5,000 units Q8HR SQ 06/11/16 14:00 02/18/17 06:41 (Baciguent Oint) 1 applic BID TOP 07/20/16 10:00 02/18/17 08:11 ([place]) 1 spray BID NASAL 08/01/16 21:00 02/18/17 08:12 (Tears Naturale Opth Soln) 1 drop BID EACH EYE 09/05/16 21:00 02/18/17 08:12 (Morphine Inj) 1 mg Q24H PRN IV PUSH 09/17/16 14:30 10/22/16 02:00 (Dulcolax Supp) 10 mg DAILY PRN RECTAL 09/26/16 15:30 12/08/16 09:17 (Tylenol - Codeine 120-12 Liq) 5 ml Q4H PRN G-TUBE 12/27/16 15:30 02/06/17 17:05 (Imodium Liq) 2 mg Q6H PRN PEG 12/27/16 15:30 01/24/17 20:05 (Milk Of Magnesia Liq) 30 ml DAILY PRN PEG 12/27/16 15:30 02/11/17 08:46 (Milk Of Magnesia Liq) 30 ml DAILY PEG 12/28/16 09:00 Hold 01/19/17 08:44 (Senna Liq) 8.8 mg DAILY@1600 PEG 12/27/16 16:00 02/07/17 17:13 (Lactulose Liq) 30 ml DAILY PRN PEG 12/27/16 15:30 (Cardizem) 30 mg QID PEG 01/09/17 18:00 02/17/17 21:02 (D50w (Vial) Inj) 50 ml UNSCH PRN IV 01/09/17 16:00 (Glucagon Inj) 1 mg UNSCH PRN OTHER 01/09/17 16:00 (Prevacid Odt) 30 mg BID NG 01/26/17 21:00 02/18/17 08:10 (Ashish Powder) 1 pack BID G-TUBE 02/10/17 21:00 02/18/17 08:12 (Ferrous Sulfate Liq) 300 mg DAILY PO 02/14/17 09:00 02/18/17 08:11 (Vitamin C) 1,000 mg DAILY PO 02/14/17 09:00 02/18/17 08:10 Urinary Catheter: Yes Assessment to: Continue Arevalo insert reason: Prolonged Immobilization A/P Problem List: (1) CVA (cerebral vascular accident) ICD Code: I63.9 Status: Acute (2) A-fib ICD Code: I48.91 Status: Chronic (3) DM (diabetes mellitus) ICD Code: E11.9 Status: Chronic Assessment and Plan Mr. Flores is a 60 year-old male with past medical history of paroxysmal A. fib , hypertension, stage III non-Hodgkin's lymphoma status post chemotherapy who came into the hospital with altered mental status. 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 On Keppra 500mg BID On Paxil 20 by mouth daily for depression. On Ativan 0.5 mg every 4 hours when necessary anxiety. On acetaminophen with codeine for pain scale of 2-10. NO evidence of seizure activity Vent dependent respiratory failure, currently trached and on t-piece Right upper lobe/right middle lobe pulmonary nodules - outpatient CT scan without contrast in 6 months to follow-up Continue with oxygen keep sat >92%. Trach changed to size #6 XLT on 01/09 Duo nebs every 6 hours Leave on TP 10/02 as tolerated Pulm toilet, trach care 01/09 CTA chest: No PE, bilateral lower lobe infiltrates. 4 mm right upper lobe/5 mm right middle lobe nodule. Pulm is following - Dr. Taylor Right hallux ingrown toenail, paronychia - Manufacturing Supervisor has seen patient. I & D with partial nail avulsion performed at bedside 02/06/17. Toe now MARINO. No drainage noted. History of paroxysmal atrial fibrillation currently in sinus tachycardia Hypertension Dyslipidemia Monitor HR and BP keep MAP>65mmHg. O Continue ASA 325mg daily Cardizem 30mg QID 02/18 Patient hypotensive today - Likely due to dehydration with reports of previous diarrhea - will Rx Normal saline 500 ml IV Bolus x1 and continue to monitor BP. No other signs of infection. Mild protein calorie malnutrition Gastroesophageal reflux disease Diarrhea, negative for C. difficile. Improved On Prevacid 30 mg Q12, on tube feeds(Jevity 1.5 at 55 ml/hr) Continue bowel regimen with hold parameters, Lactinex and Imodium. Replaced 02/14/17 Klebsiella/Pseudomonas/staph aureus HCAP PSAE UTI S/p Cefepime. Monitor for signs of infections. strep pneumonia and Legionella urinary Ag is negative C-diff PCR negative on 01/13 01/09 BC : Staph Epi, Urine cx: Pseudomonas, Sputum cx: Pseudomonas, kleb, Staph. Patient was pancultured on 01/19 (Blood, sputum, urine) NGTD in urine and blood. Sputum + for pseudomonas. Microcytic anemia Stage III a non-Hodgkin's lymphoma - s/p chemotherapy 2014 Monitor CBC No further treatment recommended per heme oncology at this time. Stage IV decubitus ulcers -Dressing changes daily. Wound care last saw patient on 01/17/17, no new recommendations continue packing with Betadine moistened rolled Janis and covered with ABD pad and paper tape to secure. GI prophylaxis with Prevacid 30 mg Q12 DVT prophylaxis: SCD and Heparin SQ Discharge Planning DC pending placement. Problem Qualifiers (1) CVA (cerebral vascular accident): (2) DM (diabetes mellitus): Qualified Code: E11.9 - Type 2 diabetes mellitus without complications Renny Kamara MD Feb 18, 2017 12:09
[2017-02-18 13:11] LABS: HEMATOCRIT 29.3 % (39.0-51.0); MEAN CELL VOLUME 73.4 FL (80.0-100.0); MEAN CORPUSCULAR HEMOGLOBIN 22.4 PG (27.0-34.0); MEAN CORPUSCULAR HGB CONC 30.5 % (32.0-36.0); PLATELET COUNT 227 TH/MM3 (150-450); RED BLOOD COUNT 3.99 MIL/MM3 (4.50-5.90); RED CELL DISTRIBUTION WIDTH 19.9 % (11.6-17.2); REVIEW FLAG FINAL; WHITE BLOOD COUNT 4.5 TH/MM3 (4.0-11.0)
[2017-02-18 13:28] LABS: POTASSIUM 3.9 MEQ/L (3.5-5.1)
[2017-02-18] MEDS: SENNOSIDES SYRUP 8.8 MG/5 ML CUP PEG SCH (15:00)
--- NOTE | 2017-02-18 16:23 | HHI.PR ---
Subjective Remarks ass OPENS EYES NO DISTRESS Objective Vital Signs Date Time Temp Pulse Resp B/P Pulse Ox O2 Delivery O2 Flow Rate FiO2 02/18/17 12:00 98.5 91 20 116/72 100 02/18/17 10:57 100 T-piece 6.00 28 02/18/17 08:32 T-Piece 6.00 Humidified 02/18/17 08:00 98.6 89 21 96/62 94 02/18/17 00:00 97.0 84 18 114/71 100 02/17/17 21:14 100 T-piece 28 02/17/17 21:03 96.7 87 16 121/77 99 02/17/17 21:00 99 Trach Collar 6.00 T-Piece I/O 02/17/17 02/17/17 02/17/17 02/18/17 02/18/17 02/18/17 07:00 15:00 23:00 07:00 15:00 23:00 Intake Total 0 ml 796 ml 651 ml 554 ml 1186 ml Output Total 400 ml 800 ml 300 ml 1450 ml Balance -400 ml 796 ml -149 ml 254 ml -264 ml Intake Oral 0 ml 0 ml 0 ml IV Total 500 ml Tube Feeding 486 ml 440 ml 404 ml 326 ml Tube Irrigant 180 ml 211 ml 150 ml 180 ml Other 130 ml 180 ml Output Urine Total 400 ml 800 ml 300 ml 1450 ml # Bowel Movements 2 2 2 Result Diagram: 02/18/17 1240 02/18/17 1240 Procedures 01/02/16 PEG placement 01/02/16 tracheostomy 07/22/2016 Wide excision of sacral skin wound, biopsy of the cavity lining and debridement. PEG tube replacement 07/29/16 Objective Remarks GENERAL: SKIN: Warm and dry. HEAD: Atraumatic. Normocephalic. EYES: Pupils equal and round. No scleral icterus. No injection or drainage. ENT: No nasal bleeding or discharge. Mucous membranes pink and moist. NECK: Trachea midline. No JVD. CARDIOVASCULAR: Regular rate and rhythm. RESPIRATORY: No accessory muscle use. Clear to auscultation. Breath sounds equal bilaterally. GASTROINTESTINAL: Abdomen soft, non-tender, nondistended. Hepatic and splenic margins not palpable. MUSCULOSKELETAL: Extremities without clubbing, cyanosis, or edema. No obvious deformities. NEUROLOGICAL: Awake and alert. No obvious cranial nerve deficits. Motor grossly within normal limits. Five out of 5 muscle strength in the arms and legs. Normal speech. PSYCHIATRIC: Appropriate mood and affect; insight and judgment normal. Laboratory Tests Test 01/05/17 01/06/17 08:35 08:41 Red Blood Count 4.43 MIL/MM3 (4.50-5.90) Hemoglobin 9.9 GM/DL (13.0-17.0) Hematocrit 32.0 % (39.0-51.0) Mean Corpuscular Volume 72.1 FL (80.0-100.0) Mean Corpuscular Hemoglobin 22.3 PG (27.0-34.0) Mean Corpuscular Hemoglobin 30.9 % Concent (32.0-36.0) Red Cell Distribution Width 19.9 % (11.6-17.2) Sodium Level 134 MEQ/L 133 MEQ/L (136-145) (136-145) Random Glucose 136 MG/DL 132 MG/DL (74-106) (74-106) Creatinine 0.59 MG/DL (0.60-1.30) GENERAL: SKIN: Warm and dry. HEAD: Atraumatic. Normocephalic. EYES: Pupils equal and round. No scleral icterus. No injection or drainage. ENT: No nasal bleeding or discharge. Mucous membranes pink and moist. NECK: Trachea midline. No JVD. TRACH. [place] CARDIOVASCULAR: Regular rate and rhythm. RESPIRATORY: No accessory muscle use. Clear to auscultation. Breath sounds equal bilaterally. GASTROINTESTINAL: Abdomen soft, non-tender, nondistended. Hepatic and splenic margins not palpable. MUSCULOSKELETAL: Extremities without clubbing, cyanosis, or edema. No obvious deformities. NEUROLOGICAL: Awake and alert. No obvious cranial nerve deficits. Motor grossly within normal limits. Five out of 5 muscle strength in the arms and legs. Normal speech. PSYCHIATRIC: Appropriate mood and affect; insight and judgment normal. Assessment and Plan Assessment and Plan impression respiratory failure CVA S/P TRACHEOSTOMY PLAN O2 NEEDED PULM. TOILET [place] poor Brandon Taylor MD Feb 18, 2017 16:23
[2017-02-18] MEDS: PARoxetine HCL SUSP 20 MG/10 ML UDC PEG SCH (18:29)
[2017-02-19] VITALS (8 sets, daily range): BP systolic 107–135; BP diastolic 71–88; PULSE 86–99; RESP 17–24; TEMP 96.3–97.8; O2SAT 99–100
[2017-02-19] MEDS: HEPARIN SODIUM - SQ 10,000 UNITS/ML VIAL SQ SCH ×3 (05:11→20:27)
[2017-02-19] MEDS: ACETIC ACID 0.25% SOLN 1000 ML IRR BTL IRRIGATION SCH ×3 (05:12→20:28)
[2017-02-19] MEDS: ASPIRIN 325 MG TAB TUBE SCH (08:40)
[2017-02-19] MEDS: ASCORBIC ACID 500 MG TAB PO SCH (08:40)
[2017-02-19] MEDS: FERROUS SULFATE 300 MG /5ML UDC PO SCH (08:40)
[2017-02-19] MEDS: DILTIAZEM HCL 30 MG TAB PEG SCH ×5 (08:40→20:26)
[2017-02-19] MEDS: levETIRAcetam 500 MG/5 ML UDC TUBE SCH ×2 (08:40→20:27)
[2017-02-19] MEDS: LANSOPRAZOLE SOLUTAB 30 MG TAB NG SCH ×2 (08:40→20:26)
[2017-02-19] MEDS: ARTIFICIAL TEARS OPTH SOLN 15 ML BTL EACH EYE SCH ×2 (08:41→20:28)
[2017-02-19] MEDS: SODIUM CHLORIDE 0.65% NASAL SPRAY 45 ML BTL NASAL SCH ×2 (08:41→20:28)
[2017-02-19] MEDS: NYSTATIN 100,000 U/GM PWD 15 GM BTL TOPICAL SCH ×2 (08:41→20:28)
[2017-02-19] MEDS: JUVEN POWDER 1 PACK G-TUBE SCH ×2 (08:41→20:28)
[2017-02-19] MEDS: BACITRACIN TOP OINT 15 GM TUBE TOP SCH ×2 (08:45→20:28)
[2017-02-19] MEDS: SENNOSIDES SYRUP 8.8 MG/5 ML CUP PEG SCH (12:52)
--- NOTE | 2017-02-19 14:09 | HHI.PR ---
Subjective Remarks Follow up respiratory failure and diarrhea. Patient seen and examined. Spoke to bedside RN, no acute changes overnight. Updated mother regarding patient status. Tolerating TF. Continued sacrum wound changes. Afebrile. BP stable today. Objective Vitals Vital Signs Date Time Temp Pulse Resp B/P Pulse Ox O2 Delivery O2 Flow Rate FiO2 02/19/17 12:00 97.7 86 24 107/76 100 02/19/17 08:00 97.4 89 18 127/75 100 02/19/17 04:45 97.6 99 20 133/88 100 02/18/17 23:52 96.4 91 21 125/72 98 02/18/17 21:45 95 T-piece 6.00 28 02/18/17 20:50 T-Piece 6.00 Humidified 02/18/17 20:29 96.1 88 21 110/70 96 02/18/17 16:00 99.5 93 22 113/69 99 I/O 02/18/17 02/18/17 02/18/17 02/19/17 02/19/17 02/19/17 06:59 14:59 22:59 06:59 14:59 22:59 Intake Total 554 ml 1186 ml 680 ml 735 ml Output Total 300 ml 1450 ml 600 ml 500 ml Balance 254 ml -264 ml 80 ml 235 ml Intake Oral 0 ml IV Total 500 ml 0 ml Tube Feeding 404 ml 326 ml 440 ml 495 ml Tube Irrigant 150 ml 180 ml 240 ml 240 ml Other 180 ml Output Urine Total 300 ml 1450 ml 600 ml 500 ml # Bowel Movements 2 2 3 Result Diagram: 02/18/17 1240 02/18/17 1240 Imaging Last Impressions Tube Change 02/14/17 0000 Signed Impressions: Service Date/Time: Tuesday, February 14, 2017 00:00 - CONCLUSION: Uncomplicated gastrojejunostomy tube exchange as above. Scott Griffin MD Chest X-Ray 01/20/17 0600 Signed Impressions: Service Date/Time: Friday, January 20, 2017 04:22 - CONCLUSION: 1. Bibasilar patchy densities, unchanged. 2. Tracheostomy tube unchanged. Mikie Vargas MD Head CT 01/09/17 0000 Signed Impressions: Service Date/Time: December 17:43 - CONCLUSION: 1. No acute hemorrhage or mass effect. 2. 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 3. Atrophy. Gerald Mukherjee MD CT Angiography 01/09/17 0000 Signed Impressions: Service Date/Time: December 17:49 - CONCLUSION: 1. No evidence of pulmonary emboli. 2. Patchy consolidation in both posterior lower lobes right greater than left. This could represent pneumonia. 3. 2 small noncalcified pulmonary nodules which are nonspecific finding. Short-term CT followup is recommended beginning in 6 months with a noncontrast outpatient CT. Gerald Mukherjee MD Tube Check 12/04/16 0000 Signed Impressions: Service Date/Time: Sunday, December 04, 2016 17:58 - CONCLUSION: Uncomplicated tube injection as above. the tube is in good position and functions normally. Moises Ramírez MD Abdomen X-Ray 08/31/16 0000 Signed Impressions: Service Date/Time: Wednesday, August 31, 2016 16:36 - CONCLUSION: 1. No acute findings. Mild constipation. Durga Dotson MD Abdomen/Pelvis CT 04/12/16 0000 Signed Impressions: Service Date/Time: Tuesday, April 12, 2016 20:52 - CONCLUSION: 1. 6.4 cm necrotic mass or abscess in the soft tissues posteriorly just below the sacrum associated with some bony destructive change of the lower most sacrum and coccyx with inflammatory changes extending into the ischiorectal fossa and into the presacral retroperitoneum predominantly on the left side. There is associated fairly marked mural thickening of the anal verge and rectum. 2. There is gastrostomy and Arevalo catheter present. Stable abdominal aortic aneurysm. Durga Dotson MD Head Magnetic Resonance Angiography 03/05/16 0000 Signed Impressions: Service Date/Time: Saturday, March 05, 2016 09:26 - CONCLUSION: Persistent high-grade subtotal occlusive stenotic lesions in the distal right vertebral artery and proximal basilar artery with significant improvement in flow and recanalization following initial presentation of thrombosis. Stable interstitial circulation without significant stenosis. Ernesto Kulkarni MD Brain MRI 03/05/16 0000 Signed Impressions: Service Date/Time: Saturday, March 05, 2016 09:26 - CONCLUSION: Evolving brainstem and bilateral occipital lobe infarcts with evidence of subacute hemorrhagic products. There is decreasing restricted diffusion and increasing loss of volume characteristic of a subacute to chronic infarct. No evidence of acute infarct, acute hemorrhage mass or edema. Ernesto Kulkarni MD Neck Magnetic Resonance Angiography 12/22/15 1445 Signed Impressions: Service Date/Time: Tuesday, December 22, 2015 09:22 - CONCLUSION: Variant origin of the left vertebral artery from the aortic arch. No evidence of carotid stenosis. Glen Zamora MD Head/Brain Mag Res Venography 12/22/15 0000 Signed Impressions: Service Date/Time: Tuesday, December 22, 2015 09:22 - CONCLUSION: Normal MRV. Jonel Jones Jr., MD Objective Remarks GENERAL: Non-verbal, lethargic, opens eyes to voice and command, tracking people in room. No acute distress. SKIN: Warm and dry. HEENT: Normocephalic. Pupils nonicteric. Nose without bleeding. Airway patent. NECK: Supple, trachea midline. T-tube in place, site clean, dry, intact. No JVD. CARDIOVASCULAR: Regular rate and rhythm. No murmur appreciated. RESPIRATORY: Breath sounds equal bilaterally. No accessory muscle use. Trach tube in place. Bedside monitor indicated oxygen saturation was 99%. GASTROINTESTINAL: Abdomen soft, non-tender, nondistended. GJ tube noted, area around insertion was clean, dry, dressing intact. J tube clogged. MUSCULOSKELETAL: No cyanosis, or edema. PSYCHIATRIC: Pt non-verbal. Procedures 07/22/2016 Wide excision of sacral skin wound, biopsy of the cavity lining and debridement. PEG removal and Gj tube placement 07/29/16 VAC changes- M-W-F 10/23/16, 11/18, 12/31- GJ tube replacement 01/02/16 PEG placement 01/02/16 tracheostomy Urinary Catheter: Yes Assessment to: Continue Arevalo insert reason: Obstruction/Retention Date of Insertion: Feb 10, 2017 A/P Problem List: (1) CVA (cerebral vascular accident) ICD Code: I63.9 Status: Acute (2) A-fib ICD Code: I48.91 Status: Chronic (3) DM (diabetes mellitus) ICD Code: E11.9 Status: Chronic Assessment and Plan Mr. Flores is a 60 year-old male with past medical history of paroxysmal A. fib , hypertension, stage III non-Hodgkin's lymphoma status post chemotherapy who came into the hospital with altered mental status. 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 On Keppra 500mg BID On Paxil 20 by mouth daily for depression. On Ativan 0.5 mg every 4 hours when necessary anxiety. On acetaminophen with codeine for pain scale of 2-10. NO evidence of seizure activity Vent dependent respiratory failure, currently trached and on t-piece Right upper lobe/right middle lobe pulmonary nodules - outpatient CT scan without contrast in 6 months to follow-up Continue with oxygen keep sat >92%. Trach changed to size #6 XLT on 01/09 Duo nebs every 6 hours Leave on TP 10/02 as tolerated Pulm toilet, trach care 01/09 CTA chest: No PE, bilateral lower lobe infiltrates. 4 mm right upper lobe/5 mm right middle lobe nodule. Pulm is following - Dr. Taylor Right hallux ingrown toenail, paronychia - Resolved - Civil Engineer Helper has seen patient. I & D with partial nail avulsion performed at bedside 02/06/17. Toe now SUPPORT ANALYST. No drainage noted. History of paroxysmal atrial fibrillation currently in sinus tachycardia Hypertension Dyslipidemia Monitor HR and BP keep MAP>65mmHg. O Continue ASA 325mg daily Cardizem 30mg QID BP stable today. Status post NS 500 ml bolus x 1 yesterday. Will continue to monitor. Mild protein calorie malnutrition Gastroesophageal reflux disease Diarrhea, negative for C. difficile. Improved On Prevacid 30 mg Q12, on tube feeds(Jevity 1.5 at 55 ml/hr) Continue bowel regimen with hold parameters, Lactinex and Imodium. Klebsiella/Pseudomonas/staph aureus HCAP PSAE UTI S/p Cefepime. Monitor for signs of infections. strep pneumonia and Legionella urinary Ag is negative C-diff PCR negative on 01/13 01/09 BC : Staph Epi, Urine cx: Pseudomonas, Sputum cx: Pseudomonas, kleb, Staph. Patient was pancultured on 01/19 (Blood, sputum, urine) NGTD in urine and blood. Sputum + for pseudomonas. Microcytic anemia Stage III a non-Hodgkin's lymphoma - s/p chemotherapy 2014 Monitor CBC No further treatment recommended per heme oncology at this time. Stage IV decubitus ulcers -Dressing changes daily. Wound care last saw patient on 01/17/17, no new recommendations continue packing with Betadine moistened rolled Janis and covered with ABD pad and paper tape to secure. GI prophylaxis with Prevacid 30 mg Q12 DVT prophylaxis: SCD and Heparin SQ Discharge Planning CM stated discussions ongoing between [facility] and [facility] for possible transfer. Problem Qualifiers (1) CVA (cerebral vascular accident): (2) DM (diabetes mellitus): Qualified Code: E11.9 - Type 2 diabetes mellitus without complications Haley Seymour Feb 19, 2017 14:09
--- NOTE | 2017-02-19 16:05 | HHI.PR ---
Subjective Remarks ass OPENS EYES NO DISTRESS Objective Vital Signs Date Time Temp Pulse Resp B/P Pulse Ox O2 Delivery O2 Flow Rate FiO2 02/19/17 12:00 97.7 86 24 107/76 100 02/19/17 09:30 100 T-piece 28 02/19/17 08:00 97.4 89 18 127/75 100 02/19/17 04:45 97.6 99 20 133/88 100 02/18/17 23:52 96.4 91 21 125/72 98 02/18/17 21:45 95 T-piece 6.00 28 02/18/17 20:50 T-Piece 6.00 Humidified 02/18/17 20:29 96.1 88 21 110/70 96 I/O 02/18/17 02/18/17 02/18/17 02/19/17 02/19/17 02/19/17 06:59 14:59 22:59 06:59 14:59 22:59 Intake Total 554 ml 1186 ml 680 ml 735 ml 620 ml Output Total 300 ml 1450 ml 600 ml 500 ml Balance 254 ml -264 ml 80 ml 235 ml 620 ml Intake Oral 0 ml IV Total 500 ml 0 ml Tube Feeding 404 ml 326 ml 440 ml 495 ml 620 ml Tube Irrigant 150 ml 180 ml 240 ml 240 ml Other 180 ml Output Urine Total 300 ml 1450 ml 600 ml 500 ml # Bowel Movements 2 2 3 Result Diagram: 02/18/17 1240 02/18/17 1240 Procedures 01/02/16 PEG placement 01/02/16 tracheostomy 07/22/2016 Wide excision of sacral skin wound, biopsy of the cavity lining and debridement. PEG tube replacement 07/29/16 Objective Remarks GENERAL: SKIN: Warm and dry. HEAD: Atraumatic. Normocephalic. EYES: Pupils equal and round. No scleral icterus. No injection or drainage. ENT: No nasal bleeding or discharge. Mucous membranes pink and moist. NECK: Trachea midline. No JVD. CARDIOVASCULAR: Regular rate and rhythm. RESPIRATORY: No accessory muscle use. Clear to auscultation. Breath sounds equal bilaterally. GASTROINTESTINAL: Abdomen soft, non-tender, nondistended. Hepatic and splenic margins not palpable. MUSCULOSKELETAL: Extremities without clubbing, cyanosis, or edema. No obvious deformities. NEUROLOGICAL: Awake and alert. No obvious cranial nerve deficits. Motor grossly within normal limits. Five out of 5 muscle strength in the arms and legs. Normal speech. PSYCHIATRIC: Appropriate mood and affect; insight and judgment normal. Laboratory Tests Test 01/05/17 01/06/17 08:35 08:41 Red Blood Count 4.43 MIL/MM3 (4.50-5.90) Hemoglobin 9.9 GM/DL (13.0-17.0) Hematocrit 32.0 % (39.0-51.0) Mean Corpuscular Volume 72.1 FL (80.0-100.0) Mean Corpuscular Hemoglobin 22.3 PG (27.0-34.0) Mean Corpuscular Hemoglobin 30.9 % Concent (32.0-36.0) Red Cell Distribution Width 19.9 % (11.6-17.2) Sodium Level 134 MEQ/L 133 MEQ/L (136-145) (136-145) Random Glucose 136 MG/DL 132 MG/DL (74-106) (74-106) Creatinine 0.59 MG/DL (0.60-1.30) GENERAL: SKIN: Warm and dry. HEAD: Atraumatic. Normocephalic. EYES: Pupils equal and round. No scleral icterus. No injection or drainage. ENT: No nasal bleeding or discharge. Mucous membranes pink and moist. NECK: Trachea midline. No JVD. TRACH. [place] CARDIOVASCULAR: Regular rate and rhythm. RESPIRATORY: No accessory muscle use. Clear to auscultation. Breath sounds equal bilaterally. GASTROINTESTINAL: Abdomen soft, non-tender, nondistended. Hepatic and splenic margins not palpable. MUSCULOSKELETAL: Extremities without clubbing, cyanosis, or edema. No obvious deformities. NEUROLOGICAL: Awake and alert. No obvious cranial nerve deficits. Motor grossly within normal limits. Five out of 5 muscle strength in the arms and legs. Normal speech. PSYCHIATRIC: Appropriate mood and affect; insight and judgment normal. Assessment and Plan Assessment and Plan impression respiratory failure CVA S/P TRACHEOSTOMY PLAN O2 NEEDED PULM. TOILET [place] poor Brandon Taylor MD Feb 19, 2017 16:05
[2017-02-19] MEDS: PARoxetine HCL SUSP 20 MG/10 ML UDC PEG SCH (18:15)
[2017-02-20] VITALS (8 sets, daily range): BP systolic 101–125; BP diastolic 65–75; PULSE 80–95; RESP 17–21; TEMP 97.2–98.6; O2SAT 96–100
[2017-02-20] MEDS: HEPARIN SODIUM - SQ 10,000 UNITS/ML VIAL SQ SCH ×3 (05:28→21:04)
[2017-02-20] MEDS: ACETIC ACID 0.25% SOLN 1000 ML IRR BTL IRRIGATION SCH ×3 (05:29→21:06)
[2017-02-20] MEDS: LANSOPRAZOLE SOLUTAB 30 MG TAB NG SCH ×2 (08:31→21:04)
[2017-02-20] MEDS: DILTIAZEM HCL 30 MG TAB PEG SCH ×4 (08:31→21:04)
[2017-02-20] MEDS: FERROUS SULFATE 300 MG /5ML UDC PO SCH (08:31)
[2017-02-20] MEDS: ASCORBIC ACID 500 MG TAB PO SCH (08:31)
[2017-02-20] MEDS: SODIUM CHLORIDE 0.65% NASAL SPRAY 45 ML BTL NASAL SCH ×2 (08:31→21:05)
[2017-02-20] MEDS: ASPIRIN 325 MG TAB TUBE SCH (08:31)
[2017-02-20] MEDS: levETIRAcetam 500 MG/5 ML UDC TUBE SCH ×2 (08:31→21:05)
[2017-02-20] MEDS: ARTIFICIAL TEARS OPTH SOLN 15 ML BTL EACH EYE SCH ×2 (08:32→21:05)
[2017-02-20] MEDS: JUVEN POWDER 1 PACK G-TUBE SCH ×2 (08:32→21:05)
[2017-02-20] MEDS: NYSTATIN 100,000 U/GM PWD 15 GM BTL TOPICAL SCH ×2 (08:32→21:06)
[2017-02-20] MEDS: BACITRACIN TOP OINT 15 GM TUBE TOP SCH ×2 (08:34→21:06)
--- NOTE | 2017-02-20 13:21 | HHI.PR ---
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 Patient seen and examined. Spoke to bedside RN , no acute changes overnight. Updated family member at bedside regarding patient status. Tolerating TF. Continued sacrum wound changes. Afebrile. BP stable today. Objective Vitals Vital Signs Date Time Temp Pulse Resp B/P Pulse Ox O2 Delivery O2 Flow Rate FiO2 02/20/17 12:00 98.4 86 17 115/74 100 02/20/17 08:00 97.3 93 17 118/73 100 02/20/17 05:05 98 Blow-by 6.00 28 02/20/17 04:21 97.5 95 21 125/75 96 02/19/17 23:48 96.3 86 18 130/71 100 02/19/17 20:32 97.8 89 20 135/72 99 02/19/17 20:30 T-Piece 6.00 Humidified 02/19/17 17:54 100 T-piece 6.00 28 02/19/17 16:00 97.0 88 17 112/71 99 I/O 02/19/17 02/19/17 02/19/17 02/20/17 02/20/17 02/20/17 07:00 15:00 23:00 07:00 15:00 23:00 Intake Total 735 ml 620 ml 750 ml 784 ml Output Total 500 ml 875 ml 1000 ml 600 ml Balance 235 ml -255 ml -250 ml 184 ml IV Total 0 ml Tube Feeding 495 ml 620 ml 550 ml 527 ml Tube Irrigant 240 ml 200 ml 257 ml Output Urine Total 500 ml 875 ml 1000 ml 600 ml # Bowel Movements 3 2 2 2 Result Diagram: 02/18/17 1240 02/18/17 1240 Imaging Last Impressions Tube Change 02/14/17 0000 Signed Impressions: Service Date/Time: Tuesday, February 14, 2017 00:00 - CONCLUSION: Uncomplicated gastrojejunostomy tube exchange as above. Scott Griffin MD Chest X-Ray 01/20/17 0600 Signed Impressions: Service Date/Time: Friday, January 20, 2017 04:22 - CONCLUSION: 1. Bibasilar patchy densities, unchanged. 2. Tracheostomy tube unchanged. Mikie Vargas MD Head CT 01/09/17 0000 Signed Impressions: Service Date/Time: December 17:43 - CONCLUSION: 1. No acute hemorrhage or mass effect. 2. 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 3. Atrophy. Gerald Mukherjee MD CT Angiography 01/09/17 0000 Signed Impressions: Service Date/Time: December 17:49 - CONCLUSION: 1. No evidence of pulmonary emboli. 2. Patchy consolidation in both posterior lower lobes right greater than left. This could represent pneumonia. 3. 2 small noncalcified pulmonary nodules which are nonspecific finding. Short-term CT followup is recommended beginning in 6 months with a noncontrast outpatient CT. Gerald Mukherjee MD Tube Check 12/04/16 0000 Signed Impressions: Service Date/Time: Sunday, December 04, 2016 17:58 - CONCLUSION: Uncomplicated tube injection as above. the tube is in good position and functions normally. Moises Ramírez MD Abdomen X-Ray 08/31/16 0000 Signed Impressions: Service Date/Time: Wednesday, August 31, 2016 16:36 - CONCLUSION: 1. No acute findings. Mild constipation. Durga Dotson MD Abdomen/Pelvis CT 04/12/16 0000 Signed Impressions: Service Date/Time: Tuesday, April 12, 2016 20:52 - CONCLUSION: 1. 6.4 cm necrotic mass or abscess in the soft tissues posteriorly just below the sacrum associated with some bony destructive change of the lower most sacrum and coccyx with inflammatory changes extending into the ischiorectal fossa and into the presacral retroperitoneum predominantly on the left side. There is associated fairly marked mural thickening of the anal verge and rectum. 2. There is gastrostomy and Arevalo catheter present. Stable abdominal aortic aneurysm. Durga Dotson MD Head Magnetic Resonance Angiography 03/05/16 0000 Signed Impressions: Service Date/Time: Saturday, March 05, 2016 09:26 - CONCLUSION: Persistent high-grade subtotal occlusive stenotic lesions in the distal right vertebral artery and proximal basilar artery with significant improvement in flow and recanalization following initial presentation of thrombosis. Stable interstitial circulation without significant stenosis. Ernesto Kulkarni MD Brain MRI 03/05/16 0000 Signed Impressions: Service Date/Time: Saturday, March 05, 2016 09:26 - CONCLUSION: Evolving brainstem and bilateral occipital lobe infarcts with evidence of subacute hemorrhagic products. There is decreasing restricted diffusion and increasing loss of volume characteristic of a subacute to chronic infarct. No evidence of acute infarct, acute hemorrhage mass or edema. Ernesto Kulkarni MD Neck Magnetic Resonance Angiography 12/22/15 1445 Signed Impressions: Service Date/Time: Tuesday, December 22, 2015 09:22 - CONCLUSION: Variant origin of the left vertebral artery from the aortic arch. No evidence of carotid stenosis. Glen Zamora MD Head/Brain Mag Res Venography 12/22/15 0000 Signed Impressions: Service Date/Time: Tuesday, December 22, 2015 09:22 - CONCLUSION: Normal MRV. Jonel Jones Jr., MD Objective Remarks GENERAL: Non-verbal, lethargic, opens eyes to voice and command, tracking people in room. Not in acute distress. SKIN: Warm and dry. HEENT: Normocephalic. Pupils nonicteric. Nose without bleeding. Airway patent. NECK: Supple, trachea midline. T-tube in place, site clean, dry, intact. No JVD. CARDIOVASCULAR: Regular rate and rhythm. No murmur appreciated. RESPIRATORY: Breath sounds equal bilaterally. No accessory muscle use. Trach tube in place. Bedside monitor indicated oxygen saturation was 99%. GASTROINTESTINAL: Abdomen soft, non-tender, nondistended. GJ tube noted, area around insertion was clean, dry, dressing intact. J tube clogged. MUSCULOSKELETAL: No cyanosis, or edema. PSYCHIATRIC: Pt non-verbal. NEUROLOGICAL: opens eyes able to tracks some. No movement of extremities. Muckle wasting noted Procedures 07/22/2016 Wide excision of sacral skin wound, biopsy of the cavity lining and debridement. PEG removal and Gj tube placement 07/29/16 VAC changes- M-W-F 10/23/16, 11/18, 12/31- GJ tube replacement 01/02/16 PEG placement 01/02/16 tracheostomy Date of Insertion: Feb 10, 2017 A/P Problem List: (1) CVA (cerebral vascular accident) ICD Code: I63.9 Status: Acute (2) A-fib ICD Code: I48.91 Status: Chronic (3) DM (diabetes mellitus) ICD Code: E11.9 Status: Chronic Assessment and Plan Mr. Flores is a 61 year-old male with past medical history of paroxysmal A. fib , hypertension, stage III non-Hodgkin's lymphoma status post chemotherapy who came into the hospital with altered mental status. 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 On acetaminophen with codeine for pain scale of 2-10. Vent dependent respiratory failure, currently trached and on t-piece Right upper lobe/right middle lobe pulmonary nodules - will need outpatient CT scan without contrast in 6 months to follow-up Continue with oxygen keep sat >92%. Trach changed to size #6 XLT on 01/09 Duo nebs every 6 hours Leave on TP 10/02 as tolerated Pulm toilet, trach care 01/09 CTA chest: No PE, bilateral lower lobe infiltrates. 4 mm right upper lobe/5 mm right middle lobe nodule. Pulm is following - Dr. Taylor Right hallux ingrown toenail, paronychia - Performance Management Consultant has seen patient. I & D with partial nail avulsion performed at bedside 02/06/17. Dressing changed, c/d/i. - Continue to monitor. -Bandage removed, toe left open to air to heal. History of paroxysmal atrial fibrillation currently in sinus tachycardia Hypertension Dyslipidemia Monitor HR and BP Continue ASA 325mg daily, Warfarin stopped due to bleeding Cardizem 30mg QID Protein calorie malnutrition Gastroesophageal reflux disease Diarrhea, negative for C. difficile. Improved On Prevacid 30 mg Q12, on tube feeds(Jevity 1.5 at 55 ml/hr) Continue bowel regimen with hold parameters, Lactinex and Imodium. G/J tube clogged, IR consulted to evaluate. Replaced on 02/14/17. Klebsiella/Pseudomonas/staph aureus HCAP PSAE UTI S/p Cefepime. Monitor for signs of infections. strep pneumonia and Legionella urinary Ag is negative C-diff PCR negative on 01/13 01/09 BC : Staph Epi, Urine cx: Pseudomonas, Sputum cx: Pseudomonas, kleb, Staph. Patient was pancultured on 01/19 (Blood, sputum, urine) NGTD in urine and blood. Sputum + for pseudomonas. Microcytic anemia Stage III a non-Hodgkin's lymphoma - s/p chemotherapy 2014 Monitor CBC No further treatment recommended per heme oncology at this time. History of diabetes mellitus. A1c 5.5. Fingersticks have been stable and were DC'd 02/01/17 Stage IV decubitus ulcers -Dressing changes daily. Wound care last saw patient on 01/17/17, no new recommendations continue packing with Betadine moistened rolled Janis and covered with ABD pad and paper tape to secure. GI prophylaxis with Prevacid 30 mg Q12 DVT prophylaxis: SCD and Heparin SQ Case discussed with pt, family memeber at bedside, RN, and Dr. Maya Discharge Planning discussed with CM working on placement possibly [place] as early as this week Problem Qualifiers (1) CVA (cerebral vascular accident): (2) DM (diabetes mellitus): Qualified Code: E11.9 - Type 2 diabetes mellitus without complications Cherri Pineda Feb 20, 2017 13:21
[2017-02-20 13:56] LABS: HEMATOCRIT 29.8 % (39.0-51.0); MEAN CELL VOLUME 73.4 FL (80.0-100.0); MEAN CORPUSCULAR HEMOGLOBIN 22.8 PG (27.0-34.0); MEAN CORPUSCULAR HGB CONC 31.1 % (32.0-36.0); PLATELET COUNT 222 TH/MM3 (150-450); RED BLOOD COUNT 4.06 MIL/MM3 (4.50-5.90); RED CELL DISTRIBUTION WIDTH 20.5 % (11.6-17.2); REVIEW FLAG FINAL; WHITE BLOOD COUNT 5.4 TH/MM3 (4.0-11.0)
[2017-02-20] MEDS: SENNOSIDES SYRUP 8.8 MG/5 ML CUP PEG SCH (14:11)
--- NOTE | 2017-02-20 16:59 | HHI.PR ---
Subjective Remarks ass OPENS EYES NO DISTRESS Objective Vital Signs Date Time Temp Pulse Resp B/P Pulse Ox O2 Delivery O2 Flow Rate FiO2 02/20/17 16:00 98.6 80 17 101/65 100 02/20/17 13:41 98 T-piece 4.00 28 02/20/17 12:00 98.4 86 17 115/74 100 02/20/17 08:00 97.3 93 17 118/73 100 02/20/17 05:05 98 Blow-by 6.00 28 02/20/17 04:21 97.5 95 21 125/75 96 02/19/17 23:48 96.3 86 18 130/71 100 02/19/17 20:32 97.8 89 20 135/72 99 02/19/17 20:30 T-Piece 6.00 Humidified 02/19/17 17:54 100 T-piece 6.00 28 I/O 02/19/17 02/19/17 02/19/17 02/20/17 02/20/17 02/20/17 07:00 15:00 23:00 07:00 15:00 23:00 Intake Total 735 ml 620 ml 750 ml 784 ml 0 ml Output Total 500 ml 875 ml 1000 ml 600 ml 550 ml Balance 235 ml -255 ml -250 ml 184 ml -550 ml Intake Oral 0 ml IV Total 0 ml Tube Feeding 495 ml 620 ml 550 ml 527 ml Tube Irrigant 240 ml 200 ml 257 ml Output Urine Total 500 ml 875 ml 1000 ml 600 ml 550 ml # Bowel Movements 3 2 2 2 0 Result Diagram: 02/20/17 1254 02/18/17 1240 Procedures 01/02/16 PEG placement 01/02/16 tracheostomy 07/22/2016 Wide excision of sacral skin wound, biopsy of the cavity lining and debridement. PEG tube replacement 07/29/16 Objective Remarks GENERAL: SKIN: Warm and dry. HEAD: Atraumatic. Normocephalic. EYES: Pupils equal and round. No scleral icterus. No injection or drainage. ENT: No nasal bleeding or discharge. Mucous membranes pink and moist. NECK: Trachea midline. No JVD. CARDIOVASCULAR: Regular rate and rhythm. RESPIRATORY: No accessory muscle use. Clear to auscultation. Breath sounds equal bilaterally. GASTROINTESTINAL: Abdomen soft, non-tender, nondistended. Hepatic and splenic margins not palpable. MUSCULOSKELETAL: Extremities without clubbing, cyanosis, or edema. No obvious deformities. NEUROLOGICAL: Awake and alert. No obvious cranial nerve deficits. Motor grossly within normal limits. Five out of 5 muscle strength in the arms and legs. Normal speech. PSYCHIATRIC: Appropriate mood and affect; insight and judgment normal. Laboratory Tests Test 01/05/17 01/06/17 08:35 08:41 Red Blood Count 4.43 MIL/MM3 (4.50-5.90) Hemoglobin 9.9 GM/DL (13.0-17.0) Hematocrit 32.0 % (39.0-51.0) Mean Corpuscular Volume 72.1 FL (80.0-100.0) Mean Corpuscular Hemoglobin 22.3 PG (27.0-34.0) Mean Corpuscular Hemoglobin 30.9 % Concent (32.0-36.0) Red Cell Distribution Width 19.9 % (11.6-17.2) Sodium Level 134 MEQ/L 133 MEQ/L (136-145) (136-145) Random Glucose 136 MG/DL 132 MG/DL (74-106) (74-106) Creatinine 0.59 MG/DL (0.60-1.30) GENERAL: SKIN: Warm and dry. HEAD: Atraumatic. Normocephalic. EYES: Pupils equal and round. No scleral icterus. No injection or drainage. ENT: No nasal bleeding or discharge. Mucous membranes pink and moist. NECK: Trachea midline. No JVD. TRACH. [place] CARDIOVASCULAR: Regular rate and rhythm. RESPIRATORY: No accessory muscle use. Clear to auscultation. Breath sounds equal bilaterally. GASTROINTESTINAL: Abdomen soft, non-tender, nondistended. Hepatic and splenic margins not palpable. MUSCULOSKELETAL: Extremities without clubbing, cyanosis, or edema. No obvious deformities. NEUROLOGICAL: Awake and alert. No obvious cranial nerve deficits. Motor grossly within normal limits. Five out of 5 muscle strength in the arms and legs. Normal speech. PSYCHIATRIC: Appropriate mood and affect; insight and judgment normal. Assessment and Plan Assessment and Plan impression respiratory failure CVA S/P TRACHEOSTOMY PLAN O2 NEEDED PULM. TOILET [place] poor Brandon Taylor MD Feb 20, 2017 16:59
[2017-02-20] MEDS: PARoxetine HCL SUSP 20 MG/10 ML UDC PEG SCH (18:46)
[2017-02-21] VITALS (7 sets, daily range): BP systolic 104–122; BP diastolic 72–79; PULSE 82–89; RESP 17–19; TEMP 96.1–98.7; O2SAT 97–100
[2017-02-21] MEDS: ACETIC ACID 0.25% SOLN 1000 ML IRR BTL IRRIGATION SCH ×3 (05:23→22:11)
[2017-02-21] MEDS: HEPARIN SODIUM - SQ 10,000 UNITS/ML VIAL SQ SCH ×3 (05:23→22:10)
--- NOTE | 2017-02-21 08:19 | HHI.PR ---
Subjective Remarks ass OPENS EYES NO DISTRESS o2 sat 95% Objective Vital Signs Date Time Temp Pulse Resp B/P Pulse Ox O2 Delivery O2 Flow Rate FiO2 02/21/17 00:00 98.7 82 17 117/76 100 02/20/17 21:37 98 T-piece 28 02/20/17 20:00 97.2 86 19 119/70 100 02/20/17 20:00 Trach Collar 02/20/17 16:00 98.6 80 17 101/65 100 02/20/17 13:41 98 T-piece 4.00 28 02/20/17 12:00 98.4 86 17 115/74 100 I/O 02/20/17 02/20/17 02/20/17 02/21/17 02/21/17 02/21/17 07:00 15:00 23:00 07:00 15:00 23:00 Intake Total 784 ml 0 ml 289 ml 452 ml Output Total 600 ml 550 ml 500 ml 1000 ml Balance 184 ml -550 ml -211 ml -548 ml Intake Oral 0 ml 0 ml 0 ml Tube Feeding 527 ml 289 ml 452 ml Tube Irrigant 257 ml Output Urine Total 600 ml 550 ml 500 ml 1000 ml # Bowel Movements 2 0 1 Result Diagram: 02/20/17 1254 02/18/17 1240 Procedures 01/02/16 PEG placement 01/02/16 tracheostomy 07/22/2016 Wide excision of sacral skin wound, biopsy of the cavity lining and debridement. PEG tube replacement 07/29/16 Objective Remarks GENERAL: SKIN: Warm and dry. HEAD: Atraumatic. Normocephalic. EYES: Pupils equal and round. No scleral icterus. No injection or drainage. ENT: No nasal bleeding or discharge. Mucous membranes pink and moist. NECK: Trachea midline. No JVD. CARDIOVASCULAR: Regular rate and rhythm. RESPIRATORY: No accessory muscle use. Clear to auscultation. Breath sounds equal bilaterally. GASTROINTESTINAL: Abdomen soft, non-tender, nondistended. Hepatic and splenic margins not palpable. MUSCULOSKELETAL: Extremities without clubbing, cyanosis, or edema. No obvious deformities. NEUROLOGICAL: Awake and alert. No obvious cranial nerve deficits. Motor grossly within normal limits. Five out of 5 muscle strength in the arms and legs. Normal speech. PSYCHIATRIC: Appropriate mood and affect; insight and judgment normal. Laboratory Tests Test 01/05/17 01/06/17 08:35 08:41 Red Blood Count 4.43 MIL/MM3 (4.50-5.90) Hemoglobin 9.9 GM/DL (13.0-17.0) Hematocrit 32.0 % (39.0-51.0) Mean Corpuscular Volume 72.1 FL (80.0-100.0) Mean Corpuscular Hemoglobin 22.3 PG (27.0-34.0) Mean Corpuscular Hemoglobin 30.9 % Concent (32.0-36.0) Red Cell Distribution Width 19.9 % (11.6-17.2) Sodium Level 134 MEQ/L 133 MEQ/L (136-145) (136-145) Random Glucose 136 MG/DL 132 MG/DL (74-106) (74-106) Creatinine 0.59 MG/DL (0.60-1.30) GENERAL: SKIN: Warm and dry. HEAD: Atraumatic. Normocephalic. EYES: Pupils equal and round. No scleral icterus. No injection or drainage. ENT: No nasal bleeding or discharge. Mucous membranes pink and moist. NECK: Trachea midline. No JVD. TRACH. [place] CARDIOVASCULAR: Regular rate and rhythm. RESPIRATORY: No accessory muscle use. Clear to auscultation. Breath sounds equal bilaterally. GASTROINTESTINAL: Abdomen soft, non-tender, nondistended. Hepatic and splenic margins not palpable. MUSCULOSKELETAL: Extremities without clubbing, cyanosis, or edema. No obvious deformities. NEUROLOGICAL: Awake and alert. No obvious cranial nerve deficits. Motor grossly within normal limits. Five out of 5 muscle strength in the arms and legs. Normal speech. PSYCHIATRIC: Appropriate mood and affect; insight and judgment normal. Assessment and Plan Assessment and Plan impression respiratory failure CVA S/P TRACHEOSTOMY PLAN O2 NEEDED PULM. TOILET [place] poor Brandon Taylor MD Feb 21, 2017 08:19
[2017-02-21] MEDS: BACITRACIN TOP OINT 15 GM TUBE TOP SCH ×2 (08:46→22:10)
[2017-02-21] MEDS: levETIRAcetam 500 MG/5 ML UDC TUBE SCH ×2 (08:48→22:10)
[2017-02-21] MEDS: FERROUS SULFATE 300 MG /5ML UDC PO SCH (08:48)
[2017-02-21] MEDS: ASCORBIC ACID 500 MG TAB PO SCH (08:49)
[2017-02-21] MEDS: LANSOPRAZOLE SOLUTAB 30 MG TAB NG SCH ×2 (08:49→22:10)
[2017-02-21] MEDS: DILTIAZEM HCL 30 MG TAB PEG SCH ×4 (08:49→22:10)
[2017-02-21] MEDS: SODIUM CHLORIDE 0.65% NASAL SPRAY 45 ML BTL NASAL SCH ×2 (08:49→22:09)
[2017-02-21] MEDS: ARTIFICIAL TEARS OPTH SOLN 15 ML BTL EACH EYE SCH ×2 (08:50→22:10)
[2017-02-21] MEDS: JUVEN POWDER 1 PACK G-TUBE SCH ×2 (08:50→22:13)
[2017-02-21] MEDS: ASPIRIN 325 MG TAB TUBE SCH (08:50)
[2017-02-21] MEDS: NYSTATIN 100,000 U/GM PWD 15 GM BTL TOPICAL SCH ×2 (08:50→22:11)
--- NOTE | 2017-02-21 14:53 | HHI.PR ---
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 Patient seen and examined. Spoke to patient's mother who is at bedside updated regarding patient status. Tolerating TF. Continued sacrum wound changes. Afebrile. BP appear stable no acute changes. Objective Vitals Vital Signs Date Time Temp Pulse Resp B/P Pulse Ox O2 Delivery O2 Flow Rate FiO2 02/21/17 12:00 97.7 89 18 104/74 98 02/21/17 09:45 100 T-piece 28 02/21/17 08:00 96.1 87 18 122/79 100 02/21/17 00:00 98.7 82 17 117/76 100 02/20/17 21:37 98 T-piece 28 02/20/17 20:00 97.2 86 19 119/70 100 02/20/17 20:00 Trach Collar 02/20/17 16:00 98.6 80 17 101/65 100 I/O 02/20/17 02/20/17 02/20/17 02/21/17 02/21/17 02/21/17 07:00 15:00 23:00 07:00 15:00 23:00 Intake Total 784 ml 0 ml 289 ml 452 ml 0 ml Output Total 600 ml 550 ml 500 ml 1000 ml 750 ml Balance 184 ml -550 ml -211 ml -548 ml -750 ml Intake Oral 0 ml 0 ml 0 ml 0 ml Tube Feeding 527 ml 289 ml 452 ml Tube Irrigant 257 ml Output Urine Total 600 ml 550 ml 500 ml 1000 ml 750 ml # Bowel Movements 2 0 1 0 Result Diagram: 02/20/17 1254 02/18/17 1240 Objective Remarks GENERAL: Non-verbal, opens eyes to voice and command, tracking people in room. Not in acute distress. SKIN: Warm and dry. HEENT: Normocephalic. Pupils nonicteric. Nose without bleeding. Airway patent. NECK: Supple, trachea midline. T-tube in place, site clean, dry, intact. No JVD. CARDIOVASCULAR: Regular rate and rhythm. No murmur appreciated. RESPIRATORY: Breath sounds equal bilaterally. No accessory muscle use. Trach tube in place. Bedside monitor indicated oxygen saturation was 99%. GASTROINTESTINAL: Abdomen soft, non-tender, nondistended. GJ tube noted, area around insertion was clean, dry, dressing intact. J tube clogged. MUSCULOSKELETAL: No cyanosis, or edema. PSYCHIATRIC: Pt non-verbal. NEUROLOGICAL: opens eyes able to tracks some. No movement of extremities. Muckle wasting noted Procedures 07/22/2016 Wide excision of sacral skin wound, biopsy of the cavity lining and debridement. PEG removal and Gj tube placement 07/29/16 VAC changes- M-W-F 10/23/16, 11/18, 12/31- GJ tube replacement 01/02/16 PEG placement 01/02/16 tracheostomy Date of Insertion: Feb 10, 2017 A/P Problem List: (1) CVA (cerebral vascular accident) ICD Code: I63.9 Status: Acute (2) A-fib ICD Code: I48.91 Status: Chronic (3) DM (diabetes mellitus) ICD Code: E11.9 Status: Chronic Assessment and Plan Mr. Flores is a 61 year-old male with past medical history of paroxysmal A. fib , hypertension, stage III non-Hodgkin's lymphoma status post chemotherapy who came into the hospital with altered mental status. 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 On acetaminophen with codeine for pain scale of 2-10. Vent dependent respiratory failure, currently trached and on t-piece Right upper lobe/right middle lobe pulmonary nodules - will need outpatient CT scan without contrast in 6 months to follow-up Continue with oxygen keep sat >92%. Trach changed to size #6 XLT on 01/09 Duo nebs every 6 hours Leave on TP 10/02 as tolerated Pulm toilet, trach care 01/09 CTA chest: No PE, bilateral lower lobe infiltrates. 4 mm right upper lobe/5 mm right middle lobe nodule. Pulm is following - Dr. Taylor Right hallux ingrown toenail, paronychia - Horizontal Drill Operator has seen patient. I & D with partial nail avulsion performed at bedside 02/06/17. Dressing changed, c/d/i. - Continue to monitor. -Bandage removed, toe left open to air to heal. History of paroxysmal atrial fibrillation currently in sinus tachycardia Hypertension Dyslipidemia Monitor HR and BP Continue ASA 325mg daily, Warfarin stopped due to bleeding Cardizem 30mg QID Protein calorie malnutrition Gastroesophageal reflux disease Diarrhea, negative for C. difficile. Improved On Prevacid 30 mg Q12, on tube feeds(Jevity 1.5 at 55 ml/hr) Continue bowel regimen with hold parameters, Lactinex and Imodium. G/J tube clogged, IR consulted to evaluate. Replaced on 02/14/17. Klebsiella/Pseudomonas/staph aureus HCAP PSAE UTI S/p Cefepime. Monitor for signs of infections. strep pneumonia and Legionella urinary Ag is negative C-diff PCR negative on 01/13 01/09 BC : Staph Epi, Urine cx: Pseudomonas, Sputum cx: Pseudomonas, kleb, Staph. Patient was pancultured on 01/19 (Blood, sputum, urine) NGTD in urine and blood. Sputum + for pseudomonas. Microcytic anemia Stage III a non-Hodgkin's lymphoma - s/p chemotherapy 2014 Monitor CBC No further treatment recommended per heme oncology at this time. History of diabetes mellitus. A1c 5.5. Fingersticks have been stable and were DC'd 02/01/17 Stage IV decubitus ulcers -Dressing changes daily. Wound care last saw patient on 01/17/17, no new recommendations continue packing with Betadine moistened rolled Janis and covered with ABD pad and paper tape to secure. GI prophylaxis with Prevacid 30 mg Q12 DVT prophylaxis: SCD and Heparin SQ Case discussed with pt, family member at bedside, RN, and Dr. Maya Discharge Planning discussed with CM working on placement Problem Qualifiers (1) CVA (cerebral vascular accident): (2) DM (diabetes mellitus): Qualified Code: E11.9 - Type 2 diabetes mellitus without complications Cherri Pineda Feb 21, 2017 14:53
[2017-02-21] MEDS: SENNOSIDES SYRUP 8.8 MG/5 ML CUP PEG SCH (16:38)
[2017-02-21] MEDS: PARoxetine HCL SUSP 20 MG/10 ML UDC PEG SCH (18:54)
[2017-02-22] VITALS (8 sets, daily range): BP systolic 112–121; BP diastolic 70–86; PULSE 76–90; RESP 17–20; TEMP 96.2–99.4; O2SAT 95–100
[2017-02-22] MEDS: HEPARIN SODIUM - SQ 10,000 UNITS/ML VIAL SQ SCH ×3 (06:15→20:23)
[2017-02-22] MEDS: ACETIC ACID 0.25% SOLN 1000 ML IRR BTL IRRIGATION SCH ×3 (06:15→20:26)
[2017-02-22] MEDS: NYSTATIN 100,000 U/GM PWD 15 GM BTL TOPICAL SCH ×2 (09:00→20:24)
[2017-02-22] MEDS: BACITRACIN TOP OINT 15 GM TUBE TOP SCH ×2 (09:00→20:25)
[2017-02-22] MEDS: ARTIFICIAL TEARS OPTH SOLN 15 ML BTL EACH EYE SCH ×2 (09:00→20:25)
[2017-02-22] MEDS: JUVEN POWDER 1 PACK G-TUBE SCH ×2 (09:00→20:25)
[2017-02-22] MEDS: SODIUM CHLORIDE 0.65% NASAL SPRAY 45 ML BTL NASAL SCH ×2 (09:00→20:24)
[2017-02-22] MEDS: FERROUS SULFATE 300 MG /5ML UDC PO SCH (09:38)
[2017-02-22] MEDS: ASPIRIN 325 MG TAB TUBE SCH (09:38)
[2017-02-22] MEDS: levETIRAcetam 500 MG/5 ML UDC TUBE SCH ×2 (09:39→20:22)
[2017-02-22] MEDS: DILTIAZEM HCL 30 MG TAB PEG SCH ×4 (09:39→20:24)
[2017-02-22] MEDS: LANSOPRAZOLE SOLUTAB 30 MG TAB NG SCH ×2 (09:39→20:21)
[2017-02-22] MEDS: ASCORBIC ACID 500 MG TAB PO SCH (09:41)
--- NOTE | 2017-02-22 12:09 | HHI.PR ---
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 Patient seen and examined. Spoke to patient's mother and daughter who are at bedside updated regarding patient status. Increased secretions noted. Continued sacrum wound changes. Objective Vitals Vital Signs Date Time Temp Pulse Resp B/P Pulse Ox O2 Delivery O2 Flow Rate FiO2 02/22/17 09:52 100 T-piece 5.00 28 02/22/17 08:00 99.4 90 17 121/86 97 02/22/17 03:10 99 T-piece 6.00 28 02/22/17 00:00 96.2 76 19 119/70 98 02/21/17 22:03 99 Trach Collar 6.00 28 02/21/17 21:00 5.00 28 02/21/17 20:00 96.6 83 19 121/72 97 02/21/17 16:00 96.4 86 18 109/75 100 I/O 02/21/17 02/21/17 02/21/17 02/22/17 02/22/17 02/22/17 06:59 14:59 22:59 06:59 14:59 22:59 Intake Total 452 ml 0 ml 481 ml 206 ml Output Total 1000 ml 750 ml 500 ml 1000 ml Balance -548 ml -750 ml -19 ml -794 ml Intake Oral 0 ml 0 ml 0 ml 0 ml Tube Feeding 452 ml 481 ml 206 ml Output Urine Total 1000 ml 750 ml 500 ml 1000 ml # Bowel Movements 1 0 2 Result Diagram: 02/20/17 1254 02/18/17 1240 Objective Remarks GENERAL: Non-verbal, opens eyes to voice and command, tracking people in room. Not in acute distress. SKIN: Warm and dry. HEENT: Normocephalic. Pupils nonicteric. Nose without bleeding. Airway patent. NECK: Supple, trachea midline. T-tube in place, site clean, dry, intact. No JVD. CARDIOVASCULAR: Regular rate and rhythm. No murmur appreciated. RESPIRATORY: coarse upper airways with increased secretions GASTROINTESTINAL: Abdomen soft, non-tender, nondistended. GJ tube noted, area around insertion was clean, dry, dressing intact. MUSCULOSKELETAL: No cyanosis, or edema. PSYCHIATRIC: Pt non-verbal. NEUROLOGICAL: opens eyes able to tracks some. No movement of extremities. Muckle wasting noted Procedures 07/22/2016 Wide excision of sacral skin wound, biopsy of the cavity lining and debridement. PEG removal and Gj tube placement 07/29/16 VAC changes- M-W-F 10/23/16, 11/18, 12/31- GJ tube replacement 01/02/16 PEG placement 01/02/16 tracheostomy Date of Insertion: Feb 10, 2017 A/P Problem List: (1) CVA (cerebral vascular accident) ICD Code: I63.9 Status: Acute (2) A-fib ICD Code: I48.91 Status: Chronic (3) DM (diabetes mellitus) ICD Code: E11.9 Status: Chronic Assessment and Plan Mr. Flores is a 61 year-old male with past medical history of paroxysmal A. fib , hypertension, stage III non-Hodgkin's lymphoma status post chemotherapy who came into the hospital with altered mental status. 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 On acetaminophen with codeine for pain scale of 2-10. Vent dependent respiratory failure, currently trached and on t-piece Right upper lobe/right middle lobe pulmonary nodules - will need outpatient CT scan without contrast in 6 months to follow-up Increased secretions noted Continue with oxygen keep sat >92%. Trach changed to size #6 XLT on 01/09 Duo nebs every 6 hours Leave on TP 24/ as tolerated Pulm toilet, trach care 01/09 CTA chest: No PE, bilateral lower lobe infiltrates. 4 mm right upper lobe/5 mm right middle lobe nodule. Pulm is following - Dr. Taylor Levsin 0.25 mg BID x 3 days CXR, CBC, BMP, sputum culture ordered and pending- Discussed with Dr. Maya Right hallux ingrown toenail, paronychia - Software Analyst has seen patient. I & D with partial nail avulsion performed at bedside 02/06/17. Dressing changed, c/d/i. - Continue to monitor. -Bandage removed, toe left open to air to heal. History of paroxysmal atrial fibrillation currently in sinus tachycardia Hypertension Dyslipidemia Monitor HR and BP Continue ASA 325mg daily, Warfarin stopped due to bleeding Cardizem 30mg QID Protein calorie malnutrition Gastroesophageal reflux disease Diarrhea, negative for C. difficile. Improved On Prevacid 30 mg Q12, on tube feeds(Jevity 1.5 at 55 ml/hr) Continue bowel regimen with hold parameters, Lactinex and Imodium. G/J tube clogged, IR consulted to evaluate. Replaced on 02/14/17. Klebsiella/Pseudomonas/staph aureus HCAP PSAE UTI S/p Cefepime. Monitor for signs of infections. strep pneumonia and Legionella urinary Ag is negative C-diff PCR negative on 01/13 01/09 BC : Staph Epi, Urine cx: Pseudomonas, Sputum cx: Pseudomonas, kleb, Staph. Patient was pancultured on 01/19 (Blood, sputum, urine) NGTD in urine and blood. Sputum + for pseudomonas. Microcytic anemia Stage III a non-Hodgkin's lymphoma - s/p chemotherapy 2014 Monitor CBC No further treatment recommended per heme oncology at this time. History of diabetes mellitus. A1c 5.5. Fingersticks have been stable and were DC'd 02/01/17 Stage IV decubitus ulcers -Dressing changes daily. Wound care last saw patient on 01/17/17, no new recommendations continue packing with Betadine moistened rolled Janis and covered with ABD pad and paper tape to secure. GI prophylaxis with Prevacid 30 mg Q12 DVT prophylaxis: SCD and Heparin SQ Case discussed with pt, family member at bedside, RN, and Dr. Maya Discharge Planning discussed with CM working on placement Problem Qualifiers (1) CVA (cerebral vascular accident): (2) DM (diabetes mellitus): Qualified Code: E11.9 - Type 2 diabetes mellitus without complications Cherri Pineda Feb 22, 2017 12:08
--- NOTE | 2017-02-22 13:16 | HHI.PR ---
Subjective Remarks ass OPENS EYES NO DISTRESS o2 sat 95% congested this am , better post suction Objective Vital Signs Date Time Temp Pulse Resp B/P Pulse Ox O2 Delivery O2 Flow Rate FiO2 02/22/17 12:00 97.2 90 19 113/70 100 02/22/17 09:52 100 T-piece 5.00 28 02/22/17 08:00 99.4 90 17 121/86 97 02/22/17 03:10 99 T-piece 6.00 28 02/22/17 00:00 96.2 76 19 119/70 98 02/21/17 22:03 99 Trach Collar 6.00 28 02/21/17 21:00 5.00 28 02/21/17 20:00 96.6 83 19 121/72 97 02/21/17 16:00 96.4 86 18 109/75 100 I/O 02/21/17 02/21/17 02/21/17 02/22/17 02/22/17 02/22/17 07:00 15:00 23:00 07:00 15:00 23:00 Intake Total 452 ml 0 ml 481 ml 206 ml Output Total 1000 ml 750 ml 500 ml 1000 ml Balance -548 ml -750 ml -19 ml -794 ml Intake Oral 0 ml 0 ml 0 ml 0 ml Tube Feeding 452 ml 481 ml 206 ml Output Urine Total 1000 ml 750 ml 500 ml 1000 ml # Bowel Movements 1 0 2 Result Diagram: 02/20/17 1254 02/18/17 1240 Procedures 01/02/16 PEG placement 01/02/16 tracheostomy 07/22/2016 Wide excision of sacral skin wound, biopsy of the cavity lining and debridement. PEG tube replacement 07/29/16 Objective Remarks GENERAL: SKIN: Warm and dry. HEAD: Atraumatic. Normocephalic. EYES: Pupils equal and round. No scleral icterus. No injection or drainage. ENT: No nasal bleeding or discharge. Mucous membranes pink and moist. NECK: Trachea midline. No JVD. CARDIOVASCULAR: Regular rate and rhythm. RESPIRATORY: No accessory muscle use. Clear to auscultation. Breath sounds equal bilaterally. GASTROINTESTINAL: Abdomen soft, non-tender, nondistended. Hepatic and splenic margins not palpable. MUSCULOSKELETAL: Extremities without clubbing, cyanosis, or edema. No obvious deformities. NEUROLOGICAL: Awake and alert. No obvious cranial nerve deficits. Motor grossly within normal limits. Five out of 5 muscle strength in the arms and legs. Normal speech. PSYCHIATRIC: Appropriate mood and affect; insight and judgment normal. Laboratory Tests Test 01/05/17 01/06/17 08:35 08:41 Red Blood Count 4.43 MIL/MM3 (4.50-5.90) Hemoglobin 9.9 GM/DL (13.0-17.0) Hematocrit 32.0 % (39.0-51.0) Mean Corpuscular Volume 72.1 FL (80.0-100.0) Mean Corpuscular Hemoglobin 22.3 PG (27.0-34.0) Mean Corpuscular Hemoglobin 30.9 % Concent (32.0-36.0) Red Cell Distribution Width 19.9 % (11.6-17.2) Sodium Level 134 MEQ/L 133 MEQ/L (136-145) (136-145) Random Glucose 136 MG/DL 132 MG/DL (74-106) (74-106) Creatinine 0.59 MG/DL (0.60-1.30) GENERAL: SKIN: Warm and dry. HEAD: Atraumatic. Normocephalic. EYES: Pupils equal and round. No scleral icterus. No injection or drainage. ENT: No nasal bleeding or discharge. Mucous membranes pink and moist. NECK: Trachea midline. No JVD. TRACH. [place] CARDIOVASCULAR: Regular rate and rhythm. RESPIRATORY: No accessory muscle use. Clear to auscultation. Breath sounds equal bilaterally. GASTROINTESTINAL: Abdomen soft, non-tender, nondistended. Hepatic and splenic margins not palpable. MUSCULOSKELETAL: Extremities without clubbing, cyanosis, or edema. No obvious deformities. NEUROLOGICAL: Awake and alert. No obvious cranial nerve deficits. Motor grossly within normal limits. Five out of 5 muscle strength in the arms and legs. Normal speech. PSYCHIATRIC: Appropriate mood and affect; insight and judgment normal. Assessment and Plan Assessment and Plan impression respiratory failure CVA S/P TRACHEOSTOMY PLAN O2 NEEDED PULM. TOILET Stewart poor Brandon Taylor MD Feb 22, 2017 13:15
--- NOTE | 2017-02-22 13:35 | RADRPT ---
EXAM DATE/TIME: 02/22/2017 13:12 [facility] COMPARISON: CHEST SINGLE AP, January 20, 2017, 4:22. INDICATIONS : Chest congestion, difficulty breathing MEDICAL HISTORY : Lymphoma. Hypertension Diabetes mellitus type II. A-Fib SURGICAL HISTORY : None. ENCOUNTER: Initial ACUITY: 1 day PAIN SCORE: Non-responsive. LOCATION: Bilateral chest FINDINGS: Trace left base atelectasis. No pneumonia seen. No pleural effusion or pneumothorax. Heart size stable, thin normal limits. Tracheostomy again noted. Tip is approximately 5 cm above the geno. CONCLUSION: Minimal atelectasis. Otherwise -1 view chest x-ray. Glen Moore MD on February 22, 2017 at 13:33 Board Certified Radiologist. This report was verified electronically.
[2017-02-22] MEDS: HYOSCYAMINE 0.125 MG TAB G-TUBE PRN (13:39)
[2017-02-22 17:13] LABS: AUTOMATED NEUTROPHIL # 3.1 TH/MM3 (1.8-7.7); BASOPHIL # 0.1 TH/MM3 (0-0.2); BASOPHIL % 1.1 % (0.0-2.0); EOSINOPHIL # 0.2 TH/MM3 (0-0.4); EOSINOPHIL % 5.1 % (0.0-4.0); HEMATOCRIT 30.2 % (39.0-51.0); HEMO FLAGS DIFF FINAL; LYMPH % 22.2 % (9.0-44.0); LYMPHOCYTE # 1.1 TH/MM3 (1.0-4.8); MEAN CELL VOLUME 72.3 FL (80.0-100.0); MEAN CORPUSCULAR HEMOGLOBIN 22.5 PG (27.0-34.0); MEAN CORPUSCULAR HGB CONC 31.1 % (32.0-36.0); MONO % 6.7 % (0.0-8.0); NEUT % 64.9 % (16.0-70.0); PLATELET COUNT 214 TH/MM3 (150-450); RED BLOOD COUNT 4.18 MIL/MM3 (4.50-5.90); RED CELL DISTRIBUTION WIDTH 20.3 % (11.6-17.2); WHITE BLOOD COUNT 4.8 TH/MM3 (4.0-11.0)
[2017-02-22 17:16] LABS: BACTERIA, URINE MOD /hpf; BLOOD, URINE MOD (NEG); GLUCOSE,URINE NEG (NEG); KETONE, URINE NEG (NEG); MUCUS URINE FEW /lpf (OCC); NITRITE,URINE NEG (NEG); PH, URINE 6.5 (5.0-8.5); SQUAMOUS EPITHELIAL CELL URINE <1 /hpf (0-5); URINE COLOR YELLOW (YELLW/STRAW)
[2017-02-22 17:17] LABS: COMMENT (UR) CATH-CULTURE IND; CULTURE IF INDICATED CATH CULTURE IND
[2017-02-22 17:35] LABS: BICARBONATE 25.5 MEQ/L (21.0-32.0)
[2017-02-22] MEDS: PARoxetine HCL SUSP 20 MG/10 ML UDC PEG SCH (18:06)
[2017-02-22] MEDS: SENNOSIDES SYRUP 8.8 MG/5 ML CUP PEG SCH (18:06)
[2017-02-22] MEDS: cefTRIAXone INJ 1,000 MG in SODIUM CHLORIDE 0.9% INJ 100 ML IV SCH (20:21)
[2017-02-22] MEDS: HYOSCYAMINE 0.125 MG TAB PO SCH (20:23)
[2017-02-23] VITALS: BP 104/71; PULSE 89; RESP 20; TEMP 98; O2SAT 97
[2017-02-23] MEDS: HEPARIN SODIUM - SQ 10,000 UNITS/ML VIAL SQ SCH ×3 (05:57→23:17)
[2017-02-23] MEDS: ACETIC ACID 0.25% SOLN 1000 ML IRR BTL IRRIGATION SCH ×3 (05:57→23:16)
[2017-02-23 08:00] VITALS: BP 105/67; PULSE 99; RESP 17; TEMP 96.9; O2SAT 96
[2017-02-23] MEDS: FERROUS SULFATE 300 MG /5ML UDC PO SCH (08:16)
[2017-02-23] MEDS: levETIRAcetam 500 MG/5 ML UDC TUBE SCH ×2 (08:16→21:19)
[2017-02-23] MEDS: LANSOPRAZOLE SOLUTAB 30 MG TAB NG SCH ×2 (08:16→21:18)
[2017-02-23] MEDS: BACITRACIN TOP OINT 15 GM TUBE TOP SCH ×2 (08:16→21:00)
[2017-02-23] MEDS: ASPIRIN 325 MG TAB TUBE SCH (08:16)
[2017-02-23] MEDS: HYOSCYAMINE 0.125 MG TAB PO SCH ×2 (08:16→21:17)
[2017-02-23] MEDS: NYSTATIN 100,000 U/GM PWD 15 GM BTL TOPICAL SCH ×2 (08:16→21:00)
[2017-02-23] MEDS: ASCORBIC ACID 500 MG TAB PO SCH (08:16)
[2017-02-23] MEDS: DILTIAZEM HCL 30 MG TAB PEG SCH ×4 (08:17→21:00)
[2017-02-23] MEDS: SODIUM CHLORIDE 0.65% NASAL SPRAY 45 ML BTL NASAL SCH ×2 (08:17→21:00)
[2017-02-23] MEDS: JUVEN POWDER 1 PACK G-TUBE SCH ×2 (08:17→21:00)
[2017-02-23] MEDS: ARTIFICIAL TEARS OPTH SOLN 15 ML BTL EACH EYE SCH ×2 (08:17→21:00)
[2017-02-23 09:55] VITALS: O2SAT 99
[2017-02-23 12:00] VITALS: BP 115/75; PULSE 95; RESP 18; TEMP 97.5; O2SAT 100
[2017-02-23] MEDS: SENNOSIDES SYRUP 8.8 MG/5 ML CUP PEG SCH (14:31)
--- NOTE | 2017-02-23 14:35 | HHI.PR ---
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 Patient seen and examined. Spoke to patient's mother and daughter who are at bedside updated regarding patient status. Family concerned regarding clogged J tube and ingrown toe nail right 1st toe. Patient laying in bed able to open eyes through out exam and does seem to tract. Appears to be in no acute distress. Objective Vitals Vital Signs Date Time Temp Pulse Resp B/P Pulse Ox O2 Delivery O2 Flow Rate FiO2 02/23/17 12:00 97.5 95 18 115/75 100 02/23/17 08:31 T-Piece 28 02/23/17 08:00 96.9 99 17 105/67 96 02/23/17 00:00 98.0 89 20 104/71 97 02/22/17 21:59 95 T-piece 6.00 28 02/22/17 20:00 88 20 112/72 98 02/22/17 19:50 98 Trach Collar 4.00 Humidified 02/22/17 16:00 98.1 87 17 116/76 100 I/O 02/22/17 02/22/17 02/22/17 02/23/17 02/23/17 02/23/17 07:00 15:00 23:00 07:00 15:00 23:00 Intake Total 206 ml 373 ml 100 ml 0 ml Output Total 1000 ml 400 ml 1450 ml 650 ml Balance -794 ml -27 ml -1350 ml -650 ml Intake Oral 0 ml 0 ml 0 ml 0 ml IV Total 100 ml Tube Feeding 206 ml 193 ml Tube Irrigant 120 ml Other 60 ml Output Urine Total 1000 ml 400 ml 1450 ml 650 ml # Bowel Movements 2 0 1 1 Result Diagram: 02/22/17 1647 02/22/17 1647 Objective Remarks GENERAL: Non-verbal, opens eyes to voice and command, tracking people in room. Not in acute distress. SKIN: Warm and dry. right 1st toe lateral aspect of tissue surrounding nail is red and inflamed. HEENT: Normocephalic. Pupils nonicteric. Nose without bleeding. Airway patent. NECK: Supple, trachea midline. T-tube in place, site clean, dry, intact. No JVD. CARDIOVASCULAR: Regular rate and rhythm. No murmur appreciated. RESPIRATORY: coarse upper airways with increased secretions GASTROINTESTINAL: Abdomen soft, non-tender, nondistended. GJ tube noted, area around insertion was clean, dry, dressing intact. MUSCULOSKELETAL: No cyanosis, or edema. PSYCHIATRIC: Pt non-verbal. NEUROLOGICAL: opens eyes able to tracks some. No movement of extremities. Muckle wasting noted Procedures 07/22/2016 Wide excision of sacral skin wound, biopsy of the cavity lining and debridement. PEG removal and Gj tube placement 07/29/16 VAC changes- M-W-F 10/23/16, 11/18, 12/31- GJ tube replacement 01/02/16 PEG placement 01/02/16 tracheostomy Date of Insertion: Feb 10, 2017 A/P Problem List: (1) CVA (cerebral vascular accident) ICD Code: I63.9 Status: Acute (2) A-fib ICD Code: I48.91 Status: Chronic (3) DM (diabetes mellitus) ICD Code: E11.9 Status: Chronic Assessment and Plan Mr. Flores is a 61 year-old male with past medical history of paroxysmal A. fib , hypertension, stage III non-Hodgkin's lymphoma status post chemotherapy who came into the hospital with altered mental status. 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 On acetaminophen with codeine for pain scale of 2-10. Vent dependent respiratory failure, currently trached and on t-piece Right upper lobe/right middle lobe pulmonary nodules - will need outpatient CT scan without contrast in 6 months to follow-up Increased secretions noted Continue with oxygen keep sat >92%. Trach changed to size #6 XLT on 01/09 Duo nebs every 6 hours Leave on TP 10/02 as tolerated Pulm toilet, trach care 01/09 CTA chest: No PE, bilateral lower lobe infiltrates. 4 mm right upper lobe/5 mm right middle lobe nodule. Pulm is following - Dr. Taylor continue Levsin 0.25 mg BID x 3 days total CXR 02/22/17 reveals minimal atelectasis Right hallux ingrown toenail, paronychia- medial aspect 02/23/17 new area of paronychia right hallux ingrown toe nail lateral aspect - Brine Supervisor has seen patient. I & D with partial nail avulsion performed at bedside 02/06/17. - Continue to monitor. - Reconsult podiatry pt now with ingrown toenail on lateral aspect right hallux History of paroxysmal atrial fibrillation currently in sinus tachycardia Hypertension Dyslipidemia Monitor HR and BP Continue ASA 325mg daily, Warfarin stopped due to bleeding Cardizem 30mg QID Protein calorie malnutrition Gastroesophageal reflux disease Diarrhea, negative for C. difficile. Improved On Prevacid 30 mg Q12, on tube feeds(Jevity 1.5 at 55 ml/hr) Continue bowel regimen with hold parameters, Lactinex and Imodium. G/J tube clogged, IR consulted to evaluate. Replaced on 02/14/17. 02/22/17 J tube again clogged- consulted IR to evaluate discussed proper G/J tube care and flush procedures with nursing staff Klebsiella/Pseudomonas/staph aureus HCAP PSAE UTI S/p Cefepime. Monitor for signs of infections. strep pneumonia and Legionella urinary Ag is negative C-diff PCR negative on 01/13 01/09 BC : Staph Epi, Urine cx: Pseudomonas, Sputum cx: Pseudomonas, kleb, Staph. Patient was pancultured on 01/19 (Blood, sputum, urine) NGTD in urine and blood. Sputum + for pseudomonas. 02/22/17 UTI UA reviewed consistent with UTI- culture pending Rocephin IV start will adjusted based on culture results Culture showing gram negative rods- await further results change Arevalo catheter Microcytic anemia Stage III a non-Hodgkin's lymphoma - s/p chemotherapy 2014 Monitor CBC No further treatment recommended per heme oncology at this time. History of diabetes mellitus. A1c 5.5. Fingersticks have been stable and were DC'd 02/01/17 Stage IV decubitus ulcers -Dressing changes daily. Wound care last saw patient on 01/17/17, no new recommendations continue packing with Betadine moistened rolled Janis and covered with ABD pad and paper tape to secure. GI prophylaxis with Prevacid 30 mg Q12 DVT prophylaxis: SCD and Heparin SQ Case discussed with pt, family member at bedside, RN, and Dr. Maya Discharge Planning discussed with CM working on placement Problem Qualifiers (1) CVA (cerebral vascular accident): (2) DM (diabetes mellitus): Qualified Code: E11.9 - Type 2 diabetes mellitus without complications Cherri Pineda Feb 23, 2017 14:34
[2017-02-23 16:00] VITALS: BP 111/72; PULSE 88; RESP 16; TEMP 97.4; O2SAT 100
[2017-02-23] MEDS: PARoxetine HCL SUSP 20 MG/10 ML UDC PEG SCH (18:25)
[2017-02-23 20:00] VITALS: BP 109/71; PULSE 85; RESP 18; TEMP 96.9; O2SAT 100; O2SAT 99
[2017-02-23] MEDS: cefTRIAXone INJ 1,000 MG in SODIUM CHLORIDE 0.9% INJ 100 ML IV SCH (21:15)
[2017-02-24] VITALS (9 sets, daily range): BP systolic 105–126; BP diastolic 67–82; PULSE 78–89; RESP 17–19; TEMP 96.8–97.7; O2SAT 97–100
[2017-02-24] MEDS: HEPARIN SODIUM - SQ 10,000 UNITS/ML VIAL SQ SCH ×3 (04:00→19:45)
[2017-02-24] MEDS: ACETIC ACID 0.25% SOLN 1000 ML IRR BTL IRRIGATION SCH ×3 (04:03→19:46)
[2017-02-24] MEDS: levETIRAcetam 500 MG/5 ML UDC TUBE SCH ×2 (08:53→19:45)
[2017-02-24] MEDS: ASCORBIC ACID 500 MG TAB PO SCH (08:53)
[2017-02-24] MEDS: FERROUS SULFATE 300 MG /5ML UDC PO SCH (08:53)
[2017-02-24] MEDS: ASPIRIN 325 MG TAB TUBE SCH (08:53)
[2017-02-24] MEDS: DILTIAZEM HCL 30 MG TAB PEG SCH ×4 (08:53→19:46)
[2017-02-24] MEDS: LANSOPRAZOLE SOLUTAB 30 MG TAB NG SCH ×2 (08:53→19:43)
[2017-02-24] MEDS: HYOSCYAMINE 0.125 MG TAB PO SCH ×2 (08:53→19:44)
[2017-02-24] MEDS: JUVEN POWDER 1 PACK G-TUBE SCH ×2 (08:54→19:46)
[2017-02-24] MEDS: NYSTATIN 100,000 U/GM PWD 15 GM BTL TOPICAL SCH ×2 (08:54→19:45)
[2017-02-24] MEDS: SODIUM CHLORIDE 0.65% NASAL SPRAY 45 ML BTL NASAL SCH ×2 (08:54→19:46)
[2017-02-24] MEDS: ARTIFICIAL TEARS OPTH SOLN 15 ML BTL EACH EYE SCH ×2 (08:54→19:46)
[2017-02-24] MEDS: BACITRACIN TOP OINT 15 GM TUBE TOP SCH ×2 (08:56→19:45)
--- NOTE | 2017-02-24 10:07 | HHI.PR ---
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 Patient seen and examined today. Family at the bedside. Family expresses concern regarding GJ tube being clogged. Also patient continues to have secretions. Patient laying in bed, eyes opening, occasionally tracking, does not follow commands, appears comfortable. Objective Vitals Vital Signs Date Time Temp Pulse Resp B/P Pulse Ox O2 Delivery O2 Flow Rate FiO2 02/24/17 08:53 98 T-piece 5.00 28 02/24/17 08:00 97.4 85 17 126/82 99 02/24/17 03:36 98 T-piece 5.00 28 02/24/17 00:00 96.8 78 18 105/70 100 02/23/17 21:00 Trach Collar T-Piece Humidified 02/23/17 20:00 99 T-piece 28 02/23/17 20:00 96.9 85 18 109/71 100 02/23/17 16:00 97.4 88 16 111/72 100 02/23/17 12:00 97.5 95 18 115/75 100 I/O 02/23/17 02/23/17 02/23/17 02/24/17 02/24/17 02/24/17 07:00 15:00 23:00 07:00 15:00 23:00 Intake Total 0 ml 845 ml 0 ml 0 ml 845 ml Output Total 650 ml 325 ml 900 ml 500 ml Balance -650 ml 520 ml -900 ml -500 ml 845 ml Intake Oral 0 ml 0 ml 0 ml 0 ml 0 ml Tube Feeding 485 ml TPN/PPN 845 ml Tube Irrigant 120 ml Other 240 ml Output Urine Total 650 ml 325 ml 900 ml 500 ml # Bowel Movements 1 0 1 1 Result Diagram: 02/22/17 1647 02/22/17 1647 Imaging Last Impressions Chest X-Ray 02/22/17 0000 Signed Impressions: Service Date/Time: Wednesday, February 22, 2017 13:12 - CONCLUSION: Minimal atelectasis. Otherwise -1 view chest x-ray. Glen Moore MD Tube Change 02/14/17 0000 Signed Impressions: Service Date/Time: Tuesday, February 14, 2017 00:00 - CONCLUSION: Uncomplicated gastrojejunostomy tube exchange as above. Scott Griffin MD Head CT 01/09/17 0000 Signed Impressions: Service Date/Time: December 17:43 - CONCLUSION: 1. No acute hemorrhage or mass effect. 2. 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 3. Atrophy. Gerald Mukherjee MD CT Angiography 01/09/17 0000 Signed Impressions: Service Date/Time: December 17:49 - CONCLUSION: 1. No evidence of pulmonary emboli. 2. Patchy consolidation in both posterior lower lobes right greater than left. This could represent pneumonia. 3. 2 small noncalcified pulmonary nodules which are nonspecific finding. Short-term CT followup is recommended beginning in 6 months with a noncontrast outpatient CT. Gerald Mukherjee MD Tube Check 12/04/16 0000 Signed Impressions: Service Date/Time: Sunday, December 04, 2016 17:58 - CONCLUSION: Uncomplicated tube injection as above. the tube is in good position and functions normally. Moises Ramírez MD Abdomen X-Ray 08/31/16 0000 Signed Impressions: Service Date/Time: Wednesday, August 31, 2016 16:36 - CONCLUSION: 1. No acute findings. Mild constipation. Durga Dotson MD Abdomen/Pelvis CT 04/12/16 0000 Signed Impressions: Service Date/Time: Tuesday, April 12, 2016 20:52 - CONCLUSION: 1. 6.4 cm necrotic mass or abscess in the soft tissues posteriorly just below the sacrum associated with some bony destructive change of the lower most sacrum and coccyx with inflammatory changes extending into the ischiorectal fossa and into the presacral retroperitoneum predominantly on the left side. There is associated fairly marked mural thickening of the anal verge and rectum. 2. There is gastrostomy and Arevalo catheter present. Stable abdominal aortic aneurysm. Durga Dotson MD Head Magnetic Resonance Angiography 03/05/16 0000 Signed Impressions: Service Date/Time: Saturday, March 05, 2016 09:26 - CONCLUSION: Persistent high-grade subtotal occlusive stenotic lesions in the distal right vertebral artery and proximal basilar artery with significant improvement in flow and recanalization following initial presentation of thrombosis. Stable interstitial circulation without significant stenosis. Ernesto Kulkarni MD Brain MRI 03/05/16 0000 Signed Impressions: Service Date/Time: Saturday, March 05, 2016 09:26 - CONCLUSION: Evolving brainstem and bilateral occipital lobe infarcts with evidence of subacute hemorrhagic products. There is decreasing restricted diffusion and increasing loss of volume characteristic of a subacute to chronic infarct. No evidence of acute infarct, acute hemorrhage mass or edema. Ernesto Kulkarni MD Neck Magnetic Resonance Angiography 12/22/15 1445 Signed Impressions: Service Date/Time: Tuesday, December 22, 2015 09:22 - CONCLUSION: Variant origin of the left vertebral artery from the aortic arch. No evidence of carotid stenosis. Glen Zamora MD Head/Brain Mag Res Venography 12/22/15 0000 Signed Impressions: Service Date/Time: Tuesday, December 22, 2015 09:22 - CONCLUSION: Normal MRV. Jonel Jones Jr., MD Objective Remarks GENERAL: Nonverbal, eyes opening, occasional tracking, in no apparent distress. SKIN: Warm and dry. Right 1st toe lateral aspect of tissue surrounding nail is red and inflamed. HEENT: Normocephalic. Pupils nonicteric. Nose without bleeding. Airway patent. NECK: Trachea midline.T-tube in place, site clean, dry, intact. No JVD. CARDIOVASCULAR: Regular rate and rhythm without murmurs, gallops, or rubs. RESPIRATORY: Rhonchi throughout. Coarse breath sounds. Secretions white moderately thick GASTROINTESTINAL: Abdomen soft, non-tender, nondistended. Bowel Sounds hypoactive. GJ tube in place, below incision site area slight erythema, no drainage noted. MUSCULOSKELETAL: Extremities without clubbing, cyanosis, or edema. NEUROLOGICAL: Awake and alert. Not following commands. Nonverbal. Procedures 07/22/2016 Wide excision of sacral skin wound, biopsy of the cavity lining and debridement. PEG removal and Gj tube placement 07/29/16 VAC changes- M-W-F 10/23/16, 11/18, 12/31- GJ tube replacement 01/02/16 PEG placement 01/02/16 tracheostomy Date of Insertion: Feb 10, 2017 A/P Problem List: (1) CVA (cerebral vascular accident) ICD Code: I63.9 Status: Acute (2) A-fib ICD Code: I48.91 Status: Chronic (3) DM (diabetes mellitus) ICD Code: E11.9 Status: Chronic Assessment and Plan 60 year-old male with past medical history of paroxysmal A. fib, hypertension, stage III non-Hodgkin's lymphoma status post chemotherapy who came into the hospital with altered mental status. 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 Intermittently tracks with eyes. Sister at bedside. - Continue Keppra 500mg BID for seizure prophylaxis. - PT/OT signed off as patient is unable to participate. - On Paxil 20 by mouth daily for depression. - On acetaminophen with codeine for pain scale of 2-10. - No placement available. Appreciate case management assistance. Last CM note indicates continued difficult placement and has medicaid with no accepting facility. Rehab Medicine (Dr. Pickens) following. Chronic respiratory failure secondary to CVA - Status post tracheostomy. Continue pulmonary toilet and bronchodilators as needed. Continue trach care, suctioning. Levsin as needed. - Trach changed to size #6 XLT on 01/09 - Duo nebs every 6 hours - Pulmonary currently following, appreciate assistance. - 01/09 CTA chest: No PE, bilateral lower lobe infiltrates. 4 mm right upper lobe/5 mm right middle lobe nodule. - CXR 02/22/17 reveals minimal atelectasis Right hallux ingrown toenail, paronychia- medial aspect 02/23/17 new area of paronychia right hallux ingrown toe nail lateral aspect - [employer] has seen patient. I & D with partial nail avulsion performed at bedside 02/06/17. - Reconsult podiatry pt now with ingrown toenail on lateral aspect right hallux Atrial fibrillation, controlled Hypertension Dyslipidemia - Continue rate control with Cardizem and metoprolol. - Echocardiogram in November 2015 shows preserved ejection fraction. Coumadin discontinued secondary to bleeding. - Continue aspirin and prophylactic heparin dose. History of non-Hodgkin's lymphoma - Status post brain biopsy on December 13 by neurosurgery. Pathology consistent with acute infarct without evidence of lymphoma. Oncology has signed off. Diabetes mellitus Type 2 - Hemoglobin A1c is 5.5. - Fingersticks have been stable and were DC'd 02/01/17 Decubitus ulcer stage IV - Continue wound care, twice-daily dressing changes. Wound care recommendations last updated 12/12/16. Continue pressure relief measures including turning and positioning. Patient's family has declined a diverting colostomy. Previous Wound culture growing Klebsiella and Enterococcus Faecalis. Previously on Augmentin. Status post wide excision of sacral skin and biopsy of the cavity lining with debridement on 07/22/16. - Wound care last saw patient on 01/17/17, no new recommendations continue packing with Betadine moistened rolled Janis and covered with ABD pad and paper tape to secure. - Continue to monitor. Continue pressure-relief. Protein calorie malnutrition Gastroesophageal reflux disease Gastric ulcer, reflux esophagitis Diarrhea, negative for C. difficile. Improved - EGD on 07/30/16 showed gastric ulcers. - On Prevacid 30 mg Q12, on tube feeds(Jevity 1.5 at 55 ml/hr) - Continue bowel regimen with hold parameters, Lactinex and Imodium. - G/J tube clogged, IR consulted to evaluate. Replaced on 02/14/17. - 02/22/17 J tube again clogged- consulted IR to evaluate. - Reiterated proper G/J tube care and flush procedures. Discuss and explained with family. UTI pseudomonas aeruginosa Recurrent - Previous Repeat Ucx 08/28/16 negative. - 02/22/17 UA consistent with UTI - cultures pseudomonas, currently on Rocephin will change to cefepime since last culture was also Pseudomonas and was sensitive to cefepime. - Waiting for sensitivities will change ABX if not sensitive, Arevalo change Klebsiella/Pseudomonas/staph aureus HCAP PSAE UTI - S/p Cefepime. Monitor for signs of infections. - strep pneumonia and Legionella urinary Ag is negative - C-diff PCR negative on 01/13 - 01/09 BC : Staph Epi, Urine cx: Pseudomonas, Sputum cx: Pseudomonas, kleb, Staph. - Patient was pancultured on 01/19 (Blood, sputum, urine) NGTD in urine and blood. Sputum + for pseudomonas. DVT prophylaxis: SCDs. Heparin 5,000 units sq Q8hr. Discussed with pt's family members, nursing, and Dr. Maya Discharge Planning Case management involved with discharge planning. As per case management's note , 02/22/17 Ji long long-term case management and per Ji has spoken with Aylin of [facility] and at that admission to Center with rehabilitation rehabilitation until Friday02/24/17. Will follow-up. Problem Qualifiers (1) CVA (cerebral vascular accident): (2) DM (diabetes mellitus): Qualified Code: E11.9 - Type 2 diabetes mellitus without complications Kurt Rosa Feb 24, 2017 10:07
--- NOTE | 2017-02-24 15:54 | HHI.PR ---
Subjective Remarks ass OPENS EYES NO DISTRESS o2 sat 95% Objective Vital Signs Date Time Temp Pulse Resp B/P Pulse Ox O2 Delivery O2 Flow Rate FiO2 02/24/17 12:49 107/70 02/24/17 11:51 96.9 81 17 117/68 97 02/24/17 08:53 98 T-piece 5.00 28 02/24/17 08:00 97.4 85 17 126/82 99 02/24/17 03:36 98 T-piece 5.00 28 02/24/17 00:00 96.8 78 18 105/70 100 02/23/17 21:00 Trach Collar T-Piece Humidified 02/23/17 20:00 99 T-piece 28 02/23/17 20:00 96.9 85 18 109/71 100 02/23/17 16:00 97.4 88 16 111/72 100 I/O 02/23/17 02/23/17 02/23/17 02/24/17 02/24/17 02/24/17 07:00 15:00 23:00 07:00 15:00 23:00 Intake Total 0 ml 845 ml 0 ml 0 ml 845 ml Output Total 650 ml 325 ml 900 ml 500 ml 550 ml Balance -650 ml 520 ml -900 ml -500 ml 295 ml Intake Oral 0 ml 0 ml 0 ml 0 ml 0 ml Tube Feeding 485 ml TPN/PPN 845 ml Tube Irrigant 120 ml Other 240 ml Output Urine Total 650 ml 325 ml 900 ml 500 ml 550 ml # Bowel Movements 1 0 1 1 0 Result Diagram: 02/22/17 1647 02/22/17 1647 Procedures 01/02/16 PEG placement 01/02/16 tracheostomy 07/22/2016 Wide excision of sacral skin wound, biopsy of the cavity lining and debridement. PEG tube replacement 07/29/16 Objective Remarks GENERAL: SKIN: Warm and dry. HEAD: Atraumatic. Normocephalic. EYES: Pupils equal and round. No scleral icterus. No injection or drainage. ENT: No nasal bleeding or discharge. Mucous membranes pink and moist. NECK: Trachea midline. No JVD. CARDIOVASCULAR: Regular rate and rhythm. RESPIRATORY: No accessory muscle use. Clear to auscultation. Breath sounds equal bilaterally. GASTROINTESTINAL: Abdomen soft, non-tender, nondistended. Hepatic and splenic margins not palpable. MUSCULOSKELETAL: Extremities without clubbing, cyanosis, or edema. No obvious deformities. NEUROLOGICAL: Awake and alert. No obvious cranial nerve deficits. Motor grossly within normal limits. Five out of 5 muscle strength in the arms and legs. Normal speech. PSYCHIATRIC: Appropriate mood and affect; insight and judgment normal. Laboratory Tests Test 01/05/17 01/06/17 08:35 08:41 Red Blood Count 4.43 MIL/MM3 (4.50-5.90) Hemoglobin 9.9 GM/DL (13.0-17.0) Hematocrit 32.0 % (39.0-51.0) Mean Corpuscular Volume 72.1 FL (80.0-100.0) Mean Corpuscular Hemoglobin 22.3 PG (27.0-34.0) Mean Corpuscular Hemoglobin 30.9 % Concent (32.0-36.0) Red Cell Distribution Width 19.9 % (11.6-17.2) Sodium Level 134 MEQ/L 133 MEQ/L (136-145) (136-145) Random Glucose 136 MG/DL 132 MG/DL (74-106) (74-106) Creatinine 0.59 MG/DL (0.60-1.30) GENERAL: SKIN: Warm and dry. HEAD: Atraumatic. Normocephalic. EYES: Pupils equal and round. No scleral icterus. No injection or drainage. ENT: No nasal bleeding or discharge. Mucous membranes pink and moist. NECK: Trachea midline. No JVD. TRACH. [place] CARDIOVASCULAR: Regular rate and rhythm. RESPIRATORY: No accessory muscle use. Clear to auscultation. Breath sounds equal bilaterally. GASTROINTESTINAL: Abdomen soft, non-tender, nondistended. Hepatic and splenic margins not palpable. MUSCULOSKELETAL: Extremities without clubbing, cyanosis, or edema. No obvious deformities. NEUROLOGICAL: Awake and alert. No obvious cranial nerve deficits. Motor grossly within normal limits. Five out of 5 muscle strength in the arms and legs. Normal speech. PSYCHIATRIC: Appropriate mood and affect; insight and judgment normal. Assessment and Plan Assessment and Plan impression respiratory failure CVA S/P TRACHEOSTOMY PLAN O2 NEEDED PULM. TOILET Yoder poor Brandon Taylor MD Feb 24, 2017 15:54
[2017-02-24] MEDS: SENNOSIDES SYRUP 8.8 MG/5 ML CUP PEG SCH (16:36)
[2017-02-24] MEDS: PARoxetine HCL SUSP 20 MG/10 ML UDC PEG SCH (17:52)
[2017-02-24] MEDS: CEFEPIME INJ 1,000 MG in SODIUM CHLORIDE 0.9% INJ 100 ML IV SCH (17:52)
[2017-02-25] VITALS (8 sets, daily range): BP systolic 106–133; BP diastolic 62–84; PULSE 84–93; RESP 17–20; TEMP 96.5–97.9; O2SAT 96–100
[2017-02-25] MEDS: CEFEPIME INJ 1,000 MG in SODIUM CHLORIDE 0.9% INJ 100 ML IV SCH ×3 (01:51→16:51)
[2017-02-25] MEDS: HEPARIN SODIUM - SQ 10,000 UNITS/ML VIAL SQ SCH ×2 (05:45→13:23)
[2017-02-25] MEDS: ACETIC ACID 0.25% SOLN 1000 ML IRR BTL IRRIGATION SCH ×3 (05:45→21:36)
[2017-02-25] MEDS: levETIRAcetam 500 MG/5 ML UDC TUBE SCH ×2 (08:27→21:34)
[2017-02-25] MEDS: HYOSCYAMINE 0.125 MG TAB PO SCH (08:27)
[2017-02-25] MEDS: FERROUS SULFATE 300 MG /5ML UDC PO SCH (08:27)
[2017-02-25] MEDS: ARTIFICIAL TEARS OPTH SOLN 15 ML BTL EACH EYE SCH ×2 (08:28→21:36)
[2017-02-25] MEDS: ASCORBIC ACID 500 MG TAB PO SCH (08:28)
[2017-02-25] MEDS: BACITRACIN TOP OINT 15 GM TUBE TOP SCH ×2 (08:28→21:36)
[2017-02-25] MEDS: JUVEN POWDER 1 PACK G-TUBE SCH ×2 (08:28→21:35)
[2017-02-25] MEDS: NYSTATIN 100,000 U/GM PWD 15 GM BTL TOPICAL SCH ×2 (08:28→21:35)
[2017-02-25] MEDS: ASPIRIN 325 MG TAB TUBE SCH (08:28)
[2017-02-25] MEDS: DILTIAZEM HCL 30 MG TAB PEG SCH ×4 (08:28→21:00)
[2017-02-25] MEDS: LANSOPRAZOLE SOLUTAB 30 MG TAB NG SCH ×2 (08:28→21:34)
[2017-02-25] MEDS: BACITRACIN OINT 0.9 GM PKT TOPICAL SCH (08:28)
[2017-02-25] MEDS: SODIUM CHLORIDE 0.65% NASAL SPRAY 45 ML BTL NASAL SCH ×2 (08:28→21:36)
--- NOTE | 2017-02-25 08:40 | HHI.PR ---
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 Patient seen and examined today. Awake and alert. GJ Tube will be replaced today by IR. Reported hematuria started early today, possibly trauma from movement. Patient appears comfortable. Family is concerned about hematuria and abdominal lesion - erythematous, raised. No fevers, chills reported. Objective Vitals Vital Signs Date Time Temp Pulse Resp B/P Pulse Ox O2 Delivery O2 Flow Rate FiO2 02/25/17 08:22 96 T-piece 5.00 28 02/25/17 08:00 97.0 92 20 133/77 99 02/25/17 00:00 97.2 91 17 118/62 99 02/24/17 22:11 99 T-piece 6.00 28 02/24/17 20:00 97.7 87 17 106/67 98 02/24/17 16:00 97.4 89 19 111/70 98 02/24/17 12:49 107/70 02/24/17 11:51 96.9 81 17 117/68 97 02/24/17 08:53 98 T-piece 5.00 28 I/O 02/24/17 02/24/17 02/24/17 02/25/17 02/25/17 02/25/17 06:59 14:59 22:59 06:59 14:59 22:59 Intake Total 0 ml 845 ml 550 ml 240 ml 100 ml Output Total 500 ml 550 ml 850 ml 450 ml Balance -500 ml 295 ml -300 ml -210 ml 100 ml Intake Oral 0 ml 0 ml 0 ml 240 ml 0 ml IV Total 200 ml 100 ml Tube Feeding 350 ml TPN/PPN 845 ml Output Urine Total 500 ml 550 ml 850 ml 450 ml # Bowel Movements 1 0 2 Result Diagram: 02/22/17 1647 02/22/17 1647 Imaging Last Impressions Chest X-Ray 02/22/17 0000 Signed Impressions: Service Date/Time: Wednesday, February 22, 2017 13:12 - CONCLUSION: Minimal atelectasis. Otherwise -1 view chest x-ray. Glen Moore MD Tube Change 02/14/17 0000 Signed Impressions: Service Date/Time: Tuesday, February 14, 2017 00:00 - CONCLUSION: Uncomplicated gastrojejunostomy tube exchange as above. Scott Griffin MD Head CT 01/09/17 0000 Signed Impressions: Service Date/Time: December 17:43 - CONCLUSION: 1. No acute hemorrhage or mass effect. 2. 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 3. Atrophy. Gerald Mukherjee MD CT Angiography 01/09/17 0000 Signed Impressions: Service Date/Time: December 17:49 - CONCLUSION: 1. No evidence of pulmonary emboli. 2. Patchy consolidation in both posterior lower lobes right greater than left. This could represent pneumonia. 3. 2 small noncalcified pulmonary nodules which are nonspecific finding. Short-term CT followup is recommended beginning in 6 months with a noncontrast outpatient CT. Gerald Mukherjee MD Tube Check 12/04/16 0000 Signed Impressions: Service Date/Time: Sunday, December 04, 2016 17:58 - CONCLUSION: Uncomplicated tube injection as above. the tube is in good position and functions normally. Moises Ramírez MD Abdomen X-Ray 08/31/16 0000 Signed Impressions: Service Date/Time: Wednesday, August 31, 2016 16:36 - CONCLUSION: 1. No acute findings. Mild constipation. Durga Dotson MD Abdomen/Pelvis CT 04/12/16 0000 Signed Impressions: Service Date/Time: Tuesday, April 12, 2016 20:52 - CONCLUSION: 1. 6.4 cm necrotic mass or abscess in the soft tissues posteriorly just below the sacrum associated with some bony destructive change of the lower most sacrum and coccyx with inflammatory changes extending into the ischiorectal fossa and into the presacral retroperitoneum predominantly on the left side. There is associated fairly marked mural thickening of the anal verge and rectum. 2. There is gastrostomy and Arevalo catheter present. Stable abdominal aortic aneurysm. Durga Dotson MD Head Magnetic Resonance Angiography 03/05/16 0000 Signed Impressions: Service Date/Time: Saturday, March 05, 2016 09:26 - CONCLUSION: Persistent high-grade subtotal occlusive stenotic lesions in the distal right vertebral artery and proximal basilar artery with significant improvement in flow and recanalization following initial presentation of thrombosis. Stable interstitial circulation without significant stenosis. Ernesto Kulkarni MD Brain MRI 03/05/16 0000 Signed Impressions: Service Date/Time: Saturday, March 05, 2016 09:26 - CONCLUSION: Evolving brainstem and bilateral occipital lobe infarcts with evidence of subacute hemorrhagic products. There is decreasing restricted diffusion and increasing loss of volume characteristic of a subacute to chronic infarct. No evidence of acute infarct, acute hemorrhage mass or edema. Ernesto Kulkarni MD Neck Magnetic Resonance Angiography 12/22/15 1445 Signed Impressions: Service Date/Time: Tuesday, December 22, 2015 09:22 - CONCLUSION: Variant origin of the left vertebral artery from the aortic arch. No evidence of carotid stenosis. Glen Zamora MD Head/Brain Mag Res Venography 12/22/15 0000 Signed Impressions: Service Date/Time: Tuesday, December 22, 2015 09:22 - CONCLUSION: Normal MRV. Jonel Jones Jr., MD Objective Remarks GENERAL: Nonverbal, eyes opening, occasional tracking, in no apparent distress. SKIN: Warm and dry. Right 1st toe lateral aspect of tissue surrounding nail is red and inflamed. HEENT: Normocephalic. Pupils nonicteric. Nose without bleeding. Airway patent. NECK: Trachea midline.T-tube in place, site clean, dry, intact. No JVD. CARDIOVASCULAR: Regular rate and rhythm without murmurs, gallops, or rubs. RESPIRATORY: Rhonchi throughout. Coarse breath sounds. Secretions white moderately thick GASTROINTESTINAL: Abdomen soft, non-tender, nondistended. Bowel Sounds hypoactive. GJ tube in place, below incision site area slight erythema, no drainage noted. MUSCULOSKELETAL: Extremities without clubbing, cyanosis, or edema. NEUROLOGICAL: Awake and alert. Not following commands. Nonverbal. Procedures 07/22/2016 Wide excision of sacral skin wound, biopsy of the cavity lining and debridement. PEG removal and Gj tube placement 07/29/16 VAC changes- M-W-F 10/23/16, 11/18, 12/31- GJ tube replacement 01/02/16 PEG placement 01/02/16 tracheostomy Date of Insertion: Feb 10, 2017 A/P Problem List: (1) CVA (cerebral vascular accident) ICD Code: I63.9 Status: Acute (2) A-fib ICD Code: I48.91 Status: Chronic (3) DM (diabetes mellitus) ICD Code: E11.9 Status: Chronic Assessment and Plan 60 year-old male with past medical history of paroxysmal A. fib, hypertension, stage III non-Hodgkin's lymphoma status post chemotherapy who came into the hospital with altered mental status. 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 Intermittently tracks with eyes. Sister at bedside. - Continue Keppra 500mg BID for seizure prophylaxis. - PT/OT signed off as patient is unable to participate. - On Paxil 20 by mouth daily for depression. - On acetaminophen with codeine for pain scale of 2-10. - No placement available. Appreciate case management assistance. Last CM note indicates continued difficult placement and has medicaid with no accepting facility. Rehab Medicine (Dr. Pickens) following. Chronic respiratory failure secondary to CVA - Status post tracheostomy. Continue pulmonary toilet and bronchodilators as needed. Continue trach care, suctioning. Levsin as needed. - Trach changed to size #6 XLT on 01/09 - Duo nebs every 6 hours - Pulmonary currently following, appreciate assistance. - 01/09 CTA chest: No PE, bilateral lower lobe infiltrates. 4 mm right upper lobe/5 mm right middle lobe nodule. - CXR 02/22/17 reveals minimal atelectasis Right hallux ingrown toenail, paronychia- medial aspect 02/23/17 new area of paronychia right hallux ingrown toe nail lateral aspect - Clinical Data Manager has seen patient. I & D with partial nail avulsion performed at bedside 02/06/17. - Reconsult podiatry pt now with ingrown toenail on lateral aspect right hallux Atrial fibrillation, controlled Hypertension Dyslipidemia - Continue rate control with Cardizem and metoprolol. - Echocardiogram in November 2015 shows preserved ejection fraction. Coumadin discontinued secondary to bleeding. - Continue aspirin and prophylactic heparin dose. History of non-Hodgkin's lymphoma - Status post brain biopsy on December 13 by neurosurgery. Pathology consistent with acute infarct without evidence of lymphoma. Oncology has signed off. Diabetes mellitus Type 2 - Hemoglobin A1c is 5.5. - Fingersticks have been stable and were DC'd 02/01/17 Decubitus ulcer stage IV - Continue wound care, twice-daily dressing changes. Wound care recommendations last updated 12/12/16. Continue pressure relief measures including turning and positioning. Patient's family has declined a diverting colostomy. Previous Wound culture growing Klebsiella and Enterococcus Faecalis. Previously on Augmentin. Status post wide excision of sacral skin and biopsy of the cavity lining with debridement on 07/22/16. - Wound care last saw patient on 01/17/17, no new recommendations continue packing with Betadine moistened rolled Janis and covered with ABD pad and paper tape to secure. - Continue to monitor. Continue pressure-relief. Protein calorie malnutrition Gastroesophageal reflux disease Gastric ulcer, reflux esophagitis Diarrhea, negative for C. difficile. Improved - EGD on 07/30/16 showed gastric ulcers. - On Prevacid 30 mg Q12, on tube feeds(Jevity 1.5 at 55 ml/hr) - Continue bowel regimen with hold parameters, Lactinex and Imodium. - G/J tube clogged, IR consulted to evaluate. Replaced on 02/14/17. - 02/22/17 J tube again clogged- consulted IR to evaluate. - Reiterated proper G/J tube care and flush procedures. Discuss and explained with family. UTI pseudomonas aeruginosa Recurrent - Previous Repeat Ucx 08/28/16 negative. - 02/22/17 UA consistent with UTI - cultures pseudomonas, currently on Rocephin will change to cefepime since last culture was also Pseudomonas and was sensitive to cefepime. - Waiting for sensitivities will change ABX if not sensitive. Klebsiella/Pseudomonas/staph aureus HCAP PSAE UTI - S/p Cefepime. Monitor for signs of infections. - strep pneumonia and Legionella urinary Ag is negative - C-diff PCR negative on 01/13 - 01/09 BC : Staph Epi, Urine cx: Pseudomonas, Sputum cx: Pseudomonas, kleb, Staph. - Patient was pancultured on 01/19 (Blood, sputum, urine) NGTD in urine and blood. Sputum + for pseudomonas. DVT prophylaxis: SCDs. Heparin 5,000 units sq Q8hr. Discussed with pt's family members, nursing, and Dr. Maya Discharge Planning Case management involved with discharge planning. As per case management's note , 02/22/17 Ji long long-term case management and per Ji has spoken with Aylin of [facility] and at that admission to Center with rehabilitation rehabilitation until Friday02/24/17. Will follow-up. Attending Statement The exam, history, and the medical decision-making described in the above note were completed with the assistance of the mid-level provider. I reviewed and agree with the findings presented. I attest that I had a [id number] encounter with the patient on the same day, and personally performed and documented my assessment and findings in the medical record. Family concerned about hematuria. Patient is non verbal on T - piece and sating well. The patient is awake and alert, nonverbal. Patient with headache and no secretions observed. There is bilateral rhonchi on lung examination. Patient has induration and fluctuance noted approximately 4 cm distal to the GJ tube site measuring 2.2 cm 5 cm with erythema. Hematuria with bloody urine noticed on Arevalo bag. Hold aspirin and heparin subcutaneous due to hematuria. Urology consultation. Aspirin and hypertensive potassium may be resumed once hematuria resolved. Check CBC and follow-up hemoglobin. Check coagulation profile. Will obtain soft tissue ultrasound of the abdominal lesion and consult general surgery. sp gastrostomy conversion Patient had been a little toenail on the external side of the great toe. Now has some erythema on the maternal side of the great toe. This could be managed as an outpatient, however the patient is not being discharged in the next few days, will follow up with podiatry. Problem Qualifiers (1) CVA (cerebral vascular accident): (2) DM (diabetes mellitus): Qualified Code: E11.9 - Type 2 diabetes mellitus without complications Kurt Rosa Feb 25, 2017 08:40 Renny Kamara MD Feb 25, 2017 19:49
[2017-02-25] MEDS: ACETAMINOPHEN/CODEINE ELIX 120 MG/12 MG/5 ML CUP G-TUBE PRN (10:25)
--- NOTE | 2017-02-25 10:41 | PD.WCN.NOT ---
Wound Consult Description: Follow up of wound to sacrum with new consult for distal GJ tube insertion site per RHIANNA Alejo Communicated with: Dr Francesco Luther, RN Recommendation: There is no open wound noted to distal GJ tube site. Recommend to leave open to air until further evaluated by imaging/physician. Recommend to continue dressing changes as ordered for sacral wound. Additional Information: Patient seen on for wound evaluation of distal GJ tube insertion site. There is an area of erythema, induration, and fluctuance measuring 2.3cm x 5cm that was left open to air with no drainage or open areas noted, located approximately 4cm distally to GJ tube on patients mid abdomen. Attending physician was notified of this as well as recommendations for abdominal ultrasound/scan vs I&D. Patient was positioned to his left side after placing tube feed on hold. ABD pad and gauze removed from sacrum to reveal a full thickness skin loss area with ~5% visualized bone and ~95% red vascular shiny non granulating tissue, likely muscle. Wound measures 3.1cm x 2cm x 3.3cm with circumferential undermining with deepest measuring 3.9cm @ 9 o'clock. Minimal sanguinous drainage noted when cleansed with wound cleanser and gauze. Wound was lightly and gently packed with Povidone-Iodine moistened rolled gauze, periwound covered in calazime skin protectant, and covered with abd pad secured with tape. Ting Richards [facility] Feb 25, 2017 10:41
--- NOTE | 2017-02-25 14:41 | HHI.GIFU ---
Subjective Remarks Pt has had ongoing issues with malfunctioning/clogged J tube. Tolerating feedings through Gastric port. Going down today to have G/J tube converted to G tube. Objective Vitals I&O Vital Signs Date Time Temp Pulse Resp B/P Pulse Ox O2 Delivery O2 Flow Rate FiO2 02/25/17 12:00 97.9 88 19 106/69 100 02/25/17 08:22 96 T-piece 5.00 28 02/25/17 08:00 97.0 92 20 133/77 99 02/25/17 00:00 97.2 91 17 118/62 99 02/24/17 22:11 99 T-piece 6.00 28 02/24/17 20:00 97.7 87 17 106/67 98 02/24/17 16:00 97.4 89 19 111/70 98 I/O 02/24/17 02/24/17 02/24/17 02/25/17 02/25/17 02/25/17 06:59 14:59 22:59 06:59 14:59 22:59 Intake Total 0 ml 845 ml 550 ml 240 ml 100 ml Output Total 500 ml 550 ml 850 ml 450 ml 800 ml Balance -500 ml 295 ml -300 ml -210 ml -700 ml Intake Oral 0 ml 0 ml 0 ml 240 ml 0 ml IV Total 200 ml 100 ml Tube Feeding 350 ml TPN/PPN 845 ml Output Urine Total 500 ml 550 ml 850 ml 450 ml 800 ml # Bowel Movements 1 0 2 0 Laboratory Date/Time Procedure Status Source Growth 02/22/17 16:43 Urine Culture - Preliminary Resulted Urine Catheterized Urine Pseudomonas Aeruginosa 02/22/17 14:18 Gram Stain - Final Complete Sputum Endotracheal 02/22/17 14:18 Sputum Culture - Final Complete Pseudomonas Aeruginosa Imaging Last Impressions Chest X-Ray 02/22/17 0000 Signed Impressions: Service Date/Time: Wednesday, February 22, 2017 13:12 - CONCLUSION: Minimal atelectasis. Otherwise -1 view chest x-ray. Glen Moore MD Tube Change 02/14/17 0000 Signed Impressions: Service Date/Time: Tuesday, February 14, 2017 00:00 - CONCLUSION: Uncomplicated gastrojejunostomy tube exchange as above. Scott Griffin MD Head CT 01/09/17 0000 Signed Impressions: Service Date/Time: December 17:43 - CONCLUSION: 1. No acute hemorrhage or mass effect. 2. 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 3. Atrophy. Gerald Mukherjee MD CT Angiography 01/09/17 0000 Signed Impressions: Service Date/Time: December 17:49 - CONCLUSION: 1. No evidence of pulmonary emboli. 2. Patchy consolidation in both posterior lower lobes right greater than left. This could represent pneumonia. 3. 2 small noncalcified pulmonary nodules which are nonspecific finding. Short-term CT followup is recommended beginning in 6 months with a noncontrast outpatient CT. Gerald Mukherjee MD Tube Check 12/04/16 0000 Signed Impressions: Service Date/Time: Sunday, December 04, 2016 17:58 - CONCLUSION: Uncomplicated tube injection as above. the tube is in good position and functions normally. Moises Ramírez MD Abdomen X-Ray 08/31/16 0000 Signed Impressions: Service Date/Time: Wednesday, August 31, 2016 16:36 - CONCLUSION: 1. No acute findings. Mild constipation. Durga Dotson MD Abdomen/Pelvis CT 04/12/16 0000 Signed Impressions: Service Date/Time: Tuesday, April 12, 2016 20:52 - CONCLUSION: 1. 6.4 cm necrotic mass or abscess in the soft tissues posteriorly just below the sacrum associated with some bony destructive change of the lower most sacrum and coccyx with inflammatory changes extending into the ischiorectal fossa and into the presacral retroperitoneum predominantly on the left side. There is associated fairly marked mural thickening of the anal verge and rectum. 2. There is gastrostomy and Lopez catheter present. Stable abdominal aortic aneurysm. Durga Dotson MD Head Magnetic Resonance Angiography 03/05/16 0000 Signed Impressions: Service Date/Time: Saturday, March 05, 2016 09:26 - CONCLUSION: Persistent high-grade subtotal occlusive stenotic lesions in the distal right vertebral artery and proximal basilar artery with significant improvement in flow and recanalization following initial presentation of thrombosis. Stable interstitial circulation without significant stenosis. Ernesto Kulkarni MD Brain MRI 03/05/16 0000 Signed Impressions: Service Date/Time: Saturday, March 05, 2016 09:26 - CONCLUSION: Evolving brainstem and bilateral occipital lobe infarcts with evidence of subacute hemorrhagic products. There is decreasing restricted diffusion and increasing loss of volume characteristic of a subacute to chronic infarct. No evidence of acute infarct, acute hemorrhage mass or edema. Ernesto Kulkarni MD Neck Magnetic Resonance Angiography 12/22/15 1445 Signed Impressions: Service Date/Time: Tuesday, December 22, 2015 09:22 - CONCLUSION: Variant origin of the left vertebral artery from the aortic arch. No evidence of carotid stenosis. Glen Zamora MD Head/Brain Mag Res Venography 12/22/15 0000 Signed Impressions: Service Date/Time: Tuesday, December 22, 2015 09:22 - CONCLUSION: Normal MRV. Jonel Jones Jr., MD Physical Exam HEENT: Normocephalic; atraumatic; no jaundice. CHEST: Scattered rhonchi. Tracheostomy-TBar CARDIAC: RRR. ABDOMEN: Soft, round, nondistended, nontender; no hepatosplenomegaly; bowel sounds are present in all four quadrants. GJ tube site clean without redness around the site itself. There is a small area below the tube with some redness/ swelling. EXTREMITIES: Generalized edema. SQUADRON WORKER: Resting with eyes open, does not follow commands Assessment and Plan Plan ASSESSMENT: - Reconsulted for malfunctioning G/J tube with clogged J tube. Pt has G/J tube and has had ongoing issues with malfunctioning tube, frequently becoming clogged and requiring tube exchanges. He is now tolerating TF via G tube. He is going to IR to have G/J tube exchanged to G tube. - Gastric ulcer. EGD (07/30/16)----> Gastric ulcer/Reflux Esophagitis/Residual gastric juices. He has not had repeat EGD. Will schedule repeat EGD to document healing. - Hematuria. Nurse reports that lopez was tugged overnight and he has since had hematuria, per attending - Abdominal area with redness/swelling. Wound care consulted. 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 PLAN: - Plan for repeat EGD in am - Obtain consents - NPO after MN - Hold heparin after MN - Protonix - IR to exchange G/J tube to G tube - Monitor labs - Supportive care - Pt seen and examined by Dr. Riley and myself and this note is written on his behalf Cielo Sorensen Feb 25, 2017 14:41
--- NOTE | 2017-02-25 15:17 | HHI.PR ---
Subjective Remarks ass OPENS EYES NO DISTRESS o2 sat 95% feeding tube replaced Objective Vital Signs Date Time Temp Pulse Resp B/P Pulse Ox O2 Delivery O2 Flow Rate FiO2 02/25/17 12:00 97.9 88 19 106/69 100 02/25/17 08:22 96 T-piece 5.00 28 02/25/17 08:00 97.0 92 20 133/77 99 02/25/17 00:00 97.2 91 17 118/62 99 02/24/17 22:11 99 T-piece 6.00 28 02/24/17 20:00 97.7 87 17 106/67 98 02/24/17 16:00 97.4 89 19 111/70 98 I/O 02/24/17 02/24/17 02/24/17 02/25/17 02/25/17 02/25/17 06:59 14:59 22:59 06:59 14:59 22:59 Intake Total 0 ml 845 ml 550 ml 240 ml 100 ml Output Total 500 ml 550 ml 850 ml 450 ml 800 ml Balance -500 ml 295 ml -300 ml -210 ml -700 ml Intake Oral 0 ml 0 ml 0 ml 240 ml 0 ml IV Total 200 ml 100 ml Tube Feeding 350 ml TPN/PPN 845 ml Output Urine Total 500 ml 550 ml 850 ml 450 ml 800 ml # Bowel Movements 1 0 2 0 Result Diagram: 02/22/17 1647 02/22/17 1647 Procedures 01/02/16 PEG placement 01/02/16 tracheostomy 07/22/2016 Wide excision of sacral skin wound, biopsy of the cavity lining and debridement. PEG tube replacement 07/29/16 Objective Remarks GENERAL: SKIN: Warm and dry. HEAD: Atraumatic. Normocephalic. EYES: Pupils equal and round. No scleral icterus. No injection or drainage. ENT: No nasal bleeding or discharge. Mucous membranes pink and moist. NECK: Trachea midline. No JVD. CARDIOVASCULAR: Regular rate and rhythm. RESPIRATORY: No accessory muscle use. Clear to auscultation. Breath sounds equal bilaterally. GASTROINTESTINAL: Abdomen soft, non-tender, nondistended. Hepatic and splenic margins not palpable. MUSCULOSKELETAL: Extremities without clubbing, cyanosis, or edema. No obvious deformities. NEUROLOGICAL: Awake and alert. No obvious cranial nerve deficits. Motor grossly within normal limits. Five out of 5 muscle strength in the arms and legs. Normal speech. PSYCHIATRIC: Appropriate mood and affect; insight and judgment normal. Laboratory Tests Test 01/05/17 01/06/17 08:35 08:41 Red Blood Count 4.43 MIL/MM3 (4.50-5.90) Hemoglobin 9.9 GM/DL (13.0-17.0) Hematocrit 32.0 % (39.0-51.0) Mean Corpuscular Volume 72.1 FL (80.0-100.0) Mean Corpuscular Hemoglobin 22.3 PG (27.0-34.0) Mean Corpuscular Hemoglobin 30.9 % Concent (32.0-36.0) Red Cell Distribution Width 19.9 % (11.6-17.2) Sodium Level 134 MEQ/L 133 MEQ/L (136-145) (136-145) Random Glucose 136 MG/DL 132 MG/DL (74-106) (74-106) Creatinine 0.59 MG/DL (0.60-1.30) GENERAL: SKIN: Warm and dry. HEAD: Atraumatic. Normocephalic. EYES: Pupils equal and round. No scleral icterus. No injection or drainage. ENT: No nasal bleeding or discharge. Mucous membranes pink and moist. NECK: Trachea midline. No JVD. TRACH. [place] CARDIOVASCULAR: Regular rate and rhythm. RESPIRATORY: No accessory muscle use. Clear to auscultation. Breath sounds equal bilaterally. GASTROINTESTINAL: Abdomen soft, non-tender, nondistended. Hepatic and splenic margins not palpable. MUSCULOSKELETAL: Extremities without clubbing, cyanosis, or edema. No obvious deformities. NEUROLOGICAL: Awake and alert. No obvious cranial nerve deficits. Motor grossly within normal limits. Five out of 5 muscle strength in the arms and legs. Normal speech. PSYCHIATRIC: Appropriate mood and affect; insight and judgment normal. Assessment and Plan Assessment and Plan impression respiratory failure CVA S/P TRACHEOSTOMY PLAN O2 NEEDED PULM. TOILET [place] poor Brandon Taylor MD Feb 25, 2017 15:17
--- NOTE | 2017-02-25 15:49 | PD.RAD ---
Post Procedure Progress Note Pre Procedure Diagnosis: (1) Dysphagia (2) MACHINE PIE MAKER lymphoma Post Procedure Diagnosis: (1) Dysphagia (2) MACHINE PIE MAKER lymphoma Procedure Date: Feb 25, 2017 Supervising Radiologist: Glen Zamora Proceduralist/Assist: RT Minnie(R) Anesthesia: Local Plan of Activity Patient to Unit: Nursing Unit Patient Condition: Fair See PACS Report for procedural detail/treatment Feeding Tube Gastrostomy Conversion Sudanese: 22 Glen Zamora MD Feb 25, 2017 15:49
[2017-02-25] MEDS: SENNOSIDES SYRUP 8.8 MG/5 ML CUP PEG SCH (16:52)
[2017-02-25] MEDS: PARoxetine HCL SUSP 20 MG/10 ML UDC PEG SCH (18:02)
[2017-02-25 20:31] LABS: APTT (PATIENT) 28.7 SEC (24.3-30.1); PROTHROMBIN TIME - PATIENT 11.6 SEC (9.8-11.6)
[2017-02-26] VITALS (7 sets, daily range): BP systolic 94–120; BP diastolic 59–97; PULSE 89–109; RESP 16–20; TEMP 96.8–98.4; O2SAT 96–100
[2017-02-26] MEDS: CEFEPIME INJ 1,000 MG in SODIUM CHLORIDE 0.9% INJ 100 ML IV SCH ×2 (00:23→08:31)
[2017-02-26] MEDS: ACETAMINOPHEN/CODEINE ELIX 120 MG/12 MG/5 ML CUP G-TUBE PRN (00:23)
[2017-02-26 01:49] LABS: HEMATOCRIT 27.8 % (39.0-51.0); MEAN CELL VOLUME 71.7 FL (80.0-100.0); MEAN CORPUSCULAR HEMOGLOBIN 22.8 PG (27.0-34.0); MEAN CORPUSCULAR HGB CONC 31.8 % (32.0-36.0); PLATELET COUNT 208 TH/MM3 (150-450); RED BLOOD COUNT 3.88 MIL/MM3 (4.50-5.90); RED CELL DISTRIBUTION WIDTH 20.4 % (11.6-17.2); REVIEW FLAG FINAL; WHITE BLOOD COUNT 4.3 TH/MM3 (4.0-11.0)
[2017-02-26 01:57] LABS: BICARBONATE 27.2 MEQ/L (21.0-32.0); POTASSIUM 4.1 MEQ/L (3.5-5.1)
[2017-02-26] MEDS: ACETIC ACID 0.25% SOLN 1000 ML IRR BTL IRRIGATION SCH ×3 (06:02→21:06)
[2017-02-26] MEDS: levETIRAcetam 500 MG/5 ML UDC TUBE SCH ×2 (08:31→21:05)
[2017-02-26] MEDS: FERROUS SULFATE 300 MG /5ML UDC PO SCH (08:31)
[2017-02-26] MEDS: LANSOPRAZOLE SOLUTAB 30 MG TAB NG SCH ×2 (08:32→21:04)
[2017-02-26] MEDS: ARTIFICIAL TEARS OPTH SOLN 15 ML BTL EACH EYE SCH ×2 (08:33→21:05)
[2017-02-26] MEDS: JUVEN POWDER 1 PACK G-TUBE SCH ×2 (08:33→21:51)
[2017-02-26] MEDS: SODIUM CHLORIDE 0.65% NASAL SPRAY 45 ML BTL NASAL SCH ×2 (08:38→21:05)
[2017-02-26] MEDS: BACITRACIN TOP OINT 15 GM TUBE TOP SCH ×2 (08:39→21:08)
[2017-02-26] MEDS: ASCORBIC ACID 500 MG TAB PO SCH (08:39)
[2017-02-26] MEDS: DILTIAZEM HCL 30 MG TAB PEG SCH ×4 (09:00→21:00)
[2017-02-26] MEDS: NYSTATIN 100,000 U/GM PWD 15 GM BTL TOPICAL SCH ×2 (09:00→21:06)
[2017-02-26] MEDS: BACITRACIN OINT 0.9 GM PKT TOPICAL SCH (09:00)
--- NOTE | 2017-02-26 09:24 | HHI.PR ---
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 Patient seen today laying in bed. Mother at the bedside. Continues to have hematuria, that his mother is concerned about. She is also concerned about the ingrown toenail. Discuss unexplained at the hematuria has not to do with the EGD procedure to the patient is to have today. Urology saw to be consulted awaiting for visit. Discuss results of labs including H&H. Patient appears comfortable. As per staff, no acute issues overnight, hematuria continues. Objective Vitals Vital Signs Date Time Temp Pulse Resp B/P Pulse Ox O2 Delivery O2 Flow Rate FiO2 02/26/17 08:00 97.8 93 18 109/59 100 02/26/17 07:15 T-Piece 6.00 02/26/17 04:00 97.3 89 18 120/72 97 02/26/17 00:00 98.1 97 20 110/66 98 02/25/17 22:21 98 T-piece 6.00 28 02/25/17 21:35 T-Piece 6.00 Humidified 02/25/17 20:00 96.5 93 20 111/70 99 02/25/17 18:00 91 110/68 02/25/17 16:00 97.4 84 19 128/84 99 02/25/17 12:00 97.9 88 19 106/69 100 I/O 02/25/17 02/25/17 02/25/17 02/26/17 02/26/17 02/26/17 07:00 15:00 23:00 07:00 15:00 23:00 Intake Total 340 ml 620 ml 565 ml 729 ml Output Total 450 ml 800 ml 1100 ml 450 ml Balance -110 ml -180 ml -535 ml 279 ml Intake Oral 240 ml 0 ml IV Total 100 ml 0 ml 100 ml Tube Feeding 440 ml 415 ml 416 ml Tube Irrigant 180 ml 150 ml 213 ml Output Urine Total 450 ml 800 ml 1100 ml 450 ml # Bowel Movements 2 0 Result Diagram: 02/26/17 0117 02/26/17 0117 Imaging Last Impressions Chest X-Ray 02/22/17 0000 Signed Impressions: Service Date/Time: Wednesday, February 22, 2017 13:12 - CONCLUSION: Minimal atelectasis. Otherwise -1 view chest x-ray. Glen Moore MD Tube Change 02/14/17 0000 Signed Impressions: Service Date/Time: Tuesday, February 14, 2017 00:00 - CONCLUSION: Uncomplicated gastrojejunostomy tube exchange as above. Scott Griffin MD Head CT 01/09/17 0000 Signed Impressions: Service Date/Time: December 17:43 - CONCLUSION: 1. No acute hemorrhage or mass effect. 2. 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 3. Atrophy. Gerald Mukherjee MD CT Angiography 01/09/17 0000 Signed Impressions: Service Date/Time: December 17:49 - CONCLUSION: 1. No evidence of pulmonary emboli. 2. Patchy consolidation in both posterior lower lobes right greater than left. This could represent pneumonia. 3. 2 small noncalcified pulmonary nodules which are nonspecific finding. Short-term CT followup is recommended beginning in 6 months with a noncontrast outpatient CT. Gerald Mukherjee MD Tube Check 12/04/16 0000 Signed Impressions: Service Date/Time: Sunday, December 04, 2016 17:58 - CONCLUSION: Uncomplicated tube injection as above. the tube is in good position and functions normally. Moises Ramírez MD Abdomen X-Ray 08/31/16 0000 Signed Impressions: Service Date/Time: Wednesday, August 31, 2016 16:36 - CONCLUSION: 1. No acute findings. Mild constipation. Durga Dotson MD Abdomen/Pelvis CT 04/12/16 0000 Signed Impressions: Service Date/Time: Tuesday, April 12, 2016 20:52 - CONCLUSION: 1. 6.4 cm necrotic mass or abscess in the soft tissues posteriorly just below the sacrum associated with some bony destructive change of the lower most sacrum and coccyx with inflammatory changes extending into the ischiorectal fossa and into the presacral retroperitoneum predominantly on the left side. There is associated fairly marked mural thickening of the anal verge and rectum. 2. There is gastrostomy and Arevalo catheter present. Stable abdominal aortic aneurysm. Durga Dotson MD Head Magnetic Resonance Angiography 03/05/16 0000 Signed Impressions: Service Date/Time: Saturday, March 05, 2016 09:26 - CONCLUSION: Persistent high-grade subtotal occlusive stenotic lesions in the distal right vertebral artery and proximal basilar artery with significant improvement in flow and recanalization following initial presentation of thrombosis. Stable interstitial circulation without significant stenosis. Ernesto Kulkarni MD Brain MRI 03/05/16 0000 Signed Impressions: Service Date/Time: Saturday, March 05, 2016 09:26 - CONCLUSION: Evolving brainstem and bilateral occipital lobe infarcts with evidence of subacute hemorrhagic products. There is decreasing restricted diffusion and increasing loss of volume characteristic of a subacute to chronic infarct. No evidence of acute infarct, acute hemorrhage mass or edema. Ernesto Kulkarni MD Neck Magnetic Resonance Angiography 12/22/15 1445 Signed Impressions: Service Date/Time: Tuesday, December 22, 2015 09:22 - CONCLUSION: Variant origin of the left vertebral artery from the aortic arch. No evidence of carotid stenosis. Glen Zamora MD Head/Brain Mag Res Venography 12/22/15 0000 Signed Impressions: Service Date/Time: Tuesday, December 22, 2015 09:22 - CONCLUSION: Normal MRV. Jonel Jones Jr., MD Objective Remarks GENERAL: Nonverbal, in no apparent distress. SKIN: Warm and dry. Right 1st toe lateral aspect of tissue surrounding nail is red and inflamed. HEENT: Normocephalic. Pupils nonicteric. Nose without bleeding. Airway patent. NECK: Trachea midline.T-tube in place, site clean, dry, intact. No JVD. CARDIOVASCULAR: Regular rate and rhythm without murmurs, gallops, or rubs. RESPIRATORY: Rhonchi throughout. Coarse breath sounds. Secretions white moderately thick GASTROINTESTINAL: Abdomen soft, non-tender, nondistended. Bowel Sounds hypoactive. GJ tube in place, below incision site area slight erythema, no drainage noted. MUSCULOSKELETAL: Extremities without clubbing, cyanosis, or edema. NEUROLOGICAL: Eyes closed. Not following commands. Nonverbal. Procedures 07/22/2016 Wide excision of sacral skin wound, biopsy of the cavity lining and debridement. PEG removal and Gj tube placement 07/29/16 VAC changes- M-W-F 10/23/16, 11/18, 12/31- GJ tube replacement 01/02/16 PEG placement 01/02/16 tracheostomy Date of Insertion: Feb 10, 2017 A/P Problem List: (1) CVA (cerebral vascular accident) ICD Code: I63.9 Status: Acute (2) A-fib ICD Code: I48.91 Status: Chronic (3) DM (diabetes mellitus) ICD Code: E11.9 Status: Chronic Assessment and Plan 60 year-old male with past medical history of paroxysmal A. fib, hypertension, stage III non-Hodgkin's lymphoma status post chemotherapy who came into the hospital with altered mental status. Gross Hematuria - Arevalo change - Hematuria continues continues - Hold Heparin for now - Urology Consult appreciated. - H&H 8.8/27.8 Abdominal wound/ lesion - Below the GJ incision site - Wound Care consulted and recommends leaving open to air, imaging soft tissue ultrasound. - Bacitracin for now - Ultrasound soft tissue surrounding area for possible fluid collection that would need I & D. 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 Intermittently tracks with eyes. Sister at bedside. - Continue Keppra 500mg BID for seizure prophylaxis. - PT/OT signed off as patient is unable to participate. - On Paxil 20 by mouth daily for depression. - On acetaminophen with codeine for pain scale of 2-10. Chronic respiratory failure secondary to CVA - Status post tracheostomy. Continue pulmonary toilet and bronchodilators as needed. Continue trach care, suctioning. Levsin as needed. - Trach changed to size #6 XLT on 01/09 - Duo nebs every 6 hours - Pulmonary currently following, appreciate assistance. - 01/09 CTA chest: No PE, bilateral lower lobe infiltrates. 4 mm right upper lobe/5 mm right middle lobe nodule. - CXR 02/22/17 reveals minimal atelectasis Right hallux ingrown toenail, paronychia- medial aspect 02/23/17 new area of paronychia right hallux ingrown toe nail lateral aspect - Supervisor Pastry has seen patient. I & D with partial nail avulsion performed at bedside 02/06/17. - Reconsult podiatry pt now with ingrown toenail on lateral aspect right hallux. Awaiting to be seen by podiatry. Atrial fibrillation, controlled Hypertension Dyslipidemia - Continue rate control with Cardizem and metoprolol. - Echocardiogram in November 2015 shows preserved ejection fraction. Coumadin discontinued secondary to bleeding. - Continue aspirin and prophylactic heparin dose. History of non-Hodgkin's lymphoma - Status post brain biopsy on December 13 by neurosurgery. Pathology consistent with acute infarct without evidence of lymphoma. Oncology has signed off. Diabetes mellitus Type 2 - Hemoglobin A1c is 5.5. - Fingersticks have been stable and were DC'd 02/01/17 Decubitus ulcer stage IV - Continue wound care, twice-daily dressing changes. Wound care recommendations last updated 12/12/16. Continue pressure relief measures including turning and positioning. Patient's family has declined a diverting colostomy. Previous Wound culture growing Klebsiella and Enterococcus Faecalis. Previously on Augmentin. Status post wide excision of sacral skin and biopsy of the cavity lining with debridement on 07/22/16. - Wound care last saw patient on 01/17/17, no new recommendations continue packing with Betadine moistened rolled Janis and covered with ABD pad and paper tape to secure. - Continue to monitor. Continue pressure-relief. Protein calorie malnutrition Gastroesophageal reflux disease Gastric ulcer, reflux esophagitis Diarrhea, negative for C. difficile. Improved - EGD on 07/30/16 showed gastric ulcers. - On Prevacid 30 mg Q12, on tube feeds(Jevity 1.5 at 55 ml/hr) - Continue bowel regimen with hold parameters, Lactinex and Imodium. - G/J tube clogged, IR consulted to evaluate. Replaced on 02/25/17 - Reiterated proper G/J tube care and flush procedures. Discuss and explained with family. UTI pseudomonas aeruginosa Recurrent - Previous Repeat Ucx 08/28/16 negative. - 02/22/17 UA consistent with UTI - cultures pseudomonas, currently on Rocephin will change to cefepime since last culture was also Pseudomonas and was sensitive to cefepime. - Sensitivities came back, was switched over to Zosyn as cultures are not sensitive to cefepime. Klebsiella/Pseudomonas/staph aureus HCAP PSAE UTI - S/p Cefepime. Monitor for signs of infections. - strep pneumonia and Legionella urinary Ag is negative - C-diff PCR negative on 01/13 - 01/09 BC : Staph Epi, Urine cx: Pseudomonas, Sputum cx: Pseudomonas, kleb, Staph. - Patient was pancultured on 01/19 (Blood, sputum, urine) NGTD in urine and blood. Sputum + for pseudomonas. Patient has a placement for [facility]. Plan for discharge yesterday was canceled secondary to podiatry consult, urology consult for hematuria and repeat EGD today. If urology and GI will clear to patient for discharge to [facility], will discharge and they can follow up with podiatry for ingrown toenail management in the facility. DVT prophylaxis: SCDs. Heparin 5,000 units sq Q8hr. Discussed with pt's family members, nursing, and Dr. Buck Discharge Planning Case management involved with discharge planning. As per case management's note , we'll speak with long-term care case management Ismael. Ismael will need to speak to patient's family had questions and will follow up with [facility] in [facility] as the patient had placement in the said facility. Problem Qualifiers (1) CVA (cerebral vascular accident): (2) DM (diabetes mellitus): Qualified Code: E11.9 - Type 2 diabetes mellitus without complications Kurt Rosa Feb 26, 2017 09:24
--- NOTE | 2017-02-26 10:53 | MB ---
cc: HATTIE CASTRO DATE OF CONSULTATION: 02/24/2017 CHIEF COMPLAINT Right hallux ingrown nail. HISTORY OF PRESENT ILLNESS Mr. Flores is a 61-year-old male patient who was nonverbal, with a feeding tube. His explains to me that he had to have the medial border of the right hallux removed due infected ingrown and she is concerned about redness and drainage around the lateral aspect of the same digit. The patient does not seem to have pain at this time but again is nonverbal. PHYSICAL EXAMINATION On physical exam he does have palpable DP and PT pulses. Cap fill time of less than 3 seconds. Gross sensation is unable to be assessed. Biomechanics are unable to be assessed. There is mild edema to both lower extremities. The right hallux lateral nail border is ingrowing and the surrounding tissue was inflamed with some slight serous drainage. ASSESSMENT/PLAN 1. Right hallux ingrown nail with inflammation. - Will plan to aggressively cut the nail back tomorrow once I can get instrumentation from my office. - No signs of infection at this time but will plan to monitor after tomorrow's procedure. Thank you for this consultation. Hattie HERRING/TLL /7:35 PM /10:42 AM MTDD
[2017-02-26] MEDS: PIPERACIL-TAZO 3.375 GM PREMIX 50 ML IV SCH ×3 (11:00→23:12)
--- NOTE | 2017-02-26 11:23 | RADRPT ---
EXAM DATE/TIME: 02/25/2017 14:19 [facility] COMPARISON: No previous studies available for comparison. INDICATIONS : Patient is in need of a conversion of existing transgastric G-J tube to a G-tube. MEDICAL HISTORY : History of CVA, HTN, DM, AFIB, pneumonia, respiratory failure, non-Hodgkin's lymphoma, dyslipidemia, decubitus sacral ulcer, gastric ulcer, esophagitis. SURGICAL HISTORY : History of multiple G-J tube exchnages, brain biopsy, biopsy and debridement of sacral wound, tracheo stomy. ENCOUNTER: Subsequent ACUITY: > 1 year PAIN SCORE: 0/10 LOCATION: Patient is trached with minimal response. FLUORO TIME: 1.2 minutes IMAGE SERIES: 2 CONTRAST: 25 cc Omnipaque (iohexol) 350 DEVICE(S): 1.) 22 Fr gastrostomy tube PROCEDURE : 1. Fluoroscopically guided gastrostomy tube placement. 2. Conscious sedation with continuous EKG and oximetry monitoring. PROCEDURE: The existing gastroenteric feeding tube was removed intact. The tract was lubricated w ith lidocaine jelly. A new 22 Vietnamese gastrostomy feeding tube was introduced. The retention balloon w as inflated. The collar was appropriately adjusted. Water-soluble contrast was injected and a single view digital radiograph was obtained, this revealing good positioning of the tube with contrast in th e stomach and no evidence of peritoneal leakage of contrast. The patient tolerated the replacement we ll. CONCLUSION: Uncomplicated exchange of gastroenteric feeding tube for gastrostomy tube as above . Positioning confirmed. The tube can be used immediately. Glen Zamora MD on February 26, 2017 at 11:20 Board Certified Radiologist. This report was verified electronically.
--- NOTE | 2017-02-26 15:14 | RADRPT ---
EXAM DATE/TIME: 02/26/2017 12:52 [facility] COMPARISON: GASTROSTOMY TUBE PLACEMENT, February 25, 2017, 14:19. INDICATIONS : Fluid collection in abdomen. MEDICAL HISTORY : Hypercholesterolemia. Hypertension. Cerebrovascular accident. Atrial fibrillation. Diabetes. Dep ression. Anxiety. Carcinoma, lymphoma. MRSA. SURGICAL HISTORY : Circumcision. Left elbow surgery. ENCOUNTER: Initial ACUITY: 4-6 days PAIN SCORE: Nonresponsive. LOCATION: Mid-abdomen. AREA EVALUATED: Midabdominal area below GJ tube. FINDINGS: MASSES: None. FLUID COLLECTIONS: Just inferior to the G-tube on the left side of the abdomen, there is a superficial 3.8 x 2.9 x 0.9 c m complex fluid collection in the subcutaneous tissues. OTHER: Negative. CONCLUSION: 1. Just inferior to the G-tube in the left abdomen, there is a superficial 3.8 x 2.9 0.9 cm complex f luid collection in the subcutaneous tissues. 2. Findings are nonspecific. This could represent a small seroma or abscess. Would consider CT scan o f the abdomen without contrast for further evaluation to determine if there is intraperitoneal extens ion. Bobby Gray MD on February 26, 2017 at 14:01 Board Certified Radiologist. This report was verified electronically.
[2017-02-26] MEDS: SENNOSIDES SYRUP 8.8 MG/5 ML CUP PEG SCH (16:00)
--- NOTE | 2017-02-26 17:39 | PD.CONS ---
[facility] Service Urology Consult Requested By Reason for Consult Gross Hematuria Primary Care Physician Non-Staff Diagnosis: (1) CVA (cerebral vascular accident) ICD Code: I63.9 (2) A-fib ICD Code: I48.91 (3) DM (diabetes mellitus) ICD Code: E11.9 History of Present Illness 61-year-old gentleman status post CVA with respiratory failure who developed new onset gross hematuria. Patient has been managed with indwelling Arevalo catheter over the past several months. It appears that perhaps the catheter got tugged during patient movement prior to development of the hematuria. A CT scan of the abdomen and pelvis from March 2016 fail to demonstrate any significant pathology. At the time of consultation, the patient was nonverbal. He did have indwelling Arevalo catheter draining medium red urine with tiny clots. 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/16 Active Ordered Medications Refer to EMR Family History Unable to elicit Social History Heavy smoker since the age of 14 No history of alcohol or intravenous drug abuse Physical Exam Vital Signs Date Time Temp Pulse Resp B/P Pulse Ox O2 Delivery O2 Flow Rate FiO2 02/26/17 16:00 98.4 109 16 94/97 96 02/26/17 12:47 97.2 100 16 98/67 98 02/26/17 12:11 98 24 107/68 95 02/26/17 11:55 100 24 100/60 95 02/26/17 11:40 98.5 93 24 110/58 99 02/26/17 08:00 97.8 93 18 109/59 100 02/26/17 07:15 T-Piece 6.00 02/26/17 04:00 97.3 89 18 120/72 97 02/26/17 00:00 98.1 97 20 110/66 98 02/25/17 22:21 98 T-piece 6.00 28 02/25/17 21:35 T-Piece 6.00 Humidified 02/25/17 20:00 96.5 93 20 111/70 99 02/25/17 18:00 91 110/68 Physical Exam GENERAL: Lying quietly in bed and in no apparent distress. SKIN: No rashes, ecchymoses or lesions. Cool and dry. HEAD: Atraumatic. Normocephalic. No temporal or scalp tenderness. EYES: Pupils equal round and reactive. Extraocular motions intact. No scleral icterus. No injection or drainage. ENT: Nose without bleeding, purulent drainage or septal hematoma. Throat without erythema, tonsillar hypertrophy or exudate. Uvula midline. Airway patent. NECK: Trachea midline. No JVD or lymphadenopathy. Supple, nontender, no meningeal signs. GASTROINTESTINAL: Abdomen soft, non-tender, nondistended. No hepato-splenomegaly , or palpable masses. No guarding. GENITOURINARY: Bladder not distended. Arevalo in place draining med red urine with tiny clots in the tubing. MUSCULOSKELETAL: Extremities without clubbing, cyanosis, or edema. No joint tenderness, effusion, or edema noted. No calf tenderness. Negative Homans sign bilaterally. NEUROLOGICAL: Nonverbal Laboratory Tests Test 02/25/17 02/26/17 18:53 01:17 Prothrombin Time 11.6 Prothromb Time International 1.0 Ratio Activated Partial 28.7 Thromboplast Time White Blood Count 4.3 Red Blood Count 3.88 Hemoglobin 8.8 Hematocrit 27.8 Mean Corpuscular Volume 71.7 Mean Corpuscular Hemoglobin 22.8 Mean Corpuscular Hemoglobin 31.8 Concent Red Cell Distribution Width 20.4 Platelet Count 208 Mean Platelet Volume 8.7 Sodium Level 134 Potassium Level 4.1 Chloride Level 100 Carbon Dioxide Level 27.2 Anion Gap 7 Blood Urea Nitrogen 19 Creatinine 0.59 Estimat Glomerular Filtration 140 Rate Random Glucose 134 Calcium Level 8.6 Date/Time Procedure Status Source Growth 02/22/17 16:43 Urine Culture - Final Complete Urine Catheterized Urine Pseudomonas Aeruginosa 02/22/17 14:18 Gram Stain - Final Complete Sputum Endotracheal 02/22/17 14:18 Sputum Culture - Final Complete Pseudomonas Aeruginosa Result Diagram: 02/26/17 0117 02/26/17 0117 Imaging Last Impressions Soft Tissue Ultrasound 02/26/17 0000 Signed Impressions: Service Date/Time: Sunday, February 26, 2017 12:52 - CONCLUSION: 1. Just inferior to the G-tube in the left abdomen, there is a superficial 3.8 x 2.9 0.9 cm complex fluid collection in the subcutaneous tissues. 2. Findings are nonspecific. This could represent a small seroma or abscess. Would consider CT scan of the abdomen without contrast for further evaluation to determine if there is intraperitoneal extension. Bobby Gray MD Gastrostomy Tube Placement 02/25/17 0000 Signed Impressions: Service Date/Time: Saturday, February 25, 2017 14:19 - CONCLUSION: Uncomplicated exchange of gastroenteric feeding tube for gastrostomy tube as above. Positioning confirmed. The tube can be used immediately. Glen Zamora MD Chest X-Ray 02/22/17 0000 Signed Impressions: Service Date/Time: Wednesday, February 22, 2017 13:12 - CONCLUSION: Minimal atelectasis. Otherwise -1 view chest x-ray. Glen Moore MD Tube Change 02/14/17 0000 Signed Impressions: Service Date/Time: Tuesday, February 14, 2017 00:00 - CONCLUSION: Uncomplicated gastrojejunostomy tube exchange as above. Scott Griffin MD Head CT 01/09/17 0000 Signed Impressions: Service Date/Time: December 17:43 - CONCLUSION: 1. No acute hemorrhage or mass effect. 2. 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 3. Atrophy. Gerald Mukherjee MD CT Angiography 01/09/17 0000 Signed Impressions: Service Date/Time: December 17:49 - CONCLUSION: 1. No evidence of pulmonary emboli. 2. Patchy consolidation in both posterior lower lobes right greater than left. This could represent pneumonia. 3. 2 small noncalcified pulmonary nodules which are nonspecific finding. Short-term CT followup is recommended beginning in 6 months with a noncontrast outpatient CT. Gerald Mukherjee MD Tube Check 12/04/16 0000 Signed Impressions: Service Date/Time: Sunday, December 04, 2016 17:58 - CONCLUSION: Uncomplicated tube injection as above. the tube is in good position and functions normally. Moises Ramírez MD Abdomen X-Ray 08/31/16 0000 Signed Impressions: Service Date/Time: Wednesday, August 31, 2016 16:36 - CONCLUSION: 1. No acute findings. Mild constipation. Durga Dotson MD Abdomen/Pelvis CT 04/12/16 0000 Signed Impressions: Service Date/Time: Tuesday, April 12, 2016 20:52 - CONCLUSION: 1. 6.4 cm necrotic mass or abscess in the soft tissues posteriorly just below the sacrum associated with some bony destructive change of the lower most sacrum and coccyx with inflammatory changes extending into the ischiorectal fossa and into the presacral retroperitoneum predominantly on the left side. There is associated fairly marked mural thickening of the anal verge and rectum. 2. There is gastrostomy and Arevalo catheter present. Stable abdominal aortic aneurysm. Durga Dotson MD Head Magnetic Resonance Angiography 03/05/16 0000 Signed Impressions: Service Date/Time: Saturday, March 05, 2016 09:26 - CONCLUSION: Persistent high-grade subtotal occlusive stenotic lesions in the distal right vertebral artery and proximal basilar artery with significant improvement in flow and recanalization following initial presentation of thrombosis. Stable interstitial circulation without significant stenosis. Ernesto Kulkarni MD Brain MRI 03/05/16 0000 Signed Impressions: Service Date/Time: Saturday, March 05, 2016 09:26 - CONCLUSION: Evolving brainstem and bilateral occipital lobe infarcts with evidence of subacute hemorrhagic products. There is decreasing restricted diffusion and increasing loss of volume characteristic of a subacute to chronic infarct. No evidence of acute infarct, acute hemorrhage mass or edema. Ernesto Kulkarni MD Neck Magnetic Resonance Angiography 12/22/15 1445 Signed Impressions: Service Date/Time: Tuesday, December 22, 2015 09:22 - CONCLUSION: Variant origin of the left vertebral artery from the aortic arch. No evidence of carotid stenosis. Glen Zamora MD Head/Brain Mag Res Venography 12/22/15 0000 Signed Impressions: Service Date/Time: Tuesday, December 22, 2015 09:22 - CONCLUSION: Normal MRV. Jonel Jones Jr., MD Assessment and Plan Assessment and Plan UROLOGIC IMPRESSION: #1 New onset gross hematuria likely related to Arevalo trauma #2 UTI RECOMMENDATIONS: #1 Con't Arevalo to gravity #2 Irrigate Arevalo prn #3 Agree with antibiotics for UTI Problem Qualifiers (1) CVA (cerebral vascular accident): (2) DM (diabetes mellitus): Qualified Code: E11.9 - Type 2 diabetes mellitus without complications Thomas Sewell MD Feb 26, 2017 17:39
--- NOTE | 2017-02-26 18:17 | PD.POD ---
Subjective Podiatric Problems Right lateral hallux ingrown nail with inflammation and drainage. Patient is non verbal. Past Med/Surg/Social History Past Medical History Cardiovascular: REPORTS HX OF: Atrial fibrillation, Cardiac arrhythmias Cancer/Hematology: REPORTS HX OF: Lymphoma (remission) Past Surgical History HEENT: DENIES HX OF: Cataract extraction, Dental surgery, Laryngectomy, Tonsillectomy, Other head surgery, Other eye surgery, Other ear surgery, Other nasal surgery, Other throat surgery Endocrine: DENIES HX OF: Parathyroidectomy, Thyroid surgery, Other endocrine surgery Respiratory: DENIES HX OF: Bronchoscopy, Lobectomy, Other chest surgery Cardiovascular: DENIES HX OF: Angiogram, Angioplasty, CABG surgery, Carotid endarterectomy, Coronary stent, Heart transplant, Pacemaker, Valve replacement, Other cardiac surgery Gastrointestinal: DENIES HX OF: Appendectomy, Cholecystectomy, Colectomy, subtotal, Colectomy, total, Gastric bypass, Hernia repair, Splenectomy, Other GI surgery Genitourinary: DENIES HX OF: Bladder surgery, Kidney stone extraction, Nephrectomy, Other surgery Genitourinary - male: DENIES HX OF: Prostatectomy, TURP, Vasectomy Musculoskeletal: DENIES HX OF: Joint replacement, Other musculoskeletal srg Integumentary: DENIES HX OF: Skin cancer removal, Other integumentary surg Neurologic: DENIES HX OF: Craniotomy, Spinal surgery, Other neurologic surgery Breast: DENIES HX OF: Breast biopsy, Lumpectomy, Mastectomy, bilateral, Mastectomy, left, Mastectomy, right, Other breast surgery Social History Smoking Status: Current Every Day Smoker Objective Vital Signs Vital Signs Date Time Temp Pulse Resp B/P Pulse Ox O2 Delivery O2 Flow Rate FiO2 02/26/17 18:00 96 T-piece 6.00 28 02/26/17 16:00 98.4 109 16 94/97 96 02/26/17 12:47 97.2 100 16 98/67 98 02/26/17 12:11 98 24 107/68 95 02/26/17 11:55 100 24 100/60 95 02/26/17 11:40 98.5 93 24 110/58 99 02/26/17 08:00 97.8 93 18 109/59 100 02/26/17 07:15 T-Piece 6.00 02/26/17 04:00 97.3 89 18 120/72 97 02/26/17 00:00 98.1 97 20 110/66 98 02/25/17 22:21 98 T-piece 6.00 28 02/25/17 21:35 T-Piece 6.00 Humidified 02/25/17 20:00 96.5 93 20 111/70 99 Coded Allergies: *MDRO Multi-Drug Resistant Organism (Verified Adverse Reaction, Unknown, ) MRSA (sputum) - 03/08/16, 04/03/2016 MDR-Pseudomonas Aeruginosa (urine)-08/25/16 Exam-Podiatry Remarks Unchanged from consultation exam Assessment & Plan A/P 1) Right hallux ingrown nail, non infected -removal of ingrown nail done at bedside -wound care orders left for nursing staff -please call or reconsult podiatry if any questions/concerns Procedures Right hallux lateral nail border sharply avulsed without anesthesia. Area was cleansed before and after the procedure with alcohol. Proper bandaging was applied post procedure. Hattie Hill DPM Feb 26, 2017 18:17
[2017-02-26] MEDS: PARoxetine HCL SUSP 20 MG/10 ML UDC PEG SCH (18:57)
[2017-02-27] VITALS (8 sets, daily range): BP systolic 86–110; BP diastolic 57–71; PULSE 91–106; RESP 16–20; TEMP 96–97.9; O2SAT 92–100
--- NOTE | 2017-02-27 02:48 | RADRPT ---
EXAM DATE/TIME: 02/27/2017 02:24 [facility] COMPARISON: CT ABDOMEN & PELVIS W CONTRAST, April 12, 2016, 20:52. INDICATIONS : Hematuria. Evaluate for abscess. IV CONTRAST: 95 cc Omnipaque 350 (iohexol) IV ORAL CONTRAST: Prescribed oral contrast ingested. RADIATION DOSE: 15.09 CTDIvol (mGy) MEDICAL HISTORY : Cerebrovascular disease. Hypertension. Lymphoma.Diabetes SURGICAL HISTORY : Gastrostomy tube ENCOUNTER: Initial ACUITY: 1 day PAIN SCALE: Non-responsive LOCATION: abdomen TECHNIQUE: Volumetric scanning of the abdomen and pelvis was performed. Using automated exposure control and ad justment of the mA and/or kV according to patient size, radiation dose was kept as low as reasonably achievable to obtain optimal diagnostic quality images. DICOM format image data is available electro nically for review and comparison. FINDINGS: There are atelectatic changes at the lung bases. With the left posterior costophrenic angle a more fo deysi area of nodular soft tissue is seen measuring 2 x 1.6 cm. I believe this represents an area of fo deysi atelectasis rather than a mass. It is not present on the most recent CT examination. There is ordnance handler ecomastia. Coronary artery calcification is noted. There is spleno megaly. Spleen measures 15.6 cm in AP dimension. Pancreas, adrenals, gallbladder, liver, right kidney unremarkable. Left renal cyst sharon suring 1.6 cm at the midpole. There is atherosclerotic plaquing of the aorta and iliac vasculature wi th aneurysmal dilatation of the infrarenal abdominal aorta measuring up to 4.5 x 4 cm in transverse d imension. Fat containing umbilical hernia. There is a large decubitus ulcer identified. There is a ch ronic defect of the lower sacrum identified with patchy sclerosis and the sacral decubitus ulcer exte nds right through the inferior aspect of the sacrum which is destroyed. There is no abscess. Given th e sclerosis at this level, chronic osteomyelitis should be entertained. The urinary bladder contains a Arevalo catheter end is markedly abnormal in appearance. There is an irr egular mixed predominantly high density mass extending posteriorly and superiorly off the right poste rior wall the urinary bladder with surrounding soft tissue stranding in the perivesical fat. On axial image 84 this mass measures 5.4 x 3.5 cm in transverse dimension. This is most concerning for bladde r malignancy with extension through the posterior vesicle wall on the right. There is no hydronephros is or hydroureter. This may be just lateral to the ureterovesical junction. Gastrostomy tube is noted . Of CONCLUSION: 1. Abdominal aortic aneurysm. 2. Bladder mass is noted on the right posteriorly with apparent extravesical extension and clot forma tion. 3. Left renal cyst. 4. Left lower lobe atelectasis. 5. Large sacral decubitus ulcer with bony destruction and sclerosis of the sacrum mid to left lateral portion in the region of S3 and inferiorly which would suggest chronic osteomyelitis in the appropri ate clinical setting. Rajan Granados MD on February 27, 2017 at 2:37 Board Certified Radiologist. This report was verified electronically.
[2017-02-27] MEDS: PIPERACIL-TAZO 3.375 GM PREMIX 50 ML IV SCH ×4 (06:00→23:59)
[2017-02-27] MEDS: ACETIC ACID 0.25% SOLN 1000 ML IRR BTL IRRIGATION SCH ×3 (06:01→20:50)
[2017-02-27] MEDS: LANSOPRAZOLE SOLUTAB 30 MG TAB NG SCH ×2 (07:29→20:38)
[2017-02-27] MEDS: levETIRAcetam 500 MG/5 ML UDC TUBE SCH ×2 (07:29→20:38)
[2017-02-27] MEDS: ASCORBIC ACID 500 MG TAB PO SCH (07:29)
[2017-02-27] MEDS: FERROUS SULFATE 300 MG /5ML UDC PO SCH (07:29)
[2017-02-27] MEDS: BACITRACIN OINT 0.9 GM PKT TOPICAL SCH (07:31)
[2017-02-27] MEDS: NYSTATIN 100,000 U/GM PWD 15 GM BTL TOPICAL SCH ×2 (07:31→20:42)
[2017-02-27] MEDS: ARTIFICIAL TEARS OPTH SOLN 15 ML BTL EACH EYE SCH ×2 (07:31→20:39)
[2017-02-27] MEDS: BACITRACIN TOP OINT 15 GM TUBE TOP SCH ×2 (07:32→20:42)
[2017-02-27] MEDS: DILTIAZEM HCL 30 MG TAB PEG SCH ×4 (07:32→20:39)
[2017-02-27] MEDS: JUVEN POWDER 1 PACK G-TUBE SCH ×2 (07:58→21:00)
[2017-02-27] MEDS: SODIUM CHLORIDE 0.65% NASAL SPRAY 45 ML BTL NASAL SCH ×2 (07:58→20:39)
--- NOTE | 2017-02-27 10:09 | HHI.PR ---
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 Patient seen today laying in bed. Mother at the bedside. Mother continues to be concerned of the hematuria. As per nursing, Dr. Sewell so patient yesterday and has recommended to continue to flush the Arevalo catheter. Discussed with mother abdominal and pelvic CT results including bladder abnormality stent was seen. Discussed that it needs to be evaluated by urologist. Mother is thankful. Patient appears comfortable. Hematuria continues. Objective Vitals Vital Signs Date Time Temp Pulse Resp B/P Pulse Ox O2 Delivery O2 Flow Rate FiO2 02/27/17 08:00 96.4 101 17 108/67 98 02/27/17 07:15 Trach Collar 02/27/17 04:00 97.1 106 20 108/71 100 02/27/17 00:00 96.7 91 18 110/71 92 02/26/17 21:05 T-Piece 6.00 Humidified 02/26/17 20:00 96.8 93 18 102/71 100 02/26/17 18:00 96 T-piece 6.00 28 02/26/17 16:00 98.4 109 16 94/97 96 02/26/17 12:47 97.2 100 16 98/67 98 02/26/17 12:11 98 24 107/68 95 02/26/17 11:55 100 24 100/60 95 02/26/17 11:40 98.5 93 24 110/58 99 I/O 02/26/17 02/26/17 02/26/17 02/27/17 02/27/17 02/27/17 07:00 15:00 23:00 07:00 15:00 23:00 Intake Total 729 ml 0 ml 240 ml 894 ml Output Total 450 ml 575 ml 800 ml 750 ml 20.0 ml Balance 279 ml -575 ml -560 ml 144 ml -20.0 ml Intake Oral 0 ml 240 ml 480 ml IV Total 100 ml 0 ml 100 ml Tube Feeding 416 ml 134 ml Tube Irrigant 213 ml 180 ml Output Urine Total 450 ml 575 ml 800 ml 750 ml Tube Feeding Residual Discard 20.0 ml # Bowel Movements 0 2 3 Result Diagram: 02/26/1711602/26/17116 Imaging Last Impressions Abdomen/Pelvis CT 02/27/17 0000 Signed Impressions: Service Date/Time: February 02:24 - CONCLUSION: 1. Abdominal aortic aneurysm. 2. Bladder mass is noted on the right posteriorly with apparent extravesical extension and clot formation. 3. Left renal cyst. 4. Left lower lobe atelectasis. 5. Large sacral decubitus ulcer with bony destruction and sclerosis of the sacrum mid to left lateral portion in the region of S3 and inferiorly which would suggest chronic osteomyelitis in the appropriate clinical setting. Rajan Granados MD Soft Tissue Ultrasound 02/26/17 0000 Signed Impressions: Service Date/Time: Sunday, February 26, 2017 12:52 - CONCLUSION: 1. Just inferior to the G-tube in the left abdomen, there is a superficial 3.8 x 2.9 0.9 cm complex fluid collection in the subcutaneous tissues. 2. Findings are nonspecific. This could represent a small seroma or abscess. Would consider CT scan of the abdomen without contrast for further evaluation to determine if there is intraperitoneal extension. Bobby Gray MD Gastrostomy Tube Placement 02/25/17 0000 Signed Impressions: Service Date/Time: Saturday, February 25, 2017 14:19 - CONCLUSION: Uncomplicated exchange of gastroenteric feeding tube for gastrostomy tube as above. Positioning confirmed. The tube can be used immediately. Glen Zamora MD Chest X-Ray 02/22/17 0000 Signed Impressions: Service Date/Time: Wednesday, February 22, 2017 13:12 - CONCLUSION: Minimal atelectasis. Otherwise -1 view chest x-ray. Glen Moore MD Tube Change 02/14/17 0000 Signed Impressions: Service Date/Time: Tuesday, February 14, 2017 00:00 - CONCLUSION: Uncomplicated gastrojejunostomy tube exchange as above. Scott Griffin MD Head CT 01/09/17 0000 Signed Impressions: Service Date/Time: December 17:43 - CONCLUSION: 1. No acute hemorrhage or mass effect. 2. 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 3. Atrophy. Gerald Mukherjee MD CT Angiography 01/09/17 0000 Signed Impressions: Service Date/Time: December 17:49 - CONCLUSION: 1. No evidence of pulmonary emboli. 2. Patchy consolidation in both posterior lower lobes right greater than left. This could represent pneumonia. 3. 2 small noncalcified pulmonary nodules which are nonspecific finding. Short-term CT followup is recommended beginning in 6 months with a noncontrast outpatient CT. Gerald Mukherjee MD Tube Check 12/04/16 0000 Signed Impressions: Service Date/Time: Sunday, December 04, 2016 17:58 - CONCLUSION: Uncomplicated tube injection as above. the tube is in good position and functions normally. Moises Ramírez MD Abdomen X-Ray 08/31/16 0000 Signed Impressions: Service Date/Time: Wednesday, August 31, 2016 16:36 - CONCLUSION: 1. No acute findings. Mild constipation. Durga Dotson MD Head Magnetic Resonance Angiography 03/05/16 0000 Signed Impressions: Service Date/Time: Saturday, March 05, 2016 09:26 - CONCLUSION: Persistent high-grade subtotal occlusive stenotic lesions in the distal right vertebral artery and proximal basilar artery with significant improvement in flow and recanalization following initial presentation of thrombosis. Stable interstitial circulation without significant stenosis. Ernesto Kulkarni MD Brain MRI 03/05/16 0000 Signed Impressions: Service Date/Time: Saturday, March 05, 2016 09:26 - CONCLUSION: Evolving brainstem and bilateral occipital lobe infarcts with evidence of subacute hemorrhagic products. There is decreasing restricted diffusion and increasing loss of volume characteristic of a subacute to chronic infarct. No evidence of acute infarct, acute hemorrhage mass or edema. Ernesto Kulkarni MD Neck Magnetic Resonance Angiography 12/22/15 1445 Signed Impressions: Service Date/Time: Tuesday, December 22, 2015 09:22 - CONCLUSION: Variant origin of the left vertebral artery from the aortic arch. No evidence of carotid stenosis. Glen Zamora MD Head/Brain Mag Res Venography 12/22/15 0000 Signed Impressions: Service Date/Time: Tuesday, December 22, 2015 09:22 - CONCLUSION: Normal MRV. Jonel Jones Jr., MD Objective Remarks GENERAL: Nonverbal, in no apparent distress. SKIN: Warm and dry. Right 1st toe lateral aspect of tissue surrounding nail is red and inflamed. HEENT: Normocephalic. Pupils nonicteric. Nose without bleeding. Airway patent. NECK: Trachea midline.T-tube in place, site clean, dry, intact. No JVD. CARDIOVASCULAR: Regular rate and rhythm without murmurs, gallops, or rubs. RESPIRATORY: Rhonchi throughout. Coarse breath sounds. Secretions white moderately thick. GASTROINTESTINAL: Abdomen soft, non-tender, nondistended. Bowel Sounds hypoactive. GJ tube in place, below incision site area slight erythema, no drainage noted. : Arevalo catheter in place, notable gross hematuria MUSCULOSKELETAL: Extremities without clubbing, cyanosis, or edema. NEUROLOGICAL: Eyes opening. Not following commands. Nonverbal. Procedures 07/22/2016 Wide excision of sacral skin wound, biopsy of the cavity lining and debridement. PEG removal and Gj tube placement 07/29/16 VAC changes- M-W-F 10/23/16, 11/18, 12/31- GJ tube replacement 01/02/16 PEG placement 01/02/16 tracheostomy 02/25/17 PEG replacement Date of Insertion: Feb 10, 2017 A/P Problem List: (1) CVA (cerebral vascular accident) ICD Code: I63.9 Status: Acute (2) A-fib ICD Code: I48.91 Status: Chronic (3) DM (diabetes mellitus) ICD Code: E11.9 Status: Chronic Assessment and Plan 60 year-old male with past medical history of paroxysmal A. fib, hypertension, stage III non-Hodgkin's lymphoma status post chemotherapy who came into the hospital with altered mental status. Gross Hematuria - Arevalo change - Hematuria continues - Hold Heparin for now, hold aspirin - Urology Consult appreciated. Recommends flushing Arevalo catheter. - H&H 8.8/27.8. Continue to follow H&H - CT of the abdomen showed bladder mass right posteriorly with apparent extravesical extension and clot formation. To call urology regarding bladder mass. - Nothing by mouth for now for possible procedure from urology. Abdominal wound/ lesion - Below the GJ incision site - Wound Care consulted and recommends leaving open to air, imaging soft tissue ultrasound. - Bacitracin for now - Ultrasound soft tissue surrounding area for possible fluid collection that would need I & D. - Soft tissue ultrasound showed 1. Just inferior to that she tube in the left abdomen, there is a superficial 3.8 x 2.9 0.9 cm complex fluid collection in the subcutaneous tissue. 2. Findings are nonspecific. This could represent a small seroma or abscess. Would consider CT scan of the abdomen with contrast for further evaluation and determine if there is an intraperitoneal extension. - CT of the abdomen showed 1. Abdominal aortic aneurysm. 2. Bladder mass is noted on the right posteriorly with apparent extravesical extension and clot formation. 3. Left renal cyst. 4. Left lower lobe atelectasis. 5. Large sacral decubitus ulcer with bony disruption and sclerosis of the sacrum mid to left lateral portion in the region of S3 and inferiorly which would suggest chronic osteomyelitis in the appropriate clinical setting. - No intraperitoneal extension noted for the wound, will possibly need bedside I&D. Wound consult. 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 Intermittently tracks with eyes. Sister at bedside. - Continue Keppra 500mg BID for seizure prophylaxis. - PT/OT signed off as patient is unable to participate. - On Paxil 20 by mouth daily for depression. - On acetaminophen with codeine for pain scale of 2-10. Chronic respiratory failure secondary to CVA - Status post tracheostomy. Continue pulmonary toilet and bronchodilators as needed. Continue trach care, suctioning. Levsin as needed. - Trach changed to size #6 XLT on 01/09 - Duo nebs every 6 hours - Pulmonary currently following, appreciate assistance. - 01/09 CTA chest: No PE, bilateral lower lobe infiltrates. 4 mm right upper lobe/5 mm right middle lobe nodule. - CXR 02/22/17 reveals minimal atelectasis Right hallux ingrown toenail, paronychia- medial aspect 02/23/17 new area of paronychia right hallux ingrown toe nail lateral aspect - Hardener Helper has seen patient. I & D with partial nail avulsion performed at bedside 02/06/17. - Seen by podiatry. Plan is to aggressively cut the nail back. Atrial fibrillation, controlled Hypertension Dyslipidemia - Continue rate control with Cardizem and metoprolol. - Echocardiogram in November 2015 shows preserved ejection fraction. Coumadin discontinued secondary to bleeding. - Continue aspirin and prophylactic heparin dose. History of non-Hodgkin's lymphoma - Status post brain biopsy on December 13 by neurosurgery. Pathology consistent with acute infarct without evidence of lymphoma. Oncology has signed off. Diabetes mellitus Type 2 - Hemoglobin A1c is 5.5. - Fingersticks have been stable and were DC'd 02/01/17 Decubitus ulcer stage IV - Continue wound care, twice-daily dressing changes. Wound care recommendations last updated 12/12/16. Continue pressure relief measures including turning and positioning. Patient's family has declined a diverting colostomy. Previous Wound culture growing Klebsiella and Enterococcus Faecalis. Previously on Augmentin. Status post wide excision of sacral skin and biopsy of the cavity lining with debridement on 07/22/16. - Wound care last saw patient on 01/17/17, no new recommendations continue packing with Betadine moistened rolled Janis and covered with ABD pad and paper tape to secure. - Continue to monitor. Continue pressure-relief. Protein calorie malnutrition Gastroesophageal reflux disease Gastric ulcer, reflux esophagitis Diarrhea, negative for C. difficile. Improved - EGD on 07/30/16 showed gastric ulcers. - On Prevacid 30 mg Q12, on tube feeds(Jevity 1.5 at 55 ml/hr) - Continue bowel regimen with hold parameters, Lactinex and Imodium. - G/J tube clogged, IR consulted to evaluate. Replaced on 02/25/17 - Reiterated proper G/J tube care and flush procedures. Discuss and explained with family. UTI pseudomonas aeruginosa Recurrent - Previous Repeat Ucx 08/28/16 negative. - 02/22/17 UA consistent with UTI - cultures pseudomonas, currently on Rocephin will change to cefepime since last culture was also Pseudomonas and was sensitive to cefepime. - Sensitivities came back, was switched over to Zosyn as cultures are not sensitive to cefepime. Klebsiella/Pseudomonas/staph aureus HCAP PSAE UTI - S/p Cefepime. Monitor for signs of infections. - strep pneumonia and Legionella urinary Ag is negative - C-diff PCR negative on 01/13 - 01/09 BC : Staph Epi, Urine cx: Pseudomonas, Sputum cx: Pseudomonas, kleb, Staph. - Patient was pancultured on 01/19 (Blood, sputum, urine) NGTD in urine and blood. Sputum + for pseudomonas. Patient has a placement for [facility]. Plan for discharge yesterday was held for now in lieu of ongoing hematuria, urology consult for hematuria. If urology will clear to patient for discharge to [facility], will discharge. DVT prophylaxis: SCDs. Heparin 5,000 units sq Q8hr (Held). Discussed with pt's family members, nursing, and Dr. Buck Discharge Planning Case management involved with discharge planning. As per case management's note , we'll speak with long-term care case management Ismael. Ismael will need to speak to patient's family had questions and will follow up with [facility] in [facility] as the patient had placement in the said facility. The exam, history, and the medical decision-making described in the above note were completed with the assistance of the mid-level provider. I reviewed and agree with the findings presented. I attest that I had a [id number] encounter with the patient on the same day, and personally performed and documented my assessment and findings in the medical record. Pt known to me. Chart reviewed. Dw nursing staff and mother Gross hematuria VS noted Unresponsive CTA RRR abd soft CT with bladder mass Gross hematuria with bladder mass and PSAE UTI. Hold as and anticoagulant, ct Zosyn and f/u recommendations. Problem Qualifiers (1) CVA (cerebral vascular accident): (2) DM (diabetes mellitus): Qualified Code: E11.9 - Type 2 diabetes mellitus without complications Kurt Rosa Feb 27, 2017 10:08 Thomas Buck MD Feb 27, 2017 17:50
[2017-02-27] MEDS: SODIUM CHLOR 0.9% 1000 ML INJ 1,000 ML IV SCH ×2 (10:55→20:42)
[2017-02-27] MEDS: SENNOSIDES SYRUP 8.8 MG/5 ML CUP PEG SCH (15:46)
--- NOTE | 2017-02-27 17:48 | HHI.GIFU ---
Subjective Remarks Resting in bed in no distress. Tolerating TF. Still having hematuria. Objective Vitals I&O Vital Signs Date Time Temp Pulse Resp B/P Pulse Ox O2 Delivery O2 Flow Rate FiO2 02/27/17 17:28 100 T-piece 6.00 28 02/27/17 16:00 97.9 94 16 99/66 100 02/27/17 12:45 97 T-piece 5.00 28 02/27/17 12:00 96.0 96 18 86/57 99 94/63 02/27/17 08:00 96.4 101 17 108/67 98 02/27/17 07:15 Trach Collar 02/27/17 04:00 97.1 106 20 108/71 100 02/27/17 00:00 96.7 91 18 110/71 92 02/26/17 21:05 T-Piece 6.00 Humidified 02/26/17 20:00 96.8 93 18 102/71 100 02/26/17 18:00 96 T-piece 6.00 28 I/O 02/26/17 02/26/17 02/26/17 02/27/17 02/27/17 02/27/17 07:00 15:00 23:00 07:00 15:00 23:00 Intake Total 729 ml 0 ml 240 ml 894 ml 0 ml Output Total 450 ml 575 ml 800 ml 750 ml 1245.0 ml Balance 279 ml -575 ml -560 ml 144 ml -1245.0 ml Intake Oral 0 ml 240 ml 480 ml 0 ml IV Total 100 ml 0 ml 100 ml Tube Feeding 416 ml 134 ml Tube Irrigant 213 ml 180 ml Output Urine Total 450 ml 575 ml 800 ml 750 ml 1225 ml Tube Feeding Residual Discard 20.0 ml # Bowel Movements 0 2 3 1 Imaging Last Impressions Abdomen/Pelvis CT 02/27/17 0000 Signed Impressions: Service Date/Time: February 02:24 - CONCLUSION: 1. Abdominal aortic aneurysm. 2. Bladder mass is noted on the right posteriorly with apparent extravesical extension and clot formation. 3. Left renal cyst. 4. Left lower lobe atelectasis. 5. Large sacral decubitus ulcer with bony destruction and sclerosis of the sacrum mid to left lateral portion in the region of S3 and inferiorly which would suggest chronic osteomyelitis in the appropriate clinical setting. Rajan Granados MD Soft Tissue Ultrasound 02/26/17 0000 Signed Impressions: Service Date/Time: Sunday, February 26, 2017 12:52 - CONCLUSION: 1. Just inferior to the G-tube in the left abdomen, there is a superficial 3.8 x 2.9 0.9 cm complex fluid collection in the subcutaneous tissues. 2. Findings are nonspecific. This could represent a small seroma or abscess. Would consider CT scan of the abdomen without contrast for further evaluation to determine if there is intraperitoneal extension. Bobby Gray MD Gastrostomy Tube Placement 02/25/17 0000 Signed Impressions: Service Date/Time: Saturday, February 25, 2017 14:19 - CONCLUSION: Uncomplicated exchange of gastroenteric feeding tube for gastrostomy tube as above. Positioning confirmed. The tube can be used immediately. Glen Zamora MD Chest X-Ray 02/22/17 0000 Signed Impressions: Service Date/Time: Wednesday, February 22, 2017 13:12 - CONCLUSION: Minimal atelectasis. Otherwise -1 view chest x-ray. Glen Moore MD Tube Change 02/14/17 0000 Signed Impressions: Service Date/Time: Tuesday, February 14, 2017 00:00 - CONCLUSION: Uncomplicated gastrojejunostomy tube exchange as above. Scott Griffin MD Head CT 01/09/17 0000 Signed Impressions: Service Date/Time: December 17:43 - CONCLUSION: 1. No acute hemorrhage or mass effect. 2. 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 3. Atrophy. Gerald Mukherjee MD CT Angiography 01/09/17 0000 Signed Impressions: Service Date/Time: December 17:49 - CONCLUSION: 1. No evidence of pulmonary emboli. 2. Patchy consolidation in both posterior lower lobes right greater than left. This could represent pneumonia. 3. 2 small noncalcified pulmonary nodules which are nonspecific finding. Short-term CT followup is recommended beginning in 6 months with a noncontrast outpatient CT. Gerald Mukherjee MD Tube Check 12/04/16 0000 Signed Impressions: Service Date/Time: Sunday, December 04, 2016 17:58 - CONCLUSION: Uncomplicated tube injection as above. the tube is in good position and functions normally. Moises Ramírez MD Abdomen X-Ray 08/31/16 0000 Signed Impressions: Service Date/Time: Wednesday, August 31, 2016 16:36 - CONCLUSION: 1. No acute findings. Mild constipation. Durga Dotson MD Head Magnetic Resonance Angiography 03/05/16 0000 Signed Impressions: Service Date/Time: Saturday, March 05, 2016 09:26 - CONCLUSION: Persistent high-grade subtotal occlusive stenotic lesions in the distal right vertebral artery and proximal basilar artery with significant improvement in flow and recanalization following initial presentation of thrombosis. Stable interstitial circulation without significant stenosis. Ernesto Kulkarni MD Brain MRI 03/05/16 0000 Signed Impressions: Service Date/Time: Saturday, March 05, 2016 09:26 - CONCLUSION: Evolving brainstem and bilateral occipital lobe infarcts with evidence of subacute hemorrhagic products. There is decreasing restricted diffusion and increasing loss of volume characteristic of a subacute to chronic infarct. No evidence of acute infarct, acute hemorrhage mass or edema. Ernesto Kulkarni MD Neck Magnetic Resonance Angiography 12/22/15 1445 Signed Impressions: Service Date/Time: Tuesday, December 22, 2015 09:22 - CONCLUSION: Variant origin of the left vertebral artery from the aortic arch. No evidence of carotid stenosis. Glen Zamora MD Head/Brain Mag Res Venography 12/22/15 0000 Signed Impressions: Service Date/Time: Tuesday, December 22, 2015 09:22 - CONCLUSION: Normal MRV. Jonel Jones Jr., MD Physical Exam HEENT: Normocephalic; atraumatic; no jaundice. CHEST: Scattered rhonchi. Tracheostomy-TBar CARDIAC: RRR. ABDOMEN: Soft, round, nondistended, nontender; no hepatosplenomegaly; bowel sounds are present in all four quadrants. GJ tube site clean without redness around the site itself. EXTREMITIES: Generalized edema. DIGITAL ACCOUNT MANAGER: Resting with eyes open, does not follow commands Assessment and Plan Plan ASSESSMENT: - Reconsulted for malfunctioning G/J tube with clogged J tube. Pt has G/J tube and has had ongoing issues with malfunctioning tube, frequently becoming clogged and requiring tube exchanges. S/P converstion of G/J tube exchanged to G tube. Site without redness or swelling. - Gastric ulcer. EGD (07/30/16)----> Gastric ulcer/Reflux Esophagitis/Residual gastric juices. He has not had repeat EGD. S/P Rpt. EGD (02/26/17)----> normal upper endoscopy. G tube in place. 8.8.8. - Hematuria. Abdomen/Pelvis CT (02/27/17)-----> 1. Abdominal aortic aneurysm. 2. Bladder mass is noted on the right posteriorly with apparent extravesical extension and clot formation. 3. Left renal cyst. 4. Left lower lobe atelectasis. 5. Large sacral decubitus ulcer with bony destruction and sclerosis of the sacrum mid to left lateral portion in the region of S3 and inferiorly which would suggest chronic osteomyelitis in the appropriate clinical setting. Soft Tissue Ultrasound (02/26)----> 1. Just inferior to the G-tube in the left abdomen, there is a superficial 3.8 x 2.9 0.9 cm complex fluid collection in the subcutaneous tissues. 2. Findings are nonspecific. This could represent a small seroma or abscess. Would consider CT scan of the abdomen without contrast for further evaluation to determine if there is intraperitoneal extension. consulted. - Abdominal area with redness/swelling. Wound care consulted. 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 PLAN: - TF as tolerated - Protonix - GI will sign off, please reconsult as needed - Pt seen and examined by Dr. Riley and myself and this note is written on his behalf Cielo Sorensen Feb 27, 2017 17:48
[2017-02-27] MEDS: PARoxetine HCL SUSP 20 MG/10 ML UDC PEG SCH (18:47)
[2017-02-28] VITALS (9 sets, daily range): BP systolic 93–136; BP diastolic 59–71; PULSE 18–113; RESP 16–20; TEMP 95.7–99; O2SAT 96–100
[2017-02-28] MEDS: SODIUM CHLOR 0.9% 1000 ML INJ 1,000 ML IV SCH (00:07)
[2017-02-28] MEDS: ACETIC ACID 0.25% SOLN 1000 ML IRR BTL IRRIGATION SCH ×3 (04:57→22:05)
[2017-02-28] MEDS: PIPERACIL-TAZO 3.375 GM PREMIX 50 ML IV SCH ×4 (04:57→22:04)
[2017-02-28 07:12] LABS: HEMATOCRIT 24.3 % (39.0-51.0); MEAN CELL VOLUME 73.3 FL (80.0-100.0); MEAN CORPUSCULAR HEMOGLOBIN 22.4 PG (27.0-34.0); MEAN CORPUSCULAR HGB CONC 30.5 % (32.0-36.0); PLATELET COUNT 197 TH/MM3 (150-450); RED BLOOD COUNT 3.31 MIL/MM3 (4.50-5.90); RED CELL DISTRIBUTION WIDTH 19.9 % (11.6-17.2); REVIEW FLAG FINAL; WHITE BLOOD COUNT 6.3 TH/MM3 (4.0-11.0)
[2017-02-28] MEDS: BACITRACIN TOP OINT 15 GM TUBE TOP SCH ×2 (09:00→22:04)
[2017-02-28] MEDS: SODIUM CHLORIDE 0.65% NASAL SPRAY 45 ML BTL NASAL SCH ×2 (09:00→22:02)
[2017-02-28] MEDS: JUVEN POWDER 1 PACK G-TUBE SCH ×2 (09:00→21:00)
[2017-02-28] MEDS: NYSTATIN 100,000 U/GM PWD 15 GM BTL TOPICAL SCH ×2 (09:00→21:00)
[2017-02-28] MEDS: BACITRACIN OINT 0.9 GM PKT TOPICAL SCH (09:00)
--- NOTE | 2017-02-28 09:32 | HHI.PR ---
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 Patient seen today. Patient is awake and alert, occasional traffic, does not follow any commands, nonverbal. Mother at the bedside. She states that we should not talk about the bladder mass found to the patient. She is taking hold everything is being she wants everything to be done for the patient. States she keeps praying for kareen and ask if I could also pray for the patient. Patient continues to have hematuria. Facial grimacing noted. Objective Vitals Vital Signs Date Time Temp Pulse Resp B/P Pulse Ox O2 Delivery O2 Flow Rate FiO2 02/28/17 08:00 95.7 103 17 110/70 99 02/28/17 07:35 18 02/28/17 04:00 99.0 113 20 113/65 100 02/28/17 00:00 97.7 112 20 136/71 100 02/27/17 20:00 97.5 100 20 106/64 100 02/27/17 17:28 100 T-piece 6.00 28 02/27/17 16:00 97.9 94 16 99/66 100 02/27/17 12:45 97 T-piece 5.00 28 02/27/17 12:00 96.0 96 18 86/57 99 94/63 I/O 02/27/17 02/27/17 02/27/17 02/28/17 02/28/17 02/28/17 06:59 14:59 22:59 06:59 14:59 22:59 Intake Total 894 ml 0 ml 2337 ml Output Total 750 ml 1245.0 ml 0 ml 1500 ml Balance 144 ml -1245.0 ml 0 ml 837 ml Intake Oral 480 ml 0 ml IV Total 100 ml 1387 ml Tube Feeding 134 ml 650 ml Tube Irrigant 180 ml 300 ml Output Urine Total 750 ml 1225 ml 1500 ml Tube Feeding Residual Discard 20.0 ml 0 ml # Bowel Movements 3 1 3 Result Diagram: 02/28/17 0616 02/26/17 0117 Imaging Last Impressions Abdomen/Pelvis CT 02/27/17 0000 Signed Impressions: Service Date/Time: February 02:24 - CONCLUSION: 1. Abdominal aortic aneurysm. 2. Bladder mass is noted on the right posteriorly with apparent extravesical extension and clot formation. 3. Left renal cyst. 4. Left lower lobe atelectasis. 5. Large sacral decubitus ulcer with bony destruction and sclerosis of the sacrum mid to left lateral portion in the region of S3 and inferiorly which would suggest chronic osteomyelitis in the appropriate clinical setting. Rajan Granados MD Soft Tissue Ultrasound 02/26/17 0000 Signed Impressions: Service Date/Time: Sunday, February 26, 2017 12:52 - CONCLUSION: 1. Just inferior to the G-tube in the left abdomen, there is a superficial 3.8 x 2.9 0.9 cm complex fluid collection in the subcutaneous tissues. 2. Findings are nonspecific. This could represent a small seroma or abscess. Would consider CT scan of the abdomen without contrast for further evaluation to determine if there is intraperitoneal extension. Bobby Gray MD Gastrostomy Tube Placement 02/25/17 0000 Signed Impressions: Service Date/Time: Saturday, February 25, 2017 14:19 - CONCLUSION: Uncomplicated exchange of gastroenteric feeding tube for gastrostomy tube as above. Positioning confirmed. The tube can be used immediately. Glen Zamora MD Chest X-Ray 02/22/17 0000 Signed Impressions: Service Date/Time: Wednesday, February 22, 2017 13:12 - CONCLUSION: Minimal atelectasis. Otherwise -1 view chest x-ray. Glen Moore MD Tube Change 02/14/17 0000 Signed Impressions: Service Date/Time: Tuesday, February 14, 2017 00:00 - CONCLUSION: Uncomplicated gastrojejunostomy tube exchange as above. Scott Griffin MD Head CT 01/09/17 0000 Signed Impressions: Service Date/Time: December 17:43 - CONCLUSION: 1. No acute hemorrhage or mass effect. 2. 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 3. Atrophy. Gerald Mukherjee MD CT Angiography 01/09/17 0000 Signed Impressions: Service Date/Time: December 17:49 - CONCLUSION: 1. No evidence of pulmonary emboli. 2. Patchy consolidation in both posterior lower lobes right greater than left. This could represent pneumonia. 3. 2 small noncalcified pulmonary nodules which are nonspecific finding. Short-term CT followup is recommended beginning in 6 months with a noncontrast outpatient CT. Gerald Mukherjee MD Tube Check 12/04/16 0000 Signed Impressions: Service Date/Time: Sunday, December 04, 2016 17:58 - CONCLUSION: Uncomplicated tube injection as above. the tube is in good position and functions normally. Moises Ramírez MD Abdomen X-Ray 08/31/16 0000 Signed Impressions: Service Date/Time: Wednesday, August 31, 2016 16:36 - CONCLUSION: 1. No acute findings. Mild constipation. Durga Dotson MD Head Magnetic Resonance Angiography 03/05/16 0000 Signed Impressions: Service Date/Time: Saturday, March 05, 2016 09:26 - CONCLUSION: Persistent high-grade subtotal occlusive stenotic lesions in the distal right vertebral artery and proximal basilar artery with significant improvement in flow and recanalization following initial presentation of thrombosis. Stable interstitial circulation without significant stenosis. Ernesto Kulkarni MD Brain MRI 03/05/16 0000 Signed Impressions: Service Date/Time: Saturday, March 05, 2016 09:26 - CONCLUSION: Evolving brainstem and bilateral occipital lobe infarcts with evidence of subacute hemorrhagic products. There is decreasing restricted diffusion and increasing loss of volume characteristic of a subacute to chronic infarct. No evidence of acute infarct, acute hemorrhage mass or edema. Ernesto Kulkarni MD Neck Magnetic Resonance Angiography 12/22/15 1445 Signed Impressions: Service Date/Time: Tuesday, December 22, 2015 09:22 - CONCLUSION: Variant origin of the left vertebral artery from the aortic arch. No evidence of carotid stenosis. Glen Zamora MD Head/Brain Mag Res Venography 12/22/15 0000 Signed Impressions: Service Date/Time: Tuesday, December 22, 2015 09:22 - CONCLUSION: Normal MRV. Jonel Jones Jr., MD Objective Remarks GENERAL: Nonverbal, in no apparent distress. SKIN: Warm and dry. Right 1st toe lateral aspect of tissue surrounding nail is red and inflamed. HEENT: Normocephalic. Pupils nonicteric. Nose without bleeding. Airway patent. NECK: Trachea midline.T-tube in place, site clean, dry, intact. No JVD. CARDIOVASCULAR: Regular rate and rhythm without murmurs, gallops, or rubs. RESPIRATORY: Rhonchi throughout. Coarse breath sounds. Secretions white moderately thick. GASTROINTESTINAL: Abdomen soft, non-tender, nondistended. Bowel Sounds hypoactive. GJ tube in place, below incision site area slight erythema, no drainage noted. : Arevalo catheter in place, notable gross hematuria MUSCULOSKELETAL: Extremities without clubbing, cyanosis, or edema. NEUROLOGICAL: Eyes opening. Not following commands. Nonverbal. Procedures 07/22/2016 Wide excision of sacral skin wound, biopsy of the cavity lining and debridement. PEG removal and Gj tube placement 07/29/16 VAC changes- M-W-F 10/23/16, 11/18, 12/31- GJ tube replacement 01/02/16 PEG placement 01/02/16 tracheostomy 02/25/17 PEG replacement Date of Insertion: Feb 10, 2017 A/P Problem List: (1) CVA (cerebral vascular accident) ICD Code: I63.9 Status: Acute (2) A-fib ICD Code: I48.91 Status: Chronic (3) DM (diabetes mellitus) ICD Code: E11.9 Status: Chronic Assessment and Plan 60 year-old male with past medical history of paroxysmal A. fib, hypertension, stage III non-Hodgkin's lymphoma status post chemotherapy who came into the hospital with altered mental status. Gross Hematuria - Arevalo change - Hematuria continues - Hold Heparin for now, hold aspirin - Urology Consult appreciated. Recommends flushing Arevalo catheter. - H&H 8.8/27.8. Continue to follow H&H - CT of the abdomen showed bladder mass right posteriorly with apparent extravesical extension and clot formation. To call urology regarding bladder mass. - Awaiting for urology conditions. As per nursing, urology spoke with family member, daughter, states that she's not recommending biopsy of the bladder mass. However daughter insisted on biopsy. - As per mother, she wants everything done for him. - H&H dropped to 7.4/24.3. Transfuse 1 unit packed RBCs. Repeat CBC dhaval Abdominal wound/ lesion - Below the GJ incision site - Wound Care consulted and recommends leaving open to air, imaging soft tissue ultrasound. - Bacitracin for now - Ultrasound soft tissue surrounding area for possible fluid collection that would need I & D. - Soft tissue ultrasound showed 1. Just inferior to that she tube in the left abdomen, there is a superficial 3.8 x 2.9 0.9 cm complex fluid collection in the subcutaneous tissue. 2. Findings are nonspecific. This could represent a small seroma or abscess. Would consider CT scan of the abdomen with contrast for further evaluation and determine if there is an intraperitoneal extension. - CT of the abdomen showed 1. Abdominal aortic aneurysm. 2. Bladder mass is noted on the right posteriorly with apparent extravesical extension and clot formation. 3. Left renal cyst. 4. Left lower lobe atelectasis. 5. Large sacral decubitus ulcer with bony disruption and sclerosis of the sacrum mid to left lateral portion in the region of S3 and inferiorly which would suggest chronic osteomyelitis in the appropriate clinical setting. - No intraperitoneal extension noted for the wound, will possibly need bedside I&D. Wound consult. 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 Intermittently tracks with eyes. Sister at bedside. - Continue Keppra 500mg BID for seizure prophylaxis. - PT/OT signed off as patient is unable to participate. - On Paxil 20 by mouth daily for depression. - On acetaminophen with codeine for pain scale of 2-10. Chronic respiratory failure secondary to CVA - Status post tracheostomy. Continue pulmonary toilet and bronchodilators as needed. Continue trach care, suctioning. Levsin as needed. - Trach changed to size #6 XLT on 01/09 - Duo nebs every 6 hours - Pulmonary currently following, appreciate assistance. - 01/09 CTA chest: No PE, bilateral lower lobe infiltrates. 4 mm right upper lobe/5 mm right middle lobe nodule. - CXR 02/22/17 reveals minimal atelectasis Right hallux ingrown toenail, paronychia- medial aspect 02/23/17 new area of paronychia right hallux ingrown toe nail lateral aspect - Telecommunications Field Engineer has seen patient. I & D with partial nail avulsion performed at bedside 02/06/17. - Seen by podiatry. Plan is to aggressively cut the nail back. Atrial fibrillation, controlled Hypertension Dyslipidemia - Continue rate control with Cardizem and metoprolol. - Echocardiogram in November 2015 shows preserved ejection fraction. Coumadin discontinued secondary to bleeding. - Continue aspirin and prophylactic heparin dose. History of non-Hodgkin's lymphoma - Status post brain biopsy on December 13 by neurosurgery. Pathology consistent with acute infarct without evidence of lymphoma. Oncology has signed off. Diabetes mellitus Type 2 - Hemoglobin A1c is 5.5. - Fingersticks have been stable and were DC'd 02/01/17 Decubitus ulcer stage IV - Continue wound care, twice-daily dressing changes. Wound care recommendations last updated 12/12/16. Continue pressure relief measures including turning and positioning. Patient's family has declined a diverting colostomy. Previous Wound culture growing Klebsiella and Enterococcus Faecalis. Previously on Augmentin. Status post wide excision of sacral skin and biopsy of the cavity lining with debridement on 07/22/16. - Wound care last saw patient on 01/17/17, no new recommendations continue packing with Betadine moistened rolled Janis and covered with ABD pad and paper tape to secure. - Continue to monitor. Continue pressure-relief. Protein calorie malnutrition Gastroesophageal reflux disease Gastric ulcer, reflux esophagitis Diarrhea, negative for C. difficile. Improved - EGD on 07/30/16 showed gastric ulcers. - On Prevacid 30 mg Q12, on tube feeds(Jevity 1.5 at 55 ml/hr) - Continue bowel regimen with hold parameters, Lactinex and Imodium. - G/J tube clogged, IR consulted to evaluate. Replaced on 02/25/17 - Reiterated proper G/J tube care and flush procedures. Discuss and explained with family. UTI pseudomonas aeruginosa Recurrent - Previous Repeat Ucx 08/28/16 negative. - 02/22/17 UA consistent with UTI - cultures pseudomonas, currently on Rocephin will change to cefepime since last culture was also Pseudomonas and was sensitive to cefepime. - Sensitivities came back, was switched over to Zosyn as cultures are not sensitive to cefepime. Klebsiella/Pseudomonas/staph aureus HCAP PSAE UTI - S/p Cefepime. Monitor for signs of infections. - strep pneumonia and Legionella urinary Ag is negative - C-diff PCR negative on 01/13 - 01/09 BC : Staph Epi, Urine cx: Pseudomonas, Sputum cx: Pseudomonas, kleb, Staph. - Patient was pancultured on 01/19 (Blood, sputum, urine) NGTD in urine and blood. Sputum + for pseudomonas. Patient has a placement for [facility]. Plan for discharge yesterday was held for now in lieu of ongoing hematuria, urology consult for hematuria. If urology will clear to patient for discharge to [facility], will discharge. DVT prophylaxis: SCDs. Heparin 5,000 units sq Q8hr (Held). Discussed with pt's family members, nursing, and Dr. Buck Discharge Planning Case management involved with discharge planning. As per case management's note , we'll speak with long-term care case management Ismael. Ismael will need to speak to patient's family had questions and will follow up with [facility] in [facility] as the patient had placement in the said facility. Problem Qualifiers (1) CVA (cerebral vascular accident): (2) DM (diabetes mellitus): Qualified Code: E11.9 - Type 2 diabetes mellitus without complications Kurt Rosa Feb 28, 2017 09:31
[2017-02-28] MEDS: ARTIFICIAL TEARS OPTH SOLN 15 ML BTL EACH EYE SCH ×2 (09:48→22:02)
[2017-02-28] MEDS: ASCORBIC ACID 500 MG TAB PO SCH (09:50)
[2017-02-28] MEDS: DILTIAZEM HCL 30 MG TAB PEG SCH ×4 (09:51→21:00)
[2017-02-28] MEDS: LANSOPRAZOLE SOLUTAB 30 MG TAB NG SCH ×2 (09:51→22:02)
[2017-02-28] MEDS: FERROUS SULFATE 300 MG /5ML UDC PO SCH (09:53)
[2017-02-28] MEDS: levETIRAcetam 500 MG/5 ML UDC TUBE SCH ×2 (09:53→22:01)
[2017-02-28] MEDS: ACETAMINOPHEN/CODEINE ELIX 120 MG/12 MG/5 ML CUP G-TUBE PRN (11:38)
--- NOTE | 2017-02-28 14:19 | HHI.PR ---
Subjective Patient symptoms today Nonverbal Objective Vital Signs Vital Signs Date Time Temp Pulse Resp B/P Pulse Ox O2 Delivery O2 Flow Rate FiO2 02/28/17 12:00 96.9 101 16 100/60 98 02/28/17 08:00 95.7 103 17 110/70 99 02/28/17 07:35 18 02/28/17 04:00 99.0 113 20 113/65 100 02/28/17 00:00 97.7 112 20 136/71 100 02/27/17 20:00 97.5 100 20 106/64 100 02/27/17 17:28 100 T-piece 6.00 28 02/27/17 16:00 97.9 94 16 99/66 100 Result Diagram: 02/28/17 0616 02/26/17 [address] scan performed yesterday that demonstrated a large irregular high density bladder mass extending posteriorly and superiorly off the right bladder wall that measures greater than 5 cm in transverse dimension. The mass extends through the posterior wall on the right and is consistent with non- operable bladder cancer. There is no evidence of hydronephrosis. This is a new finding when compared to a prior CT scanned performed in March 2016. Objective Remarks Arevalo catheter continues to drain dark bloody urine. Bladder not distended Medications and IVs Current Medications Medications (Trade) Dose Ordered Sig/Junior Route Start Time Stop Time Status Last Admin (NS Flush) 2 ml UNSCH PRN IVF 12/21/15 06:00 09/28/16 21:18 (Keppra Liq) 500 mg Q12HR TUBE 12/27/15 21:00 02/28/17 09:53 (Tylenol 650 Mg/ 20 ml Liq) 650 mg Q6H PRN TUBE 12/30/15 15:15 01/18/17 21:34 (Mycostatin Powder) 1 applic Q12HR TOPICAL 01/08/16 21:00 02/28/17 09:00 (Pill Splitter) 1 ea UNSCH PRN OTHER 01/14/16 08:30 (Acetic Acid 0.25% Irr Btl) 10 ml Q8HR IRRIGATION 02/05/16 16:00 02/28/17 04:57 (Paxil Liq) 20 mg DAILY@1900 PEG 03/12/16 19:00 02/27/17 18:47 (Levsin) 0.25 mg Q4H PRN G-TUBE 04/11/16 10:30 02/22/17 13:39 (Zofran Inj) 4 mg Q6HR PRN IV PUSH 04/14/16 19:45 08/10/16 10:16 (Aspirin) 325 mg DAILY TUBE 05/27/16 11:40 Hold 02/25/17 08:28 (Heparin Inj) 5,000 units Q8HR SQ 06/11/16 14:00 Hold 02/25/17 13:23 (Baciguent Oint) 1 applic BID TOP 07/20/16 10:00 02/28/17 09:00 (Blair Angel Hobbs) 1 spray BID NASAL 08/01/16 21:00 02/28/17 09:00 (Tears Naturale Opth Soln) 1 drop BID EACH EYE 09/05/16 21:00 02/28/17 09:48 (Morphine Inj) 1 mg Q24H PRN IV PUSH 09/17/16 14:30 10/22/16 02:00 (Dulcolax Supp) 10 mg DAILY PRN RECTAL 09/26/16 15:30 12/08/16 09:17 (Tylenol - Codeine 120-12 Liq) 5 ml Q4H PRN G-TUBE 12/27/16 15:30 02/28/17 11:38 (Imodium Liq) 2 mg Q6H PRN PEG 12/27/16 15:30 01/24/17 20:05 (Milk Of Magnesia Liq) 30 ml DAILY PRN PEG 12/27/16 15:30 02/11/17 08:46 (Milk Of Magnesia Liq) 30 ml DAILY PEG 12/28/16 09:00 Hold 01/19/17 08:44 (Senna Liq) 8.8 mg DAILY@1600 PEG 12/27/16 16:00 02/25/17 16:52 (Lactulose Liq) 30 ml DAILY PRN PEG 12/27/16 15:30 (Cardizem) 30 mg QID PEG 01/09/17 18:00 02/28/17 09:51 (D50w (Vial) Inj) 50 ml UNSCH PRN IV 01/09/17 16:00 (Glucagon Inj) 1 mg UNSCH PRN OTHER 01/09/17 16:00 (Prevacid Odt) 30 mg BID NG 01/26/17 21:00 02/28/17 09:51 (Ashish Powder) 1 pack BID G-TUBE 02/10/17 21:00 02/28/17 09:00 (Ferrous Sulfate Liq) 300 mg DAILY PO 02/14/17 09:00 02/28/17 09:53 (Vitamin C) 1,000 mg DAILY PO 02/14/17 09:00 02/28/17 09:50 Bacitracin 0.9 gm 0.9 gm DAILY TOPICAL 02/25/17 09:00 02/28/17 09:00 Piperacillin Sod/ Tazobactam Sod 50 ml @ 100 mls/hr Q6H IV 02/26/17 11:00 03/05/17 10:59 02/28/17 10:57 Sodium Chloride 1,000 ml @ 42 mls/hr [id number] IV 02/27/17 08:15 02/28/17 00:07 (NS 250 ml Inj) 250 ml @ 15 mls/hr ONCE ONCE IV 02/28/17 09:30 03/01/17 02:09 Assessment and Plan Assessment and Plan UROLOGIC IMPRESSION: #1 New onset gross hematuria initially believed related to Arevalo trauma #2 CT scan consistent with a large locally advanced bladder cancer #3 persistent hematuria although it is dark blood and consistent with a prior bleed with ongoing clot dissolution RECOMMENDATIONS: #1 Con't Arevalo to gravity #2 Irrigate Arevalo prn #[address] findings with patient's daughter late yesterday over the phone and once again today with [id number] contact. She would like for me to proceed with cystoscopic evaluation with biopsy of the mass to confirm that it is bladder cancer. Patient scheduled for cystoscopy with bladder biopsy Friday morning at 9 AM. Thomas Sewell MD Feb 28, 2017 14:19
--- NOTE | 2017-02-28 15:03 | HHI.PR ---
Subjective Remarks ass OPENS EYES NO DISTRESS o2 sat 95% feeding tube replaced Objective Vital Signs Date Time Temp Pulse Resp B/P Pulse Ox O2 Delivery O2 Flow Rate FiO2 02/28/17 12:00 96.9 101 16 100/60 98 02/28/17 08:00 95.7 103 17 110/70 99 02/28/17 07:35 18 02/28/17 04:00 99.0 113 20 113/65 100 02/28/17 00:00 97.7 112 20 136/71 100 02/27/17 20:00 97.5 100 20 106/64 100 02/27/17 17:28 100 T-piece 6.00 28 02/27/17 16:00 97.9 94 16 99/66 100 I/O 02/27/17 02/27/17 02/27/17 02/28/17 02/28/17 02/28/17 07:00 15:00 23:00 07:00 15:00 23:00 Intake Total 894 ml 0 ml 2337 ml 0 ml Output Total 750 ml 1245.0 ml 450 ml 1050 ml 300 ml Balance 144 ml -1245.0 ml -450 ml 1287 ml -300 ml Intake Oral 480 ml 0 ml 0 ml IV Total 100 ml 1387 ml Tube Feeding 134 ml 650 ml Tube Irrigant 180 ml 300 ml Output Urine Total 750 ml 1225 ml 450 ml 1050 ml 300 ml Tube Feeding Residual Discard 20.0 ml 0 ml # Bowel Movements 3 1 1 2 0 Result Diagram: 02/28/17 0616 02/26/17 0117 Procedures 01/02/16 PEG placement 01/02/16 tracheostomy 07/22/2016 Wide excision of sacral skin wound, biopsy of the cavity lining and debridement. PEG tube replacement 07/29/16 Objective Remarks GENERAL: SKIN: Warm and dry. HEAD: Atraumatic. Normocephalic. EYES: Pupils equal and round. No scleral icterus. No injection or drainage. ENT: No nasal bleeding or discharge. Mucous membranes pink and moist. NECK: Trachea midline. No JVD. CARDIOVASCULAR: Regular rate and rhythm. RESPIRATORY: No accessory muscle use. Clear to auscultation. Breath sounds equal bilaterally. GASTROINTESTINAL: Abdomen soft, non-tender, nondistended. Hepatic and splenic margins not palpable. MUSCULOSKELETAL: Extremities without clubbing, cyanosis, or edema. No obvious deformities. NEUROLOGICAL: Awake and alert. No obvious cranial nerve deficits. Motor grossly within normal limits. Five out of 5 muscle strength in the arms and legs. Normal speech. PSYCHIATRIC: Appropriate mood and affect; insight and judgment normal. Laboratory Tests Test 01/05/17 01/06/17 08:35 08:41 Red Blood Count 4.43 MIL/MM3 (4.50-5.90) Hemoglobin 9.9 GM/DL (13.0-17.0) Hematocrit 32.0 % (39.0-51.0) Mean Corpuscular Volume 72.1 FL (80.0-100.0) Mean Corpuscular Hemoglobin 22.3 PG (27.0-34.0) Mean Corpuscular Hemoglobin 30.9 % Concent (32.0-36.0) Red Cell Distribution Width 19.9 % (11.6-17.2) Sodium Level 134 MEQ/L 133 MEQ/L (136-145) (136-145) Random Glucose 136 MG/DL 132 MG/DL (74-106) (74-106) Creatinine 0.59 MG/DL (0.60-1.30) GENERAL: SKIN: Warm and dry. HEAD: Atraumatic. Normocephalic. EYES: Pupils equal and round. No scleral icterus. No injection or drainage. ENT: No nasal bleeding or discharge. Mucous membranes pink and moist. NECK: Trachea midline. No JVD. TRACH. [place] CARDIOVASCULAR: Regular rate and rhythm. RESPIRATORY: No accessory muscle use. Clear to auscultation. Breath sounds equal bilaterally. GASTROINTESTINAL: Abdomen soft, non-tender, nondistended. Hepatic and splenic margins not palpable. MUSCULOSKELETAL: Extremities without clubbing, cyanosis, or edema. No obvious deformities. NEUROLOGICAL: Awake and alert. No obvious cranial nerve deficits. Motor grossly within normal limits. Five out of 5 muscle strength in the arms and legs. Normal speech. PSYCHIATRIC: Appropriate mood and affect; insight and judgment normal. Assessment and Plan Assessment and Plan impression respiratory failure CVA S/P TRACHEOSTOMY HEMATURIA PLAN O2 NEEDED PULM. TOILET FOR CYSTOSCOPY [facility] poor Brandon Taylor MD Feb 28, 2017 15:03
[2017-02-28] MEDS: SENNOSIDES SYRUP 8.8 MG/5 ML CUP PEG SCH (16:00)
[2017-02-28] MEDS: PARoxetine HCL SUSP 20 MG/10 ML UDC PEG SCH (17:41)
[2017-03-01] VITALS (9 sets, daily range): BP systolic 100–117; BP diastolic 59–68; PULSE 87–102; RESP 16–20; TEMP 95.2–99.5; O2SAT 98–100
[2017-03-01] MEDS: PIPERACIL-TAZO 3.375 GM PREMIX 50 ML IV SCH ×4 (04:49→22:30)
[2017-03-01] MEDS: ACETIC ACID 0.25% SOLN 1000 ML IRR BTL IRRIGATION SCH ×3 (04:56→21:53)
[2017-03-01] MEDS: LANSOPRAZOLE SOLUTAB 30 MG TAB NG SCH ×2 (07:26→21:50)
[2017-03-01] MEDS: NYSTATIN 100,000 U/GM PWD 15 GM BTL TOPICAL SCH ×2 (07:26→21:00)
[2017-03-01] MEDS: FERROUS SULFATE 300 MG /5ML UDC PO SCH (07:26)
[2017-03-01] MEDS: HYOSCYAMINE 0.125 MG TAB G-TUBE PRN (07:26)
[2017-03-01] MEDS: ASCORBIC ACID 500 MG TAB PO SCH (07:26)
[2017-03-01] MEDS: levETIRAcetam 500 MG/5 ML UDC TUBE SCH ×2 (07:26→21:50)
[2017-03-01] MEDS: ARTIFICIAL TEARS OPTH SOLN 15 ML BTL EACH EYE SCH ×2 (07:27→21:51)
[2017-03-01] MEDS: SODIUM CHLORIDE 0.65% NASAL SPRAY 45 ML BTL NASAL SCH ×2 (07:27→21:52)
[2017-03-01] MEDS: BACITRACIN TOP OINT 15 GM TUBE TOP SCH ×2 (07:27→21:52)
[2017-03-01] MEDS: BACITRACIN OINT 0.9 GM PKT TOPICAL SCH (07:27)
[2017-03-01] MEDS: JUVEN POWDER 1 PACK G-TUBE SCH ×2 (07:27→21:00)
[2017-03-01] MEDS: DILTIAZEM HCL 30 MG TAB PEG SCH ×4 (07:32→21:00)
[2017-03-01 07:42] LABS: HEMATOCRIT 25.5 % (39.0-51.0); MEAN CELL VOLUME 73.7 FL (80.0-100.0); MEAN CORPUSCULAR HEMOGLOBIN 23.6 PG (27.0-34.0); PLATELET COUNT 178 TH/MM3 (150-450); RED BLOOD COUNT 3.46 MIL/MM3 (4.50-5.90); RED CELL DISTRIBUTION WIDTH 19.8 % (11.6-17.2); REVIEW FLAG FINAL
[2017-03-01 07:54] LABS: BICARBONATE 24.6 MEQ/L (21.0-32.0); POTASSIUM 3.5 MEQ/L (3.5-5.1)
--- NOTE | 2017-03-01 09:09 | HHI.PR ---
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 Patient seen today. Mother and daughter at the bedside. Patient is awake and alert, does not follow any commands, nonverbal. Discuss with family members regarding plan for biopsy and Dr. Sewell. Discuss lab results. Responded and answered all their concerns. Mother is thankful. Patient appears comfortable. Objective Vitals Vital Signs Date Time Temp Pulse Resp B/P Pulse Ox O2 Delivery O2 Flow Rate FiO2 03/01/17 04:00 97.1 102 18 107/68 100 03/01/17 01:56 98.6 102 18 104/60 100 03/01/17 00:00 97.7 99 20 112/64 100 02/28/17 22:13 96.9 18 18 104/66 100 02/28/17 21:38 97.6 98 20 112/65 100 02/28/17 21:00 100 Trach Collar 6.00 02/28/17 20:00 97.8 111 20 118/59 99 02/28/17 17:32 96 T-piece 6.00 28 02/28/17 16:00 95.9 103 16 93/63 96 02/28/17 12:00 96.9 101 16 100/60 98 02/28/17 09:30 99 Trach Collar 6.00 28 T-Piece I/O 02/28/17 02/28/17 02/28/17 03/01/17 03/01/17 03/01/17 06:59 14:59 22:59 06:59 14:59 22:59 Intake Total 2337 ml 1061 ml 1746 ml Output Total 1500 ml 300 ml 1350 ml Balance 837 ml 761 ml 396 ml Intake Oral 0 ml IV Total 1387 ml 1061 ml 763 ml Tube Feeding 650 ml 688 ml Tube Irrigant 300 ml 295 ml Output Urine Total 1500 ml 300 ml 1350 ml # Bowel Movements 3 0 1 Result Diagram: 03/01/1719 03/01/17618 Imaging Last Impressions Abdomen/Pelvis CT 02/27/17 0000 Signed Impressions: Service Date/Time: February 02:24 - CONCLUSION: 1. Abdominal aortic aneurysm. 2. Bladder mass is noted on the right posteriorly with apparent extravesical extension and clot formation. 3. Left renal cyst. 4. Left lower lobe atelectasis. 5. Large sacral decubitus ulcer with bony destruction and sclerosis of the sacrum mid to left lateral portion in the region of S3 and inferiorly which would suggest chronic osteomyelitis in the appropriate clinical setting. Rajan Granados MD Soft Tissue Ultrasound 02/26/17 0000 Signed Impressions: Service Date/Time: Sunday, February 26, 2017 12:52 - CONCLUSION: 1. Just inferior to the G-tube in the left abdomen, there is a superficial 3.8 x 2.9 0.9 cm complex fluid collection in the subcutaneous tissues. 2. Findings are nonspecific. This could represent a small seroma or abscess. Would consider CT scan of the abdomen without contrast for further evaluation to determine if there is intraperitoneal extension. Bobby Gray MD Gastrostomy Tube Placement 02/25/17 0000 Signed Impressions: Service Date/Time: Saturday, February 25, 2017 14:19 - CONCLUSION: Uncomplicated exchange of gastroenteric feeding tube for gastrostomy tube as above. Positioning confirmed. The tube can be used immediately. Glen Zamora MD Chest X-Ray 02/22/17 0000 Signed Impressions: Service Date/Time: Wednesday, February 22, 2017 13:12 - CONCLUSION: Minimal atelectasis. Otherwise -1 view chest x-ray. Glen Moore MD Tube Change 02/14/17 0000 Signed Impressions: Service Date/Time: Tuesday, February 14, 2017 00:00 - CONCLUSION: Uncomplicated gastrojejunostomy tube exchange as above. Scott Griffin MD Head CT 01/09/17 0000 Signed Impressions: Service Date/Time: December 17:43 - CONCLUSION: 1. No acute hemorrhage or mass effect. 2. 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 3. Atrophy. Gerald Mukherjee MD CT Angiography 01/09/17 0000 Signed Impressions: Service Date/Time: December 17:49 - CONCLUSION: 1. No evidence of pulmonary emboli. 2. Patchy consolidation in both posterior lower lobes right greater than left. This could represent pneumonia. 3. 2 small noncalcified pulmonary nodules which are nonspecific finding. Short-term CT followup is recommended beginning in 6 months with a noncontrast outpatient CT. Gerald Mukherjee MD Tube Check 12/04/16 0000 Signed Impressions: Service Date/Time: Sunday, December 04, 2016 17:58 - CONCLUSION: Uncomplicated tube injection as above. the tube is in good position and functions normally. Moises Ramírez MD Abdomen X-Ray 08/31/16 0000 Signed Impressions: Service Date/Time: Wednesday, August 31, 2016 16:36 - CONCLUSION: 1. No acute findings. Mild constipation. Durga Dotson MD Head Magnetic Resonance Angiography 03/05/16 0000 Signed Impressions: Service Date/Time: Saturday, March 05, 2016 09:26 - CONCLUSION: Persistent high-grade subtotal occlusive stenotic lesions in the distal right vertebral artery and proximal basilar artery with significant improvement in flow and recanalization following initial presentation of thrombosis. Stable interstitial circulation without significant stenosis. Ernesto Kulkarni MD Brain MRI 03/05/16 0000 Signed Impressions: Service Date/Time: Saturday, March 05, 2016 09:26 - CONCLUSION: Evolving brainstem and bilateral occipital lobe infarcts with evidence of subacute hemorrhagic products. There is decreasing restricted diffusion and increasing loss of volume characteristic of a subacute to chronic infarct. No evidence of acute infarct, acute hemorrhage mass or edema. Ernesto Kulkarni MD Neck Magnetic Resonance Angiography 12/22/15 1445 Signed Impressions: Service Date/Time: Tuesday, December 22, 2015 09:22 - CONCLUSION: Variant origin of the left vertebral artery from the aortic arch. No evidence of carotid stenosis. Glen Zamora MD Head/Brain Mag Res Venography 12/22/15 0000 Signed Impressions: Service Date/Time: Tuesday, December 22, 2015 09:22 - CONCLUSION: Normal MRV. Jonel Jones Jr., MD Objective Remarks GENERAL: Nonverbal, in no apparent distress. SKIN: Warm and dry. Right 1st toe covered with dsg, s/p ingrown toe nail removal. HEENT: Normocephalic. Pupils nonicteric. Nose without bleeding. NECK: Trachea midline.T-tube in place, site clean, dry, intact. CARDIOVASCULAR: Regular rate and rhythm without murmurs, gallops, or rubs. RESPIRATORY: Coarse breath sounds. Secretions white moderately thick, small amount GASTROINTESTINAL: Abdomen soft, non-tender, nondistended. Bowel Sounds hypoactive. GJ tube in place, below incision site area slight erythema, no drainage noted. : Lopez catheter in place, notable gross hematuria MUSCULOSKELETAL: Extremities without clubbing, cyanosis, Bilat foot +1 edema. NEUROLOGICAL: Eyes opening. Not following commands. Nonverbal. Procedures 07/22/2016 Wide excision of sacral skin wound, biopsy of the cavity lining and debridement. PEG removal and Gj tube placement 07/29/16 VAC changes- M-W-F 10/23/16, 11/18, 12/31- GJ tube replacement 01/02/16 PEG placement 01/02/16 tracheostomy 02/25/17 PEG replacement Date of Insertion: Feb 10, 2017 A/P Problem List: (1) CVA (cerebral vascular accident) ICD Code: I63.9 Status: Acute (2) A-fib ICD Code: I48.91 Status: Chronic (3) DM (diabetes mellitus) ICD Code: E11.9 Status: Chronic Assessment and Plan 60 year-old male with past medical history of paroxysmal A. fib, hypertension, stage III non-Hodgkin's lymphoma status post chemotherapy who came into the hospital with altered mental status. Gross Hematuria - Lopez change - Hematuria continues - Hold Heparin for now, hold aspirin - Urology Consult appreciated. Recommends flushing Lopez catheter. - CT of the abdomen showed bladder mass right posteriorly with apparent extravesical extension and clot formation. To call urology regarding bladder mass. - Awaiting for urology conditions. As per nursing, urology spoke with family member, daughter, states that she's not recommending biopsy of the bladder mass. However daughter insisted on biopsy. - As per mother, she wants everything done for him. - H&H dropped to 7.4/24.3. Transfuse 1 unit packed RBCs. - Repeat CBC 8.2/25.5. Continue to monitor. Will Transfuse as needed. - Spoke with Dr. Sewell, plan for cystoscopy biopsy Friday. Continue to flush lopez catheter PRN. Abdominal wound/ lesion - Below the GJ incision site - Wound Care consulted and recommends leaving open to air, imaging soft tissue ultrasound. - Bacitracin for now - Ultrasound soft tissue surrounding area for possible fluid collection that would need I & D. - Soft tissue ultrasound showed 1. Just inferior to that she tube in the left abdomen, there is a superficial 3.8 x 2.9 0.9 cm complex fluid collection in the subcutaneous tissue. 2. Findings are nonspecific. This could represent a small seroma or abscess. Would consider CT scan of the abdomen with contrast for further evaluation and determine if there is an intraperitoneal extension. - CT of the abdomen showed 1. Abdominal aortic aneurysm. 2. Bladder mass is noted on the right posteriorly with apparent extravesical extension and clot formation. 3. Left renal cyst. 4. Left lower lobe atelectasis. 5. Large sacral decubitus ulcer with bony disruption and sclerosis of the sacrum mid to left lateral portion in the region of S3 and inferiorly which would suggest chronic osteomyelitis in the appropriate clinical setting. - No intraperitoneal extension noted for the wound, will possibly need bedside I&D. Wound consult. 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 Intermittently tracks with eyes. Sister at bedside. - Continue Keppra 500mg BID for seizure prophylaxis. - PT/OT signed off as patient is unable to participate. - On Paxil 20 by mouth daily for depression. - On acetaminophen with codeine for pain scale of 2-10. - Morphine 1 mg every 24 hours when necessary for dressing change Chronic respiratory failure secondary to CVA - Status post tracheostomy. Continue pulmonary toilet and bronchodilators as needed. Continue trach care, suctioning. Levsin as needed. - Trach changed to size #6 XLT on 01/09 - Duo nebs every 6 hours - Pulmonary currently following, appreciate assistance. - 01/09 CTA chest: No PE, bilateral lower lobe infiltrates. 4 mm right upper lobe/5 mm right middle lobe nodule. - CXR 02/22/17 reveals minimal atelectasis Right hallux ingrown toenail, paronychia- medial aspect 02/23/17 new area of paronychia right hallux ingrown toe nail lateral aspect - Drilling Manager has seen patient. I & D with partial nail avulsion performed at bedside 02/06/17. - Seen by podiatry. Plan is to aggressively cut the nail back. - Resolved Atrial fibrillation, controlled Hypertension Dyslipidemia - Continue rate control with Cardizem and metoprolol. - Echocardiogram in November 2015 shows preserved ejection fraction. Coumadin discontinued secondary to bleeding. - Continue aspirin and prophylactic heparin dose. History of non-Hodgkin's lymphoma - Status post brain biopsy on December 13 by neurosurgery. Pathology consistent with acute infarct without evidence of lymphoma. Oncology has signed off. Diabetes mellitus Type 2 - Hemoglobin A1c is 5.5. - Fingersticks have been stable and were DC'd 02/01/17 Decubitus ulcer stage IV - Continue wound care, twice-daily dressing changes. Wound care recommendations last updated 12/12/16. Continue pressure relief measures including turning and positioning. Patient's family has declined a diverting colostomy. Previous Wound culture growing Klebsiella and Enterococcus Faecalis. Previously on Augmentin. Status post wide excision of sacral skin and biopsy of the cavity lining with debridement on 07/22/16. - Wound care last saw patient on 01/17/17, no new recommendations continue packing with Betadine moistened rolled Janis and covered with ABD pad and paper tape to secure. - Continue to monitor. Continue pressure-relief. - Morphine 1 mg every 24 hours when necessary for dressing change Protein calorie malnutrition Gastroesophageal reflux disease Gastric ulcer, reflux esophagitis Diarrhea, negative for C. difficile. Improved - EGD on 07/30/16 showed gastric ulcers. - On Prevacid 30 mg Q12, on tube feeds(Jevity 1.5 at 55 ml/hr) - Continue bowel regimen with hold parameters, Lactinex and Imodium. - G/J tube clogged, IR consulted to evaluate. Replaced on 02/25/17 - Reiterated proper G/J tube care and flush procedures. Discuss and explained with family. UTI pseudomonas aeruginosa Recurrent - Previous Repeat Ucx 08/28/16 negative. - 02/22/17 UA consistent with UTI - cultures pseudomonas, currently on Rocephin will change to cefepime since last culture was also Pseudomonas and was sensitive to cefepime. - Sensitivities came back, was switched over to Zosyn as cultures are not sensitive to cefepime. Klebsiella/Pseudomonas/staph aureus HCAP PSAE UTI - S/p Cefepime. Monitor for signs of infections. - strep pneumonia and Legionella urinary Ag is negative - C-diff PCR negative on 01/13 - 01/09 BC : Staph Epi, Urine cx: Pseudomonas, Sputum cx: Pseudomonas, kleb, Staph. - Patient was pancultured on 01/19 (Blood, sputum, urine) NGTD in urine and blood. Sputum + for pseudomonas. Patient has a placement for [facility]. Plan for discharge was held for now in lieu of ongoing hematuria, urology consult for hematuria. Plan for biopsy cystoscopy on Friday03/03/17 DVT prophylaxis: SCDs. Heparin 5,000 units sq Q8hr (Held). Discussed with pt's family members, nursing, and Dr. Buck Discharge Planning Case management involved with discharge planning. As per case management's note , we'll speak with long-term care case management Ismael. Ismael will need to speak to patient's family had questions and will follow up with [facility] in [facility] as the patient had placement in the said facility. Problem Qualifiers (1) CVA (cerebral vascular accident): (2) DM (diabetes mellitus): Qualified Code: E11.9 - Type 2 diabetes mellitus without complications Kurt Rosa Mar 01, 2017 09:09
[2017-03-01] MEDS: RESP: LEVALBUTEROL HYDROCHLORIDE 0.63 MG/3 ML NEB (PRN) NEB (09:51)
[2017-03-01] MEDS: SENNOSIDES SYRUP 8.8 MG/5 ML CUP PEG SCH (16:22)
--- NOTE | 2017-03-01 16:43 | HHI.PR ---
Subjective Remarks ass OPENS EYES NO DISTRESS o2 sat 95% feeding tube replaced Objective Vital Signs Date Time Temp Pulse Resp B/P Pulse Ox O2 Delivery O2 Flow Rate FiO2 03/01/17 12:00 99.5 98 16 117/68 99 03/01/17 09:51 98 T-piece 28 03/01/17 08:00 95.2 99 16 116/68 99 03/01/17 08:00 99 Mechanical Ventilator 6.00 28 Trach Collar T-Piece 03/01/17 04:00 97.1 102 18 107/68 100 03/01/17 01:56 98.6 102 18 104/60 100 03/01/17 00:00 97.7 99 20 112/64 100 02/28/17 22:13 96.9 18 18 104/66 100 02/28/17 21:38 97.6 98 20 112/65 100 02/28/17 21:00 100 Trach Collar 6.00 02/28/17 20:00 97.8 111 20 118/59 99 02/28/17 17:32 96 T-piece 6.00 28 I/O 02/28/17 02/28/17 02/28/17 03/01/17 03/01/17 03/01/17 07:00 15:00 23:00 07:00 15:00 23:00 Intake Total 2337 ml 1061 ml 1746 ml 100 ml Output Total 1050 ml 300 ml 1350 ml 0 ml Balance 1287 ml 761 ml 396 ml 100 ml Intake Oral 0 ml IV Total 1387 ml 1061 ml 763 ml 100 ml Tube Feeding 650 ml 688 ml Tube Irrigant 300 ml 295 ml Output Urine Total 1050 ml 300 ml 1350 ml Tube Feeding Residual Discard 0 ml # Bowel Movements 2 0 1 Result Diagram: 03/01/17 0619 03/01/17 0619 Procedures 01/02/16 PEG placement 01/02/16 tracheostomy 07/22/2016 Wide excision of sacral skin wound, biopsy of the cavity lining and debridement. PEG tube replacement 07/29/16 Objective Remarks GENERAL: SKIN: Warm and dry. HEAD: Atraumatic. Normocephalic. EYES: Pupils equal and round. No scleral icterus. No injection or drainage. ENT: No nasal bleeding or discharge. Mucous membranes pink and moist. NECK: Trachea midline. No JVD. CARDIOVASCULAR: Regular rate and rhythm. RESPIRATORY: No accessory muscle use. Clear to auscultation. Breath sounds equal bilaterally. GASTROINTESTINAL: Abdomen soft, non-tender, nondistended. Hepatic and splenic margins not palpable. MUSCULOSKELETAL: Extremities without clubbing, cyanosis, or edema. No obvious deformities. NEUROLOGICAL: Awake and alert. No obvious cranial nerve deficits. Motor grossly within normal limits. Five out of 5 muscle strength in the arms and legs. Normal speech. PSYCHIATRIC: Appropriate mood and affect; insight and judgment normal. Laboratory Tests Test 01/05/17 01/06/17 08:35 08:41 Red Blood Count 4.43 MIL/MM3 (4.50-5.90) Hemoglobin 9.9 GM/DL (13.0-17.0) Hematocrit 32.0 % (39.0-51.0) Mean Corpuscular Volume 72.1 FL (80.0-100.0) Mean Corpuscular Hemoglobin 22.3 PG (27.0-34.0) Mean Corpuscular Hemoglobin 30.9 % Concent (32.0-36.0) Red Cell Distribution Width 19.9 % (11.6-17.2) Sodium Level 134 MEQ/L 133 MEQ/L (136-145) (136-145) Random Glucose 136 MG/DL 132 MG/DL (74-106) (74-106) Creatinine 0.59 MG/DL (0.60-1.30) GENERAL: SKIN: Warm and dry. HEAD: Atraumatic. Normocephalic. EYES: Pupils equal and round. No scleral icterus. No injection or drainage. ENT: No nasal bleeding or discharge. Mucous membranes pink and moist. NECK: Trachea midline. No JVD. TRACH. [place] CARDIOVASCULAR: Regular rate and rhythm. RESPIRATORY: No accessory muscle use. Clear to auscultation. Breath sounds equal bilaterally. GASTROINTESTINAL: Abdomen soft, non-tender, nondistended. Hepatic and splenic margins not palpable. MUSCULOSKELETAL: Extremities without clubbing, cyanosis, or edema. No obvious deformities. NEUROLOGICAL: Awake and alert. No obvious cranial nerve deficits. Motor grossly within normal limits. Five out of 5 muscle strength in the arms and legs. Normal speech. PSYCHIATRIC: Appropriate mood and affect; insight and judgment normal. Assessment and Plan Assessment and Plan impression respiratory failure CVA S/P TRACHEOSTOMY HEMATURIA PLAN O2 NEEDED PULM. TOILET FOR CYSTOSCOPY Manson poor Brandon Taylor MD Mar 01, 2017 16:43
[2017-03-01] MEDS: PARoxetine HCL SUSP 20 MG/10 ML UDC PEG SCH (18:39)
[2017-03-02] VITALS (7 sets, daily range): BP systolic 97–115; BP diastolic 61–70; PULSE 91–105; RESP 18–24; TEMP 97.6–99.4; O2SAT 95–100
[2017-03-02] MEDS: ACETIC ACID 0.25% SOLN 1000 ML IRR BTL IRRIGATION SCH ×3 (06:49→21:08)
[2017-03-02] MEDS: PIPERACIL-TAZO 3.375 GM PREMIX 50 ML IV SCH ×4 (06:49→22:47)
[2017-03-02] MEDS: LANSOPRAZOLE SOLUTAB 30 MG TAB NG SCH ×2 (08:07→21:08)
[2017-03-02] MEDS: levETIRAcetam 500 MG/5 ML UDC TUBE SCH ×2 (08:07→21:07)
[2017-03-02] MEDS: BACITRACIN OINT 0.9 GM PKT TOPICAL SCH (08:07)
[2017-03-02] MEDS: ASCORBIC ACID 500 MG TAB PO SCH (08:07)
[2017-03-02] MEDS: ARTIFICIAL TEARS OPTH SOLN 15 ML BTL EACH EYE SCH ×2 (08:07→21:07)
[2017-03-02] MEDS: BACITRACIN TOP OINT 15 GM TUBE TOP SCH ×2 (08:07→21:07)
[2017-03-02] MEDS: FERROUS SULFATE 300 MG /5ML UDC PO SCH (08:07)
[2017-03-02] MEDS: SODIUM CHLORIDE 0.65% NASAL SPRAY 45 ML BTL NASAL SCH ×2 (08:07→21:06)
[2017-03-02] MEDS: DILTIAZEM HCL 30 MG TAB PEG SCH ×4 (08:07→21:09)
[2017-03-02] MEDS: NYSTATIN 100,000 U/GM PWD 15 GM BTL TOPICAL SCH ×2 (08:08→21:00)
[2017-03-02] MEDS: RESP: LEVALBUTEROL HYDROCHLORIDE 0.63 MG/3 ML NEB (PRN) NEB (08:50)
--- NOTE | 2017-03-02 10:05 | HHI.PR ---
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 Patient seen today. Mother and daughter at the bedside. Patient is laying in bed asleep. No acute issues overnight. Continues to have hematuria. All questions of concerns of the family were addressed. Family is thankful. Objective Vitals Vital Signs Date Time Temp Pulse Resp B/P Pulse Ox O2 Delivery O2 Flow Rate FiO2 03/02/17 02:10 98 T-piece 5.00 28 03/02/17 00:00 97.6 95 18 112/67 100 03/01/17 21:08 100 T-piece 28 03/01/17 20:30 100 Trach Collar 6.00 T-Piece 03/01/17 20:00 98.2 87 18 114/62 99 03/01/17 16:00 97.3 91 16 100/59 100 03/01/17 12:00 99.5 98 16 117/68 99 I/O 03/01/17 03/01/17 03/01/17 03/02/17 03/02/17 03/02/17 07:00 15:00 23:00 07:00 15:00 23:00 Intake Total 2246 ml 100 ml 563 ml 830 ml Output Total 1350 ml 1000 ml 950 ml 400 ml Balance 896 ml -900 ml -387 ml 430 ml Intake Oral 0 ml IV Total 763 ml 100 ml 160 ml Tube Feeding 688 ml 383 ml 459 ml Packed Cells 500 ml Tube Irrigant 295 ml 180 ml 211 ml Output Urine Total 1350 ml 1000 ml 950 ml 400 ml Tube Feeding Residual Discard 0 ml # Bowel Movements 1 1 Result Diagram: 03/01/17 0619 03/01/17 0619 Imaging Last Impressions Abdomen/Pelvis CT 02/27/17 0000 Signed Impressions: Service Date/Time: February 02:24 - CONCLUSION: 1. Abdominal aortic aneurysm. 2. Bladder mass is noted on the right posteriorly with apparent extravesical extension and clot formation. 3. Left renal cyst. 4. Left lower lobe atelectasis. 5. Large sacral decubitus ulcer with bony destruction and sclerosis of the sacrum mid to left lateral portion in the region of S3 and inferiorly which would suggest chronic osteomyelitis in the appropriate clinical setting. Rajan Granados MD Soft Tissue Ultrasound 02/26/17 0000 Signed Impressions: Service Date/Time: Sunday, February 26, 2017 12:52 - CONCLUSION: 1. Just inferior to the G-tube in the left abdomen, there is a superficial 3.8 x 2.9 0.9 cm complex fluid collection in the subcutaneous tissues. 2. Findings are nonspecific. This could represent a small seroma or abscess. Would consider CT scan of the abdomen without contrast for further evaluation to determine if there is intraperitoneal extension. Bobby Gray MD Gastrostomy Tube Placement 02/25/17 0000 Signed Impressions: Service Date/Time: Saturday, February 25, 2017 14:19 - CONCLUSION: Uncomplicated exchange of gastroenteric feeding tube for gastrostomy tube as above. Positioning confirmed. The tube can be used immediately. Glen Zamora MD Chest X-Ray 02/22/17 0000 Signed Impressions: Service Date/Time: Wednesday, February 22, 2017 13:12 - CONCLUSION: Minimal atelectasis. Otherwise -1 view chest x-ray. Glen Moore MD Tube Change 02/14/17 0000 Signed Impressions: Service Date/Time: Tuesday, February 14, 2017 00:00 - CONCLUSION: Uncomplicated gastrojejunostomy tube exchange as above. Scott Griffin MD Head CT 01/09/17 0000 Signed Impressions: Service Date/Time: December 17:43 - CONCLUSION: 1. No acute hemorrhage or mass effect. 2. 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 3. Atrophy. Gerald Mukherjee MD CT Angiography 01/09/17 0000 Signed Impressions: Service Date/Time: December 17:49 - CONCLUSION: 1. No evidence of pulmonary emboli. 2. Patchy consolidation in both posterior lower lobes right greater than left. This could represent pneumonia. 3. 2 small noncalcified pulmonary nodules which are nonspecific finding. Short-term CT followup is recommended beginning in 6 months with a noncontrast outpatient CT. Gerald Mukherjee MD Tube Check 12/04/16 0000 Signed Impressions: Service Date/Time: Sunday, December 04, 2016 17:58 - CONCLUSION: Uncomplicated tube injection as above. the tube is in good position and functions normally. Moises Ramírez MD Abdomen X-Ray 08/31/16 0000 Signed Impressions: Service Date/Time: Wednesday, August 31, 2016 16:36 - CONCLUSION: 1. No acute findings. Mild constipation. Durga Dotson MD Head Magnetic Resonance Angiography 03/05/16 0000 Signed Impressions: Service Date/Time: Saturday, March 05, 2016 09:26 - CONCLUSION: Persistent high-grade subtotal occlusive stenotic lesions in the distal right vertebral artery and proximal basilar artery with significant improvement in flow and recanalization following initial presentation of thrombosis. Stable interstitial circulation without significant stenosis. Ernesto Kulkarni MD Brain MRI 03/05/16 0000 Signed Impressions: Service Date/Time: Saturday, March 05, 2016 09:26 - CONCLUSION: Evolving brainstem and bilateral occipital lobe infarcts with evidence of subacute hemorrhagic products. There is decreasing restricted diffusion and increasing loss of volume characteristic of a subacute to chronic infarct. No evidence of acute infarct, acute hemorrhage mass or edema. Ernesto Kulkarni MD Neck Magnetic Resonance Angiography 12/22/15 1445 Signed Impressions: Service Date/Time: Tuesday, December 22, 2015 09:22 - CONCLUSION: Variant origin of the left vertebral artery from the aortic arch. No evidence of carotid stenosis. Glen Zamora MD Head/Brain Mag Res Venography 12/22/15 0000 Signed Impressions: Service Date/Time: Tuesday, December 22, 2015 09:22 - CONCLUSION: Normal MRV. Jonel Jones Jr., MD Objective Remarks GENERAL: Nonverbal, in no apparent distress. SKIN: Warm and dry. Right 1st toe covered with dsg, s/p ingrown toe nail removal. HEENT: Normocephalic. Pupils nonicteric. Nose without bleeding. NECK: Trachea midline.T-tube in place, site clean, dry, intact. CARDIOVASCULAR: Regular rate and rhythm without murmurs, gallops, or rubs. RESPIRATORY: Coarse breath sounds. Secretions white moderately thick, small amount GASTROINTESTINAL: Abdomen soft, non-tender, nondistended. Bowel Sounds hypoactive. GJ tube in place, below incision site area slight erythema, no drainage noted. : Lopez catheter in place, notable gross hematuria MUSCULOSKELETAL: Extremities without clubbing, cyanosis, Bilat foot +1 edema. NEUROLOGICAL: Asleep. Not following commands. Nonverbal. Procedures 07/22/2016 Wide excision of sacral skin wound, biopsy of the cavity lining and debridement. PEG removal and Gj tube placement 07/29/16 VAC changes- M-W-F 10/23/16, 11/18, 12/31- GJ tube replacement 01/02/16 PEG placement 01/02/16 tracheostomy 02/25/17 PEG replacement Date of Insertion: Feb 10, 2017 A/P Problem List: (1) CVA (cerebral vascular accident) ICD Code: I63.9 Status: Acute (2) A-fib ICD Code: I48.91 Status: Chronic (3) DM (diabetes mellitus) ICD Code: E11.9 Status: Chronic Assessment and Plan 60 year-old male with past medical history of paroxysmal A. fib, hypertension, stage III non-Hodgkin's lymphoma status post chemotherapy who came into the hospital with altered mental status. Gross Hematuria - Lopez change - Hematuria continues - Hold Heparin for now, hold aspirin - Urology Consult appreciated. Recommends flushing Lopez catheter. - CT of the abdomen showed bladder mass right posteriorly with apparent extravesical extension and clot formation. To call urology regarding bladder mass. - Awaiting for urology conditions. As per nursing, urology spoke with family member, daughter, states that she's not recommending biopsy of the bladder mass. However daughter insisted on biopsy. - As per mother, she wants everything done for him. - H&H dropped to 7.4/24.3. Transfuse 1 unit packed RBCs. - Repeat CBC 8.2/25.5. Continue to monitor. Will Transfuse as needed. - Spoke with Dr. Sewell, plan for cystoscopy biopsy Friday. Continue to flush lopez catheter PRN. Abdominal wound/ lesion - Below the GJ incision site - Wound Care consulted and recommends leaving open to air, imaging soft tissue ultrasound. - Bacitracin for now - Ultrasound soft tissue surrounding area for possible fluid collection that would need I & D. - Soft tissue ultrasound showed 1. Just inferior to that she tube in the left abdomen, there is a superficial 3.8 x 2.9 0.9 cm complex fluid collection in the subcutaneous tissue. 2. Findings are nonspecific. This could represent a small seroma or abscess. Would consider CT scan of the abdomen with contrast for further evaluation and determine if there is an intraperitoneal extension. - CT of the abdomen showed 1. Abdominal aortic aneurysm. 2. Bladder mass is noted on the right posteriorly with apparent extravesical extension and clot formation. 3. Left renal cyst. 4. Left lower lobe atelectasis. 5. Large sacral decubitus ulcer with bony disruption and sclerosis of the sacrum mid to left lateral portion in the region of S3 and inferiorly which would suggest chronic osteomyelitis in the appropriate clinical setting. - No intraperitoneal extension noted for the wound, will possibly need bedside I&D. Wound consult. 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 Intermittently tracks with eyes. Sister at bedside. - Continue Keppra 500mg BID for seizure prophylaxis. - PT/OT signed off as patient is unable to participate. - On Paxil 20 by mouth daily for depression. - On acetaminophen with codeine for pain scale of 2-10. - Morphine 1 mg every 24 hours when necessary for dressing change Chronic respiratory failure secondary to CVA - Status post tracheostomy. Continue pulmonary toilet and bronchodilators as needed. Continue trach care, suctioning. Levsin as needed. - Trach changed to size #6 XLT on 01/09 - Duo nebs every 6 hours - Pulmonary currently following, appreciate assistance. - 01/09 CTA chest: No PE, bilateral lower lobe infiltrates. 4 mm right upper lobe/5 mm right middle lobe nodule. - CXR 02/22/17 reveals minimal atelectasis Right hallux ingrown toenail, paronychia- medial aspect 02/23/17 new area of paronychia right hallux ingrown toe nail lateral aspect - Orthodontic Lab Technician has seen patient. I & D with partial nail avulsion performed at bedside 02/06/17. - Seen by podiatry. Plan is to aggressively cut the nail back. - Resolved Atrial fibrillation, controlled Hypertension Dyslipidemia - Continue rate control with Cardizem and metoprolol. - Echocardiogram in November 2015 shows preserved ejection fraction. Coumadin discontinued secondary to bleeding. - Continue aspirin and prophylactic heparin dose. History of non-Hodgkin's lymphoma - Status post brain biopsy on December 13 by neurosurgery. Pathology consistent with acute infarct without evidence of lymphoma. Oncology has signed off. Diabetes mellitus Type 2 - Hemoglobin A1c is 5.5. - Fingersticks have been stable and were DC'd 02/01/17 Decubitus ulcer stage IV - Continue wound care, twice-daily dressing changes. Wound care recommendations last updated 12/12/16. Continue pressure relief measures including turning and positioning. Patient's family has declined a diverting colostomy. Previous Wound culture growing Klebsiella and Enterococcus Faecalis. Previously on Augmentin. Status post wide excision of sacral skin and biopsy of the cavity lining with debridement on 07/22/16. - Wound care last saw patient on 01/17/17, no new recommendations continue packing with Betadine moistened rolled Janis and covered with ABD pad and paper tape to secure. - Continue to monitor. Continue pressure-relief. - Morphine 1 mg every 24 hours when necessary for dressing change Protein calorie malnutrition Gastroesophageal reflux disease Gastric ulcer, reflux esophagitis Diarrhea, negative for C. difficile. Improved - EGD on 07/30/16 showed gastric ulcers. - On Prevacid 30 mg Q12, on tube feeds(Jevity 1.5 at 55 ml/hr) - Continue bowel regimen with hold parameters, Lactinex and Imodium. - G/J tube clogged, IR consulted to evaluate. Replaced on 02/25/17 - Reiterated proper G/J tube care and flush procedures. Discuss and explained with family. UTI pseudomonas aeruginosa Recurrent - Previous Repeat Ucx 08/28/16 negative. - 02/22/17 UA consistent with UTI - cultures pseudomonas, currently on Rocephin will change to cefepime since last culture was also Pseudomonas and was sensitive to cefepime. - Sensitivities came back, was switched over to Zosyn as cultures are not sensitive to cefepime. Klebsiella/Pseudomonas/staph aureus HCAP PSAE UTI - S/p Cefepime. Monitor for signs of infections. - strep pneumonia and Legionella urinary Ag is negative - C-diff PCR negative on 01/13 - 01/09 BC : Staph Epi, Urine cx: Pseudomonas, Sputum cx: Pseudomonas, kleb, Staph. - Patient was pancultured on 01/19 (Blood, sputum, urine) NGTD in urine and blood. Sputum + for pseudomonas. Patient has a placement for [place]. Plan for discharge was held for now in lieu of ongoing hematuria, urology consult for hematuria. Plan for biopsy cystoscopy on Friday03/03/17 DVT prophylaxis: SCDs. Heparin 5,000 units sq Q8hr (Held). Discussed with pt's family members, nursing, and Dr. Buck Discharge Planning Case management involved with discharge planning. As per case management's note , we'll speak with long-term care case management Ismael. Ismael will need to speak to patient's family and will follow up with [facility] in [facility] as the patient had placement in the said facility. Problem Qualifiers (1) CVA (cerebral vascular accident): (2) DM (diabetes mellitus): Kurt Rosa Mar 02, 2017 10:05
[2017-03-02] MEDS: JUVEN POWDER 1 PACK G-TUBE SCH ×2 (10:53→21:00)
[2017-03-02] MEDS: HYOSCYAMINE 0.125 MG TAB G-TUBE PRN (10:59)
--- NOTE | 2017-03-02 15:14 | HHI.PR ---
Subjective Remarks ass OPENS EYES NO DISTRESS o2 sat 95% feeding tube replaced Objective Vital Signs Date Time Temp Pulse Resp B/P Pulse Ox O2 Delivery O2 Flow Rate FiO2 03/02/17 12:00 101 104/61 03/02/17 08:54 100 T-piece 03/02/17 02:10 98 T-piece 5.00 28 03/02/17 00:00 97.6 95 18 112/67 100 03/01/17 21:08 100 T-piece 28 03/01/17 20:30 100 Trach Collar 6.00 T-Piece 03/01/17 20:00 98.2 87 18 114/62 99 03/01/17 16:00 97.3 91 16 100/59 100 I/O 03/01/17 03/01/17 03/01/17 03/02/17 03/02/17 03/02/17 06:59 14:59 22:59 06:59 14:59 22:59 Intake Total 2246 ml 100 ml 563 ml 830 ml Output Total 1350 ml 1000 ml 950 ml 400 ml Balance 896 ml -900 ml -387 ml 430 ml Intake Oral 0 ml IV Total 763 ml 100 ml 160 ml Tube Feeding 688 ml 383 ml 459 ml Packed Cells 500 ml Tube Irrigant 295 ml 180 ml 211 ml Output Urine Total 1350 ml 1000 ml 950 ml 400 ml Tube Feeding Residual Discard 0 ml # Bowel Movements 1 1 Result Diagram: 03/01/17 0619 03/01/17 0619 Procedures 01/02/16 PEG placement 01/02/16 tracheostomy 07/22/2016 Wide excision of sacral skin wound, biopsy of the cavity lining and debridement. PEG tube replacement 07/29/16 Objective Remarks GENERAL: SKIN: Warm and dry. HEAD: Atraumatic. Normocephalic. EYES: Pupils equal and round. No scleral icterus. No injection or drainage. ENT: No nasal bleeding or discharge. Mucous membranes pink and moist. NECK: Trachea midline. No JVD. CARDIOVASCULAR: Regular rate and rhythm. RESPIRATORY: No accessory muscle use. Clear to auscultation. Breath sounds equal bilaterally. GASTROINTESTINAL: Abdomen soft, non-tender, nondistended. Hepatic and splenic margins not palpable. MUSCULOSKELETAL: Extremities without clubbing, cyanosis, or edema. No obvious deformities. NEUROLOGICAL: Awake and alert. No obvious cranial nerve deficits. Motor grossly within normal limits. Five out of 5 muscle strength in the arms and legs. Normal speech. PSYCHIATRIC: Appropriate mood and affect; insight and judgment normal. Laboratory Tests Test 01/05/17 01/06/17 08:35 08:41 Red Blood Count 4.43 MIL/MM3 (4.50-5.90) Hemoglobin 9.9 GM/DL (13.0-17.0) Hematocrit 32.0 % (39.0-51.0) Mean Corpuscular Volume 72.1 FL (80.0-100.0) Mean Corpuscular Hemoglobin 22.3 PG (27.0-34.0) Mean Corpuscular Hemoglobin 30.9 % Concent (32.0-36.0) Red Cell Distribution Width 19.9 % (11.6-17.2) Sodium Level 134 MEQ/L 133 MEQ/L (136-145) (136-145) Random Glucose 136 MG/DL 132 MG/DL (74-106) (74-106) Creatinine 0.59 MG/DL (0.60-1.30) GENERAL: SKIN: Warm and dry. HEAD: Atraumatic. Normocephalic. EYES: Pupils equal and round. No scleral icterus. No injection or drainage. ENT: No nasal bleeding or discharge. Mucous membranes pink and moist. NECK: Trachea midline. No JVD. TRACH. [place] CARDIOVASCULAR: Regular rate and rhythm. RESPIRATORY: No accessory muscle use. Clear to auscultation. Breath sounds equal bilaterally. GASTROINTESTINAL: Abdomen soft, non-tender, nondistended. Hepatic and splenic margins not palpable. MUSCULOSKELETAL: Extremities without clubbing, cyanosis, or edema. No obvious deformities. NEUROLOGICAL: Awake and alert. No obvious cranial nerve deficits. Motor grossly within normal limits. Five out of 5 muscle strength in the arms and legs. Normal speech. PSYCHIATRIC: Appropriate mood and affect; insight and judgment normal. Assessment and Plan Assessment and Plan impression respiratory failure CVA S/P TRACHEOSTOMY HEMATURIA PLAN O2 NEEDED PULM. TOILET FOR CYSTOSCOPY [place] poor Brandon Taylor MD Mar 02, 2017 15:14
[2017-03-02] MEDS: SENNOSIDES SYRUP 8.8 MG/5 ML CUP PEG SCH (16:54)
[2017-03-02] MEDS: PARoxetine HCL SUSP 20 MG/10 ML UDC PEG SCH (18:18)
[2017-03-03] VITALS (8 sets, daily range): BP systolic 96–118; BP diastolic 60–73; PULSE 72–94; RESP 16–19; TEMP 95.5–99.6; O2SAT 98–100
[2017-03-03] MEDS: HYOSCYAMINE 0.125 MG TAB G-TUBE PRN (02:49)
[2017-03-03] MEDS: ACETIC ACID 0.25% SOLN 1000 ML IRR BTL IRRIGATION SCH ×3 (02:50→21:01)
[2017-03-03] MEDS: PIPERACIL-TAZO 3.375 GM PREMIX 50 ML IV SCH ×3 (05:36→18:24)
[2017-03-03 07:19] LABS: AUTOMATED NEUTROPHIL # 3.8 TH/MM3 (1.8-7.7); BASOPHIL # 0.1 TH/MM3 (0-0.2); EOSINOPHIL # 0.2 TH/MM3 (0-0.4); HEMATOCRIT 25.5 % (39.0-51.0); HEMO FLAGS DIFF FINAL; LYMPH % 21.6 % (9.0-44.0); LYMPHOCYTE # 1.2 TH/MM3 (1.0-4.8); MEAN CORPUSCULAR HEMOGLOBIN 23.4 PG (27.0-34.0); MEAN CORPUSCULAR HGB CONC 31.6 % (32.0-36.0); MONO % 6.3 % (0.0-8.0); NEUT % 67.1 % (16.0-70.0); PLATELET COUNT 199 TH/MM3 (150-450); RED BLOOD COUNT 3.45 MIL/MM3 (4.50-5.90); RED CELL DISTRIBUTION WIDTH 19.8 % (11.6-17.2); WHITE BLOOD COUNT 5.7 TH/MM3 (4.0-11.0)
[2017-03-03 07:35] LABS: BICARBONATE 27.5 MEQ/L (21.0-32.0); POTASSIUM 3.8 MEQ/L (3.5-5.1)
[2017-03-03] MEDS: ASCORBIC ACID 500 MG TAB PO SCH (09:00)
[2017-03-03] MEDS: NYSTATIN 100,000 U/GM PWD 15 GM BTL TOPICAL SCH ×2 (09:00→20:37)
[2017-03-03] MEDS: JUVEN POWDER 1 PACK G-TUBE SCH ×2 (09:00→20:36)
[2017-03-03] MEDS: LANSOPRAZOLE SOLUTAB 30 MG TAB NG SCH ×2 (09:00→20:35)
[2017-03-03] MEDS: levETIRAcetam 500 MG/5 ML UDC TUBE SCH ×2 (12:25→20:35)
[2017-03-03] MEDS: FERROUS SULFATE 300 MG /5ML UDC PO SCH (12:25)
[2017-03-03] MEDS: DILTIAZEM HCL 30 MG TAB PEG SCH ×4 (12:25→21:00)
[2017-03-03] MEDS: ARTIFICIAL TEARS OPTH SOLN 15 ML BTL EACH EYE SCH ×2 (12:26→20:37)
[2017-03-03] MEDS: SODIUM CHLORIDE 0.65% NASAL SPRAY 45 ML BTL NASAL SCH ×2 (12:26→20:36)
[2017-03-03] MEDS: BACITRACIN TOP OINT 15 GM TUBE TOP SCH ×2 (12:27→20:37)
[2017-03-03] MEDS: BACITRACIN OINT 0.9 GM PKT TOPICAL SCH (12:29)
--- NOTE | 2017-03-03 13:14 | HHI.PR ---
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 Patient seen today. Mother at the bedside. Concerned about urine output that it is clearing up after the nurses are flushing. Discussed with mother that it was the goal that hopefully hematuria will clear up with flushing when necessary. Patient is due for cystoscopy/biopsy today with Dr. Mejia. As per nursing, full has been flushed this morning hematoria is clearing up and it looks much improved. Tracheostomy in place suction moderate amount of white colored secretions. Nurse replace tracheostomy Shiley. Otherwise patient appears comfortable, awake occasional tracking, does not follow commands. Mother was thankful, all concerns and questions have been answered. Objective Vitals Vital Signs Date Time Temp Pulse Resp B/P Pulse Ox O2 Delivery O2 Flow Rate FiO2 03/03/17 09:23 98 T-piece 5.00 03/03/17 08:00 96.6 86 16 118/73 98 03/03/17 06:23 100 T-piece 6.00 28 03/03/17 00:00 99.6 94 19 115/65 100 03/02/17 21:00 100 Trach Collar 6.00 03/02/17 20:00 99.4 91 19 115/70 100 03/02/17 16:00 98.9 105 19 97/66 98 I/O 03/02/17 03/02/17 03/02/17 03/03/17 03/03/17 03/03/17 07:00 15:00 23:00 07:00 15:00 23:00 Intake Total 830 ml 1011 ml 327 ml 303 ml Output Total 400 ml 1350 ml 600 ml Balance 430 ml 1011 ml -1023 ml -297 ml Intake Oral 0 ml 0 ml IV Total 160 ml 100 ml 100 ml Tube Feeding 459 ml 615 ml 237 ml 173 ml Tube Irrigant 211 ml 296 ml 90 ml 30 ml Output Urine Total 400 ml 1350 ml 600 ml # Bowel Movements 3 Result Diagram: 03/03/17 0630 03/03/17 0630 Imaging Last Impressions Abdomen/Pelvis CT 02/27/17 0000 Signed Impressions: Service Date/Time: February 02:24 - CONCLUSION: 1. Abdominal aortic aneurysm. 2. Bladder mass is noted on the right posteriorly with apparent extravesical extension and clot formation. 3. Left renal cyst. 4. Left lower lobe atelectasis. 5. Large sacral decubitus ulcer with bony destruction and sclerosis of the sacrum mid to left lateral portion in the region of S3 and inferiorly which would suggest chronic osteomyelitis in the appropriate clinical setting. Rajan Granados MD Soft Tissue Ultrasound 02/26/17 0000 Signed Impressions: Service Date/Time: Sunday, February 26, 2017 12:52 - CONCLUSION: 1. Just inferior to the G-tube in the left abdomen, there is a superficial 3.8 x 2.9 0.9 cm complex fluid collection in the subcutaneous tissues. 2. Findings are nonspecific. This could represent a small seroma or abscess. Would consider CT scan of the abdomen without contrast for further evaluation to determine if there is intraperitoneal extension. Bobby Gray MD Gastrostomy Tube Placement 02/25/17 0000 Signed Impressions: Service Date/Time: Saturday, February 25, 2017 14:19 - CONCLUSION: Uncomplicated exchange of gastroenteric feeding tube for gastrostomy tube as above. Positioning confirmed. The tube can be used immediately. Glen Zamora MD Chest X-Ray 02/22/17 0000 Signed Impressions: Service Date/Time: Wednesday, February 22, 2017 13:12 - CONCLUSION: Minimal atelectasis. Otherwise -1 view chest x-ray. Glen Moore MD Tube Change 02/14/17 0000 Signed Impressions: Service Date/Time: Tuesday, February 14, 2017 00:00 - CONCLUSION: Uncomplicated gastrojejunostomy tube exchange as above. Scott Griffin MD Head CT 01/09/17 0000 Signed Impressions: Service Date/Time: December 17:43 - CONCLUSION: 1. No acute hemorrhage or mass effect. 2. 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 3. Atrophy. Gerald Mukherjee MD CT Angiography 01/09/17 0000 Signed Impressions: Service Date/Time: December 17:49 - CONCLUSION: 1. No evidence of pulmonary emboli. 2. Patchy consolidation in both posterior lower lobes right greater than left. This could represent pneumonia. 3. 2 small noncalcified pulmonary nodules which are nonspecific finding. Short-term CT followup is recommended beginning in 6 months with a noncontrast outpatient CT. Gerald Mukherjee MD Tube Check 12/04/16 0000 Signed Impressions: Service Date/Time: Sunday, December 04, 2016 17:58 - CONCLUSION: Uncomplicated tube injection as above. the tube is in good position and functions normally. Moises Ramírez MD Abdomen X-Ray 08/31/16 0000 Signed Impressions: Service Date/Time: Wednesday, August 31, 2016 16:36 - CONCLUSION: 1. No acute findings. Mild constipation. Durga Dotson MD Head Magnetic Resonance Angiography 03/05/16 0000 Signed Impressions: Service Date/Time: Saturday, March 05, 2016 09:26 - CONCLUSION: Persistent high-grade subtotal occlusive stenotic lesions in the distal right vertebral artery and proximal basilar artery with significant improvement in flow and recanalization following initial presentation of thrombosis. Stable interstitial circulation without significant stenosis. Ernesto Kulkarni MD Brain MRI 03/05/16 0000 Signed Impressions: Service Date/Time: Saturday, March 05, 2016 09:26 - CONCLUSION: Evolving brainstem and bilateral occipital lobe infarcts with evidence of subacute hemorrhagic products. There is decreasing restricted diffusion and increasing loss of volume characteristic of a subacute to chronic infarct. No evidence of acute infarct, acute hemorrhage mass or edema. Ernesto Kulkarni MD Neck Magnetic Resonance Angiography 12/22/15 1445 Signed Impressions: Service Date/Time: Tuesday, December 22, 2015 09:22 - CONCLUSION: Variant origin of the left vertebral artery from the aortic arch. No evidence of carotid stenosis. Glen Zamora MD Head/Brain Mag Res Venography 12/22/15 0000 Signed Impressions: Service Date/Time: Tuesday, December 22, 2015 09:22 - CONCLUSION: Normal MRV. Jonel Jones Jr., MD Objective Remarks GENERAL: Nonverbal, in no apparent distress. SKIN: Warm and dry. Right 1st toe covered with dsg, s/p ingrown toe nail removal. HEENT: Normocephalic. Pupils nonicteric. Nose without bleeding. NECK: Trachea midline.T-tube in place, site clean, dry, intact. CARDIOVASCULAR: Regular rate and rhythm without murmurs, gallops, or rubs. RESPIRATORY: Coarse breath sounds. Secretions white moderately thick, small amount GASTROINTESTINAL: Abdomen soft, non-tender, nondistended. Bowel Sounds hypoactive. GJ tube in place, below incision site area slight erythema, no drainage noted. : Lopez catheter in place, notable gross hematuria MUSCULOSKELETAL: Extremities without clubbing, cyanosis, Bilat foot +1 edema. NEUROLOGICAL: Awake and alert Not following commands. Nonverbal. Procedures 07/22/2016 Wide excision of sacral skin wound, biopsy of the cavity lining and debridement. PEG removal and Gj tube placement 07/29/16 VAC changes- M-W-F 10/23/16, 11/18, 12/31- GJ tube replacement 01/02/16 PEG placement 01/02/16 tracheostomy 02/25/17 PEG replacement Date of Insertion: Feb 10, 2017 A/P Problem List: (1) CVA (cerebral vascular accident) ICD Code: I63.9 Status: Acute (2) A-fib ICD Code: I48.91 Status: Chronic (3) DM (diabetes mellitus) ICD Code: E11.9 Status: Chronic Assessment and Plan 60 year-old male with past medical history of paroxysmal A. fib, hypertension, stage III non-Hodgkin's lymphoma status post chemotherapy who came into the hospital with altered mental status. Gross Hematuria - Lopez change - Hematuria continues - Hold Heparin, hold aspirin - Restart once cleared with - Urology Consult appreciated. Recommends flushing Lopez catheter. - CT of the abdomen showed bladder mass right posteriorly with apparent extravesical extension and clot formation. - Urology spoke with family member, daughter, states that he's not recommending biopsy of the bladder mass. However daughter insisted on biopsy. - H&H dropped to 7.4/24.3. Transfuse 1 unit packed RBCs. - Repeat CBC 8.2/25.5. Continue to monitor. Will Transfuse as needed. - Spoke with Dr. Sewell, plan for cystoscopy biopsy. Continue to flush lopez catheter PRN. - Hematuria clearing up after being flushed this morning by RN Abdominal wound/ lesion - Below the GJ incision site - Wound Care consulted and recommends leaving open to air, imaging soft tissue ultrasound. - Bacitracin for now - Ultrasound soft tissue surrounding area for possible fluid collection that would need I & D. - Soft tissue ultrasound showed 1. Just inferior to that she tube in the left abdomen, there is a superficial 3.8 x 2.9 0.9 cm complex fluid collection in the subcutaneous tissue. 2. Findings are nonspecific. This could represent a small seroma or abscess. Would consider CT scan of the abdomen with contrast for further evaluation and determine if there is an intraperitoneal extension. - CT of the abdomen showed 1. Abdominal aortic aneurysm. 2. Bladder mass is noted on the right posteriorly with apparent extravesical extension and clot formation. 3. Left renal cyst. 4. Left lower lobe atelectasis. 5. Large sacral decubitus ulcer with bony disruption and sclerosis of the sacrum mid to left lateral portion in the region of S3 and inferiorly which would suggest chronic osteomyelitis in the appropriate clinical setting. - No intraperitoneal extension noted for the wound, will possibly need bedside I&D. Wound consult. 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 Intermittently tracks with eyes. Sister at bedside. - Continue Keppra 500mg BID for seizure prophylaxis. - PT/OT signed off as patient is unable to participate. - On Paxil 20 by mouth daily for depression. - On acetaminophen with codeine for pain scale of 2-10. - Morphine 1 mg every 24 hours when necessary for dressing change Chronic respiratory failure secondary to CVA - Status post tracheostomy. Continue pulmonary toilet and bronchodilators as needed. Continue trach care, suctioning. Levsin as needed. - Trach changed to size #6 XLT on 01/09 - Duo nebs every 6 hours - Pulmonary currently following, appreciate assistance. - 01/09 CTA chest: No PE, bilateral lower lobe infiltrates. 4 mm right upper lobe/5 mm right middle lobe nodule. - CXR 02/22/17 reveals minimal atelectasis Right hallux ingrown toenail, paronychia- medial aspect 02/23/17 new area of paronychia right hallux ingrown toe nail lateral aspect - Galley Worker has seen patient. I & D with partial nail avulsion performed at bedside 02/06/17. - Seen by podiatry. Plan is to aggressively cut the nail back. - Resolved Atrial fibrillation, controlled Hypertension Dyslipidemia - Continue rate control with Cardizem and metoprolol. - Echocardiogram in November 2015 shows preserved ejection fraction. Coumadin discontinued secondary to bleeding. - Continue aspirin and prophylactic heparin dose. History of non-Hodgkin's lymphoma - Status post brain biopsy on December 13 by neurosurgery. Pathology consistent with acute infarct without evidence of lymphoma. Oncology has signed off. Diabetes mellitus Type 2 - Hemoglobin A1c is 5.5. - Fingersticks have been stable and were DC'd 02/01/17 Decubitus ulcer stage IV - Continue wound care, twice-daily dressing changes. Wound care recommendations last updated 12/12/16. Continue pressure relief measures including turning and positioning. Patient's family has declined a diverting colostomy. Previous Wound culture growing Klebsiella and Enterococcus Faecalis. Previously on Augmentin. Status post wide excision of sacral skin and biopsy of the cavity lining with debridement on 07/22/16. - Wound care last saw patient on 01/17/17, no new recommendations continue packing with Betadine moistened rolled Janis and covered with ABD pad and paper tape to secure. - Continue to monitor. Continue pressure-relief. - Morphine 1 mg every 24 hours when necessary for dressing change Protein calorie malnutrition Gastroesophageal reflux disease Gastric ulcer, reflux esophagitis Diarrhea, negative for C. difficile. Improved - EGD on 07/30/16 showed gastric ulcers. - On Prevacid 30 mg Q12, on tube feeds(Jevity 1.5 at 55 ml/hr) - Continue bowel regimen with hold parameters, Lactinex and Imodium. - G/J tube clogged, IR consulted to evaluate. Replaced on 02/25/17 - Reiterated proper G/J tube care and flush procedures. Discuss and explained with family. UTI pseudomonas aeruginosa Recurrent - Previous Repeat Ucx 08/28/16 negative. - 02/22/17 UA consistent with UTI - cultures pseudomonas, currently on Rocephin will change to cefepime since last culture was also Pseudomonas and was sensitive to cefepime. - Sensitivities came back, was switched over to Zosyn as cultures are not sensitive to cefepime. Klebsiella/Pseudomonas/staph aureus HCAP PSAE UTI - S/p Cefepime. Monitor for signs of infections. - strep pneumonia and Legionella urinary Ag is negative - C-diff PCR negative on 01/13 - 01/09 BC : Staph Epi, Urine cx: Pseudomonas, Sputum cx: Pseudomonas, kleb, Staph. - Patient was pancultured on 01/19 (Blood, sputum, urine) NGTD in urine and blood. Sputum + for pseudomonas. Patient has a placement for [facility]. Plan for discharge was held for now in lieu of ongoing hematuria, urology consult for hematuria. Plan for biopsy cystoscopy, Friday03/03/17 DVT prophylaxis: SCDs. Heparin 5,000 units sq Q8hr (Held) - due to hematuria. Discussed with pt's family members, nursing, and Dr. Buck Discharge Planning Case management involved with discharge planning. As per case management's note , we'll speak with long-term care case management Ismael. Ismael will need to speak to patient's family and will follow up with [facility] in [facility] as the patient had placement in the said facility. Problem Qualifiers (1) CVA (cerebral vascular accident): (2) DM (diabetes mellitus): Kurt Rosa Mar 03, 2017 13:14 (2) DM (diabetes mellitus): Kurt Rosa Mar 03, 2017 13:14
[2017-03-03] MEDS: SENNOSIDES SYRUP 8.8 MG/5 ML CUP PEG SCH (16:00)
--- NOTE | 2017-03-03 16:01 | HHI.PR ---
Subjective Remarks ass OPENS EYES NO DISTRESS o2 sat 95% feeding tube replaced Objective Vital Signs Date Time Temp Pulse Resp B/P Pulse Ox O2 Delivery O2 Flow Rate FiO2 03/03/17 12:00 96.5 89 17 114/68 98 03/03/17 09:23 98 T-piece 5.00 03/03/17 08:00 96.6 86 16 118/73 98 03/03/17 06:23 100 T-piece 6.00 28 03/03/17 00:00 99.6 94 19 115/65 100 03/02/17 21:00 100 Trach Collar 6.00 03/02/17 20:00 99.4 91 19 115/70 100 I/O 03/02/17 03/02/17 03/02/17 03/03/17 03/03/17 03/03/17 06:59 14:59 22:59 06:59 14:59 22:59 Intake Total 830 ml 1011 ml 327 ml 303 ml 0 ml Output Total 400 ml 1350 ml 600 ml 300 ml Balance 430 ml 1011 ml -1023 ml -297 ml -300 ml Intake Oral 0 ml 0 ml 0 ml IV Total 160 ml 100 ml 100 ml Tube Feeding 459 ml 615 ml 237 ml 173 ml Tube Irrigant 211 ml 296 ml 90 ml 30 ml Output Urine Total 400 ml 1350 ml 600 ml 300 ml # Bowel Movements 3 1 Result Diagram: 03/03/17 0630 03/03/17 0630 Procedures 01/02/16 PEG placement 01/02/16 tracheostomy 07/22/2016 Wide excision of sacral skin wound, biopsy of the cavity lining and debridement. PEG tube replacement 07/29/16 Objective Remarks GENERAL: SKIN: Warm and dry. HEAD: Atraumatic. Normocephalic. EYES: Pupils equal and round. No scleral icterus. No injection or drainage. ENT: No nasal bleeding or discharge. Mucous membranes pink and moist. NECK: Trachea midline. No JVD. CARDIOVASCULAR: Regular rate and rhythm. RESPIRATORY: No accessory muscle use. Clear to auscultation. Breath sounds equal bilaterally. GASTROINTESTINAL: Abdomen soft, non-tender, nondistended. Hepatic and splenic margins not palpable. MUSCULOSKELETAL: Extremities without clubbing, cyanosis, or edema. No obvious deformities. NEUROLOGICAL: Awake and alert. No obvious cranial nerve deficits. Motor grossly within normal limits. Five out of 5 muscle strength in the arms and legs. Normal speech. PSYCHIATRIC: Appropriate mood and affect; insight and judgment normal. Laboratory Tests Test 01/05/17 01/06/17 08:35 08:41 Red Blood Count 4.43 MIL/MM3 (4.50-5.90) Hemoglobin 9.9 GM/DL (13.0-17.0) Hematocrit 32.0 % (39.0-51.0) Mean Corpuscular Volume 72.1 FL (80.0-100.0) Mean Corpuscular Hemoglobin 22.3 PG (27.0-34.0) Mean Corpuscular Hemoglobin 30.9 % Concent (32.0-36.0) Red Cell Distribution Width 19.9 % (11.6-17.2) Sodium Level 134 MEQ/L 133 MEQ/L (136-145) (136-145) Random Glucose 136 MG/DL 132 MG/DL (74-106) (74-106) Creatinine 0.59 MG/DL (0.60-1.30) GENERAL: SKIN: Warm and dry. HEAD: Atraumatic. Normocephalic. EYES: Pupils equal and round. No scleral icterus. No injection or drainage. ENT: No nasal bleeding or discharge. Mucous membranes pink and moist. NECK: Trachea midline. No JVD. TRACH. [place] CARDIOVASCULAR: Regular rate and rhythm. RESPIRATORY: No accessory muscle use. Clear to auscultation. Breath sounds equal bilaterally. GASTROINTESTINAL: Abdomen soft, non-tender, nondistended. Hepatic and splenic margins not palpable. MUSCULOSKELETAL: Extremities without clubbing, cyanosis, or edema. No obvious deformities. NEUROLOGICAL: Awake and alert. No obvious cranial nerve deficits. Motor grossly within normal limits. Five out of 5 muscle strength in the arms and legs. Normal speech. PSYCHIATRIC: Appropriate mood and affect; insight and judgment normal. Assessment and Plan Assessment and Plan impression respiratory failure CVA S/P TRACHEOSTOMY HEMATURIA PLAN O2 NEEDED PULM. TOILET FOR CYSTOSCOPY TODAY FOR CYSTOSCOPY Savannah Brandon Moy MD Mar 03, 2017 16:01
--- NOTE | 2017-03-03 16:01 | PD.OP ---
Operative Report Date of Surgery: Mar 03, 2017 Preoperative Diagnosis: (1) Bladder mass Postoperative Diagnosis: (1) Bladder mass Procedure: Cystoscopy and palliative transurethral resection of bladder tumor greater than 5 cm originating from right bladder wall Anesthesia: General Surgeon: Thomas Sewell Mission Assessment Specialist(s): None Operation and Findings: Indication for procedure: Case of a 61-year-old gentleman who recently developed new onset gross hematuria. CT scan was performed which demonstrated a large right sided bladder mass with extravesical extension. Patient presents now for cystoscopy with transurethral biopsy of the tumor mass. Operative procedure in detail: Patient was brought to the cystoscopy suite and placed supine on the cystoscopy table. He was next placed under general endotracheal anesthesia. He was then repositioned in the dorsolithotomy position and prepped and draped in normal sterile fashion. After appropriate timeout was undertaken I proceeded with cystoscopic evaluation utilizing the rigid cystoscope with the 20 Sudanese sheath and 30 lens. The urethra was patent without stricture formation. The prostatic urethra was not obstructing. Further passive cystoscope within urinary bladder demonstrated an irregular bladder mass involving the right wall of the bladder just superior to the right ureteral orifice and was greater than 5 cm in size. The right orifice could be seen effluxing small amounts of urine. The left ureteral orifice was in correct position effluxing clear yellow urine. Also noted was a large organized clot. The cystoscope was exchanged for the resectoscope with the 24 Sudanese cutting loop and the large blood clot was broken up using the loop and subsequently removed using the Ell evacuator. I next proceeded with the palliative resection of the bladder mass for hemostasis. Next a 20 Sudanese 10 cc Arevalo was placed and connected to gravity drainage. The patient tolerated the procedures without complications and was transferred to the PACU in satisfactory condition. Thomas Sewell MD Mar 03, 2017 16:01
[2017-03-03] MEDS: PARoxetine HCL SUSP 20 MG/10 ML UDC PEG SCH (18:23)
[2017-03-04] VITALS (7 sets, daily range): BP systolic 103–117; BP diastolic 62–73; PULSE 87–94; RESP 15–18; TEMP 95.9–98.1; O2SAT 98–100
[2017-03-04] MEDS: PIPERACIL-TAZO 3.375 GM PREMIX 50 ML IV SCH ×5 (00:20→23:22)
[2017-03-04] MEDS: ACETIC ACID 0.25% SOLN 1000 ML IRR BTL IRRIGATION SCH ×3 (05:56→21:09)
[2017-03-04] MEDS: DILTIAZEM HCL 30 MG TAB PEG SCH ×4 (08:34→21:06)
[2017-03-04] MEDS: LANSOPRAZOLE SOLUTAB 30 MG TAB NG SCH ×2 (08:35→21:06)
[2017-03-04] MEDS: ASCORBIC ACID 500 MG TAB PO SCH (08:35)
[2017-03-04] MEDS: FERROUS SULFATE 300 MG /5ML UDC PO SCH (08:35)
[2017-03-04] MEDS: levETIRAcetam 500 MG/5 ML UDC TUBE SCH ×2 (08:36→21:06)
[2017-03-04] MEDS: BACITRACIN TOP OINT 15 GM TUBE TOP SCH ×2 (08:37→21:00)
[2017-03-04] MEDS: ARTIFICIAL TEARS OPTH SOLN 15 ML BTL EACH EYE SCH ×2 (08:38→21:07)
[2017-03-04] MEDS: BACITRACIN OINT 0.9 GM PKT TOPICAL SCH (08:38)
[2017-03-04] MEDS: SODIUM CHLORIDE 0.65% NASAL SPRAY 45 ML BTL NASAL SCH ×2 (08:38→21:07)
[2017-03-04] MEDS: NYSTATIN 100,000 U/GM PWD 15 GM BTL TOPICAL SCH ×2 (08:38→21:00)
[2017-03-04] MEDS: JUVEN POWDER 1 PACK G-TUBE SCH ×2 (09:00→21:00)
--- NOTE | 2017-03-04 11:06 | HHI.PR ---
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 Patient seen and examined today. Mother at the bedside. Patient s/ p cystoscopy and palliative transurethral resection of bladder tumor greater than 5 cm originating from the right bladder wall. Per nursing, no issues overnight. Patient with 3 soft stools yesterday. Hematuria is improving. Patient awake. Does not follow commands. Objective Vitals Vital Signs Date Time Temp Pulse Resp B/P Pulse Ox O2 Delivery O2 Flow Rate FiO2 03/04/17 08:00 96.8 90 15 110/67 100 03/04/17 00:00 98.1 91 18 107/62 100 03/03/17 20:00 96.2 86 18 96/60 100 03/03/17 18:16 100 T-piece 6.00 28 03/03/17 17:00 95.5 72 17 105/70 100 03/03/17 16:45 73 14 95/62 98 03/03/17 16:30 78 14 97/59 98 03/03/17 16:15 73 14 92/57 97 03/03/17 16:07 97.4 76 14 96/62 94 T-Piece 6 03/03/17 12:35 T-Piece 6.00 Humidified 03/03/17 12:00 96.5 89 17 114/68 98 I/O 03/03/17 03/03/17 03/03/17 03/04/17 03/04/17 03/04/17 06:59 14:59 22:59 06:59 14:59 22:59 Intake Total 303 ml 0 ml 300 ml 727 ml Output Total 600 ml 300 ml 275 ml 650 ml Balance -297 ml -300 ml 25 ml 77 ml Intake Oral 0 ml 0 ml 0 ml 0 ml IV Total 100 ml 727 ml Tube Feeding 173 ml Tube Irrigant 30 ml Other 300 ml Output Urine Total 600 ml 300 ml 275 ml 650 ml # Bowel Movements 1 0 1 Result Diagram: 03/03/17 0630 03/03/17 0630 Imaging Last Impressions Abdomen/Pelvis CT 02/27/17 0000 Signed Impressions: Service Date/Time: February 02:24 - CONCLUSION: 1. Abdominal aortic aneurysm. 2. Bladder mass is noted on the right posteriorly with apparent extravesical extension and clot formation. 3. Left renal cyst. 4. Left lower lobe atelectasis. 5. Large sacral decubitus ulcer with bony destruction and sclerosis of the sacrum mid to left lateral portion in the region of S3 and inferiorly which would suggest chronic osteomyelitis in the appropriate clinical setting. Rajan Granados MD Soft Tissue Ultrasound 02/26/17 0000 Signed Impressions: Service Date/Time: Sunday, February 26, 2017 12:52 - CONCLUSION: 1. Just inferior to the G-tube in the left abdomen, there is a superficial 3.8 x 2.9 0.9 cm complex fluid collection in the subcutaneous tissues. 2. Findings are nonspecific. This could represent a small seroma or abscess. Would consider CT scan of the abdomen without contrast for further evaluation to determine if there is intraperitoneal extension. Bobby Gray MD Gastrostomy Tube Placement 02/25/17 0000 Signed Impressions: Service Date/Time: Saturday, February 25, 2017 14:19 - CONCLUSION: Uncomplicated exchange of gastroenteric feeding tube for gastrostomy tube as above. Positioning confirmed. The tube can be used immediately. Glen Zamora MD Chest X-Ray 02/22/17 0000 Signed Impressions: Service Date/Time: Wednesday, February 22, 2017 13:12 - CONCLUSION: Minimal atelectasis. Otherwise -1 view chest x-ray. Glen Moore MD Tube Change 02/14/17 0000 Signed Impressions: Service Date/Time: Tuesday, February 14, 2017 00:00 - CONCLUSION: Uncomplicated gastrojejunostomy tube exchange as above. Scott Griffin MD Head CT 01/09/17 0000 Signed Impressions: Service Date/Time: December 17:43 - CONCLUSION: 1. No acute hemorrhage or mass effect. 2. 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 3. Atrophy. Gerald Mukherjee MD CT Angiography 01/09/17 0000 Signed Impressions: Service Date/Time: December 17:49 - CONCLUSION: 1. No evidence of pulmonary emboli. 2. Patchy consolidation in both posterior lower lobes right greater than left. This could represent pneumonia. 3. 2 small noncalcified pulmonary nodules which are nonspecific finding. Short-term CT followup is recommended beginning in 6 months with a noncontrast outpatient CT. Gerald Mukherjee MD Tube Check 12/04/16 0000 Signed Impressions: Service Date/Time: Sunday, December 04, 2016 17:58 - CONCLUSION: Uncomplicated tube injection as above. the tube is in good position and functions normally. Moises Ramírez MD Abdomen X-Ray 08/31/16 0000 Signed Impressions: Service Date/Time: Wednesday, August 31, 2016 16:36 - CONCLUSION: 1. No acute findings. Mild constipation. Durga Dotson MD Head Magnetic Resonance Angiography 03/05/16 0000 Signed Impressions: Service Date/Time: Saturday, March 05, 2016 09:26 - CONCLUSION: Persistent high-grade subtotal occlusive stenotic lesions in the distal right vertebral artery and proximal basilar artery with significant improvement in flow and recanalization following initial presentation of thrombosis. Stable interstitial circulation without significant stenosis. Ernesto Kulkarni MD Brain MRI 03/05/16 0000 Signed Impressions: Service Date/Time: Saturday, March 05, 2016 09:26 - CONCLUSION: Evolving brainstem and bilateral occipital lobe infarcts with evidence of subacute hemorrhagic products. There is decreasing restricted diffusion and increasing loss of volume characteristic of a subacute to chronic infarct. No evidence of acute infarct, acute hemorrhage mass or edema. Ernesto Kulkarni MD Neck Magnetic Resonance Angiography 12/22/15 1445 Signed Impressions: Service Date/Time: Tuesday, December 22, 2015 09:22 - CONCLUSION: Variant origin of the left vertebral artery from the aortic arch. No evidence of carotid stenosis. Glen Zamora MD Head/Brain Mag Res Venography 12/22/15 0000 Signed Impressions: Service Date/Time: Tuesday, December 22, 2015 09:22 - CONCLUSION: Normal MRV. Jonel Jones Jr., MD Objective Remarks GENERAL: WDWN male, in no apparent distress. Nonverbal. Mother is at the bedside. SKIN: Warm and dry. Right 1st toe covered with dsg, s/p ingrown toe nail removal. HEENT: Normocephalic. Pupils nonicteric. Nose without bleeding. NECK: Trachea midline. T-tube in place, site clean, dry, intact. CARDIOVASCULAR: Regular rate and rhythm without murmurs, gallops, or rubs. RESPIRATORY: Coarse breath sounds. Secretions white moderately thick, small amount. GASTROINTESTINAL: Abdomen soft, non-tender, nondistended. BS hypoactive. GJ tube in place, below incision site area slight erythema, no drainage noted. Discussed with nursing staff area is improved from yesterday. : Lopez catheter in place, no gross hematuria noted. MUSCULOSKELETAL: Extremities without clubbing, cyanosis, Bilateral feet +1 edema. NEUROLOGICAL: Awake. Patient not following commands. Nonverbal. Procedures 07/22/2016 Wide excision of sacral skin wound, biopsy of the cavity lining and debridement. PEG removal and Gj tube placement 07/29/16 VAC changes- M-W-F 10/23/16, 11/18, 12/31- GJ tube replacement 01/02/16 PEG placement 01/02/16 tracheostomy 02/25/17 PEG replacement 03/03/17 Cystoscopy and palliative transurethral resection of bladder tumor greater than 5cm originating from the right bladder wall Medications and IVs Current Medications Medications (Trade) Dose Ordered Sig/Junior Route Start Time Stop Time Status Last Admin (NS Flush) 2 ml UNSCH PRN IVF 12/21/15 06:00 09/28/16 21:18 (Keppra Liq) 500 mg Q12HR TUBE 12/27/15 21:00 03/04/17 08:36 (Tylenol 650 Mg/ 20 ml Liq) 650 mg Q6H PRN TUBE 12/30/15 15:15 01/18/17 21:34 (Mycostatin Powder) 1 applic Q12HR TOPICAL 01/08/16 21:00 03/04/17 08:38 (Pill Splitter) 1 ea UNSCH PRN OTHER 01/14/16 08:30 (Acetic Acid 0.25% Irr Btl) 10 ml Q8HR IRRIGATION 02/05/16 16:00 03/04/17 05:56 (Paxil Liq) 20 mg DAILY@1900 PEG 03/12/16 19:00 03/03/17 18:23 (Levsin) 0.25 mg Q4H PRN G-TUBE 04/11/16 10:30 03/03/17 02:49 (Zofran Inj) 4 mg Q6HR PRN IV PUSH 04/14/16 19:45 08/10/16 10:16 (Aspirin) 325 mg DAILY TUBE 05/27/16 11:40 Hold 02/25/17 08:28 (Heparin Inj) 5,000 units Q8HR SQ 06/11/16 14:00 Hold 02/25/17 13:23 (Baciguent Oint) 1 applic BID TOP 07/20/16 10:00 03/04/17 08:37 ([place]) 1 spray BID NASAL 08/01/16 21:00 03/04/17 08:38 (Tears Naturale Opth Soln) 1 drop BID EACH EYE 09/05/16 21:00 03/04/17 08:38 (Morphine Inj) 1 mg Q24H PRN IV PUSH 09/17/16 14:30 10/22/16 02:00 (Dulcolax Supp) 10 mg DAILY PRN RECTAL 09/26/16 15:30 12/08/16 09:17 (Tylenol - Codeine 120-12 Liq) 5 ml Q4H PRN G-TUBE 12/27/16 15:30 02/28/17 11:38 (Imodium Liq) 2 mg Q6H PRN PEG 12/27/16 15:30 01/24/17 20:05 (Milk Of Magnesia Liq) 30 ml DAILY PRN PEG 12/27/16 15:30 02/11/17 08:46 (Milk Of Magnesia Liq) 30 ml DAILY PEG 12/28/16 09:00 Hold 01/19/17 08:44 (Senna Liq) 8.8 mg DAILY@1600 PEG 12/27/16 16:00 03/02/17 16:54 (Lactulose Liq) 30 ml DAILY PRN PEG 12/27/16 15:30 (Cardizem) 30 mg QID PEG 01/09/17 18:00 03/04/17 08:34 (D50w (Vial) Inj) 50 ml UNSCH PRN IV 01/09/17 16:00 (Glucagon Inj) 1 mg UNSCH PRN OTHER 01/09/17 16:00 (Prevacid Odt) 30 mg BID NG 01/26/17 21:00 03/04/17 08:35 (Ashish Powder) 1 pack BID G-TUBE 02/10/17 21:00 03/03/17 20:36 (Ferrous Sulfate Liq) 300 mg DAILY PO 02/14/17 09:00 03/04/17 08:35 (Vitamin C) 1,000 mg DAILY PO 02/14/17 09:00 03/04/17 08:35 Bacitracin 0.9 gm 0.9 gm DAILY TOPICAL 02/25/17 09:00 03/04/17 08:38 (Zosyn 3.375 Gm Premix) 50 ml @ 100 mls/hr Q6H IV 02/26/17 11:00 03/05/17 10:59 03/04/17 05:56 Miscellaneous Information ALL NURSING DEPARTME... UNSCH PRN .XX 03/03/17 16:07 03/04/17 16:06 Date of Insertion: Feb 10, 2017 A/P Problem List: (1) CVA (cerebral vascular accident) ICD Code: I63.9 Status: Acute (2) A-fib ICD Code: I48.91 Status: Chronic (3) DM (diabetes mellitus) ICD Code: E11.9 Status: Chronic Assessment and Plan 60 year-old male with past medical history of paroxysmal A. fib, hypertension, stage III non-Hodgkin's lymphoma status post chemotherapy who came into the hospital with altered mental status. Gross Hematuria - Lopez change following cystoscopy procedure yesterday - Hematuria much improved - Hold Heparin, hold aspirin - Restart once cleared with - Urology Consult appreciated. Recommends flushing Lopez catheter. - CT of the abdomen showed bladder mass right posteriorly with apparent extravesical extension and clot formation. - Urology spoke with family member, daughter, states that he's not recommending biopsy of the bladder mass. However daughter insisted on biopsy. Patient s/p cystoscopy and palliative transurethral resection of bladder tumor greater than 5 cm originating from right bladder wall performed by Dr. Sewell. Await biopsy results. - H&H dropped to 7.4/24.3.. Improved status post transfusion. Today's labs pending. - Continue to flush lopez catheter PRN. Abdominal wound/ lesion - Below the GJ incision site. Improving - Wound Care consulted and recommends leaving open to air, imaging soft tissue ultrasound. - Bacitracin for now - Ultrasound soft tissue surrounding area for possible fluid collection that would need I & D. - Soft tissue ultrasound showed 1. Just inferior to that she tube in the left abdomen, there is a superficial 3.8 x 2.9 0.9 cm complex fluid collection in the subcutaneous tissue. 2. Findings are nonspecific. This could represent a small seroma or abscess. Would consider CT scan of the abdomen with contrast for further evaluation and determine if there is an intraperitoneal extension. - CT of the abdomen showed 1. Abdominal aortic aneurysm. 2. Bladder mass is noted on the right posteriorly with apparent extravesical extension and clot formation. 3. Left renal cyst. 4. Left lower lobe atelectasis. 5. Large sacral decubitus ulcer with bony disruption and sclerosis of the sacrum mid to left lateral portion in the region of S3 and inferiorly which would suggest chronic osteomyelitis in the appropriate clinical setting. - No intraperitoneal extension noted for the wound, will possibly need bedside I&D. Wound consult. 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 Intermittently tracks with eyes. - Continue Keppra 500mg BID for seizure prophylaxis. Check Keppra level. - PT/OT signed off as patient is unable to participate. - On Paxil 20 by mouth daily for depression. - On acetaminophen with codeine for pain scale of 2-10. - Morphine 1 mg every 24 hours when necessary for dressing change Chronic respiratory failure secondary to CVA - Status post tracheostomy. Continue pulmonary toilet and bronchodilators as needed. Continue trach care, suctioning. Levsin as needed. - Trach changed to size #6 XLT on 01/09 - Duo nebs every 6 hours - Pulmonary currently following, appreciate assistance. - 01/09 CTA chest: No PE, bilateral lower lobe infiltrates. 4 mm right upper lobe/5 mm right middle lobe nodule. - CXR 02/22/17 reveals minimal atelectasis Right hallux ingrown toenail, paronychia- medial aspect 02/23/17 new area of paronychia right hallux ingrown toe nail lateral aspect - Services Clerk has seen patient. I & D with partial nail avulsion performed at bedside 02/06/17. - Seen by podiatry. Plan is to aggressively cut the nail back. - Resolved Atrial fibrillation, controlled Hypertension Dyslipidemia - Continue rate control with Cardizem and metoprolol. - Echocardiogram in November 2015 shows preserved ejection fraction. Coumadin discontinued secondary to bleeding. - Continue aspirin and prophylactic heparin dose. History of non-Hodgkin's lymphoma - Status post brain biopsy on December 13 by neurosurgery. Pathology consistent with acute infarct without evidence of lymphoma. Oncology has signed off. Diabetes mellitus Type 2 - Hemoglobin A1c is 5.5. - Fingersticks have been stable and were DC'd 02/01/17 Decubitus ulcer stage IV - Continue wound care, twice-daily dressing changes. Wound care recommendations last updated 12/12/16. Continue pressure relief measures including turning and positioning. Patient's family has declined a diverting colostomy. Previous Wound culture growing Klebsiella and Enterococcus Faecalis. Previously on Augmentin. Status post wide excision of sacral skin and biopsy of the cavity lining with debridement on 07/22/16. - Wound care last saw patient on 01/17/17, no new recommendations continue packing with Betadine moistened rolled Janis and covered with ABD pad and paper tape to secure. - Continue to monitor. Continue pressure-relief. - Morphine 1 mg every 24 hours when necessary for dressing change Protein calorie malnutrition Gastroesophageal reflux disease Gastric ulcer, reflux esophagitis Diarrhea, negative for C. difficile. Improved - EGD on 07/30/16 showed gastric ulcers. - On Prevacid 30 mg Q12, on tube feeds(Jevity 1.5 at 55 ml/hr) - Continue bowel regimen with hold parameters, Lactinex and Imodium. - G/J tube clogged, IR consulted to evaluate. Replaced on 02/25/17 - Reiterated proper G/J tube care and flush procedures. Discuss and explained with family. UTI pseudomonas aeruginosa Recurrent - Previous Repeat Ucx 08/28/16 negative. - 02/22/17 UA consistent with UTI - cultures pseudomonas, currently on Rocephin will change to cefepime since last culture was also Pseudomonas and was sensitive to cefepime. - Sensitivities came back, was switched over to Zosyn as cultures are not sensitive to cefepime. Klebsiella/Pseudomonas/staph aureus HCAP PSAE UTI - S/p Cefepime. Monitor for signs of infections. - strep pneumonia and Legionella urinary Ag is negative - C-diff PCR negative on 01/13 - 01/09 BC : Staph Epi, Urine cx: Pseudomonas, Sputum cx: Pseudomonas, kleb, Staph. - Patient was pancultured on 01/19 (Blood, sputum, urine) NGTD in urine and blood. Sputum + for pseudomonas. Patient has a placement for [place]. Plan for discharge was held for now in lieu of ongoing hematuria, urology consult for hematuria. Plan for biopsy cystoscopy, Friday03/03/17 DVT prophylaxis: SCDs. Heparin 5,000 units sq Q8hr (Held) - due to hematuria. Discussed with pt's family members, nursing, and Dr. Buck Problem Qualifiers (1) CVA (cerebral vascular accident): (2) DM (diabetes mellitus): Jaz Peraza Mar 04, 2017 11:06
[2017-03-04] MEDS: HYOSCYAMINE 0.125 MG TAB G-TUBE PRN (15:49)
[2017-03-04] MEDS: SENNOSIDES SYRUP 8.8 MG/5 ML CUP PEG SCH (16:00)
--- NOTE | 2017-03-04 18:01 | HHI.PR ---
Subjective Remarks ass OPENS EYES NO DISTRESS o2 sat 95% cystoscopy and biopsy done Objective Vital Signs Date Time Temp Pulse Resp B/P Pulse Ox O2 Delivery O2 Flow Rate FiO2 03/04/17 16:00 95.9 90 17 117/73 100 03/04/17 14:00 98 T-piece 5.00 28 03/04/17 12:00 97.0 87 16 103/64 100 03/04/17 08:00 96.8 90 15 110/67 100 03/04/17 00:00 98.1 91 18 107/62 100 03/03/17 20:00 96.2 86 18 96/60 100 03/03/17 18:16 100 T-piece 6.00 28 I/O 03/03/17 03/03/17 03/03/17 03/04/17 03/04/17 03/04/17 06:59 14:59 22:59 06:59 14:59 22:59 Intake Total 303 ml 0 ml 300 ml 727 ml 0 ml 812 ml Output Total 600 ml 300 ml 275 ml 650 ml 550 ml Balance -297 ml -300 ml 25 ml 77 ml -550 ml 812 ml Intake Oral 0 ml 0 ml 0 ml 0 ml 0 ml IV Total 100 ml 727 ml 50 ml Tube Feeding 173 ml 496 ml Tube Irrigant 30 ml Other 300 ml 266 ml Output Urine Total 600 ml 300 ml 275 ml 650 ml 550 ml # Bowel Movements 1 0 1 2 Result Diagram: 03/03/17 0630 03/03/17 0630 Procedures 01/02/16 PEG placement 01/02/16 tracheostomy 07/22/2016 Wide excision of sacral skin wound, biopsy of the cavity lining and debridement. PEG tube replacement 07/29/16 Objective Remarks GENERAL: SKIN: Warm and dry. HEAD: Atraumatic. Normocephalic. EYES: Pupils equal and round. No scleral icterus. No injection or drainage. ENT: No nasal bleeding or discharge. Mucous membranes pink and moist. NECK: Trachea midline. No JVD. CARDIOVASCULAR: Regular rate and rhythm. RESPIRATORY: No accessory muscle use. Clear to auscultation. Breath sounds equal bilaterally. GASTROINTESTINAL: Abdomen soft, non-tender, nondistended. Hepatic and splenic margins not palpable. MUSCULOSKELETAL: Extremities without clubbing, cyanosis, or edema. No obvious deformities. NEUROLOGICAL: Awake and alert. No obvious cranial nerve deficits. Motor grossly within normal limits. Five out of 5 muscle strength in the arms and legs. Normal speech. PSYCHIATRIC: Appropriate mood and affect; insight and judgment normal. Laboratory Tests Test 01/05/17 01/06/17 08:35 08:41 Red Blood Count 4.43 MIL/MM3 (4.50-5.90) Hemoglobin 9.9 GM/DL (13.0-17.0) Hematocrit 32.0 % (39.0-51.0) Mean Corpuscular Volume 72.1 FL (80.0-100.0) Mean Corpuscular Hemoglobin 22.3 PG (27.0-34.0) Mean Corpuscular Hemoglobin 30.9 % Concent (32.0-36.0) Red Cell Distribution Width 19.9 % (11.6-17.2) Sodium Level 134 MEQ/L 133 MEQ/L (136-145) (136-145) Random Glucose 136 MG/DL 132 MG/DL (74-106) (74-106) Creatinine 0.59 MG/DL (0.60-1.30) GENERAL: SKIN: Warm and dry. HEAD: Atraumatic. Normocephalic. EYES: Pupils equal and round. No scleral icterus. No injection or drainage. ENT: No nasal bleeding or discharge. Mucous membranes pink and moist. NECK: Trachea midline. No JVD. TRACH. [place] CARDIOVASCULAR: Regular rate and rhythm. RESPIRATORY: No accessory muscle use. Clear to auscultation. Breath sounds equal bilaterally. GASTROINTESTINAL: Abdomen soft, non-tender, nondistended. Hepatic and splenic margins not palpable. MUSCULOSKELETAL: Extremities without clubbing, cyanosis, or edema. No obvious deformities. NEUROLOGICAL: Awake and alert. No obvious cranial nerve deficits. Motor grossly within normal limits. Five out of 5 muscle strength in the arms and legs. Normal speech. PSYCHIATRIC: Appropriate mood and affect; insight and judgment normal. Assessment and Plan Assessment and Plan impression respiratory failure CVA S/P TRACHEOSTOMY HEMATURIA PLAN O2 NEEDED PULM. TOILET check path FOR CYSTOSCOPY TODAY FOR CYSTOSCOPY [place] Brandon Moy MD Mar 04, 2017 18:01
[2017-03-04] MEDS: PARoxetine HCL SUSP 20 MG/10 ML UDC PEG SCH (18:19)
[2017-03-04 22:35] LABS: AUTOMATED NEUTROPHIL # 4.1 TH/MM3 (1.8-7.7); BASOPHIL # 0.1 TH/MM3 (0-0.2); BASOPHIL % 1.3 % (0.0-2.0); EOSINOPHIL # 0.2 TH/MM3 (0-0.4); EOSINOPHIL % 3.7 % (0.0-4.0); HEMATOCRIT 24.4 % (39.0-51.0); HEMO FLAGS DIFF FINAL; LYMPH % 15.2 % (9.0-44.0); LYMPHOCYTE # 0.8 TH/MM3 (1.0-4.8); MEAN CELL VOLUME 74.2 FL (80.0-100.0); MONO % 5.3 % (0.0-8.0); NEUT % 74.5 % (16.0-70.0); PLATELET COUNT 210 TH/MM3 (150-450); RED BLOOD COUNT 3.29 MIL/MM3 (4.50-5.90); RED CELL DISTRIBUTION WIDTH 20.2 % (11.6-17.2); WHITE BLOOD COUNT 5.5 TH/MM3 (4.0-11.0)
[2017-03-05] VITALS (7 sets, daily range): BP systolic 109–126; BP diastolic 67–78; PULSE 88–101; RESP 17–20; TEMP 96.9–98.5; O2SAT 98–100
[2017-03-05] MEDS: PIPERACIL-TAZO 3.375 GM PREMIX 50 ML IV SCH (04:29)
[2017-03-05] MEDS: ACETIC ACID 0.25% SOLN 1000 ML IRR BTL IRRIGATION SCH ×3 (06:00→21:33)
--- NOTE | 2017-03-05 07:47 | HHI.PR ---
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 Patient seen and examined today. His mother is at the bedside. Patient is awake. Appears to be tracking. Thick whitish secretions noted in trach piece. Discussed with nursing staff. No acute issues overnight. (+)BM x 2 overnight. Objective Vitals Vital Signs Date Time Temp Pulse Resp B/P Pulse Ox O2 Delivery O2 Flow Rate FiO2 03/05/17 04:00 97.8 94 20 126/68 99 03/05/17 00:00 96.9 88 18 118/72 100 03/04/17 20:00 96.3 94 18 115/69 100 03/04/17 18:11 100 T-piece 6.00 28 03/04/17 16:00 95.9 90 17 117/73 100 03/04/17 14:00 98 T-piece 5.00 28 03/04/17 12:00 97.0 87 16 103/64 100 03/04/17 08:45 T-Piece 6.00 28 Humidified 03/04/17 08:00 96.8 90 15 110/67 100 I/O 03/04/17 03/04/17 03/04/17 03/05/17 03/05/17 03/05/17 07:00 15:00 23:00 07:00 15:00 23:00 Intake Total 727 ml 0 ml 812 ml 0 ml Output Total 650 ml 550 ml 450 ml 950 ml Balance 77 ml -550 ml 362 ml -950 ml Intake Oral 0 ml 0 ml 0 ml 0 ml IV Total 727 ml 50 ml Tube Feeding 496 ml Other 266 ml Output Urine Total 650 ml 550 ml 450 ml 950 ml # Bowel Movements 1 2 2 1 Result Diagram: 03/04/17 2214 03/03/17 0630 Imaging Last Impressions Abdomen/Pelvis CT 02/27/17 0000 Signed Impressions: Service Date/Time: February 02:24 - CONCLUSION: 1. Abdominal aortic aneurysm. 2. Bladder mass is noted on the right posteriorly with apparent extravesical extension and clot formation. 3. Left renal cyst. 4. Left lower lobe atelectasis. 5. Large sacral decubitus ulcer with bony destruction and sclerosis of the sacrum mid to left lateral portion in the region of S3 and inferiorly which would suggest chronic osteomyelitis in the appropriate clinical setting. Rajan Granados MD Soft Tissue Ultrasound 02/26/17 0000 Signed Impressions: Service Date/Time: Sunday, February 26, 2017 12:52 - CONCLUSION: 1. Just inferior to the G-tube in the left abdomen, there is a superficial 3.8 x 2.9 0.9 cm complex fluid collection in the subcutaneous tissues. 2. Findings are nonspecific. This could represent a small seroma or abscess. Would consider CT scan of the abdomen without contrast for further evaluation to determine if there is intraperitoneal extension. Bobby Gray MD Gastrostomy Tube Placement 02/25/17 0000 Signed Impressions: Service Date/Time: Saturday, February 25, 2017 14:19 - CONCLUSION: Uncomplicated exchange of gastroenteric feeding tube for gastrostomy tube as above. Positioning confirmed. The tube can be used immediately. Glen Zamora MD Chest X-Ray 02/22/17 Signed Impressions: Service Date/Time: Wednesday, February 22, 2017 13:12 - CONCLUSION: Minimal atelectasis. Otherwise -1 view chest x-ray. Glen Moore MD Tube Change 02/14/17 0000 Signed Impressions: Service Date/Time: Tuesday, February 14, 2017 00:00 - CONCLUSION: Uncomplicated gastrojejunostomy tube exchange as above. Scott Griffin MD Head CT 01/09/17 0000 Signed Impressions: Service Date/Time: December 17:43 - CONCLUSION: 1. No acute hemorrhage or mass effect. 2. 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 3. Atrophy. Gerald Mukherjee MD CT Angiography 01/09/17 0000 Signed Impressions: Service Date/Time: December 17:49 - CONCLUSION: 1. No evidence of pulmonary emboli. 2. Patchy consolidation in both posterior lower lobes right greater than left. This could represent pneumonia. 3. 2 small noncalcified pulmonary nodules which are nonspecific finding. Short-term CT followup is recommended beginning in 6 months with a noncontrast outpatient CT. Gerald Mukherjee MD Tube Check 12/04/16 0000 Signed Impressions: Service Date/Time: Sunday, December 04, 2016 17:58 - CONCLUSION: Uncomplicated tube injection as above. the tube is in good position and functions normally. Moises Ramírez MD Abdomen X-Ray 08/31/16 0000 Signed Impressions: Service Date/Time: Wednesday, August 31, 2016 16:36 - CONCLUSION: 1. No acute findings. Mild constipation. Durga Dotson MD Head Magnetic Resonance Angiography 03/05/16 0000 Signed Impressions: Service Date/Time: Saturday, March 05, 2016 09:26 - CONCLUSION: Persistent high-grade subtotal occlusive stenotic lesions in the distal right vertebral artery and proximal basilar artery with significant improvement in flow and recanalization following initial presentation of thrombosis. Stable interstitial circulation without significant stenosis. Ernesto Kulkarni MD Brain MRI 03/05/16 0000 Signed Impressions: Service Date/Time: Saturday, March 05, 2016 09:26 - CONCLUSION: Evolving brainstem and bilateral occipital lobe infarcts with evidence of subacute hemorrhagic products. There is decreasing restricted diffusion and increasing loss of volume characteristic of a subacute to chronic infarct. No evidence of acute infarct, acute hemorrhage mass or edema. Ernesto Kulkarni MD Neck Magnetic Resonance Angiography 12/22/15 1445 Signed Impressions: Service Date/Time: Tuesday, December 22, 2015 09:22 - CONCLUSION: Variant origin of the left vertebral artery from the aortic arch. No evidence of carotid stenosis. Glen Zamora MD Head/Brain Mag Res Venography 12/22/15 0000 Signed Impressions: Service Date/Time: Tuesday, December 22, 2015 09:22 - CONCLUSION: Normal MRV. Jonel Jones Jr., MD Objective Remarks GENERAL: WDWN male, in no apparent distress. Nonverbal. Mother is at the bedside. Awake. Does not follow commands but tracking some today. SKIN: Warm and dry. Right 1st toe s/p ingrown toe nail removal, healing well. HEENT: Normocephalic. Pupils nonicteric. Nose without bleeding. NECK: Trachea midline. T-tube in place, site clean, dry, intact. Thick whitish secretions noted in trach piece. CARDIOVASCULAR: Regular rate and rhythm without murmurs, gallops, or rubs. RESPIRATORY: Coarse breath sounds. Secretions white moderately thick, small amount. GASTROINTESTINAL: Abdomen soft, non-tender, nondistended. BS active x [address] qu[address] tube in place, below incision site area slight erythema with associated fluctuance, no drainage noted. No open wound. Small amount of purulence around GJ tube site. : Lopez catheter in place, no gross hematuria noted. Urine clear. MUSCULOSKELETAL: Extremities without clubbing, cyanosis, Bilateral feet +1 edema. Upper extremities slightly edematous. NEUROLOGICAL: Awake. Patient not following commands. Nonverbal. Procedures 07/22/2016 Wide excision of sacral skin wound, biopsy of the cavity lining and debridement. PEG removal and Gj tube placement 07/29/16 VAC changes- M-W-F 10/23/16, 11/18, 12/31- GJ tube replacement 01/02/16 PEG placement 01/02/16 tracheostomy 02/25/17 PEG replacement 03/03/17 Cystoscopy and palliative transurethral resection of bladder tumor greater than 5cm originating from the right bladder wall Medications and IVs Current Medications Medications (Trade) Dose Ordered Sig/Junior Route Start Time Stop Time Status Last Admin (NS Flush) 2 ml UNSCH PRN IVF 12/21/15 06:00 09/28/16 21:18 (Keppra Liq) 500 mg Q12HR TUBE 12/27/15 21:00 03/04/17 21:06 (Tylenol 650 Mg/ 20 ml Liq) 650 mg Q6H PRN TUBE 12/30/15 15:15 01/18/17 21:34 (Mycostatin Powder) 1 applic Q12HR TOPICAL 01/08/16 21:00 03/04/17 21:00 (Pill Splitter) 1 ea UNSCH PRN OTHER 01/14/16 08:30 (Acetic Acid 0.25% Irr Btl) 10 ml Q8HR IRRIGATION 02/05/16 16:00 03/05/17 06:00 (Paxil Liq) 20 mg DAILY@1900 PEG 03/12/16 19:00 03/04/17 18:19 (Levsin) 0.25 mg Q4H PRN G-TUBE 04/11/16 10:30 03/04/17 15:49 (Zofran Inj) 4 mg Q6HR PRN IV PUSH 04/14/16 19:45 08/10/16 10:16 (Aspirin) 325 mg DAILY TUBE 05/27/16 11:40 Hold 02/25/17 08:28 (Heparin Inj) 5,000 units Q8HR SQ 06/11/16 14:00 Hold 02/25/17 13:23 (Baciguent Oint) 1 applic BID TOP 07/20/16 10:00 03/04/17 21:00 ([place]) 1 spray BID NASAL 08/01/16 21:00 03/04/17 21:07 (Tears Naturale Opth Soln) 1 drop BID EACH EYE 09/05/16 21:00 03/04/17 21:07 (Morphine Inj) 1 mg Q24H PRN IV PUSH 09/17/16 14:30 10/22/16 02:00 (Dulcolax Supp) 10 mg DAILY PRN RECTAL 09/26/16 15:30 12/08/16 09:17 (Tylenol - Codeine 120-12 Liq) 5 ml Q4H PRN G-TUBE 12/27/16 15:30 02/28/17 11:38 (Imodium Liq) 2 mg Q6H PRN PEG 12/27/16 15:30 01/24/17 20:05 (Milk Of Magnesia Liq) 30 ml DAILY PRN PEG 12/27/16 15:30 02/11/17 08:46 (Milk Of Magnesia Liq) 30 ml DAILY PEG 12/28/16 09:00 Hold 01/19/17 08:44 (Senna Liq) 8.8 mg DAILY@1600 PEG 12/27/16 16:00 03/02/17 16:54 (Lactulose Liq) 30 ml DAILY PRN PEG 12/27/16 15:30 (Cardizem) 30 mg QID PEG 01/09/17 18:00 03/04/17 21:06 (D50w (Vial) Inj) 50 ml UNSCH PRN IV 01/09/17 16:00 (Glucagon Inj) 1 mg UNSCH PRN OTHER 01/09/17 16:00 (Prevacid Odt) 30 mg BID NG 01/26/17 21:00 03/04/17 21:06 (Ashish Powder) 1 pack BID G-TUBE 02/10/17 21:00 03/04/17 21:00 (Ferrous Sulfate Liq) 300 mg DAILY PO 02/14/17 09:00 03/04/17 08:35 (Vitamin C) 1,000 mg DAILY PO 02/14/17 09:00 03/04/17 08:35 Bacitracin 0.9 gm 0.9 gm DAILY TOPICAL 02/25/17 09:00 03/04/17 08:38 (Zosyn 3.375 Gm Premix) 50 ml @ 100 mls/hr Q6H IV 02/26/17 11:00 03/05/17 10:59 03/05/17 04:29 Date of Insertion: Feb 10, 2017 A/P Problem List: (1) CVA (cerebral vascular accident) ICD Code: I63.9 Status: Acute (2) A-fib ICD Code: I48.91 Status: Chronic (3) DM (diabetes mellitus) ICD Code: E11.9 Status: Chronic Assessment and Plan 60 year-old male with past medical history of paroxysmal A. fib, hypertension, stage III non-Hodgkin's lymphoma status post chemotherapy who came into the hospital with altered mental status. Gross Hematuria - Lopez change following cystoscopy procedure yesterday - Hematuria appears resolved at present - Hold Heparin, hold aspirin - Restart once cleared with - discussed with nursing staff who will reach out to Urology today to clarify when we can resume. - Urology Consult appreciated. Recommends flushing Lopez catheter. - CT of the abdomen showed bladder mass right posteriorly with apparent extravesical extension and clot formation. - Urology spoke with family member, daughter, states that he's not recommending biopsy of the bladder mass. However daughter insisted on biopsy. Patient s/p cystoscopy and palliative transurethral resection of bladder tumor greater than 5 cm originating from right bladder wall performed by Dr. Sewell. Await biopsy results. - H&H dropped to 7.4/24.3.. Improved status post transfusion. Trending down. Now 7.6. Today's labs pending. - Continue to flush lopez catheter PRN. Abdominal wound/ lesion - Below the GJ incision site. Appears unchanged from yesterday. Some purulence noted around PEG site. - Wound Care consulted and recommends leaving open to air, imaging soft tissue ultrasound. - Continue Bacitracin - Ultrasound soft tissue surrounding area for possible fluid collection that would need I & D. - Soft tissue ultrasound showed 1. Just inferior to that the tube in the left abdomen, there is a superficial 3.8 x 2.9 0.9 cm complex fluid collection in the subcutaneous tissue. 2. Findings are nonspecific. This could represent a small seroma or abscess. Would consider CT scan of the abdomen with contrast for further evaluation and determine if there is an intraperitoneal extension. - CT of the abdomen showed 1. Abdominal aortic aneurysm. 2. Bladder mass is noted on the right posteriorly with apparent extravesical extension and clot formation. 3. Left renal cyst. 4. Left lower lobe atelectasis. 5. Large sacral decubitus ulcer with bony disruption and sclerosis of the sacrum mid to left lateral portion in the region of S3 and inferiorly which would suggest chronic osteomyelitis in the appropriate clinical setting. - No intraperitoneal extension noted for the wound, will possibly need bedside I&D. Wound consult. 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 Intermittently tracks with eyes. - Continue Keppra 500mg BID for seizure prophylaxis. Check Keppra level. - PT/OT signed off as patient is unable to participate. - On Paxil 20 by mouth daily for depression. - On acetaminophen with codeine for pain scale of 2-10. - Morphine 1 mg every 24 hours when necessary for dressing change Chronic respiratory failure secondary to CVA - Status post tracheostomy. Continue pulmonary toilet and bronchodilators as needed. Continue trach care, suctioning. Levsin as needed. - Trach changed to size #6 XLT on 01/09 - Duo nebs every 6 hours - Pulmonary currently following, appreciate assistance. - 01/09 CTA chest: No PE, bilateral lower lobe infiltrates. 4 mm right upper lobe/5 mm right middle lobe nodule. - CXR 02/22/17 reveals minimal atelectasis Right hallux ingrown toenail, paronychia- medial aspect 02/23/17 new area of paronychia right hallux ingrown toe nail lateral aspect - Slicing Machine Operator has seen patient. I & D with partial nail avulsion performed at bedside 02/06/17. - Seen by podiatry. Plan is to aggressively cut the nail back. - Resolved Atrial fibrillation, controlled Hypertension Dyslipidemia - Continue rate control with Cardizem and metoprolol. - Echocardiogram in November 2015 shows preserved ejection fraction. Coumadin discontinued secondary to bleeding. - Continue aspirin and prophylactic heparin dose. History of non-Hodgkin's lymphoma - Status post brain biopsy on December 13 by neurosurgery. Pathology consistent with acute infarct without evidence of lymphoma. Oncology has signed off. Diabetes mellitus Type 2 - Hemoglobin A1c is 5.5. - Fingersticks have been stable and were DC'd 02/01/17 Decubitus ulcer stage IV - Continue wound care, twice-daily dressing changes. Wound care recommendations last updated 12/12/16. Continue pressure relief measures including turning and positioning. Patient's family has declined a diverting colostomy. Previous Wound culture growing Klebsiella and Enterococcus Faecalis. Previously on Augmentin. Status post wide excision of sacral skin and biopsy of the cavity lining with debridement on 07/22/16. - Wound care last saw patient on 01/17/17, no new recommendations continue packing with Betadine moistened rolled Janis and covered with ABD pad and paper tape to secure. - Continue to monitor. Continue pressure-relief. - Morphine 1 mg every 24 hours when necessary for dressing change Protein calorie malnutrition Gastroesophageal reflux disease Gastric ulcer, reflux esophagitis Diarrhea, negative for C. difficile. Improved - EGD on 07/30/16 showed gastric ulcers. - On Prevacid 30 mg Q12, on tube feeds(Jevity 1.5 at 55 ml/hr) - Continue bowel regimen with hold parameters, Lactinex and Imodium. - G/J tube clogged, IR consulted to evaluate. Replaced on 02/25/17 - Reiterated proper G/J tube care and flush procedures. Discuss and explained with family. UTI pseudomonas aeruginosa Recurrent - Previous Repeat Ucx 08/28/16 negative. - 02/22/17 UA consistent with UTI - cultures pseudomonas, currently on Rocephin will change to cefepime since last culture was also Pseudomonas and was sensitive to cefepime. - Sensitivities came back, was switched over to Zosyn as cultures are not sensitive to cefepime. Klebsiella/Pseudomonas/staph aureus HCAP PSAE UTI - S/p Cefepime. Monitor for signs of infections. - strep pneumonia and Legionella urinary Ag is negative - C-diff PCR negative on 01/13 - 01/09 BC : Staph Epi, Urine cx: Pseudomonas, Sputum cx: Pseudomonas, kleb, Staph. - Patient was pancultured on 01/19 (Blood, sputum, urine) NGTD in urine and blood. Sputum + for pseudomonas. Patient has a placement for [place]. Plan for discharge was held for now in lieu of ongoing hematuria, urology consult for hematuria. DVT prophylaxis: SCDs. Heparin 5,000 units sq Q8hr (Held) - due to hematuria. Discussed with pt's family members, nursing, and Dr. Buck Problem Qualifiers (1) CVA (cerebral vascular accident): (2) DM (diabetes mellitus): Jaz Peraza Mar 05, 2017 07:47 Jaz Peraza Mar 05, 2017 07:47
[2017-03-05 08:15] LABS: AUTOMATED NEUTROPHIL # 3.2 TH/MM3 (1.8-7.7); BASOPHIL % 1.1 % (0.0-2.0); EOSINOPHIL # 0.2 TH/MM3 (0-0.4); HEMATOCRIT 23.9 % (39.0-51.0); HEMO FLAGS DIFF FINAL; LYMPH % 19.8 % (9.0-44.0); LYMPHOCYTE # 0.9 TH/MM3 (1.0-4.8); MEAN CELL VOLUME 74.1 FL (80.0-100.0); MEAN CORPUSCULAR HEMOGLOBIN 23.3 PG (27.0-34.0); MEAN CORPUSCULAR HGB CONC 31.4 % (32.0-36.0); MONO % 4.9 % (0.0-8.0); NEUT % 70.2 % (16.0-70.0); PLATELET COUNT 203 TH/MM3 (150-450); RED BLOOD COUNT 3.22 MIL/MM3 (4.50-5.90); RED CELL DISTRIBUTION WIDTH 20.1 % (11.6-17.2); WHITE BLOOD COUNT 4.5 TH/MM3 (4.0-11.0)
[2017-03-05] MEDS: BACITRACIN OINT 0.9 GM PKT TOPICAL SCH (09:00)
[2017-03-05] MEDS: NYSTATIN 100,000 U/GM PWD 15 GM BTL TOPICAL SCH ×2 (09:00→21:00)
[2017-03-05] MEDS: BACITRACIN TOP OINT 15 GM TUBE TOP SCH ×2 (09:00→21:00)
[2017-03-05] MEDS: JUVEN POWDER 1 PACK G-TUBE SCH ×2 (09:00→21:00)
[2017-03-05] MEDS: FERROUS SULFATE 300 MG /5ML UDC PO SCH (09:22)
[2017-03-05] MEDS: levETIRAcetam 500 MG/5 ML UDC TUBE SCH ×2 (09:22→21:30)
[2017-03-05] MEDS: DILTIAZEM HCL 30 MG TAB PEG SCH ×4 (09:22→21:00)
[2017-03-05] MEDS: ASCORBIC ACID 500 MG TAB PO SCH (09:22)
[2017-03-05] MEDS: LANSOPRAZOLE SOLUTAB 30 MG TAB NG SCH ×2 (09:22→21:30)
[2017-03-05] MEDS: SODIUM CHLORIDE 0.65% NASAL SPRAY 45 ML BTL NASAL SCH ×2 (09:23→21:32)
[2017-03-05] MEDS: ARTIFICIAL TEARS OPTH SOLN 15 ML BTL EACH EYE SCH ×2 (09:23→21:32)
[2017-03-05] MEDS: SENNOSIDES SYRUP 8.8 MG/5 ML CUP PEG SCH (14:25)
[2017-03-05 16:26] LABS: BICARBONATE 26.5 MEQ/L (21.0-32.0); POTASSIUM 3.7 MEQ/L (3.5-5.1)
[2017-03-05] MEDS: PARoxetine HCL SUSP 20 MG/10 ML UDC PEG SCH (18:47)
--- NOTE | 2017-03-05 18:52 | HHI.PR ---
Subjective Remarks ass OPENS EYES NO DISTRESS o2 sat 95% cystoscopy and biopsy done Objective Vital Signs Date Time Temp Pulse Resp B/P Pulse Ox O2 Delivery O2 Flow Rate FiO2 03/05/17 12:00 98.5 94 17 109/69 100 03/05/17 11:37 98 Trach Collar 5.00 28 03/05/17 08:00 98.4 96 17 116/67 100 03/05/17 04:00 97.8 94 20 126/68 99 03/05/17 00:00 96.9 88 18 118/72 100 03/04/17 21:00 100 T-Piece 6.00 28 03/04/17 20:00 96.3 94 18 115/69 100 I/O 03/04/17 03/04/17 03/04/17 03/05/17 03/05/17 03/05/17 07:00 15:00 23:00 07:00 15:00 23:00 Intake Total 727 ml 0 ml 1079 ml 581 ml 450 ml Output Total 650 ml 550 ml 450 ml 950 ml Balance 77 ml -550 ml 629 ml -369 ml 450 ml Intake Oral 0 ml 0 ml 0 ml 0 ml IV Total 727 ml 50 ml 100 ml Tube Feeding 763 ml 481 ml 450 ml Other 266 ml Output Urine Total 650 ml 550 ml 450 ml 950 ml # Bowel Movements 1 2 2 1 Result Diagram: 03/05/17 0607 03/05/17 1515 Procedures 01/02/16 PEG placement 01/02/16 tracheostomy 07/22/2016 Wide excision of sacral skin wound, biopsy of the cavity lining and debridement. PEG tube replacement 07/29/16 Objective Remarks GENERAL: SKIN: Warm and dry. HEAD: Atraumatic. Normocephalic. EYES: Pupils equal and round. No scleral icterus. No injection or drainage. ENT: No nasal bleeding or discharge. Mucous membranes pink and moist. NECK: Trachea midline. No JVD. CARDIOVASCULAR: Regular rate and rhythm. RESPIRATORY: No accessory muscle use. Clear to auscultation. Breath sounds equal bilaterally. GASTROINTESTINAL: Abdomen soft, non-tender, nondistended. Hepatic and splenic margins not palpable. MUSCULOSKELETAL: Extremities without clubbing, cyanosis, or edema. No obvious deformities. NEUROLOGICAL: Awake and alert. No obvious cranial nerve deficits. Motor grossly within normal limits. Five out of 5 muscle strength in the arms and legs. Normal speech. PSYCHIATRIC: Appropriate mood and affect; insight and judgment normal. Laboratory Tests Test 01/05/17 01/06/17 08:35 08:41 Red Blood Count 4.43 MIL/MM3 (4.50-5.90) Hemoglobin 9.9 GM/DL (13.0-17.0) Hematocrit 32.0 % (39.0-51.0) Mean Corpuscular Volume 72.1 FL (80.0-100.0) Mean Corpuscular Hemoglobin 22.3 PG (27.0-34.0) Mean Corpuscular Hemoglobin 30.9 % Concent (32.0-36.0) Red Cell Distribution Width 19.9 % (11.6-17.2) Sodium Level 134 MEQ/L 133 MEQ/L (136-145) (136-145) Random Glucose 136 MG/DL 132 MG/DL (74-106) (74-106) Creatinine 0.59 MG/DL (0.60-1.30) GENERAL: SKIN: Warm and dry. HEAD: Atraumatic. Normocephalic. EYES: Pupils equal and round. No scleral icterus. No injection or drainage. ENT: No nasal bleeding or discharge. Mucous membranes pink and moist. NECK: Trachea midline. No JVD. TRACH. [place] CARDIOVASCULAR: Regular rate and rhythm. RESPIRATORY: No accessory muscle use. Clear to auscultation. Breath sounds equal bilaterally. GASTROINTESTINAL: Abdomen soft, non-tender, nondistended. Hepatic and splenic margins not palpable. MUSCULOSKELETAL: Extremities without clubbing, cyanosis, or edema. No obvious deformities. NEUROLOGICAL: Awake and alert. No obvious cranial nerve deficits. Motor grossly within normal limits. Five out of 5 muscle strength in the arms and legs. Normal speech. PSYCHIATRIC: Appropriate mood and affect; insight and judgment normal. Assessment and Plan Assessment and Plan impression respiratory failure CVA S/P TRACHEOSTOMY HEMATURIA PLAN O2 NEEDED PULM. TOILET check path Brandon Taylor MD Mar 05, 2017 18:51
[2017-03-05] MEDS: HYOSCYAMINE 0.125 MG TAB G-TUBE PRN (21:30)
[2017-03-06] VITALS (9 sets, daily range): BP systolic 106–120; BP diastolic 58–71; PULSE 86–102; RESP 16–19; TEMP 96.8–98.8; O2SAT 96–100
[2017-03-06] MEDS: ACETIC ACID 0.25% SOLN 1000 ML IRR BTL IRRIGATION SCH ×3 (05:26→21:30)
[2017-03-06] MEDS: JUVEN POWDER 1 PACK G-TUBE SCH ×2 (09:00→21:28)
[2017-03-06] MEDS: NYSTATIN 100,000 U/GM PWD 15 GM BTL TOPICAL SCH ×2 (09:00→21:30)
[2017-03-06] MEDS: DILTIAZEM HCL 30 MG TAB PEG SCH ×4 (09:00→21:27)
[2017-03-06] MEDS: BACITRACIN OINT 0.9 GM PKT TOPICAL SCH (09:00)
[2017-03-06] MEDS: levETIRAcetam 500 MG/5 ML UDC TUBE SCH ×2 (09:37→21:27)
[2017-03-06] MEDS: FERROUS SULFATE 300 MG /5ML UDC PO SCH (09:37)
[2017-03-06] MEDS: ASCORBIC ACID 500 MG TAB PO SCH (09:37)
[2017-03-06] MEDS: LANSOPRAZOLE SOLUTAB 30 MG TAB NG SCH ×2 (09:38→21:27)
[2017-03-06] MEDS: ACETAMINOPHEN/CODEINE ELIX 120 MG/12 MG/5 ML CUP G-TUBE PRN (09:38)
[2017-03-06] MEDS: ARTIFICIAL TEARS OPTH SOLN 15 ML BTL EACH EYE SCH ×2 (09:39→21:29)
[2017-03-06] MEDS: SODIUM CHLORIDE 0.65% NASAL SPRAY 45 ML BTL NASAL SCH ×2 (09:39→21:30)
[2017-03-06] MEDS: BACITRACIN TOP OINT 15 GM TUBE TOP SCH ×2 (09:39→21:30)
[2017-03-06] MEDS: HYOSCYAMINE 0.125 MG TAB G-TUBE PRN ×2 (09:41→21:29)
[2017-03-06] MEDS: RESP: LEVALBUTEROL HYDROCHLORIDE 0.63 MG/3 ML NEB (PRN) NEB (10:45)
--- NOTE | 2017-03-06 11:05 | HHI.PR ---
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 Patient seen and examined today. His mother and sister are at the bedside. Patient is awake. Continues to have thick secretions. Objective Vitals Vital Signs Date Time Temp Pulse Resp B/P Pulse Ox O2 Delivery O2 Flow Rate FiO2 03/06/17 08:00 97.1 88 17 107/58 100 03/06/17 00:00 96.8 99 18 117/71 98 03/05/17 21:00 100 T-Piece 6.00 28 03/05/17 20:25 100 T-piece 6.00 28 03/05/17 20:00 97.0 101 18 118/78 99 03/05/17 12:00 98.5 94 17 109/69 100 03/05/17 11:37 98 Trach Collar 5.00 28 I/O 03/05/17 03/05/17 03/05/17 03/06/17 03/06/17 03/06/17 07:00 15:00 23:00 07:00 15:00 23:00 Intake Total 581 ml 450 ml 681 ml 386 ml Output Total 950 ml 600 ml 650 ml Balance -369 ml 450 ml 81 ml -264 ml Intake Oral 0 ml 0 ml 0 ml IV Total 100 ml 0 ml Tube Feeding 481 ml 450 ml 481 ml 286 ml Other 200 ml 100 ml Output Urine Total 950 ml 600 ml 650 ml # Bowel Movements 1 0 1 Result Diagram: 03/05/17 0607 03/05/17 1515 Imaging Last Impressions Abdomen/Pelvis CT 02/27/17 0000 Signed Impressions: Service Date/Time: February 02:24 - CONCLUSION: 1. Abdominal aortic aneurysm. 2. Bladder mass is noted on the right posteriorly with apparent extravesical extension and clot formation. 3. Left renal cyst. 4. Left lower lobe atelectasis. 5. Large sacral decubitus ulcer with bony destruction and sclerosis of the sacrum mid to left lateral portion in the region of S3 and inferiorly which would suggest chronic osteomyelitis in the appropriate clinical setting. Rajan Granados MD Soft Tissue Ultrasound 02/26/17 0000 Signed Impressions: Service Date/Time: Sunday, February 26, 2017 12:52 - CONCLUSION: 1. Just inferior to the G-tube in the left abdomen, there is a superficial 3.8 x 2.9 0.9 cm complex fluid collection in the subcutaneous tissues. 2. Findings are nonspecific. This could represent a small seroma or abscess. Would consider CT scan of the abdomen without contrast for further evaluation to determine if there is intraperitoneal extension. Bobby Gray MD Gastrostomy Tube Placement 02/25/17 0000 Signed Impressions: Service Date/Time: Saturday, February 25, 2017 14:19 - CONCLUSION: Uncomplicated exchange of gastroenteric feeding tube for gastrostomy tube as above. Positioning confirmed. The tube can be used immediately. Glen Zamora MD Chest X-Ray 02/22/17 0000 Signed Impressions: Service Date/Time: Wednesday, February 22, 2017 13:12 - CONCLUSION: Minimal atelectasis. Otherwise -1 view chest x-ray. Glen Moore MD Tube Change 02/14/17 0000 Signed Impressions: Service Date/Time: Tuesday, February 14, 2017 00:00 - CONCLUSION: Uncomplicated gastrojejunostomy tube exchange as above. Scott Griffin MD Head CT 01/09/17 0000 Signed Impressions: Service Date/Time: December 17:43 - CONCLUSION: 1. No acute hemorrhage or mass effect. 2. 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 3. Atrophy. Gerald Mukherjee MD CT Angiography 01/09/17 0000 Signed Impressions: Service Date/Time: December 17:49 - CONCLUSION: 1. No evidence of pulmonary emboli. 2. Patchy consolidation in both posterior lower lobes right greater than left. This could represent pneumonia. 3. 2 small noncalcified pulmonary nodules which are nonspecific finding. Short-term CT followup is recommended beginning in 6 months with a noncontrast outpatient CT. Gerald Mukherjee MD Tube Check 12/04/16 0000 Signed Impressions: Service Date/Time: Sunday, December 04, 2016 17:58 - CONCLUSION: Uncomplicated tube injection as above. the tube is in good position and functions normally. Moises Ramírez MD Abdomen X-Ray 08/31/16 0000 Signed Impressions: Service Date/Time: Wednesday, August 31, 2016 16:36 - CONCLUSION: 1. No acute findings. Mild constipation. Durga Dotson MD Head Magnetic Resonance Angiography 03/05/16 0000 Signed Impressions: Service Date/Time: Saturday, March 05, 2016 09:26 - CONCLUSION: Persistent high-grade subtotal occlusive stenotic lesions in the distal right vertebral artery and proximal basilar artery with significant improvement in flow and recanalization following initial presentation of thrombosis. Stable interstitial circulation without significant stenosis. Ernesto Kulkarni MD Brain MRI 03/05/16 0000 Signed Impressions: Service Date/Time: Saturday, March 05, 2016 09:26 - CONCLUSION: Evolving brainstem and bilateral occipital lobe infarcts with evidence of subacute hemorrhagic products. There is decreasing restricted diffusion and increasing loss of volume characteristic of a subacute to chronic infarct. No evidence of acute infarct, acute hemorrhage mass or edema. Ernesto Kulkarni MD Neck Magnetic Resonance Angiography 12/22/15 1445 Signed Impressions: Service Date/Time: Tuesday, December 22, 2015 09:22 - CONCLUSION: Variant origin of the left vertebral artery from the aortic arch. No evidence of carotid stenosis. Glen Zamora MD Head/Brain Mag Res Venography 12/22/15 0000 Signed Impressions: Service Date/Time: Tuesday, December 22, 2015 09:22 - CONCLUSION: Normal MRV. Jonel Jones Jr., MD Objective Remarks GENERAL: WDWN male, in no apparent distress. Nonverbal. Mother and sister are at the bedside. Awake. Tracking. Able to move left index finger slightly when asked to manager analysis. SKIN: Warm and dry. Right 1st toe s/p ingrown toe nail removal, healing well. HEENT: Normocephalic. Pupils nonicteric. Nose without bleeding. NECK: Trachea midline. T-tube in place, site clean, dry, intact. Thick whitish secretions noted in trach piece. CARDIOVASCULAR: Regular rate and rhythm without murmurs, gallops, or rubs. RESPIRATORY: Coarse breath sounds. Secretions white moderately thick, small amount. GASTROINTESTINAL: Abdomen soft, non-tender, nondistended. BS active x [address] quads[address] tube in place, below incision site area slight erythema with associated fluctuance, no drainage noted. No open wound. Small amount of purulence around GJ tube site, improved. : Lopez catheter in place, no gross hematuria noted. Urine clear. MUSCULOSKELETAL: Extremities without clubbing, cyanosis, Bilateral feet +1 edema. Upper extremities slightly edematous. NEUROLOGICAL: Awake. Patient not following commands. Nonverbal. Procedures 07/22/2016 Wide excision of sacral skin wound, biopsy of the cavity lining and debridement. PEG removal and Gj tube placement 07/29/16 VAC changes- M-W-F 10/23/16, 11/18, 12/31- GJ tube replacement 01/02/16 PEG placement 01/02/16 tracheostomy 02/25/17 PEG replacement 03/03/17 Cystoscopy and palliative transurethral resection of bladder tumor greater than 5cm originating from the right bladder wall Medications and IVs Current Medications Medications (Trade) Dose Ordered Sig/Junior Route Start Time Stop Time Status Last Admin (NS Flush) 2 ml UNSCH PRN IVF 12/21/15 06:00 09/28/16 21:18 (Keppra Liq) 500 mg Q12HR TUBE 12/27/15 21:00 03/06/17 09:37 (Tylenol 650 Mg/ 20 ml Liq) 650 mg Q6H PRN TUBE 12/30/15 15:15 01/18/17 21:34 (Mycostatin Powder) 1 applic Q12HR TOPICAL 01/08/16 21:00 03/06/17 09:00 (Pill Splitter) 1 ea UNSCH PRN OTHER 01/14/16 08:30 (Acetic Acid 0.25% Irr Btl) 10 ml Q8HR IRRIGATION 02/05/16 16:00 03/06/17 05:26 (Paxil Liq) 20 mg DAILY@1900 PEG 03/12/16 19:00 03/05/17 18:47 (Levsin) 0.25 mg Q4H PRN G-TUBE 04/11/16 10:30 03/06/17 09:41 (Zofran Inj) 4 mg Q6HR PRN IV PUSH 04/14/16 19:45 08/10/16 10:16 (Aspirin) 325 mg DAILY TUBE 05/27/16 11:40 Hold 02/25/17 08:28 (Heparin Inj) 5,000 units Q8HR SQ 06/11/16 14:00 Hold 02/25/17 13:23 (Baciguent Oint) 1 applic BID TOP 07/20/16 10:00 03/06/17 09:39 ([place] Nagel [place]) 1 spray BID NASAL 08/01/16 21:00 03/06/17 09:39 (Tears Naturale Opth Soln) 1 drop BID EACH EYE 09/05/16 21:00 03/06/17 09:39 (Morphine Inj) 1 mg Q24H PRN IV PUSH 09/17/16 14:30 10/22/16 02:00 (Dulcolax Supp) 10 mg DAILY PRN RECTAL 09/26/16 15:30 12/08/16 09:17 (Tylenol - Codeine 120-12 Liq) 5 ml Q4H PRN G-TUBE 12/27/16 15:30 03/06/17 09:38 (Imodium Liq) 2 mg Q6H PRN PEG 12/27/16 15:30 01/24/17 20:05 (Milk Of Magnesia Liq) 30 ml DAILY PRN PEG 12/27/16 15:30 02/11/17 08:46 (Milk Of Magnesia Liq) 30 ml DAILY PEG 12/28/16 09:00 Hold 01/19/17 08:44 (Senna Liq) 8.8 mg DAILY@1600 PEG 12/27/16 16:00 03/02/17 16:54 (Lactulose Liq) 30 ml DAILY PRN PEG 12/27/16 15:30 (Cardizem) 30 mg QID PEG 01/09/17 18:00 03/05/17 21:00 (D50w (Vial) Inj) 50 ml UNSCH PRN IV 01/09/17 16:00 (Glucagon Inj) 1 mg UNSCH PRN OTHER 01/09/17 16:00 (Prevacid Odt) 30 mg BID NG 01/26/17 21:00 03/06/17 09:38 (Ashish Powder) 1 pack BID G-TUBE 02/10/17 21:00 03/06/17 09:00 (Ferrous Sulfate Liq) 300 mg DAILY PO 02/14/17 09:00 03/06/17 09:37 (Vitamin C) 1,000 mg DAILY PO 02/14/17 09:00 03/06/17 09:37 (Bacitracin Oint Packet) 0.9 gm DAILY TOPICAL 02/25/17 09:00 03/04/17 08:38 Date of Insertion: Feb 10, 2017 A/P Problem List: (1) CVA (cerebral vascular accident) ICD Code: I63.9 Status: Acute (2) A-fib ICD Code: I48.91 Status: Chronic (3) DM (diabetes mellitus) ICD Code: E11.9 Status: Chronic Assessment and Plan 60 year-old male with past medical history of paroxysmal A. fib, hypertension, stage III non-Hodgkin's lymphoma status post chemotherapy who came into the hospital with altered mental status. Gross Hematuria - Urology following - Lopez change following cystoscopy procedure - Hematuria appears resolved at present - Hold Heparin, hold aspirin - Per Urology, may resume once urine clear for 48hrs. Urine clear yesterday. Will continue to monitor. - CT of the abdomen showed bladder mass right posteriorly with apparent extravesical extension and clot formation. - Urology spoke with family member, daughter, states that he's not recommending biopsy of the bladder mass. However daughter insisted on biopsy. Patient s/p cystoscopy and palliative transurethral resection of bladder tumor greater than 5 cm originating from right bladder wall performed by Dr. Sewell. Await biopsy results - still pending. - H&H dropped to 7.4/24.3. Improved status post transfusion. Trending down. Continue to monitor. AM labs ordered. - Continue to flush lopez catheter PRN. Abdominal wound/ lesion - Below the GJ incision site. Appears unchanged. Some purulence noted around PEG site, improved. - Wound Care consulted and recommends leaving open to air, imaging soft tissue ultrasound. - Continue Bacitracin - Ultrasound soft tissue surrounding area for possible fluid collection that would need I & D. - Soft tissue ultrasound showed 1. Just inferior to that the tube in the left abdomen, there is a superficial 3.8 x 2.9 0.9 cm complex fluid collection in the subcutaneous tissue. 2. Findings are nonspecific. This could represent a small seroma or abscess. Would consider CT scan of the abdomen with contrast for further evaluation and determine if there is an intraperitoneal extension. - CT of the abdomen showed 1. Abdominal aortic aneurysm. 2. Bladder mass is noted on the right posteriorly with apparent extravesical extension and clot formation. 3. Left renal cyst. 4. Left lower lobe atelectasis. 5. Large sacral decubitus ulcer with bony disruption and sclerosis of the sacrum mid to left lateral portion in the region of S3 and inferiorly which would suggest chronic osteomyelitis in the appropriate clinical setting. - No intraperitoneal extension noted for the wound, will possibly need bedside I&D. 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 Intermittently tracks with eyes. - Continue Keppra 500mg BID for seizure prophylaxis. Check Keppra level - pending. - PT/OT signed off as patient is unable to participate. - On Paxil 20 by mouth daily for depression. - On acetaminophen with codeine for pain scale of 2-10. - Morphine 1 mg every 24 hours when necessary for dressing change Chronic respiratory failure secondary to CVA - Status post tracheostomy. Continue pulmonary toilet and bronchodilators as needed. Continue trach care, suctioning. Levsin as needed. - Trach changed to size #6 XLT on 01/09 - Duo nebs every 6 hours - Pulmonary currently following, appreciate assistance. - 01/09 CTA chest: No PE, bilateral lower lobe infiltrates. 4 mm right upper lobe/5 mm right middle lobe nodule. - CXR 02/22/17 reveals minimal atelectasis Right hallux ingrown toenail, paronychia- medial aspect 02/23/17 new area of paronychia right hallux ingrown toe nail lateral aspect - Medical Assisting Instructor has seen patient. I & D with partial nail avulsion performed at bedside 02/06/17. - Seen by podiatry. Plan is to aggressively cut the nail back. - Resolved Atrial fibrillation, controlled Hypertension Dyslipidemia - Continue rate control with Cardizem and metoprolol. - Echocardiogram in November 2015 shows preserved ejection fraction. Coumadin discontinued secondary to bleeding. - ASA on hold History of non-Hodgkin's lymphoma - Status post brain biopsy on December 13 by neurosurgery. Pathology consistent with acute infarct without evidence of lymphoma. Oncology has signed off. Diabetes mellitus Type 2 - Hemoglobin A1c is 5.5. - Fingersticks have been stable and were DC'd 02/01/17 Decubitus ulcer stage IV - Continue wound care, twice-daily dressing changes. Wound care recommendations last updated 12/12/16. Continue pressure relief measures including turning and positioning. Patient's family has declined a diverting colostomy. Previous Wound culture growing Klebsiella and Enterococcus Faecalis. Previously on Augmentin. Status post wide excision of sacral skin and biopsy of the cavity lining with debridement on 07/22/16. - Wound care last saw patient on 01/17/17, no new recommendations continue packing with Betadine moistened rolled Janis and covered with ABD pad and paper tape to secure. - Continue to monitor. Continue pressure-relief. - Morphine 1 mg every 24 hours when necessary for dressing change Protein calorie malnutrition Gastroesophageal reflux disease Gastric ulcer, reflux esophagitis Diarrhea, negative for C. difficile. Improved - EGD on 07/30/16 showed gastric ulcers. - On Prevacid 30 mg Q12, on tube feeds(Jevity 1.5 at 55 ml/hr) - Continue bowel regimen with hold parameters, Lactinex and Imodium. - G/J tube clogged, IR consulted to evaluate. Replaced on 02/25/17 - Reiterated proper G/J tube care and flush procedures. Discuss and explained with family. UTI pseudomonas aeruginosa Recurrent - Previous Repeat Ucx 08/28/16 negative. - 02/22/17 UA consistent with UTI - cultures pseudomonas, currently on Rocephin will change to cefepime since last culture was also Pseudomonas and was sensitive to cefepime. - Sensitivities came back, was switched over to Zosyn as cultures are not sensitive to cefepime. Klebsiella/Pseudomonas/staph aureus HCAP PSAE UTI - S/p Cefepime. Monitor for signs of infections. - strep pneumonia and Legionella urinary Ag is negative - C-diff PCR negative on 01/13 - 01/09 BC : Staph Epi, Urine cx: Pseudomonas, Sputum cx: Pseudomonas, kleb, Staph. - Patient was pancultured on 01/19 (Blood, sputum, urine) NGTD in urine and blood. Sputum + for pseudomonas. Patient has a placement for [place]. Plan for discharge was held for now in lieu of ongoing hematuria. DVT prophylaxis: SCDs. Heparin 5,000 units sq Q8hr (Held) - due to hematuria. Discussed with pt's family members, nursing, and Dr. Pruitt Problem Qualifiers (1) CVA (cerebral vascular accident): (2) DM (diabetes mellitus): Jaz Peraza Mar 06, 2017 11:05
[2017-03-06] MEDS: SENNOSIDES SYRUP 8.8 MG/5 ML CUP PEG SCH (16:00)
[2017-03-06 16:37] LABS: HEMATOCRIT 24.8 % (39.0-51.0); REVIEW FLAG FINAL
[2017-03-06] MEDS: PARoxetine HCL SUSP 20 MG/10 ML UDC PEG SCH (18:08)
--- NOTE | 2017-03-06 22:36 | HHI.PR ---
Subjective Remarks ass OPENS EYES NO DISTRESS o2 sat 95% cystoscopy and biopsy done Objective Vital Signs Date Time Temp Pulse Resp B/P Pulse Ox O2 Delivery O2 Flow Rate FiO2 03/06/17 22:06 98 T-piece 6.00 28 03/06/17 20:00 98.1 93 19 120/71 100 03/06/17 16:00 98.8 94 16 115/68 100 03/06/17 14:13 86 106/66 98 03/06/17 14:00 106/66 03/06/17 12:00 97.8 102 18 113/69 96 03/06/17 10:49 99 T-piece 5.00 28 03/06/17 08:00 97.1 88 17 107/58 100 03/06/17 00:00 96.8 99 18 117/71 98 I/O 03/05/17 03/05/17 03/05/17 03/06/17 03/06/17 03/06/17 07:00 15:00 23:00 07:00 15:00 23:00 Intake Total 581 ml 450 ml 681 ml 386 ml 386 ml 0 ml Output Total 950 ml 600 ml 650 ml 600 ml 200 ml Balance -369 ml 450 ml 81 ml -264 ml -214 ml -200 ml Intake Oral 0 ml 0 ml 0 ml 0 ml 0 ml IV Total 100 ml 0 ml Tube Feeding 481 ml 450 ml 481 ml 286 ml 386 ml Other 200 ml 100 ml Output Urine Total 950 ml 600 ml 650 ml 600 ml 200 ml # Bowel Movements 1 0 1 1 0 Result Diagram: 03/06/17 1608 03/05/17 1515 Procedures 01/02/16 PEG placement 01/02/16 tracheostomy 07/22/2016 Wide excision of sacral skin wound, biopsy of the cavity lining and debridement. PEG tube replacement 07/29/16 Objective Remarks GENERAL: SKIN: Warm and dry. HEAD: Atraumatic. Normocephalic. EYES: Pupils equal and round. No scleral icterus. No injection or drainage. ENT: No nasal bleeding or discharge. Mucous membranes pink and moist. NECK: Trachea midline. No JVD. CARDIOVASCULAR: Regular rate and rhythm. RESPIRATORY: No accessory muscle use. Clear to auscultation. Breath sounds equal bilaterally. GASTROINTESTINAL: Abdomen soft, non-tender, nondistended. Hepatic and splenic margins not palpable. MUSCULOSKELETAL: Extremities without clubbing, cyanosis, or edema. No obvious deformities. NEUROLOGICAL: Awake and alert. No obvious cranial nerve deficits. Motor grossly within normal limits. Five out of 5 muscle strength in the arms and legs. Normal speech. PSYCHIATRIC: Appropriate mood and affect; insight and judgment normal. Laboratory Tests Test 01/05/17 01/06/17 08:35 08:41 Red Blood Count 4.43 MIL/MM3 (4.50-5.90) Hemoglobin 9.9 GM/DL (13.0-17.0) Hematocrit 32.0 % (39.0-51.0) Mean Corpuscular Volume 72.1 FL (80.0-100.0) Mean Corpuscular Hemoglobin 22.3 PG (27.0-34.0) Mean Corpuscular Hemoglobin 30.9 % Concent (32.0-36.0) Red Cell Distribution Width 19.9 % (11.6-17.2) Sodium Level 134 MEQ/L 133 MEQ/L (136-145) (136-145) Random Glucose 136 MG/DL 132 MG/DL (74-106) (74-106) Creatinine 0.59 MG/DL (0.60-1.30) GENERAL: SKIN: Warm and dry. HEAD: Atraumatic. Normocephalic. EYES: Pupils equal and round. No scleral icterus. No injection or drainage. ENT: No nasal bleeding or discharge. Mucous membranes pink and moist. NECK: Trachea midline. No JVD. TRACH. [place] CARDIOVASCULAR: Regular rate and rhythm. RESPIRATORY: No accessory muscle use. Clear to auscultation. Breath sounds equal bilaterally. GASTROINTESTINAL: Abdomen soft, non-tender, nondistended. Hepatic and splenic margins not palpable. MUSCULOSKELETAL: Extremities without clubbing, cyanosis, or edema. No obvious deformities. NEUROLOGICAL: Awake and alert. No obvious cranial nerve deficits. Motor grossly within normal limits. Five out of 5 muscle strength in the arms and legs. Normal speech. PSYCHIATRIC: Appropriate mood and affect; insight and judgment normal. Assessment and Plan Assessment and Plan impression respiratory failure CVA S/P TRACHEOSTOMY HEMATURIA PLAN O2 NEEDED PULM. TOILET check path Brandon Taylor MD Mar 06, 2017 22:36
[2017-03-07] VITALS (7 sets, daily range): BP systolic 106–122; BP diastolic 65–84; PULSE 92–104; RESP 18–22; TEMP 96.4–98.9; O2SAT 97–100
[2017-03-07] MEDS: HYOSCYAMINE 0.125 MG TAB G-TUBE PRN (06:14)
[2017-03-07] MEDS: ACETIC ACID 0.25% SOLN 1000 ML IRR BTL IRRIGATION SCH ×3 (06:14→21:42)
[2017-03-07 07:17] LABS: AUTOMATED NEUTROPHIL # 4.2 TH/MM3 (1.8-7.7); BASOPHIL % 0.7 % (0.0-2.0); EOSINOPHIL # 0.1 TH/MM3 (0-0.4); EOSINOPHIL % 1.7 % (0.0-4.0); HEMATOCRIT 26.1 % (39.0-51.0); HEMO FLAGS DIFF FINAL; LYMPH % 18.4 % (9.0-44.0); LYMPHOCYTE # 1.1 TH/MM3 (1.0-4.8); MEAN CELL VOLUME 73.3 FL (80.0-100.0); MEAN CORPUSCULAR HEMOGLOBIN 22.9 PG (27.0-34.0); MEAN CORPUSCULAR HGB CONC 31.3 % (32.0-36.0); MONO % 5.9 % (0.0-8.0); NEUT % 73.3 % (16.0-70.0); PLATELET COUNT 240 TH/MM3 (150-450); RED BLOOD COUNT 3.56 MIL/MM3 (4.50-5.90); RED CELL DISTRIBUTION WIDTH 20.3 % (11.6-17.2); WHITE BLOOD COUNT 5.8 TH/MM3 (4.0-11.0)
[2017-03-07 07:32] LABS: ANION GAP 6 MEQ/L (5-15); AST (GOT) 18 U/L (15-37); BICARBONATE 27.3 MEQ/L (21.0-32.0); BLOOD UREA NITROGEN 25 MG/DL (7-18); CHLORIDE 102 MEQ/L (98-107); GLOMERULAR FILTRATION RATE 87 ML/MIN (>89); POTASSIUM 4.1 MEQ/L (3.5-5.1); SODIUM (NA) 135 MEQ/L (136-145)
[2017-03-07 07:33] LABS: ALT (GPT) 11 U/L (12-78)
[2017-03-07 07:35] LABS: ALKALINE PHOSPHATASE 61 U/L (45-117); TOTAL BILIRUBIN ADULT 0.3 MG/DL (0.2-1.0)
[2017-03-07] MEDS: levETIRAcetam 500 MG/5 ML UDC TUBE SCH ×2 (08:49→21:40)
[2017-03-07] MEDS: FERROUS SULFATE 300 MG /5ML UDC PO SCH (08:49)
[2017-03-07] MEDS: DILTIAZEM HCL 30 MG TAB PEG SCH ×4 (08:50→21:00)
[2017-03-07] MEDS: LANSOPRAZOLE SOLUTAB 30 MG TAB NG SCH ×2 (08:50→21:40)
[2017-03-07] MEDS: ASCORBIC ACID 500 MG TAB PO SCH (08:50)
[2017-03-07] MEDS: HYOSCYAMINE 0.125 MG TAB G-TUBE SCH ×4 (08:51→21:40)
[2017-03-07] MEDS: NYSTATIN 100,000 U/GM PWD 15 GM BTL TOPICAL SCH ×2 (08:52→21:42)
[2017-03-07] MEDS: BACITRACIN OINT 0.9 GM PKT TOPICAL SCH (08:52)
[2017-03-07] MEDS: BACITRACIN TOP OINT 15 GM TUBE TOP SCH ×2 (08:52→21:42)
[2017-03-07] MEDS: ARTIFICIAL TEARS OPTH SOLN 15 ML BTL EACH EYE SCH ×2 (08:53→21:41)
[2017-03-07] MEDS: JUVEN POWDER 1 PACK G-TUBE SCH ×2 (08:53→21:41)
[2017-03-07] MEDS: SODIUM CHLORIDE 0.65% NASAL SPRAY 45 ML BTL NASAL SCH ×2 (08:53→21:41)
--- NOTE | 2017-03-07 09:57 | HHI.PR ---
Subjective Remarks ass OPENS EYES NO DISTRESS o2 sat 95% cystoscopy and biopsy done Objective Vital Signs Date Time Temp Pulse Resp B/P Pulse Ox O2 Delivery O2 Flow Rate FiO2 03/07/17 09:45 100 T-piece 5.00 28 03/07/17 08:00 98.0 104 20 122/84 100 03/07/17 00:00 96.4 92 18 113/65 99 03/06/17 22:06 98 T-piece 6.00 28 03/06/17 21:30 T-Piece 6.00 Humidified 03/06/17 20:00 98.1 93 19 120/71 100 03/06/17 16:00 98.8 94 16 115/68 100 03/06/17 14:13 86 106/66 98 03/06/17 14:00 106/66 03/06/17 12:00 97.8 102 18 113/69 96 03/06/17 10:49 99 T-piece 5.00 28 I/O 03/06/17 03/06/17 03/06/17 03/07/17 03/07/17 03/07/17 07:00 15:00 23:00 07:00 15:00 23:00 Intake Total 386 ml 386 ml 500 ml 781 ml Output Total 650 ml 600 ml 200 ml 500 ml Balance -264 ml -214 ml 300 ml 281 ml Intake Oral 0 ml 0 ml 0 ml IV Total 0 ml Tube Feeding 286 ml 386 ml 500 ml 540 ml Tube Irrigant 241 ml Other 100 ml Output Urine Total 650 ml 600 ml 200 ml 500 ml # Bowel Movements 1 1 0 1 Result Diagram: 03/07/17 0629 03/07/17 0629 Procedures 01/02/16 PEG placement 01/02/16 tracheostomy 07/22/2016 Wide excision of sacral skin wound, biopsy of the cavity lining and debridement. PEG tube replacement 07/29/16 Objective Remarks GENERAL: SKIN: Warm and dry. HEAD: Atraumatic. Normocephalic. EYES: Pupils equal and round. No scleral icterus. No injection or drainage. ENT: No nasal bleeding or discharge. Mucous membranes pink and moist. NECK: Trachea midline. No JVD. CARDIOVASCULAR: Regular rate and rhythm. RESPIRATORY: No accessory muscle use. Clear to auscultation. Breath sounds equal bilaterally. GASTROINTESTINAL: Abdomen soft, non-tender, nondistended. Hepatic and splenic margins not palpable. MUSCULOSKELETAL: Extremities without clubbing, cyanosis, or edema. No obvious deformities. NEUROLOGICAL: Awake and alert. No obvious cranial nerve deficits. Motor grossly within normal limits. Five out of 5 muscle strength in the arms and legs. Normal speech. PSYCHIATRIC: Appropriate mood and affect; insight and judgment normal. Laboratory Tests Test 01/05/17 01/06/17 08:35 08:41 Red Blood Count 4.43 MIL/MM3 (4.50-5.90) Hemoglobin 9.9 GM/DL (13.0-17.0) Hematocrit 32.0 % (39.0-51.0) Mean Corpuscular Volume 72.1 FL (80.0-100.0) Mean Corpuscular Hemoglobin 22.3 PG (27.0-34.0) Mean Corpuscular Hemoglobin 30.9 % Concent (32.0-36.0) Red Cell Distribution Width 19.9 % (11.6-17.2) Sodium Level 134 MEQ/L 133 MEQ/L (136-145) (136-145) Random Glucose 136 MG/DL 132 MG/DL (74-106) (74-106) Creatinine 0.59 MG/DL (0.60-1.30) GENERAL: SKIN: Warm and dry. HEAD: Atraumatic. Normocephalic. EYES: Pupils equal and round. No scleral icterus. No injection or drainage. ENT: No nasal bleeding or discharge. Mucous membranes pink and moist. NECK: Trachea midline. No JVD. TRACH. [place] CARDIOVASCULAR: Regular rate and rhythm. RESPIRATORY: No accessory muscle use. Clear to auscultation. Breath sounds equal bilaterally. GASTROINTESTINAL: Abdomen soft, non-tender, nondistended. Hepatic and splenic margins not palpable. MUSCULOSKELETAL: Extremities without clubbing, cyanosis, or edema. No obvious deformities. NEUROLOGICAL: Awake and alert. No obvious cranial nerve deficits. Motor grossly within normal limits. Five out of 5 muscle strength in the arms and legs. Normal speech. PSYCHIATRIC: Appropriate mood and affect; insight and judgment normal. Assessment and Plan Assessment and Plan impression respiratory failure CVA S/P TRACHEOSTOMY HEMATURIA PLAN O2 NEEDED PULM. TOILET check path Brandon Taylor MD Mar 07, 2017 09:57
--- NOTE | 2017-03-07 10:10 | HHI.PR ---
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 Patient seen and examined today. Discussed with nursing staff - increased secretions overnight requiring frequent suctioning. Objective Vitals Vital Signs Date Time Temp Pulse Resp B/P Pulse Ox O2 Delivery O2 Flow Rate FiO2 03/07/17 09:45 100 T-piece 5.00 28 03/07/17 08:00 98.0 104 20 122/84 100 03/07/17 00:00 96.4 92 18 113/65 99 03/06/17 22:06 98 T-piece 6.00 28 03/06/17 21:30 T-Piece 6.00 Humidified 03/06/17 20:00 98.1 93 19 120/71 100 03/06/17 16:00 98.8 94 16 115/68 100 03/06/17 14:13 86 106/66 98 03/06/17 14:00 106/66 03/06/17 12:00 97.8 102 18 113/69 96 03/06/17 10:49 99 T-piece 5.00 28 I/O 03/06/17 03/06/17 03/06/17 03/07/17 03/07/17 03/07/17 07:00 15:00 23:00 07:00 15:00 23:00 Intake Total 386 ml 386 ml 500 ml 781 ml Output Total 650 ml 600 ml 200 ml 500 ml Balance -264 ml -214 ml 300 ml 281 ml Intake Oral 0 ml 0 ml 0 ml IV Total 0 ml Tube Feeding 286 ml 386 ml 500 ml 540 ml Tube Irrigant 241 ml Other 100 ml Output Urine Total 650 ml 600 ml 200 ml 500 ml # Bowel Movements 1 1 0 1 Result Diagram: 03/07/17 0629 03/07/17 0629 Imaging Last Impressions Abdomen/Pelvis CT 02/27/17 0000 Signed Impressions: Service Date/Time: February 02:24 - CONCLUSION: 1. Abdominal aortic aneurysm. 2. Bladder mass is noted on the right posteriorly with apparent extravesical extension and clot formation. 3. Left renal cyst. 4. Left lower lobe atelectasis. 5. Large sacral decubitus ulcer with bony destruction and sclerosis of the sacrum mid to left lateral portion in the region of S3 and inferiorly which would suggest chronic osteomyelitis in the appropriate clinical setting. Rajan Granados MD Soft Tissue Ultrasound 02/26/17 0000 Signed Impressions: Service Date/Time: Sunday, February 26, 2017 12:52 - CONCLUSION: 1. Just inferior to the G-tube in the left abdomen, there is a superficial 3.8 x 2.9 0.9 cm complex fluid collection in the subcutaneous tissues. 2. Findings are nonspecific. This could represent a small seroma or abscess. Would consider CT scan of the abdomen without contrast for further evaluation to determine if there is intraperitoneal extension. Bobby Gray MD Gastrostomy Tube Placement 02/25/17 0000 Signed Impressions: Service Date/Time: Saturday, February 25, 2017 14:19 - CONCLUSION: Uncomplicated exchange of gastroenteric feeding tube for gastrostomy tube as above. Positioning confirmed. The tube can be used immediately. Glen Zamora MD Chest X-Ray 02/22/17 0000 Signed Impressions: Service Date/Time: Wednesday, February 22, 2017 13:12 - CONCLUSION: Minimal atelectasis. Otherwise -1 view chest x-ray. Glen Moore MD Tube Change 02/14/17 0000 Signed Impressions: Service Date/Time: Tuesday, February 14, 2017 00:00 - CONCLUSION: Uncomplicated gastrojejunostomy tube exchange as above. Scott Griffin MD Head CT 01/09/17 0000 Signed Impressions: Service Date/Time: December 17:43 - CONCLUSION: 1. No acute hemorrhage or mass effect. 2. 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 3. Atrophy. Gerald Mukherjee MD CT Angiography 01/09/17 0000 Signed Impressions: Service Date/Time: December 17:49 - CONCLUSION: 1. No evidence of pulmonary emboli. 2. Patchy consolidation in both posterior lower lobes right greater than left. This could represent pneumonia. 3. 2 small noncalcified pulmonary nodules which are nonspecific finding. Short-term CT followup is recommended beginning in 6 months with a noncontrast outpatient CT. Gerald Mukherjee MD Tube Check 12/04/16 0000 Signed Impressions: Service Date/Time: Sunday, December 04, 2016 17:58 - CONCLUSION: Uncomplicated tube injection as above. the tube is in good position and functions normally. Moises Ramírez MD Abdomen X-Ray 08/31/16 0000 Signed Impressions: Service Date/Time: Wednesday, August 31, 2016 16:36 - CONCLUSION: 1. No acute findings. Mild constipation. Durga Dotson MD Head Magnetic Resonance Angiography 03/05/16 0000 Signed Impressions: Service Date/Time: Saturday, March 05, 2016 09:26 - CONCLUSION: Persistent high-grade subtotal occlusive stenotic lesions in the distal right vertebral artery and proximal basilar artery with significant improvement in flow and recanalization following initial presentation of thrombosis. Stable interstitial circulation without significant stenosis. Ernesto Kulkarni MD Brain MRI 03/05/16 0000 Signed Impressions: Service Date/Time: Saturday, March 05, 2016 09:26 - CONCLUSION: Evolving brainstem and bilateral occipital lobe infarcts with evidence of subacute hemorrhagic products. There is decreasing restricted diffusion and increasing loss of volume characteristic of a subacute to chronic infarct. No evidence of acute infarct, acute hemorrhage mass or edema. Ernesto Kulkarni MD Neck Magnetic Resonance Angiography 12/22/15 1445 Signed Impressions: Service Date/Time: Tuesday, December 22, 2015 09:22 - CONCLUSION: Variant origin of the left vertebral artery from the aortic arch. No evidence of carotid stenosis. Glen Zamora MD Head/Brain Mag Res Venography 12/22/15 0000 Signed Impressions: Service Date/Time: Tuesday, December 22, 2015 09:22 - CONCLUSION: Normal MRV. Jonel Jones Jr., MD Objective Remarks GENERAL: WDWN male, in no apparent distress. Nonverbal. Awake. Tracking some. Able to move left index finger slightly when asked to rail director. SKIN: Warm and dry. Right 1st toe s/p ingrown toe nail removal, healing well. HEENT: Normocephalic. Pupils nonicteric. Nose without bleeding. NECK: Trachea midline. T-tube in place, site clean, dry, intact. Thick whitish secretions noted in trach piece. CARDIOVASCULAR: Regular rate and rhythm without murmurs, gallops, or rubs. RESPIRATORY: Increased coarse breath sounds. Secretions white moderately thick. GASTROINTESTINAL: Abdomen soft, non-tender, nondistended. BS active x [address] tube in place, below incision site area slight erythema with associated fluctuance, no drainage noted. No open wound. Small amount of purulence around GJ tube site, improved. : Lopez catheter in place, no gross hematuria noted. Urine clear. MUSCULOSKELETAL: Extremities without clubbing, cyanosis, Bilateral feet +1 edema. Upper extremities slightly edematous. NEUROLOGICAL: Awake. Patient not following commands. Nonverbal. Procedures 07/22/2016 Wide excision of sacral skin wound, biopsy of the cavity lining and debridement. PEG removal and Gj tube placement 07/29/16 VAC changes- M-W-F 10/23/16, 11/18, 12/31- GJ tube replacement 01/02/16 PEG placement 01/02/16 tracheostomy 02/25/17 PEG replacement 03/03/17 Cystoscopy and palliative transurethral resection of bladder tumor greater than 5cm originating from the right bladder wall Medications and IVs Current Medications Medications (Trade) Dose Ordered Sig/Junior Route Start Time Stop Time Status Last Admin (NS Flush) 2 ml UNSCH PRN IVF 12/21/15 06:00 09/28/16 21:18 (Keppra Liq) 500 mg Q12HR TUBE 12/27/15 21:00 03/07/17 08:49 (Tylenol 650 Mg/ 20 ml Liq) 650 mg Q6H PRN TUBE 12/30/15 15:15 01/18/17 21:34 (Mycostatin Powder) 1 applic Q12HR TOPICAL 01/08/16 21:00 03/07/17 08:52 (Pill Splitter) 1 ea UNSCH PRN OTHER 01/14/16 08:30 (Acetic Acid 0.25% Irr Btl) 10 ml Q8HR IRRIGATION 02/05/16 16:00 03/07/17 06:14 (Paxil Liq) 20 mg DAILY@1900 PEG 03/12/16 19:00 03/06/17 18:08 (Zofran Inj) 4 mg Q6HR PRN IV PUSH 04/14/16 19:45 08/10/16 10:16 (Aspirin) 325 mg DAILY TUBE 05/27/16 11:40 Hold 02/25/17 08:28 (Heparin Inj) 5,000 units Q8HR SQ 06/11/16 14:00 02/25/17 13:23 (Baciguent Oint) 1 applic BID TOP 07/20/16 10:00 03/07/17 08:52 (Borden Angel Moran) 1 spray BID NASAL 08/01/16 21:00 03/07/17 08:53 (Tears Naturale Opth Soln) 1 drop BID EACH EYE 09/05/16 21:00 03/07/17 08:53 (Morphine Inj) 1 mg Q24H PRN IV PUSH 09/17/16 14:30 10/22/16 02:00 (Dulcolax Supp) 10 mg DAILY PRN RECTAL 09/26/16 15:30 12/08/16 09:17 (Tylenol - Codeine 120-12 Liq) 5 ml Q4H PRN G-TUBE 12/27/16 15:30 03/06/17 09:38 (Imodium Liq) 2 mg Q6H PRN PEG 12/27/16 15:30 01/24/17 20:05 (Milk Of Magnesia Liq) 30 ml DAILY PRN PEG 12/27/16 15:30 02/11/17 08:46 (Milk Of Magnesia Liq) 30 ml DAILY PEG 12/28/16 09:00 Hold 01/19/17 08:44 (Senna Liq) 8.8 mg DAILY@1600 PEG 12/27/16 16:00 03/02/17 16:54 (Lactulose Liq) 30 ml DAILY PRN PEG 12/27/16 15:30 (Cardizem) 30 mg QID PEG 01/09/17 18:00 03/07/17 08:50 (D50w (Vial) Inj) 50 ml UNSCH PRN IV 01/09/17 16:00 (Glucagon Inj) 1 mg UNSCH PRN OTHER 01/09/17 16:00 (Prevacid Odt) 30 mg BID NG 01/26/17 21:00 03/07/17 08:50 (Ashish Powder) 1 pack BID G-TUBE 02/10/17 21:00 03/07/17 08:53 (Ferrous Sulfate Liq) 300 mg DAILY PO 02/14/17 09:00 03/07/17 08:49 (Vitamin C) 1,000 mg DAILY PO 02/14/17 09:00 03/07/17 08:50 (Bacitracin Oint Packet) 0.9 gm DAILY TOPICAL 02/25/17 09:00 03/04/17 08:38 (Levsin) 0.25 mg Q4H G-TUBE 03/07/17 10:00 03/07/17 08:51 Date of Insertion: Feb 10, 2017 A/P Problem List: (1) CVA (cerebral vascular accident) ICD Code: I63.9 Status: Acute (2) A-fib ICD Code: I48.91 Status: Chronic (3) DM (diabetes mellitus) ICD Code: E11.9 Status: Chronic Assessment and Plan 60 year-old male with past medical history of paroxysmal A. fib, hypertension, stage III non-Hodgkin's lymphoma status post chemotherapy who came into the hospital with altered mental status. Gross Hematuria - Lopez change following cystoscopy procedure 03/03/17. - Hematuria appears resolved x 48hrs. Resume Heparin and ASA - Urology Consult appreciated. Recommends flushing Lopez catheter. - CT of the abdomen showed bladder mass right posteriorly with apparent extravesical extension and clot formation. - Urology spoke with family member, daughter, states that he's not recommending biopsy of the bladder mass. However daughter insisted on biopsy. Patient s/p cystoscopy and palliative transurethral resection of bladder tumor greater than 5 cm originating from right bladder wall performed by Dr. Sewell . Await biopsy results - path pending. - H&H dropped to 7.4/24.3. Improved status post transfusion. Hemoglobin appears stable. - Continue to flush lopez catheter PRN. Abdominal wound/ lesion - Below the GJ incision site. Appears unchanged from yesterday. Some purulence noted around PEG site, improved. - Wound Care consulted and recommends leaving open to air, imaging soft tissue ultrasound. - Continue Bacitracin - Ultrasound soft tissue surrounding area for possible fluid collection that would need I & D. - Soft tissue ultrasound showed 1. Just inferior to that the tube in the left abdomen, there is a superficial 3.8 x 2.9 0.9 cm complex fluid collection in the subcutaneous tissue. 2. Findings are nonspecific. This could represent a small seroma or abscess. Would consider CT scan of the abdomen with contrast for further evaluation and determine if there is an intraperitoneal extension. - CT of the abdomen showed 1. Abdominal aortic aneurysm. 2. Bladder mass is noted on the right posteriorly with apparent extravesical extension and clot formation. 3. Left renal cyst. 4. Left lower lobe atelectasis. 5. Large sacral decubitus ulcer with bony disruption and sclerosis of the sacrum mid to left lateral portion in the region of S3 and inferiorly which would suggest chronic osteomyelitis in the appropriate clinical setting. - No intraperitoneal extension noted for the wound, will possibly need bedside I&D. 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 Intermittently tracks with eyes. - Continue Keppra 500mg BID for seizure prophylaxis. Keppra level 17.8. - PT/OT signed off as patient is unable to participate. - On Paxil 20 by mouth daily for depression. - On acetaminophen with codeine for pain scale of 2-10. - Morphine 1 mg every 24 hours when necessary for dressing change Chronic respiratory failure secondary to CVA - Status post tracheostomy. Continue pulmonary toilet and bronchodilators as needed. Continue trach care, suctioning. Increased secretions. Levsin scheduled. CXR ordered. - Trach changed to size #6 XLT on 01/09 - Duo nebs every 4 hours while awake - Pulmonary currently following, appreciate assistance. - 01/09 CTA chest: No PE, bilateral lower lobe infiltrates. 4 mm right upper lobe/5 mm right middle lobe nodule. - CXR 02/22/17 reveals minimal atelectasis Right hallux ingrown toenail, paronychia- medial aspect 02/23/17 new area of paronychia right hallux ingrown toe nail lateral aspect - Sales Compensation Analyst has seen patient. I & D with partial nail avulsion performed at bedside 02/06/17. - Seen by podiatry. Plan is to aggressively cut the nail back. - Resolved Atrial fibrillation, controlled Hypertension Dyslipidemia - Continue rate control with Cardizem and metoprolol. - Echocardiogram in November 2015 shows preserved ejection fraction. Coumadin discontinued secondary to bleeding. - Continue aspirin History of non-Hodgkin's lymphoma - Status post brain biopsy on December 13 by neurosurgery. Pathology consistent with acute infarct without evidence of lymphoma. Oncology has signed off. Diabetes mellitus Type 2 - Hemoglobin A1c is 5.5. - Fingersticks have been stable and were DC'd 02/01/17 Decubitus ulcer stage IV - Continue wound care, twice-daily dressing changes. Wound care recommendations last updated 12/12/16. Continue pressure relief measures including turning and positioning. Patient's family has declined a diverting colostomy. Previous Wound culture growing Klebsiella and Enterococcus Faecalis. Previously on Augmentin. Status post wide excision of sacral skin and biopsy of the cavity lining with debridement on 07/22/16. - Wound care last saw patient on 01/17/17, no new recommendations continue packing with Betadine moistened rolled Janis and covered with ABD pad and paper tape to secure. - Continue to monitor. Continue pressure-relief. - Morphine 1 mg every 24 hours when necessary for dressing change Protein calorie malnutrition Gastroesophageal reflux disease Gastric ulcer, reflux esophagitis Diarrhea, negative for C. difficile. Improved - EGD on 07/30/16 showed gastric ulcers. - On Prevacid 30 mg Q12, on tube feeds(Jevity 1.5 at 55 ml/hr) - Continue bowel regimen with hold parameters, Lactinex and Imodium. - G/J tube clogged, IR consulted to evaluate. Replaced on 02/25/17 - Reiterated proper G/J tube care and flush procedures. Discuss and explained with family. UTI pseudomonas aeruginosa Recurrent - Previous Repeat Ucx 08/28/16 negative. - 02/22/17 UA consistent with UTI - cultures pseudomonas, currently on Rocephin will change to cefepime since last culture was also Pseudomonas and was sensitive to cefepime. - Sensitivities came back, was switched over to Zosyn as cultures are not sensitive to cefepime. Completed. Klebsiella/Pseudomonas/staph aureus HCAP PSAE UTI - S/p Cefepime. Monitor for signs of infections. - strep pneumonia and Legionella urinary Ag is negative - C-diff PCR negative on 01/13 - 01/09 BC : Staph Epi, Urine cx: Pseudomonas, Sputum cx: Pseudomonas, kleb, Staph. - Patient was pancultured on 01/19 (Blood, sputum, urine) NGTD in urine and blood. Sputum + for pseudomonas. Patient has a placement for [place]. Plan for discharge was held for now in lieu of ongoing hematuria, urology consult for hematuria. DVT prophylaxis: SCDs. Heparin 5,000 units sq Q8hr Discussed with nursing staff and Dr. Pruitt Problem Qualifiers (1) CVA (cerebral vascular accident): (2) DM (diabetes mellitus): Jaz Peraza 18, 2017 10:10
--- NOTE | 2017-03-07 11:06 | RADRPT ---
EXAM DATE/TIME: 03/07/2017 10:24 [facility] COMPARISON: CHEST SINGLE AP, February 22, 2017, 13:12. INDICATIONS : Short of breath, congestion MEDICAL HISTORY : Stroke. Aneurysm, abdominal. Lymphoma. A-fib, diabetes, bladder mass SURGICAL HISTORY : unobtainable ENCOUNTER: Subsequent ACUITY: 3 days PAIN SCORE: Non-responsive. LOCATION: Bilateral chest FINDINGS: A single AP portable semierect view of the chest was obtained and again demonstrates a tracheostomy t ube in place. There is mild streaky opacity at the lung bases with no focal consolidation or effusion . The heart size is within normal limits. There are multiple old healed left-sided rib fractures. CONCLUSION: Mild streaky opacity at the lung bases most are cystic of atelectasis. Gerald Mukherjee MD on March 07, 2017 at 11:03 Board Certified Radiologist. This report was verified electronically.
[2017-03-07] MEDS: RESP: ALBUTEROL 2.5 MG/IPRATROPIUM 0.5 MG NEB (SCH) NEB ×2 (13:17→15:51)
[2017-03-07] MEDS: HEPARIN SODIUM - SQ 10,000 UNITS/ML VIAL SQ SCH ×2 (13:20→21:40)
[2017-03-07] MEDS: SENNOSIDES SYRUP 8.8 MG/5 ML CUP PEG SCH (16:36)
[2017-03-07] MEDS: PARoxetine HCL SUSP 20 MG/10 ML UDC PEG SCH (18:30)
[2017-03-08] VITALS: BP 141/78; PULSE 101; RESP 18; TEMP 98.3; O2SAT 100
[2017-03-08] MEDS: HYOSCYAMINE 0.125 MG TAB G-TUBE SCH ×6 (03:19→22:03)
[2017-03-08] MEDS: HEPARIN SODIUM - SQ 10,000 UNITS/ML VIAL SQ SCH ×3 (06:22→22:04)
[2017-03-08] MEDS: ACETIC ACID 0.25% SOLN 1000 ML IRR BTL IRRIGATION SCH ×3 (06:22→22:00)
[2017-03-08 08:00] VITALS: BP 115/68; PULSE 100; RESP 23; TEMP 98.2; O2SAT 100
[2017-03-08] MEDS: RESP: ALBUTEROL 2.5 MG/IPRATROPIUM 0.5 MG NEB (SCH) NEB ×5 (08:00→22:02)
[2017-03-08] MEDS: LANSOPRAZOLE SOLUTAB 30 MG TAB NG SCH ×2 (08:07→22:03)
[2017-03-08] MEDS: DILTIAZEM HCL 30 MG TAB PEG SCH ×4 (08:08→21:00)
[2017-03-08] MEDS: ASCORBIC ACID 500 MG TAB PO SCH (08:08)
[2017-03-08] MEDS: FERROUS SULFATE 300 MG /5ML UDC PO SCH (08:08)
[2017-03-08] MEDS: levETIRAcetam 500 MG/5 ML UDC TUBE SCH ×2 (08:10→22:03)
[2017-03-08] MEDS: JUVEN POWDER 1 PACK G-TUBE SCH ×2 (08:11→21:00)
[2017-03-08] MEDS: ARTIFICIAL TEARS OPTH SOLN 15 ML BTL EACH EYE SCH ×2 (08:11→22:05)
[2017-03-08] MEDS: NYSTATIN 100,000 U/GM PWD 15 GM BTL TOPICAL SCH ×2 (08:11→22:05)
[2017-03-08] MEDS: SODIUM CHLORIDE 0.65% NASAL SPRAY 45 ML BTL NASAL SCH ×2 (08:11→22:05)
[2017-03-08] MEDS: BACITRACIN TOP OINT 15 GM TUBE TOP SCH ×2 (08:11→22:05)
[2017-03-08] MEDS: BACITRACIN OINT 0.9 GM PKT TOPICAL SCH (08:12)
--- NOTE | 2017-03-08 11:36 | HHI.PR ---
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 Patient seen and examined today. Secretions improved with increased dose of Levsin. Bladder bx (+)small cell ca. Dr. Pruitt discussed at length with mother and sister who have requested to discuss options with both Oncology and Urology. Objective Vitals Vital Signs Date Time Temp Pulse Resp B/P Pulse Ox O2 Delivery O2 Flow Rate FiO2 03/08/17 09:02 T-piece 28 03/08/17 08:29 Trach Collar 03/08/17 08:00 98.2 100 23 115/68 100 03/08/17 00:00 98.3 101 18 141/78 100 03/07/17 21:40 T-Piece 5.00 Humidified 03/07/17 20:00 97.8 97 18 106/69 98 03/07/17 16:00 98.9 97 22 118/71 97 03/07/17 15:55 100 T-piece 5.00 28 03/07/17 12:00 98.0 96 20 118/72 100 I/O 03/07/17 03/07/17 03/07/17 03/08/17 03/08/17 03/08/17 07:00 15:00 23:00 07:00 15:00 23:00 Intake Total 781 ml 793 ml 641 ml 841 ml Output Total 500 ml 1350 ml 700 ml 500 ml Balance 281 ml -557 ml -59 ml 341 ml Intake Oral 0 ml 0 ml 0 ml IV Total 0 ml 0 ml Tube Feeding 540 ml 438 ml 340 ml 505 ml Tube Irrigant 241 ml 120 ml 120 ml 120 ml Other 235 ml 181 ml 216 ml Output Urine Total 500 ml 1350 ml 700 ml 500 ml # Bowel Movements 1 0 0 1 Result Diagram: 03/07/17 0629 03/07/17 0629 Imaging Last Impressions Chest X-Ray 03/07/17 0000 Signed Impressions: Service Date/Time: Tuesday, March 07, 2017 10:24 - CONCLUSION: Mild streaky opacity at the lung bases most are cystic of atelectasis. Gerald Mukherjee MD Abdomen/Pelvis CT 02/27/17 0000 Signed Impressions: Service Date/Time: February 02:24 - CONCLUSION: 1. Abdominal aortic aneurysm. 2. Bladder mass is noted on the right posteriorly with apparent extravesical extension and clot formation. 3. Left renal cyst. 4. Left lower lobe atelectasis. 5. Large sacral decubitus ulcer with bony destruction and sclerosis of the sacrum mid to left lateral portion in the region of S3 and inferiorly which would suggest chronic osteomyelitis in the appropriate clinical setting. Rajan Granados MD Soft Tissue Ultrasound 02/26/17 0000 Signed Impressions: Service Date/Time: Sunday, February 26, 2017 12:52 - CONCLUSION: 1. Just inferior to the G-tube in the left abdomen, there is a superficial 3.8 x 2.9 0.9 cm complex fluid collection in the subcutaneous tissues. 2. Findings are nonspecific. This could represent a small seroma or abscess. Would consider CT scan of the abdomen without contrast for further evaluation to determine if there is intraperitoneal extension. Bobby Gray MD Gastrostomy Tube Placement 02/25/17 0000 Signed Impressions: Service Date/Time: Saturday, February 25, 2017 14:19 - CONCLUSION: Uncomplicated exchange of gastroenteric feeding tube for gastrostomy tube as above. Positioning confirmed. The tube can be used immediately. Glen Zamora MD Tube Change 02/14/17 0000 Signed Impressions: Service Date/Time: Tuesday, February 14, 2017 00:00 - CONCLUSION: Uncomplicated gastrojejunostomy tube exchange as above. Scott Griffin MD Head CT 01/09/17 0000 Signed Impressions: Service Date/Time: December 17:43 - CONCLUSION: 1. No acute hemorrhage or mass effect. 2. 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 3. Atrophy. Gerald Mukherjee MD CT Angiography 01/09/17 0000 Signed Impressions: Service Date/Time: December 17:49 - CONCLUSION: 1. No evidence of pulmonary emboli. 2. Patchy consolidation in both posterior lower lobes right greater than left. This could represent pneumonia. 3. 2 small noncalcified pulmonary nodules which are nonspecific finding. Short-term CT followup is recommended beginning in 6 months with a noncontrast outpatient CT. Gerald Mukherjee MD Tube Check 12/04/16 0000 Signed Impressions: Service Date/Time: Sunday, December 04, 2016 17:58 - CONCLUSION: Uncomplicated tube injection as above. the tube is in good position and functions normally. Moises Ramírez MD Abdomen X-Ray 08/31/16 0000 Signed Impressions: Service Date/Time: Wednesday, August 31, 2016 16:36 - CONCLUSION: 1. No acute findings. Mild constipation. Durga Dotson MD Head Magnetic Resonance Angiography 03/05/16 0000 Signed Impressions: Service Date/Time: Saturday, March 05, 2016 09:26 - CONCLUSION: Persistent high-grade subtotal occlusive stenotic lesions in the distal right vertebral artery and proximal basilar artery with significant improvement in flow and recanalization following initial presentation of thrombosis. Stable interstitial circulation without significant stenosis. Ernesto Kulkarni MD Brain MRI 03/05/16 0000 Signed Impressions: Service Date/Time: Saturday, March 05, 2016 09:26 - CONCLUSION: Evolving brainstem and bilateral occipital lobe infarcts with evidence of subacute hemorrhagic products. There is decreasing restricted diffusion and increasing loss of volume characteristic of a subacute to chronic infarct. No evidence of acute infarct, acute hemorrhage mass or edema. Ernesto Kulkarni MD Neck Magnetic Resonance Angiography 12/22/15 1445 Signed Impressions: Service Date/Time: Tuesday, December 22, 2015 09:22 - CONCLUSION: Variant origin of the left vertebral artery from the aortic arch. No evidence of carotid stenosis. Glen Zamora MD Head/Brain Mag Res Venography 12/22/15 0000 Signed Impressions: Service Date/Time: Tuesday, December 22, 2015 09:22 - CONCLUSION: Normal MRV. Jonel Jones Jr., MD Objective Remarks GENERAL: WDWN male, in no apparent distress. Nonverbal. Awake. Tracking. SKIN: Warm and dry. Right 1st toe s/p ingrown toe nail removal, healing well. HEENT: Normocephalic. Pupils nonicteric. Nose without bleeding. NECK: Trachea midline. T-tube in place, site clean, dry, intact. Thick whitish secretions noted in trach piece. CARDIOVASCULAR: Regular rate and rhythm without murmurs, gallops, or rubs. RESPIRATORY: Increased coarse breath sounds. Secretions white moderately thick. GASTROINTESTINAL: Abdomen soft, non-tender, nondistended. BS active x [address] tube in place, below incision site area slight erythema with associated fluctuance, no drainage noted. No open wound. Small amount of purulence around GJ tube site, same. : Lopez catheter in place with clear yellow urine in the bag. MUSCULOSKELETAL: Extremities without clubbing, cyanosis, Bilateral feet +1 edema. Upper extremities slightly edematous. NEUROLOGICAL: Awake. Patient not following commands. Nonverbal. Procedures 07/22/2016 Wide excision of sacral skin wound, biopsy of the cavity lining and debridement. PEG removal and Gj tube placement 07/29/16 VAC changes- M-W-F 10/23/16, 11/18, 12/31- GJ tube replacement 01/02/16 PEG placement 01/02/16 tracheostomy 02/25/17 PEG replacement 03/03/17 Cystoscopy and palliative transurethral resection of bladder tumor greater than 5cm originating from the right bladder wall Medications and IVs Current Medications Medications (Trade) Dose Ordered Sig/Junior Route Start Time Stop Time Status Last Admin (NS Flush) 2 ml UNSCH PRN IVF 12/21/15 06:00 09/28/16 21:18 (Keppra Liq) 500 mg Q12HR TUBE 12/27/15 21:00 03/08/17 08:10 (Tylenol 650 Mg/ 20 ml Liq) 650 mg Q6H PRN TUBE 12/30/15 15:15 01/18/17 21:34 (Mycostatin Powder) 1 applic Q12HR TOPICAL 01/08/16 21:00 03/08/17 08:11 (Pill Splitter) 1 ea UNSCH PRN OTHER 01/14/16 08:30 (Acetic Acid 0.25% Irr Btl) 10 ml Q8HR IRRIGATION 02/05/16 16:00 03/08/17 06:22 (Paxil Liq) 20 mg DAILY@1900 PEG 03/12/16 19:00 03/07/17 18:30 (Zofran Inj) 4 mg Q6HR PRN IV PUSH 04/14/16 19:45 08/10/16 10:16 (Aspirin) 325 mg DAILY TUBE 05/27/16 11:40 Hold 02/25/17 08:28 (Heparin Inj) 5,000 units Q8HR SQ 06/11/16 14:00 03/08/17 06:22 (Baciguent Oint) 1 applic BID TOP 07/20/16 10:00 03/08/17 08:11 (Croom Angel [place]) 1 spray BID NASAL 08/01/16 21:00 03/08/17 08:11 (Tears Naturale Opth Soln) 1 drop BID EACH EYE 09/05/16 21:00 03/08/17 08:11 (Morphine Inj) 1 mg Q24H PRN IV PUSH 09/17/16 14:30 10/22/16 02:00 (Dulcolax Supp) 10 mg DAILY PRN RECTAL 09/26/16 15:30 12/08/16 09:17 (Tylenol - Codeine 120-12 Liq) 5 ml Q4H PRN G-TUBE 12/27/16 15:30 03/06/17 09:38 (Imodium Liq) 2 mg Q6H PRN PEG 12/27/16 15:30 01/24/17 20:05 (Milk Of Magnesia Liq) 30 ml DAILY PRN PEG 12/27/16 15:30 02/11/17 08:46 (Milk Of Magnesia Liq) 30 ml DAILY PEG 12/28/16 09:00 Hold 01/19/17 08:44 (Senna Liq) 8.8 mg DAILY@1600 PEG 12/27/16 16:00 03/07/17 16:36 (Lactulose Liq) 30 ml DAILY PRN PEG 12/27/16 15:30 (Cardizem) 30 mg QID PEG 01/09/17 18:00 03/08/17 08:08 (D50w (Vial) Inj) 50 ml UNSCH PRN IV 01/09/17 16:00 (Glucagon Inj) 1 mg UNSCH PRN OTHER 01/09/17 16:00 (Prevacid Odt) 30 mg BID NG 01/26/17 21:00 03/08/17 08:07 (Ashish Powder) 1 pack BID G-TUBE 02/10/17 21:00 03/08/17 08:11 (Ferrous Sulfate Liq) 300 mg DAILY PO 02/14/17 09:00 03/08/17 08:08 (Vitamin C) 1,000 mg DAILY PO 02/14/17 09:00 03/08/17 08:08 (Bacitracin Oint Packet) 0.9 gm DAILY TOPICAL 02/25/17 09:00 03/04/17 08:38 (Levsin) 0.25 mg Q4H G-TUBE 03/07/17 10:00 03/08/17 09:46 Date of Insertion: Feb 10, 2017 A/P Problem List: (1) CVA (cerebral vascular accident) ICD Code: I63.9 Status: Acute (2) A-fib ICD Code: I48.91 Status: Chronic (3) DM (diabetes mellitus) ICD Code: E11.9 Status: Chronic Assessment and Plan 60 year-old male with past medical history of paroxysmal A. fib, hypertension, stage III non-Hodgkin's lymphoma status post chemotherapy who came into the hospital with altered mental status. Gross Hematuria - Lopez change following cystoscopy procedure 03/03/17. - Hematuria appears resolved x 48hrs. Heparin and ASA resumed. No resumption of hematuria noted. - Urology Consult appreciated. Recommends flushing Lopez catheter. - CT of the abdomen showed bladder mass right posteriorly with apparent extravesical extension and clot formation. - Urology spoke with family member, daughter, states that he's not recommending biopsy of the bladder mass. However daughter insisted on biopsy. Patient s/p cystoscopy and palliative transurethral resection of bladder tumor greater than 5 cm originating from right bladder wall performed by Dr. Sewell . 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 Dr. Pruitt discussed at length with sister and daughter at the bedside who have requested consultations from Urology and Oncology to consider all the options available. Oncology consult placed. Requested nursing staff reach out to Dr. Springer to discuss results/options. Will also discuss with the family palliative care consultation. - H&H dropped to 7.4/24.3. Improved status post transfusion. Hemoglobin appears stable. - Continue to flush lopez catheter PRN. Abdominal wound/ lesion - Below the GJ incision site. Appears unchanged from yesterday. Some purulence noted around PEG site, appears same. - Wound Care consulted and recommends leaving open to air, imaging soft tissue ultrasound. - Continue Bacitracin - Ultrasound soft tissue surrounding area for possible fluid collection that would need I & D. - Soft tissue ultrasound showed 1. Just inferior to that the tube in the left abdomen, there is a superficial 3.8 x 2.9 0.9 cm complex fluid collection in the subcutaneous tissue. 2. Findings are nonspecific. This could represent a small seroma or abscess. Would consider CT scan of the abdomen with contrast for further evaluation and determine if there is an intraperitoneal extension. - CT of the abdomen showed 1. Abdominal aortic aneurysm. 2. Bladder mass is noted on the right posteriorly with apparent extravesical extension and clot formation. 3. Left renal cyst. 4. Left lower lobe atelectasis. 5. Large sacral decubitus ulcer with bony disruption and sclerosis of the sacrum mid to left lateral portion in the region of S3 and inferiorly which would suggest chronic osteomyelitis in the appropriate clinical setting. - No intraperitoneal extension noted for the wound, will possibly need bedside I&D. 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 Intermittently tracks with eyes. - Continue Keppra 500mg BID for seizure prophylaxis. Keppra level 17.8. - PT/OT signed off as patient is unable to participate. - On Paxil 20 by mouth daily for depression. - On acetaminophen with codeine for pain scale of 2-10. - Morphine 1 mg every 24 hours when necessary for dressing change Chronic respiratory failure secondary to CVA - Status post tracheostomy. Continue pulmonary toilet and bronchodilators as needed. Continue trach care, suctioning. Increased secretions improved with scheduled Levsin. CXR personally reviewed showinag mild streaky opacity at the lung bases with no focal consolidation or effusion. Pulmonary toilet. Monitor. - Trach changed to size #6 XLT on 01/09 - Duo nebs every 4 hours while awake - Pulmonary currently following, appreciate assistance. - 01/09 CTA chest: No PE, bilateral lower lobe infiltrates. 4 mm right upper lobe/5 mm right middle lobe nodule. - CXR 02/22/17 reveals minimal atelectasis Right hallux ingrown toenail, paronychia- medial aspect 02/23/17 new area of paronychia right hallux ingrown toe nail lateral aspect - [employer] has seen patient. I & D with partial nail avulsion performed at bedside 02/06/17. - Seen by podiatry. Plan is to aggressively cut the nail back. - Resolved Atrial fibrillation, controlled Hypertension Dyslipidemia - Continue rate control with Cardizem and metoprolol. - Echocardiogram in November 2015 shows preserved ejection fraction. Coumadin discontinued secondary to bleeding. - Continue aspirin History of non-Hodgkin's lymphoma - Status post brain biopsy on December 13 by neurosurgery. Pathology consistent with acute infarct without evidence of lymphoma. Oncology has signed off. Diabetes mellitus Type 2 - Hemoglobin A1c is 5.5. - Fingersticks have been stable and were DC'd 02/01/17 Decubitus ulcer stage IV - Continue wound care, twice-daily dressing changes. Wound care recommendations last updated 12/12/16. Continue pressure relief measures including turning and positioning. Patient's family has declined a diverting colostomy. Previous Wound culture growing Klebsiella and Enterococcus Faecalis. Previously on Augmentin. Status post wide excision of sacral skin and biopsy of the cavity lining with debridement on 07/22/16. - Wound care last saw patient on 01/17/17, no new recommendations continue packing with Betadine moistened rolled Janis and covered with ABD pad and paper tape to secure. - Continue to monitor. Continue pressure-relief. - Morphine 1 mg every 24 hours when necessary for dressing change Protein calorie malnutrition Gastroesophageal reflux disease Gastric ulcer, reflux esophagitis Diarrhea, negative for C. difficile. Improved - EGD on 07/30/16 showed gastric ulcers. - On Prevacid 30 mg Q12, on tube feeds(Jevity 1.5 at 55 ml/hr) - Continue bowel regimen with hold parameters, Lactinex and Imodium. - G/J tube clogged, IR consulted to evaluate. Replaced on 02/25/17 - Reiterated proper G/J tube care and flush procedures. Discuss and explained with family. UTI pseudomonas aeruginosa Recurrent - Previous Repeat Ucx 08/28/16 negative. - 02/22/17 UA consistent with UTI - cultures pseudomonas, currently on Rocephin will change to cefepime since last culture was also Pseudomonas and was sensitive to cefepime. - Sensitivities came back, was switched over to Zosyn as cultures are not sensitive to cefepime. Completed. Klebsiella/Pseudomonas/staph aureus HCAP PSAE UTI - S/p Cefepime. Monitor for signs of infections. - strep pneumonia and Legionella urinary Ag is negative - C-diff PCR negative on 01/13 - 01/09 BC : Staph Epi, Urine cx: Pseudomonas, Sputum cx: Pseudomonas, kleb, Staph. - Patient was pancultured on 01/19 (Blood, sputum, urine) NGTD in urine and blood. Sputum + for pseudomonas. DVT prophylaxis: SCDs. Heparin 5,000 units sq Q8hr Discussed with nursing staff, mother, sister and Dr. Pruitt Problem Qualifiers (1) CVA (cerebral vascular accident): (2) DM (diabetes mellitus): Jaz Peraza Mar 08, 2017 11:36
[2017-03-08 12:00] VITALS: BP 122/76; PULSE 104; RESP 20; TEMP 95.9; O2SAT 99
[2017-03-08] MEDS: SENNOSIDES SYRUP 8.8 MG/5 ML CUP PEG SCH (15:50)
[2017-03-08 16:00] VITALS: BP 116/69; PULSE 93; RESP 20; TEMP 96.3; O2SAT 98
[2017-03-08] MEDS: PARoxetine HCL SUSP 20 MG/10 ML UDC PEG SCH (18:41)
[2017-03-08 20:00] VITALS: BP 108/68; PULSE 90; RESP 18; TEMP 96.9; O2SAT 100
[2017-03-08 22:02] VITALS: O2SAT 100
[2017-03-09] VITALS (7 sets, daily range): BP systolic 106–116; BP diastolic 63–74; PULSE 97–113; RESP 18–20; TEMP 96.2–98.2; O2SAT 97–100
[2017-03-09] MEDS: HYOSCYAMINE 0.125 MG TAB G-TUBE SCH ×4 (02:44→20:44)
[2017-03-09] MEDS: HEPARIN SODIUM - SQ 10,000 UNITS/ML VIAL SQ SCH ×3 (05:35→21:03)
[2017-03-09] MEDS: ACETIC ACID 0.25% SOLN 1000 ML IRR BTL IRRIGATION SCH ×3 (05:55→21:03)
[2017-03-09] MEDS: RESP: ALBUTEROL 2.5 MG/IPRATROPIUM 0.5 MG NEB (SCH) NEB ×4 (08:35→21:42)
[2017-03-09] MEDS: NYSTATIN 100,000 U/GM PWD 15 GM BTL TOPICAL SCH ×2 (09:45→21:00)
[2017-03-09] MEDS: ARTIFICIAL TEARS OPTH SOLN 15 ML BTL EACH EYE SCH ×2 (09:45→20:53)
[2017-03-09] MEDS: ASCORBIC ACID 500 MG TAB PO SCH (09:45)
[2017-03-09] MEDS: LANSOPRAZOLE SOLUTAB 30 MG TAB NG SCH ×2 (09:45→20:44)
[2017-03-09] MEDS: DILTIAZEM HCL 30 MG TAB PEG SCH ×4 (09:45→20:43)
[2017-03-09] MEDS: BACITRACIN TOP OINT 15 GM TUBE TOP SCH ×2 (09:45→21:00)
[2017-03-09] MEDS: levETIRAcetam 500 MG/5 ML UDC TUBE SCH ×2 (09:45→20:43)
[2017-03-09] MEDS: JUVEN POWDER 1 PACK G-TUBE SCH ×2 (09:45→20:52)
[2017-03-09] MEDS: SODIUM CHLORIDE 0.65% NASAL SPRAY 45 ML BTL NASAL SCH ×2 (09:45→20:53)
[2017-03-09] MEDS: FERROUS SULFATE 300 MG /5ML UDC PO SCH (09:45)
[2017-03-09] MEDS: BACITRACIN OINT 0.9 GM PKT TOPICAL SCH (09:45)
--- NOTE | 2017-03-09 14:31 | HHI.PR ---
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 Patient seen and examined today. Discussed with nursing staff. No acute issues overnight. Objective Vitals Vital Signs Date Time Temp Pulse Resp B/P (MAP) Pulse Ox O2 Delivery O2 Flow Rate FiO2 03/09/17 12:00 98.2 113 20 108/73 (85) 97 03/09/17 08:00 96.3 97 20 116/74 (88) 100 03/09/17 00:00 97.6 106 18 106/67 (80) 99 03/08/17 22:02 100 T-piece 6.00 28 03/08/17 21:30 Trach Collar T-Piece Humidified 03/08/17 20:00 96.9 90 18 108/68 (81) 100 03/08/17 16:00 96.3 93 20 116/69 (85) 98 I/O 03/08/17 03/08/17 03/08/17 03/09/17 03/09/17 03/09/17 07:00 15:00 23:00 07:00 15:00 23:00 Intake Total 841 ml 1081 ml 482 ml 453 ml Output Total 500 ml 0 ml 900 ml 1700 ml Balance 341 ml 1081 ml -418 ml -1247 ml Intake Oral 0 ml 350 ml 0 ml 0 ml IV Total 0 ml Tube Feeding 505 ml 731 ml 482 ml 453 ml Tube Irrigant 120 ml Other 216 ml Output Urine Total 500 ml 0 ml 900 ml 1700 ml # Bowel Movements 1 2 2 1 Result Diagram: 03/07/17 0629 03/07/17 0629 Imaging Last Impressions Chest X-Ray 03/07/17 0000 Signed Impressions: Service Date/Time: Tuesday, March 07, 2017 10:24 - CONCLUSION: Mild streaky opacity at the lung bases most are cystic of atelectasis. Gerald Mukherjee MD Abdomen/Pelvis CT 02/27/17 0000 Signed Impressions: Service Date/Time: February 02:24 - CONCLUSION: 1. Abdominal aortic aneurysm. 2. Bladder mass is noted on the right posteriorly with apparent extravesical extension and clot formation. 3. Left renal cyst. 4. Left lower lobe atelectasis. 5. Large sacral decubitus ulcer with bony destruction and sclerosis of the sacrum mid to left lateral portion in the region of S3 and inferiorly which would suggest chronic osteomyelitis in the appropriate clinical setting. Rajan Granados MD Soft Tissue Ultrasound 02/26/17 0000 Signed Impressions: Service Date/Time: Sunday, February 26, 2017 12:52 - CONCLUSION: 1. Just inferior to the G-tube in the left abdomen, there is a superficial 3.8 x 2.9 0.9 cm complex fluid collection in the subcutaneous tissues. 2. Findings are nonspecific. This could represent a small seroma or abscess. Would consider CT scan of the abdomen without contrast for further evaluation to determine if there is intraperitoneal extension. Bobby Gray MD Gastrostomy Tube Placement 02/25/17 0000 Signed Impressions: Service Date/Time: Saturday, February 25, 2017 14:19 - CONCLUSION: Uncomplicated exchange of gastroenteric feeding tube for gastrostomy tube as above. Positioning confirmed. The tube can be used immediately. Glen Zamora MD Tube Change 02/14/17 0000 Signed Impressions: Service Date/Time: Tuesday, February 14, 2017 00:00 - CONCLUSION: Uncomplicated gastrojejunostomy tube exchange as above. Scott Griffin MD Head CT 01/09/17 0000 Signed Impressions: Service Date/Time: December 17:43 - CONCLUSION: 1. No acute hemorrhage or mass effect. 2. 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 3. Atrophy. Gerald Mukherjee MD CT Angiography 01/09/17 0000 Signed Impressions: Service Date/Time: December 17:49 - CONCLUSION: 1. No evidence of pulmonary emboli. 2. Patchy consolidation in both posterior lower lobes right greater than left. This could represent pneumonia. 3. 2 small noncalcified pulmonary nodules which are nonspecific finding. Short-term CT followup is recommended beginning in 6 months with a noncontrast outpatient CT. Gerald Mukherjee MD Tube Check 12/04/16 0000 Signed Impressions: Service Date/Time: Sunday, December 04, 2016 17:58 - CONCLUSION: Uncomplicated tube injection as above. the tube is in good position and functions normally. Moises Ramírez MD Abdomen X-Ray 08/31/16 0000 Signed Impressions: Service Date/Time: Wednesday, August 31, 2016 16:36 - CONCLUSION: 1. No acute findings. Mild constipation. Durga Dotson MD Head Magnetic Resonance Angiography 03/05/16 0000 Signed Impressions: Service Date/Time: Saturday, March 05, 2016 09:26 - CONCLUSION: Persistent high-grade subtotal occlusive stenotic lesions in the distal right vertebral artery and proximal basilar artery with significant improvement in flow and recanalization following initial presentation of thrombosis. Stable interstitial circulation without significant stenosis. Ernesto Kulkarni MD Brain MRI 03/05/16 0000 Signed Impressions: Service Date/Time: Saturday, March 05, 2016 09:26 - CONCLUSION: Evolving brainstem and bilateral occipital lobe infarcts with evidence of subacute hemorrhagic products. There is decreasing restricted diffusion and increasing loss of volume characteristic of a subacute to chronic infarct. No evidence of acute infarct, acute hemorrhage mass or edema. Ernesto Kulkarni MD Neck Magnetic Resonance Angiography 12/22/15 1445 Signed Impressions: Service Date/Time: Tuesday, December 22, 2015 09:22 - CONCLUSION: Variant origin of the left vertebral artery from the aortic arch. No evidence of carotid stenosis. Glen Zamora MD Head/Brain Mag Res Venography 12/22/15 0000 Signed Impressions: Service Date/Time: Tuesday, December 22, 2015 09:22 - CONCLUSION: Normal MRV. Jonel Jones Jr., MD Objective Remarks GENERAL: WDWN male, in no apparent distress. Nonverbal. Asleep but easily awakens to voice. Tracking. SKIN: Warm and dry. Right 1st toe s/p ingrown toe nail removal, healing well. HEENT: Normocephalic. Pupils nonicteric. Nose without bleeding. NECK: Trachea midline. T-tube in place, site clean, dry, intact. Less secretions noted in trach piece. CARDIOVASCULAR: Regular rate and rhythm without murmurs, gallops, or rubs. RESPIRATORY: Coarse BS, improved. GASTROINTESTINAL: Abdomen soft, non-tender, nondistended. BS active x [address] tube in place, below incision site area slight erythema with associated fluctuance, no drainage noted. No open wound. Small amount of purulence around GJ tube site, same. : Lopez catheter in place with clear yellow urine in the bag. MUSCULOSKELETAL: Extremities without clubbing, cyanosis, Bilateral feet +1 edema. Upper extremities slightly edematous. NEUROLOGICAL: Awake. Patient not following commands. Nonverbal. Procedures 07/22/2016 Wide excision of sacral skin wound, biopsy of the cavity lining and debridement. PEG removal and Gj tube placement 07/29/16 VAC changes- M-W-F 10/23/16, 11/18, 12/31- GJ tube replacement 01/02/16 PEG placement 01/02/16 tracheostomy 02/25/17 PEG replacement 03/03/17 Cystoscopy and palliative transurethral resection of bladder tumor greater than 5cm originating from the right bladder wall Medications and IVs Current Medications Medications (Trade) Dose Ordered Sig/Junior Route Start Time Stop Time Status Last Admin (NS Flush) 2 ml UNSCH PRN IVF 12/21/15 06:00 09/28/16 21:18 (Keppra Liq) 500 mg Q12HR TUBE 12/27/15 21:00 03/09/17 09:45 (Tylenol 650 Mg/ 20 ml Liq) 650 mg Q6H PRN TUBE 12/30/15 15:15 01/18/17 21:34 (Mycostatin Powder) 1 applic Q12HR TOPICAL 01/08/16 21:00 03/09/17 09:45 (Pill Splitter) 1 ea UNSCH PRN OTHER 01/14/16 08:30 (Acetic Acid 0.25% Irr Btl) 10 ml Q8HR IRRIGATION 02/05/16 16:00 03/09/17 05:55 (Paxil Liq) 20 mg DAILY@1900 PEG 03/12/16 19:00 Future hold 03/08/17 18:41 (Zofran Inj) 4 mg Q6HR PRN IV PUSH 04/14/16 19:45 08/10/16 10:16 (Xopenex Neb) 0.63 mg Q4HR NEB PRN NEB 05/05/16 12:00 03/06/17 10:45 (Aspirin) 325 mg DAILY TUBE 05/27/16 11:40 Future Hold 02/25/17 08:28 (Heparin Inj) 5,000 units Q8HR SQ 06/11/16 14:00 Future hold 03/09/17 05:35 (Baciguent Oint) 1 applic BID TOP 07/20/16 10:00 03/09/17 09:45 ([place]) 1 spray BID NASAL 08/01/16 21:00 03/09/17 09:45 (Tears Naturale Opth Soln) 1 drop BID EACH EYE 09/05/16 21:00 03/09/17 09:45 (Morphine Inj) 1 mg Q24H PRN IV PUSH 09/17/16 14:30 10/22/16 02:00 (Dulcolax Supp) 10 mg DAILY PRN RECTAL 09/26/16 15:30 12/08/16 09:17 (Tylenol - Codeine 120-12 Liq) 5 ml Q4H PRN G-TUBE 12/27/16 15:30 03/06/17 09:38 (Imodium Liq) 2 mg Q6H PRN PEG 12/27/16 15:30 01/24/17 20:05 (Milk Of Magnesia Liq) 30 ml DAILY PRN PEG 12/27/16 15:30 02/11/17 08:46 (Milk Of Magnesia Liq) 30 ml DAILY PEG 12/28/16 09:00 Future Hold 01/19/17 08:44 (Senna Liq) 8.8 mg DAILY@1600 PEG 12/27/16 16:00 03/08/17 15:50 (Lactulose Liq) 30 ml DAILY PRN PEG 12/27/16 15:30 (Cardizem) 30 mg QID PEG 01/09/17 18:00 03/09/17 09:45 (D50w (Vial) Inj) 50 ml UNSCH PRN IV 01/09/17 16:00 (Glucagon Inj) 1 mg UNSCH PRN OTHER 01/09/17 16:00 (Prevacid Odt) 30 mg BID NG 01/26/17 21:00 03/09/17 09:45 (Ashish Powder) 1 pack BID G-TUBE 02/10/17 21:00 03/09/17 09:45 (Ferrous Sulfate Liq) 300 mg DAILY PO 02/14/17 09:00 03/09/17 09:45 (Vitamin C) 1,000 mg DAILY PO 02/14/17 09:00 03/09/17 09:45 (Bacitracin Oint Packet) 0.9 gm DAILY TOPICAL 02/25/17 09:00 03/09/17 09:45 (Levsin) 0.25 mg Q4H G-TUBE 03/07/17 10:00 03/09/17 09:45 (Duoneb Neb) 1 ampule Q4HR WHILE AWAKE NEB NEB 03/07/17 12:00 03/08/17 22:02 Date of Insertion: Feb 10, 2017 A/P Problem List: (1) CVA (cerebral vascular accident) ICD Code: I63.9 - Cerebral infarction, unspecified Status: Acute (2) A-fib ICD Code: I48.91 - Unspecified atrial fibrillation Status: Chronic (3) DM (diabetes mellitus) ICD Code: E11.9 - Type 2 diabetes mellitus without complications Status: Chronic Assessment and Plan 60 year-old male with past medical history of paroxysmal A. fib, hypertension, stage III non-Hodgkin's lymphoma status post chemotherapy who came into the hospital with altered mental status. Gross Hematuria - Lopez change following cystoscopy procedure 03/03/17. - Hematuria resolved x 48hrs. Heparin and ASA resumed. No resumption of hematuria noted. - Urology Consult appreciated. Recommends flushing Lopez catheter. - CT of the abdomen showed bladder mass right posteriorly with apparent extravesical extension and clot formation. - Urology spoke with family member, daughter, states that he's not recommending biopsy of the bladder mass. However daughter insisted on biopsy. Patient s/p cystoscopy and palliative transurethral resection of bladder tumor greater than 5 cm originating from right bladder wall performed by Dr. Sewell . 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 Dr. Pruitt discussed at length with sister and daughter at the bedside who have requested consultations from Urology and Oncology to consider all the options available. Oncology consult placed. Requested nursing staff reach out to Dr. Springer to discuss results/options. Will also discuss with the family palliative care consultation. - H&H dropped to 7.4/24.3. Improved status post transfusion. Hemoglobin appears stable. - Continue to flush lopez catheter PRN. Abdominal wound/ lesion - Below the GJ incision site. Appears unchanged from yesterday. Some purulence noted around PEG site, appears same. - Wound Care consulted and recommends leaving open to air, imaging soft tissue ultrasound. - Continue Bacitracin - Ultrasound soft tissue surrounding area for possible fluid collection that would need I & D. - Soft tissue ultrasound showed 1. Just inferior to that the tube in the left abdomen, there is a superficial 3.8 x 2.9 0.9 cm complex fluid collection in the subcutaneous tissue. 2. Findings are nonspecific. This could represent a small seroma or abscess. Would consider CT scan of the abdomen with contrast for further evaluation and determine if there is an intraperitoneal extension. - CT of the abdomen showed 1. Abdominal aortic aneurysm. 2. Bladder mass is noted on the right posteriorly with apparent extravesical extension and clot formation. 3. Left renal cyst. 4. Left lower lobe atelectasis. 5. Large sacral decubitus ulcer with bony disruption and sclerosis of the sacrum mid to left lateral portion in the region of S3 and inferiorly which would suggest chronic osteomyelitis in the appropriate clinical setting. - No intraperitoneal extension noted for the wound, will possibly need bedside I&D. 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 Intermittently tracks with eyes. - Continue Keppra 500mg BID for seizure prophylaxis. Keppra level 17.8. - PT/OT signed off as patient is unable to participate. - On Paxil 20 by mouth daily for depression. - On acetaminophen with codeine for pain scale of 2-10. - Morphine 1 mg every 24 hours when necessary for dressing change Chronic respiratory failure secondary to CVA - Status post tracheostomy. Continue pulmonary toilet and bronchodilators as needed. Continue trach care, suctioning. Increased secretions improved with scheduled Levsin. Decrease dosing of scheduled Levsin to q8h and monitor response. Pulmonary toilet. Monitor. - Trach changed to size #6 XLT on 01/09 - Duo nebs every 4 hours while awake - Pulmonary currently following, appreciate assistance. - 01/09 CTA chest: No PE, bilateral lower lobe infiltrates. 4 mm right upper lobe/5 mm right middle lobe nodule. - CXR 02/22/17 reveals minimal atelectasis - CXR 03/07/17 showing mild streaky opacity at the lung bases with no focal consolidation or effusion. Right hallux ingrown toenail, paronychia- medial aspect 02/23/17 new area of paronychia right hallux ingrown toe nail lateral aspect - Breaster has seen patient. I & D with partial nail avulsion performed at bedside 02/06/17. - Seen by podiatry. Plan is to aggressively cut the nail back. - Resolved Atrial fibrillation, controlled Hypertension Dyslipidemia - Continue rate control with Cardizem and metoprolol. - Echocardiogram in November 2015 shows preserved ejection fraction. Coumadin discontinued secondary to bleeding. - Continue aspirin History of non-Hodgkin's lymphoma - Status post brain biopsy on December 13 by neurosurgery. Pathology consistent with acute infarct without evidence of lymphoma. Oncology has signed off. Diabetes mellitus Type 2 - Hemoglobin A1c is 5.5. - Fingersticks have been stable and were DC'd 02/01/17 Decubitus ulcer stage IV - Continue wound care, twice-daily dressing changes. Wound care recommendations last updated 12/12/16. Continue pressure relief measures including turning and positioning. Patient's family has declined a diverting colostomy. Previous Wound culture growing Klebsiella and Enterococcus Faecalis. Previously on Augmentin. Status post wide excision of sacral skin and biopsy of the cavity lining with debridement on 07/22/16. - Wound care last saw patient on 01/17/17, no new recommendations continue packing with Betadine moistened rolled Janis and covered with ABD pad and paper tape to secure. - Continue to monitor. Continue pressure-relief. - Morphine 1 mg every 24 hours when necessary for dressing change Protein calorie malnutrition Gastroesophageal reflux disease Gastric ulcer, reflux esophagitis Diarrhea, negative for C. difficile. Improved - EGD on 07/30/16 showed gastric ulcers. - On Prevacid 30 mg Q12, on tube feeds(Jevity 1.5 at 55 ml/hr) - Continue bowel regimen with hold parameters, Lactinex and Imodium. - G/J tube clogged, IR consulted to evaluate. Replaced on 02/25/17 - Reiterated proper G/J tube care and flush procedures. Discuss and explained with family. UTI pseudomonas aeruginosa Recurrent - Previous Repeat Ucx 08/28/16 negative. - 02/22/17 UA consistent with UTI - cultures pseudomonas, currently on Rocephin will change to cefepime since last culture was also Pseudomonas and was sensitive to cefepime. - Sensitivities came back, was switched over to Zosyn as cultures are not sensitive to cefepime. Completed. Klebsiella/Pseudomonas/staph aureus HCAP PSAE UTI - S/p Cefepime. Monitor for signs of infections. - strep pneumonia and Legionella urinary Ag is negative - C-diff PCR negative on 01/13 - 01/09 BC : Staph Epi, Urine cx: Pseudomonas, Sputum cx: Pseudomonas, kleb, Staph. - Patient was pancultured on 01/19 (Blood, sputum, urine) NGTD in urine and blood. Sputum + for pseudomonas. DVT prophylaxis: SCDs. Heparin 5,000 units sq Q8hr Discussed with nursing staff, mother, sister and Dr. Pruitt Problem Qualifiers (1) CVA (cerebral vascular accident): (2) DM (diabetes mellitus): Jaz Peraza Mar 09, 2017 14:31
[2017-03-09] MEDS: SENNOSIDES SYRUP 8.8 MG/5 ML CUP PEG SCH (16:00)
[2017-03-09] MEDS: PARoxetine HCL SUSP 20 MG/10 ML UDC PEG SCH (19:34)
[2017-03-10] VITALS (7 sets, daily range): BP systolic 109–125; BP diastolic 63–76; PULSE 95–109; RESP 16–20; TEMP 96.7–98.1; O2SAT 99–100
[2017-03-10] MEDS: HYOSCYAMINE 0.125 MG TAB G-TUBE SCH ×3 (05:08→21:38)
[2017-03-10] MEDS: HEPARIN SODIUM - SQ 10,000 UNITS/ML VIAL SQ SCH ×3 (05:09→21:37)
[2017-03-10] MEDS: ACETIC ACID 0.25% SOLN 1000 ML IRR BTL IRRIGATION SCH ×3 (05:09→22:00)
[2017-03-10] MEDS: LANSOPRAZOLE SOLUTAB 30 MG TAB NG SCH ×2 (07:49→21:38)
[2017-03-10] MEDS: ASCORBIC ACID 500 MG TAB PO SCH (07:49)
[2017-03-10] MEDS: DILTIAZEM HCL 30 MG TAB PEG SCH ×4 (07:49→21:38)
[2017-03-10] MEDS: FERROUS SULFATE 300 MG /5ML UDC PO SCH (07:49)
[2017-03-10] MEDS: levETIRAcetam 500 MG/5 ML UDC TUBE SCH ×2 (07:49→21:35)
[2017-03-10] MEDS: SODIUM CHLORIDE 0.65% NASAL SPRAY 45 ML BTL NASAL SCH ×2 (08:01→21:00)
[2017-03-10] MEDS: ARTIFICIAL TEARS OPTH SOLN 15 ML BTL EACH EYE SCH ×2 (08:02→21:00)
[2017-03-10] MEDS: BACITRACIN TOP OINT 15 GM TUBE TOP SCH ×2 (08:08→21:00)
--- NOTE | 2017-03-10 08:44 | MB ---
cc: [facility]URE[facility]ILES DATE OF CONSULTATION 03/09/2017 DATE OF 1955 REASON FOR CONSULTATION Patient with a history of non-Hodgkin lymphoma. History of CVA. Chronic respiratory failure and has trache collar in place. He was found to have a bladder mass. HISTORY OF PRESENT ILLNESS This is a 61-year-old male who has a history of non-Hodgkin's lymphoma which was diagnosed in January of 2016 after he presented with abdominal pain and constitutional B symptoms. CT scans of the abdomen and pelvis showed retroperitoneal, mesenteric and iliac lymphadenopathy. He also had left axillary lymphadenopathy. Biopsy confirmed non-Hodgkin's lymphoma. There was no bone marrow involvement. This was a Stage III non-Hodgkin's lymphoma. He received six cycles of Rituxan and CHOP chemotherapy. His last treatment was May 2015. Restaging CT scan subsequently did not show any residual or recurrent disease. The patient presented to [facility] in December 2015 with mental status changes and he became obtunded and lethargic. In the emergency room he was intubated to protect his airway. Imaging revealed an acute stroke. The patient has remained on the ventilator since then. He has chronic respiratory failure. He also appears to be nonverbal. He opens his eyes and appears to have some tracking. The patient recently developed gross hematuria. He was found to have a bladder mass. This was based on a CT of the abdomen. This is a 5.4 x 3.5-cm mass extending posteriorly and superiorly off the right posterior wall of the urinary bladder with surrounding soft tissue stranding the perivesical fat. The mass appears to be extending to the posterior vesical wall on the right. The patient is currently being seen by Urology. He has undergone cystoscopy and biopsy of the mass. The biopsies confirmed a small cell carcinoma. Oncology has been consulted to make further recommendations in this patient who is chronically ill and has been in respiratory day failure for one year and two months. He has multiple medical problems including a large decubitus ulcer which is Stage IV. He is malnutritioned. He has a PEG tube in place. He has had recurrent infections occluding UTI and Pseudomonas aeruginosa infection as well as Klebsiella, Pseudomonas and Staph aureus, H. . He is nonverbal and intermittently tracks with eyes. REVIEW OF SYSTEMS Unable to obtain due to the patient's mental status. PAST MEDICAL HISTORY 1. Small cell carcinoma. 2. History of non-Hodgkin's lymphoma. 3. Chronic respiratory failure. 4. Malnutrition with PEG tube placement. 5. History of multiple infections. 6. Stroke. PAST SURGICAL HISTORY 1. Transurethral resection of the small cell carcinoma. 2. History of lymph node biopsy. 3. Tracheostomy. 4. Brain biopsy. MEDICATIONS Reviewed in the EMR. ALLERGIES No known drug allergies. FAMILY HISTORY Noncontributory. SOCIAL HISTORY Unable to be obtained. PHYSICAL EXAMINATION VITAL SIGNS: Blood pressure is 111/73, pulse is in the 100s, temperature is 98, O2 sats are 100% with a T-piece with an FIO2 of 28 at 5 liters per minute. GENERAL: In general, a chronically ill-appearing, debilitated male who was nonverbal and does not answer any questions. Some eye threatening noted. HEENT: Tracheostomy and T-piece in place. NECK: Supple. No JVD, no bruits. CHEST: Clear bilaterally. CARDIAC: S1, S2. Tachycardiac. ABDOMEN: Soft, nontender, nondistended. Bowel sounds are present. EXTREMITIES: Without any edema, erythema or cyanosis. SKIN: Without any petechiae or bruises. NEURO: The patient opens his eyes. He does not answer any questions. LYMPH NODE EXAM: No cervical, axillary, supraclavicular, epitrochlear or inguinal lymphadenopathy noted on exam. LABORATORY DATA WBC is 5.8, hemoglobin is 8.2, platelet count is 240. Serum chemistries show sodium of 135, potassium 4.1, chloride 102, CO2 27.3, anion gap is 5, BUN 25, creatinine is 0.89, GFR is 87, calcium is 8.3, alk phos is 61, AST is 18, ALT is 11, albumin is 2.4. IMAGING STUDIES Reviewed in the EMR. PATHOLOGY Report was reviewed. ASSESSMENT AND PLAN 1. This is a 61-year-old male with a history of non-Hodgkin's lymphoma treated with R-CHOP chemotherapy and achieved remission. He presented with altered mental status and became obtunded. The patient was found to have a stroke. He is in chronic respiratory failure with a tracheostomy. He has a PEG tube in place. He has Stage IV decubitus ulcers. He has had multiple infections including UTIs and pneumonias. He developed gross hematuria and CT scan showed a large bladder mass status post transurethral resection of the mass. I have reviewed his pathology report. This is a small cell carcinoma. The tumor cells were immunoreactive for neuroendocrine markers. This could be rampart to bladder vital signs from another primary site such as lung. This patient is chronically ill with respiratory failure and multiple medical issues. It will be very difficult to treat this patient with any type of chemotherapy. The patient's family is asking for aggressive treatment. We should ask Palliative Care to discuss goals of treatment with the family. I will ask Dr. Whyte, who is the patient's oncologist and has treated his lymphoma in the past to see this patient on Friday. Further treatment recommendations will be made after assessment of the CT of the chest as well as discussions with Dr. Whyte 2. History of cerebral infarct. 3. Chronic respiratory failure. 4. Chronic anemia. 5. Stage IV decubitus ulcers. 6. Hematuria secondary to bladder malignancy. 7. History of Stage III non-Hodgkin's lymphoma status post R-CHOP chemotherapy. 8. Chronic protein calorie malnutrition. He has a J-G tube in place. Thank you for allowing me to participate in the care of this patient. The oncology team will follow this patient along. MD ENA Queen/CRUZ /11:20 PM /8:40 AM
[2017-03-10] MEDS: RESP: ALBUTEROL 2.5 MG/IPRATROPIUM 0.5 MG NEB (SCH) NEB ×4 (09:30→19:57)
[2017-03-10] MEDS: BACITRACIN OINT 0.9 GM PKT TOPICAL SCH (09:36)
[2017-03-10] MEDS: NYSTATIN 100,000 U/GM PWD 15 GM BTL TOPICAL SCH ×2 (09:36→21:00)
[2017-03-10] MEDS: JUVEN POWDER 1 PACK G-TUBE SCH ×2 (09:36→21:00)
--- NOTE | 2017-03-10 10:41 | HHI.PR ---
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 Patient seen and examined today. No acute issues overnight per nursing staff. Secretions appear improved. Discussed with sister palliative care consult and she is agreeable. Objective Vitals Vital Signs Date Time Temp Pulse Resp B/P (MAP) Pulse Ox O2 Delivery O2 Flow Rate FiO2 03/10/17 09:35 100 T-piece 5.00 28 03/10/17 08:00 96.7 99 20 125/76 (92) 100 03/10/17 00:00 98.1 109 18 118/65 (82) 99 03/09/17 21:42 99 T-piece 5.00 28 03/09/17 20:45 Nasal Cannula 03/09/17 20:00 98.0 112 18 111/73 (86) 100 03/09/17 16:00 96.2 112 18 108/63 (78) 100 03/09/17 12:00 98.2 113 20 108/73 (85) 97 I/O 03/09/17 03/09/17 03/09/17 03/10/17 03/10/17 03/10/17 07:00 15:00 23:00 07:00 15:00 23:00 Intake Total 453 ml 1112 ml 490 ml Output Total 1700 ml 1225 ml 350 ml Balance -1247 ml -113 ml 140 ml Intake Oral 0 ml 0 ml 0 ml Tube Feeding 453 ml 756 ml 345 ml Tube Irrigant 145 ml Other 356 ml Output Urine Total 1700 ml 1225 ml 350 ml # Bowel Movements 1 4 0 Result Diagram: 03/07/17 0629 03/07/17 0629 Imaging Last Impressions Chest X-Ray 03/07/17 0000 Signed Impressions: Service Date/Time: Tuesday, March 07, 2017 10:24 - CONCLUSION: Mild streaky opacity at the lung bases most are cystic of atelectasis. Gerald Mukherjee MD Abdomen/Pelvis CT 02/27/17 0000 Signed Impressions: Service Date/Time: February 02:24 - CONCLUSION: 1. Abdominal aortic aneurysm. 2. Bladder mass is noted on the right posteriorly with apparent extravesical extension and clot formation. 3. Left renal cyst. 4. Left lower lobe atelectasis. 5. Large sacral decubitus ulcer with bony destruction and sclerosis of the sacrum mid to left lateral portion in the region of S3 and inferiorly which would suggest chronic osteomyelitis in the appropriate clinical setting. Rajan Granados MD Soft Tissue Ultrasound 02/26/17 0000 Signed Impressions: Service Date/Time: Sunday, February 26, 2017 12:52 - CONCLUSION: 1. Just inferior to the G-tube in the left abdomen, there is a superficial 3.8 x 2.9 0.9 cm complex fluid collection in the subcutaneous tissues. 2. Findings are nonspecific. This could represent a small seroma or abscess. Would consider CT scan of the abdomen without contrast for further evaluation to determine if there is intraperitoneal extension. Bobby Gray MD Gastrostomy Tube Placement 02/25/17 0000 Signed Impressions: Service Date/Time: Saturday, February 25, 2017 14:19 - CONCLUSION: Uncomplicated exchange of gastroenteric feeding tube for gastrostomy tube as above. Positioning confirmed. The tube can be used immediately. Glen Zamora MD Tube Change 02/14/17 0000 Signed Impressions: Service Date/Time: Tuesday, February 14, 2017 00:00 - CONCLUSION: Uncomplicated gastrojejunostomy tube exchange as above. Scott Griffin MD Head CT 01/09/17 0000 Signed Impressions: Service Date/Time: December 17:43 - CONCLUSION: 1. No acute hemorrhage or mass effect. 2. 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 3. Atrophy. Gerald Mukherjee MD CT Angiography 01/09/17 0000 Signed Impressions: Service Date/Time: December 17:49 - CONCLUSION: 1. No evidence of pulmonary emboli. 2. Patchy consolidation in both posterior lower lobes right greater than left. This could represent pneumonia. 3. 2 small noncalcified pulmonary nodules which are nonspecific finding. Short-term CT followup is recommended beginning in 6 months with a noncontrast outpatient CT. Gerald Mukherjee MD Tube Check 12/04/16 0000 Signed Impressions: Service Date/Time: Sunday, December 04, 2016 17:58 - CONCLUSION: Uncomplicated tube injection as above. the tube is in good position and functions normally. Moises Ramírez MD Abdomen X-Ray 08/31/16 0000 Signed Impressions: Service Date/Time: Wednesday, August 31, 2016 16:36 - CONCLUSION: 1. No acute findings. Mild constipation. Durga Dotson MD Head Magnetic Resonance Angiography 03/05/16 0000 Signed Impressions: Service Date/Time: Saturday, March 05, 2016 09:26 - CONCLUSION: Persistent high-grade subtotal occlusive stenotic lesions in the distal right vertebral artery and proximal basilar artery with significant improvement in flow and recanalization following initial presentation of thrombosis. Stable interstitial circulation without significant stenosis. Ernesto Kulkarni MD Brain MRI 03/05/16 0000 Signed Impressions: Service Date/Time: Saturday, March 05, 2016 09:26 - CONCLUSION: Evolving brainstem and bilateral occipital lobe infarcts with evidence of subacute hemorrhagic products. There is decreasing restricted diffusion and increasing loss of volume characteristic of a subacute to chronic infarct. No evidence of acute infarct, acute hemorrhage mass or edema. Ernesto Kulkarni MD Neck Magnetic Resonance Angiography 12/22/15 1445 Signed Impressions: Service Date/Time: Tuesday, December 22, 2015 09:22 - CONCLUSION: Variant origin of the left vertebral artery from the aortic arch. No evidence of carotid stenosis. Glen Zamora MD Head/Brain Mag Res Venography 12/22/15 0000 Signed Impressions: Service Date/Time: Tuesday, December 22, 2015 09:22 - CONCLUSION: Normal MRV. Jonel Jones Jr., MD Objective Remarks GENERAL: WDWN male, in no apparent distress. Nonverbal. Awake. Lying in hospital bed. SKIN: Warm and dry. Right 1st toe s/p ingrown toe nail removal, healing well. HEENT: Normocephalic. Pupils nonicteric. Nose without bleeding. NECK: Trachea midline. T-tube in place, site clean, dry, intact. Less secretions noted in trach piece. CARDIOVASCULAR: Regular rate and rhythm without murmurs, gallops, or rubs. RESPIRATORY: Coarse BS, improved. GASTROINTESTINAL: Abdomen soft, non-tender, nondistended. BS active x [address] tube in place, below incision site area appears worse with increased erythema and larger area of fluctuance, no drainage noted but appears to be coming to a head. No open wound. Purulence around GJ tube site increased. : Lopez catheter in place with clear yellow urine in the bag. MUSCULOSKELETAL: Extremities without clubbing, cyanosis, Bilateral feet +1 edema. Upper extremities slightly edematous. NEUROLOGICAL: Awake. Patient not following commands but appears to track intermittently. Nonverbal. Procedures 07/22/2016 Wide excision of sacral skin wound, biopsy of the cavity lining and debridement. PEG removal and Gj tube placement 07/29/16 VAC changes- M-W-F 10/23/16, 11/18, 12/31- GJ tube replacement 01/02/16 PEG placement 01/02/16 tracheostomy 02/25/17 PEG replacement 03/03/17 Cystoscopy and palliative transurethral resection of bladder tumor greater than 5cm originating from the right bladder wall Medications and IVs Current Medications Medications (Trade) Dose Ordered Sig/Junior Route Start Time Stop Time Status Last Admin (NS Flush) 2 ml UNSCH PRN IVF 12/21/15 06:00 09/28/16 21:18 (Keppra Liq) 500 mg Q12HR TUBE 12/27/15 21:00 03/10/17 07:49 (Tylenol 650 Mg/ 20 ml Liq) 650 mg Q6H PRN TUBE 12/30/15 15:15 01/18/17 21:34 (Mycostatin Powder) 1 applic Q12HR TOPICAL 01/08/16 21:00 03/10/17 09:36 (Pill Splitter) 1 ea UNSCH PRN OTHER 01/14/16 08:30 (Acetic Acid 0.25% Irr Btl) 10 ml Q8HR IRRIGATION 02/05/16 16:00 03/10/17 05:09 (Paxil Liq) 20 mg DAILY@1900 PEG 03/12/16 19:00 Future hold 03/09/17 19:34 (Zofran Inj) 4 mg Q6HR PRN IV PUSH 04/14/16 19:45 08/10/16 10:16 (Xopenex Neb) 0.63 mg Q4HR NEB PRN NEB 05/05/16 12:00 03/06/17 10:45 (Aspirin) 325 mg DAILY TUBE 05/27/16 11:40 Future Hold 02/25/17 08:28 (Heparin Inj) 5,000 units Q8HR SQ 06/11/16 14:00 Future hold 03/10/17 05:09 (Baciguent Oint) 1 applic BID TOP 07/20/16 10:00 03/10/17 08:08 ([place]) 1 spray BID NASAL 08/01/16 21:00 03/10/17 08:01 (Tears Naturale Opth Soln) 1 drop BID EACH EYE 09/05/16 21:00 03/10/17 08:02 (Morphine Inj) 1 mg Q24H PRN IV PUSH 09/17/16 14:30 10/22/16 02:00 (Dulcolax Supp) 10 mg DAILY PRN RECTAL 09/26/16 15:30 12/08/16 09:17 (Tylenol - Codeine 120-12 Liq) 5 ml Q4H PRN G-TUBE 12/27/16 15:30 03/06/17 09:38 (Imodium Liq) 2 mg Q6H PRN PEG 12/27/16 15:30 01/24/17 20:05 (Milk Of Magnesia Liq) 30 ml DAILY PRN PEG 12/27/16 15:30 02/11/17 08:46 (Milk Of Magnesia Liq) 30 ml DAILY PEG 12/28/16 09:00 Future Hold 01/19/17 08:44 (Senna Liq) 8.8 mg DAILY@1600 PEG 12/27/16 16:00 03/08/17 15:50 (Lactulose Liq) 30 ml DAILY PRN PEG 12/27/16 15:30 (Cardizem) 30 mg QID PEG 01/09/17 18:00 03/10/17 07:49 (D50w (Vial) Inj) 50 ml UNSCH PRN IV 01/09/17 16:00 (Glucagon Inj) 1 mg UNSCH PRN OTHER 01/09/17 16:00 (Prevacid Odt) 30 mg BID NG 01/26/17 21:00 03/10/17 07:49 (Ashish Powder) 1 pack BID G-TUBE 02/10/17 21:00 03/10/17 09:36 (Ferrous Sulfate Liq) 300 mg DAILY PO 02/14/17 09:00 03/10/17 07:49 (Vitamin C) 1,000 mg DAILY PO 02/14/17 09:00 03/10/17 07:49 (Bacitracin Oint Packet) 0.9 gm DAILY TOPICAL 02/25/17 09:00 03/10/17 09:36 (Duoneb Neb) 1 ampule Q4HR WHILE AWAKE NEB NEB 03/07/17 12:00 03/10/17 09:30 (Levsin) 0.25 mg Q8H G-TUBE 03/09/17 22:00 04/08/17 21:59 03/10/17 05:08 Pharmacy Profile Note 0 ml @ 0 mls/hr UNSCH OTHER 03/10/17 09:00 Vancomycin HCl 1250 mg/Sodium Chloride 262.5 ml @ 250 mls/hr Q12H IV 03/10/17 11:00 Miscellaneous Information SPECIFIC LAB TO BE ELISA... ONCE ONCE .XX 03/11/17 22:45 03/11/17 22:46 Date of Insertion: Feb 10, 2017 A/P Problem List: (1) CVA (cerebral vascular accident) ICD Code: I63.9 - Cerebral infarction, unspecified Status: Acute (2) A-fib ICD Code: I48.91 - Unspecified atrial fibrillation Status: Chronic (3) DM (diabetes mellitus) ICD Code: E11.9 - Type 2 diabetes mellitus without complications Status: Chronic Assessment and Plan 60 year-old male with past medical history of paroxysmal A. fib, hypertension, stage III non-Hodgkin's lymphoma status post chemotherapy who came into the hospital with altered mental status. Gross Hematuria - Lopez change following cystoscopy procedure 03/03/17. - Hematuria resolved x 48hrs. Heparin and ASA resumed. No resumption of hematuria noted. - Urology Consult appreciated. Recommends flushing Lopez catheter. - CT of the abdomen showed bladder mass right posteriorly with apparent extravesical extension and clot formation. - Urology spoke with family member, daughter, states that he's not recommending biopsy of the bladder mass. However daughter insisted on biopsy. Patient s/p cystoscopy and palliative transurethral resection of bladder tumor greater than 5 cm originating from right bladder wall performed by Dr. Sewell . 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 Dr. Pruitt discussed at length with sister and daughter at the bedside who have requested consultations from Urology and Oncology to consider all the options available. Oncology consult placed. Requested nursing staff reach out to Dr. Springer to discuss results/options. - Oncology following - appreciate their assistance. Family requesting aggressive therapy. Difficult patient to treat with chemotherapy. Dr. Whyte who is familiar with the patient and treated his lymphoma in the past to see on Friday. - Discussed with sister palliative care consultation and she is agreeable. Order placed for palliative care consult. - H&H dropped to 7.4/24.3. Improved status post transfusion. Hemoglobin appears stable. - Continue to flush lopez catheter PRN. Abdominal wound/ lesion - Below the GJ incision site appears to be worsening as well as increased purulence around PEG site. Started on Vancomycin. Pharmacy to dose. Continue to monitor. May need bedside I&D. - Wound Care consulted and recommends leaving open to air, imaging soft tissue ultrasound. - Continue Bacitracin - Ultrasound soft tissue surrounding area for possible fluid collection that would need I & D. - Soft tissue ultrasound showed 1. Just inferior to that the tube in the left abdomen, there is a superficial 3.8 x 2.9 0.9 cm complex fluid collection in the subcutaneous tissue. 2. Findings are nonspecific. This could represent a small seroma or abscess. Would consider CT scan of the abdomen with contrast for further evaluation and determine if there is an intraperitoneal extension. - CT of the abdomen showed 1. Abdominal aortic aneurysm. 2. Bladder mass is noted on the right posteriorly with apparent extravesical extension and clot formation. 3. Left renal cyst. 4. Left lower lobe atelectasis. 5. Large sacral decubitus ulcer with bony disruption and sclerosis of the sacrum mid to left lateral portion in the region of S3 and inferiorly which would suggest chronic osteomyelitis in the appropriate clinical setting. - No intraperitoneal extension noted for the wound. 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 Intermittently tracks with eyes. - Continue Keppra 500mg BID for seizure prophylaxis. Keppra level 17.8. - PT/OT signed off as patient is unable to participate. - On Paxil 20 by mouth daily for depression. - On acetaminophen with codeine for pain scale of 2-10. - Morphine 1 mg every 24 hours when necessary for dressing change Chronic respiratory failure secondary to CVA - Status post tracheostomy. Continue pulmonary toilet and bronchodilators as needed. Continue trach care, suctioning. Increased secretions improved with scheduled Levsin. Decreased dosing of scheduled Levsin to q8h. Pulmonary toilet. Monitor. - Trach changed to size #6 XLT on 01/09 - Duo nebs every 4 hours while awake - Pulmonary currently following, appreciate assistance. - 01/09 CTA chest: No PE, bilateral lower lobe infiltrates. 4 mm right upper lobe/5 mm right middle lobe nodule. - CXR 02/22/17 reveals minimal atelectasis - CXR 03/07/17 showing mild streaky opacity at the lung bases with no focal consolidation or effusion. 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 I & D with partial nail avulsion performed at bedside 02/06/17. - Seen by podiatry. Plan is to aggressively cut the nail back. - Resolved Atrial fibrillation, controlled but more tachycardic Hypertension Dyslipidemia - Continue rate control with Cardizem and metoprolol. Increased tachycardia may be due to abdominal infection. Monitor. - Echocardiogram in November 2015 shows preserved ejection fraction. Coumadin discontinued secondary to bleeding. - Continue aspirin History of non-Hodgkin's lymphoma - Status post brain biopsy on December 13 by neurosurgery. Pathology consistent with acute infarct without evidence of lymphoma. Oncology has signed off. Diabetes mellitus Type 2 - Hemoglobin A1c is 5.5. - Fingersticks have been stable and were DC'd 02/01/17 Decubitus ulcer stage IV - Continue wound care, twice-daily dressing changes. Wound care recommendations last updated 12/12/16. Continue pressure relief measures including turning and positioning. Patient's family has declined a diverting colostomy. Previous Wound culture growing Klebsiella and Enterococcus Faecalis. Previously on Augmentin. Status post wide excision of sacral skin and biopsy of the cavity lining with debridement on 07/22/16. - Wound care last saw patient on 01/17/17, no new recommendations continue packing with Betadine moistened rolled Janis and covered with ABD pad and paper tape to secure. - Continue to monitor. Continue pressure-relief. - Morphine 1 mg every 24 hours when necessary for dressing change Protein calorie malnutrition Gastroesophageal reflux disease Gastric ulcer, reflux esophagitis Diarrhea, negative for C. difficile. Improved - EGD on 07/30/16 showed gastric ulcers. - On Prevacid 30 mg Q12, on tube feeds(Jevity 1.5 at 55 ml/hr) - Continue bowel regimen with hold parameters, Lactinex and Imodium. - G/J tube clogged, IR consulted to evaluate. Replaced on 02/25/17 - Reiterated proper G/J tube care and flush procedures. Discuss and explained with family. UTI pseudomonas aeruginosa Recurrent - Previous Repeat Ucx 08/28/16 negative. - 02/22/17 UA consistent with UTI - cultures pseudomonas, currently on Rocephin will change to cefepime since last culture was also Pseudomonas and was sensitive to cefepime. - Sensitivities came back, was switched over to Zosyn as cultures are not sensitive to cefepime. Completed. Klebsiella/Pseudomonas/staph aureus HCAP PSAE UTI - S/p Cefepime. Monitor for signs of infections. - strep pneumonia and Legionella urinary Ag is negative - C-diff PCR negative on 01/13 - 01/09 BC : Staph Epi, Urine cx: Pseudomonas, Sputum cx: Pseudomonas, kleb, Staph. - Patient was pancultured on 01/19 (Blood, sputum, urine) NGTD in urine and blood. Sputum + for pseudomonas. Hyponatremia - mild - IVF bolus - repeat labs ordered to monitor. DVT prophylaxis: SCDs. Heparin 5,000 units sq Q8hr Discussed with nursing staff, mother, sister and Dr. Pruitt Problem Qualifiers (1) CVA (cerebral vascular accident): (2) DM (diabetes mellitus): Jaz Peraza Mar 10, 2017 10:41
--- NOTE | 2017-03-10 11:42 | HHI.HCPN ---
Reason for visit a. To assist with evaluation and management of symptoms including: dyspnea, encephalopathy, depression b. To assist medical decision maker(s) with: better understanding of current medical conditions; weighing benefits/burdens of medical treatment options; making medical treatment decisions. Subjective/Interval History Palliative care RECONSULTED on this pt, pt well known to Palliative Care, seen today in follow up visit. Pt has remained stable in med surg unit. Briefly in ICU last month for dyspnea/ resp distress, on mech vent for several days. Has remained stable on 29% fio2 to trach since then. Palliative care reconsulted at this time due to no findings of 5 x 3.5 cm bladder mass. Status post cystoscopy, biopsy. Pathology positive small cell carcinoma. Oncology has evaluated, reports would be difficult to provide chemotherapy to this patient due to multiple chronic medical issues, and chronically debilitated state. Oncology Recommends further follow-up/consultation with Dr. Whyte patient known oncologist from prior lymphoma (11/2015), as well as CT chest, and palliative care consult to clarify goals of treatment. Patient has remained stable last CBC 03/07 unremarkable , H&H slowly down trending 8.8/26.1. WBC 5.8. Last chemistry 03/07 unremarkable. Last CXR 03/07 with streaky opacity bases, cystic atelectasis. Patient tolerating tube feeding. Vital signs stable, afebrile. Continues to have sputum persistently positive Pseudomonas 02/22, as well as urine positive Pseudomonas 02/22. s/p Cystoscopy and palliative transurethral resection of bladder tumor greater than 5cm originating from the right bladder wall on 03/03/17. Continues to have stage IV sacral wound, dressings per wound care Patient seen in room, dual visit with Yokasta MOCTEZUMA. at bedside, daughter Leanne at bedside. To exam patient with eyes open, but does appear to track [id number]. Does not follow commands though when his mother holds up his right hand I do observe some very slight, weak finger movement. Chewing type motion noted with mouth frequently during exam. Following exam spoke with daughter Leanne at length. review general patient hospital course, Family goals up until this point, family endorses that day and patient were looking forward to possible transition to next Level of care at [facility] for [facility]-term placement. they feel patient does have quality of life today today. They feel he engages with them emotionally , Enjoys their visits, and that he though he cannot communicate; he appreciates current quality of life, and would want to continue with ongoing treatments to maintain . . The endorse that he seems to laugh, cry and communicate with them from an emotional perspective. Daughter would like a meeting with oncology to further discuss potential options. She understands that patient is not taking good candidate for chemotherapy but would like to talk about any other potential surgery or other options available for this patient to continue to preserve his current quality of life. She requests radiology report regarding CT findings of bladder mass, I provided her with this today. I will attempt to contact oncologist Dr. Carlin to help facilitate a meeting with family. Note per Dr. Carlin's consult it appears he did speak with a sister , and patient mother at bedside however these persons are not legal decision makers, and there is some language barrier. Of note per [place] Statutes, medical proxy decision making would fall to the majority of adult children, as Mr. Flores is not legally . His ex Leanne and children ALL participate in decision making, with dtr Leanne and ex Leanne serving as primary points of contact. ----Following exam call to oncology Dr. Whyte, patient known to him as well. He will be following patient later today. Review of diagnosis he would recommend obtaining further CT imaging for staging, patient not likely a good candidate for chemotherapy. If not metastatic disease could consider radiation therapy however if metastatic process would probably not be a good candidate for radiation either. He will be following up with the patient later, and will also speak with patient ex-/daughter. History brought forward from initial consult by Rita MOCTEZUMA on 01/10/16: This 59-year-old patient was admitted on 12/21/15 via the ED for facial drooping. ED physician notes that patient and patients are poor historians, EMS reported the could not provide good timelines to them. Patient also reported headache, difficulty ambulating. He had known history of recent findings of mass in the brain. During ED course had deterioration of clinical condition and able to protect his airway, unable to follow commands patient was intubated and CT brain obtained. He was admitted for further evaluation and management to the ICU. Tank Riveter was consulted and following patient. Pathology on recent brain biopsy (12/13) still pending. CLINICAL/HOSPITAL COURSE: * CT brain= no focal or acute intracranial hemorrhage. New area decreased density in left occipital lobe suggestive of recent nonhemorrhagic infarct, decreased density in previously noted right occipital lobe has increased in size * Brain MRI = new area of restricted diffusion within left occipital lobe suggesting acute infarct. Interval enlargement of the area of restricted diffusion within right occipital lobe suggesting probable extension of right occipital and started on. Underlying enhancement of right occipital lobe is slightly worse than the previous exam and nonspecific. Biopsy has been performed and results are pending. Tiny focal area of restricted diffusion within right cerebellar hemisphere consistent with probable acute/subacute lacunar infarct. Signal abnormality in the SWI sequence within the right occipital lobe suggesting some hemorrhage in biopsy bed. No midline shift or extra-axial fluid collections. * CXR= no acute cardiopulmonary disease * -Neurology consulted, ordered MRA to look for vertebrobasilar stenosis, echo done last admission notes normal EF with normal valves and normal left atrial size. EEG also ordered. MR venogram ordered. EEG= abnormal study consistent with her encephalopathy. MRV indicated basilar occlusion; neurology notes discussion with family regarding chemical code only, also notes discussion regarding risks associated with the anticoagulates, was discussed with radiologist/INR recommended not helpful to extract basilar clot as this could result in patient's . It was felt the colin was infarcted. Further neurology notes "he could be locked in", is acting as if colin is infarcted. * Oncology known to patient also consulted for non-Hodgkin's lymphoma: Dr Whyte documents that there was no evidence of residual or recurrent disease on CT scans of chest, abdomen, pelvis done in October and November of this year. Pathology was still pending, had been sent to [facility] for second opinion. No acute oncology interventions recommended at that time, will follow. * 6 - 6/ febrile. CPAP trials. Remains on vent off of sedation. Withdrawing to pain. Repeat brain MRI= evolving brainstem stroke. Neurology notes extensive discussion with family, notes discussion the patient is locked in but fully aware, family would like to see help patient does over the next 3 months. 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 Biopsy brain lesion appears consistent with acute infarct no lymphoma. Family desires ongoing aggressive measures, will proceed with tracheostomy. Sputum culture positive sensitive Klebsiella. * 01/01 tracheostomy, PEG tube placement * 01/04 trach collar trials, alternating with T piece. Low-grade fever 100.5. CXR = mild bibasilar atelectasis. Neuro: Spontaneously opening eyes, looking up / down, directionally to commands. * 01/07 still "locked in " , transferred off ICU to regular floor. * 01/08 pulmonology consulted-not CXR clear no evidence of pulmonary infection. He may have some underlying COPD recommends continued aerosol treatments. Further notes long discussion with family at bedside regarding tracheostomy, long-term use of trach until patient able to protect his airway, no further recommendations. Palliative care consulted to assist with clarification of goals of treatment. Advance Directives Living Will: Never completed Health Care Surrogate: Never completed Objective Vital Signs Date Time Temp Pulse Resp B/P (MAP) Pulse Ox O2 Delivery O2 Flow Rate FiO2 03/10/17 09:35 100 T-piece 5.00 28 03/10/17 08:00 96.7 99 20 125/76 (92) 100 03/10/17 00:00 98.1 109 18 118/65 (82) 99 03/09/17 21:42 99 T-piece 5.00 28 03/09/17 20:45 Nasal Cannula 03/09/17 20:00 98.0 112 18 111/73 (86) 100 03/09/17 16:00 96.2 112 18 108/63 (78) 100 03/09/17 12:00 98.2 113 20 108/73 (85) 97 Intake & Output 03/10/17 03/10/17 07:00 19:00 Intake Total 490 ml Output Total 575 ml Balance -85 ml Intake Oral 0 ml Tube Feeding 345 ml Tube Irrigant 145 ml Output Urine Total 575 ml # Bowel Movements 1 Physical Exam CONSTITUTIONAL/GENERAL: This is a chronically ill, frail appearing patient, in no apparent distress TUBES/LINES/DRAINS: Arevalo catheter, PEG tube, tracheostomy, reported ongoing wound to sacrum though I did not visualize. Skin temperature appropriate. Not diaphoretic. CARDIOVASCULAR: Regular rate and rhythm without murmurs.Peripheral pulses symmetric. Trace peripheral edema to upper and lower extremities. RESPIRATORY/CHEST: Tracheostomy midline, no symptoms of problems around site. Symmetric, unlabored respirations. T piece, 28% FiO2. Lung sounds with some coarse air movement to upper mo, clear lower. Breath sounds equal bilaterally. GASTROINTESTINAL: Abdomen soft, no apparent tenderness, nondistended. No palpable masses. Bowel sounds normoactive. tube feed infusing via PEG. Very slight erythema around PEG tube insertion. MUSCULOSKELETAL: Extremities without clubbing, cyanosis. Trace edema upper extremities, lower extremities. No joint effusion noted. No mottling or clubbing.+ Muscle atrophy to all 4 extremities. NEUROLOGICAL: Eyes open, tracks examiner left and right. Does not follow commands, moves right hand weakly with his mother assisting him. Otherwise no movement, no following commands. PSYCHIATRIC: Difficult to fully assess due to clinical condition. no evident anxiety . Diagnostic Tests Result Diagram: 03/07/17 0629 03/07/17 0629 Imaging Last Impressions Chest X-Ray 03/07/17 0000 Signed Impressions: Service Date/Time: Tuesday, March 07, 2017 10:24 - CONCLUSION: Mild streaky opacity at the lung bases most are cystic of atelectasis. Gerald Mukherjee MD Abdomen/Pelvis CT 02/27/17 0000 Signed Impressions: Service Date/Time: February 02:24 - CONCLUSION: 1. Abdominal aortic aneurysm. 2. Bladder mass is noted on the right posteriorly with apparent extravesical extension and clot formation. 3. Left renal cyst. 4. Left lower lobe atelectasis. 5. Large sacral decubitus ulcer with bony destruction and sclerosis of the sacrum mid to left lateral portion in the region of S3 and inferiorly which would suggest chronic osteomyelitis in the appropriate clinical setting. Rajan Granados MD Soft Tissue Ultrasound 02/26/17 0000 Signed Impressions: Service Date/Time: Sunday, February 26, 2017 12:52 - CONCLUSION: 1. Just inferior to the G-tube in the left abdomen, there is a superficial 3.8 x 2.9 0.9 cm complex fluid collection in the subcutaneous tissues. 2. Findings are nonspecific. This could represent a small seroma or abscess. Would consider CT scan of the abdomen without contrast for further evaluation to determine if there is intraperitoneal extension. Bobby Gray MD Gastrostomy Tube Placement 02/25/17 0000 Signed Impressions: Service Date/Time: Saturday, February 25, 2017 14:19 - CONCLUSION: Uncomplicated exchange of gastroenteric feeding tube for gastrostomy tube as above. Positioning confirmed. The tube can be used immediately. Glen Zamora MD Tube Change 02/14/17 0000 Signed Impressions: Service Date/Time: Tuesday, February 14, 2017 00:00 - CONCLUSION: Uncomplicated gastrojejunostomy tube exchange as above. Scott Griffin MD Head CT 01/09/17 0000 Signed Impressions: Service Date/Time: December 17:43 - CONCLUSION: 1. No acute hemorrhage or mass effect. 2. 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 3. Atrophy. Gerald Mukherjee MD CT Angiography 01/09/17 0000 Signed Impressions: Service Date/Time: December 17:49 - CONCLUSION: 1. No evidence of pulmonary emboli. 2. Patchy consolidation in both posterior lower lobes right greater than left. This could represent pneumonia. 3. 2 small noncalcified pulmonary nodules which are nonspecific finding. Short-term CT followup is recommended beginning in 6 months with a noncontrast outpatient CT. Gerald Mukherjee MD Tube Check 12/04/16 0000 Signed Impressions: Service Date/Time: Sunday, December 04, 2016 17:58 - CONCLUSION: Uncomplicated tube injection as above. the tube is in good position and functions normally. Moises Ramírez MD Abdomen X-Ray 08/31/16 0000 Signed Impressions: Service Date/Time: Wednesday, August 31, 2016 16:36 - CONCLUSION: 1. No acute findings. Mild constipation. Durga Dotson MD Head Magnetic Resonance Angiography 03/05/16 0000 Signed Impressions: Service Date/Time: Saturday, March 05, 2016 09:26 - CONCLUSION: Persistent high-grade subtotal occlusive stenotic lesions in the distal right vertebral artery and proximal basilar artery with significant improvement in flow and recanalization following initial presentation of thrombosis. Stable interstitial circulation without significant stenosis. Ernesto Kulkarni MD Brain MRI 03/05/16 0000 Signed Impressions: Service Date/Time: Saturday, March 05, 2016 09:26 - CONCLUSION: Evolving brainstem and bilateral occipital lobe infarcts with evidence of subacute hemorrhagic products. There is decreasing restricted diffusion and increasing loss of volume characteristic of a subacute to chronic infarct. No evidence of acute infarct, acute hemorrhage mass or edema. Ernesto Kulkarni MD Neck Magnetic Resonance Angiography 12/22/15 1445 Signed Impressions: Service Date/Time: Tuesday, December 22, 2015 09:22 - CONCLUSION: Variant origin of the left vertebral artery from the aortic arch. No evidence of carotid stenosis. Glen Zamora MD Head/Brain Mag Res Venography 12/22/15 0000 Signed Impressions: Service Date/Time: Tuesday, December 22, 2015 09:22 - CONCLUSION: Normal MRV. Jonel Jones Jr., MD Procedures * 01/01 tracheostomy, PEG tube placement . 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; EEG indicates encephalopathy, neuro following patient felt to be in a "locked-in "state (2) Non-Hodgkin lymphoma Comment: -In remission status post chemotherapy completed May 2015 (3) Acute respiratory failure Comment: Pulmonology following, medical management (4) A-fib (5) Status post stereotactic brain biopsy (6) Brain lesion Comment: Status post biopsy November 2015; pathology consistent with acute infarct without evidence of lymphoma (7) DM (diabetes mellitus) Symptom Scale: (1) Dysphagia (2) Dyspnea (3) Encephalopathy (4) Malnutrition (5) Depression Pertinent Non-Medical Issues * Psychosocial:Mr. Flores is originally from [place]. He moved to the around 35 years ago, first to [place] and later to [place]. He is not legally but remains with his ex-, Leanne. They have been together for 31+ years and have three children together: Leanne, Gerald, and Ginny. Gerald is currently in [employer] for work. Mr. Flores has 2 brothers and 7 sisters. His father is of old age. His mother is alive and was living with the patient. Greatly enjoys his family. Retired. 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 * Spiritual: * Legal:Patient due to clinical condition is currently unable to participate in medical decision making. Not clear he will regain this ability. Family does not believe he has completed advance directives. per [place] Statutes, medical proxy decision making would fall to the majority of adult children, as Mr. Flores is not legally . His ex Leanne and children ALL participate in decision making, with dtr Leanne and ex Leanne serving as primary points of contact. * Ethical issues impacting care: Important Contacts Leanen, daughter: [phone] Ginny, daughter: [phone] Gerald Flores, son: currently in [facility] for work but has communication with his siblings. Leanne, ex-: [phone] . Prognosis This patient has had 20 day hospital course thus far, admitted on 62 for a large brainstem infarct, bilateral occipital infarcts. He has subsequently had ongoing encephalopathy and severe communication limitations, neurology feels he is in a "locked-in "state. He has suffered from respiratory failure likely secondary to significant CVA. Appears he should be able to survive this acute hospitalization, however not clear when or if he will regain ability to communicate, based on current assessments patient will require long-term care placement. He will remain high risk for potential competition/setbacks due to immobile status including infections, DVT etc. . Code Status: Alternative Code Plan * Legal decision maker - Of note per [place] Statutes, medical proxy decision making would fall to the majority of adult children, as Mr. Flores is not legally . His ex Leanne and children ALL participate in decision making, with dtr Leanne and ex Leanne serving as primary points of contact. * * GOALS: 03/10/17 - palliative care reconsulted. Known to palliative care, seen today in follow up. Goals remain aggressive. They would like to speak directly with oncologist regarding any other potential options beyond chemotherapy. They endorse patient does have some quality of life and would want to continue treatments available to maintain his present quality of life. Daughter, would like to meet with oncology to discuss further. * CODE STATUSalt code-- vent only * Symptoms: == Dysphagia--Status post significant CVA, has had PEG tube placed; no improvement per ST following --prev. trial with a passy mikey valve, patient with no response or attempt to verbalize--intermittently w copoius secretions. ST signed off == Dyspnea --Respiratory failure secondary to CVA, status post tracheostomy, pulmonary following; currently no apparent distress/ O2 sats / O2 requirements stable--O2 sat stable; in ICU briefly last month, required vent, now stable on 28% FiO2 to T piece. 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 == Malnutrition--Status post PEG tube placement. currently tolerating TF; having bowel movements,- s/p GJ tube . Multiple episodes of GJ tube clogs, currently functioning well. 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 Has morphine 1 mg prn for pain, dressing changes etc. also has Tylenol with Codeine available last dose of morphine on 10/22, last dose of Tylenol with codeine on 03/06, per family appears comfortable. * Palliative care will continue to follow during hospital course as condition evolves, to assist patient/decision-maker with understanding of medical conditions, weighing benefits/burdens of treatment options, for clarification of goals of treatment. Additionally will assist with any symptoms of palliative concern Attestation To help prompt me to consider important information that might be impacting today's encounter and assessment, information from prior notes written by myself or my colleagues may have been "brought forward" into today's note. My signature on this note, however, is an attestation that I personally performed the exam, history, and/or decision-making noted today, and, unless otherwise indicated, the interactions with patient, family, and staff as well as the review of records all occurred today. I also attest that the listed assessment and stated plan reflect my best clinical judgment today based on the combination of historical information, prior notes, and today's exam/ interactions. When time spent is documented, it refers only to time spent today by the signer, or if indicated, combined time spent today by collaborating physician/nurse practitioner. Tiara Colin Mar 10, 2017 11:42
[2017-03-10] MEDS: ACETAMINOPHEN/CODEINE ELIX 120 MG/12 MG/5 ML CUP G-TUBE PRN (12:22)
[2017-03-10] MEDS: VANCOMYCIN INJ 1,250 MG in SODIUM CHLOR 0.9% 250 ML INJ 250 ML IV SCH ×2 (12:23→23:22)
[2017-03-10 13:17] LABS: AUTOMATED NEUTROPHIL # 3.8 TH/MM3 (1.8-7.7); BASOPHIL % 0.8 % (0.0-2.0); EOSINOPHIL # 0.1 TH/MM3 (0-0.4); EOSINOPHIL % 2.8 % (0.0-4.0); HEMATOCRIT 25.3 % (39.0-51.0); HEMO FLAGS DIFF FINAL; LYMPH % 19.2 % (9.0-44.0); MEAN CELL VOLUME 72.7 FL (80.0-100.0); MEAN CORPUSCULAR HEMOGLOBIN 22.5 PG (27.0-34.0); MONO % 5.1 % (0.0-8.0); NEUT % 72.1 % (16.0-70.0); PLATELET COUNT 232 TH/MM3 (150-450); RED BLOOD COUNT 3.48 MIL/MM3 (4.50-5.90); RED CELL DISTRIBUTION WIDTH 20.3 % (11.6-17.2); WHITE BLOOD COUNT 5.2 TH/MM3 (4.0-11.0)
[2017-03-10 13:34] LABS: BICARBONATE 24.9 MEQ/L (21.0-32.0); MAGNESIUM 2.1 MG/DL (1.5-2.5); POTASSIUM 3.7 MEQ/L (3.5-5.1)
--- NOTE | 2017-03-10 15:48 | HHI.PR ---
Subjective Remarks ass OPENS EYES NO DISTRESS o2 sat 95% cystoscopy and biopsy small cell CA Objective Vital Signs Date Time Temp Pulse Resp B/P (MAP) Pulse Ox O2 Delivery O2 Flow Rate FiO2 03/10/17 09:35 100 T-piece 5.00 28 03/10/17 08:00 96.7 99 20 125/76 (92) 100 03/10/17 08:00 Trach Collar T-Piece 03/10/17 00:00 98.1 109 18 118/65 (82) 99 03/09/17 21:42 99 T-piece 5.00 28 03/09/17 20:45 Nasal Cannula 03/09/17 20:00 98.0 112 18 111/73 (86) 100 03/09/17 16:00 96.2 112 18 108/63 (78) 100 I/O 03/09/17 03/09/17 03/09/17 03/10/17 03/10/17 03/10/17 07:00 15:00 23:00 07:00 15:00 23:00 Intake Total 453 ml 1112 ml 490 ml 200 ml Output Total 1700 ml 1225 ml 350 ml Balance -1247 ml -113 ml 140 ml 200 ml Intake Oral 0 ml 0 ml 0 ml Tube Feeding 453 ml 756 ml 345 ml Tube Irrigant 145 ml Other 356 ml 200 ml Output Urine Total 1700 ml 1225 ml 350 ml # Bowel Movements 1 4 0 Result Diagram: 03/10/17 1220 03/10/17 1220 Procedures 01/02/16 PEG placement 01/02/16 tracheostomy 07/22/2016 Wide excision of sacral skin wound, biopsy of the cavity lining and debridement. PEG tube replacement 07/29/16 Objective Remarks GENERAL: SKIN: Warm and dry. HEAD: Atraumatic. Normocephalic. EYES: Pupils equal and round. No scleral icterus. No injection or drainage. ENT: No nasal bleeding or discharge. Mucous membranes pink and moist. NECK: Trachea midline. No JVD. CARDIOVASCULAR: Regular rate and rhythm. RESPIRATORY: No accessory muscle use. Clear to auscultation. Breath sounds equal bilaterally. GASTROINTESTINAL: Abdomen soft, non-tender, nondistended. Hepatic and splenic margins not palpable. MUSCULOSKELETAL: Extremities without clubbing, cyanosis, or edema. No obvious deformities. NEUROLOGICAL: Awake and alert. No obvious cranial nerve deficits. Motor grossly within normal limits. Five out of 5 muscle strength in the arms and legs. Normal speech. PSYCHIATRIC: Appropriate mood and affect; insight and judgment normal. Laboratory Tests Test 01/05/17 01/06/17 08:35 08:41 Red Blood Count 4.43 MIL/MM3 (4.50-5.90) Hemoglobin 9.9 GM/DL (13.0-17.0) Hematocrit 32.0 % (39.0-51.0) Mean Corpuscular Volume 72.1 FL (80.0-100.0) Mean Corpuscular Hemoglobin 22.3 PG (27.0-34.0) Mean Corpuscular Hemoglobin 30.9 % Concent (32.0-36.0) Red Cell Distribution Width 19.9 % (11.6-17.2) Sodium Level 134 MEQ/L 133 MEQ/L (136-145) (136-145) Random Glucose 136 MG/DL 132 MG/DL (74-106) (74-106) Creatinine 0.59 MG/DL (0.60-1.30) GENERAL: SKIN: Warm and dry. HEAD: Atraumatic. Normocephalic. EYES: Pupils equal and round. No scleral icterus. No injection or drainage. ENT: No nasal bleeding or discharge. Mucous membranes pink and moist. NECK: Trachea midline. No JVD. TRACH. [place] CARDIOVASCULAR: Regular rate and rhythm. RESPIRATORY: No accessory muscle use. Clear to auscultation. Breath sounds equal bilaterally. GASTROINTESTINAL: Abdomen soft, non-tender, nondistended. Hepatic and splenic margins not palpable. MUSCULOSKELETAL: Extremities without clubbing, cyanosis, or edema. No obvious deformities. NEUROLOGICAL: Awake and alert. No obvious cranial nerve deficits. Motor grossly within normal limits. Five out of 5 muscle strength in the arms and legs. Normal speech. PSYCHIATRIC: Appropriate mood and affect; insight and judgment normal. 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 TOILET ONCOLOGY TO FOLLOW Brandon Taylor MD Mar 10, 2017 15:48
[2017-03-10] MEDS: SENNOSIDES SYRUP 8.8 MG/5 ML CUP PEG SCH (17:41)
[2017-03-10] MEDS: PARoxetine HCL SUSP 20 MG/10 ML UDC PEG SCH (17:42)
--- NOTE | 2017-03-10 21:43 | RADRPT ---
EXAM DATE/TIME: 03/10/2017 21:00 [place] COMPARISON: CT THORAX W CONTRAST, December 09, 2015, 11:29. INDICATIONS : Respiratory distress; patient with Non-Hodgkins lymphoma - possible metastatic disease. IV CONTRAST: 71 cc Omnipaque 350 (iohexol) IV RADIATION DOSE: 5.37 CTDIvol (mGy) MEDICAL HISTORY : Hypertension. Diabetes mellitus type 2. Non-Hodgkin Lymphoma. Bladder mass. CVA. SURGICAL HISTORY : None. ENCOUNTER: Initial ACUITY: 1 day PAIN SCALE: 0/10 LOCATION: chest TECHNIQUE: Volumetric scanning of the chest was performed. Using automated exposure control and adjustment of t he mA and/or kV according to patient size, radiation dose was kept as low as reasonably achievable to obtain optimal diagnostic quality images. DICOM format image data is available electronically for review and comparison. Follow-up recommendations for detected pulmonary nodules are based at a minimum on nodule size and pa tient risk factors according to Fleischner Society Guidelines. FINDINGS: LUNGS: Mild airspace disease is seen bilaterally in the right lower lobe, lingula and left lower lobe. PLEURA: There is no pleural thickening or pleural effusion. MEDIASTINUM: Periaortic soft tissue is identified extending from the aortic arch caudally along the left lateral m argin of the aorta. The aortic wall appears intact. There is no mediastinal or hilar lymphadenopathy. AXILLAE: Within normal limits. No lymphadenopathy. SKELETAL: Within normal limits for patient age. MISCELLANEOUS: The visualized upper abdominal organs demonstrate no acute abnormality. The spleen is moderately enla rged. CONCLUSION: 1. Periaortic soft tissue along the proximal descending thoracic aorta not previously seen. This repr esents either lymphomatous involvement or adjacent consolidated airspace disease. 2. Mild bilateral airspace disease 3. No evidence of significant lymphadenopathy involving the mediastinum, hilar regions, axillas or torres praclavicular lore chain. 4. Tracheostomy tube in place. Ernesto Kulkarni MD on March 10, 2017 at 21:29 Board Certified Radiologist. This report was verified electronically.
--- NOTE | 2017-03-10 23:45 | PD.ONC.PN ---
Subjective Subjective Remarks pt is nonverbal mom at bedside. she claims that pt understand but can not express himself. Objective Data Date Time Temp Pulse Resp B/P (MAP) Pulse Ox O2 Delivery O2 Flow Rate FiO2 03/10/17 20:00 98.1 99 20 117/70 (86) 100 03/10/17 19:57 100 T-piece 5.00 28 03/10/17 19:57 100 T-piece 5.00 28 03/10/17 16:00 97.0 95 16 109/63 (78) 100 03/10/17 12:00 97.8 95 18 119/70 (86) 99 03/10/17 09:35 100 T-piece 5.00 28 03/10/17 08:00 96.7 99 20 125/76 (92) 100 03/10/17 08:00 Trach Collar T-Piece 03/10/17 00:00 98.1 109 18 118/65 (82) 99 Result Diagram: 03/10/17 1220 03/10/17 1220 Laboratory Results Laboratory Tests Test 03/10/17 12:20 White Blood Count 5.2 TH/MM3 Red Blood Count 3.48 MIL/MM3 Hemoglobin 7.8 GM/DL Hematocrit 25.3 % Mean Corpuscular Volume 72.7 FL Mean Corpuscular Hemoglobin 22.5 PG Mean Corpuscular Hemoglobin Concent 31.0 % Red Cell Distribution Width 20.3 % Platelet Count 232 TH/MM3 Mean Platelet Volume 8.7 FL Neutrophils (%) (Auto) 72.1 % Lymphocytes (%) (Auto) 19.2 % Monocytes (%) (Auto) 5.1 % Eosinophils (%) (Auto) 2.8 % Basophils (%) (Auto) 0.8 % Neutrophils # (Auto) 3.8 TH/MM3 Lymphocytes # (Auto) 1.0 TH/MM3 Monocytes # (Auto) 0.3 TH/MM3 Eosinophils # (Auto) 0.1 TH/MM3 Basophils # (Auto) 0.0 TH/MM3 CBC Comment DIFF FINAL Differential Comment Blood Urea Nitrogen 19 MG/DL Creatinine 0.90 MG/DL Random Glucose 163 MG/DL Calcium Level 8.6 MG/DL Magnesium Level 2.1 MG/DL Sodium Level 131 MEQ/L Potassium Level 3.7 MEQ/L Chloride Level 96 MEQ/L Carbon Dioxide Level 24.9 MEQ/L Anion Gap 10 MEQ/L Estimat Glomerular Filtration Rate 86 ML/MIN Administered Medications Medications (Trade) Dose Ordered Sig/Junior Route PRN Reason Start Time Stop Time Status Last Admin Dose Admin IV Flush (NS Flush) 2 ml UNSCH PRN IVF FLUSH AFTER USING IV ACCESS 12/21/15 06:00 09/28/16 21:18 Levetriacetam (Keppra Liq) 500 mg Q12HR TUBE 12/27/15 21:00 03/10/17 21:35 Acetaminophen (Tylenol 650 Mg/ 20 ml Liq) 650 mg Q6H PRN TUBE TEMP >100.4 12/30/15 15:15 01/18/17 21:34 Nystatin (Mycostatin Powder) 1 applic Q12HR TOPICAL 01/08/16 21:00 03/10/17 21:00 Acetic Acid (Acetic Acid 0.25% Irr Btl) 10 ml Q8HR IRRIGATION 02/05/16 16:00 03/10/17 22:00 Paroxetine HCl (Paxil Liq) 20 mg DAILY@1900 PEG 03/12/16 19:00 Future hold 03/10/17 17:42 Ondansetron HCl (Zofran Inj) 4 mg Q6HR PRN IV PUSH nausea/vomiting 04/14/16 19:45 08/10/16 10:16 Levalbuterol HCl (Xopenex Neb) 0.63 mg Q4HR NEB PRN NEB SHORTNESS OF BREATH 05/05/16 12:00 03/06/17 10:45 Aspirin (Aspirin) 325 mg DAILY TUBE 05/27/16 11:40 Future Hold 02/25/17 08:28 Heparin Sodium (Porcine) (Heparin Inj) 5,000 units Q8HR SQ 06/11/16 14:00 Future hold 03/10/17 21:37 Bacitracin (Baciguent Oint) 1 applic BID TOP 07/20/16 10:00 03/10/17 21:00 Sodium Chloride ([place]) 1 spray BID NASAL 08/01/16 21:00 03/10/17 21:00 Artificial Tears (Tears Naturale Opth Soln) 1 drop BID EACH EYE 09/05/16 21:00 03/10/17 21:00 Morphine Sulfate (Morphine Inj) 1 mg Q24H PRN IV PUSH dressing change 30 min before 09/17/16 14:30 10/22/16 02:00 Bisacodyl (Dulcolax Supp) 10 mg DAILY PRN RECTAL SEVERE CONSTIPATION IF NOT PO 09/26/16 15:30 12/08/16 09:17 Acetaminophen/ Codeine Phosphate (Tylenol - Codeine 120-12 Liq) 5 ml Q4H PRN G-TUBE pain 2-10 12/27/16 15:30 03/10/17 12:22 Loperamide HCl (Imodium Liq) 2 mg Q6H PRN PEG DIARRHEA 12/27/16 15:30 01/24/17 20:05 Magnesium Hydroxide (Milk Of Magnesia Liq) 30 ml DAILY PRN PEG mild-moderate constipation 12/27/16 15:30 02/11/17 08:46 Magnesium Hydroxide (Milk Of Magnesia Liq) 30 ml DAILY PEG 12/28/16 09:00 Future Hold 01/19/17 08:44 Sennosides (Senna Liq) 8.8 mg DAILY@1600 PEG 12/27/16 16:00 03/10/17 17:41 Diltiazem HCl (Cardizem) 30 mg QID PEG 01/09/17 18:00 03/10/17 21:38 Lansoprazole (Prevacid Odt) 30 mg BID NG 01/26/17 21:00 03/10/17 21:38 Arginine HCl (Ashish Powder) 1 pack BID G-TUBE 02/10/17 21:00 03/10/17 09:36 Ferrous Sulfate (Ferrous Sulfate Liq) 300 mg DAILY PO 02/14/17 09:00 03/10/17 07:49 Ascorbic Acid (Vitamin C) 1,000 mg DAILY PO 02/14/17 09:00 03/10/17 07:49 Bacitracin (Bacitracin Oint Packet) 0.9 gm DAILY TOPICAL 02/25/17 09:00 03/10/17 09:36 Albuterol/ Ipratropium (Duoneb Neb) 1 ampule Q4HR WHILE AWAKE NEB NEB 03/07/17 12:00 03/10/17 19:57 Hyoscyamine Sulfate (Levsin) 0.25 mg Q8H G-TUBE 03/09/17 22:00 04/08/17 21:59 8/21/17 21:38 Vancomycin HCl 1250 mg/Sodium Chloride 262.5 ml @ 250 mls/hr Q12H IV 03/10/17 11:00 03/10/17 23:22 Objective Remarks GENERAL: Chronically ill patient. SKIN: Warm and dry. HEAD: Normocephalic. EYES: No scleral icterus. No injection or drainage. NECK: Supple, trachea midline. No JVD or lymphadenopathy. LYMPHATIC: No adenopathy. CARDIOVASCULAR: Regular rate and rhythm without murmurs. RESPIRATORY: Breath sounds equal bilaterally. No accessory muscle use. GASTROINTESTINAL: Abdomen soft, non-tender, nondistended. EXTREMITIES: No cyanosis, or edema. . NEUROLOGICAL: Awake, alert, and nonverbal PSYCHIATRIC: unable to assess Assessment/Plan Problem List: (1) Bladder mass ICD Codes: N32.89 - Other specified disorders of bladder Status: Acute Plan: Develop hematuria CTAbd and pelvis = bladder mass s/p TURBT path is c/w small cell cancer ( primary vs metastatic ?) Palliative care saw the pt again and have discuss with the family. Family wants everything done. will get CT chest to find primary site. If that shows lung mass then he is not a candidate for any treatment. However if CT chest shows no mass then i recommend XRT consult for palliative treatment. He is not a candidate for any chemotherapy. D/W mom ( speak very little mongolian). Will discuss with family tomorrow after CT chest . The exam, history, and the medical decision-making described in the above note were completed with the assistance of the mid-level provider. I reviewed and agree with the findings presented. I attest that I had a [id number] encounter with the patient on the same day, and personally performed and documented my assessment and findings in the medical record. (2) Non-Hodgkin lymphoma ICD Codes: C85.90 - Non-Hodgkin lymphoma, unspecified, unspecified site Status: Chronic Plan: no evidence of recurrence Ed Whyte MD Mar 10, 2017 23:45
[2017-03-11] VITALS: BP 111/66; PULSE 104; RESP 20; TEMP 97.2; O2SAT 99
[2017-03-11] MEDS: HEPARIN SODIUM - SQ 10,000 UNITS/ML VIAL SQ SCH ×3 (05:13→21:34)
[2017-03-11] MEDS: HYOSCYAMINE 0.125 MG TAB G-TUBE SCH ×3 (05:13→21:33)
[2017-03-11] MEDS: ACETIC ACID 0.25% SOLN 1000 ML IRR BTL IRRIGATION SCH ×3 (05:13→21:38)
[2017-03-11] MEDS: LANSOPRAZOLE SOLUTAB 30 MG TAB NG SCH ×2 (07:43→21:34)
[2017-03-11] MEDS: ASCORBIC ACID 500 MG TAB PO SCH (07:43)
[2017-03-11] MEDS: levETIRAcetam 500 MG/5 ML UDC TUBE SCH ×2 (07:43→21:34)
[2017-03-11] MEDS: DILTIAZEM HCL 30 MG TAB PEG SCH ×4 (07:43→21:34)
[2017-03-11 08:00] VITALS: BP 115/70; PULSE 101; RESP 20; TEMP 97.9; O2SAT 100
[2017-03-11] MEDS: ARTIFICIAL TEARS OPTH SOLN 15 ML BTL EACH EYE SCH ×2 (08:13→21:00)
[2017-03-11] MEDS: BACITRACIN OINT 0.9 GM PKT TOPICAL SCH (08:14)
[2017-03-11] MEDS: SODIUM CHLORIDE 0.65% NASAL SPRAY 45 ML BTL NASAL SCH ×2 (08:14→21:00)
[2017-03-11] MEDS: JUVEN POWDER 1 PACK G-TUBE SCH ×2 (08:14→21:00)
[2017-03-11] MEDS: BACITRACIN TOP OINT 15 GM TUBE TOP SCH ×2 (08:14→21:00)
[2017-03-11] MEDS: NYSTATIN 100,000 U/GM PWD 15 GM BTL TOPICAL SCH ×2 (08:15→21:00)
[2017-03-11 08:36] VITALS: O2SAT 98
[2017-03-11] MEDS: RESP: ALBUTEROL 2.5 MG/IPRATROPIUM 0.5 MG NEB (SCH) NEB (08:36)
[2017-03-11] MEDS: FERROUS SULFATE 300 MG /5ML UDC PO SCH (09:12)
[2017-03-11] MEDS: ACETAMINOPHEN/CODEINE ELIX 120 MG/12 MG/5 ML CUP G-TUBE PRN (10:44)
[2017-03-11] MEDS: VANCOMYCIN INJ 1,250 MG in SODIUM CHLOR 0.9% 250 ML INJ 250 ML IV SCH ×2 (10:44→21:33)
[2017-03-11 11:41] VITALS: BP 103/64; PULSE 106; RESP 20; TEMP 98.6; O2SAT 96
--- NOTE | 2017-03-11 11:51 | PD.ONC.PN ---
Subjective Subjective Remarks Pt resting in bed with family member at bedside Objective Data Date Time Temp Pulse Resp B/P (MAP) Pulse Ox O2 Delivery O2 Flow Rate FiO2 03/11/17 08:36 98 T-piece 6.00 28 03/11/17 08:00 Trach Collar T-Piece 03/11/17 08:00 97.9 101 20 115/70 (85) 100 03/11/17 00:00 97.2 104 20 111/66 (81) 99 03/10/17 20:00 98.1 99 20 117/70 (86) 100 03/10/17 19:57 100 T-piece 5.00 28 03/10/17 19:57 100 T-piece 5.00 28 03/10/17 16:00 97.0 95 16 109/63 (78) 100 03/10/17 12:00 97.8 95 18 119/70 (86) 99 03/11/17 03/11/17 03/11/17 06:59 14:59 22:59 Intake Total 867 ml Output Total 1600 ml Balance -733 ml Result Diagram: 03/10/17 1220 03/10/17 1220 Laboratory Results Laboratory Tests Test 03/10/17 12:20 White Blood Count 5.2 TH/MM3 Red Blood Count 3.48 MIL/MM3 Hemoglobin 7.8 GM/DL Hematocrit 25.3 % Mean Corpuscular Volume 72.7 FL Mean Corpuscular Hemoglobin 22.5 PG Mean Corpuscular Hemoglobin Concent 31.0 % Red Cell Distribution Width 20.3 % Platelet Count 232 TH/MM3 Mean Platelet Volume 8.7 FL Neutrophils (%) (Auto) 72.1 % Lymphocytes (%) (Auto) 19.2 % Monocytes (%) (Auto) 5.1 % Eosinophils (%) (Auto) 2.8 % Basophils (%) (Auto) 0.8 % Neutrophils # (Auto) 3.8 TH/MM3 Lymphocytes # (Auto) 1.0 TH/MM3 Monocytes # (Auto) 0.3 TH/MM3 Eosinophils # (Auto) 0.1 TH/MM3 Basophils # (Auto) 0.0 TH/MM3 CBC Comment DIFF FINAL Differential Comment Blood Urea Nitrogen 19 MG/DL Creatinine 0.90 MG/DL Random Glucose 163 MG/DL Calcium Level 8.6 MG/DL Magnesium Level 2.1 MG/DL Sodium Level 131 MEQ/L Potassium Level 3.7 MEQ/L Chloride Level 96 MEQ/L Carbon Dioxide Level 24.9 MEQ/L Anion Gap 10 MEQ/L Estimat Glomerular Filtration Rate 86 ML/MIN Administered Medications Medications (Trade) Dose Ordered Sig/Junior Route PRN Reason Start Time Stop Time Status Last Admin Dose Admin IV Flush (NS Flush) 2 ml UNSCH PRN IVF FLUSH AFTER USING IV ACCESS 12/21/15 06:00 09/28/16 21:18 Levetriacetam (Keppra Liq) 500 mg Q12HR TUBE 12/27/15 21:00 03/11/17 07:43 Acetaminophen (Tylenol 650 Mg/ 20 ml Liq) 650 mg Q6H PRN TUBE TEMP >100.4 12/30/15 15:15 01/18/17 21:34 Nystatin (Mycostatin Powder) 1 applic Q12HR TOPICAL 01/08/16 21:00 03/11/17 08:15 Acetic Acid (Acetic Acid 0.25% Irr Btl) 10 ml Q8HR IRRIGATION 02/05/16 16:00 03/11/17 05:13 Paroxetine HCl (Paxil Liq) 20 mg DAILY@1900 PEG 03/12/16 19:00 Future hold 03/10/17 17:42 Ondansetron HCl (Zofran Inj) 4 mg Q6HR PRN IV PUSH nausea/vomiting 04/14/16 19:45 08/10/16 10:16 Levalbuterol HCl (Xopenex Neb) 0.63 mg Q4HR NEB PRN NEB SHORTNESS OF BREATH 05/05/16 12:00 03/06/17 10:45 Aspirin (Aspirin) 325 mg DAILY TUBE 05/27/16 11:40 Future Hold 02/25/17 08:28 Heparin Sodium (Porcine) (Heparin Inj) 5,000 units Q8HR SQ 06/11/16 14:00 Future hold 03/11/17 05:13 Bacitracin (Baciguent Oint) 1 applic BID TOP 07/20/16 10:00 03/11/17 08:14 Sodium Chloride ([place]) 1 spray BID NASAL 08/01/16 21:00 03/11/17 08:14 Artificial Tears (Tears Naturale Opth Soln) 1 drop BID EACH EYE 09/05/16 21:00 03/11/17 08:13 Morphine Sulfate (Morphine Inj) 1 mg Q24H PRN IV PUSH dressing change 30 min before 09/17/16 14:30 10/22/16 02:00 Bisacodyl (Dulcolax Supp) 10 mg DAILY PRN RECTAL SEVERE CONSTIPATION IF NOT PO 09/26/16 15:30 12/08/16 09:17 Acetaminophen/ Codeine Phosphate (Tylenol - Codeine 120-12 Liq) 5 ml Q4H PRN G-TUBE pain 2-10 12/27/16 15:30 03/11/17 10:44 Loperamide HCl (Imodium Liq) 2 mg Q6H PRN PEG DIARRHEA 12/27/16 15:30 01/24/17 20:05 Magnesium Hydroxide (Milk Of Magnesia Liq) 30 ml DAILY PRN PEG mild-moderate constipation 12/27/16 15:30 02/11/17 08:46 Magnesium Hydroxide (Milk Of Magnesia Liq) 30 ml DAILY PEG 12/28/16 09:00 Future Hold 01/19/17 08:44 Sennosides (Senna Liq) 8.8 mg DAILY@1600 PEG 12/27/16 16:00 03/10/17 17:41 Diltiazem HCl (Cardizem) 30 mg QID PEG 01/09/17 18:00 03/11/17 07:43 Lansoprazole (Prevacid Odt) 30 mg BID NG 01/26/17 21:00 03/11/17 07:43 Arginine HCl (Ashish Powder) 1 pack BID G-TUBE 02/10/17 21:00 03/11/17 08:14 Ferrous Sulfate (Ferrous Sulfate Liq) 300 mg DAILY PO 02/14/17 09:00 03/11/17 09:12 Ascorbic Acid (Vitamin C) 1,000 mg DAILY PO 02/14/17 09:00 03/11/17 07:43 Bacitracin (Bacitracin Oint Packet) 0.9 gm DAILY TOPICAL 02/25/17 09:00 03/11/17 08:14 Albuterol/ Ipratropium (Duoneb Neb) 1 ampule Q4HR WHILE AWAKE NEB NEB 03/07/17 12:00 03/11/17 08:36 Hyoscyamine Sulfate (Levsin) 0.25 mg Q8H G-TUBE 03/09/17 22:00 04/08/17 21:59 03/11/17 05:13 Vancomycin HCl 1250 mg/Sodium Chloride 262.5 ml @ 250 mls/hr Q12H IV 03/10/17 11:00 03/11/17 10:44 Objective Remarks GENERAL: Chronically ill patient resting in bed in no distress. SKIN: Warm and dry. HEAD: Normocephalic. EYES: No injection or drainage. NECK: Supple, trachea midline. CARDIOVASCULAR: Regular rate and rhythm without murmurs. RESPIRATORY: Breath sounds equal bilaterally. No accessory muscle use. GASTROINTESTINAL: Abdomen soft, non-tender, nondistended. EXTREMITIES: No cyanosis, or edema. NEUROLOGICAL: Nonverbal. Not following commands. Occasional tracking with eyes. Assessment/Plan Problem List: (1) Bladder mass ICD Codes: N32.89 - Other specified disorders of bladder Status: Acute Plan: 03/11/17: The pt's CT chest was negative for malignancy. Will consult radiation oncology to evaluate for XRT to bladder mass. Pt is not a candidate for chemotherapy. Workup: The pt developed hematuria while inpatient and imaging found a 5.4x3.5cm bladder mass. Pathology showed small cell carcinoma. CT chest negative for malignancy. Palliative care saw the pt again and have discuss with the family. Family wants everything done. (2) Non-Hodgkin lymphoma ICD Codes: C85.90 - Non-Hodgkin lymphoma, unspecified, unspecified site Status: Chronic Plan: no evidence of recurrence Assessment 61 y/o male with prolonged hospitalization found to have a bladder mass. Attending Statement Patient remains nonverbal CT chest does not show any malignancy. 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 I Recommend radiation oncology consult. Radiation would be only for local control. Small cell cancer usually metastasize and it is a systemic disease. Unfortunately Patient is not a candidate for any chemotherapy. Patient is in a vegetative state, Poor performance status, He is at a higher risk for infection and sepsis with chemotherapy. The exam, history, and the medical decision-making described in the above note were completed with the assistance of the mid-level provider. I reviewed and agree with the findings presented. I attest that I had a [id number] encounter with the patient on the same day, and personally performed and documented my assessment and findings in the medical record. Lynne Castañeda Mar 11, 2017 11:50 Ed Whyte MD Mar 11, 2017 22:43
--- NOTE | 2017-03-11 14:10 | HHI.PR ---
Subjective Patient symptoms today Non-verbal Objective Vital Signs Vital Signs Date Time Temp Pulse Resp B/P (MAP) Pulse Ox O2 Delivery O2 Flow Rate FiO2 03/11/17 11:41 98.6 106 20 103/64 (77) 96 03/11/17 08:36 98 T-piece 6.00 28 03/11/17 08:00 Trach Collar T-Piece 03/11/17 08:00 97.9 101 20 115/70 (85) 100 03/11/17 00:00 97.2 104 20 111/66 (81) 99 03/10/17 20:00 98.1 99 20 117/70 (86) 100 03/10/17 19:57 100 T-piece 5.00 28 03/10/17 19:57 100 T-piece 5.00 28 03/10/17 16:00 97.0 95 16 109/63 (78) 100 Intake & Output 03/11/17 03/11/17 06:59 18:59 Intake Total 867 ml Output Total 1600 ml Balance -733 ml IV Total 260 ml Tube Feeding 427 ml Other 180 ml Output Urine Total 1600 ml Result Diagram: 03/10/17 1220 03/10/17 1220 Other Results Pathology: Bladder mass comprised of small cell carcinoma; primary vs. metastatic disease CT Chest: Neg for tumor Objective Remarks Arevalo catheter draining clear yellow urine Medications and IVs Current Medications Medications (Trade) Dose Ordered Sig/Junior Route Start Time Stop Time Status Last Admin (NS Flush) 2 ml UNSCH PRN IVF 12/21/15 06:00 09/28/16 21:18 (Keppra Liq) 500 mg Q12HR TUBE 12/27/15 21:00 03/11/17 07:43 (Tylenol 650 Mg/ 20 ml Liq) 650 mg Q6H PRN TUBE 12/30/15 15:15 01/18/17 21:34 (Mycostatin Powder) 1 applic Q12HR TOPICAL 01/08/16 21:00 03/11/17 08:15 (Pill Splitter) 1 ea UNSCH PRN OTHER 01/14/16 08:30 (Acetic Acid 0.25% Irr Btl) 10 ml Q8HR IRRIGATION 02/05/16 16:00 03/11/17 12:56 (Paxil Liq) 20 mg DAILY@1900 PEG 03/12/16 19:00 Future hold 03/10/17 17:42 (Zofran Inj) 4 mg Q6HR PRN IV PUSH 04/14/16 19:45 08/10/16 10:16 (Xopenex Neb) 0.63 mg Q4HR NEB PRN NEB 05/05/16 12:00 03/06/17 10:45 (Aspirin) 325 mg DAILY TUBE 05/27/16 11:40 Future Hold 02/25/17 08:28 (Heparin Inj) 5,000 units Q8HR SQ 06/11/16 14:00 Future hold 03/11/17 12:54 (Baciguent Oint) 1 applic BID TOP 07/20/16 10:00 03/11/17 08:14 ([place]) 1 spray BID NASAL 08/01/16 21:00 03/11/17 08:14 (Tears Naturale Opth Soln) 1 drop BID EACH EYE 09/05/16 21:00 03/11/17 08:13 (Morphine Inj) 1 mg Q24H PRN IV PUSH 09/17/16 14:30 10/22/16 02:00 (Dulcolax Supp) 10 mg DAILY PRN RECTAL 09/26/16 15:30 12/08/16 09:17 (Tylenol - Codeine 120-12 Liq) 5 ml Q4H PRN G-TUBE 12/27/16 15:30 03/11/17 10:44 (Imodium Liq) 2 mg Q6H PRN PEG 12/27/16 15:30 01/24/17 20:05 (Milk Of Magnesia Liq) 30 ml DAILY PRN PEG 12/27/16 15:30 02/11/17 08:46 (Milk Of Magnesia Liq) 30 ml DAILY PEG 12/28/16 09:00 Future Hold 01/19/17 08:44 (Senna Liq) 8.8 mg DAILY@1600 PEG 12/27/16 16:00 03/10/17 17:41 (Lactulose Liq) 30 ml DAILY PRN PEG 12/27/16 15:30 (Cardizem) 30 mg QID PEG 01/09/17 18:00 03/11/17 07:43 (D50w (Vial) Inj) 50 ml UNSCH PRN IV 01/09/17 16:00 (Glucagon Inj) 1 mg UNSCH PRN OTHER 01/09/17 16:00 (Prevacid Odt) 30 mg BID NG 01/26/17 21:00 03/11/17 07:43 (Ashish Powder) 1 pack BID G-TUBE 02/10/17 21:00 03/11/17 08:14 (Ferrous Sulfate Liq) 300 mg DAILY PO 02/14/17 09:00 03/11/17 09:12 (Vitamin C) 1,000 mg DAILY PO 02/14/17 09:00 03/11/17 07:43 (Bacitracin Oint Packet) 0.9 gm DAILY TOPICAL 02/25/17 09:00 03/11/17 08:14 (Levsin) 0.25 mg Q8H G-TUBE 03/09/17 22:00 04/08/17 21:59 03/11/17 12:54 Pharmacy Profile Note 0 ml @ 0 mls/hr UNSCH OTHER 03/10/17 09:00 Vancomycin HCl 1250 mg/Sodium Chloride 262.5 ml @ 250 mls/hr Q12H IV 03/10/17 11:00 03/11/17 10:44 Miscellaneous Information SPECIFIC LAB TO BE ELISA... ONCE ONCE .XX 03/11/17 22:45 03/11/17 22:46 Assessment and Plan Assessment and Plan UROLOGIC IMPRESSION: #1 Resolved Hematuria #2 Non-operable locally advanced bladder mass / small cell carcinoma RECOMMENDATIONS: #1 Con't Arevalo to gravity #2 Agree with Palliative care / Oncology recs #3 Discussed care with multiple family members in person and over phone #4 Urology input will be limited at this point Thomas Sewell MD Mar 11, 2017 14:10
--- NOTE | 2017-03-11 15:23 | HHI.PR ---
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 Patient seen and examined today. As pt is non-verbal he could not participate in a meaningful/significant manner. Per RN (Irina) no acute issues overnight or since start of shift. Family requested pt's recent cancer diagnosis not be "brought up to him." Objective Vitals Vital Signs Date Time Temp Pulse Resp B/P (MAP) Pulse Ox O2 Delivery O2 Flow Rate FiO2 03/11/17 11:41 98.6 106 20 103/64 (77) 96 03/11/17 08:36 98 T-piece 6.00 28 03/11/17 08:00 Trach Collar T-Piece 03/11/17 08:00 97.9 101 20 115/70 (85) 100 03/11/17 00:00 97.2 104 20 111/66 (81) 99 03/10/17 20:00 98.1 99 20 117/70 (86) 100 03/10/17 19:57 100 T-piece 5.00 28 03/10/17 19:57 100 T-piece 5.00 28 03/10/17 16:00 97.0 95 16 109/63 (78) 100 I/O 03/10/17 03/10/17 03/10/17 03/11/17 03/11/17 03/11/17 07:00 15:00 23:00 07:00 15:00 23:00 Intake Total 490 ml 200 ml 0 ml 867 ml Output Total 350 ml 1200 ml 1600 ml Balance 140 ml 200 ml -1200 ml -733 ml Intake Oral 0 ml 0 ml IV Total 260 ml Tube Feeding 345 ml 427 ml Tube Irrigant 145 ml Other 200 ml 180 ml Output Urine Total 350 ml 1200 ml 1600 ml # Bowel Movements 0 2 Result Diagram: 03/10/17 1220 03/10/17 1220 Objective Remarks GENERAL: Pt encountered laying a bed, non-verbal, not in acute distress. . SKIN: Warm and dry. Tattoo noted on right forearm. HEAD: Normocephalic. EYES: Non-icteric without injection or drainage. NECK: Supple, trachea midline. T-tube in place. CARDIOVASCULAR: Regular rate and rhythm without murmurs, gallops, or rubs. RESPIRATORY: Breath sounds equal bilaterally. No accessory muscle use. Trach tube in place. Bedside monitor indicated oxygen saturation was 99%. GASTROINTESTINAL: Abdomen soft, non-tender, nondistended. GJ tube noted, gauze present in area around insertion was dry and seemingly without leakage. MUSCULOSKELETAL: No cyanosis, or edema. Bilateral lower leg SCD's present. PSYCHIATRIC: Pt non-verbal, he appeared calm and not in distress. He did follow limited commands: turn head, look at examiner, stick out tongue. Procedures 07/22/2016 Wide excision of sacral skin wound, biopsy of the cavity lining and debridement. PEG removal and Gj tube placement 07/29/16 VAC changes- M-W-F 10/23/16, 11/18, 12/31- GJ tube replacement 01/02/16 PEG placement 01/02/16 tracheostomy 02/25/17 PEG replacement 03/03/17 Cystoscopy and palliative transurethral resection of bladder tumor greater than 5cm originating from the right bladder wall Medications and IVs Current Medications Medications (Trade) Dose Ordered Sig/Junior Route Start Time Stop Time Status Last Admin (NS Flush) 2 ml UNSCH PRN IVF 12/21/15 06:00 09/28/16 21:18 (Keppra Liq) 500 mg Q12HR TUBE 12/27/15 21:00 03/11/17 07:43 (Tylenol 650 Mg/ 20 ml Liq) 650 mg Q6H PRN TUBE 12/30/15 15:15 01/18/17 21:34 (Mycostatin Powder) 1 applic Q12HR TOPICAL 01/08/16 21:00 03/11/17 08:15 (Pill Splitter) 1 ea UNSCH PRN OTHER 01/14/16 08:30 (Acetic Acid 0.25% Irr Btl) 10 ml Q8HR IRRIGATION 02/05/16 16:00 03/11/17 12:56 (Paxil Liq) 20 mg DAILY@1900 PEG 03/12/16 19:00 Future hold 03/10/17 17:42 (Zofran Inj) 4 mg Q6HR PRN IV PUSH 04/14/16 19:45 08/10/16 10:16 (Xopenex Neb) 0.63 mg Q4HR NEB PRN NEB 05/05/16 12:00 03/06/17 10:45 (Aspirin) 325 mg DAILY TUBE 11/7/16 11:40 Future Hold 02/25/17 08:28 (Heparin Inj) 5,000 units Q8HR SQ 06/11/16 14:00 Future hold 03/11/17 12:54 (Baciguent Oint) 1 applic BID TOP 07/20/16 10:00 03/11/17 08:14 ([place]) 1 spray BID NASAL 08/01/16 21:00 03/11/17 08:14 (Tears Naturale Opth Soln) 1 drop BID EACH EYE 09/05/16 21:00 03/11/17 08:13 (Morphine Inj) 1 mg Q24H PRN IV PUSH 09/17/16 14:30 10/22/16 02:00 (Dulcolax Supp) 10 mg DAILY PRN RECTAL 09/26/16 15:30 12/08/16 09:17 (Tylenol - Codeine 120-12 Liq) 5 ml Q4H PRN G-TUBE 12/27/16 15:30 03/11/17 10:44 (Imodium Liq) 2 mg Q6H PRN PEG 12/27/16 15:30 01/24/17 20:05 (Milk Of Magnesia Liq) 30 ml DAILY PRN PEG 12/27/16 15:30 02/11/17 08:46 (Milk Of Magnesia Liq) 30 ml DAILY PEG 12/28/16 09:00 Future Hold 01/19/17 08:44 (Senna Liq) 8.8 mg DAILY@1600 PEG 12/27/16 16:00 03/10/17 17:41 (Lactulose Liq) 30 ml DAILY PRN PEG 12/27/16 15:30 (Cardizem) 30 mg QID PEG 01/09/17 18:00 03/11/17 07:43 (D50w (Vial) Inj) 50 ml UNSCH PRN IV 01/09/17 16:00 (Glucagon Inj) 1 mg UNSCH PRN OTHER 01/09/17 16:00 (Prevacid Odt) 30 mg BID NG 01/26/17 21:00 03/11/17 07:43 (Ashish Powder) 1 pack BID G-TUBE 02/10/17 21:00 03/11/17 08:14 (Ferrous Sulfate Liq) 300 mg DAILY PO 02/14/17 09:00 03/11/17 09:12 (Vitamin C) 1,000 mg DAILY PO 02/14/17 09:00 03/11/17 07:43 (Bacitracin Oint Packet) 0.9 gm DAILY TOPICAL 02/25/17 09:00 03/11/17 08:14 (Levsin) 0.25 mg Q8H G-TUBE 03/09/17 22:00 04/08/17 21:59 03/11/17 12:54 Pharmacy Profile Note 0 ml @ 0 mls/hr UNSCH OTHER 03/10/17 09:00 Vancomycin HCl 1250 mg/Sodium Chloride 262.5 ml @ 250 mls/hr Q12H IV 03/10/17 11:00 03/11/17 10:44 Miscellaneous Information SPECIFIC LAB TO BE ELISA... ONCE ONCE .XX 03/11/17 22:45 03/11/17 22:46 Date of Insertion: Feb 10, 2017 A/P Problem List: (1) CVA (cerebral vascular accident) ICD Code: I63.9 - Cerebral infarction, unspecified Status: Acute (2) A-fib ICD Code: I48.91 - Unspecified atrial fibrillation Status: Chronic (3) DM (diabetes mellitus) ICD Code: E11.9 - Type 2 diabetes mellitus without complications Status: Chronic Assessment and Plan Mr. Flores is 61 year-old male with past medical history of paroxysmal A. fib, hypertension, stage III non-Hodgkin's lymphoma status post chemotherapy who came into the hospital with altered mental status. Chest CT is negative for primary lesion. Oncology following. Possible XRT for bladder cancer. Pt is not a candidate for chemotherapy. Skin abscess (abdomen) improved; no purulent drainage present. Gross Hematuria - Lopez change following cystoscopy procedure 03/03/17. - Hematuria resolved x 48hrs. Heparin and ASA resumed. No resumption of hematuria noted. - Urology Consult appreciated. Recommends flushing Lopez catheter. - CT of the abdomen showed bladder mass right posteriorly with apparent extravesical extension and clot formation. - Urology spoke with family member, daughter, states that he's not recommending biopsy of the bladder mass. However daughter insisted on biopsy. Patient s/p cystoscopy and palliative transurethral resection of bladder tumor greater than 5 cm originating from right bladder wall performed by Dr. Sewell . 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 Dr. Pruitt discussed at length with sister and daughter at the bedside who have requested consultations from Urology and Oncology to consider all the options available. Oncology consult placed. Requested nursing staff reach out to Dr. Springer to discuss results/options. - Oncology following - appreciate their assistance. Family requesting aggressive therapy. Difficult patient to treat with chemotherapy. Dr. Whyte who is familiar with the patient and treated his lymphoma in the past to see on Friday. - Discussed with sister palliative care consultation and she is agreeable. Order placed for palliative care consult. - H&H dropped to 7.4/24.3. Improved status post transfusion. Hemoglobin appears stable. - Continue to flush lopez catheter PRN. Abdominal wound/ lesion - Below the GJ incision site appears to be worsening as well as increased purulence around PEG site. Started on Vancomycin. Pharmacy to dose. Continue to monitor. May need bedside I&D. - Wound Care consulted and recommends leaving open to air, imaging soft tissue ultrasound. - Continue Bacitracin - Ultrasound soft tissue surrounding area for possible fluid collection that would need I & D. - Soft tissue ultrasound showed 1. Just inferior to that the tube in the left abdomen, there is a superficial 3.8 x 2.9 0.9 cm complex fluid collection in the subcutaneous tissue. 2. Findings are nonspecific. This could represent a small seroma or abscess. Would consider CT scan of the abdomen with contrast for further evaluation and determine if there is an intraperitoneal extension. - CT of the abdomen showed 1. Abdominal aortic aneurysm. 2. Bladder mass is noted on the right posteriorly with apparent extravesical extension and clot formation. 3. Left renal cyst. 4. Left lower lobe atelectasis. 5. Large sacral decubitus ulcer with bony disruption and sclerosis of the sacrum mid to left lateral portion in the region of S3 and inferiorly which would suggest chronic osteomyelitis in the appropriate clinical setting. - No intraperitoneal extension noted for the wound. 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 Intermittently tracks with eyes. - Continue Keppra 500mg BID for seizure prophylaxis. Keppra level 17.8. - PT/OT signed off as patient is unable to participate. - On Paxil 20 by mouth daily for depression. - On acetaminophen with codeine for pain scale of 2-10. - Morphine 1 mg every 24 hours when necessary for dressing change Chronic respiratory failure secondary to CVA - Status post tracheostomy. Continue pulmonary toilet and bronchodilators as needed. Continue trach care, suctioning. Increased secretions improved with scheduled Levsin. Decreased dosing of scheduled Levsin to q8h. Pulmonary toilet. Monitor. - Trach changed to size #6 XLT on 01/09 - Duo nebs every 4 hours while awake - Pulmonary currently following, appreciate assistance. - 01/09 CTA chest: No PE, bilateral lower lobe infiltrates. 4 mm right upper lobe/5 mm right middle lobe nodule. - CXR 02/22/17 reveals minimal atelectasis - CXR 03/07/17 showing mild streaky opacity at the lung bases with no focal consolidation or effusion. Right hallux ingrown toenail, paronychia- medial aspect 02/23/17 new area of paronychia right hallux ingrown toe nail lateral aspect - Machine Operator Farm[employer] has seen patient. I & D with partial nail avulsion performed at bedside 02/06/17. - Seen by podiatry. Plan is to aggressively cut the nail back. - Resolved Atrial fibrillation, controlled but more tachycardic Hypertension Dyslipidemia - Continue rate control with Cardizem and metoprolol. Increased tachycardia may be due to abdominal infection. Monitor. - Echocardiogram in November 2015 shows preserved ejection fraction. Coumadin discontinued secondary to bleeding. - Continue aspirin History of non-Hodgkin's lymphoma - Status post brain biopsy on December 13 by neurosurgery. Pathology consistent with acute infarct without evidence of lymphoma. Oncology has signed off. Diabetes mellitus Type 2 - Hemoglobin A1c is 5.5. - Fingersticks have been stable and were DC'd 02/01/17 Decubitus ulcer stage IV - Continue wound care, twice-daily dressing changes. Wound care recommendations last updated 12/12/16. Continue pressure relief measures including turning and positioning. Patient's family has declined a diverting colostomy. Previous Wound culture growing Klebsiella and Enterococcus Faecalis. Previously on Augmentin. Status post wide excision of sacral skin and biopsy of the cavity lining with debridement on 07/22/16. - Wound care last saw patient on 01/17/17, no new recommendations continue packing with Betadine moistened rolled Janis and covered with ABD pad and paper tape to secure. - Continue to monitor. Continue pressure-relief. - Morphine 1 mg every 24 hours when necessary for dressing change Protein calorie malnutrition Gastroesophageal reflux disease Gastric ulcer, reflux esophagitis Diarrhea, negative for C. difficile. Improved - EGD on 07/30/16 showed gastric ulcers. - On Prevacid 30 mg Q12, on tube feeds(Jevity 1.5 at 55 ml/hr) - Continue bowel regimen with hold parameters, Lactinex and Imodium. - G/J tube clogged, IR consulted to evaluate. Replaced on 02/25/17 - Reiterated proper G/J tube care and flush procedures. Discuss and explained with family. UTI pseudomonas aeruginosa Recurrent - Previous Repeat Ucx 08/28/16 negative. - 02/22/17 UA consistent with UTI - cultures pseudomonas, currently on Rocephin will change to cefepime since last culture was also Pseudomonas and was sensitive to cefepime. - Sensitivities came back, was switched over to Zosyn as cultures are not sensitive to cefepime. Completed. Klebsiella/Pseudomonas/staph aureus HCAP PSAE UTI - S/p Cefepime. Monitor for signs of infections. - strep pneumonia and Legionella urinary Ag is negative - C-diff PCR negative on 01/13 - 01/09 BC : Staph Epi, Urine cx: Pseudomonas, Sputum cx: Pseudomonas, kleb, Staph. - Patient was pancultured on 01/19 (Blood, sputum, urine) NGTD in urine and blood. Sputum + for pseudomonas. Hyponatremia - mild - IVF bolus - repeat labs ordered to monitor. DVT prophylaxis: SCDs. Heparin 5,000 units sq Q8hr Discussed with nursing staff, mother and family members (at bedside) and Dr. Pruitt Discharge Planning Pt being evaluated by [facility]. Discussed with CM about placement. CM stated discussions ongoing between [facility] and [facility] for possible transfer. Problem Qualifiers (1) CVA (cerebral vascular accident): (2) DM (diabetes mellitus): Javier Harris Jr. Mar 11, 2017 15:23
[2017-03-11] MEDS: SENNOSIDES SYRUP 8.8 MG/5 ML CUP PEG SCH (15:41)
[2017-03-11 16:00] VITALS: BP 118/67; PULSE 103; RESP 18; TEMP 97.3; O2SAT 98
[2017-03-11] MEDS: PARoxetine HCL SUSP 20 MG/10 ML UDC PEG SCH (18:01)
--- NOTE | 2017-03-11 18:38 | HHI.PR ---
Subjective Remarks ass OPENS EYES NO DISTRESS o2 sat 95% cystoscopy and biopsy small cell CA Objective Vital Signs Date Time Temp Pulse Resp B/P (MAP) Pulse Ox O2 Delivery O2 Flow Rate FiO2 03/11/17 16:00 97.3 103 18 118/67 (84) 98 03/11/17 11:41 98.6 106 20 103/64 (77) 96 03/11/17 08:36 98 T-piece 6.00 28 03/11/17 08:00 Trach Collar T-Piece 03/11/17 08:00 97.9 101 20 115/70 (85) 100 03/11/17 00:00 97.2 104 20 111/66 (81) 99 03/10/17 20:00 98.1 99 20 117/70 (86) 100 03/10/17 19:57 100 T-piece 5.00 28 03/10/17 19:57 100 T-piece 5.00 28 I/O 03/10/17 03/10/17 03/10/17 03/11/17 03/11/17 03/11/17 07:00 15:00 23:00 07:00 15:00 23:00 Intake Total 490 ml 200 ml 0 ml 867 ml Output Total 350 ml 1200 ml 1600 ml 1150 ml Balance 140 ml 200 ml -1200 ml -733 ml -1150 ml Intake Oral 0 ml 0 ml IV Total 260 ml Tube Feeding 345 ml 427 ml Tube Irrigant 145 ml Other 200 ml 180 ml Output Urine Total 350 ml 1200 ml 1600 ml 1150 ml # Bowel Movements 0 2 2 Result Diagram: 03/10/17 1220 03/10/17 1220 Procedures 01/02/16 PEG placement 01/02/16 tracheostomy 07/22/2016 Wide excision of sacral skin wound, biopsy of the cavity lining and debridement. PEG tube replacement 07/29/16 Objective Remarks GENERAL: SKIN: Warm and dry. HEAD: Atraumatic. Normocephalic. EYES: Pupils equal and round. No scleral icterus. No injection or drainage. ENT: No nasal bleeding or discharge. Mucous membranes pink and moist. NECK: Trachea midline. No JVD. CARDIOVASCULAR: Regular rate and rhythm. RESPIRATORY: No accessory muscle use. Clear to auscultation. Breath sounds equal bilaterally. GASTROINTESTINAL: Abdomen soft, non-tender, nondistended. Hepatic and splenic margins not palpable. MUSCULOSKELETAL: Extremities without clubbing, cyanosis, or edema. No obvious deformities. NEUROLOGICAL: Awake and alert. No obvious cranial nerve deficits. Motor grossly within normal limits. Five out of 5 muscle strength in the arms and legs. Normal speech. PSYCHIATRIC: Appropriate mood and affect; insight and judgment normal. Laboratory Tests Test 01/05/17 01/06/17 08:35 08:41 Red Blood Count 4.43 MIL/MM3 (4.50-5.90) Hemoglobin 9.9 GM/DL (13.0-17.0) Hematocrit 32.0 % (39.0-51.0) Mean Corpuscular Volume 72.1 FL (80.0-100.0) Mean Corpuscular Hemoglobin 22.3 PG (27.0-34.0) Mean Corpuscular Hemoglobin 30.9 % Concent (32.0-36.0) Red Cell Distribution Width 19.9 % (11.6-17.2) Sodium Level 134 MEQ/L 133 MEQ/L (136-145) (136-145) Random Glucose 136 MG/DL 132 MG/DL (74-106) (74-106) Creatinine 0.59 MG/DL (0.60-1.30) GENERAL: SKIN: Warm and dry. HEAD: Atraumatic. Normocephalic. EYES: Pupils equal and round. No scleral icterus. No injection or drainage. ENT: No nasal bleeding or discharge. Mucous membranes pink and moist. NECK: Trachea midline. No JVD. TRACH. [place] CARDIOVASCULAR: Regular rate and rhythm. RESPIRATORY: No accessory muscle use. Clear to auscultation. Breath sounds equal bilaterally. GASTROINTESTINAL: Abdomen soft, non-tender, nondistended. Hepatic and splenic margins not palpable. MUSCULOSKELETAL: Extremities without clubbing, cyanosis, or edema. No obvious deformities. NEUROLOGICAL: Awake and alert. No obvious cranial nerve deficits. Motor grossly within normal limits. Five out of 5 muscle strength in the arms and legs. Normal speech. PSYCHIATRIC: Appropriate mood and affect; insight and judgment normal. 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 TOILET RT CONSULT PENDING Brandon Taylor MD Mar 11, 2017 18:38
--- NOTE | 2017-03-11 19:00 | MB ---
cc: CASEY CRUZ MD, RONALD J. M.D. SORATHIA, ABDUL J. M.D. DATE OF CONSULTATION 03/11/2017 BRIEF HISTORY This is a gentleman with a complicated history. This gentleman has had a prolonged hospitalization. He unfortunately was admitted to the hospital with mental status changes and became obtunded and lethargic. He was intubated in the emergency room and imaging revealed a stroke and unfortunately he has been essentially unresponsive since that time. He was initially on a ventilator and now is just undergoing respiratory support. He is nonverbal but his family reports that he responds appropriately and appears to have some understanding and happiness. This gentleman was also noted to have a non-Hodgkin's lymphoma diagnosed in January of 2016 when he presented with abdominal pain and constitutional symptoms. He had retroperitoneal, mesenteric and iliac lymphadenopathy as well as axillary adenopathy without bone marrow involvement. This is stage III disease and he received six cycles of CHOP Rituxan being completed May of 2015. Apparently restaging has been negative. While in the hospital this gentleman was found to have gross hematuria. A CT scan of the abdomen revealed a 5.4 x 3.5 cm mass extending posteriorly and superiorly with surrounding soft tissue stranding and perivesical fat. He has undergone a cystoscopy with biopsy revealing a small cell carcinoma. This gentleman has been reviewed by medical oncology and was not felt to be a candidate for systemic therapy. We are being asked to see him for consideration of some form of radiation treatment. Presently the patient is unresponsive. The mother is in the room and she speaks little Hungarian. She had me call to the patient's daughter, Xiomara at [phone] and I was able to speak with her and Xiomara's mother on the phone today about this gentleman's care. PAST MEDICAL AND SURGICAL HISTORY Includes: 1. Small cell cancer of the bladder. 2. Non-Hodgkin's lymphoma. 3. Respiratory failure associated with stroke. 4. Malnutrition with PEG tube placement. 5. Decubitus ulcers with multiple documented infections. 6. Previous tracheostomy. FAMILY HISTORY Noncontributory at this point. SOCIAL HISTORY Noncontributory at this point. MEDICATIONS As documented in the EMR. PHYSICAL EXAMINATION GENERAL: This gentleman was not alert, he appeared to be resting comfortably. CHEST: His chest was clear. CARDIOVASCULAR: Heart sounds are normal. ABDOMEN: Soft. EXTREMITIES: There is no edema. There are no other findings. IMAGING Review of imaging, this gentleman underwent a recent CT scan of his chest which showed para-aortic soft tissue along the proximal descending thoracic aorta not previously seen. It was not fully understood as it is somewhat atypical but could represent further disease. CT scan of the abdomen and pelvis revealed abdominal aortic aneurysm, a bladder mass noted on the right and apparent extra vesicle extension and clot formation, left renal cyst, lower lobe atelectasis, a large sacral decubitus ulcer with bone destruction and sclerosis of the sacrum mid to the left lateral portion in the region of S3 and inferiorly suggesting chronic osteomyelitis. I have had a discussion with the family on the telephone today. They are aware that his disease is incurable and that inevitably he will have progression of disease. The is concerned and would like us to consider radiation treatment to help prevent pelvic complications over the course of his remaining lifetime. His daughter understands that this may just prolong his life needlessly and may not necessarily prevent symptomatic complications. She tells me that she is the person who is the legal guardian to sign for him, but she does want to discuss this with her brother and the rest of the family so they can make a joint decision. If we were to treat this gentleman I would consider treating him with a series of 10 fractions of radiation treatment to palliate this over the short-term. I have explained to them this would be a short-term benefit. I have explained to them that this is a disease metastasizes and no matter what control we get in the pelvis we anticipate he will run into other problems on top of his multiple other health problems. Additionally radiation treatment would very likely cause diarrhea which can complicate his decubiti issues and nursing management. This is a very difficult issue. I do not think it would be unreasonable for this patient be placed on Hospice but I will respect the wishes of the family as well. They have promised to contact me and I have given them my office number and they anticipate contacting me in the next 24-48 hours. MD LARRY Spencer/ROULA /5:29 PM /6:35 PM
[2017-03-11 20:00] VITALS: BP 114/71; PULSE 101; RESP 20; TEMP 97.8; O2SAT 100
[2017-03-12] VITALS (7 sets, daily range): BP systolic 111–125; BP diastolic 64–77; PULSE 92–103; RESP 18–20; TEMP 97.2–98.8; O2SAT 96–100
[2017-03-12] MEDS: HYOSCYAMINE 0.125 MG TAB G-TUBE SCH ×3 (06:00→22:00)
[2017-03-12] MEDS: ACETIC ACID 0.25% SOLN 1000 ML IRR BTL IRRIGATION SCH ×3 (06:01→22:00)
[2017-03-12] MEDS: HEPARIN SODIUM - SQ 10,000 UNITS/ML VIAL SQ SCH ×3 (06:01→22:00)
--- NOTE | 2017-03-12 08:25 | HHI.PR ---
Subjective Remarks ass OPENS EYES NO DISTRESS o2 sat 95% cystoscopy and biopsy small cell CA Objective Vital Signs Date Time Temp Pulse Resp B/P (MAP) Pulse Ox O2 Delivery O2 Flow Rate FiO2 03/12/17 04:00 97.4 100 18 123/75 (91) 99 03/12/17 00:54 98.8 102 20 123/68 (86) 96 03/11/17 21:30 Trach Collar 03/11/17 20:00 97.8 101 20 114/71 (85) 100 03/11/17 16:00 97.3 103 18 118/67 (84) 98 03/11/17 11:41 98.6 106 20 103/64 (77) 96 03/11/17 08:36 98 T-piece 6.00 28 I/O 03/11/17 03/11/17 03/11/17 03/12/17 03/12/17 03/12/17 06:59 14:59 22:59 06:59 14:59 22:59 Intake Total 867 ml 922 ml Output Total 1600 ml 1150 ml 1500 ml Balance -733 ml -1150 ml -578 ml IV Total 260 ml Tube Feeding 427 ml 562 ml Other 180 ml 360 ml Output Urine Total 1600 ml 1150 ml 1500 ml # Bowel Movements 2 Result Diagram: 03/10/17 1220 03/12/17 0443 Procedures 01/02/16 PEG placement 01/02/16 tracheostomy 07/22/2016 Wide excision of sacral skin wound, biopsy of the cavity lining and debridement. PEG tube replacement 07/29/16 Objective Remarks GENERAL: SKIN: Warm and dry. HEAD: Atraumatic. Normocephalic. EYES: Pupils equal and round. No scleral icterus. No injection or drainage. ENT: No nasal bleeding or discharge. Mucous membranes pink and moist. NECK: Trachea midline. No JVD. CARDIOVASCULAR: Regular rate and rhythm. RESPIRATORY: No accessory muscle use. Clear to auscultation. Breath sounds equal bilaterally. GASTROINTESTINAL: Abdomen soft, non-tender, nondistended. Hepatic and splenic margins not palpable. MUSCULOSKELETAL: Extremities without clubbing, cyanosis, or edema. No obvious deformities. NEUROLOGICAL: Awake and alert. No obvious cranial nerve deficits. Motor grossly within normal limits. Five out of 5 muscle strength in the arms and legs. Normal speech. PSYCHIATRIC: Appropriate mood and affect; insight and judgment normal. Laboratory Tests Test 01/05/17 01/06/17 08:35 08:41 Red Blood Count 4.43 MIL/MM3 (4.50-5.90) Hemoglobin 9.9 GM/DL (13.0-17.0) Hematocrit 32.0 % (39.0-51.0) Mean Corpuscular Volume 72.1 FL (80.0-100.0) Mean Corpuscular Hemoglobin 22.3 PG (27.0-34.0) Mean Corpuscular Hemoglobin 30.9 % Concent (32.0-36.0) Red Cell Distribution Width 19.9 % (11.6-17.2) Sodium Level 134 MEQ/L 133 MEQ/L (136-145) (136-145) Random Glucose 136 MG/DL 132 MG/DL (74-106) (74-106) Creatinine 0.59 MG/DL (0.60-1.30) GENERAL: SKIN: Warm and dry. HEAD: Atraumatic. Normocephalic. EYES: Pupils equal and round. No scleral icterus. No injection or drainage. ENT: No nasal bleeding or discharge. Mucous membranes pink and moist. NECK: Trachea midline. No JVD. TRACH. [place] CARDIOVASCULAR: Regular rate and rhythm. RESPIRATORY: No accessory muscle use. Clear to auscultation. Breath sounds equal bilaterally. GASTROINTESTINAL: Abdomen soft, non-tender, nondistended. Hepatic and splenic margins not palpable. MUSCULOSKELETAL: Extremities without clubbing, cyanosis, or edema. No obvious deformities. NEUROLOGICAL: Awake and alert. No obvious cranial nerve deficits. Motor grossly within normal limits. Five out of 5 muscle strength in the arms and legs. Normal speech. PSYCHIATRIC: Appropriate mood and affect; insight and judgment normal. 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 TOILET RT CONSULT PENDING Brandon Taylor MD Mar 12, 2017 08:25
[2017-03-12] MEDS: NYSTATIN 100,000 U/GM PWD 15 GM BTL TOPICAL SCH ×2 (09:00→21:00)
[2017-03-12] MEDS: JUVEN POWDER 1 PACK G-TUBE SCH ×2 (09:00→21:00)
[2017-03-12] MEDS: ARTIFICIAL TEARS OPTH SOLN 15 ML BTL EACH EYE SCH ×2 (09:00→22:02)
[2017-03-12] MEDS: SODIUM CHLORIDE 0.65% NASAL SPRAY 45 ML BTL NASAL SCH ×2 (09:00→21:00)
[2017-03-12] MEDS: BACITRACIN OINT 0.9 GM PKT TOPICAL SCH (09:00)
[2017-03-12] MEDS: BACITRACIN TOP OINT 15 GM TUBE TOP SCH ×2 (09:00→22:02)
[2017-03-12] MEDS: DILTIAZEM HCL 30 MG TAB PEG SCH ×5 (09:14→22:00)
[2017-03-12] MEDS: levETIRAcetam 500 MG/5 ML UDC TUBE SCH ×2 (09:15→22:01)
[2017-03-12] MEDS: LANSOPRAZOLE SOLUTAB 30 MG TAB NG SCH ×2 (09:15→22:00)
[2017-03-12] MEDS: FERROUS SULFATE 300 MG /5ML UDC PO SCH (09:15)
[2017-03-12] MEDS: ASCORBIC ACID 500 MG TAB PO SCH (09:15)
--- NOTE | 2017-03-12 10:53 | HHI.HCPN ---
Reason for visit a. To assist with evaluation and management of symptoms including: dyspnea, encephalopathy, depression b. To assist medical decision maker(s) with: better understanding of current medical conditions; weighing benefits/burdens of medical treatment options; making medical treatment decisions. Subjective/Interval History Palliative care RECONSULTED 03/10/17 on this pt, pt well known to Palliative Care. Pt has remained stable in med surg unit. Briefly in ICU last month for dyspnea/ resp distress, on mech vent for several days. Has remained stable on 29% fio2 to trach since then. Palliative care reconsulted at this time due to no findings of 5 x 3.5 cm bladder mass. Status post cystoscopy, biopsy. Pathology positive small cell carcinoma. Oncology has evaluated, reports would be difficult to provide chemotherapy to this patient due to multiple chronic medical issues, and chronically debilitated state. Oncology Recommends further follow-up/consultation with Dr. Whyte patient known oncologist from prior lymphoma (11/2015), as well as CT chest, and palliative care consult to clarify goals of treatment. Patient has remained stable. S/p CT chest per oncology r/o metastatic disease, CT chest negative. S/p radiation oncology evaluation yesterday. Dr Lincoln notes that a brief course of palliative radiation could be considered, but would pose risk of additional pelvic complications, and would still expect disease process to continue. notes discussion w pt daughter, recommends hospice , though leaves the decision to the children. Patient seen in room, mother at bedside. She requests I do not mention cancer findings in front of pt. To exam patient with eyes open, tracks examiner. Weak movement left upper extremity during my exam- reflexive? No apparent distress. Mother tells me he has had discomfort in his through from coughing, and that nursing had to suction secretions from his trach. He appears to be breathing comfortably during my exam. Lungs w some scattered rhonchi. following exam call to dtr Leanne who is primary contact for decision making, VM left. Discussed at length w medical attending TRU Harris. Of note per [place] Statutes, medical proxy decision making would fall to the majority of adult children, as Mr. Flores is not legally . His ex Leanne and children ALL participate in decision making, with dtr Leanne and ex Leanne serving as primary points of contact. History brought forward from initial consult by Rita MOCTEZUMA on 01/10/16: This 59-year-old patient was admitted on 12/21/15 via the ED for facial drooping. ED physician notes that patient and patients are poor historians, EMS reported the could not provide good timelines to them. Patient also reported headache, difficulty ambulating. He had known history of recent findings of mass in the brain. During ED course had deterioration of clinical condition and able to protect his airway, unable to follow commands patient was intubated and CT brain obtained. He was admitted for further evaluation and management to the ICU. Fsr was consulted and following patient. Pathology on recent brain biopsy (12/13) still pending. CLINICAL/HOSPITAL COURSE: * CT brain= no focal or acute intracranial hemorrhage. New area decreased density in left occipital lobe suggestive of recent nonhemorrhagic infarct, decreased density in previously noted right occipital lobe has increased in size * Brain MRI = new area of restricted diffusion within left occipital lobe suggesting acute infarct. Interval enlargement of the area of restricted diffusion within right occipital lobe suggesting probable extension of right occipital and started on. Underlying enhancement of right occipital lobe is slightly worse than the previous exam and nonspecific. Biopsy has been performed and results are pending. Tiny focal area of restricted diffusion within right cerebellar hemisphere consistent with probable acute/subacute lacunar infarct. Signal abnormality in the SWI sequence within the right occipital lobe suggesting some hemorrhage in biopsy bed. No midline shift or extra-axial fluid collections. * CXR= no acute cardiopulmonary disease * -Neurology consulted, ordered MRA to look for vertebrobasilar stenosis, echo done last admission notes normal EF with normal valves and normal left atrial size. EEG also ordered. MR venogram ordered. EEG= abnormal study consistent with her encephalopathy. MRV indicated basilar occlusion; neurology notes discussion with family regarding chemical code only, also notes discussion regarding risks associated with the anticoagulates, was discussed with radiologist/INR recommended not helpful to extract basilar clot as this could result in patient's . It was felt the colin was infarcted. Further neurology notes "he could be locked in", is acting as if colin is infarcted. * Oncology known to patient also consulted for non-Hodgkin's lymphoma: Dr Whyte documents that there was no evidence of residual or recurrent disease on CT scans of chest, abdomen, pelvis done in October and November of this year. Pathology was still pending, had been sent to [facility] for second opinion. No acute oncology interventions recommended at that time, will follow. * 12/23 - 12/25 febrile. CPAP trials. Remains on vent off of sedation. Withdrawing to pain. Repeat brain MRI= evolving brainstem stroke. Neurology notes extensive discussion with family, notes discussion the patient is locked in but fully aware, family would like to see help patient does over the next 3 months. 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 Biopsy brain lesion appears consistent with acute infarct no lymphoma. Family desires ongoing aggressive measures, will proceed with tracheostomy. Sputum culture positive sensitive Klebsiella. * 01/01 tracheostomy, PEG tube placement * 01/04 trach collar trials, alternating with T piece. Low-grade fever 100.5. CXR = mild bibasilar atelectasis. Neuro: Spontaneously opening eyes, looking up / down, directionally to commands. * 01/07 still "locked in " , transferred off ICU to regular floor. * 01/08 pulmonology consulted-not CXR clear no evidence of pulmonary infection. He may have some underlying COPD recommends continued aerosol treatments. Further notes long discussion with family at bedside regarding tracheostomy, long-term use of trach until patient able to protect his airway, no further recommendations. Palliative care consulted to assist with clarification of goals of treatment. Advance Directives Living Will: Never completed Health Care Surrogate: Never completed Objective Vital Signs Date Time Temp Pulse Resp B/P (MAP) Pulse Ox O2 Delivery O2 Flow Rate FiO2 03/12/17 08:53 100 T-piece 5.00 28 03/12/17 08:00 97.8 100 20 125/77 (93) 98 03/12/17 04:00 97.4 100 18 123/75 (91) 99 03/12/17 00:54 98.8 102 20 123/68 (86) 96 03/11/17 21:30 Trach Collar 03/11/17 20:00 97.8 101 20 114/71 (85) 100 03/11/17 16:00 97.3 103 18 118/67 (84) 98 03/11/17 11:41 98.6 106 20 103/64 (77) 96 Intake & Output 03/12/17 03/12/17 06:59 18:59 Intake Total 922 ml Output Total 1500 ml Balance -578 ml Tube Feeding 562 ml Other 360 ml Output Urine Total 1500 ml Physical Exam CONSTITUTIONAL/GENERAL: This is a chronically ill, frail appearing patient, in no apparent distress TUBES/LINES/DRAINS: Arevalo catheter, PEG tube, tracheostomy, reported ongoing wound to sacrum though I did not visualize. Skin temperature appropriate. Not diaphoretic. CARDIOVASCULAR: Regular rate and rhythm without murmurs.Peripheral pulses symmetric. Trace peripheral edema to upper extremities. RESPIRATORY/CHEST: Tracheostomy midline, no symptoms of problems around site. Symmetric, unlabored respirations. T piece, 28% FiO2. Lung sounds with scattered coarse upper mo, clear lower. Breath sounds equal bilaterally. GASTROINTESTINAL: Abdomen soft, no apparent tenderness, nondistended. No palpable masses. Bowel sounds normoactive. tube feed infusing via PEG. Very slight erythema around PEG tube insertion. MUSCULOSKELETAL: Extremities without clubbing, cyanosis. Trace edema upper extremities, lower extremities. No joint effusion noted. No mottling or clubbing.+ Muscle atrophy to all 4 extremities. NEUROLOGICAL: Eyes open, tracks examiner left and right. Does not follow commands, moves left hand/forearm weakly. Otherwise no movement, no following commands. PSYCHIATRIC: Difficult to fully assess due to clinical condition. no evident anxiety . . Diagnostic Tests Laboratory Laboratory Tests Test 03/10/17 12:20 03/12/17 04:43 White Blood Count 5.2 TH/MM3 (4.0-11.0) Red Blood Count 3.48 MIL/MM3 (4.50-5.90) Hemoglobin 7.8 GM/DL (13.0-17.0) Hematocrit 25.3 % (39.0-51.0) Mean Corpuscular Volume 72.7 FL (80.0-100.0) Mean Corpuscular Hemoglobin 22.5 PG (27.0-34.0) Mean Corpuscular Hemoglobin Concent 31.0 % (32.0-36.0) Red Cell Distribution Width 20.3 % (11.6-17.2) Platelet Count 232 TH/MM3 (150-450) Mean Platelet Volume 8.7 FL (7.0-11.0) Neutrophils (%) (Auto) 72.1 % (16.0-70.0) Lymphocytes (%) (Auto) 19.2 % (9.0-44.0) Monocytes (%) (Auto) 5.1 % (0.0-8.0) Eosinophils (%) (Auto) 2.8 % (0.0-4.0) Basophils (%) (Auto) 0.8 % (0.0-2.0) Neutrophils # (Auto) 3.8 TH/MM3 (1.8-7.7) Lymphocytes # (Auto) 1.0 TH/MM3 (1.0-4.8) Monocytes # (Auto) 0.3 TH/MM3 (0-0.9) Eosinophils # (Auto) 0.1 TH/MM3 (0-0.4) Basophils # (Auto) 0.0 TH/MM3 (0-0.2) CBC Comment DIFF FINAL Differential Comment Blood Urea Nitrogen 19 MG/DL (7-18) Creatinine 0.90 MG/DL (0.60-1.30) 1.06 MG/DL (0.60-1.30) Random Glucose 163 MG/DL (74-106) Calcium Level 8.6 MG/DL (8.5-10.1) Magnesium Level 2.1 MG/DL (1.5-2.5) Sodium Level 131 MEQ/L (136-145) Potassium Level 3.7 MEQ/L (3.5-5.1) Chloride Level 96 MEQ/L (98-107) Carbon Dioxide Level 24.9 MEQ/L (21.0-32.0) Anion Gap 10 MEQ/L (5-15) Estimat Glomerular Filtration Rate 86 ML/MIN (>89) 71 ML/MIN (>89) Result Diagram: 03/10/17 1220 03/12/17 0443 Imaging Last Impressions Chest CT 03/10/17 0000 Signed Impressions: Service Date/Time: Friday, March 10, 2017 21:00 - CONCLUSION: 1. Periaortic soft tissue along the proximal descending thoracic aorta not previously seen. This represents either lymphomatous involvement or adjacent consolidated airspace disease. 2. Mild bilateral airspace disease 3. No evidence of significant lymphadenopathy involving the mediastinum, hilar regions, axillas or supraclavicular lore chain. 4. Tracheostomy tube in place. Ernesto Kulkarni MD Chest X-Ray 03/07/17 0000 Signed Impressions: Service Date/Time: Tuesday, March 07, 2017 10:24 - CONCLUSION: Mild streaky opacity at the lung bases most are cystic of atelectasis. Gerald Mukherjee MD Abdomen/Pelvis CT 02/27/17 0000 Signed Impressions: Service Date/Time: February 02:24 - CONCLUSION: 1. Abdominal aortic aneurysm. 2. Bladder mass is noted on the right posteriorly with apparent extravesical extension and clot formation. 3. Left renal cyst. 4. Left lower lobe atelectasis. 5. Large sacral decubitus ulcer with bony destruction and sclerosis of the sacrum mid to left lateral portion in the region of S3 and inferiorly which would suggest chronic osteomyelitis in the appropriate clinical setting. Rajan Granados MD Soft Tissue Ultrasound 02/26/17 0000 Signed Impressions: Service Date/Time: Sunday, February 26, 2017 12:52 - CONCLUSION: 1. Just inferior to the G-tube in the left abdomen, there is a superficial 3.8 x 2.9 0.9 cm complex fluid collection in the subcutaneous tissues. 2. Findings are nonspecific. This could represent a small seroma or abscess. Would consider CT scan of the abdomen without contrast for further evaluation to determine if there is intraperitoneal extension. Bobby Gray MD Gastrostomy Tube Placement 02/25/17 0000 Signed Impressions: Service Date/Time: Saturday, February 25, 2017 14:19 - CONCLUSION: Uncomplicated exchange of gastroenteric feeding tube for gastrostomy tube as above. Positioning confirmed. The tube can be used immediately. Glen Zamora MD Tube Change 02/14/17 0000 Signed Impressions: Service Date/Time: Tuesday, February 14, 2017 00:00 - CONCLUSION: Uncomplicated gastrojejunostomy tube exchange as above. Scott Griffin MD Head CT 01/09/17 0000 Signed Impressions: Service Date/Time: December 17:43 - CONCLUSION: 1. No acute hemorrhage or mass effect. 2. 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 3. Atrophy. Gerald Mukherjee MD CT Angiography 01/09/17 0000 Signed Impressions: Service Date/Time: December 17:49 - CONCLUSION: 1. No evidence of pulmonary emboli. 2. Patchy consolidation in both posterior lower lobes right greater than left. This could represent pneumonia. 3. 2 small noncalcified pulmonary nodules which are nonspecific finding. Short-term CT followup is recommended beginning in 6 months with a noncontrast outpatient CT. Gerald Mukherjee MD Tube Check 12/04/16 0000 Signed Impressions: Service Date/Time: Sunday, December 04, 2016 17:58 - CONCLUSION: Uncomplicated tube injection as above. the tube is in good position and functions normally. Moises Ramírez MD Abdomen X-Ray 08/31/16 0000 Signed Impressions: Service Date/Time: Wednesday, August 31, 2016 16:36 - CONCLUSION: 1. No acute findings. Mild constipation. Durga Dotson MD Head Magnetic Resonance Angiography 03/05/16 0000 Signed Impressions: Service Date/Time: Saturday, March 05, 2016 09:26 - CONCLUSION: Persistent high-grade subtotal occlusive stenotic lesions in the distal right vertebral artery and proximal basilar artery with significant improvement in flow and recanalization following initial presentation of thrombosis. Stable interstitial circulation without significant stenosis. Ernesto Kulkarni MD Brain MRI 03/05/16 0000 Signed Impressions: Service Date/Time: Saturday, March 05, 2016 09:26 - CONCLUSION: Evolving brainstem and bilateral occipital lobe infarcts with evidence of subacute hemorrhagic products. There is decreasing restricted diffusion and increasing loss of volume characteristic of a subacute to chronic infarct. No evidence of acute infarct, acute hemorrhage mass or edema. Ernesto Kulkarni MD Neck Magnetic Resonance Angiography 12/22/15 1445 Signed Impressions: Service Date/Time: Tuesday, December 22, 2015 09:22 - CONCLUSION: Variant origin of the left vertebral artery from the aortic arch. No evidence of carotid stenosis. Glen Zamora MD Head/Brain Mag Res Venography 12/22/15 0000 Signed Impressions: Service Date/Time: Tuesday, December 22, 2015 09:22 - CONCLUSION: Normal MRV. Jonel Jones Jr., MD Procedures * 01/01 tracheostomy, PEG tube placement . 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; EEG indicates encephalopathy, neuro following patient felt to be in a "locked-in "state (2) Non-Hodgkin lymphoma Comment: -In remission status post chemotherapy completed May 2015 (3) Acute respiratory failure Comment: Pulmonology following, medical management (4) A-fib (5) Status post stereotactic brain biopsy (6) Brain lesion Comment: Status post biopsy November 2015; pathology consistent with acute infarct without evidence of lymphoma (7) DM (diabetes mellitus) Symptom Scale: (1) Dysphagia (2) Dyspnea (3) Encephalopathy (4) Malnutrition (5) Depression Pertinent Non-Medical Issues * Psychosocial:Mr. Flores is originally from [place]. He moved to the around 35 years ago, first to [place] and later to [place]. He is not legally but remains with his ex-, Leanne. They have been together for 31+ years and have three children together: Leanne, Gerald, and Ginny. Gerald is currently in [facility] for work. Mr. Flores has 2 brothers and 7 sisters. His father is of old age. His mother is alive and was living with the patient. Greatly enjoys his family. Retired. 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 * Spiritual: * Legal:Patient due to clinical condition is currently unable to participate in medical decision making. Not clear he will regain this ability. Family does not believe he has completed advance directives. per [place] Statutes, medical proxy decision making would fall to the majority of adult children, as Mr. Flores is not legally . His ex Leanne and children ALL participate in decision making, with dtr Leanne and ex Leanne serving as primary points of contact. * Ethical issues impacting care: Important Contacts Leanne, daughter: [phone] Ginny, daughter: [phone] Gerald Flores, son: currently in [facility] for work but has communication with his siblings. Leanne, ex-: [phone] . Prognosis This patient has had 20 day hospital course thus far, admitted on 62 for a large brainstem infarct, bilateral occipital infarcts. He has subsequently had ongoing encephalopathy and severe communication limitations, neurology feels he is in a "locked-in "state. He has suffered from respiratory failure likely secondary to significant CVA. Appears he should be able to survive this acute hospitalization, however not clear when or if he will regain ability to communicate, based on current assessments patient will require long-term care placement. He will remain high risk for potential competition/setbacks due to immobile status including infections, DVT etc. . Code Status: Alternative Code Plan * Legal decision maker - Of note per [place] Statutes, medical proxy decision making would fall to the majority of adult children, as Mr. Flores is not legally . His ex Leanne and children ALL participate in decision making, with dtr Leanne and ex Leanne serving as primary points of contact. * * GOALS: 03/10/17 - palliative care reconsulted. Known to palliative care, seen today in follow up. Goals have been aggressive. They have requested to speak further to oncology, radiation oncology RE potential tx options. Appears they were able to speak w both as of yesterday. A brief course of palliative radiation has been offered, family was discussing. VM left today for dtr Leanne. * CODE STATUSalt code-- vent only * Symptoms: == Dysphagia--Status post significant CVA, has had PEG tube placed; no improvement per ST following --prev. trial with a passy mikey valve, patient with no response or attempt to verbalize--intermittently w copoius secretions. ST signed off == Dyspnea --Respiratory failure secondary to CVA, status post tracheostomy, pulmonary following; currently no apparent distress/ O2 sats / O2 requirements stable--O2 sat stable; in ICU briefly last month, required vent, now stable on 28% FiO2 to T piece. 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 == Malnutrition--Status post PEG tube placement. currently tolerating TF; having bowel movements,- s/p GJ tube . Multiple episodes of GJ tube clogs, currently functioning well. 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 Has morphine 1 mg prn for pain, dressing changes etc. also has Tylenol with Codeine available last dose of morphine on 10/22, last dose of Tylenol with codeine on 03/06, per family appears comfortable. * Palliative care will continue to follow during hospital course as condition evolves, to assist patient/decision-maker with understanding of medical conditions, weighing benefits/burdens of treatment options, for clarification of goals of treatment. Additionally will assist with any symptoms of palliative concern Attestation To help prompt me to consider important information that might be impacting today's encounter and assessment, information from prior notes written by myself or my colleagues may have been "brought forward" into today's note. My signature on this note, however, is an attestation that I personally performed the exam, history, and/or decision-making noted today, and, unless otherwise indicated, the interactions with patient, family, and staff as well as the review of records all occurred today. I also attest that the listed assessment and stated plan reflect my best clinical judgment today based on the combination of historical information, prior notes, and today's exam/ interactions. When time spent is documented, it refers only to time spent today by the signer, or if indicated, combined time spent today by collaborating physician/nurse practitioner. Tiara Colin Mar 12, 2017 10:53
[2017-03-12] MEDS: VANCOMYCIN INJ 1,250 MG in SODIUM CHLOR 0.9% 250 ML INJ 250 ML IV SCH (11:08)
--- NOTE | 2017-03-12 12:15 | HHI.PR ---
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 Pt non-verbal. Followed limited commands. Per RN (Petrnoa) pt had increased secretions over night, requiring more suctioning. Otherwise, no acute issues noted overnight or since start of shift. Discussed with Palliative care (Tiara Souza) who reviewed their involvement with Mr. Flores. Pt afebrile and VSS Objective Vitals Vital Signs Date Time Temp Pulse Resp B/P (MAP) Pulse Ox O2 Delivery O2 Flow Rate FiO2 03/12/17 08:53 100 T-piece 5.00 28 03/12/17 08:00 97.8 100 20 125/77 (93) 98 03/12/17 04:00 97.4 100 18 123/75 (91) 99 03/12/17 00:54 98.8 102 20 123/68 (86) 96 03/11/17 21:30 Trach Collar 03/11/17 20:00 97.8 101 20 114/71 (85) 100 03/11/17 16:00 97.3 103 18 118/67 (84) 98 I/O 03/11/17 03/11/17 03/11/17 03/12/17 03/12/17 03/12/17 07:00 15:00 23:00 07:00 15:00 23:00 Intake Total 867 ml 922 ml Output Total 1600 ml 1150 ml 1500 ml Balance -733 ml -1150 ml -578 ml IV Total 260 ml Tube Feeding 427 ml 562 ml Other 180 ml 360 ml Output Urine Total 1600 ml 1150 ml 1500 ml # Bowel Movements 2 Result Diagram: 03/10/17 1220 03/12/17 0443 Objective Remarks GENERAL: Pt encountered laying a bed, non-verbal, not in acute distress. . SKIN: Warm and dry. Tattoo noted on right forearm. HEAD: Normocephalic. EYES: Non-icteric without injection or drainage. Pt followed finger during cardinal gaze exam. NECK: Supple, trachea midline. T-tube in place. CARDIOVASCULAR: Regular rate and rhythm without murmurs, gallops, or rubs. RESPIRATORY: Breath sounds equal bilaterally. No accessory muscle use. Trach tube in place. Bedside monitor indicated oxygen saturation was 99%. GASTROINTESTINAL: Abdomen soft, non-tender, nondistended. GJ tube noted, gauze present in area around insertion was dry and seemingly without leakage. MUSCULOSKELETAL: No cyanosis, or edema. Bilateral lower leg SCD's present. PSYCHIATRIC: Pt non-verbal, he appeared calm and not in distress. He did follow limited commands: turn head, look at examiner, followed finger as noted above. Procedures 07/22/2016 Wide excision of sacral skin wound, biopsy of the cavity lining and debridement. PEG removal and Gj tube placement 07/29/16 VAC changes- M-W-F 10/23/16, 11/18, 12/31- GJ tube replacement 01/02/16 PEG placement 01/02/16 tracheostomy 02/25/17 PEG replacement 03/03/17 Cystoscopy and palliative transurethral resection of bladder tumor greater than 5cm originating from the right bladder wall Medications and IVs Current Medications Medications (Trade) Dose Ordered Sig/Junior Route Start Time Stop Time Status Last Admin (NS Flush) 2 ml UNSCH PRN IVF 12/21/15 06:00 09/28/16 21:18 (Keppra Liq) 500 mg Q12HR TUBE 12/27/15 21:00 03/12/17 09:15 (Tylenol 650 Mg/ 20 ml Liq) 650 mg Q6H PRN TUBE 12/30/15 15:15 01/18/17 21:34 (Mycostatin Powder) 1 applic Q12HR TOPICAL 01/08/16 21:00 03/12/17 09:00 (Pill Splitter) 1 ea UNSCH PRN OTHER 01/14/16 08:30 (Acetic Acid 0.25% Irr Btl) 10 ml Q8HR IRRIGATION 02/05/16 16:00 03/12/17 06:01 (Paxil Liq) 20 mg DAILY@1900 PEG 03/12/16 19:00 Future hold 03/11/17 18:01 (Zofran Inj) 4 mg Q6HR PRN IV PUSH 04/14/16 19:45 08/10/16 10:16 (Xopenex Neb) 0.63 mg Q4HR NEB PRN NEB 05/05/16 12:00 03/06/17 10:45 (Aspirin) 325 mg DAILY TUBE 05/27/16 11:40 Future Hold 02/25/17 08:28 (Heparin Inj) 5,000 units Q8HR SQ 06/11/16 14:00 Future hold 03/12/17 06:01 (Baciguent Oint) 1 applic BID TOP 07/20/16 10:00 03/12/17 09:00 ([place]) 1 spray BID NASAL 08/01/16 21:00 03/12/17 09:00 (Tears Naturale Opth Soln) 1 drop BID EACH EYE 09/05/16 21:00 03/12/17 09:00 (Morphine Inj) 1 mg Q24H PRN IV PUSH 09/17/16 14:30 10/22/16 02:00 (Dulcolax Supp) 10 mg DAILY PRN RECTAL 09/26/16 15:30 12/08/16 09:17 (Tylenol - Codeine 120-12 Liq) 5 ml Q4H PRN G-TUBE 12/27/16 15:30 03/11/17 10:44 (Imodium Liq) 2 mg Q6H PRN PEG 12/27/16 15:30 01/24/17 20:05 (Milk Of Magnesia Liq) 30 ml DAILY PRN PEG 12/27/16 15:30 02/11/17 08:46 (Milk Of Magnesia Liq) 30 ml DAILY PEG 12/28/16 09:00 Future Hold 01/19/17 08:44 (Senna Liq) 8.8 mg DAILY@1600 PEG 12/27/16 16:00 03/10/17 17:41 (Lactulose Liq) 30 ml DAILY PRN PEG 12/27/16 15:30 (Cardizem) 30 mg QID PEG 01/09/17 18:00 03/12/17 09:14 (D50w (Vial) Inj) 50 ml UNSCH PRN IV 01/09/17 16:00 (Glucagon Inj) 1 mg UNSCH PRN OTHER 01/09/17 16:00 (Prevacid Odt) 30 mg BID NG 01/26/17 21:00 03/12/17 09:15 (Ashish Powder) 1 pack BID G-TUBE 02/10/17 21:00 03/11/17 21:00 (Ferrous Sulfate Liq) 300 mg DAILY PO 02/14/17 09:00 03/12/17 09:15 (Vitamin C) 1,000 mg DAILY PO 02/14/17 09:00 03/12/17 09:15 (Bacitracin Oint Packet) 0.9 gm DAILY TOPICAL 02/25/17 09:00 03/11/17 08:14 (Levsin) 0.25 mg Q8H G-TUBE 03/09/17 22:00 04/08/17 21:59 03/12/17 06:00 Pharmacy Profile Note 0 ml @ 0 mls/hr UNSCH OTHER 03/10/17 09:00 Vancomycin HCl 1250 mg/Sodium Chloride 262.5 ml @ 250 mls/hr Q12H IV 03/10/17 11:00 03/12/17 11:08 Urinary Catheter: Yes Assessment to: Continue Lopez insert reason: Prolonged Immobilization Date of Insertion: Feb 10, 2017 A/P Problem List: (1) CVA (cerebral vascular accident) ICD Code: I63.9 - Cerebral infarction, unspecified Status: Acute (2) A-fib ICD Code: I48.91 - Unspecified atrial fibrillation Status: Chronic (3) DM (diabetes mellitus) ICD Code: E11.9 - Type 2 diabetes mellitus without complications Status: Chronic Assessment and Plan Mr. Flores is 61 year-old male with past medical history of paroxysmal A. fib, hypertension, stage III non-Hodgkin's lymphoma status post chemotherapy who came into the hospital with altered mental status. Interventional radiology note reviewed, per note treatment to be determined after family has conferred. Discussed with Palliative care. Urology note reviewed. Levsin continues for oral secretions. Gross Hematuria - Lopez change following cystoscopy procedure 03/03/17. - Hematuria resolved x 48hrs. Heparin and ASA resumed. No resumption of hematuria noted. - Urology Consult appreciated. Recommends flushing Lopez catheter. - CT of the abdomen showed bladder mass right posteriorly with apparent extravesical extension and clot formation. - Urology spoke with family member, daughter, states that he's not recommending biopsy of the bladder mass. However daughter insisted on biopsy. Patient s/p cystoscopy and palliative transurethral resection of bladder tumor greater than 5 cm originating from right bladder wall performed by Dr. Sewell . 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 Dr. Pruitt discussed at length with sister and daughter at the bedside who have requested consultations from Urology and Oncology to consider all the options available. Oncology consult placed. Requested nursing staff reach out to Dr. Springer to discuss results/options. - Oncology following - appreciate their assistance. Family requesting aggressive therapy. Difficult patient to treat with chemotherapy. Dr. Whyte who is familiar with the patient and treated his lymphoma in the past to see on Friday. - Discussed with sister palliative care consultation and she is agreeable. Order placed for palliative care consult. - H&H dropped to 7.4/24.3. Improved status post transfusion. Hemoglobin appears stable. - Continue to flush lopez catheter PRN. Abdominal wound/ lesion - Below the GJ incision site appears to be worsening as well as increased purulence around PEG site. Started on Vancomycin. Pharmacy to dose. Continue to monitor. May need bedside I&D. - Wound Care consulted and recommends leaving open to air, imaging soft tissue ultrasound. - Continue Bacitracin - Ultrasound soft tissue surrounding area for possible fluid collection that would need I & D. - Soft tissue ultrasound showed 1. Just inferior to that the tube in the left abdomen, there is a superficial 3.8 x 2.9 0.9 cm complex fluid collection in the subcutaneous tissue. 2. Findings are nonspecific. This could represent a small seroma or abscess. Would consider CT scan of the abdomen with contrast for further evaluation and determine if there is an intraperitoneal extension. - CT of the abdomen showed 1. Abdominal aortic aneurysm. 2. Bladder mass is noted on the right posteriorly with apparent extravesical extension and clot formation. 3. Left renal cyst. 4. Left lower lobe atelectasis. 5. Large sacral decubitus ulcer with bony disruption and sclerosis of the sacrum mid to left lateral portion in the region of S3 and inferiorly which would suggest chronic osteomyelitis in the appropriate clinical setting. - No intraperitoneal extension noted for the wound. 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 Intermittently tracks with eyes. - Continue Keppra 500mg BID for seizure prophylaxis. Keppra level 17.8. - PT/OT signed off as patient is unable to participate. - On Paxil 20 by mouth daily for depression. - On acetaminophen with codeine for pain scale of 2-10. - Morphine 1 mg every 24 hours when necessary for dressing change Chronic respiratory failure secondary to CVA - Status post tracheostomy. Continue pulmonary toilet and bronchodilators as needed. Continue trach care, suctioning. Increased secretions improved with scheduled Levsin. Decreased dosing of scheduled Levsin to q8h. Pulmonary toilet. Monitor. - Trach changed to size #6 XLT on 01/09 - Duo nebs every 4 hours while awake - Pulmonary currently following, appreciate assistance. - 01/09 CTA chest: No PE, bilateral lower lobe infiltrates. 4 mm right upper lobe/5 mm right middle lobe nodule. - CXR 02/22/17 reveals minimal atelectasis - CXR 03/07/17 showing mild streaky opacity at the lung bases with no focal consolidation or effusion. Right hallux ingrown toenail, paronychia- medial aspect 02/23/17 new area of paronychia right hallux ingrown toe nail lateral aspect - Regional Project Manager has seen patient. I & D with partial nail avulsion performed at bedside 02/06/17. - Seen by podiatry. Plan is to aggressively cut the nail back. - Resolved Atrial fibrillation, controlled but more tachycardic Hypertension Dyslipidemia - Continue rate control with Cardizem and metoprolol. Increased tachycardia may be due to abdominal infection. Monitor. - Echocardiogram in November 2015 shows preserved ejection fraction. Coumadin discontinued secondary to bleeding. - Continue aspirin History of non-Hodgkin's lymphoma - Status post brain biopsy on December 13 by neurosurgery. Pathology consistent with acute infarct without evidence of lymphoma. Oncology has signed off. Diabetes mellitus Type 2 - Hemoglobin A1c is 5.5. - Fingersticks have been stable and were DC'd 02/01/17 Decubitus ulcer stage IV - Continue wound care, twice-daily dressing changes. Wound care recommendations last updated 12/12/16. Continue pressure relief measures including turning and positioning. Patient's family has declined a diverting colostomy. Previous Wound culture growing Klebsiella and Enterococcus Faecalis. Previously on Augmentin. Status post wide excision of sacral skin and biopsy of the cavity lining with debridement on 07/22/16. - Wound care last saw patient on 01/17/17, no new recommendations continue packing with Betadine moistened rolled Janis and covered with ABD pad and paper tape to secure. - Continue to monitor. Continue pressure-relief. - Morphine 1 mg every 24 hours when necessary for dressing change Protein calorie malnutrition Gastroesophageal reflux disease Gastric ulcer, reflux esophagitis Diarrhea, negative for C. difficile. Improved - EGD on 07/30/16 showed gastric ulcers. - On Prevacid 30 mg Q12, on tube feeds(Jevity 1.5 at 55 ml/hr) - Continue bowel regimen with hold parameters, Lactinex and Imodium. - G/J tube clogged, IR consulted to evaluate. Replaced on 02/25/17 - Reiterated proper G/J tube care and flush procedures. Discuss and explained with family. UTI pseudomonas aeruginosa Recurrent - Previous Repeat Ucx 08/28/16 negative. - 02/22/17 UA consistent with UTI - cultures pseudomonas, currently on Rocephin will change to cefepime since last culture was also Pseudomonas and was sensitive to cefepime. - Sensitivities came back, was switched over to Zosyn as cultures are not sensitive to cefepime. Completed. Klebsiella/Pseudomonas/staph aureus HCAP PSAE UTI - S/p Cefepime. Monitor for signs of infections. - strep pneumonia and Legionella urinary Ag is negative - C-diff PCR negative on 01/13 - 01/09 BC : Staph Epi, Urine cx: Pseudomonas, Sputum cx: Pseudomonas, kleb, Staph. - Patient was pancultured on 01/19 (Blood, sputum, urine) NGTD in urine and blood. Sputum + for pseudomonas. Hyponatremia - mild - IVF bolus - repeat labs ordered to monitor. DVT prophylaxis: SCDs. Heparin 5,000 units sq Q8hr Discussed with nursing staff, mother (at bedside), Palliative care, and Dr. Pruitt Discharge Planning Pt being evaluated by Jarrod. Discussed with CM about placement. CM stated discussions ongoing between [place] and [facility] for possible transfer. Problem Qualifiers (1) CVA (cerebral vascular accident): (2) DM (diabetes mellitus): Javier Harris Jr. Mar 12, 2017 12:15
--- NOTE | 2017-03-12 14:48 | PD.ONC.PN ---
Subjective Subjective Remarks More secretions than normal overnight Otherwise no other acute events Objective Data Date Time Temp Pulse Resp B/P (MAP) Pulse Ox O2 Delivery O2 Flow Rate FiO2 03/12/17 12:00 97.2 92 20 115/64 (81) 99 03/12/17 08:53 100 T-piece 5.00 28 03/12/17 08:00 97.8 100 20 125/77 (93) 98 03/12/17 04:00 97.4 100 18 123/75 (91) 99 03/12/17 00:54 98.8 102 20 123/68 (86) 96 03/11/17 21:30 Trach Collar 03/11/17 20:00 97.8 101 20 114/71 (85) 100 03/11/17 16:00 97.3 103 18 118/67 (84) 98 03/12/17 03/12/17 03/12/17 07:00 15:00 23:00 Intake Total 922 ml Output Total 1500 ml Balance -578 ml Result Diagram: 03/10/17 1220 03/12/17 0443 Laboratory Results Laboratory Tests Test 03/12/17 04:43 03/12/17 11:06 Creatinine 1.06 MG/DL Estimat Glomerular Filtration Rate 71 ML/MIN Vancomycin Level Trough 26.5 MCG/ML Administered Medications Medications (Trade) Dose Ordered Sig/Junior Route PRN Reason Start Time Stop Time Status Last Admin Dose Admin IV Flush (NS Flush) 2 ml UNSCH PRN IVF FLUSH AFTER USING IV ACCESS 12/21/15 06:00 09/28/16 21:18 Levetriacetam (Keppra Liq) 500 mg Q12HR TUBE 12/27/15 21:00 03/12/17 09:15 Acetaminophen (Tylenol 650 Mg/ 20 ml Liq) 650 mg Q6H PRN TUBE TEMP >100.4 12/30/15 15:15 01/18/17 21:34 Nystatin (Mycostatin Powder) 1 applic Q12HR TOPICAL 01/08/16 21:00 03/12/17 09:00 Acetic Acid (Acetic Acid 0.25% Irr Btl) 10 ml Q8HR IRRIGATION 02/05/16 16:00 03/12/17 13:36 Paroxetine HCl (Paxil Liq) 20 mg DAILY@1900 PEG 03/12/16 19:00 Future hold 03/11/17 18:01 Ondansetron HCl (Zofran Inj) 4 mg Q6HR PRN IV PUSH nausea/vomiting 04/14/16 19:45 08/10/16 10:16 Levalbuterol HCl (Xopenex Neb) 0.63 mg Q4HR NEB PRN NEB SHORTNESS OF BREATH 05/05/16 12:00 03/06/17 10:45 Aspirin (Aspirin) 325 mg DAILY TUBE 05/27/16 11:40 Future Hold 02/25/17 08:28 Heparin Sodium (Porcine) (Heparin Inj) 5,000 units Q8HR SQ 06/11/16 14:00 Future hold 03/12/17 13:35 Bacitracin (Baciguent Oint) 1 applic BID TOP 07/20/16 10:00 03/12/17 09:00 Sodium Chloride ([place]) 1 spray BID NASAL 08/01/16 21:00 03/12/17 09:00 Artificial Tears (Tears Naturale Opth Soln) 1 drop BID EACH EYE 09/05/16 21:00 03/12/17 09:00 Morphine Sulfate (Morphine Inj) 1 mg Q24H PRN IV PUSH dressing change 30 min before 09/17/16 14:30 10/22/16 02:00 Bisacodyl (Dulcolax Supp) 10 mg DAILY PRN RECTAL SEVERE CONSTIPATION IF NOT PO 09/26/16 15:30 12/08/16 09:17 Acetaminophen/ Codeine Phosphate (Tylenol - Codeine 120-12 Liq) 5 ml Q4H PRN G-TUBE pain 2-10 12/27/16 15:30 03/11/17 10:44 Loperamide HCl (Imodium Liq) 2 mg Q6H PRN PEG DIARRHEA 12/27/16 15:30 01/24/17 20:05 Magnesium Hydroxide (Milk Of Magnesia Liq) 30 ml DAILY PRN PEG mild-moderate constipation 12/27/16 15:30 02/11/17 08:46 Magnesium Hydroxide (Milk Of Magnesia Liq) 30 ml DAILY PEG 12/28/16 09:00 Future Hold 01/19/17 08:44 Sennosides (Senna Liq) 8.8 mg DAILY@1600 PEG 12/27/16 16:00 03/10/17 17:41 Diltiazem HCl (Cardizem) 30 mg QID PEG 01/09/17 18:00 03/12/17 09:14 Lansoprazole (Prevacid Odt) 30 mg BID NG 01/26/17 21:00 03/12/17 09:15 Arginine HCl (Ashish Powder) 1 pack BID G-TUBE 02/10/17 21:00 03/12/17 09:00 Ferrous Sulfate (Ferrous Sulfate Liq) 300 mg DAILY PO 02/14/17 09:00 03/12/17 09:15 Ascorbic Acid (Vitamin C) 1,000 mg DAILY PO 02/14/17 09:00 03/12/17 09:15 Bacitracin (Bacitracin Oint Packet) 0.9 gm DAILY TOPICAL 02/25/17 09:00 03/11/17 08:14 Hyoscyamine Sulfate (Levsin) 0.25 mg Q8H G-TUBE 03/09/17 22:00 04/08/17 21:59 03/12/17 13:35 Vancomycin HCl 1250 mg/Sodium Chloride 262.5 ml @ 250 mls/hr Q12H IV 03/10/17 11:00 Future Hold 03/12/17 11:08 Objective Remarks GENERAL: Chronically ill patient resting in bed in no distress. SKIN: Warm and dry. HEAD: Normocephalic. EYES: No injection or drainage. NECK: Supple, trach placed midline. CARDIOVASCULAR: Regular rate and rhythm without murmurs. RESPIRATORY: Scattered rhonchi anteriorly. GASTROINTESTINAL: Abdomen soft, non-tender, nondistended. EXTREMITIES: No cyanosis, or edema. NEUROLOGICAL: Nonverbal. Not following commands. Assessment/Plan Problem List: (1) Bladder mass ICD Codes: N32.89 - Other specified disorders of bladder Status: Acute Plan: 03/12/17: The patient's family is deciding whether or not to pursue XRT. 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 This is likely to spread, and the radiation therapy would be only palliative in nature. 03/11/17: The pt's CT chest was negative for malignancy. Will consult radiation oncology to evaluate for XRT to bladder mass. Pt is not a candidate for chemotherapy. Workup: The pt developed hematuria while inpatient and imaging found a 5.4x3.5cm bladder mass. Pathology showed small cell carcinoma. CT chest negative for malignancy. Palliative care saw the pt again and have discuss with the family. Family wants everything done. (2) Non-Hodgkin lymphoma ICD Codes: C85.90 - Non-Hodgkin lymphoma, unspecified, unspecified site Status: Chronic Plan: no evidence of recurrence Assessment 61 y/o male with prolonged hospitalization found to have a bladder mass. Attending Statement No new complaints pt mom at the bedside. She wants everything done Family has to decide about radiation treatment The exam, history, and the medical decision-making described in the above note were completed with the assistance of the mid-level provider. I reviewed and agree with the findings presented. I attest that I had a [id number] encounter with the patient on the same day, and personally performed and documented my assessment and findings in the medical record. Lynne Castañeda Mar 12, 2017 14:48 Ed Whyte MD Mar 12, 2017 21:27
[2017-03-12] MEDS: SENNOSIDES SYRUP 8.8 MG/5 ML CUP PEG SCH (16:00)
[2017-03-12] MEDS: PARoxetine HCL SUSP 20 MG/10 ML UDC PEG SCH (17:48)
[2017-03-12] MEDS: ACETAMINOPHEN/CODEINE ELIX 120 MG/12 MG/5 ML CUP G-TUBE PRN (17:54)
[2017-03-13] VITALS: BP 103/68; PULSE 99; RESP 18; TEMP 98.4; O2SAT 100
[2017-03-13] MEDS: HEPARIN SODIUM - SQ 10,000 UNITS/ML VIAL SQ SCH ×3 (05:20→21:43)
[2017-03-13] MEDS: HYOSCYAMINE 0.125 MG TAB G-TUBE SCH ×3 (05:21→21:43)
[2017-03-13] MEDS: ACETIC ACID 0.25% SOLN 1000 ML IRR BTL IRRIGATION SCH ×3 (05:21→21:43)
[2017-03-13] MEDS: FERROUS SULFATE 300 MG /5ML UDC PO SCH (07:21)
[2017-03-13] MEDS: DILTIAZEM HCL 30 MG TAB PEG SCH ×4 (07:21→20:30)
[2017-03-13] MEDS: LANSOPRAZOLE SOLUTAB 30 MG TAB NG SCH ×2 (07:21→20:30)
[2017-03-13] MEDS: levETIRAcetam 500 MG/5 ML UDC TUBE SCH ×2 (07:23→20:30)
[2017-03-13] MEDS: NYSTATIN 100,000 U/GM PWD 15 GM BTL TOPICAL SCH ×2 (07:23→20:31)
[2017-03-13] MEDS: BACITRACIN TOP OINT 15 GM TUBE TOP SCH ×2 (07:24→20:31)
[2017-03-13] MEDS: SODIUM CHLORIDE 0.65% NASAL SPRAY 45 ML BTL NASAL SCH ×2 (07:24→20:31)
[2017-03-13] MEDS: JUVEN POWDER 1 PACK G-TUBE SCH ×2 (07:25→20:31)
[2017-03-13] MEDS: ARTIFICIAL TEARS OPTH SOLN 15 ML BTL EACH EYE SCH ×2 (07:25→20:30)
[2017-03-13] MEDS: BACITRACIN OINT 0.9 GM PKT TOPICAL SCH (07:26)
[2017-03-13] MEDS: ASCORBIC ACID 500 MG TAB PO SCH (07:32)
[2017-03-13 08:00] VITALS: BP 119/73; PULSE 104; RESP 16; TEMP 95.5; O2SAT 100
[2017-03-13 12:00] VITALS: BP 108/66; PULSE 105; RESP 16; TEMP 97.6; O2SAT 100
--- NOTE | 2017-03-13 12:30 | HHI.PR ---
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 Pt seen and examined. Pt non-verbal. Per mother at bedside, she noted wound at peg site, with some drainage. Per nursing (Petrona) Slight discharge has been noted at new peg site. VSS. Afebrile. No new issues reported overnight or since start of shift. Objective Vitals Vital Signs Date Time Temp Pulse Resp B/P (MAP) Pulse Ox O2 Delivery O2 Flow Rate FiO2 03/13/17 12:00 97.6 105 16 108/66 (80) 100 03/13/17 08:00 95.5 104 16 119/73 (88) 100 03/13/17 07:21 T-Piece 03/13/17 00:00 98.4 99 18 103/68 (80) 100 03/12/17 22:00 Trach Collar 28 03/12/17 20:00 97.9 96 18 120/68 (85) 100 03/12/17 15:43 98.5 103 20 111/64 (80) 97 I/O 03/12/17 03/12/17 03/12/17 03/13/17 03/13/17 03/13/17 06:59 14:59 22:59 06:59 14:59 22:59 Intake Total 922 ml 250 ml 1040 ml 727 ml Output Total 1500 ml 1050 ml 1500 ml Balance -578 ml 250 ml -10 ml -773 ml Intake Oral 0 ml 0 ml 0 ml IV Total 250 ml Tube Feeding 562 ml 620 ml 647 ml Tube Irrigant 120 ml 80 ml Other 360 ml 300 ml Output Urine Total 1500 ml 1050 ml 1500 ml # Bowel Movements 2 2 Result Diagram: 03/10/17 1220 03/12/17 0443 Imaging Last Impressions Chest CT 03/10/17 0000 Signed Impressions: Service Date/Time: Friday, March 10, 2017 21:00 - CONCLUSION: 1. Periaortic soft tissue along the proximal descending thoracic aorta not previously seen. This represents either lymphomatous involvement or adjacent consolidated airspace disease. 2. Mild bilateral airspace disease 3. No evidence of significant lymphadenopathy involving the mediastinum, hilar regions, axillas or supraclavicular lore chain. 4. Tracheostomy tube in place. Ernesto Kulkarni MD Chest X-Ray 03/07/17 0000 Signed Impressions: Service Date/Time: Tuesday, March 07, 2017 10:24 - CONCLUSION: Mild streaky opacity at the lung bases most are cystic of atelectasis. Gerald Mukherjee MD Abdomen/Pelvis CT 02/27/17 0000 Signed Impressions: Service Date/Time: February 02:24 - CONCLUSION: 1. Abdominal aortic aneurysm. 2. Bladder mass is noted on the right posteriorly with apparent extravesical extension and clot formation. 3. Left renal cyst. 4. Left lower lobe atelectasis. 5. Large sacral decubitus ulcer with bony destruction and sclerosis of the sacrum mid to left lateral portion in the region of S3 and inferiorly which would suggest chronic osteomyelitis in the appropriate clinical setting. Rajan Granados MD Soft Tissue Ultrasound 02/26/17 0000 Signed Impressions: Service Date/Time: Sunday, February 26, 2017 12:52 - CONCLUSION: 1. Just inferior to the G-tube in the left abdomen, there is a superficial 3.8 x 2.9 0.9 cm complex fluid collection in the subcutaneous tissues. 2. Findings are nonspecific. This could represent a small seroma or abscess. Would consider CT scan of the abdomen without contrast for further evaluation to determine if there is intraperitoneal extension. Bobby Gray MD Gastrostomy Tube Placement 02/25/17 0000 Signed Impressions: Service Date/Time: Saturday, February 25, 2017 14:19 - CONCLUSION: Uncomplicated exchange of gastroenteric feeding tube for gastrostomy tube as above. Positioning confirmed. The tube can be used immediately. Glen Zamora MD Tube Change 02/14/17 0000 Signed Impressions: Service Date/Time: Tuesday, February 14, 2017 00:00 - CONCLUSION: Uncomplicated gastrojejunostomy tube exchange as above. Scott Griffin MD Head CT 01/09/17 0000 Signed Impressions: Service Date/Time: December 17:43 - CONCLUSION: 1. No acute hemorrhage or mass effect. 2. 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 3. Atrophy. Gerald Mukherjee MD CT Angiography 01/09/17 0000 Signed Impressions: Service Date/Time: December 17:49 - CONCLUSION: 1. No evidence of pulmonary emboli. 2. Patchy consolidation in both posterior lower lobes right greater than left. This could represent pneumonia. 3. 2 small noncalcified pulmonary nodules which are nonspecific finding. Short-term CT followup is recommended beginning in 6 months with a noncontrast outpatient CT. Gerald Mukherjee MD Tube Check 12/04/16 0000 Signed Impressions: Service Date/Time: Sunday, December 04, 2016 17:58 - CONCLUSION: Uncomplicated tube injection as above. the tube is in good position and functions normally. Moises Ramírez MD Abdomen X-Ray 08/31/16 0000 Signed Impressions: Service Date/Time: Wednesday, August 31, 2016 16:36 - CONCLUSION: 1. No acute findings. Mild constipation. Durga Dotson MD Head Magnetic Resonance Angiography 03/05/16 0000 Signed Impressions: Service Date/Time: Saturday, March 05, 2016 09:26 - CONCLUSION: Persistent high-grade subtotal occlusive stenotic lesions in the distal right vertebral artery and proximal basilar artery with significant improvement in flow and recanalization following initial presentation of thrombosis. Stable interstitial circulation without significant stenosis. Ernesto Kulkarni MD Brain MRI 03/05/16 0000 Signed Impressions: Service Date/Time: Saturday, March 05, 2016 09:26 - CONCLUSION: Evolving brainstem and bilateral occipital lobe infarcts with evidence of subacute hemorrhagic products. There is decreasing restricted diffusion and increasing loss of volume characteristic of a subacute to chronic infarct. No evidence of acute infarct, acute hemorrhage mass or edema. Ernesto Kulkarni MD Neck Magnetic Resonance Angiography 12/22/15 1445 Signed Impressions: Service Date/Time: Tuesday, December 22, 2015 09:22 - CONCLUSION: Variant origin of the left vertebral artery from the aortic arch. No evidence of carotid stenosis. Glen Zamora MD Head/Brain Mag Res Venography 12/22/15 0000 Signed Impressions: Service Date/Time: Tuesday, December 22, 2015 09:22 - CONCLUSION: Normal MRV. Jonel Jones Jr., MD Objective Remarks GENERAL: Pt encountered laying a bed, non-verbal, head turned to the left, mother had placed ipad with video playing in front of pt. SKIN: Warm and dry. Tattoo noted on right forearm. HEAD: Normocephalic. EYES: Non-icteric without injection or drainage. Pt did not follow finger during cardinal gaze exam. NECK: Supple, trachea midline. T-tube in place. CARDIOVASCULAR: Regular rate and rhythm without murmurs, gallops, or rubs. RESPIRATORY: Breath sounds equal bilaterally. No accessory muscle use. Trach tube in place. Bedside monitor indicated oxygen saturation was 98%. GASTROINTESTINAL: Abdomen soft, non-tender, nondistended. GJ tube noted, gauze present in area around insertion. Area of redness with white material in wound. MUSCULOSKELETAL: No cyanosis, or edema. Bilateral lower leg SCD's present. PSYCHIATRIC: Pt non-verbal, he appeared calm and not in distress. He did not follow limited commands. Procedures 07/22/2016 Wide excision of sacral skin wound, biopsy of the cavity lining and debridement. PEG removal and Gj tube placement 07/29/16 VAC changes- M-W-F 10/23/16, 11/18, 12/31- GJ tube replacement 01/02/16 PEG placement 01/02/16 tracheostomy 02/25/17 PEG replacement 03/03/17 Cystoscopy and palliative transurethral resection of bladder tumor greater than 5cm originating from the right bladder wall Medications and IVs Current Medications Medications (Trade) Dose Ordered Sig/Junior Route Start Time Stop Time Status Last Admin (NS Flush) 2 ml UNSCH PRN IVF 12/21/15 06:00 09/28/16 21:18 (Keppra Liq) 500 mg Q12HR TUBE 12/27/15 21:00 03/13/17 07:23 (Tylenol 650 Mg/ 20 ml Liq) 650 mg Q6H PRN TUBE 12/30/15 15:15 01/18/17 21:34 (Mycostatin Powder) 1 applic Q12HR TOPICAL 01/08/16 21:00 03/13/17 07:23 (Pill Splitter) 1 ea UNSCH PRN OTHER 01/14/16 08:30 (Acetic Acid 0.25% Irr Btl) 10 ml Q8HR IRRIGATION 02/05/16 16:00 03/13/17 05:21 (Paxil Liq) 20 mg DAILY@1900 PEG 03/12/16 19:00 Future hold 03/12/17 17:48 (Zofran Inj) 4 mg Q6HR PRN IV PUSH 04/14/16 19:45 08/10/16 10:16 (Xopenex Neb) 0.63 mg Q4HR NEB PRN NEB 05/05/16 12:00 03/06/17 10:45 (Aspirin) 325 mg DAILY TUBE 05/27/16 11:40 Future Hold 02/25/17 08:28 (Heparin Inj) 5,000 units Q8HR SQ 06/11/16 14:00 Future hold 03/13/17 05:20 (Baciguent Oint) 1 applic BID TOP 07/20/16 10:00 03/13/17 07:24 ([place] Angel [place]) 1 spray BID NASAL 08/01/16 21:00 03/13/17 07:24 (Tears Naturale Opth Soln) 1 drop BID EACH EYE 09/05/16 21:00 03/13/17 07:25 (Morphine Inj) 1 mg Q24H PRN IV PUSH 09/17/16 14:30 10/22/16 02:00 (Dulcolax Supp) 10 mg DAILY PRN RECTAL 09/26/16 15:30 12/08/16 09:17 (Tylenol - Codeine 120-12 Liq) 5 ml Q4H PRN G-TUBE 12/27/16 15:30 03/12/17 17:54 (Imodium Liq) 2 mg Q6H PRN PEG 12/27/16 15:30 01/24/17 20:05 (Milk Of Magnesia Liq) 30 ml DAILY PRN PEG 12/27/16 15:30 02/11/17 08:46 (Milk Of Magnesia Liq) 30 ml DAILY PEG 12/28/16 09:00 Future Hold 01/19/17 08:44 (Senna Liq) 8.8 mg DAILY@1600 PEG 12/27/16 16:00 03/10/17 17:41 (Lactulose Liq) 30 ml DAILY PRN PEG 12/27/16 15:30 (Cardizem) 30 mg QID PEG 01/09/17 18:00 03/13/17 07:21 (D50w (Vial) Inj) 50 ml UNSCH PRN IV 01/09/17 16:00 (Glucagon Inj) 1 mg UNSCH PRN OTHER 01/09/17 16:00 (Prevacid Odt) 30 mg BID NG 01/26/17 21:00 03/13/17 07:21 (Ashish Powder) 1 pack BID G-TUBE 02/10/17 21:00 03/13/17 07:25 (Ferrous Sulfate Liq) 300 mg DAILY PO 02/14/17 09:00 03/13/17 07:21 (Vitamin C) 1,000 mg DAILY PO 02/14/17 09:00 03/13/17 07:32 (Bacitracin Oint Packet) 0.9 gm DAILY TOPICAL 02/25/17 09:00 03/13/17 07:26 (Levsin) 0.25 mg Q8H G-TUBE 03/09/17 22:00 04/08/17 21:59 03/13/17 05:21 Pharmacy Profile Note 0 ml @ 0 mls/hr UNSCH OTHER 03/10/17 09:00 Vancomycin HCl 1250 mg/Sodium Chloride 262.5 ml @ 250 mls/hr Q12H IV 03/10/17 11:00 Future Hold 03/12/17 11:08 Urinary Catheter: Yes Assessment to: Continue Lopez insert reason: Prolonged Immobilization Date of Insertion: Feb 10, 2017 A/P Problem List: (1) CVA (cerebral vascular accident) ICD Code: I63.9 - Cerebral infarction, unspecified Status: Acute (2) A-fib ICD Code: I48.91 - Unspecified atrial fibrillation Status: Chronic (3) DM (diabetes mellitus) ICD Code: E11.9 - Type 2 diabetes mellitus without complications Status: Chronic Assessment and Plan Mr. Flores is 61 year-old male with past medical history of paroxysmal A. fib, hypertension, stage III non-Hodgkin's lymphoma status post chemotherapy who came into the hospital with altered mental status. Wound noted at peg site: culture and gram stain ordered. Awaiting results. Cancer: Review of notes indicated family has not made a decision about cancer treatment. Gross Hematuria - Lopez change following cystoscopy procedure 03/03/17. - Hematuria resolved x 48hrs. Heparin and ASA resumed. No resumption of hematuria noted. - Urology Consult appreciated. Recommends flushing Lopez catheter. - CT of the abdomen showed bladder mass right posteriorly with apparent extravesical extension and clot formation. - Urology spoke with family member, daughter, states that he's not recommending biopsy of the bladder mass. However daughter insisted on biopsy. Patient s/p cystoscopy and palliative transurethral resection of bladder tumor greater than 5 cm originating from right bladder wall performed by Dr. Sewell . 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 Dr. Pruitt discussed at length with sister and daughter at the bedside who have requested consultations from Urology and Oncology to consider all the options available. Oncology consult placed. Requested nursing staff reach out to Dr. Springer to discuss results/options. - Oncology following - appreciate their assistance. Family requesting aggressive therapy. Difficult patient to treat with chemotherapy. Dr. Whyte who is familiar with the patient and treated his lymphoma in the past to see on Friday. - Discussed with sister palliative care consultation and she is agreeable. Order placed for palliative care consult. - H&H dropped to 7.4/24.3. Improved status post transfusion. Hemoglobin appears stable. - Continue to flush lopez catheter PRN. Abdominal wound/ lesion - Below the GJ incision site appears to be worsening as well as increased purulence around PEG site. Started on Vancomycin. Pharmacy to dose. Continue to monitor. May need bedside I&D. - Wound Care consulted and recommends leaving open to air, imaging soft tissue ultrasound. - Continue Bacitracin - Ultrasound soft tissue surrounding area for possible fluid collection that would need I & D. - Soft tissue ultrasound showed 1. Just inferior to that the tube in the left abdomen, there is a superficial 3.8 x 2.9 0.9 cm complex fluid collection in the subcutaneous tissue. 2. Findings are nonspecific. This could represent a small seroma or abscess. Would consider CT scan of the abdomen with contrast for further evaluation and determine if there is an intraperitoneal extension. - CT of the abdomen showed 1. Abdominal aortic aneurysm. 2. Bladder mass is noted on the right posteriorly with apparent extravesical extension and clot formation. 3. Left renal cyst. 4. Left lower lobe atelectasis. 5. Large sacral decubitus ulcer with bony disruption and sclerosis of the sacrum mid to left lateral portion in the region of S3 and inferiorly which would suggest chronic osteomyelitis in the appropriate clinical setting. - No intraperitoneal extension noted for the wound. 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 Intermittently tracks with eyes. - Continue Keppra 500mg BID for seizure prophylaxis. Keppra level 17.8. - PT/OT signed off as patient is unable to participate. - On Paxil 20 by mouth daily for depression. - On acetaminophen with codeine for pain scale of 2-10. - Morphine 1 mg every 24 hours when necessary for dressing change Chronic respiratory failure secondary to CVA - Status post tracheostomy. Continue pulmonary toilet and bronchodilators as needed. Continue trach care, suctioning. Increased secretions improved with scheduled Levsin. Decreased dosing of scheduled Levsin to q8h. Pulmonary toilet. Monitor. - Trach changed to size #6 XLT on 01/09 - Duo nebs every 4 hours while awake - Pulmonary currently following, appreciate assistance. - 01/09 CTA chest: No PE, bilateral lower lobe infiltrates. 4 mm right upper lobe/5 mm right middle lobe nodule. - CXR 02/22/17 reveals minimal atelectasis - CXR 03/07/17 showing mild streaky opacity at the lung bases with no focal consolidation or effusion. Right hallux ingrown toenail, paronychia- medial aspect 02/23/17 new area of paronychia right hallux ingrown toe nail lateral aspect - After School Program Assistant has seen patient. I & D with partial nail avulsion performed at bedside 02/06/17. - Seen by podiatry. Plan is to aggressively cut the nail back. - Resolved Atrial fibrillation, controlled but more tachycardic Hypertension Dyslipidemia - Continue rate control with Cardizem and metoprolol. Increased tachycardia may be due to abdominal infection. Monitor. - Echocardiogram in November 2015 shows preserved ejection fraction. Coumadin discontinued secondary to bleeding. - Continue aspirin History of non-Hodgkin's lymphoma - Status post brain biopsy on December 13 by neurosurgery. Pathology consistent with acute infarct without evidence of lymphoma. Oncology has signed off. Diabetes mellitus Type 2 - Hemoglobin A1c is 5.5. - Fingersticks have been stable and were DC'd 02/01/17 Decubitus ulcer stage IV - Continue wound care, twice-daily dressing changes. Wound care recommendations last updated 12/12/16. Continue pressure relief measures including turning and positioning. Patient's family has declined a diverting colostomy. Previous Wound culture growing Klebsiella and Enterococcus Faecalis. Previously on Augmentin. Status post wide excision of sacral skin and biopsy of the cavity lining with debridement on 07/22/16. - Wound care last saw patient on 01/17/17, no new recommendations continue packing with Betadine moistened rolled Janis and covered with ABD pad and paper tape to secure. - Continue to monitor. Continue pressure-relief. - Morphine 1 mg every 24 hours when necessary for dressing change Protein calorie malnutrition Gastroesophageal reflux disease Gastric ulcer, reflux esophagitis Diarrhea, negative for C. difficile. Improved - EGD on 07/30/16 showed gastric ulcers. - On Prevacid 30 mg Q12, on tube feeds(Jevity 1.5 at 55 ml/hr) - Continue bowel regimen with hold parameters, Lactinex and Imodium. - G/J tube clogged, IR consulted to evaluate. Replaced on 02/25/17 - Reiterated proper G/J tube care and flush procedures. Discuss and explained with family. UTI pseudomonas aeruginosa Recurrent - Previous Repeat Ucx 08/28/16 negative. - 02/22/17 UA consistent with UTI - cultures pseudomonas, currently on Rocephin will change to cefepime since last culture was also Pseudomonas and was sensitive to cefepime. - Sensitivities came back, was switched over to Zosyn as cultures are not sensitive to cefepime. Completed. Klebsiella/Pseudomonas/staph aureus HCAP PSAE UTI - S/p Cefepime. Monitor for signs of infections. - strep pneumonia and Legionella urinary Ag is negative - C-diff PCR negative on 01/13 - 01/09 BC : Staph Epi, Urine cx: Pseudomonas, Sputum cx: Pseudomonas, kleb, Staph. - Patient was pancultured on 01/19 (Blood, sputum, urine) NGTD in urine and blood. Sputum + for pseudomonas. Hyponatremia - mild - IVF bolus - repeat labs ordered to monitor. DVT prophylaxis: SCDs. Heparin 5,000 units sq Q8hr Discussed with nursing staff, mother (at bedside), and Dr. Pruitt Discharge Planning Pt being evaluated by [facility]. Discussed with CM about placement. CM stated discussions ongoing between [facility] and [facility] for possible transfer. Problem Qualifiers (1) CVA (cerebral vascular accident): (2) DM (diabetes mellitus): Javier Harris Jr. Mar 13, 2017 12:30
[2017-03-13] MEDS: ACETAMINOPHEN/CODEINE ELIX 120 MG/12 MG/5 ML CUP G-TUBE PRN (13:51)
[2017-03-13] MEDS: SENNOSIDES SYRUP 8.8 MG/5 ML CUP PEG SCH (13:59)
[2017-03-13] MEDS: VANCOMYCIN 1,500 MG/NS 500 ML IV SCH ×2 (14:25)
--- NOTE | 2017-03-13 15:09 | PD.ONC.PN ---
Subjective Subjective Remarks Afebrile. Multiple family members at bedside Patient's ex- feels as though he may be having headaches No definitive decision as of yet for XRT. Objective Data Date Time Temp Pulse Resp B/P (MAP) Pulse Ox O2 Delivery O2 Flow Rate FiO2 03/13/17 12:00 97.6 105 16 108/66 (80) 100 03/13/17 08:00 95.5 104 16 119/73 (88) 100 03/13/17 07:21 T-Piece 28 03/13/17 00:00 98.4 99 18 103/68 (80) 100 03/12/17 22:00 Trach Collar 28 03/12/17 20:00 97.9 96 18 120/68 (85) 100 03/12/17 15:43 98.5 103 20 111/64 (80) 97 03/13/17 03/13/17 03/13/17 06:59 14:59 22:59 Intake Total 727 ml Output Total 1500 ml Balance -773 ml Result Diagram: 03/10/17 1220 03/12/17 0443 Laboratory Results Laboratory Tests Test 03/13/17 06:44 Random Vancomycin Level 19.8 COMMENT Culture Results Microbiology Date/Time Source Procedure Growth Status 03/13/17 12:38 Wound Abdomen Gram Stain Pending Received 03/13/17 12:38 Wound Abdomen Wound Culture Pending Received Administered Medications Medications (Trade) Dose Ordered Sig/Junior Route PRN Reason Start Time Stop Time Status Last Admin Dose Admin IV Flush (NS Flush) 2 ml UNSCH PRN IVF FLUSH AFTER USING IV ACCESS 12/21/15 06:00 09/28/16 21:18 Levetriacetam (Keppra Liq) 500 mg Q12HR TUBE 12/27/15 21:00 03/13/17 07:23 Acetaminophen (Tylenol 650 Mg/ 20 ml Liq) 650 mg Q6H PRN TUBE TEMP >100.4 12/30/15 15:15 01/18/17 21:34 Nystatin (Mycostatin Powder) 1 applic Q12HR TOPICAL 01/08/16 21:00 03/13/17 07:23 Acetic Acid (Acetic Acid 0.25% Irr Btl) 10 ml Q8HR IRRIGATION 02/05/16 16:00 03/13/17 13:52 Paroxetine HCl (Paxil Liq) 20 mg DAILY@1900 PEG 03/12/16 19:00 Future hold 03/12/17 17:48 Ondansetron HCl (Zofran Inj) 4 mg Q6HR PRN IV PUSH nausea/vomiting 04/14/16 19:45 08/10/16 10:16 Levalbuterol HCl (Xopenex Neb) 0.63 mg Q4HR NEB PRN NEB SHORTNESS OF BREATH 05/05/16 12:00 03/06/17 10:45 Aspirin (Aspirin) 325 mg DAILY TUBE 05/27/16 11:40 Future Hold 02/25/17 08:28 Heparin Sodium (Porcine) (Heparin Inj) 5,000 units Q8HR SQ 06/11/16 14:00 Future hold 03/13/17 13:51 Bacitracin (Baciguent Oint) 1 applic BID TOP 07/20/16 10:00 03/13/17 07:24 Sodium Chloride ([place]el Angel [place]) 1 spray BID NASAL 08/01/16 21:00 03/13/17 07:24 Artificial Tears (Tears Naturale Opth Soln) 1 drop BID EACH EYE 09/05/16 21:00 03/13/17 07:25 Morphine Sulfate (Morphine Inj) 1 mg Q24H PRN IV PUSH dressing change 30 min before 09/17/16 14:30 10/22/16 02:00 Bisacodyl (Dulcolax Supp) 10 mg DAILY PRN RECTAL SEVERE CONSTIPATION IF NOT PO 09/26/16 15:30 12/08/16 09:17 Acetaminophen/ Codeine Phosphate (Tylenol - Codeine 120-12 Liq) 5 ml Q4H PRN G-TUBE pain 2-10 12/27/16 15:30 03/13/17 13:51 Loperamide HCl (Imodium Liq) 2 mg Q6H PRN PEG DIARRHEA 12/27/16 15:30 01/24/17 20:05 Magnesium Hydroxide (Milk Of Magnesia Liq) 30 ml DAILY PRN PEG mild-moderate constipation 12/27/16 15:30 02/11/17 08:46 Magnesium Hydroxide (Milk Of Magnesia Liq) 30 ml DAILY PEG 12/28/16 09:00 Future Hold 01/19/17 08:44 Sennosides (Senna Liq) 8.8 mg DAILY@1600 PEG 12/27/16 16:00 03/10/17 17:41 Diltiazem HCl (Cardizem) 30 mg QID PEG 01/09/17 18:00 03/13/17 07:21 Lansoprazole (Prevacid Odt) 30 mg BID NG 01/26/17 21:00 03/13/17 07:21 Arginine HCl (Ashish Powder) 1 pack BID G-TUBE 02/10/17 21:00 03/13/17 07:25 Ferrous Sulfate (Ferrous Sulfate Liq) 300 mg DAILY PO 02/14/17 09:00 03/13/17 07:21 Ascorbic Acid (Vitamin C) 1,000 mg DAILY PO 02/14/17 09:00 03/13/17 07:32 Bacitracin (Bacitracin Oint Packet) 0.9 gm DAILY TOPICAL 02/25/17 09:00 03/13/17 07:26 Hyoscyamine Sulfate (Levsin) 0.25 mg Q8H G-TUBE 03/09/17 22:00 04/08/17 21:59 03/13/17 13:51 Vancomycin HCl 1500 mg/Sodium Chloride 515 ml @ 257.5 mls/ hr Q24H IV 03/13/17 15:00 03/13/17 14:25 Objective Remarks GENERAL: Chronically ill patient resting in bed in no distress. SKIN: Warm and dry. HEAD: Normocephalic. EYES: No injection or drainage. NECK: Supple, trach placed midline. CARDIOVASCULAR: Regular rate and rhythm without murmurs. RESPIRATORY: Scattered rhonchi anteriorly. GASTROINTESTINAL: Abdomen soft, non-tender, nondistended. EXTREMITIES: No cyanosis, or edema. NEUROLOGICAL: Nonverbal. Not following commands. Assessment/Plan Problem List: (1) Bladder mass ICD Codes: N32.89 - Other specified disorders of bladder Status: Acute Plan: 03/13/17: Discussion held with multiple family members including the patient's son. He states he is talking to his sisters and they should have a decision either tonight or tomorrow morning if they're planing to pursue radiation. 03/12/17: The patient's family is deciding whether or not to pursue XRT. 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 This is likely to spread, and the radiation therapy would be only palliative in nature. 03/11/17: The pt's CT chest was negative for malignancy. Will consult radiation oncology to evaluate for XRT to bladder mass. Pt is not a candidate for chemotherapy. Workup: The pt developed hematuria while inpatient and imaging found a 5.4x3.5cm bladder mass. Pathology showed small cell carcinoma. CT chest negative for malignancy. Palliative care saw the pt again and have discuss with the family. Family wants everything done. (2) Non-Hodgkin lymphoma ICD Codes: C85.90 - Non-Hodgkin lymphoma, unspecified, unspecified site Status: Chronic Plan: no evidence of recurrence Assessment 61 y/o male with prolonged hospitalization found to have a bladder mass. Attending Statement Nothing new I have discussed with the patient's daughter over the phone Who has the power of workers compensation defense attorney. She does not want him to have any chemotherapy. She in the rest of the family will decide about the radiation treatment I called his ex- But no answer I left a message. The exam, history, and the medical decision-making described in the above note were completed with the assistance of the mid-level provider. I reviewed and agree with the findings presented. I attest that I had a [id number] encounter with the patient on the same day, and personally performed and documented my assessment and findings in the medical record. Lynne Castañeda Mar 13, 2017 15:09 Ed Whyte MD Mar 14, 2017 05:39
[2017-03-13 16:00] VITALS: BP 109/66; PULSE 106; RESP 24; TEMP 98.1; O2SAT 100
--- NOTE | 2017-03-13 17:09 | HHI.PR ---
Subjective Remarks ass OPENS EYES NO DISTRESS o2 sat 95% cystoscopy and biopsy small cell CA Objective Vital Signs Date Time Temp Pulse Resp B/P (MAP) Pulse Ox O2 Delivery O2 Flow Rate FiO2 03/13/17 16:00 98.1 106 24 109/66 (80) 100 03/13/17 12:00 97.6 105 16 108/66 (80) 100 03/13/17 08:00 95.5 104 16 119/73 (88) 100 03/13/17 07:21 T-Piece 28 03/13/17 00:00 98.4 99 18 103/68 (80) 100 03/12/17 22:00 Trach Collar 28 03/12/17 20:00 97.9 96 18 120/68 (85) 100 I/O 03/12/17 03/12/17 03/12/17 03/13/17 03/13/17 03/13/17 07:00 15:00 23:00 07:00 15:00 23:00 Intake Total 922 ml 250 ml 1040 ml 727 ml Output Total 1500 ml 1050 ml 1500 ml Balance -578 ml 250 ml -10 ml -773 ml Intake Oral 0 ml 0 ml 0 ml IV Total 250 ml Tube Feeding 562 ml 620 ml 647 ml Tube Irrigant 120 ml 80 ml Other 360 ml 300 ml Output Urine Total 1500 ml 1050 ml 1500 ml # Bowel Movements 2 2 Result Diagram: 03/10/17 1220 03/12/17 0443 Procedures 01/02/16 PEG placement 01/02/16 tracheostomy 07/22/2016 Wide excision of sacral skin wound, biopsy of the cavity lining and debridement. PEG tube replacement 07/29/16 Objective Remarks GENERAL: SKIN: Warm and dry. HEAD: Atraumatic. Normocephalic. EYES: Pupils equal and round. No scleral icterus. No injection or drainage. ENT: No nasal bleeding or discharge. Mucous membranes pink and moist. NECK: Trachea midline. No JVD. CARDIOVASCULAR: Regular rate and rhythm. RESPIRATORY: No accessory muscle use. Clear to auscultation. Breath sounds equal bilaterally. GASTROINTESTINAL: Abdomen soft, non-tender, nondistended. Hepatic and splenic margins not palpable. MUSCULOSKELETAL: Extremities without clubbing, cyanosis, or edema. No obvious deformities. NEUROLOGICAL: Awake and alert. No obvious cranial nerve deficits. Motor grossly within normal limits. Five out of 5 muscle strength in the arms and legs. Normal speech. PSYCHIATRIC: Appropriate mood and affect; insight and judgment normal. Laboratory Tests Test 01/05/17 01/06/17 08:35 08:41 Red Blood Count 4.43 MIL/MM3 (4.50-5.90) Hemoglobin 9.9 GM/DL (13.0-17.0) Hematocrit 32.0 % (39.0-51.0) Mean Corpuscular Volume 72.1 FL (80.0-100.0) Mean Corpuscular Hemoglobin 22.3 PG (27.0-34.0) Mean Corpuscular Hemoglobin 30.9 % Concent (32.0-36.0) Red Cell Distribution Width 19.9 % (11.6-17.2) Sodium Level 134 MEQ/L 133 MEQ/L (136-145) (136-145) Random Glucose 136 MG/DL 132 MG/DL (74-106) (74-106) Creatinine 0.59 MG/DL (0.60-1.30) GENERAL: SKIN: Warm and dry. HEAD: Atraumatic. Normocephalic. EYES: Pupils equal and round. No scleral icterus. No injection or drainage. ENT: No nasal bleeding or discharge. Mucous membranes pink and moist. NECK: Trachea midline. No JVD. TRACH. [place] CARDIOVASCULAR: Regular rate and rhythm. RESPIRATORY: No accessory muscle use. Clear to auscultation. Breath sounds equal bilaterally. GASTROINTESTINAL: Abdomen soft, non-tender, nondistended. Hepatic and splenic margins not palpable. MUSCULOSKELETAL: Extremities without clubbing, cyanosis, or edema. No obvious deformities. NEUROLOGICAL: Awake and alert. No obvious cranial nerve deficits. Motor grossly within normal limits. Five out of 5 muscle strength in the arms and legs. Normal speech. PSYCHIATRIC: Appropriate mood and affect; insight and judgment normal. 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 TOILET RT CONSULT PENDING Brandon Taylor MD Mar 13, 2017 17:09
[2017-03-13] MEDS: PARoxetine HCL SUSP 20 MG/10 ML UDC PEG SCH (18:08)
[2017-03-13 20:00] VITALS: BP 119/66; PULSE 104; RESP 18; TEMP 99.4; O2SAT 100
[2017-03-13] MEDS: LOPERAMIDE HCL SOLN 2 MG/10 ML UDC PEG PRN (20:30)
[2017-03-13 20:40] VITALS: O2SAT 100
[2017-03-14] VITALS (7 sets, daily range): BP systolic 108–130; BP diastolic 64–75; PULSE 98–105; RESP 18–20; TEMP 97–99.4; O2SAT 95–100
[2017-03-14] MEDS: HYOSCYAMINE 0.125 MG TAB G-TUBE SCH ×3 (04:42→21:07)
[2017-03-14] MEDS: ACETIC ACID 0.25% SOLN 1000 ML IRR BTL IRRIGATION SCH ×3 (04:43→21:07)
[2017-03-14] MEDS: HEPARIN SODIUM - SQ 10,000 UNITS/ML VIAL SQ SCH ×3 (04:43→22:06)
[2017-03-14] MEDS: SODIUM CHLORIDE 0.65% NASAL SPRAY 45 ML BTL NASAL SCH ×2 (07:41→21:00)
[2017-03-14] MEDS: ARTIFICIAL TEARS OPTH SOLN 15 ML BTL EACH EYE SCH ×2 (07:41→21:05)
[2017-03-14] MEDS: NYSTATIN 100,000 U/GM PWD 15 GM BTL TOPICAL SCH ×2 (07:42→21:00)
[2017-03-14] MEDS: BACITRACIN OINT 0.9 GM PKT TOPICAL SCH (07:42)
[2017-03-14] MEDS: BACITRACIN TOP OINT 15 GM TUBE TOP SCH ×2 (07:42→21:00)
[2017-03-14] MEDS: DILTIAZEM HCL 30 MG TAB PEG SCH ×4 (07:43→22:06)
[2017-03-14] MEDS: ASCORBIC ACID 500 MG TAB PO SCH (07:43)
[2017-03-14] MEDS: LANSOPRAZOLE SOLUTAB 30 MG TAB NG SCH ×2 (07:43→21:04)
[2017-03-14] MEDS: FERROUS SULFATE 300 MG /5ML UDC PO SCH (07:43)
[2017-03-14] MEDS: levETIRAcetam 500 MG/5 ML UDC TUBE SCH ×2 (07:43→21:03)
[2017-03-14] MEDS: JUVEN POWDER 1 PACK G-TUBE SCH ×2 (07:56→21:00)
--- NOTE | 2017-03-14 08:24 | HHI.PR ---
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 Objective Vital Signs Date Time Temp Pulse Resp B/P (MAP) Pulse Ox O2 Delivery O2 Flow Rate FiO2 03/14/17 04:00 97.7 03/14/17 00:00 99.4 103 18 108/64 (79) 100 03/13/17 20:40 100 T-Piece 28 03/13/17 20:40 100 T-piece 5.00 28 03/13/17 20:00 99.4 104 18 119/66 (83) 100 03/13/17 16:00 98.1 106 24 109/66 (80) 100 03/13/17 12:00 97.6 105 16 108/66 (80) 100 I/O 03/13/17 03/13/17 03/13/17 03/14/17 03/14/17 03/14/17 07:00 15:00 23:00 07:00 15:00 23:00 Intake Total 727 ml 1700 ml 1100 ml Output Total 1500 ml 1200 ml 775 ml Balance -773 ml 500 ml 325 ml Intake Oral 0 ml 0 ml 0 ml IV Total 515 ml Tube Feeding 647 ml 700 ml 550 ml Tube Irrigant 80 ml 160 ml 550 ml Other 325 ml Output Urine Total 1500 ml 1200 ml 775 ml # Bowel Movements 2 2 0 Result Diagram: 03/10/17 1220 03/14/17 0536 Procedures 01/02/16 PEG placement 01/02/16 tracheostomy 07/22/2016 Wide excision of sacral skin wound, biopsy of the cavity lining and debridement. PEG tube replacement 07/29/16 Objective Remarks GENERAL: SKIN: Warm and dry. HEAD: Atraumatic. Normocephalic. EYES: Pupils equal and round. No scleral icterus. No injection or drainage. ENT: No nasal bleeding or discharge. Mucous membranes pink and moist. NECK: Trachea midline. No JVD. CARDIOVASCULAR: Regular rate and rhythm. RESPIRATORY: No accessory muscle use. Clear to auscultation. Breath sounds equal bilaterally. GASTROINTESTINAL: Abdomen soft, non-tender, nondistended. Hepatic and splenic margins not palpable. MUSCULOSKELETAL: Extremities without clubbing, cyanosis, or edema. No obvious deformities. NEUROLOGICAL: Awake and alert. No obvious cranial nerve deficits. Motor grossly within normal limits. Five out of 5 muscle strength in the arms and legs. Normal speech. PSYCHIATRIC: Appropriate mood and affect; insight and judgment normal. Laboratory Tests Test 01/05/17 01/06/17 08:35 08:41 Red Blood Count 4.43 MIL/MM3 (4.50-5.90) Hemoglobin 9.9 GM/DL (13.0-17.0) Hematocrit 32.0 % (39.0-51.0) Mean Corpuscular Volume 72.1 FL (80.0-100.0) Mean Corpuscular Hemoglobin 22.3 PG (27.0-34.0) Mean Corpuscular Hemoglobin 30.9 % Concent (32.0-36.0) Red Cell Distribution Width 19.9 % (11.6-17.2) Sodium Level 134 MEQ/L 133 MEQ/L (136-145) (136-145) Random Glucose 136 MG/DL 132 MG/DL (74-106) (74-106) Creatinine 0.59 MG/DL (0.60-1.30) GENERAL: SKIN: Warm and dry. HEAD: Atraumatic. Normocephalic. EYES: Pupils equal and round. No scleral icterus. No injection or drainage. ENT: No nasal bleeding or discharge. Mucous membranes pink and moist. NECK: Trachea midline. No JVD. TRACH. [place] CARDIOVASCULAR: Regular rate and rhythm. RESPIRATORY: No accessory muscle use. Clear to auscultation. Breath sounds equal bilaterally. GASTROINTESTINAL: Abdomen soft, non-tender, nondistended. Hepatic and splenic margins not palpable. MUSCULOSKELETAL: Extremities without clubbing, cyanosis, or edema. No obvious deformities. NEUROLOGICAL: Awake and alert. No obvious cranial nerve deficits. Motor grossly within normal limits. Five out of 5 muscle strength in the arms and legs. Normal speech. PSYCHIATRIC: Appropriate mood and affect; insight and judgment normal. 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 TOILET RT CONSULT PENDING Brandon Taylor MD Mar 14, 2017 08:24
--- NOTE | 2017-03-14 09:28 | PD.ONC.PN ---
Subjective Subjective Remarks Afebrile overnight No gross hematuria Pt's mother at bedside asking me to "pray for her son" Getting MRI of the brain today Objective Data Date Time Temp Pulse Resp B/P (MAP) Pulse Ox O2 Delivery O2 Flow Rate FiO2 03/14/17 08:00 97.0 105 18 130/75 (93) 98 03/14/17 08:00 98 Mechanical Ventilator 6.00 28 Trach Collar T-Piece 03/14/17 04:00 97.7 03/14/17 00:00 99.4 103 18 108/64 (79) 100 03/13/17 20:40 100 T-Piece 28 03/13/17 20:40 100 T-piece 5.00 28 03/13/17 20:00 99.4 104 18 119/66 (83) 100 03/13/17 16:00 98.1 106 24 109/66 (80) 100 03/13/17 12:00 97.6 105 16 108/66 (80) 100 03/14/17 03/14/17 03/14/17 07:00 15:00 23:00 Intake Total 1100 ml Output Total 775 ml Balance 325 ml Result Diagram: 03/10/17 1220 03/14/17 0536 Laboratory Results Laboratory Tests Test 03/14/17 05:36 Creatinine 0.98 MG/DL Estimat Glomerular Filtration Rate 78 ML/MIN Culture Results Microbiology Date/Time Source Procedure Growth Status 03/13/17 12:38 Wound Abdomen Gram Stain - Final Resulted 03/13/17 12:38 Wound Abdomen Wound Culture Pending Resulted Administered Medications Medications (Trade) Dose Ordered Sig/Junior Route PRN Reason Start Time Stop Time Status Last Admin Dose Admin IV Flush (NS Flush) 2 ml UNSCH PRN IVF FLUSH AFTER USING IV ACCESS 12/21/15 06:00 09/28/16 21:18 Levetriacetam (Keppra Liq) 500 mg Q12HR TUBE 12/27/15 21:00 03/14/17 07:43 Acetaminophen (Tylenol 650 Mg/ 20 ml Liq) 650 mg Q6H PRN TUBE TEMP >100.4 12/30/15 15:15 01/18/17 21:34 Nystatin (Mycostatin Powder) 1 applic Q12HR TOPICAL 01/08/16 21:00 03/14/17 07:42 Acetic Acid (Acetic Acid 0.25% Irr Btl) 10 ml Q8HR IRRIGATION 02/05/16 16:00 03/14/17 04:43 Paroxetine HCl (Paxil Liq) 20 mg DAILY@1900 PEG 03/12/16 19:00 Future hold 03/13/17 18:08 Ondansetron HCl (Zofran Inj) 4 mg Q6HR PRN IV PUSH nausea/vomiting 04/14/16 19:45 08/10/16 10:16 Levalbuterol HCl (Xopenex Neb) 0.63 mg Q4HR NEB PRN NEB SHORTNESS OF BREATH 05/05/16 12:00 03/06/17 10:45 Aspirin (Aspirin) 325 mg DAILY TUBE 05/27/16 11:40 Future Hold 02/25/17 08:28 Heparin Sodium (Porcine) (Heparin Inj) 5,000 units Q8HR SQ 06/11/16 14:00 Future hold 03/14/17 04:43 Bacitracin (Baciguent Oint) 1 applic BID TOP 07/20/16 10:00 03/14/17 07:42 Sodium Chloride ([place] [employer]) 1 spray BID NASAL 08/01/16 21:00 03/14/17 07:41 Artificial Tears (Tears Naturale Opth Soln) 1 drop BID EACH EYE 09/05/16 21:00 03/14/17 07:41 Morphine Sulfate (Morphine Inj) 1 mg Q24H PRN IV PUSH dressing change 30 min before 09/17/16 14:30 10/22/16 02:00 Bisacodyl (Dulcolax Supp) 10 mg DAILY PRN RECTAL SEVERE CONSTIPATION IF NOT PO 09/26/16 15:30 12/08/16 09:17 Acetaminophen/ Codeine Phosphate (Tylenol - Codeine 120-12 Liq) 5 ml Q4H PRN G-TUBE pain 2-10 12/27/16 15:30 03/13/17 13:51 Loperamide HCl (Imodium Liq) 2 mg Q6H PRN PEG DIARRHEA 12/27/16 15:30 03/13/17 20:30 Magnesium Hydroxide (Milk Of Magnesia Liq) 30 ml DAILY PRN PEG mild-moderate constipation 12/27/16 15:30 02/11/17 08:46 Magnesium Hydroxide (Milk Of Magnesia Liq) 30 ml DAILY PEG 12/28/16 09:00 Future Hold 01/19/17 08:44 Sennosides (Senna Liq) 8.8 mg DAILY@1600 PEG 12/27/16 16:00 03/10/17 17:41 Diltiazem HCl (Cardizem) 30 mg QID PEG 01/09/17 18:00 03/14/17 07:43 Lansoprazole (Prevacid Odt) 30 mg BID NG 01/26/17 21:00 03/14/17 07:43 Arginine HCl (Ashish Powder) 1 pack BID G-TUBE 02/10/17 21:00 03/14/17 07:56 Ferrous Sulfate (Ferrous Sulfate Liq) 300 mg DAILY PO 02/14/17 09:00 03/14/17 07:43 Ascorbic Acid (Vitamin C) 1,000 mg DAILY PO 02/14/17 09:00 03/14/17 07:43 Bacitracin (Bacitracin Oint Packet) 0.9 gm DAILY TOPICAL 02/25/17 09:00 03/14/17 07:42 Hyoscyamine Sulfate (Levsin) 0.25 mg Q8H G-TUBE 03/09/17 22:00 04/08/17 21:59 03/14/17 04:42 Vancomycin HCl 1500 mg/Sodium Chloride 515 ml @ 257.5 mls/ hr Q24H IV 03/13/17 15:00 03/13/17 14:25 Objective Remarks GENERAL: Chronically ill patient resting in bed in no distress. SKIN: Warm and dry. HEAD: Normocephalic. EYES: No injection or drainage. NECK: Supple, trach placed midline. CARDIOVASCULAR: Regular rate and rhythm without murmurs. RESPIRATORY: Scattered rhonchi anteriorly. GASTROINTESTINAL: Abdomen soft, non-tender, nondistended. GENITOURINARY: Clear yellow urine noted in bag. EXTREMITIES: No cyanosis, or edema. NEUROLOGICAL: Nonverbal. Not following commands. Assessment/Plan Problem List: (1) Bladder mass ICD Codes: N32.89 - Other specified disorders of bladder Status: Acute Plan: 03/14/17: No decision as of yet. MRI of the brain ordered, as family members perceive that he is having headaches. Await results 03/13/17: Discussion held with multiple family members including the patient's son. He states he is talking to his sisters and they should have a decision either tonight or tomorrow morning if they're planing to pursue radiation. 03/12/17: The patient's family is deciding whether or not to pursue XRT. 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 This is likely to spread, and the radiation therapy would be only palliative in nature. 03/11/17: The pt's CT chest was negative for malignancy. Will consult radiation oncology to evaluate for XRT to bladder mass. Pt is not a candidate for chemotherapy. Workup: The pt developed hematuria while inpatient and imaging found a 5.4x3.5cm bladder mass. Pathology showed small cell carcinoma. CT chest negative for malignancy. Palliative care saw the pt again and have discuss with the family. Family wants everything done. (2) Non-Hodgkin lymphoma ICD Codes: C85.90 - Non-Hodgkin lymphoma, unspecified, unspecified site Status: Chronic Plan: no evidence of recurrence Assessment 61 y/o male with prolonged hospitalization found to have a bladder mass. Attending Statement Nothing new. MRI brain = neg family to decide XRT The exam, history, and the medical decision-making described in the above note were completed with the assistance of the mid-level provider. I reviewed and agree with the findings presented. I attest that I had a [id number] encounter with the patient on the same day, and personally performed and documented my assessment and findings in the medical record. Lynne Castañeda Mar 14, 2017 09:28 Ed Whyte MD Mar 14, 2017 18:06
--- NOTE | 2017-03-14 11:27 | PD.WCN.NOT ---
Wound Consult Description: Follow up of wound wound to coccyx area Communicated with: CHAPITO duggan Recommendation: Recommend to continue dressing changes as ordered for sacral wound. Additional Information: Patient was positioned to his left side after placing tube feed on hold, with maximum assist of [place] and automobile and property underwriter.ABD pad and gauze removed from buttocks to reveal a full thickness skin loss to sacral/coccyx area with ~5% visualized bone and ~95% red vascular shiny non granulating tissue, likely muscle. Wound measures 3cm x 1.8cm x 3cm with circumferential undermining with deepest measuring 4.2cm @ 9 o'clock. Minimal sanguinous drainage noted when cleansed with wound cleanser and gauze. Wound was lightly and gently packed with Povidone-Iodine moistened rolled gauze, periwound sprayed with Cavilon skin prep, and covered with abd pad secured with tape. Calazime barrier cream applied to erythema noted to lower buttock and scrotal area. Carmen Hsieh [facility] Mar 14, 2017 11:27
--- NOTE | 2017-03-14 11:42 | HHI.PR ---
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 Pt seen and examined. Pt non-verbal. Per mother at bedside, she noted wound at peg site, with some drainage. Per nursing ([place]) wound being treated with antibiotic cream; no discharge reported. Blood pressure reported to be elevated for pt (still WNL), medication given early. Afebrile. Otherwise, no new issues reported overnight or since start of shift. Per RN pt was seen by wound care this morning. Objective Vitals Vital Signs Date Time Temp Pulse Resp B/P (MAP) Pulse Ox O2 Delivery O2 Flow Rate FiO2 03/14/17 08:00 97.0 105 18 130/75 (93) 98 03/14/17 08:00 98 Mechanical Ventilator 6.00 28 Trach Collar T-Piece 03/14/17 04:00 97.7 03/14/17 00:00 99.4 103 18 108/64 (79) 100 03/13/17 20:40 100 T-Piece 28 03/13/17 20:40 100 T-piece 5.00 28 03/13/17 20:00 99.4 104 18 119/66 (83) 100 03/13/17 16:00 98.1 106 24 109/66 (80) 100 03/13/17 12:00 97.6 105 16 108/66 (80) 100 I/O 03/13/17 03/13/17 03/13/17 03/14/17 03/14/17 03/14/17 07:00 15:00 23:00 07:00 15:00 23:00 Intake Total 727 ml 1700 ml 1100 ml Output Total 1500 ml 1200 ml 775 ml Balance -773 ml 500 ml 325 ml Intake Oral 0 ml 0 ml 0 ml IV Total 515 ml Tube Feeding 647 ml 700 ml 550 ml Tube Irrigant 80 ml 160 ml 550 ml Other 325 ml Output Urine Total 1500 ml 1200 ml 775 ml # Bowel Movements 2 2 0 Result Diagram: 03/10/17 1220 03/14/17 0536 Imaging Last Impressions Chest CT 03/10/17 0000 Signed Impressions: Service Date/Time: Friday, March 10, 2017 21:00 - CONCLUSION: 1. Periaortic soft tissue along the proximal descending thoracic aorta not previously seen. This represents either lymphomatous involvement or adjacent consolidated airspace disease. 2. Mild bilateral airspace disease 3. No evidence of significant lymphadenopathy involving the mediastinum, hilar regions, axillas or supraclavicular lore chain. 4. Tracheostomy tube in place. Ernesto Kulkarni MD Chest X-Ray 03/07/17 0000 Signed Impressions: Service Date/Time: Tuesday, March 07, 2017 10:24 - CONCLUSION: Mild streaky opacity at the lung bases most are cystic of atelectasis. Gerald Mukherjee MD Abdomen/Pelvis CT 02/27/17 0000 Signed Impressions: Service Date/Time: February 02:24 - CONCLUSION: 1. Abdominal aortic aneurysm. 2. Bladder mass is noted on the right posteriorly with apparent extravesical extension and clot formation. 3. Left renal cyst. 4. Left lower lobe atelectasis. 5. Large sacral decubitus ulcer with bony destruction and sclerosis of the sacrum mid to left lateral portion in the region of S3 and inferiorly which would suggest chronic osteomyelitis in the appropriate clinical setting. Rajan Granados MD Soft Tissue Ultrasound 02/26/17 0000 Signed Impressions: Service Date/Time: Sunday, February 26, 2017 12:52 - CONCLUSION: 1. Just inferior to the G-tube in the left abdomen, there is a superficial 3.8 x 2.9 0.9 cm complex fluid collection in the subcutaneous tissues. 2. Findings are nonspecific. This could represent a small seroma or abscess. Would consider CT scan of the abdomen without contrast for further evaluation to determine if there is intraperitoneal extension. Bobby Gray MD Gastrostomy Tube Placement 02/25/17 0000 Signed Impressions: Service Date/Time: Saturday, February 25, 2017 14:19 - CONCLUSION: Uncomplicated exchange of gastroenteric feeding tube for gastrostomy tube as above. Positioning confirmed. The tube can be used immediately. Glen Zamora MD Tube Change 02/14/17 0000 Signed Impressions: Service Date/Time: Tuesday, February 14, 2017 00:00 - CONCLUSION: Uncomplicated gastrojejunostomy tube exchange as above. Scott Griffin MD Head CT 01/09/17 0000 Signed Impressions: Service Date/Time: December 17:43 - CONCLUSION: 1. No acute hemorrhage or mass effect. 2. 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 3. Atrophy. Gerald Mukherjee MD CT Angiography 01/09/17 0000 Signed Impressions: Service Date/Time: December 17:49 - CONCLUSION: 1. No evidence of pulmonary emboli. 2. Patchy consolidation in both posterior lower lobes right greater than left. This could represent pneumonia. 3. 2 small noncalcified pulmonary nodules which are nonspecific finding. Short-term CT followup is recommended beginning in 6 months with a noncontrast outpatient CT. Gerald Mukherjee MD Tube Check 12/04/16 0000 Signed Impressions: Service Date/Time: Sunday, December 04, 2016 17:58 - CONCLUSION: Uncomplicated tube injection as above. the tube is in good position and functions normally. Moises Ramírez MD Abdomen X-Ray 08/31/16 0000 Signed Impressions: Service Date/Time: Wednesday, August 31, 2016 16:36 - CONCLUSION: 1. No acute findings. Mild constipation. Durga Dotson MD Head Magnetic Resonance Angiography 03/05/16 0000 Signed Impressions: Service Date/Time: Saturday, March 05, 2016 09:26 - CONCLUSION: Persistent high-grade subtotal occlusive stenotic lesions in the distal right vertebral artery and proximal basilar artery with significant improvement in flow and recanalization following initial presentation of thrombosis. Stable interstitial circulation without significant stenosis. Ernesto Kulkarni MD Brain MRI 03/05/16 0000 Signed Impressions: Service Date/Time: Saturday, March 05, 2016 09:26 - CONCLUSION: Evolving brainstem and bilateral occipital lobe infarcts with evidence of subacute hemorrhagic products. There is decreasing restricted diffusion and increasing loss of volume characteristic of a subacute to chronic infarct. No evidence of acute infarct, acute hemorrhage mass or edema. Ernesto Kulkarni MD Neck Magnetic Resonance Angiography 12/22/15 1445 Signed Impressions: Service Date/Time: Tuesday, December 22, 2015 09:22 - CONCLUSION: Variant origin of the left vertebral artery from the aortic arch. No evidence of carotid stenosis. Glen Zamora MD Head/Brain Mag Res Venography 12/22/15 0000 Signed Impressions: Service Date/Time: Tuesday, December 22, 2015 09:22 - CONCLUSION: Normal MRV. Jonel Jones Jr., MD Objective Remarks GENERAL: Pt encountered laying a bed, non-verbal, head turned to the left, but pt did turn head to the right when requested. SKIN: Warm and dry. Tattoo noted on right forearm. HEAD: Normocephalic. EYES: Non-icteric without injection or drainage. Pt did follow finger during cardinal gaze exam. NECK: Supple, trachea midline. T-tube in place. CARDIOVASCULAR: Regular rate and rhythm without murmurs, gallops, or rubs. RESPIRATORY: Breath sounds equal bilaterally. No accessory muscle use. Trach tube in place. Bedside monitor indicated oxygen saturation was 100%. GASTROINTESTINAL: Abdomen soft, non-tender, nondistended. GJ tube noted, gauze present in area around insertion. MUSCULOSKELETAL: No cyanosis, or edema. Bilateral lower leg SCD's present. PSYCHIATRIC: Pt non-verbal, he appeared calm and not in distress. He did follow limited commands. Procedures 07/22/2016 Wide excision of sacral skin wound, biopsy of the cavity lining and debridement. PEG removal and Gj tube placement 07/29/16 VAC changes- M-W-F 10/23/16, 11/18, 12/31- GJ tube replacement 01/02/16 PEG placement 01/02/16 tracheostomy 02/25/17 PEG replacement 03/03/17 Cystoscopy and palliative transurethral resection of bladder tumor greater than 5cm originating from the right bladder wall Medications and IVs Current Medications Medications (Trade) Dose Ordered Sig/Junior Route Start Time Stop Time Status Last Admin (NS Flush) 2 ml UNSCH PRN IVF 12/21/15 06:00 09/28/16 21:18 (Keppra Liq) 500 mg Q12HR TUBE 12/27/15 21:00 03/14/17 07:43 (Tylenol 650 Mg/ 20 ml Liq) 650 mg Q6H PRN TUBE 12/30/15 15:15 01/18/17 21:34 (Mycostatin Powder) 1 applic Q12HR TOPICAL 01/08/16 21:00 03/14/17 07:42 (Pill Splitter) 1 ea UNSCH PRN OTHER 01/14/16 08:30 (Acetic Acid 0.25% Irr Btl) 10 ml Q8HR IRRIGATION 02/05/16 16:00 03/14/17 04:43 (Paxil Liq) 20 mg DAILY@1900 PEG 03/12/16 19:00 Future hold 03/13/17 18:08 (Zofran Inj) 4 mg Q6HR PRN IV PUSH 04/14/16 19:45 08/10/16 10:16 (Xopenex Neb) 0.63 mg Q4HR NEB PRN NEB 05/05/16 12:00 03/06/17 10:45 (Aspirin) 325 mg DAILY TUBE 05/27/16 11:40 Future Hold 02/25/17 08:28 (Heparin Inj) 5,000 units Q8HR SQ 06/11/16 14:00 Future hold 03/14/17 04:43 (Baciguent Oint) 1 applic BID TOP 07/20/16 10:00 03/14/17 07:42 ([place]) 1 spray BID NASAL 08/01/16 21:00 03/14/17 07:41 (Tears Naturale Opth Soln) 1 drop BID EACH EYE 09/05/16 21:00 03/14/17 07:41 (Morphine Inj) 1 mg Q24H PRN IV PUSH 09/17/16 14:30 10/22/16 02:00 (Dulcolax Supp) 10 mg DAILY PRN RECTAL 09/26/16 15:30 12/08/16 09:17 (Tylenol - Codeine 120-12 Liq) 5 ml Q4H PRN G-TUBE 12/27/16 15:30 03/13/17 13:51 (Imodium Liq) 2 mg Q6H PRN PEG 12/27/16 15:30 03/13/17 20:30 (Milk Of Magnesia Liq) 30 ml DAILY PRN PEG 12/27/16 15:30 02/11/17 08:46 (Milk Of Magnesia Liq) 30 ml DAILY PEG 12/28/16 09:00 Future Hold 01/19/17 08:44 (Senna Liq) 8.8 mg DAILY@1600 PEG 12/27/16 16:00 03/10/17 17:41 (Lactulose Liq) 30 ml DAILY PRN PEG 12/27/16 15:30 (Cardizem) 30 mg QID PEG 01/09/17 18:00 03/14/17 07:43 (D50w (Vial) Inj) 50 ml UNSCH PRN IV 01/09/17 16:00 (Glucagon Inj) 1 mg UNSCH PRN OTHER 01/09/17 16:00 (Prevacid Odt) 30 mg BID NG 01/26/17 21:00 03/14/17 07:43 (Ashish Powder) 1 pack BID G-TUBE 02/10/17 21:00 03/14/17 07:56 (Ferrous Sulfate Liq) 300 mg DAILY PO 02/14/17 09:00 03/14/17 07:43 (Vitamin C) 1,000 mg DAILY PO 02/14/17 09:00 03/14/17 07:43 (Bacitracin Oint Packet) 0.9 gm DAILY TOPICAL 02/25/17 09:00 03/14/17 07:42 (Levsin) 0.25 mg Q8H G-TUBE 03/09/17 22:00 04/08/17 21:59 03/14/17 04:42 Pharmacy Profile Note 0 ml @ 0 mls/hr UNSCH OTHER 03/10/17 09:00 Vancomycin HCl 1500 mg/Sodium Chloride 515 ml @ 257.5 mls/ hr Q24H IV 03/13/17 15:00 03/13/17 14:25 Miscellaneous Information SPECIFIC LAB TO BE DRAWN:VANCOMYCIN TROUGH DATE TO... ONCE ONCE .XX 03/16/17 14:45 03/16/17 14:46 Urinary Catheter: Yes Assessment to: Continue Lopez insert reason: Prolonged Immobilization Date of Insertion: Mar 03, 2017 A/P Problem List: (1) CVA (cerebral vascular accident) ICD Code: I63.9 - Cerebral infarction, unspecified Status: Acute (2) A-fib ICD Code: I48.91 - Unspecified atrial fibrillation Status: Chronic (3) DM (diabetes mellitus) ICD Code: E11.9 - Type 2 diabetes mellitus without complications Status: Chronic Assessment and Plan Mr. Flores is 61 year-old male with past medical history of paroxysmal A. fib, hypertension, stage III non-Hodgkin's lymphoma status post chemotherapy who came into the hospital with altered mental status. Wound noted at peg site: culture and gram stain results pending. Treated with antibiotic cream. Cancer: Review of notes indicated family has not made a decision about cancer treatment. MRI of brain ordered, awaiting results. Family concerned pt is having headaches. Small cell Carcinoma: -Hematology/Oncology following -Interventional radiology consulted. -Urology has seen pt. -Palliative care consulted -Family to decide if radiation treatment will be undertaken. Gross Hematuria - Lopez change following cystoscopy procedure 03/03/17. - Hematuria resolved x 48hrs. Heparin and ASA resumed. No resumption of hematuria noted. - Urology Consult appreciated. Recommends flushing Lopez catheter. - CT of the abdomen showed bladder mass right posteriorly with apparent extravesical extension and clot formation. - Urology spoke with family member, daughter, states that he's not recommending biopsy of the bladder mass. However daughter insisted on biopsy. Patient s/p cystoscopy and palliative transurethral resection of bladder tumor greater than 5 cm originating from right bladder wall performed by Dr. Sewell . 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 Dr. Pruitt discussed at length with sister and daughter at the bedside who have requested consultations from Urology and Oncology to consider all the options available. Oncology consult placed. Requested nursing staff reach out to Dr. Springer to discuss results/options. - Oncology following - appreciate their assistance. Family requesting aggressive therapy. Difficult patient to treat with chemotherapy. Dr. Whyte who is familiar with the patient and treated his lymphoma in the past to see on Friday. - Discussed with sister palliative care consultation and she is agreeable. Order placed for palliative care consult. - H&H dropped to 7.4/24.3. Improved status post transfusion. Hemoglobin appears stable. - Continue to flush lopez catheter PRN. Abdominal wound/ lesion - Below the GJ incision site appears to be worsening as well as increased purulence around PEG site. Started on Vancomycin. Pharmacy to dose. Continue to monitor. May need bedside I&D. - Wound Care consulted and recommends leaving open to air, imaging soft tissue ultrasound. - Continue Bacitracin - Ultrasound soft tissue surrounding area for possible fluid collection that would need I & D. - Soft tissue ultrasound showed 1. Just inferior to that the tube in the left abdomen, there is a superficial 3.8 x 2.9 0.9 cm complex fluid collection in the subcutaneous tissue. 2. Findings are nonspecific. This could represent a small seroma or abscess. Would consider CT scan of the abdomen with contrast for further evaluation and determine if there is an intraperitoneal extension. - CT of the abdomen showed 1. Abdominal aortic aneurysm. 2. Bladder mass is noted on the right posteriorly with apparent extravesical extension and clot formation. 3. Left renal cyst. 4. Left lower lobe atelectasis. 5. Large sacral decubitus ulcer with bony disruption and sclerosis of the sacrum mid to left lateral portion in the region of S3 and inferiorly which would suggest chronic osteomyelitis in the appropriate clinical setting. - No intraperitoneal extension noted for the wound. 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 Intermittently tracks with eyes. - Continue Keppra 500mg BID for seizure prophylaxis. Keppra level 17.8. - PT/OT signed off as patient is unable to participate. - On Paxil 20 by mouth daily for depression. - On acetaminophen with codeine for pain scale of 2-10. - Morphine 1 mg every 24 hours when necessary for dressing change Chronic respiratory failure secondary to CVA - Status post tracheostomy. Continue pulmonary toilet and bronchodilators as needed. Continue trach care, suctioning. Increased secretions improved with scheduled Levsin. Decreased dosing of scheduled Levsin to q8h. Pulmonary toilet. Monitor. - Trach changed to size #6 XLT on 01/09 - Duo nebs every 4 hours while awake - Pulmonary currently following, appreciate assistance. - 01/09 CTA chest: No PE, bilateral lower lobe infiltrates. 4 mm right upper lobe/5 mm right middle lobe nodule. - CXR 02/22/17 reveals minimal atelectasis - CXR 03/07/17 showing mild streaky opacity at the lung bases with no focal consolidation or effusion. Right hallux ingrown toenail, paronychia- medial aspect 02/23/17 new area of paronychia right hallux ingrown toe nail lateral aspect - [employer] Worker has seen patient. I & D with partial nail avulsion performed at bedside 02/06/17. - Seen by podiatry. Plan is to aggressively cut the nail back. - Resolved Atrial fibrillation, controlled but more tachycardic Hypertension Dyslipidemia - Continue rate control with Cardizem and metoprolol. Increased tachycardia may be due to abdominal infection. Monitor. - Echocardiogram in November 2015 shows preserved ejection fraction. Coumadin discontinued secondary to bleeding. - Continue aspirin History of non-Hodgkin's lymphoma - Status post brain biopsy on December 13 by neurosurgery. Pathology consistent with acute infarct without evidence of lymphoma. Oncology has signed off. Diabetes mellitus Type 2 - Hemoglobin A1c is 5.5. - Fingersticks have been stable and were DC'd 02/01/17 Decubitus ulcer stage IV - Continue wound care, twice-daily dressing changes. Wound care recommendations last updated 12/12/16. Continue pressure relief measures including turning and positioning. Patient's family has declined a diverting colostomy. Previous Wound culture growing Klebsiella and Enterococcus Faecalis. Previously on Augmentin. Status post wide excision of sacral skin and biopsy of the cavity lining with debridement on 07/22/16. - Wound care last saw patient on 01/17/17, no new recommendations continue packing with Betadine moistened rolled Janis and covered with ABD pad and paper tape to secure. - Continue to monitor. Continue pressure-relief. - Morphine 1 mg every 24 hours when necessary for dressing change Protein calorie malnutrition Gastroesophageal reflux disease Gastric ulcer, reflux esophagitis Diarrhea, negative for C. difficile. Improved - EGD on 07/30/16 showed gastric ulcers. - On Prevacid 30 mg Q12, on tube feeds(Jevity 1.5 at 55 ml/hr) - Continue bowel regimen with hold parameters, Lactinex and Imodium. - G/J tube clogged, IR consulted to evaluate. Replaced on 02/25/17 - Reiterated proper G/J tube care and flush procedures. Discuss and explained with family. UTI pseudomonas aeruginosa Recurrent - Previous Repeat Ucx 08/28/16 negative. - 02/22/17 UA consistent with UTI - cultures pseudomonas, currently on Rocephin will change to cefepime since last culture was also Pseudomonas and was sensitive to cefepime. - Sensitivities came back, was switched over to Zosyn as cultures are not sensitive to cefepime. Completed. Klebsiella/Pseudomonas/staph aureus HCAP PSAE UTI - S/p Cefepime. Monitor for signs of infections. - strep pneumonia and Legionella urinary Ag is negative - C-diff PCR negative on 01/13 - 01/09 BC : Staph Epi, Urine cx: Pseudomonas, Sputum cx: Pseudomonas, kleb, Staph. - Patient was pancultured on 01/19 (Blood, sputum, urine) NGTD in urine and blood. Sputum + for pseudomonas. Hyponatremia - mild - IVF bolus - repeat labs ordered to monitor. DVT prophylaxis: SCDs. Heparin 5,000 units sq Q8hr Discussed with nursing staff, mother and pt's ex- (both at bedside), and Dr. Pruitt Discharge Planning Pt being evaluated by [facility]. Discussed with CM about placement. CM stated discussions ongoing between [facility] and [facility] for possible transfer. Problem Qualifiers (1) CVA (cerebral vascular accident): (2) DM (diabetes mellitus): Javier Harris Jr. Mar 14, 2017 11:42
[2017-03-14] MEDS: VANCOMYCIN 1,500 MG/NS 500 ML IV SCH ×2 (15:50)
--- NOTE | 2017-03-14 16:13 | RADRPT ---
EXAM DATE/TIME: 03/14/2017 12:41 [facility] COMPARISON: MRI BRAIN W/O CONTRAST, March 05, 2016, 9:26. MRI BRAIN W & W/O CONTRAST, January 16, 2016, 20:05. INDICATIONS : Metastatic disease. CONTRAST: 16 cc Omniscan (gadodiamide) IV MEDICAL HISTORY : Hypertension. Stroke Lymphoma. SURGICAL HISTORY : Brain biopsy. ENCOUNTER: Subsequent ACUITY: 4-6 months PAIN SCORE: Nonresponsive. LOCATION: Head TECHNIQUE: Multiplanar, multisequence MRI of the brain was performed both prior to and following the administration of paramagnetic contrast. FINDINGS: Examination quality is degraded by patient motion. There is generalized atrophy. Ventricles are abdulaziz l in size. On the flair and T2 signal change within the occipital lobes bilaterally has decreased. Th ere is also a decreased flair/T2 signal change within the colin. These areas also demonstrate less enh ancement. No restricted diffusion is identified. No definite blood products are identified. There is no new enhancing lesion. No midline shift or herniation is present. CONCLUSION: The signal abnormality and enhancement within the bilateral occipital lobes and colin have decreased since the prior examinations. No new abnormality is identified. There is no new enhanc ing area or signs of a recent ischemia. Glen Gordon MD on March 14, 2017 at 16:05 Board Certified Radiologist. This report was verified electronically.
[2017-03-14] MEDS: SENNOSIDES SYRUP 8.8 MG/5 ML CUP PEG SCH (17:07)
[2017-03-14] MEDS: PARoxetine HCL SUSP 20 MG/10 ML UDC PEG SCH (18:11)
[2017-03-15 00:09] VITALS: BP 106/64; PULSE 99; RESP 18; TEMP 98.9; O2SAT 97
[2017-03-15] MEDS: ACETIC ACID 0.25% SOLN 1000 ML IRR BTL IRRIGATION SCH ×3 (06:00→21:39)
[2017-03-15] MEDS: HYOSCYAMINE 0.125 MG TAB G-TUBE SCH ×3 (06:04→22:32)
[2017-03-15] MEDS: HEPARIN SODIUM - SQ 10,000 UNITS/ML VIAL SQ SCH ×3 (06:05→21:26)
[2017-03-15] MEDS: FERROUS SULFATE 300 MG /5ML UDC PO SCH (07:32)
[2017-03-15] MEDS: LANSOPRAZOLE SOLUTAB 30 MG TAB NG SCH ×2 (07:32→21:26)
[2017-03-15] MEDS: DILTIAZEM HCL 30 MG TAB PEG SCH ×4 (07:32→21:26)
[2017-03-15] MEDS: ASCORBIC ACID 500 MG TAB PO SCH (07:32)
[2017-03-15] MEDS: levETIRAcetam 500 MG/5 ML UDC TUBE SCH ×2 (07:33→21:25)
[2017-03-15] MEDS: BACITRACIN TOP OINT 15 GM TUBE TOP SCH ×2 (07:33→21:26)
[2017-03-15] MEDS: SODIUM CHLORIDE 0.65% NASAL SPRAY 45 ML BTL NASAL SCH ×2 (07:33→21:27)
[2017-03-15] MEDS: NYSTATIN 100,000 U/GM PWD 15 GM BTL TOPICAL SCH ×2 (07:33→21:28)
[2017-03-15] MEDS: JUVEN POWDER 1 PACK G-TUBE SCH ×2 (07:33→21:00)
[2017-03-15] MEDS: BACITRACIN OINT 0.9 GM PKT TOPICAL SCH (07:33)
[2017-03-15] MEDS: ARTIFICIAL TEARS OPTH SOLN 15 ML BTL EACH EYE SCH ×2 (07:33→21:26)
[2017-03-15] MEDS: ACETAMINOPHEN 650 MG/20.3 ML UDC TUBE PRN (11:27)
--- NOTE | 2017-03-15 11:42 | HHI.PR ---
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 Pt seen and examined. Pt non-verbal. Per ex-wfe (at bedside) she noted wound at peg site, seemed "worse." Discussed with family culture report indicated presence of Klebsiella Pneumoniae Per nursing (Glen) wound being treated with antibiotic cream and wound basin cleaner. Afebrile (temp noted to be 100 oral and 96 axillary). Otherwise, no new issues reported overnight or since start of shift. Per RN, family has decided to move forward with palliative radiation. RN (Glen) stated he spoke with the son Gerald Flores ([phone]) on the afternoon of 03/14/17. Ex- confirmed the information and said "he would be traveling here in the [place] this week" if contacted needed to be made to get permission to treat. Objective Vitals Vital Signs Date Time Temp Pulse Resp B/P (MAP) Pulse Ox O2 Delivery O2 Flow Rate FiO2 03/15/17 00:09 98.9 99 18 106/64 (78) 97 03/14/17 22:11 97 T-piece 5.00 28 03/14/17 20:00 97.8 98 20 120/72 (88) 95 03/14/17 20:00 T-Piece 28 Humidified 03/14/17 16:00 97.9 100 20 117/70 (86) 95 I/O 03/14/17 03/14/17 03/14/17 03/15/17 03/15/17 03/15/17 06:59 14:59 22:59 06:59 14:59 22:59 Intake Total 1100 ml 0 ml 847 ml Output Total 775 ml 400 ml 1800 ml Balance 325 ml -400 ml -953 ml Intake Oral 0 ml 0 ml 0 ml IV Total 0 ml Tube Feeding 550 ml 647 ml Tube Irrigant 550 ml Other 200 ml Output Urine Total 775 ml 400 ml 1800 ml # Bowel Movements 0 0 1 Result Diagram: 03/14/17 0536 Imaging Last Impressions Brain MRI 03/14/17 0000 Signed Impressions: Service Date/Time: Tuesday, March 14, 2017 12:41 - CONCLUSION: The signal abnormality and enhancement within the bilateral occipital lobes and colin have decreased since the prior examinations. No new abnormality is identified. There is no new enhancing area or signs of a recent ischemia. Glen Gordon MD Chest CT 03/10/17 0000 Signed Impressions: Service Date/Time: Friday, March 10, 2017 21:00 - CONCLUSION: 1. Periaortic soft tissue along the proximal descending thoracic aorta not previously seen. This represents either lymphomatous involvement or adjacent consolidated airspace disease. 2. Mild bilateral airspace disease 3. No evidence of significant lymphadenopathy involving the mediastinum, hilar regions, axillas or supraclavicular lore chain. 4. Tracheostomy tube in place. Ernesto Kulkarni MD Chest X-Ray 03/07/17 0000 Signed Impressions: Service Date/Time: Tuesday, March 07, 2017 10:24 - CONCLUSION: Mild streaky opacity at the lung bases most are cystic of atelectasis. Gerald Mukherjee MD Abdomen/Pelvis CT 02/27/17 0000 Signed Impressions: Service Date/Time: February 02:24 - CONCLUSION: 1. Abdominal aortic aneurysm. 2. Bladder mass is noted on the right posteriorly with apparent extravesical extension and clot formation. 3. Left renal cyst. 4. Left lower lobe atelectasis. 5. Large sacral decubitus ulcer with bony destruction and sclerosis of the sacrum mid to left lateral portion in the region of S3 and inferiorly which would suggest chronic osteomyelitis in the appropriate clinical setting. Rajan Granados MD Soft Tissue Ultrasound 02/26/17 0000 Signed Impressions: Service Date/Time: Sunday, February 26, 2017 12:52 - CONCLUSION: 1. Just inferior to the G-tube in the left abdomen, there is a superficial 3.8 x 2.9 0.9 cm complex fluid collection in the subcutaneous tissues. 2. Findings are nonspecific. This could represent a small seroma or abscess. Would consider CT scan of the abdomen without contrast for further evaluation to determine if there is intraperitoneal extension. Bobby Gray MD Gastrostomy Tube Placement 02/25/17 0000 Signed Impressions: Service Date/Time: Saturday, February 25, 2017 14:19 - CONCLUSION: Uncomplicated exchange of gastroenteric feeding tube for gastrostomy tube as above. Positioning confirmed. The tube can be used immediately. Glen Zamora MD Tube Change 02/14/17 0000 Signed Impressions: Service Date/Time: Tuesday, February 14, 2017 00:00 - CONCLUSION: Uncomplicated gastrojejunostomy tube exchange as above. Scott Griffin MD Head CT 01/09/17 0000 Signed Impressions: Service Date/Time: December 17:43 - CONCLUSION: 1. No acute hemorrhage or mass effect. 2. 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 3. Atrophy. Gerald Mukherjee MD CT Angiography 01/09/17 0000 Signed Impressions: Service Date/Time: December 17:49 - CONCLUSION: 1. No evidence of pulmonary emboli. 2. Patchy consolidation in both posterior lower lobes right greater than left. This could represent pneumonia. 3. 2 small noncalcified pulmonary nodules which are nonspecific finding. Short-term CT followup is recommended beginning in 6 months with a noncontrast outpatient CT. Gerald Mukherjee MD Tube Check 12/04/16 0000 Signed Impressions: Service Date/Time: Sunday, December 04, 2016 17:58 - CONCLUSION: Uncomplicated tube injection as above. the tube is in good position and functions normally. Moises Ramírez MD Abdomen X-Ray 08/31/16 0000 Signed Impressions: Service Date/Time: Wednesday, August 31, 2016 16:36 - CONCLUSION: 1. No acute findings. Mild constipation. Durga Dotson MD Head Magnetic Resonance Angiography 03/05/16 0000 Signed Impressions: Service Date/Time: Saturday, March 05, 2016 09:26 - CONCLUSION: Persistent high-grade subtotal occlusive stenotic lesions in the distal right vertebral artery and proximal basilar artery with significant improvement in flow and recanalization following initial presentation of thrombosis. Stable interstitial circulation without significant stenosis. Ernesto Kulkarni MD Neck Magnetic Resonance Angiography 12/22/15 1445 Signed Impressions: Service Date/Time: Tuesday, December 22, 2015 09:22 - CONCLUSION: Variant origin of the left vertebral artery from the aortic arch. No evidence of carotid stenosis. Glen Zamora MD Head/Brain Mag Res Venography 12/22/15 0000 Signed Impressions: Service Date/Time: Tuesday, December 22, 2015 09:22 - CONCLUSION: Normal MRV. Jonel Jones Jr., MD Objective Remarks GENERAL: Pt encountered laying a bed, non-verbal, head turned to the left, but pt did turn head to midline when requested. SKIN: Warm and dry. Tattoo noted on right forearm. HEAD: Normocephalic. EYES: Non-icteric without injection or drainage. Pt did follow finger during cardinal gaze exam. NECK: Supple, trachea midline. T-tube in place. CARDIOVASCULAR: Regular rate and rhythm without murmurs, gallops, or rubs. RESPIRATORY: Breath sounds equal bilaterally. No accessory muscle use. Trach tube in place. Bedside monitor indicated oxygen saturation was 100%. GASTROINTESTINAL: Abdomen soft, non-tender, nondistended. GJ tube noted, gauze present in area around insertion. Creamy fluid noted at site of previously observed wound. MUSCULOSKELETAL: No cyanosis, or edema. Bilateral lower leg SCD's present. PSYCHIATRIC: Pt non-verbal, he appeared calm and not in distress. He did follow limited commands: cardinal gaze and opened his mouth when asked to stick out his tongue. Procedures 07/22/2016 Wide excision of sacral skin wound, biopsy of the cavity lining and debridement. PEG removal and Gj tube placement 07/29/16 VAC changes- M-W-F 10/23/16, 11/18, 12/31- GJ tube replacement 01/02/16 PEG placement 01/02/16 tracheostomy 02/25/17 PEG replacement 03/03/17 Cystoscopy and palliative transurethral resection of bladder tumor greater than 5cm originating from the right bladder wall Medications and IVs Current Medications Medications (Trade) Dose Ordered Sig/Junior Route Start Time Stop Time Status Last Admin (NS Flush) 2 ml UNSCH PRN IVF 12/21/15 06:00 09/28/16 21:18 (Keppra Liq) 500 mg Q12HR TUBE 12/27/15 21:00 03/15/17 07:33 (Tylenol 650 Mg/ 20 ml Liq) 650 mg Q6H PRN TUBE 12/30/15 15:15 01/18/17 21:34 (Mycostatin Powder) 1 applic Q12HR TOPICAL 01/08/16 21:00 03/15/17 07:33 (Pill Splitter) 1 ea UNSCH PRN OTHER 01/14/16 08:30 (Acetic Acid 0.25% Irr Btl) 10 ml Q8HR IRRIGATION 02/05/16 16:00 03/15/17 06:00 (Paxil Liq) 20 mg DAILY@1900 PEG 03/12/16 19:00 Future hold 03/14/17 18:11 (Zofran Inj) 4 mg Q6HR PRN IV PUSH 04/14/16 19:45 08/10/16 10:16 (Xopenex Neb) 0.63 mg Q4HR NEB PRN NEB 05/05/16 12:00 03/06/17 10:45 (Aspirin) 325 mg DAILY TUBE 05/27/16 11:40 Future Hold 02/25/17 08:28 (Heparin Inj) 5,000 units Q8HR SQ 06/11/16 14:00 Future hold 03/15/17 06:05 (Baciguent Oint) 1 applic BID TOP 07/20/16 10:00 03/15/17 07:33 ([place]) 1 spray BID NASAL 08/01/16 21:00 03/15/17 07:33 (Tears Naturale Opth Soln) 1 drop BID EACH EYE 09/05/16 21:00 03/15/17 07:33 (Morphine Inj) 1 mg Q24H PRN IV PUSH 09/17/16 14:30 10/22/16 02:00 (Dulcolax Supp) 10 mg DAILY PRN RECTAL 09/26/16 15:30 12/08/16 09:17 (Tylenol - Codeine 120-12 Liq) 5 ml Q4H PRN G-TUBE 12/27/16 15:30 03/13/17 13:51 (Imodium Liq) 2 mg Q6H PRN PEG 12/27/16 15:30 03/13/17 20:30 (Milk Of Magnesia Liq) 30 ml DAILY PRN PEG 12/27/16 15:30 02/11/17 08:46 (Milk Of Magnesia Liq) 30 ml DAILY PEG 12/28/16 09:00 Future Hold 01/19/17 08:44 (Senna Liq) 8.8 mg DAILY@1600 PEG 12/27/16 16:00 03/14/17 17:07 (Lactulose Liq) 30 ml DAILY PRN PEG 12/27/16 15:30 (Cardizem) 30 mg QID PEG 01/09/17 18:00 03/15/17 07:32 (D50w (Vial) Inj) 50 ml UNSCH PRN IV 01/09/17 16:00 (Glucagon Inj) 1 mg UNSCH PRN OTHER 01/09/17 16:00 (Prevacid Odt) 30 mg BID NG 01/26/17 21:00 03/15/17 07:32 ([place] Powder) 1 pack BID G-TUBE 02/10/17 21:00 03/15/17 07:33 (Ferrous Sulfate Liq) 300 mg DAILY PO 02/14/17 09:00 03/15/17 07:32 (Vitamin C) 1,000 mg DAILY PO 02/14/17 09:00 03/15/17 07:32 (Bacitracin Oint Packet) 0.9 gm DAILY TOPICAL 02/25/17 09:00 03/15/17 07:33 (Levsin) 0.25 mg Q8H G-TUBE 03/09/17 22:00 04/08/17 21:59 03/15/17 06:04 Pharmacy Profile Note 0 ml @ 0 mls/hr UNSCH OTHER 03/10/17 09:00 Vancomycin HCl 1500 mg/Sodium Chloride 515 ml @ 257.5 mls/ hr Q24H IV 03/13/17 15:00 03/14/17 15:50 Miscellaneous Information SPECIFIC LAB TO BE DRAWN:VANCOMYCIN TROUGH DATE TO... ONCE ONCE .XX 03/16/17 14:45 03/16/17 14:46 Urinary Catheter: Yes Assessment to: Continue Lopez insert reason: Prolonged Immobilization Date of Insertion: Mar 03, 2017 A/P Problem List: (1) CVA (cerebral vascular accident) ICD Code: I63.9 - Cerebral infarction, unspecified Status: Acute (2) A-fib ICD Code: I48.91 - Unspecified atrial fibrillation Status: Chronic (3) DM (diabetes mellitus) ICD Code: E11.9 - Type 2 diabetes mellitus without complications Status: Chronic Assessment and Plan Mr. Flores is 61 year-old male with past medical history of paroxysmal A. fib, hypertension, stage III non-Hodgkin's lymphoma status post chemotherapy who came into the hospital with altered mental status. Wound noted at peg site: Klebsiella pneumoniae resulted. Treated with antibiotic cream and wound cleanser. Discussed with Dr. Lala, defer treatment to infectious disease, who has been re-consulted. Cancer: Family has made decision to move forward with palliative radiation therapy. Son Gerald can be reached at [phone] for consent. MRI of brain negative for acute findings/lesions. Small cell Carcinoma: -Hematology/Oncology following -Interventional radiology consulted. -Urology has seen pt. -Palliative care consulted -Family to decide if radiation treatment will be undertaken. -Family has decided to move forward with palliative radiation treatment. Gross Hematuria - Lopez change following cystoscopy procedure 03/03/17. - Hematuria resolved x 48hrs. Heparin and ASA resumed. No resumption of hematuria noted. - Urology Consult appreciated. Recommends flushing Lopez catheter. - CT of the abdomen showed bladder mass right posteriorly with apparent extravesical extension and clot formation. - Urology spoke with family member, daughter, states that he's not recommending biopsy of the bladder mass. However daughter insisted on biopsy. Patient s/p cystoscopy and palliative transurethral resection of bladder tumor greater than 5 cm originating from right bladder wall performed by Dr. Sewell . 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 Dr. Pruitt discussed at length with sister and daughter at the bedside who have requested consultations from Urology and Oncology to consider all the options available. Oncology consult placed. Requested nursing staff reach out to Dr. Springer to discuss results/options. - Oncology following - appreciate their assistance. Family requesting aggressive therapy. Difficult patient to treat with chemotherapy. Dr. Whyte who is familiar with the patient and treated his lymphoma in the past to see on Friday. - Discussed with sister palliative care consultation and she is agreeable. Order placed for palliative care consult. - H&H dropped to 7.4/24.3. Improved status post transfusion. Hemoglobin appears stable. - Continue to flush lopez catheter PRN. Abdominal wound/ lesion - Below the GJ incision site appears to be worsening as well as increased purulence around PEG site. Started on Vancomycin. Pharmacy to dose. Continue to monitor. May need bedside I&D. - Wound Care consulted and recommends leaving open to air, imaging soft tissue ultrasound. - Continue Bacitracin - Ultrasound soft tissue surrounding area for possible fluid collection that would need I & D. - Soft tissue ultrasound showed 1. Just inferior to that the tube in the left abdomen, there is a superficial 3.8 x 2.9 0.9 cm complex fluid collection in the subcutaneous tissue. 2. Findings are nonspecific. This could represent a small seroma or abscess. Would consider CT scan of the abdomen with contrast for further evaluation and determine if there is an intraperitoneal extension. - CT of the abdomen showed 1. Abdominal aortic aneurysm. 2. Bladder mass is noted on the right posteriorly with apparent extravesical extension and clot formation. 3. Left renal cyst. 4. Left lower lobe atelectasis. 5. Large sacral decubitus ulcer with bony disruption and sclerosis of the sacrum mid to left lateral portion in the region of S3 and inferiorly which would suggest chronic osteomyelitis in the appropriate clinical setting. - No intraperitoneal extension noted for the wound. 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 Intermittently tracks with eyes. - Continue Keppra 500mg BID for seizure prophylaxis. Keppra level 17.8. - PT/OT signed off as patient is unable to participate. - On Paxil 20 by mouth daily for depression. - On acetaminophen with codeine for pain scale of 2-10. - Morphine 1 mg every 24 hours when necessary for dressing change Chronic respiratory failure secondary to CVA - Status post tracheostomy. Continue pulmonary toilet and bronchodilators as needed. Continue trach care, suctioning. Increased secretions improved with scheduled Levsin. Decreased dosing of scheduled Levsin to q8h. Pulmonary toilet. Monitor. - Trach changed to size #6 XLT on 01/09 - Duo nebs every 4 hours while awake - Pulmonary currently following, appreciate assistance. - 01/09 CTA chest: No PE, bilateral lower lobe infiltrates. 4 mm right upper lobe/5 mm right middle lobe nodule. - CXR 02/22/17 reveals minimal atelectasis - CXR 03/07/17 showing mild streaky opacity at the lung bases with no focal consolidation or effusion. Right hallux ingrown toenail, paronychia- medial aspect 02/23/17 new area of paronychia right hallux ingrown toe nail lateral aspect - Supply Officer has seen patient. I & D with partial nail avulsion performed at bedside 02/06/17. - Seen by podiatry. Plan is to aggressively cut the nail back. - Resolved Atrial fibrillation, controlled but more tachycardic Hypertension Dyslipidemia - Continue rate control with Cardizem and metoprolol. Increased tachycardia may be due to abdominal infection. Monitor. - Echocardiogram in November 2015 shows preserved ejection fraction. Coumadin discontinued secondary to bleeding. - Continue aspirin History of non-Hodgkin's lymphoma - Status post brain biopsy on December 13 by neurosurgery. Pathology consistent with acute infarct without evidence of lymphoma. Oncology has signed off. Diabetes mellitus Type 2 - Hemoglobin A1c is 5.5. - Fingersticks have been stable and were DC'd 02/01/17 Decubitus ulcer stage IV - Continue wound care, twice-daily dressing changes. Wound care recommendations last updated 12/12/16. Continue pressure relief measures including turning and positioning. Patient's family has declined a diverting colostomy. Previous Wound culture growing Klebsiella and Enterococcus Faecalis. Previously on Augmentin. Status post wide excision of sacral skin and biopsy of the cavity lining with debridement on 07/22/16. - Wound care last saw patient on 01/17/17, no new recommendations continue packing with Betadine moistened rolled Janis and covered with ABD pad and paper tape to secure. - Continue to monitor. Continue pressure-relief. - Morphine 1 mg every 24 hours when necessary for dressing change Protein calorie malnutrition Gastroesophageal reflux disease Gastric ulcer, reflux esophagitis Diarrhea, negative for C. difficile. Improved - EGD on 07/30/16 showed gastric ulcers. - On Prevacid 30 mg Q12, on tube feeds(Jevity 1.5 at 55 ml/hr) - Continue bowel regimen with hold parameters, Lactinex and Imodium. - G/J tube clogged, IR consulted to evaluate. Replaced on 02/25/17 - Reiterated proper G/J tube care and flush procedures. Discuss and explained with family. UTI pseudomonas aeruginosa Recurrent - Previous Repeat Ucx 08/28/16 negative. - 02/22/17 UA consistent with UTI - cultures pseudomonas, currently on Rocephin will change to cefepime since last culture was also Pseudomonas and was sensitive to cefepime. - Sensitivities came back, was switched over to Zosyn as cultures are not sensitive to cefepime. Completed. Klebsiella/Pseudomonas/staph aureus HCAP PSAE UTI - S/p Cefepime. Monitor for signs of infections. - strep pneumonia and Legionella urinary Ag is negative - C-diff PCR negative on 01/13 - 01/09 BC : Staph Epi, Urine cx: Pseudomonas, Sputum cx: Pseudomonas, kleb, Staph. - Patient was pancultured on 01/19 (Blood, sputum, urine) NGTD in urine and blood. Sputum + for pseudomonas. Hyponatremia - mild - IVF bolus - repeat labs ordered to monitor. DVT prophylaxis: SCDs. Heparin 5,000 units sq Q8hr Discussed with nursing staff, mother and pt's ex- (both at bedside), and Dr. Lala Discharge Planning Pt being evaluated by [facility]. Discussed with CM about placement. CM stated discussions ongoing between [facility] and [facility] for possible transfer. Problem Qualifiers (1) CVA (cerebral vascular accident): (2) DM (diabetes mellitus): Javier Harris Jr. Mar 15, 2017 11:42
[2017-03-15 12:00] VITALS: BP 124/73; PULSE 94; RESP 17; TEMP 100; O2SAT 100
[2017-03-15 12:56] LABS: PROTHROMBIN TIME - PATIENT 11.3 SEC (9.8-11.6)
[2017-03-15 12:57] LABS: APTT (PATIENT) 28.3 SEC (24.3-30.1)
[2017-03-15] MEDS: VANCOMYCIN 1,500 MG/NS 500 ML IV SCH ×2 (14:17)
--- NOTE | 2017-03-15 15:17 | HHI.IDPN ---
Subjective Subjective Remarks ID Xcover for . ID reconsulted for MDR Kleb pneumo PEG tube site cellulitis. Overnight events reviewed with RN. RN reports mild erythema and discharge at PEG tube site. clinically well, Low grade fevers. On Tpiece Afebrile Large amount of stool but C.diff is negative tolerating tube feeds at goal Antibiotics Vanco IV Lines Peripheral IV Past Medical History Hypertension. Stage III non-Hodgkin's lymphoma. Diabetes mellitus. Paroxysmal atrial fibrillation. Brain biopsy in Nov, 2015. History of left arm surgery. 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 Vital Signs Date Time Temp Pulse Resp B/P (MAP) Pulse Ox O2 Delivery O2 Flow Rate FiO2 03/15/17 12:00 100.0 94 17 124/73 (90) 100 03/15/17 08:00 98 Mechanical Ventilator 7.00 28 Trach Collar T-Piece 03/15/17 00:09 98.9 99 18 106/64 (78) 97 03/14/17 22:11 97 T-piece 5.00 28 03/14/17 20:00 97.8 98 20 120/72 (88) 95 03/14/17 20:00 T-Piece 28 Humidified 03/14/17 16:00 97.9 100 20 117/70 (86) 95 . Laboratory Tests Test 03/14/17 05:36 Creatinine 0.98 MG/DL Estimat Glomerular Filtration Rate 78 ML/MIN Microbiology Date/Time Source Procedure Growth Status 03/13/17 12:38 Wound Abdomen Gram Stain - Final Complete 03/13/17 12:38 Wound Culture - Final Klebsiella Pneumoniae Complete Imaging Last Impressions Chest X-Ray 01/20/17 0600 Signed Impressions: Service Date/Time: Friday, January 20, 2017 04:22 - CONCLUSION: 1. Bibasilar patchy densities, unchanged. 2. Tracheostomy tube unchanged. Mikie Vargas MD Head CT 01/09/17 0000 Signed Impressions: Service Date/Time: December 17:43 - CONCLUSION: 1. No acute hemorrhage or mass effect. 2. 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 3. Atrophy. Gerald Mukherjee MD CT Angiography 01/09/17 0000 Signed Impressions: Service Date/Time: December 17:49 - CONCLUSION: 1. No evidence of pulmonary emboli. 2. Patchy consolidation in both posterior lower lobes right greater than left. This could represent pneumonia. 3. 2 small noncalcified pulmonary nodules which are nonspecific finding. Short-term CT followup is recommended beginning in 6 months with a noncontrast outpatient CT. Gerald Mukherjee MD Tube Change 12/31/16 0000 Signed Impressions: Service Date/Time: Saturday, December 31, 2016 16:35 - CONCLUSION: Uncomplicated gastrojejunostomy tube exchange as above. Moises Ramírez MD Tube Check 12/04/16 0000 Signed Impressions: Service Date/Time: Sunday, December 04, 2016 17:58 - CONCLUSION: Uncomplicated tube injection as above. the tube is in good position and functions normally. Moises Ramírez MD Abdomen X-Ray 08/31/16 0000 Signed Impressions: Service Date/Time: Wednesday, August 31, 2016 16:36 - CONCLUSION: 1. No acute findings. Mild constipation. Durga Dotson MD Abdomen/Pelvis CT 04/12/16 0000 Signed Impressions: Service Date/Time: Tuesday, April 12, 2016 20:52 - CONCLUSION: 1. 6.4 cm necrotic mass or abscess in the soft tissues posteriorly just below the sacrum associated with some bony destructive change of the lower most sacrum and coccyx with inflammatory changes extending into the ischiorectal fossa and into the presacral retroperitoneum predominantly on the left side. There is associated fairly marked mural thickening of the anal verge and rectum. 2. There is gastrostomy and Lopez catheter present. Stable abdominal aortic aneurysm. Durga Dotson MD Head Magnetic Resonance Angiography 03/05/16 0000 Signed Impressions: Service Date/Time: Saturday, March 05, 2016 09:26 - CONCLUSION: Persistent high-grade subtotal occlusive stenotic lesions in the distal right vertebral artery and proximal basilar artery with significant improvement in flow and recanalization following initial presentation of thrombosis. Stable interstitial circulation without significant stenosis. Ernesto Kulkarni MD Brain MRI 03/05/16 0000 Signed Impressions: Service Date/Time: Saturday, March 05, 2016 09:26 - CONCLUSION: Evolving brainstem and bilateral occipital lobe infarcts with evidence of subacute hemorrhagic products. There is decreasing restricted diffusion and increasing loss of volume characteristic of a subacute to chronic infarct. No evidence of acute infarct, acute hemorrhage mass or edema. Ernesto Kulkarni MD Neck Magnetic Resonance Angiography 12/22/15 1445 Signed Impressions: Service Date/Time: Tuesday, December 22, 2015 09:22 - CONCLUSION: Variant origin of the left vertebral artery from the aortic arch. No evidence of carotid stenosis. Glen Zamora MD Head/Brain Mag Res Venography 12/22/15 0000 Signed Impressions: Service Date/Time: Tuesday, December 22, 2015 09:22 - CONCLUSION: Normal MRV. Jonel Jones Jr., MD Physical Exam GENERAL: eyes opened , NAD SKIN: Warm to touch and dry. No generalized rash Very clean stage IV decub with rough palpable bone. Its clean, n odor, o necrotic tissue. Upon removal of packing some clot and midl bleeding enconted. No e/o infx HEENT: [place] conjunctiva. . No scleral icterus. No injection or drainage. Mucous membranes pink and moist. NECK: Tracheostomy site looks okay. No secretions in the tubings noted CARDIOVASCULAR: Regular rate and rhythm. No murmur or rub. RESPIRATORY: clear to auscultation ABDOMEN: Soft, obese, non-tender, not distended. PEG site ok. BS (+) normoactive Rectal: dignishield in place with large amount of liquid brown stool EXTREMITIES: No clubbing, cyanosis. MIld pedal edema. Warm, and well perfused NEUROLOGICAL: resting , not following. Eyes opened, tracks PSYCH: Unable to assess ; lopez in place, urine looks clear LINE: Peripheral IV with no evidence of infection Assessment & Plan Remarks IMPRESSION Fever sepsis CVA, with significant neurologic sequela Hx NHL Acute VDRF -resolved; chronic resp failure, on piece PSAE in sputum and urine likely colonization. stage IV decub with no e/o infx RECOMMENDATION DC Vanco IV Start oral Levaquin short 5 day course (risk of Cdiff activation with any antibiotic) Consult Wound ostomy nurse. If fevers persist get blood cultures. Currently patient already on Vanco IV. Doubt value elpidio given low grade temp and likely source as PEG tube cellulitis. Will follow prn over the weekend. to resume care on Friday03/17/2017. Please call him on Friday for further recs or call me in interim if any change in clinical condition. Genia Blas MD Mar 15, 2017 15:17
[2017-03-15] MEDS: SENNOSIDES SYRUP 8.8 MG/5 ML CUP PEG SCH (15:32)
[2017-03-15] MEDS: LEVOFLOXACIN 500 MG TAB PO SCH (15:32)
[2017-03-15 16:00] VITALS: BP 119/71; PULSE 97; RESP 17; TEMP 98.5; O2SAT 99
[2017-03-15] MEDS: PARoxetine HCL SUSP 20 MG/10 ML UDC PEG SCH (18:08)
[2017-03-15 18:20] VITALS: O2SAT 99
[2017-03-15 20:00] VITALS: BP 114/70; PULSE 94; RESP 19; TEMP 97.2; O2SAT 98
[2017-03-16] VITALS (7 sets, daily range): BP systolic 110–137; BP diastolic 67–86; PULSE 100–141; RESP 17–18; TEMP 95.8–99.8; O2SAT 92–98
[2017-03-16] MEDS: HYOSCYAMINE 0.125 MG TAB G-TUBE SCH ×4 (05:09→20:54)
[2017-03-16] MEDS: HEPARIN SODIUM - SQ 10,000 UNITS/ML VIAL SQ SCH ×3 (05:09→20:58)
[2017-03-16] MEDS: ACETIC ACID 0.25% SOLN 1000 ML IRR BTL IRRIGATION SCH ×3 (05:09→20:53)
[2017-03-16] MEDS: DILTIAZEM HCL 30 MG TAB PEG SCH ×4 (07:51→20:55)
[2017-03-16] MEDS: FERROUS SULFATE 300 MG /5ML UDC PO SCH (07:51)
[2017-03-16] MEDS: levETIRAcetam 500 MG/5 ML UDC TUBE SCH ×2 (07:52→20:53)
[2017-03-16] MEDS: NYSTATIN 100,000 U/GM PWD 15 GM BTL TOPICAL SCH ×2 (07:52→20:53)
[2017-03-16] MEDS: ASCORBIC ACID 500 MG TAB PO SCH (07:52)
[2017-03-16] MEDS: LEVOFLOXACIN 500 MG TAB PO SCH (07:52)
[2017-03-16] MEDS: ARTIFICIAL TEARS OPTH SOLN 15 ML BTL EACH EYE SCH ×2 (07:53→20:51)
[2017-03-16] MEDS: SODIUM CHLORIDE 0.65% NASAL SPRAY 45 ML BTL NASAL SCH ×2 (07:53→20:52)
[2017-03-16] MEDS: LANSOPRAZOLE SOLUTAB 30 MG TAB NG SCH ×2 (07:53→20:55)
[2017-03-16] MEDS: JUVEN POWDER 1 PACK G-TUBE SCH ×2 (07:53→21:00)
[2017-03-16] MEDS: BACITRACIN OINT 0.9 GM PKT TOPICAL SCH (07:54)
[2017-03-16] MEDS: BACITRACIN TOP OINT 15 GM TUBE TOP SCH ×2 (07:54→20:52)
[2017-03-16] MEDS: ACETAMINOPHEN 650 MG/20.3 ML UDC TUBE PRN (14:22)
--- NOTE | 2017-03-16 14:43 | HHI.PR ---
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 Pt seen and examined. Pt non-verbal. Per mother (at bedside) she pt had cough this morning, reported increased secretions. Per nursing (Kate) pt has had cough this morning and some increased secretions and possible emesis but unsure of the latter. Otherwise, pt is unchanged. Objective Vitals Vital Signs Date Time Temp Pulse Resp B/P (MAP) Pulse Ox O2 Delivery O2 Flow Rate FiO2 03/16/17 12:00 96.0 116 17 110/72 (85) 96 03/16/17 08:00 95.8 103 17 113/71 (85) 98 03/16/17 00:00 99.1 100 18 117/67 (84) 98 03/15/17 20:00 Trach Collar 6.00 28 T-Piece 03/15/17 20:00 97.2 94 19 114/70 (85) 98 03/15/17 18:20 99 T-piece 5.00 28 03/15/17 16:00 98.5 97 17 119/71 (87) 99 I/O 03/15/17 03/15/17 03/15/17 03/16/17 03/16/17 03/16/17 07:00 15:00 23:00 07:00 15:00 23:00 Intake Total 847 ml 740 ml 0 ml Output Total 1800 ml 1900 ml 1500 ml Balance -953 ml -1160 ml -1500 ml Intake Oral 0 ml 0 ml IV Total 0 ml Tube Feeding 647 ml 440 ml Lipid 0 ml Tube Irrigant 300 ml Other 200 ml Output Urine Total 1800 ml 1900 ml 1500 ml # Bowel Movements 1 2 1 Result Diagram: 03/14/17 0536 Objective Remarks GENERAL: Pt encountered laying a bed, non-verbal, head turned to the left, but not responding to requests this visit. Appears unwell. SKIN: Warm and dry. Tattoo noted on right forearm. HEAD: Normocephalic. EYES: Non-icteric without injection or drainage. Pt did not follow finger during cardinal gaze exam. NECK: Supple, trachea midline. T-tube in place. CARDIOVASCULAR: Regular rate and rhythm without murmurs, gallops, or rubs. RESPIRATORY: Breath sounds equal bilaterally. No accessory muscle use. Trach tube in place. GASTROINTESTINAL: Abdomen soft, non-tender, nondistended. GJ tube noted, gauze present in area around insertion. Decreased purulent material noted at wound site. MUSCULOSKELETAL: No cyanosis, or edema. Bilateral lower leg SCD's present. PSYCHIATRIC: Pt non-verbal, he appeared calm and not in distress. Procedures 07/22/2016 Wide excision of sacral skin wound, biopsy of the cavity lining and debridement. PEG removal and Gj tube placement 07/29/16 VAC changes- M-W-F 10/23/16, 11/18, 12/31- GJ tube replacement 01/02/16 PEG placement 01/02/16 tracheostomy 02/25/17 PEG replacement 03/03/17 Cystoscopy and palliative transurethral resection of bladder tumor greater than 5cm originating from the right bladder wall Medications and IVs Current Medications Medications (Trade) Dose Ordered Sig/Junior Route Start Time Stop Time Status Last Admin (NS Flush) 2 ml UNSCH PRN IVF 12/21/15 06:00 09/28/16 21:18 (Keppra Liq) 500 mg Q12HR TUBE 12/27/15 21:00 03/16/17 07:52 (Tylenol 650 Mg/ 20 ml Liq) 650 mg Q6H PRN TUBE 12/30/15 15:15 03/16/17 14:22 (Mycostatin Powder) 1 applic Q12HR TOPICAL 01/08/16 21:00 03/16/17 07:52 (Pill Splitter) 1 ea UNSCH PRN OTHER 01/14/16 08:30 (Acetic Acid 0.25% Irr Btl) 10 ml Q8HR IRRIGATION 02/05/16 16:00 03/16/17 07:52 (Paxil Liq) 20 mg DAILY@1900 PEG 03/12/16 19:00 Future hold 03/15/17 18:08 (Zofran Inj) 4 mg Q6HR PRN IV PUSH 04/14/16 19:45 08/10/16 10:16 (Xopenex Neb) 0.63 mg Q4HR NEB PRN NEB 05/05/16 12:00 03/06/17 10:45 (Aspirin) 325 mg DAILY TUBE 05/27/16 11:40 Future Hold 02/25/17 08:28 (Heparin Inj) 5,000 units Q8HR SQ 06/11/16 14:00 Future hold 03/16/17 14:21 (Baciguent Oint) 1 applic BID TOP 07/20/16 10:00 03/16/17 07:54 (Paguate Angel Ophelia) 1 spray BID NASAL 08/01/16 21:00 03/16/17 07:53 (Tears Naturale Opth Soln) 1 drop BID EACH EYE 09/05/16 21:00 03/16/17 07:53 (Morphine Inj) 1 mg Q24H PRN IV PUSH 09/17/16 14:30 10/22/16 02:00 (Dulcolax Supp) 10 mg DAILY PRN RECTAL 09/26/16 15:30 12/08/16 09:17 (Tylenol - Codeine 120-12 Liq) 5 ml Q4H PRN G-TUBE 12/27/16 15:30 03/13/17 13:51 (Imodium Liq) 2 mg Q6H PRN PEG 12/27/16 15:30 03/13/17 20:30 (Milk Of Magnesia Liq) 30 ml DAILY PRN PEG 12/27/16 15:30 02/11/17 08:46 (Milk Of Magnesia Liq) 30 ml DAILY PEG 12/28/16 09:00 Future Hold 01/19/17 08:44 (Senna Liq) 8.8 mg DAILY@1600 PEG 12/27/16 16:00 03/15/17 15:32 (Lactulose Liq) 30 ml DAILY PRN PEG 12/27/16 15:30 (Cardizem) 30 mg QID PEG 01/09/17 18:00 03/16/17 14:20 (D50w (Vial) Inj) 50 ml UNSCH PRN IV 01/09/17 16:00 (Glucagon Inj) 1 mg UNSCH PRN OTHER 01/09/17 16:00 (Prevacid Odt) 30 mg BID NG 01/26/17 21:00 03/16/17 07:53 (Ashish Powder) 1 pack BID G-TUBE 02/10/17 21:00 03/16/17 07:53 (Ferrous Sulfate Liq) 300 mg DAILY PO 02/14/17 09:00 03/16/17 07:51 (Vitamin C) 1,000 mg DAILY PO 02/14/17 09:00 03/16/17 07:52 (Bacitracin Oint Packet) 0.9 gm DAILY TOPICAL 02/25/17 09:00 03/15/17 07:33 (Levaquin) 500 mg DAILY PO 03/15/17 16:00 03/16/17 07:52 (Levsin) 0.25 mg Q4H G-TUBE 03/16/17 14:00 03/16/17 14:20 Urinary Catheter: Yes Assessment to: Continue Lopez insert reason: Prolonged Immobilization Date of Insertion: Mar 03, 2017 A/P Problem List: (1) CVA (cerebral vascular accident) ICD Code: I63.9 - Cerebral infarction, unspecified Status: Acute (2) A-fib ICD Code: I48.91 - Unspecified atrial fibrillation Status: Chronic (3) DM (diabetes mellitus) ICD Code: E11.9 - Type 2 diabetes mellitus without complications Status: Chronic Assessment and Plan Mr. Flores is 61 year-old male with past medical history of paroxysmal A. fib, hypertension, stage III non-Hodgkin's lymphoma status post chemotherapy who came into the hospital with altered mental status. Wound noted at peg site: Klebsiella pneumoniae resulted. Continue to treat with antibiotic cream and wound cleanser. Infectious disease following. Dc/ed IV vancomycin and initiated Levaquin. Blood cultures ordered. ID note reviewed and input appreciated. Small cell Carcinoma: -Hematology/Oncology following -Interventional radiology consulted. -Urology has seen pt. -Palliative care consulted -Family to decide if radiation treatment will be undertaken. -Family has decided to move forward with palliative radiation treatment. Gross Hematuria - Lopez change following cystoscopy procedure 03/03/17. - Hematuria resolved x 48hrs. Heparin and ASA resumed. No resumption of hematuria noted. - Urology Consult appreciated. Recommends flushing Lopez catheter. - CT of the abdomen showed bladder mass right posteriorly with apparent extravesical extension and clot formation. - Urology spoke with family member, daughter, states that he's not recommending biopsy of the bladder mass. However daughter insisted on biopsy. Patient s/p cystoscopy and palliative transurethral resection of bladder tumor greater than 5 cm originating from right bladder wall performed by Dr. Sewell . 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 Dr. Pruitt discussed at length with sister and daughter at the bedside who have requested consultations from Urology and Oncology to consider all the options available. Oncology consult placed. Requested nursing staff reach out to Dr. Springer to discuss results/options. - Oncology following - appreciate their assistance. Family requesting aggressive therapy. Difficult patient to treat with chemotherapy. Dr. Whyte who is familiar with the patient and treated his lymphoma in the past to see on Friday. - Discussed with sister palliative care consultation and she is agreeable. Order placed for palliative care consult. - H&H dropped to 7.4/24.3. Improved status post transfusion. Hemoglobin appears stable. - Continue to flush lopez catheter PRN. Abdominal wound/ lesion - Below the GJ incision site appears to be worsening as well as increased purulence around PEG site. Started on Vancomycin. Pharmacy to dose. Continue to monitor. May need bedside I&D. - Wound Care consulted and recommends leaving open to air, imaging soft tissue ultrasound. - Continue Bacitracin - Ultrasound soft tissue surrounding area for possible fluid collection that would need I & D. - Soft tissue ultrasound showed 1. Just inferior to that the tube in the left abdomen, there is a superficial 3.8 x 2.9 0.9 cm complex fluid collection in the subcutaneous tissue. 2. Findings are nonspecific. This could represent a small seroma or abscess. Would consider CT scan of the abdomen with contrast for further evaluation and determine if there is an intraperitoneal extension. - CT of the abdomen showed 1. Abdominal aortic aneurysm. 2. Bladder mass is noted on the right posteriorly with apparent extravesical extension and clot formation. 3. Left renal cyst. 4. Left lower lobe atelectasis. 5. Large sacral decubitus ulcer with bony disruption and sclerosis of the sacrum mid to left lateral portion in the region of S3 and inferiorly which would suggest chronic osteomyelitis in the appropriate clinical setting. - No intraperitoneal extension noted for the wound. 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 Intermittently tracks with eyes. - Continue Keppra 500mg BID for seizure prophylaxis. Keppra level 17.8. - PT/OT signed off as patient is unable to participate. - On Paxil 20 by mouth daily for depression. - On acetaminophen with codeine for pain scale of 2-10. - Morphine 1 mg every 24 hours when necessary for dressing change Chronic respiratory failure secondary to CVA - Status post tracheostomy. Continue pulmonary toilet and bronchodilators as needed. Continue trach care, suctioning. Increased secretions improved with scheduled Levsin. Decreased dosing of scheduled Levsin to q8h. Pulmonary toilet. Monitor. - Trach changed to size #6 XLT on 01/09 - Duo nebs every 4 hours while awake - Pulmonary currently following, appreciate assistance. - 01/09 CTA chest: No PE, bilateral lower lobe infiltrates. 4 mm right upper lobe/5 mm right middle lobe nodule. - CXR 02/22/17 reveals minimal atelectasis - CXR 03/07/17 showing mild streaky opacity at the lung bases with no focal consolidation or effusion. Right hallux ingrown toenail, paronychia- medial aspect 02/23/17 new area of paronychia right hallux ingrown toe nail lateral aspect - Food Bag[employer] Machine Operator has seen patient. I & D with partial nail avulsion performed at bedside 02/06/17. - Seen by podiatry. Plan is to aggressively cut the nail back. - Resolved Atrial fibrillation, controlled but more tachycardic Hypertension Dyslipidemia - Continue rate control with Cardizem and metoprolol. Increased tachycardia may be due to abdominal infection. Monitor. - Echocardiogram in November 2015 shows preserved ejection fraction. Coumadin discontinued secondary to bleeding. - Continue aspirin History of non-Hodgkin's lymphoma - Status post brain biopsy on December 13 by neurosurgery. Pathology consistent with acute infarct without evidence of lymphoma. Oncology has signed off. Diabetes mellitus Type 2 - Hemoglobin A1c is 5.5. - Fingersticks have been stable and were DC'd 02/01/17 Decubitus ulcer stage IV - Continue wound care, twice-daily dressing changes. Wound care recommendations last updated 12/12/16. Continue pressure relief measures including turning and positioning. Patient's family has declined a diverting colostomy. Previous Wound culture growing Klebsiella and Enterococcus Faecalis. Previously on Augmentin. Status post wide excision of sacral skin and biopsy of the cavity lining with debridement on 07/22/16. - Wound care last saw patient on 01/17/17, no new recommendations continue packing with Betadine moistened rolled Janis and covered with ABD pad and paper tape to secure. - Continue to monitor. Continue pressure-relief. - Morphine 1 mg every 24 hours when necessary for dressing change Protein calorie malnutrition Gastroesophageal reflux disease Gastric ulcer, reflux esophagitis Diarrhea, negative for C. difficile. Improved - EGD on 07/30/16 showed gastric ulcers. - On Prevacid 30 mg Q12, on tube feeds(Jevity 1.5 at 55 ml/hr) - Continue bowel regimen with hold parameters, Lactinex and Imodium. - G/J tube clogged, IR consulted to evaluate. Replaced on 02/25/17 - Reiterated proper G/J tube care and flush procedures. Discuss and explained with family. UTI pseudomonas aeruginosa Recurrent - Previous Repeat Ucx 08/28/16 negative. - 02/22/17 UA consistent with UTI - cultures pseudomonas, currently on Rocephin will change to cefepime since last culture was also Pseudomonas and was sensitive to cefepime. - Sensitivities came back, was switched over to Zosyn as cultures are not sensitive to cefepime. Completed. Klebsiella/Pseudomonas/staph aureus HCAP PSAE UTI - S/p Cefepime. Monitor for signs of infections. - strep pneumonia and Legionella urinary Ag is negative - C-diff PCR negative on 01/13 - 01/09 BC : Staph Epi, Urine cx: Pseudomonas, Sputum cx: Pseudomonas, kleb, Staph. - Patient was pancultured on 01/19 (Blood, sputum, urine) NGTD in urine and blood. Sputum + for pseudomonas. Hyponatremia - mild - IVF bolus - repeat labs ordered to monitor. DVT prophylaxis: SCDs. Heparin 5,000 units sq Q8hr Discussed with nursing staff, mother and pt's ex- (both at bedside), and Dr. Lala Discharge Planning Pt being evaluated by [facility]. Discussed with CM about placement. CM stated discussions ongoing between [facility] and [facility] for possible transfer. Problem Qualifiers (1) CVA (cerebral vascular accident): (2) DM (diabetes mellitus): Javier Harris Jr. Mar 16, 2017 14:43
[2017-03-16] MEDS: ONDANSETRON HCL 4 MG/2 ML VIAL IV PUSH PRN (16:00)
[2017-03-16] MEDS: SENNOSIDES SYRUP 8.8 MG/5 ML CUP PEG SCH (16:00)
--- NOTE | 2017-03-16 16:28 | RADRPT ---
EXAM DATE/TIME: 03/16/2017 15:18 [facility] COMPARISON: CHEST SINGLE AP, March 07, 2017, 10:24. INDICATIONS : Coughing. Concern for aspirational pneumonia. MEDICAL HISTORY : Hypercholesterolemia. Hypertension. Cerebrovascular accident. Atrial fibrillation. Diabetes. Depressi on. Anxiety. Carcinoma, lymphoma. MRSA. SURGICAL HISTORY : None. ENCOUNTER: Initial ACUITY: 1 day PAIN SCORE: Non-responsive. LOCATION: Bilateral chest FINDINGS: A tracheostomy tube has its tip in good position 4 cm above the geno. Mild perihilar infiltrates a re noted. The heart is stable. CONCLUSION: 1. Mild perihilar infiltrates. 2. Tracheostomy tube remains in good position 4 cm above the geno Eduardo Valenzuela MD on March 16, 2017 at 16:10 Board Certified Radiologist. This report was verified electronically.
[2017-03-16 16:38] LABS: AUTOMATED NEUTROPHIL # 5.7 TH/MM3 (1.8-7.7); BASOPHIL # 0.1 TH/MM3 (0-0.2); EOSINOPHIL # 0.1 TH/MM3 (0-0.4); EOSINOPHIL % 1.3 % (0.0-4.0); HEMATOCRIT 26.8 % (39.0-51.0); HEMO FLAGS DIFF FINAL; LYMPH % 13.4 % (9.0-44.0); MEAN CELL VOLUME 71.5 FL (80.0-100.0); MEAN CORPUSCULAR HEMOGLOBIN 21.7 PG (27.0-34.0); MEAN CORPUSCULAR HGB CONC 30.4 % (32.0-36.0); MONO % 6.1 % (0.0-8.0); NEUT % 78.2 % (16.0-70.0); PLATELET COUNT 252 TH/MM3 (150-450); RED BLOOD COUNT 3.75 MIL/MM3 (4.50-5.90); RED CELL DISTRIBUTION WIDTH 20.4 % (11.6-17.2); WHITE BLOOD COUNT 7.3 TH/MM3 (4.0-11.0)
[2017-03-16 16:54] LABS: ALT (GPT) 13 U/L (12-78); ANION GAP 13 MEQ/L (5-15); AST (GOT) 36 U/L (15-37); BLOOD UREA NITROGEN 24 MG/DL (7-18); CHLORIDE 98 MEQ/L (98-107); GLOMERULAR FILTRATION RATE 56 ML/MIN (>89); POTASSIUM 3.9 MEQ/L (3.5-5.1); SODIUM (NA) 135 MEQ/L (136-145)
[2017-03-16 16:57] LABS: ALKALINE PHOSPHATASE 84 U/L (45-117); TOTAL BILIRUBIN ADULT 0.3 MG/DL (0.2-1.0)
--- NOTE | 2017-03-16 17:32 | HHI.PR ---
Addendum to Inpatient Note Addendum Reason: Additional Documentation Additional Information Recd call from TRU Arellano from [facility]. CXR and blood cultures ordered due to low grade fevers. bouts of aspiration x 2 earlier today. CXR after this with bilateral faint infiltrates. TRU Arellano informs me clinically stable for now. Recommended continue Levaquin for now. Possible Aspiration Pneumonitis. If any change in clinical condition overnight consider adding following to Levaquin: Vanco IV (target 15-20) Cefepime 2 gm IV q8hrs for PSAE coverage. to resume care in am. Genia Blas MD Mar 16, 2017 17:32
[2017-03-16] MEDS: PARoxetine HCL SUSP 20 MG/10 ML UDC PEG SCH (18:08)
[2017-03-17] VITALS: BP 97/60; PULSE 108; RESP 18; TEMP 99.5; O2SAT 96
[2017-03-17] MEDS: HYOSCYAMINE 0.125 MG TAB G-TUBE SCH ×6 (03:25→21:42)
[2017-03-17] MEDS: HEPARIN SODIUM - SQ 10,000 UNITS/ML VIAL SQ SCH ×3 (05:44→21:43)
[2017-03-17] MEDS: ACETIC ACID 0.25% SOLN 1000 ML IRR BTL IRRIGATION SCH ×3 (05:44→21:45)
[2017-03-17 08:00] VITALS: BP 109/69; PULSE 109; RESP 19; TEMP 98; O2SAT 98
[2017-03-17 08:34] VITALS: O2SAT 95
--- NOTE | 2017-03-17 08:57 | HHI.PR ---
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 increase cough and congestion yesterday , better today CXRAY no acute change Objective Vital Signs Date Time Temp Pulse Resp B/P (MAP) Pulse Ox O2 Delivery O2 Flow Rate FiO2 03/17/17 08:34 95 T-piece 6.00 40 03/17/17 08:00 98.0 109 19 109/69 (82) 98 03/17/17 07:54 Trach Collar 6.00 40 T-Piece 03/17/17 00:00 99.5 108 18 97/60 (72) 96 03/16/17 22:14 96 T-piece 6.00 40 03/16/17 21:00 96 Trach Collar 6.00 T-Piece 03/16/17 20:00 99.3 118 18 115/73 (87) 94 03/16/17 18:00 120 117/74 (88) 03/16/17 16:00 99.8 141 18 137/86 (103) 92 03/16/17 15:22 22 03/16/17 12:00 96.0 116 17 110/72 (85) 96 I/O 03/16/17 03/16/17 03/16/17 03/17/17 03/17/17 03/17/17 06:59 14:59 22:59 06:59 14:59 22:59 Intake Total 0 ml 200 ml 0 ml Output Total 1500 ml 1500 ml 900 ml Balance -1500 ml -1300 ml -900 ml Intake Oral 0 ml 0 ml IV Total 0 ml Tube Feeding 0 ml Lipid 0 ml Tube Irrigant 200 ml Output Urine Total 1500 ml 1500 ml 900 ml Bladder Scan Volume Amount 999 ml # Bowel Movements 1 3 1 Result Diagram: 03/16/17 1614 03/16/17 1614 Procedures 01/02/16 PEG placement 01/02/16 tracheostomy 07/22/2016 Wide excision of sacral skin wound, biopsy of the cavity lining and debridement. PEG tube replacement 07/29/16 Objective Remarks GENERAL: SKIN: Warm and dry. HEAD: Atraumatic. Normocephalic. EYES: Pupils equal and round. No scleral icterus. No injection or drainage. ENT: No nasal bleeding or discharge. Mucous membranes pink and moist. NECK: Trachea midline. No JVD. CARDIOVASCULAR: Regular rate and rhythm. RESPIRATORY: No accessory muscle use. Clear to auscultation. Breath sounds equal bilaterally. GASTROINTESTINAL: Abdomen soft, non-tender, nondistended. Hepatic and splenic margins not palpable. MUSCULOSKELETAL: Extremities without clubbing, cyanosis, or edema. No obvious deformities. NEUROLOGICAL: Awake and alert. No obvious cranial nerve deficits. Motor grossly within normal limits. Five out of 5 muscle strength in the arms and legs. Normal speech. PSYCHIATRIC: Appropriate mood and affect; insight and judgment normal. Laboratory Tests Test 01/05/17 01/06/17 08:35 08:41 Red Blood Count 4.43 MIL/MM3 (4.50-5.90) Hemoglobin 9.9 GM/DL (13.0-17.0) Hematocrit 32.0 % (39.0-51.0) Mean Corpuscular Volume 72.1 FL (80.0-100.0) Mean Corpuscular Hemoglobin 22.3 PG (27.0-34.0) Mean Corpuscular Hemoglobin 30.9 % Concent (32.0-36.0) Red Cell Distribution Width 19.9 % (11.6-17.2) Sodium Level 134 MEQ/L 133 MEQ/L (136-145) (136-145) Random Glucose 136 MG/DL 132 MG/DL (74-106) (74-106) Creatinine 0.59 MG/DL (0.60-1.30) GENERAL: SKIN: Warm and dry. HEAD: Atraumatic. Normocephalic. EYES: Pupils equal and round. No scleral icterus. No injection or drainage. ENT: No nasal bleeding or discharge. Mucous membranes pink and moist. NECK: Trachea midline. No JVD. TRACH. [place] CARDIOVASCULAR: Regular rate and rhythm. RESPIRATORY: No accessory muscle use. Clear to auscultation. Breath sounds equal bilaterally. GASTROINTESTINAL: Abdomen soft, non-tender, nondistended. Hepatic and splenic margins not palpable. MUSCULOSKELETAL: Extremities without clubbing, cyanosis, or edema. No obvious deformities. NEUROLOGICAL: Awake and alert. No obvious cranial nerve deficits. Motor grossly within normal limits. Five out of 5 muscle strength in the arms and legs. Normal speech. PSYCHIATRIC: Appropriate mood and affect; insight and judgment normal. 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 TOILET RT CONSULT PENDING Brandon Taylor MD Mar 17, 2017 08:57
[2017-03-17] MEDS: ARTIFICIAL TEARS OPTH SOLN 15 ML BTL EACH EYE SCH ×2 (09:00→21:41)
[2017-03-17] MEDS: NYSTATIN 100,000 U/GM PWD 15 GM BTL TOPICAL SCH ×2 (09:00→21:00)
[2017-03-17] MEDS: JUVEN POWDER 1 PACK G-TUBE SCH ×2 (09:00→21:00)
[2017-03-17] MEDS: BACITRACIN OINT 0.9 GM PKT TOPICAL SCH (09:00)
[2017-03-17] MEDS: BACITRACIN TOP OINT 15 GM TUBE TOP SCH ×2 (09:00→21:00)
[2017-03-17] MEDS: DILTIAZEM HCL 30 MG TAB PEG SCH ×4 (09:00→21:45)
[2017-03-17] MEDS: SODIUM CHLORIDE 0.65% NASAL SPRAY 45 ML BTL NASAL SCH ×2 (09:00→21:00)
[2017-03-17] MEDS: LANSOPRAZOLE SOLUTAB 30 MG TAB NG SCH ×2 (09:37→21:40)
[2017-03-17] MEDS: LEVOFLOXACIN 500 MG TAB PO SCH (09:38)
[2017-03-17] MEDS: ASCORBIC ACID 500 MG TAB PO SCH (09:38)
[2017-03-17] MEDS: levETIRAcetam 500 MG/5 ML UDC TUBE SCH ×2 (09:39→21:40)
[2017-03-17] MEDS: FERROUS SULFATE 300 MG /5ML UDC PO SCH (09:39)
--- NOTE | 2017-03-17 09:51 | HHI.PR ---
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 Pt seen and examined. Pt non-verbal. Per mother (at bedside reportedly all night) no new bouts of emesis and "one small cough during the night." Per nursing (Inessa) pt is afebrile, no emesis overnight. No acute issues reported overnight or since start of shift. Objective Vitals Vital Signs Date Time Temp Pulse Resp B/P (MAP) Pulse Ox O2 Delivery O2 Flow Rate FiO2 03/17/17 08:34 95 T-piece 6.00 40 03/17/17 08:00 98.0 109 19 109/69 (82) 98 03/17/17 07:54 Trach Collar 6.00 40 T-Piece 03/17/17 00:00 99.5 108 18 97/60 (72) 96 03/16/17 22:14 96 T-piece 6.00 40 03/16/17 21:00 96 Trach Collar 6.00 T-Piece 03/16/17 20:00 99.3 118 18 115/73 (87) 94 03/16/17 18:00 120 117/74 (88) 03/16/17 16:00 99.8 141 18 137/86 (103) 92 03/16/17 15:22 22 03/16/17 12:00 96.0 116 17 110/72 (85) 96 I/O 03/16/17 03/16/17 03/16/17 03/17/17 03/17/17 03/17/17 06:59 14:59 22:59 06:59 14:59 22:59 Intake Total 0 ml 200 ml 0 ml Output Total 1500 ml 1500 ml 900 ml Balance -1500 ml -1300 ml -900 ml Intake Oral 0 ml 0 ml IV Total 0 ml Tube Feeding 0 ml Lipid 0 ml Tube Irrigant 200 ml Output Urine Total 1500 ml 1500 ml 900 ml Bladder Scan Volume Amount 999 ml # Bowel Movements 1 3 1 Result Diagram: 03/16/17 1614 03/16/17 1614 Imaging Last Impressions Chest X-Ray 03/16/17 0000 Signed Impressions: Service Date/Time: Thursday, March 16, 2017 15:18 - CONCLUSION: 1. Mild perihilar infiltrates. 2. Tracheostomy tube remains in good position 4 cm above the geno Eduardo Valenzuela MD Brain MRI 03/14/17 Signed Impressions: Service Date/Time: Tuesday, March 14, 2017 12:41 - CONCLUSION: The signal abnormality and enhancement within the bilateral occipital lobes and colin have decreased since the prior examinations. No new abnormality is identified. There is no new enhancing area or signs of a recent ischemia. Glen Gordon MD Chest CT 03/10/17 Signed Impressions: Service Date/Time: Friday, March 10, 2017 21:00 - CONCLUSION: 1. Periaortic soft tissue along the proximal descending thoracic aorta not previously seen. This represents either lymphomatous involvement or adjacent consolidated airspace disease. 2. Mild bilateral airspace disease 3. No evidence of significant lymphadenopathy involving the mediastinum, hilar regions, axillas or supraclavicular lore chain. 4. Tracheostomy tube in place. Ernesto Kulkarni MD Abdomen/Pelvis CT 02/27/17 Signed Impressions: Service Date/Time: February 02:24 - CONCLUSION: 1. Abdominal aortic aneurysm. 2. Bladder mass is noted on the right posteriorly with apparent extravesical extension and clot formation. 3. Left renal cyst. 4. Left lower lobe atelectasis. 5. Large sacral decubitus ulcer with bony destruction and sclerosis of the sacrum mid to left lateral portion in the region of S3 and inferiorly which would suggest chronic osteomyelitis in the appropriate clinical setting. Rajan Granados MD Soft Tissue Ultrasound 02/26/17 Signed Impressions: Service Date/Time: Sunday, February 26, 2017 12:52 - CONCLUSION: 1. Just inferior to the G-tube in the left abdomen, there is a superficial 3.8 x 2.9 0.9 cm complex fluid collection in the subcutaneous tissues. 2. Findings are nonspecific. This could represent a small seroma or abscess. Would consider CT scan of the abdomen without contrast for further evaluation to determine if there is intraperitoneal extension. Bobby Gray MD Gastrostomy Tube Placement 02/25/17 0000 Signed Impressions: Service Date/Time: Saturday, February 25, 2017 14:19 - CONCLUSION: Uncomplicated exchange of gastroenteric feeding tube for gastrostomy tube as above. Positioning confirmed. The tube can be used immediately. Glen Zamora MD Tube Change 02/14/17 0000 Signed Impressions: Service Date/Time: Tuesday, February 14, 2017 00:00 - CONCLUSION: Uncomplicated gastrojejunostomy tube exchange as above. Scott Griffin MD Head CT 01/09/17 0000 Signed Impressions: Service Date/Time: December 17:43 - CONCLUSION: 1. No acute hemorrhage or mass effect. 2. 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 3. Atrophy. Gerald Mukherjee MD CT Angiography 01/09/17 0000 Signed Impressions: Service Date/Time: December 17:49 - CONCLUSION: 1. No evidence of pulmonary emboli. 2. Patchy consolidation in both posterior lower lobes right greater than left. This could represent pneumonia. 3. 2 small noncalcified pulmonary nodules which are nonspecific finding. Short-term CT followup is recommended beginning in 6 months with a noncontrast outpatient CT. Gerald Mukherjee MD Tube Check 12/04/16 0000 Signed Impressions: Service Date/Time: Sunday, December 04, 2016 17:58 - CONCLUSION: Uncomplicated tube injection as above. the tube is in good position and functions normally. Moises Ramírez MD Abdomen X-Ray 08/31/16 0000 Signed Impressions: Service Date/Time: Wednesday, August 31, 2016 16:36 - CONCLUSION: 1. No acute findings. Mild constipation. Durga Dotson MD Head Magnetic Resonance Angiography 03/05/16 0000 Signed Impressions: Service Date/Time: Saturday, March 05, 2016 09:26 - CONCLUSION: Persistent high-grade subtotal occlusive stenotic lesions in the distal right vertebral artery and proximal basilar artery with significant improvement in flow and recanalization following initial presentation of thrombosis. Stable interstitial circulation without significant stenosis. Ernesto Kulkarni MD Neck Magnetic Resonance Angiography 12/22/15 1445 Signed Impressions: Service Date/Time: Tuesday, December 22, 2015 09:22 - CONCLUSION: Variant origin of the left vertebral artery from the aortic arch. No evidence of carotid stenosis. Glen Zamora MD Head/Brain Mag Res Venography 12/22/15 0000 Signed Impressions: Service Date/Time: Tuesday, December 22, 2015 09:22 - CONCLUSION: Normal MRV. Jonel Jones Jr., MD Objective Remarks GENERAL: Pt encountered laying a bed, non-verbal, head turned to the left, limited responding to requests this visit. Appears improved over yesterday. SKIN: Warm and dry. Tattoo noted on right forearm. HEAD: Normocephalic. EYES: Non-icteric without injection or drainage. Pt did follow finger vertically and leftward during cardinal gaze exam. NECK: Supple, trachea midline. T-tube in place. CARDIOVASCULAR: Regular rate and rhythm without murmurs, gallops, or rubs. RESPIRATORY: Breath sounds equal bilaterally. No wheezing, rhonchi, or rales. No accessory muscle use. Trach tube in place. GASTROINTESTINAL: Abdomen soft, non-tender, nondistended. GJ tube noted, gauze present in area around insertion. Some purulent material noted at wound site. MUSCULOSKELETAL: No cyanosis, or edema. Bilateral lower leg SCD's present. PSYCHIATRIC: Pt non-verbal, he appeared calm and not in distress. Procedures 07/22/2016 Wide excision of sacral skin wound, biopsy of the cavity lining and debridement. PEG removal and Gj tube placement 07/29/16 VAC changes- M-W-F 10/23/16, 11/18, 12/31- GJ tube replacement 01/02/16 PEG placement 01/02/16 tracheostomy 02/25/17 PEG replacement 03/03/17 Cystoscopy and palliative transurethral resection of bladder tumor greater than 5cm originating from the right bladder wall Medications and IVs Current Medications Medications (Trade) Dose Ordered Sig/Junior Route Start Time Stop Time Status Last Admin (NS Flush) 2 ml UNSCH PRN IVF 12/21/15 06:00 09/28/16 21:18 (Keppra Liq) 500 mg Q12HR TUBE 12/27/15 21:00 03/16/17 20:53 (Tylenol 650 Mg/ 20 ml Liq) 650 mg Q6H PRN TUBE 12/30/15 15:15 03/16/17 14:22 (Mycostatin Powder) 1 applic Q12HR TOPICAL 01/08/16 21:00 03/16/17 20:53 (Pill Splitter) 1 ea UNSCH PRN OTHER 01/14/16 08:30 (Acetic Acid 0.25% Irr Btl) 10 ml Q8HR IRRIGATION 02/05/16 16:00 03/17/17 05:44 (Paxil Liq) 20 mg DAILY@1900 PEG 03/12/16 19:00 Future hold 03/16/17 18:08 (Zofran Inj) 4 mg Q6HR PRN IV PUSH 04/14/16 19:45 03/16/17 16:00 (Xopenex Neb) 0.63 mg Q4HR NEB PRN NEB 05/05/16 12:00 03/06/17 10:45 (Aspirin) 325 mg DAILY TUBE 05/27/16 11:40 Future Hold 02/25/17 08:28 (Heparin Inj) 5,000 units Q8HR SQ 06/11/16 14:00 Future hold 03/17/17 05:44 (Baciguent Oint) 1 applic BID TOP 07/20/16 10:00 03/16/17 20:52 (Charles [place] [facility] [place]) 1 spray BID NASAL 08/01/16 21:00 03/16/17 20:52 (Tears Naturale Opth Soln) 1 drop BID EACH EYE 09/05/16 21:00 03/16/17 20:51 (Morphine Inj) 1 mg Q24H PRN IV PUSH 09/17/16 14:30 10/22/16 02:00 (Dulcolax Supp) 10 mg DAILY PRN RECTAL 09/26/16 15:30 12/08/16 09:17 (Tylenol - Codeine 120-12 Liq) 5 ml Q4H PRN G-TUBE 12/27/16 15:30 03/13/17 13:51 (Imodium Liq) 2 mg Q6H PRN PEG 12/27/16 15:30 03/13/17 20:30 (Milk Of Magnesia Liq) 30 ml DAILY PRN PEG 12/27/16 15:30 02/11/17 08:46 (Milk Of Magnesia Liq) 30 ml DAILY PEG 12/28/16 09:00 Future Hold 01/19/17 08:44 (Senna Liq) 8.8 mg DAILY@1600 PEG 12/27/16 16:00 03/15/17 15:32 (Lactulose Liq) 30 ml DAILY PRN PEG 12/27/16 15:30 (Cardizem) 30 mg QID PEG 01/09/17 18:00 03/16/17 20:55 (D50w (Vial) Inj) 50 ml UNSCH PRN IV 01/09/17 16:00 (Glucagon Inj) 1 mg UNSCH PRN OTHER 01/09/17 16:00 (Prevacid Odt) 30 mg BID NG 01/26/17 21:00 03/16/17 20:55 (Ashish Powder) 1 pack BID G-TUBE 02/10/17 21:00 03/16/17 21:00 (Ferrous Sulfate Liq) 300 mg DAILY PO 02/14/17 09:00 03/16/17 07:51 (Vitamin C) 1,000 mg DAILY PO 02/14/17 09:00 03/16/17 07:52 (Bacitracin Oint Packet) 0.9 gm DAILY TOPICAL 02/25/17 09:00 03/15/17 07:33 (Levaquin) 500 mg DAILY PO 03/15/17 16:00 03/16/17 07:52 (Levsin) 0.25 mg Q4H G-TUBE 03/16/17 14:00 03/17/17 05:43 Urinary Catheter: Yes Assessment to: Continue Lopez insert reason: Prolonged Immobilization Date of Insertion: Mar 03, 2017 A/P Problem List: (1) CVA (cerebral vascular accident) ICD Code: I63.9 - Cerebral infarction, unspecified Status: Acute (2) A-fib ICD Code: I48.91 - Unspecified atrial fibrillation Status: Chronic (3) DM (diabetes mellitus) ICD Code: E11.9 - Type 2 diabetes mellitus without complications Status: Chronic Assessment and Plan Mr. Flores is 61 year-old male with past medical history of paroxysmal A. fib, hypertension, stage III non-Hodgkin's lymphoma status post chemotherapy who came into the hospital with altered mental status. Emesis: No further episodes. VSS, afebrile. Tube feedings held. Blood cultures pending. AM labs (CBC/BMP) ordered. Awaiting input from Dr. Liu ( infectious disease). Consider resuming tube feeds at decreased rate later in the day. Zofran 4 mg iv q hrs PRN. Pt stable over night. No new antibiotics initiated overnight. DVT prophylaxis: On Heparin, recent PRASHANTH 28.3. Small cell Carcinoma: -Hematology/Oncology following -Interventional radiology consulted. -Urology has seen pt. -Palliative care consulted -Family to decide if radiation treatment will be undertaken. -Family has decided to move forward with palliative radiation treatment. Gross Hematuria - Lopez change following cystoscopy procedure 03/03/17. - Hematuria resolved x 48hrs. Heparin and ASA resumed. No resumption of hematuria noted. - Urology Consult appreciated. Recommends flushing Lopez catheter. - CT of the abdomen showed bladder mass right posteriorly with apparent extravesical extension and clot formation. - Urology spoke with family member, daughter, states that he's not recommending biopsy of the bladder mass. However daughter insisted on biopsy. Patient s/p cystoscopy and palliative transurethral resection of bladder tumor greater than 5 cm originating from right bladder wall performed by Dr. Sewell . 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 Dr. Pruitt discussed at length with sister and daughter at the bedside who have requested consultations from Urology and Oncology to consider all the options available. Oncology consult placed. Requested nursing staff reach out to Dr. Springer to discuss results/options. - Oncology following - appreciate their assistance. Family requesting aggressive therapy. Difficult patient to treat with chemotherapy. Dr. Whyte who is familiar with the patient and treated his lymphoma in the past to see on Friday. - Discussed with sister palliative care consultation and she is agreeable. Order placed for palliative care consult. - H&H dropped to 7.4/24.3. Improved status post transfusion. Hemoglobin appears stable. - Continue to flush lopez catheter PRN. Abdominal wound/ lesion - Below the GJ incision site appears to be worsening as well as increased purulence around PEG site. Started on Vancomycin. Pharmacy to dose. Continue to monitor. May need bedside I&D. - Wound Care consulted and recommends leaving open to air, imaging soft tissue ultrasound. - Continue Bacitracin - Ultrasound soft tissue surrounding area for possible fluid collection that would need I & D. - Soft tissue ultrasound showed 1. Just inferior to that the tube in the left abdomen, there is a superficial 3.8 x 2.9 0.9 cm complex fluid collection in the subcutaneous tissue. 2. Findings are nonspecific. This could represent a small seroma or abscess. Would consider CT scan of the abdomen with contrast for further evaluation and determine if there is an intraperitoneal extension. - CT of the abdomen showed 1. Abdominal aortic aneurysm. 2. Bladder mass is noted on the right posteriorly with apparent extravesical extension and clot formation. 3. Left renal cyst. 4. Left lower lobe atelectasis. 5. Large sacral decubitus ulcer with bony disruption and sclerosis of the sacrum mid to left lateral portion in the region of S3 and inferiorly which would suggest chronic osteomyelitis in the appropriate clinical setting. - No intraperitoneal extension noted for the wound. 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 Intermittently tracks with eyes. - Continue Keppra 500mg BID for seizure prophylaxis. Keppra level 17.8. - PT/OT signed off as patient is unable to participate. - On Paxil 20 by mouth daily for depression. - On acetaminophen with codeine for pain scale of 2-10. - Morphine 1 mg every 24 hours when necessary for dressing change Chronic respiratory failure secondary to CVA - Status post tracheostomy. Continue pulmonary toilet and bronchodilators as needed. Continue trach care, suctioning. Increased secretions improved with scheduled Levsin. Decreased dosing of scheduled Levsin to q8h. Pulmonary toilet. Monitor. - Trach changed to size #6 XLT on 01/09 - Duo nebs every 4 hours while awake - Pulmonary currently following, appreciate assistance. - 01/09 CTA chest: No PE, bilateral lower lobe infiltrates. 4 mm right upper lobe/5 mm right middle lobe nodule. - CXR 02/22/17 reveals minimal atelectasis - CXR 03/07/17 showing mild streaky opacity at the lung bases with no focal consolidation or effusion. Right hallux ingrown toenail, paronychia- medial aspect 02/23/17 new area of paronychia right hallux ingrown toe nail lateral aspect - Automotive Mechanic has seen patient. I & D with partial nail avulsion performed at bedside 02/06/17. - Seen by podiatry. Plan is to aggressively cut the nail back. - Resolved Atrial fibrillation, controlled but more tachycardic Hypertension Dyslipidemia - Continue rate control with Cardizem and metoprolol. Increased tachycardia may be due to abdominal infection. Monitor. - Echocardiogram in November 2015 shows preserved ejection fraction. Coumadin discontinued secondary to bleeding. - Continue aspirin History of non-Hodgkin's lymphoma - Status post brain biopsy on December 13 by neurosurgery. Pathology consistent with acute infarct without evidence of lymphoma. Oncology has signed off. Diabetes mellitus Type 2 - Hemoglobin A1c is 5.5. - Fingersticks have been stable and were DC'd 02/01/17 Decubitus ulcer stage IV - Continue wound care, twice-daily dressing changes. Wound care recommendations last updated 12/12/16. Continue pressure relief measures including turning and positioning. Patient's family has declined a diverting colostomy. Previous Wound culture growing Klebsiella and Enterococcus Faecalis. Previously on Augmentin. Status post wide excision of sacral skin and biopsy of the cavity lining with debridement on 07/22/16. - Wound care last saw patient on 01/17/17, no new recommendations continue packing with Betadine moistened rolled Janis and covered with ABD pad and paper tape to secure. - Continue to monitor. Continue pressure-relief. - Morphine 1 mg every 24 hours when necessary for dressing change Protein calorie malnutrition Gastroesophageal reflux disease Gastric ulcer, reflux esophagitis Diarrhea, negative for C. difficile. Improved - EGD on 07/30/16 showed gastric ulcers. - On Prevacid 30 mg Q12, on tube feeds(Jevity 1.5 at 55 ml/hr) - Continue bowel regimen with hold parameters, Lactinex and Imodium. - G/J tube clogged, IR consulted to evaluate. Replaced on 02/25/17 - Reiterated proper G/J tube care and flush procedures. Discuss and explained with family. UTI pseudomonas aeruginosa Recurrent - Previous Repeat Ucx 08/28/16 negative. - 02/22/17 UA consistent with UTI - cultures pseudomonas, currently on Rocephin will change to cefepime since last culture was also Pseudomonas and was sensitive to cefepime. - Sensitivities came back, was switched over to Zosyn as cultures are not sensitive to cefepime. Completed. Klebsiella/Pseudomonas/staph aureus HCAP PSAE UTI - S/p Cefepime. Monitor for signs of infections. - strep pneumonia and Legionella urinary Ag is negative - C-diff PCR negative on 01/13 - 01/09 BC : Staph Epi, Urine cx: Pseudomonas, Sputum cx: Pseudomonas, kleb, Staph. - Patient was pancultured on 01/19 (Blood, sputum, urine) NGTD in urine and blood. Sputum + for pseudomonas. Hyponatremia - mild - IVF bolus - repeat labs ordered to monitor. DVT prophylaxis: SCDs. Heparin 5,000 units sq Q8hr Discussed with nursing staff, mother (at bedside), and Dr. Lala Discharge Planning Pt being evaluated by Jarrod. Discussed with CM about placement. CM stated discussions ongoing between [place] and [facility] for possible transfer. Problem Qualifiers (1) CVA (cerebral vascular accident): (2) DM (diabetes mellitus): Javier Harris Jr. Mar 17, 2017 09:51
[2017-03-17 12:00] VITALS: BP 123/70; PULSE 121; RESP 20; TEMP 97.7; O2SAT 98
[2017-03-17 15:40] LABS: HEMATOCRIT 25.1 % (39.0-51.0); MEAN CELL VOLUME 71.7 FL (80.0-100.0); MEAN CORPUSCULAR HEMOGLOBIN 21.8 PG (27.0-34.0); MEAN CORPUSCULAR HGB CONC 30.4 % (32.0-36.0); PLATELET COUNT 220 TH/MM3 (150-450); RED BLOOD COUNT 3.51 MIL/MM3 (4.50-5.90); RED CELL DISTRIBUTION WIDTH 20.3 % (11.6-17.2); REVIEW FLAG FINAL
--- NOTE | 2017-03-17 15:56 | HHI.HCPN ---
Reason for visit a. To assist with evaluation and management of symptoms including: dyspnea, encephalopathy, depression b. To assist medical decision maker(s) with: better understanding of current medical conditions; weighing benefits/burdens of medical treatment options; making medical treatment decisions. Subjective/Interval History Palliative care RECONSULTED 03/10/17 on this pt, pt well known to Palliative Care. Pt has remained stable in med surg unit. Briefly in ICU last month for dyspnea/ resp distress, on mech vent for several days. Has remained stable on 29% fio2 to trach since then. Palliative care reconsulted at this time due to no findings of 5 x 3.5 cm bladder mass. Status post cystoscopy, biopsy. Pathology positive small cell carcinoma. Oncology has evaluated, reports would be difficult to provide chemotherapy to this patient due to multiple chronic medical issues, and chronically debilitated state. Oncology Recommends further follow-up/consultation with Dr. Whyte patient known oncologist from prior lymphoma (11/2015), as well as CT chest, and palliative care consult to clarify goals of treatment. * Patient has remained stable. S/p CT chest per oncology r/o metastatic disease , CT chest negative. S/p radiation oncology evaluation / Dr Lincoln notes that a brief course of palliative radiation could be considered, but would pose risk of additional pelvic complications, and would still expect disease process to continue. notes discussion w pt daughter, recommends hospice, though leaves the decision to the children. Notified by medical attending PA that pt family at bedside requesting follow up/ additional information from palliative care. Over weekend pt w episode emesis x2. TF held, CXR yesterday= Mild perihilar infiltrates. Patient family reporting patient with some headaches. MRI obtained yesterday with no new or acute findings. Low grade fevers. BC obtained 03/16 no growth. Wound culture from 03/13 + Klebsiella pneumonia . ID feels fevers likely secondary to cellulitis / skin wound. Per record family discussed and have concluded to proceed with course of palliative radiation as per radiation oncology. Patient seen in room, ex Leanne at bedside. Patient with eyes closed, appears to be sleeping, appears comfortable. Chewing type motion noted with mouth. Mildly tachypneic respiratory rate 22. Coarse rhonchi audible lung mo. Following exam spoke with ex Leanne at length in consultation area at her request. Of note per [place] Statutes, medical proxy decision making would fall to the majority of adult children, as Mr. Flores is not legally . His ex Leanne and children ALL participate in decision making, with dtr Leanne and ex Leanne serving as primary points of contact. History brought forward from initial consult by Rita MOCTEZUMA on 01/10/16: This 59-year-old patient was admitted on 12/21/15 via the ED for facial drooping. ED physician notes that patient and patients are poor historians, EMS reported the could not provide good timelines to them. Patient also reported headache, difficulty ambulating. He had known history of recent findings of mass in the brain. During ED course had deterioration of clinical condition and able to protect his airway, unable to follow commands patient was intubated and CT brain obtained. He was admitted for further evaluation and management to the ICU. Scrap Baler was consulted and following patient. Pathology on recent brain biopsy (12/13) still pending. CLINICAL/HOSPITAL COURSE: * CT brain= no focal or acute intracranial hemorrhage. New area decreased density in left occipital lobe suggestive of recent nonhemorrhagic infarct, decreased density in previously noted right occipital lobe has increased in size * Brain MRI = new area of restricted diffusion within left occipital lobe suggesting acute infarct. Interval enlargement of the area of restricted diffusion within right occipital lobe suggesting probable extension of right occipital and started on. Underlying enhancement of right occipital lobe is slightly worse than the previous exam and nonspecific. Biopsy has been performed and results are pending. Tiny focal area of restricted diffusion within right cerebellar hemisphere consistent with probable acute/subacute lacunar infarct. Signal abnormality in the SWI sequence within the right occipital lobe suggesting some hemorrhage in biopsy bed. No midline shift or extra-axial fluid collections. * CXR= no acute cardiopulmonary disease * -Neurology consulted, ordered MRA to look for vertebrobasilar stenosis, echo done last admission notes normal EF with normal valves and normal left atrial size. EEG also ordered. MR venogram ordered. EEG= abnormal study consistent with her encephalopathy. MRV indicated basilar occlusion; neurology notes discussion with family regarding chemical code only, also notes discussion regarding risks associated with the anticoagulates, was discussed with radiologist/INR recommended not helpful to extract basilar clot as this could result in patient's . It was felt the colin was infarcted. Further neurology notes "he could be locked in", is acting as if colin is infarcted. * Oncology known to patient also consulted for non-Hodgkin's lymphoma: Dr Whyte documents that there was no evidence of residual or recurrent disease on CT scans of chest, abdomen, pelvis done in October and November of this year. Pathology was still pending, had been sent to [facility] for second opinion. No acute oncology interventions recommended at that time, will follow. * 12/23 - 12/25 febrile. CPAP trials. Remains on vent off of sedation. Withdrawing to pain. Repeat brain MRI= evolving brainstem stroke. Neurology notes extensive discussion with family, notes discussion the patient is locked in but fully aware, family would like to see help patient does over the next 3 months. 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 Biopsy brain lesion appears consistent with acute infarct no lymphoma. Family desires ongoing aggressive measures, will proceed with tracheostomy. Sputum culture positive sensitive Klebsiella. * 01/01 tracheostomy, PEG tube placement * 01/04 trach collar trials, alternating with T piece. Low-grade fever 100.5. CXR = mild bibasilar atelectasis. Neuro: Spontaneously opening eyes, looking up / down, directionally to commands. * 01/07 still "locked in " , transferred off ICU to regular floor. * 01/08 pulmonology consulted-not CXR clear no evidence of pulmonary infection. He may have some underlying COPD recommends continued aerosol treatments. Further notes long discussion with family at bedside regarding tracheostomy, long-term use of trach until patient able to protect his airway, no further recommendations. Palliative care consulted to assist with clarification of goals of treatment. Family/friend interactions Spoke with ex- Leanne at length approximately 45 minutes. Discussion included: * Review of patient prolonged hospital trajectory * Review of current conditions overall prognosis * Review of most recent diagnostic findings of small cell cancer in the bladder ; limited treatment options including palliative radiation and additional risks and complications this may pose * Review of limited life expectancy even with any palliative treatment * Review of what patient wishes would be, patient preferences/ quality of life * Review of hospice/comfort treatments only what types of treatments would be continued, what types of interventions would not be done [i.e. labs, frequent vital sign monitoring, imaging, IVs, IV antibiotics] review that patient would not be treated with further curative treatments or artificial life-sustaining measures however any treatments ongoing would instead focus on patient comfort and end-of-life acknowledging that he would have limited life expectancy from ongoing and reviewed disease processes. She has many questions regarding tube feeding etc. and other hospice policies reviewed all of this with her at length. * Review of CODE STATUS/currently alternative code Patient ex- verbalizes that she is now beginning to think that they could be reflecting potential suffering by proceeding with palliative radiation. She shares that the patient has moments of what they feel is pretty clear interaction with the family and that he has wanted to fight and proceed with treatments during his prolonged hospital course up until this point. She feels the patient understands overall poor prognosis related to new cancer findings, and she is not certain he would wish to proceed with radiation. For the most part his mother has been the one most reluctant to not pursue further aggressive measures and she and the children have begun to discuss if they should proceed with radiation however they do not think patient mother will accept or allow this. She is appropriately tearful at times, and indicates that she understands the gravity of current cancer diagnoses and is leaning towards comfort measures however is also struggling to "withhold "nutrition etc. she would not want him to feel hungry. Much exploration with her of end-of -life process. Questions answered to the best my ability. I offered ongoing support and follow-up to her and the rest of the family. Review with her resuscitation status, and that they as a family could elect to change to full DNR to allow the past comfortably should he again experienced respiratory compromiseshe indicates they will talk as a family and she will notify me or they will notify me if they elect DNR status for him. Advance Directives Living Will: Never completed Health Care Surrogate: Never completed Objective Vital Signs Date Time Temp Pulse Resp B/P (MAP) Pulse Ox O2 Delivery O2 Flow Rate FiO2 03/17/17 12:00 97.7 121 20 123/70 (87) 98 03/17/17 08:34 95 T-piece 6.00 40 8/28/17 08:00 98.0 109 19 109/69 (82) 98 03/17/17 07:54 Trach Collar 6.00 40 T-Piece 03/17/17 00:00 99.5 108 18 97/60 (72) 96 03/16/17 22:14 96 T-piece 6.00 40 03/16/17 21:00 96 Trach Collar 6.00 T-Piece 03/16/17 20:00 99.3 118 18 115/73 (87) 94 03/16/17 18:00 120 117/74 (88) 03/16/17 16:00 99.8 141 18 137/86 (103) 92 Intake & Output 03/17/17 03/17/17 07:00 19:00 Intake Total 200 ml 200 ml Output Total 1200 ml Balance -1000 ml 200 ml Intake Oral 0 ml IV Total 0 ml 0 ml Tube Feeding 0 ml 0 ml Tube Irrigant 200 ml Other 200 ml Output Urine Total 1200 ml Bladder Scan Volume Amount 999 ml # Bowel Movements 1 Physical Exam CONSTITUTIONAL/GENERAL: This is a chronically ill, frail appearing patient, in no apparent distress TUBES/LINES/DRAINS: Arevalo catheter, PEG tube, tracheostomy, reported ongoing wound to sacrum though I did not visualize. Skin temperature appropriate. Not diaphoretic. CARDIOVASCULAR: Regular rate and rhythm without murmurs.Peripheral pulses symmetric. Trace peripheral edema to upper extremities. RESPIRATORY/CHEST: Tracheostomy midline, no symptoms of problems around site. Symmetric, unlabored respirations. T piece, 28% FiO2. Lung sounds with scattered coarse upper mo, clear lower. Breath sounds equal bilaterally. GASTROINTESTINAL: Abdomen soft, no apparent tenderness, nondistended. No palpable masses. Bowel sounds normoactive. tube feed infusing via PEG. Very slight erythema around PEG tube insertion. MUSCULOSKELETAL: Extremities without clubbing, cyanosis. Trace edema upper extremities, lower extremities. No joint effusion noted. No mottling or clubbing.+ Muscle atrophy to all 4 extremities. NEUROLOGICAL: Eyes open, tracks examiner left and right. Does not follow commands, moves left hand/forearm weakly. Otherwise no movement, no following commands. PSYCHIATRIC: Difficult to fully assess due to clinical condition. no evident anxiety . . Diagnostic Tests Laboratory Laboratory Tests Test 03/15/17 12:03 03/16/17 16:14 03/17/17 14:38 Prothrombin Time 11.3 SEC (9.8-11.6) Prothromb Time International Ratio 1.0 RATIO Activated Partial Thromboplast Time 28.3 SEC (24.3-30.1) White Blood Count 7.3 TH/MM3 (4.0-11.0) 7.0 TH/MM3 (4.0-11.0) Red Blood Count 3.75 MIL/MM3 (4.50-5.90) 3.51 MIL/MM3 (4.50-5.90) Hemoglobin 8.1 GM/DL (13.0-17.0) 7.6 GM/DL (13.0-17.0) Hematocrit 26.8 % (39.0-51.0) 25.1 % (39.0-51.0) Mean Corpuscular Volume 71.5 FL (80.0-100.0) 71.7 FL (80.0-100.0) Mean Corpuscular Hemoglobin 21.7 PG (27.0-34.0) 21.8 PG (27.0-34.0) Mean Corpuscular Hemoglobin Concent 30.4 % (32.0-36.0) 30.4 % (32.0-36.0) Red Cell Distribution Width 20.4 % (11.6-17.2) 20.3 % (11.6-17.2) Platelet Count 252 TH/MM3 (150-450) 220 TH/MM3 (150-450) Mean Platelet Volume 8.2 FL (7.0-11.0) 8.1 FL (7.0-11.0) Neutrophils (%) (Auto) 78.2 % (16.0-70.0) Lymphocytes (%) (Auto) 13.4 % (9.0-44.0) Monocytes (%) (Auto) 6.1 % (0.0-8.0) Eosinophils (%) (Auto) 1.3 % (0.0-4.0) Basophils (%) (Auto) 1.0 % (0.0-2.0) Neutrophils # (Auto) 5.7 TH/MM3 (1.8-7.7) Lymphocytes # (Auto) 1.0 TH/MM3 (1.0-4.8) Monocytes # (Auto) 0.4 TH/MM3 (0-0.9) Eosinophils # (Auto) 0.1 TH/MM3 (0-0.4) Basophils # (Auto) 0.1 TH/MM3 (0-0.2) CBC Comment DIFF FINAL Differential Comment Blood Urea Nitrogen 24 MG/DL (7-18) Creatinine 1.30 MG/DL (0.60-1.30) Random Glucose 129 MG/DL (74-106) Total Protein 9.2 GM/DL (6.4-8.2) Albumin 2.4 GM/DL (3.4-5.0) Calcium Level 9.0 MG/DL (8.5-10.1) Alkaline Phosphatase 84 U/L (45-117) Aspartate Amino Transf (AST/SGOT) 36 U/L (15-37) Alanine Aminotransferase (ALT/SGPT) 13 U/L (12-78) Total Bilirubin 0.3 MG/DL (0.2-1.0) Sodium Level 135 MEQ/L (136-145) Potassium Level 3.9 MEQ/L (3.5-5.1) Chloride Level 98 MEQ/L (98-107) Carbon Dioxide Level 24.0 MEQ/L (21.0-32.0) Anion Gap 13 MEQ/L (5-15) Estimat Glomerular Filtration Rate 56 ML/MIN (>89) Result Diagram: 03/17/17 1438 03/16/17 1614 Microbiology Microbiology Date/Time Source Procedure Growth Status 03/16/17 16:21 Blood Peripheral Aerobic Blood Culture - Preliminary NO GROWTH IN 1 DAY Resulted 03/16/17 16:21 Blood Peripheral Anaerobic Blood Culture - Preliminary NO GROWTH IN 1 DAY Resulted 03/16/17 16:14 Blood Peripheral Aerobic Blood Culture - Preliminary NO GROWTH IN 1 DAY Resulted 03/16/17 16:14 Blood Peripheral Anaerobic Blood Culture - Preliminary NO GROWTH IN 1 DAY Resulted Imaging Last Impressions Chest X-Ray 03/16/17 0000 Signed Impressions: Service Date/Time: Thursday, March 16, 2017 15:18 - CONCLUSION: 1. Mild perihilar infiltrates. 2. Tracheostomy tube remains in good position 4 cm above the geno Eduardo Valenzuela MD Brain MRI 03/14/17 0000 Signed Impressions: Service Date/Time: Tuesday, March 14, 2017 12:41 - CONCLUSION: The signal abnormality and enhancement within the bilateral occipital lobes and colin have decreased since the prior examinations. No new abnormality is identified. There is no new enhancing area or signs of a recent ischemia. Glen Gordon MD Chest CT 03/10/17 0000 Signed Impressions: Service Date/Time: Friday, March 10, 2017 21:00 - CONCLUSION: 1. Periaortic soft tissue along the proximal descending thoracic aorta not previously seen. This represents either lymphomatous involvement or adjacent consolidated airspace disease. 2. Mild bilateral airspace disease 3. No evidence of significant lymphadenopathy involving the mediastinum, hilar regions, axillas or supraclavicular lore chain. 4. Tracheostomy tube in place. Ernesto Kulkarni MD Abdomen/Pelvis CT 02/27/17 0000 Signed Impressions: Service Date/Time: February 02:24 - CONCLUSION: 1. Abdominal aortic aneurysm. 2. Bladder mass is noted on the right posteriorly with apparent extravesical extension and clot formation. 3. Left renal cyst. 4. Left lower lobe atelectasis. 5. Large sacral decubitus ulcer with bony destruction and sclerosis of the sacrum mid to left lateral portion in the region of S3 and inferiorly which would suggest chronic osteomyelitis in the appropriate clinical setting. Rajan Granados MD Soft Tissue Ultrasound 02/26/17 0000 Signed Impressions: Service Date/Time: Sunday, February 26, 2017 12:52 - CONCLUSION: 1. Just inferior to the G-tube in the left abdomen, there is a superficial 3.8 x 2.9 0.9 cm complex fluid collection in the subcutaneous tissues. 2. Findings are nonspecific. This could represent a small seroma or abscess. Would consider CT scan of the abdomen without contrast for further evaluation to determine if there is intraperitoneal extension. Bobby Gray MD Gastrostomy Tube Placement 02/25/17 0000 Signed Impressions: Service Date/Time: Saturday, February 25, 2017 14:19 - CONCLUSION: Uncomplicated exchange of gastroenteric feeding tube for gastrostomy tube as above. Positioning confirmed. The tube can be used immediately. Glen Zamora MD Tube Change 02/14/17 0000 Signed Impressions: Service Date/Time: Tuesday, February 14, 2017 00:00 - CONCLUSION: Uncomplicated gastrojejunostomy tube exchange as above. Scott Griffin MD Head CT 6/22/17 0000 Signed Impressions: Service Date/Time: December 17:43 - CONCLUSION: 1. No acute hemorrhage or mass effect. 2. 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 3. Atrophy. Gerald Mukherjee MD CT Angiography 01/09/17 0000 Signed Impressions: Service Date/Time: December 17:49 - CONCLUSION: 1. No evidence of pulmonary emboli. 2. Patchy consolidation in both posterior lower lobes right greater than left. This could represent pneumonia. 3. 2 small noncalcified pulmonary nodules which are nonspecific finding. Short-term CT followup is recommended beginning in 6 months with a noncontrast outpatient CT. Gerald Mukherjee MD Tube Check 12/04/16 0000 Signed Impressions: Service Date/Time: Sunday, December 04, 2016 17:58 - CONCLUSION: Uncomplicated tube injection as above. the tube is in good position and functions normally. Moises Ramírez MD Abdomen X-Ray 08/31/16 0000 Signed Impressions: Service Date/Time: Wednesday, August 31, 2016 16:36 - CONCLUSION: 1. No acute findings. Mild constipation. Durga Dotson MD Head Magnetic Resonance Angiography 03/05/16 0000 Signed Impressions: Service Date/Time: Saturday, March 05, 2016 09:26 - CONCLUSION: Persistent high-grade subtotal occlusive stenotic lesions in the distal right vertebral artery and proximal basilar artery with significant improvement in flow and recanalization following initial presentation of thrombosis. Stable interstitial circulation without significant stenosis. Ernesto Kulkarni MD Neck Magnetic Resonance Angiography 12/22/15 1445 Signed Impressions: Service Date/Time: Tuesday, December 22, 2015 09:22 - CONCLUSION: Variant origin of the left vertebral artery from the aortic arch. No evidence of carotid stenosis. Glen Zamora MD Head/Brain Mag Res Venography 12/22/15 0000 Signed Impressions: Service Date/Time: Tuesday, December 22, 2015 09:22 - CONCLUSION: Normal MRV. Jonel Jones Jr., MD Procedures * 01/01 tracheostomy, PEG tube placement . 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; EEG indicates encephalopathy, neuro following patient felt to be in a "locked-in "state (2) Non-Hodgkin lymphoma Comment: -In remission status post chemotherapy completed May 2015 (3) Acute respiratory failure Comment: Pulmonology following, medical management (4) A-fib (5) Status post stereotactic brain biopsy (6) Brain lesion Comment: Status post biopsy November 2015; pathology consistent with acute infarct without evidence of lymphoma (7) DM (diabetes mellitus) Symptom Scale: (1) Dysphagia (2) Dyspnea (3) Encephalopathy (4) Malnutrition (5) Depression Pertinent Non-Medical Issues * Psychosocial:Mr. Flores is originally from [place]. He moved to the around 35 years ago, first to [place] and later to [place]. He is not legally but remains with his ex-, Leanne. They have been together for 31+ years and have three children together: Leanne, Gerald, and Ginny. Gerald is currently in [facility] for work. Mr. Flores has 2 brothers and 7 sisters. His father is of old age. His mother is alive and was living with the patient. Greatly enjoys his family. Retired. 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 * Spiritual: * Legal:Patient due to clinical condition is currently unable to participate in medical decision making. Not clear he will regain this ability. Family does not believe he has completed advance directives. per [place] Statutes, medical proxy decision making would fall to the majority of adult children, as Mr. Flores is not legally . His ex Leanne and children ALL participate in decision making, with dtr Leanne and ex Leanne serving as primary points of contact. * Ethical issues impacting care: Important Contacts Leanne, daughter: [phone] Ginny, daughter: [phone] Gerald Flores, son: currently in [facility] for work but has communication with his siblings. Leanne, ex-: [phone] . Prognosis This patient has had 20 day hospital course thus far, admitted on 62 for a large brainstem infarct, bilateral occipital infarcts. He has subsequently had ongoing encephalopathy and severe communication limitations, neurology feels he is in a "locked-in "state. He has suffered from respiratory failure likely secondary to significant CVA. Appears he should be able to survive this acute hospitalization, however not clear when or if he will regain ability to communicate, based on current assessments patient will require long-term care placement. He will remain high risk for potential competition/setbacks due to immobile status including infections, DVT etc. . Code Status: Alternative Code Plan * Legal decision maker - Of note per [place] Statutes, medical proxy decision making would fall to the majority of adult children, as Mr. Flores is not legally . His ex Leanne and children ALL participate in decision making, with dtr Leanne and ex Leanne serving as primary points of contact. * * GOALS: 03/17/17 met with ex- Leanne at length today. See subjective for additional detail. In summary:Patient ex- verbalizes that she is now beginning to think that they could be reflecting potential suffering by proceeding with palliative radiation. She shares that the patient has moments of what they feel is pretty clear interaction with the family and that he has wanted to fight and proceed with treatments during his prolonged hospital course up until this point. She feels the patient understands overall poor prognosis related to new cancer findings, and she is not certain he would wish to proceed with radiation. For the most part his mother has been the one most reluctant to not pursue further aggressive measures and she and the children have begun to discuss if they should proceed with radiation however they do not think patient mother will accept or allow this. She is appropriately tearful at times, and indicates that she understands the gravity of current cancer diagnoses and is leaning towards comfort measures however is also struggling to "withhold "nutrition etc. she would not want him to feel hungry. Much exploration with her of end-of-life process. Questions answered to the best my ability. I offered ongoing support and follow-up to her and the rest of the family. Review with her resuscitation status, and that they as a family could elect to change to full DNR to allow the past comfortably should he again experienced respiratory compromiseshe indicates they will talk as a family and she will notify me or they will notify me if they elect DNR status for him. * CODE STATUSalt code-- vent only * Symptoms: == Dysphagia--Status post significant CVA, has had PEG tube placed; no improvement per ST following --prev. trial with a passy mikey valve, patient with no response or attempt to verbalize--intermittently w copoius secretions. ST signed off == Dyspnea --Respiratory failure secondary to CVA, status post tracheostomy, pulmonary following; currently no apparent distress/ O2 sats / O2 requirements stable--O2 sat stable; in ICU briefly last month, required vent, now stable on 28% FiO2 to T piece. 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 == Malnutrition--Status post PEG tube placement. currently tolerating TF; having bowel movements,- s/p GJ tube . Multiple episodes of GJ tube clogs, currently functioning well. 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 Has morphine 1 mg prn for pain, dressing changes etc. also has Tylenol with Codeine available. Last dose morphine 10/22, last dose Tylenol with codeine 03/13. == Nausea/emesis--pt with 2 episodes of coughing and emesis yesterday. Treated with Zofran with some relief. No further episodes reported today. * Palliative care will continue to follow during hospital course as condition evolves, to assist patient/decision-maker with understanding of medical conditions, weighing benefits/burdens of treatment options, for clarification of goals of treatment. Additionally will assist with any symptoms of palliative concern Time Spent Total Floor Time (mins): 60 >50% Counseling/Coord of Care: Yes (discussed with primary nurse, medical attending PA) Attestation To help prompt me to consider important information that might be impacting today's encounter and assessment, information from prior notes written by myself or my colleagues may have been "brought forward" into today's note. My signature on this note, however, is an attestation that I personally performed the exam, history, and/or decision-making noted today, and, unless otherwise indicated, the interactions with patient, family, and staff as well as the review of records all occurred today. I also attest that the listed assessment and stated plan reflect my best clinical judgment today based on the combination of historical information, prior notes, and today's exam/ interactions. When time spent is documented, it refers only to time spent today by the signer, or if indicated, combined time spent today by collaborating physician/nurse practitioner. Tiara Colin Mar 17, 2017 15:55
[2017-03-17 15:58] LABS: BICARBONATE 24.2 MEQ/L (21.0-32.0); POTASSIUM 4.2 MEQ/L (3.5-5.1)
[2017-03-17 16:00] VITALS: BP 108/65; PULSE 106; RESP 20; TEMP 98.2; O2SAT 97
[2017-03-17] MEDS: SENNOSIDES SYRUP 8.8 MG/5 ML CUP PEG SCH (16:00)
[2017-03-17] MEDS: PARoxetine HCL SUSP 20 MG/10 ML UDC PEG SCH (17:55)
[2017-03-17 20:00] VITALS: BP 117/80; PULSE 112; RESP 20; TEMP 98.3; O2SAT 98
--- NOTE | 2017-03-17 23:36 | HHI.IDPN ---
Subjective Subjective Remarks IDelayed entry - pt was seen ealier today in pm ID reconsulted PEG tube site cellulitis. aparently emesis, TF were off no fever cont to cough vigourously Unchanged mental status Antibiotics po levaquin 500 Lines Peripheral IV Past Medical History Hypertension. Stage III non-Hodgkin's lymphoma. Diabetes mellitus. Paroxysmal atrial fibrillation. Brain biopsy in Nov, 2015. History of left arm surgery. 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 Vital Signs Date Time Temp Pulse Resp B/P (MAP) Pulse Ox O2 Delivery O2 Flow Rate FiO2 03/17/17 20:00 98.3 112 20 117/80 (92) 98 03/17/17 16:00 98.2 106 20 108/65 (79) 97 03/17/17 12:00 97.7 121 20 123/70 (87) 98 03/17/17 08:34 95 T-piece 6.00 40 03/17/17 08:00 98.0 109 19 109/69 (82) 98 03/17/17 07:54 Trach Collar 6.00 40 T-Piece 03/17/17 00:00 99.5 108 18 97/60 (72) 96 03/17/17 03/17/17 03/18/17 15:00 23:00 07:00 Intake Total 200 ml Output Total 450 ml Balance 200 ml -450 ml IV Total 0 ml Tube Feeding 0 ml Other 200 ml Output Urine Total 450 ml Bladder Scan Volume Amount 999 ml # Bowel Movements 1 . Laboratory Tests Test 03/16/17 16:14 03/17/17 14:38 White Blood Count 7.3 TH/MM3 7.0 TH/MM3 Red Blood Count 3.75 MIL/MM3 3.51 MIL/MM3 Hemoglobin 8.1 GM/DL 7.6 GM/DL Hematocrit 26.8 % 25.1 % Mean Corpuscular Volume 71.5 FL 71.7 FL Mean Corpuscular Hemoglobin 21.7 PG 21.8 PG Mean Corpuscular Hemoglobin Concent 30.4 % 30.4 % Red Cell Distribution Width 20.4 % 20.3 % Platelet Count 252 TH/MM3 220 TH/MM3 Mean Platelet Volume 8.2 FL 8.1 FL Neutrophils (%) (Auto) 78.2 % Lymphocytes (%) (Auto) 13.4 % Monocytes (%) (Auto) 6.1 % Eosinophils (%) (Auto) 1.3 % Basophils (%) (Auto) 1.0 % Neutrophils # (Auto) 5.7 TH/MM3 Lymphocytes # (Auto) 1.0 TH/MM3 Monocytes # (Auto) 0.4 TH/MM3 Eosinophils # (Auto) 0.1 TH/MM3 Basophils # (Auto) 0.1 TH/MM3 CBC Comment DIFF FINAL Differential Comment Laboratory Tests Test 03/16/17 16:14 03/17/17 14:38 Blood Urea Nitrogen 24 MG/DL 24 MG/DL Creatinine 1.30 MG/DL 1.21 MG/DL Random Glucose 129 MG/DL 116 MG/DL Total Protein 9.2 GM/DL Albumin 2.4 GM/DL Calcium Level 9.0 MG/DL 9.1 MG/DL Alkaline Phosphatase 84 U/L Aspartate Amino Transf (AST/SGOT) 36 U/L Alanine Aminotransferase (ALT/SGPT) 13 U/L Total Bilirubin 0.3 MG/DL Sodium Level 135 MEQ/L 133 MEQ/L Potassium Level 3.9 MEQ/L 4.2 MEQ/L Chloride Level 98 MEQ/L 98 MEQ/L Carbon Dioxide Level 24.0 MEQ/L 24.2 MEQ/L Anion Gap 13 MEQ/L 11 MEQ/L Estimat Glomerular Filtration Rate 56 ML/MIN 61 ML/MIN Microbiology Date/Time Source Procedure Growth Status 03/16/17 16:21 Blood Peripheral Aerobic Blood Culture - Preliminary NO GROWTH IN 1 DAY Resulted 03/16/17 16:21 Blood Peripheral Anaerobic Blood Culture - Preliminary NO GROWTH IN 1 DAY Resulted 03/16/17 16:14 Blood Peripheral Aerobic Blood Culture - Preliminary NO GROWTH IN 1 DAY Resulted 03/16/17 16:14 Blood Peripheral Anaerobic Blood Culture - Preliminary NO GROWTH IN 1 DAY Resulted Imaging Last Impressions Chest X-Ray 03/16/17 0000 Signed Impressions: Service Date/Time: Thursday, March 16, 2017 15:18 - CONCLUSION: 1. Mild perihilar infiltrates. 2. Tracheostomy tube remains in good position 4 cm above the geno Eduardo Valenzuela MD Brain MRI 03/14/17 0000 Signed Impressions: Service Date/Time: Tuesday, March 14, 2017 12:41 - CONCLUSION: The signal abnormality and enhancement within the bilateral occipital lobes and colin have decreased since the prior examinations. No new abnormality is identified. There is no new enhancing area or signs of a recent ischemia. Glen Gordon MD Chest CT 03/10/17 0000 Signed Impressions: Service Date/Time: Friday, March 10, 2017 21:00 - CONCLUSION: 1. Periaortic soft tissue along the proximal descending thoracic aorta not previously seen. This represents either lymphomatous involvement or adjacent consolidated airspace disease. 2. Mild bilateral airspace disease 3. No evidence of significant lymphadenopathy involving the mediastinum, hilar regions, axillas or supraclavicular lore chain. 4. Tracheostomy tube in place. Ernesto Kulkarni MD Abdomen/Pelvis CT 02/27/17 0000 Signed Impressions: Service Date/Time: February 02:24 - CONCLUSION: 1. Abdominal aortic aneurysm. 2. Bladder mass is noted on the right posteriorly with apparent extravesical extension and clot formation. 3. Left renal cyst. 4. Left lower lobe atelectasis. 5. Large sacral decubitus ulcer with bony destruction and sclerosis of the sacrum mid to left lateral portion in the region of S3 and inferiorly which would suggest chronic osteomyelitis in the appropriate clinical setting. Rajan Granados MD Soft Tissue Ultrasound 02/26/17 0000 Signed Impressions: Service Date/Time: Sunday, February 26, 2017 12:52 - CONCLUSION: 1. Just inferior to the G-tube in the left abdomen, there is a superficial 3.8 x 2.9 0.9 cm complex fluid collection in the subcutaneous tissues. 2. Findings are nonspecific. This could represent a small seroma or abscess. Would consider CT scan of the abdomen without contrast for further evaluation to determine if there is intraperitoneal extension. Bobby Gray MD Gastrostomy Tube Placement 02/25/17 0000 Signed Impressions: Service Date/Time: Saturday, February 25, 2017 14:19 - CONCLUSION: Uncomplicated exchange of gastroenteric feeding tube for gastrostomy tube as above. Positioning confirmed. The tube can be used immediately. Glen Zamora MD Tube Change 02/14/17 0000 Signed Impressions: Service Date/Time: Tuesday, February 14, 2017 00:00 - CONCLUSION: Uncomplicated gastrojejunostomy tube exchange as above. Scott Griffin MD Head CT 01/09/17 0000 Signed Impressions: Service Date/Time: December 17:43 - CONCLUSION: 1. No acute hemorrhage or mass effect. 2. 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 3. Atrophy. Gerald Mukherjee MD CT Angiography 01/09/17 0000 Signed Impressions: Service Date/Time: December 17:49 - CONCLUSION: 1. No evidence of pulmonary emboli. 2. Patchy consolidation in both posterior lower lobes right greater than left. This could represent pneumonia. 3. 2 small noncalcified pulmonary nodules which are nonspecific finding. Short-term CT followup is recommended beginning in 6 months with a noncontrast outpatient CT. Gerald Mukherjee MD Tube Check 12/04/16 0000 Signed Impressions: Service Date/Time: Sunday, December 04, 2016 17:58 - CONCLUSION: Uncomplicated tube injection as above. the tube is in good position and functions normally. Moises Ramírez MD Abdomen X-Ray 08/31/16 0000 Signed Impressions: Service Date/Time: Wednesday, August 31, 2016 16:36 - CONCLUSION: 1. No acute findings. Mild constipation. Durga Dotson MD Head Magnetic Resonance Angiography 03/05/16 0000 Signed Impressions: Service Date/Time: Saturday, March 05, 2016 09:26 - CONCLUSION: Persistent high-grade subtotal occlusive stenotic lesions in the distal right vertebral artery and proximal basilar artery with significant improvement in flow and recanalization following initial presentation of thrombosis. Stable interstitial circulation without significant stenosis. Ernesto Kulkarni MD Neck Magnetic Resonance Angiography 12/22/15 1445 Signed Impressions: Service Date/Time: Tuesday, December 22, 2015 09:22 - CONCLUSION: Variant origin of the left vertebral artery from the aortic arch. No evidence of carotid stenosis. Glen Zamora MD Head/Brain Mag Res Venography 12/22/15 0000 Signed Impressions: Service Date/Time: Tuesday, December 22, 2015 09:22 - CONCLUSION: Normal MRV. Jonel Jones Jr., MD Physical Exam GENERAL: eyes opened , NAD SKIN: Warm to touch and dry. No generalized rash HEENT: [place] conjunctiva. . No scleral icterus. No injection or drainage. Mucous membranes pink and moist. NECK: Tracheostomy site looks okay. No secretions in the tubings noted coughing trying to bring up some tenetoious secretions CARDIOVASCULAR: Regular rate and rhythm. No murmur or rub. RESPIRATORY: clear to auscultation ABDOMEN: Soft, obese, non-tender, not distended. PEG site with small area of macerated scin, purulent drainage - small amount BS (+) normoactive EXTREMITIES: No clubbing, cyanosis. MIld pedal edema. Warm, and well perfused NEUROLOGICAL: resting , not following. Eyes opened, tracks MS is at b/l PSYCH: Unable to assess ; lopez in place, urine looks clear LINE: Peripheral IV with no evidence of infection Assessment & Plan Remarks IMPRESSION Fever sepsis CVA, with significant neurologic sequela Hx NHL Acute VDRF -resolved; chronic resp failure, on piece PSAE in sputum and urine likely colonization. Small perihilar infiltrate is present stage IV decub with no e/o infx Superficial appaering PEG anne marie infection, Kleb pneumo S levaquinr RECOMMENDATION cont oral Levaquin short 5 day course (risk of Cdiff activation with any antibiotic) Consult Wound ostomy nurse. If fevers persist get blood cultures. sputum clx if fever or worse cough pr resp status dw RN kenna mother @ Violetta Cid MD Mar 17, 2017 23:36
[2017-03-18] VITALS (7 sets, daily range): BP systolic 17–132; BP diastolic 65–119; PULSE 104–118; RESP 16–20; TEMP 95.8–99.5; O2SAT 97–98
[2017-03-18] MEDS: HYOSCYAMINE 0.125 MG TAB G-TUBE SCH ×4 (02:07→21:34)
[2017-03-18] MEDS: HEPARIN SODIUM - SQ 10,000 UNITS/ML VIAL SQ SCH ×3 (04:41→21:33)
[2017-03-18] MEDS: ACETIC ACID 0.25% SOLN 1000 ML IRR BTL IRRIGATION SCH ×3 (04:41→21:34)
[2017-03-18] MEDS: BACITRACIN OINT 0.9 GM PKT TOPICAL SCH (09:00)
[2017-03-18] MEDS: SODIUM CHLORIDE 0.65% NASAL SPRAY 45 ML BTL NASAL SCH ×2 (09:00→20:04)
[2017-03-18] MEDS: NYSTATIN 100,000 U/GM PWD 15 GM BTL TOPICAL SCH ×2 (09:00→20:04)
[2017-03-18] MEDS: JUVEN POWDER 1 PACK G-TUBE SCH ×2 (09:00→20:04)
[2017-03-18] MEDS: levETIRAcetam 500 MG/5 ML UDC TUBE SCH ×2 (09:11→20:04)
[2017-03-18] MEDS: LEVOFLOXACIN 500 MG TAB PO SCH (09:11)
[2017-03-18] MEDS: FERROUS SULFATE 300 MG /5ML UDC PO SCH (09:11)
[2017-03-18] MEDS: DILTIAZEM HCL 30 MG TAB PEG SCH ×4 (09:11→20:25)
[2017-03-18] MEDS: LANSOPRAZOLE SOLUTAB 30 MG TAB NG SCH ×2 (09:11→20:04)
[2017-03-18] MEDS: ASCORBIC ACID 500 MG TAB PO SCH (09:11)
[2017-03-18] MEDS: ARTIFICIAL TEARS OPTH SOLN 15 ML BTL EACH EYE SCH ×2 (09:12→20:04)
[2017-03-18] MEDS: BACITRACIN TOP OINT 15 GM TUBE TOP SCH ×2 (09:13→20:04)
--- NOTE | 2017-03-18 14:25 | HHI.PR ---
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 Patient seen and examined today. Mother and sister are at the bedside. No acute issues overnight. Discussed with nursing staff. Objective Vitals Vital Signs Date Time Temp Pulse Resp B/P (MAP) Pulse Ox O2 Delivery O2 Flow Rate FiO2 03/18/17 12:00 99.5 104 16 102/65 (77) 97 03/18/17 09:30 97 T-piece 5.00 28 03/18/17 08:00 95.8 110 16 119/65 (83) 97 03/18/17 00:29 Trach Collar 6.00 03/18/17 00:00 98.7 118 20 132/74 (93) 98 03/17/17 20:00 98.3 112 20 117/80 (92) 98 03/17/17 16:00 98.2 106 20 108/65 (79) 97 I/O 03/17/17 03/17/17 03/17/17 03/18/17 03/18/17 03/18/17 06:59 14:59 22:59 06:59 14:59 22:59 Intake Total 0 ml 200 ml 150 ml 100 ml Output Total 900 ml 450 ml 450 ml Balance -900 ml 200 ml -300 ml -350 ml Intake Oral 0 ml IV Total 0 ml Tube Feeding 0 ml Other 200 ml 150 ml 100 ml Output Urine Total 900 ml 450 ml 450 ml Bladder Scan Volume Amount 999 ml # Bowel Movements 1 1 Result Diagram: 03/17/17 1438 03/17/17 1438 Imaging Last Impressions Chest X-Ray 03/16/17 0000 Signed Impressions: Service Date/Time: Thursday, March 16, 2017 15:18 - CONCLUSION: 1. Mild perihilar infiltrates. 2. Tracheostomy tube remains in good position 4 cm above the geno Eduardo Valenzuela MD Brain MRI 03/14/17 0000 Signed Impressions: Service Date/Time: Tuesday, March 14, 2017 12:41 - CONCLUSION: The signal abnormality and enhancement within the bilateral occipital lobes and colin have decreased since the prior examinations. No new abnormality is identified. There is no new enhancing area or signs of a recent ischemia. Glen Gordon MD Chest CT 03/10/17 0000 Signed Impressions: Service Date/Time: Friday, March 10, 2017 21:00 - CONCLUSION: 1. Periaortic soft tissue along the proximal descending thoracic aorta not previously seen. This represents either lymphomatous involvement or adjacent consolidated airspace disease. 2. Mild bilateral airspace disease 3. No evidence of significant lymphadenopathy involving the mediastinum, hilar regions, axillas or supraclavicular lore chain. 4. Tracheostomy tube in place. Ernesto Kulkarni MD Abdomen/Pelvis CT 02/27/17 0000 Signed Impressions: Service Date/Time: February 02:24 - CONCLUSION: 1. Abdominal aortic aneurysm. 2. Bladder mass is noted on the right posteriorly with apparent extravesical extension and clot formation. 3. Left renal cyst. 4. Left lower lobe atelectasis. 5. Large sacral decubitus ulcer with bony destruction and sclerosis of the sacrum mid to left lateral portion in the region of S3 and inferiorly which would suggest chronic osteomyelitis in the appropriate clinical setting. Rajan Granados MD Soft Tissue Ultrasound 02/26/17 0000 Signed Impressions: Service Date/Time: Sunday, February 26, 2017 12:52 - CONCLUSION: 1. Just inferior to the G-tube in the left abdomen, there is a superficial 3.8 x 2.9 0.9 cm complex fluid collection in the subcutaneous tissues. 2. Findings are nonspecific. This could represent a small seroma or abscess. Would consider CT scan of the abdomen without contrast for further evaluation to determine if there is intraperitoneal extension. Bobby Gray MD Gastrostomy Tube Placement 02/25/17 0000 Signed Impressions: Service Date/Time: Saturday, February 25, 2017 14:19 - CONCLUSION: Uncomplicated exchange of gastroenteric feeding tube for gastrostomy tube as above. Positioning confirmed. The tube can be used immediately. Glen Zamora MD Tube Change 02/14/17 0000 Signed Impressions: Service Date/Time: Tuesday, February 14, 2017 00:00 - CONCLUSION: Uncomplicated gastrojejunostomy tube exchange as above. Scott Griffin MD Head CT 01/09/17 0000 Signed Impressions: Service Date/Time: December 17:43 - CONCLUSION: 1. No acute hemorrhage or mass effect. 2. 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 3. Atrophy. Gerald Mukherjee MD CT Angiography 01/09/17 0000 Signed Impressions: Service Date/Time: December 17:49 - CONCLUSION: 1. No evidence of pulmonary emboli. 2. Patchy consolidation in both posterior lower lobes right greater than left. This could represent pneumonia. 3. 2 small noncalcified pulmonary nodules which are nonspecific finding. Short-term CT followup is recommended beginning in 6 months with a noncontrast outpatient CT. Gerald Mukherjee MD Tube Check 12/04/16 0000 Signed Impressions: Service Date/Time: Sunday, December 04, 2016 17:58 - CONCLUSION: Uncomplicated tube injection as above. the tube is in good position and functions normally. Moises Ramírez MD Abdomen X-Ray 08/31/16 0000 Signed Impressions: Service Date/Time: Wednesday, August 31, 2016 16:36 - CONCLUSION: 1. No acute findings. Mild constipation. Durga Dotson MD Head Magnetic Resonance Angiography 03/05/16 0000 Signed Impressions: Service Date/Time: Saturday, March 05, 2016 09:26 - CONCLUSION: Persistent high-grade subtotal occlusive stenotic lesions in the distal right vertebral artery and proximal basilar artery with significant improvement in flow and recanalization following initial presentation of thrombosis. Stable interstitial circulation without significant stenosis. Ernesto Kulkarni MD Neck Magnetic Resonance Angiography 12/22/15 1445 Signed Impressions: Service Date/Time: Tuesday, December 22, 2015 09:22 - CONCLUSION: Variant origin of the left vertebral artery from the aortic arch. No evidence of carotid stenosis. Glen Zamora MD Head/Brain Mag Res Venography 12/22/15 0000 Signed Impressions: Service Date/Time: Tuesday, December 22, 2015 09:22 - CONCLUSION: Normal MRV. Jonel Jones Jr., MD Objective Remarks GENERAL: WDWN male, in no apparent distress. Nonverbal. Awake. Lying in hospital bed. Mother and sister at the bedside. SKIN: Warm and dry. No rash noted. HEENT: Normocephalic. Eyes non-icteric without injection or drainage. Nose without bleeding. NECK: Trachea midline. T-tube in place, site clean, dry, intact. CARDIOVASCULAR: Regular rate and rhythm without murmurs, gallops, or rubs. RESPIRATORY: Coarse BS. No accessory muscle use. GASTROINTESTINAL: Abdomen soft, non-tender, nondistended. BS active x [address] quads[address] tube in place, some purulence noted around tube site. Also area of erythema with scant amount of purulent drainage just below GJ tube. : Lopez catheter in place with clear yellow urine in the bag. MUSCULOSKELETAL: Extremities without clubbing, cyanosis, Bilateral feet +1 edema. Upper extremities slightly edematous. NEUROLOGICAL: Awake. Patient not following commands but appears to track intermittently. Nonverbal. Procedures 07/22/2016 Wide excision of sacral skin wound, biopsy of the cavity lining and debridement. PEG removal and Gj tube placement 07/29/16 VAC changes- M-W-F 10/23/16, 11/18, 12/31- GJ tube replacement 01/02/16 PEG placement 01/02/16 tracheostomy 02/25/17 PEG replacement 03/03/17 Cystoscopy and palliative transurethral resection of bladder tumor greater than 5cm originating from the right bladder wall Medications and IVs Current Medications Medications (Trade) Dose Ordered Sig/Junior Route Start Time Stop Time Status Last Admin (NS Flush) 2 ml UNSCH PRN IVF 12/21/15 06:00 09/28/16 21:18 (Keppra Liq) 500 mg Q12HR TUBE 12/27/15 21:00 03/18/17 09:11 (Tylenol 650 Mg/ 20 ml Liq) 650 mg Q6H PRN TUBE 12/30/15 15:15 03/16/17 14:22 (Mycostatin Powder) 1 applic Q12HR TOPICAL 01/08/16 21:00 03/18/17 09:00 (Pill Splitter) 1 ea UNSCH PRN OTHER 01/14/16 08:30 (Acetic Acid 0.25% Irr Btl) 10 ml Q8HR IRRIGATION 02/05/16 16:00 03/18/17 04:41 (Paxil Liq) 20 mg DAILY@1900 PEG 03/12/16 19:00 Future hold 03/17/17 17:55 (Zofran Inj) 4 mg Q6HR PRN IV PUSH 04/14/16 19:45 03/16/17 16:00 (Xopenex Neb) 0.63 mg Q4HR NEB PRN NEB 05/05/16 12:00 03/06/17 10:45 (Aspirin) 325 mg DAILY TUBE 05/27/16 11:40 Future Hold 02/25/17 08:28 (Heparin Inj) 5,000 units Q8HR SQ 06/11/16 14:00 Future hold 03/18/17 04:41 (Baciguent Oint) 1 applic BID TOP 07/20/16 10:00 03/18/17 09:13 ([place]) 1 spray BID NASAL 08/01/16 21:00 03/18/17 09:00 (Tears Naturale Opth Soln) 1 drop BID EACH EYE 09/05/16 21:00 03/18/17 09:12 (Morphine Inj) 1 mg Q24H PRN IV PUSH 09/17/16 14:30 10/22/16 02:00 (Dulcolax Supp) 10 mg DAILY PRN RECTAL 09/26/16 15:30 12/08/16 09:17 (Tylenol - Codeine 120-12 Liq) 5 ml Q4H PRN G-TUBE 12/27/16 15:30 03/13/17 13:51 (Imodium Liq) 2 mg Q6H PRN PEG 12/27/16 15:30 03/13/17 20:30 (Milk Of Magnesia Liq) 30 ml DAILY PRN PEG 12/27/16 15:30 02/11/17 08:46 (Milk Of Magnesia Liq) 30 ml DAILY PEG 12/28/16 09:00 Future Hold 01/19/17 08:44 (Senna Liq) 8.8 mg DAILY@1600 PEG 12/27/16 16:00 03/15/17 15:32 (Lactulose Liq) 30 ml DAILY PRN PEG 12/27/16 15:30 (Cardizem) 30 mg QID PEG 01/09/17 18:00 03/18/17 09:11 (D50w (Vial) Inj) 50 ml UNSCH PRN IV 01/09/17 16:00 (Glucagon Inj) 1 mg UNSCH PRN OTHER 01/09/17 16:00 (Prevacid Odt) 30 mg BID NG 01/26/17 21:00 03/18/17 09:11 (Ashish Powder) 1 pack BID G-TUBE 02/10/17 21:00 03/18/17 09:00 (Ferrous Sulfate Liq) 300 mg DAILY PO 02/14/17 09:00 03/18/17 09:11 (Vitamin C) 1,000 mg DAILY PO 02/14/17 09:00 03/18/17 09:11 (Bacitracin Oint Packet) 0.9 gm DAILY TOPICAL 02/25/17 09:00 03/17/17 09:00 (Levaquin) 500 mg DAILY PO 03/15/17 16:00 03/18/17 09:11 (Levsin) 0.25 mg Q4H G-TUBE 03/16/17 14:00 03/18/17 09:11 Date of Insertion: Mar 03, 2017 A/P Problem List: (1) CVA (cerebral vascular accident) ICD Code: I63.9 - Cerebral infarction, unspecified Status: Acute (2) A-fib ICD Code: I48.91 - Unspecified atrial fibrillation Status: Chronic (3) DM (diabetes mellitus) ICD Code: E11.9 - Type 2 diabetes mellitus without complications Status: Chronic Assessment and Plan 60 year-old male with past medical history of paroxysmal A. fib, hypertension, stage III non-Hodgkin's lymphoma status post chemotherapy who came into the hospital with altered mental status. Emesis several days ago - no recurrence - VSS, afebrile - CXR personally reviewed showing no acute change - white count WNL. Blood CX shows no growth x 2 days. - resume TF. Transportation Security Officer consulted. PEG tube site cellulitis - ID following, appreciate their assistance - wound culture positive for Kleb pneumo sensitive to Levaquin - continue on po Levaquin x 5 days per ID - wound care following Bladder cancer - s/p bladder bx positive for small cell carcinoma. - CT of the abdomen showed bladder mass right posteriorly with apparent extravesical extension and clot formation. - Urology spoke with family member, daughter, states that he's not recommending biopsy of the bladder mass. However daughter insisted on biopsy. Patient s/p cystoscopy and palliative transurethral resection of bladder tumor greater than 5 cm originating from right bladder wall performed by Dr. Sewell . 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 Dr. Pruitt discussed at length with sister and daughter at the bedside who have requested consultations from Urology and Oncology to consider all the options available. Oncology consult placed. Requested nursing staff reach out to Dr. Springer to discuss results/options. - Oncology following - appreciate their assistance. Family requesting aggressive therapy. CT chest negative for malignancy. MRI completed. Patient is not a candidate for chemotherapy. Family considering palliative XRT. - Palliative care following - Continue to flush lopez catheter PRN. 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 Intermittently tracks with eyes. - Continue Keppra 500mg BID for seizure prophylaxis. Keppra level 17.8. - PT/OT signed off as patient is unable to participate. - On Paxil 20 by mouth daily for depression. - On acetaminophen with codeine for pain scale of 2-10. - Morphine 1 mg every 24 hours when necessary for dressing change Chronic respiratory failure secondary to CVA - Status post tracheostomy. Continue pulmonary toilet and bronchodilators as needed. Continue trach care, suctioning. Increased secretions improved with scheduled Levsin. Decreased dosing of scheduled Levsin to q8h. - Trach changed to size #6 XLT on 01/09 - Duo nebs every 4 hours while awake - Pulmonary currently following, appreciate assistance. Atrial fibrillation, controlled Hypertension Dyslipidemia - Continue rate control with Cardizem and metoprolol. - [id number] score 4 - Echocardiogram in November 2015 shows preserved ejection fraction. - Coumadin discontinued secondary to bleeding. - Continue aspirin History of non-Hodgkin's lymphoma - Status post brain biopsy on December 13 by neurosurgery. Pathology consistent with acute infarct without evidence of lymphoma. Diabetes mellitus Type 2 - Hemoglobin A1c is 5.5. - Fingersticks have been stable and were DC'd 02/01/17 Decubitus ulcer stage IV - Continue wound care, twice-daily dressing changes. Wound care recommendations last updated 12/12/16. Continue pressure relief measures including turning and positioning. Patient's family has declined a diverting colostomy. Previous Wound culture growing Klebsiella and Enterococcus Faecalis. Previously on Augmentin. Status post wide excision of sacral skin and biopsy of the cavity lining with debridement on 07/22/16. - Wound care last saw patient on 01/17/17, no new recommendations continue packing with Betadine moistened rolled Janis and covered with ABD pad and paper tape to secure. - Continue to monitor. Continue pressure-relief. - Morphine 1 mg every 24 hours when necessary for dressing change Protein calorie malnutrition Gastroesophageal reflux disease Gastric ulcer, reflux esophagitis Diarrhea, negative for C. difficile. Improved - EGD on 07/30/16 showed gastric ulcers. - On Prevacid 30 mg Q12, on tube feeds(Jevity 1.5 at 55 ml/hr) - Continue bowel regimen with hold parameters, Lactinex and Imodium. - G/J tube clogged, IR consulted to evaluate. Replaced on 02/25/17 Klebsiella/Pseudomonas/staph aureus HCAP PSAE UTI - S/p Cefepime. Monitor for signs of infections. - strep pneumonia and Legionella urinary Ag is negative - C-diff PCR negative on 01/13 - 01/09 BC : Staph Epi, Urine cx: Pseudomonas, Sputum cx: Pseudomonas, kleb, Staph. - Patient was pancultured on 01/19 (Blood, sputum, urine) NGTD in urine and blood. Sputum + for pseudomonas. Likely colonization. Hyponatremia - mild - monitor DVT prophylaxis: SCDs. Heparin 5,000 units sq Q8hr Discussed with nursing staff, mother, sister and Dr. Lala Problem Qualifiers (1) CVA (cerebral vascular accident): (2) DM (diabetes mellitus): Jaz Peraza Mar 18, 2017 14:25
[2017-03-18] MEDS: SENNOSIDES SYRUP 8.8 MG/5 ML CUP PEG SCH (14:27)
--- NOTE | 2017-03-18 15:11 | HHI.PR ---
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 increase cough and congestion yesterday , better today Objective Vital Signs Date Time Temp Pulse Resp B/P (MAP) Pulse Ox O2 Delivery O2 Flow Rate FiO2 03/18/17 12:00 99.5 104 16 102/65 (77) 97 03/18/17 09:30 97 T-piece 5.00 28 03/18/17 08:00 95.8 110 16 119/65 (83) 97 03/18/17 00:29 Trach Collar 6.00 03/18/17 00:00 98.7 118 20 132/74 (93) 98 03/17/17 20:00 98.3 112 20 117/80 (92) 98 03/17/17 16:00 98.2 106 20 108/65 (79) 97 I/O 03/17/17 03/17/17 03/17/17 03/18/17 03/18/17 03/18/17 07:00 15:00 23:00 07:00 15:00 23:00 Intake Total 0 ml 200 ml 150 ml 100 ml Output Total 900 ml 450 ml 450 ml Balance -900 ml 200 ml -300 ml -350 ml Intake Oral 0 ml IV Total 0 ml Tube Feeding 0 ml Other 200 ml 150 ml 100 ml Output Urine Total 900 ml 450 ml 450 ml Bladder Scan Volume Amount 999 ml # Bowel Movements 1 1 Result Diagram: 03/17/17 1438 03/17/17 1438 Procedures 01/02/16 PEG placement 01/02/16 tracheostomy 07/22/2016 Wide excision of sacral skin wound, biopsy of the cavity lining and debridement. PEG tube replacement 07/29/16 Objective Remarks GENERAL: SKIN: Warm and dry. HEAD: Atraumatic. Normocephalic. EYES: Pupils equal and round. No scleral icterus. No injection or drainage. ENT: No nasal bleeding or discharge. Mucous membranes pink and moist. NECK: Trachea midline. No JVD. CARDIOVASCULAR: Regular rate and rhythm. RESPIRATORY: No accessory muscle use. Clear to auscultation. Breath sounds equal bilaterally. GASTROINTESTINAL: Abdomen soft, non-tender, nondistended. Hepatic and splenic margins not palpable. MUSCULOSKELETAL: Extremities without clubbing, cyanosis, or edema. No obvious deformities. NEUROLOGICAL: Awake and alert. No obvious cranial nerve deficits. Motor grossly within normal limits. Five out of 5 muscle strength in the arms and legs. Normal speech. PSYCHIATRIC: Appropriate mood and affect; insight and judgment normal. Laboratory Tests Test 01/05/17 01/06/17 08:35 08:41 Red Blood Count 4.43 MIL/MM3 (4.50-5.90) Hemoglobin 9.9 GM/DL (13.0-17.0) Hematocrit 32.0 % (39.0-51.0) Mean Corpuscular Volume 72.1 FL (80.0-100.0) Mean Corpuscular Hemoglobin 22.3 PG (27.0-34.0) Mean Corpuscular Hemoglobin 30.9 % Concent (32.0-36.0) Red Cell Distribution Width 19.9 % (11.6-17.2) Sodium Level 134 MEQ/L 133 MEQ/L (136-145) (136-145) Random Glucose 136 MG/DL 132 MG/DL (74-106) (74-106) Creatinine 0.59 MG/DL (0.60-1.30) GENERAL: SKIN: Warm and dry. HEAD: Atraumatic. Normocephalic. EYES: Pupils equal and round. No scleral icterus. No injection or drainage. ENT: No nasal bleeding or discharge. Mucous membranes pink and moist. NECK: Trachea midline. No JVD. TRACH. [place] CARDIOVASCULAR: Regular rate and rhythm. RESPIRATORY: No accessory muscle use. Clear to auscultation. Breath sounds equal bilaterally. GASTROINTESTINAL: Abdomen soft, non-tender, nondistended. Hepatic and splenic margins not palpable. MUSCULOSKELETAL: Extremities without clubbing, cyanosis, or edema. No obvious deformities. NEUROLOGICAL: Awake and alert. No obvious cranial nerve deficits. Motor grossly within normal limits. Five out of 5 muscle strength in the arms and legs. Normal speech. PSYCHIATRIC: Appropriate mood and affect; insight and judgment normal. 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 TOILET RT CONSULT PENDING Brandon Taylor MD Mar 18, 2017 15:11
--- NOTE | 2017-03-18 16:13 | PD.WCN.NOT ---
Wound Consult Description: Late entry from 03/17 1830:Received consult for PEG tube site erythema from Doctor Genia Blas Communicated with: RN Yuli 7 [place] and call placed to Doctor Genia Blas Recommendation: Please cleanse around PEG tube site with normal saline and apply drain sponge around tube secure tube and drain sponge with medifix tape change as needed. Please use skin prep before applying adhesives to skin Additional Information: Late entry from 03/17/20171829: Patient seen on [address] [place] for evaluation of PEG tube site erythema. Removed drain sponge in place to reveal mild erythema around PEG tube. Scant amount of yellow thick exudate cleansed off with normal saline to reveal small amount of pink tissue around tube. PEG tube wasn't secured, and patient was laying on part of the tube pulling on it. Erythema noted at 3 o'clock from irritation of tube being pulled on. Encrusted area of skin irritation with stoma powder and skin prep. Applied new drain sponge secured with medifix tape. Secured tube to Patient's dressing to prevent tube being pulled on. Applied skin prep before applying adhesives to skin. Carmen Hsieh [facility] Mar 18, 2017 16:13
[2017-03-18] MEDS: PARoxetine HCL SUSP 20 MG/10 ML UDC PEG SCH (18:33)
[2017-03-18] MEDS: LOPERAMIDE HCL SOLN 2 MG/10 ML UDC PEG PRN (20:25)
[2017-03-19] VITALS (7 sets, daily range): BP systolic 104–115; BP diastolic 54–76; PULSE 104–110; RESP 16–20; TEMP 96.6–98.2; O2SAT 97–100
[2017-03-19] MEDS: HYOSCYAMINE 0.125 MG TAB G-TUBE SCH ×3 (04:59→22:31)
[2017-03-19] MEDS: ACETIC ACID 0.25% SOLN 1000 ML IRR BTL IRRIGATION SCH ×3 (05:00→22:00)
[2017-03-19] MEDS: HEPARIN SODIUM - SQ 10,000 UNITS/ML VIAL SQ SCH ×3 (05:00→22:31)
[2017-03-19] MEDS: ASCORBIC ACID 500 MG TAB PO SCH (07:48)
[2017-03-19] MEDS: DILTIAZEM HCL 30 MG TAB PEG SCH ×5 (07:48→22:30)
[2017-03-19] MEDS: LANSOPRAZOLE SOLUTAB 30 MG TAB NG SCH ×2 (07:49→22:30)
[2017-03-19] MEDS: LEVOFLOXACIN 500 MG TAB PO SCH (07:49)
[2017-03-19] MEDS: FERROUS SULFATE 300 MG /5ML UDC PO SCH (07:49)
[2017-03-19] MEDS: ASPIRIN 325 MG TAB TUBE SCH (07:49)
[2017-03-19] MEDS: BACITRACIN TOP OINT 15 GM TUBE TOP SCH ×2 (07:50→21:00)
[2017-03-19] MEDS: SODIUM CHLORIDE 0.65% NASAL SPRAY 45 ML BTL NASAL SCH ×2 (07:50→21:00)
[2017-03-19] MEDS: ARTIFICIAL TEARS OPTH SOLN 15 ML BTL EACH EYE SCH ×2 (07:50→21:00)
[2017-03-19] MEDS: NYSTATIN 100,000 U/GM PWD 15 GM BTL TOPICAL SCH ×2 (07:51→21:00)
[2017-03-19] MEDS: levETIRAcetam 500 MG/5 ML UDC TUBE SCH ×2 (07:54→22:31)
--- NOTE | 2017-03-19 08:46 | HHI.PR ---
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 Patient seen and examined today. No family at the bedside. Patients eyes are open but not tracking. Does not follow commands. Discussed with Stefani URIARTE who reports no acute issues overnight. She states family is eager to have XRT begin as soon as possible. One soft stool overnight. Objective Vitals Vital Signs Date Time Temp Pulse Resp B/P (MAP) Pulse Ox O2 Delivery O2 Flow Rate FiO2 03/19/17 00:45 98.2 109 20 108/67 (81) 98 03/18/17 21:53 97 T-piece 6.00 28 03/18/17 20:00 97.4 106 20 111/67 (82) 98 03/18/17 20:00 Trach Collar 6.00 03/18/17 16:00 98.7 108 17 100/72 (81) 98 03/18/17 12:00 99.5 104 16 102/65 (77) 97 03/18/17 09:30 97 T-piece 5.00 28 I/O 03/18/17 03/18/17 03/18/17 03/19/17 03/19/17 03/19/17 07:00 15:00 23:00 07:00 15:00 23:00 Intake Total 100 ml 0 ml 459 ml Output Total 450 ml 900 ml 650 ml Balance -350 ml -900 ml -191 ml Intake Oral 0 ml Tube Feeding 359 ml Tube Irrigant 100 ml Other 100 ml Output Urine Total 450 ml 900 ml 650 ml # Bowel Movements 2 2 Result Diagram: 03/17/17 1438 03/17/17 1438 Imaging Last Impressions Chest X-Ray 03/16/17 0000 Signed Impressions: Service Date/Time: Thursday, March 16, 2017 15:18 - CONCLUSION: 1. Mild perihilar infiltrates. 2. Tracheostomy tube remains in good position 4 cm above the geno Eduardo Valenzuela MD Brain MRI 03/14/17 0000 Signed Impressions: Service Date/Time: Tuesday, March 14, 2017 12:41 - CONCLUSION: The signal abnormality and enhancement within the bilateral occipital lobes and colin have decreased since the prior examinations. No new abnormality is identified. There is no new enhancing area or signs of a recent ischemia. Glen Gordon MD Chest CT 03/10/17 0000 Signed Impressions: Service Date/Time: Friday, March 10, 2017 21:00 - CONCLUSION: 1. Periaortic soft tissue along the proximal descending thoracic aorta not previously seen. This represents either lymphomatous involvement or adjacent consolidated airspace disease. 2. Mild bilateral airspace disease 3. No evidence of significant lymphadenopathy involving the mediastinum, hilar regions, axillas or supraclavicular lore chain. 4. Tracheostomy tube in place. Ernesto Kulkarni MD Abdomen/Pelvis CT 02/27/17 0000 Signed Impressions: Service Date/Time: February 02:24 - CONCLUSION: 1. Abdominal aortic aneurysm. 2. Bladder mass is noted on the right posteriorly with apparent extravesical extension and clot formation. 3. Left renal cyst. 4. Left lower lobe atelectasis. 5. Large sacral decubitus ulcer with bony destruction and sclerosis of the sacrum mid to left lateral portion in the region of S3 and inferiorly which would suggest chronic osteomyelitis in the appropriate clinical setting. Rajan Granados MD Soft Tissue Ultrasound 02/26/17 0000 Signed Impressions: Service Date/Time: Sunday, February 26, 2017 12:52 - CONCLUSION: 1. Just inferior to the G-tube in the left abdomen, there is a superficial 3.8 x 2.9 0.9 cm complex fluid collection in the subcutaneous tissues. 2. Findings are nonspecific. This could represent a small seroma or abscess. Would consider CT scan of the abdomen without contrast for further evaluation to determine if there is intraperitoneal extension. Bobby Gray MD Gastrostomy Tube Placement 02/25/17 0000 Signed Impressions: Service Date/Time: Saturday, February 25, 2017 14:19 - CONCLUSION: Uncomplicated exchange of gastroenteric feeding tube for gastrostomy tube as above. Positioning confirmed. The tube can be used immediately. Glen Zamora MD Tube Change 02/14/17 0000 Signed Impressions: Service Date/Time: Tuesday, February 14, 2017 00:00 - CONCLUSION: Uncomplicated gastrojejunostomy tube exchange as above. Scott Griffin MD Head CT 01/09/17 0000 Signed Impressions: Service Date/Time: December 17:43 - CONCLUSION: 1. No acute hemorrhage or mass effect. 2. 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 3. Atrophy. Gerald Mukherjee MD CT Angiography 01/09/17 0000 Signed Impressions: Service Date/Time: December 17:49 - CONCLUSION: 1. No evidence of pulmonary emboli. 2. Patchy consolidation in both posterior lower lobes right greater than left. This could represent pneumonia. 3. 2 small noncalcified pulmonary nodules which are nonspecific finding. Short-term CT followup is recommended beginning in 6 months with a noncontrast outpatient CT. Gerald Mukherjee MD Tube Check 12/04/16 0000 Signed Impressions: Service Date/Time: Sunday, December 04, 2016 17:58 - CONCLUSION: Uncomplicated tube injection as above. the tube is in good position and functions normally. Moises Ramírez MD Abdomen X-Ray 08/31/16 0000 Signed Impressions: Service Date/Time: Wednesday, August 31, 2016 16:36 - CONCLUSION: 1. No acute findings. Mild constipation. Durga Dotson MD Head Magnetic Resonance Angiography 03/05/16 0000 Signed Impressions: Service Date/Time: Saturday, March 05, 2016 09:26 - CONCLUSION: Persistent high-grade subtotal occlusive stenotic lesions in the distal right vertebral artery and proximal basilar artery with significant improvement in flow and recanalization following initial presentation of thrombosis. Stable interstitial circulation without significant stenosis. Ernesto Kulkarni MD Neck Magnetic Resonance Angiography 12/22/15 1445 Signed Impressions: Service Date/Time: Tuesday, December 22, 2015 09:22 - CONCLUSION: Variant origin of the left vertebral artery from the aortic arch. No evidence of carotid stenosis. Glen Zamora MD Head/Brain Mag Res Venography 12/22/15 0000 Signed Impressions: Service Date/Time: Tuesday, December 22, 2015 09:22 - CONCLUSION: Normal MRV. Jonel Jones Jr., MD Objective Remarks GENERAL: WDWN male, in no apparent distress. Nonverbal. Awake. Lying in hospital bed. Does not track. Does not follow commands. SKIN: Warm and dry. No rash noted. HEENT: Normocephalic. Eyes non-icteric without injection or drainage. Nose without bleeding. NECK: Trachea midline. T-tube in place, site clean, dry, intact. CARDIOVASCULAR: Regular rate and rhythm without murmurs, gallops, or rubs. RESPIRATORY: Coarse BS. No accessory muscle use. Tpiece in place with scant amount of secretions. GASTROINTESTINAL: Abdomen soft, non-tender, nondistended. BS active x [address] quads[address] tube in place, some purulence noted around tube site. Also area of erythema with scant amount of purulent drainage just below GJ tube. : Lopez catheter in place with clear yellow urine in the bag. MUSCULOSKELETAL: Extremities without clubbing, cyanosis, Bilateral feet +1 edema. Upper extremities slightly edematous. NEUROLOGICAL: Awake. Patient not following commands. Not tracking. Nonverbal. Procedures 07/22/2016 Wide excision of sacral skin wound, biopsy of the cavity lining and debridement. PEG removal and Gj tube placement 07/29/16 VAC changes- M-W-F 10/23/16, 11/18, 12/31- GJ tube replacement 01/02/16 PEG placement 01/02/16 tracheostomy 02/25/17 PEG replacement 03/03/17 Cystoscopy and palliative transurethral resection of bladder tumor greater than 5cm originating from the right bladder wall Medications and IVs Current Medications Medications (Trade) Dose Ordered Sig/Junior Route Start Time Stop Time Status Last Admin (NS Flush) 2 ml UNSCH PRN IVF 12/21/15 06:00 09/28/16 21:18 (Keppra Liq) 500 mg Q12HR TUBE 12/27/15 21:00 03/19/17 07:54 (Tylenol 650 Mg/ 20 ml Liq) 650 mg Q6H PRN TUBE 12/30/15 15:15 03/16/17 14:22 (Mycostatin Powder) 1 applic Q12HR TOPICAL 01/08/16 21:00 03/19/17 07:51 (Pill Splitter) 1 ea UNSCH PRN OTHER 01/14/16 08:30 (Acetic Acid 0.25% Irr Btl) 10 ml Q8HR IRRIGATION 02/05/16 16:00 03/19/17 05:00 (Paxil Liq) 20 mg DAILY@1900 PEG 03/12/16 19:00 Future hold 03/18/17 18:33 (Zofran Inj) 4 mg Q6HR PRN IV PUSH 04/14/16 19:45 03/16/17 16:00 (Xopenex Neb) 0.63 mg Q4HR NEB PRN NEB 05/05/16 12:00 03/06/17 10:45 (Aspirin) 325 mg DAILY TUBE 05/27/16 11:40 Future hold 03/19/17 07:49 (Heparin Inj) 5,000 units Q8HR SQ 06/11/16 14:00 Future hold 03/19/17 05:00 (Baciguent Oint) 1 applic BID TOP 07/20/16 10:00 03/19/17 07:50 ([place]) 1 spray BID NASAL 08/01/16 21:00 03/19/17 07:50 (Tears Naturale Opth Soln) 1 drop BID EACH EYE 09/05/16 21:00 03/19/17 07:50 (Morphine Inj) 1 mg Q24H PRN IV PUSH 09/17/16 14:30 10/22/16 02:00 (Dulcolax Supp) 10 mg DAILY PRN RECTAL 09/26/16 15:30 12/08/16 09:17 (Tylenol - Codeine 120-12 Liq) 5 ml Q4H PRN G-TUBE 12/27/16 15:30 03/13/17 13:51 (Imodium Liq) 2 mg Q6H PRN PEG 12/27/16 15:30 03/18/17 20:25 (Milk Of Magnesia Liq) 30 ml DAILY PRN PEG 12/27/16 15:30 02/11/17 08:46 (Milk Of Magnesia Liq) 30 ml DAILY PEG 12/28/16 09:00 Future Hold 01/19/17 08:44 (Senna Liq) 8.8 mg DAILY@1600 PEG 12/27/16 16:00 03/18/17 14:27 (Lactulose Liq) 30 ml DAILY PRN PEG 12/27/16 15:30 (Cardizem) 30 mg QID PEG 01/09/17 18:00 03/18/17 09:11 (D50w (Vial) Inj) 50 ml UNSCH PRN IV 01/09/17 16:00 (Glucagon Inj) 1 mg UNSCH PRN OTHER 01/09/17 16:00 (Prevacid Odt) 30 mg BID NG 7/9/17 21:00 03/19/17 07:49 (Ashish Powder) 1 pack BID G-TUBE 02/10/17 21:00 03/18/17 20:04 (Ferrous Sulfate Liq) 300 mg DAILY PO 02/14/17 09:00 03/19/17 07:49 (Vitamin C) 1,000 mg DAILY PO 02/14/17 09:00 03/19/17 07:48 (Bacitracin Oint Packet) 0.9 gm DAILY TOPICAL 02/25/17 09:00 03/18/17 09:00 (Levaquin) 500 mg DAILY PO 03/15/17 16:00 03/19/17 07:49 (Levsin) 0.25 mg Q8HR G-TUBE 03/18/17 22:00 03/19/17 04:59 Date of Insertion: Mar 03, 2017 A/P Problem List: (1) CVA (cerebral vascular accident) ICD Code: I63.9 - Cerebral infarction, unspecified Status: Acute (2) A-fib ICD Code: I48.91 - Unspecified atrial fibrillation Status: Chronic (3) DM (diabetes mellitus) ICD Code: E11.9 - Type 2 diabetes mellitus without complications Status: Chronic Assessment and Plan 60 year-old male with past medical history of paroxysmal A. fib, hypertension, stage III non-Hodgkin's lymphoma status post chemotherapy who came into the hospital with altered mental status. PEG tube site cellulitis - ID following, appreciate their assistance - wound culture positive for Kleb pneumo sensitive to Levaquin - continue on po Levaquin x 5 days per ID - wound care following, appreciate their assistance. Per their recommendations, please cleanse around PEG tube site with normal saline and apply drain sponge around tube secure tube and drain sponge with medifix tape change as needed. Please use skin prep before applying adhesives to skin. 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 - CT of the abdomen showed bladder mass right posteriorly with apparent extravesical extension and clot formation. - Urology spoke with family member, daughter, states that he's not recommending biopsy of the bladder mass. However daughter insisted on biopsy. Patient s/p cystoscopy and palliative transurethral resection of bladder tumor greater than 5 cm originating from right bladder wall performed by Dr. Sewell . 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 - Oncology following - appreciate their assistance. Family requesting aggressive therapy. CT chest negative for malignancy. MRI completed. Patient is not a candidate for chemotherapy. Family has decided on palliative XRT treatment and would like it to start MIGEL. Consult placed for radiation oncology. - Palliative care following, appreciate their assistance. - Continue to flush lopez catheter PRN. 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 Intermittently tracks with eyes. - Continue Keppra 500mg BID for seizure prophylaxis. Keppra level 17.8. - PT/OT signed off as patient is unable to participate. - On Paxil 20 by mouth daily for depression. - On acetaminophen with codeine for pain scale of 2-10. - Morphine 1 mg every 24 hours when necessary for dressing change Chronic respiratory failure secondary to CVA - Status post tracheostomy. Continue pulmonary toilet and bronchodilators as needed. Continue trach care, suctioning. Increased secretions improved with scheduled Levsin. Decreased dosing of scheduled Levsin to q8h. - Trach changed to size #6 XLT on 01/09 - Duo nebs every 4 hours while awake - Pulmonary currently following, appreciate assistance. Atrial fibrillation, controlled Hypertension Dyslipidemia - Continue rate control with Cardizem and metoprolol. - [id number] score 4 - Echocardiogram in November 2015 shows preserved ejection fraction. - Coumadin discontinued secondary to bleeding from sacral wound. No active bleeding noted. Resume Coumadin 5mg daily. Pharmacy to dose. Monitor INR. - Continue aspirin History of non-Hodgkin's lymphoma - Status post brain biopsy on December 13 by neurosurgery. Pathology consistent with acute infarct without evidence of lymphoma. Diabetes mellitus Type 2 - Hemoglobin A1c is 5.5. - Fingersticks have been stable and were DC'd 02/01/17 Decubitus ulcer stage IV - Status post wide excision of sacral skin and biopsy of the cavity lining with debridement on 07/22/16. - Continue wound care, twice-daily dressing changes. Wound care recommendations last updated 12/12/16. Continue pressure relief measures including turning and positioning. - Patient's family has declined a diverting colostomy. Previous Wound culture growing Klebsiella and Enterococcus Faecalis. Previously on Augmentin. - Wound care last saw patient on 02/25/17, no new recommendations continue packing with Betadine moistened rolled Janis and covered with ABD pad and paper tape to secure. - Continue to monitor. Continue pressure-relief. - Morphine 1 mg every 24 hours when necessary for dressing change Protein calorie malnutrition Gastroesophageal reflux disease Gastric ulcer, reflux esophagitis Diarrhea, negative for C. difficile. Improved - EGD on 07/30/16 showed gastric ulcers. Continue on Prevacid 30 mg Q12. - G/J tube clogged, IR consulted to evaluate. Replaced on 02/25/17 - TF held 03/16 due to emesis. No recurrence. TF resumed yesterday - now at 25ml per hour. Discussed with RN who will increase to 30 today. [employer] Specialist consulted to assist with rate/needs. Per their recommendations, Rec increasing TF'ing 10ml/hr Q 6hr, as tolerated, to goal rate 55ml/hr. Rec to discontinue the Ashish r/t pt has received Ashish for Rec dosing of 4-weeks to promote new tissue growth. - Continue bowel regimen with hold parameters, Lactinex and Imodium. (+)BM overnight x 1. Klebsiella/Pseudomonas/staph aureus HCAP PSAE UTI - S/p Cefepime. Monitor for signs of infections. - strep pneumonia and Legionella urinary Ag is negative - C-diff PCR negative on 01/13 - 01/09 BC : Staph Epi, Urine cx: Pseudomonas, Sputum cx: Pseudomonas, kleb, Staph. - Patient was pancultured on 01/19 (Blood, sputum, urine) NGTD in urine and blood. Sputum + for pseudomonas. Likely colonization. Hyponatremia - mild - today's labs pending DVT prophylaxis: SCDs. Heparin 5,000 units sq Q8hr Discussed with Stefani URIARTE and Dr. Lala Problem Qualifiers (1) CVA (cerebral vascular accident): (2) DM (diabetes mellitus): Jaz Peraza Mar 19, 2017 08:46
[2017-03-19] MEDS: BACITRACIN OINT 0.9 GM PKT TOPICAL SCH (09:00)
[2017-03-19] MEDS: JUVEN POWDER 1 PACK G-TUBE SCH (09:00)
[2017-03-19] MEDS: SENNOSIDES SYRUP 8.8 MG/5 ML CUP PEG SCH (14:46)
[2017-03-19 15:57] LABS: AUTOMATED NEUTROPHIL # 3.8 TH/MM3 (1.8-7.7); BASOPHIL % 0.9 % (0.0-2.0); EOSINOPHIL # 0.1 TH/MM3 (0-0.4); EOSINOPHIL % 2.6 % (0.0-4.0); HEMATOCRIT 25.3 % (39.0-51.0); HEMO FLAGS DIFF FINAL; LYMPH % 14.5 % (9.0-44.0); LYMPHOCYTE # 0.7 TH/MM3 (1.0-4.8); MEAN CELL VOLUME 70.7 FL (80.0-100.0); MEAN CORPUSCULAR HEMOGLOBIN 21.6 PG (27.0-34.0); MEAN CORPUSCULAR HGB CONC 30.5 % (32.0-36.0); MONO % 5.5 % (0.0-8.0); NEUT % 76.5 % (16.0-70.0); PLATELET COUNT 190 TH/MM3 (150-450); RED BLOOD COUNT 3.58 MIL/MM3 (4.50-5.90); RED CELL DISTRIBUTION WIDTH 20.2 % (11.6-17.2)
--- NOTE | 2017-03-19 16:12 | HHI.HCPN ---
Reason for visit a. To assist with evaluation and management of symptoms including: dyspnea, encephalopathy, depression b. To assist medical decision maker(s) with: better understanding of current medical conditions; weighing benefits/burdens of medical treatment options; making medical treatment decisions. Subjective/Interval History Palliative care RECONSULTED 03/10/17 on this pt, pt well known to Palliative Care. Pt has remained stable in med surg unit. Briefly in ICU last month for dyspnea/ resp distress, on mech vent for several days. Has remained stable on 29% fio2 to trach since then. Palliative care reconsulted at this time due to no findings of 5 x 3.5 cm bladder mass. Status post cystoscopy, biopsy. Pathology positive small cell carcinoma. Oncology has evaluated, reports would be difficult to provide chemotherapy to this patient due to multiple chronic medical issues, and chronically debilitated state. Oncology Recommends further follow-up/consultation with Dr. Whyte patient known oncologist from prior lymphoma (11/2015), as well as CT chest, and palliative care consult to clarify goals of treatment. * Patient has remained stable. S/p CT chest per oncology r/o metastatic disease , CT chest negative. S/p radiation oncology evaluation / Dr Lincoln notes that a brief course of palliative radiation could be considered, but would pose risk of additional pelvic complications, and would still expect disease process to continue. notes discussion w pt daughter, recommends hospice, though leaves the decision to the children. Palliative received call from nursing yesterday afternoon family with possible questions. Patient seen today to follow-up. Discussed with primary nurse. She informs that yesterday patient family with concerns regarding frequency of dressing changes, when radiation treatment would begin etc. Patient has remained stable. Pulse oximetry monitoring was resumed per family's request. Patient went for radiation simulation today, no progress note Re: available at time of my exam. Patient seen in room, mother at bedside. She endorses they continue to pray for him to get better. Patient with eyes open, tracks examiner. When I ask him about pain, his mother repeats the question -at which time the patient seems to move eyes from side to side maybe meaning no. His mother indicates this means he has no pain. Chewing type motion noted with mouth. Breathing comfortably. No movement to command or exam. Following exam call to ex Leanne--review with her current condition, assessments, treatments in place, status post radiation simulation today. She expresses that yesterday nursing called because family with concerns regarding dressing changes it appeared that maybe the dressings were being done daily, family was concerned regarding pulse oximetry, and they wanted radiation to begin as soon as possible, Leanne indicates that everything has been settled and addressed and they have no additional concerns. Review that radiation is not curative. She informs that radiation oncologists told her patient would go for 10 total treatments she asks if it will be more than once a day. Explore that generally radiation is once per day, though I am not certain of his exact schedule yet. She has questions regarding his pain medication regimen, review with her that he has available morphine 1 mg every 24 hours as well as Tylenol with codeine --she requests that patient be premedicated with Tylenol with codeine before dressing changes as well as before transporting to radiation, she does not think patient pain would be requiring morphine at this point. All questions answered to the best of my ability, she is appreciative of the update on phone call. She has palliative contact number as does the rest of the family. --Discuss all with primary nurse. Of note per [place] Statutes, medical proxy decision making would fall to the majority of adult children, as Mr. Flores is not legally . His ex Leanne and children ALL participate in decision making, with dtr Leanne and ex Leanne serving as primary points of contact. History brought forward from initial consult by Rita MOCTEZUMA on 01/10/16: This 59-year-old patient was admitted on 12/21/15 via the ED for facial drooping. ED physician notes that patient and patients are poor historians, EMS reported the could not provide good timelines to them. Patient also reported headache, difficulty ambulating. He had known history of recent findings of mass in the brain. During ED course had deterioration of clinical condition and able to protect his airway, unable to follow commands patient was intubated and CT brain obtained. He was admitted for further evaluation and management to the ICU. Nurse Specialist was consulted and following patient. Pathology on recent brain biopsy (12/13) still pending. CLINICAL/HOSPITAL COURSE: * CT brain= no focal or acute intracranial hemorrhage. New area decreased density in left occipital lobe suggestive of recent nonhemorrhagic infarct, decreased density in previously noted right occipital lobe has increased in size * Brain MRI = new area of restricted diffusion within left occipital lobe suggesting acute infarct. Interval enlargement of the area of restricted diffusion within right occipital lobe suggesting probable extension of right occipital and started on. Underlying enhancement of right occipital lobe is slightly worse than the previous exam and nonspecific. Biopsy has been performed and results are pending. Tiny focal area of restricted diffusion within right cerebellar hemisphere consistent with probable acute/subacute lacunar infarct. Signal abnormality in the SWI sequence within the right occipital lobe suggesting some hemorrhage in biopsy bed. No midline shift or extra-axial fluid collections. * CXR= no acute cardiopulmonary disease * -Neurology consulted, ordered MRA to look for vertebrobasilar stenosis, echo done last admission notes normal EF with normal valves and normal left atrial size. EEG also ordered. MR venogram ordered. EEG= abnormal study consistent with her encephalopathy. MRV indicated basilar occlusion; neurology notes discussion with family regarding chemical code only, also notes discussion regarding risks associated with the anticoagulates, was discussed with radiologist/INR recommended not helpful to extract basilar clot as this could result in patient's . It was felt the colin was infarcted. Further neurology notes "he could be locked in", is acting as if colin is infarcted. * Oncology known to patient also consulted for non-Hodgkin's lymphoma: Dr Whyte documents that there was no evidence of residual or recurrent disease on CT scans of chest, abdomen, pelvis done in October and November of this year. Pathology was still pending, had been sent to [facility] for second opinion. No acute oncology interventions recommended at that time, will follow. * 12/23 - 12/25 febrile. CPAP trials. Remains on vent off of sedation. Withdrawing to pain. Repeat brain MRI= evolving brainstem stroke. Neurology notes extensive discussion with family, notes discussion the patient is locked in but fully aware, family would like to see help patient does over the next 3 months. 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 Biopsy brain lesion appears consistent with acute infarct no lymphoma. Family desires ongoing aggressive measures, will proceed with tracheostomy. Sputum culture positive sensitive Klebsiella. * 01/01 tracheostomy, PEG tube placement * 01/04 trach collar trials, alternating with T piece. Low-grade fever 100.5. CXR = mild bibasilar atelectasis. Neuro: Spontaneously opening eyes, looking up / down, directionally to commands. * 01/07 still "locked in " , transferred off ICU to regular floor. * 01/08 pulmonology consulted-not CXR clear no evidence of pulmonary infection. He may have some underlying COPD recommends continued aerosol treatments. Further notes long discussion with family at bedside regarding tracheostomy, long-term use of trach until patient able to protect his airway, no further recommendations. Palliative care consulted to assist with clarification of goals of treatment. Advance Directives Living Will: Never completed Health Care Surrogate: Never completed Objective Vital Signs Date Time Temp Pulse Resp B/P (MAP) Pulse Ox O2 Delivery O2 Flow Rate FiO2 03/19/17 14:43 99 T-piece 5.00 28 03/19/17 13:30 96.6 106 18 115/76 (89) 98 03/19/17 08:00 98.2 104 16 111/68 (82) 100 03/19/17 00:45 98.2 109 20 108/67 (81) 98 03/18/17 21:53 97 T-piece 6.00 28 03/18/17 20:00 97.4 106 20 111/67 (82) 98 03/18/17 20:00 Trach Collar 6.00 03/18/17 16:00 98.7 108 17 100/72 (81) 98 Intake & Output 03/19/17 03/19/17 07:00 19:00 Intake Total 459 ml Output Total 650 ml Balance -191 ml Tube Feeding 359 ml Tube Irrigant 100 ml Output Urine Total 650 ml # Bowel Movements 2 Physical Exam CONSTITUTIONAL/GENERAL: This is a chronically ill, frail appearing patient, in no apparent distress TUBES/LINES/DRAINS: Arevalo catheter, PEG tube, tracheostomy, reported ongoing wound to sacrum though I did not visualize. Skin temperature appropriate. Not diaphoretic. CARDIOVASCULAR: Regular rate and rhythm without murmurs.Peripheral pulses symmetric. Trace peripheral edema to upper extremities. RESPIRATORY/CHEST: Tracheostomy midline, no symptoms of problems around site. Symmetric, unlabored respirations. T piece, 28% FiO2. Lung sounds clear. Breath sounds equal bilaterally. GASTROINTESTINAL: Abdomen soft, no apparent tenderness, nondistended. No palpable masses. Bowel sounds normoactive. tube feed infusing via PEG. Very slight erythema around PEG tube insertion. MUSCULOSKELETAL: Extremities without clubbing, cyanosis. Trace edema upper extremities, lower extremities. No joint effusion noted. No mottling or clubbing.+ Muscle atrophy to all 4 extremities. NEUROLOGICAL: Eyes open, tracks examiner left and right. May move eyes left-to- right in a no response to question. Does not follow commands,no movement, no following commands. PSYCHIATRIC: Difficult to fully assess due to clinical condition. no evident anxiety . . Diagnostic Tests Laboratory Laboratory Tests Test 03/16/17 16:14 03/17/17 14:38 03/19/17 15:28 White Blood Count 7.3 TH/MM3 (4.0-11.0) 7.0 TH/MM3 (4.0-11.0) 5.0 TH/MM3 (4.0-11.0) Red Blood Count 3.75 MIL/MM3 (4.50-5.90) 3.51 MIL/MM3 (4.50-5.90) 3.58 MIL/MM3 (4.50-5.90) Hemoglobin 8.1 GM/DL (13.0-17.0) 7.6 GM/DL (13.0-17.0) 7.7 GM/DL (13.0-17.0) Hematocrit 26.8 % (39.0-51.0) 25.1 % (39.0-51.0) 25.3 % (39.0-51.0) Mean Corpuscular Volume 71.5 FL (80.0-100.0) 71.7 FL (80.0-100.0) 70.7 FL (80.0-100.0) Mean Corpuscular Hemoglobin 21.7 PG (27.0-34.0) 21.8 PG (27.0-34.0) 21.6 PG (27.0-34.0) Mean Corpuscular Hemoglobin Concent 30.4 % (32.0-36.0) 30.4 % (32.0-36.0) 30.5 % (32.0-36.0) Red Cell Distribution Width 20.4 % (11.6-17.2) 20.3 % (11.6-17.2) 20.2 % (11.6-17.2) Platelet Count 252 TH/MM3 (150-450) 220 TH/MM3 (150-450) 190 TH/MM3 (150-450) Mean Platelet Volume 8.2 FL (7.0-11.0) 8.1 FL (7.0-11.0) 8.0 FL (7.0-11.0) Neutrophils (%) (Auto) 78.2 % (16.0-70.0) 76.5 % (16.0-70.0) Lymphocytes (%) (Auto) 13.4 % (9.0-44.0) 14.5 % (9.0-44.0) Monocytes (%) (Auto) 6.1 % (0.0-8.0) 5.5 % (0.0-8.0) Eosinophils (%) (Auto) 1.3 % (0.0-4.0) 2.6 % (0.0-4.0) Basophils (%) (Auto) 1.0 % (0.0-2.0) 0.9 % (0.0-2.0) Neutrophils # (Auto) 5.7 TH/MM3 (1.8-7.7) 3.8 TH/MM3 (1.8-7.7) Lymphocytes # (Auto) 1.0 TH/MM3 (1.0-4.8) 0.7 TH/MM3 (1.0-4.8) Monocytes # (Auto) 0.4 TH/MM3 (0-0.9) 0.3 TH/MM3 (0-0.9) Eosinophils # (Auto) 0.1 TH/MM3 (0-0.4) 0.1 TH/MM3 (0-0.4) Basophils # (Auto) 0.1 TH/MM3 (0-0.2) 0.0 TH/MM3 (0-0.2) CBC Comment DIFF FINAL DIFF FINAL Differential Comment Blood Urea Nitrogen 24 MG/DL (7-18) 24 MG/DL (7-18) Creatinine 1.30 MG/DL (0.60-1.30) 1.21 MG/DL (0.60-1.30) Random Glucose 129 MG/DL (74-106) 116 MG/DL (74-106) Total Protein 9.2 GM/DL (6.4-8.2) Albumin 2.4 GM/DL (3.4-5.0) Calcium Level 9.0 MG/DL (8.5-10.1) 9.1 MG/DL (8.5-10.1) Alkaline Phosphatase 84 U/L (45-117) Aspartate Amino Transf (AST/SGOT) 36 U/L (15-37) Alanine Aminotransferase (ALT/SGPT) 13 U/L (12-78) Total Bilirubin 0.3 MG/DL (0.2-1.0) Sodium Level 135 MEQ/L (136-145) 133 MEQ/L (136-145) Potassium Level 3.9 MEQ/L (3.5-5.1) 4.2 MEQ/L (3.5-5.1) Chloride Level 98 MEQ/L (98-107) 98 MEQ/L (98-107) Carbon Dioxide Level 24.0 MEQ/L (21.0-32.0) 24.2 MEQ/L (21.0-32.0) Anion Gap 13 MEQ/L (5-15) 11 MEQ/L (5-15) Estimat Glomerular Filtration Rate 56 ML/MIN (>89) 61 ML/MIN (>89) Result Diagram: 03/19/17 1528 03/17/17 1438 Microbiology Microbiology Date/Time Source Procedure Growth Status 03/16/17 16:21 Blood Peripheral Aerobic Blood Culture - Preliminary NO GROWTH IN 3 DAYS Resulted 03/16/17 16:21 Blood Peripheral Anaerobic Blood Culture - Preliminary NO GROWTH IN 3 DAYS Resulted 03/16/17 16:14 Blood Peripheral Aerobic Blood Culture - Preliminary NO GROWTH IN 3 DAYS Resulted 03/16/17 16:14 Blood Peripheral Anaerobic Blood Culture - Preliminary NO GROWTH IN 3 DAYS Resulted Procedures * 01/01 tracheostomy, PEG tube placement . 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; EEG indicates encephalopathy, neuro following patient felt to be in a "locked-in "state (2) Non-Hodgkin lymphoma Comment: -In remission status post chemotherapy completed May 2015 (3) Acute respiratory failure Comment: Pulmonology following, medical management (4) A-fib (5) Status post stereotactic brain biopsy (6) Brain lesion Comment: Status post biopsy November 2015; pathology consistent with acute infarct without evidence of lymphoma (7) DM (diabetes mellitus) Symptom Scale: (1) Dysphagia (2) Dyspnea (3) Encephalopathy (4) Malnutrition (5) Depression Pertinent Non-Medical Issues * Psychosocial:Mr. Flores is originally from [place]. He moved to the around 35 years ago, first to [place] and later to [place]. He is not legally but remains with his ex-, Leanne. They have been together for 31+ years and have three children together: Leanne, Gerald, and Ginny. Gerald is currently in [facility] for work. Mr. Flores has 2 brothers and 7 sisters. His father is of old age. His mother is alive and was living with the patient. Greatly enjoys his family. Retired. 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 * Spiritual: * Legal:Patient due to clinical condition is currently unable to participate in medical decision making. Not clear he will regain this ability. Family does not believe he has completed advance directives. per [place] Statutes, medical proxy decision making would fall to the majority of adult children, as Mr. Flores is not legally . His ex Leanne and children ALL participate in decision making, with dtr Leanne and ex Leanne serving as primary points of contact. * Ethical issues impacting care: Important Contacts Leanne, daughter: [phone] Ginny, daughter: [phone] Gerald Flores, son: currently in [facility] for work but has communication with his siblings. Leanne, ex-: [phone] . Prognosis This patient has had 20 day hospital course thus far, admitted on 62 for a large brainstem infarct, bilateral occipital infarcts. He has subsequently had ongoing encephalopathy and severe communication limitations, neurology feels he is in a "locked-in "state. He has suffered from respiratory failure likely secondary to significant CVA. Appears he should be able to survive this acute hospitalization, however not clear when or if he will regain ability to communicate, based on current assessments patient will require long-term care placement. He will remain high risk for potential competition/setbacks due to immobile status including infections, DVT etc. . Code Status: Alternative Code Plan * Legal decision maker - Of note per [place] Statutes, medical proxy decision making would fall to the majority of adult children, as Mr. Flores is not legally . His ex Leanne and children ALL participate in decision making, with dtr Leanne and ex Leanne serving as primary points of contact. * * GOALS: 03/17/17 met with ex- Leanne at length . See subjective for additional detail. In summary:Patient ex- verbalizes that she is now beginning to think that they could be reflecting potential suffering by proceeding with palliative radiation. She shares that the patient has moments of what they feel is pretty clear interaction with the family and that he has wanted to fight and proceed with treatments during his prolonged hospital course up until this point. She feels the patient understands overall poor prognosis related to new cancer findings, and she is not certain he would wish to proceed with radiation. For the most part his mother has been the one most reluctant to not pursue further aggressive measures and she and the children have begun to discuss if they should proceed with radiation however they do not think patient mother will accept or allow this. She is appropriately tearful at times, and indicates that she understands the gravity of current cancer diagnoses and is leaning towards comfort measures however is also struggling to "withhold "nutrition etc. she would not want him to feel hungry. Much exploration with her of end-of-life process. Questions answered to the best my ability. I offered ongoing support and follow-up to her and the rest of the family. Review with her resuscitation status, and that they as a family could elect to change to full DNR to allow the past comfortably should he again experienced respiratory compromiseshe indicates they will talk as a family and she will notify me or they will notify me if they elect DNR status for him. 03/19/17- spoke with ex- Leanne. She endorses for now goals remain aggressive they wish to continue to pursue radiation and other available treatments. She will continue to assess patient daily to determine if he wishes to continue things and she feels he will indicate to her if or when he no longer wishes to pursue treatment and possibly wants comfort measures only. * CODE STATUSalt code-- vent only * Symptoms: == Dysphagia--Status post significant CVA, has had PEG tube placed; no improvement per ST following --prev. trial with a passy mikey valve, patient with no response or attempt to verbalize--intermittently w copoius secretions. ST signed off == Dyspnea --Respiratory failure secondary to CVA, status post tracheostomy, pulmonary following; currently no apparent distress/ O2 sats / O2 requirements stable--O2 sat stable; in ICU briefly last month, required vent, now stable on 28% FiO2 to T piece. 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 == Malnutrition--Status post PEG tube placement. currently tolerating TF; having bowel movements,- s/p GJ tube . Multiple episodes of GJ tube clogs, currently functioning well. 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 Has morphine 1 mg prn for pain, dressing changes etc. also has Tylenol with Codeine available. Last dose morphine 10/22, last dose Tylenol with codeine . Today patient expresses some concern about pre-medicating before dressing changes and transfer for radiation, discussed with nursing utilizing Tylenol with codeine to premedicate == Nausea/emesis--pt with 2 episodes of coughing and emesis yesterday. Treated with Zofran with some relief. No further episodes reported today. * Palliative care will continue to follow during hospital course as condition evolves, to assist patient/decision-maker with understanding of medical conditions, weighing benefits/burdens of treatment options, for clarification of goals of treatment. Additionally will assist with any symptoms of palliative concern Time Spent Total Floor Time (mins): 25 Attestation To help prompt me to consider important information that might be impacting today's encounter and assessment, information from prior notes written by myself or my colleagues may have been "brought forward" into today's note. My signature on this note, however, is an attestation that I personally performed the exam, history, and/or decision-making noted today, and, unless otherwise indicated, the interactions with patient, family, and staff as well as the review of records all occurred today. I also attest that the listed assessment and stated plan reflect my best clinical judgment today based on the combination of historical information, prior notes, and today's exam/ interactions. When time spent is documented, it refers only to time spent today by the signer, or if indicated, combined time spent today by collaborating physician/nurse practitioner. Tiara Colin Mar 19, 2017 16:12
[2017-03-19 16:26] LABS: BICARBONATE 25.7 MEQ/L (21.0-32.0); POTASSIUM 3.8 MEQ/L (3.5-5.1)
--- NOTE | 2017-03-19 16:37 | HHI.PR ---
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 Objective Vital Signs Date Time Temp Pulse Resp B/P (MAP) Pulse Ox O2 Delivery O2 Flow Rate FiO2 03/19/17 14:43 99 T-piece 5.00 28 03/19/17 13:30 96.6 106 18 115/76 (89) 98 03/19/17 08:00 98.2 104 16 111/68 (82) 100 03/19/17 00:45 98.2 109 20 108/67 (81) 98 03/18/17 21:53 97 T-piece 6.00 28 03/18/17 20:00 97.4 106 20 111/67 (82) 98 03/18/17 20:00 Trach Collar 6.00 I/O 03/18/17 03/18/17 03/18/17 03/19/17 03/19/17 03/19/17 07:00 15:00 23:00 07:00 15:00 23:00 Intake Total 100 ml 0 ml 459 ml Output Total 450 ml 900 ml 650 ml Balance -350 ml -900 ml -191 ml Intake Oral 0 ml Tube Feeding 359 ml Tube Irrigant 100 ml Other 100 ml Output Urine Total 450 ml 900 ml 650 ml # Bowel Movements 2 2 Result Diagram: 03/19/17 1528 03/19/17 1528 Procedures 01/02/16 PEG placement 01/02/16 tracheostomy 07/22/2016 Wide excision of sacral skin wound, biopsy of the cavity lining and debridement. PEG tube replacement 07/29/16 Objective Remarks GENERAL: SKIN: Warm and dry. HEAD: Atraumatic. Normocephalic. EYES: Pupils equal and round. No scleral icterus. No injection or drainage. ENT: No nasal bleeding or discharge. Mucous membranes pink and moist. NECK: Trachea midline. No JVD. CARDIOVASCULAR: Regular rate and rhythm. RESPIRATORY: No accessory muscle use. Clear to auscultation. Breath sounds equal bilaterally. GASTROINTESTINAL: Abdomen soft, non-tender, nondistended. Hepatic and splenic margins not palpable. MUSCULOSKELETAL: Extremities without clubbing, cyanosis, or edema. No obvious deformities. NEUROLOGICAL: Awake and alert. No obvious cranial nerve deficits. Motor grossly within normal limits. Five out of 5 muscle strength in the arms and legs. Normal speech. PSYCHIATRIC: Appropriate mood and affect; insight and judgment normal. Laboratory Tests Test 01/05/17 01/06/17 08:35 08:41 Red Blood Count 4.43 MIL/MM3 (4.50-5.90) Hemoglobin 9.9 GM/DL (13.0-17.0) Hematocrit 32.0 % (39.0-51.0) Mean Corpuscular Volume 72.1 FL (80.0-100.0) Mean Corpuscular Hemoglobin 22.3 PG (27.0-34.0) Mean Corpuscular Hemoglobin 30.9 % Concent (32.0-36.0) Red Cell Distribution Width 19.9 % (11.6-17.2) Sodium Level 134 MEQ/L 133 MEQ/L (136-145) (136-145) Random Glucose 136 MG/DL 132 MG/DL (74-106) (74-106) Creatinine 0.59 MG/DL (0.60-1.30) GENERAL: SKIN: Warm and dry. HEAD: Atraumatic. Normocephalic. EYES: Pupils equal and round. No scleral icterus. No injection or drainage. ENT: No nasal bleeding or discharge. Mucous membranes pink and moist. NECK: Trachea midline. No JVD. TRACH. [place] CARDIOVASCULAR: Regular rate and rhythm. RESPIRATORY: No accessory muscle use. Clear to auscultation. Breath sounds equal bilaterally. GASTROINTESTINAL: Abdomen soft, non-tender, nondistended. Hepatic and splenic margins not palpable. MUSCULOSKELETAL: Extremities without clubbing, cyanosis, or edema. No obvious deformities. NEUROLOGICAL: Awake and alert. No obvious cranial nerve deficits. Motor grossly within normal limits. Five out of 5 muscle strength in the arms and legs. Normal speech. PSYCHIATRIC: Appropriate mood and affect; insight and judgment normal. 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 TOILET Brandon Taylor MD Mar 19, 2017 16:37
[2017-03-19] MEDS: PARoxetine HCL SUSP 20 MG/10 ML UDC PEG SCH (18:09)
[2017-03-19] MEDS: WARFARIN SOD 5 MG TAB PO SCH (18:09)
[2017-03-19] MEDS: ACETAMINOPHEN/CODEINE ELIX 120 MG/12 MG/5 ML CUP G-TUBE PRN (18:10)
[2017-03-19 18:37] LABS: INTERNATIONAL NORMALIZED RATIO 1.1 RATIO; PROTHROMBIN TIME - PATIENT 12.3 SEC (9.8-11.6)
[2017-03-20] VITALS (11 sets, daily range): BP systolic 106–121; BP diastolic 65–74; PULSE 100–115; RESP 16–20; TEMP 96.5–99.3; O2SAT 97–100
[2017-03-20] MEDS: ACETIC ACID 0.25% SOLN 1000 ML IRR BTL IRRIGATION SCH ×3 (06:00→22:00)
[2017-03-20 06:02] LABS: INTERNATIONAL NORMALIZED RATIO 1.1 RATIO; PROTHROMBIN TIME - PATIENT 12.6 SEC (9.8-11.6)
[2017-03-20] MEDS: HEPARIN SODIUM - SQ 10,000 UNITS/ML VIAL SQ SCH ×3 (06:05→22:09)
[2017-03-20] MEDS: HYOSCYAMINE 0.125 MG TAB G-TUBE SCH ×3 (06:05→22:02)
[2017-03-20] MEDS: BACITRACIN OINT 0.9 GM PKT TOPICAL SCH (09:00)
[2017-03-20] MEDS: BACITRACIN TOP OINT 15 GM TUBE TOP SCH ×2 (09:00→21:00)
[2017-03-20] MEDS: SODIUM CHLORIDE 0.65% NASAL SPRAY 45 ML BTL NASAL SCH ×2 (09:00→21:00)
[2017-03-20] MEDS: NYSTATIN 100,000 U/GM PWD 15 GM BTL TOPICAL SCH ×2 (09:00→21:00)
[2017-03-20] MEDS: DILTIAZEM HCL 30 MG TAB PEG SCH ×4 (09:00→22:02)
[2017-03-20] MEDS: LANSOPRAZOLE SOLUTAB 30 MG TAB NG SCH ×2 (09:52→22:02)
[2017-03-20] MEDS: LEVOFLOXACIN 500 MG TAB PO SCH (09:52)
[2017-03-20] MEDS: ASPIRIN 325 MG TAB TUBE SCH (09:52)
[2017-03-20] MEDS: ASCORBIC ACID 500 MG TAB PO SCH (09:53)
[2017-03-20] MEDS: levETIRAcetam 500 MG/5 ML UDC TUBE SCH ×2 (09:54→21:00)
[2017-03-20] MEDS: FERROUS SULFATE 300 MG /5ML UDC PO SCH (09:55)
[2017-03-20] MEDS: ARTIFICIAL TEARS OPTH SOLN 15 ML BTL EACH EYE SCH ×2 (09:57→22:11)
--- NOTE | 2017-03-20 10:26 | HHI.PR ---
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 Patient seen and examined today. No family at the bedside today. Patient opens his eyes to voice but does not track. He does not follow commands. Discussed with RN - no acute issues overnight. Objective Vitals Vital Signs Date Time Temp Pulse Resp B/P (MAP) Pulse Ox O2 Delivery O2 Flow Rate FiO2 03/20/17 08:00 97.5 104 16 106/65 (79) 99 03/20/17 00:00 99.3 108 20 109/65 (80) 99 03/19/17 23:36 96.8 110 20 115/54 (74) 99 03/19/17 21:54 T-Piece 5.00 03/19/17 20:35 100 T-piece 6.00 28 03/19/17 16:00 96.8 110 17 104/65 (78) 97 03/19/17 14:43 99 T-piece 5.00 28 03/19/17 13:30 96.6 106 18 115/76 (89) 98 I/O 03/19/17 03/19/17 03/19/17 03/20/17 03/20/17 03/20/17 06:59 14:59 22:59 06:59 14:59 22:59 Intake Total 459 ml 682 ml 336 ml Output Total 650 ml 350 ml 500 ml Balance -191 ml 332 ml -164 ml Intake Oral 0 ml Tube Feeding 359 ml 482 ml 336 ml Tube Irrigant 100 ml Other 200 ml Output Urine Total 650 ml 350 ml 500 ml # Bowel Movements 2 0 Result Diagram: 03/19/17 1528 03/19/17 1528 Imaging Last Impressions Chest X-Ray 03/16/17 0000 Signed Impressions: Service Date/Time: Thursday, March 16, 2017 15:18 - CONCLUSION: 1. Mild perihilar infiltrates. 2. Tracheostomy tube remains in good position 4 cm above the geno Eduardo Valenzuela MD Brain MRI 03/14/17 0000 Signed Impressions: Service Date/Time: Tuesday, March 14, 2017 12:41 - CONCLUSION: The signal abnormality and enhancement within the bilateral occipital lobes and colin have decreased since the prior examinations. No new abnormality is identified. There is no new enhancing area or signs of a recent ischemia. Glen Gordon MD Chest CT 03/10/17 0000 Signed Impressions: Service Date/Time: Friday, March 10, 2017 21:00 - CONCLUSION: 1. Periaortic soft tissue along the proximal descending thoracic aorta not previously seen. This represents either lymphomatous involvement or adjacent consolidated airspace disease. 2. Mild bilateral airspace disease 3. No evidence of significant lymphadenopathy involving the mediastinum, hilar regions, axillas or supraclavicular lore chain. 4. Tracheostomy tube in place. Ernesto Kulkarni MD Abdomen/Pelvis CT 02/27/17 0000 Signed Impressions: Service Date/Time: February 02:24 - CONCLUSION: 1. Abdominal aortic aneurysm. 2. Bladder mass is noted on the right posteriorly with apparent extravesical extension and clot formation. 3. Left renal cyst. 4. Left lower lobe atelectasis. 5. Large sacral decubitus ulcer with bony destruction and sclerosis of the sacrum mid to left lateral portion in the region of S3 and inferiorly which would suggest chronic osteomyelitis in the appropriate clinical setting. Rajan Granados MD Soft Tissue Ultrasound 02/26/17 0000 Signed Impressions: Service Date/Time: Sunday, February 26, 2017 12:52 - CONCLUSION: 1. Just inferior to the G-tube in the left abdomen, there is a superficial 3.8 x 2.9 0.9 cm complex fluid collection in the subcutaneous tissues. 2. Findings are nonspecific. This could represent a small seroma or abscess. Would consider CT scan of the abdomen without contrast for further evaluation to determine if there is intraperitoneal extension. Bobby Gray MD Gastrostomy Tube Placement 02/25/17 0000 Signed Impressions: Service Date/Time: Saturday, February 25, 2017 14:19 - CONCLUSION: Uncomplicated exchange of gastroenteric feeding tube for gastrostomy tube as above. Positioning confirmed. The tube can be used immediately. Glen Zamora MD Tube Change 02/14/17 0000 Signed Impressions: Service Date/Time: Tuesday, February 14, 2017 00:00 - CONCLUSION: Uncomplicated gastrojejunostomy tube exchange as above. Scott Griffin MD Head CT 01/09/17 0000 Signed Impressions: Service Date/Time: December 17:43 - CONCLUSION: 1. No acute hemorrhage or mass effect. 2. 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 3. Atrophy. Gerald Mukherjee MD CT Angiography 01/09/17 0000 Signed Impressions: Service Date/Time: December 17:49 - CONCLUSION: 1. No evidence of pulmonary emboli. 2. Patchy consolidation in both posterior lower lobes right greater than left. This could represent pneumonia. 3. 2 small noncalcified pulmonary nodules which are nonspecific finding. Short-term CT followup is recommended beginning in 6 months with a noncontrast outpatient CT. Gerald Mukherjee MD Tube Check 12/04/16 0000 Signed Impressions: Service Date/Time: Sunday, December 04, 2016 17:58 - CONCLUSION: Uncomplicated tube injection as above. the tube is in good position and functions normally. Moises Ramírez MD Abdomen X-Ray 08/31/16 0000 Signed Impressions: Service Date/Time: Wednesday, August 31, 2016 16:36 - CONCLUSION: 1. No acute findings. Mild constipation. Durga Dotson MD Head Magnetic Resonance Angiography 03/05/16 0000 Signed Impressions: Service Date/Time: Saturday, March 05, 2016 09:26 - CONCLUSION: Persistent high-grade subtotal occlusive stenotic lesions in the distal right vertebral artery and proximal basilar artery with significant improvement in flow and recanalization following initial presentation of thrombosis. Stable interstitial circulation without significant stenosis. Ernesto Kulkarni MD Neck Magnetic Resonance Angiography 12/22/15 1445 Signed Impressions: Service Date/Time: Tuesday, December 22, 2015 09:22 - CONCLUSION: Variant origin of the left vertebral artery from the aortic arch. No evidence of carotid stenosis. Glen Zamora MD Head/Brain Mag Res Venography 12/22/15 0000 Signed Impressions: Service Date/Time: Tuesday, December 22, 2015 09:22 - CONCLUSION: Normal MRV. Jonel Jones Jr., MD Objective Remarks GENERAL: WDWN male, in no apparent distress. Nonverbal. Asleep but easily opens eyes to voice. Does not track. Does not follow commands. SKIN: Warm and dry. No rash noted. HEENT: Normocephalic. Eyes non-icteric without injection or drainage. Nose without bleeding. NECK: Trachea midline. T-tube in place. CARDIOVASCULAR: Regular rate and rhythm without murmurs, gallops, or rubs. RESPIRATORY: Coarse BS. No accessory muscle use. Tpiece in place with scant amount of secretions. GASTROINTESTINAL: Abdomen soft, non-tender, nondistended. BS active x [address] quads[address] tube in place, still with some purulence noted around tube site. Also area of erythema with scant amount of purulent drainage just below GJ tube. : Lopez catheter in place with clear yellow urine in the bag. MUSCULOSKELETAL: Extremities without clubbing, cyanosis, Bilateral feet +1 edema. Upper extremities slightly edematous. NEUROLOGICAL: Awake. Patient not following commands. Not tracking. Nonverbal. Procedures 07/22/2016 Wide excision of sacral skin wound, biopsy of the cavity lining and debridement. PEG removal and Gj tube placement 07/29/16 VAC changes- M-W-F 10/23/16, 11/18, 12/31- GJ tube replacement 01/02/16 PEG placement 01/02/16 tracheostomy 02/25/17 PEG replacement 03/03/17 Cystoscopy and palliative transurethral resection of bladder tumor greater than 5cm originating from the right bladder wall Medications and IVs Current Medications Medications (Trade) Dose Ordered Sig/Junior Route Start Time Stop Time Status Last Admin (NS Flush) 2 ml UNSCH PRN IVF 12/21/15 06:00 09/28/16 21:18 (Keppra Liq) 500 mg Q12HR TUBE 12/27/15 21:00 03/20/17 09:54 (Tylenol 650 Mg/ 20 ml Liq) 650 mg Q6H PRN TUBE 12/30/15 15:15 03/16/17 14:22 (Mycostatin Powder) 1 applic Q12HR TOPICAL 01/08/16 21:00 03/20/17 09:00 (Pill Splitter) 1 ea UNSCH PRN OTHER 01/14/16 08:30 (Acetic Acid 0.25% Irr Btl) 10 ml Q8HR IRRIGATION 02/05/16 16:00 03/20/17 06:00 (Paxil Liq) 20 mg DAILY@1900 PEG 03/12/16 19:00 Future hold 03/19/17 18:09 (Zofran Inj) 4 mg Q6HR PRN IV PUSH 04/14/16 19:45 03/16/17 16:00 (Xopenex Neb) 0.63 mg Q4HR NEB PRN NEB 05/05/16 12:00 03/06/17 10:45 (Aspirin) 325 mg DAILY TUBE 05/27/16 11:40 Future hold 03/20/17 09:52 (Heparin Inj) 5,000 units Q8HR SQ 06/11/16 14:00 Future hold 03/20/17 06:05 (Baciguent Oint) 1 applic BID TOP 07/20/16 10:00 03/20/17 09:00 ([place] Angel [place]) 1 spray BID NASAL 08/01/16 21:00 03/20/17 09:00 (Tears Naturale Opth Soln) 1 drop BID EACH EYE 09/05/16 21:00 03/20/17 09:57 (Morphine Inj) 1 mg Q24H PRN IV PUSH 09/17/16 14:30 10/22/16 02:00 (Dulcolax Supp) 10 mg DAILY PRN RECTAL 09/26/16 15:30 12/08/16 09:17 (Tylenol - Codeine 120-12 Liq) 5 ml Q4H PRN G-TUBE 12/27/16 15:30 03/19/17 18:10 (Imodium Liq) 2 mg Q6H PRN PEG 12/27/16 15:30 03/18/17 20:25 (Milk Of Magnesia Liq) 30 ml DAILY PRN PEG 12/27/16 15:30 02/11/17 08:46 (Milk Of Magnesia Liq) 30 ml DAILY PEG 12/28/16 09:00 Future Hold 01/19/17 08:44 (Senna Liq) 8.8 mg DAILY@1600 PEG 12/27/16 16:00 03/19/17 14:46 (Lactulose Liq) 30 ml DAILY PRN PEG 12/27/16 15:30 (Cardizem) 30 mg QID PEG 01/09/17 18:00 03/19/17 22:30 (D50w (Vial) Inj) 50 ml UNSCH PRN IV 01/09/17 16:00 (Glucagon Inj) 1 mg UNSCH PRN OTHER 01/09/17 16:00 (Prevacid Odt) 30 mg BID NG 01/26/17 21:00 03/20/17 09:52 (Ferrous Sulfate Liq) 300 mg DAILY PO 02/14/17 09:00 03/20/17 09:55 (Vitamin C) 1,000 mg DAILY PO 02/14/17 09:00 03/20/17 09:53 (Bacitracin Oint Packet) 0.9 gm DAILY TOPICAL 02/25/17 09:00 03/20/17 09:00 (Levaquin) 500 mg DAILY PO 03/15/17 16:00 03/20/17 09:52 (Levsin) 0.25 mg Q8HR G-TUBE 03/18/17 22:00 03/20/17 06:05 (Coumadin) 5 mg DAILY@1600 PO 03/19/17 16:30 03/19/17 18:09 Pharmacy Profile Note 0 ml @ 0 mls/hr UNSCH OTHER 03/19/17 15:30 Date of Insertion: Mar 03, 2017 A/P Problem List: (1) CVA (cerebral vascular accident) ICD Code: I63.9 - Cerebral infarction, unspecified Status: Acute (2) A-fib ICD Code: I48.91 - Unspecified atrial fibrillation Status: Chronic (3) DM (diabetes mellitus) ICD Code: E11.9 - Type 2 diabetes mellitus without complications Status: Chronic Assessment and Plan 60 year-old male with past medical history of paroxysmal A. fib, hypertension, stage III non-Hodgkin's lymphoma status post chemotherapy who came into the hospital with altered mental status. PEG tube site cellulitis - ID following, appreciate their assistance - wound culture positive for Kleb pneumo sensitive to Levaquin - BCX shows no growth x 3 days - continue on po Levaquin x 5 days per ID. Abx discontinued but still with purulence drainage and erythema around PEG site and just below. Will discuss with ID. - wound care following, appreciate their assistance. Per their recommendations, please cleanse around PEG tube site with normal saline and apply drain sponge around tube secure tube and drain sponge with medifix tape change as needed. Please use skin prep before applying adhesives to skin. Continue. 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 - CT of the abdomen showed bladder mass right posteriorly with apparent extravesical extension and clot formation. - Urology spoke with family member, daughter, states that he's not recommending biopsy of the bladder mass. However daughter insisted on biopsy. Patient s/p cystoscopy and palliative transurethral resection of bladder tumor greater than 5 cm originating from right bladder wall performed by Dr. Sewell . 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 - Oncology following - appreciate their assistance. Family requesting aggressive therapy. CT chest negative for malignancy. MRI completed. Patient is not a candidate for chemotherapy. Family has decided on palliative XRT treatment and would like it to start MIGEL. Consult placed for radiation oncology. - Palliative care following, appreciate their assistance. - Continue to flush lopez catheter PRN. 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 Intermittently tracks with eyes. - Continue Keppra 500mg BID for seizure prophylaxis. Keppra level 17.8. - PT/OT signed off as patient is unable to participate. - On Paxil 20 by mouth daily for depression. - On acetaminophen with codeine for pain scale of 2-10. - Morphine 1 mg every 24 hours when necessary for dressing change Chronic respiratory failure secondary to CVA - Status post tracheostomy. Continue pulmonary toilet and bronchodilators as needed. Continue trach care, suctioning. Increased secretions improved with scheduled Levsin. Decreased dosing of scheduled Levsin to q8h. - Trach changed to size #6 XLT on 01/09 - Duo nebs every 4 hours while awake - Pulmonary currently following, appreciate assistance. Atrial fibrillation, controlled Hypertension Dyslipidemia - Continue rate control with Cardizem and metoprolol. - [id number] score 4 - Echocardiogram in November 2015 shows preserved ejection fraction. - Coumadin discontinued secondary to bleeding from sacral wound. No active bleeding noted. Resume Coumadin 5mg daily. Pharmacy to dose. Monitor INR, currently subtherapeutic. - Continue aspirin History of non-Hodgkin's lymphoma - Status post brain biopsy on December 13 by neurosurgery. Pathology consistent with acute infarct without evidence of lymphoma. Diabetes mellitus Type 2 - Hemoglobin A1c is 5.5. - Fingersticks have been stable and were DC'd 02/01/17 Decubitus ulcer stage IV - Status post wide excision of sacral skin and biopsy of the cavity lining with debridement on 07/22/16. - Continue wound care, twice-daily dressing changes. Wound care recommendations last updated 12/12/16. Continue pressure relief measures including turning and positioning. - Patient's family has declined a diverting colostomy. Previous Wound culture growing Klebsiella and Enterococcus Faecalis. Previously on Augmentin. - Wound care last saw patient on 02/25/17, no new recommendations continue packing with Betadine moistened rolled Janis and covered with ABD pad and paper tape to secure. - Continue to monitor. Continue pressure-relief. - Morphine 1 mg every 24 hours when necessary for dressing change - confirmed with nursing staff continued dressing changes BID Protein calorie malnutrition Gastroesophageal reflux disease Gastric ulcer, reflux esophagitis Diarrhea, negative for C. difficile. Improved - EGD on 07/30/16 showed gastric ulcers. Continue on Prevacid 30 mg Q12. - G/J tube clogged, IR consulted to evaluate. Replaced on 02/25/17 - TF held 03/16 due to emesis. No recurrence. TF resumed yesterday - patient tolerating. Sectionizer consulted to assist with rate/needs. Per their recommendations, Rec increasing TF'ing 10ml/hr Q 6hr, as tolerated, to goal rate 55ml/hr. Rec to discontinue the Ashish r/t pt has received Ashish for Rec dosing of 4-weeks to promote new tissue growth. - Continue bowel regimen with hold parameters, Lactinex and Imodium. (+)BM overnight x 1. Klebsiella/Pseudomonas/staph aureus HCAP PSAE UTI - S/p Cefepime. Monitor for signs of infections. - strep pneumonia and Legionella urinary Ag is negative - C-diff PCR negative on 01/13 - 01/09 BC : Staph Epi, Urine cx: Pseudomonas, Sputum cx: Pseudomonas, kleb, Staph. - Patient was pancultured on 01/19 (Blood, sputum, urine) NGTD in urine and blood. Sputum + for pseudomonas. Likely colonization. Hyponatremia - mild - appears stable - monitor as indicated Anemia - appears stable - continue with iron supplementation and Vit C DVT prophylaxis: SCDs. Heparin 5,000 units sq Q8hr Discussed with nursing staff and Dr. Lala Problem Qualifiers (1) CVA (cerebral vascular accident): (2) DM (diabetes mellitus): Jaz Peraza Mar 20, 2017 10:26
--- NOTE | 2017-03-20 14:35 | HHI.PR ---
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 Objective Vital Signs Date Time Temp Pulse Resp B/P (MAP) Pulse Ox O2 Delivery O2 Flow Rate FiO2 03/20/17 13:57 107 18 114/71 (85) 100 03/20/17 12:00 98.3 111 17 110/74 (86) 99 03/20/17 11:44 99 T-piece 28 03/20/17 11:43 99 T-piece 28 03/20/17 09:55 100 T-Piece 5.00 28 03/20/17 08:00 97.5 104 16 106/65 (79) 99 03/20/17 00:00 99.3 108 20 109/65 (80) 99 03/19/17 23:36 96.8 110 20 115/54 (74) 99 03/19/17 21:54 T-Piece 5.00 03/19/17 20:35 100 T-piece 6.00 28 03/19/17 16:00 96.8 110 17 104/65 (78) 97 03/19/17 14:43 99 T-piece 5.00 28 I/O 03/19/17 03/19/17 03/19/17 03/20/17 03/20/17 03/20/17 07:00 15:00 23:00 07:00 15:00 23:00 Intake Total 459 ml 682 ml 336 ml Output Total 650 ml 350 ml 500 ml Balance -191 ml 332 ml -164 ml Intake Oral 0 ml Tube Feeding 359 ml 482 ml 336 ml Tube Irrigant 100 ml Other 200 ml Output Urine Total 650 ml 350 ml 500 ml # Bowel Movements 2 0 Result Diagram: 03/19/17 1528 03/19/17 1528 Procedures 01/02/16 PEG placement 01/02/16 tracheostomy 07/22/2016 Wide excision of sacral skin wound, biopsy of the cavity lining and debridement. PEG tube replacement 07/29/16 Objective Remarks GENERAL: SKIN: Warm and dry. HEAD: Atraumatic. Normocephalic. EYES: Pupils equal and round. No scleral icterus. No injection or drainage. ENT: No nasal bleeding or discharge. Mucous membranes pink and moist. NECK: Trachea midline. No JVD. CARDIOVASCULAR: Regular rate and rhythm. RESPIRATORY: No accessory muscle use. Clear to auscultation. Breath sounds equal bilaterally. GASTROINTESTINAL: Abdomen soft, non-tender, nondistended. Hepatic and splenic margins not palpable. MUSCULOSKELETAL: Extremities without clubbing, cyanosis, or edema. No obvious deformities. NEUROLOGICAL: Awake and alert. No obvious cranial nerve deficits. Motor grossly within normal limits. Five out of 5 muscle strength in the arms and legs. Normal speech. PSYCHIATRIC: Appropriate mood and affect; insight and judgment normal. Laboratory Tests Test 01/05/17 01/06/17 08:35 08:41 Red Blood Count 4.43 MIL/MM3 (4.50-5.90) Hemoglobin 9.9 GM/DL (13.0-17.0) Hematocrit 32.0 % (39.0-51.0) Mean Corpuscular Volume 72.1 FL (80.0-100.0) Mean Corpuscular Hemoglobin 22.3 PG (27.0-34.0) Mean Corpuscular Hemoglobin 30.9 % Concent (32.0-36.0) Red Cell Distribution Width 19.9 % (11.6-17.2) Sodium Level 134 MEQ/L 133 MEQ/L (136-145) (136-145) Random Glucose 136 MG/DL 132 MG/DL (74-106) (74-106) Creatinine 0.59 MG/DL (0.60-1.30) GENERAL: SKIN: Warm and dry. HEAD: Atraumatic. Normocephalic. EYES: Pupils equal and round. No scleral icterus. No injection or drainage. ENT: No nasal bleeding or discharge. Mucous membranes pink and moist. NECK: Trachea midline. No JVD. TRACH. [place] CARDIOVASCULAR: Regular rate and rhythm. RESPIRATORY: No accessory muscle use. Clear to auscultation. Breath sounds equal bilaterally. GASTROINTESTINAL: Abdomen soft, non-tender, nondistended. Hepatic and splenic margins not palpable. MUSCULOSKELETAL: Extremities without clubbing, cyanosis, or edema. No obvious deformities. NEUROLOGICAL: Awake and alert. No obvious cranial nerve deficits. Motor grossly within normal limits. Five out of 5 muscle strength in the arms and legs. Normal speech. PSYCHIATRIC: Appropriate mood and affect; insight and judgment normal. 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 TOILET To start RT TODAY Brandon Taylor MD Mar 20, 2017 14:35
[2017-03-20] MEDS: SENNOSIDES SYRUP 8.8 MG/5 ML CUP PEG SCH (18:02)
[2017-03-20] MEDS: PARoxetine HCL SUSP 20 MG/10 ML UDC PEG SCH (18:02)
[2017-03-20] MEDS: WARFARIN SOD 5 MG TAB PO SCH (18:02)
[2017-03-21] MEDS: HYOSCYAMINE 0.125 MG TAB G-TUBE SCH ×3 (04:10→21:07)
[2017-03-21] MEDS: HEPARIN SODIUM - SQ 10,000 UNITS/ML VIAL SQ SCH ×3 (04:11→21:06)
[2017-03-21] MEDS: ACETIC ACID 0.25% SOLN 1000 ML IRR BTL IRRIGATION SCH ×3 (04:12→21:10)
[2017-03-21 06:54] LABS: INTERNATIONAL NORMALIZED RATIO 1.5 RATIO; PROTHROMBIN TIME - PATIENT 16.6 SEC (9.8-11.6)
[2017-03-21 08:00] VITALS: BP 107/71; PULSE 113; RESP 20; TEMP 98.7; O2SAT 100
--- NOTE | 2017-03-21 08:37 | HHI.PR ---
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 Objective Vital Signs Date Time Temp Pulse Resp B/P (MAP) Pulse Ox O2 Delivery O2 Flow Rate FiO2 03/20/17 23:33 97.9 115 19 115/72 (86) 97 03/20/17 21:47 T-Piece 03/20/17 20:33 100 T-piece 28 03/20/17 20:33 100 T-piece 28 03/20/17 20:00 97.8 114 20 121/73 (89) 99 03/20/17 18:04 106 16 107/65 (79) 100 03/20/17 16:00 96.5 100 17 106/70 (82) 99 03/20/17 13:57 107 18 114/71 (85) 100 03/20/17 12:00 98.3 111 17 110/74 (86) 99 03/20/17 11:44 99 T-piece 28 03/20/17 11:43 99 T-piece 28 03/20/17 09:55 100 T-Piece 5.00 28 I/O 03/20/17 03/20/17 03/20/17 03/21/17 03/21/17 03/21/17 07:00 15:00 23:00 07:00 15:00 23:00 Intake Total 336 ml 485 ml 348 ml Output Total 500 ml 400 ml 750 ml Balance -164 ml 85 ml -402 ml Intake Oral 0 ml 0 ml Tube Feeding 336 ml 285 ml 348 ml Other 200 ml Output Urine Total 500 ml 400 ml 750 ml # Bowel Movements 2 1 Result Diagram: 03/19/17 1528 03/19/17 1528 Procedures 01/02/16 PEG placement 01/02/16 tracheostomy 07/22/2016 Wide excision of sacral skin wound, biopsy of the cavity lining and debridement. PEG tube replacement 07/29/16 Objective Remarks GENERAL: SKIN: Warm and dry. HEAD: Atraumatic. Normocephalic. EYES: Pupils equal and round. No scleral icterus. No injection or drainage. ENT: No nasal bleeding or discharge. Mucous membranes pink and moist. NECK: Trachea midline. No JVD. CARDIOVASCULAR: Regular rate and rhythm. RESPIRATORY: No accessory muscle use. Clear to auscultation. Breath sounds equal bilaterally. GASTROINTESTINAL: Abdomen soft, non-tender, nondistended. Hepatic and splenic margins not palpable. MUSCULOSKELETAL: Extremities without clubbing, cyanosis, or edema. No obvious deformities. NEUROLOGICAL: Awake and alert. No obvious cranial nerve deficits. Motor grossly within normal limits. Five out of 5 muscle strength in the arms and legs. Normal speech. PSYCHIATRIC: Appropriate mood and affect; insight and judgment normal. Laboratory Tests Test 01/05/17 01/06/17 08:35 08:41 Red Blood Count 4.43 MIL/MM3 (4.50-5.90) Hemoglobin 9.9 GM/DL (13.0-17.0) Hematocrit 32.0 % (39.0-51.0) Mean Corpuscular Volume 72.1 FL (80.0-100.0) Mean Corpuscular Hemoglobin 22.3 PG (27.0-34.0) Mean Corpuscular Hemoglobin 30.9 % Concent (32.0-36.0) Red Cell Distribution Width 19.9 % (11.6-17.2) Sodium Level 134 MEQ/L 133 MEQ/L (136-145) (136-145) Random Glucose 136 MG/DL 132 MG/DL (74-106) (74-106) Creatinine 0.59 MG/DL (0.60-1.30) GENERAL: SKIN: Warm and dry. HEAD: Atraumatic. Normocephalic. EYES: Pupils equal and round. No scleral icterus. No injection or drainage. ENT: No nasal bleeding or discharge. Mucous membranes pink and moist. NECK: Trachea midline. No JVD. TRACH. [place] CARDIOVASCULAR: Regular rate and rhythm. RESPIRATORY: No accessory muscle use. Clear to auscultation. Breath sounds equal bilaterally. GASTROINTESTINAL: Abdomen soft, non-tender, nondistended. Hepatic and splenic margins not palpable. MUSCULOSKELETAL: Extremities without clubbing, cyanosis, or edema. No obvious deformities. NEUROLOGICAL: Awake and alert. No obvious cranial nerve deficits. Motor grossly within normal limits. Five out of 5 muscle strength in the arms and legs. Normal speech. PSYCHIATRIC: Appropriate mood and affect; insight and judgment normal. 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 TOILET relieved RT yesterday Brandon Taylor MD Mar 21, 2017 08:37
[2017-03-21] MEDS: ARTIFICIAL TEARS OPTH SOLN 15 ML BTL EACH EYE SCH ×2 (09:00→21:07)
[2017-03-21] MEDS: DILTIAZEM HCL 30 MG TAB PEG SCH ×4 (09:00→21:00)
[2017-03-21] MEDS: BACITRACIN OINT 0.9 GM PKT TOPICAL SCH (09:00)
[2017-03-21] MEDS: BACITRACIN TOP OINT 15 GM TUBE TOP SCH ×2 (09:00→21:09)
[2017-03-21] MEDS: NYSTATIN 100,000 U/GM PWD 15 GM BTL TOPICAL SCH ×2 (09:00→21:09)
[2017-03-21] MEDS: SODIUM CHLORIDE 0.65% NASAL SPRAY 45 ML BTL NASAL SCH ×2 (09:00→21:08)
[2017-03-21] MEDS: ASPIRIN 325 MG TAB TUBE SCH (09:25)
[2017-03-21] MEDS: levETIRAcetam 500 MG/5 ML UDC TUBE SCH ×2 (09:25→21:06)
[2017-03-21] MEDS: FERROUS SULFATE 300 MG /5ML UDC PO SCH (09:25)
[2017-03-21] MEDS: ASCORBIC ACID 500 MG TAB PO SCH (09:25)
[2017-03-21] MEDS: LANSOPRAZOLE SOLUTAB 30 MG TAB NG SCH ×2 (09:25→21:07)
--- NOTE | 2017-03-21 09:32 | HHI.PR ---
Subjective Remarks This is a pleasant 60 y/o male with Paroxysmal Atrial Fibrillation, Hypertension , Stage IIIa Non Hodgkin Lymphoma, status post Chemotherapy with Rituxan, CHOP 2014, who was brought in to ER with AMS CT scan of the brain showed no focal or acute intracranial Hemorrhage, he had recent Brain Biopsy he became obtunded in ER and was Intubated, Transferred initially to ICU, ID specialist started on 08/23/16 with diagnosis of Sacral Ulcer and Pneumonia Amoxicillin and Cefepime for the next two months. so he has all September and perhaps first days of October with antibiotics. 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 Patient seen and examined today. discussed with his Mother in the room he continue as Full Code even his prognosis is Poor. Objective Vital Signs Date Time Temp Pulse Resp B/P (MAP) Pulse Ox O2 Delivery O2 Flow Rate FiO2 03/21/17 08:00 98.7 113 20 107/71 (83) 100 03/20/17 23:33 97.9 115 19 115/72 (86) 97 03/20/17 21:47 T-Piece 03/20/17 20:33 100 T-piece 28 03/20/17 20:33 100 T-piece 28 03/20/17 20:00 97.8 114 20 121/73 (89) 99 03/20/17 18:04 106 16 107/65 (79) 100 03/20/17 16:00 96.5 100 17 106/70 (82) 99 03/20/17 13:57 107 18 114/71 (85) 100 03/20/17 12:00 98.3 111 17 110/74 (86) 99 03/20/17 11:44 99 T-piece 28 03/20/17 11:43 99 T-piece 28 03/20/17 09:55 100 T-Piece 5.00 28 I/O 03/20/17 03/20/17 03/20/17 03/21/17 03/21/17 03/21/17 06:59 14:59 22:59 06:59 14:59 22:59 Intake Total 336 ml 485 ml 348 ml Output Total 500 ml 400 ml 750 ml Balance -164 ml 85 ml -402 ml Intake Oral 0 ml 0 ml Tube Feeding 336 ml 285 ml 348 ml Other 200 ml Output Urine Total 500 ml 400 ml 750 ml # Bowel Movements 2 1 Result Diagram: 03/19/17 1528 03/19/17 1528 Imaging Last Impressions Chest X-Ray 03/16/17 0000 Signed Impressions: Service Date/Time: Thursday, March 16, 2017 15:18 - CONCLUSION: 1. Mild perihilar infiltrates. 2. Tracheostomy tube remains in good position 4 cm above the geno Eduardo Valenzuela MD Brain MRI 03/14/17 0000 Signed Impressions: Service Date/Time: Tuesday, March 14, 2017 12:41 - CONCLUSION: The signal abnormality and enhancement within the bilateral occipital lobes and colin have decreased since the prior examinations. No new abnormality is identified. There is no new enhancing area or signs of a recent ischemia. Glen Gordon MD Chest CT 03/10/17 0000 Signed Impressions: Service Date/Time: Friday, March 10, 2017 21:00 - CONCLUSION: 1. Periaortic soft tissue along the proximal descending thoracic aorta not previously seen. This represents either lymphomatous involvement or adjacent consolidated airspace disease. 2. Mild bilateral airspace disease 3. No evidence of significant lymphadenopathy involving the mediastinum, hilar regions, axillas or supraclavicular lore chain. 4. Tracheostomy tube in place. Ernesto Kulkarni MD Abdomen/Pelvis CT 02/27/17 0000 Signed Impressions: Service Date/Time: February 02:24 - CONCLUSION: 1. Abdominal aortic aneurysm. 2. Bladder mass is noted on the right posteriorly with apparent extravesical extension and clot formation. 3. Left renal cyst. 4. Left lower lobe atelectasis. 5. Large sacral decubitus ulcer with bony destruction and sclerosis of the sacrum mid to left lateral portion in the region of S3 and inferiorly which would suggest chronic osteomyelitis in the appropriate clinical setting. Rajan Grnaados MD Soft Tissue Ultrasound 02/26/17 0000 Signed Impressions: Service Date/Time: Sunday, February 26, 2017 12:52 - CONCLUSION: 1. Just inferior to the G-tube in the left abdomen, there is a superficial 3.8 x 2.9 0.9 cm complex fluid collection in the subcutaneous tissues. 2. Findings are nonspecific. This could represent a small seroma or abscess. Would consider CT scan of the abdomen without contrast for further evaluation to determine if there is intraperitoneal extension. Bobby Gray MD Gastrostomy Tube Placement 02/25/17 0000 Signed Impressions: Service Date/Time: Saturday, February 25, 2017 14:19 - CONCLUSION: Uncomplicated exchange of gastroenteric feeding tube for gastrostomy tube as above. Positioning confirmed. The tube can be used immediately. Glen Zamora MD Tube Change 02/14/17 0000 Signed Impressions: Service Date/Time: Tuesday, February 14, 2017 00:00 - CONCLUSION: Uncomplicated gastrojejunostomy tube exchange as above. Scott Griffin MD Head CT 01/09/17 0000 Signed Impressions: Service Date/Time: December 17:43 - CONCLUSION: 1. No acute hemorrhage or mass effect. 2. 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 3. Atrophy. Gerald Mukherjee MD CT Angiography 01/09/17 0000 Signed Impressions: Service Date/Time: December 17:49 - CONCLUSION: 1. No evidence of pulmonary emboli. 2. Patchy consolidation in both posterior lower lobes right greater than left. This could represent pneumonia. 3. 2 small noncalcified pulmonary nodules which are nonspecific finding. Short-term CT followup is recommended beginning in 6 months with a noncontrast outpatient CT. Gerald Mukherjee MD Tube Check 12/04/16 0000 Signed Impressions: Service Date/Time: Sunday, December 04, 2016 17:58 - CONCLUSION: Uncomplicated tube injection as above. the tube is in good position and functions normally. Moises Ramírez MD Abdomen X-Ray 08/31/16 0000 Signed Impressions: Service Date/Time: Wednesday, August 31, 2016 16:36 - CONCLUSION: 1. No acute findings. Mild constipation. Durga Dotson MD Head Magnetic Resonance Angiography 03/05/16 0000 Signed Impressions: Service Date/Time: Saturday, March 05, 2016 09:26 - CONCLUSION: Persistent high-grade subtotal occlusive stenotic lesions in the distal right vertebral artery and proximal basilar artery with significant improvement in flow and recanalization following initial presentation of thrombosis. Stable interstitial circulation without significant stenosis. Ernesto Kulkarni MD Neck Magnetic Resonance Angiography 12/22/15 1445 Signed Impressions: Service Date/Time: Tuesday, December 22, 2015 09:22 - CONCLUSION: Variant origin of the left vertebral artery from the aortic arch. No evidence of carotid stenosis. Glen Zamora MD Head/Brain Mag Res Venography 12/22/15 0000 Signed Impressions: Service Date/Time: Tuesday, December 22, 2015 09:22 - CONCLUSION: Normal MRV. Jonel Jones Jr., MD Procedures 07/22/2016 Wide excision of sacral skin wound, biopsy of the cavity lining and debridement. PEG removal and Gj tube placement 07/29/16 VAC changes- M-W-F 10/23/16, 11/18, 12/31- GJ tube replacement 01/02/16 PEG placement 01/02/16 tracheostomy 02/25/17 PEG replacement 03/03/17 Cystoscopy and palliative transurethral resection of bladder tumor greater than 5cm originating from the right bladder wall Other Results Laboratory Tests Test 12/21/15 05:50 12/22/15 08:15 12/23/15 09:15 12/23/15 10:10 Metamyelocytes 3 % Red Cell Morphology Comment NORMAL Troponin I LESS THAN 0.02 NG/ML Nasal Screen MRSA (PCR) NEGATIVE Urine Osmolality 697 MOSM/KG Serum Osmolality 283 MOSM/KG Thyroid Stimulating Hormone 3rd Gen 1.020 uIU/ML Test 02/29/16 12:50 03/08/16 23:00 04/26/16 06:16 05/18/16 08:15 Target Cells 1+ Direct Bilirubin LESS THAN 0.1 MG/DL Indirect Bilirubin 0.1 MG/DL B-Type Natriuretic Peptide 19 PG/ML Polychromasia 2.0 % Test 06/19/16 07:47 07/28/16 14:50 08/03/16 16:10 08/07/16 06:47 Basophils % 2 % Tear Drop Cells 1+ Ovalocytes 1+ Urine Yeast (Budding) FEW Hematology Comments Test 08/27/16 00:30 10/19/16 12:30 11/26/16 18:06 01/09/17 15:45 Urine Calcium Oxalate Crystals RARE /hpf Urine Hyaline Casts 6 /lpf Urine Granular Casts 1 /lpf Blood Gas Liter Flow 5 L/M Urine Amorphous Sediment RARE Test 01/09/17 15:46 01/09/17 17:00 01/10/17 10:55 01/28/17 12:50 Differential Total Cells Counted 100 Neutrophils % (Manual) 83 % Band Neutrophils % 6 % Lymphocytes % 4 % Monocytes % 4 % Eosinophils % 2 % Neutrophils # (Manual) 11.1 TH/MM3 Myelocytes 1 % Platelet Estimate NORMAL Platelet Morphology Comment NORMAL Blood Gas Puncture Site LT RADIAL Blood Gas Patient Temperature 98.6 Blood Gas HCO3 21 mmol/L Blood Gas Base Excess -3.2 mmol/L Blood Gas Oxygen Saturation 95 % Arterial Blood pH 7.42 Arterial Blood Partial Pressure CO2 33 mmHg Arterial Blood Partial Pressure O2 99 mmHg Arterial Blood Oxygen Content 12.4 Vol % Arterial Blood Carboxyhemoglobin 1.7 % Arterial Blood Methemoglobin 1.0 % Blood Gas Hemoglobin 9.1 G/DL Oxygen Delivery Device VENTILATOR Blood Gas Ventilator Setting PRVC/14/500/0.8/+5 Blood Gas Inspired Oxygen 50 % Lactic Acid Level 2.7 mmol/L Stool C. difficile Toxin (PCR) NEGATIVE Stl C. difficile Toxin Epiderm 027 PRESUMPTIVE NEGATIVE Test 01/31/17 05:35 02/12/17 11:17 02/18/17 12:40 02/22/17 16:43 Hemoglobin A1c 5.5 % Iron Level 30 MCG/DL Total Iron Binding Capacity 230 MCG/DL Percent Iron Saturation 13.1 % Ferritin 57 NG/ML Urine Color YELLOW Urine Turbidity HAZY Urine pH 6.5 Urine Specific [place] 1.009 Urine Protein TRACE mg/dL Urine Glucose (UA) NEG mg/dL Urine Ketones NEG mg/dL Urine Occult Blood MOD Urine Nitrite NEG Urine Bilirubin NEG Urine Urobilinogen LESS THAN 2.0 MG/DL Urine Leukocyte Esterase LARGE Urine RBC 12 /hpf Urine WBC 57 /hpf Urine WBC Clumps FEW Urine Squamous Epithelial Cells <1 /hpf Urine Bacteria MOD /hpf Urine Mucus FEW /lpf Microscopic Urinalysis Comment CATH-CULTURE IND Test 03/04/17 22:14 03/12/17 11:06 03/13/17 06:44 03/15/17 12:03 Levetiracetam (Keppra) Level 17.8 mcg/mL Vancomycin Level Trough 26.5 MCG/ML Random Vancomycin Level 19.8 COMMENT Activated Partial Thromboplast Time 28.3 SEC Test 03/16/17 16:14 03/19/17 15:28 03/21/17 06:24 Blood Urea Nitrogen 24 MG/DL 30 MG/DL Creatinine 1.30 MG/DL 1.24 MG/DL Random Glucose 129 MG/DL 129 MG/DL Total Protein 9.2 GM/DL Albumin 2.4 GM/DL Calcium Level 9.0 MG/DL 9.0 MG/DL Alkaline Phosphatase 84 U/L Aspartate Amino Transf (AST/SGOT) 36 U/L Alanine Aminotransferase (ALT/SGPT) 13 U/L Total Bilirubin 0.3 MG/DL Sodium Level 135 MEQ/L 135 MEQ/L Potassium Level 3.9 MEQ/L 3.8 MEQ/L Chloride Level 98 MEQ/L 99 MEQ/L Carbon Dioxide Level 24.0 MEQ/L 25.7 MEQ/L White Blood Count 5.0 TH/MM3 Red Blood Count 3.58 MIL/MM3 Hemoglobin 7.7 GM/DL Hematocrit 25.3 % Mean Corpuscular Volume 70.7 FL Mean Corpuscular Hemoglobin 21.6 PG Mean Corpuscular Hemoglobin Concent 30.5 % Red Cell Distribution Width 20.2 % Platelet Count 190 TH/MM3 Mean Platelet Volume 8.0 FL Neutrophils (%) (Auto) 76.5 % Lymphocytes (%) (Auto) 14.5 % Monocytes (%) (Auto) 5.5 % Eosinophils (%) (Auto) 2.6 % Basophils (%) (Auto) 0.9 % Neutrophils # (Auto) 3.8 TH/MM3 Lymphocytes # (Auto) 0.7 TH/MM3 Monocytes # (Auto) 0.3 TH/MM3 Eosinophils # (Auto) 0.1 TH/MM3 Basophils # (Auto) 0.0 TH/MM3 CBC Comment DIFF FINAL Differential Comment Phosphorus Level 2.5 MG/DL Magnesium Level 2.0 MG/DL Anion Gap 10 MEQ/L Estimat Glomerular Filtration Rate 59 ML/MIN Prothrombin Time 16.6 SEC Prothromb Time International Ratio 1.5 RATIO Objective Remarks GENERAL: WDWN male, in no apparent distress. Nonverbal. Asleep but easily opens eyes to voice. Does not track. Does not follow commands. SKIN: Warm and dry. No rash noted. HEENT: Normocephalic. Eyes non-icteric without injection or drainage. Nose without bleeding. NECK: Trachea midline. T-tube in place. CARDIOVASCULAR: Regular rate and rhythm without murmurs, gallops, or rubs. RESPIRATORY: Coarse BS. No accessory muscle use. Tpiece in place with scant amount of secretions. GASTROINTESTINAL: Abdomen soft, non-tender, nondistended. BS active x [address] quads. [address]J tube in place, still with some purulence noted around tube site. Also area of erythema with scant amount of purulent drainage just below GJ tube. : Lopez catheter in place with clear yellow urine in the bag. MUSCULOSKELETAL: Extremities without clubbing, cyanosis, Bilateral feet +1 edema. Upper extremities slightly edematous. NEUROLOGICAL: Awake. Patient not following commands. Not tracking. Nonverbal. Medications and IVs Current Medications Medications (Trade) Dose Ordered Sig/Junior Route Start Time Stop Time Status Last Admin (NS Flush) 2 ml UNSCH PRN IVF 12/21/15 06:00 09/28/16 21:18 (Keppra Liq) 500 mg Q12HR TUBE 12/27/15 21:00 03/21/17 09:25 (Tylenol 650 Mg/ 20 ml Liq) 650 mg Q6H PRN TUBE 12/30/15 15:15 03/16/17 14:22 (Mycostatin Powder) 1 applic Q12HR TOPICAL 01/08/16 21:00 03/21/17 09:00 (Pill Splitter) 1 ea UNSCH PRN OTHER 01/14/16 08:30 (Acetic Acid 0.25% Irr Btl) 10 ml Q8HR IRRIGATION 02/05/16 16:00 03/21/17 04:12 (Paxil Liq) 20 mg DAILY@1900 PEG 03/12/16 19:00 Future hold 03/20/17 18:02 (Zofran Inj) 4 mg Q6HR PRN IV PUSH 04/14/16 19:45 03/16/17 16:00 (Xopenex Neb) 0.63 mg Q4HR NEB PRN NEB 05/05/16 12:00 03/06/17 10:45 (Aspirin) 325 mg DAILY TUBE 05/27/16 11:40 Future hold 03/21/17 09:25 (Heparin Inj) 5,000 units Q8HR SQ 06/11/16 14:00 Future hold 03/21/17 04:11 (Baciguent Oint) 1 applic BID TOP 07/20/16 10:00 03/21/17 09:00 ([place] Angel Dumont) 1 spray BID NASAL 08/01/16 21:00 03/21/17 09:00 (Tears Naturale Opth Soln) 1 drop BID EACH EYE 09/05/16 21:00 03/21/17 09:00 (Morphine Inj) 1 mg Q24H PRN IV PUSH 09/17/16 14:30 10/22/16 02:00 (Dulcolax Supp) 10 mg DAILY PRN RECTAL 09/26/16 15:30 12/08/16 09:17 (Tylenol - Codeine 120-12 Liq) 5 ml Q4H PRN G-TUBE 12/27/16 15:30 03/19/17 18:10 (Imodium Liq) 2 mg Q6H PRN PEG 12/27/16 15:30 03/18/17 20:25 (Milk Of Magnesia Liq) 30 ml DAILY PRN PEG 12/27/16 15:30 02/11/17 08:46 (Milk Of Magnesia Liq) 30 ml DAILY PEG 12/28/16 09:00 Future Hold 01/19/17 08:44 (Senna Liq) 8.8 mg DAILY@1600 PEG 12/27/16 16:00 03/20/17 18:02 (Lactulose Liq) 30 ml DAILY PRN PEG 12/27/16 15:30 (Cardizem) 30 mg QID PEG 01/09/17 18:00 03/20/17 22:02 (D50w (Vial) Inj) 50 ml UNSCH PRN IV 01/09/17 16:00 (Glucagon Inj) 1 mg UNSCH PRN OTHER 01/09/17 16:00 (Prevacid Odt) 30 mg BID NG 01/26/17 21:00 03/21/17 09:25 (Ferrous Sulfate Liq) 300 mg DAILY PO 02/14/17 09:00 03/21/17 09:25 (Vitamin C) 1,000 mg DAILY PO 02/14/17 09:00 03/21/17 09:25 (Bacitracin Oint Packet) 0.9 gm DAILY TOPICAL 02/25/17 09:00 03/21/17 09:00 (Levsin) 0.25 mg Q8HR G-TUBE 03/18/17 22:00 03/21/17 04:10 (Coumadin) 5 mg DAILY@1600 PO 03/19/17 16:30 03/20/17 18:02 Pharmacy Profile Note 0 ml @ 0 mls/hr UNSCH OTHER 03/19/17 15:30 A/P Assessment and Plan 60 year-old male with past medical history of paroxysmal A. fib, hypertension, stage III non-Hodgkin's lymphoma status post chemotherapy who came into the hospital with altered mental status. PEG tube site cellulitis - ID following, appreciate their assistance - wound culture positive for Kleb pneumo sensitive to Levaquin - BCX shows no growth x 3 days - continue on po Levaquin x 5 days per ID. Abx discontinued but still with purulence drainage and erythema around PEG site and just below. Will discuss with ID. - wound care following, appreciate their assistance. Per their recommendations, please cleanse around PEG tube site with normal saline and apply drain sponge around tube secure tube and drain sponge with medifix tape change as needed. Please use skin prep before applying adhesives to skin. Continue. 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 - CT of the abdomen showed bladder mass right posteriorly with apparent extravesical extension and clot formation. - Urology spoke with family member, daughter, states that he's not recommending biopsy of the bladder mass. However daughter insisted on biopsy. Patient s/p cystoscopy and palliative transurethral resection of bladder tumor greater than 5 cm originating from right bladder wall performed by Dr. Sewell . 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 - Oncology following - appreciate their assistance. Family requesting aggressive therapy. CT chest negative for malignancy. MRI completed. Patient is not a candidate for chemotherapy. Family has decided on palliative XRT treatment and would like it to start MIGEL. Consult placed for radiation oncology. - Palliative care following, appreciate their assistance. - Continue to flush lopez catheter PRN. 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 Intermittently tracks with eyes. - Continue Keppra 500mg BID for seizure prophylaxis. Keppra level 17.8. - PT/OT signed off as patient is unable to participate. - On Paxil 20 by mouth daily for depression. - On acetaminophen with codeine for pain scale of 2-10. - Morphine 1 mg every 24 hours when necessary for dressing change Chronic respiratory failure secondary to CVA - Status post tracheostomy. Continue pulmonary toilet and bronchodilators as needed. Continue trach care, suctioning. Increased secretions improved with scheduled Levsin. Decreased dosing of scheduled Levsin to q8h. - Trach changed to size #6 XLT on 01/09 - Duo nebs every 4 hours while awake - Pulmonary currently following, appreciate assistance. Atrial fibrillation, controlled Hypertension controlled. Dyslipidemia - Continue rate control with Cardizem and metoprolol. - [id number] score 4 - Echocardiogram in November 2015 shows preserved ejection fraction. - Coumadin discontinued secondary to bleeding from sacral wound. No active bleeding noted. Resume Coumadin 5mg daily. Pharmacy to dose. Monitor INR, currently subtherapeutic. - Continue aspirin History of non-Hodgkin's lymphoma - Status post brain biopsy on December 13 by neurosurgery. Pathology consistent with acute infarct without evidence of lymphoma. Diabetes mellitus Type 2 - Hemoglobin A1c is 5.5. - Fingersticks have been stable and were DC'd 02/01/17 Decubitus ulcer stage IV - Status post wide excision of sacral skin and biopsy of the cavity lining with debridement on 07/22/16. - Continue wound care, twice-daily dressing changes. Wound care recommendations last updated 12/12/16. Continue pressure relief measures including turning and positioning. - Patient's family has declined a diverting colostomy. Previous Wound culture growing Klebsiella and Enterococcus Faecalis. Previously on Augmentin. - Wound care last saw patient on 02/25/17, no new recommendations continue packing with Betadine moistened rolled Janis and covered with ABD pad and paper tape to secure. - Continue to monitor. Continue pressure-relief. - Morphine 1 mg every 24 hours when necessary for dressing change - confirmed with nursing staff continued dressing changes BID Protein calorie malnutrition Gastroesophageal reflux disease Gastric ulcer, reflux esophagitis Diarrhea, negative for C. difficile. Improved - EGD on 07/30/16 showed gastric ulcers. Continue on Prevacid 30 mg Q12. - G/J tube clogged, IR consulted to evaluate. Replaced on 02/25/17 - TF held 03/16 due to emesis. No recurrence. TF resumed yesterday - patient tolerating. [employer] consulted to assist with rate/needs. Per their recommendations, Rec increasing TF'ing 10ml/hr Q 6hr, as tolerated, to goal rate 55ml/hr. Rec to discontinue the Ashish r/t pt has received Ashish for Rec dosing of 4-weeks to promote new tissue growth. - Continue bowel regimen with hold parameters, Lactinex and Imodium. (+)BM overnight x 1. Klebsiella/Pseudomonas/staph aureus HCAP PSAE UTI - S/p Cefepime. Monitor for signs of infections. - strep pneumonia and Legionella urinary Ag is negative - C-diff PCR negative on 01/13 - 01/09 BC : Staph Epi, Urine cx: Pseudomonas, Sputum cx: Pseudomonas, kleb, Staph. - Patient was pancultured on 01/19 (Blood, sputum, urine) NGTD in urine and blood. Sputum + for pseudomonas. Likely colonization. Hyponatremia - mild - appears stable - monitor as indicated Anemia - appears stable - continue with iron supplementation and Vit C DVT prophylaxis: SCDs. Heparin 5,000 units sq Q8hr Discussed with Nurse Miss Landin and his Mother in the room, all questions answered to the best of my abilities. Discharge Planning dc planning to SNF-no funding- SSI pending. Arnulfo Us MD Mar 21, 2017 09:31
[2017-03-21 12:00] VITALS: BP 112/65; PULSE 109; RESP 18; TEMP 99; O2SAT 99
[2017-03-21 14:02] VITALS: O2SAT 97
[2017-03-21 16:00] VITALS: BP 111/75; PULSE 101; RESP 13; TEMP 97; O2SAT 99
[2017-03-21] MEDS: SENNOSIDES SYRUP 8.8 MG/5 ML CUP PEG SCH (16:00)
[2017-03-21] MEDS: PARoxetine HCL SUSP 20 MG/10 ML UDC PEG SCH (17:55)
[2017-03-21] MEDS: WARFARIN SOD 5 MG TAB PO SCH (17:55)
[2017-03-21 20:00] VITALS: BP 118/57; PULSE 92; RESP 19; TEMP 97.4; O2SAT 100
[2017-03-22] VITALS (8 sets, daily range): BP systolic 99–120; BP diastolic 56–76; PULSE 98–112; RESP 18–20; TEMP 96–98.8; O2SAT 96–100
[2017-03-22] MEDS: HYOSCYAMINE 0.125 MG TAB G-TUBE SCH ×3 (05:17→21:10)
[2017-03-22] MEDS: HEPARIN SODIUM - SQ 10,000 UNITS/ML VIAL SQ SCH ×2 (05:17→14:43)
[2017-03-22] MEDS: ACETIC ACID 0.25% SOLN 1000 ML IRR BTL IRRIGATION SCH ×3 (05:18→21:14)
[2017-03-22 07:25] LABS: PROTHROMBIN TIME - PATIENT 22.3 SEC (9.8-11.6)
[2017-03-22] MEDS: ARTIFICIAL TEARS OPTH SOLN 15 ML BTL EACH EYE SCH ×2 (08:16→21:11)
[2017-03-22] MEDS: levETIRAcetam 500 MG/5 ML UDC TUBE SCH ×2 (08:16→21:11)
[2017-03-22] MEDS: FERROUS SULFATE 300 MG /5ML UDC PO SCH (08:16)
[2017-03-22] MEDS: LANSOPRAZOLE SOLUTAB 30 MG TAB NG SCH ×2 (08:17→21:10)
[2017-03-22] MEDS: ASCORBIC ACID 500 MG TAB PO SCH (08:17)
[2017-03-22] MEDS: DILTIAZEM HCL 30 MG TAB PEG SCH ×4 (08:17→21:10)
[2017-03-22] MEDS: ASPIRIN 325 MG TAB TUBE SCH (08:17)
[2017-03-22] MEDS: SODIUM CHLORIDE 0.65% NASAL SPRAY 45 ML BTL NASAL SCH ×2 (08:18→21:00)
[2017-03-22] MEDS: NYSTATIN 100,000 U/GM PWD 15 GM BTL TOPICAL SCH ×2 (08:20→21:00)
[2017-03-22] MEDS: BACITRACIN TOP OINT 15 GM TUBE TOP SCH ×2 (08:20→21:13)
[2017-03-22] MEDS: BACITRACIN OINT 0.9 GM PKT TOPICAL SCH (09:00)
[2017-03-22] MEDS: SENNOSIDES SYRUP 8.8 MG/5 ML CUP PEG SCH (14:55)
--- NOTE | 2017-03-22 18:22 | HHI.PR ---
Subjective Remarks As per RN patient had low urine output today has had loose stools lately - greenish patient is non verbal mother is at bedside afebrile Objective Vitals Vital Signs Date Time Temp Pulse Resp B/P (MAP) Pulse Ox O2 Delivery O2 Flow Rate FiO2 03/22/17 17:56 100 T-piece 6.00 28 03/22/17 17:55 100 T-piece 6.00 28 03/22/17 14:34 100 T-piece 28 03/22/17 14:34 100 T-piece 28 03/22/17 12:00 97.7 100 18 108/71 (83) 98 03/22/17 08:30 Trach Collar 6.00 28 T-Piece Humidified 03/22/17 08:00 98.8 111 20 120/76 (91) 98 03/22/17 00:00 98.1 98 19 110/67 (81) 100 03/21/17 20:00 97.4 92 19 118/57 (77) 100 I/O 03/21/17 03/21/17 03/21/17 03/22/17 03/22/17 03/22/17 07:00 15:00 23:00 07:00 15:00 23:00 Intake Total 348 ml 210 ml 0 ml 0 ml Output Total 750 ml 850 ml 500 ml 250 ml Balance -402 ml -640 ml -500 ml -250 ml Intake Oral 0 ml 0 ml 0 ml 0 ml Tube Feeding 348 ml 150 ml Other 60 ml Output Urine Total 750 ml 850 ml 500 ml 250 ml # Voids 1 # Bowel Movements 1 3 1 1 Result Diagram: 03/19/17 1528 03/19/17 1528 Objective Remarks GENERAL: Non-verbal, lethargic, opens eyes to voice and command, tracking people in room. Not in acute distress. SKIN: Warm and dry. HEENT: Normocephalic. Pupils nonicteric. Nose without bleeding. Airway patent. NECK: Supple, trachea midline. T-tube in place, site clean, dry, intact. No JVD. CARDIOVASCULAR: Regular rate and rhythm. No murmur appreciated. RESPIRATORY: Breath sounds equal bilaterally. No accessory muscle use. Trach tube in place. Bedside monitor indicated oxygen saturation was 99%. GASTROINTESTINAL: Abdomen soft, non-tender, nondistended. GJ tube noted, area around insertion was clean, dry, dressing intact. J tube clogged. MUSCULOSKELETAL: No cyanosis, or edema. PSYCHIATRIC: Pt non-verbal. Procedures 07/22/2016 Wide excision of sacral skin wound, biopsy of the cavity lining and debridement. PEG removal and Gj tube placement 07/29/16 VAC changes- M-W-F 10/23/16, 11/18, 12/31- GJ tube replacement 01/02/16 PEG placement 01/02/16 tracheostomy 02/25/17 PEG replacement 03/03/17 Cystoscopy and palliative transurethral resection of bladder tumor greater than 5cm originating from the right bladder wall Date of Insertion: Mar 03, 2017 A/P Problem List: (1) CVA (cerebral vascular accident) ICD Code: I63.9 - Cerebral infarction, unspecified Status: Acute (2) A-fib ICD Code: I48.91 - Unspecified atrial fibrillation Status: Chronic (3) DM (diabetes mellitus) ICD Code: E11.9 - Type 2 diabetes mellitus without complications Status: Chronic Assessment and Plan 60 year-old male with past medical history of paroxysmal A. fib, hypertension, stage III non-Hodgkin's lymphoma status post chemotherapy who came into the hospital with altered mental status. 1. PEG tube site cellulitis -ID was consulted - wound culture positive for Kleb pneumo sensitive to Levaquin. - BCX negative - SP treatment with IV Levaquin x 5 days however there is still purulence observed. Continue wound care and will reculture site if fever. - A per Wound care recommendations. Cleanse around PEG tube site with normal saline and apply drain sponge around tube secure tube and drain sponge with medifix tape change as needed. Please use skin prep before applying adhesives to skin. Continue. 2. 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 - CT of the abdomen showed bladder mass right posteriorly with apparent extravesical extension and clot formation. - Urology spoke with family member, daughter, states that he's not recommending biopsy of the bladder mass. However daughter insisted on biopsy. Patient s/p cystoscopy and palliative transurethral resection of bladder tumor greater than 5 cm originating from right bladder wall performed by Dr. Sewell . 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 - Oncology following - appreciate their assistance. Family requesting aggressive therapy. CT chest negative for malignancy. MRI completed. Patient is not a candidate for chemotherapy. Family has decided on palliative XRT treatment and would like it to start MIGEL. Consult placed for radiation oncology. - Palliative care following, appreciate their assistance. - Continue to flush lopez catheter PRN. Monitor for recurrence of hematuria 3. 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 Intermittently tracks with eyes. - Continue Keppra 500mg BID for seizure prophylaxis. Keppra level 17.8. - PT/OT signed off as patient is unable to participate. - On Paxil 20 by mouth daily for depression. - On acetaminophen with codeine for pain scale of 2-10. - Morphine 1 mg every 24 hours when necessary for dressing change 4. Chronic respiratory failure secondary to CVA - Status post tracheostomy. Continue pulmonary toilet and bronchodilators as needed. Continue trach care, suctioning. Increased secretions improved with scheduled Levsin. Decreased dosing of scheduled Levsin to q8h. - Trach changed to size #6 XLT on 01/09 - Duo nebs every 4 hours while awake - Pulmonary currently following, appreciate assistance. 5. Atrial fibrillation, controlled 6. Hypertension controlled. 7. Dyslipidemia - Continue rate control with Cardizem and metoprolol. - [id number] score 4 - Echocardiogram in November 2015 shows preserved ejection fraction. - Coumadin discontinued secondary to bleeding from sacral wound. No active bleeding noted. Resume Coumadin 5mg daily. Pharmacy to dose. Monitor INR, currently subtherapeutic. - Continue aspirin 8. History of non-Hodgkin's lymphoma - Status post brain biopsy on December 13 by neurosurgery. Pathology consistent with acute infarct without evidence of lymphoma. 9 Diabetes mellitus Type 2 - Hemoglobin A1c is 5.5. - Fingersticks have been stable and were DC'd 02/01/17 10. Decubitus ulcer stage IV - Status post wide excision of sacral skin and biopsy of the cavity lining with debridement on 07/22/16. - Continue wound care, twice-daily dressing changes. Wound care recommendations last updated 12/12/16. Continue pressure relief measures including turning and positioning. - Patient's family has declined a diverting colostomy. Previous Wound culture growing Klebsiella and Enterococcus Faecalis. Previously on Augmentin. - Wound care last saw patient on 02/25/17, no new recommendations continue packing with Betadine moistened rolled Janis and covered with ABD pad and paper tape to secure. - Continue to monitor. Continue pressure-relief. - Morphine 1 mg every 24 hours when necessary for dressing change - confirmed with nursing staff continued dressing changes BID 11. Protein calorie malnutrition 12. Gastroesophageal reflux disease 13. Gastric ulcer, reflux esophagitis 14. Diarrhea, negative for C. difficile. - EGD on 07/30/16 showed gastric ulcers. Continue on Prevacid 30 mg Q12. - G/J tube clogged, IR consulted to evaluate. Replaced on 02/25/17 - TF held 03/16 due to emesis. No recurrence. TF resumed yesterday - patient tolerating. Ribbon Inker consulted to assist with rate/needs. Per their recommendations, Rec increasing TF'ing 10ml/hr Q 6hr, as tolerated, to goal rate 55ml/hr. Rec to discontinue the Ashish r/t pt has received Ashish for Rec dosing of 4-weeks to promote new tissue growth. - Continue bowel regimen with hold parameters, Lactinex and Imodium. (+)BM overnight x 1. - 03/23 patient with increased loose stools as per rn repeat C diff PCR 15. Klebsiella/Pseudomonas/staph aureus HCAP 16. PSAE UTI - S/p Cefepime. Monitor for signs of infections. - strep pneumonia and Legionella urinary Ag is negative - C-diff PCR negative on 01/13 - 01/09 BC : Staph Epi, Urine cx: Pseudomonas, Sputum cx: Pseudomonas, kleb, Staph. - Patient was pancultured on 01/19 (Blood, sputum, urine) NGTD in urine and blood. Sputum + for pseudomonas. Likely colonization. 17. Hyponatremia - mild - appears stable - monitor as indicated 18. Anemia - appears stable - continue with iron supplementation and Vit C 19. Oliguria -Patient with low urine output today. -I will start the patient on IV normal saline and increase the free water via PEG tube to 300 mL every 6 hours. DVT prophylaxis: Continue SCDs, discontinue heparin subcutaneously seems INR is therapeutic. Discussed with Nurse Miss Landin and his Mother in the room, all questions answered to the best of my abilities. will increase free water to 300 ml every 6 hrs check stool for c diff pcr due to loose stools check labs monitor urine output Discharge Planning DC pending placement - SSI pending - no funding Problem Qualifiers (1) CVA (cerebral vascular accident): (2) DM (diabetes mellitus): Renny Kamara MD Mar 22, 2017 18:22
[2017-03-22] MEDS: PARoxetine HCL SUSP 20 MG/10 ML UDC PEG SCH (18:47)
[2017-03-22] MEDS: WARFARIN SOD 5 MG TAB PO SCH (18:48)
[2017-03-22 20:31] LABS: HEMATOCRIT 24.9 % (39.0-51.0); MEAN CELL VOLUME 71.4 FL (80.0-100.0); MEAN CORPUSCULAR HGB CONC 30.7 % (32.0-36.0); PLATELET COUNT 155 TH/MM3 (150-450); RED BLOOD COUNT 3.49 MIL/MM3 (4.50-5.90); RED CELL DISTRIBUTION WIDTH 20.4 % (11.6-17.2); REVIEW FLAG FINAL; WHITE BLOOD COUNT 6.3 TH/MM3 (4.0-11.0)
[2017-03-22 20:49] LABS: BICARBONATE 27.5 MEQ/L (21.0-32.0); POTASSIUM 4.1 MEQ/L (3.5-5.1)
[2017-03-22] MEDS: SODIUM CHLOR 0.9% 1000 ML INJ 1,000 ML IV SCH (21:12)
[2017-03-23] VITALS (9 sets, daily range): BP systolic 101–125; BP diastolic 59–68; PULSE 97–115; RESP 17–19; TEMP 96–100.5; O2SAT 94–100
[2017-03-23] MEDS: ACETAMINOPHEN 650 MG/20.3 ML UDC TUBE PRN (00:33)
[2017-03-23] MEDS: HYOSCYAMINE 0.125 MG TAB G-TUBE SCH ×3 (05:46→21:21)
[2017-03-23] MEDS: ACETIC ACID 0.25% SOLN 1000 ML IRR BTL IRRIGATION SCH ×3 (05:46→21:23)
[2017-03-23 07:06] LABS: C. DIFF EPI 027 PRESUMPTIVE NEGATIVE (NEGATIVE)
[2017-03-23 07:22] LABS: AUTOMATED NEUTROPHIL # 4.6 TH/MM3 (1.8-7.7); BASOPHIL # 0.1 TH/MM3 (0-0.2); EOSINOPHIL # 0.1 TH/MM3 (0-0.4); EOSINOPHIL % 1.3 % (0.0-4.0); HEMATOCRIT 25.4 % (39.0-51.0); HEMO FLAGS DIFF FINAL; LYMPH % 16.3 % (9.0-44.0); MEAN CELL VOLUME 71.4 FL (80.0-100.0); MEAN CORPUSCULAR HEMOGLOBIN 21.9 PG (27.0-34.0); MEAN CORPUSCULAR HGB CONC 30.7 % (32.0-36.0); MONO % 5.4 % (0.0-8.0); PLATELET COUNT 137 TH/MM3 (150-450); RED BLOOD COUNT 3.56 MIL/MM3 (4.50-5.90); RED CELL DISTRIBUTION WIDTH 20.5 % (11.6-17.2)
[2017-03-23 07:25] LABS: INTERNATIONAL NORMALIZED RATIO 2.5 RATIO; PROTHROMBIN TIME - PATIENT 29.2 SEC (9.8-11.6)
[2017-03-23 07:46] LABS: ANION GAP 8 MEQ/L (5-15); AST (GOT) 77 U/L (15-37); BLOOD UREA NITROGEN 19 MG/DL (7-18); CHLORIDE 100 MEQ/L (98-107); GLOMERULAR FILTRATION RATE 65 ML/MIN (>89); MAGNESIUM 2.2 MG/DL (1.5-2.5); POTASSIUM 3.8 MEQ/L (3.5-5.1); SODIUM (NA) 134 MEQ/L (136-145)
[2017-03-23 07:48] LABS: ALT (GPT) 13 U/L (12-78)
[2017-03-23 07:49] LABS: ALKALINE PHOSPHATASE 114 U/L (45-117); TOTAL BILIRUBIN ADULT 0.2 MG/DL (0.2-1.0)
[2017-03-23] MEDS: FERROUS SULFATE 300 MG /5ML UDC PO SCH (08:14)
[2017-03-23] MEDS: LANSOPRAZOLE SOLUTAB 30 MG TAB NG SCH ×2 (08:14→21:21)
[2017-03-23] MEDS: ASCORBIC ACID 500 MG TAB PO SCH (08:14)
[2017-03-23] MEDS: ASPIRIN 325 MG TAB TUBE SCH (08:14)
[2017-03-23] MEDS: levETIRAcetam 500 MG/5 ML UDC TUBE SCH ×2 (08:14→21:23)
[2017-03-23] MEDS: SODIUM CHLORIDE 0.65% NASAL SPRAY 45 ML BTL NASAL SCH ×2 (08:15→21:00)
[2017-03-23] MEDS: SODIUM CHLOR 0.9% 1000 ML INJ 1,000 ML IV SCH ×2 (08:15→18:49)
[2017-03-23] MEDS: ARTIFICIAL TEARS OPTH SOLN 15 ML BTL EACH EYE SCH ×2 (08:16→21:17)
[2017-03-23] MEDS: NYSTATIN 100,000 U/GM PWD 15 GM BTL TOPICAL SCH ×2 (08:17→21:00)
[2017-03-23] MEDS: BACITRACIN TOP OINT 15 GM TUBE TOP SCH ×2 (08:18→21:00)
[2017-03-23] MEDS: DILTIAZEM HCL 30 MG TAB PEG SCH ×4 (08:19→21:22)
[2017-03-23] MEDS: BACITRACIN OINT 0.9 GM PKT TOPICAL SCH (09:00)
[2017-03-23] MEDS: SENNOSIDES SYRUP 8.8 MG/5 ML CUP PEG SCH (14:41)
--- NOTE | 2017-03-23 15:23 | HHI.PR ---
Subjective Remarks Patient had a low grade temp of 100.5 last night Patient with improved urine output as per patient's mom who is at bedside patient has been sweating RN reports purulent discharge from PEG insertion site Objective Vitals Vital Signs Date Time Temp Pulse Resp B/P (MAP) Pulse Ox O2 Delivery O2 Flow Rate FiO2 03/23/17 12:00 96.7 104 18 101/59 (73) 97 03/23/17 08:16 95 T-piece 5.00 28 03/23/17 08:16 95 T-piece 5.00 28 03/23/17 08:00 96.0 97 17 117/60 (79) 96 03/23/17 02:30 97.7 03/23/17 00:12 100.5 115 18 125/67 (86) 94 03/22/17 20:00 96.0 112 19 113/71 (85) 96 03/22/17 18:51 106 99/56 (70) 03/22/17 17:56 100 T-piece 6.00 28 03/22/17 17:55 100 T-piece 6.00 28 I/O 03/22/17 03/22/17 03/22/17 03/23/17 03/23/17 03/23/17 07:00 15:00 23:00 07:00 15:00 23:00 Intake Total 0 ml 756 ml 0 ml 930 ml Output Total 500 ml 350 ml 400 ml Balance -500 ml 406 ml -400 ml 930 ml Intake Oral 0 ml 0 ml 0 ml IV Total 930 ml Tube Feeding 756 ml Output Urine Total 500 ml 350 ml 400 ml # Bowel Movements 1 1 1 Result Diagram: 03/23/17 0603/23/17 0605 Imaging Last Impressions Chest X-Ray 03/16/17 0000 Signed Impressions: Service Date/Time: Thursday, March 16, 2017 15:18 - CONCLUSION: 1. Mild perihilar infiltrates. 2. Tracheostomy tube remains in good position 4 cm above the geno Eduardo Valenzuela MD Brain MRI 03/14/17 0000 Signed Impressions: Service Date/Time: Tuesday, March 14, 2017 12:41 - CONCLUSION: The signal abnormality and enhancement within the bilateral occipital lobes and colin have decreased since the prior examinations. No new abnormality is identified. There is no new enhancing area or signs of a recent ischemia. Glen Gordon MD Chest CT 03/10/17 0000 Signed Impressions: Service Date/Time: Friday, March 10, 2017 21:00 - CONCLUSION: 1. Periaortic soft tissue along the proximal descending thoracic aorta not previously seen. This represents either lymphomatous involvement or adjacent consolidated airspace disease. 2. Mild bilateral airspace disease 3. No evidence of significant lymphadenopathy involving the mediastinum, hilar regions, axillas or supraclavicular lore chain. 4. Tracheostomy tube in place. Ernesto Kulkarni MD Abdomen/Pelvis CT 02/27/17 0000 Signed Impressions: Service Date/Time: February 02:24 - CONCLUSION: 1. Abdominal aortic aneurysm. 2. Bladder mass is noted on the right posteriorly with apparent extravesical extension and clot formation. 3. Left renal cyst. 4. Left lower lobe atelectasis. 5. Large sacral decubitus ulcer with bony destruction and sclerosis of the sacrum mid to left lateral portion in the region of S3 and inferiorly which would suggest chronic osteomyelitis in the appropriate clinical setting. Rajan Granados MD Soft Tissue Ultrasound 02/26/17 0000 Signed Impressions: Service Date/Time: Sunday, February 26, 2017 12:52 - CONCLUSION: 1. Just inferior to the G-tube in the left abdomen, there is a superficial 3.8 x 2.9 0.9 cm complex fluid collection in the subcutaneous tissues. 2. Findings are nonspecific. This could represent a small seroma or abscess. Would consider CT scan of the abdomen without contrast for further evaluation to determine if there is intraperitoneal extension. Bobby Gray MD Gastrostomy Tube Placement 02/25/17 0000 Signed Impressions: Service Date/Time: Saturday, February 25, 2017 14:19 - CONCLUSION: Uncomplicated exchange of gastroenteric feeding tube for gastrostomy tube as above. Positioning confirmed. The tube can be used immediately. Glen Zamora MD Tube Change 02/14/17 0000 Signed Impressions: Service Date/Time: Tuesday, February 14, 2017 00:00 - CONCLUSION: Uncomplicated gastrojejunostomy tube exchange as above. Scott Griffin MD Head CT 01/09/17 0000 Signed Impressions: Service Date/Time: December 17:43 - CONCLUSION: 1. No acute hemorrhage or mass effect. 2. 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 3. Atrophy. Gerald Mukherjee MD CT Angiography 01/09/17 0000 Signed Impressions: Service Date/Time: December 17:49 - CONCLUSION: 1. No evidence of pulmonary emboli. 2. Patchy consolidation in both posterior lower lobes right greater than left. This could represent pneumonia. 3. 2 small noncalcified pulmonary nodules which are nonspecific finding. Short-term CT followup is recommended beginning in 6 months with a noncontrast outpatient CT. Gerald Mukherjee MD Tube Check 12/04/16 0000 Signed Impressions: Service Date/Time: Sunday, December 04, 2016 17:58 - CONCLUSION: Uncomplicated tube injection as above. the tube is in good position and functions normally. Moises Ramírez MD Abdomen X-Ray 08/31/16 0000 Signed Impressions: Service Date/Time: Wednesday, August 31, 2016 16:36 - CONCLUSION: 1. No acute findings. Mild constipation. Durga Dotson MD Head Magnetic Resonance Angiography 03/05/16 0000 Signed Impressions: Service Date/Time: Saturday, March 05, 2016 09:26 - CONCLUSION: Persistent high-grade subtotal occlusive stenotic lesions in the distal right vertebral artery and proximal basilar artery with significant improvement in flow and recanalization following initial presentation of thrombosis. Stable interstitial circulation without significant stenosis. Ernesto Kulkarni MD Neck Magnetic Resonance Angiography 12/22/15 1445 Signed Impressions: Service Date/Time: Tuesday, December 22, 2015 09:22 - CONCLUSION: Variant origin of the left vertebral artery from the aortic arch. No evidence of carotid stenosis. Glen Zamora MD Head/Brain Mag Res Venography 12/22/15 0000 Signed Impressions: Service Date/Time: Tuesday, December 22, 2015 09:22 - CONCLUSION: Normal MRV. Jonel Jones Jr., MD Objective Remarks GENERAL: Non-verbal, lethargic, opens eyes to voice and command, tracking people in room. Not in acute distress. SKIN: Warm and dry. HEENT: Normocephalic. Pupils nonicteric. Nose without bleeding. Airway patent. NECK: Supple, trachea midline. T-tube in place, site clean, dry, intact. No JVD. CARDIOVASCULAR: Regular rate and rhythm. No murmur appreciated. RESPIRATORY: Breath sounds equal bilaterally. No accessory muscle use. Trach tube in place. Bedside monitor indicated oxygen saturation was 99%. GASTROINTESTINAL: Abdomen soft, non-tender, nondistended. GJ tube noted, area around insertion was clean, dry, dressing intact. J tube clogged. MUSCULOSKELETAL: No cyanosis, or edema. PSYCHIATRIC: Pt non-verbal. Procedures 07/22/2016 Wide excision of sacral skin wound, biopsy of the cavity lining and debridement. PEG removal and Gj tube placement 07/29/16 VAC changes- M-W-F 10/23/16, 11/18, 12/31- GJ tube replacement 01/02/16 PEG placement 01/02/16 tracheostomy 02/25/17 PEG replacement 03/03/17 Cystoscopy and palliative transurethral resection of bladder tumor greater than 5cm originating from the right bladder wall Medications and IVs Current Medications Medications (Trade) Dose Ordered Sig/Junior Route Start Time Stop Time Status Last Admin (NS Flush) 2 ml UNSCH PRN IVF 12/21/15 06:00 09/28/16 21:18 (Keppra Liq) 500 mg Q12HR TUBE 12/27/15 21:00 03/23/17 08:14 (Tylenol 650 Mg/ 20 ml Liq) 650 mg Q6H PRN TUBE 12/30/15 15:15 03/23/17 00:33 (Mycostatin Powder) 1 applic Q12HR TOPICAL 01/08/16 21:00 03/23/17 08:17 (Pill Splitter) 1 ea UNSCH PRN OTHER 01/14/16 08:30 (Acetic Acid 0.25% Irr Btl) 10 ml Q8HR IRRIGATION 02/05/16 16:00 03/23/17 05:46 (Paxil Liq) 20 mg DAILY@1900 PEG 03/12/16 19:00 Future hold 03/22/17 18:47 (Zofran Inj) 4 mg Q6HR PRN IV PUSH 04/14/16 19:45 03/16/17 16:00 (Xopenex Neb) 0.63 mg Q4HR NEB PRN NEB 05/05/16 12:00 03/06/17 10:45 (Aspirin) 325 mg DAILY TUBE 05/27/16 11:40 Future hold 03/23/17 08:14 (Baciguent Oint) 1 applic BID TOP 07/20/16 10:00 03/23/17 08:18 ([place]) 1 spray BID NASAL 08/01/16 21:00 03/23/17 08:15 (Tears Naturale Opth Soln) 1 drop BID EACH EYE 09/05/16 21:00 03/23/17 08:16 (Morphine Inj) 1 mg Q24H PRN IV PUSH 09/17/16 14:30 10/22/16 02:00 (Dulcolax Supp) 10 mg DAILY PRN RECTAL 09/26/16 15:30 12/08/16 09:17 (Tylenol - Codeine 120-12 Liq) 5 ml Q4H PRN G-TUBE 12/27/16 15:30 03/19/17 18:10 (Imodium Liq) 2 mg Q6H PRN PEG 12/27/16 15:30 03/18/17 20:25 (Milk Of Magnesia Liq) 30 ml DAILY PRN PEG 12/27/16 15:30 02/11/17 08:46 (Milk Of Magnesia Liq) 30 ml DAILY PEG 12/28/16 09:00 Future Hold 01/19/17 08:44 (Senna Liq) 8.8 mg DAILY@1600 PEG 12/27/16 16:00 03/20/17 18:02 (Lactulose Liq) 30 ml DAILY PRN PEG 12/27/16 15:30 (Cardizem) 30 mg QID PEG 01/09/17 18:00 03/23/17 08:19 (D50w (Vial) Inj) 50 ml UNSCH PRN IV 01/09/17 16:00 (Glucagon Inj) 1 mg UNSCH PRN OTHER 01/09/17 16:00 (Prevacid Odt) 30 mg BID NG 01/26/17 21:00 03/23/17 08:14 (Ferrous Sulfate Liq) 300 mg DAILY PO 02/14/17 09:00 03/23/17 08:14 (Vitamin C) 1,000 mg DAILY PO 02/14/17 09:00 03/23/17 08:14 (Bacitracin Oint Packet) 0.9 gm DAILY TOPICAL 02/25/17 09:00 03/21/17 09:00 (Levsin) 0.25 mg Q8HR G-TUBE 03/18/17 22:00 03/23/17 05:46 Pharmacy Profile Note 0 ml @ 0 mls/hr UNSCH OTHER 03/19/17 15:30 Sodium Chloride 1,000 ml @ 84 mls/hr [id number] IV 03/22/17 19:00 03/23/17 08:15 (Coumadin) 4 mg DAILY@1600 PO 03/23/17 16:00 Urinary Catheter: No Date of Insertion: Mar 03, 2017 Vascular Central Line Catheter: No A/P Problem List: (1) CVA (cerebral vascular accident) ICD Code: I63.9 - Cerebral infarction, unspecified Status: Acute (2) A-fib ICD Code: I48.91 - Unspecified atrial fibrillation Status: Chronic (3) DM (diabetes mellitus) ICD Code: E11.9 - Type 2 diabetes mellitus without complications Status: Chronic Assessment and Plan 60 year-old male with past medical history of paroxysmal A. fib, hypertension, stage III non-Hodgkin's lymphoma status post chemotherapy who came into the hospital with altered mental status. 1. PEG tube site cellulitis -ID was consulted - wound culture positive for Kleb pneumo sensitive to Levaquin. - BCX negative - SP treatment with IV Levaquin x 5 days however there is still purulence observed. Continue wound care and will reculture site if fever. - A per Wound care recommendations. Cleanse around PEG tube site with normal saline and apply drain sponge around tube secure tube and drain sponge with medifix tape change as needed. Please use skin prep before applying adhesives to skin. Continue. 03/23 purulent discharge observed from PEG site - re ordered wound culture and will reconsult ID. 2. 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 - CT of the abdomen showed bladder mass right posteriorly with apparent extravesical extension and clot formation. - Urology spoke with family member, daughter, states that he's not recommending biopsy of the bladder mass. However daughter insisted on biopsy. Patient s/p cystoscopy and palliative transurethral resection of bladder tumor greater than 5 cm originating from right bladder wall performed by Dr. Sewell . 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 - Oncology following - appreciate their assistance. Family requesting aggressive therapy. CT chest negative for malignancy. MRI completed. Patient is not a candidate for chemotherapy. Family has decided on palliative XRT treatment and would like it to start MIGEL. Consult placed for radiation oncology. - Palliative care following, appreciate their assistance. - Continue to flush lopez catheter PRN. Monitor for recurrence of hematuria 3. 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 Intermittently tracks with eyes. - Continue Keppra 500mg BID for seizure prophylaxis. Keppra level 17.8. - PT/OT signed off as patient is unable to participate. - On Paxil 20 by mouth daily for depression. - On acetaminophen with codeine for pain scale of 2-10. - Morphine 1 mg every 24 hours when necessary for dressing change 4. Chronic respiratory failure secondary to CVA - Status post tracheostomy. Continue pulmonary toilet and bronchodilators as needed. Continue trach care, suctioning. Increased secretions improved with scheduled Levsin. Decreased dosing of scheduled Levsin to q8h. - Trach changed to size #6 XLT on 01/09 - Duo nebs every 4 hours while awake - Pulmonary currently following, appreciate assistance. 5. Atrial fibrillation, controlled 6. Hypertension controlled. 7. Dyslipidemia - Continue rate control with Cardizem and metoprolol. - [id number] score 4 - Echocardiogram in November 2015 shows preserved ejection fraction. - Coumadin discontinued secondary to bleeding from sacral wound. No active bleeding noted. Resume Coumadin 5mg daily. Pharmacy to dose. Monitor INR, currently subtherapeutic. - Continue aspirin 8. History of non-Hodgkin's lymphoma - Status post brain biopsy on December 13 by neurosurgery. Pathology consistent with acute infarct without evidence of lymphoma. 9 Diabetes mellitus Type 2 - Hemoglobin A1c is 5.5. - Fingersticks have been stable and were DC'd 02/01/17 10. Decubitus ulcer stage IV - Status post wide excision of sacral skin and biopsy of the cavity lining with debridement on 07/22/16. - Continue wound care, twice-daily dressing changes. Wound care recommendations last updated 12/12/16. Continue pressure relief measures including turning and positioning. - Patient's family has declined a diverting colostomy. Previous Wound culture growing Klebsiella and Enterococcus Faecalis. Previously on Augmentin. - Wound care last saw patient on 02/25/17, no new recommendations continue packing with Betadine moistened rolled Janis and covered with ABD pad and paper tape to secure. - Continue to monitor. Continue pressure-relief. - Morphine 1 mg every 24 hours when necessary for dressing change - confirmed with nursing staff continued dressing changes BID 11. Protein calorie malnutrition 12. Gastroesophageal reflux disease 13. Gastric ulcer, reflux esophagitis 14. Diarrhea, negative for C. difficile. - EGD on 07/30/16 showed gastric ulcers. Continue on Prevacid 30 mg Q12. - G/J tube clogged, IR consulted to evaluate. Replaced on 02/25/17 - TF held 03/16 due to emesis. No recurrence. TF resumed yesterday - patient tolerating. Premium Auditor consulted to assist with rate/needs. Per their recommendations, Rec increasing TF'ing 10ml/hr Q 6hr, as tolerated, to goal rate 55ml/hr. Rec to discontinue the Ashish r/t pt has received Ashish for Rec dosing of 4-weeks to promote new tissue growth. - Continue bowel regimen with hold parameters, Lactinex and Imodium. (+)BM overnight x 1. - 03/23 patient with increased loose stools as per rn repeat C diff PCR - negative 15. Klebsiella/Pseudomonas/staph aureus HCAP 16. PSAE UTI - S/p Cefepime. Monitor for signs of infections. - strep pneumonia and Legionella urinary Ag is negative - C-diff PCR negative on 01/13 - 01/09 BC : Staph Epi, Urine cx: Pseudomonas, Sputum cx: Pseudomonas, kleb, Staph. - Patient was pancultured on 01/19 (Blood, sputum, urine) NGTD in urine and blood. Sputum + for pseudomonas. Likely colonization. 17. Hyponatremia - mild - appears stable - monitor as indicated 18. Anemia - appears stable - continue with iron supplementation and Vit C 19. Oliguria - Likely due to dehydration. - Improving with IV fluids and increased free water via PEG. DVT prophylaxis: Continue SCDs, discontinue heparin subcutaneously seems INR is therapeutic. Discussed with Nurse Miss Landin and his Mother in the room, all questions answered to the best of my abilities. will increase free water to 300 ml every 6 hrs check stool for c diff pcr due to loose stools check labs monitor urine output Discharge Planning No cleared - patient with purulence on peg site and low grade fevers Problem Qualifiers (1) CVA (cerebral vascular accident): (2) DM (diabetes mellitus): Renny Kamara MD Mar 23, 2017 15:22
[2017-03-23] MEDS: PARoxetine HCL SUSP 20 MG/10 ML UDC PEG SCH (18:46)
[2017-03-24] VITALS (11 sets, daily range): BP systolic 90–122; BP diastolic 52–76; PULSE 78–116; RESP 17–20; TEMP 95.6–99.7; O2SAT 95–100
[2017-03-24] MEDS: LOPERAMIDE HCL SOLN 2 MG/10 ML UDC PEG PRN (01:16)
[2017-03-24] MEDS: HYOSCYAMINE 0.125 MG TAB G-TUBE SCH ×3 (05:51→20:39)
[2017-03-24] MEDS: ACETIC ACID 0.25% SOLN 1000 ML IRR BTL IRRIGATION SCH ×3 (05:52→20:39)
[2017-03-24] MEDS: SODIUM CHLOR 0.9% 1000 ML INJ 1,000 ML IV SCH (06:18)
[2017-03-24 06:21] LABS: AUTOMATED NEUTROPHIL # 4.2 TH/MM3 (1.8-7.7); BASOPHIL % 0.6 % (0.0-2.0); EOSINOPHIL # 0.1 TH/MM3 (0-0.4); EOSINOPHIL % 1.8 % (0.0-4.0); HEMATOCRIT 21.7 % (39.0-51.0); LYMPH % 14.7 % (9.0-44.0); LYMPHOCYTE # 0.8 TH/MM3 (1.0-4.8); MEAN CELL VOLUME 71.1 FL (80.0-100.0); MEAN CORPUSCULAR HEMOGLOBIN 22.2 PG (27.0-34.0); MEAN CORPUSCULAR HGB CONC 31.3 % (32.0-36.0); MONO % 4.6 % (0.0-8.0); NEUT % 78.3 % (16.0-70.0); PLATELET COUNT 115 TH/MM3 (150-450); RED BLOOD COUNT 3.06 MIL/MM3 (4.50-5.90); RED CELL DISTRIBUTION WIDTH 20.4 % (11.6-17.2); WHITE BLOOD COUNT 5.4 TH/MM3 (4.0-11.0)
[2017-03-24 06:26] LABS: INTERNATIONAL NORMALIZED RATIO 3.3 RATIO; PROTHROMBIN TIME - PATIENT 38.1 SEC (9.8-11.6)
[2017-03-24 06:40] LABS: ANION GAP 8 MEQ/L (5-15); AST (GOT) 60 U/L (15-37); BICARBONATE 24.3 MEQ/L (21.0-32.0); BLOOD UREA NITROGEN 15 MG/DL (7-18); CHLORIDE 103 MEQ/L (98-107); GLOMERULAR FILTRATION RATE 77 ML/MIN (>89); POTASSIUM 4.2 MEQ/L (3.5-5.1); SODIUM (NA) 135 MEQ/L (136-145)
[2017-03-24 06:44] LABS: ALKALINE PHOSPHATASE 96 U/L (45-117); ALT (GPT) 10 U/L (12-78); HEMO FLAGS DIFF FINAL; TOTAL BILIRUBIN ADULT 0.2 MG/DL (0.2-1.0)
[2017-03-24] MEDS: ARTIFICIAL TEARS OPTH SOLN 15 ML BTL EACH EYE SCH ×2 (09:00→20:36)
[2017-03-24] MEDS: NYSTATIN 100,000 U/GM PWD 15 GM BTL TOPICAL SCH ×2 (09:00→20:38)
[2017-03-24] MEDS: BACITRACIN OINT 0.9 GM PKT TOPICAL SCH (09:00)
[2017-03-24] MEDS: BACITRACIN TOP OINT 15 GM TUBE TOP SCH ×2 (09:00→20:37)
[2017-03-24] MEDS: SODIUM CHLORIDE 0.65% NASAL SPRAY 45 ML BTL NASAL SCH ×2 (09:00→20:36)
[2017-03-24] MEDS: DILTIAZEM HCL 30 MG TAB PEG SCH ×4 (09:57→20:39)
[2017-03-24] MEDS: ASPIRIN 325 MG TAB TUBE SCH (09:57)
[2017-03-24] MEDS: LANSOPRAZOLE SOLUTAB 30 MG TAB NG SCH ×2 (09:57→20:36)
[2017-03-24] MEDS: levETIRAcetam 500 MG/5 ML UDC TUBE SCH ×2 (09:57→20:38)
[2017-03-24] MEDS: FERROUS SULFATE 300 MG /5ML UDC PO SCH (09:57)
[2017-03-24] MEDS: ASCORBIC ACID 500 MG TAB PO SCH (09:57)
--- NOTE | 2017-03-24 13:12 | RADRPT ---
EXAM DATE/TIME: 03/24/2017 12:37 [facility] COMPARISON: CHEST SINGLE AP, March 16, 2017, 15:18. INDICATIONS : Fever. MEDICAL HISTORY : Hypercholesterolemia. Hypertension. Cerebrovascular accident. Atrial fibrillation.Diabetes. Depressio n. Anxiety. Carcinoma, lymphoma. MRSA. SURGICAL HISTORY : None. ENCOUNTER: Initial ACUITY: 1 day PAIN SCORE: Non-responsive. LOCATION: Bilateral chest FINDINGS: Trach tube is in good position. Minimal increase in consolidative changes left base. Right lung rec ently clear. The heart and pulmonary vascularity are normal. CONCLUSION: Minimal increase consolidation left base. No significant failure. Octavio Ramírez MD FACR on March 24, 2017 at 13:10 Board Certified Radiologist. This report was verified electronically.
--- NOTE | 2017-03-24 13:19 | HHI.PR ---
Subjective Remarks ass low grade temp , hgb 6.8 OPENS EYES NO DISTRESS o2 sat 95% small cell CA of urinary bladder Objective Vital Signs Date Time Temp Pulse Resp B/P (MAP) Pulse Ox O2 Delivery O2 Flow Rate FiO2 03/24/17 12:00 97.6 102 18 103/68 (80) 99 03/24/17 10:28 99.7 110 19 116/71 (86) 98 03/24/17 10:28 99.7 110 19 116/71 98 03/24/17 10:14 99.7 112 19 118/68 98 03/24/17 10:14 99.7 112 19 118/68 (85) 97 Manual Cuff/Auscultation 03/24/17 08:00 97.9 116 19 116/76 (89) 98 03/24/17 00:00 99.3 112 19 115/61 (79) 98 03/23/17 23:27 Trach Collar 6.00 28 03/23/17 20:00 97.9 100 19 117/63 (81) 100 03/23/17 18:07 98 T-piece 6.00 03/23/17 18:05 98 T-piece 6.00 28 03/23/17 16:00 96.3 107 18 112/68 (83) 98 I/O 03/23/17 03/23/17 03/23/17 03/24/17 03/24/17 03/24/17 07:00 15:00 23:00 07:00 15:00 23:00 Intake Total 0 ml 930 ml 1190 ml Output Total 400 ml 515 ml Balance -400 ml 930 ml 675 ml Intake Oral 0 ml 240 ml IV Total 930 ml 950 ml Output Urine Total 400 ml 515 ml # Voids 1 # Bowel Movements 1 1 1 Result Diagram: 03/24/17 0555 03/24/17 0555 Procedures 07/22/2016 Wide excision of sacral skin wound, biopsy of the cavity lining and debridement. PEG removal and Gj tube placement 07/29/16 VAC changes- M-W-F 10/23/16, 11/18, 12/31- GJ tube replacement 01/02/16 PEG placement 01/02/16 tracheostomy 02/25/17 PEG replacement 03/03/17 Cystoscopy and palliative transurethral resection of bladder tumor greater than 5cm originating from the right bladder wall Objective Remarks GENERAL: SKIN: Warm and dry. HEAD: Atraumatic. Normocephalic. EYES: Pupils equal and round. No scleral icterus. No injection or drainage. ENT: No nasal bleeding or discharge. Mucous membranes pink and moist. NECK: Trachea midline. No JVD. CARDIOVASCULAR: Regular rate and rhythm. RESPIRATORY: No accessory muscle use. Clear to auscultation. Breath sounds equal bilaterally. GASTROINTESTINAL: Abdomen soft, non-tender, nondistended. Hepatic and splenic margins not palpable. MUSCULOSKELETAL: Extremities without clubbing, cyanosis, or edema. No obvious deformities. NEUROLOGICAL: Awake and alert. No obvious cranial nerve deficits. Motor grossly within normal limits. Five out of 5 muscle strength in the arms and legs. Normal speech. PSYCHIATRIC: Appropriate mood and affect; insight and judgment normal. Laboratory Tests Test 01/05/17 01/06/17 08:35 08:41 Red Blood Count 4.43 MIL/MM3 (4.50-5.90) Hemoglobin 9.9 GM/DL (13.0-17.0) Hematocrit 32.0 % (39.0-51.0) Mean Corpuscular Volume 72.1 FL (80.0-100.0) Mean Corpuscular Hemoglobin 22.3 PG (27.0-34.0) Mean Corpuscular Hemoglobin 30.9 % Concent (32.0-36.0) Red Cell Distribution Width 19.9 % (11.6-17.2) Sodium Level 134 MEQ/L 133 MEQ/L (136-145) (136-145) Random Glucose 136 MG/DL 132 MG/DL (74-106) (74-106) Creatinine 0.59 MG/DL (0.60-1.30) GENERAL: SKIN: Warm and dry. HEAD: Atraumatic. Normocephalic. EYES: Pupils equal and round. No scleral icterus. No injection or drainage. ENT: No nasal bleeding or discharge. Mucous membranes pink and moist. NECK: Trachea midline. No JVD. TRACH. [place] CARDIOVASCULAR: Regular rate and rhythm. RESPIRATORY: No accessory muscle use. Clear to auscultation. Breath sounds equal bilaterally. GASTROINTESTINAL: Abdomen soft, non-tender, nondistended. Hepatic and splenic margins not palpable. MUSCULOSKELETAL: Extremities without clubbing, cyanosis, or edema. No obvious deformities. NEUROLOGICAL: Awake and alert. No obvious cranial nerve deficits. Motor grossly within normal limits. Five out of 5 muscle strength in the arms and legs. Normal speech. PSYCHIATRIC: Appropriate mood and affect; insight and judgment normal. Assessment and Plan Assessment and Plan impression respiratory failure CVA S/P TRACHEOSTOMY SMALL CELL CA OF THE URINARY BLADDER PLAN on antibiotics receiving packed red cells O2 NEEDED PULM. TOILET relieved RT yesterday Brandon Taylor MD Mar 24, 2017 13:19
[2017-03-24] MEDS: PIPERACIL-TAZO 4.5 GM PREMIX 100 ML IV SCH ×2 (14:07→20:39)
--- NOTE | 2017-03-24 15:04 | HHI.PR ---
Subjective Remarks Deferred entry - patient seen at 12:40 am Mother is at bedside. Patient had had low grade fevers overnight still having loose stools no reported melena or hematochezia hemoglobin dropped to 6.8 Objective Vitals Vital Signs Date Time Temp Pulse Resp B/P (MAP) Pulse Ox O2 Delivery O2 Flow Rate FiO2 03/24/17 12:00 97.6 102 18 103/68 (80) 99 03/24/17 10:28 99.7 110 19 116/71 (86) 98 03/24/17 10:28 99.7 110 19 116/71 98 03/24/17 10:14 99.7 112 19 118/68 98 03/24/17 10:14 99.7 112 19 118/68 (85) 97 Manual Cuff/Auscultation 03/24/17 09:20 99 Trach Collar 5.00 28 03/24/17 09:10 97 T-piece 7.00 28 03/24/17 08:00 97.9 116 19 116/76 (89) 98 03/24/17 00:00 99.3 112 19 115/61 (79) 98 03/23/17 23:27 Trach Collar 6.00 28 03/23/17 20:00 97.9 100 19 117/63 (81) 100 03/23/17 18:07 98 T-piece 6.00 03/23/17 18:05 98 T-piece 6.00 28 03/23/17 16:00 96.3 107 18 112/68 (83) 98 I/O 03/23/17 03/23/17 03/23/17 03/24/17 03/24/17 03/24/17 06:59 14:59 22:59 06:59 14:59 22:59 Intake Total 0 ml 930 ml 1190 ml 401 ml Output Total 400 ml 515 ml Balance -400 ml 930 ml 675 ml 401 ml Intake Oral 0 ml 240 ml IV Total 930 ml 950 ml Packed Cells 391 ml Blood Product IV Normal Saline Flush 10 ml Output Urine Total 400 ml 515 ml # Voids 1 # Bowel Movements 1 1 1 Result Diagram: 03/24/17 0555 03/24/17 0555 Imaging Last Impressions Chest X-Ray 03/24/17 0000 Signed Impressions: Service Date/Time: Friday, March 24, 2017 12:37 - CONCLUSION: Minimal increase consolidation left base. No significant failure. Octavio Ramírez MD FACR Brain MRI 03/14/17 0000 Signed Impressions: Service Date/Time: Tuesday, March 14, 2017 12:41 - CONCLUSION: The signal abnormality and enhancement within the bilateral occipital lobes and colin have decreased since the prior examinations. No new abnormality is identified. There is no new enhancing area or signs of a recent ischemia. Glen Gordon MD Chest CT 03/10/17 0000 Signed Impressions: Service Date/Time: Friday, March 10, 2017 21:00 - CONCLUSION: 1. Periaortic soft tissue along the proximal descending thoracic aorta not previously seen. This represents either lymphomatous involvement or adjacent consolidated airspace disease. 2. Mild bilateral airspace disease 3. No evidence of significant lymphadenopathy involving the mediastinum, hilar regions, axillas or supraclavicular lore chain. 4. Tracheostomy tube in place. Ernesto Kulkarni MD Abdomen/Pelvis CT 02/27/17 0000 Signed Impressions: Service Date/Time: February 02:24 - CONCLUSION: 1. Abdominal aortic aneurysm. 2. Bladder mass is noted on the right posteriorly with apparent extravesical extension and clot formation. 3. Left renal cyst. 4. Left lower lobe atelectasis. 5. Large sacral decubitus ulcer with bony destruction and sclerosis of the sacrum mid to left lateral portion in the region of S3 and inferiorly which would suggest chronic osteomyelitis in the appropriate clinical setting. Rajan Granados MD Soft Tissue Ultrasound 02/26/17 0000 Signed Impressions: Service Date/Time: Sunday, February 26, 2017 12:52 - CONCLUSION: 1. Just inferior to the G-tube in the left abdomen, there is a superficial 3.8 x 2.9 0.9 cm complex fluid collection in the subcutaneous tissues. 2. Findings are nonspecific. This could represent a small seroma or abscess. Would consider CT scan of the abdomen without contrast for further evaluation to determine if there is intraperitoneal extension. Bobby Gray MD Gastrostomy Tube Placement 02/25/17 0000 Signed Impressions: Service Date/Time: Saturday, February 25, 2017 14:19 - CONCLUSION: Uncomplicated exchange of gastroenteric feeding tube for gastrostomy tube as above. Positioning confirmed. The tube can be used immediately. Glen Zamora MD Tube Change 02/14/17 0000 Signed Impressions: Service Date/Time: Tuesday, February 14, 2017 00:00 - CONCLUSION: Uncomplicated gastrojejunostomy tube exchange as above. Scott Griffin MD Head CT 01/09/17 0000 Signed Impressions: Service Date/Time: December 17:43 - CONCLUSION: 1. No acute hemorrhage or mass effect. 2. 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 3. Atrophy. Gerald Mukherjee MD CT Angiography 01/09/17 0000 Signed Impressions: Service Date/Time: December 17:49 - CONCLUSION: 1. No evidence of pulmonary emboli. 2. Patchy consolidation in both posterior lower lobes right greater than left. This could represent pneumonia. 3. 2 small noncalcified pulmonary nodules which are nonspecific finding. Short-term CT followup is recommended beginning in 6 months with a noncontrast outpatient CT. Gerald Mukherjee MD Tube Check 12/04/16 0000 Signed Impressions: Service Date/Time: Sunday, December 04, 2016 17:58 - CONCLUSION: Uncomplicated tube injection as above. the tube is in good position and functions normally. Moises Ramírez MD Abdomen X-Ray 08/31/16 0000 Signed Impressions: Service Date/Time: Wednesday, August 31, 2016 16:36 - CONCLUSION: 1. No acute findings. Mild constipation. Durga Dotson MD Head Magnetic Resonance Angiography 03/05/16 0000 Signed Impressions: Service Date/Time: Saturday, March 05, 2016 09:26 - CONCLUSION: Persistent high-grade subtotal occlusive stenotic lesions in the distal right vertebral artery and proximal basilar artery with significant improvement in flow and recanalization following initial presentation of thrombosis. Stable interstitial circulation without significant stenosis. Ernesto Kulkarni MD Neck Magnetic Resonance Angiography 12/22/15 1445 Signed Impressions: Service Date/Time: Tuesday, December 22, 2015 09:22 - CONCLUSION: Variant origin of the left vertebral artery from the aortic arch. No evidence of carotid stenosis. Glen Zamora MD Head/Brain Mag Res Venography 12/22/15 0000 Signed Impressions: Service Date/Time: Tuesday, December 22, 2015 09:22 - CONCLUSION: Normal MRV. Jonel Jones Jr., MD Objective Remarks GENERAL: Non-verbal, lethargic, opens eyes to voice and command, tracking people in room. Not in acute distress. SKIN: Warm and dry. HEENT: Normocephalic. Pupils nonicteric. Nose without bleeding. Airway patent. NECK: Supple, trachea midline. T-tube in place, site clean, dry, intact. No JVD. CARDIOVASCULAR: Regular rate and rhythm. No murmur appreciated. RESPIRATORY: Breath sounds equal bilaterally. No accessory muscle use. Trach tube in place. Bedside monitor indicated oxygen saturation was 99%. Bilateral rhonchi. GASTROINTESTINAL: Abdomen soft, non-tender, nondistended. GJ tube noted, area around insertion was clean, dry, dressing intact. J tube clogged. MUSCULOSKELETAL: No cyanosis, or edema. PSYCHIATRIC: Pt non-verbal. Procedures 07/22/2016 Wide excision of sacral skin wound, biopsy of the cavity lining and debridement. PEG removal and Gj tube placement 07/29/16 VAC changes- M-W-F 10/23/16, 11/18, 12/31- GJ tube replacement 01/02/16 PEG placement 01/02/16 tracheostomy 02/25/17 PEG replacement 03/03/17 Cystoscopy and palliative transurethral resection of bladder tumor greater than 5cm originating from the right bladder wall Medications and IVs Current Medications Medications (Trade) Dose Ordered Sig/Junior Route Start Time Stop Time Status Last Admin (NS Flush) 2 ml UNSCH PRN IVF 12/21/15 06:00 09/28/16 21:18 (Keppra Liq) 500 mg Q12HR TUBE 12/27/15 21:00 03/24/17 09:57 (Tylenol 650 Mg/ 20 ml Liq) 650 mg Q6H PRN TUBE 12/30/15 15:15 03/23/17 00:33 (Mycostatin Powder) 1 applic Q12HR TOPICAL 01/08/16 21:00 03/24/17 09:00 (Pill Splitter) 1 ea UNSCH PRN OTHER 01/14/16 08:30 (Acetic Acid 0.25% Irr Btl) 10 ml Q8HR IRRIGATION 02/05/16 16:00 03/24/17 14:08 (Paxil Liq) 20 mg DAILY@1900 PEG 8/23/16 19:00 Future hold 03/23/17 18:46 (Zofran Inj) 4 mg Q6HR PRN IV PUSH 04/14/16 19:45 03/16/17 16:00 (Xopenex Neb) 0.63 mg Q4HR NEB PRN NEB 05/05/16 12:00 03/06/17 10:45 (Aspirin) 325 mg DAILY TUBE 05/27/16 11:40 Future hold 03/24/17 09:57 (Baciguent Oint) 1 applic BID TOP 07/20/16 10:00 03/24/17 09:00 (Hooker Angel [place]) 1 spray BID NASAL 08/01/16 21:00 03/24/17 09:00 (Tears Naturale Opth Soln) 1 drop BID EACH EYE 09/05/16 21:00 03/24/17 09:00 (Morphine Inj) 1 mg Q24H PRN IV PUSH 09/17/16 14:30 10/22/16 02:00 (Dulcolax Supp) 10 mg DAILY PRN RECTAL 09/26/16 15:30 12/08/16 09:17 (Tylenol - Codeine 120-12 Liq) 5 ml Q4H PRN G-TUBE 12/27/16 15:30 03/19/17 18:10 (Imodium Liq) 2 mg Q6H PRN PEG 12/27/16 15:30 03/24/17 01:16 (Milk Of Magnesia Liq) 30 ml DAILY PRN PEG 12/27/16 15:30 02/11/17 08:46 (Milk Of Magnesia Liq) 30 ml DAILY PEG 12/28/16 09:00 Future Hold 01/19/17 08:44 (Senna Liq) 8.8 mg DAILY@1600 PEG 12/27/16 16:00 03/20/17 18:02 (Lactulose Liq) 30 ml DAILY PRN PEG 12/27/16 15:30 (Cardizem) 30 mg QID PEG 01/09/17 18:00 03/24/17 09:57 (D50w (Vial) Inj) 50 ml UNSCH PRN IV 01/09/17 16:00 (Glucagon Inj) 1 mg UNSCH PRN OTHER 01/09/17 16:00 (Prevacid Odt) 30 mg BID NG 01/26/17 21:00 03/24/17 09:57 (Ferrous Sulfate Liq) 300 mg DAILY PO 02/14/17 09:00 03/24/17 09:57 (Vitamin C) 1,000 mg DAILY PO 02/14/17 09:00 03/24/17 09:57 (Bacitracin Oint Packet) 0.9 gm DAILY TOPICAL 02/25/17 09:00 03/24/17 09:00 (Levsin) 0.25 mg Q8HR G-TUBE 03/18/17 22:00 03/24/17 13:14 Pharmacy Profile Note 0 ml @ 0 mls/hr UNSCH OTHER 03/19/17 15:30 (Coumadin) 4 mg DAILY@1600 PO 03/23/17 16:00 03/23/17 14:38 Piperacillin Sod/ Tazobactam Sod 100 ml @ 200 mls/hr Q8H IV 03/24/17 14:00 03/24/17 14:07 Vancomycin HCl 1000 mg/Sodium Chloride 250 ml @ 250 mls/hr ONCE ONCE IV 03/24/17 15:00 03/24/17 15:59 Urinary Catheter: Yes Assessment to: Continue Lopez insert reason: Prolonged Immobilization Date of Insertion: Mar 03, 2017 A/P Problem List: (1) CVA (cerebral vascular accident) ICD Code: I63.9 - Cerebral infarction, unspecified Status: Acute (2) A-fib ICD Code: I48.91 - Unspecified atrial fibrillation Status: Chronic (3) DM (diabetes mellitus) ICD Code: E11.9 - Type 2 diabetes mellitus without complications Status: Chronic Assessment and Plan 60 year-old male with past medical history of paroxysmal A. fib, hypertension, stage III non-Hodgkin's lymphoma status post chemotherapy who came into the hospital with altered mental status. 1. PEG tube site cellulitis/Low grade fever -ID was consulted - wound culture positive for Kleb pneumo sensitive to Levaquin. - BCX negative - SP treatment with IV Levaquin x 5 days however there is still purulence observed. Continue wound care and will reculture site if fever. - A per Wound care recommendations. Cleanse around PEG tube site with normal saline and apply drain sponge around tube secure tube and drain sponge with medifix tape change as needed. Please use skin prep before applying adhesives to skin. Continue. 03/23 purulent discharge observed from PEG site - re ordered wound culture and will reconsult ID. 03/24 ID reconsulted recommendations pending. Patient with low grade fever overnight with a tmax of 99.7. Will start on Iv broad spectrum antibiotics ( Vancomycin and Zosyn IV), check blood cultures, CXR and urinalysis. 2. 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 - CT of the abdomen showed bladder mass right posteriorly with apparent extravesical extension and clot formation. - Urology spoke with family member, daughter, states that he's not recommending biopsy of the bladder mass. However daughter insisted on biopsy. Patient s/p cystoscopy and palliative transurethral resection of bladder tumor greater than 5 cm originating from right bladder wall performed by Dr. Sewell . 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 - Oncology following - appreciate their assistance. Family requesting aggressive therapy. CT chest negative for malignancy. MRI completed. Patient is not a candidate for chemotherapy. Family has decided on palliative XRT treatment and would like it to start MIGEL. Consult placed for radiation oncology. - Palliative care following, appreciate their assistance. - Continue to flush lopez catheter PRN. Monitor for recurrence of hematuria 3. 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 Intermittently tracks with eyes. - Continue Keppra 500mg BID for seizure prophylaxis. Keppra level 17.8. - PT/OT signed off as patient is unable to participate. - On Paxil 20 by mouth daily for depression. - On acetaminophen with codeine for pain scale of 2-10. - Morphine 1 mg every 24 hours when necessary for dressing change 4. Chronic respiratory failure secondary to CVA - Status post tracheostomy. Continue pulmonary toilet and bronchodilators as needed. Continue trach care, suctioning. Increased secretions improved with scheduled Levsin. Decreased dosing of scheduled Levsin to q8h. - Trach changed to size #6 XLT on 01/09 - Duo nebs every 4 hours while awake - Pulmonary currently following, appreciate assistance. 5. Atrial fibrillation, controlled 6. Hypertension controlled. 7. Dyslipidemia - Continue rate control with Cardizem and metoprolol. - [id number] score 4 - Echocardiogram in November 2015 shows preserved ejection fraction. - 03/24 Coumadin discontinued secondary to bleeding from sacral wound. No active bleeding noted. Coumadin resumed Pharmacy to dose. INR supratherapeutic at 3.3. Hold coumadin and aspirin due to drop in hemoglobin. - No active bleeding noted. 8. History of non-Hodgkin's lymphoma - Status post brain biopsy on December 13 by neurosurgery. Pathology consistent with acute infarct without evidence of lymphoma. 9 Diabetes mellitus Type 2 - Hemoglobin A1c is 5.5. - Fingersticks have been stable and were DC'd 02/01/17 - 03/24 Blood sugar uncontrolled - Will resume Accu-Cheks and SSI with insulin NovoLog. 10. Decubitus ulcer stage IV - Status post wide excision of sacral skin and biopsy of the cavity lining with debridement on 07/22/16. - Continue wound care, twice-daily dressing changes. Wound care recommendations last updated 12/12/16. Continue pressure relief measures including turning and positioning. - Patient's family has declined a diverting colostomy. Previous Wound culture growing Klebsiella and Enterococcus Faecalis. Previously on Augmentin. - Wound care last saw patient on 02/25/17, no new recommendations continue packing with Betadine moistened rolled Janis and covered with ABD pad and paper tape to secure. - Continue to monitor. Continue pressure-relief. - Morphine 1 mg every 24 hours when necessary for dressing change - confirmed with nursing staff continued dressing changes BID 11. Protein calorie malnutrition 12. Gastroesophageal reflux disease 13. Gastric ulcer, reflux esophagitis 14. Diarrhea, negative for C. difficile. - EGD on 07/30/16 showed gastric ulcers. Continue on Prevacid 30 mg Q12. - G/J tube clogged, IR consulted to evaluate. Replaced on 02/25/17 - TF held 03/16 due to emesis. No recurrence. TF resumed yesterday - patient tolerating. Devulcanizer Tender consulted to assist with rate/needs. Per their recommendations, Rec increasing TF'ing 10ml/hr Q 6hr, as tolerated, to goal rate 55ml/hr. Rec to discontinue the Ashish r/t pt has received Ashish for Rec dosing of 4-weeks to promote new tissue growth. - Continue bowel regimen with hold parameters, Lactinex and Imodium. (+)BM overnight x 1. - 03/23 patient with increased loose stools as per rn repeat C diff PCR - negative 15. Klebsiella/Pseudomonas/staph aureus HCAP 16. PSAE UTI - S/p Cefepime. Monitor for signs of infections. - strep pneumonia and Legionella urinary Ag is negative - C-diff PCR negative on 01/13 - 01/09 BC : Staph Epi, Urine cx: Pseudomonas, Sputum cx: Pseudomonas, kleb, Staph. - Patient was pancultured on 01/19 (Blood, sputum, urine) NGTD in urine and blood. Sputum + for pseudomonas. Likely colonization. 17. Hyponatremia - mild - appears stable - monitor as indicated 18. Anemia - Hemoglobin dropped down to 6.8 from 7.8. - Currently being transfused 1 unit of PRBC. - Monitor CBC 19. Oliguria - Likely due to dehydration. - Improving with IV fluids and increased free water via PEG. 03/24 DC Iv fluids. DVT prophylaxis: Continue SCDs, On coumadin Discussed with Nurse Miss Landin and his Mother in the room, all questions answered to the best of my abilities. Discharge Planning No cleared - patient with purulence on peg site and low grade fevers Problem Qualifiers (1) CVA (cerebral vascular accident): (2) DM (diabetes mellitus): Renny Kamara MD Mar 24, 2017 15:04
[2017-03-24] MEDS: SENNOSIDES SYRUP 8.8 MG/5 ML CUP PEG SCH (17:13)
[2017-03-24 18:29] LABS: BACTERIA, URINE OCC /hpf; BLOOD, URINE SMALL (NEG); CALCIUM OXALATE CRYSTALS,URINE OCC /hpf; GLUCOSE,URINE NEG (NEG); KETONE, URINE NEG (NEG); MUCUS URINE FEW /lpf (OCC); NITRITE,URINE NEG (NEG); PH, URINE 7.5 (5.0-8.5); URINE COLOR LIGHT-YELLOW (YELLW/STRAW)
[2017-03-24 18:30] LABS: COMMENT (UR) CATH-CULTURE IND; CULTURE IF INDICATED CATH CULTURE IND
[2017-03-24] MEDS: PARoxetine HCL SUSP 20 MG/10 ML UDC PEG SCH (18:33)
--- NOTE | 2017-03-24 20:05 | HHI.IDPN ---
Subjective Subjective Remarks IDelayed entry ID reconsulted 2 fever, low grade interim event s noted Pt was started on radiation for bladder cancer Pt was started on zosybn today Antibiotics zosyn Lines Peripheral IV Past Medical History Hypertension. Stage III non-Hodgkin's lymphoma. Diabetes mellitus. Paroxysmal atrial fibrillation. Brain biopsy in Nov, 2015. History of left arm surgery. 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 Vital Signs Date Time Temp Pulse Resp B/P (MAP) Pulse Ox O2 Delivery O2 Flow Rate FiO2 03/24/17 17:40 97 T-piece 6.00 28 03/24/17 16:00 95.6 95 18 115/68 (84) 95 03/24/17 14:13 96.4 96 19 111/70 100 03/24/17 12:05 95 T-piece 6.00 28 03/24/17 12:00 97.6 102 18 103/68 (80) 99 03/24/17 10:28 99.7 110 19 116/71 (86) 98 03/24/17 10:28 99.7 110 19 116/71 98 03/24/17 10:14 99.7 112 19 118/68 98 03/24/17 10:14 99.7 112 19 118/68 (85) 97 Manual Cuff/Auscultation 03/24/17 09:20 99 Trach Collar 5.00 28 03/24/17 09:10 97 T-piece 7.00 28 03/24/17 08:00 97.9 116 19 116/76 (89) 98 03/24/17 00:00 99.3 112 19 115/61 (79) 98 03/23/17 23:27 Trach Collar 6.00 28 03/24/17 03/24/17 03/25/17 15:00 23:00 07:00 Intake Total 2038 ml 0 ml Output Total 925 ml Balance 2038 ml -925 ml Intake Oral 0 ml IV Total 504 ml Tube Feeding 442 ml Packed Cells 782 ml Blood Product IV Normal Saline Flush 10 ml Other 300 ml Output Urine Total 925 ml # Bowel Movements 2 . Laboratory Tests Test 03/22/17 20:12 03/23/17 06:05 03/24/17 05:55 White Blood Count 6.3 TH/MM3 6.0 TH/MM3 5.4 TH/MM3 Red Blood Count 3.49 MIL/MM3 3.56 MIL/MM3 3.06 MIL/MM3 Hemoglobin 7.7 GM/DL 7.8 GM/DL 6.8 GM/DL Hematocrit 24.9 % 25.4 % 21.7 % Mean Corpuscular Volume 71.4 FL 71.4 FL 71.1 FL Mean Corpuscular Hemoglobin 22.0 PG 21.9 PG 22.2 PG Mean Corpuscular Hemoglobin Concent 30.7 % 30.7 % 31.3 % Red Cell Distribution Width 20.4 % 20.5 % 20.4 % Platelet Count 155 TH/MM3 137 TH/MM3 115 TH/MM3 Mean Platelet Volume 8.1 FL 8.5 FL 8.4 FL Neutrophils (%) (Auto) 76.0 % 78.3 % Lymphocytes (%) (Auto) 16.3 % 14.7 % Monocytes (%) (Auto) 5.4 % 4.6 % Eosinophils (%) (Auto) 1.3 % 1.8 % Basophils (%) (Auto) 1.0 % 0.6 % Neutrophils # (Auto) 4.6 TH/MM3 4.2 TH/MM3 Lymphocytes # (Auto) 1.0 TH/MM3 0.8 TH/MM3 Monocytes # (Auto) 0.3 TH/MM3 0.2 TH/MM3 Eosinophils # (Auto) 0.1 TH/MM3 0.1 TH/MM3 Basophils # (Auto) 0.1 TH/MM3 0.0 TH/MM3 CBC Comment DIFF FINAL DIFF FINAL Differential Comment Laboratory Tests Test 03/22/17 20:12 03/23/17 06:05 03/24/17 05:55 Blood Urea Nitrogen 21 MG/DL 19 MG/DL 15 MG/DL Creatinine 1.21 MG/DL 1.15 MG/DL 0.99 MG/DL Random Glucose 194 MG/DL 190 MG/DL 195 MG/DL Calcium Level 8.3 MG/DL 8.3 MG/DL 8.0 MG/DL Sodium Level 134 MEQ/L 134 MEQ/L 135 MEQ/L Potassium Level 4.1 MEQ/L 3.8 MEQ/L 4.2 MEQ/L Chloride Level 98 MEQ/L 100 MEQ/L 103 MEQ/L Carbon Dioxide Level 27.5 MEQ/L 26.0 MEQ/L 24.3 MEQ/L Anion Gap 9 MEQ/L 8 MEQ/L 8 MEQ/L Estimat Glomerular Filtration Rate 61 ML/MIN 65 ML/MIN 77 ML/MIN Total Protein 8.2 GM/DL 7.3 GM/DL Albumin 2.1 GM/DL 1.8 GM/DL Phosphorus Level 2.1 MG/DL Magnesium Level 2.2 MG/DL Alkaline Phosphatase 114 U/L 96 U/L Aspartate Amino Transf (AST/SGOT) 77 U/L 60 U/L Alanine Aminotransferase (ALT/SGPT) 13 U/L 10 U/L Total Bilirubin 0.2 MG/DL 0.2 MG/DL Microbiology Date/Time Source Procedure Growth Status 03/24/17 00:00 Stool Stool Stool Occult Blood ([facility]ISHA) - Final HEMOCCULT NEGATIVE Complete 03/24/17 17:50 Urine Catheterized Urine Urine Culture Pending Received 03/23/17 15:40 Wound Abdomen Gram Stain - Final Resulted 03/23/17 15:40 Wound Abdomen Wound Culture - Preliminary Resulted Imaging Last Impressions Chest X-Ray 03/16/17 0000 Signed Impressions: Service Date/Time: Thursday, March 16, 2017 15:18 - CONCLUSION: 1. Mild perihilar infiltrates. 2. Tracheostomy tube remains in good position 4 cm above the geno Eduardo Valenzuela MD Brain MRI 03/14/17 0000 Signed Impressions: Service Date/Time: Tuesday, March 14, 2017 12:41 - CONCLUSION: The signal abnormality and enhancement within the bilateral occipital lobes and colin have decreased since the prior examinations. No new abnormality is identified. There is no new enhancing area or signs of a recent ischemia. Glen Gordon MD Chest CT 03/10/17 0000 Signed Impressions: Service Date/Time: Friday, March 10, 2017 21:00 - CONCLUSION: 1. Periaortic soft tissue along the proximal descending thoracic aorta not previously seen. This represents either lymphomatous involvement or adjacent consolidated airspace disease. 2. Mild bilateral airspace disease 3. No evidence of significant lymphadenopathy involving the mediastinum, hilar regions, axillas or supraclavicular lore chain. 4. Tracheostomy tube in place. Ernesto Kulkarni MD Abdomen/Pelvis CT 02/27/17 0000 Signed Impressions: Service Date/Time: February 02:24 - CONCLUSION: 1. Abdominal aortic aneurysm. 2. Bladder mass is noted on the right posteriorly with apparent extravesical extension and clot formation. 3. Left renal cyst. 4. Left lower lobe atelectasis. 5. Large sacral decubitus ulcer with bony destruction and sclerosis of the sacrum mid to left lateral portion in the region of S3 and inferiorly which would suggest chronic osteomyelitis in the appropriate clinical setting. Rajan Granados MD Soft Tissue Ultrasound 02/26/17 0000 Signed Impressions: Service Date/Time: Sunday, February 26, 2017 12:52 - CONCLUSION: 1. Just inferior to the G-tube in the left abdomen, there is a superficial 3.8 x 2.9 0.9 cm complex fluid collection in the subcutaneous tissues. 2. Findings are nonspecific. This could represent a small seroma or abscess. Would consider CT scan of the abdomen without contrast for further evaluation to determine if there is intraperitoneal extension. Bobby Gray MD Gastrostomy Tube Placement 02/25/17 0000 Signed Impressions: Service Date/Time: Saturday, February 25, 2017 14:19 - CONCLUSION: Uncomplicated exchange of gastroenteric feeding tube for gastrostomy tube as above. Positioning confirmed. The tube can be used immediately. Glen Zamora MD Tube Change 02/14/17 0000 Signed Impressions: Service Date/Time: Tuesday, February 14, 2017 00:00 - CONCLUSION: Uncomplicated gastrojejunostomy tube exchange as above. Scott Griffin MD Head CT 01/09/17 0000 Signed Impressions: Service Date/Time: December 17:43 - CONCLUSION: 1. No acute hemorrhage or mass effect. 2. 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 3. Atrophy. Gerald Mukherjee MD CT Angiography 01/09/17 0000 Signed Impressions: Service Date/Time: December 17:49 - CONCLUSION: 1. No evidence of pulmonary emboli. 2. Patchy consolidation in both posterior lower lobes right greater than left. This could represent pneumonia. 3. 2 small noncalcified pulmonary nodules which are nonspecific finding. Short-term CT followup is recommended beginning in 6 months with a noncontrast outpatient CT. Gerald Mukherjee MD Tube Check 12/04/16 0000 Signed Impressions: Service Date/Time: Sunday, December 04, 2016 17:58 - CONCLUSION: Uncomplicated tube injection as above. the tube is in good position and functions normally. Moises aRmírez MD Abdomen X-Ray 08/31/16 0000 Signed Impressions: Service Date/Time: Wednesday, August 31, 2016 16:36 - CONCLUSION: 1. No acute findings. Mild constipation. Durga Dotson MD Head Magnetic Resonance Angiography 03/05/16 0000 Signed Impressions: Service Date/Time: Saturday, March 05, 2016 09:26 - CONCLUSION: Persistent high-grade subtotal occlusive stenotic lesions in the distal right vertebral artery and proximal basilar artery with significant improvement in flow and recanalization following initial presentation of thrombosis. Stable interstitial circulation without significant stenosis. Ernesto Kulkarni MD Neck Magnetic Resonance Angiography 12/22/15 1445 Signed Impressions: Service Date/Time: Tuesday, December 22, 2015 09:22 - CONCLUSION: Variant origin of the left vertebral artery from the aortic arch. No evidence of carotid stenosis. Glen Zamora MD Head/Brain Mag Res Venography 12/22/15 0000 Signed Impressions: Service Date/Time: Tuesday, December 22, 2015 09:22 - CONCLUSION: Normal MRV. Jonel Jones Jr., MD Physical Exam GENERAL: eyes opened , NAD SKIN: Warm to touch and dry. No generalized rash HEENT: [place] conjunctiva. . No scleral icterus. No injection or drainage. Mucous membranes pink and moist. NECK: Tracheostomy site looks okay. No secretions in the tubings noted CARDIOVASCULAR: Regular rate and rhythm. No murmur or rub. RESPIRATORY: clear to auscultation ABDOMEN: Soft, obese, non-tender, not distended. PEG site with small area of macerated scin, minimal thin drainage - small amount BS (+) normoactive EXTREMITIES: No clubbing, cyanosis. MIld pedal edema. Warm, and well perfused NEUROLOGICAL: resting , not following. Eyes opened, tracks MS is at b/l PSYCH: Unable to assess ; lopez in place, urine looks slightly cloudy wo codi blood LINE: Peripheral IV with no evidence of infection Assessment & Plan Remarks IMPRESSION Fever sepsis CVA, with significant neurologic sequela Hx NHL Acute VDRF -resolved; chronic resp failure, on piece PSAE in sputum and urine likely colonization. Small perihilar infiltrate is present stage IV decub with no e/o infx Superficial appaering PEG anne marie infection, sp treatment looks better, appears just irritation now RECOMMENDATION cont zosyn for now repeat blood cultures if spikes again fu sputum clx fu urine clx dw RN dw mother @ bs Violetta Alvarez MD Mar 24, 2017 20:05
[2017-03-24] MEDS: ACETAMINOPHEN/CODEINE ELIX 120 MG/12 MG/5 ML CUP G-TUBE PRN (20:58)
[2017-03-25] VITALS: BP 115/70; PULSE 96; RESP 18; TEMP 97.9; O2SAT 98
[2017-03-25] MEDS: PIPERACIL-TAZO 4.5 GM PREMIX 100 ML IV SCH ×3 (04:21→21:31)
[2017-03-25] MEDS: HYOSCYAMINE 0.125 MG TAB G-TUBE SCH ×3 (04:21→21:31)
[2017-03-25] MEDS: ACETIC ACID 0.25% SOLN 1000 ML IRR BTL IRRIGATION SCH ×3 (04:23→21:35)
[2017-03-25 07:45] LABS: AUTOMATED NEUTROPHIL # 4.3 TH/MM3 (1.8-7.7); BASOPHIL % 0.8 % (0.0-2.0); EOSINOPHIL # 0.1 TH/MM3 (0-0.4); HEMATOCRIT 25.7 % (39.0-51.0); LYMPH % 10.2 % (9.0-44.0); LYMPHOCYTE # 0.5 TH/MM3 (1.0-4.8); MEAN CELL VOLUME 72.7 FL (80.0-100.0); MEAN CORPUSCULAR HEMOGLOBIN 23.1 PG (27.0-34.0); MEAN CORPUSCULAR HGB CONC 31.7 % (32.0-36.0); MONO % 5.3 % (0.0-8.0); NEUT % 81.7 % (16.0-70.0); PLATELET COUNT 94 TH/MM3 (150-450); RED BLOOD COUNT 3.53 MIL/MM3 (4.50-5.90); RED CELL DISTRIBUTION WIDTH 21.2 % (11.6-17.2); WHITE BLOOD COUNT 5.3 TH/MM3 (4.0-11.0)
[2017-03-25 07:51] LABS: INTERNATIONAL NORMALIZED RATIO 2.7 RATIO; PROTHROMBIN TIME - PATIENT 31.2 SEC (9.8-11.6)
[2017-03-25 07:53] LABS: HEMO FLAGS AUTO DIFF
[2017-03-25 08:00] VITALS: BP 121/77; PULSE 105; RESP 20; TEMP 97.7; O2SAT 98
[2017-03-25 08:00] LABS: ANION GAP 7 MEQ/L (5-15); AST (GOT) 65 U/L (15-37); BICARBONATE 25.4 MEQ/L (21.0-32.0); BLOOD UREA NITROGEN 13 MG/DL (7-18); CHLORIDE 100 MEQ/L (98-107); GLOMERULAR FILTRATION RATE 72 ML/MIN (>89); POTASSIUM 4.2 MEQ/L (3.5-5.1); SODIUM (NA) 132 MEQ/L (136-145)
[2017-03-25 08:03] LABS: ALKALINE PHOSPHATASE 94 U/L (45-117); ALT (GPT) 13 U/L (12-78); TOTAL BILIRUBIN ADULT 0.3 MG/DL (0.2-1.0)
[2017-03-25] MEDS: ASCORBIC ACID 500 MG TAB PO SCH (09:00)
[2017-03-25] MEDS: LANSOPRAZOLE SOLUTAB 30 MG TAB NG SCH ×2 (09:00→21:30)
[2017-03-25] MEDS: SODIUM CHLORIDE 0.65% NASAL SPRAY 45 ML BTL NASAL SCH ×2 (09:00→21:00)
[2017-03-25] MEDS: ASPIRIN 325 MG TAB TUBE SCH (09:00)
[2017-03-25] MEDS: DILTIAZEM HCL 30 MG TAB PEG SCH ×4 (09:00→21:00)
[2017-03-25] MEDS: ARTIFICIAL TEARS OPTH SOLN 15 ML BTL EACH EYE SCH ×2 (09:00→21:34)
[2017-03-25] MEDS: levETIRAcetam 500 MG/5 ML UDC TUBE SCH ×2 (09:00→21:00)
[2017-03-25] MEDS: NYSTATIN 100,000 U/GM PWD 15 GM BTL TOPICAL SCH ×2 (09:00→21:35)
[2017-03-25] MEDS: FERROUS SULFATE 300 MG /5ML UDC PO SCH (09:00)
[2017-03-25] MEDS: BACITRACIN TOP OINT 15 GM TUBE TOP SCH ×2 (09:00→21:00)
[2017-03-25] MEDS: BACITRACIN OINT 0.9 GM PKT TOPICAL SCH (09:00)
[2017-03-25 09:30] LABS: OVALOCYTES 1+ (NORMAL); PLATELET ESTIMATE SMEAR LOW (NORMAL); TEARDROP RBCS 1+ (NORMAL)
[2017-03-25 09:31] LABS: PLATELET MORPHOLOGY NORMAL (NORMAL); SCAN/DIFF AUTO DIFF CONFIRMED
[2017-03-25 12:00] VITALS: BP 112/68; PULSE 108; RESP 20; TEMP 96.8; O2SAT 96
[2017-03-25] MEDS: RESP: LEVALBUTEROL HYDROCHLORIDE 0.63 MG/3 ML NEB (PRN) NEB (14:22)
[2017-03-25 14:30] VITALS: O2SAT 100
[2017-03-25] MEDS: WARFARIN SOD 3 MG TAB PO SCH (16:00)
[2017-03-25] MEDS: SENNOSIDES SYRUP 8.8 MG/5 ML CUP PEG SCH (16:00)
--- NOTE | 2017-03-25 16:53 | HHI.PR ---
Subjective Remarks No frther fevers No hematuria mother at bedside urine is clear good urine output Objective Vitals Vital Signs Date Time Temp Pulse Resp B/P (MAP) Pulse Ox O2 Delivery O2 Flow Rate FiO2 03/25/17 14:30 100 T-piece 8.00 28 03/25/17 12:00 96.8 108 20 112/68 (83) 96 03/25/17 08:00 97.7 105 20 121/77 (92) 98 03/25/17 00:00 97.9 96 18 115/70 (85) 98 03/24/17 21:00 97 Trach Collar 6.00 T-Piece Humidified 03/24/17 20:00 98.2 101 20 122/73 (89) 97 03/24/17 17:40 97 T-piece 6.00 28 I/O 03/24/17 03/24/17 03/24/17 03/25/17 03/25/17 03/25/17 06:59 14:59 22:59 06:59 14:59 22:59 Intake Total 2038 ml 1066 ml 1644 ml Output Total 1025 ml 400 ml Balance 2038 ml 41 ml 1244 ml Intake Oral 0 ml 0 ml IV Total 504 ml 350 ml 482 ml Tube Feeding 442 ml 416 ml 862 ml Packed Cells 782 ml Blood Product IV Normal Saline Flush 10 ml Tube Irrigant 300 ml 300 ml Other 300 ml Output Urine Total 1025 ml 400 ml # Voids 1 # Bowel Movements 1 3 0 Result Diagram: 03/25/17 0712 03/25/17 0712 Imaging Last Impressions Chest X-Ray 03/24/17 0000 Signed Impressions: Service Date/Time: Friday, March 24, 2017 12:37 - CONCLUSION: Minimal increase consolidation left base. No significant failure. Octavio Ramírez MD FACR Brain MRI 03/14/17 0000 Signed Impressions: Service Date/Time: Tuesday, March 14, 2017 12:41 - CONCLUSION: The signal abnormality and enhancement within the bilateral occipital lobes and colin have decreased since the prior examinations. No new abnormality is identified. There is no new enhancing area or signs of a recent ischemia. Glen Gordon MD Chest CT 03/10/17 0000 Signed Impressions: Service Date/Time: Friday, March 10, 2017 21:00 - CONCLUSION: 1. Periaortic soft tissue along the proximal descending thoracic aorta not previously seen. This represents either lymphomatous involvement or adjacent consolidated airspace disease. 2. Mild bilateral airspace disease 3. No evidence of significant lymphadenopathy involving the mediastinum, hilar regions, axillas or supraclavicular lore chain. 4. Tracheostomy tube in place. Ernesto Kulkarni MD Abdomen/Pelvis CT 02/27/17 0000 Signed Impressions: Service Date/Time: February 02:24 - CONCLUSION: 1. Abdominal aortic aneurysm. 2. Bladder mass is noted on the right posteriorly with apparent extravesical extension and clot formation. 3. Left renal cyst. 4. Left lower lobe atelectasis. 5. Large sacral decubitus ulcer with bony destruction and sclerosis of the sacrum mid to left lateral portion in the region of S3 and inferiorly which would suggest chronic osteomyelitis in the appropriate clinical setting. Rajan Granados MD Soft Tissue Ultrasound 02/26/17 0000 Signed Impressions: Service Date/Time: Sunday, February 26, 2017 12:52 - CONCLUSION: 1. Just inferior to the G-tube in the left abdomen, there is a superficial 3.8 x 2.9 0.9 cm complex fluid collection in the subcutaneous tissues. 2. Findings are nonspecific. This could represent a small seroma or abscess. Would consider CT scan of the abdomen without contrast for further evaluation to determine if there is intraperitoneal extension. Bobby Gray MD Gastrostomy Tube Placement 02/25/17 0000 Signed Impressions: Service Date/Time: Saturday, February 25, 2017 14:19 - CONCLUSION: Uncomplicated exchange of gastroenteric feeding tube for gastrostomy tube as above. Positioning confirmed. The tube can be used immediately. Glen Zamora MD Tube Change 02/14/17 0000 Signed Impressions: Service Date/Time: Tuesday, February 14, 2017 00:00 - CONCLUSION: Uncomplicated gastrojejunostomy tube exchange as above. Scott Griffin MD Head CT 01/09/17 0000 Signed Impressions: Service Date/Time: December 17:43 - CONCLUSION: 1. No acute hemorrhage or mass effect. 2. 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 3. Atrophy. Gerald Mukherjee MD CT Angiography 01/09/17 0000 Signed Impressions: Service Date/Time: December 17:49 - CONCLUSION: 1. No evidence of pulmonary emboli. 2. Patchy consolidation in both posterior lower lobes right greater than left. This could represent pneumonia. 3. 2 small noncalcified pulmonary nodules which are nonspecific finding. Short-term CT followup is recommended beginning in 6 months with a noncontrast outpatient CT. Gerald Mukherjee MD Tube Check 12/04/16 0000 Signed Impressions: Service Date/Time: Sunday, December 04, 2016 17:58 - CONCLUSION: Uncomplicated tube injection as above. the tube is in good position and functions normally. Moises Ramírez MD Abdomen X-Ray 08/31/16 0000 Signed Impressions: Service Date/Time: Wednesday, August 31, 2016 16:36 - CONCLUSION: 1. No acute findings. Mild constipation. Durga Dotson MD Head Magnetic Resonance Angiography 03/05/16 0000 Signed Impressions: Service Date/Time: Saturday, March 05, 2016 09:26 - CONCLUSION: Persistent high-grade subtotal occlusive stenotic lesions in the distal right vertebral artery and proximal basilar artery with significant improvement in flow and recanalization following initial presentation of thrombosis. Stable interstitial circulation without significant stenosis. Ernesto Kulkarni MD Neck Magnetic Resonance Angiography 12/22/15 1445 Signed Impressions: Service Date/Time: Tuesday, December 22, 2015 09:22 - CONCLUSION: Variant origin of the left vertebral artery from the aortic arch. No evidence of carotid stenosis. Glen Zamora MD Head/Brain Mag Res Venography 12/22/15 0000 Signed Impressions: Service Date/Time: Tuesday, December 22, 2015 09:22 - CONCLUSION: Normal MRV. Jonel Jones Jr., MD Objective Remarks GENERAL: Non-verbal, lethargic, opens eyes to voice and command, tracking people in room. Not in acute distress. SKIN: Warm and dry. HEENT: Normocephalic. Pupils nonicteric. Nose without bleeding. Airway patent. NECK: Supple, trachea midline. T-tube in place, site clean, dry, intact. No JVD. CARDIOVASCULAR: Regular rate and rhythm. No murmur appreciated. RESPIRATORY: Breath sounds equal bilaterally. No accessory muscle use. Trach tube in place. Bedside monitor indicated oxygen saturation was 99%. Bilateral rhonchi. GASTROINTESTINAL: Abdomen soft, non-tender, nondistended. PEG tube noted,area around insertion is now clean with PEG tube feeds, PEG tube slides out easily. MUSCULOSKELETAL: No cyanosis, or edema. PSYCHIATRIC: Pt non-verbal. Procedures 07/22/2016 Wide excision of sacral skin wound, biopsy of the cavity lining and debridement. PEG removal and Gj tube placement 07/29/16 VAC changes- M-W-F 10/23/16, 11/18, 12/31- GJ tube replacement 01/02/16 PEG placement 01/02/16 tracheostomy 02/25/17 PEG replacement 03/03/17 Cystoscopy and palliative transurethral resection of bladder tumor greater than 5cm originating from the right bladder wall Medications and IVs Current Medications Medications (Trade) Dose Ordered Sig/Junior Route Start Time Stop Time Status Last Admin (NS Flush) 2 ml UNSCH PRN IVF 12/21/15 06:00 09/28/16 21:18 (Keppra Liq) 500 mg Q12HR TUBE 12/27/15 21:00 03/25/17 09:00 (Tylenol 650 Mg/ 20 ml Liq) 650 mg Q6H PRN TUBE 12/30/15 15:15 03/23/17 00:33 (Mycostatin Powder) 1 applic Q12HR TOPICAL 01/08/16 21:00 03/25/17 09:00 (Pill Splitter) 1 ea UNSCH PRN OTHER 01/14/16 08:30 (Acetic Acid 0.25% Irr Btl) 10 ml Q8HR IRRIGATION 02/05/16 16:00 03/25/17 09:42 (Paxil Liq) 20 mg DAILY@1900 PEG 03/12/16 19:00 Future hold 03/24/17 18:33 (Zofran Inj) 4 mg Q6HR PRN IV PUSH 04/14/16 19:45 03/16/17 16:00 (Xopenex Neb) 0.63 mg Q4HR NEB PRN NEB 05/05/16 12:00 03/25/17 14:22 (Aspirin) 325 mg DAILY TUBE 05/27/16 11:40 Future hold 03/25/17 09:00 (Baciguent Oint) 1 applic BID TOP 07/20/16 10:00 03/25/17 09:00 ([place]) 1 spray BID NASAL 08/01/16 21:00 03/25/17 09:00 (Tears Naturale Opth Soln) 1 drop BID EACH EYE 09/05/16 21:00 03/25/17 09:00 (Morphine Inj) 1 mg Q24H PRN IV PUSH 09/17/16 14:30 10/22/16 02:00 (Dulcolax Supp) 10 mg DAILY PRN RECTAL 09/26/16 15:30 12/08/16 09:17 (Tylenol - Codeine 120-12 Liq) 5 ml Q4H PRN G-TUBE 12/27/16 15:30 03/24/17 20:58 (Imodium Liq) 2 mg Q6H PRN PEG 12/27/16 15:30 03/24/17 01:16 (Milk Of Magnesia Liq) 30 ml DAILY PRN PEG 12/27/16 15:30 02/11/17 08:46 (Milk Of Magnesia Liq) 30 ml DAILY PEG 12/28/16 09:00 Future Hold 01/19/17 08:44 (Senna Liq) 8.8 mg DAILY@1600 PEG 12/27/16 16:00 03/24/17 17:13 (Lactulose Liq) 30 ml DAILY PRN PEG 12/27/16 15:30 (Cardizem) 30 mg QID PEG 01/09/17 18:00 03/25/17 14:18 (D50w (Vial) Inj) 50 ml UNSCH PRN IV 01/09/17 16:00 (Glucagon Inj) 1 mg UNSCH PRN OTHER 01/09/17 16:00 (Prevacid Odt) 30 mg BID NG 01/26/17 21:00 03/25/17 09:00 (Ferrous Sulfate Liq) 300 mg DAILY PO 02/14/17 09:00 03/25/17 09:00 (Vitamin C) 1,000 mg DAILY PO 02/14/17 09:00 03/25/17 09:00 (Bacitracin Oint Packet) 0.9 gm DAILY TOPICAL 02/25/17 09:00 03/25/17 09:00 (Levsin) 0.25 mg Q8HR G-TUBE 03/18/17 22:00 03/25/17 09:42 Pharmacy Profile Note 0 ml @ 0 mls/hr UNSCH OTHER 03/19/17 15:30 Piperacillin Sod/ Tazobactam Sod 100 ml @ 200 mls/hr Q8H IV 03/24/17 14:00 03/25/17 14:00 (Coumadin) 3 mg DAILY@1600 PO 03/25/17 16:00 Urinary Catheter: No Date of Insertion: Mar 03, 2017 Vascular Central Line Catheter: No A/P Problem List: (1) CVA (cerebral vascular accident) ICD Code: I63.9 - Cerebral infarction, unspecified Status: Acute (2) A-fib ICD Code: I48.91 - Unspecified atrial fibrillation Status: Chronic (3) DM (diabetes mellitus) ICD Code: E11.9 - Type 2 diabetes mellitus without complications Status: Chronic (4) Hyponatremia ICD Code: E87.1 - Hypo-osmolality and hyponatremia Status: Acute Assessment and Plan 60 year-old male with past medical history of paroxysmal A. fib, hypertension, stage III non-Hodgkin's lymphoma status post chemotherapy who came into the hospital with altered mental status. 1. PEG tube site cellulitis/Low grade fever -ID was consulted - wound culture positive for Kleb pneumo sensitive to Levaquin. - BCX negative - SP treatment with IV Levaquin x 5 days however there is still purulence observed. Continue wound care and will reculture site if fever. - A per Wound care recommendations. Cleanse around PEG tube site with normal saline and apply drain sponge around tube secure tube and drain sponge with medifix tape change as needed. Please use skin prep before applying adhesives to skin. Continue. 03/23 purulent discharge observed from PEG site - re ordered wound culture and will reconsult ID. 03/24 ID reconsulted recommendations pending. Patient with low grade fever overnight with a tmax of 99.7. Will start on Iv broad spectrum antibiotics ( Vancomycin and Zosyn IV), check blood cultures, CXR and urinalysis 03/25 UA (+) with urine culture growing gram negative rods. Continue IV zosyn and fu ID recommendations. blood cultures negative. Consult infectious GI to asses PEG tube. 2. 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 - CT of the abdomen showed bladder mass right posteriorly with apparent extravesical extension and clot formation. - Urology spoke with family member, daughter, states that he's not recommending biopsy of the bladder mass. However daughter insisted on biopsy. Patient s/p cystoscopy and palliative transurethral resection of bladder tumor greater than 5 cm originating from right bladder wall performed by Dr. Sewell . 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 - Oncology following - appreciate their assistance. Family requesting aggressive therapy. CT chest negative for malignancy. MRI completed. Patient is not a candidate for chemotherapy. Family has decided on palliative XRT treatment and would like it to start MIGEL. Consult placed for radiation oncology. - Palliative care following, appreciate their assistance. - Continue to flush lopez catheter PRN. Monitor for recurrence of hematuria 3. 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 Intermittently tracks with eyes. - Continue Keppra 500mg BID for seizure prophylaxis. Keppra level 17.8. - PT/OT signed off as patient is unable to participate. - On Paxil 20 by mouth daily for depression. - On acetaminophen with codeine for pain scale of 2-10. - Morphine 1 mg every 24 hours when necessary for dressing change 4. Chronic respiratory failure secondary to CVA - Status post tracheostomy. Continue pulmonary toilet and bronchodilators as needed. Continue trach care, suctioning. Increased secretions improved with scheduled Levsin. Decreased dosing of scheduled Levsin to q8h. - Trach changed to size #6 XLT on 01/09 - Duo nebs every 4 hours while awake - Pulmonary currently following, appreciate assistance. 5. Atrial fibrillation, controlled 6. Hypertension controlled. 7. Dyslipidemia - Continue rate control with Cardizem and metoprolol. - [id number]-BOXh score 4 - Echocardiogram in November 2015 shows preserved ejection fraction. - 03/24 Coumadin discontinued secondary to bleeding from sacral wound. No active bleeding noted. Coumadin resumed Pharmacy to dose. INR supratherapeutic at 3.3. Hold coumadin and aspirin due to drop in hemoglobin. - No active bleeding noted. 8. History of non-Hodgkin's lymphoma - Status post brain biopsy on December 13 by neurosurgery. Pathology consistent with acute infarct without evidence of lymphoma. 9 Diabetes mellitus Type 2 - Hemoglobin A1c is 5.5. - Fingersticks have been stable and were DC'd 7/15/17 - 03/24 Blood sugar uncontrolled - Will resume Accu-Cheks and SSI with insulin NovoLog. 10. Decubitus ulcer stage IV - Status post wide excision of sacral skin and biopsy of the cavity lining with debridement on 07/22/16. - Continue wound care, twice-daily dressing changes. Wound care recommendations last updated 12/12/16. Continue pressure relief measures including turning and positioning. - Patient's family has declined a diverting colostomy. Previous Wound culture growing Klebsiella and Enterococcus Faecalis. Previously on Augmentin. - Wound care last saw patient on 02/25/17, no new recommendations continue packing with Betadine moistened rolled Janis and covered with ABD pad and paper tape to secure. - Continue to monitor. Continue pressure-relief. - Morphine 1 mg every 24 hours when necessary for dressing change - confirmed with nursing staff continued dressing changes BID 11. Protein calorie malnutrition 12. Gastroesophageal reflux disease 13. Gastric ulcer, reflux esophagitis 14. Diarrhea, negative for C. difficile. - EGD on 07/30/16 showed gastric ulcers. Continue on Prevacid 30 mg Q12. - G/J tube clogged, IR consulted to evaluate. Replaced on 02/25/17 - TF held 03/16 due to emesis. No recurrence. TF resumed yesterday - patient tolerating. Radio Antenna Installer consulted to assist with rate/needs. Per their recommendations, Rec increasing TF'ing 10ml/hr Q 6hr, as tolerated, to goal rate 55ml/hr. Rec to discontinue the Ashish r/t pt has received Ashish for Rec dosing of 4-weeks to promote new tissue growth. - Continue bowel regimen with hold parameters, Lactinex and Imodium. (+)BM overnight x 1. - 03/23 patient with increased loose stools as per rn repeat C diff PCR - negative 15. Klebsiella/Pseudomonas/staph aureus HCAP 16. PSAE UTI - S/p Cefepime. Monitor for signs of infections. - strep pneumonia and Legionella urinary Ag is negative - C-diff PCR negative on 01/13 - 01/09 BC : Staph Epi, Urine cx: Pseudomonas, Sputum cx: Pseudomonas, kleb, Staph. - Patient was pancultured on 01/19 (Blood, sputum, urine) NGTD in urine and blood. Sputum + for pseudomonas. Likely colonization. 17. Hyponatremia - Sodium trending down. Will hold free water via PEG and continue to monitor sodium. 18. Anemia - sp transfusion of 1 unit of PRBC on 03/24. Hemoglobin responded appropriately from 6.8 and 8.1. - Stool Hemoccult negative. - Continue to monitor cbc. 19. Oliguria - Likely due to dehydration. - Improving with IV fluids and increased free water via PEG. - Resolved DVT prophylaxis: Continue SCDs, On coumadin Discussed w RN and patient's mother. Discharge Planning Not cleared - patient with purulence on peg site and low grade fevers Problem Qualifiers (1) CVA (cerebral vascular accident): (2) DM (diabetes mellitus): Renny Kamara MD Mar 25, 2017 16:53
[2017-03-25] MEDS: PARoxetine HCL SUSP 20 MG/10 ML UDC PEG SCH (18:49)
[2017-03-25 18:50] VITALS: BP 113/74; PULSE 97; RESP 20; TEMP 96.7; O2SAT 99
[2017-03-25 20:00] VITALS: BP 108/69; PULSE 91; RESP 18; TEMP 96; O2SAT 97
[2017-03-26] VITALS (8 sets, daily range): BP systolic 115–119; BP diastolic 70–74; PULSE 101–104; RESP 17–21; TEMP 96.3–98.7; O2SAT 95–100
[2017-03-26] MEDS: ACETIC ACID 0.25% SOLN 1000 ML IRR BTL IRRIGATION SCH ×3 (05:16→21:33)
[2017-03-26] MEDS: PIPERACIL-TAZO 4.5 GM PREMIX 100 ML IV SCH ×3 (05:16→21:29)
[2017-03-26] MEDS: HYOSCYAMINE 0.125 MG TAB G-TUBE SCH ×3 (05:16→21:29)
[2017-03-26 07:08] LABS: HEMATOCRIT 25.5 % (39.0-51.0); MEAN CORPUSCULAR HEMOGLOBIN 22.7 PG (27.0-34.0); MEAN CORPUSCULAR HGB CONC 31.1 % (32.0-36.0); PLATELET COUNT 102 TH/MM3 (150-450); RED BLOOD COUNT 3.49 MIL/MM3 (4.50-5.90); RED CELL DISTRIBUTION WIDTH 21.4 % (11.6-17.2); REVIEW FLAG FINAL; WHITE BLOOD COUNT 4.2 TH/MM3 (4.0-11.0)
[2017-03-26 07:11] LABS: INTERNATIONAL NORMALIZED RATIO 2.6 RATIO; PROTHROMBIN TIME - PATIENT 30.3 SEC (9.8-11.6)
[2017-03-26 07:29] LABS: BICARBONATE 23.9 MEQ/L (21.0-32.0); MAGNESIUM 2.1 MG/DL (1.5-2.5); POTASSIUM 4.4 MEQ/L (3.5-5.1)
[2017-03-26] MEDS: DILTIAZEM HCL 30 MG TAB PEG SCH ×4 (07:36→21:24)
[2017-03-26] MEDS: FERROUS SULFATE 300 MG /5ML UDC PO SCH (07:36)
[2017-03-26] MEDS: LANSOPRAZOLE SOLUTAB 30 MG TAB NG SCH ×2 (07:37→21:24)
[2017-03-26] MEDS: ASPIRIN 325 MG TAB TUBE SCH (07:37)
[2017-03-26] MEDS: ASCORBIC ACID 500 MG TAB PO SCH (07:37)
[2017-03-26] MEDS: SODIUM CHLORIDE 0.65% NASAL SPRAY 45 ML BTL NASAL SCH ×2 (07:38→21:00)
[2017-03-26] MEDS: BACITRACIN OINT 0.9 GM PKT TOPICAL SCH (07:38)
[2017-03-26] MEDS: levETIRAcetam 500 MG/5 ML UDC TUBE SCH ×2 (07:38→21:30)
[2017-03-26] MEDS: ARTIFICIAL TEARS OPTH SOLN 15 ML BTL EACH EYE SCH ×2 (07:38→21:33)
[2017-03-26] MEDS: BACITRACIN TOP OINT 15 GM TUBE TOP SCH ×2 (07:39→21:00)
[2017-03-26] MEDS: NYSTATIN 100,000 U/GM PWD 15 GM BTL TOPICAL SCH ×2 (07:39→21:00)
[2017-03-26] MEDS: SENNOSIDES SYRUP 8.8 MG/5 ML CUP PEG SCH (13:18)
[2017-03-26] MEDS: WARFARIN SOD 3 MG TAB PO SCH (14:56)
--- NOTE | 2017-03-26 15:13 | HHI.PR ---
Subjective Remarks ass low grade temp , hgb 6.8 OPENS EYES NO DISTRESS o2 sat 95%ON TTUBE small cell CA of urinary bladder Objective Vital Signs Date Time Temp Pulse Resp B/P (MAP) Pulse Ox O2 Delivery O2 Flow Rate FiO2 03/26/17 10:50 97 Trach Collar 6.00 28 03/26/17 08:00 96.3 102 17 119/74 (89) 100 03/26/17 07:42 100 T-Piece 4.00 28 03/26/17 04:00 98.7 103 18 118/74 (89) 99 03/26/17 00:00 98.4 101 18 115/72 (86) 100 03/26/17 00:00 100 Trach Collar 5.00 28 03/25/17 20:00 96.0 91 18 108/69 (82) 97 03/25/17 20:00 100 Trach Collar 5.00 28 03/25/17 19:10 100 Trach Collar 5.00 28 03/25/17 18:50 96.7 97 20 113/74 (87) 99 I/O 03/25/17 03/25/17 03/25/17 03/26/17 03/26/17 03/26/17 07:00 15:00 23:00 07:00 15:00 23:00 Intake Total 1644 ml 200 ml Output Total 400 ml 700 ml 1000 ml Balance 1244 ml -500 ml -1000 ml Intake Oral 0 ml IV Total 482 ml 200 ml Tube Feeding 862 ml Tube Irrigant 300 ml Output Urine Total 400 ml 700 ml 1000 ml # Bowel Movements 0 2 2 Result Diagram: 03/26/17 0648 03/26/17 0648 Procedures 07/22/2016 Wide excision of sacral skin wound, biopsy of the cavity lining and debridement. PEG removal and Gj tube placement 07/29/16 VAC changes- M-W-F 10/23/16, 11/18, 12/31- GJ tube replacement 01/02/16 PEG placement 01/02/16 tracheostomy 02/25/17 PEG replacement 03/03/17 Cystoscopy and palliative transurethral resection of bladder tumor greater than 5cm originating from the right bladder wall Objective Remarks GENERAL: SKIN: Warm and dry. HEAD: Atraumatic. Normocephalic. EYES: Pupils equal and round. No scleral icterus. No injection or drainage. ENT: No nasal bleeding or discharge. Mucous membranes pink and moist. NECK: Trachea midline. No JVD. CARDIOVASCULAR: Regular rate and rhythm. RESPIRATORY: No accessory muscle use. Clear to auscultation. Breath sounds equal bilaterally. GASTROINTESTINAL: Abdomen soft, non-tender, nondistended. Hepatic and splenic margins not palpable. MUSCULOSKELETAL: Extremities without clubbing, cyanosis, or edema. No obvious deformities. NEUROLOGICAL: Awake and alert. No obvious cranial nerve deficits. Motor grossly within normal limits. Five out of 5 muscle strength in the arms and legs. Normal speech. PSYCHIATRIC: Appropriate mood and affect; insight and judgment normal. Laboratory Tests Test 01/05/17 01/06/17 08:35 08:41 Red Blood Count 4.43 MIL/MM3 (4.50-5.90) Hemoglobin 9.9 GM/DL (13.0-17.0) Hematocrit 32.0 % (39.0-51.0) Mean Corpuscular Volume 72.1 FL (80.0-100.0) Mean Corpuscular Hemoglobin 22.3 PG (27.0-34.0) Mean Corpuscular Hemoglobin 30.9 % Concent (32.0-36.0) Red Cell Distribution Width 19.9 % (11.6-17.2) Sodium Level 134 MEQ/L 133 MEQ/L (136-145) (136-145) Random Glucose 136 MG/DL 132 MG/DL (74-106) (74-106) Creatinine 0.59 MG/DL (0.60-1.30) GENERAL: SKIN: Warm and dry. HEAD: Atraumatic. Normocephalic. EYES: Pupils equal and round. No scleral icterus. No injection or drainage. ENT: No nasal bleeding or discharge. Mucous membranes pink and moist. NECK: Trachea midline. No JVD. TRACH. [place] CARDIOVASCULAR: Regular rate and rhythm. RESPIRATORY: No accessory muscle use. Clear to auscultation. Breath sounds equal bilaterally. GASTROINTESTINAL: Abdomen soft, non-tender, nondistended. Hepatic and splenic margins not palpable. MUSCULOSKELETAL: Extremities without clubbing, cyanosis, or edema. No obvious deformities. NEUROLOGICAL: Awake and alert. No obvious cranial nerve deficits. Motor grossly within normal limits. Five out of 5 muscle strength in the arms and legs. Normal speech. PSYCHIATRIC: Appropriate mood and affect; insight and judgment normal. Assessment and Plan Assessment and Plan impression respiratory failure CVA S/P TRACHEOSTOMY SMALL CELL CA OF THE URINARY BLADDER PLAN on antibiotics receiving packed red cells O2 NEEDED PULM. TOILET relieved RT TODAY Brandon Taylor MD Mar 26, 2017 15:13
--- NOTE | 2017-03-26 17:58 | HHI.PR ---
Subjective Remarks Patient's and mother at bedside. Overnight events discussed w RN. [facility] fu[facility] radiation therapy this am. no reported diarrhea. no reported respiratory distress. Objective Vitals Vital Signs Date Time Temp Pulse Resp B/P (MAP) Pulse Ox O2 Delivery O2 Flow Rate FiO2 03/26/17 16:00 96.3 103 18 115/74 (88) 99 03/26/17 10:50 97 Trach Collar 6.00 28 03/26/17 08:00 96.3 102 17 119/74 (89) 100 03/26/17 07:42 100 T-Piece 4.00 28 03/26/17 04:00 98.7 103 18 118/74 (89) 99 03/26/17 00:00 98.4 101 18 115/72 (86) 100 03/26/17 00:00 100 Trach Collar 5.00 28 03/25/17 20:00 96.0 91 18 108/69 (82) 97 03/25/17 20:00 100 Trach Collar 5.00 28 03/25/17 19:10 100 Trach Collar 5.00 28 03/25/17 18:50 96.7 97 20 113/74 (87) 99 I/O 03/25/17 03/25/17 03/25/17 03/26/17 03/26/17 03/26/17 07:00 15:00 23:00 07:00 15:00 23:00 Intake Total 1644 ml 200 ml Output Total 400 ml 700 ml 1000 ml Balance 1244 ml -500 ml -1000 ml Intake Oral 0 ml IV Total 482 ml 200 ml Tube Feeding 862 ml Tube Irrigant 300 ml Output Urine Total 400 ml 700 ml 1000 ml # Bowel Movements 0 2 2 Result Diagram: 03/26/17 0648 03/26/17 0648 Objective Remarks GENERAL: Non-verbal, lethargic, opens eyes to voice and command, tracking people in room. Not in acute distress. SKIN: Warm and dry. HEENT: Normocephalic. Pupils nonicteric. Nose without bleeding. Airway patent. NECK: Supple, trachea midline. T-tube in place, site clean, dry, intact. No JVD. CARDIOVASCULAR: Regular rate and rhythm. No murmur appreciated. RESPIRATORY: Breath sounds equal bilaterally. No accessory muscle use. Trach tube in place. Bedside monitor indicated oxygen saturation was 99%. Bilateral rhonchi. GASTROINTESTINAL: Abdomen soft, non-tender, nondistended. PEG tube noted,area around insertion is now clean with PEG tube feeds, PEG tube slides out easily. MUSCULOSKELETAL: No cyanosis, or edema. PSYCHIATRIC: Pt non-verbal. Procedures 07/22/2016 Wide excision of sacral skin wound, biopsy of the cavity lining and debridement. PEG removal and Gj tube placement 07/29/16 VAC changes- M-W-F 10/23/16, 11/18, 12/31- GJ tube replacement 01/02/16 PEG placement 01/02/16 tracheostomy 02/25/17 PEG replacement 03/03/17 Cystoscopy and palliative transurethral resection of bladder tumor greater than 5cm originating from the right bladder wall Medications and IVs Current Medications Medications (Trade) Dose Ordered Sig/Junior Route Start Time Stop Time Status Last Admin (NS Flush) 2 ml UNSCH PRN IVF 12/21/15 06:00 09/28/16 21:18 (Keppra Liq) 500 mg Q12HR TUBE 12/27/15 21:00 03/26/17 07:38 (Tylenol 650 Mg/ 20 ml Liq) 650 mg Q6H PRN TUBE 12/30/15 15:15 03/23/17 00:33 (Mycostatin Powder) 1 applic Q12HR TOPICAL 01/08/16 21:00 03/26/17 07:39 (Pill Splitter) 1 ea UNSCH PRN OTHER 01/14/16 08:30 (Acetic Acid 0.25% Irr Btl) 10 ml Q8HR IRRIGATION 02/05/16 16:00 03/26/17 14:11 (Paxil Liq) 20 mg DAILY@1900 PEG 03/12/16 19:00 Future hold 03/25/17 18:49 (Zofran Inj) 4 mg Q6HR PRN IV PUSH 04/14/16 19:45 03/16/17 16:00 (Xopenex Neb) 0.63 mg Q4HR NEB PRN NEB 05/05/16 12:00 03/25/17 14:22 (Aspirin) 325 mg DAILY TUBE 05/27/16 11:40 Future hold 03/26/17 07:37 (Baciguent Oint) 1 applic BID TOP 07/20/16 10:00 03/26/17 07:39 (Shelby Angel Williams) 1 spray BID NASAL 08/01/16 21:00 03/26/17 07:38 (Tears Naturale Opth Soln) 1 drop BID EACH EYE 09/05/16 21:00 03/26/17 07:38 (Morphine Inj) 1 mg Q24H PRN IV PUSH 09/17/16 14:30 10/22/16 02:00 (Dulcolax Supp) 10 mg DAILY PRN RECTAL 09/26/16 15:30 12/08/16 09:17 (Tylenol - Codeine 120-12 Liq) 5 ml Q4H PRN G-TUBE 12/27/16 15:30 03/24/17 20:58 (Imodium Liq) 2 mg Q6H PRN PEG 12/27/16 15:30 03/24/17 01:16 (Milk Of Magnesia Liq) 30 ml DAILY PRN PEG 12/27/16 15:30 02/11/17 08:46 (Milk Of Magnesia Liq) 30 ml DAILY PEG 12/28/16 09:00 Future Hold 01/19/17 08:44 (Senna Liq) 8.8 mg DAILY@1600 PEG 12/27/16 16:00 03/24/17 17:13 (Lactulose Liq) 30 ml DAILY PRN PEG 12/27/16 15:30 (Cardizem) 30 mg QID PEG 01/09/17 18:00 03/26/17 16:40 (D50w (Vial) Inj) 50 ml UNSCH PRN IV 01/09/17 16:00 (Glucagon Inj) 1 mg UNSCH PRN OTHER 01/09/17 16:00 (Prevacid Odt) 30 mg BID NG 01/26/17 21:00 03/26/17 07:37 (Ferrous Sulfate Liq) 300 mg DAILY PO 02/14/17 09:00 03/26/17 07:36 (Vitamin C) 1,000 mg DAILY PO 02/14/17 09:00 03/26/17 07:37 (Bacitracin Oint Packet) 0.9 gm DAILY TOPICAL 02/25/17 09:00 03/26/17 07:38 (Levsin) 0.25 mg Q8HR G-TUBE 03/18/17 22:00 03/26/17 14:11 Pharmacy Profile Note 0 ml @ 0 mls/hr UNSCH OTHER 03/19/17 15:30 Piperacillin Sod/ Tazobactam Sod 100 ml @ 200 mls/hr Q8H IV 03/24/17 14:00 03/26/17 14:11 (Coumadin) 3 mg DAILY@1600 PO 03/25/17 16:00 03/26/17 14:56 Urinary Catheter: Yes Assessment to: Continue Lopez insert reason: Measure Accurate Output Date of Insertion: Mar 03, 2017 Vascular Central Line Catheter: No A/P Problem List: (1) CVA (cerebral vascular accident) ICD Code: I63.9 - Cerebral infarction, unspecified Status: Acute (2) A-fib ICD Code: I48.91 - Unspecified atrial fibrillation Status: Chronic (3) DM (diabetes mellitus) ICD Code: E11.9 - Type 2 diabetes mellitus without complications Status: Chronic (4) Hyponatremia ICD Code: E87.1 - Hypo-osmolality and hyponatremia Status: Acute Assessment and Plan 60 year-old male with past medical history of paroxysmal A. fib, hypertension, stage III non-Hodgkin's lymphoma status post chemotherapy who came into the hospital with altered mental status. 1. PEG tube site cellulitis/Low grade fever -ID was consulted - wound culture positive for Kleb pneumo sensitive to Levaquin. - BCX negative - SP treatment with IV Levaquin x 5 days however there is still purulence observed. Continue wound care and will reculture site if fever. - A per Wound care recommendations. Cleanse around PEG tube site with normal saline and apply drain sponge around tube secure tube and drain sponge with medifix tape change as needed. Please use skin prep before applying adhesives to skin. Continue. 03/23 purulent discharge observed from PEG site - re ordered wound culture and will reconsult ID. 03/24 ID reconsulted recommendations pending. Patient with low grade fever overnight with a tmax of 99.7. Will start on Iv broad spectrum antibiotics ( Vancomycin and Zosyn IV), check blood cultures, CXR and urinalysis 03/25 UA (+) with urine culture growing gram negative rods. Continue IV zosyn and fu ID recommendations. blood cultures negative. Consult infectious GI to asses PEG tube. 03/26 GI recommendations pending regarding PEG tube. Continue IV zosyn for now. Urine ulture is growing psudomonas with > 100.000 CFU. Wound culture 2. 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 - CT of the abdomen showed bladder mass right posteriorly with apparent extravesical extension and clot formation. - Urology spoke with family member, daughter, states that he's not recommending biopsy of the bladder mass. However daughter insisted on biopsy. Patient s/p cystoscopy and palliative transurethral resection of bladder tumor greater than 5 cm originating from right bladder wall performed by Dr. Sewell . 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 - Oncology following - appreciate their assistance. Family requesting aggressive therapy. CT chest negative for malignancy. MRI completed. Patient is not a candidate for chemotherapy. Family has decided on palliative XRT treatment and would like it to start MIGEL. Consult placed for radiation oncology. - Palliative care following, appreciate their assistance. - Continue to flush lopez catheter PRN. Monitor for recurrence of hematuria 3. 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 Intermittently tracks with eyes. - Continue Keppra 500mg BID for seizure prophylaxis. Keppra level 17.8. - PT/OT signed off as patient is unable to participate. - On Paxil 20 by mouth daily for depression. - On acetaminophen with codeine for pain scale of 2-10. - Morphine 1 mg every 24 hours when necessary for dressing change 4. Chronic respiratory failure secondary to CVA - Status post tracheostomy. Continue pulmonary toilet and bronchodilators as needed. Continue trach care, suctioning. Increased secretions improved with scheduled Levsin. Decreased dosing of scheduled Levsin to q8h. - Trach changed to size #6 XLT on 01/09 - Duo nebs every 4 hours while awake - Pulmonary currently following, appreciate assistance. 5. Atrial fibrillation, controlled 6. Hypertension controlled. 7. Dyslipidemia - Continue rate control with Cardizem and metoprolol. - [id number] score 4 - Echocardiogram in November 2015 shows preserved ejection fraction. - 03/24 Coumadin discontinued secondary to bleeding from sacral wound. No active bleeding noted. Coumadin resumed Pharmacy to dose. INR supratherapeutic at 3.3. Hold coumadin and aspirin due to drop in hemoglobin. - No active bleeding noted. 8. History of non-Hodgkin's lymphoma - Status post brain biopsy on December 13 by neurosurgery. Pathology consistent with acute infarct without evidence of lymphoma. 9 Diabetes mellitus Type 2 - Hemoglobin A1c is 5.5. - Fingersticks have been stable and were DC'd 02/01/17 - 03/24 Blood sugar uncontrolled - Will resume Accu-Cheks and SSI with insulin NovoLog. 10. Decubitus ulcer stage IV - Status post wide excision of sacral skin and biopsy of the cavity lining with debridement on 07/22/16. - Continue wound care, twice-daily dressing changes. Wound care recommendations last updated 12/12/16. Continue pressure relief measures including turning and positioning. - Patient's family has declined a diverting colostomy. Previous Wound culture growing Klebsiella and Enterococcus Faecalis. Previously on Augmentin. - Wound care last saw patient on 02/25/17, no new recommendations continue packing with Betadine moistened rolled Janis and covered with ABD pad and paper tape to secure. - Continue to monitor. Continue pressure-relief. - Morphine 1 mg every 24 hours when necessary for dressing change - confirmed with nursing staff continued dressing changes BID 11. Protein calorie malnutrition 12. Gastroesophageal reflux disease 13. Gastric ulcer, reflux esophagitis 14. Diarrhea, negative for C. difficile. - EGD on 07/30/16 showed gastric ulcers. Continue on Prevacid 30 mg Q12. - G/J tube clogged, IR consulted to evaluate. Replaced on 02/25/17 - TF held 03/16 due to emesis. No recurrence. TF resumed yesterday - patient tolerating. [employer]ing [employer] Supervisor consulted to assist with rate/needs. Per their recommendations, Rec increasing TF'ing 10ml/hr Q 6hr, as tolerated, to goal rate 55ml/hr. Rec to discontinue the Ashish r/t pt has received Ashish for Rec dosing of 4-weeks to promote new tissue growth. - Continue bowel regimen with hold parameters, Lactinex and Imodium. (+)BM overnight x 1. - 03/23 patient with increased loose stools as per rn repeat C diff PCR - negative 15. Klebsiella/Pseudomonas/staph aureus HCAP 16. PSAE UTI - S/p Cefepime. Monitor for signs of infections. - strep pneumonia and Legionella urinary Ag is negative - C-diff PCR negative on 01/13 - 6/22 BC : Staph Epi, Urine cx: Pseudomonas, Sputum cx: Pseudomonas, kleb, Staph. - Patient was pancultured on 01/19 (Blood, sputum, urine) NGTD in urine and blood. Sputum + for pseudomonas. Likely colonization. 17. Hyponatremia - Sodium is slightly improved up to 133. Continue to monitor BMP. 18. Anemia - sp transfusion of 1 unit of PRBC on 03/24. Hemoglobin responded appropriately from 6.8 and 8.1. - Stool Hemoccult negative. - Continue to monitor cbc. - 03/26 hemoglobin stable 8.1 --> 7.9 19. Oliguria - Likely due to dehydration. - Improving with IV fluids and increased free water via PEG. - 03/26 Resume free water via PEG. DVT prophylaxis: Continue SCDs, On coumadin Discussed w RN and patient's mother and Discharge Planning Not cleared - patient with purulence on peg site and low grade fevers Problem Qualifiers (1) CVA (cerebral vascular accident): (2) DM (diabetes mellitus): Renny Kamara MD Mar 26, 2017 17:58
[2017-03-26] MEDS: PARoxetine HCL SUSP 20 MG/10 ML UDC PEG SCH (18:09)
--- NOTE | 2017-03-26 18:38 | HHI.IDPN ---
Subjective Subjective Remarks IDelayed entry no fever tolerating Tpiece Antibiotics zosyn Lines Peripheral IV Past Medical History Hypertension. Stage III non-Hodgkin's lymphoma. Diabetes mellitus. Paroxysmal atrial fibrillation. Brain biopsy in Nov, 2015. History of left arm surgery. 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 Vital Signs Date Time Temp Pulse Resp B/P (MAP) Pulse Ox O2 Delivery O2 Flow Rate FiO2 03/26/17 18:04 99 T-piece 6.00 28 03/26/17 18:03 99 T-piece 6.00 28 03/26/17 16:00 96.3 103 18 115/74 (88) 99 03/26/17 10:50 97 Trach Collar 6.00 28 03/26/17 08:00 96.3 102 17 119/74 (89) 100 03/26/17 07:42 100 T-Piece 4.00 28 03/26/17 04:00 98.7 103 18 118/74 (89) 99 03/26/17 00:00 98.4 101 18 115/72 (86) 100 03/26/17 00:00 100 Trach Collar 5.00 28 03/25/17 20:00 96.0 91 18 108/69 (82) 97 03/25/17 20:00 100 Trach Collar 5.00 28 03/25/17 19:10 100 Trach Collar 5.00 28 03/25/17 18:50 96.7 97 20 113/74 (87) 99 03/26/17 03/26/17 03/27/17 15:00 23:00 07:00 Intake Total 780 ml Output Total 800 ml Balance -20 ml Intake Oral 0 ml Tube Feeding 660 ml Tube Irrigant 120 ml Output Urine Total 800 ml # Bowel Movements 5 . Laboratory Tests Test 03/25/17 07:12 03/26/17 06:48 White Blood Count 5.3 TH/MM3 4.2 TH/MM3 Red Blood Count 3.53 MIL/MM3 3.49 MIL/MM3 Hemoglobin 8.1 GM/DL 7.9 GM/DL Hematocrit 25.7 % 25.5 % Mean Corpuscular Volume 72.7 FL 73.0 FL Mean Corpuscular Hemoglobin 23.1 PG 22.7 PG Mean Corpuscular Hemoglobin Concent 31.7 % 31.1 % Red Cell Distribution Width 21.2 % 21.4 % Platelet Count 94 TH/MM3 102 TH/MM3 Mean Platelet Volume 8.0 FL 7.9 FL Neutrophils (%) (Auto) 81.7 % Lymphocytes (%) (Auto) 10.2 % Monocytes (%) (Auto) 5.3 % Eosinophils (%) (Auto) 2.0 % Basophils (%) (Auto) 0.8 % Neutrophils # (Auto) 4.3 TH/MM3 Lymphocytes # (Auto) 0.5 TH/MM3 Monocytes # (Auto) 0.3 TH/MM3 Eosinophils # (Auto) 0.1 TH/MM3 Basophils # (Auto) 0.0 TH/MM3 CBC Comment AUTO DIFF Differential Comment AUTO DIFF CONFIRMED Platelet Estimate LOW Platelet Morphology Comment NORMAL Tear Drop Cells 1+ Ovalocytes 1+ Laboratory Tests Test 03/25/17 07:12 03/26/17 06:48 Blood Urea Nitrogen 13 MG/DL 12 MG/DL Creatinine 1.05 MG/DL 1.06 MG/DL Random Glucose 219 MG/DL 210 MG/DL Total Protein 7.7 GM/DL Albumin 1.9 GM/DL Calcium Level 8.3 MG/DL 8.4 MG/DL Phosphorus Level 2.0 MG/DL 2.4 MG/DL Magnesium Level 2.0 MG/DL 2.1 MG/DL Alkaline Phosphatase 94 U/L Aspartate Amino Transf (AST/SGOT) 65 U/L Alanine Aminotransferase (ALT/SGPT) 13 U/L Total Bilirubin 0.3 MG/DL Sodium Level 132 MEQ/L 133 MEQ/L Potassium Level 4.2 MEQ/L 4.4 MEQ/L Chloride Level 100 MEQ/L 100 MEQ/L Carbon Dioxide Level 25.4 MEQ/L 23.9 MEQ/L Anion Gap 7 MEQ/L 9 MEQ/L Estimat Glomerular Filtration Rate 72 ML/MIN 71 ML/MIN Microbiology Date/Time Source Procedure Growth Status 03/25/17 07:12 Blood Peripheral Aerobic Blood Culture - Preliminary NO GROWTH IN 1 DAY Resulted 03/25/17 07:12 Blood Peripheral Anaerobic Blood Culture - Preliminary NO GROWTH IN 1 DAY Resulted 03/25/17 07:00 Blood Peripheral Aerobic Blood Culture - Preliminary NO GROWTH IN 1 DAY Resulted 03/25/17 07:00 Blood Peripheral Anaerobic Blood Culture - Preliminary NO GROWTH IN 1 DAY Resulted 03/24/17 00:00 Stool Stool Stool Occult Blood (AISHA) - Final HEMOCCULT NEGATIVE Complete 03/24/17 17:50 Urine Catheterized Urine Urine Culture - Preliminary Pseudomonas Species Resulted Imaging Last Impressions Chest X-Ray 03/24/17 0000 Signed Impressions: Service Date/Time: Friday, March 24, 2017 12:37 - CONCLUSION: Minimal increase consolidation left base. No significant failure. Octavio Ramírez MD FACR Brain MRI 03/14/17 0000 Signed Impressions: Service Date/Time: Tuesday, March 14, 2017 12:41 - CONCLUSION: The signal abnormality and enhancement within the bilateral occipital lobes and colin have decreased since the prior examinations. No new abnormality is identified. There is no new enhancing area or signs of a recent ischemia. Glen Gordon MD Chest CT 03/10/17 0000 Signed Impressions: Service Date/Time: Friday, March 10, 2017 21:00 - CONCLUSION: 1. Periaortic soft tissue along the proximal descending thoracic aorta not previously seen. This represents either lymphomatous involvement or adjacent consolidated airspace disease. 2. Mild bilateral airspace disease 3. No evidence of significant lymphadenopathy involving the mediastinum, hilar regions, axillas or supraclavicular lore chain. 4. Tracheostomy tube in place. Ernesto Kulkarni MD Abdomen/Pelvis CT 02/27/17 0000 Signed Impressions: Service Date/Time: February 02:24 - CONCLUSION: 1. Abdominal aortic aneurysm. 2. Bladder mass is noted on the right posteriorly with apparent extravesical extension and clot formation. 3. Left renal cyst. 4. Left lower lobe atelectasis. 5. Large sacral decubitus ulcer with bony destruction and sclerosis of the sacrum mid to left lateral portion in the region of S3 and inferiorly which would suggest chronic osteomyelitis in the appropriate clinical setting. Rajan Granados MD Soft Tissue Ultrasound 02/26/17 0000 Signed Impressions: Service Date/Time: Sunday, February 26, 2017 12:52 - CONCLUSION: 1. Just inferior to the G-tube in the left abdomen, there is a superficial 3.8 x 2.9 0.9 cm complex fluid collection in the subcutaneous tissues. 2. Findings are nonspecific. This could represent a small seroma or abscess. Would consider CT scan of the abdomen without contrast for further evaluation to determine if there is intraperitoneal extension. Bobby Gray MD Gastrostomy Tube Placement 02/25/17 0000 Signed Impressions: Service Date/Time: Saturday, February 25, 2017 14:19 - CONCLUSION: Uncomplicated exchange of gastroenteric feeding tube for gastrostomy tube as above. Positioning confirmed. The tube can be used immediately. Glen Zamora MD Tube Change 02/14/17 0000 Signed Impressions: Service Date/Time: Tuesday, February 14, 2017 00:00 - CONCLUSION: Uncomplicated gastrojejunostomy tube exchange as above. Scott Griffin MD Head CT 01/09/17 0000 Signed Impressions: Service Date/Time: December 17:43 - CONCLUSION: 1. No acute hemorrhage or mass effect. 2. 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 3. Atrophy. Gerald Mukherjee MD CT Angiography 01/09/17 0000 Signed Impressions: Service Date/Time: December 17:49 - CONCLUSION: 1. No evidence of pulmonary emboli. 2. Patchy consolidation in both posterior lower lobes right greater than left. This could represent pneumonia. 3. 2 small noncalcified pulmonary nodules which are nonspecific finding. Short-term CT followup is recommended beginning in 6 months with a noncontrast outpatient CT. Gerald Mukherjee MD Tube Check 12/04/16 0000 Signed Impressions: Service Date/Time: Sunday, December 04, 2016 17:58 - CONCLUSION: Uncomplicated tube injection as above. the tube is in good position and functions normally. Moises Ramírez MD Abdomen X-Ray 08/31/16 0000 Signed Impressions: Service Date/Time: Wednesday, August 31, 2016 16:36 - CONCLUSION: 1. No acute findings. Mild constipation. Durga Dotson MD Head Magnetic Resonance Angiography 03/05/16 0000 Signed Impressions: Service Date/Time: Saturday, March 05, 2016 09:26 - CONCLUSION: Persistent high-grade subtotal occlusive stenotic lesions in the distal right vertebral artery and proximal basilar artery with significant improvement in flow and recanalization following initial presentation of thrombosis. Stable interstitial circulation without significant stenosis. Ernesto Kulkarni MD Neck Magnetic Resonance Angiography 12/22/15 1445 Signed Impressions: Service Date/Time: Tuesday, December 22, 2015 09:22 - CONCLUSION: Variant origin of the left vertebral artery from the aortic arch. No evidence of carotid stenosis. Glen Zamora MD Head/Brain Mag Res Venography 12/22/15 0000 Signed Impressions: Service Date/Time: Tuesday, December 22, 2015 09:22 - CONCLUSION: Normal MRV. Jonel Jones Jr., MD Physical Exam GENERAL: eyes opened , NAD SKIN: Warm to touch and dry. No generalized rash HEENT: [place] conjunctiva. . No scleral icterus. No injection or drainage. Mucous membranes pink and moist. NECK: Tracheostomy site looks okay. No secretions in the tubings noted CARDIOVASCULAR: Regular rate and rhythm. No murmur or rub. RESPIRATORY: clear to auscultation ABDOMEN: Soft, obese, non-tender, not distended. PEG site with small area of macerated scin, minimal thin drainage - small amount BS (+) normoactive EXTREMITIES: No clubbing, cyanosis. MIld pedal edema. Warm, and well perfused NEUROLOGICAL: resting , not following. Eyes opened, tracks MS is at b/l PSYCH: Unable to assess ; lopez in place, urine looks clear , light yellow LINE: Peripheral IV with no evidence of infection Assessment & Plan Remarks IMPRESSION Fever sepsis CVA, with significant neurologic sequela Hx NHL PSAE in urine likely colonization. Minimal perihilar infiltrate is present stage IV decub with no e/o infx Superficial appaering PEG anne marie infection, sp treatment looks better, appears just irritation now - culture is polimicronbial likely cw colonisation RECOMMENDATION cont zosyn for now repeat blood cultures if spikes again fu urine clx dw mother @ bs Violetta Alvarez MD Mar 26, 2017 18:38
[2017-03-26] MEDS: LOPERAMIDE HCL SOLN 2 MG/10 ML UDC PEG PRN (21:24)
[2017-03-26] MEDS: INSULIN ASPART SUPPLEMENTAL SCALE SQ SCH (22:12)
[2017-03-27] VITALS (7 sets, daily range): BP systolic 102–127; BP diastolic 68–82; PULSE 106–121; RESP 20–21; TEMP 97–99; O2SAT 95–100
[2017-03-27] MEDS: PIPERACIL-TAZO 4.5 GM PREMIX 100 ML IV SCH ×3 (06:14→21:13)
[2017-03-27] MEDS: ACETIC ACID 0.25% SOLN 1000 ML IRR BTL IRRIGATION SCH ×3 (06:15→21:31)
[2017-03-27] MEDS: HYOSCYAMINE 0.125 MG TAB G-TUBE SCH ×3 (06:15→21:13)
[2017-03-27] MEDS: INSULIN ASPART SUPPLEMENTAL SCALE SQ SCH ×4 (06:25→21:32)
[2017-03-27 07:16] LABS: PROTHROMBIN TIME - PATIENT 35.1 SEC (9.8-11.6)
[2017-03-27] MEDS: DILTIAZEM HCL 30 MG TAB PEG SCH ×4 (07:34→21:12)
[2017-03-27] MEDS: SODIUM CHLORIDE 0.65% NASAL SPRAY 45 ML BTL NASAL SCH ×2 (07:35→21:00)
[2017-03-27] MEDS: ARTIFICIAL TEARS OPTH SOLN 15 ML BTL EACH EYE SCH ×2 (07:36→21:19)
[2017-03-27] MEDS: NYSTATIN 100,000 U/GM PWD 15 GM BTL TOPICAL SCH ×2 (07:36→21:19)
[2017-03-27] MEDS: ASCORBIC ACID 500 MG TAB PO SCH (07:37)
[2017-03-27] MEDS: ASPIRIN 325 MG TAB TUBE SCH (07:38)
[2017-03-27] MEDS: FERROUS SULFATE 300 MG /5ML UDC PO SCH (07:38)
[2017-03-27] MEDS: BACITRACIN TOP OINT 15 GM TUBE TOP SCH ×2 (07:38→21:00)
[2017-03-27] MEDS: BACITRACIN OINT 0.9 GM PKT TOPICAL SCH (07:38)
[2017-03-27] MEDS: LANSOPRAZOLE SOLUTAB 30 MG TAB NG SCH ×2 (07:38→21:13)
[2017-03-27] MEDS: levETIRAcetam 500 MG/5 ML UDC TUBE SCH ×2 (07:39→21:12)
[2017-03-27] MEDS: SODIUM CHLORIDE 0.9% FLUSH 5 ML FLUSH IVF PRN (07:40)
--- NOTE | 2017-03-27 15:27 | HHI.PR ---
Subjective Remarks Patient is non verbal no major overnight events afebrile mother reported 4 BM's yesterday that were greenish Objective Vitals Vital Signs Date Time Temp Pulse Resp B/P (MAP) Pulse Ox O2 Delivery O2 Flow Rate FiO2 03/27/17 12:00 97.9 112 20 102/68 (79) 99 03/27/17 09:08 97 T-piece 28 03/27/17 08:00 99.0 121 20 99 03/27/17 07:36 99 T-Piece 5.00 28 03/27/17 07:32 110/72 (85) 03/27/17 00:00 97.0 106 20 119/71 (87) 100 03/26/17 20:00 96.6 104 21 116/70 (85) 95 03/26/17 18:04 99 T-piece 6.00 28 03/26/17 18:03 99 T-piece 6.00 28 03/26/17 16:00 96.3 103 18 115/74 (88) 99 I/O 03/26/17 03/26/17 03/26/17 03/27/17 03/27/17 03/27/17 06:59 14:59 22:59 06:59 14:59 22:59 Intake Total 1140 ml Output Total 1000 ml 1200 ml 500 ml Balance -1000 ml -60 ml -500 ml Intake Oral 360 ml Tube Feeding 660 ml Tube Irrigant 120 ml Output Urine Total 1000 ml 1200 ml 500 ml Stool Total 0 ml # Voids 2 # Bowel Movements 2 5 Result Diagram: 03/26/17 0648 03/26/17 0648 Imaging Last Impressions Chest X-Ray 03/24/17 0000 Signed Impressions: Service Date/Time: Friday, March 24, 2017 12:37 - CONCLUSION: Minimal increase consolidation left base. No significant failure. Octavio Ramírez MD FACR Brain MRI 03/14/17 0000 Signed Impressions: Service Date/Time: Tuesday, March 14, 2017 12:41 - CONCLUSION: The signal abnormality and enhancement within the bilateral occipital lobes and colin have decreased since the prior examinations. No new abnormality is identified. There is no new enhancing area or signs of a recent ischemia. Glen Gordon MD Chest CT 03/10/17 0000 Signed Impressions: Service Date/Time: Friday, March 10, 2017 21:00 - CONCLUSION: 1. Periaortic soft tissue along the proximal descending thoracic aorta not previously seen. This represents either lymphomatous involvement or adjacent consolidated airspace disease. 2. Mild bilateral airspace disease 3. No evidence of significant lymphadenopathy involving the mediastinum, hilar regions, axillas or supraclavicular lore chain. 4. Tracheostomy tube in place. Ernesto Kulkarni MD Abdomen/Pelvis CT 02/27/17 0000 Signed Impressions: Service Date/Time: February 02:24 - CONCLUSION: 1. Abdominal aortic aneurysm. 2. Bladder mass is noted on the right posteriorly with apparent extravesical extension and clot formation. 3. Left renal cyst. 4. Left lower lobe atelectasis. 5. Large sacral decubitus ulcer with bony destruction and sclerosis of the sacrum mid to left lateral portion in the region of S3 and inferiorly which would suggest chronic osteomyelitis in the appropriate clinical setting. Rajan Granados MD Soft Tissue Ultrasound 02/26/17 0000 Signed Impressions: Service Date/Time: Sunday, February 26, 2017 12:52 - CONCLUSION: 1. Just inferior to the G-tube in the left abdomen, there is a superficial 3.8 x 2.9 0.9 cm complex fluid collection in the subcutaneous tissues. 2. Findings are nonspecific. This could represent a small seroma or abscess. Would consider CT scan of the abdomen without contrast for further evaluation to determine if there is intraperitoneal extension. Bobby Gray MD Gastrostomy Tube Placement 02/25/17 0000 Signed Impressions: Service Date/Time: Saturday, February 25, 2017 14:19 - CONCLUSION: Uncomplicated exchange of gastroenteric feeding tube for gastrostomy tube as above. Positioning confirmed. The tube can be used immediately. Glen Zamora MD Tube Change 02/14/17 0000 Signed Impressions: Service Date/Time: Tuesday, February 14, 2017 00:00 - CONCLUSION: Uncomplicated gastrojejunostomy tube exchange as above. Scott Griffin MD Head CT 01/09/17 0000 Signed Impressions: Service Date/Time: December 17:43 - CONCLUSION: 1. No acute hemorrhage or mass effect. 2. 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 3. Atrophy. Gerald Mukherjee MD CT Angiography 01/09/17 0000 Signed Impressions: Service Date/Time: December 17:49 - CONCLUSION: 1. No evidence of pulmonary emboli. 2. Patchy consolidation in both posterior lower lobes right greater than left. This could represent pneumonia. 3. 2 small noncalcified pulmonary nodules which are nonspecific finding. Short-term CT followup is recommended beginning in 6 months with a noncontrast outpatient CT. Gerald Mukherjee MD Tube Check 12/04/16 0000 Signed Impressions: Service Date/Time: Sunday, December 04, 2016 17:58 - CONCLUSION: Uncomplicated tube injection as above. the tube is in good position and functions normally. Moises Ramírez MD Abdomen X-Ray 08/31/16 0000 Signed Impressions: Service Date/Time: Wednesday, August 31, 2016 16:36 - CONCLUSION: 1. No acute findings. Mild constipation. Durga Dotson MD Head Magnetic Resonance Angiography 03/05/16 0000 Signed Impressions: Service Date/Time: Saturday, March 05, 2016 09:26 - CONCLUSION: Persistent high-grade subtotal occlusive stenotic lesions in the distal right vertebral artery and proximal basilar artery with significant improvement in flow and recanalization following initial presentation of thrombosis. Stable interstitial circulation without significant stenosis. Ernesto Kulkarni MD Neck Magnetic Resonance Angiography 12/22/15 1445 Signed Impressions: Service Date/Time: Tuesday, December 22, 2015 09:22 - CONCLUSION: Variant origin of the left vertebral artery from the aortic arch. No evidence of carotid stenosis. Glen Zamora MD Head/Brain Mag Res Venography 12/22/15 0000 Signed Impressions: Service Date/Time: Tuesday, December 22, 2015 09:22 - CONCLUSION: Normal MRV. Jonel Jones Jr., MD Objective Remarks GENERAL: Non-verbal, lethargic, opens eyes to voice and command, tracking people in room. Not in acute distress. SKIN: Warm and dry. HEENT: Normocephalic. Pupils nonicteric. Nose without bleeding. Airway patent. NECK: Supple, trachea midline. T-tube in place, site clean, dry, intact. No JVD. CARDIOVASCULAR: Regular rate and rhythm. No murmur appreciated. RESPIRATORY: Breath sounds equal bilaterally. No accessory muscle use. Trach tube in place. Bedside monitor indicated oxygen saturation was 99%. Bilateral rhonchi. GASTROINTESTINAL: Abdomen soft, non-tender, nondistended. PEG tube noted,area around insertion is now clean with PEG tube feeds, PEG tube slides out easily. MUSCULOSKELETAL: No cyanosis, or edema. PSYCHIATRIC: Pt non-verbal. Procedures 07/22/2016 Wide excision of sacral skin wound, biopsy of the cavity lining and debridement. PEG removal and Gj tube placement 07/29/16 VAC changes- M-W-F 10/23/16, 11/18, 12/31- GJ tube replacement 01/02/16 PEG placement 01/02/16 tracheostomy 02/25/17 PEG replacement 03/03/17 Cystoscopy and palliative transurethral resection of bladder tumor greater than 5cm originating from the right bladder wall Medications and IVs Current Medications Medications (Trade) Dose Ordered Sig/Junior Route Start Time Stop Time Status Last Admin (NS Flush) 2 ml UNSCH PRN IVF 12/21/15 06:00 03/27/17 07:40 (Keppra Liq) 500 mg Q12HR TUBE 12/27/15 21:00 03/27/17 07:39 (Tylenol 650 Mg/ 20 ml Liq) 650 mg Q6H PRN TUBE 12/30/15 15:15 03/23/17 00:33 (Mycostatin Powder) 1 applic Q12HR TOPICAL 01/08/16 21:00 03/27/17 07:36 (Pill Splitter) 1 ea UNSCH PRN OTHER 01/14/16 08:30 (Acetic Acid 0.25% Irr Btl) 10 ml Q8HR IRRIGATION 02/05/16 16:00 03/27/17 14:38 (Paxil Liq) 20 mg DAILY@1900 PEG 03/12/16 19:00 Future hold 03/26/17 18:09 (Zofran Inj) 4 mg Q6HR PRN IV PUSH 04/14/16 19:45 03/16/17 16:00 (Xopenex Neb) 0.63 mg Q4HR NEB PRN NEB 05/05/16 12:00 03/25/17 14:22 (Aspirin) 325 mg DAILY TUBE 05/27/16 11:40 Future hold 03/27/17 07:38 (Baciguent Oint) 1 applic BID TOP 07/20/16 10:00 03/27/17 07:38 ([place]) 1 spray BID NASAL 08/01/16 21:00 03/27/17 07:35 (Tears Naturale Opth Soln) 1 drop BID EACH EYE 09/05/16 21:00 03/27/17 07:36 (Morphine Inj) 1 mg Q24H PRN IV PUSH 09/17/16 14:30 10/22/16 02:00 (Dulcolax Supp) 10 mg DAILY PRN RECTAL 09/26/16 15:30 12/08/16 09:17 (Tylenol - Codeine 120-12 Liq) 5 ml Q4H PRN G-TUBE 12/27/16 15:30 03/24/17 20:58 (Imodium Liq) 2 mg Q6H PRN PEG 12/27/16 15:30 03/26/17 21:24 (Milk Of Magnesia Liq) 30 ml DAILY PRN PEG 12/27/16 15:30 02/11/17 08:46 (Milk Of Magnesia Liq) 30 ml DAILY PEG 12/28/16 09:00 Future Hold 01/19/17 08:44 (Senna Liq) 8.8 mg DAILY@1600 PEG 12/27/16 16:00 Future Hold 03/24/17 17:13 (Lactulose Liq) 30 ml DAILY PRN PEG 12/27/16 15:30 (Cardizem) 30 mg QID PEG 01/09/17 18:00 03/26/17 21:24 (D50w (Vial) Inj) 50 ml UNSCH PRN IV 01/09/17 16:00 (Glucagon Inj) 1 mg UNSCH PRN OTHER 01/09/17 16:00 (Prevacid Odt) 30 mg BID NG 01/26/17 21:00 03/27/17 07:38 (Ferrous Sulfate Liq) 300 mg DAILY PO 02/14/17 09:00 03/27/17 07:38 (Vitamin C) 1,000 mg DAILY PO 02/14/17 09:00 03/27/17 07:37 (Bacitracin Oint Packet) 0.9 gm DAILY TOPICAL 02/25/17 09:00 03/27/17 07:38 (Levsin) 0.25 mg Q8HR G-TUBE 03/18/17 22:00 03/27/17 14:37 Pharmacy Profile Note 0 ml @ 0 mls/hr UNSCH OTHER 03/19/17 15:30 Piperacillin Sod/ Tazobactam Sod 100 ml @ 200 mls/hr Q8H IV 03/24/17 14:00 03/27/17 14:37 (Coumadin) 3 mg DAILY@1600 PO 03/25/17 16:00 Future Hold 03/26/17 14:56 (NovoLOG SUPPLEMENTAL SCALE) 1 ACHS SLIDING SCALE SQ 03/26/17 21:00 03/27/17 11:40 (D50w (Vial) Inj) 50 ml UNSCH PRN IV PUSH 03/26/17 18:15 (Glucagon Inj) 1 mg UNSCH PRN OTHER 03/26/17 18:15 Urinary Catheter: No Date of Insertion: Mar 03, 2017 Vascular Central Line Catheter: No A/P Problem List: (1) CVA (cerebral vascular accident) ICD Code: I63.9 - Cerebral infarction, unspecified Status: Acute (2) A-fib ICD Code: I48.91 - Unspecified atrial fibrillation Status: Chronic (3) DM (diabetes mellitus) ICD Code: E11.9 - Type 2 diabetes mellitus without complications Status: Chronic (4) Hyponatremia ICD Code: E87.1 - Hypo-osmolality and hyponatremia Status: Acute Assessment and Plan 60 year-old male with past medical history of paroxysmal A. fib, hypertension, stage III non-Hodgkin's lymphoma status post chemotherapy who came into the hospital with altered mental status. 1. PEG tube site cellulitis/Low grade fever -ID was consulted - wound culture positive for Kleb pneumo sensitive to Levaquin. - BCX negative - SP treatment with IV Levaquin x 5 days however there is still purulence observed. Continue wound care and will reculture site if fever. - A per Wound care recommendations. Cleanse around PEG tube site with normal saline and apply drain sponge around tube secure tube and drain sponge with medifix tape change as needed. Please use skin prep before applying adhesives to skin. Continue. 03/23 purulent discharge observed from PEG site - re ordered wound culture and will reconsult ID. 03/24 ID reconsulted recommendations pending. Patient with low grade fever overnight with a tmax of 99.7. Will start on Iv broad spectrum antibiotics ( Vancomycin and Zosyn IV), check blood cultures, CXR and urinalysis 03/25 UA (+) with urine culture growing gram negative rods. Continue IV zosyn and fu ID recommendations. blood cultures negative. Consult infectious GI to asses PEG tube. 03/26 GI recommendations pending regarding PEG tube. Continue IV zosyn for now. 03/27 No fevers. Continue antibiotics as per ID. Continue Zosyn, repeat cultures if febrile. Urine culture is growing pseudomonas. wum=nd culture growing MDR pseudomonas. 2. 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 - CT of the abdomen showed bladder mass right posteriorly with apparent extravesical extension and clot formation. - Urology spoke with family member, daughter, states that he's not recommending biopsy of the bladder mass. However daughter insisted on biopsy. Patient s/p cystoscopy and palliative transurethral resection of bladder tumor greater than 5 cm originating from right bladder wall performed by Dr. Sewell . 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 - Oncology following - appreciate their assistance. Family requesting aggressive therapy. CT chest negative for malignancy. MRI completed. Patient is not a candidate for chemotherapy. Family has decided on palliative XRT treatment and would like it to start MIGEL. Consult placed for radiation oncology. - Palliative care following, appreciate their assistance. - Continue to flush lopez catheter PRN. Monitor for recurrence of hematuria - Patient is currently undergoing radiation therapy. Monitor for side effects. 3. 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 Intermittently tracks with eyes. - Continue Keppra 500mg BID for seizure prophylaxis. Keppra level 17.8. - PT/OT signed off as patient is unable to participate. - On Paxil 20 by mouth daily for depression. - On acetaminophen with codeine for pain scale of 2-10. - Morphine 1 mg every 24 hours when necessary for dressing change 4. Chronic respiratory failure secondary to CVA - Status post tracheostomy. Continue pulmonary toilet and bronchodilators as needed. Continue trach care, suctioning. Increased secretions improved with scheduled Levsin. Decreased dosing of scheduled Levsin to q8h. - Trach changed to size #6 XLT on 01/09 - Duo nebs every 4 hours while awake - Pulmonary currently following, appreciate assistance. 5. Atrial fibrillation, controlled 6. Hypertension controlled. 7. Dyslipidemia - Continue rate control with Cardizem and metoprolol. - [id number] score 4 - Echocardiogram in November 2015 shows preserved ejection fraction. - 03/24 Coumadin discontinued secondary to bleeding from sacral wound. No active bleeding noted. Coumadin resumed Pharmacy to dose. INR supratherapeutic at 3.3. Hold coumadin and aspirin due to drop in hemoglobin. - No active bleeding noted. Therapeutic INR at 3.0. Pharmacy dosing. 8. History of non-Hodgkin's lymphoma - Status post brain biopsy on December 13 by neurosurgery. Pathology consistent with acute infarct without evidence of lymphoma. 9 Diabetes mellitus Type 2 - Hemoglobin A1c is 5.5. - Fingersticks have been stable and were DC'd 02/01/17 - 03/24 Blood sugar uncontrolled - Will resume Accu-Cheks and SSI with insulin NovoLog. - 03/27 Blood sugar severely elevated in the 200's. Will start SQ Levir 5 units SQ BID. continue SSI with insulin Novolog. 10. Decubitus ulcer stage IV - Status post wide excision of sacral skin and biopsy of the cavity lining with debridement on 07/22/16. - Continue wound care, twice-daily dressing changes. Wound care recommendations last updated 12/12/16. Continue pressure relief measures including turning and positioning. - Patient's family has declined a diverting colostomy. Previous Wound culture growing Klebsiella and Enterococcus Faecalis. Previously on Augmentin. - Wound care last saw patient on 02/25/17, no new recommendations continue packing with Betadine moistened rolled Janis and covered with ABD pad and paper tape to secure. - Continue to monitor. Continue pressure-relief. - Morphine 1 mg every 24 hours when necessary for dressing change - confirmed with nursing staff continued dressing changes BID 11. Protein calorie malnutrition 12. Gastroesophageal reflux disease 13. Gastric ulcer, reflux esophagitis 14. Diarrhea, negative for C. difficile. - EGD on 07/30/16 showed gastric ulcers. Continue on Prevacid 30 mg Q12. - G/J tube clogged, IR consulted to evaluate. Replaced on 02/25/17 - TF held 03/16 due to emesis. No recurrence. TF resumed yesterday - patient tolerating. Vat Packer consulted to assist with rate/needs. Per their recommendations, Rec increasing TF'ing 10ml/hr Q 6hr, as tolerated, to goal rate 55ml/hr. Rec to discontinue the Ashish r/t pt has received Ashish for Rec dosing of 4-weeks to promote new tissue growth. - Continue bowel regimen with hold parameters, Lactinex and Imodium. (+)BM overnight x 1. - 03/23 patient with increased loose stools as per rn repeat C diff PCR - negative 15. Klebsiella/Pseudomonas/staph aureus HCAP 16. PSAE UTI - S/p Cefepime. Monitor for signs of infections. - strep pneumonia and Legionella urinary Ag is negative - C-diff PCR negative on 01/13 - 01/09 BC : Staph Epi, Urine cx: Pseudomonas, Sputum cx: Pseudomonas, kleb, Staph. - Patient was pancultured on 01/19 (Blood, sputum, urine) NGTD in urine and blood. Sputum + for pseudomonas. Likely colonization. 17. Hyponatremia - Sodium is slightly improved up to 133. Continue to monitor BMP. 18. Anemia - sp transfusion of 1 unit of PRBC on 03/24. Hemoglobin responded appropriately from 6.8 and 8.1. - Stool Hemoccult negative. - Continue to monitor cbc. - 03/26 hemoglobin stable 8.1 --> 7.9 19. Oliguria - Likely due to dehydration. - Improving with IV fluids and increased free water via PEG. - 03/27 Continue free water. Fu BMP. DVT prophylaxis: Continue SCDs, On coumadin Discussed w mother at bedside. Discharge Planning Patient not medically cleared - still on Iv zosyn Problem Qualifiers (1) CVA (cerebral vascular accident): (2) DM (diabetes mellitus): Renny Kamara MD Mar 27, 2017 15:27
[2017-03-27] MEDS: PARoxetine HCL SUSP 20 MG/10 ML UDC PEG SCH (17:23)
--- NOTE | 2017-03-27 18:25 | RADRPT ---
EXAM DATE/TIME: 03/27/2017 17:47 [facility] COMPARISON: CHEST SINGLE AP, March 24, 2017, 12:37. INDICATIONS : Mass noted on side of ribs MEDICAL HISTORY : Hypercholesterolemia. Hypertension. Cerebrovascular accident. Atrial SURGICAL HISTORY : None. ENCOUNTER: Subsequent ACUITY: 3 days PAIN SCORE: Non-responsive. LOCATION: chest FINDINGS: A single view of the chest demonstrates the lungs to be hypoinflated with some resolving atelectatic changes in the left base. Minimal atelectasis persists above both hemidiaphragms, however. No conflue nt infiltrate or effusion. Accounting for the low lung volumes, heart size is normal. Tracheostomy tu be is unchanged in position with the tip at the clavicular heads. Osseous structures are intact. No r adiopaque mass lesion identified in the region of the ribs. CONCLUSION: 1. Hypoinflation with minimal bibasilar atelectatic changes. This does show some improvement in the l eft base, however. 2. Otherwise negative. Bobby Gray MD on March 27, 2017 at 18:21 Board Certified Radiologist. This report was verified electronically.
[2017-03-27] MEDS: INSULIN DETEMIR 100 UNITS/ML VIAL SQ SCH (21:17)
[2017-03-28] VITALS (8 sets, daily range): BP systolic 106–142; BP diastolic 69–87; PULSE 105–122; RESP 18–22; TEMP 95.6–99; O2SAT 96–100
[2017-03-28] MEDS: HYOSCYAMINE 0.125 MG TAB G-TUBE SCH ×3 (06:20→21:38)
[2017-03-28] MEDS: ACETIC ACID 0.25% SOLN 1000 ML IRR BTL IRRIGATION SCH ×3 (06:21→21:58)
[2017-03-28] MEDS: PIPERACIL-TAZO 4.5 GM PREMIX 100 ML IV SCH ×3 (06:25→21:58)
[2017-03-28] MEDS: INSULIN ASPART SUPPLEMENTAL SCALE SQ SCH ×4 (06:39→23:24)
[2017-03-28] MEDS: ASCORBIC ACID 500 MG TAB PO SCH (07:36)
[2017-03-28] MEDS: DILTIAZEM HCL 30 MG TAB PEG SCH ×4 (07:36→21:00)
[2017-03-28] MEDS: ASPIRIN 325 MG TAB TUBE SCH (07:37)
[2017-03-28] MEDS: FERROUS SULFATE 300 MG /5ML UDC PO SCH (07:37)
[2017-03-28] MEDS: levETIRAcetam 500 MG/5 ML UDC TUBE SCH ×2 (07:37→21:00)
[2017-03-28] MEDS: NYSTATIN 100,000 U/GM PWD 15 GM BTL TOPICAL SCH ×2 (07:49→21:56)
[2017-03-28] MEDS: BACITRACIN TOP OINT 15 GM TUBE TOP SCH ×2 (07:49→21:00)
[2017-03-28] MEDS: BACITRACIN OINT 0.9 GM PKT TOPICAL SCH (07:49)
[2017-03-28] MEDS: INSULIN DETEMIR 100 UNITS/ML VIAL SQ SCH ×2 (07:49→21:00)
[2017-03-28] MEDS: LANSOPRAZOLE SOLUTAB 30 MG TAB NG SCH ×2 (07:50→21:39)
[2017-03-28] MEDS: SODIUM CHLORIDE 0.65% NASAL SPRAY 45 ML BTL NASAL SCH ×2 (07:50→21:00)
[2017-03-28] MEDS: ARTIFICIAL TEARS OPTH SOLN 15 ML BTL EACH EYE SCH ×2 (07:50→21:56)
[2017-03-28 08:13] LABS: INTERNATIONAL NORMALIZED RATIO 2.3 RATIO; PROTHROMBIN TIME - PATIENT 26.8 SEC (9.8-11.6)
[2017-03-28 08:27] LABS: AUTOMATED NEUTROPHIL # 3.9 TH/MM3 (1.8-7.7); BASOPHIL % 0.7 % (0.0-2.0); EOSINOPHIL # 0.1 TH/MM3 (0-0.4); EOSINOPHIL % 1.6 % (0.0-4.0); HEMATOCRIT 25.6 % (39.0-51.0); LYMPHOCYTE # 0.7 TH/MM3 (1.0-4.8); MEAN CELL VOLUME 71.8 FL (80.0-100.0); MEAN CORPUSCULAR HEMOGLOBIN 22.2 PG (27.0-34.0); MONO % 5.4 % (0.0-8.0); NEUT % 78.3 % (16.0-70.0); PLATELET COUNT 104 TH/MM3 (150-450); RED BLOOD COUNT 3.57 MIL/MM3 (4.50-5.90); RED CELL DISTRIBUTION WIDTH 21.2 % (11.6-17.2)
[2017-03-28 08:28] LABS: HEMO FLAGS AUTO DIFF
[2017-03-28 08:33] LABS: ANION GAP 10 MEQ/L (5-15); AST (GOT) 92 U/L (15-37); BICARBONATE 24.2 MEQ/L (21.0-32.0); BLOOD UREA NITROGEN 15 MG/DL (7-18); CHLORIDE 99 MEQ/L (98-107); GLOMERULAR FILTRATION RATE 64 ML/MIN (>89); POTASSIUM 4.4 MEQ/L (3.5-5.1); SODIUM (NA) 133 MEQ/L (136-145)
[2017-03-28 08:36] LABS: ALKALINE PHOSPHATASE 96 U/L (45-117); ALT (GPT) 17 U/L (12-78); TOTAL BILIRUBIN ADULT 0.2 MG/DL (0.2-1.0)
--- NOTE | 2017-03-28 08:44 | HHI.PR ---
Subjective Remarks ass OPENS EYES NO DISTRESS o2 sat 95%ON TTUBE small cell CA of urinary bladder Objective Vital Signs Date Time Temp Pulse Resp B/P (MAP) Pulse Ox O2 Delivery O2 Flow Rate FiO2 03/28/17 08:00 97.9 122 19 142/87 (105) 97 03/28/17 04:00 97.6 112 22 129/74 (92) 98 03/28/17 00:00 99.0 109 22 130/69 (89) 100 03/27/17 22:51 99 T-piece 5.00 28 03/27/17 20:00 97.4 115 21 127/82 (97) 95 03/27/17 12:00 97.9 112 20 102/68 (79) 99 03/27/17 09:08 97 T-piece 28 I/O 03/27/17 03/27/17 03/27/17 03/28/17 03/28/17 03/28/17 07:00 15:00 23:00 07:00 15:00 23:00 Intake Total 100 ml Output Total 500 ml 650 ml 10.0 ml Balance -500 ml -550 ml -10.0 ml IV Total 100 ml Output Urine Total 500 ml 650 ml Stool Total 0 ml Tube Feeding Residual Discard 10.0 ml # Bowel Movements 2 Result Diagram: 03/28/17 0748 03/28/17 0748 Procedures 07/22/2016 Wide excision of sacral skin wound, biopsy of the cavity lining and debridement. PEG removal and Gj tube placement 07/29/16 VAC changes- M-W-F 10/23/16, 11/18, 12/31- GJ tube replacement 01/02/16 PEG placement 01/02/16 tracheostomy 02/25/17 PEG replacement 03/03/17 Cystoscopy and palliative transurethral resection of bladder tumor greater than 5cm originating from the right bladder wall Objective Remarks GENERAL: SKIN: Warm and dry. HEAD: Atraumatic. Normocephalic. EYES: Pupils equal and round. No scleral icterus. No injection or drainage. ENT: No nasal bleeding or discharge. Mucous membranes pink and moist. NECK: Trachea midline. No JVD. CARDIOVASCULAR: Regular rate and rhythm. RESPIRATORY: No accessory muscle use. Clear to auscultation. Breath sounds equal bilaterally. GASTROINTESTINAL: Abdomen soft, non-tender, nondistended. Hepatic and splenic margins not palpable. MUSCULOSKELETAL: Extremities without clubbing, cyanosis, or edema. No obvious deformities. NEUROLOGICAL: Awake and alert. No obvious cranial nerve deficits. Motor grossly within normal limits. Five out of 5 muscle strength in the arms and legs. Normal speech. PSYCHIATRIC: Appropriate mood and affect; insight and judgment normal. Laboratory Tests Test 01/05/17 01/06/17 08:35 08:41 Red Blood Count 4.43 MIL/MM3 (4.50-5.90) Hemoglobin 9.9 GM/DL (13.0-17.0) Hematocrit 32.0 % (39.0-51.0) Mean Corpuscular Volume 72.1 FL (80.0-100.0) Mean Corpuscular Hemoglobin 22.3 PG (27.0-34.0) Mean Corpuscular Hemoglobin 30.9 % Concent (32.0-36.0) Red Cell Distribution Width 19.9 % (11.6-17.2) Sodium Level 134 MEQ/L 133 MEQ/L (136-145) (136-145) Random Glucose 136 MG/DL 132 MG/DL (74-106) (74-106) Creatinine 0.59 MG/DL (0.60-1.30) GENERAL: SKIN: Warm and dry. HEAD: Atraumatic. Normocephalic. EYES: Pupils equal and round. No scleral icterus. No injection or drainage. ENT: No nasal bleeding or discharge. Mucous membranes pink and moist. NECK: Trachea midline. No JVD. TRACH. [place] CARDIOVASCULAR: Regular rate and rhythm. RESPIRATORY: No accessory muscle use. Clear to auscultation. Breath sounds equal bilaterally. GASTROINTESTINAL: Abdomen soft, non-tender, nondistended. Hepatic and splenic margins not palpable. MUSCULOSKELETAL: Extremities without clubbing, cyanosis, or edema. No obvious deformities. NEUROLOGICAL: Awake and alert. No obvious cranial nerve deficits. Motor grossly within normal limits. Five out of 5 muscle strength in the arms and legs. Normal speech. PSYCHIATRIC: Appropriate mood and affect; insight and judgment normal. Assessment and Plan Assessment and Plan impression respiratory failure CVA S/P TRACHEOSTOMY SMALL CELL CA OF THE URINARY BLADDER PLAN on antibiotics receiving packed red cells O2 NEEDED PULM. TOILET Brandon Taylor MD Mar 28, 2017 08:44
[2017-03-28 09:54] LABS: BANDS 26 % (0-6); BASOPHILS 1 % (0-2); METAMYELOCYTES 1 % (0-1); NEUTROPHIL # MANUAL DIFF 4.4 TH/MM3 (1.8-7.7); POLYS (SEG NEUTROPHILS) 61 % (16-70); WBC DIFF SAMPLE 100
[2017-03-28 09:55] LABS: PLATELET ESTIMATE SMEAR LOW (NORMAL); PLATELET MORPHOLOGY NORMAL (NORMAL); SCAN/DIFF FINAL DIFF MANUAL
--- NOTE | 2017-03-28 14:02 | HHI.PR ---
Subjective Remarks Mother at bedside opens eyes some hematuria today no reports of diarrhea afebrile Objective Vitals Vital Signs Date Time Temp Pulse Resp B/P (MAP) Pulse Ox O2 Delivery O2 Flow Rate FiO2 03/28/17 12:54 96 Trach Collar 5.00 28 03/28/17 12:54 96 T-piece 5.00 28 03/28/17 12:00 95.8 111 18 130/75 (93) 97 03/28/17 08:00 97.9 122 19 142/87 (105) 97 03/28/17 04:00 97.6 112 22 129/74 (92) 98 03/28/17 00:00 99.0 109 22 130/69 (89) 100 03/27/17 22:51 99 T-piece 5.00 28 03/27/17 20:00 97.4 115 21 127/82 (97) 95 I/O 03/27/17 03/27/17 03/27/17 03/28/17 03/28/17 03/28/17 07:00 15:00 23:00 07:00 15:00 23:00 Intake Total 100 ml Output Total 500 ml 650 ml 10.0 ml Balance -500 ml -550 ml -10.0 ml IV Total 100 ml Output Urine Total 500 ml 650 ml Stool Total 0 ml Tube Feeding Residual Discard 10.0 ml # Bowel Movements 2 Result Diagram: 03/28/1748 03/28/17 0748 Objective Remarks GENERAL: Non-verbal, lethargic, opens eyes to voice and command, tracking people in room. Not in acute distress. SKIN: Warm and dry. HEENT: Normocephalic. Pupils nonicteric. Nose without bleeding. Airway patent. NECK: Supple, trachea midline. T-tube in place, site clean, dry, intact. No JVD. CARDIOVASCULAR: Regular rate and rhythm. No murmur appreciated. RESPIRATORY: Breath sounds equal bilaterally. No accessory muscle use. Trach tube in place. Bedside monitor indicated oxygen saturation was 99%. Bilateral rhonchi. GASTROINTESTINAL: Abdomen soft, non-tender, nondistended. PEG tube noted,area around insertion is now clean with PEG tube feeds, PEG tube slides out easily. MUSCULOSKELETAL: No cyanosis, or edema. PSYCHIATRIC: Pt non-verbal. Procedures 07/22/2016 Wide excision of sacral skin wound, biopsy of the cavity lining and debridement. PEG removal and Gj tube placement 07/29/16 VAC changes- M-W-F 10/23/16, 11/18, 12/31- GJ tube replacement 01/02/16 PEG placement 01/02/16 tracheostomy 02/25/17 PEG replacement 03/03/17 Cystoscopy and palliative transurethral resection of bladder tumor greater than 5cm originating from the right bladder wall Medications and IVs Current Medications Medications (Trade) Dose Ordered Sig/Junior Route Start Time Stop Time Status Last Admin (NS Flush) 2 ml UNSCH PRN IVF 12/21/15 06:00 03/27/17 07:40 (Keppra Liq) 500 mg Q12HR TUBE 12/27/15 21:00 03/28/17 07:37 (Tylenol 650 Mg/ 20 ml Liq) 650 mg Q6H PRN TUBE 12/30/15 15:15 03/23/17 00:33 (Mycostatin Powder) 1 applic Q12HR TOPICAL 01/08/16 21:00 03/28/17 07:49 (Pill Splitter) 1 ea UNSCH PRN OTHER 01/14/16 08:30 (Acetic Acid 0.25% Irr Btl) 10 ml Q8HR IRRIGATION 02/05/16 16:00 03/28/17 06:21 (Paxil Liq) 20 mg DAILY@1900 PEG 03/12/16 19:00 Future hold 03/27/17 17:23 (Zofran Inj) 4 mg Q6HR PRN IV PUSH 04/14/16 19:45 03/16/17 16:00 (Xopenex Neb) 0.63 mg Q4HR NEB PRN NEB 05/05/16 12:00 03/25/17 14:22 (Aspirin) 325 mg DAILY TUBE 05/27/16 11:40 Future hold 03/28/17 07:37 (Baciguent Oint) 1 applic BID TOP 07/20/16 10:00 03/28/17 07:49 ([place]) 1 spray BID NASAL 08/01/16 21:00 03/28/17 07:50 (Tears Naturale Opth Soln) 1 drop BID EACH EYE 09/05/16 21:00 03/28/17 07:50 (Morphine Inj) 1 mg Q24H PRN IV PUSH 09/17/16 14:30 10/22/16 02:00 (Dulcolax Supp) 10 mg DAILY PRN RECTAL 09/26/16 15:30 12/08/16 09:17 (Tylenol - Codeine 120-12 Liq) 5 ml Q4H PRN G-TUBE 12/27/16 15:30 03/24/17 20:58 (Imodium Liq) 2 mg Q6H PRN PEG 12/27/16 15:30 03/26/17 21:24 (Milk Of Magnesia Liq) 30 ml DAILY PRN PEG 12/27/16 15:30 02/11/17 08:46 (Milk Of Magnesia Liq) 30 ml DAILY PEG 12/28/16 09:00 Future Hold 01/19/17 08:44 (Senna Liq) 8.8 mg DAILY@1600 PEG 12/27/16 16:00 Future Hold 03/24/17 17:13 (Lactulose Liq) 30 ml DAILY PRN PEG 12/27/16 15:30 (Cardizem) 30 mg QID PEG 01/09/17 18:00 03/28/17 12:52 (D50w (Vial) Inj) 50 ml UNSCH PRN IV 01/09/17 16:00 (Glucagon Inj) 1 mg UNSCH PRN OTHER 01/09/17 16:00 (Prevacid Odt) 30 mg BID NG 01/26/17 21:00 03/28/17 07:50 (Ferrous Sulfate Liq) 300 mg DAILY PO 02/14/17 09:00 03/28/17 07:37 (Vitamin C) 1,000 mg DAILY PO 02/14/17 09:00 03/28/17 07:36 (Bacitracin Oint Packet) 0.9 gm DAILY TOPICAL 02/25/17 09:00 03/28/17 07:49 (Levsin) 0.25 mg Q8HR G-TUBE 03/18/17 22:00 03/28/17 12:52 Pharmacy Profile Note 0 ml @ 0 mls/hr UNSCH OTHER 03/19/17 15:30 Piperacillin Sod/ Tazobactam Sod 100 ml @ 200 mls/hr Q8H IV 03/24/17 14:00 03/28/17 12:52 (NovoLOG SUPPLEMENTAL SCALE) 1 ACHS SLIDING SCALE SQ 03/26/17 21:00 03/28/17 13:01 (D50w (Vial) Inj) 50 ml UNSCH PRN IV PUSH 03/26/17 18:15 (Glucagon Inj) 1 mg UNSCH PRN OTHER 03/26/17 18:15 (Coumadin) 2 mg DAILY@1600 PO 03/28/17 16:00 (Levemir Inj) 10 units Q12HR SQ 03/28/17 21:00 Date of Insertion: Mar 03, 2017 A/P Problem List: (1) CVA (cerebral vascular accident) ICD Code: I63.9 - Cerebral infarction, unspecified Status: Acute (2) A-fib ICD Code: I48.91 - Unspecified atrial fibrillation Status: Chronic (3) DM (diabetes mellitus) ICD Code: E11.9 - Type 2 diabetes mellitus without complications Status: Chronic (4) Hyponatremia ICD Code: E87.1 - Hypo-osmolality and hyponatremia Status: Acute Assessment and Plan 60 year-old male with past medical history of paroxysmal A. fib, hypertension, stage III non-Hodgkin's lymphoma status post chemotherapy who came into the hospital with altered mental status. 1. PEG tube site cellulitis/Low grade fever -ID was consulted - wound culture positive for Kleb pneumo sensitive to Levaquin. - BCX negative - SP treatment with IV Levaquin x 5 days however there is still purulence observed. Continue wound care and will reculture site if fever. - A per Wound care recommendations. Cleanse around PEG tube site with normal saline and apply drain sponge around tube secure tube and drain sponge with medifix tape change as needed. Please use skin prep before applying adhesives to skin. Continue. 03/23 purulent discharge observed from PEG site - re ordered wound culture and will reconsult ID. 03/24 ID reconsulted recommendations pending. Patient with low grade fever overnight with a tmax of 99.7. Will start on Iv broad spectrum antibiotics ( Vancomycin and Zosyn IV), check blood cultures, CXR and urinalysis 03/25 UA (+) with urine culture growing gram negative rods. Continue IV zosyn and fu ID recommendations. blood cultures negative. Consult infectious GI to asses PEG tube. 03/26 GI recommendations pending regarding PEG tube. Continue IV zosyn for now. 03/27 No fevers. Continue antibiotics as per ID. Continue Zosyn, repeat cultures if febrile. Urine culture is growing pseudomonas. wound culture growing MDR pseudomonas. GI reconsulted however patient no seen yet. 2. 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 - CT of the abdomen showed bladder mass right posteriorly with apparent extravesical extension and clot formation. - Urology spoke with family member, daughter, states that he's not recommending biopsy of the bladder mass. However daughter insisted on biopsy. Patient s/p cystoscopy and palliative transurethral resection of bladder tumor greater than 5 cm originating from right bladder wall performed by Dr. Sewell . 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 - Oncology following - appreciate their assistance. Family requesting aggressive therapy. CT chest negative for malignancy. MRI completed. Patient is not a candidate for chemotherapy. Family has decided on palliative XRT treatment and would like it to start MIGEL. Consult placed for radiation oncology. - Palliative care following, appreciate their assistance. - Continue to flush lopez catheter PRN. Monitor for recurrence of hematuria - Patient is currently undergoing radiation therapy. Monitor for side effects. - 03/28 Mild hematuria today, continue to monitor urine output or for side effects. Hold Coumadin for now until hematuria resolves. Resume Coumadin once hematuria resolves. 3. 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 Intermittently tracks with eyes. - Continue Keppra 500mg BID for seizure prophylaxis. Keppra level 17.8. - PT/OT signed off as patient is unable to participate. - On Paxil 20 by mouth daily for depression. - On acetaminophen with codeine for pain scale of 2-10. - Morphine 1 mg every 24 hours when necessary for dressing change 4. Chronic respiratory failure secondary to CVA - Status post tracheostomy. Continue pulmonary toilet and bronchodilators as needed. Continue trach care, suctioning. Increased secretions improved with scheduled Levsin. Decreased dosing of scheduled Levsin to q8h. - Trach changed to size #6 XLT on 01/09 - Duo nebs every 4 hours while awake - Pulmonary currently following, appreciate assistance. 5. Atrial fibrillation. 6. Hypertension controlled. 7. Dyslipidemia - Continue rate control with Cardizem and metoprolol. - [id number] score 4 - Echocardiogram in November 2015 shows preserved ejection fraction. - 03/24 Coumadin discontinued secondary to bleeding from sacral wound. No active bleeding noted. Coumadin resumed Pharmacy to dose. INR supratherapeutic at 3.3. Hold coumadin and aspirin due to drop in hemoglobin. - No active bleeding noted. Therapeutic INR at 3.0. Pharmacy dosing. - 03/28 mild hematuria, INR down to 2.3. Today heart rate increased into the 120's. I will increase Cardizem dose from 30 mg to 60 mg QID. Check EKG. 8. History of non-Hodgkin's lymphoma - Status post brain biopsy on December 13 by neurosurgery. Pathology consistent with acute infarct without evidence of lymphoma. 9 Diabetes mellitus Type 2 - Hemoglobin A1c is 5.5. - Fingersticks have been stable and were DC'd 02/01/17 - 03/24 Blood sugar uncontrolled - Will resume Accu-Cheks and SSI with insulin NovoLog. - 03/27 Blood sugar severely elevated in the 200's. Will start SQ Levir 5 units SQ BID. continue SSI with insulin Novolog. - 03/28 sugars still very elevated above the 200s. Will increase Levemir subcutaneously to 10 units subcutaneously twice a day. Continue SSI with insulin NovoLog. Continue to monitor Accu-Cheks. 10. Decubitus ulcer stage IV - Status post wide excision of sacral skin and biopsy of the cavity lining with debridement on 07/22/16. - Continue wound care, twice-daily dressing changes. Wound care recommendations last updated 12/12/16. Continue pressure relief measures including turning and positioning. - Patient's family has declined a diverting colostomy. Previous Wound culture growing Klebsiella and Enterococcus Faecalis. Previously on Augmentin. - Wound care last saw patient on 02/25/17, no new recommendations continue packing with Betadine moistened rolled Janis and covered with ABD pad and paper tape to secure. - Continue to monitor. Continue pressure-relief. - Morphine 1 mg every 24 hours when necessary for dressing change - confirmed with nursing staff continued dressing changes BID 11. Protein calorie malnutrition 12. Gastroesophageal reflux disease 13. Gastric ulcer, reflux esophagitis 14. Diarrhea, negative for C. difficile. - EGD on 07/30/16 showed gastric ulcers. Continue on Prevacid 30 mg Q12. - G/J tube clogged, IR consulted to evaluate. Replaced on 02/25/17 - TF held 03/16 due to emesis. No recurrence. TF resumed yesterday - patient tolerating. Technician [employer] consulted to assist with rate/needs. Per their recommendations, Rec increasing TF'ing 10ml/hr Q 6hr, as tolerated, to goal rate 55ml/hr. Rec to discontinue the Ashish r/t pt has received Ashish for Rec dosing of 4-weeks to promote new tissue growth. - Continue bowel regimen with hold parameters, Lactinex and Imodium. (+)BM overnight x 1. - 03/23 patient with increased loose stools as per rn repeat C diff PCR - negative 15. Klebsiella/Pseudomonas/staph aureus HCAP 16. PSAE UTI - S/p Cefepime. Monitor for signs of infections. - strep pneumonia and Legionella urinary Ag is negative - C-diff PCR negative on 01/13 - 01/09 BC : Staph Epi, Urine cx: Pseudomonas, Sputum cx: Pseudomonas, kleb, Staph. - Patient was pancultured on 01/19 (Blood, sputum, urine) NGTD in urine and blood. Sputum + for pseudomonas. Likely colonization. 17. Hyponatremia - Mild, sodium stable at 133 - continue to monitor BMP. 18. Anemia - sp transfusion of 1 unit of PRBC on 03/24. Hemoglobin responded appropriately from 6.8 and 8.1. - Stool Hemoccult negative. - Continue to monitor cbc. - 03/28 Hemoglobin stable at 7.9. Transfuse for hemoglobin < 7. 19. Oliguria - Likely due to dehydration. - Improving with IV fluids and increased free water via PEG. - 03/27 Continue free water. Fu BMP. DVT prophylaxis: Continue SCDs, Coumadin on hold. Discussed w mother at bedside. Discharge Planning Patient not medically cleared - still on Iv zosyn, mild hematuria. Coumadin held. Problem Qualifiers (1) CVA (cerebral vascular accident): (2) DM (diabetes mellitus): Renny Kamara MD Mar 28, 2017 14:02
--- NOTE | 2017-03-28 18:04 | HHI.PR ---
Subjective Subjective Comments Mother at bedside. Patient opens eyes to voice. Does not appear to be in pain. Allergies: Coded Allergies: *MDRO Multi-Drug Resistant Organism (Verified Adverse Reaction, Unknown, ) MRSA (sputum) - 03/08/16, 04/03/2016 MDR-Pseudomonas Aeruginosa (urine)-08/25/16 Review of Systems All other ROS: Unable to obtain Exam I&O / VS 03/28/17 03/28/17 03/29/17 15:00 23:00 07:00 Output Total 10.0 ml Balance -10.0 ml Tube Feeding Residual Discard 10.0 ml Vital Signs Date Time Temp Pulse Resp B/P (MAP) Pulse Ox O2 Delivery O2 Flow Rate FiO2 03/28/17 16:00 95.6 108 18 110/72 (85) 97 03/28/17 12:54 96 Trach Collar 5.00 28 03/28/17 12:54 96 T-piece 5.00 28 03/28/17 12:00 95.8 111 18 130/75 (93) 97 03/28/17 08:00 97.9 122 19 142/87 (105) 97 03/28/17 04:00 97.6 112 22 129/74 (92) 98 03/28/17 00:00 99.0 109 22 130/69 (89) 100 03/27/17 22:51 99 T-piece 5.00 28 03/27/17 20:00 97.4 115 21 127/82 (97) 95 General: No acute distress, Other (Trach in place) Musculoskeletal: ROM (Tone is slightly increased in upper and lower extremity flexors but range of motion is within functional limits), Other (SCDs in place) Psychiatric: Cooperative Orientation: unable to asses Self, unable to asses Place, unable to asses Time , unable to asses Situation Neurologic: Pupils (PERRLA), EOM (Tracks horizontally and vertically) Objective Micro and Labs Laboratory Tests Test 03/28/17 07:48 White Blood Count 5.0 Red Blood Count 3.57 Hemoglobin 7.9 Hematocrit 25.6 Mean Corpuscular Volume 71.8 Mean Corpuscular Hemoglobin 22.2 Mean Corpuscular Hemoglobin Concent 31.0 Red Cell Distribution Width 21.2 Platelet Count 104 Mean Platelet Volume 8.4 Neutrophils (%) (Auto) 78.3 Lymphocytes (%) (Auto) 14.0 Monocytes (%) (Auto) 5.4 Eosinophils (%) (Auto) 1.6 Basophils (%) (Auto) 0.7 Neutrophils # (Auto) 3.9 Lymphocytes # (Auto) 0.7 Monocytes # (Auto) 0.3 Eosinophils # (Auto) 0.1 Basophils # (Auto) 0.0 CBC Comment AUTO DIFF Differential Total Cells Counted 100 Neutrophils % (Manual) 61 Band Neutrophils % 26 Lymphocytes % 8 Monocytes % 3 Basophils % 1 Neutrophils # (Manual) 4.4 Metamyelocytes 1 Differential Comment FINAL DIFF MANUAL Platelet Estimate LOW Platelet Morphology Comment NORMAL Prothrombin Time 26.8 Prothromb Time International Ratio 2.3 Blood Urea Nitrogen 15 Creatinine 1.16 Random Glucose 228 Total Protein 7.9 Albumin 1.9 Calcium Level 8.7 Phosphorus Level 2.7 Magnesium Level 2.0 Alkaline Phosphatase 96 Aspartate Amino Transf (AST/SGOT) 92 Alanine Aminotransferase (ALT/SGPT) 17 Total Bilirubin 0.2 Sodium Level 133 Potassium Level 4.4 Chloride Level 99 Carbon Dioxide Level 24.2 Anion Gap 10 Estimat Glomerular Filtration Rate 64 Date/Time Source Procedure Growth Status 03/25/17 07:12 Blood Peripheral Aerobic Blood Culture - Preliminary NO GROWTH IN 3 DAYS Resulted 03/25/17 07:12 Blood Peripheral Anaerobic Blood Culture - Preliminary NO GROWTH IN 3 DAYS Resulted 03/24/17 00:00 Stool Stool Stool Occult Blood (AISHA) - Final HEMOCCULT NEGATIVE Complete 02/22/17 14:18 Sputum Endotracheal Gram Stain - Final Complete 02/22/17 14:18 Sputum Culture - Final Pseudomonas Aeruginosa Complete 03/24/17 17:50 Urine Catheterized Urine Urine Culture - Final Pseudomonas Aeruginosa Complete 03/23/17 15:40 Wound Abdomen Gram Stain - Final Complete 03/23/17 15:40 Wound Culture - Final Pseudomonas Aeruginosa Sharri Tropicalis Enterococcus Faecalis Complete Assessment and Plan Diagnosis: (1) CVA (cerebral vascular accident) ICD Codes: I63.9 - Cerebral infarction, unspecified Status: Acute Qualifiers: Laterality of affected vessel: bilateral Assessment 1. 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 Sacral wound 3. Atrial fibrillation 4. HTN 5. Non-Hodgkin lymphoma stage 3 S/P chemotherapy 6. DM 7. Small cell carcinoma bladder receiving radiation treatment Plan 1. Nursing and family providing range of motion which appears to be within functional limits. 2. Case management continues to pursue long-term placement and SNF has been identified when medically cleared and radiation treatment completed 3. Continue to turn and reposition q 2 hours. Specialty bed is in place and wound care is following 4. No additional rehabilitation recommendations at this time. Continue to encourage communication using eyeblink/gaze per speech therapy recommendations. . Marla Pickens MD Mar 28, 2017 18:04
[2017-03-28] MEDS: WARFARIN SOD 2 MG TAB PO SCH (18:13)
[2017-03-28] MEDS: PARoxetine HCL SUSP 20 MG/10 ML UDC PEG SCH (18:13)
[2017-03-29] VITALS (7 sets, daily range): BP systolic 111–139; BP diastolic 64–80; PULSE 108–134; RESP 16–28; TEMP 97.4–100.4; O2SAT 95–100
[2017-03-29] MEDS: PIPERACIL-TAZO 4.5 GM PREMIX 100 ML IV SCH ×3 (05:36→21:10)
[2017-03-29] MEDS: HYOSCYAMINE 0.125 MG TAB G-TUBE SCH ×3 (05:36→21:13)
[2017-03-29] MEDS: ACETIC ACID 0.25% SOLN 1000 ML IRR BTL IRRIGATION SCH ×3 (05:38→21:30)
[2017-03-29] MEDS: INSULIN ASPART SUPPLEMENTAL SCALE SQ SCH ×4 (05:55→21:40)
[2017-03-29 07:56] LABS: HEMATOCRIT 24.8 % (39.0-51.0); MEAN CELL VOLUME 71.3 FL (80.0-100.0); MEAN CORPUSCULAR HEMOGLOBIN 22.4 PG (27.0-34.0); MEAN CORPUSCULAR HGB CONC 31.4 % (32.0-36.0); PLATELET COUNT 84 TH/MM3 (150-450); RED BLOOD COUNT 3.48 MIL/MM3 (4.50-5.90); RED CELL DISTRIBUTION WIDTH 20.9 % (11.6-17.2); WHITE BLOOD COUNT 4.2 TH/MM3 (4.0-11.0)
[2017-03-29 08:02] LABS: INTERNATIONAL NORMALIZED RATIO 1.9 RATIO; PROTHROMBIN TIME - PATIENT 21.7 SEC (9.8-11.6)
[2017-03-29 08:03] LABS: REVIEW FLAG FINAL
[2017-03-29 08:21] LABS: BICARBONATE 24.1 MEQ/L (21.0-32.0); POTASSIUM 4.2 MEQ/L (3.5-5.1)
[2017-03-29] MEDS: BACITRACIN TOP OINT 15 GM TUBE TOP SCH ×2 (09:00→21:15)
[2017-03-29] MEDS: ASCORBIC ACID 500 MG TAB PO SCH (09:00)
[2017-03-29] MEDS: SODIUM CHLORIDE 0.65% NASAL SPRAY 45 ML BTL NASAL SCH ×2 (09:00→21:00)
[2017-03-29] MEDS: BACITRACIN OINT 0.9 GM PKT TOPICAL SCH (09:00)
[2017-03-29] MEDS: levETIRAcetam 500 MG/5 ML UDC TUBE SCH ×2 (09:00→21:13)
[2017-03-29] MEDS: ARTIFICIAL TEARS OPTH SOLN 15 ML BTL EACH EYE SCH ×2 (09:00→21:15)
[2017-03-29] MEDS: NYSTATIN 100,000 U/GM PWD 15 GM BTL TOPICAL SCH ×2 (09:00→21:14)
[2017-03-29] MEDS: ASPIRIN 325 MG TAB TUBE SCH (09:12)
[2017-03-29] MEDS: DILTIAZEM HCL 30 MG TAB PEG SCH ×4 (09:13→22:03)
[2017-03-29] MEDS: FERROUS SULFATE 300 MG /5ML UDC PO SCH (09:13)
[2017-03-29] MEDS: LANSOPRAZOLE SOLUTAB 30 MG TAB NG SCH ×2 (09:13→21:13)
[2017-03-29] MEDS: INSULIN DETEMIR 100 UNITS/ML VIAL SQ SCH ×2 (09:14→21:40)
[2017-03-29] MEDS: ACETAMINOPHEN 650 MG/20.3 ML UDC TUBE PRN (11:35)
--- NOTE | 2017-03-29 13:15 | HHI.PR ---
Subjective Remarks ass OPENS EYES NO DISTRESS o2 sat 95%ON TTUBE small cell CA of urinary bladder Objective Vital Signs Date Time Temp Pulse Resp B/P (MAP) Pulse Ox O2 Delivery O2 Flow Rate FiO2 03/29/17 08:00 97.4 134 16 139/80 (99) 95 03/29/17 04:00 100.4 125 21 120/76 (91) 97 03/29/17 00:00 98.3 127 22 136/80 (98) 99 03/28/17 22:06 98 T-piece 28 03/28/17 22:06 98 Trach Collar 28 03/28/17 21:25 T-Piece 5.00 28 03/28/17 20:00 97.5 105 22 106/73 (84) 98 03/28/17 16:00 95.6 108 18 110/72 (85) 97 I/O 03/28/17 03/28/17 03/28/17 03/29/17 03/29/17 03/29/17 07:00 15:00 23:00 07:00 15:00 23:00 Intake Total 0 ml 2330 ml 0 ml Output Total 10.0 ml 600.0 ml 1200 ml Balance -10.0 ml -600.0 ml 1130 ml 0 ml Intake Oral 0 ml 0 ml IV Total 200 ml Tube Feeding 2130 ml Output Urine Total 600 ml 1200 ml Tube Feeding Residual Discard 10.0 ml 0 ml # Bowel Movements 1 2 Result Diagram: 03/29/17 0710 03/29/17 0710 Procedures 07/22/2016 Wide excision of sacral skin wound, biopsy of the cavity lining and debridement. PEG removal and Gj tube placement 07/29/16 VAC changes- M-W-F 10/23/16, 11/18, 12/31- GJ tube replacement 01/02/16 PEG placement 01/02/16 tracheostomy 02/25/17 PEG replacement 03/03/17 Cystoscopy and palliative transurethral resection of bladder tumor greater than 5cm originating from the right bladder wall Objective Remarks GENERAL: SKIN: Warm and dry. HEAD: Atraumatic. Normocephalic. EYES: Pupils equal and round. No scleral icterus. No injection or drainage. ENT: No nasal bleeding or discharge. Mucous membranes pink and moist. NECK: Trachea midline. No JVD. CARDIOVASCULAR: Regular rate and rhythm. RESPIRATORY: No accessory muscle use. Clear to auscultation. Breath sounds equal bilaterally. GASTROINTESTINAL: Abdomen soft, non-tender, nondistended. Hepatic and splenic margins not palpable. MUSCULOSKELETAL: Extremities without clubbing, cyanosis, or edema. No obvious deformities. NEUROLOGICAL: Awake and alert. No obvious cranial nerve deficits. Motor grossly within normal limits. Five out of 5 muscle strength in the arms and legs. Normal speech. PSYCHIATRIC: Appropriate mood and affect; insight and judgment normal. Laboratory Tests Test 01/05/17 01/06/17 08:35 08:41 Red Blood Count 4.43 MIL/MM3 (4.50-5.90) Hemoglobin 9.9 GM/DL (13.0-17.0) Hematocrit 32.0 % (39.0-51.0) Mean Corpuscular Volume 72.1 FL (80.0-100.0) Mean Corpuscular Hemoglobin 22.3 PG (27.0-34.0) Mean Corpuscular Hemoglobin 30.9 % Concent (32.0-36.0) Red Cell Distribution Width 19.9 % (11.6-17.2) Sodium Level 134 MEQ/L 133 MEQ/L (136-145) (136-145) Random Glucose 136 MG/DL 132 MG/DL (74-106) (74-106) Creatinine 0.59 MG/DL (0.60-1.30) GENERAL: SKIN: Warm and dry. HEAD: Atraumatic. Normocephalic. EYES: Pupils equal and round. No scleral icterus. No injection or drainage. ENT: No nasal bleeding or discharge. Mucous membranes pink and moist. NECK: Trachea midline. No JVD. TRACH. [place] CARDIOVASCULAR: Regular rate and rhythm. RESPIRATORY: No accessory muscle use. Clear to auscultation. Breath sounds equal bilaterally. GASTROINTESTINAL: Abdomen soft, non-tender, nondistended. Hepatic and splenic margins not palpable. MUSCULOSKELETAL: Extremities without clubbing, cyanosis, or edema. No obvious deformities. NEUROLOGICAL: Awake and alert. No obvious cranial nerve deficits. Motor grossly within normal limits. Five out of 5 muscle strength in the arms and legs. Normal speech. PSYCHIATRIC: Appropriate mood and affect; insight and judgment normal. Medications and IVs Laboratory Tests Test 03/27/17 06:43 03/28/17 07:48 03/29/17 07:10 Prothrombin Time 35.1 SEC (9.8-11.6) 26.8 SEC (9.8-11.6) 21.7 SEC (9.8-11.6) Red Blood Count 3.57 MIL/MM3 (4.50-5.90) 3.48 MIL/MM3 (4.50-5.90) Hemoglobin 7.9 GM/DL (13.0-17.0) 7.8 GM/DL (13.0-17.0) Hematocrit 25.6 % (39.0-51.0) 24.8 % (39.0-51.0) Mean Corpuscular Volume 71.8 FL (80.0-100.0) 71.3 FL (80.0-100.0) Mean Corpuscular Hemoglobin 22.2 PG (27.0-34.0) 22.4 PG (27.0-34.0) Mean Corpuscular Hemoglobin Concent 31.0 % (32.0-36.0) 31.4 % (32.0-36.0) Red Cell Distribution Width 21.2 % (11.6-17.2) 20.9 % (11.6-17.2) Platelet Count 104 TH/MM3 (150-450) 84 TH/MM3 (150-450) Neutrophils (%) (Auto) 78.3 % (16.0-70.0) Lymphocytes # (Auto) 0.7 TH/MM3 (1.0-4.8) Band Neutrophils % 26 % (0-6) Lymphocytes % 8 % (9-44) Platelet Estimate LOW (NORMAL) Random Glucose 228 MG/DL (74-106) 190 MG/DL (74-106) Albumin 1.9 GM/DL (3.4-5.0) Aspartate Amino Transf (AST/SGOT) 92 U/L (15-37) Sodium Level 133 MEQ/L (136-145) 133 MEQ/L (136-145) Estimat Glomerular Filtration Rate 64 ML/MIN (>89) 62 ML/MIN (>89) Assessment and Plan Assessment and Plan impression respiratory failure CVA S/P TRACHEOSTOMY SMALL CELL CA OF THE URINARY BLADDER PLAN on antibiotics receiving packed red cells O2 NEEDED PULM. TOILET Discharge Planning GENERAL: SKIN: Warm and dry. HEAD: Atraumatic. Normocephalic. EYES: Pupils equal and round. No scleral icterus. No injection or drainage. ENT: No nasal bleeding or discharge. Mucous membranes pink and moist. NECK: Trachea midline. No JVD. CARDIOVASCULAR: Regular rate and rhythm. RESPIRATORY: No accessory muscle use. Clear to auscultation. Breath sounds equal bilaterally. GASTROINTESTINAL: Abdomen soft, non-tender, nondistended. Hepatic and splenic margins not palpable. MUSCULOSKELETAL: Extremities without clubbing, cyanosis, or edema. No obvious deformities. NEUROLOGICAL: Awake and alert. No obvious cranial nerve deficits. Motor grossly within normal limits. Five out of 5 muscle strength in the arms and legs. Normal speech. PSYCHIATRIC: Appropriate mood and affect; insight and judgment normal. Brandon Taylor MD Mar 29, 2017 13:15
--- NOTE | 2017-03-29 13:51 | EKG ---
Date Performed: 03/28/2017 Time Performed: 15:32:13 PTAGE: 61 years EKG: Sinus tachycardia (vs atrial tachycardia) MARKED LEFT AXIS DEVIATION LOW QRS VOLTAGE IN EXT REMITY LEADS ABNORMAL ECG PREVIOUS TRACING : 01/09/2017 15.15 Since prior tracing, rate is slower. DOCTOR: Pavan Snyder Interpretating Date/Time 03/29/2017 13:50:40
[2017-03-29] MEDS: WARFARIN SOD 2 MG TAB PO SCH (15:54)
[2017-03-29] MEDS: PARoxetine HCL SUSP 20 MG/10 ML UDC PEG SCH (18:23)
--- NOTE | 2017-03-29 23:59 | HHI.PR ---
Subjective Remarks Patient seen this afternoon around 1 PM. Family at bedside. No changes from previously during hospitalization. Heart rate is been slightly elevated today, likely due to missing diltiazem. Objective Vital Signs Date Time Temp Pulse Resp B/P (MAP) Pulse Ox O2 Delivery O2 Flow Rate FiO2 03/29/17 23:00 100 T-piece 6.00 28 03/29/17 23:00 100 T-piece 6.00 28 03/29/17 20:45 T-Piece 5.00 28 03/29/17 20:00 98.5 108 28 115/68 (84) 97 03/29/17 16:00 97.4 108 19 111/67 (82) 95 03/29/17 12:00 98 T-piece 6.00 28 03/29/17 12:00 99.7 119 20 119/64 (82) 97 03/29/17 12:00 98 T-piece 6.00 28 03/29/17 08:20 97 Mechanical Ventilator 6.00 28 Trach Collar 03/29/17 08:00 97.4 134 16 139/80 (99) 95 03/29/17 04:00 100.4 125 21 120/76 (91) 97 03/29/17 00:00 98.3 127 22 136/80 (98) 99 I/O 03/29/17 03/29/17 03/29/17 03/30/17 03/30/17 03/30/17 07:00 15:00 23:00 07:00 15:00 23:00 Intake Total 2330 ml 0 ml 1638 ml 100 ml Output Total 1200 ml 1200 ml Balance 1130 ml 0 ml 438 ml 100 ml Intake Oral 0 ml 0 ml IV Total 200 ml 100 ml Tube Feeding 2130 ml 1638 ml Output Urine Total 1200 ml 1200 ml # Bowel Movements 2 1 Result Diagram: 03/29/17 0710 03/29/17 0710 Procedures 07/22/2016 Wide excision of sacral skin wound, biopsy of the cavity lining and debridement. PEG removal and Gj tube placement 07/29/16 VAC changes- M-W-F 10/23/16, 11/18, 12/31- GJ tube replacement 01/02/16 PEG placement 01/02/16 tracheostomy 02/25/17 PEG replacement 03/03/17 Cystoscopy and palliative transurethral resection of bladder tumor greater than 5cm originating from the right bladder wall Objective Remarks GENERAL: pt sitting up in bed. Appears comfortable. awake , alert. Yet again, appears to answer no to family member in regards to whether he has pain, again unchanged from yesterday.. SKIN: Warm and dry. HEAD: Normocephalic. EYES: No scleral icterus. No injection or drainage. NECK: Supple, trachea midline. No JVD. CARDIOVASCULAR: Regular rate and rhythm without murmurs, gallops, or rubs. RESPIRATORY: Breath sounds equal bilaterally. No accessory muscle use. GASTROINTESTINAL: Abdomen soft, non-tender, nondistended. PEG tube with no surrounding erythema. MUSCULOSKELETAL: No cyanosis, or edema. xamined sacral ulcer. No signs of infection. BACK: Nontender without obvious deformity. No CVA tenderness. A/P Assessment and Plan =========01/26/17 /Atrial fibrillation, RVR with tachycardia. Likely secondary to missing diltiazem. Reviewed recent EKG with no acute changes. Discussed with nurse, and family. 1 year-old male with past medical history of paroxysmal A. fib, hypertension, stage III non-Hodgkin's lymphoma status post chemotherapy who came into the hospital with altered mental status. //PEG tube site cellulitis/Low grade fever -ID was consulted - wound culture positive for Kleb pneumo sensitive to Levaquin. - BCX negative - SP treatment with IV Levaquin x 5 days however there is still purulence observed. Continue wound care and will reculture site if fever. - A per Wound care recommendations. Cleanse around PEG tube site with normal saline and apply drain sponge around tube secure tube and drain sponge with medifix tape change as needed. Please use skin prep before applying adhesives to skin. Continue. 03/23 purulent discharge observed from PEG site - re ordered wound culture and will reconsult ID. 03/24 ID reconsulted recommendations pending. Patient with low grade fever overnight with a tmax of 99.7. Will start on Iv broad spectrum antibiotics ( Vancomycin and Zosyn IV), check blood cultures, CXR and urinalysis 03/25 UA (+) with urine culture growing gram negative rods. Continue IV zosyn and fu ID recommendations. blood cultures negative. Consult infectious GI to asses PEG tube. 03/26 GI recommendations pending regarding PEG tube. Continue IV zosyn for now. 03/27 No fevers. Continue antibiotics as per ID. Continue Zosyn, repeat cultures if febrile. Urine culture is growing pseudomonas. wound culture growing MDR pseudomonas. GI reconsulted however patient no seen yet. 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 - CT of the abdomen showed bladder mass right posteriorly with apparent extravesical extension and clot formation. - Urology spoke with family member, daughter, states that he's not recommending biopsy of the bladder mass. However daughter insisted on biopsy. Patient s/p cystoscopy and palliative transurethral resection of bladder tumor greater than 5 cm originating from right bladder wall performed by Dr. Sewell . 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 - Oncology following - appreciate their assistance. Family requesting aggressive therapy. CT chest negative for malignancy. MRI completed. Patient is not a candidate for chemotherapy. Family has decided on palliative XRT treatment and would like it to start MIGEL. Consult placed for radiation oncology. - Palliative care following, appreciate their assistance. - Continue to flush lopez catheter PRN. Monitor for recurrence of hematuria - Patient is currently undergoing radiation therapy. Monitor for side effects. - 03/28 Mild hematuria today, continue to monitor urine output or for side effects. Hold Coumadin for now until hematuria resolves. Resume Coumadin once hematuria resolves. -03/29. Continues on Coumadin. No observed hematuria. 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 Intermittently tracks with eyes. - Continue Keppra 500mg BID for seizure prophylaxis. Keppra level 17.8. - PT/OT signed off as patient is unable to participate. - On Paxil 20 by mouth daily for depression. - On acetaminophen with codeine for pain scale of 2-10. - cont Morphine 1 mg every 24 hours when necessary for dressing change //Chronic respiratory failure secondary to CVA - Status post tracheostomy. Continue pulmonary toilet and bronchodilators as needed. Continue trach care, suctioning. Increased secretions improved with scheduled Levsin. cont Levsin q8h. - Trach changed to size #6 XLT on 01/09 - Duo nebs every 4 hours while awake - Pulmonary currently following, appreciate assistance. //Atrial fibrillation. //Hypertension controlled. // Dyslipidemia - Continue rate control with Cardizem and metoprolol. - [id number] score 4 - Echocardiogram in November 2015 shows preserved ejection fraction. - 03/24 Coumadin discontinued secondary to bleeding from sacral wound. No active bleeding noted. Coumadin resumed Pharmacy to dose. INR supratherapeutic at 3.3. Hold coumadin and aspirin due to drop in hemoglobin. - No active bleeding noted. Therapeutic INR at 3.0. Pharmacy dosing. - 03/28 mild hematuria, INR down to 2.3. Today heart rate increased into the 120's. I will increase Cardizem dose from 30 mg to 60 mg QID. Check EKG==> no appreciable change on 03/28. // History of non-Hodgkin's lymphoma - Status post brain biopsy on December 13 by neurosurgery. Pathology consistent with acute infarct without evidence of lymphoma. // Diabetes mellitus Type 2 - Hemoglobin A1c is 5.5. - Fingersticks have been stable and were DC'd 02/01/17 - 03/24 Blood sugar uncontrolled - Will resume Accu-Cheks and SSI with insulin NovoLog. - 03/27 Blood sugar severely elevated in the 200's. Will start SQ Levir 5 units SQ BID. continue SSI with insulin Novolog. - 03/28 sugars still very elevated above the 200s. Will increase Levemir subcutaneously to 10 units subcutaneously twice a day. Continue SSI with insulin NovoLog. Continue to monitor Accu-Cheks. // Decubitus ulcer stage IV - Status post wide excision of sacral skin and biopsy of the cavity lining with debridement on 07/22/16. - Continue wound care, twice-daily dressing changes. Wound care recommendations last updated 12/12/16. Continue pressure relief measures including turning and positioning. - Patient's family has declined a diverting colostomy. Previous Wound culture growing Klebsiella and Enterococcus Faecalis. Previously on Augmentin. - Wound care last saw patient on 02/25/17, no new recommendations continue packing with Betadine moistened rolled Janis and covered with ABD pad and paper tape to secure. - Continue to monitor. Continue pressure-relief. - Morphine 1 mg every 24 hours when necessary for dressing change - confirmed with nursing staff continued dressing changes BID //Protein calorie malnutrition // Gastroesophageal reflux disease // Gastric ulcer, reflux esophagitis // Diarrhea, negative for C. difficile. - EGD on 07/30/16 showed gastric ulcers. Continue on Prevacid 30 mg Q12. - G/J tube clogged, IR consulted to evaluate. Replaced on 02/25/17 - TF held 03/16 due to emesis. No recurrence. TF resumed yesterday - patient tolerating. Anesthesiology Crna consulted to assist with rate/needs. Per their recommendations, Rec increasing TF'ing 10ml/hr Q 6hr, as tolerated, to goal rate 55ml/hr. Rec to discontinue the Ashish r/t pt has received Ashish for Rec dosing of 4-weeks to promote new tissue growth. - Continue bowel regimen with hold parameters, Lactinex and Imodium. (+)BM overnight x 1. - 03/23 patient with increased loose stools as per rn repeat C diff PCR - negative // Klebsiella/Pseudomonas/staph aureus HCAP // PSAE UTI - S/p Cefepime. Monitor for signs of infections. - strep pneumonia and Legionella urinary Ag is negative - C-diff PCR negative on 01/13 - 01/09 BC : Staph Epi, Urine cx: Pseudomonas, Sputum cx: Pseudomonas, kleb, Staph. - Patient was pancultured on 01/19 (Blood, sputum, urine) NGTD in urine and blood. Sputum + for pseudomonas. Likely colonization. // Hyponatremia - 03/29Mild, sodium stable at 133 - continue to monitor BMP. 18. Anemia - sp transfusion of 1 unit of PRBC on 03/24. Hemoglobin responded appropriately from 6.8 and 8.1. - Stool Hemoccult negative. - Continue to monitor cbc. - 03/29 Hemoglobin stable at 7.8. Transfuse for hemoglobin < 7. 19. Oliguria - Likely due to dehydration. - Improving with IV fluids and increased free water via PEG. - 03/27 Continue free water. Fu BMP. DVT prophylaxis: Continue SCDs, Coumadin on hold. Discharge Planning appreciate case management assistance. Ramiro Rucker MD Mar 29, 2017 23:59
[2017-03-30] VITALS (7 sets, daily range): BP systolic 110–138; BP diastolic 69–82; PULSE 115–123; RESP 17–24; TEMP 97.9–99.7; O2SAT 95–100
[2017-03-30] MEDS: ACETIC ACID 0.25% SOLN 1000 ML IRR BTL IRRIGATION SCH ×3 (05:43→21:16)
[2017-03-30] MEDS: PIPERACIL-TAZO 4.5 GM PREMIX 100 ML IV SCH ×3 (05:43→21:10)
[2017-03-30] MEDS: HYOSCYAMINE 0.125 MG TAB G-TUBE SCH ×3 (05:43→21:12)
[2017-03-30] MEDS: INSULIN ASPART SUPPLEMENTAL SCALE SQ SCH ×4 (06:01→21:46)
[2017-03-30 08:00] LABS: INTERNATIONAL NORMALIZED RATIO 1.8 RATIO
[2017-03-30] MEDS: DILTIAZEM HCL 30 MG TAB PEG SCH ×4 (09:00→21:13)
[2017-03-30] MEDS: SODIUM CHLORIDE 0.65% NASAL SPRAY 45 ML BTL NASAL SCH ×2 (09:00→21:00)
[2017-03-30] MEDS: ASCORBIC ACID 500 MG TAB PO SCH (09:00)
[2017-03-30] MEDS: ASPIRIN 325 MG TAB TUBE SCH (09:00)
[2017-03-30] MEDS: ARTIFICIAL TEARS OPTH SOLN 15 ML BTL EACH EYE SCH ×2 (09:00→21:15)
[2017-03-30] MEDS: levETIRAcetam 500 MG/5 ML UDC TUBE SCH ×2 (09:00→21:12)
[2017-03-30] MEDS: LANSOPRAZOLE SOLUTAB 30 MG TAB NG SCH ×2 (09:00→21:12)
[2017-03-30] MEDS: BACITRACIN OINT 0.9 GM PKT TOPICAL SCH (09:00)
[2017-03-30] MEDS: BACITRACIN TOP OINT 15 GM TUBE TOP SCH ×2 (09:00→21:16)
[2017-03-30] MEDS: NYSTATIN 100,000 U/GM PWD 15 GM BTL TOPICAL SCH ×2 (09:00→21:15)
[2017-03-30] MEDS: FERROUS SULFATE 300 MG /5ML UDC PO SCH (09:01)
[2017-03-30] MEDS: INSULIN DETEMIR 100 UNITS/ML VIAL SQ SCH ×2 (09:09→21:44)
--- NOTE | 2017-03-30 12:42 | HHI.PR ---
Subjective Remarks ass OPENS EYES NO DISTRESS o2 sat 95%ON TTUBE small cell CA of urinary bladder elevated blood sugar Objective Vital Signs Date Time Temp Pulse Resp B/P (MAP) Pulse Ox O2 Delivery O2 Flow Rate FiO2 03/30/17 09:18 100 Trach Collar 3.00 28 03/30/17 08:47 95 Trach Collar 6.00 28 03/30/17 08:00 98.4 120 17 112/73 (86) 99 03/30/17 00:00 99.2 115 24 123/82 (96) 99 03/29/17 23:00 100 T-piece 6.00 28 03/29/17 23:00 100 T-piece 6.00 28 03/29/17 20:45 T-Piece 5.00 28 03/29/17 20:00 98.5 108 28 115/68 (84) 97 03/29/17 16:00 97.4 108 19 111/67 (82) 95 I/O 03/29/17 03/29/17 03/29/17 03/30/17 03/30/17 03/30/17 06:59 14:59 22:59 06:59 14:59 22:59 Intake Total 2330 ml 0 ml 1638 ml 583 ml Output Total 1200 ml 1200 ml 700 ml Balance 1130 ml 0 ml 438 ml -117 ml Intake Oral 0 ml 0 ml IV Total 200 ml 100 ml Tube Feeding 2130 ml 1638 ml 483 ml Output Urine Total 1200 ml 1200 ml 700 ml # Bowel Movements 2 1 Result Diagram: 03/29/17 0710 03/29/17 0710 Procedures 07/22/2016 Wide excision of sacral skin wound, biopsy of the cavity lining and debridement. PEG removal and Gj tube placement 07/29/16 VAC changes- M-W-F 10/23/16, 11/18, 12/31- GJ tube replacement 01/02/16 PEG placement 01/02/16 tracheostomy 02/25/17 PEG replacement 03/03/17 Cystoscopy and palliative transurethral resection of bladder tumor greater than 5cm originating from the right bladder wall Objective Remarks GENERAL: SKIN: Warm and dry. HEAD: Atraumatic. Normocephalic. EYES: Pupils equal and round. No scleral icterus. No injection or drainage. ENT: No nasal bleeding or discharge. Mucous membranes pink and moist. NECK: Trachea midline. No JVD. CARDIOVASCULAR: Regular rate and rhythm. RESPIRATORY: No accessory muscle use. Clear to auscultation. Breath sounds equal bilaterally. GASTROINTESTINAL: Abdomen soft, non-tender, nondistended. Hepatic and splenic margins not palpable. MUSCULOSKELETAL: Extremities without clubbing, cyanosis, or edema. No obvious deformities. NEUROLOGICAL: Awake and alert. No obvious cranial nerve deficits. Motor grossly within normal limits. Five out of 5 muscle strength in the arms and legs. Normal speech. PSYCHIATRIC: Appropriate mood and affect; insight and judgment normal. Laboratory Tests Test 01/05/17 01/06/17 08:35 08:41 Red Blood Count 4.43 MIL/MM3 (4.50-5.90) Hemoglobin 9.9 GM/DL (13.0-17.0) Hematocrit 32.0 % (39.0-51.0) Mean Corpuscular Volume 72.1 FL (80.0-100.0) Mean Corpuscular Hemoglobin 22.3 PG (27.0-34.0) Mean Corpuscular Hemoglobin 30.9 % Concent (32.0-36.0) Red Cell Distribution Width 19.9 % (11.6-17.2) Sodium Level 134 MEQ/L 133 MEQ/L (136-145) (136-145) Random Glucose 136 MG/DL 132 MG/DL (74-106) (74-106) Creatinine 0.59 MG/DL (0.60-1.30) GENERAL: SKIN: Warm and dry. HEAD: Atraumatic. Normocephalic. EYES: Pupils equal and round. No scleral icterus. No injection or drainage. ENT: No nasal bleeding or discharge. Mucous membranes pink and moist. NECK: Trachea midline. No JVD. TRACH. [place] CARDIOVASCULAR: Regular rate and rhythm. RESPIRATORY: No accessory muscle use. Clear to auscultation. Breath sounds equal bilaterally. GASTROINTESTINAL: Abdomen soft, non-tender, nondistended. Hepatic and splenic margins not palpable. MUSCULOSKELETAL: Extremities without clubbing, cyanosis, or edema. No obvious deformities. NEUROLOGICAL: Awake and alert. No obvious cranial nerve deficits. Motor grossly within normal limits. Five out of 5 muscle strength in the arms and legs. Normal speech. PSYCHIATRIC: Appropriate mood and affect; insight and judgment normal. Assessment and Plan Assessment and Plan impression respiratory failure CVA S/P TRACHEOSTOMY SMALL CELL CA OF THE URINARY BLADDER PLAN on antibiotics receiving packed red cells O2 NEEDED PULM. TOILET Brandon Taylor MD Mar 30, 2017 12:42
[2017-03-30] MEDS: WARFARIN SOD 2 MG TAB PO SCH (16:19)
[2017-03-30] MEDS: PARoxetine HCL SUSP 20 MG/10 ML UDC PEG SCH (18:11)
--- NOTE | 2017-03-30 21:15 | HHI.PR ---
Subjective Remarks Patient seen today around 11 AM. No acute changes Patient's heart rate is elevated in the 120s today. Discussed with nurse. Mother has been very concerned about blood pressures under 120, refuses to give medication. Have changed parameters for diltiazem to be held only if systolic blood pressure under 95. Objective Vital Signs Date Time Temp Pulse Resp B/P (MAP) Pulse Ox O2 Delivery O2 Flow Rate FiO2 03/30/17 16:00 99.7 123 18 138/77 (97) 97 03/30/17 12:00 98.2 119 20 110/69 (83) 95 03/30/17 09:18 100 Trach Collar 3.00 28 03/30/17 08:47 95 Trach Collar 6.00 28 03/30/17 08:00 98.4 120 17 112/73 (86) 99 03/30/17 00:00 99.2 115 24 123/82 (96) 99 03/29/17 23:00 100 T-piece 6.00 28 03/29/17 23:00 100 T-piece 6.00 28 I/O 03/29/17 03/29/17 03/29/17 03/30/17 03/30/17 03/30/17 07:00 15:00 23:00 07:00 15:00 23:00 Intake Total 2330 ml 0 ml 1638 ml 583 ml 833 ml Output Total 1200 ml 1200 ml 700 ml Balance 1130 ml 0 ml 438 ml -117 ml 833 ml Intake Oral 0 ml 0 ml IV Total 200 ml 100 ml 100 ml Tube Feeding 2130 ml 1638 ml 483 ml 733 ml Output Urine Total 1200 ml 1200 ml 700 ml # Bowel Movements 2 1 Result Diagram: 03/29/17 0710 03/29/17 0710 Procedures 07/22/2016 Wide excision of sacral skin wound, biopsy of the cavity lining and debridement. PEG removal and Gj tube placement 07/29/16 VAC changes- M-W-F 10/23/16, 11/18, 12/31- GJ tube replacement 01/02/16 PEG placement 01/02/16 tracheostomy 02/25/17 PEG replacement 03/03/17 Cystoscopy and palliative transurethral resection of bladder tumor greater than 5cm originating from the right bladder wall Objective Remarks GENERAL: pt sitting up in bed. Appears comfortable. awake , alert. Yet again, appears to answer no to family member in regards to whether he has pain, again unchanged from yesterday.. SKIN: Warm and dry. HEAD: Normocephalic. EYES: No scleral icterus. No injection or drainage. NECK: Supple, trachea midline. No JVD. CARDIOVASCULAR: Regular rate and rhythm without murmurs, gallops, or rubs. RESPIRATORY: Breath sounds equal bilaterally. No accessory muscle use. GASTROINTESTINAL: Abdomen soft, non-tender, nondistended. PEG tube with no surrounding erythema. MUSCULOSKELETAL: No cyanosis, or edema. xamined sacral ulcer. No signs of infection. BACK: Nontender without obvious deformity. No CVA tenderness. A/P Assessment and Plan =========01/27/17 /Atrial fibrillation, RVR with tachycardia. Patient's heart rate is elevated in the 120s today. Discussed with nurse. Mother has been very concerned about blood pressures under 120, refuses to give medication. Have changed parameters for diltiazem to be held only if systolic blood pressure under 95. 1 year-old male with past medical history of paroxysmal A. fib, hypertension, stage III non-Hodgkin's lymphoma status post chemotherapy who came into the hospital with altered mental status. //PEG tube site cellulitis/Low grade fever -ID was consulted - wound culture positive for Kleb pneumo sensitive to Levaquin. - BCX negative - SP treatment with IV Levaquin x 5 days however there is still purulence observed. Continue wound care and will reculture site if fever. - A per Wound care recommendations. Cleanse around PEG tube site with normal saline and apply drain sponge around tube secure tube and drain sponge with medifix tape change as needed. Please use skin prep before applying adhesives to skin. Continue. 03/23 purulent discharge observed from PEG site - re ordered wound culture and will reconsult ID. 03/24 ID reconsulted recommendations pending. Patient with low grade fever overnight with a tmax of 99.7. Will start on Iv broad spectrum antibiotics ( Vancomycin and Zosyn IV), check blood cultures, CXR and urinalysis 03/25 UA (+) with urine culture growing gram negative rods. Continue IV zosyn and fu ID recommendations. blood cultures negative. Consult infectious GI to asses PEG tube. 03/26 GI recommendations pending regarding PEG tube. Continue IV zosyn for now. 03/27 No fevers. Continue antibiotics as per ID. Continue Zosyn, repeat cultures if febrile. Urine culture is growing pseudomonas. wound culture growing MDR pseudomonas. GI reconsulted however patient no seen yet. 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 - CT of the abdomen showed bladder mass right posteriorly with apparent extravesical extension and clot formation. - Urology spoke with family member, daughter, states that he's not recommending biopsy of the bladder mass. However daughter insisted on biopsy. Patient s/p cystoscopy and palliative transurethral resection of bladder tumor greater than 5 cm originating from right bladder wall performed by Dr. Sewell . 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 - Oncology following - appreciate their assistance. Family requesting aggressive therapy. CT chest negative for malignancy. MRI completed. Patient is not a candidate for chemotherapy. Family has decided on palliative XRT treatment and would like it to start MIGEL. Consult placed for radiation oncology. - Palliative care following, appreciate their assistance. - Continue to flush lopez catheter PRN. Monitor for recurrence of hematuria - Patient is currently undergoing radiation therapy. Monitor for side effects. - 03/28 Mild hematuria today, continue to monitor urine output or for side effects. Hold Coumadin for now until hematuria resolves. Resume Coumadin once hematuria resolves. -03/29. Continues on Coumadin. No observed hematuria. 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 Intermittently tracks with eyes. - Continue Keppra 500mg BID for seizure prophylaxis. Keppra level 17.8. - PT/OT signed off as patient is unable to participate. - On Paxil 20 by mouth daily for depression. - On acetaminophen with codeine for pain scale of 2-10. - cont Morphine 1 mg every 24 hours when necessary for dressing change //Chronic respiratory failure secondary to CVA - Status post tracheostomy. Continue pulmonary toilet and bronchodilators as needed. Continue trach care, suctioning. Increased secretions improved with scheduled Levsin. cont Levsin q8h. - Trach changed to size #6 XLT on 01/09 - Duo nebs every 4 hours while awake - Pulmonary currently following, appreciate assistance. //Atrial fibrillation. //Hypertension controlled. // Dyslipidemia - Continue rate control with Cardizem and metoprolol. - [id number] score 4 - Echocardiogram in November 2015 shows preserved ejection fraction. - 03/24 Coumadin discontinued secondary to bleeding from sacral wound. No active bleeding noted. Coumadin resumed Pharmacy to dose. INR supratherapeutic at 3.3. Hold coumadin and aspirin due to drop in hemoglobin. - No active bleeding noted. Therapeutic INR at 3.0. Pharmacy dosing. - 03/28 mild hematuria, INR down to 2.3. Today heart rate increased into the 120's. I will increase Cardizem dose from 30 mg to 60 mg QID. Check EKG==> no appreciable change on 03/28. // History of non-Hodgkin's lymphoma - Status post brain biopsy on December 13 by neurosurgery. Pathology consistent with acute infarct without evidence of lymphoma. // Diabetes mellitus Type 2 - Hemoglobin A1c is 5.5. - Fingersticks have been stable and were DC'd 02/01/17 - 03/24 Blood sugar uncontrolled - Will resume Accu-Cheks and SSI with insulin NovoLog. - 03/27 Blood sugar severely elevated in the 200's. Will start SQ Levir 5 units SQ BID. continue SSI with insulin Novolog. - 03/28 sugars still very elevated above the 200s. Will increase Levemir subcutaneously to 10 units subcutaneously twice a day. Continue SSI with insulin NovoLog. Continue to monitor Accu-Cheks. // Decubitus ulcer stage IV - Status post wide excision of sacral skin and biopsy of the cavity lining with debridement on 07/22/16. - Continue wound care, twice-daily dressing changes. Wound care recommendations last updated 12/12/16. Continue pressure relief measures including turning and positioning. - Patient's family has declined a diverting colostomy. Previous Wound culture growing Klebsiella and Enterococcus Faecalis. Previously on Augmentin. - Wound care last saw patient on 02/25/17, no new recommendations continue packing with Betadine moistened rolled Janis and covered with ABD pad and paper tape to secure. - Continue to monitor. Continue pressure-relief. - Morphine 1 mg every 24 hours when necessary for dressing change - confirmed with nursing staff continued dressing changes BID //Protein calorie malnutrition // Gastroesophageal reflux disease // Gastric ulcer, reflux esophagitis // Diarrhea, negative for C. difficile. - EGD on 07/30/16 showed gastric ulcers. Continue on Prevacid 30 mg Q12. - G/J tube clogged, IR consulted to evaluate. Replaced on 02/25/17 - TF held 03/16 due to emesis. No recurrence. TF resumed yesterday - patient tolerating. Circular Ripsaw Operator consulted to assist with rate/needs. Per their recommendations, Rec increasing TF'ing 10ml/hr Q 6hr, as tolerated, to goal rate 55ml/hr. Rec to discontinue the Ashish r/t pt has received Ashish for Rec dosing of 4-weeks to promote new tissue growth. - Continue bowel regimen with hold parameters, Lactinex and Imodium. (+)BM overnight x 1. - 03/23 patient with increased loose stools as per rn repeat C diff PCR - negative // Klebsiella/Pseudomonas/staph aureus HCAP // PSAE UTI - S/p Cefepime. Monitor for signs of infections. - strep pneumonia and Legionella urinary Ag is negative - C-diff PCR negative on 01/13 - 01/09 BC : Staph Epi, Urine cx: Pseudomonas, Sputum cx: Pseudomonas, kleb, Staph. - Patient was pancultured on 01/19 (Blood, sputum, urine) NGTD in urine and blood. Sputum + for pseudomonas. Likely colonization. // Hyponatremia - 03/29Mild, sodium stable at 133 - continue to monitor BMP. // Anemia - sp transfusion of 1 unit of PRBC on 03/24. Hemoglobin responded appropriately from 6.8 and 8.1. - Stool Hemoccult negative. - Continue to monitor cbc. - 03/29 Hemoglobin stable at 7.8. Transfuse for hemoglobin < 7. // Oliguria - Likely due to dehydration. - Improving with IV fluids and increased free water via PEG. - 03/27 Continue free water. Fu BMP. DVT prophylaxis: Continue SCDs, Coumadin on hold. Discharge Planning appreciate case management assistance. Ramiro Rucker MD Mar 30, 2017 21:15
[2017-03-30] MEDS: RESP: LEVALBUTEROL HYDROCHLORIDE 0.63 MG/3 ML NEB (PRN) NEB (21:58)
[2017-03-31] VITALS (8 sets, daily range): BP systolic 101–143; BP diastolic 63–78; PULSE 90–135; RESP 17–26; TEMP 96.7–101.6; O2SAT 95–99
[2017-03-31] MEDS: HYOSCYAMINE 0.125 MG TAB G-TUBE SCH ×3 (05:15→21:08)
[2017-03-31] MEDS: ACETAMINOPHEN/CODEINE ELIX 120 MG/12 MG/5 ML CUP G-TUBE PRN (05:50)
[2017-03-31] MEDS: PIPERACIL-TAZO 4.5 GM PREMIX 100 ML IV SCH ×3 (06:00→21:04)
[2017-03-31] MEDS: ACETIC ACID 0.25% SOLN 1000 ML IRR BTL IRRIGATION SCH ×3 (06:00→21:31)
[2017-03-31] MEDS: INSULIN ASPART SUPPLEMENTAL SCALE SQ SCH ×4 (06:03→21:37)
[2017-03-31 07:07] LABS: INTERNATIONAL NORMALIZED RATIO 1.6 RATIO; PROTHROMBIN TIME - PATIENT 18.3 SEC (9.8-11.6)
[2017-03-31] MEDS: ASPIRIN 325 MG TAB TUBE SCH (07:54)
[2017-03-31] MEDS: DILTIAZEM HCL 30 MG TAB PEG SCH ×4 (07:54→21:08)
[2017-03-31] MEDS: ASCORBIC ACID 500 MG TAB PO SCH (07:54)
[2017-03-31] MEDS: LANSOPRAZOLE SOLUTAB 30 MG TAB NG SCH ×2 (07:54→21:08)
[2017-03-31] MEDS: FERROUS SULFATE 300 MG /5ML UDC PO SCH (07:55)
[2017-03-31] MEDS: ACETAMINOPHEN 650 MG/20.3 ML UDC TUBE PRN (07:55)
[2017-03-31] MEDS: levETIRAcetam 500 MG/5 ML UDC TUBE SCH ×2 (07:55→21:09)
[2017-03-31] MEDS: ARTIFICIAL TEARS OPTH SOLN 15 ML BTL EACH EYE SCH ×2 (07:56→21:09)
[2017-03-31] MEDS: BACITRACIN TOP OINT 15 GM TUBE TOP SCH ×2 (07:56→21:08)
[2017-03-31] MEDS: NYSTATIN 100,000 U/GM PWD 15 GM BTL TOPICAL SCH ×2 (07:56→21:21)
[2017-03-31] MEDS: BACITRACIN OINT 0.9 GM PKT TOPICAL SCH (07:56)
[2017-03-31] MEDS: SODIUM CHLORIDE 0.65% NASAL SPRAY 45 ML BTL NASAL SCH ×2 (07:56→21:09)
[2017-03-31] MEDS: INSULIN DETEMIR 100 UNITS/ML VIAL SQ SCH ×2 (08:00→21:38)
[2017-03-31] MEDS: WARFARIN SOD 2 MG TAB PO SCH (16:14)
[2017-03-31] MEDS: PARoxetine HCL SUSP 20 MG/10 ML UDC PEG SCH (17:54)
--- NOTE | 2017-03-31 18:59 | HHI.PR ---
Subjective Remarks ass OPENS EYES NO DISTRESS o2 sat 95%ON TTUBE small cell CA of urinary bladder elevated blood sugar Objective Vital Signs Date Time Temp Pulse Resp B/P (MAP) Pulse Ox O2 Delivery O2 Flow Rate FiO2 03/31/17 18:10 99 T-piece 6.00 28 03/31/17 16:00 96.9 107 17 121/73 (89) 99 03/31/17 12:10 97.6 90 18 101/63 (76) 96 03/31/17 09:25 99.9 03/31/17 09:22 97 T-piece 28 03/31/17 09:22 97 T-piece 28 03/31/17 08:00 101.6 135 17 136/78 (97) 96 03/31/17 00:00 99.7 128 26 143/71 (95) 95 03/30/17 21:58 100 T-piece 5.00 28 03/30/17 21:00 T-Piece 5.00 28 03/30/17 20:00 97.9 115 24 121/72 (88) 98 I/O 03/30/17 03/30/17 03/30/17 03/31/17 03/31/17 03/31/17 07:00 15:00 23:00 07:00 15:00 23:00 Intake Total 583 ml 1267 ml 436 ml 0 ml 828 ml Output Total 700 ml 950 ml 700 ml Balance -117 ml 1267 ml -514 ml 0 ml 128 ml Intake Oral 0 ml 0 ml IV Total 100 ml 100 ml 200 ml 100 ml Tube Feeding 483 ml 1167 ml 236 ml 728 ml Output Urine Total 700 ml 950 ml 700 ml # Bowel Movements 4 Result Diagram: 03/29/17 0710 03/29/17 0710 Procedures 07/22/2016 Wide excision of sacral skin wound, biopsy of the cavity lining and debridement. PEG removal and Gj tube placement 07/29/16 VAC changes- M-W-F 10/23/16, 11/18, 12/31- GJ tube replacement 01/02/16 PEG placement 01/02/16 tracheostomy 02/25/17 PEG replacement 03/03/17 Cystoscopy and palliative transurethral resection of bladder tumor greater than 5cm originating from the right bladder wall Objective Remarks GENERAL: SKIN: Warm and dry. HEAD: Atraumatic. Normocephalic. EYES: Pupils equal and round. No scleral icterus. No injection or drainage. ENT: No nasal bleeding or discharge. Mucous membranes pink and moist. NECK: Trachea midline. No JVD. CARDIOVASCULAR: Regular rate and rhythm. RESPIRATORY: No accessory muscle use. Clear to auscultation. Breath sounds equal bilaterally. GASTROINTESTINAL: Abdomen soft, non-tender, nondistended. Hepatic and splenic margins not palpable. MUSCULOSKELETAL: Extremities without clubbing, cyanosis, or edema. No obvious deformities. NEUROLOGICAL: Awake and alert. No obvious cranial nerve deficits. Motor grossly within normal limits. Five out of 5 muscle strength in the arms and legs. Normal speech. PSYCHIATRIC: Appropriate mood and affect; insight and judgment normal. Laboratory Tests Test 01/05/17 01/06/17 08:35 08:41 Red Blood Count 4.43 MIL/MM3 (4.50-5.90) Hemoglobin 9.9 GM/DL (13.0-17.0) Hematocrit 32.0 % (39.0-51.0) Mean Corpuscular Volume 72.1 FL (80.0-100.0) Mean Corpuscular Hemoglobin 22.3 PG (27.0-34.0) Mean Corpuscular Hemoglobin 30.9 % Concent (32.0-36.0) Red Cell Distribution Width 19.9 % (11.6-17.2) Sodium Level 134 MEQ/L 133 MEQ/L (136-145) (136-145) Random Glucose 136 MG/DL 132 MG/DL (74-106) (74-106) Creatinine 0.59 MG/DL (0.60-1.30) GENERAL: SKIN: Warm and dry. HEAD: Atraumatic. Normocephalic. EYES: Pupils equal and round. No scleral icterus. No injection or drainage. ENT: No nasal bleeding or discharge. Mucous membranes pink and moist. NECK: Trachea midline. No JVD. TRACH. [place] CARDIOVASCULAR: Regular rate and rhythm. RESPIRATORY: No accessory muscle use. Clear to auscultation. Breath sounds equal bilaterally. GASTROINTESTINAL: Abdomen soft, non-tender, nondistended. Hepatic and splenic margins not palpable. MUSCULOSKELETAL: Extremities without clubbing, cyanosis, or edema. No obvious deformities. NEUROLOGICAL: Awake and alert. No obvious cranial nerve deficits. Motor grossly within normal limits. Five out of 5 muscle strength in the arms and legs. Normal speech. PSYCHIATRIC: Appropriate mood and affect; insight and judgment normal. Assessment and Plan Assessment and Plan impression respiratory failure CVA S/P TRACHEOSTOMY SMALL CELL CA OF THE URINARY BLADDER PLAN on antibiotics receiving packed red cells O2 NEEDED PULM. TOILET Brandon Taylor MD Mar 31, 2017 18:59
--- NOTE | 2017-03-31 23:59 | HHI.PR ---
Subjective Remarks Patient seen around noon. No acute changes other than fever early this morning.patient appeared to 9 pain when asked by family. Objective Vital Signs Date Time Temp Pulse Resp B/P (MAP) Pulse Ox O2 Delivery O2 Flow Rate FiO2 03/31/17 20:00 96.7 116 24 117/69 (85) 96 03/31/17 18:10 99 T-piece 6.00 28 03/31/17 16:00 96.9 107 17 121/73 (89) 99 03/31/17 12:10 97.6 90 18 101/63 (76) 96 03/31/17 09:25 99.9 03/31/17 09:22 97 T-piece 28 03/31/17 09:22 97 T-piece 28 03/31/17 08:00 101.6 135 17 136/78 (97) 96 03/31/17 00:00 99.7 128 26 143/71 (95) 95 I/O 03/31/17 03/31/17 03/31/17 04/01/17 04/01/17 04/01/17 07:00 15:00 23:00 07:00 15:00 23:00 Intake Total 436 ml 0 ml 828 ml Output Total 950 ml 700 ml Balance -514 ml 0 ml 128 ml Intake Oral 0 ml 0 ml IV Total 200 ml 100 ml Tube Feeding 236 ml 728 ml Output Urine Total 950 ml 700 ml # Bowel Movements 4 Result Diagram: 03/29/17 0710 03/29/17 0710 Procedures 07/22/2016 Wide excision of sacral skin wound, biopsy of the cavity lining and debridement. PEG removal and Gj tube placement 07/29/16 VAC changes- M-W-F 10/23/16, 11/18, 12/31- GJ tube replacement 01/02/16 PEG placement 01/02/16 tracheostomy 02/25/17 PEG replacement 03/03/17 Cystoscopy and palliative transurethral resection of bladder tumor greater than 5cm originating from the right bladder wall Objective Remarks GENERAL: pt sitting up in bed. Appears comfortable. awake , alert. Yet again, appears to answer no to family member in regards to whether he has pain, again unchanged from yesterday.. SKIN: Warm and dry. HEAD: Normocephalic. EYES: No scleral icterus. No injection or drainage. NECK: Supple, trachea midline. No JVD. CARDIOVASCULAR: Regular rate and rhythm without murmurs, gallops, or rubs. RESPIRATORY: Breath sounds equal bilaterally. No accessory muscle use. GASTROINTESTINAL: Abdomen soft, non-tender, nondistended. PEG tube with no surrounding erythema. MUSCULOSKELETAL: No cyanosis, or edema. xamined sacral ulcer. No signs of infection. BACK: Nontender without obvious deformity. No CVA tenderness. A/P Assessment and Plan =========01/28/17 Fever. Ordered chest x-ray, urinalysis. Change Lopez prior to urinalysis. Check CBC, BMP in the morning. 1 year-old male with past medical history of paroxysmal A. fib, hypertension, stage III non-Hodgkin's lymphoma status post chemotherapy who came into the hospital with altered mental status. //PEG tube site cellulitis/Low grade fever -ID was consulted - wound culture positive for Kleb pneumo sensitive to Levaquin. - BCX negative - SP treatment with IV Levaquin x 5 days however there is still purulence observed. Continue wound care and will reculture site if fever. - A per Wound care recommendations. Cleanse around PEG tube site with normal saline and apply drain sponge around tube secure tube and drain sponge with medifix tape change as needed. Please use skin prep before applying adhesives to skin. Continue. 03/23 purulent discharge observed from PEG site - re ordered wound culture and will reconsult ID. 03/24 ID reconsulted recommendations pending. Patient with low grade fever overnight with a tmax of 99.7. Will start on Iv broad spectrum antibiotics ( Vancomycin and Zosyn IV), check blood cultures, CXR and urinalysis 03/25 UA (+) with urine culture growing gram negative rods. Continue IV zosyn and fu ID recommendations. blood cultures negative. Consult infectious GI to asses PEG tube. 03/26 GI recommendations pending regarding PEG tube. Continue IV zosyn for now. 03/27 No fevers. Continue antibiotics as per ID. Continue Zosyn, repeat cultures if febrile. Urine culture is growing pseudomonas. wound culture growing MDR pseudomonas. GI reconsulted however patient no seen yet. 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 - CT of the abdomen showed bladder mass right posteriorly with apparent extravesical extension and clot formation. - Urology spoke with family member, daughter, states that he's not recommending biopsy of the bladder mass. However daughter insisted on biopsy. Patient s/p cystoscopy and palliative transurethral resection of bladder tumor greater than 5 cm originating from right bladder wall performed by Dr. Sewell . 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 - Oncology following - appreciate their assistance. Family requesting aggressive therapy. CT chest negative for malignancy. MRI completed. Patient is not a candidate for chemotherapy. Family has decided on palliative XRT treatment and would like it to start MIGEL. Consult placed for radiation oncology. - Palliative care following, appreciate their assistance. - Continue to flush lopez catheter PRN. Monitor for recurrence of hematuria - Patient is currently undergoing radiation therapy. Monitor for side effects. - 03/28 Mild hematuria today, continue to monitor urine output or for side effects. Hold Coumadin for now until hematuria resolves. Resume Coumadin once hematuria resolves. -03/29. Continues on Coumadin. No observed hematuria. 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 Intermittently tracks with eyes. - Continue Keppra 500mg BID for seizure prophylaxis. Keppra level 17.8. - PT/OT signed off as patient is unable to participate. - On Paxil 20 by mouth daily for depression. - On acetaminophen with codeine for pain scale of 2-10. - cont Morphine 1 mg every 24 hours when necessary for dressing change //Chronic respiratory failure secondary to CVA - Status post tracheostomy. Continue pulmonary toilet and bronchodilators as needed. Continue trach care, suctioning. Increased secretions improved with scheduled Levsin. cont Levsin q8h. - Trach changed to size #6 XLT on 01/09 - Duo nebs every 4 hours while awake - Pulmonary currently following, appreciate assistance. //Atrial fibrillation. //Hypertension controlled. // Dyslipidemia - Continue rate control with Cardizem and metoprolol. - [id number] score 4 - Echocardiogram in November 2015 shows preserved ejection fraction. - 03/24 Coumadin discontinued secondary to bleeding from sacral wound. No active bleeding noted. Coumadin resumed Pharmacy to dose. INR supratherapeutic at 3.3. Hold coumadin and aspirin due to drop in hemoglobin. - No active bleeding noted. Therapeutic INR at 3.0. Pharmacy dosing. - 03/28 mild hematuria, INR down to 2.3. Today heart rate increased into the 120's. I will increase Cardizem dose from 30 mg to 60 mg QID. Check EKG==> no appreciable change on 03/28. // History of non-Hodgkin's lymphoma - Status post brain biopsy on December 13 by neurosurgery. Pathology consistent with acute infarct without evidence of lymphoma. // Diabetes mellitus Type 2 - Hemoglobin A1c is 5.5. - Fingersticks have been stable and were DC'd 02/01/17 - 03/24 Blood sugar uncontrolled - Will resume Accu-Cheks and SSI with insulin NovoLog. - 03/27 Blood sugar severely elevated in the 200's. Will start SQ Levir 5 units SQ BID. continue SSI with insulin Novolog. - 03/28 sugars still very elevated above the 200s. Will increase Levemir subcutaneously to 10 units subcutaneously twice a day. Continue SSI with insulin NovoLog. Continue to monitor Accu-Cheks. // Decubitus ulcer stage IV - Status post wide excision of sacral skin and biopsy of the cavity lining with debridement on 07/22/16. - Continue wound care, twice-daily dressing changes. Wound care recommendations last updated 12/12/16. Continue pressure relief measures including turning and positioning. - Patient's family has declined a diverting colostomy. Previous Wound culture growing Klebsiella and Enterococcus Faecalis. Previously on Augmentin. - Wound care last saw patient on 02/25/17, no new recommendations continue packing with Betadine moistened rolled Janis and covered with ABD pad and paper tape to secure. - Continue to monitor. Continue pressure-relief. - Morphine 1 mg every 24 hours when necessary for dressing change - confirmed with nursing staff continued dressing changes BID //Protein calorie malnutrition // Gastroesophageal reflux disease // Gastric ulcer, reflux esophagitis // Diarrhea, negative for C. difficile. - EGD on 07/30/16 showed gastric ulcers. Continue on Prevacid 30 mg Q12. - G/J tube clogged, IR consulted to evaluate. Replaced on 02/25/17 - TF held 03/16 due to emesis. No recurrence. TF resumed yesterday - patient tolerating. Experimental Flight Test [employer]ic consulted to assist with rate/needs. Per their recommendations, Rec increasing TF'ing 10ml/hr Q 6hr, as tolerated, to goal rate 55ml/hr. Rec to discontinue the Ashish r/t pt has received Ashish for Rec dosing of 4-weeks to promote new tissue growth. - Continue bowel regimen with hold parameters, Lactinex and Imodium. (+)BM overnight x 1. - 03/23 patient with increased loose stools as per rn repeat C diff PCR - negative // Klebsiella/Pseudomonas/staph aureus HCAP // PSAE UTI - S/p Cefepime. Monitor for signs of infections. - strep pneumonia and Legionella urinary Ag is negative - C-diff PCR negative on 01/13 - 01/09 BC : Staph Epi, Urine cx: Pseudomonas, Sputum cx: Pseudomonas, kleb, Staph. - Patient was pancultured on 01/19 (Blood, sputum, urine) NGTD in urine and blood. Sputum + for pseudomonas. Likely colonization. // Hyponatremia - 03/29Mild, sodium stable at 133 - continue to monitor BMP. // Anemia - sp transfusion of 1 unit of PRBC on 03/24. Hemoglobin responded appropriately from 6.8 and 8.1. - Stool Hemoccult negative. - Continue to monitor cbc. - 03/29 Hemoglobin stable at 7.8. Transfuse for hemoglobin < 7. // Oliguria - Likely due to dehydration. - Improving with IV fluids and increased free water via PEG. - 03/27 Continue free water. Fu BMP. DVT prophylaxis: Continue SCDs, Coumadin on hold. Discharge Planning appreciate case management assistance. Ramiro Rucker MD Mar 31, 2017 23:59
--- NOTE | 2017-04-01 00:50 | RADRPT ---
EXAM DATE/TIME: 04/01/2017 00:16 [facility] COMPARISON: CHEST SINGLE AP, March 27, 2017, 17:47. INDICATIONS : Cough. MEDICAL HISTORY : Hypercholesterolemia. Hypertension. Cerebrovascular accident. Atrial fibrillation. Diabetes. Depressi on. Anxiety. Carcinoma, lymphoma. MRSA. SURGICAL HISTORY : None. ENCOUNTER: Subsequent ACUITY: 3 months PAIN SCORE: 0/10 LOCATION: Bilateral chest FINDINGS: Tracheostomy in good position. Subsegmental basilar opacity most characteristic of atelectasis. Findi ngs similar to March 27. No effusion. No pneumothorax. CONCLUSION: 1. Subsegmental basilar air space disease. No significant change from March 27. No effusion or pne umothorax. Remote left rib fractures. Durga Dotson MD on April 01, 2017 at 0:45 Board Certified Radiologist. This report was verified electronically.
[2017-04-01 03:35] LABS: BACTERIA, URINE RARE /hpf; BLOOD, URINE MOD (NEG); COMMENT (UR) CULTURE INDICATED; CULTURE IF INDICATED CULTURE INDICATED; GLUCOSE,URINE NEG (NEG); KETONE, URINE NEG (NEG); MUCUS URINE FEW /lpf (OCC); NITRITE,URINE NEG (NEG); SQUAMOUS EPITHELIAL CELL URINE <1 /hpf (0-5); URINE COLOR YELLOW (YELLW/STRAW)
[2017-04-01 05:48] LABS: AUTOMATED NEUTROPHIL # 3.7 TH/MM3 (1.8-7.7); BASOPHIL % 0.5 % (0.0-2.0); EOSINOPHIL # 0.1 TH/MM3 (0-0.4); EOSINOPHIL % 1.6 % (0.0-4.0); LYMPH % 16.9 % (9.0-44.0); LYMPHOCYTE # 0.8 TH/MM3 (1.0-4.8); MEAN CELL VOLUME 70.7 FL (80.0-100.0); MEAN CORPUSCULAR HEMOGLOBIN 22.6 PG (27.0-34.0); MEAN CORPUSCULAR HGB CONC 31.9 % (32.0-36.0); MONO % 5.7 % (0.0-8.0); NEUT % 75.3 % (16.0-70.0); PLATELET COUNT 88 TH/MM3 (150-450); RED BLOOD COUNT 3.11 MIL/MM3 (4.50-5.90); WHITE BLOOD COUNT 4.9 TH/MM3 (4.0-11.0)
[2017-04-01 05:54] LABS: HEMO FLAGS AUTO DIFF; INTERNATIONAL NORMALIZED RATIO 1.8 RATIO; PROTHROMBIN TIME - PATIENT 20.8 SEC (9.8-11.6)
[2017-04-01 06:06] LABS: BICARBONATE 26.6 MEQ/L (21.0-32.0)
[2017-04-01] MEDS: HYOSCYAMINE 0.125 MG TAB G-TUBE SCH ×3 (06:30→22:16)
[2017-04-01] MEDS: PIPERACIL-TAZO 4.5 GM PREMIX 100 ML IV SCH ×3 (06:39→22:17)
[2017-04-01 06:45] LABS: OVALOCYTES 1+ (NORMAL); PLATELET ESTIMATE SMEAR LOW (NORMAL); PLATELET MORPHOLOGY NORMAL (NORMAL); SCAN/DIFF AUTO DIFF CONFIRMED
[2017-04-01] MEDS: ACETIC ACID 0.25% SOLN 1000 ML IRR BTL IRRIGATION SCH ×3 (06:47→22:00)
[2017-04-01] MEDS: INSULIN ASPART SUPPLEMENTAL SCALE SQ SCH ×4 (07:34→21:00)
[2017-04-01 08:00] VITALS: BP 128/77; PULSE 132; RESP 18; TEMP 97.5; O2SAT 94
[2017-04-01] MEDS: LANSOPRAZOLE SOLUTAB 30 MG TAB NG SCH ×2 (08:29→20:11)
[2017-04-01] MEDS: FERROUS SULFATE 300 MG /5ML UDC PO SCH (08:29)
[2017-04-01] MEDS: ASPIRIN 325 MG TAB TUBE SCH (08:29)
[2017-04-01] MEDS: LOPERAMIDE HCL SOLN 2 MG/10 ML UDC PEG PRN (08:29)
[2017-04-01] MEDS: DILTIAZEM HCL 30 MG TAB PEG SCH ×4 (08:29→20:11)
[2017-04-01] MEDS: ASCORBIC ACID 500 MG TAB PO SCH (08:29)
[2017-04-01] MEDS: ARTIFICIAL TEARS OPTH SOLN 15 ML BTL EACH EYE SCH ×2 (08:30→20:11)
[2017-04-01] MEDS: SODIUM CHLORIDE 0.65% NASAL SPRAY 45 ML BTL NASAL SCH ×2 (08:35→20:11)
[2017-04-01] MEDS: INSULIN DETEMIR 100 UNITS/ML VIAL SQ SCH ×2 (08:45→21:00)
[2017-04-01] MEDS: BACITRACIN TOP OINT 15 GM TUBE TOP SCH ×2 (08:49→20:11)
[2017-04-01] MEDS: BACITRACIN OINT 0.9 GM PKT TOPICAL SCH (08:50)
[2017-04-01] MEDS: levETIRAcetam 500 MG/5 ML UDC TUBE SCH ×2 (08:50→20:11)
[2017-04-01] MEDS: NYSTATIN 100,000 U/GM PWD 15 GM BTL TOPICAL SCH ×2 (08:50→20:11)
[2017-04-01 10:23] VITALS: O2SAT 96
[2017-04-01 11:16] VITALS: O2SAT 98
[2017-04-01 12:00] VITALS: BP 122/79; PULSE 124; RESP 17; TEMP 95.6; O2SAT 97
--- NOTE | 2017-04-01 13:06 | HHI.PR ---
Subjective Remarks ass OPENS EYES NO DISTRESS o2 sat 95%ON TTUBE small cell CA of urinary bladder elevated blood sugar Objective Vital Signs Date Time Temp Pulse Resp B/P (MAP) Pulse Ox O2 Delivery O2 Flow Rate FiO2 04/01/17 10:23 96 T-piece 4.00 28 04/01/17 08:00 T-Piece 6.00 28 04/01/17 08:00 97.5 132 18 128/77 (94) 94 03/31/17 21:00 T-Piece 5.00 28 03/31/17 20:00 96.7 116 24 117/69 (85) 96 03/31/17 18:10 99 T-piece 6.00 28 03/31/17 16:00 96.9 107 17 121/73 (89) 99 I/O 03/31/17 03/31/17 03/31/17 04/01/17 04/01/17 04/01/17 07:00 15:00 23:00 07:00 15:00 23:00 Intake Total 436 ml 0 ml 1035 ml 681 ml 100 ml Output Total 950 ml 700 ml 900 ml Balance -514 ml 0 ml 335 ml -219 ml 100 ml Intake Oral 0 ml 0 ml IV Total 200 ml 100 ml 100 ml 100 ml Tube Feeding 236 ml 935 ml 581 ml Output Urine Total 950 ml 700 ml 900 ml # Bowel Movements 4 3 Result Diagram: 04/01/1751404/01/1715 Procedures 07/22/2016 Wide excision of sacral skin wound, biopsy of the cavity lining and debridement. PEG removal and Gj tube placement 07/29/16 VAC changes- M-W-F 10/23/16, 11/18, 12/31- GJ tube replacement 01/02/16 PEG placement 01/02/16 tracheostomy 02/25/17 PEG replacement 03/03/17 Cystoscopy and palliative transurethral resection of bladder tumor greater than 5cm originating from the right bladder wall Objective Remarks GENERAL: SKIN: Warm and dry. HEAD: Atraumatic. Normocephalic. EYES: Pupils equal and round. No scleral icterus. No injection or drainage. ENT: No nasal bleeding or discharge. Mucous membranes pink and moist. NECK: Trachea midline. No JVD. CARDIOVASCULAR: Regular rate and rhythm. RESPIRATORY: No accessory muscle use. Clear to auscultation. Breath sounds equal bilaterally. GASTROINTESTINAL: Abdomen soft, non-tender, nondistended. Hepatic and splenic margins not palpable. MUSCULOSKELETAL: Extremities without clubbing, cyanosis, or edema. No obvious deformities. NEUROLOGICAL: Awake and alert. No obvious cranial nerve deficits. Motor grossly within normal limits. Five out of 5 muscle strength in the arms and legs. Normal speech. PSYCHIATRIC: Appropriate mood and affect; insight and judgment normal. Laboratory Tests Test 01/05/17 01/06/17 08:35 08:41 Red Blood Count 4.43 MIL/MM3 (4.50-5.90) Hemoglobin 9.9 GM/DL (13.0-17.0) Hematocrit 32.0 % (39.0-51.0) Mean Corpuscular Volume 72.1 FL (80.0-100.0) Mean Corpuscular Hemoglobin 22.3 PG (27.0-34.0) Mean Corpuscular Hemoglobin 30.9 % Concent (32.0-36.0) Red Cell Distribution Width 19.9 % (11.6-17.2) Sodium Level 134 MEQ/L 133 MEQ/L (136-145) (136-145) Random Glucose 136 MG/DL 132 MG/DL (74-106) (74-106) Creatinine 0.59 MG/DL (0.60-1.30) GENERAL: SKIN: Warm and dry. HEAD: Atraumatic. Normocephalic. EYES: Pupils equal and round. No scleral icterus. No injection or drainage. ENT: No nasal bleeding or discharge. Mucous membranes pink and moist. NECK: Trachea midline. No JVD. TRACH. [place] CARDIOVASCULAR: Regular rate and rhythm. RESPIRATORY: No accessory muscle use. Clear to auscultation. Breath sounds equal bilaterally. GASTROINTESTINAL: Abdomen soft, non-tender, nondistended. Hepatic and splenic margins not palpable. MUSCULOSKELETAL: Extremities without clubbing, cyanosis, or edema. No obvious deformities. NEUROLOGICAL: Awake and alert. No obvious cranial nerve deficits. Motor grossly within normal limits. Five out of 5 muscle strength in the arms and legs. Normal speech. PSYCHIATRIC: Appropriate mood and affect; insight and judgment normal. Assessment and Plan Assessment and Plan impression respiratory failure CVA S/P TRACHEOSTOMY SMALL CELL CA OF THE URINARY BLADDER PLAN on antibiotics receiving packed red cells O2 NEEDED PULM. TOILET Brandon Taylor MD Apr 01, 2017 13:06
[2017-04-01] MEDS: SODIUM CHLOR 0.9% 1000 ML INJ 1,000 ML IV SCH (13:18)
[2017-04-01 13:29] LABS: INDIRECT BILIRUBIN 0.1 MG/DL (0.0-0.8); TOTAL BILIRUBIN ADULT 0.2 MG/DL (0.2-1.0)
[2017-04-01 16:00] VITALS: BP 124/75; PULSE 119; RESP 17; TEMP 96; O2SAT 97
--- NOTE | 2017-04-01 16:57 | HHI.IDPN ---
Subjective Subjective Remarks + fever today + diarrhea yday tolerating Tpiece Antibiotics zosyn Lines Peripheral IV Past Medical History Hypertension. Stage III non-Hodgkin's lymphoma. Diabetes mellitus. Paroxysmal atrial fibrillation. Brain biopsy in Nov, 2015. History of left arm surgery. 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 Vital Signs Date Time Temp Pulse Resp B/P (MAP) Pulse Ox O2 Delivery O2 Flow Rate FiO2 04/01/17 12:00 95.6 124 17 122/79 (93) 97 04/01/17 10:23 96 T-piece 4.00 28 04/01/17 08:00 T-Piece 6.00 28 04/01/17 08:00 97.5 132 18 128/77 (94) 94 03/31/17 21:00 T-Piece 5.00 28 03/31/17 20:00 96.7 116 24 117/69 (85) 96 03/31/17 18:10 99 T-piece 6.00 28 04/01/17 04/01/17 04/02/17 15:00 23:00 07:00 Intake Total 100 ml Balance 100 ml IV Total 100 ml . Laboratory Tests Test 04/01/17 05:15 White Blood Count 4.9 TH/MM3 Red Blood Count 3.11 MIL/MM3 Hemoglobin 7.0 GM/DL Hematocrit 22.0 % Mean Corpuscular Volume 70.7 FL Mean Corpuscular Hemoglobin 22.6 PG Mean Corpuscular Hemoglobin Concent 31.9 % Red Cell Distribution Width 21.0 % Platelet Count 88 TH/MM3 Mean Platelet Volume 8.8 FL Neutrophils (%) (Auto) 75.3 % Lymphocytes (%) (Auto) 16.9 % Monocytes (%) (Auto) 5.7 % Eosinophils (%) (Auto) 1.6 % Basophils (%) (Auto) 0.5 % Neutrophils # (Auto) 3.7 TH/MM3 Lymphocytes # (Auto) 0.8 TH/MM3 Monocytes # (Auto) 0.3 TH/MM3 Eosinophils # (Auto) 0.1 TH/MM3 Basophils # (Auto) 0.0 TH/MM3 CBC Comment AUTO DIFF Differential Comment AUTO DIFF CONFIRMED Platelet Estimate LOW Platelet Morphology Comment NORMAL Ovalocytes 1+ Laboratory Tests Test 04/01/17 05:15 Blood Urea Nitrogen 22 MG/DL Creatinine 1.45 MG/DL Random Glucose 207 MG/DL Calcium Level 9.2 MG/DL Sodium Level 134 MEQ/L Potassium Level 4.0 MEQ/L Chloride Level 99 MEQ/L Carbon Dioxide Level 26.6 MEQ/L Anion Gap 8 MEQ/L Estimat Glomerular Filtration Rate 49 ML/MIN Total Bilirubin 0.2 MG/DL Direct Bilirubin 0.1 MG/DL Indirect Bilirubin 0.1 MG/DL Aspartate Amino Transf (AST/SGOT) 124 U/L Alanine Aminotransferase (ALT/SGPT) 23 U/L Alkaline Phosphatase 217 U/L Total Protein 8.0 GM/DL Albumin 2.0 GM/DL Microbiology Date/Time Source Procedure Growth Status 04/01/17 03:07 Urine Catheterized Urine Urine Culture Pending Worksheet Imaging Last Impressions Chest X-Ray 03/24/17 0000 Signed Impressions: Service Date/Time: Friday, March 24, 2017 12:37 - CONCLUSION: Minimal increase consolidation left base. No significant failure. Octavio Ramírez MD FACR Brain MRI 03/14/17 0000 Signed Impressions: Service Date/Time: Tuesday, March 14, 2017 12:41 - CONCLUSION: The signal abnormality and enhancement within the bilateral occipital lobes and colin have decreased since the prior examinations. No new abnormality is identified. There is no new enhancing area or signs of a recent ischemia. Geln Gordon MD Chest CT 03/10/17 0000 Signed Impressions: Service Date/Time: Friday, March 10, 2017 21:00 - CONCLUSION: 1. Periaortic soft tissue along the proximal descending thoracic aorta not previously seen. This represents either lymphomatous involvement or adjacent consolidated airspace disease. 2. Mild bilateral airspace disease 3. No evidence of significant lymphadenopathy involving the mediastinum, hilar regions, axillas or supraclavicular lore chain. 4. Tracheostomy tube in place. Ernesto Kulkarni MD Abdomen/Pelvis CT 02/27/17 0000 Signed Impressions: Service Date/Time: February 02:24 - CONCLUSION: 1. Abdominal aortic aneurysm. 2. Bladder mass is noted on the right posteriorly with apparent extravesical extension and clot formation. 3. Left renal cyst. 4. Left lower lobe atelectasis. 5. Large sacral decubitus ulcer with bony destruction and sclerosis of the sacrum mid to left lateral portion in the region of S3 and inferiorly which would suggest chronic osteomyelitis in the appropriate clinical setting. Rajan Granados MD Soft Tissue Ultrasound 02/26/17 0000 Signed Impressions: Service Date/Time: Sunday, February 26, 2017 12:52 - CONCLUSION: 1. Just inferior to the G-tube in the left abdomen, there is a superficial 3.8 x 2.9 0.9 cm complex fluid collection in the subcutaneous tissues. 2. Findings are nonspecific. This could represent a small seroma or abscess. Would consider CT scan of the abdomen without contrast for further evaluation to determine if there is intraperitoneal extension. Bobby Gray MD Gastrostomy Tube Placement 02/25/17 0000 Signed Impressions: Service Date/Time: Saturday, February 25, 2017 14:19 - CONCLUSION: Uncomplicated exchange of gastroenteric feeding tube for gastrostomy tube as above. Positioning confirmed. The tube can be used immediately. Glen Zamora MD Tube Change 02/14/17 0000 Signed Impressions: Service Date/Time: Tuesday, February 14, 2017 00:00 - CONCLUSION: Uncomplicated gastrojejunostomy tube exchange as above. Scott Griffin MD Head CT 01/09/17 0000 Signed Impressions: Service Date/Time: December 17:43 - CONCLUSION: 1. No acute hemorrhage or mass effect. 2. 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 3. Atrophy. Gerald Mukherjee MD CT Angiography 01/09/17 0000 Signed Impressions: Service Date/Time: December 17:49 - CONCLUSION: 1. No evidence of pulmonary emboli. 2. Patchy consolidation in both posterior lower lobes right greater than left. This could represent pneumonia. 3. 2 small noncalcified pulmonary nodules which are nonspecific finding. Short-term CT followup is recommended beginning in 6 months with a noncontrast outpatient CT. Gerald Mukherjee MD Tube Check 12/04/16 0000 Signed Impressions: Service Date/Time: Sunday, December 04, 2016 17:58 - CONCLUSION: Uncomplicated tube injection as above. the tube is in good position and functions normally. Moises Ramírez MD Abdomen X-Ray 08/31/16 0000 Signed Impressions: Service Date/Time: Wednesday, August 31, 2016 16:36 - CONCLUSION: 1. No acute findings. Mild constipation. Durga Dotson MD Head Magnetic Resonance Angiography 03/05/16 0000 Signed Impressions: Service Date/Time: Saturday, March 05, 2016 09:26 - CONCLUSION: Persistent high-grade subtotal occlusive stenotic lesions in the distal right vertebral artery and proximal basilar artery with significant improvement in flow and recanalization following initial presentation of thrombosis. Stable interstitial circulation without significant stenosis. Ernesto Kulkarni MD Neck Magnetic Resonance Angiography 12/22/15 1445 Signed Impressions: Service Date/Time: Tuesday, December 22, 2015 09:22 - CONCLUSION: Variant origin of the left vertebral artery from the aortic arch. No evidence of carotid stenosis. Glen Zamora MD Head/Brain Mag Res Venography 12/22/15 0000 Signed Impressions: Service Date/Time: Tuesday, December 22, 2015 09:22 - CONCLUSION: Normal MRV. Jonel Jones Jr., MD Physical Exam GENERAL: eyes opened , NAD SKIN: Warm to touch and dry. No generalized rash HEENT: [place] conjunctiva. . No scleral icterus. No injection or drainage. Mucous membranes pink and moist. NECK: Tracheostomy site looks okay. No secretions in the tubings noted CARDIOVASCULAR: Regular rate and rhythm. No murmur or rub. RESPIRATORY: clear to auscultation ABDOMEN: Soft, obese, non-tender, not distended. PEG site with small area of macerated scin, no purulence BS (+) normoactive EXTREMITIES: No clubbing, cyanosis. MIld pedal edema. NEUROLOGICAL: resting , not following. Eyes opened, tracks MS is at b/l PSYCH: Unable to assess ; lopez in place, urine looks clear , light yellow Assessment & Plan Remarks IMPRESSION Fever sepsis CVA, with significant neurologic sequela Hx NHL Minimal perihilar infiltrate is present stage IV decub with no e/o infx Superficial appaering PEG anne marie infection, sp treatment - not a[pearing as infx, drainage more likely slighlty laking tube feeds Worsening renal fnx Fever UTI, PSAE Diarrhea, abx assciated RECOMMENDATION cont zosyn chk urine eosinophils repeat blood cultures if spikes again fu urine clx dw mother @ bs Violetta Alvarez MD Apr 01, 2017 16:56
[2017-04-01] MEDS: WARFARIN SOD 3 MG TAB PO SCH (18:26)
[2017-04-01] MEDS: PARoxetine HCL SUSP 20 MG/10 ML UDC PEG SCH (18:26)
[2017-04-01 20:00] VITALS: BP 113/71; PULSE 112; RESP 19; TEMP 98.4; O2SAT 95
--- NOTE | 2017-04-01 22:44 | HHI.PR ---
Subjective Remarks Patient seen this morning around 11 AM. No acute changes. Patient appears to deny pain Anemia. Slow decrease. No signs of bleeding. Follow-up labs tomorrow. Fever 03/31. None today. No signs of acute infection. Infectious disease following. Continue Zosyn. Appreciate assistance. Objective Vital Signs Date Time Temp Pulse Resp B/P (MAP) Pulse Ox O2 Delivery O2 Flow Rate FiO2 04/01/17 20:00 98.4 112 19 113/71 (85) 95 04/01/17 16:00 96.0 119 17 124/75 (91) 97 04/01/17 12:00 95.6 124 17 122/79 (93) 97 04/01/17 10:23 96 T-piece 4.00 28 04/01/17 08:00 T-Piece 6.00 28 04/01/17 08:00 97.5 132 18 128/77 (94) 94 I/O 03/31/17 03/31/17 03/31/17 04/01/17 04/01/17 04/01/17 06:59 14:59 22:59 06:59 14:59 22:59 Intake Total 436 ml 0 ml 1035 ml 681 ml 100 ml 0 ml Output Total 950 ml 700 ml 900 ml 800 ml Balance -514 ml 0 ml 335 ml -219 ml 100 ml -800 ml Intake Oral 0 ml 0 ml 0 ml IV Total 200 ml 100 ml 100 ml 100 ml Tube Feeding 236 ml 935 ml 581 ml Output Urine Total 950 ml 700 ml 900 ml 800 ml # Bowel Movements 4 3 1 Result Diagram: 04/01/17 0515 04/01/17 0515 Procedures 07/22/2016 Wide excision of sacral skin wound, biopsy of the cavity lining and debridement. PEG removal and Gj tube placement 07/29/16 VAC changes- M-W-F 10/23/16, 11/18, 12/31- GJ tube replacement 01/02/16 PEG placement 01/02/16 tracheostomy 02/25/17 PEG replacement 03/03/17 Cystoscopy and palliative transurethral resection of bladder tumor greater than 5cm originating from the right bladder wall Objective Remarks GENERAL: pt sitting up in bed. Appears comfortable. appears to deny pain family member again. HEAD: Normocephalic. EYES: No scleral icterus. No injection or drainage. NECK: Supple, trachea midline. No JVD. CARDIOVASCULAR: Regular rate and rhythm without murmurs, gallops, or rubs. RESPIRATORY: Breath sounds equal bilaterally. No accessory muscle use. GASTROINTESTINAL: Abdomen soft, non-tender, nondistended. PEG tube with no surrounding erythema. MUSCULOSKELETAL: No cyanosis, or edema. 75examined sacral ulcer. No signs of infection. BACK: Nontender without obvious deformity. No CVA tenderness. A/P Assessment and Plan =========01/29/17 Anemia. Slow decrease. Hemoglobin 7.0 No signs of bleeding. Follow-up labs tomorrow. Fever 03/31. None today. No signs of acute infection. Infectious disease following. Continue Zosyn. Appreciate assistance. //Elevated AST, alkaline phosphatase. Labs ordered to check for occult source of fever. Ordered liver ultrasound for rule out of fever. //Acute kidney injury. Creatinine 1.4 from 1.19. Small fluid bolus and started on fluids. Recheck tomorrow. 1 year-old male with past medical history of paroxysmal A. fib, hypertension, stage III non-Hodgkin's lymphoma status post chemotherapy who came into the hospital with altered mental status. //PEG tube site cellulitis/Low grade fever -ID was consulted - wound culture positive for Kleb pneumo sensitive to Levaquin. - BCX negative - SP treatment with IV Levaquin x 5 days however there is still purulence observed. Continue wound care and will reculture site if fever. - A per Wound care recommendations. Cleanse around PEG tube site with normal saline and apply drain sponge around tube secure tube and drain sponge with medifix tape change as needed. Please use skin prep before applying adhesives to skin. Continue. 03/23 purulent discharge observed from PEG site - re ordered wound culture and will reconsult ID. 03/24 ID reconsulted recommendations pending. Patient with low grade fever overnight with a tmax of 99.7. Will start on Iv broad spectrum antibiotics ( Vancomycin and Zosyn IV), check blood cultures, CXR and urinalysis 03/25 UA (+) with urine culture growing gram negative rods. Continue IV zosyn and fu ID recommendations. blood cultures negative. Consult infectious GI to asses PEG tube. 03/26 GI recommendations pending regarding PEG tube. Continue IV zosyn for now. 03/27 No fevers. Continue antibiotics as per ID. Continue Zosyn, repeat cultures if febrile. Urine culture is growing pseudomonas. wound culture growing MDR pseudomonas. GI reconsulted however patient no seen yet. 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 - CT of the abdomen showed bladder mass right posteriorly with apparent extravesical extension and clot formation. - Urology spoke with family member, daughter, states that he's not recommending biopsy of the bladder mass. However daughter insisted on biopsy. Patient s/p cystoscopy and palliative transurethral resection of bladder tumor greater than 5 cm originating from right bladder wall performed by Dr. Sewell . 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 - Oncology following - appreciate their assistance. Family requesting aggressive therapy. CT chest negative for malignancy. MRI completed. Patient is not a candidate for chemotherapy. Family has decided on palliative XRT treatment and would like it to start MIGEL. Consult placed for radiation oncology. - Palliative care following, appreciate their assistance. - Continue to flush lopez catheter PRN. Monitor for recurrence of hematuria - Patient is currently undergoing radiation therapy. Monitor for side effects. - 03/28 Mild hematuria today, continue to monitor urine output or for side effects. Hold Coumadin for now until hematuria resolves. Resume Coumadin once hematuria resolves. -03/29. Continues on Coumadin. No observed hematuria. 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 Intermittently tracks with eyes. - Continue Keppra 500mg BID for seizure prophylaxis. Keppra level 17.8. - PT/OT signed off as patient is unable to participate. - On Paxil 20 by mouth daily for depression. - On acetaminophen with codeine for pain scale of 2-10. - cont Morphine 1 mg every 24 hours when necessary for dressing change //Chronic respiratory failure secondary to CVA - Status post tracheostomy. Continue pulmonary toilet and bronchodilators as needed. Continue trach care, suctioning. Increased secretions improved with scheduled Levsin. cont Levsin q8h. - Trach changed to size #6 XLT on 01/09 - Duo nebs every 4 hours while awake - Pulmonary currently following, appreciate assistance. //Atrial fibrillation. //Hypertension controlled. // Dyslipidemia - Continue rate control with Cardizem and metoprolol. - [id number] score 4 - Echocardiogram in November 2015 shows preserved ejection fraction. - 03/24 Coumadin discontinued secondary to bleeding from sacral wound. No active bleeding noted. Coumadin resumed Pharmacy to dose. INR supratherapeutic at 3.3. Hold coumadin and aspirin due to drop in hemoglobin. - No active bleeding noted. Therapeutic INR at 3.0. Pharmacy dosing. - 03/28 mild hematuria, INR down to 2.3. Today heart rate increased into the 120's. I will increase Cardizem dose from 30 mg to 60 mg QID. Check EKG==> no appreciable change on 03/28. // History of non-Hodgkin's lymphoma - Status post brain biopsy on December 13 by neurosurgery. Pathology consistent with acute infarct without evidence of lymphoma. // Diabetes mellitus Type 2 - Hemoglobin A1c is 5.5. - Fingersticks have been stable and were DC'd 02/01/17 - 03/24 Blood sugar uncontrolled - Will resume Accu-Cheks and SSI with insulin NovoLog. - 03/27 Blood sugar severely elevated in the 200's. Will start SQ Levir 5 units SQ BID. continue SSI with insulin Novolog. - 03/28 sugars still very elevated above the 200s. Will increase Levemir subcutaneously to 10 units subcutaneously twice a day. Continue SSI with insulin NovoLog. Continue to monitor Accu-Cheks. // Decubitus ulcer stage IV - Status post wide excision of sacral skin and biopsy of the cavity lining with debridement on 07/22/16. - Continue wound care, twice-daily dressing changes. Wound care recommendations last updated 12/12/16. Continue pressure relief measures including turning and positioning. - Patient's family has declined a diverting colostomy. Previous Wound culture growing Klebsiella and Enterococcus Faecalis. Previously on Augmentin. - Wound care last saw patient on 02/25/17, no new recommendations continue packing with Betadine moistened rolled Janis and covered with ABD pad and paper tape to secure. - Continue to monitor. Continue pressure-relief. - Morphine 1 mg every 24 hours when necessary for dressing change - confirmed with nursing staff continued dressing changes BID //Protein calorie malnutrition // Gastroesophageal reflux disease // Gastric ulcer, reflux esophagitis // Diarrhea, negative for C. difficile. - EGD on 07/30/16 showed gastric ulcers. Continue on Prevacid 30 mg Q12. - G/J tube clogged, IR consulted to evaluate. Replaced on 02/25/17 - TF held 03/16 due to emesis. No recurrence. TF resumed yesterday - patient tolerating. [employer] consulted to assist with rate/needs. Per their recommendations, Rec increasing TF'ing 10ml/hr Q 6hr, as tolerated, to goal rate 55ml/hr. Rec to discontinue the Ashish r/t pt has received Ashish for Rec dosing of 4-weeks to promote new tissue growth. - Continue bowel regimen with hold parameters, Lactinex and Imodium. (+)BM overnight x 1. - 03/23 patient with increased loose stools as per rn repeat C diff PCR - negative // Klebsiella/Pseudomonas/staph aureus HCAP // PSAE UTI - S/p Cefepime. Monitor for signs of infections. - strep pneumonia and Legionella urinary Ag is negative - C-diff PCR negative on 01/13 - 01/09 BC : Staph Epi, Urine cx: Pseudomonas, Sputum cx: Pseudomonas, kleb, Staph. - Patient was pancultured on 01/19 (Blood, sputum, urine) NGTD in urine and blood. Sputum + for pseudomonas. Likely colonization. // Hyponatremia - 04/01 Mild, sodium stable at 134 - continue to monitor BMP. // Anemia - sp transfusion of 1 unit of PRBC on 03/24. Hemoglobin responded appropriately from 6.8 and 8.1. - Stool Hemoccult negative. - Continue to monitor cbc. - 04/01 Hemoglobin decr at 7.0. Transfuse for hemoglobin < 7. // Oliguria - Likely due to dehydration. - Improving with IV fluids and increased free water via PEG. - 03/27 Continue free water. Fu BMP. DVT prophylaxis: Continue SCDs, Coumadin on hold. Discharge Planning appreciate case management assistance. May be going to SNF soon. Ramiro Rucker MD Apr 01, 2017 22:44
[2017-04-02] VITALS: BP 123/67; PULSE 108; RESP 19; TEMP 99.5; O2SAT 98
[2017-04-02] MEDS: ACETIC ACID 0.25% SOLN 1000 ML IRR BTL IRRIGATION SCH ×3 (06:00→20:56)
[2017-04-02] MEDS: PIPERACIL-TAZO 4.5 GM PREMIX 100 ML IV SCH ×3 (06:18→20:56)
[2017-04-02] MEDS: HYOSCYAMINE 0.125 MG TAB G-TUBE SCH ×3 (06:18→20:56)
[2017-04-02] MEDS: ARTIFICIAL TEARS OPTH SOLN 15 ML BTL EACH EYE SCH ×2 (07:13→20:55)
[2017-04-02] MEDS: ASPIRIN 325 MG TAB TUBE SCH (07:13)
[2017-04-02] MEDS: FERROUS SULFATE 300 MG /5ML UDC PO SCH (07:13)
[2017-04-02] MEDS: DILTIAZEM HCL 30 MG TAB PEG SCH ×4 (07:14→20:55)
[2017-04-02] MEDS: LANSOPRAZOLE SOLUTAB 30 MG TAB NG SCH ×2 (07:14→20:55)
[2017-04-02] MEDS: ASCORBIC ACID 500 MG TAB PO SCH (07:14)
[2017-04-02] MEDS: INSULIN DETEMIR 100 UNITS/ML VIAL SQ SCH ×2 (07:15→21:00)
[2017-04-02] MEDS: NYSTATIN 100,000 U/GM PWD 15 GM BTL TOPICAL SCH ×2 (07:16→20:56)
[2017-04-02] MEDS: levETIRAcetam 500 MG/5 ML UDC TUBE SCH ×2 (07:16→20:56)
[2017-04-02] MEDS: BACITRACIN TOP OINT 15 GM TUBE TOP SCH ×2 (07:16→20:56)
[2017-04-02] MEDS: SODIUM CHLORIDE 0.65% NASAL SPRAY 45 ML BTL NASAL SCH ×2 (07:19→20:55)
[2017-04-02] MEDS: BACITRACIN OINT 0.9 GM PKT TOPICAL SCH (07:19)
[2017-04-02] MEDS: SODIUM CHLOR 0.9% 1000 ML INJ 1,000 ML IV SCH (07:20)
[2017-04-02 08:00] VITALS: BP 123/68; PULSE 126; RESP 32; TEMP 99.5; O2SAT 98
[2017-04-02] MEDS: INSULIN ASPART SUPPLEMENTAL SCALE SQ SCH ×3 (08:00→21:00)
[2017-04-02 08:13] LABS: AUTOMATED NEUTROPHIL # 3.3 TH/MM3 (1.8-7.7); BASOPHIL % 0.6 % (0.0-2.0); EOSINOPHIL # 0.1 TH/MM3 (0-0.4); EOSINOPHIL % 3.2 % (0.0-4.0); LYMPH % 18.5 % (9.0-44.0); LYMPHOCYTE # 0.8 TH/MM3 (1.0-4.8); MEAN CELL VOLUME 71.4 FL (80.0-100.0); MEAN CORPUSCULAR HEMOGLOBIN 22.4 PG (27.0-34.0); MEAN CORPUSCULAR HGB CONC 31.3 % (32.0-36.0); NEUT % 71.7 % (16.0-70.0); PLATELET COUNT 78 TH/MM3 (150-450); RED BLOOD COUNT 3.07 MIL/MM3 (4.50-5.90); RED CELL DISTRIBUTION WIDTH 21.1 % (11.6-17.2); WHITE BLOOD COUNT 4.5 TH/MM3 (4.0-11.0)
[2017-04-02 08:15] LABS: INTERNATIONAL NORMALIZED RATIO 1.7 RATIO; PROTHROMBIN TIME - PATIENT 19.8 SEC (9.8-11.6)
[2017-04-02 08:21] LABS: HEMO FLAGS AUTO DIFF
[2017-04-02 08:36] LABS: BICARBONATE 25.4 MEQ/L (21.0-32.0); POTASSIUM 3.7 MEQ/L (3.5-5.1)
[2017-04-02 09:10] LABS: BANDS 7 % (0-6); EOSINOPHILS 4 % (0-4); METAMYELOCYTES 1 % (0-1); MYELOCYTES 2 % (0-0); NEUTROPHIL # MANUAL DIFF 3.6 TH/MM3 (1.8-7.7); PLATELET ESTIMATE SMEAR LOW (NORMAL); PLATELET MORPHOLOGY NORMAL (NORMAL); POLYS (SEG NEUTROPHILS) 70 % (16-70); SCAN/DIFF FINAL DIFF MANUAL; WBC DIFF SAMPLE 100
[2017-04-02 12:00] VITALS: BP 120/66; PULSE 117; RESP 32; TEMP 99.6; O2SAT 97
--- NOTE | 2017-04-02 12:38 | HHI.PR ---
Subjective Remarks ass OPENS EYES NO DISTRESS o2 sat 95%ON TTUBE small cell CA of urinary bladder SLIGHT HEAM IN URINE Objective Vital Signs Date Time Temp Pulse Resp B/P (MAP) Pulse Ox O2 Delivery O2 Flow Rate FiO2 04/02/17 08:00 99.5 126 32 123/68 (86) 98 04/02/17 07:00 Trach Collar 5.00 28 T-Piece 04/02/17 00:00 99.5 108 19 123/67 (85) 98 04/01/17 20:00 98.4 112 19 113/71 (85) 95 04/01/17 19:00 97 T-Piece 5.00 04/01/17 16:00 96.0 119 17 124/75 (91) 97 I/O 04/01/17 04/01/17 04/01/17 04/02/17 04/02/17 04/02/17 07:00 15:00 23:00 07:00 15:00 23:00 Intake Total 681 ml 100 ml 0 ml 0 ml Output Total 900 ml 800 ml 600 ml Balance -219 ml 100 ml -800 ml -600 ml Intake Oral 0 ml 0 ml IV Total 100 ml 100 ml Tube Feeding 581 ml Output Urine Total 900 ml 800 ml 600 ml # Bowel Movements 3 1 1 Result Diagram: 04/02/17 0711 04/02/17 0711 Procedures 07/22/2016 Wide excision of sacral skin wound, biopsy of the cavity lining and debridement. PEG removal and Gj tube placement 07/29/16 VAC changes- M-W-F 10/23/16, 11/18, 12/31- GJ tube replacement 01/02/16 PEG placement 01/02/16 tracheostomy 02/25/17 PEG replacement 03/03/17 Cystoscopy and palliative transurethral resection of bladder tumor greater than 5cm originating from the right bladder wall Objective Remarks GENERAL: SKIN: Warm and dry. HEAD: Atraumatic. Normocephalic. EYES: Pupils equal and round. No scleral icterus. No injection or drainage. ENT: No nasal bleeding or discharge. Mucous membranes pink and moist. NECK: Trachea midline. No JVD. CARDIOVASCULAR: Regular rate and rhythm. RESPIRATORY: No accessory muscle use. Clear to auscultation. Breath sounds equal bilaterally. GASTROINTESTINAL: Abdomen soft, non-tender, nondistended. Hepatic and splenic margins not palpable. MUSCULOSKELETAL: Extremities without clubbing, cyanosis, or edema. No obvious deformities. NEUROLOGICAL: Awake and alert. No obvious cranial nerve deficits. Motor grossly within normal limits. Five out of 5 muscle strength in the arms and legs. Normal speech. PSYCHIATRIC: Appropriate mood and affect; insight and judgment normal. Laboratory Tests Test 01/05/17 01/06/17 08:35 08:41 Red Blood Count 4.43 MIL/MM3 (4.50-5.90) Hemoglobin 9.9 GM/DL (13.0-17.0) Hematocrit 32.0 % (39.0-51.0) Mean Corpuscular Volume 72.1 FL (80.0-100.0) Mean Corpuscular Hemoglobin 22.3 PG (27.0-34.0) Mean Corpuscular Hemoglobin 30.9 % Concent (32.0-36.0) Red Cell Distribution Width 19.9 % (11.6-17.2) Sodium Level 134 MEQ/L 133 MEQ/L (136-145) (136-145) Random Glucose 136 MG/DL 132 MG/DL (74-106) (74-106) Creatinine 0.59 MG/DL (0.60-1.30) GENERAL: SKIN: Warm and dry. HEAD: Atraumatic. Normocephalic. EYES: Pupils equal and round. No scleral icterus. No injection or drainage. ENT: No nasal bleeding or discharge. Mucous membranes pink and moist. NECK: Trachea midline. No JVD. TRACH. [place] CARDIOVASCULAR: Regular rate and rhythm. RESPIRATORY: No accessory muscle use. Clear to auscultation. Breath sounds equal bilaterally. GASTROINTESTINAL: Abdomen soft, non-tender, nondistended. Hepatic and splenic margins not palpable. MUSCULOSKELETAL: Extremities without clubbing, cyanosis, or edema. No obvious deformities. NEUROLOGICAL: Awake and alert. No obvious cranial nerve deficits. Motor grossly within normal limits. Five out of 5 muscle strength in the arms and legs. Normal speech. PSYCHIATRIC: Appropriate mood and affect; insight and judgment normal. Assessment and Plan Assessment and Plan impression respiratory failure CVA S/P TRACHEOSTOMY SMALL CELL CA OF THE URINARY BLADDER PLAN on antibiotics receiving packed red cells O2 NEEDED PULM. TOILET Brandon Taylor MD Apr 02, 2017 12:38
--- NOTE | 2017-04-02 14:50 | HHI.PR ---
Subjective Remarks non verbal, does open his eyes ex at bedside no concerns at this time. discussed w RN earlier, pt's Hb <7. Objective Vitals Vital Signs Date Time Temp Pulse Resp B/P (MAP) Pulse Ox O2 Delivery O2 Flow Rate FiO2 04/02/17 12:00 99.6 117 32 120/66 (84) 97 04/02/17 08:00 99.5 126 32 123/68 (86) 98 04/02/17 07:00 Trach Collar 5.00 28 T-Piece 04/02/17 00:00 99.5 108 19 123/67 (85) 98 04/01/17 20:00 98.4 112 19 113/71 (85) 95 04/01/17 19:00 97 T-Piece 5.00 04/01/17 16:00 96.0 119 17 124/75 (91) 97 I/O 04/01/17 04/01/17 04/01/17 04/02/17 04/02/17 04/02/17 07:00 15:00 23:00 07:00 15:00 23:00 Intake Total 681 ml 100 ml 0 ml 0 ml Output Total 900 ml 800 ml 600 ml Balance -219 ml 100 ml -800 ml -600 ml Intake Oral 0 ml 0 ml IV Total 100 ml 100 ml Tube Feeding 581 ml Output Urine Total 900 ml 800 ml 600 ml # Bowel Movements 3 1 1 Result Diagram: 04/02/17 0711 04/02/17 0711 Imaging Last Impressions Chest X-Ray 03/31/17 0000 Signed Impressions: Service Date/Time: Saturday, April 01, 2017 00:16 - CONCLUSION: 1. Subsegmental basilar air space disease. No significant change from March 27. No effusion or pneumothorax. Remote left rib fractures. Durga Dotson MD Brain MRI 03/14/17 0000 Signed Impressions: Service Date/Time: Tuesday, March 14, 2017 12:41 - CONCLUSION: The signal abnormality and enhancement within the bilateral occipital lobes and colin have decreased since the prior examinations. No new abnormality is identified. There is no new enhancing area or signs of a recent ischemia. Glen Gordon MD Chest CT 03/10/17 0000 Signed Impressions: Service Date/Time: Friday, March 10, 2017 21:00 - CONCLUSION: 1. Periaortic soft tissue along the proximal descending thoracic aorta not previously seen. This represents either lymphomatous involvement or adjacent consolidated airspace disease. 2. Mild bilateral airspace disease 3. No evidence of significant lymphadenopathy involving the mediastinum, hilar regions, axillas or supraclavicular lore chain. 4. Tracheostomy tube in place. Ernesto Kulkarni MD Abdomen/Pelvis CT 02/27/17 0000 Signed Impressions: Service Date/Time: February 02:24 - CONCLUSION: 1. Abdominal aortic aneurysm. 2. Bladder mass is noted on the right posteriorly with apparent extravesical extension and clot formation. 3. Left renal cyst. 4. Left lower lobe atelectasis. 5. Large sacral decubitus ulcer with bony destruction and sclerosis of the sacrum mid to left lateral portion in the region of S3 and inferiorly which would suggest chronic osteomyelitis in the appropriate clinical setting. Rajan Granados MD Soft Tissue Ultrasound 02/26/17 0000 Signed Impressions: Service Date/Time: Sunday, February 26, 2017 12:52 - CONCLUSION: 1. Just inferior to the G-tube in the left abdomen, there is a superficial 3.8 x 2.9 0.9 cm complex fluid collection in the subcutaneous tissues. 2. Findings are nonspecific. This could represent a small seroma or abscess. Would consider CT scan of the abdomen without contrast for further evaluation to determine if there is intraperitoneal extension. Bobby Gray MD Gastrostomy Tube Placement 02/25/17 0000 Signed Impressions: Service Date/Time: Saturday, February 25, 2017 14:19 - CONCLUSION: Uncomplicated exchange of gastroenteric feeding tube for gastrostomy tube as above. Positioning confirmed. The tube can be used immediately. Glen Zamora MD Tube Change 02/14/17 0000 Signed Impressions: Service Date/Time: Tuesday, February 14, 2017 00:00 - CONCLUSION: Uncomplicated gastrojejunostomy tube exchange as above. Scott Griffin MD Head CT 01/09/17 0000 Signed Impressions: Service Date/Time: December 17:43 - CONCLUSION: 1. No acute hemorrhage or mass effect. 2. 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 3. Atrophy. Gerald Mukherjee MD CT Angiography 01/09/17 0000 Signed Impressions: Service Date/Time: December 17:49 - CONCLUSION: 1. No evidence of pulmonary emboli. 2. Patchy consolidation in both posterior lower lobes right greater than left. This could represent pneumonia. 3. 2 small noncalcified pulmonary nodules which are nonspecific finding. Short-term CT followup is recommended beginning in 6 months with a noncontrast outpatient CT. Gerald Mukherjee MD Tube Check 12/04/16 0000 Signed Impressions: Service Date/Time: Sunday, December 04, 2016 17:58 - CONCLUSION: Uncomplicated tube injection as above. the tube is in good position and functions normally. Moises Ramírez MD Abdomen X-Ray 08/31/16 0000 Signed Impressions: Service Date/Time: Wednesday, August 31, 2016 16:36 - CONCLUSION: 1. No acute findings. Mild constipation. Durga Dotson MD Head Magnetic Resonance Angiography 03/05/16 0000 Signed Impressions: Service Date/Time: Saturday, March 05, 2016 09:26 - CONCLUSION: Persistent high-grade subtotal occlusive stenotic lesions in the distal right vertebral artery and proximal basilar artery with significant improvement in flow and recanalization following initial presentation of thrombosis. Stable interstitial circulation without significant stenosis. Ernesto Kulkarni MD Neck Magnetic Resonance Angiography 12/22/15 1445 Signed Impressions: Service Date/Time: Tuesday, December 22, 2015 09:22 - CONCLUSION: Variant origin of the left vertebral artery from the aortic arch. No evidence of carotid stenosis. Glen Zamora MD Head/Brain Mag Res Venography 12/22/15 0000 Signed Impressions: Service Date/Time: Tuesday, December 22, 2015 09:22 - CONCLUSION: Normal MRV. Jonel Jones Jr., MD Objective Remarks GENERAL: Resting comfortably. EYES: No scleral icterus. No injection or drainage. CARDIOVASCULAR: Regular rate and rhythm without murmurs RESPIRATORY: No accessory muscle use. Trach in place. upper airway noise noted. GASTROINTESTINAL: Abdomen soft, non-tender, nondistended. PEG tube in place. EXTREMITIES: TR edema of hands and legs. NEUROLOGICAL: was asleep and opened eyes, no movement noted today Procedures 07/22/2016 Wide excision of sacral skin wound, biopsy of the cavity lining and debridement. PEG removal and Gj tube placement 07/29/16 VAC changes- M-W-F 10/23/16, 11/18, 12/31- GJ tube replacement 01/02/16 PEG placement 01/02/16 tracheostomy 02/25/17 PEG replacement 03/03/17 Cystoscopy and palliative transurethral resection of bladder tumor greater than 5cm originating from the right bladder wall Date of Insertion: Mar 03, 2017 A/P Problem List: (1) CVA (cerebral vascular accident) ICD Code: I63.9 - Cerebral infarction, unspecified Status: Acute (2) A-fib ICD Code: I48.91 - Unspecified atrial fibrillation Status: Chronic (3) DM (diabetes mellitus) ICD Code: E11.9 - Type 2 diabetes mellitus without complications Status: Chronic (4) Hyponatremia ICD Code: E87.1 - Hypo-osmolality and hyponatremia Status: Acute Assessment and Plan update in medical management 04/02/17 Anemia. Hemoglobin <7.0, transfuse 2 units PRBC now. monitor H&H Fever 03/31. None today. No signs of acute infection. Infectious disease following. Continue Zosyn. Appreciate assistance. //Elevated AST, alkaline phosphatase. Labs ordered to check for occult source of fever. liver ultrasound for rule out of fever. Not yet available. //Acute kidney injury. Creatinine 1.42 from 1.19. on very gentle IV fluids. Recheck tomorrow. 1 year-old male with past medical history of paroxysmal A. fib, hypertension, stage III non-Hodgkin's lymphoma status post chemotherapy who came into the hospital with altered mental status. //PEG tube site cellulitis/Low grade fever -ID was consulted - wound culture positive for Kleb pneumo sensitive to Levaquin. - BCX negative - SP treatment with IV Levaquin x 5 days however there is still purulence observed. Continue wound care and will reculture site if fever. - A per Wound care recommendations. Cleanse around PEG tube site with normal saline and apply drain sponge around tube secure tube and drain sponge with medifix tape change as needed. Please use skin prep before applying adhesives to skin. Continue. 03/23 purulent discharge observed from PEG site - re ordered wound culture and will reconsult ID. 03/24 ID reconsulted recommendations pending. Patient with low grade fever overnight with a tmax of 99.7. Will start on Iv broad spectrum antibiotics ( Vancomycin and Zosyn IV), check blood cultures, CXR and urinalysis 03/25 UA (+) with urine culture growing gram negative rods. Continue IV zosyn and fu ID recommendations. blood cultures negative. Consult infectious GI to asses PEG tube. 03/26 GI recommendations pending regarding PEG tube. Continue IV zosyn for now. 03/27 No fevers. Continue antibiotics as per ID. Continue Zosyn, repeat cultures if febrile. Urine culture is growing pseudomonas. wound culture growing MDR pseudomonas. GI reconsulted however patient no seen yet. 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 - CT of the abdomen showed bladder mass right posteriorly with apparent extravesical extension and clot formation. - Urology spoke with family member, daughter, states that he's not recommending biopsy of the bladder mass. However daughter insisted on biopsy. Patient s/p cystoscopy and palliative transurethral resection of bladder tumor greater than 5 cm originating from right bladder wall performed by Dr. Sewell . 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 - Oncology following - appreciate their assistance. Family requesting aggressive therapy. CT chest negative for malignancy. MRI completed. Patient is not a candidate for chemotherapy. Family has decided on palliative XRT treatment and would like it to start MIGEL. Consult placed for radiation oncology. - Palliative care following, appreciate their assistance. - Continue to flush lopez catheter PRN. Monitor for recurrence of hematuria - Patient is currently undergoing radiation therapy. Monitor for side effects. - 03/28 Mild hematuria today, continue to monitor urine output or for side effects. Hold Coumadin for now until hematuria resolves. Resume Coumadin once hematuria resolves. -03/29. Continues on Coumadin. No observed hematuria. 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 Intermittently tracks with eyes. - Continue Keppra 500mg BID for seizure prophylaxis. Keppra level 17.8. - PT/OT signed off as patient is unable to participate. - On Paxil 20 by mouth daily for depression. - On acetaminophen with codeine for pain scale of 2-10. - cont Morphine 1 mg every 24 hours when necessary for dressing change //Chronic respiratory failure secondary to CVA - Status post tracheostomy. Continue pulmonary toilet and bronchodilators as needed. Continue trach care, suctioning. Increased secretions improved with scheduled Levsin. cont Levsin q8h. - Trach changed to size #6 XLT on 01/09 - Duo nebs every 4 hours while awake - Pulmonary currently following, appreciate assistance. //Atrial fibrillation. //Hypertension controlled. // Dyslipidemia - Continue rate control with Cardizem and metoprolol. - [id number] score 4 - Echocardiogram in November 2015 shows preserved ejection fraction. - 03/24 Coumadin discontinued secondary to bleeding from sacral wound. No active bleeding noted. Coumadin resumed Pharmacy to dose. INR supratherapeutic at 3.3. Hold coumadin and aspirin due to drop in hemoglobin. - No active bleeding noted. Therapeutic INR at 3.0. Pharmacy dosing. - 03/28 mild hematuria, INR down to 2.3. Today heart rate increased into the 120's. I will increase Cardizem dose from 30 mg to 60 mg QID. Check EKG==> no appreciable change on 03/28. // History of non-Hodgkin's lymphoma - Status post brain biopsy on December 13 by neurosurgery. Pathology consistent with acute infarct without evidence of lymphoma. // Diabetes mellitus Type 2 - Hemoglobin A1c is 5.5. - Fingersticks have been stable and were DC'd 02/01/17 - 03/24 Blood sugar uncontrolled - Will resume Accu-Cheks and SSI with insulin NovoLog. - 03/27 Blood sugar severely elevated in the 200's. Will start SQ Levir 5 units SQ BID. continue SSI with insulin Novolog. - 03/28 sugars still very elevated above the 200s. Will increase Levemir subcutaneously to 10 units subcutaneously twice a day. Continue SSI with insulin NovoLog. Continue to monitor Accu-Cheks. // Decubitus ulcer stage IV - Status post wide excision of sacral skin and biopsy of the cavity lining with debridement on 07/22/16. - Continue wound care, twice-daily dressing changes. Wound care recommendations last updated 12/12/16. Continue pressure relief measures including turning and positioning. - Patient's family has declined a diverting colostomy. Previous Wound culture growing Klebsiella and Enterococcus Faecalis. Previously on Augmentin. - Wound care last saw patient on 02/25/17, no new recommendations continue packing with Betadine moistened rolled Janis and covered with ABD pad and paper tape to secure. - Continue to monitor. Continue pressure-relief. - Morphine 1 mg every 24 hours when necessary for dressing change - confirmed with nursing staff continued dressing changes BID //Protein calorie malnutrition // Gastroesophageal reflux disease // Gastric ulcer, reflux esophagitis // Diarrhea, negative for C. difficile. - EGD on 07/30/16 showed gastric ulcers. Continue on Prevacid 30 mg Q12. - G/J tube clogged, IR consulted to evaluate. Replaced on 02/25/17 - TF held 03/16 due to emesis. No recurrence. TF resumed yesterday - patient tolerating. Websphere Developer consulted to assist with rate/needs. Per their recommendations, Rec increasing TF'ing 10ml/hr Q 6hr, as tolerated, to goal rate 55ml/hr. Rec to discontinue the Ashish r/t pt has received Ashish for Rec dosing of 4-weeks to promote new tissue growth. - Continue bowel regimen with hold parameters, Lactinex and Imodium. (+)BM overnight x 1. - 03/23 patient with increased loose stools as per rn repeat C diff PCR - negative // Klebsiella/Pseudomonas/staph aureus HCAP // PSAE UTI - S/p Cefepime. Monitor for signs of infections. - strep pneumonia and Legionella urinary Ag is negative - C-diff PCR negative on 01/13 - 01/09 BC : Staph Epi, Urine cx: Pseudomonas, Sputum cx: Pseudomonas, kleb, Staph. - Patient was pancultured on 01/19 (Blood, sputum, urine) NGTD in urine and blood. Sputum + for pseudomonas. Likely colonization. // Hyponatremia - 04/01 Mild, sodium stable at 134 - continue to monitor BMP. // Anemia - sp transfusion of 1 unit of PRBC on 03/24. Hemoglobin responded appropriately from 6.8 and 8.1. - Stool Hemoccult negative. - Continue to monitor cbc. - 04/01 Hemoglobin decr at 7.0. Transfuse for hemoglobin < 7. // Oliguria - Likely due to dehydration. - Improving with IV fluids and increased free water via PEG. - 03/27 Continue free water. Fu BMP. DVT prophylaxis: Continue SCDs, Coumadin on hold. Discharge Planning pt to complete radiation therapy in house prior to be discharged to [facility] Problem Qualifiers (1) CVA (cerebral vascular accident): (2) DM (diabetes mellitus): Rekha Foster MD Apr 02, 2017 14:50
[2017-04-02] MEDS: WARFARIN SOD 3 MG TAB PO SCH (18:22)
[2017-04-02] MEDS: PARoxetine HCL SUSP 20 MG/10 ML UDC PEG SCH (18:22)
--- NOTE | 2017-04-02 19:55 | RADRPT ---
EXAM DATE/TIME: 04/02/2017 18:36 [facility] COMPARISON: CT THORAX W CONTRAST, March 10, 2017, 21:00. CT ABDOMEN & PELVIS W CONTRAST, February 27, 2017, 2:24. INDICATIONS : Abnormal labs. MEDICAL HISTORY : Hypercholesterolemia. CVA. Headache. Hypertension. A.FIB. Anticogulant therapy. Dyspnea. Diabetes . Anxiety. Non- hodgkins lymphoma cancer. Chemotherapy.MRSA. Bladder cancer. Respiratoy failure. Dec ubitus ulcer. Anemia. SURGICAL HISTORY : Left elbow surgery. Peg tube replacement and removal. Tracheostomoy. Cystoscopy. Brain biospy. ENCOUNTER: Initial ACUITY: 1 day PAIN SCORE: Nonresponsive. LOCATION: Bilateral upper quadrant MEASUREMENTS: LIVER: 20.8 cm length COMMON DUCT: 5 mm RIGHT KIDNEY: 14.0 x 4.9 x 5.2 cm SPLEEN: 17.7 cm length FINDINGS: LIVER: Approximately 16mm hypoechoic lesion is seen in the right hepatic lobe. No other focal hepatic lesion . No ductal dilatation. Normal flow velocity and direction in the main portal vein. COMMON DUCT: No intraluminal mass or stone visualized. GALLBLADDER: Sludge and multiple small stones in the gallbladder. No wall thickening or pericholecystic fluid. Neg ative sonographic King's sign. PANCREAS: The visualized portions are within normal limits. RIGHT KIDNEY: No hydronephrosis, stone or mass. SPLEEN: No focal lesion. CONCLUSION: 1. Small hypoechoic lesion in the right hepatic lobe that is not convincing for a cyst or other benig n structure. A small metastatic lesion would be in the differential. I don't clearly see it on the pr ior CTs. Abdomen MRI with and without contrast may be helpful. 2. Hepatomegaly. 3. Sludge and small stones in the gallbladder. No evidence of cholecystitis or biliary obstruction. Glen Moore MD on April 02, 2017 at 19:51 Board Certified Radiologist. This report was verified electronically.
[2017-04-02 20:00] VITALS: BP 124/71; PULSE 115; RESP 19; TEMP 98.2; O2SAT 97
[2017-04-02 23:32] VITALS: BP 124/70; PULSE 110; RESP 18; TEMP 99.2; O2SAT 96
[2017-04-03] VITALS (8 sets, daily range): BP systolic 125–134; BP diastolic 75–80; PULSE 100–124; RESP 17–20; TEMP 96–101.9; O2SAT 96–99
[2017-04-03] MEDS: INSULIN DETEMIR 100 UNITS/ML VIAL SQ SCH ×2 (00:05→08:22)
[2017-04-03] MEDS: INSULIN ASPART SUPPLEMENTAL SCALE SQ SCH ×4 (00:05→17:00)
[2017-04-03] MEDS: SODIUM CHLOR 0.9% 1000 ML INJ 1,000 ML IV SCH ×2 (00:45→14:17)
[2017-04-03] MEDS: ACETAMINOPHEN 325 MG TAB PO PRN (05:26)
[2017-04-03] MEDS: HYOSCYAMINE 0.125 MG TAB G-TUBE SCH ×3 (05:27→22:01)
[2017-04-03] MEDS: PIPERACIL-TAZO 4.5 GM PREMIX 100 ML IV SCH ×3 (05:31→22:02)
[2017-04-03] MEDS: ACETIC ACID 0.25% SOLN 1000 ML IRR BTL IRRIGATION SCH ×3 (05:31→22:04)
[2017-04-03] MEDS: ASCORBIC ACID 500 MG TAB PO SCH (08:10)
[2017-04-03] MEDS: ASPIRIN 325 MG TAB TUBE SCH (08:10)
[2017-04-03] MEDS: LANSOPRAZOLE SOLUTAB 30 MG TAB NG SCH ×2 (08:11→22:01)
[2017-04-03] MEDS: DILTIAZEM HCL 30 MG TAB PEG SCH ×4 (08:11→22:01)
[2017-04-03] MEDS: levETIRAcetam 500 MG/5 ML UDC TUBE SCH ×2 (08:11→22:02)
[2017-04-03] MEDS: FERROUS SULFATE 300 MG /5ML UDC PO SCH (08:11)
[2017-04-03] MEDS: ARTIFICIAL TEARS OPTH SOLN 15 ML BTL EACH EYE SCH ×2 (08:19→22:02)
[2017-04-03] MEDS: BACITRACIN TOP OINT 15 GM TUBE TOP SCH ×2 (08:19→22:02)
[2017-04-03] MEDS: NYSTATIN 100,000 U/GM PWD 15 GM BTL TOPICAL SCH ×2 (08:20→22:04)
[2017-04-03] MEDS: SODIUM CHLORIDE 0.65% NASAL SPRAY 45 ML BTL NASAL SCH ×2 (08:22→22:04)
[2017-04-03] MEDS: BACITRACIN OINT 0.9 GM PKT TOPICAL SCH (08:22)
[2017-04-03] MEDS: ACETAMINOPHEN 650 MG/20.3 ML UDC TUBE PRN (15:11)
[2017-04-03] MEDS: WARFARIN SOD 3 MG TAB PO SCH (15:12)
--- NOTE | 2017-04-03 16:01 | HHI.PR ---
Subjective Remarks ass OPENS EYES NO DISTRESS o2 sat 95%ON TTUBE small cell CA of urinary bladder US of the liver noted Objective Vital Signs Date Time Temp Pulse Resp B/P (MAP) Pulse Ox O2 Delivery O2 Flow Rate FiO2 04/03/17 12:00 101.9 117 17 130/79 (96) 96 04/03/17 08:40 98 T-piece 28 04/03/17 08:40 98 T-piece 28 04/03/17 08:00 96.6 118 17 134/75 (94) 98 04/03/17 07:44 96.6 118 17 134/75 98 04/03/17 05:25 100.4 124 20 134/77 99 04/03/17 05:02 100.4 121 20 125/80 99 04/02/17 23:32 99.2 110 18 124/70 (88) 96 04/02/17 21:00 100 Trach Collar 5.00 Humidified 04/02/17 20:00 98.2 115 19 124/71 (88) 97 I/O 04/02/17 04/02/17 04/02/17 04/03/17 04/03/17 04/03/17 07:00 15:00 23:00 07:00 15:00 23:00 Intake Total 0 ml 0 ml 402 ml Output Total 600 ml 1050 ml 900 ml Balance -600 ml -1050 ml -900 ml 402 ml Intake Oral 0 ml 0 ml Packed Cells 400 ml Blood Product IV Normal Saline Flush 2 ml Output Urine Total 600 ml 1050 ml 900 ml # Bowel Movements 1 1 2 Result Diagram: 04/02/17 0711 04/02/17 0711 Procedures 07/22/2016 Wide excision of sacral skin wound, biopsy of the cavity lining and debridement. PEG removal and Gj tube placement 07/29/16 VAC changes- M-W-F 10/23/16, 11/18, 12/31- GJ tube replacement 01/02/16 PEG placement 01/02/16 tracheostomy 02/25/17 PEG replacement 03/03/17 Cystoscopy and palliative transurethral resection of bladder tumor greater than 5cm originating from the right bladder wall Objective Remarks GENERAL: SKIN: Warm and dry. HEAD: Atraumatic. Normocephalic. EYES: Pupils equal and round. No scleral icterus. No injection or drainage. ENT: No nasal bleeding or discharge. Mucous membranes pink and moist. NECK: Trachea midline. No JVD. CARDIOVASCULAR: Regular rate and rhythm. RESPIRATORY: No accessory muscle use. Clear to auscultation. Breath sounds equal bilaterally. GASTROINTESTINAL: Abdomen soft, non-tender, nondistended. Hepatic and splenic margins not palpable. MUSCULOSKELETAL: Extremities without clubbing, cyanosis, or edema. No obvious deformities. NEUROLOGICAL: Awake and alert. No obvious cranial nerve deficits. Motor grossly within normal limits. Five out of 5 muscle strength in the arms and legs. Normal speech. PSYCHIATRIC: Appropriate mood and affect; insight and judgment normal. Laboratory Tests Test 01/05/17 01/06/17 08:35 08:41 Red Blood Count 4.43 MIL/MM3 (4.50-5.90) Hemoglobin 9.9 GM/DL (13.0-17.0) Hematocrit 32.0 % (39.0-51.0) Mean Corpuscular Volume 72.1 FL (80.0-100.0) Mean Corpuscular Hemoglobin 22.3 PG (27.0-34.0) Mean Corpuscular Hemoglobin 30.9 % Concent (32.0-36.0) Red Cell Distribution Width 19.9 % (11.6-17.2) Sodium Level 134 MEQ/L 133 MEQ/L (136-145) (136-145) Random Glucose 136 MG/DL 132 MG/DL (74-106) (74-106) Creatinine 0.59 MG/DL (0.60-1.30) GENERAL: SKIN: Warm and dry. HEAD: Atraumatic. Normocephalic. EYES: Pupils equal and round. No scleral icterus. No injection or drainage. ENT: No nasal bleeding or discharge. Mucous membranes pink and moist. NECK: Trachea midline. No JVD. TRACH. [place] CARDIOVASCULAR: Regular rate and rhythm. RESPIRATORY: No accessory muscle use. Clear to auscultation. Breath sounds equal bilaterally. GASTROINTESTINAL: Abdomen soft, non-tender, nondistended. Hepatic and splenic margins not palpable. MUSCULOSKELETAL: Extremities without clubbing, cyanosis, or edema. No obvious deformities. NEUROLOGICAL: Awake and alert. No obvious cranial nerve deficits. Motor grossly within normal limits. Five out of 5 muscle strength in the arms and legs. Normal speech. PSYCHIATRIC: Appropriate mood and affect; insight and judgment normal. 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 TOILET Brandon Taylor MD Apr 03, 2017 16:01
--- NOTE | 2017-04-03 16:16 | HHI.PR ---
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 Patient seen and examined. Patients mother is at the bedside. Patient opens eyes. He is nonverbal. s/p transfusion 2 units PRBCs this morning. Patient with temperature 101.9. Objective Vitals Vital Signs Date Time Temp Pulse Resp B/P (MAP) Pulse Ox O2 Delivery O2 Flow Rate FiO2 04/03/17 12:00 101.9 117 17 130/79 (96) 96 04/03/17 08:40 98 T-piece 28 04/03/17 08:40 98 T-piece 28 04/03/17 08:00 96.6 118 17 134/75 (94) 98 04/03/17 07:44 96.6 118 17 134/75 98 04/03/17 05:25 100.4 124 20 134/77 99 04/03/17 05:02 100.4 121 20 125/80 99 04/02/17 23:32 99.2 110 18 124/70 (88) 96 04/02/17 21:00 100 Trach Collar 5.00 Humidified 04/02/17 20:00 98.2 115 19 124/71 (88) 97 I/O 04/02/17 04/02/17 04/02/17 04/03/17 04/03/17 04/03/17 06:59 14:59 22:59 06:59 14:59 22:59 Intake Total 0 ml 0 ml 402 ml Output Total 600 ml 1050 ml 900 ml Balance -600 ml -1050 ml -900 ml 402 ml Intake Oral 0 ml 0 ml Packed Cells 400 ml Blood Product IV Normal Saline Flush 2 ml Output Urine Total 600 ml 1050 ml 900 ml # Bowel Movements 1 1 2 Result Diagram: 04/02/17 0711 04/02/17 0711 Imaging Last Impressions Liver Ultrasound 04/02/17 0000 Signed Impressions: Service Date/Time: Sunday, April 02, 2017 18:36 - CONCLUSION: 1. Small hypoechoic lesion in the right hepatic lobe that is not convincing for a cyst or other benign structure. A small metastatic lesion would be in the differential. I don't clearly see it on the prior CTs. Abdomen MRI with and without contrast may be helpful. 2. Hepatomegaly. 3. Sludge and small stones in the gallbladder. No evidence of cholecystitis or biliary obstruction. Glen Moore MD Chest X-Ray 03/31/17 0000 Signed Impressions: Service Date/Time: Saturday, April 01, 2017 00:16 - CONCLUSION: 1. Subsegmental basilar air space disease. No significant change from March 27. No effusion or pneumothorax. Remote left rib fractures. Durga Dotson MD Brain MRI 03/14/17 0000 Signed Impressions: Service Date/Time: Tuesday, March 14, 2017 12:41 - CONCLUSION: The signal abnormality and enhancement within the bilateral occipital lobes and colin have decreased since the prior examinations. No new abnormality is identified. There is no new enhancing area or signs of a recent ischemia. Glen Gordon MD Chest CT 03/10/17 0000 Signed Impressions: Service Date/Time: Friday, March 10, 2017 21:00 - CONCLUSION: 1. Periaortic soft tissue along the proximal descending thoracic aorta not previously seen. This represents either lymphomatous involvement or adjacent consolidated airspace disease. 2. Mild bilateral airspace disease 3. No evidence of significant lymphadenopathy involving the mediastinum, hilar regions, axillas or supraclavicular lore chain. 4. Tracheostomy tube in place. Ernesto Kulkarni MD Abdomen/Pelvis CT 02/27/17 0000 Signed Impressions: Service Date/Time: February 02:24 - CONCLUSION: 1. Abdominal aortic aneurysm. 2. Bladder mass is noted on the right posteriorly with apparent extravesical extension and clot formation. 3. Left renal cyst. 4. Left lower lobe atelectasis. 5. Large sacral decubitus ulcer with bony destruction and sclerosis of the sacrum mid to left lateral portion in the region of S3 and inferiorly which would suggest chronic osteomyelitis in the appropriate clinical setting. Rajan Granados MD Soft Tissue Ultrasound 02/26/17 0000 Signed Impressions: Service Date/Time: Sunday, February 26, 2017 12:52 - CONCLUSION: 1. Just inferior to the G-tube in the left abdomen, there is a superficial 3.8 x 2.9 0.9 cm complex fluid collection in the subcutaneous tissues. 2. Findings are nonspecific. This could represent a small seroma or abscess. Would consider CT scan of the abdomen without contrast for further evaluation to determine if there is intraperitoneal extension. Bobby Gray MD Gastrostomy Tube Placement 02/25/17 0000 Signed Impressions: Service Date/Time: Saturday, February 25, 2017 14:19 - CONCLUSION: Uncomplicated exchange of gastroenteric feeding tube for gastrostomy tube as above. Positioning confirmed. The tube can be used immediately. Glen Zamora MD Tube Change 02/14/17 0000 Signed Impressions: Service Date/Time: Tuesday, February 14, 2017 00:00 - CONCLUSION: Uncomplicated gastrojejunostomy tube exchange as above. Scott Griffin MD Head CT 01/09/17 0000 Signed Impressions: Service Date/Time: December 17:43 - CONCLUSION: 1. No acute hemorrhage or mass effect. 2. 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 3. Atrophy. Gerald Mukherjee MD CT Angiography 01/09/17 0000 Signed Impressions: Service Date/Time: December 17:49 - CONCLUSION: 1. No evidence of pulmonary emboli. 2. Patchy consolidation in both posterior lower lobes right greater than left. This could represent pneumonia. 3. 2 small noncalcified pulmonary nodules which are nonspecific finding. Short-term CT followup is recommended beginning in 6 months with a noncontrast outpatient CT. Gerald Mukherjee MD Tube Check 12/04/16 0000 Signed Impressions: Service Date/Time: Sunday, December 04, 2016 17:58 - CONCLUSION: Uncomplicated tube injection as above. the tube is in good position and functions normally. Moises Ramírez MD Abdomen X-Ray 08/31/16 0000 Signed Impressions: Service Date/Time: Wednesday, August 31, 2016 16:36 - CONCLUSION: 1. No acute findings. Mild constipation. Durga Dotson MD Head Magnetic Resonance Angiography 03/05/16 0000 Signed Impressions: Service Date/Time: Saturday, March 05, 2016 09:26 - CONCLUSION: Persistent high-grade subtotal occlusive stenotic lesions in the distal right vertebral artery and proximal basilar artery with significant improvement in flow and recanalization following initial presentation of thrombosis. Stable interstitial circulation without significant stenosis. Ernesto Kulkarni MD Neck Magnetic Resonance Angiography 12/22/15 1445 Signed Impressions: Service Date/Time: Tuesday, December 22, 2015 09:22 - CONCLUSION: Variant origin of the left vertebral artery from the aortic arch. No evidence of carotid stenosis. Glen Zamora MD Head/Brain Mag Res Venography 12/22/15 0000 Signed Impressions: Service Date/Time: Tuesday, December 22, 2015 09:22 - CONCLUSION: Normal MRV. Jonel Jones Jr., MD Objective Remarks GENERAL: WDWN male, in no apparent distress. Nonverbal. Opens his eyes. Does not follow commands. Mother is at the bedside. Appears comfortable. SKIN: Warm and dry. No rash noted. HEENT: Normocephalic. Eyes non-icteric without injection or drainage. Nose without bleeding. NECK: Trachea midline. CARDIOVASCULAR:tachy without murmurs RESPIRATORY: Upper airway noise noted. No accessory muscle use. Trach in place. GASTROINTESTINAL: Abdomen soft, non-tender, nondistended. BS active x [address] quads[address] tube in place, with small amount of surrounding erythema but no purulence or blood noted. : Lopez catheter in place with clear yellow urine in the bag. MUSCULOSKELETAL: Extremities without clubbing, cyanosis, Bilateral feet +1 edema. Upper extremities slightly edematous. NEUROLOGICAL: Awake. Patient not following commands. Not tracking. Nonverbal. Procedures 07/22/2016 Wide excision of sacral skin wound, biopsy of the cavity lining and debridement. PEG removal and Gj tube placement 07/29/16 VAC changes- M-W-F 10/23/16, 11/18, 12/31- GJ tube replacement 01/02/16 PEG placement 01/02/16 tracheostomy 02/25/17 PEG replacement 03/03/17 Cystoscopy and palliative transurethral resection of bladder tumor greater than 5cm originating from the right bladder wall Medications and IVs Current Medications Medications (Trade) Dose Ordered Sig/Junior Route Start Time Stop Time Status Last Admin (NS Flush) 2 ml UNSCH PRN IVF 12/21/15 06:00 03/27/17 07:40 (Keppra Liq) 500 mg Q12HR TUBE 12/27/15 21:00 04/03/17 08:11 (Tylenol 650 Mg/ 20 ml Liq) 650 mg Q6H PRN TUBE 12/30/15 15:15 04/03/17 15:11 (Mycostatin Powder) 1 applic Q12HR TOPICAL 01/08/16 21:00 04/03/17 08:20 (Pill Splitter) 1 ea UNSCH PRN OTHER 01/14/16 08:30 (Acetic Acid 0.25% Irr Btl) 10 ml Q8HR IRRIGATION 02/05/16 16:00 04/03/17 05:31 (Paxil Liq) 20 mg DAILY@1900 PEG 03/12/16 19:00 Future hold 04/02/17 18:22 (Zofran Inj) 4 mg Q6HR PRN IV PUSH 04/14/16 19:45 03/16/17 16:00 (Xopenex Neb) 0.63 mg Q4HR NEB PRN NEB 05/05/16 12:00 03/30/17 21:58 (Aspirin) 325 mg DAILY TUBE 05/27/16 11:40 Future hold 04/03/17 08:10 (Baciguent Oint) 1 applic BID TOP 07/20/16 10:00 04/03/17 08:19 ([place]) 1 spray BID NASAL 08/01/16 21:00 04/03/17 08:22 (Tears Naturale Opth Soln) 1 drop BID EACH EYE 09/05/16 21:00 04/03/17 08:19 (Morphine Inj) 1 mg Q24H PRN IV PUSH 09/17/16 14:30 10/22/16 02:00 (Dulcolax Supp) 10 mg DAILY PRN RECTAL 09/26/16 15:30 12/08/16 09:17 (Tylenol - Codeine 120-12 Liq) 5 ml Q4H PRN G-TUBE 12/27/16 15:30 03/31/17 05:50 (Imodium Liq) 2 mg Q6H PRN PEG 12/27/16 15:30 04/01/17 08:29 (Milk Of Magnesia Liq) 30 ml DAILY PRN PEG 12/27/16 15:30 02/11/17 08:46 (Milk Of Magnesia Liq) 30 ml DAILY PEG 12/28/16 09:00 Future Hold 01/19/17 08:44 (Senna Liq) 8.8 mg DAILY@1600 PEG 12/27/16 16:00 Future Hold 03/24/17 17:13 (Lactulose Liq) 30 ml DAILY PRN PEG 12/27/16 15:30 (Prevacid Odt) 30 mg BID NG 01/26/17 21:00 04/03/17 08:11 (Ferrous Sulfate Liq) 300 mg DAILY PO 02/14/17 09:00 04/03/17 08:11 (Vitamin C) 1,000 mg DAILY PO 02/14/17 09:00 04/03/17 08:10 (Bacitracin Oint Packet) 0.9 gm DAILY TOPICAL 02/25/17 09:00 04/03/17 08:22 (Levsin) 0.25 mg Q8HR G-TUBE 03/18/17 22:00 04/03/17 13:49 Pharmacy Profile Note 0 ml @ 0 mls/hr UNSCH OTHER 03/19/17 15:30 Piperacillin Sod/ Tazobactam Sod 100 ml @ 200 mls/hr Q8H IV 03/24/17 14:00 04/03/17 13:49 (NovoLOG SUPPLEMENTAL SCALE) 1 ACHS SLIDING SCALE SQ 03/26/17 21:00 04/03/17 12:00 (D50w (Vial) Inj) 50 ml UNSCH PRN IV PUSH 03/26/17 18:15 (Glucagon Inj) 1 mg UNSCH PRN OTHER 03/26/17 18:15 (Levemir Inj) 10 units Q12HR SQ 03/28/17 21:00 04/03/17 08:22 (Cardizem) 60 mg QID PEG 03/28/17 18:00 04/03/17 13:00 (Coumadin) 3 mg DAILY@1600 PO 04/01/17 16:00 04/03/17 15:12 Sodium Chloride 1,000 ml @ 65 mls/hr [id number] IV 04/01/17 12:30 04/03/17 14:17 (Tylenol) 650 mg Q4H PRN PO 04/02/17 10:45 04/03/17 05:26 (Benadryl) 25 mg Q4H PRN PO 04/02/17 10:45 04/03/17 05:26 Date of Insertion: Mar 03, 2017 A/P Problem List: (1) CVA (cerebral vascular accident) ICD Code: I63.9 - Cerebral infarction, unspecified Status: Acute (2) A-fib ICD Code: I48.91 - Unspecified atrial fibrillation Status: Chronic (3) DM (diabetes mellitus) ICD Code: E11.9 - Type 2 diabetes mellitus without complications Status: Chronic (4) Hyponatremia ICD Code: E87.1 - Hypo-osmolality and hyponatremia Status: Acute Assessment and Plan 60 year-old male with past medical history of paroxysmal A. fib, hypertension, stage III non-Hodgkin's lymphoma status post chemotherapy who came into the hospital with altered mental status. PEG tube site cellulitis - ID following, appreciate their assistance - wound culture positive for Kleb pneumo sensitive to Levaquin - SP treatment with IV Levaquin x 5 days however there is still purulence observed. Continue wound care and will reculture site if fever. - A per Wound care recommendations. Cleanse around PEG tube site with normal saline and apply drain sponge around tube secure tube and drain sponge with medifix tape change as needed. Please use skin prep before applying adhesives to skin. Continue. 03/23 purulent discharge observed from PEG site - re ordered wound culture and will reconsult ID. 03/24 ID reconsulted recommendations pending. Patient with low grade fever overnight with a tmax of 99.7. Will start on Iv broad spectrum antibiotics ( Vancomycin and Zosyn IV), check blood cultures, CXR and urinalysis 03/25 UA (+) with urine culture growing gram negative rods. Continue IV zosyn and fu ID recommendations. blood cultures negative. Consult infectious GI to asses PEG tube. 03/26 GI recommendations pending regarding PEG tube. Continue IV zosyn for now. 03/27 No fevers. Continue antibiotics as per ID. Continue Zosyn, repeat cultures if febrile. 03/24 Urine culture is growing pseudomonas. 04/01 urine cx with no growth x 48hrs. 03/23 wound culture growing MDR pseudomonas. GI reconsulted however patient no seen yet. 03/25 BCX with no growth x 5 days. Fever - temp 101.9 - white count 4.5 - Patient currently on Zosyn - ID to see patient - Blood cultures, CXR and UA ordered - Tylenol for symptomatic treatment CAREN - creatinine improved some - avoid nephrotoxic agents - gentle IVF - monitor BMP Bladder cancer - s/p bladder bx positive for small cell carcinoma. - CT of the abdomen showed bladder mass right posteriorly with apparent extravesical extension and clot formation. - Urology spoke with family member, daughter, states that he's not recommending biopsy of the bladder mass. However daughter insisted on biopsy. Patient s/p cystoscopy and palliative transurethral resection of bladder tumor greater than 5 cm originating from right bladder wall performed by Dr. Sewell . 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 - Oncology following - appreciate their assistance. Family requesting aggressive therapy. CT chest negative for malignancy. MRI completed. Patient is not a candidate for chemotherapy. Family has decided on palliative XRT treatment and would like it to start MIGEL. Consult placed for radiation oncology. - Palliative care following, appreciate their assistance. - Continue to flush lopez catheter PRN. Monitor for recurrence of hematuria - Patient is currently undergoing radiation therapy. Monitor for side effects. - 03/28 Mild hematuria today, continue to monitor urine output or for side effects. Hold Coumadin for now until hematuria resolves. Resume Coumadin once hematuria resolves. - 03/29 Continues on Coumadin. No observed hematuria. - 04/02 Liver US shows small hypoechoic lesion in the right hepatic lobe that is not convincing for a cyst or other benign structure. A small metastatic lesion would be in the differential. Hepatomegaly. Sludge and small stones in the gallbladder. No evidence of cholecystitis or biliary obstruction. 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 Intermittently tracks with eyes. - Continue Keppra 500mg BID for seizure prophylaxis. Keppra level 17.8. - PT/OT signed off as patient is unable to participate. - On Paxil 20 by mouth daily for depression. - On acetaminophen with codeine for pain scale of 2-10. - Morphine 1 mg every 24 hours when necessary for dressing change Chronic respiratory failure secondary to CVA - Status post tracheostomy. Continue pulmonary toilet and bronchodilators as needed. Continue trach care, suctioning. Increased secretions improved with scheduled Levsin. Decreased dosing of scheduled Levsin to q8h. - Pulmonary currently following, appreciate assistance. - Duo nebs every 4 hours while awake Atrial fibrillation, controlled Hypertension Dyslipidemia - Continue rate control with Cardizem and metoprolol. - [id number] score 4 - Echocardiogram in November 2015 shows preserved ejection fraction. - continue on Coumadin. INR 1.7 yesterday. Pharmacy to dose. Continue to monitor INR. - Continue aspirin - 03/28 mild hematuria, INR down to 2.3. Today heart rate increased into the 120's. I will increase Cardizem dose from 30 mg to 60 mg QID. Check EKG==> no appreciable change on 03/28. History of non-Hodgkin's lymphoma - Status post brain biopsy on December 13 by neurosurgery. Pathology consistent with acute infarct without evidence of lymphoma. Diabetes mellitus Type 2 - Hemoglobin A1c is 5.5. - Fingersticks have been stable and were DC'd 02/01/17 - 03/24 Blood sugar uncontrolled - Will resume Accu-Cheks and SSI with insulin NovoLog. - 03/27 Blood sugar severely elevated in the 200's. Will start SQ Levir 5 units SQ BID. continue SSI with insulin Novolog. - 03/28 sugars still very elevated above the 200s. Will increase Levemir subcutaneously to 10 units subcutaneously twice a day. Continue SSI with insulin NovoLog. Continue to monitor Accu-Cheks. Decubitus ulcer stage IV - Status post wide excision of sacral skin and biopsy of the cavity lining with debridement on 07/22/16. - Continue wound care, twice-daily dressing changes. Wound care recommendations last updated 12/12/16. Continue pressure relief measures including turning and positioning. - Patient's family has declined a diverting colostomy. Previous Wound culture growing Klebsiella and Enterococcus Faecalis. Previously on Augmentin. - Wound care last saw patient on 02/25/17, no new recommendations continue packing with Betadine moistened rolled Janis and covered with ABD pad and paper tape to secure. - Continue to monitor. Continue pressure-relief. - Morphine 1 mg every 24 hours when necessary for dressing change - confirmed with nursing staff continued dressing changes BID Protein calorie malnutrition Gastroesophageal reflux disease Gastric ulcer, reflux esophagitis Diarrhea, negative for C. difficile. Improved - EGD on 07/30/16 showed gastric ulcers. Continue on Prevacid 30 mg Q12. - G/J tube clogged, IR consulted to evaluate. Replaced on 02/25/17 - TF held 03/16 due to emesis. No recurrence. TF resumed yesterday - patient tolerating. Forest Officer consulted to assist with rate/needs. Per their recommendations, Rec increasing TF'ing 10ml/hr Q 6hr, as tolerated, to goal rate 55ml/hr. Rec to discontinue the Ashish r/t pt has received Ashish for Rec dosing of 4-weeks to promote new tissue growth. - Continue bowel regimen with hold parameters, Lactinex and Imodium. (+)BM overnight x 1. Klebsiella/Pseudomonas/staph aureus HCAP PSAE UTI - S/p Cefepime. Monitor for signs of infections. - strep pneumonia and Legionella urinary Ag is negative - C-diff PCR negative on 01/13 - 01/09 BC : Staph Epi, Urine cx: Pseudomonas, Sputum cx: Pseudomonas, kleb, Staph. - Patient was pancultured on 01/19 (Blood, sputum, urine) NGTD in urine and blood. Sputum + for pseudomonas. Likely colonization. Hyponatremia - resolved Anemia - sp transfusion of 1 unit of PRBC on 03/24. Hemoglobin responded appropriately from 6.8 and 8.1. - Stool Hemoccult negative. - Continue to monitor cbc. - 04/01 Hemoglobin decr at 7.0. Transfuse for hemoglobin < 7. - 04/02 Hemoglobin 6.9, transfused 2units PRBCs. Follow up H/H pending. DVT prophylaxis: SCDs. Heparin 5,000 units sq Q8hr Discussed with mother and Dr. Foster Discharge Planning pt to complete radiation therapy in house prior [facility] Attending Statement The exam, history, and the medical decision-making described in the above note were completed with the assistance of the mid-level provider. I reviewed and agree with the findings presented. I attest that I had a [id number] encounter with the patient on the same day, and personally performed and documented my assessment and findings in the medical record. Pt non vebal laying in bed, upper airway nose due to trach, HR Tachy. no bleeding from J- tube noted. Discussed w RN after seeing patient. Apparently there was some bleeding around the J tube site and also packing from sacral wound had blood per RN however areas were not actively bleeding. This may be source of anemia. Caution w stopping coumadin as pt has hx of atrial fib and needs to be anticoagulated. In addition, pt is spiking new fevers. Repeat blood cx, chest x-ray, u/a. I have notified ID of new fevers. will f/u. u/s of the liver shows small hypoechoic lesion right lobe concerning for metastatic lesion. Discussed w Ex and I have updated her of pt's condition. Will touch base w palliative care team in AM. Problem Qualifiers (1) CVA (cerebral vascular accident): (2) DM (diabetes mellitus): Jaz Peraza Apr 03, 2017 16:16 Rekha Foster MD Apr 03, 2017 18:28
[2017-04-03 16:26] LABS: BLOOD, URINE MOD (NEG); GLUCOSE,URINE NEG (NEG); KETONE, URINE NEG (NEG); NITRITE,URINE NEG (NEG); PH, URINE 7.5 (5.0-8.5); SQUAMOUS EPITHELIAL CELL URINE <1 /hpf (0-5); URINE COLOR YELLOW (YELLW/STRAW)
--- NOTE | 2017-04-03 16:27 | RADRPT ---
EXAM DATE/TIME: 04/03/2017 15:58 [facility] COMPARISON: CHEST SINGLE AP, April 01, 2017, 0:16. INDICATIONS : Short of breath. MEDICAL HISTORY : Hypercholesterolemia. Hypertension. Cerebrovascular accident. Atrial fibrillation. Diabetes. Depressi on. Anxiety. Carcinoma, lymphoma. MRSA. SURGICAL HISTORY : None. ENCOUNTER: Subsequent ACUITY: 3 months PAIN SCORE: Non-responsive. LOCATION: Bilateral chest FINDINGS: A single view of the chest demonstrates the lungs to be poorly aerated without evidence of mass, infi ltrate or effusion. Tracheostomy tube in good position. The cardiomediastinal contours are unremarka ble. Osseous structures are intact. CONCLUSION: Small lung volumes remain. Mild interstitial prominence without focal infiltrate. Sheldon Garcia MD on April 03, 2017 at 16:25 Board Certified Radiologist. This report was verified electronically.
[2017-04-03 16:28] LABS: COMMENT (UR) CATH-CULTURE IND; CULTURE IF INDICATED CATH CULTURE IND
[2017-04-03] MEDS: PARoxetine HCL SUSP 20 MG/10 ML UDC PEG SCH (17:22)
[2017-04-04] VITALS (7 sets, daily range): BP systolic 122–138; BP diastolic 70–82; PULSE 107–122; RESP 17–20; TEMP 97.6–101.7; O2SAT 95–98
[2017-04-04] MEDS: SODIUM CHLOR 0.9% 1000 ML INJ 1,000 ML IV SCH ×2 (01:35→18:57)
[2017-04-04 04:20] LABS: MEAN CELL VOLUME 74.5 FL (80.0-100.0); MEAN CORPUSCULAR HEMOGLOBIN 24.8 PG (27.0-34.0); MEAN CORPUSCULAR HGB CONC 33.4 % (32.0-36.0); PLATELET COUNT 82 TH/MM3 (150-450); RED BLOOD COUNT 3.63 MIL/MM3 (4.50-5.90); RED CELL DISTRIBUTION WIDTH 22.3 % (11.6-17.2); WHITE BLOOD COUNT 5.1 TH/MM3 (4.0-11.0)
[2017-04-04 04:23] LABS: REVIEW FLAG FINAL
[2017-04-04 04:32] LABS: INTERNATIONAL NORMALIZED RATIO 2.9 RATIO; PROTHROMBIN TIME - PATIENT 33.5 SEC (9.8-11.6)
[2017-04-04 04:57] LABS: BICARBONATE 24.8 MEQ/L (21.0-32.0); POTASSIUM 3.8 MEQ/L (3.5-5.1)
[2017-04-04] MEDS: PIPERACIL-TAZO 4.5 GM PREMIX 100 ML IV SCH ×3 (04:57→21:39)
[2017-04-04] MEDS: HYOSCYAMINE 0.125 MG TAB G-TUBE SCH ×3 (04:57→21:39)
[2017-04-04] MEDS: ACETIC ACID 0.25% SOLN 1000 ML IRR BTL IRRIGATION SCH ×3 (04:58→21:40)
[2017-04-04] MEDS: ACETAMINOPHEN 650 MG/20.3 ML UDC TUBE PRN ×2 (04:59→21:54)
--- NOTE | 2017-04-04 08:21 | HHI.PR ---
Subjective Remarks congested o2 sat 95%ON TTUBE small cell CA of urinary bladder US of the liver noted Objective Vital Signs Date Time Temp Pulse Resp B/P (MAP) Pulse Ox O2 Delivery O2 Flow Rate FiO2 04/04/17 04:00 101.7 04/04/17 00:00 97.6 107 19 138/79 (98) 97 04/03/17 22:05 T-Piece 5.00 04/03/17 20:00 96.0 100 20 130/79 (96) 96 04/03/17 16:00 101.7 116 17 131/78 (95) 96 04/03/17 12:00 101.9 117 17 130/79 (96) 96 04/03/17 08:40 98 T-piece 28 04/03/17 08:40 98 T-piece 28 I/O 04/03/17 04/03/17 04/03/17 04/04/17 04/04/17 04/04/17 07:00 15:00 23:00 07:00 15:00 23:00 Intake Total 0 ml 402 ml 0 ml 0 ml Output Total 900 ml 1600 ml 1200 ml Balance -900 ml 402 ml -1600 ml -1200 ml Intake Oral 0 ml 0 ml 0 ml Packed Cells 400 ml Blood Product IV Normal Saline Flush 2 ml Output Urine Total 900 ml 1600 ml 1200 ml # Bowel Movements 2 2 2 Result Diagram: 04/04/17 0357 04/04/17 0357 Procedures 07/22/2016 Wide excision of sacral skin wound, biopsy of the cavity lining and debridement. PEG removal and Gj tube placement 07/29/16 VAC changes- M-W-F 10/23/16, 11/18, 12/31- GJ tube replacement 01/02/16 PEG placement 01/02/16 tracheostomy 02/25/17 PEG replacement 03/03/17 Cystoscopy and palliative transurethral resection of bladder tumor greater than 5cm originating from the right bladder wall Objective Remarks GENERAL: SKIN: Warm and dry. HEAD: Atraumatic. Normocephalic. EYES: Pupils equal and round. No scleral icterus. No injection or drainage. ENT: No nasal bleeding or discharge. Mucous membranes pink and moist. NECK: Trachea midline. No JVD. CARDIOVASCULAR: Regular rate and rhythm. RESPIRATORY: No accessory muscle use. Clear to auscultation. Breath sounds equal bilaterally. GASTROINTESTINAL: Abdomen soft, non-tender, nondistended. Hepatic and splenic margins not palpable. MUSCULOSKELETAL: Extremities without clubbing, cyanosis, or edema. No obvious deformities. NEUROLOGICAL: Awake and alert. No obvious cranial nerve deficits. Motor grossly within normal limits. Five out of 5 muscle strength in the arms and legs. Normal speech. PSYCHIATRIC: Appropriate mood and affect; insight and judgment normal. Laboratory Tests Test 01/05/17 01/06/17 08:35 08:41 Red Blood Count 4.43 MIL/MM3 (4.50-5.90) Hemoglobin 9.9 GM/DL (13.0-17.0) Hematocrit 32.0 % (39.0-51.0) Mean Corpuscular Volume 72.1 FL (80.0-100.0) Mean Corpuscular Hemoglobin 22.3 PG (27.0-34.0) Mean Corpuscular Hemoglobin 30.9 % Concent (32.0-36.0) Red Cell Distribution Width 19.9 % (11.6-17.2) Sodium Level 134 MEQ/L 133 MEQ/L (136-145) (136-145) Random Glucose 136 MG/DL 132 MG/DL (74-106) (74-106) Creatinine 0.59 MG/DL (0.60-1.30) GENERAL: SKIN: Warm and dry. HEAD: Atraumatic. Normocephalic. EYES: Pupils equal and round. No scleral icterus. No injection or drainage. ENT: No nasal bleeding or discharge. Mucous membranes pink and moist. NECK: Trachea midline. No JVD. TRACH. [place] CARDIOVASCULAR: Regular rate and rhythm. RESPIRATORY: No accessory muscle use. Clear to auscultation. Breath sounds equal bilaterally. GASTROINTESTINAL: Abdomen soft, non-tender, nondistended. Hepatic and splenic margins not palpable. MUSCULOSKELETAL: Extremities without clubbing, cyanosis, or edema. No obvious deformities. NEUROLOGICAL: Awake and alert. No obvious cranial nerve deficits. Motor grossly within normal limits. Five out of 5 muscle strength in the arms and legs. Normal speech. PSYCHIATRIC: Appropriate mood and affect; insight and judgment normal. 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 TOILET Brandon Taylor MD Apr 04, 2017 08:21
[2017-04-04 08:48] LABS: INTERNATIONAL NORMALIZED RATIO 2.9 RATIO; PROTHROMBIN TIME - PATIENT 33.4 SEC (9.8-11.6)
[2017-04-04] MEDS: SODIUM CHLORIDE 0.65% NASAL SPRAY 45 ML BTL NASAL SCH ×2 (09:00→21:44)
[2017-04-04] MEDS: BACITRACIN OINT 0.9 GM PKT TOPICAL SCH (09:00)
[2017-04-04] MEDS: levETIRAcetam 500 MG/5 ML UDC TUBE SCH ×2 (09:00→21:39)
[2017-04-04] MEDS: FERROUS SULFATE 300 MG /5ML UDC PO SCH (09:03)
[2017-04-04] MEDS: ASPIRIN 325 MG TAB TUBE SCH (09:04)
[2017-04-04] MEDS: LANSOPRAZOLE SOLUTAB 30 MG TAB NG SCH ×2 (09:04→21:39)
[2017-04-04] MEDS: ASCORBIC ACID 500 MG TAB PO SCH (09:04)
[2017-04-04] MEDS: DILTIAZEM HCL 30 MG TAB PEG SCH ×4 (09:04→21:39)
[2017-04-04 09:09] LABS: AUTOMATED NEUTROPHIL # 3.8 TH/MM3 (1.8-7.7); BASOPHIL % 0.7 % (0.0-2.0); EOSINOPHIL # 0.2 TH/MM3 (0-0.4); EOSINOPHIL % 4.5 % (0.0-4.0); HEMATOCRIT 27.1 % (39.0-51.0); LYMPH % 17.7 % (9.0-44.0); MEAN CELL VOLUME 75.1 FL (80.0-100.0); MEAN CORPUSCULAR HEMOGLOBIN 24.8 PG (27.0-34.0); MONO % 6.7 % (0.0-8.0); NEUT % 70.4 % (16.0-70.0); PLATELET COUNT 77 TH/MM3 (150-450); RED BLOOD COUNT 3.61 MIL/MM3 (4.50-5.90); RED CELL DISTRIBUTION WIDTH 22.2 % (11.6-17.2); WHITE BLOOD COUNT 5.4 TH/MM3 (4.0-11.0)
[2017-04-04] MEDS: NYSTATIN 100,000 U/GM PWD 15 GM BTL TOPICAL SCH ×2 (09:11→21:47)
[2017-04-04] MEDS: ARTIFICIAL TEARS OPTH SOLN 15 ML BTL EACH EYE SCH ×2 (09:11→21:44)
[2017-04-04] MEDS: BACITRACIN TOP OINT 15 GM TUBE TOP SCH ×2 (09:12→21:40)
[2017-04-04] MEDS: INSULIN DETEMIR 100 UNITS/ML VIAL SQ SCH ×2 (09:20→22:34)
[2017-04-04] MEDS: INSULIN ASPART SUPPLEMENTAL SCALE SQ SCH ×4 (09:20→22:34)
[2017-04-04 09:50] LABS: HEMO FLAGS AUTO DIFF
[2017-04-04 10:38] LABS: PLATELET ESTIMATE SMEAR LOW (NORMAL); PLATELET MORPHOLOGY NORMAL (NORMAL); SCAN/DIFF AUTO DIFF CONFIRMED; TEARDROP RBCS 1+ (NORMAL)
--- NOTE | 2017-04-04 15:27 | HHI.PR ---
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 Patient seen and examined. Patients mother is at the bedside. Tmax 101.7. Alerted by nursing staff patient is oozing from PEG site and sacral wound. Patient s/p transfusion yesterday with good response in hgb. Objective Vitals Vital Signs Date Time Temp Pulse Resp B/P (MAP) Pulse Ox O2 Delivery O2 Flow Rate FiO2 04/04/17 12:00 99.5 109 17 128/70 (89) 97 04/04/17 09:30 98 Trach Collar 5.00 T-Piece Humidified 04/04/17 08:00 98.3 117 17 122/77 (92) 98 04/04/17 04:00 101.7 04/04/17 00:00 97.6 107 19 138/79 (98) 97 04/03/17 22:05 T-Piece 5.00 04/03/17 20:00 96.0 100 20 130/79 (96) 96 04/03/17 16:00 101.7 116 17 131/78 (95) 96 I/O 04/03/17 04/03/17 04/03/17 04/04/17 04/04/17 04/04/17 07:00 15:00 23:00 07:00 15:00 23:00 Intake Total 0 ml 402 ml 100 ml 1760 ml Output Total 900 ml 1600 ml 1200 ml Balance -900 ml 402 ml -1500 ml 560 ml Intake Oral 0 ml 0 ml 0 ml IV Total 100 ml 1100 ml Tube Feeding 660 ml Packed Cells 400 ml Blood Product IV Normal Saline Flush 2 ml Output Urine Total 900 ml 1600 ml 1200 ml # Bowel Movements 2 2 2 Result Diagram: 04/04/17 0712 04/04/17 0357 Imaging Last Impressions Chest X-Ray 04/03/17 0000 Signed Impressions: Service Date/Time: March 15:58 - CONCLUSION: Small lung volumes remain. Mild interstitial prominence without focal infiltrate. Sheldon Garcia MD Liver Ultrasound 04/02/17 0000 Signed Impressions: Service Date/Time: Sunday, April 02, 2017 18:36 - CONCLUSION: 1. Small hypoechoic lesion in the right hepatic lobe that is not convincing for a cyst or other benign structure. A small metastatic lesion would be in the differential. I don't clearly see it on the prior CTs. Abdomen MRI with and without contrast may be helpful. 2. Hepatomegaly. 3. Sludge and small stones in the gallbladder. No evidence of cholecystitis or biliary obstruction. Glen Moore MD Brain MRI 03/14/17 0000 Signed Impressions: Service Date/Time: Tuesday, March 14, 2017 12:41 - CONCLUSION: The signal abnormality and enhancement within the bilateral occipital lobes and colin have decreased since the prior examinations. No new abnormality is identified. There is no new enhancing area or signs of a recent ischemia. Glen Gordon MD Chest CT 03/10/17 0000 Signed Impressions: Service Date/Time: Friday, March 10, 2017 21:00 - CONCLUSION: 1. Periaortic soft tissue along the proximal descending thoracic aorta not previously seen. This represents either lymphomatous involvement or adjacent consolidated airspace disease. 2. Mild bilateral airspace disease 3. No evidence of significant lymphadenopathy involving the mediastinum, hilar regions, axillas or supraclavicular lore chain. 4. Tracheostomy tube in place. Ernesto Kulkarni MD Abdomen/Pelvis CT 02/27/17 0000 Signed Impressions: Service Date/Time: February 02:24 - CONCLUSION: 1. Abdominal aortic aneurysm. 2. Bladder mass is noted on the right posteriorly with apparent extravesical extension and clot formation. 3. Left renal cyst. 4. Left lower lobe atelectasis. 5. Large sacral decubitus ulcer with bony destruction and sclerosis of the sacrum mid to left lateral portion in the region of S3 and inferiorly which would suggest chronic osteomyelitis in the appropriate clinical setting. Rajan Granados MD Soft Tissue Ultrasound 02/26/17 0000 Signed Impressions: Service Date/Time: Sunday, February 26, 2017 12:52 - CONCLUSION: 1. Just inferior to the G-tube in the left abdomen, there is a superficial 3.8 x 2.9 0.9 cm complex fluid collection in the subcutaneous tissues. 2. Findings are nonspecific. This could represent a small seroma or abscess. Would consider CT scan of the abdomen without contrast for further evaluation to determine if there is intraperitoneal extension. Bobby Gray MD Gastrostomy Tube Placement 02/25/17 0000 Signed Impressions: Service Date/Time: Saturday, February 25, 2017 14:19 - CONCLUSION: Uncomplicated exchange of gastroenteric feeding tube for gastrostomy tube as above. Positioning confirmed. The tube can be used immediately. Glen Zamora MD Tube Change 02/14/17 0000 Signed Impressions: Service Date/Time: Tuesday, February 14, 2017 00:00 - CONCLUSION: Uncomplicated gastrojejunostomy tube exchange as above. Scott Griffin MD Head CT 01/09/17 0000 Signed Impressions: Service Date/Time: December 17:43 - CONCLUSION: 1. No acute hemorrhage or mass effect. 2. 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 3. Atrophy. Gerald Mukherjee MD CT Angiography 01/09/17 0000 Signed Impressions: Service Date/Time: December 17:49 - CONCLUSION: 1. No evidence of pulmonary emboli. 2. Patchy consolidation in both posterior lower lobes right greater than left. This could represent pneumonia. 3. 2 small noncalcified pulmonary nodules which are nonspecific finding. Short-term CT followup is recommended beginning in 6 months with a noncontrast outpatient CT. Gerald Mukherjee MD Tube Check 12/04/16 0000 Signed Impressions: Service Date/Time: Sunday, December 04, 2016 17:58 - CONCLUSION: Uncomplicated tube injection as above. the tube is in good position and functions normally. Moises Ramírez MD Abdomen X-Ray 08/31/16 0000 Signed Impressions: Service Date/Time: Wednesday, August 31, 2016 16:36 - CONCLUSION: 1. No acute findings. Mild constipation. Durga Dotson MD Head Magnetic Resonance Angiography 03/05/16 0000 Signed Impressions: Service Date/Time: Saturday, March 05, 2016 09:26 - CONCLUSION: Persistent high-grade subtotal occlusive stenotic lesions in the distal right vertebral artery and proximal basilar artery with significant improvement in flow and recanalization following initial presentation of thrombosis. Stable interstitial circulation without significant stenosis. Ernesto Kulkarni MD Neck Magnetic Resonance Angiography 12/22/15 1445 Signed Impressions: Service Date/Time: Tuesday, December 22, 2015 09:22 - CONCLUSION: Variant origin of the left vertebral artery from the aortic arch. No evidence of carotid stenosis. Glen Zamora MD Head/Brain Mag Res Venography 12/22/15 0000 Signed Impressions: Service Date/Time: Tuesday, December 22, 2015 09:22 - CONCLUSION: Normal MRV. Jonel Jones Jr., MD Objective Remarks GENERAL: WDWN male, in no apparent distress. Nonverbal. Opens his eyes. Does not follow commands. Mother is at the bedside. SKIN: Warm and dry. No rash noted. Examination of sacral decubitus reveals full thickness skin loss with deep tunnelling circumferentially and small amount of active bleeding. HEENT: Normocephalic. Eyes non-icteric without injection or drainage. Nose without bleeding. NECK: Trachea midline. CARDIOVASCULAR: Regular rate and rhythm without murmurs, gallops, or rubs. RESPIRATORY: Upper airway noise noted. No accessory muscle use. Trach in place. GASTROINTESTINAL: Abdomen soft, non-tender, nondistended. BS active x [address] quads[address] tube in place, with small amount of surrounding erythema, ? purulence and e/ o previous oozing. No active bleeding appreciated. : Lopez catheter in place with pinkish urine in bag. MUSCULOSKELETAL: Extremities without clubbing, cyanosis, Bilateral feet +1 edema. Upper extremities slightly edematous. NEUROLOGICAL: Awake. Patient not following commands. Not tracking. Nonverbal. Procedures 07/22/2016 Wide excision of sacral skin wound, biopsy of the cavity lining and debridement. PEG removal and Gj tube placement 07/29/16 VAC changes- M-W-F 10/23/16, 11/18, 12/31- GJ tube replacement 01/02/16 PEG placement 01/02/16 tracheostomy 02/25/17 PEG replacement 03/03/17 Cystoscopy and palliative transurethral resection of bladder tumor greater than 5cm originating from the right bladder wall Medications and IVs Current Medications Medications (Trade) Dose Ordered Sig/Junior Route Start Time Stop Time Status Last Admin (NS Flush) 2 ml UNSCH PRN IVF 12/21/15 06:00 03/27/17 07:40 (Keppra Liq) 500 mg Q12HR TUBE 12/27/15 21:00 04/04/17 09:00 (Tylenol 650 Mg/ 20 ml Liq) 650 mg Q6H PRN TUBE 12/30/15 15:15 04/04/17 04:59 (Mycostatin Powder) 1 applic Q12HR TOPICAL 01/08/16 21:00 04/04/17 09:11 (Pill Splitter) 1 ea UNSCH PRN OTHER 01/14/16 08:30 (Acetic Acid 0.25% Irr Btl) 10 ml Q8HR IRRIGATION 02/05/16 16:00 04/03/17 22:04 (Paxil Liq) 20 mg DAILY@1900 PEG 03/12/16 19:00 Future hold 04/03/17 17:22 (Zofran Inj) 4 mg Q6HR PRN IV PUSH 04/14/16 19:45 03/16/17 16:00 (Xopenex Neb) 0.63 mg Q4HR NEB PRN NEB 05/05/16 12:00 03/30/17 21:58 (Aspirin) 325 mg DAILY TUBE 05/27/16 11:40 Future hold 04/04/17 09:04 (Baciguent Oint) 1 applic BID TOP 07/20/16 10:00 04/04/17 09:12 ([place]) 1 spray BID NASAL 08/01/16 21:00 04/04/17 09:00 (Tears Naturale Opth Soln) 1 drop BID EACH EYE 09/05/16 21:00 04/04/17 09:11 (Morphine Inj) 1 mg Q24H PRN IV PUSH 09/17/16 14:30 10/22/16 02:00 (Dulcolax Supp) 10 mg DAILY PRN RECTAL 09/26/16 15:30 12/08/16 09:17 (Tylenol - Codeine 120-12 Liq) 5 ml Q4H PRN G-TUBE 12/27/16 15:30 03/31/17 05:50 (Imodium Liq) 2 mg Q6H PRN PEG 12/27/16 15:30 04/01/17 08:29 (Milk Of Magnesia Liq) 30 ml DAILY PRN PEG 12/27/16 15:30 02/11/17 08:46 (Milk Of Magnesia Liq) 30 ml DAILY PEG 12/28/16 09:00 Future Hold 01/19/17 08:44 (Senna Liq) 8.8 mg DAILY@1600 PEG 12/27/16 16:00 Future Hold 03/24/17 17:13 (Lactulose Liq) 30 ml DAILY PRN PEG 12/27/16 15:30 (Prevacid Odt) 30 mg BID NG 01/26/17 21:00 04/04/17 09:04 (Ferrous Sulfate Liq) 300 mg DAILY PO 02/14/17 09:00 04/04/17 09:03 (Vitamin C) 1,000 mg DAILY PO 02/14/17 09:00 04/04/17 09:04 (Bacitracin Oint Packet) 0.9 gm DAILY TOPICAL 02/25/17 09:00 04/03/17 08:22 (Levsin) 0.25 mg Q8HR G-TUBE 03/18/17 22:00 04/04/17 13:25 Pharmacy Profile Note 0 ml @ 0 mls/hr UNSCH OTHER 03/19/17 15:30 Piperacillin Sod/ Tazobactam Sod 100 ml @ 200 mls/hr Q8H IV 03/24/17 14:00 04/04/17 13:39 (NovoLOG SUPPLEMENTAL SCALE) 1 ACHS SLIDING SCALE SQ 03/26/17 21:00 04/04/17 13:26 (D50w (Vial) Inj) 50 ml UNSCH PRN IV PUSH 03/26/17 18:15 (Glucagon Inj) 1 mg UNSCH PRN OTHER 03/26/17 18:15 (Levemir Inj) 10 units Q12HR SQ 03/28/17 21:00 04/04/17 09:20 (Cardizem) 60 mg QID PEG 03/28/17 18:00 04/04/17 13:25 Sodium Chloride 1,000 ml @ 65 mls/hr [id number] IV 04/01/17 12:30 04/04/17 01:35 (Tylenol) 650 mg Q4H PRN PO 04/02/17 10:45 04/03/17 05:26 (Benadryl) 25 mg Q4H PRN PO 04/02/17 10:45 04/03/17 05:26 Date of Insertion: Mar 03, 2017 A/P Problem List: (1) CVA (cerebral vascular accident) ICD Code: I63.9 - Cerebral infarction, unspecified Status: Acute (2) A-fib ICD Code: I48.91 - Unspecified atrial fibrillation Status: Chronic (3) DM (diabetes mellitus) ICD Code: E11.9 - Type 2 diabetes mellitus without complications Status: Chronic (4) Hyponatremia ICD Code: E87.1 - Hypo-osmolality and hyponatremia Status: Acute Assessment and Plan 60 year-old male with past medical history of paroxysmal A. fib, hypertension, stage III non-Hodgkin's lymphoma status post chemotherapy who came into the hospital with altered mental status. PEG tube site cellulitis - ID following, appreciate their assistance - wound culture positive for Kleb pneumo sensitive to Levaquin - SP treatment with IV Levaquin x 5 days however there is still purulence observed. Continue wound care. Reculture wound. - As per Wound care recommendations. Cleanse around PEG tube site with normal saline and apply drain sponge around tube secure tube and drain sponge with medifix tape change as needed. Please use skin prep before applying adhesives to skin. Continue. 03/23 purulent discharge observed from PEG site - re ordered wound culture and will reconsult ID. 03/24 ID reconsulted recommendations pending. Patient with low grade fever overnight with a tmax of 99.7. Will start on Iv broad spectrum antibiotics ( Vancomycin and Zosyn IV), check blood cultures, CXR and urinalysis 03/25 UA (+) with urine culture growing gram negative rods. Continue IV zosyn and fu ID recommendations. blood cultures negative. Consult infectious GI to asses PEG tube. 03/26 GI recommendations pending regarding PEG tube. Continue IV zosyn for now. 03/27 No fevers. Continue antibiotics as per ID. Continue Zosyn, repeat cultures if febrile. 03/24 Urine culture is growing pseudomonas. 04/01 urine cx with no growth x 48hrs. 03/23 wound culture growing MDR pseudomonas. GI reconsulted however patient no seen yet. 03/25 BCX with no growth x 5 days. Fever - tmax 101.7 - uncertain source - white count 5.4 - Patient currently on Zosyn - ID following - Blood cultures show no growth x 1 day, CXR shows mild interstitial prominence and UA reveals mod leukocytes, 9 WBC, cx indicated. Sputum cx pending. Follow up on urine cx results - C diff ordered as patient with some diarrhea - symptomatic treatment CAREN - creatinine improved - avoid nephrotoxic agents - gentle IVF - monitor BMP Bladder cancer - s/p bladder bx positive for small cell carcinoma. - CT of the abdomen showed bladder mass right posteriorly with apparent extravesical extension and clot formation. - Urology spoke with family member, daughter, states that he's not recommending biopsy of the bladder mass. However daughter insisted on biopsy. Patient s/p cystoscopy and palliative transurethral resection of bladder tumor greater than 5 cm originating from right bladder wall performed by Dr. Sewell . 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 - Oncology following - appreciate their assistance. Family requesting aggressive therapy. CT chest negative for malignancy. MRI completed. Patient is not a candidate for chemotherapy. Family has decided on palliative XRT treatment and would like it to start MIGEL. Consult placed for radiation oncology. - Palliative care following, appreciate their assistance. - Continue to flush lopez catheter PRN. Monitor for recurrence of hematuria - Patient is currently undergoing radiation therapy. Monitor for side effects. - 03/28 Mild hematuria today, continue to monitor urine output or for side effects. Hold Coumadin for now until hematuria resolves. Resume Coumadin once hematuria resolves. - 03/29 Continues on Coumadin. No observed hematuria. - 04/02 Liver US shows small hypoechoic lesion in the right hepatic lobe that is not convincing for a cyst or other benign structure. A small metastatic lesion would be in the differential. Hepatomegaly. Sludge and small stones in the gallbladder. No evidence of cholecystitis or biliary obstruction. - 04/04 pinkish urine in bag. Will continue on Coumadin for now. Monitor H/ H closely. Monitor INR closely. Patient has completed 01/27 radiations treatments. 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 Intermittently tracks with eyes. - Continue Keppra 500mg BID for seizure prophylaxis. Keppra level 17.8. - PT/OT signed off as patient is unable to participate. - On Paxil 20 by mouth daily for depression. - On acetaminophen with codeine for pain scale of 2-10. - Morphine 1 mg every 24 hours when necessary for dressing change Chronic respiratory failure secondary to CVA - Status post tracheostomy. Continue pulmonary toilet and bronchodilators as needed. Continue trach care, suctioning. Increased secretions improved with scheduled Levsin. Decreased dosing of scheduled Levsin to q8h. - Pulmonary currently following, appreciate assistance. - Duo nebs every 4 hours while awake Atrial fibrillation, controlled Hypertension Dyslipidemia - Continue rate control with Cardizem and metoprolol. - [id number] score 4 - Echocardiogram in November 2015 shows preserved ejection fraction. - continue on Coumadin. INR 2.9. Pharmacy to dose. Continue to monitor INR. - Continue aspirin - Continue on Cardizem 60mg QID History of non-Hodgkin's lymphoma - Status post brain biopsy on December 13 by neurosurgery. Pathology consistent with acute infarct without evidence of lymphoma. Diabetes mellitus Type 2 - Hemoglobin A1c is 5.5. - Fingersticks have been stable and were DC'd 02/01/17 - 03/24 Blood sugar uncontrolled - Will resume Accu-Cheks and SSI with insulin NovoLog. - 03/27 Blood sugar severely elevated in the 200's. Will start SQ Levemir 5 units SQ BID. continue SSI with insulin Novolog. - 03/28 sugars still very elevated above the 200s. Will increase Levemir subcutaneously to 10 units subcutaneously twice a day. Continue SSI with insulin NovoLog. Continue to monitor Accu-Cheks. Decubitus ulcer stage IV - Status post wide excision of sacral skin and biopsy of the cavity lining with debridement on 07/22/16. - Continue pressure relief measures including turning and positioning. Continue to monitor. - Patient's family has declined a diverting colostomy. Previous Wound culture growing Klebsiella and Enterococcus Faecalis. Previously on Augmentin. - Wound care last saw patient on 03/14/17, no new recommendations continue packing with Betadine moistened rolled Janis and covered with ABD pad and paper tape to secure. - Morphine 1 mg every 24 hours when necessary for dressing change Protein calorie malnutrition Gastroesophageal reflux disease Gastric ulcer, reflux esophagitis Diarrhea, negative for C. difficile. Improved - EGD on 07/30/16 showed gastric ulcers. Continue on Prevacid 30 mg Q12. - G/J tube clogged, IR consulted to evaluate. Replaced on 02/25/17 - TF held 03/16 due to emesis. No recurrence. TF resumed yesterday - patient tolerating. Air Twister Winder consulted to assist with rate/needs. Per their recommendations, Rec increasing TF'ing 10ml/hr Q 6hr, as tolerated, to goal rate 55ml/hr. Rec to discontinue the Ashish r/t pt has received Ashish for Rec dosing of 4-weeks to promote new tissue growth. - Continue bowel regimen with hold parameters, Lactinex and Imodium. ( Klebsiella/Pseudomonas/staph aureus HCAP PSAE UTI - S/p Cefepime. Monitor for signs of infections. - strep pneumonia and Legionella urinary Ag is negative - C-diff PCR negative on 01/13 - 01/09 BC : Staph Epi, Urine cx: Pseudomonas, Sputum cx: Pseudomonas, kleb, Staph. - Patient was pancultured on 01/19 (Blood, sputum, urine) NGTD in urine and blood. Sputum + for pseudomonas. Likely colonization. - CXR 04/03/17 shows small lung volumes, mild interstitial prominence without focal infiltrate. Sputum cx pending. Hyponatremia - resolved Anemia - sp transfusion of 1 unit of PRBC on 03/24. Hemoglobin responded appropriately from 6.8 and 8.1. - Stool Hemoccult negative. - Continue to monitor cbc. - 04/01 Hemoglobin decr at 7.0. Transfuse for hemoglobin < 7. - 04/02 Hemoglobin 6.9, transfused 2units PRBCs. Good response with f/u hgb 9.0 - small amount of active bleeding from PEG site and sacral wound as well as pinkish urine in bag. Follow CBC closely. DVT prophylaxis: SCDs Discussed with mother, nursing staff and Dr. Foster Discharge Planning pt to complete radiation therapy in house prior to be discharged to [facility] Attending Statement The exam, history, and the medical decision-making described in the above note were completed with the assistance of the mid-level provider. I reviewed and agree with the findings presented. I attest that I had a [id number] encounter with the patient on the same day, and personally performed and documented my assessment and findings in the medical record. Pt non verbal, still spiking fevers. concerns from nursing staff that packing from sacral wound bloody. sacral wound packing removed and in fact has blood, some oozing noted but no active large amounts of blood noted, also some oozing also noted around the PEG tube however some ? purulence noted (unsure if its from the feeds). some pinks tinged urine noted as well. I spoke w palliative care. Tiara will meet w family on friday. Pt has completed 01/27 of the radiation treatments. At this time, Hb is stable post transfusion at 8.9 s/p 2 units PRBC. Monitor daily and closely as pt is oozing from his sacral wound and oozing from peg site and now urine w pink tinge. If pt continues to loose blood, the question becomes if we should hold the coumadin. INR today is 2.9. May need to touch base w rad/onc. Pt spiking fevers as well. repeat Blood cx pending, will send wound cx from peg site. check c. diff as pt had loose stools when we evaluated him as well. Problem Qualifiers (1) CVA (cerebral vascular accident): (2) DM (diabetes mellitus): Jaz Peraza Apr 04, 2017 15:27 Rekha Foster MD Apr 04, 2017 18:43
[2017-04-04] MEDS: PARoxetine HCL SUSP 20 MG/10 ML UDC PEG SCH ×2 (19:00→19:24)
[2017-04-05] VITALS (8 sets, daily range): BP systolic 113–136; BP diastolic 66–91; PULSE 104–119; RESP 16–22; TEMP 97.8–101.5; O2SAT 93–100
[2017-04-05 02:29] LABS: C. DIFF EPI 027 PRESUMPTIVE NEGATIVE (NEGATIVE)
[2017-04-05 06:00] LABS: AUTOMATED NEUTROPHIL # 3.4 TH/MM3 (1.8-7.7); BASOPHIL % 0.9 % (0.0-2.0); EOSINOPHIL # 0.2 TH/MM3 (0-0.4); EOSINOPHIL % 3.5 % (0.0-4.0); HEMATOCRIT 29.6 % (39.0-51.0); LYMPH % 18.3 % (9.0-44.0); LYMPHOCYTE # 0.9 TH/MM3 (1.0-4.8); MEAN CELL VOLUME 75.9 FL (80.0-100.0); MEAN CORPUSCULAR HEMOGLOBIN 25.4 PG (27.0-34.0); MEAN CORPUSCULAR HGB CONC 33.5 % (32.0-36.0); MONO % 7.7 % (0.0-8.0); NEUT % 69.6 % (16.0-70.0); PLATELET COUNT 85 TH/MM3 (150-450); RED CELL DISTRIBUTION WIDTH 22.5 % (11.6-17.2); WHITE BLOOD COUNT 4.9 TH/MM3 (4.0-11.0)
[2017-04-05] MEDS: ACETIC ACID 0.25% SOLN 1000 ML IRR BTL IRRIGATION SCH ×3 (06:00→21:32)
[2017-04-05 06:06] LABS: HEMO FLAGS AUTO DIFF
[2017-04-05 06:11] LABS: INTERNATIONAL NORMALIZED RATIO 2.7 RATIO; PROTHROMBIN TIME - PATIENT 30.8 SEC (9.8-11.6)
[2017-04-05 06:27] LABS: ALKALINE PHOSPHATASE 298 U/L (45-117); TOTAL BILIRUBIN ADULT 0.3 MG/DL (0.2-1.0)
[2017-04-05 06:29] LABS: ANION GAP 9 MEQ/L (5-15); AST (GOT) 120 U/L (15-37); BICARBONATE 26.7 MEQ/L (21.0-32.0); BLOOD UREA NITROGEN 28 MG/DL (7-18); CHLORIDE 105 MEQ/L (98-107); GLOMERULAR FILTRATION RATE 53 ML/MIN (>89); SODIUM (NA) 141 MEQ/L (136-145)
[2017-04-05] MEDS: PIPERACIL-TAZO 4.5 GM PREMIX 100 ML IV SCH ×3 (06:36→21:39)
[2017-04-05] MEDS: HYOSCYAMINE 0.125 MG TAB G-TUBE SCH ×3 (06:36→21:31)
[2017-04-05 06:38] LABS: POTASSIUM 3.9 MEQ/L (3.5-5.1)
[2017-04-05 07:00] LABS: ALT (GPT) 33 U/L (12-78)
[2017-04-05 07:34] LABS: BANDS 10 % (0-6); BASOPHILS 1 % (0-2); CORRECTED NUCLEATED RBC 3 /100 WBC (0-0); EOSINOPHILS 7 % (0-4); METAMYELOCYTES 3 % (0-1); NEUTROPHIL # MANUAL DIFF 3.8 TH/MM3 (1.8-7.7); POLYS (SEG NEUTROPHILS) 65 % (16-70); WBC DIFF SAMPLE 100
[2017-04-05 07:37] LABS: SCAN/DIFF FINAL DIFF MANUAL
[2017-04-05] MEDS: LANSOPRAZOLE SOLUTAB 30 MG TAB NG SCH ×2 (07:53→21:31)
[2017-04-05] MEDS: levETIRAcetam 500 MG/5 ML UDC TUBE SCH ×2 (07:54→21:00)
[2017-04-05] MEDS: ASCORBIC ACID 500 MG TAB PO SCH (07:54)
[2017-04-05] MEDS: DILTIAZEM HCL 30 MG TAB PEG SCH ×4 (07:54→21:31)
[2017-04-05] MEDS: ASPIRIN 325 MG TAB TUBE SCH (07:54)
[2017-04-05] MEDS: MAGNESIUM HYDROXIDE SUSP 30 ML CUP PEG SCH (07:55)
[2017-04-05] MEDS: INSULIN ASPART SUPPLEMENTAL SCALE SQ SCH ×4 (08:00→21:40)
[2017-04-05] MEDS: FERROUS SULFATE 300 MG /5ML UDC PO SCH (08:01)
[2017-04-05] MEDS: INSULIN DETEMIR 100 UNITS/ML VIAL SQ SCH ×2 (08:15→21:00)
[2017-04-05] MEDS: BACITRACIN TOP OINT 15 GM TUBE TOP SCH ×2 (08:16→21:00)
[2017-04-05] MEDS: NYSTATIN 100,000 U/GM PWD 15 GM BTL TOPICAL SCH ×2 (08:16→21:00)
[2017-04-05] MEDS: BACITRACIN OINT 0.9 GM PKT TOPICAL SCH (08:16)
[2017-04-05] MEDS: SODIUM CHLORIDE 0.65% NASAL SPRAY 45 ML BTL NASAL SCH ×2 (08:30→21:00)
[2017-04-05] MEDS: ARTIFICIAL TEARS OPTH SOLN 15 ML BTL EACH EYE SCH ×2 (08:30→21:33)
[2017-04-05] MEDS: SODIUM CHLOR 0.9% 1000 ML INJ 1,000 ML IV SCH (12:29)
[2017-04-05] MEDS: ACETAMINOPHEN 650 MG/20.3 ML UDC TUBE PRN ×2 (12:58→21:31)
[2017-04-05] MEDS: PARoxetine HCL SUSP 20 MG/10 ML UDC PEG SCH ×2 (17:12→18:16)
--- NOTE | 2017-04-05 17:23 | HHI.PR ---
Subjective Remarks Follow up for CVA fevers Patient's mother is at the bedside she is concerned that patient the moment does not have a IV. I dealt with charge nurse she stated that vascular access has been notified to replace IV since patient is a hard stick. Otherwise no other complaints. Patient continues to have fever. Objective Vitals Vital Signs Date Time Temp Pulse Resp B/P (MAP) Pulse Ox O2 Delivery O2 Flow Rate FiO2 04/05/17 16:00 100.1 118 17 113/66 (82) 93 04/05/17 12:00 101.5 119 16 134/68 (90) 97 04/05/17 09:49 100 T-piece 4.00 28 04/05/17 09:49 100 T-piece 4.00 28 04/05/17 08:00 97.8 119 18 136/91 (106) 97 04/05/17 00:00 98.1 104 17 124/76 (92) 98 04/04/17 22:05 T-Piece 5.00 04/04/17 21:45 100.7 122 20 135/75 (95) 96 04/04/17 20:00 99.8 120 17 127/71 (89) 95 I/O 04/04/17 04/04/17 04/04/17 04/05/17 04/05/17 04/05/17 07:00 15:00 23:00 07:00 15:00 23:00 Intake Total 1760 ml 1100 ml 1590 ml 100 ml Output Total 1200 ml 700 ml 600 ml Balance 560 ml 400 ml 990 ml 100 ml Intake Oral 0 ml 0 ml 240 ml IV Total 1100 ml 1100 ml 690 ml 100 ml Tube Feeding 660 ml 660 ml Output Urine Total 1200 ml 700 ml 600 ml # Bowel Movements 2 2 2 Result Diagram: 04/05/17 0538 04/05/17 0535 Objective Remarks Gen NAD CV RRR. no r//g Resp trach in place clear stalk station bilaterally abd soft NDNT pelvic show small amount by mouth and discharged at the site but no erythema NEURO she does not follow commands. Procedures 07/22/2016 Wide excision of sacral skin wound, biopsy of the cavity lining and debridement. PEG removal and Gj tube placement 07/29/16 VAC changes- M-W-F 10/23/16, 11/18, 12/31- GJ tube replacement 01/02/16 PEG placement 01/02/16 tracheostomy 02/25/17 PEG replacement 03/03/17 Cystoscopy and palliative transurethral resection of bladder tumor greater than 5cm originating from the right bladder wall Medications and IVs Current Medications IV Flush (NS Flush) 2 ml UNSCH PRN IVF FLUSH AFTER USING IV ACCESS Last administered on 03/27/17t 07:40; Start 12/21/15 at 06:00 Ondansetron HCl (Zofran Inj) 4 mg STK-MED ONCE .ROUTE ; Start 12/21/15 at 06:22; Stop 12/21/15 at 06:23; Status DC Ondansetron HCl (Zofran Inj) 4 mg ONCE ONCE IV PUSH Last administered on at 06:43; Start 12/21/15 at 06:30; Stop 12/21/15 at 06:31; Status DC Diltiazem HCl (Cardizem Inj) 20 mg ONCE ONCE IV Last administered on 12/21/15at 06:42; Start 12/21/15 at 06:30; Stop 12/21/15 at 06:31; Status DC Diltiazem HCl 125 mg/Sodium Chloride 125 ml @ 0 mls/hr TITRATE IV Last administered on 12/21/15at 06:47; Start 12/21/15 at 06:30; Stop 12/21/15 at 13:00; Status DC Acetaminophen (Tylenol) 650 mg ONCE ONCE PO ; Start 12/21/15 at 06:45; Stop 12/20 at 06:46; Status DC Lorazepam (Ativan Inj) 1 mg ONCE ONCE IV PUSH Last administered on 12/21/15at 07 :22; Start 12/21/15 at 07:15; Stop 12/21/15 at 07:16; Status DC Etomidate (Amidate Inj) 40 mg STK-MED ONCE .ROUTE Last administered on at 08:17; Start 12/21/15 at 07:37; Stop 12/21/15 at 07:38; Status DC Succinylcholine Chloride (Quelicin Inj) 200 mg STK-MED ONCE .ROUTE Last administered on 12/21/15at 08:18; Start 12/21/15 at 07:37; Stop 12/21/15 at 07:38; Status DC Propofol 100 ml @ As Directed STK-MED ONCE .ROUTE Last administered on at 08:19; Start 12/21/15 at 07:46; Stop 12/21/15 at 07:47; Status DC Propofol (Diprivan 1000 Mg/100ml Inj) search Sets for Drip. NOW PRN IV SEDATION Last administered on 12/22/15at 06:25; Start 12/21/15 at 08:30; Stop 12/28 at 15:43; Status DC Gadodiamide (Omniscan Pf Inj) 18 ml STK-MED ONCE IV Last administered on at 10:11; Start 12/21/15 at 10:11; Stop 12/21/15 at 10:12; Status DC Pantoprazole Sodium (Protonix Inj) 40 mg DAILY IV Last administered on at 07:39; Start 12/21/15 at 13:00; Stop 01/03/16 at 10:10; Status DC Albuterol/ Ipratropium (Duoneb Neb) 1 ampule Q6HR NEB INH Last administered on 12/25/15at 07:51; Start 12/21/15 at 13:00; Stop 12/25/15 at 13:00; Status DC Miscellaneous Information 1 [id number] Last administered on 12/21/15at 13:00; Start 12/21/15 at 13:00; Stop 01/12/16 at 11:47; Status DC Chlorhexidine Gluconate (Chlorhexidine 2% Cloth) 3 pack Taper DAILY@04 TOP Last administered on 01/11/16at 04:10; Start 12/22/15 at 04:00; Stop 01/12/16 at 11:47; Status DC Chlorhexidine Gluconate (Chlorhexidine 2% Cloth) 3 pack UNSCH PRN TOP HYGIENIC CARE; Start 12/21/15 at 13:00; Stop 01/12/16 at 11:47; Status DC Sodium Chloride 1,000 ml @ 75 mls/hr [id number] IV Last administered on 12/22/15at 17:00; Start 12/21/15 at 13:00; Stop 12/22/15 at 19:01; Status DC Dextrose (D50w (Vial) Inj) 25 ml UNSCH PRN IV PUSH HYPOGLYCEMIA-SEE COMMENTS; Start 12/21/15 at 13:00; Stop 04/19/16 at 17:19; Status DC Glucagon (Glucagon Inj) 1 mg UNSCH PRN OTHER HYPOGLYCEMIA-SEE COMMENTS; Start 12/21/15 at 13:00; Stop 04/19/16 at 17:19; Status DC Insulin Human Regular (NovoLIN R SUPPLEMENTAL SCALE) 1 Q6H SQ Last administered on 01/04/16at 06:31; Start 12/21/15 at 13:00; Stop 01/04/16 at 10:05 ; Status DC Levetriacetam (Keppra) 500 mg Q12HR PO Last administered on 12/27/15at 09:00; Start 12/21/15 at 13:45; Stop 12/27/15 at 09:44; Status DC Heparin Sodium (Porcine) (Heparin Inj) 5,000 units BID SQ Last administered on 12/22/15at 20:52; Start 12/21/15 at 21:00; Stop 12/23/15 at 08:32; Status DC Warfarin Sodium (Coumadin) 7.5 mg ONCE ONCE PO Last administered on 12/21/15at 21:43; Start 12/21/15 at 21:00; Stop 12/21/15 at 21:01; Status DC Warfarin Sodium (Coumadin) 5 mg DAILY@16 PO Last administered on 12/23/15at 16:00 ; Start 12/22/15 at 16:00; Stop 12/26/15 at 09:29; Status DC Patient Medication Teaching (Coumadin Booklet) 1 ONCE ONCE XX Last administered on 12/21/15at 20:15; Start 12/21/15 at 20:15; Stop 12/21/15 at 20:16; Status DC Chlorhexidine Gluconate (Peridex 0.12% Liq) 15 ml BID@08,20 MT Last administered on 01/12/16at 08:00; Start 12/22/15 at 20:00; Stop 01/12/16 at 11:47 ; Status DC Gadodiamide (Omniscan Pf Inj) 20 ml STK-MED ONCE IV Last administered on at 09:55; Start 12/22/15 at 09:55; Stop 12/22/15 at 09:56; Status DC Pharmacy Profile Note ml @ 0 mls/hr UNSCH OTHER ; Start 12/22/15 at 11:00; Stop 12/22/15 at 19:43; Status DC Sodium Chloride 1,000 ml @ 50 mls/hr Q20H IV Last administered on 12/24/15at 20: 02; Start 12/22/15 at 18:44; Stop 12/25/15 at 11:52; Status DC Pharmacy Profile Note 0 ml @ 0 mls/hr UNSCH OTHER ; Start 12/22/15 at 19:45; Stop 01/04/16 at 12:25; Status DC Acetaminophen (Tylenol) 650 mg Q6H PRN PO TEMP > 100 Last administered on at 13:24; Start 12/23/15 at 02:45; Stop 12/30/15 at 15:04; Status DC Potassium Chloride 100 ml @ 50 mls/hr Q2H PRN IV For Potassium 2.8 - 3.2 mEq/L ; Start 12/23/15 at 08:30; Stop 01/09/16 at 11:14; Status DC Potassium Chloride 100 ml @ 50 mls/hr Q2H PRN IV For Potassium 2.8 - 3.2 mEq/L ; Start 12/23/15 at 08:30; Stop 01/09/16 at 11:14; Status DC Potassium Chloride (KCl 40 Meq/30 ml Liq) 40 meq UNSCH PRN PO/TUBE For Potassium 3.3 - 3.5 mEq/L; Start 12/23/15 at 08:30; Stop 01/09/16 at 11:14; Status DC Potassium Chloride 100 ml @ 25 mls/hr UNSCH PRN IV For Potassium 3.3 - 3.5 mEq /L; Start 12/23/15 at 08:30; Stop 01/09/16 at 11:14; Status DC Potassium Chloride 100 ml @ 50 mls/hr Q2H PRN IV For Potassium 3.3 - 3.5 mEq/L ; Start 12/23/15 at 08:30; Stop 01/09/16 at 11:14; Status DC Magnesium Sulfate 4 gm/Sodium Chloride 100 ml @ 50 mls/hr UNSCH PRN IV For Magnesium 0.9 - 1.1 mg/dL; Start 12/23/15 at 08:30; Stop 01/09/16 at 11:14; Status DC Magnesium Oxide (Mag-Ox) 800 mg UNSCH PRN PO For Magnesium 1.2 - 1.6 mg/dL; Start 12/23/15 at 08:30; Stop 01/09/16 at 11:14; Status DC Magnesium Sulfate 2 gm/Sodium Chloride 100 ml @ 50 mls/hr UNSCH PRN IV For Magnesium 1.2 - 1.6 mg/dL; Start 12/23/15 at 08:30; Stop 01/09/16 at 11:14; Status DC Potassium Phosphate (K-Phos) 2,000 mg Q4H PRN PO For Phosphorus < 2.5 mg/dL; Start 12/23/15 at 08:30; Stop 01/09/16 at 11:14; Status DC Sodium Phosphate 30 mmol/Sodium Chloride 250 ml @ 42 mls/hr UNSCH PRN IV For Phosphorus < 2.5 mg/dL; Start 12/23/15 at 08:30; Stop 01/09/16 at 11:14; Status DC Potassium Chloride (KCl 40 Meq/30 ml Liq) 40 meq UNSCH PRN PO/TUBE SEE LABEL COMMENTS; Start 12/23/15 at 08:30; Stop 01/09/16 at 11:14; Status DC Potassium Phosphate (K-Phos) 2,000 mg UNSCH PRN PO/TUBE SEE LABEL COMMENTS; Start 12/23/15 at 08:30; Stop 01/09/16 at 11:14; Status DC Potassium Phosphate 30 mmol/ Sodium Chloride 260 ml @ 42 mls/hr UNSCH PRN IV SEE LABEL COMMENTS; Start 12/23/15 at 08:30; Stop 01/09/16 at 11:14; Status DC Sodium Chloride 1,000 ml @ 75 mls/hr [id number] IV ; Start 12/23/15 at 08:30; Stop 12/23/15 at 08:30; Status DC Piperacillin Sod/ Tazobactam Sod 50 ml @ 100 mls/hr Q6H IV Last administered on 12/30/15at 10:02; Start 12/23/15 at 10:00; Stop 12/30/15 at 14:50; Status DC Vancomycin HCl 1000 mg/Sodium Chloride 250 ml @ 250 mls/hr Q12H IV Last administered on 12/29/15at 09:01; Start 12/24/15 at 08:45; Stop 12/29/15 at 15:33 ; Status DC Warfarin Sodium (Coumadin) 4 mg DAILY@16 PO Last administered on 12/28/15at 16:00 ; Start 12/26/15 at 16:00; Stop 01/04/16 at 12:25; Status DC Levetriacetam (Keppra Liq) 500 mg Q12HR TUBE Last administered on 04/05/17t 07 :54; Start 12/27/15 at 21:00 Docusate Sodium (Colace Liq) 100 mg Q12HR TUBE Last administered on 01/15/16at 09:01; Start 12/27/15 at 21:00; Stop 04/16/16 at 08:50; Status DC Sennosides (Senna Liq) 8.8 mg DAILY TUBE Last administered on 01/15/16at 09:01 ; Start 12/27/15 at 17:00; Stop 01/15/16 at 20:37; Status DC Bisacodyl (Dulcolax Supp) 10 mg ONCE ONCE RECTAL ; Start 12/27/15 at 16:15; Stop 12/27/15 at 16:15; Status DC Albuterol/ Ipratropium (Duoneb Neb) 1 ampule Q4HR NEB PRN NEB RESPIRATORY DISTRESS Last administered on 12/29/15at 12:17; Start 12/27/15 at 22:00; Stop at 08:16; Status DC Bisacodyl (Dulcolax Supp) 10 mg ONCE ONCE RECTAL ; Start 12/28/15 at 12:00; Stop 12/28/15 at 12:01; Status DC Sodium Chloride (Sodium Chloride) 1 gm BID TUBE Last administered on 12/29/15at 09:02; Start 12/28/15 at 21:00; Stop 12/29/15 at 15:43; Status DC Lactulose (Lactulose Liq) 30 ml DAILY TUBE Last administered on 12/29/15at 09:02 ; Start 12/28/15 at 20:30; Stop 12/29/15 at 15:43; Status DC Levofloxacin (Levaquin) 750 mg DAILY@16 TUBE ; Start 12/29/15 at 16:00; Stop 05/05 at 16:00; Status DC Sodium Chloride (Sodium Chloride) 1 gm DAILY TUBE Last administered on at 07:29; Start 12/30/15 at 09:00; Stop 12/31/15 at 14:08; Status DC Water (Free Water) 200 ml Q6HR G-TUBE Last administered on 12/31/15at 04:19; Start 12/30/15 at 14:45; Stop 12/31/15 at 07:31; Status DC Ceftriaxone Sodium 1000 mg/ Sodium Chloride 100 ml @ 200 mls/hr Q12H IV Last administered on 01/03/16at 02:47; Start 12/30/15 at 15:00; Stop 01/03/16 at 10:09 ; Status DC Acetaminophen (Tylenol 650 Mg/ 20 ml Liq) 650 mg Q6H PRN TUBE TEMP >100.4 Last administered on 04/05/17t 12:58; Start 12/30/15 at 15:15 Lactobacillus Acidophilus (Lactinex Pkt) 1 gm BID TUBE Last administered on at 09:00; Start 12/30/15 at 21:00; Stop 02/10/16 at 14:30; Status DC Enoxaparin Sodium (Lovenox Inj) 90 mg Q12H SQ Last administered on 01/01/16at 21 :57; Start 12/31/15 at 08:00; Stop 01/03/16 at 10:33; Status DC Water (Free Water) 100 ml Q12H G-TUBE ; Start 12/31/15 at 18:00; Stop 12/31/15 at 18:00; Status DC Acetaminophen/ Hydrocodone Bitart ([place] 5-325 Mg) 1 tab Q6H PRN PO PAIN Last administered on 05/26/16at 20:46; Start 12/31/15 at 15:00; Stop 06/02/16 at 21: 44; Status DC Fentanyl Citrate (Sublimaze Inj) 25 mcg Q1H PRN IV PUSH BREAKTHROUGH PAIN; Start 12/31/15 at 15:00; Stop 03/06/16 at 10:03; Status DC Water (Free Water) 200 ml Q8H G-TUBE Last administered on 01/01/16at 17:55; Start 12/31/15 at 18:00; Stop 01/02/16 at 09:56; Status DC Sodium Chloride (Sodium Chloride) 1 gm BID TUBE Last administered on 01/03/16at 07:39; Start 12/31/15 at 21:00; Stop 01/03/16 at 09:08; Status DC Miscellaneous Information Hold Anticoagulation after midni... ONCE ONCE OTHER ; Start 01/01/16 at 10:15; Stop 01/01/16 at 10:29; Status DC Sodium Chloride 1,000 ml @ 50 mls/hr Q20H IV Last administered on 01/02/16at 12 :26; Start 01/01/16 at 18:00; Stop 01/03/16 at 10:07; Status DC Midazolam HCl (Versed Inj) 5 mg STK-MED ONCE .ROUTE ; Start 01/02/16 at 12:47; Stop 01/02/16 at 12:48; Status DC Vecuronium [place] (Norcuron 10 Mg Inj) 10 mg STK-MED ONCE .ROUTE ; Start at 12:47; Stop 01/02/16 at 12:48; Status DC Fentanyl Citrate (Sublimaze Inj) 250 mcg ONCE ONCE IV PUSH Last administered on 01/02/16at 15:00; Start 01/02/16 at 15:00; Stop 01/02/16 at 15:01; Status DC Midazolam HCl (Versed Inj) 10 mg ONCE ONCE IV PUSH Last administered on at 15:00; Start 01/02/16 at 15:00; Stop 01/02/16 at 15:01; Status DC Rocuronium [place] (Zemuron Inj) 100 mg BOLUS ONCE IV Last administered on at 15:00; Start 01/02/16 at 15:00; Stop 01/02/16 at 15:01; Status DC Ketamine HCl (Ketalar Inj) 500 mg STK-MED ONCE .ROUTE ; Start 01/02/16 at 14:30 ; Stop 01/02/16 at 14:31; Status DC Propofol (Diprivan 200 Mg/20 ml Inj) 230 mg STK-MED ONCE IV ; Start 01/02/16 at 16:51; Stop 01/02/16 at 16:52; Status DC Sodium Chloride 1,000 ml @ 0 mls/hr Q0M IV ; Start 01/03/16 at 10:15; Stop at 17:30; Status DC Ranitidine HCl (Zantac Liq) 150 mg Q12HR PO Last administered on 01/17/16at 07: 39; Start 01/04/16 at 09:00; Stop 01/17/16 at 15:23; Status DC Enoxaparin Sodium (Lovenox Inj) 90 mg Q12HR SQ Last administered on 01/11/16at 10:01; Start 01/04/16 at 09:00; Stop 01/11/16 at 12:35; Status DC Sodium Chloride 500 ml @ 0 mls/hr BOLUS ONCE IV Last administered on at 22:57; Start 01/03/16 at 23:00; Stop 01/03/16 at 23:01; Status DC Insulin Aspart (NovoLOG SUPPLEMENTAL SCALE) 1 Q6HR SQ Last administered on at 12:00; Start 01/04/16 at 12:00; Stop 03/24/16 at 13:58; Status DC Potassium Chloride (KCl 40 Meq/30 ml Liq) 40 meq Q4H NG Last administered on at 16:21; Start 01/04/16 at 13:00; Stop 01/04/16 at 17:01; Status DC Warfarin Sodium (Coumadin) 5 mg DAILY@1600 PO Last administered on 01/09/16at 17 :21; Start 01/04/16 at 16:00; Stop 01/10/16 at 10:06; Status DC Pharmacy Profile Note 0 ml @ 0 mls/hr UNSCH XX ; Start 01/04/16 at 12:30; Stop 04/20/16 at 12:04; Status DC Insulin Detemir (Levemir Inj) 10 units Q12HR SQ Last administered on 01/05/16at 08:00; Start 01/04/16 at 21:00; Stop 01/05/16 at 08:42; Status DC Insulin Detemir (Levemir Inj) 5 units NOW ONCE SQ Last administered on at 13:28; Start 01/04/16 at 12:45; Stop 01/04/16 at 12:46; Status DC Albuterol/ Ipratropium (Duoneb Neb) 1 ampule Q4HR NEB PRN NEB dyspnea Last administered on 04/19/16at 02:24; Start 01/07/16 at 08:15; Stop 04/25/16 at 18:54 ; Status DC Warfarin Sodium (Coumadin) 7.5 mg ONCE ONCE PO Last administered on 01/07/16at 16:40; Start 01/07/16 at 16:00; Stop 01/07/16 at 16:01; Status DC Nystatin (Mycostatin Powder) 1 applic Q12HR TOPICAL Last administered on t 08:16; Start 01/08/16 at 21:00 Ipratropium [place] (Atrovent Neb) 0.5 mg TID NEB NEB Last administered on 02/20at 13:17; Start 01/08/16 at 20:00; Stop 02/21/16 at 17:52; Status DC Warfarin Sodium (Coumadin) 5 mg DAILY@1600 PO Last administered on 01/11/16at 14 :26; Start 01/11/16 at 16:00; Stop 01/12/16 at 09:45; Status DC Warfarin Sodium (Coumadin) 6 mg ONCE PO Last administered on 01/10/16at 17:10; Start 01/10/16 at 16:00; Stop 01/10/16 at 21:00; Status DC Metoprolol Tartrate (Lopressor) 50 mg Q12HR GT Last administered on 01/11/16at 10:02; Start 01/10/16 at 11:00; Stop 01/11/16 at 12:30; Status DC Metoprolol Tartrate (Lopressor) 50 mg TID GT Last administered on 01/14/16at 08: 24; Start 01/11/16 at 13:00; Stop 01/14/16 at 08:28; Status DC Insulin Detemir (Levemir Inj) 10 units HS SQ Last administered on 01/11/16at 22: 23; Start 01/11/16 at 21:00; Stop 01/12/16 at 11:47; Status DC Warfarin Sodium (Coumadin) 4 mg DAILY@16 PO ; Start 01/12/16 at 16:00; Stop at 16:00; Status DC Insulin Detemir (Levemir Inj) 20 units HS SQ Last administered on 01/13/16at 20: 26; Start 01/12/16 at 21:00; Stop 01/14/16 at 08:28; Status DC Warfarin Sodium (Coumadin) 2 mg DAILY@16 PO Last administered on 01/13/16at 17: 05; Start 01/12/16 at 16:00; Stop 01/14/16 at 11:23; Status DC Insulin Detemir (Levemir Inj) 22 units HS SQ Last administered on 01/14/16at 21: 37; Start 01/14/16 at 21:00; Stop 01/15/16 at 10:06; Status DC Metoprolol Tartrate (Lopressor) 75 mg TID GT Last administered on 03/10/16at 17: 43; Start 01/14/16 at 09:00; Stop 03/10/16 at 21:13; Status DC Miscellaneous (Pill Splitter) 1 ea UNSCH PRN OTHER SEE LABEL COMMENTS; Start at 08:30 Warfarin Sodium (Coumadin) 4 mg DAILY@1600 PO Last administered on 01/21/16at 16: 51; Start 01/14/16 at 16:00; Stop 01/23/16 at 09:29; Status DC Patient Medication Teaching (Coumadin Booklet) 1 ONCE ONCE XX ; Start 01/14/16 at 16:00; Stop 01/14/16 at 16:01; Status DC Insulin Detemir (Levemir Inj) 24 units HS SQ Last administered on 03/04/16at 21: 09; Start 01/15/16 at 21:00; Stop 03/05/16 at 11:17; Status DC Citalopram Hydrobromide (CeleXA) 20 mg DAILY PEG Last administered on at 08:01; Start 01/16/16 at 09:00; Stop 01/16/16 at 09:41; Status DC Sennosides (Senna Liq) 8.8 mg BID TUBE Last administered on 02/20/16at 08:32; Start 01/15/16 at 21:00; Stop 02/20/16 at 16:13; Status DC Gadodiamide (Omniscan Pf Inj) 18 ml STK-MED ONCE IV ; Start 01/16/16 at 20:40; Stop 01/16/16 at 20:41; Status DC Sodium Chloride 1,000 ml @ 125 mls/hr Q8H IV Last administered on 01/17/16at 15 :11; Start 01/17/16 at 15:00; Stop 01/17/16 at 17:31; Status DC Ranitidine HCl (Zantac Liq) 150 mg Q24H PO Last administered on 07/28/16t 08:54 ; Start 01/18/16 at 09:00; Stop 07/30/16 at 10:05; Status DC Sodium Chloride 1,000 ml @ 75 mls/hr [id number] IV Last administered on at 05:22; Start 01/17/16 at 18:00; Stop 01/18/16 at 09:28; Status DC Sodium Chloride 38.5 meq/Sterile Water 1,009.625 ml @ 60 mls/hr [id number] IV Last administered on 01/21/16at 22:46; Start 01/18/16 at 11:00; Stop 01/22/16 at 10 :09; Status DC Potassium Chloride (KCl) 40 meq ONCE ONCE PO ; Start 01/18/16 at 09:30; Stop at 09:31; Status DC Potassium Chloride (KCl 40 Meq/30 ml Liq) 40 meq ONCE ONCE TUBE Last administered on 01/18/16at 11:08; Start 01/18/16 at 11:00; Stop 01/18/16 at 11:01 ; Status DC Water (Free Water) 300 ml Q4HR TUBE Last administered on 01/19/16at 08:00; Start 01/18/16 at 12:00; Stop 01/19/16 at 10:43; Status DC Water (Free Water) 400 ml Q4HR TUBE Last administered on 04/16/16at 04:00; Start 01/19/16 at 12:00; Stop 04/16/16 at 09:09; Status DC Potassium Chloride (KCl 40 Meq/30 ml Liq) 40 meq ONCE ONCE NG Last administered on 01/19/16at 11:41; Start 01/19/16 at 11:00; Stop 01/19/16 at 11:01; Status DC Potassium Chloride (KCl 40 Meq/30 ml Liq) 60 meq ONCE ONCE PO/TUBE Last administered on 01/21/16at 13:30; Start 01/21/16 at 11:15; Stop 01/21/16 at 11:27; Status DC Sodium Chloride 1,000 ml @ 30 mls/hr Q24H IV Last administered on 02/06/16 11 :26; Start 01/22/16 at 11:00; Stop 02/07/16 at 14:49; Status DC Warfarin Sodium (Coumadin) 3 mg DAILY@16 PO Last administered on 01/23/16at 17:19 ; Start 01/23/16 at 16:00; Stop 01/24/16 at 14:05; Status DC Warfarin Sodium (Coumadin) 3 mg DAILY@16 PO Last administered on 01/25/16at 15:59 ; Start 01/25/16 at 16:00; Stop 01/26/16 at 15:04; Status DC Warfarin Sodium (Coumadin) 4 mg ONCE@1600 ONCE PO Last administered on at 16:55; Start 01/24/16 at 16:00; Stop 01/24/16 at 16:01; Status DC Warfarin Sodium (Coumadin) 3 mg DAILY@16 PO ; Start 01/27/16 at 16:00; Stop at 16:00; Status DC Warfarin Sodium (Coumadin) 4 mg ONCE@1600 ONCE PO Last administered on at 16:52; Start 01/26/16 at 16:00; Stop 01/26/16 at 16:01; Status DC Potassium Chloride (KCl 40 Meq/30 ml Liq) 80 meq ONCE ONCE PO Last administered on 01/27/16at 07:45; Start 01/27/16 at 07:45; Stop 01/27/16 at 08:10; Status DC Warfarin Sodium (Coumadin) 4 mg DAILY@16 PO Last administered on 02/02/16at 17: 22; Start 01/27/16 at 16:00; Stop 02/03/16 at 11:37; Status DC Acetic Acid (Acetic Acid 0.25% Irr Btl) 10 ml Q8HR IRRIGATION Last administered on 02/05/16at 06:00; Start 01/28/16 at 22:00; Stop 02/05/16 at 15:51 ; Status DC Warfarin Sodium (Coumadin) 3 mg DAILY@1600 PO Last administered on 02/11/16at 17 :34; Start 02/03/16 at 16:00; Stop 02/12/16 at 12:45; Status DC Ceftriaxone Sodium 1000 mg/ Sodium Chloride 100 ml @ 200 mls/hr Q24H IV Last administered on 02/10/16at 05:23; Start 02/05/16 at 06:30; Stop 02/10/16 at 14:32 ; Status DC Acetic Acid (Acetic Acid 0.25% Irr Btl) 10 ml Q8HR IRRIGATION ; Start 02/05/16 at 16:00; Status Cancel Acetic Acid (Acetic Acid 0.25% Irr Btl) 10 ml Q8HR IRRIGATION Last administered on 04/05/17t 13:00; Start 02/05/16 at 16:00 Lactobacillus Acidophilus (Lactinex) 1 tab Q12HR PO Last administered on at 08:25; Start 02/10/16 at 21:00; Stop 02/12/16 at 16:05; Status DC Warfarin Sodium (Coumadin) 4 mg DAILY@1600 PO Last administered on 02/14/16at 15 :56; Start 02/12/16 at 16:00; Stop 02/15/16 at 10:17; Status DC Paroxetine HCl (Paxil Liq) 20 mg DAILY PEG Last administered on 02/25/16at 07:33 ; Start 02/16/16 at 09:00; Stop 02/25/16 at 10:36; Status DC Warfarin Sodium (Coumadin) 3 mg DAILY@1600 PO Last administered on 02/19/16at 16: 42; Start 02/15/16 at 16:00; Stop 02/20/16 at 08:50; Status DC Warfarin Sodium (Coumadin) 4 mg DAILY@16 PO Last administered on 02/21/16at 15:54 ; Start 02/20/16 at 16:00; Stop 02/22/16 at 08:46; Status DC Sennosides (Senna Liq) 8.8 mg DAILY TUBE Last administered on 05/26/16at 08:14 ; Start 02/21/16 at 09:00; Stop 05/27/16 at 11:51; Status DC Albuterol Sulfate (Albuterol Neb) 2.5 mg QID NEB INH Last administered on at 19:51; Start 02/21/16 at 20:00; Stop 02/25/16 at 20:00; Status DC Acetylcysteine (Mucomyst 10% Neb) 1 ml QID NEB NEB Last administered on at 16:32; Start 02/21/16 at 20:00; Stop 02/23/16 at 16:01; Status DC Warfarin Sodium (Coumadin) 3 mg DAILY@16 PO Last administered on 02/22/16at 15:59 ; Start 02/22/16 at 16:00; Stop 02/23/16 at 08:56; Status DC Warfarin Sodium (Coumadin) 3 mg DAILY@16 PO Last administered on 02/28/16at 16: 17; Start 02/24/16 at 16:00; Stop 02/29/16 at 10:04; Status DC Warfarin Sodium (Coumadin) 2 mg ONCE PO Last administered on 02/23/16at 16:22; Start 02/23/16 at 16:00; Stop 02/23/16 at 21:00; Status DC Paroxetine HCl (Paxil Liq) 20 mg DAILY@1900 PEG Last administered on 03/08/16at 18:11; Start 02/26/16 at 19:00; Stop 03/09/16 at 11:31; Status DC Warfarin Sodium (Coumadin) 3 mg DAILY@16 PO Last administered on 03/06/16at 16: 22; Start 03/01/16 at 16:00; Stop 03/09/16 at 10:30; Status DC Warfarin Sodium (Coumadin) 1 mg ONCE PO Last administered on 02/29/16at 17:28; Start 02/29/16 at 16:00; Stop 02/29/16 at 21:00; Status DC Insulin Detemir (Levemir Inj) 27 units HS SQ Last administered on 03/05/16at 20: 25; Start 03/05/16 at 21:00; Stop 03/06/16 at 10:03; Status DC Patient Medication Teaching (Coumadin Booklet) 1 ONCE ONCE XX Last administered on 03/05/16at 16:00; Start 03/05/16 at 16:00; Stop 03/05/16 at 16:01 ; Status DC Insulin Detemir (Levemir Inj) 30 units HS SQ Last administered on 03/21/16at 22: 32; Start 03/06/16 at 21:00; Stop 03/22/16 at 14:48; Status DC Trimethoprim/ Sulfamethoxazole (Bactrim 800-160 Mg/20 ml Liq) 20 ml Q12HR PO Last administered on 03/14/16at 08:01; Start 03/07/16 at 11:15; Stop 03/14/16 at 11:14; Status DC Lorazepam (Ativan Inj) 0.5 mg Q4H PRN IV PUSH seizures or agitation; Start at 23:00; Status Cancel Metronidazole (Flagyl) 500 mg Q8H PO Last administered on 03/14/16at 15:51; Start 03/08/16 at 17:00; Stop 03/14/16 at 23:00; Status DC Warfarin Sodium (Coumadin) 2 mg DAILY@16 PO Last administered on 03/09/16at 17: 20; Start 03/09/16 at 16:00; Stop 03/10/16 at 10:33; Status DC Paroxetine HCl (Paxil) 20 mg DAILY@1900 PEG Last administered on 03/11/16at 17: 55; Start 03/09/16 at 19:00; Stop 03/12/16 at 08:31; Status DC Warfarin Sodium (Coumadin) 3 mg DAILY@16 PO Last administered on 04/12/16at 15: 28; Start 03/10/16 at 16:00; Stop 04/12/16 at 16:39; Status DC Pharmacy Profile Note 0 ml @ 0 mls/hr UNSCH OTHER ; Start 03/10/16 at 14:15; Stop 03/18/16 at 11:33; Status DC Vancomycin HCl 1500 mg/Sodium Chloride 530 ml @ 265 mls/hr Q12H IV Last administered on 03/17/16at 16:26; Start 03/10/16 at 16:00; Stop 03/17/16 at 23:00 ; Status DC Miscellaneous Information SPECIFIC LAB TO BE ELISA... ONCE ONCE XX Last administered on 03/12/16at 04:45; Start 03/12/16 at 03:45; Stop 03/12/16 at 03:46 ; Status DC Metoprolol Tartrate (Lopressor) 75 mg Q8HR PO Last administered on 04/02/16at 13 :13; Start 03/10/16 at 22:00; Stop 04/02/16 at 17:31; Status DC Paroxetine HCl (Paxil Liq) 20 mg DAILY@1900 PEG Last administered on 04/05/17t 17:12; Start 03/12/16 at 19:00; Status Future hold Warfarin Sodium (Coumadin) 1 mg ONCE PO Last administered on 03/21/16at 16:24; Start 03/21/16 at 16:00; Stop 03/21/16 at 21:00; Status DC Warfarin Sodium (Coumadin) 1 mg ONCE PO Last administered on 03/22/16at 17:46; Start 03/22/16 at 16:00; Stop 03/22/16 at 21:00; Status DC Insulin Detemir (Levemir Inj) 32 units HS SQ Last administered on 03/22/16at 20: 18; Start 03/22/16 at 21:00; Stop 03/23/16 at 13:35; Status DC Diltiazem HCl (Cardizem Cd) 120 mg DAILY PO Last administered on 04/14/16at 07: 43; Start 03/22/16 at 16:00; Stop 04/14/16 at 14:39; Status DC Hyoscyamine Sulfate (Levsin Liq) 0.125 mg Q4H PRN PEG INCREASED SECRETIONS Last administered on 04/10/16at 08:05; Start 03/22/16 at 15:15; Stop 04/11/16 at 10:24; Status DC Warfarin Sodium (Coumadin) 2 mg ONCE ONCE PO Last administered on 03/23/16 17: 26; Start 03/23/16 at 16:00; Stop 03/23/16 at 16:01; Status DC Insulin Detemir (Levemir Inj) 34 units HS SQ Last administered on 03/23/16at 20: 01; Start 03/23/16 at 21:00; Stop 03/24/16 at 13:53; Status DC Insulin Detemir (Levemir Inj) 35 units HS SQ Last administered on 11/15/16t 22: 06; Start 03/24/16 at 21:00; Stop 01/09/17 at 15:46; Status DC Insulin Aspart (NovoLOG SUPPLEMENTAL SCALE) 1 ACHS SLIDING SCALE SQ Last administered on 04/16/16at 22:27; Start 03/24/16 at 16:00; Stop 04/19/16 at 17:19 ; Status DC Warfarin Sodium (Coumadin) 1 mg ONCE ONCE PO Last administered on 03/30/16at 16 :59; Start 03/30/16 at 16:00; Stop 03/30/16 at 16:01; Status DC Potassium Chloride (KCl 40 Meq/30 ml Liq) 40 meq ONCE ONCE NG Last administered on 03/31/16at 21:28; Start 03/31/16 at 18:30; Stop 03/31/16 at 18:31 ; Status DC Potassium Bicarb/ Potassium Chloride (K-Lyte Cl Eff) 25 meq ONCE ONCE PEG Last administered on 04/02/16at 12:01; Start 04/02/16 at 13:00; Stop 04/02/16 at 13:01; Status DC Metoprolol Tartrate (Lopressor) 75 mg BID PO Last administered on 05/28/16at 21: 03; Start 04/02/16 at 21:00; Stop 05/29/16 at 11:21; Status DC Potassium Bicarb/ Potassium Chloride (K-Lyte Cl Eff) 25 meq ONCE ONCE PEG Last administered on 04/04/16at 14:40; Start 04/04/16 at 12:30; Stop 04/04/16 at 12:31; Status DC Linezolid (Zyvox) 600 mg Q12HR PO Last administered on 04/16/16at 09:11; Start 04/05/16 at 15:00; Stop 04/16/16 at 12:00; Status DC Artificial Tears (Lacrilube Opht Oint) 1 applic Q12HR EACH EYE Last administered on 09/04/16t 21:00; Start 04/10/16 at 11:00; Stop 09/05/16 at 14:38 ; Status DC Hyoscyamine Sulfate (Levsin) 0.25 mg Q4H PRN G-TUBE INCREASED SECRETIONS Last administered on 03/07/17 06:14; Start 04/11/16 at 10:30; Stop 03/07/17 at 07:56 ; Status DC Diatrizoate Meglum/ Diatrizoate Sod ( Gastroview Liq) 18 ml ONCE ONCE PO Last administered on 04/12/16at 16:45; Start 04/12/16 at 16:15; Stop 04/12/16 at 16:16; Status DC Warfarin Sodium (Coumadin) 3 mg DAILY@16 PO ; Start 04/13/16 at 16:00; Stop 05/27/16 at 11:51; Status DC Iohexol (Omnipaque 350 Inj) 98 ml STK-MED ONCE IV Last administered on at 21:01; Start 04/12/16 at 21:01; Stop 04/12/16 at 21:02; Status DC Diltiazem HCl (Cardizem Cd) 180 mg DAILY PO ; Start 04/15/16 at 09:00; Stop at 08:50; Status DC Ondansetron HCl (Zofran Inj) 4 mg Q6HR PRN IV PUSH nausea/vomiting Last administered on 03/16/17t 16:00; Start 04/14/16 at 19:45 Diltiazem HCl (Cardizem) 60 mg QID PO Last administered on 04/25/16at 17:26; Start 04/15/16 at 13:00; Stop 04/25/16 at 19:06; Status DC Sodium Chloride 500 ml @ 500 mls/hr BOLUS ONCE IV Last administered on at 09:15; Start 04/15/16 at 09:15; Stop 04/15/16 at 10:14; Status DC Potassium Chloride 10 meq/ Dextrose/Sodium Chloride 1,005 ml @ 100 mls/hr Q10H3M IV Last administered on 04/15/16at 21:03; Start 04/15/16 at 11:00; Stop 04/16/16 at 09:09; Status DC Enoxaparin Sodium (Lovenox Inj) 90 mg Q12H SQ Last administered on 04/16/16at 21 :12; Start 04/16/16 at 09:00; Stop 04/17/16 at 10:37; Status DC Water (Free Water) 200 ml Q4HR TUBE Last administered on 12/24/16 08:00; Start 04/16/16 at 12:00; Stop 12/24/16 at 10:34; Status DC Sodium Chloride 1,000 ml @ 84 mls/hr [id number] IV Last administered on at 08:38; Start 04/16/16 at 10:00; Stop 04/20/16 at 12:04; Status DC Ceftriaxone Sodium 2000 mg/ Sodium Chloride 100 ml @ 200 mls/hr Q24H IV Last administered on 05/02/16at 13:19; Start 04/16/16 at 12:00; Stop 05/03/16 at 12: 06; Status DC Acetaminophen/ Hydrocodone Bitart (Plover 5-325 Mg) 1 tab Q6HR PEG Last administered on 09/17/16t 06:42; Start 04/18/16 at 18:00; Stop 09/17/16 at 09:17 ; Status DC Lactulose (Lactulose Liq) 30 ml NOW ONCE PEG Last administered on 04/19/16at 17 :21; Start 04/19/16 at 17:30; Stop 04/19/16 at 17:31; Status DC Lactulose (Lactulose Liq) 30 ml DAILY PEG Last administered on 05/26/16at 08:14 ; Start 04/20/16 at 09:00; Stop 05/27/16 at 11:39; Status DC Potassium Bicarb/ Potassium Chloride (K-Lyte Cl Eff) 50 meq ONCE ONCE PO Last administered on 04/20/16at 05:52; Start 04/20/16 at 05:45; Stop 04/20/16 at 05:46; Status DC Furosemide (Lasix Inj) 20 mg ONCE ONCE IV PUSH Last administered on 04/20/16at 17:35; Start 04/20/16 at 12:00; Stop 04/20/16 at 12:06; Status DC Insulin Aspart (NovoLOG SUPPLEMENTAL SCALE) 1 ACHS SLIDING SCALE SQ Last administered on 06/02/16at 12:10; Start 04/20/16 at 16:00; Stop 06/02/16 at 21: 44; Status DC Dextrose (D50w (Vial) Inj) 25 ml UNSCH PRN IV HYPOGLYCEMIA-SEE COMMENTS; Start 04/20/16 at 12:00; Stop 01/09/17 at 15:52; Status DC Glucagon (Glucagon Inj) 1 mg UNSCH PRN IM/SQ HYPOGLYCEMIA-SEE COMMENTS; Start 04/20/16 at 12:00; Stop 01/09/17 at 15:52; Status DC Lactobacillus Acidophilus (Lactinex) 1 tab Q12HR PEG Last administered on 06/06at 21:34; Start 04/22/16 at 09:00; Stop 06/07/16 at 09:32; Status DC Furosemide (Lasix Inj) 20 mg Q12H IV PUSH Last administered on 04/24/16at 08:52 ; Start 04/22/16 at 09:00; Stop 04/24/16 at 09:25; Status DC Potassium Bicarb/ Potassium Chloride (K-Lyte Cl Eff) 25 meq Q12HR TUBE Last administered on 05/27/16at 08:17; Start 04/22/16 at 09:00; Stop 05/27/16 at 11:51 ; Status DC Albumin Human (Albumin 25% Inj) 12.5 gm Q12H IV Last administered on 04/24/16at 08:46; Start 04/22/16 at 09:00; Stop 04/24/16 at 09:25; Status DC Furosemide (Lasix Inj) 20 mg DAILY IV PUSH Last administered on 05/08/16at 09: 01; Start 04/25/16 at 09:00; Stop 05/08/16 at 11:06; Status DC Albumin Human (Albumin 25% Inj) 12.5 gm DAILY IV Last administered on at 09:02; Start 04/25/16 at 10:00; Stop 05/08/16 at 11:06; Status DC Furosemide (Lasix Inj) 40 mg ONCE ONCE IV PUSH Last administered on 04/25/16at 18:15; Start 04/25/16 at 18:15; Stop 04/25/16 at 18:16; Status DC Albuterol/ Ipratropium (Duoneb Neb) 1 ampule Q6HR NEB NEB Last administered on 04/27/16at 15:52; Start 04/25/16 at 18:30; Stop 04/27/16 at 19:45; Status DC Ipratropium [place] (Atrovent Neb) 0.5 mg Q6HR NEB NEB Last administered on at 16:51; Start 04/25/16 at 22:00; Stop 04/27/16 at 16:44; Status DC Levalbuterol HCl (Xopenex Neb) 0.31 mg Q4HR NEB NEB Last administered on at 23:48; Start 04/25/16 at 20:00; Stop 04/27/16 at 16:43; Status DC Levalbuterol HCl (Xopenex Neb) 0.31 mg Q2HR NEB PRN NEB SHORTNESS OF BREATH; Start 04/25/16 at 18:45; Stop 04/28/16 at 10:50; Status DC Diltiazem HCl (Cardizem) 90 mg QID PEG Last administered on 07/17/16at 09:27; Start 04/25/16 at 21:00; Stop 07/17/16 at 17:52; Status DC Diltiazem HCl (Cardizem) 30 mg NOW ONCE PEG Last administered on 04/25/16at 21: 36; Start 04/25/16 at 19:15; Stop 04/25/16 at 19:16; Status DC Levalbuterol HCl (Xopenex Neb) 0.31 mg Q8HR NEB NEB ; Start 04/28/16 at 00:00; Stop 04/28/16 at 10:50; Status DC Levalbuterol HCl (Xopenex Neb) 0.63 mg Q4HR NEB PRN NEB SHORTNESS OF BREATH Last administered on 05/04/16at 15:26; Start 04/28/16 at 11:00; Stop 05/04/16 at 00:51; Status DC Levalbuterol HCl (Xopenex Neb) 0.63 mg Q8HR NEB NEB Last administered on 05/04at 00:07; Start 04/28/16 at 16:00; Stop 05/04/16 at 00:50; Status DC Polyethylene Glycol/ Electrolytes (Colyte Liq) 4,000 ml ONCE ONCE PO Last administered on 05/05/16at 08:10; Start 05/05/16 at 08:45; Stop 05/05/16 at 08 :46; Status DC Cefazolin Sodium/ Dextrose 50 ml @ 100 mls/hr ONCE ONCE IV ; Start 05/06/16 at 14:00; Stop 05/06/16 at 14:29; Status DC Metronidazole 100 ml @ 100 mls/hr ONCE ONCE IV Last administered on at 14:00; Start 05/06/16 at 14:00; Stop 05/06/16 at 14:59; Status DC Ceftriaxone Sodium 2000 mg/ Sodium Chloride 100 ml @ 200 mls/hr Q24H IV Last administered on 06/09/16at 12:36; Start 05/03/16 at 12:00; Stop 06/10/16 at 12 :48; Status DC Levalbuterol HCl (Xopenex Neb) 0.63 mg Q8HR NEB NEB Last administered on 05/05at 08:00; Start 05/04/16 at 00:49; Stop 05/05/16 at 08:07; Status DC Levalbuterol HCl (Xopenex Neb) 0.63 mg Q4HR NEB PRN NEB SHORTNESS OF BREATH Last administered on 03/30/17 21:58; Start 05/05/16 at 12:00 Levalbuterol HCl (Xopenex Neb) 0.63 mg Q8HR NEB NEB Last administered on 05/08at 23:56; Start 05/05/16 at 08:15; Stop 05/09/16 at 08:15; Status DC Potassium Bicarb/ Potassium Chloride (K-Lyte Cl Eff) 25 meq DAILY TUBE Last administered on 01/09/17 08:12; Start 05/28/16 at 09:00; Stop 01/09/17 at 15:46 ; Status DC Aspirin (Aspirin) 325 mg DAILY TUBE Last administered on 04/05/17 07:54; Start 05/27/16 at 11:40; Status Future hold Docusate Sodium (Colace Liq) 100 mg DAILY PRN PO constipation Last administered on 08/16/16 21:09; Start 05/27/16 at 11:45; Stop 08/31/16 at 09:00 ; Status DC Metoprolol Tartrate (Lopressor) 50 mg BID PO Last administered on 08/23/16 09: 03; Start 05/29/16 at 21:00; Stop 08/23/16 at 15:33; Status DC Acetaminophen/ Hydrocodone Bitart (Plover 5-325 Mg) 1 tab Q6H PRN TUBE BREAKTHROUGH PAIN Last administered on 08/02/16 15:11; Start 06/03/16 at 03:00 ; Stop 09/17/16 at 14:33; Status DC Insulin Aspart (NovoLOG SUPPLEMENTAL SCALE) 1 ACHS SLIDING SCALE SQ Last administered on 06/06/16at 21:35; Start 06/03/16 at 07:00; Stop 06/07/16 at 12 :24; Status DC Lactobacillus Acidophilus (Lactinex) 1 tab TID PEG Last administered on 09:13; Start 06/07/16 at 13:00; Stop 10/13/16 at 12:08; Status DC Insulin Aspart (NovoLOG SUPPLEMENTAL SCALE) 1 AC BREAKFAST SQ Last administered on 01/08/17 06:49; Start 06/08/16 at 07:00; Stop 01/09/17 at 15: 46; Status DC Ceftriaxone Sodium 2000 mg/ Sodium Chloride 100 ml @ 200 mls/hr Q24H IV Last administered on 07/28/16 12:19; Start 06/10/16 at 12:00; Stop 07/29/16 at 13:30 ; Status DC Heparin Sodium (Porcine) (Heparin Inj) 5,000 units Q12HR SQ Last administered on 06/11/16at 00:58; Start 06/10/16 at 14:15; Stop 06/11/16 at 06:21; Status DC Heparin Sodium (Porcine) (Heparin Inj) 5,000 units Q8HR SQ Last administered on 03/22/17 14:43; Start 06/11/16 at 14:00; Stop 03/22/17 at 18:52; Status DC Diltiazem HCl (Cardizem) 30 mg QID PEG Last administered on 08/16/16 08:31; Start 07/17/16 at 18:00; Stop 08/16/16 at 12:06; Status DC Bacitracin (Baciguent Oint) 1 applic BID TOP Last administered on 04/04/17 21: 40; Start 07/20/16 at 10:00 Lactated Ringer's 1,000 ml @ 30 mls/hr Q24H IV ; Start 07/21/16 at 17:45; Stop 08/14/16 at 12:08; Status DC Sodium Chloride 500 ml @ 30 mls/hr [id number] IV ; Start 07/21/16 at 17:45; Stop at 17:44; Status DC Insulin Human Regular (NovoLIN R INJ) See Protocol Table ... UNSCH X1 PRN SQ SEE PROTOCOL; Start 07/21/16 at 17:45; Stop 07/22/16 at 17:44; Status DC Metoprolol Tartrate (Lopressor) 25 mg UNSCH X1 PRN PO SEE LABEL COMMENTS; Start 07/21/16 at 17:45; Stop 07/22/16 at 17:44; Status DC Lidocaine/ Epinephrine (Xylocaine-Epi 1%-1:100,000 Inj) 40 ml STK-MED ONCE .ROUTE Last administered on 07/22/16 10:56; Start 07/22/16 at 10:04; Stop at 10:05; Status DC Ketamine HCl (Ketalar Inj) 500 mg STK-MED ONCE .ROUTE ; Start 07/22/16 at 10:50; Stop 07/22/16 at 10:51; Status DC Propofol (Diprivan 200 Mg/20 ml Inj) 600 mg STK-MED ONCE IV ; Start 07/22/16 at 12:00; Stop 07/23/16 at 14:36; Status DC Dextrose 1,000 ml @ 40 mls/hr Q24H ONCE IV Last administered on 07/28/16 14:33 ; Start 07/28/16 at 14:00; Stop 07/29/16 at 13:59; Status DC Ampicillin Sodium/ Sulbactam Sodium 3 gm/Sodium Chloride 100 ml @ 200 mls/hr Q6H IV Last administered on 08/01/16 12:30; Start 07/29/16 at 14:00; Stop 08/01 at 14:13; Status DC Ondansetron HCl (Zofran Inj) 4 mg ONCE ONCE IV PUSH Last administered on 02:46; Start 07/30/16 at 00:30; Stop 07/30/16 at 00:33; Status DC Lactated Ringer's 1,000 ml @ 30 mls/hr Q24H IV ; Start 07/30/16 at 06:00; Stop 08/14/16 at 12:09; Status DC Sodium Chloride 500 ml @ 30 mls/hr [id number] IV ; Start 07/30/16 at 06:00; Stop 07/31/16 at 05:59; Status DC Pantoprazole Sodium (Protonix Inj) 40 mg Q12H IV PUSH Last administered on 12:01; Start 07/30/16 at 10:15; Stop 01/26/17 at 18:02; Status DC Propofol (Diprivan 200 Mg/20 ml Inj) 200 mg STK-MED ONCE IV ; Start 07/30/16 at 09:41; Stop 07/30/16 at 10:19; Status DC Piperacillin Sod/ Tazobactam Sod 100 ml @ 200 mls/hr Q6H IV Last administered on 08/07/16 09:37; Start 08/01/16 at 16:00; Stop 08/07/16 at 16:10; Status DC Linezolid (Zyvox) 600 mg Q12HR PO Last administered on 08/22/16 09:10; Start at 21:00; Stop 08/22/16 at 15:55; Status DC Sodium Chloride ([place]) 1 spray BID NASAL Last administered on 21:44; Start 08/01/16 at 21:00 Metronidazole (Flagyl) 500 mg Q8H PO Last administered on 08/08/16 08:28; Start 08/07/16 at 16:00; Stop 08/08/16 at 16:10; Status DC Sodium Chloride 1,000 ml @ 42 mls/hr [id number] IV Last administered on 12:44; Start 08/14/16 at 12:00; Stop 08/15/16 at 10:56; Status DC Fentanyl Citrate (fentaNYL INJ) 250 mcg STK-MED ONCE .ROUTE Last administered on 08/14/16 15:36; Start 08/14/16 at 15:36; Stop 08/14/16 at 15:37; Status DC Iohexol (Omnipaque 350 Inj) 30 ml STK-MED ONCE G-TUBE Last administered on 08/14 15:45; Start 08/14/16 at 15:52; Stop 08/14/16 at 15:53; Status DC Diltiazem HCl (Cardizem) 30 mg QID PEG Last administered on 11/19/16 07:52; Start 08/16/16 at 13:00; Stop 11/19/16 at 17:31; Status DC Polyethylene Glycol (Miralax) 17 gm ONCE ONCE PEG Last administered on 11:32; Start 08/17/16 at 12:00; Stop 08/17/16 at 12:01; Status DC Amoxicillin (Trimox) 500 mg Q8HR PO Last administered on 11/19/16 13:20; Start 08/22/16 at 22:00; Stop 11/19/16 at 22:41; Status DC Cefepime HCl 1000 mg/Sodium Chloride 100 ml @ 200 mls/hr Q8H IV Last administered on 09/03/16 10:46; Start 08/23/16 at 16:00; Stop 09/03/16 at 15:02 ; Status DC Metoprolol Tartrate (Lopressor) 75 mg BID PO Last administered on 09/13/16 08: 42; Start 08/23/16 at 21:00; Stop 09/13/16 at 13:09; Status DC Docusate Sodium (Colace Liq) 100 mg BID PO Last administered on 12/25/16 09:20 ; Start 08/30/16 at 21:00; Stop 12/25/16 at 13:12; Status DC Sennosides (Senokot) 17.2 mg DAILY PO Last administered on 09/25/16 08:36; Start 08/30/16 at 14:00; Stop 09/25/16 at 16:09; Status DC Lactulose (Lactulose Liq) 30 ml DAILY PO Last administered on 11/20/16 08:03; Start 09/02/16 at 15:30; Stop 12/27/16 at 15:28; Status DC Artificial Tears (Tears Naturale Opth Soln) 1 drop BID EACH EYE Last administered on 04/04/17 21:44; Start 09/05/16 at 21:00 Midazolam HCl (Versed Inj) 2 mg STK-MED ONCE .ROUTE Last administered on 11:37; Start 09/09/16 at 11:37; Stop 09/09/16 at 11:38; Status DC Fentanyl Citrate (fentaNYL INJ) 100 mcg STK-MED ONCE .ROUTE Last administered on 09/09/16 11:38; Start 09/09/16 at 11:38; Stop 09/09/16 at 11:39; Status DC Iohexol (Omnipaque 350 Inj) 20 ml STK-MED ONCE G-TUBE Last administered on 09/09 11:50; Start 09/09/16 at 11:50; Stop 09/09/16 at 12:15; Status DC Metoprolol Tartrate (Lopressor) 50 mg BID PO Last administered on 11/19/16 07: 52; Start 09/13/16 at 21:00; Stop 11/19/16 at 17:31; Status DC Acetaminophen/ Hydrocodone Bitart (Plover 5-325 Mg) 1 tab Q6H PEG ; Start at 11:00; Stop 09/17/16 at 14:25; Status DC Acetaminophen/ Hydrocodone Bitart (Plover 5-325 Mg) 1 tab DAILY@1600 PO ; Start 09/17/16 at 16:00; Stop 09/17/16 at 16:00; Status DC Morphine Sulfate (Morphine Inj) 1 mg Q24H PRN IV PUSH dressing change 30 min before Last administered on 10/22/16 02:00; Start 09/17/16 at 14:30 Acetaminophen/ Hydrocodone Bitart (Plover 5-325 Mg) 1 tab DAILY@0000 PO Last administered on 09/17/16 23:43; Start 09/18/16 at 00:00; Stop 09/20/16 at 12:46; Status DC Acetaminophen/ Hydrocodone Bitart (Plover 5-325 Mg) 1 tab Q8H PO Last administered on 10/13/16 13:38; Start 09/20/16 at 13:00; Stop 10/13/16 at 18:29 ; Status DC Ketoconazole (Nizoral 2% Cream) 1 applic Q12HR TOPICAL Last administered on 21:00; Start 09/24/16 at 21:00; Stop 01/02/17 at 13:03; Status DC Sennosides (Senna Liq) 8.8 mg DAILY@1600 PO Last administered on 11/12/16 16: 45; Start 09/25/16 at 17:00; Stop 12/27/16 at 15:28; Status DC Sodium Biphosphate/ Sodium Phosphate (Fleets Enema (Adult)) 133 ml UNSCH PRN [place] CONSTIPATION; Start 09/25/16 at 16:00; Status Cancel Bisacodyl (Dulcolax Supp) 10 mg DAILY PRN RECTAL SEVERE CONSTIPATION IF NOT PO Last administered on 12/08/16 09:17; Start 09/26/16 at 15:30 Bisacodyl (Dulcolax Supp) 10 mg ONCE ONCE RECTAL Last administered on 16:10; Start 09/26/16 at 15:30; Stop 09/26/16 at 15:31; Status DC Cyclobenzaprine HCl (Flexeril) 5 mg Q8H PO Last administered on 10/13/16 13:37 ; Start 10/13/16 at 12:15; Stop 10/13/16 at 18:27; Status DC Magnesium Hydroxide (Milk Of Magnesia Liq) 30 ml DAILY PRN PO constipation Last administered on 12/19/16 12:33; Start 10/13/16 at 14:30; Stop 12/27/16 at 15 :28; Status DC Acetaminophen/ Hydrocodone Bitart (Plover 5-325 Mg) 1 tab Q6H PRN PO PAIN SCALE 1 TO 10; Start 10/13/16 at 18:30; Stop 10/13/16 at 18:30; Status DC Acetaminophen/ Hydrocodone Bitart (Plover 5-325 Mg) 1 tab Q6H PRN PO PAIN SCALE 1 TO 10 Last administered on 12/22/16 18:42; Start 10/13/16 at 18:45; Stop 12/27/16 at 15:28; Status DC Cyclobenzaprine HCl (Flexeril) 5 mg HS PRN PO muscle relaxant Last administered on 10/22/16 21:17; Start 10/14/16 at 14:15; Stop 12/27/16 at 15:28; Status DC Fentanyl Citrate (fentaNYL INJ) 100 mcg STK-MED ONCE .ROUTE ; Start 10/23/16 at 16:51; Stop 10/23/16 at 16:52; Status DC Glycerin (Glycerin Adult Supp) 2 gm ONCE ONCE RECTAL Last administered on 15:29; Start 10/26/16 at 15:00; Stop 10/26/16 at 15:01; Status DC Nitrofurantoin Macrocrystals (Macrobid) 100 mg BIDPC PO Last administered on 09:36; Start 10/26/16 at 15:00; Stop 10/29/16 at 14:59; Status DC Sodium Chloride 1,000 ml @ 30 mls/hr Q24H IV Last administered on 11/28/16 06 :30; Start 11/17/16 at 14:15; Stop 11/28/16 at 19:38; Status DC Piperacillin Sod/ Tazobactam Sod 50 ml @ 100 mls/hr Q6H IV Last administered on 11/21/16 16:25; Start 11/17/16 at 16:00; Stop 11/21/16 at 16:38; Status DC Sodium Chloride 1,000 ml @ 999 mls/hr BOLUS ONCE IV ; Start 11/18/16 at 10:45; Stop 11/18/16 at 11:45; Status DC Iohexol (Omnipaque 350 Inj) 20 ml STK-MED ONCE G-TUBE ; Start 11/18/16 at 18:06; Stop 11/18/16 at 18:07; Status DC Diltiazem HCl (Cardizem) 30 mg Q12H PEG Last administered on 01/09/17 02:04; Start 11/20/16 at 01:00; Stop 01/09/17 at 15:45; Status DC Metoprolol Tartrate (Lopressor) 25 mg BID PO Last administered on 12/26/16 20: 34; Start 11/19/16 at 21:00; Stop 12/27/16 at 15:28; Status DC Loperamide HCl (Imodium Liq) 2 mg UNSCH PRN PO DIARRHEA; Start 11/20/16 at 15:30 ; Stop 11/20/16 at 15:30; Status DC Loperamide HCl (Imodium Liq) 2 mg Q6H PRN PO DIARRHEA Last administered on 02:04; Start 11/20/16 at 15:30; Stop 12/27/16 at 15:28; Status DC Aztreonam 2000 mg/ Sodium Chloride 100 ml @ 200 mls/hr Q6H IV Last administered on 11/28/16 12:25; Start 11/21/16 at 18:00; Stop 11/28/16 at 17:01 ; Status DC Acetylcysteine (Mucomyst 10% Neb) 2 ml Q6HR NEB PRN NEB Mucolysis Last administered on 11/23/16 10:08; Start 11/22/16 at 16:15; Stop 11/23/16 at 18:00; Status DC Acetylcysteine (Mucomyst 10% Neb) 2 ml Q8HR NEB NEB Last administered on 08:00; Start 11/23/16 at 18:00; Stop 11/27/16 at 18:00; Status DC Sodium Chloride 1,000 ml @ 125 mls/hr Q8H IV Last administered on 01/11/17 03 :35; Start 11/28/16 at 19:45; Stop 01/11/17 at 08:39; Status DC Acetylcysteine (Mucomyst 10% Neb) 2 ml Q4HR NEB PRN NEB Thick secretions. ; Start 11/28/16 at 23:30; Stop 12/02/16 at 23:30; Status DC Iodixanol (VISIPAQUE 320 INJ (Rad Spec)) 10 ml STK-MED ONCE J-TUBE Last administered on 12/04/16 18:12; Start 12/04/16 at 18:12; Stop 12/04/16 at 18:13 ; Status DC Iohexol (Omnipaque 350 Inj) 15 ml STK-MED ONCE .XX Last administered on 16:25; Start 12/20/16 at 16:25; Stop 12/20/16 at 16:26; Status DC Water (Free Water) 150 ml Q6HR TUBE Last administered on 01/01/17 05:06; Start 12/24/16 at 12:00; Stop 01/01/17 at 10:23; Status DC Magnesium Hydroxide (Milk Of Magnesia Liq) 30 ml DAILY PO Last administered on 12/26/16 09:08; Start 12/26/16 at 09:00; Stop 12/27/16 at 15:28; Status DC Acetaminophen/ Codeine Phosphate (Tylenol - Codeine 120-12 Liq) 5 ml Q4H PRN G- TUBE pain 2-10 Last administered on 03/31/17 05:50; Start 12/27/16 at 15:30 Cyclobenzaprine HCl (Flexeril) 5 mg HS PRN PEG muscle relaxant ; Start 12/27/16 at 15:30; Stop 02/13/17 at 08:51; Status DC Lactulose (Lactulose Liq) 30 ml DAILY PEG Last administered on 01/28/17 07:57 ; Start 12/28/16 at 09:00; Stop 01/29/17 at 17:48; Status DC Loperamide HCl (Imodium Liq) 2 mg Q6H PRN PEG DIARRHEA Last administered on 08:29; Start 12/27/16 at 15:30 Magnesium Hydroxide (Milk Of Magnesia Liq) 30 ml DAILY PRN PEG mild-moderate constipation Last administered on 02/11/17 08:46; Start 12/27/16 at 15:30 Magnesium Hydroxide (Milk Of Magnesia Liq) 30 ml DAILY PEG Last administered on 01/19/17 08:44; Start 12/28/16 at 09:00; Status Future Hold Metoprolol Tartrate (Lopressor) 25 mg BID PEG Last administered on 01/09/17 08 :13; Start 12/27/16 at 21:00; Stop 01/09/17 at 15:57; Status DC Sennosides (Senna Liq) 8.8 mg DAILY@1600 PEG Last administered on 03/24/17 17: 13; Start 12/27/16 at 16:00; Status Future Hold Lactulose (Lactulose Liq) 30 ml DAILY PRN PEG severe constipation ; Start at 15:30 Iohexol (Omnipaque 350 Inj) 15 ml STK-MED ONCE G-TUBE Last administered on 12/31 16:40; Start 12/31/16 at 16:50; Stop 12/31/16 at 16:51; Status DC Water (Free Water) 200 ml Q6HR TUBE Last administered on 01/09/17 12:00; Start 01/01/17 at 12:00; Stop 01/09/17 at 15:46; Status DC Propofol 100 ml @ As Directed STK-MED ONCE .ROUTE ; Start 01/09/17 at 15:06; Stop 01/09/17 at 15:07; Status DC Diltiazem HCl (Cardizem Inj) 25 mg STK-MED ONCE .ROUTE ; Start 01/09/17 at 15:39 ; Stop 01/09/17 at 15:40; Status DC Diltiazem HCl (Cardizem) 30 mg QID PEG Last administered on 03/28/17 12:52; Start 01/09/17 at 18:00; Stop 03/28/17 at 14:04; Status DC Diltiazem HCl (Cardizem Inj) 10 mg ONCE ONCE IV Last administered on 16:00; Start 01/09/17 at 16:00; Stop 01/09/17 at 16:01; Status DC Albuterol/ Ipratropium (Duoneb Neb) 1 ampule Q6HR NEB NEB Last administered on 01/13/17 15:12; Start 01/09/17 at 16:00; Stop 01/13/17 at 16:00; Status DC Dextrose (D50w (Vial) Inj) 50 ml UNSCH PRN IV HYPOGLYCEMIA-SEE COMMENTS; Start 01/09/17 at 16:00; Stop 03/28/17 at 14:08; Status DC Glucagon (Glucagon Inj) 1 mg UNSCH PRN OTHER HYPOGLYCEMIA-SEE COMMENTS; Start 01/09/17 at 16:00; Stop 03/28/17 at 14:08; Status DC Insulin Human Regular (NovoLIN R SUPPLEMENTAL SCALE) 1 Q6H SQ Last administered on 01/25/17 16:00; Start 01/09/17 at 16:00; Stop 01/26/17 at 18:01; Status DC Potassium Chloride 100 ml @ 50 mls/hr Q2H PRN IV For Potassium 2.8 - 3.2 mEq/L ; Start 01/09/17 at 16:00; Stop 01/28/17 at 11:54; Status DC Potassium Chloride 100 ml @ 50 mls/hr Q2H PRN IV For Potassium 2.8 - 3.2 mEq/L ; Start 01/09/17 at 16:00; Stop 01/28/17 at 11:54; Status DC Potassium Bicarb/ Potassium Chloride (K-Lyte Cl Eff) 50 meq UNSCH PRN PO For Potassium 3.3 - 3.5 mEq/L; Start 01/09/17 at 16:00; Stop 01/28/17 at 11:54; Status DC Potassium Chloride 100 ml @ 25 mls/hr UNSCH PRN IV For Potassium 3.3 - 3.5 mEq /L; Start 01/09/17 at 16:00; Stop 01/28/17 at 11:54; Status DC Potassium Chloride 100 ml @ 50 mls/hr Q2H PRN IV For Potassium 3.3 - 3.5 mEq/L ; Start 01/09/17 at 16:00; Stop 01/28/17 at 11:54; Status DC Magnesium Sulfate 4 gm/Sodium Chloride 100 ml @ 50 mls/hr UNSCH PRN IV For Magnesium 0.9 - 1.1 mg/dL; Start 01/09/17 at 16:00; Stop 01/28/17 at 11:54; Status DC Magnesium Oxide (Mag-Ox) 800 mg UNSCH PRN PO For Magnesium 1.2 - 1.6 mg/dL; Start 01/09/17 at 16:00; Stop 01/28/17 at 11:54; Status DC Magnesium Sulfate 2 gm/Sodium Chloride 100 ml @ 50 mls/hr UNSCH PRN IV For Magnesium 1.2 - 1.6 mg/dL; Start 01/09/17 at 16:00; Stop 01/28/17 at 11:54; Status DC Potassium Phosphate (K-Phos) 2,000 mg Q4H PRN PO For Phosphorus < 2.5 mg/dL; Start 01/09/17 at 16:00; Stop 01/28/17 at 11:54; Status DC Sodium Phosphate 30 mmol/Sodium Chloride 250 ml @ 42 mls/hr UNSCH PRN IV For Phosphorus < 2.5 mg/dL Last administered on 01/20/17 06:00; Start 01/09/17 at 16 :00; Stop 01/28/17 at 11:54; Status DC Potassium Phosphate (K-Phos) 2,000 mg UNSCH PRN PO/TUBE SEE LABEL COMMENTS; Start 01/09/17 at 16:00; Stop 01/28/17 at 11:54; Status DC Potassium Phosphate 30 mmol/ Sodium Chloride 260 ml @ 42 mls/hr UNSCH PRN IV SEE LABEL COMMENTS Last administered on 01/13/17 10:15; Start 01/09/17 at 16:00 ; Stop 01/28/17 at 11:54; Status DC Cefepime HCl 1000 mg/Sodium Chloride 100 ml @ 200 mls/hr Q8H IV Last administered on 01/13/17 15:20; Start 01/09/17 at 16:00; Stop 01/13/17 at 15:24 ; Status DC Vancomycin HCl 1000 mg/Sodium Chloride 250 ml @ 250 mls/hr Q12H IV ; Start at 16:00; Stop 01/09/17 at 16:22; Status DC Pharmacy Profile Note 0 ml @ 0 mls/hr UNSCH OTHER ; Start 01/09/17 at 16:00; Stop 01/13/17 at 10:54; Status DC Sodium Chloride 1,000 ml @ 999 mls/hr BOLUS ONCE IV Last administered on 01/09 16:15; Start 01/09/17 at 16:15; Stop 01/09/17 at 17:15; Status DC Vancomycin HCl 1250 mg/Sodium Chloride 262.5 ml @ 262.5 mls/ hr Q12H IV Last administered on 01/11/17 18:50; Start 01/09/17 at 18:00; Stop 01/11/17 at 19:03 ; Status DC Miscellaneous Information SPECIFIC LAB TO BE ELISA... ONCE ONCE .XX Last administered on 01/11/17 05:45; Start 01/11/17 at 05:45; Stop 01/11/17 at 05:46 ; Status DC Propofol 100 ml @ As Directed STK-MED ONCE .ROUTE Last administered on 17:18; Start 01/09/17 at 17:18; Stop 01/09/17 at 17:19; Status DC Iohexol (Omnipaque 350 Inj) 75 ml STK-MED ONCE IV Last administered on 18:11; Start 01/09/17 at 18:11; Stop 01/09/17 at 18:12; Status DC Propofol 100 ml @ 0 mls/hr TITRATE IV Last administered on 01/10/17 01:23; Start 01/09/17 at 21:00; Stop 01/10/17 at 07:23; Status DC Metronidazole 100 ml @ 100 mls/hr Q8H IV Last administered on 01/15/17 07:36 ; Start 01/10/17 at 01:00; Stop 01/15/17 at 15:03; Status DC Micafungin Sodium 150 mg/Sodium Chloride 100 ml @ 100 mls/hr Q24H IV Last administered on 01/13/17 02:40; Start 01/10/17 at 02:00; Stop 01/13/17 at 10:54 ; Status DC Sodium Chloride 1,000 ml @ 999 mls/hr BOLUS ONCE IV Last administered on 01/10 08:39; Start 01/10/17 at 07:30; Stop 01/10/17 at 08:30; Status DC Fentanyl Citrate 250 ml @ 0 mls/hr TITRATE IV Last administered on 01/10/17 08 :36; Start 01/10/17 at 07:30; Stop 01/20/17 at 07:02; Status DC Miscellaneous Information SPECIFIC LAB TO BE DRAWN:VANCO TROUGHRESCHEDU... ONCE ONCE .XX Last administered on 01/11/17 17:00; Start 01/11/17 at 17:45; Stop 01/11/17 at 17:46; Status DC Vancomycin HCl 1600 mg/Sodium Chloride 516 ml @ 250 mls/hr Q8H IV Last administered on 01/13/17 00:31; Start 01/12/17 at 00:00; Stop 01/13/17 at 10:55 ; Status DC Miscellaneous Information SPECIFIC LAB TO BE DRAWN:VANCO TROUGH DATE TO BE DR... ONCE ONCE .XX Last administered on 01/12/17 15:45; Start 01/12/17 at 15 :45; Stop 01/12/17 at 15:46; Status DC Etomidate (Amidate Inj) 20 mg STK-MED ONCE .ROUTE ; Start 01/13/17 at 07:34; Stop 01/13/17 at 07:35; Status DC Succinylcholine Chloride (Quelicin Inj) 200 mg STK-MED ONCE .ROUTE ; Start 01/13 at 07:34; Stop 01/13/17 at 07:35; Status DC Propofol 50 ml @ As Directed STK-MED ONCE .ROUTE ; Start 01/13/17 at 07:35; Stop 01/13/17 at 07:36; Status DC Cefepime HCl 2000 mg/Sodium Chloride 100 ml @ 200 mls/hr Q8H IV Last administered on 01/20/17 12:28; Start 01/13/17 at 20:00; Stop 01/20/17 at 16:55; Status DC Etomidate (Amidate Inj) 20 mg STK-MED ONCE .ROUTE ; Start 01/15/17 at 07:45; Stop 01/15/17 at 07:46; Status DC Succinylcholine Chloride (Quelicin Inj) 200 mg STK-MED ONCE .ROUTE ; Start 01/15 at 07:45; Stop 01/15/17 at 07:46; Status DC Piperacillin Sod/ Tazobactam Sod 100 ml @ 200 mls/hr Q6H IV Last administered on 01/27/17 05:07; Start 01/20/17 at 17:00; Stop 01/27/17 at 09:00; Status DC Sodium Chloride 1,000 ml @ 42 mls/hr [id number] IV Last administered on 01/25/17 11:53; Start 01/23/17 at 12:15; Stop 01/25/17 at 15:41; Status DC Iohexol (Omnipaque 350 Inj) 20 ml STK-MED ONCE .XX Last administered on 17:57; Start 01/24/17 at 17:57; Stop 01/24/17 at 17:58; Status DC Insulin Human Regular (NovoLIN R SUPPLEMENTAL SCALE) 1 Q6H SQ Last administered on 01/29/17 16:00; Start 01/26/17 at 22:00; Stop 01/30/17 at 09:47 ; Status DC Lansoprazole (Prevacid Odt) 30 mg BID NG Last administered on 04/05/17 07:53; Start 01/26/17 at 21:00 Lactobacillus Acidophilus (Lactinex Pkt) 1 gm TID G-TUBE Last administered on 08:05; Start 01/28/17 at 13:00; Stop 02/10/17 at 13:02; Status DC Arginine HCl (Ashish Powder) 1 pack BID G-TUBE Last administered on 03/19/17 09 :00; Start 02/10/17 at 21:00; Stop 03/19/17 at 15:18; Status DC Ferrous Sulfate (Ferrous Sulfate Liq) 300 mg DAILY PO Last administered on 04/05 08:01; Start 02/14/17 at 09:00 Ascorbic Acid (Vitamin C) 1,000 mg DAILY PO Last administered on 04/05/17 07: 54; Start 02/14/17 at 09:00 Iohexol (Omnipaque 350 Inj) 10 ml STK-MED ONCE G-TUBE Last administered on 03/10 21:07; Start 02/14/17 at 19:37; Stop 02/14/17 at 19:38; Status DC Sodium Chloride 500 ml @ 500 mls/hr BOLUS ONCE IV Last administered on 11:31; Start 02/18/17 at 10:45; Stop 02/18/17 at 11:44; Status DC Hyoscyamine Sulfate (Levsin) 0.25 mg BID PO Last administered on 02/25/17 08:27 ; Start 02/22/17 at 21:00; Stop 02/25/17 at 20:59; Status DC Ceftriaxone Sodium 1000 mg/ Sodium Chloride 100 ml @ 200 mls/hr Q24H IV Last administered on 02/23/17 21:15; Start 02/22/17 at 20:00; Stop 02/24/17 at 16:11; Status DC Cefepime HCl 1000 mg/Sodium Chloride 100 ml @ 200 mls/hr Q8H IV Last administered on 02/26/17 08:31; Start 02/24/17 at 17:00; Stop 02/26/17 at 08:58; Status DC Bacitracin (Bacitracin Oint Packet) 0.9 gm DAILY TOPICAL Last administered on 08:22; Start 02/25/17 at 09:00 Piperacillin Sod/ Tazobactam Sod 50 ml @ 100 mls/hr Q6H IV Last administered on 03/05/17 04:29; Start 02/26/17 at 11:00; Stop 03/05/17 at 10:59; Status DC Propofol (Diprivan 200 Mg/20 ml Inj) 150 mg STK-MED ONCE IV ; Start 02/26/17 at 11:32; Stop 02/26/17 at 12:22; Status DC Esmolol HCl (Brevibloc Bolus Inj) 10 mg STK-MED ONCE IV ; Start 02/26/17 at 11:32 ; Stop 02/26/17 at 12:22; Status DC Diatrizoate Meglum/ Diatrizoate Sod ( Gastroview Liq) 18 ml ONCE ONCE PO Last administered on 02/26/17 18:58; Start 02/26/17 at 17:30; Stop 02/26/17 at 17: 31; Status DC Iohexol (Omnipaque 350 Inj) 95 ml STK-MED ONCE IV Last administered on 02:31; Start 02/27/17 at 02:31; Stop 02/27/17 at 02:32; Status DC Sodium Chloride 1,000 ml @ 42 mls/hr [id number] IV Last administered on 00:07; Start 02/27/17 at 08:15; Stop 03/01/17 at 07:47; Status DC Morphine Sulfate (Morphine Inj) 1 mg NOW ONCE IV PUSH Last administered on 07:30; Start 02/28/17 at 07:30; Stop 02/28/17 at 07:31; Status DC Sodium Chloride 250 ml @ 15 mls/hr ONCE ONCE IV ; Start 02/28/17 at 09:30; Stop 03/01/17 at 02:13; Status DC Furosemide (Lasix Inj) 20 mg ONCE ONCE IV ; Start 02/28/17 at 10:00; Stop 02/28 at 10:01; Status DC Fentanyl Citrate (fentaNYL INJ) 250 mcg STK-MED ONCE .ROUTE ; Start 03/03/17 at 16:21; Stop 03/03/17 at 16:22; Status DC Miscellaneous Information ALL NURSING DEPARTME... UNSCH PRN .XX SEE LABEL COMMENTS; Start 03/03/17 at 16:07; Stop 03/04/17 at 16:06; Status DC Hyoscyamine Sulfate (Levsin) 0.25 mg Q4H G-TUBE Last administered on 03/09/17 09:45; Start 03/07/17 at 10:00; Stop 03/09/17 at 14:47; Status DC Albuterol/ Ipratropium (Duoneb Neb) 1 ampule Q4HR WHILE AWAKE NEB NEB Last administered on 03/11/17 08:36; Start 03/07/17 at 12:00; Stop 03/11/17 at 12:00 ; Status DC Hyoscyamine Sulfate (Levsin) 0.25 mg Q8H G-TUBE Last administered on 03/16/17 05:09; Start 03/09/17 at 22:00; Stop 03/16/17 at 10:01; Status DC Pharmacy Profile Note 0 ml @ 0 mls/hr UNSCH OTHER ; Start 03/10/17 at 09:00; Stop 03/15/17 at 15:12; Status DC Vancomycin HCl 1250 mg/Sodium Chloride 262.5 ml @ 262.5 mls/ hr Q12H IV ; Start 03/10/17 at 09:00; Status UNV Vancomycin HCl 1250 mg/Sodium Chloride 262.5 ml @ 250 mls/hr Q12H IV Last administered on 03/12/17 11:08; Start 03/10/17 at 11:00; Stop 03/13/17 at 12:51 ; Status DC Miscellaneous Information SPECIFIC LAB TO BE ELISA... ONCE ONCE .XX Last administered on 03/11/17 21:38; Start 03/11/17 at 22:45; Stop 03/11/17 at 22:46 ; Status DC Sodium Chloride 500 ml @ 500 mls/hr BOLUS ONCE IV Last administered on 10:45; Start 03/10/17 at 10:45; Stop 03/10/17 at 11:44; Status DC Iohexol (Omnipaque 350 Inj) 71 ml STK-MED ONCE IVCONTRAST ; Start 03/10/17 at 21 :04; Stop 03/10/17 at 21:05; Status DC Miscellaneous Information SPECIFIC LAB TO BE DRAWN:VANCOMYCIN TROUGH DATE TO... ONCE ONCE .XX Last administered on 03/12/17 10:45; Start 03/12/17 at 10:45; Stop 03/12/17 at 10:46; Status DC Vancomycin HCl 1500 mg/Sodium Chloride 515 ml @ 257.5 mls/ hr Q24H IV Last administered on 03/15/17 14:17; Start 03/13/17 at 15:00; Stop 03/15/17 at 15:12 ; Status DC Miscellaneous Information SPECIFIC LAB TO BE DRAWN:VANCOMYCIN TROUGH DATE TO... ONCE ONCE .XX ; Start 03/16/17 at 14:45; Stop 03/16/17 at 14:45; Status DC Gadodiamide (Omniscan Pf Inj) 16 ml STK-MED ONCE IV PUSH Last administered on 16:35; Start 03/14/17 at 16:35; Stop 03/14/17 at 16:36; Status DC Levofloxacin (Levaquin) 500 mg DAILY PO Last administered on 03/20/17 09:52; Start 03/15/17 at 16:00; Stop 03/20/17 at 10:15; Status DC Hyoscyamine Sulfate (Levsin) 0.25 mg Q4H G-TUBE Last administered on 03/18/17 09:11; Start 03/16/17 at 14:00; Stop 03/18/17 at 14:38; Status DC Hyoscyamine Sulfate (Levsin Liq) 0.125 mg ONCE ONCE PO Last administered on 11:00; Start 03/16/17 at 11:00; Stop 03/16/17 at 11:01; Status DC Guaifenesin/ Codeine Phosphate (Robitussin Ac 200-20 Mg/10 ml Liq) 10 ml ONCE ONCE PEG ; Start 03/16/17 at 15:45; Stop 03/16/17 at 15:46; Status DC Hyoscyamine Sulfate (Levsin) 0.25 mg Q8HR G-TUBE Last administered on 13:00; Start 03/18/17 at 22:00 Warfarin Sodium (Coumadin) 5 mg DAILY@1600 PO Last administered on 03/22/17 18: 48; Start 03/19/17 at 16:30; Stop 03/23/17 at 12:09; Status DC Pharmacy Profile Note 0 ml @ 0 mls/hr UNSCH OTHER ; Start 03/19/17 at 15:30 Sodium Chloride 1,000 ml @ 84 mls/hr [id number] IV Last administered on 03/24/17 06:18; Start 03/22/17 at 19:00; Stop 03/24/17 at 12:13; Status DC Warfarin Sodium (Coumadin) 4 mg DAILY@1600 PO Last administered on 03/23/17 14: 38; Start 03/23/17 at 16:00; Stop 03/25/17 at 10:39; Status DC Vancomycin HCl 1000 mg/Sodium Chloride 250 ml @ 250 mls/hr ONCE ONCE IV ; Start 03/24/17 at 12:15; Stop 03/24/17 at 12:50; Status DC Piperacillin Sod/ Tazobactam Sod 100 ml @ 200 mls/hr Q8H IV Last administered on 04/05/17 13:00; Start 03/24/17 at 14:00 Vancomycin HCl 1000 mg/Sodium Chloride 250 ml @ 250 mls/hr ONCE ONCE IV Last administered on 03/24/17 17:14; Start 03/24/17 at 15:00; Stop 03/24/17 at 15:59; Status DC Propofol (Diprivan 200 Mg/20 ml Inj) 200 mg STK-MED ONCE IV ; Start 03/03/17 at 12:00; Stop 03/25/17 at 08:35; Status DC Ondansetron HCl (Zofran Inj) 4 mg STK-MED ONCE IV PUSH ; Start 03/03/17 at 12:00 ; Stop 03/25/17 at 08:35; Status DC Warfarin Sodium (Coumadin) 3 mg DAILY@1600 PO Last administered on 03/26/17 14: 56; Start 03/25/17 at 16:00; Stop 03/28/17 at 09:45; Status DC Insulin Aspart (NovoLOG SUPPLEMENTAL SCALE) 1 ACHS SLIDING SCALE SQ Last administered on 04/05/17 17:00; Start 03/26/17 at 21:00 Dextrose (D50w (Vial) Inj) 50 ml UNSCH PRN IV PUSH HYPOGLYCEMIA - SEE COMMENTS ; Start 03/26/17 at 18:15 Glucagon (Glucagon Inj) 1 mg UNSCH PRN OTHER HYPOGLYCEMIA-SEE COMMENTS; Start 03/26/17 at 18:15 Insulin Detemir (Levemir Inj) 5 units Q12HR SQ Last administered on 03/28/17 07 :49; Start 03/27/17 at 21:00; Stop 03/28/17 at 11:01; Status DC Warfarin Sodium (Coumadin) 2 mg DAILY@1600 PO Last administered on 03/31/17 16 :14; Start 03/28/17 at 16:00; Stop 03/31/17 at 16:34; Status DC Insulin Detemir (Levemir Inj) 10 units Q12HR SQ Last administered on 04/05/17 08:15; Start 03/28/17 at 21:00 Diltiazem HCl (Cardizem) 60 mg QID PEG Last administered on 04/05/17 17:12; Start 03/28/17 at 18:00 Diltiazem HCl (Cardizem) 30 mg ONCE ONCE G-TUBE Last administered on 21:15; Start 03/30/17 at 21:15; Stop 03/30/17 at 21:16; Status DC Warfarin Sodium (Coumadin) 1 mg ONCE ONCE PO Last administered on 03/31/17 17 :54; Start 03/31/17 at 16:45; Stop 03/31/17 at 16:46; Status DC Warfarin Sodium (Coumadin) 3 mg DAILY@1600 PO Last administered on 04/03/17 15 :12; Start 04/01/17 at 16:00; Stop 04/03/17 at 16:43; Status DC Sodium Chloride 250 ml @ 250 mls/hr BOLUS ONCE IV Last administered on 13:29; Start 04/01/17 at 12:30; Stop 04/01/17 at 13:29; Status DC Sodium Chloride 1,000 ml @ 65 mls/hr [id number] IV Last administered on 12:29; Start 04/01/17 at 12:30 Sodium Chloride 250 ml @ 250 mls/hr BOLUS ONCE IV Last administered on 22:45; Start 04/01/17 at 22:45; Stop 04/01/17 at 23:44; Status DC Sodium Chloride 250 ml @ 15 mls/hr ONCE ONCE IV ; Start 04/02/17 at 10:45; Stop 04/03/17 at 03:24; Status DC Acetaminophen (Tylenol) 650 mg Q4H PRN PO SEE LABEL COMMENTS Last administered on 04/03/17 05:26; Start 04/02/17 at 10:45 Diphenhydramine HCl (Benadryl) 25 mg Q4H PRN PO SEE LABEL COMMENTS Last administered on 04/03/17 05:26; Start 04/02/17 at 10:45 Furosemide (Lasix Inj) 20 mg ONCE ONCE IV ; Start 04/02/17 at 10:45; Stop 04/02 at 11:18; Status DC Warfarin Sodium (Coumadin) 4 mg DAILY@1600 PO ; Start 04/04/17 at 16:00; Stop at 16:00; Status DC Warfarin Sodium (Coumadin) 1 mg ONCE ONCE PO Last administered on 04/03/17 17 :23; Start 04/03/17 at 16:45; Stop 04/03/17 at 16:46; Status DC Date of Insertion: Mar 03, 2017 A/P Problem List: (1) CVA (cerebral vascular accident) ICD Code: I63.9 - Cerebral infarction, unspecified Status: Acute (2) A-fib ICD Code: I48.91 - Unspecified atrial fibrillation Status: Chronic (3) DM (diabetes mellitus) ICD Code: E11.9 - Type 2 diabetes mellitus without complications Status: Chronic (4) Hyponatremia ICD Code: E87.1 - Hypo-osmolality and hyponatremia Status: Acute Assessment and Plan 60 year-old male with past medical history of paroxysmal A. fib, hypertension, stage III non-Hodgkin's lymphoma status post chemotherapy who came into the hospital with altered mental status. PEG tube site cellulitis - ID following, appreciate their assistance - wound culture positive for Kleb pneumo sensitive to Levaquin - SP treatment with IV Levaquin x 5 days however there is still purulence observed. Continue wound care. Reculture wound. - As per Wound care recommendations. Cleanse around PEG tube site with normal saline and apply drain sponge around tube secure tube and drain sponge with medifix tape change as needed. Please use skin prep before applying adhesives to skin. Continue. 03/23 purulent discharge observed from PEG site - re ordered wound culture and will reconsult ID. 03/24 ID reconsulted recommendations pending. Patient with low grade fever overnight with a tmax of 99.7. Will start on Iv broad spectrum antibiotics ( Vancomycin and Zosyn IV), check blood cultures, CXR and urinalysis 03/25 UA (+) with urine culture growing gram negative rods. Continue IV zosyn and fu ID recommendations. blood cultures negative. Consult infectious GI to asses PEG tube. 03/26 GI recommendations pending regarding PEG tube. Continue IV zosyn for now. 03/27 Continue antibiotics as per ID. Continue Zosyn, repeat cultures if febrile. 03/24 Urine culture is growing pseudomonas. 04/01 urine cx with no growth x 48hrs. 03/23 wound culture growing MDR pseudomonas. GI reconsulted however patient no seen yet. 03/25 BCX with no growth x 5 days. Fever -Patient continues to have fever. - uncertain source - white count 5.4 - Patient currently on Zosyn - ID following - Blood cultures show no growth, CXR shows mild interstitial prominence. UA negative. Sputum cx growing Pseudomonas. Follow up on urine cx results wound culture positive for yeast species. -Will repeat blood cultures since patient continues to spike fever. Continue Zosyn. Management per infectious disease. 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 - CT of the abdomen showed bladder mass right posteriorly with apparent extravesical extension and clot formation. - Urology spoke with family member, daughter, states that he's not recommending biopsy of the bladder mass. However daughter insisted on biopsy. Patient s/p cystoscopy and palliative transurethral resection of bladder tumor greater than 5 cm originating from right bladder wall performed by Dr. Sewell . 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 - Oncology following - appreciate their assistance. Family requesting aggressive therapy. CT chest negative for malignancy. MRI completed. Patient is not a candidate for chemotherapy. Family has decided on palliative XRT treatment and would like it to start MIGEL. Consult placed for radiation oncology. - Palliative care following, appreciate their assistance. - Continue to flush lopez catheter PRN. Monitor for recurrence of hematuria - Patient is currently undergoing radiation therapy. Monitor for side effects. - 03/28 Mild hematuria today, continue to monitor urine output or for side effects. Hold Coumadin for now until hematuria resolves. Resume Coumadin once hematuria resolves. - 03/29 Continues on Coumadin. No observed hematuria. - 04/02 Liver US shows small hypoechoic lesion in the right hepatic lobe that is not convincing for a cyst or other benign structure. A small metastatic lesion would be in the differential. Hepatomegaly. Sludge and small stones in the gallbladder. No evidence of cholecystitis or biliary obstruction. - 04/04 pinkish urine in bag. Will continue on Coumadin for now. Monitor H/ H closely. Monitor INR closely. Patient has completed 01/27 radiations treatments. 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 Intermittently tracks with eyes. - Continue Keppra 500mg BID for seizure prophylaxis. Keppra level 17.8. - PT/OT signed off as patient is unable to participate. - On Paxil 20 by mouth daily for depression. - On acetaminophen with codeine for pain scale of 2-10. - Morphine 1 mg every 24 hours when necessary for dressing change Chronic respiratory failure secondary to CVA - Status post tracheostomy. Continue pulmonary toilet and bronchodilators as needed. Continue trach care, suctioning. Increased secretions improved with scheduled Levsin. Decreased dosing of scheduled Levsin to q8h. - Pulmonary currently following, appreciate assistance. - Duo nebs every 4 hours while awake Atrial fibrillation, controlled Hypertension Dyslipidemia - Continue rate control with Cardizem and metoprolol. - [id number] score 4 - Echocardiogram in November 2015 shows preserved ejection fraction. - continue on Coumadin. Pharmacy to dose. Continue to monitor INR. - Continue aspirin - Continue on Cardizem 60mg QID History of non-Hodgkin's lymphoma - Status post brain biopsy on December 13 by neurosurgery. Pathology consistent with acute infarct without evidence of lymphoma. Diabetes mellitus Type 2 - Hemoglobin A1c is 5.5. - Fingersticks have been stable and were DC'd 02/01/17 - 03/24 Blood sugar uncontrolled - continue Accu-Cheks and SSI with insulin NovoLog. - 03/27 Blood sugar severely elevated in the 200's. continue SQ Levemir 5 units SQ BID. continue SSI with insulin Novolog. - 03/28 sugars still very elevated above the 200s. continue Levemir subcutaneously to 10 units subcutaneously twice a day. Continue SSI with insulin NovoLog. Continue to monitor Accu-Cheks. Decubitus ulcer stage IV - Status post wide excision of sacral skin and biopsy of the cavity lining with debridement on 07/22/16. - Continue pressure relief measures including turning and positioning. Continue to monitor. - Patient's family has declined a diverting colostomy. Previous Wound culture growing Klebsiella and Enterococcus Faecalis. Previously on Augmentin. - Wound care last saw patient on 03/14/17, no new recommendations continue packing with Betadine moistened rolled Janis and covered with ABD pad and paper tape to secure. - Morphine 1 mg every 24 hours when necessary for dressing change Protein calorie malnutrition Gastroesophageal reflux disease Gastric ulcer, reflux esophagitis Diarrhea, negative for C. difficile. Improved - EGD on 07/30/16 showed gastric ulcers. Continue on Prevacid 30 mg Q12. - G/J tube clogged, IR consulted to evaluate. Replaced on 02/25/17 - TF held 03/16 due to emesis. No recurrence. TF resumed yesterday - patient tolerating. Finance Professor consulted to assist with rate/needs. Per their recommendations, Rec increasing TF'ing 10ml/hr Q 6hr, as tolerated, to goal rate 55ml/hr. Rec to discontinue the Ashish r/t pt has received Ashish for Rec dosing of 4-weeks to promote new tissue growth. - Continue bowel regimen with hold parameters, Lactinex and Imodium. Klebsiella/Pseudomonas/staph aureus HCAP PSAE UTI - S/p Cefepime. Monitor for signs of infections. - strep pneumonia and Legionella urinary Ag is negative - C-diff PCR negative on 01/13 - 01/09 BC : Staph Epi, Urine cx: Pseudomonas, Sputum cx: Pseudomonas, kleb, Staph. - Patient was pancultured on 01/19 (Blood, sputum, urine) NGTD in urine and blood. Sputum + for pseudomonas. Likely colonization. - CXR 04/03/17 shows small lung volumes, mild interstitial prominence without focal infiltrate. Sputum cx pending. Hyponatremia - resolved Anemia - sp transfusion of 1 unit of PRBC on 03/24. Hemoglobin responded appropriately from 6.8 and 8.1. - Stool Hemoccult negative. - Continue to monitor cbc. - 04/01 Hemoglobin decr at 7.0. Transfuse for hemoglobin < 7. - 04/02 Hemoglobin 6.9, transfused 2units PRBCs. Good response with f/u hgb 9.0 - small amount of active bleeding from PEG site and sacral wound as well as pinkish urine in bag. Follow CBC closely. DVT prophylaxis: SCDs Discharge Planning pt to complete radiation therapy in house prior to be discharged to [facility] Problem Qualifiers (1) CVA (cerebral vascular accident): (2) DM (diabetes mellitus): Patsy Wilkes MD Apr 05, 2017 17:23
--- NOTE | 2017-04-05 18:15 | HHI.IDPN ---
Subjective Subjective Remarks intermittent fever: had yday, but not today tolerating Tpiece + hypoxic episodes aw mucus plugs Antibiotics zosyn Lines Peripheral IV Past Medical History Hypertension. Stage III non-Hodgkin's lymphoma. Diabetes mellitus. Paroxysmal atrial fibrillation. Brain biopsy in Nov, 2015. History of left arm surgery. 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 Vital Signs Date Time Temp Pulse Resp B/P (MAP) Pulse Ox O2 Delivery O2 Flow Rate FiO2 04/05/17 17:49 99 T-piece 6.00 28 04/05/17 17:48 99 T-piece 6.00 28 04/05/17 16:00 100.1 118 17 113/66 (82) 93 04/05/17 12:00 101.5 119 16 134/68 (90) 97 04/05/17 09:49 100 T-piece 4.00 28 04/05/17 09:49 100 T-piece 4.00 28 04/05/17 08:00 97.8 119 18 136/91 (106) 97 04/05/17 00:00 98.1 104 17 124/76 (92) 98 04/04/17 22:05 T-Piece 5.00 04/04/17 21:45 100.7 122 20 135/75 (95) 96 04/04/17 20:00 99.8 120 17 127/71 (89) 95 04/05/17 04/05/17 04/06/17 15:00 23:00 07:00 Intake Total 100 ml 902 ml Balance 100 ml 902 ml IV Total 100 ml 629 ml Tube Feeding 273 ml . Laboratory Tests Test 04/04/17 03:57 04/04/17 07:12 04/05/17 05:38 White Blood Count 5.1 TH/MM3 5.4 TH/MM3 4.9 TH/MM3 Red Blood Count 3.63 MIL/MM3 3.61 MIL/MM3 3.90 MIL/MM3 Hemoglobin 9.0 GM/DL 8.9 GM/DL 9.9 GM/DL Hematocrit 27.0 % 27.1 % 29.6 % Mean Corpuscular Volume 74.5 FL 75.1 FL 75.9 FL Mean Corpuscular Hemoglobin 24.8 PG 24.8 PG 25.4 PG Mean Corpuscular Hemoglobin Concent 33.4 % 33.0 % 33.5 % Red Cell Distribution Width 22.3 % 22.2 % 22.5 % Platelet Count 82 TH/MM3 77 TH/MM3 85 TH/MM3 Mean Platelet Volume 8.1 FL 8.2 FL 8.1 FL Neutrophils (%) (Auto) 70.4 % 69.6 % Lymphocytes (%) (Auto) 17.7 % 18.3 % Monocytes (%) (Auto) 6.7 % 7.7 % Eosinophils (%) (Auto) 4.5 % 3.5 % Basophils (%) (Auto) 0.7 % 0.9 % Neutrophils # (Auto) 3.8 TH/MM3 3.4 TH/MM3 Lymphocytes # (Auto) 1.0 TH/MM3 0.9 TH/MM3 Monocytes # (Auto) 0.4 TH/MM3 0.4 TH/MM3 Eosinophils # (Auto) 0.2 TH/MM3 0.2 TH/MM3 Basophils # (Auto) 0.0 TH/MM3 0.0 TH/MM3 CBC Comment AUTO DIFF AUTO DIFF Differential Comment AUTO DIFF CONFIRMED FINAL DIFF MANUAL Platelet Estimate LOW Platelet Morphology Comment NORMAL Tear Drop Cells 1+ Differential Total Cells Counted 100 Neutrophils % (Manual) 65 % Band Neutrophils % 10 % Lymphocytes % 8 % Monocytes % 6 % Eosinophils % 7 % Basophils % 1 % Neutrophils # (Manual) 3.8 TH/MM3 Metamyelocytes 3 % Nucleated Red Blood Cells 3 /100 WBC Laboratory Tests Test 04/04/17 03:57 04/05/17 05:35 Blood Urea Nitrogen 25 MG/DL 28 MG/DL Creatinine 1.26 MG/DL 1.36 MG/DL Random Glucose 159 MG/DL 169 MG/DL Calcium Level 9.1 MG/DL 9.7 MG/DL Sodium Level 139 MEQ/L 141 MEQ/L Potassium Level 3.8 MEQ/L 3.9 MEQ/L Chloride Level 105 MEQ/L 105 MEQ/L Carbon Dioxide Level 24.8 MEQ/L 26.7 MEQ/L Anion Gap 9 MEQ/L 9 MEQ/L Estimat Glomerular Filtration Rate 58 ML/MIN 53 ML/MIN Total Protein 8.4 GM/DL Albumin 1.7 GM/DL Alkaline Phosphatase 298 U/L Aspartate Amino Transf (AST/SGOT) 120 U/L Alanine Aminotransferase (ALT/SGPT) 33 U/L Total Bilirubin 0.3 MG/DL Microbiology Date/Time Source Procedure Growth Status 04/03/17 21:20 Blood Peripheral Aerobic Blood Culture - Preliminary NO GROWTH IN 2 DAYS Resulted 04/03/17 21:20 Blood Peripheral Anaerobic Blood Culture - Preliminary NO GROWTH IN 2 DAYS Resulted 04/03/17 21:20 Blood Peripheral Aerobic Blood Culture - Preliminary NO GROWTH IN 2 DAYS Resulted 04/03/17 21:20 Blood Peripheral Anaerobic Blood Culture - Preliminary NO GROWTH IN 2 DAYS Resulted 04/04/17 02:40 Sputum Endotracheal Gram Stain - Final Resulted 04/04/17 02:40 Sputum Culture - Preliminary Pseudomonas Aeruginosa Resulted 04/03/17 15:25 Urine Catheterized Urine Urine Culture - Final Complete 04/04/17 18:40 Wound Skin Gram Stain - Final Resulted 04/04/17 18:40 Wound Culture - Preliminary Yeast Species Resulted Imaging Last Impressions Chest X-Ray 04/03/17 0000 Signed Impressions: Service Date/Time: March 15:58 - CONCLUSION: Small lung volumes remain. Mild interstitial prominence without focal infiltrate. Sheldon Garcia MD Liver Ultrasound 04/02/17 0000 Signed Impressions: Service Date/Time: Sunday, April 02, 2017 18:36 - CONCLUSION: 1. Small hypoechoic lesion in the right hepatic lobe that is not convincing for a cyst or other benign structure. A small metastatic lesion would be in the differential. I don't clearly see it on the prior CTs. Abdomen MRI with and without contrast may be helpful. 2. Hepatomegaly. 3. Sludge and small stones in the gallbladder. No evidence of cholecystitis or biliary obstruction. Glen Moore MD Brain MRI 03/14/17 0000 Signed Impressions: Service Date/Time: Tuesday, March 14, 2017 12:41 - CONCLUSION: The signal abnormality and enhancement within the bilateral occipital lobes and colin have decreased since the prior examinations. No new abnormality is identified. There is no new enhancing area or signs of a recent ischemia. Glen Gordon MD Chest CT 03/10/17 0000 Signed Impressions: Service Date/Time: Friday, March 10, 2017 21:00 - CONCLUSION: 1. Periaortic soft tissue along the proximal descending thoracic aorta not previously seen. This represents either lymphomatous involvement or adjacent consolidated airspace disease. 2. Mild bilateral airspace disease 3. No evidence of significant lymphadenopathy involving the mediastinum, hilar regions, axillas or supraclavicular lore chain. 4. Tracheostomy tube in place. Ernesto Kulkarni MD Abdomen/Pelvis CT 02/27/17 0000 Signed Impressions: Service Date/Time: February 02:24 - CONCLUSION: 1. Abdominal aortic aneurysm. 2. Bladder mass is noted on the right posteriorly with apparent extravesical extension and clot formation. 3. Left renal cyst. 4. Left lower lobe atelectasis. 5. Large sacral decubitus ulcer with bony destruction and sclerosis of the sacrum mid to left lateral portion in the region of S3 and inferiorly which would suggest chronic osteomyelitis in the appropriate clinical setting. Rajan Granados MD Soft Tissue Ultrasound 02/26/17 0000 Signed Impressions: Service Date/Time: Sunday, February 26, 2017 12:52 - CONCLUSION: 1. Just inferior to the G-tube in the left abdomen, there is a superficial 3.8 x 2.9 0.9 cm complex fluid collection in the subcutaneous tissues. 2. Findings are nonspecific. This could represent a small seroma or abscess. Would consider CT scan of the abdomen without contrast for further evaluation to determine if there is intraperitoneal extension. Bobby Gray MD Gastrostomy Tube Placement 02/25/17 0000 Signed Impressions: Service Date/Time: Saturday, February 25, 2017 14:19 - CONCLUSION: Uncomplicated exchange of gastroenteric feeding tube for gastrostomy tube as above. Positioning confirmed. The tube can be used immediately. Glen Zamora MD Tube Change 02/14/17 0000 Signed Impressions: Service Date/Time: Tuesday, February 14, 2017 00:00 - CONCLUSION: Uncomplicated gastrojejunostomy tube exchange as above. Scott Griffin MD Head CT 01/09/17 0000 Signed Impressions: Service Date/Time: December 17:43 - CONCLUSION: 1. No acute hemorrhage or mass effect. 2. 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 3. Atrophy. Gerald Mukherjee MD CT Angiography 01/09/17 0000 Signed Impressions: Service Date/Time: December 17:49 - CONCLUSION: 1. No evidence of pulmonary emboli. 2. Patchy consolidation in both posterior lower lobes right greater than left. This could represent pneumonia. 3. 2 small noncalcified pulmonary nodules which are nonspecific finding. Short-term CT followup is recommended beginning in 6 months with a noncontrast outpatient CT. Gerald Mukherjee MD Tube Check 12/04/16 0000 Signed Impressions: Service Date/Time: Sunday, December 04, 2016 17:58 - CONCLUSION: Uncomplicated tube injection as above. the tube is in good position and functions normally. Moises Ramírez MD Abdomen X-Ray 08/31/16 0000 Signed Impressions: Service Date/Time: Wednesday, August 31, 2016 16:36 - CONCLUSION: 1. No acute findings. Mild constipation. Durga Dotson MD Head Magnetic Resonance Angiography 03/05/16 0000 Signed Impressions: Service Date/Time: Saturday, March 05, 2016 09:26 - CONCLUSION: Persistent high-grade subtotal occlusive stenotic lesions in the distal right vertebral artery and proximal basilar artery with significant improvement in flow and recanalization following initial presentation of thrombosis. Stable interstitial circulation without significant stenosis. Ernesto Kulkarni MD Neck Magnetic Resonance Angiography 12/22/15 1445 Signed Impressions: Service Date/Time: Tuesday, December 22, 2015 09:22 - CONCLUSION: Variant origin of the left vertebral artery from the aortic arch. No evidence of carotid stenosis. Glen Zamora MD Head/Brain Mag Res Venography 12/22/15 0000 Signed Impressions: Service Date/Time: Tuesday, December 22, 2015 09:22 - CONCLUSION: Normal MRV. Jonel Jones Jr., MD Physical Exam GENERAL: eyes opened , NAD SKIN: Warm to touch and dry. No generalized rash HEENT: [place] conjunctiva. . No scleral icterus. No injection or drainage. Mucous membranes pink and moist. NECK: Tracheostomy site looks okay. No secretions in the tubings noted CARDIOVASCULAR: Regular rate and rhythm. No murmur or rub. RESPIRATORY: clear to auscultation ABDOMEN: Soft, obese, non-tender, not distended. PEG site with more prominent area of macerated scin, no purulence , mucoid drainage is present BS (+) normoactive EXTREMITIES: No clubbing, cyanosis. MIld pedal edema. NEUROLOGICAL: resting , not following. Eyes opened, tracks MS is at b/l PSYCH: Unable to assess ; lopez in place, urine looks clear , light yellow Assessment & Plan Remarks IMPRESSION Fever sepsis CVA, with significant neurologic sequela Hx NHL Minimal perihilar infiltrate is present stage IV decub with no e/o infx Superficial appaering PEG anne marie infection, sp treatment - not a[pearing as infx, drainage more likely slighlty laking tube feeds Worsening renal fnx : no urine eos Fever UTI, PSAE Diarrhea, abx assciated, C.diff negative US findings of the liver lesion noted: rec'd MRI RECOMMENDATION cont zosyn start fluconazole consider MRI or CT to better eval liver lesions fu WBC, temps dw mother @ bs dw Violetta Del Toro MD Apr 05, 2017 18:15
[2017-04-05] MEDS: LOPERAMIDE HCL SOLN 2 MG/10 ML UDC PEG PRN (21:32)
[2017-04-06] VITALS (7 sets, daily range): BP systolic 119–146; BP diastolic 67–83; PULSE 110–115; RESP 18–37; TEMP 96.5–100.6; O2SAT 95–100
[2017-04-06] MEDS: SODIUM CHLOR 0.9% 1000 ML INJ 1,000 ML IV SCH ×2 (03:53→17:51)
[2017-04-06] MEDS: ACETIC ACID 0.25% SOLN 1000 ML IRR BTL IRRIGATION SCH ×3 (05:01→20:40)
[2017-04-06] MEDS: PIPERACIL-TAZO 4.5 GM PREMIX 100 ML IV SCH ×3 (05:01→20:39)
[2017-04-06] MEDS: HYOSCYAMINE 0.125 MG TAB G-TUBE SCH ×3 (05:01→20:39)
[2017-04-06 07:32] LABS: INTERNATIONAL NORMALIZED RATIO 2.2 RATIO; PROTHROMBIN TIME - PATIENT 24.6 SEC (9.8-11.6)
[2017-04-06] MEDS: LANSOPRAZOLE SOLUTAB 30 MG TAB NG SCH ×2 (07:52→20:38)
[2017-04-06] MEDS: FLUCONAZOLE 200 MG TAB PO SCH (07:53)
[2017-04-06] MEDS: ASCORBIC ACID 500 MG TAB PO SCH (07:53)
[2017-04-06] MEDS: FERROUS SULFATE 300 MG /5ML UDC PO SCH (07:53)
[2017-04-06] MEDS: DILTIAZEM HCL 30 MG TAB PEG SCH ×4 (07:53→20:38)
[2017-04-06] MEDS: ASPIRIN 325 MG TAB TUBE SCH (07:53)
[2017-04-06] MEDS: BACITRACIN TOP OINT 15 GM TUBE TOP SCH ×2 (07:54→20:39)
[2017-04-06] MEDS: INSULIN DETEMIR 100 UNITS/ML VIAL SQ SCH ×2 (07:54→20:39)
[2017-04-06] MEDS: NYSTATIN 100,000 U/GM PWD 15 GM BTL TOPICAL SCH ×2 (07:55→20:39)
[2017-04-06] MEDS: BACITRACIN OINT 0.9 GM PKT TOPICAL SCH (07:55)
[2017-04-06] MEDS: levETIRAcetam 500 MG/5 ML UDC TUBE SCH ×2 (07:56→20:39)
[2017-04-06] MEDS: INSULIN ASPART SUPPLEMENTAL SCALE SQ SCH ×4 (08:00→20:53)
[2017-04-06] MEDS: ARTIFICIAL TEARS OPTH SOLN 15 ML BTL EACH EYE SCH ×2 (08:27→20:39)
[2017-04-06] MEDS: SODIUM CHLORIDE 0.65% NASAL SPRAY 45 ML BTL NASAL SCH ×2 (08:27→20:39)
--- NOTE | 2017-04-06 11:51 | HHI.PR ---
Subjective Remarks Follow-up for fevers Patient has had low-grade fever. His friend and mother at the bedside. Otherwise no acute events. Objective Vitals Vital Signs Date Time Temp Pulse Resp B/P (MAP) Pulse Ox O2 Delivery O2 Flow Rate FiO2 04/06/17 08:02 96 T-piece 5.00 28 04/06/17 08:02 96 T-piece 5.00 28 04/06/17 08:00 100.6 115 37 146/83 (104) 100 04/06/17 04:00 96.5 113 19 135/75 (95) 97 04/06/17 00:00 99.5 110 19 119/67 (84) 96 04/05/17 21:40 T-Piece 5.00 04/05/17 20:31 100.0 112 22 120/71 (87) 96 04/05/17 17:49 99 T-piece 6.00 28 04/05/17 17:48 99 T-piece 6.00 28 04/05/17 16:00 100.1 118 17 113/66 (82) 93 04/05/17 12:00 101.5 119 16 134/68 (90) 97 I/O 04/05/17 04/05/17 04/05/17 04/06/17 04/06/17 04/06/17 07:00 15:00 23:00 07:00 15:00 23:00 Intake Total 1590 ml 200 ml 1002 ml 1836 ml Output Total 600 ml 800 ml 500 ml Balance 990 ml 200 ml 202 ml 1336 ml Intake Oral 240 ml 0 ml 0 ml IV Total 690 ml 200 ml 729 ml 1100 ml Tube Feeding 660 ml 273 ml 696 ml Tube Irrigant 40 ml Output Urine Total 600 ml 800 ml 500 ml # Bowel Movements 2 1 1 Result Diagram: 04/05/17 0538 04/05/17 0535 Objective Remarks Gen NAD CV RRR. no r//g Resp trach in place clear stalk station bilaterally abd soft NDNT pelvic show small amount by mouth and discharged at the site but no erythema NEURO she does not follow commands. Procedures 07/22/2016 Wide excision of sacral skin wound, biopsy of the cavity lining and debridement. PEG removal and Gj tube placement 07/29/16 VAC changes- M-W-F 10/23/16, 11/18, 12/31- GJ tube replacement 01/02/16 PEG placement 01/02/16 tracheostomy 02/25/17 PEG replacement 03/03/17 Cystoscopy and palliative transurethral resection of bladder tumor greater than 5cm originating from the right bladder wall Medications and IVs Current Medications IV Flush (NS Flush) 2 ml UNSCH PRN IVF FLUSH AFTER USING IV ACCESS Last administered on 03/27/17t 07:40; Start 12/21/15 at 06:00 Ondansetron HCl (Zofran Inj) 4 mg STK-MED ONCE .ROUTE ; Start 12/21/15 at 06:22; Stop 12/21/15 at 06:23; Status DC Ondansetron HCl (Zofran Inj) 4 mg ONCE ONCE IV PUSH Last administered on at 06:43; Start 12/21/15 at 06:30; Stop 12/21/15 at 06:31; Status DC Diltiazem HCl (Cardizem Inj) 20 mg ONCE ONCE IV Last administered on 12/21/15at 06:42; Start 12/21/15 at 06:30; Stop 12/21/15 at 06:31; Status DC Diltiazem HCl 125 mg/Sodium Chloride 125 ml @ 0 mls/hr TITRATE IV Last administered on 12/21/15at 06:47; Start 12/21/15 at 06:30; Stop 12/21/15 at 13:00; Status DC Acetaminophen (Tylenol) 650 mg ONCE ONCE PO ; Start 12/21/15 at 06:45; Stop 12/20 at 06:46; Status DC Lorazepam (Ativan Inj) 1 mg ONCE ONCE IV PUSH Last administered on 12/21/15at 07 :22; Start 12/21/15 at 07:15; Stop 12/21/15 at 07:16; Status DC Etomidate (Amidate Inj) 40 mg STK-MED ONCE .ROUTE Last administered on at 08:17; Start 12/21/15 at 07:37; Stop 12/21/15 at 07:38; Status DC Succinylcholine Chloride (Quelicin Inj) 200 mg STK-MED ONCE .ROUTE Last administered on 12/21/15at 08:18; Start 12/21/15 at 07:37; Stop 12/21/15 at 07:38; Status DC Propofol 100 ml @ As Directed STK-MED ONCE .ROUTE Last administered on at 08:19; Start 12/21/15 at 07:46; Stop 12/21/15 at 07:47; Status DC Propofol (Diprivan 1000 Mg/100ml Inj) search Sets for Drip. NOW PRN IV SEDATION Last administered on 12/22/15at 06:25; Start 12/21/15 at 08:30; Stop 12/28 at 15:43; Status DC Gadodiamide (Omniscan Pf Inj) 18 ml STK-MED ONCE IV Last administered on at 10:11; Start 12/21/15 at 10:11; Stop 12/21/15 at 10:12; Status DC Pantoprazole Sodium (Protonix Inj) 40 mg DAILY IV Last administered on at 07:39; Start 12/21/15 at 13:00; Stop 01/03/16 at 10:10; Status DC Albuterol/ Ipratropium (Duoneb Neb) 1 ampule Q6HR NEB INH Last administered on 12/25/15at 07:51; Start 12/21/15 at 13:00; Stop 12/25/15 at 13:00; Status DC Miscellaneous Information 1 [id number] Last administered on 12/21/15at 13:00; Start 12/21/15 at 13:00; Stop 01/12/16 at 11:47; Status DC Chlorhexidine Gluconate (Chlorhexidine 2% Cloth) 3 pack Taper DAILY@04 TOP Last administered on 01/11/16at 04:10; Start 12/22/15 at 04:00; Stop 01/12/16 at 11:47; Status DC Chlorhexidine Gluconate (Chlorhexidine 2% Cloth) 3 pack UNSCH PRN TOP HYGIENIC CARE; Start 12/21/15 at 13:00; Stop 01/12/16 at 11:47; Status DC Sodium Chloride 1,000 ml @ 75 mls/hr [id number] IV Last administered on 12/22/15at 17:00; Start 12/21/15 at 13:00; Stop 12/22/15 at 19:01; Status DC Dextrose (D50w (Vial) Inj) 25 ml UNSCH PRN IV PUSH HYPOGLYCEMIA-SEE COMMENTS; Start 12/21/15 at 13:00; Stop 04/19/16 at 17:19; Status DC Glucagon (Glucagon Inj) 1 mg UNSCH PRN OTHER HYPOGLYCEMIA-SEE COMMENTS; Start 12/21/15 at 13:00; Stop 04/19/16 at 17:19; Status DC Insulin Human Regular (NovoLIN R SUPPLEMENTAL SCALE) 1 Q6H SQ Last administered on 01/04/16at 06:31; Start 12/21/15 at 13:00; Stop 01/04/16 at 10:05 ; Status DC Levetriacetam (Keppra) 500 mg Q12HR PO Last administered on 12/27/15at 09:00; Start 12/21/15 at 13:45; Stop 12/27/15 at 09:44; Status DC Heparin Sodium (Porcine) (Heparin Inj) 5,000 units BID SQ Last administered on 12/22/15at 20:52; Start 12/21/15 at 21:00; Stop 12/23/15 at 08:32; Status DC Warfarin Sodium (Coumadin) 7.5 mg ONCE ONCE PO Last administered on 12/21/15at 21:43; Start 12/21/15 at 21:00; Stop 12/21/15 at 21:01; Status DC Warfarin Sodium (Coumadin) 5 mg DAILY@16 PO Last administered on 12/23/15at 16:00 ; Start 12/22/15 at 16:00; Stop 12/26/15 at 09:29; Status DC Patient Medication Teaching (Coumadin Booklet) 1 ONCE ONCE XX Last administered on 12/21/15at 20:15; Start 12/21/15 at 20:15; Stop 12/21/15 at 20:16; Status DC Chlorhexidine Gluconate (Peridex 0.12% Liq) 15 ml BID@08,20 MT Last administered on 01/12/16at 08:00; Start 12/22/15 at 20:00; Stop 01/12/16 at 11:47 ; Status DC Gadodiamide (Omniscan Pf Inj) 20 ml STK-MED ONCE IV Last administered on at 09:55; Start 12/22/15 at 09:55; Stop 12/22/15 at 09:56; Status DC Pharmacy Profile Note ml @ 0 mls/hr UNSCH OTHER ; Start 12/22/15 at 11:00; Stop 12/22/15 at 19:43; Status DC Sodium Chloride 1,000 ml @ 50 mls/hr Q20H IV Last administered on 12/24/15at 20: 02; Start 12/22/15 at 18:44; Stop 12/25/15 at 11:52; Status DC Pharmacy Profile Note 0 ml @ 0 mls/hr UNSCH OTHER ; Start 12/22/15 at 19:45; Stop 01/04/16 at 12:25; Status DC Acetaminophen (Tylenol) 650 mg Q6H PRN PO TEMP > 100 Last administered on at 13:24; Start 12/23/15 at 02:45; Stop 12/30/15 at 15:04; Status DC Potassium Chloride 100 ml @ 50 mls/hr Q2H PRN IV For Potassium 2.8 - 3.2 mEq/L ; Start 12/23/15 at 08:30; Stop 01/09/16 at 11:14; Status DC Potassium Chloride 100 ml @ 50 mls/hr Q2H PRN IV For Potassium 2.8 - 3.2 mEq/L ; Start 12/23/15 at 08:30; Stop 01/09/16 at 11:14; Status DC Potassium Chloride (KCl 40 Meq/30 ml Liq) 40 meq UNSCH PRN PO/TUBE For Potassium 3.3 - 3.5 mEq/L; Start 12/23/15 at 08:30; Stop 01/09/16 at 11:14; Status DC Potassium Chloride 100 ml @ 25 mls/hr UNSCH PRN IV For Potassium 3.3 - 3.5 mEq /L; Start 12/23/15 at 08:30; Stop 01/09/16 at 11:14; Status DC Potassium Chloride 100 ml @ 50 mls/hr Q2H PRN IV For Potassium 3.3 - 3.5 mEq/L ; Start 12/23/15 at 08:30; Stop 01/09/16 at 11:14; Status DC Magnesium Sulfate 4 gm/Sodium Chloride 100 ml @ 50 mls/hr UNSCH PRN IV For Magnesium 0.9 - 1.1 mg/dL; Start 12/23/15 at 08:30; Stop 01/09/16 at 11:14; Status DC Magnesium Oxide (Mag-Ox) 800 mg UNSCH PRN PO For Magnesium 1.2 - 1.6 mg/dL; Start 12/23/15 at 08:30; Stop 01/09/16 at 11:14; Status DC Magnesium Sulfate 2 gm/Sodium Chloride 100 ml @ 50 mls/hr UNSCH PRN IV For Magnesium 1.2 - 1.6 mg/dL; Start 12/23/15 at 08:30; Stop 01/09/16 at 11:14; Status DC Potassium Phosphate (K-Phos) 2,000 mg Q4H PRN PO For Phosphorus < 2.5 mg/dL; Start 12/23/15 at 08:30; Stop 01/09/16 at 11:14; Status DC Sodium Phosphate 30 mmol/Sodium Chloride 250 ml @ 42 mls/hr UNSCH PRN IV For Phosphorus < 2.5 mg/dL; Start 12/23/15 at 08:30; Stop 01/09/16 at 11:14; Status DC Potassium Chloride (KCl 40 Meq/30 ml Liq) 40 meq UNSCH PRN PO/TUBE SEE LABEL COMMENTS; Start 12/23/15 at 08:30; Stop 01/09/16 at 11:14; Status DC Potassium Phosphate (K-Phos) 2,000 mg UNSCH PRN PO/TUBE SEE LABEL COMMENTS; Start 12/23/15 at 08:30; Stop 01/09/16 at 11:14; Status DC Potassium Phosphate 30 mmol/ Sodium Chloride 260 ml @ 42 mls/hr UNSCH PRN IV SEE LABEL COMMENTS; Start 12/23/15 at 08:30; Stop 01/09/16 at 11:14; Status DC Sodium Chloride 1,000 ml @ 75 mls/hr [id number] IV ; Start 12/23/15 at 08:30; Stop 12/23/15 at 08:30; Status DC Piperacillin Sod/ Tazobactam Sod 50 ml @ 100 mls/hr Q6H IV Last administered on 12/30/15at 10:02; Start 12/23/15 at 10:00; Stop 12/30/15 at 14:50; Status DC Vancomycin HCl 1000 mg/Sodium Chloride 250 ml @ 250 mls/hr Q12H IV Last administered on 12/29/15at 09:01; Start 12/24/15 at 08:45; Stop 12/29/15 at 15:33 ; Status DC Warfarin Sodium (Coumadin) 4 mg DAILY@16 PO Last administered on 12/28/15at 16:00 ; Start 12/26/15 at 16:00; Stop 01/04/16 at 12:25; Status DC Levetriacetam (Keppra Liq) 500 mg Q12HR TUBE Last administered on 04/06/17t 07 :56; Start 12/27/15 at 21:00 Docusate Sodium (Colace Liq) 100 mg Q12HR TUBE Last administered on 01/15/16at 09:01; Start 12/27/15 at 21:00; Stop 04/16/16 at 08:50; Status DC Sennosides (Senna Liq) 8.8 mg DAILY TUBE Last administered on 01/15/16at 09:01 ; Start 12/27/15 at 17:00; Stop 01/15/16 at 20:37; Status DC Bisacodyl (Dulcolax Supp) 10 mg ONCE ONCE RECTAL ; Start 12/27/15 at 16:15; Stop 12/27/15 at 16:15; Status DC Albuterol/ Ipratropium (Duoneb Neb) 1 ampule Q4HR NEB PRN NEB RESPIRATORY DISTRESS Last administered on 12/29/15at 12:17; Start 12/27/15 at 22:00; Stop at 08:16; Status DC Bisacodyl (Dulcolax Supp) 10 mg ONCE ONCE RECTAL ; Start 12/28/15 at 12:00; Stop 12/28/15 at 12:01; Status DC Sodium Chloride (Sodium Chloride) 1 gm BID TUBE Last administered on 12/29/15at 09:02; Start 12/28/15 at 21:00; Stop 12/29/15 at 15:43; Status DC Lactulose (Lactulose Liq) 30 ml DAILY TUBE Last administered on 12/29/15at 09:02 ; Start 12/28/15 at 20:30; Stop 12/29/15 at 15:43; Status DC Levofloxacin (Levaquin) 750 mg DAILY@16 TUBE ; Start 12/29/15 at 16:00; Stop 05/05 at 16:00; Status DC Sodium Chloride (Sodium Chloride) 1 gm DAILY TUBE Last administered on at 07:29; Start 12/30/15 at 09:00; Stop 12/31/15 at 14:08; Status DC Water (Free Water) 200 ml Q6HR G-TUBE Last administered on 12/31/15at 04:19; Start 12/30/15 at 14:45; Stop 12/31/15 at 07:31; Status DC Ceftriaxone Sodium 1000 mg/ Sodium Chloride 100 ml @ 200 mls/hr Q12H IV Last administered on 01/03/16at 02:47; Start 12/30/15 at 15:00; Stop 01/03/16 at 10:09 ; Status DC Acetaminophen (Tylenol 650 Mg/ 20 ml Liq) 650 mg Q6H PRN TUBE TEMP >100.4 Last administered on 04/05/17t 21:31; Start 12/30/15 at 15:15 Lactobacillus Acidophilus (Lactinex Pkt) 1 gm BID TUBE Last administered on at 09:00; Start 12/30/15 at 21:00; Stop 02/10/16 at 14:30; Status DC Enoxaparin Sodium (Lovenox Inj) 90 mg Q12H SQ Last administered on 01/01/16at 21 :57; Start 12/31/15 at 08:00; Stop 01/03/16 at 10:33; Status DC Water (Free Water) 100 ml Q12H G-TUBE ; Start 12/31/15 at 18:00; Stop 12/31/15 at 18:00; Status DC Acetaminophen/ Hydrocodone Bitart (Calumet 5-325 Mg) 1 tab Q6H PRN PO PAIN Last administered on 05/26/16at 20:46; Start 12/31/15 at 15:00; Stop 06/02/16 at 21: 44; Status DC Fentanyl Citrate (Sublimaze Inj) 25 mcg Q1H PRN IV PUSH BREAKTHROUGH PAIN; Start 12/31/15 at 15:00; Stop 03/06/16 at 10:03; Status DC Water (Free Water) 200 ml Q8H G-TUBE Last administered on 01/01/16at 17:55; Start 12/31/15 at 18:00; Stop 01/02/16 at 09:56; Status DC Sodium Chloride (Sodium Chloride) 1 gm BID TUBE Last administered on 01/03/16at 07:39; Start 12/31/15 at 21:00; Stop 01/03/16 at 09:08; Status DC Miscellaneous Information Hold Anticoagulation after midni... ONCE ONCE OTHER ; Start 01/01/16 at 10:15; Stop 01/01/16 at 10:29; Status DC Sodium Chloride 1,000 ml @ 50 mls/hr Q20H IV Last administered on 01/02/16at 12 :26; Start 01/01/16 at 18:00; Stop 01/03/16 at 10:07; Status DC Midazolam HCl (Versed Inj) 5 mg STK-MED ONCE .ROUTE ; Start 01/02/16 at 12:47; Stop 01/02/16 at 12:48; Status DC Vecuronium Canalou (Norcuron 10 Mg Inj) 10 mg STK-MED ONCE .ROUTE ; Start at 12:47; Stop 01/02/16 at 12:48; Status DC Fentanyl Citrate (Sublimaze Inj) 250 mcg ONCE ONCE IV PUSH Last administered on 01/02/16at 15:00; Start 01/02/16 at 15:00; Stop 01/02/16 at 15:01; Status DC Midazolam HCl (Versed Inj) 10 mg ONCE ONCE IV PUSH Last administered on at 15:00; Start 01/02/16 at 15:00; Stop 01/02/16 at 15:01; Status DC Rocuronium Canalou (Zemuron Inj) 100 mg BOLUS ONCE IV Last administered on at 15:00; Start 01/02/16 at 15:00; Stop 01/02/16 at 15:01; Status DC Ketamine HCl (Ketalar Inj) 500 mg STK-MED ONCE .ROUTE ; Start 01/02/16 at 14:30 ; Stop 01/02/16 at 14:31; Status DC Propofol (Diprivan 200 Mg/20 ml Inj) 230 mg STK-MED ONCE IV ; Start 01/02/16 at 16:51; Stop 01/02/16 at 16:52; Status DC Sodium Chloride 1,000 ml @ 0 mls/hr Q0M IV ; Start 01/03/16 at 10:15; Stop at 17:30; Status DC Ranitidine HCl (Zantac Liq) 150 mg Q12HR PO Last administered on 01/17/16at 07: 39; Start 01/04/16 at 09:00; Stop 01/17/16 at 15:23; Status DC Enoxaparin Sodium (Lovenox Inj) 90 mg Q12HR SQ Last administered on 01/11/16at 10:01; Start 01/04/16 at 09:00; Stop 01/11/16 at 12:35; Status DC Sodium Chloride 500 ml @ 0 mls/hr BOLUS ONCE IV Last administered on at 22:57; Start 01/03/16 at 23:00; Stop 01/03/16 at 23:01; Status DC Insulin Aspart (NovoLOG SUPPLEMENTAL SCALE) 1 Q6HR SQ Last administered on at 12:00; Start 01/04/16 at 12:00; Stop 03/24/16 at 13:58; Status DC Potassium Chloride (KCl 40 Meq/30 ml Liq) 40 meq Q4H NG Last administered on at 16:21; Start 01/04/16 at 13:00; Stop 01/04/16 at 17:01; Status DC Warfarin Sodium (Coumadin) 5 mg DAILY@1600 PO Last administered on 01/09/16at 17 :21; Start 01/04/16 at 16:00; Stop 01/10/16 at 10:06; Status DC Pharmacy Profile Note 0 ml @ 0 mls/hr UNSCH XX ; Start 01/04/16 at 12:30; Stop 04/20/16 at 12:04; Status DC Insulin Detemir (Levemir Inj) 10 units Q12HR SQ Last administered on 01/05/16at 08:00; Start 01/04/16 at 21:00; Stop 01/05/16 at 08:42; Status DC Insulin Detemir (Levemir Inj) 5 units NOW ONCE SQ Last administered on at 13:28; Start 01/04/16 at 12:45; Stop 01/04/16 at 12:46; Status DC Albuterol/ Ipratropium (Duoneb Neb) 1 ampule Q4HR NEB PRN NEB dyspnea Last administered on 04/19/16at 02:24; Start 6/19/16 at 08:15; Stop 04/25/16 at 18:54 ; Status DC Warfarin Sodium (Coumadin) 7.5 mg ONCE ONCE PO Last administered on 01/07/16at 16:40; Start 01/07/16 at 16:00; Stop 01/07/16 at 16:01; Status DC Nystatin (Mycostatin Powder) 1 applic Q12HR TOPICAL Last administered on t 21:00; Start 01/08/16 at 21:00 Ipratropium Canalou (Atrovent Neb) 0.5 mg TID NEB NEB Last administered on 02/20at 13:17; Start 01/08/16 at 20:00; Stop 02/21/16 at 17:52; Status DC Warfarin Sodium (Coumadin) 5 mg DAILY@1600 PO Last administered on 01/11/16at 14 :26; Start 01/11/16 at 16:00; Stop 01/12/16 at 09:45; Status DC Warfarin Sodium (Coumadin) 6 mg ONCE PO Last administered on 01/10/16at 17:10; Start 01/10/16 at 16:00; Stop 01/10/16 at 21:00; Status DC Metoprolol Tartrate (Lopressor) 50 mg Q12HR GT Last administered on 01/11/16at 10:02; Start 01/10/16 at 11:00; Stop 01/11/16 at 12:30; Status DC Metoprolol Tartrate (Lopressor) 50 mg TID GT Last administered on 01/14/16at 08: 24; Start 01/11/16 at 13:00; Stop 01/14/16 at 08:28; Status DC Insulin Detemir (Levemir Inj) 10 units HS SQ Last administered on 01/11/16at 22: 23; Start 01/11/16 at 21:00; Stop 01/12/16 at 11:47; Status DC Warfarin Sodium (Coumadin) 4 mg DAILY@16 PO ; Start 01/12/16 at 16:00; Stop at 16:00; Status DC Insulin Detemir (Levemir Inj) 20 units HS SQ Last administered on 01/13/16at 20: 26; Start 01/12/16 at 21:00; Stop 01/14/16 at 08:28; Status DC Warfarin Sodium (Coumadin) 2 mg DAILY@16 PO Last administered on 01/13/16at 17: 05; Start 01/12/16 at 16:00; Stop 01/14/16 at 11:23; Status DC Insulin Detemir (Levemir Inj) 22 units HS SQ Last administered on 01/14/16at 21: 37; Start 01/14/16 at 21:00; Stop 01/15/16 at 10:06; Status DC Metoprolol Tartrate (Lopressor) 75 mg TID GT Last administered on 03/10/16at 17: 43; Start 01/14/16 at 09:00; Stop 03/10/16 at 21:13; Status DC Miscellaneous (Pill Splitter) 1 ea UNSCH PRN OTHER SEE LABEL COMMENTS; Start at 08:30 Warfarin Sodium (Coumadin) 4 mg DAILY@1600 PO Last administered on 01/21/16at 16: 51; Start 01/14/16 at 16:00; Stop 01/23/16 at 09:29; Status DC Patient Medication Teaching (Coumadin Booklet) 1 ONCE ONCE XX ; Start 01/14/16 at 16:00; Stop 01/14/16 at 16:01; Status DC Insulin Detemir (Levemir Inj) 24 units HS SQ Last administered on 03/04/16at 21: 09; Start 01/15/16 at 21:00; Stop 03/05/16 at 11:17; Status DC Citalopram Hydrobromide (CeleXA) 20 mg DAILY PEG Last administered on at 08:01; Start 01/16/16 at 09:00; Stop 01/16/16 at 09:41; Status DC Sennosides (Senna Liq) 8.8 mg BID TUBE Last administered on 02/20/16at 08:32; Start 01/15/16 at 21:00; Stop 02/20/16 at 16:13; Status DC Gadodiamide (Omniscan Pf Inj) 18 ml STK-MED ONCE IV ; Start 01/16/16 at 20:40; Stop 01/16/16 at 20:41; Status DC Sodium Chloride 1,000 ml @ 125 mls/hr Q8H IV Last administered on 01/17/16at 15 :11; Start 01/17/16 at 15:00; Stop 01/17/16 at 17:31; Status DC Ranitidine HCl (Zantac Liq) 150 mg Q24H PO Last administered on 07/28/16t 08:54 ; Start 01/18/16 at 09:00; Stop 07/30/16 at 10:05; Status DC Sodium Chloride 1,000 ml @ 75 mls/hr [id number] IV Last administered on at 05:22; Start 01/17/16 at 18:00; Stop 01/18/16 at 09:28; Status DC Sodium Chloride 38.5 meq/Sterile Water 1,009.625 ml @ 60 mls/hr [id number] IV Last administered on 01/21/16at 22:46; Start 01/18/16 at 11:00; Stop 01/22/16 at 10 :09; Status DC Potassium Chloride (KCl) 40 meq ONCE ONCE PO ; Start 01/18/16 at 09:30; Stop at 09:31; Status DC Potassium Chloride (KCl 40 Meq/30 ml Liq) 40 meq ONCE ONCE TUBE Last administered on 01/18/16at 11:08; Start 01/18/16 at 11:00; Stop 01/18/16 at 11:01 ; Status DC Water (Free Water) 300 ml Q4HR TUBE Last administered on 01/19/16at 08:00; Start 01/18/16 at 12:00; Stop 01/19/16 at 10:43; Status DC Water (Free Water) 400 ml Q4HR TUBE Last administered on 04/16/16at 04:00; Start 01/19/16 at 12:00; Stop 04/16/16 at 09:09; Status DC Potassium Chloride (KCl 40 Meq/30 ml Liq) 40 meq ONCE ONCE NG Last administered on 01/19/16at 11:41; Start 01/19/16 at 11:00; Stop 01/19/16 at 11:01; Status DC Potassium Chloride (KCl 40 Meq/30 ml Liq) 60 meq ONCE ONCE PO/TUBE Last administered on 01/21/16at 13:30; Start 01/21/16 at 11:15; Stop 01/21/16 at 11:27; Status DC Sodium Chloride 1,000 ml @ 30 mls/hr Q24H IV Last administered on 02/06/16at 11 :26; Start 01/22/16 at 11:00; Stop 02/07/16 at 14:49; Status DC Warfarin Sodium (Coumadin) 3 mg DAILY@16 PO Last administered on 01/23/16at 17:19 ; Start 01/23/16 at 16:00; Stop 01/24/16 at 14:05; Status DC Warfarin Sodium (Coumadin) 3 mg DAILY@16 PO Last administered on 01/25/16at 15:59 ; Start 01/25/16 at 16:00; Stop 01/26/16 at 15:04; Status DC Warfarin Sodium (Coumadin) 4 mg ONCE@1600 ONCE PO Last administered on at 16:55; Start 01/24/16 at 16:00; Stop 01/24/16 at 16:01; Status DC Warfarin Sodium (Coumadin) 3 mg DAILY@16 PO ; Start 01/27/16 at 16:00; Stop at 16:00; Status DC Warfarin Sodium (Coumadin) 4 mg ONCE@1600 ONCE PO Last administered on at 16:52; Start 01/26/16 at 16:00; Stop 01/26/16 at 16:01; Status DC Potassium Chloride (KCl 40 Meq/30 ml Liq) 80 meq ONCE ONCE PO Last administered on 01/27/16at 07:45; Start 01/27/16 at 07:45; Stop 01/27/16 at 08:10; Status DC Warfarin Sodium (Coumadin) 4 mg DAILY@16 PO Last administered on 02/02/16at 17: 22; Start 01/27/16 at 16:00; Stop 02/03/16 at 11:37; Status DC Acetic Acid (Acetic Acid 0.25% Irr Btl) 10 ml Q8HR IRRIGATION Last administered on 02/05/16at 06:00; Start 01/28/16 at 22:00; Stop 02/05/16 at 15:51 ; Status DC Warfarin Sodium (Coumadin) 3 mg DAILY@1600 PO Last administered on 02/11/16at 17 :34; Start 02/03/16 at 16:00; Stop 02/12/16 at 12:45; Status DC Ceftriaxone Sodium 1000 mg/ Sodium Chloride 100 ml @ 200 mls/hr Q24H IV Last administered on 02/10/16at 05:23; Start 02/05/16 at 06:30; Stop 02/10/16 at 14:32 ; Status DC Acetic Acid (Acetic Acid 0.25% Irr Btl) 10 ml Q8HR IRRIGATION ; Start 02/05/16 at 16:00; Status Cancel Acetic Acid (Acetic Acid 0.25% Irr Btl) 10 ml Q8HR IRRIGATION Last administered on 04/06/17t 05:01; Start 02/05/16 at 16:00 Lactobacillus Acidophilus (Lactinex) 1 tab Q12HR PO Last administered on at 08:25; Start 02/10/16 at 21:00; Stop 02/12/16 at 16:05; Status DC Warfarin Sodium (Coumadin) 4 mg DAILY@1600 PO Last administered on 02/14/16at 15 :56; Start 02/12/16 at 16:00; Stop 02/15/16 at 10:17; Status DC Paroxetine HCl (Paxil Liq) 20 mg DAILY PEG Last administered on 02/25/16at 07:33 ; Start 02/16/16 at 09:00; Stop 02/25/16 at 10:36; Status DC Warfarin Sodium (Coumadin) 3 mg DAILY@1600 PO Last administered on 02/19/16at 16: 42; Start 02/15/16 at 16:00; Stop 02/20/16 at 08:50; Status DC Warfarin Sodium (Coumadin) 4 mg DAILY@16 PO Last administered on 02/21/16at 15:54 ; Start 02/20/16 at 16:00; Stop 02/22/16 at 08:46; Status DC Sennosides (Senna Liq) 8.8 mg DAILY TUBE Last administered on 05/26/16at 08:14 ; Start 02/21/16 at 09:00; Stop 05/27/16 at 11:51; Status DC Albuterol Sulfate (Albuterol Neb) 2.5 mg QID NEB INH Last administered on at 19:51; Start 02/21/16 at 20:00; Stop 02/25/16 at 20:00; Status DC Acetylcysteine (Mucomyst 10% Neb) 1 ml QID NEB NEB Last administered on at 16:32; Start 02/21/16 at 20:00; Stop 02/23/16 at 16:01; Status DC Warfarin Sodium (Coumadin) 3 mg DAILY@16 PO Last administered on 02/22/16at 15:59 ; Start 02/22/16 at 16:00; Stop 02/23/16 at 08:56; Status DC Warfarin Sodium (Coumadin) 3 mg DAILY@16 PO Last administered on 02/28/16at 16: 17; Start 02/24/16 at 16:00; Stop 02/29/16 at 10:04; Status DC Warfarin Sodium (Coumadin) 2 mg ONCE PO Last administered on 02/23/16at 16:22; Start 02/23/16 at 16:00; Stop 02/23/16 at 21:00; Status DC Paroxetine HCl (Paxil Liq) 20 mg DAILY@1900 PEG Last administered on 03/08/16at 18:11; Start 02/26/16 at 19:00; Stop 03/09/16 at 11:31; Status DC Warfarin Sodium (Coumadin) 3 mg DAILY@16 PO Last administered on 03/06/16at 16: 22; Start 03/01/16 at 16:00; Stop 03/09/16 at 10:30; Status DC Warfarin Sodium (Coumadin) 1 mg ONCE PO Last administered on 02/29/16at 17:28; Start 02/29/16 at 16:00; Stop 02/29/16 at 21:00; Status DC Insulin Detemir (Levemir Inj) 27 units HS SQ Last administered on 03/05/16at 20: 25; Start 03/05/16 at 21:00; Stop 03/06/16 at 10:03; Status DC Patient Medication Teaching (Coumadin Booklet) 1 ONCE ONCE XX Last administered on 03/05/16at 16:00; Start 03/05/16 at 16:00; Stop 03/05/16 at 16:01 ; Status DC Insulin Detemir (Levemir Inj) 30 units HS SQ Last administered on 03/21/16at 22: 32; Start 03/06/16 at 21:00; Stop 03/22/16 at 14:48; Status DC Trimethoprim/ Sulfamethoxazole (Bactrim 800-160 Mg/20 ml Liq) 20 ml Q12HR PO Last administered on 03/14/16at 08:01; Start 03/07/16 at 11:15; Stop 03/14/16 at 11:14; Status DC Lorazepam (Ativan Inj) 0.5 mg Q4H PRN IV PUSH seizures or agitation; Start at 23:00; Status Cancel Metronidazole (Flagyl) 500 mg Q8H PO Last administered on 03/14/16at 15:51; Start 03/08/16 at 17:00; Stop 03/14/16 at 23:00; Status DC Warfarin Sodium (Coumadin) 2 mg DAILY@16 PO Last administered on 03/09/16at 17: 20; Start 03/09/16 at 16:00; Stop 03/10/16 at 10:33; Status DC Paroxetine HCl (Paxil) 20 mg DAILY@1900 PEG Last administered on 03/11/16at 17: 55; Start 03/09/16 at 19:00; Stop 03/12/16 at 08:31; Status DC Warfarin Sodium (Coumadin) 3 mg DAILY@16 PO Last administered on 04/12/16at 15: 28; Start 03/10/16 at 16:00; Stop 04/12/16 at 16:39; Status DC Pharmacy Profile Note 0 ml @ 0 mls/hr UNSCH OTHER ; Start 03/10/16 at 14:15; Stop 03/18/16 at 11:33; Status DC Vancomycin HCl 1500 mg/Sodium Chloride 530 ml @ 265 mls/hr Q12H IV Last administered on 03/17/16at 16:26; Start 03/10/16 at 16:00; Stop 03/17/16 at 23:00 ; Status DC Miscellaneous Information SPECIFIC LAB TO BE ELISA... ONCE ONCE XX Last administered on 03/12/16at 04:45; Start 03/12/16 at 03:45; Stop 03/12/16 at 03:46 ; Status DC Metoprolol Tartrate (Lopressor) 75 mg Q8HR PO Last administered on 04/02/16at 13 :13; Start 03/10/16 at 22:00; Stop 04/02/16 at 17:31; Status DC Paroxetine HCl (Paxil Liq) 20 mg DAILY@1900 PEG Last administered on 04/05/17t 18:16; Start 03/12/16 at 19:00; Status Future hold Warfarin Sodium (Coumadin) 1 mg ONCE PO Last administered on 03/21/16at 16:24; Start 03/21/16 at 16:00; Stop 03/21/16 at 21:00; Status DC Warfarin Sodium (Coumadin) 1 mg ONCE PO Last administered on 03/22/16at 17:46; Start 03/22/16 at 16:00; Stop 03/22/16 at 21:00; Status DC Insulin Detemir (Levemir Inj) 32 units HS SQ Last administered on 03/22/16at 20: 18; Start 03/22/16 at 21:00; Stop 03/23/16 at 13:35; Status DC Diltiazem HCl (Cardizem Cd) 120 mg DAILY PO Last administered on 04/14/16at 07: 43; Start 03/22/16 at 16:00; Stop 04/14/16 at 14:39; Status DC Hyoscyamine Sulfate (Levsin Liq) 0.125 mg Q4H PRN PEG INCREASED SECRETIONS Last administered on 04/10/16at 08:05; Start 03/22/16 at 15:15; Stop 04/11/16 at 10:24; Status DC Warfarin Sodium (Coumadin) 2 mg ONCE ONCE PO Last administered on 03/23/16 17: 26; Start 03/23/16 at 16:00; Stop 03/23/16 at 16:01; Status DC Insulin Detemir (Levemir Inj) 34 units HS SQ Last administered on 03/23/16at 20: 01; Start 03/23/16 at 21:00; Stop 03/24/16 at 13:53; Status DC Insulin Detemir (Levemir Inj) 35 units HS SQ Last administered on 11/15/16t 22: 06; Start 03/24/16 at 21:00; Stop 01/09/17 at 15:46; Status DC Insulin Aspart (NovoLOG SUPPLEMENTAL SCALE) 1 ACHS SLIDING SCALE SQ Last administered on 04/16/16at 22:27; Start 03/24/16 at 16:00; Stop 04/19/16 at 17:19 ; Status DC Warfarin Sodium (Coumadin) 1 mg ONCE ONCE PO Last administered on 03/30/16at 16 :59; Start 03/30/16 at 16:00; Stop 03/30/16 at 16:01; Status DC Potassium Chloride (KCl 40 Meq/30 ml Liq) 40 meq ONCE ONCE NG Last administered on 03/31/16at 21:28; Start 03/31/16 at 18:30; Stop 03/31/16 at 18:31 ; Status DC Potassium Bicarb/ Potassium Chloride (K-Lyte Cl Eff) 25 meq ONCE ONCE PEG Last administered on 04/02/16at 12:01; Start 04/02/16 at 13:00; Stop 04/02/16 at 13:01; Status DC Metoprolol Tartrate (Lopressor) 75 mg BID PO Last administered on 05/28/16at 21: 03; Start 04/02/16 at 21:00; Stop 05/29/16 at 11:21; Status DC Potassium Bicarb/ Potassium Chloride (K-Lyte Cl Eff) 25 meq ONCE ONCE PEG Last administered on 04/04/16at 14:40; Start 04/04/16 at 12:30; Stop 04/04/16 at 12:31; Status DC Linezolid (Zyvox) 600 mg Q12HR PO Last administered on 04/16/16at 09:11; Start 04/05/16 at 15:00; Stop 04/16/16 at 12:00; Status DC Artificial Tears (Lacrilube Opht Oint) 1 applic Q12HR EACH EYE Last administered on 09/04/16 21:00; Start 04/10/16 at 11:00; Stop 09/05/16 at 14:38 ; Status DC Hyoscyamine Sulfate (Levsin) 0.25 mg Q4H PRN G-TUBE INCREASED SECRETIONS Last administered on 03/07/17 06:14; Start 04/11/16 at 10:30; Stop 03/07/17 at 07:56 ; Status DC Diatrizoate Meglum/ Diatrizoate Sod ( Gastroview Liq) 18 ml ONCE ONCE PO Last administered on 04/12/16at 16:45; Start 04/12/16 at 16:15; Stop 04/12/16 at 16:16; Status DC Warfarin Sodium (Coumadin) 3 mg DAILY@16 PO ; Start 04/13/16 at 16:00; Stop 05/27/16 at 11:51; Status DC Iohexol (Omnipaque 350 Inj) 98 ml STK-MED ONCE IV Last administered on at 21:01; Start 04/12/16 at 21:01; Stop 04/12/16 at 21:02; Status DC Diltiazem HCl (Cardizem Cd) 180 mg DAILY PO ; Start 04/15/16 at 09:00; Stop at 08:50; Status DC Ondansetron HCl (Zofran Inj) 4 mg Q6HR PRN IV PUSH nausea/vomiting Last administered on 03/16/17t 16:00; Start 04/14/16 at 19:45 Diltiazem HCl (Cardizem) 60 mg QID PO Last administered on 04/25/16at 17:26; Start 04/15/16 at 13:00; Stop 04/25/16 at 19:06; Status DC Sodium Chloride 500 ml @ 500 mls/hr BOLUS ONCE IV Last administered on at 09:15; Start 04/15/16 at 09:15; Stop 04/15/16 at 10:14; Status DC Potassium Chloride 10 meq/ Dextrose/Sodium Chloride 1,005 ml @ 100 mls/hr Q10H3M IV Last administered on 04/15/16at 21:03; Start 04/15/16 at 11:00; Stop 04/16/16 at 09:09; Status DC Enoxaparin Sodium (Lovenox Inj) 90 mg Q12H SQ Last administered on 04/16/16at 21 :12; Start 04/16/16 at 09:00; Stop 04/17/16 at 10:37; Status DC Water (Free Water) 200 ml Q4HR TUBE Last administered on 12/24/16 08:00; Start 04/16/16 at 12:00; Stop 12/24/16 at 10:34; Status DC Sodium Chloride 1,000 ml @ 84 mls/hr [id number] IV Last administered on at 08:38; Start 04/16/16 at 10:00; Stop 04/20/16 at 12:04; Status DC Ceftriaxone Sodium 2000 mg/ Sodium Chloride 100 ml @ 200 mls/hr Q24H IV Last administered on 05/02/16at 13:19; Start 04/16/16 at 12:00; Stop 05/03/16 at 12: 06; Status DC Acetaminophen/ Hydrocodone Bitart (Calumet 5-325 Mg) 1 tab Q6HR PEG Last administered on 09/17/16t 06:42; Start 04/18/16 at 18:00; Stop 09/17/16 at 09:17 ; Status DC Lactulose (Lactulose Liq) 30 ml NOW ONCE PEG Last administered on 04/19/16at 17 :21; Start 04/19/16 at 17:30; Stop 04/19/16 at 17:31; Status DC Lactulose (Lactulose Liq) 30 ml DAILY PEG Last administered on 05/26/16at 08:14 ; Start 04/20/16 at 09:00; Stop 05/27/16 at 11:39; Status DC Potassium Bicarb/ Potassium Chloride (K-Lyte Cl Eff) 50 meq ONCE ONCE PO Last administered on 04/20/16at 05:52; Start 04/20/16 at 05:45; Stop 04/20/16 at 05:46; Status DC Furosemide (Lasix Inj) 20 mg ONCE ONCE IV PUSH Last administered on 04/20/16at 17:35; Start 04/20/16 at 12:00; Stop 04/20/16 at 12:06; Status DC Insulin Aspart (NovoLOG SUPPLEMENTAL SCALE) 1 ACHS SLIDING SCALE SQ Last administered on 06/02/16at 12:10; Start 04/20/16 at 16:00; Stop 06/02/16 at 21: 44; Status DC Dextrose (D50w (Vial) Inj) 25 ml UNSCH PRN IV HYPOGLYCEMIA-SEE COMMENTS; Start 04/20/16 at 12:00; Stop 01/09/17 at 15:52; Status DC Glucagon (Glucagon Inj) 1 mg UNSCH PRN IM/SQ HYPOGLYCEMIA-SEE COMMENTS; Start 04/20/16 at 12:00; Stop 01/09/17 at 15:52; Status DC Lactobacillus Acidophilus (Lactinex) 1 tab Q12HR PEG Last administered on 06/06at 21:34; Start 04/22/16 at 09:00; Stop 06/07/16 at 09:32; Status DC Furosemide (Lasix Inj) 20 mg Q12H IV PUSH Last administered on 04/24/16at 08:52 ; Start 04/22/16 at 09:00; Stop 04/24/16 at 09:25; Status DC Potassium Bicarb/ Potassium Chloride (K-Lyte Cl Eff) 25 meq Q12HR TUBE Last administered on 05/27/16at 08:17; Start 04/22/16 at 09:00; Stop 05/27/16 at 11:51 ; Status DC Albumin Human (Albumin 25% Inj) 12.5 gm Q12H IV Last administered on 04/24/16at 08:46; Start 04/22/16 at 09:00; Stop 04/24/16 at 09:25; Status DC Furosemide (Lasix Inj) 20 mg DAILY IV PUSH Last administered on 05/08/16at 09: 01; Start 04/25/16 at 09:00; Stop 05/08/16 at 11:06; Status DC Albumin Human (Albumin 25% Inj) 12.5 gm DAILY IV Last administered on at 09:02; Start 04/25/16 at 10:00; Stop 05/08/16 at 11:06; Status DC Furosemide (Lasix Inj) 40 mg ONCE ONCE IV PUSH Last administered on 04/25/16at 18:15; Start 04/25/16 at 18:15; Stop 04/25/16 at 18:16; Status DC Albuterol/ Ipratropium (Duoneb Neb) 1 ampule Q6HR NEB NEB Last administered on 04/27/16at 15:52; Start 04/25/16 at 18:30; Stop 04/27/16 at 19:45; Status DC Ipratropium Canalou (Atrovent Neb) 0.5 mg Q6HR NEB NEB Last administered on at 16:51; Start 04/25/16 at 22:00; Stop 04/27/16 at 16:44; Status DC Levalbuterol HCl (Xopenex Neb) 0.31 mg Q4HR NEB NEB Last administered on at 23:48; Start 04/25/16 at 20:00; Stop 04/27/16 at 16:43; Status DC Levalbuterol HCl (Xopenex Neb) 0.31 mg Q2HR NEB PRN NEB SHORTNESS OF BREATH; Start 04/25/16 at 18:45; Stop 04/28/16 at 10:50; Status DC Diltiazem HCl (Cardizem) 90 mg QID PEG Last administered on 07/17/16at 09:27; Start 04/25/16 at 21:00; Stop 07/17/16 at 17:52; Status DC Diltiazem HCl (Cardizem) 30 mg NOW ONCE PEG Last administered on 04/25/16at 21: 36; Start 04/25/16 at 19:15; Stop 04/25/16 at 19:16; Status DC Levalbuterol HCl (Xopenex Neb) 0.31 mg Q8HR NEB NEB ; Start 04/28/16 at 00:00; Stop 04/28/16 at 10:50; Status DC Levalbuterol HCl (Xopenex Neb) 0.63 mg Q4HR NEB PRN NEB SHORTNESS OF BREATH Last administered on 05/04/16at 15:26; Start 04/28/16 at 11:00; Stop 05/04/16 at 00:51; Status DC Levalbuterol HCl (Xopenex Neb) 0.63 mg Q8HR NEB NEB Last administered on 05/04at 00:07; Start 04/28/16 at 16:00; Stop 05/04/16 at 00:50; Status DC Polyethylene Glycol/ Electrolytes (Colyte Liq) 4,000 ml ONCE ONCE PO Last administered on 05/05/16at 08:10; Start 05/05/16 at 08:45; Stop 05/05/16 at 08 :46; Status DC Cefazolin Sodium/ Dextrose 50 ml @ 100 mls/hr ONCE ONCE IV ; Start 05/06/16 at 14:00; Stop 05/06/16 at 14:29; Status DC Metronidazole 100 ml @ 100 mls/hr ONCE ONCE IV Last administered on at 14:00; Start 05/06/16 at 14:00; Stop 05/06/16 at 14:59; Status DC Ceftriaxone Sodium 2000 mg/ Sodium Chloride 100 ml @ 200 mls/hr Q24H IV Last administered on 06/09/16at 12:36; Start 05/03/16 at 12:00; Stop 06/10/16 at 12 :48; Status DC Levalbuterol HCl (Xopenex Neb) 0.63 mg Q8HR NEB NEB Last administered on 05/05at 08:00; Start 05/04/16 at 00:49; Stop 05/05/16 at 08:07; Status DC Levalbuterol HCl (Xopenex Neb) 0.63 mg Q4HR NEB PRN NEB SHORTNESS OF BREATH Last administered on 03/30/17 21:58; Start 05/05/16 at 12:00 Levalbuterol HCl (Xopenex Neb) 0.63 mg Q8HR NEB NEB Last administered on 05/08at 23:56; Start 05/05/16 at 08:15; Stop 05/09/16 at 08:15; Status DC Potassium Bicarb/ Potassium Chloride (K-Lyte Cl Eff) 25 meq DAILY TUBE Last administered on 01/09/17 08:12; Start 05/28/16 at 09:00; Stop 01/09/17 at 15:46 ; Status DC Aspirin (Aspirin) 325 mg DAILY TUBE Last administered on 04/06/17 07:53; Start 05/27/16 at 11:40; Status Future hold Docusate Sodium (Colace Liq) 100 mg DAILY PRN PO constipation Last administered on 08/16/16 21:09; Start 05/27/16 at 11:45; Stop 08/31/16 at 09:00 ; Status DC Metoprolol Tartrate (Lopressor) 50 mg BID PO Last administered on 08/23/16 09: 03; Start 05/29/16 at 21:00; Stop 08/23/16 at 15:33; Status DC Acetaminophen/ Hydrocodone Bitart (Calumet 5-325 Mg) 1 tab Q6H PRN TUBE BREAKTHROUGH PAIN Last administered on 08/02/16 15:11; Start 06/03/16 at 03:00 ; Stop 09/17/16 at 14:33; Status DC Insulin Aspart (NovoLOG SUPPLEMENTAL SCALE) 1 ACHS SLIDING SCALE SQ Last administered on 06/06/16at 21:35; Start 06/03/16 at 07:00; Stop 06/07/16 at 12 :24; Status DC Lactobacillus Acidophilus (Lactinex) 1 tab TID PEG Last administered on 09:13; Start 06/07/16 at 13:00; Stop 10/13/16 at 12:08; Status DC Insulin Aspart (NovoLOG SUPPLEMENTAL SCALE) 1 AC BREAKFAST SQ Last administered on 01/08/17 06:49; Start 06/08/16 at 07:00; Stop 01/09/17 at 15: 46; Status DC Ceftriaxone Sodium 2000 mg/ Sodium Chloride 100 ml @ 200 mls/hr Q24H IV Last administered on 07/28/16 12:19; Start 06/10/16 at 12:00; Stop 07/29/16 at 13:30 ; Status DC Heparin Sodium (Porcine) (Heparin Inj) 5,000 units Q12HR SQ Last administered on 06/11/16at 00:58; Start 06/10/16 at 14:15; Stop 06/11/16 at 06:21; Status DC Heparin Sodium (Porcine) (Heparin Inj) 5,000 units Q8HR SQ Last administered on 03/22/17 14:43; Start 06/11/16 at 14:00; Stop 03/22/17 at 18:52; Status DC Diltiazem HCl (Cardizem) 30 mg QID PEG Last administered on 08/16/16 08:31; Start 07/17/16 at 18:00; Stop 08/16/16 at 12:06; Status DC Bacitracin (Baciguent Oint) 1 applic BID TOP Last administered on 04/05/17 21: 00; Start 07/20/16 at 10:00 Lactated Ringer's 1,000 ml @ 30 mls/hr Q24H IV ; Start 07/21/16 at 17:45; Stop 08/14/16 at 12:08; Status DC Sodium Chloride 500 ml @ 30 mls/hr [id number] IV ; Start 07/21/16 at 17:45; Stop at 17:44; Status DC Insulin Human Regular (NovoLIN R INJ) See Protocol Table ... UNSCH X1 PRN SQ SEE PROTOCOL; Start 07/21/16 at 17:45; Stop 07/22/16 at 17:44; Status DC Metoprolol Tartrate (Lopressor) 25 mg UNSCH X1 PRN PO SEE LABEL COMMENTS; Start 07/21/16 at 17:45; Stop 07/22/16 at 17:44; Status DC Lidocaine/ Epinephrine (Xylocaine-Epi 1%-1:100,000 Inj) 40 ml STK-MED ONCE .ROUTE Last administered on 07/22/16 10:56; Start 07/22/16 at 10:04; Stop at 10:05; Status DC Ketamine HCl (Ketalar Inj) 500 mg STK-MED ONCE .ROUTE ; Start 07/22/16 at 10:50; Stop 07/22/16 at 10:51; Status DC Propofol (Diprivan 200 Mg/20 ml Inj) 600 mg STK-MED ONCE IV ; Start 07/22/16 at 12:00; Stop 07/23/16 at 14:36; Status DC Dextrose 1,000 ml @ 40 mls/hr Q24H ONCE IV Last administered on 07/28/16 14:33 ; Start 07/28/16 at 14:00; Stop 07/29/16 at 13:59; Status DC Ampicillin Sodium/ Sulbactam Sodium 3 gm/Sodium Chloride 100 ml @ 200 mls/hr Q6H IV Last administered on 08/01/16 12:30; Start 07/29/16 at 14:00; Stop 08/01 at 14:13; Status DC Ondansetron HCl (Zofran Inj) 4 mg ONCE ONCE IV PUSH Last administered on 02:46; Start 07/30/16 at 00:30; Stop 07/30/16 at 00:33; Status DC Lactated Ringer's 1,000 ml @ 30 mls/hr Q24H IV ; Start 07/30/16 at 06:00; Stop 08/14/16 at 12:09; Status DC Sodium Chloride 500 ml @ 30 mls/hr [id number] IV ; Start 07/30/16 at 06:00; Stop 07/31/16 at 05:59; Status DC Pantoprazole Sodium (Protonix Inj) 40 mg Q12H IV PUSH Last administered on 12:01; Start 07/30/16 at 10:15; Stop 01/26/17 at 18:02; Status DC Propofol (Diprivan 200 Mg/20 ml Inj) 200 mg STK-MED ONCE IV ; Start 07/30/16 at 09:41; Stop 07/30/16 at 10:19; Status DC Piperacillin Sod/ Tazobactam Sod 100 ml @ 200 mls/hr Q6H IV Last administered on 08/07/16 09:37; Start 08/01/16 at 16:00; Stop 08/07/16 at 16:10; Status DC Linezolid (Zyvox) 600 mg Q12HR PO Last administered on 08/22/16 09:10; Start at 21:00; Stop 08/22/16 at 15:55; Status DC Sodium Chloride (Metolius Angel Francitas) 1 spray BID NASAL Last administered on 08:27; Start 08/01/16 at 21:00 Metronidazole (Flagyl) 500 mg Q8H PO Last administered on 08/08/16 08:28; Start 08/07/16 at 16:00; Stop 08/08/16 at 16:10; Status DC Sodium Chloride 1,000 ml @ 42 mls/hr [id number] IV Last administered on 12:44; Start 08/14/16 at 12:00; Stop 08/15/16 at 10:56; Status DC Fentanyl Citrate (fentaNYL INJ) 250 mcg STK-MED ONCE .ROUTE Last administered on 08/14/16 15:36; Start 08/14/16 at 15:36; Stop 08/14/16 at 15:37; Status DC Iohexol (Omnipaque 350 Inj) 30 ml STK-MED ONCE G-TUBE Last administered on 08/14 15:45; Start 08/14/16 at 15:52; Stop 08/14/16 at 15:53; Status DC Diltiazem HCl (Cardizem) 30 mg QID PEG Last administered on 11/19/16 07:52; Start 08/16/16 at 13:00; Stop 11/19/16 at 17:31; Status DC Polyethylene Glycol (Miralax) 17 gm ONCE ONCE PEG Last administered on 11:32; Start 08/17/16 at 12:00; Stop 08/17/16 at 12:01; Status DC Amoxicillin (Trimox) 500 mg Q8HR PO Last administered on 11/19/16 13:20; Start 08/22/16 at 22:00; Stop 11/19/16 at 22:41; Status DC Cefepime HCl 1000 mg/Sodium Chloride 100 ml @ 200 mls/hr Q8H IV Last administered on 09/03/16 10:46; Start 08/23/16 at 16:00; Stop 09/03/16 at 15:02 ; Status DC Metoprolol Tartrate (Lopressor) 75 mg BID PO Last administered on 09/13/16 08: 42; Start 08/23/16 at 21:00; Stop 09/13/16 at 13:09; Status DC Docusate Sodium (Colace Liq) 100 mg BID PO Last administered on 12/25/16 09:20 ; Start 08/30/16 at 21:00; Stop 12/25/16 at 13:12; Status DC Sennosides (Senokot) 17.2 mg DAILY PO Last administered on 09/25/16 08:36; Start 08/30/16 at 14:00; Stop 09/25/16 at 16:09; Status DC Lactulose (Lactulose Liq) 30 ml DAILY PO Last administered on 11/20/16 08:03; Start 09/02/16 at 15:30; Stop 12/27/16 at 15:28; Status DC Artificial Tears (Tears Naturale Opth Soln) 1 drop BID EACH EYE Last administered on 04/06/17 08:27; Start 09/05/16 at 21:00 Midazolam HCl (Versed Inj) 2 mg STK-MED ONCE .ROUTE Last administered on 11:37; Start 09/09/16 at 11:37; Stop 09/09/16 at 11:38; Status DC Fentanyl Citrate (fentaNYL INJ) 100 mcg STK-MED ONCE .ROUTE Last administered on 09/09/16 11:38; Start 09/09/16 at 11:38; Stop 09/09/16 at 11:39; Status DC Iohexol (Omnipaque 350 Inj) 20 ml STK-MED ONCE G-TUBE Last administered on 09/09 11:50; Start 09/09/16 at 11:50; Stop 09/09/16 at 12:15; Status DC Metoprolol Tartrate (Lopressor) 50 mg BID PO Last administered on 11/19/16 07: 52; Start 09/13/16 at 21:00; Stop 11/19/16 at 17:31; Status DC Acetaminophen/ Hydrocodone Bitart (Calumet 5-325 Mg) 1 tab Q6H PEG ; Start at 11:00; Stop 09/17/16 at 14:25; Status DC Acetaminophen/ Hydrocodone Bitart ([place]umet 5-325 Mg) 1 tab DAILY@1600 PO ; Start 09/17/16 at 16:00; Stop 09/17/16 at 16:00; Status DC Morphine Sulfate (Morphine Inj) 1 mg Q24H PRN IV PUSH dressing change 30 min before Last administered on 10/22/16 02:00; Start 09/17/16 at 14:30 Acetaminophen/ Hydrocodone Bitart ([place]umet 5-325 Mg) 1 tab DAILY@0000 PO Last administered on 09/17/16 23:43; Start 09/18/16 at 00:00; Stop 09/20/16 at 12:46; Status DC Acetaminophen/ Hydrocodone Bitart ([place]umet 5-325 Mg) 1 tab Q8H PO Last administered on 10/13/16 13:38; Start 09/20/16 at 13:00; Stop 10/13/16 at 18:29 ; Status DC Ketoconazole (Nizoral 2% Cream) 1 applic Q12HR TOPICAL Last administered on 21:00; Start 09/24/16 at 21:00; Stop 01/02/17 at 13:03; Status DC Sennosides (Senna Liq) 8.8 mg DAILY@1600 PO Last administered on 11/12/16 16: 45; Start 09/25/16 at 17:00; Stop 12/27/16 at 15:28; Status DC Sodium Biphosphate/ Sodium Phosphate (Fleets Enema (Adult)) 133 ml UNSCH PRN [place] CONSTIPATION; Start 09/25/16 at 16:00; Status Cancel Bisacodyl (Dulcolax Supp) 10 mg DAILY PRN RECTAL SEVERE CONSTIPATION IF NOT PO Last administered on 12/08/16 09:17; Start 09/26/16 at 15:30 Bisacodyl (Dulcolax Supp) 10 mg ONCE ONCE RECTAL Last administered on 16:10; Start 09/26/16 at 15:30; Stop 09/26/16 at 15:31; Status DC Cyclobenzaprine HCl (Flexeril) 5 mg Q8H PO Last administered on 10/13/16 13:37 ; Start 10/13/16 at 12:15; Stop 10/13/16 at 18:27; Status DC Magnesium Hydroxide (Milk Of Magnesia Liq) 30 ml DAILY PRN PO constipation Last administered on 12/19/16 12:33; Start 10/13/16 at 14:30; Stop 12/27/16 at 15 :28; Status DC Acetaminophen/ Hydrocodone Bitart ([place]umet 5-325 Mg) 1 tab Q6H PRN PO PAIN SCALE 1 TO 10; Start 10/13/16 at 18:30; Stop 10/13/16 at 18:30; Status DC Acetaminophen/ Hydrocodone Bitart ([place]umet 5-325 Mg) 1 tab Q6H PRN PO PAIN SCALE 1 TO 10 Last administered on 12/22/16 18:42; Start 10/13/16 at 18:45; Stop 12/27/16 at 15:28; Status DC Cyclobenzaprine HCl (Flexeril) 5 mg HS PRN PO muscle relaxant Last administered on 10/22/16 21:17; Start 10/14/16 at 14:15; Stop 12/27/16 at 15:28; Status DC Fentanyl Citrate (fentaNYL INJ) 100 mcg STK-MED ONCE .ROUTE ; Start 10/23/16 at 16:51; Stop 10/23/16 at 16:52; Status DC Glycerin (Glycerin Adult Supp) 2 gm ONCE ONCE RECTAL Last administered on 15:29; Start 10/26/16 at 15:00; Stop 10/26/16 at 15:01; Status DC Nitrofurantoin Macrocrystals (Macrobid) 100 mg BIDPC PO Last administered on 09:36; Start 10/26/16 at 15:00; Stop 10/29/16 at 14:59; Status DC Sodium Chloride 1,000 ml @ 30 mls/hr Q24H IV Last administered on 11/28/16 06 :30; Start 11/17/16 at 14:15; Stop 11/28/16 at 19:38; Status DC Piperacillin Sod/ Tazobactam Sod 50 ml @ 100 mls/hr Q6H IV Last administered on 11/21/16 16:25; Start 11/17/16 at 16:00; Stop 11/21/16 at 16:38; Status DC Sodium Chloride 1,000 ml @ 999 mls/hr BOLUS ONCE IV ; Start 11/18/16 at 10:45; Stop 11/18/16 at 11:45; Status DC Iohexol (Omnipaque 350 Inj) 20 ml STK-MED ONCE G-TUBE ; Start 11/18/16 at 18:06; Stop 11/18/16 at 18:07; Status DC Diltiazem HCl (Cardizem) 30 mg Q12H PEG Last administered on 01/09/17 02:04; Start 11/20/16 at 01:00; Stop 01/09/17 at 15:45; Status DC Metoprolol Tartrate (Lopressor) 25 mg BID PO Last administered on 12/26/16 20: 34; Start 11/19/16 at 21:00; Stop 12/27/16 at 15:28; Status DC Loperamide HCl (Imodium Liq) 2 mg UNSCH PRN PO DIARRHEA; Start 11/20/16 at 15:30 ; Stop 11/20/16 at 15:30; Status DC Loperamide HCl (Imodium Liq) 2 mg Q6H PRN PO DIARRHEA Last administered on 02:04; Start 11/20/16 at 15:30; Stop 12/27/16 at 15:28; Status DC Aztreonam 2000 mg/ Sodium Chloride 100 ml @ 200 mls/hr Q6H IV Last administered on 11/28/16 12:25; Start 11/21/16 at 18:00; Stop 11/28/16 at 17:01 ; Status DC Acetylcysteine (Mucomyst 10% Neb) 2 ml Q6HR NEB PRN NEB Mucolysis Last administered on 11/23/16 10:08; Start 11/22/16 at 16:15; Stop 11/23/16 at 18:00; Status DC Acetylcysteine (Mucomyst 10% Neb) 2 ml Q8HR NEB NEB Last administered on 08:00; Start 11/23/16 at 18:00; Stop 11/27/16 at 18:00; Status DC Sodium Chloride 1,000 ml @ 125 mls/hr Q8H IV Last administered on 01/11/17 03 :35; Start 11/28/16 at 19:45; Stop 01/11/17 at 08:39; Status DC Acetylcysteine (Mucomyst 10% Neb) 2 ml Q4HR NEB PRN NEB Thick secretions. ; Start 11/28/16 at 23:30; Stop 12/02/16 at 23:30; Status DC Iodixanol (VISIPAQUE 320 INJ (Rad Spec)) 10 ml STK-MED ONCE J-TUBE Last administered on 12/04/16 18:12; Start 12/04/16 at 18:12; Stop 12/04/16 at 18:13 ; Status DC Iohexol (Omnipaque 350 Inj) 15 ml STK-MED ONCE .XX Last administered on 16:25; Start 12/20/16 at 16:25; Stop 12/20/16 at 16:26; Status DC Water (Free Water) 150 ml Q6HR TUBE Last administered on 01/01/17 05:06; Start 12/24/16 at 12:00; Stop 01/01/17 at 10:23; Status DC Magnesium Hydroxide (Milk Of Magnesia Liq) 30 ml DAILY PO Last administered on 12/26/16 09:08; Start 12/26/16 at 09:00; Stop 12/27/16 at 15:28; Status DC Acetaminophen/ Codeine Phosphate (Tylenol - Codeine 120-12 Liq) 5 ml Q4H PRN G- TUBE pain 2-10 Last administered on 03/31/17 05:50; Start 12/27/16 at 15:30 Cyclobenzaprine HCl (Flexeril) 5 mg HS PRN PEG muscle relaxant ; Start 12/27/16 at 15:30; Stop 02/13/17 at 08:51; Status DC Lactulose (Lactulose Liq) 30 ml DAILY PEG Last administered on 01/28/17 07:57 ; Start 12/28/16 at 09:00; Stop 01/29/17 at 17:48; Status DC Loperamide HCl (Imodium Liq) 2 mg Q6H PRN PEG DIARRHEA Last administered on 21:32; Start 12/27/16 at 15:30 Magnesium Hydroxide (Milk Of Magnesia Liq) 30 ml DAILY PRN PEG mild-moderate constipation Last administered on 02/11/17 08:46; Start 12/27/16 at 15:30 Magnesium Hydroxide (Milk Of Magnesia Liq) 30 ml DAILY PEG Last administered on 01/19/17 08:44; Start 12/28/16 at 09:00; Status Future Hold Metoprolol Tartrate (Lopressor) 25 mg BID PEG Last administered on 01/09/17 08 :13; Start 12/27/16 at 21:00; Stop 01/09/17 at 15:57; Status DC Sennosides (Senna Liq) 8.8 mg DAILY@1600 PEG Last administered on 03/24/17 17: 13; Start 12/27/16 at 16:00; Status Future Hold Lactulose (Lactulose Liq) 30 ml DAILY PRN PEG severe constipation ; Start at 15:30 Iohexol (Omnipaque 350 Inj) 15 ml STK-MED ONCE G-TUBE Last administered on 12/31 16:40; Start 12/31/16 at 16:50; Stop 12/31/16 at 16:51; Status DC Water (Free Water) 200 ml Q6HR TUBE Last administered on 01/09/17 12:00; Start 01/01/17 at 12:00; Stop 01/09/17 at 15:46; Status DC Propofol 100 ml @ As Directed STK-MED ONCE .ROUTE ; Start 01/09/17 at 15:06; Stop 01/09/17 at 15:07; Status DC Diltiazem HCl (Cardizem Inj) 25 mg STK-MED ONCE .ROUTE ; Start 01/09/17 at 15:39 ; Stop 01/09/17 at 15:40; Status DC Diltiazem HCl (Cardizem) 30 mg QID PEG Last administered on 03/28/17 12:52; Start 01/09/17 at 18:00; Stop 03/28/17 at 14:04; Status DC Diltiazem HCl (Cardizem Inj) 10 mg ONCE ONCE IV Last administered on 16:00; Start 01/09/17 at 16:00; Stop 01/09/17 at 16:01; Status DC Albuterol/ Ipratropium (Duoneb Neb) 1 ampule Q6HR NEB NEB Last administered on 01/13/17 15:12; Start 01/09/17 at 16:00; Stop 01/13/17 at 16:00; Status DC Dextrose (D50w (Vial) Inj) 50 ml UNSCH PRN IV HYPOGLYCEMIA-SEE COMMENTS; Start 01/09/17 at 16:00; Stop 03/28/17 at 14:08; Status DC Glucagon (Glucagon Inj) 1 mg UNSCH PRN OTHER HYPOGLYCEMIA-SEE COMMENTS; Start 01/09/17 at 16:00; Stop 03/28/17 at 14:08; Status DC Insulin Human Regular (NovoLIN R SUPPLEMENTAL SCALE) 1 Q6H SQ Last administered on 01/25/17 16:00; Start 01/09/17 at 16:00; Stop 01/26/17 at 18:01; Status DC Potassium Chloride 100 ml @ 50 mls/hr Q2H PRN IV For Potassium 2.8 - 3.2 mEq/L ; Start 01/09/17 at 16:00; Stop 01/28/17 at 11:54; Status DC Potassium Chloride 100 ml @ 50 mls/hr Q2H PRN IV For Potassium 2.8 - 3.2 mEq/L ; Start 01/09/17 at 16:00; Stop 01/28/17 at 11:54; Status DC Potassium Bicarb/ Potassium Chloride (K-Lyte Cl Eff) 50 meq UNSCH PRN PO For Potassium 3.3 - 3.5 mEq/L; Start 01/09/17 at 16:00; Stop 01/28/17 at 11:54; Status DC Potassium Chloride 100 ml @ 25 mls/hr UNSCH PRN IV For Potassium 3.3 - 3.5 mEq /L; Start 01/09/17 at 16:00; Stop 01/28/17 at 11:54; Status DC Potassium Chloride 100 ml @ 50 mls/hr Q2H PRN IV For Potassium 3.3 - 3.5 mEq/L ; Start 01/09/17 at 16:00; Stop 01/28/17 at 11:54; Status DC Magnesium Sulfate 4 gm/Sodium Chloride 100 ml @ 50 mls/hr UNSCH PRN IV For Magnesium 0.9 - 1.1 mg/dL; Start 01/09/17 at 16:00; Stop 01/28/17 at 11:54; Status DC Magnesium Oxide (Mag-Ox) 800 mg UNSCH PRN PO For Magnesium 1.2 - 1.6 mg/dL; Start 01/09/17 at 16:00; Stop 01/28/17 at 11:54; Status DC Magnesium Sulfate 2 gm/Sodium Chloride 100 ml @ 50 mls/hr UNSCH PRN IV For Magnesium 1.2 - 1.6 mg/dL; Start 01/09/17 at 16:00; Stop 01/28/17 at 11:54; Status DC Potassium Phosphate (K-Phos) 2,000 mg Q4H PRN PO For Phosphorus < 2.5 mg/dL; Start 01/09/17 at 16:00; Stop 01/28/17 at 11:54; Status DC Sodium Phosphate 30 mmol/Sodium Chloride 250 ml @ 42 mls/hr UNSCH PRN IV For Phosphorus < 2.5 mg/dL Last administered on 01/20/17 06:00; Start 01/09/17 at 16 :00; Stop 01/28/17 at 11:54; Status DC Potassium Phosphate (K-Phos) 2,000 mg UNSCH PRN PO/TUBE SEE LABEL COMMENTS; Start 01/09/17 at 16:00; Stop 01/28/17 at 11:54; Status DC Potassium Phosphate 30 mmol/ Sodium Chloride 260 ml @ 42 mls/hr UNSCH PRN IV SEE LABEL COMMENTS Last administered on 01/13/17 10:15; Start 01/09/17 at 16:00 ; Stop 01/28/17 at 11:54; Status DC Cefepime HCl 1000 mg/Sodium Chloride 100 ml @ 200 mls/hr Q8H IV Last administered on 01/13/17 15:20; Start 01/09/17 at 16:00; Stop 01/13/17 at 15:24 ; Status DC Vancomycin HCl 1000 mg/Sodium Chloride 250 ml @ 250 mls/hr Q12H IV ; Start at 16:00; Stop 01/09/17 at 16:22; Status DC Pharmacy Profile Note 0 ml @ 0 mls/hr UNSCH OTHER ; Start 01/09/17 at 16:00; Stop 01/13/17 at 10:54; Status DC Sodium Chloride 1,000 ml @ 999 mls/hr BOLUS ONCE IV Last administered on 01/09 16:15; Start 01/09/17 at 16:15; Stop 01/09/17 at 17:15; Status DC Vancomycin HCl 1250 mg/Sodium Chloride 262.5 ml @ 262.5 mls/ hr Q12H IV Last administered on 01/11/17 18:50; Start 01/09/17 at 18:00; Stop 01/11/17 at 19:03 ; Status DC Miscellaneous Information SPECIFIC LAB TO BE ELISA... ONCE ONCE .XX Last administered on 01/11/17 05:45; Start 01/11/17 at 05:45; Stop 01/11/17 at 05:46 ; Status DC Propofol 100 ml @ As Directed STK-MED ONCE .ROUTE Last administered on 17:18; Start 01/09/17 at 17:18; Stop 01/09/17 at 17:19; Status DC Iohexol (Omnipaque 350 Inj) 75 ml STK-MED ONCE IV Last administered on 18:11; Start 01/09/17 at 18:11; Stop 01/09/17 at 18:12; Status DC Propofol 100 ml @ 0 mls/hr TITRATE IV Last administered on 01/10/17 01:23; Start 01/09/17 at 21:00; Stop 01/10/17 at 07:23; Status DC Metronidazole 100 ml @ 100 mls/hr Q8H IV Last administered on 01/15/17 07:36 ; Start 01/10/17 at 01:00; Stop 01/15/17 at 15:03; Status DC Micafungin Sodium 150 mg/Sodium Chloride 100 ml @ 100 mls/hr Q24H IV Last administered on 01/13/17 02:40; Start 01/10/17 at 02:00; Stop 01/13/17 at 10:54 ; Status DC Sodium Chloride 1,000 ml @ 999 mls/hr BOLUS ONCE IV Last administered on 01/10 08:39; Start 01/10/17 at 07:30; Stop 01/10/17 at 08:30; Status DC Fentanyl Citrate 250 ml @ 0 mls/hr TITRATE IV Last administered on 01/10/17 08 :36; Start 01/10/17 at 07:30; Stop 01/20/17 at 07:02; Status DC Miscellaneous Information SPECIFIC LAB TO BE DRAWN:VANCO TROUGHRESCHEDU... ONCE ONCE .XX Last administered on 01/11/17 17:00; Start 01/11/17 at 17:45; Stop 01/11/17 at 17:46; Status DC Vancomycin HCl 1600 mg/Sodium Chloride 516 ml @ 250 mls/hr Q8H IV Last administered on 01/13/17 00:31; Start 01/12/17 at 00:00; Stop 01/13/17 at 10:55 ; Status DC Miscellaneous Information SPECIFIC LAB TO BE DRAWN:VANCO TROUGH DATE TO BE DR... ONCE ONCE .XX Last administered on 01/12/17 15:45; Start 01/12/17 at 15 :45; Stop 01/12/17 at 15:46; Status DC Etomidate (Amidate Inj) 20 mg STK-MED ONCE .ROUTE ; Start 01/13/17 at 07:34; Stop 01/13/17 at 07:35; Status DC Succinylcholine Chloride (Quelicin Inj) 200 mg STK-MED ONCE .ROUTE ; Start 01/13 at 07:34; Stop 01/13/17 at 07:35; Status DC Propofol 50 ml @ As Directed STK-MED ONCE .ROUTE ; Start 01/13/17 at 07:35; Stop 01/13/17 at 07:36; Status DC Cefepime HCl 2000 mg/Sodium Chloride 100 ml @ 200 mls/hr Q8H IV Last administered on 01/20/17 12:28; Start 01/13/17 at 20:00; Stop 01/20/17 at 16:55; Status DC Etomidate (Amidate Inj) 20 mg STK-MED ONCE .ROUTE ; Start 01/15/17 at 07:45; Stop 01/15/17 at 07:46; Status DC Succinylcholine Chloride (Quelicin Inj) 200 mg STK-MED ONCE .ROUTE ; Start 01/15 at 07:45; Stop 01/15/17 at 07:46; Status DC Piperacillin Sod/ Tazobactam Sod 100 ml @ 200 mls/hr Q6H IV Last administered on 01/27/17 05:07; Start 01/20/17 at 17:00; Stop 01/27/17 at 09:00; Status DC Sodium Chloride 1,000 ml @ 42 mls/hr [id number] IV Last administered on 01/25/17 11:53; Start 01/23/17 at 12:15; Stop 01/25/17 at 15:41; Status DC Iohexol (Omnipaque 350 Inj) 20 ml STK-MED ONCE .XX Last administered on 17:57; Start 01/24/17 at 17:57; Stop 01/24/17 at 17:58; Status DC Insulin Human Regular (NovoLIN R SUPPLEMENTAL SCALE) 1 Q6H SQ Last administered on 01/29/17 16:00; Start 01/26/17 at 22:00; Stop 01/30/17 at 09:47 ; Status DC Lansoprazole (Prevacid Odt) 30 mg BID NG Last administered on 04/06/17 07:52; Start 01/26/17 at 21:00 Lactobacillus Acidophilus (Lactinex Pkt) 1 gm TID G-TUBE Last administered on 08:05; Start 01/28/17 at 13:00; Stop 02/10/17 at 13:02; Status DC Arginine HCl (Ashish Powder) 1 pack BID G-TUBE Last administered on 03/19/17 09 :00; Start 02/10/17 at 21:00; Stop 03/19/17 at 15:18; Status DC Ferrous Sulfate (Ferrous Sulfate Liq) 300 mg DAILY PO Last administered on 04/06 07:53; Start 02/14/17 at 09:00 Ascorbic Acid (Vitamin C) 1,000 mg DAILY PO Last administered on 04/06/17 07: 53; Start 02/14/17 at 09:00 Iohexol (Omnipaque 350 Inj) 10 ml STK-MED ONCE G-TUBE Last administered on 03/10 21:07; Start 02/14/17 at 19:37; Stop 02/14/17 at 19:38; Status DC Sodium Chloride 500 ml @ 500 mls/hr BOLUS ONCE IV Last administered on 11:31; Start 02/18/17 at 10:45; Stop 02/18/17 at 11:44; Status DC Hyoscyamine Sulfate (Levsin) 0.25 mg BID PO Last administered on 02/25/17 08:27 ; Start 02/22/17 at 21:00; Stop 02/25/17 at 20:59; Status DC Ceftriaxone Sodium 1000 mg/ Sodium Chloride 100 ml @ 200 mls/hr Q24H IV Last administered on 02/23/17 21:15; Start 02/22/17 at 20:00; Stop 02/24/17 at 16:11; Status DC Cefepime HCl 1000 mg/Sodium Chloride 100 ml @ 200 mls/hr Q8H IV Last administered on 02/26/17 08:31; Start 02/24/17 at 17:00; Stop 02/26/17 at 08:58; Status DC Bacitracin (Bacitracin Oint Packet) 0.9 gm DAILY TOPICAL Last administered on 07:55; Start 02/25/17 at 09:00 Piperacillin Sod/ Tazobactam Sod 50 ml @ 100 mls/hr Q6H IV Last administered on 03/05/17 04:29; Start 02/26/17 at 11:00; Stop 03/05/17 at 10:59; Status DC Propofol (Diprivan 200 Mg/20 ml Inj) 150 mg STK-MED ONCE IV ; Start 02/26/17 at 11:32; Stop 02/26/17 at 12:22; Status DC Esmolol HCl (Brevibloc Bolus Inj) 10 mg STK-MED ONCE IV ; Start 02/26/17 at 11:32 ; Stop 02/26/17 at 12:22; Status DC Diatrizoate Meglum/ Diatrizoate Sod ( Gastroview Liq) 18 ml ONCE ONCE PO Last administered on 02/26/17 18:58; Start 02/26/17 at 17:30; Stop 02/26/17 at 17: 31; Status DC Iohexol (Omnipaque 350 Inj) 95 ml STK-MED ONCE IV Last administered on 02:31; Start 02/27/17 at 02:31; Stop 02/27/17 at 02:32; Status DC Sodium Chloride 1,000 ml @ 42 mls/hr [id number] IV Last administered on 00:07; Start 02/27/17 at 08:15; Stop 03/01/17 at 07:47; Status DC Morphine Sulfate (Morphine Inj) 1 mg NOW ONCE IV PUSH Last administered on 07:30; Start 02/28/17 at 07:30; Stop 02/28/17 at 07:31; Status DC Sodium Chloride 250 ml @ 15 mls/hr ONCE ONCE IV ; Start 02/28/17 at 09:30; Stop 03/01/17 at 02:13; Status DC Furosemide (Lasix Inj) 20 mg ONCE ONCE IV ; Start 02/28/17 at 10:00; Stop 02/28 at 10:01; Status DC Fentanyl Citrate (fentaNYL INJ) 250 mcg STK-MED ONCE .ROUTE ; Start 03/03/17 at 16:21; Stop 03/03/17 at 16:22; Status DC Miscellaneous Information ALL NURSING DEPARTME... UNSCH PRN .XX SEE LABEL COMMENTS; Start 03/03/17 at 16:07; Stop 03/04/17 at 16:06; Status DC Hyoscyamine Sulfate (Levsin) 0.25 mg Q4H G-TUBE Last administered on 03/09/17 09:45; Start 03/07/17 at 10:00; Stop 03/09/17 at 14:47; Status DC Albuterol/ Ipratropium (Duoneb Neb) 1 ampule Q4HR WHILE AWAKE NEB NEB Last administered on 03/11/17 08:36; Start 03/07/17 at 12:00; Stop 03/11/17 at 12:00 ; Status DC Hyoscyamine Sulfate (Levsin) 0.25 mg Q8H G-TUBE Last administered on 03/16/17 05:09; Start 03/09/17 at 22:00; Stop 03/16/17 at 10:01; Status DC Pharmacy Profile Note 0 ml @ 0 mls/hr UNSCH OTHER ; Start 03/10/17 at 09:00; Stop 03/15/17 at 15:12; Status DC Vancomycin HCl 1250 mg/Sodium Chloride 262.5 ml @ 262.5 mls/ hr Q12H IV ; Start 03/10/17 at 09:00; Status UNV Vancomycin HCl 1250 mg/Sodium Chloride 262.5 ml @ 250 mls/hr Q12H IV Last administered on 03/12/17 11:08; Start 03/10/17 at 11:00; Stop 03/13/17 at 12:51 ; Status DC Miscellaneous Information SPECIFIC LAB TO BE ELISA... ONCE ONCE .XX Last administered on 03/11/17 21:38; Start 03/11/17 at 22:45; Stop 03/11/17 at 22:46 ; Status DC Sodium Chloride 500 ml @ 500 mls/hr BOLUS ONCE IV Last administered on 10:45; Start 03/10/17 at 10:45; Stop 03/10/17 at 11:44; Status DC Iohexol (Omnipaque 350 Inj) 71 ml STK-MED ONCE IVCONTRAST ; Start 03/10/17 at 21 :04; Stop 03/10/17 at 21:05; Status DC Miscellaneous Information SPECIFIC LAB TO BE DRAWN:VANCOMYCIN TROUGH DATE TO... ONCE ONCE .XX Last administered on 03/12/17 10:45; Start 03/12/17 at 10:45; Stop 03/12/17 at 10:46; Status DC Vancomycin HCl 1500 mg/Sodium Chloride 515 ml @ 257.5 mls/ hr Q24H IV Last administered on 03/15/17 14:17; Start 03/13/17 at 15:00; Stop 03/15/17 at 15:12 ; Status DC Miscellaneous Information SPECIFIC LAB TO BE DRAWN:VANCOMYCIN TROUGH DATE TO... ONCE ONCE .XX ; Start 03/16/17 at 14:45; Stop 03/16/17 at 14:45; Status DC Gadodiamide (Omniscan Pf Inj) 16 ml STK-MED ONCE IV PUSH Last administered on 16:35; Start 03/14/17 at 16:35; Stop 03/14/17 at 16:36; Status DC Levofloxacin (Levaquin) 500 mg DAILY PO Last administered on 03/20/17 09:52; Start 03/15/17 at 16:00; Stop 03/20/17 at 10:15; Status DC Hyoscyamine Sulfate (Levsin) 0.25 mg Q4H G-TUBE Last administered on 03/18/17 09:11; Start 03/16/17 at 14:00; Stop 03/18/17 at 14:38; Status DC Hyoscyamine Sulfate (Levsin Liq) 0.125 mg ONCE ONCE PO Last administered on 11:00; Start 03/16/17 at 11:00; Stop 03/16/17 at 11:01; Status DC Guaifenesin/ Codeine Phosphate (Robitussin Ac 200-20 Mg/10 ml Liq) 10 ml ONCE ONCE PEG ; Start 03/16/17 at 15:45; Stop 03/16/17 at 15:46; Status DC Hyoscyamine Sulfate (Levsin) 0.25 mg Q8HR G-TUBE Last administered on 05:01; Start 03/18/17 at 22:00 Warfarin Sodium (Coumadin) 5 mg DAILY@1600 PO Last administered on 03/22/17 18: 48; Start 03/19/17 at 16:30; Stop 03/23/17 at 12:09; Status DC Pharmacy Profile Note 0 ml @ 0 mls/hr UNSCH OTHER ; Start 03/19/17 at 15:30 Sodium Chloride 1,000 ml @ 84 mls/hr [id number] IV Last administered on 03/24/17 06:18; Start 03/22/17 at 19:00; Stop 03/24/17 at 12:13; Status DC Warfarin Sodium (Coumadin) 4 mg DAILY@1600 PO Last administered on 03/23/17 14: 38; Start 03/23/17 at 16:00; Stop 03/25/17 at 10:39; Status DC Vancomycin HCl 1000 mg/Sodium Chloride 250 ml @ 250 mls/hr ONCE ONCE IV ; Start 03/24/17 at 12:15; Stop 03/24/17 at 12:50; Status DC Piperacillin Sod/ Tazobactam Sod 100 ml @ 200 mls/hr Q8H IV Last administered on 04/06/17 05:01; Start 03/24/17 at 14:00 Vancomycin HCl 1000 mg/Sodium Chloride 250 ml @ 250 mls/hr ONCE ONCE IV Last administered on 03/24/17 17:14; Start 03/24/17 at 15:00; Stop 03/24/17 at 15:59; Status DC Propofol (Diprivan 200 Mg/20 ml Inj) 200 mg STK-MED ONCE IV ; Start 03/03/17 at 12:00; Stop 03/25/17 at 08:35; Status DC Ondansetron HCl (Zofran Inj) 4 mg STK-MED ONCE IV PUSH ; Start 03/03/17 at 12:00 ; Stop 03/25/17 at 08:35; Status DC Warfarin Sodium (Coumadin) 3 mg DAILY@1600 PO Last administered on 03/26/17 14: 56; Start 03/25/17 at 16:00; Stop 03/28/17 at 09:45; Status DC Insulin Aspart (NovoLOG SUPPLEMENTAL SCALE) 1 ACHS SLIDING SCALE SQ Last administered on 04/06/17 08:00; Start 03/26/17 at 21:00 Dextrose (D50w (Vial) Inj) 50 ml UNSCH PRN IV PUSH HYPOGLYCEMIA - SEE COMMENTS ; Start 03/26/17 at 18:15 Glucagon (Glucagon Inj) 1 mg UNSCH PRN OTHER HYPOGLYCEMIA-SEE COMMENTS; Start 03/26/17 at 18:15 Insulin Detemir (Levemir Inj) 5 units Q12HR SQ Last administered on 03/28/17 07 :49; Start 03/27/17 at 21:00; Stop 03/28/17 at 11:01; Status DC Warfarin Sodium (Coumadin) 2 mg DAILY@1600 PO Last administered on 03/31/17 16 :14; Start 03/28/17 at 16:00; Stop 03/31/17 at 16:34; Status DC Insulin Detemir (Levemir Inj) 10 units Q12HR SQ Last administered on 04/06/17 07:54; Start 03/28/17 at 21:00 Diltiazem HCl (Cardizem) 60 mg QID PEG Last administered on 04/06/17 07:53; Start 03/28/17 at 18:00 Diltiazem HCl (Cardizem) 30 mg ONCE ONCE G-TUBE Last administered on 21:15; Start 03/30/17 at 21:15; Stop 03/30/17 at 21:16; Status DC Warfarin Sodium (Coumadin) 1 mg ONCE ONCE PO Last administered on 03/31/17 17 :54; Start 03/31/17 at 16:45; Stop 03/31/17 at 16:46; Status DC Warfarin Sodium (Coumadin) 3 mg DAILY@1600 PO Last administered on 04/03/17 15 :12; Start 04/01/17 at 16:00; Stop 04/03/17 at 16:43; Status DC Sodium Chloride 250 ml @ 250 mls/hr BOLUS ONCE IV Last administered on 13:29; Start 04/01/17 at 12:30; Stop 04/01/17 at 13:29; Status DC Sodium Chloride 1,000 ml @ 65 mls/hr [id number] IV Last administered on 03:53; Start 04/01/17 at 12:30 Sodium Chloride 250 ml @ 250 mls/hr BOLUS ONCE IV Last administered on 22:45; Start 04/01/17 at 22:45; Stop 04/01/17 at 23:44; Status DC Sodium Chloride 250 ml @ 15 mls/hr ONCE ONCE IV ; Start 04/02/17 at 10:45; Stop 04/03/17 at 03:24; Status DC Acetaminophen (Tylenol) 650 mg Q4H PRN PO SEE LABEL COMMENTS Last administered on 04/03/17 05:26; Start 04/02/17 at 10:45 Diphenhydramine HCl (Benadryl) 25 mg Q4H PRN PO SEE LABEL COMMENTS Last administered on 04/03/17 05:26; Start 04/02/17 at 10:45 Furosemide (Lasix Inj) 20 mg ONCE ONCE IV ; Start 04/02/17 at 10:45; Stop 04/02 at 11:18; Status DC Warfarin Sodium (Coumadin) 4 mg DAILY@1600 PO ; Start 04/04/17 at 16:00; Stop at 16:00; Status DC Warfarin Sodium (Coumadin) 1 mg ONCE ONCE PO Last administered on 04/03/17 17 :23; Start 04/03/17 at 16:45; Stop 04/03/17 at 16:46; Status DC Fluconazole (Diflucan) 200 mg DAILY PO Last administered on 04/06/17 07:53; Start 04/06/17 at 09:00 Warfarin Sodium (Coumadin) 2 mg ONCE ONCE PO ; Start 04/06/17 at 16:00; Stop at 16:01 Date of Insertion: Mar 03, 2017 A/P Problem List: (1) CVA (cerebral vascular accident) ICD Code: I63.9 - Cerebral infarction, unspecified Status: Acute (2) A-fib ICD Code: I48.91 - Unspecified atrial fibrillation Status: Chronic (3) DM (diabetes mellitus) ICD Code: E11.9 - Type 2 diabetes mellitus without complications Status: Chronic (4) Hyponatremia ICD Code: E87.1 - Hypo-osmolality and hyponatremia Status: Acute Assessment and Plan 60 year-old male with past medical history of paroxysmal A. fib, hypertension, stage III non-Hodgkin's lymphoma status post chemotherapy who came into the hospital with altered mental status. PEG tube site cellulitis - ID following, appreciate their assistance - wound culture positive for Kleb pneumo sensitive to Levaquin - SP treatment with IV Levaquin x 5 days however there is still purulence observed. Continue wound care. Reculture wound. - As per Wound care recommendations. Cleanse around PEG tube site with normal saline and apply drain sponge around tube secure tube and drain sponge with medifix tape change as needed. Please use skin prep before applying adhesives to skin. Continue. 03/23 purulent discharge observed from PEG site - re ordered wound culture and will reconsult ID. 03/24 ID reconsulted recommendations pending. Patient with low grade fever overnight with a tmax of 99.7. Will start on Iv broad spectrum antibiotics ( Vancomycin and Zosyn IV), check blood cultures, CXR and urinalysis 03/25 UA (+) with urine culture growing gram negative rods. Continue IV zosyn and fu ID recommendations. blood cultures negative. Consult infectious GI to asses PEG tube. 03/26 GI recommendations pending regarding PEG tube. Continue IV zosyn for now. 03/27 Continue antibiotics as per ID. Continue Zosyn, repeat cultures if febrile. 03/24 Urine culture is growing pseudomonas. 04/01 urine cx with no growth x 48hrs. 03/23 wound culture growing MDR pseudomonas. GI reconsulted however patient no seen yet. 03/25 BCX with no growth x 5 days. Fever -Patient continues to have fever. - uncertain source - white count 5.4 - Patient currently on Zosyn - ID following and started patient on can as all yesterday. - Blood cultures show no growth, CXR shows mild interstitial prominence. UA negative. Sputum cx growing Pseudomonas. Follow up on urine cx results wound culture positive for yeast species. -Pending repeat blood cultures. Pending CBC. If patient continues to spike fever or develops leukocytosis we will get a CT scan or MRI to evaluate the liver lesion better. CAREN - creatinine improved - avoid nephrotoxic agents - gentle IVF - Pending BMP from today. 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 - CT of the abdomen showed bladder mass right posteriorly with apparent extravesical extension and clot formation. - Urology spoke with family member, daughter, states that he's not recommending biopsy of the bladder mass. However daughter insisted on biopsy. Patient s/p cystoscopy and palliative transurethral resection of bladder tumor greater than 5 cm originating from right bladder wall performed by Dr. Sewell . 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 - Oncology following - appreciate their assistance. Family requesting aggressive therapy. CT chest negative for malignancy. MRI completed. Patient is not a candidate for chemotherapy. Family has decided on palliative XRT treatment and would like it to start MIGEL. Consult placed for radiation oncology. - Palliative care following, appreciate their assistance. - Continue to flush lopez catheter PRN. Monitor for recurrence of hematuria - Patient is currently undergoing radiation therapy. Monitor for side effects. - 03/28 Mild hematuria today, continue to monitor urine output or for side effects. Hold Coumadin for now until hematuria resolves. Resume Coumadin once hematuria resolves. - 03/29 Continues on Coumadin. No observed hematuria. - 04/02 Liver US shows small hypoechoic lesion in the right hepatic lobe that is not convincing for a cyst or other benign structure. A small metastatic lesion would be in the differential. Hepatomegaly. Sludge and small stones in the gallbladder. No evidence of cholecystitis or biliary obstruction. - 04/04 pinkish urine in bag. Will continue on Coumadin for now. Monitor H/ H closely. Monitor INR closely. Patient has completed / radiations treatments. 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 Intermittently tracks with eyes. - Continue Keppra 500mg BID for seizure prophylaxis. Keppra level 17.8. - PT/OT signed off as patient is unable to participate. - On Paxil 20 by mouth daily for depression. - On acetaminophen with codeine for pain scale of 2-10. - Morphine 1 mg every 24 hours when necessary for dressing change Chronic respiratory failure secondary to CVA - Status post tracheostomy. Continue pulmonary toilet and bronchodilators as needed. Continue trach care, suctioning. Increased secretions improved with scheduled Levsin. Decreased dosing of scheduled Levsin to q8h. - Pulmonary currently following, appreciate assistance. - Duo nebs every 4 hours while awake Atrial fibrillation, controlled Hypertension Dyslipidemia - Continue rate control with Cardizem and metoprolol. - [id number] score 4 - Echocardiogram in November 2015 shows preserved ejection fraction. - continue on Coumadin. Pharmacy to dose. Continue to monitor INR. - Continue aspirin - Continue on Cardizem 60mg QID History of non-Hodgkin's lymphoma - Status post brain biopsy on December 13 by neurosurgery. Pathology consistent with acute infarct without evidence of lymphoma. Diabetes mellitus Type 2 - Hemoglobin A1c is 5.5. - Fingersticks have been stable and were DC'd 02/01/17 - 03/24 Blood sugar uncontrolled - continue Accu-Cheks and SSI with insulin NovoLog. - 03/27 Blood sugar severely elevated in the 200's. continue SQ Levemir 5 units SQ BID. continue SSI with insulin Novolog. - 03/28 sugars still very elevated above the 200s. continue Levemir subcutaneously to 10 units subcutaneously twice a day. Continue SSI with insulin NovoLog. Continue to monitor Accu-Cheks. Decubitus ulcer stage IV - Status post wide excision of sacral skin and biopsy of the cavity lining with debridement on 07/22/16. - Continue pressure relief measures including turning and positioning. Continue to monitor. - Patient's family has declined a diverting colostomy. Previous Wound culture growing Klebsiella and Enterococcus Faecalis. Previously on Augmentin. - Wound care last saw patient on 03/14/17, no new recommendations continue packing with Betadine moistened rolled Janis and covered with ABD pad and paper tape to secure. - Morphine 1 mg every 24 hours when necessary for dressing change Protein calorie malnutrition Gastroesophageal reflux disease Gastric ulcer, reflux esophagitis Diarrhea, negative for C. difficile. Improved - EGD on 07/30/16 showed gastric ulcers. Continue on Prevacid 30 mg Q12. - G/J tube clogged, IR consulted to evaluate. Replaced on 02/25/17 - TF held 03/16 due to emesis. No recurrence. TF resumed yesterday - patient tolerating. Project Assistant consulted to assist with rate/needs. Per their recommendations, Rec increasing TF'ing 10ml/hr Q 6hr, as tolerated, to goal rate 55ml/hr. Rec to discontinue the Ashish r/t pt has received Ashish for Rec dosing of 4-weeks to promote new tissue growth. - Continue bowel regimen with hold parameters, Lactinex and Imodium. Klebsiella/Pseudomonas/staph aureus HCAP PSAE UTI - S/p Cefepime. Monitor for signs of infections. - strep pneumonia and Legionella urinary Ag is negative - C-diff PCR negative on 01/13 - 01/09 BC : Staph Epi, Urine cx: Pseudomonas, Sputum cx: Pseudomonas, kleb, Staph. - Patient was pancultured on 01/19 (Blood, sputum, urine) NGTD in urine and blood. Sputum + for pseudomonas. Likely colonization. - CXR 04/03/17 shows small lung volumes, mild interstitial prominence without focal infiltrate. Sputum cx pending. Hyponatremia - resolved Anemia - sp transfusion of 1 unit of PRBC on 03/24. Hemoglobin responded appropriately from 6.8 and 8.1. - Stool Hemoccult negative. - Continue to monitor cbc. - 04/01 Hemoglobin decr at 7.0. Transfuse for hemoglobin < 7. - 04/02 Hemoglobin 6.9, transfused 2units PRBCs. Good response with f/u hgb 9.0 - small amount of active bleeding from PEG site and sacral wound as well as pinkish urine in bag. Follow CBC closely. DVT prophylaxis: SCDs Discharge Planning pt to complete radiation therapy in house prior to be discharged to [facility] Problem Qualifiers (1) CVA (cerebral vascular accident): (2) DM (diabetes mellitus): Patsy Wilkes MD Apr 06, 2017 11:51
[2017-04-06 14:07] LABS: HEMATOCRIT 24.5 % (39.0-51.0); MEAN CELL VOLUME 75.3 FL (80.0-100.0); MEAN CORPUSCULAR HEMOGLOBIN 25.3 PG (27.0-34.0); MEAN CORPUSCULAR HGB CONC 33.6 % (32.0-36.0); PLATELET COUNT 75 TH/MM3 (150-450); RED BLOOD COUNT 3.26 MIL/MM3 (4.50-5.90); RED CELL DISTRIBUTION WIDTH 23.2 % (11.6-17.2); WHITE BLOOD COUNT 4.2 TH/MM3 (4.0-11.0)
[2017-04-06 14:09] LABS: REVIEW FLAG FINAL
[2017-04-06 14:34] LABS: BICARBONATE 24.5 MEQ/L (21.0-32.0); POTASSIUM 3.8 MEQ/L (3.5-5.1)
[2017-04-06] MEDS: PARoxetine HCL SUSP 20 MG/10 ML UDC PEG SCH (18:20)
[2017-04-06] MEDS: LOPERAMIDE HCL SOLN 2 MG/10 ML UDC PEG PRN (20:38)
[2017-04-07] VITALS: BP 143/72; PULSE 113; RESP 24; TEMP 100.4; O2SAT 98
[2017-04-07 04:00] VITALS: BP 139/76; PULSE 122; RESP 28; TEMP 101; O2SAT 94
[2017-04-07] MEDS: HYOSCYAMINE 0.125 MG TAB G-TUBE SCH ×3 (05:03→22:27)
[2017-04-07] MEDS: PIPERACIL-TAZO 4.5 GM PREMIX 100 ML IV SCH ×3 (05:04→22:05)
[2017-04-07] MEDS: ACETIC ACID 0.25% SOLN 1000 ML IRR BTL IRRIGATION SCH ×3 (05:04→22:32)
[2017-04-07 07:23] LABS: PROTHROMBIN TIME - PATIENT 18.1 SEC (9.8-11.6)
[2017-04-07 07:24] LABS: HEMATOCRIT 24.4 % (39.0-51.0); MEAN CELL VOLUME 75.4 FL (80.0-100.0); MEAN CORPUSCULAR HEMOGLOBIN 26.2 PG (27.0-34.0); MEAN CORPUSCULAR HGB CONC 34.8 % (32.0-36.0); PLATELET COUNT 77 TH/MM3 (150-450); RED BLOOD COUNT 3.23 MIL/MM3 (4.50-5.90); WHITE BLOOD COUNT 4.2 TH/MM3 (4.0-11.0)
[2017-04-07 07:25] LABS: INTERNATIONAL NORMALIZED RATIO 1.6 RATIO
[2017-04-07 07:35] LABS: REVIEW FLAG FINAL
[2017-04-07 07:54] LABS: BICARBONATE 24.7 MEQ/L (21.0-32.0); POTASSIUM 3.8 MEQ/L (3.5-5.1)
[2017-04-07 08:00] VITALS: BP 154/89; PULSE 134; RESP 44; TEMP 100.5; O2SAT 91
[2017-04-07] MEDS: ACETAMINOPHEN 325 MG TAB PO PRN (08:07)
[2017-04-07] MEDS: FERROUS SULFATE 300 MG /5ML UDC PO SCH (08:07)
[2017-04-07] MEDS: LANSOPRAZOLE SOLUTAB 30 MG TAB NG SCH ×2 (08:08→22:06)
[2017-04-07] MEDS: FLUCONAZOLE 200 MG TAB PO SCH (08:08)
[2017-04-07] MEDS: ASPIRIN 325 MG TAB TUBE SCH (08:08)
[2017-04-07] MEDS: ASCORBIC ACID 500 MG TAB PO SCH (08:08)
[2017-04-07] MEDS: DILTIAZEM HCL 30 MG TAB PEG SCH ×4 (08:08→22:06)
[2017-04-07] MEDS: BACITRACIN OINT 0.9 GM PKT TOPICAL SCH (08:14)
[2017-04-07] MEDS: ARTIFICIAL TEARS OPTH SOLN 15 ML BTL EACH EYE SCH ×2 (08:14→22:15)
[2017-04-07] MEDS: SODIUM CHLORIDE 0.65% NASAL SPRAY 45 ML BTL NASAL SCH ×2 (08:14→21:00)
[2017-04-07] MEDS: BACITRACIN TOP OINT 15 GM TUBE TOP SCH ×2 (08:14→22:15)
[2017-04-07] MEDS: NYSTATIN 100,000 U/GM PWD 15 GM BTL TOPICAL SCH ×2 (08:15→22:32)
[2017-04-07] MEDS: levETIRAcetam 500 MG/5 ML UDC TUBE SCH ×2 (08:15→22:07)
[2017-04-07] MEDS: INSULIN DETEMIR 100 UNITS/ML VIAL SQ SCH ×2 (08:24→22:27)
[2017-04-07] MEDS: INSULIN ASPART SUPPLEMENTAL SCALE SQ SCH ×4 (08:31→22:27)
[2017-04-07] MEDS: SODIUM CHLOR 0.9% 1000 ML INJ 1,000 ML IV SCH (10:41)
[2017-04-07 12:00] VITALS: BP 130/79; PULSE 122; RESP 27; TEMP 97.7; O2SAT 99
[2017-04-07 12:02] VITALS: O2SAT 94
--- NOTE | 2017-04-07 12:10 | HHI.PR ---
Subjective Remarks Follow-up for CVA and infection Patient continues have fevers. Next fever 101. Patient's nurse, , and mother at the bedside during the interview. Objective Vitals Vital Signs Date Time Temp Pulse Resp B/P (MAP) Pulse Ox O2 Delivery O2 Flow Rate FiO2 04/07/17 08:00 100.5 134 44 154/89 (110) 91 04/07/17 04:00 101.0 122 28 139/76 (97) 94 04/07/17 00:00 100.4 113 24 143/72 (95) 98 04/06/17 20:40 T-Piece 5.00 04/06/17 20:00 98.3 112 22 132/78 (96) 97 04/06/17 16:00 99.8 115 18 131/71 (91) 98 04/06/17 12:00 100.1 113 22 124/75 (91) 95 I/O 04/06/17 04/06/17 04/06/17 04/07/17 04/07/17 04/07/17 07:00 15:00 23:00 07:00 15:00 23:00 Intake Total 1836 ml 100 ml 1100 ml 817 ml 0 ml Output Total 500 ml 1070 ml 1050 ml Balance 1336 ml 100 ml 30 ml -233 ml 0 ml Intake Oral 0 ml 0 ml 0 ml 0 ml IV Total 1100 ml 100 ml 1100 ml 100 ml Tube Feeding 696 ml 657 ml Tube Irrigant 40 ml 60 ml Output Urine Total 500 ml 1070 ml 1050 ml # Bowel Movements 1 2 1 Result Diagram: 04/07/17 0655 04/07/17 0655 Objective Remarks Gen NAD CV RRR. no r//g Resp trach in place clear stalk station bilaterally abd soft NDNT PEG site shows mild skin breakdown at the insertion site with small amount of discharged at the site. 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 No purulent discharge noted. Procedures 07/22/2016 Wide excision of sacral skin wound, biopsy of the cavity lining and debridement. PEG removal and Gj tube placement 07/29/16 VAC changes- M-W-F 10/23/16, 11/18, 12/31- GJ tube replacement 01/02/16 PEG placement 01/02/16 tracheostomy 02/25/17 PEG replacement 03/03/17 Cystoscopy and palliative transurethral resection of bladder tumor greater than 5cm originating from the right bladder wall Medications and IVs Current Medications IV Flush (NS Flush) 2 ml UNSCH PRN IVF FLUSH AFTER USING IV ACCESS Last administered on 03/27/17t 07:40; Start 12/21/15 at 06:00 Ondansetron HCl (Zofran Inj) 4 mg STK-MED ONCE .ROUTE ; Start 12/21/15 at 06:22; Stop 12/21/15 at 06:23; Status DC Ondansetron HCl (Zofran Inj) 4 mg ONCE ONCE IV PUSH Last administered on at 06:43; Start 12/21/15 at 06:30; Stop 12/21/15 at 06:31; Status DC Diltiazem HCl (Cardizem Inj) 20 mg ONCE ONCE IV Last administered on 12/21/15at 06:42; Start 12/21/15 at 06:30; Stop 12/21/15 at 06:31; Status DC Diltiazem HCl 125 mg/Sodium Chloride 125 ml @ 0 mls/hr TITRATE IV Last administered on 12/21/15at 06:47; Start 12/21/15 at 06:30; Stop 12/21/15 at 13:00; Status DC Acetaminophen (Tylenol) 650 mg ONCE ONCE PO ; Start 12/21/15 at 06:45; Stop 12/20 at 06:46; Status DC Lorazepam (Ativan Inj) 1 mg ONCE ONCE IV PUSH Last administered on 12/21/15at 07 :22; Start 12/21/15 at 07:15; Stop 12/21/15 at 07:16; Status DC Etomidate (Amidate Inj) 40 mg STK-MED ONCE .ROUTE Last administered on at 08:17; Start 12/21/15 at 07:37; Stop 12/21/15 at 07:38; Status DC Succinylcholine Chloride (Quelicin Inj) 200 mg STK-MED ONCE .ROUTE Last administered on 12/21/15at 08:18; Start 12/21/15 at 07:37; Stop 12/21/15 at 07:38; Status DC Propofol 100 ml @ As Directed STK-MED ONCE .ROUTE Last administered on at 08:19; Start 12/21/15 at 07:46; Stop 12/21/15 at 07:47; Status DC Propofol (Diprivan 1000 Mg/100ml Inj) search Sets for Drip. NOW PRN IV SEDATION Last administered on 12/22/15at 06:25; Start 12/21/15 at 08:30; Stop 12/28 at 15:43; Status DC Gadodiamide (Omniscan Pf Inj) 18 ml STK-MED ONCE IV Last administered on at 10:11; Start 12/21/15 at 10:11; Stop 12/21/15 at 10:12; Status DC Pantoprazole Sodium (Protonix Inj) 40 mg DAILY IV Last administered on at 07:39; Start 12/21/15 at 13:00; Stop 01/03/16 at 10:10; Status DC Albuterol/ Ipratropium (Duoneb Neb) 1 ampule Q6HR NEB INH Last administered on 12/25/15at 07:51; Start 12/21/15 at 13:00; Stop 12/25/15 at 13:00; Status DC Miscellaneous Information 1 [id number] Last administered on 12/21/15at 13:00; Start 12/21/15 at 13:00; Stop 01/12/16 at 11:47; Status DC Chlorhexidine Gluconate (Chlorhexidine 2% Cloth) 3 pack Taper DAILY@04 TOP Last administered on 01/11/16at 04:10; Start 12/22/15 at 04:00; Stop 01/12/16 at 11:47; Status DC Chlorhexidine Gluconate (Chlorhexidine 2% Cloth) 3 pack UNSCH PRN TOP HYGIENIC CARE; Start 12/21/15 at 13:00; Stop 01/12/16 at 11:47; Status DC Sodium Chloride 1,000 ml @ 75 mls/hr [id number] IV Last administered on 12/22/15at 17:00; Start 12/21/15 at 13:00; Stop 12/22/15 at 19:01; Status DC Dextrose (D50w (Vial) Inj) 25 ml UNSCH PRN IV PUSH HYPOGLYCEMIA-SEE COMMENTS; Start 12/21/15 at 13:00; Stop 04/19/16 at 17:19; Status DC Glucagon (Glucagon Inj) 1 mg UNSCH PRN OTHER HYPOGLYCEMIA-SEE COMMENTS; Start 12/21/15 at 13:00; Stop 04/19/16 at 17:19; Status DC Insulin Human Regular (NovoLIN R SUPPLEMENTAL SCALE) 1 Q6H SQ Last administered on 01/04/16at 06:31; Start 12/21/15 at 13:00; Stop 01/04/16 at 10:05 ; Status DC Levetriacetam (Keppra) 500 mg Q12HR PO Last administered on 12/27/15at 09:00; Start 12/21/15 at 13:45; Stop 12/27/15 at 09:44; Status DC Heparin Sodium (Porcine) (Heparin Inj) 5,000 units BID SQ Last administered on 12/22/15at 20:52; Start 12/21/15 at 21:00; Stop 12/23/15 at 08:32; Status DC Warfarin Sodium (Coumadin) 7.5 mg ONCE ONCE PO Last administered on 12/21/15at 21:43; Start 12/21/15 at 21:00; Stop 12/21/15 at 21:01; Status DC Warfarin Sodium (Coumadin) 5 mg DAILY@16 PO Last administered on 12/23/15at 16:00 ; Start 12/22/15 at 16:00; Stop 12/26/15 at 09:29; Status DC Patient Medication Teaching (Coumadin Booklet) 1 ONCE ONCE XX Last administered on 12/21/15at 20:15; Start 12/21/15 at 20:15; Stop 12/21/15 at 20:16; Status DC Chlorhexidine Gluconate (Peridex 0.12% Liq) 15 ml BID@08,20 MT Last administered on 01/12/16at 08:00; Start 12/22/15 at 20:00; Stop 01/12/16 at 11:47 ; Status DC Gadodiamide (Omniscan Pf Inj) 20 ml STK-MED ONCE IV Last administered on at 09:55; Start 12/22/15 at 09:55; Stop 12/22/15 at 09:56; Status DC Pharmacy Profile Note ml @ 0 mls/hr UNSCH OTHER ; Start 12/22/15 at 11:00; Stop 12/22/15 at 19:43; Status DC Sodium Chloride 1,000 ml @ 50 mls/hr Q20H IV Last administered on 12/24/15at 20: 02; Start 12/22/15 at 18:44; Stop 12/25/15 at 11:52; Status DC Pharmacy Profile Note 0 ml @ 0 mls/hr UNSCH OTHER ; Start 12/22/15 at 19:45; Stop 01/04/16 at 12:25; Status DC Acetaminophen (Tylenol) 650 mg Q6H PRN PO TEMP > 100 Last administered on at 13:24; Start 12/23/15 at 02:45; Stop 12/30/15 at 15:04; Status DC Potassium Chloride 100 ml @ 50 mls/hr Q2H PRN IV For Potassium 2.8 - 3.2 mEq/L ; Start 12/23/15 at 08:30; Stop 01/09/16 at 11:14; Status DC Potassium Chloride 100 ml @ 50 mls/hr Q2H PRN IV For Potassium 2.8 - 3.2 mEq/L ; Start 12/23/15 at 08:30; Stop 01/09/16 at 11:14; Status DC Potassium Chloride (KCl 40 Meq/30 ml Liq) 40 meq UNSCH PRN PO/TUBE For Potassium 3.3 - 3.5 mEq/L; Start 12/23/15 at 08:30; Stop 01/09/16 at 11:14; Status DC Potassium Chloride 100 ml @ 25 mls/hr UNSCH PRN IV For Potassium 3.3 - 3.5 mEq /L; Start 12/23/15 at 08:30; Stop 01/09/16 at 11:14; Status DC Potassium Chloride 100 ml @ 50 mls/hr Q2H PRN IV For Potassium 3.3 - 3.5 mEq/L ; Start 12/23/15 at 08:30; Stop 01/09/16 at 11:14; Status DC Magnesium Sulfate 4 gm/Sodium Chloride 100 ml @ 50 mls/hr UNSCH PRN IV For Magnesium 0.9 - 1.1 mg/dL; Start 12/23/15 at 08:30; Stop 01/09/16 at 11:14; Status DC Magnesium Oxide (Mag-Ox) 800 mg UNSCH PRN PO For Magnesium 1.2 - 1.6 mg/dL; Start 12/23/15 at 08:30; Stop 01/09/16 at 11:14; Status DC Magnesium Sulfate 2 gm/Sodium Chloride 100 ml @ 50 mls/hr UNSCH PRN IV For Magnesium 1.2 - 1.6 mg/dL; Start 12/23/15 at 08:30; Stop 01/09/16 at 11:14; Status DC Potassium Phosphate (K-Phos) 2,000 mg Q4H PRN PO For Phosphorus < 2.5 mg/dL; Start 12/23/15 at 08:30; Stop 01/09/16 at 11:14; Status DC Sodium Phosphate 30 mmol/Sodium Chloride 250 ml @ 42 mls/hr UNSCH PRN IV For Phosphorus < 2.5 mg/dL; Start 12/23/15 at 08:30; Stop 01/09/16 at 11:14; Status DC Potassium Chloride (KCl 40 Meq/30 ml Liq) 40 meq UNSCH PRN PO/TUBE SEE LABEL COMMENTS; Start 12/23/15 at 08:30; Stop 01/09/16 at 11:14; Status DC Potassium Phosphate (K-Phos) 2,000 mg UNSCH PRN PO/TUBE SEE LABEL COMMENTS; Start 12/23/15 at 08:30; Stop 01/09/16 at 11:14; Status DC Potassium Phosphate 30 mmol/ Sodium Chloride 260 ml @ 42 mls/hr UNSCH PRN IV SEE LABEL COMMENTS; Start 12/23/15 at 08:30; Stop 01/09/16 at 11:14; Status DC Sodium Chloride 1,000 ml @ 75 mls/hr [id number] IV ; Start 12/23/15 at 08:30; Stop 12/23/15 at 08:30; Status DC Piperacillin Sod/ Tazobactam Sod 50 ml @ 100 mls/hr Q6H IV Last administered on 12/30/15at 10:02; Start 12/23/15 at 10:00; Stop 12/30/15 at 14:50; Status DC Vancomycin HCl 1000 mg/Sodium Chloride 250 ml @ 250 mls/hr Q12H IV Last administered on 12/29/15at 09:01; Start 12/24/15 at 08:45; Stop 12/29/15 at 15:33 ; Status DC Warfarin Sodium (Coumadin) 4 mg DAILY@16 PO Last administered on 12/28/15at 16:00 ; Start 12/26/15 at 16:00; Stop 01/04/16 at 12:25; Status DC Levetriacetam (Keppra Liq) 500 mg Q12HR TUBE Last administered on 04/07/17t 08 :15; Start 12/27/15 at 21:00 Docusate Sodium (Colace Liq) 100 mg Q12HR TUBE Last administered on 01/15/16at 09:01; Start 12/27/15 at 21:00; Stop 04/16/16 at 08:50; Status DC Sennosides (Senna Liq) 8.8 mg DAILY TUBE Last administered on 01/15/16at 09:01 ; Start 12/27/15 at 17:00; Stop 01/15/16 at 20:37; Status DC Bisacodyl (Dulcolax Supp) 10 mg ONCE ONCE RECTAL ; Start 12/27/15 at 16:15; Stop 12/27/15 at 16:15; Status DC Albuterol/ Ipratropium (Duoneb Neb) 1 ampule Q4HR NEB PRN NEB RESPIRATORY DISTRESS Last administered on 12/29/15at 12:17; Start 12/27/15 at 22:00; Stop at 08:16; Status DC Bisacodyl (Dulcolax Supp) 10 mg ONCE ONCE RECTAL ; Start 12/28/15 at 12:00; Stop 12/28/15 at 12:01; Status DC Sodium Chloride (Sodium Chloride) 1 gm BID TUBE Last administered on 12/29/15at 09:02; Start 12/28/15 at 21:00; Stop 12/29/15 at 15:43; Status DC Lactulose (Lactulose Liq) 30 ml DAILY TUBE Last administered on 12/29/15at 09:02 ; Start 12/28/15 at 20:30; Stop 12/29/15 at 15:43; Status DC Levofloxacin (Levaquin) 750 mg DAILY@16 TUBE ; Start 12/29/15 at 16:00; Stop 05/05 at 16:00; Status DC Sodium Chloride (Sodium Chloride) 1 gm DAILY TUBE Last administered on at 07:29; Start 12/30/15 at 09:00; Stop 12/31/15 at 14:08; Status DC Water (Free Water) 200 ml Q6HR G-TUBE Last administered on 12/31/15at 04:19; Start 12/30/15 at 14:45; Stop 12/31/15 at 07:31; Status DC Ceftriaxone Sodium 1000 mg/ Sodium Chloride 100 ml @ 200 mls/hr Q12H IV Last administered on 01/03/16at 02:47; Start 12/30/15 at 15:00; Stop 01/03/16 at 10:09 ; Status DC Acetaminophen (Tylenol 650 Mg/ 20 ml Liq) 650 mg Q6H PRN TUBE TEMP >100.4 Last administered on 04/05/17t 21:31; Start 12/30/15 at 15:15 Lactobacillus Acidophilus (Lactinex Pkt) 1 gm BID TUBE Last administered on at 09:00; Start 12/30/15 at 21:00; Stop 02/10/16 at 14:30; Status DC Enoxaparin Sodium (Lovenox Inj) 90 mg Q12H SQ Last administered on 01/01/16at 21 :57; Start 12/31/15 at 08:00; Stop 01/03/16 at 10:33; Status DC Water (Free Water) 100 ml Q12H G-TUBE ; Start 12/31/15 at 18:00; Stop 12/31/15 at 18:00; Status DC Acetaminophen/ Hydrocodone Bitart (Tenafly 5-325 Mg) 1 tab Q6H PRN PO PAIN Last administered on 05/26/16at 20:46; Start 12/31/15 at 15:00; Stop 06/02/16 at 21: 44; Status DC Fentanyl Citrate (Sublimaze Inj) 25 mcg Q1H PRN IV PUSH BREAKTHROUGH PAIN; Start 12/31/15 at 15:00; Stop 03/06/16 at 10:03; Status DC Water (Free Water) 200 ml Q8H G-TUBE Last administered on 01/01/16at 17:55; Start 12/31/15 at 18:00; Stop 01/02/16 at 09:56; Status DC Sodium Chloride (Sodium Chloride) 1 gm BID TUBE Last administered on 01/03/16at 07:39; Start 12/31/15 at 21:00; Stop 6/15/16 at 09:08; Status DC Miscellaneous Information Hold Anticoagulation after midni... ONCE ONCE OTHER ; Start 01/01/16 at 10:15; Stop 01/01/16 at 10:29; Status DC Sodium Chloride 1,000 ml @ 50 mls/hr Q20H IV Last administered on 01/02/16at 12 :26; Start 01/01/16 at 18:00; Stop 01/03/16 at 10:07; Status DC Midazolam HCl (Versed Inj) 5 mg STK-MED ONCE .ROUTE ; Start 01/02/16 at 12:47; Stop 01/02/16 at 12:48; Status DC Vecuronium [facility] (Norcuron 10 Mg Inj) 10 mg STK-MED ONCE .ROUTE ; Start at 12:47; Stop 01/02/16 at 12:48; Status DC Fentanyl Citrate (Sublimaze Inj) 250 mcg ONCE ONCE IV PUSH Last administered on 01/02/16at 15:00; Start 01/02/16 at 15:00; Stop 01/02/16 at 15:01; Status DC Midazolam HCl (Versed Inj) 10 mg ONCE ONCE IV PUSH Last administered on at 15:00; Start 01/02/16 at 15:00; Stop 01/02/16 at 15:01; Status DC Rocuronium [facility] (Zemuron Inj) 100 mg BOLUS ONCE IV Last administered on at 15:00; Start 01/02/16 at 15:00; Stop 01/02/16 at 15:01; Status DC Ketamine HCl (Ketalar Inj) 500 mg STK-MED ONCE .ROUTE ; Start 01/02/16 at 14:30 ; Stop 01/02/16 at 14:31; Status DC Propofol (Diprivan 200 Mg/20 ml Inj) 230 mg STK-MED ONCE IV ; Start 01/02/16 at 16:51; Stop 01/02/16 at 16:52; Status DC Sodium Chloride 1,000 ml @ 0 mls/hr Q0M IV ; Start 01/03/16 at 10:15; Stop at 17:30; Status DC Ranitidine HCl (Zantac Liq) 150 mg Q12HR PO Last administered on 01/17/16at 07: 39; Start 01/04/16 at 09:00; Stop 01/17/16 at 15:23; Status DC Enoxaparin Sodium (Lovenox Inj) 90 mg Q12HR SQ Last administered on 01/11/16at 10:01; Start 01/04/16 at 09:00; Stop 01/11/16 at 12:35; Status DC Sodium Chloride 500 ml @ 0 mls/hr BOLUS ONCE IV Last administered on at 22:57; Start 01/03/16 at 23:00; Stop 01/03/16 at 23:01; Status DC Insulin Aspart (NovoLOG SUPPLEMENTAL SCALE) 1 Q6HR SQ Last administered on at 12:00; Start 01/04/16 at 12:00; Stop 03/24/16 at 13:58; Status DC Potassium Chloride (KCl 40 Meq/30 ml Liq) 40 meq Q4H NG Last administered on at 16:21; Start 01/04/16 at 13:00; Stop 01/04/16 at 17:01; Status DC Warfarin Sodium (Coumadin) 5 mg DAILY@1600 PO Last administered on 01/09/16at 17 :21; Start 01/04/16 at 16:00; Stop 01/10/16 at 10:06; Status DC Pharmacy Profile Note 0 ml @ 0 mls/hr UNSCH XX ; Start 01/04/16 at 12:30; Stop 04/20/16 at 12:04; Status DC Insulin Detemir (Levemir Inj) 10 units Q12HR SQ Last administered on 01/05/16at 08:00; Start 01/04/16 at 21:00; Stop 01/05/16 at 08:42; Status DC Insulin Detemir (Levemir Inj) 5 units NOW ONCE SQ Last administered on at 13:28; Start 01/04/16 at 12:45; Stop 01/04/16 at 12:46; Status DC Albuterol/ Ipratropium (Duoneb Neb) 1 ampule Q4HR NEB PRN NEB dyspnea Last administered on 04/19/16at 02:24; Start 01/07/16 at 08:15; Stop 04/25/16 at 18:54 ; Status DC Warfarin Sodium (Coumadin) 7.5 mg ONCE ONCE PO Last administered on 01/07/16at 16:40; Start 01/07/16 at 16:00; Stop 01/07/16 at 16:01; Status DC Nystatin (Mycostatin Powder) 1 applic Q12HR TOPICAL Last administered on t 08:15; Start 01/08/16 at 21:00 Ipratropium [facility] (Atrovent Neb) 0.5 mg TID NEB NEB Last administered on 02/20at 13:17; Start 01/08/16 at 20:00; Stop 02/21/16 at 17:52; Status DC Warfarin Sodium (Coumadin) 5 mg DAILY@1600 PO Last administered on 01/11/16at 14 :26; Start 01/11/16 at 16:00; Stop 01/12/16 at 09:45; Status DC Warfarin Sodium (Coumadin) 6 mg ONCE PO Last administered on 01/10/16at 17:10; Start 01/10/16 at 16:00; Stop 01/10/16 at 21:00; Status DC Metoprolol Tartrate (Lopressor) 50 mg Q12HR GT Last administered on 01/11/16at 10:02; Start 01/10/16 at 11:00; Stop 01/11/16 at 12:30; Status DC Metoprolol Tartrate (Lopressor) 50 mg TID GT Last administered on 01/14/16at 08: 24; Start 01/11/16 at 13:00; Stop 01/14/16 at 08:28; Status DC Insulin Detemir (Levemir Inj) 10 units HS SQ Last administered on 01/11/16at 22: 23; Start 01/11/16 at 21:00; Stop 01/12/16 at 11:47; Status DC Warfarin Sodium (Coumadin) 4 mg DAILY@16 PO ; Start 01/12/16 at 16:00; Stop at 16:00; Status DC Insulin Detemir (Levemir Inj) 20 units HS SQ Last administered on 01/13/16at 20: 26; Start 01/12/16 at 21:00; Stop 01/14/16 at 08:28; Status DC Warfarin Sodium (Coumadin) 2 mg DAILY@16 PO Last administered on 01/13/16at 17: 05; Start 01/12/16 at 16:00; Stop 01/14/16 at 11:23; Status DC Insulin Detemir (Levemir Inj) 22 units HS SQ Last administered on 01/14/16at 21: 37; Start 01/14/16 at 21:00; Stop 01/15/16 at 10:06; Status DC Metoprolol Tartrate (Lopressor) 75 mg TID GT Last administered on 03/10/16at 17: 43; Start 01/14/16 at 09:00; Stop 03/10/16 at 21:13; Status DC Miscellaneous (Pill Splitter) 1 ea UNSCH PRN OTHER SEE LABEL COMMENTS; Start at 08:30 Warfarin Sodium (Coumadin) 4 mg DAILY@1600 PO Last administered on 01/21/16at 16: 51; Start 01/14/16 at 16:00; Stop 01/23/16 at 09:29; Status DC Patient Medication Teaching (Coumadin Booklet) 1 ONCE ONCE XX ; Start 01/14/16 at 16:00; Stop 01/14/16 at 16:01; Status DC Insulin Detemir (Levemir Inj) 24 units HS SQ Last administered on 03/04/16at 21: 09; Start 01/15/16 at 21:00; Stop 03/05/16 at 11:17; Status DC Citalopram Hydrobromide (CeleXA) 20 mg DAILY PEG Last administered on at 08:01; Start 01/16/16 at 09:00; Stop 01/16/16 at 09:41; Status DC Sennosides (Senna Liq) 8.8 mg BID TUBE Last administered on 02/20/16at 08:32; Start 01/15/16 at 21:00; Stop 02/20/16 at 16:13; Status DC Gadodiamide (Omniscan Pf Inj) 18 ml STK-MED ONCE IV ; Start 01/16/16 at 20:40; Stop 01/16/16 at 20:41; Status DC Sodium Chloride 1,000 ml @ 125 mls/hr Q8H IV Last administered on 01/17/16at 15 :11; Start 01/17/16 at 15:00; Stop 01/17/16 at 17:31; Status DC Ranitidine HCl (Zantac Liq) 150 mg Q24H PO Last administered on 1/8/17at 08:54 ; Start 01/18/16 at 09:00; Stop 07/30/16 at 10:05; Status DC Sodium Chloride 1,000 ml @ 75 mls/hr [id number] IV Last administered on at 05:22; Start 01/17/16 at 18:00; Stop 01/18/16 at 09:28; Status DC Sodium Chloride 38.5 meq/Sterile Water 1,009.625 ml @ 60 mls/hr [id number] IV Last administered on 01/21/16at 22:46; Start 01/18/16 at 11:00; Stop 01/22/16 at 10 :09; Status DC Potassium Chloride (KCl) 40 meq ONCE ONCE PO ; Start 01/18/16 at 09:30; Stop at 09:31; Status DC Potassium Chloride (KCl 40 Meq/30 ml Liq) 40 meq ONCE ONCE TUBE Last administered on 01/18/16at 11:08; Start 01/18/16 at 11:00; Stop 01/18/16 at 11:01 ; Status DC Water (Free Water) 300 ml Q4HR TUBE Last administered on 01/19/16at 08:00; Start 01/18/16 at 12:00; Stop 01/19/16 at 10:43; Status DC Water (Free Water) 400 ml Q4HR TUBE Last administered on 04/16/16at 04:00; Start 01/19/16 at 12:00; Stop 04/16/16 at 09:09; Status DC Potassium Chloride (KCl 40 Meq/30 ml Liq) 40 meq ONCE ONCE NG Last administered on 01/19/16at 11:41; Start 01/19/16 at 11:00; Stop 01/19/16 at 11:01; Status DC Potassium Chloride (KCl 40 Meq/30 ml Liq) 60 meq ONCE ONCE PO/TUBE Last administered on 01/21/16at 13:30; Start 01/21/16 at 11:15; Stop 01/21/16 at 11:27; Status DC Sodium Chloride 1,000 ml @ 30 mls/hr Q24H IV Last administered on 02/06/16at 11 :26; Start 01/22/16 at 11:00; Stop 02/07/16 at 14:49; Status DC Warfarin Sodium (Coumadin) 3 mg DAILY@16 PO Last administered on 01/23/16at 17:19 ; Start 01/23/16 at 16:00; Stop 01/24/16 at 14:05; Status DC Warfarin Sodium (Coumadin) 3 mg DAILY@16 PO Last administered on 01/25/16at 15:59 ; Start 01/25/16 at 16:00; Stop 01/26/16 at 15:04; Status DC Warfarin Sodium (Coumadin) 4 mg ONCE@1600 ONCE PO Last administered on at 16:55; Start 01/24/16 at 16:00; Stop 01/24/16 at 16:01; Status DC Warfarin Sodium (Coumadin) 3 mg DAILY@16 PO ; Start 01/27/16 at 16:00; Stop at 16:00; Status DC Warfarin Sodium (Coumadin) 4 mg ONCE@1600 ONCE PO Last administered on at 16:52; Start 01/26/16 at 16:00; Stop 01/26/16 at 16:01; Status DC Potassium Chloride (KCl 40 Meq/30 ml Liq) 80 meq ONCE ONCE PO Last administered on 01/27/16at 07:45; Start 01/27/16 at 07:45; Stop 01/27/16 at 08:10; Status DC Warfarin Sodium (Coumadin) 4 mg DAILY@16 PO Last administered on 02/02/16at 17: 22; Start 01/27/16 at 16:00; Stop 02/03/16 at 11:37; Status DC Acetic Acid (Acetic Acid 0.25% Irr Btl) 10 ml Q8HR IRRIGATION Last administered on 02/05/16at 06:00; Start 01/28/16 at 22:00; Stop 02/05/16 at 15:51 ; Status DC Warfarin Sodium (Coumadin) 3 mg DAILY@1600 PO Last administered on 02/11/16at 17 :34; Start 02/03/16 at 16:00; Stop 02/12/16 at 12:45; Status DC Ceftriaxone Sodium 1000 mg/ Sodium Chloride 100 ml @ 200 mls/hr Q24H IV Last administered on 02/10/16at 05:23; Start 02/05/16 at 06:30; Stop 02/10/16 at 14:32 ; Status DC Acetic Acid (Acetic Acid 0.25% Irr Btl) 10 ml Q8HR IRRIGATION ; Start 02/05/16 at 16:00; Status Cancel Acetic Acid (Acetic Acid 0.25% Irr Btl) 10 ml Q8HR IRRIGATION Last administered on 04/07/17t 05:04; Start 02/05/16 at 16:00 Lactobacillus Acidophilus (Lactinex) 1 tab Q12HR PO Last administered on at 08:25; Start 02/10/16 at 21:00; Stop 02/12/16 at 16:05; Status DC Warfarin Sodium (Coumadin) 4 mg DAILY@1600 PO Last administered on 02/14/16at 15 :56; Start 02/12/16 at 16:00; Stop 02/15/16 at 10:17; Status DC Paroxetine HCl (Paxil Liq) 20 mg DAILY PEG Last administered on 02/25/16at 07:33 ; Start 02/16/16 at 09:00; Stop 02/25/16 at 10:36; Status DC Warfarin Sodium (Coumadin) 3 mg DAILY@1600 PO Last administered on 02/19/16at 16: 42; Start 02/15/16 at 16:00; Stop 02/20/16 at 08:50; Status DC Warfarin Sodium (Coumadin) 4 mg DAILY@16 PO Last administered on 02/21/16at 15:54 ; Start 02/20/16 at 16:00; Stop 02/22/16 at 08:46; Status DC Sennosides (Senna Liq) 8.8 mg DAILY TUBE Last administered on 05/26/16at 08:14 ; Start 02/21/16 at 09:00; Stop 05/27/16 at 11:51; Status DC Albuterol Sulfate (Albuterol Neb) 2.5 mg QID NEB INH Last administered on at 19:51; Start 02/21/16 at 20:00; Stop 02/25/16 at 20:00; Status DC Acetylcysteine (Mucomyst 10% Neb) 1 ml QID NEB NEB Last administered on at 16:32; Start 02/21/16 at 20:00; Stop 02/23/16 at 16:01; Status DC Warfarin Sodium (Coumadin) 3 mg DAILY@16 PO Last administered on 02/22/16at 15:59 ; Start 02/22/16 at 16:00; Stop 02/23/16 at 08:56; Status DC Warfarin Sodium (Coumadin) 3 mg DAILY@16 PO Last administered on 02/28/16at 16: 17; Start 02/24/16 at 16:00; Stop 02/29/16 at 10:04; Status DC Warfarin Sodium (Coumadin) 2 mg ONCE PO Last administered on 02/23/16at 16:22; Start 02/23/16 at 16:00; Stop 02/23/16 at 21:00; Status DC Paroxetine HCl (Paxil Liq) 20 mg DAILY@1900 PEG Last administered on 03/08/16at 18:11; Start 02/26/16 at 19:00; Stop 03/09/16 at 11:31; Status DC Warfarin Sodium (Coumadin) 3 mg DAILY@16 PO Last administered on 03/06/16at 16: 22; Start 03/01/16 at 16:00; Stop 03/09/16 at 10:30; Status DC Warfarin Sodium (Coumadin) 1 mg ONCE PO Last administered on 02/29/16at 17:28; Start 02/29/16 at 16:00; Stop 02/29/16 at 21:00; Status DC Insulin Detemir (Levemir Inj) 27 units HS SQ Last administered on 03/05/16at 20: 25; Start 03/05/16 at 21:00; Stop 03/06/16 at 10:03; Status DC Patient Medication Teaching (Coumadin Booklet) 1 ONCE ONCE XX Last administered on 03/05/16at 16:00; Start 03/05/16 at 16:00; Stop 03/05/16 at 16:01 ; Status DC Insulin Detemir (Levemir Inj) 30 units HS SQ Last administered on 03/21/16at 22: 32; Start 03/06/16 at 21:00; Stop 03/22/16 at 14:48; Status DC Trimethoprim/ Sulfamethoxazole (Bactrim 800-160 Mg/20 ml Liq) 20 ml Q12HR PO Last administered on 03/14/16at 08:01; Start 03/07/16 at 11:15; Stop 03/14/16 at 11:14; Status DC Lorazepam (Ativan Inj) 0.5 mg Q4H PRN IV PUSH seizures or agitation; Start at 23:00; Status Cancel Metronidazole (Flagyl) 500 mg Q8H PO Last administered on 03/14/16at 15:51; Start 03/08/16 at 17:00; Stop 03/14/16 at 23:00; Status DC Warfarin Sodium (Coumadin) 2 mg DAILY@16 PO Last administered on 03/09/16at 17: 20; Start 03/09/16 at 16:00; Stop 03/10/16 at 10:33; Status DC Paroxetine HCl (Paxil) 20 mg DAILY@1900 PEG Last administered on 03/11/16at 17: 55; Start 03/09/16 at 19:00; Stop 03/12/16 at 08:31; Status DC Warfarin Sodium (Coumadin) 3 mg DAILY@16 PO Last administered on 04/12/16at 15: 28; Start 03/10/16 at 16:00; Stop 04/12/16 at 16:39; Status DC Pharmacy Profile Note 0 ml @ 0 mls/hr UNSCH OTHER ; Start 03/10/16 at 14:15; Stop 03/18/16 at 11:33; Status DC Vancomycin HCl 1500 mg/Sodium Chloride 530 ml @ 265 mls/hr Q12H IV Last administered on 03/17/16at 16:26; Start 03/10/16 at 16:00; Stop 03/17/16 at 23:00 ; Status DC Miscellaneous Information SPECIFIC LAB TO BE ... ONCE ONCE XX Last administered on 03/12/16at 04:45; Start 03/12/16 at 03:45; Stop 03/12/16 at 03:46 ; Status DC Metoprolol Tartrate (Lopressor) 75 mg Q8HR PO Last administered on 04/02/16at 13 :13; Start 03/10/16 at 22:00; Stop 04/02/16 at 17:31; Status DC Paroxetine HCl (Paxil Liq) 20 mg DAILY@1900 PEG Last administered on 04/06/17t 18:20; Start 03/12/16 at 19:00; Status Future hold Warfarin Sodium (Coumadin) 1 mg ONCE PO Last administered on 03/21/16at 16:24; Start 03/21/16 at 16:00; Stop 03/21/16 at 21:00; Status DC Warfarin Sodium (Coumadin) 1 mg ONCE PO Last administered on 03/22/16at 17:46; Start 03/22/16 at 16:00; Stop 03/22/16 at 21:00; Status DC Insulin Detemir (Levemir Inj) 32 units HS SQ Last administered on 03/22/16at 20: 18; Start 03/22/16 at 21:00; Stop 03/23/16 at 13:35; Status DC Diltiazem HCl (Cardizem Cd) 120 mg DAILY PO Last administered on 04/14/16at 07: 43; Start 03/22/16 at 16:00; Stop 04/14/16 at 14:39; Status DC Hyoscyamine Sulfate (Levsin Liq) 0.125 mg Q4H PRN PEG INCREASED SECRETIONS Last administered on 04/10/16at 08:05; Start 03/22/16 at 15:15; Stop 04/11/16 at 10:24; Status DC Warfarin Sodium (Coumadin) 2 mg ONCE ONCE PO Last administered on 03/23/16at 17: 26; Start 03/23/16 at 16:00; Stop 03/23/16 at 16:01; Status DC Insulin Detemir (Levemir Inj) 34 units HS SQ Last administered on 03/23/16at 20: 01; Start 03/23/16 at 21:00; Stop 03/24/16 at 13:53; Status DC Insulin Detemir (Levemir Inj) 35 units HS SQ Last administered on 11/15/16t 22: 06; Start 03/24/16 at 21:00; Stop 01/09/17 at 15:46; Status DC Insulin Aspart (NovoLOG SUPPLEMENTAL SCALE) 1 ACHS SLIDING SCALE SQ Last administered on 04/16/16at 22:27; Start 03/24/16 at 16:00; Stop 04/19/16 at 17:19 ; Status DC Warfarin Sodium (Coumadin) 1 mg ONCE ONCE PO Last administered on 03/30/16at 16 :59; Start 03/30/16 at 16:00; Stop 03/30/16 at 16:01; Status DC Potassium Chloride (KCl 40 Meq/30 ml Liq) 40 meq ONCE ONCE NG Last administered on 03/31/16at 21:28; Start 03/31/16 at 18:30; Stop 03/31/16 at 18:31 ; Status DC Potassium Bicarb/ Potassium Chloride (K-Lyte Cl Eff) 25 meq ONCE ONCE PEG Last administered on 04/02/16at 12:01; Start 04/02/16 at 13:00; Stop 04/02/16 at 13:01; Status DC Metoprolol Tartrate (Lopressor) 75 mg BID PO Last administered on 05/28/16at 21: 03; Start 04/02/16 at 21:00; Stop 05/29/16 at 11:21; Status DC Potassium Bicarb/ Potassium Chloride (K-Lyte Cl Eff) 25 meq ONCE ONCE PEG Last administered on 04/04/16at 14:40; Start 04/04/16 at 12:30; Stop 04/04/16 at 12:31; Status DC Linezolid (Zyvox) 600 mg Q12HR PO Last administered on 04/16/16at 09:11; Start 04/05/16 at 15:00; Stop 04/16/16 at 12:00; Status DC Artificial Tears (Lacrilube Opht Oint) 1 applic Q12HR EACH EYE Last administered on 09/04/16 21:00; Start 04/10/16 at 11:00; Stop 09/05/16 at 14:38 ; Status DC Hyoscyamine Sulfate (Levsin) 0.25 mg Q4H PRN G-TUBE INCREASED SECRETIONS Last administered on 03/07/17 06:14; Start 04/11/16 at 10:30; Stop 03/07/17 at 07:56 ; Status DC Diatrizoate Meglum/ Diatrizoate Sod ( Gastroview Liq) 18 ml ONCE ONCE PO Last administered on 04/12/16at 16:45; Start 04/12/16 at 16:15; Stop 04/12/16 at 16:16; Status DC Warfarin Sodium (Coumadin) 3 mg DAILY@16 PO ; Start 04/13/16 at 16:00; Stop 05/27/16 at 11:51; Status DC Iohexol (Omnipaque 350 Inj) 98 ml STK-MED ONCE IV Last administered on at 21:01; Start 04/12/16 at 21:01; Stop 04/12/16 at 21:02; Status DC Diltiazem HCl (Cardizem Cd) 180 mg DAILY PO ; Start 04/15/16 at 09:00; Stop at 08:50; Status DC Ondansetron HCl (Zofran Inj) 4 mg Q6HR PRN IV PUSH nausea/vomiting Last administered on 03/16/17 16:00; Start 04/14/16 at 19:45 Diltiazem HCl (Cardizem) 60 mg QID PO Last administered on 04/25/16at 17:26; Start 04/15/16 at 13:00; Stop 04/25/16 at 19:06; Status DC Sodium Chloride 500 ml @ 500 mls/hr BOLUS ONCE IV Last administered on at 09:15; Start 04/15/16 at 09:15; Stop 04/15/16 at 10:14; Status DC Potassium Chloride 10 meq/ Dextrose/Sodium Chloride 1,005 ml @ 100 mls/hr Q10H3M IV Last administered on 04/15/16at 21:03; Start 04/15/16 at 11:00; Stop 04/16/16 at 09:09; Status DC Enoxaparin Sodium (Lovenox Inj) 90 mg Q12H SQ Last administered on 04/16/16at 21 :12; Start 04/16/16 at 09:00; Stop 04/17/16 at 10:37; Status DC Water (Free Water) 200 ml Q4HR TUBE Last administered on 12/24/16 08:00; Start 04/16/16 at 12:00; Stop 12/24/16 at 10:34; Status DC Sodium Chloride 1,000 ml @ 84 mls/hr [id number] IV Last administered on at 08:38; Start 04/16/16 at 10:00; Stop 04/20/16 at 12:04; Status DC Ceftriaxone Sodium 2000 mg/ Sodium Chloride 100 ml @ 200 mls/hr Q24H IV Last administered on 05/02/16at 13:19; Start 04/16/16 at 12:00; Stop 05/03/16 at 12: 06; Status DC Acetaminophen/ Hydrocodone Bitart (Tenafly 5-325 Mg) 1 tab Q6HR PEG Last administered on 09/17/16t 06:42; Start 04/18/16 at 18:00; Stop 09/17/16 at 09:17 ; Status DC Lactulose (Lactulose Liq) 30 ml NOW ONCE PEG Last administered on 04/19/16at 17 :21; Start 04/19/16 at 17:30; Stop 04/19/16 at 17:31; Status DC Lactulose (Lactulose Liq) 30 ml DAILY PEG Last administered on 05/26/16at 08:14 ; Start 04/20/16 at 09:00; Stop 05/27/16 at 11:39; Status DC Potassium Bicarb/ Potassium Chloride (K-Lyte Cl Eff) 50 meq ONCE ONCE PO Last administered on 04/20/16at 05:52; Start 04/20/16 at 05:45; Stop 04/20/16 at 05:46; Status DC Furosemide (Lasix Inj) 20 mg ONCE ONCE IV PUSH Last administered on 04/20/16at 17:35; Start 04/20/16 at 12:00; Stop 04/20/16 at 12:06; Status DC Insulin Aspart (NovoLOG SUPPLEMENTAL SCALE) 1 ACHS SLIDING SCALE SQ Last administered on 06/02/16at 12:10; Start 04/20/16 at 16:00; Stop 06/02/16 at 21: 44; Status DC Dextrose (D50w (Vial) Inj) 25 ml UNSCH PRN IV HYPOGLYCEMIA-SEE COMMENTS; Start 04/20/16 at 12:00; Stop 01/09/17 at 15:52; Status DC Glucagon (Glucagon Inj) 1 mg UNSCH PRN IM/SQ HYPOGLYCEMIA-SEE COMMENTS; Start 04/20/16 at 12:00; Stop 01/09/17 at 15:52; Status DC Lactobacillus Acidophilus (Lactinex) 1 tab Q12HR PEG Last administered on 06/06at 21:34; Start 04/22/16 at 09:00; Stop 06/07/16 at 09:32; Status DC Furosemide (Lasix Inj) 20 mg Q12H IV PUSH Last administered on 04/24/16at 08:52 ; Start 04/22/16 at 09:00; Stop 04/24/16 at 09:25; Status DC Potassium Bicarb/ Potassium Chloride (K-Lyte Cl Eff) 25 meq Q12HR TUBE Last administered on 05/27/16at 08:17; Start 04/22/16 at 09:00; Stop 05/27/16 at 11:51 ; Status DC Albumin Human (Albumin 25% Inj) 12.5 gm Q12H IV Last administered on 04/24/16at 08:46; Start 04/22/16 at 09:00; Stop 04/24/16 at 09:25; Status DC Furosemide (Lasix Inj) 20 mg DAILY IV PUSH Last administered on 05/08/16at 09: 01; Start 04/25/16 at 09:00; Stop 05/08/16 at 11:06; Status DC Albumin Human (Albumin 25% Inj) 12.5 gm DAILY IV Last administered on at 09:02; Start 04/25/16 at 10:00; Stop 05/08/16 at 11:06; Status DC Furosemide (Lasix Inj) 40 mg ONCE ONCE IV PUSH Last administered on 04/25/16at 18:15; Start 04/25/16 at 18:15; Stop 04/25/16 at 18:16; Status DC Albuterol/ Ipratropium (Duoneb Neb) 1 ampule Q6HR NEB NEB Last administered on 04/27/16at 15:52; Start 04/25/16 at 18:30; Stop 04/27/16 at 19:45; Status DC Ipratropium [place] [facility] (Atrovent Neb) 0.5 mg Q6HR NEB NEB Last administered on at 16:51; Start 04/25/16 at 22:00; Stop 04/27/16 at 16:44; Status DC Levalbuterol HCl (Xopenex Neb) 0.31 mg Q4HR NEB NEB Last administered on at 23:48; Start 04/25/16 at 20:00; Stop 04/27/16 at 16:43; Status DC Levalbuterol HCl (Xopenex Neb) 0.31 mg Q2HR NEB PRN NEB SHORTNESS OF BREATH; Start 04/25/16 at 18:45; Stop 04/28/16 at 10:50; Status DC Diltiazem HCl (Cardizem) 90 mg QID PEG Last administered on 07/17/16at 09:27; Start 10/6/16 at 21:00; Stop 07/17/16 at 17:52; Status DC Diltiazem HCl (Cardizem) 30 mg NOW ONCE PEG Last administered on 04/25/16at 21: 36; Start 04/25/16 at 19:15; Stop 04/25/16 at 19:16; Status DC Levalbuterol HCl (Xopenex Neb) 0.31 mg Q8HR NEB NEB ; Start 04/28/16 at 00:00; Stop 04/28/16 at 10:50; Status DC Levalbuterol HCl (Xopenex Neb) 0.63 mg Q4HR NEB PRN NEB SHORTNESS OF BREATH Last administered on 05/04/16at 15:26; Start 04/28/16 at 11:00; Stop 05/04/16 at 00:51; Status DC Levalbuterol HCl (Xopenex Neb) 0.63 mg Q8HR NEB NEB Last administered on 05/04at 00:07; Start 04/28/16 at 16:00; Stop 05/04/16 at 00:50; Status DC Polyethylene Glycol/ Electrolytes (Colyte Liq) 4,000 ml ONCE ONCE PO Last administered on 05/05/16at 08:10; Start 05/05/16 at 08:45; Stop 05/05/16 at 08 :46; Status DC Cefazolin Sodium/ Dextrose 50 ml @ 100 mls/hr ONCE ONCE IV ; Start 05/06/16 at 14:00; Stop 05/06/16 at 14:29; Status DC Metronidazole 100 ml @ 100 mls/hr ONCE ONCE IV Last administered on at 14:00; Start 05/06/16 at 14:00; Stop 05/06/16 at 14:59; Status DC Ceftriaxone Sodium 2000 mg/ Sodium Chloride 100 ml @ 200 mls/hr Q24H IV Last administered on 06/09/16at 12:36; Start 05/03/16 at 12:00; Stop 06/10/16 at 12 :48; Status DC Levalbuterol HCl (Xopenex Neb) 0.63 mg Q8HR NEB NEB Last administered on 05/05at 08:00; Start 05/04/16 at 00:49; Stop 05/05/16 at 08:07; Status DC Levalbuterol HCl (Xopenex Neb) 0.63 mg Q4HR NEB PRN NEB SHORTNESS OF BREATH Last administered on 03/30/17 21:58; Start 05/05/16 at 12:00 Levalbuterol HCl (Xopenex Neb) 0.63 mg Q8HR NEB NEB Last administered on 05/08at 23:56; Start 05/05/16 at 08:15; Stop 05/09/16 at 08:15; Status DC Potassium Bicarb/ Potassium Chloride (K-Lyte Cl Eff) 25 meq DAILY TUBE Last administered on 01/09/17 08:12; Start 05/28/16 at 09:00; Stop 01/09/17 at 15:46 ; Status DC Aspirin (Aspirin) 325 mg DAILY TUBE Last administered on 04/07/17 08:08; Start 05/27/16 at 11:40; Status Future hold Docusate Sodium (Colace Liq) 100 mg DAILY PRN PO constipation Last administered on 08/16/16 21:09; Start 05/27/16 at 11:45; Stop 08/31/16 at 09:00 ; Status DC Metoprolol Tartrate (Lopressor) 50 mg BID PO Last administered on 08/23/16 09: 03; Start 05/29/16 at 21:00; Stop 08/23/16 at 15:33; Status DC Acetaminophen/ Hydrocodone Bitart (Tenafly 5-325 Mg) 1 tab Q6H PRN TUBE BREAKTHROUGH PAIN Last administered on 08/02/16 15:11; Start 06/03/16 at 03:00 ; Stop 09/17/16 at 14:33; Status DC Insulin Aspart (NovoLOG SUPPLEMENTAL SCALE) 1 ACHS SLIDING SCALE SQ Last administered on 06/06/16at 21:35; Start 06/03/16 at 07:00; Stop 06/07/16 at 12 :24; Status DC Lactobacillus Acidophilus (Lactinex) 1 tab TID PEG Last administered on 09:13; Start 06/07/16 at 13:00; Stop 10/13/16 at 12:08; Status DC Insulin Aspart (NovoLOG SUPPLEMENTAL SCALE) 1 AC BREAKFAST SQ Last administered on 01/08/17 06:49; Start 06/08/16 at 07:00; Stop 01/09/17 at 15: 46; Status DC Ceftriaxone Sodium 2000 mg/ Sodium Chloride 100 ml @ 200 mls/hr Q24H IV Last administered on 07/28/16 12:19; Start 06/10/16 at 12:00; Stop 07/29/16 at 13:30 ; Status DC Heparin Sodium (Porcine) (Heparin Inj) 5,000 units Q12HR SQ Last administered on 06/11/16at 00:58; Start 06/10/16 at 14:15; Stop 06/11/16 at 06:21; Status DC Heparin Sodium (Porcine) (Heparin Inj) 5,000 units Q8HR SQ Last administered on 03/22/17 14:43; Start 06/11/16 at 14:00; Stop 03/22/17 at 18:52; Status DC Diltiazem HCl (Cardizem) 30 mg QID PEG Last administered on 08/16/16 08:31; Start 07/17/16 at 18:00; Stop 08/16/16 at 12:06; Status DC Bacitracin (Baciguent Oint) 1 applic BID TOP Last administered on 04/07/17 08: 14; Start 07/20/16 at 10:00 Lactated Ringer's 1,000 ml @ 30 mls/hr Q24H IV ; Start 07/21/16 at 17:45; Stop 08/14/16 at 12:08; Status DC Sodium Chloride 500 ml @ 30 mls/hr [id number] IV ; Start 07/21/16 at 17:45; Stop at 17:44; Status DC Insulin Human Regular (NovoLIN R INJ) See Protocol Table ... UNSCH X1 PRN SQ SEE PROTOCOL; Start 07/21/16 at 17:45; Stop 07/22/16 at 17:44; Status DC Metoprolol Tartrate (Lopressor) 25 mg UNSCH X1 PRN PO SEE LABEL COMMENTS; Start 07/21/16 at 17:45; Stop 07/22/16 at 17:44; Status DC Lidocaine/ Epinephrine (Xylocaine-Epi 1%-1:100,000 Inj) 40 ml STK-MED ONCE .ROUTE Last administered on 07/22/16 10:56; Start 07/22/16 at 10:04; Stop at 10:05; Status DC Ketamine HCl (Ketalar Inj) 500 mg STK-MED ONCE .ROUTE ; Start 07/22/16 at 10:50; Stop 07/22/16 at 10:51; Status DC Propofol (Diprivan 200 Mg/20 ml Inj) 600 mg STK-MED ONCE IV ; Start 07/22/16 at 12:00; Stop 07/23/16 at 14:36; Status DC Dextrose 1,000 ml @ 40 mls/hr Q24H ONCE IV Last administered on 07/28/16 14:33 ; Start 07/28/16 at 14:00; Stop 07/29/16 at 13:59; Status DC Ampicillin Sodium/ Sulbactam Sodium 3 gm/Sodium Chloride 100 ml @ 200 mls/hr Q6H IV Last administered on 08/01/16 12:30; Start 07/29/16 at 14:00; Stop 08/01 at 14:13; Status DC Ondansetron HCl (Zofran Inj) 4 mg ONCE ONCE IV PUSH Last administered on 02:46; Start 07/30/16 at 00:30; Stop 07/30/16 at 00:33; Status DC Lactated Ringer's 1,000 ml @ 30 mls/hr Q24H IV ; Start 07/30/16 at 06:00; Stop 08/14/16 at 12:09; Status DC Sodium Chloride 500 ml @ 30 mls/hr [id number] IV ; Start 07/30/16 at 06:00; Stop 07/31/16 at 05:59; Status DC Pantoprazole Sodium (Protonix Inj) 40 mg Q12H IV PUSH Last administered on 12:01; Start 07/30/16 at 10:15; Stop 01/26/17 at 18:02; Status DC Propofol (Diprivan 200 Mg/20 ml Inj) 200 mg STK-MED ONCE IV ; Start 07/30/16 at 09:41; Stop 07/30/16 at 10:19; Status DC Piperacillin Sod/ Tazobactam Sod 100 ml @ 200 mls/hr Q6H IV Last administered on 08/07/16 09:37; Start 08/01/16 at 16:00; Stop 08/07/16 at 16:10; Status DC Linezolid (Zyvox) 600 mg Q12HR PO Last administered on 08/22/16 09:10; Start at 21:00; Stop 08/22/16 at 15:55; Status DC Sodium Chloride ([place]) 1 spray BID NASAL Last administered on 08:14; Start 08/01/16 at 21:00 Metronidazole (Flagyl) 500 mg Q8H PO Last administered on 08/08/16 08:28; Start 08/07/16 at 16:00; Stop 08/08/16 at 16:10; Status DC Sodium Chloride 1,000 ml @ 42 mls/hr [id number] IV Last administered on 12:44; Start 08/14/16 at 12:00; Stop 08/15/16 at 10:56; Status DC Fentanyl Citrate (fentaNYL INJ) 250 mcg STK-MED ONCE .ROUTE Last administered on 08/14/16 15:36; Start 08/14/16 at 15:36; Stop 08/14/16 at 15:37; Status DC Iohexol (Omnipaque 350 Inj) 30 ml STK-MED ONCE G-TUBE Last administered on 08/14 15:45; Start 08/14/16 at 15:52; Stop 08/14/16 at 15:53; Status DC Diltiazem HCl (Cardizem) 30 mg QID PEG Last administered on 11/19/16 07:52; Start 08/16/16 at 13:00; Stop 11/19/16 at 17:31; Status DC Polyethylene Glycol (Miralax) 17 gm ONCE ONCE PEG Last administered on 11:32; Start 08/17/16 at 12:00; Stop 08/17/16 at 12:01; Status DC Amoxicillin (Trimox) 500 mg Q8HR PO Last administered on 11/19/16 13:20; Start 08/22/16 at 22:00; Stop 11/19/16 at 22:41; Status DC Cefepime HCl 1000 mg/Sodium Chloride 100 ml @ 200 mls/hr Q8H IV Last administered on 09/03/16 10:46; Start 08/23/16 at 16:00; Stop 09/03/16 at 15:02 ; Status DC Metoprolol Tartrate (Lopressor) 75 mg BID PO Last administered on 09/13/16 08: 42; Start 08/23/16 at 21:00; Stop 09/13/16 at 13:09; Status DC Docusate Sodium (Colace Liq) 100 mg BID PO Last administered on 12/25/16 09:20 ; Start 08/30/16 at 21:00; Stop 12/25/16 at 13:12; Status DC Sennosides (Senokot) 17.2 mg DAILY PO Last administered on 09/25/16 08:36; Start 08/30/16 at 14:00; Stop 09/25/16 at 16:09; Status DC Lactulose (Lactulose Liq) 30 ml DAILY PO Last administered on 11/20/16 08:03; Start 09/02/16 at 15:30; Stop 12/27/16 at 15:28; Status DC Artificial Tears (Tears Naturale Opth Soln) 1 drop BID EACH EYE Last administered on 04/07/17 08:14; Start 09/05/16 at 21:00 Midazolam HCl (Versed Inj) 2 mg STK-MED ONCE .ROUTE Last administered on 11:37; Start 09/09/16 at 11:37; Stop 09/09/16 at 11:38; Status DC Fentanyl Citrate (fentaNYL INJ) 100 mcg STK-MED ONCE .ROUTE Last administered on 09/09/16 11:38; Start 09/09/16 at 11:38; Stop 09/09/16 at 11:39; Status DC Iohexol (Omnipaque 350 Inj) 20 ml STK-MED ONCE G-TUBE Last administered on 09/09 11:50; Start 09/09/16 at 11:50; Stop 09/09/16 at 12:15; Status DC Metoprolol Tartrate (Lopressor) 50 mg BID PO Last administered on 11/19/16 07: 52; Start 09/13/16 at 21:00; Stop 11/19/16 at 17:31; Status DC Acetaminophen/ Hydrocodone Bitart (Tenafly 5-325 Mg) 1 tab Q6H PEG ; Start at 11:00; Stop 09/17/16 at 14:25; Status DC Acetaminophen/ Hydrocodone Bitart (Tenafly 5-325 Mg) 1 tab DAILY@1600 PO ; Start 09/17/16 at 16:00; Stop 09/17/16 at 16:00; Status DC Morphine Sulfate (Morphine Inj) 1 mg Q24H PRN IV PUSH dressing change 30 min before Last administered on 10/22/16 02:00; Start 09/17/16 at 14:30 Acetaminophen/ Hydrocodone Bitart (Tenafly 5-325 Mg) 1 tab DAILY@0000 PO Last administered on 09/17/16 23:43; Start 09/18/16 at 00:00; Stop 09/20/16 at 12:46; Status DC Acetaminophen/ Hydrocodone Bitart (Tenafly 5-325 Mg) 1 tab Q8H PO Last administered on 10/13/16 13:38; Start 09/20/16 at 13:00; Stop 10/13/16 at 18:29 ; Status DC Ketoconazole (Nizoral 2% Cream) 1 applic Q12HR TOPICAL Last administered on 21:00; Start 09/24/16 at 21:00; Stop 01/02/17 at 13:03; Status DC Sennosides (Senna Liq) 8.8 mg DAILY@1600 PO Last administered on 11/12/16 16: 45; Start 09/25/16 at 17:00; Stop 12/27/16 at 15:28; Status DC Sodium Biphosphate/ Sodium Phosphate (Fleets Enema (Adult)) 133 ml UNSCH PRN MA CONSTIPATION; Start 09/25/16 at 16:00; Status Cancel Bisacodyl (Dulcolax Supp) 10 mg DAILY PRN RECTAL SEVERE CONSTIPATION IF NOT PO Last administered on 12/08/16 09:17; Start 09/26/16 at 15:30 Bisacodyl (Dulcolax Supp) 10 mg ONCE ONCE RECTAL Last administered on 16:10; Start 09/26/16 at 15:30; Stop 09/26/16 at 15:31; Status DC Cyclobenzaprine HCl (Flexeril) 5 mg Q8H PO Last administered on 10/13/16 13:37 ; Start 10/13/16 at 12:15; Stop 10/13/16 at 18:27; Status DC Magnesium Hydroxide (Milk Of Magnesia Liq) 30 ml DAILY PRN PO constipation Last administered on 12/19/16 12:33; Start 10/13/16 at 14:30; Stop 12/27/16 at 15 :28; Status DC Acetaminophen/ Hydrocodone Bitart (Tenafly 5-325 Mg) 1 tab Q6H PRN PO PAIN SCALE 1 TO 10; Start 10/13/16 at 18:30; Stop 10/13/16 at 18:30; Status DC Acetaminophen/ Hydrocodone Bitart (Tenafly 5-325 Mg) 1 tab Q6H PRN PO PAIN SCALE 1 TO 10 Last administered on 12/22/16 18:42; Start 10/13/16 at 18:45; Stop 12/27/16 at 15:28; Status DC Cyclobenzaprine HCl (Flexeril) 5 mg HS PRN PO muscle relaxant Last administered on 10/22/16 21:17; Start 10/14/16 at 14:15; Stop 12/27/16 at 15:28; Status DC Fentanyl Citrate (fentaNYL INJ) 100 mcg STK-MED ONCE .ROUTE ; Start 10/23/16 at 16:51; Stop 10/23/16 at 16:52; Status DC Glycerin (Glycerin Adult Supp) 2 gm ONCE ONCE RECTAL Last administered on 15:29; Start 10/26/16 at 15:00; Stop 10/26/16 at 15:01; Status DC Nitrofurantoin Macrocrystals (Macrobid) 100 mg BIDPC PO Last administered on 09:36; Start 10/26/16 at 15:00; Stop 10/29/16 at 14:59; Status DC Sodium Chloride 1,000 ml @ 30 mls/hr Q24H IV Last administered on 11/28/16 06 :30; Start 11/17/16 at 14:15; Stop 11/28/16 at 19:38; Status DC Piperacillin Sod/ Tazobactam Sod 50 ml @ 100 mls/hr Q6H IV Last administered on 11/21/16 16:25; Start 11/17/16 at 16:00; Stop 11/21/16 at 16:38; Status DC Sodium Chloride 1,000 ml @ 999 mls/hr BOLUS ONCE IV ; Start 11/18/16 at 10:45; Stop 11/18/16 at 11:45; Status DC Iohexol (Omnipaque 350 Inj) 20 ml STK-MED ONCE G-TUBE ; Start 11/18/16 at 18:06; Stop 11/18/16 at 18:07; Status DC Diltiazem HCl (Cardizem) 30 mg Q12H PEG Last administered on 01/09/17 02:04; Start 11/20/16 at 01:00; Stop 01/09/17 at 15:45; Status DC Metoprolol Tartrate (Lopressor) 25 mg BID PO Last administered on 12/26/16 20: 34; Start 11/19/16 at 21:00; Stop 12/27/16 at 15:28; Status DC Loperamide HCl (Imodium Liq) 2 mg UNSCH PRN PO DIARRHEA; Start 11/20/16 at 15:30 ; Stop 11/20/16 at 15:30; Status DC Loperamide HCl (Imodium Liq) 2 mg Q6H PRN PO DIARRHEA Last administered on 02:04; Start 11/20/16 at 15:30; Stop 12/27/16 at 15:28; Status DC Aztreonam 2000 mg/ Sodium Chloride 100 ml @ 200 mls/hr Q6H IV Last administered on 11/28/16 12:25; Start 11/21/16 at 18:00; Stop 11/28/16 at 17:01 ; Status DC Acetylcysteine (Mucomyst 10% Neb) 2 ml Q6HR NEB PRN NEB Mucolysis Last administered on 11/23/16 10:08; Start 11/22/16 at 16:15; Stop 11/23/16 at 18:00; Status DC Acetylcysteine (Mucomyst 10% Neb) 2 ml Q8HR NEB NEB Last administered on 08:00; Start 11/23/16 at 18:00; Stop 11/27/16 at 18:00; Status DC Sodium Chloride 1,000 ml @ 125 mls/hr Q8H IV Last administered on 01/11/17 03 :35; Start 11/28/16 at 19:45; Stop 01/11/17 at 08:39; Status DC Acetylcysteine (Mucomyst 10% Neb) 2 ml Q4HR NEB PRN NEB Thick secretions. ; Start 11/28/16 at 23:30; Stop 12/02/16 at 23:30; Status DC Iodixanol (VISIPAQUE 320 INJ (Rad Spec)) 10 ml STK-MED ONCE J-TUBE Last administered on 12/04/16 18:12; Start 12/04/16 at 18:12; Stop 12/04/16 at 18:13 ; Status DC Iohexol (Omnipaque 350 Inj) 15 ml STK-MED ONCE .XX Last administered on 16:25; Start 12/20/16 at 16:25; Stop 12/20/16 at 16:26; Status DC Water (Free Water) 150 ml Q6HR TUBE Last administered on 01/01/17 05:06; Start 12/24/16 at 12:00; Stop 01/01/17 at 10:23; Status DC Magnesium Hydroxide (Milk Of Magnesia Liq) 30 ml DAILY PO Last administered on 12/26/16 09:08; Start 12/26/16 at 09:00; Stop 12/27/16 at 15:28; Status DC Acetaminophen/ Codeine Phosphate (Tylenol - Codeine 120-12 Liq) 5 ml Q4H PRN G- TUBE pain 2-10 Last administered on 03/31/17 05:50; Start 12/27/16 at 15:30 Cyclobenzaprine HCl (Flexeril) 5 mg HS PRN PEG muscle relaxant ; Start 12/27/16 at 15:30; Stop 02/13/17 at 08:51; Status DC Lactulose (Lactulose Liq) 30 ml DAILY PEG Last administered on 01/28/17 07:57 ; Start 12/28/16 at 09:00; Stop 01/29/17 at 17:48; Status DC Loperamide HCl (Imodium Liq) 2 mg Q6H PRN PEG DIARRHEA Last administered on 20:38; Start 12/27/16 at 15:30 Magnesium Hydroxide (Milk Of Magnesia Liq) 30 ml DAILY PRN PEG mild-moderate constipation Last administered on 02/11/17 08:46; Start 12/27/16 at 15:30 Magnesium Hydroxide (Milk Of Magnesia Liq) 30 ml DAILY PEG Last administered on 01/19/17 08:44; Start 12/28/16 at 09:00; Status Future Hold Metoprolol Tartrate (Lopressor) 25 mg BID PEG Last administered on 01/09/17 08 :13; Start 12/27/16 at 21:00; Stop 01/09/17 at 15:57; Status DC Sennosides (Senna Liq) 8.8 mg DAILY@1600 PEG Last administered on 03/24/17 17: 13; Start 12/27/16 at 16:00; Status Future Hold Lactulose (Lactulose Liq) 30 ml DAILY PRN PEG severe constipation ; Start at 15:30 Iohexol (Omnipaque 350 Inj) 15 ml STK-MED ONCE G-TUBE Last administered on 12/31 16:40; Start 12/31/16 at 16:50; Stop 12/31/16 at 16:51; Status DC Water (Free Water) 200 ml Q6HR TUBE Last administered on 01/09/17 12:00; Start 01/01/17 at 12:00; Stop 01/09/17 at 15:46; Status DC Propofol 100 ml @ As Directed STK-MED ONCE .ROUTE ; Start 01/09/17 at 15:06; Stop 01/09/17 at 15:07; Status DC Diltiazem HCl (Cardizem Inj) 25 mg STK-MED ONCE .ROUTE ; Start 01/09/17 at 15:39 ; Stop 01/09/17 at 15:40; Status DC Diltiazem HCl (Cardizem) 30 mg QID PEG Last administered on 03/28/17 12:52; Start 01/09/17 at 18:00; Stop 03/28/17 at 14:04; Status DC Diltiazem HCl (Cardizem Inj) 10 mg ONCE ONCE IV Last administered on 16:00; Start 01/09/17 at 16:00; Stop 01/09/17 at 16:01; Status DC Albuterol/ Ipratropium (Duoneb Neb) 1 ampule Q6HR NEB NEB Last administered on 01/13/17 15:12; Start 01/09/17 at 16:00; Stop 01/13/17 at 16:00; Status DC Dextrose (D50w (Vial) Inj) 50 ml UNSCH PRN IV HYPOGLYCEMIA-SEE COMMENTS; Start 01/09/17 at 16:00; Stop 03/28/17 at 14:08; Status DC Glucagon (Glucagon Inj) 1 mg UNSCH PRN OTHER HYPOGLYCEMIA-SEE COMMENTS; Start 01/09/17 at 16:00; Stop 03/28/17 at 14:08; Status DC Insulin Human Regular (NovoLIN R SUPPLEMENTAL SCALE) 1 Q6H SQ Last administered on 01/25/17t 16:00; Start 01/09/17 at 16:00; Stop 01/26/17 at 18:01; Status DC Potassium Chloride 100 ml @ 50 mls/hr Q2H PRN IV For Potassium 2.8 - 3.2 mEq/L ; Start 01/09/17 at 16:00; Stop 01/28/17 at 11:54; Status DC Potassium Chloride 100 ml @ 50 mls/hr Q2H PRN IV For Potassium 2.8 - 3.2 mEq/L ; Start 01/09/17 at 16:00; Stop 01/28/17 at 11:54; Status DC Potassium Bicarb/ Potassium Chloride (K-Lyte Cl Eff) 50 meq UNSCH PRN PO For Potassium 3.3 - 3.5 mEq/L; Start 01/09/17 at 16:00; Stop 01/28/17 at 11:54; Status DC Potassium Chloride 100 ml @ 25 mls/hr UNSCH PRN IV For Potassium 3.3 - 3.5 mEq /L; Start 01/09/17 at 16:00; Stop 01/28/17 at 11:54; Status DC Potassium Chloride 100 ml @ 50 mls/hr Q2H PRN IV For Potassium 3.3 - 3.5 mEq/L ; Start 01/09/17 at 16:00; Stop 01/28/17 at 11:54; Status DC Magnesium Sulfate 4 gm/Sodium Chloride 100 ml @ 50 mls/hr UNSCH PRN IV For Magnesium 0.9 - 1.1 mg/dL; Start 01/09/17 at 16:00; Stop 01/28/17 at 11:54; Status DC Magnesium Oxide (Mag-Ox) 800 mg UNSCH PRN PO For Magnesium 1.2 - 1.6 mg/dL; Start 01/09/17 at 16:00; Stop 01/28/17 at 11:54; Status DC Magnesium Sulfate 2 gm/Sodium Chloride 100 ml @ 50 mls/hr UNSCH PRN IV For Magnesium 1.2 - 1.6 mg/dL; Start 01/09/17 at 16:00; Stop 01/28/17 at 11:54; Status DC Potassium Phosphate (K-Phos) 2,000 mg Q4H PRN PO For Phosphorus < 2.5 mg/dL; Start 01/09/17 at 16:00; Stop 01/28/17 at 11:54; Status DC Sodium Phosphate 30 mmol/Sodium Chloride 250 ml @ 42 mls/hr UNSCH PRN IV For Phosphorus < 2.5 mg/dL Last administered on 01/20/17 06:00; Start 01/09/17 at 16 :00; Stop 01/28/17 at 11:54; Status DC Potassium Phosphate (K-Phos) 2,000 mg UNSCH PRN PO/TUBE SEE LABEL COMMENTS; Start 01/09/17 at 16:00; Stop 01/28/17 at 11:54; Status DC Potassium Phosphate 30 mmol/ Sodium Chloride 260 ml @ 42 mls/hr UNSCH PRN IV SEE LABEL COMMENTS Last administered on 01/13/17 10:15; Start 01/09/17 at 16:00 ; Stop 01/28/17 at 11:54; Status DC Cefepime HCl 1000 mg/Sodium Chloride 100 ml @ 200 mls/hr Q8H IV Last administered on 01/13/17 15:20; Start 01/09/17 at 16:00; Stop 01/13/17 at 15:24 ; Status DC Vancomycin HCl 1000 mg/Sodium Chloride 250 ml @ 250 mls/hr Q12H IV ; Start at 16:00; Stop 01/09/17 at 16:22; Status DC Pharmacy Profile Note 0 ml @ 0 mls/hr UNSCH OTHER ; Start 01/09/17 at 16:00; Stop 01/13/17 at 10:54; Status DC Sodium Chloride 1,000 ml @ 999 mls/hr BOLUS ONCE IV Last administered on 01/09 16:15; Start 01/09/17 at 16:15; Stop 01/09/17 at 17:15; Status DC Vancomycin HCl 1250 mg/Sodium Chloride 262.5 ml @ 262.5 mls/ hr Q12H IV Last administered on 01/11/17 18:50; Start 01/09/17 at 18:00; Stop 01/11/17 at 19:03 ; Status DC Miscellaneous Information SPECIFIC LAB TO BE ELISA... ONCE ONCE .XX Last administered on 01/11/17 05:45; Start 01/11/17 at 05:45; Stop 01/11/17 at 05:46 ; Status DC Propofol 100 ml @ As Directed STK-MED ONCE .ROUTE Last administered on 17:18; Start 01/09/17 at 17:18; Stop 01/09/17 at 17:19; Status DC Iohexol (Omnipaque 350 Inj) 75 ml STK-MED ONCE IV Last administered on 18:11; Start 01/09/17 at 18:11; Stop 01/09/17 at 18:12; Status DC Propofol 100 ml @ 0 mls/hr TITRATE IV Last administered on 01/10/17 01:23; Start 01/09/17 at 21:00; Stop 01/10/17 at 07:23; Status DC Metronidazole 100 ml @ 100 mls/hr Q8H IV Last administered on 01/15/17 07:36 ; Start 01/10/17 at 01:00; Stop 01/15/17 at 15:03; Status DC Micafungin Sodium 150 mg/Sodium Chloride 100 ml @ 100 mls/hr Q24H IV Last administered on 01/13/17 02:40; Start 01/10/17 at 02:00; Stop 01/13/17 at 10:54 ; Status DC Sodium Chloride 1,000 ml @ 999 mls/hr BOLUS ONCE IV Last administered on 01/10 08:39; Start 01/10/17 at 07:30; Stop 01/10/17 at 08:30; Status DC Fentanyl Citrate 250 ml @ 0 mls/hr TITRATE IV Last administered on 01/10/17 08 :36; Start 01/10/17 at 07:30; Stop 01/20/17 at 07:02; Status DC Miscellaneous Information SPECIFIC LAB TO BE DRAWN:VANCO TROUGHRESCHEDU... ONCE ONCE .XX Last administered on 01/11/17 17:00; Start 01/11/17 at 17:45; Stop 01/11/17 at 17:46; Status DC Vancomycin HCl 1600 mg/Sodium Chloride 516 ml @ 250 mls/hr Q8H IV Last administered on 01/13/17 00:31; Start 01/12/17 at 00:00; Stop 01/13/17 at 10:55 ; Status DC Miscellaneous Information SPECIFIC LAB TO BE DRAWN:VANCO TROUGH DATE TO BE DR... ONCE ONCE .XX Last administered on 01/12/17 15:45; Start 01/12/17 at 15 :45; Stop 01/12/17 at 15:46; Status DC Etomidate (Amidate Inj) 20 mg STK-MED ONCE .ROUTE ; Start 01/13/17 at 07:34; Stop 01/13/17 at 07:35; Status DC Succinylcholine Chloride (Quelicin Inj) 200 mg STK-MED ONCE .ROUTE ; Start 01/13 at 07:34; Stop 01/13/17 at 07:35; Status DC Propofol 50 ml @ As Directed STK-MED ONCE .ROUTE ; Start 01/13/17 at 07:35; Stop 01/13/17 at 07:36; Status DC Cefepime HCl 2000 mg/Sodium Chloride 100 ml @ 200 mls/hr Q8H IV Last administered on 01/20/17 12:28; Start 01/13/17 at 20:00; Stop 01/20/17 at 16:55; Status DC Etomidate (Amidate Inj) 20 mg STK-MED ONCE .ROUTE ; Start 01/15/17 at 07:45; Stop 01/15/17 at 07:46; Status DC Succinylcholine Chloride (Quelicin Inj) 200 mg STK-MED ONCE .ROUTE ; Start 01/15 at 07:45; Stop 01/15/17 at 07:46; Status DC Piperacillin Sod/ Tazobactam Sod 100 ml @ 200 mls/hr Q6H IV Last administered on 01/27/17 05:07; Start 01/20/17 at 17:00; Stop 01/27/17 at 09:00; Status DC Sodium Chloride 1,000 ml @ 42 mls/hr [id number] IV Last administered on 01/25/17 11:53; Start 01/23/17 at 12:15; Stop 01/25/17 at 15:41; Status DC Iohexol (Omnipaque 350 Inj) 20 ml STK-MED ONCE .XX Last administered on 17:57; Start 01/24/17 at 17:57; Stop 01/24/17 at 17:58; Status DC Insulin Human Regular (NovoLIN R SUPPLEMENTAL SCALE) 1 Q6H SQ Last administered on 01/29/17 16:00; Start 01/26/17 at 22:00; Stop 01/30/17 at 09:47 ; Status DC Lansoprazole (Prevacid Odt) 30 mg BID NG Last administered on 04/07/17 08:08; Start 01/26/17 at 21:00 Lactobacillus Acidophilus (Lactinex Pkt) 1 gm TID G-TUBE Last administered on 08:05; Start 01/28/17 at 13:00; Stop 02/10/17 at 13:02; Status DC Arginine HCl (Ashish Powder) 1 pack BID G-TUBE Last administered on 03/19/17 09 :00; Start 02/10/17 at 21:00; Stop 03/19/17 at 15:18; Status DC Ferrous Sulfate (Ferrous Sulfate Liq) 300 mg DAILY PO Last administered on 04/07 08:07; Start 02/14/17 at 09:00 Ascorbic Acid (Vitamin C) 1,000 mg DAILY PO Last administered on 04/07/17 08: 08; Start 02/14/17 at 09:00 Iohexol (Omnipaque 350 Inj) 10 ml STK-MED ONCE G-TUBE Last administered on 03/10 21:07; Start 02/14/17 at 19:37; Stop 02/14/17 at 19:38; Status DC Sodium Chloride 500 ml @ 500 mls/hr BOLUS ONCE IV Last administered on 11:31; Start 02/18/17 at 10:45; Stop 02/18/17 at 11:44; Status DC Hyoscyamine Sulfate (Levsin) 0.25 mg BID PO Last administered on 02/25/17 08:27 ; Start 02/22/17 at 21:00; Stop 02/25/17 at 20:59; Status DC Ceftriaxone Sodium 1000 mg/ Sodium Chloride 100 ml @ 200 mls/hr Q24H IV Last administered on 02/23/17 21:15; Start 02/22/17 at 20:00; Stop 02/24/17 at 16:11; Status DC Cefepime HCl 1000 mg/Sodium Chloride 100 ml @ 200 mls/hr Q8H IV Last administered on 02/26/17 08:31; Start 02/24/17 at 17:00; Stop 02/26/17 at 08:58; Status DC Bacitracin (Bacitracin Oint Packet) 0.9 gm DAILY TOPICAL Last administered on 08:14; Start 02/25/17 at 09:00 Piperacillin Sod/ Tazobactam Sod 50 ml @ 100 mls/hr Q6H IV Last administered on 03/05/17 04:29; Start 02/26/17 at 11:00; Stop 03/05/17 at 10:59; Status DC Propofol (Diprivan 200 Mg/20 ml Inj) 150 mg STK-MED ONCE IV ; Start 02/26/17 at 11:32; Stop 02/26/17 at 12:22; Status DC Esmolol HCl (Brevibloc Bolus Inj) 10 mg STK-MED ONCE IV ; Start 02/26/17 at 11:32 ; Stop 02/26/17 at 12:22; Status DC Diatrizoate Meglum/ Diatrizoate Sod ( Gastroview Liq) 18 ml ONCE ONCE PO Last administered on 02/26/17 18:58; Start 02/26/17 at 17:30; Stop 02/26/17 at 17: 31; Status DC Iohexol (Omnipaque 350 Inj) 95 ml STK-MED ONCE IV Last administered on 02:31; Start 02/27/17 at 02:31; Stop 02/27/17 at 02:32; Status DC Sodium Chloride 1,000 ml @ 42 mls/hr [id number] IV Last administered on 00:07; Start 02/27/17 at 08:15; Stop 03/01/17 at 07:47; Status DC Morphine Sulfate (Morphine Inj) 1 mg NOW ONCE IV PUSH Last administered on 07:30; Start 02/28/17 at 07:30; Stop 02/28/17 at 07:31; Status DC Sodium Chloride 250 ml @ 15 mls/hr ONCE ONCE IV ; Start 02/28/17 at 09:30; Stop 03/01/17 at 02:13; Status DC Furosemide (Lasix Inj) 20 mg ONCE ONCE IV ; Start 02/28/17 at 10:00; Stop 02/28 at 10:01; Status DC Fentanyl Citrate (fentaNYL INJ) 250 mcg STK-MED ONCE .ROUTE ; Start 03/03/17 at 16:21; Stop 03/03/17 at 16:22; Status DC Miscellaneous Information ALL NURSING DEPARTME... UNSCH PRN .XX SEE LABEL COMMENTS; Start 03/03/17 at 16:07; Stop 03/04/17 at 16:06; Status DC Hyoscyamine Sulfate (Levsin) 0.25 mg Q4H G-TUBE Last administered on 03/09/17 09:45; Start 03/07/17 at 10:00; Stop 03/09/17 at 14:47; Status DC Albuterol/ Ipratropium (Duoneb Neb) 1 ampule Q4HR WHILE AWAKE NEB NEB Last administered on 03/11/17 08:36; Start 03/07/17 at 12:00; Stop 03/11/17 at 12:00 ; Status DC Hyoscyamine Sulfate (Levsin) 0.25 mg Q8H G-TUBE Last administered on 03/16/17 05:09; Start 03/09/17 at 22:00; Stop 03/16/17 at 10:01; Status DC Pharmacy Profile Note 0 ml @ 0 mls/hr UNSCH OTHER ; Start 03/10/17 at 09:00; Stop 03/15/17 at 15:12; Status DC Vancomycin HCl 1250 mg/Sodium Chloride 262.5 ml @ 262.5 mls/ hr Q12H IV ; Start 03/10/17 at 09:00; Status UNV Vancomycin HCl 1250 mg/Sodium Chloride 262.5 ml @ 250 mls/hr Q12H IV Last administered on 03/12/17 11:08; Start 03/10/17 at 11:00; Stop 03/13/17 at 12:51 ; Status DC Miscellaneous Information SPECIFIC LAB TO BE ELISA... ONCE ONCE .XX Last administered on 03/11/17 21:38; Start 03/11/17 at 22:45; Stop 03/11/17 at 22:46 ; Status DC Sodium Chloride 500 ml @ 500 mls/hr BOLUS ONCE IV Last administered on 10:45; Start 03/10/17 at 10:45; Stop 03/10/17 at 11:44; Status DC Iohexol (Omnipaque 350 Inj) 71 ml STK-MED ONCE IVCONTRAST ; Start 03/10/17 at 21 :04; Stop 03/10/17 at 21:05; Status DC Miscellaneous Information SPECIFIC LAB TO BE DRAWN:VANCOMYCIN TROUGH DATE TO... ONCE ONCE .XX Last administered on 03/12/17 10:45; Start 03/12/17 at 10:45; Stop 03/12/17 at 10:46; Status DC Vancomycin HCl 1500 mg/Sodium Chloride 515 ml @ 257.5 mls/ hr Q24H IV Last administered on 03/15/17 14:17; Start 03/13/17 at 15:00; Stop 03/15/17 at 15:12 ; Status DC Miscellaneous Information SPECIFIC LAB TO BE DRAWN:VANCOMYCIN TROUGH DATE TO... ONCE ONCE .XX ; Start 03/16/17 at 14:45; Stop 03/16/17 at 14:45; Status DC Gadodiamide (Omniscan Pf Inj) 16 ml STK-MED ONCE IV PUSH Last administered on 16:35; Start 03/14/17 at 16:35; Stop 03/14/17 at 16:36; Status DC Levofloxacin (Levaquin) 500 mg DAILY PO Last administered on 03/20/17 09:52; Start 03/15/17 at 16:00; Stop 03/20/17 at 10:15; Status DC Hyoscyamine Sulfate (Levsin) 0.25 mg Q4H G-TUBE Last administered on 03/18/17 09:11; Start 03/16/17 at 14:00; Stop 03/18/17 at 14:38; Status DC Hyoscyamine Sulfate (Levsin Liq) 0.125 mg ONCE ONCE PO Last administered on 11:00; Start 03/16/17 at 11:00; Stop 03/16/17 at 11:01; Status DC Guaifenesin/ Codeine Phosphate (Robitussin Ac 200-20 Mg/10 ml Liq) 10 ml ONCE ONCE PEG ; Start 03/16/17 at 15:45; Stop 03/16/17 at 15:46; Status DC Hyoscyamine Sulfate (Levsin) 0.25 mg Q8HR G-TUBE Last administered on 05:03; Start 03/18/17 at 22:00 Warfarin Sodium (Coumadin) 5 mg DAILY@1600 PO Last administered on 03/22/17 18: 48; Start 03/19/17 at 16:30; Stop 03/23/17 at 12:09; Status DC Pharmacy Profile Note 0 ml @ 0 mls/hr UNSCH OTHER ; Start 03/19/17 at 15:30 Sodium Chloride 1,000 ml @ 84 mls/hr [id number] IV Last administered on 03/24/17 06:18; Start 03/22/17 at 19:00; Stop 03/24/17 at 12:13; Status DC Warfarin Sodium (Coumadin) 4 mg DAILY@1600 PO Last administered on 03/23/17 14: 38; Start 03/23/17 at 16:00; Stop 03/25/17 at 10:39; Status DC Vancomycin HCl 1000 mg/Sodium Chloride 250 ml @ 250 mls/hr ONCE ONCE IV ; Start 03/24/17 at 12:15; Stop 03/24/17 at 12:50; Status DC Piperacillin Sod/ Tazobactam Sod 100 ml @ 200 mls/hr Q8H IV Last administered on 04/07/17 05:04; Start 03/24/17 at 14:00 Vancomycin HCl 1000 mg/Sodium Chloride 250 ml @ 250 mls/hr ONCE ONCE IV Last administered on 03/24/17 17:14; Start 03/24/17 at 15:00; Stop 03/24/17 at 15:59; Status DC Propofol (Diprivan 200 Mg/20 ml Inj) 200 mg STK-MED ONCE IV ; Start 03/03/17 at 12:00; Stop 03/25/17 at 08:35; Status DC Ondansetron HCl (Zofran Inj) 4 mg STK-MED ONCE IV PUSH ; Start 03/03/17 at 12:00 ; Stop 03/25/17 at 08:35; Status DC Warfarin Sodium (Coumadin) 3 mg DAILY@1600 PO Last administered on 03/26/17 14: 56; Start 03/25/17 at 16:00; Stop 03/28/17 at 09:45; Status DC Insulin Aspart (NovoLOG SUPPLEMENTAL SCALE) 1 ACHS SLIDING SCALE SQ Last administered on 04/07/17 08:31; Start 03/26/17 at 21:00 Dextrose (D50w (Vial) Inj) 50 ml UNSCH PRN IV PUSH HYPOGLYCEMIA - SEE COMMENTS ; Start 03/26/17 at 18:15 Glucagon (Glucagon Inj) 1 mg UNSCH PRN OTHER HYPOGLYCEMIA-SEE COMMENTS; Start 03/26/17 at 18:15 Insulin Detemir (Levemir Inj) 5 units Q12HR SQ Last administered on 03/28/17 07 :49; Start 03/27/17 at 21:00; Stop 03/28/17 at 11:01; Status DC Warfarin Sodium (Coumadin) 2 mg DAILY@1600 PO Last administered on 03/31/17 16 :14; Start 03/28/17 at 16:00; Stop 03/31/17 at 16:34; Status DC Insulin Detemir (Levemir Inj) 10 units Q12HR SQ Last administered on 04/07/17 08:24; Start 03/28/17 at 21:00 Diltiazem HCl (Cardizem) 60 mg QID PEG Last administered on 04/07/17 08:08; Start 03/28/17 at 18:00 Diltiazem HCl (Cardizem) 30 mg ONCE ONCE G-TUBE Last administered on 21:15; Start 03/30/17 at 21:15; Stop 03/30/17 at 21:16; Status DC Warfarin Sodium (Coumadin) 1 mg ONCE ONCE PO Last administered on 03/31/17 17 :54; Start 03/31/17 at 16:45; Stop 03/31/17 at 16:46; Status DC Warfarin Sodium (Coumadin) 3 mg DAILY@1600 PO Last administered on 04/03/17 15 :12; Start 04/01/17 at 16:00; Stop 04/03/17 at 16:43; Status DC Sodium Chloride 250 ml @ 250 mls/hr BOLUS ONCE IV Last administered on 13:29; Start 04/01/17 at 12:30; Stop 04/01/17 at 13:29; Status DC Sodium Chloride 1,000 ml @ 65 mls/hr [id number] IV Last administered on 17:51; Start 04/01/17 at 12:30 Sodium Chloride 250 ml @ 250 mls/hr BOLUS ONCE IV Last administered on 22:45; Start 04/01/17 at 22:45; Stop 04/01/17 at 23:44; Status DC Sodium Chloride 250 ml @ 15 mls/hr ONCE ONCE IV ; Start 04/02/17 at 10:45; Stop 04/03/17 at 03:24; Status DC Acetaminophen (Tylenol) 650 mg Q4H PRN PO SEE LABEL COMMENTS Last administered on 04/07/17 08:07; Start 04/02/17 at 10:45; Stop 04/07/17 at 08:31; Status DC Diphenhydramine HCl (Benadryl) 25 mg Q4H PRN PO SEE LABEL COMMENTS Last administered on 04/03/17 05:26; Start 04/02/17 at 10:45 Furosemide (Lasix Inj) 20 mg ONCE ONCE IV ; Start 04/02/17 at 10:45; Stop 04/02 at 11:18; Status DC Warfarin Sodium (Coumadin) 4 mg DAILY@1600 PO ; Start 04/04/17 at 16:00; Stop at 16:00; Status DC Warfarin Sodium (Coumadin) 1 mg ONCE ONCE PO Last administered on 04/03/17 17 :23; Start 04/03/17 at 16:45; Stop 04/03/17 at 16:46; Status DC Fluconazole (Diflucan) 200 mg DAILY PO Last administered on 04/07/17 08:08; Start 04/06/17 at 09:00 Warfarin Sodium (Coumadin) 2 mg ONCE ONCE PO Last administered on 04/06/17 16 :00; Start 04/06/17 at 16:00; Stop 04/06/17 at 16:01; Status DC Warfarin Sodium (Coumadin) 3 mg DAILY@1600 PO ; Start 04/07/17 at 16:00 Date of Insertion: Mar 03, 2017 A/P Problem List: (1) CVA (cerebral vascular accident) ICD Code: I63.9 - Cerebral infarction, unspecified Status: Acute (2) A-fib ICD Code: I48.91 - Unspecified atrial fibrillation Status: Chronic (3) DM (diabetes mellitus) ICD Code: E11.9 - Type 2 diabetes mellitus without complications Status: Chronic (4) Hyponatremia ICD Code: E87.1 - Hypo-osmolality and hyponatremia Status: Acute Assessment and Plan 60 year-old male with past medical history of paroxysmal A. fib, hypertension, stage III non-Hodgkin's lymphoma status post chemotherapy who came into the hospital with altered mental status. PEG tube site cellulitis - ID following, appreciate their assistance - wound culture positive for Kleb pneumo sensitive to Levaquin - SP treatment with IV Levaquin x 5 days however there is still purulence observed. Continue wound care. Reculture wound. - As per Wound care recommendations. Cleanse around PEG tube site with normal saline and apply drain sponge around tube secure tube and drain sponge with medifix tape change as needed. Please use skin prep before applying adhesives to skin. Continue. 03/23 purulent discharge observed from PEG site - re ordered wound culture and will reconsult ID. 03/24 ID reconsulted recommendations pending. Patient with low grade fever overnight with a tmax of 99.7. Will start on Iv broad spectrum antibiotics ( Vancomycin and Zosyn IV), check blood cultures, CXR and urinalysis 03/25 UA (+) with urine culture growing gram negative rods. Continue IV zosyn and fu ID recommendations. blood cultures negative. Consult infectious GI to asses PEG tube. 03/26 GI recommendations pending regarding PEG tube. Continue IV zosyn for now. 03/27 Continue antibiotics as per ID. Continue Zosyn, repeat cultures if febrile. 03/24 Urine culture is growing pseudomonas. 04/01 urine cx with no growth x 48hrs. 03/23 wound culture growing MDR pseudomonas. GI reconsulted however patient no seen yet. Will reconsult GI again. 03/25 BCX with no growth x 5 days. 04/04 wound culture Sharri and group D enterococcus. Fever -Patient continues to have fever. - uncertain source patient has no leukocytosis. - Patient currently on Zosyn - Blood cultures show no growth, CXR shows mild interstitial prominence. UA negative. Sputum cx growing Pseudomonas. Follow up on urine cx results wound culture positive for yeast species. PEG wound cultures growing Sharri and group D enterococcus. -Pending repeat blood cultures pending. -Dealt with Dr. Alvarez. Will order MRI of the liver with and without contrast. CAREN - Resolved. 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 - CT of the abdomen showed bladder mass right posteriorly with apparent extravesical extension and clot formation. - Urology spoke with family member, daughter, states that he's not recommending biopsy of the bladder mass. However daughter insisted on biopsy. Patient s/p cystoscopy and palliative transurethral resection of bladder tumor greater than 5 cm originating from right bladder wall performed by Dr. Sewell . 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 - Oncology following - appreciate their assistance. Family requesting aggressive therapy. CT chest negative for malignancy. MRI completed. Patient is not a candidate for chemotherapy. Family has decided on palliative XRT treatment and would like it to start MIGEL. Consult placed for radiation oncology. - Palliative care following, appreciate their assistance. - Continue to flush lopez catheter PRN. Monitor for recurrence of hematuria - Patient is currently undergoing radiation therapy. Monitor for side effects. - 03/28 Mild hematuria today, continue to monitor urine output or for side effects. Hold Coumadin for now until hematuria resolves. Resume Coumadin once hematuria resolves. - 03/29 Continues on Coumadin. No observed hematuria. - 04/02 Liver US shows small hypoechoic lesion in the right hepatic lobe that is not convincing for a cyst or other benign structure. A small metastatic lesion would be in the differential. Hepatomegaly. Sludge and small stones in the gallbladder. No evidence of cholecystitis or biliary obstruction. - 04/04 pinkish urine in bag. Will continue on Coumadin for now. Monitor H/ H closely. Monitor INR closely. Patient has completed 01/27 radiations treatments. 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 Intermittently tracks with eyes. - Continue Keppra 500mg BID for seizure prophylaxis. Keppra level 17.8. - PT/OT signed off as patient is unable to participate. - On Paxil 20 by mouth daily for depression. - On acetaminophen with codeine for pain scale of 2-10. - Morphine 1 mg every 24 hours when necessary for dressing change Chronic respiratory failure secondary to CVA - Status post tracheostomy. Continue pulmonary toilet and bronchodilators as needed. Continue trach care, suctioning. Increased secretions improved with scheduled Levsin. Decreased dosing of scheduled Levsin to q8h. - Pulmonary currently following, appreciate assistance. - Duo nebs every 4 hours while awake Atrial fibrillation, controlled Hypertension Dyslipidemia - Continue rate control with Cardizem and metoprolol. - [id number] score 4 - Echocardiogram in November 2015 shows preserved ejection fraction. - continue on Coumadin. Pharmacy to dose. Continue to monitor INR. - Continue aspirin - Continue on Cardizem 60mg QID History of non-Hodgkin's lymphoma - Status post brain biopsy on December 13 by neurosurgery. Pathology consistent with acute infarct without evidence of lymphoma. Diabetes mellitus Type 2 - Hemoglobin A1c is 5.5. - Fingersticks have been stable and were DC'd 02/01/17 - 03/24 Blood sugar uncontrolled - continue Accu-Cheks and SSI with insulin NovoLog. - 03/27 Blood sugar severely elevated in the 200's. continue SQ Levemir 5 units SQ BID. continue SSI with insulin Novolog. - 03/28 sugars still very elevated above the 200s. continue Levemir subcutaneously to 10 units subcutaneously twice a day. Continue SSI with insulin NovoLog. Continue to monitor Accu-Cheks. Decubitus ulcer stage IV - Status post wide excision of sacral skin and biopsy of the cavity lining with debridement on 07/22/16. - Continue pressure relief measures including turning and positioning. Continue to monitor. - Patient's family has declined a diverting colostomy. Previous Wound culture growing Klebsiella and Enterococcus Faecalis. Previously on Augmentin. - Wound care last saw patient on 03/14/17, no new recommendations continue packing with Betadine moistened rolled Janis and covered with ABD pad and paper tape to secure. - Morphine 1 mg every 24 hours when necessary for dressing change -Reconsult wound care. Protein calorie malnutrition Gastroesophageal reflux disease Gastric ulcer, reflux esophagitis Diarrhea, negative for C. difficile. Improved - EGD on 07/30/16 showed gastric ulcers. Continue on Prevacid 30 mg Q12. - G/J tube clogged, IR consulted to evaluate. Replaced on 02/25/17 - TF held 03/16 due to emesis. No recurrence. TF resumed yesterday - patient tolerating. Mash [employer]inder consulted to assist with rate/needs. Per their recommendations, Rec increasing TF'ing 10ml/hr Q 6hr, as tolerated, to goal rate 55ml/hr. Rec to discontinue the Ashish r/t pt has received Ashish for Rec dosing of 4-weeks to promote new tissue growth. - Continue bowel regimen with hold parameters, Lactinex and Imodium. Klebsiella/Pseudomonas/staph aureus HCAP PSAE UTI - S/p Cefepime. Monitor for signs of infections. - strep pneumonia and Legionella urinary Ag is negative - C-diff PCR negative on 01/13 - 01/09 BC : Staph Epi, Urine cx: Pseudomonas, Sputum cx: Pseudomonas, kleb, Staph. - Patient was pancultured on 01/19 (Blood, sputum, urine) NGTD in urine and blood. Sputum + for pseudomonas. Likely colonization. - CXR 04/03/17 shows small lung volumes, mild interstitial prominence without focal infiltrate. Sputum cx pending. Hyponatremia - resolved Anemia - sp transfusion of 1 unit of PRBC on 03/24. Hemoglobin responded appropriately from 6.8 and 8.1. - Stool Hemoccult negative. - Continue to monitor cbc. - 04/01 Hemoglobin decr at 7.0. Transfuse for hemoglobin < 7. - 04/02 Hemoglobin 6.9, transfused 2units PRBCs. Good response with f/u hgb 9.0 - small amount of active bleeding from PEG site and sacral wound as well as pinkish urine in bag. Follow CBC closely. DVT prophylaxis: SCDs Dealt with patient's nurse at the bedside. Discharge Planning pt to complete radiation therapy in house prior to be discharged to [facility] Problem Qualifiers (1) CVA (cerebral vascular accident): (2) DM (diabetes mellitus): Patsy Wilkes MD Apr 07, 2017 11:39
--- NOTE | 2017-04-07 12:14 | HHI.GIFU ---
Subjective Remarks Reconsulted for PEG tube site infection. This was converted from G/J to G tube by IR on 02/25/17. The tube itself is patent and he is tolerating TF. However, there is a moderate amount of purulent drainage and some erythema at site. (Cielo Sorensen) Objective Vitals I&O Vital Signs Date Time Temp Pulse Resp B/P (MAP) Pulse Ox O2 Delivery O2 Flow Rate FiO2 04/07/17 12:02 94 T-piece 5.00 28 04/07/17 08:00 100.5 134 44 154/89 (110) 91 04/07/17 04:00 101.0 122 28 139/76 (97) 94 04/07/17 00:00 100.4 113 24 143/72 (95) 98 04/06/17 20:40 T-Piece 5.00 04/06/17 20:00 98.3 112 22 132/78 (96) 97 04/06/17 16:00 99.8 115 18 131/71 (91) 98 I/O 04/06/17 04/06/17 04/06/17 04/07/17 04/07/17 04/07/17 07:00 15:00 23:00 07:00 15:00 23:00 Intake Total 1836 ml 100 ml 1100 ml 817 ml 0 ml Output Total 500 ml 1070 ml 1050 ml Balance 1336 ml 100 ml 30 ml -233 ml 0 ml Intake Oral 0 ml 0 ml 0 ml 0 ml IV Total 1100 ml 100 ml 1100 ml 100 ml Tube Feeding 696 ml 657 ml Tube Irrigant 40 ml 60 ml Output Urine Total 500 ml 1070 ml 1050 ml # Bowel Movements 1 2 1 Laboratory Laboratory Tests Test 04/06/17 13:39 04/07/17 06:55 White Blood Count 4.2 4.2 Red Blood Count 3.26 3.23 Hemoglobin 8.2 8.5 Hematocrit 24.5 24.4 Mean Corpuscular Volume 75.3 75.4 Mean Corpuscular Hemoglobin 25.3 26.2 Mean Corpuscular Hemoglobin Concent 33.6 34.8 Red Cell Distribution Width 23.2 23.0 Platelet Count 75 77 Mean Platelet Volume 8.2 8.4 Blood Urea Nitrogen 29 27 Creatinine 1.20 1.18 Random Glucose 178 200 Calcium Level 9.0 8.7 Sodium Level 142 141 Potassium Level 3.8 3.8 Chloride Level 108 107 Carbon Dioxide Level 24.5 24.7 Anion Gap 10 9 Estimat Glomerular Filtration Rate 62 63 Prothrombin Time 18.1 Prothromb Time International Ratio 1.6 Date/Time Source Procedure Growth Status 04/06/17 00:44 Blood Peripheral Aerobic Blood Culture - Preliminary NO GROWTH IN 1 DAY Resulted 04/06/17 00:44 Blood Peripheral Anaerobic Blood Culture - Preliminary NO GROWTH IN 1 DAY Resulted 03/24/17 00:00 Stool Stool Stool Occult Blood (AISHA) - Final HEMOCCULT NEGATIVE Complete 04/04/17 02:40 Sputum Endotracheal Gram Stain - Final Complete 04/04/17 02:40 Sputum Culture - Final Pseudomonas Aeruginosa Complete 04/03/17 15:25 Urine Catheterized Urine Urine Culture - Final Complete 04/04/17 18:40 Wound Skin Gram Stain - Final Complete 04/04/17 18:40 Wound Culture - Final Sharri Tropicalis Group D Enterococcus Complete Imaging Last Impressions Chest X-Ray 04/03/17 0000 Signed Impressions: Service Date/Time: March 15:58 - CONCLUSION: Small lung volumes remain. Mild interstitial prominence without focal infiltrate. Sheldon Garcia MD Liver Ultrasound 04/02/17 0000 Signed Impressions: Service Date/Time: Sunday, April 02, 2017 18:36 - CONCLUSION: 1. Small hypoechoic lesion in the right hepatic lobe that is not convincing for a cyst or other benign structure. A small metastatic lesion would be in the differential. I don't clearly see it on the prior CTs. Abdomen MRI with and without contrast may be helpful. 2. Hepatomegaly. 3. Sludge and small stones in the gallbladder. No evidence of cholecystitis or biliary obstruction. Glen Moore MD Brain MRI 03/14/17 0000 Signed Impressions: Service Date/Time: Tuesday, March 14, 2017 12:41 - CONCLUSION: The signal abnormality and enhancement within the bilateral occipital lobes and colin have decreased since the prior examinations. No new abnormality is identified. There is no new enhancing area or signs of a recent ischemia. Glen Gordon MD Chest CT 03/10/17 0000 Signed Impressions: Service Date/Time: Friday, March 10, 2017 21:00 - CONCLUSION: 1. Periaortic soft tissue along the proximal descending thoracic aorta not previously seen. This represents either lymphomatous involvement or adjacent consolidated airspace disease. 2. Mild bilateral airspace disease 3. No evidence of significant lymphadenopathy involving the mediastinum, hilar regions, axillas or supraclavicular lore chain. 4. Tracheostomy tube in place. Ernesto Kulkarni MD Abdomen/Pelvis CT 02/27/17 0000 Signed Impressions: Service Date/Time: February 02:24 - CONCLUSION: 1. Abdominal aortic aneurysm. 2. Bladder mass is noted on the right posteriorly with apparent extravesical extension and clot formation. 3. Left renal cyst. 4. Left lower lobe atelectasis. 5. Large sacral decubitus ulcer with bony destruction and sclerosis of the sacrum mid to left lateral portion in the region of S3 and inferiorly which would suggest chronic osteomyelitis in the appropriate clinical setting. Rajan Granados MD Soft Tissue Ultrasound 02/26/17 0000 Signed Impressions: Service Date/Time: Sunday, February 26, 2017 12:52 - CONCLUSION: 1. Just inferior to the G-tube in the left abdomen, there is a superficial 3.8 x 2.9 0.9 cm complex fluid collection in the subcutaneous tissues. 2. Findings are nonspecific. This could represent a small seroma or abscess. Would consider CT scan of the abdomen without contrast for further evaluation to determine if there is intraperitoneal extension. Bobby Gray MD Gastrostomy Tube Placement 02/25/17 0000 Signed Impressions: Service Date/Time: Saturday, February 25, 2017 14:19 - CONCLUSION: Uncomplicated exchange of gastroenteric feeding tube for gastrostomy tube as above. Positioning confirmed. The tube can be used immediately. Glen Zamora MD Tube Change 02/14/17 0000 Signed Impressions: Service Date/Time: Tuesday, February 14, 2017 00:00 - CONCLUSION: Uncomplicated gastrojejunostomy tube exchange as above. Scott Griffin MD Head CT 01/09/17 0000 Signed Impressions: Service Date/Time: December 17:43 - CONCLUSION: 1. No acute hemorrhage or mass effect. 2. 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 3. Atrophy. Gerald Mukherjee MD CT Angiography 01/09/17 0000 Signed Impressions: Service Date/Time: December 17:49 - CONCLUSION: 1. No evidence of pulmonary emboli. 2. Patchy consolidation in both posterior lower lobes right greater than left. This could represent pneumonia. 3. 2 small noncalcified pulmonary nodules which are nonspecific finding. Short-term CT followup is recommended beginning in 6 months with a noncontrast outpatient CT. Gerald Mukherjee MD Tube Check 12/04/16 0000 Signed Impressions: Service Date/Time: Sunday, December 04, 2016 17:58 - CONCLUSION: Uncomplicated tube injection as above. the tube is in good position and functions normally. Moises Ramírez MD Abdomen X-Ray 08/31/16 0000 Signed Impressions: Service Date/Time: Wednesday, August 31, 2016 16:36 - CONCLUSION: 1. No acute findings. Mild constipation. Durga Dotson MD Head Magnetic Resonance Angiography 03/05/16 0000 Signed Impressions: Service Date/Time: Saturday, March 05, 2016 09:26 - CONCLUSION: Persistent high-grade subtotal occlusive stenotic lesions in the distal right vertebral artery and proximal basilar artery with significant improvement in flow and recanalization following initial presentation of thrombosis. Stable interstitial circulation without significant stenosis. Ernesto Kulkarni MD Neck Magnetic Resonance Angiography 12/22/15 1445 Signed Impressions: Service Date/Time: Tuesday, December 22, 2015 09:22 - CONCLUSION: Variant origin of the left vertebral artery from the aortic arch. No evidence of carotid stenosis. Glen Zamora MD Head/Brain Mag Res Venography 12/22/15 0000 Signed Impressions: Service Date/Time: Tuesday, December 22, 2015 09:22 - CONCLUSION: Normal MRV. Jonel Jones Jr., MD Physical Exam HEENT: Normocephalic; atraumatic; no jaundice. CHEST: Scattered rhonchi. Tracheostomy-TBar CARDIAC: RRR. ABDOMEN: Soft, round, nondistended, nontender; no hepatosplenomegaly; bowel sounds are present in all four quadrants. G tube site with small amount of erythema, moderate amount of purulent drainage. EXTREMITIES: Generalized edema. S[employer]IOR [employer]: Resting with eyes open, does not follow commands (Cielo Sorensen) Assessment and Plan Plan ASSESSMENT: - Reconsulted for PEG tube site infection. Wd. Cx with Sharri Tropacalis, Gr D enterococcus. Zosyn. Diflucan. ID following. Will leave tube in place for now and continue abx and see how he responds to abx, unless ID recommends it being removed. - Dysphagia. Pt had multiple clogged G/J tubes requiring frequent exchanges. S /P conversion of G/J tube exchanged to G tube (02/27/17) by IR. - Gastric ulcer. EGD (07/30/16)----> Gastric ulcer/Reflux Esophagitis/Residual gastric juices. He has not had repeat EGD. S/P Rpt. EGD (02/26/17)----> normal upper endoscopy. G tube in place. 8.5/.4. - Chronic resp. failure. S/P trach. T Bar. per attending. 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 PLAN: - TF as tolerated - Cont abx as recommended by ID - Monitor labs - Supportive care - Further recommendations to follow based on results of above - Pt seen and examined by Dr. Gibbons and myself and this note is written on his behalf (Cielo Sorensen) Physician Comments Patient seen and examined Agree with above Monitor labs Continue with current supportive care PEG site in fact looks pretty good the PEG tube was loose and there was a small amount of leakage I did pull the PEG tube back into place and secure it so as to reduce leakage But for now we'll continue with current supportive care and monitor closely (Sampson Gibbons MD) Cielo Sorensen Apr 07, 2017 12:12 Sampson Gibbons MD Apr 07, 2017 22:08
--- NOTE | 2017-04-07 15:51 | HHI.HCPN ---
Reason for visit a. To assist with evaluation and management of symptoms including: dyspnea, encephalopathy, depression b. To assist medical decision maker(s) with: better understanding of current medical conditions; weighing benefits/burdens of medical treatment options; making medical treatment decisions. Subjective/Interval History Palliative care RECONSULTED 03/10/17 on this pt, pt well known to Palliative Care. Pt has remained stable in med surg unit. Briefly in ICU last month for dyspnea/ resp distress, on mech vent for several days. Has remained stable on 29% fio2 to trach since then. Palliative care reconsulted at this time due to no findings of 5 x 3.5 cm bladder mass. Status post cystoscopy, biopsy. Pathology positive small cell carcinoma. Oncology has evaluated, reports would be difficult to provide chemotherapy to this patient due to multiple chronic medical issues, and chronically debilitated state. Oncology Recommends further follow-up/consultation with Dr. Whyte patient known oncologist from prior lymphoma (11/2015), as well as CT chest, and palliative care consult to clarify goals of treatment. * Patient has remained stable. S/p CT chest per oncology r/o metastatic disease , CT chest negative. S/p radiation oncology evaluation / Dr Lincoln notes that a brief course of palliative radiation could be considered, but would pose risk of additional pelvic complications, and would still expect disease process to continue. notes discussion w pt daughter, recommends hospice, though leaves the decision to the children. * pt undergoing palliative XRT-- last txs should occur week of 04/08/17 Palliative received call from med attending, requesting additional follow up with family RE goals of tx. D/w med attending. Pt has had hematuria, as well as some bloody oozing from sacral wound. INR therapeutic. Coumadin being continued. H&H dropped last week ; hemoglobin 6.9 , transfused 2 units RBC 04/02/17, H&H stable today 8.5/24.4, platelets 77. Also febrile, MAXIMUM TEMPERATURE 101. On Zosyn, fluconazole per ID. Blood culture 04/06 no growth 1 day. Wound culture from abdominal wound positive Sharri, group D enterococcus. GI has been reconsulted for possible infection around PEG site. Discuss with primary nurse. Patient initially off unit for MRI at time of my arrival, returned again later 1630 to assess pt/complete PE, pt still not back from MRI Following exam call to ex Leanne--review with her current condition, assessments, treatments in place, status post radiation simulation today. She expresses that yesterday nursing called because family with concerns regarding dressing changes it appeared that maybe the dressings were being done daily, family was concerned regarding pulse oximetry, and they wanted radiation to begin as soon as possible, Leanne indicates that everything has been settled and addressed and they have no additional concerns. Review that radiation is not curative. She informs that radiation oncologists told her patient would go for 10 total treatments she asks if it will be more than once a day. Explore that generally radiation is once per day, though I am not certain of his exact schedule yet. She has questions regarding his pain medication regimen, review with her that he has available morphine 1 mg every 24 hours as well as Tylenol with codeine --she requests that patient be premedicated with Tylenol with codeine before dressing changes as well as before transporting to radiation, she does not think patient pain would be requiring morphine at this point. All questions answered to the best of my ability, she is appreciative of the update on phone call. She has palliative contact number as does the rest of the family. --Discuss all with primary nurse. Of note per [place] Statutes, medical proxy decision making would fall to the majority of adult children, as Mr. Flores is not legally . His ex Leanne and children ALL participate in decision making, with dtr Leanne and ex Leanne serving as primary points of contact. History brought forward from initial consult by Rita MOCTEZUMA on 01/10/16: This 59-year-old patient was admitted on 12/21/15 via the ED for facial drooping. ED physician notes that patient and patients are poor historians, EMS reported the could not provide good timelines to them. Patient also reported headache, difficulty ambulating. He had known history of recent findings of mass in the brain. During ED course had deterioration of clinical condition and able to protect his airway, unable to follow commands patient was intubated and CT brain obtained. He was admitted for further evaluation and management to the ICU. Pharmacist Manager was consulted and following patient. Pathology on recent brain biopsy (12/13) still pending. CLINICAL/HOSPITAL COURSE: * CT brain= no focal or acute intracranial hemorrhage. New area decreased density in left occipital lobe suggestive of recent nonhemorrhagic infarct, decreased density in previously noted right occipital lobe has increased in size * Brain MRI = new area of restricted diffusion within left occipital lobe suggesting acute infarct. Interval enlargement of the area of restricted diffusion within right occipital lobe suggesting probable extension of right occipital and started on. Underlying enhancement of right occipital lobe is slightly worse than the previous exam and nonspecific. Biopsy has been performed and results are pending. Tiny focal area of restricted diffusion within right cerebellar hemisphere consistent with probable acute/subacute lacunar infarct. Signal abnormality in the SWI sequence within the right occipital lobe suggesting some hemorrhage in biopsy bed. No midline shift or extra-axial fluid collections. * CXR= no acute cardiopulmonary disease * -Neurology consulted, ordered MRA to look for vertebrobasilar stenosis, echo done last admission notes normal EF with normal valves and normal left atrial size. EEG also ordered. MR venogram ordered. EEG= abnormal study consistent with her encephalopathy. MRV indicated basilar occlusion; neurology notes discussion with family regarding chemical code only, also notes discussion regarding risks associated with the anticoagulates, was discussed with radiologist/INR recommended not helpful to extract basilar clot as this could result in patient's . It was felt the colin was infarcted. Further neurology notes "he could be locked in", is acting as if colin is infarcted. * Oncology known to patient also consulted for non-Hodgkin's lymphoma: Dr Whyte documents that there was no evidence of residual or recurrent disease on CT scans of chest, abdomen, pelvis done in October and November of this year. Pathology was still pending, had been sent to [facility] for second opinion. No acute oncology interventions recommended at that time, will follow. * 6 - 6/ febrile. CPAP trials. Remains on vent off of sedation. Withdrawing to pain. Repeat brain MRI= evolving brainstem stroke. Neurology notes extensive discussion with family, notes discussion the patient is locked in but fully aware, family would like to see help patient does over the next 3 months. 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 Biopsy brain lesion appears consistent with acute infarct no lymphoma. Family desires ongoing aggressive measures, will proceed with tracheostomy. Sputum culture positive sensitive Klebsiella. * 01/01 tracheostomy, PEG tube placement * 01/04 trach collar trials, alternating with T piece. Low-grade fever 100.5. CXR = mild bibasilar atelectasis. Neuro: Spontaneously opening eyes, looking up / down, directionally to commands. * 01/07 still "locked in " , transferred off ICU to regular floor. * 01/08 pulmonology consulted-not CXR clear no evidence of pulmonary infection. He may have some underlying COPD recommends continued aerosol treatments. Further notes long discussion with family at bedside regarding tracheostomy, long-term use of trach until patient able to protect his airway, no further recommendations. Palliative care consulted to assist with clarification of goals of treatment. Family/friend interactions call to ex Leanne- Explore recent events over the past week diagnostics, transfusions, liver findings, etc. treatments in place, XRT planned to be completed this week. She indicates that the family is having ongoing conversations regarding patient's wishes and treatments going forward. She indicates that last week he had periods where he was wakeful and communicative with family and that when presented with continuing to complete his XRT that he indicated to them he still wish to keep trying. She understands it will be completing this week, and the family is discussing new findings and what may or may not be able to be done for this. Again review with her that patient has multiple issues, and is expected to continue to have complications/setbacks and will likely continue to decline until he dies from this. She acknowledges understanding of this, and indicates she and the children will be talking more as they do not want the patient to suffer. They're struggling to get his mother on the same page and understand as she wants to continue to try to do everything to help the patient lives as long as possible. For today no changes in goals however she will be continuing to communicate with the family and will contact palliative later this week if they desire a family meeting, with palliative or other providers. . Advance Directives Living Will: Never completed Health Care Surrogate: Never completed Objective Vital Signs Date Time Temp Pulse Resp B/P (MAP) Pulse Ox O2 Delivery O2 Flow Rate FiO2 04/07/17 12:02 94 T-piece 5.00 35 04/07/17 12:02 94 T-piece 5.00 35 04/07/17 12:00 97.7 122 27 130/79 (96) 99 04/07/17 08:00 100.5 134 44 154/89 (110) 91 04/07/17 04:00 101.0 122 28 139/76 (97) 94 04/07/17 00:00 100.4 113 24 143/72 (95) 98 04/06/17 20:40 T-Piece 5.00 04/06/17 20:00 98.3 112 22 132/78 (96) 97 04/06/17 16:00 99.8 115 18 131/71 (91) 98 Intake & Output 04/07/17 04/07/17 07:00 19:00 Intake Total 917 ml 0 ml Output Total 1050 ml Balance -133 ml 0 ml Intake Oral 0 ml 0 ml IV Total 200 ml Tube Feeding 657 ml Tube Irrigant 60 ml Output Urine Total 1050 ml # Bowel Movements 1 Physical Exam pt off unit , unable to complete PE . Diagnostic Tests Laboratory Laboratory Tests Test 04/04/17 18:15 04/05/17 05:35 04/05/17 05:38 04/06/17 06:50 Stool C. difficile Toxin (PCR) NEGATIVE (NEGATIVE) Stl C. difficile Toxin Epiderm 027 PRESUMPTIVE NEGATIVE Blood Urea Nitrogen 28 MG/DL (7-18) Creatinine 1.36 MG/DL (0.60-1.30) Random Glucose 169 MG/DL (74-106) Total Protein 8.4 GM/DL (6.4-8.2) Albumin 1.7 GM/DL (3.4-5.0) Calcium Level 9.7 MG/DL (8.5-10.1) Alkaline Phosphatase 298 U/L (45-117) Aspartate Amino Transf (AST/SGOT) 120 U/L (15-37) Alanine Aminotransferase (ALT/SGPT) 33 U/L (12-78) Total Bilirubin 0.3 MG/DL (0.2-1.0) Sodium Level 141 MEQ/L (136-145) Potassium Level 3.9 MEQ/L (3.5-5.1) Chloride Level 105 MEQ/L (98-107) Carbon Dioxide Level 26.7 MEQ/L (21.0-32.0) Anion Gap 9 MEQ/L (5-15) Estimat Glomerular Filtration Rate 53 ML/MIN (>89) White Blood Count 4.9 TH/MM3 (4.0-11.0) Red Blood Count 3.90 MIL/MM3 (4.50-5.90) Hemoglobin 9.9 GM/DL (13.0-17.0) Hematocrit 29.6 % (39.0-51.0) Mean Corpuscular Volume 75.9 FL (80.0-100.0) Mean Corpuscular Hemoglobin 25.4 PG (27.0-34.0) Mean Corpuscular Hemoglobin Concent 33.5 % (32.0-36.0) Red Cell Distribution Width 22.5 % (11.6-17.2) Platelet Count 85 TH/MM3 (150-450) Mean Platelet Volume 8.1 FL (7.0-11.0) Neutrophils (%) (Auto) 69.6 % (16.0-70.0) Lymphocytes (%) (Auto) 18.3 % (9.0-44.0) Monocytes (%) (Auto) 7.7 % (0.0-8.0) Eosinophils (%) (Auto) 3.5 % (0.0-4.0) Basophils (%) (Auto) 0.9 % (0.0-2.0) Neutrophils # (Auto) 3.4 TH/MM3 (1.8-7.7) Lymphocytes # (Auto) 0.9 TH/MM3 (1.0-4.8) Monocytes # (Auto) 0.4 TH/MM3 (0-0.9) Eosinophils # (Auto) 0.2 TH/MM3 (0-0.4) Basophils # (Auto) 0.0 TH/MM3 (0-0.2) CBC Comment AUTO DIFF Differential Total Cells Counted 100 Neutrophils % (Manual) 65 % (16-70) Band Neutrophils % 10 % (0-6) Lymphocytes % 8 % (9-44) Monocytes % 6 % (0-8) Eosinophils % 7 % (0-4) Basophils % 1 % (0-2) Neutrophils # (Manual) 3.8 TH/MM3 (1.8-7.7) Metamyelocytes 3 % (0-1) Nucleated Red Blood Cells 3 /100 WBC (0-0) Differential Comment FINAL DIFF MANUAL Prothrombin Time 30.8 SEC (9.8-11.6) 24.6 SEC (9.8-11.6) Prothromb Time International Ratio 2.7 RATIO 2.2 RATIO Test 04/06/17 13:39 04/07/17 06:55 White Blood Count 4.2 TH/MM3 (4.0-11.0) 4.2 TH/MM3 (4.0-11.0) Red Blood Count 3.26 MIL/MM3 (4.50-5.90) 3.23 MIL/MM3 (4.50-5.90) Hemoglobin 8.2 GM/DL (13.0-17.0) 8.5 GM/DL (13.0-17.0) Hematocrit 24.5 % (39.0-51.0) 24.4 % (39.0-51.0) Mean Corpuscular Volume 75.3 FL (80.0-100.0) 75.4 FL (80.0-100.0) Mean Corpuscular Hemoglobin 25.3 PG (27.0-34.0) 26.2 PG (27.0-34.0) Mean Corpuscular Hemoglobin Concent 33.6 % (32.0-36.0) 34.8 % (32.0-36.0) Red Cell Distribution Width 23.2 % (11.6-17.2) 23.0 % (11.6-17.2) Platelet Count 75 TH/MM3 (150-450) 77 TH/MM3 (150-450) Mean Platelet Volume 8.2 FL (7.0-11.0) 8.4 FL (7.0-11.0) Blood Urea Nitrogen 29 MG/DL (7-18) 27 MG/DL (7-18) Creatinine 1.20 MG/DL (0.60-1.30) 1.18 MG/DL (0.60-1.30) Random Glucose 178 MG/DL (74-106) 200 MG/DL (74-106) Calcium Level 9.0 MG/DL (8.5-10.1) 8.7 MG/DL (8.5-10.1) Sodium Level 142 MEQ/L (136-145) 141 MEQ/L (136-145) Potassium Level 3.8 MEQ/L (3.5-5.1) 3.8 MEQ/L (3.5-5.1) Chloride Level 108 MEQ/L (98-107) 107 MEQ/L (98-107) Carbon Dioxide Level 24.5 MEQ/L (21.0-32.0) 24.7 MEQ/L (21.0-32.0) Anion Gap 10 MEQ/L (5-15) 9 MEQ/L (5-15) Estimat Glomerular Filtration Rate 62 ML/MIN (>89) 63 ML/MIN (>89) Prothrombin Time 18.1 SEC (9.8-11.6) Prothromb Time International Ratio 1.6 RATIO Result Diagram: 04/07/1765404/07/17654 Microbiology Microbiology Date/Time Source Procedure Growth Status 04/06/17 00:44 Blood Peripheral Aerobic Blood Culture - Preliminary NO GROWTH IN 1 DAY Resulted 04/06/17 00:44 Blood Peripheral Anaerobic Blood Culture - Preliminary NO GROWTH IN 1 DAY Resulted 04/06/17 00:39 Blood Peripheral Aerobic Blood Culture - Preliminary NO GROWTH IN 1 DAY Resulted 04/06/17 00:39 Blood Peripheral Anaerobic Blood Culture - Preliminary NO GROWTH IN 1 DAY Resulted 04/04/17 18:40 Wound Skin Gram Stain - Final Complete 04/04/17 18:40 Wound Culture - Final Sharri Tropicalis Group D Enterococcus Complete Imaging Last Impressions Chest X-Ray 04/03/17 0000 Signed Impressions: Service Date/Time: March 15:58 - CONCLUSION: Small lung volumes remain. Mild interstitial prominence without focal infiltrate. Sheldon Garcia MD Liver Ultrasound 04/02/17 0000 Signed Impressions: Service Date/Time: Sunday, April 02, 2017 18:36 - CONCLUSION: 1. Small hypoechoic lesion in the right hepatic lobe that is not convincing for a cyst or other benign structure. A small metastatic lesion would be in the differential . I don't clearly see it on the prior CTs. Abdomen MRI with and without contrast may be helpful. 2. Hepatomegaly. 3. Sludge and small stones in the gallbladder. No evidence of cholecystitis or biliary obstruction. Glen Moore MD Brain MRI 03/14/17 0000 Signed Impressions: Service Date/Time: Tuesday, March 14, 2017 12:41 - CONCLUSION: The signal abnormality and enhancement within the bilateral occipital lobes and colin have decreased since the prior examinations. No new abnormality is identified. There is no new enhancing area or signs of a recent ischemia. Glen Gordon MD Chest CT 03/10/17 0000 Signed Impressions: Service Date/Time: Friday, March 10, 2017 21:00 - CONCLUSION: 1. Periaortic soft tissue along the proximal descending thoracic aorta not previously seen. This represents either lymphomatous involvement or adjacent consolidated airspace disease. 2. Mild bilateral airspace disease 3. No evidence of significant lymphadenopathy involving the mediastinum, hilar regions, axillas or supraclavicular lore chain. 4. Tracheostomy tube in place. Ernesto Kulkarni MD Abdomen/Pelvis CT 02/27/17 0000 Signed Impressions: Service Date/Time: February 02:24 - CONCLUSION: 1. Abdominal aortic aneurysm. 2. Bladder mass is noted on the right posteriorly with apparent extravesical extension and clot formation. 3. Left renal cyst. 4. Left lower lobe atelectasis. 5. Large sacral decubitus ulcer with bony destruction and sclerosis of the sacrum mid to left lateral portion in the region of S3 and inferiorly which would suggest chronic osteomyelitis in the appropriate clinical setting. Rajan Granados MD Soft Tissue Ultrasound 02/26/17 0000 Signed Impressions: Service Date/Time: Sunday, February 26, 2017 12:52 - CONCLUSION: 1. Just inferior to the G-tube in the left abdomen, there is a superficial 3.8 x 2.9 0.9 cm complex fluid collection in the subcutaneous tissues. 2. Findings are nonspecific. This could represent a small seroma or abscess. Would consider CT scan of the abdomen without contrast for further evaluation to determine if there is intraperitoneal extension. Bobby Gray MD Gastrostomy Tube Placement 02/25/17 0000 Signed Impressions: Service Date/Time: Saturday, February 25, 2017 14:19 - CONCLUSION: Uncomplicated exchange of gastroenteric feeding tube for gastrostomy tube as above. Positioning confirmed. The tube can be used immediately. Glen Zamora MD Tube Change 02/14/17 0000 Signed Impressions: Service Date/Time: Tuesday, February 14, 2017 00:00 - CONCLUSION: Uncomplicated gastrojejunostomy tube exchange as above. Scott Griffin MD Head CT 01/09/17 0000 Signed Impressions: Service Date/Time: December 17:43 - CONCLUSION: 1. No acute hemorrhage or mass effect. 2. 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 3. Atrophy. Gerald Mukherjee MD CT Angiography 01/09/17 0000 Signed Impressions: Service Date/Time: December 17:49 - CONCLUSION: 1. No evidence of pulmonary emboli. 2. Patchy consolidation in both posterior lower lobes right greater than left. This could represent pneumonia. 3. 2 small noncalcified pulmonary nodules which are nonspecific finding. Short-term CT followup is recommended beginning in 6 months with a noncontrast outpatient CT. Gerald Mukherjee MD Tube Check 12/04/16 0000 Signed Impressions: Service Date/Time: Sunday, December 04, 2016 17:58 - CONCLUSION: Uncomplicated tube injection as above. the tube is in good position and functions normally. Moises Ramírez MD Abdomen X-Ray 08/31/16 0000 Signed Impressions: Service Date/Time: Wednesday, August 31, 2016 16:36 - CONCLUSION: 1. No acute findings. Mild constipation. Durga Dotson MD Head Magnetic Resonance Angiography 03/05/16 0000 Signed Impressions: Service Date/Time: Saturday, March 05, 2016 09:26 - CONCLUSION: Persistent high-grade subtotal occlusive stenotic lesions in the distal right vertebral artery and proximal basilar artery with significant improvement in flow and recanalization following initial presentation of thrombosis. Stable interstitial circulation without significant stenosis. Ernesto Kulkarni MD Neck Magnetic Resonance Angiography 12/22/15 1445 Signed Impressions: Service Date/Time: Tuesday, December 22, 2015 09:22 - CONCLUSION: Variant origin of the left vertebral artery from the aortic arch. No evidence of carotid stenosis. Glen Zamora MD Head/Brain Mag Res Venography 12/22/15 0000 Signed Impressions: Service Date/Time: Tuesday, December 22, 2015 09:22 - CONCLUSION: Normal MRV. Jonel Jones Jr., MD Procedures * 01/01 tracheostomy, PEG tube placement . 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; EEG indicates encephalopathy, neuro following patient felt to be in a "locked-in "state (2) Non-Hodgkin lymphoma Comment: -In remission status post chemotherapy completed May 2015 (3) Acute respiratory failure Comment: Pulmonology following, medical management (4) A-fib (5) Status post stereotactic brain biopsy (6) Brain lesion Comment: Status post biopsy November 2015; pathology consistent with acute infarct without evidence of lymphoma (7) DM (diabetes mellitus) Symptom Scale: (1) Dysphagia (2) Dyspnea (3) Encephalopathy (4) Malnutrition (5) Depression Pertinent Non-Medical Issues * Psychosocial:Mr. Flores is originally from [place]. He moved to the around 35 years ago, first to [place] and later to [place]. He is not legally but remains with his ex-, Leanne. They have been together for 31+ years and have three children together: Leanne, Gerald, and Ginny. Gerald is currently in [facility] for work. Mr. Flores has 2 brothers and 7 sisters. His father is of old age. His mother is alive and was living with the patient. Greatly enjoys his family. Retired. 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 * Spiritual: * Legal:Patient due to clinical condition is currently unable to participate in medical decision making. Not clear he will regain this ability. Family does not believe he has completed advance directives. per [place] Statutes, medical proxy decision making would fall to the majority of adult children, as Mr. Flores is not legally . His ex Leanne and children ALL participate in decision making, with dtr Leanne and ex Leanne serving as primary points of contact. * Ethical issues impacting care: Important Contacts Leanne, daughter: [phone] Ginny, daughter: [phone] Gerald Flores, son: currently in [facility] for work but has communication with his siblings. Leanne, ex-: [phone] . Prognosis This patient has had 20 day hospital course thus far, admitted on 62 for a large brainstem infarct, bilateral occipital infarcts. He has subsequently had ongoing encephalopathy and severe communication limitations, neurology feels he is in a "locked-in "state. He has suffered from respiratory failure likely secondary to significant CVA. Appears he should be able to survive this acute hospitalization, however not clear when or if he will regain ability to communicate, based on current assessments patient will require long-term care placement. He will remain high risk for potential competition/setbacks due to immobile status including infections, DVT etc. . Code Status: Alternative Code Plan * Legal decision maker - Of note per [place] Statutes, medical proxy decision making would fall to the majority of adult children, as Mr. Flores is not legally . His ex Leanne and children ALL participate in decision making, with dtr Leanne and ex Leanne serving as primary points of contact. * * GOALS: 03/17/17 met with ex- Leanne at length . See subjective for additional detail. In summary:Patient ex- verbalizes that she is now beginning to think that they could be reflecting potential suffering by proceeding with palliative radiation. She shares that the patient has moments of what they feel is pretty clear interaction with the family and that he has wanted to fight and proceed with treatments during his prolonged hospital course up until this point. She feels the patient understands overall poor prognosis related to new cancer findings, and she is not certain he would wish to proceed with radiation. For the most part his mother has been the one most reluctant to not pursue further aggressive measures and she and the children have begun to discuss if they should proceed with radiation however they do not think patient mother will accept or allow this. She is appropriately tearful at times, and indicates that she understands the gravity of current cancer diagnoses and is leaning towards comfort measures however is also struggling to "withhold "nutrition etc. she would not want him to feel hungry. Much exploration with her of end-of-life process. Questions answered to the best my ability. I offered ongoing support and follow-up to her and the rest of the family. Review with her resuscitation status, and that they as a family could elect to change to full DNR to allow the past comfortably should he again experienced respiratory compromiseshe indicates they will talk as a family and she will notify me or they will notify me if they elect DNR status for him. 04/07/17- spoke with ex- Leanne regarding recent course. She has been in communication with the rest of the family. For now they wish to continue XRT as patient communicated to them, as well as current other aggressive treatments. She would like to await MRI findings today, family to have more discussions this week regarding treatment course going forward. She verbalizes that the family does not want him to suffer; however patient mother wants to continue to do everything. She will contact palliative if the family desires additional meeting this week with palliative, and/or other providers. * CODE STATUSalt code-- vent only * Symptoms: == Dysphagia--Status post significant CVA, has had PEG tube placed; no improvement per ST following --prev. trial with a passy mikey valve, patient with no response or attempt to verbalize--intermittently w copoius secretions. ST signed off == Dyspnea --Respiratory failure secondary to CVA, status post tracheostomy, pulmonary following; currently no apparent distress/ O2 sats / O2 requirements stable--O2 sat stable; in ICU briefly last month, required vent, now stable on 28% FiO2 to T piece. 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 == Malnutrition--Status post PEG tube placement. currently tolerating TF; having bowel movements,- s/p GJ tube . Multiple episodes of GJ tube clogs, currently functioning well. Some concern of localized infection around site. 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 Has morphine 1 mg prn for pain, dressing changes etc. also has Tylenol with Codeine available. Last dose morphine 10/22, last dose Tylenol with codeine . Previously expressed some concern about pre-medicating before dressing changes and transfer for radiation, discussed with nursing utilizing Tylenol with codeine to premedicate. Family continues to discuss with nursing when they feel that patient is painful and requires medication. == Nausea/emesis--pt with 2 episodes of coughing and emesis a couple weeks ago, stabilized. No further episodes reported * Palliative care will continue to follow during hospital course as condition evolves, to assist patient/decision-maker with understanding of medical conditions, weighing benefits/burdens of treatment options, for clarification of goals of treatment. Additionally will assist with any symptoms of palliative concern Time Spent Total Floor Time (mins): 20 Attestation To help prompt me to consider important information that might be impacting today's encounter and assessment, information from prior notes written by myself or my colleagues may have been "brought forward" into today's note. My signature on this note, however, is an attestation that I personally performed the exam, history, and/or decision-making noted today, and, unless otherwise indicated, the interactions with patient, family, and staff as well as the review of records all occurred today. I also attest that the listed assessment and stated plan reflect my best clinical judgment today based on the combination of historical information, prior notes, and today's exam/ interactions. When time spent is documented, it refers only to time spent today by the signer, or if indicated, combined time spent today by collaborating physician/nurse practitioner. Tiara Colin Apr 07, 2017 15:51
--- NOTE | 2017-04-07 15:56 | HHI.PR ---
Addendum to Inpatient Note Additional Information pt seen around 1345 full note to follow Violetta Alvarez MD Apr 07, 2017 15:56
--- NOTE | 2017-04-07 16:33 | RADRPT ---
EXAM DATE/TIME: 04/07/2017 15:31 [facility] COMPARISON: CT ABDOMEN & PELVIS W CONTRAST, February 27, 2017, 2:24. US ABDOMEN - LIVER, April 02, 2017, 18:36 . INDICATIONS : Mass. CONTRAST: 16 cc Omniscan (gadodiamide) IV MEDICAL HISTORY : Carcinoma, bladder. Leukemia. Diabetes mellitus type 2. SURGICAL HISTORY : Peg placement. ENCOUNTER: Subsequent ACUITY: 3 months PAIN SCORE: Nonresponsive. LOCATION: abdomen TECHNIQUE: Multiplanar, multisequence magnetic resonance imaging of the abdomen was performed without and with i ntravenous contrast. FINDINGS: Examination quality is significantly degraded secondary to respiratory motion artifact. LIVER: The liver measures 22.7 cm. No fat or a deposition is appreciated. There are innumerable lesions scat tered throughout both lobes of the liver measuring up to 15 mm. These are best visualized on the diff usion sequences. These appear as hypointense following contrast administration. I am unable to determ ine if these enhance given the motion artifact. BILIARY: There is no intra- or extra-hepatic biliary ductal dilatation. No definite gallstones. SPLEEN: Enlarged measuring 17.5 cm. PANCREAS: No acute abnormality is identified. ADRENALS: No acute abnormality is identified. KIDNEYS: There is an 11 mm cyst in the left mid kidney. No hydronephrosis or concerning lesion is seen. OTHER: Aorta is aneurysmal in the infrarenal portion measuring up to 3.2 cm. No lymphadenopathy is visualize d. G-tube is present. CONCLUSION: 1. Hepatomegaly with innumerable lesions scattered throughout both lobes measuring up to 1.5 cm. The appearance is highly suspicious for metastatic disease. Infectious process is also included in the di fferential diagnosis but felt less likely. 2. Nonacute findings include splenomegaly and a fusiform infrarenal aortic aneurysm measuring up to 3 .2 cm. Glen Gordon MD on April 07, 2017 at 16:23 Board Certified Radiologist. This report was verified electronically.
--- NOTE | 2017-04-07 17:02 | HHI.PR ---
Subjective Remarks low grade temp, ? 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 MRI pending Objective Vital Signs Date Time Temp Pulse Resp B/P (MAP) Pulse Ox O2 Delivery O2 Flow Rate FiO2 04/07/17 12:02 94 T-piece 5.00 35 04/07/17 12:02 94 T-piece 5.00 35 04/07/17 12:00 97.7 122 27 130/79 (96) 99 04/07/17 08:00 100.5 134 44 154/89 (110) 91 04/07/17 04:00 101.0 122 28 139/76 (97) 94 04/07/17 00:00 100.4 113 24 143/72 (95) 98 04/06/17 20:40 T-Piece 5.00 04/06/17 20:00 98.3 112 22 132/78 (96) 97 I/O 04/06/17 04/06/17 04/06/17 04/07/17 04/07/17 04/07/17 07:00 15:00 23:00 07:00 15:00 23:00 Intake Total 1836 ml 100 ml 1100 ml 817 ml 0 ml Output Total 500 ml 1070 ml 1050 ml Balance 1336 ml 100 ml 30 ml -233 ml 0 ml Intake Oral 0 ml 0 ml 0 ml 0 ml IV Total 1100 ml 100 ml 1100 ml 100 ml Tube Feeding 696 ml 657 ml Tube Irrigant 40 ml 60 ml Output Urine Total 500 ml 1070 ml 1050 ml # Bowel Movements 1 2 1 Result Diagram: 04/07/17 0655 04/07/17 0655 Procedures 07/22/2016 Wide excision of sacral skin wound, biopsy of the cavity lining and debridement. PEG removal and Gj tube placement 07/29/16 VAC changes- M-W-F 10/23/16, 11/18, 12/31- GJ tube replacement 01/02/16 PEG placement 01/02/16 tracheostomy 02/25/17 PEG replacement 03/03/17 Cystoscopy and palliative transurethral resection of bladder tumor greater than 5cm originating from the right bladder wall Objective Remarks GENERAL: SKIN: Warm and dry. HEAD: Atraumatic. Normocephalic. EYES: Pupils equal and round. No scleral icterus. No injection or drainage. ENT: No nasal bleeding or discharge. Mucous membranes pink and moist. NECK: Trachea midline. No JVD. CARDIOVASCULAR: Regular rate and rhythm. RESPIRATORY: No accessory muscle use. Clear to auscultation. Breath sounds equal bilaterally. GASTROINTESTINAL: Abdomen soft, non-tender, nondistended. Hepatic and splenic margins not palpable. MUSCULOSKELETAL: Extremities without clubbing, cyanosis, or edema. No obvious deformities. NEUROLOGICAL: Awake and alert. No obvious cranial nerve deficits. Motor grossly within normal limits. Five out of 5 muscle strength in the arms and legs. Normal speech. PSYCHIATRIC: Appropriate mood and affect; insight and judgment normal. Laboratory Tests Test 01/05/17 01/06/17 08:35 08:41 Red Blood Count 4.43 MIL/MM3 (4.50-5.90) Hemoglobin 9.9 GM/DL (13.0-17.0) Hematocrit 32.0 % (39.0-51.0) Mean Corpuscular Volume 72.1 FL (80.0-100.0) Mean Corpuscular Hemoglobin 22.3 PG (27.0-34.0) Mean Corpuscular Hemoglobin 30.9 % Concent (32.0-36.0) Red Cell Distribution Width 19.9 % (11.6-17.2) Sodium Level 134 MEQ/L 133 MEQ/L (136-145) (136-145) Random Glucose 136 MG/DL 132 MG/DL (74-106) (74-106) Creatinine 0.59 MG/DL (0.60-1.30) GENERAL: SKIN: Warm and dry. HEAD: Atraumatic. Normocephalic. EYES: Pupils equal and round. No scleral icterus. No injection or drainage. ENT: No nasal bleeding or discharge. Mucous membranes pink and moist. NECK: Trachea midline. No JVD. TRACH. [place] CARDIOVASCULAR: Regular rate and rhythm. RESPIRATORY: No accessory muscle use. Clear to auscultation. Breath sounds equal bilaterally. GASTROINTESTINAL: Abdomen soft, non-tender, nondistended. Hepatic and splenic margins not palpable. MUSCULOSKELETAL: Extremities without clubbing, cyanosis, or edema. No obvious deformities. NEUROLOGICAL: Awake and alert. No obvious cranial nerve deficits. Motor grossly within normal limits. Five out of 5 muscle strength in the arms and legs. Normal speech. PSYCHIATRIC: Appropriate mood and affect; insight and judgment normal. 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 TOILET Brandon Taylor MD Apr 07, 2017 17:02
[2017-04-07] MEDS: PARoxetine HCL SUSP 20 MG/10 ML UDC PEG SCH (17:40)
[2017-04-07 18:06] LABS: BLOOD GAS BASE EXCESS 1.4 mmol/L (-2-2); BLOOD GAS HCO3 25 mmol/L (22-26); BLOOD GAS METHEMOGLOBIN 1.3 % (0-2); BLOOD GAS O2 HGB SATURATION 91 % (90-100); BLOOD GAS PCO2 33 mmHg (38-42); BLOOD GAS PO2 71 mmHg (61-120); CRITICAL VALUE NO; TEMP CORR TO 98.6
[2017-04-07 18:07] LABS: DRAW SITE RT RADIAL; FIO2 35 %; NUMBER OF ARTERIAL PUNCTURES 1; OXYGEN DEVICE TRACH COLLAR; STAT YES
--- NOTE | 2017-04-07 18:26 | RADRPT ---
EXAM DATE/TIME: 04/07/2017 17:37 [facility] COMPARISON: CHEST SINGLE AP, April 03, 2017, 15:58. INDICATIONS : Short of breath. MEDICAL HISTORY : Hypercholesterolemia. Hypertension. Cerebrovascular accident. Atrial SURGICAL HISTORY : None. ENCOUNTER: Subsequent ACUITY: 1 month PAIN SCORE: Non-responsive. LOCATION: Bilateral chest FINDINGS: A single view of the chest demonstrates the lungs to be symmetrically, but under aerated with persist ent interstitial prominence. Depending on chronicity this could represent some vascular congestion or fibrosis. Bibasilar atelectatic changes persist. No associated effusions. Heart size is normal. Endo tracheal tube is stable in position. Osseous structures are intact with some degenerative spurring of the dorsal spine. CONCLUSION: 1. Persistent hypoinflation with mild interstitial prominence. 2. Bibasilar atelectatic changes. No confluent infiltrate or effusion. Bobby Gray MD on April 07, 2017 at 18:23 Board Certified Radiologist. This report was verified electronically.
[2017-04-07 20:00] VITALS: BP 133/78; PULSE 131; RESP 24; TEMP 101.2; O2SAT 97
--- NOTE | 2017-04-07 20:35 | HHI.IDPN ---
Subjective Subjective Remarks persistent low grade fever: MRI done today showed Hepatomegaly with innumerable lesions scattered throughout both lobes measuring up to 1.5 cm. The appearance is highly suspicious for metastatic disease Antibiotics zosyn fluconazole Lines Peripheral IV Past Medical History Hypertension. Stage III non-Hodgkin's lymphoma. Diabetes mellitus. Paroxysmal atrial fibrillation. Brain biopsy in Nov, 2015. History of left arm surgery. 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 Vital Signs Date Time Temp Pulse Resp B/P (MAP) Pulse Ox O2 Delivery O2 Flow Rate FiO2 04/07/17 12:02 94 T-piece 5.00 35 04/07/17 12:02 94 T-piece 5.00 35 04/07/17 12:00 97.7 122 27 130/79 (96) 99 04/07/17 08:00 100.5 134 44 154/89 (110) 91 04/07/17 04:00 101.0 122 28 139/76 (97) 94 04/07/17 00:00 100.4 113 24 143/72 (95) 98 04/06/17 20:40 T-Piece 5.00 04/07/17 04/07/17 04/08/17 15:00 23:00 07:00 Intake Total 0 ml 3178 ml Output Total 1000 ml Balance 0 ml 2178 ml Intake Oral 0 ml 0 ml IV Total 2548 ml Tube Feeding 630 ml Output Urine Total 1000 ml # Bowel Movements 0 . Laboratory Tests Test 04/06/17 13:39 04/07/17 06:55 White Blood Count 4.2 TH/MM3 4.2 TH/MM3 Red Blood Count 3.26 MIL/MM3 3.23 MIL/MM3 Hemoglobin 8.2 GM/DL 8.5 GM/DL Hematocrit 24.5 % 24.4 % Mean Corpuscular Volume 75.3 FL 75.4 FL Mean Corpuscular Hemoglobin 25.3 PG 26.2 PG Mean Corpuscular Hemoglobin Concent 33.6 % 34.8 % Red Cell Distribution Width 23.2 % 23.0 % Platelet Count 75 TH/MM3 77 TH/MM3 Mean Platelet Volume 8.2 FL 8.4 FL Laboratory Tests Test 04/06/17 13:39 04/07/17 06:55 Blood Urea Nitrogen 29 MG/DL 27 MG/DL Creatinine 1.20 MG/DL 1.18 MG/DL Random Glucose 178 MG/DL 200 MG/DL Calcium Level 9.0 MG/DL 8.7 MG/DL Sodium Level 142 MEQ/L 141 MEQ/L Potassium Level 3.8 MEQ/L 3.8 MEQ/L Chloride Level 108 MEQ/L 107 MEQ/L Carbon Dioxide Level 24.5 MEQ/L 24.7 MEQ/L Anion Gap 10 MEQ/L 9 MEQ/L Estimat Glomerular Filtration Rate 62 ML/MIN 63 ML/MIN Microbiology Date/Time Source Procedure Growth Status 04/06/17 00:44 Blood Peripheral Aerobic Blood Culture - Preliminary NO GROWTH IN 1 DAY Resulted 04/06/17 00:44 Blood Peripheral Anaerobic Blood Culture - Preliminary NO GROWTH IN 1 DAY Resulted 04/06/17 00:39 Blood Peripheral Aerobic Blood Culture - Preliminary NO GROWTH IN 1 DAY Resulted 04/06/17 00:39 Blood Peripheral Anaerobic Blood Culture - Preliminary NO GROWTH IN 1 DAY Resulted Imaging Last Impressions Chest X-Ray 04/07/17 0000 Signed Impressions: Service Date/Time: Friday, April 07, 2017 17:37 - CONCLUSION: 1. Persistent hypoinflation with mild interstitial prominence. 2. Bibasilar atelectatic changes. No confluent infiltrate or effusion. Bobby Gray MD Abdomen MRI 04/07/17 0000 Signed Impressions: Service Date/Time: Friday, April 07, 2017 15:31 - CONCLUSION: 1. Hepatomegaly with innumerable lesions scattered throughout both lobes measuring up to 1.5 cm. The appearance is highly suspicious for metastatic disease. Infectious process is also included in the differential diagnosis but felt less likely. 2. Nonacute findings include splenomegaly and a fusiform infrarenal aortic aneurysm measuring up to 3.2 cm. Glen Gordon MD Liver Ultrasound 04/02/17 0000 Signed Impressions: Service Date/Time: Sunday, April 02, 2017 18:36 - CONCLUSION: 1. Small hypoechoic lesion in the right hepatic lobe that is not convincing for a cyst or other benign structure. A small metastatic lesion would be in the differential. I don't clearly see it on the prior CTs. Abdomen MRI with and without contrast may be helpful. 2. Hepatomegaly. 3. Sludge and small stones in the gallbladder. No evidence of cholecystitis or biliary obstruction. Glen Moore MD Brain MRI 03/14/17 Signed Impressions: Service Date/Time: Tuesday, March 14, 2017 12:41 - CONCLUSION: The signal abnormality and enhancement within the bilateral occipital lobes and colin have decreased since the prior examinations. No new abnormality is identified. There is no new enhancing area or signs of a recent ischemia. Glen Gordon MD Chest CT 03/10/17 Signed Impressions: Service Date/Time: Friday, March 10, 2017 21:00 - CONCLUSION: 1. Periaortic soft tissue along the proximal descending thoracic aorta not previously seen. This represents either lymphomatous involvement or adjacent consolidated airspace disease. 2. Mild bilateral airspace disease 3. No evidence of significant lymphadenopathy involving the mediastinum, hilar regions, axillas or supraclavicular lore chain. 4. Tracheostomy tube in place. Ernesto Kulkarni MD Abdomen/Pelvis CT 02/27/17 Signed Impressions: Service Date/Time: February 02:24 - CONCLUSION: 1. Abdominal aortic aneurysm. 2. Bladder mass is noted on the right posteriorly with apparent extravesical extension and clot formation. 3. Left renal cyst. 4. Left lower lobe atelectasis. 5. Large sacral decubitus ulcer with bony destruction and sclerosis of the sacrum mid to left lateral portion in the region of S3 and inferiorly which would suggest chronic osteomyelitis in the appropriate clinical setting. Rajan Granados MD Soft Tissue Ultrasound 02/26/17 Signed Impressions: Service Date/Time: Sunday, February 26, 2017 12:52 - CONCLUSION: 1. Just inferior to the G-tube in the left abdomen, there is a superficial 3.8 x 2.9 0.9 cm complex fluid collection in the subcutaneous tissues. 2. Findings are nonspecific. This could represent a small seroma or abscess. Would consider CT scan of the abdomen without contrast for further evaluation to determine if there is intraperitoneal extension. Bobby Gray MD Gastrostomy Tube Placement 02/25/17 0000 Signed Impressions: Service Date/Time: Saturday, February 25, 2017 14:19 - CONCLUSION: Uncomplicated exchange of gastroenteric feeding tube for gastrostomy tube as above. Positioning confirmed. The tube can be used immediately. Glen Zamora MD Tube Change 02/14/17 0000 Signed Impressions: Service Date/Time: Tuesday, February 14, 2017 00:00 - CONCLUSION: Uncomplicated gastrojejunostomy tube exchange as above. Scott Griffin MD Head CT 01/09/17 0000 Signed Impressions: Service Date/Time: December 17:43 - CONCLUSION: 1. No acute hemorrhage or mass effect. 2. 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 3. Atrophy. Gerald Mukherjee MD CT Angiography 01/09/17 0000 Signed Impressions: Service Date/Time: December 17:49 - CONCLUSION: 1. No evidence of pulmonary emboli. 2. Patchy consolidation in both posterior lower lobes right greater than left. This could represent pneumonia. 3. 2 small noncalcified pulmonary nodules which are nonspecific finding. Short-term CT followup is recommended beginning in 6 months with a noncontrast outpatient CT. Gerald Mukherjee MD Tube Check 12/04/16 0000 Signed Impressions: Service Date/Time: Sunday, December 04, 2016 17:58 - CONCLUSION: Uncomplicated tube injection as above. the tube is in good position and functions normally. Moises Ramírez MD Abdomen X-Ray 08/31/16 0000 Signed Impressions: Service Date/Time: Wednesday, August 31, 2016 16:36 - CONCLUSION: 1. No acute findings. Mild constipation. Durga Dotson MD Head Magnetic Resonance Angiography 03/05/16 0000 Signed Impressions: Service Date/Time: Saturday, March 05, 2016 09:26 - CONCLUSION: Persistent high-grade subtotal occlusive stenotic lesions in the distal right vertebral artery and proximal basilar artery with significant improvement in flow and recanalization following initial presentation of thrombosis. Stable interstitial circulation without significant stenosis. Ernesto Kulkarni MD Neck Magnetic Resonance Angiography 12/22/15 1445 Signed Impressions: Service Date/Time: Tuesday, December 22, 2015 09:22 - CONCLUSION: Variant origin of the left vertebral artery from the aortic arch. No evidence of carotid stenosis. Glen Zamora MD Head/Brain Mag Res Venography 12/22/15 0000 Signed Impressions: Service Date/Time: Tuesday, December 22, 2015 09:22 - CONCLUSION: Normal MRV. Jonel Jones Jr., MD Physical Exam GENERAL: eyes opened , NAD SKIN: Warm to touch and dry. No generalized rash HEENT: [place] conjunctiva. . No scleral icterus. No injection or drainage. Mucous membranes pink and moist. NECK: Tracheostomy site looks okay. No secretions in the tubings noted CARDIOVASCULAR: Regular rate and rhythm. No murmur or rub. RESPIRATORY: clear to auscultation ABDOMEN: Soft, obese, grimacing to palpation, + distended. PEG site with persistent area of macerated scin, no purulence , mucoid drainage is present BS (+) normoactive EXTREMITIES: No clubbing, cyanosis. MIld pedal edema. NEUROLOGICAL: resting , not following. Eyes opened, tracks MS is at b/l PSYCH: Unable to assess ; lopez in place, urine looks clear , light yellow Assessment & Plan Remarks IMPRESSION Lock in sd sp stroke Hx NHL Minimal perihilar infiltrate is present persistent PSAE in sputum stage IV decub with no e/o infx Superficial appaering PEG anne mraie infection, sp treatment - not a[pearing as infx, drainage more likely slighlty laking tube feeds Worsening renal fnx : no urine eos Fever ? metastitic liver disease UTI, PSAE Diarrhea, abx assciated, C.diff negative US findings of the liver lesion noted: rec'd MRI RECOMMENDATION cont zosyn for now P liver lesions clx cont fluconazole for now P liver lesions clx consult IR for CT bx of liver lesions fu WBC, temps dw Dr Wilkes in am dw mother @ bs dw Violetta Del Toro MD Apr 07, 2017 20:35
--- NOTE | 2017-04-07 21:22 | PD.CONS ---
HPI Service Critical Care Medicine Consult Requested By Primary Care Physician TRU Youngblood History of Present Illness 61-year-old unfortunate gentleman with history of non-Hodgkin's lymphoma and with multiple CVAs, including brainstem, chronic respiratory failure with tracheostomy in place for an airway protection for many months, requiring supplemental oxygen. Today, he had an increase in his secretions, and also became tachypneic more than usual. His WBC is normal. He has spiked some low- grade fevers per report. However he has not had a clinical change recently. His cxr shows persistence of left-lower lobe consolidation/atalectasis, though not markedly worse. He does have thick, white secretions, although this is not significantly worse than prior, and is near baseline for him. During my examination his respiratory rate was in 20s and he appeared to be comfortable on 35% of FiO2. Review of Systems ROS Unobtainable due to mental status Past Family Social History Allergies: Coded Allergies: *MDRO Multi-Drug Resistant Organism (Verified Adverse Reaction, Unknown, ) MRSA (sputum) - 03/08/16, 04/03/2016 MDR-Pseudomonas Aeruginosa (urine)-08/25/16 Past Medical History Paroxysmal A fib HTN DM II Non Hodgkin Lymphoma Multiple CVAs including brainstem Past Surgical History Brain biopsy 12/17/15 Left arm surgery Trach and PEG 01/02/2016 Reported Medications Reported Meds & Active Scripts Active Paxil Liq (Paroxetine HCl) 10 Mg/5 Ml Catherine 20 Mg PEG DAILY@1900 30 Days Ashish Nutrivigor (Nutritional Supplements) 1 Pow Pow 1 Pack G-TUBE BID 30 Days Keppra Liq (Levetiracetam) 500 Mg/5 Ml Soln 500 Mg TUBE Q12HR 30 Days Xopenex Neb (Levalbuterol HCl) 0.63 Mg/3 Ml Neb 0.63 Mg NEB Q4HR NEB PRN 30 Days Prevacid Solutab ODT (Lansoprazole) 30 Mg Tab 30 Mg NG BID 30 Days Levsin (Hyoscyamine Sulfate) 0.125 Mg Tab 0.25 Mg G-TUBE Q4H PRN 10 Days Ferrous Sulfate Liq (Ferrous Sulfate) 300 Mg/5 Ml Soln 300 Mg PO DAILY 30 Days Cardizem (Diltiazem HCl) 30 Mg Tab 30 Mg PEG QID 30 Days Bacitracin Topical 500 Unit/Gm Oint 1 Applic TOP BID 10 Days Aspirin 325 Mg Tab 325 Mg TUBE DAILY 30 Days Acetaminophen 650 Mg/20.3 Ml Solution 650 Mg TUBE Q6H PRN 30 Days Reported Vasotec (Enalapril Maleate) 20 Mg Tab 20 Mg PO DAILY Promethazine (Promethazine HCl) 12.5 Mg Tab 12.5 Mg PO Q8HR PRN Lipitor (Atorvastatin Calcium) 40 Mg Tab 40 Mg PO HS Keppra (Levetiracetam) 750 Mg Tab 750 Mg PO BID Omeprazole 20 Mg Tab 20 Mg PO DAILY Glucophage (Metformin HCl) 500 Mg Tab 500 Mg PO DAILY With a meal Dexamethasone 2 Mg Tab 2 Mg PO DIRECTED Decrease dose as directed until finish all the meds 2mg TID for 4 days 2mg BID for 4 days 2mg daily for 4 days 2mg every other days for 8 days Lorazepam 0.5 Mg Tab 0.5 Mg PO Q8H PRN Nicotine Patch (Nicotine) 21 Mg/24 Hr Patch 21 Mg T-DERMAL DAILY Betapace (Sotalol HCl) 80 Mg Tab 0.5 Tab PO HS Active Ordered Medications Current Medications Medications (Trade) Dose Ordered Sig/Junior Route PRN Reason Start Time Stop Time Status Last Admin Dose Admin IV Flush (NS Flush) 2 ml UNSCH PRN IVF FLUSH AFTER USING IV ACCESS 12/21/15 06:00 03/27/17 07:40 Levetriacetam (Keppra Liq) 500 mg Q12HR TUBE 12/27/15 21:00 04/07/17 22:07 Acetaminophen (Tylenol 650 Mg/ 20 ml Liq) 650 mg Q6H PRN TUBE TEMP >100.4 12/30/15 15:15 04/07/17 22:06 Nystatin (Mycostatin Powder) 1 applic Q12HR TOPICAL 01/08/16 21:00 04/07/17 22:32 Miscellaneous (Pill Splitter) 1 ea UNSCH PRN OTHER SEE LABEL COMMENTS 01/14/16 08:30 Acetic Acid (Acetic Acid 0.25% Irr Btl) 10 ml Q8HR IRRIGATION 02/05/16 16:00 04/07/17 22:32 Paroxetine HCl (Paxil Liq) 20 mg DAILY@1900 PEG 03/12/16 19:00 Future hold 9/18/17 17:40 Ondansetron HCl (Zofran Inj) 4 mg Q6HR PRN IV PUSH nausea/vomiting 04/14/16 19:45 03/16/17 16:00 Levalbuterol HCl (Xopenex Neb) 0.63 mg Q4HR NEB PRN NEB SHORTNESS OF BREATH 05/05/16 12:00 03/30/17 21:58 Aspirin (Aspirin) 325 mg DAILY TUBE 05/27/16 11:40 Future hold 04/07/17 08:08 Bacitracin (Baciguent Oint) 1 applic BID TOP 07/20/16 10:00 04/07/17 22:15 Sodium Chloride ([place]) 1 spray BID NASAL 08/01/16 21:00 04/07/17 21:00 Artificial Tears (Tears Naturale Opth Soln) 1 drop BID EACH EYE 09/05/16 21:00 04/07/17 22:15 Morphine Sulfate (Morphine Inj) 1 mg Q24H PRN IV PUSH dressing change 30 min before 09/17/16 14:30 10/22/16 02:00 Bisacodyl (Dulcolax Supp) 10 mg DAILY PRN RECTAL SEVERE CONSTIPATION IF NOT PO 09/26/16 15:30 12/08/16 09:17 Acetaminophen/ Codeine Phosphate (Tylenol - Codeine 120-12 Liq) 5 ml Q4H PRN G-TUBE pain 2-12/27/16 15:30 03/31/17 05:50 Loperamide HCl (Imodium Liq) 2 mg Q6H PRN PEG DIARRHEA 12/27/16 15:30 04/06/17 20:38 Magnesium Hydroxide (Milk Of Magnesia Liq) 30 ml DAILY PRN PEG mild-moderate constipation 12/27/16 15:30 02/11/17 08:46 Magnesium Hydroxide (Milk Of Magnesia Liq) 30 ml DAILY PEG 12/28/16 09:00 Future Hold 01/19/17 08:44 Sennosides (Senna Liq) 8.8 mg DAILY@1600 PEG 12/27/16 16:00 Future Hold 03/24/17 17:13 Lactulose (Lactulose Liq) 30 ml DAILY PRN PEG severe constipation 12/27/16 15:30 Lansoprazole (Prevacid Odt) 30 mg BID NG 01/26/17 21:00 04/07/17 22:06 Ferrous Sulfate (Ferrous Sulfate Liq) 300 mg DAILY PO 02/14/17 09:00 04/07/17 08:07 Ascorbic Acid (Vitamin C) 1,000 mg DAILY PO 02/14/17 09:00 04/07/17 08:08 Bacitracin (Bacitracin Oint Packet) 0.9 gm DAILY TOPICAL 02/25/17 09:00 04/07/17 08:14 Hyoscyamine Sulfate (Levsin) 0.25 mg Q8HR G-TUBE 03/18/17 22:00 04/07/17 22:27 Pharmacy Profile Note 0 ml @ 0 mls/hr UNSCH OTHER 03/19/17 15:30 Piperacillin Sod/ Tazobactam Sod 100 ml @ 200 mls/hr Q8H IV 03/24/17 14:00 04/07/17 22:05 Insulin Aspart (NovoLOG SUPPLEMENTAL SCALE) 1 ACHS SLIDING SCALE SQ 03/26/17 21:00 04/07/17 22:27 Dextrose (D50w (Vial) Inj) 50 ml UNSCH PRN IV PUSH HYPOGLYCEMIA - SEE COMMENTS 03/26/17 18:15 Glucagon (Glucagon Inj) 1 mg UNSCH PRN OTHER HYPOGLYCEMIA-SEE COMMENTS 03/26/17 18:15 Insulin Detemir (Levemir Inj) 10 units Q12HR SQ 03/28/17 21:00 04/07/17 22:27 Diltiazem HCl (Cardizem) 60 mg QID PEG 03/28/17 18:00 04/07/17 22:06 Sodium Chloride 1,000 ml @ 65 mls/hr [id number] IV 04/01/17 12:30 04/07/17 10:41 Diphenhydramine HCl (Benadryl) 25 mg Q4H PRN PO SEE LABEL COMMENTS 04/02/17 10:45 04/03/17 05:26 Fluconazole (Diflucan) 200 mg DAILY PO 04/06/17 09:00 04/07/17 08:08 Warfarin Sodium (Coumadin) 3 mg DAILY@1600 PO 04/07/17 16:00 04/07/17 17:40 Family History Unobtainable due to mental status Social History Unobtainable Physical Exam Vital Signs Vital Signs Date Time Temp Pulse Resp B/P (MAP) Pulse Ox O2 Delivery O2 Flow Rate FiO2 04/07/17 12:02 94 T-piece 5.00 35 04/07/17 12:02 94 T-piece 5.00 35 04/07/17 12:00 97.7 122 27 130/79 (96) 99 04/07/17 08:00 100.5 134 44 154/89 (110) 91 04/07/17 04:00 101.0 122 28 139/76 (97) 94 04/07/17 00:00 100.4 113 24 143/72 (95) 98 Physical Exam GENERAL: 61 year old male, currently resting in bed on TP via trach in no acute distress SKIN: Warm and dry. No rash. Decubitus sacral ulcer HEAD: Normocephalic. EYES: No scleral icterus. No injection or drainage. NECK: Supple, trachea midline. No JVD or lymphadenopathy. Tracheostomy CARDIOVASCULAR: Tachycardic, RR. S1, S2 no S4. No murmurs, gallops, or rubs. RESPIRATORY: Breath sounds equal bilaterally and symmetrical no accessory muscle use. GASTROINTESTINAL: Abdomen soft, non-tender, nondistended. GJ tube is clean dry and intact. MUSCULOSKELETAL: No significant peripheral edema. Neuro: On no sedation. Eyes are open, do not track. Withdraws lower extremities to pain only Laboratory Laboratory Tests Test 04/07/17 06:55 04/07/17 17:51 White Blood Count 4.2 Red Blood Count 3.23 Hemoglobin 8.5 Hematocrit 24.4 Mean Corpuscular Volume 75.4 Mean Corpuscular Hemoglobin 26.2 Mean Corpuscular Hemoglobin Concent 34.8 Red Cell Distribution Width 23.0 Platelet Count 77 Mean Platelet Volume 8.4 Prothrombin Time 18.1 Prothromb Time International Ratio 1.6 Blood Urea Nitrogen 27 Creatinine 1.18 Random Glucose 200 Calcium Level 8.7 Sodium Level 141 Potassium Level 3.8 Chloride Level 107 Carbon Dioxide Level 24.7 Anion Gap 9 Estimat Glomerular Filtration Rate 63 Blood Gas Puncture Site RT RADIAL Blood Gas Patient Temperature 98.6 Blood Gas HCO3 25 Blood Gas Base Excess 1.4 Blood Gas Oxygen Saturation 91 Arterial Blood pH 7.48 Arterial Blood Partial Pressure CO2 33 Arterial Blood Partial Pressure O2 71 Arterial Blood Oxygen Content 13.0 Arterial Blood Carboxyhemoglobin 2.0 Arterial Blood Methemoglobin 1.3 Blood Gas Hemoglobin 10.0 Oxygen Delivery Device TRACH COLLAR Blood Gas Inspired Oxygen 35 Date/Time Source Procedure Growth Status 04/06/17 00:44 Blood Peripheral Aerobic Blood Culture - Preliminary NO GROWTH IN 1 DAY Resulted 04/06/17 00:44 Blood Peripheral Anaerobic Blood Culture - Preliminary NO GROWTH IN 1 DAY Resulted 03/24/17 00:00 Stool Stool Stool Occult Blood (AISHA) - Final HEMOCCULT NEGATIVE Complete 04/04/17 02:40 Sputum Endotracheal Gram Stain - Final Complete 04/04/17 02:40 Sputum Culture - Final Pseudomonas Aeruginosa Complete 04/03/17 15:25 Urine Catheterized Urine Urine Culture - Final Complete 04/04/17 18:40 Wound Skin Gram Stain - Final Complete 04/04/17 18:40 Wound Culture - Final Sharri Tropical[facility] D Enterococcus Complete Result Diagram: 04/07/1765404/07/17 06 Assessment and Plan Assessment and Plan Neuro/Psych: Initial hospitalization 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 Duo nebs every 6 hours Pulm toilet, trach care Pulm is following- Dr. Taylor CV: History of paroxysmal atrial fibrillation currently in sinus tachycardia Hypertension Dyslipidemia Monitor HR and BP keep MAP>65mmHg. O Continue ASA 325mg daily, Cardizem 30mg QID Renal//FEN: Monitor renal function, Accurate I/O's electrolytes replacement if indicated GI: Mild protein calorie malnutrition Gastroesophageal reflux disease On Protonix Tube feeds J-tube followed by GI ID: Klebsiella/Pseudomonas/staph aureus HCAP Continue abx per ID Heme: Microcytic anemia Stage III a non-Hodgkin's lymphoma Management per hematology oncology Endo: History of diabetes mellitus On SSI (low scale) for glycemic control Stage IV decubitus ulcers Dressing changes daily Management per wound care GI prophylaxis with Protonix 40mg Q12 DVT prophylaxis with SCD and Heparin SQ I do not think the patient meets criteria for ICU admission. My recommendation is to continue the patient's current level of care. Critical Care Medicine will sign-off. Please re-consult as needed. Discussed Condition With Respiratory therapist, bedside RN, charge weigher on 3N Sgae Kenny MD Apr 07, 2017 9:22 pm
[2017-04-07] MEDS: ACETAMINOPHEN 650 MG/20.3 ML UDC TUBE PRN (22:06)
[2017-04-08] VITALS (12 sets, daily range): BP systolic 122–143; BP diastolic 74–85; PULSE 94–141; RESP 24–44; TEMP 99–102.9; O2SAT 92–98
[2017-04-08] MEDS: RESP: LEVALBUTEROL HYDROCHLORIDE 0.63 MG/3 ML NEB (PRN) NEB (01:03)
[2017-04-08] MEDS: ACETIC ACID 0.25% SOLN 1000 ML IRR BTL IRRIGATION SCH (04:58)
[2017-04-08] MEDS: PIPERACIL-TAZO 4.5 GM PREMIX 100 ML IV SCH ×2 (04:59→12:34)
[2017-04-08] MEDS: HYOSCYAMINE 0.125 MG TAB G-TUBE SCH ×2 (04:59→12:34)
[2017-04-08] MEDS: ACETAMINOPHEN 650 MG/20.3 ML UDC TUBE PRN ×2 (04:59→17:38)
[2017-04-08] MEDS: SODIUM CHLOR 0.9% 1000 ML INJ 1,000 ML IV SCH (04:59)
[2017-04-08] MEDS: FERROUS SULFATE 300 MG /5ML UDC PO SCH (08:04)
[2017-04-08] MEDS: FLUCONAZOLE 200 MG TAB PO SCH (08:04)
[2017-04-08] MEDS: ASCORBIC ACID 500 MG TAB PO SCH (08:05)
[2017-04-08 08:06] LABS: INTERNATIONAL NORMALIZED RATIO 1.6 RATIO; PROTHROMBIN TIME - PATIENT 18.2 SEC (9.8-11.6)
[2017-04-08 08:08] LABS: HEMATOCRIT 23.5 % (39.0-51.0); MEAN CELL VOLUME 76.6 FL (80.0-100.0); MEAN CORPUSCULAR HGB CONC 33.9 % (32.0-36.0); PLATELET COUNT 81 TH/MM3 (150-450); RED BLOOD COUNT 3.06 MIL/MM3 (4.50-5.90); RED CELL DISTRIBUTION WIDTH 23.3 % (11.6-17.2); WHITE BLOOD COUNT 4.7 TH/MM3 (4.0-11.0)
[2017-04-08 08:14] LABS: REVIEW FLAG FINAL
[2017-04-08 08:25] LABS: BICARBONATE 25.8 MEQ/L (21.0-32.0)
[2017-04-08 08:30] LABS: POTASSIUM 4.8 MEQ/L (3.5-5.1)
[2017-04-08] MEDS: NYSTATIN 100,000 U/GM PWD 15 GM BTL TOPICAL SCH ×2 (09:00→21:14)
[2017-04-08] MEDS: BACITRACIN OINT 0.9 GM PKT TOPICAL SCH (09:00)
[2017-04-08] MEDS: SODIUM CHLORIDE 0.65% NASAL SPRAY 45 ML BTL NASAL SCH ×2 (09:00→21:13)
[2017-04-08] MEDS: BACITRACIN TOP OINT 15 GM TUBE TOP SCH ×2 (09:00→21:14)
[2017-04-08] MEDS: LANSOPRAZOLE SOLUTAB 30 MG TAB NG SCH (09:32)
[2017-04-08] MEDS: DILTIAZEM HCL 30 MG TAB PEG SCH ×3 (09:32→17:19)
[2017-04-08] MEDS: ASPIRIN 325 MG TAB TUBE SCH (09:32)
[2017-04-08] MEDS: ARTIFICIAL TEARS OPTH SOLN 15 ML BTL EACH EYE SCH ×2 (09:33→21:13)
[2017-04-08] MEDS: levETIRAcetam 500 MG/5 ML UDC TUBE SCH (09:43)
[2017-04-08] MEDS: INSULIN ASPART SUPPLEMENTAL SCALE SQ SCH ×4 (09:53→21:00)
[2017-04-08] MEDS: INSULIN DETEMIR 100 UNITS/ML VIAL SQ SCH ×2 (09:54→21:00)
--- NOTE | 2017-04-08 11:01 | HHI.PR ---
Subjective Remarks Follow-up for CVA and infection Yesterday patient had increase respiratory rate and tachycardia and respiratory therapist recommended ventilation. I consulted intensive care physician Dr. Kenny in regards to this and transfer to the ICU. Patient was evaluated by Dr. Kenny did not think that patient needs to be transferred to the ICU and did not recommend any ventilation. Today patient continues to have shortness of breathing. Dealt with patient's nurse who stated that he does not have a lot of secretion and that she is suctioning the same amount. Patient's mother stated that she only suctioned him once. Patient continues to have fevers last one 101. Objective Vitals Vital Signs Date Time Temp Pulse Resp B/P (MAP) Pulse Ox O2 Delivery O2 Flow Rate FiO2 04/08/17 09:01 96 T-piece 6.00 50 04/08/17 09:00 96 T-piece 6.00 50 04/08/17 08:00 100.6 127 40 125/74 (91) 97 04/08/17 05:02 95 T-piece 5.00 50 04/08/17 04:00 101.3 134 44 143/85 (104) 96 04/08/17 00:00 99.0 118 26 136/77 (96) 98 04/07/17 22:10 T-Piece 5.00 04/07/17 20:00 101.2 131 24 133/78 (96) 97 04/07/17 12:02 94 T-piece 5.00 35 04/07/17 12:02 94 T-piece 5.00 35 04/07/17 12:00 97.7 122 27 130/79 (96) 99 I/O 04/07/17 04/07/17 04/07/17 04/08/17 04/08/17 04/08/17 07:00 15:00 23:00 07:00 15:00 23:00 Intake Total 817 ml 0 ml 3178 ml 5984 ml 405 ml Output Total 1050 ml 1050.0 ml Balance -233 ml 0 ml 2128.0 ml 5984 ml 405 ml Intake Oral 0 ml 0 ml 0 ml 0 ml IV Total 100 ml 2548 ml 5453 ml Tube Feeding 657 ml 630 ml 531 ml Packed Cells 400 ml Blood Product IV Normal Saline Flush 5 ml Tube Irrigant 60 ml Output Urine Total 1050 ml 1000 ml Tube Feeding Residual Discard 50.0 ml # Bowel Movements 1 0 Result Diagram: 04/08/17 0538 04/08/17 0538 Imaging Last Impressions Chest X-Ray 04/07/17 0000 Signed Impressions: Service Date/Time: Friday, April 07, 2017 17:37 - CONCLUSION: 1. Persistent hypoinflation with mild interstitial prominence. 2. Bibasilar atelectatic changes. No confluent infiltrate or effusion. Bobby Gray MD Abdomen MRI 04/07/17 0000 Signed Impressions: Service Date/Time: Friday, April 07, 2017 15:31 - CONCLUSION: 1. Hepatomegaly with innumerable lesions scattered throughout both lobes measuring up to 1.5 cm. The appearance is highly suspicious for metastatic disease. Infectious process is also included in the differential diagnosis but felt less likely. 2. Nonacute findings include splenomegaly and a fusiform infrarenal aortic aneurysm measuring up to 3.2 cm. Glen Gordon MD Liver Ultrasound 04/02/17 0000 Signed Impressions: Service Date/Time: Sunday, April 02, 2017 18:36 - CONCLUSION: 1. Small hypoechoic lesion in the right hepatic lobe that is not convincing for a cyst or other benign structure. A small metastatic lesion would be in the differential. I don't clearly see it on the prior CTs. Abdomen MRI with and without contrast may be helpful. 2. Hepatomegaly. 3. Sludge and small stones in the gallbladder. No evidence of cholecystitis or biliary obstruction. Glen Moore MD Brain MRI 03/14/17 0000 Signed Impressions: Service Date/Time: Tuesday, March 14, 2017 12:41 - CONCLUSION: The signal abnormality and enhancement within the bilateral occipital lobes and colin have decreased since the prior examinations. No new abnormality is identified. There is no new enhancing area or signs of a recent ischemia. Glen Gordon MD Chest CT 03/10/17 0000 Signed Impressions: Service Date/Time: Friday, March 10, 2017 21:00 - CONCLUSION: 1. Periaortic soft tissue along the proximal descending thoracic aorta not previously seen. This represents either lymphomatous involvement or adjacent consolidated airspace disease. 2. Mild bilateral airspace disease 3. No evidence of significant lymphadenopathy involving the mediastinum, hilar regions, axillas or supraclavicular lore chain. 4. Tracheostomy tube in place. Ernesto Kulkarni MD Abdomen/Pelvis CT 02/27/17 0000 Signed Impressions: Service Date/Time: February 02:24 - CONCLUSION: 1. Abdominal aortic aneurysm. 2. Bladder mass is noted on the right posteriorly with apparent extravesical extension and clot formation. 3. Left renal cyst. 4. Left lower lobe atelectasis. 5. Large sacral decubitus ulcer with bony destruction and sclerosis of the sacrum mid to left lateral portion in the region of S3 and inferiorly which would suggest chronic osteomyelitis in the appropriate clinical setting. Rajan Granados MD Soft Tissue Ultrasound 02/26/17 0000 Signed Impressions: Service Date/Time: Sunday, February 26, 2017 12:52 - CONCLUSION: 1. Just inferior to the G-tube in the left abdomen, there is a superficial 3.8 x 2.9 0.9 cm complex fluid collection in the subcutaneous tissues. 2. Findings are nonspecific. This could represent a small seroma or abscess. Would consider CT scan of the abdomen without contrast for further evaluation to determine if there is intraperitoneal extension. Bobby Gray MD Gastrostomy Tube Placement 02/25/17 0000 Signed Impressions: Service Date/Time: Saturday, February 25, 2017 14:19 - CONCLUSION: Uncomplicated exchange of gastroenteric feeding tube for gastrostomy tube as above. Positioning confirmed. The tube can be used immediately. Glen Zamora MD Tube Change 02/14/17 0000 Signed Impressions: Service Date/Time: Tuesday, February 14, 2017 00:00 - CONCLUSION: Uncomplicated gastrojejunostomy tube exchange as above. Scott Griffin MD Head CT 01/09/17 0000 Signed Impressions: Service Date/Time: December 17:43 - CONCLUSION: 1. No acute hemorrhage or mass effect. 2. 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 3. Atrophy. Gerald Mukherjee MD CT Angiography 01/09/17 0000 Signed Impressions: Service Date/Time: December 17:49 - CONCLUSION: 1. No evidence of pulmonary emboli. 2. Patchy consolidation in both posterior lower lobes right greater than left. This could represent pneumonia. 3. 2 small noncalcified pulmonary nodules which are nonspecific finding. Short-term CT followup is recommended beginning in 6 months with a noncontrast outpatient CT. Gerald Mukherjee MD Tube Check 12/04/16 0000 Signed Impressions: Service Date/Time: Sunday, December 04, 2016 17:58 - CONCLUSION: Uncomplicated tube injection as above. the tube is in good position and functions normally. Moises Ramírez MD Abdomen X-Ray 08/31/16 0000 Signed Impressions: Service Date/Time: Wednesday, August 31, 2016 16:36 - CONCLUSION: 1. No acute findings. Mild constipation. Durga Dotson MD Head Magnetic Resonance Angiography 03/05/16 0000 Signed Impressions: Service Date/Time: Saturday, March 05, 2016 09:26 - CONCLUSION: Persistent high-grade subtotal occlusive stenotic lesions in the distal right vertebral artery and proximal basilar artery with significant improvement in flow and recanalization following initial presentation of thrombosis. Stable interstitial circulation without significant stenosis. Ernesto Kulkarni MD Neck Magnetic Resonance Angiography 12/22/15 1445 Signed Impressions: Service Date/Time: Tuesday, December 22, 2015 09:22 - CONCLUSION: Variant origin of the left vertebral artery from the aortic arch. No evidence of carotid stenosis. Glen Zamora MD Head/Brain Mag Res Venography 12/22/15 0000 Signed Impressions: Service Date/Time: Tuesday, December 22, 2015 09:22 - CONCLUSION: Normal MRV. Jonel Jones Jr., MD Objective Remarks Gen increase RR since yesterday CVtachy RR. no r/m/g Resp trach in place. Clear to auscultation bilaterally. abd soft NDNT PEG site shows mild skin breakdown at the insertion site with small amount of discharged at the site. 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 No purulent discharge noted. Procedures 07/22/2016 Wide excision of sacral skin wound, biopsy of the cavity lining and debridement. PEG removal and Gj tube placement 07/29/16 VAC changes- M-W-F 10/23/16, 11/18, 12/31- GJ tube replacement 01/02/16 PEG placement 01/02/16 tracheostomy 02/25/17 PEG replacement 03/03/17 Cystoscopy and palliative transurethral resection of bladder tumor greater than 5cm originating from the right bladder wall Medications and IVs Current Medications IV Flush (NS Flush) 2 ml UNSCH PRN IVF FLUSH AFTER USING IV ACCESS Last administered on 03/27/17t 07:40; Start 12/21/15 at 06:00 Ondansetron HCl (Zofran Inj) 4 mg STK-MED ONCE .ROUTE ; Start 12/21/15 at 06:22; Stop 12/21/15 at 06:23; Status DC Ondansetron HCl (Zofran Inj) 4 mg ONCE ONCE IV PUSH Last administered on at 06:43; Start 12/21/15 at 06:30; Stop 12/21/15 at 06:31; Status DC Diltiazem HCl (Cardizem Inj) 20 mg ONCE ONCE IV Last administered on 12/21/15at 06:42; Start 12/21/15 at 06:30; Stop 12/21/15 at 06:31; Status DC Diltiazem HCl 125 mg/Sodium Chloride 125 ml @ 0 mls/hr TITRATE IV Last administered on 12/21/15at 06:47; Start 12/21/15 at 06:30; Stop 12/21/15 at 13:00; Status DC Acetaminophen (Tylenol) 650 mg ONCE ONCE PO ; Start 12/21/15 at 06:45; Stop 12/20 at 06:46; Status DC Lorazepam (Ativan Inj) 1 mg ONCE ONCE IV PUSH Last administered on 12/21/15at 07 :22; Start 12/21/15 at 07:15; Stop 12/21/15 at 07:16; Status DC Etomidate (Amidate Inj) 40 mg STK-MED ONCE .ROUTE Last administered on at 08:17; Start 12/21/15 at 07:37; Stop 12/21/15 at 07:38; Status DC Succinylcholine Chloride (Quelicin Inj) 200 mg STK-MED ONCE .ROUTE Last administered on 12/21/15at 08:18; Start 12/21/15 at 07:37; Stop 12/21/15 at 07:38; Status DC Propofol 100 ml @ As Directed STK-MED ONCE .ROUTE Last administered on at 08:19; Start 12/21/15 at 07:46; Stop 12/21/15 at 07:47; Status DC Propofol (Diprivan 1000 Mg/100ml Inj) search Sets for Drip. NOW PRN IV SEDATION Last administered on 12/22/15at 06:25; Start 12/21/15 at 08:30; Stop 12/28 at 15:43; Status DC Gadodiamide (Omniscan Pf Inj) 18 ml STK-MED ONCE IV Last administered on at 10:11; Start 12/21/15 at 10:11; Stop 12/21/15 at 10:12; Status DC Pantoprazole Sodium (Protonix Inj) 40 mg DAILY IV Last administered on at 07:39; Start 12/21/15 at 13:00; Stop 01/03/16 at 10:10; Status DC Albuterol/ Ipratropium (Duoneb Neb) 1 ampule Q6HR NEB INH Last administered on 12/25/15at 07:51; Start 12/21/15 at 13:00; Stop 12/25/15 at 13:00; Status DC Miscellaneous Information 1 [id number] Last administered on 12/21/15at 13:00; Start 12/21/15 at 13:00; Stop 01/12/16 at 11:47; Status DC Chlorhexidine Gluconate (Chlorhexidine 2% Cloth) 3 pack Taper DAILY@04 TOP Last administered on 01/11/16at 04:10; Start 12/22/15 at 04:00; Stop 01/12/16 at 11:47; Status DC Chlorhexidine Gluconate (Chlorhexidine 2% Cloth) 3 pack UNSCH PRN TOP HYGIENIC CARE; Start 12/21/15 at 13:00; Stop 01/12/16 at 11:47; Status DC Sodium Chloride 1,000 ml @ 75 mls/hr [id number] IV Last administered on 12/22/15at 17:00; Start 12/21/15 at 13:00; Stop 12/22/15 at 19:01; Status DC Dextrose (D50w (Vial) Inj) 25 ml UNSCH PRN IV PUSH HYPOGLYCEMIA-SEE COMMENTS; Start 12/21/15 at 13:00; Stop 04/19/16 at 17:19; Status DC Glucagon (Glucagon Inj) 1 mg UNSCH PRN OTHER HYPOGLYCEMIA-SEE COMMENTS; Start 12/21/15 at 13:00; Stop 04/19/16 at 17:19; Status DC Insulin Human Regular (NovoLIN R SUPPLEMENTAL SCALE) 1 Q6H SQ Last administered on 01/04/16at 06:31; Start 12/21/15 at 13:00; Stop 01/04/16 at 10:05 ; Status DC Levetriacetam (Keppra) 500 mg Q12HR PO Last administered on 12/27/15at 09:00; Start 12/21/15 at 13:45; Stop 12/27/15 at 09:44; Status DC Heparin Sodium (Porcine) (Heparin Inj) 5,000 units BID SQ Last administered on 12/22/15at 20:52; Start 12/21/15 at 21:00; Stop 12/23/15 at 08:32; Status DC Warfarin Sodium (Coumadin) 7.5 mg ONCE ONCE PO Last administered on 12/21/15at 21:43; Start 12/21/15 at 21:00; Stop 12/21/15 at 21:01; Status DC Warfarin Sodium (Coumadin) 5 mg DAILY@16 PO Last administered on 12/23/15at 16:00 ; Start 12/22/15 at 16:00; Stop 12/26/15 at 09:29; Status DC Patient Medication Teaching (Coumadin Booklet) 1 ONCE ONCE XX Last administered on 12/21/15at 20:15; Start 12/21/15 at 20:15; Stop 12/21/15 at 20:16; Status DC Chlorhexidine Gluconate (Peridex 0.12% Liq) 15 ml BID@08,20 MT Last administered on 01/12/16at 08:00; Start 12/22/15 at 20:00; Stop 01/12/16 at 11:47 ; Status DC Gadodiamide (Omniscan Pf Inj) 20 ml STK-MED ONCE IV Last administered on at 09:55; Start 12/22/15 at 09:55; Stop 12/22/15 at 09:56; Status DC Pharmacy Profile Note ml @ 0 mls/hr UNSCH OTHER ; Start 12/22/15 at 11:00; Stop 12/22/15 at 19:43; Status DC Sodium Chloride 1,000 ml @ 50 mls/hr Q20H IV Last administered on 12/24/15at 20: 02; Start 12/22/15 at 18:44; Stop 12/25/15 at 11:52; Status DC Pharmacy Profile Note 0 ml @ 0 mls/hr UNSCH OTHER ; Start 12/22/15 at 19:45; Stop 01/04/16 at 12:25; Status DC Acetaminophen (Tylenol) 650 mg Q6H PRN PO TEMP > 100 Last administered on at 13:24; Start 12/23/15 at 02:45; Stop 12/30/15 at 15:04; Status DC Potassium Chloride 100 ml @ 50 mls/hr Q2H PRN IV For Potassium 2.8 - 3.2 mEq/L ; Start 12/23/15 at 08:30; Stop 01/09/16 at 11:14; Status DC Potassium Chloride 100 ml @ 50 mls/hr Q2H PRN IV For Potassium 2.8 - 3.2 mEq/L ; Start 12/23/15 at 08:30; Stop 01/09/16 at 11:14; Status DC Potassium Chloride (KCl 40 Meq/30 ml Liq) 40 meq UNSCH PRN PO/TUBE For Potassium 3.3 - 3.5 mEq/L; Start 12/23/15 at 08:30; Stop 01/09/16 at 11:14; Status DC Potassium Chloride 100 ml @ 25 mls/hr UNSCH PRN IV For Potassium 3.3 - 3.5 mEq /L; Start 12/23/15 at 08:30; Stop 01/09/16 at 11:14; Status DC Potassium Chloride 100 ml @ 50 mls/hr Q2H PRN IV For Potassium 3.3 - 3.5 mEq/L ; Start 12/23/15 at 08:30; Stop 01/09/16 at 11:14; Status DC Magnesium Sulfate 4 gm/Sodium Chloride 100 ml @ 50 mls/hr UNSCH PRN IV For Magnesium 0.9 - 1.1 mg/dL; Start 12/23/15 at 08:30; Stop 01/09/16 at 11:14; Status DC Magnesium Oxide (Mag-Ox) 800 mg UNSCH PRN PO For Magnesium 1.2 - 1.6 mg/dL; Start 12/23/15 at 08:30; Stop 01/09/16 at 11:14; Status DC Magnesium Sulfate 2 gm/Sodium Chloride 100 ml @ 50 mls/hr UNSCH PRN IV For Magnesium 1.2 - 1.6 mg/dL; Start 12/23/15 at 08:30; Stop 01/09/16 at 11:14; Status DC Potassium Phosphate (K-Phos) 2,000 mg Q4H PRN PO For Phosphorus < 2.5 mg/dL; Start 12/23/15 at 08:30; Stop 01/09/16 at 11:14; Status DC Sodium Phosphate 30 mmol/Sodium Chloride 250 ml @ 42 mls/hr UNSCH PRN IV For Phosphorus < 2.5 mg/dL; Start 12/23/15 at 08:30; Stop 01/09/16 at 11:14; Status DC Potassium Chloride (KCl 40 Meq/30 ml Liq) 40 meq UNSCH PRN PO/TUBE SEE LABEL COMMENTS; Start 12/23/15 at 08:30; Stop 01/09/16 at 11:14; Status DC Potassium Phosphate (K-Phos) 2,000 mg UNSCH PRN PO/TUBE SEE LABEL COMMENTS; Start 12/23/15 at 08:30; Stop 01/09/16 at 11:14; Status DC Potassium Phosphate 30 mmol/ Sodium Chloride 260 ml @ 42 mls/hr UNSCH PRN IV SEE LABEL COMMENTS; Start 12/23/15 at 08:30; Stop 01/09/16 at 11:14; Status DC Sodium Chloride 1,000 ml @ 75 mls/hr [id number] IV ; Start 12/23/15 at 08:30; Stop 12/23/15 at 08:30; Status DC Piperacillin Sod/ Tazobactam Sod 50 ml @ 100 mls/hr Q6H IV Last administered on 12/30/15at 10:02; Start 12/23/15 at 10:00; Stop 12/30/15 at 14:50; Status DC Vancomycin HCl 1000 mg/Sodium Chloride 250 ml @ 250 mls/hr Q12H IV Last administered on 12/29/15at 09:01; Start 12/24/15 at 08:45; Stop 12/29/15 at 15:33 ; Status DC Warfarin Sodium (Coumadin) 4 mg DAILY@16 PO Last administered on 12/28/15at 16:00 ; Start 12/26/15 at 16:00; Stop 01/04/16 at 12:25; Status DC Levetriacetam (Keppra Liq) 500 mg Q12HR TUBE Last administered on 04/08/17t 09 :43; Start 12/27/15 at 21:00 Docusate Sodium (Colace Liq) 100 mg Q12HR TUBE Last administered on 01/15/16at 09:01; Start 12/27/15 at 21:00; Stop 04/16/16 at 08:50; Status DC Sennosides (Senna Liq) 8.8 mg DAILY TUBE Last administered on 01/15/16at 09:01 ; Start 12/27/15 at 17:00; Stop 01/15/16 at 20:37; Status DC Bisacodyl (Dulcolax Supp) 10 mg ONCE ONCE RECTAL ; Start 12/27/15 at 16:15; Stop 12/27/15 at 16:15; Status DC Albuterol/ Ipratropium (Duoneb Neb) 1 ampule Q4HR NEB PRN NEB RESPIRATORY DISTRESS Last administered on 12/29/15at 12:17; Start 12/27/15 at 22:00; Stop at 08:16; Status DC Bisacodyl (Dulcolax Supp) 10 mg ONCE ONCE RECTAL ; Start 12/28/15 at 12:00; Stop 12/28/15 at 12:01; Status DC Sodium Chloride (Sodium Chloride) 1 gm BID TUBE Last administered on 12/29/15at 09:02; Start 12/28/15 at 21:00; Stop 12/29/15 at 15:43; Status DC Lactulose (Lactulose Liq) 30 ml DAILY TUBE Last administered on 12/29/15at 09:02 ; Start 12/28/15 at 20:30; Stop 12/29/15 at 15:43; Status DC Levofloxacin (Levaquin) 750 mg DAILY@16 TUBE ; Start 12/29/15 at 16:00; Stop 05/05 at 16:00; Status DC Sodium Chloride (Sodium Chloride) 1 gm DAILY TUBE Last administered on at 07:29; Start 12/30/15 at 09:00; Stop 12/31/15 at 14:08; Status DC Water (Free Water) 200 ml Q6HR G-TUBE Last administered on 12/31/15at 04:19; Start 12/30/15 at 14:45; Stop 12/31/15 at 07:31; Status DC Ceftriaxone Sodium 1000 mg/ Sodium Chloride 100 ml @ 200 mls/hr Q12H IV Last administered on 01/03/16at 02:47; Start 12/30/15 at 15:00; Stop 01/03/16 at 10:09 ; Status DC Acetaminophen (Tylenol 650 Mg/ 20 ml Liq) 650 mg Q6H PRN TUBE TEMP >100.4 Last administered on 04/08/17t 04:59; Start 12/30/15 at 15:15 Lactobacillus Acidophilus (Lactinex Pkt) 1 gm BID TUBE Last administered on at 09:00; Start 12/30/15 at 21:00; Stop 02/10/16 at 14:30; Status DC Enoxaparin Sodium (Lovenox Inj) 90 mg Q12H SQ Last administered on 01/01/16at 21 :57; Start 12/31/15 at 08:00; Stop 01/03/16 at 10:33; Status DC Water (Free Water) 100 ml Q12H G-TUBE ; Start 12/31/15 at 18:00; Stop 12/31/15 at 18:00; Status DC Acetaminophen/ Hydrocodone Bitart ([place] 5-325 Mg) 1 tab Q6H PRN PO PAIN Last administered on 05/26/16at 20:46; Start 12/31/15 at 15:00; Stop 06/02/16 at 21: 44; Status DC Fentanyl Citrate (Sublimaze Inj) 25 mcg Q1H PRN IV PUSH BREAKTHROUGH PAIN; Start 12/31/15 at 15:00; Stop 03/06/16 at 10:03; Status DC Water (Free Water) 200 ml Q8H G-TUBE Last administered on 01/01/16at 17:55; Start 12/31/15 at 18:00; Stop 01/02/16 at 09:56; Status DC Sodium Chloride (Sodium Chloride) 1 gm BID TUBE Last administered on 01/03/16at 07:39; Start 12/31/15 at 21:00; Stop 01/03/16 at 09:08; Status DC Miscellaneous Information Hold Anticoagulation after midni... ONCE ONCE OTHER ; Start 01/01/16 at 10:15; Stop 01/01/16 at 10:29; Status DC Sodium Chloride 1,000 ml @ 50 mls/hr Q20H IV Last administered on 01/02/16at 12 :26; Start 01/01/16 at 18:00; Stop 01/03/16 at 10:07; Status DC Midazolam HCl (Versed Inj) 5 mg STK-MED ONCE .ROUTE ; Start 01/02/16 at 12:47; Stop 01/02/16 at 12:48; Status DC Vecuronium [place] (Norcuron 10 Mg Inj) 10 mg STK-MED ONCE .ROUTE ; Start at 12:47; Stop 01/02/16 at 12:48; Status DC Fentanyl Citrate (Sublimaze Inj) 250 mcg ONCE ONCE IV PUSH Last administered on 01/02/16at 15:00; Start 01/02/16 at 15:00; Stop 01/02/16 at 15:01; Status DC Midazolam HCl (Versed Inj) 10 mg ONCE ONCE IV PUSH Last administered on at 15:00; Start 01/02/16 at 15:00; Stop 01/02/16 at 15:01; Status DC Rocuronium [place] (Zemuron Inj) 100 mg BOLUS ONCE IV Last administered on at 15:00; Start 01/02/16 at 15:00; Stop 01/02/16 at 15:01; Status DC Ketamine HCl (Ketalar Inj) 500 mg STK-MED ONCE .ROUTE ; Start 01/02/16 at 14:30 ; Stop 01/02/16 at 14:31; Status DC Propofol (Diprivan 200 Mg/20 ml Inj) 230 mg STK-MED ONCE IV ; Start 01/02/16 at 16:51; Stop 01/02/16 at 16:52; Status DC Sodium Chloride 1,000 ml @ 0 mls/hr Q0M IV ; Start 01/03/16 at 10:15; Stop at 17:30; Status DC Ranitidine HCl (Zantac Liq) 150 mg Q12HR PO Last administered on 01/17/16at 07: 39; Start 01/04/16 at 09:00; Stop 01/17/16 at 15:23; Status DC Enoxaparin Sodium (Lovenox Inj) 90 mg Q12HR SQ Last administered on 01/11/16at 10:01; Start 01/04/16 at 09:00; Stop 01/11/16 at 12:35; Status DC Sodium Chloride 500 ml @ 0 mls/hr BOLUS ONCE IV Last administered on at 22:57; Start 01/03/16 at 23:00; Stop 01/03/16 at 23:01; Status DC Insulin Aspart (NovoLOG SUPPLEMENTAL SCALE) 1 Q6HR SQ Last administered on at 12:00; Start 01/04/16 at 12:00; Stop 03/24/16 at 13:58; Status DC Potassium Chloride (KCl 40 Meq/30 ml Liq) 40 meq Q4H NG Last administered on at 16:21; Start 01/04/16 at 13:00; Stop 01/04/16 at 17:01; Status DC Warfarin Sodium (Coumadin) 5 mg DAILY@1600 PO Last administered on 01/09/16at 17 :21; Start 01/04/16 at 16:00; Stop 01/10/16 at 10:06; Status DC Pharmacy Profile Note 0 ml @ 0 mls/hr UNSCH XX ; Start 01/04/16 at 12:30; Stop 04/20/16 at 12:04; Status DC Insulin Detemir (Levemir Inj) 10 units Q12HR SQ Last administered on 01/05/16at 08:00; Start 01/04/16 at 21:00; Stop 01/05/16 at 08:42; Status DC Insulin Detemir (Levemir Inj) 5 units NOW ONCE SQ Last administered on at 13:28; Start 01/04/16 at 12:45; Stop 01/04/16 at 12:46; Status DC Albuterol/ Ipratropium (Duoneb Neb) 1 ampule Q4HR NEB PRN NEB dyspnea Last administered on 04/19/16at 02:24; Start 01/07/16 at 08:15; Stop 04/25/16 at 18:54 ; Status DC Warfarin Sodium (Coumadin) 7.5 mg ONCE ONCE PO Last administered on 01/07/16at 16:40; Start 01/07/16 at 16:00; Stop 01/07/16 at 16:01; Status DC Nystatin (Mycostatin Powder) 1 applic Q12HR TOPICAL Last administered on t 09:00; Start 01/08/16 at 21:00 Ipratropium [place] (Atrovent Neb) 0.5 mg TID NEB NEB Last administered on 02/20at 13:17; Start 01/08/16 at 20:00; Stop 02/21/16 at 17:52; Status DC Warfarin Sodium (Coumadin) 5 mg DAILY@1600 PO Last administered on 01/11/16at 14 :26; Start 01/11/16 at 16:00; Stop 01/12/16 at 09:45; Status DC Warfarin Sodium (Coumadin) 6 mg ONCE PO Last administered on 01/10/16at 17:10; Start 01/10/16 at 16:00; Stop 01/10/16 at 21:00; Status DC Metoprolol Tartrate (Lopressor) 50 mg Q12HR GT Last administered on 01/11/16at 10:02; Start 01/10/16 at 11:00; Stop 01/11/16 at 12:30; Status DC Metoprolol Tartrate (Lopressor) 50 mg TID GT Last administered on 01/14/16at 08: 24; Start 01/11/16 at 13:00; Stop 01/14/16 at 08:28; Status DC Insulin Detemir (Levemir Inj) 10 units HS SQ Last administered on 01/11/16at 22: 23; Start 01/11/16 at 21:00; Stop 01/12/16 at 11:47; Status DC Warfarin Sodium (Coumadin) 4 mg DAILY@16 PO ; Start 01/12/16 at 16:00; Stop at 16:00; Status DC Insulin Detemir (Levemir Inj) 20 units HS SQ Last administered on 01/13/16at 20: 26; Start 01/12/16 at 21:00; Stop 01/14/16 at 08:28; Status DC Warfarin Sodium (Coumadin) 2 mg DAILY@16 PO Last administered on 01/13/16at 17: 05; Start 01/12/16 at 16:00; Stop 01/14/16 at 11:23; Status DC Insulin Detemir (Levemir Inj) 22 units HS SQ Last administered on 01/14/16at 21: 37; Start 01/14/16 at 21:00; Stop 01/15/16 at 10:06; Status DC Metoprolol Tartrate (Lopressor) 75 mg TID GT Last administered on 03/10/16at 17: 43; Start 01/14/16 at 09:00; Stop 03/10/16 at 21:13; Status DC Miscellaneous (Pill Splitter) 1 ea UNSCH PRN OTHER SEE LABEL COMMENTS; Start at 08:30 Warfarin Sodium (Coumadin) 4 mg DAILY@1600 PO Last administered on 01/21/16at 16: 51; Start 01/14/16 at 16:00; Stop 01/23/16 at 09:29; Status DC Patient Medication Teaching (Coumadin Booklet) 1 ONCE ONCE XX ; Start 01/14/16 at 16:00; Stop 01/14/16 at 16:01; Status DC Insulin Detemir (Levemir Inj) 24 units HS SQ Last administered on 03/04/16at 21: 09; Start 01/15/16 at 21:00; Stop 03/05/16 at 11:17; Status DC Citalopram Hydrobromide (CeleXA) 20 mg DAILY PEG Last administered on at 08:01; Start 01/16/16 at 09:00; Stop 01/16/16 at 09:41; Status DC Sennosides (Senna Liq) 8.8 mg BID TUBE Last administered on 02/20/16at 08:32; Start 01/15/16 at 21:00; Stop 02/20/16 at 16:13; Status DC Gadodiamide (Omniscan Pf Inj) 18 ml STK-MED ONCE IV ; Start 01/16/16 at 20:40; Stop 01/16/16 at 20:41; Status DC Sodium Chloride 1,000 ml @ 125 mls/hr Q8H IV Last administered on 01/17/16at 15 :11; Start 01/17/16 at 15:00; Stop 01/17/16 at 17:31; Status DC Ranitidine HCl (Zantac Liq) 150 mg Q24H PO Last administered on 07/28/16t 08:54 ; Start 01/18/16 at 09:00; Stop 07/30/16 at 10:05; Status DC Sodium Chloride 1,000 ml @ 75 mls/hr [id number] IV Last administered on at 05:22; Start 01/17/16 at 18:00; Stop 01/18/16 at 09:28; Status DC Sodium Chloride 38.5 meq/Sterile Water 1,009.625 ml @ 60 mls/hr [id number] IV Last administered on 01/21/16at 22:46; Start 01/18/16 at 11:00; Stop 01/22/16 at 10 :09; Status DC Potassium Chloride (KCl) 40 meq ONCE ONCE PO ; Start 01/18/16 at 09:30; Stop at 09:31; Status DC Potassium Chloride (KCl 40 Meq/30 ml Liq) 40 meq ONCE ONCE TUBE Last administered on 01/18/16at 11:08; Start 01/18/16 at 11:00; Stop 01/18/16 at 11:01 ; Status DC Water (Free Water) 300 ml Q4HR TUBE Last administered on 01/19/16at 08:00; Start 01/18/16 at 12:00; Stop 01/19/16 at 10:43; Status DC Water (Free Water) 400 ml Q4HR TUBE Last administered on 04/16/16at 04:00; Start 01/19/16 at 12:00; Stop 04/16/16 at 09:09; Status DC Potassium Chloride (KCl 40 Meq/30 ml Liq) 40 meq ONCE ONCE NG Last administered on 01/19/16at 11:41; Start 01/19/16 at 11:00; Stop 01/19/16 at 11:01; Status DC Potassium Chloride (KCl 40 Meq/30 ml Liq) 60 meq ONCE ONCE PO/TUBE Last administered on 01/21/16at 13:30; Start 01/21/16 at 11:15; Stop 01/21/16 at 11:27; Status DC Sodium Chloride 1,000 ml @ 30 mls/hr Q24H IV Last administered on 02/06/16at 11 :26; Start 01/22/16 at 11:00; Stop 02/07/16 at 14:49; Status DC Warfarin Sodium (Coumadin) 3 mg DAILY@16 PO Last administered on 01/23/16 17:19 ; Start 01/23/16 at 16:00; Stop 01/24/16 at 14:05; Status DC Warfarin Sodium (Coumadin) 3 mg DAILY@16 PO Last administered on 01/25/16at 15:59 ; Start 01/25/16 at 16:00; Stop 01/26/16 at 15:04; Status DC Warfarin Sodium (Coumadin) 4 mg ONCE@1600 ONCE PO Last administered on at 16:55; Start 01/24/16 at 16:00; Stop 01/24/16 at 16:01; Status DC Warfarin Sodium (Coumadin) 3 mg DAILY@16 PO ; Start 01/27/16 at 16:00; Stop at 16:00; Status DC Warfarin Sodium (Coumadin) 4 mg ONCE@1600 ONCE PO Last administered on at 16:52; Start 01/26/16 at 16:00; Stop 01/26/16 at 16:01; Status DC Potassium Chloride (KCl 40 Meq/30 ml Liq) 80 meq ONCE ONCE PO Last administered on 01/27/16at 07:45; Start 01/27/16 at 07:45; Stop 01/27/16 at 08:10; Status DC Warfarin Sodium (Coumadin) 4 mg DAILY@16 PO Last administered on 02/02/16at 17: 22; Start 01/27/16 at 16:00; Stop 02/03/16 at 11:37; Status DC Acetic Acid (Acetic Acid 0.25% Irr Btl) 10 ml Q8HR IRRIGATION Last administered on 02/05/16at 06:00; Start 01/28/16 at 22:00; Stop 02/05/16 at 15:51 ; Status DC Warfarin Sodium (Coumadin) 3 mg DAILY@1600 PO Last administered on 02/11/16at 17 :34; Start 02/03/16 at 16:00; Stop 02/12/16 at 12:45; Status DC Ceftriaxone Sodium 1000 mg/ Sodium Chloride 100 ml @ 200 mls/hr Q24H IV Last administered on 02/10/16at 05:23; Start 02/05/16 at 06:30; Stop 02/10/16 at 14:32 ; Status DC Acetic Acid (Acetic Acid 0.25% Irr Btl) 10 ml Q8HR IRRIGATION ; Start 02/05/16 at 16:00; Status Cancel Acetic Acid (Acetic Acid 0.25% Irr Btl) 10 ml Q8HR IRRIGATION Last administered on 04/08/17t 04:58; Start 02/05/16 at 16:00 Lactobacillus Acidophilus (Lactinex) 1 tab Q12HR PO Last administered on at 08:25; Start 02/10/16 at 21:00; Stop 02/12/16 at 16:05; Status DC Warfarin Sodium (Coumadin) 4 mg DAILY@1600 PO Last administered on 02/14/16at 15 :56; Start 02/12/16 at 16:00; Stop 02/15/16 at 10:17; Status DC Paroxetine HCl (Paxil Liq) 20 mg DAILY PEG Last administered on 02/25/16at 07:33 ; Start 02/16/16 at 09:00; Stop 02/25/16 at 10:36; Status DC Warfarin Sodium (Coumadin) 3 mg DAILY@1600 PO Last administered on 02/19/16at 16: 42; Start 02/15/16 at 16:00; Stop 02/20/16 at 08:50; Status DC Warfarin Sodium (Coumadin) 4 mg DAILY@16 PO Last administered on 02/21/16at 15:54 ; Start 02/20/16 at 16:00; Stop 02/22/16 at 08:46; Status DC Sennosides (Senna Liq) 8.8 mg DAILY TUBE Last administered on 05/26/16at 08:14 ; Start 02/21/16 at 09:00; Stop 05/27/16 at 11:51; Status DC Albuterol Sulfate (Albuterol Neb) 2.5 mg QID NEB INH Last administered on at 19:51; Start 02/21/16 at 20:00; Stop 02/25/16 at 20:00; Status DC Acetylcysteine (Mucomyst 10% Neb) 1 ml QID NEB NEB Last administered on at 16:32; Start 02/21/16 at 20:00; Stop 02/23/16 at 16:01; Status DC Warfarin Sodium (Coumadin) 3 mg DAILY@16 PO Last administered on 02/22/16at 15:59 ; Start 02/22/16 at 16:00; Stop 02/23/16 at 08:56; Status DC Warfarin Sodium (Coumadin) 3 mg DAILY@16 PO Last administered on 02/28/16at 16: 17; Start 02/24/16 at 16:00; Stop 02/29/16 at 10:04; Status DC Warfarin Sodium (Coumadin) 2 mg ONCE PO Last administered on 02/23/16at 16:22; Start 02/23/16 at 16:00; Stop 02/23/16 at 21:00; Status DC Paroxetine HCl (Paxil Liq) 20 mg DAILY@1900 PEG Last administered on 03/08/16at 18:11; Start 02/26/16 at 19:00; Stop 03/09/16 at 11:31; Status DC Warfarin Sodium (Coumadin) 3 mg DAILY@16 PO Last administered on 03/06/16at 16: 22; Start 03/01/16 at 16:00; Stop 03/09/16 at 10:30; Status DC Warfarin Sodium (Coumadin) 1 mg ONCE PO Last administered on 02/29/16at 17:28; Start 02/29/16 at 16:00; Stop 02/29/16 at 21:00; Status DC Insulin Detemir (Levemir Inj) 27 units HS SQ Last administered on 03/05/16at 20: 25; Start 03/05/16 at 21:00; Stop 03/06/16 at 10:03; Status DC Patient Medication Teaching (Coumadin Booklet) 1 ONCE ONCE XX Last administered on 03/05/16at 16:00; Start 03/05/16 at 16:00; Stop 03/05/16 at 16:01 ; Status DC Insulin Detemir (Levemir Inj) 30 units HS SQ Last administered on 03/21/16at 22: 32; Start 03/06/16 at 21:00; Stop 03/22/16 at 14:48; Status DC Trimethoprim/ Sulfamethoxazole (Bactrim 800-160 Mg/20 ml Liq) 20 ml Q12HR PO Last administered on 03/14/16at 08:01; Start 03/07/16 at 11:15; Stop 03/14/16 at 11:14; Status DC Lorazepam (Ativan Inj) 0.5 mg Q4H PRN IV PUSH seizures or agitation; Start at 23:00; Status Cancel Metronidazole (Flagyl) 500 mg Q8H PO Last administered on 03/14/16at 15:51; Start 03/08/16 at 17:00; Stop 03/14/16 at 23:00; Status DC Warfarin Sodium (Coumadin) 2 mg DAILY@16 PO Last administered on 03/09/16at 17: 20; Start 03/09/16 at 16:00; Stop 03/10/16 at 10:33; Status DC Paroxetine HCl (Paxil) 20 mg DAILY@1900 PEG Last administered on 03/11/16at 17: 55; Start 03/09/16 at 19:00; Stop 03/12/16 at 08:31; Status DC Warfarin Sodium (Coumadin) 3 mg DAILY@16 PO Last administered on 04/12/16at 15: 28; Start 03/10/16 at 16:00; Stop 04/12/16 at 16:39; Status DC Pharmacy Profile Note 0 ml @ 0 mls/hr UNSCH OTHER ; Start 03/10/16 at 14:15; Stop 03/18/16 at 11:33; Status DC Vancomycin HCl 1500 mg/Sodium Chloride 530 ml @ 265 mls/hr Q12H IV Last administered on 03/17/16at 16:26; Start 03/10/16 at 16:00; Stop 03/17/16 at 23:00 ; Status DC Miscellaneous Information SPECIFIC LAB TO BE ... ONCE ONCE XX Last administered on 03/12/16at 04:45; Start 03/12/16 at 03:45; Stop 03/12/16 at 03:46 ; Status DC Metoprolol Tartrate (Lopressor) 75 mg Q8HR PO Last administered on 04/02/16at 13 :13; Start 03/10/16 at 22:00; Stop 04/02/16 at 17:31; Status DC Paroxetine HCl (Paxil Liq) 20 mg DAILY@1900 PEG Last administered on 04/07/17t 17:40; Start 03/12/16 at 19:00; Status Future hold Warfarin Sodium (Coumadin) 1 mg ONCE PO Last administered on 03/21/16at 16:24; Start 03/21/16 at 16:00; Stop 03/21/16 at 21:00; Status DC Warfarin Sodium (Coumadin) 1 mg ONCE PO Last administered on 03/22/16at 17:46; Start 03/22/16 at 16:00; Stop 03/22/16 at 21:00; Status DC Insulin Detemir (Levemir Inj) 32 units HS SQ Last administered on 03/22/16at 20: 18; Start 03/22/16 at 21:00; Stop 03/23/16 at 13:35; Status DC Diltiazem HCl (Cardizem Cd) 120 mg DAILY PO Last administered on 04/14/16at 07: 43; Start 03/22/16 at 16:00; Stop 04/14/16 at 14:39; Status DC Hyoscyamine Sulfate (Levsin Liq) 0.125 mg Q4H PRN PEG INCREASED SECRETIONS Last administered on 04/10/16at 08:05; Start 03/22/16 at 15:15; Stop 04/11/16 at 10:24; Status DC Warfarin Sodium (Coumadin) 2 mg ONCE ONCE PO Last administered on 03/23/16at 17: 26; Start 03/23/16 at 16:00; Stop 03/23/16 at 16:01; Status DC Insulin Detemir (Levemir Inj) 34 units HS SQ Last administered on 03/23/16at 20: 01; Start 03/23/16 at 21:00; Stop 03/24/16 at 13:53; Status DC Insulin Detemir (Levemir Inj) 35 units HS SQ Last administered on 11/15/16t 22: 06; Start 03/24/16 at 21:00; Stop 01/09/17 at 15:46; Status DC Insulin Aspart (NovoLOG SUPPLEMENTAL SCALE) 1 ACHS SLIDING SCALE SQ Last administered on 04/16/16at 22:27; Start 03/24/16 at 16:00; Stop 04/19/16 at 17:19 ; Status DC Warfarin Sodium (Coumadin) 1 mg ONCE ONCE PO Last administered on 03/30/16at 16 :59; Start 03/30/16 at 16:00; Stop 03/30/16 at 16:01; Status DC Potassium Chloride (KCl 40 Meq/30 ml Liq) 40 meq ONCE ONCE NG Last administered on 03/31/16at 21:28; Start 03/31/16 at 18:30; Stop 03/31/16 at 18:31 ; Status DC Potassium Bicarb/ Potassium Chloride (K-Lyte Cl Eff) 25 meq ONCE ONCE PEG Last administered on 04/02/16at 12:01; Start 04/02/16 at 13:00; Stop 04/02/16 at 13:01; Status DC Metoprolol Tartrate (Lopressor) 75 mg BID PO Last administered on 05/28/16at 21: 03; Start 04/02/16 at 21:00; Stop 05/29/16 at 11:21; Status DC Potassium Bicarb/ Potassium Chloride (K-Lyte Cl Eff) 25 meq ONCE ONCE PEG Last administered on 04/04/16at 14:40; Start 04/04/16 at 12:30; Stop 04/04/16 at 12:31; Status DC Linezolid (Zyvox) 600 mg Q12HR PO Last administered on 04/16/16at 09:11; Start 04/05/16 at 15:00; Stop 04/16/16 at 12:00; Status DC Artificial Tears (Lacrilube Opht Oint) 1 applic Q12HR EACH EYE Last administered on 09/04/16t 21:00; Start 04/10/16 at 11:00; Stop 09/05/16 at 14:38 ; Status DC Hyoscyamine Sulfate (Levsin) 0.25 mg Q4H PRN G-TUBE INCREASED SECRETIONS Last administered on 03/07/17 06:14; Start 04/11/16 at 10:30; Stop 03/07/17 at 07:56 ; Status DC Diatrizoate Meglum/ Diatrizoate Sod ( Gastroview Liq) 18 ml ONCE ONCE PO Last administered on 04/12/16at 16:45; Start 04/12/16 at 16:15; Stop 04/12/16 at 16:16; Status DC Warfarin Sodium (Coumadin) 3 mg DAILY@16 PO ; Start 04/13/16 at 16:00; Stop 05/27/16 at 11:51; Status DC Iohexol (Omnipaque 350 Inj) 98 ml STK-MED ONCE IV Last administered on at 21:01; Start 04/12/16 at 21:01; Stop 04/12/16 at 21:02; Status DC Diltiazem HCl (Cardizem Cd) 180 mg DAILY PO ; Start 04/15/16 at 09:00; Stop at 08:50; Status DC Ondansetron HCl (Zofran Inj) 4 mg Q6HR PRN IV PUSH nausea/vomiting Last administered on 03/16/17 16:00; Start 04/14/16 at 19:45 Diltiazem HCl (Cardizem) 60 mg QID PO Last administered on 04/25/16at 17:26; Start 04/15/16 at 13:00; Stop 04/25/16 at 19:06; Status DC Sodium Chloride 500 ml @ 500 mls/hr BOLUS ONCE IV Last administered on at 09:15; Start 04/15/16 at 09:15; Stop 04/15/16 at 10:14; Status DC Potassium Chloride 10 meq/ Dextrose/Sodium Chloride 1,005 ml @ 100 mls/hr Q10H3M IV Last administered on 04/15/16at 21:03; Start 04/15/16 at 11:00; Stop 04/16/16 at 09:09; Status DC Enoxaparin Sodium (Lovenox Inj) 90 mg Q12H SQ Last administered on 04/16/16at 21 :12; Start 04/16/16 at 09:00; Stop 04/17/16 at 10:37; Status DC Water (Free Water) 200 ml Q4HR TUBE Last administered on 12/24/16 08:00; Start 04/16/16 at 12:00; Stop 12/24/16 at 10:34; Status DC Sodium Chloride 1,000 ml @ 84 mls/hr [id number] IV Last administered on at 08:38; Start 04/16/16 at 10:00; Stop 04/20/16 at 12:04; Status DC Ceftriaxone Sodium 2000 mg/ Sodium Chloride 100 ml @ 200 mls/hr Q24H IV Last administered on 05/02/16at 13:19; Start 04/16/16 at 12:00; Stop 05/03/16 at 12: 06; Status DC Acetaminophen/ Hydrocodone Bitart ([place] 5-325 Mg) 1 tab Q6HR PEG Last administered on 09/17/16 06:42; Start 04/18/16 at 18:00; Stop 09/17/16 at 09:17 ; Status DC Lactulose (Lactulose Liq) 30 ml NOW ONCE PEG Last administered on 04/19/16at 17 :21; Start 04/19/16 at 17:30; Stop 04/19/16 at 17:31; Status DC Lactulose (Lactulose Liq) 30 ml DAILY PEG Last administered on 05/26/16at 08:14 ; Start 04/20/16 at 09:00; Stop 05/27/16 at 11:39; Status DC Potassium Bicarb/ Potassium Chloride (K-Lyte Cl Eff) 50 meq ONCE ONCE PO Last administered on 04/20/16at 05:52; Start 04/20/16 at 05:45; Stop 04/20/16 at 05:46; Status DC Furosemide (Lasix Inj) 20 mg ONCE ONCE IV PUSH Last administered on 04/20/16at 17:35; Start 04/20/16 at 12:00; Stop 04/20/16 at 12:06; Status DC Insulin Aspart (NovoLOG SUPPLEMENTAL SCALE) 1 ACHS SLIDING SCALE SQ Last administered on 06/02/16at 12:10; Start 04/20/16 at 16:00; Stop 06/02/16 at 21: 44; Status DC Dextrose (D50w (Vial) Inj) 25 ml UNSCH PRN IV HYPOGLYCEMIA-SEE COMMENTS; Start 04/20/16 at 12:00; Stop 01/09/17 at 15:52; Status DC Glucagon (Glucagon Inj) 1 mg UNSCH PRN IM/SQ HYPOGLYCEMIA-SEE COMMENTS; Start 04/20/16 at 12:00; Stop 01/09/17 at 15:52; Status DC Lactobacillus Acidophilus (Lactinex) 1 tab Q12HR PEG Last administered on 06/06at 21:34; Start 04/22/16 at 09:00; Stop 06/07/16 at 09:32; Status DC Furosemide (Lasix Inj) 20 mg Q12H IV PUSH Last administered on 04/24/16at 08:52 ; Start 04/22/16 at 09:00; Stop 04/24/16 at 09:25; Status DC Potassium Bicarb/ Potassium Chloride (K-Lyte Cl Eff) 25 meq Q12HR TUBE Last administered on 05/27/16at 08:17; Start 04/22/16 at 09:00; Stop 05/27/16 at 11:51 ; Status DC Albumin Human (Albumin 25% Inj) 12.5 gm Q12H IV Last administered on 04/24/16at 08:46; Start 04/22/16 at 09:00; Stop 04/24/16 at 09:25; Status DC Furosemide (Lasix Inj) 20 mg DAILY IV PUSH Last administered on 05/08/16at 09: 01; Start 04/25/16 at 09:00; Stop 05/08/16 at 11:06; Status DC Albumin Human (Albumin 25% Inj) 12.5 gm DAILY IV Last administered on at 09:02; Start 04/25/16 at 10:00; Stop 05/08/16 at 11:06; Status DC Furosemide (Lasix Inj) 40 mg ONCE ONCE IV PUSH Last administered on 04/25/16at 18:15; Start 04/25/16 at 18:15; Stop 04/25/16 at 18:16; Status DC Albuterol/ Ipratropium (Duoneb Neb) 1 ampule Q6HR NEB NEB Last administered on 04/27/16at 15:52; Start 04/25/16 at 18:30; Stop 04/27/16 at 19:45; Status DC Ipratropium [place] (Atrovent Neb) 0.5 mg Q6HR NEB NEB Last administered on at 16:51; Start 04/25/16 at 22:00; Stop 04/27/16 at 16:44; Status DC Levalbuterol HCl (Xopenex Neb) 0.31 mg Q4HR NEB NEB Last administered on at 23:48; Start 04/25/16 at 20:00; Stop 04/27/16 at 16:43; Status DC Levalbuterol HCl (Xopenex Neb) 0.31 mg Q2HR NEB PRN NEB SHORTNESS OF BREATH; Start 04/25/16 at 18:45; Stop 04/28/16 at 10:50; Status DC Diltiazem HCl (Cardizem) 90 mg QID PEG Last administered on 07/17/16at 09:27; Start 04/25/16 at 21:00; Stop 07/17/16 at 17:52; Status DC Diltiazem HCl (Cardizem) 30 mg NOW ONCE PEG Last administered on 04/25/16at 21: 36; Start 04/25/16 at 19:15; Stop 04/25/16 at 19:16; Status DC Levalbuterol HCl (Xopenex Neb) 0.31 mg Q8HR NEB NEB ; Start 04/28/16 at 00:00; Stop 04/28/16 at 10:50; Status DC Levalbuterol HCl (Xopenex Neb) 0.63 mg Q4HR NEB PRN NEB SHORTNESS OF BREATH Last administered on 05/04/16at 15:26; Start 04/28/16 at 11:00; Stop 05/04/16 at 00:51; Status DC Levalbuterol HCl (Xopenex Neb) 0.63 mg Q8HR NEB NEB Last administered on 05/04at 00:07; Start 04/28/16 at 16:00; Stop 05/04/16 at 00:50; Status DC Polyethylene Glycol/ Electrolytes (Colyte Liq) 4,000 ml ONCE ONCE PO Last administered on 05/05/16at 08:10; Start 05/05/16 at 08:45; Stop 05/05/16 at 08 :46; Status DC Cefazolin Sodium/ Dextrose 50 ml @ 100 mls/hr ONCE ONCE IV ; Start 05/06/16 at 14:00; Stop 05/06/16 at 14:29; Status DC Metronidazole 100 ml @ 100 mls/hr ONCE ONCE IV Last administered on at 14:00; Start 05/06/16 at 14:00; Stop 05/06/16 at 14:59; Status DC Ceftriaxone Sodium 2000 mg/ Sodium Chloride 100 ml @ 200 mls/hr Q24H IV Last administered on 06/09/16at 12:36; Start 05/03/16 at 12:00; Stop 06/10/16 at 12 :48; Status DC Levalbuterol HCl (Xopenex Neb) 0.63 mg Q8HR NEB NEB Last administered on 05/05at 08:00; Start 05/04/16 at 00:49; Stop 05/05/16 at 08:07; Status DC Levalbuterol HCl (Xopenex Neb) 0.63 mg Q4HR NEB PRN NEB SHORTNESS OF BREATH Last administered on 04/08/17 01:03; Start 05/05/16 at 12:00 Levalbuterol HCl (Xopenex Neb) 0.63 mg Q8HR NEB NEB Last administered on 05/08at 23:56; Start 05/05/16 at 08:15; Stop 05/09/16 at 08:15; Status DC Potassium Bicarb/ Potassium Chloride (K-Lyte Cl Eff) 25 meq DAILY TUBE Last administered on 01/09/17 08:12; Start 05/28/16 at 09:00; Stop 01/09/17 at 15:46 ; Status DC Aspirin (Aspirin) 325 mg DAILY TUBE Last administered on 04/08/17 09:32; Start 05/27/16 at 11:40; Status Future hold Docusate Sodium (Colace Liq) 100 mg DAILY PRN PO constipation Last administered on 08/16/16 21:09; Start 05/27/16 at 11:45; Stop 08/31/16 at 09:00 ; Status DC Metoprolol Tartrate (Lopressor) 50 mg BID PO Last administered on 08/23/16 09: 03; Start 05/29/16 at 21:00; Stop 08/23/16 at 15:33; Status DC Acetaminophen/ Hydrocodone Bitart (Junction 5-325 Mg) 1 tab Q6H PRN TUBE BREAKTHROUGH PAIN Last administered on 08/02/16 15:11; Start 06/03/16 at 03:00 ; Stop 09/17/16 at 14:33; Status DC Insulin Aspart (NovoLOG SUPPLEMENTAL SCALE) 1 ACHS SLIDING SCALE SQ Last administered on 06/06/16at 21:35; Start 06/03/16 at 07:00; Stop 06/07/16 at 12 :24; Status DC Lactobacillus Acidophilus (Lactinex) 1 tab TID PEG Last administered on 09:13; Start 06/07/16 at 13:00; Stop 10/13/16 at 12:08; Status DC Insulin Aspart (NovoLOG SUPPLEMENTAL SCALE) 1 AC BREAKFAST SQ Last administered on 01/08/17 06:49; Start 06/08/16 at 07:00; Stop 01/09/17 at 15: 46; Status DC Ceftriaxone Sodium 2000 mg/ Sodium Chloride 100 ml @ 200 mls/hr Q24H IV Last administered on 07/28/16 12:19; Start 06/10/16 at 12:00; Stop 07/29/16 at 13:30 ; Status DC Heparin Sodium (Porcine) (Heparin Inj) 5,000 units Q12HR SQ Last administered on 06/11/16at 00:58; Start 06/10/16 at 14:15; Stop 06/11/16 at 06:21; Status DC Heparin Sodium (Porcine) (Heparin Inj) 5,000 units Q8HR SQ Last administered on 03/22/17 14:43; Start 06/11/16 at 14:00; Stop 03/22/17 at 18:52; Status DC Diltiazem HCl (Cardizem) 30 mg QID PEG Last administered on 08/16/16 08:31; Start 07/17/16 at 18:00; Stop 08/16/16 at 12:06; Status DC Bacitracin (Baciguent Oint) 1 applic BID TOP Last administered on 04/08/17 09: 00; Start 07/20/16 at 10:00 Lactated Ringer's 1,000 ml @ 30 mls/hr Q24H IV ; Start 07/21/16 at 17:45; Stop 08/14/16 at 12:08; Status DC Sodium Chloride 500 ml @ 30 mls/hr [id number] IV ; Start 07/21/16 at 17:45; Stop at 17:44; Status DC Insulin Human Regular (NovoLIN R INJ) See Protocol Table ... UNSCH X1 PRN SQ SEE PROTOCOL; Start 07/21/16 at 17:45; Stop 07/22/16 at 17:44; Status DC Metoprolol Tartrate (Lopressor) 25 mg UNSCH X1 PRN PO SEE LABEL COMMENTS; Start 07/21/16 at 17:45; Stop 07/22/16 at 17:44; Status DC Lidocaine/ Epinephrine (Xylocaine-Epi 1%-1:100,000 Inj) 40 ml STK-MED ONCE .ROUTE Last administered on 07/22/16 10:56; Start 07/22/16 at 10:04; Stop at 10:05; Status DC Ketamine HCl (Ketalar Inj) 500 mg STK-MED ONCE .ROUTE ; Start 07/22/16 at 10:50; Stop 07/22/16 at 10:51; Status DC Propofol (Diprivan 200 Mg/20 ml Inj) 600 mg STK-MED ONCE IV ; Start 07/22/16 at 12:00; Stop 07/23/16 at 14:36; Status DC Dextrose 1,000 ml @ 40 mls/hr Q24H ONCE IV Last administered on 07/28/16 14:33 ; Start 07/28/16 at 14:00; Stop 07/29/16 at 13:59; Status DC Ampicillin Sodium/ Sulbactam Sodium 3 gm/Sodium Chloride 100 ml @ 200 mls/hr Q6H IV Last administered on 08/01/16 12:30; Start 07/29/16 at 14:00; Stop 08/01 at 14:13; Status DC Ondansetron HCl (Zofran Inj) 4 mg ONCE ONCE IV PUSH Last administered on 02:46; Start 07/30/16 at 00:30; Stop 07/30/16 at 00:33; Status DC Lactated Ringer's 1,000 ml @ 30 mls/hr Q24H IV ; Start 07/30/16 at 06:00; Stop 08/14/16 at 12:09; Status DC Sodium Chloride 500 ml @ 30 mls/hr [id number] IV ; Start 07/30/16 at 06:00; Stop 07/31/16 at 05:59; Status DC Pantoprazole Sodium (Protonix Inj) 40 mg Q12H IV PUSH Last administered on 12:01; Start 07/30/16 at 10:15; Stop 01/26/17 at 18:02; Status DC Propofol (Diprivan 200 Mg/20 ml Inj) 200 mg STK-MED ONCE IV ; Start 07/30/16 at 09:41; Stop 07/30/16 at 10:19; Status DC Piperacillin Sod/ Tazobactam Sod 100 ml @ 200 mls/hr Q6H IV Last administered on 08/07/16 09:37; Start 08/01/16 at 16:00; Stop 08/07/16 at 16:10; Status DC Linezolid (Zyvox) 600 mg Q12HR PO Last administered on 08/22/16 09:10; Start at 21:00; Stop 08/22/16 at 15:55; Status DC Sodium Chloride ([place]) 1 spray BID NASAL Last administered on 09:00; Start 08/01/16 at 21:00 Metronidazole (Flagyl) 500 mg Q8H PO Last administered on 08/08/16 08:28; Start 08/07/16 at 16:00; Stop 08/08/16 at 16:10; Status DC Sodium Chloride 1,000 ml @ 42 mls/hr [id number] IV Last administered on 12:44; Start 08/14/16 at 12:00; Stop 08/15/16 at 10:56; Status DC Fentanyl Citrate (fentaNYL INJ) 250 mcg STK-MED ONCE .ROUTE Last administered on 08/14/16 15:36; Start 08/14/16 at 15:36; Stop 08/14/16 at 15:37; Status DC Iohexol (Omnipaque 350 Inj) 30 ml STK-MED ONCE G-TUBE Last administered on 08/14 15:45; Start 08/14/16 at 15:52; Stop 08/14/16 at 15:53; Status DC Diltiazem HCl (Cardizem) 30 mg QID PEG Last administered on 11/19/16 07:52; Start 08/16/16 at 13:00; Stop 11/19/16 at 17:31; Status DC Polyethylene Glycol (Miralax) 17 gm ONCE ONCE PEG Last administered on 11:32; Start 08/17/16 at 12:00; Stop 08/17/16 at 12:01; Status DC Amoxicillin (Trimox) 500 mg Q8HR PO Last administered on 11/19/16 13:20; Start 08/22/16 at 22:00; Stop 11/19/16 at 22:41; Status DC Cefepime HCl 1000 mg/Sodium Chloride 100 ml @ 200 mls/hr Q8H IV Last administered on 09/03/16 10:46; Start 08/23/16 at 16:00; Stop 09/03/16 at 15:02 ; Status DC Metoprolol Tartrate (Lopressor) 75 mg BID PO Last administered on 09/13/16 08: 42; Start 08/23/16 at 21:00; Stop 09/13/16 at 13:09; Status DC Docusate Sodium (Colace Liq) 100 mg BID PO Last administered on 12/25/16 09:20 ; Start 08/30/16 at 21:00; Stop 12/25/16 at 13:12; Status DC Sennosides (Senokot) 17.2 mg DAILY PO Last administered on 09/25/16 08:36; Start 08/30/16 at 14:00; Stop 09/25/16 at 16:09; Status DC Lactulose (Lactulose Liq) 30 ml DAILY PO Last administered on 11/20/16 08:03; Start 09/02/16 at 15:30; Stop 12/27/16 at 15:28; Status DC Artificial Tears (Tears Naturale Opth Soln) 1 drop BID EACH EYE Last administered on 04/08/17 09:33; Start 09/05/16 at 21:00 Midazolam HCl (Versed Inj) 2 mg STK-MED ONCE .ROUTE Last administered on 11:37; Start 09/09/16 at 11:37; Stop 09/09/16 at 11:38; Status DC Fentanyl Citrate (fentaNYL INJ) 100 mcg STK-MED ONCE .ROUTE Last administered on 09/09/16 11:38; Start 09/09/16 at 11:38; Stop 09/09/16 at 11:39; Status DC Iohexol (Omnipaque 350 Inj) 20 ml STK-MED ONCE G-TUBE Last administered on 09/09 11:50; Start 09/09/16 at 11:50; Stop 09/09/16 at 12:15; Status DC Metoprolol Tartrate (Lopressor) 50 mg BID PO Last administered on 11/19/16 07: 52; Start 09/13/16 at 21:00; Stop 11/19/16 at 17:31; Status DC Acetaminophen/ Hydrocodone Bitart (Junction 5-325 Mg) 1 tab Q6H PEG ; Start at 11:00; Stop 09/17/16 at 14:25; Status DC Acetaminophen/ Hydrocodone Bitart (Junction 5-325 Mg) 1 tab DAILY@1600 PO ; Start 09/17/16 at 16:00; Stop 09/17/16 at 16:00; Status DC Morphine Sulfate (Morphine Inj) 1 mg Q24H PRN IV PUSH dressing change 30 min before Last administered on 10/22/16 02:00; Start 09/17/16 at 14:30 Acetaminophen/ Hydrocodone Bitart (Junction 5-325 Mg) 1 tab DAILY@0000 PO Last administered on 09/17/16 23:43; Start 09/18/16 at 00:00; Stop 09/20/16 at 12:46; Status DC Acetaminophen/ Hydrocodone Bitart (Junction 5-325 Mg) 1 tab Q8H PO Last administered on 10/13/16 13:38; Start 09/20/16 at 13:00; Stop 10/13/16 at 18:29 ; Status DC Ketoconazole (Nizoral 2% Cream) 1 applic Q12HR TOPICAL Last administered on 21:00; Start 09/24/16 at 21:00; Stop 01/02/17 at 13:03; Status DC Sennosides (Senna Liq) 8.8 mg DAILY@1600 PO Last administered on 11/12/16 16: 45; Start 09/25/16 at 17:00; Stop 12/27/16 at 15:28; Status DC Sodium Biphosphate/ Sodium Phosphate (Fleets Enema (Adult)) 133 ml UNSCH PRN [place] CONSTIPATION; Start 09/25/16 at 16:00; Status Cancel Bisacodyl (Dulcolax Supp) 10 mg DAILY PRN RECTAL SEVERE CONSTIPATION IF NOT PO Last administered on 12/08/16 09:17; Start 09/26/16 at 15:30 Bisacodyl (Dulcolax Supp) 10 mg ONCE ONCE RECTAL Last administered on 16:10; Start 09/26/16 at 15:30; Stop 09/26/16 at 15:31; Status DC Cyclobenzaprine HCl (Flexeril) 5 mg Q8H PO Last administered on 10/13/16 13:37 ; Start 10/13/16 at 12:15; Stop 10/13/16 at 18:27; Status DC Magnesium Hydroxide (Milk Of Magnesia Liq) 30 ml DAILY PRN PO constipation Last administered on 12/19/16 12:33; Start 10/13/16 at 14:30; Stop 12/27/16 at 15 :28; Status DC Acetaminophen/ Hydrocodone Bitart (Junction 5-325 Mg) 1 tab Q6H PRN PO PAIN SCALE 1 TO 10; Start 10/13/16 at 18:30; Stop 10/13/16 at 18:30; Status DC Acetaminophen/ Hydrocodone Bitart (Junction 5-325 Mg) 1 tab Q6H PRN PO PAIN SCALE 1 TO 10 Last administered on 12/22/16 18:42; Start 10/13/16 at 18:45; Stop 12/27/16 at 15:28; Status DC Cyclobenzaprine HCl (Flexeril) 5 mg HS PRN PO muscle relaxant Last administered on 10/22/16 21:17; Start 10/14/16 at 14:15; Stop 12/27/16 at 15:28; Status DC Fentanyl Citrate (fentaNYL INJ) 100 mcg STK-MED ONCE .ROUTE ; Start 10/23/16 at 16:51; Stop 10/23/16 at 16:52; Status DC Glycerin (Glycerin Adult Supp) 2 gm ONCE ONCE RECTAL Last administered on 15:29; Start 10/26/16 at 15:00; Stop 10/26/16 at 15:01; Status DC Nitrofurantoin Macrocrystals (Macrobid) 100 mg BIDPC PO Last administered on 09:36; Start 10/26/16 at 15:00; Stop 10/29/16 at 14:59; Status DC Sodium Chloride 1,000 ml @ 30 mls/hr Q24H IV Last administered on 11/28/16 06 :30; Start 11/17/16 at 14:15; Stop 11/28/16 at 19:38; Status DC Piperacillin Sod/ Tazobactam Sod 50 ml @ 100 mls/hr Q6H IV Last administered on 11/21/16 16:25; Start 11/17/16 at 16:00; Stop 11/21/16 at 16:38; Status DC Sodium Chloride 1,000 ml @ 999 mls/hr BOLUS ONCE IV ; Start 11/18/16 at 10:45; Stop 11/18/16 at 11:45; Status DC Iohexol (Omnipaque 350 Inj) 20 ml STK-MED ONCE G-TUBE ; Start 11/18/16 at 18:06; Stop 11/18/16 at 18:07; Status DC Diltiazem HCl (Cardizem) 30 mg Q12H PEG Last administered on 01/09/17 02:04; Start 11/20/16 at 01:00; Stop 01/09/17 at 15:45; Status DC Metoprolol Tartrate (Lopressor) 25 mg BID PO Last administered on 12/26/16 20: 34; Start 11/19/16 at 21:00; Stop 12/27/16 at 15:28; Status DC Loperamide HCl (Imodium Liq) 2 mg UNSCH PRN PO DIARRHEA; Start 11/20/16 at 15:30 ; Stop 11/20/16 at 15:30; Status DC Loperamide HCl (Imodium Liq) 2 mg Q6H PRN PO DIARRHEA Last administered on 02:04; Start 11/20/16 at 15:30; Stop 12/27/16 at 15:28; Status DC Aztreonam 2000 mg/ Sodium Chloride 100 ml @ 200 mls/hr Q6H IV Last administered on 11/28/16 12:25; Start 11/21/16 at 18:00; Stop 11/28/16 at 17:01 ; Status DC Acetylcysteine (Mucomyst 10% Neb) 2 ml Q6HR NEB PRN NEB Mucolysis Last administered on 11/23/16 10:08; Start 11/22/16 at 16:15; Stop 11/23/16 at 18:00; Status DC Acetylcysteine (Mucomyst 10% Neb) 2 ml Q8HR NEB NEB Last administered on 08:00; Start 11/23/16 at 18:00; Stop 11/27/16 at 18:00; Status DC Sodium Chloride 1,000 ml @ 125 mls/hr Q8H IV Last administered on 01/11/17 03 :35; Start 11/28/16 at 19:45; Stop 01/11/17 at 08:39; Status DC Acetylcysteine (Mucomyst 10% Neb) 2 ml Q4HR NEB PRN NEB Thick secretions. ; Start 11/28/16 at 23:30; Stop 12/02/16 at 23:30; Status DC Iodixanol (VISIPAQUE 320 INJ (Rad Spec)) 10 ml STK-MED ONCE J-TUBE Last administered on 12/04/16 18:12; Start 12/04/16 at 18:12; Stop 12/04/16 at 18:13 ; Status DC Iohexol (Omnipaque 350 Inj) 15 ml STK-MED ONCE .XX Last administered on 16:25; Start 12/20/16 at 16:25; Stop 12/20/16 at 16:26; Status DC Water (Free Water) 150 ml Q6HR TUBE Last administered on 01/01/17 05:06; Start 12/24/16 at 12:00; Stop 01/01/17 at 10:23; Status DC Magnesium Hydroxide (Milk Of Magnesia Liq) 30 ml DAILY PO Last administered on 12/26/16 09:08; Start 12/26/16 at 09:00; Stop 12/27/16 at 15:28; Status DC Acetaminophen/ Codeine Phosphate (Tylenol - Codeine 120-12 Liq) 5 ml Q4H PRN G- TUBE pain 2-10 Last administered on 03/31/17 05:50; Start 12/27/16 at 15:30 Cyclobenzaprine HCl (Flexeril) 5 mg HS PRN PEG muscle relaxant ; Start 12/27/16 at 15:30; Stop 02/13/17 at 08:51; Status DC Lactulose (Lactulose Liq) 30 ml DAILY PEG Last administered on 01/28/17 07:57 ; Start 12/28/16 at 09:00; Stop 01/29/17 at 17:48; Status DC Loperamide HCl (Imodium Liq) 2 mg Q6H PRN PEG DIARRHEA Last administered on 20:38; Start 12/27/16 at 15:30 Magnesium Hydroxide (Milk Of Magnesia Liq) 30 ml DAILY PRN PEG mild-moderate constipation Last administered on 02/11/17 08:46; Start 12/27/16 at 15:30 Magnesium Hydroxide (Milk Of Magnesia Liq) 30 ml DAILY PEG Last administered on 01/19/17 08:44; Start 12/28/16 at 09:00; Status Future Hold Metoprolol Tartrate (Lopressor) 25 mg BID PEG Last administered on 01/09/17 08 :13; Start 12/27/16 at 21:00; Stop 01/09/17 at 15:57; Status DC Sennosides (Senna Liq) 8.8 mg DAILY@1600 PEG Last administered on 03/24/17 17: 13; Start 12/27/16 at 16:00; Status Future Hold Lactulose (Lactulose Liq) 30 ml DAILY PRN PEG severe constipation ; Start at 15:30 Iohexol (Omnipaque 350 Inj) 15 ml STK-MED ONCE G-TUBE Last administered on 12/31 16:40; Start 12/31/16 at 16:50; Stop 12/31/16 at 16:51; Status DC Water (Free Water) 200 ml Q6HR TUBE Last administered on 01/09/17 12:00; Start 01/01/17 at 12:00; Stop 01/09/17 at 15:46; Status DC Propofol 100 ml @ As Directed STK-MED ONCE .ROUTE ; Start 01/09/17 at 15:06; Stop 01/09/17 at 15:07; Status DC Diltiazem HCl (Cardizem Inj) 25 mg STK-MED ONCE .ROUTE ; Start 01/09/17 at 15:39 ; Stop 01/09/17 at 15:40; Status DC Diltiazem HCl (Cardizem) 30 mg QID PEG Last administered on 03/28/17 12:52; Start 01/09/17 at 18:00; Stop 03/28/17 at 14:04; Status DC Diltiazem HCl (Cardizem Inj) 10 mg ONCE ONCE IV Last administered on 16:00; Start 01/09/17 at 16:00; Stop 01/09/17 at 16:01; Status DC Albuterol/ Ipratropium (Duoneb Neb) 1 ampule Q6HR NEB NEB Last administered on 01/13/17 15:12; Start 01/09/17 at 16:00; Stop 01/13/17 at 16:00; Status DC Dextrose (D50w (Vial) Inj) 50 ml UNSCH PRN IV HYPOGLYCEMIA-SEE COMMENTS; Start 01/09/17 at 16:00; Stop 03/28/17 at 14:08; Status DC Glucagon (Glucagon Inj) 1 mg UNSCH PRN OTHER HYPOGLYCEMIA-SEE COMMENTS; Start 01/09/17 at 16:00; Stop 03/28/17 at 14:08; Status DC Insulin Human Regular (NovoLIN R SUPPLEMENTAL SCALE) 1 Q6H SQ Last administered on 01/25/17t 16:00; Start 01/09/17 at 16:00; Stop 01/26/17 at 18:01; Status DC Potassium Chloride 100 ml @ 50 mls/hr Q2H PRN IV For Potassium 2.8 - 3.2 mEq/L ; Start 01/09/17 at 16:00; Stop 01/28/17 at 11:54; Status DC Potassium Chloride 100 ml @ 50 mls/hr Q2H PRN IV For Potassium 2.8 - 3.2 mEq/L ; Start 01/09/17 at 16:00; Stop 01/28/17 at 11:54; Status DC Potassium Bicarb/ Potassium Chloride (K-Lyte Cl Eff) 50 meq UNSCH PRN PO For Potassium 3.3 - 3.5 mEq/L; Start 01/09/17 at 16:00; Stop 01/28/17 at 11:54; Status DC Potassium Chloride 100 ml @ 25 mls/hr UNSCH PRN IV For Potassium 3.3 - 3.5 mEq /L; Start 01/09/17 at 16:00; Stop 01/28/17 at 11:54; Status DC Potassium Chloride 100 ml @ 50 mls/hr Q2H PRN IV For Potassium 3.3 - 3.5 mEq/L ; Start 01/09/17 at 16:00; Stop 01/28/17 at 11:54; Status DC Magnesium Sulfate 4 gm/Sodium Chloride 100 ml @ 50 mls/hr UNSCH PRN IV For Magnesium 0.9 - 1.1 mg/dL; Start 01/09/17 at 16:00; Stop 01/28/17 at 11:54; Status DC Magnesium Oxide (Mag-Ox) 800 mg UNSCH PRN PO For Magnesium 1.2 - 1.6 mg/dL; Start 01/09/17 at 16:00; Stop 01/28/17 at 11:54; Status DC Magnesium Sulfate 2 gm/Sodium Chloride 100 ml @ 50 mls/hr UNSCH PRN IV For Magnesium 1.2 - 1.6 mg/dL; Start 01/09/17 at 16:00; Stop 01/28/17 at 11:54; Status DC Potassium Phosphate (K-Phos) 2,000 mg Q4H PRN PO For Phosphorus < 2.5 mg/dL; Start 01/09/17 at 16:00; Stop 01/28/17 at 11:54; Status DC Sodium Phosphate 30 mmol/Sodium Chloride 250 ml @ 42 mls/hr UNSCH PRN IV For Phosphorus < 2.5 mg/dL Last administered on 01/20/17 06:00; Start 01/09/17 at 16 :00; Stop 01/28/17 at 11:54; Status DC Potassium Phosphate (K-Phos) 2,000 mg UNSCH PRN PO/TUBE SEE LABEL COMMENTS; Start 01/09/17 at 16:00; Stop 01/28/17 at 11:54; Status DC Potassium Phosphate 30 mmol/ Sodium Chloride 260 ml @ 42 mls/hr UNSCH PRN IV SEE LABEL COMMENTS Last administered on 01/13/17 10:15; Start 01/09/17 at 16:00 ; Stop 01/28/17 at 11:54; Status DC Cefepime HCl 1000 mg/Sodium Chloride 100 ml @ 200 mls/hr Q8H IV Last administered on 01/13/17 15:20; Start 01/09/17 at 16:00; Stop 01/13/17 at 15:24 ; Status DC Vancomycin HCl 1000 mg/Sodium Chloride 250 ml @ 250 mls/hr Q12H IV ; Start at 16:00; Stop 01/09/17 at 16:22; Status DC Pharmacy Profile Note 0 ml @ 0 mls/hr UNSCH OTHER ; Start 01/09/17 at 16:00; Stop 01/13/17 at 10:54; Status DC Sodium Chloride 1,000 ml @ 999 mls/hr BOLUS ONCE IV Last administered on 01/09 16:15; Start 01/09/17 at 16:15; Stop 01/09/17 at 17:15; Status DC Vancomycin HCl 1250 mg/Sodium Chloride 262.5 ml @ 262.5 mls/ hr Q12H IV Last administered on 01/11/17 18:50; Start 01/09/17 at 18:00; Stop 01/11/17 at 19:03 ; Status DC Miscellaneous Information SPECIFIC LAB TO BE ELISA... ONCE ONCE .XX Last administered on 01/11/17 05:45; Start 01/11/17 at 05:45; Stop 01/11/17 at 05:46 ; Status DC Propofol 100 ml @ As Directed STK-MED ONCE .ROUTE Last administered on 17:18; Start 01/09/17 at 17:18; Stop 01/09/17 at 17:19; Status DC Iohexol (Omnipaque 350 Inj) 75 ml STK-MED ONCE IV Last administered on 18:11; Start 01/09/17 at 18:11; Stop 01/09/17 at 18:12; Status DC Propofol 100 ml @ 0 mls/hr TITRATE IV Last administered on 01/10/17 01:23; Start 01/09/17 at 21:00; Stop 01/10/17 at 07:23; Status DC Metronidazole 100 ml @ 100 mls/hr Q8H IV Last administered on 01/15/17 07:36 ; Start 01/10/17 at 01:00; Stop 01/15/17 at 15:03; Status DC Micafungin Sodium 150 mg/Sodium Chloride 100 ml @ 100 mls/hr Q24H IV Last administered on 01/13/17 02:40; Start 01/10/17 at 02:00; Stop 01/13/17 at 10:54 ; Status DC Sodium Chloride 1,000 ml @ 999 mls/hr BOLUS ONCE IV Last administered on 01/10 08:39; Start 01/10/17 at 07:30; Stop 01/10/17 at 08:30; Status DC Fentanyl Citrate 250 ml @ 0 mls/hr TITRATE IV Last administered on 01/10/17 08 :36; Start 01/10/17 at 07:30; Stop 01/20/17 at 07:02; Status DC Miscellaneous Information SPECIFIC LAB TO BE DRAWN:VANCO TROUGHRESCHEDU... ONCE ONCE .XX Last administered on 01/11/17 17:00; Start 01/11/17 at 17:45; Stop 01/11/17 at 17:46; Status DC Vancomycin HCl 1600 mg/Sodium Chloride 516 ml @ 250 mls/hr Q8H IV Last administered on 01/13/17 00:31; Start 01/12/17 at 00:00; Stop 01/13/17 at 10:55 ; Status DC Miscellaneous Information SPECIFIC LAB TO BE DRAWN:VANCO TROUGH DATE TO BE DR... ONCE ONCE .XX Last administered on 01/12/17 15:45; Start 01/12/17 at 15 :45; Stop 01/12/17 at 15:46; Status DC Etomidate (Amidate Inj) 20 mg STK-MED ONCE .ROUTE ; Start 01/13/17 at 07:34; Stop 01/13/17 at 07:35; Status DC Succinylcholine Chloride (Quelicin Inj) 200 mg STK-MED ONCE .ROUTE ; Start 01/13 at 07:34; Stop 01/13/17 at 07:35; Status DC Propofol 50 ml @ As Directed STK-MED ONCE .ROUTE ; Start 01/13/17 at 07:35; Stop 01/13/17 at 07:36; Status DC Cefepime HCl 2000 mg/Sodium Chloride 100 ml @ 200 mls/hr Q8H IV Last administered on 01/20/17 12:28; Start 01/13/17 at 20:00; Stop 01/20/17 at 16:55; Status DC Etomidate (Amidate Inj) 20 mg STK-MED ONCE .ROUTE ; Start 01/15/17 at 07:45; Stop 01/15/17 at 07:46; Status DC Succinylcholine Chloride (Quelicin Inj) 200 mg STK-MED ONCE .ROUTE ; Start 01/15 at 07:45; Stop 01/15/17 at 07:46; Status DC Piperacillin Sod/ Tazobactam Sod 100 ml @ 200 mls/hr Q6H IV Last administered on 01/27/17 05:07; Start 01/20/17 at 17:00; Stop 01/27/17 at 09:00; Status DC Sodium Chloride 1,000 ml @ 42 mls/hr [id number] IV Last administered on 01/25/17 11:53; Start 01/23/17 at 12:15; Stop 01/25/17 at 15:41; Status DC Iohexol (Omnipaque 350 Inj) 20 ml STK-MED ONCE .XX Last administered on 17:57; Start 01/24/17 at 17:57; Stop 01/24/17 at 17:58; Status DC Insulin Human Regular (NovoLIN R SUPPLEMENTAL SCALE) 1 Q6H SQ Last administered on 01/29/17 16:00; Start 01/26/17 at 22:00; Stop 01/30/17 at 09:47 ; Status DC Lansoprazole (Prevacid Odt) 30 mg BID NG Last administered on 04/08/17 09:32; Start 01/26/17 at 21:00 Lactobacillus Acidophilus (Lactinex Pkt) 1 gm TID G-TUBE Last administered on 08:05; Start 01/28/17 at 13:00; Stop 02/10/17 at 13:02; Status DC Arginine HCl (Ashish Powder) 1 pack BID G-TUBE Last administered on 03/19/17 09 :00; Start 02/10/17 at 21:00; Stop 03/19/17 at 15:18; Status DC Ferrous Sulfate (Ferrous Sulfate Liq) 300 mg DAILY PO Last administered on 04/07 08:07; Start 02/14/17 at 09:00 Ascorbic Acid (Vitamin C) 1,000 mg DAILY PO Last administered on 04/07/17 08: 08; Start 02/14/17 at 09:00 Iohexol (Omnipaque 350 Inj) 10 ml STK-MED ONCE G-TUBE Last administered on 03/10 21:07; Start 02/14/17 at 19:37; Stop 02/14/17 at 19:38; Status DC Sodium Chloride 500 ml @ 500 mls/hr BOLUS ONCE IV Last administered on 11:31; Start 02/18/17 at 10:45; Stop 02/18/17 at 11:44; Status DC Hyoscyamine Sulfate (Levsin) 0.25 mg BID PO Last administered on 02/25/17 08:27 ; Start 02/22/17 at 21:00; Stop 02/25/17 at 20:59; Status DC Ceftriaxone Sodium 1000 mg/ Sodium Chloride 100 ml @ 200 mls/hr Q24H IV Last administered on 02/23/17 21:15; Start 02/22/17 at 20:00; Stop 02/24/17 at 16:11; Status DC Cefepime HCl 1000 mg/Sodium Chloride 100 ml @ 200 mls/hr Q8H IV Last administered on 02/26/17 08:31; Start 02/24/17 at 17:00; Stop 02/26/17 at 08:58; Status DC Bacitracin (Bacitracin Oint Packet) 0.9 gm DAILY TOPICAL Last administered on 08:14; Start 02/25/17 at 09:00 Piperacillin Sod/ Tazobactam Sod 50 ml @ 100 mls/hr Q6H IV Last administered on 03/05/17 04:29; Start 02/26/17 at 11:00; Stop 03/05/17 at 10:59; Status DC Propofol (Diprivan 200 Mg/20 ml Inj) 150 mg STK-MED ONCE IV ; Start 02/26/17 at 11:32; Stop 02/26/17 at 12:22; Status DC Esmolol HCl (Brevibloc Bolus Inj) 10 mg STK-MED ONCE IV ; Start 02/26/17 at 11:32 ; Stop 02/26/17 at 12:22; Status DC Diatrizoate Meglum/ Diatrizoate Sod ( Gastroview Liq) 18 ml ONCE ONCE PO Last administered on 02/26/17 18:58; Start 02/26/17 at 17:30; Stop 02/26/17 at 17: 31; Status DC Iohexol (Omnipaque 350 Inj) 95 ml STK-MED ONCE IV Last administered on 02:31; Start 02/27/17 at 02:31; Stop 02/27/17 at 02:32; Status DC Sodium Chloride 1,000 ml @ 42 mls/hr [id number] IV Last administered on 00:07; Start 02/27/17 at 08:15; Stop 03/01/17 at 07:47; Status DC Morphine Sulfate (Morphine Inj) 1 mg NOW ONCE IV PUSH Last administered on 07:30; Start 02/28/17 at 07:30; Stop 02/28/17 at 07:31; Status DC Sodium Chloride 250 ml @ 15 mls/hr ONCE ONCE IV ; Start 02/28/17 at 09:30; Stop 03/01/17 at 02:13; Status DC Furosemide (Lasix Inj) 20 mg ONCE ONCE IV ; Start 02/28/17 at 10:00; Stop 02/28 at 10:01; Status DC Fentanyl Citrate (fentaNYL INJ) 250 mcg STK-MED ONCE .ROUTE ; Start 03/03/17 at 16:21; Stop 03/03/17 at 16:22; Status DC Miscellaneous Information ALL NURSING DEPARTME... UNSCH PRN .XX SEE LABEL COMMENTS; Start 03/03/17 at 16:07; Stop 03/04/17 at 16:06; Status DC Hyoscyamine Sulfate (Levsin) 0.25 mg Q4H G-TUBE Last administered on 03/09/17 09:45; Start 03/07/17 at 10:00; Stop 03/09/17 at 14:47; Status DC Albuterol/ Ipratropium (Duoneb Neb) 1 ampule Q4HR WHILE AWAKE NEB NEB Last administered on 03/11/17 08:36; Start 03/07/17 at 12:00; Stop 03/11/17 at 12:00 ; Status DC Hyoscyamine Sulfate (Levsin) 0.25 mg Q8H G-TUBE Last administered on 03/16/17 05:09; Start 03/09/17 at 22:00; Stop 03/16/17 at 10:01; Status DC Pharmacy Profile Note 0 ml @ 0 mls/hr UNSCH OTHER ; Start 03/10/17 at 09:00; Stop 03/15/17 at 15:12; Status DC Vancomycin HCl 1250 mg/Sodium Chloride 262.5 ml @ 262.5 mls/ hr Q12H IV ; Start 03/10/17 at 09:00; Status UNV Vancomycin HCl 1250 mg/Sodium Chloride 262.5 ml @ 250 mls/hr Q12H IV Last administered on 03/12/17 11:08; Start 03/10/17 at 11:00; Stop 03/13/17 at 12:51 ; Status DC Miscellaneous Information SPECIFIC LAB TO BE ELISA... ONCE ONCE .XX Last administered on 03/11/17 21:38; Start 03/11/17 at 22:45; Stop 03/11/17 at 22:46 ; Status DC Sodium Chloride 500 ml @ 500 mls/hr BOLUS ONCE IV Last administered on 10:45; Start 03/10/17 at 10:45; Stop 03/10/17 at 11:44; Status DC Iohexol (Omnipaque 350 Inj) 71 ml STK-MED ONCE IVCONTRAST ; Start 03/10/17 at 21 :04; Stop 03/10/17 at 21:05; Status DC Miscellaneous Information SPECIFIC LAB TO BE DRAWN:VANCOMYCIN TROUGH DATE TO... ONCE ONCE .XX Last administered on 03/12/17 10:45; Start 03/12/17 at 10:45; Stop 03/12/17 at 10:46; Status DC Vancomycin HCl 1500 mg/Sodium Chloride 515 ml @ 257.5 mls/ hr Q24H IV Last administered on 03/15/17 14:17; Start 03/13/17 at 15:00; Stop 03/15/17 at 15:12 ; Status DC Miscellaneous Information SPECIFIC LAB TO BE DRAWN:VANCOMYCIN TROUGH DATE TO... ONCE ONCE .XX ; Start 03/16/17 at 14:45; Stop 03/16/17 at 14:45; Status DC Gadodiamide (Omniscan Pf Inj) 16 ml STK-MED ONCE IV PUSH Last administered on 16:35; Start 03/14/17 at 16:35; Stop 03/14/17 at 16:36; Status DC Levofloxacin (Levaquin) 500 mg DAILY PO Last administered on 03/20/17 09:52; Start 03/15/17 at 16:00; Stop 03/20/17 at 10:15; Status DC Hyoscyamine Sulfate (Levsin) 0.25 mg Q4H G-TUBE Last administered on 03/18/17 09:11; Start 03/16/17 at 14:00; Stop 03/18/17 at 14:38; Status DC Hyoscyamine Sulfate (Levsin Liq) 0.125 mg ONCE ONCE PO Last administered on 11:00; Start 03/16/17 at 11:00; Stop 03/16/17 at 11:01; Status DC Guaifenesin/ Codeine Phosphate (Robitussin Ac 200-20 Mg/10 ml Liq) 10 ml ONCE ONCE PEG ; Start 03/16/17 at 15:45; Stop 03/16/17 at 15:46; Status DC Hyoscyamine Sulfate (Levsin) 0.25 mg Q8HR G-TUBE Last administered on 04:59; Start 03/18/17 at 22:00 Warfarin Sodium (Coumadin) 5 mg DAILY@1600 PO Last administered on 03/22/17 18: 48; Start 03/19/17 at 16:30; Stop 03/23/17 at 12:09; Status DC Pharmacy Profile Note 0 ml @ 0 mls/hr UNSCH OTHER ; Start 03/19/17 at 15:30 Sodium Chloride 1,000 ml @ 84 mls/hr [id number] IV Last administered on 03/24/17 06:18; Start 03/22/17 at 19:00; Stop 03/24/17 at 12:13; Status DC Warfarin Sodium (Coumadin) 4 mg DAILY@1600 PO Last administered on 03/23/17 14: 38; Start 03/23/17 at 16:00; Stop 03/25/17 at 10:39; Status DC Vancomycin HCl 1000 mg/Sodium Chloride 250 ml @ 250 mls/hr ONCE ONCE IV ; Start 03/24/17 at 12:15; Stop 03/24/17 at 12:50; Status DC Piperacillin Sod/ Tazobactam Sod 100 ml @ 200 mls/hr Q8H IV Last administered on 04/08/17 04:59; Start 03/24/17 at 14:00 Vancomycin HCl 1000 mg/Sodium Chloride 250 ml @ 250 mls/hr ONCE ONCE IV Last administered on 03/24/17 17:14; Start 03/24/17 at 15:00; Stop 03/24/17 at 15:59; Status DC Propofol (Diprivan 200 Mg/20 ml Inj) 200 mg STK-MED ONCE IV ; Start 03/03/17 at 12:00; Stop 03/25/17 at 08:35; Status DC Ondansetron HCl (Zofran Inj) 4 mg STK-MED ONCE IV PUSH ; Start 03/03/17 at 12:00 ; Stop 03/25/17 at 08:35; Status DC Warfarin Sodium (Coumadin) 3 mg DAILY@1600 PO Last administered on 03/26/17 14: 56; Start 03/25/17 at 16:00; Stop 03/28/17 at 09:45; Status DC Insulin Aspart (NovoLOG SUPPLEMENTAL SCALE) 1 ACHS SLIDING SCALE SQ Last administered on 04/08/17 09:53; Start 03/26/17 at 21:00 Dextrose (D50w (Vial) Inj) 50 ml UNSCH PRN IV PUSH HYPOGLYCEMIA - SEE COMMENTS ; Start 03/26/17 at 18:15 Glucagon (Glucagon Inj) 1 mg UNSCH PRN OTHER HYPOGLYCEMIA-SEE COMMENTS; Start 03/26/17 at 18:15 Insulin Detemir (Levemir Inj) 5 units Q12HR SQ Last administered on 03/28/17 07 :49; Start 03/27/17 at 21:00; Stop 03/28/17 at 11:01; Status DC Warfarin Sodium (Coumadin) 2 mg DAILY@1600 PO Last administered on 03/31/17 16 :14; Start 03/28/17 at 16:00; Stop 03/31/17 at 16:34; Status DC Insulin Detemir (Levemir Inj) 10 units Q12HR SQ Last administered on 04/08/17 09:54; Start 03/28/17 at 21:00 Diltiazem HCl (Cardizem) 60 mg QID PEG Last administered on 04/08/17 09:32; Start 03/28/17 at 18:00 Diltiazem HCl (Cardizem) 30 mg ONCE ONCE G-TUBE Last administered on 21:15; Start 03/30/17 at 21:15; Stop 03/30/17 at 21:16; Status DC Warfarin Sodium (Coumadin) 1 mg ONCE ONCE PO Last administered on 03/31/17 17 :54; Start 03/31/17 at 16:45; Stop 03/31/17 at 16:46; Status DC Warfarin Sodium (Coumadin) 3 mg DAILY@1600 PO Last administered on 04/03/17 15 :12; Start 04/01/17 at 16:00; Stop 04/03/17 at 16:43; Status DC Sodium Chloride 250 ml @ 250 mls/hr BOLUS ONCE IV Last administered on 13:29; Start 04/01/17 at 12:30; Stop 04/01/17 at 13:29; Status DC Sodium Chloride 1,000 ml @ 65 mls/hr [id number] IV Last administered on 04:59; Start 04/01/17 at 12:30 Sodium Chloride 250 ml @ 250 mls/hr BOLUS ONCE IV Last administered on 22:45; Start 04/01/17 at 22:45; Stop 04/01/17 at 23:44; Status DC Sodium Chloride 250 ml @ 15 mls/hr ONCE ONCE IV ; Start 04/02/17 at 10:45; Stop 04/03/17 at 03:24; Status DC Acetaminophen (Tylenol) 650 mg Q4H PRN PO SEE LABEL COMMENTS Last administered on 04/07/17 08:07; Start 04/02/17 at 10:45; Stop 04/07/17 at 08:31; Status DC Diphenhydramine HCl (Benadryl) 25 mg Q4H PRN PO SEE LABEL COMMENTS Last administered on 04/03/17 05:26; Start 04/02/17 at 10:45 Furosemide (Lasix Inj) 20 mg ONCE ONCE IV ; Start 04/02/17 at 10:45; Stop 04/02 at 11:18; Status DC Warfarin Sodium (Coumadin) 4 mg DAILY@1600 PO ; Start 04/04/17 at 16:00; Stop at 16:00; Status DC Warfarin Sodium (Coumadin) 1 mg ONCE ONCE PO Last administered on 04/03/17 17 :23; Start 04/03/17 at 16:45; Stop 04/03/17 at 16:46; Status DC Fluconazole (Diflucan) 200 mg DAILY PO Last administered on 04/07/17 08:08; Start 04/06/17 at 09:00 Warfarin Sodium (Coumadin) 2 mg ONCE ONCE PO Last administered on 04/06/17 16 :00; Start 04/06/17 at 16:00; Stop 04/06/17 at 16:01; Status DC Warfarin Sodium (Coumadin) 3 mg DAILY@1600 PO Last administered on 9/18/17at 17 :40; Start 04/07/17 at 16:00 Sodium Chloride 500 ml @ 500 mls/hr BOLUS ONCE IV Last administered on t 11:45; Start 04/07/17 at 11:45; Stop 04/07/17 at 12:44; Status DC Gadodiamide (Omniscan Pf Inj) 16 ml STK-MED ONCE IV PUSH Last administered on t 15:54; Start 04/07/17 at 15:54; Stop 04/07/17 at 15:55; Status DC Sodium Chloride 500 ml @ 500 mls/hr BOLUS ONCE IV ; Start 04/08/17 at 10:00; Stop 04/08/17 at 10:59 Date of Insertion: Mar 03, 2017 A/P Problem List: (1) CVA (cerebral vascular accident) ICD Code: I63.9 - Cerebral infarction, unspecified Status: Acute (2) A-fib ICD Code: I48.91 - Unspecified atrial fibrillation Status: Chronic (3) DM (diabetes mellitus) ICD Code: E11.9 - Type 2 diabetes mellitus without complications Status: Chronic (4) Hyponatremia ICD Code: E87.1 - Hypo-osmolality and hyponatremia Status: Acute Assessment and Plan 60 year-old male with past medical history of paroxysmal A. fib, hypertension, stage III non-Hodgkin's lymphoma status post chemotherapy who came into the hospital with altered mental status. Respiratory failure -Increased respiratory rate most likely secondary to fever. -Chest x-ray showed chronic hypoinflation and atelectasis. ABG done yesterday. Patient evaluate by instrumentation controls engineer and stated no transfer to ICU and does not need to be on ventilator at the moment. -Continue supplement with oxygen. -Continue to monitor and if patient requires increased amount of oxygen or respiratory failure worsens will need to transfer to the ICU. PEG tube site cellulitis - ID following, appreciate their assistance - wound culture positive for Kleb pneumo sensitive to Levaquin - SP treatment with IV Levaquin x 5 days however there is still purulence observed. Continue wound care. Reculture wound. - As per Wound care recommendations. Cleanse around PEG tube site with normal saline and apply drain sponge around tube secure tube and drain sponge with medifix tape change as needed. Please use skin prep before applying adhesives to skin. Continue. 03/23 purulent discharge observed from PEG site - re ordered wound culture and will reconsult ID. 03/24 ID reconsulted recommendations pending. Patient with low grade fever overnight with a tmax of 99.7. Will start on Iv broad spectrum antibiotics ( Vancomycin and Zosyn IV), check blood cultures, CXR and urinalysis 03/25 UA (+) with urine culture growing gram negative rods. Continue IV zosyn and fu ID recommendations. blood cultures negative. Consult infectious GI to asses PEG tube. 03/26 GI recommendations pending regarding PEG tube. Continue IV zosyn for now. 03/27 Continue antibiotics as per ID. Continue Zosyn, repeat cultures if febrile. 03/24 Urine culture is growing pseudomonas. 04/01 urine cx with no growth x 48hrs. 03/23 wound culture growing MDR pseudomonas. 03/25 BCX with no growth x 5 days. 04/04 wound culture Sharri and group D enterococcus. GI consulted did not recommend removing PEG. Fever -Patient continues to have fever. - uncertain source patient has no leukocytosis. - Patient currently on Zosyn - Blood cultures show no growth, CXR shows mild interstitial prominence. UA negative. Sputum cx growing Pseudomonas. Follow up on urine cx results wound culture positive for yeast species. PEG wound cultures growing Sharri and group D enterococcus. -Pending repeat blood cultures pending. -Dealt with Dr. Alvarez in regards to continuous fevers. MRI showed multiple liver lesions. Order placed by Dr. Alvarez for biopsy of lesions. Continue management per infectious disease. CAREN - Resolved. 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 - CT of the abdomen showed bladder mass right posteriorly with apparent extravesical extension and clot formation. - Urology spoke with family member, daughter, states that he's not recommending biopsy of the bladder mass. However daughter insisted on biopsy. Patient s/p cystoscopy and palliative transurethral resection of bladder tumor greater than 5 cm originating from right bladder wall performed by Dr. Sewell . 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 - Oncology following - appreciate their assistance. Family requesting aggressive therapy. CT chest negative for malignancy. MRI completed. Patient is not a candidate for chemotherapy. Family has decided on palliative XRT treatment and would like it to start MIGEL. Consult placed for radiation oncology. - Palliative care following, appreciate their assistance. - Continue to flush lopez catheter PRN. Monitor for recurrence of hematuria - Patient is currently undergoing radiation therapy. Monitor for side effects. - 03/28 Mild hematuria today, continue to monitor urine output or for side effects. Hold Coumadin for now until hematuria resolves. Resume Coumadin once hematuria resolves. - 03/29 Continues on Coumadin. No observed hematuria. - 04/02 Liver US shows small hypoechoic lesion in the right hepatic lobe that is not convincing for a cyst or other benign structure. A small metastatic lesion would be in the differential. Hepatomegaly. Sludge and small stones in the gallbladder. No evidence of cholecystitis or biliary obstruction. - 04/04 pinkish urine in bag. Monitor H/H closely. Monitor INR closely. Patient has completed 01/27 radiations treatments. Plan to discharge to accepting facility after XRT completed. Coumadin held because of this. Now patient needs a procedure so continue to hold Coumadin. 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 Intermittently tracks with eyes. - Continue Keppra 500mg BID for seizure prophylaxis. Keppra level 17.8. - PT/OT signed off as patient is unable to participate. - On Paxil 20 by mouth daily for depression. - On acetaminophen with codeine for pain scale of 2-10. - Morphine 1 mg every 24 hours when necessary for dressing change Chronic respiratory failure secondary to CVA - Status post tracheostomy. Continue pulmonary toilet and bronchodilators as needed. Continue trach care, suctioning. Increased secretions improved with scheduled Levsin. Decreased dosing of scheduled Levsin to q8h. - Pulmonary currently following, appreciate assistance. - Duo nebs every 4 hours while awake Atrial fibrillation, controlled Hypertension Dyslipidemia - Continue rate control with Cardizem and metoprolol. - [id number] score 4 - Echocardiogram in November 2015 shows preserved ejection fraction. - Coumadin held.. Pharmacy to dose. Continue to monitor INR. - Continue aspirin - Continue on Cardizem 60mg QID History of non-Hodgkin's lymphoma - Status post brain biopsy on December 13 by neurosurgery. Pathology consistent with acute infarct without evidence of lymphoma. Diabetes mellitus Type 2 - Hemoglobin A1c is 5.5. - Fingersticks have been stable and were DC'd 02/01/17 - 03/24 Blood sugar uncontrolled - continue Accu-Cheks and SSI with insulin NovoLog. - 03/27 Blood sugar severely elevated in the 200's. continue SQ Levemir 5 units SQ BID. continue SSI with insulin Novolog. - 03/28 sugars still very elevated above the 200s. continue Levemir subcutaneously to 10 units subcutaneously twice a day. Continue SSI with insulin NovoLog. Continue to monitor Accu-Cheks. Decubitus ulcer stage IV - Status post wide excision of sacral skin and biopsy of the cavity lining with debridement on 07/22/16. - Continue pressure relief measures including turning and positioning. Continue to monitor. - Patient's family has declined a diverting colostomy. Previous Wound culture growing Klebsiella and Enterococcus Faecalis. Previously on Augmentin. - Wound care last saw patient on 03/14/17, no new recommendations continue packing with Betadine moistened rolled Janis and covered with ABD pad and paper tape to secure. - Morphine 1 mg every 24 hours when necessary for dressing change -Reconsult wound care. Protein calorie malnutrition Gastroesophageal reflux disease Gastric ulcer, reflux esophagitis Diarrhea, negative for C. difficile. Improved - EGD on 07/30/16 showed gastric ulcers. Continue on Prevacid 30 mg Q12. - G/J tube clogged, IR consulted to evaluate. Replaced on 02/25/17 - TF held 03/16 due to emesis. No recurrence. TF resumed yesterday - patient tolerating. [facility] consulted to assist with rate/needs. Per their recommendations, Rec increasing TF'ing 10ml/hr Q 6hr, as tolerated, to goal rate 55ml/hr. Rec to discontinue the Ashish r/t pt has received Ashish for Rec dosing of 4-weeks to promote new tissue growth. - Continue bowel regimen with hold parameters, Lactinex and Imodium. Klebsiella/Pseudomonas/staph aureus HCAP PSAE UTI - S/p Cefepime. Monitor for signs of infections. - strep pneumonia and Legionella urinary Ag is negative - C-diff PCR negative on 01/13 - 01/09 BC : Staph Epi, Urine cx: Pseudomonas, Sputum cx: Pseudomonas, kleb, Staph. - Patient was pancultured on 01/19 (Blood, sputum, urine) NGTD in urine and blood. Sputum + for pseudomonas. Likely colonization. - CXR 04/03/17 shows small lung volumes, mild interstitial prominence without focal infiltrate. Sputum cx pending. Hyponatremia - resolved Anemia - sp transfusion of 1 unit of PRBC on 03/24. Hemoglobin responded appropriately from 6.8 and 8.1. - Stool Hemoccult negative. - Continue to monitor cbc. - 04/01 Hemoglobin decr at 7.0. Transfuse for hemoglobin < 7. - 04/02 Hemoglobin 6.9, transfused 2units PRBCs. Good response with f/u hgb 9.0 - small amount of active bleeding from PEG site and sacral wound as well as pinkish urine in bag. Follow CBC closely. DVT prophylaxis: SCDs Dealt with patient's nurse and patient's mother at the bedside. Discharge Planning Very poor prognosis. Problem Qualifiers (1) CVA (cerebral vascular accident): (2) DM (diabetes mellitus): Patsy Wilkes MD Apr 08, 2017 11:00
--- NOTE | 2017-04-08 12:12 | HHI.CCPN ---
Subjective Remarks/Hospital Course 59year-old male with past medical history of paroxysmal atrial fibrillation, hypertension, stage IIIa non-Hodgkin's lymphoma (s/p chemotherapy with Rituxan, [facility] 2014) presented to [facility] emergency department on 12/20 with altered mental status. When he woke up of 4 o'clock, the patient had some right facial droop associated with headaches. CT scan of the brain showed no focal or acute intracranial hemorrhage. However, there is an new area of decreased density in the left occipital lobe, suggestive of recent non hemorrhagic infarction and a decreased density in the previously noted right occipital lobe which had increased in size. The patient was recently admitted on December 06 with similar presentation and he had a right occipital juan jose hole brain biopsy done by Dr. Marin on December 13. The pathology results showed acute infarction without evidence of lymphoma. On this admission, the patient became obtunded, had sonorous respirations and can would not follow any commands. He was subsequently intubated by the emergency department physician. MRI of the brain was obtained which showed a new area of restricted diffusion within the left occipital lobe suggesting acute infarction. EKG on arrival showed A-fib with RVR at rate of 114 beats per minute. Pertinent ICU Course: 12/22/15: No events overnight. Sedated with Diprivan and intubated. For MRA brain , carotids and MRV brain today . 12/22: Patient remains intubated, off sedation. 12/23: No events overnight. Remains off sedation. Withdraws to pain. 12/24: Remains intubated, on no sedation. For repeat MRI brain today 12/25: Tolerated PSV for 4-5 hour yesterday. 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 12/26: Tolerating PSV. Opens eyes to voice, reportedly has been blinking to command but isn't doing so currently even when family encouraging him. 12/27: Continues to tolerate PSV. Follows commands via ocular movements. Weak withdraw LUE noxious stimuli. 12/28: Tolerating PSV 04/24. Family desires trach - warfarin placed on hold. MRI today per neurology. 12/29: Tolerating tube feeds. INR 2.2. Sputum culture with pansensitive klebsiella. 12/30: No neuro change. Continues to tolerate PSV 12/31: General surgery and GI planning trach / PEG tomorrow. Has low grade temp 100.2. 01/01: On full vent support. No significant neurologic changes. s/p bedside Trach and PEG. 01/02: Resuming PSV trials. Restart tube feeds. 01/03; On continuous trach collar since yesterday evening. No significant secretions. 01/04 No events overnight. Patient has been on TP's x 2 days currently on 28% FIO2. T: 100.5 last night. 01/09 Reconsult: Halicat was called as patient was found hypoxic with sats 70%, tachycardic HR 140's patient was subsequently transferred to [facility] and placed back on ventilator. Trach changed to size #6 XLT. Patient was found to have fever with T 102.1. CXR this afternoon showed mild chronic parenchymal changes. He was noted to have some bloody secretions from trach last 2 days. 01/10 Patient Patient is sedated with Diprivan and on ventilator via trach. Had T :102.5 at midnight. CTA chest last night showed no PE, CT brain no acute findings. 01/11 Patient remains on ventilator via trach and on Fentanyl infusion for sedation. T:99.8 01/12 Patient has been on CPAP 10/5 with 35% FIO2 overnight. Afebrile, tolerating tube feeds. 01/13 Patient remains on CPAP overnight. Afebrile. 01/14 Patient tolerated TP's all day yesterday placed on CPAP PS 5/PEEP:5 with 35 % FIO2 overnight. Afebrile. 01/15: Tolerated TP several hours yesterday, CPAP at night. No acute events overnight 01/16: Remained on TPs last 24 hours. No acute events reported last night. Discussed with ID yesterday because of clinical improvement continuing cefepime 01/17: Afebrile. On T piece 60 hours. J-tube currently plugged. Will ask IR if they can intervene. Tolerating tube feeding otherwise. Positive BM. 01/18: Afebrile. On TPs 84 hours. J-tube was unplugged yesterday. Recommended tube feeding through G-tube only. Medications per G-tube. Neurologically unchanged 01/19 - low-grade fevers overnight currently 100. On TPs greater than 100 hours. Tolerating tube feeding. Neurologically unchanged. 01/21/16 No events overbright. On TP's with 35-50% FIO2. Afebrile. 04/08/2017: reconsulted for tachypnea and possible sepsis. patient was seen and evaluated by Dr. Kenny overnight and felt to be stable to remain on the floor. Today, persistent tachypnea and tachycardia, although no desaturation or change in condition. Patient well-known to the supervisor publications service and has had no mental status change or neurologic improvements in over 1 year. Patient now with evidence of likely wide-spread metastatses to the liver along with multiple other active medical problems. The patient on my exam today appears unchanged over months. he is tachypneic and tachycardic, although not diaphoretic. fever curve is low and he is growing resistant PSAE in the sputum which is being covered. the patient is unable to provide any information due to his clinical condition. family continues to press for aggressive measures in this patient with no hope for meaningful recovery, both neurologic and oncologic. Objective Vital Signs Date Time Temp Pulse Resp B/P (MAP) Pulse Ox O2 Delivery O2 Flow Rate FiO2 04/08/17 09:01 96 T-piece 6.00 50 04/08/17 08:00 100.6 127 40 125/74 (91) Intake and Output 04/08/17 04/08/17 04/09/17 08:00 16:00 00:00 Intake Total 5984 ml 405 ml Balance 5984 ml 405 ml Result Diagram: 04/08/17 0538 04/08/17 0538 Other Results Laboratory Tests Test 04/07/17 17:51 Blood Gas Puncture Site RT RADIAL Blood Gas Patient Temperature 98.6 Blood Gas HCO3 25 mmol/L (22-26) Blood Gas Base Excess 1.4 mmol/L (-2-2) Blood Gas Oxygen Saturation 91 % (90-100) Arterial Blood pH 7.48 (7.380-7.420) Arterial Blood Partial Pressure CO2 33 mmHg (38-42) Arterial Blood Partial Pressure O2 71 mmHg (61-120) Arterial Blood Oxygen Content 13.0 Vol % (12.0-20.0) Arterial Blood Carboxyhemoglobin 2.0 % (0-4) Arterial Blood Methemoglobin 1.3 % (0-2) Blood Gas Hemoglobin 10.0 G/DL (12.0-16.0) Oxygen Delivery Device TRACH COLLAR Blood Gas Inspired Oxygen 35 % Imaging Last Impressions Chest X-Ray 01/20/17 0600 Signed Impressions: Service Date/Time: Friday, January 20, 2017 04:22 - CONCLUSION: 1. Bibasilar patchy densities, unchanged. 2. Tracheostomy tube unchanged. Mikie Vargas MD Head CT 01/09/17 0000 Signed Impressions: Service Date/Time: December 17:43 - CONCLUSION: 1. No acute hemorrhage or mass effect. 2. 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 3. Atrophy. Gerald Mukherjee MD CT Angiography 01/09/17 0000 Signed Impressions: Service Date/Time: December 17:49 - CONCLUSION: 1. No evidence of pulmonary emboli. 2. Patchy consolidation in both posterior lower lobes right greater than left. This could represent pneumonia. 3. 2 small noncalcified pulmonary nodules which are nonspecific finding. Short-term CT followup is recommended beginning in 6 months with a noncontrast outpatient CT. Gerald Mukherjee MD Tube Change 12/31/16 0000 Signed Impressions: Service Date/Time: Saturday, December 31, 2016 16:35 - CONCLUSION: Uncomplicated gastrojejunostomy tube exchange as above. Moises Ramírez MD Tube Check 12/04/16 0000 Signed Impressions: Service Date/Time: Sunday, December 04, 2016 17:58 - CONCLUSION: Uncomplicated tube injection as above. the tube is in good position and functions normally. Moises Ramírez MD Abdomen X-Ray 08/31/16 0000 Signed Impressions: Service Date/Time: Wednesday, August 31, 2016 16:36 - CONCLUSION: 1. No acute findings. Mild constipation. Durga Dotson MD Abdomen/Pelvis CT 04/12/16 0000 Signed Impressions: Service Date/Time: Tuesday, April 12, 2016 20:52 - CONCLUSION: 1. 6.4 cm necrotic mass or abscess in the soft tissues posteriorly just below the sacrum associated with some bony destructive change of the lower most sacrum and coccyx with inflammatory changes extending into the ischiorectal fossa and into the presacral retroperitoneum predominantly on the left side. There is associated fairly marked mural thickening of the anal verge and rectum. 2. There is gastrostomy and Arevalo catheter present. Stable abdominal aortic aneurysm. Durga Dotson MD Head Magnetic Resonance Angiography 03/05/16 0000 Signed Impressions: Service Date/Time: Saturday, March 05, 2016 09:26 - CONCLUSION: Persistent high-grade subtotal occlusive stenotic lesions in the distal right vertebral artery and proximal basilar artery with significant improvement in flow and recanalization following initial presentation of thrombosis. Stable interstitial circulation without significant stenosis. Ernesto Kulkarni MD Brain MRI 03/05/16 0000 Signed Impressions: Service Date/Time: Saturday, March 05, 2016 09:26 - CONCLUSION: Evolving brainstem and bilateral occipital lobe infarcts with evidence of subacute hemorrhagic products. There is decreasing restricted diffusion and increasing loss of volume characteristic of a subacute to chronic infarct. No evidence of acute infarct, acute hemorrhage mass or edema. Ernesto Kulkarni MD Neck Magnetic Resonance Angiography 12/22/15 1445 Signed Impressions: Service Date/Time: Tuesday, December 22, 2015 09:22 - CONCLUSION: Variant origin of the left vertebral artery from the aortic arch. No evidence of carotid stenosis. Glen Zamora MD Head/Brain Mag Res Venography 12/22/15 0000 Signed Impressions: Service Date/Time: Tuesday, December 22, 2015 09:22 - CONCLUSION: Normal MRV. Jonel Jones Jr., MD Objective Remarks GENERAL: middle-aged cachectic male, currently resting in bed on TP via trach in no acute distress SKIN: Warm and dry. No rash. Decubitus sacral ulcer HEAD: Normocephalic. EYES: No scleral icterus. No injection or drainage. NECK: trachea midline. No JVD. Tracheostomy CARDIOVASCULAR: Tachycardic, RR. RESPIRATORY: unlabored. equal chest rise. GASTROINTESTINAL: Abdomen soft, non-tender, nondistended. GJ tube is clean dry and intact. MUSCULOSKELETAL: No significant peripheral edema. Neuro: On no sedation. Eyes are open, do not track. Withdraws lower extremities to pain only Procedures 07/22/2016 Wide excision of sacral skin wound, biopsy of the cavity lining and debridement. PEG removal and Gj tube placement 07/29/16 VAC changes- M-W-F 10/23/16, 11/18, 12/31- GJ tube replacement 01/02/16 PEG placement 01/02/16 tracheostomy 02/25/17 PEG replacement 03/03/17 Cystoscopy and palliative transurethral resection of bladder tumor greater than 5cm originating from the right bladder wall Date of Insertion: Mar 03, 2017 A/P Assessment and Plan Assessment: 61yM with non-Hodgkins lymphoma, devastating CVA with persistent vegetative state, bladder cancer, and likely widely metastatic disease to the liver, chronic respiratory failure, acute on chronic renal insufficiency who presents to the ICU for concerns over possible sepsis secondary to presumably pseudomonas health-care associated pneumonia. Will check lactate and procalcitonin- this could very well be central fever/tachycardia secondary to his neuro insult and not related to his sepsis. will attempt low-dose propranolol to see if this could possibly help with tachycardia from central mediation. patient does not appear clinically declining, not diaphoretic, with baseline wbc count. other cultures have been negative and PSAE could in fact be colonization from his long hospital stay. Overall, patient has poor prognosis, and will not survive this hospitalization. If the family needs a tissue diagnosis to help with decision making, then CT guided liver biopsy is appropriate. However, at the given time, not a candidate for any curative type therapies directed at the liver lesions. 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 Pulmonary: Chronic Respiratory failure Right upper lobe/right middle lobe pulmonary nodules - outpatient CT scan without contrast in 6 months to follow-up Continue with oxygen keep sat >90%. Duo nebs every 6 hours Pulm toilet, [facility]m is following- Dr. Taylor - does not require mechanical ventilation currently. CV: History of paroxysmal atrial fibrillation currently in sinus tachycardia Hypertension Dyslipidemia Monitor HR and BP keep MAP>65mmHg. O Continue ASA 325mg daily, Cardizem 30mg QID will try small dose of propranolol 10mg po q8h Renal//FEN: Acute kidney injury on chronic renal insufficiency Monitor renal function, Accurate I/O's electrolytes replacement if indicated keep ivf as ordered, mivf @ 65 cc/hr. GI: Mild protein calorie malnutrition Gastroesophageal reflux disease On Protonix Tube feeds J-tube followed by GI ID: Klebsiella/Pseudomonas/staph aureus HCAP possible sepsis Continue abx per ID send procalcitonin Heme: Microcytic anemia Stage III a non-Hodgkin's lymphoma Bladder cancer Management per hematology oncology Endo: History of diabetes mellitus On SSI (low scale) for glycemic control Stage IV decubitus ulcers Dressing changes daily Management per wound care GI prophylaxis with Protonix 40mg Q12 DVT prophylaxis with SCD and Heparin SQ Dispo: remain in the ICU. will monitor clinically here and transfer back when more stable. Lyndon Navarro MD Apr 08, 2017 12:12
--- NOTE | 2017-04-08 16:02 | HHI.IDPN ---
Subjective Subjective Remarks persistent low grade fever: events noted: prt was transferred to ICU 08/22 tachycardia HAd a fever of 101 He is more stable today though having some tachycardia into 130s low grade fever Antibiotics zosyn fluconazole Lines Peripheral IV Past Medical History Hypertension. Stage III non-Hodgkin's lymphoma. Diabetes mellitus. Paroxysmal atrial fibrillation. Brain biopsy in Nov, 2015. History of left arm surgery. 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 Vital Signs Date Time Temp Pulse Resp B/P (MAP) Pulse Ox O2 Delivery O2 Flow Rate FiO2 04/08/17 14:12 98 T-Piece 28 04/08/17 12:00 100.6 141 24 128/76 (93) 97 04/08/17 11:45 94 50 04/08/17 09:01 96 T-piece 6.00 50 04/08/17 09:00 96 T-piece 6.00 50 04/08/17 08:00 100.6 127 40 125/74 (91) 97 04/08/17 05:02 95 T-piece 5.00 50 04/08/17 04:00 101.3 134 44 143/85 (104) 96 04/08/17 00:00 99.0 118 26 136/77 (96) 98 04/07/17 22:10 T-Piece 5.00 04/07/17 20:00 101.2 131 24 133/78 (96) 97 04/08/17 04/08/17 04/09/17 15:00 23:00 07:00 Intake Total 405 ml Output Total 550 ml Balance -145 ml Intake Oral 0 ml Packed Cells 400 ml Blood Product IV Normal Saline Flush 5 ml Output Urine Total 550 ml Bladder Scan Volume Amount 999 ml . Laboratory Tests Test 04/07/17 06:55 04/08/17 05:38 White Blood Count 4.2 TH/MM3 4.7 TH/MM3 Red Blood Count 3.23 MIL/MM3 3.06 MIL/MM3 Hemoglobin 8.5 GM/DL 7.9 GM/DL Hematocrit 24.4 % 23.5 % Mean Corpuscular Volume 75.4 FL 76.6 FL Mean Corpuscular Hemoglobin 26.2 PG 26.0 PG Mean Corpuscular Hemoglobin Concent 34.8 % 33.9 % Red Cell Distribution Width 23.0 % 23.3 % Platelet Count 77 TH/MM3 81 TH/MM3 Mean Platelet Volume 8.4 FL 8.6 FL Laboratory Tests Test 04/07/17 06:55 04/08/17 05:38 04/08/17 13:19 Blood Urea Nitrogen 27 MG/DL 28 MG/DL Creatinine 1.18 MG/DL 1.19 MG/DL Random Glucose 200 MG/DL 201 MG/DL Calcium Level 8.7 MG/DL 8.8 MG/DL Sodium Level 141 MEQ/L 140 MEQ/L Potassium Level 3.8 MEQ/L 4.8 MEQ/L Chloride Level 107 MEQ/L 108 MEQ/L Carbon Dioxide Level 24.7 MEQ/L 25.8 MEQ/L Anion Gap 9 MEQ/L 6 MEQ/L Estimat Glomerular Filtration Rate 63 ML/MIN 62 ML/MIN Lactic Acid Level 1.1 mmol/L Procalcitonin 0.71 ng/mL Microbiology Date/Time Source Procedure Growth Status 04/06/17 00:44 Blood Peripheral Aerobic Blood Culture - Preliminary NO GROWTH IN 2 DAYS Resulted 04/06/17 00:44 Blood Peripheral Anaerobic Blood Culture - Preliminary NO GROWTH IN 2 DAYS Resulted 04/06/17 00:39 Blood Peripheral Aerobic Blood Culture - Preliminary NO GROWTH IN 2 DAYS Resulted 04/06/17 00:39 Blood Peripheral Anaerobic Blood Culture - Preliminary NO GROWTH IN 2 DAYS Resulted Imaging Last Impressions Chest X-Ray 04/07/17 0000 Signed Impressions: Service Date/Time: Friday, April 07, 2017 17:37 - CONCLUSION: 1. Persistent hypoinflation with mild interstitial prominence. 2. Bibasilar atelectatic changes. No confluent infiltrate or effusion. Bobby Gray MD Abdomen MRI 04/07/17 0000 Signed Impressions: Service Date/Time: Friday, April 07, 2017 15:31 - CONCLUSION: 1. Hepatomegaly with innumerable lesions scattered throughout both lobes measuring up to 1.5 cm. The appearance is highly suspicious for metastatic disease. Infectious process is also included in the differential diagnosis but felt less likely. 2. Nonacute findings include splenomegaly and a fusiform infrarenal aortic aneurysm measuring up to 3.2 cm. Glen Gordon MD Liver Ultrasound 04/02/17 0000 Signed Impressions: Service Date/Time: Sunday, April 02, 2017 18:36 - CONCLUSION: 1. Small hypoechoic lesion in the right hepatic lobe that is not convincing for a cyst or other benign structure. A small metastatic lesion would be in the differential. I don't clearly see it on the prior CTs. Abdomen MRI with and without contrast may be helpful. 2. Hepatomegaly. 3. Sludge and small stones in the gallbladder. No evidence of cholecystitis or biliary obstruction. Glen Moore MD Brain MRI 03/14/17 0000 Signed Impressions: Service Date/Time: Tuesday, March 14, 2017 12:41 - CONCLUSION: The signal abnormality and enhancement within the bilateral occipital lobes and colin have decreased since the prior examinations. No new abnormality is identified. There is no new enhancing area or signs of a recent ischemia. Glen Gordon MD Chest CT 03/10/17 0000 Signed Impressions: Service Date/Time: Friday, March 10, 2017 21:00 - CONCLUSION: 1. Periaortic soft tissue along the proximal descending thoracic aorta not previously seen. This represents either lymphomatous involvement or adjacent consolidated airspace disease. 2. Mild bilateral airspace disease 3. No evidence of significant lymphadenopathy involving the mediastinum, hilar regions, axillas or supraclavicular lore chain. 4. Tracheostomy tube in place. Ernesto Kulkarni MD Abdomen/Pelvis CT 02/27/17 0000 Signed Impressions: Service Date/Time: February 02:24 - CONCLUSION: 1. Abdominal aortic aneurysm. 2. Bladder mass is noted on the right posteriorly with apparent extravesical extension and clot formation. 3. Left renal cyst. 4. Left lower lobe atelectasis. 5. Large sacral decubitus ulcer with bony destruction and sclerosis of the sacrum mid to left lateral portion in the region of S3 and inferiorly which would suggest chronic osteomyelitis in the appropriate clinical setting. Rajan Granados MD Soft Tissue Ultrasound 02/26/17 0000 Signed Impressions: Service Date/Time: Sunday, February 26, 2017 12:52 - CONCLUSION: 1. Just inferior to the G-tube in the left abdomen, there is a superficial 3.8 x 2.9 0.9 cm complex fluid collection in the subcutaneous tissues. 2. Findings are nonspecific. This could represent a small seroma or abscess. Would consider CT scan of the abdomen without contrast for further evaluation to determine if there is intraperitoneal extension. Bobby Gray MD Gastrostomy Tube Placement 02/25/17 0000 Signed Impressions: Service Date/Time: Saturday, February 25, 2017 14:19 - CONCLUSION: Uncomplicated exchange of gastroenteric feeding tube for gastrostomy tube as above. Positioning confirmed. The tube can be used immediately. Glen Zamora MD Tube Change 02/14/17 0000 Signed Impressions: Service Date/Time: Tuesday, February 14, 2017 00:00 - CONCLUSION: Uncomplicated gastrojejunostomy tube exchange as above. Scott Griffin MD Head CT 01/09/17 0000 Signed Impressions: Service Date/Time: December 17:43 - CONCLUSION: 1. No acute hemorrhage or mass effect. 2. 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 3. Atrophy. Gerald Mukherjee MD CT Angiography 01/09/17 0000 Signed Impressions: Service Date/Time: December 17:49 - CONCLUSION: 1. No evidence of pulmonary emboli. 2. Patchy consolidation in both posterior lower lobes right greater than left. This could represent pneumonia. 3. 2 small noncalcified pulmonary nodules which are nonspecific finding. Short-term CT followup is recommended beginning in 6 months with a noncontrast outpatient CT. Gerald Mukherjee MD Tube Check 12/04/16 0000 Signed Impressions: Service Date/Time: Sunday, December 04, 2016 17:58 - CONCLUSION: Uncomplicated tube injection as above. the tube is in good position and functions normally. Moises Ramírez MD Abdomen X-Ray 08/31/16 0000 Signed Impressions: Service Date/Time: Wednesday, August 31, 2016 16:36 - CONCLUSION: 1. No acute findings. Mild constipation. Durga Dotson MD Head Magnetic Resonance Angiography 03/05/16 0000 Signed Impressions: Service Date/Time: Saturday, March 05, 2016 09:26 - CONCLUSION: Persistent high-grade subtotal occlusive stenotic lesions in the distal right vertebral artery and proximal basilar artery with significant improvement in flow and recanalization following initial presentation of thrombosis. Stable interstitial circulation without significant stenosis. Ernesto Kulkarni MD Neck Magnetic Resonance Angiography 12/22/15 1445 Signed Impressions: Service Date/Time: Tuesday, December 22, 2015 09:22 - CONCLUSION: Variant origin of the left vertebral artery from the aortic arch. No evidence of carotid stenosis. Glen Zamora MD Head/Brain Mag Res Venography 12/22/15 0000 Signed Impressions: Service Date/Time: Tuesday, December 22, 2015 09:22 - CONCLUSION: Normal MRV. Jonel Jones Jr., MD Physical Exam GENERAL: eyes closed , NAD SKIN: Warm to touch and dry. No generalized rash HEENT: Mckay conjunctiva. . No scleral icterus. CARDIOVASCULAR: Regular rate and rhythm. No murmur or rub. RESPIRATORY: clear to auscultation ABDOMEN: Soft, obese, grimacing to palpation, + distended. PEG site with persistent area of macerated scin, no purulence , mucoid drainage is present BS (+) normoactive EXTREMITIES: No clubbing, cyanosis. MIld pedal edema. NEUROLOGICAL: resting , not following. Eyes opened, tracks MS is at b/l PSYCH: Unable to assess ; lopez in place, urine looks clear , light yellow Assessment & Plan Remarks IMPRESSION Lock in sd sp stroke Hx NHL Minimal perihilar infiltrate is present persistent PSAE in sputum stage IV decub with no e/o infx Superficial appaering PEG anne marie infection, sp treatment - not a[pearing as infx, drainage more likely slighlty laking tube feeds Persistent fever Fever ? metastitic liver disease UTI, PSAE Diarrhea, abx assciated, C.diff negative Metastatic liver dzz vs infx: bx postponed x 5 days 2/2 anticoagulation RECOMMENDATION dc zosyn ( completed 2 weeks) cont fluconazole x [address] bx of liver lesions fu WBC, temps fu blood clx dw Dr Navarro dw RN Violetta Alvarez MD Apr 08, 2017 16:02
--- NOTE | 2017-04-08 16:13 | HHI.GIFU ---
Subjective Remarks Tx to unit for tachycardia, tachypnea. Tolerating tube feeding. (Cielo Sorensen) Objective Vitals I&O Vital Signs Date Time Temp Pulse Resp B/P (MAP) Pulse Ox O2 Delivery O2 Flow Rate FiO2 04/08/17 14:12 98 T-Piece 28 04/08/17 12:00 100.6 141 24 128/76 (93) 97 04/08/17 11:45 94 50 04/08/17 09:01 96 T-piece 6.00 50 04/08/17 09:00 96 T-piece 6.00 50 04/08/17 08:00 100.6 127 40 125/74 (91) 97 04/08/17 05:02 95 T-piece 5.00 50 04/08/17 04:00 101.3 134 44 143/85 (104) 96 04/08/17 00:00 99.0 118 26 136/77 (96) 98 04/07/17 22:10 T-Piece 5.00 04/07/17 20:00 101.2 131 24 133/78 (96) 97 I/O 04/07/17 04/07/17 04/07/17 04/08/17 04/08/17 04/08/17 07:00 15:00 23:00 07:00 15:00 23:00 Intake Total 817 ml 0 ml 3178 ml 5984 ml 405 ml Output Total 1050 ml 1050.0 ml 550 ml Balance -233 ml 0 ml 2128.0 ml 5984 ml -145 ml Intake Oral 0 ml 0 ml 0 ml 0 ml IV Total 100 ml 2548 ml 5453 ml Tube Feeding 657 ml 630 ml 531 ml Packed Cells 400 ml Blood Product IV Normal Saline Flush 5 ml Tube Irrigant 60 ml Output Urine Total 1050 ml 1000 ml 550 ml Tube Feeding Residual Discard 50.0 ml Bladder Scan Volume Amount 999 ml # Bowel Movements 1 0 Laboratory Laboratory Tests Test 04/07/17 17:51 04/08/17 05:38 04/08/17 13:19 Blood Gas Puncture Site RT RADIAL Blood Gas Patient Temperature 98.6 Blood Gas HCO3 25 Blood Gas Base Excess 1.4 Blood Gas Oxygen Saturation 91 Arterial Blood pH 7.48 Arterial Blood Partial Pressure CO2 33 Arterial Blood Partial Pressure O2 71 Arterial Blood Oxygen Content 13.0 Arterial Blood Carboxyhemoglobin 2.0 Arterial Blood Methemoglobin 1.3 Blood Gas Hemoglobin 10.0 Oxygen Delivery Device TRACH COLLAR Blood Gas Inspired Oxygen 35 White Blood Count 4.7 Red Blood Count 3.06 Hemoglobin 7.9 Hematocrit 23.5 Mean Corpuscular Volume 76.6 Mean Corpuscular Hemoglobin 26.0 Mean Corpuscular Hemoglobin Concent 33.9 Red Cell Distribution Width 23.3 Platelet Count 81 Mean Platelet Volume 8.6 Prothrombin Time 18.2 Prothromb Time International Ratio 1.6 Blood Urea Nitrogen 28 Creatinine 1.19 Random Glucose 201 Calcium Level 8.8 Sodium Level 140 Potassium Level 4.8 Chloride Level 108 Carbon Dioxide Level 25.8 Anion Gap 6 Estimat Glomerular Filtration Rate 62 Lactic Acid Level 1.1 Procalcitonin 0.71 Date/Time Source Procedure Growth Status 04/06/17 00:44 Blood Peripheral Aerobic Blood Culture - Preliminary NO GROWTH IN 2 DAYS Resulted 04/06/17 00:44 Blood Peripheral Anaerobic Blood Culture - Preliminary NO GROWTH IN 2 DAYS Resulted 03/24/17 00:00 Stool Stool Stool Occult Blood (AISHA) - Final HEMOCCULT NEGATIVE Complete 04/04/17 02:40 Sputum Endotracheal Gram Stain - Final Complete 04/04/17 02:40 Sputum Culture - Final Pseudomonas Aeruginosa Complete 04/03/17 15:25 Urine Catheterized Urine Urine Culture - Final Complete 04/04/17 18:40 Wound Skin Gram Stain - Final Complete 04/04/17 18:40 Wound Culture - Final Sharri Tropicalis Group D Enterococcus Complete Imaging Last Impressions Chest X-Ray 04/07/17 0000 Signed Impressions: Service Date/Time: Friday, April 07, 2017 17:37 - CONCLUSION: 1. Persistent hypoinflation with mild interstitial prominence. 2. Bibasilar atelectatic changes. No confluent infiltrate or effusion. Bobby Gray MD Abdomen MRI 04/07/17 0000 Signed Impressions: Service Date/Time: Friday, April 07, 2017 15:31 - CONCLUSION: 1. Hepatomegaly with innumerable lesions scattered throughout both lobes measuring up to 1.5 cm. The appearance is highly suspicious for metastatic disease. Infectious process is also included in the differential diagnosis but felt less likely. 2. Nonacute findings include splenomegaly and a fusiform infrarenal aortic aneurysm measuring up to 3.2 cm. Glen Gordon MD Liver Ultrasound 04/02/17 0000 Signed Impressions: Service Date/Time: Sunday, April 02, 2017 18:36 - CONCLUSION: 1. Small hypoechoic lesion in the right hepatic lobe that is not convincing for a cyst or other benign structure. A small metastatic lesion would be in the differential. I don't clearly see it on the prior CTs. Abdomen MRI with and without contrast may be helpful. 2. Hepatomegaly. 3. Sludge and small stones in the gallbladder. No evidence of cholecystitis or biliary obstruction. Glen Moore MD Brain MRI 03/14/17 0000 Signed Impressions: Service Date/Time: Tuesday, March 14, 2017 12:41 - CONCLUSION: The signal abnormality and enhancement within the bilateral occipital lobes and colin have decreased since the prior examinations. No new abnormality is identified. There is no new enhancing area or signs of a recent ischemia. Glen Gordon MD Chest CT 03/10/17 0000 Signed Impressions: Service Date/Time: Friday, March 10, 2017 21:00 - CONCLUSION: 1. Periaortic soft tissue along the proximal descending thoracic aorta not previously seen. This represents either lymphomatous involvement or adjacent consolidated airspace disease. 2. Mild bilateral airspace disease 3. No evidence of significant lymphadenopathy involving the mediastinum, hilar regions, axillas or supraclavicular lore chain. 4. Tracheostomy tube in place. Ernesto Kulkarni MD Abdomen/Pelvis CT 02/27/17 0000 Signed Impressions: Service Date/Time: February 02:24 - CONCLUSION: 1. Abdominal aortic aneurysm. 2. Bladder mass is noted on the right posteriorly with apparent extravesical extension and clot formation. 3. Left renal cyst. 4. Left lower lobe atelectasis. 5. Large sacral decubitus ulcer with bony destruction and sclerosis of the sacrum mid to left lateral portion in the region of S3 and inferiorly which would suggest chronic osteomyelitis in the appropriate clinical setting. Rajan Granados MD Soft Tissue Ultrasound 02/26/17 0000 Signed Impressions: Service Date/Time: Sunday, February 26, 2017 12:52 - CONCLUSION: 1. Just inferior to the G-tube in the left abdomen, there is a superficial 3.8 x 2.9 0.9 cm complex fluid collection in the subcutaneous tissues. 2. Findings are nonspecific. This could represent a small seroma or abscess. Would consider CT scan of the abdomen without contrast for further evaluation to determine if there is intraperitoneal extension. Bobby Gray MD Gastrostomy Tube Placement 02/25/17 0000 Signed Impressions: Service Date/Time: Saturday, February 25, 2017 14:19 - CONCLUSION: Uncomplicated exchange of gastroenteric feeding tube for gastrostomy tube as above. Positioning confirmed. The tube can be used immediately. Glen Zamora MD Tube Change 02/14/17 0000 Signed Impressions: Service Date/Time: Tuesday, February 14, 2017 00:00 - CONCLUSION: Uncomplicated gastrojejunostomy tube exchange as above. Scott Griffin MD Head CT 01/09/17 0000 Signed Impressions: Service Date/Time: December 17:43 - CONCLUSION: 1. No acute hemorrhage or mass effect. 2. 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 3. Atrophy. Gerald Mukherjee MD CT Angiography 01/09/17 0000 Signed Impressions: Service Date/Time: December 17:49 - CONCLUSION: 1. No evidence of pulmonary emboli. 2. Patchy consolidation in both posterior lower lobes right greater than left. This could represent pneumonia. 3. 2 small noncalcified pulmonary nodules which are nonspecific finding. Short-term CT followup is recommended beginning in 6 months with a noncontrast outpatient CT. Gerald Mukherjee MD Tube Check 12/04/16 0000 Signed Impressions: Service Date/Time: Sunday, December 04, 2016 17:58 - CONCLUSION: Uncomplicated tube injection as above. the tube is in good position and functions normally. Moises Ramírez MD Abdomen X-Ray 08/31/16 0000 Signed Impressions: Service Date/Time: Wednesday, August 31, 2016 16:36 - CONCLUSION: 1. No acute findings. Mild constipation. Durga Dotson MD Head Magnetic Resonance Angiography 03/05/16 0000 Signed Impressions: Service Date/Time: Saturday, March 05, 2016 09:26 - CONCLUSION: Persistent high-grade subtotal occlusive stenotic lesions in the distal right vertebral artery and proximal basilar artery with significant improvement in flow and recanalization following initial presentation of thrombosis. Stable interstitial circulation without significant stenosis. Ernesto Kulkarni MD Neck Magnetic Resonance Angiography 12/22/15 1445 Signed Impressions: Service Date/Time: Tuesday, December 22, 2015 09:22 - CONCLUSION: Variant origin of the left vertebral artery from the aortic arch. No evidence of carotid stenosis. Glen Zamora MD Head/Brain Mag Res Venography 12/22/15 0000 Signed Impressions: Service Date/Time: Tuesday, December 22, 2015 09:22 - CONCLUSION: Normal MRV. Jonel Jones Jr., MD Physical Exam HEENT: Normocephalic; atraumatic; no jaundice. CHEST: Scattered rhonchi. Tachypneic, Tracheostomy-TBar CARDIAC: RRR. ABDOMEN: Soft, round, nondistended, nontender; no hepatosplenomegaly; bowel sounds are present in all four quadrants. G tube site with minimal erythema, no edema, small amount of drainage. EXTREMITIES: Generalized edema. [employer]: Resting with eyes open, does not follow commands (Cielo Sorensen) Assessment and Plan Plan ASSESSMENT: - Reconsulted for PEG tube site infection. Wd. Cx with Sharri Tropacalis, Gr D enterococcus. Zosyn. Diflucan. ID following. Will leave tube in place for now and continue abx and see how he responds to abx, unless ID recommends it being removed. - Dysphagia. Pt had multiple clogged G/J tubes requiring frequent exchanges. S /P conversion of G/J tube exchanged to G tube (02/27/17) by IR. G-tube patent. - Gastric ulcer. RESOLVED. EGD (07/30/16)----> Gastric ulcer/Reflux Esophagitis/ Residual gastric juices. He has not had repeat EGD. S/P Rpt. EGD (02/26/17)---- > normal upper endoscopy. G tube in place. HH 8.5/24.4. - Multiple liver masses. MRI (04/07/17)---> Hepatomegaly with innumerable lesions scattered throughout both lobes measuring up to 1.5 cm. The appearance is highly suspicious for metastatic disease. Infectious process is also included in the differential diagnosis, but felt less likely. Nonacute findings include splenomegaly and a fusiform infrarenal aortic aneurysm measuring up to 3.[address] Abdomen and pelvis (02/27/17)---> abdominal aortic aneurysm, bladder mass is noted on the right posteriorly with apparent extravesical extension and clot formation. left renal cyst, left lower lobe atelectasis, large sacral decubitus ulcer with bony destruction and sclerosis of the sacrum mid to left lateral portion in the region of S3 and inferiorly which would suggest chronic osteomyelitis in the appropriate clinical setting. He did have a cystoscopy and palliative TURB (03/03/17) with Dr. Sewell. Pathology small cell carcinoma. Metastatic dz, possibly related to bladder mass. Recommend oncology evaluation and will defer further workup to them. - Chronic resp. failure. S/P trach. T Bar. per attending. - Tachycardia, pt was transferred to unit for tachycardia, now improved. 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 PLAN: - TF as tolerated - Cont abx as recommended by ID - Monitor labs - Supportive care - Pt with suspected liver mets, possibly related to bladder mass. Defer further evaluation/tx to oncology - Further recommendations to follow based on results of above - Pt seen and examined by Dr. Gibbons and myself and this note is written on his behalf (Cielo Sorensen) Physician Comments Patient seen and examined Agree with above Continue with current supportive care Monitor labs Not much to add from a GI perspective Very poor prognosis and would highly recommend hospice at this point We will sign off (Sampson Gibbons MD) Cielo Sorensen Apr 08, 2017 16:13 Sampson Gibbons MD Apr 08, 2017 22:56
[2017-04-08] MEDS: PARoxetine HCL SUSP 20 MG/10 ML UDC PEG SCH (17:19)
[2017-04-08] MEDS: ACETAMINOPHEN/CODEINE ELIX 120 MG/12 MG/5 ML CUP PEG PRN (17:39)
--- NOTE | 2017-04-08 18:36 | PD.WCN.NOT ---
Wound Consult Additional Information: Attempted to follow up with patient for stage 4 pressure injury today with Doctor Phyllis. Patient unstable with high pulse rate and respiratory rate. Patient transferred to [facility]. Will attempt see patient when stable. Carmen Hsieh [facility] Apr 08, 2017 18:36
[2017-04-08] MEDS: levETIRAcetam 500 MG/5 ML UDC PEG SCH (21:14)
[2017-04-08] MEDS: HYOSCYAMINE 0.125 MG TAB PEG SCH (21:15)
[2017-04-08] MEDS: LANSOPRAZOLE SOLUTAB 30 MG TAB PEG SCH (21:15)
[2017-04-09] VITALS (13 sets, daily range): BP systolic 115–125; BP diastolic 69–74; PULSE 96–120; RESP 18–42; TEMP 98.6–101; O2SAT 93–100
[2017-04-09] MEDS: DILTIAZEM HCL 30 MG TAB PEG SCH ×4 (00:30→17:45)
[2017-04-09 05:18] LABS: HEMATOCRIT 23.7 % (39.0-51.0); MEAN CELL VOLUME 76.8 FL (80.0-100.0); MEAN CORPUSCULAR HEMOGLOBIN 25.9 PG (27.0-34.0); MEAN CORPUSCULAR HGB CONC 33.7 % (32.0-36.0); PLATELET COUNT 78 TH/MM3 (150-450); RED BLOOD COUNT 3.08 MIL/MM3 (4.50-5.90); RED CELL DISTRIBUTION WIDTH 22.7 % (11.6-17.2); WHITE BLOOD COUNT 6.5 TH/MM3 (4.0-11.0)
[2017-04-09] MEDS: SODIUM CHLOR 0.9% 1000 ML INJ 1,000 ML IV SCH (05:20)
[2017-04-09] MEDS: HYOSCYAMINE 0.125 MG TAB PEG SCH ×3 (05:21→22:00)
[2017-04-09] MEDS: ACETAMINOPHEN/CODEINE ELIX 120 MG/12 MG/5 ML CUP PEG PRN (05:28)
[2017-04-09 05:34] LABS: REVIEW FLAG FINAL
[2017-04-09 05:39] LABS: BICARBONATE 25.4 MEQ/L (21.0-32.0); POTASSIUM 3.6 MEQ/L (3.5-5.1)
[2017-04-09 06:00] LABS: INTERNATIONAL NORMALIZED RATIO 1.9 RATIO; PROTHROMBIN TIME - PATIENT 21.4 SEC (9.8-11.6)
--- NOTE | 2017-04-09 06:49 | HHI.CCPN ---
Subjective Remarks/Hospital Course 59year-old male with past medical history of paroxysmal atrial fibrillation, hypertension, stage IIIa non-Hodgkin's lymphoma (s/p chemotherapy with Rituxan, [facility] 2014) presented to [facility] emergency department on 12/20 with altered mental status. When he woke up of 4 o'clock, the patient had some right facial droop associated with headaches. CT scan of the brain showed no focal or acute intracranial hemorrhage. However, there is an new area of decreased density in the left occipital lobe, suggestive of recent non hemorrhagic infarction and a decreased density in the previously noted right occipital lobe which had increased in size. The patient was recently admitted on December 06 with similar presentation and he had a right occipital juan jose hole brain biopsy done by Dr. Marin on December 13. The pathology results showed acute infarction without evidence of lymphoma. On this admission, the patient became obtunded, had sonorous respirations and can would not follow any commands. He was subsequently intubated by the emergency department physician. MRI of the brain was obtained which showed a new area of restricted diffusion within the left occipital lobe suggesting acute infarction. EKG on arrival showed A-fib with RVR at rate of 114 beats per minute. Pertinent ICU Course: 12/22/15: No events overnight. Sedated with Diprivan and intubated. For MRA brain , carotids and MRV brain today . 12/22: Patient remains intubated, off sedation. 12/23: No events overnight. Remains off sedation. Withdraws to pain. 12/24: Remains intubated, on no sedation. For repeat MRI brain today 12/25: Tolerated PSV for 4-5 hour yesterday. 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 12/26: Tolerating PSV. Opens eyes to voice, reportedly has been blinking to command but isn't doing so currently even when family encouraging him. 12/27: Continues to tolerate PSV. Follows commands via ocular movements. Weak withdraw LUE noxious stimuli. 12/28: Tolerating PSV 04/24. Family desires trach - warfarin placed on hold. MRI today per neurology. 12/29: Tolerating tube feeds. INR 2.2. Sputum culture with pansensitive klebsiella. 12/30: No neuro change. Continues to tolerate PSV 12/31: General surgery and GI planning trach / PEG tomorrow. Has low grade temp 100.2. 01/01: On full vent support. No significant neurologic changes. s/p bedside Trach and PEG. 01/02: Resuming PSV trials. Restart tube feeds. 01/03; On continuous trach collar since yesterday evening. No significant secretions. 01/04 No events overnight. Patient has been on TP's x 2 days currently on 28% FIO2. T: 100.5 last night. 01/09 Reconsult: Halicat was called as patient was found hypoxic with sats 70%, tachycardic HR 140's patient was subsequently transferred to [facility] and placed back on ventilator. Trach changed to size #6 XLT. Patient was found to have fever with T 102.1. CXR this afternoon showed mild chronic parenchymal changes. He was noted to have some bloody secretions from trach last 2 days. 01/10 Patient Patient is sedated with Diprivan and on ventilator via trach. Had T :102.5 at midnight. CTA chest last night showed no PE, CT brain no acute findings. 01/11 Patient remains on ventilator via trach and on Fentanyl infusion for sedation. T:99.8 01/12 Patient has been on CPAP 10/5 with 35% FIO2 overnight. Afebrile, tolerating tube feeds. 01/13 Patient remains on CPAP overnight. Afebrile. 01/14 Patient tolerated TP's all day yesterday placed on CPAP PS 5/PEEP:5 with 35 % FIO2 overnight. Afebrile. 01/15: Tolerated TP several hours yesterday, CPAP at night. No acute events overnight 01/16: Remained on TPs last 24 hours. No acute events reported last night. Discussed with ID yesterday because of clinical improvement continuing cefepime 01/17: Afebrile. On T piece 60 hours. J-tube currently plugged. Will ask IR if they can intervene. Tolerating tube feeding otherwise. Positive BM. 01/18: Afebrile. On TPs 84 hours. J-tube was unplugged yesterday. Recommended tube feeding through G-tube only. Medications per G-tube. Neurologically unchanged 01/19 - low-grade fevers overnight currently 100. On TPs greater than 100 hours. Tolerating tube feeding. Neurologically unchanged. 01/21/16 No events overbright. On TP's with 35-50% FIO2. Afebrile. 04/08/2017: reconsulted for tachypnea and possible sepsis. patient was seen and evaluated by Dr. Kenny overnight and felt to be stable to remain on the floor. Today, persistent tachypnea and tachycardia, although no desaturation or change in condition. Patient well-known to the [facility] and has had no mental status change or neurologic improvements in over 1 year. Patient now with evidence of likely wide-spread metastatses to the liver along with multiple other active medical problems. The patient on my exam today appears unchanged over months. he is tachypneic and tachycardic, although not diaphoretic. fever curve is low and he is growing resistant PSAE in the sputum which is being covered. the patient is unable to provide any information due to his clinical condition. family continues to press for aggressive measures in this patient with no hope for meaningful recovery, both neurologic and oncologic. 04/09: no changes. still tachypneic and tachycardic. multiple long family discussions today with son and daughter who are medical decision-makers. last night patient was made full DNR. Today they ask to make him palliative with comfort measures on the conditions that: 1) if we can medically feed him, provide him with some feeding. 2) he can remain in his ICU bed for now, 3) we can attempt to pursue liver biopsy for confirmation of the metastatic disease. I let them know that medically, he is not appropriate for tube feeds due to intolerance and the possibility of a tube feed leak around the PEG tube, and they understand. I am not sure if he will remain stable enough to undergo liver biopsy, but I let them know we can entertain that idea and see if he is stable enough to undergo this.Otherwise, at their request, I have discontinued all life-saving measures and pursued comfort care with prn ativan and morphine. Objective Vital Signs Date Time Temp Pulse Resp B/P (MAP) Pulse Ox O2 Delivery O2 Flow Rate FiO2 04/09/17 06:00 114 04/09/17 04:00 98.6 32 125/73 (90) 94 04/08/17 20:23 T-piece 40 04/08/17 09:01 6.00 Intake and Output 04/09/17 04/09/17 04/10/17 08:00 16:00 00:00 Intake Total 278 ml Output Total 850 ml Balance -572 ml Result Diagram: 04/09/17 0440 04/09/17 0440 Imaging Last Impressions Chest X-Ray 01/20/17 0600 Signed Impressions: Service Date/Time: Friday, January 20, 2017 04:22 - CONCLUSION: 1. Bibasilar patchy densities, unchanged. 2. Tracheostomy tube unchanged. Mikie Vargas MD Head CT 01/09/17 0000 Signed Impressions: Service Date/Time: December 17:43 - CONCLUSION: 1. No acute hemorrhage or mass effect. 2. 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 3. Atrophy. Gerald Mukherjee MD CT Angiography 01/09/17 0000 Signed Impressions: Service Date/Time: December 17:49 - CONCLUSION: 1. No evidence of pulmonary emboli. 2. Patchy consolidation in both posterior lower lobes right greater than left. This could represent pneumonia. 3. 2 small noncalcified pulmonary nodules which are nonspecific finding. Short-term CT followup is recommended beginning in 6 months with a noncontrast outpatient CT. Gerald Mukherjee MD Tube Change 12/31/16 0000 Signed Impressions: Service Date/Time: Saturday, December 31, 2016 16:35 - CONCLUSION: Uncomplicated gastrojejunostomy tube exchange as above. Moises Ramírez MD Tube Check 12/04/16 0000 Signed Impressions: Service Date/Time: Sunday, December 04, 2016 17:58 - CONCLUSION: Uncomplicated tube injection as above. the tube is in good position and functions normally. Moises Ramírez MD Abdomen X-Ray 08/31/16 0000 Signed Impressions: Service Date/Time: Wednesday, August 31, 2016 16:36 - CONCLUSION: 1. No acute findings. Mild constipation. Durga Dotson MD Abdomen/Pelvis CT 04/12/16 0000 Signed Impressions: Service Date/Time: Tuesday, April 12, 2016 20:52 - CONCLUSION: 1. 6.4 cm necrotic mass or abscess in the soft tissues posteriorly just below the sacrum associated with some bony destructive change of the lower most sacrum and coccyx with inflammatory changes extending into the ischiorectal fossa and into the presacral retroperitoneum predominantly on the left side. There is associated fairly marked mural thickening of the anal verge and rectum. 2. There is gastrostomy and Arevalo catheter present. Stable abdominal aortic aneurysm. Durga Dotson MD Head Magnetic Resonance Angiography 03/05/16 0000 Signed Impressions: Service Date/Time: Saturday, March 05, 2016 09:26 - CONCLUSION: Persistent high-grade subtotal occlusive stenotic lesions in the distal right vertebral artery and proximal basilar artery with significant improvement in flow and recanalization following initial presentation of thrombosis. Stable interstitial circulation without significant stenosis. Ernesto Kulkarni MD Brain MRI 03/05/16 0000 Signed Impressions: Service Date/Time: Saturday, March 05, 2016 09:26 - CONCLUSION: Evolving brainstem and bilateral occipital lobe infarcts with evidence of subacute hemorrhagic products. There is decreasing restricted diffusion and increasing loss of volume characteristic of a subacute to chronic infarct. No evidence of acute infarct, acute hemorrhage mass or edema. Ernesto Kulkarni MD Neck Magnetic Resonance Angiography 12/22/15 1445 Signed Impressions: Service Date/Time: Tuesday, December 22, 2015 09:22 - CONCLUSION: Variant origin of the left vertebral artery from the aortic arch. No evidence of carotid stenosis. Glen Zamora MD Head/Brain Mag Res Venography 12/22/15 0000 Signed Impressions: Service Date/Time: Tuesday, December 22, 2015 09:22 - CONCLUSION: Normal MRV. Jonel Jones Jr., MD Objective Remarks GENERAL: middle-aged cachectic male, currently resting in bed on TP via trach in respiratory distress. SKIN: Warm and dry. No rash. Decubitus sacral ulcer HEAD: Normocephalic. EYES: No scleral icterus. No injection or drainage. NECK: trachea midline. No JVD. Tracheostomy CARDIOVASCULAR: Tachycardic, RR. RESPIRATORY: tachypneic, in distress. equal chest rise. GASTROINTESTINAL: Abdomen soft, non-tender, nondistended. GJ tube with ?tube feeds around insertion site. MUSCULOSKELETAL: No significant peripheral edema. Neuro: On no sedation. Eyes are open, do not track. Withdraws lower extremities to pain only Procedures 07/22/2016 Wide excision of sacral skin wound, biopsy of the cavity lining and debridement. PEG removal and Gj tube placement 07/29/16 VAC changes- M-W-F 10/23/16, 11/18, 12/31- GJ tube replacement 01/02/16 PEG placement 01/02/16 tracheostomy 02/25/17 PEG replacement 03/03/17 Cystoscopy and palliative transurethral resection of bladder tumor greater than 5cm originating from the right bladder wall Date of Insertion: Mar 03, 2017 A/P Assessment and Plan Assessment: 61yM with non-Hodgkins lymphoma, devastating CVA with persistent vegetative state, bladder cancer, and likely widely metastatic disease to the liver, chronic respiratory failure, acute on chronic renal insufficiency who presents to the ICU for concerns over possible sepsis secondary to presumably pseudomonas health-care associated pneumonia. Overall, terminal patient with no improvements after greater than 1 year. At the family's request, will pursue comfort measures. d/c all meds and add prn morphine and ativan. I will talk with radiology about the possibility of liver biopsy, but he may not be stable enough to undergo such an intervention. 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 - prn ativan/morphine for terminal withdraw of care. Pulmonary: Chronic Respiratory failure Right upper lobe/right middle lobe pulmonary nodules - outpatient CT scan without contrast in 6 months to follow-up Continue with oxygen keep sat >90%. Duo nebs every 6 hours Pulm toilet, trach care Pulm is following- Dr. aTylor - does not require mechanical ventilation currently. morphine to prevent air hunger/tachypnea. CV: History of paroxysmal atrial fibrillation currently in sinus tachycardia Hypertension Dyslipidemia Monitor HR and BP keep MAP>65mmHg. O Continue ASA 325mg daily, Cardizem 30mg QID will try small dose of propranolol 10mg po q8h stop telemetry. vitals qShift Renal//FEN: Acute kidney injury on chronic renal insufficiency Monitor renal function, Accurate I/O's electrolytes replacement if indicated keep ivf as ordered, mivf @ 65 cc/hr. GI: Mild protein calorie malnutrition Gastroesophageal reflux disease On Protonix Tube feeds J-tube followed by GI Hold tube feeds for current intolerance with ? tube feeds around g-tube site. ID: Klebsiella/Pseudomonas/staph aureus HCAP possible sepsis Continue abx per ID send procalcitonin d/c abx. Heme: Microcytic anemia Stage III a non-Hodgkin's lymphoma Bladder cancer - not stable for XRT. Endo: History of diabetes mellitus On SSI (low scale) for glycemic control Stage IV decubitus ulcers Dressing changes daily Management per wound care GI prophylaxis with Protonix 40mg Q12 DVT prophylaxis with SCD and Heparin SQ Dispo: remain in the ICU at the family's request. Palliative continues to be involved. Lyndon Navarro MD Apr 09, 2017 06:49
[2017-04-09] MEDS: PROPRANOLOL HCL 10 MG TAB PEG SCH ×3 (06:57→17:45)
[2017-04-09] MEDS: INSULIN ASPART SUPPLEMENTAL SCALE SQ SCH ×3 (08:00→16:28)
[2017-04-09] MEDS: LANSOPRAZOLE SOLUTAB 30 MG TAB PEG SCH (08:14)
[2017-04-09] MEDS: levETIRAcetam 500 MG/5 ML UDC PEG SCH (08:15)
[2017-04-09] MEDS: INSULIN DETEMIR 100 UNITS/ML VIAL SQ SCH (08:16)
[2017-04-09] MEDS: ARTIFICIAL TEARS OPTH SOLN 15 ML BTL EACH EYE SCH ×2 (09:00→21:00)
[2017-04-09] MEDS: BACITRACIN TOP OINT 15 GM TUBE TOP SCH (09:00)
[2017-04-09] MEDS: BACITRACIN OINT 0.9 GM PKT TOPICAL SCH (09:00)
[2017-04-09] MEDS: NYSTATIN 100,000 U/GM PWD 15 GM BTL TOPICAL SCH (09:00)
[2017-04-09] MEDS: SODIUM CHLORIDE 0.65% NASAL SPRAY 45 ML BTL NASAL SCH (09:00)
[2017-04-09] MEDS: MORPHINE SULFATE 4 MG/ML INJ IV PUSH PRN ×2 (13:00→17:47)
--- NOTE | 2017-04-09 14:17 | PD.ONC.PN ---
Subjective Subjective Remarks Patient had fever of 100.6 at noon today. multiple family members at bedside. family wishing to have biopsy of liver lesion. Objective Data Date Time Temp Pulse Resp B/P (MAP) Pulse Ox O2 Delivery O2 Flow Rate FiO2 04/09/17 12:00 100.6 119 40 125/74 (91) 96 04/09/17 12:00 117 04/09/17 10:00 118 04/09/17 08:02 98 T-piece 6.00 40 04/09/17 08:00 106 04/09/17 08:00 98.7 105 41 122/73 (89) 99 04/09/17 07:00 98 T-Piece 28 04/09/17 06:00 114 04/09/17 04:00 108 04/09/17 04:00 98.6 108 32 125/73 (90) 94 04/09/17 02:00 101 04/09/17 00:00 96 04/09/17 00:00 99.5 96 18 119/73 (88) 100 04/08/17 22:00 94 04/08/17 20:23 94 T-piece 40 04/08/17 20:00 112 04/08/17 20:00 101.5 112 37 122/74 (90) 93 04/08/17 19:00 93 T-Piece 28 04/08/17 16:00 102.9 121 38 128/74 (92) 92 04/08/17 14:12 98 T-Piece 28 04/09/17 04/09/17 04/09/17 07:00 15:00 23:00 Intake Total 278 ml Output Total 850 ml Balance -572 ml Result Diagram: 04/09/1743904/09/17 0440 Laboratory Results Laboratory Tests Test 04/09/17 04:40 White Blood Count 6.5 TH/MM3 Red Blood Count 3.08 MIL/MM3 Hemoglobin 8.0 GM/DL Hematocrit 23.7 % Mean Corpuscular Volume 76.8 FL Mean Corpuscular Hemoglobin 25.9 PG Mean Corpuscular Hemoglobin Concent 33.7 % Red Cell Distribution Width 22.7 % Platelet Count 78 TH/MM3 Mean Platelet Volume 8.9 FL Prothrombin Time 21.4 SEC Prothromb Time International Ratio 1.9 RATIO Blood Urea Nitrogen 30 MG/DL Creatinine 1.27 MG/DL Random Glucose 184 MG/DL Calcium Level 9.2 MG/DL Sodium Level 141 MEQ/L Potassium Level 3.6 MEQ/L Chloride Level 108 MEQ/L Carbon Dioxide Level 25.4 MEQ/L Anion Gap 8 MEQ/L Estimat Glomerular Filtration Rate 58 ML/MIN Administered Medications Medications (Trade) Dose Ordered Sig/Junior Route PRN Reason Start Time Stop Time Status Last Admin Dose Admin IV Flush (NS Flush) 2 ml UNSCH PRN IVF FLUSH AFTER USING IV ACCESS 12/21/15 06:00 03/27/17 07:40 Acetaminophen (Tylenol 650 Mg/ 20 ml Liq) 650 mg Q6H PRN TUBE TEMP >100.4 12/30/15 15:15 04/08/17 17:38 Nystatin (Mycostatin Powder) 1 applic Q12HR TOPICAL 01/08/16 21:00 04/09/17 09:00 Ondansetron HCl (Zofran Inj) 4 mg Q6HR PRN IV PUSH nausea/vomiting 04/14/16 19:45 03/16/17 16:00 Levalbuterol HCl (Xopenex Neb) 0.63 mg Q4HR NEB PRN NEB SHORTNESS OF BREATH 05/05/16 12:00 04/08/17 01:03 Aspirin (Aspirin) 325 mg DAILY TUBE 05/27/16 11:40 Future Hold 04/08/17 09:32 Bacitracin (Baciguent Oint) 1 applic BID TOP 07/20/16 10:00 04/09/17 09:00 Sodium Chloride ([place]) 1 spray BID NASAL 08/01/16 21:00 04/09/17 09:00 Artificial Tears (Tears Naturale Opth Soln) 1 drop BID EACH EYE 09/05/16 21:00 04/09/17 09:00 Morphine Sulfate (Morphine Inj) 1 mg Q24H PRN IV PUSH dressing change 30 min before 09/17/16 14:30 10/22/16 02:00 Bisacodyl (Dulcolax Supp) 10 mg DAILY PRN RECTAL SEVERE CONSTIPATION IF NOT PO 09/26/16 15:30 12/08/16 09:17 Loperamide HCl (Imodium Liq) 2 mg Q6H PRN PEG DIARRHEA 12/27/16 15:30 04/06/17 20:38 Magnesium Hydroxide (Milk Of Magnesia Liq) 30 ml DAILY PRN PEG mild-moderate constipation 12/27/16 15:30 02/11/17 08:46 Magnesium Hydroxide (Milk Of Magnesia Liq) 30 ml DAILY PEG 12/28/16 09:00 Future Hold 01/19/17 08:44 Sennosides (Senna Liq) 8.8 mg DAILY@1600 PEG 12/27/16 16:00 Future Hold 03/24/17 17:13 Bacitracin (Bacitracin Oint Packet) 0.9 gm DAILY TOPICAL 02/25/17 09:00 04/09/17 09:00 Insulin Aspart (NovoLOG SUPPLEMENTAL SCALE) 1 ACHS SLIDING SCALE SQ 03/26/17 21:00 04/09/17 12:00 Insulin Detemir (Levemir Inj) 10 units Q12HR SQ 03/28/17 21:00 04/09/17 08:16 Sodium Chloride 1,000 ml @ 65 mls/hr [id number] IV 04/01/17 12:30 04/09/17 05:20 Warfarin Sodium (Coumadin) 3 mg DAILY@1600 PO 04/07/17 16:00 Future Hold 04/07/17 17:40 Diltiazem HCl (Cardizem) 60 mg Q6HR PEG 04/08/17 18:00 04/09/17 12:32 Paroxetine HCl (Paxil Liq) 20 mg DAILY@1800 PEG 04/08/17 18:00 04/08/17 17:19 Lansoprazole (Prevacid Odt) 30 mg BID PEG 04/08/17 21:00 04/09/17 08:14 Levetriacetam (Keppra Liq) 500 mg Q12HR PEG 04/08/17 21:00 04/09/17 08:15 Hyoscyamine Sulfate (Levsin) 0.25 mg Q8HR PEG 04/08/17 22:00 04/09/17 05:21 Fluconazole (Diflucan) 200 mg DAILY PEG 04/09/17 09:00 04/09/17 08:15 Ferrous Sulfate (Ferrous Sulfate Liq) 300 mg DAILY PEG 04/09/17 09:00 04/09/17 08:15 Ascorbic Acid (Vitamin C) 1,000 mg DAILY PEG 04/09/17 09:00 9/20/17 08:15 Acetaminophen/ Codeine Phosphate (Tylenol - Codeine 120-12 Liq) 5 ml Q4H PRN PEG PAIN SCALE 2 TO 10 04/08/17 16:30 04/09/17 05:28 Propranolol HCl (Inderal) 20 mg Q6HR PEG 04/09/17 06:30 04/09/17 12:32 Morphine Sulfate (Morphine Inj) 2 mg Q1H PRN IV PUSH pain 7-10 or not taking po 04/09/17 07:00 04/09/17 13:00 Objective Remarks GENERAL: chronically ill male, supine in bed SKIN: Warm and dry. HEAD: Normocephalic. EYES: No injection or drainage. NECK: Supple, trachea midline. trach in place CARDIOVASCULAR: +S1/S2 RESPIRATORY: anterior mo clear. GASTROINTESTINAL: Abdomen mildly distended. G tube in place NEUROLOGICAL: awake. eyes open. does not follow commands, does not track with eyes. Assessment/Plan Problem List: (1) Bladder cancer ICD Codes: C67.9 - Malignant neoplasm of bladder, unspecified Plan: 04/09: d/w family at bedside. liver mass is likely met from bladder cancer, however, they state they would like to proceed with biopsy. not interested in hospice at this time. invasive radiology has already been consulted for biopsy of liver mass. --now with liver lesion --biopsy showed small cell carcinoma. --not a candidate for systemic therapy. received Bladder XRT (2) Non-Hodgkin lymphoma ICD Codes: C85.90 - Non-Hodgkin lymphoma, unspecified, unspecified site Status: Chronic Plan: no evidence of recurrence Assessment 61 y/o male with prolonged hospitalization with confirmed bladder cancer and new liver lesion Attending Statement fever sepsis MRI liver = multiple lesions . d/d infection vs mets Dr Alvarez( ID) has ordered the liver mass bx with IR. Pt needs to be off of anticoagulation for several days before bx can be done. Will d/w family once we have the pathology result. If malignancy is confirmed then he is not a candidate for chemo and will recommend hospice. will follow Magaly Cortez Apr 09, 2017 14:17 Ed Whyte MD Apr 09, 2017 18:39
--- NOTE | 2017-04-09 16:57 | HHI.HCPN ---
Reason for visit a. To assist with evaluation and management of symptoms including: dyspnea, encephalopathy, b. To assist medical decision maker(s) with: better understanding of current medical conditions; weighing benefits/burdens of medical treatment options; making medical treatment decisions. Subjective/Interval History Pt is back on the icu, tachycardic and tachypneic. Unresponsive. Could not elicit history. History brought forward from initial consult by Rita MOCTEZUMA on 01/10/16: This 59-year-old patient was admitted on 12/21/15 via the ED for facial drooping. ED physician notes that patient and patients are poor historians, EMS reported the could not provide good timelines to them. Patient also reported headache, difficulty ambulating. He had known history of recent findings of mass in the brain. During ED course had deterioration of clinical condition and able to protect his airway, unable to follow commands patient was intubated and CT brain obtained. He was admitted for further evaluation and management to the ICU. [facility] was consulted and following patient. Pathology on recent brain biopsy (12/13) still pending. CLINICAL/HOSPITAL COURSE: * CT brain= no focal or acute intracranial hemorrhage. New area decreased density in left occipital lobe suggestive of recent nonhemorrhagic infarct, decreased density in previously noted right occipital lobe has increased in size * Brain MRI = new area of restricted diffusion within left occipital lobe suggesting acute infarct. Interval enlargement of the area of restricted diffusion within right occipital lobe suggesting probable extension of right occipital and started on. Underlying enhancement of right occipital lobe is slightly worse than the previous exam and nonspecific. Biopsy has been performed and results are pending. Tiny focal area of restricted diffusion within right cerebellar hemisphere consistent with probable acute/subacute lacunar infarct. Signal abnormality in the SWI sequence within the right occipital lobe suggesting some hemorrhage in biopsy bed. No midline shift or extra-axial fluid collections. * CXR= no acute cardiopulmonary disease * -Neurology consulted, ordered MRA to look for vertebrobasilar stenosis, echo done last admission notes normal EF with normal valves and normal left atrial size. EEG also ordered. MR venogram ordered. EEG= abnormal study consistent with her encephalopathy. MRV indicated basilar occlusion; neurology notes discussion with family regarding chemical code only, also notes discussion regarding risks associated with the anticoagulates, was discussed with radiologist/INR recommended not helpful to extract basilar clot as this could result in patient's . It was felt the colin was infarcted. Further neurology notes "he could be locked in", is acting as if colin is infarcted. * Oncology known to patient also consulted for non-Hodgkin's lymphoma: Dr Whyte documents that there was no evidence of residual or recurrent disease on CT scans of chest, abdomen, pelvis done in October and November of this year. Pathology was still pending, had been sent to [facility] for second opinion. No acute oncology interventions recommended at that time, will follow. * 12/23 - 12/25 febrile. CPAP trials. Remains on vent off of sedation. Withdrawing to pain. Repeat brain MRI= evolving brainstem stroke. Neurology notes extensive discussion with family, notes discussion the patient is locked in but fully aware, family would like to see help patient does over the next 3 months. 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 Biopsy brain lesion appears consistent with acute infarct no lymphoma. Family desires ongoing aggressive measures, will proceed with tracheostomy. Sputum culture positive sensitive Klebsiella. * 01/01 tracheostomy, PEG tube placement * 01/04 trach collar trials, alternating with T piece. Low-grade fever 100.5. CXR = mild bibasilar atelectasis. Neuro: Spontaneously opening eyes, looking up / down, directionally to commands. * 01/07 still "locked in " , transferred off ICU to regular floor. * 01/08 pulmonology consulted-not CXR clear no evidence of pulmonary infection. He may have some underlying COPD recommends continued aerosol treatments. Further notes long discussion with family at bedside regarding tracheostomy, long-term use of trach until patient able to protect his airway, no further recommendations. Palliative care consulted to assist with clarification of goals of treatment. Family/friend interactions Had conference call between the health care decision maker (son and daughter) Leanne Duarte Dr. Greene and myself Updated all family members as to pt's dire situation and is declining. Answered their questions on pt's condition, overall prognosis, his decline. Spoke with them and they reconfirm DNR status. Amenable to morphine and comfort meds to keep patient comfortable. They are to decide on further lab work, vitals, and moving to another floor. Family has indicated they wanted to stay in the hospital and do not want to go to a hospice facility. They understand pt can decline very suddenly, and is declining. Prognosis could be hours to days if decline with current trajectory. Advance Directives Living Will: Never completed Health Care Surrogate: Never completed Objective Vital Signs Date Time Temp Pulse Resp B/P (MAP) Pulse Ox O2 Delivery O2 Flow Rate FiO2 04/09/17 14:00 109 04/09/17 12:00 100.6 119 40 125/74 (91) 96 04/09/17 12:00 117 04/09/17 10:00 118 04/09/17 08:02 98 T-piece 6.00 40 04/09/17 08:00 106 04/09/17 08:00 98.7 105 41 122/73 (89) 99 04/09/17 07:00 98 T-Piece 28 04/09/17 06:00 114 04/09/17 04:00 108 04/09/17 04:00 98.6 108 32 125/73 (90) 94 04/09/17 02:00 101 04/09/17 00:00 96 04/09/17 00:00 99.5 96 18 119/73 (88) 100 04/08/17 22:00 94 04/08/17 20:23 94 T-piece 40 04/08/17 20:00 112 04/08/17 20:00 101.5 112 37 122/74 (90) 93 04/08/17 19:00 93 T-Piece 28 Intake & Output 04/09/17 04/09/17 07:00 19:00 Intake Total 278 ml Output Total 850 ml Balance -572 ml Tube Feeding 278 ml Output Urine Total 850 ml Physical Exam CONSTITUTIONAL/GENERAL: This is a chronically ill, frail appearing patient, tachypneic TUBES/LINES/DRAINS: Arevalo catheter, PEG tube, tracheostomy, reported ongoing wound to sacrum though I did not visualize. Skin temperature appropriate. Not diaphoretic. CARDIOVASCULAR: Tachycardic without murmurs.Peripheral pulses symmetric. Trace peripheral edema to upper and lower extremities. RESPIRATORY/CHEST: Tracheostomy midline, no symptoms of problems around site. Symmetric, tachypneic. T piece, Lung sounds with some coarse air movement to upper mo. GASTROINTESTINAL: Abdomen soft, no apparent tenderness, nondistended. No palpable masses. Bowel sounds normoactive. tube feed infusing via PEG. Very slight erythema around PEG tube insertion, and some drainage around tube site MUSCULOSKELETAL: Extremities without clubbing, cyanosis. Trace edema upper extremities, lower extremities. No joint effusion noted. No mottling or clubbing.+ Muscle atrophy to all 4 extremities. NEUROLOGICAL: Eyes open, not tracking. Does not follow commands, Otherwise no movement, no following commands. PSYCHIATRIC: Difficult to fully assess due to clinical condition. . Diagnostic Tests Laboratory Laboratory Tests Test 04/07/17 06:55 04/07/17 17:51 04/08/17 05:38 04/08/17 13:19 White Blood Count 4.2 TH/MM3 (4.0-11.0) 4.7 TH/MM3 (4.0-11.0) Red Blood Count 3.23 MIL/MM3 (4.50-5.90) 3.06 MIL/MM3 (4.50-5.90) Hemoglobin 8.5 GM/DL (13.0-17.0) 7.9 GM/DL (13.0-17.0) Hematocrit 24.4 % (39.0-51.0) 23.5 % (39.0-51.0) Mean Corpuscular Volume 75.4 FL (80.0-100.0) 76.6 FL (80.0-100.0) Mean Corpuscular Hemoglobin 26.2 PG (27.0-34.0) 26.0 PG (27.0-34.0) Mean Corpuscular Hemoglobin Concent 34.8 % (32.0-36.0) 33.9 % (32.0-36.0) Red Cell Distribution Width 23.0 % (11.6-17.2) 23.3 % (11.6-17.2) Platelet Count 77 TH/MM3 (150-450) 81 TH/MM3 (150-450) Mean Platelet Volume 8.4 FL (7.0-11.0) 8.6 FL (7.0-11.0) Prothrombin Time 18.1 SEC (9.8-11.6) 18.2 SEC (9.8-11.6) Prothromb Time International Ratio 1.6 RATIO 1.6 RATIO Blood Urea Nitrogen 27 MG/DL (7-18) 28 MG/DL (7-18) Creatinine 1.18 MG/DL (0.60-1.30) 1.19 MG/DL (0.60-1.30) Random Glucose 200 MG/DL (74-106) 201 MG/DL (74-106) Calcium Level 8.7 MG/DL (8.5-10.1) 8.8 MG/DL (8.5-10.1) Sodium Level 141 MEQ/L (136-145) 140 MEQ/L (136-145) Potassium Level 3.8 MEQ/L (3.5-5.1) 4.8 MEQ/L (3.5-5.1) Chloride Level 107 MEQ/L (98-107) 108 MEQ/L (98-107) Carbon Dioxide Level 24.7 MEQ/L (21.0-32.0) 25.8 MEQ/L (21.0-32.0) Anion Gap 9 MEQ/L (5-15) 6 MEQ/L (5-15) Estimat Glomerular Filtration Rate 63 ML/MIN (>89) 62 ML/MIN (>89) Blood Gas Puncture Site RT RADIAL Blood Gas Patient Temperature 98.6 Blood Gas HCO3 25 mmol/L (22-26) Blood Gas Base Excess 1.4 mmol/L (-2-2) Blood Gas Oxygen Saturation 91 % (90-100) Arterial Blood pH 7.48 (7.380-7.420) Arterial Blood Partial Pressure CO2 33 mmHg (38-42) Arterial Blood Partial Pressure O2 71 mmHg (61-120) Arterial Blood Oxygen Content 13.0 Vol % (12.0-20.0) Arterial Blood Carboxyhemoglobin 2.0 % (0-4) Arterial Blood Methemoglobin 1.3 % (0-2) Blood Gas Hemoglobin 10.0 G/DL (12.0-16.0) Oxygen Delivery Device TRACH COLLAR Blood Gas Inspired Oxygen 35 % Lactic Acid Level 1.1 mmol/L (0.4-2.0) Procalcitonin 0.71 ng/mL (0.00-0.50) Test 04/09/17 04:40 White Blood Count 6.5 TH/MM3 (4.0-11.0) Red Blood Count 3.08 MIL/MM3 (4.50-5.90) Hemoglobin 8.0 GM/DL (13.0-17.0) Hematocrit 23.7 % (39.0-51.0) Mean Corpuscular Volume 76.8 FL (80.0-100.0) Mean Corpuscular Hemoglobin 25.9 PG (27.0-34.0) Mean Corpuscular Hemoglobin Concent 33.7 % (32.0-36.0) Red Cell Distribution Width 22.7 % (11.6-17.2) Platelet Count 78 TH/MM3 (150-450) Mean Platelet Volume 8.9 FL (7.0-11.0) Prothrombin Time 21.4 SEC (9.8-11.6) Prothromb Time International Ratio 1.9 RATIO Blood Urea Nitrogen 30 MG/DL (7-18) Creatinine 1.27 MG/DL (0.60-1.30) Random Glucose 184 MG/DL (74-106) Calcium Level 9.2 MG/DL (8.5-10.1) Sodium Level 141 MEQ/L (136-145) Potassium Level 3.6 MEQ/L (3.5-5.1) Chloride Level 108 MEQ/L (98-107) Carbon Dioxide Level 25.4 MEQ/L (21.0-32.0) Anion Gap 8 MEQ/L (5-15) Estimat Glomerular Filtration Rate 58 ML/MIN (>89) Result Diagram: 04/09/170 04/09/170 Imaging Last Impressions Chest X-Ray 04/07/17 0000 Signed Impressions: Service Date/Time: Friday, April 07, 2017 17:37 - CONCLUSION: 1. Persistent hypoinflation with mild interstitial prominence. 2. Bibasilar atelectatic changes. No confluent infiltrate or effusion. Bobby Gray MD Abdomen MRI 04/07/17 0000 Signed Impressions: Service Date/Time: Friday, April 07, 2017 15:31 - CONCLUSION: 1. Hepatomegaly with innumerable lesions scattered throughout both lobes measuring up to 1.5 cm. The appearance is highly suspicious for metastatic disease. Infectious process is also included in the differential diagnosis but felt less likely. 2. Nonacute findings include splenomegaly and a fusiform infrarenal aortic aneurysm measuring up to 3.2 cm. Glen Gordon MD Liver Ultrasound 04/02/17 0000 Signed Impressions: Service Date/Time: Sunday, April 02, 2017 18:36 - CONCLUSION: 1. Small hypoechoic lesion in the right hepatic lobe that is not convincing for a cyst or other benign structure. A small metastatic lesion would be in the differential. I don't clearly see it on the prior CTs. Abdomen MRI with and without contrast may be helpful. 2. Hepatomegaly. 3. Sludge and small stones in the gallbladder. No evidence of cholecystitis or biliary obstruction. Glen Moore MD Brain MRI 03/14/17 0000 Signed Impressions: Service Date/Time: Tuesday, March 14, 2017 12:41 - CONCLUSION: The signal abnormality and enhancement within the bilateral occipital lobes and colin have decreased since the prior examinations. No new abnormality is identified. There is no new enhancing area or signs of a recent ischemia. Glen Gordon MD Chest CT 03/10/17 0000 Signed Impressions: Service Date/Time: Friday, March 10, 2017 21:00 - CONCLUSION: 1. Periaortic soft tissue along the proximal descending thoracic aorta not previously seen. This represents either lymphomatous involvement or adjacent consolidated airspace disease. 2. Mild bilateral airspace disease 3. No evidence of significant lymphadenopathy involving the mediastinum, hilar regions, axillas or supraclavicular lore chain. 4. Tracheostomy tube in place. Ernesto Kulkarni MD Abdomen/Pelvis CT 02/27/17 0000 Signed Impressions: Service Date/Time: February 02:24 - CONCLUSION: 1. Abdominal aortic aneurysm. 2. Bladder mass is noted on the right posteriorly with apparent extravesical extension and clot formation. 3. Left renal cyst. 4. Left lower lobe atelectasis. 5. Large sacral decubitus ulcer with bony destruction and sclerosis of the sacrum mid to left lateral portion in the region of S3 and inferiorly which would suggest chronic osteomyelitis in the appropriate clinical setting. Rajan Granados MD Soft Tissue Ultrasound 02/26/17 0000 Signed Impressions: Service Date/Time: Sunday, February 26, 2017 12:52 - CONCLUSION: 1. Just inferior to the G-tube in the left abdomen, there is a superficial 3.8 x 2.9 0.9 cm complex fluid collection in the subcutaneous tissues. 2. Findings are nonspecific. This could represent a small seroma or abscess. Would consider CT scan of the abdomen without contrast for further evaluation to determine if there is intraperitoneal extension. Bobby Gray MD Gastrostomy Tube Placement 02/25/17 0000 Signed Impressions: Service Date/Time: Saturday, February 25, 2017 14:19 - CONCLUSION: Uncomplicated exchange of gastroenteric feeding tube for gastrostomy tube as above. Positioning confirmed. The tube can be used immediately. Glen Zamora MD Tube Change 02/14/17 0000 Signed Impressions: Service Date/Time: Tuesday, February 14, 2017 00:00 - CONCLUSION: Uncomplicated gastrojejunostomy tube exchange as above. Scott Griffin MD Head CT 01/09/17 0000 Signed Impressions: Service Date/Time: December 17:43 - CONCLUSION: 1. No acute hemorrhage or mass effect. 2. 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 3. Atrophy. Gerald Mukherjee MD CT Angiography 01/09/17 0000 Signed Impressions: Service Date/Time: December 17:49 - CONCLUSION: 1. No evidence of pulmonary emboli. 2. Patchy consolidation in both posterior lower lobes right greater than left. This could represent pneumonia. 3. 2 small noncalcified pulmonary nodules which are nonspecific finding. Short-term CT followup is recommended beginning in 6 months with a noncontrast outpatient CT. Gerald Mukherjee MD Tube Check 12/04/16 0000 Signed Impressions: Service Date/Time: Sunday, December 04, 2016 17:58 - CONCLUSION: Uncomplicated tube injection as above. the tube is in good position and functions normally. Moises Ramírez MD Abdomen X-Ray 08/31/16 0000 Signed Impressions: Service Date/Time: Wednesday, August 31, 2016 16:36 - CONCLUSION: 1. No acute findings. Mild constipation. Durga Dotson MD Head Magnetic Resonance Angiography 03/05/16 0000 Signed Impressions: Service Date/Time: Saturday, March 05, 2016 09:26 - CONCLUSION: Persistent high-grade subtotal occlusive stenotic lesions in the distal right vertebral artery and proximal basilar artery with significant improvement in flow and recanalization following initial presentation of thrombosis. Stable interstitial circulation without significant stenosis. Ernesto Kulkarni MD Neck Magnetic Resonance Angiography 12/22/15 1445 Signed Impressions: Service Date/Time: Tuesday, December 22, 2015 09:22 - CONCLUSION: Variant origin of the left vertebral artery from the aortic arch. No evidence of carotid stenosis. Glen Zamora MD Head/Brain Mag Res Venography 12/22/15 0000 Signed Impressions: Service Date/Time: Tuesday, December 22, 2015 09:22 - CONCLUSION: Normal MRV. Jonel Jones Jr., MD Procedures * 01/01 tracheostomy, PEG tube placement . 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; EEG indicates encephalopathy, neuro following patient felt to be in a "locked-in "state (2) Non-Hodgkin lymphoma Comment: -In remission status post chemotherapy completed May 2015 (3) Acute respiratory failure Comment: Pulmonology following, medical management (4) A-fib (5) Status post stereotactic brain biopsy (6) Brain lesion Comment: Status post biopsy November 2015; pathology consistent with acute infarct without evidence of lymphoma (7) DM (diabetes mellitus) Symptom Scale: (1) Dyspnea 0-10 Scale: Unable to quantify (2) Anxiety 0-10 Scale: Unable to quantify (3) Dysphagia 0-10 Scale: Unable to quantify (4) Dyspnea 0-10 Scale: Unable to quantify (5) Encephalopathy 0-10 Scale: Unable to quantify (6) Malnutrition 0-10 Scale: Unable to quantify Comment: tube feedings reviewed with family Pertinent Non-Medical Issues * Psychosocial:Mr. Flores is originally from [place]. He moved to the [place] around 35 years ago, first to [place] and later to [place]. He is not legally but remains with his ex-, Leanne. They have been together for 31+ years and have three children together: Leanne, Gerald, and Ginny. Gerald is currently in [employer] for work. Mr. Flores has 2 brothers and 7 sisters. His father is of old age. His mother is alive and was living with the patient. Greatly enjoys his family. Retired. 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 * Spiritual: * Legal:Patient due to clinical condition is currently unable to participate in medical decision making. Not clear he will regain this ability. Family does not believe he has completed advance directives. per [place] Statutes, medical proxy decision making would fall to the majority of adult children, as Mr. Flores is not legally . His ex Leanne and children ALL participate in decision making, with dtr Leanne and ex Leanne serving as primary points of contact. * Ethical issues impacting care: Important Contacts Leanne, daughter: [phone] Ginny, daughter: [phone] Gerald Flores, son: currently in [facility] for work but has communication with his siblings. Leanne, ex-: [phone] . Prognosis This patient has had 20 day hospital course thus far, admitted on 62 for a large brainstem infarct, bilateral occipital infarcts. He has subsequently had ongoing encephalopathy and severe communication limitations, neurology feels he is in a "locked-in "state. He has suffered from respiratory failure likely secondary to significant CVA. Appears he should be able to survive this acute hospitalization, however not clear when or if he will regain ability to communicate, based on current assessments patient will require long-term care placement. He will remain high risk for potential competition/setbacks due to immobile status including infections, DVT etc. . Code Status: No Code Plan ==Legal decision maker - Of note per [place] Statutes, medical proxy decision making would fall to the majority of adult children, as Mr. Flores is not legally . His ex Leanne and children ALL participate in decision making, with dtr Leanne and ex Leanne serving as primary points of contact. GOALS: Had conference call (04/09) between the health care decision maker (son and daughter Leanne Duarte), Dr. Navarro and myself Updated all family members as to pt's dire situation and is declining. Answered their questions on pt's condition, overall prognosis, his decline. Spoke with them and they reconfirm DNR status. Amenable to morphine and comfort meds to keep patient comfortable. They are to decide on stopping further lab work, vitals, and moving to another floor, out of icu for comfort only care. Family has indicated they wanted to stay in the hospital and do not want to go to a hospice facility. They understand pt can decline very suddenly, and is declining. Prognosis could be hours to days. * CODE STATUSalt code-- vent only * Symptoms: == Dysphagia--Status post significant CVA, has had PEG tube placed; no improvement per ST following --prev. trial with a passy mikey valve, patient with no response or attempt to verbalize--intermittently w copoius secretions. Tube Feedings currently on hold. Explained to family that peg tube feedings will worsen secretions. == Dyspnea --Respiratory failure secondary to CVA, status post tracheostomy, pulmonary following; now tachypneic. 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 == Malnutrition--Status post PEG tube placement. currently tolerating TF; having bowel movements,- s/p GJ tube . Multiple episodes of GJ tube clogs, currently functioning well. Some concern of localized infection around site. Now draining again. Talked about tube feedings and cancer, and his current poor nutrition despite tube feedings. 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 Has morphine 1 mg prn for pain, dressing changes etc.Also has Tylenol with Codeine available. Last dose morphine 10/22, last dose Tylenol with codeine . Previously expressed some concern about pre-medicating before dressing changes and transfer for radiation, discussed with nursing utilizing Tylenol with codeine to premedicate. Family amenable to comfort meds for pain and dyspnea now. ==anxiety- prn will be available. * Palliative care will continue to follow during hospital course as condition evolves, to assist patient/decision-maker with understanding of medical conditions, weighing benefits/burdens of treatment options, for clarification of goals of treatment. Additionally will assist with any symptoms of palliative concern Updated. "Addendum" Received call from Dr. Jones. Family has decided the following. Son and daughter Sara decided. As documented in [facility] progress note 04/09. "...they ask to make him palliative with comfort measures on the conditions that : 1) if we can medically feed him, provide him with some feeding. 2) he can remain in his ICU bed for now, 3) we can attempt to pursue liver biopsy for confirmation of the metastatic disease. I let them know that medically, he is not appropriate for tube feeds due to intolerance and the possibility of a tube feed leak around the PEG tube, and they understand. I am not sure if he will remain stable enough to undergo liver biopsy, but I let them know we can entertain that idea and see if he is stable enough to undergo this.Otherwise, at their request, I have discontinued all life-saving measures and pursued comfort care with prn ativan and morphine. " Time Spent Total Floor Time (mins): 40 Face to Face Time (mins): 35 Attestation To help prompt me to consider important information that might be impacting today's encounter and assessment, information from prior notes written by myself or my colleagues may have been "brought forward" into today's note. My signature on this note, however, is an attestation that I personally performed the exam, history, and/or decision-making noted today, and, unless otherwise indicated, the interactions with patient, family, and staff as well as the review of records all occurred today. I also attest that the listed assessment and stated plan reflect my best clinical judgment today based on the combination of historical information, prior notes, and today's exam/ interactions. When time spent is documented, it refers only to time spent today by the signer, or if indicated, combined time spent today by collaborating physician/nurse practitioner. Abhishek Avilez MD Apr 09, 2017 16:57
--- NOTE | 2017-04-09 17:03 | HHI.PR ---
Subjective Remarks low grade temp, ? wound infection ON TTUBE small cell CA of urinary bladder NOW IN ISC Objective Vital Signs Date Time Temp Pulse Resp B/P (MAP) Pulse Ox O2 Delivery O2 Flow Rate FiO2 04/09/17 14:00 109 04/09/17 12:00 100.6 119 40 125/74 (91) 96 04/09/17 12:00 117 04/09/17 10:00 118 04/09/17 08:02 98 T-piece 6.00 40 04/09/17 08:00 106 04/09/17 08:00 98.7 105 41 122/73 (89) 99 04/09/17 07:00 98 T-Piece 28 04/09/17 06:00 114 04/09/17 04:00 108 04/09/17 04:00 98.6 108 32 125/73 (90) 94 04/09/17 02:00 101 04/09/17 00:00 96 04/09/17 00:00 99.5 96 18 119/73 (88) 100 04/08/17 22:00 94 04/08/17 20:23 94 T-piece 40 04/08/17 20:00 112 04/08/17 20:00 101.5 112 37 122/74 (90) 93 04/08/17 19:00 93 T-Piece 28 I/O 04/08/17 04/08/17 04/08/17 04/09/17 04/09/17 04/09/17 06:59 14:59 22:59 06:59 14:59 22:59 Intake Total 5984 ml 405 ml 367 ml 278 ml Output Total 550 ml 450 ml 850 ml Balance 5984 ml -145 ml -83 ml -572 ml Intake Oral 0 ml IV Total 5453 ml 100 ml Tube Feeding 531 ml 267 ml 278 ml Packed Cells 400 ml Blood Product IV Normal Saline Flush 5 ml Output Urine Total 550 ml 450 ml 850 ml Bladder Scan Volume Amount 999 ml Result Diagram: 04/09/1743904/09/17 044 Procedures 07/22/2016 Wide excision of sacral skin wound, biopsy of the cavity lining and debridement. PEG removal and Gj tube placement 07/29/16 VAC changes- M-W-F 10/23/16, 11/18, 12/31- GJ tube replacement 01/02/16 PEG placement 01/02/16 tracheostomy 02/25/17 PEG replacement 03/03/17 Cystoscopy and palliative transurethral resection of bladder tumor greater than 5cm originating from the right bladder wall Objective Remarks GENERAL: SKIN: Warm and dry. HEAD: Atraumatic. Normocephalic. EYES: Pupils equal and round. No scleral icterus. No injection or drainage. ENT: No nasal bleeding or discharge. Mucous membranes pink and moist. NECK: Trachea midline. No JVD. CARDIOVASCULAR: Regular rate and rhythm. RESPIRATORY: No accessory muscle use. Clear to auscultation. Breath sounds equal bilaterally. GASTROINTESTINAL: Abdomen soft, non-tender, nondistended. Hepatic and splenic margins not palpable. MUSCULOSKELETAL: Extremities without clubbing, cyanosis, or edema. No obvious deformities. NEUROLOGICAL: Awake and alert. No obvious cranial nerve deficits. Motor grossly within normal limits. Five out of 5 muscle strength in the arms and legs. Normal speech. PSYCHIATRIC: Appropriate mood and affect; insight and judgment normal. Laboratory Tests Test 01/05/17 01/06/17 08:35 08:41 Red Blood Count 4.43 MIL/MM3 (4.50-5.90) Hemoglobin 9.9 GM/DL (13.0-17.0) Hematocrit 32.0 % (39.0-51.0) Mean Corpuscular Volume 72.1 FL (80.0-100.0) Mean Corpuscular Hemoglobin 22.3 PG (27.0-34.0) Mean Corpuscular Hemoglobin 30.9 % Concent (32.0-36.0) Red Cell Distribution Width 19.9 % (11.6-17.2) Sodium Level 134 MEQ/L 133 MEQ/L (136-145) (136-145) Random Glucose 136 MG/DL 132 MG/DL (74-106) (74-106) Creatinine 0.59 MG/DL (0.60-1.30) GENERAL: SKIN: Warm and dry. HEAD: Atraumatic. Normocephalic. EYES: Pupils equal and round. No scleral icterus. No injection or drainage. ENT: No nasal bleeding or discharge. Mucous membranes pink and moist. NECK: Trachea midline. No JVD. TRACH. [place] CARDIOVASCULAR: Regular rate and rhythm. RESPIRATORY: No accessory muscle use. Clear to auscultation. Breath sounds equal bilaterally. GASTROINTESTINAL: Abdomen soft, non-tender, nondistended. Hepatic and splenic margins not palpable. MUSCULOSKELETAL: Extremities without clubbing, cyanosis, or edema. No obvious deformities. NEUROLOGICAL: Awake and alert. No obvious cranial nerve deficits. Motor grossly within normal limits. Five out of 5 muscle strength in the arms and legs. Normal speech. PSYCHIATRIC: Appropriate mood and affect; insight and judgment normal. 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 TOILET Brandon Taylor MD Apr 09, 2017 17:03
[2017-04-09] MEDS: PARoxetine HCL SUSP 20 MG/10 ML UDC PEG SCH (17:45)
[2017-04-09] MEDS: MORPHINE SULFATE 4 MG/ML INJ IV PUSH SCH ×2 (20:51→23:52)
[2017-04-09] MEDS: LORazepam 2 MG/ML VIAL IV PUSH SCH ×2 (20:51→23:52)
[2017-04-10] VITALS (11 sets, daily range): BP systolic 61–84; BP diastolic 39–53; PULSE 83–128; RESP 5–25; TEMP 99.1–103.3; O2SAT 82–98
[2017-04-10] MEDS: LORazepam 2 MG/ML VIAL IV PUSH SCH ×6 (04:08→23:29)
[2017-04-10] MEDS: MORPHINE SULFATE 4 MG/ML INJ IV PUSH SCH ×6 (04:09→23:30)
[2017-04-10] MEDS: HYOSCYAMINE 0.125 MG TAB PEG SCH ×3 (06:00→20:26)
[2017-04-10] MEDS: ARTIFICIAL TEARS OPTH SOLN 15 ML BTL EACH EYE SCH ×2 (09:05→20:26)
[2017-04-10] MEDS: MORPHINE SULFATE 4 MG/ML INJ IV PUSH PRN ×3 (10:26→12:05)
[2017-04-10] MEDS: LORazepam 2 MG/ML VIAL IV PUSH PRN ×10 (10:51→17:50)
[2017-04-10] MEDS: MORPHINE SULFATE 8 MG/ML INJ IV PUSH PRN ×8 (11:21→17:49)
--- NOTE | 2017-04-10 13:03 | HHI.CCPN ---
Subjective Remarks/Hospital Course 59year-old male with past medical history of paroxysmal atrial fibrillation, hypertension, stage IIIa non-Hodgkin's lymphoma (s/p chemotherapy with Rituxan, [facility] 2014) presented to [facility] emergency department on 12/20 with altered mental status. When he woke up of 4 o'clock, the patient had some right facial droop associated with headaches. CT scan of the brain showed no focal or acute intracranial hemorrhage. However, there is an new area of decreased density in the left occipital lobe, suggestive of recent non hemorrhagic infarction and a decreased density in the previously noted right occipital lobe which had increased in size. The patient was recently admitted on December 06 with similar presentation and he had a right occipital juan jose hole brain biopsy done by Dr. Marin on December 13. The pathology results showed acute infarction without evidence of lymphoma. On this admission, the patient became obtunded, had sonorous respirations and can would not follow any commands. He was subsequently intubated by the emergency department physician. MRI of the brain was obtained which showed a new area of restricted diffusion within the left occipital lobe suggesting acute infarction. EKG on arrival showed A-fib with RVR at rate of 114 beats per minute. Pertinent ICU Course: 12/22/15: No events overnight. Sedated with Diprivan and intubated. For MRA brain , carotids and MRV brain today . 12/22: Patient remains intubated, off sedation. 12/23: No events overnight. Remains off sedation. Withdraws to pain. 12/24: Remains intubated, on no sedation. For repeat MRI brain today 12/25: Tolerated PSV for 4-5 hour yesterday. 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 12/26: Tolerating PSV. Opens eyes to voice, reportedly has been blinking to command but isn't doing so currently even when family encouraging him. 12/27: Continues to tolerate PSV. Follows commands via ocular movements. Weak withdraw LUE noxious stimuli. 12/28: Tolerating PSV 04/24. Family desires trach - warfarin placed on hold. MRI today per neurology. 12/29: Tolerating tube feeds. INR 2.2. Sputum culture with pansensitive klebsiella. 12/30: No neuro change. Continues to tolerate PSV 12/31: General surgery and GI planning trach / PEG tomorrow. Has low grade temp 100.2. 01/01: On full vent support. No significant neurologic changes. s/p bedside Trach and PEG. 01/02: Resuming PSV trials. Restart tube feeds. 01/03; On continuous trach collar since yesterday evening. No significant secretions. 01/04 No events overnight. Patient has been on TP's x 2 days currently on 28% FIO2. T: 100.5 last night. 01/09 Reconsult: Halicat was called as patient was found hypoxic with sats 70%, tachycardic HR 140's patient was subsequently transferred to [facility] and placed back on ventilator. Trach changed to size #6 XLT. Patient was found to have fever with T 102.1. CXR this afternoon showed mild chronic parenchymal changes. He was noted to have some bloody secretions from trach last 2 days. 01/10 Patient Patient is sedated with Diprivan and on ventilator via trach. Had T :102.5 at midnight. CTA chest last night showed no PE, CT brain no acute findings. 01/11 Patient remains on ventilator via trach and on Fentanyl infusion for sedation. T:99.8 01/12 Patient has been on CPAP 10/5 with 35% FIO2 overnight. Afebrile, tolerating tube feeds. 01/13 Patient remains on CPAP overnight. Afebrile. 01/14 Patient tolerated TP's all day yesterday placed on CPAP PS 5/PEEP:5 with 35 % FIO2 overnight. Afebrile. 01/15: Tolerated TP several hours yesterday, CPAP at night. No acute events overnight 01/16: Remained on TPs last 24 hours. No acute events reported last night. Discussed with ID yesterday because of clinical improvement continuing cefepime 01/17: Afebrile. On T piece 60 hours. J-tube currently plugged. Will ask IR if they can intervene. Tolerating tube feeding otherwise. Positive BM. 01/18: Afebrile. On TPs 84 hours. J-tube was unplugged yesterday. Recommended tube feeding through G-tube only. Medications per G-tube. Neurologically unchanged 01/19 - low-grade fevers overnight currently 100. On TPs greater than 100 hours. Tolerating tube feeding. Neurologically unchanged. 01/21/16 No events overbright. On TP's with 35-50% FIO2. Afebrile. 04/08/2017: reconsulted for tachypnea and possible sepsis. patient was seen and evaluated by Dr. Kenny overnight and felt to be stable to remain on the floor. Today, persistent tachypnea and tachycardia, although no desaturation or change in condition. Patient well-known to the [employer] service and has had no mental status change or neurologic improvements in over 1 year. Patient now with evidence of likely wide-spread metastatses to the liver along with multiple other active medical problems. The patient on my exam today appears unchanged over months. he is tachypneic and tachycardic, although not diaphoretic. fever curve is low and he is growing resistant PSAE in the sputum which is being covered. the patient is unable to provide any information due to his clinical condition. family continues to press for aggressive measures in this patient with no hope for meaningful recovery, both neurologic and oncologic. 04/09: no changes. still tachypneic and tachycardic. multiple long family discussions today with son and daughter who are medical decision-makers. last night patient was made full DNR. Today they ask to make him palliative with comfort measures on the conditions that: 1) if we can medically feed him, provide him with some feeding. 2) he can remain in his ICU bed for now, 3) we can attempt to pursue liver biopsy for confirmation of the metastatic disease. I let them know that medically, he is not appropriate for tube feeds due to intolerance and the possibility of a tube feed leak around the PEG tube, and they understand. I am not sure if he will remain stable enough to undergo liver biopsy, but I let them know we can entertain that idea and see if he is stable enough to undergo this.Otherwise, at their request, I have discontinued all life-saving measures and pursued comfort care with prn ativan and morphine. 04/10: transition to comfort measures done overnight. patient appears comfortable on my assessment, although remains tachycardic and in slight distress. RN at bedside treating distress on my evaluation. too unstable today to pursue liver biopsy. Objective Vital Signs Date Time Temp Pulse Resp B/P (MAP) Pulse Ox O2 Delivery O2 Flow Rate FiO2 04/10/17 12:00 114 04/10/17 12:00 99.1 12 73/52 (59) 95 04/10/17 09:07 T-piece 6.00 28 Intake and Output 04/10/17 04/10/17 04/10/17 07:59 15:59 23:59 Output Total 400 ml Balance -400 ml Result Diagram: 04/09/170 04/09/17 0440 Imaging Last Impressions Chest X-Ray 01/20/17 0600 Signed Impressions: Service Date/Time: Friday, January 20, 2017 04:22 - CONCLUSION: 1. Bibasilar patchy densities, unchanged. 2. Tracheostomy tube unchanged. Mikie Vargas MD Head CT 01/09/17 0000 Signed Impressions: Service Date/Time: December 17:43 - CONCLUSION: 1. No acute hemorrhage or mass effect. 2. 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 3. Atrophy. Gerald Mukherjee MD CT Angiography 01/09/17 0000 Signed Impressions: Service Date/Time: December 17:49 - CONCLUSION: 1. No evidence of pulmonary emboli. 2. Patchy consolidation in both posterior lower lobes right greater than left. This could represent pneumonia. 3. 2 small noncalcified pulmonary nodules which are nonspecific finding. Short-term CT followup is recommended beginning in 6 months with a noncontrast outpatient CT. Gerald Mukherjee MD Tube Change 12/31/16 0000 Signed Impressions: Service Date/Time: Saturday, December 31, 2016 16:35 - CONCLUSION: Uncomplicated gastrojejunostomy tube exchange as above. Moises Ramírez MD Tube Check 12/04/16 0000 Signed Impressions: Service Date/Time: Sunday, December 04, 2016 17:58 - CONCLUSION: Uncomplicated tube injection as above. the tube is in good position and functions normally. Moises Ramírez MD Abdomen X-Ray 08/31/16 0000 Signed Impressions: Service Date/Time: Wednesday, August 31, 2016 16:36 - CONCLUSION: 1. No acute findings. Mild constipation. Durga Dotson MD Abdomen/Pelvis CT 04/12/16 0000 Signed Impressions: Service Date/Time: Tuesday, April 12, 2016 20:52 - CONCLUSION: 1. 6.4 cm necrotic mass or abscess in the soft tissues posteriorly just below the sacrum associated with some bony destructive change of the lower most sacrum and coccyx with inflammatory changes extending into the ischiorectal fossa and into the presacral retroperitoneum predominantly on the left side. There is associated fairly marked mural thickening of the anal verge and rectum. 2. There is gastrostomy and Arevalo catheter present. Stable abdominal aortic aneurysm. Durga Dotson MD Head Magnetic Resonance Angiography 03/05/16 0000 Signed Impressions: Service Date/Time: Saturday, March 05, 2016 09:26 - CONCLUSION: Persistent high-grade subtotal occlusive stenotic lesions in the distal right vertebral artery and proximal basilar artery with significant improvement in flow and recanalization following initial presentation of thrombosis. Stable interstitial circulation without significant stenosis. Ernesto Kulkarni MD Brain MRI 03/05/16 0000 Signed Impressions: Service Date/Time: Saturday, March 05, 2016 09:26 - CONCLUSION: Evolving brainstem and bilateral occipital lobe infarcts with evidence of subacute hemorrhagic products. There is decreasing restricted diffusion and increasing loss of volume characteristic of a subacute to chronic infarct. No evidence of acute infarct, acute hemorrhage mass or edema. Ernesto Kulkarni MD Neck Magnetic Resonance Angiography 12/22/15 1445 Signed Impressions: Service Date/Time: Tuesday, December 22, 2015 09:22 - CONCLUSION: Variant origin of the left vertebral artery from the aortic arch. No evidence of carotid stenosis. Glen Zamora MD Head/Brain Mag Res Venography 12/22/15 0000 Signed Impressions: Service Date/Time: Tuesday, December 22, 2015 09:22 - CONCLUSION: Normal MRV. Jonel Jones Jr., MD Objective Remarks GENERAL: middle-aged cachectic male, currently resting in bed on TP via trach in respiratory distress. SKIN: Warm and dry. No rash. Decubitus sacral ulcer HEAD: Normocephalic. EYES: No scleral icterus. No injection or drainage. NECK: trachea midline. No JVD. Tracheostomy CARDIOVASCULAR: Tachycardic, RR. RESPIRATORY: tachypneic, in distress. equal chest rise. GASTROINTESTINAL: Abdomen soft, non-tender, nondistended. GJ tube with ?tube feeds around insertion site. MUSCULOSKELETAL: No significant peripheral edema. Neuro: On no sedation. Eyes are open, do not track. Withdraws lower extremities to pain only Procedures 07/22/2016 Wide excision of sacral skin wound, biopsy of the cavity lining and debridement. PEG removal and Gj tube placement 07/29/16 VAC changes- M-W-F 10/23/16, 11/18, 12/31- GJ tube replacement 01/02/16 PEG placement 01/02/16 tracheostomy 02/25/17 PEG replacement 03/03/17 Cystoscopy and palliative transurethral resection of bladder tumor greater than 5cm originating from the right bladder wall Date of Insertion: Mar 03, 2017 A/P Assessment and Plan Assessment: 61yM with non-Hodgkins lymphoma, devastating CVA with persistent vegetative state, bladder cancer, and likely widely metastatic disease to the liver, chronic respiratory failure, acute on chronic renal insufficiency who presents to the ICU for concerns over possible sepsis secondary to presumably pseudomonas health-care associated pneumonia. Overall, terminal patient with no improvements after greater than 1 year. At the family's request, will pursue comfort measures. d/c all meds and add prn morphine and ativan. I will talk with radiology about the possibility of liver biopsy, but he may not be stable enough to undergo such an intervention. 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 - prn ativan/morphine for terminal withdraw of care. Pulmonary: Chronic Respiratory failure Right upper lobe/right middle lobe pulmonary nodules - outpatient CT scan without contrast in 6 months to follow-up Continue with oxygen keep sat >90%. Duo nebs every 6 hours Pulm toilet, trach care Pulm is following- Dr. Taylor - does not require mechanical ventilation currently. morphine to prevent air hunger/tachypnea. CV: History of paroxysmal atrial fibrillation currently in sinus tachycardia Hypertension Dyslipidemia Monitor HR and BP keep MAP>65mmHg. O Continue ASA 325mg daily, Cardizem 30mg QID will try small dose of propranolol 10mg po q8h stop telemetry. vitals qShift Renal//FEN: Acute kidney injury on chronic renal insufficiency Monitor renal function, Accurate I/O's electrolytes replacement if indicated keep ivf as ordered, mivf @ 65 cc/hr. GI: Mild protein calorie malnutrition Gastroesophageal reflux disease On Protonix Tube feeds J-tube followed by GI Hold tube feeds for current intolerance with ? tube feeds around g-tube site. ID: Klebsiella/Pseudomonas/staph aureus HCAP possible sepsis Continue abx per ID send procalcitonin d/c abx. Heme: Microcytic anemia Stage III a non-Hodgkin's lymphoma Bladder cancer - not stable for XRT. Endo: History of diabetes mellitus On SSI (low scale) for glycemic control Stage IV decubitus ulcers Dressing changes daily Management per wound care GI prophylaxis with Protonix 40mg Q12 DVT prophylaxis with SCD and Heparin SQ Dispo: remain in the ICU at the family's request. Palliative continues to be involved. yLndon Navarro MD Apr 10, 2017 13:03
--- NOTE | 2017-04-10 14:20 | PD.WCN.NOT ---
Wound Consult Description: Follow up of wound to sacrum Communicated with: CHAPITO Corrigan Recommendation: Comfort measures. Additional Information: Attempted to see patient this morning on 3 . Spoke with CHAPITO Corrigan regarding the dressing change she performed earlier. Patient has family members in room and it was explained to content writer that this was not a good time to evaluate the wound. Ting Richards [facility] Apr 10, 2017 14:20
--- NOTE | 2017-04-10 16:01 | HHI.PR ---
Subjective Remarks low grade temp, ? wound infection ON TTUBE small cell CA of urinary bladder NOW UNDER HOSPICE CARE Objective Vital Signs Date Time Temp Pulse Resp B/P (MAP) Pulse Ox O2 Delivery O2 Flow Rate FiO2 04/10/17 14:00 114 04/10/17 12:00 114 04/10/17 12:00 99.1 115 12 73/52 (59) 95 04/10/17 11:42 6 04/10/17 10:00 125 04/10/17 09:07 94 T-piece 6.00 28 04/10/17 08:00 116 04/10/17 08:00 99.1 116 21 84/53 (63) 92 04/10/17 07:00 99 T-Piece 28 04/10/17 06:00 112 04/10/17 04:00 114 04/09/17 22:00 120 04/09/17 22:00 120 04/09/17 20:00 93 T-Piece 28 04/09/17 20:00 99.1 119 35 115/73 (87) 93 04/09/17 18:00 118 04/09/17 16:00 118 04/09/17 16:00 101.0 115 42 125/69 (87) 94 I/O 04/09/17 04/09/17 04/09/17 04/10/17 04/10/17 04/10/17 07:00 15:00 23:00 07:00 15:00 23:00 Intake Total 278 ml 732 ml Output Total 850 ml 1100 ml 400 ml Balance -572 ml -368 ml -400 ml Tube Feeding 278 ml 532 ml Tube Irrigant 200 ml Output Urine Total 850 ml 1100 ml 400 ml # Bowel Movements 0 Result Diagram: 04/09/17 0440 04/09/17 0440 Procedures 07/22/2016 Wide excision of sacral skin wound, biopsy of the cavity lining and debridement. PEG removal and Gj tube placement 07/29/16 VAC changes- M-W-F 10/23/16, 11/18, 12/31- GJ tube replacement 01/02/16 PEG placement 01/02/16 tracheostomy 02/25/17 PEG replacement 03/03/17 Cystoscopy and palliative transurethral resection of bladder tumor greater than 5cm originating from the right bladder wall Objective Remarks GENERAL: SKIN: Warm and dry. HEAD: Atraumatic. Normocephalic. EYES: Pupils equal and round. No scleral icterus. No injection or drainage. ENT: No nasal bleeding or discharge. Mucous membranes pink and moist. NECK: Trachea midline. No JVD. CARDIOVASCULAR: Regular rate and rhythm. RESPIRATORY: No accessory muscle use. Clear to auscultation. Breath sounds equal bilaterally. GASTROINTESTINAL: Abdomen soft, non-tender, nondistended. Hepatic and splenic margins not palpable. MUSCULOSKELETAL: Extremities without clubbing, cyanosis, or edema. No obvious deformities. NEUROLOGICAL: Awake and alert. No obvious cranial nerve deficits. Motor grossly within normal limits. Five out of 5 muscle strength in the arms and legs. Normal speech. PSYCHIATRIC: Appropriate mood and affect; insight and judgment normal. Laboratory Tests Test 01/05/17 01/06/17 08:35 08:41 Red Blood Count 4.43 MIL/MM3 (4.50-5.90) Hemoglobin 9.9 GM/DL (13.0-17.0) Hematocrit 32.0 % (39.0-51.0) Mean Corpuscular Volume 72.1 FL (80.0-100.0) Mean Corpuscular Hemoglobin 22.3 PG (27.0-34.0) Mean Corpuscular Hemoglobin 30.9 % Concent (32.0-36.0) Red Cell Distribution Width 19.9 % (11.6-17.2) Sodium Level 134 MEQ/L 133 MEQ/L (136-145) (136-145) Random Glucose 136 MG/DL 132 MG/DL (74-106) (74-106) Creatinine 0.59 MG/DL (0.60-1.30) GENERAL: SKIN: Warm and dry. HEAD: Atraumatic. Normocephalic. EYES: Pupils equal and round. No scleral icterus. No injection or drainage. ENT: No nasal bleeding or discharge. Mucous membranes pink and moist. NECK: Trachea midline. No JVD. TRACH. [place] CARDIOVASCULAR: Regular rate and rhythm. RESPIRATORY: No accessory muscle use. Clear to auscultation. Breath sounds equal bilaterally. GASTROINTESTINAL: Abdomen soft, non-tender, nondistended. Hepatic and splenic margins not palpable. MUSCULOSKELETAL: Extremities without clubbing, cyanosis, or edema. No obvious deformities. NEUROLOGICAL: Awake and alert. No obvious cranial nerve deficits. Motor grossly within normal limits. Five out of 5 muscle strength in the arms and legs. Normal speech. PSYCHIATRIC: Appropriate mood and affect; insight and judgment normal. 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 TOILET HOSPICE CARE OUTLOOK POOR WILL SIGN OFF SEE Brandon Mcintyre MD Apr 10, 2017 16:01
[2017-04-10] MEDS: ACETAMINOPHEN 650 MG/20.3 ML UDC TUBE PRN (20:26)
[2017-04-11] VITALS (7 sets, daily range): BP systolic 63–72; BP diastolic 41–45; PULSE 92–130; RESP 19–24; TEMP 98.6–101.1; O2SAT 92–96
[~2017-04-11] VITALS: Ht 167.6 cm; Wt 89.0 kg
--- NOTE | 2017-04-11 03:28 | HHI.CCPN ---
Subjective Remarks/Hospital Course 59year-old male with past medical history of paroxysmal atrial fibrillation, hypertension, stage IIIa non-Hodgkin's lymphoma (s/p chemotherapy with Rituxan, [facility] 2014) presented to [facility] emergency department on 12/20 with altered mental status. When he woke up of 4 o'clock, the patient had some right facial droop associated with headaches. CT scan of the brain showed no focal or acute intracranial hemorrhage. However, there is an new area of decreased density in the left occipital lobe, suggestive of recent non hemorrhagic infarction and a decreased density in the previously noted right occipital lobe which had increased in size. The patient was recently admitted on December 06 with similar presentation and he had a right occipital juan jose hole brain biopsy done by Dr. Marin on December 13. The pathology results showed acute infarction without evidence of lymphoma. On this admission, the patient became obtunded, had sonorous respirations and can would not follow any commands. He was subsequently intubated by the emergency department physician. MRI of the brain was obtained which showed a new area of restricted diffusion within the left occipital lobe suggesting acute infarction. EKG on arrival showed A-fib with RVR at rate of 114 beats per minute. Pertinent ICU Course: 12/22/15: No events overnight. Sedated with Diprivan and intubated. For MRA brain , carotids and MRV brain today . 12/22: Patient remains intubated, off sedation. 12/23: No events overnight. Remains off sedation. Withdraws to pain. 12/24: Remains intubated, on no sedation. For repeat MRI brain today 12/25: Tolerated PSV for 4-5 hour yesterday. 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 12/26: Tolerating PSV. Opens eyes to voice, reportedly has been blinking to command but isn't doing so currently even when family encouraging him. 12/27: Continues to tolerate PSV. Follows commands via ocular movements. Weak withdraw LUE noxious stimuli. 12/28: Tolerating PSV 04/24. Family desires trach - warfarin placed on hold. MRI today per neurology. 12/29: Tolerating tube feeds. INR 2.2. Sputum culture with pansensitive klebsiella. 12/30: No neuro change. Continues to tolerate PSV 12/31: General surgery and GI planning trach / PEG tomorrow. Has low grade temp 100.2. 01/01: On full vent support. No significant neurologic changes. s/p bedside Trach and PEG. 01/02: Resuming PSV trials. Restart tube feeds. 01/03; On continuous trach collar since yesterday evening. No significant secretions. 01/04 No events overnight. Patient has been on TP's x 2 days currently on 28% FIO2. T: 100.5 last night. 01/09 Reconsult: Halicat was called as patient was found hypoxic with sats 70%, tachycardic HR 140's patient was subsequently transferred to [facility] and placed back on ventilator. Trach changed to size #6 XLT. Patient was found to have fever with T 102.1. CXR this afternoon showed mild chronic parenchymal changes. He was noted to have some bloody secretions from trach last 2 days. 01/10 Patient Patient is sedated with Diprivan and on ventilator via trach. Had T :102.5 at midnight. CTA chest last night showed no PE, CT brain no acute findings. 01/11 Patient remains on ventilator via trach and on Fentanyl infusion for sedation. T:99.8 01/12 Patient has been on CPAP 10/5 with 35% FIO2 overnight. Afebrile, tolerating tube feeds. 01/13 Patient remains on CPAP overnight. Afebrile. 01/14 Patient tolerated TP's all day yesterday placed on CPAP PS 5/PEEP:5 with 35 % FIO2 overnight. Afebrile. 01/15: Tolerated TP several hours yesterday, CPAP at night. No acute events overnight 01/16: Remained on TPs last 24 hours. No acute events reported last night. Discussed with ID yesterday because of clinical improvement continuing cefepime 01/17: Afebrile. On T piece 60 hours. J-tube currently plugged. Will ask IR if they can intervene. Tolerating tube feeding otherwise. Positive BM. 01/18: Afebrile. On TPs 84 hours. J-tube was unplugged yesterday. Recommended tube feeding through G-tube only. Medications per G-tube. Neurologically unchanged 01/19 - low-grade fevers overnight currently 100. On TPs greater than 100 hours. Tolerating tube feeding. Neurologically unchanged. 01/21/16 No events overbright. On TP's with 35-50% FIO2. Afebrile. 04/08/2017: reconsulted for tachypnea and possible sepsis. patient was seen and evaluated by Dr. Kenny overnight and felt to be stable to remain on the floor. Today, persistent tachypnea and tachycardia, although no desaturation or change in condition. Patient well-known to the [employer] and has had no mental status change or neurologic improvements in over 1 year. Patient now with evidence of likely wide-spread metastatses to the liver along with multiple other active medical problems. The patient on my exam today appears unchanged over months. he is tachypneic and tachycardic, although not diaphoretic. fever curve is low and he is growing resistant PSAE in the sputum which is being covered. the patient is unable to provide any information due to his clinical condition. family continues to press for aggressive measures in this patient with no hope for meaningful recovery, both neurologic and oncologic. 04/09: no changes. still tachypneic and tachycardic. multiple long family discussions today with son and daughter who are medical decision-makers. last night patient was made full DNR. Today they ask to make him palliative with comfort measures on the conditions that: 1) if we can medically feed him, provide him with some feeding. 2) he can remain in his ICU bed for now, 3) we can attempt to pursue liver biopsy for confirmation of the metastatic disease. I let them know that medically, he is not appropriate for tube feeds due to intolerance and the possibility of a tube feed leak around the PEG tube, and they understand. I am not sure if he will remain stable enough to undergo liver biopsy, but I let them know we can entertain that idea and see if he is stable enough to undergo this.Otherwise, at their request, I have discontinued all life-saving measures and pursued comfort care with prn ativan and morphine. 04/10: transition to comfort measures done overnight. patient appears comfortable on my assessment, although remains tachycardic and in slight distress. RN at bedside treating distress on my evaluation. too unstable today to pursue liver biopsy. 04/11: remains comfortable. frequent morphine and ativan use. febrile which responded to tylenol. Objective Vital Signs Date Time Temp Pulse Resp B/P (MAP) Pulse Ox O2 Delivery O2 Flow Rate FiO2 04/11/17 02:00 128 04/11/17 00:00 99.7 24 70/42 (51) 94 04/10/17 19:00 T-Piece 28 04/10/17 09:07 6.00 Result Diagram: 04/09/17 0440 04/09/17 0440 Imaging Last Impressions Chest X-Ray 01/20/17 0600 Signed Impressions: Service Date/Time: Friday, January 20, 2017 04:22 - CONCLUSION: 1. Bibasilar patchy densities, unchanged. 2. Tracheostomy tube unchanged. Mikie Vragas MD Head CT 01/09/17 0000 Signed Impressions: Service Date/Time: December 17:43 - CONCLUSION: 1. No acute hemorrhage or mass effect. 2. 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 3. Atrophy. Gerald Mukherjee MD CT Angiography 01/09/17 0000 Signed Impressions: Service Date/Time: December 17:49 - CONCLUSION: 1. No evidence of pulmonary emboli. 2. Patchy consolidation in both posterior lower lobes right greater than left. This could represent pneumonia. 3. 2 small noncalcified pulmonary nodules which are nonspecific finding. Short-term CT followup is recommended beginning in 6 months with a noncontrast outpatient CT. Gerald Mukherjee MD Tube Change 12/31/16 0000 Signed Impressions: Service Date/Time: Saturday, December 31, 2016 16:35 - CONCLUSION: Uncomplicated gastrojejunostomy tube exchange as above. Moises Ramírez MD Tube Check 12/04/16 0000 Signed Impressions: Service Date/Time: Sunday, December 04, 2016 17:58 - CONCLUSION: Uncomplicated tube injection as above. the tube is in good position and functions normally. Moises Ramírez MD Abdomen X-Ray 08/31/16 0000 Signed Impressions: Service Date/Time: Wednesday, August 31, 2016 16:36 - CONCLUSION: 1. No acute findings. Mild constipation. Durga Dotson MD Abdomen/Pelvis CT 04/12/16 0000 Signed Impressions: Service Date/Time: Tuesday, April 12, 2016 20:52 - CONCLUSION: 1. 6.4 cm necrotic mass or abscess in the soft tissues posteriorly just below the sacrum associated with some bony destructive change of the lower most sacrum and coccyx with inflammatory changes extending into the ischiorectal fossa and into the presacral retroperitoneum predominantly on the left side. There is associated fairly marked mural thickening of the anal verge and rectum. 2. There is gastrostomy and Arevalo catheter present. Stable abdominal aortic aneurysm. Durga Dotson MD Head Magnetic Resonance Angiography 03/05/16 0000 Signed Impressions: Service Date/Time: Saturday, March 05, 2016 09:26 - CONCLUSION: Persistent high-grade subtotal occlusive stenotic lesions in the distal right vertebral artery and proximal basilar artery with significant improvement in flow and recanalization following initial presentation of thrombosis. Stable interstitial circulation without significant stenosis. Ernesto Kulkarni MD Brain MRI 03/05/16 0000 Signed Impressions: Service Date/Time: Saturday, March 05, 2016 09:26 - CONCLUSION: Evolving brainstem and bilateral occipital lobe infarcts with evidence of subacute hemorrhagic products. There is decreasing restricted diffusion and increasing loss of volume characteristic of a subacute to chronic infarct. No evidence of acute infarct, acute hemorrhage mass or edema. Ernesto Kulkarni MD Neck Magnetic Resonance Angiography 12/22/15 1445 Signed Impressions: Service Date/Time: Tuesday, December 22, 2015 09:22 - CONCLUSION: Variant origin of the left vertebral artery from the aortic arch. No evidence of carotid stenosis. Glen Zamora MD Head/Brain Mag Res Venography 12/22/15 0000 Signed Impressions: Service Date/Time: Tuesday, December 22, 2015 09:22 - CONCLUSION: Normal MRV. Jonel Jones Jr., MD Objective Remarks GENERAL: middle-aged cachectic male, currently resting in bed, slightly tachypneic but comfortable. SKIN: Warm and dry. No rash. Decubitus sacral ulcer HEAD: Normocephalic. EYES: No scleral icterus. No injection or drainage. NECK: trachea midline. No JVD. Tracheostomy CARDIOVASCULAR: Tachycardic, RR. RESPIRATORY: tachypneic, not in distress. GASTROINTESTINAL: Abdomen soft, non-tender, nondistended. MUSCULOSKELETAL: No significant peripheral edema. Neuro: RASS -3. Procedures 07/22/2016 Wide excision of sacral skin wound, biopsy of the cavity lining and debridement. PEG removal and Gj tube placement 07/29/16 VAC changes- M-W-F 10/23/16, 11/18, 12/31- GJ tube replacement 01/02/16 PEG placement 01/02/16 tracheostomy 02/25/17 PEG replacement 03/03/17 Cystoscopy and palliative transurethral resection of bladder tumor greater than 5cm originating from the right bladder wall Date of Insertion: Mar 03, 2017 A/P Assessment and Plan Assessment: 61yM with non-Hodgkins lymphoma, devastating CVA with persistent vegetative state, bladder cancer, and likely widely metastatic disease to the liver, chronic respiratory failure, acute on chronic renal insufficiency who presents to the ICU for concerns over possible sepsis secondary to presumably pseudomonas health-care associated pneumonia. Overall, terminal patient with no improvements after greater than 1 year. At the family's request, will pursue comfort measures. d/c all meds and add prn morphine and ativan. too unstable to undergo biopsy. palliation. 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 - prn ativan/morphine for terminal withdraw of care. Pulmonary: Chronic Respiratory failure Right upper lobe/right middle lobe pulmonary nodules - outpatient CT scan without contrast in 6 months to follow-up Continue with oxygen keep sat >90%. Duo nebs every 6 hours Pulm toilet, trach care Pulm is following- Dr. Taylor - does not require mechanical ventilation currently. morphine to prevent air hunger/tachypnea. CV: History of paroxysmal atrial fibrillation currently in sinus tachycardia Hypertension Dyslipidemia Monitor HR and BP keep MAP>65mmHg. O Continue ASA 325mg daily, Cardizem 30mg QID will try small dose of propranolol 10mg po q8h stop telemetry. vitals qShift Renal//FEN: Acute kidney injury on chronic renal insufficiency Monitor renal function, Accurate I/O's electrolytes replacement if indicated keep ivf as ordered, mivf @ 65 cc/hr. GI: Mild protein calorie malnutrition Gastroesophageal reflux disease On Protonix Tube feeds J-tube followed by GI Hold tube feeds for current intolerance with ? tube feeds around g-tube site. ID: Klebsiella/Pseudomonas/staph aureus HCAP possible sepsis Continue abx per ID send procalcitonin d/c abx. Heme: Microcytic anemia Stage III a non-Hodgkin's lymphoma Bladder cancer - not stable for XRT. Endo: History of diabetes mellitus On SSI (low scale) for glycemic control Stage IV decubitus ulcers Dressing changes daily Management per wound care GI prophylaxis with Protonix 40mg Q12 DVT prophylaxis with SCD and Heparin SQ Dispo: remain in the ICU at the family's request. Palliative continues to be involved. Lyndon Navarro MD Apr 11, 2017 03:28
[2017-04-11] MEDS: MORPHINE SULFATE 4 MG/ML INJ IV PUSH SCH ×3 (04:09→11:40)
[2017-04-11] MEDS: LORazepam 2 MG/ML VIAL IV PUSH SCH ×3 (04:09→11:40)
[2017-04-11] MEDS: HYOSCYAMINE 0.125 MG TAB PEG SCH (05:20)
[2017-04-11] MEDS: ARTIFICIAL TEARS OPTH SOLN 15 ML BTL EACH EYE SCH (08:29)
[~2017-04-11 14:50] MED LIST: ACET650S TUBE; ACETAMINOPHEN 325 MG TAB PO ONE; ACETAMINOPHEN/HYDROcodone 325 MG/5 MG TAB PEG SCH; ACETAMINOPHEN/HYDROcodone 325 MG/5 MG TAB PO PRN; ACETAMINOPHEN/HYDROcodone 325 MG/5 MG TAB PO SCH; ACETIC ACID 0.25% SOLN 1000 ML IRR BTL IRRIGATION SCH; ASCORBIC ACID 500 MG TAB PEG SCH; ASPI325T TUBE; ATOR40TA49 PO; BACI500O2 TOP; BETA80TA PO; BISACODYL 10 MG SUPP RECTAL ONE; CHLORHEXIDINE GLUCONATE 2 % 1 PACK (2 CLOTHS) TOP PRN; CITALOPRAM HYDROBROMIDE 20 MG TAB PEG SCH; CYCLOBENZAPRINE HCL 10 MG TAB PEG PRN; CYCLOBENZAPRINE HCL 10 MG TAB PO SCH; DEXA2TAB PO; DEXA2TAB10 PO; DEXA4TAB PO; DEXTROSE 5% IN WATE 1000ML INJ 1,000 ML IV ONE; DEXTROSE 50% IN WATER 50 ML VIAL(D50) IV PRN; DEXTROSE 50% IN WATER 50 ML VIAL(D50) IV PUSH PRN; DIATRIZOATE MEGLUM/DIATRIZOATE SOD 9 ML CUP PO ONE; DILT31TA PEG; DILTIAZEM HCL 25 MG/5 ML VIAL IV ONE; DILTIAZEM HCL 25 MG/5 ML VIAL ONE; DILTIAZEM HCL 30 MG TAB G-TUBE ONE; DILTIAZEM HCL 30 MG TAB PEG ONE; DILTIAZEM INJ 125 MG in SODIUM CHLORIDE 0.9% INJ 100 ML IV SCH; DILTIAZEM-CD 180 MG CAP ER PO SCH; DO NOT ADM ANY ANTICOAGULANT DRUGS PRN; ENAL20TA81 PO; ESMOLOL HCL 100 MG/10 ML VIAL IV ONE; ETOMIDATE 20 MG/10 ML VIAL ONE; ETOMIDATE 40 MG/20 ML VIAL ONE; FERR300S PO; FERROUS SULFATE 300 MG /5ML UDC PEG SCH; FLUCONAZOLE 200 MG TAB PEG SCH; FREE WATER G-TUBE SCH; FUROSEMIDE 20 MG/2 ML VIAL IV ONE; FUROSEMIDE 20 MG/2 ML VIAL IV PUSH ONE; FUROSEMIDE 40 MG/4 ML VIAL IV PUSH ONE; GADODIAMIDE PF 287 MG/ML 20 ML VIAL (for RAD MRI) IV ONE; GADODIAMIDE PF 287 MG/ML 20 ML VIAL (for RAD MRI) IV PUSH ONE; GADODIAMIDE PF 287 MG/ML 5 ML VIAL (for RAD MRI) IV ONE; GLUCAGON 1 MG/ML VIAL IM/SQ PRN; GLUCAGON 1 MG/ML VIAL OTHER PRN; GLYCERIN ADULT 2 GM SUPP RECTAL ONE; HYOSCYAMINE SOLN 0.125 MG/ML 15 ML BTL PO ONE; INSULIN DETEMIR 100 UNITS/ML VIAL SQ ONE; INSULIN DETEMIR 100 UNITS/ML VIAL SQ SCH; INSULIN HUMAN REGULAR 1,000 UNITS/10 ML VIAL SQ PRN; IODIXANOL 320 MG/ML 50 ML VIAL (for RAD SPEC) J-TUBE ONE; IOHEXOL 350 MG/ML 10 ML VIAL (for RAD DIAG) IV ONE; IOHEXOL 350 MG/ML 10 ML VIAL (for RAD DIAG) IVCONTRAST ONE; IOHEXOL 350 MG/ML 50 ML BTL (for RAD DIAG) G-TUBE ONE; IOHEXOL 350 MG/ML 50 ML BTL (for RAD DIAG) ONE; JUVEPOW3 G-TUBE; KEPP750T PO; KETAMINE HCL 500 MG/5 ML VIAL ONE; LACTULOSE SYRUP 20 GM/30 ML CUP PEG ONE; LACTULOSE SYRUP 20 GM/30 ML CUP PEG PRN; LEVA.63I NEB; LEVALBUTEROL NEB; LEVE250 PO; LEVE500S TUBE; LEVOFLOXACIN 750 MG TAB TUBE SCH; LEVS0.123 G-TUBE; LIDOCAINE 1%/EPINEPHrine 1:100,000 SOLN 20 ML VIAL ONE; LIPI40TA PO; LOPERAMIDE HCL SOLN 2 MG/10 ML UDC PO PRN; LORA-373 PO; LORA.5 PO; LORazepam 2 MG/ML VIAL IV PUSH ONE; LORazepam 2 MG/ML VIAL IV PUSH PRN; MAGNESIUM OXIDE 400 MG TAB PO PRN; MAGNESIUM SULFATE INJ 2 GM in SODIUM CHLORIDE 0.9% INJ 96 ML IV PRN; MAGNESIUM SULFATE INJ 4 GM in SODIUM CHLORIDE 0.9% INJ 92 ML IV PRN; METF500 PO; METOPROLOL TARTRATE 25 MG TAB PO PRN; MIDAZOLAM HCL 2 MG/2 ML VIAL IV PUSH ONE; MIDAZOLAM HCL 2 MG/2 ML VIAL ONE; MIDAZOLAM HCL 5 MG/ML VIAL (1 ML) ONE; MISC INFORMATION OTHER ONE; MISCELLANEOUS NURSING INFORMATION XX SCH; MORPHINE SULFATE 4 MG/ML INJ IV PUSH ONE; NICO21DI2 T-DERMAL; NICO21T TD; OMEP20TA PO; OMEP20TA39 PO; ONDANSETRON HCL 4 MG/2 ML VIAL IV PUSH ONE; ONDANSETRON HCL 4 MG/2 ML VIAL ONE; PARO10S PEG; PEG (High)/E-LYTE SOLN 4000 ML BTL PO ONE; PHARMACY ORDERED LAB ONE; PHARMACY ORDERED LAB XX ONE; PILL SPLITTER OTHER PRN; POLYETHYLENE GLYCOL 17 GM PKG PEG ONE; POTASSIUM CHLOR 20 MEQ PREMIX 100 ML IV PRN; POTASSIUM CHLOR 40 MEQ PREMIX 100 ML IV PRN; POTASSIUM CHLORIDE 20 MEQ CONTROLLED RELEASE TAB PO ONE; POTASSIUM CHLORIDE 25 MEQ EFFERVESCENT TAB PEG ONE; POTASSIUM CHLORIDE 25 MEQ EFFERVESCENT TAB PO ONE; POTASSIUM CHLORIDE 25 MEQ EFFERVESCENT TAB PO PRN; POTASSIUM CL 40 MEQ/30 ML LIQ UDC NG ONE; POTASSIUM CL 40 MEQ/30 ML LIQ UDC PO ONE; POTASSIUM CL 40 MEQ/30 ML LIQ UDC PO/TUBE ONE; POTASSIUM CL 40 MEQ/30 ML LIQ UDC PO/TUBE PRN; POTASSIUM CL 40 MEQ/30 ML LIQ UDC TUBE ONE; POTASSIUM PHOSPHATE INJ 30 MMOL in SODIUM CHLOR 0.9% 250 ML INJ 250 ML IV PRN; POTASSIUM PHOSPHATE MONOBASIC 500 MG TAB PO PRN; POTASSIUM PHOSPHATE MONOBASIC 500 MG TAB PO/TUBE PRN; PREV30TA3 NG; PROM12.54 PO; PROM25TA5 PO; PROPOFOL 1000 MG/100 ML INJ 100 ML ONE; PROPOFOL 1000 MG/100 ML IV SCH; PROPOFOL 200 MG/20 ML AMP IV ONE; PROPOFOL 500 MG/50 ML INJ 50 ML ONE; PROPRANOLOL HCL 10 MG TAB PEG SCH; PROPRANOLOL HCL 10 MG TAB PO SCH; RESP: ACETYLCYSTEINE 10% 30 ML NEB NEB PRN; ROCURONIUM INJ 50 MG/5 ML VIAL IV ONE; SOD PHOSPHATE/SOD BIPHOSPHATE (ADULT) ENEMA 133ML PR PRN; SODIUM CHLOR 0.9% 1000 ML INJ 1,000 ML IV ONE; SODIUM CHLOR 0.9% 1000 ML INJ 1,000 ML IV SCH; SODIUM CHLOR 0.9% 250 ML INJ 250 ML IV ONE; SODIUM CHLORID 0.9% 500 ML INJ 500 ML IV ONE; SODIUM CHLORID 0.9% 500 ML IV SCH; SODIUM PHOSPHATE INJ 30 MMOL in SODIUM CHLOR 0.9% 250 ML INJ 240 ML IV PRN; SUCCINYLCHOLINE CHLORIDE 200 MG/10 ML VIAL ONE; VANCOMYCIN INJ 1,000 MG in SODIUM CHLOR 0.9% 250 ML INJ 250 ML IV ONE; VANCOMYCIN INJ 1,000 MG in SODIUM CHLOR 0.9% 250 ML INJ 250 ML IV SCH; VANCOMYCIN INJ 1,250 MG in SODIUM CHLOR 0.9% 250 ML INJ 250 ML IV SCH; VECURONIUM BROMIDE 10 MG VIAL ONE; Vancomycin Consult Pharmacy 1 EA OTHER SCH; WARFARIN SOD 1 MG TAB PO ONE; WARFARIN SOD 1 MG TAB PO SCH; WARFARIN SOD 2 MG TAB PO ONE; WARFARIN SOD 2 MG TAB PO SCH; WARFARIN SOD 3 MG TAB PO SCH; WARFARIN SOD 4 MG TAB PO ONE; WARFARIN SOD 4 MG TAB PO SCH; WARFARIN SOD 5 MG TAB PO SCH; WARFARIN SOD 6 MG TAB PO SCH; WARFARIN SOD 7.5 MG TAB PO ONE; ceFAZolin 2 GM PREMIX 50 ML IV ONE; diphenhydrAMINE HCL 25 MG CAP PO PRN; fentaNYL CITRATE 250 MCG/5 ML AMP IV PUSH ONE; fentaNYL CITRATE 250 MCG/5 ML AMP ONE; fentaNYL DRIP 250 ML IV SCH; guaiFENesin/CODEINE SYRUP 200 MG/20 MG/10 ML CUP PEG ONE; metroNIDAZOLE 500 MG INJ 100 ML IV ONE; oxyCODONE HCL ORAL CONC 20 MG/ML SYRINGE PO PRN
--- NOTE | 2017-05-05 18:02 | HHI.DS ---
Summary Note Date of : Apr 11, 2017 Time Of : 1230 Admission Date Dec 21, 2015 at 08:07 Admitting Diagnosis brain lesions, altered mental status Diagnosis at Time of : (1) CVA (cerebral vascular accident) ICD Code: I63.9 - Cerebral infarction, unspecified (2) A-fib ICD Code: I48.91 - Unspecified atrial fibrillation (3) DM (diabetes mellitus) ICD Code: E11.9 - Type 2 diabetes mellitus without complications (4) Hyponatremia ICD Code: E87.1 - Hypo-osmolality and hyponatremia Procedures 07/22/2016 Wide excision of sacral skin wound, biopsy of the cavity lining and debridement. PEG removal and Gj tube placement 07/29/16 VAC changes- M-W-F 10/23/16, 11/18, 12/31- GJ tube replacement 01/02/16 PEG placement 01/02/16 tracheostomy 02/25/17 PEG replacement 03/03/17 Cystoscopy and palliative transurethral resection of bladder tumor greater than 5cm originating from the right bladder wall Brief History 59year-old male with past medical history of paroxysmal atrial fibrillation, hypertension, stage IIIa non-Hodgkin's lymphoma (s/p chemotherapy with Rituxan, [facility] 2014) presented to [facility] emergency department on 12/20 with altered mental status. When he woke up of 4 o'clock, the patient had some right facial droop associated with headaches. CT scan of the brain showed no focal or acute intracranial hemorrhage. However, there is an new area of decreased density in the left occipital lobe, suggestive of recent non hemorrhagic infarction and a decreased density in the previously noted right occipital lobe which had increased in size. The patient was recently admitted on December 06 with similar presentation and he had a right occipital juan jose hole brain biopsy done by Dr. Marin on December 13. The pathology results showed acute infarction without evidence of lymphoma. On this admission, the patient became obtunded, had sonorous respirations and can would not follow any commands. He was subsequently intubated by the emergency department physician. MRI of the brain was obtained which showed a new area of restricted diffusion within the left occipital lobe suggesting acute infarction. EKG on arrival showed A-fib with RVR at rate of 114 beats per minute. Imaging Last Impressions Chest X-Ray 01/20/17 0600 Signed Impressions: Service Date/Time: Friday, January 20, 2017 04:22 - CONCLUSION: 1. Bibasilar patchy densities, unchanged. 2. Tracheostomy tube unchanged. Mikie Vargas MD Head CT 01/09/17 0000 Signed Impressions: Service Date/Time: December 17:43 - CONCLUSION: 1. No acute hemorrhage or mass effect. 2. 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 3. Atrophy. Gerald Mukherjee MD CT Angiography 01/09/17 0000 Signed Impressions: Service Date/Time: December 17:49 - CONCLUSION: 1. No evidence of pulmonary emboli. 2. Patchy consolidation in both posterior lower lobes right greater than left. This could represent pneumonia. 3. 2 small noncalcified pulmonary nodules which are nonspecific finding. Short-term CT followup is recommended beginning in 6 months with a noncontrast outpatient CT. Gerald Mukherjee MD Tube Change 12/31/16 0000 Signed Impressions: Service Date/Time: Saturday, December 31, 2016 16:35 - CONCLUSION: Uncomplicated gastrojejunostomy tube exchange as above. Moises Ramírez MD Tube Check 12/04/16 0000 Signed Impressions: Service Date/Time: Sunday, December 04, 2016 17:58 - CONCLUSION: Uncomplicated tube injection as above. the tube is in good position and functions normally. Moises Ramírez MD Abdomen X-Ray 08/31/16 0000 Signed Impressions: Service Date/Time: Wednesday, August 31, 2016 16:36 - CONCLUSION: 1. No acute findings. Mild constipation. Durga Dotson MD Abdomen/Pelvis CT 04/12/16 0000 Signed Impressions: Service Date/Time: Tuesday, April 12, 2016 20:52 - CONCLUSION: 1. 6.4 cm necrotic mass or abscess in the soft tissues posteriorly just below the sacrum associated with some bony destructive change of the lower most sacrum and coccyx with inflammatory changes extending into the ischiorectal fossa and into the presacral retroperitoneum predominantly on the left side. There is associated fairly marked mural thickening of the anal verge and rectum. 2. There is gastrostomy and Arevalo catheter present. Stable abdominal aortic aneurysm. Durga Dotson MD Head Magnetic Resonance Angiography 03/05/16 0000 Signed Impressions: Service Date/Time: Saturday, March 05, 2016 09:26 - CONCLUSION: Persistent high-grade subtotal occlusive stenotic lesions in the distal right vertebral artery and proximal basilar artery with significant improvement in flow and recanalization following initial presentation of thrombosis. Stable interstitial circulation without significant stenosis. Ernesto Kulkarni MD Brain MRI 03/05/16 0000 Signed Impressions: Service Date/Time: Saturday, March 05, 2016 09:26 - CONCLUSION: Evolving brainstem and bilateral occipital lobe infarcts with evidence of subacute hemorrhagic products. There is decreasing restricted diffusion and increasing loss of volume characteristic of a subacute to chronic infarct. No evidence of acute infarct, acute hemorrhage mass or edema. Ernesto Kulkarni MD Neck Magnetic Resonance Angiography 12/22/15 1445 Signed Impressions: Service Date/Time: Tuesday, December 22, 2015 09:22 - CONCLUSION: Variant origin of the left vertebral artery from the aortic arch. No evidence of carotid stenosis. Glen Zamora MD Head/Brain Mag Res Venography 12/22/15 0000 Signed Impressions: Service Date/Time: Tuesday, December 22, 2015 09:22 - CONCLUSION: Normal MRV. Jonel Jones Jr., MD Hospital Course Pertinent ICU Course: 12/22/15: No events overnight. Sedated with Diprivan and intubated. For MRA brain , carotids and MRV brain today . 12/22: Patient remains intubated, off sedation. 12/23: No events overnight. Remains off sedation. Withdraws to pain. 12/24: Remains intubated, on no sedation. For repeat MRI brain today 12/25: Tolerated PSV for 4-5 hour yesterday. 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 12/26: Tolerating PSV. Opens eyes to voice, reportedly has been blinking to command but isn't doing so currently even when family encouraging him. 12/27: Continues to tolerate PSV. Follows commands via ocular movements. Weak withdraw LUE noxious stimuli. 12/28: Tolerating PSV 10/5. Family desires trach - warfarin placed on hold. MRI today per neurology. 12/29: Tolerating tube feeds. INR 2.2. Sputum culture with pansensitive klebsiella. 12/30: No neuro change. Continues to tolerate PSV 12/31: General surgery and GI planning trach / PEG tomorrow. Has low grade temp 100.2. 01/01: On full vent support. No significant neurologic changes. s/p bedside Trach and PEG. 01/02: Resuming PSV trials. Restart tube feeds. 01/03; On continuous trach collar since yesterday evening. No significant secretions. 01/04 No events overnight. Patient has been on TP's x 2 days currently on 28% FIO2. T: 100.5 last night. 01/09 Reconsult: Halicat was called as patient was found hypoxic with sats 70%, tachycardic HR 140's patient was subsequently transferred to [facility] and placed back on ventilator. Trach changed to size #6 XLT. Patient was found to have fever with T 102.1. CXR this afternoon showed mild chronic parenchymal changes. He was noted to have some bloody secretions from trach last 2 days. 01/10 Patient Patient is sedated with Diprivan and on ventilator via trach. Had T :102.5 at midnight. CTA chest last night showed no PE, CT brain no acute findings. 01/11 Patient remains on ventilator via trach and on Fentanyl infusion for sedation. T:99.8 01/12 Patient has been on CPAP 10/5 with 35% FIO2 overnight. Afebrile, tolerating tube feeds. 01/13 Patient remains on CPAP overnight. Afebrile. 01/14 Patient tolerated TP's all day yesterday placed on CPAP PS 5/PEEP:5 with 35 % FIO2 overnight. Afebrile. 01/15: Tolerated TP several hours yesterday, CPAP at night. No acute events overnight 01/16: Remained on TPs last 24 hours. No acute events reported last night. Discussed with ID yesterday because of clinical improvement continuing cefepime 01/17: Afebrile. On T piece 60 hours. J-tube currently plugged. Will ask IR if they can intervene. Tolerating tube feeding otherwise. Positive BM. 01/18: Afebrile. On TPs 84 hours. J-tube was unplugged yesterday. Recommended tube feeding through G-tube only. Medications per G-tube. Neurologically unchanged 01/19 - low-grade fevers overnight currently 100. On TPs greater than 100 hours. Tolerating tube feeding. Neurologically unchanged. 01/21/16 No events overbright. On TP's with 35-50% FIO2. Afebrile. 01/21/16 to 04/08/17: no changes in mental status or improvements. patient remained in an inpatient facility on the hospital floor without meaningful improvements. family resistant to withdraw. patient diagnosed with bladder cancer and underwent radiation therapy for this despite unstageable decubitus at family's persistence. 04/08/2017: reconsulted for tachypnea and possible sepsis. patient was seen and evaluated by Dr. Kenny overnight and felt to be stable to remain on the floor. Today, persistent tachypnea and tachycardia, although no desaturation or change in condition. Patient well-known to the [employer] and has had no mental status change or neurologic improvements in over 1 year. Patient now with evidence of likely wide-spread metastatses to the liver along with multiple other active medical problems. The patient on my exam today appears unchanged over months. he is tachypneic and tachycardic, although not diaphoretic. fever curve is low and he is growing resistant PSAE in the sputum which is being covered. the patient is unable to provide any information due to his clinical condition. family continues to press for aggressive measures in this patient with no hope for meaningful recovery, both neurologic and oncologic. 04/09: no changes. still tachypneic and tachycardic. multiple long family discussions today with son and daughter who are medical decision-makers. last night patient was made full DNR. Today they ask to make him palliative with comfort measures on the conditions that: 1) if we can medically feed him, provide him with some feeding. 2) he can remain in his ICU bed for now, 3) we can attempt to pursue liver biopsy for confirmation of the metastatic disease. I let them know that medically, he is not appropriate for tube feeds due to intolerance and the possibility of a tube feed leak around the PEG tube, and they understand. I am not sure if he will remain stable enough to undergo liver biopsy, but I let them know we can entertain that idea and see if he is stable enough to undergo this.Otherwise, at their request, I have discontinued all life-saving measures and pursued comfort care with prn ativan and morphine. 04/10: transition to comfort measures done overnight. patient appears comfortable on my assessment, although remains tachycardic and in slight distress. RN at bedside treating distress on my evaluation. too unstable today to pursue liver biopsy. 04/11: remains comfortable. frequent morphine and ativan use. febrile which responded to tylenol. patient comfortably with family at bedside. Lyndon Navarro MD May 05, 2017 18:02
== END | disposition expired | DRG 3 ==
LOC: NEPC 12-21 05:38 → NEDA 12-21 08:07 → HIME 12-21 12:35 → N05A 01-09 10:42 → N03A 04-14 16:43 → N05A 04-22 22:58 → N03B 11-18 10:36 → N05A 11-19 20:52 → HIMW 01-09 14:45 → N07A 01-28 02:53 → N03A 04-08 11:46
PROVIDERS: ADMIT Internal Medicine Critical Care Medicine; ATTEND Internal Medicine Critical Care Medicine
PROC: 5A1955Z Respiratory Ventilation, Greater than 96 Consecutive Hours (ICD-10-PCS; 2015-12-21)
PROC: 0BH17EZ Insertion of Endotracheal Airway into Trachea, Via Natural or Artificial Opening (ICD-10-PCS; 2015-12-21)
PROC: 0DH63UZ Insertion of Feeding Device into Stomach, Percutaneous Approach (ICD-10-PCS; 2016-01-02)
PROC: 0DJ08ZZ Inspection of Upper Intestinal Tract, Via Natural or Artificial Opening Endoscopic (ICD-10-PCS; 2016-01-02)
PROC: 0BJ08ZZ Inspection of Tracheobronchial Tree, Via Natural or Artificial Opening Endoscopic (ICD-10-PCS; 2016-01-02)
PROC: 0B113F4 Bypass Trachea to Cutaneous with Tracheostomy Device, Percutaneous Approach (ICD-10-PCS; principal; 2016-01-02 14:46)
PROC: 30233N1 Transfusion of Nonautologous Red Blood Cells into Peripheral Vein, Percutaneous Approach (ICD-10-PCS; 2016-04-17)
PROC: 0HB6XZZ Excision of Back Skin, External Approach (ICD-10-PCS; 2016-07-22)
PROC: 0HB6XZX Excision of Back Skin, External Approach, Diagnostic (ICD-10-PCS; 2016-07-22)
PROC: 0DHA3UZ Insertion of Feeding Device into Jejunum, Percutaneous Approach (ICD-10-PCS; 2016-07-30)
PROC: 0DP63UZ Removal of Feeding Device from Stomach, Percutaneous Approach (ICD-10-PCS; 2016-07-30 09:15)
PROC: 0D2DXUZ Change Feeding Device in Lower Intestinal Tract, External Approach (ICD-10-PCS; 2016-08-14)
PROC: 0D2DXUZ Change Feeding Device in Lower Intestinal Tract, External Approach (ICD-10-PCS; 2016-08-14)
PROC: 0D2DXUZ Change Feeding Device in Lower Intestinal Tract, External Approach (ICD-10-PCS; 2016-12-20)
PROC: 0D2DXUZ Change Feeding Device in Lower Intestinal Tract, External Approach (ICD-10-PCS; 2016-12-31)
PROC: 0HDRXZZ Extraction of Toe Nail, External Approach (ICD-10-PCS; 2017-02-06)
PROC: 0D2DXUZ Change Feeding Device in Lower Intestinal Tract, External Approach (ICD-10-PCS; 2017-02-14)
PROC: 0D20XUZ Change Feeding Device in Upper Intestinal Tract, External Approach (ICD-10-PCS; 2017-02-25)
PROC: 0TBB8ZX Excision of Bladder, Via Natural or Artificial Opening Endoscopic, Diagnostic (ICD-10-PCS; 2017-03-03)
DX: I63.02 Cerebral infarction due to thrombosis of basilar artery (principal); G93.41 Metabolic encephalopathy; A41.9 Sepsis, unspecified organism; J15.212 Pneumonia due to Methicillin resistant Staphylococcus aureus; J15.0 Pneumonia due to Klebsiella pneumoniae; J15.1 Pneumonia due to Pseudomonas; J96.21 Acute and chronic respiratory failure with hypoxia; N17.9 Acute kidney failure, unspecified; E44.0 Moderate protein-calorie malnutrition; R40.3 Persistent vegetative state; C67.4 Malignant neoplasm of posterior wall of bladder; E87.0 Hyperosmolality and hypernatremia; Z99.11 Dependence on respirator [ventilator] status; J98.11 Atelectasis; K94.23 Gastrostomy malfunction; E87.1 Hypo-osmolality and hyponatremia; D62 Acute posthemorrhagic anemia; N39.0 Urinary tract infection, site not specified; K94.22 Gastrostomy infection; K52.1 Toxic gastroenteritis and colitis; K94.13 Enterostomy malfunction; L89.154 Pressure ulcer of sacral region, stage 4; G93.89 Other specified disorders of brain; I48.0 Paroxysmal atrial fibrillation; E11.65 Type 2 diabetes mellitus with hyperglycemia; I10 Essential (primary) hypertension; F17.210 Nicotine dependence, cigarettes, uncomplicated; F41.9 Anxiety disorder, unspecified; R13.10 Dysphagia, unspecified; Z51.5 Encounter for palliative care; E86.1 Hypovolemia; E86.0 Dehydration; K21.0 Gastro-esophageal reflux disease with esophagitis; K25.9 Gastric ulcer, unspecified as acute or chronic, without hemorrhage or perforation; E87.6 Hypokalemia; F43.21 Adjustment disorder with depressed mood; E87.70 Fluid overload, unspecified; R31.0 Gross hematuria; K59.00 Constipation, unspecified; B95.2 Enterococcus as the cause of diseases classified elsewhere; B96.1 Klebsiella pneumoniae [K. pneumoniae] as the cause of diseases classified elsewhere; E78.5 Hyperlipidemia, unspecified; I48.2 Chronic atrial fibrillation; L03.031 Cellulitis of right toe; I69.392 Facial weakness following cerebral infarction; T36.95XA Adverse effect of unspecified systemic antibiotic, initial encounter; Y95 Nosocomial condition; D64.9 Anemia, unspecified; L60.0 Ingrowing nail; R47.01 Aphasia; Z85.72 Personal history of non-Hodgkin lymphomas; Z92.21 Personal history of antineoplastic chemotherapy; Z79.84 Long term (current) use of oral hypoglycemic drugs; Z74.01 Bed confinement status
CPT/HCPCS: 31600; 36430; 36600; 49450; 49452; 49465; 51702; 70450; 70544; 70546; 70548; 70551; 70553; 71010; 71260; 71275; 74000; 74177; 74183; 76705; 76775; 76937; 76999; 77263; 77295; 77300; 77334; 77336; 77387; 77412; 77427; 80048; 80053; 80069; 80076; 80177; 80202; 81001; 82272; 82565; 82728; 82805; 82948; 83036; 83540; 83550; 83605; 83735; 83880; 83930; 83935; 84100; 84132; 84145; 84443; 84484; 85007; 85014; 85018; 85025; 85027; 85610; 85730; 86403; 86850; 86900; 86901; 86920; 86922; 87015; 87040; 87070; 87077; 87086; 87102; 87106; 87116; 87147; 87186; 87205; 87206; 87449; 87493; 87641; 88305; 88307; 88341; 88342; 93005; 94002; 94003; 94640; 94664; 94667; 94668; 94760; 94762; 95819; 96365; 96375; 96376; 99152; 99153; 99223; A6211; A7520; A7521; A9579; C1769; C1874; C1887; C1894; C9113; J0295; J0330; J0692; J0696; J1644; J1650; J1815; J1940; J2060; J2248; J2250; J2270; J2405; J2543; J3010; J3370; J3480; J7030; J7040; J7042; J7050; J7070; J7120; J7608; J7613; J7614; J7644; P9016; P9040; P9047; Q9963; Q9967